=== PATIENT | male | born 1965 | race African-American/Black ===

== ENCOUNTER 2019-06-04 17:25 | Emergency (ER) | payer OTHER, SELFPAY ==
[2019-06-04 17:26] VITALS: BP 142/93; PULSE 61; RESP 18; TEMP 36.6; O2SAT 98; BMI 33.3
--- NOTE | 2019-06-04 17:46 | ED.DCSUM_ITS ---
History of Present Illness Chief Complaint: Cough Informant: Patient Onset: Weeks - 1 Context: Gradual Onset Timing: Continuous Quality: productive of phlegm Location: sore right ribcage x 4d Current Severity: Moderate Maximum Severity: Moderate Worsened by: - - coughing Relieved by: - - breathing easy Associated Symptoms: Nasal Congestion - and nonpurulent rhinorrhea, Chest Pain, Productive Cough. Negative for: Headache, Sinus Pressure, Nausea, Vomiting, Diarrhea, Shortness of Breath, Hemoptysis Narrative: Patient is a [employer], he has felt like he had a cold for the past week, he was advised to stay home from work which she has been doing given the national coronavirus emergency. He is healthy otherwise except for high blood pressure that he takes medication for. He has no asthma. He has had no fevers or shortness of breath. He denies any neck stiffness, headache, neurologic symptoms except for tingling in both of his hands when he wakes up for the last 3 mornings, it goes away when he shakes them after couple minutes. He presents mainly because of pain and soreness in his right chest wall that started 4 days ago, hurts to cough, not necessarily to take a deep breath. He denies any dyspnea that he has developed in that period of time. No recent travel out of the area. He works in [place]. No known contact with a coronavirus infected person. - Past Medical History (1) Hypertension Status: Chronic Past Medical History - Allergies and Home Meds Allergies/Adverse Reactions: Allergies Penicillins Allergy (Verified 06/04/19 17:27) PT UNSURE OF REACTION shellfish derived Allergy (Verified 06/04/19 17:27) Jesús [facility]ician: [facility],Out of [Primary Care Provider] - Lives: Spouse/ Significant Other Smoking Status: Former smoker Review of Systems General: Denies: Chills, Fever, Sweats Eyes: Denies: Visual changes - bilaterally, Diplopia ENT: Reports: Rhinorrhea. Denies: Bilateral ear pain, Sore throat Cardiovascular: Reports: Chest pain. Denies: Palpitations Respiratory: Reports: Cough, Sputum - Occasional since the beginning of the illness. Denies: Dyspnea, Dyspnea on exertion Gastrointestinal: Denies: Abdominal pain, Nausea, Vomiting, Diarrhea, Melena, Hematochezia Genitourinary: Denies: Dysuria, Hematuria, Frequency Musculoskeletal: Denies: Neck pain, Back pain, Swelling, Extremity Pain Skin: Denies: Rash, Wounds Neurological: Denies: Headache, Weakness, Numbness Physical Exam Vital Signs/Narrative: Vital Signs Temp Pulse Resp BP Pulse Ox 06/04/19 17:26 97.8 F 61 18 142/93 H 98 Inital Vital Signs reviewed: Yes General: Well nourished, Well developed, - - Well-appearing, NAD, conversive in full sentences Head: Normocephalic, Atraumatic Eyes: Perrl, EOMI Nose: Normal Inspection, Congestion. Negative for: Purulent Drainage Mouth/Throat: Normal Inspection, No Posterior Erythema, Airway Patent Neck: Supple, Nontender, No Lymphadenopathy, No Meningismus Cardiovascular: Regular rate, Regular rhythm, No murmurs Respiratory: No distress, CTA bilaterally, Chest tenderness - Right anterior- lateral chest wall, near axilla, no crepitance or step-off or signs of injury/ecchymosis Abdomen: Soft, Nontender, Nondistended, Normal bowel sounds Skin: Normal color, No rash, No Trauma Neurological: Alert, Oriented x3, Cranial nerves II-XII grossly intact, Normal Strength, Normal Sensation Psychological: Normal affect, Normal Mood Diagnostic/Tx/Re-eval - Medical Decision Making Exam is normal, except for tenderness in multiple intercostal spaces, fairly well localized. His vital signs are normal and his pulse ox is 98% on room air. Patient is reassured that this is all consistent with intercostal muscle strain. No x-ray is indicated at this time for this patient. He was given a shot of Toradol and advised to use anti-inflammatories as needed at home. He is comfortable with that plan given appropriate discharge instructions. Patient does not have COVID-19 exposure and is not critically ill or clinically septic, has not traveled to/from a region with a CDC level 2 or 3 travel health notice, vital signs are stable without hypoxia, is not ill enough to require admission to the hospital, and at this time does not meet current [facility] requirements for testing for COVID-19. ED Disposition - Plan for ED Patient: Disposition: Home or Assisted Living Diagnosis: Intercostal muscle strain, Viral URI with cough Instructions: ED Upper Resp Infec No Abx Tx Referrals: [facility] Doctor,Out of [Primary Care Provider] - As Needed Additional Instructions: -See additional attached quarantine instructions for what to do with regards to the possibility of coronavirus infection, given that you do not currently meet the [facility] requirements for testing since they require us to conserve the limited testing ability for the sickest, hospitalized patients.
[2019-06-04] MEDS: Ketorolac 30 MG/ML Syringe IM (17:54)
[2019-06-04 17:59] VITALS: O2SAT 97
[2019-06-04 18:31] VITALS: RESP 16
== END 2019-06-04 18:32 | disposition home or self-care (01) ==
LOC: ED 18:10
PROVIDERS: Emergency Provider Emergency Medicine
DX: S29.011A Strain of muscle and tendon of front wall of thorax, initial encounter (principal); J06.9 Acute upper respiratory infection, unspecified; X58.XXXA Exposure to other specified factors, initial encounter; Y93.9 Activity, unspecified; Y92.9 Unspecified place or not applicable; I10 Essential (primary) hypertension; Z79.899 Other long term (current) drug therapy; Z87.891 Personal history of nicotine dependence
CPT/HCPCS: 96372; 99282

== ENCOUNTER → 2020-12-25 12:28 | Outpatient (CLI) | payer OTHER, SELFPAY ==
[2020-12-25 15:26] LABS: ALB/GLOB Ratio 0.8 RATIO (0.9-2.4); AST(SGOT) 25 U/L (15-37); Alanine Aminotransfer ALT/SGPT 44 U/L (16-61); Albumin, Serum 3.4 g/dL (3.2-5.0); Alkaline Phosphatase 66 U/L (45-117); Anion Gap 7 (5-15); BUN 18 mg/dL (7-18); BUN/Creat Ratio 15.1 RATIO (10-20); Chloride 101 mmol/L (98-107); Cholesterol 167 mg/dL (200); Creatinine, Serum 1.19 mg/dL (0.70-1.30); EST Glomerular Filtration Rate 67 mL/min (>60); Est Glom Filt Rate - Afr Amer 81 mL/min (>60); Globulin 4.2 g/dL (2.2-4.2); Glucose 90 mg/dL (74-106); High Density Lipoprotein 41 mg/dL; PSA,Total - Annual Screen 0.58 ng/mL (0.00-4.00); Potassium 3.9 mmol/L (3.5-5.1); Protein, Total 7.6 g/dL (6.4-8.2); Sodium Level 136 mmol/L (136-145); Triglycerides 171 mg/dL; Very Low Density Lipoprotein 34 mg/dL (5-40)
== END ==
LOC: MFPLAB 12:29
PROVIDERS: PCP Family Medicine; Referring Provider Family Medicine; Visit Provider Family Medicine
DX: E78.5 Hyperlipidemia, unspecified (principal); Z12.5 Encounter for screening for malignant neoplasm of prostate
CPT/HCPCS: 36415; 80053; 80061; 84153; G0103

== ENCOUNTER → 2021-07-17 | Outpatient (CLI) | payer OTHER, SELFPAY ==
--- NOTE | 2021-07-17 14:06 | RAD_ITS ---
STUDY: X-RAY CHEST REASON FOR EXAM: Male, 56 years old. WHEEZING TECHNIQUE: PA and lateral views of the chest. COMPARISON: None. FINDINGS: There is an 8.5 cm x 5.7 cm pleural mass along the inferior lateral aspect of the right hemithorax. Correlation with a CT scan is recommended. There is no demonstrated pleural abnormality. Normal size heart. Normal mediastinum and tesha. Normal visualized pulmonary arteries. There is atherosclerotic tortuosity of the aortic arch and descending thoracic aorta. There are degenerative changes of the visualized thoracic spine. Normal visualized ribs, clavicles, and shoulders. There is no demonstrated abnormality of the visualized soft tissue structures of the upper abdomen. RAD/Chest PA and Lateral IMPRESSION: 8.5 cm x 5.7 cm pleural-based mass along the lateral aspect of the right pleural surface as described. Correlation with a CT scan of the thorax is recommended. Electronically Signed: Tom Raymond MD at 14:24 EDT ,
== END | disposition home or self-care (01) ==
PROVIDERS: PCP Family Medicine; Referring Provider Family Medicine; Visit Provider Family Medicine
DX: R06.2 Wheezing (principal)
CPT/HCPCS: 71046

== ENCOUNTER 2021-12-07 13:37 | Inpatient (IN) | payer OTHER, SELFPAY ==
[2021-12-07] VITALS (14 sets, daily range): BP systolic 117–137; BP diastolic 78–116; PULSE 60–109; RESP 16–36; TEMP 36.1–36.9; O2SAT 88–99; BMI 36.6; BMI 36.7
--- NOTE | 2021-12-07 13:53 | RAD_ITS ---
STUDY: X-RAY CHEST REASON FOR EXAM: Male, 56 years old. cough TECHNIQUE: XR Chest 2 Views COMPARISON: 07.17.21 FINDINGS: There is atherosclerotic calcification of the aortic arch with tortuosity. There are diffuse degenerative changes of the visualized thoracic spine. There is degenerative osteoarthritis of the bilateral shoulders. Right lateral pleural-based mass measures 11.5 x 6.1 cm. There is borderline cardiomegaly. Normal mediastinum and tesha. Normal visualized pulmonary arteries. There is no demonstrated abnormality of the visualized soft tissue structures of the upper abdomen. RAD/Chest PA and Lateral IMPRESSION: Enlarging right lung lesion. CT is advised to evaluate. Neoplasm cannot be excluded and is of concern. Electronically Signed: Jaron Mijares MD at 15:34 EDT ,
--- NOTE | 2021-12-07 13:57 | EDS_ITS ---
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 Patient states that when he walks from room to room he feels out of breath, tired. He has not started radiation at this time, he denies any actual fevers or chills. Denies any weight gain. Patient sees [facility] for the renal cancer [facility] <JARVIS Barajas - Last Filed: 12/07/21 17:09> [facility] Medical History (Updated 12/07/21 @ 15:[address] Speedy Bass MD) Atrial fibrillation Cancer Chest pain Congestive heart failure (CHF) CPAP (continuous positive airway pressure) dependence Irregular heart beat Sleep apnea Home Medications amlodipine 5 mg tablet (Norvasc) 5 mg PO DAILY 06/04/19 [History Last Taken Unknown] naproxen 500 mg tablet 500 mg PO DAILY PRN PRN Pain Or Fever 06/04/19 [History Last Taken Unknown] albuterol 90 mcg/actuation aerosol inhaler mcg inhalation 12/07/21 [History Last Taken Unknown] cabozantinib 20 mg tablet 20 mg PO DAILY 12/07/21 [History Last Taken Unknown] carvedilol 6.25 mg tablet 6.25 mg PO BID 12/07/21 [History Last Taken Unknown] cyclobenzaprine 10 mg tablet 10 mg PO TID PRN Spasms 12/07/21 [History Last Taken Unknown] ferrous sulfate 325 mg (65 mg iron) tablet 325 mg PO BID 12/07/21 [History Last Taken Unknown] ondansetron HCl 8 mg tablet 8 mg PO Q8H PRN Nausea 12/07/21 [History Last Taken Unknown] pantoprazole 40 mg tablet,delayed release 40 mg PO DAILY 12/07/21 [History Last Taken Unknown] rosuvastatin 40 mg tablet 40 mg PO DAILY 12/07/21 [History Last Taken Unknown] spironolactone 25 mg tablet 12.5 mg PO DAILY 12/07/21 [History Last Taken U nknown] torsemide 40 mg tablet 40 mg PO DAILY 12/07/21 [History Last Taken Unknown] warfarin 10 mg tablet 7 mg PO DAILY Check with primary doctor 12/07/21 [History Last Taken Unknown] Allergy/AdvReac Type Severity Reaction Status Date / Time aspirin [ASA] Allergy Other Verified 12/07/21 13:38 Penicillins Allergy PT UNSURE Verified 06/04/19 17:27 OF REACTION shellfish derived Allergy Hives Verified 06/04/19 17:27 Social History Smoking Status: Current every day smoker tobacco type: cigarettes ROS <JARVIS Barajas - Last Filed: 12/07/21 17:09> ROS ED ROS Narrative Constitutional: Negative for fever, chills, weight loss. Positive generalized weakness Eyes: Negative for vision loss, vision change, double vision ENT: Negative for any sore throat, ear pain, congestion Cardiovascular: Negative for any chest pain, tightness. Positive palpitation Respiratory: Negative for any sputum production, hemoptysis. Positive for cough, dyspnea, dyspnea on exertion, orthopnea Gastrointestinal: Negative for any abdominal pain, nausea, vomiting, diarrhea, constipation, blood in stool, blood in vomit : Negative for any urinary frequency, dysuria, retention, blood in urine Muscle skeletal: Negative for any muscle joint pain, stiffness, myalgias, arthralgias, neck pain, back pain Neurological: Negative for any headache, syncope, numbness or tingling, dizziness Skin: Negative for any rashes, lumps, itching, abrasions, lacerations Psychiatric: Negative for any depression, anxiety, stress, suicidal ideation, homicidal ideation Hematologic: Negative for any easy bruising, excessive bruising, easy bleeding Allergies: Negative for any eczema, hives, rash EXAM <JARVIS Barajas - Last Filed: 12/07/21 17:09> Physical Exam Narrative Exam Narrative: Vital signs reviewed. HEET: Head normocephalic atraumatic, TMs clear bilaterally. Posterior pharynx is clear, moist mucous membranes. Nares clear bilaterally. Neck: Supple with no lymphadenopathy or tenderness. No signs of meningismus, negative jolt sign. Cardiac: Regular rate and rhythm no murmurs gallops or rubs, equal peripheral pulses bilaterally. Respiratory: Patient shows diminished lung sounds, patient does have crackles/rales to the lower lobes. No chest tenderness. Patient is tachypneic Abdomen: Soft, nontender, nondistended. No abdominal bruit or pulsatile masses. No hepatosplenomegaly Extremities: No peripheral edema, no signs of gross trauma or deformity. Active full range of motion of all extremities. Neuro: Cranial nerves II through XII intact, no focal neurological deficits. Skin: Clean dry and intact with no rash, purpura, petechiae, vesicles or pustules. Backs/flank: No CVA tenderness, no midline spinal tenderness, no deformity. Psych: Normal mood and affect. No SI, HI or acute psychosis. Const Vital Signs: 12/07/21 13:38 12/07/21 14:19 12/07/21 14:11 Temperature 97.2 F L Temperature Source Temporal Pulse Rate 93 103 H Respiratory Rate 24 H 36 H Respiratory Effort Labored Accessory Muscle Use Respiratory Pattern Tachypnea Blood Pressure 126/97 H Blood Pressure Mean 106 Pulse Ox 99 Oxygen Delivery Method Room Air Oxygen Flow Rate (L/min) 12/07/21 14:11 12/07/21 14:53 12/07/21 14:56 Temperature Temperature Source Pulse Rate 108 H Respiratory Rate 21 H 20 H Respiratory Effort Respiratory Pattern Tachypnea Blood Pressure Blood Pressure Mean Pulse Ox 93 Oxygen Delivery Method Room Air Room Air Oxygen Flow Rate (L/min) 12/07/21 15:00 12/07/21 16:29 12/07/21 15:45 Temperature 98.4 F Temperature Source Temporal Pulse Rate 96 98 Respiratory Rate 18 24 H Respiratory Effort Respiratory Pattern Blood Pressure 135/96 H 134/78 H Blood Pressure Mean 109 96 Pulse Ox 98 97 88 Oxygen Delivery Method Room Air Nasal Cannula Room Air Oxygen Flow Rate (L/min) 2 <Dr. Speedy Bass MD - Last Filed: 12/07/21 16:50> Physical Exam Const Vital Signs: 12/07/21 13:38 12/07/21 14:19 12/07/21 14:11 Temperature 97.2 F L Temperature Source Temporal Pulse Rate 93 103 H Respiratory Rate 24 H 36 H Respiratory Effort Labored Accessory Muscle Use Respiratory Pattern Tachypnea Blood Pressure 126/97 H Blood Pressure Mean 106 Pulse Ox 99 Oxygen Delivery Method Room Air Oxygen Flow Rate (L/min) 12/07/21 14:11 12/07/21 14:53 12/07/21 14:56 Temperature Temperature Source Pulse Rate 108 H Respiratory Rate 21 H 20 H Respiratory Effort Respiratory Pattern Tachypnea Blood Pressure Blood Pressure Mean Pulse Ox 93 Oxygen Delivery Method Room Air Room Air Oxygen Flow Rate (L/min) 12/07/21 15:00 12/07/21 16:29 12/07/21 15:45 Temperature 98.4 F Temperature Source Temporal Pulse Rate 96 98 Respiratory Rate 18 24 H Respiratory Effort Respiratory Pattern Blood Pressure 135/96 H 134/78 H Blood Pressure Mean 109 96 Pulse Ox 98 97 88 Oxygen Delivery Method Room Air Nasal Cannula Room Air Oxygen Flow Rate (L/min) 2 MDM <JARVIS Barajas - Last Filed: 12/07/21 17:09> [facility] Lab Data Labs: Laboratory Results - last 24 hr 12/07/21 12/07/21 12/07/21 14:15 14:15 14:15 WBC 6.1 RBC 5.15 Hgb 16.0 Hct 46.6 MCV 90.5 MCH 31.1 MCHC 34.3 RDW Std Deviation 54.9 H RDW Coeff of Lizzie 16.5 H Plt Count 231 MPV 11.0 Immature Gran % (Auto) 0.300 Neut % (Auto) 70.8 H Lymph % (Auto) 23.4 [place] % (Auto) 4.3 Eos % (Auto) 0.7 Baso % (Auto) 0.5 Absolute Neuts (auto) 4.3 Absolute Lymphs (auto) 1.42 Nucleated RBC % 0 PT 19.3 H INR 1.7 Sodium 142 Potassium 3.5 Chloride 108 H Carbon Dioxide 25.0 Anion Gap 9 BUN 20 H Creatinine 1.27 Estim Creat Clear Calc 66.26 Est GFR (MDRD) Af Amer 75 Est GFR (MDRD) Non-Af 62 BUN/Creatinine Ratio 15.7 Glucose 135 H Calcium 9.6 Troponin I High Sens 45 B-Natriuretic Peptide 12/07/21 14:15 WBC RBC Hgb Hct MCV MCH MCHC RDW Std Deviation RDW Coeff of Lizzie Plt Count MPV Immature Gran % (Auto) Neut % (Auto) Lymph % (Auto) [place] % (Auto) Eos % (Auto) Baso % (Auto) Absolute Neuts (auto) Absolute Lymphs (auto) Nucleated RBC % PT INR Sodium Potassium Chloride Carbon Dioxide Anion Gap BUN Creatinine Estim Creat Clear Calc Est GFR (MDRD) Af Amer Est GFR (MDRD) Non-Af BUN/Creatinine Ratio Glucose Calcium Troponin I High Sens B-Natriuretic Peptide 686.4 H Radiography Diagnostic Testing: Clinical Impression(s) from Imaging Studies Chest X-Ray 12/07/21 13:53 IMPRESSION: Enlarging right lung lesion. CT is advised to evaluate. Neoplasm cannot be excluded and is of concern. Electronically Signed: Jaron Mijares MD at 15:34 EDT , Chest CTA 12/07/21 15:46 IMPRESSION: 1. There is an expansile destructive mass of the lateral 6th right rib measuring 77 x 54mm. Given the patients history, this is likely a metastatic bone focus. 2. No demonstrated pulmonary embolism or arterial dissection. 3. 58 mm mass of the right kidney is consistent with patient''s known history of renal cell carcinoma. Electronically Signed: Jaron Mijares MD at 16:52 EDT , EKG A. fib: Attestation: I personally reviewed and interpreted this EKG as follows: Comments: Atrial fibrillation with a rate of 100, QRS duration was 92 ms, there is no acute ST elevation, no acute infarct noted. Treatment and Re-Evaluation Narrative: Patient presents to the emergency department in mild respiratory distress, weakness over the last week. Patient also states that he thinks his A. fib is getting worse. Patient is in atrial fibrillation however is a controlled rate of 90-105. Patient is tachypneic, he did receive a full cardiac, respiratory work-up. Patient's labs show a troponin of 45 which is negative, patient's BNP was 686.4, this is elevated. Patient's remainder the labs are unremarkable. Patient's chest x-ray does show enlarging right lung lesion, CT is advised to evaluate, neoplasm cannot be excluded and is of concern. However this has been ongoing and he gets treatment at the [facility]. While patient was resting in the room, patient was 85% on room air, patient was then placed on 2 L. Patient was given 40 mg of IV Lasix. At this time I believe the patient would be best served in the hospital to be diuresed. Patient is agreeable with the plan. Upon talking to the hospitalist, they did request a CTA of the chest to rule out any pulmonary embolus.Patient CT of the chest shows expansive destructive mass of the lateral sixth rib measuring 77 x 54 mm. No demonstration of pulmonary embolism or artery dissection. There is also 58 mm mass in the right kidney which is consistent with the patient's known history of renal cell carcinoma. At this time, patient is now stable for admission for CHF exacerbation, hypoxia. Patient will be admitted to Dr. Pitts <Dr. Speedy Bass MD - Last Filed: 12/07/21 16:50> [facility] MDM Narrative Medical decision making narrative: Seen and evaluated independently and in conjunction with [facility]. Agree with notes above unless documented otherwise. Patient with palpitations and dyspnea that feels like his rapid A. fib felt in the past. However this time, he has been using a rescue inhaler that has been helping his breathing temporarily. He denies any thoracic pain except for the mass on his chest wall which is not new. On exam, he has expiratory wheezes and a few rhonchi at the bases. No peripheral edema nor calf tenderness. Poss mild JVD. Heart is irregular and mildly tachycardic around 105 occasionally up to 120 but for the most part in the low 100s. Patient was given albuterol did help but only transiently. Chest x-ray 1 view on my interpretation shows possibly mild CHF but not significantly different than his prior. There is also a right lung mass that is a little larger, he has had this previously scanned with CT we do not need to repeat that now since he is already being followed for that and due for radiation here soon. While getting albuterol, which is with supplemental oxygen, he became transiently somnolent and desatted down to 85%. He is not on home oxygen. We placed him on 2 L and he is at 98 for the most part, anywhere between 94-100. We are giving him IV diuretic, and plan is for admission to PCU. He did pull up an echocardiogram from 09/26/2021, done at [facility]. It showed systolic CHF with an EF of 40% and 3+ mitral regurgitation with a steady- jet stream from his mitral valve. Lab Data Attestation: I reviewed the patient's lab results. Labs: Laboratory Results - last 24 hr 12/07/21 12/07/21 12/07/21 14:15 14:15 14:15 WBC 6.1 RBC 5.15 Hgb 16.0 Hct 46.6 MCV 90.5 MCH 31.1 MCHC 34.3 RDW Std Deviation 54.9 H RDW Coeff of Lizzie 16.5 H Plt Count 231 MPV 11.0 Immature Gran % (Auto) 0.300 Neut % (Auto) 70.8 H Lymph % (Auto) 23.4 [place] % (Auto) 4.3 Eos % (Auto) 0.7 Baso % (Auto) 0.5 Absolute Neuts (auto) 4.3 Absolute Lymphs (auto) 1.42 Nucleated RBC % 0 PT 19.3 H INR 1.7 Sodium 142 Potassium 3.5 Chloride 108 H Carbon Dioxide 25.0 Anion Gap 9 BUN 20 H Creatinine 1.27 Estim Creat Clear Calc 66.26 Est GFR (MDRD) Af Amer 75 Est GFR (MDRD) Non-Af 62 BUN/Creatinine Ratio 15.7 Glucose 135 H Calcium 9.6 Troponin I High Sens 45 B-Natriuretic Peptide 12/07/21 14:15 WBC RBC Hgb Hct MCV MCH MCHC RDW Std Deviation RDW Coeff of Lizzie Plt Count MPV Immature Gran % (Auto) Neut % (Auto) Lymph % (Auto) [place] % (Auto) Eos % (Auto) Baso % (Auto) Absolute Neuts (auto) Absolute Lymphs (auto) Nucleated RBC % PT INR Sodium Potassium Chloride Carbon Dioxide Anion Gap BUN Creatinine Estim Creat Clear Calc Est GFR (MDRD) Af Amer Est GFR (MDRD) Non-Af BUN/Creatinine Ratio Glucose Calcium Troponin I High Sens B-Natriuretic Peptide 686.4 H Radiography Diagnostic Testing: Clinical Impression(s) from Imaging Studies Chest X-Ray 12/07/21 13:53 IMPRESSION: Enlarging right lung lesion. CT is advised to evaluate. Neoplasm cannot be excluded and is of concern. Electronically Signed: Jaron Mijares MD at 15:34 EDT , Chest CTA 12/07/21 15:46 IMPRESSION: 1. There is an expansile destructive mass of the lateral 6th right rib measuring 77 x 54mm. Given the patients history, this is likely a metastatic bone focus. 2. No demonstrated pulmonary embolism or arterial dissection. 3. 58 mm mass of the right kidney is consistent with patient''s known history of renal cell carcinoma. Electronically Signed: Jaron Mijares MD at 16:52 EDT Reading Location ID and State: [facility] / [place] , Service support , Rhythm Strip Rhythm Strip: A-fib Rate: 105 Ectopy: None EKG Initial EKG: Attestation: I personally reviewed and interpreted this EKG as follows: Interpretation: No Acute Injury Pattern and Atrial Fibrillation Prior EKG tracings: available for review Prior: Unchanged Discharge Plan Dx/Rx/DC Orders Clinical Impression: Acute exacerbation of CHF (congestive heart failure), Systolic CHF, acute, Hypoxemia, Atrial fibrillation with RVR Disposition Disposition: Acute Care [facility]
--- NOTE | 2021-12-07 13:58 | NURSING ---
NO OLD EKGS
[2021-12-07] MEDS: Albuterol 2.5 MG/3 ML VIAL.NEB. INHALATION ×2 (14:06→19:48)
[2021-12-07 14:26] LABS: Absolute Lymphocyte Count 1.42 X10^3/uL (0.83-4.51); Absolute Neutrophil Count 4.3 X10^3/uL (2.0-7.7); Basophil# 0.03 X10^3/uL; Basophil% 0.5 % (0-1); Eosinophil# 0.04 X10^3/uL; Eosinophils% 0.7 % (0-5); Hematocrit 46.6 % (40-54); Lymphocyte # 1.42 X10^3/ul (0.83-4.51); Lymphocyte % 23.4 % (19-41); Mean Corp Hgb Conc 34.3 g/dL (32-36); Mean Corpuscular Hgb 31.1 pg (27.0-32.0); Mean Corpuscular Volume 90.5 fL (80-94); Monocyte# 0.26 X10^3/uL; Monocyte% 4.3 % (0-10); NRBC Flagged by Analyzer 0 % (0-5); Neutrophil # 4.31 X10^3/uL (2.7-7.7); Neutrophil % 70.8 % (47-70); Platelet Count 231 K/mm3 (150-450); RBC Distribution Width CV 16.5 % (11.6-14.6); RBC Distribution Width SD 54.9 fl (35.1-43.9); Red Blood Count 5.15 M/mm3 (4.6-6.2); White Blood Count 6.1 K/mm3 (4.4-11.0)
[2021-12-07 14:35] LABS: International Normalized Ratio 1.7; Prothrombin Time (Protime)PT. 19.3 SECONDS (11.7-14.9)
[2021-12-07 14:42] LABS: BNP,B-Type NATRIURETIC PEPTIDE 686.4 pg/mL (0-100)
[2021-12-07 14:43] LABS: Anion Gap 9 (5-15); BUN 20 mg/dL (7-18); BUN/Creat Ratio 15.7 RATIO (10-20); Calcium,Total 9.6 mg/dL (8.5-10.1); Chloride 108 mmol/L (98-107); Creatinine, Serum 1.27 mg/dL (0.70-1.30); EST Glomerular Filtration Rate 62 mL/min (>60); Est Glom Filt Rate - Afr Amer 75 mL/min (>60); Estimated Creatinine Clearance 66.26 ml/min; Glucose 135 mg/dL (74-106); Potassium 3.5 mmol/L (3.5-5.1); Sodium Level 142 mmol/L (136-145); Troponin-I HS 45 pg/mL (3.0-78.0)
[2021-12-07] MEDS: Ipratropium/Albuterol Sulfate 3 ML AMPUL.NEB INHALATION (14:51)
--- NOTE | 2021-12-07 15:46 | CT_ITS ---
EXAM: CT ANGIOGRAPHY CHEST WITHOUT AND WITH INTRAVENOUS CONTRAST CLINICAL INDICATION: Shortness of breath concern for PE renal cancer TECHNIQUE: Helically acquired angiography images were obtained of the chest without and with intravenous contrast. This CT exam was performed using one or more of the following dose reduction techniques: automated exposure control, adjustment of the mA and/or kV according to patient size, and/or use of iterative reconstruction technique. This report was created using X[employer] report generation technology. MIP reconstructed images were created and reviewed. CONTRAST: IV 100mL [id number] RADIATION DOSE: CTDIvol = 18.6 mGy, DLP = 588.93 mGy-cm COMPARISON: None. FINDINGS: PULMONARY ARTERIES: No demonstrated pulmonary embolism or arterial dissection. AORTA: There is atherosclerotic calcification of the aortic arch with tortuosity and elongation of the aortic arch and descending thoracic aorta. Normal in caliber. No evidence of dissection. GREAT VESSELS OF AORTIC ARCH: Unremarkable. Normal in caliber. No evidence of dissection. LUNGS AND PLEURAL SPACES: Unremarkable. No mass. No consolidation or edema. No pleural effusion or thickening. No pneumothorax. HEART: There are calcifications of the coronary arteries. No pericardial effusion. No signs of right heart strain, ratio of right ventricle to left ventricle measures less than 1. MEDIASTINUM: Unremarkable. No mediastinal or hilar adenopathy. Esophagus is unremarkable. No hiatal hernia. THYROID: Unremarkable. No thyroid lesions. BONES/JOINTS: There is an expansile destructive mass of the lateral 6th right rib measuring 77 x 54mm. Given the patients history, this is likely a metastatic bone focus. There are degenerative changes of the shoulders. There are multi-level degenerative changes of the thoracic spine. KIDNEYS AND URETERS: 58 mm mass of the right kidney is consistent with patient''s known history of renal cell carcinoma. CT/CTA Chest W/WO Contrast IMPRESSION: 1. There is an expansile destructive mass of the lateral 6th right rib measuring 77 x 54mm. Given the patients history, this is likely a metastatic bone focus. 2. No demonstrated pulmonary embolism or arterial dissection. 3. 58 mm mass of the right kidney is consistent with patient''s known history of renal cell carcinoma. Electronically Signed: Jaron Mijares MD at 16:52 EDT ,
[2021-12-07] MEDS: Furosemide 40 MG/4 ML Vial IV ×2 (15:48→21:22)
--- NOTE | 2021-12-07 16:49 | NURSING ---
PCU VIRIDIANA ACUTE CHF EXAC, HYPOXEMIA,, AFIB W RVR
--- NOTE | 2021-12-07 17:18 | ECHOL_ITS ---
Reason For Study: CHF Procedure This was a limited 2D transthoracic echocardiogram. Exam performed portable in patient room. Left Ventricle Normal LV size. Moderate concentric left ventricular hypertrophy. The estimated ejection fraction is 35 %. There is moderate global hypokinesis of the left ventricle. Right Ventricle Normal RV size. Normal systolic function. Atria The left atrium is moderately enlarged. The right atrium is moderately enlarged. Mitral Valve Normal mitral valve. Tricuspid Valve Normal tricuspid valve. Aortic Valve Normal aortic valve. Trisinus/trileaflet aortic valve. Pulmonic Valve Normal pulmonic valve. Great Vessels Normal aortic root. The pulmonary artery is normal size. Inferior vena cava collapse with respiration. Pericardium/Pleural No pericardial effusion. MMode/2D Measurements & Calculations LVIDd: 5.3 cm IVSd: 1.7 cm Ao root diam: 2.8 cm LVIDs: 3.9 cm LVPWd: 1.9 cm FS: 26.6 % LAV(MOD-bp): 102.2 ml LVAd ap4: 40.6 cm2 LVAd ap2: 39.0 cm2 LAV(MOD-bp) Indexed: 44.1 ml/m2 LVLd ap4: 8.8 cm LVLd ap2: 8.4 cm LAV(MOD-sp2): 100.3 ml EDV(MOD-sp4): 151.9 ml EDV(MOD-sp2): 144.5 ml LAV(MOD-sp4): 95.5 ml EDV(sp4-el): 159.5 ml EDV(sp2-el): 153.5 ml LVAs ap4: 35.3 cm2 LVAs ap2: 32.3 cm2 LVLs ap4: 8.3 cm LVLs ap2: 8.5 cm ESV(MOD-sp4): 123.4 ml ESV(MOD-sp2): 104.1 ml ESV(sp4-el): 127.3 ml ESV(sp2-el): 104.3 ml EF(MOD-sp4): 18.8 % EF(MOD-sp2): 27.9 % EF(sp4-el): 20.2 % SV(MOD-sp4): 28.5 ml SV(MOD-sp2): 40.3 ml SV(sp4-el): 32.1 ml LA dimension(2D): 5.1 cm LA A4 area: 28.7 cm2 RA A4 area: 28.3 cm2 ECHO/Echo, Limited Study Interpretation Summary Normal LV size. Moderate concentric left ventricular hypertrophy. The estimated ejection fraction is 35 %. There is moderate global hypokinesis of the left ventricle. The left atrium is moderately enlarged. The right atrium is moderately enlarged. Ordering Physician: Mehrdad Villalpando Referring Physician: Bari Turner MD Performed By: Unique Herzog RCS
[2021-12-07 18:33] LABS: Troponin-I HS 46 pg/mL (3.0-78.0)
[2021-12-07] MEDS: Potassium Chloride Oral Tablet 20 MEQ 40 MEQ PO (18:34)
--- NOTE | 2021-12-07 18:54 | PCM.HP.STD ---
Documented by User: JARVIS Conley 12/07/21 19:13 HPI - General General Date of Admission: 12/07/21 Date of Service: 12/07/21 Chief Complaint: Acute on Chronic Systolic CHF HPI Narrative YEFRI YANEZ, is a 56 M who presents with complaints of shortness of breath and cough and worsening weakness x1 week. Patient has a history of hypertension, congestive heart failure, atrial fibrillation and right-sided renal cancer with mets to his right long. The metastases to his right lung have encroached on his ribs. Patient states that he has not started radiation at this time but is currently on p.o. chemotherapy. Patient follows at [facility] for his oncology needs. PFSH Medical History Atrial fibrillation Cancer Chest pain Congestive heart failure (CHF) CPAP (continuous positive airway pressure) dependence Hypertension Irregular heart beat Sleep apnea Smoker Home Medications amlodipine 5 mg tablet (Norvasc) 5 mg PO DAILY 06/04/19 [History Last Taken Unknown] naproxen 500 mg tablet 500 mg PO DAILY PRN PRN Pain Or Fever 06/04/19 [History Last Taken Unknown] albuterol 90 mcg/actuation aerosol inhaler 90 mcg inhalation Q4H PRN PRN breathing 12/07/21 [History Last Taken Unknown] cabozantinib 20 mg tablet 20 mg PO DAILY 12/07/21 [History Last Taken Unknown] carvedilol 6.25 mg tablet 6.25 mg PO BID 12/07/21 [History Last Taken Unknown] cyclobenzaprine 10 mg tablet 10 mg PO TID PRN Spasms 12/07/21 [History Last Taken Unknown] ferrous sulfate 325 mg (65 mg iron) tablet 325 mg PO BID 12/07/21 [History Last Taken Unknown] ondansetron HCl 8 mg tablet 8 mg PO Q8H PRN Nausea 12/07/21 [History Last Taken Unknown] pantoprazole 40 mg tablet,delayed release 40 mg PO DAILY 12/07/21 [History Last Taken Unknown] rosuvastatin 40 mg tablet 40 mg PO DAILY 12/07/21 [History Last Taken Unknown] spironolactone 25 mg tablet 12.5 mg PO DAILY 12/07/21 [History Last Taken Unknown] torsemide 40 mg tablet 40 mg PO DAILY 12/07/21 [History Last Taken Unknown] warfarin 10 mg tablet 7 mg PO DAILY Check with primary doctor 12/07/21 [History Last Taken Unknown] Allergy/AdvReac Type Severity Reaction Status Date / Time aspirin [ASA] Allergy Other Verified 12/07/21 13:38 Penicillins Allergy PT UNSURE Verified 06/04/19 17:27 OF REACTION shellfish derived Allergy Hives Verified 06/04/19 17:27 Social History Smoking Status: Current every day smoker tobacco type: cigars ROS Constitutional Constitutional: Reports fatigue, malaise and weakness; Denies anorexia, chills or fever(s) Cardiovascular Cardiovascular: Reports edema and palpitations; Denies chest pain or syncope Respiratory/Chest Respiratory/Chest: Reports cough and shortness of breath with exertion; Denies shortness of breath at rest Gastrointestinal Gastrointestinal: Denies abdominal pain, constipation, diarrhea, nausea or vomiting Genitourinary Genitourinary: Denies dysuria Musculoskeletal Musculoskeletal: Denies back pain, extremity pain, joint pain or joint stiffness Integumentary Integumentary: Denies dry skin Neurologic Neurologic: Denies abnormal gait, abnormal speech, confusion or dizziness Psychiatric Psychiatric: Denies anxiety or depression Endocrine Endocrinology: Denies change in body appearance Hematologic/Lymphatic Hematologic/Lymphatic: Denies anemia Vital Signs Vital Signs Vital Signs: 12/07/21 13:38 12/07/21 14:19 12/07/21 14:11 Temperature 97.2 F L Temperature Source Temporal Pulse Rate 93 103 H Respiratory Rate 24 H 36 H Respiratory Effort Labored Accessory Muscle Use Respiratory Depth Respiratory Pattern Tachypnea Blood Pressure 126/97 H Blood Pressure [BP] Blood Pressure Mean 106 Blood Pressure Mean [BP] Blood Pressure Source Blood Pressure Source [BP] Blood Pressure Position Blood Pressure Position [BP] Blood Pressure Location Blood Pressure Location [BP] Pulse Ox 99 Oxygen Delivery Method Room Air Oxygen Flow Rate (L/min) 12/07/21 14:11 12/07/21 14:53 12/07/21 14:56 Temperature Temperature Source Pulse Rate 108 H Respiratory Rate 21 H 20 H Respiratory Effort Respiratory Depth Respiratory Pattern Tachypnea Blood Pressure Blood Pressure [BP] Blood Pressure Mean Blood Pressure Mean [BP] Blood Pressure Source Blood Pressure Source [BP] Blood Pressure Position Blood Pressure Position [BP] Blood Pressure Location Blood Pressure Location [BP] Pulse Ox 93 Oxygen Delivery Method Room Air Room Air Oxygen Flow Rate (L/min) 12/07/21 15:00 12/07/21 16:29 12/07/21 15:45 Temperature 98.4 F Temperature Source Temporal Pulse Rate 96 98 Respiratory Rate 18 24 H Respiratory Effort Respiratory Depth Respiratory Pattern Blood Pressure 135/96 H 134/78 H Blood Pressure [BP] Blood Pressure Mean 109 96 Blood Pressure Mean [BP] Blood Pressure Source Blood Pressure Source [BP] Blood Pressure Position Blood Pressure Position [BP] Blood Pressure Location Blood Pressure Location [BP] Pulse Ox 98 97 88 Oxygen Delivery Method Room Air Nasal Cannula Room Air Oxygen Flow Rate (L/min) 2 12/07/21 17:25 12/07/21 17:43 12/07/21 17:55 Temperature 97.4 F L Temperature Source Temporal Pulse Rate 91 90 Respiratory Rate 20 H Respiratory Effort Respiratory Depth Respiratory Pattern Blood Pressure 137/116 H Blood Pressure [BP] 122/100 H Blood Pressure Mean 123 Blood Pressure Mean [BP] 107 Blood Pressure Source Monitor Blood Pressure Source [BP] Monitor Blood Pressure Position Semi-Fowlers Blood Pressure Position [BP] Semi-Fowlers Blood Pressure Location Left Arm Blood Pressure Location [BP] Left Arm Pulse Ox 99 Oxygen Delivery Method Nasal Cannula Oxygen Flow Rate (L/min) 2 12/07/21 17:45 12/07/21 17:25 Temperature 97.4 F L Temperature Source Temporal Pulse Rate 90 Respiratory Rate 20 H Respiratory Effort Normal Non-Labored Respiratory Depth Normal Respiratory Pattern Normal Blood Pressure 122/100 H Blood Pressure [BP] Blood Pressure Mean 107 Blood Pressure Mean [BP] Blood Pressure Source Blood Pressure Source [BP] Blood Pressure Position Blood Pressure Position [BP] Blood Pressure Location Blood Pressure Location [BP] Pulse Ox 99 Oxygen Delivery Method Nasal Cannula Nasal Cannula Oxygen Flow Rate (L/min) 2 2 Weight Weight: 256 lb Body Mass Index (BMI) 36.7 Physical Exam Const alert, oriented x3 and no apparent distress General Appearance: cooperative HEENT normocephalic and head/scalp atraumatic Eyes conjunctivae normal and no scleral icterus Neck supple General: trachea midline Resp Effort and Inspection: able to speak in complete sentences, symmetric chest movement and tachypneic Auscultation: crackles bilateral base and diminished lung sounds Cardio regular rate, regular rhythm, S1 normal heart sound, S2 normal heart sound and peripheral pulses 2+ throughout Rate: tachycardic GI normal to inspection, nondistended, normoactive bowel sounds, soft to palpation and non-tender Extremity normal capillary refill and no clubbing, cyanosis or edema Skin Lesions: no lesions Rashes: no rashes Neuro no focal motor deficits and no sensory deficits noted Speech: speech normal Psych thought process normal, cooperative and affect normal Appearance: appropriate Results Lab / Micro Data Result Diagrams: 12/07/21 14:15 12/07/21 14:15 Labs: Laboratory Results - last 24 hr 12/07/21 14:15: WBC 6.1, RBC 5.15, Hgb 16.0, Hct 46.6, MCV 90.5, MCH 31.1, MCHC 34.3, RDW Std Deviation 54.9 H, RDW Coeff of Lizzie 16.5 H, Plt Count 231, MPV 11.0, Immature Gran % (Auto) 0.300, Neut % (Auto) 70.8 H, Lymph % (Auto) 23.4, [place] % (Auto) 4.3, Eos % (Auto) 0.7, Baso % (Auto) 0.5, Absolute Neuts (auto) 4.3, Absolute Lymphs (auto) 1.42, Nucleated RBC % 0 12/07/21 14:15: PT 19.3 H, INR 1.7 12/07/21 14:15: Sodium 142, Potassium 3.5, Chloride 108 H, Carbon Dioxide 25.0, Anion Gap 9, BUN 20 H, Creatinine 1.27, Estim Creat Clear Calc 66.26, Est GFR (MDRD) Af Amer 75, Est GFR (MDRD) Non-Af 62, BUN/Creatinine Ratio 15.7, Glucose 135 H, Calcium 9.6, Troponin I High Sens 45 12/07/21 14:15: B-Natriuretic Peptide 686.4 H 12/07/21 16:33: Troponin I High Sens 46 Micro: Microbiology 12/07/21 Unknown Nasal Secretion SARS-CoV-2 & FLU Antigen (Rapid) - Final Rhythm Strip Rhythm Strip: A-fib Rate: 105 Ectopy: None Radiology Impression Chest X-Ray 12/07/21 13:53 IMPRESSION: Enlarging right lung lesion. CT is advised to evaluate. Neoplasm cannot be excluded and is of concern. Electronically Signed: Jaron Mijares MD at 15:34 EDT , Chest CTA 12/07/21 15:46 IMPRESSION: 1. There is an expansile destructive mass of the lateral 6th right rib measuring 77 x 54mm. Given the patients history, this is likely a metastatic bone focus. 2. No demonstrated pulmonary embolism or arterial dissection. 3. 58 mm mass of the right kidney is consistent with patient''s known history of renal cell carcinoma. Electronically Signed: Jaron Mijares MD at 16:52 EDT , Assessment & Plan Assessment/Plan (1) Acute exacerbation of CHF (congestive heart failure): PLAN: Plan 1. Hypoxia secondary to acute on chronic systolic congestive heart failure -Admit to PCU -IV Lasix every 8 hours -Continue spironolactone -Torsemide on hold while getting IV Lasix -BMP in a.m. -Limited echo study ordered for a.m. -BNP elevated 686.4 -Oxygen per protocol, currently on 2 L nasal cannula oxygen. Patient not on any oxygen at baseline 2. Atrial fibrillation with RVR -Continue Coumadin 8 mg daily and carvedilol -PT/INR subtherapeutic 1.7, warfarin 5 mg x 1 given -Daily PT/INR 3. Renal cancer with mets to lung -Continue cabozantinib -Chemo precautions ordered 4. Hypertension -Vital signs per protocol -Continue amlodipine 5. Hyperlipidemia -continue rosuvastatin DVT prophylaxis-patient on Coumadin chronically, INR daily This patient was seen by Alexandria Gallegos NP-C under the supervision of Dr. Villalpando. 30 minutes spent in clinical coordination of patient's plan of care. Documented by User: Dr. Mehrdad Villalpando, DO 12/07/21 19:24 HPI - General General Date of Admission: 12/07/21 [facility] Medical History Atrial fibrillation Cancer Chest pain Congestive heart failure (CHF) CPAP (continuous positive airway pressure) dependence Hypertension Irregular heart beat Sleep apnea Smoker Home Medications amlodipine 5 mg tablet (Norvasc) 5 mg PO DAILY 06/04/19 [History Last Taken Unknown] naproxen 500 mg tablet 500 mg PO DAILY PRN PRN Pain Or Fever 06/04/19 [History Last Taken Unknown] albuterol 90 mcg/actuation aerosol inhaler 90 mcg inhalation Q4H PRN PRN breathing 12/07/21 [History Last Taken Unknown] cabozantinib 20 mg tablet 20 mg PO DAILY 12/07/21 [History Last Taken Unknown] carvedilol 6.25 mg tablet 6.25 mg PO BID 12/07/21 [History Last Taken Unknown] cyclobenzaprine 10 mg tablet 10 mg PO TID PRN Spasms 12/07/21 [History Last Taken Unknown] ferrous sulfate 325 mg (65 mg iron) tablet 325 mg PO BID 12/07/21 [History Last Taken Unknown] ondansetron HCl 8 mg tablet 8 mg PO Q8H PRN Nausea 12/07/21 [History Last Taken Unknown] pantoprazole 40 mg tablet,delayed release 40 mg PO DAILY 12/07/21 [History Last Taken Unknown] rosuvastatin 40 mg tablet 40 mg PO DAILY 12/07/21 [History Last Taken Unknown] spironolactone 25 mg tablet 12.5 mg PO DAILY 12/07/21 [History Last Taken Unknown] torsemide 40 mg tablet 40 mg PO DAILY 12/07/21 [History Last Taken Unknown] warfarin 10 mg tablet 7 mg PO DAILY Check with primary doctor 12/07/21 [History Last Taken Unknown] Allergy/AdvReac Type Severity Reaction Status Date / Time aspirin [ASA] Allergy Other Verified 12/07/21 13:38 Penicillins Allergy PT UNSURE Verified 06/04/19 17:27 OF REACTION shellfish derived Allergy Hives Verified 06/04/19 17:27 Social History Smoking Status: Current every day smoker tobacco type: cigars Results Lab / Micro Data Result Diagrams: 12/07/21 14:15 12/07/21 14:15 Assessment & Plan Assessment/Plan (1) Acute exacerbation of CHF (congestive heart failure): Charges/Coding Addendum Addendum: Patient was seen and examined today independently of Kelsie Gallegos, he came to the ER today with increasing shortness of breath over the last several days. According to the patient, he has had a history of congestive heart failure which was diagnosed in June of this year along with renal cancer. Patient is taking oral chemo at this time, he is following up with a doctor in [place]. Patient states he is due to start radiation on his cancer this Wednesday. Patient denies any chest pain, he denies any fever or chills. Work-up in the ER included a CBC which showed a normal white blood cell count and hemoglobin, patient's BUN was elevated at 20, glucose was 135, and beta natruretic peptide was 686. Chest x-ray was read out as showing a right lung lesion, however, his CTA was read out as showing a right sixth rib lesion with destruction of the rib. No evidence of any infiltrates were noted on CTA and there was no evidence of any embolus. Patient is currently taking Coumadin-I assume this is due to his atrial fibrillation. On examination he appeared in good health and spirits. Vital signs as documented. Skin warm and dry and without overt rashes. Neck without JVD, neck was supple, trachea midline, thyroid was normal. Lungs clear bilaterally, normal air movement was noted. Heart exam notable for irregular rhythm, normal sounds and absence of murmurs, rubs or gallops. Abdomen unremarkable and without evidence of organomegaly, masses, or abdominal aortic enlargement. Bowel sounds are present, abdomen is not distended. Extremities nonedematous, no cyanosis was noted, no clubbing was noted. Neuro: Cranial nerves II through XII are grossly intact, no focal motor deficits were noted, sensation to light touch and pinprick intact, motor exam 5/5 throughout. Psych: Patient is alert and oriented x3, he does not appear anxious or depressed, he does not appear agitated. Impression: #1 hypoxia secondary to acute on chronic systolic congestive heart failure-according to the emergency room physician, patient's had record of the patient's last echo done this summer which showed an EF of 40%, patient will be admitted to PCU and be placed on IV Lasix and supplemental oxygen, he will be monitored. A limited echocardiogram was ordered for tomorrow. #2 acute on chronic systolic congestive heart failure-patient is currently taking torsemide at home, he will be on IV Lasix here, a limited echocardiogram will be obtained. #3 right renal cancer metastatic to right sixth rib-patient does not have evidence of metastases to the lung on his CTA scan. #4 chronic atrial fibrillation-patient is currently on warfarin but his INR is subtherapeutic, I have elected to give him extra warfarin today and recheck his INR in the morning. Patient is on rate limiting medication (carvedilol) #5 use of chronic 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-patient is subtherapeutic on his warfarin, I have elected to give him more warfarin today and recheck the INR tomorrow. I have reviewed Kelsie Gallegos's history and physical including her medical assessment and plan of care and with the above additions endorse it. Total clinical time spent by myself addressing the patient's medical issues, reviewing the data, and talking with patient's care team: 45 minutes Visit Charges Inpatient E&M: 48115 Init Hosp L3
[2021-12-07] MEDS: cycloBENZAPRine HCl 10 MG Tablet PO (20:09)
[2021-12-07] MEDS: Acetaminophen 325 MG Tablet 650 MG PO (20:09)
[2021-12-07] MEDS: Carvedilol 6.25 MG Tablet PO (21:22)
[2021-12-07] MEDS: Atorvastatin Calcium 80 MG Tablet PO (21:22)
[2021-12-07] MEDS: 0.9% Saline Lock 10 ML Syringe IV (21:22)
[2021-12-07] MEDS: MELATONIN 10 MG TABLET PO (23:17)
[2021-12-08] VITALS (14 sets, daily range): BP systolic 123–149; BP diastolic 100–110; PULSE 71–121; RESP 16–20; TEMP 36.1–36.7; O2SAT 94–98
[2021-12-08] MEDS: Furosemide 40 MG/4 ML Vial IV ×3 (06:21→23:00)
[2021-12-08] MEDS: 0.9% Saline Lock 10 ML Syringe IV ×2 (06:21→15:26)
[2021-12-08] MEDS: Albuterol 2.5 MG/3 ML VIAL.NEB. INHALATION ×3 (06:34→19:11)
[2021-12-08 07:13] LABS: Anion Gap 8 (5-15); BUN 20 mg/dL (7-18); BUN/Creat Ratio 15.4 RATIO (10-20); Calcium,Total 9.4 mg/dL (8.5-10.1); Chloride 108 mmol/L (98-107); EST Glomerular Filtration Rate 60 mL/min (>60); Est Glom Filt Rate - Afr Amer 73 mL/min (>60); Estimated Creatinine Clearance 64.73 ml/min; Glucose 116 mg/dL (74-106); Potassium 3.6 mmol/L (3.5-5.1); Sodium Level 142 mmol/L (136-145)
--- NOTE | 2021-12-08 08:44 | PN.HOSP_ITS ---
Subjective Subjective Patient is a 56-year-old gentleman with history of paroxysmal A. fib on systemic anticoagulation with Coumadin history of renal cell carcinoma involving the right kidney with mets who presented with 1 week history of progressive shortness of breath and cough and assessment of acute hypoxic respiratory failure secondary to CHF made admitted to a monitored bed for further management Objective Data Objective Data Vital Signs: Vital Signs Temp Pulse Resp BP Pulse Ox O2 Del Method O2 Flow Rate 97 F L 88 16 130/100 H 98 Room Air 2 12/08/21 03:30 12/08/21 07:00 12/08/21 06:34 12/08/21 03:30 12/08/21 06:34 12/08/21 06:34 12/07/21 19:15 Oxygen Flow Rate (L/min) 2 Oxygen Delivery Method Room Air Weight: 116.12 kg Body Mass Index (BMI) 36.7 Intake & Output: Intake and Output for Last 24 Hours 12/06/21 12/07/21 12/08/21 23:59 23:59 23:59 Intake Total 120 / 520 400 / 400 Output Total 850 / 850 Balance 120 / -30 -450 / -450 Lab / Micro Data Result Diagrams: 12/07/21 14:15 12/08/21 06:16 Labs: Laboratory Results - last 24 hr 12/07/21 14:15: WBC 6.1, RBC 5.15, Hgb 16.0, Hct 46.6, MCV 90.5, MCH 31.1, MCHC 34.3, RDW Std Deviation 54.9 H, RDW Coeff of Lizzie 16.5 H, Plt Count 231, MPV 11.0, Immature Gran % (Auto) 0.300, Neut % (Auto) 70.8 H, Lymph % (Auto) 23.4, [place] % (Auto) 4.3, Eos % (Auto) 0.7, Baso % (Auto) 0.5, Absolute Neuts (auto) 4.3, Absolute Lymphs (auto) 1.42, Nucleated RBC % 0 12/07/21 14:15: PT 19.3 H, INR 1.7 12/07/21 14:15: Sodium 142, Potassium 3.5, Chloride 108 H, Carbon Dioxide 25.0, Anion Gap 9, BUN 20 H, Creatinine 1.27, Estim Creat Clear Calc 66.26, Est GFR (MDRD) Af Amer 75, Est GFR (MDRD) Non-Af 62, BUN/Creatinine Ratio 15.7, Glucose 135 H, Calcium 9.6, Troponin I High Sens 45 12/07/21 14:15: B-Natriuretic Peptide 686.4 H 12/07/21 16:33: Troponin I High Sens 46 12/08/21 06:16: PT 22.0 H, INR 2.0 12/08/21 06:16: Sodium 142, Potassium 3.6, Chloride 108 H, Carbon Dioxide 26.0, Anion Gap 8, BUN 20 H, Creatinine 1.30, Estim Creat Clear Calc 64.73, Est GFR (MDRD) Af Amer 73, Est GFR (MDRD) Non-Af 60, BUN/Creatinine Ratio 15.4, Glucose 116 H, Calcium 9.4 Micro: Microbiology 12/07/21 Unknown Nasal Secretion SARS-CoV-2 & FLU Antigen (Rapid) - Final Radiography Diagnostic Testing: Radiology Impression Chest X-Ray 12/07/21 13:53 IMPRESSION: Enlarging right lung lesion. CT is advised to evaluate. Neoplasm cannot be excluded and is of concern. Electronically Signed: Jaron Mijares MD at 15:34 EDT , Chest CTA 12/07/21 15:46 IMPRESSION: 1. There is an expansile destructive mass of the lateral 6th right rib measuring 77 x 54mm. Given the patients history, this is likely a metastatic bone focus. 2. No demonstrated pulmonary embolism or arterial dissection. 3. 58 mm mass of the right kidney is consistent with patient''s known history of renal cell carcinoma. Electronically Signed: Jaron Mijares MD at 16:52 EDT , Rhythm Strip Rhythm Strip: A-fib Rate: 105 Ectopy: None Physical Exam Narrative GENERAL: cooperative HEENT: Atraumatic; normocephalic EYES; Anicteric, Normal Conjunctiva NECK; supple, normal thyroid, RESPIRATORY: Diminished to auscultation CARDIOVASCULAR: Regular S1 S2, GI: soft, normoactive bowel sounds, : No Renal angle tenderness; EXTREMITIES: trace edema, no clubbing, MUSCULOSKELETAL: no muscle wasting NEURO: Awake; no lateralizing signs. SKIN: No Rash PSYCH; Flat affect Assessment & Plan Assessment/Plan (1) Acute exacerbation of CHF (congestive heart failure): PLAN: Plan Patient is a 56-year-old gentleman with history of paroxysmal A. fib on systemic anticoagulation with Coumadin history of renal cell carcinoma involving the right kidney with mets who presented with 1 week history of progressive shortness of breath and cough and assessment of acute hypoxic respiratory failure secondary to CHF made admitted to a monitored bed for further management 1. Acute respiratory insufficiency ? Secondary to acute congestive heart failure admitted to a monitored bed with treatment of underlying condition patient placed on supplemental oxygen titrated to keep saturation greater than 90 2. Acute congestive heart failure ? Unspecified EF not known. Patient has been admitted to a monitored bed currently managed with diuretics, strict input and output, fluid restriction and echo ordered for EF assessment 3. Paroxysmal A. fib with RVR ? Rate controlled patient is on systemic anticoagulation with Coumadin INR was subtherapeutic on admission additional dose of warfarin given. Monitoring with daily INR 4. Right renal cell carcinoma ? With mets to the lung patient is currently on cabozantinib did continue 5. Hypertension - Blood pressure controlled, home medications continued with dose adjustment as needed 6. Dyslipidemia -Patient is on statin therapy, continued at home dose 7. Class II obesity with BMI of 36.7 ? Weight loss advised 8. Tobacco dependence - Counseled on cessation, offered nicotine patch for tobacco cravings 9. DVT prophylaxis ? Patient is on warfarin Charges/Coding Visit Charges Inpatient E&M: 06116 Subs Hosp L3
[2021-12-08] MEDS: Carvedilol 6.25 MG Tablet PO ×2 (09:08→23:02)
[2021-12-08] MEDS: Spironolactone 25 MG Tablet 12.5 MG PO (09:08)
[2021-12-08] MEDS: Potassium Chloride Oral Tablet 20 MEQ PO ×2 (09:09→16:35)
[2021-12-08] MEDS: amLODIPine 5 MG Tablet PO (09:10)
[2021-12-08] MEDS: Pantoprazole Sodium 40 MG Tablet PO (09:10)
--- NOTE | 2021-12-08 12:12 | CASEMGMT ---
JOHN ROQUE assessment: Face to Face with patient for initial transition planning/care coordination assessment. JOHN ROQUE introduced self and role at [facility], pt voices understanding and consents to assessment. Pt is sitting up in bed on room air with some SOB. Pt is A/Ox4 and answers all questions appropriately.? Care providers, pharmacy,?and demographics verified. ? Presentation: SOB, weakness over last week, feels like he is in afib-pt states supposed to start radiation for kidney cancer on 12/09 Admitting dx: CHF PCP: Johnny Specialists: getachew Da Silva onc at [facility] Preferred Pharmacy: [facility] Insurance: MMO Prescription Benefit:? MMO Living Will/HPOA: Pt does not have LW/HPOA and declines AD info. LNOK: Tyshawn Vega, Living Arrangements: Pt lives with in 1 story home and states no concerns at home. Pt is independent with ADL's. Transportation: Pt drives self and states no transportation concerns. DME/HHC: Pt has a cpap thru [facility] and states no need for any further DME. Pt states no hx of HHC or SNF. Pt states no concerns with going home at time of discharge. Pt is retired. Pt states smokes cigars daily and occasionally drinks ETOH. Pt voices no further concerns/needs. CM to follow for any further discharge planning/needs. Advised pt to ask for CM if any further questions/concerns/needs arise, voices understanding. Pt Goal: Home ? Plan: Home [place] JOHN ROQUE
[2021-12-08] MEDS: MELATONIN 10 MG TABLET PO (22:59)
[2021-12-08] MEDS: Atorvastatin Calcium 80 MG Tablet PO (23:01)
[2021-12-09] VITALS (7 sets, daily range): BP systolic 112–128; BP diastolic 88–115; PULSE 61–111; RESP 16–18; TEMP 36.1–37.1; O2SAT 92–96
[2021-12-09 06:29] LABS: Absolute Lymphocyte Count 1.42 X10^3/uL (0.83-4.51); Basophil# 0.03 X10^3/uL; Basophil% 0.5 % (0-1); Eosinophil# 0.09 X10^3/uL; Eosinophils% 1.5 % (0-5); Hematocrit 47.3 % (40-54); Lymphocyte # 1.42 X10^3/ul (0.83-4.51); Lymphocyte % 24.1 % (19-41); Mean Corp Hgb Conc 33.8 g/dL (32-36); Mean Corpuscular Hgb 30.7 pg (27.0-32.0); Mean Corpuscular Volume 90.6 fL (80-94); Mean Platelet Vol. 11.1 fl (6.2-12.0); Monocyte# 0.34 X10^3/uL; Monocyte% 5.8 % (0-10); NRBC Flagged by Analyzer 0 % (0-5); Neutrophil # 3.98 X10^3/uL (2.7-7.7); Neutrophil % 67.8 % (47-70); Platelet Count 243 K/mm3 (150-450); RBC Distribution Width CV 16.5 % (11.6-14.6); RBC Distribution Width SD 54.5 fl (35.1-43.9); Red Blood Count 5.22 M/mm3 (4.6-6.2); White Blood Count 5.9 K/mm3 (4.4-11.0)
[2021-12-09 06:42] LABS: International Normalized Ratio 2.4; Prothrombin Time (Protime)PT. 25.6 SECONDS (11.7-14.9)
[2021-12-09] MEDS: Furosemide 40 MG/4 ML Vial IV (06:51)
[2021-12-09 06:57] LABS: Anion Gap 7 (5-15); BUN 17 mg/dL (7-18); Chloride 109 mmol/L (98-107); Creatinine, Serum 1.13 mg/dL (0.70-1.30); EST Glomerular Filtration Rate 71 mL/min (>60); Est Glom Filt Rate - Afr Amer 86 mL/min (>60); Estimated Creatinine Clearance 74.47 ml/min; Glucose 121 mg/dL (74-106); Magnesium 1.9 mg/dL (1.6-2.6); Phosphorus 3.9 mg/dL (2.5-4.9); Potassium 3.8 mmol/L (3.5-5.1); Sodium Level 142 mmol/L (136-145)
[2021-12-09] MEDS: Albuterol 2.5 MG/3 ML VIAL.NEB. INHALATION (07:05)
[2021-12-09] MEDS: Pantoprazole Sodium 40 MG Tablet PO (07:45)
[2021-12-09] MEDS: amLODIPine 5 MG Tablet PO (07:45)
[2021-12-09] MEDS: Carvedilol 6.25 MG Tablet PO (07:45)
[2021-12-09] MEDS: Spironolactone 25 MG Tablet 12.5 MG PO (07:45)
[2021-12-09] MEDS: Potassium Chloride Oral Tablet 20 MEQ PO (07:46)
--- NOTE | 2021-12-09 07:52 | NURSING ---
Morning meds given early per pt request as he has to leave by 0800 to get to an appointment at 0900 this morning in [place] for radiation
--- NOTE | 2021-12-09 07:57 | DS.PCM_ITS ---
Providers Date of Admission: 12/07/21 Date of Discharge: 12/09/21 Primary Care Physician: Dr. Jose Ramon Turner MD Reason For Visit: ACUTE SYSTOLIC CONGESTIVE HEART FAILURE Diagnosis Discharge Diagnosis (1) Acute exacerbation of CHF (congestive heart failure): Status: Chronic Code(s): I50.9 - Heart failure, unspecified Plan Patient is a 56-year-old gentleman with history of paroxysmal A. fib on systemic anticoagulation with Coumadin history of renal cell carcinoma involving the right kidney with mets who presented with 1 week history of progressive shortness of breath and cough and assessment of acute hypoxic respiratory failure secondary to CHF made admitted to a monitored bed for further management 1. Acute respiratory insufficiency ? Secondary to acute congestive heart failure admitted to a monitored bed with treatment of underlying condition patient placed on supplemental oxygen titrated to keep saturation greater than 90 2. Acute congestive heart failure with reduced ejection fraction ? Patient has been admitted to a monitored bed currently managed with diuretics, strict input and output, fluid restriction and echo ordered for EF assessment ? 2D echo demonstrated EF of 35% with moderate global hypokinesis of the left ventricle. Statin added to patient's therapy on discharge 3. Paroxysmal A. fib with RVR ? Rate controlled patient is on systemic anticoagulation with Coumadin INR was subtherapeutic on admission additional dose of warfarin given. Monitoring with daily INR 4. Right renal cell carcinoma ? With mets to the lung patient is currently on cabozantinib did continue 5. Hypertension - Blood pressure controlled, home medications continued with dose adjustment as needed 6. Dyslipidemia -Patient is on statin therapy, continued at home dose 7. Class II obesity with BMI of 36.7 ? Weight loss advised 8. Tobacco dependence - Counseled on cessation, offered nicotine patch for tobacco cravings 9. DVT prophylaxis ? Patient is on warfarin Medications at Discharge Home Medications albuterol 90 mcg/actuation aerosol inhaler 90 mcg inhalation Q4H PRN PRN breathing 12/07/21 cabozantinib 20 mg tablet 20 mg PO DAILY 12/07/21 carvedilol 6.25 mg tablet 6.25 mg PO BID 12/07/21 cyclobenzaprine 10 mg tablet 10 mg PO TID PRN Spasms 12/07/21 ferrous sulfate 325 mg (65 mg iron) tablet 325 mg PO BID 12/07/21 ondansetron HCl 8 mg tablet 8 mg PO Q8H PRN Nausea 12/07/21 pantoprazole 40 mg tablet,delayed release 40 mg PO DAILY 12/07/21 rosuvastatin 40 mg tablet 40 mg PO DAILY 12/07/21 spironolactone 25 mg tablet 12.5 mg PO DAILY 12/07/21 torsemide 40 mg tablet 40 mg PO DAILY 12/07/21 warfarin 10 mg tablet 7 mg PO DAILY Check with primary doctor 12/07/21 losartan 50 mg tablet 50 mg PO DAILY #60 tabs 12/09/21 Physical Exam Narrative GENERAL: cooperative HEENT: Atraumatic; normocephalic EYES; Anicteric, Normal Conjunctiva NECK; supple, normal thyroid, RESPIRATORY: Diminished to auscultation CARDIOVASCULAR: Regular S1 S2, GI: soft, normoactive bowel sounds, : No Renal angle tenderness; EXTREMITIES: trace edema, no clubbing, MUSCULOSKELETAL: no muscle wasting NEURO: Awake; no lateralizing signs. SKIN: No Rash PSYCH; Flat affect Weight / BMI Weight Weight: 116.12 kg Body Mass Index (BMI) 36.7 ABG / Lab / Microbiology Data Result Diagrams: 12/09/21 06:10 12/09/21 06:10 Laboratory: Laboratory Results - last 24 hr 12/09/21 06:10: WBC 5.9, RBC 5.22, Hgb 16.0, Hct 47.3, MCV 90.6, MCH 30.7, MCHC 33.8, RDW Std Deviation 54.5 H, RDW Coeff of Lizzie 16.5 H, Plt Count 243, MPV 11.1, Immature Gran % (Auto) 0.300, Neut % (Auto) 67.8, Lymph % (Auto) 24.1, [place] % (Auto) 5.8, Eos % (Auto) 1.5, Baso % (Auto) 0.5, Absolute Neuts (auto) 4.0, Absolute Lymphs (auto) 1.42, Nucleated RBC % 0 12/09/21 06:10: PT 25.6 H, INR 2.4 12/09/21 06:10: Sodium 142, Potassium 3.8, Chloride 109 H, Carbon Dioxide 26.0, Anion Gap 7, BUN 17, Creatinine 1.13, Estim Creat Clear Calc 74.47, Est GFR (MDRD) Af Amer 86, Est GFR (MDRD) Non-Af 71, BUN/Creatinine Ratio 15.0, Glucose 121 H, Calcium 9.0, Phosphorus 3.9, Magnesium 1.9 Microbiology: Microbiology 12/07/21 Unknown Nasal Secretion SARS-CoV-2 & FLU Antigen (Rapid) - Final Radiography Diagnostic Testing: Radiology Impression Echocardiogram 12/07/21 17:18 Interpretation Summary Normal LV size. Moderate concentric left ventricular hypertrophy. The estimated ejection fraction is 35 %. There is moderate global hypokinesis of the left ventricle. The left atrium is moderately enlarged. The right atrium is moderately enlarged. Ordering Physician: Mehrdad Villalpando Referring Physician: Bari Turner MD Performed By: Unique Herzog RCS D/C Instructions Discharge Diet: No restrictions Discharge Activity: Return to Normal Activity Call your doctor if you observe: Fever of 101 or Higher, Shortness of breath, Fainting spells and Chest pain Meaningful Use Info Meaningful Use Diagnoses (Choose all that apply): CHF AMI/Post PCI/Angioplasty Documented LVEF (%): 35 CHF NASRIN/ARB ordered at discharge?: Yes Documented LVEF (%): 35 Discharge Plan Admission Admit Date/Time: 12/07/21 16:52 Attending Provider: Mynor Malone Primary Care Provider: Jose Ramon Turner Consulting Providers: Mehrdad Villalpando Discharge Orders/Prescriptions Prescriptions: New losartan 50 mg tablet 50 mg PO DAILY Qty: 60 0RF Continued cyclobenzaprine 10 mg Tablet 10 mg PO TID PRN (Reason: Spasms) carvedilol 6.25 mg tablet 6.25 mg PO BID ondansetron HCl 8 mg Tablet 8 mg PO Q8H PRN (Reason: Nausea) spironolactone 25 mg tablet 12.5 mg PO DAILY pantoprazole 40 mg Tablet,Delayed Release (Dr/Ec) 40 mg PO DAILY ferrous sulfate 325 mg (65 mg iron) Tablet 325 mg PO BID albuterol 90 mcg/actuation Aerosol 90 mcg INHALATION Q4H PRN PRN (Reason: breathing) rosuvastatin 40 mg Tablet 40 mg PO DAILY cabozantinib 20 mg Tablet 20 mg PO DAILY torsemide 40 mg Tablet 40 mg PO DAILY warfarin 10 mg Tablet 7 mg PO DAILY Discontinued amlodipine [Norvasc] 5 MG tablet 5 mg PO DAILY naproxen 500 MG tablet 500 mg PO DAILY PRN PRN (Reason: Pain Or Fever) Referrals / Follow Up: Jose Ramon Turner MD [Primary Care Provider] - In 1 Week Disposition Disposition (needs filled in before D/C Order can be placed): Home, Self Care
== END 2021-12-09 08:13 | disposition home or self-care (01) | DRG 291 ==
LOC: ED 15:39 → PCU 17:14
PROVIDERS: Nurse Practitioner; Admitting Provider Internal Medicine; Emergency Provider Emergency Medicine; PCP Family Medicine; Visit Provider Internal Medicine
DX: I11.0 Hypertensive heart disease with heart failure (principal); I50.23 Acute on chronic systolic (congestive) heart failure; C79.51 Secondary malignant neoplasm of bone; C64.1 Malignant neoplasm of right kidney, except renal pelvis; C78.00 Secondary malignant neoplasm of unspecified lung; I48.20 Chronic atrial fibrillation, unspecified; E78.5 Hyperlipidemia, unspecified; F17.210 Nicotine dependence, cigarettes, uncomplicated; F17.290 Nicotine dependence, other tobacco product, uncomplicated; I34.0 Nonrheumatic mitral (valve) insufficiency; Z79.01 Long term (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 of 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; R09.02 Hypoxemia; R06.89 Other abnormalities of breathing
CPT/HCPCS: 36415; 71046; 71275; 80048; 83735; 83880; 84100; 84484; 85025; 85610; 87428; 93005; 93308; 94640; 99251; 99285; Q9957; Q9967; A4216; G0463; J1940

== ENCOUNTER 2022-01-20 18:42 | Emergency (ER) | payer OTHER, SELFPAY ==
[2022-01-20 18:43] VITALS: BP 122/87; PULSE 98; RESP 15; TEMP 36.5; O2SAT 96; BMI 30.9
--- NOTE | 2022-01-20 19:11 | EKG12_ITS ---
Test Reason : DYSRHYTHMIA Blood Pressure : / mmHG Vent. Rate : 086 BPM Atrial Rate : 202 BPM P-R Int : 000 ms QRS Dur : 104 ms QT Int : 396 ms P-R-T Axes : 000 067 073 degrees QTc Int : 473 ms Atrial fibrillation Nonspecific T wave abnormality Prolonged QT Abnormal ECG Confirmed by RODRICK CLEMENT, OSITO ([id number]), editor city DAYNE ALVARADO ([id number]) on 01/21/2022 2:41:54 PM Referred By: NISHA Confirmed By:OSITO MENSAH MD
--- NOTE | 2022-01-20 19:12 | EX.ED.DYSGE1 ---
HPI History of Present Illness Chief Complaint: Palpitations Detail of Chief Complaint: Shortness of breath Informant: patient Narrative Narrative: History of aPatient presents the emergency department complaint of shortness of breath for about a week. Patient complains of wheezing and some exertional dyspnea. There have been some like he goes in and out of it from time to time. Patient does have history of CHF. Patient also with history of kidney cancer and scheduled to have a surgery to have that removed from the right kidney. Patient does have a cough. He denies fever. He denies recent travel or surgery. Patient has been compliant with his Coumadin. Patient states that when he is gotten this way before he was admitted for breathing treatments. Patient is a smoker. He has not been diagnosed with emphysema or COPD. Prior similar symptoms: Yes PFSH PFSH Medical History Atrial fibrillation Cancer Chest pain Congestive heart failure (CHF) CPAP (continuous positive airway pressure) dependence Hypertension Irregular heart beat Sleep apnea Smoker Home Medications albuterol 90 mcg/actuation aerosol inhaler 90 mcg inhalation Q4H PRN PRN breathing 12/07/21 [History Last Taken Unknown] cabozantinib 20 mg tablet 20 mg PO DAILY 12/07/21 [History Last Taken Unknown] carvedilol 6.25 mg tablet 6.25 mg PO BID 12/07/21 [History Last Taken Unknown] cyclobenzaprine 10 mg tablet 10 mg PO TID PRN Spasms 12/07/21 [History Last Taken Unknown] ferrous sulfate 325 mg (65 mg iron) tablet 325 mg PO BID 12/07/21 [History Last Taken Unknown] ondansetron HCl 8 mg tablet 8 mg PO Q8H PRN Nausea 12/07/21 [History Last Taken Unknown] pantoprazole 40 mg tablet,delayed release 40 mg PO DAILY 12/07/21 [History Last Taken Unknown] rosuvastatin 40 mg tablet 40 mg PO DAILY 12/07/21 [History Last Taken Unknown] spironolactone 25 mg tablet 12.5 mg PO DAILY 12/07/21 [History Last Taken Unknown] torsemide 40 mg tablet 40 mg PO DAILY 12/07/21 [History Last Taken Unknown] warfarin 10 mg tablet 7 mg PO DAILY Check with primary doctor 12/07/21 [History Last Taken Unknown] losartan 50 mg tablet 50 mg PO DAILY #60 tabs 12/09/21 [Rx Last Taken Unknown] prednisone 20 mg tablet 20 mg PO BID #10 tabs 01/20/22 [Rx Last Taken Unknown] Allergy/AdvReac Type Severity Reaction Status Date / Time aspirin [ASA] Allergy Other Verified 01/20/22 18:43 Penicillins Allergy PT UNSURE Verified 01/20/22 18:43 OF REACTION shellfish derived Allergy Hives Verified 01/20/22 18:43 Social History Smoking Status: Current every day smoker tobacco type: cigars ROS ROS ED Review of Systems ROS Unobtainable: other Constitutional Constitutional ED: Reports lethargy; Denies chills, fever(s), sweats or weight loss Eyes Eyes: Denies blurry vision, change in vision or diplopia ENT ENT ED: Denies rhinorrhea or sore throat Cardiovascular Cardiovascular: Reports palpitations; Denies chest pain, orthopnea or racing heartbeat Respiratory/Chest Respiratory/Chest: Reports dyspnea and dyspnea on exertion; Denies cough, orthopnea or sputum Gastrointestinal Gastrointestinal: Denies abdominal pain, diarrhea, nausea or vomiting Genitourinary Genitourinary ED: Denies dysuria, hematuria or urinary frequency Musculoskeletal Musculoskeletal: Denies arthralgias, back pain, myalgias or neck pain Integumentary Denies abscess, Abrasions or rash Neurologic Neurologic: Denies headache(s) or weakness Psychiatric Psychiatric: Denies anxiety, depression or suicidal thoughts Endocrine Endocrinology: Denies polydipsia, polyphagia or polyuria Hematologic/Lymphatic Hematologic/Lymphatic: Denies easy bleeding, easy bruising or lymphadenopathy Allergic/Immunologic Allergic/Immunologic ED: Denies mouth swelling, tongue swelling or urticaria EXAM Physical Exam Const Vital Signs: 01/20/22 18:43 01/20/22 19:21 01/20/22 19:18 Temperature 97.7 F L Temperature Source Temporal Pulse Rate 98 86 Respiratory Rate 15 20 H Respiratory Effort Short of Breath Respiratory Depth Respiratory Pattern Normal Normal Blood Pressure 122/87 H Blood Pressure Mean 98 Pulse Ox 96 Oxygen Delivery Method Room Air 01/20/22 19:18 Temperature Temperature Source Pulse Rate Respiratory Rate 24 H Respiratory Effort Non-Labored Short of Breath Respiratory Depth Shallow Respiratory Pattern Tachypnea Blood Pressure Blood Pressure Mean Pulse Ox 96 Oxygen Delivery Method Room Air Positive well nourished and well developed General Appearance ED: well developed and NAD HEENT Reports TM's clear and moist mucous membranes normocephalic and atraumatic; Negative for trauma or tenderness Tympanic Membrane ED: Yes TM's clear Eyes PERRL and EOMs intact bilaterally General Eye ED: Negative for pale conjunctiva or scleral icterus Neck no lymphadenopathy, supple and no JVD General: Negative for tenderness Chest Wall inspection of chest normal and palpation of chest normal Chest: Negative for tenderness Resp normal respiratory effort Effort and Inspection: Negative for respiratory distress or pain with movement Auscultation: wheezes; Negative for rhonchi or diminished lung sounds Cardio S1 normal heart sound, S2 normal heart sound and no murmurs; Negative for regular rate or regular rhythm Rhythm: abnormal rhythm Peripheral Pulses: pulses 2+ throughout GI normal to inspection, nondistended, normoactive bowel sounds, soft to palpation, non-tender, non-distended and no masses Back/Spine no CVA tenderness and no thoracic nor lumbar tenderness Extremity normal to inspection General Extremety ED: Negative for edema General Extremity: Negative for edema Neuro oriented x3, CN's II-XII intact bilaterally, no sensory deficits noted and gait normal Sensorium / Orientation: awake, alert, oriented to person, oriented to place and oriented to time Motor Exam: strength 5/5 throughout and strength abnormal Psych mental status grossly normal Skin no rashes or lesions noted and no wounds MDM MDM MDM Narrative Medical decision making narrative: IV line established on arrival. Patient was given DuoNeb aerosol followed by albuterol aerosols. Patient was given Solu-Medrol 125 mg IV. Lab work-up was unremarkable. BNP was slightly elevated 272. His INR was subtherapeutic at one-point. 1 view chest x-ray obtained interpreted by myself as a mass to the right chest wall that patient is aware of and is believed to be metastasis from his renal cancer. Patient recently had a biopsy of this mass. After treatment with aerosols he felt markedly improved. At this time he is not hypoxic and otherwise in no respiratory distress and looks well. He is comfortable going home. Patient has albuterol inhalers for home. Patient will be given a prescription for prednisone. He is advised to follow-up with his primary care physician within next 3 to 5 days. Advised to return if increasing shortness of breath or condition should worsen anyway. Lab Data Attestation: I reviewed the patient's lab results. Labs: Laboratory Results - last 24 hr 11/15/22 11/15/22 11/15/22 19:25 19:25 19:25 WBC 4.5 RBC 5.09 Hgb 15.6 Hct 46.4 MCV 91.2 MCH 30.6 MCHC 33.6 RDW Std Deviation 52.1 H RDW Coeff of Lizzie 15.9 H Plt Count 180 MPV 10.2 Immature Gran % (Auto) 0.400 Neut % (Auto) 66.2 Lymph % (Auto) 23.2 [place] % (Auto) 8.5 Eos % (Auto) 1.3 Baso % (Auto) 0.4 Absolute Neuts (auto) 3.0 Absolute Lymphs (auto) 1.04 Nucleated RBC % 0 PT INR Sodium 142 Potassium 3.5 Chloride 104 Carbon Dioxide 30.0 Anion Gap 8 BUN 14 Creatinine 1.10 Estim Creat Clear Calc 75.58 Est GFR (MDRD) Af Amer 88 Est GFR (MDRD) Non-Af 73 BUN/Creatinine Ratio 12.7 Glucose 113 H Calcium 8.8 Troponin I High Sens 58 B-Natriuretic Peptide 272.4 H 01/20/22 19:25 WBC RBC Hgb Hct MCV MCH MCHC RDW Std Deviation RDW Coeff of Lizzie Plt Count MPV Immature Gran % (Auto) Neut % (Auto) Lymph % (Auto) [place] % (Auto) Eos % (Auto) Baso % (Auto) Absolute Neuts (auto) Absolute Lymphs (auto) Nucleated RBC % PT 17.4 H INR 1.5 Sodium Potassium Chloride Carbon Dioxide Anion Gap BUN Creatinine Estim Creat Clear Calc Est GFR (MDRD) Af Amer Est GFR (MDRD) Non-Af BUN/Creatinine Ratio Glucose Calcium Troponin I High Sens B-Natriuretic Peptide Radiography Chest X-Ray - ED: 1 View Diagnostic Testin view chest x-ray obtained interpreted by myself as cardiomegaly with right chest wall mass otherwise at nc appreciate any infiltrate or effusions. Official report from radiology pending. EKG Initial EKG: Attestation: I personally reviewed and interpreted this EKG as follows: Comments: Atrial fibrillation with ventricular rate of [address] changes Discharge Plan Triage Chief Complaint: Palpitations ED Provider: Petra Carvajal Dx/Rx/DC Orders Clinical Impression: COPD with exacerbation Instructions: ED COPD Flare Prescriptions: New prednisone 20 mg tablet 20 mg PO BID Qty: 10 0RF No Action cyclobenzaprine 10 mg Tablet 10 mg PO TID PRN (Reason: Spasms) carvedilol 6.25 mg tablet 6.25 mg PO BID ondansetron HCl 8 mg Tablet 8 mg PO Q8H PRN (Reason: Nausea) spironolactone 25 mg tablet 12.5 mg PO DAILY pantoprazole 40 mg Tablet,Delayed Release (Dr/Ec) 40 mg PO DAILY ferrous sulfate 325 mg (65 mg iron) Tablet 325 mg PO BID albuterol 90 mcg/actuation Aerosol 90 mcg INHALATION Q4H PRN PRN (Reason: breathing) rosuvastatin 40 mg Tablet 40 mg PO DAILY cabozantinib 20 mg Tablet 20 mg PO DAILY torsemide 40 mg Tablet 40 mg PO DAILY warfarin 10 mg Tablet 7 mg PO DAILY losartan 50 mg tablet 50 mg PO DAILY Qty: 60 0RF Primary Care Provider: Jose Ramon Turner Referrals: Jose Ramon Turner MD [Primary Care Provider] - 3-5 Days Disposition Disposition: Home, Self Care
[2022-01-20 19:18] VITALS: PULSE 86; RESP 20; RESP 24; O2SAT 96
[2022-01-20] MEDS: Ipratropium/Albuterol Sulfate 3 ML AMPUL.NEB INHALATION (19:18)
[2022-01-20] MEDS: Albuterol 2.5 MG/3 ML VIAL.NEB. INHALATION ×2 (19:27→19:39)
[2022-01-20] MEDS: MethylPREDNISolone 125 MG/2 ML Vial IV (19:29)
--- NOTE | 2022-01-20 19:32 | RAD_ITS ---
STUDY: X-RAY CHEST REASON FOR EXAM: Male, 57 years old. Atrial fibrillation. Shortness of breath. TECHNIQUE: Single AP portable view of the chest. COMPARISON: December 07, 2021. CTA of the chest, December 07, 2021. FINDINGS: The lungs are well expanded. Again seen is the right anterior chest wall mass present on the previous study. There is no demonstrated pleural abnormality. Normal size heart. Normal mediastinum and tesha. Normal visualized pulmonary arteries. Normal visualized aortic arch and descending thoracic aorta. Normal visualized thoracic spine. Normal visualized ribs, clavicles, and shoulders. There is no demonstrated abnormality of the visualized soft tissue structures of the upper abdomen. RAD/Chest 1 View (Portable) IMPRESSION: Persistent right chest wall mass without acute cardiopulmonary disease. Electronically Signed: Juarez Jasso DO at 21:17 EST ,
[2022-01-20 19:37] LABS: Absolute Lymphocyte Count 1.04 X10^3/uL (0.83-4.51); Basophil# 0.02 X10^3/uL; Basophil% 0.4 % (0-1); Eosinophil# 0.06 X10^3/uL; Eosinophils% 1.3 % (0-5); Hematocrit 46.4 % (40-54); Hemoglobin 15.6 g/dL (13.0-16.5); Lymphocyte # 1.04 X10^3/ul (0.83-4.51); Lymphocyte % 23.2 % (19-41); Mean Corp Hgb Conc 33.6 g/dL (32-36); Mean Corpuscular Hgb 30.6 pg (27.0-32.0); Mean Corpuscular Volume 91.2 fL (80-94); Mean Platelet Vol. 10.2 fl (6.2-12.0); Monocyte# 0.38 X10^3/uL; Monocyte% 8.5 % (0-10); NRBC Flagged by Analyzer 0 % (0-5); Neutrophil # 2.96 X10^3/uL (2.7-7.7); Neutrophil % 66.2 % (47-70); Platelet Count 180 K/mm3 (150-450); RBC Distribution Width CV 15.9 % (11.6-14.6); RBC Distribution Width SD 52.1 fl (35.1-43.9); Red Blood Count 5.09 M/mm3 (4.6-6.2); White Blood Count 4.5 K/mm3 (4.4-11.0)
[2022-01-20 19:49] LABS: International Normalized Ratio 1.5; Prothrombin Time (Protime)PT. 17.4 SECONDS (11.7-14.9)
[2022-01-20 19:52] LABS: BNP,B-Type NATRIURETIC PEPTIDE 272.4 pg/mL (0-100)
[2022-01-20 19:56] LABS: Anion Gap 8 (5-15); BUN 14 mg/dL (7-18); BUN/Creat Ratio 12.7 RATIO (10-20); Calcium,Total 8.8 mg/dL (8.5-10.1); Chloride 104 mmol/L (98-107); EST Glomerular Filtration Rate 73 mL/min (>60); Est Glom Filt Rate - Afr Amer 88 mL/min (>60); Estimated Creatinine Clearance 75.58 ml/min; Glucose 113 mg/dL (74-106); Potassium 3.5 mmol/L (3.5-5.1); Sodium Level 142 mmol/L (136-145); Troponin-I HS 58 pg/mL (3.0-78.0)
--- NOTE | 2022-01-20 19:59 | CPS ---
x2 Albuterol given to pt. in ER as well. Pt. politely refused the third Albuterol ordered for him. Respiratory status has improved.
[2022-01-20 20:23] VITALS: BP 136/103; PULSE 82; RESP 34; O2SAT 98
[2022-01-20 20:25] VITALS: BP 136/103; PULSE 88; RESP 31; O2SAT 97
== END 2022-01-20 20:27 | disposition home or self-care (01) ==
PROVIDERS: Emergency Provider Emergency Medicine; PCP Family Medicine; Visit Provider Emergency Medicine
DX: J44.1 Chronic obstructive pulmonary disease with (acute) exacerbation (principal); I11.0 Hypertensive heart disease with heart failure; I50.9 Heart failure, unspecified; C64.9 Malignant neoplasm of unspecified kidney, except renal pelvis; I48.91 Unspecified atrial fibrillation; R00.2 Palpitations; R06.02 Shortness of breath; Z79.01 Long term (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 of 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; G47.30 Sleep apnea, unspecified; F17.210 Nicotine dependence, cigarettes, uncomplicated
CPT/HCPCS: 71045; 80048; 83880; 84484; 85025; 85610; 87428; 93005; 94640; 96374; 99251; 99283; A4216; G0463

== ENCOUNTER 2022-01-29 11:53 | Emergency (ER) | payer OTHER, SELFPAY ==
[2022-01-29] VITALS (10 sets, daily range): BP systolic 127–170; BP diastolic 73–132; PULSE 90–103; RESP 17–24; TEMP 36.4; O2SAT 92–98; BMI 40.1
--- NOTE | 2022-01-29 12:04 | EKG12_ITS ---
Test Reason : AFIB Blood Pressure : / mmHG Vent. Rate : 097 BPM Atrial Rate : 000 BPM P-R Int : 000 ms QRS Dur : 098 ms QT Int : 368 ms P-R-T Axes : 000 079 021 degrees QTc Int : 467 ms Atrial fibrillation Abnormal ECG Confirmed by OSITO MENSAH MD ([id number]), magazine editor LISA ADAM ([id number]) on 02/02/2022 11:52:03 AM Referred By: CALISTA Confirmed By:OSITO MENSAH MD
--- NOTE | 2022-01-29 12:05 | EDS_ITS ---
HPI History of Present Illness Chief Complaint: Chest Pain Detail of Chief Complaint: cp/sob/cough Informant: patient Onset/Context/Timing Onset: Days (3) Context: gradual and onset Timing: Continuous Quality: Positive for - (tightness) Current Severity: Severe Maximum Severity: Severe Worsened by: Exertion, Lying flat and Coughing Relieved by: Nothing; Not Relieved By Albuterol Associated Symptoms cough Chest Pain: Positive for Tightness Narrative Narrative: 3 days progressively worsening cough, chest tightness, dyspnea. Worse to exert himself, cough, and lie down. Cough is dry nonproductive. No known fevers or chills. No known sick contacts. Takes an oral chemotherapy agent for kidney cancer. Is on warfarin because of A. fib but has been off of it this week because he is scheduled in 5 days to have kidney surgery due to the cancer. States he has an albuterol MDI to use for breathing, it has not been helping any of this in the past 3 days at all. He states he does not know if he has a history of asthma or COPD, just that he has been given an inhaler in the past. He denies any leg swelling. No GI symptoms. PFSH PFSH Medical History Atrial fibrillation Cancer Chest pain Congestive heart failure (CHF) CPAP (continuous positive airway pressure) dependence Hypertension Irregular heart beat Sleep apnea Smoker Home Medications albuterol 90 mcg/actuation aerosol inhaler 90 mcg inhalation Q4H PRN PRN breathing 12/07/21 [History Last Taken Unknown] cabozantinib 20 mg tablet 20 mg PO DAILY 12/07/21 [History Last Taken Unknown] carvedilol 6.25 mg tablet See Rx Instructions .Route .COMPLEX 12/07/21 [History Last Taken Unknown] cyclobenzaprine 10 mg tablet 10 mg PO TID PRN Spasms 12/07/21 [History Last Taken Unknown] ferrous sulfate 325 mg (65 mg iron) tablet 325 mg PO BID 12/07/21 [History Last Taken Unknown] ondansetron HCl 8 mg tablet 8 mg PO Q8H PRN Nausea 12/07/21 [History Last Taken Unknown] pantoprazole 40 mg tablet,delayed release 40 mg PO DAILY 12/07/21 [History Last Taken Unknown] rosuvastatin 40 mg tablet 40 mg PO DAILY 12/07/21 [History Last Taken Unknown] spironolactone 25 mg tablet 12.5 mg PO DAILY 12/07/21 [History Last Taken Unknown] torsemide 40 mg tablet 40 mg PO DAILY 12/07/21 [History Last Taken Unknown] warfarin 10 mg tablet 7 mg PO DAILY Check with primary doctor 12/07/21 [History Last Taken Unknown] losartan 50 mg tablet 50 mg PO DAILY #60 tabs 12/09/21 [Rx Last Taken Unknown] prednisone 20 mg tablet 20 mg PO BID #10 tabs 01/20/22 [Rx Last Taken Unknown] cefdinir 300 mg capsule 300 mg PO BID #14 caps 01/29/22 [Rx Last Taken Unknown] furosemide 40 mg tablet (Lasix) 40 mg PO DAILY #14 tabs 01/29/22 [Rx Last Taken Unknown] Allergy/AdvReac Type Severity Reaction Status Date / Time aspirin [ASA] Allergy Other Verified 01/29/22 11:58 Penicillins Allergy PT UNSURE Verified 01/29/22 11:58 OF REACTION shellfish derived Allergy Hives Verified 01/29/22 11:58 Social History Smoking Status: Current every day smoker tobacco type: cigars ROS ROS ED Constitutional Constitutional ED: Denies chills or fever(s) Eyes Eyes: Denies change in vision or diplopia ENT ENT ED: Denies rhinorrhea or sore throat Cardiovascular Cardiovascular: Reports chest pain and orthopnea; Denies palpitations or racing heartbeat Respiratory/Chest Respiratory/Chest: Reports chest tightness, cough, dry cough, dyspnea and orthopnea Gastrointestinal Gastrointestinal: Denies abdominal pain, diarrhea, nausea or vomiting Genitourinary Genitourinary ED: Denies dysuria or hematuria Musculoskeletal Musculoskeletal: Denies back pain or neck pain Integumentary Denies abscess or rash Neurologic Neurologic: Denies headache(s), paresthesias or weakness Psychiatric Psychiatric: Denies anxiety or suicidal thoughts EXAM Physical Exam Const Vital Signs: 01/29/22 11:54 01/29/22 11:58 01/29/22 12:16 Temperature 97.6 F L Temperature Source Temporal Pulse Rate 103 H 90 Respiratory Rate 23 H 24 H Respiratory Effort Short of Breath Labored Respiratory Pattern Tachypnea Blood Pressure 127/73 H Blood Pressure Mean 91 Pulse Ox 94 Oxygen Delivery Method Room Air Nasal Cannula Oxygen Flow Rate (L/min) 2 01/29/22 12:36 01/29/22 13:22 01/29/22 13:24 Temperature Temperature Source Pulse Rate 99 96 97 Respiratory Rate 19 H 23 H Respiratory Effort Respiratory Pattern Blood Pressure 143/103 H 170/132 H 170/132 H Blood Pressure Mean 116 144 Pulse Ox 94 92 Oxygen Delivery Method Nasal Cannula Nasal Cannula Oxygen Flow Rate (L/min) 2 2 01/29/22 14:00 01/29/22 14:21 Temperature Temperature Source Pulse Rate 91 Respiratory Rate 22 H Respiratory Effort Respiratory Pattern Blood Pressure 152/122 H 154/120 H Blood Pressure Mean 132 131 Pulse Ox 94 Oxygen Delivery Method Nasal Cannula Oxygen Flow Rate (L/min) 2 Positive well nourished and well developed General Appearance ED: well developed and NAD HEENT Reports moist mucous membranes normocephalic and atraumatic Eyes PERRL and EOMs intact bilaterally Neck full ROM, supple and no JVD Resp Resp Narrative: Tachypneic. Mild diffuse expiratory wheezing, but no other abnormal breath sounds. Symmetric bilaterally. Trachea midline. Cardio no murmurs Rate: Negative for tachycardic Rhythm: abnormal rhythm irregularly irregular GI non-tender and non-distended Auscultation: normoactive bowel sounds Palpation: soft Back/Spine no CVA tenderness General Back: other FROM Extremity normal to inspection General Extremety ED: Negative for edema, pulses abnormal or tenderness General Extremity: Negative for edema or pulses abnormal Neuro oriented x3, CN's II-XII intact bilaterally and no sensory deficits noted Sensorium / Orientation: awake and alert Motor Exam: strength 5/5 throughout Psych mental status grossly normal Skin no rashes or lesions noted and no wounds MDM MDM MDM Narrative Medical decision making narrative: While obtaining testing, patient was given a duo nebulizer treatment, he said this did nothing for his dyspnea and chest tightness. His EKG shows rate controlled atrial fibrillation with no acute injury pattern or change compared with his prior. His BNP is elevated but he has been higher than this in the past, his troponin is 69 which is within normal limits, he has had constant chest tightness for 3 days and at this time there is no evidence of acute coronary syndrome/injury. White blood count is at the high end of normal with a slight trend toward left shift. 2 view chest x-ray on my interpretation appears to show central congestion/CHF. In reviewing his last echocardiogram which was in December last month, it appears he has an ejection fraction of 35%. He showed me his medications on his phone, he is not familiar with them without referencing photographs of the bottles. He does not have a picture of torsemide which appears on his list in the EMR because he states it was recently discontinued for a couple of weeks. Given all of this I treated him subsequently with Lasix 40 mg and a nitroglycerin. Radiology commented that it looks more like a right basilar pneumonia, in addition to right chest wall mass which was previously imaged on CT last month, presumingly metastatic from his renal cell carcinoma. I discussed that with him and he states that he already had radiation treatment for that. On reevaluation after the Lasix and nitroglycerin, he states he is breathing better although he looks dyspneic. I o ffered admission but he declines and prefers to go home and I am okay with that since he is not hypoxic. He states he has pressure he has the torsemide at home to take, but is requesting a prescription for Lasix just in case, he understands that he is not to take both so I gave him a prescription on paper in case he has the torsemide at home which she should preferentially take since he was previously on it. He is also already on spironolactone. Since he has been coughing quite a bit, and the radiologist thinks this may be a right basilar infiltrate, I am also prescribing him an antibiotic just in case, but my suspicion is that this is mostly congestive heart failure due to discontinuing his diuretic recently. He is in agreement. Of note although his INR is subtherapeutic due to discontinuing his warfarin preoperatively, I do not think his symptoms/presentation are consistent with pulmonary embolus. Lab Data Attestation: I reviewed the patient's lab results. Labs: Laboratory Results - last 24 hr 01/29/22 01/29/22 01/29/22 11:55 11:55 11:55 WBC 10.0 RBC 4.81 Hgb 15.0 Hct 45.3 MCV 94.2 H MCH 31.2 MCHC 33.1 RDW Std Deviation 55.1 H RDW Coeff of Lizzie 16.4 H Plt Count 166 MPV 10.9 Immature Gran % (Auto) 1.700 H Neut % (Auto) 85.8 H Lymph % (Auto) 7.8 L Bennett % (Auto) 4.3 Eos % (Auto) 0.1 Baso % (Auto) 0.3 Absolute Neuts (auto) 8.6 H Absolute Lymphs (auto) 0.78 L Nucleated RBC % 1.2 PT INR Sodium 142 Potassium 3.5 Chloride 102 Carbon Dioxide 36.0 H Anion Gap 4 L BUN 19 H Creatinine 1.09 Estim Creat Clear Calc 76.27 Est GFR (MDRD) Af Amer 89 Est GFR (MDRD) Non-Af 74 BUN/Creatinine Ratio 17.4 Glucose 148 H Calcium 9.0 Troponin I High Sens 69 B-Natriuretic Peptide 378.8 H 01/29/22 11:55 WBC RBC Hgb Hct MCV MCH MCHC RDW Std Deviation RDW Coeff of Lizzie Plt Count MPV Immature Gran % (Auto) Neut % (Auto) Lymph % (Auto) Bennett % (Auto) Eos % (Auto) Baso % (Auto) Absolute Neuts (auto) Absolute Lymphs (auto) Nucleated RBC % PT 15.3 H INR 1.2 Sodium Potassium Chloride Carbon Dioxide Anion Gap BUN Creatinine Estim Creat Clear Calc Est GFR (MDRD) Af Amer Est GFR (MDRD) Non-Af BUN/Creatinine Ratio Glucose Calcium Troponin I High Sens B-Natriuretic Peptide Radiography Diagnostic Testing: Clinical Impression(s) from Imaging Studies Chest X-Ray 01/29/22 12:45 IMPRESSION: Increased opacity in the right lung base adjacent to the chest wall mass, which may represent atelectasis or pneumonia. Electronically Signed: Ivette Jim MD at 13:26 EST Reading Location ID and State: [facility] / [place] Tel , Service support , Rhythm Strip Rhythm Strip: A-fib Rate: 100 Ectopy: None EKG Initial EKG: Attestation: I personally reviewed and interpreted this EKG as follows: Interpretation: No Acute Injury Pattern and Atrial Fibrillation Prior EKG tracings: available for review Prior: Unchanged Discharge Plan Triage Chief Complaint: Chest Pain Other Complaint: Shortness of Breath ED Provider: Speedy Bass Dx/Rx/DC Orders Clinical Impression: Acute exacerbation of CHF (congestive heart failure), Pneumonia, Chest tightness, Atrial fibrillation, chronic Instructions: ED Heart Failure, Congestive (CHF), ED Pneumonia (Adult) Prescriptions: New cefdinir 300 mg capsule 300 mg PO BID Qty: 14 0RF furosemide [Lasix] 40 mg tablet 40 mg PO DAILY Qty: 14 0RF No Action cyclobenzaprine 10 mg Tablet 10 mg PO TID PRN (Reason: Spasms) carvedilol 6.25 mg tablet See Rx Instructions .ROUTE .COMPLEX Rx Instructions: 3 TAB, TWICE DAILY ondansetron HCl 8 mg Tablet 8 mg PO Q8H PRN (Reason: Nausea) spironolactone 25 mg tablet 12.5 mg PO DAILY pantoprazole 40 mg Tablet,Delayed Release (Dr/Ec) 40 mg PO DAILY ferrous sulfate 325 mg (65 mg iron) Tablet 325 mg PO BID albuterol 90 mcg/actuation Aerosol 90 mcg INHALATION Q4H PRN PRN (Reason: breathing) rosuvastatin 40 mg Tablet 40 mg PO DAILY cabozantinib 20 mg Tablet 20 mg PO DAILY torsemide 40 mg Tablet 40 mg PO DAILY warfarin 10 mg Tablet 7 mg PO DAILY losartan 50 mg tablet 50 mg PO DAILY Qty: 60 0RF prednisone 20 mg tablet 20 mg PO BID Qty: 10 0RF Primary Care Provider: Jose Ramon Turner Referrals: Jose Ramon Turner MD [Primary Care Provider] - 3-5 Days Activity Restrictions/Additional Instructions: Take the antibiotic as prescribed until completely gone, and also your torsemide, but take 1 tablet 40 mg twice daily for the next 3 days to help get fluid off, then go back to your usually prescribed 1 tablet 40 mg once daily. Do what ever your doctors have recommended regarding your other medications such as warfarin, and make sure you contact your surgeon regarding these acute issues prior to your scheduled surgery. Only fill and take the Lasix as a replacement for torsemide if you do not already have it. Disposition Disposition: Home, Self Care
[2022-01-29] MEDS: Ipratropium/Albuterol Sulfate 3 ML AMPUL.NEB INHALATION (12:15)
[2022-01-29 12:16] LABS: Absolute Lymphocyte Count 0.78 X10^3/uL (0.83-4.51); Absolute Neutrophil Count 8.6 X10^3/uL (2.0-7.7); Basophil# 0.03 X10^3/uL; Basophil% 0.3 % (0-1); Eosinophil# 0.01 X10^3/uL; Eosinophils% 0.1 % (0-5); Hematocrit 45.3 % (40-54); Lymphocyte # 0.78 X10^3/ul (0.83-4.51); Lymphocyte % 7.8 % (19-41); Mean Corp Hgb Conc 33.1 g/dL (32-36); Mean Corpuscular Hgb 31.2 pg (27.0-32.0); Mean Corpuscular Volume 94.2 fL (80-94); Mean Platelet Vol. 10.9 fl (6.2-12.0); Monocyte# 0.43 X10^3/uL; Monocyte% 4.3 % (0-10); NRBC Flagged by Analyzer 1.2 % (0-5); Neutrophil # 8.62 X10^3/uL (2.7-7.7); Neutrophil % 85.8 % (47-70); Platelet Count 166 K/mm3 (150-450); RBC Distribution Width CV 16.4 % (11.6-14.6); RBC Distribution Width SD 55.1 fl (35.1-43.9); Red Blood Count 4.81 M/mm3 (4.6-6.2)
[2022-01-29 12:25] LABS: International Normalized Ratio 1.2; Prothrombin Time (Protime)PT. 15.3 SECONDS (11.7-14.9)
[2022-01-29 12:34] LABS: Anion Gap 4 (5-15); BNP,B-Type NATRIURETIC PEPTIDE 378.8 pg/mL (0-100); BUN 19 mg/dL (7-18); BUN/Creat Ratio 17.4 RATIO (10-20); Chloride 102 mmol/L (98-107); Creatinine, Serum 1.09 mg/dL (0.70-1.30); EST Glomerular Filtration Rate 74 mL/min (>60); Est Glom Filt Rate - Afr Amer 89 mL/min (>60); Estimated Creatinine Clearance 76.27 ml/min; Glucose 148 mg/dL (74-106); Potassium 3.5 mmol/L (3.5-5.1); Sodium Level 142 mmol/L (136-145); Troponin-I HS 69 pg/mL (3.0-78.0)
--- NOTE | 2022-01-29 12:45 | RAD_ITS ---
HISTORY: sob, chest tightness. TECHNIQUE: XR Chest 2 Views. COMPARISON: 01/20/2022. FINDINGS: CARDIOMEDIASTINAL BORDERS: Cardiac silhouette is stably enlarged. Mediastinal contour unremarkable. LUNGS: Increased opacity in the right lung base adjacent to the chest wall mass. PLEURA: No pleural effusion or pneumothorax seen. OSSEOUS STRUCTURES: Unremarkable. RAD/Chest PA and Lateral IMPRESSION: Increased opacity in the right lung base adjacent to the chest wall mass, which may represent atelectasis or pneumonia. Electronically Signed: Ivette Jim MD at 13:26 EST ,
[2022-01-29] MEDS: Nitroglycerin SL (ED/IMG/CATH) 0.4 MG TABLET SL (13:22)
[2022-01-29] MEDS: Furosemide 40 MG/4 ML Vial IV (13:23)
[2022-01-29] MEDS: Cefdinir 300 MG Capsule PO (15:18)
== END 2022-01-29 15:20 | disposition home or self-care (01) ==
PROVIDERS: Emergency Provider Emergency Medicine; PCP Family Medicine; Visit Provider Emergency Medicine
DX: I50.9 Heart failure, unspecified (principal); I11.0 Hypertensive heart disease with heart failure; I48.20 Chronic atrial fibrillation, unspecified; J18.9 Pneumonia, unspecified organism; R07.89 Other chest pain; G47.30 Sleep apnea, unspecified; Z79.899 Other long term (current) drug therapy
CPT/HCPCS: 71046; 80048; 83880; 84484; 85025; 85610; 87428; 93005; 94640; 96374; 99285; A4216; J1940

== ENCOUNTER 2022-04-13 21:16 | Inpatient (IN) | payer OTHER, SELFPAY ==
[2022-04-13 21:17] VITALS: BP 145/105; PULSE 112; RESP 18; TEMP 35.6; O2SAT 98; BMI 35.8
--- NOTE | 2022-04-13 21:38 | EKG12_ITS ---
Test Reason : stress test Blood Pressure : / mmHG Vent. Rate : 096 BPM Atrial Rate : 000 BPM P-R Int : 000 ms QRS Dur : 088 ms QT Int : 356 ms P-R-T Axes : 000 098 -01 degrees QTc Int : 449 ms Atrial fibrillation Rightward axis Abnormal QRS-T angle, consider primary T wave abnormality Abnormal ECG When compared with ECG of 13-APR-2022 21:24, No significant change was found Confirmed by RODRICK CLEMENT, OSITO ([id number]), editor department LISA ADAM ([id number]) on 04/16/2022 12:37:03 PM Referred By: Confirmed By:OSITO MENSAH MD
--- NOTE | 2022-04-13 21:38 | EKG12_ITS ---
Test Reason : SOB Blood Pressure : / mmHG Vent. Rate : 100 BPM Atrial Rate : 000 BPM P-R Int : 000 ms QRS Dur : 088 ms QT Int : 358 ms P-R-T Axes : 000 072 061 degrees QTc Int : 461 ms Atrial fibrillation Nonspecific T wave abnormality Prolonged QT Abnormal ECG Confirmed by RODRICK CLEMENT, OSITO ([id number]), news editor LISA ADAM ([id number]) on 04/14/2022 8:44:39 AM Referred By: NUBIA Confirmed By:OSITO MENSAH MD
--- NOTE | 2022-04-13 21:40 | RAD_ITS ---
INDICATION: chest pain EXAMINATION/TECHNIQUE: X-RAY - XR Chest 1 View COMPARISON: 9 hours earlier RAD/Chest 1 View (Portable) IMPRESSION: Right sixth rib based mass redemonstrated. Similar bilateral lower lung infiltrates. Electronically Signed: David Moreno MD at 21:56 EST ,
[2022-04-13 21:54] LABS: Absolute Lymphocyte Count 0.72 X10^3/uL (0.83-4.51); Absolute Neutrophil Count 4.5 X10^3/uL (2.0-7.7); Basophil# 0.02 X10^3/uL; Basophil% 0.4 % (0-1); Hematocrit 38.2 % (40-54); Hemoglobin 12.8 g/dL (13.0-16.5); Lymphocyte # 0.72 X10^3/ul (0.83-4.51); Lymphocyte % 12.7 % (19-41); Mean Corp Hgb Conc 33.5 g/dL (32-36); Mean Corpuscular Hgb 31.8 pg (27.0-32.0); Mean Corpuscular Volume 94.8 fL (80-94); Mean Platelet Vol. 10.8 fl (6.2-12.0); Monocyte% 7.1 % (0-10); NRBC Flagged by Analyzer 1.8 % (0-5); Neutrophil # 4.51 X10^3/uL (2.7-7.7); Neutrophil % 79.4 % (47-70); POSITIVE MORPHOLOGY YES; Platelet Count 197 K/mm3 (150-450); RBC Distribution Width CV 20.2 % (11.6-14.6); RBC Distribution Width SD 69.1 fl (35.1-43.9); Red Blood Count 4.03 M/mm3 (4.6-6.2); White Blood Count 5.7 K/mm3 (4.4-11.0)
[2022-04-13 21:56] LABS: Differential Indicated SCAN CRITERIA MET
[2022-04-13 22:20] VITALS: BP 119/80; PULSE 112; RESP 40; O2SAT 96; O2SAT 99
[2022-04-13 22:22] VITALS: O2SAT 96
[2022-04-13 22:26] LABS: Anion Gap 7 (5-15); BUN 15 mg/dL (7-18); BUN/Creat Ratio 7.7 RATIO (10-20); Chloride 111 mmol/L (98-107); Creatinine, Serum 1.94 mg/dL (0.70-1.30); Differential Comment SCANNED; EST Glomerular Filtration Rate 38 mL/min (>60); Est Glom Filt Rate - Afr Amer 46 mL/min (>60); Estimated Creatinine Clearance 44.21 ml/min; Glucose 125 mg/dL (74-106); Potassium 3.7 mmol/L (3.5-5.1); Sodium Level 143 mmol/L (136-145)
--- NOTE | 2022-04-13 22:28 | EDS_ITS ---
HPI History of Present Illness Chief Complaint: Shortness of Breath Narrative Narrative: 57-year-old male with history of CHF, COPD, A-fib presenting with shortness of breath. Patient states has been this way for about 2 weeks with worsening over the last couple of days. Patient is status post nephrectomy on February [address] Brandon Lopez at [facility]. Patient reported that he is on a daily chemotherapy agent. He also has had 1 radiation to the right kidney. 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 Patient does not report a fever, chills. He does report a cough. This is a chronic cough. Patient also reports that he has chest tightness when he coughs. He describes orthopnea which is not new as well. Dyspnea on exertion. Patient was seen by his primary care physician today. He did outpatient blood work and he was told that his troponin was elevated today. PFSH PFSH Medical History Atrial fibrillation Cancer Chest pain Congestive heart failure (CHF) CPAP (continuous positive airway pressure) dependence Hypertension Irregular heart beat Sleep apnea Smoker Home Medications albuterol 90 mcg/actuation aerosol inhaler 90 mcg inhalation Q4H PRN PRN breathing 12/07/21 [History Last Taken Unknown] cabozantinib 20 mg tablet 20 mg PO DAILY 12/07/21 [History Last Taken Unknown] carvedilol 6.25 mg tablet See Rx Instructions .Route .COMPLEX 12/07/21 [History Last Taken Unknown] cyclobenzaprine 10 mg tablet 10 mg PO TID PRN Spasms 12/07/21 [History Last Taken Unknown] ferrous sulfate 325 mg (65 mg iron) tablet 325 mg PO BID 12/07/21 [History Last Taken Unknown] ondansetron HCl 8 mg tablet 8 mg PO Q8H PRN Nausea 12/07/21 [History Last Taken Unknown] pantoprazole 40 mg tablet,delayed release 40 mg PO DAILY 12/07/21 [History Last Taken Unknown] rosuvastatin 40 mg tablet 40 mg PO DAILY 12/07/21 [History Last Taken Unknown] spironolactone 25 mg tablet 12.5 mg PO DAILY 12/07/21 [History Last Taken Unknown] torsemide 40 mg tablet 40 mg PO DAILY 12/07/21 [History Last Taken Unknown] warfarin 10 mg tablet 7 mg PO DAILY Check with primary doctor 12/07/21 [History Last Taken Unknown] losartan 50 mg tablet 50 mg PO DAILY #60 tabs 12/09/21 [Rx Last Taken Unknown] prednisone 20 mg tablet 20 mg PO BID #10 tabs 01/20/22 [Rx Last Taken Unknown] cefdinir 300 mg capsule 300 mg PO BID #14 caps 01/29/22 [Rx Last Taken Unknown] furosemide 40 mg tablet (Lasix) 40 mg PO DAILY #14 tabs 01/29/22 [Rx Last Taken Unknown] Allergy/AdvReac Type Severity Reaction Status Date / Time aspirin [ASA] Allergy Other Verified 04/13/22 22:21 Penicillins Allergy PT UNSURE Verified 04/13/22 22:21 OF REACTION shellfish derived Allergy Hives Verified 04/13/22 22:21 Social History Smoking Status: Current every day smoker tobacco type: cigars ROS ROS ED Constitutional Constitutional ED: Denies chills or fever(s) Eyes Eyes: Denies change in vision or diplopia ENT ENT ED: Denies rhinorrhea or sore throat Cardiovascular Cardiovascular: Reports chest pain, orthopnea and palpitations Respiratory/Chest Respiratory/Chest: Reports cough, dyspnea, dyspnea on exertion and orthopnea Gastrointestinal Gastrointestinal: Denies abdominal pain, nausea or vomiting Genitourinary Genitourinary ED: Denies dysuria or hematuria Musculoskeletal Musculoskeletal: Denies myalgias or neck pain Integumentary Denies abscess Neurologic Neurologic: Denies headache(s) or paresthesias Psychiatric Psychiatric: Denies anxiety or depression EXAM Physical Exam Const Vital Signs: 04/13/22 21:17 04/13/22 21:17 04/13/22 22:20 Temperature 96.0 F L 96.0 F L Temperature Source Temporal Temporal Pulse Rate 112 H 112 H Respiratory Rate 18 18 Respiratory Effort Respiratory Depth Respiratory Pattern Blood Pressure 145/105 H 145/105 H Blood Pressure Mean 118 118 Pulse Ox 98 98 96 Oxygen Delivery Method Room Air Room Air Room Air Oxygen Flow Rate (L/min) 04/13/22 22:20 04/13/22 22:22 04/13/22 22:42 Temperature Temperature Source Pulse Rate 112 H 76 Respiratory Rate 40 H Respiratory Effort Short of Breath Labored Accessory Muscle Use Respiratory Depth Shallow Respiratory Pattern Tachypnea Blood Pressure 119/80 Blood Pressure Mean 93 Pulse Ox 99 Oxygen Delivery Method Room Air Room Air Room Air Oxygen Flow Rate (L/min) 04/13/22 22:42 04/13/22 22:42 Temperature Temperature Source Pulse Rate 99 Respiratory Rate 35 H Respiratory Effort Respiratory Depth Respiratory Pattern Blood Pressure 109/82 H Blood Pressure Mean 91 Pulse Ox 94 98 Oxygen Delivery Method Nasal Cannula Nasal Cannula Oxygen Flow Rate (L/min) 2 2 Positive well nourished and obese Constitutional Narrative: Dyspneic. She speaking in short sentences. General Appearance ED: Negative for pallor Nutritional Appearance: obese HEENT Reports moist mucous membranes Eyes PERRL and EOMs intact bilaterally Neck no lymphadenopathy Resp Resp Narrative: Tachypneic, speaking in short sentences, Cardio regular rhythm Rate: tachycardic GI non-tender Neuro oriented x3 and CN's II-XII intact bilaterally Sensorium / Orientation: alert Motor Exam: strength 5/5 throughout Psych mental status grossly normal Skin no wounds General Skin Exam: Negative for pallor MDM MDM MDM Narrative Medical decision making narrative: Patient presenting with dyspnea. Differential includes but is not limited to COPD, CHF, NSTEMI as he had an elevated troponin, acute kidney disease, viral illness. Patient does look dyspneic but he is maintaining his airway. He speaking in short sentences. His lungs are clear and is not wheezing. EKG was obtained to assess for dysrhythmia and ischemia. On my interpretation this shows a sinus tachycardia with a ventricular rate of 113/min. Parable 160 ms, QRS duration 82 ms, QTc 474 ms. BNP today was 600. This is high for the patient. High-sensitivity troponin today on outpatient basis was 118. Tonight it is 126. I suspect clinically patient on the patient's exam that he is in CHF. And this is probably heart strain from that he has a known history of CHF and his most recent EF was 35%. Patient is status post nephrectomy as well and has increase in his creatinine and decreased GFR. I did look in clinic think. His creatinine on 04/09/2022 was 1.57 with a GFR of was 51. It was noted that the patient's O2 sat dropped into the 70s. He was on 2 L nasal cannula and is appears stable. This point I think he needs to be admitted for CHF exacerbation. Discussed with hospitalist for admission. Impression: 1. CHF exacerbation 2. Dyspnea 3. Elevated troponin 4. Hypoxia Lab Data Attestation: I reviewed the patient's lab results. Labs: Laboratory Results - last 24 hr 04/13/22 04/13/22 04/13/22 21:40 21:40 22:29 WBC 5.7 RBC 4.03 L Hgb 12.8 L Hct 38.2 L MCV 94.8 H MCH 31.8 MCHC 33.5 RDW Std Deviation 69.1 H RDW Coeff of Lizzie 20.2 H Plt Count 197 MPV 10.8 Immature Gran % (Auto) 0.400 Neut % (Auto) 79.4 H Lymph % (Auto) 12.7 L [place] % (Auto) 7.1 Eos % (Auto) 0.0 Baso % (Auto) 0.4 Absolute Neuts (auto) 4.5 Absolute Lymphs (auto) 0.72 L Nucleated RBC % 1.8 Differential Comment SCANNED PT 21.7 H INR 1.9 Sodium 143 Potassium 3.7 Chloride 111 H Carbon Dioxide 25.0 Anion Gap 7 BUN 15 Creatinine 1.94 H Estim Creat Clear Calc 44.21 Est GFR (MDRD) Af Amer 46 L Est GFR (MDRD) Non-Af 38 L BUN/Creatinine Ratio 7.7 L Glucose 125 H Calcium 9.0 Troponin I High Sens 126 H* Radiography Diagnostic Testing: Clinical Impression(s) from Imaging Studies Chest X-Ray 04/13/22 21:40 IMPRESSION: Right sixth rib based mass redemonstrated. Similar bilateral lower lung infiltrates. Electronically Signed: David Moreno MD at 21:56 EST Reading Location ID and State: [facility] / [place] Tel , Service support , Discharge Plan Triage Chief Complaint: Shortness of Breath ED Provider: Kei Dunn Dx/Rx/DC Orders Prescriptions: No Action cyclobenzaprine 10 mg Tablet 10 mg PO TID PRN (Reason: Spasms) carvedilol 6.25 mg tablet See Rx Instructions .ROUTE .COMPLEX Rx Instructions: 3 TAB, TWICE DAILY ondansetron HCl 8 mg Tablet 8 mg PO Q8H PRN (Reason: Nausea) spironolactone 25 mg tablet 12.5 mg PO DAILY pantoprazole 40 mg Tablet,Delayed Release (Dr/Ec) 40 mg PO DAILY ferrous sulfate 325 mg (65 mg iron) Tablet 325 mg PO BID albuterol 90 mcg/actuation Aerosol 90 mcg INHALATION Q4H PRN PRN (Reason: breathing) rosuvastatin 40 mg Tablet 40 mg PO DAILY cabozantinib 20 mg Tablet 20 mg PO DAILY torsemide 40 mg Tablet 40 mg PO DAILY warfarin 10 mg Tablet 7 mg PO DAILY losartan 50 mg tablet 50 mg PO DAILY Qty: 60 0RF prednisone 20 mg tablet 20 mg PO BID Qty: 10 0RF cefdinir 300 mg capsule 300 mg PO BID Qty: 14 0RF furosemide [Lasix] 40 mg tablet 40 mg PO DAILY Qty: 14 0RF Primary Care Provider: Jose Ramon Turner Referrals: Jose Ramon Turner MD [Primary Care Provider] -
[2022-04-13 22:34] LABS: Troponin-I HS 126 pg/mL (3.0-78.0)
[2022-04-13 22:42] VITALS: BP 109/82; PULSE 76; PULSE 99; RESP 35; O2SAT 94; O2SAT 98
[2022-04-13 22:59] LABS: International Normalized Ratio 1.9; Prothrombin Time (Protime)PT. 21.7 SECONDS (11.7-14.9)
--- NOTE | 2022-04-13 23:34 | PCM.HP.STD ---
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 Patient went to his PCPs office where labs drawn showed elevated troponin so patient was sent to the emergency department. Of note the patient complains of chest tightness with coughing. He denies any change in weight. He denies any swelling. PFSH Medical History Atrial fibrillation Cancer Chest pain Congestive heart failure (CHF) CPAP (continuous positive airway pressure) dependence Hypertension Irregular heart beat Sleep apnea Smoker Home Medications albuterol 90 mcg/actuation aerosol inhaler 90 mcg inhalation Q4H PRN PRN breathing 12/07/21 [History Last Taken Unknown] cabozantinib 20 mg tablet 20 mg PO DAILY 12/07/21 [History Last Taken Unknown] carvedilol 6.25 mg tablet See Rx Instructions .Route .COMPLEX 12/07/21 [History Last Taken Unknown] cyclobenzaprine 10 mg tablet 10 mg PO TID PRN Spasms 12/07/21 [History Last Taken Unknown] ferrous sulfate 325 mg (65 mg iron) tablet 325 mg PO BID 12/07/21 [History Last Taken Unknown] pantoprazole 40 mg tablet,delayed release 40 mg PO DAILY 12/07/21 [History Last Taken Unknown] rosuvastatin 40 mg tablet 40 mg PO DAILY 12/07/21 [History Last Taken Unknown] spironolactone 25 mg tablet 12.5 mg PO DAILY 12/07/21 [History Last Taken Unknown] torsemide 40 mg tablet 40 mg PO DAILY 12/07/21 [History Last Taken Unknown] warfarin 10 mg tablet 7 mg PO DAILY Check with primary doctor 12/07/21 [History Last Taken Unknown] losartan 50 mg tablet 50 mg PO DAILY #60 tabs 12/09/21 [Rx Last Taken Unknown] Allergy/AdvReac Type Severity Reaction Status Date / Time aspirin [ASA] Allergy Other Verified 04/13/22 22:21 Penicillins Allergy PT UNSURE Verified 04/13/22 22:21 OF REACTION shellfish derived Allergy Hives Verified 04/13/22 22:21 Family History (Updated 04/14/22 @ 00:[address] Dangelo Camacho MD) Other Cancer Heart disease Surgical History (Updated 04/14/22 @ 00:[address] Dangelo Camacho MD) History of nephrectomy, right Social History Smoking Status: Current every day smoker tobacco type: cigars ROS ROS Narrative Pertinent positives and pertinent negatives as noted in HPI. All other systems were reviewed and are negative Vital Signs Vital Signs Vital Signs: 04/13/22 21:17 04/13/22 21:17 04/13/22 22:20 Temperature 96.0 F L 96.0 F L Temperature Source Temporal Temporal Pulse Rate 112 H 112 H Respiratory Rate 18 18 Respiratory Effort Respiratory Depth Respiratory Pattern Blood Pressure 145/105 H 145/105 H Blood Pressure Mean 118 118 Pulse Ox 98 98 96 Oxygen Delivery Method Room Air Room Air Room Air Oxygen Flow Rate (L/min) 04/13/22 22:20 04/13/22 22:22 04/13/22 22:42 Temperature Temperature Source Pulse Rate 112 H 76 Respiratory Rate 40 H Respiratory Effort Short of Breath Labored Accessory Muscle Use Respiratory Depth Shallow Respiratory Pattern Tachypnea Blood Pressure 119/80 Blood Pressure Mean 93 Pulse Ox 99 Oxygen Delivery Method Room Air Room Air Room Air Oxygen Flow Rate (L/min) 04/13/22 22:42 04/13/22 22:42 Temperature Temperature Source Pulse Rate 99 Respiratory Rate 35 H Respiratory Effort Respiratory Depth Respiratory Pattern Blood Pressure 109/82 H Blood Pressure Mean 91 Pulse Ox 94 98 Oxygen Delivery Method Nasal Cannula Nasal Cannula Oxygen Flow Rate (L/min) 2 2 Weight Weight: 116.573 kg Body Mass Index (BMI) 35.8 Physical Exam Narrative Physical exam: General: Well-nourished, well-developed. Head: Normocephalic, atraumatic, no tenderness Eyes: Vision is grossly intact. EOMI ENT, no trauma, moist mucous membranes, no rhinorrhea Neck: Nontender, No thyromegaly. CVS: Regular rate and rhythm. S1-S2 present. No murmur, gallop or rub. Respiratory : Conversational dyspnea. Tachypnea. Bibasilar Rales Abdomen: Soft, nontender, nondistended, normal bowel sounds, no masses : Deferred Back: Nontender, no CVA tenderness. Extremities: Nontender full range of motion, no trauma Skin: Normal color, no trauma, abrasions Neuro: Alert, oriented, cranial nerves II through XII grossly intact. Psychiatry: Normal mood. Normal affect. Not depressed. Not anxious. Results Lab / Micro Data Result Diagrams: 04/13/22 21:40 04/13/22 21:40 Labs: Laboratory Results - last 24 hr 04/13/22 21:40: WBC 5.7, RBC 4.03 L, Hgb 12.8 L, Hct 38.2 L, MCV 94.8 H, MCH 31.8, MCHC 33.5, RDW Std Deviation 69.1 H, RDW Coeff of Lizzie 20.2 H, Plt Count 197, MPV 10.8, Immature Gran % (Auto) 0.400, Neut % (Auto) 79.4 H, Lymph % (Auto) 12.7 L, [place] % (Auto) 7.1, Eos % (Auto) 0.0, Baso % (Auto) 0.4, Absolute Neuts (auto) 4.5, Absolute Lymphs (auto) 0.72 L, Nucleated RBC % 1.8, Differential Comment SCANNED 04/13/22 21:40: Sodium 143, Potassium 3.7, Chloride 111 H, Carbon Dioxide 25.0, Anion Gap 7, BUN 15, Creatinine 1.94 H, Estim Creat Clear Calc 44.21, Est GFR (MDRD) Af Amer 46 L, Est GFR (MDRD) Non-Af 38 L, BUN/Creatinine Ratio 7.7 L, Glucose 125 H, Calcium 9.0, Troponin I High Sens 126 H* 04/13/22 22:29: PT 21.7 H, INR 1.9 Radiology Impression Chest X-Ray 04/13/22 21:40 IMPRESSION: Right sixth rib based mass redemonstrated. Similar bilateral lower lung infiltrates. Electronically Signed: David Moreno MD at 21:56 EST , Assessment & Plan Assessment/Plan (1) Acute exacerbation of CHF (congestive heart failure): PLAN: Plan Acute Exacerbation of heart failure with reduced ejection fraction Echocardiogram on 12/07/2021 was reviewed. Echocardiogram showed moderate concentric left ventricular hypertrophy. Estimated EF is 35%. Moderate global hypokinesis of the left ventricle. Left atrium was moderately enlarged. Right atrium was moderately enlarged. Echocardiogram on 02/26/2022 at outside hospital showed a cardiomyopathy. EF of 40 to +5%. Left ventricular dysfunction was not evaluated due to A-fib. Impression of chest x-ray by radiologist: Right sixth rib based mass redemonstrated. Similar bilateral lower lung infiltrates. Chest x-ray on presentation and previous chest x-ray was visualized and independently interpreted and I agree with radiologist BNP was 699 which is the highest on file so far. Placed on monitored bed on progressve care unit. Weight on admission to the floor; and then daily Strict I&O's On home torsemide 40 mg daily. Received Lasix 40 mg IV push in the emergency department. Lasix 40 mg IV push twice daily ordered. Supplement potassium. Home guideline directed medical therapy continued. Fluid restriction of 1500 mls daily 2 g cardiac diet Atrial fibrillation Patient with history of A-fib and on Coumadin. Ventricular rate on presentation was 100. Home carvedilol continued. Subtherapeutic INR INR of 1.9 on presentation. Escalate dose of home warfarin. Trend PT/INR. VIMAL on CKD stage II. Creatinine presentation was 1.94. Baseline creatinine is around 1.2. Likely secondary cardiorenal syndrome. IV Lasix as above. Trend BMP. Elevated troponin Initial troponin before hospitalization was 118. Troponin was trended to 126 and then to 133. Likely secondary to heart strain from CHF. DVT prophylaxis: Coumadin continued. SCDs ordered since INR is subtherapeutic. Charges/Coding Visit Charges Inpatient E&M: 98396 Init Hosp L3
[2022-04-14] VITALS (9 sets, daily range): BP systolic 115–133; BP diastolic 82–110; PULSE 81–105; RESP 12–36; TEMP 36.2–36.7; O2SAT 92–100; BMI 38.5
[2022-04-14] MEDS: Furosemide 40 MG/4 ML Vial IV ×3 (00:06→17:16)
[2022-04-14 00:36] LABS: Prothrombin Time (Protime)PT. 22.5 SECONDS (11.7-14.9)
[2022-04-14 00:38] LABS: Troponin-I HS 133 pg/mL (3.0-78.0)
--- NOTE | 2022-04-14 02:09 | CPS ---
Patient refused PAP therapy at this time, just wanting to wear O2 for the night. Pt on 2L 96%.
[2022-04-14] MEDS: 0.9% Saline Lock 10 ML Syringe IV ×2 (03:17→10:00)
[2022-04-14 03:55] LABS: Troponin-I HS 121 pg/mL (3.0-78.0)
[2022-04-14 07:34] LABS: ALB/GLOB Ratio 0.8 RATIO (0.9-2.4); AST(SGOT) 37 U/L (15-37); Alanine Aminotransfer ALT/SGPT 46 U/L (16-61); Albumin, Serum 2.8 g/dL (3.2-5.0); Alkaline Phosphatase 75 U/L (45-117); Anion Gap 10 (5-15); BUN 18 mg/dL (7-18); BUN/Creat Ratio 9.4 RATIO (10-20); Chloride 108 mmol/L (98-107); Creatinine, Serum 1.91 mg/dL (0.70-1.30); EST Glomerular Filtration Rate 39 mL/min (>60); Est Glom Filt Rate - Afr Amer 47 mL/min (>60); Estimated Creatinine Clearance 43.53 ml/min; Globulin 3.7 g/dL (2.2-4.2); Glucose 116 mg/dL (74-106); Potassium 3.9 mmol/L (3.5-5.1); Protein, Total 6.5 g/dL (6.4-8.2); Sodium Level 142 mmol/L (136-145)
--- NOTE | 2022-04-14 07:37 | PCM.PN.HOSP ---
Reason for Visit Reason for Visit: Diagnoses Heart failure, unspecified (04/13/22) Subjective Subjective Mr. 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 He evidently went to his primary care physician's office where lab work was drawn and he had an elevated troponin so he was sent to the emergency department. Patient complained of chest tightness with coughing. He denied any weight changes or swelling. His nephrectomy was performed on February 06 by Brandon Lopez at [facility]. He does have metastatic disease to bone. He denied any fevers or chills on presentation. He states that the cough he has been experiencing is chronic and that he also has dyspnea on exertion. His CBC was overall unremarkable on presentation other than a mild anemia with a hemoglobin of 12.8. His white count was normal however he did have a very mild left shift with a 79.4% neutrophilia he does have an elevated serum creatinine however with his previous nephrectomy I am not clear what his baseline is running. A BNP was obtained and found to be 699. His initial troponin was 118 and they were cycled with follow-ups being 126 and then 121. He was admitted for acute exacerbation of CHF. He is on supplemental oxygen at 2 L however this appears to be baseline. Patient does state that his shortness of breath does seem to feel better overall. He has not gotten up and moved around yet. He is denying any chest pain at this time. He admits to history of sleep apnea and would like a mask if possible. I informed we would get one ordered for him. Objective Data Objective Data Vital Signs: Vital Signs Temp Pulse Resp BP Pulse Ox O2 Del Method O2 Flow Rate 97.6 F L 88 30 H 115/99 H 98 Nasal Cannula 2 04/14/22 05:18 04/14/22 05:18 04/14/22 05:18 04/14/22 05:18 04/14/22 05:18 04/14/22 05:18 04/14/22 05:18 Oxygen Flow Rate (L/min) 2 Oxygen Delivery Method Nasal Cannula Weight: 121.6 kg Body Mass Index (BMI) 38.5 Intake & Output: Intake and Output for Last 24 Hours 04/12/22 04/13/22 04/14/22 23:59 23:59 23:59 Intake Total 120 / 120 Output Total 330 / 330 Balance -210 / -210 Lab / Micro Data Result Diagrams: 04/14/22 03:18 04/14/22 03:18 Labs: Laboratory Results - last 24 hr 04/13/22 21:40: WBC 5.7, RBC 4.03 L, Hgb 12.8 L, Hct 38.2 L, MCV 94.8 H, MCH 31.8, MCHC 33.5, RDW Std Deviation 69.1 H, RDW Coeff of Lizzie 20.2 H, Plt Count 197, MPV 10.8, Immature Gran % (Auto) 0.400, Neut % (Auto) 79.4 H, Lymph % (Auto) 12.7 L, [place] % (Auto) 7.1, Eos % (Auto) 0.0, Baso % (Auto) 0.4, Absolute Neuts (auto) 4.5, Absolute Lymphs (auto) 0.72 L, Nucleated RBC % 1.8, Differential Comment SCANNED 04/13/22 21:40: Sodium 143, Potassium 3.7, Chloride 111 H, Carbon Dioxide 25.0, Anion Gap 7, BUN 15, Creatinine 1.94 H, Estim Creat Clear Calc 44.21, Est GFR (MDRD) Af Amer 46 L, Est GFR (MDRD) Non-Af 38 L, BUN/Creatinine Ratio 7.7 L, Glucose 125 H, Calcium 9.0, Troponin I High Sens 126 H* 04/13/22 21:40: PT 22.5 H, INR 2.0 04/13/22 22:29: PT 21.7 H, INR 1.9 04/14/22 00:05: Troponin I High Sens 133 H* 04/14/22 03:18: Troponin I High Sens 121 H* 04/14/22 03:18: Sodium 142, Potassium 3.9, Chloride 108 H, Carbon Dioxide 24.0, Anion Gap 10, BUN 18, Creatinine 1.91 H, Estim Creat Clear Calc 43.53, Est GFR (MDRD) Af Amer 47 L, Est GFR (MDRD) Non-Af 39 L, BUN/Creatinine Ratio 9.4 L, Glucose 116 H, Calcium 9.0, Total Bilirubin 1.20 H, AST 37, ALT 46, Alkaline Phosphatase 75, Total Protein 6.5, Albumin 2.8 L, Globulin 3.7, Albumin/Globulin Ratio 0.8 L Radiography Diagnostic Testing: Radiology Impression Chest X-Ray 04/13/22 21:40 IMPRESSION: Right sixth rib based mass redemonstrated. Similar bilateral lower lung infiltrates. Electronically Signed: David Moreno MD at 21:56 EST , Physical Exam Const alert, oriented x3, no apparent distress and well nourished Constitutional Narrative: Obese, -Emirati, male sitting up in bed on supplemental oxygen at 2 L, watching television, appears comfortable, nontoxic HEENT head/scalp atraumatic and moist oral mucous membranes HEENT Narrative: Mallampati 3, no thrush Head and Scalp: normocephalic Resp no retractions and no use of accessory muscles Resp Narrative: Diffusely diminished with few scattered crackles at bases, mild tachypnea Auscultation: rales; Negative for rhonchi or wheezes Cardio regular rate, regular rhythm, S1 normal heart sound, S2 normal heart sound, no murmurs, no rub, no gallops and no clicks GI normal to inspection, nondistended, normoactive bowel sounds, soft to palpation, non-tender and non-distended Extremity no clubbing, cyanosis or edema Neuro oriented x3, moves all extremities and no focal motor deficits Speech: speech normal Psych affect normal Psych Narrative: Very pleasant, appropriately interactive Assessment & Plan Assessment/Plan (1) Acute exacerbation of CHF (congestive heart failure): (2) Systolic CHF, acute: (3) Hypoxemia: (4) Elevated serum creatinine: (5) Elevated troponin I level: PLAN: Plan Hypoxia secondary to acute exacerbation of HFrEF -We will repeat echo with elevated BNP and troponin elevation -These both may be related to his worsening renal function -Patient is typically on room air at home however requiring 2 L nasal cannula -Repeat echocardiogram done today showed an EF of 40% with mild to moderate global hypokinesis of the LV, moderate biatrial enlargement, mild aortic valve insufficiency -Continue IV diuresis but monitor renal function carefully -Fluid restriction -Sodium restriction -Daily weights -Accurate I's and O's Troponin elevation -With shortness of breath being an issue in his history I will rule out ischemia with a stress test to be done tomorrow -Troponins have been [phone] -This elevation may be related to his worsening renal function -Go cardiogram shows no change from previous on 02/2022 at outside facility Serum creatinine elevation -Unclear if this is VIMAL or new CKD -Patient underwent a nephrectomy on February 06, 2022 -His renal function was normal prior to this but I have none except this admission since that point time -Patient did undergo radiation and is now on chemotherapy and his chemotherapy may be causing VIMAL -Continue to monitor closely especially with diuresis -We will avoid contrast -Avoid nephrotoxins Clear-cell carcinoma-metastatic to bone -Status post nephrectomy 02/06/2022--> Dr. Brandon Lopez at [facility] -Currently on chemotherapy -Patient has undergone radiation as well to his right kidney area -Recommend close outpatient follow-up after discharge Hypertension -Continue home carvedilol -Continue home losartan for now but will need to monitor closely with renal function -Hold home torsemide with IV diuresis -Continue home Aldactone Atrial fibrillation -Continue beta-blockade -Continue Coumadin -Check a.m. INR -INR on admission was 1.9 Hyperlipidemia -Continue home statin GERD -Continue home Protonix NIMCO -We will order CPAP for use here with naps and nocturnally Tobacco abuse -Recommend cessation -Make nicotine patch available if needed DVT prophylaxis -Patient is fully anticoagulated with Coumadin however INR subtherapeutic at 1.9 -Repeat in a.m. Charges/Coding Visit Charges Inpatient E&M: 75702 Subs Hosp L2
[2022-04-14 07:39] LABS: Absolute Neutrophil Count 4.2 X10^3/uL (2.0-7.7); Basophil# 0.02 X10^3/uL; Basophil% 0.4 % (0-1); Eosinophil# 0.01 X10^3/uL; Eosinophils% 0.2 % (0-5); Hematocrit 38.8 % (40-54); Hemoglobin 12.8 g/dL (13.0-16.5); Lymphocyte % 13.1 % (19-41); Mean Corpuscular Hgb 31.7 pg (27.0-32.0); Mean Platelet Vol. 11.7 fl (6.2-12.0); Monocyte# 0.45 X10^3/uL; Monocyte% 8.4 % (0-10); NRBC Flagged by Analyzer 2.6 % (0-5); Neutrophil # 4.15 X10^3/uL (2.7-7.7); Neutrophil % 77.3 % (47-70); POSITIVE MORPHOLOGY YES; Platelet Count 202 K/mm3 (150-450); RBC Distribution Width CV 20.1 % (11.6-14.6); RBC Distribution Width SD 70.3 fl (35.1-43.9); Red Blood Count 4.04 M/mm3 (4.6-6.2); White Blood Count 5.4 K/mm3 (4.4-11.0)
[2022-04-14] MEDS: Potassium Chloride Oral Tablet 20 MEQ PO (07:40)
--- NOTE | 2022-04-14 07:44 | ECHOD_ITS ---
Reason For Study: SOB Procedure This was a 2D Doppler, Color Flow transthoracic echocardiogram. Myocardial strain analysis was performed in this exam to aid in the assessment of cardiac function. Exam performed portable in ICU/CCU. Left Ventricle Normal LV size. Moderate concentric left ventricular hypertrophy. The estimated ejection fraction is 40 %. There is mild to moderate global hypokinesis of the left ventricle. Right Ventricle Normal RV size. Normal systolic function. Atria The left atrium is moderately enlarged. The right atrium is moderately enlarged. Mitral Valve Normal mitral valve. Moderate (2+) eccentric mitral valve insufficiency. Tricuspid Valve Normal tricuspid valve. Mild to moderate (1-2+) tricuspid valve insufficiency. Pulmonary artery systolic pressure is 48 mmHg. Aortic Valve Normal aortic valve. Trisinus/trileaflet aortic valve. Mild (1+) aortic valve insufficiency. Pulmonic Valve Normal pulmonic valve. Great Vessels Mildly dilated aortic root. The pulmonary artery is normal size. Normal inferior vena cava. Pericardium/Pleural No pericardial effusion. MMode/2D Measurements & Calculations LVIDd: 5.3 cm IVSd: 1.8 cm Ao root diam: 4.0 cm LVIDs: 4.4 cm LVPWd: 1.8 cm RVDd: 3.1 cm FS: 15.9 % LAV(MOD-bp): 111.7 ml LVAd ap4: 44.2 cm2 LVAd ap2: 47.4 cm2 LAV(MOD-bp) Indexed: 47.3 ml/m2 LVLd ap4: 9.3 cm LVLd ap2: 9.4 cm LAV(MOD-sp2): 98.3 ml EDV(MOD-sp4): 170.3 ml EDV(MOD-sp2): 194.9 ml LAV(MOD-sp4): 115.6 ml EDV(sp4-el): 178.0 ml EDV(sp2-el): 202.0 ml LVAs ap4: 32.2 cm2 LVAs ap2: 36.0 cm2 LVLs ap4: 8.3 cm LVLs ap2: 8.9 cm ESV(MOD-sp4): 105.0 ml ESV(MOD-sp2): 118.9 ml ESV(sp4-el): 106.0 ml ESV(sp2-el): 123.2 ml EF(MOD-sp4): 38.4 % EF(MOD-sp2): 39.0 % EF(sp4-el): 40.5 % SV(MOD-sp4): 65.3 ml SV(MOD-sp2): 75.9 ml SV(sp4-el): 72.0 ml LA dimension(2D): 5.5 cm LA A4 area: 31.0 cm2 RA A4 area: 28.5 cm2 Doppler Measurements & Calculations MV E max wisam: 117.0 cm/sec Lat Peak E' Wisam: 12.4 cm/sec Med Peak E' Wisam: 6.7 cm/sec E/E' lat: 9.4 E/E' med: 17.4 Ao V2 max: 121.8 cm/sec AI max wisam: 415.0 cm/sec LV V1 max: 99.2 cm/sec Ao max P.1 mmHg AI max P.3 mmHg LV V1 max P.0 mmHg AI dec slope: 203.5 cm/sec2 AI P1/2t: 597.4 msec TR max wisam: 331.2 cm/sec TR max P.9 mmHg ECHO/Echo Complete Interpretation Summary Normal LV size. Moderate concentric left ventricular hypertrophy. The estimated ejection fraction is 40 %. There is mild to moderate global hypokinesis of the left ventricle. The left atrium is moderately enlarged. The right atrium is moderately enlarged. Mild (1+) aortic valve insufficiency. The global longitudinal strain = -10.6% (abnormal). The global longitudinal str ain is severely abnormal. Ordering Physician: Carol Chiu Referring Physician: Bari Turner MD Performed By: Ghazal Martinez RDCS
[2022-04-14 07:48] LABS: Differential Indicated SCAN CRITERIA MET
[2022-04-14 08:27] LABS: Differential Comment SCANNED
--- NOTE | 2022-04-14 12:11 | CHAPLAIN ---
Type of Pastoral Visit _x__ Initial Visit ___ Follow-up Visit ___ On-call Visit ___ General Patient Visit ___ Spiritual Assessment ___ Family Conference ___ Bereavement ___ Rapid Response ___ Code Blue ___ Other (describe below) Pastoral Care Referral From _x__ Patient ___ Family ___ Nurse ___ Physician ___ Field Staff ___ Mold Stamper And Repairer ___ Other (describe below) Sacrament/Intervention ___ Active listening ___ Anointing ___ Islam ___ Bereavement ___ Communion ___ Maddison exploration ___ ___ Life review ___ Prayer ___ Reconciliation ___ Sacrament of Sick _x__ Supportive presence ___ Wedding ___ Other (describe below) Pastoral Comments patient sitting on side of bed; spouse in chair in room; offer of support and pt states that he is fine; offer of prayer and pt declines; spouse is offered support but she does not engage in conversation; reminder to both that staff is available for their care and support; left room
--- NOTE | 2022-04-14 14:05 | CASEMGMT ---
RN?CM?ASSEMBLER ADJUSTER?CM?to room to meet with patient for initial transition planning/care coordination?assessment.?RN?CM?introduced self and role at [facility].? Pt voices understanding and consents to?assessment?at this time.? Pt resting in bed in no distress at this time.? @ bedside. Pt is A/O at this time and answers all questions appropriately.?? Care providers, pharmacy, and demographics verified/updated at this time. PCP: Dr Turner Specialists:Dr Da Silva-oncologist @ [facility]. Pt states he also sees a commercial representative @ [facility], but does not remember his name Preferred Pharmacy: [facility] Retail Insurance:MMO. Pt requested copy of [id number] to submit to his insurance co. Call placed to [place] in PFS. She stated these are not available for 7-10 days after discharge. Pt made aware. Prescription Benefit:?Yes Living Will/HPOA:?Has a HCPOA, who is his , Tyshawn, but does not have a LW. requested a copy of the form. Given at this time. Made aware, if pt needs assistance w/completing, that SW can assist, if needed. They voice understanding. LNOK: , Tyshawn Living Arrangements:Lives w/ in one-story home w/1 step to enter. Independent. Transportation:?Pt states drives self and states no transportation concerns at this time.? also drives. DME: Has a CPAP. Uses no AD to ambulate. No home O2. HHC/SNF: No hx of either. No needs identified. Pt wishes to return home and states has no concerns with going home at time of discharge.? ?CM?to follow for home oxygen needs and any further discharge planning/needs.? Pt voices no further concerns/needs at this time.? Advised pt to ask for?CM?if any further questions/concerns/needs arise.? Voices understanding. PLAN:??Home w/spousal support and discharge plans in place. Talon MCNAMARAN?RN?CM
[2022-04-14] MEDS: Atorvastatin Calcium 80 MG Tablet PO (20:50)
[2022-04-15] VITALS (10 sets, daily range): BP systolic 122–142; BP diastolic 88–104; PULSE 76–106; RESP 17–33; TEMP 36.4–36.9; O2SAT 86–100
--- NOTE | 2022-04-15 05:55 | EKG12_ITS ---
Test Reason : morning EKG Blood Pressure : / mmHG Vent. Rate : 089 BPM Atrial Rate : 000 BPM P-R Int : 000 ms QRS Dur : 096 ms QT Int : 368 ms P-R-T Axes : 000 070 070 degrees QTc Int : 447 ms Atrial fibrillation with premature ventricular or aberrantly conducted complexes Nonspecific T wave abnormality Abnormal ECG When compared with ECG of 15-APR-2022 05:31, MANUAL COMPARISON REQUIRED, DATA IS UNCONFIRMED Confirmed by MICHAELLE CLEMENT, DUNG ([id number]), associate editor LISA ADAM ([id number]) on 04/17/2022 12:51:36 P M Referred By: Aram Confirmed By:TAMARA BRASWELL MD
[2022-04-15] MEDS: Losartan Potassium 50 MG Tablet PO (06:03)
[2022-04-15 06:46] LABS: Absolute Lymphocyte Count 0.77 X10^3/uL (0.83-4.51); Absolute Neutrophil Count 3.8 X10^3/uL (2.0-7.7); Basophil# 0.03 X10^3/uL; Basophil% 0.6 % (0-1); Eosinophil# 0.02 X10^3/uL; Eosinophils% 0.4 % (0-5); Hematocrit 38.5 % (40-54); Hemoglobin 12.6 g/dL (13.0-16.5); Lymphocyte # 0.77 X10^3/ul (0.83-4.51); Lymphocyte % 15.1 % (19-41); Mean Corp Hgb Conc 32.7 g/dL (32-36); Mean Corpuscular Hgb 32.1 pg (27.0-32.0); Mean Corpuscular Volume 98.2 fL (80-94); Mean Platelet Vol. 11.1 fl (6.2-12.0); Monocyte# 0.43 X10^3/uL; Monocyte% 8.4 % (0-10); NRBC Flagged by Analyzer 5.7 % (0-5); Neutrophil # 3.79 X10^3/uL (2.7-7.7); Neutrophil % 74.5 % (47-70); POSITIVE COUNT YES; POSITIVE MORPHOLOGY YES; Platelet Count 212 K/mm3 (150-450); RBC Distribution Width CV 20.7 % (11.6-14.6); RBC Distribution Width SD 73.5 fl (35.1-43.9); Red Blood Count 3.92 M/mm3 (4.6-6.2); White Blood Count 5.1 K/mm3 (4.4-11.0)
[2022-04-15 06:50] LABS: Differential Indicated SCAN CRITERIA MET
[2022-04-15 06:57] LABS: International Normalized Ratio 2.1; Prothrombin Time (Protime)PT. 23.1 SECONDS (11.7-14.9)
[2022-04-15 07:20] LABS: Anisocytosis 2+; Macrocytosis 1+
[2022-04-15 07:24] LABS: Anion Gap 6 (5-15); BUN 28 mg/dL (7-18); BUN/Creat Ratio 16.3 RATIO (10-20); Calcium,Total 9.2 mg/dL (8.5-10.1); Chloride 107 mmol/L (98-107); Cholesterol 190 mg/dL (200); Creatinine, Serum 1.72 mg/dL (0.70-1.30); EST Glomerular Filtration Rate 44 mL/min (>60); Est Glom Filt Rate - Afr Amer 53 mL/min (>60); Estimated Creatinine Clearance 48.34 ml/min; Glucose 114 mg/dL (74-106); High Density Lipoprotein 39 mg/dL; Magnesium 2.1 mg/dL (1.6-2.6); Phosphorus 3.9 mg/dL (2.5-4.9); Potassium 4.1 mmol/L (3.5-5.1); Sodium Level 140 mmol/L (136-145); Triglycerides 159 mg/dL; Very Low Density Lipoprotein 32 mg/dL (5-40)
[2022-04-15] MEDS: Pantoprazole Sodium 40 MG Tablet PO (09:17)
[2022-04-15] MEDS: Potassium Chloride Oral Tablet 20 MEQ PO (09:17)
[2022-04-15] MEDS: Furosemide 40 MG/4 ML Vial IV ×2 (09:17→17:29)
[2022-04-15] MEDS: Carvedilol 6.25 MG Tablet PO (09:18)
[2022-04-15] MEDS: Spironolactone 25 MG Tablet 12.5 MG PO (09:18)
[2022-04-15] MEDS: 0.9% Saline Lock 10 ML Syringe IV ×2 (09:18→17:29)
[2022-04-15] MEDS: Ferrous Sulfate 325 MG Tablet PO ×2 (11:45→17:27)
--- NOTE | 2022-04-15 16:47 | PN.HOSP_ITS ---
Reason for Visit Reason for Visit: Diagnoses Acute systolic (congestive) heart failure (04/13/22) Heart failure, unspecified (04/13/22) Hypoxemia (04/13/22) Other specified abnormalities of plasma proteins (04/13/22) Other specified abnormal findings of blood chemistry (04/13/22) Subjective Subjective Patient reports subjectively he is feeling better overall. He unfortunately ate this morning and was to be n.p.o. per orders therefore his stress test cannot be performed today and will have to be tomorrow morning. We did do an ambulatory pulse ox on him and he will require oxygen as of now at discharge as he desatted with exertion to 86% on room air. It appears that he will require room air at rest and 2 L of oxygen with exertion. I did discuss with him if his stress test is unremarkable tomorrow we may be able to get him discharged home. He seemed pleased about this. Objective Data Objective Data Vital Signs: Vital Signs Temp Pulse Resp BP Pulse Ox O2 Del Method O2 Flow Rate 97.7 F L 93 18 122/88 H 99 Room Air 2 04/15/22 15:00 04/15/22 15:00 04/15/22 15:00 04/15/22 15:00 04/15/22 15:00 04/15/22 15:09 04/15/22 15:09 FiO2 35 04/15/22 04:10 Oxygen Flow Rate (L/min) [ 2 AMBULATING with Oxygen #1] Oxygen Flow Rate (L/min) 2 Oxygen Delivery Method Room Air Weight: 121.8 kg Body Mass Index (BMI) 38.5 Intake & Output: Intake and Output for Last 24 Hours 04/13/22 04/14/22 04/15/22 23:59 23:59 23:59 Intake Total 745 / 745 480 / 480 Output Total 1505 / 1505 Balance -760 / -760 480 / 480 Lab / Micro Data Result Diagrams: 04/15/22 06:21 04/15/22 06:21 Labs: Laboratory Results - last 24 hr 04/15/22 06:21: PT 23.1 H, INR 2.1 04/15/22 06:21: WBC 5.1, RBC 3.92 L, Hgb 12.6 L, Hct 38.5 L, MCV 98.2 H, MCH 32.1 H, MCHC 32.7, RDW Std Deviation 73.5 H, RDW Coeff of Lizzie 20.7 H, Plt Count 212, MPV 11.1, Immature Gran % (Auto) 1.000 H, Neut % (Auto) 74.5 H, Lymph % (Auto) 15.1 L, Dixie % (Auto) 8.4, Eos % (Auto) 0.4, Baso % (Auto) 0.6, Absolute Neuts (auto) 3.8, Absolute Lymphs (auto) 0.77 L, Nucleated RBC % 5.7 H, Anisocytosis 2+, Macrocytosis 1+ 04/15/22 06:21: Sodium 140, Potassium 4.1, Chloride 107, Carbon Dioxide 27.0, Anion Gap 6, BUN 28 H, Creatinine 1.72 H, Estim Creat Clear Calc 48.34, Est GFR (MDRD) Af Amer 53 L, Est GFR (MDRD) Non-Af 44 L, BUN/Creatinine Ratio 16.3, Glucose 114 H, Calcium 9.2, Phosphorus 3.9, Magnesium 2.1, Triglycerides 159, Cholesterol 190, LDL Cholesterol 119, VLDL Cholesterol 32, HDL Cholesterol 39 L Physical Exam Const alert, oriented x3, no apparent distress and well nourished Constitutional Narrative: Obese, -[place], male lying in bed on supplemental oxygen at 2 L, watching television, appears comfortable, nontoxic HEENT head/scalp atraumatic and moist oral mucous membranes HEENT Narrative: Mallampati 3, no thrush Resp normal respiratory effort, no retractions, no use of accessory muscles and clear to auscultation bilaterally Resp Narrative: Crackles have resolved, diffusely diminished, tachypnea has resolved Auscultation: rales; Negative for rhonchi or wheezes Cardio regular rate, regular rhythm, S1 normal heart sound, S2 normal heart sound, no murmurs, no rub, no gallops and no clicks GI normal to inspection, nondistended, normoactive bowel sounds, soft to palpation and non-tender Extremity no clubbing, cyanosis or edema Neuro oriented x3, moves all extremities and no focal motor deficits Speech: speech normal Psych affect normal Psych Narrative: Very pleasant, appropriately interactive Assessment & Plan Assessment/Plan (1) Acute exacerbation of CHF (congestive heart failure): (2) Systolic CHF, acute: (3) Hypoxemia: (4) Elevated serum creatinine: (5) Elevated troponin I level: PLAN: Plan Hypoxia secondary to acute exacerbation of HFrEF -We will repeat echo with elevated BNP and troponin elevation -These both may be related to his worsening renal function -Patient is typically on room air at home however requiring 2 L nasal cannula -It appears he will require 2 L of oxygen with exertion at discharge -Repeat echocardiogram done today showed an EF of 40% with mild to moderate global hypokinesis of the LV, moderate biatrial enlargement, mild aortic valve insufficiency -Continue IV diuresis but monitor renal function carefully--> kidney function has improved with diuresis so I SPECT he was off the Starling curve -Fluid restriction -Sodium restriction -Daily weights -Accurate I's and O's Troponin elevation -With shortness of breath being an issue in his history I will rule out ischemia with a stress test to be done tomorrow -Stress test was to be done today however dietary gave the patient a meal ann pite n.p.o. status so will have to be deferred till tomorrow -Troponins have been [phone] -This elevation may be related to his worsening renal function -Go cardiogram shows no change from previous on 02/2022 at outside facility Serum creatinine elevation -Unclear if this is VIMAL or new CKD -Function is a little bit better today despite diuresis at 1.7 so I suspect he at least has some VIMAL and was off the Starling curve -Patient underwent a nephrectomy on February 06, 2022 -His renal function was normal prior to this but I have none except this admission since that point time -Patient did undergo radiation and is now on chemotherapy and his chemotherapy may be causing VIMAL -Continue to monitor closely especially with diuresis -We will avoid contrast -Avoid nephrotoxins 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 Brandon Lopez at [facility] -Currently on chemotherapy -Patient has undergone radiation as well to his right kidney area -Recommend close outpatient follow-up after discharge Hypertension -Continue home carvedilol -Continue home losartan -Hold home torsemide with IV diuresis and likely restart at discharge--> may need a higher dose -Continue home Aldactone Atrial fibrillation -Continue beta-blockade -Continue Coumadin -Repeat a.m. INR -INR is 2.1 Hyperlipidemia -Continue home statin GERD -Continue home Protonix NIMCO -We will order CPAP for use here with naps and nocturnally Tobacco abuse -Recommend cessation -Make nicotine patch available if needed DVT prophylaxis -INR therapeutic Charges/Coding Visit Charges Inpatient E&M: 65137 Subs Hosp L2
[2022-04-15] MEDS: Atorvastatin Calcium 80 MG Tablet PO (20:56)
[2022-04-16] VITALS (7 sets, daily range): BP systolic 120–122; BP diastolic 88–97; PULSE 59–98; RESP 15–26; TEMP 36.5–36.9; O2SAT 93–100
--- NOTE | 2022-04-16 00:48 | CPS ---
Addendum entered and electronically signed by Sylvain Callahan 04/16/22 01:18: CPAP pressure also increased to 10 for apneas Original Note: Chin strap placed on patient for oral breathing during sleep with CPAP in use.
[2022-04-16] MEDS: Losartan Potassium 50 MG Tablet PO (05:09)
--- NOTE | 2022-04-16 05:32 | CPS ---
Patient refusing to wear V60 Full face mask due to it making him feel claustrophobic. Patient originally on a nasal mask at home. Oral breathing observed with low heart rate and apneas. RN also noted a small run of V-tach in patient sleep. Sleep Lab machine started with Ambreen Large full face mask for patient comfort and long periods of apneas observed. CPAP pressure increased to 10cm H2O.
[2022-04-16 06:40] LABS: International Normalized Ratio 2.1; Prothrombin Time (Protime)PT. 23.6 SECONDS (11.7-14.9)
[2022-04-16 07:07] LABS: Anion Gap 5 (5-15); BUN 29 mg/dL (7-18); BUN/Creat Ratio 17.2 RATIO (10-20); Chloride 105 mmol/L (98-107); Creatinine, Serum 1.69 mg/dL (0.70-1.30); EST Glomerular Filtration Rate 45 mL/min (>60); Est Glom Filt Rate - Afr Amer 54 mL/min (>60); Estimated Creatinine Clearance 49.19 ml/min; Glucose 110 mg/dL (74-106); Potassium 3.7 mmol/L (3.5-5.1); Sodium Level 141 mmol/L (136-145)
[2022-04-16] MEDS: Spironolactone 25 MG Tablet 12.5 MG PO (13:32)
[2022-04-16] MEDS: Pantoprazole Sodium 40 MG Tablet PO (13:33)
[2022-04-16] MEDS: Ferrous Sulfate 325 MG Tablet PO (13:33)
[2022-04-16] MEDS: Carvedilol 6.25 MG Tablet PO (13:34)
[2022-04-16] MEDS: Bumetanide 2 MG Tablet PO (13:34)
[2022-04-16] MEDS: Potassium Chloride Oral Tablet 20 MEQ PO (13:34)
--- NOTE | 2022-04-16 13:41 | DS.PCM_ITS ---
Providers Date of Admission: 04/13/22 Date of Discharge: 04/16/22 Primary Care Physician: Dr. Jose Ramon Turner MD Reason For Visit: ACUTE ON CHRONIC HEART FAILURE Diagnosis Discharge Diagnosis (1) Acute exacerbation of CHF (congestive heart failure): Status: Chronic Code(s): I50.9 - Heart failure, unspecified (2) Systolic CHF, acute: Status: Acute Code(s): I50.21 - Acute systolic (congestive) heart failure (3) Hypoxemia: Status: Acute Code(s): R09.02 - Hypoxemia (4) Elevated serum creatinine: Status: Acute Code(s): R79.89 - Other specified abnormal findings of blood chemistry (5) Elevated troponin I level: Status: Acute Code(s): R77.8 - Other specified abnormalities of plasma proteins Medications at Discharge Home Medications albuterol 90 mcg/actuation aerosol inhaler 90 mcg inhalation Q4H PRN PRN breathing 12/07/21 cabozantinib 20 mg tablet 20 mg PO DAILY 12/07/21 carvedilol 6.25 mg tablet 6.25 mg DAILY 12/07/21 cyclobenzaprine 10 mg tablet 10 mg PO TID PRN Spasms 12/07/21 ferrous sulfate 325 mg (65 mg iron) tablet 325 mg PO BID 12/07/21 pantoprazole 40 mg tablet,delayed release 40 mg PO DAILY 12/07/21 rosuvastatin 40 mg tablet 40 mg PO DAILY 12/07/21 spironolactone 25 mg tablet 12.5 mg PO DAILY 12/07/21 warfarin 10 mg tablet 7 mg PO DAILY Check with primary doctor 12/07/21 losartan 50 mg tablet 50 mg PO DAILY #60 tabs 12/09/21 bumetanide 2 mg tablet 2 mg PO BIDLX #60 tabs 04/16/22 Hospital Course Operations None Procedures 2-D Echocardiogram, EKG, Nuclear stress test and - (Chest x-ray) Summary of Care Provided Minutes Spent on Discharge: 37 Hospital Course: Mr. Vega is a 57-year-old -[place] Citizen male with a history of metastatic clear-cell carcinoma of the right kidney who is status post nephrectomy and radiation and now undergoing chemotherapy who presented to the emergency department at [facility] with a 2-week history of progressively worsening shortness of breath. He evidently went to his primary care phys ician's office where lab work was drawn and he was noted to have an elevated troponin. Given these findings he was sent to the emergency department. He complained of chest tightness and coughing along with the shortness of breath. He denied any noted weight changes or swelling. His nephrectomy was performed on February 06 of last year by Dr. Brandon Lopez at [facility]. He does have metastatic disease to the bone. He denied any fevers or chills on presentation. He reported the cough that he had been experiencing was chronic and that he also was noting dyspnea on exertion. His CBC was unremarkable other than mild chronic anemia on presentation. His serum creatinine was elevated at 1.9 on presentation and his BNP was found to be 699 with an initial troponin of 118. His cardiac enzymes were cycled and slowly trended up to 126 and then down to 121. He was admitted for acute exacerbation of CHF and required supplemental oxygen at 2 L. The patient is not oxygen dependent baseline. He was treated with diuresis using IV diuretics and an echocardiogram was completed on 04/14/2022. Echo demonstrated moderate concentric left ventricular hypertrophy, EF of 40%, mild to moderate global hypokinesis of the LV, moderate left atrial enlargement, moderate right atrial enlargement, and mild aortic valve insufficiency. This is stable when compared to previous echocardiogram. We continue to diurese him and clinically he improved. On 04/15/2022 he required supplemental oxygen at 2 L with exertion to maintain oxygen saturations greater than 88%. This was reassessed on 04/16/2022 for the need of home oxygen and he required no oxygen with rest or exertion. A stress test was obtained as he is high risk for coronary disease and this was negative for any inducible ischemia. The patient was chest pain-free throughout his entire hospital stay including during the stress test. On discharge I discontinued his to torsemide and converted him to Bumex 2 mg p.o. twice daily. His serum creatinine did improve from 1.9 down to 1.69 on the day of discharge. I suspect his rise was related to him being off the Starling curve as he did improve with diuresis. It is unclear what his baseline serum creatinine is since his nephrectomy as I have no recent blood work prior to admission. I have asked him to follow-up with his primary care physician within the next 2 weeks for reevaluation and obtain a basic metabolic profile to be done within the next week to reassess his electr olyte and kidney function. He is also to follow-up with his primary provider for instruction with his Coumadin. INR was 2.1 on the day of discharge and he was therapeutic. He is in the need of switching apartment locator. He request to see Dr. Gaona however he needs to check with his insurance that it is covered. I did give him the information for follow-up after discharge. He was discharged home in stable condition with a prescription for the Bumex on 04/16/2022. Discharge diagnoses: Acute hypoxia secondary to acute exacerbation of HFrEF-resolved Chronic HFrEF Troponin elevation Serum creatinine elevation Metastatic clear-cell carcinoma Hypertension Atrial fibrillation-chronic Hyperlipidemia GERD NIMCO Tobacco abuse Physical Exam Const alert, oriented x3, no apparent distress and well nourished Constitutional Narrative: Obese, -[place] Citizen, sitting up on the edge of the bed, on room air, at bedside, appears comfortable, nontoxic General Appearance: cooperative, comfortable, well kempt and well developed Orientation / Consciousness: awake, oriented to person, oriented to place and oriented to time Exam Limitations: no limitations Nutritional Appearance: obese HEENT normocephalic, head/scalp atraumatic, hearing grossly normal bilaterally and moist oral mucous membranes HEENT Narrative: Mallampati is 3, no thrush Eyes PERRL, EOMs intact bilaterally and conjunctivae normal Eyes Narrative: No scleral icterus Neck no lymphadenopathy, supple and no JVD Neck Narrative: Trachea midline, no thyroid enlargement Resp normal respiratory effort, no retractions, no use of accessory muscles and clear to auscultation bilaterally Auscultation: Negative for rales, rhonchi or wheezes Cardio regular rate, regular rhythm, S1 normal heart sound, S2 normal heart sound, no murmurs, no rub, no gallops and no clicks GI normal to inspection, nondistended, normoactive bowel sounds, soft to palpation, non-tender and non-distended Extremity no clubbing, cyanosis or edema Extremity Narrative: 2+ pedal pulses Skin no rashes or lesions noted, no wounds, skin turgor normal and no jaundice Neuro oriented x3, CN's II-XII intact bilaterally, moves all extremities and no focal motor deficits Speech: speech normal Psych affect normal Psych Narrative: Very pleasant, appropriately interactive Weight / BMI Weight Weight: 121.1 kg Body Mass Index (BMI) 38.5 ABG / Lab / Microbiology Data Result Diagrams: 04/15/22 06:21 04/16/22 06:07 Laboratory: Laboratory Results - last 24 hr 04/16/22 06:07: PT 23.6 H, INR 2.1 04/16/22 06:07: Sodium 141, Potassium 3.7, Chloride 105, Carbon Dioxide 31.0, Anion Gap 5, BUN 29 H, Creatinine 1.69 H, Estim Creat Clear Calc 49.19, Est GFR (MDRD) Af Amer 54 L, Est GFR (MDRD) Non-Af 45 L, BUN/Creatinine Ratio 17.2, Glucose 110 H, Calcium 9.0 D/C Instructions Discharge Diet: Low fat / Low cholesterol, 8 Cup Fluid Restriction and 4000 mg Sodium Diet Discharge Activity: Return to Normal Activity Return to work on: 04/20/22 Meaningful Use Info Meaningful Use Diagnoses (Choose all that apply): None applicable Discharge Plan Admission Admit Date/Time: 04/13/22 23:44 Primary Reason for Your Visit: Shortness of breath Attending Provider: Carol Chiu Primary Care Provider: Jose Ramon Turner Consulting Providers: Dangelo Camacho Instructions Additional Instructions / Restrictions: 1. Please call tomorrow to make appointment for follow-up with your primary care physician also at that time please request a basic metabolic profile that you can do early next week to recheck your kidney function and your electrolytes 2. Your INR was therapeutic at 2.1 on discharge. Please follow-up with the physician that manages this for reassessment when they deem appropriate Discharge Orders/Prescriptions Prescriptions: New bumetanide 2 mg Tablet 2 mg PO BIDLX Qty: 60 1RF Continued cyclobenzaprine 10 mg Tablet 10 mg PO TID PRN (Reason: Spasms) carvedilol 6.25 mg tablet 6.25 mg DAILY spironolactone 25 mg tablet 12.5 mg PO DAILY pantoprazole 40 mg Tablet,Delayed Release (Dr/Ec) 40 mg PO DAILY ferrous sulfate 325 mg (65 mg iron) Tablet 325 mg PO BID albuterol 90 mcg/actuation Aerosol 90 mcg INHALATION Q4H PRN PRN (Reason: breathing) rosuvastatin 40 mg Tablet 40 mg PO DAILY cabozantinib 20 mg Tablet 20 mg PO DAILY warfarin 10 mg Tablet 7 mg PO DAILY losartan 50 mg tablet 50 mg PO DAILY Qty: 60 0RF Discontinued torsemide 40 mg Tablet 40 mg PO DAILY Referrals / Follow Up: Jose Ramon Turner MD [Primary Care Provider] - Within 2 Weeks (Please call shree hooper to make appointment for follow-up also at that time please request a basic metabolic profile that you can do early next week to recheck your kidney function and your electrolytes) Moises Gaona MD [Med Staff - Active Staff] - See Referral Note (4-6 weeks) Disposition Disposition (needs filled in before D/C Order can be placed): Home, Self Care Charges/Coding Visit Charges Inpatient E&M: 94668 Disch Hosp >30min
--- NOTE | 2022-04-16 14:24 | STRESSREP_ITS ---
Stress Test Report Date: 04/16/2022 Procedure: Pharmacologic stress nuclear imaging study Indications: Shortness of breath Consent: Per the patient Procedure: The patient underwent pharmacologic (Regadenoson) evaluation with a peak heart rate of 111 beats per minute (68%predicted maximal heart rate) and a peak blood pressure of 139/105 mmHg. The baseline ECG demonstrated atrial fibrillation with nonspecific ST-T changes. EKG during lexiscan infusion revealed no significant ischemic changes. EKG post infusion revealed no significant ischemic changes [There were no cardiac dysrhythmias pretest, during pharmacologic infusion, or recovery]. [There was no complaint of chest discomfort during pharmacologic infusion or recovery]. The examination was discontinued secondary to completion of protocol. Impression: 1. Lexiscan stress test test is negative for Lexiscan infusion induced EKG changes of ischemia. 2. Lexiscan stress test test is negative for Lexiscan infusion induced chest pain. 3. Results of the nuclear portion of the test is as below Myocardial perfusion imaging study: Technique: The patient was injected with 14.7 millicuries of technetium 99m Cardiolite and subsequently rest SPECT Cardiolite nuclear imaging was obtained in the horizontal long, vertical long, and short axis views. The patient underwent pharmacologic [Regadenoson 0.4mg] evaluation. Please see above for details. The patient was injected with 44.9 millicuries of technetium 99m Cardiolite and subsequently stress SPECT Cardiolite nuclear imaging was obtained in the horizontal long, vertical long, and short axis views. A gated Cardiolite study at peak stress was obtained. Interpretation: Rest and stress SPECT Cardiolite nuclear imaging status post realignment, normalization, and attenuation correction demonstrate severely decreased radioisotope uptake in the apical region on both the rest and stress images. There is no significant reversibility suggestive of significant ischemia. These findings are suggestive of apical myocardial infarction. Gated images reveal global hypokinesis. The reported LVEF is 34%. Impression: 1. There is no evidence of significant ischemia. Possible prior apical myocardial infarction. 2. Estimated ejection fraction is 34%. This note was generated with [employer] software. It may contain incorrect words, spelling, and punctuation that were not noted in checking the note before signing.
== END 2022-04-16 14:42 | disposition home or self-care (01) | DRG 291 ==
LOC: ED 23:16 → ICU 04-14 00:43 → PCU 04-14 19:18
PROVIDERS: Admitting Provider Hospitalist; Emergency Provider Student in an Organized Health Care Education/Training Program; PCP Family Medicine; Visit Provider Internal Medicine
DX: I13.0 Hypertensive heart and chronic kidney disease with heart failure and stage 1 through stage 4 chronic kidney disease, or unspecified chronic kidney disease (principal); I50.23 Acute on chronic systolic (congestive) heart failure; C79.51 Secondary malignant neoplasm of bone; C64.1 Malignant neoplasm of right kidney, except renal pelvis; I48.20 Chronic atrial fibrillation, unspecified; I42.9 Cardiomyopathy, unspecified; D64.9 Anemia, unspecified; J44.9 Chronic obstructive pulmonary disease, unspecified; E78.5 Hyperlipidemia, unspecified; N18.2 Chronic kidney disease, stage 2 (mild); K21.9 Gastro-esophageal reflux disease without esophagitis; G47.33 Obstructive sleep apnea (adult) (pediatric); I35.1 Nonrheumatic aortic (valve) insufficiency; F17.290 Nicotine dependence, other tobacco product, uncomplicated; Z79.01 Long term (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 of 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; R77.8 Other specified abnormalities of plasma proteins; Z90.5 Acquired absence of kidney; R09.02 Hypoxemia
CPT/HCPCS: 36415; 71045; 78452; 80048; 80053; 80061; 83735; 84100; 84484; 85025; 85610; 93005; 93017; 93306; 94660; 94762; 99285; A9500; A4216; J1940; J2785

== ENCOUNTER → 2022-04-13 | Outpatient (CLI) | payer OTHER, SELFPAY ==
--- NOTE | 2022-04-13 12:30 | RAD_ITS ---
STUDY: X-RAY CHEST REASON FOR EXAM: Male, 57 years old. COPD TECHNIQUE: PA and lateral views of the chest. COMPARISON: Comparison is made with prior study dated 2021. FINDINGS: There is a 7.3 cm by 5.2 cm rounded soft tissue mass arising from the anterior lateral aspect of the right fifth or sixth rib. This was seen on prior CT scan of the chest dated 12/07/2021 and is suggestive of a bony metastasis. On the prior CT scan, there is evidence of a right renal mass. There is mild cardiac enlargement. Normal mediastinum and tesha. Normal visualized pulmonary arteries. There is atherosclerotic tortuosity of the aortic arch and descending thoracic aorta. Normal visualized thoracic spine. Normal visualized ribs, clavicles, and shoulders. There is no demonstrated abnormality of the visualized soft tissue structures of the upper abdomen. RAD/Chest PA and Lateral IMPRESSION: The lungs are clear. 7.3 cm by 5.2 cm rounded soft tissue mass arising from the anterior lateral aspect of the right fifth or sixth rib. A metastatic deposit should be ruled out. Electronically Signed: Tom Raymond MD at 13:00 EST ,
[2022-04-13 15:23] LABS: Absolute Lymphocyte Count 0.85 X10^3/uL (0.83-4.51); Basophil# 0.02 X10^3/uL; Basophil% 0.3 % (0-1); Eosinophil# 0.02 X10^3/uL; Eosinophils% 0.3 % (0-5); Hematocrit 42.3 % (40-54); Hemoglobin 13.9 g/dL (13.0-16.5); Lymphocyte # 0.85 X10^3/ul (0.83-4.51); Lymphocyte % 13.3 % (19-41); Mean Corp Hgb Conc 32.9 g/dL (32-36); Mean Corpuscular Volume 97.2 fL (80-94); Mean Platelet Vol. 11.7 fl (6.2-12.0); Monocyte# 0.45 X10^3/uL; NRBC Flagged by Analyzer 1.1 % (0-5); Neutrophil # 5.03 X10^3/uL (2.7-7.7); Neutrophil % 78.6 % (47-70); POSITIVE MORPHOLOGY YES; Platelet Count 222 K/mm3 (150-450); RBC Distribution Width CV 20.5 % (11.6-14.6); RBC Distribution Width SD 71.7 fl (35.1-43.9); Red Blood Count 4.35 M/mm3 (4.6-6.2); White Blood Count 6.4 K/mm3 (4.4-11.0)
[2022-04-13 15:35] LABS: Differential Indicated SCAN CRITERIA MET
[2022-04-13 15:41] LABS: ALB/GLOB Ratio 0.8 RATIO (0.9-2.4); AST(SGOT) 41 U/L (15-37); Alanine Aminotransfer ALT/SGPT 48 U/L (16-61); Albumin, Serum 3.4 g/dL (3.2-5.0); Alkaline Phosphatase 83 U/L (45-117); Anion Gap 8 (5-15); BUN 14 mg/dL (7-18); BUN/Creat Ratio 7.3 RATIO (10-20); Calcium,Total 9.4 mg/dL (8.5-10.1); Chloride 108 mmol/L (98-107); Creatinine, Serum 1.93 mg/dL (0.70-1.30); EST Glomerular Filtration Rate 38 mL/min (>60); Est Glom Filt Rate - Afr Amer 46 mL/min (>60); Glucose 108 mg/dL (74-106); Potassium 3.5 mmol/L (3.5-5.1); Protein, Total 7.4 g/dL (6.4-8.2); Sodium Level 143 mmol/L (136-145); Troponin-I HS 118 pg/mL (3.0-78.0)
[2022-04-13 15:59] LABS: Differential Comment SCANNED
== END | disposition home or self-care (01) ==
PROVIDERS: PCP Family Medicine; Referring Provider Family Medicine; Visit Provider Family Medicine
DX: R06.00 Dyspnea, unspecified (principal); J44.9 Chronic obstructive pulmonary disease, unspecified
CPT/HCPCS: 36415; 71046; 80053; 83880; 84484; 85025

== ENCOUNTER 2022-05-18 14:58 | Inpatient (IN) | payer OTHER, SELFPAY ==
[2022-05-18] VITALS (10 sets, daily range): BP systolic 134–146; BP diastolic 87–113; PULSE 63–97; RESP 16–36; TEMP 36.4–37.1; O2SAT 91–100; BMI 38.6; BMI 38.5
--- NOTE | 2022-05-18 15:58 | EKG12_ITS ---
Test Reason : SOB/PALP Blood Pressure : / mmHG Vent. Rate : 091 BPM Atrial Rate : 000 BPM P-R Int : 000 ms QRS Dur : 088 ms QT Int : 354 ms P-R-T Axes : 000 079 032 degrees QTc Int : 435 ms Atrial fibrillation Nonspecific ST-Segment Abnormality Abnormal ECG Confirmed by DONAVAN CLEMENT, CASH ([id number]), general expeditor LISA ADAM ([id number]) on 05/20/2022 9:50:52 AM Referred By: JESSICA/NUBIA Confirmed By:CASH GO MD
[2022-05-18 16:10] LABS: Absolute Lymphocyte Count 0.87 X10^3/uL (0.83-4.51); Absolute Neutrophil Count 5.3 X10^3/uL (2.0-7.7); Basophil# 0.03 X10^3/uL; Basophil% 0.5 % (0-1); Eosinophil# 0.01 X10^3/uL; Eosinophils% 0.2 % (0-5); Hematocrit 44.2 % (40-54); Hemoglobin 14.6 g/dL (13.0-16.5); Lymphocyte # 0.87 X10^3/ul (0.83-4.51); Lymphocyte % 13.3 % (19-41); Mean Corpuscular Hgb 33.7 pg (27.0-32.0); Mean Corpuscular Volume 102.1 fL (80-94); Mean Platelet Vol. 10.3 fl (6.2-12.0); Monocyte# 0.32 X10^3/uL; Monocyte% 4.9 % (0-10); NRBC Flagged by Analyzer 0.6 % (0-5); Neutrophil % 80.8 % (47-70); POSITIVE MORPHOLOGY YES; Platelet Count 183 K/mm3 (150-450); RBC Distribution Width CV 19.4 % (11.6-14.6); RBC Distribution Width SD 74.1 fl (35.1-43.9); Red Blood Count 4.33 M/mm3 (4.6-6.2); White Blood Count 6.6 K/mm3 (4.4-11.0)
--- NOTE | 2022-05-18 16:12 | RAD_ITS ---
STUDY: X-RAY CHEST REASON FOR EXAM: Male, 57 years old. sob TECHNIQUE: AP portable COMPARISON: April 13, 2022. FINDINGS: Mild left perihilar and right lower lobar reticulonodular interstitial thickening and. 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 Heart is enlarged. Normal mediastinum and tesha. Normal visualized pulmonary arteries. Normal visualized aortic arch and descending thoracic aorta. Normal visualized thoracic spine. Normal visualized clavicles, and shoulders. There is no demonstrated abnormality of the visualized soft tissue structures of the upper abdomen. RAD/Chest 1 View (Portable) IMPRESSION: Left perihilar and right lower lobe reticular nodule interstitial thickening from inflammatory or early interstitial pulmonary edema. Electronically Signed: Malachi Stephens MD at 16:45 EDT ,
[2022-05-18 16:15] LABS: Differential Indicated SCAN CRITERIA MET
--- NOTE | 2022-05-18 16:16 | EX.ED.DYSGE1 ---
HPI History of Present Illness Chief Complaint: Shortness of Breath Informant: patient Onset/Context/Timing Onset: Weeks Context: Gradual Onset Narrative Narrative: Patient presents after increasing shortness of breath over the past week with a 15 pound weight gain. He has a history of A-fib and CHF. He has mild cough but no fever. He states he was hospitalized about a month ago secondary to congestive heart failure. There was some confusion about which diuretic use was to be taking at discharge. PFSH PFSH Medical History Atrial fibrillation Cancer Chest pain Congestive heart failure (CHF) COPD (chronic obstructive pulmonary disease) CPAP (continuous positive airway pressure) dependence Elevated serum creatinine Elevated troponin I level GERD (gastroesophageal reflux disease) Hypertension Irregular heart beat Sleep apnea Smoker Home Medications albuterol 90 mcg/actuation aerosol inhaler 90 mcg inhalation Q4H PRN PRN breathing 12/07/21 [History Last Taken Unknown] cabozantinib 20 mg tablet 20 mg PO DAILY 12/07/21 [History Last Taken Unknown] carvedilol 6.25 mg tablet 12.5 mg PO DAILY 12/07/21 [History Last Taken Unknown] cyclobenzaprine 10 mg tablet 10 mg PO TID PRN Spasms 12/07/21 [History Last Taken Unknown] ferrous sulfate 325 mg (65 mg iron) tablet 325 mg PO BID 12/07/21 [History Last Taken Unknown] pantoprazole 40 mg tablet,delayed release 40 mg PO DAILY PRN gerd 12/07/21 [History Last Taken Unknown] rosuvastatin 40 mg tablet 40 mg PO DAILY 12/07/21 [History Last Taken Unknown] warfarin 10 mg tablet 7 mg PO DAILY Check with primary doctor 12/07/21 [History Last Taken Unknown] losartan 50 mg tablet 50 mg PO DAILY #60 tabs 12/09/21 [Rx Last Taken Unknown] bumetanide 2 mg tablet 2 mg PO BIDLX #60 tabs 04/16/22 [Rx Last Taken Unknown] Allergy/AdvReac Type Severity Reaction Status Date / Time aspirin [ASA] Allergy Other Verified 05/18/22 15:01 mushroom [mushrooms] Allergy Hives Verified 05/18/22 15:01 Penicillins Allergy PT UNSURE Verified 05/18/22 15:01 OF REACTION shellfish derived Allergy Hives Verified 05/18/22 15:01 Family History Other Cancer Heart disease Surgical History History of nephrectomy, right Social History Smoking Status: Light Smoker (<10/day) ROS ROS ED Constitutional Constitutional ED: Denies chills or fever(s) Eyes Eyes: Denies change in vision or discharge from eye(s) ENT ENT ED: Denies discharge from eye(s), rhinorrhea or sore throat Cardiovascular Cardiovascular: Denies chest pain or palpitations Respiratory/Chest Respiratory/Chest: Reports cough and dyspnea Gastrointestinal Gastrointestinal: Denies abdominal pain, diarrhea, nausea or vomiting Genitourinary Genitourinary ED: Denies dysuria Musculoskeletal Musculoskeletal: Denies back pain or extremity pain Integumentary Denies Abrasions or rash Neurologic Neurologic: Reports headache(s); Denies weakness Psychiatric Psychiatric: Denies anxiety or depression Allergic/Immunologic Allergic/Immunologic ED: Denies lip swelling or urticaria EXAM Physical Exam Const Vital Signs: 05/18/22 14:59 05/18/22 15:35 05/18/22 15:48 Temperature 98 F Temperature Source Temporal Pulse Rate 91 91 Respiratory Rate 16 18 Respiratory Effort Short of Breath Respiratory Depth Normal Respiratory Pattern Tachypnea Blood Pressure 141/113 H 134/108 H Blood Pressure Mean 122 116 Pulse Ox 98 97 Oxygen Delivery Method Room Air Room Air Nasal Cannula Positive well nourished and well developed General Appearance ED: well developed HEENT Reports normocephalic and head/scalp atraumatic Eyes PERRL and EOMs intact bilaterally Neck supple Chest Wall inspection of chest normal and palpation of chest normal Resp normal respiratory effort Resp Narrative: Diminished breath sounds bilateral bases. Cardio Rhythm: abnormal rhythm irregularly irregular GI normal to inspection, nondistended, normoactive bowel sounds Palpation: soft Extremity normal to inspection Neuro oriented x3 and no sensory deficits noted Sensorium / Orientation: alert Motor Exam: strength 5/5 throughout Psych mental status grossly normal Skin no rashes or lesions noted MDM MDM MDM Narrative Medical decision making narrative: Patient placed on monitoring and evaluation advisor to evaluate for arrhythmia. Chest x-ray obtained to evaluate for fluid overload, cardiac silhouette size, acute lung pathology. Lab work obtained to evaluate for leukocytosis, anemia, electrolyte derangement. INR obtained given he is on Coumadin. Troponin and BNP obtained to evaluate for cardiac ischemia and congestive heart failure respectively. History & Record Review Discussion w/independent historian: Patient Additional record(s) reviewed:: Prior inpatient record Lab Data Attestation: I reviewed the patient's lab results. Labs: Laboratory Results - last 24 hr 05/18/22 05/18/22 05/18/22 15:50 15:50 15:50 WBC 6.6 RBC 4.33 L Hgb 14.6 Hct 44.2 MCV 102.1 H MCH 33.7 H MCHC 33.0 RDW Std Deviation 74.1 H RDW Coeff of Lizzie 19.4 H Plt Count 183 MPV 10.3 Immature Gran % (Auto) 0.300 Neut % (Auto) 80.8 H Lymph % (Auto) 13.3 L [place] % (Auto) 4.9 Eos % (Auto) 0.2 Baso % (Auto) 0.5 Absolute Neuts (auto) 5.3 Absolute Lymphs (auto) 0.87 Nucleated RBC % 0.6 PT 28.9 H INR 2.8 Sodium 143 Potassium 3.8 Chloride 105 Carbon Dioxide 31.0 Anion Gap 7 BUN 18 Creatinine 1.57 H Estim Creat Clear Calc 54.62 Est GFR (MDRD) Af Amer 59 L Est GFR (MDRD) Non-Af 48 L BUN/Creatinine Ratio 11.5 Glucose 124 H Calcium 9.2 Troponin I High Sens 73 B-Natriuretic Peptide 05/18/22 15:50 WBC RBC Hgb Hct MCV MCH MCHC RDW Std Deviation RDW Coeff of Lizzie Plt Count MPV Immature Gran % (Auto) Neut % (Auto) Lymph % (Auto) [place] % (Auto) Eos % (Auto) Baso % (Auto) Absolute Neuts (auto) Absolute Lymphs (auto) Nucleated RBC % PT INR Sodium Potassium Chloride Carbon Dioxide Anion Gap BUN Creatinine Estim Creat Clear Calc Est GFR (MDRD) Af Amer Est GFR (MDRD) Non-Af BUN/Creatinine Ratio Glucose Calcium Troponin I High Sens B-Natriuretic Peptide 343.5 H Radiography Chest X-Ray - ED: 1 View, Read by ED Physician and Chronic Changes (Chronic changes with mild increased lung markings.) Diagnostic Testing: Clinical Impression(s) from Imaging Studies Chest X-Ray 05/18/22 16:12 IMPRESSION: Left perihilar and right lower lobe reticular nodule interstitial thickening from inflammatory or early interstitial pulmonary edema. Electronically Signed: Malachi Stephens MD at 16:45 EDT , EKG Initial EKG: Attestation: I personally reviewed and interpreted this EKG as follows: Interpretation: Atrial Fibrillation (A-fib at 91 with no acute ischemia.) Differential Diagnosis Chest pain/SOB: ACS ACS: Positive for EKG without ischemia and history not suggestive of ischemia pain and pneumothorax Reason(s) pneumothorax less likely: Positive for bilateral breath sounds and [employer] withhout PTX Management Discussion w/another healthcare provider: Hospitalist Treatment and Re-Evaluation :: CBC was normal white count at 6.6. Chemistry studies significant for creatinine 1.57. This appears consistent with his baseline. His INR is therapeutic at 2.8. Troponin is 73 which is actually improved when compared to his prior values. I did review his recent hospitalization with elevated troponins and stress test. BNP is elevated at 343. Chest x-ray is consistent with mild fluid overload with increased lung markings. Patient does have significant conversational dyspnea. I will give him 40 mg of IV Lasix and discussed with hospitalist for admission. Discharge Plan Triage Chief Complaint: Shortness of Breath ED Provider: Kassy Banda Dx/Rx/DC Orders Clinical Impression: Dyspnea, CHF (congestive heart failure) Prescriptions: No Action cyclobenzaprine 10 mg Tablet 10 mg PO TID PRN (Reason: Spasms) carvedilol 6.25 mg tablet 12.5 mg PO DAILY pantoprazole 40 mg Tablet,Delayed Release (Dr/Ec) 40 mg PO DAILY PRN (Reason: gerd) ferrous sulfate 325 mg (65 mg iron) Tablet 325 mg PO BID albuterol 90 mcg/actuation Aerosol 90 mcg INHALATION Q4H PRN PRN (Reason: breathing) rosuvastatin 40 mg Tablet 40 mg PO DAILY cabozantinib 20 mg Tablet 20 mg PO DAILY warfarin 10 mg Tablet 7 mg PO DAILY losartan 50 mg tablet 50 mg PO DAILY Qty: 60 0RF bumetanide 2 mg Tablet 2 mg PO BIDLX Qty: 60 1RF Primary Care Provider: Jose Ramon Turner Referrals: Jose Ramon Turner MD [Primary Care Provider] - Disposition Disposition: Acute Care Hospital [facility]
[2022-05-18 16:22] LABS: BNP,B-Type NATRIURETIC PEPTIDE 343.5 pg/mL (0-100)
[2022-05-18 16:23] LABS: International Normalized Ratio 2.8; Prothrombin Time (Protime)PT. 28.9 SECONDS (11.7-14.9)
[2022-05-18 16:27] LABS: Anion Gap 7 (5-15); BUN 18 mg/dL (7-18); BUN/Creat Ratio 11.5 RATIO (10-20); Calcium,Total 9.2 mg/dL (8.5-10.1); Chloride 105 mmol/L (98-107); Creatinine, Serum 1.57 mg/dL (0.70-1.30); EST Glomerular Filtration Rate 48 mL/min (>60); Est Glom Filt Rate - Afr Amer 59 mL/min (>60); Estimated Creatinine Clearance 54.62 ml/min; Glucose 124 mg/dL (74-106); Potassium 3.8 mmol/L (3.5-5.1); Sodium Level 143 mmol/L (136-145); Troponin-I HS 73 pg/mL (3.0-78.0)
[2022-05-18 17:10] LABS: Anisocytosis 2+; Platelet Estimate SLT DEC (ADEQ)
[2022-05-18 17:11] LABS: Ovalocyte 1+
[2022-05-18] MEDS: Furosemide 40 MG/4 ML Vial IV (17:13)
--- NOTE | 2022-05-18 18:23 | PCM.HP.STD ---
HPI - General General Date of Admission: 05/18/22 Date of Service: 05/18/22 Chief Complaint: SOB, weight gain HPI Narrative YEFRI YANEZ, is a 57 M with a history of congestive heart failure, hypertension, NIMCO, renal cancer status post unilateral nephrectomy in March, A-fib on Coumadin presented to [facility] 05/18/2022 with increasing weight and shortness of breath. In the ED had a hemoglobin of 14.6, white blood cell count of 6.6, platelets 183, INR 2.8, BUN 18 with creatinine of 1.57 which is lower than recent draws INR of 2.8 chronically on Coumadin,, troponin 73, BNP 343 and chest x-ray suggestive of possible early interstitial edema. He was given 40 of IV Lasix and hospitalist consulted for admission for acute exacerbation of heart failure. Patient seen at bedside and reports increasing shortness of breath for the past 1 week and a dry cough but has had significant worsening over the past 1 to 2 days. There is confusion over compliance with his water pills in the past 24 to 48 hours with inconsistent story. Denies peripheral edema but reports worsening shortness of breath at rest and on exertion. Additionally reports last week he weighed 250 pounds which is his baseline and now he is 270 pounds. Denies any chest pain, does have occasional headaches but reports compliance with the CPAP. Did not endorse other complaints today. PFSH Medical History Atrial fibrillation Cancer Chest pain Congestive heart failure (CHF) COPD (chronic obstructive pulmonary disease) CPAP (continuous positive airway pressure) dependence Elevated serum creatinine Elevated troponin I level GERD (gastroesophageal reflux disease) Hypertension Irregular heart beat Sleep apnea Smoker Home Medications albuterol 90 mcg/actuation aerosol inhaler 90 mcg inhalation Q4H PRN PRN breathing 12/07/21 [History Last Taken Unknown] cabozantinib 20 mg tablet 20 mg PO DAILY 12/07/21 [History Last Taken Unknown] carvedilol 6.25 mg tablet 12.5 mg PO DAILY 12/07/21 [History Last Taken Unknown] cyclobenzaprine 10 mg tablet 10 mg PO TID PRN Spasms 12/07/21 [History Last Taken Unknown] ferrous sulfate 325 mg (65 mg iron) tablet 325 mg PO BID 12/07/21 [History Last Taken Unknown] pantoprazole 40 mg tablet,delayed release 40 mg PO DAILY PRN gerd 12/07/21 [History Last Taken Unknown] rosuvastatin 40 mg tablet 40 mg PO DAILY 12/07/21 [History Last Taken Unknown] warfarin 10 mg tablet 7 mg PO DAILY Check with primary doctor 12/07/21 [History Last Taken Unknown] losartan 50 mg tablet 50 mg PO DAILY #60 tabs 12/09/21 [Rx Last Taken Unknown] bumetanide 2 mg tablet 2 mg PO BIDLX #60 tabs 04/16/22 [Rx Last Taken Unknown] Allergy/AdvReac Type Severity Reaction Status Date / Time aspirin [ASA] Allergy Other Verified 05/18/22 15:01 mushroom [mushrooms] Allergy Hives Verified 05/18/22 15:01 Penicillins Allergy PT UNSURE Verified 05/18/22 15:01 OF REACTION shellfish derived Allergy Hives Verified 05/18/22 15:01 Family History Other Cancer Heart disease Surgical History History of nephrectomy, right Social History Smoking Status: Light Smoker (<10/day) ROS ROS Narrative General: Denies fever or chills, has been gaining weight HENT: Does get headaches at times, denies stuffy nose, denies sore throat EYES: Denies changes in vision Resp: Dry cough, increasing shortness of breath Cardiac: Denies chest pain GI: Denies abdominal pain, denies changes in bowel, denies nausea, denies vomiting : Denies changes in urination Extremity: Denies swelling MSK: Denies weakness Neuro: Denies any numbness, denies tingling Heme: Denies any bleeding or bruising Skin: Denies rashes Psychiatric: No complaints voiced Vital Signs Vital Signs Vital Signs: 05/18/22 14:59 05/18/22 15:35 05/18/22 15:48 Temperature 98 F Temperature Source Temporal Pulse Rate 91 91 Respiratory Rate 16 18 Respiratory Effort Short of Breath Respiratory Depth Normal Respiratory Pattern Tachypnea Blood Pressure 141/113 H 134/108 H Blood Pressure Mean 122 116 Pulse Ox 98 97 Oxygen Delivery Method Room Air Room Air Nasal Cannula 05/18/22 17:15 Temperature Temperature Source Pulse Rate 94 Respiratory Rate 32 H Respiratory Effort Respiratory Depth Respiratory Pattern Blood Pressure Blood Pressure Mean Pulse Ox 91 Oxygen Delivery Method Room Air Weight Weight: 125.673 kg Body Mass Index (BMI) 38.6 Physical Exam Narrative General: Alert, oriented, no apparent distress HEENT: Atraumatic, normocephalic Eyes: Anicteric, normal conjunctiva, extraocular movements grossly intact Neck: Supple Respiratory: Increased respiratory effort, diminished at the bases Cardiovascular: Regular rate and rhythm GI: Soft, nontender, nondistended Extremities: No pitting edema Musculoskeletal: Moving all extremities Neuro: No overt focal neurological deficits Skin: No rashes appreciated Psych: Cooperative Results Lab / Micro Data Result Diagrams: 05/18/22 15:50 05/18/22 15:50 Labs: Laboratory Results - last 24 hr 05/18/22 15:50: WBC 6.6, RBC 4.33 L, Hgb 14.6, Hct 44.2, MCV 102.1 H, MCH 33.7 H, MCHC 33.0, RDW Std Deviation 74.1 H, RDW Coeff of Lizzie 19.4 H, Plt Count 183, MPV 10.3, Immature Gran % (Auto) 0.300, Neut % (Auto) 80.8 H, Lymph % (Auto) 13.3 L, [place] % (Auto) 4.9, Eos % (Auto) 0.2, Baso % (Auto) 0.5, Absolute Neuts (auto) 5.3, Absolute Lymphs (auto) 0.87, Nucleated RBC % 0.6, Platelet Estimate SLT DEC, Anisocytosis 2+, Ovalocytes 1+ 05/18/22 15:50: PT 28.9 H, INR 2.8 05/18/22 15:50: Sodium 143, Potassium 3.8, Chloride 105, Carbon Dioxide 31.0, Anion Gap 7, BUN 18, Creatinine 1.57 H, Estim Creat Clear Calc 54.62, Est GFR (MDRD) Af Amer 59 L, Est GFR (MDRD) Non-Af 48 L, BUN/Creatinine Ratio 11.5, Glucose 124 H, Calcium 9.2, Troponin I High Sens 73 05/18/22 15:50: B-Natriuretic Peptide 343.5 H Radiology Impression Chest X-Ray 05/18/22 16:12 IMPRESSION: Left perihilar and right lower lobe reticular nodule interstitial thickening from inflammatory or early interstitial pulmonary edema. Electronically Signed: Malachi Stephens MD at 16:45 EDT , Assessment & Plan Assessment/Plan (1) CHF (congestive heart failure): (2) Hypertension: PLAN: Plan #Acute exacerbation of chronic congestive heart failure/heart failure with reduced ejection fraction -Reports he is up 30 pounds in 1 week -Troponin 73, BNP 343 with chest x-ray with left perihilar and right lower lobe reticular nodular interstitial thickening from inflammatory or early interstitial pulmonary edema -History and exam consistent with heart failure exacerbation possibly in part due to confusion with his diuretic doses -We will give 40 of IV Lasix twice daily -Daily weights -I's and O's -Fluid restriction -Had echo 04/14/2022 which demonstrated moderate concentric left ventricular hypertrophy, EF of 40%, mild to moderate global hypokinesis of the left ventricle, given echo roughly 1 month ago did not order repeat -Has had some dry cough as well, will send COVID and flu #Atrial fibrillation -INR therapeutic at 2.8 -EKG demonstrated atrial fibrillation with a rate of 91 -Is chronically on Coumadin, will check daily INRs -Continue carvedilol -Coumadin dosing listed on home med list, 7 mg daily, continue #NIMCO -We will place on BiPAP at bedtime #Renal cell carcinoma status post unilateral nephrectomy in March and CKD stage IIIb -No present VIMAL, monitor daily -Is to change oncologist and follow-up with Dr. Botello -Cabozantinib continued -Home losartan continued #DVT ppx: Coumadin therapeutic Alicia Dukes MD Time spent in the patient's overall evaluation,decision-making process, review of diagnostic data, adjustment of management, discussion with other providers, nursing nursing and ancillary staff involved in patient's care documentation, 60 minutes Charges/Coding Visit Charges Inpatient E&M: 45534 Init Hosp L2
[2022-05-18] MEDS: Albuterol 2.5 MG/3 ML VIAL.NEB. INHALATION ×2 (20:16→23:45)
[2022-05-18] MEDS: Carvedilol 6.25 MG Tablet PO (23:48)
[2022-05-18] MEDS: Atorvastatin Calcium 80 MG Tablet PO (23:48)
[2022-05-19] VITALS (8 sets, daily range): BP systolic 111–152; BP diastolic 87–134; PULSE 59–102; RESP 16–24; TEMP 36.6–36.8; O2SAT 94–100; BMI 38.1
[2022-05-19 06:06] LABS: Absolute Lymphocyte Count 0.92 X10^3/uL (0.83-4.51); Basophil# 0.01 X10^3/uL; Basophil% 0.2 % (0-1); Eosinophil# 0.03 X10^3/uL; Eosinophils% 0.5 % (0-5); Hematocrit 41.1 % (40-54); Hemoglobin 13.5 g/dL (13.0-16.5); Lymphocyte # 0.92 X10^3/ul (0.83-4.51); Lymphocyte % 14.8 % (19-41); Mean Corp Hgb Conc 32.8 g/dL (32-36); Mean Corpuscular Hgb 34.2 pg (27.0-32.0); Mean Corpuscular Volume 104.1 fL (80-94); Monocyte# 0.25 X10^3/uL; NRBC Flagged by Analyzer 0.6 % (0-5); Neutrophil % 80.2 % (47-70); POSITIVE MORPHOLOGY YES; Platelet Count 173 K/mm3 (150-450); RBC Distribution Width CV 19.1 % (11.6-14.6); RBC Distribution Width SD 74.2 fl (35.1-43.9); Red Blood Count 3.95 M/mm3 (4.6-6.2); White Blood Count 6.2 K/mm3 (4.4-11.0)
[2022-05-19 06:16] LABS: Differential Indicated SCAN CRITERIA MET
[2022-05-19 06:19] LABS: International Normalized Ratio 3.1; Prothrombin Time (Protime)PT. 31.6 SECONDS (11.7-14.9)
[2022-05-19 06:38] LABS: ALB/GLOB Ratio 0.9 RATIO (0.9-2.4); AST(SGOT) 38 U/L (15-37); Alanine Aminotransfer ALT/SGPT 61 U/L (16-61); Alkaline Phosphatase 64 U/L (45-117); Anion Gap 8 (5-15); BUN 18 mg/dL (7-18); BUN/Creat Ratio 11.3 RATIO (10-20); Calcium,Total 8.5 mg/dL (8.5-10.1); Chloride 106 mmol/L (98-107); Creatinine, Serum 1.59 mg/dL (0.70-1.30); EST Glomerular Filtration Rate 48 mL/min (>60); Est Glom Filt Rate - Afr Amer 58 mL/min (>60); Estimated Creatinine Clearance 53.94 ml/min; Globulin 3.4 g/dL (2.2-4.2); Glucose 149 mg/dL (74-106); Magnesium 2.1 mg/dL (1.6-2.6); Potassium 3.4 mmol/L (3.5-5.1); Protein, Total 6.4 g/dL (6.4-8.2); Sodium Level 143 mmol/L (136-145); Thyroid Stim Hormone (TSH) 1.31 uIU/mL (0.358-3.74)
[2022-05-19 06:58] LABS: Anisocytosis 2+; Differential Comment SCANNED; Macrocytosis 1+; Ovalocyte RARE; Polychromasia RARE
--- NOTE | 2022-05-19 08:08 | PCM.PN.HOSP ---
Reason for Visit Reason for Visit: Diagnoses Essential (primary) hypertension (05/18/22) Heart failure, unspecified (05/18/22) Subjective Subjective Breathing better. Had been on Bumex and was taking it, but still put on 15#. Also having issue getting aerosols as they were on backorder. Objective Data Objective Data Vital Signs: Vital Signs Temp Pulse Resp BP Pulse Ox O2 Del Method FiO2 36.8 C 86 24 H 111/87 H 99 Bi-pap 30 05/19/22 03:47 05/19/22 04:51 05/19/22 04:51 05/19/22 03:47 05/19/22 04:51 05/19/22 03:47 05/19/22 04:51 Oxygen Delivery Method Bi-pap Weight: 124.1 kg Body Mass Index (BMI) 38.1 Intake & Output: Intake and Output for Last 24 Hours 05/17/22 05/18/22 05/19/22 23:59 23:59 23:59 Intake Total 240 / 240 Output Total 850 / 850 Balance -610 / -610 Lab / Micro Data Result Diagrams: 05/19/22 05:43 05/19/22 05:43 Labs: Laboratory Results - last 24 hr 05/18/22 15:50: WBC 6.6, RBC 4.33 L, Hgb 14.6, Hct 44.2, MCV 102.1 H, MCH 33.7 H, MCHC 33.0, RDW Std Deviation 74.1 H, RDW Coeff of Lizzie 19.4 H, Plt Count 183, MPV 10.3, Immature Gran % (Auto) 0.300, Neut % (Auto) 80.8 H, Lymph % (Auto) 13.3 L, [place] % (Auto) 4.9, Eos % (Auto) 0.2, Baso % (Auto) 0.5, Absolute Neuts (auto) 5.3, Absolute Lymphs (auto) 0.87, Nucleated RBC % 0.6, Platelet Estimate SLT DEC, Anisocytosis 2+, Ovalocytes 1+ 05/18/22 15:50: PT 28.9 H, INR 2.8 05/18/22 15:50: Sodium 143, Potassium 3.8, Chloride 105, Carbon Dioxide 31.0, Anion Gap 7, BUN 18, Creatinine 1.57 H, Estim Creat Clear Calc 54.62, Est GFR (MDRD) Af Amer 59 L, Est GFR (MDRD) Non-Af 48 L, BUN/Creatinine Ratio 11.5, Glucose 124 H, Calcium 9.2, Troponin I High Sens 73 05/18/22 15:50: B-Natriuretic Peptide 343.5 H 05/18/22 20:05: COVID-19 ([place]) Not Detected 05/19/22 05:43: WBC 6.2, RBC 3.95 L, Hgb 13.5, Hct 41.1, MCV 104.1 H, MCH 34.2 H, MCHC 32.8, RDW Std Deviation 74.2 H, RDW Coeff of Lizzie 19.1 H, Plt Count 173, MPV 10.0, Immature Gran % (Auto) 0.300, Neut % (Auto) 80.2 H, Lymph % (Auto) 14.8 L, [place] % (Auto) 4.0, Eos % (Auto) 0.5, Baso % (Auto) 0.2, Absolute Neuts (auto) 5.0, Absolute Lymphs (auto) 0.92, Nucleated RBC % 0.6, Differential Comment SCANNED, Polychromasia RARE, Anisocytosis 2+, Macrocytosis 1+, Ovalocytes RARE 05/19/22 05:43: PT 31.6 H, INR 3.1 05/19/22 05:43: Sodium 143, Potassium 3.4 L, Chloride 106, Carbon Dioxide 29.0, Anion Gap 8, BUN 18, Creatinine 1.59 H, Estim Creat Clear Calc 53.94, Est GFR (MDRD) Af Amer 58 L, Est GFR (MDRD) Non-Af 48 L, BUN/Creatinine Ratio 11.3, Glucose 149 H, Calcium 8.5, Magnesium 2.1, Total Bilirubin 0.70, AST 38 H, ALT 61, Alkaline Phosphatase 64, Total Protein 6.4, Albumin 3.0 L, Globulin 3.4, Albumin/Globulin Ratio 0.9, TSH 1.31 Micro: Microbiology 05/18/22 20:05 Mucosa - Nasopharyngeal Respiratory Panel (PCR) - Final Radiography Diagnostic Testing: Radiology Impression Chest X-Ray 05/18/22 16:12 IMPRESSION: Left perihilar and right lower lobe reticular nodule interstitial thickening from inflammatory or early interstitial pulmonary edema. Electronically Signed: Malachi Stephens MD at 16:45 EDT , Physical Exam Const alert and no apparent distress Constitutional Narrative: on room air. no respiratory distress. no conversational dyspnea. Resp normal respiratory effort, no retractions, no use of accessory muscles and clear to auscultation bilaterally Cardio regular rate, regular rhythm, S1 normal heart sound and S2 normal heart sound GI normal to inspection, nondistended, normoactive bowel sounds and soft to palpation Assessment & Plan Assessment/Plan (1) CHF (congestive heart failure): QUALIFIERS: Heart failure chronicity: acute PLAN: Acute exacerbation of chronic congestive heart failure/heart failure with reduced ejection fraction -Reports he is up 15 pounds in 1 week -Troponin 73, BNP 343 with chest x-ray with left perihilar and right lower lobe reticular nodular interstitial thickening from inflammatory or early interstitial pulmonary edema -We will give 40 of IV Lasix twice daily -Daily weights -I's and O's -Fluid restriction -Had echo 04/14/2022 which demonstrated moderate concentric left ventricular hypertrophy, EF of 40%, mild to moderate global hypokinesis of the left ventricle, given echo roughly 1 month ago did not order repeat Continue carvedilol and losartan PLAN: Plan Chronic conditions: Atrial fibrillation-INR therapeutic at 2.8-EKG demonstrated atrial fibrillation with a rate of 91-Is chronically on Coumadin, will check daily INRs-Continue carvedilol-Coumadin dosing listed on home med list, 7 mg daily, continue NIMCO-We will place on BiPAP at bedtime Renal cell carcinoma status post unilateral nephrectomy in March and CKD stage IIIb-No present VIMAL, monitor daily-Is to change oncologist and follow-up with Dr. Botello-Leonardaozantinib continued-Home losartan continued DVT ppx: Coumadin therapeutic Charges/Coding Visit Charges Inpatient E&M: 23223 Subs Hosp L2
[2022-05-19] MEDS: Losartan Potassium 50 MG Tablet PO (09:55)
[2022-05-19] MEDS: Ferrous Sulfate 325 MG Tablet PO ×2 (09:55→17:06)
[2022-05-19] MEDS: Carvedilol 6.25 MG Tablet PO ×2 (09:55→22:14)
[2022-05-19] MEDS: Furosemide 40 MG/4 ML Vial IV ×2 (09:56→17:06)
[2022-05-19] MEDS: 0.9% Saline Lock 10 ML Syringe IV ×2 (09:56→17:06)
[2022-05-19] MEDS: Albuterol 2.5 MG/3 ML VIAL.NEB. INHALATION ×2 (11:16→22:22)
--- NOTE | 2022-05-19 11:30 | CASEMGMT ---
RN MYA Face to Face with patient for initial transition planning/care coordination assessment. RN CM introduced self and role at [facility]. Patient lying in bed, alert and oriented. Patient willing to participate in assessment and is able to answer all questions appropriately. Care providers, pharmacy, and demographics verified. Patient wishes to discharge home, denies need for home health at this time. Patient states he has no further needs or concerns at this time. CM to follow for discharge planning needs that may arise. PCP: Johnny Specialists: Jimenez, pencil maker; Ayan, oncologist Preferred Pharmacy:[facility] Insurance: MMO Prescription Benefit: yes Living Will/HPOA: yes, Tyshawn Vega LNOK: Living Arrangements: Patient lives with in a single story home with no steps to enter. Patient states he is independent at home. Transportation: self, DME/HHC: Patient has cpap and nebulizer at home. No previous HHC. Will monitor for home oxygen at discharge. Disposition Plan: Patient to discharge home with family support and follow-up plans in place. Rakel BE, RN, CM
[2022-05-19] MEDS: Potassium Chloride Oral Tablet 20 MEQ 40 MEQ PO (14:11)
[2022-05-19] MEDS: MELATONIN 3 MG TABLET PO (22:13)
[2022-05-19] MEDS: Atorvastatin Calcium 80 MG Tablet PO (22:14)
[2022-05-20 02:30] VITALS: BP 115/76; PULSE 87; RESP 19; TEMP 36.8; O2SAT 99
[2022-05-20 03:23] VITALS: O2SAT 99
[2022-05-20 04:08] VITALS: BMI 37.9
[2022-05-20 05:29] LABS: International Normalized Ratio 2.7; Prothrombin Time (Protime)PT. 28.3 SECONDS (11.7-14.9)
[2022-05-20 05:48] LABS: Anion Gap 7 (5-15); BUN 21 mg/dL (7-18); BUN/Creat Ratio 11.8 RATIO (10-20); Calcium,Total 8.8 mg/dL (8.5-10.1); Chloride 103 mmol/L (98-107); Creatinine, Serum 1.78 mg/dL (0.70-1.30); EST Glomerular Filtration Rate 42 mL/min (>60); Est Glom Filt Rate - Afr Amer 51 mL/min (>60); Estimated Creatinine Clearance 48.18 ml/min; Glucose 170 mg/dL (74-106); Potassium 3.3 mmol/L (3.5-5.1); Sodium Level 140 mmol/L (136-145)
[2022-05-20 07:38] VITALS: PULSE 85; RESP 22; O2SAT 100
--- NOTE | 2022-05-20 08:31 | PN.HOSP_ITS ---
Reason for Visit Reason for Visit: Diagnoses Essential (primary) hypertension (05/18/22) Heart failure, unspecified (05/18/22) Objective Data Objective Data Vital Signs: Vital Signs Temp Pulse Resp BP Pulse Ox O2 Del Method FiO2 36.8 C 87 19 H 115/76 99 Bi-pap 30 05/20/22 02:30 05/20/22 02:30 05/20/22 02:30 05/20/22 02:30 05/20/22 03:23 05/20/22 02:30 05/20/22 03:23 Oxygen Delivery Method Bi-pap Weight: 123.4 kg Body Mass Index (BMI) 37.9 Intake & Output: Intake and Output for Last 24 Hours 05/18/22 05/19/22 05/20/22 23:59 23:59 23:59 Intake Total 240 / 240 480 / 480 Output Total 850 / 850 Balance -610 / -610 480 / 480 Lab / Micro Data Result Diagrams: 05/19/22 05:43 05/20/22 05:08 Labs: Laboratory Results - last 24 hr 05/20/22 05:08: PT 28.3 H, INR 2.7 05/20/22 05:08: Sodium 140, Potassium 3.3 L, Chloride 103, Carbon Dioxide 30.0, Anion Gap 7, BUN 21 H, Creatinine 1.78 H, Estim Creat Clear Calc 48.18, Est GFR (MDRD) Af Amer 51 L, Est GFR (MDRD) Non-Af 42 L, BUN/Creatinine Ratio 11.8, Glucose 170 H, Calcium 8.8 Micro: Microbiology 05/18/22 20:05 Mucosa - Nasopharyngeal Respiratory Panel (PCR) - Final Assessment & Plan Assessment/Plan (1) CHF (congestive heart failure): QUALIFIERS: Heart failure chronicity: acute PLAN: Acute exacerbation of chronic congestive heart failure/heart failure with reduced ejection fraction -Reports he is up 15 pounds in 1 week -Troponin 73, BNP 343 with chest x-ray with left perihilar and right lower lobe reticular nodular interstitial thickening from inflammatory or early interstitial pulmonary edema -We will give 40 of IV Lasix twice daily -Daily weights -I's and O's -Fluid restriction -Had echo 04/14/2022 which demonstrated moderate concentric left ventricular hypertrophy, EF of 40%, mild to moderate global hypokinesis of the left ventricle, given echo roughly 1 month ago did not order repeat Continue carvedilol and losartan Resume Bumex 2 mg twice daily Patient states that he has been compliant with the Bumex. Patient instructed to weigh himself daily and keep a record. Also advised patient to and taking no more than 1.5 L of fluid per day. PLAN: Plan Chronic conditions: * Atrial fibrillation-INR therapeutic at 2.8-EKG demonstrated atrial fibrillation with a rate of 91-Is chronically on Coumadin, will check daily INRs-Continue carvedilol-Coumadin dosing listed on home med list, 7 mg daily, continue * NIMCO-We will place on BiPAP at bedtime * Renal cell carcinoma status post unilateral nephrectomy in March and CKD stage IIIb-No present VIMAL, monitor daily-Is to change oncologist and follow-up with Dr. Botello-Cabozantinib continued-Home losartan continued DVT ppx: Coumadin therapeutic Discharge home
[2022-05-20 08:50] VITALS: BP 133/86; PULSE 78; RESP 18; TEMP 36.4; O2SAT 96
[2022-05-20] MEDS: Carvedilol 6.25 MG Tablet PO (08:58)
[2022-05-20] MEDS: Losartan Potassium 50 MG Tablet PO (08:58)
[2022-05-20] MEDS: Ferrous Sulfate 325 MG Tablet PO (08:58)
[2022-05-20] MEDS: Furosemide 40 MG Tablet PO (08:58)
[2022-05-20] MEDS: Albuterol 2.5 MG/3 ML VIAL.NEB. INHALATION (09:03)
--- NOTE | 2022-05-20 09:32 | DCINST_ITS ---
Discharge Instructions Diet Discharge Diet: - (1.5liters fluid/day (or 50 oz)) Dressing / Incision Call your doctor if you observe: Shortness of breath, Swelling in the ankles and Increased palpitations (irregular heartbeat) Follow Up Care Test Results: Test results from this visit will be discussed in further detail at your follow- up appointment, if applicable. Discharge Plan Admission Admit Date/Time: 05/18/22 18:23 Attending Provider: Jesús Che Primary Care Provider: Jose Ramon Turner Consulting Providers: Alicia Dukes Instructions Patient Instructions: Heart Failure Meds, Heart Failure Flare Up Signs, Heart Failure: Tracking Your Weight, Heart Failure Make Changes Diet, Heart Failure Discharge Orders/Prescriptions Prescriptions: New nystatin 100,000 unit/mL suspension 500,000 unit PO DAILY 7 Days Qty: 35 0RF Rx Instructions: administer 1/2 of dose in each side of the mouth potassium chloride 20 mEq tablet extended release 20 meq PO DAILY Qty: 30 0RF Continued cyclobenzaprine 10 mg Tablet 10 mg PO TID PRN (Reason: Spasms) carvedilol 6.25 mg tablet 12.5 mg PO DAILY pantoprazole 40 mg Tablet,Delayed Release (Dr/Ec) 40 mg PO DAILY PRN (Reason: gerd) ferrous sulfate 325 mg (65 mg iron) Tablet 325 mg PO BID albuterol 90 mcg/actuation Aerosol 90 mcg INHALATION Q4H PRN PRN (Reason: breathing) rosuvastatin 40 mg Tablet 40 mg PO DAILY cabozantinib 20 mg Tablet 20 mg PO DAILY warfarin 10 mg Tablet 7 mg PO DAILY losartan 50 mg tablet 50 mg PO DAILY Qty: 60 0RF bumetanide 2 mg Tablet 2 mg PO BIDLX Qty: 60 0RF Referrals / Follow Up: [facility] [Provider Group] - 05/27/22 10:30 am *[facility] [Provider Group] - Within 1 Month Jose Ramon Turner MD [Primary Care Provider] - Within 2 Weeks Disposition Disposition (needs filled in before D/C Order can be placed): Home, Self Care
--- NOTE | 2022-05-20 09:39 | PCM.DC.SUM ---
Providers Date of Admission: 05/18/22 Primary Care Physician: Dr. Jose Ramon Turner MD Reason For Visit: AECHF Diagnosis Discharge Diagnosis (1) CHF (congestive heart failure): Status: Acute Code(s): I50.9 - Heart failure, unspecified Qualifiers: Heart failure chronicity: acute Plan: Acute exacerbation of chronic congestive heart failure/heart failure with reduced ejection fraction -Reports he is up 15 pounds in 1 week -Troponin 73, BNP 343 with chest x-ray with left perihilar and right lower lobe reticular nodular interstitial thickening from inflammatory or early interstitial pulmonary edema -We will give 40 of IV Lasix twice daily -Daily weights -I's and O's -Fluid restriction -Had echo 04/14/2022 which demonstrated moderate concentric left ventricular hypertrophy, EF of 40%, mild to moderate global hypokinesis of the left ventricle, given echo roughly 1 month ago did not order repeat Continue carvedilol and losartan Resume Bumex 2 mg twice daily Patient states that he has been compliant with the Bumex. Patient instructed to weigh himself daily and keep a record. Also advised patient to and taking no more than 1.5 L of fluid per day. (2) Thrush: Status: Acute Code(s): B37.0 - Candidal stomatitis Plan: Patient had thrush on exam today. Patient white plaques on his upper palate. Patient was started on 7-day course of nystatin swish and swallow. Plan Chronic conditions: Atrial fibrillation-INR therapeutic at 2.8-EKG demonstrated atrial fibrillation with a rate of 91-Is chronically on Coumadin, will check daily INRs-Continue carvedilol-Coumadin dosing listed on home med list, 7 mg daily, continue NIMCO-We will place on BiPAP at bedtime Renal cell carcinoma status post unilateral nephrectomy in March and CKD stage IIIb-No present VIMAL, monitor daily-Is to change oncologist and follow-up with Dr. Botello-Cabozantinib continued-Home losartan continued. Patient appears to been established with oncology at the [facility] and then at [facility] but due to insurance changes, he will be following up with [place] [facility]. DVT ppx: Coumadin therapeutic Discharge home Medications at Discharge Home Medications albuterol 90 mcg/actuation aerosol inhaler 90 mcg inhalation Q4H PRN PRN breathing 12/07/21 cabozantinib 20 mg tablet 20 mg PO DAILY 12/07/21 carvedilol 6.25 mg tablet 12.5 mg PO DAILY 12/07/21 cyclobenzaprine 10 mg tablet 10 mg PO TID PRN Spasms 12/07/21 ferrous sulfate 325 mg (65 mg iron) tablet 325 mg PO BID 12/07/21 pantoprazole 40 mg tablet,delayed release 40 mg PO DAILY PRN gerd 12/07/21 rosuvastatin 40 mg tablet 40 mg PO DAILY cholesterol 12/07/21 warfarin 10 mg tablet 7 mg PO DAILY Check with primary doctor 12/07/21 losartan 50 mg tablet 50 mg PO DAILY #60 tabs 12/09/21 bumetanide 2 mg tablet 2 mg PO BIDLX #60 tabs 05/20/22 nystatin 100,000 unit/mL oral suspension 500,000 unit (5 mL) PO DAILY 7 days #35 mL 05/20/22 potassium chloride 20 mEq tablet,extended release 20 meq PO DAILY #30 tabs 05/20/22 Hospital Course Operations None Procedures None Summary of Care Provided Minutes Spent on Discharge: 33 Weight / BMI Weight Weight: 123.4 kg Body Mass Index (BMI) 37.9 ABG / Lab / Microbiology Data Result Diagrams: 05/19/22 05:43 05/20/22 05:08 Laboratory: Laboratory Results - last 24 hr 05/20/22 05:08: PT 28.3 H, INR 2.7 05/20/22 05:08: Sodium 140, Potassium 3.3 L, Chloride 103, Carbon Dioxide 30.0, Anion Gap 7, BUN 21 H, Creatinine 1.78 H, Estim Creat Clear Calc 48.18, Est GFR (MDRD) Af Amer 51 L, Est GFR (MDRD) Non-Af 42 L, BUN/Creatinine Ratio 11.8, Glucose 170 H, Calcium 8.8 Microbiology: Microbiology 05/18/22 20:05 Mucosa - Nasopharyngeal Respiratory Panel (PCR) - Final D/C Instructions Discharge Diet: - (1.5liters fluid/day (or 50 oz)) Call your doctor if you observe: Shortness of breath, Swelling in the ankles and Increased palpitations (irregular heartbeat) Meaningful Use Info Meaningful Use Diagnoses (Choose all that apply): CHF CHF NASRIN/ARB ordered at discharge?: Yes Documented LVEF (%): 40 Discharge Plan Admission Admit Date/Time: 05/18/22 18:23 Attending Provider: Jesús Che Primary Care Provider: Jose Ramon Turner Consulting Providers: Alicia Dukes Instructions Patient Instructions: Heart Failure Meds, Heart Failure Flare Up Signs, Heart Failure: Tracking Your Weight, Heart Failure Make Changes Diet, Heart Failure Discharge Orders/Prescriptions Prescriptions: New nystatin 100,000 unit/mL suspension 500,000 unit PO DAILY 7 Days Qty: 35 0RF Rx Instructions: administer 1/2 of dose in each side of the mouth potassium chloride 20 mEq tablet extended release 20 meq PO DAILY Qty: 30 0RF Continued cyclobenzaprine 10 mg Tablet 10 mg PO TID PRN (Reason: Spasms) carvedilol 6.25 mg tablet 12.5 mg PO DAILY pantoprazole 40 mg Tablet,Delayed Release (Dr/Ec) 40 mg PO DAILY PRN (Reason: gerd) ferrous sulfate 325 mg (65 mg iron) Tablet 325 mg PO BID albuterol 90 mcg/actuation Aerosol 90 mcg INHALATION Q4H PRN PRN (Reason: breathing) rosuvastatin 40 mg Tablet 40 mg PO DAILY cabozantinib 20 mg Tablet 20 mg PO DAILY warfarin 10 mg Tablet 7 mg PO DAILY losartan 50 mg tablet 50 mg PO DAILY Qty: 60 0RF bumetanide 2 mg Tablet 2 mg PO BIDLX Qty: 60 0RF Referrals / Follow Up: [facility] [Provider Group] - 05/27/22 10:30 am *[facility] [Provider Group] - Within 1 Month Jose Ramon Turner MD [Primary Care Provider] - Within 2 Weeks Disposition Disposition (needs filled in before D/C Order can be placed): Home, Self Care Charges/Coding Visit Charges Inpatient E&M: 77217 Disch Hosp >30min
== END 2022-05-20 12:38 | disposition home or self-care (01) | DRG 291 ==
LOC: ED 17:02 → PCU 18:42
PROVIDERS: Admitting Provider Internal Medicine; Emergency Provider Emergency Medicine; PCP Family Medicine
DX: I13.0 Hypertensive heart and chronic kidney disease with heart failure and stage 1 through stage 4 chronic kidney disease, or unspecified chronic kidney disease (principal); I50.23 Acute on chronic systolic (congestive) heart failure; B37.0 Candidal stomatitis; N17.9 Acute kidney failure, unspecified; C64.9 Malignant neoplasm of unspecified kidney, except renal pelvis; I48.91 Unspecified atrial fibrillation; J44.9 Chronic obstructive pulmonary disease, unspecified; N18.32 Chronic kidney disease, stage 3b; F17.200 Nicotine dependence, unspecified, uncomplicated; G47.33 Obstructive sleep apnea (adult) (pediatric); Z79.01 Long term (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 of 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; Z99.89 Dependence on other enabling machines and devices; Z90.5 Acquired absence of kidney
CPT/HCPCS: 36415; 71045; 80048; 80053; 83735; 83880; 84443; 84484; 85025; 85610; 87633; 87635; 93005; 94002; 94003; 94640; 94660; 94668; 94762; 97802; 99252; 99285; A4216; G0463; J1940; U0003; U0005

== ENCOUNTER 2022-06-27 23:03 | Inpatient (IN) | payer OTHER, SELFPAY ==
[2022-06-27 23:04] VITALS: BP 140/103; PULSE 108; RESP 22; TEMP 36.4; O2SAT 93; BMI 38.8
[2022-06-27 23:15] VITALS: BP 129/94; PULSE 90; RESP 20; TEMP 36.6; O2SAT 94
--- NOTE | 2022-06-27 23:18 | EKG12_ITS ---
Test Reason : Blood Pressure : / mmHG Vent. Rate : 106 BPM Atrial Rate : 000 BPM P-R Int : 000 ms QRS Dur : 086 ms QT Int : 364 ms P-R-T Axes : 000 065 -51 degrees QTc Int : 483 ms Atrial fibrillation with rapid ventricular response Nonspecific ST and T wave abnormality Abnormal ECG Confirmed by RODRICK CLEMENT, OSITO ([id number]), online content editor LISA ADAM ([id number]) on 06/29/2022 11:23:09 AM Referred By: Confirmed By:OSITO MENSAH MD
--- NOTE | 2022-06-27 23:19 | RAD_ITS ---
STUDY: X-RAY CHEST REASON FOR EXAM: Male, 57 years old. sob TECHNIQUE: PA and lateral views of the chest. COMPARISON: 05/18/2022 FINDINGS: The lungs are clear and expanded. No change in the pleural-based mass in the lateral right lung. There is moderate cardiac enlargement. Normal mediastinum and tesha. Normal visualized pulmonary arteries. Normal visualized aortic arch and descending thoracic aorta. Normal visualized thoracic spine. Normal visualized ribs, clavicles, and shoulders. There is no demonstrated abnormality of the visualized soft tissue structures of the upper abdomen. RAD/Chest PA and Lateral IMPRESSION: No change in right-sided pleural-based mass. Cardiomegaly. Electronically Signed: Lul Peters MD at 23:42 EDT ,
--- NOTE | 2022-06-27 23:25 | EDS_ITS ---
HPI History of Present Illness Chief Complaint: Chest Pain Informant: patient, spouse/S.O. and family Narrative Narrative: 10-day history worsening dyspnea with exertion with mild chest discomfort. Significant other present. Diagnosed history of CHF had a heart cath at [facility] that was negative. History of paroxysmal A-fib on warfarin. Taking his medications. Just got off the airplane from a cruise gone for 7 days. He was symptomatic then. Symptoms improved with rest. He states he does weigh himself daily stating there is no weight gain. Recent diagnosis of these issues as of February. Incidental finding from a syncopal episode at work finding right renal cell carcinoma leading to cardiac work-up and a right nephrectomy. He was found to have CHF then along with atrial fibrillation. He has been hospitalized here twice in the last couple of months for similar. With sleep apnea he does not sleep flat however states he would be short of breath. Denies any increasing leg swelling. Symptoms improved with rest, states he can only walk from the bed to the door before getting short of breath. Prior Similar Symptoms: Yes Recent Illness/Hospitalization: Yes CVD Risk Factors: Positive for Hypertension and Smoking PE Risk Factors: Positive for Recent Travel/Surgery PFSH PFSH Medical History Atrial fibrillation CKD (chronic kidney disease), stage III COPD (chronic obstructive pulmonary disease) GERD (gastroesophageal reflux disease) Hyperlipidemia Hypertension NIMCO on CPAP Renal cell cancer Systolic CHF Tobacco use Home Medications albuterol 90 mcg/actuation aerosol inhaler 90 mcg inhalation Q4H PRN PRN breathing 12/07/21 [History Last Taken Unknown] cabozantinib 20 mg tablet 20 mg PO DAILY 12/07/21 [History Last Taken Unknown] cyclobenzaprine 10 mg tablet 10 mg PO TID PRN Spasms 12/07/21 [History Last Taken Unknown] ferrous sulfate 325 mg (65 mg iron) tablet 325 mg PO BID 12/07/21 [History Last Taken Unknown] warfarin 10 mg tablet 8 mg PO DAILY Check with primary doctor 12/07/21 [History Last Taken Unknown] potassium chloride 20 mEq tablet,extended release 20 meq PO DAILY #30 tabs 05/20/22 [Rx Last Taken Unknown] rosuvastatin 40 mg tablet 40 mg PO DAILY cholesterol #30 tabs 05/20/22 [Rx Last Taken Unknown] fluticasone fur. 100 mcg-umeclid 62.5 mcg-vilant 25 mcg inhalat.powder (Trelegy Ellipta) 1 inh inhalation DAILY 05/22/22 [History Last Taken Unknown] spironolactone 25 mg tablet 25 mg PO DAILY 05/22/22 [History Last Taken Unknown] pantoprazole 40 mg tablet,delayed release 40 mg PO DAILY gerd 05/25/22 [History Last Taken Unknown] bumetanide 2 mg tablet 2 mg PO BID #180 tabs 06/17/22 [Rx Last Taken Unknown] albuterol sulfate 2.5 mg/3 mL (0.083 %) solution for nebulization 2.5 mg inhalation PRN PRN Shortness Of Breath 06/27/22 [History Last Taken Unknown] carvedilol 12.5 mg tablet 18.75 mg PO BID 06/27/22 [History Last Taken Unknown] furosemide 40 mg tablet (Lasix) 40 mg PO DAILY 06/27/22 [History Last Taken Unknown] losartan 50 mg tablet 50 mg PO DAILY 06/27/22 [History Last Taken Unknown] Allergy/AdvReac Type Severity Reaction Status Date / Time lisinopril Allergy Severe Angioedema Verified 05/27/22 10:45 aspirin [ASA] Allergy Other Verified 05/27/22 10:45 mushroom [mushrooms] Allergy Hives Verified 05/27/22 10:45 Penicillins Allergy PT UNSURE Verified 05/27/22 10:45 OF REACTION shellfish derived Allergy Hives Verified 05/27/22 10:45 Family History (Updated 06/28/22 @ 00:[address] Estelita Lu MD) Father Cancer Mother Heart disease Hypertension Myocardial infarction Surgical History History of cardiac cath (~07/2021) History of cardioversion (~09/2021) History of nephrectomy, right Social History (Updated 06/28/22 @ 00:[address] Estelita Lu MD) household members: spouse and family Smoking Status: Light Smoker (<10/day) Electronic Cigarette Use: with nicotine alcohol intake: current alcohol intake frequency: a few times a month substance use type: does not use ROS ROS ED Constitutional Constitutional ED: Denies chills, fever(s) or sweats Eyes Eyes: Denies change in vision ENT ENT ED: Denies dysphagia or sore throat Cardiovascular Cardiovascular: Reports chest pain and orthopnea; Denies leg edema, palpitations or racing heartbeat Respiratory/Chest Respiratory/Chest: Reports cough, dyspnea, dyspnea on exertion and orthopnea Gastrointestinal Gastrointestinal: Denies abdominal pain, diarrhea, nausea or vomiting Genitourinary Genitourinary ED: Denies dysuria, hematuria or urinary frequency Musculoskeletal Musculoskeletal: Denies back pain, extremity pain or neck pain Integumentary Denies rash or wounds Neurologic Neurologic: Denies headache(s), paresthesias or weakness EXAM Physical Exam Const Vital Signs: 06/27/22 23:04 06/27/22 23:09 06/27/22 23:44 Temperature 97.5 F L Temperature Source Temporal Pulse Rate 108 H 110 H Respiratory Rate 22 H 26 H Respiratory Effort Short of Breath Labored Respiratory Pattern Tachypnea Blood Pressure 140/103 H 148/75 H Blood Pressure Mean 115 99 Pulse Ox 93 94 Oxygen Delivery Method Room Air Room Air Positive well nourished and well developed General Appearance ED: well developed and NAD HEENT Reports moist mucous membranes normocephalic and atraumatic Eyes PERRL, EOMs intact bilaterally and conjunctivae normal General Eye ED: Yes normal appearance of both eyes Neck no lymphadenopathy and supple General: Negative for tenderness Chest Wall Chest: Negative for tenderness Resp normal respiratory effort and normal air movement Effort and Inspection: symmetric chest movement; Negative for respiratory distress Cardio regular rate and no murmurs Rhythm: abnormal rhythm Peripheral Pulses: pulses 2+ throughout GI normal to inspection, nondistended, normoactive bowel sounds and non-tender Palpation: Negative for guarding or rebound tenderness present Back/Spine no CVA tenderness and no thoracic nor lumbar tenderness Extremity normal to inspection Extremity Narrative: Minimal bilateral lower extremity edema General Extremety ED: Yes edema; Negative for tenderness General Extremity: edema Neuro oriented x3 and no sensory deficits noted Sensorium / Orientation: awake and alert Skin no rashes or lesions noted and no wounds MDM MDM MDM Narrative Medical decision making narrative: Interventions / MDM: Differential diagnosis: CHF exacerbation, recurrent atrial fibrillation, ACS Diagnosis considered but do not suspect: Pulmonary embolism, her INR is therapeutic My EKG interpretation: Atrial fibrillation rate of 106, no ST or T wave changes. Imaging independently reviewed and interpreted by myself: 2 view chest x-ray: Stable right lung mass, no pleural effusion External documents reviewed: Previous inpatient discharge records noted he was discharged on Bumex 2 mg twice daily. He was taken off torsemide in April and transition to Bumex. He is not currently on spironolactone or Lasix. Discharge weight in May last month 123.4 kg. Today's weight 126.3 kg. Copy of heart cath in July 2021 reviewed, minimal diffuse coronary disease. Test considered but not ordered:N/A ED course: EKG atrial fibrillation RVR, however heart rate will fluctuate 90s to low 100s. Blood pressure stable. Chest x-ray no pleural effusion. Labs troponin 92, is allergic at friend. He is there with his INR at 2. Troponin pending. BNP 278. 3 kg weight gain from discharge. Further discussion he has been only using Bumex once a day not twice a day. This is likely contributing. He is treated with Lasix 40 mg a day on his last admission. He is given 40 mg IV Lasix in the ED. Creatinine 1.84 stable from previous. Patient report only ambulating short distance before becoming short of breath. I discussed with hospitalist Dr. Lu for admission. Re-evaluation: stable Disposition discussed with patient/family/significant other: Patient and family Case discussed with consulting clinician: Hospitalist, Dr. Lu Lab Data Attestation: I reviewed the patient's lab results. Labs: Laboratory Results - last 24 hr 06/27/22 06/27/22 06/27/22 23:15 23:15 23:15 WBC 5.5 RBC 4.24 L Hgb 14.6 Hct 43.8 MCV 103.3 H MCH 34.4 H MCHC 33.3 RDW Std Deviation 67.8 H RDW Coeff of Lizzie 17.9 H Plt Count 201 MPV 11.2 Immature Gran % (Auto) 0.900 Neut % (Auto) 75.4 H Lymph % (Auto) 16.8 L [place] % (Auto) 6.0 Eos % (Auto) 0.5 Baso % (Auto) 0.4 Absolute Neuts (auto) 4.2 Absolute Lymphs (auto) 0.93 Nucleated RBC % 2.9 Differential Comment SCANNED Anisocytosis 2+ Macrocytosis 2+ PT 22.5 H INR 2.0 APTT 46.5 H Sodium 140 Potassium 3.5 Chloride 109 H Carbon Dioxide 26.0 Anion Gap 5 BUN 27 H Creatinine 1.84 H Estim Creat Clear Calc 46.61 Est GFR (MDRD) Af Amer 49 L Est GFR (MDRD) Non-Af 40 L BUN/Creatinine Ratio 14.7 Glucose 127 H Calcium 8.9 Phosphorus Troponin I High Sens 92 H B-Natriuretic Peptide 06/27/22 06/27/22 23:15 23:15 WBC RBC Hgb Hct MCV MCH MCHC RDW Std Deviation RDW Coeff of Lizzie Plt Count MPV Immature Gran % (Auto) Neut % (Auto) Lymph % (Auto) [place] % (Auto) Eos % (Auto) Baso % (Auto) Absolute Neuts (auto) Absolute Lymphs (auto) Nucleated RBC % Differential Comment Anisocytosis Macrocytosis PT INR APTT Sodium Potassium Chloride Carbon Dioxide Anion Gap BUN Creatinine Estim Creat Clear Calc Est GFR (MDRD) Af Amer Est GFR (MDRD) Non-Af BUN/Creatinine Ratio Glucose Calcium Phosphorus 2.8 Troponin I High Sens B-Natriuretic Peptide 278.3 H Radiography Diagnostic Testing: Clinical Impression(s) from Imaging Studies Chest X-Ray 06/27/22 23:19 IMPRESSION: No change in right-sided pleural-based mass. Cardiomegaly. Electronically Signed: Lul Peters MD at 23:42 EDT , Discharge Plan Dx/Rx/DC Orders Clinical Impression: Acute exacerbation of CHF (congestive heart failure), Metastatic renal cell carcinoma to bone, CKD (chronic kidney disease), Elevated troponin, Atrial fibrillation Disposition Disposition: Acute Care Hospital [facility] Discharge Date/Time: 06/28/22 01:02
[2022-06-27 23:34] LABS: Absolute Lymphocyte Count 0.93 X10^3/uL (0.83-4.51); Absolute Neutrophil Count 4.2 X10^3/uL (2.0-7.7); Basophil# 0.02 X10^3/uL; Basophil% 0.4 % (0-1); Eosinophil# 0.03 X10^3/uL; Eosinophils% 0.5 % (0-5); Hematocrit 43.8 % (40-54); Hemoglobin 14.6 g/dL (13.0-16.5); Lymphocyte # 0.93 X10^3/ul (0.83-4.51); Lymphocyte % 16.8 % (19-41); Mean Corp Hgb Conc 33.3 g/dL (32-36); Mean Corpuscular Hgb 34.4 pg (27.0-32.0); Mean Corpuscular Volume 103.3 fL (80-94); Mean Platelet Vol. 11.2 fl (6.2-12.0); Monocyte# 0.33 X10^3/uL; NRBC Flagged by Analyzer 2.9 % (0-5); Neutrophil # 4.16 X10^3/uL (2.7-7.7); Neutrophil % 75.4 % (47-70); POSITIVE MORPHOLOGY YES; Platelet Count 201 K/mm3 (150-450); RBC Distribution Width CV 17.9 % (11.6-14.6); RBC Distribution Width SD 67.8 fl (35.1-43.9); Red Blood Count 4.24 M/mm3 (4.6-6.2); White Blood Count 5.5 K/mm3 (4.4-11.0)
[2022-06-27 23:39] LABS: Differential Indicated SCAN CRITERIA MET
[2022-06-27 23:40] LABS: Prothrombin Time (Protime)PT. 22.5 SECONDS (11.7-14.9)
[2022-06-27 23:41] LABS: Partial Thromboplast Time 46.5 Seconds (24.1-36.2)
[2022-06-27 23:44] VITALS: BP 148/75; PULSE 110; RESP 26; O2SAT 94
[2022-06-27 23:48] LABS: Anion Gap 5 (5-15); BUN 27 mg/dL (7-18); BUN/Creat Ratio 14.7 RATIO (10-20); Calcium,Total 8.9 mg/dL (8.5-10.1); Chloride 109 mmol/L (98-107); Creatinine, Serum 1.84 mg/dL (0.70-1.30); EST Glomerular Filtration Rate 40 mL/min (>60); Est Glom Filt Rate - Afr Amer 49 mL/min (>60); Estimated Creatinine Clearance 46.61 ml/min; Glucose 127 mg/dL (74-106); Potassium 3.5 mmol/L (3.5-5.1); Sodium Level 140 mmol/L (136-145); Troponin-I HS 92 pg/mL (3.0-78.0)
[2022-06-27 23:57] LABS: BNP,B-Type NATRIURETIC PEPTIDE 278.3 pg/mL (0-100)
[2022-06-28] VITALS (10 sets, daily range): BP systolic 118–140; BP diastolic 84–97; PULSE 84–98; RESP 16–24; TEMP 35.7–37.1; O2SAT 92–100; BMI 37.8
--- NOTE | 2022-06-28 00:07 | HP.PCM.HOS_ITS ---
HPI - General General Date of Admission: 06/28/22 Date of Service: 06/28/22 Chief Complaint: Dyspnea, chest pain, wheezing, cough, recent incorrect Rx bumex. HPI Narrative The patient is a 57 y/o M w/ PMHx: Obesity, NIMCO on CPAP, PAF s/p prior cardioversion on coumadin, COPD, HTN, HLD, GERD, Metastatic renal CA s/p R nephrectomy, Tobacco use who presents to the [facility] ED on 06/27/22 with history of worsening dyspnea over the last 7 to 10 days with associated mild chest discomfort midsternal with exertion described as tightness rated 3-4/10, improving with aerosol treatments, recently completing a 7-day cruise with air travel with no recent weight gain with chronic orthopnea which and no recent increased weight gain prompting eventual ED evaluation. He notes he can essentially walk short distances only otherwise he becomes short of breath. Patient per report has also recently been only accidentally taking his bumex once daily instead of 2 mg po BID. He does report also a mild dry cough that has been ongoing with these symptoms also. Work-up in the ED included T97.5, heart rate 108, BP 140/103, respiratory rate 22, 93% oxygenation, CBC with WBC 5.5, hemoglobin 14.6, platelet 201 without marked shift, coags with INR 2.0, PT 22.5, PTT 46.5, BMP with chloride 109, BUN/creatinine 27/1.84, glucose 127, troponin 92 with most recent prior to this noted 05/18/2372 and prior to this 04/14/2022 121, BNP 278.3, chest x-ray with right-sided pleural-based mass which is reported as unchanged in size from prior and cardiomegaly with no acute cardiopulmonary findings otherwise, rapid COVID antigen with SARS COVID negative. In the ED patient administered Lasix 40 mg IV x1. PFSH Medical History Atrial fibrillation CKD (chronic kidney disease), stage III COPD (chronic obstructive pulmonary disease) GERD (gastroesophageal reflux disease) Hyperlipidemia Hypertension NIMCO on CPAP Renal cell cancer Systolic CHF Tobacco use Home Medications albuterol 90 mcg/actuation aerosol inhaler 90 mcg inhalation Q4H PRN PRN breathing 12/07/21 [History Last Taken Unknown] cabozantinib 20 mg tablet 20 mg PO DAILY 12/07/21 [History Last Taken Unknown] cyclobenzaprine 10 mg tablet 10 mg PO TID PRN Spasms 12/07/21 [History Last Taken Unknown] ferrous sulfate 325 mg (65 mg iron) tablet 325 mg PO BID 12/07/21 [History Last Taken Unknown] warfarin 10 mg tablet 8 mg PO DAILY Check with primary doctor 12/07/21 [History Last Taken Unknown] potassium chloride 20 mEq tablet,extended release 20 meq PO DAILY #30 tabs 05/20/22 [Rx Last Taken Unknown] rosuvastatin 40 mg tablet 40 mg PO DAILY cholesterol #30 tabs 05/20/22 [Rx Last Taken Unknown] fluticasone fur. 100 mcg-umeclid 62.5 mcg-vilant 25 mcg inhalat.powder (Trelegy Ellipta) 1 inh inhalation DAILY 05/22/22 [History Last Taken Unknown] spironolactone 25 mg tablet 25 mg PO DAILY 05/22/22 [History Last Taken Unknown] pantoprazole 40 mg tablet,delayed release 40 mg PO DAILY gerd 05/25/22 [History Last Taken Unknown] bumetanide 2 mg tablet 2 mg PO BID #180 tabs 06/17/22 [Rx Last Taken Unknown] albuterol sulfate 2.5 mg/3 mL (0.083 %) solution for nebulization 2.5 mg inhalation PRN PRN Shortness Of Breath 06/27/22 [History Last Taken Unknown] carvedilol 12.5 mg tablet 18.75 mg PO BID 06/27/22 [History Last Taken Unknown] furosemide 40 mg tablet (Lasix) 40 mg PO DAILY 06/27/22 [History Last Taken Unknown] losartan 50 mg tablet 50 mg PO DAILY 06/27/22 [History Last Taken Unknown] Allergy/AdvReac Type Severity Reaction Status Date / Time lisinopril Allergy Severe Angioedema Verified 05/27/22 10:45 aspirin [ASA] Allergy Other Verified 05/27/22 10:45 mushroom [mushrooms] Allergy Hives Verified 05/27/22 10:45 Penicillins Allergy PT UNSURE Verified 05/27/22 10:45 OF REACTION shellfish derived Allergy Hives Verified 05/27/22 10:45 Family History (Updated 06/28/22 @ 00:[address] Estelita Lu MD) Father Cancer Mother Heart disease Hypertension Myocardial infarction Surgical History History of cardiac cath (~07/2021) History of cardioversion (~09/2021) History of nephrectomy, right Social History (Updated 06/28/22 @ 00:[address] Estelita Lu MD) household members: spouse and family Smoking Status: Light Smoker (<10/day) Electronic Cigarette Use: with nicotine alcohol intake: current alcohol intake frequency: a few times a month substance use type: does not use ROS ROS Narrative Admission Review of Systems: CONSTITUTIONAL: No weight loss, fever, chills, + weakness or fatigue. HEENT: Eyes: No visual loss, blurred vision, double vision or yellow sclerae. Ears, Nose, Throat: No hearing loss, sneezing, congestion, runny nose or sore throat. SKIN: No rash or itching, lesions, wounds. CARDIOVASCULAR: + Chest pain (tightness), occasional palpitations, chronic orthopnea. No edema, syncopal events. RESPIRATORY: + Shortness of breath, cough without marked sputum, wheezing, No hemoptysis. GASTROINTESTINAL: No anorexia, nausea, vomiting or diarrhea, abdominal pain, melena, BRBPR. GENITOURINARY: No dysuria, frequency, urgency or retention. NEUROLOGICAL: No headache, dizziness, syncope, paralysis, ataxia, numbness or tingling in the extremities, focal weakness, change in bowel or bladder control, seizure. MUSCULOSKELETAL: + muscle, back pain, joint pain or stiffness. HEMATOLOGIC: + anemia, bleeding or bruising. LYMPHATICS: No enlarged nodes. No history of splenectomy. PSYCHIATRIC: No history of depression or anxiety. ENDOCRINOLOGIC: No reports of sweating, cold or heat intolerance. No polyuria or polydipsia. ALLERGIES: + history of hives, angioedema. Vital Signs Vital Signs Vital Signs: 06/27/22 23:04 06/27/22 23:09 06/27/22 23:44 Temperature 97.5 F L Temperature Source Temporal Pulse Rate 108 H 110 H Respiratory Rate 22 H 26 H Respiratory Effort Short of Breath Labored Respiratory Pattern Tachypnea Blood Pressure 140/103 H 148/75 H Blood Pressure Mean 115 99 Pulse Ox 93 94 Oxygen Delivery Method Room Air Room Air Weight Weight: 278 lb 7.101 oz Body Mass Index (BMI) 38.8 Physical Exam Narrative Physical Examination: General: Awake, alert, oriented x 3 and cooperative, seated upright in the ED bed. Skin: Normal color, normal turgor, no icterus, no cyanosis. HEENT: AT/NC, EOMI, PERRLA, MMM, no carotid bruits, difficult to discern JVD secondary to very thickened neck. Lungs: Extremely diminished, greater bases, occasional very soft distant expiratory wheeze, mildly increased respiratory rate but no distress, no ap preciated rales or rhonchi. Heart: Irregular irregular; no appreciated gallop, rub or murmur. Abdomen: Soft, obese, NTTP, ND, distant normal BS, no HSM. Extremities: No cyanosis, no clubbing nor peripheral pitting edema noted. Neurological: Patient awake, alert, oriented as noted, cognitive function intact; pupils equally reactive to light and accommodation, cranial nerves II- XII grossly normal, moving all 4 extremities, no focal deficits, strength moderately global decrease secondary to acute presentation complaints. Psychiatric: Affect appears fatigued, mildly increased respiratory rate but no overt distress, no acute evidence of depressive or anxiety feelings. Results Lab / Micro Data Result Diagrams: 06/27/22 23:15 06/27/22 23:15 Labs: Laboratory Results - last 24 hr 06/27/22 23:15: WBC 5.5, RBC 4.24 L, Hgb 14.6, Hct 43.8, MCV 103.3 H, MCH 34.4 H , MCHC 33.3, RDW Std Deviation 67.8 H, RDW Coeff of Lizzie 17.9 H, Plt Count 201, MPV 11.2, Immature Gran % (Auto) 0.900, Neut % (Auto) 75.4 H, Lymph % (Auto) 16.8 L, Grainger % (Auto) 6.0, Eos % (Auto) 0.5, Baso % (Auto) 0.4, Absolute Neuts (auto) 4.2, Absolute Lymphs (auto) 0.93, Nucleated RBC % 2.9 06/27/22 23:15: PT 22.5 H, INR 2.0, APTT 46.5 H 06/27/22 23:15: Sodium 140, Potassium 3.5, Chloride 109 H, Carbon Dioxide 26.0, Anion Gap 5, BUN 27 H, Creatinine 1.84 H, Estim Creat Clear Calc 46.61, Est GFR (MDRD) Af Amer 49 L, Est GFR (MDRD) Non-Af 40 L, BUN/Creatinine Ratio 14.7, Glucose 127 H, Calcium 8.9, Troponin I High Sens 92 H 06/27/22 23:15: B-Natriuretic Peptide 278.3 H Micro: Microbiology 06/27/22 23:30 Nasal Secretion SARS-CoV-2 Antigen (Rapid) - Final Radiology Impression Chest X-Ray 06/27/22 23:19 IMPRESSION: No change in right-sided pleural-based mass. Cardiomegaly. Electronically Signed: Lul Peters MD at 23:42 EDT , Assessment & Plan Assessment/Plan (1) Dyspnea: PLAN: Plan The patient is a 57 y/o M w/ PMHx: Obesity, NIMCO on CPAP, PAF s/p prior cardioversion on coumadin, COPD, HTN, HLD, GERD, Metastatic renal CA s/p R nephrectomy, Tobacco use who presents to the [facility] ED on 06/27/22 with history of worsening dyspnea over the last 7 to 10 days with associated mild chest disc omfort recently completing a 7-day cruise with air travel included with symptoms improved with rest with no recent weight gain with chronic orthopnea which and no recent increased weight gain prompting eventual ED evaluation. #1. Dyspnea, chest discomfort, multifactorial, secondary to paroxsymal atrial fibrillation with RVR with elevated indeterminate cardiac enzyme and Possible CHF Exacerbation #2 as well as #3 and #4: EKG in ED w/ atrial fibrillation w/ RVR. Will admit to PCU, maintain on telemetry, obtain cardiac enzyme serial set to be cautious, obtain magnesium level, most recent echocardiogram as noted 04/14/2022, obtain TSH level. We will continue Coumadin with INR trending. Continue patient home Coreg regimen with dose x 1 now. #2. Chronic systolic CHF, possibly secondary to recently taking his medications wrong: In the ED patient administered Lasix 40 mg IV x1 however chest x-ray with no overt failure, BNP lower than previous, but he has been incorrectly taking his bumex although suspect could certainly moreso from atrial fibrillation with RVR and potentially his underlying metastatic renal cancer with right-sided pleural-based mass although similar in size per chest x-ray. 04/14/2022 echocardiogram with normal LV size, moderate concentric LVH, EF 40%, mild to moderate global hypokinesis LV, LA moderately enlarged, RA moderately enlarged, mild EDITH. We will continue coumadin with INR trending, Coreg, spironolactone, losartan, statin therapy, will pulse dose with IV lasix and transition back to bumex 06/29/22 evening. #3. Acute on chronic COPD exacerbation: Will maintain on oxygen with wean as tolerated to room air although currently not using supplementation, will hold home inhalers and especially given #1 we will transition to ATC budesonide therapy, PRN albuterol, IV methylprednisolone, HOB, IS parameters, patient with nonproductive cough but if able to give sputum's would certainly order sputum culture but at this point will obtain full respiratory viral panel, COVID antigen negative, procalcitonin requested. Patient does report that his aerosol nebulizer machine at home is broken therefore case management/social work will need to assist with this on discharge. #4. Metastatic renal cancer to the bone: History of right renal cancer stage IV with mets to the right ribs and L4 06/2021, soft tissue/right chest wall mass biopsy 07/01/2021 demonstrated metastatic renal cell cancer, treated withcabozantinib and nivolumab eventually transitioned off clinical trial secondary to insurance change, palliative radiation lumbar spine 12/2021, 02/06/2022 right radical nephrectomy at [facility], CT scan on 03/26/2022 showed no evidence of progressive disease, will continue home cabozantinib. Patient currently following with Dr. Botello with last evaluation noted 05/27/2022 with plan 3-month follow-up. Mag, Phos pending. May consider repeat CT chest if not improving w/ interventions #1 and #2. Low suspicion for PE given coumadin ongoing and INR therapeutic. #5. Chronic Kidney Disease Stage III, unclear subtype: Admission BUN/Cr 27/1.84, baseline renal function appears primarily 1.5-1.9, most recently 05/20/2022 creatinine 1.78, repeat BMP in AM. #6. Chronic anemia/iron deficiency anemia: Admission hemoglobin 14.6, baseline hemoglobin more recently 13-14, stable, continue to trend, continue iron supplementation. #7. Chronic COPD: We will temporally hold home inhaler, in the interim transition to ATC budesonide therapy, PRN albuterol, HOB, IS parameters. #8. Hypertension: Continue home regimen including Lasix, Coreg, losartan, spironolactone, bumetanide, PRN hydralazine. #9. Hyperlipidemia: We will continue patient on statin therapy. FLP in AM. #10. Tobacco Abuse: Encouraged cessation, inpatient consultation per RT, NR if desired. #11. Obesity: Weight loss and lifestyle changes encouraged. #12. GERD: Continue home PPI. #13. NIMCO: CPAP nightly. #14. DVT prophylaxis: Continue Coumadin with INR trending, admission INR therapeutic 2.0. #15. CODE status: Patient CHAITANYA is his who is present and living will is currently in place. Discussed CODE status at length including difference between FULL code, DNR-CCA and DNR-CC status. Following discussions about the differences in these status, requested Full Code status. Advanced Care Planning Face to Face Time: 16 minutes. Admission Evaluation Time spent evaluating chart, patient history, patient evaluation, care planning and discussion with specialists: 75 minutes. Charges/Coding Visit Charges Inpatient E&M: 44564 Init Hosp L3 Procedures Hospitalists Procedures: 35443 Advncd Care Plan 30 Min
[2022-06-28 00:17] LABS: Anisocytosis 2+; Differential Comment SCANNED; Macrocytosis 2+
[2022-06-28] MEDS: Furosemide 40 MG/4 ML Vial IV ×2 (00:21→09:07)
[2022-06-28 00:42] LABS: Phosphorus 2.8 mg/dL (2.5-4.9)
[2022-06-28] MEDS: MethylPREDNISolone 125 MG/2 ML Vial IV (01:53)
[2022-06-28] MEDS: 0.9% Saline Lock 10 ML Syringe IV ×4 (01:56→21:12)
[2022-06-28] MEDS: Carvedilol 12.5 MG Tablet 18.75 MG PO ×3 (01:57→21:07)
[2022-06-28 02:02] LABS: Magnesium 2.1 mg/dL (1.6-2.6); Troponin-I HS 97 pg/mL (3.0-78.0)
[2022-06-28 02:16] LABS: Procalcitonin 0.09 ng/mL (0.00-0.09)
[2022-06-28 05:31] LABS: Absolute Lymphocyte Count 0.28 X10^3/uL (0.83-4.51); Absolute Neutrophil Count 5.6 X10^3/uL (2.0-7.7); Basophil# 0.01 X10^3/uL; Basophil% 0.2 % (0-1); Eosinophil# 0.01 X10^3/uL; Eosinophils% 0.2 % (0-5); Hematocrit 43.7 % (40-54); Hemoglobin 14.3 g/dL (13.0-16.5); Lymphocyte # 0.28 X10^3/ul (0.83-4.51); Lymphocyte % 4.6 % (19-41); Mean Corp Hgb Conc 32.7 g/dL (32-36); Mean Corpuscular Volume 103.8 fL (80-94); Mean Platelet Vol. 11.9 fl (6.2-12.0); Monocyte# 0.14 X10^3/uL; Monocyte% 2.3 % (0-10); NRBC Flagged by Analyzer 2.3 % (0-5); POSITIVE DIFFERENTIAL YES; POSITIVE MORPHOLOGY YES; Platelet Count 189 K/mm3 (150-450); RBC Distribution Width CV 17.9 % (11.6-14.6); RBC Distribution Width SD 67.8 fl (35.1-43.9); Red Blood Count 4.21 M/mm3 (4.6-6.2); White Blood Count 6.1 K/mm3 (4.4-11.0)
[2022-06-28 05:54] LABS: International Normalized Ratio 2.1; Prothrombin Time (Protime)PT. 22.9 SECONDS (11.7-14.9)
[2022-06-28 06:03] LABS: Differential Indicated SCAN CRITERIA MET
[2022-06-28 06:08] LABS: Anisocytosis 1+; Differential Comment SCANNED; Macrocytosis 1+; Polychromasia RARE
[2022-06-28 06:09] LABS: Ovalocyte RARE
[2022-06-28 06:10] LABS: ALB/GLOB Ratio 0.9 RATIO (0.9-2.4); AST(SGOT) 130 U/L (15-37); Alanine Aminotransfer ALT/SGPT 146 U/L (16-61); Albumin, Serum 3.1 g/dL (3.2-5.0); Alkaline Phosphatase 111 U/L (45-117); Anion Gap 4 (5-15); BUN 25 mg/dL (7-18); BUN/Creat Ratio 13.5 RATIO (10-20); Calcium,Total 8.5 mg/dL (8.5-10.1); Chloride 109 mmol/L (98-107); Creatinine, Serum 1.85 mg/dL (0.70-1.30); EST Glomerular Filtration Rate 40 mL/min (>60); Est Glom Filt Rate - Afr Amer 48 mL/min (>60); Estimated Creatinine Clearance 46.36 ml/min; Globulin 3.6 g/dL (2.2-4.2); Glucose 181 mg/dL (74-106); Potassium 3.7 mmol/L (3.5-5.1); Protein, Total 6.7 g/dL (6.4-8.2); Sodium Level 138 mmol/L (136-145)
[2022-06-28] MEDS: Budesonide Respules 0.5 MG/2 ML AMPUL.NEB. INHALATION ×2 (07:15→19:32)
[2022-06-28] MEDS: Albuterol 2.5 MG/3 ML VIAL.NEB. INHALATION ×4 (07:20→19:32)
[2022-06-28 07:28] LABS: Troponin-I HS 87 pg/mL (3.0-78.0)
[2022-06-28] MEDS: Ferrous Sulfate 325 MG Tablet PO ×2 (09:03→16:34)
[2022-06-28] MEDS: Potassium Chloride Oral Tablet 20 MEQ PO (09:05)
[2022-06-28] MEDS: Losartan Potassium 50 MG Tablet PO (09:05)
[2022-06-28] MEDS: Pantoprazole Sodium 40 MG Tablet PO (09:05)
[2022-06-28] MEDS: Spironolactone 25 MG Tablet PO (09:06)
--- NOTE | 2022-06-28 14:12 | PN_ITS ---
Subjective Subjective Patient seen and examined. He still complained of shortness of breath. He denied any cough, chest pain, palpitations, dizziness, nausea, vomiting or diarrhea. Review of systems is otherwise negative. Review of systems is otherwise negative. He has remained hemodynamically stable. Objective Data Objective Data Vital Signs: Vital Signs Temp Pulse Resp BP Pulse Ox O2 Del Method O2 Flow Rate 97.1 F L 98 18 118/84 H 100 Nasal Cannula 2 06/28/22 13:44 06/28/22 13:44 06/28/22 13:44 06/28/22 13:44 06/28/22 13:44 06/28/22 13:44 06/28/22 13:44 Oxygen Flow Rate (L/min) 2 Oxygen Delivery Method Nasal Cannula Weight: 271 lb 0.016 oz Body Mass Index (BMI) 37.8 Lab / Micro Data Result Diagrams: 06/28/22 04:32 06/28/22 04:32 Labs: Laboratory Results - last 24 hr 06/27/22 23:15: WBC 5.5, RBC 4.24 L, Hgb 14.6, Hct 43.8, MCV 103.3 H, MCH 34.4 H , MCHC 33.3, RDW Std Deviation 67.8 H, RDW Coeff of Lizzie 17.9 H, Plt Count 201, MPV 11.2, Immature Gran % (Auto) 0.900, Neut % (Auto) 75.4 H, Lymph % (Auto) 16.8 L, Valley % (Auto) 6.0, Eos % (Auto) 0.5, Baso % (Auto) 0.4, Absolute Neuts (auto) 4.2, Absolute Lymphs (auto) 0.93, Nucleated RBC % 2.9, Differential Comment SCANNED, Anisocytosis 2+, Macrocytosis 2+ 06/27/22 23:15: PT 22.5 H, INR 2.0, APTT 46.5 H 06/27/22 23:15: Sodium 140, Potassium 3.5, Chloride 109 H, Carbon Dioxide 26.0, Anion Gap 5, BUN 27 H, Creatinine 1.84 H, Estim Creat Clear Calc 46.61, Est GFR (MDRD) Af Amer 49 L, Est GFR (MDRD) Non-Af 40 L, BUN/Creatinine Ratio 14.7, Glucose 127 H, Calcium 8.9, Troponin I High Sens 92 H 06/27/22 23:15: B-Natriuretic Peptide 278.3 H 06/27/22 23:15: Phosphorus 2.8 06/28/22 01:35: Magnesium 2.1, Troponin I High Sens 97 H 06/28/22 01:35: Procalcitonin 0.09 06/28/22 04:32: WBC 6.1, RBC 4.21 L, Hgb 14.3, Hct 43.7, MCV 103.8 H, MCH 34.0 H , MCHC 32.7, RDW Std Deviation 67.8 H, RDW Coeff of Lizzie 17.9 H, Plt Count 189, MPV 11.9, Immature Gran % (Auto) 0.700, Neut % (Auto) 92.0 H, Lymph % (Auto) 4.6 L, Valley % (Auto) 2.3, Eos % (Auto) 0.2, Baso % (Auto) 0.2, Absolute Neuts (auto) 5.6, Absolute Lymphs (auto) 0.28 L, Nucleated RBC % 2.3, Differential Comment SCANNED, Polychromasia RARE, Anisocytosis 1+, Macrocytosis 1+, Ovalocytes RARE 06/28/22 04:32: PT 22.9 H, INR 2.1 06/28/22 04:32: Sodium 138, Potassium 3.7, Chloride 109 H, Carbon Dioxide 25.0, Anion Gap 4 L, BUN 25 H, Creatinine 1.85 H, Estim Creat Clear Calc 46.36, Est GFR (MDRD) Af Amer 48 L, Est GFR (MDRD) Non-Af 40 L, BUN/Creatinine Ratio 13.5, Glucose 181 H, Calcium 8.5, Total Bilirubin 0.80, AST 130 H, ALT 146 H, Alkaline Phosphatase 111, Total Protein 6.7, Albumin 3.1 L, Globulin 3.6, Albumin/G lobulin Ratio 0.9, TSH 2.20 06/28/22 07:01: Troponin I High Sens 87 H Micro: Microbiology 06/28/22 00:50 Mucosa - Nose Respiratory Panel (PCR) - Final 06/27/22 23:30 Nasal Secretion SARS-CoV-2 Antigen (Rapid) - Final Radiography Diagnostic Testing: Radiology Impression Chest X-Ray 06/27/22 23:19 IMPRESSION: No change in right-sided pleural-based mass. Cardiomegaly. Electronically Signed: Lul Peters MD at 23:42 EDT , Physical Exam Const alert, oriented x3 and no apparent distress Constitutional Narrative: obese HEENT normocephalic, head/scalp atraumatic and moist oral mucous membranes Eyes PERRL and EOMs intact bilaterally Neck no lymphadenopathy and supple Lymph Lymphatic: no lymphadenopathy noted and no lymphedema noted Resp Resp Narrative: mildly diminished breath sounds bibasally, no wheezes or crackles. on 2L of oxygen by nasal canula. Cardio regular rate, regular rhythm, S1 normal heart sound, S2 normal heart sound and no murmurs GI normal to inspection, nondistended, normoactive bowel sounds, soft to palpation, non-tender and non-distended Extremity normal capillary refill, no clubbing, cyanosis or edema and no calf tenderness Skin General Skin Exam: no breakdown Neuro CN's II-XII intact bilaterally Psych thought process normal Assessment & Plan Assessment/Plan (1) Acute exacerbation of CHF (congestive heart failure): (2) Atrial fibrillation: (3) Dyspnea: PLAN: Plan #Afib with RVR * heart rate much better controlled * still feels short of breath. * Troponins are not elevated. Being diuresed with IV Lasix. * On Coreg. TSH is within normal limits. * Already on Coumadin. INR is therapeutic * #Acute on chronic exacerbation of heart failure with reduced ejection fraction. * CBC was post to be on Bumex twice daily but has been taking it once daily. * Has known EF of 40% with mild to moderate global hypokinesis of the left ventricle. * Currently being diuresed with IV Lasix. To switch back to p.o. Bumex once his shortness of breath resolved. * Titrate oxygen to maintain saturation above 90%. * #Acute on chronic COPD exacerbation. Breathing treatments. IV Solu-Medrol. Titrate oxygen to maintain saturation above 90%. Stasis nebulizer at home is broken. Case management to assist with getting a new one. #Metastatic renal cell cancer * Was diagnosed with right renal cell cancer with mets to the right ribs and r ight chest wall in June 2021. Is s/p chemotherapy and surgery. Had palliative radiation to the lumbar spine on 1021 and is s/p radical nephrectomy in February 2022. * Currently on oral chemotherapy. Follows up with oncology. * * #CKD stage III: We will monitor creatinine. Stable. #Hypertension: On Lasix and Coreg as well as losartan and spironolactone. #Hyperlipidemia: On statin #Nicotine dependence: Counseled to quit. Nicotine patch 21 mg daily. #Obesity: BMI is 37.8. Complicates acute care, expected recovery and prognosis DVT prophylaxis: Already on Coumadin. INR is therapeutic. Charges/Coding Visit Charges Inpatient E&M: 35983 Subs Hosp L2
--- NOTE | 2022-06-28 14:36 | CPS ---
Pt feels his own PAP machine is not working properly but declined to use ours @this time. He plans to wear O2 tonight.
[2022-06-28] MEDS: Atorvastatin Calcium 80 MG Tablet PO (21:07)
[2022-06-29 04:00] VITALS: BP 124/78; PULSE 88; RESP 16; TEMP 36.4; O2SAT 94
[2022-06-29 04:35] VITALS: BMI 38.2
[2022-06-29 05:31] LABS: Absolute Lymphocyte Count 0.27 X10^3/uL (0.83-4.51); Absolute Neutrophil Count 8.6 X10^3/uL (2.0-7.7); Basophil# 0.01 X10^3/uL; Basophil% 0.1 % (0-1); Hematocrit 43.6 % (40-54); Hemoglobin 14.4 g/dL (13.0-16.5); Lymphocyte # 0.27 X10^3/ul (0.83-4.51); Lymphocyte % 2.9 % (19-41); Mean Corpuscular Hgb 33.6 pg (27.0-32.0); Mean Corpuscular Volume 101.9 fL (80-94); Mean Platelet Vol. 11.4 fl (6.2-12.0); Monocyte# 0.41 X10^3/uL; Monocyte% 4.4 % (0-10); NRBC Flagged by Analyzer 2.7 % (0-5); Neutrophil # 8.56 X10^3/uL (2.7-7.7); Neutrophil % 91.8 % (47-70); POSITIVE DIFFERENTIAL YES; POSITIVE MORPHOLOGY YES; Platelet Count 191 K/mm3 (150-450); RBC Distribution Width SD 66.1 fl (35.1-43.9); Red Blood Count 4.28 M/mm3 (4.6-6.2); White Blood Count 9.3 K/mm3 (4.4-11.0)
[2022-06-29] MEDS: 0.9% Saline Lock 10 ML Syringe IV (05:37)
[2022-06-29 05:47] LABS: Differential Indicated SCAN CRITERIA MET
[2022-06-29 06:01] LABS: Anion Gap 3 (5-15); BUN 25 mg/dL (7-18); BUN/Creat Ratio 16.2 RATIO (10-20); Calcium,Total 9.1 mg/dL (8.5-10.1); Chloride 107 mmol/L (98-107); Cholesterol 126 mg/dL (200); Creatinine, Serum 1.54 mg/dL (0.70-1.30); EST Glomerular Filtration Rate 50 mL/min (>60); Est Glom Filt Rate - Afr Amer 60 mL/min (>60); Estimated Creatinine Clearance 55.69 ml/min; Glucose 210 mg/dL (74-106); High Density Lipoprotein 54 mg/dL; Potassium 3.9 mmol/L (3.5-5.1); Sodium Level 137 mmol/L (136-145); Triglycerides 60 mg/dL; Very Low Density Lipoprotein 12 mg/dL (5-40)
[2022-06-29 06:05] LABS: Anisocytosis 2+; Differential Comment SCANNED
[2022-06-29] MEDS: Budesonide Respules 0.5 MG/2 ML AMPUL.NEB. INHALATION (07:10)
[2022-06-29 07:11] VITALS: PULSE 70; RESP 18; O2SAT 92
[2022-06-29 09:00] VITALS: BP 126/92; PULSE 68; RESP 18; TEMP 36.4; O2SAT 93
[2022-06-29 09:28] VITALS: O2SAT 90; O2SAT 95
[2022-06-29] MEDS: Carvedilol 12.5 MG Tablet 18.75 MG PO (09:38)
[2022-06-29] MEDS: Pantoprazole Sodium 40 MG Tablet PO (09:39)
[2022-06-29] MEDS: Spironolactone 25 MG Tablet PO (09:39)
[2022-06-29] MEDS: Ferrous Sulfate 325 MG Tablet PO (09:39)
[2022-06-29] MEDS: Potassium Chloride Oral Tablet 20 MEQ PO (09:39)
[2022-06-29] MEDS: Losartan Potassium 50 MG Tablet PO (09:44)
--- NOTE | 2022-06-29 11:05 | PCM.DC.SUM ---
Providers Date of Admission: 06/28/22 Date of Discharge: 06/29/22 Primary Care Physician: Dr. Jose Ramon Turner MD Reason For Visit: Shortness of breath Diagnosis Discharge Diagnosis (1) Acute exacerbation of CHF (congestive heart failure): Status: Chronic Code(s): I50.9 - Heart failure, unspecified (2) Atrial fibrillation: Status: Acute Code(s): I48.91 - Unspecified atrial fibrillation (3) Dyspnea: Status: Acute Code(s): R06.00 - Dyspnea, unspecified Medications at Discharge Home Medications cabozantinib 20 mg tablet 20 mg PO DAILY 12/07/21 cyclobenzaprine 10 mg tablet 10 mg PO TID PRN Spasms 12/07/21 albuterol sulfate 2.5 mg/3 mL (0.083 %) solution for nebulization 2.5 mg (3 mL) inhalation PRN PRN Shortness Of Breath #75 mL 06/29/22 bumetanide 2 mg tablet 2 mg PO BID #60 tabs 06/29/22 carvedilol 12.5 mg tablet 18.75 mg PO BID #90 tabs 06/29/22 ferrous sulfate 325 mg (65 mg iron) tablet 325 mg PO BID #30 tabs 06/29/22 fluticasone fur. 100 mcg-umeclid 62.5 mcg-vilant 25 mcg inhalat.powder (Trelegy Ellipta) 1 inh inhalation DAILY #28 ea 06/29/22 losartan 50 mg tablet 50 mg PO DAILY #30 tabs 06/29/22 nystatin 100,000 unit/mL oral suspension 100,000 unit PO DAILY #60 mL 06/29/22 pantoprazole 40 mg tablet,delayed release 40 mg PO DAILY gerd #30 tabs 06/29/22 potassium chloride 20 mEq tablet,extended release 20 meq PO DAILY #30 tabs 06/29/22 rosuvastatin 40 mg tablet 40 mg PO DAILY cholesterol #30 tabs 06/29/22 spironolactone 25 mg tablet 25 mg PO DAILY #30 tabs 06/29/22 warfarin 10 mg tablet 8 mg PO DAILY Check with primary doctor #30 tabs 06/29/22 Hospital Course Operations None Procedures None Summary of Care Provided Minutes Spent on Discharge: 37 Hospital Course: Mr. Vega is a 57-year-old white male with a complicated past medical history who presented to the emergency department with new onset dyspnea, chest pain, wheezing and cough on 06/28/2022. He had recently been taking his Bumex but taking an incorrect dose only taking it once a day versus twice daily. He had some mild chest discomfort on presentation that improved with aerosol treatments and he recently returned from a 7-day cruise. He denied any weight gain but did report chronic orthopnea. Oxygen saturation on presentation was 93% on room air and he was found to be in A-fib with RVR having a heart rate of 108. Laboratory data was otherwise fairly unremarkable other than a mildly elevated BNP at 278.3. Chest x-ray showed a right-sided pleural base mass which was unchanged from previous and cardiomegaly. Rapid flu and COVID-19 antigens were negative. Respiratory viral panel was unremarkable. Given his recent noncompliance with home diuretics it was suspected that was predominantly related to acute exacerbation of CHF. He was admitted to the PCU and maintained on IV diuresis. Troponin was not elevated and he did well with diuresis. He did require some supplemental oxygen at 2 L at maximum during hospital stay but nothing higher than this. An ambulatory oxygen saturation was obtained prior to discharge and he was 95% at rest and 98% with exertion indicating he did not need oxygen. I did discuss with him the importance of compliance. He stated he read the Bumex dosing incorrectly and was only taking it once a day. There is not been any recent change in his medication and he has been compliant with his Aldactone. He did request discharge with new prescriptions for his home medications as he was not able to get his home medications filled by his primary care physician as they required a visit prior to performing that. He does have a visit scheduled on 07/08/2022. I discussed with him the importance of ongoing compliance. He is on Coumadin at baseline for paroxysmal atrial fibrillation. His INR was therapeutic throughout his hospital stay and was 2.1. He was supposed to follow-up with his primary care physician as scheduled and continue ongoing management with his INR as he had prior to admission. Prescriptions for his medications were sent to his local pharmacy for 1 month supply and we did obtain a new nebulizer for him prior to discharge as he indicated his 1 at home was no longer working. He was discharged home in stable condition on room air on 06/29/2022. Discharge diagnoses: Atrial fibrillation with RVR--> now rate controlled Acute on chronic HFrEF-resolved COPD Metastatic renal cell carcinoma CKD stage IIIa Hypertension Hyperlipidemia GERD NIMCO Tobacco abuse Physical Exam Narrative Patient states he is feeling much better overall. Indicates he made a mistake and dosing his Bumex and was only taking it once daily instead of twice daily. Asked for refills on all his prescriptions. Indicates he also needs a new home nebulizer unit. This will be arranged through social work/case management prior to discharge. Const alert, oriented x3, no apparent distress and well nourished Constitutional Narrative: Obese, -[place], upper middle-aged, male, lying in bed talking on the phone, appears comfortable and nontoxic, currently on room air General Appearance: cooperative, comfortable, well kempt and well developed Orientation / Consciousness: awake, oriented to person, oriented to place and oriented to time HEENT normocephalic, head/scalp atraumatic, hearing grossly normal bilaterally and moist oral mucous membranes HEENT Narrative: Mallampati 3, thrush noted Eyes PERRL, EOMs intact bilaterally and conjunctivae normal Eyes Narrative: No scleral icterus Neck no lymphadenopathy, supple, no JVD and no carotid bruits Neck Narrative: Trachea midline, no thyroid enlargement Resp normal respiratory effort, no retractions, no use of accessory muscles and clear to auscultation bilaterally Resp Narrative: Diminished but clear Auscultation: Negative for rales, rhonchi or wheezes Cardio regular rate, regular rhythm, S1 normal heart sound, S2 normal heart sound, no murmurs, no rub, no gallops and no clicks GI normal to inspection, nondistended, normoactive bowel sounds, soft to palpation and non-tender Extremity no clubbing, cyanosis or edema Extremity Narrative: 2+ pedal pulses, 2+ radial pulses Skin no rashes or lesions noted, no wounds, skin turgor normal and no jaundice Neuro oriented x3, CN's II-XII intact bilaterally, moves all extremities, no focal motor deficits and no sensory deficits noted Neuro Narrative: Ambulates independently around the room Speech: speech normal Psych affect normal Psych Narrative: Very pleasant, appropriately interactive Weight / BMI Weight Weight: 124.3 kg Body Mass Index (BMI) 38.2 ABG / Lab / Microbiology Data Result Diagrams: 06/29/22 05:14 06/29/22 05:14 Laboratory: Laboratory Results - last 24 hr 06/29/22 05:14: Sodium 137, Potassium 3.9, Chloride 107, Carbon Dioxide 27.0, Anion Gap 3 L, BUN 25 H, Creatinine 1.54 H, Estim Creat Clear Calc 55.69, Est GFR (MDRD) Af Amer 60, Est GFR (MDRD) Non-Af 50 L, BUN/Creatinine Ratio 16.2, Glucose 210 H, Calcium 9.1, Triglycerides 60, Cholesterol 126, LDL Cholesterol 60, VLDL Cholesterol 12, HDL Cholesterol 54 06/29/22 05:14: WBC 9.3, RBC 4.28 L, Hgb 14.4, Hct 43.6, MCV 101.9 H, MCH 33.6 H, MCHC 33.0, RDW Std Deviation 66.1 H, RDW Coeff of Lizzie 18.0 H, Plt Count 191, MPV 11.4, Immature Gran % (Auto) 0.800, Neut % (Auto) 91.8 H, Lymph % (Auto) 2.9 L, [place] % (Auto) 4.4, Eos % (Auto) 0.0, Baso % (Auto) 0.1, Absolute Neuts (auto) 8.6 H, Absolute Lymphs (auto) 0.27 L, Nucleated RBC % 2.7, Differential Comment SCANNED, Anisocytosis 2+ Microbiology: Microbiology 06/28/22 00:50 Mucosa - Nose Respiratory Panel (PCR) - Final 06/27/22 23:30 Nasal Secretion SARS-CoV-2 Antigen (Rapid) - Final D/C Instructions Discharge Diet: 1800 Calorie Control Diet, 8 Cup Fluid Restriction and 4000 mg Sodium Diet Discharge Activity: Return to Normal Activity Meaningful Use Info Meaningful Use Diagnoses (Choose all that apply): CHF CHF NASRIN/ARB ordered at discharge?: Yes Documented LVEF (%): 40 Discharge Plan Admission Admit Date/Time: 06/28/22 00:14 Primary Reason for Your Visit: Shortness of breath Attending Provider: Carol Chiu Primary Care Provider: Jose Ramon Turner Consulting Providers: Pau Wei ; Estelita Lu Discharge Orders/Prescriptions Prescriptions: New nystatin 100,000 unit/mL suspension 100,000 unit PO DAILY Qty: 60 0RF Rx Instructions: administer 1/2 of dose in each side of the mouth Continued cyclobenzaprine 10 mg Tablet 10 mg PO TID PRN (Reason: Spasms) cabozantinib 20 mg Tablet 20 mg PO DAILY bumetanide 2 mg tablet 2 mg PO BID Qty: 60 0RF albuterol sulfate 2.5 mg /3 mL (0.083 %) solution for nebulization 2.5 mg inhalation PRN PRN (Reason: Shortness Of Breath) Qty: 75 0RF warfarin 10 mg Tablet 8 mg PO DAILY Qty: 30 0RF spironolactone 25 mg tablet 25 mg PO DAILY Qty: 30 0RF pantoprazole 40 mg tablet,delayed release (DR/EC) 40 mg PO DAILY Qty: 30 0RF ferrous sulfate 325 mg (65 mg iron) Tablet 325 mg PO BID Qty: 30 0RF rosuvastatin 40 mg Tablet 40 mg PO DAILY Qty: 30 0RF potassium chloride 20 mEq tablet extended release 20 meq PO DAILY Qty: 30 0RF Trelegy Ellipta 100-62.5-25 mcg blister with device 1 inh inhalation DAILY Qty: 28 0RF Changed losartan 50 mg tablet 50 mg PO DAILY Qty: 30 0RF carvedilol 12.5 mg tablet 18.75 mg PO BID Qty: 90 0RF Discontinued albuterol 90 mcg/actuation Aerosol 90 mcg INHALATION Q4H PRN PRN (Reason: breathing) furosemide [Lasix] 40 mg Tablet 40 mg PO DAILY Referrals / Follow Up: Jose Ramon Turner MD [Primary Care Provider] - 07/08/22 1:20 pm Disposition Disposition (needs filled in before D/C Order can be placed): Home, Self Care Charges/Coding Visit Charges Inpatient E&M: 21188 Disch Hosp >30min
--- NOTE | 2022-06-29 12:11 | CASEMGMT ---
Addendum entered by Rakel Santiago 06/29/22 12:39: JOHN ROQUE received update from [facility] that there are nebulizers available at [facility]. 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 Original Note: JOHN ROQUE Face to Face with patient for initial transition planning/care coordination assessment. JOHN ROQUE introduced self and role at [facility]. Patient lying in bed, alert and oriented. Patient willing to participate in assessment and is able to answer all questions appropriately. Care providers, pharmacy, and demographics verified. Patient wishes to discharge home, denies need for home health at this time. Patient states he has no further needs or concerns at this time. CM to follow for discharge planning needs that may arise. PCP: Johnny Specialists: Jimenez, engine lathe tender; Ayan, oncologist Preferred Pharmacy: [facility] Insurance: MMO Prescription Benefit: yes Living Will/HPOA: yes, Tyshawn Vega LNOK: Living Arrangements: Patient lives with in a single story home with no steps to enter the home. Patient states he is independent at home Transportation: self, DME/HHC: Patient states he has cpap and nebulizer at home. Patient states that both cpap and nebulizer are not working. Patient states he would like [facility] for DME. JOHN ROQUE explained that patient would need to follow-up with PCP for new cpap as it has been 4+ years since patient has had sleep study and may need new one, patient voiced understanding. JOHN ROQUE to assist patient with new nebulizer. Script received and sent to [facility] via [employer]. JOHN ROQUE reached out to [employer] Liaison [place] [facility]. Disposition Plan: Patient to discharge home with family support and follow-up plans in place. Rakel Santiago BSN, RN, CM
[2022-06-29 12:20] VITALS: BP 126/92; PULSE 68; RESP 18; TEMP 36.4; O2SAT 93
--- NOTE | 2022-06-29 12:37 | PHA.DC.MC ---
Pharmacy Service has performed discharge medication reconciliation and counseling for this patient. 1. NYSTATIN [id number] PO DAILY The patient's discharge medication list was reviewed for discrepancies and discrepancies were resolved. Home Medications cabozantinib 20 mg tablet 20 mg PO DAILY 12/07/21 cyclobenzaprine 10 mg tablet 10 mg PO TID PRN Spasms 12/07/21 albuterol sulfate 2.5 mg/3 mL (0.083 %) solution for nebulization 2.5 mg (3 mL) inhalation PRN PRN Shortness Of Breath #75 mL 06/29/22 bumetanide 2 mg tablet 2 mg PO BID #60 tabs 06/29/22 carvedilol 12.5 mg tablet 18.75 mg PO BID #90 tabs 06/29/22 ferrous sulfate 325 mg (65 mg iron) tablet 325 mg PO BID #30 tabs 06/29/22 fluticasone fur. 100 mcg-umeclid 62.5 mcg-vilant 25 mcg inhalat.powder (Trelegy Ellipta) 1 inh inhalation DAILY #28 ea 06/29/22 losartan 50 mg tablet 50 mg PO DAILY #30 tabs 06/29/22 nystatin 100,000 unit/mL oral suspension 100,000 unit PO DAILY #60 mL 06/29/22 pantoprazole 40 mg tablet,delayed release 40 mg PO DAILY gerd #30 tabs 06/29/22 potassium chloride 20 mEq tablet,extended release 20 meq PO DAILY #30 tabs 06/29/22 rosuvastatin 40 mg tablet 40 mg PO DAILY cholesterol #30 tabs 06/29/22 spironolactone 25 mg tablet 25 mg PO DAILY #30 tabs 06/29/22 warfarin 10 mg tablet 8 mg PO DAILY Check with primary doctor #30 tabs 06/29/22 The patient was counseled on the following discharge medications and changes in medications for homegoing were reviewed. The Reason for Use, instructions for use, and potential side effects were reviewed for all new medications. The patient's questions regarding all of their medications were answered. The patient was able to verbally demonstrate an understanding of their discharge medications.
== END 2022-06-29 14:06 | disposition home or self-care (01) | DRG 291 ==
LOC: ED 23:36 → PCU 06-28 00:22
PROVIDERS: Student in an Organized Health Care Education/Training Program; Admitting Provider Family Medicine; Emergency Provider Emergency Medicine; PCP Family Medicine; Visit Provider Internal Medicine
DX: I13.0 Hypertensive heart and chronic kidney disease with heart failure and stage 1 through stage 4 chronic kidney disease, or unspecified chronic kidney disease (principal); I50.23 Acute on chronic systolic (congestive) heart failure; C79.51 Secondary malignant neoplasm of bone; J44.1 Chronic obstructive pulmonary disease with (acute) exacerbation; C64.9 Malignant neoplasm of unspecified kidney, except renal pelvis; D50.9 Iron deficiency anemia, unspecified; F17.210 Nicotine dependence, cigarettes, uncomplicated; Z79.01 Long term (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 of 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; I48.0 Paroxysmal atrial fibrillation; N18.31 Chronic kidney disease, stage 3a; E78.5 Hyperlipidemia, unspecified; G47.33 Obstructive sleep apnea (adult) (pediatric); K21.9 Gastro-esophageal reflux disease without esophagitis; I25.10 Atherosclerotic heart disease of native coronary artery without angina pectoris; R91.8 Other nonspecific abnormal finding of lung field; Z79.51 Long term (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 of inhaled steroids; Z92.21 Personal history of antineoplastic chemotherapy; Z90.5 Acquired absence of kidney; Z79.82 Long term (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 of aspirin
CPT/HCPCS: 36415; 71046; 80048; 80053; 80061; 83735; 83880; 84100; 84145; 84443; 84484; 85025; 85610; 85730; 87426; 87633; 93005; 94640; 94668; 97802; 99284; A4216; J1940

== ENCOUNTER → 2022-07-16 | Outpatient (CLI) | payer OTHER, SELFPAY ==
--- NOTE | 2022-07-16 14:19 | PFTCOMP ---
COMPLETE PULMONARY FUNCTION TEST INTERPRETATION Brief HPI: Patient is a 57-year-old Black male, currently under the care of Dr. Turner, who presents to [facility] for complete pulmonary function tests secondary to diagnosis of dyspnea. Respiratory therapist reports good effort and reproducible results. Interpretation: Forced expiration spirometry shows no large airways obstructive ventilatory defect with an FEV1 of 74% predicted. There is no significant bronchodilator response by strict ATS criteria. Spirograms are of good quality and plateau normally. The respiratory flow volume loop shows a normal pattern. Lung volumes by body plethysmography show a decreased total lung capacity at 4.98 L, 72% predicted. All other lung volumes are reduced symmetrically. Diffusion capacity by carbon monoxide is decreased at 71% predicted. The airway resistance is elevated. No previous pulmonary function tests were available for review. Impression: Irreversible mild restrictive ventilatory defect with a symmetric reduction diffusion capacity
== END | disposition home or self-care (01) ==
LOC: PSN 12:51
PROVIDERS: PCP Family Medicine; Referring Provider Family Medicine; Visit Provider Family Medicine
DX: Z09 Encounter for follow-up examination after completed treatment for conditions other than malignant neoplasm (principal)
CPT/HCPCS: 94060; 94726; 94729

== ENCOUNTER → 2022-09-01 | Outpatient (CLI) | payer OTHER, SELFPAY ==
--- NOTE | 2022-09-01 12:41 | CT_ITS ---
STUDY: CT CHEST, ABDOMEN T PELVIS WITHOUT CONTRAST REASON FOR EXAM: Male, 57 years old. MONITOR RENAL CA, HISTORY OF RIGHT NEPHRECTOMY AND RIB METS BONE METS RADIATION DOSAGE (If Supplied By Facility): CTDIvol = ( 24.11 ) mGy, DLP = ( 2118.86 ) mGycm TECHNIQUE: Transaxial imaging was performed without the administration of intravenous contrast material. Multiplanar coronal and sagittal images were reformatted. Individualized dose optimization techniques were used for this CT. COMPARISON: Comparison is made with prior CT scan of the thorax dated December 07, 2021. FINDINGS: CHEST Increased interstitial markings with areas of confluence is seen in the anterior lateral aspect of the right middle lobe abutting the destructive mass deep to the right ribs as described most likely representing possible post radiation fibrosis. Tiny right pleural effusion. There are calcifications of the coronary arteries. There are multiple small lymph nodes within the mediastinum, which are normal in size and morphology most compatible with reactive lymph hyperplasia. Normal hilar regions. Normal unenhanced pulmonary arteries. There is atherosclerotic calcification of the aortic arch. 3.9 cm by 6.7 cm soft tissue mass causing bony destruction in the anterior lateral aspect of the right seventh rib suggestive of metastatic deposits. There is no demonstrated abnormality of the visualized upper abdomen. ABDOMEN Normal liver. Normal gallbladder and extrahepatic biliary system. Normal spleen. Normal pancreas. Normal bilateral adrenal glands. The patient is status post right nephrectomy. Normal left kidney. Normal visualized stomach. Normal small intestine. Normal colon. The appendix is visualized and appears normal. There is diffuse atherosclerotic calcification of the abdominal aorta. Aneurysmal dilatation of the infrarenal abdominal aorta with a transverse dimension of 4 cm. Mildly dilated proximal common iliac arteries bilaterally. Normal inferior vena cava. Normal retroperitoneum. Normal abdominal wall. There is destruction and expansile deformity of the spinous process of the L4 vertebrae. Metastatic disease should be ruled out. PELVIS Normal urinary bladder. Normal visualized small intestine. Normal visualized colon. There is no pelvic fluid. There is no pelvic lymphadenopathy or mass lesion. There is diffuse atherosclerotic calcification of the pelvic arteries with elongation and tortuosity. CT/CT Chest, Abd, Pelvis WO Cont IMPRESSION: 3.9 sign by 6.7 sinus soft tissue mass causing bony destruction in the anterior lateral aspect of the right seventh rib. Bony destruction of the spinous process of the L4 vertebrae. Status post right nephrectomy. Tiny right pleural effusion. Mildly dilated infrarenal abdominal aorta. Electronically Signed: Tom Raymond MD at 14:48 EDT ,
== END | disposition home or self-care (01) ==
LOC: CT 12:40
PROVIDERS: PCP Family Medicine; Referring Provider Internal Medicine Medical Oncology; Visit Provider Internal Medicine Medical Oncology
DX: D64.9 Anemia, unspecified (principal); C79.51 Secondary malignant neoplasm of bone
CPT/HCPCS: 71250; 74176

== ENCOUNTER → 2022-11-12 | Outpatient (CLI) | payer OTHER, SELFPAY ==
[2022-11-12 17:54] LABS: Hematocrit 42.9 % (40-54); Hemoglobin 14.2 g/dL (13.0-16.5); Mean Corp Hgb Conc 33.1 g/dL (32-36); Mean Corpuscular Hgb 34.8 pg (27.0-32.0); Mean Corpuscular Volume 105.1 fL (80-94); Mean Platelet Vol. 10.9 fl (6.2-12.0); POSITIVE MORPHOLOGY YES; Platelet Count 242 K/mm3 (150-450); RBC Distribution Width CV 17.9 % (11.6-14.6); RBC Distribution Width SD 69.2 fl (35.1-43.9); Red Blood Count 4.08 M/mm3 (4.6-6.2); White Blood Count 5.4 K/mm3 (4.4-11.0)
[2022-11-12 17:58] LABS: Scan Indicated on CBC? Y/N YES- FLAGS NOTED
[2022-11-12 18:30] LABS: Differential Comment SCANNED
[2022-11-12 18:31] LABS: Anion Gap 5 (5-15); BUN 17 mg/dL (7-18); BUN/Creat Ratio 9.8 RATIO (10-20); Chloride 106 mmol/L (98-107); Creatinine, Serum 1.73 mg/dL (0.70-1.30); EST Glomerular Filtration Rate 43 mL/min (>60); Est Glom Filt Rate - Afr Amer 52 mL/min (>60); Glucose 89 mg/dL (74-106); Potassium 3.9 mmol/L (3.5-5.1); Sodium Level 138 mmol/L (136-145)
[2022-11-12 18:52] LABS: BNP,B-Type NATRIURETIC PEPTIDE 255.5 pg/mL (0-100)
== END | disposition home or self-care (01) ==
LOC: MTLAB 14:28
PROVIDERS: PCP Family Medicine; Visit Provider Family Medicine
DX: I50.9 Heart failure, unspecified (principal); I48.91 Unspecified atrial fibrillation
CPT/HCPCS: 36415; 80048; 83880; 85027

== ENCOUNTER 2022-12-15 12:22 | Observation (INO) | payer OTHER, SELFPAY ==
[2022-12-15] VITALS (10 sets, daily range): BP systolic 102–138; BP diastolic 71–120; PULSE 74–125; RESP 14–24; TEMP 35.5–36.9; O2SAT 90–98; BMI 38.9; BMI 83.0
--- NOTE | 2022-12-15 12:58 | EKG12_ITS ---
Test Reason : CP Blood Pressure : / mmHG Vent. Rate : 089 BPM Atrial Rate : 000 BPM P-R Int : 000 ms QRS Dur : 090 ms QT Int : 340 ms P-R-T Axes : 000 060 041 degrees QTc Int : 413 ms Atrial fibrillation with premature ventricular or aberrantly conducted complexes Abnormal ECG Confirmed by RODRICK CLEMENT, OSITO ([id number]), editor greeting card HARSHA GUILLAUME ([id number]) on 12/16/2022 11:00:38 AM Referred By: Confirmed By:OSITO MENSAH MD
--- NOTE | 2022-12-15 13:09 | EDS_ITS ---
HPI History of Present Illness Chief Complaint: Palpitations Informant: patient and spouse/S.O. Associated Symptoms cough Chest Pain: Positive for None Narrative Narrative: 57-year-old male with a history of renal cell carcinoma status post nephrectomy as well as systolic congestive heart failure, states that for the past 3 or 4 days he has had cough, subjective fever, occasional minor hemoptysis, chest tightness, wheezing/dyspnea. 2 days ago he felt himself go into A-fib which she has a history of, he is usually in a sinus rhythm, and he has not felt like he went out of it since so he presents because everything is worse. He has orthopnea. No leg edema. Does not think he has been drinking more fluids than usual or any excessive amounts of salt, he has been using albuterol at home for his dyspnea and it has been helping it temporarily and partially. He has wheezed with illness in the past but does not have COPD that he knows of. He is on oxygen at home, the states the first day, when the patient states he was not nearly as bad, he had 1 episode of hypoxemia at 60% based on their home pulse oximeter. PFSH PFSH Medical History Atrial fibrillation Atrial fibrillation CKD (chronic kidney disease) CKD (chronic kidney disease), stage III COPD (chronic obstructive pulmonary disease) GERD (gastroesophageal reflux disease) Hyperlipidemia Hypertension Metastatic renal cell carcinoma to bone NIMCO on CPAP Renal cell cancer Systolic CHF Tobacco use Home Medications cyclobenzaprine 10 mg tablet 10 mg PO TID PRN Spasms 12/07/21 [History Last Taken Unknown] albuterol sulfate 2.5 mg/3 mL (0.083 %) solution for nebulization 2.5 mg (3 mL) inhalation PRN PRN Shortness Of Breath #75 mL 06/29/22 [Rx Last Taken Unknown] ferrous sulfate 325 mg (65 mg iron) tablet 325 mg PO BID #30 tabs 06/29/22 [Rx Last Taken Unknown] fluticasone fur. 100 mcg-umeclid 62.5 mcg-vilant 25 mcg inhalat.powder (Trelegy Ellipta) 1 inh inhalation DAILY #28 ea 06/29/22 [Rx Last Taken Unknown] nystatin 100,000 unit/mL oral suspension 100,000 unit PO DAILY #60 mL 06/29/22 [Rx Last Taken Unknown] pantoprazole 40 mg tablet,delayed release 40 mg PO DAILY gerd #30 tabs 06/29/22 [Rx Last Taken Unknown] potassium chloride 20 mEq tablet,extended release 20 meq PO DAILY #30 tabs 06/29/22 [Rx Last Taken Unknown] rosuvastatin 40 mg tablet 40 mg PO DAILY cholesterol #30 tabs 06/29/22 [Rx Last Taken Unknown] warfarin 10 mg tablet 8 mg (0.8 x 10 mg) PO DAILY Check with primary doctor #30 tabs 06/29/22 [Rx Last Taken Unknown] bumetanide 2 mg tablet 2 mg PO BID #180 tabs 09/29/22 [Rx Last Taken Unknown] cabozantinib 20 mg tablet 20 mg PO DAILY 09/29/22 [History Last Taken Unknown] carvedilol 12.5 mg tablet 18.75 mg PO BID 09/29/22 [History Last Taken Unknown] losartan 50 mg tablet 50 mg PO DAILY #90 tabs 09/29/22 [Rx Last Taken Unknown] spironolactone 25 mg tablet 25 mg PO DAILY #90 tabs 09/29/22 [Rx Last Taken Unknown] Allergy/AdvReac Type Severity Reaction Status Date / Time lisinopril Allergy Severe Angioedema Verified 12/15/22 12:22 guaifenesin [From Mucinex] Allergy Intermediate Bleeding Verified 12/15/22 12:25 aspirin [ASA] Allergy Other Verified 12/15/22 12:22 mushroom [mushrooms] Allergy Hives Verified 12/15/22 12:22 Penicillins Allergy PT UNSURE Verified 12/15/22 12:22 OF REACTION shellfish derived Allergy Hives Verified 12/15/22 12:22 Family History Father Cancer Mother Heart disease Hypertension Myocardial infarction Surgical History History of cardiac cath (~07/2021) History of cardioversion (~09/2021) History of nephrectomy, right Social History household members: spouse and family Smoking Status: Current every day smoker tobacco type: cigars Electronic Cigarette Use: with nicotine alcohol intake: current alcohol intake frequency: a few times a month substance use type: does not use ROS ROS ED Constitutional Constitutional ED: Reports body ache(s), chills, fatigue, fever(s), headache(s) and malaise Eyes Eyes: Denies change in vision or diplopia ENT ENT ED: Denies rhinorrhea or sore throat Cardiovascular Cardiovascular: Denies chest pain or palpitations Respiratory/Chest Respiratory/Chest: Reports cough, dyspnea and dyspnea on exertion Gastrointestinal Gastrointestinal: Reports diarrhea; Denies abdominal pain, nausea or vomiting Genitourinary Genitourinary ED: Denies dysuria or hematuria Musculoskeletal Musculoskeletal: Denies back pain or neck pain Integumentary Denies abscess or rash Neurologic Neurologic: Reports headache(s); Denies paresthesias or weakness Psychiatric Psychiatric: Denies anxiety or suicidal thoughts EXAM Physical Exam Const Vital Signs: 12/15/22 12:23 12/15/22 12:30 12/15/22 13:10 Temperature 96 F L Temperature Source Temporal Pulse Rate 125 H Respiratory Rate 24 H Respiratory Effort Short of Breath Respiratory Pattern Blood Pressure 132/120 H Blood Pressure Mean 124 Pulse Ox 90 98 Oxygen Delivery Method Room Air Nasal Cannula Oxygen Flow Rate (L/min) 3 12/15/22 13:21 12/15/22 13:21 12/15/22 13:32 Temperature Temperature Source Pulse Rate 91 74 Respiratory Rate 14 16 Respiratory Effort Respiratory Pattern Normal Blood Pressure 124/83 H Blood Pressure Mean 96 Pulse Ox 98 95 Oxygen Delivery Method Nasal Cannula Nasal Cannula Oxygen Flow Rate (L/min) 3 3 12/15/22 14:51 Temperature Temperature Source Pulse Rate 75 Respiratory Rate 18 Respiratory Effort Respiratory Pattern Blood Pressure 102/71 Blood Pressure Mean 81 Pulse Ox 98 Oxygen Delivery Method Room Air Oxygen Flow Rate (L/min) Positive well nourished and well developed Constitutional Narrative: Malaised-appearing, no distress General Appearance ED: well developed and NAD HEENT Reports moist mucous membranes normocephalic and atraumatic Eyes PERRL and EOMs intact bilaterally Neck full ROM, no lymphadenopathy, supple, no meningeal signs and no JVD Resp Resp Narrative: Tachypnea without acute respiratory distress. Diffuse expiratory wheezes. Otherwise clear. Cardio no murmurs Rate: tachycardic Rhythm: abnormal rhythm irregularly irregular GI non-tender and non-distended Auscultation: normoactive bowel sounds Palpation: soft Back/Spine no CVA tenderness General Back: other FROM Extremity normal to inspection and no calf tenderness General Extremety ED: Negative for edema, pulses abnormal or tenderness General Extremity: Negative for edema or pulses abnormal Neuro oriented x3, CN's II-XII intact bilaterally and no sensory deficits noted Sensorium / Orientation: awake and alert Motor Exam: strength 5/5 throughout Psych mental status grossly normal Skin no rashes or lesions noted and no wounds MDM MDM MDM Narrative Medical decision making narrative: Differential includes congestive heart failure, bronchitis with wheezing, pneumonia. 2 view chest x-ray mitral rotation does show the radiopaque right chest wall mass that he has had on prior imaging as well as superimposed infiltrate, radiology in agreement. He does not have a significant leukocytosis, but given his symptoms of fevers minor hemoptysis I suspect this is more pneumonia/infection. His BNP is higher than it had been in the past but so is his creatinine. He does have a predilection of neutrophils on the CBC, more consistent with infection. I think treating him for both is more reasonable. His atrial fibrillation was rate controlled at times but tachycardic the majority of the time so prior to giving him albuterol/Atrovent he was given Cardizem 20 mg IV, this did help to rate control him and his pressure maintained 102/71 at its gonsalo, and he felt a little better after the breathing treatment. However with ambulation, he cannot make it very far before he has to rest, he went down to 86% although this is room air. On further discussions he has oxygen at home that he has been told to use 24/7 now with 3 L so I am not as concerned about the hypoxemia on room air, however he states he is really struggling to breathe and if he does more albuterol at home he will likely be in A-fib with RVR, I think admission is most appropriate given his respiratory insufficiency is the main reason for that. Started on antibiotics and also given a dose of Bumex IV here. History & Record Review Additional record(s) reviewed:: Prior outpatient record (Last echo in April, ejection fraction 40%, no major valvular issues.) Lab Data Attestation: I reviewed the patient's lab results. Labs: Laboratory Results - last 24 hr 12/15/22 12:41 WBC 7.6 RBC 4.01 L Hgb 14.0 Hct 42.4 MCV 105.7 H MCH 34.9 H MCHC 33.0 RDW Std Deviation 70.7 H RDW Coeff of Lizzie 18.0 H Plt Count 173 MPV 11.2 Immature Gran % (Auto) 0.400 Neut % (Auto) 87.2 H Lymph % (Auto) 7.4 L [place] % (Auto) 4.6 Eos % (Auto) 0.1 Baso % (Auto) 0.3 Absolute Neuts (auto) 6.6 Absolute Lymphs (auto) 0.56 L Nucleated RBC % 0.4 PT 25.4 H INR 2.3 Sodium 137 Potassium 4.9 Chloride 109 H Carbon Dioxide 24.0 Anion Gap 4 L BUN 19 H Creatinine 1.92 H Estim Creat Clear Calc 44.67 Est GFR (MDRD) Af Amer 46 L Est GFR (MDRD) Non-Af 38 L BUN/Creatinine Ratio 9.9 L Glucose 107 H Calcium 9.0 Troponin I High Sens 40 B-Natriuretic Peptide 574.1 H Radiography Chest X-Ray - ED: 2 View, Read by ED Physician and Right Infiltrate Diagnostic Testing: Clinical Impression(s) from Imaging Studies Chest X-Ray 12/15/22 13:13 IMPRESSION: Similar-appearing right pleural base mass compared to prior with superimposed areas of infiltrate/pneumonia within the right lower lobe and right middle lobe not excluded, clinically correlate. Electronically Signed: Jose Turner DO at 13:37 EDT , Rhythm Strip Rhythm Strip: A-fib Rate: 120 Ectopy: None EKG Initial EKG: Attestation: I personally reviewed and interpreted this EKG as follows: Interpretation: No Acute Injury Pattern and Atrial Fibrillation Prior EKG tracings: available for review Prior: Unchanged Management Discussion w/another healthcare provider: Hospitalist Discharge Plan Triage Chief Complaint: Palpitations Other Complaint: Chest Pain ED Provider: Speedy Bass Dx/Rx/DC Orders Clinical Impression: Hemoptysis, Acute respiratory insufficiency, Acute systolic heart failure, Chronic a-fib, Acute on chronic renal insufficiency, Warfarin-induced coagulopathy, Pneumonia Prescriptions: No Action carvedilol 12.5 mg tablet 18.75 mg PO BID spironolactone 25 mg tablet 25 mg PO DAILY Qty: 90 3RF bumetanide 2 mg tablet 2 mg PO BID Qty: 180 3RF losartan 50 mg tablet 50 mg PO DAILY Qty: 90 3RF cyclobenzaprine 10 mg Tablet 10 mg PO TID PRN (Reason: Spasms) cabozantinib 20 mg tablet 20 mg PO DAILY albuterol sulfate 2.5 mg /3 mL (0.083 %) solution for nebulization 2.5 mg inhalation PRN PRN (Reason: Shortness Of Breath) Qty: 75 0RF warfarin 10 mg Tablet 8 mg PO DAILY Qty: 30 0RF pantoprazole 40 mg tablet,delayed release (DR/EC) 40 mg PO DAILY Qty: 30 0RF ferrous sulfate 325 mg (65 mg iron) Tablet 325 mg PO BID Qty: 30 0RF rosuvastatin 40 mg Tablet 40 mg PO DAILY Qty: 30 0RF potassium chloride 20 mEq tablet extended release 20 meq PO DAILY Qty: 30 0RF Trelegy Ellipta 100-62.5-25 mcg blister with device 1 inh inhalation DAILY Qty: 28 0RF nystatin 100,000 unit/mL suspension 100,000 unit PO DAILY Qty: 60 0RF Rx Instructions: administer 1/2 of dose in each side of the mouth Primary Care Provider: Jose Ramon Turner Referrals: Jose Ramon Turner MD [Primary Care Provider] - Disposition Disposition: Acute Care [facility]
--- NOTE | 2022-12-15 13:13 | RAD_ITS ---
STUDY: X-RAY CHEST REASON FOR EXAM: Male, 57 years old. cough sob cp TECHNIQUE: PA and lateral views of the chest. COMPARISON: 09/01/2022 CT chest FINDINGS: Hyperinflation with flattening of the diaphragm consistent with COPD related changes. Airspace disease overlies the region of the right lower lobe and right middle lobe. Similar-appearing pleural-based smooth bordered mass is present. There is borderline cardiomegaly. Normal mediastinum and tesha. Normal visualized pulmonary arteries. Normal visualized aortic arch and descending thoracic aorta. Normal visualized thoracic spine. Normal visualized ribs, clavicles, and shoulders. There is no demonstrated abnormality of the visualized soft tissue structures of the upper abdomen. RAD/Chest PA and Lateral IMPRESSION: Similar-appearing right pleural base mass compared to prior with superimposed areas of infiltrate/pneumonia within the right lower lobe and right middle lobe not excluded, clinically correlate. Electronically Signed: Jose Turner DO at 13:37 EDT ,
[2022-12-15 13:15] LABS: Absolute Lymphocyte Count 0.56 X10^3/uL (0.83-4.51); Absolute Neutrophil Count 6.6 X10^3/uL (2.0-7.7); Basophil# 0.02 X10^3/uL; Basophil% 0.3 % (0-1); Eosinophil# 0.01 X10^3/uL; Eosinophils% 0.1 % (0-5); Hematocrit 42.4 % (40-54); Lymphocyte # 0.56 X10^3/ul (0.83-4.51); Lymphocyte % 7.4 % (19-41); Mean Corpuscular Hgb 34.9 pg (27.0-32.0); Mean Corpuscular Volume 105.7 fL (80-94); Mean Platelet Vol. 11.2 fl (6.2-12.0); Monocyte# 0.35 X10^3/uL; Monocyte% 4.6 % (0-10); NRBC Flagged by Analyzer 0.4 % (0-5); Neutrophil # 6.64 X10^3/uL (2.7-7.7); Neutrophil % 87.2 % (47-70); POSITIVE DIFFERENTIAL YES; POSITIVE MORPHOLOGY YES; Platelet Count 173 K/mm3 (150-450); RBC Distribution Width SD 70.7 fl (35.1-43.9); Red Blood Count 4.01 M/mm3 (4.6-6.2); White Blood Count 7.6 K/mm3 (4.4-11.0)
[2022-12-15 13:17] LABS: Differential Indicated SCAN CRITERIA MET
[2022-12-15] MEDS: Ipratropium/Albuterol Sulfate 3 ML AMPUL.NEB INHALATION (13:19)
[2022-12-15 13:20] LABS: International Normalized Ratio 2.3; Prothrombin Time (Protime)PT. 25.4 SECONDS (11.7-14.9)
[2022-12-15] MEDS: dilTIAZem 25 MG/5 ML Vial 20 MG IV BOLUS (13:24)
[2022-12-15 13:37] LABS: Anion Gap 4 (5-15); BUN 19 mg/dL (7-18); BUN/Creat Ratio 9.9 RATIO (10-20); Chloride 109 mmol/L (98-107); Creatinine, Serum 1.92 mg/dL (0.70-1.30); EST Glomerular Filtration Rate 38 mL/min (>60); Est Glom Filt Rate - Afr Amer 46 mL/min (>60); Estimated Creatinine Clearance 44.67 ml/min; Glucose 107 mg/dL (74-106); Potassium 4.9 mmol/L (3.5-5.1); Sodium Level 137 mmol/L (136-145); Troponin-I HS 40 pg/mL (3.0-78.0)
[2022-12-15 13:38] LABS: BNP,B-Type NATRIURETIC PEPTIDE 574.1 pg/mL (0-100)
--- NOTE | 2022-12-15 15:31 | NURSING ---
PCU KO RESP INSUFFICIENCY, PNEUMONIA, CHF
[2022-12-15] MEDS: levoFLOXacin IV 750 MG/150 ML BAG 100 MG IV (15:55)
[2022-12-15] MEDS: Bumetanide 1 MG/4 ML Vial 2 MG IV (15:55)
--- NOTE | 2022-12-15 16:48 | PCM.HP.STD ---
HPI - General General Date of Admission: 12/15/22 HPI Narrative YEFRI YANEZ, is a 57 M who presents to the hospital with increased shortness of breath. He states that he supposed be wearing his oxygen at home all the time but he wears it only as needed. He does have a history of systolic CHF with an EF of 40% on an echo back in April of this year chest x-ray today demonstrated a continued right-sided chest wall mass from his metastatic renal cancer but with a superimposed consolidation consistent with pneumonia, he does not have a leukocytosis and he is not febrile. He has had similar issues in the past, and he is currently on immunotherapy for his renal cancer. Also of note in the ED his BNP was elevated at 574, but earlier in November it was down to 220. PFSH Medical History Atrial fibrillation Atrial fibrillation CKD (chronic kidney disease) CKD (chronic kidney disease), stage III COPD (chronic obstructive pulmonary disease) GERD (gastroesophageal reflux disease) Hyperlipidemia Hypertension Metastatic renal cell carcinoma to bone NIMCO on CPAP Renal cell cancer Systolic CHF Tobacco use Home Medications cyclobenzaprine 10 mg tablet 10 mg PO TID PRN Spasms 12/07/21 [History Last Taken Unknown] albuterol sulfate 2.5 mg/3 mL (0.083 %) solution for nebulization 2.5 mg (3 mL) inhalation PRN PRN Shortness Of Breath #75 mL 06/29/22 [Rx Last Taken Unknown] ferrous sulfate 325 mg (65 mg iron) tablet 325 mg PO BID #30 tabs 06/29/22 [Rx Last Taken Unknown] fluticasone fur. 100 mcg-umeclid 62.5 mcg-vilant 25 mcg inhalat.powder (Trelegy Ellipta) 1 inh inhalation DAILY #28 ea 06/29/22 [Rx Last Taken Unknown] nystatin 100,000 unit/mL oral suspension 100,000 unit PO DAILY #60 mL 06/29/22 [Rx Last Taken Unknown] pantoprazole 40 mg tablet,delayed release 40 mg PO DAILY gerd #30 tabs 06/29/22 [Rx Last Taken Unknown] potassium chloride 20 mEq tablet,extended release 20 meq PO DAILY #30 tabs 06/29/22 [Rx Last Taken Unknown] rosuvastatin 40 mg tablet 40 mg PO DAILY cholesterol #30 tabs 06/29/22 [Rx Last Taken Unknown] warfarin 10 mg tablet 8 mg (0.8 x 10 mg) PO DAILY Check with primary doctor #30 tabs 06/29/22 [Rx Last Taken Unknown] bumetanide 2 mg tablet 2 mg PO BID #180 tabs 09/29/22 [Rx Last Taken Unknown] cabozantinib 20 mg tablet 20 mg PO DAILY 09/29/22 [History Last Taken Unknown] carvedilol 12.5 mg tablet 18.75 mg PO BID 09/29/22 [History Last Taken Unknown] losartan 50 mg tablet 50 mg PO DAILY #90 tabs 09/29/22 [Rx Last Taken Unknown] spironolactone 25 mg tablet 25 mg PO DAILY #90 tabs 09/29/22 [Rx Last Taken Unknown] Allergy/AdvReac Type Severity Reaction Status Date / Time lisinopril Allergy Severe Angioedema Verified 12/15/22 12:22 guaifenesin [From Mucinex] Allergy Intermediate Bleeding Verified 12/15/22 12:25 aspirin [ASA] Allergy Other Verified 12/15/22 12:22 mushroom [mushrooms] Allergy Hives Verified 12/15/22 12:22 Penicillins Allergy PT UNSURE Verified 12/15/22 12:22 OF REACTION shellfish derived Allergy Hives Verified 12/15/22 12:22 Family History Father Cancer Mother Heart disease Hypertension Myocardial infarction Surgical History History of cardiac cath (~07/2021) History of cardioversion (~09/2021) History of nephrectomy, right Social History household members: spouse and family Smoking Status: Current every day smoker tobacco type: cigars Electronic Cigarette Use: with nicotine alcohol intake: current alcohol intake frequency: a few times a month substance use type: does not use ROS Constitutional Constitutional: Reports chills, fatigue and fever(s); Denies malaise Eyes Eyes: Denies blurry vision ENT HEENT: Denies headache(s) or nasal discharge Cardiovascular Cardiovascular: Reports orthopnea; Denies chest pain, dyspnea on exertion or syncope Respiratory/Chest Respiratory/Chest: Reports cough; Denies shortness of breath at rest or shortness of breath with exertion Gastrointestinal Gastrointestinal: Denies constipation, diarrhea, nausea or vomiting Genitourinary Genitourinary: Denies dysuria Neurologic Neurologic: Denies focal weakness, numbness or tremor(s) Psychiatric Psychiatric: Denies anxiety or depression Vital Signs Vital Signs Vital Signs: 12/15/22 12:23 12/15/22 12:30 12/15/22 13:10 Temperature 96 F L Temperature Source Temporal Pulse Rate 125 H Respiratory Rate 24 H Respiratory Effort Short of Breath Respiratory Pattern Blood Pressure 132/120 H Blood Pressure Mean 124 Blood Pressure Source Blood Pressure Position Blood Pressure Location Pulse Ox 90 98 Oxygen Delivery Method Room Air Nasal Cannula Oxygen Flow Rate (L/min) 3 12/15/22 13:21 12/15/22 13:21 12/15/22 13:32 Temperature Temperature Source Pulse Rate 91 74 Respiratory Rate 14 16 Respiratory Effort Respiratory Pattern Normal Blood Pressure 124/83 H Blood Pressure Mean 96 Blood Pressure Source Blood Pressure Position Blood Pressure Location Pulse Ox 98 95 Oxygen Delivery Method Nasal Cannula Nasal Cannula Oxygen Flow Rate (L/min) 3 3 12/15/22 14:51 12/15/22 16:00 12/15/22 16:36 Temperature 98.4 F 98.5 F Temperature Source Temporal Pulse Rate 75 86 80 Respiratory Rate 18 18 18 Respiratory Effort Respiratory Pattern Blood Pressure 102/71 138/104 H 115/82 H Blood Pressure Mean 81 115 93 Blood Pressure Source Monitor Blood Pressure Position Semi-Fowlers Blood Pressure Location Left Forearm Pulse Ox 98 95 98 Oxygen Delivery Method Room Air Nasal Cannula Oxygen Flow Rate (L/min) 3 Weight Weight: 595 lb 0.442 oz Body Mass Index (BMI) 83.0 Physical Exam Narrative General: Alert, Oriented x3, Cooperative, No apparent distress HEENT: Atraumatic, PERRLA, EOMI, Normocephalic Oral: Moist Mucosa Neck: Supple, No JVD Lungs: Diminished worse on the right than the left, Normal air movement, No rhonchi, wheeze, No rales Cardiovascular: Regular rate, Regular Rhythm, Normal S1, Normal S2, No murmurs Abdomen: Soft, Non Tender, Non-Distended, No Hepato-splenomegaly Extremities: No edema, Capillary Refill Less than 3 Seconds Skin: No rashes, No breakdown Musculoskeletal: No Tenderness to Palpation of Joints or Extremities Neurological: Cranial nerves II-XII grossly intact, Motor Exam 5/5 strength throughout, Sensory exam intact to light touch and pain Psych/Mental Status: Normal Affect, Appropriate Results Lab / Micro Data 12/15/22 12:41 12/15/22 12:41 Labs: Laboratory Results - last 24 hr 12/15/22 12:41: WBC 7.6, RBC 4.01 L, Hgb 14.0, Hct 42.4, MCV 105.7 H, MCH 34.9 H, MCHC 33.0, RDW Std Deviation 70.7 H, RDW Coeff of Lizzie 18.0 H, Plt Count 173, MPV 11.2, Immature Gran % (Auto) 0.400, Neut % (Auto) 87.2 H, Lymph % (Auto) 7.4 L, [place] % (Auto) 4.6, Eos % (Auto) 0.1, Baso % (Auto) 0.3, Absolute Neuts (auto) 6.6, Absolute Lymphs (auto) 0.56 L, Nucleated RBC % 0.4, PT 25.4 H, INR 2.3, Sodium 137, Potassium 4.9, Chloride 109 H, Carbon Dioxide 24.0, Anion Gap 4 L, BUN 19 H, Creatinine 1.92 H, Estim Creat Clear Calc 44.67, Est GFR (MDRD) Af Amer 46 L, Est GFR (MDRD) Non-Af 38 L, BUN/Creatinine Ratio 9.9 L, Glucose 107 H, Calcium 9.0, Troponin I High Sens 40, B-Natriuretic Peptide 574.1 H Rhythm Strip Rhythm Strip: A-fib Rate: 120 Ectopy: None Radiology Impression Chest X-Ray 12/15/22 13:13 IMPRESSION: Similar-appearing right pleural base mass compared to prior with superimposed areas of infiltrate/pneumonia within the right lower lobe and right middle lobe not excluded, clinically correlate. Electronically Signed: Jose Turner DO at 13:37 EDT , Assessment & Plan Assessment/Plan (1) Pneumonia: PLAN: Plan 1. Community-acquired pneumonia superimposed on metastatic renal cancer status post right nephrectomy with a right chest wall mass/chronic hypoxic respiratory failure from COPD and NIMCO/CKD 3A ? Can resume his home immunotherapy, will continue on Levaquin p.o. every 48 hours ? We will obtain a Legionella and strep urine antigen ? We will try to obtain a sputum culture if possible ? He is supposed to be on chronic oxygen so we will place him on his home dose of 2 to 3 L nasal cannula, he develops significant respiratory distress with ambulation though he does appear fairly comfortable when laying in bed which is where the physical exam took place however I did witness nursing helping him to the bathroom and he did become significantly short of breath and currently speaking 3 word sentences and appeared tachypneic and his oxygen saturations went to 85% ? His renal function does appear to be at baseline ? Continue with his home albuterol 2. Chronic systolic CHF/HTN/chronic A-fib/HLD ? Blood pressures are currently stable monitor ? Can resume his home Coreg and Aldactone ? We will place on IV Bumex with a fluid restriction ? We will continue with his Coumadin and recheck an INR in the morning current INR of 2.3 3. GERD ? Stable ? Continue with PPI DVT: Coumadin Charges/Coding Visit Charges Inpatient E&M: 96112 Init Hosp L3
[2022-12-15] MEDS: Ferrous Sulfate 325 MG Tablet PO (17:30)
[2022-12-15] MEDS: Carvedilol 12.5 MG Tablet 18.75 MG PO (17:30)
[2022-12-15] MEDS: Atorvastatin Calcium 80 MG Tablet PO (20:07)
--- NOTE | 2022-12-15 20:55 | CPS ---
Pt was placed on sleep lab CPAP machine with 3 lpm O2 bleed in.
[2022-12-16] VITALS (7 sets, daily range): BP systolic 124–156; BP diastolic 81–102; PULSE 77–80; RESP 16–18; TEMP 36.4–37.1; O2SAT 94–100; BMI 37.8
[2022-12-16 06:37] LABS: Absolute Lymphocyte Count 0.71 X10^3/uL (0.83-4.51); Absolute Neutrophil Count 4.4 X10^3/uL (2.0-7.7); Basophil# 0.02 X10^3/uL; Basophil% 0.4 % (0-1); Eosinophil# 0.05 X10^3/uL; Eosinophils% 0.9 % (0-5); Hematocrit 38.5 % (40-54); Lymphocyte # 0.71 X10^3/ul (0.83-4.51); Lymphocyte % 12.9 % (19-41); Mean Corp Hgb Conc 33.8 g/dL (32-36); Mean Corpuscular Hgb 34.7 pg (27.0-32.0); Mean Corpuscular Volume 102.7 fL (80-94); Mean Platelet Vol. 10.6 fl (6.2-12.0); Monocyte# 0.33 X10^3/uL; NRBC Flagged by Analyzer 0 % (0-5); Neutrophil # 4.35 X10^3/uL (2.7-7.7); Neutrophil % 79.3 % (47-70); POSITIVE MORPHOLOGY YES; Platelet Count 158 K/mm3 (150-450); RBC Distribution Width CV 17.3 % (11.6-14.6); RBC Distribution Width SD 65.9 fl (35.1-43.9); Red Blood Count 3.75 M/mm3 (4.6-6.2); White Blood Count 5.5 K/mm3 (4.4-11.0)
[2022-12-16 06:42] LABS: Differential Indicated SCAN CRITERIA MET
[2022-12-16 06:48] LABS: International Normalized Ratio 2.8; Prothrombin Time (Protime)PT. 30.2 SECONDS (11.7-14.9)
[2022-12-16 07:11] LABS: Anisocytosis 2+; Differential Comment SCANNED; Macrocytosis 2+
[2022-12-16 07:17] LABS: Anion Gap 3 (5-15); BUN 18 mg/dL (7-18); BUN/Creat Ratio 11.5 RATIO (10-20); Calcium,Total 8.5 mg/dL (8.5-10.1); Chloride 110 mmol/L (98-107); Creatinine, Serum 1.57 mg/dL (0.70-1.30); EST Glomerular Filtration Rate 48 mL/min (>60); Est Glom Filt Rate - Afr Amer 59 mL/min (>60); Estimated Creatinine Clearance 54.62 ml/min; Glucose 110 mg/dL (74-106); Sodium Level 140 mmol/L (136-145)
[2022-12-16] MEDS: Losartan Potassium 50 MG Tablet PO (09:38)
[2022-12-16] MEDS: Carvedilol 12.5 MG Tablet 18.75 MG PO ×2 (09:38→16:58)
[2022-12-16] MEDS: Ferrous Sulfate 325 MG Tablet PO ×2 (09:38→16:57)
[2022-12-16] MEDS: Pantoprazole Sodium 40 MG Tablet PO (09:38)
[2022-12-16] MEDS: Spironolactone 25 MG Tablet PO (09:39)
[2022-12-16] MEDS: Bumetanide 1 MG/4 ML Vial 2 MG IV ×2 (09:39→18:01)
[2022-12-16] MEDS: NYSTATIN 500,000 UNIT/5 ML UDC 100000 UNIT PO (09:39)
--- NOTE | 2022-12-16 10:30 | CASEMGMT ---
JOHN ROQUE Face to Face with patient for initial transition planning/care coordination assessment. RN CM introduced self and role at [facility]. Patient lying in bed, alert and oriented. Patient willing to participate in assessment and is able to answer all questions appropriately. Care providers, pharmacy, and demographics verified. Patient wishes to discharge home, denies need for home health at this time. Patient states he has no further needs or concerns at this time. CM to follow for discharge planning needs that may arise. PCP: Johnny Specialists: Jimenez, solutions architect consultant; Renata, vocational training instructor; Ayan, oncologist [facility]acy[facility] Insurance: MMO Prescription Benefit: yes Living Will/HPOA: yes, Tyshawn Vega LNOK: Living Arrangements: Patient lives with in a single story home with no steps to enter the home. Patient is independent at home Transportation: self, DME/HHC: Patient has cpap, nebulizer, pulse ox, and home oxygen with portability at 3lpm through [facility]. No previous HHC or SNF. Disposition Plan: Patient to discharge home with family support and follow-up plans in place. Will monitor for increase in home oxygen. Rakel BE, RN, CM
--- NOTE | 2022-12-16 12:27 | PCM.PN.HOSP ---
Reason for Visit Reason for Visit: Shortness of breath Subjective Subjective Mr. Vega is a 57-year-old -Citizen Of [place] male who presented to the emergency department at [facility] on 12/15/2022 with worsening shortness of breath. Patient told the admitting physician that he is supposed to be wearing his oxygen all the time at home however he is only wearing it when needed. His oxygen was written for by Dr. Yanez and is to be 3 L [id number]. He does have a history of systolic heart failure with an EF of 40% on his most recent echo which was done in April 2022. He is on diuretics at home use being Bumex 2 mg p.o. twice daily. It does sound like he is indiscretion and with his fluid intake as well as his sodium intake. He also has a history of metastatic renal cancer and is on immunotherapy for this. His BNP was markedly elevated at the time of admission at 574 but had been 220 in November of this past year. His chest x-ray also continue to showed a right-sided chest mass that is stable when compared to previous but there was a possible superimposed consolidation that they felt was potentially pneumonia. The patient did not have a leukocytosis on presentation was not febrile. He was also not coughing any sputum or having fevers at home per his report. Strep pneumo and Legionella antigens were obtained and negative. He was given Levaquin and placed on IV Bumex and admitted to the medical floor. Today the patient states that he is feeling somewhat better however not back to his baseline. We did verify that he is supposed to be on 3 L [id number] of oxygen. He tells me that he is wearing it consistently but there seems to be some conflicting information at presentation where he stated he was only wearing this and when he felt like he needed it. Objective Data Objective Data Vital Signs: Vital Signs Temp Pulse Resp BP Pulse Ox O2 Del Method O2 Flow Rate 97.5 F L 80 16 133/102 H 99 Nasal Cannula 2 12/16/22 09:34 12/16/22 09:34 12/16/22 09:34 12/16/22 09:34 12/16/22 09:34 12/16/22 10:00 12/16/22 10:00 Oxygen Flow Rate (L/min) 2 Oxygen Delivery Method Nasal Cannula Weight: 123.2 kg Body Mass Index (BMI) 37.8 Intake & Output: Intake and Output for Last 24 Hours 12/14/22 12/15/22 12/16/22 23:59 23:59 23:59 Intake Total 350 / 750 400 / 400 Balance 350 / 750 400 / 400 Lab / Micro Data 12/16/22 06:19 12/16/22 06:19 Labs: Laboratory Results - last 24 hr 12/15/22 12:41: WBC 7.6, RBC 4.01 L, Hgb 14.0, Hct 42.4, MCV 105.7 H, MCH 34.9 H, MCHC 33.0, RDW Std Deviation 70.7 H, RDW Coeff of Lizzie 18.0 H, Plt Count 173, MPV 11.2, Immature Gran % (Auto) 0.400, Neut % (Auto) 87.2 H, Lymph % (Auto) 7.4 L, [place] % (Auto) 4.6, Eos % (Auto) 0.1, Baso % (Auto) 0.3, Absolute Neuts (auto) 6.6, Absolute Lymphs (auto) 0.56 L, Nucleated RBC % 0.4, PT 25.4 H, INR 2.3, Sodium 137, Potassium 4.9, Chloride 109 H, Carbon Dioxide 24.0, Anion Gap 4 L, BUN 19 H, Creatinine 1.92 H, Estim Creat Clear Calc 44.67, Est GFR (MDRD) Af Amer 46 L, Est GFR (MDRD) Non-Af 38 L, BUN/Creatinine Ratio 9.9 L, Glucose 107 H, Calcium 9.0, Troponin I High Sens 40, B-Natriuretic Peptide 574.1 H 12/16/22 06:19: WBC 5.5, RBC 3.75 L, Hgb 13.0, Hct 38.5 L, MCV 102.7 H, MCH 34.7 H, MCHC 33.8, RDW Std Deviation 65.9 H, RDW Coeff of Lizzie 17.3 H, Plt Count 158, MPV 10.6, Immature Gran % (Auto) 0.500, Neut % (Auto) 79.3 H, Lymph % (Auto) 12.9 L, [place] % (Auto) 6.0, Eos % (Auto) 0.9, Baso % (Auto) 0.4, Absolute Neuts (auto) 4.4, Absolute Lymphs (auto) 0.71 L, Nucleated RBC % 0, Differential Comment SCANNED, Anisocytosis 2+, Macrocytosis 2+, PT 30.2 H, INR 2.8, Sodium 140, Potassium 4.0, Chloride 110 H, Carbon Dioxide 27.0, Anion Gap 3 L, BUN 18, Creatinine 1.57 H, Estim Creat Clear Calc 54.62, Est GFR (MDRD) Af Amer 59 L, Est GFR (MDRD) Non-Af 48 L, BUN/Creatinine Ratio 11.5, Glucose 110 H, Calcium 8.5 Micro: Microbiology 12/15/22 15:20 Urine, Clean Catch Legionella Antigen - Final 12/15/22 15:20 Urine, Clean Catch Streptococcus pneumoniae Antigen (M - Final Radiography Diagnostic Testing: Radiology Impression Chest X-Ray 12/15/22 13:13 IMPRESSION: Similar-appearing right pleural base mass compared to prior with superimposed areas of infiltrate/pneumonia within the right lower lobe and right middle lobe not excluded, clinically correlate. Electronically Signed: Jose Turner DO at 13:37 EDT , Rhythm Strip Rhythm Strip: A-fib Rate: 120 Ectopy: None Physical Exam Const alert, oriented x3, no apparent distress and well nourished; Negative for average body habitus or healthy appearing Constitutional Narrative: Obese, -Citizen Of [place], male, lying in bed, appears comfortable and nontoxic, nursing at bedside HEENT head/scalp atraumatic, moist oral mucous membranes and oropharynx normal HEENT Narrative: Mallampati 3, no thrush Resp normal respiratory effort, no retractions, no use of accessory muscles and No clear to auscultation bilaterally Resp Narrative: Few crackles at bases bilaterally but otherwise clear, no signs of respiratory distress Auscultation: crackles; Negative for rhonchi or wheezes Cardio regular rate, regular rhythm, S1 normal heart sound, S2 normal heart sound, no murmurs, no rub, no gallops and no clicks GI normal to inspection, nondistended, normoactive bowel sounds, soft to palpation and non-tender Extremity no clubbing, cyanosis or edema Extremity Narrative: Pedal pulses are 2+ Neuro oriented x3, moves all extremities and no focal motor deficits Speech: speech normal Psych affect normal Psych Narrative: Very pleasant, interacts appropriately Assessment & Plan Assessment/Plan (1) Acute on chronic systolic heart failure: (2) Shortness of breath: (3) Abnormal chest x-ray: PLAN: Plan Acute on chronic HFrEF -BNP is elevated significantly compared to his recent assessment in November -Patient is on his baseline oxygen currently of 3 L however he continues to have some shortness of breath and mild crackles at bases bilaterally -We will discontinue Levaquin as my suspicion is very low for infection given his normal white count and no symptoms that are suggestive of pneumonia other than shortness of breath -Most recent echocardiogram from 04/14/2022 demonstrated an EF of 40% with mild to moderate global hypokinesis of the LV, moderate biatrial enlargement, mild aortic valve insufficiency -Continue IV Bumex -Continue fluid restriction -Add sodium restriction--> discussed the importance of this with the patient prior to discharge as I suspect sodium indiscretion and fluid indiscretion is the reason for his required admission -Daily weights -Accurate I's and O's CKD stage IIIb -Baseline serum creatinine appears to run between 1.5 and 1.8 -Current serum creatinine despite diuresis is 1.57 -Repeat BMP in a.m. 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 Brandon Lopez at [facility] -Currently on immunotherapy -Patient has undergone radiation as well to his right kidney area -Recommend close outpatient follow-up after discharge Hypertension -Continue home carvedilol -Continue home losartan -Hold home Bumex and restart at discharge -Continue home Aldactone Atrial fibrillation -Continue beta-blockade -Continue Coumadin -Repeat a.m. INR -INR is 2.8 Hyperlipidemia -Continue home statin GERD -Continue home Protonix NIMCO -Continue nocturnal CPAP Tobacco abuse -Recommend cessation -Will order nicotine patch if patient needs DVT prophylaxis -INR therapeutic -Repeat INR in a.m. Charges/Coding Visit Charges Inpatient E&M: 45899 Subs Hosp L2
[2022-12-16] MEDS: Ensure Plus High Protein 120 ML LIQUID PO (13:27)
[2022-12-16] MEDS: Atorvastatin Calcium 80 MG Tablet PO (22:05)
[2022-12-16] MEDS: SimETHICONE 80 MG Chewable Tablet PO (23:17)
[2022-12-16] MEDS: Albuterol 2.5 MG/3 ML VIAL.NEB. INHALATION (23:42)
[2022-12-17 03:00] VITALS: BP 151/81; PULSE 75; RESP 18; TEMP 36.8; O2SAT 97
[2022-12-17 04:00] VITALS: BMI 36.1
[2022-12-17 06:18] LABS: Absolute Lymphocyte Count 0.88 X10^3/uL (0.83-4.51); Absolute Neutrophil Count 3.7 X10^3/uL (2.0-7.7); Basophil# 0.02 X10^3/uL; Basophil% 0.4 % (0-1); Eosinophil# 0.05 X10^3/uL; Hematocrit 41.2 % (40-54); Hemoglobin 13.9 g/dL (13.0-16.5); Lymphocyte # 0.88 X10^3/ul (0.83-4.51); Lymphocyte % 16.9 % (19-41); Mean Corp Hgb Conc 33.7 g/dL (32-36); Mean Corpuscular Hgb 34.4 pg (27.0-32.0); Mean Platelet Vol. 11.2 fl (6.2-12.0); Monocyte# 0.51 X10^3/uL; Monocyte% 9.8 % (0-10); NRBC Flagged by Analyzer 0.8 % (0-5); Neutrophil # 3.72 X10^3/uL (2.7-7.7); Neutrophil % 71.5 % (47-70); Platelet Count 193 K/mm3 (150-450); RBC Distribution Width CV 16.9 % (11.6-14.6); RBC Distribution Width SD 63.6 fl (35.1-43.9); Red Blood Count 4.04 M/mm3 (4.6-6.2); White Blood Count 5.2 K/mm3 (4.4-11.0)
[2022-12-17 06:39] LABS: International Normalized Ratio 2.2; Prothrombin Time (Protime)PT. 24.6 SECONDS (11.7-14.9)
[2022-12-17 06:53] LABS: Anion Gap 5 (5-15); BUN 19 mg/dL (7-18); BUN/Creat Ratio 11.5 RATIO (10-20); Calcium,Total 9.3 mg/dL (8.5-10.1); Chloride 107 mmol/L (98-107); Creatinine, Serum 1.65 mg/dL (0.70-1.30); EST Glomerular Filtration Rate 46 mL/min (>60); Est Glom Filt Rate - Afr Amer 55 mL/min (>60); Estimated Creatinine Clearance 51.97 ml/min; Glucose 110 mg/dL (74-106); Potassium 3.5 mmol/L (3.5-5.1); Sodium Level 138 mmol/L (136-145)
[2022-12-17 07:02] VITALS: O2SAT 85; O2SAT 88; O2SAT 95; O2SAT 96
[2022-12-17 09:00] VITALS: BP 125/87; PULSE 77; RESP 16; TEMP 36.6; O2SAT 97
[2022-12-17] MEDS: NYSTATIN 500,000 UNIT/5 ML UDC 100000 UNIT PO (09:16)
[2022-12-17] MEDS: Bumetanide 1 MG/4 ML Vial 2 MG IV (09:16)
[2022-12-17] MEDS: Losartan Potassium 50 MG Tablet PO (09:16)
[2022-12-17] MEDS: Pantoprazole Sodium 40 MG Tablet PO (09:17)
[2022-12-17] MEDS: Carvedilol 12.5 MG Tablet 18.75 MG PO (09:17)
[2022-12-17] MEDS: 0.9% Saline Lock 10 ML Syringe IV (09:17)
[2022-12-17] MEDS: Spironolactone 25 MG Tablet PO (09:17)
[2022-12-17] MEDS: Ferrous Sulfate 325 MG Tablet PO (09:17)
[2022-12-17 09:18] VITALS: O2SAT 97
--- NOTE | 2022-12-17 12:10 | DS.PCM_ITS ---
Providers Date of Admission: 12/16/22 Date of Discharge: 12/17/22 Primary Care Physician: Dr. Jose Ramon Turner MD Reason For Visit: RESP INSUFFICIENCY, PNEUMONIA, CHF Diagnosis Discharge Diagnosis (1) Acute on chronic systolic heart failure: Status: Chronic Code(s): I50.23 - Acute on chronic systolic (congestive) heart failure (2) Shortness of breath: Status: Acute Code(s): R06.02 - Shortness of breath (3) Abnormal chest x-ray: Status: Acute Code(s): R93.89 - Abnormal findings on diagnostic imaging of other specified body structures Medications at Discharge Home Medications cyclobenzaprine 10 mg tablet 10 mg PO TID PRN Spasms 12/07/21 albuterol sulfate 2.5 mg/3 mL (0.083 %) solution for nebulization 2.5 mg (3 mL) inhalation PRN PRN Shortness Of Breath #75 mL 06/29/22 ferrous sulfate 325 mg (65 mg iron) tablet 325 mg PO BID #30 tabs 06/29/22 fluticasone fur. 100 mcg-umeclid 62.5 mcg-vilant 25 mcg inhalat.powder (Trelegy Ellipta) 1 inh inhalation DAILY #28 ea 06/29/22 nystatin 100,000 unit/mL oral suspension 100,000 unit PO DAILY #60 mL 06/29/22 pantoprazole 40 mg tablet,delayed release 40 mg PO DAILY gerd #30 tabs 06/29/22 potassium chloride 20 mEq tablet,extended release 20 meq PO DAILY #30 tabs 06/29/22 rosuvastatin 40 mg tablet 40 mg PO DAILY cholesterol #30 tabs 06/29/22 warfarin 10 mg tablet 8 mg (0.8 x 10 mg) PO DAILY Check with primary doctor #30 tabs 06/29/22 bumetanide 2 mg tablet 2 mg PO BID #180 tabs 09/29/22 cabozantinib 20 mg tablet 20 mg PO DAILY 09/29/22 carvedilol 12.5 mg tablet 18.75 mg PO BID 09/29/22 losartan 50 mg tablet 50 mg PO DAILY #90 tabs 09/29/22 spironolactone 25 mg tablet 25 mg PO DAILY #90 tabs 09/29/22 Hospital Course Procedures EKG and - (Chest x-ray) Summary of Care Provided Minutes Spent on Discharge: 37 Hospital Course: Mr. Vega is a 57-year-old -[place] Citizen male who presented to the emergen cy department at [facility] on 12/15/2022 with worsening shortness of breath. Patient told the admitting physician that he is supposed to be wearing his oxygen all the time at home however he is only wearing it when needed. His oxygen was written for by Dr. Yanez and is to be 3 L [id number]. He does have a history of systolic heart failure with an EF of 40% on his most recent echo which was done in April 2022. He is on diuretics at home use being Bumex 2 mg p.o. twice daily. It does sound like he has poor indiscretion with his fluid intake as well as his sodium intake. Patient did report to me he does not add any salt but he reports he often eats bologna sandwiches for lunch. I did have a dietitian consult with him to discuss low-sodium diet and we also gave him information with regards to decreasing his salt intake and a low sodium diet at home for him to review. He also has a history of metastatic renal cancer and is on immunotherapy for this. His BNP was markedly elevated at the time of admission at 574 but had been 220 in November of this past year. His chest x-ray also continue to showed a right-sided chest mass that is stable when compared to previous but there was a possible superimposed consolidation that they felt was potentially pneumonia. The patient did not have a leukocytosis on presentation was not febrile. He was also not coughing any sputum or having fevers at home per his report. Strep pneumo and Legionella antigens were obtained and negative. He was given Levaquin and placed on IV Bumex and admitted to the medical floor. I was able to discontinue his IV Levaquin given the above. He was maintained on IV Bumex for total of 48 hours and was feeling much better. His oxygen requirements were at his baseline of 3 L with exertion and at rest when assessed prior to discharge and he was feeling much better. Again we did have the dietitian review a low-sodium diet and gave him information with regards to this as I think this dietary discretion of sodium is likely causing his recurrent admissions with regards to heart failure. We also did discuss his need for tobacco cessation as he is still smoking and compliance with his oxygen at home. He voiced understanding. I recommended he follow-up with his primary care physician within the next [address] Yanez within the next month. He was discharged home in stable condition on 12/17/2022 with no medication changes. Discharge diagnoses: Acute on chronic HFrEF CKD stage IIIb Metastatic clear-cell carcinoma Hypertension Chronic hypoxic respiratory failure--> home prescription is for 3 L [id number] Atrial fibrillation Hyperlipidemia GERD NIMCO Tobacco abuse Physical Exam Const no apparent distress and well nourished; Negative for average body habitus or healthy appearing Constitutional Narrative: Obese, -[place] Citizen, male, lying in bed resting comfortably but awakens easily, wearing CPAP alert and oriented when awake, appears comfortable and nontoxic General Appearance: cooperative, comfortable, well kempt and well developed Exam Limitations: no limitations HEENT normocephalic, head/scalp atraumatic, moist oral mucous membranes and oropharynx normal HEENT Narrative: Mallampati 3, no thrush Eyes PERRL, EOMs intact bilaterally and conjunctivae normal Eyes Narrative: No scleral icterus Neck no lymphadenopathy and supple Neck Narrative: Trachea midline, no thyroid enlargement Resp normal respiratory effort, no retractions, no use of accessory muscles and clear to auscultation bilaterally Resp Narrative: Diffusely diminished but clear Auscultation: Negative for crackles, rhonchi or wheezes Cardio regular rate, regular rhythm, S1 normal heart sound, S2 normal heart sound, no murmurs, no rub, no gallops and no clicks GI normal to inspection, nondistended, normoactive bowel sounds, soft to palpation and non-tender Extremity no clubbing, cyanosis or edema Extremity Narrative: Pedal pulses are 2+ Skin no rashes or lesions noted, no wounds, skin turgor normal and no jaundice Neuro oriented x3, CN's II-XII intact bilaterally, moves all extremities and no focal motor deficits Speech: speech normal Psych affect normal Psych Narrative: Very pleasant, interacts appropriately Weight / BMI Weight Weight: 117.7 kg Body Mass Index (BMI) 36.1 ABG / Lab / Microbiology Data 12/17/22 05:49 12/17/22 05:49 Laboratory: Laboratory Results - last 24 hr 12/17/22 05:49: WBC 5.2, RBC 4.04 L, Hgb 13.9, Hct 41.2, MCV 102.0 H, MCH 34.4 H , MCHC 33.7, RDW Std Deviation 63.6 H, RDW Coeff of Lizzie 16.9 H, Plt Count 193, MPV 11.2, Immature Gran % (Auto) 0.400, Neut % (Auto) 71.5 H, Lymph % (Auto) 16.9 L, [place] % (Auto) 9.8, Eos % (Auto) 1.0, Baso % (Auto) 0.4, Absolute Neuts (auto) 3.7, Absolute Lymphs (auto) 0.88, Nucleated RBC % 0.8, PT 24.6 H, INR 2.2, Sodium 138, Potassium 3.5, Chloride 107, Carbon Dioxide 26.0, Anion Gap 5, BUN 19 H, Creatinine 1.65 H, Estim Creat Clear Calc 51.97, Est GFR (MDRD) Af Amer 55 L, Est GFR (MDRD) Non-Af 46 L, BUN/Creatinine Ratio 11.5, Glucose 110 H, Calcium 9.3 Microbiology: Microbiology 12/15/22 15:20 Urine, Clean Catch Legionella Antigen - Final 12/15/22 15:20 Urine, Clean Catch Streptococcus pneumoniae Antigen (M - Final D/C Instructions Discharge Diet: Low fat / Low cholesterol (Limit fluid intake to about 2 L daily) and 2000 mg Sodium Diet Discharge Activity: Return to Normal Activity Return to work on: 12/18/22 Meaningful Use Info Meaningful Use Diagnoses (Choose all that apply): None applicable Discharge Plan Admission Admit Date/Time: 12/16/22 14:50 Primary Reason for Your Visit: Shortness of Breath Attending Provider: Carol Chiu Primary Care Provider: Jose Ramon Turner Consulting Providers: Marquise Padilla Instructions Patient Instructions: Low-Salt Choices, Low Salt Diet Dc Additional Instructions / Restrictions: 1. It is very important that you watch your salt intake as discussed with the dietitian prior to discharge Discharge Orders/Prescriptions Prescriptions: Continued carvedilol 12.5 mg tablet 18.75 mg PO BID spironolactone 25 mg tablet 25 mg PO DAILY Qty: 90 3RF bumetanide 2 mg tablet 2 mg PO BID Qty: 180 3RF losartan 50 mg tablet 50 mg PO DAILY Qty: 90 3RF cyclobenzaprine 10 mg Tablet 10 mg PO TID PRN (Reason: Spasms) cabozantinib 20 mg tablet 20 mg PO DAILY albuterol sulfate 2.5 mg /3 mL (0.083 %) solution for nebulization 2.5 mg inhalation PRN PRN (Reason: Shortness Of Breath) Qty: 75 0RF warfarin 10 mg Tablet 8 mg PO DAILY Qty: 30 0RF pantoprazole 40 mg tablet,delayed release (DR/EC) 40 mg PO DAILY Qty: 30 0RF ferrous sulfate 325 mg (65 mg iron) Tablet 325 mg PO BID Qty: 30 0RF rosuvastatin 40 mg Tablet 40 mg PO DAILY Qty: 30 0RF potassium chloride 20 mEq tablet extended release 20 meq PO DAILY Qty: 30 0RF Trelegy Ellipta 100-62.5-25 mcg blister with device 1 inh inhalation DAILY Qty: 28 0RF nystatin 100,000 unit/mL suspension 100,000 unit PO DAILY Qty: 60 0RF Rx Instructions: administer 1/2 of dose in each side of the mouth Referrals / Follow Up: Jose Ramon Turner MD [Primary Care Provider] - Within 2 Weeks (Please call the office to schedule an appt within the next 2 weeks. ) Cipriano Yanez MD [Med Staff - Active Staff] - 12/28/22 11:30 am Disposition Disposition (needs filled in before D/C Order can be placed): Home, Self Care Charges/Coding Visit Charges Inpatient E&M: 96622 Disch Hosp >30min
== END 2022-12-17 13:10 | disposition home or self-care (01) | DRG 291 ==
LOC: ED 15:29 → PCU 16:53
PROVIDERS: Admitting Provider Family Medicine; Emergency Provider Emergency Medicine; PCP Family Medicine; Visit Provider Internal Medicine
DX: I13.0 Hypertensive heart and chronic kidney disease with heart failure and stage 1 through stage 4 chronic kidney disease, or unspecified chronic kidney disease (principal); C79.51 Secondary malignant neoplasm of bone; J44.9 Chronic obstructive pulmonary disease, unspecified; I50.23 Acute on chronic systolic (congestive) heart failure; C64.9 Malignant neoplasm of unspecified kidney, except renal pelvis; J96.11 Chronic respiratory failure with hypoxia; I48.20 Chronic atrial fibrillation, unspecified; D68.9 Coagulation defect, unspecified; N18.32 Chronic kidney disease, stage 3b; R04.2 Hemoptysis; Z79.01 Long term (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 of 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; I35.1 Nonrheumatic aortic (valve) insufficiency; K21.9 Gastro-esophageal reflux disease without esophagitis; E78.5 Hyperlipidemia, unspecified; F17.290 Nicotine dependence, other tobacco product, uncomplicated; G47.33 Obstructive sleep apnea (adult) (pediatric); Z79.51 Long term (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 of inhaled steroids; Z79.82 Long term (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 of aspirin; Z90.5 Acquired absence of kidney; Z99.81 Dependence on supplemental oxygen; Z79.899 Other long term (current) drug therapy
CPT/HCPCS: 36415; 71046; 80048; 83880; 84484; 85025; 85610; 87449; 93005; 94640; 94660; 96365; 96375; 96376; 99221; 99285; A4216; G0378

== ENCOUNTER → 2022-12-30 | Outpatient (CLI) | payer OTHER, SELFPAY ==
--- NOTE | 2022-12-30 09:06 | RAD_ITS ---
STUDY: X-RAY - PARANASAL SINUSES REASON FOR EXAM: Male, 57 years old. CHRONIC SINUS ISSUES. STUFFINESS AND PRESSURE ON BOTH SIDES, BUT WORSE ON LEFT TECHNIQUE: 3 view(s) of the paranasal sinuses were obtained. COMPARISON: None. FINDINGS: Normal visualized frontal, maxillary, ethmoidal and sphenoid sinuses. Normal visualized facial bones. The soft tissue structures are unremarkable. RAD/Sinuses min 3 Views IMPRESSION: Normal x-rays of the paranasal sinuses. Electronically Signed: Gee Adam MD at 17:57 EDT ,
== END | disposition home or self-care (01) ==
PROVIDERS: PCP Family Medicine; Referring Provider Family Medicine; Visit Provider Family Medicine
DX: J32.9 Chronic sinusitis, unspecified (principal)
CPT/HCPCS: 70220

== ENCOUNTER → 2023-02-12 | Outpatient (CLI) | payer OTHER, SELFPAY ==
[2023-02-12 11:18] LABS: Bacteria 0 SEEN /hpf (None Seen); Mucous, Urine 0 SEEN /hpf (<or=2+); Red Blood Cells-Urine 0 SEEN /hpf (0-5); Squamous Epithelial Cells - UA 0 SEEN /hpf (0-5)
[2023-02-12 11:46] LABS: Color, Urine Yellow (Yellow); Glucose, Dipstick Normal (Normal); Ketone-Dipstick Negative (Negative); Leukocyte Esterase-Dipstick 25 /ul (Negative); Nitrite-Dipstick Negative (Negative); Occult Blood-Urine Negative /ul (Negative); Protein-Dipstick 15 mg/dl (Negative); Urine Bilirubin Dipstick Negative (Negative); Urine Clarity Clear (Clear); Urine Urobilinogen Normal (Normal)
[2023-02-12 11:55] LABS: White Blood Cells 0-5 SEEN /hpf (0-5)
[2023-02-12 12:03] LABS: Protein, Urine (Random) 20.7 mg/dL (<11.9); Protein:Creat Ratio 107 mg/g CRE (0-200)
== END | disposition home or self-care (01) ==
LOC: LABSPEC 11:16
PROVIDERS: PCP Family Medicine; Visit Provider Internal Medicine Nephrology
DX: N18.31 Chronic kidney disease, stage 3a (principal)
CPT/HCPCS: 81001; 82570; 84156

== ENCOUNTER → 2023-03-04 | Outpatient (CLI) | payer OTHER, SELFPAY ==
--- NOTE | 2023-03-04 12:56 | CT_ITS ---
INDICATION: MONITOR METASTATIC RENAL CA EXAMINATION: CT Chest Abdomen And Pelvis W/O Contrast Injection TECHNIQUE: Images were obtained of the chest, abdomen and pelvis without IV contrast. A radiation dose optimization technique was used for this scan. COMPARISON: 10/01/2022. FINDINGS: Evaluation of the solid organs and vascular structures is limited without intravenous contrast. Lungs: Post radiation fibrosis changes again seen in the right middle lobe. Mediastinum: The cardiomediastinal silhouette is not enlarged. No mediastinal, hilar or axillary adenopathy. Mild aortic arch and coronary artery calcifications. No obvious filling defect seen within the visualized pulmonary arteries. Pleura: Unremarkable Liver: Unremarkable Gallbladder: Unremarkable Spleen: Unremarkable Pancreas: Unremarkable Adrenal Glands: Unremarkable Kidneys: Status post right nephrectomy. No abnormality in the surgical bed. Vasculature: Mild scattered aortoiliac atherosclerotic calcifications. Stable 4 cm infrarenal abdominal aortic aneurysm. GI Tract: Unremarkable Lymphadenopathy: None Peritoneum: No ascites. Bladder: Unremarkable Reproductive organs: Unremarkable Bones/Soft tissues: Stable 2.7 x 6.9 cm soft tissue mass in the anterolateral aspect of the right seventh rib. Stable lytic appearance of the L4 spinous process. CT/CT Chest, Abd, Pelvis WO Cont IMPRESSION: No new evidence of recurrent or metastatic disease in the chest, abdomen or pelvis. Stable large soft tissue mass in the anterolateral aspect of the right seventh rib. Stable lytic appearance of the L4 spinous process. Stable 4 cm infrarenal abdominal aortic aneurysm. Electronically Signed: Bari Tracy MD at 15:02 EST ,
== END | disposition home or self-care (01) ==
LOC: CT 12:53
PROVIDERS: PCP Family Medicine; Referring Provider Internal Medicine Medical Oncology; Visit Provider Internal Medicine Medical Oncology
DX: C64.1 Malignant neoplasm of right kidney, except renal pelvis (principal); C79.51 Secondary malignant neoplasm of bone
CPT/HCPCS: 71250; 74176

== ENCOUNTER → 2023-04-26 | Outpatient (CLI) | payer OTHER, SELFPAY ==
--- NOTE | 2023-04-26 16:45 | RAD_ITS ---
STUDY: X-RAY CHEST REASON FOR EXAM: Male, 58 years old. Increased diarrhea TECHNIQUE: Frontal and lateral views of the chest. COMPARISON: Prior chest x-ray of 12/15/[address] scan of the chest of 02/24/2023. FINDINGS: Persistent large pleural-based right chest wall mass corresponding to the CT findings of expansile mass involving the right seventh rib. No new infiltrate is seen. There is no demonstrated pleural abnormality. Normal size heart. Normal mediastinum and tesha. Normal visualized pulmonary arteries. Normal visualized aortic arch and descending thoracic aorta. Stable soft tissues and osseous structures. There is no demonstrated abnormality of the visualized soft tissue structures of the upper abdomen. RAD/Chest PA and Lateral IMPRESSION: 1. No significant change. 2. No new infiltrate is seen Electronically Signed: Davy Linn MD at 9:47 EST ,
== END | disposition home or self-care (01) ==
PROVIDERS: PCP Family Medicine; Referring Provider Family Medicine; Visit Provider Family Medicine
DX: J44.9 Chronic obstructive pulmonary disease, unspecified (principal)
CPT/HCPCS: 71046

== ENCOUNTER → 2023-05-20 | Outpatient (CLI) | payer OTHER, SELFPAY ==
[2023-05-20 14:54] LABS: Albumin, Serum 3.2 g/dL (3.2-5.0); BUN 21 mg/dL (7-18); BUN/Creat Ratio 11.1 RATIO (10-20); Calcium,Total 8.6 mg/dL (8.5-10.1); Chloride 104 mmol/L (98-107); Creatinine, Serum 1.89 mg/dL (0.70-1.30); EST Glomerular Filtration Rate 39 mL/min (>60); Est Glom Filt Rate - Afr Amer 47 mL/min (>60); Glucose 113 mg/dL (74-106); Potassium 3.8 mmol/L (3.5-5.1); Sodium Level 137 mmol/L (136-145)
== END | disposition home or self-care (01) ==
PROVIDERS: PCP Family Medicine; Referring Provider Internal Medicine Nephrology; Visit Provider Internal Medicine Nephrology
DX: N18.31 Chronic kidney disease, stage 3a (principal); R19.7 Diarrhea, unspecified
CPT/HCPCS: 36415; 80069; 82271; 87177; 87209; 87493; 87506

== ENCOUNTER → 2023-05-21 | Outpatient (CLI) | payer OTHER, SELFPAY | END | disposition home or self-care (01) | PROVIDERS: PCP Family Medicine; Referring Provider Family Medicine; Visit Provider Family Medicine | DX: R19.7 Diarrhea, unspecified (principal) | CPT/HCPCS: 82274; 82653; 87177; 87209; 87493; 87506 ==

== ENCOUNTER → 2023-05-27 | Outpatient (CLI) | payer OTHER, SELFPAY ==
[2023-05-27 18:00] LABS: Vitamin B12 241 pg/mL (211-911)
[2023-05-27 18:04] LABS: ALB/GLOB Ratio 0.9 RATIO (0.9-2.4); AST(SGOT) 40 U/L (15-37); Alanine Aminotransfer ALT/SGPT 54 U/L (16-61); Albumin, Serum 3.1 g/dL (3.2-5.0); Alkaline Phosphatase 73 U/L (45-117); Anion Gap 8 (5-15); BUN 18 mg/dL (7-18); BUN/Creat Ratio 10.7 RATIO (10-20); Calcium,Total 8.8 mg/dL (8.5-10.1); Chloride 106 mmol/L (98-107); Creatinine, Serum 1.69 mg/dL (0.70-1.30); EST Glomerular Filtration Rate 44 mL/min (>60); Est Glom Filt Rate - Afr Amer 54 mL/min (>60); Ferritin 515 ng/mL (26-388); Globulin 3.6 g/dL (2.2-4.2); Glucose 106 mg/dL (74-106); Iron 115 ug/dL (65-175); Potassium 3.8 mmol/L (3.5-5.1); Protein, Total 6.7 g/dL (6.4-8.2); Sodium Level 138 mmol/L (136-145); Thyroid Stim Hormone (TSH) 3.25 uIU/mL (0.358-3.74)
== END | disposition home or self-care (01) ==
LOC: MTLAB 14:08
PROVIDERS: PCP Family Medicine; Referring Provider Family Medicine; Visit Provider Family Medicine
DX: R53.83 Other fatigue (principal)
CPT/HCPCS: 36415; 80053; 82607; 82728; 83540; 84403; 84443

== ENCOUNTER → 2023-08-10 | Outpatient (CLI) | payer OTHER, SELFPAY ==
[2023-08-10 15:28] LABS: Albumin, Serum 3.2 g/dL (3.2-5.0); BUN 15 mg/dL (7-18); BUN/Creat Ratio 8.1 RATIO (10-20); Calcium,Total 8.3 mg/dL (8.5-10.1); Chloride 110 mmol/L (98-107); Creatinine, Serum 1.85 mg/dL (0.70-1.30); EST Glomerular Filtration Rate 40 mL/min (>60); Est Glom Filt Rate - Afr Amer 48 mL/min (>60); Glucose 109 mg/dL (74-106); Phosphorus 1.9 mg/dL (2.5-4.9); Potassium 4.2 mmol/L (3.5-5.1); Sodium Level 138 mmol/L (136-145)
== END | disposition home or self-care (01) ==
LOC: LAB 13:30
PROVIDERS: PCP Family Medicine; Referring Provider Internal Medicine Nephrology; Visit Provider Internal Medicine Nephrology
DX: N17.9 Acute kidney failure, unspecified (principal); N18.31 Chronic kidney disease, stage 3a
CPT/HCPCS: 36415; 80069

== ENCOUNTER → 2023-10-07 | Outpatient (CLI) | payer OTHER, SELFPAY ==
--- NOTE | 2023-10-07 13:48 | CT_ITS ---
STUDY: CT CHEST, ABDOMEN T PELVIS WITHOUT CONTRAST REASON FOR EXAM: Male, 58 years old. MONITOR RENAL CA RADIATION DOSAGE (If Supplied By Facility): CTDIvol = ( 25.85 ) mGy, DLP = ( 2259.04 ) mGycm TECHNIQUE: Transaxial imaging was performed without the administration of intravenous contrast material. The protocol utilizes one or more of the following dose reduction techniques: automated exposure control, adjustment of mA and/or kV according to patient size,and/or use of iterative reconstruction technique. COMPARISON: Prior study dated: 03/04/2023 FINDINGS: CHEST Right middle lobe postradiation changes are again seen essentially unchanged adjacent to stable destructive mass or of the right sixth rib measuring about 7.2 x 3.8 cm unchanged. No new nodules are seen. There is no demonstrated pleural abnormality. Normal heart and pericardium. There are calcifications of the coronary arteries. Normal mediastinum. Normal hilar regions. Normal unenhanced pulmonary arteries. Normal aorta arch and descending thoracic aorta. No other lytic or osteoblastic osseous lesions are seen ABDOMEN Normal liver. Normal gallbladder and extrahepatic biliary system. Normal spleen. Normal pancreas. Normal bilateral adrenal glands. Status post right nephrectomy. Normal left kidney. Normal visualized stomach. Normal small intestine. No evidence of acute diverticulitis. The appendix is visualized and appears normal. Infrarenal 4.2 cm abdominal aortic aneurysm minimally larger than the previous exam. Normal inferior vena cava. Normal retroperitoneum. Normal abdominal wall. Negative lesion of L4 spinous process unchanged. No new osseous lesions are identified. PELVIS The bladder is not well distended. There is no pelvic fluid. There is no pelvic lymphadenopathy or mass lesion. CT/CT Chest, Abd, Pelvis WO Cont IMPRESSION: 1. No new metastatic disease.. 2. Stable soft tissue mass with destructive process of the left sixth rib unchanged. 3. 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 4. Infrarenal 4.2 cm abdominal aortic aneurysm unchanged or slightly larger than the previous exam. 5. Status post right nephrectomy. Electronically Signed: Davy Linn MD at 10:47 EDT ,
== END | disposition home or self-care (01) ==
LOC: CT 13:45
PROVIDERS: PCP Family Medicine; Referring Provider Internal Medicine Medical Oncology; Visit Provider Internal Medicine Medical Oncology
DX: C64.1 Malignant neoplasm of right kidney, except renal pelvis (principal); C79.51 Secondary malignant neoplasm of bone
CPT/HCPCS: 71250; 74176

== ENCOUNTER → 2023-12-22 | Outpatient (CLI) | payer MEDICARE, OTHER, SELFPAY ==
[2023-12-22 10:44] LABS: Hematocrit 43.7 % (40-54); Hemoglobin 14.8 g/dL (13.0-16.5); Mean Corp Hgb Conc 33.9 g/dL (32-36); Mean Corpuscular Hgb 34.1 pg (27.0-32.0); Mean Corpuscular Volume 100.7 fL (80-94); Mean Platelet Vol. 11.4 fl (6.2-12.0); Platelet Count 219 K/mm3 (150-450); RBC Distribution Width CV 16.7 % (11.6-14.6); RBC Distribution Width SD 62.4 fl (35.1-43.9); Red Blood Count 4.34 M/mm3 (4.6-6.2); White Blood Count 7.6 K/mm3 (4.4-11.0)
[2023-12-22 11:20] LABS: ALB/GLOB Ratio 0.9 RATIO (0.9-2.4); AST(SGOT) 37 U/L (15-37); Alanine Aminotransfer ALT/SGPT 48 U/L (16-61); Albumin, Serum 3.2 g/dL (3.2-5.0); Alkaline Phosphatase 64 U/L (45-117); Anion Gap 7 (5-15); BUN 19 mg/dL (7-18); BUN/Creat Ratio 10.2 RATIO (10-20); Chloride 106 mmol/L (98-107); Cholesterol 112 mg/dL (200); Creatinine, Serum 1.86 mg/dL (0.70-1.30); EST Glomerular Filtration Rate 40 mL/min (>60); Est Glom Filt Rate - Afr Amer 48 mL/min (>60); Ferritin 452 ng/mL (26-388); Globulin 3.4 g/dL (2.2-4.2); Glucose 115 mg/dL (74-106); High Density Lipoprotein 44 mg/dL; Iron 92 ug/dL (65-175); Potassium 4.3 mmol/L (3.5-5.1); Protein, Total 6.6 g/dL (6.4-8.2); Sodium Level 138 mmol/L (136-145); Triglycerides 104 mg/dL; Very Low Density Lipoprotein 21 mg/dL (5-40)
== END | disposition home or self-care (01) ==
PROVIDERS: PCP Family Medicine; Referring Provider Internal Medicine Medical Oncology; Visit Provider Internal Medicine Medical Oncology
DX: I11.0 Hypertensive heart disease with heart failure (principal); I50.9 Heart failure, unspecified; I48.91 Unspecified atrial fibrillation; R79.89 Other specified abnormal findings of blood chemistry; D64.9 Anemia, unspecified
CPT/HCPCS: 36415; 80053; 80061; 82607; 82728; 83540; 85027

== ENCOUNTER → 2024-01-11 | Outpatient (CLI) | payer MEDICARE, OTHER, SELFPAY ==
--- NOTE | 2024-01-11 16:16 | RAD_ITS ---
STUDY: X-RAY - ABDOMEN/PELVIS REASON FOR EXAM: Male, 59 years old. bloating TECHNIQUE: AP supine and upright views of the abdomen and pelvis. COMPARISON: None. FINDINGS: Normal visualized lung bases. There is an unremarkable bowel gas pattern. There is no demonstrated free abdominal air. The visualized liver, spleen and kidneys are grossly normal in size and morphology. Normal soft tissue structures. Normal visualized osseous structures. RAD/Abd Inc Decub and/or Erect IMPRESSION: Normal x-ray examination of the abdomen and pelvis. Electronically Signed: Lul Peters MD at 12:31 EST ,
[2024-01-11 18:16] LABS: Follicle Stimulating Hormone 3.4 mIU/mL; Luteinizing Hormone 4.5 mIU/mL
[2024-01-13 08:12] LABS: Sex Hormone-binding Globulin 23.8 nmol/L (19.3-76.4)
== END | disposition home or self-care (01) ==
PROVIDERS: PCP Family Medicine; Referring Provider Family Medicine; Visit Provider Family Medicine
DX: R14.3 Flatulence (principal)
CPT/HCPCS: 36415; 74019; 83001; 83002; 84270; 84403

== ENCOUNTER 2024-02-08 14:47 | Outpatient (CLI) | payer MEDICARE, OTHER, SELFPAY ==
--- NOTE | 2024-02-08 14:49 | CT_ITS ---
STUDY: LOW DOSE CT LUNG CANCER SCREENING REASON FOR EXAM: Male, 59 years old. 25 pack year.. 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 Low dose technique was utilized (average mAS-38 and kVp 120). 1.25 mm axial source images with a slice interval of 1.25-mm were reconstructed in lung windows. 2.5 mm axial source images with a slice interval of 2.5-mm were reconstructed in lung windows. 5.0 mm axial source images with a slice interval of 5.0-mm were reconstructed in soft tissue windows. Nodule measured using lung windows on PACS and/or independent workstation with automated measurement of minimum and maximum diameter. Nodule measurement reported as average diameter rounded to the nearest whole number. Growth is defined as an increase ins size of greater than 1.5 mm. COMPARISON: CT of the chest dated October 07, 2023. FINDINGS: Total lung nodules (excluding granulomas): No pulmonary masses or nodules are present. Small right upper lobe calcified granuloma seen in the lateral subpleural region on image 120/275 series 2. Emphysema: Mild Endobronchial lesion: None present Aorta: No aneurysmal dilatation No demonstrated pneumonic consolidation or pulmonary edema or pleural effusion. There are diffuse interstitial fibrotic changes of the lungs. There is no demonstrated pleural abnormality. Normal heart and pericardium. There are calcifications of the coronary arteries. Normal mediastinum. Normal hilar regions. Normal unenhanced pulmonary arteries. Normal aorta arch and descending thoracic aorta. There are multi-level degenerative changes of the thoracic spine. 6th right rib: Redemonstration of expansile lytic mass of the lateral aspect of the right sixth rib with underlying pleural thickening and concavity bulging into the periphery of the right middle lobe and with underlying mild bronchiectasis, cystic change, interstitial fibrosis at the periphery of the lesion likely due to desmoplastic reaction or prior radiation or chemotherapy treatment. No new abnormalities are present. There is no demonstrated abnormality of the visualized upper abdomen. CT/Low Dose CT Lung Screening IMPRESSION: 1. Mild cystic emphysematous changes 2. No lung masses or nodules or spiculated lesions 3. 6th right rib: Redemonstration of expansile lytic mass of the lateral aspect of the right sixth rib with underlying pleural thickening and concavity bulging into the periphery of the right middle lobe and with underlying mild bronchiectasis, cystic change, interstitial fibrosis at the periphery of the lesion likely due to desmoplastic reaction or prior radiation or chemotherapy treatment. No new abnormalities are present. 4. Lung-RADS category 2 - Continue annual screening with LDCT in 12 months. IMPORTANT NOTES FOR USE: ACR Lung-RADS Version 1.0 Assessment Categories Release Date: 2021 Classification system Category 0 (Incomplete)- prior CT studies were performed but are not available, lungs incompletely imaged, findings suggest inflammation or infection Category 1 (negative, <1% chance of malignancy) (no lung nodules/lung nodule(s) with specific findings favoring benign nodule(s)) Category 2 (benign appearance or behavior, <1% chance of malignancy) juxtapleural nodule <10mm mean diameter at baseline OR new and smooth, solid, oval, lentiform, or triangular Category 3 nodules that are stable or decreased at 6 months Category 3 (probably benign, 1-2% chance of malignancy) solid nodule(s)(between 6 and 8 mm at baseline; new nodule between 4 mm and 6 mm) Category 4A lesion, stable or decreased in size at 3-month follow-up (excluding airway nodules) Category 4A (suspicious, 5-15% chance of malignancy) (version 1.1 change previously suspicious) solid nodule(s) (?8 mm to <15 mm at baseline or growing nodule(s) <8 mm) Category 4B (very suspicious, >15% chance of malignancy) stable or growing airway nodule, segmental or more proximal (solid nodule(s) ? 15 mm at baseline or new or growing, and ?8 mm) Category 4X (very suspicious, >15% chance of malignancy) category 3 or 4 nodules with additional features or imaging findings that increase the suspicion of malignancy Modified categories [X]S (e.g. 3S) if there is a clinically significant or potentially significant non-lung cancer finding Electronically Signed: Rony Donis MD at 9:32 EST ,
== END 2024-02-08 23:59 | disposition home or self-care (01) ==
LOC: CT 14:48
PROVIDERS: PCP Family Medicine; Referring Provider Family Medicine; Visit Provider Family Medicine
DX: F17.210 Nicotine dependence, cigarettes, uncomplicated (principal); J43.9 Emphysema, unspecified
CPT/HCPCS: 71271

== ENCOUNTER → 2024-03-22 | Outpatient (CLI) | payer MEDICARE, SELFPAY ==
[2024-03-22 13:09] LABS: Vitamin D,25 Hydroxy 30.8 ng/mL
[2024-03-22 13:25] LABS: Albumin, Serum 3.1 g/dL (3.2-5.0); BUN 24 mg/dL (7-18); BUN/Creat Ratio 10.8 RATIO (10-20); Calcium,Total 8.3 mg/dL (8.5-10.1); Chloride 107 mmol/L (98-107); Creatinine, Serum 2.22 mg/dL (0.70-1.30); EST Glomerular Filtration Rate 32 mL/min (>60); Est Glom Filt Rate - Afr Amer 39 mL/min (>60); Glucose 118 mg/dL (74-106); Phosphorus 2.6 mg/dL (2.5-4.9); Potassium 4.3 mmol/L (3.5-5.1); Sodium Level 138 mmol/L (136-145)
== END | disposition home or self-care (01) ==
LOC: LAB 12:25
PROVIDERS: PCP Family Medicine; Referring Provider Internal Medicine Nephrology; Visit Provider Internal Medicine Nephrology
DX: N18.31 Chronic kidney disease, stage 3a (principal)
CPT/HCPCS: 36415; 80069; 82306

== ENCOUNTER 2024-06-05 13:32 | Outpatient (RCR) | payer MEDICARE, SELFPAY | END 2024-06-05 23:59 | LOC: NS 13:32 | PROVIDERS: PCP Family Medicine; Referring Provider Family Medicine; Visit Provider Family Medicine | DX: Z71.3 Dietary counseling and surveillance (principal); E11.9 Type 2 diabetes mellitus without complications | CPT/HCPCS: 97802 ==

== ENCOUNTER → 2024-06-13 | Outpatient (CLI) | payer MEDICARE, SELFPAY ==
--- NOTE | 2024-06-13 12:50 | CT_ITS ---
PROCEDURE: CT CHEST, ABD, PEL W/CONTRAST 06/13/2024 REASON FOR EXAM: KIDNEY CANCER IV CONTRAST ONLY TECHNIQUE: Chest, abdomen and pelvis CT with intravenous contrast. Coronal and Sagittal reconstruction series were provided. One or more dose reduction techniques were used (e.g., Automated exposure control, adjustment of the mA and/or kV according to patient size, use of iterative reconstruction technique. PATIENT PREPARATION: Per protocol ORAL CONTRAST TYPE: None. CONTRAST: Isovue 370 VOLUME: 100mL 18 gauge IV RADIATION DOSE SUMMARY: CTDlvol: 2362.9 mGy DLP: 1507.9 mGycm COMPARISON: None. FINDINGS: CT CHEST: Hardware: None Lymph nodes: No lymphadenopathy. Heart and Vasculature: The heart is normal in size. The great vessels are normal in size and caliber. No pericardial effusion. Lungs and Airways: Central airways are patent. Streaky opacity within the right middle lobe, likely scarring or subsegmental atelectasis. No suspicious parenchymal abnormality. No dominant masses. Pleura: No pleural effusion or pneumothorax. Bones: There is an expansile destructive lesion along the anterolateral right 6th rib measuring approximately 4.9 x 3.6 cm concerning for osseous metastatic disease. CT ABDOMEN/PELVIS: Liver: Unremarkable Gallbladder: Unremarkable Spleen: Unremarkable Pancreas: Unremarkable Adrenals: Unremarkable Kidneys: The right kidney is surgically absent. The left kidney is unremarkable. No left-sided hydronephrosis. Bladder: No focal bladder wall thickening. Reproductive Organs: Unremarkable Bowel: Lack of oral contrast limits evaluation of the bowel. No small bowel or large bowel obstruction or dilation. The appendix is unremarkable. No free fluid. Diverticulosis within the sigmoid colon. Appendix: Unremarkable Lymph nodes: Unremarkable Vasculature: Mild infrarenal aneurysmal dilation of the descending aorta measuring approximately 4.1 x 4.0 cm Peritoneum / Retroperitoneum: Unremarkable Bones: No acute fracture. CT/CT Chest, Abd, Pel w/Contrast IMPRESSION: *Expansile destructive lesion along the anterolateral right 6th rib concerning for osseous metastatic disease. 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 1 x 4.0 cm. *Status post right-sided nephrectomy. Reading Location: [facility]
[2024-06-13 13:18] LABS: CREATININE FINGERSTICK < 1.0 mg/dL (0.70-1.30); EGFR FINGERSTICK > 60.0000 mL/min (>60)
== END | disposition home or self-care (01) ==
PROVIDERS: PCP Family Medicine; Referring Provider Internal Medicine Medical Oncology; Visit Provider Internal Medicine Medical Oncology
DX: C79.51 Secondary malignant neoplasm of bone (principal); C64.1 Malignant neoplasm of right kidney, except renal pelvis
CPT/HCPCS: 71260; 74177; Q9967

== ENCOUNTER → 2024-06-20 | Outpatient (CLI) | payer MEDICARE, SELFPAY ==
[2024-06-20 14:03] LABS: Absolute Lymphocyte Count 1.11 X10^3/uL (0.83-4.51); Absolute Neutrophil Count 4.3 X10^3/uL (2.0-7.7); Basophil# 0.02 X10^3/uL; Basophil% 0.3 % (0-1); Eosinophil# 0.03 X10^3/uL; Eosinophils% 0.5 % (0-5); Hemoglobin 13.8 g/dL (13.0-16.5); Lymphocyte # 1.11 X10^3/ul (0.83-4.51); Lymphocyte % 18.8 % (19-41); Mean Corp Hgb Conc 33.7 g/dL (32-36); Mean Corpuscular Hgb 33.3 pg (27.0-32.0); Mean Platelet Vol. 10.8 fl (6.2-12.0); Monocyte# 0.41 X10^3/uL; Monocyte% 6.9 % (0-10); NRBC Flagged by Analyzer 0 % (0-5); Neutrophil # 4.27 X10^3/uL (2.7-7.7); Neutrophil % 72.1 % (47-70); Platelet Count 233 K/mm3 (150-450); RBC Distribution Width CV 17.2 % (11.6-14.6); RBC Distribution Width SD 62.4 fl (35.1-43.9); Red Blood Count 4.14 M/mm3 (4.6-6.2); White Blood Count 5.9 K/mm3 (4.4-11.0)
[2024-06-20 15:09] LABS: ALB/GLOB Ratio 1.4 RATIO (0.9-2.4); AST(SGOT) 37 U/L (<=37); Alanine Aminotransfer ALT/SGPT 47 U/L (<=46); Alkaline Phosphatase 47 U/L (40-129); Anion Gap 10 (5-15); BUN 15 mg/dL (4-19); Calcium,Total 9.7 mg/dL (7.6-11.0); Chloride 100 mmol/L (98-108); Creatinine, Serum 1.89 mg/dL (0.70-1.20); EST Glomerular Filtration Rate 40 (>60); Globulin 2.8 g/dL (2.2-4.2); Glucose 97 mg/dL (70-99); LDH 249 U/L (87-241); Potassium 4.5 mmol/L (3.3-5.1); Protein, Total 6.7 g/dL (5.9-8.4); Sodium Level 136 mmol/L (133-145); Total Bilirubin 0.39 mg/dL (0.00-1.30)
== END | disposition home or self-care (01) ==
LOC: LAB 12:29
PROVIDERS: PCP Family Medicine; Referring Provider Internal Medicine Medical Oncology; Visit Provider Internal Medicine Medical Oncology
DX: C79.51 Secondary malignant neoplasm of bone (principal); C64.1 Malignant neoplasm of right kidney, except renal pelvis
CPT/HCPCS: 36415; 80053; 83615; 85025

== ENCOUNTER 2024-08-14 14:52 | Outpatient (RCR) | payer MEDICARE, SELFPAY | END 2024-09-04 23:59 | LOC: NS 14:52 | PROVIDERS: PCP Family Medicine; Referring Provider Family Medicine; Visit Provider Family Medicine | DX: Z71.3 Dietary counseling and surveillance (principal); E11.9 Type 2 diabetes mellitus without complications | CPT/HCPCS: 97803 ==

== ENCOUNTER → 2024-08-14 | Outpatient (CLI) | payer MEDICARE, SELFPAY ==
[2024-08-14 14:03] LABS: Absolute Lymphocyte Count 1.02 X10^3/uL (0.83-4.51); Absolute Neutrophil Count 3.6 X10^3/uL (2.0-7.7); Basophil# 0.02 X10^3/uL; Basophil% 0.4 % (0-1); Eosinophil# 0.12 X10^3/uL; Eosinophils% 2.2 % (0-5); Hematocrit 41.7 % (40-54); Hemoglobin 13.9 g/dL (13.0-16.5); Lymphocyte # 1.02 X10^3/ul (0.83-4.51); Lymphocyte % 18.9 % (19-41); Mean Corp Hgb Conc 33.3 g/dL (32-36); Mean Corpuscular Hgb 32.5 pg (27.0-32.0); Mean Corpuscular Volume 97.4 fL (80-94); Mean Platelet Vol. 10.4 fl (6.2-12.0); Monocyte# 0.61 X10^3/uL; Monocyte% 11.3 % (0-10); NRBC Flagged by Analyzer 0 % (0-5); Neutrophil # 3.63 X10^3/uL (2.7-7.7); Platelet Count 209 K/mm3 (150-450); RBC Distribution Width CV 16.6 % (11.6-14.6); RBC Distribution Width SD 59.1 fl (35.1-43.9); Red Blood Count 4.28 M/mm3 (4.6-6.2); White Blood Count 5.4 K/mm3 (4.4-11.0)
[2024-08-14 14:43] LABS: Anion Gap 10 (5-15); BUN 21 mg/dL (4-19); BUN/Creat Ratio 9.5 RATIO (10-20); Calcium,Total 9.5 mg/dL (7.6-11.0); Carbon Dioxide 26.2 mmol/L (21.0-32.0); Chloride 102 mmol/L (98-108); Creatinine, Serum 2.22 mg/dL (0.70-1.20); EST Glomerular Filtration Rate 33 (>60); Glucose 101 mg/dL (70-99); Magnesium 2.3 mg/dL (1.5-2.2); Potassium 4.7 mmol/L (3.3-5.1); Sodium Level 138 mmol/L (133-145)
== END | disposition home or self-care (01) ==
LOC: LAB 13:44
PROVIDERS: PCP Family Medicine; Referring Provider Nurse Practitioner Gerontology; Visit Provider Nurse Practitioner Gerontology
DX: I48.91 Unspecified atrial fibrillation (principal)
CPT/HCPCS: 36415; 80048; 83735; 84443; 85025

== ENCOUNTER → 2024-09-25 | Outpatient (CLI) | payer MEDICARE, SELFPAY ==
--- NOTE | 2024-09-25 06:25 | ECHOD_ITS ---
Reason For Study Reason For Study: AFIB Procedure This was a 2D Doppler, Color Flow transthoracic echocardiogram. Exam performed in department. Left Ventricle Normal LV size. Moderate concentric left ventricular hypertrophy. The left ventricular ejection fraction is 50 %. There is borderline global hypokinesis of the left ventricle. Right Ventricle Normal RV size. Normal systolic function. Atria The left atrium is moderately enlarged. The right atrium is mildly enlarged. Mitral Valve Normal mitral valve. Mild-Moderate (1-2+) eccentric mitral valve insufficiency. Tricuspid Valve Normal tricuspid valve. Mild (1+) tricuspid valve insufficiency. Pulmonary artery systolic pressure is 32 mmHg. Aortic Valve Trisinus/trileaflet aortic valve. Moderate (2+) eccentric aortic valve insufficiency. Pulmonic Valve Normal pulmonic valve. Great Vessels Mildly dilated aortic root. The pulmonary artery is normal size. Inferior vena cava collapse with respiration. Pericardium/Pleural No pericardial effusion. MMode/2D Measurements & Calculations LVIDd: 5.6 cm IVSd: 1.5 cm Ao root diam: 3.8 cm LVIDs: 4.8 cm LVPWd: 1.5 cm FS: 15.1 % LAV(MOD-bp): 107.8 ml LVAd ap4: 40.2 cm2 SV(MOD-sp4): 71.5 ml LAV(MOD-bp) Indexed: 46.0 ml/m2 LVLd ap4: 8.5 cm SI(MOD-sp4): 30.5 ml/m2 LAV(MOD-sp2): 119.2 ml EDV(MOD-sp4): 154.2 ml LAV(MOD-sp4): 99.6 ml EDV(sp4-el): 162.1 ml LVAs ap4: 27.3 cm2 LVLs ap4: 7.5 cm ESV(MOD-sp4): 82.7 ml ESV(sp4-el): 84.5 ml EF(MOD-sp4): 46.4 % EF(sp4-el): 47.8 % SV(sp4-el): 77.5 ml LA A4 area: 28.2 cm2 LA dimension(2D): 5.2 cm RA A4 area: 21.7 cm2 Doppler Measurements & Calculations MV E max greyson: 85.3 cm/sec MV P1/2t max greyson: 89.2 cm/sec Ao V2 max: 127.4 cm/sec Ao max P.5 mmHg Ao V2 mean: 98.4 cm/sec Ao mean P.2 mmHg Ao V2 VTI: 22.9 cm PA V2 max: 67.2 cm/sec TR max greyson: 266.4 cm/sec PA V2 mean: 50.9 cm/sec TR max P.4 mmHg ECHO/Echo Complete Interpretation Summary Normal LV size. Moderate concentric left ventricular hypertrophy. The left ventricular ejection fraction is 50 %. There is borderline global hypokinesis of the left ventricle. Mild-Moderate (1-2+) eccentric mitral valve insufficiency. Mild (1+) tricuspid valve insufficiency. Moderate (2+) eccentric aortic valve insufficiency. Ordering Physician: Gini Couch Referring Physician: Gini Couch Performed By: [facility]
--- OUTSIDE RECORDS SUMMARY | 2024-09-25 06:30 | XMS RPT_ITS | CCD ---
Author Organization [facility] Care Team Providers Care [place] Reporter Name Role Phone Unavailable, Family Physician Primary Care Physi terese Unavailable Jillian Maurer DO Primary Care Provider [phone] Daksha Turner MD Primary Care Provider Sumi HAHN, Sary Unavailable Unavailable Lalo Acevedo MD Unavailable Rahul Knight RN Unavailable Madiha vailable [facility] located [facility], [place] Unavailable Daksha Turner MD Primary Care Provider Sumi HAHN, Sary Unavailable Unavailable Lalo Acevedo MD Unavailable Rahul Knight RN Unavailable Madiha vailable Brodman RP, Safia Unavailable Daksha Turner MD Primary Care Provider Lalo Acevedo MD Unavailable Rahul Knight RN Unavailable Madiha vailable Haylee Wilburn MD Unavailable [phone] Alfredo Xavier MD Unavailable Haylee Wilburn MD Unavailable [phone] Unavailable Primary Care Provider Unavailabl Dr. Jose Ramon Rincon Primary Care Provider Dr. Speedy Bass Emergency Provider Dr. Mehrdad Villalpando Admit Provider Dr. Mehrdad Villalpando Attending Provider Dr. Mehrdad Villalpando Other Provider Dr. Moises Gaona Attending Provider Dr. Rahul Malone Attending Provider Unavailable Dr. Rahul Malone Other Provider Unavailable Daksha Turner MD Primary Care Provider Sary Teresa Unavailable Unavailable Wayne CLEMENT, Lalo Unavailable Eugene LOPEZ, Rahul Candelaria Unavailable Madiha dee Wilburn MD, Haylee Cunningham Unavailable Duc CLEMENT, Alfredo Sherwood Unavailable Daksha Turner Unavailable Unavailable, Family Physician Primary Care Un available Unavailable, Family Physician Consulting Un available Siri Harris Attending Unavailable Daksha Turner Unavailable Andre Mota Unavailable Unavailable KleindaleGerard lozarit Unavailable Aravind Hernandez Unavailable Unavailable Alyssa London Unavailable Nellie CLEMENT, Sayra Martinez Unavailable ORNSTEIN, KENNETH Referring Unavailable ROCCHIO, JILLIAN Primary Care Unavailable ORNSTEIN, KENNETH Referring Unavailable ROCCHIO, JILLIAN Primary Care Unavailable ORNSTEIN, KENNETH Referring Unavailable DAKSHA TURNER Primary Care Unavailabl e ORNSTEIN, KENNETH Referring Unavailable DAKSHA TUNRER Primary Care Unavailabl e DAKSHA MELO Referring Unavaila ble JANUSZ TURNERER Abdirahman Primary Care Unavailabl e JANUSZ TURNERER Abdirahman Primary Care Unavailabl e ORNSTEIN, KENNETH Referring Unavailable JANUSZ TURNERER Abdirahman Primary Care Unavailabl e RADHA FALK Attending Unavailable DAKSHA TURNER Primary Care Unavailabl e CHO, SUNG JASON L Admitting Unavailable ANTONIETA, SUNErik JASON L Attending Unavailable JANUSZ TURNERER B Primary Care Unavailabl e ISABEL DAY Admitting Unavailable ISABEL DAY Attending Unavailable DAWIT URBINA MD Attending Unavailable ROCCHIO, JILLIAN Primary Care Unavailable ORNSTEIN, KENNETH Referring Unavailable JOHNNY, CHRISTOPHER B Primary Care Unavailabl e GODFREY OHARA Attending Unavailable JANUSZ TURNERER Abdirahman Primary Care Unavailabl e ORNSTEIN, KENNETH Referring Unavailable CHO, SUNG JASON L Referring Unavailable JANUSZ TURNERER Abdirahman Primary Care Unavailabl e RANNEY, CHRISTOPHER B Primary Care Unavailabl e TERRASHANTALALO MAURICIO Referring Unavailable ATUL FUNG Attending Unavailable ORNSTEIN, KENNETH Referring Unavailable DAKSHA TURNER Primary Care Unavailabl e GODFREY OHARA Attending Unavailable ADRIANA HODGE Referring Unavailable ROCCHIO, JILLIAN Primary Care Unavailable TRESA, JOHN Referring Unavailable ROCCHIO, JILLIAN Primary Care Unavailable ORNSTEIN, KENNETH Attending Unavailable ADRIANA HODGE Referring Unavailable ROCCHIO, JILLIAN Primary Care Unavailable ORNSTEIN, KENNETH Referring Unavailable ROCCHIO, JILLIAN Primary Care Unavailable ORNSTEIN, KENNETH Referring Unavailable GODFREY OHARA Attending Unavailable ROCCHIO, JILLIAN Primary Care Unavailable STEPHANY CEBALLOS Referring Unavailable ROCCHIO, JILLIAN Primary Care Unavailable DAKSHA TURNER Primary Care Unavailabl e KHAN, ANGELA Admitting Unavailable LEW KHANA Attending Unavailable ORNSTEIN, KENNETH Referring Unavailable DAKSHA TURNER Primary Care Unavailabl e ORNSTEIN, KENNETH Referring Unavailable DAKSHA TURNER Primary Care Unavailabl e ORNSTEIN, KENNETH Referring Unavailable DAKSHA TURNER Primary Care Unavailabl e DAKSHA TURNER Primary Care Unavailabl e ADRIANA HODGE Referring Unavailable ORNSTEIN, KENNETH Referring Unavailable DAKSHA TURNER Primary Care Unavailabl e ORNSTEIN, KENNETH Referring Unavailable DAKSHA TURNER Primary Care Unavailabl e GODFREY OHARA Attending Unavailable MELISSASTEIN, KENNETH Referring Unavailable DAKSHA TURNER Primary Care Unavailabl e ORNSTEIN, KENNETH Referring Unavailable DAKSHA TURNER Primary Care Unavailabl e GODFREY OHARA Attending Unavailable ADRIANA HODGE Attending Unavailable ADRIANA HODGE Referring Unavailable ROCCHIO, JILLIAN Primary Care Unavailable ORNSTEIN, KENNETH Referring Unavailable DAKSHA TURNER Primary Care Unavailabl e DAKSHA TURNER Primary Care Unavailabl e KHAN, ANGELA Referring Unavailable CHAKA SCANLON Attending Unavailable DAKSHA TURNER Primary Care Unavailabl e DAKSHA MELO Referring Unavaila DAKSHA Mathias Primary Care Unavailabl e DAKSHA MELO Referring Unavaila DAKSHA Mathias Primary Care Unavailabl e DAKSHA TURNER Primary Care Unavailabl e ADRIANA HODGE Referring Unavailable DAKSHA TURNER Primary Care Unavailabl e PRIMO VIEIRA Referring Unavailable DAKSHA TURNER Primary Care Unavailabl e ADRIANA HODGE Referring Unavailable DAKSHA TURNER Primary Care Unavailabl e ADRIANA HODGE Referring Unavailable DAKSHA TURNER Primary Care Unavailabl e ADRIANA HODGE Referring Unavailable ORNSTEIN, KENNETH Referring Unavailable GODFREY OHARA Attending Unavailable ROCCHIO, JILLIAN Primary Care Unavailable ORNSTEIN, KENNETH Referring Unavailable DAKSHA TURNER Primary Care Unavailabl e ORNSTEIN, KENNETH Referring Unavailable DAKSHA TURNER Primary Care Unavailabl e ORNSTEIN, KENNETH Referring Unavailable DAKSHA TURNER Primary Care Unavailabl e DAWIT URBINA MD Referring Unavailable ROCCHIO, JILLIAN Primary Care Unavailable ORNSTEIN, KENNETH Attending Unavailable ORNSTEIN, KENNETH Referring Unavailable DAKSHA TURNER Primary Care Unavailabl e DAKSHA TURNER Primary Care Unavailabl e MOUDGIL, LALO Attending Unavailable MOUDGIL, LAOL Referring Unavailable MOUDGIL, LALO Referring Unavailable DAKSHA TURNER Primary Care Unavailabl e MOSHANTAGIL, LALO Attending Unavailable MORAYAL, LALO Referring Unavailable DAKSHA TURNER Primary Care Unavailabl e DAKSHA TURNER Primary Care Unavailabl e ORNSTEIN, KENNETH Referring Unavailable DAKSHA MELO Referring Unavaila ble DAKSHA TURNER Primary Care Unavailabl e ORNSTEIN, KENNETH Referring Unavailable DAKSHA TURNER Primary Care Unavailabl e ORNSTEIN, KENNETH Referring Unavailable DAKSHA TURNER Primary Care Unavailabl e DAKSHA TURNER Primary Care Unavailabl e GODFREY OHARA Referring Unavailable ADRIANA HODGE Referring Unavailable ROCCHIO, JILLIAN Primary Care Unavailable ADRIANA HODGE Referring Unavailable ROCCHIO, JILLIAN Primary Care Unavailable ADRIANA HODGE Referring Unavailable ROCCHIO, JILLIAN Primary Care Unavailable DAKSHA TURNER Primary Care Unavailabl e DAKSHA TURNER Primary Care Unavailabl e ORNSTEIN, KENNETH Referring Unavailable DAKSHA TURNER Primary Care Unavailabl e ORNSTEIN, KENNETH Referring Unavailable DAKSHA TURNER Primary Care Unavailabl e GODFREY OHARA Attending Unavailable ANNE-MARIE CHAPARRO Admitting Unavailable ANNE-MARIE CHAPARRO Attending Unavailable JILLIAN MAURER Primary Care Unavailable Johnny, Dr. Albright Primary Care Provider [phone] Dr. Kei Dunn Emergency Provider Dr. Dangelo Camacho Admit Provider Janice, Dr. Pierson Other Provider Dr. Carol Chiu Attending Provider Dr. Carol Chiu Other Provider Dr. Moises Gaona Attending Provider [phone] Hoa Ma Attending Provider [phone] Jimenez, Dr. De Leon Referring Provider [phone] MARY, Dr. ARAVIND RODRIGUEZ Referring Unavailab raymon Turner, Dr. Daksha Lugo Primary Care Madiha vailable MARY, Dr. ARAVIND RODRIGUEZ Admitting Unavailab le MARY, Dr. ARAVIND RODRIGUEZ Attending Unavailab le MARY, Dr. ARAVIND RODRIGUEZ Attending Unavailab raymon Turner, Dr. Daksha Lugo Primary Care Madiha vailable Johnny, Dr. Albright Primary Care Provider [phone] Dr. Kei Dunn Emergency Provider Dr. Dangelo Camacho Admit Provider Dr. Dangelo Camacho Other Provider Dr. Carol Chiu Attending Provider Dr. Carol Chiu Other Provider Dr. Moises Gaona Attending Provider [phone] Moises Gaona Referring Provider [phone] Hoa Ma Attending Provider [phone] HAYLEE WILUBRN Attending Unavailable GODFREY OHARA Referring Unavailable DAKSHA TURNER Primary Care Unavailabl e HAYLEE WILBURN Attending Unavailable HAYLEE WILBURN Referring Unavailable DAKSHA TURNER Primary Care Unavailabl e DUC, EDWARD J Attending Unavailable KARIN COX Referring Unavailable DAKSHA TURNER Primary Care Unavailabl e DUC, EDWARD J Attending Unavailable DUC, EDWARD J Referring Unavailable JOHNNY, JANUSZER B Primary Care Unavailabl e DUC, EDWARD J Attending Unavailable XAVIER, EDWARD J Referring Unavailable JANUSZ TURNERER B Primary Care Unavailabl e DUC, EDWARD J Referring Unavailable DAKSHA TURNER B Primary Care Unavailabl e DUC, EDWARD J Referring Unavailable DAKSHA TURNER B Primary Care Unavailabl e DUC, EDWARD J Referring Unavailable DAKSHA TURNER B Primary Care Unavailabl e DUC, EDWARD J Referring Unavailable DAKSHA TURNER Primary Care Unavailabl e JOHNNY, DAKSHA B Primary Care Unavailabl e KITTY VALDEZ Referring Unavailable DAKSHA TURNER Primary Care Unavailabl e SUMAN PETERSON Attending Unavailable SUMAN PETERSON Referring Unavailable DAKSHA TURNER Primary Care Unavailabl e SAYRA TELLO Attending Unavailabl e DAKSHA TURNER Referring Unavailabl e DAKSHA TURNER Primary Care Unavailabl e HAYLEE WILBURN Attending Unavailable HAYLEE WILBURN Referring Unavailable DAKSHA TURNER Primary Care Unavailabl e SAYRA TELLO Referring Unavailabl e DAKSHA TURNER Primary Care Unavailabl e HAYLEE WILBURN Attending Unavailable HAYLEE WILBURN Referring Unavailable DAKSHA TURNER Primary Care Unavailabl e HAYLEE WILBURN Referring Unavailable DAKSHA TURNER Primary Care Unavailabl e HAYLEE WILBURN Referring Unavailable DAKSHA TURNER Primary Care Unavailabl e HAYLEE WILBURN Referring Unavailable DAKSHA TURNER Primary Care Unavailabl e HAYLEE WILBURN Referring Unavailable DAKSHA TURNER Primary Care Unavailabl e HAYLEE WILBURN Attending Unavailable HAYLEE WILBURN Referring Unavailable DAKSHA TURNER Primary Care Unavailabl e DAKSHA TURNER Primary Care Unavailabl e Dr. Kassy Banda Emergency Provider [phone] Dr. Alicia Dukes Admit Provider Dr. Alicia Dukes Other Provider Dr. Jesús Che Attending Provider Dr. Jesús Che Other Provider Dr. Jose Ramon Turner Referring Provider Dr. Dangelo Botello Attending Provider Dr. Livan Hastings Emergency Provider Tabitha, Dr. Estelita Prescott Admit Provider Tabitha, Dr. Estelita Prescott Other Provider Eriberto, Dr. Pau Harris Other Provider Johnny, Dr. Daksha Lugo Primary Care Madiha vailable Johnny, Dr. Daksha Lugo Referring Madiha vailable [place], Dr. Aravind Rodriguez Attending Unavailab le Johnny, Dr. Daksha Lugo Attending Madiha vailable Johnny, Dr. Daksha Lugo Primary Care Madiah vailajames Turner, Dr. Albright Primary Care Provider Dr. Moises Gaona Attending Provider Dr. Carol Chiu Attending Provider Dr. aCrol Chiu Other Provider Dr. Jose Ramon Turner Other Provider Dr. Chase Gray Attending Provider Dr. Jose Ramon Turner Primary Care Provider Dr. Jose Ramon Turner Referring Provider Dr. Dangelo Botello Attending Provider Long GEE, [place] Primo Waters Attending Provider Dr. Speedy Bass Emergency Provider Dr. Marquies Padilla Admit Provider Dr. Marquise Padilla Attending Provider Dr. Marquise Padilla Other Provider Dr. Carol Chiu Attending Provider Dr. Carol Chiu Other Provider Dr. Jose Ramon Turner Primary Care Provider Dr. Jose Ramon Turner Referring Provider Dr. Jose Ramon Turner Primary Care Provider Dr. Speedy Bass Emergency Provider Dr. Marquise Padilla Admit Provider Dr. Marquise Padilla Attending Provider Dr. Marquise Padilla Other Provider Dr. Carol Chiu Attending Provider Dr. Carol Chiu Other Provider Dr. Jose Ramon Turner Primary Care Provider Dr. Jose Ramon Turner Referring Provider Dr. Dangelo Botello Attending Provider Dr. Jose Ramon Turner Primary Care Provider Dr. Jose Ramon Turner Referring Provider Dr. Dangelo Botello Attending Provider Daksha Turner MD Primary Care Provider Wayne CLEMENT, Lalo Unavailable Eugene LOPEZ, Rahul Candelaria Unavailable Madiha dee Tello MD, [facility] N Unavailable Dr. Daksha Turner MD Primary Care Provider Dr. Daksha Turner MD Attending Provider Dr. Daksha Turner MD Referring Provider Dr. Isidra Chiu DO Attending Provider Dr. Isidra Chiu DO Referring Provider Dr. Daksha Turner MD Primary Care Provider Dr. Daksha Turner MD Attending Provider Johnny CLEMENT, Dr. Candelaria Referring Provider Ayan CLEMENT, Dr. Pierson Attending Provider [phone] Ayan CLEMENT, Dr. Pierson Referring Provider Johnny CLEMENT, Dr. Candelaria Primary Care Provider Khoa SLATE HANDLER-C, Gini Attending Provider Khoa SLATE HANDLER-C, Gini Referring Provider Daksha Turner Attending Unavailable Ranney, Christopher Primary Care Unavailable Ranney, Christopher Referring Unavailable Ranney, Christopher Primary Care Unavailable Prah, Dangelo Attending Unavailable Prah, Dangelo Referring Unavailable Ranney, Christopher Primary Care Unavailable Ranney, Christopher Referring Unavailable Couch SLATE HANDLER, Gini Attending Unavailable Ranney, Christopher Referring Unavailable Couch SLATE HANDLER, Gini Attending Unavailable Ranney, Christopher Primary Care Unavailable Ranney, Christopher Primary Care Unavailable Ranney, Christopher Referring Unavailable Long GEE, Primo Waters Attending Unavail able Ranney, Christopher Referring Unavailable Prah, Dangelo Attending Unavailable Ranney, Christopher Primary Care Unavailable Ranney, Christopher Referring Unavailable Couch SLATE HANDLER, Gini Attending Unavailable Ranney, Christopher Primary Care Unavailable Ranney, Christopher Primary Care Unavailable Ranney, Christopher Referring Unavailable Prah, Dangelo Attending Unavailable Ranney, Christopher Primary Care Unavailable Prah, Dangelo Referring Unavailable Praguillermo, Dangelo Attending Unavailable PrahDangelo Referring Unavailable Prah, Dangelo Attending Unavailable Ranney, Christopher Primary Care Unavailable Ranney, Christopher Primary Care Unavailable Khoa SLATE HANDLER, Gini Referring Unavailable Khoa SLATE HANDLER, Gini Attending Unavailable Ranney, Christopher Primary Care Unavailable AramKimoIsidra Referring Unavailable Isidra Chiu Attending Unavailable RanneyDaksha Attending Unavailable Ranney, Christopher Primary Care Unavailable Ranney, Christopher Referring Unavailable Ranney, Christopher Primary Care Unavailable Prah, Dangelo Referring Unavailable Prah, Dangelo Attending Unavailable Ranney, Christopher Primary Care Unavailable Ranney, Christopher Referring Unavailable Ranney, Daksha Attending Unavailable Ranney, Daksha Attending Unavailable Ranney, Christopher Primary Care Unavailable Ranney, Christopher Referring Unavailable Ranney, Daksha Attending Unavailable Ranney, Christopher Primary Care Unavailable Ranney, Christopher Referring Unavailable Allergies Allergy Classification Reported Allergen(s) Allergy Type Date of Onset Reaction(s) Facility (20 sources) Aspirin; Translations: [Aspirin TABS] Drug Allergy 5 Hives, Intolerance [facility] (20 sources) Lisinopril; Translations: [Lisinopril TABS] Drug Allergy 3 Angioedema [facility] (20 sources) Penicillins; Translations: [Penicillins] Allergy to substance 4 Intolerance [facility] (20 sources) Shellfish; Translations: [shellfish derived] Allergy to substance 0 Anaphylaxis [facility] (20 sources) Shellfish; Translations: [SHELLFISH CONTAINING PRODUCTS] Drug Allergy 0 Anaphylaxis, [facility] (20 sources) cultivated mushroom extract; Translations: [MUSHROOM] Drug Allergy 2 [facility] (3 sources) Aluminum aspirin Drug Allergy 9 [facility] (3 sources) Shellfish-deriv ed Products; Translations: [Shellfish-deri angy Products] Allergy to drug (finding) [address] [address] DO Work Phone: (1 source) Mushroom (edible) Unknown [facility] (1 source) Penicillin Drug Allergy Unknown [facility] (1 source) Shellfish Unknown [facility] (14 sources) guaiFENesin Drug Allergy 3 Bleeding [facility] (1 source) Aspirin Drug Allergy 5 [facility] (1 source) guaiFENesin Drug Allergy 5 [facility] (1 source) Lisinopril Drug Allergy 5 [facility] (1 source) Mushroom (edible) Drug allergy (disorder) 5 [facility] Medications Current Medications Medication Drug Class(es) Dates Sig (Normalized) Sig (Original) acetaminophen 500 mg oral tablet (20 sources) Start: 07-15-2021 take 2 tablets by mouth every six hours as needed acetaminophen (TYLENOL EXTRA STRENGTH) 500 mg tablet Take 2 tablets by mouth every 6 hours as needed for pain. 100 tablet 07/15/2021 Active Comment on above: Take 2 tablets by [facility] every 6 hours as needed for pain. albuterol 0.83 mg/ml inhalation solution (20 sources) beta2-Adrenergic Agonist Start: 06-27-2022 End: 06-29-2022 Albuterol Sulfate 2.5 mg /3 mL (0.083 %) solution for nebulization Active 2.5 mg INHALATION NEEDED as needed for Shortness Of Breath 75 0 June 29, 2022 11:13am Start: 01-28-2022 albuterol (PRO VENTIL) 2.5 mg /3 mL (0.083 %) nebulizer solution 01/28/2022 Active Start: 01-26-2022 Albuterol Sulf ate HFA 108 (90 Base) MCG/ACT Inhalation Aerosol Solution Quantity: 8 Refills: 0 Ordered: 29-Jan-2022 DO Start : 26-Jan-2022 Active Start: 12-07-2021 End: 06-29-2022 take 90 ug by inhalation every four hours as needed Albuterol Discontinued 90 MCG INHALATION EVERY 4 HOURS NEEDED December 06, 2021 11:00pm June 29, 2022 10:08am Start: 12-07-2021 End: 06-29-2022 take 90 ug by inhalation every four hours as needed Albuterol Discontinued 90 MCG INHALATION EVERY 4 HOURS NEEDED December 07, 2021 12:00am June 29, 2022 11:08am Start: 12-07-2021 take 90 ug by inhala tion every four hours as needed Albuterol Active 90 MCG INHALATION EVERY 4 HOURS NEEDED December 07, 2021 12:00am Start: 12-07-2021 take 90 ug by inhala tion every four hours as needed Albuterol Active 90 MCG INHALATION EVERY 4 HOURS NEEDED December 06, 2021 11:00pm Start: 12-07-2021 Albuterol Acti ve MCG INHALATION December 07, 2021 12:00am Start: 08-17-2021 take 2 puff(s) by in halation every four hours as needed for wheezing albuterol HFA (PROVENTIL HFA, VENTOLIN HFA) 90 mcg/actuation inhaler Inhale 2 Puffs as instructed every 4 hours as needed for wheezing/shortness of breath. 1 Inhaler 08/17/2021 Active albuterol sulfat e 90 mcg/actuation aebs Inhale 1 Puff as instructed as needed. 0 Suspended Comment on above: Inhale 1 Puff as ins tructed as needed. Inhale 2 Puffs as in structed every 4 hours as needed for wheezing/shortness of breath. amLODIPine 10 mg oral tablet (20 sources) Dihydropyridine Calcium Channel Bettye Start: 02-10-2022 amLODIPine Besylate 10 MG Oral Tablet Quantity: 30 Refills: 0 Ordered: 10-Feb-2022 DO Start : 10-Feb-2022 Active Start: 02-10-2022 End: 03-11-2022 amLODIPine (NORVASC) 10 mg t ablet 02/10/2022 Active Start: 06-04-2019 End: 12-09-2021 take 1 tablet by mouth once daily Amlodipine (Norvasc) 5 MG tablet Discontinued 5 mg PO DAILY June 04, 2019 12:00am December 09, 2021 7:58am Comment on above: Take 1 tablet by kellie th once daily. apixaban 5 mg oral tablet (3 sources) Factor Xa Inhibitor Start: take 1 tablet by mouth twice daily Apixaban (Eliquis) 5 mg tablet Active 5 mg PO TWICE A DAY 60 11 August 14, 2024 12:00am cabozantinib 20 mg oral tablet (20 sources) Kinase Inhibitor Start: take 1 tablet by mouth once daily Cabozantinib 20 mg tablet Active 20 mg PO daily August 09, 2024 12:00am Start: 11-28-2021 End: 05-04-2024 take 1 tablet by mouth once daily Cabozantinib 20 mg tablet Discontinued 20 mg PO DAILY 30 30 0 April 04, 2024 4:41pm May 03, 2024 1:00am May 04, 2024 1:13am Secondary renal cell carcinoma of bone Secondary malignant neoplasm of bone Malignant neoplasm of unspecified kidney, except renal pelvis Start: 11-19-2021 take 1 tablet by kelile th once daily cabozantinib (CABOMETYX) 20 mg tablet Indications: Renal cell carcinoma of right kidney (HCC) Take 1 tablet (20 mg) by mouth once daily. 30 tablet 11 11/19/2021 Active Start: 11-19-2021 take 1 tablet by kellie th once daily cabozantinib (CABOMETYX) 20 mg tablet Indications: Renal cell carcinoma of right kidney (HCC) Take 1 tablet (20 mg) by mouth once daily. 30 tablet 11/19/2021 Active Start: 11-19-2021 take 1 tablet by kellie th once daily cabozantinib (CABOMETYX) 20 mg tablet Indications: Renal cell carcinoma of right kidney (HCC) Take 1 tablet (20 mg) by mouth once daily. 30 tablet 11/19/2021 Active Start: 11-19-2021 take 1 tablet by kellie th once daily cabozantinib (CABOMETYX) 20 mg tablet Indications: Renal cell carcinoma of right kidney (HCC) Take 1 tablet (20 mg) by mouth once daily. 30 tablet 11/19/2021 Active Start: 11-19-2021 take 1 tablet by kellie th once daily cabozantinib (CABOMETYX) 20 mg tablet Take 1 tablet (20 mg) by mouth once daily. 30 tablet 11/19/2021 Active Start: 11-19-2021 take 1 tablet by kellie th once daily cabozantinib (CABOMETYX) 20 mg tablet Take 1 tablet (20 mg) by mouth once daily. 30 tablet 11/19/2021 Active Start: 11-19-2021 End: 10-21-2021 take 1 tablet by mouth once daily cabozantinib (CABOMETYX) 20 mg tablet Take 1 tablet (20 mg) by mouth once daily. 30 tablet 11/19/2021 10/21/2021 Discontinued Start: 11-19-2021 take 1 tablet by kellie th once daily cabozantinib (CABOMETYX) 20 mg tablet Take 1 tablet (20 mg) by mouth once daily. 30 tablet 11/19/2021 Active Start: 11-19-2021 End: 10-21-2021 take 1 tablet by mouth once daily cabozantinib (CABOMETYX) 20 mg tablet Take 1 tablet (20 mg) by mouth once daily. 30 tablet 11/19/2021 10/21/2021 Discontinued Start: 10-28-2021 Cabometyx 20 M G Oral Tablet Quantity: 30 Refills: 0 Ordered: 13-Mar-2022 DO Start : 28-Oct-2021 Active Comment on above: Take 20 mg by mouth once daily. Take 1 tablet (20 mg ) by mouth once daily. once daily. carvedilol 12.5 mg oral tablet (20 sources) alpha-Adrenergic Bettye, beta-Adrenergic Bettye Start: 06-03-2023 End: 06-04-2024 take 1 tablet by mouth twice daily Carvedilol 12.5 mg tablet Active 12.5 mg PO TWICE A DAY 180 June 04, 2024 8:09am Start: 06-27-2022 End: 06-03-2023 Carvedilol 12.5 mg tablet Discontinued 18.75 mg PO TWICE A DAY 90 0 June 29, 2022 11:13am September 29, 2022 1:49pm Start: 06-27-2022 End: 09-29-2022 take 18.75 mg by mouth twice daily Carvedilol Discontinued 18.75 MG PO TWICE A DAY 90 June 29, 2022 11:13am September 29, 2022 1:49pm Start: 05-27-2022 End: 06-27-2022 take 1 tablet by mouth twice daily Carvedilol 12.5 mg tablet Discontinued 12.5 mg PO TWICE A DAY 180 May 27, 2022 11:08am June 27, 2022 11:27pm Start: 02-10-2022 carvedilol (CO REG) 12.5 mg tablet once daily. 02/10/2022 Active Start: 02-10-2022 Carvedilol 12. 5 MG Oral Tablet Quantity: 60 Refills: 0 Ordered: 10-Feb-2022 DO Start : 10-Feb-2022 Active Start: 02-10-2022 End: 03-11-2022 carvedilol (COREG) 12.5 mg t ablet Start: 12-07-2021 End: 05-27-2022 take 2 tablets by mouth once daily Carvedilol 6.25 mg tablet Discontinued 12.5 mg PO DAILY December 07, 2021 12:00am May 27, 2022 11:11am Start: 12-07-2021 End: 05-27-2022 take 12.5 mg by mouth once daily Carvedilol Discontinu ed 12.5 MG PO DAILY December 07, 2021 12:00am May 27, 2022 11:11am Start: 12-07-2021 Carvedilol Act you 6.25 MG DAILY December 06, 2021 11:00pm Start: 12-07-2021 Carvedilol Act you 0 .ROUTE .COMPLEX December 06, 2021 11:00pm 3 TAB, TWICE DAILY Start: 09-04-2021 End: 02-16-2022 take 3 tablets by mouth twice daily carvedilol (COREG) 6.25 mg tablet Take 3 tablets by mouth twice daily. 180 tablet 0 09/04/2021 02/16/2022 Discontinued Start: 08-27-2021 End: 09-03-2021 take 1 tablet by mouth twice daily at mealtime carvedilol (COREG) 6.25 mg tablet Take 1 tablet by mouth twice daily with meals. Take in addition to the 12.5 mg tablets to total 18.75 mg dose. 60 tablet 0 08/27/2021 09/03/2021 Discontinued Start: 07-22-2021 End: 08-19-2021 take 1 tablet by mouth twice daily carvedilol (COREG) 12.5 mg tablet Indications: Essential hypertension Take 1 tablet by mouth twice daily. 180 tablet 3 08/19/2021 Suspended Comment on above: Take 1 tablet by kellie th twice daily with meals. Take 1 tablet by kellie th twice daily. Take 1 tablet by kellie th twice daily with meals. Take in addition to the 12.5 mg tablets to total 18.75 mg dose. Take 3 tablets by mo [facility] twice daily. once daily. cetirizine hydrochloride 5 mg oral tablet (19 sources) Histamine-1 Receptor Antagonist Start: 12-14-19 End: 07-16-19 take 2 tablets by mouth once daily cetirizine (ZYRTEC) 5 MG tablet Take 2 Tabs by mouth daily 60 Tab 0 12/14/2011 Active Comment on above: Take 10 mg by mouth. cyclobenzaprine hydrochloride 10 mg oral tablet (20 sources) Muscle Relaxant Start: 12-08-19 take 1 tablet by mouth three times daily as needed for muscle spasms Cyclobenzaprine 10 mg Tablet Active 10 mg PO THREE TIMES A DAY as needed for Spasms December 07, 2021 12:00am Start: 11-19-2021 Cyclobenzaprin e HCl - 10 MG Oral Tablet Quantity: 90 Refills: 0 Ordered: 19-Nov-2021 DO Start : 19-Nov-2021 Active Start: 03-26-2015 End: 12-04-2015 take 1 tablet by mouth three times daily as needed for muscle spasms Cyclobenzaprine HCl * ([id number] MG) 10 MG TABLET Discontinued 10 MG PO THREE TIMES DAILY NEEDED as needed for Muscle Spasm March 26, 2015 3:48pm December 04, 2015 4:06pm Comment on above: Take by mouth three times daily as needed for muscle spasm. enteric contrast (will be provided with radiology test) (6 sources) Start: 08-28-2021 End: 08-28-2021 enteric contrast (will be provided with radiology test) Indications: Malignant neoplasm of right kidney, except renal pelvis (HCC) For CT CHESTABD/PEL W IVCON Routine order Administer, As Directed One Time Only, via Oral, Rectal, both Oral and Rectal, Enteric Tube, Stoma or Indwelling Catheter, Enteric Contrast as designated per enteric contrast guidelines 1 Each 0 08/28/2021 08/28/2021 Active Start: 08-21-2021 End: 08-21-2021 enteric contrast (will be pr ovided with radiology test) Indications: Malignant neoplasm of right kidney, except renal pelvis (HCC) For CT CHESTABD/PEL W IVCON Routine order Administer, As Directed One Time Only, via Oral, Rectal, both Oral and Rectal, Enteric Tube, Stoma or Indwelling Catheter, Enteric Contrast as designated per enteric contrast guidelines 1 Each 0 08/21/2021 08/21/2021 Active Start: 07-28-2021 End: 07-29-2021 enteric contrast (will be pr ovided with radiology test) Indications: Malignant neoplasm of right kidney, except renal pelvis (HCC) For CT CHESTABD/PEL W IVCON Routine order Administer, As Directed One Time Only, via Oral, Rectal, both Oral and Rectal, Enteric Tube, Stoma or Indwelling Catheter, Enteric Contrast as designated per enteric contrast guidelines 1 Each 0 07/28/2021 07/29/2021 Active Start: 07-14-2021 End: 07-15-2021 enteric contrast (will be pr ovided with radiology test) Indications: Malignant neoplasm of right kidney, except renal pelvis (HCC) For CT CHESTABD/PEL W IVCON Routine order Administer, As Directed One Time Only, via Oral, Rectal, both Oral and Rectal, Enteric Tube, Stoma or Indwelling Catheter, Enteric Contrast as designated per enteric contrast guidelines 1 Each 0 07/14/2021 07/15/2021 Active Comment on above: For CT CHESTABD/PEL W IVCON Routine order Administer, As Directed One Time Only, via Oral, Rectal, both Oral and Rectal, Enteric Tube, Stoma or Indwelling Catheter, Enteric Contrast as designated per enteric contrast guidelines Fluticasone-Umeclidin -Vilanter (20 sources) Anticholinergic, Corticosteroid, beta2-Adrenergic Agonist Start: 06-29-2022 Pffunopuztb-Oapgpadnf-V ilanter (Trelegy Ellipta) 100-62.5-25 mcg blister with device Active 1 NMA INHALATION DAILY June 29, 2022 11:13am Start: 06-29-2022 Fluticasone-Um eclidin-Vilanter (Trelegy Ellipta) 100-62.5-25 mcg blister with device Active 1 NMA INHALATION DAILY June 29, 2022 11:13am Start: 06-29-2022 Fluticasone-Um eclidin-Vilanter (Trelegy Ellipta) 100-62.5-25 mcg blister with device Active 1 INH INHALATION DAILY June 29, 2022 10:13am Start: 06-29-2022 Fluticasone-Um eclidin-Vilanter (Trelegy Ellipta) 100-62.5-25 mcg blister with device Active 1 INH INHALATION DAILY June 29, 2022 11:13am Start: 05-22-2022 End: 06-29-2022 Lxbwiuugsrx-Hctbfbsil-Yxgevt er (Trelegy Ellipta) 100-62.5-25 mcg blister with device Discontinued 1 NMA INHALATION DAILY May 22, 2022 12:00am June 29, 2022 11:14am Start: 05-22-2022 End: 06-29-2022 Tyykhylsowk-Cwvtmotvs-Yyxojx er (Trelegy Ellipta) 100-62.5-25 mcg blister with device Discontinued 1 INH INHALATION DAILY May 21, 2022 11:00pm June 29, 2022 10:14am Start: 05-22-2022 End: 06-29-2022 Piafkgfagdo-Iwksdfegn-Txzgrf er (Trelegy Ellipta) 100-62.5-25 mcg blister with device Discontinued 1 INH INHALATION DAILY May 22, 2022 12:00am June 29, 2022 11:14am Start: 05-22-2022 Fluticasone-Um eclidin-Vilanter (Trelegy Ellipta) 100-62.5-25 mcg blister with device Active 1 INH INHALATION DAILY May 22, 2022 12:00am Start: 12-29-2021 Trelegy Ellipt a 100-62.5-25 MCG/ACT Inhalation Aerosol Powder Breath Activated Quantity: 60 Refills: 0 Ordered: 29-Dec-2021 DO Start : 29-Dec-2021 Active Start: 10-31-2021 TRELEGY ELLIPT A 100-62.5-25 mcg inhalation powder 10/31/2021 Active ibuprofen 800 mg oral tablet (20 sources) Nonsteroidal Anti-inflammatory Drug Start: 03-14-2017 take 1 tablet by mouth every eight hours as needed for pain ibuprofen (MOTRIN) 800 MG tablet Take 1 Tablet by mouth every 8 hours as needed for Pain. 30 Tablet 3 03/14/2017 Active Start: 12-04-2015 End: 07-15-2021 ibuprofen (MOTRIN) 800 mg ta blet take 1 tablet by kellie th three times daily as needed ibuprofen 800 mg oral tablet ; 1 tab(s) orally 3 times a day, As Needed Quantity: 0 Refills: 0 Ordered: 27-Jan-2022 Liliam Morejon Generic Substitution Allowed methocarbamol 500 mg oral tablet (1 source) Muscle Relaxant Start: 06-04-2019 take 500 mg by mouth four times daily Methocarbamol Active 500 MG PO 4 TIMES DAILY June 04, 2019 5:47pm MULTIVITAMIN TAB (20 sources) Start: 09-03-2021 End: 10-03-2021 take 1 tablet by mouth once daily MULTIVITAMIN TAB Take 1 tablet by mouth once daily. 0 09/03/2021 10/03/2021 Suspended Start: 09-03-2021 End: 10-03-2021 take 1 tablet by mouth once daily MULTIVITAMIN TAB Take 1 tablet by mouth once daily. 0 09/03/2021 10/03/2021 Active Start: 05-10-2006 MULTIVITAMIN T AB Take one(1) tablet daily. 0 05/10/2006 Suspended Start: 05-10-2006 MULTIVITAMIN T AB Take one(1) tablet daily. 0 05/10/2006 Active Comment on above: Take one(1) tablet d aily. Take 1 tablet by kellie th once daily. nicotine 2 mg chewing gum (20 sources) Cholinergic Nicotinic Agonist Start: 07-15-2021 End: 08-14-2021 take 2 mg by mouth every two hours as needed nicotine polacrilex (NICORETTE) 2 mg gum Take 1 Each by mouth every 2 hours as needed. 100 Each 1 07/15/2021 08/14/2021 Active Start: 07-15-2021 apply 1 dose transde rmal route every twenty-four hours nicotine (NICODERM) 14 mg/24 hr Apply 1 Patch as directed every 24 hours. 28 Patch 1 07/15/2021 Suspended Comment on above: Take 1 Each by mouth every 2 hours as needed. Apply 1 Patch as dir ected every 24 hours. perflutren lipid microspheres 1.3 mL in NaCl (PF) 0.9% 10 mL injection (DEFINITY) (18 sources) Start: 02-16-2022 End: 05-18-2023 perflutren lipid microspheres 1.3 mL in NaCl (PF) 0.9% 10 mL injection (DEFINITY) Start: 07-11-2021 End: 07-15-2021 perflutren lipid microsphere s 1.3 mL in NaCl (PF) 0.9% 10 mL injection (DEFINITY) Start: 07-11-2021 End: 10-10-2022 perflutren lipid microsphere s 1.3 mL in NaCl (PF) 0.9% 10 mL injection (DEFINITY) polyethylene glycol 3350 46865 mg powder for oral solution (16 sources) Osmotic Laxative Start: 02-06-2022 End: 02-12-2022 MiraLax oral powder for reconstitution ; 17 gram(s) orally once a day, As Needed for constipation Quantity: 119 Refills: 0 Ordered: 06-Feb-2022 Clau Diallo Start: 06-Feb-2022 End: 12-Feb-2022 Generic Substitution Allowed Comments: Dilute this medication with liquid before administration.It is very important that you take or use this exactly as directed. Do not skip doses or discontinue unless directed by your doctor. Start: 02-06-2022 End: 04-09-2022 polyethylene glycol 3350 (RI RALAX, GLYCOLAX) 17 gram/dose powder Comment on above: Dilute this medicati on with liquid before administration.It is very important that you take or use this exactly as directed. Do not skip doses or discontinue unless directed by your doctor. potassium chloride 20 meq extended release oral tablet (20 sources) Start: 3 End: 3 take 1 tablet by mouth once daily Potassium Chloride 20 mEq tablet extended release Active 20 meq PO DAILY 30 0 June 29, 2022 11:13am Start: 10-30-2019 End: 06-23-2021 take 1 tablet by mouth once daily potassium chloride (K-TAB) 10 mEq tablet Indications: Hypokalemia Take 1 tablet by mouth once daily. 90 tablet 3 10/30/2019 06/23/2021 Discontinued (Course of therapy completed) End: 07-22-2021 potassium chloride (KLOR-CON ) 20 mEq packet Potassium Chloride* ([id number]) 20 MEQ PACKET Active 20 MEQ PO 0 07/22/2021 Discontinued (Clinical Decision) Potassium Chlori de* ([id number]) 20 MEQ PACKET Active 20 MEQ PO Comment on above: Take 1 tablet by kellie th once daily. Potassium Chloride* ([id number]) 20 MEQ PACKET Active 20 MEQ PO Semaglutide (4 sources) Start: 06-20-2024 Semaglutide (Ozempic) 0.25 mg or 0.5 mg (2 mg/3 mL) pen injector Active 0.25 mg SC EVERY WEEK June 20, 2024 12:00am 125 ml sodium chloride 9 mg/ml prefilled syringe (18 sources) Start: 07-11-2021 End: 05-18-2023 sodium chloride 0.9 % (flush) 10 mL (BD POSIFLUSH) torsemide 20 mg oral tablet (20 sources) Loop Diuretic Start: 02-16-2022 Torsemide 20 MG Oral Tablet Quantity: 60 Refills: 0 Ordered: 16-Feb-2022 DO Start : 16-Feb-2022 Active Start: 12-07-2021 End: 04-16-2022 take 1 tablet by mouth once daily Torsemide 40 mg Tablet Discontinued 40 mg PO DAILY December 07, 2021 12:00am April 16, 2022 2:41pm Start: 12-07-2021 End: 04-16-2022 take 40 mg by mouth once daily Torsemide Discontinued 40 MG PO DAILY December 07, 2021 12:00am April 16, 2022 2:41pm Start: 12-07-2021 End: 04-16-2022 take 40 mg by mouth once daily Torsemide Discontinued 40 MG PO DAILY December 06, 2021 11:00pm April 16, 2022 1:41pm Start: 12-07-2021 take 40 mg by mouth once daily Torsemide Active 40 MG PO DAILY December 06, 2021 11:00pm Start: 12-07-2021 take 40 mg by mouth once daily Torsemide Active 40 MG PO DAILY December 07, 2021 12:00am Start: 09-27-2021 End: 09-29-2021 take 1 tablet by mouth once daily torsemide (SOAANZ) 40 mg tablet Take 1 tablet by mouth once daily. 30 tablet 2 09/27/2021 09/29/2021 Discontinued (Adjust Sig - Block E-Cancel) Start: 09-26-2021 End: 05-17-2022 take 2 tablets by mouth once daily torsemide (DEMADEX) 20 mg tablet Take 2 tablets by mouth once daily. TAKE 2 TABLETS BY MOUTH TO EQUAL 40 MG ONCE PER DAY 180 tablet 1 02/16/2022 Active Comment on above: TAKE 2 TABLETS BY MO [facility] TO EQUAL 40 MG ONCE PER DAY Take 1 tablet by [facility] once daily. Take 2 tablets by mo [facility] once daily. TAKE 2 TABLETS BY MOUTH TO EQUAL 40 MG ONCE PER DAY triamcinolone acetonide 1 mg/ml topical cream (3 sources) Corticosteroid Start: 12-14-2011 triamcinolone 0.1 % cream Apply topically 2 times daily apply thin film to affected skin 2 times daily do not apply to face/genitals 15 g 1 12/14/2011 Active Completed/Discontinued Medications Medication Drug Class(es) Dates Sig (Normalized) Sig (Original) Albuterol 90 mcg/actuation Aerosol (6 sources) Start: 12-07-2021 End: 06-29-2022 take 90 ug by inhalation every four hours as needed Albuterol 90 mcg/actuation Aerosol Discontinued 90 ug INHALATION EVERY 4 HOURS NEEDED as needed for breathing December 07, 2021 12:00am June 29, 2022 11:08am atenolol 100 mg oral tablet (20 sources) beta-Adrenergic Bettye Start: 10-30-2019 End: 09-03-2021 take 1 tablet by mouth once daily atenolol (TENORMIN) 100 mg tablet Indications: Essential hypertension Take 1 tablet by mouth once daily. 90 tablet 3 10/30/2019 07/22/2021 Discontinued (Clinical Decision) End: 06-19-2021 take 1 tablet by mouth once daily Atenolol * ([id number] MG) 25 MG TABLET Discontinued 25 MG PO EVERY DAY June 19, 2021 4:07pm Comment on above: Take 1 tablet by kellie th once daily. Take 100 mg by mouth once daily. axitinib 5 mg oral tablet (13 sources) Kinase Inhibitor Start: 03-25-2022 End: 04-09-2022 take 1 tablet by mouth every twelve hours axitinib (INLYTA) 5 mg tablet Indications: Renal cell carcinoma of right kidney (HCC) Take 1 tablet (5 mg) by mouth every 12 hours. 60 tablet 11 03/25/2022 04/09/2022 Discontinued (Changing Therapy/Dosage Form) Start: 03-25-2022 take 1 tablet by kellie th every twelve hours axitinib (INLYTA) 5 mg tablet Indications: Renal cell carcinoma of right kidney (HCC) Take 1 tablet (5 mg) by mouth every 12 hours. 60 tablet 11 03/25/2022 Active Start: 03-25-2022 take 1 tablet by kellie th every twelve hours axitinib (INLYTA) 5 mg tablet Indications: Renal cell carcinoma of right kidney (HCC) Take 1 tablet (5 mg) by mouth every 12 hours. 60 tablet 11 03/25/2022 Active Start: 03-25-2022 take 1 tablet by kellie th every twelve hours axitinib (INLYTA) 5 mg tablet Indications: Renal cell carcinoma of right kidney (HCC) Take 1 tablet (5 mg) by mouth every 12 hours. 60 tablet 11 03/25/2022 Active Start: 03-25-2022 End: 03-16-2022 take 1 tablet by mouth every twelve hours axitinib (INLYTA) 5 mg tablet Take 1 tablet (5 mg) by mouth every 12 hours. 60 tablet 03/25/2022 03/16/2022 Discontinued Start: 03-25-2022 take 1 tablet by kellie th every twelve hours axitinib (INLYTA) 5 mg tablet Indications: Renal cell carcinoma of right kidney (HCC) Take 1 tablet (5 mg) by mouth every 12 hours. 60 tablet 03/25/2022 Active Start: 03-25-2022 take 1 tablet by kellie th every twelve hours axitinib (INLYTA) 5 mg tablet Take 1 tablet (5 mg) by mouth every 12 hours. 60 tablet 03/25/2022 Active Start: 03-25-2022 take 1 tablet by kellie th every twelve hours axitinib (INLYTA) 5 mg tablet Take 1 tablet (5 mg) by mouth every 12 hours. 60 tablet 03/25/2022 Active Start: 03-25-2022 take 1 tablet by kellie th every twelve hours axitinib (INLYTA) 5 mg tablet Take 1 tablet (5 mg) by mouth every 12 hours. 60 tablet 03/25/2022 Active Comment on above: Take 1 tablet (5 mg) by mouth every 12 hours. bumetanide 2 mg oral tablet (20 sources) Loop Diuretic Start: 3 End: 3 take 1 tablet by mouth twice daily Bumetanide 2 mg tablet Discontinued 2 mg PO TWICE A DAY 180 3 September 28, 2022 3:39pm September 29, 2022 2:10pm cefdinir 300 mg oral capsule (5 sources) Cephalosporin Antibacterial Start: 2 Cefdinir 300 MG Oral Capsule Quantity: 14 Refills: 0 Ordered: 30-Jan-2022 DO Start : 29-Jan-2022 Active Start: 01-29-2022 End: 02-17-2022 cefdinir (OMNICEF) 300 mg ca psule clindamycin 150 mg oral capsule (4 sources) Lincosamide Antibacterial Start: 10-28-2021 Clindamycin HCl - 15 0 MG Oral Capsule Quantity: 21 Refills: 0 Ordered: 28-Oct-2021 DO Start : 28-Oct-2021 Active Start: 10-28-2021 End: 02-17-2022 clindamycin (CLEOCIN) 150 mg capsule Digoxin (1 source) Cardiac Glycoside End: 06-19-2021 0.8 ml enoxaparin sodium 150 mg/ml prefilled syringe (20 sources) Low Molecular Weight Heparin Start: 09-04-2021 End: 2022 inject 120 mg by subcutaneous injection every twelve hours enoxaparin (LOVENOX) 120 mg/0.8 mL injection Inject 0.8 mL subcutaneously q 12 HR. 8 Syringe 1 09/26/2021 Active Comment on above: Inject 0.8 mL subcutaneously every 12 ho urs. Inject 0.8 mL subcut aneously q 12 HR. etodolac 400 mg oral tablet (17 sources) Nonsteroidal Anti-inflammatory Drug Start: 10-10-2018 End: 07-15-2021 take 1 tablet by mouth once daily as needed for pain etodolac (LODINE) 400 mg tablet Indications: Chronic bilateral low back pain without sciatica Take 1 tablet by mouth once daily as needed (Lower back pain). 90 tablet 1 10/10/2018 07/15/2021 Discontinued (Course of therapy completed) Comment on above: Take 1 tablet by mouth once daily as nee ded (Lower back pain). ferrous sulfate 325 mg oral tablet (20 sources) Start: 08-12-2021 End: 06-29-2022 take 1 tablet by mouth twice daily Ferrous Sulfate 325 mg (65 mg iron) Tablet Discontinued 325 mg PO TWICE A DAY December 07, 2021 12:00am June 29, 2022 11:14am Start: 07-15-2021 End: 10-13-2021 take 1 tablet by mouth twice daily ferrous sulfate 325 mg (65 mg iron) tablet TAKE 1 TABLET BY MOUTH TWICE A DAY 60 tablet 2 08/12/2021 Active Comment on above: Take 1 tablet by kellie th twice daily. TAKE 1 TABLET BY KELLIE TH TWICE A DAY furosemide 40 mg oral tablet (20 sources) Loop Diuretic Start: 09-29-2022 End: 09-29-2022 take 1 tablet by mouth once daily Furosemide (Lasix) 40 mg tablet Discontinued 40 mg PO DAILY 90 3 September 29, 2022 2:06pm September 29, 2022 2:10pm Start: 06-27-2022 End: 06-29-2022 take 1 tablet by mouth once daily Furosemide (Lasix) 40 mg Tablet Discontinued 40 mg PO DAILY June 27, 2022 12:00am June 29, 2022 11:09am Start: 05-22-2022 End: 05-25-2022 Furosemide 40 mg tablet Disc ontinued 40 mg PO May 22, 2022 12:00am May 25, 2022 9:31am Start: 01-29-2022 End: 02-16-2022 take 1 tablet by mouth once daily furosemide (LASIX) 40 mg tablet Take 1 tablet by mouth once daily. 0 01/29/2022 Active Start: 09-04-2021 take 1 tablet by kellie th twice daily furosemide (LASIX) 40 mg tablet Take 1 tablet by mouth twice daily. 60 tablet 3 09/04/2021 Suspended Start: 08-17-2021 End: 08-26-2021 take 1 tablet by mouth once daily furosemide (LASIX) 20 mg tablet Indications: Pedal edema Take 1 tablet by mouth once daily for 7 days. 7 tablet 0 08/19/2021 Suspended Comment on above: Take 1 tablet by kellie th once daily for 7 days. Take 1 tablet by kellie twice daily. Take 1 tablet by kellie th once daily. hydroCHLOROthiazide 25 mg oral tablet (1 source) Thiazide Diuretic End: 2015 take 1 tablet by mouth once daily Hydrochlorothiazide * ([id number] MG) 25 MG TABLET Discontinued 25 MG PO EVERY DAY March 26, 2015 3:58pm hydroCHLOROthiazide 25 mg / triamterene 37.5 mg oral capsule (20 sources) Potassium-spari ng Diuretic, Thiazide Diuretic Start: 2021 End: 2021 take 1 capsule by mouth once daily triamterene-hydroCHLOROth iazide (DYAZIDE) 37.5-25 mg per capsule Take 1 capsule by mouth once daily. 0 08/04/2021 08/19/2021 Discontinued (Clinical Decision) Start: 09-27-2019 End: 07-22-2021 take 1 capsule by mouth once daily triamterene-hydrochlorothiazide (DYAZIDE ) 37.5-25 mg per capsule Take 1 capsule by mouth once daily. 90 capsule 3 09/27/2019 07/22/2021 Discontinued (Clinical Decision) Triamterene/Hydr ochlorothiazid (TRIAMTERENE-HC1 EACH) 1 EACH CAPSULE Active 1 EACH PO End: 06-19-2021 Triamterene/Hydrochlorothiaz jaleesa * (MAXZIDE 37.5 M1 EACH) 1 TAB Discontinued 1 EACH PO June 19, 2021 4:08pm Comment on above: Take 1 capsule by [facility] once daily. iv contrast (will be provided with radiology test) (20 sources) Start: 03-11-2022 End: 03-12-2022 iv contrast (will be provided with radiology test) CT Chest ABD/PEL-Inject, intravenously, once for 1 dose.No IV access, insert saline lock prior to the beginning of sedation, infusion, injection of imaging exam. Discontinue saline lock post exam. If Pt. has a central line or IVAD, may access for administration according to line specific nursing protocol. Once exam is complete flush line and de-access according to line specific nursing protocol in the CT contrast administration guidelines link. 1 Each 0 03/11/2022 03/12/2022 Start: 09-02-2021 End: 09-03-2021 iv contrast (will be provide d with radiology test) CT Chest PE -Inject, intravenously, once for 1 dose.No IV access, insert saline lock prior to the beginning of sedation, infusion, injection of imaging exam. Discontinue saline lock post exam. If Pt. has a central line or IVAD, may access for administration according to line specific nursing protocol. Once exam is complete flush line and de-access according to line specific nursing protocol in the CT contrast administration guidelines link. 1 Each 0 09/02/2021 09/03/2021 Suspended Start: 09-02-2021 End: 09-03-2021 iv contrast (will be provide d with radiology test) CT Chest PE -Inject, intravenously, once for 1 dose.No IV access, insert saline lock prior to the beginning of sedation, infusion, injection of imaging exam. Discontinue saline lock post exam. If Pt. has a central line or IVAD, may access for administration according to line specific nursing protocol. Once exam is complete flush line and de-access according to line specific nursing protocol in the CT contrast administration guidelines link. 1 Each 0 09/02/2021 09/03/2021 Active Start: 08-28-2021 End: 08-28-2021 iv contrast (will be provide d with radiology test) Indications: Malignant neoplasm of right kidney, except renal pelvis (HCC) CT Chest ABD/PEL-Inject, intravenously, once for 1 dose.No IV access, insert saline lock prior to the beginning of sedation, infusion, injection of imaging exam. Discontinue saline lock post exam. If Pt. has a central line or IVAD, may access for administration according to line specific nursing protocol. Once exam is complete flush line and de-access according to line specific nursing protocol in the CT contrast administration guidelines link. 1 Each 0 08/28/2021 08/28/2021 Active Start: 08-21-2021 End: 08-21-2021 iv contrast (will be provide d with radiology test) Indications: Malignant neoplasm of right kidney, except renal pelvis (HCC) CT Chest ABD/PEL-Inject, intravenously, once for 1 dose.No IV access, insert saline lock prior to the beginning of sedation, infusion, injection of imaging exam. Discontinue saline lock post exam. If Pt. has a central line or IVAD, may access for administration according to line specific nursing protocol. Once exam is complete flush line and de-access according to line specific nursing protocol in the CT contrast administration guidelines link. 1 Each 0 08/21/2021 08/21/2021 Active Start: 08-08-2021 End: 08-09-2021 iv contrast (will be provide d with radiology test) MRI Kidney Inject, intravenously, once for 1 dose. No IV access, insert saline lock prior to the beginning of sedation, infusion, injection of imaging exam. Discontinue saline lock post exam. If Pt. has a central line or IVAD, may access for administration according to line specific nursing protocol. Once exam is complete flush line and de-access according to line specific nursing protocol in the MR contrast administration guidelines link. 1 Each 0 08/08/2021 08/09/2021 Active Start: 07-28-2021 End: 07-29-2021 iv contrast (will be provide d with radiology test) Indications: Malignant neoplasm of right kidney, except renal pelvis (HCC) CT Chest ABD/PEL-Inject, intravenously, once for 1 dose.No IV access, insert saline lock prior to the beginning of sedation, infusion, injection of imaging exam. Discontinue saline lock post exam. If Pt. has a central line or IVAD, may access for administration according to line specific nursing protocol. Once exam is complete flush line and de-access according to line specific nursing protocol in the CT contrast administration guidelines link. 1 Each 0 07/28/2021 07/29/2021 Active Start: 07-14-2021 End: 07-15-2021 iv contrast (will be provide d with radiology test) Indications: Malignant neoplasm of right kidney, except renal pelvis (HCC) CT Chest ABD/PEL-Inject, intravenously, once for 1 dose.No IV access, insert saline lock prior to the beginning of sedation, infusion, injection of imaging exam. Discontinue saline lock post exam. If Pt. has a central line or IVAD, may access for administration according to line specific nursing protocol. Once exam is complete flush line and de-access according to line specific nursing protocol in the CT contrast administration guidelines link. 1 Each 0 07/14/2021 07/15/2021 Active Start: 07-14-2021 End: 07-15-2021 inject 1 dose intravenously once iv contrast (will be provided with radiology test) Indications: Malignant neoplasm of kidney excluding renal pelvis, unspecified laterality (HCC) MRI Brain Inject,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 [Secondary malignant neoplasm of bone and bone marrow] Onset: 2 05-27-2022 Chronic Secondary malignancies (20 sources) Secondary malignant neoplasm of bone; Translations: [Secondary malignant neoplasm of bone] 05-27-2022 Chronic Comment on above: Clinically stable Sprains and strains (20 sources) Thoracic back sprain; Translations: [Sprain of thoracic] 03-26-2015 Episodic Substance-related disorders (20 sources) Tobacco user; Translations: [Nicotine dependence, unspecified, uncomplicated] Onset: 9 03-12-2008 Chronic Syncope (1 source) Syncope; Translations: [Syncope and collapse] 06-19-2021 Episodic Unclassified (1 source) OPENED IN ERROR Unclassified (2 sources) RIGHT LAPAROSCOPIC NEPHRECTOMY (53362) 02-03-2022 Comment on above: RIGHT LAPAROSCOPIC N EPHRECTOMY (95484) Unclassified (2 sources) Body mass index (BMI) of 35.0 to 35.9 in adult 02-07-2022 Unclassified (1 source) Status post nephrectomy 02-08-2022 Unclassified (1 source) Chronic atrial fibrillation, unspecified; Translations: [Chronic atrial fibrillation, unspecified] Onset: 2 Unclassified (1 source) Cancer Pain Onset: 2 Past or Other Problems Problem Classification Problem Date Documented Da te Episodic/Chronic Abdominal pain (1 source) Left lower quadrant pain; Translations: [Left lower quadrant abdominal pain] Onset: 06-12-2022 Episodic Diabetes mellitus without complication (20 sources) Prediabetes; Translations: [Prediabetes] Onset: 10-27-2021 Episodic Other gastrointestinal disorders (1 source) Flatulence; Translations: [Flatulence] Onset: 02-02-2024 Episodic Other non-traumatic joint disorders (20 sources) Shoulder joint pain; Translations: [Pain in unspecified shoulder] Onset: 06-04-2006 06-04-2006 Episodic Other skin disorders (2 sources) Localized swelling, mass and lump, trunk; Translations: [Mass of chest wall] Onset: 06-30-2021 Episodic Residual codes; unclassified (20 sources) Disturbance in sleep behavior; Translations: [Sleep disorder, unspecified] Onset: 06-30-2004 07-25-2018 Episodic Residual codes; unclassified (20 sources) History of clinical finding in subject; Translations: [Personal history of other specified conditions] Onset: 11-15-2019 11-15-2019 Episodic Residual codes; unclassified (3 sources) Personal history of other specified conditions; Translations: [Personal history of other specified diseases] Onset: 11-15-2019 11-15-2019 Episodic Residual codes; unclassified (1 source) Localized edema; Translations: [Pedal edema] Onset: 09-02-2021 Episodic Results Test Name Value Interpretation Reference Range Facility Absolute lymphocyte countOrd ered By: Gini Couch on 08-14-2024 Lymphocytes Auto (Unsp spec) [#/Vol] 1.02 10*3/uL 0.83-4.51 [facility] Absolute neutrophil countOrd ered By: Gini Couch on 08-14-2024 Neutrophils (Bld) [#/Vol] 3.6 10*3/uL 2.0-7.7 [facility] Anion gap in Serum or Plasma Ordered By: Gini Couch on 08-14-2024 Anion gap [Moles/Vol] 10 mmol/L 5-15 [facility] Automated lymphocyte count a s percentage of total leukocytesOrdered By: Gini Couch on 08-14-2024 Lymphocytes/100 WBC Auto (Unsp spec) 18.9 % Low 19-41 [facility] BUN/creatinine ratioOrdered By: Gini Couch on 08-14-2024 Urea nitrogen/Creatinine [Mass ratio] 9.5 mg/mg Low 10-20 [facility] Basic Metabolic Profile (BMP )on 08-14-2024 BUN/CRE 9.5 RATIO Low 10-20 [facility] Comment on above: Performed By: #### L 501.5200, L100.0100, L500.2500, L501.9520 ####[facility] [address] [place], [address] Calcium [Mass/Vol] 9.5 mg/dL Normal 7.6-11.0 [facility] Comment on above: Performed By: #### L 501.5200, L100.0100, L500.2500, L501.9520 ####[facility] [address] [place], [address] Chloride [Moles/Vol] 102 mmol/L Normal 98-108 [facility] Comment on above: Performed By: #### L 501.5200, L100.0100, L500.2500, L501.9520 ####[facility] [address] [place], [address] CO2 [Moles/Vol] 26.2 mmol/L Normal 21.0-32.0 [facility] Comment on above: Performed By: #### L 501.5200, L100.0100, L500.2500, L501.9520 ####[facility] [address] [place], [address] Creatinine [Mass/Vol] 2.22 mg/dL High 0.70-1.20 [facility] Comment on above: Performed By: #### L 501.5200, L100.0100, L500.2500, L501.9520 ####[facility] [address] [place], [address] GAP 10 Normal 5-15 [facility] Comment on above: Performed By: #### L 501.5200, L100.0100, L500.2500, L501.9520 ####[facility] [address] [place], [address] GFR/1.73 sq M.predicted among non-blacks MDRD (S/P/Bld) [Vol rate/Area] 33 mL/min/{1.73_m2} Low >60 [facility] Comment on above: Result Comment: mL/m in/1.73m2 CKD-EPI Creatinine Equation (2020) Performed By: #### L 501.5200, L100.0100, L500.2500, L501.9520 ####[facility] [address] [place], [address] Glucose [Mass/Vol] 101 mg/dL High 70-99 [facility] Comment on above: Performed By: #### L 501.5200, L100.0100, L500.2500, L501.9520 ####[facility] [address] [place], [address] Potassium [Moles/Vol] 4.7 mmol/L Normal 3.3-5.1 [facility] Comment on above: Performed By: #### L 501.5200, L100.0100, L500.2500, L501.9520 ####[facility] [address] [place], [address] Sodium [Moles/Vol] 138 mmol/L Normal 133-145 [facility] Comment on above: Performed By: #### L 501.5200, L100.0100, L500.2500, L501.9520 ####[facility] [address] [place], [address] Urea nitrogen [Mass/Vol] 21 mg/dL High 4-19 [facility] Comment on above: Performed By: #### L 501.5200, L100.0100, L500.2500, L501.9520 ####[facility] [address] [place], [address] Basophil percentageOrdered B y: Gini Couch on 08-14-2024 Basophils/100 WBC (Bld) 0.4 % 0-1 [facility] CBC W/Diff, Automatedon 06-0 -2024 Absolute Lymph 1.02 X10 3/uL Normal 0.83-4.51 [facility] Comment on above: Performed By: #### L 501.5200, L100.0100, L500.2500, L501.9520 ####[facility] [address] [place], [address] Absolute Neut 3.6 X10 3/uL Normal 2.0-7.7 [facility] Comment on above: Performed By: #### L 501.5200, L100.0100, L500.2500, L501.9520 ####[facility] [address] [place], [address] Basophils/100 WBC (Bld) 0.4 % Normal 0-1 [facility] Comment on above: Performed By: #### L 501.5200, L100.0100, L500.2500, L501.9520 ####[facility] [address] [place], [address] Eosinophils/100 WBC (Bld) 2.2 % Normal 0-5 [facility] Comment on above: Performed By: #### L 501.5200, L100.0100, L500.2500, L501.9520 ####[facility] [address] [place], [address] Erythrocyte distribution width (RBC) [Ratio] 16.6 % High 11.6-14.6 [facility] Comment on above: Performed By: #### L 501.5200, L100.0100, L500.2500, L501.9520 ####[facility] [address] [place], [address] Hematocrit (Bld) [Volume fraction] 41.7 % Normal 40-54 [facility] Comment on above: Performed By: #### L 501.5200, L100.0100, L500.2500, L501.9520 ####[facility] [address] [place], [address] Hemoglobin (Bld) [Mass/Vol] 13.9 g/dL Normal 13.0-16.5 [facility] Comment on above: Performed By: #### L 501.5200, L100.0100, L500.2500, L501.9520 ####[facility] [address] [place], [address] IG% 0.200 Normal 0.0-0.9 [facility] Comment on above: Result Comment: IG% - Immature Granulocytes (promyelocytes, myelocytes and metamyelocytes) > 1% indicates that a LEFT SHIFT is Present. Performed By: #### L 501.5200, L100.0100, L500.2500, L501.9520 ####[facility] [address] [place], [address] Lymphocytes/100 WBC (Bld) 18.9 % Low 19-41 [facility] Comment on above: Performed By: #### L 501.5200, L100.0100, L500.2500, L501.9520 ####[facility] [address] [place], [address] MCH (RBC) [Entitic mass] 32.5 pg High 27.0-32.0 [facility] Comment on above: Performed By: #### L 501.5200, L100.0100, L500.2500, L501.9520 ####[facility] [address] [place], [address] MCHC (RBC) [Mass/Vol] 33.3 g/dL Normal 32-36 [facility] Comment on above: Performed By: #### L 501.5200, L100.0100, L500.2500, L501.9520 ####[facility] [address] [place], [address] MCV (RBC) [Entitic vol] 97.4 fL High 80-94 [facility] Comment on above: Performed By: #### L 501.5200, L100.0100, L500.2500, L501.9520 ####[facility] [address] [place], [address] Monocytes/100 WBC (Bld) 11.3 % High 0-10 [facility] Comment on above: Performed By: #### L 501.5200, L100.0100, L500.2500, L501.9520 ####[facility] [address] [place], [address] Neutrophils/100 WBC (Bld) 67.0 % Normal 47-70 [facility] Comment on above: Performed By: #### L 501.5200, L100.0100, L500.2500, L501.9520 ####[facility] [address] [place], [address] Nucleated RBC (Bld) [#/Vol] 0 10*3/uL Normal 0-5 [facility] Comment on above: Performed By: #### L 501.5200, L100.0100, L500.2500, L501.9520 ####[facility] [address] [place], [address] Platelet mean volume (Bld) [Entitic vol] 10.4 fL Normal 6.2-12.0 [facility] Comment on above: Performed By: #### L 501.5200, L100.0100, L500.2500, L501.9520 ####[facility] [address] [place], [address] Platelets (Bld) [#/Vol] 209 10*3/uL Normal 150-450 [facility] Comment on above: Performed By: #### L 501.5200, L100.0100, L500.2500, L501.9520 ####[facility] [address] [place], [address] RBC (Bld) [#/Vol] 4.28 10*6/uL Low 4.6-6.2 [facility] Comment on above: Performed By: #### L 501.5200, L100.0100, L500.2500, L501.9520 ####[facility] [address] [place], [address] RDW SD 59.1 fl High 35.1-43.9 [facility] Comment on above: Performed By: #### L 501.5200, L100.0100, L500.2500, L501.9520 ####[facility] [address] [place], [address] WBC (Bld) [#/Vol] 5.4 10*3/uL Normal 4.4-11.0 [facility] Comment on above: Performed By: #### L 501.5200, L100.0100, L500.2500, L501.9520 ####[facility] [address] [place], [address] Carbon dioxide, total [Moles /volume] in Central venous bloodOrdered By: Gini Couch on 08-14-2024 CO2 [Moles/Vol] 26.2 mmol/L 21.0-32.0 [facility] Cardiology Visit Reporton Cardiology Visit Report [facility] [address] [place] [address] OFFICE VISIT Date of Service: 08/14/24 MR#: [id number] Acct: [id number] Name: YEFRI AYNEZ Rep #: [id number] : 1965 Provider: JARVIS campos Age/Sex: 59/M Location: [facility] [place] Status: Signed HPI HPI History of Present Illness Details: Yefri Yanez is a 59-year-old man who presents to the office today for a cardiovascular follow-up visit. He was last seen in our office in 2022. He has a bit of a complicated medical history with 2 recent admissions to the hospital in April and May 2022. 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 He had presented to the hospital with a 2-week history of progressive shortness of breath. On presentation to the hospital he was noted to have an elevated creatinine of 1.9 and an elevated natruretic peptide level. His troponin was mildly elevated but was otherwise flat. He had an echocardiogram performed which demonstrated moderate concentric left ventricular hypertrophy with an estimated ejection fraction of 40% moderate left atrial enlargement mild aortic regurgitation and moderate mitral regurgitation. He also underwent a stress test which demonstrated no evidence of ischemia. He had previously had an echocardiogram in February 2022 demonstrating an ejection fraction of approximately 42% with moderately severe 3+ mitral regurgitation. In addition he has had 2 transesophageal echocardiograms in July 2021 as well as September 2021. Of note is the fact that he also had undergone a left heart catheterization in July 2021 demonstrating left main coronary artery with 20% stenosis LAD with mild diffuse disease left circumflex artery which is a large-caliber with mild luminal irregularities ramus intermedius with mild luminal irregularities and the right coronary artery which was dominant with no significant stenosis present. The echocardiogram from July 2021 and had demonstrated an ejection fraction of 50% moderate 3+ mitral regurgitation but then the follow-up echocardiogram in September 2021 demonstrated significantly reduction in estimated ejection fraction to 20% and the right ventricle was also severely decreased. It appears that he had a DC cardioversion at the [facility] system in September 2021. He had previously been seeing a cane weigher helper in the [facility] system. During this admission to the hospital in May 2022 his medications were optimized he was diuresed his creatinine actually improved and he was subsequently discharged to find a cane weigher helper. He also had a history of atrial fibrillation which appeared to be chronic and he was on anticoagulation with warfarin with his discharge INR being 2.1. From a cardiac standpoint, the patient is doing well. He does acknowledge chest pain-this is located left chest. This is constant. He denies any palpitations, pressure or heaviness. He does acknowledge SOB with exertion and at rest. He wears a CPAP nightly. He does wear oxygen-3L via NC PRN. He does acknowledge Orthopnea. He denies PND. He does not have bleeding issues; no blood in urine, stool, or nosebleeds. He does acknowledge slight fatigue. He denies any myalgias, or claudication. He does not have edema, or sudden weight gain. He does acknowledge lightheadedness. He denies dizziness, syncopal or near syncopal episodes, and headaches. Intake Vital Signs 06/20/24 13:40 08/14/24 06:47 08/14/24 13:06 Height 5 ft 11 in 5 ft 11 in 5 ft 11 in Weight: 258 lb BMI 35.9 BP 127/76 H Blood Pressure Location Lt brachial Position Sitting Respiration 18 Pulse 84 Pulse Source Monitor Pulse Oximetry (%) 97 Intake Visit Reasons: 6 M FU Engine Wiper Required: No Is patient in pain?: No Allergies lisinopril Allergy (Severe, Verified 08/14/24 13:18) Angioedema guaifenesin (From Mucinex) Allergy (Intermediate, Verified 08/14/24 13:18) Bleeding aspirin (ASA) Allergy (Verified 08/14/24 13:18) Other mushroom (mushrooms) Allergy (Verified 08/14/24 13:18) Hives Penicillins Allergy (Verified 08/14/24 13:18) PT UNSURE OF REACTION shellfish derived Allergy (Verified 08/14/24 13:18) Hives Medications ???Medication ???Instructions ???Recorded ???Confirmed ???Type cyclobenzaprine 10 mg tablet 10 mg PO TID PRN Spasms 12/07/21 0 08/14/24 History albuterol sulfate 2.5 mg/3 mL 2.5 mg (3 mL) inhalation PRN PRN 0 06/29/22 08/14/24 Rx (0.083 %) solution for nebulization Shortness Of Breath #75 mL ferrous sulfate 325 mg (65 mg 325 mg PO BID #30 tabs 06/29/22 Rx iron) tablet fluticasone fur. 100 mcg-umeclid 1 inh inhalation DAILY #28 ea 06/0708/14/24 Rx (more content not included)... Normal [facility] Chloride assayOrdered By: Eduardo Couch on 08-14-2024 Chloride [Moles/Vol] 102 mmol/L 98-108 [facility] Eosinophil percentageOrdered By: Gini Couch on 08-14-2024 Eosinophils/100 WBC (Bld) 2.2 % 0-5 [facility] Erythrocyte distribution wid th ratioOrdered By: Gini Couch on 08-14-2024 Erythrocyte distribution width (RBC) [Ratio] 16.6 % High 11.6-14.6 [facility] Erythrocyte distribution wid th standard deviationOrdered By: Gini Couch on 08-14-2024 Erythrocyte distribution width (RBC) [Ratio] 59.1 fl High 35.1-43.9 [facility] Glomerular filtration rate ( GFR) estimation/1.73 sq m using serum, plasma, or whole bOrdered By: Gini Couch on 08-14-2024 GFR/1.73 sq M.predicted among non-blacks MDRD (S/P/Bld) [Vol rate/Area] 33 mL/min/{1.73_m2} Low >60 [facility] Comment on above: mL/min/1.73m2 CKD-EP I Creatinine Equation (2020) Hematocrit Auto (Bld) [Volum e fraction]Ordered By: Gini Couch on 08-14-2024 Hematocrit (Bld) [Volume fraction] 41.7 % 40-54 [facility] Hemoglobin measurementOrdere d By: Gini Couch on 08-14-2024 Hemoglobin (Bld) [Mass/Vol] 13.9 g/dL 13.0-16.5 [facility] Immature granulocytes/100 WB C Auto (Bld)Ordered By: Gini Couch on 08-14-2024 Immature granulocytes/100 WBC (Bld) 0.200 % 0.0-0.9 [facility] Comment on above: IG% - Immature Granu locytes (promyelocytes, myelocytes and metamyelocytes) > 1% indicates that a LEFT SHIFT is Present. MCV (mean corpuscular volume ) determinationOrdered By: Gini Couch on 08-14-2024 MCV (RBC) [Entitic vol] 97.4 fL High 80-94 [facility] Magnesiumon 08-14-2024 Magnesium [Mass/Vol] 2.3 mg/dL High 1.5-2.2 [facility] Comment on above: Performed By: #### L 501.5200, L100.0100, L500.6511, L501.9514 ####[facility] [address] [place], [address] Magnesium measurement (mass/ volume)Ordered By: Gini Couch on 08-14-2024 Magnesium (Unsp spec) [Mass/Vol] 2.3 mg/dL High 1.5-2.2 [facility] Mean corpuscular hemoglobin (MCH) determinationOrdered By: Gini Couch on 08-14-2024 MCH (RBC) [Entitic mass] 32.5 pg High 27.0-32.0 [facility] Mean corpuscular hemoglobin concentration (MCHC) determinationOrdered By: Gini Couch on 08-14-2024 MCHC (RBC) [Mass/Vol] 33.3 g/dL 32-36 [facility] Mean platelet volume determi nationOrdered By: Gini Couch on 08-14-2024 Platelet mean volume (Bld) [Entitic vol] 10.4 fL 6.2-12.0 [facility] Monocyte percentageOrdered B y: Gini Couch on 08-14-2024 Monocytes/100 WBC (Bld) 11.3 % High 0-10 [facility] Neutrophil percentageOrdered By: Gini Couch on 08-14-2024 Neutrophils/100 WBC (Bld) 67.0 % 47-70 [facility] Nucleated red blood cell per centageOrdered By: Gini Couch on 08-14-2024 Nucleated RBC/100 WBC (Bld) [Ratio] 0 % 0-5 [facility] Platelet countOrdered By: Eduardo Couch on 08-14-2024 Platelets (Bld) [#/Vol] 209 10*3/uL 150-450 [facility] Potassium measurement (mass/ volume)Ordered By: Gini Couch on 08-14-2024 Potassium (Unsp spec) [Mass/Vol] 4.7 mmol/L 3.3-5.1 [facility] RBC Auto (Bld) [#/Vol]Ordere d By: Gini Couch on 08-14-2024 RBC (Bld) [#/Vol] 4.28 10*6/uL Low 4.6-6.2 [facility] Serum creatinine measurement (mass/volume)Ordered By: Gini Couch on 08-14-2024 Creatinine [Mass/Vol] 2.22 mg/dL High 0.70-1.20 [facility] Serum glucose measurement (m ass/volume)Ordered By: Gini Couch on 08-14-2024 Glucose [Mass/Vol] 101 mg/dL High 70-99 [facility] Serum or plasma calcium cory urement (mass/volume)Ordered By: Gini Couch on 08-14-2024 Calcium [Mass/Vol] 9.5 mg/dL 7.6-11.0 [facility] Serum or plasma urea nitroge n measurement (mass/volume)Ordered By: Gini Couch on 08-14-2024 Urea nitrogen [Mass/Vol] 21 mg/dL High 4-19 [facility] Sodium levelOrdered By: Mercedes Couch on 08-14-2024 Sodium [Moles/Vol] 138 mmol/L 133-145 [facility] TSH DL <= 0.005 mIU/L QnOrde red By: Gini Couch on 08-14-2024 TSH Qn 1.940 uIU/mL 0.300-4.20 0 [facility] Thyroid Stim Hormone (TSH)on 08-14-2024 TSH 1.940 uIU/mL Normal 0.300-4.20 0 [facility] Comment on above: Performed By: #### L 501.5200, L100.0100, L500.2500, L501.9520 ####[facility] [address] [place], [address] White blood cell (WBC) count Ordered By: Gini Couch on 08-14-2024 WBC (Bld) [#/Vol] 5.4 10*3/uL 4.4-11.0 [facility] Absolute lymphocyte countOrd ered By: Dangelo Botello on 06-20-2024 Lymphocytes Auto (Unsp spec) [#/Vol] 1.11 10*3/uL 0.83-4.51 [facility] Absolute neutrophil countOrd ered By: Dangelo Botello on 04-15-2025 Neutrophils (Bld) [#/Vol] 4.3 10*3/uL 2.0-7.7 [facility] Anion gap in Serum or Plasma Ordered By: Dangelo Ayan on 06-20-2024 Anion gap [Moles/Vol] 10 mmol/L 07-20 [facility] Automated lymphocyte count a s percentage of total leukocytesOrdered By: Dangelo Paganguillermo on 06-20-2024 Lymphocytes/100 WBC Auto (Unsp spec) 18.8 % Low 19-41 [facility] BUN/creatinine ratioOrdered By: [facility] on 06-20-2024 Urea nitrogen/Creatinine [Mass ratio] 8.0 mg/mg Low 10-20 [facility] Basophil percentageOrdered B y: Dangelo Botello on 06-20-2024 Basophils/100 WBC (Bld) 0.3 % 0-1 [facility] Bilirubin, totalOrdered By: Dangelo Botello on 06-20-2024 Bilirubin [Mass/Vol] 0.39 mg/dL 0.00-1.30 [facility] CBC W/Diff, Automatedon 06-06 Absolute Lymph 1.11 X10 3/uL Normal 0.83-4.51 [facility] Comment on above: Performed By: #### L 504.2610, L500.4050, L100.0100 #### [facility] [address] [place], [address] Absolute Neut 4.3 X10 3/uL Normal 2.0-7.7 [facility] Comment on above: Performed By: #### L 504.2610, L500.4050, L100.0100 #### [facility] [address] [place], [address] Basophils/100 WBC (Bld) 0.3 % Normal 0-1 [facility] Comment on above: Performed By: #### L 504.2610, L500.4050, L100.0100 #### [facility] [address] [place], [address] Eosinophils/100 WBC (Bld) 0.5 % Normal 0-5 [facility] Comment on above: Performed By: #### L 504.2610, L500.4050, L100.0100 #### [facility] [address] [place], [address] Erythrocyte distribution width (RBC) [Ratio] 17.2 % High 11.6-14.6 [facility] Comment on above: Performed By: #### L 504.2610, L500.4050, L100.0100 #### [facility] [address] [place], [address] Hematocrit (Bld) [Volume fraction] 41.0 % Normal 40-54 [facility] Comment on above: Performed By: #### L 504.2610, L500.4050, L100.0100 #### [facility] [address] [place], [address] Hemoglobin (Bld) [Mass/Vol] 13.8 g/dL Normal 13.0-16.5 [facility] Comment on above: Performed By: #### L 504.2610, L500.4050, L100.0100 #### [facility] [address] [place], [address] IG% 1.400 High 0.0-0.9 [facility] Comment on above: Result Comment: IG% - Immature Granulocytes (promyelocytes, myelocytes and metamyelocytes) > 1% indicates that a LEFT SHIFT is Present. Performed By: #### L 504.2610, L500.4050, L100.0100 #### [facility] [address] [place], [address] Lymphocytes/100 WBC (Bld) 18.8 % Low 19-41 [facility] Comment on above: Performed By: #### L 504.2610, L500.4050, L100.0100 #### [facility] [address] [place], [address] MCH (RBC) [Entitic mass] 33.3 pg High 27.0-32.0 [facility] Comment on above: Performed By: #### L 504.2610, L500.4050, L100.0100 #### [facility] [address] [place], [address] MCHC (RBC) [Mass/Vol] 33.7 g/dL Normal 32-36 [facility] Comment on above: Performed By: #### L 504.2610, L500.4050, L100.0100 #### [facility] [address] [place], [address] MCV (RBC) [Entitic vol] 99.0 fL High 80-94 [facility] Comment on above: Performed By: #### L 504.2610, L500.4050, L100.0100 #### [facility] [address] [place], [address] Monocytes/100 WBC (Bld) 6.9 % Normal 0-10 [facility] Comment on above: Performed By: #### L 504.2610, L500.4050, L100.0100 #### [facility] Laboratory [address] [place], [address] Neutrophils/100 WBC (Bld) 72.1 % High 47-70 [facility] Comment on above: Performed By: #### L 504.2610, L500.4050, L100.0100 #### [facility] [address] [place], [address] Nucleated RBC (Bld) [#/Vol] 0 10*3/uL Normal 0-5 [facility] Comment on above: Performed By: #### L 504.2610, L500.4050, L100.0100 #### [facility] [address] [place], [address] Platelet mean volume (Bld) [Entitic vol] 10.8 fL Normal 6.2-12.0 [facility] Comment on above: Performed By: #### L 504.2610, L500.4050, L100.0100 #### [facility] [address] [place], [address] Platelets (Bld) [#/Vol] 233 10*3/uL Normal 150-450 [facility] Comment on above: Performed By: #### L 504.2610, L500.4050, L100.0100 #### [facility] [address] [place], [address] RBC (Bld) [#/Vol] 4.14 10*6/uL Low 4.6-6.2 [facility] Comment on above: Performed By: #### L 504.2610, L500.4050, L100.0100 #### [facility] [address] [place], [address] RDW SD 62.4 fl High 35.1-43.9 [facility] Comment on above: Performed By: #### L 504.2610, L500.4050, L100.0100 #### [facility] [address] [place], [address] WBC (Bld) [#/Vol] 5.9 10*3/uL Normal 4.4-11.0 [facility] Comment on above: Performed By: #### L 504.2610, L500.4050, L100.0100 #### [facility] [address] [place], [address] Carbon dioxide, total [Moles /volume] in Central venous bloodOrdered By: Dangelo Botello on 06-20-2024 CO2 [Moles/Vol] 26.0 mmol/L 21.0-32.0 [facility] Chloride assayOrdered By: Raeann Botello on 06-20-2024 Chloride [Moles/Vol] 100 mmol/L 98-108 [facility] Comprehensive Metabolic Prof ilon 06-20-2024 Albumin [Mass/Vol] 4.0 g/dL Normal 3.4-4.8 [facility] Comment on above: Performed By: #### L 504.2610, L500.4050, L100.0100 #### [facility] [address] [place], [address] Albumin/Globulin [Mass ratio] 1.4 {ratio} Normal 0.9-2.4 [facility] Comment on above: Performed By: #### L 504.2610, L500.4050, L100.0100 #### [facility] [address] [place], [address] ALK PHOS 47 U/L Normal 40-129 [facility] Comment on above: Performed By: #### L 504.2610, L500.4050, L100.0100 #### [facility] [address] [place], [address] ALT [Catalytic activity/Vol] 47 U/L Normal <=46 [facility] Comment on above: Performed By: #### L 504.2610, L500.4050, L100.0100 #### [facility] [address] [place], [address] AST [Catalytic activity/Vol] 37 U/L Normal <=37 [facility] Comment on above: Performed By: #### L 504.2610, L500.4050, L100.0100 #### [facility] [address] [place], [address] Bilirubin [Mass/Vol] 0.39 mg/dL Normal 0.00-1.30 [facility] Comment on above: Performed By: #### L 504.2610, L500.4050, L100.0100 #### [facility] [address] [place], [address] BUN/CRE 8.0 RATIO Low 10-20 [facility] Comment on above: Performed By: #### L 504.2610, L500.4050, L100.0100 #### [facility] [address] [place], [address] Calcium [Mass/Vol] 9.7 mg/dL Normal 7.6-11.0 [facility] Comment on above: Performed By: #### L 504.2610, L500.4050, L100.0100 #### [facility] [address] [place], [address] Chloride [Moles/Vol] 100 mmol/L Normal 98-108 [facility] Comment on above: Performed By: #### L 504.2610, L500.4050, L100.0100 #### [facility] [address] [place], [address] CO2 [Moles/Vol] 26.0 mmol/L Normal 21.0-32.0 [facility] Comment on above: Performed By: #### L 504.2610, L500.4050, L100.0100 #### [facility] [address] [place], [address] Creatinine [Mass/Vol] 1.89 mg/dL High 0.70-1.20 [facility] Comment on above: Performed By: #### L 504.2610, L500.4050, L100.0100 #### [facility] [address] [place], [address] GAP 10 Normal 5-15 [facility] Comment on above: Performed By: #### L 504.2610, L500.4050, L100.0100 #### [facility] [address] [place], [address] GFR/1.73 sq M.predicted among non-blacks MDRD (S/P/Bld) [Vol rate/Area] 40 mL/min/{1.73_m2} Low >60 [facility] Comment on above: Result Comment: mL/m in/1.73m2 CKD-EPI Creatinine Equation (2020) Performed By: #### L 504.2610, L500.4050, L100.0100 #### [facility] [address] [place], [address] Globulin (S) [Mass/Vol] 2.8 g/dL Normal 2.2-4.2 [facility] Comment on above: Performed By: #### L 504.2610, L500.4050, L100.0100 #### [facility] [address] [place], [address] Glucose [Mass/Vol] 97 mg/dL Normal 70-99 [facility] Comment on above: Performed By: #### L 504.2610, L500.4050, L100.0100 #### [facility] [address] [place], [address] Potassium [Moles/Vol] 4.5 mmol/L Normal 3.3-5.1 [facility] Comment on above: Performed By: #### L 504.2610, L500.4050, L100.0100 #### [facility] [address] [place], [address] Sodium [Moles/Vol] 136 mmol/L Normal 133-145 [facility] Comment on above: Performed By: #### L 504.2610, L500.4050, L100.0100 #### [facility] [address] [place], [address] T PROT 6.7 g/dL Normal 5.9-8.4 [facility] Comment on above: Performed By: #### L 504.2610, L500.4050, L100.0100 #### [facility] [address] [place], [address] Urea nitrogen [Mass/Vol] 15 mg/dL Normal 4-19 [facility] Comment on above: Performed By: #### L 504.2610, L500.4050, L100.0100 #### [facility] [address] [place], [address] Eosinophil percentageOrdered By: Dangelo Botello on 06-20-2024 Eosinophils/100 WBC (Bld) 0.5 % 0-5 [facility] Erythrocyte distribution wid th (RBC) [Ratio]Ordered By: Dangelo Botello on 06-20-2024 Erythrocyte distribution width (RBC) [Entitic vol] 62.4 fL High 35.1-43.9 [facility] Erythrocyte distribution wid th ratioOrdered By: Dangelo Botello on 06-20-2024 Erythrocyte distribution width (RBC) [Ratio] 17.2 % High 11.6-14.6 [facility] Erythrocyte distribution wid th standard deviationOrdered By: Dangelo Ayan on 06-20-2024 Erythrocyte distribution width (RBC) [Ratio] 62.4 fl High 35.1-43.9 [facility] GFR/1.73 sq M.predicted martin g non-blacks MDRD (S/P/Bld) [Vol rate/Area]Ordered By: Dangelo Botello on 06-20-2024 Estimated GFR (MDRD) Non-Af Amer 40 Low >60 [facility] Comment on above: mL/min/1.73m2 CKD-EP I Creatinine Equation (2020) Glomerular filtration rate ( GFR) estimation/1.73 sq m using serum, plasma, or whole bOrdered By: Dangelo Botello on 06-20-2024 GFR/1.73 sq M.predicted among non-blacks MDRD (S/P/Bld) [Vol rate/Area] 40 mL/min/{1.73_m2} Low >60 [facility] Comment on above: mL/min/1.73m2 CKD-EP I Creatinine Equation (2020) Hematocrit Auto (Bld) [Volum e fraction]Ordered By: Dangelo Botello on 06-20-2024 Hematocrit (Bld) [Volume fraction] 41.0 % 40-54 [facility] Hemoglobin measurementOrdere d By: Dangelo Botello on 06-20-2024 Hemoglobin (Bld) [Mass/Vol] 13.8 g/dL 13.0-16.5 [facility] Immature granulocytes/100 WB C Auto (Bld)Ordered By: Dangelo Botello on 06-20-2024 Immature granulocytes/100 WBC (Bld) 1.400 % High 0.0-0.9 [facility] Comment on above: IG% - Immature Granu locytes (promyelocytes, myelocytes and metamyelocytes) > 1% indicates that a LEFT SHIFT is Present. LDHon 06-20-2024 LDH 249 U/L High 87-241 [facility] Comment on above: Order Comment: 1 Performed By: #### L 504.2610, L500.4050, L100.0100 #### [facility] [address] [place], [address] Laboratory - Chemistry and C hemistry - challengeOrdered By: Dangelo Botello on 06-20-2024 AST [Catalytic activity/Vol] 37 U/L <38 [facility] Lactate dehydrogenase (LDH) measurementOrdered By: Dangelo Botello on 06-20-2024 LDH [Catalytic activity/Vol] 249 U/L High 87-241 [facility] Lymphocytes Auto (Unsp spec) [#/Vol]Ordered By: Dangelo Botello on 06-20-2024 Lymphocytes (Bld) [#/Vol] 1.11 10*3/uL 0.83-4.51 [facility] Lymphocytes/100 WBC Auto (Un sp spec)Ordered By: Dangelo Botello on 06-20-2024 Lymphocytes/100 WBC (Bld) 18.8 % Low 19-41 [facility] MCV (mean corpuscular volume ) determinationOrdered By: Dangelo Botello on 06-20-2024 MCV (RBC) [Entitic vol] 99.0 fL High 80-94 [facility] Mean corpuscular hemoglobin (MCH) determinationOrdered By: Dangelo Botello on 06-20-2024 MCH (RBC) [Entitic mass] 33.3 pg High 27.0-32.0 [facility] Mean corpuscular hemoglobin concentration (MCHC) determinationOrdered By: Dangelo Botello on 06-20-2024 MCHC (RBC) [Mass/Vol] 33.7 g/dL 32-36 [facility] Mean platelet volume determi nationOrdered By: Dangelo Botello on 06-20-2024 Platelet mean volume (Bld) [Entitic vol] 10.8 fL 6.2-12.0 [facility] Monocyte percentageOrdered B y: Dangelo Botello on 06-20-2024 Monocytes/100 WBC (Bld) 6.9 % 0-10 [facility] Neutrophil percentageOrdered By: Dangelo Botello on 06-20-2024 Neutrophils/100 WBC (Bld) 72.1 % High 47-70 [facility] Nucleated red blood cell per centageOrdered By: Dangelo Botello on 06-20-2024 Nucleated RBC/100 WBC (Bld) [Ratio] 0 % 0-5 [facility] Oncology Visit Reporton 06-06 Oncology Visit Report [facility] [place] [facility] [address] [place] [address] OFFICE VISIT Date of Service: 06/20/24 1334 MR#: [id number] Acct: [id number] Name: YEFRI YANEZ Rep #: [id number] : 1965 From: Dangelo Botello MD Age/Sex: 59/M [place] [facility] [place] Status: Signed HPI Subjective Date of Service 06/20/24 Chief Complaint F/u for Metastatic Renal cancer. History of Present Illness 59-year-old man was diagnosed with right renal cancer stage IV with mets to right ribs and L4 in June 2021. Soft tissue/right chest wall mass biopsy from 07/01/2021 showed metastatic renal cell cancer,. He was diagnosed with renal cell carcinoma stage IV(cT2 cNx M1) he started therapy on a clinical trial with cabozantinib and nivolumab on 08/08/2021. Developed worsening hypotension so cabozantinib was held on 08/18/2021 and resumed on 09/11/2021. Nivolumab was held on 09/11/2021 due to pneumonitis and received prednisone. He was taken off clinical trial because of insurance change. He underwent palliative radiation therapy to lumbar spine in December 2021. He underwent right radical nephrectomy on 02/06/2022 at . Pathology showed right renal cell carcinoma, clear-cell type, 5.3 cm, grade 3, tumor invades renal vein and perinephric adipose tissue margins negative. Pathology showed pT3a pNx.his last CT scan on 03/26/2022 showed no evidence of progressive disease, right nephrectomy, right rib mass. Dr. Wilburn is no longer on his plan so he was referred here for further management. He remains on cabozantinib 20 mg daily. Comes for follow up after CT. Feeling well [facility] Medical History Abnormal chest x-ray Warfarin-induced coagulopathy Chronic a-fib Atrial fibrillation CKD (chronic kidney disease) CKD (chronic kidney disease), stage III Systolic CHF Tobacco use NIMCO on CPAP Metastatic renal cell carcinoma to bone Renal cell cancer Hyperlipidemia GERD (gastroesophageal reflux disease) COPD (chronic obstructive pulmonary disease) Atrial fibrillation Hypertension Surgical History History of cardiac cath ( 07/2021) History of cardioversion ( 09/2021) History of nephrectomy, right Family History Father Cancer Mother Heart disease Hypertension Myocardial infarction Social History household members: spouse and family Smoking Status: Current every day smoker tobacco type: cigars Electronic Cigarette Use: with nicotine alcohol intake: current alcohol intake frequency: a few times a month substance use type: does not use Intake Vital Signs 12/22/23 13:34 06/05/24 13:45 06/20/24 13:38 06/20/24 13:40 Height 5 ft 11 in 5 ft 11 in 5 ft 11 in 5 ft 11 in Weight: 119.833 kg BMI 36.8 BP 106/79 Blood Pressure Location Rt brachial Position Sitting Respiration 18 Pulse 99 Pulse Source Monitor Temp 98.1 F Temperature Source Temporal Artery Pulse Oximetry (%) 95 Oxygen Delivery Method room air Intake Is patient in pain?: No Allergies lisinopril Allergy (Severe, Verified 06/20/24 13:36) Angioedema guaifenesin (From Mucinex) Allergy (Intermediate, Verified 06/20/24 13:36) Bleeding aspirin (ASA) Allergy (Verified 06/20/24 13:36) Other mushroom (mushrooms) Allergy (Verified 06/20/24 13:36) Hives Penicillins Allergy (Verified 06/20/24 13:36) PT UNSURE OF REACTION shellfish derived Allergy (Verified 06/20/24 13:36) Hives Medications ???Medication ???Instructions ???Recorded ???Confirmed ???Type cyclobenzaprine 10 mg tablet 10 mg PO TID PRN Spasms 12/07/21 0 06/20/24 History albuterol sulfate 2.5 mg/3 mL 2.5 mg (3 mL) inhalation PRN PRN 0 06/29/22 06/20/24 Rx (0.083 %) solution for nebulization Shortness Of Breath #75 mL ferrous sulfate 325 mg (65 mg 325 mg PO BID #30 tabs 06/29/22 Rx iron) tablet fluticasone fur. 100 mcg-umeclid 1 inh inhalation DAILY #28 ea 06/0706/20/24 Rx 62.5 mcg-vilant 25 mcg inhalat.powder (Trelegy Ellipta) nystatin 100,000 unit/mL oral 100,000 unit PO DAILY #60 mL 06/2906/20/24 Rx suspension pantoprazole 40 mg tablet,delayed 40 mg PO DAILY gerd #30 tabs 06/0706/20/24 Rx release potassium chloride 20 mEq 20 meq PO DAILY #30 tabs 06/29/22 06/20/24 Rx tablet,extended release rosuvastatin 40 mg tablet 40 mg PO DAILY cholesterol #30 tab s 06/29/22 06/20/24 Rx warfarin 10 mg tablet 8 mg (0.8 x 10 mg) PO DAILY Check 06/29/22 06/20/24 Rx with primary doctor #30 tabs bumetanide 2 mg tablet 2 mg PO BID #180 tabs 09/29/22 Rx losartan 50 mg tablet 50 mg PO DAILY #90 tabs 09/29/22 0 06/20/24 Rx spiron (more content not included)... Normal [facility] Platelet countOrdered By: Raeann Botello on 06-20-2024 Platelets (Bld) [#/Vol] 233 10*3/uL 150-450 [facility] Potassium (Unsp spec) [Mass/ Vol]Ordered By: Dangelo Botello on 06-20-2024 Potassium [Moles/Vol] 4.5 mmol/L 3.3-5.1 [facility] Potassium measurement (mass/ volume)Ordered By: Dangelo Botello on 06-20-2024 Potassium (Unsp spec) [Mass/Vol] 4.5 mmol/L 3.3-5.1 [facility] RBC Auto (Bld) [#/Vol]Ordere d By: Dangelo Botello on 06-20-2024 RBC (Bld) [#/Vol] 4.14 10*6/uL Low 4.6-6.2 [facility] Serum creatinine measurement (mass/volume)Ordered By: Dangelo Botello on 06-20-2024 Creatinine [Mass/Vol] 1.89 mg/dL High 0.70-1.20 [facility] Serum globulin measurementOr dered By: Dangelo Botello on 06-20-2024 Globulin (S) [Mass/Vol] 2.8 g/dL 2.2-4.2 [facility] Serum glucose measurement (m ass/volume)Ordered By: Dangelo Botlelo on 06-20-2024 Glucose [Mass/Vol] 97 mg/dL 70-99 [facility] Serum or plasma alanine stafford otransferase (ALT) measurementOrdered By: Dangelo Botello on 06-20-2024 ALT [Catalytic activity/Vol] 47 U/L <47 [facility] Serum or plasma albumin cory urement (mass/volume)Ordered By: Dangelo Botello on 06-20-2024 Albumin [Mass/Vol] 4.0 g/dL 3.4-4.8 [facility] Serum or plasma albumin/glob ulin mass ratioOrdered By: Dangelo Botello on 06-20-2024 Albumin/Globulin [Mass ratio] 1.4 {ratio} 0.9-2.4 [facility] Serum or plasma alkaline damaso sphatase measurementOrdered By: Dangelo Botello on 06-20-2024 ALP [Catalytic activity/Vol] 47 U/L 40-129 [facility] Serum or plasma calcium cory urement (mass/volume)Ordered By: Dangelo Botello on 06-20-2024 Calcium [Mass/Vol] 9.7 mg/dL 7.6-11.0 [facility] Serum or plasma urea nitroge n measurement (mass/volume)Ordered By: Dangelo Botello on 06-20-2024 Urea nitrogen [Mass/Vol] 15 mg/dL 4-19 [facility] Sodium levelOrdered By: Bruno Botello on 06-20-2024 Sodium [Moles/Vol] 136 mmol/L 133-145 [facility] Total proteinOrdered By: Jose Botello on 06-20-2024 Protein [Mass/Vol] 6.7 g/dL 5.9-8.4 [facility] White blood cell (WBC) count Ordered By: Dangelo Botello on 06-20-2024 WBC (Bld) [#/Vol] 5.9 10*3/uL 4.4-11.0 [facility] CREATININE FINGERSTICKon CREATININE WB < 1.0 Normal 0.70-1.30 [facility] Comment on above: Performed By: #### L 9100.0200 ####[facility] [address] [place], [address] EGFR WB > 60.0000 Normal >60 [facility] Comment on above: Performed By: #### L 9100.0200 ####[facility] [address] [place], [address] CT Chest, Abd, Pel w/Contras ton 06-13-2024 CT Chest, Abd, Pel w/Contrast [facility] [address] [place] [address] CT Chest, Abd, Pel w/Contrast MR#: [id number] Acct: [id number] Name: YEFRI YANEZ Rep #: [id number] : 1965 M 59 From: Carla Garcia MD PCP: Dr. Daksha Turner MD Status: REG CLI Study: CT Chest, Abd, Pel w/Contrast Date of Exam: Exam# [id number] Ordering Dr: Dangelo Botello MD PROCEDURE: CT CHEST, ABD, PEL W/CONTRAST 06/13/2024 REASON FOR EXAM: KIDNEY CANCER IV CONTRAST ONLY TECHNIQUE: Chest, abdomen and pelvis CT with intravenous contrast. Coronal and Sagittal reconstruction series were provided. One or more dose reduction techniques were used (e.g., Automated exposure control, adjustment of the mA and/or kV according to patient size, use of iterative reconstruction technique. PATIENT PREPARATION: Per protocol ORAL CONTRAST TYPE: None. CONTRAST: Isovue 370 VOLUME: 100mL 18 gauge IV RADIATION DOSE SUMMARY: CTDlvol: 2362.9 mGy DLP: 1507.9 mGycm COMPARISON: None. FINDINGS: CT CHEST: Hardware: None Lymph nodes: No lymphadenopathy. Heart and Vasculature: The heart is normal in size. The great vessels are normal in size and caliber. No pericardial effusion. Lungs and Airways: Central airways are patent. Streaky opacity within the right middle lobe, likely scarring or subsegmental atelectasis. No suspicious parenchymal abnormality. No dominant masses. Pleura: No pleural effusion or pneumothorax. Bones: There is an expansile destructive lesion along the anterolateral right 6th rib measuring approximately 4.9 x 3.6 cm concerning for osseous metastatic disease. CT ABDOMEN/PELVIS: Liver: Unremarkable Gallbladder: Unremarkable Spleen: Unremarkable Pancreas: Unremarkable Adrenals: Unremarkable Kidneys: The right kidney is surgically absent. The left kidney is unremarkable. No left-sided hydronephrosis. Bladder: No focal bladder wall thickening. Reproductive Organs: Unremarkable Bowel: Lack of oral contrast limits evaluation of the bowel. No small bowel or large bowel obstruction or dilation. The appendix is unremarkable. No free fluid. Diverticulosis within the sigmoid colon. Appendix: Unremarkable Lymph nodes: Unremarkable Vasculature: Mild infrarenal aneurysmal dilation of the descending aorta measuring approximately 4.1 x 4.0 cm Peritoneum / Retroperitoneum: Unremarkable Bones: No acute fracture. CT/CT Chest, Abd, Pel w/Contrast IMPRESSION: *Expansile destructive lesion along the anterolateral right 6th rib concerning for osseous metastatic disease. *Mild infrarenal aneurysmal dilation of the descending aorta measuring up to 4.1 x 4.0 cm. *Status post right-sided nephrectomy. Reading Location: [facility] CC: Dr. Daksha Turner MD; Dr. Dangelo Botello MD Return Checker: Signed Normal [facility] Creatinine measurement at be dsideOrdered By: Dangelo Botello on 06-13-2024 Bedside Creatinine < 1.0 mg/dL 0.70-1.30 [facility] EGFROrdered By: Dangelo Botello on 06-13-2024 Bedside Estimated GFR (eGFR) > 60.0000 mL/min >60 [facility] GFR/1.73 sq M.predicted among non-blacks MDRD (S/P/Bld) [Vol rate/Area] mL/min/{1.73_m2} >60 [facility] 75-QH-Upzgzmn DOrdered By: Tangela Chiu on 03-22-2024 Vitamin D 25-Hydroxy 30.8 ng/mL [facility] Comment on above: Vitamin D 25(OH) Sta tus Range Deficiency <20 ng/mL (50nmol/L) Insufficiency 20 - 30 ng/mL (50 - 75 nmol/L) Sufficiency 30 - 100 ng/mL (75 - 250 nmol/L) Toxicity >100 ng/mL (>250 nmol/L) Blood urea nitrogen (BUN)/cr eatinine ratioOrdered By: Isidra Chiu on 03-22-2024 Urea nitrogen/Creatinine [Mass ratio] 10.8 mg/mg 10-20 [facility] Carbon dioxide measurementOr dered By: Isidra Chiu on 03-22-2024 CO2 [Moles/Vol] 26.0 mmol/L 21.0-32.0 [facility] Chloride measurementOrdered By: Isidra Chiu on 03-22-2024 Chloride [Moles/Vol] 107 mmol/L 98-107 [facility] Estimated glomerular filtrat ion rate (GFR) AmericanOrdered By: Isidra Chiu on 03-22-2024 Estimated GFR (MDRD) Amer 39 mL/min Low >60 [facility] Comment on above: GFR Calc Glomerular filtration rate ( GFR) estimationOrdered By: Isidra Chiu on 03-22-2024 Estimated GFR (MDRD) Non-Af Amer 32 mL/min Low >60 [facility] Comment on above: Non- GFR Calc Glucose measurementOrdered B y: Isidra Chiu on 03-22-2024 Glucose [Mass/Vol] 118 mg/dL High 74-106 [facility] Comment on above: Fasting Glucose resu lt from 100 to 125 mg/dL suggests IMPAIRED HOMEOSTASIS per A.D.A. criteria. Phosphorus measurementOrdere d By: Isidra Chiu on 03-22-2024 Phosphorus Level 2.6 mg/dL 2.5-4.9 [facility] Potassium measurementOrdered By: Isidra Chiu on 03-22-2024 Potassium [Moles/Vol] 4.3 mmol/L 3.5-5.1 [facility] Renal Profileon 03-22-2024 Albumin [Mass/Vol] 3.1 g/dL Low 3.2-5.0 [facility] Comment on above: Performed By: #### L 500.3600, L506.1000 #### [facility] [address] [place], [address] BUN/CRE 10.8 RATIO Normal 10-20 [facility] Comment on above: Performed By: #### L 500.3600, L506.1000 #### [facility] [address] [place], [address] CA,Total 8.3 mg/dL Low 8.5-10.1 [facility] Comment on above: Performed By: #### L 500.3600, L506.1000 #### [facility] [address] [place], [address] Chloride [Moles/Vol] 107 mmol/L Normal 98-107 [facility] Comment on above: Performed By: #### L 500.3600, L506.1000 #### [facility] [address] [place], [address] CO2 [Moles/Vol] 26.0 mmol/L Normal 21.0-32.0 [facility] Comment on above: Performed By: #### L 500.3600, L506.1000 #### [facility] [address] [place], [address] Creatinine [Mass/Vol] 2.22 mg/dL High 0.70-1.30 [facility] Comment on above: Result Comment: The validity of the calculated GFR GFRAA in patients over 70 years has not been determined. Clinical correlation is essential. Performed By: #### L 500.3600, L506.1000 #### [facility] [address] [place], [address] EST GFR - AA 39 mL/min Low >60 [facility] Comment on above: Result Comment: Afri can Lithuanian GFR Calc Performed By: #### L 500.3600, L506.1000 #### [facility] [address] [place], [address] GFR/1.73 sq M.predicted among non-blacks MDRD (S/P/Bld) [Vol rate/Area] 32 mL/min/{1.73_m2} Low >60 [facility] Comment on above: Result Comment: Non- GFR Calc Performed By: #### L 500.3600, L506.1000 #### [facility] [address] [place], [address] Glucose [Mass/Vol] 118 mg/dL High 74-106 [facility] Comment on above: Result Comment: Fast ing Glucose result from 100 to 125 mg/dL suggests IMPAIRED HOMEOSTASIS per A.D.A. criteria. Performed By: #### L 500.3600, L506.1000 #### [facility] [address] [place], [address] Phosphate [Mass/Vol] 2.6 mg/dL Normal 2.5-4.9 [facility] Comment on above: Performed By: #### L 500.3600, L506.1000 #### [facility] [address] [place], [address] Potassium [Moles/Vol] 4.3 mmol/L Normal 3.5-5.1 [facility] Comment on above: Performed By: #### L 500.3600, L506.1000 #### [facility] [address] [place], [address] Sodium [Moles/Vol] 138 mmol/L Normal 136-145 [facility] [facility] Comment on above: Performed By: #### L 500.3600, L506.1000 #### [facility] [address] [place], [address] Urea nitrogen [Mass/Vol] 24 mg/dL High - [facility] Comment on above: Performed By: #### L 500.3600, L506.1000 #### [facility] [address] [place], [address] Serum or plasma albumin cory urement (mass/volume)Ordered By: Isidra Chiu on 03-22-2024 Albumin [Mass/Vol] 3.1 g/dL Low 3.2-5.0 [facility] Serum or plasma calcium cory urement (mass/volume)Ordered By: Isidra Chiu on 03-22-2024 Calcium [Mass/Vol] 8.3 mg/dL Low 8.5-10.1 [facility] Serum or plasma creatinine m easurement (mass/volume)Ordered By: Isidra Chiu on 03-22-2024 Creatinine [Mass/Vol] 2.22 mg/dL High 0.70-1.30 [facility] Comment on above: The validity of the calculated GFR & GFRAA in patients over 70 years has not been determined. Clinical correlation is essential. Serum or plasma urea nitroge n measurement (mass/volume)Ordered By: Isidra Chiu on 03-22-2024 Urea nitrogen [Mass/Vol] 24 mg/dL High 09-22 [facility] Sodium levelOrdered By: Shawna Chiu on 03-22-2024 Sodium [Moles/Vol] 138 mmol/L 136-145 [facility] Vitamin D,25 Hydroxyon 03-22 Vitamin D 25-OH 30.8 ng/mL Normal [facility] Comment on above: Result Comment: Constanza min D 25(OH) Status Range Deficiency <20 ng/mL (50nmol/L) Insufficiency 20 - 30 ng/mL (50 - 75 nmol/L) Sufficiency 30 - 100 ng/mL (75 - 250 nmol/L) Toxicity >100 ng/mL (>250 nmol/L) Performed By: #### L 500.3600, L506.1000 #### [facility] [address] [place], [address] Lung Screeningon 02-08-[address] Lung Screening [facility] Services [address] [place] [address] Lung Screening MR#: [id number] Acct: [id number] Name: YEFRI YANEZ Rep #: [id number] : 1965 M 59 From: Rony amador MD PCP: Dr. Daksha Turner MD Status: [facility] CLI Study: Low Dose CT Lung Screening Date of Exam: 02/07 Exam# [id number] Ordering Dr: Daksha Turner [id number] STUDY: LOW DOSE CT LUNG CANCER SCREENING REASON FOR EXAM: Male, 59 years old. 25 pack year.. 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 Low dose technique was utilized (average mAS-38 and kVp 120). 1.25 mm axial source images with a slice interval of 1.25-mm were reconstructed in lung windows. 2.5 mm axial source images with a slice interval of 2.5-mm were reconstructed in lung windows. 5.0 mm axial source images with a slice interval of 5.0-mm were reconstructed in soft tissue windows. Nodule measured using lung windows on PACS and/or independent workstation with automated measurement of minimum and maximum diameter. Nodule measurement reported as average diameter rounded to the nearest whole number. Growth is defined as an increase ins size of greater than 1.5 mm. COMPARISON: CT of the chest dated October 07, 2023. FINDINGS: Total lung nodules (excluding granulomas): No pulmonary masses or nodules are present. Small right upper lobe calcified granuloma seen in the lateral subpleural region on image 120/275 series 2. Emphysema: Mild Endobronchial lesion: None present Aorta: No aneurysmal dilatation No demonstrated pneumonic consolidation or pulmonary edema or pleural effusion. There are diffuse interstitial fibrotic changes of the lungs. There is no demonstrated pleural abnormality. Normal heart and pericardium. There are calcifications of the coronary arteries. Normal mediastinum. Normal hilar regions. Normal unenhanced pulmonary arteries. Normal aorta arch and descending thoracic aorta. There are multi-level degenerative changes of the thoracic spine. 6th right rib: Redemonstration of expansile lytic mass of the lateral aspect of the right sixth rib with underlying pleural thickening and concavity bulging into the periphery of the right middle lobe and with underlying mild bronchiectasis, cystic change, interstitial fibrosis at the periphery of the lesion likely due to desmoplastic reaction or prior radiation or chemotherapy treatment. No new abnormalities are present. There is no demonstrated abnormality of the visualized upper abdomen. CT/Low Dose CT Lung Screening IMPRESSION: 1. Mild cystic emphysematous changes 2. No lung masses or nodules or spiculated lesions 3. 6th right rib: Redemonstration of expansile lytic mass of the lateral aspect of the right sixth rib with underlying pleural thickening and concavity bulging into the periphery of the right middle lobe and with underlying mild bronchiectasis, cystic change, interstitial fibrosis at the periphery of the lesion likely due to desmoplastic reaction or prior radiation or chemotherapy treatment. No new abnormalities are present. 4. Lung-RADS category 2 - Continue annual screening with LDCT in 12 months. IMPORTANT NOTES FOR USE: ACR Lung-RADS Version 1.0 Assessment Categories Release Date: 2021 Classification system Category 0 (Incomplete)- prior CT studies were performed but are not available, lungs incompletely imaged, findings suggest inflammation or infection Category 1 (negative, <1% chance of malignancy) (no lung nodules/lung nodule(s) with specific findings favoring benign nodule(s)) Category 2 (benign appearance or behavior, <1% chance of malignancy) juxtapleural nodule <10mm mean diameter at baseline OR new and smooth, solid, oval, lentiform, or triangular Category 3 nodules that are stable or decreased at 6 months Category 3 (probably benign, 1-2% chance of malignancy) solid nodule(s)(between 6 and 8 mm at baseline; new nodule between 4 mm and 6 mm) Category 4A lesion, stable or decreased in size at 3-month follow-up (excluding airway nodules) Category 4A (suspicious, 5-15% chance of malignancy) (version 1.1 change previously suspicious) solid nodule(s) (?8 mm to <15 mm at baseline or growing nodule(s) <8 mm) Category 4B (very suspicious, >15% chance of malignancy) stable or growing airway nodule, segmental or more proximal (solid nodule(s) ? 15 mm at baseline or new or growing, and ?8 mm) Category 4X (very suspicious, >15% chance of malignancy) category 3 or 4 nodules with additional features (more content not included)... Normal [facility] Sex Hormone-binding Globulin on 01-13-2024 SHBG 23.8 nmol/L Normal 19.3-76.4 [facility] Comment on above: Order Comment: PER P T-JUST ORDER FROM JOHNNY DATED FOR TODAYOrder Date: 01/11/24Order Info: [id number] - SEXHORM Result Comment: Perf ormed at: CB - [facility] [address] [id number] Staff Attorney: Elías Moreau PhD, Phone: [phone] Performed By: #### L 3108.5063, D214.4916, V8549.1216 ####[facility] [address], [address] [employer] Decub and/or Erecton 01-11-2024 Abd Inc Decub and/or Erect [facility] Imaging Services [address] [place], [place] [address] [employer] Decub and/or Erect MR#: [id number] Acct: [id number] Name: YEFRI YANEZ Rep #: [id number] : 1965 M 59 From: Lul Peters MD PCP: Dr. Daksha Turner MD Status: REG CLI Study: Abd Inc Decub and/or Erect Date of Exam: 01/10 Exam# [id number] Ordering Dr: Daksha Turner [id number] STUDY: X-RAY - ABDOMEN/PELVIS REASON FOR EXAM: Male, 59 years old. bloating TECHNIQUE: AP supine and upright views of the abdomen and pelvis. COMPARISON: None. FINDINGS: Normal visualized lung bases. There is an unremarkable bowel gas pattern. There is no demonstrated free abdominal air. The visualized liver, spleen and kidneys are grossly normal in size and morphology. Normal soft tissue structures. Normal visualized osseous structures. RAD/Abd Inc Decub and/or Erect IMPRESSION: Normal x-ray examination of the abdomen and pelvis. Electronically Signed: Lul Peters MD at 12:31 EST , CC: Dr. Daksha Turner MD Return Checker: Signed Normal [facility] FSH and LHon 01-11-2024 FSH 3.4 mIU/mL Normal [facility] Comment on above: Order Comment: PER P T-JUST ORDER FROM JOHNNY DATED FOR TODAY Order Date: 01/11/24 Order Info: [id number] - FSHLH Result Comment: NORMAL REFERENCE RANGES FEMALE FOLLICULAR 2.3 - 12.6 mIU/mL MID-CYCLE PEAK 5.2 - 17.5 mIU/mL LUTEAL 1.7 - 12.9 mIU/mL POST-MENOPAUSAL ON MHT 5.9 - 72.8 mIU/mL NOT ON MHT 12.7 - 132.2 mlU/mL MALE 0.7 - 10.8 mIU/mL Performed By: #### L 3100.5060, L509.3000, L3100.5055 #### [facility] [address] [place], [address] LH 4.5 mIU/mL Normal [facility] Comment on above: Order Comment: PER P T-JUST ORDER FROM Mimvi DATED FOR TODAY Order Date: 01/11/24 Order Info: [id number] - FSHLH Result Comment: NORMAL REFERENCE RANGES FEMALE FOLLICULAR 1.9 - 26.2 mIU/mL MID-CYCLE PEAK 22.8 - 76.1 mIU/mL LUTEAL 0.6 - 16.6 mIU/mL POST-MENOPAUSAL ON MHT 1.1 - 52.4 mIU/mL NOT ON MHT 8.6 - 61.8 mIU/mL MALE 1.2 - 10.6 mIU/mL Performed By: #### L 3100.5060, L509.3000, L3100.5055 #### [facility] [address] [place], [place], [address] Testosterone, Serum Totalon 01-11-2024 Testosterone [Mass/Vol] 398.15 ng/dL Normal [facility] Comment on above: Order Comment: PER P T-JUST ORDER FROM Mimvi DATED FOR Order Date: 01/11/24Order Info: [id number] - INDY Result Comment: CENT RAL 90% REFERENCE RANGES MALE AGE <50 197.44 - 669.58 ng/dL MALE AGE > or = 50 187.72 - 684.19 ng/dL FEMALE AGE <50 8.38 - 35.01 ng/dL FEMALE AGE > or = 50 <7.00 - 35.92 ng/dL Effective as of 10/01/20 Performed By: #### L 3100.5060, L509.3000, L3100.5055 ####[facility] [address] [place], [address] L5000.0012on 12-25-2023 Vitamin B12 Normal [facility] Comment on above: Result Comment: TEST RESULTS LIMITS Vitamin B12 291 pg/mL [id number] TESTING PERFORMED AT [facility]. ORIGINAL REPORT ON FILE IN LAB CONTAINS ADDITIONAL TEST SITE INFORMATION. Performed By: #### L 5000.0012 ####[facility] [address] [place], [address] CBC-Complete Blood Cnt No Di ffon 12-22-2023 Erythrocyte distribution width (RBC) [Ratio] 16.7 % High 11.6-14.6 [facility] Comment on above: Order Comment: Order Date: 11/29/23Order Info: [id number] - CBC Performed By: #### L 500.4100, L100.0500, L500.4050, L503.6550, L503.6150 ####[facility] [address] [place], [address] Hematocrit (Bld) [Volume fraction] 43.7 % Normal 40-54 [facility] Comment on above: Order Comment: Order Date: 11/29/23Order Info: [id number] - CBC Performed By: #### L 500.4100, L100.0500, L500.4050, L503.6550, L503.6150 ####[facility] [address] [place], [address] Hemoglobin (Bld) [Mass/Vol] 14.8 g/dL Normal 13.0-16.5 [facility] Comment on above: Order Comment: Order Date: 11/29/23Order Info: [id number] - CBC Performed By: #### L 500.4100, L100.0500, L500.4050, L503.6550, L503.6150 ####[facility] [address] [place], [address] MCH (RBC) [Entitic mass] 34.1 pg High 27.0-32.0 [facility] Comment on above: Order Comment: Order Date: 11/29/23Order Info: [id number] - CBC Performed By: #### L 500.4100, L100.0500, L500.4050, L503.6550, L503.6150 ####[facility] [address] [place], [address] MCHC (RBC) [Mass/Vol] 33.9 g/dL Normal 32-36 [facility] Comment on above: Order Comment: Order Date: 11/29/23Order Info: [id number] - CBC Performed By: #### L 500.4100, L100.0500, L500.4050, L503.6550, L503.6150 ####[facility] [address] [place], [address] MCV (RBC) [Entitic vol] 100.7 fL High 80-94 [facility] Comment on above: Order Comment: Order Date: 11/29/23Order Info: [id number] - CBC Performed By: #### L 500.4100, L100.0500, L500.4050, L503.6550, L503.6150 ####[facility] [address] [place], [address] Platelet mean volume (Bld) [Entitic vol] 11.4 fL Normal 6.2-12.0 [facility] Comment on above: Order Comment: Order Date: 11/29/23Order Info: [id number] - CBC Performed By: #### L 500.4100, L100.0500, L500.4050, L503.6550, L503.6150 ####[facility] [address] [place], [address] Platelets (Bld) [#/Vol] 219 10*3/uL Normal 150-450 [facility] Comment on above: Order Comment: Order Date: 11/29/23Order Info: [id number] - CBC Performed By: #### L 500.4100, L100.0500, L500.4050, L503.6550, L503.6150 ####[facility] [address] [place], [address] RBC (Bld) [#/Vol] 4.34 10*6/uL Low 4.6-6.2 [facility] Comment on above: Order Comment: Order Date: 11/29/23Order Info: [id number] - CBC Performed By: #### L 500.4100, L100.0500, L500.4050, L503.6550, L503.6150 ####[facility] [address] [place], [address] RDW SD 62.4 fl High 35.1-43.9 [facility] Comment on above: Order Comment: Order Date: 11/29/23Order Info: [id number] - CBC Performed By: #### L 500.4100, L100.0500, L500.4050, L503.6550, L503.6150 ####[facility] [address] [place], [address] WBC (Bld) [#/Vol] 7.6 10*3/uL Normal 4.4-11.0 [facility] Comment on above: Order Comment: Order Date: 11/29/23Order Info: [id number] - CBC Performed By: #### L 500.4100, L100.0500, L500.4050, L503.6550, L503.6150 ####[facility] [address] [place], [address] Comprehensive Metabolic Prof [facility] 10-16-2024 Albumin [Mass/Vol] 3.2 g/dL Normal 3.2-5.0 [facility] Comment on above: Order Comment: Order Date: 11/29/23Order Info: [id number] - CMPOrder Info: [id number] - LIPIDOrder Info: [id number] - FEOrder Info: [id number] - MARTIN Performed By: #### L 500.4100, L100.0500, L500.4050, L503.6550, L503.6150 ####[facility] [address] [place], [address] Albumin/Globulin [Mass ratio] 0.9 {ratio} Normal 0.9-2.4 [facility] Comment on above: Order Comment: Order Date: 11/29/23Order Info: [id number] - CMPOrder Info: - LIPIDOrder Info: [id number] - FEOrder Info: [id number] - MARTIN Performed By: #### L 500.4100, L100.0500, L500.4050, L503.6550, L503.6150 ####[facility] [address] [place], [address] ALK P 64 U/L Normal 45-117 [facility] Comment on above: Order Comment: Order Date: 11/29/23Order Info: [id number] - CMPOrder Info: - LIPIDOrder Info: [id number] - FEOrder Info: [id number] - MARTIN Performed By: #### L 500.4100, L100.0500, L500.4050, L503.6550, L503.6150 ####[facility] [address] [place], [address] ALT [Catalytic activity/Vol] 48 U/L Normal 16-61 [facility] Comment on above: Order Comment: Order Date: 11/29/23Order Info: 07-1 - CMPOrder Info: [id number] - LIPIDOrder Info: [id number] - FEOrder Info: [id number] - AMRTIN Performed By: #### L 500.4100, L100.0500, L500.4050, L503.6550, L503.6150 ####[facility] [address] [place], [address] AST [Catalytic activity/Vol] 37 U/L Normal 15-37 [facility] Comment on above: Order Comment: Order Date: 11/29/23Order Info: [id number] - CMPOrder Info: [id number] - LIPIDOrder Info: [id number] - FEOrder Info: [id number] - MARTIN Performed By: #### L 500.4100, L100.0500, L500.4050, L503.6550, L503.6150 ####[facility] [address] [place], [address] Bilirubin [Mass/Vol] 0.50 mg/dL Normal 0.20-1.00 [facility] Comment on above: Order Comment: Order Date: 11/29/23Order Info: [id number] - CMPOrder Info: [id number] - LIPIDOrder Info: [id number] - FEOrder Info: [id number] - MARTIN Result Comment: For patients on eltrombopag therapy, use of Dimension [place] TBIL is not recommended. Performed By: #### L 500.4100, L100.0500, L500.4050, L503.6550, L503.6150 ####[facility] [address] [place], [address] BUN/CRE 10.2 RATIO Normal 10-20 [facility] Comment on above: Order Comment: Order Date: 11/29/23Order Info: [id number] - CMPOrder Info: [id number] - LIPIDOrder Info: [id number] - FEOrder Info: [id number] - MARTIN Performed By: #### L 500.4100, L100.0500, L500.4050, L503.6550, L503.6150 ####[facility] [address] [place], [address] CA,Total 9.0 mg/dL Normal 8.5-10.1 [facility] Comment on above: Order Comment: Order Date: 11/29/23Order Info: [id number] - CMPOrder Info: [id number] - LIPIDOrder Info: [id number] - FEOrder Info: [id number] - MARTIN Performed By: #### L 500.4100, L100.0500, L500.4050, L503.6550, L503.6150 ####[facility] [address] [place], [address] Chloride [Moles/Vol] 106 mmol/L Normal 98-107 [facility] Comment on above: Order Comment: Order Date: 11/29/23Order Info: 785- - CMPOrder Info: [id number] - LIPIDOrder Info: [id number] - FEOrder Info: [id number] - MARTIN Performed By: #### L 500.4100, L100.0500, L500.4050, L503.6550, L503.6150 ####[facility] [address] [place], [address] CO2 [Moles/Vol] 25.0 mmol/L Normal 21.0-32.0 [facility] Comment on above: Order Comment: Order Date: 11/29/23Order Info: [id number] - CMPOrder Info: [id number] - LIPIDOrder Info: [id number] - FEOrder Info: [id number] - MARTIN Performed By: #### L 500.4100, L100.0500, L500.4050, L503.6550, L503.6150 ####[facility] [address] [place], [address] Creatinine [Mass/Vol] 1.86 mg/dL High 0.70-1.30 [facility] Comment on above: Order Comment: Order Date: 11/29/23Order Info: 07-1 - CMPOrder Info: [id number] - LIPIDOrder Info: [id number] - FEOrder Info: [id number] - MARTIN Result Comment: The validity of the calculated GFR GFRAA in patients over 70 years has not been determined. Clinical correlation is essential. Performed By: #### L 500.4100, L100.0500, L500.4050, L503.6550, L503.6150 ####[facility] [address] [place], [place], [address] EST GFR - AA 48 mL/min Low >60 [facility] Comment on above: Order Comment: Order Date: 11/29/23Order Info: [id number] - CMPOrder Info: [id number] - LIPIDOrder Info: [id number] - FEOrder Info: [id number] - MARTIN Result Comment: Afri can Lithuanian GFR Calc Performed By: #### L 500.4100, L100.0500, L500.4050, L503.6550, L503.6150 ####[facility] [address] [place], [place], [address] GAP 7 Normal 5-15 [facility] Comment on above: Order Comment: Order Date: 11/29/23Order Info: 785- - CMPOrder Info: [id number] - LIPIDOrder Info: [id number] - FEOrder Info: [id number] - MARTIN Performed By: #### L 500.4100, L100.0500, L500.4050, L503.6550, L503.6150 ####[facility] [address] [place], [place], [address] GFR/1.73 sq M.predicted among non-blacks MDRD (S/P/Bld) [Vol rate/Area] 40 mL/min/{1.73_m2} Low >60 [facility] Comment on above: Order Comment: Order Date: 11/29/23Order Info: [id number] - CMPOrder Info: [id number] - LIPIDOrder Info: [id number] - FEOrder Info: [id number] - MARTIN Result Comment: Non- GFR Calc Performed By: #### L 500.4100, L100.0500, L500.4050, L503.6550, L503.6150 ####[facility] [address] [place], [address] Globulin (S) [Mass/Vol] 3.4 g/dL Normal 2.2-4.2 [facility] Comment on above: Order Comment: Order Date: 11/29/23Order Info: [id number] - CMPOrder Info: [id number] - LIPIDOrder Info: [id number] - FEOrder Info: [id number] - MARTIN Performed By: #### L 500.4100, L100.0500, L500.4050, L503.6550, L503.6150 ####[facility] [address] [place], [address] Glucose [Mass/Vol] 115 mg/dL High 74-106 [facility] Comment on above: Order Comment: Order Date: 11/29/23Order Info: [id number] - CMPOrder Info: [id number] - LIPIDOrder Info: [id number] - FEOrder Info: [id number] - MARTIN Result Comment: Fast ing Glucose result from 100 to 125 mg/dL suggests IMPAIRED HOMEOSTASIS per A.D.A. criteria. Performed By: #### L 500.4100, L100.0500, L500.4050, L503.6550, L503.6150 ####[facility] [address] [place], [address] Potassium [Moles/Vol] 4.3 mmol/L Normal 3.5-5.1 [facility] Comment on above: Order Comment: Order Date: 11/29/23Order Info: [id number] - CMPOrder Info: [id number] - LIPIDOrder Info: [id number] - FEOrder Info: [id number] - MARTIN Performed By: #### L 500.4100, L100.0500, L500.4050, L503.6550, L503.6150 ####[facility] [address] [place], [address] Sodium [Moles/Vol] 138 mmol/L Normal 136-145 [facility] Comment on above: Order Comment: Order Date: 11/29/23Order Info: [id number] - CMPOrder Info: [id number] - LIPIDOrder Info: [id number] - FEOrder Info: [id number] - MARTIN Performed By: #### L 500.4100, L100.0500, L500.4050, L503.6550, L503.6150 ####[facility] [address] [place], [address] T PROT 6.6 g/dL Normal 6.4-8.2 [facility] Comment on above: Order Comment: Order Date: 11/29/23Order Info: 785- - CMPOrder Info: - LIPIDOrder Info: [id number] - FEOrder Info: [id number] - MARTIN Performed By: #### L 500.4100, L100.0500, L500.4050, L503.6550, L503.6150 ####[facility] [address] [place], [place], [address] Urea nitrogen [Mass/Vol] 19 mg/dL High 7-18 [facility] Comment on above: Order Comment: Order Date: 11/29/23Order Info: [id number] - CMPOrder Info: - LIPIDOrder Info: [id number] - FEOrder Info: [id number] - MARTIN Performed By: #### L 500.4100, L100.0500, L500.4050, L503.6550, L503.6150 ####[facility] [address] [place], [address] Ferritinon 12-22-2023 Ferritin [Mass/Vol] 452 ng/mL High 26-388 [facility] Comment on above: Order Comment: Order Date: 11/29/23Order Info: [id number] - CMPOrder Info: [id number] - LIPIDOrder Info: [id number] - FEOrder Info: [id number] - MARTIN Performed By: #### L 500.4100, L100.0500, L500.4050, L503.6550, L503.6150 ####[facility] [address] [place], [address] Ironon 12-22-2023 Iron [Mass/Vol] 92 ug/dL Normal 65-175 [facility] Comment on above: Order Comment: Order Date: 11/29/23Order Info: [id number] - CMPOrder Info: [id number] - LIPIDOrder Info: [id number] - FEOrder Info: [id number] - MARTIN Performed By: #### L 500.4100, L100.0500, L500.4050, L503.6550, L503.6150 ####[facility] [address] [place], [place], [address] Lipid Profileon 12-22-2023 Cholesterol [Mass/Vol] 112 mg/dL Normal 200 [facility] Comment on above: Order Comment: Order Date: 11/29/23Order Info: 785- - CMPOrder Info: [id number] - LIPIDOrder Info: [id number] - FEOrder Info: [id number] - MARTIN Result Comment: <200 mg/dL Desirable 200-240 mg/dL Borderline >240 mg/dL High Risk Performed By: #### L 500.4100, L100.0500, L500.4050, L503.6550, L503.6150 ####[facility] [address] [place], [address] Cholesterol in HDL [Mass/Vol] 44 mg/dL Normal [facility] Comment on above: Order Comment: Order Date: 11/29/23Order Info: 07-1 - CMPOrder Info: [id number] - LIPIDOrder Info: [id number] - FEOrder Info: [id number] - MARTIN Result Comment: The drugs N-Acetylcysteine and Metamizole may falsely depress this assay. Reference Range HDL <40 mg/dL Low HDL Cholesterol HDL >or= 60 mg/dL High HDL Cholesterol Performed By: #### L 500.4100, L100.0500, L500.4050, L503.6550, L503.6150 ####[facility] [address] [place], [address] Cholesterol in LDL [Mass/Vol] 47 mg/dL Normal 0-130 [facility] Comment on above: Order Comment: Order Date: 11/29/23Order Info: [id number] - CMPOrder Info: [id number] - LIPIDOrder Info: [id number] - FEOrder Info: [id number] - MARTIN Performed By: #### L 500.4100, L100.0500, L500.4050, L503.6550, L503.6150 ####[facility] [address] [place], [address] Cholesterol in VLDL [Mass/Vol] 21 mg/dL Normal 5-40 [facility] Comment on above: Order Comment: Order Date: 11/29/23Order Info: 07-1 - CMPOrder Info: [id number] - LIPIDOrder Info: [id number] - FEOrder Info: [id number] - MARTIN Performed By: #### L 500.4100, L100.0500, L500.4050, L503.6550, L503.6150 ####[facility] [address] [place], [address] Triglyceride [Mass/Vol] 104 mg/dL Normal [facility] Comment on above: Order Comment: Order Date: 11/29/23Order Info: [id number] - CMPOrder Info: [id number] - LIPIDOrder Info: [id number] - FEOrder Info: [id number] - MARTIN Result Comment: The drugs N-Acetylcysteine and Metamizole may falsely depress this assay. Serum Triglycerides Reference Interval Normal <150 mg/dL Borderline high 150 - 199 mg/dL High 200 - 499 mg/dL Very High > or = 500 mg/dL Performed By: #### L 500.4100, L100.0500, L500.4050, L503.6550, L503.6150 ####[facility] [address] [place], [address] Oncology Visit Reporton 12-06 Oncology Visit Report [facility] [place] [address] OFFICE VISIT Date of Service: 12/22/23 1331 MR#: [id number] Acct: [id number] Name: YEFRI YANEZ Rep #: [id number] : 1965 From: Dangelo Botello MD Age/Sex: 58/M [place] [facility] [place] Status: Signed HPI Subjective Date of Service 12/22/23 Chief Complaint F/u for Metastatic Renal cancer. History of Present Illness 58-year-old man was diagnosed with right renal cancer stage IV with mets to right ribs and L4 in June 2021. Soft tissue/right chest wall mass biopsy from 07/01/2021 showed metastatic renal cell cancer,. He was diagnosed with renal cell carcinoma stage IV(cT2 cNx M1) he started therapy on a clinical trial with cabozantinib and nivolumab on 08/08/2021. Developed worsening hypotension so cabozantinib was held on 08/18/2021 and resumed on 09/11/2021. Nivolumab was held on 09/11/2021 due to pneumonitis and received prednisone. He was taken off clinical trial because of insurance change. He underwent palliative radiation therapy to lumbar spine in December 2021. He underwent right radical nephrectomy on 02/06/2022 at . Pathology showed right renal cell carcinoma, clear-cell type, 5.3 cm, grade 3, tumor invades renal vein and perinephric adipose tissue margins negative. Pathology showed pT3a pNx.his last CT scan on 03/26/2022 showed no evidence of progressive disease, right nephrectomy, right rib mass. Dr. Wilburn is no longer on his plan so he was referred here for further management. He remains on cabozantinib 20 mg daily. Comes for follow up after CT. Feeling well [facility] Medical History Abnormal chest x-ray Warfarin-induced coagulopathy Chronic a-fib Atrial fibrillation CKD (chronic kidney disease) CKD (chronic kidney disease), stage III Systolic CHF Tobacco use NIMCO on CPAP Metastatic renal cell carcinoma to bone Renal cell cancer Hyperlipidemia GERD (gastroesophageal reflux disease) COPD (chronic obstructive pulmonary disease) Atrial fibrillation Hypertension Surgical History History of cardiac cath ( 07/2021) History of cardioversion ( 09/2021) History of nephrectomy, right Family History Father Cancer Mother Heart disease Hypertension Myocardial infarction Social History household members: spouse and family Smoking Status: Current every day smoker tobacco type: cigars Electronic Cigarette Use: with nicotine alcohol intake: current alcohol intake frequency: a few times a month substance use type: does not use Intake Vital Signs 04/12/23 15:35 12/22/23 13:34 Height 5 ft 11 in 5 ft 11 in Weight: 119.89 kg BMI 36.8 BP 91/71 Blood Pressure Location Lt brachial Position Sitting Respiration 18 Pulse 76 Pulse Source Monitor Temp 98.1 F Temperature Source Temporal Artery Pulse Oximetry (%) 97 Oxygen Delivery Method room air Intake Is patient in pain?: No Allergies lisinopril Allergy (Severe, Verified 12/22/23 13:34) Angioedema guaifenesin (From Mucinex) Allergy (Intermediate, Verified 12/22/23 13:34) Bleeding aspirin (ASA) Allergy (Verified 12/22/23 13:34) Other mushroom (mushrooms) Allergy (Verified 12/22/23 13:34) Hives Penicillins Allergy (Verified 12/22/23 13:34) PT UNSURE OF REACTION shellfish derived Allergy (Verified 12/22/23 13:34) Hives Medications ???Medication ???Instructions ???Recorded ???Confirmed ???Type cyclobenzaprine 10 mg tablet 10 mg PO TID PRN Spasms 12/07/21 12/22/23 History albuterol sulfate 2.5 mg/3 mL 2.5 mg (3 mL) inhalation PRN PRN 06/29/22 12/22/23 Rx (0.083 %) solution for nebulization Shortness Of Breath #75 mL ferrous sulfate 325 mg (65 mg 325 mg PO BID #30 tabs 06/29/22 12/22/23 Rx iron) tablet fluticasone fur. 100 mcg-umeclid 1 inh inhalation DAILY #28 ea 06/29/22 12/22/23 Rx 62.5 mcg-vilant 25 mcg inhalat.powder (Trelegy Ellipta) nystatin 100,000 unit/mL oral 100,000 unit PO DAILY #60 mL 06/29/22 12/22/23 Rx suspension pantoprazole 40 mg tablet,delayed 40 mg PO DAILY gerd #30 tabs 06/29/22 12/22/23 Rx release potassium chloride 20 mEq 20 meq PO DAILY #30 tabs 06/29/22 12/22/23 Rx tablet,extended release rosuvastatin 40 mg tablet 40 mg PO DAILY cholesterol #30 tabs 06/29/22 12/22/23 Rx warfarin 10 mg tablet 8 mg (0.8 x 10 mg) PO DAILY Check 06/29/22 12/22/23 Rx with primary doctor #30 tabs bumetanide 2 mg tablet 2 mg PO BID #180 tabs 09/29/22 12/22/23 Rx losartan 50 mg tablet 50 mg PO DAILY #90 tabs 09/29/22 12/22/23 Rx spironolactone 25 mg tablet 25 mg PO DAILY #90 tabs 09/29/22 12/22/23 Rx carvedilol 12.5 mg (more content not included)... Normal [facility] CT Chest, Abd, Pelvis WO Con ton 10-07-2023 CT Chest, Abd, Pelvis WO Cont [facility] Imaging Services [address] [place], [place] [address] CT Chest, Abd, Pelvis WO Cont MR#: [id number] Acct: [id number] Name: YEFRI YANEZ Rep #: [id number] : 1965 M 58 From: Davy Scott PCP: Dr. Daksha Turner MD Status: REG CLI Study: CT Chest, Abd, Pelvis WO Cont Date of Exam: Exam# [id number] Ordering Dr: Dangelo Botello MD [id number] STUDY: CT CHEST, ABDOMEN T PELVIS WITHOUT CONTRAST REASON FOR EXAM: Male, 58 years old. MONITOR RENAL CA RADIATION DOSAGE (If Supplied By Facility): CTDIvol = ( 25.85 ) mGy, DLP = ( 2259.04 ) mGycm TECHNIQUE: Transaxial imaging was performed without the administration of intravenous contrast material. The protocol utilizes one or more of the following dose reduction techniques: automated exposure control, adjustment of mA and/or kV according to patient size,and/or use of iterative reconstruction technique. COMPARISON: Prior study dated: 03/04/2023 FINDINGS: CHEST Right middle lobe postradiation changes are again seen essentially unchanged adjacent to stable destructive mass or of the right sixth rib measuring about 7.2 x 3.8 cm unchanged. No new nodules are seen. There is no demonstrated pleural abnormality. Normal heart and pericardium. There are calcifications of the coronary arteries. Normal mediastinum. Normal hilar regions. Normal unenhanced pulmonary arteries. Normal aorta arch and descending thoracic aorta. No other lytic or osteoblastic osseous lesions are seen ABDOMEN Normal liver. Normal gallbladder and extrahepatic biliary system. Normal spleen. Normal pancreas. Normal bilateral adrenal glands. Status post right nephrectomy. Normal left kidney. Normal visualized stomach. Normal small intestine. No evidence of acute diverticulitis. The appendix is visualized and appears normal. Infrarenal 4.2 cm abdominal aortic aneurysm minimally larger than the previous exam. Normal inferior vena cava. Normal retroperitoneum. Normal abdominal wall. Negative lesion of L4 spinous process unchanged. No new osseous lesions are identified. PELVIS The bladder is not well distended. There is no pelvic fluid. There is no pelvic lymphadenopathy or mass lesion. CT/CT Chest, Abd, Pelvis WO Cont IMPRESSION: 1. No new metastatic disease.. 2. Stable soft tissue mass with destructive process of the left sixth rib unchanged. 3. 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 4. Infrarenal 4.2 cm abdominal aortic aneurysm unchanged or slightly larger than the previous exam. 5. Status post right nephrectomy. Electronically Signed: Davy Linn MD at 10:47 EDT , CC: Dr. Daksha Turner MD; Dr. Dangelo Botello MD Return Checker: Signed Normal [facility] Basophil percentageOrdered B y: Jose Ramon Johnny on 05-27-2023 Bilirubin [Mass/Vol] 0.60 mg/dL 0.20-1.00 [facility] Comment on above: For patients on eltr ombopag therapy, use of Dimension [place] TBIL is not recommended. Chloride [Moles/Vol] 106 mmol/L 98-107 [facility] Glucose [Mass/Vol] 106 mg/dL 74-106 [facility] Comment on above: Fasting Glucose resu lt from 100 to 125 mg/dL suggests IMPAIRED HOMEOSTASIS per A.D.A. criteria. Potassium [Moles/Vol] 3.8 mmol/L 3.5-5.1 [facility] Comment on above: Slight Hemolysis, Re sult may be falsely increased. Protein [Mass/Vol] 6.7 g/dL 6.4-8.2 [facility] Sodium [Moles/Vol] 138 mmol/L 136-145 [facility] Testosterone [Mass/Vol] 173.63 ng/dL [facility] Comment on above: CENTRAL 90% REFERENC E RANGES MALE AGE <50 197.44 - 669.58 ng/dL MALE AGE > or = 50 187.72 - 684.19 ng/dL FEMALE AGE <50 8.38 - 35.01 ng/dL FEMALE AGE > or = 50 <7.00 - 35.92 ng/dL Effective as of 10/01/20 Iron measurement (mass/mass) Ordered By: Jose Ramon Turner on 05-27-2023 Iron (Unsp spec) [Mass/Mass] 115 ug/dL 65-175 [facility] Comment on above: Slight Hemolysis, Re sult may be falsely increased. Laboratory - Chemistry and C hemistry - challengeOrdered By: Jose Ramon Turner on 05-27-2023 Albumin/Globulin [Mass ratio] 0.9 {ratio} 0.9-2.4 [facility] ALP [Catalytic activity/Vol] 73 U/L 45-117 [facility] ALT [Catalytic activity/Vol] 54 U/L 16-61 [facility] CO2 [Moles/Vol] 24.0 mmol/L 21.0-32.0 [facility] Cobalamin (Vitamin B12) [Mass/Vol] 241 pg/mL 211-911 [facility] Ferritin [Mass/Vol] 515 ng/mL 26-388 [facility] Globulin (S) [Mass/Vol] 3.6 g/dL 2.2-4.2 [facility] Urea nitrogen/Creatinine [Mass ratio] 10.7 mg/mg 10-20 [facility] No Panel InformationOrdered By: Jose Ramon Turner on 05-27-2023 Estimated GFR (MDRD) Amer 54 mL/min >60 [facility] Comment on above: GFR Calc Estimated GFR (MDRD) Non-Af Amer 44 mL/min >60 [facility] Comment on above: Non- GFR Calc Serum or plasma calcium cory urement (mass/volume)Ordered By: Jose Ramon Turner on 05-27-2023 Calcium [Mass/Vol] 8.8 mg/dL 8.5-10.1 [facility] Serum or plasma creatinine m easurement (mass/volume)Ordered By: Jose Ramon Turner on 05-27-2023 Creatinine [Mass/Vol] 1.69 mg/dL 0.70-1.30 [facility] Comment on above: The validity of the calculated GFR & GFRAA in patients over 70 years has not been determined. Clinical correlation is essential. Serum or plasma thyroid stim ulating hormone (TSH) measurement (units/volume)Ordered By: Jose Ramon Turner on 05-27-2023 TSH Qn 3.25 uIU/mL 0.358-3.74 [facility] Serum or plasma urea nitroge n measurement (mass/volume)Ordered By: Jose Ramon Turner on 05-27-2023 Urea nitrogen [Mass/Vol] 18 mg/dL 7-18 [facility] Thin prep Papanicolaou smear with manual screeningOrdered By: Jose Ramon Turner on 05-27-2023 Thin prep Papanicolaou smear with manual screening 3.1 g/dL 3.2-5.0 [facility] Thin prep Papanicolaou smear with manual screening 40 U/L 15-37 [facility] Comment on above: Slight Hemolysis, Re sult may be falsely increased. Thin prep Papanicolaou smear with manual screening 8 07-20 [facility] Clostridioides difficile nuc leic acid assay by PCROrdered By: Jose Ramon Turner on 05-21-2023 C. difficile DNA SANDOVAL+probe Ql (Unsp spec) [facility] Lower GI hemoglobin IA Ql (S tl)Ordered By: Jose Ramon Turner on 05-21-2023 Stool Occult Blood (STEVENSON) Positive [facility] Ova and parasitesOrdered By: Jose Ramon Turner on 05-21-2023 Ova and parasites identified LM Nom (Unsp spec) [facility] Stool enteric pathogen panel by probe and target amplification methodOrdered By: Jose Ramon Turner on 05-21-2023 Gastrointestinal pathogens panel SANDOVAL+probe (Stl) [facility] Stool pancreatic elastase me asurement (mass/mass)Ordered By: Jose Ramon Turner on 05-21-2023 Elastase.pancreatic (Stl) [Mass/Mass] See comment [facility] Comment on above: TEST RESULTS LIMITSP ancreatic Elastase, Fecal 218 ug Elast./g >200 Severe Pancreatic Insufficiency: <100 Moderate Pancreatic Insufficiency: 100 - 200 Normal: >200 TESTING PERFORMED AT [facility]. ORIGINAL REPORT ON FILE IN LAB CONTAINS ADDITIONAL TEST SITE INFORMATION. Basophil percentageOrdered B y: Jose Ramon Turner on 05-20-2023 Basophil percentage 2.0 mg/dL 2.5-4.9 [facility] Chloride [Moles/Vol] 104 mmol/L 98-[address] [facility] Glucose [Mass/Vol] 113 mg/dL 74-[address] [facility] Comment on above: Fasting Glucose resu lt from 100 to 125 mg/dL suggests IMPAIRED HOMEOSTASIS per A.D.A. criteria. Potassium [Moles/Vol] 3.8 mmol/L 3.5-5.1 [facility] Sodium [Moles/Vol] 137 mmol/L 136-145 [facility] Laboratory - Chemistry and C hemistry - challengeOrdered By: Jose Ramon Turner on 05-20-2023 CO2 [Moles/Vol] 24.0 mmol/L 21.0-32.0 [facility] Urea nitrogen/Creatinine [Mass ratio] 11.1 mg/mg 10-20 [facility] No Panel InformationOrdered By: Jose Ramon Turner on 05-20-2023 Estimated GFR (MDRD) Amer 47 mL/min >60 [facility] Comment on above: GFR Calc Estimated GFR (MDRD) Non-Af Amer 39 mL/min >60 [facility] Comment on above: Non- GFR Calc Serum or plasma calcium cory urement (mass/volume)Ordered By: Jose Ramon Turner on 05-20-2023 Calcium [Mass/Vol] 8.6 mg/dL 8.5-10.1 [facility] Serum or plasma creatinine m easurement (mass/volume)Ordered By: Jose Ramon Turner on 05-20-2023 Creatinine [Mass/Vol] 1.89 mg/dL 0.70-1.30 [facility] Comment on above: The validity of the calculated GFR & GFRAA in patients over 70 years has not been determined. Clinical correlation is essential. Serum or plasma urea nitroge n measurement (mass/volume)Ordered By: Jose Ramon Turner on 05-20-2023 Urea nitrogen [Mass/Vol] 21 mg/dL 7-18 [facility] Thin prep Papanicolaou smear with manual screeningOrdered By: Jose Ramon Turner on 05-20-2023 Thin prep Papanicolaou smear with manual screening 3.2 g/dL 3.2-5.0 [facility] Absolute lymphocyte countOrd ered By: Dangelo Botello on 04-12-2023 Lymphocytes Auto (Unsp spec) [#/Vol] 1.08 10*3/uL 0.83-4.51 [facility] Automated lymphocyte count a s percentage of total leukocytesOrdered By: Dangelo Botello on 04-12-2023 Lymphocytes/100 WBC Auto (Unsp spec) 18.6 % 19-41 [facility] Basophil percentageOrdered B y: Dangelo Ayan on 04-12-2023 Basophils/100 WBC (Bld) 0.3 % 0-1 [facility] Bilirubin [Mass/Vol] 0.50 mg/dL 0.20-1.00 [facility] Comment on above: For patients on eltr ombopag therapy, use of Dimension [place] TBIL is not recommended. Chloride [Moles/Vol] 106 mmol/L 98-107 [facility] Eosinophils/100 WBC (Bld) 0.5 % 0-5 [facility] Glucose [Mass/Vol] 121 mg/dL 74-106 [facility] Comment on above: Fasting Glucose resu lt from 100 to 125 mg/dL suggests IMPAIRED HOMEOSTASIS per A.D.A. criteria. Hemoglobin (Bld) [Mass/Vol] 13.9 g/dL 13.0-16.5 [facility] LDH [Catalytic activity/Vol] 391 U/L 87-241 [facility] Comment on above: Slight Hemolysis, Re sult may be falsely increased. Monocytes/100 WBC (Bld) 6.4 % 0-10 [facility] Neutrophils (Bld) [#/Vol] 4.3 10*3/uL 2.0-7.7 [facility] Neutrophils/100 WBC (Bld) 74.0 % 47-70 [facility] Potassium [Moles/Vol] 3.6 mmol/L 3.5-5.1 [facility] Comment on above: Slight Hemolysis, Re sult may be falsely increased. Protein [Mass/Vol] 7.2 g/dL 6.4-8.2 [facility] Sodium [Moles/Vol] 141 mmol/L 136-145 [facility] WBC (Bld) [#/Vol] 5.8 10*3/uL 4.4-11.0 [facility] Blood manual differential co mment interpretation (narrative result)Ordered By: Dangelo Botello on 04-12-2023 Manual differential comment Piyush (Bld) [Interp] SCANNED [facility] Comment on above: 1+ ANISOCYTOSIS Determination of erythrocyte mean corpuscular volume (MCV)Ordered By: Dangelo Botello on 04-12-2023 MCV (RBC) [Entitic vol] 100.7 fL 80-94 [facility] Erythrocyte distribution wid th ratioOrdered By: Dangelo Botello on 04-12-2023 Erythrocyte distribution width (RBC) [Ratio] 17.9 % 11.6-14.6 [facility] Erythrocyte distribution wid th standard deviationOrdered By: Dangelo Botello on 04-12-2023 Erythrocyte distribution width (RBC) [Entitic vol] 66.3 fL 35.1-43.9 [facility] Hematocrit Auto (Bld) [Volum e fraction]Ordered By: Dangelo Botello on 04-12-2023 Hematocrit (Bld) [Volume fraction] 41.9 % 40-54 [facility] Immature granulocytes/100 WB C Auto (Bld)Ordered By: Dangelo Botello on 04-12-2023 Immature granulocytes/100 WBC (Bld) 0.200 % 0.0-0.9 [facility] Comment on above: IG% - Immature Granu locytes (promyelocytes, myelocytes and metamyelocytes) > 1% indicates that a LEFT SHIFT is Present. Laboratory - Chemistry and C hemistry - challengeOrdered By: Dangelo Botello on 04-12-2023 Albumin/Globulin [Mass ratio] 0.8 {ratio} 0.9-2.4 [facility] ALP [Catalytic activity/Vol] 61 U/L 45-117 [facility] ALT [Catalytic activity/Vol] 47 U/L 16-61 [facility] CO2 [Moles/Vol] 28.0 mmol/L 21.0-32.0 [facility] Globulin (S) [Mass/Vol] 3.9 g/dL 2.2-4.2 [facility] Urea nitrogen/Creatinine [Mass ratio] 10.8 mg/mg 10-20 [facility] Laboratory - Hematology and Cell countsOrdered By: Dangelo Botello on 04-12-2023 MCH (RBC) [Entitic mass] 33.4 pg 27.0-32.0 [facility] MCHC (RBC) [Mass/Vol] 33.2 g/dL 32-36 [facility] Nucleated RBC/100 WBC (Bld) [Ratio] 0.3 % 0-5 [facility] Platelets (Bld) [#/Vol] 275 10*3/uL 150-450 [facility] No Panel InformationOrdered By: Dangelo Botello on 04-12-2023 Estimated Creatinine Clearance Calc 57.07 ml/min [facility] Estimated GFR (MDRD) Amer 48 mL/min >60 [facility] Comment on above: GFR Calc Estimated GFR (MDRD) Non-Af Amer 40 mL/min >60 [facility] Comment on above: Non- GFR Calc Platelet mean volume Kevin-Ec ker (Bld) [Entitic vol]Ordered By: Dangelo Botello on 04-12-2023 Platelet mean volume (Bld) [Entitic vol] 10.4 fL 6.2-12.0 [facility] RBC Auto (Bld) [#/Vol]Ordere d By: Dangelo Botello on 04-12-2023 RBC (Bld) [#/Vol] 4.16 10*6/uL 4.6-6.2 [facility] Serum or plasma calcium cory urement (mass/volume)Ordered By: Dangelo Botello on 04-12-2023 Calcium [Mass/Vol] 8.8 mg/dL 8.5-10.1 [facility] Serum or plasma creatinine m easurement (mass/volume)Ordered By: Dangelo Botello on 04-12-2023 Creatinine [Mass/Vol] 1.86 mg/dL 0.70-1.30 [facility] Comment on above: The validity of the calculated GFR & GFRAA in patients over 70 years has not been determined. Clinical correlation is essential. Serum or plasma urea nitroge n measurement (mass/volume)Ordered By: Dangelo Botello on 04-12-2023 Urea nitrogen [Mass/Vol] 20 mg/dL 7-18 [facility] Thin prep Papanicolaou smear with manual screeningOrdered By: Dangelo Botello on 04-12-2023 Thin prep Papanicolaou smear with manual screening 3.3 g/dL 3.2-5.0 [facility] Thin prep Papanicolaou smear with manual screening 34 U/L 15-37 [facility] Comment on above: Slight Hemolysis, Re sult may be falsely increased. Thin prep Papanicolaou smear with manual screening 7 5-15 [facility] Basophil percentageOrdered B y: Isidra Chiu on 02-12-2023 Basophil percentage 0-5 SEEN /hpf 0-5 [facility] Bilirubin Test strip Ql (U)O rdered By: Isidra Chiu on 02-12-2023 Bilirubin Ql (U) Negative Negative [facility] Ketones Test strip Ql (U)Ord ered By: Isidra Chiu on 02-12-2023 Ketones Ql (U) Negative Negative [facility] Mucus LM Ql (Urine sed)Order ed By: Isidra Chiu on 02-12-2023 Mucus Ql (Urine sed) 0 SEEN /hpf [facility] Nitrite Test strip Ql (U)Ord ered By: Isidra Chiu on 02-12-2023 Nitrite Ql (U) Negative Negative [facility] Protein Test strip Ql (U)Ord ered By: Isidra Chiu on 02-12-2023 Protein Ql (U) 15 mg/dl Negative [facility] Squamous epithelial cells de tection in urine sediment by light microscopyOrdered By: Isidra Chiu on 02-12-2023 Epithelial cells.squamous LM Ql (Urine sed) 0 SEEN /hpf 0-5 [facility] Urine blood detectionOrdered By: Isidra Chiu on 02-12-2023 RBC Ql (U) Negative Negative [facility] RBC Ql (U) 0 SEEN /hpf 0-5 [facility] Urine clarityOrdered By: Bruce Chiu on 02-12-2023 Clarity (U) Clear Clear [facility] Urine color determinationOrd ered By: Isidra Chiu on 02-12-2023 Color (U) Yellow Yellow [facility] Urine creatinine measurement (mass/volume)Ordered By: Isidra Chiu on 02-12-2023 Creatinine (U) [Mass/Vol] 194.00 mg/dL NO RANGE EST. [facility] Urine glucose detectionOrder ed By: Isidra Chiu on 02-12-2023 Glucose Ql (U) Normal mg/dl Normal [facility] Urine leukocyte esterase det ection by dipstickOrdered By: Isidra Chiu on 02-12-2023 Leukocyte esterase Test strip Ql (U) 25 /ul Negative [facility] Urine pHOrdered By: Lynette Chiu on 02-12-2023 pH (U) 5.0 [pH] 5.0 - 8.0 [facility] Urine protein measurement (m ass/volume)Ordered By: Isidra Chiu on 02-12-2023 Protein (U) [Mass/Vol] 20.7 mg/dL 0.0-11.8 [facility] Urine protein/creatinine mas s ratioOrdered By: Isidra Chiu on 02-12-2023 Protein/Creatinine (U) [Mass ratio] 107 mg/g CRE 0-200 [facility] Urine sediment bacteria coun t by microscopy (number/high power field)Ordered By: Isidra Chiu on 02-12-2023 Bacteria LM.HPF (Urine sed) [#/Area] 0 /[HPF] None Seen [facility] Urine specific gravity measu rementOrdered By: Isidra Chiu on 02-12-2023 Specific gravity (U) [Rel density] 1.020 1.002-1.03 0 [facility] Urobilinogen Auto test strip Ql (U)Ordered By: Isidra Chiu on 02-12-2023 Urobilinogen Ql (U) Normal mg/dl Normal [facility] Absolute lymphocyte countOrd ered By: Carol Chiu on 12-17-2022 Lymphocytes Auto (Unsp spec) [#/Vol] 0.88 10*3/uL 0.83-4.51 [facility] Basophil percentageOrdered B y: Carol Chiu on 12-17-2022 Basophils/100 WBC (Bld) 0.4 % 0-1 [facility] Chloride [Moles/Vol] 107 mmol/L 98-107 [facility] Eosinophils/100 WBC (Bld) 1.0 % 0-5 [facility] Glucose [Mass/Vol] 110 mg/dL 74-106 [facility] Comment on above: Fasting Glucose resu lt from 100 to 125 mg/dL suggests IMPAIRED HOMEOSTASIS per A.D.A. criteria. Neutrophils (Bld) [#/Vol] 3.7 10*3/uL 2.0-7.7 [facility] Neutrophils/100 WBC (Bld) 71.5 % 47-70 [facility] Potassium [Moles/Vol] 3.5 mmol/L 3.5-5.1 [facility] Sodium [Moles/Vol] 138 mmol/L 136-145 [facility] WBC (Bld) [#/Vol] 5.2 10*3/uL 4.4-11.0 [facility] Blood erythrocytes count (nu mber/volume)Ordered By: Carol Chiu on 12-17-2022 RBC (Bld) [#/Vol] 4.04 10*6/uL 4.6-6.2 [facility] Blood hemoglobin measurement (mass/volume)Ordered By: Carol Chiu on 12-17-2022 Hemoglobin (Bld) [Mass/Vol] 13.9 g/dL 13.0-16.5 [facility] Blood lymphocytes/100 leukoc ytesOrdered By: Carol Chiu on 12-17-2022 Lymphocytes/100 WBC (Bld) 16.9 % 19-41 [facility] Blood monocytes/100 leukocyt esOrdered By: Carol Chiu on 12-17-2022 Monocytes/100 WBC (Bld) 9.8 % 0-10 [facility] Blood platelet mean volumeOr dered By: Carol Chiu on 12-17-2022 Platelet mean volume (Bld) [Entitic vol] 11.2 fL 6.2-12.0 [facility] Determination of erythrocyte mean corpuscular volume (MCV)Ordered By: Carol Chiu on 12-17-2022 MCV (RBC) [Entitic vol] 102.0 fL 80-94 [facility] Hematocrit Auto (Bld) [Volum e fraction]Ordered By: Carol Chiu on 12-17-2022 Hematocrit (Bld) [Volume fraction] 41.2 % 40-54 [facility] INR in Blood by Coagulation assayOrdered By: Marquise Padilla on 12-17-2022 INR Coag (Bld) [Relative time] 2.2 {INR} [facility] Laboratory - Chemistry and C hemistry - challengeOrdered By: Carol Chiu on 12-17-2022 CO2 [Moles/Vol] 26.0 mmol/L 21.0-32.0 [facility] Urea nitrogen/Creatinine [Mass ratio] 11.5 mg/mg 10-20 [facility] Laboratory - CoagulationOrde red By: Marquise Padilla on 12-17-2022 PT Coag (PPP) [Time] 24.6 s 11.7-14.9 [facility] Laboratory - Hematology and Cell countsOrdered By: Carol Chiu on 12-17-2022 Erythrocyte distribution width (RBC) [Entitic vol] 63.6 fL 35.1-43.9 [facility] Erythrocyte distribution width (RBC) [Ratio] 16.9 % 11.6-14.6 [facility] Immature granulocytes/100 WBC (Bld) 0.400 % 0.0-0.9 [facility] Comment on above: IG% - Immature Granu locytes (promyelocytes, myelocytes and metamyelocytes) > 1% indicates that a LEFT SHIFT is Present. MCH (RBC) [Entitic mass] 34.4 pg 27.0-32.0 [facility] Nucleated RBC/100 WBC (Bld) [Ratio] 0.8 % 0-5 [facility] MCHC Auto (RBC) [Mass/Vol]Or dered By: Carol Chiu on 12-17-2022 MCHC (RBC) [Mass/Vol] 33.7 g/dL 32-36 [facility] No Panel InformationOrdered By: Carol Chiu on 12-17-2022 Estimated Creatinine Clearance Calc 51.97 ml/min [facility] Estimated GFR (MDRD) Amer 55 mL/min >60 [facility] Comment on above: GFR Calc Estimated GFR (MDRD) Non-Af Amer 46 mL/min >60 [facility] Comment on above: Non- GFR Calc Platelets bldOrdered By: Lina Chiu on 12-17-2022 Platelets (Bld) [#/Vol] 193 10*3/uL 150-450 [facility] Serum or plasma calcium cory urement (mass/volume)Ordered By: Carol Chiu on 12-17-2022 Calcium [Mass/Vol] 9.3 mg/dL 8.5-10.1 [facility] Serum or plasma creatinine m easurement (mass/volume)Ordered By: Carol Chiu on 12-17-2022 Creatinine [Mass/Vol] 1.65 mg/dL 0.70-1.30 [facility] Comment on above: The validity of the calculated GFR & GFRAA in patients over 70 years has not been determined. Clinical correlation is essential. Serum or plasma urea nitroge n measurement (mass/volume)Ordered By: Carol Chiu on 12-17-2022 Urea nitrogen [Mass/Vol] 19 mg/dL 7-18 [facility] Thin prep Papanicolaou smear with manual screeningOrdered By: Carol Chiu on 12-17-2022 Thin prep Papanicolaou smear with manual screening 5 5-15 [facility] Blood manual differential co mment interpretation (narrative result)Ordered By: Marquise Padilla on 12-16-2022 Manual differential comment Piyush (Bld) [Interp] SCANNED [facility] Laboratory - Hematology and Cell countsOrdered By: Marquise Padilla on 12-16-2022 Anisocytosis Ql (Bld) 2+ [facility] Macrocytes detectionOrdered By: Marquise Padilla on 12-16-2022 Macrocytes Ql (Bld) 2+ [facility] - Chemistry and C hemistry - challengeOrdered By: Speedy Bass on 12-15-2022 Natriuretic peptide B (Bld) [Mass/Vol] 574.1 pg/mL 0-100 [facility] No Panel InformationOrdered By: Marquise Padilla on 12-15-2022 Streptococcus pneumoniae Antigen (M [facility] Streptococcus pneumoniae Antigen ([facility] No Panel InformationOrdered By: Speedy Bass on 12-15-2022 Troponin I High Sensitivity 40 pg/mL 3.0-78.0 [facility] Comment on above: Please Note: [place] Units and Gender Specific Reference Ranges. For more information see Policy Stat Procedure [place] High Sensitivity Troponin (TNIH) and attachments. Urine Legionella pneumophila antigen detectionOrdered By: Marquise Padilla on 12-15-2022 L. pneumophila Ag Ql (U) [facility] L. pneumophila Ag Ql (U) [facility] Basophil percentageOrdered B y: Jose Ramon Turner on 11-12-2022 Chloride [Moles/Vol] 106 mmol/L 98-107 [facility] Glucose [Mass/Vol] 89 mg/dL 74-106 [facility] Potassium [Moles/Vol] 3.9 mmol/L 3.5-5.1 [facility] Comment on above: Slight Hemolysis, Re sult may be falsely increased. Sodium [Moles/Vol] 138 mmol/L 136-145 [facility] WBC (Bld) [#/Vol] 5.4 10*3/uL 4.4-11.0 [facility] Blood erythrocytes count (nu mber/volume)Ordered By: Jose Ramon Turner on 11-12-2022 RBC (Bld) [#/Vol] 4.08 10*6/uL 4.6-6.2 [facility] Blood hemoglobin measurement (mass/volume)Ordered By: Jose Ramon Turner on 11-12-2022 Hemoglobin (Bld) [Mass/Vol] 14.2 g/dL 13.0-16.5 [facility] Blood manual differential co mment interpretation (narrative result)Ordered By: Jose Ramon Turner on 11-12-2022 Manual differential comment Piyush (Bld) [Interp] SCANNED [facility] Comment on above: 2+ ANISOCYTOSIS2+ [facility]OCYTOS[facility] Blood platelet mean volumeOr dered By: Jose Ramon Turner on 11-12-2022 Platelet mean volume (Bld) [Entitic vol] 10.9 fL 6.2-12.0 [facility] Determination of erythrocyte mean corpuscular volume (MCV)Ordered By: Jose Ramon Turner on 11-12-2022 MCV (RBC) [Entitic vol] 105.1 fL 80-94 [facility] Hematocrit Auto (Bld) [Volum e fraction]Ordered By: Jose Ramon Turner on 11-12-2022 Hematocrit (Bld) [Volume fraction] 42.9 % 40-54 [facility] - Chemistry and C hemistry - challengeOrdered By: Jose Ramon Turner on 11-12-2022 Natriuretic peptide B (Bld) [Mass/Vol] 255.5 pg/mL 0-100 [facility] CO2 [Moles/Vol] 27.0 mmol/L 21.0-32.0 [facility] Urea nitrogen/Creatinine [Mass ratio] 9.8 mg/mg 10-20 [facility] - Hematology and Cell countsOrdered By: Jose Ramon Turner on 11-12-2022 Erythrocyte distribution width (RBC) [Entitic vol] 69.2 fL 35.1-43.9 [facility] Erythrocyte distribution width (RBC) [Ratio] 17.9 % 11.6-14.6 [facility] MCH (RBC) [Entitic mass] 34.8 pg 27.0-32.0 [facility] MCHC Auto (RBC) [Mass/Vol]Or dered By: Jose Ramon Turner on 11-12-2022 MCHC (RBC) [Mass/Vol] 33.1 g/dL 32-36 [facility] No Panel InformationOrdered By: Jose Ramon Turner on 11-12-2022 Estimated GFR (MDRD) Amer 52 mL/min >60 [facility] Comment on above: GFR Calc Estimated GFR (MDRD) Non-Af Amer 43 mL/min >60 [facility] Comment on above: Non- GFR Calc Platelets bldOrdered By: Bruce Turner on 11-12-2022 Platelets (Bld) [#/Vol] 242 10*3/uL 150-450 [facility] Serum or plasma calcium cory urement (mass/volume)Ordered By: Jose Ramon Turner on 11-12-2022 Calcium [Mass/Vol] 9.0 mg/dL 8.5-10.1 [facility] Serum or plasma creatinine m easurement (mass/volume)Ordered By: Jose Ramon Turner on 11-12-2022 Creatinine [Mass/Vol] 1.73 mg/dL 0.70-1.30 [facility] Comment on above: The validity of the calculated GFR & GFRAA in patients over 70 years has not been determined. Clinical correlation is essential. Serum or plasma urea nitroge n measurement (mass/volume)Ordered By: Jose Ramon Turner on 11-12-2022 Urea nitrogen [Mass/Vol] 17 mg/dL 7-18 [facility] Thin prep Papanicolaou smear with manual screeningOrdered By: Jose Ramon Turner on 11-12-2022 Thin prep Papanicolaou smear with manual screening 5 5-15 [facility] Absolute lymphocyte countOrd ered By: Dangelo Botello on 09-03-2022 Lymphocytes Auto (Unsp spec) [#/Vol] 0.99 10*3/uL 0.83-4.51 [facility] Basophil percentageOrdered B y: Dangelo Botello on 09-03-2022 Basophils/100 WBC (Bld) 0.3 % 0-1 [facility] Bilirubin [Mass/Vol] 0.60 mg/dL 0.20-1.00 [facility] Comment on above: For patients on eltr ombopag therapy, use of Dimension [place] TBIL is not recommended. Chloride [Moles/Vol] 102 mmol/L 98-107 [facility] Eosinophils/100 WBC (Bld) 0.2 % 0-5 [facility] Glucose [Mass/Vol] 110 mg/dL 74-106 [facility] Comment on above: Fasting Glucose resu lt from 100 to 125 mg/dL suggests IMPAIRED HOMEOSTASIS per A.D.A. criteria. LDH [Catalytic activity/Vol] 288 U/L 87-241 [facility] Neutrophils (Bld) [#/Vol] 5.0 10*3/uL 2.0-7.7 [facility] Neutrophils/100 WBC (Bld) 77.5 % 47-70 [facility] Potassium [Moles/Vol] 3.6 mmol/L 3.5-5.1 [facility] Protein [Mass/Vol] 7.2 g/dL 6.4-8.2 [facility] Sodium [Moles/Vol] 136 mmol/L 136-145 [facility] WBC (Bld) [#/Vol] 6.4 10*3/uL 4.4-11.0 [facility] Blood erythrocytes count (nu mber/volume)Ordered By: Dangelo Botello on 09-03-2022 RBC (Bld) [#/Vol] 4.37 10*6/uL 4.6-6.2 [facility] Blood hemoglobin measurement (mass/volume)Ordered By: Dangelo Botello on 09-03-2022 Hemoglobin (Bld) [Mass/Vol] 15.2 g/dL 13.0-16.5 [facility] Blood lymphocytes/100 leukoc ytesOrdered By: Dangelo Botello on 09-03-2022 Lymphocytes/100 WBC (Bld) 15.4 % 19-41 [facility] Blood monocytes/100 leukocyt esOrdered By: Dangelo Botello on 09-03-2022 Monocytes/100 WBC (Bld) 6.1 % 0-10 [facility] Blood platelet mean volumeOr dered By: Dangelo Botello on 09-03-2022 Platelet mean volume (Bld) [Entitic vol] 10.0 fL 6.2-12.0 [facility] Determination of erythrocyte mean corpuscular volume (MCV)Ordered By: Dangelo Botello on 09-03-2022 MCV (RBC) [Entitic vol] 100.7 fL 80-94 [facility] Hematocrit Auto (Bld) [Volum e fraction]Ordered By: Dangelo Botello on 09-03-2022 Hematocrit (Bld) [Volume fraction] 44.0 % 40-54 [facility] - Chemistry and C hemistry - challengeOrdered By: Dangelo Botello on 09-03-2022 ALP [Catalytic activity/Vol] 76 U/L 45-117 [facility] ALT [Catalytic activity/Vol] 52 U/L 16-61 [facility] CO2 [Moles/Vol] 28.0 mmol/L 21.0-32.0 [facility] Globulin (S) [Mass/Vol] 4.1 g/dL 2.2-4.2 [facility] Urea nitrogen/Creatinine [Mass ratio] 9.5 mg/mg 10-20 [facility] - Hematology and Cell countsOrdered By: Dangelo Botello on 09-03-2022 Anisocytosis Ql (Bld) 1+ [facility] Erythrocyte distribution width (RBC) [Entitic vol] 68.4 fL 35.1-43.9 [facility] Erythrocyte distribution width (RBC) [Ratio] 18.4 % 11.6-14.6 [facility] Immature granulocytes/100 WBC (Bld) 0.500 % 0.0-0.9 [facility] Comment on above: IG% - Immature Granu locytes (promyelocytes, myelocytes and metamyelocytes) > 1% indicates that a LEFT SHIFT is Present. MCH (RBC) [Entitic mass] 34.8 pg 27.0-32.0 [facility] Nucleated RBC/100 WBC (Bld) [Ratio] 0.5 % 0-5 [facility] MCHC Auto (RBC) [Mass/Vol]Or dered By: Dangelo Botello on 09-03-2022 MCHC (RBC) [Mass/Vol] 34.5 g/dL 32-36 [facility] No Panel InformationOrdered By: Dangelo Botello on 09-03-2022 Estimated Creatinine Clearance Calc 47.91 ml/min [facility] Estimated GFR (MDRD) Amer 50 mL/min >60 [facility] Comment on above: GFR Calc Estimated GFR (MDRD) Non-Af Amer 42 mL/min >60 [facility] Comment on above: Non- GFR Calc Platelets bldOrdered By: Jose Botello on 09-03-2022 Platelets (Bld) [#/Vol] 241 10*3/uL 150-450 [facility] Serum or plasma albumin cory urement (mass/volume)Ordered By: Dangelo Botello on 09-03-2022 Albumin [Mass/Vol] 3.1 g/dL 3.2-5.0 [facility] Serum or plasma albumin/glob ulin mass ratioOrdered By: Dangelo Botello on 09-03-2022 Albumin/Globulin [Mass ratio] 0.8 {ratio} 0.9-2.4 [facility] Serum or plasma calcium cory urement (mass/volume)Ordered By: Dangelo Botello on 09-03-2022 Calcium [Mass/Vol] 9.2 mg/dL 8.5-10.1 [facility] Serum or plasma creatinine m easurement (mass/volume)Ordered By: Dangelo Botello on 09-03-2022 Creatinine [Mass/Vol] 1.79 mg/dL 0.70-1.30 [facility] Comment on above: The validity of the calculated GFR & GFRAA in patients over 70 years has not been determined. Clinical correlation is essential. Serum or plasma urea nitroge n measurement (mass/volume)Ordered By: Dangelo Botello on 09-03-2022 Urea nitrogen [Mass/Vol] 17 mg/dL 7-18 [facility] Thin prep Papanicolaou smear with manual screeningOrdered By: Dangelo Botello on 09-03-2022 Thin prep Papanicolaou smear with manual screening 36 U/L 15-37 [facility] Thin prep Papanicolaou smear with manual screening 6 5-15 [facility] Absolute lymphocyte countOrd ered By: Dr. Wei on 06-29-2022 Lymphocytes Auto (Unsp spec) [#/Vol] 0.27 10*3/uL 0.83-4.51 [facility] Basophil percentageOrdered B y: Dr. Wei on 06-29-2022 Basophils/100 WBC (Bld) 0.1 % 0-1 [facility] Chloride [Moles/Vol] 107 mmol/L 98-107 [facility] Eosinophils/100 WBC (Bld) 0.0 % 0-5 [facility] Glucose [Mass/Vol] 210 mg/dL 74-106 [facility] Comment on above: Glucose result great er than or equal to 200 mg/dLsuggests DIABETES MELLITUS per A.D.A. criteria. Neutrophils (Bld) [#/Vol] 8.6 10*3/uL 2.0-7.7 [facility] Neutrophils/100 WBC (Bld) 91.8 % 47-70 [facility] Potassium [Moles/Vol] 3.9 mmol/L 3.5-5.1 [facility] Sodium [Moles/Vol] 137 mmol/L 136-145 [facility] WBC (Bld) [#/Vol] 9.3 10*3/uL 4.4-11.0 [facility] Basophil percentageOrdered B y: Dr. Lu on 06-29-2022 Cholesterol [Mass/Vol] 126 mg/dL <200 [facility] Comment on above: <200 mg/dL Desirable 200-240 mg/dL Borderline >240 mg/dL High Risk Triglyceride [Mass/Vol] 60 mg/dL <199 [facility] Comment on above: The drugs N-Acetylcy steine and Metamizole may falsely depress this assay.Serum Triglycerides Reference Interval Normal <150 mg/dL Borderline high 150 - 199 mg/dL High 200 - 499 mg/dL Very High > or = 500 mg/dL Blood erythrocytes count (nu mber/volume)Ordered By: Dr. Wei on 06-29-2022 RBC (Bld) [#/Vol] 4.28 10*6/uL 4.6-6.2 [facility] Blood hemoglobin measurement (mass/volume)Ordered By: Dr. Wei on 06-29-2022 Hemoglobin (Bld) [Mass/Vol] 14.4 g/dL 13.0-16.5 [facility] Blood lymphocytes/100 leukoc ytesOrdered By: Dr. Wei on 06-29-2022 Lymphocytes/100 WBC (Bld) 2.9 % 19-41 [facility] Blood manual differential co mment interpretation (narrative result)Ordered By: Dr. Wei on 06-29-2022 Manual differential comment Piyush (Bld) [Interp] SCANNED [facility] Comment on above: LYMPHOPENIA Blood monocytes/100 leukocyt esOrdered By: Dr[address] Wei on 06-29-2022 Monocytes/100 WBC (Bld) 4.4 % 0-10 [facility] Blood platelet mean volumeOr dered By: Dr. Wei on 06-29-2022 Platelet mean volume (Bld) [Entitic vol] 11.4 fL 6.2-12.0 [facility] Determination of erythrocyte mean corpuscular volume (MCV)Ordered By: Dr. Wei on 06-29-2022 MCV (RBC) [Entitic vol] 101.9 fL 80-94 [facility] Hematocrit Auto (Bld) [Volum e fraction]Ordered By: Dr. Wei on 06-29-2022 Hematocrit (Bld) [Volume fraction] 43.6 % 40-54 [facility] - Chemistry and C hemistry - challengeOrdered By: Dr. Wei on 06-29-2022 CO2 [Moles/Vol] 27.0 mmol/L 21.0-32.0 [facility] Urea nitrogen/Creatinine [Mass ratio] 16.2 mg/mg 10-20 [facility] - Hematology and Cell countsOrdered By: Dr. Wei on 06-29-2022 Anisocytosis Ql (Bld) 2+ [facility] Erythrocyte distribution width (RBC) [Entitic vol] 66.1 fL 35.1-43.9 [facility] Erythrocyte distribution width (RBC) [Ratio] 18.0 % 11.6-14.6 [facility] Immature granulocytes/100 WBC (Bld) 0.800 % 0.0-0.9 [facility] Comment on above: IG% - Immature Granu locytes (promyelocytes, myelocytes and metamyelocytes) > 1% indicates that a LEFT SHIFT is Present. MCH (RBC) [Entitic mass] 33.6 pg 27.0-32.0 [facility] Nucleated RBC/100 WBC (Bld) [Ratio] 2.7 % 0-5 [facility] MCHC Auto (RBC) [Mass/Vol]Or dered By: Dr. Wei on 06-29-2022 MCHC (RBC) [Mass/Vol] 33.0 g/dL 32-36 [facility] No Panel InformationOrdered By: Dr. Wei on 06-29-2022 Estimated Creatinine Clearance Calc 55.69 ml/min [facility] Estimated GFR (MDRD) Amer 60 mL/min >60 [facility] Comment on above: GFR Calc Estimated GFR (MDRD) Non-Af Amer 50 mL/min >60 [facility] Comment on above: Non- GFR Calc Platelets bldOrdered By: Dr. Wei on 06-29-2022 Platelets (Bld) [#/Vol] 191 10*3/uL 150-450 [facility] Serum or plasma calcium cory urement (mass/volume)Ordered By: Dr. Wei on 06-29-2022 Calcium [Mass/Vol] 9.1 mg/dL 8.5-10.1 [facility] Serum or plasma cholesterol in HDL measurement (mass/volume)Ordered By: Dr. Lu on 06-29-2022 Cholesterol in HDL [Mass/Vol] 54 mg/dL >40 [facility] Comment on above: The drugs N-Acetylcy steine and Metamizole may falsely depress this assay. Reference Range HDL <40 mg/dL Low HDL Cholesterol HDL >or= 60 mg/dL High HDL Cholesterol Serum or plasma cholesterol in VLDL measurement (mass/volume)Ordered By: Dr. Lu on 06-29-2022 Cholesterol in VLDL [Mass/Vol] 12 mg/dL 5-40 [facility] Serum or plasma creatinine m easurement (mass/volume)Ordered By: Dr. Wei on 06-29-2022 Creatinine [Mass/Vol] 1.54 mg/dL 0.70-1.30 [facility] Comment on above: The validity of the calculated GFR & GFRAA in patients over 70 years has not been determined. Clinical correlation is essential. Serum or plasma low density lipoprotein (LDL) cholesterol measurement (mass/volume)Ordered By: Dr. Lu on 06-29-2022 Cholesterol in LDL [Mass/Vol] 60 mg/dL 0-130 [facility] Serum or plasma urea nitroge n measurement (mass/volume)Ordered By: Dr. Wei on 06-29-2022 Urea nitrogen [Mass/Vol] 25 mg/dL 7-18 [facility] Thin prep Papanicolaou smear with manual screeningOrdered By: Dr. Wei on 06-29-2022 Thin prep Papanicolaou smear with manual screening 3 5-15 [facility] Basophil percentageOrdered B y: Dr. Lu on 06-28-2022 Bilirubin [Mass/Vol] 0.80 mg/dL 0.20-1.00 [facility] Comment on above: For patients on eltr ombopag therapy, use of Dimension [place] TBIL is not recommended. Protein [Mass/Vol] 6.7 g/dL 6.4-8.2 [facility] Blood polychromasia detectio n by light microscopyOrdered By: Dr. Lu on 06-28-2022 Polychromasia LM Ql (Bld) RARE [facility] INR in Blood by Coagulation assayOrdered By: Dr. Lu on 06-28-2022 INR Coag (Bld) [Relative time] 2.1 {INR} [facility] - Chemistry and C hemistry - challengeOrdered By: Dr. Lu on 06-28-2022 ALP [Catalytic activity/Vol] 111 U/L 45-117 [facility] ALT [Catalytic activity/Vol] 146 U/L 16-61 [facility] Globulin (S) [Mass/Vol] 3.6 g/dL 2.2-4.2 [facility] Magnesium [Mass/Vol] 2.1 mg/dL 1.6-2.6 [facility] - CoagulationOrde red By: Dr. Lu on 06-28-2022 PT Coag (PPP) [Time] 22.9 s 11.7-14.9 [facility] - Microbiology an d Antimicrobial susceptibilityOrdered By: Estelita Lu on 06-28-2022 Respiratory pathogens DNA and RNA 12b panel SANDOVAL+probe (Unsp spec) [facility] - Microbiology an d Antimicrobial susceptibilityOrdered By: Dr. Lu on 06-28-2022 Respiratory pathogens DNA and RNA 12b panel SANDOVAL+probe (Unsp spec) [facility] Macrocytes detectionOrdered By: Dr. Lu on 06-28-2022 Macrocytes Ql (Bld) 1+ [facility] No Panel InformationOrdered By: Dr. Lu on 06-28-2022 Troponin I High Sensitivity 87 pg/mL 3.0-78.0 [facility] Comment on above: Please Note: [place] t Units and Gender Specific Reference Ranges. For more information see Policy Stat Procedure [place] High Sensitivity Troponin (TNIH) and attachments. Thyroid Stimulating Hormone (TSH) 2.20 uIU/mL 0.358-3.74 [facility] Ovalocyte detectionOrdered B y: Dr. Lu on 06-28-2022 Ovalocytes LM Ql (Bld) RARE [facility] Serum or plasma albumin cory urement (mass/volume)Ordered By: Dr. Lu on 06-28-2022 Albumin [Mass/Vol] 3.1 g/dL 3.2-5.0 [facility] Serum or plasma albumin/glob ulin mass ratioOrdered By: Dr. Lu on 06-28-2022 Albumin/Globulin [Mass ratio] 0.9 {ratio} 0.9-2.4 [facility] Serum procalcitonin measurem entOrdered By: Dr. Lu on 06-28-2022 Procalcitonin [Mass/Vol] 0.09 ng/mL 0.00-0.09 [facility] Comment on above: A procalcitonin (PCT ) level above 2.0 ng/mL on the first day of ICU admission is associated with a high risk for progression to severe sepsis and/or septic shock. A PCT level below 0.5 ng/mL on the first day of ICU admission is associated with a low risk for progression to severe and/or septic shock. Note: Concentrations <0.5 ng/mL do not exclude an infection on account of localized infections (without systemic signs) which can be associated with such low concentrations, or a systemic infection in its initial stages (<6 hours). Furthermore, increased procalcitonin can occur without infection. PCT concentrations between 0.5 and 2.0 ng/mL should be interpreted taking into account the patient's history. It is recommended to retest PCT within 6-24 hours if any concentrations <2 ng/mL are obtained. Thin prep Papanicolaou smear with manual screeningOrdered By: Dr. Lu on 06-28-2022 Thin prep Papanicolaou smear with manual screening 130 U/L 15-37 [facility] Absolute lymphocyte countOrd ered By: Dr. Hastings on 06-27-2022 Lymphocytes Auto (Unsp spec) [#/Vol] 0.93 10*3/uL 0.83-4.51 [facility] Basophil percentageOrdered B y: Dr. Lu on 06-27-2022 Basophil percentage 2.8 mg/dL 2.5-4.9 [facility] Basophil percentageOrdered B y: Dr. Hastings on 06-27-2022 Basophils/100 WBC (Bld) 0.4 % 0-1 [facility] Chloride [Moles/Vol] 109 mmol/L 98-107 [facility] Eosinophils/100 WBC (Bld) 0.5 % 0-5 [facility] Glucose [Mass/Vol] 127 mg/dL 74-106 [facility] Comment on above: Fasting Glucose resu lt greater than or equal to 126 mg/dL suggests DIABETES MELLITUS per A.D.A. criteria. Neutrophils (Bld) [#/Vol] 4.2 10*3/uL 2.0-7.7 [facility] Neutrophils/100 WBC (Bld) 75.4 % 47-70 [facility] Potassium [Moles/Vol] 3.5 mmol/L 3.5-5.1 [facility] Sodium [Moles/Vol] 140 mmol/L 136-145 [facility] WBC (Bld) [#/Vol] 5.5 10*3/uL 4.4-11.0 [facility] Blood erythrocytes count (nu mber/volume)Ordered By: Dr. Hastings on 06-27-2022 RBC (Bld) [#/Vol] 4.24 10*6/uL 4.6-6.2 [facility] Blood hemoglobin measurement (mass/volume)Ordered By: Dr. Hastings on 06-27-2022 Hemoglobin (Bld) [Mass/Vol] 14.6 g/dL 13.0-16.5 [facility] Blood lymphocytes/100 leukoc ytesOrdered By: Dr. Hastings on 06-27-2022 Lymphocytes/100 WBC (Bld) 16.8 % 19-41 [facility] Blood manual differential co mment interpretation (narrative result)Ordered By: Dr. Hastings on 06-27-2022 Manual differential comment Piyush (Bld) [Interp] SCANNED [facility] Blood monocytes/100 leukocyt esOrdered By: Dr. Hastings on 06-27-2022 Monocytes/100 WBC (Bld) 6.0 % 0-10 [facility] Blood platelet mean volumeOr dered By: Dr. Hastings on 06-27-2022 Platelet mean volume (Bld) [Entitic vol] 11.2 fL 6.2-12.0 [facility] Determination of erythrocyte mean corpuscular volume (MCV)Ordered By: Dr. Hastings on 06-27-2022 MCV (RBC) [Entitic vol] 103.3 fL 80-94 [facility] Hematocrit Auto (Bld) [Volum e fraction]Ordered By: Dr. Hastings on 06-27-2022 Hematocrit (Bld) [Volume fraction] 43.8 % 40-54 [facility] INR in Blood by Coagulation assayOrdered By: Dr. Hastings on 06-27-2022 INR Coag (Bld) [Relative time] 2.0 {INR} [facility] - Chemistry and C hemistry - challengeOrdered By: Dr. Hastings on 06-27-2022 CO2 [Moles/Vol] 26.0 mmol/L 21.0-32.0 [facility] Natriuretic peptide B (Bld) [Mass/Vol] 278.3 pg/mL 0-100 [facility] Urea nitrogen/Creatinine [Mass ratio] 14.7 mg/mg 10-20 [facility] - CoagulationOrde red By: Dr. Hastings on 06-27-2022 aPTT Coag (Bld) [Time] 46.5 s 24.1-36.2 [facility] PT Coag (PPP) [Time] 22.5 s 11.7-14.9 [facility] - Hematology and Cell countsOrdered By: Dr. Hastings on 06-27-2022 Anisocytosis Ql (Bld) 2+ [facility] Erythrocyte distribution width (RBC) [Entitic vol] 67.8 fL 35.1-43.9 [facility] Erythrocyte distribution width (RBC) [Ratio] 17.9 % 11.6-14.6 [facility] Immature granulocytes/100 WBC (Bld) 0.900 % 0.0-0.9 [facility] Comment on above: IG% - Immature Granu locytes (promyelocytes, myelocytes and metamyelocytes) > 1% indicates that a LEFT SHIFT is Present. MCH (RBC) [Entitic mass] 34.4 pg 27.0-32.0 [facility] Nucleated RBC/100 WBC (Bld) [Ratio] 2.9 % 0-5 [facility] MCHC Auto (RBC) [Mass/Vol]Or dered By: Dr. Hastings on 06-27-2022 MCHC (RBC) [Mass/Vol] 33.3 g/dL 32-36 [facility] Macrocytes detectionOrdered By: Dr. Hastings on 06-27-2022 Macrocytes Ql (Bld) 2+ [facility] No Panel InformationOrdered By: Dr. Hastings on 06-27-2022 Estimated Creatinine Clearance Calc 46.61 ml/min [facility] Estimated GFR (MDRD) Amer 49 mL/min >60 [facility] Comment on above: GFR Calc Estimated GFR (MDRD) Non-Af Amer 40 mL/min >60 [facility] Comment on above: Non- GFR Calc Troponin I High Sensitivity 92 pg/mL 3.0-78.0 [facility] Comment on above: Please Note: [place] t Units and Gender Specific Reference Ranges. For more information see Policy Stat Procedure [place] High Sensitivity Troponin (TNIH) and attachments. Platelets bldOrdered By: Dr. Hastings on 06-27-2022 Platelets (Bld) [#/Vol] 201 10*3/uL 150-450 [facility] Serum or plasma calcium cory urement (mass/volume)Ordered By: Dr. Hastings on 06-27-2022 Calcium [Mass/Vol] 8.9 mg/dL 8.5-10.1 [facility] Serum or plasma creatinine m easurement (mass/volume)Ordered By: Dr. Hastings on 06-27-2022 Creatinine [Mass/Vol] 1.84 mg/dL 0.70-1.30 [facility] Comment on above: The validity of the calculated GFR & GFRAA in patients over 70 years has not been determined. Clinical correlation is essential. Serum or plasma urea nitroge n measurement (mass/volume)Ordered By: Dr. Hastings on 06-27-2022 Urea nitrogen [Mass/Vol] 27 mg/dL 7-18 [facility] Thin prep Papanicolaou smear with manual screeningOrdered By: Dr. Hastings on 06-27-2022 Thin prep Papanicolaou smear with manual screening 5 5-15 [facility] Basophil percentageOrdered B y: Dr. Che on 05-20-2022 Chloride [Moles/Vol] 103 mmol/L 98-107 [facility] Glucose [Mass/Vol] 170 mg/dL 74-106 [facility] Comment on above: Fasting Glucose resu lt greater than or equal to 126 mg/dL suggests DIABETES MELLITUS per A.D.A. criteria. Potassium [Moles/Vol] 3.3 mmol/L 3.5-5.1 [facility] Sodium [Moles/Vol] 140 mmol/L 136-145 [facility] INR in Blood by Coagulation assayOrdered By: Dr. Dukes on 05-20-2022 INR Coag (Bld) [Relative time] 2.7 {INR} [facility] Laboratory - Chemistry and C hemistry - challengeOrdered By: Dr. Che on 05-20-2022 CO2 [Moles/Vol] 30.0 mmol/L 21.0-32.0 [facility] Urea nitrogen/Creatinine [Mass ratio] 11.8 mg/mg 10-20 [facility] - CoagulationOrde red By: Dr. Dukes on 05-20-2022 PT Coag (PPP) [Time] 28.3 s 11.7-14.9 [facility] No Panel InformationOrdered By: Dr. Che on 05-20-2022 Estimated Creatinine Clearance Calc 48.18 ml/min [facility] Estimated GFR (MDRD) Amer 51 mL/min >60 [facility] Comment on above: GFR Calc Estimated GFR (MDRD) Non-Af Amer 42 mL/min >60 [facility] Comment on above: Non- GFR Calc Serum or plasma calcium cory urement (mass/volume)Ordered By: Dr. Che on 05-20-2022 Calcium [Mass/Vol] 8.8 mg/dL 8.5-10.1 [facility] Serum or plasma creatinine m easurement (mass/volume)Ordered By: Dr. Che on 05-20-2022 Creatinine [Mass/Vol] 1.78 mg/dL 0.70-1.30 [facility] Comment on above: The validity of the calculated GFR & GFRAA in patients over 70 years has not been determined. Clinical correlation is essential. Serum or plasma urea nitroge n measurement (mass/volume)Ordered By: Dr. Che on 05-20-2022 Urea nitrogen [Mass/Vol] 21 mg/dL 7- [facility] Thin prep Papanicolaou smear with manual screeningOrdered By: Dr. Che on 05-20-2022 Thin prep Papanicolaou smear with manual screening 7 - [facility] Absolute lymphocyte countOrd ered By: Dr. Dukes on 05-19-2022 Lymphocytes Auto (Unsp spec) [#/Vol] 0.92 10*3/uL 0.83-4.51 [facility] Basophil percentageOrdered B y: Dr. Dukes on 05-19-2022 Basophils/100 WBC (Bld) 0.2 % 0-1 [facility] Bilirubin [Mass/Vol] 0.70 mg/dL 0.20-1.00 [facility] Comment on above: For patients on eltr ombopag therapy, use of Dimension [place] TBIL is not recommended. Eosinophils/100 WBC (Bld) 0.5 % 0-5 [facility] Neutrophils (Bld) [#/Vol] 5.0 10*3/uL 2.0-7.7 [facility] Neutrophils/100 WBC (Bld) 80.2 % 47-70 [facility] Protein [Mass/Vol] 6.4 g/dL 6.4-8.2 [facility] WBC (Bld) [#/Vol] 6.2 10*3/uL 4.4-11.0 [facility] Blood erythrocytes count (nu mber/volume)Ordered By: Dr. Dukes on 05-19-2022 RBC (Bld) [#/Vol] 3.95 10*6/uL 4.6-6.2 [facility] Blood hemoglobin measurement (mass/volume)Ordered By: Dr. Dukes on 05-19-2022 Hemoglobin (Bld) [Mass/Vol] 13.5 g/dL 13.0-16.5 [facility] Blood lymphocytes/100 leukoc ytesOrdered By: Dr. Dukes on 05-19-2022 Lymphocytes/100 WBC (Bld) 14.8 % 19-41 [facility] Blood manual differential co mment interpretation (narrative result)Ordered By: Dr. Dukes on 05-19-2022 Manual differential comment Piyush (Bld) [Interp] SCANNED [facility] Blood monocytes/100 leukocyt esOrdered By: Dr. Dukes on 05-19-2022 Monocytes/100 WBC (Bld) 4.0 % 0-10 [facility] Blood platelet mean volumeOr dered By: Dr. Dukes on 05-19-2022 Platelet mean volume (Bld) [Entitic vol] 10.0 fL 6.2-12.0 [facility] Blood polychromasia detectio n by light microscopyOrdered By: Dr. Dukes on 05-19-2022 Polychromasia LM Ql (Bld) RARE [facility] Determination of erythrocyte mean corpuscular volume (MCV)Ordered By: Dr. Dukes on 05-19-2022 MCV (RBC) [Entitic vol] 104.1 fL 80-94 [facility] Hematocrit Auto (Bld) [Volum e fraction]Ordered By: Dr. Dukes on 05-19-2022 Hematocrit (Bld) [Volume fraction] 41.1 % 40-54 [facility] - Chemistry and C hemistry - challengeOrdered By: Dr. Dukes on 05-19-2022 ALP [Catalytic activity/Vol] 64 U/L 45-117 [facility] ALT [Catalytic activity/Vol] 61 U/L 16-61 [facility] Globulin (S) [Mass/Vol] 3.4 g/dL 2.2-4.2 [facility] Magnesium [Mass/Vol] 2.1 mg/dL 1.6-2.6 [facility] Laboratory - Hematology and Cell countsOrdered By: Dr. Dukes on 05-19-2022 Anisocytosis Ql (Bld) 2+ [facility] Erythrocyte distribution width (RBC) [Entitic vol] 74.2 fL 35.1-43.9 [facility] Erythrocyte distribution width (RBC) [Ratio] 19.1 % 11.6-14.6 [facility] Immature granulocytes/100 WBC (Bld) 0.300 % 0.0-0.9 [facility] Comment on above: IG% - Immature Granu locytes (promyelocytes, myelocytes and metamyelocytes) > 1% indicates that a LEFT SHIFT is Present. MCH (RBC) [Entitic mass] 34.2 pg 27.0-32.0 [facility] Nucleated RBC/100 WBC (Bld) [Ratio] 0.6 % 0-5 [facility] - Microbiology an d Antimicrobial susceptibilityOrdered By: Dr. Dukes on 05-19-2022 Respiratory pathogens DNA and RNA 12b panel SANDOVAL+probe (Unsp spec) [facility] MCHC Auto (RBC) [Mass/Vol]Or dered By: Dr. Dukes on 05-19-2022 MCHC (RBC) [Mass/Vol] 32.8 g/dL 32-36 [facility] Macrocytes detectionOrdered By: Dr. Dukes on 05-19-2022 Macrocytes Ql (Bld) 1+ [facility] No Panel InformationOrdered By: Dr. Dukes on 05-19-2022 Thyroid Stimulating Hormone (TSH) 1.31 uIU/mL 0.358-3.74 [facility] Ovalocyte detectionOrdered B y: Dr. Dkues on 05-19-2022 Ovalocytes LM Ql (Bld) RARE [facility] Platelets bldOrdered By: Dr. Dukes on 05-19-2022 Platelets (Bld) [#/Vol] 173 10*3/uL 150-450 [facility] Serum or plasma albumin cory urement (mass/volume)Ordered By: Dr. Dukes on 05-19-2022 Albumin [Mass/Vol] 3.0 g/dL 3.2-5.0 [facility] Serum or plasma albumin/glob ulin mass ratioOrdered By: Dr. Dukes on 05-19-2022 Albumin/Globulin [Mass ratio] 0.9 {ratio} 0.9-2.4 [facility] Thin prep Papanicolaou smear with manual screeningOrdered By: Dr. Dukes on 05-19-2022 Thin prep Papanicolaou smear with manual screening 38 U/L 15-37 [facility] Absolute lymphocyte countOrd ered By: Dr. Banda on 05-18-2022 Lymphocytes Auto (Unsp spec) [#/Vol] 0.87 10*3/uL 0.83-4.51 [facility] Basophil percentageOrdered B y: Dr. Banda on 05-18-2022 Basophils/100 WBC (Bld) 0.5 % 0-1 [facility] Chloride [Moles/Vol] 105 mmol/L 98-107 [facility] Eosinophils/100 WBC (Bld) 0.2 % 0-5 [facility] Glucose [Mass/Vol] 124 mg/dL 74-106 [facility] Comment on above: Fasting Glucose resu lt from 100 to 125 mg/dL suggests IMPAIRED HOMEOSTASIS per A.D.A. criteria. Neutrophils (Bld) [#/Vol] 5.3 10*3/uL 2.0-7.7 [facility] Neutrophils/100 WBC (Bld) 80.8 % 47-70 [facility] Potassium [Moles/Vol] 3.8 mmol/L 3.5-5.1 [facility] Comment on above: Slight Hemolysis, Re sult may be falsely increased. Sodium [Moles/Vol] 143 mmol/L 136-145 [facility] WBC (Bld) [#/Vol] 6.6 10*3/uL 4.4-11.0 [facility] Blood erythrocytes count (nu mber/volume)Ordered By: Dr. Banda on 05-18-2022 RBC (Bld) [#/Vol] 4.33 10*6/uL 4.6-6.2 [facility] Blood hemoglobin measurement (mass/volume)Ordered By: Dr. Banda on 05-18-2022 Hemoglobin (Bld) [Mass/Vol] 14.6 g/dL 13.0-16.5 [facility] Blood lymphocytes/100 leukoc ytesOrdered By: Dr. Banda on 03-13-2023 Lymphocytes/100 WBC (Bld) 13.3 % 19-41 [facility] Blood monocytes/100 leukocyt esOrdered By: Dr. Banda on 05-18-2022 Monocytes/100 WBC (Bld) 4.9 % 0-10 [facility] Blood platelet adequacy dete ction by light microscopyOrdered By: Dr. Banda on 05-18-2022 Platelets LM Ql (Bld) SLT DEC ADEQ [facility] Blood platelet mean volumeOr dered By: Dr. Banda on 05-18-2022 Platelet mean volume (Bld) [Entitic vol] 10.3 fL 6.2-12.0 [facility] CNPNon 05-18-2022 CNPN Telephone (CARMOB) ----- YEFRI YANEZ ([id number]) [address] [facility] Date Time Provider Department 05/18/22 SAYRA TELLO During your visit today, we recorded the following information about you: Abbey Nash 05/18/2022 8:28 AM Signed Received a records request from [facility]. Will pull and fax records. Abbey Nash 05/18/2022 10:51 AM Signed Faxed records to [facility] at [phone] Allergies As of Date: 05/18/2022 Noted Allergy Reaction LISINOPRIL 09/01/2012 18 - Angioedema SHELLFISH CONTAINING PRODUCTS 06/04/2019 10 - Anaphylaxis 4 - Hives ASPIRIN 07/21/2004 5 - Intolerance MUSHROOM 08/05/2021 4 - Hives PENICILLINS 11/01/2003 5 - Intolerance Date Reviewed: 04/09/2022 Reviewed by: Bernarda Kee MA - Fully Assessed Reason for Visit: Release Of Medical Records [2017] Prescriptions as of 05/18/2022 - CABOMETYX 20 mg tablet Take 20 mg by mouth once daily. - furosemide (LASIX) 40 mg tablet Take 1 tablet by mouth once daily. - torsemide (DEMADEX) 20 mg tablet Take 2 tablets by mouth once daily. TAKE 2 TABLETS BY MOUTH TO EQUAL 40 MG ONCE PER DAY - amLODIPine (NORVASC) 10 mg tablet - albuterol (PROVENTIL) 2.5 mg /3 mL (0.083 %) nebulizer solution - carvedilol (COREG) 12.5 mg tablet once daily. - losartan (COZAAR) 50 mg tablet - lovastatin (MEVACOR) 20 mg tablet daily at bedtime. - TRELEGY ELLIPTA 100-62.5-25 mcg inhalation powder - spironolactone (ALDACTONE) 25 mg tablet Take 0.5 tablets by mouth once daily. - warfarin (COUMADIN) 5 mg tablet Take 1 tablet by mouth once daily. - rosuvastatin (CRESTOR) 40 mg tablet Take 1 tablet by mouth once daily. - albuterol HFA (PROVENTIL HFA, VENTOLIN HFA) 90 mcg/actuation inhaler Inhale 2 Puffs as instructed every 4 hours as needed for wheezing/shortness of breath. - ferrous sulfate 325 mg (65 mg iron) tablet TAKE 1 TABLET BY MOUTH TWICE A DAY - cyclobenzaprine (FLEXERIL) 10 mg tablet Take by mouth three times daily as needed for muscle spasm. - acetaminophen (TYLENOL EXTRA STRENGTH) 500 mg tablet Take 2 tablets by mouth every 6 hours as needed for pain. - pantoprazole DR (PROTONIX) 40 mg tablet Take 1 tablet by mouth once daily. Facility-Administered Medications as of 05/18/2022 - perflutren lipid microspheres 1.3 mL in NaCl (PF) 0.9% 10 mL injection (DEFINITY) - sodium chloride 0.9 % (flush) 10 mL (BD POSIFLUSH) Meds Comments as of 09/29/2021: 09/29/21 The medications are managed by this patient by: [facility] Carr, [facility], [facility] Problem List As Of Date 05/18/2022 Noted Resolved BENIGN HYPERTENSION [I10] 06/30/2004 03/12/2008 HLD (hyperlipidemia) [E78.5] 06/30/2004 ROUTINE MEDICAL EXAM [Z00.00] 06/30/2004 11/26/2014 Disturbance in sleep behavior [G47.9] 06/30/2004 CHEST PAIN NOS [R07.9] 06/30/2004 11/26/2014 ALLERGIC RHINITIS NOS [J30.9] 06/30/2004 JOINT PAIN-SHLDER [M25.519] 06/04/2006 Essential hypertension [I10] 03/12/2008 ESOPHAGEAL REFLUX [K21.9] 03/12/2008 TOBACCO USE DISORDER [F17.200] 03/12/2008 NIMCO (obstructive sleep apnea) [G47.33] 11/15/2019 History of seizure [Z87.898] 11/15/2019 Class 2 obesity due to excess calories without *11/15/2019 Renal cell carcinoma of right kidney (HCC) [C64*07/23/2021 Metastatic renal cell carcinoma (HCC) [C64.9] 07/24/2021 New onset a-fib (HCC) [I48.91] 09/02/2021 Nonrheumatic mitral valve regurgitation [I34.0] 09/04/2021 Acute decompensated heart failure (HCC) [I50.9] 09/22/2021 Prediabetes [R73.03] 10/27/2021 CAD (coronary artery disease) [I25.10] 10/27/2021 Encounter Status:Closed by ABBEY NASH on 05/18/22 [facility] COVID-19 virus antigen assay Ordered By: Dr. Dukes on 05-18-2022 SARS-CoV-2 (COVID-19) Ag IA.rapid Ql (Resp) Not detected Not Detect [facility] Comment on above: Normal Reference Ran ge: Not DetectedMethod:(RT-PCR) real-time reverse transcriptase PCRLuminex KAT Instrument*The Food and Drug Administration (FDA) has issued an Emergency Use Authorization (EAU) for the KAT SARS-CoV-2 Assay for the rapid detection of the virus that causes COVID-19. This test has been validated, but the FDAs independent review of this validation is pending.*Negative results do not preclude infection and should not be used as the sole basis for treatment or patient management. Optimum specimen types and timing for peak viral levels during infections caused by SARS-CoV-2 have not been determined. Collection of multiple specimens from the same patient may be necessary to detect the virus. The possibility of a false negative result should be considered if the patient has clinical presentation or has had recent exposure. Determination of erythrocyte mean corpuscular volume (MCV)Ordered By: Dr. Banda on 05-18-2022 MCV (RBC) [Entitic vol] 102.1 fL 80-94 [facility] Hematocrit Auto (Bld) [Volum e fraction]Ordered By: Dr. Banda on 05-18-2022 Hematocrit (Bld) [Volume fraction] 44.2 % 40-54 [facility] INR in Blood by Coagulation assayOrdered By: Dr. Banda on 05-18-2022 INR Coag (Bld) [Relative time] 2.8 {INR} [facility] - Chemistry and C hemistry - challengeOrdered By: Dr. Banda on 05-18-2022 CO2 [Moles/Vol] 31.0 mmol/L 21.0-32.0 [facility] Natriuretic peptide B (Bld) [Mass/Vol] 343.5 pg/mL 0-100 [facility] Urea nitrogen/Creatinine [Mass ratio] 11.5 mg/mg 10-20 [facility] - CoagulationOrde red By: Dr. Banda on 05-18-2022 PT Coag (PPP) [Time] 28.9 s 11.7-14.9 [facility] - Hematology and Cell countsOrdered By: Dr. Banda on 05-18-2022 Anisocytosis Ql (Bld) 2+ [facility] Erythrocyte distribution width (RBC) [Entitic vol] 74.1 fL 35.1-43.9 [facility] Erythrocyte distribution width (RBC) [Ratio] 19.4 % 11.6-14.6 [facility] Immature granulocytes/100 WBC (Bld) 0.300 % 0.0-0.9 [facility] Comment on above: IG% - Immature Granu locytes (promyelocytes, myelocytes and metamyelocytes) > 1% indicates that a LEFT SHIFT is Present. MCH (RBC) [Entitic mass] 33.7 pg 27.0-32.0 [facility] Nucleated RBC/100 WBC (Bld) [Ratio] 0.6 % 0-5 [facility] - Microbiology an d Antimicrobial susceptibilityOrdered By: Alicia Dukes on 05-18-2022 Respiratory pathogens DNA and RNA 12b panel SANDOVAL+probe (Unsp spec) [facility] [Mass/Vol]Or dered By: Dr. Banda on 05-18-2022 MCHC (RBC) [Mass/Vol] 33.0 g/dL 32-36 [facility] No Panel InformationOrdered By: Dr. Banda on 05-18-2022 Estimated Creatinine Clearance Calc 54.62 ml/min [facility] Estimated GFR (MDRD) Amer 59 mL/min >60 [facility] Comment on above: GFR Calc Estimated GFR (MDRD) Non-Af Amer 48 mL/min >60 [facility] Comment on above: Non- GFR Calc Troponin I High Sensitivity 73 pg/mL 3.0-78.0 [facility] Comment on above: Please Note: [place] t Units and Gender Specific Reference Ranges. For more information see Policy Stat Procedure [place] High Sensitivity Troponin (TNIH) and attachments. Ovalocyte detectionOrdered B y: Dr. Banda on 05-18-2022 Ovalocytes LM Ql (Bld) 1+ [facility] Platelets bldOrdered By: Dr. Banda on 05-18-2022 Platelets (Bld) [#/Vol] 183 10*3/uL 150-450 [facility] Serum or plasma calcium cory urement (mass/volume)Ordered By: Dr. Banda on 05-18-2022 Calcium [Mass/Vol] 9.2 mg/dL 8.5-10.1 [facility] Serum or plasma creatinine m easurement (mass/volume)Ordered By: Dr. Banda on 05-18-2022 Creatinine [Mass/Vol] 1.57 mg/dL 0.70-1.30 [facility] Comment on above: The validity of the calculated GFR & GFRAA in patients over 70 years has not been determined. Clinical correlation is essential. Serum or plasma urea nitroge n measurement (mass/volume)Ordered By: Dr. Banda on 05-18-2022 Urea nitrogen [Mass/Vol] 18 mg/dL 7-18 [facility] Thin prep Papanicolaou smear with manual screeningOrdered By: Dr. Banda on 05-18-2022 Thin prep Papanicolaou smear with manual screening 7 5-15 [facility] Basophil percentageOrdered B y: Dr. Chiu on 04-16-2022 Chloride [Moles/Vol] 105 mmol/L 98-107 [facility] Glucose [Mass/Vol] 110 mg/dL 74-106 [facility] Comment on above: Fasting Glucose resu lt from 100 to 125 mg/dL suggests IMPAIRED HOMEOSTASIS per A.D.A. criteria. Potassium [Moles/Vol] 3.7 mmol/L 3.5-5.1 [facility] Sodium [Moles/Vol] 141 mmol/L 136-145 [facility] INR in Blood by Coagulation assayOrdered By: Dr. Camacho on 04-16-2022 INR Coag (Bld) [Relative time] 2.1 {INR} [facility] - Chemistry and C hemistry - challengeOrdered By: Dr. Chiu on 04-16-2022 CO2 [Moles/Vol] 31.0 mmol/L 21.0-32.0 [facility] Urea nitrogen/Creatinine [Mass ratio] 17.2 mg/mg 10-20 [facility] - CoagulationOrde red By: Dr. Camacho on 04-16-2022 PT Coag (PPP) [Time] 23.6 s 11.7-14.9 [facility] No Panel InformationOrdered By: Dr. Chiu on 04-16-2022 Estimated Creatinine Clearance Calc 49.19 ml/min [facility] Estimated GFR (MDRD) Amer 54 mL/min >60 [facility] Comment on above: GFR Calc Estimated GFR (MDRD) Non-Af Amer 45 mL/min >60 [facility] Comment on above: Non- GFR Calc Serum or plasma calcium cory urement (mass/volume)Ordered By: Dr. Chiu on 04-16-2022 Calcium [Mass/Vol] 9.0 mg/dL 8.5-10.1 [facility] Serum or plasma creatinine m easurement (mass/volume)Ordered By: Dr. Chiu on 04-16-2022 Creatinine [Mass/Vol] 1.69 mg/dL 0.70-1.30 [facility] Comment on above: The validity of the calculated GFR & GFRAA in patients over 70 years has not been determined. Clinical correlation is essential. Serum or plasma urea nitroge n measurement (mass/volume)Ordered By: Dr. Chiu on 04-16-2022 Urea nitrogen [Mass/Vol] 29 mg/dL 7-18 [facility] Thin prep Papanicolaou smear with manual screeningOrdered By: Dr. Chiu on 04-16-2022 Thin prep Papanicolaou smear with manual screening 5 5-15 [facility] Absolute lymphocyte countOrd ered By: Dr. Chiu on 04-15-2022 Lymphocytes Auto (Unsp spec) [#/Vol] 0.77 10*3/uL 0.83-4.51 [facility] Basophil percentageOrdered B y: Dr. Chiu on 04-15-2022 Basophil percentage 3.9 mg/dL 2.5-4.9 [facility] Basophils/100 WBC (Bld) 0.6 % 0-1 [facility] Cholesterol [Mass/Vol] 190 mg/dL <200 [facility] Comment on above: <200 mg/dL Desirable 200-240 mg/dL Borderline >240 mg/dL High Risk Eosinophils/100 WBC (Bld) 0.4 % 0-5 [facility] Neutrophils (Bld) [#/Vol] 3.8 10*3/uL 2.0-7.7 [facility] Neutrophils/100 WBC (Bld) 74.5 % 47-70 [facility] Triglyceride [Mass/Vol] 159 mg/dL <199 [facility] Comment on above: The drugs N-Acetylcy steine and Metamizole may falsely depress this assay.Serum Triglycerides Reference Interval Normal <150 mg/dL Borderline high 150 - 199 mg/dL High 200 - 499 mg/dL Very High > or = 500 mg/dL WBC (Bld) [#/Vol] 5.1 10*3/uL 4.4-11.0 [facility] Blood erythrocytes count (nu mber/volume)Ordered By: Dr. Chiu on 04-15-2022 RBC (Bld) [#/Vol] 3.92 10*6/uL 4.6-6.2 [facility] Blood hemoglobin measurement (mass/volume)Ordered By: Dr. Chiu on 04-15-2022 Hemoglobin (Bld) [Mass/Vol] 12.6 g/dL 13.0-16.5 [facility] Blood lymphocytes/100 leukoc ytesOrdered By: Dr. Chiu on 04-15-2022 Lymphocytes/100 WBC (Bld) 15.1 % 19-41 [facility] Blood monocytes/100 leukocyt esOrdered By: Dr. Chiu on 04-15-2022 Monocytes/100 WBC (Bld) 8.4 % 0-10 [facility] Blood platelet mean volumeOr dered By: Dr. Chiu on 04-15-2022 Platelet mean volume (Bld) [Entitic vol] 11.1 fL 6.2-12.0 [facility] Determination of erythrocyte mean corpuscular volume (MCV)Ordered By: Dr. Chiu on 04-15-2022 MCV (RBC) [Entitic vol] 98.2 fL 80-94 [facility] Hematocrit Auto (Bld) [Volum e fraction]Ordered By: Dr. Chiu on 04-15-2022 Hematocrit (Bld) [Volume fraction] 38.5 % 40-54 [facility] - Chemistry and C hemistry - challengeOrdered By: Dr. Chiu on 04-15-2022 Magnesium [Mass/Vol] 2.1 mg/dL 1.6-2.6 [facility] Comment on above: Moderate Hemolysis, Result may be falsely increased. Laboratory - Hematology and Cell countsOrdered By: Dr. Chiu on 04-15-2022 Anisocytosis Ql (Bld) 2+ [facility] Erythrocyte distribution width (RBC) [Entitic vol] 73.5 fL 35.1-43.9 [facility] Erythrocyte distribution width (RBC) [Ratio] 20.7 % 11.6-14.6 [facility] Immature granulocytes/100 WBC (Bld) 1.000 % 0.0-0.9 [facility] Comment on above: IG% - Immature Granu locytes (promyelocytes, myelocytes and metamyelocytes) > 1% indicates that a LEFT SHIFT is Present. MCH (RBC) [Entitic mass] 32.1 pg 27.0-32.0 [facility] Nucleated RBC/100 WBC (Bld) [Ratio] 5.7 % 0-5 [facility] MCHC Auto (RBC) [Mass/Vol]Or dered By: Dr. Chiu on 04-15-2022 MCHC (RBC) [Mass/Vol] 32.7 g/dL 32-36 [facility] Macrocytes detectionOrdered By: Dr. Chiu on 04-15-2022 Macrocytes Ql (Bld) 1+ [facility] Platelets bldOrdered By: Dr. Chiu on 04-15-2022 Platelets (Bld) [#/Vol] 212 10*3/uL 150-450 [facility] Serum or plasma cholesterol in HDL measurement (mass/volume)Ordered By: Dr. Chiu on 04-15-2022 Cholesterol in HDL [Mass/Vol] 39 mg/dL >40 [facility] Comment on above: The drugs N-Acetylcy steine and Metamizole may falsely depress this assay. Reference Range HDL <40 mg/dL Low HDL Cholesterol HDL >or= 60 mg/dL High HDL Cholesterol Serum or plasma cholesterol in VLDL measurement (mass/volume)Ordered By: Dr. Chiu on 04-15-2022 Cholesterol in VLDL [Mass/Vol] 32 mg/dL 5-40 [facility] Serum or plasma low density lipoprotein (LDL) cholesterol measurement (mass/volume)Ordered By: Dr. Chiu on 04-15-2022 Cholesterol in LDL [Mass/Vol] 119 mg/dL 0-130 [facility] Basophil percentageOrdered B y: Dr. Camacho on 04-14-2022 Bilirubin [Mass/Vol] 1.20 mg/dL 0.20-1.00 [facility] Comment on above: For patients on eltr ombopag therapy, use of Dimension [place] TBIL is not recommended. Protein [Mass/Vol] 6.5 g/dL 6.4-8.2 [facility] Blood manual differential co mment interpretation (narrative result)Ordered By: Dr. Camacho on 04-14-2022 Manual differential comment Piyush (Bld) [Interp] SCANNED [facility] Laboratory - Chemistry and C hemistry - challengeOrdered By: Dr. Camacho on 04-14-2022 ALP [Catalytic activity/Vol] 75 U/L 45-117 [facility] ALT [Catalytic activity/Vol] 46 U/L 16-61 [facility] Globulin (S) [Mass/Vol] 3.7 g/dL 2.2-4.2 [facility] No Panel InformationOrdered By: Dr. Camacoh on 04-14-2022 Troponin I High Sensitivity 121 pg/mL 3.0-78.0 [facility] Comment on above: Critical Result(s) C alled at: 04:02:32 04/14/2022 by: CHERI THOMAS to Isaac Callahan MITER OPERATOR. Results read back by same. Please Note: New Test Units and Gender Specific Reference Ranges. For more information see Policy Stat Procedure [place] High Sensitivity Troponin (TNIH) and attachments. No Panel InformationOrdered By: ED PROVIDER on 04-14-2022 Troponin I High Sensitivity 133 pg/mL 3.0-78.0 [facility] Comment on above: Critical Result(s) C alled at: 00:45:24 04/14/2022 by: Mello Figueroa TO BON KAUFFMAN RN (ED) Results read back by same. Please Note: New Test Units and Gender Specific Reference Ranges. For more information see Policy Stat Procedure [place] High Sensitivity Troponin (TNIH) and attachments. Serum or plasma albumin cory urement (mass/volume)Ordered By: Dr. Camacho on 04-14-2022 Albumin [Mass/Vol] 2.8 g/dL 3.2-5.0 [facility] Serum or plasma albumin/glob ulin mass ratioOrdered By: Dr. Camacho on 04-14-2022 Albumin/Globulin [Mass ratio] 0.8 {ratio} 0.9-2.4 [facility] Thin prep Papanicolaou smear with manual screeningOrdered By: Dr. Camacho on 04-14-2022 Thin prep Papanicolaou smear with manual screening 37 U/L 15-37 [facility] Absolute lymphocyte countOrd ered By: ED PROVIDER on 04-13-2022 Lymphocytes Auto (Unsp spec) [#/Vol] 0.72 10*3/uL 0.83-4.51 [facility] Absolute lymphocyte countOrd ered By: Dr. Turner on 04-13-2022 Lymphocytes Auto (Unsp spec) [#/Vol] 0.85 10*3/uL 0.83-4.51 [facility] Basophil percentageOrdered B y: ED PROVIDER on 04-13-2022 Basophils/100 WBC (Bld) 0.4 % 0-1 [facility] Chloride [Moles/Vol] 111 mmol/L 98-107 [facility] Eosinophils/100 WBC (Bld) 0.0 % 0-5 [facility] Glucose [Mass/Vol] 125 mg/dL 74-106 [facility] Comment on above: Fasting Glucose resu lt from 100 to 125 mg/dL suggests IMPAIRED HOMEOSTASIS per A.D.A. criteria. Neutrophils (Bld) [#/Vol] 4.5 10*3/uL 2.0-7.7 [facility] Neutrophils/100 WBC (Bld) 79.4 % 47-70 [facility] Potassium [Moles/Vol] 3.7 mmol/L 3.5-5.1 [facility] Sodium [Moles/Vol] 143 mmol/L 136-145 [facility] WBC (Bld) [#/Vol] 5.7 10*3/uL 4.4-11.0 [facility] Basophil percentageOrdered B y: Dr. Turner on 04-13-2022 Basophils/100 WBC (Bld) 0.3 % 0-1 [facility] Bilirubin [Mass/Vol] 1.80 mg/dL 0.20-1.00 [facility] Comment on above: For patients on eltr ombopag therapy, use of Dimension [place] TBIL is not recommended. Chloride [Moles/Vol] 108 mmol/L 98-107 [facility] Eosinophils/100 WBC (Bld) 0.3 % 0-5 [facility] Glucose [Mass/Vol] 108 mg/dL 74-106 [facility] Comment on above: Fasting Glucose resu lt from 100 to 125 mg/dL suggests IMPAIRED HOMEOSTASIS per A.D.A. criteria. Neutrophils (Bld) [#/Vol] 5.0 10*3/uL 2.0-7.7 [facility] Neutrophils/100 WBC (Bld) 78.6 % 47-70 [facility] Potassium [Moles/Vol] 3.5 mmol/L 3.5-5.1 [facility] Protein [Mass/Vol] 7.4 g/dL 6.4-8.2 [facility] Sodium [Moles/Vol] 143 mmol/L 136-145 [facility] WBC (Bld) [#/Vol] 6.4 10*3/uL 4.4-11.0 [facility] Blood erythrocytes count (nu mber/volume)Ordered By: ED PROVIDER on 04-13-2022 RBC (Bld) [#/Vol] 4.03 10*6/uL 4.6-6.2 [facility] Blood erythrocytes count (nu mber/volume)Ordered By: Dr. Turner on 04-13-2022 RBC (Bld) [#/Vol] 4.35 10*6/uL 4.6-6.2 [facility] Blood hemoglobin measurement (mass/volume)Ordered By: ED PROVIDER on 04-13-2022 Hemoglobin (Bld) [Mass/Vol] 12.8 g/dL 13.0-16.5 [facility] Blood hemoglobin measurement (mass/volume)Ordered By: Dr. Turner on 04-13-2022 Hemoglobin (Bld) [Mass/Vol] 13.9 g/dL 13.0-16.5 [facility] Blood lymphocytes/100 leukoc ytesOrdered By: ED PROVIDER on 04-13-2022 Lymphocytes/100 WBC (Bld) 12.7 % 19-41 [facility] Blood lymphocytes/100 leukoc ytesOrdered By: Dr. Turner on 04-13-2022 Lymphocytes/100 WBC (Bld) 13.3 % 19-41 [facility] Blood manual differential co mment interpretation (narrative result)Ordered By: ED PROVIDER on 04-13-2022 Manual differential comment Piyush (Bld) [Interp] SCANNED [facility] Comment on above: 1+ ANISOCYTOSIS Blood manual differential co mment interpretation (narrative result)Ordered By: Dr. Turner on 04-13-2022 Manual differential comment Piyush (Bld) [Interp] SCANNED [facility] Comment on above: 1+ ANISOCYTOSIS Blood monocytes/100 leukocyt esOrdered By: ED PROVIDER on 04-13-2022 Monocytes/100 WBC (Bld) 7.1 % 0-10 [facility] Blood monocytes/100 leukocyt esOrdered By: Dr. Turner on 04-13-2022 Monocytes/100 WBC (Bld) 7.0 % 0-10 [facility] Blood platelet mean volumeOr dered By: ED PROVIDER on 04-13-2022 Platelet mean volume (Bld) [Entitic vol] 10.8 fL 6.2-12.0 [facility] Blood platelet mean volumeOr dered By: Dr. Turner on 04-13-2022 Platelet mean volume (Bld) [Entitic vol] 11.7 fL 6.2-12.0 [facility] Determination of erythrocyte mean corpuscular volume (MCV)Ordered By: ED PROVIDER on 04-13-2022 MCV (RBC) [Entitic vol] 94.8 fL 80-94 [facility] Determination of erythrocyte mean corpuscular volume (MCV)Ordered By: Dr. Turner on 04-13-2022 MCV (RBC) [Entitic vol] 97.2 fL 80-94 [facility] Hematocrit Auto (Bld) [Volum e fraction]Ordered By: ED PROVIDER on 04-13-2022 Hematocrit (Bld) [Volume fraction] 38.2 % 40-54 [facility] Hematocrit Auto (Bld) [Volum e fraction]Ordered By: Dr. Turner on 04-13-2022 Hematocrit (Bld) [Volume fraction] 42.3 % 40-54 [facility] INR in Blood by Coagulation assayOrdered By: Dr. Dunn on 04-13-2022 INR Coag (Bld) [Relative time] 1.9 {INR} [facility] Laboratory - Chemistry and C hemistry - challengeOrdered By: ED PROVIDER on 04-13-2022 CO2 [Moles/Vol] 25.0 mmol/L 21.0-32.0 [facility] Urea nitrogen/Creatinine [Mass ratio] 7.7 mg/mg 10-20 [facility] - Chemistry and C hemistry - challengeOrdered By: Dr. Turner on 04-13-2022 Natriuretic peptide B (Bld) [Mass/Vol] 699.0 pg/mL 0-100 [facility] ALP [Catalytic activity/Vol] 83 U/L 45-117 [facility] ALT [Catalytic activity/Vol] 48 U/L 16-61 [facility] CO2 [Moles/Vol] 27.0 mmol/L 21.0-32.0 [facility] Globulin (S) [Mass/Vol] 4.0 g/dL 2.2-4.2 [facility] Urea nitrogen/Creatinine [Mass ratio] 7.3 mg/mg 10-20 [facility] Laboratory - CoagulationOrde red By: Dr. Dunn on 04-13-2022 PT Coag (PPP) [Time] 21.7 s 11.7-14.9 [facility] - Hematology and Cell countsOrdered By: ED PROVIDER on 04-13-2022 Erythrocyte distribution width (RBC) [Entitic vol] 69.1 fL 35.1-43.9 [facility] Erythrocyte distribution width (RBC) [Ratio] 20.2 % 11.6-14.6 [facility] Immature granulocytes/100 WBC (Bld) 0.400 % 0.0-0.9 [facility] Comment on above: IG% - Immature Granu locytes (promyelocytes, myelocytes and metamyelocytes) > 1% indicates that a LEFT SHIFT is Present. MCH (RBC) [Entitic mass] 31.8 pg 27.0-32.0 [facility] Nucleated RBC/100 WBC (Bld) [Ratio] 1.8 % 0-5 [facility] - Hematology and Cell countsOrdered By: Dr. Turner on 04-13-2022 Erythrocyte distribution width (RBC) [Entitic vol] 71.7 fL 35.1-43.9 [facility] Erythrocyte distribution width (RBC) [Ratio] 20.5 % 11.6-14.6 [facility] Immature granulocytes/100 WBC (Bld) 0.500 % 0.0-0.9 [facility] Comment on above: IG% - Immature Granu locytes (promyelocytes, myelocytes and metamyelocytes) > 1% indicates that a LEFT SHIFT is Present. MCH (RBC) [Entitic mass] 32.0 pg 27.0-32.0 [facility] Nucleated RBC/100 WBC (Bld) [Ratio] 1.1 % 0-5 [facility] MCHC Auto (RBC) [Mass/Vol]Or dered By: ED PROVIDER on 04-13-2022 MCHC (RBC) [Mass/Vol] 33.5 g/dL 32-36 [facility] MCHC Auto (RBC) [Mass/Vol]Or dered By: Dr. Turner on 04-13-2022 MCHC (RBC) [Mass/Vol] 32.9 g/dL 32-36 [facility] No Panel InformationOrdered By: ED PROVIDER on 04-13-2022 Estimated Creatinine Clearance Calc 44.21 ml/min [facility] Estimated GFR (MDRD) Amer 46 mL/min >60 [facility] Comment on above: GFR Calc Estimated GFR (MDRD) Non-Af Amer 38 mL/min >60 [facility] Comment on above: Non- GFR Calc No Panel InformationOrdered By: Dr. Turner on 04-13-2022 Estimated GFR (MDRD) Amer 46 mL/min >60 [facility] Comment on above: GFR Calc Estimated GFR (MDRD) Non-Af Amer 38 mL/min >60 [facility] Comment on above: Non- GFR Calc Troponin I High Sensitivity 118 pg/mL 3.0-78.0 [facility] Comment on above: Please Note: [place] t Units and Gender Specific Reference Ranges. For more information see Policy Stat Procedure [place] High Sensitivity Troponin (TNIH) and attachments. Platelets bldOrdered By: ED PROVIDER on 04-13-2022 Platelets (Bld) [#/Vol] 197 10*3/uL 150-450 [facility] Platelets bldOrdered By: Dr. Turner on 04-13-2022 Platelets (Bld) [#/Vol] 222 10*3/uL 150-450 [facility] Serum or plasma albumin cory urement (mass/volume)Ordered By: Dr. Turner on 04-13-2022 Albumin [Mass/Vol] 3.4 g/dL 3.2-5.0 [facility] Serum or plasma albumin/glob ulin mass ratioOrdered By: Dr. Turner on 04-13-2022 Albumin/Globulin [Mass ratio] 0.8 {ratio} 0.9-2.4 [facility] Serum or plasma calcium cory urement (mass/volume)Ordered By: ED PROVIDER on 04-13-2022 Calcium [Mass/Vol] 9.0 mg/dL 8.5-10.1 [facility] Serum or plasma calcium cory urement (mass/volume)Ordered By: Dr. Turner on 04-13-2022 Calcium [Mass/Vol] 9.4 mg/dL 8.5-10.1 [facility] Serum or plasma creatinine m easurement (mass/volume)Ordered By: ED PROVIDER on 04-13-2022 Creatinine [Mass/Vol] 1.94 mg/dL 0.70-1.30 [facility] Comment on above: The validity of the calculated GFR & GFRAA in patients over 70 years has not been determined. Clinical correlation is essential. Serum or plasma creatinine m easurement (mass/volume)Ordered By: Dr. Turner on 04-13-2022 Creatinine [Mass/Vol] 1.93 mg/dL 0.70-1.30 [facility] Comment on above: The validity of the calculated GFR & GFRAA in patients over 70 years has not been determined. Clinical correlation is essential. Serum or plasma urea nitroge n measurement (mass/volume)Ordered By: ED PROVIDER on 04-13-2022 Urea nitrogen [Mass/Vol] 15 mg/dL 09-22 [facility] Serum or plasma urea nitroge n measurement (mass/volume)Ordered By: Dr. Turner on 04-13-2022 Urea nitrogen [Mass/Vol] 14 mg/dL 09-22 [facility] Thin prep Papanicolaou smear with manual screeningOrdered By: ED PROVIDER on 04-13-2022 Thin prep Papanicolaou smear with manual screening 7 07-20 [facility] Thin prep Papanicolaou smear with manual screeningOrdered By: Dr. Turner on 04-13-2022 Thin prep Papanicolaou smear with manual screening 41 U/L 15 [facility] Thin prep Papanicolaou smear with manual screening 8 07-20 [facility] CBC W Auto Differential pane l (Bld)on 04-09-2022 Basophils (Bld) [#/Vol] 10*3/uL Normal <0.11 [facility] Comment on above: Order Comment: Speci men Type: BLOOD SPECIMENOrdering Facility: [facility] Address: [address] [place] [id number] Performed By: #### 5 7021-8 ####[facility] LABCLIA [id number] [address] [place] Basophils/100 WBC (Bld) 0.3 % Normal [facility] Comment on above: Order Comment: Speci men Type: BLOOD SPECIMENOrdering Facility: [facility] Address: [address] [address] Performed By: #### 5 7021-8 ####[facility] LABCLIA [id number] [facility] [address] [place] [address] OF [place] Differential cell count method Nom (Bld) Auto Normal [facility] Comment on above: Order Comment: Speci men Type: BLOOD SPECIMENOrdering Facility: [facility] Address: [address] [address] Performed By: #### 5 7021-8 ####[facility] LABCLIA [id number] [facility] [address] [place] [address] [place] Eosinophils (Bld) [#/Vol] 0.04 10*3/uL Normal <0.46 [facility] Comment on above: Order Comment: Speci men Type: BLOOD SPECIMENOrdering Facility: [facility] Address: [address] [address] Performed By: #### 5 7021-8 ####[facility] LABCLIA [id number] [address] OF [place] Eosinophils/100 WBC (Bld) 0.7 % Normal [facility] Comment on above: Order Comment: Speci men Type: BLOOD SPECIMENOrdering Facility: [facility] Address: [address] [place] [address] Performed By: #### 5 7021-8 ####[facility] LABCLIA [id number] [facility] [address] [place] [address] [place] Erythrocyte distribution width (RBC) [Ratio] 19.2 % High 11.5-15.0 [facility] Comment on above: Order Comment: Speci men Type: BLOOD SPECIMENOrdering Facility: [facility] Address: [address] [place] [address] Performed By: #### 5 7021-8 ####[facility] LABCLIA [id number] [place] [address] [place] Hematocrit (Bld) [Volume fraction] 42.1 % Normal 39.0-51.0 [facility] Comment on above: Order Comment: Speci men Type: BLOOD SPECIMENOrdering Facility: [facility] Address: [address] [place] [address] Performed By: #### 5 7021-8 ####[facility] LABCLIA [id number] [place] [address] [place] Hemoglobin (Bld) [Mass/Vol] 14.5 g/dL Normal 13.0-17.0 [facility] Comment on above: Order Comment: Speci men Type: BLOOD SPECIMENOrdering Facility: [facility] Address: [address] [place] [address] Performed By: #### 5 7021-8 ####[facility] LABCLIA [id number] [place] [address] [place] Immature granulocytes (Bld) [#/Vol] 0.03 10*3/uL Normal <0.10 [facility] Comment on above: Order Comment: Speci men Type: BLOOD SPECIMENOrdering Facility: [facility] Address: [address] [place] [address] Performed By: #### 5 7021-8 ####[facility] LABCLIA [id number] [place] [address] [place] Immature granulocytes/100 WBC (Bld) 0.5 % Normal [facility] Comment on above: Order Comment: Speci men Type: BLOOD SPECIMENOrdering Facility: [facility] Address: [address] [place] [address] Performed By: #### 5 7021-8 ####[facility] LABCLIA [id number] [place] [address] [place] Lymphocytes (Bld) [#/Vol] 1.09 10*3/uL Normal 1.00-4.00 [facility] Comment on above: Order Comment: Speci men Type: BLOOD SPECIMENOrdering Facility: [facility] Address: [address] [address] Performed By: #### 5 7021-8 ####[facility] LABCLIA [id number] [address] Lymphocytes/100 WBC (Bld) 18.7 % Normal [facility] Comment on above: Order Comment: Speci men Type: BLOOD SPECIMENOrdering Facility: [facility] Address: [address] [address] Performed By: #### 5 7021-8 ####[facility] LABCLIA [id number] [address] [place] MCH (RBC) [Entitic mass] 32.2 pg Normal 26.0-34.0 [facility] Comment on above: Order Comment: Speci men Type: BLOOD SPECIMENOrdering Facility: [facility] Address: [address] [place] [address] Performed By: #### 5 7021-8 ####[facility] LABCLIA [id number] [address] [place] MCHC (RBC) [Mass/Vol] 34.4 g/dL Normal 30.5-36.0 [facility] Comment on above: Order Comment: Speci men Type: BLOOD SPECIMENOrdering Facility: [facility] Address: [address] [address] Performed By: #### 5 7021-8 ####[facility] LABCLIA [id number] [place] [address] [place] MCV (RBC) [Entitic vol] 93.3 fL Normal 80.0-100.0 [facility] Comment on above: Order Comment: Speci men Type: BLOOD SPECIMENOrdering Facility: [facility] Address: [address] [place] [address] Performed By: #### 5 7021-8 ####[facility] LABCLIA [id number] [place] [address] [place] Monocytes (Bld) [#/Vol] 0.45 10*3/uL Normal <0.87 [facility] Comment on above: Order Comment: Speci men Type: BLOOD SPECIMENOrdering Facility: [facility] Address: [address] [place] [address] Performed By: #### 5 7021-8 ####[facility] LABCLIA [id number] [place] [address] [place] Monocytes/100 WBC (Bld) 7.7 % Normal [facility] Comment on above: Order Comment: Speci men Type: BLOOD SPECIMENOrdering Facility: [facility] Address: [address] [place] [address] Performed By: #### 5 7021-8 ####[facility] LABCLIA [id number] [place] [address] [place] Neutrophils (Bld) [#/Vol] 4.20 10*3/uL Normal 1.45-7.50 [facility] Comment on above: Order Comment: Speci men Type: BLOOD SPECIMENOrdering Facility: [facility] Address: [address] [place] [address] Performed By: #### 5 7021-8 ####[facility] LABCLIA [id number] [place] [address] [place] Neutrophils/100 WBC (Bld) 72.1 % Normal [facility] Comment on above: Order Comment: Speci men Type: BLOOD SPECIMENOrdering Facility: [facility] Address: [address] [place] [address] Performed By: #### 5 7021-8 ####[facility] LABCLIA [id number] [place] [address] [place] Platelet mean volume (Bld) [Entitic vol] 10.4 fL Normal 9.0-12.7 [facility] Comment on above: Order Comment: Speci men Type: BLOOD SPECIMENOrdering Facility: [facility] Address: [address] [address] Performed By: #### 5 7021-8 ####[facility] LABCLIA [id number] [address] Platelets (Bld) [#/Vol] 219 10*3/uL Normal 150-400 [facility] Comment on above: Order Comment: Speci men Type: BLOOD SPECIMENOrdering Facility: [facility] Address: [address] [place] [address] Performed By: #### 5 7021-8 ####[facility] LABCLIA [id number] [address] RBC (Bld) [#/Vol] 4.51 10*6/uL Normal 4.20-6.00 [facility] Comment on above: Order Comment: Speci men Type: BLOOD SPECIMENOrdering Facility: [facility] Address: [address] [place] [address] Performed By: #### 5 7021-8 ####[facility] LABCLIA [id number] [address] OF [place] WBC (Bld) [#/Vol] 5.83 10*3/uL Normal 3.70-11.00 [facility] Comment on above: Order Comment: Speci men Type: BLOOD SPECIMENOrdering Facility: [facility] Address: [address] [place] [address] Performed By: #### 5 7021-8 ####[facility] LABCLIA [id number] [address] OF [place] CNOVSPon 04-09-2022 CNOVSP Visit (SP) Office [facility] ----- YEFRI YANEZ ([id number]) [address] [facility] Date Time Provider Department 04/09/22 11:00 AM HAYLEE WILBURN [facility] During your visit today, we recorded the following information about you: Temperature Pulse Respiration Blood pressure 98.1 degrees 116/minute 16/minute 163/86 Weight 124.3 kg Haylee Wilburn MD 04/09/2022 4:21 PM Signed [facility] Progress Note SERVICE DATE: April 09, 2022 ONCOLOGIC HISTORY: Yefri Yanez is a 56 year old male diagnosed with metastatic renal cell ca diagnosed in June 2021. 06/2021: Presented with syncopal episode. 06/17/21: CT: a large soft tissue mass in the anterolateral right chest wall likely arising in the right sixth rib measuring 8.9 x 5.6 cm and 7.4cm R renal mass and L4 destructive soft tissue mass. 06/30/21: Bone scan showed focal increased tracer uptake are demonstrated in the L4, right lateral sixth rib. 07/01/21: Biopsy of R chest wall mass showing metastatic renal cell carcinoma 08/08/21: Started Cabo and Nivo on Cyto-KIK; TRIAL (CYTO reductive surgery in Kidney cancer plus Immunotherapy (nivolumab) and targeted Kinase inhibition (cabozantinib) 08/18/21, cabo held due to worse HTN. 09/11/21, Nivo held due to pneumonitis. 10/2021, Due to insurance change, he was taken off the trial. 11/2021, he resumed Cabo 20 mg daily. 12/26/21, completed palliative XRT to L3-L5, 2,000 cGy in 5 fx. 02/06/22, Da Farzad assisted robotic right radical nephrectomy. 03/29/22, CT showed interval decrease in size right 6th rib expansile metastasis. Decrease in size of lytic metastasis centered in L4. New new lesions. HISTORY OF PRESENT ILLNESS: Mr. Yefri Yanez is a 56 year old male found accidentally in 06/2021 to have a R renal mass, R rib lesion, and L4 lesion. Soft tissue/right chest wall mass biopsy from 07/01/2021 showed metastatic RCC. He started treatment with cabo + nivo on [facility] 1820 Trial on 08/08/2021 at [facility]. He has baseline HTN and developed worsening HTN after starting treatment. His cabo was held on 08/18/2021, resumed on 09/11/2021. The Nivo was held on 09/11/21 due to pneumonitis, and prednisone 60 mg daily was started and tapered off within about one month. Due to insurance change, he was taken off the trial and referred to [facility]. All treatments were supposed to be held until after surgery. He was initially scheduled to have nephrectomy on 11/04/21, but delayed due to his back pain. He underwent palliative XRT to L3-L5 (2,000 cGy in 5 fx), completed 12/26/21). Later on his surgery was postponed several times due to insurance. Eventually he underwent Da Farzad assisted robotic right radical nephrectomy by Dr. Aravind Hernandez at [facility] in [facility] on 02/06/2022. PATHOLOGY: -Renal cell carcinoma, clear-cell type, 5.3 x 3.0 x 2.7 cm, ISUP nuclear grade 3. -Carcinoma invades renal vein and lurdes-nephritic adipose tissue. -Margins of resection are negative for carcinoma. -Lymphovascular invasion not identified. -Regional lymph nodes not submitted. -[id number]. HISTORY OF PRESENT ILLNESS: As a matter of fact, patient has been taking single agent Cabo 20 mg daily since November 2021, even though he was supposed to wait until after surgery. Overall he has tolerated this medication well without any problems. Cabo was held during surgery, resumed postoperatively. His blood pressure has been within normal range. Clinically, he has been doing well other than chronic fatigue. He does not sleep well at night. 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 He denies pain in the chest wall or back. He denies syncope, seizure, headaches, blurred vision. He wants to go back to work part-time because he is bored at home. Current Outpatient Medications Medication Sig Dispense Refill furosemide (LASIX) 40 mg tablet Take 1 tablet by mouth once daily. torsemide (DEMADEX) 20 mg tablet Take 2 tablets by mouth once daily. TAKE 2 TABLETS BY MOUTH TO EQUAL 40 MG ONCE PER DAY 180 tablet 1 amLODIPine (NORVASC) 10 mg tablet albuterol (PROVENTIL) 2.5 mg /3 mL (0.083 %) nebulizer solution carvedilol (COREG) 12.5 mg tablet once daily. losartan (COZAAR) 50 mg tablet lovastatin (MEVACOR) 20 mg tablet daily at bedtime. TRELEGY ELLIPTA 100-62.5-25 mcg inhalation powder spironolactone (ALDACTONE) 25 mg tablet Take 0.5 tablets by mouth once daily. 30 tablet 2 warfarin (COUMADIN) 5 mg tablet Take 1 tablet by mouth once daily. (Patient taking differently: Take 7 mg by mouth once daily. 7mg per patient 6-7 mg it changes at times) 30 tablet 2 rosuvastatin (CRESTOR) 40 mg tablet Take 1 tablet by mouth once daily. 90 tablet 3 albuterol HFA (PROVENTIL HFA, VENTOLIN HFA) 90 mcg/actuation inhaler Inhale 2 Puffs as instructed every 4 hours as needed for wheezing/shortness of breath. 1 Inhaler 0 ferrous sulf (more content not included)... Normal [facility] Comprehensive metabolic 2000 panelon 04-09-2022 Albumin [Mass/Vol] 3.5 g/dL Normal 3.2-5.0 [facility] Comment on above: Order Comment: Speci men Type: BLOOD SPECIMENOrdering Facility: [facility] Address: [address] [phone] Performed By: #### 2 4323-8, 3016-3 ####[facility] LABORATORYCLIA [id number] [address] [place] [facility] ALP [Catalytic activity/Vol] 86 U/L Normal 45-117 [facility] Comment on above: Order Comment: Speci men Type: BLOOD SPECIMENOrdering Facility: [facility] Address: [address] [phone] Performed By: #### 2 4323-8, 6-3 ####[facility] LABORATORYCLIA [id number] [address] [place] ALT [Catalytic activity/Vol] 45 U/L Normal 13-61 [facility] Comment on above: Order Comment: Speci men Type: BLOOD SPECIMENOrdering Facility: [facility] Address: [address] [phone] Result Comment: Resu lts may be falsely depressed after the administration of Sulfasalazine and/or Sulfapyridine. Performed By: #### 2 4323-8, 3015-3 ####[facility] LABORATORYCLIA [id number] [place] [address] [place] Anion gap [Moles/Vol] 6 mmol/L Normal 5-16 [facility] Comment on above: Order Comment: Speci men Type: BLOOD SPECIMENOrdering Facility: [facility] Address: [address] [place] [address] Performed By: #### 2 4323-8, 3 ####[facility] LABORATORYCLIA [id number] [address] [place] AST [Catalytic activity/Vol] 40 U/L High 8-34 [facility] Comment on above: Order Comment: Speci men Type: BLOOD SPECIMENOrdering Facility: [facility] Address: [address] [place] [address] Result Comment: Resu lts may be falsely depressed after the administration of Sulfasalazine and/or Sulfapyridine. Performed By: #### 2 4323-8, 3 ####[facility] LABORATORYCLIA [id number] [place] [address] [place] Bilirubin [Mass/Vol] 0.5 mg/dL Normal 0.2-1.0 [facility] Comment on above: Order Comment: Speci men Type: BLOOD SPECIMENOrdering Facility: [facility] Address: [address] [place] [address] Performed By: #### 2 4323-8, 3015-3 ####[facility] LABORATORYCLIA [id number] [place] [address] [place] Calcium [Mass/Vol] 9.5 mg/dL Normal 8.5-10.5 [facility] Comment on above: Order Comment: Speci men Type: BLOOD SPECIMENOrdering Facility: [facility] Address: [address] [place] [address] Performed By: #### 2 4323-8, 3016-3 ####[facility] LABORATORYCLIA [id number] [place] [address] [place] Chloride [Moles/Vol] 106 mmol/L Normal 98-107 [facility] Comment on above: Order Comment: Speci men Type: BLOOD SPECIMENOrdering Facility: [facility] Address: [address] [place] [address] Performed By: #### 2 4323-8, 3015-3 ####[facility] LABORATORYCLIA [id number] [place] [address] [place] CO2 [Moles/Vol] 30 mmol/L Normal 21-32 [facility] Comment on above: Order Comment: Speci men Type: BLOOD SPECIMENOrdering Facility: [facility] Address: [address] [place] [address] Performed By: #### 2 4323-8, 3015-3 ####[facility] LABORATORYCLIA [id number] [place] [address] [place] Creatinine [Mass/Vol] 1.57 mg/dL High 0.50-1.40 [facility] Comment on above: Order Comment: Speci men Type: BLOOD SPECIMENOrdering Facility: [facility] Address: [address] [place] [address] Result Comment: Hyun ents receiving either N-Acetylcysteine (NAC) or Metamizole prior to venipuncture, may have falsely depressed results. Performed By: #### 2 4323-8, 3015-3 ####[facility] LABORATORYCLIA [id number] [place] [address] [place] ESTIMATED GLOMERULAR FILTRATION RATE 51 mL/min/1.73m??? Low >=60 [facility] Comment on above: Order Comment: Speci men Type: BLOOD SPECIMENOrdering Facility: [facility] Address: [address] [place] [address] Result Comment: Laurita mated Glomerular Filtration Rate (eGFR) is calculated using the 2020 CKD-EPI creatinine equation. This equation utilizes serum creatinine, sex, and age as parameters. The creatinine assay has traceable calibration to isotope dilution-mass spectrometry. Refer to KDIGO guidelines for clinical interpretation. In patients with unstable renal function, e.g. those with acute kidney injury, the eGFR may not accurately reflect actual GFR. Performed By: #### 2 4323-8, 3015-3 ####[facility] LABORATORYCLIA [id number] [place] [address] [place] Glucose [Mass/Vol] 132 mg/dL High 70-100 [facility] Comment on above: Order Comment: Aaliyah gibson Type: BLOOD SPECIMENOrdering Facility: [facility] Address: [address] [place] [address] Result Comment: The [place] [employer] (ADA) provides guidance for cutoff values for fasting glucose and random glucose. The ADA defines fasting as no caloric intake for at least 8 hours. Fasting plasma glucose results between 100 to 125 mg/dL indicate increased risk for diabetes (prediabetes). Fasting plasma glucose results greater than or equal to 126 mg/dL meet the criteria for diagnosis of diabetes. In the absence of unequivocal hyperglycemia, results should be confirmed by repeat testing. In a patient with classic symptoms of hyperglycemia or hyperglycemic crisis, random plasma glucose results greater than or equal to 200 mg/dL meet the criteria for diagnosis of diabetes. Reference: Standards of Medical Care in Diabetes 2016, [place] [employer]. Diabetes Care. 2016.39(Suppl 1). Results may be falsely elevated after the administration of Sulfapyridine. Results may be falsely depressed after the administration of Sulfasalazine. Performed By: #### 2 4323-8, 3 ####[facility] LABORATORYCLIA [id number] [address] [id number] [place] Potassium [Moles/Vol] 3.7 mmol/L Normal 3.5-5.1 [facility] Comment on above: Order Comment: Aaliyah gibson Type: BLOOD SPECIMENOrdering Facility: [facility] Address: [address] [place] [address] Performed By: #### 2 4323-8, 3015-3 ####[facility] LABORATORYCLIA [id number] [place] [address] [place] Protein [Mass/Vol] 6.7 g/dL Normal 6.0-8.5 [facility] Comment on above: Order Comment: Speci men Type: BLOOD SPECIMENOrdering Facility: [facility] Address: [address] [address] Performed By: #### 2 4323-8, 3015-3 ####[facility] LABORATORYCLIA [id number] [place] [address] [place] Sodium [Moles/Vol] 142 mmol/L Normal 136-145 [facility] Comment on above: Order Comment: Speci men Type: BLOOD SPECIMENOrdering Facility: [facility] Address: [address] [place] [address] Performed By: #### 2 4323-8, 3 ####[facility] LABORATORYCLIA [id number] [address] Urea nitrogen [Mass/Vol] 17 mg/dL Normal 7-26 [facility] Comment on above: Order Comment: Speci men Type: BLOOD SPECIMENOrdering Facility: [facility] Address: [address] [place] [address] Performed By: #### 2 4323-8, 3 ####[facility] LABORATORYCLIA [id number] [address] [place] TSH SerPl-aCncon 04-09-2022 TSH Qn 2.848 m[IU]/L Normal 0.358-3.74 0 [facility] Comment on above: Order Comment: Speci men Type: BLOOD SPECIMENOrdering Facility: [facility] Address: [address] [place] [address] Result Comment: 3rd generation ultra sensitive TSH. Performed By: #### 2 4323-8, 3015-3 ####[facility] LABORATORYCLIA [id number] [address] Office Visit (Urology)on Follow-up visit Diagnoses/Problems Assessed Metastatic renal cell carcinoma (189.0,199.1) (C64.9) Provider Impressions 57-year-old male referred to pr for cytoreductive nephrectomy Referred by Dr. Adriana Hodge Complex oncologic history, please see scanned in records in the referral/consult letter section. PMH: NIMCO on CPAP, hypertension, GERD, hyperlipidemia, prediabetes (A1c low, 6%), A. fib on AC PSH: No prior abdominal surgery BMI 35.4 Long history of cigar smoking, 40+ years. 06/2021 -presented to Dr. Hodge's clinic for evaluation of a 7 cm right renal mass with metastatic lesions x2-right fifth rib metastasis and L4 metastasis. Metastases were impressive in size, right rib lesion approximately 10 cm, L4 lesion 6.8 cm. PSA 0.66, creatinine 1.12 GFR 77, LFTs WNL, hemoglobin 15.6 Chest wall biopsy: Clear-cell RCC Patient was referred to medical oncology, received Cabo/Nivo. Developed pneumonitis and therefore Nivo was held. Due to inability to tolerate I/O, multidisciplinary plan developed between urology, medical oncology, radiation oncology at [facility] was local therapy to metastatic sites and cytoreductive nephrectomy. 12/08/2021-echo with EF 35%, LV and RV enlargement and hypokinesis 12/26/2021-patient completed radiation to chest wall and L4 lesion Patient has remained on cabo Patient was scheduled for nephrectomy with Dr. Adriana Hodge, due to insurance issues patient could not be operated on at [facility], referred to pr for nephrectomy. 01/19/2022-patient scheduled for laparoscopic nephrectomy 02/0301/20/2022-patient presented to [facility] with shortness of breath 01/27/2022-patient presented to [facility] with persistence of subjective dyspnea, expiratory wheezing 01/29/2022-patient represented to [facility] ED with chest tightness and shortness of breath. Diagnosed with CHF and pneumonia. He was prescribed cefdinir 300 mg p.o. twice daily x7 days, Lasix 40 mg daily p.o. for 14 days. 02/02/2022-canceled nephrectomy for 02/03. Called patient to discuss, subjectively feels back to baseline following diuresis and antibiotics. OR 02/06/2022-uncomplicated laparoscopic nephrectomy. EBL 75 cc. Creatinine 1.48, GFR 54 Pathology-renal cell carcinoma, 5.3 cm, grade 3, invades renal vein, perihilar, tissue. Margins negative. pT3aNx known metastatic disease. Follow-up 04/03/2022-doing very well postoperatively. No postoperative pain. He reports his subjective dyspnea that he was having preoperatively has improved somewhat. No excessive fatigue. Appetite is normal. Normal bowel function. #Metastatic renal cell carcinoma-s/p cytoreductive nephrectomy, radiation to to metastatic sites, currently on Cabo -Patient follows with Dr. Wilburn oncology, will send records today -Patient also follows with Dr. Turner [facility], sending records -Follow-up CT scans per Dr. Wilburn -Labs with Dr. Wilburn as well, renal function was good on discharge from hospital -Follow-up with me in 3 months Chief Complaint Metastatic kidney cancer History of Present [id number] male referred to me for cytoreductive nephrectomy Referred by Dr. Adriana Hodge Complex oncologic history, please see scanned in records in the referral/consult letter section. PMH: NIMCO on CPAP, hypertension, GERD, hyperlipidemia, prediabetes (A1c low, 6%), A. fib on AC PSH: No prior abdominal surgery BMI 35.4 Long history of cigar smoking, 40+ years. 06/2021 -presented to Dr. Hodge's clinic for evaluation of a 7 cm right renal mass with metastatic lesions x2-right fifth rib metastasis and L4 metastasis. Metastases were impressive in size, right rib lesion approximately 10 cm, L4 lesion 6.8 cm. PSA 0.66, creatinine 1.12 GFR 77, LFTs WNL, hemoglobin 15.6 Chest wall biopsy: Clear-cell RCC Patient was referred to medical oncology, received Cabo/Nivo. Developed pneumonitis and therefore Nivo was held. Due to inability to tolerate I/O, multidisciplinary plan developed between urology, medical oncology, radiation oncology at [facility] was local therapy to metastatic sites and cytoreductive nephrectomy. 12/08/2021-echo with EF 35%, LV and RV enlargement and hypokinesis 12/26/2021-patient completed radiation to chest wall and L4 lesion Patient has remained on cabo Patient was scheduled for nephrectomy with Dr. Adriana Hodge, due to insurance issues patient could not be operated on at [facility], referred to pr for nephrectomy. 01/19/2022-patient scheduled for laparoscopic nephrectomy 02/0301/20/2022-patient presented to [facility] with shortness of breath 01/27/2022-patient presented to [facility] with persistence of subjective dyspnea, expiratory wheezing 01/29/2022-patient represented to [facility] ED with chest tightness and shortness of breath. Diagnosed with CHF and pneumonia. He was prescribed cefdinir 300 mg p.o. twice daily x7 days, Lasix 40 mg daily p.o. for 14 days. 02/02/2022-canceled nephrectomy for 02/03. Called patient to discuss, subjectively feels back to baseline follow (more content not included)... Normal [employer] CNPNon 04-02-2022 [facility] Telephone ([facility] ----- YEFRI YANEZ ([id number]) [address] [facility] Date Time Provider Department 04/02/22 AMERICA SCHWARTZ [facility] During your visit today, we recorded the following information about you: Octavio Schwartz RN 04/02/2022 10:59 AM Signed Called patient and in regards to missed office visit with Dr. Wilburn, and immunotherapy appointment. No answer left messages for patient to call and reschedule. America Schwartz RN, BSN, OCN Allergies As of Date: 04/02/2022 Noted Allergy Reaction LISINOPRIL 09/01/2012 18 - Angioedema SHELLFISH CONTAINING PRODUCTS 06/04/2019 10 - Anaphylaxis 4 - Hives ASPIRIN 07/21/2004 5 - Intolerance MUSHROOM 08/05/2021 4 - Hives PENICILLINS 11/01/2003 5 - Intolerance Date Reviewed: 03/11/2022 Reviewed by: Bernarda Kee MA - Fully Assessed Reason for Visit: Appointment [186] Prescriptions as of 04/02/2022 - axitinib (INLYTA) 5 mg tablet Take 1 tablet (5 mg) by mouth every 12 hours. - furosemide (LASIX) 40 mg tablet Take 1 tablet by mouth once daily. - torsemide (DEMADEX) 20 mg tablet Take 2 tablets by mouth once daily. TAKE 2 TABLETS BY MOUTH TO EQUAL 40 MG ONCE PER DAY - amLODIPine (NORVASC) 10 mg tablet - albuterol (PROVENTIL) 2.5 mg /3 mL (0.083 %) nebulizer solution - carvedilol (COREG) 12.5 mg tablet once daily. - warfarin (COUMADIN) 1 mg tablet - warfarin (COUMADIN) 2 mg tablet - warfarin (COUMADIN) 3 mg tablet - polyethylene glycol 3350 (MIRALAX, GLYCOLAX) 17 gram/dose powder - oxyCODONE IR (ROXICODONE) 5 mg immediate release tablet - losartan (COZAAR) 50 mg tablet - lovastatin (MEVACOR) 20 mg tablet daily at bedtime. - TRELEGY ELLIPTA 100-62.5-25 mcg inhalation powder - spironolactone (ALDACTONE) 25 mg tablet Take 0.5 tablets by mouth once daily. - warfarin (COUMADIN) 5 mg tablet Take 1 tablet by mouth once daily. - rosuvastatin (CRESTOR) 40 mg tablet Take 1 tablet by mouth once daily. - albuterol HFA (PROVENTIL HFA, VENTOLIN HFA) 90 mcg/actuation inhaler Inhale 2 Puffs as instructed every 4 hours as needed for wheezing/shortness of breath. - ferrous sulfate 325 mg (65 mg iron) tablet TAKE 1 TABLET BY MOUTH TWICE A DAY - cyclobenzaprine (FLEXERIL) 10 mg tablet Take by mouth three times daily as needed for muscle spasm. - acetaminophen (TYLENOL EXTRA STRENGTH) 500 mg tablet Take 2 tablets by mouth every 6 hours as needed for pain. - pantoprazole DR (PROTONIX) 40 mg tablet Take 1 tablet by mouth once daily. Facility-Administered Medications as of 04/02/2022 - perflutren lipid microspheres 1.3 mL in NaCl (PF) 0.9% 10 mL injection (DEFINITY) - sodium chloride 0.9 % (flush) 10 mL (BD POSIFLUSH) Meds Comments as of 09/29/2021: 09/29/21 The medications are managed by this patient by: [facility] Safia Carr, [facility], located [facility] Problem List As Of Date 04/02/2022 Noted Resolved BENIGN HYPERTENSION [I10] 06/30/2004 03/12/2008 HLD (hyperlipidemia) [E78.5] 06/30/2004 ROUTINE MEDICAL EXAM [Z00.00] 06/30/2004 11/26/2014 Disturbance in sleep behavior [G47.9] 06/30/2004 CHEST PAIN NOS [R07.9] 06/30/2004 11/26/2014 ALLERGIC RHINITIS NOS [J30.9] 06/30/2004 JOINT PAIN-SHLDER [M25.519] 06/04/2006 Essential hypertension [I10] 03/12/2008 ESOPHAGEAL REFLUX [K21.9] 03/12/2008 TOBACCO USE DISORDER [F17.200] 03/12/2008 NIMCO (obstructive sleep apnea) [G47.33] 11/15/2019 History of seizure [Z87.898] 11/15/2019 Class 2 obesity due to excess calories without *11/15/2019 Renal cell carcinoma of right kidney (HCC) [C64*07/23/2021 Metastatic renal cell carcinoma (HCC) [C64.9] 07/24/2021 New onset a-fib (HCC) [I48.91] 09/02/2021 Nonrheumatic mitral valve regurgitation [I34.0] 09/04/2021 Acute decompensated heart failure (HCC) [I50.9] 09/22/2021 Prediabetes [R73.03] 10/27/2021 CAD (coronary artery disease) [I25.10] 10/27/2021 Encounter Status:Closed by AMERICA SCHWARTZ on 04/02/22 [facility] CNPN Telephone ([facility]) ----- YEFRI YANEZ ([id number]) [address] [facility] Date Time Provider Department 04/02/22 HAYLEE WILBURN [facility] During your visit today, we recorded the following information about you: Donavon Eastman 04/02/2022 11:02 AM Signed Patient did not show for appointment with , left message to call office put on recall Donavon Eastman' Allergies As of Date: 04/02/2022 Noted Allergy Reaction LISINOPRIL 09/01/2012 18 - Angioedema SHELLFISH CONTAINING PRODUCTS 06/04/2019 10 - Anaphylaxis 4 - Hives ASPIRIN 07/21/2004 5 - Intolerance MUSHROOM 08/05/2021 4 - Hives PENICILLINS 11/01/2003 5 - Intolerance Date Reviewed: 03/11/2022 Reviewed by: Bernarda Kee MA - Fully Assessed Reason for Visit: Appointment [186] Cmt: No show Prescriptions as of 04/02/2022 - axitinib (INLYTA) 5 mg tablet Take 1 tablet (5 mg) by mouth every 12 hours. - furosemide (LASIX) 40 mg tablet Take 1 tablet by mouth once daily. - torsemide (DEMADEX) 20 mg tablet Take 2 tablets by mouth once daily. TAKE 2 TABLETS BY MOUTH TO EQUAL 40 MG ONCE PER DAY - amLODIPine (NORVASC) 10 mg tablet - albuterol (PROVENTIL) 2.5 mg /3 mL (0.083 %) nebulizer solution - carvedilol (COREG) 12.5 mg tablet once daily. - warfarin (COUMADIN) 1 mg tablet - warfarin (COUMADIN) 2 mg tablet - warfarin (COUMADIN) 3 mg tablet - polyethylene glycol 3350 (MIRALAX, GLYCOLAX) 17 gram/dose powder - oxyCODONE IR (ROXICODONE) 5 mg immediate release tablet - losartan (COZAAR) 50 mg tablet - lovastatin (MEVACOR) 20 mg tablet daily at bedtime. - TRELEGY ELLIPTA 100-62.5-25 mcg inhalation powder - spironolactone (ALDACTONE) 25 mg tablet Take 0.5 tablets by mouth once daily. - warfarin (COUMADIN) 5 mg tablet Take 1 tablet by mouth once daily. - rosuvastatin (CRESTOR) 40 mg tablet Take 1 tablet by mouth once daily. - albuterol HFA (PROVENTIL HFA, VENTOLIN HFA) 90 mcg/actuation inhaler Inhale 2 Puffs as instructed every 4 hours as needed for wheezing/shortness of breath. - ferrous sulfate 325 mg (65 mg iron) tablet TAKE 1 TABLET BY MOUTH TWICE A DAY - cyclobenzaprine (FLEXERIL) 10 mg tablet Take by mouth three times daily as needed for muscle spasm. - acetaminophen (TYLENOL EXTRA STRENGTH) 500 mg tablet Take 2 tablets by mouth every 6 hours as needed for pain. - pantoprazole DR (PROTONIX) 40 mg tablet Take 1 tablet by mouth once daily. Facility-Administered Medications as of 04/02/2022 - perflutren lipid microspheres 1.3 mL in NaCl (PF) 0.9% 10 mL injection (DEFINITY) - sodium chloride 0.9 % (flush) 10 mL (BD POSIFLUSH) Meds Comments as of 09/29/2021: 09/29/21 The medications are managed by this patient by: [facility] Safia Carr, [facility] Problem List As Of Date 04/02/2022 Noted Resolved BENIGN HYPERTENSION [I10] 06/30/2004 03/12/2008 HLD (hyperlipidemia) [E78.5] 06/30/2004 ROUTINE MEDICAL EXAM [Z00.00] 06/30/2004 11/26/2014 Disturbance in sleep behavior [G47.9] 06/30/2004 CHEST PAIN NOS [R07.9] 06/30/2004 11/26/2014 ALLERGIC RHINITIS NOS [J30.9] 06/30/2004 JOINT PAIN-SHLDER [M25.519] 06/04/2006 Essential hypertension [I10] 03/12/2008 ESOPHAGEAL REFLUX [K21.9] 03/12/2008 TOBACCO USE DISORDER [F17.200] 03/12/2008 NIMCO (obstructive sleep apnea) [G47.33] 11/15/2019 History of seizure [Z87.898] 11/15/2019 Class 2 obesity due to excess calories without *11/15/2019 Renal cell carcinoma of right kidney (HCC) [C64*07/23/2021 Metastatic renal cell carcinoma (HCC) [C64.9] 07/24/2021 New onset a-fib (HCC) [I48.91] 09/02/2021 Nonrheumatic mitral valve regurgitation [I34.0] 09/04/2021 Acute decompensated heart failure (HCC) [I50.9] 09/22/2021 Prediabetes [R73.03] 10/27/2021 CAD (coronary artery disease) [I25.10] 10/27/2021 Encounter Status:Closed by DONAVON EASTMAN on 04/02/22 [facility] CT ABD/PEL W IVCONon 023 CT ABD/PEL W IVCON * * *Final Report* * * DATE OF EXAM: Mar 26 2022 10:14AM [facility] 0530 - CT ABD/PEL W IVCON / PROCEDURE REASON: Renal cell carcinoma of right kidney (HCC) * * * * Physician Interpretation * * * * EXAMINATION: CT ABDOMEN AND PELVIS WITH IV CONTRAST CLINICAL HISTORY: Renal cell carcinoma of the right kidney. Status post interval robotic right radical nephrectomy at [facility]. TECHNIQUE: CT of the abdomen and pelvis was performed using standard technique, scanning from just above the dome of the diaphragm to the symphysis pubis. MQ: CTAP_3 Contrast: IV: 100 ml of Isovue 300 Oral: [address] Radiation dose: Integrated Dose-length product (DLP) for this visit = 1082 mGy*cm. CT Dose Reduction Employed: AEC (automated exposure control) COMPARISON: CT abdomen/pelvis, 11/20/2021. Nuclear medicine bone scan, 03/23/2022. RESULT: Liver: No mass. Small focus of pericapsular fat along the inferior right lobe, without suspicion for metastasis. Biliary: No bile duct dilation. No calcified gallstones Spleen: No mass. No splenomegaly. Pancreas: No mass or duct dilation. Adrenals: No mass. Kidneys: -Interval right nephrectomy. There is some linear/geographic soft tissue attenuation along the superior margin of the surgical bed, probably postoperative. -Left: No mass, stone, or hydronephrosis. GI tract: No dilation or wall thickening. Lymph nodes: No abdominal or pelvic lymphadenopathy. Mesentery/Peritoneum: No ascites or mass. Retroperitoneum: No mass. Vasculature: - Abdominal aorta and iliac arteries: Extensive aortic atherosclerosis. Stable 4.1 cm fusiform infrarenal abdominal aortic aneurysm (3:65), as well as bilateral common iliac artery aneurysms measuring up to 2.3 cm in the right upper (: 77) and 2.1 cm on the left (3:79). - Celiac and SMA: Patent without stenosis. - Portal venous system (SMV, splenic vein, portal vein and branches): Somewhat poorly opacified but grossly patent - Hepatic veins: Patent. Pelvis: No mass, ascites or fluid collection. Bones/Soft Tissues: -Lytic mass centered in the posterior elements of L4 measures 5.0 x 3.4 x 2.9 cm (3:64, 604:79), previously 6.5 x 5.8 x 3.8 cm. No new bone metastases. Lower thorax: A chest CT performed will be reported separately. Case Investigator (topogram) images: No additional findings. IMPRESSION: Interval right nephrectomy with change in the nephrectomy bed favored to be postoperative. No definite recurrence. Decrease in size of lytic metastasis centered in the posterior elements of L4. No new abdominopelvic metastasis. Stable aortic and bilateral common iliac artery aneurysms. Return Checker: PSCB Transcribe Date/Time: Mar 28 2022 9:47A Dictated by : JOSE MARIA MADSEN MD This examination was interpreted and the report reviewed and electronically signed by: JOSE MARIA MADSEN MD on Mar 28 2022 9:57AM EST [id number] Normal [facility] CT CHEST W IVCONon 3 CT CHEST W IVCON * * *Final Report* * * DATE OF EXAM: Mar 26 2022 10:14AM [facility] 0539 - CT CHEST W IVCON / PROCEDURE REASON: Renal cell carcinoma of right kidney (HCC) * * * * Physician Interpretation * * * * CT CHEST W IVCON HISTORY: Renal cell carcinoma of right kidney (HCC) Technique: Spiral CT acquisition of the chest from the thoracic inlet to the upper abdomen without contrast. MQ: [id number]_6 CT Dose-Length Product: 412.9 by mGy*cm CT Dose Reduction Employed: Contrast Media: IV administration of 100 ml of Omnipaque 350 Comparison: 11/20/2021 CT chest RESULT: Lung parenchyma, airways, and pleural: There are new small patchy infiltrates in the lateral right middle and lower lobes. No consolidation. Central airways are patent. No suspicious pulmonary nodule. Lower neck, lymph nodes, and mediastinum: The imaged thyroid gland is normal. Stable 1.3 cm right paratracheal lymph node (series 2 image 88). No new lymphadenopathy in the supraclavicular, axillary, mediastinal, or hilar regions. Heart, pericardium, and thoracic vessels: Left atrial enlargement. No pericardial effusion. Atherosclerotic calcification of the aorta and coronary arteries. Ectasia of the ascending aorta measuring up to 4.0-cm. Bones and soft tissues: Lytic destructive expansile metastasis of anterolateral right sixth rib has decreased in size, now measuring 8.8 x 4.1 cm, previously 8.8 x 5.4 cm. Stable atrophy and right pectoralis major muscle. Upper abdomen: No abnormality in the imaged upper abdomen. Case Investigator (topogram) images: No additional findings. IMPRESSION: New small patchy infiltrates in the lateral right middle and lower lobes. Interval decrease in size right sixth rib expansile metastasis. Stable 1.3 cm right paratracheal lymph node. No new lymphadenopathy. Atherosclerotic calcification of the aorta and coronary arteries. Ectasia of the ascending thoracic aorta. _ Return Checker: PSCB Transcribe Date/Time: Mar 29 2022 12:00P Dictated by : YEFRI MORRIS MD This examination was interpreted and the report reviewed and electronically signed by: YEFRI MORRIS MD on Mar 29 2022 10:12PM EST [id number] [facility] ----- YEFRI YANEZ ([id number]) [address] [facility] Date Time Provider Department 03/25/22 HAYLEE WILBURN [facility] During your visit today, we recorded the following information about you: Tania Parekh RN 03/25/2022 9:12 AM Signed Patient called stating his insurance is not approved for our office and that Dr. Wilburn needs to place a Referral for [facility]. I reminded him that last week he called me telling me that his insurance is making him go to [facility] for the scans and not [facility] and do not understand how he could be approved with one or the other. I instructed him to go ahead and have the scans done since they have been approved, I had asked him if he had eaten anything, he stated, he had a sandwich. Instructed to contact central scheduling to let them know and to see if he needs to reschedule and to call back. Informed Dr. Wilburn about scans he stated if we need to push back patient's appointment then we can for next week if need be. Message Tessa Gary, our director so that maybe she can clarify the insurance information.Tania Parekh RN Allergies As of Date: 03/25/2022 Noted Allergy Reaction LISINOPRIL 09/01/2012 18 - Angioedema SHELLFISH CONTAINING PRODUCTS 06/04/2019 10 - Anaphylaxis 4 - Hives ASPIRIN 07/21/2004 5 - Intolerance MUSHROOM 08/05/2021 4 - Hives PENICILLINS 11/01/2003 5 - Intolerance Date Reviewed: 03/11/2022 Reviewed by: Bernarda Kee MA - Fully Assessed Reason for Visit: Appointment [186] Laboratory Apparatus Glass Blower - Other [3602] Prescriptions as of 03/25/2022 - axitinib (INLYTA) 5 mg tablet Take 1 tablet (5 mg) by mouth every 12 hours. - furosemide (LASIX) 40 mg tablet Take 1 tablet by mouth once daily. - torsemide (DEMADEX) 20 mg tablet Take 2 tablets by mouth once daily. TAKE 2 TABLETS BY MOUTH TO EQUAL 40 MG ONCE PER DAY - amLODIPine (NORVASC) 10 mg tablet - albuterol (PROVENTIL) 2.5 mg /3 mL (0.083 %) nebulizer solution - carvedilol (COREG) 12.5 mg tablet once daily. - warfarin (COUMADIN) 1 mg tablet - warfarin (COUMADIN) 2 mg tablet - warfarin (COUMADIN) 3 mg tablet - polyethylene glycol 3350 (MIRALAX, GLYCOLAX) 17 gram/dose powder - oxyCODONE IR (ROXICODONE) 5 mg immediate release tablet - losartan (COZAAR) 50 mg tablet - lovastatin (MEVACOR) 20 mg tablet daily at bedtime. - TRELEGY ELLIPTA 100-62.5-25 mcg inhalation powder - spironolactone (ALDACTONE) 25 mg tablet Take 0.5 tablets by mouth once daily. - warfarin (COUMADIN) 5 mg tablet Take 1 tablet by mouth once daily. - rosuvastatin (CRESTOR) 40 mg tablet Take 1 tablet by mouth once daily. - albuterol HFA (PROVENTIL HFA, VENTOLIN HFA) 90 mcg/actuation inhaler Inhale 2 Puffs as instructed every 4 hours as needed for wheezing/shortness of breath. - ferrous sulfate 325 mg (65 mg iron) tablet TAKE 1 TABLET BY MOUTH TWICE A DAY - cyclobenzaprine (FLEXERIL) 10 mg tablet Take by mouth three times daily as needed for muscle spasm. - acetaminophen (TYLENOL EXTRA STRENGTH) 500 mg tablet Take 2 tablets by mouth every 6 hours as needed for pain. - pantoprazole DR (PROTONIX) 40 mg tablet Take 1 tablet by mouth once daily. Facility-Administered Medications as of 03/25/2022 - perflutren lipid microspheres 1.3 mL in NaCl (PF) 0.9% 10 mL injection (DEFINITY) - sodium chloride 0.9 % (flush) 10 mL (BD POSIFLUSH) Meds Comments as of 09/29/2021: 09/29/21 The medications are managed by this patient by: SPOUSE Safia Bruno, LT[facility], located within [facility] Problem List As Of Date 03/25/2022 Noted Resolved BENIGN HYPERTENSION [I10] 06/30/2004 03/12/2008 HLD (hyperlipidemia) [E78.5] 06/30/2004 ROUTINE MEDICAL EXAM [Z00.00] 06/30/2004 11/26/2014 Disturbance in sleep behavior [G47.9] 06/30/2004 CHEST PAIN NOS [R07.9] 06/30/2004 11/26/2014 ALLERGIC RHINITIS NOS [J30.9] 06/30/2004 JOINT PAIN-SHLDER [M25.519] 06/04/2006 Essential hypertension [I10] 03/12/2008 ESOPHAGEAL REFLUX [K21.9] 03/12/2008 TOBACCO USE DISORDER [F17.200] 03/12/2008 NIMCO (obstructive sleep apnea) [G47.33] 11/15/2019 History of seizure [Z87.898] 11/15/2019 Class 2 obesity due to excess calories without *11/15/2019 Renal cell carcinoma of right kidney (HCC) [C64*07/23/2021 Metastatic renal cell carcinoma (HCC) [C64.9] 07/24/2021 New onset a-fib (HCC) [I48.91] 09/02/2021 Nonrheumatic mitral valve regurgitation [I34.0] 09/04/2021 Acute decompensated heart failure (HCC) [I50.9] 09/22/2021 Prediabetes [R73.03] 10/27/2021 CAD (coronary artery disease) [I25.10] 10/27/2021 Encounter Status:Closed by TANIA PAREKH on 03/25/22 [facility] CNPN Telephone ([facility]) ----- YEFRI YANEZ ([id number]) [address] [facility] Date Time Provider Department 03/25/22 HAYLEE WILBURN [facility] During your visit today, we recorded the following information about you: Venita Mistryman 03/25/2022 9:23 AM Signed Per chat from RN TLP, yesica pt visit and possible tx from today to 04/02. Pt keeps calling to say that he is not apporved to be seen here and his insurance told him to go to [place]. I have discussed several times with pt that we have done the OON referral and all appts so far have been approved, including upcoming scans, visit and treatment. Pt aware of new appointment date and time. Venita Pollock Allergies As of Date: 03/25/2022 Noted Allergy Reaction LISINOPRIL 09/01/2012 18 - Angioedema SHELLFISH CONTAINING PRODUCTS 06/04/2019 10 - Anaphylaxis 4 - Hives ASPIRIN 07/21/2004 5 - Intolerance MUSHROOM 08/05/2021 4 - Hives PENICILLINS 11/01/2003 5 - Intolerance Date Reviewed: 03/11/2022 Reviewed by: Bernarda Kee MA - Fully Assessed Reason for Visit: Appointment [186] Prescriptions as of 03/25/2022 - axitinib (INLYTA) 5 mg tablet Take 1 tablet (5 mg) by mouth every 12 hours. - furosemide (LASIX) 40 mg tablet Take 1 tablet by mouth once daily. - torsemide (DEMADEX) 20 mg tablet Take 2 tablets by mouth once daily. TAKE 2 TABLETS BY MOUTH TO EQUAL 40 MG ONCE PER DAY - amLODIPine (NORVASC) 10 mg tablet - albuterol (PROVENTIL) 2.5 mg /3 mL (0.083 %) nebulizer solution - carvedilol (COREG) 12.5 mg tablet once daily. - warfarin (COUMADIN) 1 mg tablet - warfarin (COUMADIN) 2 mg tablet - warfarin (COUMADIN) 3 mg tablet - polyethylene glycol 3350 (MIRALAX, GLYCOLAX) 17 gram/dose powder - oxyCODONE IR (ROXICODONE) 5 mg immediate release tablet - losartan (COZAAR) 50 mg tablet - lovastatin (MEVACOR) 20 mg tablet daily at bedtime. - TRELEGY ELLIPTA 100-62.5-25 mcg inhalation powder - spironolactone (ALDACTONE) 25 mg tablet Take 0.5 tablets by mouth once daily. - warfarin (COUMADIN) 5 mg tablet Take 1 tablet by mouth once daily. - rosuvastatin (CRESTOR) 40 mg tablet Take 1 tablet by mouth once daily. - albuterol HFA (PROVENTIL HFA, VENTOLIN HFA) 90 mcg/actuation inhaler Inhale 2 Puffs as instructed every 4 hours as needed for wheezing/shortness of breath. - ferrous sulfate 325 mg (65 mg iron) tablet TAKE 1 TABLET BY MOUTH TWICE A DAY - cyclobenzaprine (FLEXERIL) 10 mg tablet Take by mouth three times daily as needed for muscle spasm. - acetaminophen (TYLENOL EXTRA STRENGTH) 500 mg tablet Take 2 tablets by mouth every 6 hours as needed for pain. - pantoprazole DR (PROTONIX) 40 mg tablet Take 1 tablet by mouth once daily. Facility-Administered Medications as of 03/25/2022 - perflutren lipid microspheres 1.3 mL in NaCl (PF) 0.9% 10 mL injection (DEFINITY) - sodium chloride 0.9 % (flush) 10 mL (BD POSIFLUSH) Meds Comments as of 09/29/2021: 09/29/21 The medications are managed by this patient by: SPOUSE Safia Carr, [facility] located [facility] Problem List As Of Date 03/25/2022 Noted Resolved BENIGN HYPERTENSION [I10] 06/30/2004 03/12/2008 HLD (hyperlipidemia) [E78.5] 06/30/2004 ROUTINE MEDICAL EXAM [Z00.00] 06/30/2004 11/26/2014 Disturbance in sleep behavior [G47.9] 06/30/2004 CHEST PAIN NOS [R07.9] 06/30/2004 11/26/2014 ALLERGIC RHINITIS NOS [J30.9] 06/30/2004 JOINT PAIN-SHLDER [M25.519] 06/04/2006 Essential hypertension [I10] 03/12/2008 ESOPHAGEAL REFLUX [K21.9] 03/12/2008 TOBACCO USE DISORDER [F17.200] 03/12/2008 NIMCO (obstructive sleep apnea) [G47.33] 11/15/2019 History of seizure [Z87.898] 11/15/2019 Class 2 obesity due to excess calories without *11/15/2019 Renal cell carcinoma of right kidney (HCC) [C64*07/23/2021 Metastatic renal cell carcinoma (HCC) [C64.9] 07/24/2021 New onset a-fib (HCC) [I48.91] 09/02/2021 Nonrheumatic mitral valve regurgitation [I34.0] 09/04/2021 Acute decompensated heart failure (HCC) [I50.9] 09/22/2021 Prediabetes [R73.03] 10/27/2021 CAD (coronary artery disease) [I25.10] 10/27/2021 Encounter Status:Closed by VENITA POLLOCK on 03/25/22 [facility] BONE WHOLE BODYon 023 MO BONE WHOLE BODY * * *Final Report* * * DATE OF EXAM: Mar 23 2022 12:09PM N 0014 - MO BONE WHOLE BODY / PROCEDURE REASON: Renal cell carcinoma of right kidney (HCC) * * * * Physician Interpretation * * * * WHOLE BODY BONE SCAN CLINICAL HISTORY: Right RCC. TECHNIQUE: 21.8 mCi technetium 99m MDP IV. Whole body planar imaging followed in 3-4 hours, both in anterior and posterior views. COMPARISON: CT chest/abdomen/pelvis 11/20/2021 RESULT: -Increased tracer uptake along the right anterior chest wall centered along the right sixth rib, corresponding with known osseous metastatic disease. -Additional increased uptake along L4, corresponding with metastasis within the posterior elements. Right nephrectomy. Degenerative changes in the shoulders, sternoclavicular joints, and feet. IMPRESSION: Osseous metastatic disease involving the right anterior sixth rib and L4 vertebra. Return Checker: DANITZA Transcribe Date/Time: Mar 23 2022 12:12P Dictated by : NASREEN QUINTANA MD This examination was interpreted and the report reviewed and electronically signed by: NASREEN QUINTANA MD on Mar 23 2022 12:18PM EST [id number] [facility] CNPNon 03-12-2022 CNPN Telephone ([facility]) ----- YEFRI YANEZ ([id number]) [address] [facility] Date Time Provider Department 03/12/22 AMERICA SCHWARTZ [facility] During your visit today, we recorded the following information about you: Octavio Schwartz RN 03/12/2022 11:04 AM Signed LMOM with the appointment dates, times and location of upcoming bone scan and CT scans. Bone scan 03/23/22 at 830 am here at the [facility]. CT scans at [place] urgent [facility] 03/24/22 at 1pm. America Schwartz RN, BSN, OCN Allergies As of Date: 03/12/2022 Noted Allergy Reaction LISINOPRIL 09/01/2012 18 - Angioedema SHELLFISH CONTAINING PRODUCTS 06/04/2019 10 - Anaphylaxis 4 - Hives ASPIRIN 07/21/2004 5 - Intolerance MUSHROOM 08/05/2021 4 - Hives PENICILLINS 11/01/2003 5 - Intolerance Date Reviewed: 03/11/2022 Reviewed by: Bernarda Kee MA - Fully Assessed Reason for Visit: Appointment [186] Prescriptions as of 03/16/2022 - furosemide (LASIX) 40 mg tablet Take 1 tablet by mouth once daily. - axitinib (INLYTA) 5 mg tablet Take 1 tablet (5 mg) by mouth every 12 hours. - torsemide (DEMADEX) 20 mg tablet Take 2 tablets by mouth once daily. TAKE 2 TABLETS BY MOUTH TO EQUAL 40 MG ONCE PER DAY - amLODIPine (NORVASC) 10 mg tablet - albuterol (PROVENTIL) 2.5 mg /3 mL (0.083 %) nebulizer solution - carvedilol (COREG) 12.5 mg tablet once daily. - warfarin (COUMADIN) 1 mg tablet - warfarin (COUMADIN) 2 mg tablet - warfarin (COUMADIN) 3 mg tablet - polyethylene glycol 3350 (MIRALAX, GLYCOLAX) 17 gram/dose powder - oxyCODONE IR (ROXICODONE) 5 mg immediate release tablet - losartan (COZAAR) 50 mg tablet - lovastatin (MEVACOR) 20 mg tablet daily at bedtime. - TRELEGY ELLIPTA 100-62.5-25 mcg inhalation powder - spironolactone (ALDACTONE) 25 mg tablet Take 0.5 tablets by mouth once daily. - warfarin (COUMADIN) 5 mg tablet Take 1 tablet by mouth once daily. - rosuvastatin (CRESTOR) 40 mg tablet Take 1 tablet by mouth once daily. - albuterol HFA (PROVENTIL HFA, VENTOLIN HFA) 90 mcg/actuation inhaler Inhale 2 Puffs as instructed every 4 hours as needed for wheezing/shortness of breath. - ferrous sulfate 325 mg (65 mg iron) tablet TAKE 1 TABLET BY MOUTH TWICE A DAY - cyclobenzaprine (FLEXERIL) 10 mg tablet Take by mouth three times daily as needed for muscle spasm. - acetaminophen (TYLENOL EXTRA STRENGTH) 500 mg tablet Take 2 tablets by mouth every 6 hours as needed for pain. - pantoprazole DR (PROTONIX) 40 mg tablet Take 1 tablet by mouth once daily. Facility-Administered Medications as of 03/16/2022 - perflutren lipid microspheres 1.3 mL in NaCl (PF) 0.9% 10 mL injection (DEFINITY) - sodium chloride 0.9 % (flush) 10 mL (BD POSIFLUSH) Meds Comments as of 09/29/2021: 09/29/21 The medications are managed by this patient by: SPOUSE Safia Carr, [facility] Problem List As Of Date 03/12/2022 Noted Resolved BENIGN HYPERTENSION [I10] 06/30/2004 03/12/2008 HLD (hyperlipidemia) [E78.5] 06/30/2004 ROUTINE MEDICAL EXAM [Z00.00] 06/30/2004 11/26/2014 Disturbance in sleep behavior [G47.9] 06/30/2004 CHEST PAIN NOS [R07.9] 06/30/2004 11/26/2014 ALLERGIC RHINITIS NOS [J30.9] 06/30/2004 JOINT PAIN-SHLDER [M25.519] 06/04/2006 Essential hypertension [I10] 03/12/2008 ESOPHAGEAL REFLUX [K21.9] 03/12/2008 TOBACCO USE DISORDER [F17.200] 03/12/2008 NIMCO (obstructive sleep apnea) [G47.33] 11/15/2019 History of seizure [Z87.898] 11/15/2019 Class 2 obesity due to excess calories without *11/15/2019 Renal cell carcinoma of right kidney (HCC) [C64*07/23/2021 Metastatic renal cell carcinoma (HCC) [C64.9] 07/24/2021 New onset a-fib (HCC) [I48.91] 09/02/2021 Nonrheumatic mitral valve regurgitation [I34.0] 09/04/2021 Acute decompensated heart failure (HCC) [I50.9] 09/22/2021 Prediabetes [R73.03] 10/27/2021 CAD (coronary artery disease) [I25.10] 10/27/2021 Encounter Status:Closed by AMERICA SCHWARTZ on 03/16/22 [facility] CNOVSPon 03-11-2022 CNOVSP Visit (SP) Office ([facility]) ----- YEFRI YANEZ ([id number]) [address] [facility] Date Time Provider Department 03/11/22 1:00 PM HAYLEE WILBURN [facility] During your visit today, we recorded the following information about you: Pulse Respiration Blood pressure Weight 78/minute 16/minute 134/84 118.8 kg Haylee Wilburn MD 03/11/2022 4:16 PM Signed [facility] Progress Note SERVICE DATE: March 11, 2022 ONCOLOGIC HISTORY: Yefri Yanez is a 56 year old male diagnosed with metastatic renal cell ca diagnosed in June 2021. 06/2021: Presented with syncopal episode. 06/17/21: CT: a large soft tissue mass in the anterolateral right chest wall likely arising in the right sixth rib measuring 8.9 x 5.6 cm and 7.4cm R renal mass and L4 destructive soft tissue mass. 06/30/21: Bone scan showed focal increased tracer uptake are demonstrated in the L4, right lateral sixth rib. 07/01/21: Biopsy of R chest wall mass showing metastatic renal cell carcinoma 08/08/21: Started Cabo and Nivo on Cyto-KIK; TRIAL (CYTO reductive surgery in Kidney cancer plus Immunotherapy (nivolumab) and targeted Kinase inhibition (cabozantinib) 08/18/21-09/11/21, cabo held due to worse HTN. 09/11/21, Nivo held due to pneumonitis. 12/26/21, completed palliative XRT to L3-L5, 2,000 cGy in 5 fx. HISTORY OF PRESENT ILLNESS: Mr. Yefri Yanez is a 56 year old male found accidentally in 06/2021 to have a R renal mass, R rib lesion, and L4 lesion. Soft tissue/right chest wall mass biopsy from 07/01/2021 showed metastatic RCC. He started treatment with cabo + nivo on [facility] 1820 Trial on 08/08/2021 at [facility]. He has baseline HTN and developed worsening HTN after starting treatment. His cabo was held on 08/18/2021, resumed on 09/11/2021. The Nivo was held on 09/11/21 due to pneumonitis, and prednisone 60 mg daily was started and tapered off within about one month. Due to insurance change, he was taken off the trial and referred to [facility] to resume the treatment. He was scheduled to have nephrectomy on 11/04/21, but delayed due to his back pain. He underwent palliative XRT to L3-L5 (2,000 cGy in 5 fx), completed 12/26/21). He underwent da Farzad assisted robotic right radical nephrectomy at [facility] in [facility]. I do not have the official pathology report yet. We have made multiple requests to [facility] for the surgical pathology, to no avail. Clinically, has been doing well. He denies pain in the chest wall or back. He denies syncope, seizure, headaches, blurred vision. He wants to go back to work part-time because he is bored at home. Current Outpatient Medications Medication Sig Dispense Refill furosemide (LASIX) 40 mg tablet Take 1 tablet by mouth once daily. torsemide (DEMADEX) 20 mg tablet Take 2 tablets by mouth once daily. TAKE 2 TABLETS BY MOUTH TO EQUAL 40 MG ONCE PER DAY 180 tablet 1 amLODIPine (NORVASC) 10 mg tablet albuterol (PROVENTIL) 2.5 mg /3 mL (0.083 %) nebulizer solution carvedilol (COREG) 12.5 mg tablet once daily. polyethylene glycol 3350 (MIRALAX, GLYCOLAX) 17 gram/dose powder losartan (COZAAR) 50 mg tablet CABOMETYX 20 mg tablet once daily. lovastatin (MEVACOR) 20 mg tablet daily at bedtime. TRELEGY ELLIPTA 100-62.5-25 mcg inhalation powder spironolactone (ALDACTONE) 25 mg tablet Take 0.5 tablets by mouth once daily. 30 tablet 2 warfarin (COUMADIN) 5 mg tablet Take 1 tablet by mouth once daily. (Patient taking differently: Take 7 mg by mouth once daily. 7mg per patient 6-7 mg it changes at times) 30 tablet 2 rosuvastatin (CRESTOR) 40 mg tablet Take 1 tablet by mouth once daily. 90 tablet 3 albuterol HFA (PROVENTIL HFA, VENTOLIN HFA) 90 mcg/actuation inhaler Inhale 2 Puffs as instructed every 4 hours as needed for wheezing/shortness of breath. 1 Inhaler 0 ferrous sulfate 325 mg (65 mg iron) tablet TAKE 1 TABLET BY MOUTH TWICE A DAY (Patient taking differently: 1 tablet once daily.) 60 tablet 2 cyclobenzaprine (FLEXERIL) 10 mg tablet Take by mouth three times daily as needed for muscle spasm. acetaminophen (TYLENOL EXTRA STRENGTH) 500 mg tablet Take 2 tablets by mouth every 6 hours as needed for pain. [address] (PROTONIX) 40 mg tablet Take 1 tablet by mouth once daily. 90 tablet 3 iv contrast (will be provided with radiology test) CT Chest ABD/PEL-Inject, intravenously, once for 1 dose.No IV access, insert saline lock prior to the beginning of sedation, infusion, injection of imaging exam. Discontinue saline lock post exam. If Pt. has a central line or IVAD, may access for administration according to line specific nursing protocol. Once exam is complete flush line and de-access according to line specific nursing protocol in the CT contrast administration guidelines link. 1 Each 0 warfarin (COUMADIN) 1 mg tablet warfarin (COUMADIN) 2 mg tablet (more content not included)... Normal [facility] ECHO LIMITEDon 02-26-2022 CONCLUSIONS: - Exam indication: Cardiomyopathy - The left ventricle is normal in size. There is moderate concentric left ventricular hypertrophy. Septal hypertrophy noted 2cm. Left ventricular systolic function is mildly decreased. EF = 42 5% (2D biplane) Left ventricular diastolic function was not evaluated due to AF. - The right ventricle is normal in size. Right ventricular systolic function is mildly decreased. - The left atrial cavity is moderately dilated. - There is moderately severe (3+) mitral valve regurgitation. Regurgitant orifice area (PISA) is 0.68 cm . - There is moderate (2+) tricuspid valve regurgitation. RVSP 39 mmhg with mild PHTN Mild to moderate AI Mild PI IVC 2.1 cm with RAP 3mmhg - Exam was compared with the prior echocardiographic exam performed on 09/26/21. There is no significant change. * * * Final * * * [facility] CARDIOLOGY Echocardiography Report: [facility] Date of service: 02/26/2022 8:14:13 AM Ordering physician: SAYRA TELLO Indication: Cardiomyopathy Technologist: Sybil Craft [facility] Interpreting physician: Sayra Tello MD PATIENT: Name: YEFRI YANEZ : 1965 Age: 57 years Gender: M History of hypertension, chronic kidney disease, cardiomyopathy and valvular heart disease. Primary rhythm: atrial fib. Height: 180.30 cm BSA: 2.40 m Weight: 114.76 kg BMI: 35.3 kg/m Heart rate 102 bpm Blood pressure 132/72 mmHg Color Doppler was utilized to interrogate the cardiac valves assessed and spectral Doppler was utilized to determine the flow velocities and pressure gradients reported in this exam. MEASUREMENTS: Value Indexed Normal LV ID (diastole) 5.5 cm (2D) 2.29 cm/m LV ID (systole) 2.9 cm (2D) 1.21 cm/m IVS, leaflet tips 2.3 cm (2D) Posterior wall thickness 1.4 cm (2D) Left ventricular mass 510 g (2D) 213 g/m LV stroke volume 70 ml (2D biplane) LVOT stroke volume 70 ml 30 ml/m LV end diastolic volume 166 ml (2D biplane) 69.2 ml/m 34<=EDVi<75 LV end systolic volume 96 ml (2D biplane) 40.1 ml/m Ejection Fraction 42 % (2D biplane) EF > 52 FINDINGS: LEFT VENTRICLE The left ventricle is normal in size. There is moderate concentric left ventricular hypertrophy. Left ventricular systolic function is mildly decreased. Left ventricular diastolic function was not evaluated due to AF. Wall Motion: The apical septal segment, mid inferior segment, and basal inferoseptal segment are mildly hypokinetic. All remaining scored segments are normal. RIGHT VENTRICLE The right ventricle is normal in size. Right ventricular systolic function is mildly decreased. Tricuspid annular displacement is 1.6 cm. Estimated right ventricular systolic pressure is 39 mmHg consistent with mild pulmonary hypertension. Estimated right atrial pressure is 3 mmHg based on IVC assessment. LEFT ATRIUM The left atrial cavity is moderately dilated. RIGHT ATRIUM Inferior Vena Cava: The inferior vena cava appears normal measuring 2.1 cm. The vessel decreases greater than 50 percent with inspiration. MITRAL VALVE There is no mitral stenosis. There is moderately severe (3+) mitral valve regurgitation. Regurgitant orifice area (PISA) is 0.68 cm . TRICUSPID VALVE There is no tricuspid stenosis. There is moderate (2+) tricuspid valve regurgitation. AORTIC VALVE There is no aortic valve stenosis. There is mild (1+ - 2+) aortic valve regurgitation. Tricuspid aortic valve. The LVOT mean velocity is 78.1 cm/s. The LVOT diameter is 2.2 cm. The LVOT stroke volume index is 30 ml/m . PULMONIC VALVE There is mild (1+) pulmonic valve regurgitation. PERICARDIUM The pericardium is normal. [facility] CARDIOLOGY [facility] ECHO LIMITED Echocardiography Rep ort: [facility] Date of service: 02/26/2022 8:14:13 AM Ordering physician: SAYRA TELLO Indication: Cardiomyopathy Technologist: Sybil Craft [facility] Interpreting physician: Sayra Tello MD PATIENT: Name: YEFRI YANEZ : 1965 Age: 57 years Gender: M History of hypertension, chronic kidney disease, cardiomyopathy and valvular heart disease. Primary rhythm: atrial fib. Height: 180.30 cm BSA: 2.40 m Weight: 114.76 kg BMI: 35.3 kg/m Heart rate 102 bpm Blood pressure 132/72 mmHg Color Doppler was utilized to interrogate the cardiac valves assessed and spectral Doppler was utilized to determine the flow velocities and pressure gradients reported in this exam. MEASUREMENTS: Value Indexed Normal LV ID (diastole) 5.5 cm (2D) 2.29 cm/m LV ID (systole) 2.9 cm (2D) 1.21 cm/m IVS, leaflet tips 2.3 cm (2D) Posterior wall thickness 1.4 cm (2D) Left ventricular mass 510 g (2D) 213 g/m LV stroke volume 70 ml (2D biplane) LVOT stroke volume 70 ml 30 ml/m LV end diastolic volume 166 ml (2D biplane) 69.2 ml/m 34<=EDVi<75 LV end systolic volume 96 ml (2D biplane) 40.1 ml/m Ejection Fraction 42 % (2D biplane) EF > 52 FINDINGS: LEFT VENTRICLE The left ventricle is normal in size. There is moderate concentric left ventricular hypertrophy. Left ventricular systolic function is mildly decreased. Left ventricular diastolic function was not evaluated due to AF. Wall Motion: The apical septal segment, mid inferior segment, and basal inferoseptal segment are mildly hypokinetic. All remaining scored segments are normal. RIGHT VENTRICLE The right ventricle is normal in size. Right ventricular systolic function is mildly decreased. Tricuspid annular displacement is 1.6 cm. Estimated right ventricular systolic pressure is 39 mmHg consistent with mild pulmonary hypertension. Estimated right atrial pressure is 3 mmHg based on IVC assessment. LEFT ATRIUM The left atrial cavity is moderately dilated. RIGHT ATRIUM Inferior Vena Cava: The inferior vena cava appears normal measuring 2.1 cm. The vessel decreases greater than 50 percent with inspiration. MITRAL VALVE There is no mitral stenosis. There is moderately severe (3+) mitral valve regurgitation. Regurgitant orifice area (PISA) is 0.68 cm . TRICUSPID VALVE There is no tricuspid stenosis. There is moderate (2+) tricuspid valve regurgitation. AORTIC VALVE There is no aortic valve stenosis. There is mild (1+ - 2+) aortic valve regurgitation. Tricuspid aortic valve. The LVOT mean velocity is 78.1 cm/s. The LVOT diameter is 2.2 cm. The LVOT stroke volume index is 30 ml/m . PULMONIC VALVE There is mild (1+) pulmonic valve regurgitation. PERICARDIUM The pericardium is normal. CONCLUSIONS: - Exam indication: Cardiomyopathy - The left ventricle is normal in size. There is moderate concentric left ventricular hypertrophy. Septal hypertrophy noted 2cm. Left ventricular systolic function is mildly decreased. EF = 42 5% (2D biplane) Left ventricular diastolic function was not evaluated due to AF. - The right ventricle is normal in size. Right ventricular systolic function is mildly decreased. - The left atrial cavity is moderately dilated. - There is moderately severe (3+) mitral valve regurgitation. Regurgitant orifice area (PISA) is 0.68 cm . - There is moderate (2+) tricuspid valve regurgitation. RVSP 39 mmhg with mild PHTN Mild to moderate AI Mild PI IVC 2.1 cm with RAP 3mmhg - Exam was compared with the prior CC echocardiographic exam performed on 09/26/21. There is no significant change. * * * Final * * * [facility] [employer] [facility] : [id number] [facility]) ----- YEFRI YANEZ ([id number]) [address] [facility] Date Time Provider Department 02/19/22 SAYRA TELLO During your visit today, we recorded the following information about you: Florian Mello RN 02/19/2022 2:27 PM Signed sent me a msg stating Yefri's creatinine went up to 1.9 from 1.1. He would like him to stop his torsemide, losartan, and aldactone for now and repeat the BMP in 5 days. Pt and notified. I have the BMP order ready. I just need your signature. Florian Mello RN Allergies As of Date: 02/19/2022 Noted Allergy Reaction LISINOPRIL 09/01/2012 18 - Angioedema SHELLFISH CONTAINING PRODUCTS 06/04/2019 10 - Anaphylaxis 4 - Hives ASPIRIN 07/21/2004 5 - Intolerance MUSHROOM 08/05/2021 4 - Hives PENICILLINS 11/01/2003 5 - Intolerance Date Reviewed: 02/17/2022 Reviewed by: Bernarda Kee MA - Fully Assessed Reason for Visit: Results [95] Primary Visit Diagnosis:Essential hypertension [I10] Other Visit Diagnoses:Paroxysmal atrial fibrillation (HCC) [I48.0] Acute decompensated heart failure (HCC) [I50.9] Order(s):BASIC METABOLIC PNL [SQBMP] Order #: [id number] FUTURE Prescriptions as of 02/22/2022 - torsemide (DEMADEX) 20 mg tablet Take 2 tablets by mouth once daily. TAKE 2 TABLETS BY MOUTH TO EQUAL 40 MG ONCE PER DAY - amLODIPine (NORVASC) 10 mg tablet - albuterol (PROVENTIL) 2.5 mg /3 mL (0.083 %) nebulizer solution - carvedilol (COREG) 12.5 mg tablet - warfarin (COUMADIN) 1 mg tablet - warfarin (COUMADIN) 2 mg tablet - warfarin (COUMADIN) 3 mg tablet - polyethylene glycol 3350 (MIRALAX, GLYCOLAX) 17 gram/dose powder - oxyCODONE IR (ROXICODONE) 5 mg immediate release tablet - losartan (COZAAR) 50 mg tablet - CABOMETYX 20 mg tablet - lovastatin (MEVACOR) 20 mg tablet - TRELEGY ELLIPTA 100-62.5-25 mcg inhalation powder - spironolactone (ALDACTONE) 25 mg tablet Take 0.5 tablets by mouth once daily. - warfarin (COUMADIN) 5 mg tablet Take 1 tablet by mouth once daily. - rosuvastatin (CRESTOR) 40 mg tablet Take 1 tablet by mouth once daily. - albuterol HFA (PROVENTIL HFA, VENTOLIN HFA) 90 mcg/actuation inhaler Inhale 2 Puffs as instructed every 4 hours as needed for wheezing/shortness of breath. - ferrous sulfate 325 mg (65 mg iron) tablet TAKE 1 TABLET BY MOUTH TWICE A DAY - cyclobenzaprine (FLEXERIL) 10 mg tablet Take by mouth three times daily as needed for muscle spasm. - acetaminophen (TYLENOL EXTRA STRENGTH) 500 mg tablet Take 2 tablets by mouth every 6 hours as needed for pain. - pantoprazole DR (PROTONIX) 40 mg tablet Take 1 tablet by mouth once daily. Facility-Administered Medications as of 02/22/2022 - perflutren lipid microspheres 1.3 mL in NaCl (PF) 0.9% 10 mL injection (DEFINITY) - sodium chloride 0.9 % (flush) 10 mL (BD POSIFLUSH) Meds Comments as of 09/29/2021: 09/29/21 The medications are managed by this patient by: SPOUSE Safia Carr, [facility], located within [facility] Problem List As Of Date 02/19/2022 Noted Resolved BENIGN HYPERTENSION [I10] 06/30/2004 03/12/2008 HLD (hyperlipidemia) [E78.5] 06/30/2004 ROUTINE MEDICAL EXAM [Z00.00] 06/30/2004 11/26/2014 Disturbance in sleep behavior [G47.9] 06/30/2004 CHEST PAIN NOS [R07.9] 06/30/2004 11/26/2014 ALLERGIC RHINITIS NOS [J30.9] 06/30/2004 JOINT PAIN-SHLDER [M25.519] 06/04/2006 Essential hypertension [I10] 03/12/2008 ESOPHAGEAL REFLUX [K21.9] 03/12/2008 TOBACCO USE DISORDER [F17.200] 03/12/2008 NIMCO (obstructive sleep apnea) [G47.33] 11/15/2019 History of seizure [Z87.898] 11/15/2019 Class 2 obesity due to excess calories without *11/15/2019 Renal cell carcinoma of right kidney (HCC) [C64*07/23/2021 Metastatic renal cell carcinoma (HCC) [C64.9] 07/24/2021 New onset a-fib (HCC) [I48.91] 09/02/2021 Nonrheumatic mitral valve regurgitation [I34.0] 09/04/2021 Acute decompensated heart failure (HCC) [I50.9] 09/22/2021 Prediabetes [R73.03] 10/27/2021 CAD (coronary artery disease) [I25.10] 10/27/2021 Encounter Status:Closed by SAYRA TELLO on 02/22/22 [facility] CNPShy 02-18-2022 CNPN Telephone (CARMOB) ----- YEFRI YANEZ ([id number]) [address] [facility] Date Time Provider Department 02/18/22 SAYRA TELLO N CARMOB During your visit today, we recorded the following information about you: Rachel Trevino 02/18/2022 3:27 PM Signed I called and left a message that his echo is scheduled 02/26/22 @ 8:00. Rachel Trevino Allergies As of Date: 02/18/2022 Noted Allergy Reaction LISINOPRIL 09/01/2012 18 - Angioedema SHELLFISH CONTAINING PRODUCTS 06/04/2019 10 - Anaphylaxis 4 - Hives ASPIRIN 07/21/2004 5 - Intolerance MUSHROOM 08/05/2021 4 - Hives PENICILLINS 11/01/2003 5 - Intolerance Date Reviewed: 02/17/2022 Reviewed by: Bernarda Kee MA - Fully Assessed Reason for Visit: Appointment [186] Prescriptions as of 02/18/2022 - torsemide (DEMADEX) 20 mg tablet Take 2 tablets by mouth once daily. TAKE 2 TABLETS BY MOUTH TO EQUAL 40 MG ONCE PER DAY - amLODIPine (NORVASC) 10 mg tablet - albuterol (PROVENTIL) 2.5 mg /3 mL (0.083 %) nebulizer solution - carvedilol (COREG) 12.5 mg tablet - warfarin (COUMADIN) 1 mg tablet - warfarin (COUMADIN) 2 mg tablet - warfarin (COUMADIN) 3 mg tablet - polyethylene glycol 3350 (MIRALAX, GLYCOLAX) 17 gram/dose powder - oxyCODONE IR (ROXICODONE) 5 mg immediate release tablet - losartan (COZAAR) 50 mg tablet - CABOMETYX 20 mg tablet - lovastatin (MEVACOR) 20 mg tablet - TRELEGY ELLIPTA 100-62.5-25 mcg inhalation powder - spironolactone (ALDACTONE) 25 mg tablet Take 0.5 tablets by mouth once daily. - warfarin (COUMADIN) 5 mg tablet Take 1 tablet by mouth once daily. - rosuvastatin (CRESTOR) 40 mg tablet Take 1 tablet by mouth once daily. - albuterol HFA (PROVENTIL HFA, VENTOLIN HFA) 90 mcg/actuation inhaler Inhale 2 Puffs as instructed every 4 hours as needed for wheezing/shortness of breath. - ferrous sulfate 325 mg (65 mg iron) tablet TAKE 1 TABLET BY MOUTH TWICE A DAY - cyclobenzaprine (FLEXERIL) 10 mg tablet Take by mouth three times daily as needed for muscle spasm. - acetaminophen (TYLENOL EXTRA STRENGTH) 500 mg tablet Take 2 tablets by mouth every 6 hours as needed for pain. - pantoprazole DR (PROTONIX) 40 mg tablet Take 1 tablet by mouth once daily. Facility-Administered Medications as of 02/18/2022 - perflutren lipid microspheres 1.3 mL in NaCl (PF) 0.9% 10 mL injection (DEFINITY) - sodium chloride 0.9 % (flush) 10 mL (BD POSIFLUSH) Meds Comments as of 09/29/2021: 09/29/21 The medications are managed by this patient by: SPOUSE Safia Carr, [facility] located [facility] Problem List As Of Date 02/18/2022 Noted Resolved BENIGN HYPERTENSION [I10] 06/30/2004 03/12/2008 HLD (hyperlipidemia) [E78.5] 06/30/2004 ROUTINE MEDICAL EXAM [Z00.00] 06/30/2004 11/26/2014 Disturbance in sleep behavior [G47.9] 06/30/2004 CHEST PAIN NOS [R07.9] 06/30/2004 11/26/2014 ALLERGIC RHINITIS NOS [J30.9] 06/30/2004 JOINT PAIN-SHLDER [M25.519] 06/04/2006 Essential hypertension [I10] 03/12/2008 ESOPHAGEAL REFLUX [K21.9] 03/12/2008 TOBACCO USE DISORDER [F17.200] 03/12/2008 NIMCO (obstructive sleep apnea) [G47.33] 11/15/2019 History of seizure [Z87.898] 11/15/2019 Class 2 obesity due to excess calories without *11/15/2019 Renal cell carcinoma of right kidney (HCC) [C64*07/23/2021 Metastatic renal cell carcinoma (HCC) [C64.9] 07/24/2021 New onset a-fib (HCC) [I48.91] 09/02/2021 Nonrheumatic mitral valve regurgitation [I34.0] 09/04/2021 Acute decompensated heart failure (HCC) [I50.9] 09/22/2021 Prediabetes [R73.03] 10/27/2021 CAD (coronary artery disease) [I25.10] 10/27/2021 Encounter Status:Closed by RACHEL TREVINO on 02/18/22 [facility] CBC W Auto Differential pane l (Bld)on 02-17-2022 Basophils (Bld) [#/Vol] 10*3/uL Normal <0.11 [facility] Comment on above: Order Comment: Speci men Type: BLOOD SPECIMENOrdering Facility: [facility] Address: [address] [place] [address] Performed By: #### 5 7021-8 ####[facility] HEME ONC LABCLIA [id number] [place] [address] [place] Basophils/100 WBC (Bld) 0.2 % Normal [facility] Comment on above: Order Comment: Speci men Type: BLOOD SPECIMENOrdering Facility: [facility] Address: [address] [place] [address] Performed By: #### 5 7021-8 ####[facility] HEME ONC LABCLIA [id number] [place] [address] [place] Differential cell count method Nom (Bld) Auto [facility] Comment on above: Order Comment: Speci men Type: BLOOD SPECIMENOrdering Facility: [facility] Address: [address] [place] [address] Performed By: #### 5 7021-8 ####[facility] LABCLIA [id number] [place] [address] [place] Eosinophils (Bld) [#/Vol] 0.04 10*3/uL Normal <0.46 [facility] Comment on above: Order Comment: Speci men Type: BLOOD SPECIMENOrdering Facility: [facility] Address: [address] [place] [address] Performed By: #### 5 7021-8 ####[facility] ONC LABCLIA [id number] [address] OF [place] Eosinophils/100 WBC (Bld) 1.0 % Normal [facility] Comment on above: Order Comment: Speci men Type: BLOOD SPECIMENOrdering Facility: [facility] Address: [address] [place] [address] Performed By: #### 5 7021-8 ####[facility] LABCLIA [id number] [address] [place] Erythrocyte distribution width (RBC) [Ratio] 17.0 % High 11.5-15.0 [facility] Comment on above: Order Comment: Speci men Type: BLOOD SPECIMENOrdering Facility: [facility] Address: [address] [place] [address] Performed By: #### 5 7021-8 ####[facility] LABCLIA [id number] [address] OF [place] Hematocrit (Bld) [Volume fraction] 47.4 % Normal 39.0-51.0 [facility] Comment on above: Order Comment: Speci men Type: BLOOD SPECIMENOrdering Facility: [facility] Address: [address] [place] [address] Performed By: #### 5 7021-8 ####[facility] LABCLIA [id number] [place] [address] [place] Hemoglobin (Bld) [Mass/Vol] 15.7 g/dL Normal 13.0-17.0 [facility] Comment on above: Order Comment: Speci men Type: BLOOD SPECIMENOrdering Facility: [facility] Address: [address] [place] [address] Performed By: #### 5 7021-8 ####[facility] LABCLIA [id number] [place] [address] [place] Immature granulocytes (Bld) [#/Vol] 10*3/uL Normal <0.10 [facility] Comment on above: Order Comment: Speci men Type: BLOOD SPECIMENOrdering Facility: [facility] Address: [address] [place] [address] Performed By: #### 5 7021-8 ####[facility] LABCLIA [id number] [place] [address] [place] Immature granulocytes/100 WBC (Bld) 0.5 % Normal [facility] Comment on above: Order Comment: Speci men Type: BLOOD SPECIMENOrdering Facility: [facility] Address: [address] [place], [place] [address] Performed By: #### 5 7021-8 ####[facility] LABCLIA [id number] [place] [address] [place] Lymphocytes (Bld) [#/Vol] 0.75 10*3/uL Low 1.00-4.00 [facility] Comment on above: Order Comment: Speci men Type: BLOOD SPECIMENOrdering Facility: [facility] Address: [address] [place], [place] [address] Performed By: #### 5 7021-8 ####[facility] LABCLIA [id number] [place] [address] [place] Lymphocytes/100 WBC (Bld) 18.2 % Normal [facility] Comment on above: Order Comment: Speci men Type: BLOOD SPECIMENOrdering Facility: [facility] Address: [address] [place], [place] [address] Performed By: #### 5 7021-8 ####[facility] HEME ONC LABCLIA [id number] [facility] [address] [place] [address] [place] MCH (RBC) [Entitic mass] 30.7 pg Normal 26.0-34.0 [facility] Comment on above: Order Comment: Speci men Type: BLOOD SPECIMENOrdering Facility: [facility] Address: [address] [place] [address] Performed By: #### 5 7021-8 ####[facility] HEME ONC LABCLIA [id number] [address] OF [place] MCHC (RBC) [Mass/Vol] 33.1 g/dL Normal 30.5-36.0 [facility] Comment on above: Order Comment: Speci men Type: BLOOD SPECIMENOrdering Facility: [facility] Address: [address] [place] [address] Performed By: #### 5 7021-8 ####[facility] HEME ONC LABCLIA [id number] [address] [facility] MCV (RBC) [Entitic vol] 92.8 fL Normal 80.0-100.0 [facility] Comment on above: Order Comment: Speci men Type: BLOOD SPECIMENOrdering Facility: [facility] Address: [address] [place] [address] Performed By: #### 5 7021-8 ####[facility] HEME ONC LABCLIA [id number] [address] [place] Monocytes (Bld) [#/Vol] 0.30 10*3/uL Normal <0.87 [facility] Comment on above: Order Comment: Speci men Type: BLOOD SPECIMENOrdering Facility: [facility] Address: [address] [place] [address] Performed By: #### 5 7021-8 ####[facility] LABCLIA [id number] [address] [place] Monocytes/100 WBC (Bld) 7.3 % Normal [facility] Comment on above: Order Comment: Speci men Type: BLOOD SPECIMENOrdering Facility: [facility] Address: [address] [place] [address] Performed By: #### 5 7021-8 ####[facility] LABCLIA [id number] [place] [address] [place] Neutrophils (Bld) [#/Vol] 3.00 10*3/uL Normal 1.45-7.50 [facility] Comment on above: Order Comment: Speci men Type: BLOOD SPECIMENOrdering Facility: [facility] Address: [address] Performed By: #### 5 7021-8 ####[facility] LABCLIA [id number] [place] [address] [place] Neutrophils/100 WBC (Bld) 72.8 % Normal [facility] Comment on above: Order Comment: Speci men Type: BLOOD SPECIMENOrdering Facility: [facility] Address: [address] Performed By: #### 5 7021-8 ####[facility] LABCLIA [id number] [place] [address] [place] Platelet mean volume (Bld) [Entitic vol] 10.0 fL Normal 9.0-12.7 [facility] Comment on above: Order Comment: Speci men Type: BLOOD SPECIMENOrdering Facility: [facility]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 [Volume fraction] 41.8 % Normal 41.0 - 52.0 [facility] Comment on above: Performed By: #### C BC #### [address] [address] Hemoglobin (Bld) [Mass/Vol] 13.0 g/dL Low 13.5 - 17.5 [facility] [facility] Comment on above: Performed By: #### C BC #### [address] [address] MCHC (RBC) [Mass/Vol] 31.1 g/dL Low 32.0 - 36.0 [facility] Comment on above: Performed By: #### C BC #### [address] [address] MCV (RBC) [Entitic vol] 100 fL Normal 80 - 100 [facility] [place] Comment on above: Performed By: #### C BC #### [address] [address] NUCLEATED RBC 0.0 /100 WBC Normal 0.0 - 0.0 [facility] Comment on above: Performed By: #### C BC #### [address] [address] Platelets (Bld) [#/Vol] 162 10*3/uL Normal 150 - 450 [facility] Comment on above: Performed By: #### C BC #### [address] [address] RBC 4.17 x10E12/L Low 4.50 - 5.90 [facility] Comment on above: Performed By: #### C BC #### [address] [address] WBC (Bld) [#/Vol] 5.5 10*3/uL Normal 4.4 - 11.3 [facility] Comment on above: Performed By: #### C BC #### [address] [address] Daily Progress Note-Medicine on 02-10-2022 Daily Progress Note-Medicine Service: Medicine Subjective Data: YEFRI YANEZ is a 57 year old Male who is Hospital Day # 5 and POD #4 for laparoscopic right radical nephrectomy. Patient seen and examined at bedside. He is in no acute distress, mild pain in the right side by the surgery incision is improving. Abdominal distention is much better today, he continues to have regular bowel movements. Still complaining of SOB but improving. and using incentive spirometry. He is oxygenating fine on room air. No headache, nausea, vomiting, chest pain, fever, chills, change in mental status. His blood pressure continues to increase at 154/104 which amlodipine was added and carvedilol dose was increased to 12.5 mg twice daily. He has been drinking water adequately and making urine after surgery. Overnight Events: Patient had an uneventful night. Objective Data: Objective Information: T PRBPMAPSpO2 [id number]% Date/Time02/10 8: 8: 8: 8: 8:00 Range(36.1C - 36.6C ) (57 - 80 ) (16 - 20 ) (138 - 167 )/ (91 - 126 ) (94% - 100% ) As of 09-Feb-2022 21:15:00, patient is on 3 L/min of oxygen via room air. Pain reported at 02/10 9:46: 0 = None ---- Intake and Output ----- Mn/Dy/Year TimeIntakeOutputNet Feb 10, 2022 6:00 [id number] Feb 09, 2022 10:00 [id number] Feb 09, 2022 2:00 [id number] The Intake and Output Totals for the last 24 hours are: [facility]Outun[facility]Net [id number] Physical Exam Narrative: Physical Exam: General: Appears stated age, well nourished, A&Ox3, laying in bed, in mild pain. Eyes: EOMI, PERRL. HEENT: Mucous membranes moist. Head/Neck: Atraumatic, Normocephalic. Neck supple Respiratory: equal air entry bilaterally, there are fine crackles @ lung bases bilaterally. Cardiovascular: regular rhythm, normal S1 and S2. no added sounds or murmurs, Gastrointestinal: abdomen distended but less than yesterday, mild RLQ tenderness over the laparoscopic incisions, bowel sounds present, no guarding or rebound. MSK: Normal range of motion, no joint swelling, no redness, Extremities: Normal appearing skin. No pitting edema in lower extremities. SCDs in place. Psychological: Appropriate mood, normal affect. Medication: Medications: Continuous Medications ------- No continuous medications are active Scheduled Medications ------- 1. Acetaminophen: 975 mg Oral Every 6 Hours 2. amLODIPine (NORVASC): 10 mg Oral Daily 3. Atorvastatin: 10 mg Oral At Bedtime 4. Carvedilol: 12.5 mg Oral 2 Times a Day 5. Cyclobenzaprine: 10 mg Oral 3 Times a Day 6. Dicyclomine: 10 mg Oral 3 Times a Day Before Meals 7. Docusate: 100 mg Oral 2 Times a Day 8. Heparin SubCutaneous: 5000 unit(s) SubCutaneous Every 8 Hours 9. Lidocaine 4% TransDermal: 1 patch TransDermal Every 24 Hours 10. Methocarbamol: 1000 mg Oral 4 Times a Day 11. Pantoprazole: 40 mg Oral Daily 12. Polyethylene Glycol: 17 gram(s) Oral Daily 13. Spironolactone: 25 mg Oral Daily PRN Medications ------- 1. Albuterol 2.5 mg/ 3 mL Nebulizer Soln: 3 mL Inhalation Morning and Evening 2. Bisacodyl Rectal: 10 mg Rectal Daily 3. Dextrose 50% in Water Injectable: 25 gram(s) IntraVenous Push Every 15 Minutes 4. Glucagon Injectable: 1 mg IntraMuscular Every 15 Minutes 5. HYDROmorphone Injectable: 0.2 mg IntraVenous Push Every 2 Hours 6. Magnesium Sulfate 2 gram/Sterile Water 50 mL Premix Soln: 2 gram(s) IntraVenous Piggyback Every 6 Hours 7. Magnesium Sulfate 4 gram/Sterile Water 100 mL Premix Soln: 4 gram(s) IntraVenous Piggyback Every 6 Hours 8. Ondansetron Injectable: 4 mg IntraVenous Push Every 6 Hours 9. oxyCODONE Immediate Release: 5 mg Oral Every 4 Hours 10. oxyCODONE Immediate Release: 10 mg Oral Every 4 Hours 11. Sore Throat Lozenge: 1 lozenge(s) Oral Every 2 Hours Recent Lab Results: Results: CBC: 02/10/2022 07:00 \ Hgb / \ 13.0 L / WBC Plt 5.5 162 / Hct \ / 41.8 \ RBC: 4.17 L MCV: 100 RFP: 02/10/2022 07:00 NA+ Cl- BUN / 141 103 21 / ------- Glucose -- 107 H K+ HCO3- Creat \ 3.9 31 1.48 H \ Calcium : 8.5 LAnion Gap : 11 Albumin : 3.4 Phos : 1.5 L Assessment and Plan: Daily Risk Screen: Does patient have an indwelling urinary cathetern/a consulting service Comorbidities: Comorbidityacute kidney injury Kidneyno further specification Code Status: Code StatusFull Code Assessment: 57-year-old male patient status post laparoscopic right radical nephrectomy who was admitted to the ICU because of acute postoperative respiratory failure was extubated overnight then transferred to floor, Medicine was consulted for recommendations. hemodynamically stable Except for increased blood pressure which was managed by amlodipine 10 mg and carvedilol 12.5 mg (more content not included)... Normal [facility] Daily Progress Note-Urologyo n 02-10-2022 Daily Progress Note-Urology Service: Urology Subjective Data: YEFRI YANEZ is a 57 year old Male who is Hospital Day # 5 and POD #4 for laparoscopic right radical nephrectomy. Patient seen and examined this morning. Denies N/V/F/C. Tolerating diet. Urinating well. Denies CP and SOB, currently not wear O2 this morning. Pain controlled. Passing flatus and having bowel function. No acute events overnight. Objective Data: Objective Information: T PRBPMAPSpO2 [id number]% Date/Time02/10 8: 8: 8: 8: 8:00 Range(36.1C - 36.6C ) (57 - 80 ) (16 - 20 ) (138 - 167 )/ (91 - 126 ) (94% - 100% ) As of 09-Feb-2022 21:15:00, patient is on 3 L/min of oxygen via nasal cannula. Pain reported at 02/10 0:00: 0 = None ---- Intake and Output ----- Mn/Dy/Year TimeIntakeOutputNet Feb 10, 2022 6:00 [id number] Feb 09, 2022 10:00 [id number] Feb 09, 2022 2:00 [id number] The Intake and Output Totals for the last 24 hours are: IntakeOutputNet [id number] Physical Exam by System: Constitutional: Well developed, awake/alert/oriented x3, no distress, alert and cooperative Respiratory/Thorax: Patent airways, diminished breath sounds, crackles noted at lung bases bilaterally, good chest expansion, thorax symmetric Cardiovascular: Regular, rate and rhythm, no murmurs, 2+ equal pulses of the extremities, normal S 1and S 2 Gastrointestinal: Mild distended, obese abdomen, soft, no rebound tenderness or guarding. Incision sites well approximated, no surrounding erythema, no drainage or induration. Appropriately TTP. Genitourinary: No mcgowan catheter Lymphatic: No significant lymphadenopathy Psychological: Appropriate mood and behavior Skin: Warm and dry, no lesions, no rashes Medication: Medications: Continuous Medications ------- No continuous medications are active Scheduled Medications ------- 1. Acetaminophen: 975 mg Oral Every 6 Hours 2. amLODIPine (NORVASC): 10 mg Oral Daily 3. Atorvastatin: 10 mg Oral At Bedtime 4. Carvedilol: 12.5 mg Oral 2 Times a Day 5. Cyclobenzaprine: 10 mg Oral 3 Times a Day 6. Dicyclomine: 10 mg Oral 3 Times a Day Before Meals 7. Docusate: 100 mg Oral 2 Times a Day 8. Heparin SubCutaneous: 5000 unit(s) SubCutaneous Every 8 Hours 9. Lidocaine 4% TransDermal: 1 patch TransDermal Every 24 Hours 10. Methocarbamol: 1000 mg Oral 4 Times a Day 11. Pantoprazole: 40 mg Oral Daily 12. Polyethylene Glycol: 17 gram(s) Oral Daily 13. Spironolactone: 25 mg Oral Daily PRN Medications ------- 1. Albuterol 2.5 mg/ 3 mL Nebulizer Soln: 3 mL Inhalation Morning and Evening 2. Bisacodyl Rectal: 10 mg Rectal Daily 3. Dextrose 50% in Water Injectable: 25 gram(s) IntraVenous Push Every 15 Minutes 4. Glucagon Injectable: 1 mg IntraMuscular Every 15 Minutes 5. HYDROmorphone Injectable: 0.2 mg IntraVenous Push Every 2 Hours 6. Magnesium Sulfate 2 gram/Sterile Water 50 mL Premix Soln: 2 gram(s) IntraVenous Piggyback Every 6 Hours 7. Magnesium Sulfate 4 gram/Sterile Water 100 mL Premix Soln: 4 gram(s) IntraVenous Piggyback Every 6 Hours 8. Ondansetron Injectable: 4 mg IntraVenous Push Every 6 Hours 9. oxyCODONE Immediate Release: 5 mg Oral Every 4 Hours 10. oxyCODONE Immediate Release: 10 mg Oral Every 4 Hours 11. Potassium Chloride 20 mEq/Sterile Water 100 mL Premix IVPB: 20 mEq IntraVenous Piggyback Every 6 Hours 12. Potassium Chloride Extended Release: 20 mEq Oral Every 6 Hours 13. Potassium Chloride Extended Release: 40 mEq Oral Every 6 Hours 14. Sore Throat Lozenge: 1 lozenge(s) Oral Every 2 Hours Recent Lab Results: Results: CBC: 02/10/2022 07:00 \ Hgb / \ 13.0 L / WBC Plt 5.5 162 / Hct \ / 41.8 \ RBC: 4.17 L MCV: 100 RFP: 02/10/2022 07:00 NA+ Cl- BUN / 141 103 21 / ------- Glucose -- 107 H K+ HCO3- Creat \ 3.9 31 1.48 H \ Calcium : 8.5 LAnion Gap : 11 Albumin : 3.4 Phos : 1.5 L Radiology Results: Results: Impression: 1. No acute finding. Xray Chest 1 View [Feb 06 2022 8:46PM] Assessment and Plan: Code Status: Code StatusFull Code Assessment: POD#4: s/p laparoscopic right radical nephrectomy #Renal cell carcinoma - surgery as above - GIS/low fiber diet - pain control - Nausea: antiemetics PRN - DVT prophylaxis heparin 5000u SQ Q8. Can resume Coumadin on Wednesday02/11/22 - Encourage OOB and IS - No mcgowan catheter - urinating well #Acute on chronic respiratory failure - Medicine on consult - Pulmonary toileting - Encourage IS - May need oxygen upon discharge #Renal insufficiency - BUN/SCr downtreading 28/03.48 today from 01/04. yesterday - s/p right nephrectomy #Atrial fibrillation - Can resume coumadin on Wednesday02/11/22 #HTN #CHF - Medicine on c (more content not included)... Normal [facility] PT Evaluation v2-physical th eraon 02-10-2022 PT Evaluation v2-physical therapy Rehab: Info: Mode of Treatmentphysical therapy Time IN09:58 Time OUT10:08 Total Treatment [id number] Patient in ... at end of sessionbed, 3 railings up Communicated with ... at end of sessionbedside nurse Patient Effortgood Symptoms Noted During/After Treatmentnone Patient Profile Reviewedyes Onset of Illness/Injury or Date of [id number] Reason for Referralimpaired mobility, gait training, impaired cognition/safety awareness Referring PhysicianDr. Hernandez General Observations of PatientCleared by nursing to work with patient. Pt supine in bed with HOB elevated. Pt in no apparent distress and willing to participate in therapy. RN agreeable to have patient out of bed and into chair. Pertinent History of Current Functional [id number] male patient status post laparoscopic right radical nephrectomy who was admitted to the ICU because of acute postoperative respiratory failure was extubated overnight then transferred to floor, Medicine was consulted for recommendations. hemodynamically stable. Assessment & Recommendation: #Acute post operative respiratory failure # Atelectasis #Renal insufficiency #Abdominal pain/distention #Postoperative constipation #Afib #NIMCO #CHF #HTN #GERD #HLD Hearing Precautions/LimitationsWF L Precautions/Limitationsfa ll precautions Ambulation Skills - Previous Level of FunctionPt lives in a ranch home with 0 JADEN. Pt is able to ambulate with no device. 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 does IADLs. Pt denies falls. Line and Tubestelemetry Vision/Cognition: Affect/Mental Status (Cognitive)WNL Orientation Status (Cognition)oriented x 4 ROM: Lower Extremity: Range of Motionleft lower extremity ROM WFL; right lower extremity ROM WFL MMT: Lower Extremity: Manual Muscle Testing (MMT)left lower extremity strength WFL; right lower extremity strength WFL Mobility/Tone: Bed Mobility Assessment/Interventionss upine to sit [id number] [place] (Bed Mobility)independent Transfer Assessment/Interventionss it to stand transfer; stand to sit transfer Sit-Stand [place] (Transfers)modified independence Sit-Stand Assistive Device (Transfers)walker, front-wheeled Stand-Sit [place] (Transfers)modified independence Stand-Sit Assistive Device (Transfers)walker, front-wheeled Gait/Stairs Locomotiongait/ambulation assistive device; gait/ambulation independence; distance ambulated Gait Locomotion (Gait)modified independence Assistive Device (Gait Training)walker, front-wheeled Distance in Feet (Gait Training)250 ft WFLs Motor: Sitting, Static (Balance)good balance Sitting, Dynamic (Balance)good balance Zsv-zo-Mterx (Balance)good balance Standing, Static (Balance)good balance Standing, Dynamic (Balance)good balance Sensory: Pre-Treatment Pain Rating0/10 - no pain Post-Treatment Pain Rating2/10 Comment, Pre/Post Treatment Painsoreness reported at incision site Sensory General Assessmentno sensation deficits identified Health: Observed Emotional Statecooperative; pleasant Plan of Care Reviewed Withpatient Impression: Criteria for Skilled Therapeutic Interventions Met (PT Eval)yes; treatment indicated PT LunidnzflF78.2 difficulty walking Physical Therapy Prognosisgood System Pathology/Pathophysiology Noted (PT Eval)musculoskeletal Impairments Found (PT Eval)aerobic capacity/endurance; gait, locomotion, and balance; muscle performance Functional Limitations in Following Categorieshome management; self-care; mobility/gait Assessment (PT Eval)Pt demonstrates slight weakness and slightly impaired gait/balance. Pt is near baseline level of function and will benefit from skilled therapy in the hospital to get back to baseline. Once stable enough for discharge patient may benefit from a low intensity therapy in the home to ensure safety getting into the home and with functioning throughout the home to avoid falls. Rehab Potential (PT Eval)good, to achieve stated therapy goals Therapy Frequency (PT Eval)5 times/wk Predicted Duration of Therapy Czefczsrebja67 days Planned Therapy Interventions (PT Eval)balance training; bed mobility training; gait training; patient/family education; strengthening; transfer training Outcomes Tools: Turning from your back to your side while in a flat bed without using bedrails none Moving from lying on your back to sitting on the side of a flat bed without using bedrailsnone Moving to and from bed to chair (including a wheelchair)none Standing up from a chair using your arms (e.g. wheelchair or bedside chair) none To walk in hospital rooma sarita Climbing 3-5 steps with railinga sarita AM-PAC (PT) Total Score22 Short Term Goals: Gait: Established Gait: [place] Level Goalindependent Gait: Distance [id number] ft Gait: Time Frame for Goal2 wks Balance: Established Ba (more content not included)... Normal [facility] RENAL FUNCTION PANELon 02-10 Albumin [Mass/Vol] 3.4 g/dL Normal 3.4 - 5.0 [facility] Comment on above: Performed By: #### C BC #### [address] [address] Anion gap [Moles/Vol] 11 mmol/L Normal 10 - 20 [facility] Comment on above: Performed By: #### C BC #### [address] [address] Calcium [Mass/Vol] 8.5 mg/dL Low 8.6 - 10.3 [facility] Comment on above: Performed By: #### C BC #### [address] [place] [address] Chloride [Moles/Vol] 103 mmol/L Normal 98 - 107 [facility] Comment on above: Performed By: #### C BC #### [address] [address] Creatinine [Mass/Vol] 1.48 mg/dL High 0.50 - 1.30 [facility] Comment on above: Performed By: #### C BC #### [address] [address] GFR/1.73 sq M.predicted among non-blacks MDRD (S/P/Bld) [Vol rate/Area] 54 mL/min/{1.73_m2} Abnormal >90 [facility] Comment on above: Result Comment: CALC ULATIONS OF ESTIMATED GFR ARE PERFORMED USING THE 2020 CKD-EPI STUDY REFIT EQUATION WITHOUT THE RACE VARIABLE FOR THE IDMS-TRACEABLE CREATININE METHODS. https://jasn.asnjournals.org/content/early//ASN.2020 594286 Performed By: #### C BC #### [address] [address] Glucose [Mass/Vol] 107 mg/dL High 74 - 99 [facility] Comment on above: Performed By: #### C BC #### [address] [address] HCO3 (Bld) [Moles/Vol] 31 mmol/L Normal 21 - 32 [facility] Comment on above: Performed By: #### C BC #### [address] [address] Phosphate [Mass/Vol] 1.5 mg/dL Low 2.5 - 4.9 [facility] Comment on above: Result Comment: The performance characteristics of phosphorus testing in heparinized plasma have been validated by the individual laboratory site where testing is performed. Testing on heparinized plasma is not approved by the FDA; however, such approval is not necessary. Performed By: #### C BC #### [address] [address] Potassium [Moles/Vol] 3.9 mmol/L Normal 3.5 - 5.3 [facility] Comment on above: Performed By: #### C BC #### [address] [address] Sodium [Moles/Vol] 141 mmol/L Normal 136 - 145 [facility] Comment on above: Performed By: #### C BC #### [address] [address] Urea nitrogen [Mass/Vol] 21 mg/dL Normal 6 - 23 [facility] Comment on above: Performed By: #### C BC #### [address] [address] CBCon 02-09-2022 Erythrocyte distribution width (RBC) [Ratio] 19.1 % High 11.5 - 14.5 [facility] Comment on above: Performed By: #### C BC #### [address] [address] Hematocrit (Bld) [Volume fraction] 43.1 % Normal 41.0 - 52.0 [facility] Comment on above: Performed By: #### C BC #### [address] [address] Hemoglobin (Bld) [Mass/Vol] 13.5 g/dL Normal 13.5 - 17.5 [facility] Comment on above: Performed By: #### C BC #### [address] [address] MCHC (RBC) [Mass/Vol] 31.3 g/dL Low 32.0 - 36.0 [facility] Comment on above: Performed By: #### C BC #### [address] [address] MCV (RBC) [Entitic vol] 100 fL Normal 80 - 100 [facility] [place] Comment on above: Performed By: #### C BC #### [address] [address] NUCLEATED RBC 0.0 /100 WBC Normal 0.0 - 0.0 [facility] Comment on above: Performed By: #### C BC #### [address] [place] [address] Platelets (Bld) [#/Vol] 150 10*3/uL Normal 150 - 450 [facility] Comment on above: Performed By: #### C BC #### [address] [place] [address] RBC 4.29 x10E12/L Low 4.50 - 5.90 [facility] Comment on above: Performed By: #### C BC #### [address] [place] [address] WBC (Bld) [#/Vol] 5.8 10*3/uL Normal 4.4 - 11.3 [facility] Comment on above: Performed By: #### C BC #### [address] [place] [address] Daily Progress Note-Medicine on 02-09-2022 Daily Progress Note-Medicine Service: Medicine Subjective Data: YEFRI YANEZ is a 57 year old Male who is Hospital Day # 4 and POD #3 for laparoscopic right radical nephrectomy. Patient seen and examined at bedside. He is in no acute distress, mild pain in the right side by the surgery incision is improving. Abdominal distention is better especially after he had two bowel movements. Still complaining of SOB and using NC for which incentive spirometry reinforced. No headache, nausea, vomiting, chest pain, fever, chills, change in mental status. He is vitally stable. He has been drinking water adequately and making urine after surgery. Overnight Events: Patient had an uneventful night. Objective Data: Objective Information: T PRBPMAPSpO2 [id number]/[id number]% Date/Time02/09 8: 8: 8: 8: 8:00 Range(36.4C - 37C ) (55 - 105 ) (18 - 20 ) (131 - 154 )/ (85 - 115 ) (94% - 100% ) As of 08-Feb-2022 21:38:00, patient is on 3 L/min of oxygen via nasal cannula. Highest temp of 37 C was recorded at 02/08 20:00 Pain reported at 02/08 21:38: 3 = Mild ---- Intake and Output ----- Mn/Dy/Year TimeIntakeOutputNet Feb 09, 2022 6:00 [id number] Feb 08, 2022 10:00 [id number] Feb 08, 2022 2:00 [id number] The Intake and Output Totals for the last 24 hours are: [facility] [id number] Physical Exam Narrative: Physical Exam: General: Appears stated age, well nourished, A&Ox3, laying in bed, in mild pain. Eyes: EOMI, PERRL. HEENT: Mucous membranes moist. Head/Neck: Atraumatic, Normocephalic. Neck supple Respiratory: equal air entry bilaterally, there are fine crackles @ lung bases bilaterally. Cardiovascular: regular rhythm, normal S1 and S2. no added sounds or murmurs, Gastrointestinal: abdomen distended but less than yesterday, mild RLQ tenderness over the laparoscopic incisions, bowel sounds present, no guarding or rebound. MSK: Normal range of motion, no joint swelling, no redness, Extremities: Normal appearing skin. No pitting edema in lower extremities. SCDs in place. Psychological: Appropriate mood, normal affect. Medication: Medications: Continuous Medications ------- No continuous medications are active Scheduled Medications ------- 1. Acetaminophen: 975 mg Oral Every 6 Hours 2. amLODIPine (NORVASC): 10 mg Oral Daily 3. Atorvastatin: 10 mg Oral At Bedtime 4. Carvedilol: 6.25 mg Oral Daily 5. Cyclobenzaprine: 10 mg Oral 3 Times a Day 6. Dicyclomine: 10 mg Oral 3 Times a Day Before Meals 7. Docusate: 100 mg Oral 2 Times a Day 8. Heparin SubCutaneous: 5000 unit(s) SubCutaneous Every 8 Hours 9. Lidocaine 4% TransDermal: 1 patch TransDermal Every 24 Hours 10. Methocarbamol: 1000 mg Oral 4 Times a Day 11. Pantoprazole: 40 mg Oral Daily 12. Polyethylene Glycol: 17 gram(s) Oral Daily 13. Spironolactone: 25 mg Oral Daily PRN Medications ------- 1. Albuterol 2.5 mg/ 3 mL Nebulizer Soln: 3 mL Inhalation Morning and Evening 2. Bisacodyl Rectal: 10 mg Rectal Daily 3. Dextrose 50% in Water Injectable: 25 gram(s) IntraVenous Push Every 15 Minutes 4. Glucagon Injectable: 1 mg IntraMuscular Every 15 Minutes 5. HYDROmorphone Injectable: 0.2 mg IntraVenous Push Every 2 Hours 6. Magnesium Sulfate 2 gram/Sterile Water 50 mL Premix Soln: 2 gram(s) IntraVenous Piggyback Every 6 Hours 7. Magnesium Sulfate 4 gram/Sterile Water 100 mL Premix Soln: 4 gram(s) IntraVenous Piggyback Every 6 Hours 8. Ondansetron Injectable: 4 mg IntraVenous Push Every 6 Hours 9. oxyCODONE Immediate Release: 5 mg Oral Every 4 Hours 10. oxyCODONE Immediate Release: 10 mg Oral Every 4 Hours 11. Potassium Chloride 20 mEq/Sterile Water 100 mL Premix IVPB: 20 mEq IntraVenous Piggyback Every 6 Hours 12. Potassium Chloride Extended Release: 20 mEq Oral Every 6 Hours 13. Potassium Chloride Extended Release: 40 mEq Oral Every 6 Hours Recent Lab Results: Results: CBC: 02/09/2022 05:54 \ Hgb / \ 13.5 / WBC Plt 5.8 150 / Hct \ / 43.1 \ RBC: 4.29 L MCV: 100 RFP: 02/09/2022 05:54 NA+ Cl- BUN / 141 102 25 H / ------- Glucose -- 127 H K+ HCO3- Creat \ 4.3 33 H 1.84 H \ Calcium : 8.8Anion Gap : 10 Albumin : 3.5 Phos : 2.8 Assessment and Plan: Daily Risk Screen: Does patient have an indwelling urinary cathetern/a consulting service Comorbidities: Comorbidityacute kidney injury Kidneyno further specification Code Status: Code StatusFull Code Assessment: 57-year-old male patient status post laparoscopic right radical nephrectomy who was admitted to the ICU because of acute postoperative respiratory failure was extubated overnight then transferred to floor, Medicine was consulted for recommendations. hemodynamically stable. Assessment & Recom (more content not included)... Normal [facility] Daily Progress Note-Urologyo n 02-09-2022 Daily Progress Note-Urology Service: Urology Subjective Data: YEFRI YANEZ is a 57 year old Male who is Hospital Day # 4 and POD #3 for laparoscopic right radical nephrectomy. Patient seen and examined this morning. Denies nausea and vomiting. Pain controlled. Passing flatus and had a bowel movement yesterday. Denies CP and SOB, continues on 4L NC this morning. Currently up in chair. Tolerating diet. Urinating well. Objective Data: Objective Information: T PRBPMAPSpO2 [id number]% Date/Time02/09 8: 8: 8: 8: 8:00 Range(36.4C - 37C ) (55 - 105 ) (18 - 20 ) (131 - 154 )/ (85 - 115 ) (94% - 100% ) As of 08-Feb-2022 21:38:00, patient is on 3 L/min of oxygen via nasal cannula. Highest temp of 37 C was recorded at 02/08 20:00 Pain reported at 02/08 21:38: 3 = Mild ---- Intake and Output ----- Mn/Dy/Year TimeIntakeOutputNet Feb 09, 2022 6:00 [id number] Feb 08, 2022 10:00 [id number] Feb 08, 2022 2:00 [id number] The Intake and Output Totals for the last 24 hours are: IntakeOutputNet [id number] Physical Exam by System: Constitutional: Well developed, awake/alert/oriented x3, no distress, alert and cooperative Respiratory/Thorax: Patent airways, diminished breath sounds, crackles noted at lung bases bilaterally, good chest expansion, thorax symmetric Cardiovascular: Regular, rate and rhythm, no murmurs, 2+ equal pulses of the extremities, normal S 1and S 2 Gastrointestinal: Mild distended, obese abdomen, soft, no rebound tenderness or guarding. Incision sites well approximated, no surrounding erythema, no drainage or induration. Appropriately TTP. Genitourinary: No mcgowan catheter Lymphatic: No significant lymphadenopathy Psychological: Appropriate mood and behavior Skin: Warm and dry, no lesions, no rashes Medication: Medications: Continuous Medications ------- No continuous medications are active Scheduled Medications ------- 1. Acetaminophen: 975 mg Oral Every 6 Hours 2. Atorvastatin: 10 mg Oral At Bedtime 3. Carvedilol: 6.25 mg Oral Daily 4. Cyclobenzaprine: 10 mg Oral 3 Times a Day 5. Dicyclomine: 10 mg Oral 3 Times a Day Before Meals 6. Docusate: 100 mg Oral 2 Times a Day 7. Heparin SubCutaneous: 5000 unit(s) SubCutaneous Every 8 Hours 8. Lidocaine 4% TransDermal: 1 patch TransDermal Every 24 Hours 9. Methocarbamol: 1000 mg Oral 4 Times a Day 10. Pantoprazole: 40 mg Oral Daily 11. Polyethylene Glycol: 17 gram(s) Oral Daily 12. Spironolactone: 25 mg Oral Daily PRN Medications ------- 1. Albuterol 2.5 mg/ 3 mL Nebulizer Soln: 3 mL Inhalation Morning and Evening 2. Bisacodyl Rectal: 10 mg Rectal Daily 3. Dextrose 50% in Water Injectable: 25 gram(s) IntraVenous Push Every 15 Minutes 4. Glucagon Injectable: 1 mg IntraMuscular Every 15 Minutes 5. HYDROmorphone Injectable: 0.2 mg IntraVenous Push Every 2 Hours 6. Magnesium Sulfate 2 gram/Sterile Water 50 mL Premix Soln: 2 gram(s) IntraVenous Piggyback Every 6 Hours 7. Magnesium Sulfate 4 gram/Sterile Water 100 mL Premix Soln: 4 gram(s) IntraVenous Piggyback Every 6 Hours 8. Ondansetron Injectable: 4 mg IntraVenous Push Every 6 Hours 9. oxyCODONE Immediate Release: 5 mg Oral Every 4 Hours 10. oxyCODONE Immediate Release: 10 mg Oral Every 4 Hours 11. Potassium Chloride 20 mEq/Sterile Water 100 mL Premix IVPB: 20 mEq IntraVenous Piggyback Every 6 Hours 12. Potassium Chloride Extended Release: 20 mEq Oral Every 6 Hours 13. Potassium Chloride Extended Release: 40 mEq Oral Every 6 Hours Recent Lab Results: Results: CBC: 02/09/2022 05:54 \ Hgb / \ 13.5 / WBC Plt 5.8 150 / Hct \ / 43.1 \ RBC: 4.29 L MCV: 100 RFP: 02/09/2022 05:54 NA+ Cl- BUN / 141 102 25 H / ------- Glucose -- 127 H K+ HCO3- Creat \ 4.3 33 H 1.84 H \ Calcium : 8.8Anion Gap : 10 Albumin : 3.5 Phos : 2.8 Radiology Results: Results: Impression: 1. No acute finding. Xray Chest 1 View [Feb 06 2022 8:46PM] Assessment and Plan: Code Status: Code StatusFull Code Assessment: POD#3: s/p laparoscopic right radical nephrectomy #Renal cell carcinoma - surgery as above - GIS/low fiber diet - pain control - Nausea: antiemetics PRN - DVT prophylaxis heparin 5000u SQ Q8. Can resume Coumadin on Wednesday02/11/22 - Encourage OOB and IS - No mcgowan catheter - urinating well #Acute on chronic respiratory failure - Medicine on consult - Remains on 4L NC this morning - Pulmonary toileting - Encourage IS - May need oxygen upon discharge #Renal insufficiency - BUN/SCr slight decrease 25/1.84 today from 07/04.90 yesterday - s/p right nephrectomy #Atrial fibrillation - Can resume coumadin on Wednesday02/11/22 #HTN #CHF - Medicine on consult - ap (more content not included)... Normal [facility] Discharge Planning Oawy6in 04-12-2021 Discharge Planning Note2 Discharge Planning: Needs Prior to Discharge (ex. Home Care Orders, IV/O2 prescriptions) TBD pending therapy evaluations and weaning off O2 Planned Dispositionhome Patient/Case Work Aide Stated Goalto go home Anticipated Discharge [id number] Discharge Planning 02/09/2022 1100- This TCC met with the patient at the bedside. Patient with no use of HHC or DME prior to admission. Patient currently on 3L of O2 with no prior home O2 use. This TCC verified the patient's ability to obtain/afford medications. Patient's needs are TBD at this time, pending therapy evaluations. Patient lives at home in [place] with Miya and plans to return there. Family to provide transport at the time of d/c. Kitty Farias RN TCC 02/10- PT recs HHC. This TCC met with the pt at the bedside. Pt is currently refusing HHC, at this time. However, pt wants a walker. This TCC received a walker script and sent a referral to [facility] for delivery. Family to provide transport at the time of d/c. Cameron Atwood Assessment: Discharge Planning Assessment [id number] Discharge Planning Assessment Completed Kevin Farias Primary Contact Name and NumberwifeMiya [phone] Prior Level of FunctioningIndependent Lives Withspouse Stated Reason for Admissionright laparoscopic nephrectomy [facility] [place] Recent Falls/ Injury/ Need Assist with Ambulationn/a Home Care Agency/Support ServicesN/A Resource/Environmental Concernsnone Anticipated [facility] Anticipated at Transitionnone Readmission Within the Last 30 Daysno previous admission in last 30 days PCP Last Date Seenlast month InsuranceMMO Super Med Special Considerationsn/a Transportation Home Who/HowFamily (, Miya [phone]) Medication Adherence/Afford/Obtainye s Discharge Documentation: Discharge/Transfer Date/[id number] 18:00 Discharged Accompanied Byspouse Transportation Methodprivate car Discharge Modewheelchair Code StatusCode Status order at time of discharge: Full Code Discharge Order Writtenyes [place] DNR Form Sent with Patient and/or Familyn/a Valuables/Medications/Bel ongings Returnedyes Final Disposition.Home Electronic Signatures: Kitty Farias (STAFF N) (Signed 09-Feb-2022 11:10) Authored: Discharge Planning, Assessment, Discharge Documentation Cameron Atwood (RN) (Signed 10-Feb-2022 11:44) Authored: Discharge Planning, Discharge Documentation Marysol Hussein (STAFF N) (Signed 10-Feb-2022 18:21) Authored: Discharge Planning, Discharge Documentation Last Updated: 10-Feb-2022 18:21 by Marysol Hussein (STAFF N) Normal [facility] RENAL FUNCTION PANELon 02-09 Albumin [Mass/Vol] 3.5 g/dL Normal 3.4 - 5.0 [facility] Comment on above: Performed By: #### C BC #### [address] [address] Anion gap [Moles/Vol] 10 mmol/L Normal 10 - 20 [facility] Comment on above: Performed By: #### C BC #### [address] [address] Calcium [Mass/Vol] 8.8 mg/dL Normal 8.6 - 10.3 [facility] Comment on above: Performed By: #### C BC #### [address] [address] Chloride [Moles/Vol] 102 mmol/L Normal 98 - 107 [facility] Comment on above: Performed By: #### C BC #### [address] [address] Creatinine [Mass/Vol] 1.84 mg/dL High 0.50 - 1.30 [facility] Comment on above: Performed By: #### C BC #### [address] [address] GFR/1.73 sq M.predicted among non-blacks MDRD (S/P/Bld) [Vol rate/Area] 42 mL/min/{1.73_m2} Abnormal >90 [facility] Comment on above: Result Comment: CALC ULATIONS OF ESTIMATED GFR ARE PERFORMED USING THE 2020 CKD-EPI STUDY REFIT EQUATION WITHOUT THE RACE VARIABLE FOR THE IDMS-TRACEABLE CREATININE METHODS. https://jasn.asnjournals.org/content/ASN 490918 Performed By: #### C BC #### [address] [place] [address] Glucose [Mass/Vol] 127 mg/dL High 74 - 99 [facility] Comment on above: Performed By: #### C BC #### [address] [address] HCO3 (Bld) [Moles/Vol] 33 mmol/L High 21 - 32 [facility] Comment on above: Performed By: #### C BC #### [address] [address] Phosphate [Mass/Vol] 2.8 mg/dL Normal 2.5 - 4.9 [facility] Comment on above: Result Comment: The performance characteristics of phosphorus testing in heparinized plasma have been validated by the individual laboratory site where testing is performed. Testing on heparinized plasma is not approved by the FDA; however, such approval is not necessary. Performed By: #### C BC #### [address] [address] Potassium [Moles/Vol] 4.3 mmol/L Normal 3.5 - 5.3 [facility] Comment on above: Performed By: #### C BC #### [address] [address] Sodium [Moles/Vol] 141 mmol/L Normal 136 - 145 [facility] Comment on above: Performed By: #### C BC #### [address] [address] Urea nitrogen [Mass/Vol] 25 mg/dL High 6 - 23 [facility] Comment on above: Performed By: #### C BC #### [address] [address] CBCon 02-08-2022 Erythrocyte distribution width (RBC) [Ratio] 19.7 % High 11.5 - 14.5 [facility] Comment on above: Performed By: #### C BC #### [address] [address] Hematocrit (Bld) [Volume fraction] 46.7 % Normal 41.0 - 52.0 [facility] Comment on above: Performed By: #### C BC #### [address] [address] Hemoglobin (Bld) [Mass/Vol] 14.0 g/dL Normal 13.5 - 17.5 [facility] Comment on above: Performed By: #### C BC #### [address] [address] MCHC (RBC) [Mass/Vol] 30.0 g/dL Low 32.0 - 36.0 [facility] Comment on above: Performed By: #### C BC #### [address] [address] MCV (RBC) [Entitic vol] 106 fL High 80 - 100 [facility] Comment on above: Performed By: #### C BC #### [address] [address] NUCLEATED RBC 0.3 /100 WBC Normal 0.0 - 0.0 [facility] Comment on above: Performed By: #### C BC #### [address] [address] Platelets (Bld) [#/Vol] 123 10*3/uL Low 150 - 450 [facility] Comment on above: Performed By: #### C BC #### [address] [address] RBC 4.42 x10E12/L Low 4.50 - 5.90 [facility] Comment on above: Performed By: #### C BC #### [address] [address] WBC (Bld) [#/Vol] 6.8 10*3/uL Normal 4.4 - 11.3 [facility] Comment on above: Performed By: #### C BC #### [address] [address] COMPREHENSIVE PANELon 2021 Albumin [Mass/Vol] 3.5 g/dL Normal 3.4 - 5.0 [facility] Comment on above: Performed By: #### C MP #### [address] [address] ALP [Catalytic activity/Vol] 54 U/L Normal 33 - 120 [facility] Comment on above: Performed By: #### C MP #### [address] [address] ALT [Catalytic activity/Vol] 121 U/L High 10 - 52 [facility] Comment on above: Result Comment: Hyun ents treated with Sulfasalazine may generate falsely decreased results for ALT. Performed By: #### C MP #### [address] [address] Anion gap [Moles/Vol] 14 mmol/L Normal 10 - 20 [facility] Comment on above: Performed By: #### C MP #### [address] [address] AST [Catalytic activity/Vol] 83 U/L High 9 - 39 [facility] Comment on above: Result Comment: MILD HEMOLYSIS DETECTED. The result may be falsely elevated due to hemolysis or other interferents. Clinical correlation is recommended. Repeat testing may be considered. Performed By: #### C MP #### [address] [address] Bilirubin [Mass/Vol] 0.9 mg/dL Normal 0.0 - 1.2 [facility] Comment on above: Performed By: #### C MP #### [address] [address] Calcium [Mass/Vol] 8.5 mg/dL Low 8.6 - 10.3 [facility] Comment on above: Performed By: #### C MP #### [address] [address] Chloride [Moles/Vol] 103 mmol/L Normal 98 - 107 [facility] Comment on above: Performed By: #### C MP #### [address] [place] [address] Creatinine [Mass/Vol] 1.90 mg/dL High 0.50 - 1.30 [facility] Comment on above: Performed By: #### C MP #### [address] [place] [address] GFR/1.73 sq M.predicted among non-blacks MDRD (S/P/Bld) [Vol rate/Area] 40 mL/min/{1.73_m2} Abnormal >90 [facility] Comment on above: Result Comment: CALC ULATIONS OF ESTIMATED GFR ARE PERFORMED USING THE 2020 CKD-EPI STUDY REFIT EQUATION WITHOUT THE RACE VARIABLE FOR THE IDMS-TRACEABLE CREATININE METHODS. https://jasn.asnjournals.org/content/early//ASN.2020 539404 Performed By: #### C MP #### [address] [address] Glucose [Mass/Vol] 92 mg/dL Normal 74 - 99 [facility] Comment on above: Performed By: #### C MP #### [address] [address] HCO3 (Bld) [Moles/Vol] 24 mmol/L Normal 21 - 32 [facility] Comment on above: Performed By: #### C MP #### [address] [address] Potassium [Moles/Vol] 4.2 mmol/L Normal 3.5 - 5.3 [facility] Comment on above: Result Comment: MILD HEMOLYSIS DETECTED. The result may be falsely elevated due to hemolysis or other interferents. Clinical correlation is recommended. Repeat testing may be considered. Performed By: #### C MP #### [address] [place] [address] Protein [Mass/Vol] 6.0 g/dL Low 6.4 - 8.2 [facility] Comment on above: Performed By: #### C MP #### [address] [place] [address] Sodium [Moles/Vol] 137 mmol/L Normal 136 - 145 [facility] Comment on above: Performed By: #### C MP #### [facility] [address] [address] [place] [address] Urea nitrogen [Mass/Vol] 31 mg/dL High 6 - [facility] Comment on above: Performed By: #### C MP #### [facility] [address] [place] [address] Daily Progress Note-Medicine on 02-08-2022 Daily Progress Note-Medicine Service: Medicine Subjective Data: YEFRI YANEZ is a 57 year old Male who is Hospital Day # 3 and POD #2 for laparoscopic right radical nephrectomy. Patient seen and examined at bedside. He is in no acute distress, complaining of mild pain in the right side by the surgery incision Along with abdominal distention. No headache, nausea, vomiting, chest pain, fever, chills, change in mental status. He is vitally stable. He has been drinking water adequately and making urine after surgery, no bowel movements yet but has been passing gas. Overnight Events: Patient had an uneventful night. Objective Data: Objective Information: T PRBPMAPSpO2 [id number] % Date/Time02/08 8: 8: 8: 8: 11: 8:00 Range(35.9C - 37.1C ) (63 - 105 ) (15 - 30 ) (93 - 149 )/ (70 - 115 ) (75 - 102 ) (92% - 99% ) As of 08-Feb-2022 08:45:00, patient is on 3 L/min of oxygen via nasal cannula. Highest temp of 37.1 C was recorded at 02/07 16:00 Pain reported at 02/08 8:45: 3 = Mild ---- Intake and Output ----- Mn/Dy/Year TimeIntakeOutputNet Feb 08, 2022 6:00 [id number] Feb 07, 2022 10:00 [id number] Feb 07, 2022 2:00 pm228.8250-22 The Intake and Output Totals for the last 24 hours are: [facility] [id number] Physical Exam Narrative: Physical Exam: General: Appears stated age, well nourished, A&Ox3, laying in bed, in mild pain. Eyes: EOMI, PERRL. HEENT: Mucous membranes moist. Head/Neck: Atraumatic, Normocephalic. Neck supple Respiratory: equal air entry bilaterally, there are fine crackles @ lung bases bilaterally. Cardiovascular: regular rhythm, normal S1 and S2. no added sounds or murmurs, Gastrointestinal: abdomen distended, mild RLQ tenderness over the laparoscopic incisions, bowel sounds present, no guarding or rebound. MSK: Normal range of motion, no joint swelling, no redness, Extremities: Normal appearing skin. No pitting edema in lower extremities. SCDs in place. Psychological: Appropriate mood, normal affect. Medication: Medications: Continuous Medications ------- No continuous medications are active Scheduled Medications ------- 1. Acetaminophen: 975 mg Oral Every 6 Hours 2. Atorvastatin: 10 mg Oral At Bedtime 3. Carvedilol: 6.25 mg Oral Daily 4. Cyclobenzaprine: 10 mg Oral 3 Times a Day 5. Docusate: 100 mg Oral 2 Times a Day 6. Heparin SubCutaneous: 5000 unit(s) SubCutaneous Every 8 Hours 7. Lidocaine 4% TransDermal: 1 patch TransDermal Every 24 Hours 8. Methocarbamol: 1000 mg Oral 4 Times a Day 9. Pantoprazole: 40 mg Oral Daily 10. Polyethylene Glycol: 17 gram(s) Oral Daily 11. Spironolactone: 25 mg Oral Daily PRN Medications ------- 1. Albuterol 2.5 mg/ 3 mL Nebulizer Soln: 3 mL Inhalation Morning and Evening 2. Bisacodyl Rectal: 10 mg Rectal Daily 3. Dextrose 50% in Water Injectable: 25 gram(s) IntraVenous Push Every 15 Minutes 4. Glucagon Injectable: 1 mg IntraMuscular Every 15 Minutes 5. HYDROmorphone Injectable: 0.2 mg IntraVenous Push Every 2 Hours 6. Magnesium Sulfate 2 gram/Sterile Water 50 mL Premix Soln: 2 gram(s) IntraVenous Piggyback Every 6 Hours 7. Magnesium Sulfate 4 gram/Sterile Water 100 mL Premix Soln: 4 gram(s) IntraVenous Piggyback Every 6 Hours 8. Ondansetron Injectable: 4 mg IntraVenous Push Every 6 Hours 9. oxyCODONE Immediate Release: 5 mg Oral Every 4 Hours 10. oxyCODONE Immediate Release: 10 mg Oral Every 4 Hours 11. Potassium Chloride 20 mEq/Sterile Water 100 mL Premix IVPB: 20 mEq IntraVenous Piggyback Every 6 Hours 12. Potassium Chloride Extended Release: 20 mEq Oral Every 6 Hours 13. Potassium Chloride Extended Release: 40 mEq Oral Every 6 Hours Recent Lab Results: Results: CBC: 02/08/2022 06:30 \ Hgb / \ 14.0 / WBC Plt 6.8 123 L / Hct \ / 46.7 \ RBC: 4.42 L MCV: 106 H CMP: 02/08/2022 06:30 NA+ Cl- BUN / 137 103 31 H / ------- Glucose -- 92 K+ HCO3- Creat \ 4.2 24 1.90 H \ \ T Bili / \ 0.9 / AST x ---- x ALT 83 Hx ---- x 121 H / Alk P \ / 54 \ Calcium : 8.5 L Anion Gap : 14 Albumin : 3.5 T Protein : 6.0 L Assessment and Plan: Daily Risk Screen: Does patient have an indwelling urinary cathetern/a consulting service Comorbidities: Comorbidityacute kidney injury Kidneyno further specification Code Status: Code StatusFull Code Assessment: 57-year-old male patient status post laparoscopic right radical nephrectomy postoperative day 1 who was admitted to the ICU because of acute postoperative respiratory failure was extubated overnight then transferred to floor, Medicine was consulted for recommendations. hemodynamically stable. Assessment & Recommendation: #Acute post operative respiratory failure # Atelectasi (more content not included)... Normal [facility] Daily Progress Note-Urologyo n 02-08-2022 Daily Progress Note-Urology Service: Urology Subjective Data: YEFRI YANEZ is a 57 year old Male who is Hospital Day # 3 and POD #2 for laparoscopic right radical nephrectomy. Additional Information: Tolerating clears but minimal flatus. Pain reasonably well controlled. Denies any chest pain or shortness of breath. Has only ambulated to the bathroom but not further. No other complaints. Objective Data: Objective Information: T PRBPMAPSpO2 [id number] % Date/Time02/08 8: 8: 8: 8: 11: 8:00 Range(35.9C - 37.1C ) (63 - 105 ) (15 - 30 ) (93 - 149 )/ (70 - 115 ) (75 - 102 ) (92% - 99% ) As of 08-Feb-2022 04:00:00, patient is on 3 L/min of oxygen via BiPAP. Highest temp of 37.1 C was recorded at 02/07 16:00 Pain reported at 02/08 4:40: 5 = Moderate ---- Intake and Output ----- Mn/Dy/Year TimeIntakeOutputNet Feb 08, 2022 6:00 [id number] Feb 07, 2022 10:00 [id number] Feb 07, 2022 2:00 pm228.8250-22 The Intake and Output Totals for the last 24 hours are: IntakeOutputNet [id number] Physical Exam Narrative: Physical Exam: General: in NAD, appears stated age Head: normocephalic, atraumatic Respiratory: normal effort, no use of accessory muscles Cardiovascular: no edema noted Abdomen: Soft, mildly distended, appropriately tender, no rebound or guarding Incisions: Clean, dry, and intact Neurologic: grossly intact, oriented to person/place/time Psychiatric: mode and affect appropriate Recent Lab Results: Results: CBC: 02/08/2022 06:30 \ Hgb / \ 14.0 / WBC Plt 6.8 123 L / Hct \ / 46.7 \ RBC: 4.42 L MCV: 106 H CMP: 02/08/2022 06:30 NA+ Cl- BUN / 137 103 31 H / ------- Glucose -- 92 K+ HCO3- Creat \ 4.2 24 1.90 H \ \ T Bili / \ 0.9 / AST x ---- x ALT 83 Hx ---- x 121 H / Alk P \ / 54 \ Calcium : 8.5 L Anion Gap : 14 Albumin : 3.5 T Protein : 6.0 L Assessment and Plan: Daily Risk Screen: Does patient have an indwelling urinary catheteryes Plan for indwelling urinary catheter removal todayyes Code Status: Code StatusFull Code Impression 1: Right renal mass Plan for Impression 1: Postoperative day #2 status post laparoscopic right cytoreductive nephrectomy. Advance diet to soft. Give Dulcolax suppository. Increase activity level. Impression 2: Hypertension Plan for Impression 2: We will discuss restarting home meds with primary medicine service. Electronic Signatures: Andre Mota) (Signed 08-Feb-2022 10:32) Authored: Service, Subjective Data, Objective Data, Assessment and Plan, Note Completion Last Updated: 08-Feb-2022 10:32 by Andre Mota) Normal [facility] ARTERIAL FULL PANELon 2021 OXY HGB 92.9 % Low 94.0 - 98.0 [facility] Comment on above: Result Comment: Test report has been amended to note detection of an absorbance or turbidity error which may cause inaccurate results. The result is unchanged but should be interpreted with caution and in conjunction with additional laboratory information. This is a corrected result. Previous value was Test report has been amended to note detection of an absorbance or turbidity error which may cause inaccurate results. The result is unchanged but should be interpreted with caution and in conjunction with additional laboratory information.@92.9, verified at 02/07/2022 08:50 Performed By: #### C BC #### [facility] [address] [place] [address] 93 % Low 94 - 100 [facility] Comment on above: Result Comment: Test report has been amended to note detection of an absorbance or turbidity error which may cause inaccurate results. The result is unchanged but should be interpreted with caution and in conjunction with additional laboratory information. This is a corrected result. Previous value was Test report has been amended to note detection of an absorbance or turbidity error which may cause inaccurate results. The result is unchanged but should be interpreted with caution and in conjunction with additional laboratory information.@93, verified at 02/07/2022 08:50 Performed By: #### C BC #### [address] [place] [address] LANRE'S TEST[COLLATERAL CIRCULATION] YES, RR Normal [facility] Comment on above: Performed By: #### C BC #### [address] [place] [address] Anion gap [Moles/Vol] 9 mmol/L Low 10 - 25 [facility] Comment on above: Performed By: #### C BC #### [address] [place] [address] BASE EXCESS-BLOOD 2.9 mmol/L Normal -2.0 - 3.0 [facility] Comment on above: Performed By: #### C BC #### [address] [place] [address] BICARB, CALCULATED 31.0 mmol/L High 22.0 - 26.0 [facility] Comment on above: Performed By: #### C BC #### [address] [address] CALCIUM,IONIZED 1.17 mmol/L Normal 1.10 - 1.33 [facility] Comment on above: Performed By: #### C BC #### [address] [address] Chloride [Moles/Vol] 105 mmol/L Normal 98 - 107 [facility] Comment on above: Performed By: #### C BC #### [address] [address] EPAP CMH2O 8.0 cm H2O Normal [facility] Comment on above: Performed By: #### C BC #### [address] [place] [address] FLOW 8.0 LPM Normal [facility] Comment on above: Performed By: #### C BC #### [address] [place] [address] Glucose [Mass/Vol] 117 mg/dL High 74 - 99 [facility] Comment on above: Performed By: #### C BC #### [address] [place] [address] Hematocrit (Bld) [Volume fraction] 40.0 % Low 41.0 - 52.0 [facility] Comment on above: Performed By: #### C BC #### [address] [place] [address] Hemoglobin (Bld) [Mass/Vol] 13.2 g/dL Normal 13.5 - 17.5 [facility] Comment on above: Result Comment: Test report has been amended to note detection of an absorbance or turbidity error which may cause inaccurate results. The result is unchanged but should be interpreted with caution and in conjunction with additional laboratory information. Performed By: #### C BC #### [address] [place] [address] IPAP CMH2O 16.0 cm H2O Normal [facility] Comment on above: Performed By: #### C BC #### [address] [place] [address] Lactate [Moles/Vol] 0.9 mmol/L Normal 0.4 - 2.0 [facility] Comment on above: Performed By: #### C BC #### [address] [place] [address] Oxygen (Bld) [Partial pressure] 95 mm[Hg] Normal 85 - 95 [facility] Comment on above: Performed By: #### C BC #### [address] [place] [address] PATIENT TEMPERATURE 37.0 degrees C Normal [facility] Comment on above: Result Comment: NOTE : PATIENT RESULTS ARE NOT CORRECTED FOR TEMPERATURE. Performed By: #### C BC #### [facility] [id number] [place] [address]. [place] [address] PCO2 63 mmHg High 38 - 42 [facility] Comment on above: Performed By: #### C BC #### [facility] [id number] [place] [address] pH (Bld) 7.30 [pH] Low 7.38 - 7.42 [facility] Comment on above: Performed By: #### C BC #### [address] [address] Potassium [Moles/Vol] 4.6 mmol/L Normal 3.5 - 5.3 [facility] Comment on above: Performed By: #### C BC #### [address] [address] Sodium [Moles/Vol] 140 mmol/L Normal 136 - 145 [facility] Comment on above: Performed By: #### C BC #### [address] [address] VENTILATOR MODE BiPAP Normal [facility] Comment on above: Performed By: #### C BC #### [address] [address] LANRE'S TEST[COLLATERAL CIRCULATION] N/A Normal [facility] Comment on above: Order Comment: BIPAP 14/8 4 LPM Performed By: #### A FPA4 ####[address] [address] Anion gap [Moles/Vol] 11 mmol/L Normal 10 - 25 [facility] Comment on above: Order Comment: BIPAP 14/8 4 LPM Performed By: #### A FPA4 ####[address] [address] BASE EXCESS-BLOOD 1.5 mmol/L Normal -2.0 - 3.0 [facility] Comment on above: Order Comment: BIPAP 14/8 4 LPM Performed By: #### A FPA4 ####[address] [address] BICARB, CALCULATED 30.3 mmol/L High 22.0 - 26.0 [facility] Comment on above: Order Comment: BIPAP 19/10 4 LPM Performed By: #### A FPA4 ####[address] [address] CALCIUM,IONIZED 1.18 mmol/L Normal 1.10 - 1.33 [facility] Comment on above: Order Comment: BIPAP 19/10 4 LPM Performed By: #### A FPA4 ####[address] [address] Chloride [Moles/Vol] 104 mmol/L Normal 98 - 107 [facility] Comment on above: Order Comment: BIPAP 19/10 4 LPM Performed By: #### A FPA4 ####[address] [address] Glucose [Mass/Vol] 168 mg/dL High 74 - 99 [facility] Comment on above: Order Comment: BIPAP 19/10 LPM Performed By: #### A FPA4 ####[address] [address] Hematocrit (Bld) [Volume fraction] 42.0 % Normal 41.0 - 52.0 [facility] Comment on above: Order Comment: BIPAP 19/10 4 LPM Performed By: #### A FPA4 ####[address] [address] Hemoglobin (Bld) [Mass/Vol] 14.1 g/dL Normal 13.5 - 17.5 [facility] Comment on above: Order Comment: BIPAP 19/10 4 LPM Performed By: #### A FPA4 ####[address] [address] Lactate [Moles/Vol] 0.9 mmol/L Normal 0.4 - 2.0 [facility] Comment on above: Order Comment: BIPAP 19/10 4 LPM Performed By: #### A FPA4 ####[address] [address] OXY HGB 87.0 % Low 94.0 - 98.0 [facility] Comment on above: Order Comment: BIPAP 14/8 4 LPM Performed By: #### A FPA4 ####[address] [address] Oxygen (Bld) [Partial pressure] 63 mm[Hg] Low 85 - 95 [facility] Comment on above: Order Comment: BIPAP 14/8 4 LPM Performed By: #### A FPA4 ####[address] [address] PATIENT TEMPERATURE 37.0 degrees C Normal [facility] Comment on above: Order Comment: BIPAP 14/8 4 LPM Result Comment: NOTE : PATIENT RESULTS ARE NOT CORRECTED FOR TEMPERATURE. Performed By: #### A FPA4 ####[address] [address] PCO2 66 mmHg High 38 - 42 [facility] Comment on above: Order Comment: BIPAP 14/8 4 LPM Performed By: #### A FPA4 ####[address] [address] pH (Bld) 7.27 [pH] Low 7.38 - 7.42 [facility] Comment on above: Order Comment: BIPAP 14/8 4 LPM Performed By: #### A FPA4 ####[address] [address] Potassium [Moles/Vol] 4.4 mmol/L Normal 3.5 - 5.3 [facility] Comment on above: Order Comment: BIPAP 14/8 4 LPM Performed By: #### A FPA4 ####[address] [address] SO2 89 % Low 94 - 100 [facility] Comment on above: Order Comment: BIPAP 14/8 4 LPM Performed By: #### A FPA4 ####[address] [address] Sodium [Moles/Vol] 141 mmol/L Normal 136 - 145 [facility] Comment on above: Order Comment: BIPAP 14/8 4 LPM Performed By: #### A FPA4 ####[address] [address] CBCon 02-07-2022 Erythrocyte distribution width (RBC) [Ratio] 19.1 % High 11.5 - 14.5 [facility] Comment on above: Performed By: #### C BC ####[address] [address] Hematocrit (Bld) [Volume fraction] 43.1 % Normal 41.0 - 52.0 [facility] Comment on above: Performed By: #### C BC ####[address] [address] Hemoglobin (Bld) [Mass/Vol] 13.6 g/dL Normal 13.5 - 17.5 [facility] Comment on above: Performed By: #### C BC ####[address] [address] MCHC (RBC) [Mass/Vol] 31.6 g/dL Low 32.0 - 36.0 [facility] Comment on above: Performed By: #### C BC ####[address] [address] MCV (RBC) [Entitic vol] 100 fL Normal 80 - 100 [facility] Comment on above: Performed By: #### C BC ####[address] [address] NUCLEATED RBC 0.4 /100 WBC Normal 0.0 - 0.0 [facility] Comment on above: Performed By: #### C BC ####[address] [address] Platelets (Bld) [#/Vol] 150 10*3/uL Normal 150 - 450 [facility] Comment on above: Performed By: #### C BC ####[address] [address] RBC 4.32 x10E12/L Low 4.50 - 5.90 [facility] Comment on above: Performed By: #### C BC ####[address] [address] WBC (Bld) [#/Vol] 7.1 10*3/uL Normal 4.4 - 11.3 [facility] Comment on above: Performed By: #### C ####[facility] [place] [address] Consult-DACR, Medicineon Consult-DACR, Medicine Service: Service: DACR Medicine Consult: Consult requested by (Attending Name): Aravind Hernandez Reason: medicine consult, urology as primary History of Present Illness: Admission Reason: Rt. nephrectomy HPI: YEFRI YANEZ is a 57 year old Male with past medical history of NIMCO, hypertension, CHF (EF 35%), GERD, hyperlipidemia, paroxysmal A. fib (on warfarin), COPD, and renal cell carcinoma who is postoperative day 1 status post laparoscopic right radical nephrectomy. The medical team was consulted for postoperative management. Of note, patient was recently admitted to outside hospital with CHF exacerbation and pneumonia postponing original surgery date. He was discharged with Cefdinir x 7 days and Lasix 40 mg p.o. daily for 14 days, ICU course: He was admitted to the ICU because of postoperative respiratory failure requiring continued mechanical ventilation. During his ICU stay he was hemodynamically stable his map was above 70 no vasopressors have been used. He was extubated around 10 PM last night. The patient seen and examined this afternoon with his at bedside. The patient was complaining of shortness of breath and unable to expectorate phlegm as he has difficulty in coughing. In addition, he complains of right lower quadrant discomfort possibly from surgical incisions. He denied chest pain, fever, nausea vomiting, headache, lower limb pain. He was on 3 L nasal cannula. Allergies: lisinopril: Swelling/Edema penicillin: Unknown aspirin: Unknown Shell Fish: Unknown Mushrooms: Unknown Objective: Objective Information: T PRBPMAPSpO2 [id number]% Date/Time02/07 16: 16: 16: 16: 11: 16:00 Range(35.9C - 37.1C ) (73 - 100 ) (15 - 30 ) (93 - 141 )/ (70 - 99 ) (75 - 125 ) (83% - 99% ) As of 07-Feb-2022 16:00:00, patient is on 4 L/min of oxygen via nasal cannula. Highest temp of 37.1 C was recorded at 12 16:00 Physical Exam Narrative: Physical Exam: General: Appears stated age, well nourished, A&Ox3, sitting comfortably on the edge of the bed, in mild pain. On 3L NC. Eyes: EOMI, PERRL. HEENT: Mucous membranes moist. Head/Neck: Atraumatic, Normocephalic. Neck supple Respiratory: equal air entry bilaterally, there are fine crackles @ lung bases bilaterally. Cardiovascular: regular rhythm, normal S1 and S2. no added sounds or murmurs, Gastrointestinal: soft, mild RLQ tenderness over the laparoscopic incisions, bowel sounds present, no guarding or rebound. MSK: Normal range of motion, no joint swelling, no redness, Extremities: Normal appearing skin. No pitting edema in lower extremities. SCDs in place. Psychological: Appropriate mood, normal affect. Medications: Medications: Continuous Medications ------- No continuous medications are active Scheduled Medications ------- 1. Acetaminophen: 975 mg Oral Every 6 Hours 2. Atorvastatin: 10 mg Oral At Bedtime 3. Cyclobenzaprine: 10 mg Oral 3 Times a Day 4. Docusate: 100 mg Oral 2 Times a Day 5. Heparin SubCutaneous: 5000 unit(s) SubCutaneous Every 8 Hours 6. Lidocaine 4% TransDermal: 1 patch TransDermal Every 24 Hours 7. Methocarbamol: 1000 mg Oral 4 Times a Day 8. Pantoprazole: 40 mg Oral Daily 9. Polyethylene Glycol: 17 gram(s) Oral Daily PRN Medications ------- 1. Dextrose 50% in Water Injectable: 25 gram(s) IntraVenous Push Every 15 Minutes 2. Glucagon Injectable: 1 mg IntraMuscular Every 15 Minutes 3. HYDROmorphone Injectable: 0.2 mg IntraVenous Push Every 2 Hours 4. Magnesium Sulfate 2 gram/Sterile Water 50 mL Premix Soln: 2 gram(s) IntraVenous Piggyback Every 6 Hours 5. Magnesium Sulfate 4 gram/Sterile Water 100 mL Premix Soln: 4 gram(s) IntraVenous Piggyback Every 6 Hours 6. Ondansetron Injectable: 4 mg IntraVenous Push Every 6 Hours 7. oxyCODONE Immediate Release: 5 mg Oral Every 4 Hours 8. oxyCODONE Immediate Release: 10 mg Oral Every 4 Hours 9. Potassium Chloride 20 mEq/Sterile Water 100 mL Premix IVPB: 20 mEq IntraVenous Piggyback Every 6 Hours 10. Potassium Chloride Extended Release: 20 mEq Oral Every 6 Hours 11. Potassium Chloride Extended Release: 40 mEq Oral Every 6 Hours Currently Suspended Medications ------- 1. Carvedilol - PEDS: 6.25 mg Oral Daily 2. Spironolactone: 25 mg Oral Daily Recent Lab Results: Results: I have reviewed these laboratory results: Arterial Full Panel 07-Feb-2022 08:48:00 ResultValue pH, Arterial 7.30 L pCO2, Arterial 63 H pO2, Arterial 95 PATIENT TEMPERATURE, Arterial 37.0 SO2, Arterial 93 L Oxy Hgb, Arterial 92.9 L HCT CALCULATED, Arterial 40.0 L SODIUM, Arterial 140 Potassium- Arterial 4.6 CL 105 CALCIUM, IONIZED, Arterial 1.17 GLUCOSE, Arterial 117 H LACTATE, Arterial 0.9 BASE EXCESS-BLOOD, Arterial 2.9 Bi (more content not included)... Normal [facility] Daily Progress Note - Critic joi Farmer 02-07-2022 Daily Progress Note - Critical Care Subjective Data: ID Statement: YEFRI YANEZ is a 57 year old Male who is Hospital Day # 2 and ICU Day #2 and POD #1 for laparoscopic right radical nephrectomy. AAOx3, on nasal cannula. No complaints of pain on exam. Resting comfortably. Objective Data: Objective Information T PRBPMAPSpO2 [id number]% Date/Time02/07 4: 7: 7: 7: 7: 7:00 Range(35.9C - 36.6C ) (76 - 100 ) (15 - 30 ) (108 - 141 )/ (72 - 99 ) (90 - 125 ) (83% - 99% ) As of 07-Feb-2022 00:00:00, patient is on 8 L/min of oxygen via BiPAP; ventilator assisted; 21/10. Pain reported at 02/07 4:00: 0 = None ---- Intake and Output ----- [facility]Dy[facility] Feb 07, 2022 6:00 [phone] Feb 06, 2022 10:00 pm28.8200-172 The Intake and Output Totals for the last 24 hours are: IntakeOutputNet [id number] Drain and tube details (included in I&O totals) 1100 cc Indwelling Catheter - Urethral( 07-Feb-2022 06:00:00 ) Date: Weight/Scale Type: 07-Feb-2022 06:83970.7 kg / bed 06-Feb-2022 09:05524 kg 06-Feb-2022 09:56820 kg Physical Exam by System: Neurological: alert and oriented x3, intact senses, motor, response and reflexes, normal strength Cardiovascular: Regular, rate and rhythm, no murmurs, 2+ equal pulses of the extremities, normal S 1and S 2 Respiratory/Thorax: Patent airways, CTAB, normal breath sounds with good chest expansion, thorax symmetric Genitourinary: No Discharge, vesicles or other abnormalities Gastrointestinal: Nondistended, soft, non-tender, no rebound tenderness or guarding, no masses palpable, no organomegaly, +BS, no bruits Skin: Warm and dry, no lesions, no rashes, lap sites x4 Musculoskeletal: ROM intact, no joint swelling, normal strength Constitutional: Well developed, awake/alert/oriented x3, no distress, alert and cooperative Eyes: PERRL, EOMI, clear sclera ENMT: mucous membranes moist, no apparent injury, no lesions seen Head/Neck: Neck supple, no apparent injury, thyroid without mass or tenderness, No JVD, trachea midline, no bruits Extremities: normal extremities, no cyanosis edema, contusions or wounds, no clubbing Lymphatic: No significant lymphadenopathy Psychological: Appropriate mood and behavior RASS: Burnett Agitation Sedation Scale (RASS): 0 (alert and calm) spontaneously pays attention to caregiver Allergies: Allergies: lisinopril: Swelling/Edema penicillin: Unknown aspirin: Unknown Shell Fish: Unknown Mushrooms: Unknown Medications: Medications: Continuous Medications ------- No continuous medications are active Scheduled Medications ------- 1. Acetaminophen: 975 mg Oral Every 6 Hours 2. Atorvastatin: 10 mg Oral At Bedtime 3. Cyclobenzaprine: 10 mg Oral 3 Times a Day 4. Docusate: 100 mg Oral 2 Times a Day 5. Heparin SubCutaneous: 5000 unit(s) SubCutaneous Every 8 Hours 6. Lidocaine 4% TransDermal: 1 patch TransDermal Every 24 Hours 7. Methocarbamol: 1000 mg Oral 4 Times a Day 8. Pantoprazole: 40 mg Oral Daily 9. Polyethylene Glycol: 17 gram(s) Oral Daily PRN Medications ------- 1. Dextrose 50% in Water Injectable: 25 gram(s) IntraVenous Push Every 15 Minutes 2. Glucagon Injectable: 1 mg IntraMuscular Every 15 Minutes 3. HYDROmorphone Injectable: 0.2 mg IntraVenous Push Every 2 Hours 4. Magnesium Sulfate 2 gram/Sterile Water 50 mL Premix Soln: 2 gram(s) IntraVenous Piggyback Every 6 Hours 5. Magnesium Sulfate 4 gram/Sterile Water 100 mL Premix Soln: 4 gram(s) IntraVenous Piggyback Every 6 Hours 6. Ondansetron Injectable: 4 mg IntraVenous Push Every 6 Hours 7. oxyCODONE Immediate Release: 5 mg Oral Every 4 Hours 8. oxyCODONE Immediate Release: 10 mg Oral Every 4 Hours 9. Potassium Chloride 20 mEq/Sterile Water 100 mL Premix IVPB: 20 mEq IntraVenous Piggyback Every 6 Hours 10. Potassium Chloride Extended Release: 20 mEq Oral Every 6 Hours 11. Potassium Chloride Extended Release: 40 mEq Oral Every 6 Hours Currently Suspended Medications ------- 1. Carvedilol - PEDS: 6.25 mg Oral Daily 2. Spironolactone: 25 mg Oral Daily Recent Lab Results: Results: CBC: 02/07/2022 04:56 \ Hgb / \ 13.6 / WBC Plt 7.1 150 / Hct \ / 43.1 \ RBC: 4.32 L MCV: 100 RFP: 02/07/2022 04:56 NA+ Cl- BUN / 145 107 25 H / ------- Glucose -- 115 H K+ HCO3- Creat \ 4.6 29 1.57 H \ Calcium : 8.4 LAnion Gap : 14 Albumin : 3.7 Phos : 6.1 H Coagulation: 02/06/2022 10:01 PT / 14.3 H / -------< INR < 1.2 H PTT\ \ Recent Arterial Blood Gas Results 02/07/2022 08:48 [id number] 24 h range: ( 60 - 95 ) pH7.30 24 h range: ( 7.26 - 7.45 ) [id number] 24 h range: ( 46 - 68 ) SO293 24 h range: ( 87 (more content not included)... Normal [facility] Daily Progress Note-Urologyo n 02-07-2022 Daily Progress Note-Urology Service: Urology Subjective Data: YEFRI YANEZ is a 57 year old Male who is Hospital Day # 2 and POD #1 for laparoscopic right radical nephrectomy. Additional Information: Extubated last night approximately at 10 PM. Stable overnight. Resting comfortably this morning. Denies shortness of breath or chest pain. Abdominal pain reasonably well controlled. No nausea or vomiting noted. Objective Data: Objective Information: T PRBPMAPSpO2 [id number]% Date/Time02/07 4: 7: 7: 7: 7: 7:00 Range(35.9C - 36.6C ) (76 - 100 ) (15 - 30 ) (108 - 141 )/ (72 - 99 ) (90 - 125 ) (83% - 99% ) As of 07-Feb-2022 00:00:00, patient is on 8 L/min of oxygen via BiPAP; ventilator assisted; 21/10. Pain reported at 02/07 4:00: 0 = None ---- Intake and Output ----- Mn/Dy/Year TimeIntakeOutputNet Feb 07, 2022 6:00 [phone] Feb 06, 2022 10:00 [phone] The Intake and Output Totals for the last 24 hours are: IntakeOutputNet [id number] Physical Exam Narrative: Physical Exam: General: in NAD, appears stated age Head: normocephalic, atraumatic Respiratory: normal effort, no use of accessory muscles Cardiovascular: no edema noted Abdomen: Soft, nondistended, appropriately tender, no rebound or guarding Incisions: Clean, dry, and intact Urine: Clear Neurologic: grossly intact, oriented to person/place/time Psychiatric: mode and affect appropriate Recent Lab Results: Results: CBC: 02/07/2022 04:56 \ Hgb / \ 13.6 / WBC Plt 7.1 150 / Hct \ / 43.1 \ RBC: 4.32 L MCV: 100 RFP: 02/07/2022 04:56 NA+ Cl- BUN / 145 107 25 H / ------- Glucose -- 115 H K+ HCO3- Creat \ 4.6 29 1.57 H \ Calcium : 8.4 LAnion Gap : 14 Albumin : 3.7 Phos : 6.1 H Coagulation: 02/06/2022 10:01 PT / 14.3 H / -------< INR < 1.2 H PTT\ \ Recent Arterial Blood Gas Results 02/06/2022 23:49 [id number] 24 h range: ( 60 - 85 ) pH7.27 24 h range: ( 7.26 - 7.45 ) [id number] 24 h range: ( 46 - 68 ) SO289 24 h range: ( 87 - 98 ) Base Excess1.5 24 h range: ( 1.4 - 6.9 )null Assessment and Plan: Daily Risk Screen: Does patient have an indwelling urinary catheteryes Plan for indwelling urinary catheter removal todayyes Comorbidities: Comorbidityrespiratory failure Acuity of Respiratory Failureacute on chronic Additional Respiratory Failure Specificityunspecified Code Status: Code StatusFull Code Impression 1: Renal cell carcinoma Plan for Impression 1: Postop day #1 status post laparoscopic right nephrectomy. Remove Mcgowan. Clear liquid diet. Slowly advance as patient develops bowel function. Impression 2: Respiratory insufficiency Plan for Impression 2: Wean oxygen as tolerated. Appreciate critical care input. Electronic Signatures: Andre Mota) (Signed 07-Feb-2022 07:33) Authored: Service, Subjective Data, Objective Data, Assessment and Plan, Note Completion Last Updated: 07-Feb-2022 07:33 by Andre Mota) Normal [facility] GLUCOSE-POCTon 02-07-2022 Glucose [Mass/Vol] 124 mg/dL High 74 - 99 [facility] Comment on above: Performed By: #### G STEFANI ####[id number] [place] [address] MAGNESIUMon 02-07-2022 Magnesium [Mass/Vol] 1.98 mg/dL Normal 1.60 - 2.40 [facility] Comment on above: Performed By: #### M G ####[id number] [place] [address] RENAL FUNCTION PANELon 02-07 Albumin [Mass/Vol] 3.7 g/dL Normal 3.4 - 5.0 [facility] Comment on above: Performed By: #### R ENAL #### [facility] [address] [place] [address] Anion gap [Moles/Vol] 14 mmol/L Normal 10 - 20 [facility] Comment on above: Performed By: #### R ENAL #### [address] [place] [address] Calcium [Mass/Vol] 8.4 mg/dL Low 8.6 - 10.3 [facility] Comment on above: Performed By: #### R ENAL #### [address] [address] Chloride [Moles/Vol] 107 mmol/L Normal 98 - 107 [facility] Comment on above: Performed By: #### R ENAL #### [address] [place] [address] Creatinine [Mass/Vol] 1.57 mg/dL High 0.50 - 1.30 [facility] Comment on above: Performed By: #### R ENAL #### [address] [address] GFR/1.73 sq M.predicted among non-blacks MDRD (S/P/Bld) [Vol rate/Area] 51 mL/min/{1.73_m2} Abnormal >90 [facility] Comment on above: Result Comment: CALC ULATIONS OF ESTIMATED GFR ARE PERFORMED USING THE 2020 CKD-EPI STUDY REFIT EQUATION WITHOUT THE RACE VARIABLE FOR THE IDMS-TRACEABLE CREATININE METHODS. https://jasn.asnjournals.org/content/early/ASN.2020 498516 Performed By: #### R ENAL #### [address] [place] [address] Glucose [Mass/Vol] 115 mg/dL High 74 - 99 [facility] Comment on above: Performed By: #### R ENAL #### [address] [place] [address] HCO3 (Bld) [Moles/Vol] 29 mmol/L Normal 21 - 32 [facility] Comment on above: Performed By: #### R ENAL #### [address] [place] [address] Phosphate [Mass/Vol] 6.1 mg/dL High 2.5 - 4.9 [facility] Comment on above: Result Comment: The performance characteristics of phosphorus testing in heparinized plasma have been validated by the individual laboratory site where testing is performed. Testing on heparinized plasma is not approved by the FDA; however, such approval is not necessary. Performed By: #### R ENAL #### [address] [place] [address] Potassium [Moles/Vol] 4.6 mmol/L Normal 3.5 - 5.3 [facility] Comment on above: Performed By: #### R ENAL #### [address] [place] [address] Sodium [Moles/Vol] 145 mmol/L Normal 136 - 145 [facility] Comment on above: Performed By: #### R ENAL #### [address] [place] [address] Urea nitrogen [Mass/Vol] 25 mg/dL High 6 - 23 [facility] Comment on above: Performed By: #### R ENAL #### [address] [place] [address] ABO/RH GROUP TESTon 02-07-20 22 ABO TYPE Canceled Normal [facility] Comment on above: Order Comment: TEST ABO/RH GROUP TEST WAS CANCELLED, 02/06/2022 15:57 not needed. Performed By: #### C BC #### [address] [place] [address] RH TYPE Canceled Normal [facility] Comment on above: Order Comment: TEST ABO/RH GROUP TEST WAS CANCELLED, 02/06/2022 15:57 not needed. Performed By: #### C BC #### [address] [place] [address] ARTERIAL FULL PANELon 2021 LANRE'S TEST[COLLATERAL CIRCULATION] N/A Normal [facility] Comment on above: Order Comment: 4 LPM NC Performed By: #### A FPA4 #### [address] [place] [address] Anion gap [Moles/Vol] 10 mmol/L Normal 10 - 25 [facility] Comment on above: Order Comment: 4 LPM NC Performed By: #### A FPA4 #### [address] [address] BASE EXCESS-BLOOD 1.4 mmol/L Normal -2.0 - 3.0 [facility] Comment on above: Order Comment: 4 LPM NC Performed By: #### A FPA4 #### [address] [address] BICARB, CALCULATED 30.5 mmol/L High 22.0 - 26.0 [facility] Comment on above: Order Comment: 4 LPM NC Performed By: #### A FPA4 #### [address] [address] CALCIUM,IONIZED 1.17 mmol/L Normal 1.10 - 1.33 [facility] Comment on above: Order Comment: 4 LPM NC Performed By: #### A FPA4 #### [address] [address] Chloride [Moles/Vol] 105 mmol/L Normal 98 - 107 [facility] Comment on above: Order Comment: 4 LPM NC Performed By: #### A FPA4 #### [address] [address] Glucose [Mass/Vol] 142 mg/dL High 74 - 99 [facility] Comment on above: Order Comment: 4 LPM NC Performed By: #### A FPA4 #### [address] [address] Hematocrit (Bld) [Volume fraction] 43.0 % Normal 41.0 - 52.0 [facility] Comment on above: Order Comment: 4 LPM NC Performed By: #### A FPA4 #### [address] [address] Hemoglobin (Bld) [Mass/Vol] 14.3 g/dL Normal 13.5 - 17.5 [facility] Comment on above: Order Comment: 4 LPM NC Performed By: #### A FPA4 #### [address] [address] Lactate [Moles/Vol] 1.0 mmol/L Normal 0.4 - 2.0 [facility] Comment on above: Order Comment: 4 LPM NC Performed By: #### A FPA4 #### [address] [address] OXY HGB 84.3 % Low 94.0 - 98.0 [facility] Comment on above: Order Comment: 4 LPM NC Performed By: #### A FPA4 #### [address] [address] Oxygen (Bld) [Partial pressure] 60 mm[Hg] Low 85 - 95 [facility] Comment on above: Order Comment: 4 LPM NC Performed By: #### A FPA4 #### [address] [address] PATIENT TEMPERATURE 37.0 degrees C Normal [facility] Comment on above: Order Comment: 4 LPM NC Result Comment: NOTE : PATIENT RESULTS ARE NOT CORRECTED FOR TEMPERATURE. Performed By: #### A FPA4 #### [address] [address] PCO2 68 mmHg High 38 - 42 [facility] Comment on above: Order Comment: 4 LPM NC Performed By: #### A FPA4 #### [address] [address] pH (Bld) 7.26 [pH] Low 7.38 - 7.42 [facility] Comment on above: Order Comment: 4 LPM NC Performed By: #### A FPA4 #### [address] [address] Potassium [Moles/Vol] 4.0 mmol/L Normal 3.5 - 5.3 [facility] Comment on above: Order Comment: 4 LPM NC Performed By: #### A FPA4 #### [address] [address] SO2 87 % Low 94 - 100 [facility] Comment on above: Order Comment: 4 LPM NC Performed By: #### A FPA4 #### [address] [address] Sodium [Moles/Vol] 141 mmol/L Normal 136 - 145 [facility] Comment on above: Order Comment: 4 LPM NC Performed By: #### A FPA4 #### [address] [address] Anion gap [Moles/Vol] 6 mmol/L Low 10 - 25 [facility] Comment on above: Performed By: #### A FPA4 ####[address] [address] BASE EXCESS-BLOOD 6.9 mmol/L High -2.0 - 3.0 [facility] Comment on above: Performed By: #### A FPA4 ####[address] [address] BICARB, CALCULATED 32.0 mmol/L High 22.0 - 26.0 [facility] Comment on above: Performed By: #### A FPA4 ####[address] [address] CALCIUM,IONIZED 1.16 mmol/L Normal 1.10 - 1.33 [facility] Comment on above: Performed By: #### A FPA4 ####[address] [address] Chloride [Moles/Vol] 106 mmol/L Normal 98 - 107 [facility] Comment on above: Performed By: #### A FPA4 ####[address] [address] Glucose [Mass/Vol] 146 mg/dL High 74 - 99 [facility] Comment on above: Performed By: #### A FPA4 ####[address] [address] Hematocrit (Bld) [Volume fraction] 42.0 % Normal 41.0 - 52.0 [facility] Comment on above: Performed By: #### A FPA4 ####[address] [address] Hemoglobin (Bld) [Mass/Vol] 14.1 g/dL Normal 13.5 - 17.5 [facility] Comment on above: Performed By: #### A FPA4 ####[address] [address] Lactate [Moles/Vol] 1.2 mmol/L Normal 0.4 - 2.0 [facility] Comment on above: Performed By: #### A FPA4 ####[address] [address] OXY HGB 95.3 % Normal 94.0 - 98.0 [facility] Comment on above: Performed By: #### A FPA4 ####[address] [address] Oxygen (Bld) [Partial pressure] 84 mm[Hg] Low 85 - 95 [facility] Comment on above: Performed By: #### A FPA4 ####[address] [address] PATIENT TEMPERATURE 37.0 degrees C Normal [facility] Comment on above: Result Comment: NOTE : PATIENT RESULTS ARE NOT CORRECTED FOR TEMPERATURE. Performed By: #### A FPA4 ####[address] [address] PCO2 46 mmHg High 38 - 42 [facility] Comment on above: Performed By: #### A FPA4 ####[address] [address] pH (Bld) 7.45 [pH] High 7.38 - 7.42 [facility] Comment on above: Performed By: #### A FPA4 ####[address] [address] Potassium [Moles/Vol] 3.4 mmol/L Low 3.5 - 5.3 [facility] Comment on above: Performed By: #### A FPA4 ####[address] [address] SO2 98 % Normal 94 - 100 [facility] Comment on above: Performed By: #### A FPA4 ####[address] [address] Sodium [Moles/Vol] 141 mmol/L Normal 136 - 145 [facility] Comment on above: Performed By: #### A FPA4 ####[address] [address] CBCon 02-06-2022 Erythrocyte distribution width (RBC) [Ratio] 19.0 % High 11.5 - 14.5 [facility] Comment on above: Performed By: #### C BC #### [address] [address] Hematocrit (Bld) [Volume fraction] 42.4 % Normal 41.0 - 52.0 [facility] Comment on above: Performed By: #### C BC #### [address] [address] Hemoglobin (Bld) [Mass/Vol] 13.5 g/dL Normal 13.5 - 17.5 [facility] Comment on above: Performed By: #### C BC #### [address] [address] MCHC (RBC) [Mass/Vol] 31.8 g/dL Low 32.0 - 36.0 [facility] Comment on above: Performed By: #### C BC #### [address] [address] MCV (RBC) [Entitic vol] 99 fL Normal 80 - 100 [facility] Comment on above: Performed By: #### C BC #### [address] [address] NUCLEATED RBC 0.6 /100 WBC Normal 0.0 - 0.0 [facility] Comment on above: Performed By: #### C BC #### [address] [address] Platelets (Bld) [#/Vol] 137 10*3/uL Low 150 - 450 [facility] Comment on above: Performed By: #### C BC #### [address] [address] RBC 4.29 x10E12/L Low 4.50 - 5.90 [facility] Comment on above: Performed By: #### C BC #### [facility] [address] [place] [address] WBC (Bld) [#/Vol] 6.9 10*3/uL Normal 4.4 - 11.3 [facility] Comment on above: Performed By: #### C BC #### [facility] [address] [place] [address] Clinical Intervention - Ginna etienne 02-06-2022 Clinical Intervention - Pharmacy Pharmacist's Clinical Intervention: Is this intervention medication reconciliation related: yes, History Electronic Signatures: Andrés Bañuelos ([employer]) (Signed 06-Feb-2022 18:53) Authored: Pharmacist's Clinical Intervention Last Updated: 06-Feb-2022 18:53 by Andrés Bañuelos ([employer]) Normal [facility] Consult-Critical Careon 12-0 Consult-Critical Care Service: Service: Critical Care Consult: Consult requested by (Attending Name): Aravind Hernandez Reason: ICU post-operative History of Present Illness: HPI: YEFRI YANEZ is a 57 year old Male with a PMHx of NIMCO, HTN, CHF (EF 35%), GERD, hyperlipidemia, paroxysmal Afib on coumadin, and renal cell carcinoma s/p radiation. Patient was diagnosed with metastatic renal cell carcinoma with mets to the right fifth rib x2 and L4 earlier this year, oncology attempted systemic chemotherapy but patient developed pneumonitis. Chemotherapy held going forward. He received local radiation to metastatic sites and was scheduled to receive nephrectomy to address remaining RCC. Of note, patient was recently admitted to outside hospital with CHF exacerbation and pneumonia postponing original surgery date. He was discharged with Cefdinir x 7 days and Lasix 40 mg p.o. daily for 14 days, nephrectomy was rescheduled for today. Preoperatively patient was tachypneic and endorsed shortness of breath, surgery continued as planned. He presents to the ICU today status post right nephrectomy with Dr. Waterman. OR course complicated by acute postoperative respiratory failure requiring continued mechanical ventilation and admission to ICU. Surgical Hx: none Social Hx: cigar smoker x 40 years, denied ETOH, or illicit drugs Family Hx: noncontributory Code Status: FULL Review Family/Social History and ROS: Incomplete ROS: patient intubated, sedated Allergies: lisinopril: Swelling/Edema penicillin: Unknown aspirin: Unknown Shell Fish: Unknown Mushrooms: Unknown Objective: Physical Exam by System: Constitutional: Well developed, no distress, sedated Eyes: PERRL, EOMI, clear sclera ENMT: mucous membranes moist, no apparent injury, no lesions seen Head/Neck: Neck supple, no apparent injury, thyroid without mass or tenderness, No JVD, trachea midline, no bruits Respiratory/Thorax: Patent airways, CTAB, normal breath sounds with good chest expansion, thorax symmetric, ETT in place Cardiovascular: Regular, rate and rhythm, no murmurs, 2+ equal pulses of the extremities, normal S 1and S 2 Gastrointestinal: Nondistended, soft, non-tender, no rebound tenderness or guarding, no masses palpable, no organomegaly, +BS, no bruits Genitourinary: No Discharge, vesicles or other abnormalities, mcgowan catheter in place Musculoskeletal: ROM intact, no joint swelling, normal strength Extremities: normal extremities, no cyanosis edema, contusions or wounds, no clubbing Neurological: unable to assess Lymphatic: No significant lymphadenopathy Psychological: unable to assess Skin: Warm and dry, no lesions, no rashes, lap sites x4 Medications: Medications: Continuous Medications ------- 1. dexmedeTOMIDine 400 microgram/ NaCL 0.9% 100 mL Premix Infusion with Bolus from Ba.2 mcg/kg/hr IntraVenous Scheduled Medications ------- 1. Acetaminophen: 975 mg Oral Every 6 Hours 2. Atorvastatin: 10 mg Oral At Bedtime 3. Carvedilol - PEDS: 6.25 mg Oral Daily 4. Ciprofloxacin 400 mg IVPB/ Premixed Soln 200 mL: 200 mL IntraVenous Piggyback Every 12 Hours 5. Cyclobenzaprine: 10 mg Oral 3 Times a Day 6. Docusate: 100 mg Oral 2 Times a Day 7. Heparin SubCutaneous: 5000 unit(s) SubCutaneous Every 8 Hours 8. Lidocaine 4% TransDermal: 1 patch TransDermal Every 24 Hours 9. Methocarbamol: 1000 mg Oral 4 Times a Day 10. Pantoprazole Injectable: 40 mg IntraVenous Push Every 24 Hours 11. Polyethylene Glycol: 17 gram(s) Oral Daily 12. Spironolactone: 25 mg Oral Daily PRN Medications ------- 1. Dextrose 50% in Water Injectable: 25 gram(s) IntraVenous Push Every 15 Minutes 2. Glucagon Injectable: 1 mg IntraMuscular Every 15 Minutes 3. HYDROmorphone Injectable: 0.2 mg IntraVenous Push Every 2 Hours 4. Magnesium Sulfate 2 gram/Sterile Water 50 mL Premix Soln: 2 gram(s) IntraVenous Piggyback Every 6 Hours 5. Magnesium Sulfate 4 gram/Sterile Water 100 mL Premix Soln: 4 gram(s) IntraVenous Piggyback Every 6 Hours 6. Ondansetron Injectable: 4 mg IntraVenous Push Every 6 Hours 7. oxyCODONE Immediate Release: 5 mg Oral Every 4 Hours 8. oxyCODONE Immediate Release: 10 mg Oral Every 4 Hours 9. Potassium Chloride 20 mEq/Sterile Water 100 mL Premix IVPB: 20 mEq IntraVenous Piggyback Every 6 Hours 10. Potassium Chloride Extended Release: 20 mEq Oral Every 6 Hours 11. Potassium Chloride Extended Release: 40 mEq Oral Every 6 Hours Assessment: Assessment Acute post operative respiratory failure s/p right nephrectomy Hx of Afib on coumadin Hx of NIMCO on CPAP at HS Hx of CHF Hx of HTN Hx of HLD Plan Neuro: -wean sedation, attempt SAT -on Precedex -CAM ICU -restraints -PT/OT when able CV: -no acute issues, normotensives -continuous hemodynamic monitoring -maintain MAP >70 (more content not included)... Normal [facility] Discharge [id number] Discharge Profile2 Discharge Orders: Anticipated Discharge Date: Anticipated Discharge [id number] Problem List: Admitting Dx: Renal cell carcinoma: Catalog Name: Malignant neoplasm of unspecified kidney, except renal pelvis Hospital Providers: Provider RoleProvider Name Aravind Kinsey DNAR: Code Status at Discharge: Full Code Urology: Urology Discharge Instructions: Radical Nephrectomy. - DESCRIPTION OF PROCEDURE. - Your surgeon removed one of your kidneys. - ACTIVITY. - Do not drive or operate heavy machinery while taking narcotic medication or if you have discomfort that impairs your ability to make sudden movements. - You should refrain from lifting more than 15 lbs and doing strenuous activities for 6 weeks. - RETURN TO WORK. You should return to work 23-Feb-2022. - DIET - You may resume a normal diet and make sure to drink plenty of fluids. - SHOWERING AND BATHING. - You may let soapy water run over your incisions or any surgical drains left in place at discharge but avoid vigorous scrubbing. - It is OK to shower 48 hours after surgery, but avoid tubsoaks or any prolonged submersion in water. - SIGNS and SYMPTOMS - EXPECTED. - Pain at the incision site. - Oozing of blood-tinged fluid from the incision or drain site. - Minimal bruising or purplish discoloration of the skin may appear after the procedure. - WORRISOME - NOTIFY YOUR PHYSICIAN OR RESIDENT FORENSIC TECHNICIAN. - Fever greater than 101 F or 38.3 C, chills, nausea, vomiting, or feeling ill. - Inability to urinate. - Drainage of foul smelling fluid (pus) from the incision or drain sites. - Excruciating pain that is not controlled by prescription or dqqi-wso-hjfmewm medications. - You were sent home on the below medication(s). The generic drug name is given along with why we prescribed it. Please refer to the pharmacy pamphlet for possible interactions with your home medications and potential side effects. Acetaminophen / Oxycodone: A narcotic pain medication. Other Medication Information: Miralax: stool softener. - PATIENT INSTRUCTIONS. Appointments: - PROVIDER/LOCATION. Dr Aravind Hernandez. For any questions, concerns, or need to reschedule appointments, please call our Main Office at [phone]. Provider FINAL REVIEW of Orders: Final Review: Final Review of Medication Reconciliation and Orders Completedby Physician Reviewing ProviderClau Diallo MD (Resident) at 06-Feb-2022 13:52:19 Appointments: Follow-Up Appointment 01: Physician/Dept/ServiceDr. Hernandez Reason for Referralpost op follow up Call to Schedule in2 weeks Phone [phone] CommentsPlease call to schedule appointment Follow-Up Appointment 02: Physician/Dept/[facility] physician Reason for ReferralHospital follow up - blood pressure Call to Schedule in2-3 days CommentsPlease call to schedule Electronic Signatures: Gini Escalante ([employer] [facility]) (Signed 10-Feb-2022 11:42) Authored: Discharge Orders, Appointments Clau Diallo (Resident)) (Signed 06-Feb-2022 13:52) Authored: Discharge Orders, Urology, Provider FINAL REVIEW of Orders, Gold Form - Newspaper Stuffer Summary Last Updated: 10-Feb-2022 11:42 by Gini Escalante ([facility]) Normal [facility] GLUCOSE-POCTon 02-06-2022 Glucose [Mass/Vol] 133 mg/dL High 74 - 99 [facility] Comment on above: Performed By: #### G STEFANI #### [facility] [address] [place] [address] Order Reconciliationon 02-06 Order Reconciliation Page 1 Discharge Reconciliation Document Reconciliation Type: Discharge requested on behalf of Gini Escalante (Advanced Practice Nurse) done by Gini Escalante ([facility]) Discharge - Reconciliation: 06-Feb-2022 13:48 by: Clau Diallo ( (Resident)) Discharge - Reset to Incomplete: 09-Feb-2022 12:41 by: Gini Escalante ([facility]) Discharge - Partial Reconciliation: 09-Feb-2022 12:42 by: Gini Escalante ([facility]) Discharge - Partial Reconciliation: 10-Feb-2022 11:06 by: Luís Siegel ( (Resident)) Discharge - Partial Reconciliation: 10-Feb-2022 11:17 by: Luís Siegel (DO (Resident)) Discharge - Reconciliation: 10-Feb-2022 11:21 by: Gini Escalante ([facility] [facility]) Home Medications EnteredHOME MEDICATIONS AT DISCHARGE DateReconciliation Comment/ Additional Information Cabometyx 20 mg oral tablet 1 tab(s) orally once a day 27-Jan-2022 11:01 Cabometyx 20 mg oral tablet 1 tab(s) orally once a day 27-Jan-2022 11:01 Cabometyx 20 mg oral tablet is continued as Cabometyx 20 mg oral tablet carvedilol 6.25 mg oral tablet 1 tab(s) orally once a day 27-Jan-2022 11:01 Discontinued; Discontinue from ORM carvedilol 6.25 mg oral tablet is not required cyclobenzaprine 10 mg oral tablet 1 tab(s) orally 3 times a day 27-Jan-2022 11:01 cyclobenzaprine 10 mg oral tablet 1 tab(s) orally 3 times a day 27-Jan-2022 11:01 cyclobenzaprine 10 mg oral tablet is continued as cyclobenzaprine 10 mg oral tablet ibuprofen 800 mg oral tablet 1 tab(s) orally 3 times a day, As Needed 27-Jan-2022 11:02 ibuprofen 800 mg oral tablet 1 tab(s) orally 3 times a day, As Needed 27-Jan-2022 11:02 ibuprofen 800 mg oral tablet is continued as ibuprofen 800 mg oral tablet lovastatin 10 mg oral tablet 1 tab(s) orally once a day 27-Jan-2022 11:01 lovastatin 10 mg oral tablet 1 tab(s) orally once a day 27-Jan-2022 11:01 lovastatin 10 mg oral tablet is continued as lovastatin 10 mg oral tablet pantoprazole 40 mg oral delayed release tablet 1 tab(s) orally once a day 27-Jan-2022 11:01 pantoprazole 40 mg oral delayed release tablet 1 tab(s) orally once a day 27-Jan-2022 11:01 pantoprazole 40 mg oral delayed release tablet is continued as pantoprazole 40 mg oral delayed release tablet spironolactone 25 mg oral tablet 1 tab(s) orally once a day 27-Jan-2022 11:01 spironolactone 25 mg oral tablet 1 tab(s) orally once a day 10-Feb-2022 11:16 Discontinued; Discontinue from ORM spironolactone 25 mg oral tablet is replaced with spironolactone 25 mg oral tablet warfarin 5 mg oral tablet 1 tab(s) orally once a day 27-Jan-2022 11:00 warfarin 5 mg oral tablet 1 tab(s) orally once a day, , CAN RESUME ON Wednesday02/11/22 Discontinued; Copy/Discontinue warfarin 5 mg oral tablet is continued and modified Current OrdersDateHOME MEDICATIONS AT DISCHARGE DateReconciliation Comment/ Additional Information Acetaminophen Tablet (TYLENOL)DOSE = 975 mg Oral Every 6 Hours 06-Feb-2022 13:42 Acetaminophen is not required Albuterol 2.5 mg/ 3 mL Nebulizer Soln (PROVENTIL)DOSE = 3 mL Inhalation Morning and Evening via Nebulizer, PRN Shortness of Breath 07-Feb-2022 22:33 Albuterol 2.5 mg/ 3 mL Nebulizer Soln is not required Albuterol 2.5 mg/ 3 mL Nebulizer Soln (PROVENTIL)DOSE = 3 mL Inhalation Once via Nebulizer, PRN Wheezing (PACU)Clinician Notes: Lurdes-operative order ONLY 06-Feb-2022 12:21 Albuterol 2.5 mg/ 3 mL Nebulizer Soln is not required amLODIPine (NORVASC) TabletDOSE = 10 mg Oral Daily 09-Feb-2022 10:02 amLODIPine 10 mg oral tablet 1 tab(s) orally once a day 10-Feb-2022 11:05 Prescription is created for amLODIPine 10 mg oral tablet Atorvastatin Tablet (LIPITOR)DOSE = 10 mg Oral At Bedtime 06-Feb-2022 13:42 Atorvastatin is not required Bisacodyl Rectal Suppository (DULCOLAX)DOSE = 10 mg Rectal Daily, PRN Constipation 08-Feb-2022 10:12 Bisacodyl Rectal is not required Carvedilol Tablet (COREG)DOSE = 12.5 mg Oral 2 Times a DayClinician Notes: Hold for HR < 65 or BP < 100/60 10-Feb-2022 08:32 carvedilol 12.5 mg oral tablet 1 tab(s) orally 2 times a day 10-Feb-2022 11:03 Prescription is created for carvedilol 12.5 mg oral tablet Carvedilol Tablet (COREG)DOSE = 6.25 mg Oral DailyClinician Notes: Hold for SBP <100, HR <60 08-Feb-2022 09:23 Carvedilol is not required Cyclobenzaprine Tablet (FLEXERIL)DOSE = 10 mg Oral 3 Times a Day 06-Feb-2022 13:42 Cyclobenzaprine is not required Dextrose 50% in Water Injectable DOSE = 25 gram(s) IntraVenous Push Every 15 Minutes, PRN Blood Glucose 70 mg/dL or LESS & HAS IV accessClinician Notes: IF patient HAS a secure IV access & is Unconscious, Conscious, NPO or Unable to Eat or Drink. Re 06-Feb-2022 18:04 Dextrose 50% in Water Injectable is not required Dicyclomine Capsule (BENTYL)DOSE = 10 mg Oral 3 Times a Day Before Meals 08-Feb-2022 11:44 Dicyclomine is not required Docusate Capsule (COLACE)DOSE = 100 mg Oral 2 Times a Day 06-Feb-2022 13:42 Docusate is not requir (more content not included)... Normal [facility] Order Reconciliation Page 1 Admission Reconciliation Document Reconciliation Type: Admission from OR requested on behalf of Clau Diallo (Resident) done by Clau Diallo ( (Resident)) Admission from OR - Reconciliation: 06-Feb-2022 13:42 by: Clau Diallo ( (Resident)) Home MedicationsEnteredLast Dose TakenReconciled with current Order Reconciliation Comment/ Additional Information Cabometyx 20 mg oral tablet 1 tab(s) orally once a [id number] Reviewed and Held carvedilol 6.25 mg oral tablet 1 tab(s) orally once a [id number]-Feb-2022 AM Carvedilol - PEDS Tablet (COREG)DOSE = 6.25 mg Oral DailyCa.0543 mg/Kg/DOSE x 115 Kg = 6.25 mg/Dose (Daily Total is 6.25 mg) Weight type: Med Calc Weightcarvedilol 6.25 mg oral tablet continued as the inpatient order Carvedilol - PEDS cyclobenzaprine 10 mg oral tablet 1 tab(s) orally 3 times a [id number]-Feb-2022 AM Cyclobenzaprine Tablet (FLEXERIL)DOSE = 10 mg Oral 3 Times a Daycyclobenzaprine 10 mg oral tablet continued as the inpatient order Cyclobenzaprine ibuprofen 800 mg oral tablet 1 tab(s) orally 3 times a day, As Needed 2021 Reviewed and Held lovastatin 10 mg oral tablet 1 tab(s) orally once a [id number] Atorvastatin Tablet (LIPITOR)DOSE = 10 mg Oral At Bedtimelovastatin 10 mg oral tablet continued as the inpatient order Atorvastatin pantoprazole 40 mg oral delayed release tablet 1 tab(s) orally once a day [id number] Pantoprazole Enteric Coated Tablet (PROTONIX)DOSE = 40 mg Oral Dailypantoprazole 40 mg oral delayed release tablet continued as the inpatient order Pantoprazole spironolactone 25 mg oral tablet 1 tab(s) orally once a [id number]-Feb-2022 AM Spironolactone Tablet (ALDACTONE)DOSE = 25 mg Oral Daily spironolactone 25 mg oral tablet continued as the inpatient order Spironolactone warfarin 5 mg oral tablet 1 tab(s) orally once a [id number] Reviewed and Held Additional Current Orders Acetaminophen Tablet (TYLENOL)DOSE = 975 mg Oral Every 6 Hours Albuterol 2.5 mg/ 3 mL Nebulizer Soln (PROVENTIL)DOSE = 3 mL Inhalation Once via Nebulizer, PRN Wheezing (PACU)Clinician Notes: Lurdes-operative order ONLY Ambulate Post Op Day 1, Routine, 4 Times a Day, Assistance Level: None, Restrictions: None Ambulate T+2, Routine, Daily, 6 times a day, Assistance Level: None, Restrictions: None, Starting on Post op day 2. Basic Metabolic Panel Lab to Collect - 1st AM DrawPlasma/Serum Separator Bladder Scan POCT Once 6 hours after mcgowan removal Call Physician For: BP, diastolic Less Than 60 Greater Than 90 Call Physician For: BP, systolic Less Than 100 Greater Than 160 Call Physician For: heart rate Less Than 60 Greater Than 100 Call Physician For: respirations Less Than 8 Greater Than 20 Call Physician For: temperature Greater Than 38.5 Call Physician For: urine output Less Than 300 mL Over 8 hours ceFAZolin IV Piggy Back in Sodium Chloride 0.9% 50 mL (ANCEF)DOSE = 2 gram(s) Every 8 HoursRecommended Infusion Time: 30 minute(s)Stop After 24 Hours Clear Liquid Diet Routine Clindamycin 900 mg IVPB/ Premixed Soln 50 mL (CLEOCIN)OnceRecommended Infusion Time: 60 minute(s)Clinician Notes: x 1 dose pre-op Complete Blood Count ConditionalOrder Lab to Collect - STATLavender EDTA Complete Blood Count Lab to Collect - 1st AM DrawLavender EDTA Compression Device, Sequential Culture, Blood ConditionalOrder Lab to Collect - STATAEROBIC (Mint or Blue capped) blood culture vial AND Anaerobic (Maroon capped) blood culture vials.-Separate sites for each set of cultures. Clean venipuncture site with alcohol then antiseptic prep. Clean top of culture bottle with Alcohol wipe. Send to microbiology lab immediately at Ambient temperature. Clinician Instructions: 1 of 2 Culture, Blood ConditionalOrder Lab to Collect - STATAEROBIC (Mint or Blue capped) blood culture vial AND Anaerobic (Maroon capped) blood culture vials.-Separate sites for each set of cultures. Clean venipuncture site with alcohol then antiseptic prep. Clean top of culture bottle with Alcohol wipe. Send to microbiology lab immediately at Ambient temperature. Clinician Instructions: 2 of 2 Docusate Capsule (COLACE)DOSE = 100 mg Oral 2 Times a Day DVT Risk Assessment Complete DVT Risk Score: 8 Highest Risk DVT Risk Factors:Age 41-60 years (1); BMI 35 - 39.9 (3), Malignancy present or previous (2), Current Major Surgery > 45 min (2) Education Provide patient and family with education related to CAUTI prevention and catheter care Education Pt oriented to surroundingsPt & family updated on POC Wound care Electrocardiogram 12 Lead RoutineClinical Indications: ACS SymptomsNotify MD if performed fentaNYL Injectable (SUBLIMAZE)DOSE = 50 microgram(s) IntraVenous Push Every 5 Minutes, PRN Pain - Severe (7-10) (PACU)Clinician Notes: Lurdes-operative order ONLYMax total of 200 micrograms r (more content not included)... Normal [facility] PT/INRon 02-06-2022 PT Coag (PPP) [Time] 14.3 s High 9.8 - 13.4 [facility] Comment on above: Performed By: #### P TINR ####[address] [address] PT, INR 1.2 High 0.9 - 1.1 [facility] Comment on above: Performed By: #### P TINR ####[address] [address] Patient Profile - Preop v3on 02-06-2022 Patient Profile - Preop v3 Patient Profile - Preop: Initial Info: Patient DemographicsName: YEFRI YANEZ Date: 1965 Address: [facility] NATHANIEL JIMENEZ, [facility] Primary Phone [phone] Instructions Givenanticoagulant meds - patient advised to consult ordering provider, appropriate clothing, bring glasses/contacts case, bring list of medications, center location, diabetes meds - patient advised to consult ordering provider, insurance information, remove jewerly/piercings How to be AddressedTHOMAS Spoken Language PreferredEnglish Source of Informationpatient Stated Reason for AdmissionREMOVAL OF RIGHT KIDNEY Primary Contact Name and Numberstere [phone] Limitations on Visitors/Phone Callsnone Medications Brought to Hospitalno General Health: Weight in kg115 kilogram(s) Weight in jfr728.5 pound(s) Weight Methodstated Scale Typechair Height in feet5 feet Height in ogmwem56 inch(es) Height in cm177.8 centimeter(s) Height Methodstated BMI (kg/m2)36.377 square meter Patient or Family Member Reaction to Anesthesianever had anesthesia Blood Avoidance/Restrictionsnon e Previous Transfusion Reactionnever had blood Health Mgmt: Symptoms/Conditions [facility] [facility] [place] Barriers to Managing Healthnone Relationship/Environ: Lives Withspouse Living Arrangementshouse Resource/Environmental Concernsnone Anticipated Transition [facility] Services Anticipated at [facility] Tobacco Use: Tobacco Useyes Last Tobacco [id number] Tobacco CommentCIGARS, VAPING Pre-op Checklist: Arrival [id number] Arrival Time10:02 Procedure TypeRT LAPAROSCOPIC NEPHRECTOMY NPOyes Last Food [id number] 19:30 Last Clear Fluid [id number]-Prv-0726 06:30 ID Band On Patientpatient ID (name), allergy Type and Screen Resultedyes Chlorhexadine Bath Givencompleted morning of surgery Soap and Water Bath the Night Before Surgeryyes Hair Washed with Shampooyes Bowel Prepno Surgical Site Infection Preventionyes Pain Scales and Managementyes Additional Information: Information Review: Allergies, Home Meds and Significant Events have been Reviewed and Verified with Patient/Familyyes Allergy, Intolerance, Adverse Event: Allergies: lisinopril: Drug, Swelling/Edema, Active penicillin: Drug, Unknown, Active aspirin: Drug, Unknown, Active Shell Fish: Food, Unknown, Active Mushrooms: Food, Unknown, Active Electronic Signatures: Ivette Elizondo) (Signed 06-Feb-2022 10:06) Authored: Initial Info, General Health, Health Mgmt, Relationship/Environ, Tobacco Use, Pre-op Checklist, Additional Information Last Updated: 06-Feb-2022 10:06 by Ivette Elizondo) Normal [facility] RENAL FUNCTION PANELon 02-06 Albumin [Mass/Vol] 3.8 g/dL Normal 3.4 - 5.0 [facility] Comment on above: Performed By: #### C BC #### [address] [address] Anion gap [Moles/Vol] 10 mmol/L Normal 10 - 20 [facility] Comment on above: Performed By: #### C BC #### [address] [address] Calcium [Mass/Vol] 8.6 mg/dL Normal 8.6 - 10.3 [facility] Comment on above: Performed By: #### C BC #### [address] [address] Chloride [Moles/Vol] 106 mmol/L Normal 98 - 107 [facility] Comment on above: Performed By: #### C BC #### [address] [address] Creatinine [Mass/Vol] 1.38 mg/dL High 0.50 - 1.30 [facility] Comment on above: Performed By: #### C BC #### [address] [address] GFR/1.73 sq M.predicted among non-blacks MDRD (S/P/Bld) [Vol rate/Area] 59 mL/min/{1.73_m2} Abnormal >90 [facility] Comment on above: Result Comment: CALC ULATIONS OF ESTIMATED GFR ARE PERFORMED USING THE 2020 CKD-EPI STUDY REFIT EQUATION WITHOUT THE RACE VARIABLE FOR THE IDMS-TRACEABLE CREATININE METHODS. https://jasn.asnjournals.org/content//ASN.2020 372418 Performed By: #### C BC #### [address] [address] Glucose [Mass/Vol] 138 mg/dL High 74 - 99 [facility] Comment on above: Performed By: #### C BC #### [address] [address] HCO3 (Bld) [Moles/Vol] 31 mmol/L Normal 21 - 32 [facility] Comment on above: Performed By: #### C BC #### [address] [address] Phosphate [Mass/Vol] 4.9 mg/dL Normal 2.5 - 4.9 [facility] Comment on above: Result Comment: The performance characteristics of phosphorus testing in heparinized plasma have been validated by the individual laboratory site where testing is performed. Testing on heparinized plasma is not approved by the FDA; however, such approval is not necessary. Performed By: #### C BC #### [address] [address] Potassium [Moles/Vol] 4.0 mmol/L Normal 3.5 - 5.3 [facility] Comment on above: Performed By: #### C BC #### [address] [address] Sodium [Moles/Vol] 143 mmol/L Normal 136 - 145 [facility] Comment on above: Performed By: #### C BC #### [address] [address] Urea nitrogen [Mass/Vol] 23 mg/dL Normal 6 - 23 [facility] Comment on above: Performed By: #### C BC #### [address] [address] TYPE + SCREENon 02-06-2022 ABO TYPE O Normal [facility] Comment on above: Performed By: #### T +S #### [address] [address] RH TYPE Positive Normal [facility] Comment on above: Performed By: #### T +S #### [address] [address] [facility] Surgical Pathology Depar zenobiaon 02-06-2022 [facility] Surgical Pathology Department Name YEFRI YANEZ Pathologist: CYNTHIA LOPEZ MD Date of Procedure: 02/06/2022 Date Received: 02/06/2022 Date Reported 02/19/2022 Submitting Physician: ARAVIND HERNANDEZ MD Location: [facility] Other External # FINAL DIAGNOSIS A. 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 CASE SUMMARY REPORT SPECIMEN Procedure: Radical nephrectomy Specimen Laterality: Right TUMOR Tumor Focality: Unifocal Tumor Size: Greatest Dimension (Centimeters): 5.3 cm Additional Dimension (Centimeters): 3.0 cm Additional Dimension (Centimeters): 2.7 cm Histologic Type: Clear cell renal cell carcinoma Histologic Grade (WHO / ISUP): G3 (nucleoli conspicuous and eosinophilic at 100x magnification) Tumor Extent: Extends into perinephric tissue (beyond renal capsule) Extends into renal sinus Extends into major vein (renal vein or its segmental branches, inferior vena cava) Sarcomatoid Features: Not identified Rhabdoid Features: Not identified Tumor Necrosis: Not identified Lymphovascular Invasion: Not identified MARGINS Margin Status: All margins negative for invasive carcinoma REGIONAL LYMPH NODES Regional Lymph Node Status: Not applicable (no regional lymph nodes submitted or found) PATHOLOGIC STAGE CLASSIFICATION (pTNM, AJCC 8th Edition) Primary Tumor (pT): pT3a Regional Lymph Nodes (pN): pN not assigned (no nodes submitted or found) ADDITIONAL FINDINGS Additional Findings in Nonneoplastic Kidney: Glomerular disease: focal glomerulosclerosis Vascular disease: Mild to moderate arteriosclerosis Case Work Aide Blocks: Normal Block: A8 Tumor Block: A3 Electronically Signed Out By CYNTHIA LOPEZ MD/[facility] By the signature on this report, the individual or group listed as making the Final Interpretation/Diagnosis certifies that they have reviewed this case. Diagnostic interpretation performed at [facility] [address] [address] [facility] [place] [address] Clinical History: renal cell carcinoma Specimens Submitted As: A: RIGHT KIDNEY Gross Description: Received in formalin, labeled with the patient?s name and hospital number and R, kidney, is a kidney with attached perirenal fat, measuring 12.8 x 7.0 x 5.0 cm. The specimen is inked and bivalved. The cut surface reveals a mass in the upper portion of the kidney measuring 5.3 x 3.0 x 2.7 cm. The mass is sharply circumscribed and is composed of yellow tissue. There is areas of hemorrhage grossly identified within the mass. The mass does appear to invade the lurdes-renal fat and does not invade through the capsule. There is also extension of tumor into the lurdes-hilar fat. The remainder of the cut surface is short-brown with a well-defined cortical medullary junction. The pelvis and calyces are covered by smooth, glistening mucosa. Extending from the renal pelvis is a ureter, 3.0 cm in length and 0.1 cm in diameter. The adrenal gland is not identified. The fibrofatty tissue is thinly sectioned and no lymph nodes are found. Photographs have been taken. Case Work Aide sections are submitted in 8 cassettes. WXK/DJO Summary of Cassettes: Specimen Label Site A 1 ureter margin 2 vascular margins 3-4 mass in relation to lurdes-renal fat (A3 with tumor deposit in lurdes-renal fat) 5-6 mass in relation to lurdes-hilar fat 7 tumor with adjacent kidney parenchyma 8 normal kidney parenchyma djo/02/10/2022 [facility] Department of Pathology [address] [place] [address] Normal [facility] Comment on above: Performed By: #### [facility] #### [facility] Surgical Pathology Department [address] [place] [address] [facility] CNPN Telephone (CARMOB) ----- YEFRI YANEZ ([id number]) [address] [facility] Date Time Provider Department 02/05/22 SAYRA TELLO During your visit today, we recorded the following information about you: Abbey Nash 02/05/2022 12:41 PM Signed Patient's Miya left a voicemail stating that she has questions about the patient's upcoming appointment with Dr. Tello. Please call her at [phone]. Florian Mello RN 02/09/2022 2:26 PM Signed Left msg. JOHN Milan RN 02/12/2022 10:17 AM Signed Left msg JOHN Milan RN 02/17/2022 9:03 AM Signed She never called me back but he came in for his appt yesterday. Florian Mello RN Allergies As of Date: 02/05/2022 Noted Allergy Reaction LISINOPRIL 09/01/2012 18 - Angioedema SHELLFISH CONTAINING PRODUCTS 06/04/2019 10 - Anaphylaxis 4 - Hives ASPIRIN 07/21/2004 5 - Intolerance MUSHROOM 08/05/2021 4 - Hives PENICILLINS 11/01/2003 5 - Intolerance Date Reviewed: 12/09/2021 Reviewed by: Tamiko Mason RN - Fully Assessed Reason for Visit: Patient Question [1477] Prescriptions as of 02/17/2022 - torsemide (DEMADEX) 20 mg tablet Take 2 tablets by mouth once daily. TAKE 2 TABLETS BY MOUTH TO EQUAL 40 MG ONCE PER DAY - amLODIPine (NORVASC) 10 mg tablet - albuterol (PROVENTIL) 2.5 mg /3 mL (0.083 %) nebulizer solution - carvedilol (COREG) 12.5 mg tablet - warfarin (COUMADIN) 1 mg tablet - warfarin (COUMADIN) 2 mg tablet - warfarin (COUMADIN) 3 mg tablet - predniSONE (DELTASONE) 20 mg tablet - polyethylene glycol 3350 (MIRALAX, GLYCOLAX) 17 gram/dose powder - oxyCODONE IR (ROXICODONE) 5 mg immediate release tablet - losartan (COZAAR) 50 mg tablet - cefdinir (OMNICEF) 300 mg capsule - clindamycin (CLEOCIN) 150 mg capsule - CABOMETYX 20 mg tablet - lovastatin (MEVACOR) 20 mg tablet - TRELEGY ELLIPTA 100-62.5-25 mcg inhalation powder - spironolactone (ALDACTONE) 25 mg tablet Take 0.5 tablets by mouth once daily. - warfarin (COUMADIN) 5 mg tablet Take 1 tablet by mouth once daily. - rosuvastatin (CRESTOR) 40 mg tablet Take 1 tablet by mouth once daily. - albuterol HFA (PROVENTIL HFA, VENTOLIN HFA) 90 mcg/actuation inhaler Inhale 2 Puffs as instructed every 4 hours as needed for wheezing/shortness of breath. - ferrous sulfate 325 mg (65 mg iron) tablet TAKE 1 TABLET BY MOUTH TWICE A DAY - ondansetron (ZOFRAN) 8 mg tablet Take 1 tablet by mouth every 8 hours as needed for nausea/vomiting. - cyclobenzaprine (FLEXERIL) 10 mg tablet Take by mouth three times daily as needed for muscle spasm. - acetaminophen (TYLENOL EXTRA STRENGTH) 500 mg tablet Take 2 tablets by mouth every 6 hours as needed for pain. - pantoprazole DR (PROTONIX) 40 mg tablet Take 1 tablet by mouth once daily. Facility-Administered Medications as of 02/17/2022 - perflutren lipid microspheres 1.3 mL in NaCl (PF) 0.9% 10 mL injection (DEFINITY) - sodium chloride 0.9 % (flush) 10 mL (BD POSIFLUSH) Meds Comments as of 09/29/2021: 09/29/21 The medications are managed by this patient by: [facility] Safia Carr, [facility] Problem List As Of Date 02/05/2022 Noted Resolved BENIGN HYPERTENSION [I10] 06/30/2004 03/12/2008 HLD (hyperlipidemia) [E78.5] 06/30/2004 ROUTINE MEDICAL EXAM [Z00.00] 06/30/2004 11/26/2014 Disturbance in sleep behavior [G47.9] 06/30/2004 CHEST PAIN NOS [R07.9] 06/30/2004 11/26/2014 ALLERGIC RHINITIS NOS [J30.9] 06/30/2004 JOINT PAIN-SHLDER [M25.519] 06/04/2006 Essential hypertension [I10] 03/12/2008 ESOPHAGEAL REFLUX [K21.9] 03/12/2008 TOBACCO USE DISORDER [F17.200] 03/12/2008 NIMCO (obstructive sleep apnea) [G47.33] 11/15/2019 History of seizure [Z87.898] 11/15/2019 Class 2 obesity due to excess calories without *11/15/2019 Renal cell carcinoma of right kidney (HCC) [C64*07/23/2021 Metastatic renal cell carcinoma (HCC) [C64.9] 07/24/2021 New onset a-fib (HCC) [I48.91] 09/02/2021 Nonrheumatic mitral valve regurgitation [I34.0] 09/04/2021 Acute decompensated heart failure (HCC) [I50.9] 09/22/2021 Prediabetes [R73.03] 10/27/2021 CAD (coronary artery disease) [I25.10] 10/27/2021 Encounter Status:Closed by FLORIAN MELLO on 02/17/22 [facility] CORONAVIRUS 2019, SCREEN ASY MPTOMATICon 02-04-2022 SARS-CoV-2 (COVID-19) RNA SANDOVAL+probe Ql (Unsp spec) Not detected Normal Not Detected [facility] Comment on above: Result Comment: . This assay is designed to detect the ORF1a/b and E genes of SARS-CoV-2 via nucleic acid amplification. A Not Detected result does not preclude 2019-nCoV infection since the adequacy of sample collection and/or low viral burden may result in presence of viral nucleic acids below the clinical sensitivity of this test method. Fact sheet for providers: https://www.fda.gov/media/596439/download Fact sheet for patients: https://www.fda.gov/media/619407/download This test has received FDA Emergency Use Authorization (EUA) and has been verified for use by [facility] ([facility]). This test is only authorized for the duration of time that circumstances exist to justify the authorization of the emergency use of in vitro diagnostic tests for the detection of SARS-CoV-2 virus and/or diagnosis of COVID-19 infection under section 564(b)(1) of the Act, 21 U.S.C. 360bbb-3(b)(1), unless the authorization is terminated or revoked sooner. [facility] is certified under CLIA-88 as qualified to perform high complexity testing. Testing is performed in the [facility] laboratories located at [address] [place] [address]. Performed By: #### C OVSC #### [facility] [id number] [place] [address] Lab Specimen Source Nasal, Nasopharyngeal Normal [facility] Comment on above: Performed By: #### C OVSC #### [place] [address] Coronavirus 2019 RNA by PCR, Screening Asymptomticon 02-04-2022 Coronavirus 2019 RNA by PCR, Screening Asymptomtic Not detected Normal See Below BY-Hozomhb-Q yamila SJW 400 DO Work Phone: Comment on above: SOURCE: Nasal, Nasop haryngealReference Range: Not Detected.This assay is designed to detect the ORF1a/b and E genes of SARS-CoV-2 via nucleic acid amplification. A Not Detected result does not preclude 2019-nCoV infection since the adequacy of sample collection and/or low viral burden may result in presence of viral nucleic acids below the clinical sensitivity of this test method. Fact sheet for providers: https://www.fda.gov/media/892451/download Fact sheet for patients: https://www.fda.gov/media/744455/download This test has received FDA Emergency Use Authorization (EUA) and has been verified for use by [facility] ([facility]). This test is only authorized for the duration of time that circumstances exist to justify the authorization of the emergency use of in vitro diagnostic tests for the detection of SARS-CoV-2 virus and/or diagnosis of COVID-19 infection under section 564(b)(1) of the Act, 21 U.S.C. 360bbb-3(b)(1), unless the authorization is terminated or revoked sooner.[facility] is certified under CLIA-88 as qualified to perform high complexity testing. Testing is performed in the [facility] laboratories located at [id number] [place] [address]. Covid 19 Resultson 2 SARS-CoV-2 (COVID-19) RNA SANDOVAL+probe Ql (Unsp spec) NEGATIVE COVID-19 Test Coronaviruses are common world-wide and are the cause of many common colds. SARS-COV2 is a new coronavirus that began circulating worldwide in 2019 so we are calling it COVID-19. It has been estimated that four out of five patients with COVID-19 will recover at home without the need for medical attention. Symptoms of COVID-19 may include cough, fever, shortness of breath, loss of taste or smell and other flu-like symptoms including chills, sore muscles, sore throat, and headache. Severe illness is more common in older people and people with other health problems such as high blood pressure, obesity, and immune system problems. If the test is positive, you have COVID-19. You will be contacted by the ordering physicians office and instructed to remain on home isolation, in accordance with CDC guidelines. You may also be contacted by the [facility] to see if any of your close contacts may have been exposed to the virus and need to quarantine. If the test is negative, you likely do not have COVID-19 at this time, but you still may have a different illness that can spread to other people (like Influenza, or the Flu) and could still be at risk for getting COVID-19. We recommend that you stay away from other people to limit the spread of illness until your symptoms are improving and you are fever-free for 24 hours without the use of fever lowering medications such as acetaminophen or ibuprofen. No test is 100% accurate so if you are still concerned you may have COVID-19, talk to your doctor about the need to continue to stay away from others. Medicines Unless your provider told you not to use the following: Acetaminophen (Tylenol and others) is generally safe. Anti-inflammatory medications, such as Ibuprofen (Advil or Motrin) or Naproxen (Aleve) can also be used. Jkub-lfp-hloazuj cough and cold medicines can be used according to the instructions on the package. Some mswu-hza-kklkbfq medicines also contain acetaminophen. Make sure you are not taking more than your recommended dose. For those not hospitalized, there is no specific treatment available for this illness. Antibiotics do not treat Coronaviruses. Follow-Up Follow up with your doctor by scheduling a virtual visit or consider follow-up at one of our urgent care fever clinics. If you are having difficulty breathing, or are very weak and having difficulty standing, this is a medical emergency. Call 911 or have someone take you to the nearest emergency room immediately. If possible, wear a facemask. Additional guidance from the CDC for patients who tested POSITIVE for COVID-19 How to isolate: Isolate yourself in a specific room at home and limit your contact with others. Use a separate bathroom from other members of the household, when possible. Leave home only to get essential medical care. Do not go to work, school or public areas. Avoid using public transportation, ride-sharing, or taxis. Restrict contact with pets and other animals. If you must care for your pet or be around animals while you are sick, wash your hands before and after your interaction and wear a facemask. Make sure that shared spaces in the home have good airflow, such as by an air conditioner or an opened window, weather permitting. Personal Hygiene Procedures: Wear a face mask when in the same room as other people or pets. If a face mask interferes with your breathing, others should wear a mask when sharing space with you. Frequent hand-washing: wash your hands with soap and water for at least 20 seconds. If soap and water are not available, use alcohol-based hand supervisor data processing. Avoid touching your eyes, nose, and mouth with unwashed hands. Household Hygiene Procedures: Avoid sharing personal household items such as dishes, glassware, cups, eating utensils, towels or bedding with other people or pets in your home. After use, these items should be washed with soap and hot water. Disinfect all high-touch surfaces every day with antibacterial cleaning solutions such as Lysol wipes, bleach, cleansers, etc. High-touch surfaces include tabletops, doorknobs, bathroom fixtures, toilets, phones, keyboards, tablets and bedside tables. Immediately clean any surfaces that may have blood, poop or body fluids on them, using antibacterial cleaning solutions such as Lysol wipes, bleach, cleansers, etc. If clothing or bedding come into contact with blood, poop or body fluids, they should be washed immediately. Follow the directions on the laundry detergent and clothing labels but hot water is recommended when possible. Stopping home isolation precautions: If possible, consult your doctor before stopping home isolation precautions. According to the CDC, you can discontinue home isolation precautions when you have met both of these criteria: Your fever and respiratory symptoms have been gone for 24 felisa (more content not included)... Normal [facility] Chart Updateon 02-03-2022 Chart Update Chart Update 57-year-old male referred to me for cytoreductive nephrectomy Referred by Dr. Adriana Hodge Complex oncologic history, please see scanned in records in the referral/consult letter section. PMH: NIMCO on CPAP, hypertension, GERD, hyperlipidemia, prediabetes (A1c low, 6%), A. fib on AC PSH: No prior abdominal surgery BMI 35.4 Long history of cigar smoking, 40+ years. 06/2021 -presented to Dr. Hodge's clinic for evaluation of a 7 cm right renal mass with metastatic lesions x2-right fifth rib metastasis and L4 metastasis. Metastases were impressive in size, right rib lesion approximately 10 cm, L4 lesion 6.8 cm. PSA 0.66, creatinine 1.12 GFR 77, LFTs WNL, hemoglobin 15.6 Chest wall biopsy: Clear-cell RCC Patient was referred to medical oncology, received Cabo/Nivo. Developed pneumonitis and therefore Nivo was held. Due to inability to tolerate I/O, multidisciplinary plan developed between urology, medical oncology, radiation oncology at [facility] was local therapy to metastatic sites and cytoreductive nephrectomy. 12/08/2021-echo with EF 35%, LV and RV enlargement and hypokinesis 12/26/2021-patient completed radiation to chest wall and L4 lesion Patient has remained on cabo Patient was scheduled for nephrectomy with Dr. Adriana Hodge, due to insurance issues patient could not be operated on at [facility], referred to pr for nephrectomy. 01/19/2022-patient scheduled for laparoscopic nephrectomy 02/0301/20/2022-patient presented to [place] ER with shortness of breath 01/27/2022-patient presented to [facility] with persistence of subjective dyspnea, expiratory wheezing 01/29/2022-patient represented to [place] ED with chest tightness and shortness of breath. Diagnosed with CHF and pneumonia. He was prescribed cefdinir 300 mg p.o. twice daily x7 days, Lasix 40 mg daily p.o. for 14 days. 02/02/2022-canceled nephrectomy for 02/03. Called patient to discuss, subjectively feels back to baseline following diuresis and antibiotics. #Metastatic clear cell RCC-unconventional management due to patient's inability to tolerate immunotherapy due to pneumonitis. Has now had local therapy to both the rib and spinal lesion with radiation therapy. Plan previously developed at [facility] was 4 local treatment to masses followed by nephrectomy, ultimately will be on long-term cabozantinib following nephrectomy. -High risk for surgery given CHF, need to be on anticoagulation postoperatively, prior pneumonitis -Reschedule nephrectomy for 02/06 -I have a call out to his primary care physician, Dr. Tayler Blake, to discuss medical assessment/clearance -I will discuss case with anesthesiology and assess patient preoperatively for fitness for nephrectomy Signatures Electronically signed by : Aravind Hernandez MD; Feb 03 2022 8:52AM EST (Author) Normal [facility] Absolute lymphocyte countOrd ered By: Dr. Bass on 01-29-2022 Lymphocytes Auto (Unsp spec) [#/Vol] 0.78 10*3/uL 0.83-4.51 [facility] Basophil percentageOrdered B y: Dr. Bass on 01-29-2022 Basophils/100 WBC (Bld) 0.3 % 0-1 [facility] Chloride [Moles/Vol] 102 mmol/L 98-107 [facility] Eosinophils/100 WBC (Bld) 0.1 % 0-5 [facility] Glucose [Mass/Vol] 148 mg/dL 74-106 [facility] Comment on above: Fasting Glucose resu lt greater than or equal to 126 mg/dL suggests DIABETES MELLITUS per A.D.A. criteria. Neutrophils (Bld) [#/Vol] 8.6 10*3/uL 2.0-7.7 [facility] Neutrophils/100 WBC (Bld) 85.8 % 47-70 [facility] Potassium [Moles/Vol] 3.5 mmol/L 3.5-5.1 [facility] Comment on above: Slight Hemolysis, Re sult may be falsely increased. Sodium [Moles/Vol] 142 mmol/L 136-145 [facility] WBC (Bld) [#/Vol] 10.0 10*3/uL 4.4-11.0 [facility] Blood erythrocytes count (nu mber/volume)Ordered By: Dr. Bass on 01-29-2022 RBC (Bld) [#/Vol] 4.81 10*6/uL 4.6-6.2 [facility] Blood hemoglobin measurement (mass/volume)Ordered By: Dr. Bass on 01-29-2022 Hemoglobin (Bld) [Mass/Vol] 15.0 g/dL 13.0-16.5 [facility] Blood lymphocytes/100 leukoc ytesOrdered By: Dr. Bass on 01-29-2022 Lymphocytes/100 WBC (Bld) 7.8 % 19-41 [facility] Blood monocytes/100 leukocyt esOrdered By: Dr. Bass on 01-29-2022 Monocytes/100 WBC (Bld) 4.3 % 0-10 [facility] Blood platelet mean volumeOr dered By: Dr. Bass on 01-29-2022 Platelet mean volume (Bld) [Entitic vol] 10.9 fL 6.2-12.0 [facility] Determination of erythrocyte mean corpuscular volume (MCV)Ordered By: Dr. Bass on 01-29-2022 MCV (RBC) [Entitic vol] 94.2 fL 80-94 [facility] Hematocrit Auto (Bld) [Volum e fraction]Ordered By: Dr. Bass on 01-29-2022 Hematocrit (Bld) [Volume fraction] 45.3 % 40-54 [facility] INR in Blood by Coagulation assayOrdered By: Dr. Bass on 01-29-2022 INR Coag (Bld) [Relative time] 1.2 {INR} [facility] Influenza virus A and B and SARS-CoV-2 (COVID-19) Ag panel - Upper respiratory specimOrdered By: Dr. Bass on 01-29-2022 SARS-CoV-2 (COVID-19) RNA SANDOVAL+probe Ql (Resp) [facility] Laboratory - Chemistry and C hemistry - challengeOrdered By: Dr. Bass on 01-29-2022 CO2 [Moles/Vol] 36.0 mmol/L 21.0-32.0 [facility] Natriuretic peptide B (Bld) [Mass/Vol] 378.8 pg/mL 0-100 [facility] Urea nitrogen/Creatinine [Mass ratio] 17.4 mg/mg 10-20 [facility] Laboratory - CoagulationOrde red By: Dr. Bass on 01-29-2022 PT Coag (PPP) [Time] 15.3 s 11.7-14.9 [facility] Laboratory - Hematology and Cell countsOrdered By: Dr. Bass on 01-29-2022 Erythrocyte distribution width (RBC) [Entitic vol] 55.1 fL 35.1-43.9 [facility] Erythrocyte distribution width (RBC) [Ratio] 16.4 % 11.6-14.6 [facility] Immature granulocytes/100 WBC (Bld) 1.700 % 0.0-0.9 [facility] Comment on above: IG% - Immature Granu locytes (promyelocytes, myelocytes and metamyelocytes) > 1% indicates that a LEFT SHIFT is Present. MCH (RBC) [Entitic mass] 31.2 pg 27.0-32.0 [facility] Nucleated RBC/100 WBC (Bld) [Ratio] 1.2 % 0-5 [facility] MCHC Auto (RBC) [Mass/Vol]Or dered By: Dr. Bass on 01-29-2022 MCHC (RBC) [Mass/Vol] 33.1 g/dL 32-36 [facility] No Panel InformationOrdered By: Dr. Bass on 01-29-2022 Estimated Creatinine Clearance Calc 76.27 ml/min [facility] Estimated GFR (MDRD) Amer 89 mL/min >60 [facility] Comment on above: GFR Calc Estimated GFR (MDRD) Non-Af Amer 74 mL/min >60 [facility] Comment on above: Non- GFR Calc Troponin I High Sensitivity 69 pg/mL 3.0-78.0 [facility] Comment on above: Please Note: New [place] t Units and Gender Specific Reference Ranges. For more information see Policy Stat Procedure [place] High Sensitivity Troponin (TNIH) and attachments. Platelets bldOrdered By: Dr. Bass on 01-29-2022 Platelets (Bld) [#/Vol] 166 10*3/uL 150-450 [facility] Serum or plasma calcium cory urement (mass/volume)Ordered By: Dr. Bass on 01-29-2022 Calcium [Mass/Vol] 9.0 mg/dL 8.5-10.1 [facility] Serum or plasma creatinine m easurement (mass/volume)Ordered By: Dr. Bass on 01-29-2022 Creatinine [Mass/Vol] 1.09 mg/dL 0.70-1.30 [facility] Comment on above: The validity of the calculated GFR & GFRAA in patients over 70 years has not been determined. Clinical correlation is essential. Serum or plasma urea nitroge n measurement (mass/volume)Ordered By: Dr. Bass on 01-29-2022 Urea nitrogen [Mass/Vol] 19 mg/dL 7-18 [facility] Thin prep Papanicolaou smear with manual screeningOrdered By: Dr. Bass on 01-29-2022 Thin prep Papanicolaou smear with manual screening 4 5-15 [facility] Cult, Urineon 01-27-2022 Bacteria identified Cx Nom (U) LH-Autylpd-V estlaFreeppie SJW 400 DO Work Phone: Laboratory - Blood bankon ABO group Nom (Bld) O MP-Ur ology-W [place]Free[place] S[place] [address] DO Work Phone: Blood group antibody screen Ql Negative GE-Epoedud-W estlaFreeppie SJW 400 DO Work Phone: Rh immune globulin screen (Bld) [Interp] Positive MP-Urology -W [place] 400 DO Work Phone: TYPE + SCREENon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 above: Please Note: [place] t Units and Gender Specific Reference Ranges. For more information see Policy Stat Procedure [place] High Sensitivity Troponin (TNIH) and attachments. Platelets bldon 12-07-2021 Platelets (Bld) [#/Vol] 231 10*3/uL 150-450 [facility] Work Phone: [phone] Serum or plasma calcium cory urement (mass/volume)on 12-07-2021 Calcium [Mass/Vol] 9.6 mg/dL 8.5-10.1 [facility] Work Phone: [phone] Serum or plasma creatinine m easurement (mass/volume)on 12-07-2021 Creatinine [Mass/Vol] 1.27 mg/dL 0.70-1.30 [facility] Work Phone: Comment on above: The validity of the calculated GFR & GFRAA in patients over 70 years has not been determined. Clinical correlation is essential. Serum or plasma urea nitroge n measurement (mass/volume)on 12-07-2021 Urea nitrogen [Mass/Vol] 20 mg/dL 7-18 [facility] Work Phone: Thin prep Papanicolaou smear with manual screeningon 12-07-2021 Thin prep Papanicolaou smear with manual screening 9 5-15 [facility] Work Phone: CNPNon 12-03-2021 CNPN Normal [facility] CNPNon 11-29-2021 CNPN Normal [facility] 11-24-2021 [facility] Telephone ([facility]) ----- YEFRI YANEZ ([id number]) [address] [facility] Date Time Provider Department 11/24/21 AMERICA SCHWARTZ [facility] During your visit today, we recorded the following information about you: Octavio Schwartz RN 11/25/2021 9:01 AM Signed Patient is requesting patient medication for pain in bilateral legs, states that it is a 6/10 constant cramping. Informed patient that nurse will discuss with physician and return call. Patient verbalized understanding. America Schwartz RN, BSN, OCN Allergies As of Date: 11/24/2021 Noted Allergy Reaction LISINOPRIL 09/01/2012 18 - Angioedema SHELLFISH CONTAINING PRODUCTS 06/04/2019 10 - Anaphylaxis 4 - Hives ASPIRIN 07/21/2004 5 - Intolerance MUSHROOM 08/05/2021 4 - Hives PENICILLINS 11/01/2003 5 - Intolerance Date Reviewed: 11/20/2021 Reviewed by: Marcelino Mayberry RN - Fully Assessed Reason for Visit: Patient Update [1234] Cmt: Called patient to inform him that the speciality pharmacy is going to call to set-up delivery time for his chemo medication. Patient verbalized understanding. America Schwartz RN, BSN, OCN Prescriptions as of 11/25/2021 - torsemide (DEMADEX) 20 mg tablet TAKE 2 TABLETS BY MOUTH TO EQUAL 40 MG ONCE PER DAY - spironolactone (ALDACTONE) 25 mg tablet Take 0.5 tablets by mouth once daily. - warfarin (COUMADIN) 5 mg tablet Take 1 tablet by mouth once daily. - carvedilol (COREG) 6.25 mg tablet Take 3 tablets by mouth twice daily. - rosuvastatin (CRESTOR) 40 mg tablet Take 1 tablet by mouth once daily. - albuterol HFA (PROVENTIL HFA, VENTOLIN HFA) 90 mcg/actuation inhaler Inhale 2 Puffs as instructed every 4 hours as needed for wheezing/shortness of breath. - ferrous sulfate 325 mg (65 mg iron) tablet TAKE 1 TABLET BY MOUTH TWICE A DAY - ondansetron (ZOFRAN) 8 mg tablet Take 1 tablet by mouth every 8 hours as needed for nausea/vomiting. - cyclobenzaprine (FLEXERIL) 10 mg tablet Take by mouth three times daily as needed for muscle spasm. - acetaminophen (TYLENOL EXTRA STRENGTH) 500 mg tablet Take 2 tablets by mouth every 6 hours as needed for pain. - pantoprazole DR (PROTONIX) 40 mg tablet Take 1 tablet by mouth once daily. Meds Comments as of 09/29/2021: 09/29/21 The medications are managed by this patient by: [facility] Problem List As Of Date 11/24/2021 Noted Resolved BENIGN HYPERTENSION [I10] 06/30/2004 03/12/2008 HLD (hyperlipidemia) [E78.5] 06/30/2004 ROUTINE MEDICAL EXAM [Z00.00] 06/30/2004 11/26/2014 Disturbance in sleep behavior [G47.9] 06/30/2004 CHEST PAIN NOS [R07.9] 06/30/2004 11/26/2014 ALLERGIC RHINITIS NOS [J30.9] 06/30/2004 JOINT PAIN-SHLDER [M25.519] 06/04/2006 Essential hypertension [I10] 03/12/2008 ESOPHAGEAL REFLUX [K21.9] 03/12/2008 TOBACCO USE DISORDER [F17.200] 03/12/2008 NIMCO (obstructive sleep apnea) [G47.33] 11/15/2019 History of seizure [Z87.898] 11/15/2019 Class 2 obesity due to excess calories without *11/15/2019 Renal cell carcinoma of right kidney (HCC) [C64*07/23/2021 Metastatic renal cell carcinoma (HCC) [C64.9] 07/24/2021 New onset a-fib (HCC) [I48.91] 09/02/2021 Nonrheumatic mitral valve regurgitation [I34.0] 09/04/2021 Acute decompensated heart failure (HCC) [I50.9] 09/22/2021 Prediabetes [R73.03] 10/27/2021 CAD (coronary artery disease) [I25.10] 10/27/2021 Encounter Status:Closed by AMERICA SCHWARTZ on 11/25/21 [facility] CNPNon 11-23-2021 CNPN Normal [facility] CT ABD/PEL W IVCONon 022 CT ABD/PEL W IVCON Normal [facility] CT CHEST W IVCONon 2 CT CHEST W IVCON Normal [facility] No Panel Informationon 11-20 [facility] CNOVSPon 11-19-2021 CNOVSP Visit (SP) Office ([facility]) ----- YEFRI YANEZ ([id number]) [address] [facility] Date Time Provider Department 11/19/21 9:00 AM HAYLEE WILBURN [facility] During your visit today, we recorded the following information about you: Pulse Respiration Blood pressure Weight 76/minute 18/minute 130/82 118.8 kg Height 1.778 m Bernarda Kee MA 11/19/2021 9:58 AM Signed This note was created using NoteWriter. Subjective Yefri Yanez is a 56 year old male. Review of Systems Constitutional: Positive for fatigue. Negative for chills and fever. HENT: Negative for congestion, ear pain, hearing loss, mouth sores, sinus pressure, sinus pain, sore throat, tinnitus and trouble swallowing. Respiratory: Positive for shortness of breath. Negative for cough, choking, chest tightness and wheezing. Cardiovascular: Negative for chest pain and palpitations. Gastrointestinal: Negative for abdominal pain, constipation, diarrhea, nausea and vomiting. Endocrine: Negative for cold intolerance and heat intolerance. Genitourinary: Positive for urgency. Negative for difficulty urinating and flank pain. Musculoskeletal: Positive for back pain, joint swelling and neck pain. Negative for neck stiffness. Skin: Negative for rash. Neurological: Negative for dizziness, tremors, seizures, weakness, light-headedness, numbness and headaches. Psychiatric/Behavioral: Negative for confusion. Objective BP 130/82 Pulse 76 Resp 18 Ht 177.8 cm (5' 10) Wt 118.8 kg (262 lb) BMI 37.59 kg/m? Physical Exam Assessment and Plan Haylee Wilburn MD 11/19/2021 9:58 AM Signed [facility] Progress Note SERVICE DATE: November 19, 2021 ONCOLOGIC HISTORY: Yefri Yanez is a 56 year old male diagnosed with metastatic renal cell ca in June 2021. 06/2021: Presented with syncopal episode. Imaging concerning for R renal mass and rib (R 5th) soft tissue lesion 06/27/21: 7.4cm R renal mass and L4 destructive soft tissue mass 06/30/21: Bone scan showed focal increased tracer uptake are demonstrated in the L4, right lateral sixth rib. 07/01/21: Biopsy of R chest wall mass showing metastatic renal cell carcinoma 08/08/21: Started Cabo and Nivo on Cyto-KIK; TRIAL (CYTO reductive surgery in Kidney cancer plus Immunotherapy (nivolumab) and targeted Kinase inhibition (cabozantinib) 08/18/21-09/11/21, cabo held due to worse HTN. 09/11/21, Nivo held due to pneumonitis. HISTORY OF PRESENT ILLNESS: Mr. Yefri Yanez is a 56 year old male found accidentally in 06/2021 to have a R renal mass, R rib lesion, and L4 lesion. Soft tissue/right chest wall mass biopsy from 07/01/2021 showed metastatic RCC. He started treatment with cabo + nivo on [facility] 1820 Trial on 08/08/2021 at [facility]. He has baseline HTN and developed worsening HTN after starting treatment. His cabo was held on 08/18/2021, resumed on 09/11/2021. The Nivo was held on 09/11/21 due to pneumonitis, and prednisone 60 mg daily was started and tapered off within about one month. Due to insurance change, he was taken off the trial and referred to [facility] to resume the treatment. He was scheduled to have nephrectomy on 11/04/21, but not done because repeat CT scan (11/20/21) needed to be done first. Clinically he is doing pretty well other than back pain radiating to the back his upper legs. He is going to call his PCP for some flexeril. He denies coughing, SOB, headache, new bone pain, or hematuria. He is not actively physically. REVIEW OF SYSTEMS: Review of Systems Constitutional: Negative for appetite change and unexpected weight change. HENT: Negative for hearing loss, lump/mass and sore throat. Eyes: Negative for eye problems and icterus. Respiratory: Negative for cough, hemoptysis and shortness of breath. Cardiovascular: Negative for chest pain and leg swelling. Gastrointestinal: Negative for abdominal pain and blood in stool. Genitourinary: Negative for dysuria and hematuria. Musculoskeletal: Positive for back pain. Negative for gait problem. Skin: Negative for rash. Neurological: Negative for dizziness, gait problem, headaches and seizures. Psychiatric/Behavioral: The patient is nervous/anxious. PHYSICAL EXAM: BP 130/82 Pulse 76 Resp 18 Ht 177.8 cm (5' 10) Wt 118.8 kg (262 lb) BMI 37.59 kg/m2 Body mass index is 37.59 kg/m?. Estimated body surface area is 2.42 meters squared as calculated from the following: Height as of this encounter: 177.8 cm (5' 10). Weight as of this encounter: 118.8 kg (262 lb). ECO- Fully active, able to carry on all pre-disease performance w/o restriction. Physical Exam Constitutional: Appearance: Normal appearance. HENT: Head: Normocephalic and atraumatic. Nose: Nose normal. Eyes: Extraocular Movements: Extraocular movements intact. Conjunctiva/sclera: Conjunctivae normal. Cardiovascular: Rate and Rhythm: No (more content not included)... Normal [facility] CNPNon 11-06-2021 [facility] Telephone ([facility]) ----- YEFRI YANEZ ([id number]) [address] [facility] Date Time Provider Department 11/06/21 AHYLEE WILBURN [facility] During your visit today, we recorded the following information about you: Tania Parekh RN 11/06/2021 9:32 AM Signed Spoke with account maintenance representative from [facility], she is asking that we reach out to patient to have them deliver his Cabometyx. She stated they have called him multiple times, yet he will not answer, and the one time he did answer she went over who she was and patient hung up on her.Tania Parekh RN Allergies As of Date: 11/06/2021 Noted Allergy Reaction LISINOPRIL 09/01/2012 18 - Angioedema SHELLFISH CONTAINING PRODUCTS 06/04/2019 10 - Anaphylaxis 4 - Hives ASPIRIN 07/21/2004 5 - Intolerance MUSHROOM 08/05/2021 4 - Hives PENICILLINS 11/01/2003 5 - Intolerance Date Reviewed: 10/27/2021 Reviewed by: Lisa Christensen PA-C - Fully Assessed Reason for Visit: Patient Update [1234] Prescriptions as of 11/06/2021 - cabozantinib (CABOMETYX) 20 mg tablet Take 1 tablet (20 mg) by mouth once daily. - torsemide (DEMADEX) 20 mg tablet TAKE 2 TABLETS BY MOUTH TO EQUAL 40 MG ONCE PER DAY - predniSONE (DELTASONE) 20 mg tablet Take 2 tablets by mouth once daily. - enoxaparin (LOVENOX) 120 mg/0.8 mL injection Inject 0.8 mL subcutaneously q 12 HR. - spironolactone (ALDACTONE) 25 mg tablet Take 0.5 tablets by mouth once daily. - warfarin (COUMADIN) 5 mg tablet Take 1 tablet by mouth once daily. - carvedilol (COREG) 6.25 mg tablet Take 3 tablets by mouth twice daily. - rosuvastatin (CRESTOR) 40 mg tablet Take 1 tablet by mouth once daily. - albuterol HFA (PROVENTIL HFA, VENTOLIN HFA) 90 mcg/actuation inhaler Inhale 2 Puffs as instructed every 4 hours as needed for wheezing/shortness of breath. - ferrous sulfate 325 mg (65 mg iron) tablet TAKE 1 TABLET BY MOUTH TWICE A DAY - ondansetron (ZOFRAN) 8 mg tablet Take 1 tablet by mouth every 8 hours as needed for nausea/vomiting. - cyclobenzaprine (FLEXERIL) 10 mg tablet Take by mouth three times daily as needed for muscle spasm. - acetaminophen (TYLENOL EXTRA STRENGTH) 500 mg tablet Take 2 tablets by mouth every 6 hours as needed for pain. - pantoprazole DR (PROTONIX) 40 mg tablet Take 1 tablet by mouth once daily. Meds Comments as of 09/29/2021: 09/29/21 The medications are managed by this patient by: SPOUSE Safia Carr, [facility], located within [facility] Problem List As Of Date 11/06/2021 Noted Resolved BENIGN HYPERTENSION [I10] 06/30/2004 03/12/2008 HLD (hyperlipidemia) [E78.5] 06/30/2004 ROUTINE MEDICAL EXAM [Z00.00] 06/30/2004 11/26/2014 Disturbance in sleep behavior [G47.9] 06/30/2004 CHEST PAIN NOS [R07.9] 06/30/2004 11/26/2014 ALLERGIC RHINITIS NOS [J30.9] 06/30/2004 JOINT PAIN-SHLDER [M25.519] 06/04/2006 Essential hypertension [I10] 03/12/2008 ESOPHAGEAL REFLUX [K21.9] 03/12/2008 TOBACCO USE DISORDER [F17.200] 03/12/2008 NIMCO (obstructive sleep apnea) [G47.33] 11/15/2019 History of seizure [Z87.898] 11/15/2019 Class 2 obesity due to excess calories without *11/15/2019 Renal cell carcinoma of right kidney (HCC) [C64*07/23/2021 Metastatic renal cell carcinoma (HCC) [C64.9] 07/24/2021 New onset a-fib (HCC) [I48.91] 09/02/2021 Nonrheumatic mitral valve regurgitation [I34.0] 09/04/2021 Acute decompensated heart failure (HCC) [I50.9] 09/22/2021 Prediabetes [R73.03] 10/27/2021 CAD (coronary artery disease) [I25.10] 10/27/2021 Encounter Status:Closed by TANIA PAREKH on 11/06/21 [facility] CNPN Telephone ([facility]) ----- YEFRI YANEZ ([id number]) 1965 [facility] Date Time Provider Department 11/06/21 AMERICA SCHWARTZ [facility] During your visit today, we recorded the following information about you: Allergies As of Date: 11/06/2021 Noted Allergy Reaction LISINOPRIL 09/01/2012 18 - Angioedema SHELLFISH CONTAINING PRODUCTS 06/04/2019 10 - Anaphylaxis 4 - Hives ASPIRIN 07/21/2004 5 - Intolerance MUSHROOM 08/05/2021 4 - Hives PENICILLINS 11/01/2003 5 - Intolerance Date Reviewed: 10/27/2021 Reviewed by: Lisa Christensen PA-C - Fully Assessed Reason for Visit: Laboratory Apparatus Glass Blower - Other [[id number]] Cmt: Calling to get an update on the patient's surgery schedule (to see if it had been rescheduled), and to inform him that the speciality pharmacy is trying to get a hold of them to deliver his medication. Prescriptions as of 11/06/2021 - cabozantinib (CABOMETYX) 20 mg tablet Take 1 tablet (20 mg) by mouth once daily. - torsemide (DEMADEX) 20 mg tablet TAKE 2 TABLETS BY MOUTH TO EQUAL 40 MG ONCE PER DAY - predniSONE (DELTASONE) 20 mg tablet Take 2 tablets by mouth once daily. - enoxaparin (LOVENOX) 120 mg/0.8 mL injection Inject 0.8 mL subcutaneously q 12 HR. - spironolactone (ALDACTONE) 25 mg tablet Take 0.5 tablets by mouth once daily. - warfarin (COUMADIN) 5 mg tablet Take 1 tablet by mouth once daily. - carvedilol (COREG) 6.25 mg tablet Take 3 tablets by mouth twice daily. - rosuvastatin (CRESTOR) 40 mg tablet Take 1 tablet by mouth once daily. - albuterol HFA (PROVENTIL HFA, VENTOLIN HFA) 90 mcg/actuation inhaler Inhale 2 Puffs as instructed every 4 hours as needed for wheezing/shortness of breath. - ferrous sulfate 325 mg (65 mg iron) tablet TAKE 1 TABLET BY MOUTH TWICE A DAY - ondansetron (ZOFRAN) 8 mg tablet Take 1 tablet by mouth every 8 hours as needed for nausea/vomiting. - cyclobenzaprine (FLEXERIL) 10 mg tablet Take by mouth three times daily as needed for muscle spasm. - acetaminophen (TYLENOL EXTRA STRENGTH) 500 mg tablet Take 2 tablets by mouth every 6 hours as needed for pain. - pantoprazole DR (PROTONIX) 40 mg tablet Take 1 tablet by mouth once daily. Meds Comments as of 09/29/2021: 09/29/21 The medications are managed by this patient by: SPOUSE Safia Carr, [facility], located within [facility] Problem List As Of Date 11/06/2021 Noted Resolved BENIGN HYPERTENSION [I10] 06/30/2004 03/12/2008 HLD (hyperlipidemia) [E78.5] 06/30/2004 ROUTINE MEDICAL EXAM [Z00.00] 06/30/2004 11/26/2014 Disturbance in sleep behavior [G47.9] 06/30/2004 CHEST PAIN NOS [R07.9] 06/30/2004 11/26/2014 ALLERGIC RHINITIS NOS [J30.9] 06/30/2004 JOINT PAIN-SHLDER [M25.519] 06/04/2006 Essential hypertension [I10] 03/12/2008 ESOPHAGEAL REFLUX [K21.9] 03/12/2008 TOBACCO USE DISORDER [F17.200] 03/12/2008 NIMCO (obstructive sleep apnea) [G47.33] 11/15/2019 History of seizure [Z87.898] 11/15/2019 Class 2 obesity due to excess calories without *11/15/2019 Renal cell carcinoma of right kidney (HCC) [C64*07/23/2021 Metastatic renal cell carcinoma (HCC) [C64.9] 07/24/2021 New onset a-fib (HCC) [I48.91] 09/02/2021 Nonrheumatic mitral valve regurgitation [I34.0] 09/04/2021 Acute decompensated heart failure (HCC) [I50.9] 09/22/2021 Prediabetes [R73.03] 10/27/2021 CAD (coronary artery disease) [I25.10] 10/27/2021 Encounter Status:Closed by AMERICA SCHWARTZ on 11/06/21 [facility] Dougie 11-03-2021 CNPN Telephone ([facility]) ----- YEFRI YANEZ ([id number]) [address] [facility] Date Time Provider Department 11/03/21 HAYLEE WILBURN [facility] During your visit today, we recorded the following information about you: Allergies As of Date: 11/03/2021 Noted Allergy Reaction LISINOPRIL 09/01/2012 18 - Angioedema SHELLFISH CONTAINING PRODUCTS 06/04/2019 10 - Anaphylaxis 4 - Hives ASPIRIN 07/21/2004 5 - Intolerance MUSHROOM 08/05/2021 4 - Hives PENICILLINS 11/01/2003 5 - Intolerance Date Reviewed: 10/27/2021 Reviewed by: Lisa Christensen PA-C - Fully Assessed Reason for Visit: Returning Patient's Call [408] Cmt: Trying to f/u with (Miya), patient's called in stating that her 's surgery was canceled that was scheduled for 11/04/21 and they are unsure of why. Prescriptions as of 11/03/2021 - cabozantinib (CABOMETYX) 20 mg tablet Take 1 tablet (20 mg) by mouth once daily. - torsemide (DEMADEX) 20 mg tablet TAKE 2 TABLETS BY MOUTH TO EQUAL 40 MG ONCE PER DAY - predniSONE (DELTASONE) 20 mg tablet Take 2 tablets by mouth once daily. - enoxaparin (LOVENOX) 120 mg/0.8 mL injection Inject 0.8 mL subcutaneously q 12 HR. - spironolactone (ALDACTONE) 25 mg tablet Take 0.5 tablets by mouth once daily. - warfarin (COUMADIN) 5 mg tablet Take 1 tablet by mouth once daily. - carvedilol (COREG) 6.25 mg tablet Take 3 tablets by mouth twice daily. - rosuvastatin (CRESTOR) 40 mg tablet Take 1 tablet by mouth once daily. - albuterol HFA (PROVENTIL HFA, VENTOLIN HFA) 90 mcg/actuation inhaler Inhale 2 Puffs as instructed every 4 hours as needed for wheezing/shortness of breath. - ferrous sulfate 325 mg (65 mg iron) tablet TAKE 1 TABLET BY MOUTH TWICE A DAY - ondansetron (ZOFRAN) 8 mg tablet Take 1 tablet by mouth every 8 hours as needed for nausea/vomiting. - cyclobenzaprine (FLEXERIL) 10 mg tablet Take by mouth three times daily as needed for muscle spasm. - acetaminophen (TYLENOL EXTRA STRENGTH) 500 mg tablet Take 2 tablets by mouth every 6 hours as needed for pain. - pantoprazole DR (PROTONIX) 40 mg tablet Take 1 tablet by mouth once daily. Meds Comments as of 09/29/2021: 09/29/21 The medications are managed by this patient by: SPOUSE Safia Carr, [facility], located within [facility] Problem List As Of Date 11/03/2021 Noted Resolved BENIGN HYPERTENSION [I10] 06/30/2004 03/12/2008 HLD (hyperlipidemia) [E78.5] 06/30/2004 ROUTINE MEDICAL EXAM [Z00.00] 06/30/2004 11/26/2014 Disturbance in sleep behavior [G47.9] 06/30/2004 CHEST PAIN NOS [R07.9] 06/30/2004 11/26/2014 ALLERGIC RHINITIS NOS [J30.9] 06/30/2004 JOINT PAIN-SHLDER [M25.519] 06/04/2006 Essential hypertension [I10] 03/12/2008 ESOPHAGEAL REFLUX [K21.9] 03/12/2008 TOBACCO USE DISORDER [F17.200] 03/12/2008 NIMCO (obstructive sleep apnea) [G47.33] 11/15/2019 History of seizure [Z87.898] 11/15/2019 Class 2 obesity due to excess calories without *11/15/2019 Renal cell carcinoma of right kidney (HCC) [C64*07/23/2021 Metastatic renal cell carcinoma (HCC) [C64.9] 07/24/2021 New onset a-fib (HCC) [I48.91] 09/02/2021 Nonrheumatic mitral valve regurgitation [I34.0] 09/04/2021 Acute decompensated heart failure (HCC) [I50.9] 09/22/2021 Prediabetes [R73.03] 10/27/2021 CAD (coronary artery disease) [I25.10] 10/27/2021 Encounter Status:Closed by AMERICA SCHWARTZ on 11/03/21 [facility] CNPN Telephone ([facility]) ----- YEFRI YANEZ ([id number]) 1965 [facility] Date Time Provider Department 11/03/21 HAYLEE WILBURN [facility] During your visit today, we recorded the following information about you: Allergies As of Date: 11/03/2021 Noted Allergy Reaction LISINOPRIL 09/01/2012 18 - Angioedema SHELLFISH CONTAINING PRODUCTS 06/04/2019 10 - Anaphylaxis 4 - Hives ASPIRIN 07/21/2004 5 - Intolerance MUSHROOM 08/05/2021 4 - Hives PENICILLINS 11/01/2003 5 - Intolerance Date Reviewed: 10/27/2021 Reviewed by: Lisa Christensen PA-C - Fully Assessed Reason for Visit: Returning Patient's Call [408] Cmt: called to say that surgery was canceled d/t an imaging issue (CT). RNCC will f/u to see if surgery is rescheduled. Prescriptions as of 11/03/2021 - cabozantinib (CABOMETYX) 20 mg tablet Take 1 tablet (20 mg) by mouth once daily. - torsemide (DEMADEX) 20 mg tablet TAKE 2 TABLETS BY MOUTH TO EQUAL 40 MG ONCE PER DAY - predniSONE (DELTASONE) 20 mg tablet Take 2 tablets by mouth once daily. - enoxaparin (LOVENOX) 120 mg/0.8 mL injection Inject 0.8 mL subcutaneously q 12 HR. - spironolactone (ALDACTONE) 25 mg tablet Take 0.5 tablets by mouth once daily. - warfarin (COUMADIN) 5 mg tablet Take 1 tablet by mouth once daily. - carvedilol (COREG) 6.25 mg tablet Take 3 tablets by mouth twice daily. - rosuvastatin (CRESTOR) 40 mg tablet Take 1 tablet by mouth once daily. - albuterol HFA (PROVENTIL HFA, VENTOLIN HFA) 90 mcg/actuation inhaler Inhale 2 Puffs as instructed every 4 hours as needed for wheezing/shortness of breath. - ferrous sulfate 325 mg (65 mg iron) tablet TAKE 1 TABLET BY MOUTH TWICE A DAY - ondansetron (ZOFRAN) 8 mg tablet Take 1 tablet by mouth every 8 hours as needed for nausea/vomiting. - cyclobenzaprine (FLEXERIL) 10 mg tablet Take by mouth three times daily as needed for muscle spasm. - acetaminophen (TYLENOL EXTRA STRENGTH) 500 mg tablet Take 2 tablets by mouth every 6 hours as needed for pain. - pantoprazole DR (PROTONIX) 40 mg tablet Take 1 tablet by mouth once daily. Meds Comments as of 09/29/2021: 09/29/21 The medications are managed by this patient by: SPOUSE Safia Carr, [facility], located within [facility] Problem List As Of Date 11/03/2021 Noted Resolved BENIGN HYPERTENSION [I10] 06/30/2004 03/12/2008 HLD (hyperlipidemia) [E78.5] 06/30/2004 ROUTINE MEDICAL EXAM [Z00.00] 06/30/2004 11/26/2014 Disturbance in sleep behavior [G47.9] 06/30/2004 CHEST PAIN NOS [R07.9] 06/30/2004 11/26/2014 ALLERGIC RHINITIS NOS [J30.9] 06/30/2004 JOINT PAIN-SHLDER [M25.519] 06/04/2006 Essential hypertension [I10] 03/12/2008 ESOPHAGEAL REFLUX [K21.9] 03/12/2008 TOBACCO USE DISORDER [F17.200] 03/12/2008 NIMCO (obstructive sleep apnea) [G47.33] 11/15/2019 History of seizure [Z87.898] 11/15/2019 Class 2 obesity due to excess calories without *11/15/2019 Renal cell carcinoma of right kidney (HCC) [C64*07/23/2021 Metastatic renal cell carcinoma (HCC) [C64.9] 07/24/2021 New onset a-fib (HCC) [I48.91] 09/02/2021 Nonrheumatic mitral valve regurgitation [I34.0] 09/04/2021 Acute decompensated heart failure (HCC) [I50.9] 09/22/2021 Prediabetes [R73.03] 10/27/2021 CAD (coronary artery disease) [I25.10] 10/27/2021 Encounter Status:Closed by AMERICA SCHWARTZ on 11/03/21 [facility] CBC W Auto Differential pane l (Bld)on 10-27-2021 Basophils (Bld) [#/Vol] 0.03 10*3/uL Normal <0.11 [facility] Comment on above: Order Comment: Speci men Type: BLOOD SPECIMENOrdering Facility: [facility] Address: [address] [place] [address] Performed By: #### 5 7021-8 ####[facility] [id number] [place] [address] [place] Basophils/100 WBC (Bld) 0.6 % Normal C [facility] Comment on above: Order Comment: Speci men Type: BLOOD SPECIMENOrdering Facility: [facility] Address: [address] [place] [address] Performed By: #### 5 7021-8 ####[facility] [id number] [place] [address] [place] Differential cell count method Nom (Bld) Auto Normal [facility] Comment on above: Order Comment: Speci men Type: BLOOD SPECIMENOrdering Facility: [facility] Address: [address] [place], [place] [address] Performed By: #### 5 7021-8 ####[facility] [id number] [place] [address] [place] Eosinophils (Bld) [#/Vol] 0.03 10*3/uL Normal <0.46 [facility] Comment on above: Order Comment: Speci men Type: BLOOD SPECIMENOrdering Facility: [facility] Address: [address] [place], [place] [address] Performed By: #### 5 7021-8 ####[facility] [id number] [place] [address] [place] Eosinophils/100 WBC (Bld) 0.6 % Normal [facility] Comment on above: Order Comment: Speci men Type: BLOOD SPECIMENOrdering Facility: [facility] Address: [address] [place], [place] [address] Performed By: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 Comment: Speci men Type: BLOOD SPECIMENOrdering Facility: [facility] Address: [address] [place], [place] [address] Performed By: #### 5 7021-8 ####[facility] [place] [place] [id number] [place] [address] [place] Eosinophils (Bld) [#/Vol] 0.03 10*3/uL Normal <0.46 [facility] Comment on above: Order Comment: Speci men Type: BLOOD SPECIMENOrdering Facility: [facility] Address: [address] [place] [address] Performed By: #### 5 7021-8 ####[facility] [place] [place] [id number] [place] [address] [place] Eosinophils/100 WBC (Bld) 0.4 % Normal [facility] Comment on above: Order Comment: Speci men Type: BLOOD SPECIMENOrdering Facility: [facility] Address: [address] [place], [place] [address] Performed By: #### 5 7021-8 ####[facility] [id number] [place] [address] [place] Erythrocyte distribution width (RBC) [Ratio] 17.2 % High 11.5-15.0 [facility] Comment on above: Order Comment: Speci men Type: BLOOD SPECIMENOrdering Facility: [facility] Address: [address] [place], [place] [address] Performed By: #### 5 7021-8 ####[facility] [place] [id number] [place] [address] [place] Hematocrit (Bld) [Volume fraction] 46.8 % Normal 39.0-51.0 [facility] Comment on above: Order Comment: Speci men Type: BLOOD SPECIMENOrdering Facility: [facility] Address: [address] [place] [address] Performed By: #### 5 7021-8 ####[facility] [id number] [place] [address] [place] Hemoglobin (Bld) [Mass/Vol] 15.5 g/dL Normal 13.0-17.0 [facility] Comment on above: Order Comment: Speci men Type: BLOOD SPECIMENOrdering Facility: [facility] Address: [address] [place] [address] Performed By: #### 5 7021-8 ####[facility] [place] [place] [id number] [place] [address] [facility] IMMATURE GRAN % 0.8 % Normal [facility] Comment on above: Order Comment: Speci men Type: BLOOD SPECIMENOrdering Facility: [facility] Address: [address] [place] [address] Performed By: #### 5 7021-8 ####[facility] [id number] [place] [address] [facility] IMMATURE GRAN ABS 0.06 k/uL Normal <0.10 [facility] Comment on above: Order Comment: Speci men Type: BLOOD SPECIMENOrdering Facility: [facility] Address: [address] [place] [address] Performed By: #### 5 7021-8 ####[facility] [id number] [place] [address] [place] POP Lymphocytes (Bld) [#/Vol] 2.33 10*3/uL Normal 1.00-4.00 [facility] Comment on above: Order Comment: Speci men Type: BLOOD SPECIMENOrdering Facility: [facility] Address: [address] [place], [place] [address] Performed By: #### 5 7021-8 ####[facility] [id number] [place] [address] STATES [facility] Lymphocytes/100 WBC (Bld) 32.3 % Normal [facility] Comment on above: Order Comment: Speci men Type: BLOOD SPECIMENOrdering Facility: [facility] Address: [address] [place], [place] [address] Performed By: #### 5 7021-8 ####[facility] [id number] [place] [address] [place] MCH (RBC) [Entitic mass] 30.2 pg Normal 26.0-34.0 [facility] Comment on above: Order Comment: Speci men Type: BLOOD SPECIMENOrdering Facility: [facility] Address: [address] [place], [place] [address] Performed By: #### 5 7021-8 ####[facility] [id number] [place] [address] [place] MCHC (RBC) [Mass/Vol] 33.1 g/dL Normal 30.5-36.0 [facility] Comment on above: Order Comment: Speci men Type: BLOOD SPECIMENOrdering Facility: [facility] Address: [address] [place], [place] [address] Performed By: #### 5 7021-8 ####[facility] [id number] [place] [address] [place] MCV (RBC) [Entitic vol] 91.2 fL Normal 80.0-100.0 [facility] Comment on above: Order Comment: Speci men Type: BLOOD SPECIMENOrdering Facility: [facility] Address: [address] [place], [place] [address] Performed By: #### 5 7021-8 ####[facility] [id number] [place] [address] [place] Monocytes (Bld) [#/Vol] 0.35 10*3/uL Normal <0.87 [facility] Comment on above: Order Comment: Speci men Type: BLOOD SPECIMENOrdering Facility: [facility] Address: [address] [place] [address] Performed By: #### 5 7021-8 ####[facility] [id number] [place] [address] [place] Monocytes/100 WBC (Bld) 4.8 % Normal [facility] Comment on above: Order Comment: Speci men Type: BLOOD SPECIMENOrdering Facility: [facility] Address: [address] [place] [address] Performed By: #### 5 7021-8 ####[facility] [id number] [place] [address] [place] Neutrophils (Bld) [#/Vol] 4.43 10*3/uL Normal 1.45-7.50 [facility] Comment on above: Order Comment: Speci men Type: BLOOD SPECIMENOrdering Facility: [facility] Address: [address] [place] [address] Performed By: #### 5 7021-8 ####[facility] [id number] [place] [address] [place] Neutrophils/100 WBC (Bld) 61.4 % Normal [facility] Comment on above: Order Comment: Speci men Type: BLOOD SPECIMENOrdering Facility: [facility] Address: [address] [place], [place] [address] Performed By: #### 5 7021-8 ####[facility] [id number] [place] [address] [place] Nucleated RBC (Bld) [#/Vol] 10*3/uL Normal <0.01 [facility] Comment on above: Order Comment: Speci men Type: BLOOD SPECIMENOrdering Facility: [facility] Address: [address] [place], [place] [address] Performed By: #### 5 7021-8 ####[facility] [id number] [place] [address] [place] Nucleated RBC/100 WBC (Bld) [Ratio] 0.0 /100 WBC Normal [facility] Comment on above: Order Comment: Speci men Type: BLOOD SPECIMENOrdering Facility: [facility] Address: [address] [place], [place] [address] Performed By: #### 5 7021-8 ####[facility] [id number] [place] [address] [place] Platelet mean volume (Bld) [Entitic vol] 9.1 fL Normal 9.0-12.7 [facility] Comment on above: Order Comment: Speci men Type: BLOOD SPECIMENOrdering Facility: [facility] Address: [address] [place], [place] [address] Performed By: #### 5 7021-8 ####[facility] [id number] [place] [address] [place] Platelets (Bld) [#/Vol] 243 10*3/uL Normal 150-400 [facility] Comment on above: Order Comment: Speci men Type: BLOOD SPECIMENOrdering Facility: [facility] Address: [address] [place], [place] [address] Performed By: #### 5 7021-8 ####[facility] [id number] [place] [address] [place] RBC (Bld) [#/Vol] 5.13 10*6/uL Normal 4.20-6.00 [facility] Comment on above: Order Comment: Speci men Type: BLOOD SPECIMENOrdering Facility: [facility] Address: [address] [place] [address] Performed By: #### 5 7021-8 ####[facility] [id number] [place] [address] [place] WBC (Bld) [#/Vol] 7.22 10*3/uL Normal 3.70-11.00 [facility] Comment on above: Order Comment: Speci men Type: BLOOD SPECIMENOrdering Facility: [facility] Address: [address] [place], [place] [address] Performed By: #### 5 7021-8 ####[facility] [id number] [place] [address] [place] CNNURSEon 10-09-2021 CNNURSE Normal [facility] CNOVSPon 10-09-2021 CNOVSP Normal [facility] Comprehensive metabolic 2000 panelon 10-09-2021 Albumin [Mass/Vol] 4.0 g/dL Normal 3.9-4.9 [facility] Comment on above: Order Comment: Speci men Type: BLOOD SPECIMENOrdering Facility: [facility] Address: [address] [place], [place] [address] Performed By: #### 2 4323-8, 1, ####[facility] [id number] [place] [address] [place] ALP [Catalytic activity/Vol] 89 U/L Normal 38-113 [facility] Comment on above: Order Comment: Speci men Type: BLOOD SPECIMENOrdering Facility: [facility] Address: [address] [place], [place] [address] Performed By: #### 2 4323-8, 3083-1, ####[facility] [id number] [place] [address] [place] ALT [Catalytic activity/Vol] 50 U/L Normal 10-54 [facility] Comment on above: Order Comment: Speci men Type: BLOOD SPECIMENOrdering Facility: [facility] Address: [address] [place] [address] Performed By: #### 2 4323-8, 3083-, ####[facility] [id number] [place] [address] [place] Anion gap [Moles/Vol] 9 mmol/L Normal 9-18 [facility] Comment on above: Order Comment: Speci men Type: BLOOD SPECIMENOrdering Facility: [facility] Address: [address] [place], [place] [address] Performed By: #### 2 4323-8, 3083-, ####[facility] [id number] [place] [address] [place] AST [Catalytic activity/Vol] 24 U/L Normal 14-40 [facility] Comment on above: Order Comment: Speci men Type: BLOOD SPECIMENOrdering Facility: [facility] Address: [address] [place], [place] [address] Performed By: #### 2 4323-8, 3083-03, ####[facility] [id number] [place] [address] [place] Bilirubin [Mass/Vol] 0.3 mg/dL Normal 0.2-1.3 [facility] Comment on above: Order Comment: Speci men Type: BLOOD SPECIMENOrdering Facility: [facility] Address: [address] [place] [address] Performed By: #### 2 4323-8, 1, ####[facility] [id number] [place] [address] [place] Calcium [Mass/Vol] 9.3 mg/dL Normal 8.5-10.2 [facility] Comment on above: Order Comment: Speci men Type: BLOOD SPECIMENOrdering Facility: [facility] Address: [address] [place], [place] [address] Performed By: #### 2 4323-8, 3084-1, ####[facility] [id number] [place] [address] [place] Chloride [Moles/Vol] 104 mmol/L Normal 97-105 [facility] Comment on above: Order Comment: Speci men Type: BLOOD SPECIMENOrdering Facility: [facility] Address: [address] [place], [place] [address] Performed By: #### 2 4323-8, 3084-1, ####[facility] [id number] [place] [address] [place] CO2 [Moles/Vol] 28 mmol/L Normal 22-30 [facility] Comment on above: Order Comment: Speci men Type: BLOOD SPECIMENOrdering Facility: [facility] Address: [address] [place] [address] Performed By: #### 2 4323-8, 3084-1, ####[facility] [id number] [place] [address] [place] Creatinine [Mass/Vol] 1.19 mg/dL Normal 0.73-1.22 [facility] Comment on above: Order Comment: Speci men Type: BLOOD SPECIMENOrdering Facility: [facility] Address: [address] [place], [place] [address] Performed By: #### 2 4323-8, 308-1, ####[facility] [id number] [place] [address] [place] ESTIMATED GLOMERULAR FILTRATION RATE 71 mL/min/1.73m??? Normal >=60 [facility] Comment on above: Order Comment: Speci men Type: BLOOD SPECIMENOrdering Facility: [facility] Address: [address] [place], [place] [address] Result Comment: Laurita mated Glomerular Filtration Rate (eGFR) is calculated using the 2020 CKD-EPI creatinine equation. This equation utilizes serum creatinine, sex, and age as parameters. The creatinine assay has traceable calibration to isotope dilution-mass spectrometry. Refer to KDIGO guidelines for clinical interpretation. In patients with unstable renal function, e.g. those with acute kidney injury, the eGFR may not accurately reflect actual GFR. Performed By: #### 2 4323-8, 3083-03, ####[facility] [id number] [place] [address] [place] Glucose [Mass/Vol] 131 mg/dL High 74-99 [facility] Comment on above: Order Comment: Aaliyah gibson Type: BLOOD SPECIMENOrdering Facility: [facility] Address: [address] [place], [place] [address] Result Comment: The [place] [employer] (ADA) provides guidance for cutoff values for fasting glucose and random glucose. The ADA defines fasting as no caloric intake for at least 8 hours. Fasting plasma glucose results between 100 to 125 mg/dL indicate increased risk for diabetes (prediabetes).Fasting plasma glucose results greater than or equal to 126 mg/dL meet the criteria for diagnosis of diabetes. In the absence of unequivocal hyperglycemia, results should be confirmed by repeat testing. In a patient with classic symptoms of hyperglycemia or hyperglycemic crisis, random plasma glucose results greater than or equal to 200 mg/dL meet the criteria for diagnosis of diabetes.Reference: Standards of Medical Care in Diabetes 2016, [place] [employer]. Diabetes Care. 2016.39(Suppl 1). Performed By: #### 2 4323-8, 3083-03, ####[facility] [id number] [place] [id number] [place] Potassium [Moles/Vol] 4.0 mmol/L Normal 3.7-5.1 [facility] Comment on above: Order Comment: Ronyi men Type: BLOOD SPECIMENOrdering Facility: [facility] Address: [address] [place] [phone] Performed By: #### 2 4323-8, 3084-1, ####[facility] [id number] [place] [address] [place] Protein [Mass/Vol] 6.4 g/dL Normal 6.3-8.0 [facility] Comment on above: Order Comment: Speci men Type: BLOOD SPECIMENOrdering Facility: [facility] Address: [address] [place], [place] [address] Performed By: #### 2 4323-8, 3084-1, ####[facility] [id number] [place] [address] [place] Sodium [Moles/Vol] 141 mmol/L Normal 136-144 [facility] Comment on above: Order Comment: Speci men Type: BLOOD SPECIMENOrdering Facility: [facility] Address: [address] [place], [place] [address] Performed By: #### 2 4323-8, 3084-1, ####[facility] [id number] [place] [address] [place] Urea nitrogen [Mass/Vol] 19 mg/dL Normal 9-24 [facility] Comment on above: Order Comment: Speci men Type: BLOOD SPECIMENOrdering Facility: [facility] Address: [address] [place], [place] [address] Performed By: #### 2 4323-8, 308-1, ####[facility] [id number] [place] [id number] [place] LDH SerPl-cCncon 10-09-2021 LDH [Catalytic activity/Vol] 348 U/L High 135-225 [facility] Comment on above: Order Comment: Speci men Type: BLOOD SPECIMENOrdering Facility: [facility] Address: [address] [place], [place] [address] Performed By: #### 2 532-0 ####[facility] [id number] [place] [id number] [place] Magnesium SerPl-mCncon 10-09 Magnesium [Mass/Vol] 2.2 mg/dL Normal 1.7-2.3 [facility] Comment on above: Order Comment: Speci paige Type: BLOOD SPECIMENOrdering Facility: [facility] Address: [address] [place] [address] Performed By: #### 2 4323-8, 3084-1, 54121-8 ####[facility] [id number] [address] PT panel Coag (PPP)on 2021 INR Coag (PPP) [Relative time] 2.8 {INR} High 0.9-1.3 [facility] Comment on above: Order Comment: Speci paige Type: BLOOD SPECIMENOrdering Facility: [facility] Address: [address] [place] [address] Result Comment: Constanza min K Antagonist (VKA) Therapeutic Range: INR 2 to 3 (Target INR of 2.5)Note: For patients treated with VKA drugs, such as warfarin, the [place] [employer] 2012 Guideline recommends a therapeutic INR range of 2 to 3 (target INR of 2.5). This recommendation includes high-risk patients with antiphospholipid syndrome with previous arterial or venous thromboembolism, current-generation mechanical or bioprosthetic aortic heart valve replacement.Note: Patients with mechanical aortic valve replacement and additional risk factors for thromboembolic events (atrial fibrillation, previous thromboembolism, LV dysfunction, hypercoagulable conditions) or an older generation mechanical AVR (i.e., ball in-Cage) or any mechanical MVR should have a INR therapeutic range of 2.5 to 3.5 (target INR of 3).Lars GH, et al. Chest 2012, 141:7S-47SCaitie RA, et al. [facility] 2017, 70: 252-289 Performed By: #### 1 4979-9, 71997-5 ####[facility] [id number] [place] [address] [place] PT Coag (PPP) [Time] 27.9 s High 9.7-13.0 [facility] Comment on above: Order Comment: Speci men Type: BLOOD SPECIMENOrdering Facility: [facility] Address: [address] [place] [address] Performed By: #### 1 4979-9, 00035-1 ####[facility] [id number] [place] [address] [place] Phosphate SerPl-mCncon 10-09 Phosphate [Mass/Vol] 3.4 mg/dL Normal 2.7-4.8 [facility] Comment on above: Order Comment: Speci men Type: BLOOD SPECIMENOrdering Facility: [facility] Address: [address] [place] [address] Performed By: #### 2 777-1 ####[facility] [id number] [place] [address] [place] T3Free SerPl-mCncon 10-10-19 22 Free T3 [Mass/Vol] 3.0 pg/mL Normal 2.3-4.1 [facility] Comment on above: Order Comment: Speci men Type: BLOOD SPECIMENOrdering Facility: [facility] Address: [address] [place], [place] [address] Performed By: #### 3 051-0, 3024-7 ####[facility] [id number] [place] [address] [place] T4 Free SerPl-mCncon 022 Free T4 [Mass/Vol] 1.2 ng/dL Normal 0.9-1.7 [facility] Comment on above: Order Comment: Speci men Type: BLOOD SPECIMENOrdering Facility: [facility] Address: [address] [place], [place] [address] Performed By: #### 3 051-0, 3024-7 ####[facility] [id number] [place] [address] [place] TSH SerPl-aCncon 10-09-2021 TSH Qn 0.925 m[IU]/L Normal 0.270-4.20 0 [facility] Comment on above: Order Comment: Speci men Type: BLOOD SPECIMENOrdering Facility: [facility] Address: [address] [place] [address] Performed By: #### 3 016-3 ####[facility] [id number] [place] [address] [place] Urate SerPl-mCncon Urate [Mass/Vol] 8.3 mg/dL High 4.0-8.1 [facility] Comment on above: Order Comment: Speci men Type: BLOOD SPECIMENOrdering Facility: [facility] Address: [address] [place] [address] Performed By: #### 2 4323-8, 3084-1, 10415-5 ####[facility] [id number] [place] [address] [place] aPTT PPPon 10-09-2021 aPTT Coag (PPP) [Time] 31.7 s Normal 23.0-32.4 [facility] Comment on above: Order Comment: Speci men Type: BLOOD SPECIMENOrdering Facility: [facility] Address: [address] [place] [address] Performed By: #### 1 4979-9, 39321-1 ####[facility] [id number] [place] [address] [place] CNPNon 09-29-2021 CNPN Normal [facility] CNPTOUTREACHon 09-29-2021 CNPTOUTREACH Normal [facility] Basic metabolic 2000 panelon 09-26-2021 Anion gap [Moles/Vol] 6 mmol/L Low 9-18 [facility] Comment on above: Order Comment: Speci men Type: BLOOD SPECIMENOrdering Facility: [facility] Address: [address] [place], [place] [address] Performed By: #### 2 4321-2 ####[facility] [id number] [facility] [address] [place] Calcium [Mass/Vol] 9.9 mg/dL Normal 8.5-10.2 [facility] Comment on above: Order Comment: Speci men Type: BLOOD SPECIMENOrdering Facility: [facility] Address: [address] [place], [place] [address] Performed By: #### 2 4321-2 ####[facility] [id number] [place] [address] [place] Chloride [Moles/Vol] 98 mmol/L Normal 97-105 [facility] Comment on above: Order Comment: Speci men Type: BLOOD SPECIMENOrdering Facility: [facility] Address: [address] [place], [place] [address] Performed By: #### 2 4321-2 ####[facility] [id number] [place] [address] [place] CO2 [Moles/Vol] 38 mmol/L High 22-30 [facility] Comment on above: Order Comment: Speci men Type: BLOOD SPECIMENOrdering Facility: [facility] Address: [address] [place] [address] Performed By: #### 2 4321-2 ####[facility] [id number] [place] [address] [place] Creatinine [Mass/Vol] 1.07 mg/dL Normal 0.73-1.22 [facility] Comment on above: Order Comment: Speci men Type: BLOOD SPECIMENOrdering Facility: [facility] Address: [address] [place], [place] [address] Performed By: #### 2 4321-2 ####[facility] [id number] [address] ESTIMATED GLOMERULAR FILTRATION RATE 81 mL/min/1.73m??? Normal >=60 [facility] Comment on above: Order Comment: Aaliyah gibson Type: BLOOD SPECIMENOrdering Facility: [facility] Address: [address] [place] [address] Result Comment: Laurita mated Glomerular Filtration Rate (eGFR) is calculated using the 2020 CKD-EPI creatinine equation. This equation utilizes serum creatinine, sex, and age as parameters. The creatinine assay has traceable calibration to isotope dilution-mass spectrometry. Refer to KDIGO guidelines for clinical interpretation. In patients with unstable renal function, e.g. those with acute kidney injury, the eGFR may not accurately reflect actual GFR. Performed By: #### 2 4321-2 ####[facility] [id number] [address] Glucose [Mass/Vol] 127 mg/dL High 74-99 [facility] Comment on above: Order Comment: Aaliyah gibson Type: BLOOD SPECIMENOrdering Facility: [facility] Address: [address] [place] [address] Result Comment: The [place] [employer] (ADA) provides guidance for cutoff values for fasting glucose and random glucose. The ADA defines fasting as no caloric intake for at least 8 hours. Fasting plasma glucose results between 100 to 125 mg/dL indicate increased risk for diabetes (prediabetes).Fasting plasma glucose results greater than or equal to 126 mg/dL meet the criteria for diagnosis of diabetes. In the absence of unequivocal hyperglycemia, results should be confirmed by repeat testing. In a patient with classic symptoms of hyperglycemia or hyperglycemic crisis, random plasma glucose results greater than or equal to 200 mg/dL meet the criteria for diagnosis of diabetes.Reference: Standards of Medical Care in Diabetes 2016, [place] [employer]. Diabetes Care. 2016.39(Suppl 1). Performed By: #### 2 4321-2 ####[facility] [id number] [place] [address] [place] Potassium [Moles/Vol] 3.7 mmol/L Normal 3.7-5.1 [facility] Comment on above: Order Comment: Speci men Type: BLOOD SPECIMENOrdering Facility: [facility] [facility] Address: [address] [place], [place] [address] Performed By: #### 2 4321-2 ####[facility] [id number] [place] [address] [place] Sodium [Moles/Vol] 142 mmol/L Normal 136-144 [facility] Comment on above: Order Comment: Speci men Type: BLOOD SPECIMENOrdering Facility: [facility] Address: [address] [place] [address] Performed By: #### 2 4321-2 ####[facility] [id number] [place] [address] [place] Urea nitrogen [Mass/Vol] 27 mg/dL High 9-24 [facility] Comment on above: Order Comment: Speci men Type: BLOOD SPECIMENOrdering Facility: [facility] Address: [address] [place], [place] [address] Performed By: #### 2 4321-2 ####[facility] [id number] [place] [address] [place] CBC panel Auto (Bld)on 09-26 Erythrocyte distribution width (RBC) [Ratio] 17.2 % High 11.5-15.0 [facility] Comment on above: Order Comment: Speci men Type: BLOOD SPECIMENOrdering Facility: [facility] Address: [address] [place], [place] [address] Performed By: #### 5 8410-2 ####[facility] [id number] [place] [address] [place] Hematocrit (Bld) [Volume fraction] 41.7 % Normal 39.0-51.0 [facility] Comment on above: Order Comment: Speci men Type: BLOOD SPECIMENOrdering Facility: [facility] Address: [address] [place] [address] Performed By: #### 5 8410-2 ####[facility] [id number] [place] [address] [place] Hemoglobin (Bld) [Mass/Vol] 13.4 g/dL Normal 13.0-17.0 [facility] Comment on above: Order Comment: Speci men Type: BLOOD SPECIMENOrdering Facility: [facility] Address: [address] [place] [address] Performed By: #### 5 8410-2 ####[facility] [id number] [place] [address] [place] MCH (RBC) [Entitic mass] 29.8 pg Normal 26.0-34.0 [facility] Comment on above: Order Comment: Speci men Type: BLOOD SPECIMENOrdering Facility: [facility] Address: [address] [place] [address] Performed By: #### 5 8410-2 ####[facility] [id number] [place] [address] [place] MCHC (RBC) [Mass/Vol] 32.1 g/dL Normal 30.5-36.0 [facility] Comment on above: Order Comment: Speci men Type: BLOOD SPECIMENOrdering Facility: [facility] Address: [address] [place], [place] [address] Performed By: #### 5 8410-2 ####[facility] [id number] [place] [address] [place] MCV (RBC) [Entitic vol] 92.7 fL Normal 80.0-100.0 [facility] Comment on above: Order Comment: Speci men Type: BLOOD SPECIMENOrdering Facility: [facility] Address: [address] [place] [address] [place] Performed By: #### 5 8410-2 ####[facility] [id number] [place] [address] [place] Nucleated RBC (Bld) [#/Vol] 0.02 10*3/uL High <0.01 [facility] Comment on above: Order Comment: Speci men Type: BLOOD SPECIMENOrdering Facility: [facility] Address: [address] [place] [address] Performed By: #### 5 8410-2 ####[facility] [id number] [place] [address] [place] Platelet mean volume (Bld) [Entitic vol] 10.4 fL Normal 9.0-12.7 [facility] Comment on above: Order Comment: Speci men Type: BLOOD SPECIMENOrdering Facility: [facility] Address: [address] [place] [address] Performed By: #### 5 8410-2 ####[facility] [id number] [place] [address] [place] Platelets (Bld) [#/Vol] 177 10*3/uL Normal 150-400 [facility] Comment on above: Order Comment: Speci men Type: BLOOD SPECIMENOrdering Facility: [facility] Address: [address] [place] [address] Performed By: #### 5 8410-2 ####[facility] [id number] [place] [address] [place] RBC (Bld) [#/Vol] 4.50 10*6/uL Normal 4.20-6.00 [facility] Comment on above: Order Comment: Speci men Type: BLOOD SPECIMENOrdering Facility: [facility] Address: [address] [place], [place] [address] Performed By: #### 5 8410-2 ####[facility] [id number] [place] [id number] [place] WBC (Bld) [#/Vol] 9.26 10*3/uL Normal 3.70-11.00 [facility] Comment on above: Order Comment: Aaliyah gibson Type: BLOOD SPECIMENOrdering Facility: [facility] Address: [address] [place], [place] [address] Performed By: #### 5 8410-2 ####[facility] [id number] [place] [id number] [place] CNDSon 09-26-2021 CNDS Normal [facility] ECG COMPLETEon 09-26-2021 ECG COMPLETE Normal [facility] ECHOLon 09-26-2021 ECHOL Normal [facility] NURSING PROGon 09-26-2021 NURSING PROG Normal [facility] PT EDon 09-26-2021 PT ED Normal [facility] PT panel Coag (PPP)on 2021 INR Coag (PPP) [Relative time] 1.3 {INR} Normal 0.9-1.3 [facility] Comment on above: Order Comment: Aaliyah gibson Type: BLOOD SPECIMENOrdering Facility: [facility] Address: [address] [place], [place] [address] Result Comment: Constanza min K Antagonist (VKA) Therapeutic Range: INR 2 to 3 (Target INR of 2.5)Note: For patients treated with VKA drugs, such as warfarin, the [place] [employer] 2012 Guideline recommends a therapeutic INR range of 2 to 3 (target INR of 2.5). This recommendation includes high-risk patients with antiphospholipid syndrome with previous arterial or venous thromboembolism, current-generation mechanical or bioprosthetic aortic heart valve replacement.Note: Patients with mechanical aortic valve replacement and additional risk factors for thromboembolic events (atrial fibrillation, previous thromboembolism, LV dysfunction, hypercoagulable conditions) or an older generation mechanical AVR (i.e., ball in-Cage) or any mechanical MVR should have a INR therapeutic range of 2.5 to 3.5 (target INR of 3).Lars JAMISON, et al. Chest 2012, 141:7S-47SCaitie RA, et al. [facility] 2017, 70: 252-289 Performed By: #### 3 4528-0 ####[facility] [id number] [place] [address] [place] PT Coag (PPP) [Time] 13.5 s High 9.7-13.0 [facility] Comment on above: Order Comment: Speci men Type: BLOOD SPECIMENOrdering Facility: [facility] Address: [address] [place], [place] [address] Performed By: #### 3 4528-0 ####[facility] [id number] [place] [address] [place] ANES POSTPROC EVALon 022 ANES POSTPROC EVAL Normal [facility] ANES PRE-OPon 09-25-2021 ANES PRE-OP Normal [facility] Basic metabolic 2000 panelon 09-25-2021 Anion gap [Moles/Vol] 10 mmol/L Normal 9-18 [facility] Comment on above: Order Comment: Speci men Type: BLOOD SPECIMENOrdering Facility: [facility] Address: [address] [place], [place] [address] Performed By: #### 1 9123-9, 37474-7 ####[facility] [id number] [place] [address] [place] Calcium [Mass/Vol] 9.4 mg/dL Normal 8.5-10.2 [facility] Comment on above: Order Comment: Speci men Type: BLOOD SPECIMENOrdering Facility: [facility] Address: [address] [place] [address] Performed By: #### 1 9123-9, 47546-9 ####[facility] [id number] [place] [address] [place] Chloride [Moles/Vol] 99 mmol/L Normal 97-105 [facility] Comment on above: Order Comment: Speci men Type: BLOOD SPECIMENOrdering Facility: [facility] Address: [address] [place], [place] [address] Performed By: #### 1 9123-9, 49644-3 ####[facility] [id number] [place] [address] [place] CO2 [Moles/Vol] 31 mmol/L High 22-30 [facility] Comment on above: Order Comment: Speci men Type: BLOOD SPECIMENOrdering Facility: [facility] Address: [address] [place] [address] Performed By: #### 1 9123-9, 80675-6 ####[facility] [id number] [address] [place] [facility] Creatinine [Mass/Vol] 0.95 mg/dL Normal 0.73-1.22 [facility] Comment on above: Order Comment: Speci men Type: BLOOD SPECIMENOrdering Facility: [facility] Address: [address] [place] [address] Performed By: #### 1 9123-9, 99059-8 ####[facility] [id number] [address] [facility] ESTIMATED GLOMERULAR FILTRATION RATE 93 mL/min/1.73m??? Normal >=60 [facility] Comment on above: Order Comment: Speci men Type: BLOOD SPECIMENOrdering Facility: [facility] Address: [address] [place], [place] [address] Result Comment: Laurita mated Glomerular Filtration Rate (eGFR) is calculated using the 2020 CKD-EPI creatinine equation. This equation utilizes serum creatinine, sex, and age as parameters. The creatinine assay has traceable calibration to isotope dilution-mass spectrometry. Refer to KDIGO guidelines for clinical interpretation. In patients with unstable renal function, e.g. those with acute kidney injury, the eGFR may not accurately reflect actual GFR. Performed By: #### 1 9123-9, 24892-5 ####[facility] [id number] [place] [address] [place] Glucose [Mass/Vol] 116 mg/dL High 74-99 [facility] Comment on above: Order Comment: Speci men Type: BLOOD SPECIMENOrdering Facility: [facility] Address: [address] [place] [address] Result Comment: The [place] [employer] (ADA) provides guidance for cutoff values for fasting glucose and random glucose. The ADA defines fasting as no caloric intake for at least 8 hours. Fasting plasma glucose results between 100 to 125 mg/dL indicate increased risk for diabetes (prediabetes).Fasting plasma glucose results greater than or equal to 126 mg/dL meet the criteria for diagnosis of diabetes. In the absence of unequivocal hyperglycemia, results should be confirmed by repeat testing. In a patient with classic symptoms of hyperglycemia or hyperglycemic crisis, random plasma glucose results greater than or equal to 200 mg/dL meet the criteria for diagnosis of diabetes.Reference: Standards of Medical Care in Diabetes 2016, [place] [employer]. Diabetes Care. 2016.39(Suppl 1). Performed By: #### 1 9123-9, 73286-3 ####[facility] [id number] [place] [address] [place] Potassium [Moles/Vol] 3.8 mmol/L Normal 3.7-5.1 [facility] Comment on above: Order Comment: Speci men Type: BLOOD SPECIMENOrdering Facility: [facility] Address: [address] Performed By: #### 1 9123-9, 68868-8 ####[facility] [id number] [place] [address] [place] Sodium [Moles/Vol] 140 mmol/L Normal 136-144 [facility] Comment on above: Order Comment: Speci men Type: BLOOD SPECIMENOrdering Facility: [facility] Address: [address] [place] [address] Performed By: #### 1 9123-9, 58903-1 ####[facility] [id number] [place] [address] [place] Urea nitrogen [Mass/Vol] 24 mg/dL Normal 9-24 [facility] Comment on above: Order Comment: Speci men Type: BLOOD SPECIMENOrdering Facility: [facility] Address: [address] [place] [address] Performed By: #### 1 9123-9, 70371-4 ####[facility] [id number] [address] [place] CASE MANAGEMon 09-25-2021 CASE MANAGEM Normal [facility] CBC panel Auto (Bld)on 09-25 Erythrocyte distribution width (RBC) [Ratio] 17.1 % High 11.5-15.0 [facility] Comment on above: Order Comment: Speci men Type: BLOOD SPECIMENOrdering Facility: [facility] Address: [address] [place], [place] [address] Performed By: #### 5 8410-2 ####[facility] [id number] [address] [place] Hematocrit (Bld) [Volume fraction] 41.6 % Normal 39.0-51.0 [facility] Comment on above: Order Comment: Speci men Type: BLOOD SPECIMENOrdering Facility: [facility] Address: [address] [place] [address] Performed By: #### 5 8410-2 ####[facility] [id number] [place] [address] [place] Hemoglobin (Bld) [Mass/Vol] 13.7 g/dL Normal 13.0-17.0 [facility] Comment on above: Order Comment: Speci men Type: BLOOD SPECIMENOrdering Facility: [facility] Address: [address] [place] [address] Performed By: #### 5 8410-2 ####[facility] [id number] [address] [place] MCH (RBC) [Entitic mass] 30.3 pg Normal 26.0-34.0 [facility] Comment on above: Order Comment: Speci men Type: BLOOD SPECIMENOrdering Facility: [facility] Address: [address] [place] [address] Performed By: #### 5 8410-2 ####[facility] [id number] [place] [address] [place] MCHC (RBC) [Mass/Vol] 32.9 g/dL Normal 30.5-36.0 [facility] Comment on above: Order Comment: Speci men Type: BLOOD SPECIMENOrdering Facility: [facility] Address: [address] [place] [address] Performed By: #### 5 8410-2 ####[facility] [id number] [place] [address] [place] MCV (RBC) [Entitic vol] 92.0 fL Normal 80.0-100.0 [facility] Comment on above: Order Comment: Speci men Type: BLOOD SPECIMENOrdering Facility: [facility] Address: [address] [place], [place] [address] Performed By: #### 5 8410-2 ####[facility] [id number] [address] [place] Nucleated RBC (Bld) [#/Vol] 0.03 10*3/uL High <0.01 [facility] Comment on above: Order Comment: Speci men Type: BLOOD SPECIMENOrdering Facility: [facility] Address: [address] [place] [address] Performed By: #### 5 8410-2 ####[facility] [id number] [place] [address] [place] Platelet mean volume (Bld) [Entitic vol] 10.2 fL Normal 9.0-12.7 [facility] Comment on above: Order Comment: Speci men Type: BLOOD SPECIMENOrdering Facility: [facility] Address: [address] [place], [place] [address] Performed By: #### 5 8410-2 ####[facility] [id number] [place] [address] [place] Platelets (Bld) [#/Vol] 175 10*3/uL Normal 150-400 [facility] Comment on above: Order Comment: Speci men Type: BLOOD SPECIMENOrdering Facility: [facility] Address: [address] [place], [place] [address] Performed By: #### 5 8410-2 ####[facility] [id number] [place] [address] [place] RBC (Bld) [#/Vol] 4.52 10*6/uL Normal 4.20-6.00 [facility] Comment on above: Order Comment: Speci men Type: BLOOD SPECIMENOrdering Facility: [facility] Address: [address] [place], [place] [address] Performed By: #### 5 8410-2 ####[facility] [id number] [place] [address] [place] WBC (Bld) [#/Vol] 10.86 10*3/uL Normal 3.70-11.00 [facility] Comment on above: Order Comment: Speci men Type: BLOOD SPECIMENOrdering Facility: [facility] Address: [address] [place], [place] [address] Performed By: #### 5 8410-2 ####[facility] [id number] [place] [address] [place] CNOVon 07-21-2022 CNOV Normal [facility] OPL94tr 09-25-2021 ECG01 Normal [facility] Magnesium SerPl-mCncon 09-25 Magnesium [Mass/Vol] 2.2 mg/dL Normal 1.7-2.3 [facility] Comment on above: Order Comment: Aaliyah gibson Type: BLOOD SPECIMENOrdering Facility: [facility] Address: [address] [place] [address] Performed By: #### 1 9123-9, 77119-6 ####[facility] [id number] [place] [address] [place] POTASSIUM BLDon 09-25-2021 Potassium [Moles/Vol] 4.5 mmol/L Normal 3.7-5.1 [facility] Comment on above: Order Comment: Aaliyah gibson Type: BLOOD SPECIMENOrdering Facility: [facility] Address: [address] [place] [address] Performed By: #### K 1 ####[facility] [id number] [place] [address] [place] PT EDon 09-25-2021 PT ED Normal [facility] PT panel Coag (PPP)on 2021 INR Coag (PPP) [Relative time] 1.2 {INR} Normal 0.9-1.3 [facility] Comment on above: Order Comment: Aaliyah gibson Type: BLOOD SPECIMENOrdering Facility: [facility] Address: [address] [place] [address] Result Comment: Contsanza min K Antagonist (VKA) Therapeutic Range: INR 2 to 3 (Target INR of 2.5)Note: For patients treated with VKA drugs, such as warfarin, the [place] [employer] 2012 Guideline recommends a therapeutic INR range of 2 to 3 (target INR of 2.5). This recommendation includes high-risk patients with antiphospholipid syndrome with previous arterial or venous thromboembolism, current-generation mechanical or bioprosthetic aortic heart valve replacement.Note: Patients with mechanical aortic valve replacement and additional risk factors for thromboembolic events (atrial fibrillation, previous thromboembolism, LV dysfunction, hypercoagulable conditions) or an older generation mechanical AVR (i.e., ball in-Cage) or any mechanical MVR should have a INR therapeutic range of 2.5 to 3.5 (target INR of 3).Lars GH, et al. Chest 2012, 141:7S-47SCaitie RA, et al. [facility] 2017, 70: 252-289 Performed By: #### 3 4528-0 ####[facility] [id number] [place] [address] [place] PT Coag (PPP) [Time] 12.7 s Normal 9.7-13.0 [facility] Comment on above: Order Comment: Speci men Type: BLOOD SPECIMENOrdering Facility: [facility] Address: [address] [place] [address] Performed By: #### 3 4528-0 ####[facility] [id number] [place] [address] [place] TEEon 09-25-2021 LISA Normal [facility] Basic metabolic 2000 panelon 09-24-2021 Anion gap [Moles/Vol] 12 mmol/L Normal 9-18 [facility] Comment on above: Order Comment: Speci men Type: BLOOD SPECIMENOrdering Facility: [facility] Address: [address] [place] [address] Performed By: #### 1 9123-9, 93218-9 ####[facility] [id number] [place] [address] [place] Calcium [Mass/Vol] 9.0 mg/dL Normal 8.5-10.2 [facility] Comment on above: Order Comment: Speci men Type: BLOOD SPECIMENOrdering Facility: [facility] Address: [address] [place] [address] Performed By: #### 1 9123-9, 85422-9 ####[facility] [id number] [place] [address] [place] Chloride [Moles/Vol] 100 mmol/L Normal 97-105 [facility] Comment on above: Order Comment: Speci men Type: BLOOD SPECIMENOrdering Facility: [facility] Address: [address] [place] [address] Performed By: #### 1 9123-9, 37053-6 ####[facility] [id number] [address] [place] CO2 [Moles/Vol] 29 mmol/L Normal 22-30 [facility] Comment on above: Order Comment: Speci men Type: BLOOD SPECIMENOrdering Facility: [facility] Address: [address] [place] [address] Performed By: #### 1 9123-9, 55411-0 ####[facility] [id number] [address] [place] [facility] Creatinine [Mass/Vol] 1.08 mg/dL Normal 0.73-1.22 [facility] Comment on above: Order Comment: Speci men Type: BLOOD SPECIMENOrdering Facility: [facility] Address: [address] [place] [address] Performed By: #### 1 9123-9, 43395-3 ####[facility] [id number] [address] [facility] ESTIMATED GLOMERULAR FILTRATION RATE 80 mL/min/1.73m??? Normal >=60 [facility] Comment on above: Order Comment: Speci men Type: BLOOD SPECIMENOrdering Facility: [facility] Address: [address] [place] [address] Result Comment: Laurita mated Glomerular Filtration Rate (eGFR) is calculated using the 2020 CKD-EPI creatinine equation. This equation utilizes serum creatinine, sex, and age as parameters. The creatinine assay has traceable calibration to isotope dilution-mass spectrometry. Refer to KDIGO guidelines for clinical interpretation. In patients with unstable renal function, e.g. those with acute kidney injury, the eGFR may not accurately reflect actual GFR. Performed By: #### 1 9123-9, 78258-4 ####[facility] [id number] [place] [address] [place] Glucose [Mass/Vol] 150 mg/dL High 74-99 [facility] Comment on above: Order Comment: Speci men Type: BLOOD SPECIMENOrdering Facility: [facility] Address: [address] [place] [address] Result Comment: The [place] [employer] (ADA) provides guidance for cutoff values for fasting glucose and random glucose. The ADA defines fasting as no caloric intake for at least 8 hours. Fasting plasma glucose results between 100 to 125 mg/dL indicate increased risk for diabetes (prediabetes).Fasting plasma glucose results greater than or equal to 126 mg/dL meet the criteria for diagnosis of diabetes. In the absence of unequivocal hyperglycemia, results should be confirmed by repeat testing. In a patient with classic symptoms of hyperglycemia or hyperglycemic crisis, random plasma glucose results greater than or equal to 200 mg/dL meet the criteria for diagnosis of diabetes.Reference: Standards of Medical Care in Diabetes 2016, [place] [employer]. Diabetes Care. 2016.39(Suppl 1). Performed By: #### 1 9123-9, 06927-4 ####[facility] [id number] [place] [address] [place] Potassium [Moles/Vol] 3.5 mmol/L Low 3.7-5.1 [facility] Comment on above: Order Comment: Ronyi men Type: BLOOD SPECIMENOrdering Facility: [facility] Address: [address] [id number] Performed By: #### 1 9123-9, 18308-9 ####[facility] [id number] [place] [address] [place] Sodium [Moles/Vol] 141 mmol/L Normal 136-144 [facility] Comment on above: Order Comment: Ronyi men Type: BLOOD SPECIMENOrdering Facility: [facility] Address: [address] [place], [place] [address] Performed By: #### 1 9123-9, 77599-7 ####[facility] [id number] [place] [address] [place] Urea nitrogen [Mass/Vol] 22 mg/dL Normal 9-24 [facility] Comment on above: Order Comment: Speci men Type: BLOOD SPECIMENOrdering Facility: [facility] Address: [address] [place], [place] [address] Performed By: #### 1 9123-9, 37218-4 ####[facility] [id number] [place] [address] [place] CBC panel Auto (Bld)on 09-24 Erythrocyte distribution width (RBC) [Ratio] 17.2 % High 11.5-15.0 [facility] Comment on above: Order Comment: Speci men Type: BLOOD SPECIMENOrdering Facility: [facility] Address: [address] [place], [place] [address] Performed By: #### 5 8410-2 ####[facility] [id number] [place] [address] [place] Hematocrit (Bld) [Volume fraction] 42.3 % Normal 39.0-51.0 [facility] Comment on above: Order Comment: Speci men Type: BLOOD SPECIMENOrdering Facility: [facility] Address: [address] [place], [place] [address] Performed By: #### 5 8410-2 ####[facility] [id number] [place] [address] [place] Hemoglobin (Bld) [Mass/Vol] 13.6 g/dL Normal 13.0-17.0 [facility] Comment on above: Order Comment: Speci men Type: BLOOD SPECIMENOrdering Facility: [facility] Address: [address] [place], [place] [address] Performed By: #### 5 8410-2 ####[facility] [id number] [address] STATES [facility] MCH (RBC) [Entitic mass] 30.0 pg Normal 26.0-34.0 [facility] Comment on above: Order Comment: Speci men Type: BLOOD SPECIMENOrdering Facility: [facility] Address: [address] [place], [place] [address] Performed By: #### 5 8410-2 ####[facility] [id number] [address] [place] MCHC (RBC) [Mass/Vol] 32.2 g/dL Normal 30.5-36.0 [facility] Comment on above: Order Comment: Speci men Type: BLOOD SPECIMENOrdering Facility: [facility] Address: [address] [place], [place] [address] Performed By: #### 5 8410-2 ####[facility] [id number] [address] [place] MCV (RBC) [Entitic vol] 93.4 fL Normal 80.0-100.0 [facility] Comment on above: Order Comment: Speci men Type: BLOOD SPECIMENOrdering Facility: [facility] Address: [address] [place], [place] [address] Performed By: #### 5 8410-2 ####[facility] [id number] [address] Nucleated RBC (Bld) [#/Vol] 10*3/uL Normal <0.01 [facility] Comment on above: Order Comment: Speci men Type: BLOOD SPECIMENOrdering Facility: [facility] Address: [address] [place], [place] [address] Performed By: #### 5 8410-2 ####[facility] [id number] [place] [address] [place] Platelet mean volume (Bld) [Entitic vol] 10.1 fL Normal 9.0-12.7 [facility] Comment on above: Order Comment: Speci men Type: BLOOD SPECIMENOrdering Facility: [facility] Address: [address] [place], [place] [address] Performed By: #### 5 8410-2 ####[facility] [id number] [place] [address] [place] Platelets (Bld) [#/Vol] 186 10*3/uL Normal 150-400 [facility] Comment on above: Order Comment: Speci men Type: BLOOD SPECIMENOrdering Facility: [facility] Address: [address] [place], [place] [address] Performed By: #### 5 8410-2 ####[facility] [id number] [place] [address] [place] RBC (Bld) [#/Vol] 4.53 10*6/uL Normal 4.20-6.00 [facility] Comment on above: Order Comment: Speci men Type: BLOOD SPECIMENOrdering Facility: [facility] Address: [address] [place], [place] [address] Performed By: #### 5 8410-2 ####[facility] [id number] [place] [address] [place] WBC (Bld) [#/Vol] 9.42 10*3/uL Normal 3.70-11.00 [facility] Comment on above: Order Comment: Speci men Type: BLOOD SPECIMENOrdering Facility: [facility] Address: [address] [place], [place] [address] Performed By: #### 5 8410-2 ####[facility] [id number] [place] [address] [place] Magnesium SerPl-mCncon 09-24 Magnesium [Mass/Vol] 2.1 mg/dL Normal 1.7-2.3 [facility] Comment on above: Order Comment: Aaliyah gibson Type: BLOOD SPECIMENOrdering Facility: [facility] Address: [address] [place] [address] Performed By: #### 1 9123-9, 72802-0 ####[facility] [id number] [place] [address] [place] POTASSIUM BLDon 09-24-2021 Potassium [Moles/Vol] 3.7 mmol/L Normal 3.7-5.1 [facility] Comment on above: Order Comment: Aaliyah gibson Type: BLOOD SPECIMENOrdering Facility: [facility] Address: [address] [place] [address] Performed By: #### K 1 ####[facility] [id number] [place] [address] [place] PT EDon 09-24-2021 PT ED Normal [facility] PT panel Coag (PPP)on 2021 INR Coag (PPP) [Relative time] 1.2 {INR} Normal 0.9-1.3 [facility] Comment on above: Order Comment: Aaliyah gibson Type: BLOOD SPECIMENOrdering Facility: [facility] Address: [address] [place] [address] Result Comment: Constanza min K Antagonist (VKA) Therapeutic Range: INR 2 to 3 (Target INR of 2.5)Note: For patients treated with VKA drugs, such as warfarin, the [place] [employer] 2012 Guideline recommends a therapeutic INR range of 2 to 3 (target INR of 2.5). This recommendation includes high-risk patients with antiphospholipid syndrome with previous arterial or venous thromboembolism, current-generation mechanical or bioprosthetic aortic heart valve replacement.Note: Patients with mechanical aortic valve replacement and additional risk factors for thromboembolic events (atrial fibrillation, previous thromboembolism, LV dysfunction, hypercoagulable conditions) or an older generation mechanical AVR (i.e., ball in-Cage) or any mechanical MVR should have a INR therapeutic range of 2.5 to 3.5 (target INR of 3).Lars GH, et al. Chest 2012, 141:7S-47SNishimura RA, et al. [facility] 2017, 70: 252-289 Performed By: #### 3 4528-0 ####[facility] [id number] [place] [address] [place] PT Coag (PPP) [Time] 12.3 s Normal 9.7-13.0 [facility] Comment on above: Order Comment: Speci men Type: BLOOD SPECIMENOrdering Facility: [facility] Address: [address] [place] [address] Performed By: #### 3 4528-0 ####[facility] [id number] [place] [address] [place] PTT, ANTICOAGULANT THERAPYon 09-24-2021 aPTT Coag (PPP) [Time] 34.3 s High 23.0-32.4 [facility] Comment on above: Order Comment: Speci men Type: BLOOD SPECIMENOrdering Facility: [facility] Address: [address] [place] [address] Performed By: #### P TTAC ####[facility] [id number] [place] [address] [place] aPTT Coag (PPP) [Time] 53.2 s High 23.0-32.4 [facility] Comment on above: Order Comment: Speci men Type: BLOOD SPECIMENOrdering Facility: [facility] Address: [address] [place] [address] Performed By: #### P TTAC ####[facility] [id number] [place] [address] [place] Basic metabolic 2000 panelon 09-23-2021 Anion gap [Moles/Vol] 9 mmol/L Normal 9-18 [facility] Comment on above: Order Comment: Speci men Type: BLOOD SPECIMENOrdering Facility: [facility] Address: [address] [place], [place] [address] Performed By: #### 3 016-3, 12795-8, 19660-6, ####[facility] [id number] [address] [address] [place] Calcium [Mass/Vol] 9.1 mg/dL Normal 8.5-10.2 [facility] Comment on above: Order Comment: Speci men Type: BLOOD SPECIMENOrdering Facility: [facility] Address: [address] [place] [address] Performed By: #### 3 016-3, 67256-4, 87584-7, ####[facility] [id number] [place] [address] [place] Chloride [Moles/Vol] 100 mmol/L Normal 97-105 [facility] Comment on above: Order Comment: Speci men Type: BLOOD SPECIMENOrdering Facility: [facility] Address: [address] [place] [address] Performed By: #### 3 016-3, 87787-4, 09866-2, ####[facility] [id number] [place] [address] [place] CO2 [Moles/Vol] 32 mmol/L High 22-30 [facility] Comment on above: Order Comment: Speci men Type: BLOOD SPECIMENOrdering Facility: [facility] Address: [address] [place], [place] [address] Performed By: #### 3 016-3, 01821-3, 83096-0, ####[facility] [id number] [address] [address] [place] Creatinine [Mass/Vol] 1.20 mg/dL Normal 0.73-1.22 [facility] Comment on above: Order Comment: Aaliyah gibson Type: BLOOD SPECIMENOrdering Facility: [facility] Address: [address] [phone] Performed By: #### 3 016-3, 27136-5, 06261-8, ####[facility] [id number] [address] [place] ESTIMATED GLOMERULAR FILTRATION RATE 71 mL/min/1.73m??? Normal >=60 [facility] Comment on above: Order Comment: Aaliyah gibson Type: BLOOD SPECIMENOrdering Facility: [facility] Address: [address] [place], [place] [phone] Result Comment: Laurita mated Glomerular Filtration Rate (eGFR) is calculated using the 2020 CKD-EPI creatinine equation. This equation utilizes serum creatinine, sex, and age as parameters. The creatinine assay has traceable calibration to isotope dilution-mass spectrometry. Refer to KDIGO guidelines for clinical interpretation. In patients with unstable renal function, e.g. those with acute kidney injury, the eGFR may not accurately reflect actual GFR. Performed By: #### 3 016-3, 04071-4, 10085-0, ####[facility] [id number] [place] [address] [place] Glucose [Mass/Vol] 133 mg/dL High 74-99 [facility] Comment on above: Order Comment: Aaliyah gibson Type: BLOOD SPECIMENOrdering Facility: [facility] Address: [address] [place], [place] [phone] Result Comment: The [place] Diabetes [employer] (ADA) provides guidance for cutoff values for fasting glucose and random glucose. The ADA defines fasting as no caloric intake for at least 8 hours. Fasting plasma glucose results between 100 to 125 mg/dL indicate increased risk for diabetes (prediabetes).Fasting plasma glucose results greater than or equal to 126 mg/dL meet the criteria for diagnosis of diabetes. In the absence of unequivocal hyperglycemia, results should be confirmed by repeat testing. In a patient with classic symptoms of hyperglycemia or hyperglycemic crisis, random plasma glucose results greater than or equal to 200 mg/dL meet the criteria for diagnosis of diabetes.Reference: Standards of Medical Care in Diabetes 2016, [place] [employer]. Diabetes Care. 2016.39(Suppl 1). Performed By: #### 3 016-3, 82900-0, 55472-3, ####[facility] [id number] [address] [address] [place] Potassium [Moles/Vol] 3.1 mmol/L Low 3.7-5.1 [facility] Comment on above: Order Comment: Speci men Type: BLOOD SPECIMENOrdering Facility: [facility] Address: [address] [place] [address] Performed By: #### 3 016-3, 76576-3, 31650-7, ####[facility] [id number] [place] [address] [place] Sodium [Moles/Vol] 141 mmol/L Normal 136-144 [facility] Comment on above: Order Comment: Speci men Type: BLOOD SPECIMENOrdering Facility: [facility] Address: [address] [place] [address] Performed By: #### 3 016-3, 19638-2, 64273-0, ####[facility] [id number] [place] [address] [place] Urea nitrogen [Mass/Vol] 22 mg/dL Normal 9-24 [facility] Comment on above: Order Comment: Speci men Type: BLOOD SPECIMENOrdering Facility: [facility] Address: [address] [place], [place] [address] Performed By: #### 3 016-3, 08022-9, 71229-1, ####[facility] [id number] [address] [address] [place] CASE MGT INIT ASSESon 2021 CASE MGT INIT ASSES Normal [facility] CBC W Auto Differential pane l (Bld)on 09-23-2021 Basophils (Bld) [#/Vol] 10*3/uL Normal <0.11 [facility] Comment on above: Order Comment: Speci men Type: BLOOD SPECIMENOrdering Facility: [facility] Address: [address] [place] [address] Performed By: #### 5 7021-8 ####[facility] [id number] [facility] [address] [place] Basophils/100 WBC (Bld) 0.1 % Normal [facility] Comment on above: Order Comment: Speci men Type: BLOOD SPECIMENOrdering Facility: [facility] Address: [address] [place] [address] Performed By: #### 5 7021-8 ####[facility] [id number] [facility] [place] [address] [place] Differential cell count method Nom (Bld) Auto Normal [facility] Comment on above: Order Comment: Speci men Type: BLOOD SPECIMENOrdering Facility: [facility] Address: [address] [place], [place] [address] Performed By: #### 5 7021-8 ####[facility] [id number] [place] [address] [place] Eosinophils (Bld) [#/Vol] 10*3/uL Normal <0.46 [facility] Comment on above: Order Comment: Speci men Type: BLOOD SPECIMENOrdering Facility: [facility] Address: [address] [place], [place] [address] Performed By: #### 5 7021-8 ####[facility] [id number] [place] [address] [place] Eosinophils/100 WBC (Bld) 0.0 % Normal [facility] Comment on above: Order Comment: Speci men Type: BLOOD SPECIMENOrdering Facility: [facility] Address: [address] [place], [place] [address] Performed By: #### 5 7021-8 ####[facility] [id number] [place] [address] [place] Erythrocyte distribution width (RBC) [Ratio] 17.2 % High 11.5-15.0 [facility] Comment on above: Order Comment: Speci men Type: BLOOD SPECIMENOrdering Facility: [facility] Address: [address] [place], [place] [address] Performed By: #### 5 7021-8 ####[facility] [id number] [place] [address] [place] Hematocrit (Bld) [Volume fraction] 39.3 % Normal 39.0-51.0 [facility] Comment on above: Order Comment: Speci men Type: BLOOD SPECIMENOrdering Facility: [facility] Address: [address] [place], [place] [address] Performed By: #### 5 7021-8 ####[facility] [id number] [place] [address] [place] Hemoglobin (Bld) [Mass/Vol] 12.7 g/dL Low 13.0-17.0 [facility] Comment on above: Order Comment: Speci men Type: BLOOD SPECIMENOrdering Facility: [facility] Address: [address] [place], [place] [address] Performed By: #### 5 7021-8 ####[facility] [id number] [place] [address] [place] IMMATURE GRAN % 0.7 % Normal [facility] Comment on above: Order Comment: Speci men Type: BLOOD SPECIMENOrdering Facility: [facility] Address: [address] [place], [place] [address] Performed By: #### 5 7021-8 ####[facility] [id number] [place] [address] [place] IMMATURE GRAN ABS 0.06 k/uL Normal <0.10 [facility] Comment on above: Order Comment: Speci men Type: BLOOD SPECIMENOrdering Facility: [facility] Address: [address] [place] [address] Performed By: #### 5 7021-8 ####[facility] [id number] [place] [address] [place] Lymphocytes (Bld) [#/Vol] 1.69 10*3/uL Normal 1.00-4.00 [facility] Comment on above: Order Comment: Speci men Type: BLOOD SPECIMENOrdering Facility: [facility] Address: [address] [place] [address] Performed By: #### 5 7021-8 ####[facility] [id number] [address] [place] [facility] Lymphocytes/100 WBC (Bld) 18.7 % Normal [facility] Comment on above: Order Comment: Speci men Type: BLOOD SPECIMENOrdering Facility: [facility] Address: [address] [place] [address] Performed By: #### 5 7021-8 ####[facility] [id number] [place] [address] [place] MCH (RBC) [Entitic mass] 30.2 pg Normal 26.0-34.0 [facility] Comment on above: Order Comment: Speci men Type: BLOOD SPECIMENOrdering Facility: [facility] Address: [address] [place], [place] [address] Performed By: #### 5 7021-8 ####[facility] [id number] [address] [place] MCHC (RBC) [Mass/Vol] 32.3 g/dL Normal 30.5-36.0 [facility] Comment on above: Order Comment: Speci men Type: BLOOD SPECIMENOrdering Facility: [facility] Address: [address] [place], [place] [address] Performed By: #### 5 7021-8 ####[facility] [id number] [place] [address] [place] MCV (RBC) [Entitic vol] 93.3 fL Normal 80.0-100.0 [facility] Comment on above: Order Comment: Speci men Type: BLOOD SPECIMENOrdering Facility: [facility] Address: [address] [place], [place] [address] Performed By: #### 5 7021-8 ####[facility] [id number] [place] [address] [place] Monocytes (Bld) [#/Vol] 0.62 10*3/uL Normal <0.87 [facility] Comment on above: Order Comment: Speci men Type: BLOOD SPECIMENOrdering Facility: [facility] Address: [address] [place], [place] [address] Performed By: #### 5 7021-8 ####[facility] [id number] [address] [place] Monocytes/100 WBC (Bld) 6.8 % Normal [facility] Comment on above: Order Comment: Speci men Type: BLOOD SPECIMENOrdering Facility: [facility] Address: [address] [place], [place] [address] Performed By: #### 5 7021-8 ####[facility] [id number] [place] [address] [place] Neutrophils (Bld) [#/Vol] 6.68 10*3/uL Normal 1.45-7.50 [facility] Comment on above: Order Comment: Speci men Type: BLOOD SPECIMENOrdering Facility: [facility] Address: [address] [place], [place] [address] Performed By: #### 5 7021-8 ####[facility] [id number] [address] [place] [facility] Neutrophils/100 WBC (Bld) 73.7 % Normal [facility] Comment on above: Order Comment: Speci men Type: BLOOD SPECIMENOrdering Facility: [facility] Address: [address] [place], [place] [address] Performed By: #### 5 7021-8 ####[facility] [id number] [place] [address] [place] Nucleated RBC (Bld) [#/Vol] 10*3/uL Normal <0.01 [facility] Comment on above: Order Comment: Speci men Type: BLOOD SPECIMENOrdering Facility: [facility] Address: [address] [place], [place] [address] Performed By: #### 5 7021-8 ####[facility] [id number] [address] [place] Nucleated RBC/100 WBC (Bld) [Ratio] 0.0 /100 WBC Normal [facility] Comment on above: Order Comment: Speci men Type: BLOOD SPECIMENOrdering Facility: [facility] Address: [address] [place], [place] [address] Performed By: #### 5 7021-8 ####[facility] [id number] [place] [address] [place] Platelet mean volume (Bld) [Entitic vol] 10.3 fL Normal 9.0-12.7 [facility] Comment on above: Order Comment: Speci men Type: BLOOD SPECIMENOrdering Facility: [facility] Address: [address] [place], [place] [address] Performed By: #### 5 7021-8 ####[facility] [id number] [place] [address] [place] Platelets (Bld) [#/Vol] 178 10*3/uL Normal 150-400 [facility] Comment on above: Order Comment: Speci men Type: BLOOD SPECIMENOrdering Facility: [facility] Address: [address] [place], [place] [address] Performed By: #### 5 7021-8 ####[facility] [id number] [place] [address] [place] RBC (Bld) [#/Vol] 4.21 10*6/uL Normal 4.20-6.00 [facility] Comment on above: Order Comment: Speci men Type: BLOOD SPECIMENOrdering Facility: [facility] Address: [address] [place] [address] Performed By: #### 5 7021-8 ####[facility] [id number] [place] [address] [place] WBC (Bld) [#/Vol] 9.06 10*3/uL Normal 3.70-11.00 [facility] Comment on above: Order Comment: Speci men Type: BLOOD SPECIMENOrdering Facility: [facility] Address: [address] [place], [place] [address] Performed By: #### 5 7021-8 ####[facility] [id number] [place] [address] [place] CBC panel Auto (Bld)on 09-23 Erythrocyte distribution width (RBC) [Ratio] 17.1 % High 11.5-15.0 [facility] Comment on above: Order Comment: Speci men Type: BLOOD SPECIMENOrdering Facility: [facility] Address: [address] [place], [place] [address] Performed By: #### 5 8410-2 ####[facility] [id number] [place] [address] [place] Hematocrit (Bld) [Volume fraction] 41.2 % Normal 39.0-51.0 [facility] Comment on above: Order Comment: Speci men Type: BLOOD SPECIMENOrdering Facility: [facility] Address: [address] [place] [address] Performed By: #### 5 8410-2 ####[facility] [id number] [place] [address] [place] Hemoglobin (Bld) [Mass/Vol] 13.3 g/dL Normal 13.0-17.0 [facility] Comment on above: Order Comment: Speci men Type: BLOOD SPECIMENOrdering Facility: [facility] Address: [address] [place] [address] Performed By: #### 5 8410-2 ####[facility] [id number] [place] [address] [place] MCH (RBC) [Entitic mass] 30.4 pg Normal 26.0-34.0 [facility] Comment on above: Order Comment: Speci men Type: BLOOD SPECIMENOrdering Facility: [facility] Address: [address] [place] [address] Performed By: #### 5 8410-2 ####[facility] [id number] [place] [address] [place] MCHC (RBC) [Mass/Vol] 32.3 g/dL Normal 30.5-36.0 [facility] Comment on above: Order Comment: Speci men Type: BLOOD SPECIMENOrdering Facility: [facility] Address: [address] [place], [place] [address] Performed By: #### 5 8410-2 ####[facility] [id number] [place] [address] [place] MCV (RBC) [Entitic vol] 94.1 fL Normal 80.0-100.0 [facility] Comment on above: Order Comment: Speci men Type: BLOOD SPECIMENOrdering Facility: [facility] Address: [address] [place] [address] Performed By: #### 5 8410-2 ####[facility] [id number] [place] [address] [place] Nucleated RBC (Bld) [#/Vol] 10*3/uL Normal <0.01 [facility] Comment on above: Order Comment: Speci men Type: BLOOD SPECIMENOrdering Facility: [facility] Address: [address] [place], [place] [address] Performed By: #### 5 8410-2 ####[facility] [id number] [place] [address] [place] Platelet mean volume (Bld) [Entitic vol] 10.0 fL Normal 9.0-12.7 [facility] Comment on above: Order Comment: Speci men Type: BLOOD SPECIMENOrdering Facility: [facility] Address: [address] [place], [place] [address] Performed By: #### 5 8410-2 ####[facility] [id number] [place] [address] [place] Platelets (Bld) [#/Vol] 186 10*3/uL Normal 150-400 [facility] Comment on above: Order Comment: Speci men Type: BLOOD SPECIMENOrdering Facility: [facility] Address: [address] [place] [address] Performed By: #### 5 8410-2 ####[facility] [id number] [place] [address] [place] RBC (Bld) [#/Vol] 4.38 10*6/uL Normal 4.20-6.00 [facility] Comment on above: Order Comment: Speci men Type: BLOOD SPECIMENOrdering Facility: [facility] Address: [address] [place], [place] [address] Performed By: #### 5 8410-2 ####[facility] [id number] [place] [address] [place] WBC (Bld) [#/Vol] 8.98 10*3/uL Normal 3.70-11.00 [facility] Comment on above: Order Comment: Speci men Type: BLOOD SPECIMENOrdering Facility: [facility] Address: [address] [place] [address] Performed By: #### 5 8410-2 ####[facility] [id number] [place] [address] [place] CNOVon 09-23-2021 CNOV Normal [facility] Comprehensive metabolic 2000 panelon 09-23-2021 Albumin [Mass/Vol] 3.6 g/dL Low 3.9-4.9 [facility] Comment on above: Order Comment: Speci men Type: BLOOD SPECIMENOrdering Facility: [facility] Address: [address] [place], [place] [address] Performed By: #### 2 4323-8, 13577-5, 97512-2 ####[facility] [id number] [place] [address] [place] ALP [Catalytic activity/Vol] 93 U/L Normal 38-113 [facility] Comment on above: Order Comment: Speci men Type: BLOOD SPECIMENOrdering Facility: [facility] Address: [address] [place] [address] Performed By: #### 2 4323-8, 33641-6, 58760-3 ####[facility] [id number] [place] [id number] [place] ALT [Catalytic activity/Vol] 112 U/L High 10-54 [facility] Comment on above: Order Comment: Speci men Type: BLOOD SPECIMENOrdering Facility: [facility] Address: [address] [place], [place] [address] Performed By: #### 2 4323-8, 70192-4, ####[facility] [id number] [place] [address] [place] Anion gap [Moles/Vol] 10 mmol/L Normal 9-18 [facility] Comment on above: Order Comment: Speci men Type: BLOOD SPECIMENOrdering Facility: [facility] Address: [address] [place], [place] [address] Performed By: #### 2 4323-8, 60448-0, ####[facility] [id number] [place] [address] [place] AST [Catalytic activity/Vol] 52 U/L High 14-40 [facility] Comment on above: Order Comment: Speci men Type: BLOOD SPECIMENOrdering Facility: [facility] Address: [address] [place], [place] [address] Performed By: #### 2 4323-8, 68832-5, ####[facility] [id number] [place] [address] [place] Bilirubin [Mass/Vol] 0.4 mg/dL Normal 0.2-1.3 [facility] Comment on above: Order Comment: Speci men Type: BLOOD SPECIMENOrdering Facility: [facility] Address: [address] [place], [place] [address] Performed By: #### 2 4323-8, 52957-8, ####[facility] [id number] [address] [address] [place] Calcium [Mass/Vol] 8.8 mg/dL Normal 8.5-10.2 [facility] Comment on above: Order Comment: Speci men Type: BLOOD SPECIMENOrdering Facility: [facility] Address: [address] [place], [place] [address] Performed By: #### 2 4323-8, 42433-7, ####[facility] [id number] [place] [id number] [place] Chloride [Moles/Vol] 101 mmol/L Normal 97-105 [facility] Comment on above: Order Comment: Speci men Type: BLOOD SPECIMENOrdering Facility: [facility] Address: [address] [place] [address] Performed By: #### 2 4323-8, 34768-3, ####[facility] [id number] [place] [address] [place] CO2 [Moles/Vol] 31 mmol/L High 22-30 [facility] Comment on above: Order Comment: Speci men Type: BLOOD SPECIMENOrdering Facility: [facility] Address: [address] [place] [address] Performed By: #### 2 4323-8, 68684-9, ####[facility] [id number] [place] [address] [place] Creatinine [Mass/Vol] 1.24 mg/dL High 0.73-1.22 [facility] Comment on above: Order Comment: Speci men Type: BLOOD SPECIMENOrdering Facility: [facility] Address: [address] [place] [address] Performed By: #### 2 4323-8, 55671-3, ####[facility] [id number] [place] [address] [place] ESTIMATED GLOMERULAR FILTRATION RATE 68 mL/min/1.73m??? Normal >=60 [facility] Comment on above: Order Comment: Speci men Type: BLOOD SPECIMENOrdering Facility: [facility] Address: [address] [place], [place] [address] Result Comment: Laurita mated Glomerular Filtration Rate (eGFR) is calculated using the 2020 CKD-EPI creatinine equation. This equation utilizes serum creatinine, sex, and age as parameters. The creatinine assay has traceable calibration to isotope dilution-mass spectrometry. Refer to KDIGO guidelines for clinical interpretation. In patients with unstable renal function, e.g. those with acute kidney injury, the eGFR may not accurately reflect actual GFR. Performed By: #### 2 4323-8, 41374-1, ####[facility] [id number] [address] [address] [place] Glucose [Mass/Vol] 176 mg/dL High 74-99 [facility] Comment on above: Order Comment: Aaliyah gibson Type: BLOOD SPECIMENOrdering Facility: [facility] Address: [address] [place] [address] Result Comment: The [place] [employer] (ADA) provides guidance for cutoff values for fasting glucose and random glucose. The ADA defines fasting as no caloric intake for at least 8 hours. Fasting plasma glucose results between 100 to 125 mg/dL indicate increased risk for diabetes (prediabetes).Fasting plasma glucose results greater than or equal to 126 mg/dL meet the criteria for diagnosis of diabetes. In the absence of unequivocal hyperglycemia, results should be confirmed by repeat testing. In a patient with classic symptoms of hyperglycemia or hyperglycemic crisis, random plasma glucose results greater than or equal to 200 mg/dL meet the criteria for diagnosis of diabetes.Reference: Standards of Medical Care in Diabetes 2016, [place] [employer]. Diabetes Care. 2016.39(Suppl 1). Performed By: #### 2 4323-8, 71081-4, ####[facility] [id number] [place] [id number] [place] Potassium [Moles/Vol] 3.2 mmol/L Low 3.7-5.1 [facility] Comment on above: Order Comment: Aaliyah gibson Type: BLOOD SPECIMENOrdering Facility: [facility] Address: [address] [place] [address] Performed By: #### 2 4323-8, 10786-6, ####[facility] [id number] [place] [id number] [place] Protein [Mass/Vol] 6.0 g/dL Low 6.3-8.0 [facility] Comment on above: Order Comment: Speci men Type: BLOOD SPECIMENOrdering Facility: [facility] Address: [address] [place] [address] Performed By: #### 2 4323-8, 47139-6, 75865-5 ####[facility] [id number] [place] [address] [place] Sodium [Moles/Vol] 142 mmol/L Normal 136-144 [facility] Comment on above: Order Comment: Speci men Type: BLOOD SPECIMENOrdering Facility: [facility] Address: [address] [place] [address] Performed By: #### 2 4323-8, 69578-8, 23413-2 ####[facility] [id number] [place] [address] [place] Urea nitrogen [Mass/Vol] 24 mg/dL Normal 9-24 [facility] Comment on above: Order Comment: Speci men Type: BLOOD SPECIMENOrdering Facility: [facility] Address: [address] [place] [address] Performed By: #### 2 4323-8, 73854-8, 22494-4 ####[facility] [id number] [place] [address] [place] ECG COMPLETEon 09-23-2021 ECG COMPLETE Normal [facility] Lipid 1996 panelon 2 Cholesterol [Mass/Vol] 152 mg/dL Normal <200 [facility] Comment on above: Order Comment: Speci men Type: BLOOD SPECIMENOrdering Facility: [facility] Address: [address] [place], [place] [address] Result Comment: <200 mg/dL, Desirable 200-239 mg/dL, Borderline high>239 mg/dL, High Performed By: #### 3 016-3, 36363-2, 46433-6, ####[facility] [id number] [place] [address] [place] Cholesterol in HDL [Mass/Vol] 55 mg/dL Normal >39 [facility] Comment on above: Order Comment: Speci men Type: BLOOD SPECIMENOrdering Facility: [facility] Address: [address] [place] [address] Result Comment: 40-5 9 mg/dL, Acceptable>59 mg/dL, High: Negative risk factor for coronary heart disease<40 mg/dL, Low: Positive risk factor for coronary heart disease Performed By: #### 3 016-3, 45231-0, 04309-0, ####[facility] [id number] [address] [place] Cholesterol in LDL [Mass/Vol] 87 mg/dL Normal <100 [facility] Comment on above: Order Comment: Speci men Type: BLOOD SPECIMENOrdering Facility: [facility] Address: [address] [place] [address] Result Comment: <100 mg/dL, Optimal 100-129 mg/dL, Near optimal/above optimal 130-159 mg/dL, Borderline high 160-189 mg/dL, High>189 mg/dL, Very highSecondary prevention optimal LDL Cholesterol levels are recommended to be < 70 mg/dL Performed By: #### 3 016-3, 72539-8, 56368-3, ####[facility] [id number] [place] [address] [place] Cholesterol in LDL/Cholesterol in HDL [Mass ratio] 1.58 {ratio} Normal <2.54 [facility] Comment on above: Order Comment: Speci men Type: BLOOD SPECIMENOrdering Facility: [facility] Address: [address] [place] [address] Result Comment: Refe rence:1. National Cholesterol Education Program ATP III Guideline At-A-Glance Quick Desk Reference: National Heart, Lung, and Blood [place]. National Institutes of Health. 2001: NIH Publication No. 01-3305.2. An International Atherosclerosis Society position paper: global recommendations for the management of dyslipidemia: executive summary, Atherosclerosis. 2014: 232(2):410-413. Performed By: #### 3 016-3, 17443-8, 85936-6, ####[facility] [id number] [address] [address] [place] Cholesterol in VLDL [Mass/Vol] 10 mg/dL Normal <30 [facility] Comment on above: Order Comment: Speci men Type: BLOOD SPECIMENOrdering Facility: [facility] Address: [address] [place] [address] Performed By: #### 3 016-3, 34459-7, 81661-2, ####[facility] [id number] [place] [address] [place] Cholesterol non HDL [Mass/Vol] 97 mg/dL Normal <130 [facility] Comment on above: Order Comment: Speci men Type: BLOOD SPECIMENOrdering Facility: [facility] Address: [address] [place] [address] Result Comment: <130 mg/dL, Optimal 130-159 mg/dL, Near optimal/above optimal 160-189 mg/dL, Borderline high 190-219 mg/dL, High>219 mg/dL, Very highSecondary prevention optimal non HDL Cholesterol levels are recommended to be <100 mg/dL Performed By: #### 3 016-3, 84631-8, 53604-3, ####[facility] [id number] [place] [id number] [place] Cholesterol.total/Urvashi sterol in HDL [Mass ratio] 2.76 {ratio} Normal <5.10 [facility] Comment on above: Order Comment: Speci men Type: BLOOD SPECIMENOrdering Facility: [facility] Address: [address] [place], [place] [phone] Performed By: #### 3 016-3, 01671-7, 94795-9, ####[facility] [id number] [place] [id number] [place] FASTING TIME 9 hrs Normal [facility] Comment on above: Order Comment: Speci men Type: BLOOD SPECIMENOrdering Facility: [facility] Address: [address] [place], [place] [address] Performed By: #### 3 016-3, 74827-9, 82298-4, ####[facility] [id number] [place] [address] [place] Triglyceride [Mass/Vol] 51 mg/dL Normal <150 [facility] Comment on above: Order Comment: Speci men Type: BLOOD SPECIMENOrdering Facility: [facility] Address: [address] [place], [place] [address] Result Comment: <150 mg/dL, Normal 150-199 mg/dL, Borderline high 200-499 mg/dL, High>499 mg/dL, Very high Performed By: #### 3 016-3, 57745-3, 38590-8, ####[facility] [id number] [place] [address] [place] Magn[facility] Magnesium [Mass/Vol] 2.0 mg/dL Normal 1.7-2.3 [facility] Comment on above: Order Comment: Speci men Type: BLOOD SPECIMENOrdering Facility: [facility] Address: [address] [place] [address] Performed By: #### 3 016-3, 67941-1, 17017-3, ####[facility] [id number] [place] [id number] [place] Magnesium [Mass/Vol] 2.1 mg/dL Normal 1.7-2.3 [facility] Comment on above: Order Comment: Speci men Type: BLOOD SPECIMENOrdering Facility: [facility] Address: [address] [place], [place] [address] Performed By: #### 2 4323-8, 15503-5, 80892-5 ####[facility] [id number] [place] [address] [place] [facility] Natriuretic peptide.B prohormone N-Terminal [Mass/Vol] 1946 pg/mL High <125 [facility] Comment on above: Order Comment: Speci men Type: BLOOD SPECIMENOrdering Facility: [facility] Address: [address] [place] [address] Performed By: #### 2 4323-8, 94016-9, ####[facility] [id number] [place] [address] [place] POTASSIUM BLDon 09-23-2021 Potassium [Moles/Vol] 3.4 mmol/L Low 3.7-5.1 [facility] Comment on above: Order Comment: Speci men Type: BLOOD SPECIMENOrdering Facility: [facility] Address: [address] [place] [address] Performed By: #### K 1 ####[facility] [id number] [place] [address] [place] Potassium [Moles/Vol] 3.5 mmol/L Low 3.7-5.1 [facility] Comment on above: Order Comment: Speci men Type: BLOOD SPECIMENOrdering Facility: [facility] Address: [address] [place], [place] [address] Performed By: #### K 1 ####[facility] [id number] [place] [address] [place] PT panel Coag (PPP)on 2021 INR Coag (PPP) [Relative time] 1.2 {INR} Normal 0.9-1.3 [facility] Comment on above: Order Comment: Aaliyah gibson Type: BLOOD SPECIMENOrdering Facility: [facility] Address: [address] [place] [phone] Result Comment: Constanza min K Antagonist (VKA) Therapeutic Range: INR 2 to 3 (Target INR of 2.5)Note: For patients treated with VKA drugs, such as warfarin, the [place] [employer] 2012 Guideline recommends a therapeutic INR range of 2 to 3 (target INR of 2.5). This recommendation includes high-risk patients with antiphospholipid syndrome with previous arterial or venous thromboembolism, current-generation mechanical or bioprosthetic aortic heart valve replacement.Note: Patients with mechanical aortic valve replacement and additional risk factors for thromboembolic events (atrial fibrillation, previous thromboembolism, LV dysfunction, hypercoagulable conditions) or an older generation mechanical AVR (i.e., ball in-Cage) or any mechanical MVR should have a INR therapeutic range of 2.5 to 3.5 (target INR of 3).Lars GH, et al. Chest 2012, 141:7S-47SNishnini RA, et al. [facility] 2017, 70: 252-289 Performed By: #### P TTAC, 22844-6 ####[facility] [id number] [place] [address] [place] PT Coag (PPP) [Time] 12.3 s Normal 9.7-13.0 [facility] Comment on above: Order Comment: Aaliyah gibson Type: BLOOD SPECIMENOrdering Facility: [facility] Address: [address] [place] [address] Performed By: #### P TTAC, 50401-2 ####[facility] [id number] [place] [address] [place] INR Coag (PPP) [Relative time] 1.1 {INR} Normal 0.9-1.3 [facility] Comment on above: Order Comment: Aaliyah gibson Type: BLOOD SPECIMENOrdering Facility: [facility] Address: [address] [place], [place] [address] Result Comment: Constanza min K Antagonist (VKA) Therapeutic Range: INR 2 to 3 (Target INR of 2.5)Note: For patients treated with VKA drugs, such as warfarin, the [place] [employer] 2012 Guideline recommends a therapeutic INR range of 2 to 3 (target INR of 2.5). This recommendation includes high-risk patients with antiphospholipid syndrome with previous arterial or venous thromboembolism, current-generation mechanical or bioprosthetic aortic heart valve replacement.Note: Patients with mechanical aortic valve replacement and additional risk factors for thromboembolic events (atrial fibrillation, previous thromboembolism, LV dysfunction, hypercoagulable conditions) or an older generation mechanical AVR (i.e., ball in-Cage) or any mechanical MVR should have a INR therapeutic range of 2.5 to 3.5 (target INR of 3).Lars JAMISON, et al. Chest 2012, 141:7S-47SNishnini RA, et al. [facility] 2017, 70: 252-289 Performed By: #### 3 4528-0, 86076-1 ####[facility] [id number] [place] [address] [place] PT Coag (PPP) [Time] 11.9 s Normal 9.7-13.0 [facility] Comment on above: Order Comment: Speci men Type: BLOOD SPECIMENOrdering Facility: [facility] Address: [address] [place] [address] Performed By: #### 3 4528-0, 36894-2 ####[facility] [id number] [place] [address] [place] PTT, ANTICOAGULANT THERAPYon 09-23-2021 aPTT Coag (PPP) [Time] s High 23.0-32.4 [facility] Comment on above: Order Comment: Speci men Type: BLOOD SPECIMENOrdering Facility: [facility] Address: [address] [place], [place] [address] Result Comment: Samp le checked for clot.Result rechecked. Performed By: #### P TTAC ####[facility] [id number] [address] [place] aPTT Coag (PPP) [Time] s High 23.0-32.4 [facility] Comment on above: Order Comment: Speci men Type: BLOOD SPECIMENOrdering Facility: [facility] Address: [address] [place] [address] Result Comment: Samp le checked for clot.Result rechecked. Performed By: #### P TTAC ####[facility] [id number] [place] [address] [place] aPTT Coag (PPP) [Time] 73.9 s High 23.0-32.4 [facility] Comment on above: Order Comment: Speci men Type: BLOOD SPECIMENOrdering Facility: [facility] Address: [address] [place] [address] Performed By: #### P TTAC, 27596-4 ####[facility] [id number] [place] [address] [place] SARS-CoV-2 RNA Resp Ql SANDOVAL+p robeon 09-23-2021 SARS-CoV-2 (COVID-19) RNA SANDOVAL+probe Ql (Resp) COVID 19 RESULT: SARS-CoV-2 (Agent of COVID-19) Not Detected by RT-PCR or equivalent method. This test has been authorized by FDA under an Emergency Use Authorization (EUA). Normal [facility] Comment on above: Performed By: #### 9 4500-6 ####[facility] [id number] [address] [place] TSH SerPl-aCncon 09-23-2021 TSH Qn 1.870 m[IU]/L Normal 0.270-4.20 0 [facility] Comment on above: Order Comment: Speci men Type: BLOOD SPECIMENOrdering Facility: [facility] Address: [address] [place], [place] [address] Performed By: #### 3 016-3, 99894-6, 85754-7, 99339-2 ####[facility] [id number] [place] [address] [place] aPTT PPPon 09-23-2021 aPTT Coag (PPP) [Time] 25.4 s Normal 23.0-32.4 [facility] Comment on above: Order Comment: Speci men Type: BLOOD SPECIMENOrdering Facility: [facility] Address: [address] [place] [address] Performed By: #### 3 4528-0, 29574-0 ####[facility] [id number] [place] [address] [place] CNOVon 09-22-2021 CNOV Normal [facility] HISTORY PHYSICALon HISTORY PHYSICAL Normal [facility] NURSING PROGon 09-22-2021 NURSING PROG Normal [facility] XR CHEST 1V FRONTAL PORTon 0 09-22-2021 XR CHEST 1V FRONTAL PORT Normal [facility] CNPNon 09-19-2021 CNPN Normal [facility] CNPNon 09-16-2021 CNPN Normal [facility] CBC W Auto Differential pane l (Bld)on 09-11-2021 Basophils (Bld) [#/Vol] 10*3/uL Normal <0.11 [facility] Comment on above: Order Comment: Speci men Type: BLOOD SPECIMENOrdering Facility: [facility] Address: [address] [place] [address] Performed By: #### 5 7021-8 ####[facility] [id number] [address] [place] Basophils/100 WBC (Bld) 0.3 % Normal [facility] Comment on above: Order Comment: Speci men Type: BLOOD SPECIMENOrdering Facility: [facility] Address: [address] [place], [place] [address] Performed By: #### 5 7021-8 ####[facility] [id number] [place] [address] [place] Differential cell count method Nom (Bld) Auto Normal [facility] Comment on above: Order Comment: Speci men Type: BLOOD SPECIMENOrdering Facility: [facility] Address: [address] [place], [place] [address] Performed By: #### 5 7021-8 ####[facility] [id number] [place] [address] [place] Eosinophils (Bld) [#/Vol] 0.03 10*3/uL Normal <0.46 [facility] Comment on above: Order Comment: Speci men Type: BLOOD SPECIMENOrdering Facility: [facility] Address: [address] [place] [address] Performed By: #### 5 7021-8 ####[facility] [id number] [place] [address] [place] Eosinophils/100 WBC (Bld) 0.5 % Normal [facility] Comment on above: Order Comment: Speci men Type: BLOOD SPECIMENOrdering Facility: [facility] Address: [address] [place], [place] [address] Performed By: #### 5 7021-8 ####[facility] [id number] [place] [address] [place] Erythrocyte distribution width (RBC) [Ratio] 15.5 % High 11.5-15.0 [facility] Comment on above: Order Comment: Speci men Type: BLOOD SPECIMENOrdering Facility: [facility] Address: [address] [place], [place] [address] Performed By: #### 5 7021-8 ####[facility] [id number] [place] [address] [place] Hematocrit (Bld) [Volume fraction] 42.0 % Normal 39.0-51.0 [facility] Comment on above: Order Comment: Speci men Type: BLOOD SPECIMENOrdering Facility: [facility] Address: [address] [place] [address] Performed By: #### 5 7021-8 ####[facility] [id number] [place] [address] [place] Hemoglobin (Bld) [Mass/Vol] 13.5 g/dL Normal 13.0-17.0 [facility] Comment on above: Order Comment: Speci men Type: BLOOD SPECIMENOrdering Facility: [facility] Address: [address] [place] [address] Performed By: #### 5 7021-8 ####[facility] [id number] [place] [address] [facility] IMMATURE GRAN % 0.3 % Normal [facility] Comment on above: Order Comment: Speci men Type: BLOOD SPECIMENOrdering Facility: [facility] Address: [address] [place] [address] Performed By: #### 5 7021-8 ####[facility] [id number] [place] [address] [facility] IMMATURE GRAN ABS <0.03 Normal <0.10 [facility] Comment on above: Order Comment: Speci men Type: BLOOD SPECIMENOrdering Facility: [facility] Address: [address] [place] [address] Performed By: #### 5 7021-8 ####[facility] [id number] [place] [address] [place] Lymphocytes (Bld) [#/Vol] 1.12 10*3/uL Normal 1.00-4.00 [facility] Comment on above: Order Comment: Speci men Type: BLOOD SPECIMENOrdering Facility: [facility] Address: [address] [place], [place] [address] Performed By: #### 5 7021-8 ####[facility] [id number] [place] [address] Lymphocytes/100 WBC (Bld) 17.2 % Normal [facility] Comment on above: Order Comment: Speci men Type: BLOOD SPECIMENOrdering Facility: [facility] Address: [address] [place], [place] [address] Performed By: #### 5 7021-8 ####[facility] [id number] [place] [address] [place] MCH (RBC) [Entitic mass] 29.6 pg Normal 26.0-34.0 [facility] Comment on above: Order Comment: Speci men Type: BLOOD SPECIMENOrdering Facility: [facility] Address: [address] [place], [place] [address] Performed By: #### 5 7021-8 ####[facility] [id number] [place] [address] [place] MCHC (RBC) [Mass/Vol] 32.1 g/dL Normal 30.5-36.0 [facility] Comment on above: Order Comment: Speci men Type: BLOOD SPECIMENOrdering Facility: [facility] Address: [address] [place], [place] [address] Performed By: #### 5 7021-8 ####[facility] [id number] [address] [place] MCV (RBC) [Entitic vol] 92.1 fL Normal 80.0-100.0 [facility] Comment on above: Order Comment: Speci men Type: BLOOD SPECIMENOrdering Facility: [facility] Address: [address] [place], [place] [address] Performed By: #### 5 7021-8 ####[facility] [id number] [place] [address] [place] Monocytes (Bld) [#/Vol] 0.53 10*3/uL Normal <0.87 [facility] Comment on above: Order Comment: Speci men Type: BLOOD SPECIMENOrdering Facility: [facility] Address: [address] [place] [address] Performed By: #### 5 7021-8 ####[facility] [id number] [place] [address] [place] Monocytes/100 WBC (Bld) 8.1 % Normal [facility] Comment on above: Order Comment: Speci men Type: BLOOD SPECIMENOrdering Facility: [facility] Address: [address] [place] [address] Performed By: #### 5 7021-8 ####[facility] [id number] [place] [address] [place] Neutrophils (Bld) [#/Vol] 4.81 10*3/uL Normal 1.45-7.50 [facility] Comment on above: Order Comment: Speci men Type: BLOOD SPECIMENOrdering Facility: [facility] Address: [address] [place] [address] Performed By: #### 5 7021-8 ####[facility] [id number] [place] [address] [place] Neutrophils/100 WBC (Bld) 73.6 % Normal [facility] Comment on above: Order Comment: Speci men Type: BLOOD SPECIMENOrdering Facility: [facility] Address: [address] [place], [place] [address] Performed By: #### 5 7021-8 ####[facility] [id number] [place] [address] [place] Nucleated RBC (Bld) [#/Vol] 10*3/uL Normal <0.01 [facility] Comment on above: Order Comment: Speci men Type: BLOOD SPECIMENOrdering Facility: [facility] Address: [address] [place], [place] [address] Performed By: #### 5 7021-8 ####[facility] [id number] [place] [address] [place] Nucleated RBC/100 WBC (Bld) [Ratio] 0.0 /100 WBC Normal [facility] Comment on above: Order Comment: Speci men Type: BLOOD SPECIMENOrdering Facility: [facility] Address: [address] [place], [place] [address] Performed By: #### 5 7021-8 ####[facility] [id number] [place] [address] [place] Platelet mean volume (Bld) [Entitic vol] 9.7 fL Normal 9.0-12.7 [facility] Comment on above: Order Comment: Speci men Type: BLOOD SPECIMENOrdering Facility: [facility] Address: [address] [place], [place] [address] Performed By: #### 5 7021-8 ####[facility] [id number] [place] [address] [place] Platelets (Bld) [#/Vol] 267 10*3/uL Normal 150-400 [facility] Comment on above: Order Comment: Speci men Type: BLOOD SPECIMENOrdering Facility: [facility] Address: [address] [place], [place] [address] Performed By: #### 5 7021-8 ####[facility] [id number] [place] [address] [place] RBC (Bld) [#/Vol] 4.56 10*6/uL Normal 4.20-6.00 [facility] Comment on above: Order Comment: Speci men Type: BLOOD SPECIMENOrdering Facility: [facility] Address: [address] [place] [address] Performed By: #### 5 7021-8 ####[facility] [id number] [place] [address] [place] WBC (Bld) [#/Vol] 6.53 10*3/uL Normal 3.70-11.00 [facility] Comment on above: Order Comment: Speci men Type: BLOOD SPECIMENOrdering Facility: [facility] Address: [address] [place], [place] [address] Performed By: #### 5 7021-8 ####[facility] [id number] [place] [address] [place] CNNURSEon 09-11-2021 CNNURSE Normal [facility] CNOVSPon 09-11-2021 CNOVSP Normal [facility] Comprehensive metabolic 2000 panelon 09-11-2021 Albumin [Mass/Vol] 4.1 g/dL Normal 3.9-4.9 [facility] Comment on above: Order Comment: Speci men Type: BLOOD SPECIMENOrdering Facility: [facility] Address: [address] [place], [place] [address] Performed By: #### 3 084-1, 05783-4, ####[facility] [id number] [place] [address] [place] ALP [Catalytic activity/Vol] 80 U/L Normal 38-113 [facility] Comment on above: Order Comment: Speci men Type: BLOOD SPECIMENOrdering Facility: [facility] Address: [address] [place], [place] [address] Performed By: #### 3 084-1, 76650-6, 85784-5 ####[facility] [id number] [place] [address] [place] ALT [Catalytic activity/Vol] 82 U/L High 10-54 [facility] Comment on above: Order Comment: Speci men Type: BLOOD SPECIMENOrdering Facility: [facility] Address: [address] [place] [address] Performed By: #### 3 084-1, 06064-4, ####[facility] [id number] [place] [address] [place] Anion gap [Moles/Vol] 12 mmol/L Normal 9-18 [facility] Comment on above: Order Comment: Speci men Type: BLOOD SPECIMENOrdering Facility: [facility] Address: [address] [place] [address] Performed By: #### 3 084-1, 74284-7, ####[facility] [id number] [place] [address] [place] AST [Catalytic activity/Vol] 58 U/L High 14-40 [facility] Comment on above: Order Comment: Speci men Type: BLOOD SPECIMENOrdering Facility: [facility] Address: [address] [place], [place] [address] Performed By: #### 3 084-1, 40580-6, ####[facility] [id number] [place] [address] [place] Bilirubin [Mass/Vol] 0.5 mg/dL Normal 0.2-1.3 [facility] Comment on above: Order Comment: Speci men Type: BLOOD SPECIMENOrdering Facility: [facility] Address: [address] [place] [address] Performed By: #### 3 084-1, 32927-7, ####[facility] [id number] [place] [address] [place] Calcium [Mass/Vol] 9.4 mg/dL Normal 8.5-10.2 [facility] Comment on above: Order Comment: Speci men Type: BLOOD SPECIMENOrdering Facility: [facility] Address: [address] [place], [place] [address] Performed By: #### 3 084-1, 30887-0, ####[facility] [id number] [place] [address] [place] Chloride [Moles/Vol] 103 mmol/L Normal 97-105 [facility] Comment on above: Order Comment: Speci men Type: BLOOD SPECIMENOrdering Facility: [facility] Address: [address] [place] [address] Performed By: #### 3 084-1, 93584-2, ####[facility] [id number] [place] [address] [place] CO2 [Moles/Vol] 29 mmol/L Normal 22-30 [facility] Comment on above: Order Comment: Speci men Type: BLOOD SPECIMENOrdering Facility: [facility] Address: [address] [place] [address] Performed By: #### 3 084-1, 82158-8, ####[facility] [id number] [place] [address] [place] Creatinine [Mass/Vol] 1.18 mg/dL Normal 0.73-1.22 [facility] Comment on above: Order Comment: Speci men Type: BLOOD SPECIMENOrdering Facility: [facility] Address: [address] [place], [place] [address] Performed By: #### 3 084-1, 83459-0, ####[facility] [id number] [place] [address] [place] ESTIMATED GLOMERULAR FILTRATION RATE 72 mL/min/1.73m??? Normal >=60 [facility] Comment on above: Order Comment: Speci men Type: BLOOD SPECIMENOrdering Facility: [facility] Address: [address] [place], [place] [address] Result Comment: Laurita mated Glomerular Filtration Rate (eGFR) is calculated using the 2020 CKD-EPI creatinine equation. This equation utilizes serum creatinine, sex, and age as parameters. The creatinine assay has traceable calibration to isotope dilution-mass spectrometry. Refer to KDIGO guidelines for clinical interpretation. In patients with unstable renal function, e.g. those with acute kidney injury, the eGFR may not accurately reflect actual GFR. Performed By: #### 3 084-1, 45566-9, ####[facility] [id number] [place] [address] [place] Glucose [Mass/Vol] 130 mg/dL High 74-99 [facility] Comment on above: Order Comment: Aaliyah gibson Type: BLOOD SPECIMENOrdering Facility: [facility] Address: [address] [place] [address] Result Comment: The [place] [employer] (ADA) provides guidance for cutoff values for fasting glucose and random glucose. The ADA defines fasting as no caloric intake for at least 8 hours. Fasting plasma glucose results between 100 to 125 mg/dL indicate increased risk for diabetes (prediabetes).Fasting plasma glucose results greater than or equal to 126 mg/dL meet the criteria for diagnosis of diabetes. In the absence of unequivocal hyperglycemia, results should be confirmed by repeat testing. In a patient with classic symptoms of hyperglycemia or hyperglycemic crisis, random plasma glucose results greater than or equal to 200 mg/dL meet the criteria for diagnosis of diabetes.Reference: Standards of Medical Care in Diabetes 2016, [place] [employer]. Diabetes Care. 2016.39(Suppl 1). Performed By: #### 3 084-1, 74556-0, ####[facility] [id number] [place] [address] [place] Potassium [Moles/Vol] 3.3 mmol/L Low 3.7-5.1 [facility] Comment on above: Order Comment: Aaliyah gibson Type: BLOOD SPECIMENOrdering Facility: [facility] Address: [address] [id number] Performed By: #### 3 084-1, 79474-3, ####[facility] [id number] [place] [address] [place] Protein [Mass/Vol] 6.9 g/dL Normal 6.3-8.0 [facility] Comment on above: Order Comment: Speci men Type: BLOOD SPECIMENOrdering Facility: [facility] Address: [address] [place], [place] [address] Performed By: #### 3 084-1, 00044-3, ####[facility] [id number] [place] [address] [place] Sodium [Moles/Vol] 144 mmol/L Normal 136-144 [facility] Comment on above: Order Comment: Speci men Type: BLOOD SPECIMENOrdering Facility: [facility] Address: [address] [place] [address] Performed By: #### 3 084-1, 24892-4, ####[facility] [id number] [place] [address] [place] Urea nitrogen [Mass/Vol] 19 mg/dL Normal 9-24 [facility] Comment on above: Order Comment: Speci men Type: BLOOD SPECIMENOrdering Facility: [facility] Address: [address] [place], [place] [address] Performed By: #### 3 084-1, 45532-5, ####[facility] [id number] [place] [address] [place] LDH SerPl-cCncon 09-11-2021 LDH [Catalytic activity/Vol] 297 U/L High 135-225 [facility] Comment on above: Order Comment: Speci men Type: BLOOD SPECIMENOrdering Facility: [facility] Address: [address] [place] [address] Performed By: #### 2 532-0 ####[facility] [id number] [address] [place] Magnesium SerPl-mCncon 09-11 Magnesium [Mass/Vol] 2.1 mg/dL Normal 1.7-2.3 [facility] Comment on above: Order Comment: Speci paige Type: BLOOD SPECIMENOrdering Facility: [facility] Address: [address] [place] [address] Performed By: #### 3 084-1, 80801-1, 42541-9 ####[facility] [id number] [address] PT panel Coag (PPP)on 2021 INR Coag (PPP) [Relative time] 1.1 {INR} Normal 0.9-1.3 [facility] Comment on above: Order Comment: Speci paige Type: BLOOD SPECIMENOrdering Facility: [facility] Address: [address] [place] [address] Result Comment: Constanza min K Antagonist (VKA) Therapeutic Range: INR 2 to 3 (Target INR of 2.5)Note: For patients treated with VKA drugs, such as warfarin, the [place] [employer] 2012 Guideline recommends a therapeutic INR range of 2 to 3 (target INR of 2.5). This recommendation includes high-risk patients with antiphospholipid syndrome with previous arterial or venous thromboembolism, current-generation mechanical or bioprosthetic aortic heart valve replacement.Note: Patients with mechanical aortic valve replacement and additional risk factors for thromboembolic events (atrial fibrillation, previous thromboembolism, LV dysfunction, hypercoagulable conditions) or an older generation mechanical AVR (i.e., ball in-Cage) or any mechanical MVR should have a INR therapeutic range of 2.5 to 3.5 (target INR of 3).Lars GH, et al. Chest 2012, 141:7S-47SCaitie RA et al. [facility] 2017, 70: 252-289 Performed By: #### 3 4528-0, 82335-8 ####[facility] [id number] [place] [address] [place] PT Coag (PPP) [Time] 11.3 s Normal 9.7-13.0 [facility] Comment on above: Order Comment: Speci men Type: BLOOD SPECIMENOrdering Facility: [facility] Address: [address] [place] [address] Performed By: #### 3 4528-0, 95965-5 ####[facility] [id number] [place] [address] [place] Phosphate SerPl-mCncon 09-11 Phosphate [Mass/Vol] 3.5 mg/dL Normal 2.7-4.8 [facility] Comment on above: Order Comment: Speci men Type: BLOOD SPECIMENOrdering Facility: [facility] Address: [address] [place] [address] Performed By: #### 2 777-1 ####[facility] [id number] [place] [address] [place] Urate SerPl-mCncon Urate [Mass/Vol] 9.2 mg/dL High 4.0-8.1 [facility] Comment on above: Order Comment: Speci men Type: BLOOD SPECIMENOrdering Facility: [facility] Address: [address] [place] [address] Performed By: #### 3 084-1, 93178-3, 77575-9 ####[facility] [id number] [place] [address] [place] aPTT PPPon 09-11-2021 aPTT Coag (PPP) [Time] 28.1 s Normal 23.0-32.4 [facility] Comment on above: Order Comment: Speci men Type: BLOOD SPECIMENOrdering Facility: [facility] Address: [address] [place], [place] [address] Performed By: #### 3 4528-0, 50206-5 ####[facility] [id number] [place] [address] [place] CNPNon 09-05-2021 CNPN Normal [facility] CBC panel Auto (Bld)on 09-04 Erythrocyte distribution width (RBC) [Ratio] 15.2 % High 11.5-15.0 [facility] Comment on above: Order Comment: Speci men Type: BLOOD SPECIMENOrdering Facility: [facility] Address: [address] [place], [place] [address] Performed By: #### 5 8410-2 ####[facility] [id number] [address] [place] Hematocrit (Bld) [Volume fraction] 40.7 % Normal 39.0-51.0 [facility] Comment on above: Order Comment: Speci men Type: BLOOD SPECIMENOrdering Facility: [facility] Address: [address] [place], [place] [address] Performed By: #### 5 8410-2 ####[facility] [id number] [place] [address] [place] Hemoglobin (Bld) [Mass/Vol] 13.1 g/dL Normal 13.0-17.0 [facility] Comment on above: Order Comment: Speci men Type: BLOOD SPECIMENOrdering Facility: [facility] Address: [address] [place] [address] Performed By: #### 5 8410-2 ####[facility] [id number] [place] [address] [place] MCH (RBC) [Entitic mass] 29.5 pg Normal 26.0-34.0 [facility] Comment on above: Order Comment: Speci men Type: BLOOD SPECIMENOrdering Facility: [facility] Address: [address] [place], [place] [address] Performed By: #### 5 8410-2 ####[facility] [id number] [place] [address] [place] MCHC (RBC) [Mass/Vol] 32.2 g/dL Normal 30.5-36.0 [facility] Comment on above: Order Comment: Speci men Type: BLOOD SPECIMENOrdering Facility: [facility] Address: [address] [place], [place] [address] Performed By: #### 5 8410-2 ####[facility] [id number] [place] [address] [place] MCV (RBC) [Entitic vol] 91.7 fL Normal 80.0-100.0 [facility] Comment on above: Order Comment: Speci men Type: BLOOD SPECIMENOrdering Facility: [facility] Address: [address] [place] [address] Performed By: #### 5 8410-2 ####[facility] [id number] [place] [address] [place] Nucleated RBC (Bld) [#/Vol] 10*3/uL Normal <0.01 [facility] Comment on above: Order Comment: Speci men Type: BLOOD SPECIMENOrdering Facility: [facility] Address: [address] [place] [address] Performed By: #### 5 8410-2 ####[facility] [id number] [address] [place] Platelet mean volume (Bld) [Entitic vol] 10.1 fL Normal 9.0-12.7 [facility] Comment on above: Order Comment: Speci men Type: BLOOD SPECIMENOrdering Facility: [facility] Address: [address] [place], [place] [address] Performed By: #### 5 8410-2 ####[facility] [id number] [address] [id number] [address] [place] Platelets (Bld) [#/Vol] 214 10*3/uL Normal 150-400 [facility] Comment on above: Order Comment: Speci men Type: BLOOD SPECIMENOrdering Facility: [facility] Address: [address] [place], [place] [address] Performed By: #### 5 8410-2 ####[facility] [id number] [place] [address] [place] RBC (Bld) [#/Vol] 4.44 10*6/uL Normal 4.20-6.00 [facility] Comment on above: Order Comment: Speci men Type: BLOOD SPECIMENOrdering Facility: [facility] Address: [address] [place] [address] Performed By: #### 5 8410-2 ####[facility] [id number] [place] [address] [place] WBC (Bld) [#/Vol] 6.02 10*3/uL Normal 3.70-11.00 [facility] Comment on above: Order Comment: Speci men Type: BLOOD SPECIMENOrdering Facility: [facility] Address: [address] [place], [place] [address] Performed By: #### 5 8410-2 ####[facility] [id number] [place] [address] [place] CNDSon 09-04-2021 CNDS Normal [facility] CONSULTon 09-04-2021 CONSULT Normal [facility] Comprehensive metabolic 2000 panelon 09-04-2021 Albumin [Mass/Vol] 3.5 g/dL Low 3.9-4.9 [facility] Comment on above: Order Comment: Speci men Type: BLOOD SPECIMENOrdering Facility: [facility] Address: [address] [place], [place] [address] Performed By: #### 2 4323-8, 58342-9 ####[facility] [id number] [place] [address] [place] ALP [Catalytic activity/Vol] 72 U/L Normal 38-113 [facility] Comment on above: Order Comment: Speci men Type: BLOOD SPECIMENOrdering Facility: [facility] Address: [address] [place], [place] [address] Performed By: #### 2 4323-8, ####[facility] [id number] [place] [address] [place] ALT [Catalytic activity/Vol] 56 U/L High 10-54 [facility] Comment on above: Order Comment: Speci men Type: BLOOD SPECIMENOrdering Facility: [facility] Address: [address] [place] [address] Performed By: #### 2 4323-8, ####[facility] [id number] [place] [address] [place] Anion gap [Moles/Vol] 10 mmol/L Normal 9-18 [facility] Comment on above: Order Comment: Speci men Type: BLOOD SPECIMENOrdering Facility: [facility] Address: [address] [place], [place] [address] Performed By: #### 2 4323-8, ####[facility] [id number] [place] [address] [place] AST [Catalytic activity/Vol] 25 U/L Normal 14-40 [facility] Comment on above: Order Comment: Speci men Type: BLOOD SPECIMENOrdering Facility: [facility] Address: [address] [place], [place] [address] Performed By: #### 2 4323-8, ####[facility] [id number] [place] [address] [place] Bilirubin [Mass/Vol] 0.6 mg/dL Normal 0.2-1.3 [facility] Comment on above: Order Comment: Speci men Type: BLOOD SPECIMENOrdering Facility: [facility] Address: [address] [place] [address] Performed By: #### 2 4322-8, ####[facility] [id number] [facility] [address] [place] Calcium [Mass/Vol] 9.3 mg/dL Normal 8.5-10.2 [facility] Comment on above: Order Comment: Speci men Type: BLOOD SPECIMENOrdering Facility: [facility] Address: [address] [place], [place] [address] Performed By: #### 2 4322-8, ####[facility] [id number] [place] [address] [place] Chloride [Moles/Vol] 99 mmol/L Normal 97-105 [facility] Comment on above: Order Comment: Speci men Type: BLOOD SPECIMENOrdering Facility: [facility] Address: [address] [place], [place] [address] Performed By: #### 2 8, ####[facility] [id number] [place] [address] [place] CO2 [Moles/Vol] 30 mmol/L Normal 22-30 [facility] Comment on above: Order Comment: Speci men Type: BLOOD SPECIMENOrdering Facility: [facility] Address: [address] [place] [phone] Performed By: #### 2 3-8, ####[facility] [id number] [place] [address] [place] Creatinine [Mass/Vol] 1.03 mg/dL Normal 0.73-1.22 [facility] Comment on above: Order Comment: Speci men Type: BLOOD SPECIMENOrdering Facility: [facility] Address: [address] [address] Performed By: #### 2 4323-8, ####[facility] [id number] [place] [address] [place] ESTIMATED GLOMERULAR FILTRATION RATE 85 mL/min/1.73m??? Normal >=60 [facility] Comment on above: Order Comment: Aaliyah gibson Type: BLOOD SPECIMENOrdering Facility: [facility] Address: [address] [place] [address] Result Comment: Laurita mated Glomerular Filtration Rate (eGFR) is calculated using the 2020 CKD-EPI creatinine equation. This equation utilizes serum creatinine, sex, and age as parameters. The creatinine assay has traceable calibration to isotope dilution-mass spectrometry. Refer to KDIGO guidelines for clinical interpretation. In patients with unstable renal function, e.g. those with acute kidney injury, the eGFR may not accurately reflect actual GFR. Performed By: #### 2 4323-8, ####[facility] [id number] [place] [address] [place] Glucose [Mass/Vol] 192 mg/dL High 74-99 [facility] Comment on above: Order Comment: Aaliyah gibson Type: BLOOD SPECIMENOrdering Facility: [facility] Address: [address] [place] [address] Result Comment: The [place] [employer] (ADA) provides guidance for cutoff values for fasting glucose and random glucose. The ADA defines fasting as no caloric intake for at least 8 hours. Fasting plasma glucose results between 100 to 125 mg/dL indicate increased risk for diabetes (prediabetes).Fasting plasma glucose results greater than or equal to 126 mg/dL meet the criteria for diagnosis of diabetes. In the absence of unequivocal hyperglycemia, results should be confirmed by repeat testing. In a patient with classic symptoms of hyperglycemia or hyperglycemic crisis, random plasma glucose results greater than or equal to 200 mg/dL meet the criteria for diagnosis of diabetes.Reference: Standards of Medical Care in Diabetes 2016, [place] [employer]. Diabetes Care. 2016.39(Suppl 1). Performed By: #### 2 4323, ####[facility] [id number] [address] [address] [place] Potassium [Moles/Vol] 3.2 mmol/L Low 3.7-5.1 [facility] Comment on above: Order Comment: Speci men Type: BLOOD SPECIMENOrdering Facility: [facility] Address: [address] [place] [address] Performed By: #### 2 4322-10, ####[facility] [id number] [place] [id number] [place] Protein [Mass/Vol] 6.6 g/dL Normal 6.3-8.0 [facility] Comment on above: Order Comment: Speci men Type: BLOOD SPECIMENOrdering Facility: [facility] Address: [address] [place] [address] Performed By: #### 2 4322-10, ####[facility] [id number] [place] [id number] [place] Sodium [Moles/Vol] 139 mmol/L Normal 136-144 [facility] Comment on above: Order Comment: Speci men Type: BLOOD SPECIMENOrdering Facility: [facility] Address: [address] [place], [place] [address] Performed By: #### 2 4322-10, ####[facility] [id number] [address] [address] [place] Urea nitrogen [Mass/Vol] 15 mg/dL Normal 9-24 [facility] Comment on above: Order Comment: Speci men Type: BLOOD SPECIMENOrdering Facility: [facility] Address: [address] [place], [place] [phone] Performed By: #### 2 8, ####[facility] [id number] [place] [id number] [place] Magnesium SerPl-mCncon 09-04 Magnesium [Mass/Vol] 2.2 mg/dL Normal 1.7-2.3 [facility] Comment on above: Order Comment: Speci men Type: BLOOD SPECIMENOrdering Facility: [facility] Address: [address] [place] [address] Performed By: #### 2 4323-8, 79711-1 ####[facility] [id number] [place] [address] [place] PT EDon 09-04-2021 PT ED Normal [facility] CASE MANAGEMon 09-03-2021 CASE MANAGEM Normal [facility] CBC panel Auto (Bld)on 09-03 Erythrocyte distribution width (RBC) [Ratio] 15.4 % High 11.5-15.0 [facility] Comment on above: Order Comment: Speci men Type: BLOOD SPECIMENOrdering Facility: [facility] Address: [address] [place], [place] [address] Performed By: #### 5 8410-2 ####[facility] [id number] [address] [place] Hematocrit (Bld) [Volume fraction] 43.8 % Normal 39.0-51.0 [facility] Comment on above: Order Comment: Speci men Type: BLOOD SPECIMENOrdering Facility: [facility] Address: [address] [place], [place] [address] Performed By: #### 5 8410-2 ####[facility] [id number] [place] [address] [place] Hemoglobin (Bld) [Mass/Vol] 13.9 g/dL Normal 13.0-17.0 [facility] Comment on above: Order Comment: Speci men Type: BLOOD SPECIMENOrdering Facility: [facility] Address: [address] [place], [place] [address] Performed By: #### 5 8410-2 ####[facility] [id number] [place] [address] [place] [address] [facility] MCH (RBC) [Entitic mass] 29.6 pg Normal 26.0-34.0 [facility] Comment on above: Order Comment: Speci men Type: BLOOD SPECIMENOrdering Facility: [facility] Address: [address] [place] [address] Performed By: #### 5 8410-2 ####[facility] [id number] [address] [place] [facility] MCHC (RBC) [Mass/Vol] 31.7 g/dL Normal 30.5-36.0 [facility] Comment on above: Order Comment: Speci men Type: BLOOD SPECIMENOrdering Facility: [facility] Address: [address] [place] [address] Performed By: #### 5 8410-2 ####[facility] [id number] [address] [place] [facility] MCV (RBC) [Entitic vol] 93.2 fL Normal 80.0-100.0 [facility] Comment on above: Order Comment: Speci men Type: BLOOD SPECIMENOrdering Facility: [facility] Address: [address] [place], [place] [address] Performed By: #### 5 8410-2 ####[facility] [id number] [address] [place] Nucleated RBC (Bld) [#/Vol] 10*3/uL Normal <0.01 [facility] Comment on above: Order Comment: Speci men Type: BLOOD SPECIMENOrdering Facility: [facility] Address: [address] [place], [place] [address] Performed By: #### 5 8410-2 ####[facility] [id number] [address] [place] Plate[place] mean volume (Bld) [Entitic vol] 9.9 fL Normal 9.0-12.7 [facility] Comment on above: Order Comment: Speci men Type: BLOOD SPECIMENOrdering Facility: [facility] Address: [address] [place] [address] Performed By: #### 5 8410-2 ####[facility] [id number] [place] [address] [place] Platelets (Bld) [#/Vol] 212 10*3/uL Normal 150-400 [facility] Comment on above: Order Comment: Speci men Type: BLOOD SPECIMENOrdering Facility: [facility] Address: [address] [place] [address] Performed By: #### 5 8410-2 ####[facility] [id number] [place] [address] [place] RBC (Bld) [#/Vol] 4.70 10*6/uL Normal 4.20-6.00 [facility] Comment on above: Order Comment: Speci men Type: BLOOD SPECIMENOrdering Facility: [facility] Address: [address] [place], [place] [address] Performed By: #### 5 8410-2 ####[facility] [id number] [place] [address] [place] WBC (Bld) [#/Vol] 5.51 10*3/uL Normal 3.70-11.00 [facility] Comment on above: Order Comment: Speci men Type: BLOOD SPECIMENOrdering Facility: [facility] Address: [address] [place], [place] [address] Performed By: #### 5 8410-2 ####[facility] [id number] [place] [address] [place] Comprehensive metabolic 2000 panelon 09-03-2021 Albumin [Mass/Vol] 3.7 g/dL Low 3.9-4.9 [facility] Comment on above: Order Comment: Speci men Type: BLOOD SPECIMENOrdering Facility: [facility] Address: [address] [place] [address] Performed By: #### 2 4323-8, 44989-4, ####[facility] [id number] [place] [address] [place] ALP [Catalytic activity/Vol] 83 U/L Normal 38-113 [facility] Comment on above: Order Comment: Speci men Type: BLOOD SPECIMENOrdering Facility: [facility] Address: [address] [place], [place] [address] Performed By: #### 2 4323-8, 15524-2, ####[facility] [id number] [place] [address] [place] ALT [Catalytic activity/Vol] 65 U/L High 10-54 [facility] Comment on above: Order Comment: Speci men Type: BLOOD SPECIMENOrdering Facility: [facility] Address: [address] [place], [place] [address] Performed By: #### 2 4323-8, 15976-5, ####[facility] [id number] [place] [address] [place] Anion gap [Moles/Vol] 9 mmol/L Normal 9-18 [facility] Comment on above: Order Comment: Speci men Type: BLOOD SPECIMENOrdering Facility: [facility] Address: [address] [place], [place] [address] Performed By: #### 2 4323-8, 11934-1, ####[facility] [id number] [place] [id number] [place] AST [Catalytic activity/Vol] 35 U/L Normal 14-40 [facility] Comment on above: Order Comment: Speci men Type: BLOOD SPECIMENOrdering Facility: [facility] Address: [address] [place] [address] Performed By: #### 2 4323-8, 98120-4, ####[facility] [id number] [address] [address] [place] Bilirubin [Mass/Vol] 0.6 mg/dL Normal 0.2-1.3 [facility] Comment on above: Order Comment: Speci men Type: BLOOD SPECIMENOrdering Facility: [facility] Address: [address] [place], [place] [address] Performed By: #### 2 4323-8, 45302-2, ####[facility] [id number] [place] [address] [place] Calcium [Mass/Vol] 9.3 mg/dL Normal 8.5-10.2 [facility] Comment on above: Order Comment: Speci men Type: BLOOD SPECIMENOrdering Facility: [facility] Address: [address] [place], [place] [address] Performed By: #### 2 4323-8, 23207-4, ####[facility] [id number] [place] [address] [place] Chloride [Moles/Vol] 102 mmol/L Normal 97-105 [facility] Comment on above: Order Comment: Speci men Type: BLOOD SPECIMENOrdering Facility: [facility] Address: [address] [place], [place] [address] Performed By: #### 2 4323-8, 95607-0, ####[facility] [id number] [place] [id number] [place] CO2 [Moles/Vol] 32 mmol/L High 22-30 [facility] Comment on above: Order Comment: Speci men Type: BLOOD SPECIMENOrdering Facility: [facility] Address: [address] [phone] Performed By: #### 2 4323-8, 95165-2, ####[facility] [id number] [address] [address] [place] Creatinine [Mass/Vol] 1.08 mg/dL Normal 0.73-1.22 [facility] Comment on above: Order Comment: Speci men Type: BLOOD SPECIMENOrdering Facility: [facility] Address: [address] [place], [place] [address] Performed By: #### 2 4323-8, 63020-2, ####[facility] [id number] [address] [place] ESTIMATED GLOMERULAR FILTRATION RATE 80 mL/min/1.73m??? Normal >=60 [facility] Comment on above: Order Comment: Speci men Type: BLOOD SPECIMENOrdering Facility: [facility] Address: [address] [place], [place] [address] Result Comment: Laurita mated Glomerular Filtration Rate (eGFR) is calculated using the 2020 CKD-EPI creatinine equation. This equation utilizes serum creatinine, sex, and age as parameters. The creatinine assay has traceable calibration to isotope dilution-mass spectrometry. Refer to KDIGO guidelines for clinical interpretation. In patients with unstable renal function, e.g. those with acute kidney injury, the eGFR may not accurately reflect actual GFR. Performed By: #### 2 4323-8, 29803-0, ####[facility] [id number] [place] [id number] [place] Glucose [Mass/Vol] 98 mg/dL Normal 74-99 [facility] Comment on above: Order Comment: Speci men Type: BLOOD SPECIMENOrdering Facility: [facility] Address: [address] [place], [place] [address] Result Comment: The [place] [employer] (ADA) provides guidance for cutoff values for fasting glucose and random glucose. The ADA defines fasting as no caloric intake for at least 8 hours. Fasting plasma glucose results between 100 to 125 mg/dL indicate increased risk for diabetes (prediabetes).Fasting plasma glucose results greater than or equal to 126 mg/dL meet the criteria for diagnosis of diabetes. In the absence of unequivocal hyperglycemia, results should be confirmed by repeat testing. In a patient with classic symptoms of hyperglycemia or hyperglycemic crisis, random plasma glucose results greater than or equal to 200 mg/dL meet the criteria for diagnosis of diabetes.Reference: Standards of Medical Care in Diabetes 2016, [place] [employer]. Diabetes Care. 2016.39(Suppl 1). Performed By: #### 2 4323-8, 79322-4, 59923-8 ####[facility] [id number] [place] [address] [place] Potassium [Moles/Vol] 3.8 mmol/L Normal 3.7-5.1 [facility] Comment on above: Order Comment: Speci men Type: BLOOD SPECIMENOrdering Facility: [facility] Address: [address] [place], [place] [id number] Performed By: #### 2 4323-8, 16380-0, ####[facility] [id number] [place] [address] [place] Protein [Mass/Vol] 6.9 g/dL Normal 6.3-8.0 [facility] Comment on above: Order Comment: Speci men Type: BLOOD SPECIMENOrdering Facility: [facility] Address: [address] [id number] Performed By: #### 2 4323-8, 43857-3, 17629-4 ####[facility] [id number] [place] [address] [place] Sodium [Moles/Vol] 143 mmol/L Normal 136-144 [facility] Comment on above: Order Comment: Speci men Type: BLOOD SPECIMENOrdering Facility: [facility] Address: [address], [place] Performed By: #### 2 4323-8, 49237-8, 84072-6 ####[facility] [id number] [place] [id number] [place] Urea nitrogen [Mass/Vol] 16 mg/dL Normal 9-24 [facility] Comment on above: Order Comment: Speci men Type: BLOOD SPECIMENOrdering Facility: [facility] Address: [address] [place], [place] [address] Performed By: #### 2 4323-8, 86157-7, ####[facility] [id number] [place] [id number] [place] ED NOTEon 09-03-2021 ED NOTE HNO ID: [id number] Author: Cinthya Gimenez RN Service: Emergency Medicine Author Type: Registered Nurse Type: ED Notes Filed: 09/02/2021 10:46 PM Note Text: Report given to [place] LOPEZ Normal [facility] Iron and Iron binding capaci ty panelon 09-03-2021 Iron [Mass/Vol] 42 ug/dL Normal 41-186 [facility] Comment on above: Order Comment: Speci men Type: BLOOD SPECIMENOrdering Facility: [facility] Address: [address] [place] [id number] Performed By: #### 2 4323-8, 51919-1, ####[facility] [id number] [place] [id number] [place] Iron binding capacity [Mass/Vol] 261 ug/dL Normal 232-386 [facility] Comment on above: Order Comment: Speci men Type: BLOOD SPECIMENOrdering Facility: [facility] Address: [address] [place], [place] [id number] Performed By: #### 2 4323-8, 06490-8, ####[facility] [id number] [place] [id number] Iron/TIBC [Molar ratio] 16.1 % Normal 15.0-57.0 [facility] Comment on above: Order Comment: Speci men Type: BLOOD SPECIMENOrdering Facility: [facility] Address: [address] [place] [address] Performed By: #### 2 4323-8, 94504-2, 13899-9 ####[facility] [id number] [address] [place] Magnesium SerPl-mCncon 09-03 Magnesium [Mass/Vol] 2.4 mg/dL High 1.7-2.3 [facility] Comment on above: Order Comment: Speci men Type: BLOOD SPECIMENOrdering Facility: [facility] Address: [address] [place] [address] Performed By: #### 2 4323-8, 29177-9, 10121-9 ####[facility] [id number] [place] [address] [place] THERAPY NTon 09-03-2021 THERAPY NT Normal [facility] THERAPY NT Normal [facility] CBC W Auto Differential pane l (Bld)on 09-02-2021 Basophils (Bld) [#/Vol] 0.03 10*3/uL Normal <0.11 [facility] Comment on above: Order Comment: Speci men Type: BLOOD SPECIMENOrdering Facility: [facility] Address: [address] [place], [place] [address] Performed By: #### 5 7021-8 ####[facility] [id number] [address] [place] Basophils/100 WBC (Bld) 0.5 % Normal [facility] Comment on above: Order Comment: Speci men Type: BLOOD SPECIMENOrdering Facility: [facility] Address: [address] [place] [address] Performed By: #### 5 7021-8 ####[facility] [id number] [place] [address] [place] Differential cell count method Nom (Bld) Auto Normal [facility] Comment on above: Order Comment: Speci men Type: BLOOD SPECIMENOrdering Facility: [facility] Address: [address] [place] [address] Performed By: #### 5 7021-8 ####[facility] [place] [id number] [place] [address] [place] Eosinophils (Bld) [#/Vol] 10*3/uL Normal <0.46 [facility] Comment on above: Order Comment: Speci men Type: BLOOD SPECIMENOrdering Facility: [facility] Address: [address] [place] [address] Performed By: #### 5 7021-8 ####[facility] [place] [id number] [place] [address] [place] Eosinophils/100 WBC (Bld) 0.3 % Normal [facility] Comment on above: Order Comment: Speci men Type: BLOOD SPECIMENOrdering Facility: [facility] Address: [address] [place] [address] Performed By: #### 5 7021-8 ####[facility] [id number] [place] [address] [place] Erythrocyte distribution width (RBC) [Ratio] 15.2 % High 11.5-15.0 [facility] Comment on above: Order Comment: Speci men Type: BLOOD SPECIMENOrdering Facility: [facility] Address: [address] [place], [place] [address] Performed By: #### 5 7021-8 ####[facility] [id number] [place] [address] [place] Hematocrit (Bld) [Volume fraction] 40.8 % Normal 39.0-51.0 [facility] Comment on above: Order Comment: Speci men Type: BLOOD SPECIMENOrdering Facility: [facility] Address: [address] [place] [address] Performed By: #### 5 7021-8 ####[facility] [id number] [place] [address] [place] Hemoglobin (Bld) [Mass/Vol] 13.5 g/dL Normal 13.0-17.0 [facility] Comment on above: Order Comment: Speci men Type: BLOOD SPECIMENOrdering Facility: [facility] Address: [address] [place] [address] Performed By: #### 5 7021-8 ####[facility] [place] [id number] [place] [address] [facility] IMMATURE GRAN % 0.3 % Normal [facility] Comment on above: Order Comment: Speci men Type: BLOOD SPECIMENOrdering Facility: [facility] Address: [address] [place] [address] Performed By: #### 5 7021-8 ####[facility] [id number] [place] [address] IMMATURE GRAN ABS <0.03 Normal <0.10 [facility] Comment on above: Order Comment: Speci men Type: BLOOD SPECIMENOrdering Facility: [facility] Address: [address] [place], [place] [address] Performed By: #### 5 7021-8 ####[facility] [place] [id number] [place] [address] [place] Lymphocytes (Bld) [#/Vol] 1.42 10*3/uL Normal 1.00-4.00 [facility] Comment on above: Order Comment: Speci men Type: BLOOD SPECIMENOrdering Facility: [facility] Address: [address] [place], [place] [address] Performed By: #### 5 7021-8 ####[facility] [id number] [address] [place] Lymphocytes/100 WBC (Bld) 21.7 % Normal [facility] Comment on above: Order Comment: Speci men Type: BLOOD SPECIMENOrdering Facility: [facility] Address: [address] [place] [address] Performed By: #### 5 7021-8 ####[facility] [id number] [place] [address] [place] MCH (RBC) [Entitic mass] 29.8 pg Normal 26.0-34.0 [facility] Comment on above: Order Comment: Speci men Type: BLOOD SPECIMENOrdering Facility: [facility] Address: [address] [place] [address] Performed By: #### 5 7021-8 ####[facility] [place] [id number] [place] [address] [facility] MCHC (RBC) [Mass/Vol] 33.1 g/dL Normal 30.5-36.0 [facility] Comment on above: Order Comment: Speci men Type: BLOOD SPECIMENOrdering Facility: [facility] Address: [address] [place] [address] Performed By: #### 5 7021-8 ####[facility] [id number] [address] MCV (RBC) [Entitic vol] 90.1 fL Normal 80.0-100.0 [facility] Comment on above: Order Comment: Speci men Type: BLOOD SPECIMENOrdering Facility: [facility] Address: [address] [place] [address] Performed By: #### 5 7021-8 ####[facility] [id number] [place] [address] [place] Monocytes (Bld) [#/Vol] 0.42 10*3/uL Normal <0.87 [facility] Comment on above: Order Comment: Speci men Type: BLOOD SPECIMENOrdering Facility: [facility] Address: [address] [place] [address] Performed By: #### 5 7021-8 ####[facility] [id number] [place] [address] [place] Monocytes/100 WBC (Bld) 6.4 % Normal [facility] Comment on above: Order Comment: Speci men Type: BLOOD SPECIMENOrdering Facility: [facility] Address: [address] [place] [address] Performed By: #### 5 7021-8 ####[facility] [place] [id number] [place] [address] [place] Neutrophils (Bld) [#/Vol] 4.62 10*3/uL Normal 1.45-7.50 [facility] Comment on above: Order Comment: Speci men Type: BLOOD SPECIMENOrdering Facility: [facility] Address: [address] [place], [place] [address] Performed By: #### 5 7021-8 ####[facility] [id number] [address] [place] Neutrophils/100 WBC (Bld) 70.8 % Normal [facility] Comment on above: Order Comment: Speci men Type: BLOOD SPECIMENOrdering Facility: [facility] Address: [address] [place], [place] [address] Performed By: #### 5 7021-8 ####[facility] [place] [id number] [place] [address] [place] Nucleated RBC (Bld) [#/Vol] 10*3/uL Normal <0.01 [facility] Comment on above: Order Comment: Speci men Type: BLOOD SPECIMENOrdering Facility: [facility] Address: [address] [place], [place] [address] Performed By: #### 5 7021-8 ####[facility] [id number] [place] [address] [place] Nucleated RBC/100 WBC (Bld) [Ratio] 0.0 /100 WBC Normal [facility] Comment on above: Order Comment: Speci men Type: BLOOD SPECIMENOrdering Facility: [facility] Address: [address] [place], [place] [address] Performed By: #### 5 7021-8 ####[facility] [place] [id number] [place] [address] [place] Platelet mean volume (Bld) [Entitic vol] 9.8 fL Normal 9.0-12.7 [facility] Comment on above: Order Comment: Speci men Type: BLOOD SPECIMENOrdering Facility: [facility] Address: [address] [place], [place] [address] Performed By: #### 5 7021-8 ####[facility] [place] [id number] [place] [address] [place] Platelets (Bld) [#/Vol] 206 10*3/uL Normal 150-400 [facility] Comment on above: Order Comment: Speci men Type: BLOOD SPECIMENOrdering Facility: [facility] Address: [address] [place], [place] [address] Performed By: #### 5 7021-8 ####[facility] [id number] [place] [address] [place] RBC (Bld) [#/Vol] 4.53 10*6/uL Normal 4.20-6.00 [facility] Comment on above: Order Comment: Speci men Type: BLOOD SPECIMENOrdering Facility: [facility] Address: [address] [place], [place] [address] Performed By: #### 5 7021-8 ####[facility] [id number] [place] [address] [place] WBC (Bld) [#/Vol] 6.53 10*3/uL Normal 3.70-11.00 [facility] Comment on above: Order Comment: Speci men Type: BLOOD SPECIMENOrdering Facility: [facility] Address: [address] [place], [place] [address] Performed By: #### 5 7021-8 ####[facility] [id number] [place] [address] [place] CNNURSEon 09-02-2021 CNNURSE Normal [facility] CNOVSPon 09-02-2021 CNOVSP Normal [facility] CT CHEST W IVCON PEon 2021 CT CHEST W IVCON PE Normal [facility] Comprehensive metabolic 2000 panelon 09-02-2021 Albumin [Mass/Vol] 4.1 g/dL Normal 3.9-4.9 [facility] Comment on above: Order Comment: Speci men Type: BLOOD SPECIMENOrdering Facility: [facility] Address: [address] [place] [address] Performed By: #### 2 4323-8 ####[facility] [id number] [address] [place] ALP [Catalytic activity/Vol] 82 U/L Normal 38-113 [facility] Comment on above: Order Comment: Speci men Type: BLOOD SPECIMENOrdering Facility: [facility] Address: [address] [place] [address] Performed By: #### 2 4323-8 ####[facility] [id number] [place] [address] [place] ALT [Catalytic activity/Vol] 79 U/L High 10-54 [facility] Comment on above: Order Comment: Speci men Type: BLOOD SPECIMENOrdering Facility: [facility] Address: [address] [place], [place] [id number] Performed By: #### 2 4323-8 ####[facility] [id number] [place] [address] [place] Anion gap [Moles/Vol] 10 mmol/L Normal 9-18 [facility] Comment on above: Order Comment: Speci men Type: BLOOD SPECIMENOrdering Facility: [facility] Address: [address] [place], [place] [address] Performed By: #### 2 4323-8 ####[facility] [id number] [place] [address] [place] AST [Catalytic activity/Vol] 50 U/L High 14-40 [facility] Comment on above: Order Comment: Speci men Type: BLOOD SPECIMENOrdering Facility: [facility] Address: [address] [place], [place] [address] Performed By: #### 2 4323-8 ####[facility] [id number] [place] [address] [place] Bilirubin [Mass/Vol] 1.0 mg/dL Normal 0.2-1.3 [facility] Comment on above: Order Comment: Speci men Type: BLOOD SPECIMENOrdering Facility: [facility] Address: [address] [place], [place] [address] Performed By: #### 2 4323-8 ####[facility] [id number] [place] [address] [place] Calcium [Mass/Vol] 9.1 mg/dL Normal 8.5-10.2 [facility] Comment on above: Order Comment: Speci men Type: BLOOD SPECIMENOrdering Facility: [facility] Address: [address] [place], [place] [address] Performed By: #### 2 4323-8 ####[facility] [id number] [address] [facility] Chloride [Moles/Vol] 107 mmol/L High 97-105 [facility] Comment on above: Order Comment: Speci men Type: BLOOD SPECIMENOrdering Facility: [facility] Address: [address] [place] [address] Performed By: #### 2 4323-8 ####[facility] [id number] [place] [address] [place] CO2 [Moles/Vol] 25 mmol/L Normal 22-30 [facility] Comment on above: Order Comment: Speci men Type: BLOOD SPECIMENOrdering Facility: [facility] Address: [address] [place] [address] Performed By: #### 2 4323-8 ####[facility] [place] [id number] [address] [facility] Creatinine [Mass/Vol] 1.07 mg/dL Normal 0.73-1.22 [facility] Comment on above: Order Comment: Speci men Type: BLOOD SPECIMENOrdering Facility: [facility] Address: [address] [place] [address] Performed By: #### 2 4323-8 ####[facility] [id number] [address] [facility] ESTIMATED GLOMERULAR FILTRATION RATE 81 mL/min/1.73m??? Normal >=60 [facility] Comment on above: Order Comment: Speci men Type: BLOOD SPECIMENOrdering Facility: [facility] Address: [address] [place] [address] Result Comment: Laurita mated Glomerular Filtration Rate (eGFR) is calculated using the 2020 CKD-EPI creatinine equation. This equation utilizes serum creatinine, sex, and age as parameters. The creatinine assay has traceable calibration to isotope dilution-mass spectrometry. Refer to KDIGO guidelines for clinical interpretation. In patients with unstable renal function, e.g. those with acute kidney injury, the eGFR may not accurately reflect actual GFR. Performed By: #### 2 4323-8 ####[facility] [id number] [place] [address] [place] Glucose [Mass/Vol] 127 mg/dL High 74-99 [facility] Comment on above: Order Comment: Speci men Type: BLOOD SPECIMENOrdering Facility: [facility] Address: [address] [place] [address] Result Comment: The [place] [employer] (ADA) provides guidance for cutoff values for fasting glucose and random glucose. The ADA defines fasting as no caloric intake for at least 8 hours. Fasting plasma glucose results between 100 to 125 mg/dL indicate increased risk for diabetes (prediabetes).Fasting plasma glucose results greater than or equal to 126 mg/dL meet the criteria for diagnosis of diabetes. In the absence of unequivocal hyperglycemia, results should be confirmed by repeat testing. In a patient with classic symptoms of hyperglycemia or hyperglycemic crisis, random plasma glucose results greater than or equal to 200 mg/dL meet the criteria for diagnosis of diabetes.Reference: Standards of Medical Care in Diabetes 2016, [place] [employer]. Diabetes Care. 2016.39(Suppl 1). Performed By: #### 2 4323-8 ####[facility] [id number] [place] [address] [place] Potassium [Moles/Vol] 3.6 mmol/L Low 3.7-5.1 [facility] Comment on above: Order Comment: Speci men Type: BLOOD SPECIMENOrdering Facility: [facility] Address: [address] [place] [address] Performed By: #### 2 4323-8 ####[facility] [id number] [place] [address] [place] Protein [Mass/Vol] 6.8 g/dL Normal 6.3-8.0 [facility] Comment on above: Order Comment: Speci men Type: BLOOD SPECIMENOrdering Facility: [facility] Address: [address] [place] [address] Performed By: #### 2 4323-8 ####[facility] [id number] [place] [address] [place] Sodium [Moles/Vol] 142 mmol/L Normal 136-144 [facility] Comment on above: Order Comment: Speci men Type: BLOOD SPECIMENOrdering Facility: [facility] Address: [address] [place] [address] Performed By: #### 2 4323-8 ####[facility] [id number] [address] [place] Urea nitrogen [Mass/Vol] 14 mg/dL Normal 9-24 [facility] Comment on above: Order Comment: Speci men Type: BLOOD SPECIMENOrdering Facility: [facility] Address: [address] [place] [address] Performed By: #### 2 4323-8 ####[facility] [id number] [address] [place] D dimer FEU PPP-mCncon 09-02 Fibrin D-dimer FEU (PPP) [Mass/Vol] 1920 ng/mL FEU High <500 [facility] Comment on above: Order Comment: Speci men Type: BLOOD SPECIMENOrdering Facility: [facility] Address: [address] [place] [address] Performed By: #### 4 8065-7 ####[facility] [id number] [place] [address] [place] ED NOTEon 09-02-2021 ED NOTE HNO ID: [id number] Author: Lisa Bright RN Service: ? Author Type: Registered Nurse Type: ED Notes Filed: 09/02/2021 7:02 PM Note Text: Bed: Expected date: Expected time: Means of arrival: Comments: Normal [facility] ED NOTE HNO ID: [id number] Author: Luma Sanford RN Service: Emergency Medicine Author Type: Registered Nurse Type: ED Notes Filed: 09/02/2021 6:36 PM Note Text: Still no staff assigned to patient, RN to Dr Fleming to leaf size picker pt at this time. Normal [facility] ED PROV NOTEon 09-02-2021 ED PROV NOTE Normal [facility] Ferritin SerPl-mCncon 2021 Ferritin [Mass/Vol] 332.0 ng/mL Normal 30.3-565.7 [facility] Comment on above: Order Comment: Speci men Type: BLOOD SPECIMENOrdering Facility: [facility] Address: [address] [place] [address] Performed By: #### 3 034-6, 2276-4 ####[facility] [id number] [address] [place] Fibrin D-dimer FEU (PPP) [Ma ss/Vol]on 09-02-2021 D DIMER AGE-RELATED CUTOFF 570 ng/mL FEU Normal [facility] Comment on above: Order Comment: Speci men Type: BLOOD SPECIMENOrdering Facility: [facility] Address: [address] [place] [address] Performed By: #### 4 8065-7 ####[facility] [id number] [address] [place] HIGH SENSITIVITY TROPONIN To n 09-02-2021 HIGH SENSITIVITY BEAU 33 ng/L High <12 [facility] Comment on above: Order Comment: Speci men Type: BLOOD SPECIMENOrdering Facility: [facility] Address: [address] [place] [address] Result Comment: When assessing risk for acute coronary syndromes: In patients undergoing blood draw greater than or equal to 2 hours from symptom onset, with history of very low to moderate risk and non-ischemic ECG, an initial hs-Troponin T less than 12 ng/L AND a 1 hour delta hs-Troponin T less than 3 ng/L should be considered very low risk for 30 day MACE. Performed By: #### 5 5454-3, HSTNT ####[facility] [id number] [address] STATES [facility] HIGH SENSITIVITY BEAU 33 ng/L High <12 [facility] Comment on above: Order Comment: Aaliyah gibson Type: BLOOD SPECIMENOrdering Facility: [facility] Address: [address] [place] [address] Result Comment: When assessing risk for acute coronary syndromes: In patients undergoing blood draw greater than or equal to 2 hours from symptom onset, with history of very low to moderate risk and non-ischemic ECG, an initial hs-Troponin T less than 12 ng/L AND a 1 hour delta hs-Troponin T less than 3 ng/L should be considered very low risk for 30 day MACE. Performed By: #### H STNT ####[facility] [id number] [address] [facility] HISTORY PHYSICALon HISTORY PHYSICAL Normal [facility] HbA1c (Bld)on 09-02-2021 Average glucose Estimated from glycated hemoglobin (Bld) [Mass/Vol] 137 mg/dL Normal [facility] Comment on above: Order Comment: Aaliyah gibson Type: BLOOD SPECIMENOrdering Facility: [facility] Address: [address] [place] [address] Result Comment: eAG: (Estimated average glucose) is a calculated value from HgbA1c and is account maintenance representative of the average blood glucose level in the last 2-3 month period. Performed By: #### 5 5454-3, HSTNT ####[facility] [id number] [address] HbA1c (Bld) [Mass fraction] 6.4 % High 4.3-5.6 [facility] Comment on above: Order Comment: Aaliyah gibson Type: BLOOD SPECIMENOrdering Facility: [facility] Address: [address] [place] [address] Result Comment: [place] Diabetes Association guidelines indicate that patients with HgbA1c in the range 5.7-6.4% are at increased risk for development of diabetes, and intervention by lifestyle modification may be beneficial. HgbA1c greater or equal to 6.5% is considered diagnostic of diabetes. Performed By: #### 5 5454-3, HSTNT ####[facility] [id number] [place] [address] [place] LDH SerPl-cCncon 09-02-2021 LDH [Catalytic activity/Vol] 336 U/L High 135-225 [facility] Comment on above: Order Comment: Speci men Type: BLOOD SPECIMENOrdering Facility: [facility] Address: [address] [place], [place] [address] Performed By: #### 2 532-0 ####[facility] [id number] [place] [address] [place] Magnesium SerPl-ncon 09-02 Magnesium [Mass/Vol] 2.2 mg/dL Normal 1.7-2.3 [facility] Comment on above: Order Comment: Speci men Type: BLOOD SPECIMENOrdering Facility: [facility] Address: [address] [place], [place] [address] Performed By: #### 3 3762-6, 6-3, ####[facility] [id number] [address] [place] NT-proBNP SerPl-ncon 09-02 Natriuretic peptide.B prohormone N-Terminal [Mass/Vol] 3442 pg/mL High <125 [facility] Comment on above: Order Comment: Speci men Type: BLOOD SPECIMENOrdering Facility: [facility] Address: [address] [place], [place] [address] Performed By: #### 3 3762-6, 3016-3, ####[facility] [id number] [place] [address] [place] No Panel Informationon 09-02 [facility] PT panel Coag (PPP)on 2021 INR Coag (PPP) [Relative time] 1.1 {INR} Normal 0.9-1.3 [facility] Comment on above: Order Comment: Aaliyah gibson Type: BLOOD SPECIMENOrdering Facility: [facility] Address: [address] [place] [phone] Result Comment: Constanza min K Antagonist (VKA) Therapeutic Range: INR 2 to 3 (Target INR of 2.5)Note: For patients treated with VKA drugs, such as warfarin, the [place] [employer] 2012 Guideline recommends a therapeutic INR range of 2 to 3 (target INR of 2.5). This recommendation includes high-risk patients with antiphospholipid syndrome with previous arterial or venous thromboembolism, current-generation mechanical or bioprosthetic aortic heart valve replacement.Note: Patients with mechanical aortic valve replacement and additional risk factors for thromboembolic events (atrial fibrillation, previous thromboembolism, LV dysfunction, hypercoagulable conditions) or an older generation mechanical AVR (i.e., ball in-Cage) or any mechanical MVR should have a INR therapeutic range of 2.5 to 3.5 (target INR of 3).Lars JAMISON, et al. Chest 2012, 141:7S-47SNishimura RA, et al. JACC 2017, 70: 252-289 Performed By: #### 3 4528-0, 53323-8 ####[facility] [id number] [place] [address] [place] PT Coag (PPP) [Time] 12.0 s Normal 9.7-13.0 [facility] Comment on above: Order Comment: Aaliyah gibson Type: BLOOD SPECIMENOrdering Facility: [facility] Address: [address] [place] [address] Performed By: #### 3 4528-0, 99991-8 ####[facility] [id number] [place] [address] [place] SARS-CoV-2 RNA Resp Ql SANDOVAL+p robeon 09-02-2021 SARS-CoV-2 (COVID-19) RNA SANDOVAL+probe Ql (Resp) COVID 19 RESULT: SARS-CoV-2 (Agent of COVID-19) Not Detected by RT-PCR or equivalent method. This test has been authorized by FDA under an Emergency Use Authorization (EUA). Normal [facility] Comment on above: Performed By: #### 9 4500-6 ####[facility] [id number] [address] [place] TSH SerPl-aCncon 09-02-2021 TSH Qn 1.460 m[IU]/L Normal 0.270-4.20 0 [facility] Comment on above: Order Comment: Speci men Type: BLOOD SPECIMENOrdering Facility: [facility] Address: [address] [place] [address] Performed By: #### 3 3762-6, 3016-3, 82040-1 ####[facility] [id number] [address] [place] Transferrin SerPl-mCncon Transferrin [Mass/Vol] 234 mg/dL Normal 200-360 [facility] Comment on above: Order Comment: Speci men Type: BLOOD SPECIMENOrdering Facility: [facility] Address: [address] [place] [address] Performed By: #### 3 034-6, 2276-4 ####[facility] [id number] [place] [address] [place] XR CHEST 2V FRONTAL/LATon XR CHEST 2V FRONTAL/LAT Normal C [facility] aPTT PPPon 09-02-2021 aPTT Coag (PPP) [Time] 28.7 s Normal 23.0-32.4 [facility] Comment on above: Order Comment: Speci men Type: BLOOD SPECIMENOrdering Facility: [facility] Address: [address] [place] [address] Performed By: #### 3 4528-0, 50531-1 ####[facility] [id number] [place] [address] [place] CNPNon 09-01-2021 CNPN Normal [facility] CNNURSEon 08-27-2021 CNNURSE Normal [facility] CBC W Auto Differential pane l (Bld)on 08-19-2021 Basophils (Bld) [#/Vol] 0.04 10*3/uL Normal <0.11 [facility] Comment on above: Order Comment: Speci men Type: BLOOD SPECIMENOrdering Facility: [facility] Address: [address] [place] [address] Performed By: #### 5 7021-8 ####[facility] [id number] [place] [address] [place] Basophils/100 WBC (Bld) 0.7 % Normal C [facility] Comment on above: Order Comment: Speci men Type: BLOOD SPECIMENOrdering Facility: [facility] Address: [address] [place] [address] Performed By: #### 5 7021-8 ####[facility] [id number] [place] [address] [place] Differential cell count method Nom (Bld) Auto Normal [facility] Comment on above: Order Comment: Speci men Type: BLOOD SPECIMENOrdering Facility: [facility] Address: [address] [place], [place] [address] Performed By: #### 5 7021-8 ####[facility] [id number] [place] [address] [place] Eosinophils (Bld) [#/Vol] 0.15 10*3/uL Normal <0.46 [facility] Comment on above: Order Comment: Speci men Type: BLOOD SPECIMENOrdering Facility: [facility] Address: [address] [place] [address] Performed By: #### 5 7021-8 ####[facility] [id number] [place] [address] [place] Eosinophils/100 WBC (Bld) 2.5 % Normal [facility] Comment on above: Order Comment: Speci men Type: BLOOD SPECIMENOrdering Facility: [facility] Address: [address] [place] [address] Performed By: #### 5 7021-8 ####[facility] [id number] [place] [address] [place] Erythrocyte distribution width (RBC) [Ratio] 15.0 % Normal 11.5-15.0 [facility] Comment on above: Order Comment: Speci men Type: BLOOD SPECIMENOrdering Facility: [facility] Address: [address] [place] [address] Performed By: #### 5 7021-8 ####[facility] [id number] [place] [address] Hematocrit (Bld) [Volume fraction] 49.1 % Normal 39.0-51.0 [facility] Comment on above: Order Comment: Speci men Type: BLOOD SPECIMENOrdering Facility: [facility] Address: [address] [place] [address] Performed By: #### 5 7021-8 ####[facility] [id number] [place] [address] [place] Hemoglobin (Bld) [Mass/Vol] 17.0 g/dL Normal 13.0-17.0 [facility] Comment on above: Order Comment: Speci men Type: BLOOD SPECIMENOrdering Facility: [facility] Address: [address] [place] [address] Performed By: #### 5 7021-8 ####[facility] [id number] [place] [address] [place] IMMATURE GRAN % 0.3 % Normal [facility] Comment on above: Order Comment: Speci men Type: BLOOD SPECIMENOrdering Facility: [facility] Address: [address] [place], [place] [address] Performed By: #### 5 7021-8 ####[facility] [id number] [place] [address] [place] IMMATURE GRAN ABS <0.03 Normal <0.10 [facility] Comment on above: Order Comment: Speci men Type: BLOOD SPECIMENOrdering Facility: [facility] Address: [address] [place], [place] [address] Performed By: #### 5 7021-8 ####[facility] [id number] [place] [address] Lymphocytes (Bld) [#/Vol] 1.58 10*3/uL Normal 1.00-4.00 [facility] Comment on above: Order Comment: Speci men Type: BLOOD SPECIMENOrdering Facility: [facility] Address: [address] [place] [address] Performed By: #### 5 7021-8 ####[facility] [id number] [place] [address] Lymphocytes/100 WBC (Bld) 26.2 % Normal [facility] Comment on above: Order Comment: Speci men Type: BLOOD SPECIMENOrdering Facility: [facility] Address: [address] [place], [place] [address] Performed By: #### 5 7021-8 ####[facility] [id number] [place] [address] [place] MCH (RBC) [Entitic mass] 29.6 pg Normal 26.0-34.0 [facility] Comment on above: Order Comment: Speci men Type: BLOOD SPECIMENOrdering Facility: [facility] Address: [address] [place], [place] [address] Performed By: #### 5 7021-8 ####[facility] [id number] [place] [address] [place] MCHC (RBC) [Mass/Vol] 34.6 g/dL Normal 30.5-36.0 [facility] Comment on above: Order Comment: Speci men Type: BLOOD SPECIMENOrdering Facility: [facility] Address: [address] [place] [address] Performed By: #### 5 7021-8 ####[facility] [id number] [place] [address] [place] MCV (RBC) [Entitic vol] 85.5 fL Normal 80.0-100.0 [facility] Comment on above: Order Comment: Speci men Type: BLOOD SPECIMENOrdering Facility: [facility] Address: [address] [place] [address] Performed By: #### 5 7021-8 ####[facility] [id number] [place] [address] [place] Monocytes (Bld) [#/Vol] 0.49 10*3/uL Normal <0.87 [facility] Comment on above: Order Comment: Speci men Type: BLOOD SPECIMENOrdering Facility: [facility] Address: [address] [place] [address] Performed By: #### 5 7021-8 ####[facility] [id number] [address] [place] Monocytes/100 WBC (Bld) 8.1 % Normal [facility] Comment on above: Order Comment: Speci men Type: BLOOD SPECIMENOrdering Facility: [facility] Address: [address] [place] [address] Performed By: #### 5 7021-8 ####[facility] [id number] [place] [address] [place] Neutrophils (Bld) [#/Vol] 3.74 10*3/uL Normal 1.45-7.50 [facility] Comment on above: Order Comment: Speci men Type: BLOOD SPECIMENOrdering Facility: [facility] Address: [address] [place] [address] Performed By: #### 5 7021-8 ####[facility] [id number] [place] [address] [place] Neutrophils/100 WBC (Bld) 62.2 % Normal [facility] Comment on above: Order Comment: Speci men Type: BLOOD SPECIMENOrdering Facility: [facility] Address: [address] [place] [address] Performed By: #### 5 7021-8 ####[facility] [id number] [place] [address] [place] Nucleated RBC (Bld) [#/Vol] 10*3/uL Normal <0.01 [facility] Comment on above: Order Comment: Speci men Type: BLOOD SPECIMENOrdering Facility: [facility] Address: [address] [place], [place] [address] Performed By: #### 5 7021-8 ####[facility] [id number] [place] [address] [place] Nucleated RBC/100 WBC (Bld) [Ratio] 0.0 /100 WBC Normal [facility] Comment on above: Order Comment: Speci men Type: BLOOD SPECIMENOrdering Facility: [facility] Address: [address] [place], [place] [address] Performed By: #### 5 7021-8 ####[facility] [id number] [place] [address] [place] Platelet mean volume (Bld) [Entitic vol] 10.4 fL Normal 9.0-12.7 [facility] Comment on above: Order Comment: Speci men Type: BLOOD SPECIMENOrdering Facility: [facility] Address: [address] [place] [address] Performed By: #### 5 7021-8 ####[facility] [id number] [address] [facility] Platelets (Bld) [#/Vol] 298 10*3/uL Normal 150-400 [facility] Comment on above: Order Comment: Speci men Type: BLOOD SPECIMENOrdering Facility: [facility] Address: [address] [place] [address] Performed By: #### 5 7021-8 ####[facility] [id number] [place] [address] [place] RBC (Bld) [#/Vol] 5.74 10*6/uL Normal 4.20-6.00 [facility] Comment on above: Order Comment: Speci men Type: BLOOD SPECIMENOrdering Facility: [facility] Address: [address] [place] [address] Performed By: #### 5 7021-8 ####[facility] [id number] [address] OF [place] WBC (Bld) [#/Vol] 6.02 10*3/uL Normal 3.70-11.00 [facility] Comment on above: Order Comment: Speci men Type: BLOOD SPECIMENOrdering Facility: [facility] Address: [address] [place] [address] Performed By: #### 5 7021-8 ####[facility] [id number] [place] [address] [place] CNNURSEon 08-19-2021 CNNURSE Normal [facility] CNOVon 08-19-2021 CNOV Normal [facility] CNOVSPon 08-19-2021 CNOVSP Normal [facility] Comprehensive metabolic 2000 panelon 08-19-2021 Albumin [Mass/Vol] 4.6 g/dL Normal 3.9-4.9 [facility] Comment on above: Order Comment: Speci men Type: BLOOD SPECIMENOrdering Facility: [facility] Address: [address] [place], [place] [address] Performed By: #### 2 4323-8, 308-1, ####[facility] [id number] [place] [address] [place] ALP [Catalytic activity/Vol] 84 U/L Normal 38-113 [facility] Comment on above: Order Comment: Speci men Type: BLOOD SPECIMENOrdering Facility: [facility] Address: [address] [place], [place] [address] Performed By: #### 2 4323-8, 3083-1, ####[facility] [id number] [place] [address] [place] ALT [Catalytic activity/Vol] 59 U/L High 10-54 [facility] Comment on above: Order Comment: Speci men Type: BLOOD SPECIMENOrdering Facility: [facility] Address: [address] [place], [place] [address] Performed By: #### 2 4323-8, 3083-03, ####[facility] [id number] [place] [address] [place] Anion gap [Moles/Vol] 12 mmol/L Normal 9-18 [facility] Comment on above: Order Comment: Speci men Type: BLOOD SPECIMENOrdering Facility: [facility] Address: [address] [place], [place] [id number] Performed By: #### 2 4323-8, 3083-03, ####[facility] [id number] [place] [address] [place] AST [Catalytic activity/Vol] 45 U/L High 14-40 [facility] Comment on above: Order Comment: Speci men Type: BLOOD SPECIMENOrdering Facility: [facility] Address: [address] [place], [place] [id number] Performed By: #### 2 4323-8, 3083-1, ####[facility] [id number] [place] [address] [place] Bilirubin [Mass/Vol] 0.3 mg/dL Normal 0.2-1.3 [facility] Comment on above: Order Comment: Speci men Type: BLOOD SPECIMENOrdering Facility: [facility] Address: [address] [place], [place] [address] Performed By: #### 2 4323-8, 308-, ####[facility] [id number] [place] [address] [place] Calcium [Mass/Vol] 9.7 mg/dL Normal 8.5-10.2 [facility] Comment on above: Order Comment: Speci men Type: BLOOD SPECIMENOrdering Facility: [facility] Address: [address] [place], [place] [address] Performed By: #### 2 4323-8, 3083-03, ####[facility] [id number] [place] [address] [place] Chloride [Moles/Vol] 102 mmol/L Normal 97-105 [facility] Comment on above: Order Comment: Speci men Type: BLOOD SPECIMENOrdering Facility: [facility] Address: [address] [place], [place] [address] Performed By: #### 2 4323-8, 3083-03, ####[facility] [id number] [place] [id number] [place] CO2 [Moles/Vol] 26 mmol/L Normal 22-30 [facility] Comment on above: Order Comment: Speci men Type: BLOOD SPECIMENOrdering Facility: [facility] Address: [address] [place], [place] [id number] Performed By: #### 2 4323-8, 3083-, ####[facility] [id number] [place] [id number] [place] Creatinine [Mass/Vol] 1.26 mg/dL High 0.73-1.22 [facility] Comment on above: Order Comment: Speci men Type: BLOOD SPECIMENOrdering Facility: [facility] Address: [address] [place], [place] [address] Performed By: #### 2 4323-8, 3083-03, ####[facility] [id number] [place] [address] [place] ESTIMATED GLOMERULAR FILTRATION RATE 67 mL/min/1.73m??? Normal >=60 [facility] Comment on above: Order Comment: Ronyi men Type: BLOOD SPECIMENOrdering Facility: [facility] Address: [address] [place], [place] [address] Result Comment: Laurita mated Glomerular Filtration Rate (eGFR) is calculated using the 2020 CKD-EPI creatinine equation. This equation utilizes serum creatinine, sex, and age as parameters. The creatinine assay has traceable calibration to isotope dilution-mass spectrometry. Refer to KDIGO guidelines for clinical interpretation. In patients with unstable renal function, e.g. those with acute kidney injury, the eGFR may not accurately reflect actual GFR. Performed By: #### 2 4323-8, 3083-03, ####[facility] [id number] [place] [id number] [place] Glucose [Mass/Vol] 108 mg/dL High 74-99 [facility] Comment on above: Order Comment: Aaliyah men Type: BLOOD SPECIMENOrdering Facility: [facility] Address: [address] [place], [place] [phone] Result Comment: The [place] [employer] (ADA) provides guidance for cutoff values for fasting glucose and random glucose. The ADA defines fasting as no caloric intake for at least 8 hours. Fasting plasma glucose results between 100 to 125 mg/dL indicate increased risk for diabetes (prediabetes).Fasting plasma glucose results greater than or equal to 126 mg/dL meet the criteria for diagnosis of diabetes. In the absence of unequivocal hyperglycemia, results should be confirmed by repeat testing. In a patient with classic symptoms of hyperglycemia or hyperglycemic crisis, random plasma glucose results greater than or equal to 200 mg/dL meet the criteria for diagnosis of diabetes.Reference: Standards of Medical Care in Diabetes 2016, [place] [employer]. Diabetes Care. 2016.39(Suppl 1). Performed By: #### 2 4323-8, 3084-1, ####[facility] [id number] [place] [address] [place] Potassium [Moles/Vol] 4.1 mmol/L Normal 3.7-5.1 [facility] Comment on above: Order Comment: Speci men Type: BLOOD SPECIMENOrdering Facility: [facility] Address: [address] [place] [address] Performed By: #### 2 4323-8, 3083-03, ####[facility] [place] [id number] [place] [address] [place] Protein [Mass/Vol] 7.4 g/dL Normal 6.3-8.0 [facility] Comment on above: Order Comment: Speci men Type: BLOOD SPECIMENOrdering Facility: [facility] Address: [address] Performed By: #### 2 4323-8, 30806-06, ####[facility] [id number] [place] [address] [place] Sodium [Moles/Vol] 140 mmol/L Normal 136-144 [facility] Comment on above: Order Comment: Speci men Type: BLOOD SPECIMENOrdering Facility: [facility] Address: [address] [place] [address] Performed By: #### 2 4323-8, 3084-1, 74896-8 ####[facility] [id number] [address] [place] Urea nitrogen [Mass/Vol] 17 mg/dL Normal 9-24 [facility] Comment on above: Order Comment: Speci men Type: BLOOD SPECIMENOrdering Facility: [facility] Address: [address] [place], [place] [address] Performed By: #### 2 4323-8, 3084-1, 05777-2 ####[facility] [id number] [address] [place] LDH SerPl-cCncon 08-19-2021 LDH [Catalytic activity/Vol] 334 U/L High 135-225 [facility] Comment on above: Order Comment: Speci men Type: BLOOD SPECIMENOrdering Facility: [facility] Address: [address] [place] [address] Performed By: #### 2 532-0 ####[facility] [id number] [place] [address] [place] Magnesium SerPl-mCncon 08-19 Magnesium [Mass/Vol] 2.3 mg/dL Normal 1.7-2.3 [facility] Comment on above: Order Comment: Speci men Type: BLOOD SPECIMENOrdering Facility: [facility] Address: [address] [place], [place] [address] Performed By: #### 2 4323-8, 3084-1, 72435-8 ####[facility] [id number] [place] [address] [place] PT panel Coag (PPP)on 2021 INR Coag (PPP) [Relative time] 1.0 {INR} Normal 0.9-1.3 [facility] Comment on above: Order Comment: Speci men Type: BLOOD SPECIMENOrdering Facility: [facility] Address: [address] [place] [address] Result Comment: Constazna min K Antagonist (VKA) Therapeutic Range: INR 2 to 3 (Target INR of 2.5)Note: For patients treated with VKA drugs, such as warfarin, the [place] [employer] 2012 Guideline recommends a therapeutic INR range of 2 to 3 (target INR of 2.5). This recommendation includes high-risk patients with antiphospholipid syndrome with previous arterial or venous thromboembolism, current-generation mechanical or bioprosthetic aortic heart valve replacement.Note: Patients with mechanical aortic valve replacement and additional risk factors for thromboembolic events (atrial fibrillation, previous thromboembolism, LV dysfunction, hypercoagulable conditions) or an older generation mechanical AVR (i.e., ball in-Cage) or any mechanical MVR should have a INR therapeutic range of 2.5 to 3.5 (target INR of 3).Lars GH, et al. Chest 2012, 141:7S-47SNishimkhalida RA, et al. [facility] 2017, 70: 252-289 Performed By: #### 3 4528-0, 33870-7 ####[facility] [id number] [place] [address] [place] PT Coag (PPP) [Time] 10.9 s Normal 9.7-13.0 [facility] Comment on above: Order Comment: Speci men Type: BLOOD SPECIMENOrdering Facility: [facility] Address: [address] [place], [place] [address] Performed By: #### 3 4528-0, 35632-9 ####[facility] [id number] [place] [address] [place] Phosphate SerPl-mCncon 08-19 Phosphate [Mass/Vol] 4.2 mg/dL Normal 2.7-4.8 [facility] Comment on above: Order Comment: Ronyi men Type: BLOOD SPECIMENOrdering Facility: [facility] Address: [address] [id number] Performed By: #### 2 777-1 ####[facility] [id number] [place] [address] [place] Urate SerPl-mCncon Urate [Mass/Vol] 7.4 mg/dL Normal 4.0-8.1 [facility] Comment on above: Order Comment: Speci men Type: BLOOD SPECIMENOrdering Facility: [facility] Address: [address] [place] [address] Performed By: #### 2 4323-8, 3084-1, 38754-3 ####[facility] [id number] [place] [address] [place] aPTT PPPon 08-19-2021 aPTT Coag (PPP) [Time] 28.3 s Normal 23.0-32.4 [facility] Comment on above: Order Comment: Speci men Type: BLOOD SPECIMENOrdering Facility: [facility] Address: [address] [place] [address] Performed By: #### 3 4528-0, 31464-3 ####[facility] [id number] [place] [address] [place] CNPNon 08-18-2021 CNPN Normal [facility] CBC W Auto Differential pane l (Bld)on 08-17-2021 Basophils (Bld) [#/Vol] 0.04 10*3/uL Normal <0.11 [facility] Comment on above: Order Comment: Speci men Type: BLOOD SPECIMENOrdering Facility: [facility] Address: [address] [place] [address] Performed By: #### 5 7021-8 ####[facility] [id number] [address] [place] Basophils/100 WBC (Bld) 0.5 % Normal [facility] Comment on above: Order Comment: Speci men Type: BLOOD SPECIMENOrdering Facility: [facility] Address: [address] [place], [place] [address] Performed By: #### 5 7021-8 ####[facility] [id number] [place] [address] [place] Differential cell count method Nom (Bld) Auto Normal [facility] Comment on above: Order Comment: Speci men Type: BLOOD SPECIMENOrdering Facility: [facility] Address: [address] [place], [place] [address] Performed By: #### 5 7021-8 ####[facility] [id number] [place] [address] [place] Eosinophils (Bld) [#/Vol] 0.18 10*3/uL Normal <0.46 [facility] Comment on above: Order Comment: Speci men Type: BLOOD SPECIMENOrdering Facility: [facility] Address: [address] [place], [place] [address] Performed By: #### 5 7021-8 ####[facility] [id number] [place] [address] [place] Eosinophils/100 WBC (Bld) 2.4 % Normal [facility] Comment on above: Order Comment: Speci men Type: BLOOD SPECIMENOrdering Facility: [facility] Address: [address] [place], [place] [address] Performed By: #### 5 7021-8 ####[facility] [id number] [place] [address] [place] Erythrocyte distribution width (RBC) [Ratio] 14.6 % Normal 11.5-15.0 [facility] Comment on above: Order Comment: Speci men Type: BLOOD SPECIMENOrdering Facility: [facility] Address: [address] [place], [place] [address] Performed By: #### 5 7021-8 ####[facility] [id number] [place] Hematocrit (Bld) [Volume fraction] 47.4 % Normal 39.0-51.0 [facility] Comment on above: Order Comment: Speci men Type: BLOOD SPECIMENOrdering Facility: [facility] Address: [address] [place] [address] Performed By: #### 5 7021-8 ####[facility] [id number] [place] [address] [place] Hemoglobin (Bld) [Mass/Vol] 16.4 g/dL Normal 13.0-17.0 [facility] Comment on above: Order Comment: Speci men Type: BLOOD SPECIMENOrdering Facility: [facility] Address: [address] [place] [address] Performed By: #### 5 7021-8 ####[facility] [id number] [address] [facility] IMMATURE GRAN % 0.3 % Normal [facility] Comment on above: Order Comment: Speci men Type: BLOOD SPECIMENOrdering Facility: [facility] Address: [address] [place] [address] Performed By: #### 5 7021-8 ####[facility] [id number] [address] [facility] IMMATURE GRAN ABS <0.03 Normal <0.10 [facility] Comment on above: Order Comment: Speci men Type: BLOOD SPECIMENOrdering Facility: [facility] Address: [address] [place] [address] Performed By: #### 5 7021-8 ####[facility] [id number] [address] [place] Lymphocytes (Bld) [#/Vol] 1.36 10*3/uL Normal 1.00-4.00 [facility] Comment on above: Order Comment: Speci men Type: BLOOD SPECIMENOrdering Facility: [facility] Address: [address] [place], [place] [address] Performed By: #### 5 7021-8 ####[facility] [id number] [address] Lymphocytes/100 WBC (Bld) 18.4 % Normal [facility] Comment on above: Order Comment: Speci men Type: BLOOD SPECIMENOrdering Facility: [facility] Address: [address] [place], [place] [address] Performed By: #### 5 7021-8 ####[facility] [id number] [address] [place] MCH (RBC) [Entitic mass] 29.8 pg Normal 26.0-34.0 [facility] Comment on above: Order Comment: Speci men Type: BLOOD SPECIMENOrdering Facility: [facility] Address: [address] [place], [place] [address] Performed By: #### 5 7021-8 ####[facility] [id number] [address] MCHC (RBC) [Mass/Vol] 34.6 g/dL Normal 30.5-36.0 [facility] Comment on above: Order Comment: Speci men Type: BLOOD SPECIMENOrdering Facility: [facility] Address: [address] [place] [address] Performed By: #### 5 7021-8 ####[facility] [id number] [address] [place] MCV (RBC) [Entitic vol] 86.0 fL Normal 80.0-100.0 [facility] Comment on above: Order Comment: Speci men Type: BLOOD SPECIMENOrdering Facility: [facility] Address: [address] [place], [place] [address] Performed By: #### 5 7021-8 ####[facility] [id number] [place] [address] [place] Monocytes (Bld) [#/Vol] 0.42 10*3/uL Normal <0.87 [facility] Comment on above: Order Comment: Speci men Type: BLOOD SPECIMENOrdering Facility: [facility] Address: [address] [place] [address] Performed By: #### 5 7021-8 ####[facility] [id number] [place] [address] [place] Monocytes/100 WBC (Bld) 5.7 % Normal [facility] Comment on above: Order Comment: Speci men Type: BLOOD SPECIMENOrdering Facility: [facility] Address: [address] [place] [address] Performed By: #### 5 7021-8 ####[facility] [id number] [place] [address] [place] Neutrophils (Bld) [#/Vol] 5.37 10*3/uL Normal 1.45-7.50 [facility] Comment on above: Order Comment: Speci men Type: BLOOD SPECIMENOrdering Facility: [facility] Address: [address] [place], [place] [address] Performed By: #### 5 7021-8 ####[facility] [id number] [place] [address] [place] Neutrophils/100 WBC (Bld) 72.7 % Normal [facility] Comment on above: Order Comment: Speci men Type: BLOOD SPECIMENOrdering Facility: [facility] Address: [address] [place], [place] [address] Performed By: #### 5 7021-8 ####[facility] [id number] [place] [address] [place] Nucleated RBC (Bld) [#/Vol] 10*3/uL Normal <0.01 [facility] Comment on above: Order Comment: Speci men Type: BLOOD SPECIMENOrdering Facility: [facility] Address: [address] [place], [place] [address] Performed By: #### 5 7021-8 ####[facility] [id number] [place] [address] [place] Nucleated RBC/100 WBC (Bld) [Ratio] 0.0 /100 WBC Normal [facility] Comment on above: Order Comment: Speci men Type: BLOOD SPECIMENOrdering Facility: [facility] Address: [address] [place], [place] [address] Performed By: #### 5 7021-8 ####[facility] [id number] [place] [address] [place] Platelet mean volume (Bld) [Entitic vol] 10.0 fL Normal 9.0-12.7 [facility] Comment on above: Order Comment: Speci men Type: BLOOD SPECIMENOrdering Facility: [facility] Address: [address] [place], [place] [address] Performed By: #### 5 7021-8 ####[facility] [id number] [place] [address] [place] Platelets (Bld) [#/Vol] 288 10*3/uL Normal 150-400 [facility] Comment on above: Order Comment: Speci men Type: BLOOD SPECIMENOrdering Facility: [facility] Address: [address] [place] [address] Performed By: #### 5 7021-8 ####[facility] [id number] [place] [address] [place] RBC (Bld) [#/Vol] 5.51 10*6/uL Normal 4.20-6.00 [facility] Comment on above: Order Comment: Speci men Type: BLOOD SPECIMENOrdering Facility: [facility] Address: [address] [place], [place] [address] Performed By: #### 5 7021-8 ####[facility] [id number] [place] [address] [place] WBC (Bld) [#/Vol] 7.39 10*3/uL Normal 3.70-11.00 [facility] Comment on above: Order Comment: Speci men Type: BLOOD SPECIMENOrdering Facility: [facility] Address: [address] [place], [place] [address] Performed By: #### 5 7021-8 ####[facility] [id number] [place] [address] [place] [address] ABD/PEL WO IVCONon 2021 CT ABD/PEL WO IVCON Normal [facility] CT CHEST W IVCON PEon 2021 CT CHEST W IVCON PE Normal [facility] Comprehensive metabolic 2000 panelon 08-17-2021 Albumin [Mass/Vol] 4.4 g/dL Normal 3.9-4.9 [facility] Comment on above: Order Comment: Speci men Type: BLOOD SPECIMENOrdering Facility: [facility] Address: [address] [place], [place] [address] Performed By: #### 3 040-3, 79367-0, 54597-2, 75438-8, BEAU ####[facility] [id number] [place] [address] [place] ALP [Catalytic activity/Vol] 74 U/L Normal 38-113 [facility] Comment on above: Order Comment: Speci men Type: BLOOD SPECIMENOrdering Facility: [facility] Address: [address] [place], [place] [address] Performed By: #### 3 040-3, 74398-2, 78936-8, 26088-8, BEAU ####[facility] [id number] [place] [address] [place] [address] [facility] ALT [Catalytic activity/Vol] 44 U/L Normal 10-54 [facility] Comment on above: Order Comment: Speci men Type: BLOOD SPECIMENOrdering Facility: [facility] Address: [address] [place] [address] Performed By: #### 3 040-3, 38273-8, 01293-6, 16325-9, BEAU ####[facility] [id number] [address] [place] Anion gap [Moles/Vol] 12 mmol/L Normal 9-18 [facility] Comment on above: Order Comment: Speci men Type: BLOOD SPECIMENOrdering Facility: [facility] Address: [address] [place] [address] Performed By: #### 3 040-3, 04319-9, 49263-8, 05927-5, BEAU ####[facility] [id number] [address] [place] AST [Catalytic activity/Vol] 27 U/L Normal 14-40 [facility] Comment on above: Order Comment: Speci men Type: BLOOD SPECIMENOrdering Facility: [facility] Address: [address] [place] [address] Performed By: #### 3 040-3, 87464-8, 84674-4, 85125-4, BEAU ####[facility] [id number] [place] [address] [place] Bilirubin [Mass/Vol] 0.7 mg/dL Normal 0.2-1.3 [facility] Comment on above: Order Comment: Speci men Type: BLOOD SPECIMENOrdering Facility: [facility] Address: [address] [place] [address] Performed By: #### 3 040-3, 39516-3, 51518-9, 97407-8, BEAU ####[facility] [id number] [place] [address] [place] Calcium [Mass/Vol] 10.3 mg/dL High 8.5-10.2 [facility] Comment on above: Order Comment: Speci men Type: BLOOD SPECIMENOrdering Facility: [facility] Address: [address] [place] [address] Performed By: #### 3 040-3, 25911-6, 18596-9, 49053-2, BEAU ####[facility] [id number] [place] [address] [place] Chloride [Moles/Vol] 99 mmol/L Normal 97-105 [facility] Comment on above: Order Comment: Speci men Type: BLOOD SPECIMENOrdering Facility: [facility] Address: [address] [place] [address] Performed By: #### 3 040-3, 53743-0, , , BEAU ####[facility] [id number] [place] [address] [place] CO2 [Moles/Vol] 26 mmol/L Normal 22-30 [facility] Comment on above: Order Comment: Speci men Type: BLOOD SPECIMENOrdering Facility: [facility] Address: [address] [place] [address] Performed By: #### 3 040-3, 98155-2, , 70515-9, BEAU ####[facility] [id number] [place] [address] [place] Creatinine [Mass/Vol] 1.21 mg/dL Normal 0.73-1.22 [facility] Comment on above: Order Comment: Speci men Type: BLOOD SPECIMENOrdering Facility: [facility] Address: [address] [place] [address] Performed By: #### 3 040-3, 98435-8, 95898-8, 83368-6, BEAU ####[facility] [id number] [place] [address] [place] ESTIMATED GLOMERULAR FILTRATION RATE 70 mL/min/1.73m??? Normal >=60 [facility] Comment on above: Order Comment: Aaliyah gibson Type: BLOOD SPECIMENOrdering Facility: [facility] Address: [address] [place] [address] Result Comment: Laurita mated Glomerular Filtration Rate (eGFR) is calculated using the 2020 CKD-EPI creatinine equation. This equation utilizes serum creatinine, sex, and age as parameters. The creatinine assay has traceable calibration to isotope dilution-mass spectrometry. Refer to KDIGO guidelines for clinical interpretation. In patients with unstable renal function, e.g. those with acute kidney injury, the eGFR may not accurately reflect actual GFR. Performed By: #### 3 040-3, 86519-5, 75851-0, 78729-6, BEAU ####[facility] [id number] [place] [address] [place] Glucose [Mass/Vol] 118 mg/dL High 74-99 [facility] Comment on above: Order Comment: Aaliyah gibson Type: BLOOD SPECIMENOrdering Facility: [facility] Address: [address] [place] [address] Result Comment: The [place] Diabetes [employer] (ADA) provides guidance for cutoff values for fasting glucose and random glucose. The ADA defines fasting as no caloric intake for at least 8 hours. Fasting plasma glucose results between 100 to 125 mg/dL indicate increased risk for diabetes (prediabetes).Fasting plasma glucose results greater than or equal to 126 mg/dL meet the criteria for diagnosis of diabetes. In the absence of unequivocal hyperglycemia, results should be confirmed by repeat testing. In a patient with classic symptoms of hyperglycemia or hyperglycemic crisis, random plasma glucose results greater than or equal to 200 mg/dL meet the criteria for diagnosis of diabetes.Reference: Standards of Medical Care in Diabetes 2016, [place] [employer]. Diabetes Care. 2016.39(Suppl 1). Performed By: #### 3 040-3, 39543-4, 12439-3, 11563-0, BEAU ####[facility] [id number] [place] [address] [place] Potassium [Moles/Vol] 4.1 mmol/L Normal 3.7-5.1 [facility] Comment on above: Order Comment: Speci men Type: BLOOD SPECIMENOrdering Facility: [facility] Address: [address] [place] [address] Performed By: #### 3 040-3, 83141-8, 10326-4, 88339-3, BEAU ####[facility] [id number] [place] [address] [place] Protein [Mass/Vol] 7.8 g/dL Normal 6.3-8.0 [facility] Comment on above: Order Comment: Speci men Type: BLOOD SPECIMENOrdering Facility: [facility] Address: [address] [place] [address] Performed By: #### 3 040-3, 67870-8, , , BEAU ####[facility] [id number] [place] [address] [place] Sodium [Moles/Vol] 137 mmol/L Normal 136-144 [facility] Comment on above: Order Comment: Speci men Type: BLOOD SPECIMENOrdering Facility: [facility] Address: [address] [place] [address] Performed By: #### 3 040-3, 83449-8, , , BEAU ####[facility] [id number] [place] [id number] [place] Urea nitrogen [Mass/Vol] 13 mg/dL Normal 9-24 [facility] Comment on above: Order Comment: Speci men Type: BLOOD SPECIMENOrdering Facility: [facility] Address: [address] [place] [address] Performed By: #### 3 040-3, 09976-2, , 03711-4, BEAU ####[facility] [id number] [place] [address] [place] D dimer FEU PPP-mCncon 08-17 Fibrin D-dimer FEU (PPP) [Mass/Vol] 1060 ng/mL FEU High <500 [facility] Comment on above: Order Comment: Speci men Type: BLOOD SPECIMENOrdering Facility: [facility] Address: [address] [place] [address] Performed By: #### 4 8065-7 ####[facility] [id number] [place] [address] [place] ED NOTEon 08-17-2021 ED NOTE Normal [facility] ED PROV NOTEon 08-17-2021 ED PROV NOTE Normal [facility] ED PROV NOTE Normal [facility] Fibrin D-dimer FEU (PPP) [Ma ss/Vol]on 08-17-2021 D DIMER AGE-RELATED CUTOFF 570 ng/mL FEU Normal [facility] Comment on above: Order Comment: Speci men Type: BLOOD SPECIMENOrdering Facility: [facility] Address: [address] [place] [address] Performed By: #### 4 8065-7 ####[facility] [id number] [place] [address] [place] Lipase SerPl-cCncon 08-18-19 22 Lipase [Catalytic activity/Vol] 22 U/L Normal 16-61 [facility] Comment on above: Order Comment: Speci men Type: BLOOD SPECIMENOrdering Facility: [facility] Address: [address] [place] [address] Performed By: #### 3 040-3, 81216-3, 04614-4, 35539-7, BEAU ####[facility] [id number] [place] [address] [place] Magnesium SerPl-mCncon 08-17 Magnesium [Mass/Vol] 2.0 mg/dL Normal 1.7-2.3 [facility] Comment on above: Order Comment: Speci men Type: BLOOD SPECIMENOrdering Facility: [facility] Address: [address] [place] [address] Performed By: #### 3 040-3, 25994-7, 77466-2, 18893-0, BEAU ####[facility] [id number] [place] [address] [place] NT-proBNP [facility] Natriuretic peptide.B prohormone N-Terminal [Mass/Vol] 1881 pg/mL High <125 [facility] Comment on above: Order Comment: Speci men Type: BLOOD SPECIMENOrdering Facility: [facility] Address: [address] [place] [address] Performed By: #### 3 040-3, 36424-4, 95782-1, 66965-8, BEAU ####[facility] [id number] [place] [address] [place] TROPONIN Ton 08-17-2021 Troponin T.cardiac [Mass/Vol] 0.022 ug/L Normal 0.000-0.02 9 [facility] Comment on above: Order Comment: Speci men Type: BLOOD SPECIMENOrdering Facility: [facility] Address: [address] [place] [address] Performed By: #### 3 040-3, 32388-5, 86085-1, 74780-2, BEAU ####[facility] [id number] [place] [id number] [place] Urinalysis complete panel (U )on 08-17-2021 Bilirubin Ql (U) Negative Normal Negative [facility] Comment on above: Order Comment: Speci men Type: URINE SPECIMENOrdering Facility: [facility] Address: [address] [place] [address] Performed By: #### 2 4356-8 ####[facility] [id number] [place] [address] [place] Clarity (Unsp spec) Clear Normal [facility] Comment on above: Order Comment: Speci men Type: URINE SPECIMENOrdering Facility: [facility] Address: [address] [place], [place] [address] Performed By: #### 2 4356-8 ####[facility] [id number] [place] [address] [place] Color (U) Yellow Normal Yellow [facility] Comment on above: Order Comment: Speci men Type: URINE SPECIMENOrdering Facility: [facility] Address: [address] [place] [address] Performed By: #### 2 4356-8 ####[facility] [id number] [place] [address] [place] Epithelial cells LM.HPF (Urine sed) [#/Area] Few Normal [facility] Comment on above: Order Comment: Speci men Type: URINE SPECIMENOrdering Facility: [facility] Address: [address] [place] [address] Performed By: #### 2 4356-8 ####[facility] [id number] [place] [address] [place] Glucose Test strip (U) [Mass/Vol] Negative Normal Negative [facility] Comment on above: Order Comment: Speci men Type: URINE SPECIMENOrdering Facility: [facility] Address: [address] [place] [address] Performed By: #### 2 4356-8 ####[facility] [id number] [place] [address] [place] Hemoglobin Ql (U) Negative Normal Negative [facility] Comment on above: Order Comment: Speci men Type: URINE SPECIMENOrdering Facility: [facility] Address: [address] [place], [place] [address] Performed By: #### 2 4356-8 ####[facility] [id number] [place] [address] [place] Hyaline casts (Urine sed) [#/Area] 1-3 /LPF Abnormal 0 /LPF [facility] Comment on above: Order Comment: Speci men Type: URINE SPECIMENOrdering Facility: [facility] Address: [address] [place], [place] [address] Performed By: #### 2 4356-8 ####[facility] [id number] [place] [address] [place] Ketones Ql (U) Negative Normal Negative [facility] Comment on above: Order Comment: Speci men Type: URINE SPECIMENOrdering Facility: [facility] Address: [address] [place], [place] [address] Performed By: #### 2 4356-8 ####[facility] [id number] [place] [address] [place] Leukocyte esterase Test strip Ql (U) Negative Normal Negative [facility] Comment on above: Order Comment: Speci men Type: URINE SPECIMENOrdering Facility: [facility] Address: [address] [place], [place] [address] Performed By: #### 2 4356-8 ####[facility] [id number] [place] [address] [place] Nitrite Ql (U) Negative Normal Negative [facility] Comment on above: Order Comment: Speci men Type: URINE SPECIMENOrdering Facility: [facility] Address: [address] [place], [place] [address] Performed By: #### 2 4356-8 ####[facility] [id number] [place] [address] [place] pH (U) 7.0 [pH] Normal 5.0-8.0 [facility] Comment on above: Order Comment: Speci men Type: URINE SPECIMENOrdering Facility: [facility] Address: [address] [place], [place] [address] Performed By: #### 2 4356-8 ####[facility] [id number] [place] [address] [place] Protein (U) [Mass/Vol] Negative Normal Negative [facility] Comment on above: Order Comment: Speci men Type: URINE SPECIMENOrdering Facility: [facility] Address: [address] [place], [place] [address] Performed By: #### 2 4356-8 ####[facility] [id number] [place] [address] [place] RBC LM.HPF (Urine sed) [#/Area] 0-3 /HPF Normal 0-3 /HPF [facility] Comment on above: Order Comment: Speci men Type: URINE SPECIMENOrdering Facility: [facility] Address: [address] [place], [place] [address] Performed By: #### 2 4356-8 ####[facility] [id number] [place] [address] [place] Specific gravity (U) [Rel density] 1.016 Normal 1.005-1.03 0 [facility] Comment on above: Order Comment: Speci men Type: URINE SPECIMENOrdering Facility: [facility] Address: [address] [place], [place] [address] Performed By: #### 2 4356-8 ####[facility] [id number] [place] [address] [place] Urobilinogen Ql (U) Negative Normal Negative [facility] Comment on above: Order Comment: Speci men Type: URINE SPECIMENOrdering Facility: [facility] Address: [address] [place], [place] [address] Performed By: #### 2 4356-8 ####[facility] [id number] [place] [address] [place] WBC LM.HPF (Urine sed) [#/Area] 0-5 /HPF Normal 0-5 /HPF [facility] Comment on above: Order Comment: Speci men Type: URINE SPECIMENOrdering Facility: [facility] Address: [address] [place] [address] Performed By: #### 2 4356-8 ####[facility] [id number] [place] [address] [place] XR CHEST 1V FRONTAL PORTon 0 08-17-2021 XR CHEST 1V FRONTAL PORT Normal [facility] CNPNon 08-13-2021 CNPN Normal [facility] CNPNon 08-12-2021 CNPN Normal [facility] CNPNon 08-11-2021 CNPN Normal [facility] ACTIVATED PTTon 08-08-2021 aPTT Coag (PPP) [Time] 29.9 s 23.0 - 32.4 sec [facility] CBC W Auto Differential pane l (Bld)on 08-08-2021 Basophils (Bld) [#/Vol] 10*3/uL Normal <0.11 [facility] Comment on above: Order Comment: Speci men Type: BLOOD SPECIMENOrdering Facility: [facility] Address: [address] [place], [place] [address] Performed By: #### 5 7021-8 ####[facility] [id number] [place] [address] [place] Basophils/100 WBC (Bld) 0.3 % Normal [facility] Comment on above: Order Comment: Speci men Type: BLOOD SPECIMENOrdering Facility: [facility] Address: [address] [place], [place] [address] Performed By: #### 5 7021-8 ####[facility] [id number] [address] [place] Differential cell count method Nom (Bld) Auto Normal [facility] Comment on above: Order Comment: Speci men Type: BLOOD SPECIMENOrdering Facility: [facility] Address: [address] [place] [address] Performed By: #### 5 7021-8 ####[facility] [id number] [place] [address] [place] Eosinophils (Bld) [#/Vol] 0.04 10*3/uL Normal <0.46 [facility] Comment on above: Order Comment: Speci men Type: BLOOD SPECIMENOrdering Facility: [facility] Address: [address] [place] [address] Performed By: #### 5 7021-8 ####[facility] [id number] [place] [address] OF [place] Eosinophils/100 WBC (Bld) 0.7 % Normal [facility] Comment on above: Order Comment: Speci men Type: BLOOD SPECIMENOrdering Facility: [facility] Address: [address] [place] [address] Performed By: #### 5 7021-8 ####[facility] [id number] [place] [address] [place] Erythrocyte distribution width (RBC) [Ratio] 15.6 % High 11.5-15.0 [facility] Comment on above: Order Comment: Speci men Type: BLOOD SPECIMENOrdering Facility: [facility] Address: [address] [place], [place] [address] Performed By: #### 5 7021-8 ####[facility] [id number] [place] [address] [place] Hematocrit (Bld) [Volume fraction] 43.0 % Normal 39.0-51.0 [facility] Comment on above: Order Comment: Speci men Type: BLOOD SPECIMENOrdering Facility: [facility] Address: [address] [place] [address] Performed By: #### 5 7021-8 ####[facility] [id number] [address] OF [place] Hemoglobin (Bld) [Mass/Vol] 14.6 g/dL Normal 13.0-17.0 [facility] Comment on above: Order Comment: Speci men Type: BLOOD SPECIMENOrdering Facility: [facility] Address: [address] [place] [address] Performed By: #### 5 7021-8 ####[facility] [id number] [place] [address] [facility] IMMATURE GRAN % 0.3 % Normal [facility] Comment on above: Order Comment: Speci men Type: BLOOD SPECIMENOrdering Facility: [facility] Address: [address] [place] [address] Performed By: #### 5 7021-8 ####[facility] [id number] [place] [address] IMMATURE GRAN ABS <0.03 Normal <0.10 [facility] Comment on above: Order Comment: Speci men Type: BLOOD SPECIMENOrdering Facility: [facility] Address: [address] [place] [address] Performed By: #### 5 7021-8 ####[facility] [id number] [place] [address] [place] Lymphocytes (Bld) [#/Vol] 1.61 10*3/uL Normal 1.00-4.00 [facility] Comment on above: Order Comment: Speci men Type: BLOOD SPECIMENOrdering Facility: [facility] Address: [address] [place] [address] Performed By: #### 5 7021-8 ####[facility] [id number] STATES [facility] Lymphocytes/100 WBC (Bld) 26.6 % Normal [facility] Comment on above: Order Comment: Speci men Type: BLOOD SPECIMENOrdering Facility: [facility] Address: [address] [place] [address] Performed By: #### 5 7021-8 ####[facility] [id number] [place] [address] MCH (RBC) [Entitic mass] 29.9 pg Normal 26.0-34.0 [facility] Comment on above: Order Comment: Speci men Type: BLOOD SPECIMENOrdering Facility: [facility] Address: [address] [place] [address] Performed By: #### 5 7021-8 ####[facility] [id number] [place] [address] STATES [facility] MCHC (RBC) [Mass/Vol] 34.0 g/dL Normal 30.5-36.0 [facility] Comment on above: Order Comment: Speci men Type: BLOOD SPECIMENOrdering Facility: [facility] Address: [address] [place] [address] Performed By: #### 5 7021-8 ####[facility] [id number] [address] STATES [place] MCV (RBC) [Entitic vol] 87.9 fL Normal 80.0-100.0 C [facility] Comment on above: Order Comment: Speci men Type: BLOOD SPECIMENOrdering Facility: [facility] Address: [address] [place], [place] [address] Performed By: #### 5 7021-8 ####[facility] [id number] [address] STATES [place] Monocytes (Bld) [#/Vol] 0.40 10*3/uL Normal <0.87 [facility] Comment on above: Order Comment: Speci men Type: BLOOD SPECIMENOrdering Facility: [facility] Address: [address] [place], [place] [address] Performed By: #### 5 7021-8 ####[facility] [id number] [place] [address] [place] Monocytes/100 WBC (Bld) 6.6 % Normal [facility] Comment on above: Order Comment: Speci men Type: BLOOD SPECIMENOrdering Facility: [facility] Address: [address] [place], [place] [address] Performed By: #### 5 7021-8 ####[facility] [id number] [place] [address] [place] Neutrophils (Bld) [#/Vol] 3.97 10*3/uL Normal 1.45-7.50 [facility] Comment on above: Order Comment: Speci men Type: BLOOD SPECIMENOrdering Facility: [facility] Address: [address] [place], [place] [address] Performed By: #### 5 7021-8 ####[facility] [id number] [place] [address] [place] Neutrophils/100 WBC (Bld) 65.5 % Normal [facility] Comment on above: Order Comment: Speci men Type: BLOOD SPECIMENOrdering Facility: [facility] Address: [address] [place], [place] [address] Performed By: #### 5 7021-8 ####[facility] [id number] [place] [address] [place] Nucleated RBC (Bld) [#/Vol] 10*3/uL Normal <0.01 [facility] Comment on above: Order Comment: Speci men Type: BLOOD SPECIMENOrdering Facility: [facility] Address: [address] [place], [place] [address] Performed By: #### 5 7021-8 ####[facility] [id number] [place] [address] [place] Nucleated RBC/100 WBC (Bld) [Ratio] 0.0 /100 WBC Normal [facility] Comment on above: Order Comment: Speci men Type: BLOOD SPECIMENOrdering Facility: [facility] Address: [address] [place], [place] [address] Performed By: #### 5 7021-8 ####[facility] [id number] [place] [address] [place] Platelet mean volume (Bld) [Entitic vol] 10.1 fL Normal 9.0-12.7 [facility] Comment on above: Order Comment: Speci men Type: BLOOD SPECIMENOrdering Facility: [facility] Address: [address] [place], [place] [address] Performed By: #### 5 7021-8 ####[facility] [id number] [place] [address] [place] Platelets (Bld) [#/Vol] 263 10*3/uL Normal 150-400 [facility] Comment on above: Order Comment: Speci men Type: BLOOD SPECIMENOrdering Facility: [facility] Address: [address] [place], [place] [address] Performed By: #### 5 7021-8 ####[facility] [id number] [place] [address] [place] RBC (Bld) [#/Vol] 4.89 10*6/uL Normal 4.20-6.00 [facility] Comment on above: Order Comment: Speci men Type: BLOOD SPECIMENOrdering Facility: [facility] Address: [address] [place], [place] [address] Performed By: #### 5 7021-8 ####[facility] [id number] [place] WBC (Bld) [#/Vol] 6.06 10*3/uL Normal 3.70-11.00 [facility] Comment on above: Order Comment: Speci men Type: BLOOD SPECIMENOrdering Facility: [facility] Address: [address] [place] [address] Performed By: #### 5 7021-8 ####[facility] [id number] [address] STATES OF POP Abs Immature Gran <0.03 <0.10 k/uL [facility] Basophils (Bld) [#/Vol] 10*3/uL <0.11 k/[facility]L [facility] Basophils/100 WBC (Bld) 0.3 % C [facility] Differential cell count method Nom (Bld) Auto [facility] Eosinophils (Bld) [#/Vol] 0.04 10*3/uL <0.46 k/uL [facility] Eosinophils/100 WBC (Bld) 0.7 % [facility] Erythrocyte distribution width (RBC) [Ratio] 15.6 % High 11.5 - 15.0 % [facility] Hematocrit (Bld) [Volume fraction] 43.0 % 39.0 - 51.0 % [facility] Hemoglobin (Bld) [Mass/Vol] 14.6 g/dL 13.0 - 17.0 g/dL [facility] Immature Gran % 0.3 % [facility] Lymphocytes (Bld) [#/Vol] 1.61 10*3/uL 1.00 - 4.00 k/uL [facility] Lymphocytes/100 WBC (Bld) 26.6 % [facility] MCH (RBC) [Entitic mass] 29.9 pg 26.0 - 34.0 pg [facility] MCHC (RBC) [Mass/Vol] 34.0 g/dL 30.5 - 36.0 g/dL [facility] MCV (RBC) [Entitic vol] 87.9 fL 80.0 - 100.0 fL [facility] Monocytes (Bld) [#/Vol] 0.40 10*3/uL <0.87 k/uL [facility] Monocytes/100 WBC (Bld) 6.6 % C [facility] Neutrophils (Bld) [#/Vol] 3.97 10*3/uL 1.45 - 7.50 k/uL [facility] Neutrophils/100 WBC (Bld) 65.5 % [facility] Nucleated RBC (Bld) [#/Vol] 10*3/uL <0.01 k/uL [facility] Nucleated RBC/100 WBC (Bld) [Ratio] 0.0 /100 WBC [facility] Platelet mean volume (Bld) [Entitic vol] 10.1 fL 9.0 - 12.7 fL [facility] Platelets (Bld) [#/Vol] 263 10*3/uL 150 - 400 k/uL [facility] RBC (Bld) [#/Vol] 4.89 10*6/uL 4.20 - 6.00 m/uL [facility] WBC (Bld) [#/Vol] 6.06 10*3/uL 3.70 - 11.00 k/uL [facility] CNNURSEon 08-08-2021 CNNURSE Normal [facility] CNOVSPon 08-08-2021 CNOVSP Normal [facility] CNSWon 08-08-2021 CNSW Normal [facility] Comprehensive metabolic 2000 panelon 08-08-2021 Albumin [Mass/Vol] 4.2 g/dL Normal 3.9-4.9 [facility] Comment on above: Order Comment: Speci men Type: BLOOD SPECIMENOrdering Facility: [facility] Address: [address] [place], [place] [address] Performed By: #### 2 4323-8, 3083-, ####[facility] [id number] [address] STATES OF [place] ALP [Catalytic activity/Vol] 56 U/L Normal 38-113 [facility] Comment on above: Order Comment: Speci men Type: BLOOD SPECIMENOrdering Facility: [facility] Address: [address] [place], [place] [address] Performed By: #### 2 4323-8, 3084-1, ####[facility] [id number] [place] [address] [place] ALT [Catalytic activity/Vol] 34 U/L Normal 10-54 [facility] Comment on above: Order Comment: Speci men Type: BLOOD SPECIMENOrdering Facility: [facility] Address: [address] [place], [place] [address] Performed By: #### 2 4323-8, 3084-1, 61247-4 ####[facility] [id number] [place] [address] [place] Anion gap [Moles/Vol] 10 mmol/L Normal 9-18 [facility] Comment on above: Order Comment: Speci men Type: BLOOD SPECIMENOrdering Facility: [facility] Address: [address] [place] [address] Performed By: #### 2 4323-8, 308-1, ####[facility] [id number] [address] [place] AST [Catalytic activity/Vol] 18 U/L Normal 14-40 [facility] Comment on above: Order Comment: Speci men Type: BLOOD SPECIMENOrdering Facility: [facility] Address: [address] [place], [place] [address] Performed By: #### 2 4323-8, 3084-1, ####[facility] [id number] [place] [address] [place] Bilirubin [Mass/Vol] 0.5 mg/dL Normal 0.2-1.3 [facility] Comment on above: Order Comment: Speci men Type: BLOOD SPECIMENOrdering Facility: [facility] Address: [address] [place], [place] [address] Performed By: #### 2 4323-8, 3084-1, 31818-1 ####[facility] [id number] [place] [address] [place] Calcium [Mass/Vol] 9.6 mg/dL Normal 8.5-10.2 [facility] Comment on above: Order Comment: Speci men Type: BLOOD SPECIMENOrdering Facility: [facility] Address: [address] [place], [place] [address] Performed By: #### 2 4323-8, 3084-1, ####[facility] [id number] [place] [address] [place] Chloride [Moles/Vol] 103 mmol/L Normal 97-105 [facility] Comment on above: Order Comment: Speci men Type: BLOOD SPECIMENOrdering Facility: [facility] Address: [address] [place] [address] Performed By: #### 2 4323-8, 308-1, ####[facility] [id number] [place] [address] [place] CO2 [Moles/Vol] 26 mmol/L Normal 22-30 [facility] Comment on above: Order Comment: Speci men Type: BLOOD SPECIMENOrdering Facility: [facility] Address: [address] [place], [place] [address] Performed By: #### 2 4323-8, 308-1, ####[facility] [id number] [place] [address] [place] Creatinine [Mass/Vol] 1.24 mg/dL High 0.73-1.22 [facility] Comment on above: Order Comment: Speci men Type: BLOOD SPECIMENOrdering Facility: [facility] Address: [address] [place], [place] [address] Performed By: #### 2 4323-8, 3084-1, ####[facility] [id number] [place] [id number] [place] ESTIMATED GLOMERULAR FILTRATION RATE 68 mL/min/1.73m??? Normal >=60 [facility] Comment on above: Order Comment: Aaliyah gibson Type: BLOOD SPECIMENOrdering Facility: [facility] Address: [address] [place] [address] Result Comment: Laurita mated Glomerular Filtration Rate (eGFR) is calculated using the 2020 CKD-EPI creatinine equation. This equation utilizes serum creatinine, sex, and age as parameters. The creatinine assay has traceable calibration to isotope dilution-mass spectrometry. Refer to KDIGO guidelines for clinical interpretation. In patients with unstable renal function, e.g. those with acute kidney injury, the eGFR may not accurately reflect actual GFR. Performed By: #### 2 4323-8, 3083-, ####[facility] [id number] [place] [address] [place] Glucose [Mass/Vol] 119 mg/dL High 74-99 [facility] Comment on above: Order Comment: Aaliyah gibson Type: BLOOD SPECIMENOrdering Facility: [facility] Address: [address] [place] [address] Result Comment: The [place] [employer] (ADA) provides guidance for cutoff values for fasting glucose and random glucose. The ADA defines fasting as no caloric intake for at least 8 hours. Fasting plasma glucose results between 100 to 125 mg/dL indicate increased risk for diabetes (prediabetes).Fasting plasma glucose results greater than or equal to 126 mg/dL meet the criteria for diagnosis of diabetes. In the absence of unequivocal hyperglycemia, results should be confirmed by repeat testing. In a patient with classic symptoms of hyperglycemia or hyperglycemic crisis, random plasma glucose results greater than or equal to 200 mg/dL meet the criteria for diagnosis of diabetes.Reference: Standards of Medical Care in Diabetes 2016, [place] [employer]. Diabetes Care. 2016.39(Suppl 1). Performed By: #### 2 4323-8, 308-1, ####[facility] [id number] [place] [id number] [place] Potassium [Moles/Vol] 4.2 mmol/L Normal 3.7-5.1 [facility] Comment on above: Order Comment: Speci men Type: BLOOD SPECIMENOrdering Facility: [facility] Address: [address] [place] [address] Performed By: #### 2 4323-8, 3083-03, ####[facility] [id number] [place] [address] [place] Protein [Mass/Vol] 6.8 g/dL Normal 6.3-8.0 [facility] Comment on above: Order Comment: Speci men Type: BLOOD SPECIMENOrdering Facility: [facility] Address: [address] [place], [place] [address] Performed By: #### 2 4323-8, 3083-03, ####[facility] [id number] [place] [address] [place] Sodium [Moles/Vol] 139 mmol/L Normal 136-144 [facility] Comment on above: Order Comment: Speci men Type: BLOOD SPECIMENOrdering Facility: [facility] Address: [address] [place], [place] [address] Performed By: #### 2 4323-8, 3083-03, ####[facility] [place] [id number] [place] [address] [place] Urea nitrogen [Mass/Vol] 15 mg/dL Normal 9-24 [facility] Comment on above: Order Comment: Speci men Type: BLOOD SPECIMENOrdering Facility: [facility] Address: [address] [place] [address] Performed By: #### 2 4323-8, 3083-03, ####[facility] [id number] [place] [id number] [place] Albumin [Mass/Vol] 4.2 g/dL 3.9 - 4.9 g/dL [facility] ALP [Catalytic activity/Vol] 56 U/L 38 - 113 U/L [facility] ALT [Catalytic activity/Vol] 34 U/L 10 - 54 U/L [facility] Anion gap [Moles/Vol] 10 mmol/L 9 - 18 mmol/L [facility] AST [Catalytic activity/Vol] 18 U/L 14 - 40 U/L [facility] Bilirubin [Mass/Vol] 0.5 mg/dL 0.2 - 1 .3 mg/dL [facility] Calcium [Mass/Vol] 9.6 mg/dL 8.5 - 10. 2 mg/dL [facility] Chloride [Moles/Vol] 103 mmol/L 97 - 10 5 mmol/L [facility] CO2 [Moles/Vol] 26 mmol/L 22 - 30 mmol/L [facility] Creatinine [Mass/Vol] 1.24 mg/dL High 0.73 - 1.22 mg/dL [facility] Estimated Glomerular Filtration Rate 68 mL/min/1.73m >=60 mL/min/1.7 3m [facility] Glucose [Mass/Vol] 119 mg/dL High 74 - 99 mg/dL [facility] Potassium [Moles/Vol] 4.2 mmol/L 3.7 - 5.1 mmol/L [facility] Protein [Mass/Vol] 6.8 g/dL 6.3 - 8.0 g/dL [facility] Sodium [Moles/Vol] 139 mmol/L 136 - 144 mmol/L [facility] Urea nitrogen [Mass/Vol] 15 mg/dL 9 - 24 mg/dL [facility] LD LACTATE DEHYDROon 022 LDH [Catalytic activity/Vol] 232 U/L High 135 - 225 U/L [facility] LDH SerPl-cCncon 08-08-2021 LDH [Catalytic activity/Vol] 232 U/L High 135-225 [facility] Comment on above: Order Comment: Speci men Type: BLOOD SPECIMENOrdering Facility: [facility] Address: [address] [place], [place] [address] Performed By: #### 2 532-0 ####[facility] [id number] [place] [address] [place] MAGNESIUM BLDon 08-08-2021 Magnesium [Mass/Vol] 2.1 mg/dL 1.7 - 2 .3 mg/dL [facility] Magnesium SerPl-mCncon 08-08 Magnesium [Mass/Vol] 2.1 mg/dL Normal 1.7-2.3 [facility] Comment on above: Order Comment: Aaliyah gibson Type: BLOOD SPECIMENOrdering Facility: [facility] Address: [address] [place], [place] [address] Performed By: #### 2 4323-8, 3084-1, 61667-8 ####[facility] [id number] [address] OF [facility] PHOSPHORUS INORGANICon 08-08 Phosphate [Mass/Vol] 4.1 mg/dL 2.7 - 4 .8 mg/dL [facility] PT panel Coag (PPP)on 2021 INR Coag (PPP) [Relative time] 1.0 {INR} Normal 0.9-1.3 [facility] Comment on above: Order Comment: Aaliyah gibson Type: BLOOD SPECIMENOrdering Facility: [facility] Address: [address] [place], [place] [phone] Result Comment: Constanza min K Antagonist (VKA) Therapeutic Range: INR 2 to 3 (Target INR of 2.5)Note: For patients treated with VKA drugs, such as warfarin, the [place] [employer] 2012 Guideline recommends a therapeutic INR range of 2 to 3 (target INR of 2.5). This recommendation includes high-risk patients with antiphospholipid syndrome with previous arterial or venous thromboembolism, current-generation mechanical or bioprosthetic aortic heart valve replacement.Note: Patients with mechanical aortic valve replacement and additional risk factors for thromboembolic events (atrial fibrillation, previous thromboembolism, LV dysfunction, hypercoagulable conditions) or an older generation mechanical AVR (i.e., ball in-Cage) or any mechanical MVR should have a INR therapeutic range of 2.5 to 3.5 (target INR of 3).Lars JAMISON, et al. Chest 2012, 141:7S-47SCaitie WHALEN, et al. [facility] 2017, 70: 252-289 Performed By: #### 3 4528-0, 55690-0 ####[facility] [id number] [place] [address] [place] PT Coag (PPP) [Time] 10.7 s Normal 9.7-13.0 [facility] Comment on above: Order Comment: Speci men Type: BLOOD SPECIMENOrdering Facility: [facility] Address: [address] [place] [address] Performed By: #### 3 4528-0, 87046-5 ####[facility] [id number] [place] [address] [place] INR Coag (PPP) [Relative time] 1.0 {INR} 0.9 - 1.3 [facility] PT Coag (PPP) [Time] 10.7 s 9.7 - 1 3.0 sec [facility] Phosphate [facility] 08-08 Phosphate [Mass/Vol] 4.1 mg/dL Normal 2.7-4.8 [facility] Comment on above: Order Comment: Speci men Type: BLOOD SPECIMENOrdering Facility: [facility] Address: [address] [place], [place] [address] Performed By: #### 2 777-1 ####[facility] [place] [facility] [id number] [address] OF [place] URIC ACID BLOODon 08-08-2021 Urate [Mass/Vol] 7.5 mg/dL 4.0 - 8.1 mg/dL [facility] Urate [facility] U[facility] [Mass/Vol] 7.5 mg/dL Normal 4.0-8.1 [facility] Comment on above: Order Comment: Speci men Type: BLOOD SPECIMENOrdering Facility: [facility] Address: [address] [place] [address] Performed By: #### 2 4323-8, 3084-1, 78005-7 ####[facility] [id number] [place] [address] aPTT PPPon 08-08-2021 aPTT Coag (PPP) [Time] 29.9 s Normal 23.0-32.4 [facility] Comment on above: Order Comment: Speci men Type: BLOOD SPECIMENOrdering Facility: [facility] Address: [address] [place] [address] Performed By: #### 3 4528-0, 51123-0 ####[facility] [id number] [place] [address] [place] CBC W Auto Differential pane l (Bld)on 08-06-2021 Basophils (Bld) [#/Vol] 0.03 10*3/uL Normal <0.11 [facility] Comment on above: Order Comment: Speci men Type: BLOOD SPECIMENOrdering Facility: [facility] Address: [address] [place] [address] Performed By: #### 5 7021-8 ####[facility] [place] [facility] [id number] [address] [place] Basophils/100 WBC (Bld) 0.5 % Normal [facility] Comment on above: Order Comment: Speci men Type: BLOOD SPECIMENOrdering Facility: [facility] Address: [address] [place] [address] Performed By: #### 5 7021-8 ####[facility] [id number] [place] [address] [facility] Differential cell count method Nom (Bld) Auto Normal [facility] Comment on above: Order Comment: Speci men Type: BLOOD SPECIMENOrdering Facility: [facility] Address: [address] [place] [address] Performed By: #### 5 7021-8 ####[facility] [id number] [place] [address] [place] Eosinophils (Bld) [#/Vol] 0.05 10*3/uL Normal <0.46 [facility] Comment on above: Order Comment: Speci men Type: BLOOD SPECIMENOrdering Facility: [facility] Address: [address] [place], [place] [address] Performed By: #### 5 7021-8 ####[facility] [id number] [place] [address] Eosinophils/100 WBC (Bld) 0.8 % Normal [facility] Comment on above: Order Comment: Speci men Type: BLOOD SPECIMENOrdering Facility: [facility] Address: [address] [place], [place] [address] Performed By: #### 5 7021-8 ####[facility] [place] [id number] [place] [address] [place] Erythrocyte distribution width (RBC) [Ratio] 15.7 % High 11.5-15.0 [facility] Comment on above: Order Comment: Speci men Type: BLOOD SPECIMENOrdering Facility: [facility] Address: [address] [place], [place] [address] Performed By: #### 5 7021-8 ####[facility] [id number] [place] [address] [place] Hematocrit (Bld) [Volume fraction] 43.7 % Normal 39.0-51.0 [facility] Comment on above: Order Comment: Speci men Type: BLOOD SPECIMENOrdering Facility: [facility] Address: [address] [place], [place] [address] Performed By: #### 5 7021-8 ####[facility] [place] [id number] [place] [address] [place] Hemoglobin (Bld) [Mass/Vol] 14.8 g/dL Normal 13.0-17.0 [facility] Comment on above: Order Comment: Speci men Type: BLOOD SPECIMENOrdering Facility: [facility] Address: [address] [place], [place] [address] Performed By: #### 5 7021-8 ####[facility] [id number] [place] [address] [facility] IMMATURE GRAN % 0.5 % Normal [facility] Comment on above: Order Comment: Speci men Type: BLOOD SPECIMENOrdering Facility: [facility] Address: [address] [place], [place] [address] Performed By: #### 5 7021-8 ####[facility] [id number] [place] [address] [place] IMMATURE GRAN ABS 0.03 k/uL Normal <0.10 [facility] Comment on above: Order Comment: Speci men Type: BLOOD SPECIMENOrdering Facility: [facility] Address: [address] [place] [address] Performed By: #### 5 7021-8 ####[facility] [place] [facility] [id number] [place] [address] [place] Lymphocytes (Bld) [#/Vol] 1.42 10*3/uL Normal 1.00-4.00 [facility] Comment on above: Order Comment: Speci men Type: BLOOD SPECIMENOrdering Facility: [facility] Address: [address] [place], [place] [address] Performed By: #### 5 7021-8 ####[facility] [id number] [place] [address] STATES [facility] Lymphocytes/100 WBC (Bld) 23.2 % Normal [facility] Comment on above: Order Comment: Speci men Type: BLOOD SPECIMENOrdering Facility: [facility] Address: [address] [place], [place] [address] Performed By: #### 5 7021-8 ####[facility] [id number] [place] [address] [place] MCH (RBC) [Entitic mass] 29.9 pg Normal 26.0-34.0 [facility] Comment on above: Order Comment: Speci men Type: BLOOD SPECIMENOrdering Facility: [facility] Address: [address] [place] [address] Performed By: #### 5 7021-8 ####[facility] [id number] [place] [address] [facility] MCHC (RBC) [Mass/Vol] 33.9 g/dL Normal 30.5-36.0 [facility] Comment on above: Order Comment: Speci men Type: BLOOD SPECIMENOrdering Facility: [facility] Address: [address] [place] [address] Performed By: #### 5 7021-8 ####[facility] [id number] [place] [address] [facility] MCV (RBC) [Entitic vol] 88.3 fL Normal 80.0-100.0 [facility] Comment on above: Order Comment: Speci men Type: BLOOD SPECIMENOrdering Facility: [facility] Address: [address] [place], [place] [address] Performed By: #### 5 7021-8 ####[facility] [id number] [place] [address] [place] Monocytes (Bld) [#/Vol] 0.50 10*3/uL Normal <0.87 [facility] Comment on above: Order Comment: Speci men Type: BLOOD SPECIMENOrdering Facility: [facility] Address: [address] [place], [place] [address] Performed By: #### 5 7021-8 ####[facility] [id number] [place] [address] Monocytes/100 WBC (Bld) 8.2 % Normal [facility] Comment on above: Order Comment: Speci men Type: BLOOD SPECIMENOrdering Facility: [facility] Address: [address] [place], [place] [address] Performed By: #### 5 7021-8 ####[facility] [place] [facility] [id number] [place] [address] [place] Neutrophils (Bld) [#/Vol] 4.08 10*3/uL Normal 1.45-7.50 [facility] Comment on above: Order Comment: Speci men Type: BLOOD SPECIMENOrdering Facility: [facility] Address: [address] [place], [place] [address] Performed By: #### 5 7021-8 ####[facility] [id number] [place] [address] [place] Neutrophils/100 WBC (Bld) 66.8 % Normal [facility] Comment on above: Order Comment: Speci men Type: BLOOD SPECIMENOrdering Facility: [facility] Address: [address] [place], [place] [address] Performed By: #### 5 7021-8 ####[facility] [id number] [place] [address] [place] Nucleated RBC (Bld) [#/Vol] 10*3/uL Normal <0.01 [facility] Comment on above: Order Comment: Speci men Type: BLOOD SPECIMENOrdering Facility: [facility] Address: [address] [place], [place] [address] Performed By: #### 5 7021-8 ####[facility] [id number] [place] [address] [place] Nucleated RBC/100 WBC (Bld) [Ratio] 0.0 /100 WBC Normal [facility] Comment on above: Order Comment: Speci men Type: BLOOD SPECIMENOrdering Facility: [facility] Address: [address] [place], [place] [address] Performed By: #### 5 7021-8 ####[facility] [id number] [place] [address] [place] Platelet mean volume (Bld) [Entitic vol] 10.2 fL Normal 9.0-12.7 [facility] Comment on above: Order Comment: Speci men Type: BLOOD SPECIMENOrdering Facility: [facility] Address: [address] [place], [place] [address] Performed By: #### 5 7021-8 ####[facility] [id number] [place] [address] [place] Platelets (Bld) [#/Vol] 262 10*3/uL Normal 150-400 [facility] Comment on above: Order Comment: Speci men Type: BLOOD SPECIMENOrdering Facility: [facility] Address: [address] [place], [place] [address] Performed By: #### 5 7021-8 ####[facility] [id number] [place] [address] [place] RBC (Bld) [#/Vol] 4.95 10*6/uL Normal 4.20-6.00 [facility] Comment on above: Order Comment: Speci men Type: BLOOD SPECIMENOrdering Facility: [facility] Address: [address] [place], [place] [address] Performed By: #### 5 7021-8 ####[facility] [id number] [place] [address] [place] WBC (Bld) [#/Vol] 6.11 10*3/uL Normal 3.70-11.00 [facility] Comment on above: Order Comment: Speci men Type: BLOOD SPECIMENOrdering Facility: [facility] Address: [address] [place], [place] [address] Performed By: #### 5 7021-8 ####[facility] [id number] [place] [address] [place] CNNURSEon 08-06-2021 CNNURSE Normal [facility] CNOVSPon 08-06-2021 CNOVSP Normal [facility] CT ABD/PEL W IVCONon 022 CT ABD/PEL W IVCON Normal [facility] Comprehensive metabolic 2000 panelon 08-06-2021 Albumin [Mass/Vol] 4.3 g/dL Normal 3.9-4.9 [facility] Comment on above: Order Comment: Speci men Type: BLOOD SPECIMENOrdering Facility: [facility] Address: [address] [place], [place] [id number] Performed By: #### 2 4323-8, 3084-1, ####[facility] [id number] [place] [address] [place] ALP [Catalytic activity/Vol] 64 U/L Normal 38-113 [facility] Comment on above: Order Comment: Speci men Type: BLOOD SPECIMENOrdering Facility: [facility] Address: [address] [place], [place] [id number] Performed By: #### 2 4323-8, 3084-1, 94891-1 ####[facility] [place] [facility] [id number] [place] [address] [place] ALT [Catalytic activity/Vol] 52 U/L Normal 10-54 [facility] Comment on above: Order Comment: Speci men Type: BLOOD SPECIMENOrdering Facility: [facility] Address: [address] [place], [place] [id number] Performed By: #### 2 4323-8, 308-1, ####[facility] [id number] [place] [address] [place] Anion gap [Moles/Vol] 9 mmol/L Normal 9-18 [facility] Comment on above: Order Comment: Speci men Type: BLOOD SPECIMENOrdering Facility: [facility] Address: [address] [place], [place] [id number] Performed By: #### 2 4323-8, 3084-1, 13315-6 ####[facility] [facility] [id number] [place] [address] [place] AST [Catalytic activity/Vol] 46 U/L High 14-40 [facility] Comment on above: Order Comment: Speci men Type: BLOOD SPECIMENOrdering Facility: [facility] Address: [address] [place], [place] [address] Performed By: #### 2 4323-8, 3084-1, ####[facility] [id number] [place] [address] [place] Bilirubin [Mass/Vol] 0.3 mg/dL Normal 0.2-1.3 [facility] Comment on above: Order Comment: Speci men Type: BLOOD SPECIMENOrdering Facility: [facility] Address: [address] [place], [place] [address] Performed By: #### 2 4323-8, 308-1, ####[facility] [id number] [place] [address] [place] Calcium [Mass/Vol] 9.1 mg/dL Normal 8.5-10.2 [facility] Comment on above: Order Comment: Speci men Type: BLOOD SPECIMENOrdering Facility: [facility] Address: [address] [place], [place] [phone] Performed By: #### 2 4323-8, 3084-1, ####[facility] [id number] [place] [id number] [place] Chloride [Moles/Vol] 107 mmol/L High 97-105 [facility] Comment on above: Order Comment: Speci men Type: BLOOD SPECIMENOrdering Facility: [facility] Address: [address] [place] [address] Performed By: #### 2 4323-8, 3084-1, ####[facility] [id number] [place] [address] [place] CO2 [Moles/Vol] 25 mmol/L Normal 22-30 [facility] Comment on above: Order Comment: Speci men Type: BLOOD SPECIMENOrdering Facility: [facility] Address: [address] [place] [address] Performed By: #### 2 4323-8, 3084-, ####[facility] [id number] [place] [address] [place] Creatinine [Mass/Vol] 1.24 mg/dL High 0.73-1.22 [facility] Comment on above: Order Comment: Speci men Type: BLOOD SPECIMENOrdering Facility: [facility] Address: [address] [place] [address] Performed By: #### 2 4323-8, 3083-03, ####[facility] [id number] [address] OF [place] ESTIMATED GLOMERULAR FILTRATION RATE 68 mL/min/1.73m??? Normal >=60 [facility] Comment on above: Order Comment: Speci men Type: BLOOD SPECIMENOrdering Facility: [facility] Address: [address] [place] [address] Result Comment: Laurita mated Glomerular Filtration Rate (eGFR) is calculated using the 2020 CKD-EPI creatinine equation. This equation utilizes serum creatinine, sex, and age as parameters. The creatinine assay has traceable calibration to isotope dilution-mass spectrometry. Refer to KDIGO guidelines for clinical interpretation. In patients with unstable renal function, e.g. those with acute kidney injury, the eGFR may not accurately reflect actual GFR. Performed By: #### 2 4323-8, 3084-1, ####[facility] [id number] [address] [id number], [place] [address] [place] Glucose [Mass/Vol] 121 mg/dL High 74-99 [facility] Comment on above: Order Comment: Speci men Type: BLOOD SPECIMENOrdering Facility: [facility] Address: [address] [place], [place] [address] [phone] Result Comment: The [place] Diabetes Association (ADA) provides guidance for cutoff values for fasting glucose and random glucose. The ADA defines fasting as no caloric intake for at least 8 hours. Fasting plasma glucose results between 100 to 125 mg/dL indicate increased risk for diabetes (prediabetes).Fasting plasma glucose results greater than or equal to 126 mg/dL meet the criteria for diagnosis of diabetes. In the absence of unequivocal hyperglycemia, results should be confirmed by repeat testing. In a patient with classic symptoms of hyperglycemia or hyperglycemic crisis, random plasma glucose results greater than or equal to 200 mg/dL meet the criteria for diagnosis of diabetes.Reference: Standards of Medical Care in Diabetes 2016, [place] [employer]. Diabetes Care. 2016.39(Suppl 1). Performed By: #### 2 4323-8, 308-, ####[facility] [id number] [place] [address] [place] Potassium [Moles/Vol] 4.6 mmol/L Normal 3.7-5.1 [facility] Comment on above: Order Comment: Speci men Type: BLOOD SPECIMENOrdering Facility: [facility] Address: [address] [place], [place] [address] [address] Performed By: #### 2 4323-8, 30806-06, ####[facility] [id number] [place] [address] [place] Protein [Mass/Vol] 6.9 g/dL Normal 6.3-8.0 [facility] Comment on above: Order Comment: Speci men Type: BLOOD SPECIMENOrdering Facility: [facility] Address: [address] [place] [address] Performed By: #### 2 4323-8, 308-, ####[facility] [id number] [place] [address] [place] Sodium [Moles/Vol] 141 mmol/L Normal 136-144 [facility] Comment on above: Order Comment: Speci men Type: BLOOD SPECIMENOrdering Facility: [facility] Address: [address] [place] [address] Performed By: #### 2 4323-8, 3084-1, ####[facility] [id number] [place] [address] [place] Urea nitrogen [Mass/Vol] 20 mg/dL Normal 9-24 [facility] Comment on above: Order Comment: Speci men Type: BLOOD SPECIMENOrdering Facility: [facility] Address: [address] [place] [address] Performed By: #### 2 4323-8, 3084-1, ####[facility] [id number] [place] [address] [place] LDH SerPl-cCncon 08-06-2021 LDH [Catalytic activity/Vol] 260 U/L High 135-225 [facility] Comment on above: Order Comment: Speci men Type: BLOOD SPECIMENOrdering Facility: [facility] Address: [address] [place] [address] Performed By: #### 2 532-0 ####[facility] [id number] [place] [address] [place] Magnesium SerPl-mCncon 08-06 Magnesium [Mass/Vol] 2.4 mg/dL High 1.7-2.3 [facility] Comment on above: Order Comment: Speci men Type: BLOOD SPECIMENOrdering Facility: [facility] Address: [address] [place] [address] Performed By: #### 2 4323-8, 3084-1, ####[facility] [id number] [place] [address] [place] PT panel Coag (PPP)on 2021 INR Coag (PPP) [Relative time] 1.0 {INR} Normal 0.9-1.3 [facility] Comment on above: Order Comment: Spectricia gibson Type: BLOOD SPECIMENOrdering Facility: [facility] Address: [address] [place] [address] Result Comment: Constanza min K Antagonist (VKA) Therapeutic Range: INR 2 to 3 (Target INR of 2.5)Note: For patients treated with VKA drugs, such as warfarin, the [place] [employer] 2012 Guideline recommends a therapeutic INR range of 2 to 3 (target INR of 2.5). This recommendation includes high-risk patients with antiphospholipid syndrome with previous arterial or venous thromboembolism, current-generation mechanical or bioprosthetic aortic heart valve replacement.Note: Patients with mechanical aortic valve replacement and additional risk factors for thromboembolic events (atrial fibrillation, previous thromboembolism, LV dysfunction, hypercoagulable conditions) or an older generation mechanical AVR (i.e., ball in-Cage) or any mechanical MVR should have a INR therapeutic range of 2.5 to 3.5 (target INR of 3).Lars GH, et al. Chest 2012, 141:7S-47SNishimura RA, et al. [facility] 2017, 70: 252-289 Performed By: #### 3 4528-0, 02742-2 ####[facility] [id number] [place] [id number] [place] PT Coag (PPP) [Time] 10.7 s Normal 9.7-13.0 [facility] Comment on above: Order Comment: Aaliyah gibson Type: BLOOD SPECIMENOrdering Facility: [facility] Address: [address] [place] [phone] Performed By: #### 3 4528-0, 28573-0 ####[facility] [id number] [place] [address] [place] Phosphate SerPl-mCncon 06-01 -2022 Phosphate [Mass/Vol] 3.8 mg/dL Normal 2.7-4.8 [facility] Comment on above: Order Comment: Speci men Type: BLOOD SPECIMENOrdering Facility: [facility] Address: [address] [place] [address] Performed By: #### 2 777-1 ####[facility] [id number] [place] [address] [place] T3 FREE BLDon 08-06-2021 Free T3 [Mass/Vol] 2.9 pg/mL Normal 2.3-4.1 [facility] Comment on above: Order Comment: Speci men Type: BLOOD SPECIMENOrdering Facility: [facility] Address: [address] [place] [address] Performed By: #### F T4, FREET3 ####[facility] [id number] [place] [address] [place] T4 FREE/FREE THYROXon 2021 Free T4 [Mass/Vol] 1.0 ng/dL Normal 0.9-1.7 [facility] Comment on above: Order Comment: Speci men Type: BLOOD SPECIMENOrdering Facility: [facility] Address: [address] [place] [address] Performed By: #### F T4, FREET3 ####[facility] [id number] [place] [address] [place] TSH SerPl-aCncon 08-06-2021 TSH Qn 1.770 m[IU]/L Normal 0.270-4.20 0 [facility] Comment on above: Order Comment: Speci men Type: BLOOD SPECIMENOrdering Facility: [facility] Address: [address] [place], [place] [address] Performed By: #### 3 016-3 ####[facility] [id number] [address] OF [place] Urate SerPl-mCncon Urate [Mass/Vol] 7.2 mg/dL Normal 4.0-8.1 [facility] Comment on above: Order Comment: Speci men Type: BLOOD SPECIMENOrdering Facility: [facility] Address: [address] [place] [address] Performed By: #### 2 4323-8, 3084-1, 02006-9 ####[facility] [id number] [place] [address] [place] aPTT PPPon 08-06-2021 aPTT Coag (PPP) [Time] 28.8 s Normal 23.0-32.4 [facility] Comment on above: Order Comment: Speci men Type: BLOOD SPECIMENOrdering Facility: [facility] Address: [address] [place] [address] Performed By: #### 3 4528-0, 68547-6 ####[facility] [id number] [address] STATES OF [place] CNPNon 08-03-2021 CNPN Normal [facility] CNOVon 07-31-2021 CNOV Normal [facility] CNOV Normal [facility] NURSING PROGon 07-31-2021 NURSING PROG Normal [facility] CNPNon 07-30-2021 CNPN Normal [facility] CNPNon 07-29-2021 CNPN Normal [facility] CNPNon 07-25-2021 CNPN Normal [facility] CBC W Auto Differential pane l (Bld)on 07-24-2021 Basophils (Bld) [#/Vol] 0.04 10*3/uL Normal <0.11 [facility] Comment on above: Order Comment: Speci men Type: BLOOD SPECIMENOrdering Facility: [facility] Address: [address] [place] [address] Performed By: #### 5 7021-8 ####[facility] [id number] [address] STATES OF [facility] Basophils/100 WBC (Bld) 0.3 % Normal [facility] Comment on above: Order Comment: Speci men Type: BLOOD SPECIMENOrdering Facility: [facility] Address: [address] [place] [address] Performed By: #### 5 7021-8 ####[facility] [id number] [place] [address] [facility] Differential cell count method Nom (Bld) Auto Normal [facility] Comment on above: Order Comment: Speci men Type: BLOOD SPECIMENOrdering Facility: [facility] Address: [address] [place] [address] Performed By: #### 5 7021-8 ####[facility] [place] [id number] [place] [address] [place] Eosinophils (Bld) [#/Vol] 10*3/uL Normal <0.46 [facility] Comment on above: Order Comment: Speci men Type: BLOOD SPECIMENOrdering Facility: [facility] Address: [address] [place] [address] Performed By: #### 5 7021-8 ####[facility] [id number] [place] [address] Eosinophils/100 WBC (Bld) 0.1 % Normal [facility] Comment on above: Order Comment: Speci men Type: BLOOD SPECIMENOrdering Facility: [facility] Address: [address] [place] [address] Performed By: #### 5 7021-8 ####[facility] [place] [id number] [place] [address] [place] Erythrocyte distribution width (RBC) [Ratio] 15.9 % High 11.5-15.0 [facility] Comment on above: Order Comment: Speci men Type: BLOOD SPECIMENOrdering Facility: [facility] Address: [address] [place] [address] Performed By: #### 5 7021-8 ####[facility] [place] [id number] [place] [address] Hematocrit (Bld) [Volume fraction] 43.2 % Normal 39.0-51.0 [facility] Comment on above: Order Comment: Speci men Type: BLOOD SPECIMENOrdering Facility: [facility] Address: [address] [place] [address] Performed By: #### 5 7021-8 ####[facility] [id number] [place] [address] Hemoglobin (Bld) [Mass/Vol] 14.7 g/dL Normal 13.0-17.0 [facility] Comment on above: Order Comment: Speci men Type: BLOOD SPECIMENOrdering Facility: [facility] Address: [address] [place] [address] Performed By: #### 5 7021-8 ####[facility] [id number] [place] [address] IMMATURE GRAN % 0.9 % Normal [facility] Comment on above: Order Comment: Speci men Type: BLOOD SPECIMENOrdering Facility: [facility] Address: [address] [place], [place] [address] Performed By: #### 5 7021-8 ####[facility] [place] [id number] [place] [address] OF POP IMMATURE GRAN ABS 0.10 k/uL High <0.10 [facility] Comment on above: Order Comment: Speci men Type: BLOOD SPECIMENOrdering Facility: [facility] Address: [address] [place] [address] Performed By: #### 5 7021-8 ####[facility] [place] [id number] [place] [address] [place] Lymphocytes (Bld) [#/Vol] 2.16 10*3/uL Normal 1.00-4.00 [facility] Comment on above: Order Comment: Speci men Type: BLOOD SPECIMENOrdering Facility: [facility] Address: [address] [place] [address] Performed By: #### 5 7021-8 ####[facility] [id number] [place] [address] [place] Lymphocytes/100 WBC (Bld) 18.7 % Normal [facility] Comment on above: Order Comment: Speci men Type: BLOOD SPECIMENOrdering Facility: [facility] Address: [address] [place] [address] Performed By: #### 5 7021-8 ####[facility] [id number] [place] [address] [place] MCH (RBC) [Entitic mass] 29.9 pg Normal 26.0-34.0 [facility] Comment on above: Order Comment: Speci men Type: BLOOD SPECIMENOrdering Facility: [facility] Address: [address] [place] [address] Performed By: #### 5 7021-8 ####[facility] [id number] [place] [address] [place] MCHC (RBC) [Mass/Vol] 34.0 g/dL Normal 30.5-36.0 [facility] Comment on above: Order Comment: Speci men Type: BLOOD SPECIMENOrdering Facility: [facility] Address: [address] [place], [place] [address] Performed By: #### 5 7021-8 ####[facility] [id number] [address] STATES OF [place] MCV (RBC) [Entitic vol] 88.0 fL Normal 80.0-100.0 [facility] Comment on above: Order Comment: Speci men Type: BLOOD SPECIMENOrdering Facility: [facility] Address: [address] [place], [place] [address] Performed By: #### 5 7021-8 ####[facility] [id number] [place] [address] [place] Monocytes (Bld) [#/Vol] 0.79 10*3/uL Normal <0.87 [facility] Comment on above: Order Comment: Speci men Type: BLOOD SPECIMENOrdering Facility: [facility] Address: [address] [place], [place] [address] Performed By: #### 5 7021-8 ####[facility] [place] [id number] [place] [address] [place] Monocytes/100 WBC (Bld) 6.8 % Normal [facility] Comment on above: Order Comment: Speci men Type: BLOOD SPECIMENOrdering Facility: [facility] Address: [address] [place], [place] [address] Performed By: #### 5 7021-8 ####[facility] [place] [id number] [place] [address] [place] Neutrophils (Bld) [#/Vol] 8.45 10*3/uL High 1.45-7.50 [facility] Comment on above: Order Comment: Speci men Type: BLOOD SPECIMENOrdering Facility: [facility] Address: [address] [place], [place] [address] Performed By: #### 5 7021-8 ####[facility] [place] [id number] [place] [address] [place] Neutrophils/100 WBC (Bld) 73.2 % Normal [facility] Comment on above: Order Comment: Speci men Type: BLOOD SPECIMENOrdering Facility: [facility] Address: [address] [place], [place] [address] Performed By: #### 5 7021-8 ####[facility] [id number] [place] [address] [place] Nucleated RBC (Bld) [#/Vol] 10*3/uL Normal <0.01 [facility] Comment on above: Order Comment: Speci men Type: BLOOD SPECIMENOrdering Facility: [facility] Address: [address] [place] [address] Performed By: #### 5 7021-8 ####[facility] [id number] [place] [address] [place] Nucleated RBC/100 WBC (Bld) [Ratio] 0.0 /100 WBC Normal [facility] Comment on above: Order Comment: Speci men Type: BLOOD SPECIMENOrdering Facility: [facility] Address: [address] [place] [address] Performed By: #### 5 7021-8 ####[facility] [id number] [address] STATES OF [place] Platelet mean volume (Bld) [Entitic vol] 10.5 fL Normal 9.0-12.7 [facility] Comment on above: Order Comment: Speci men Type: BLOOD SPECIMENOrdering Facility: [facility] Address: [address] [place] [address] Performed By: #### 5 7021-8 ####[facility] [id number] [place] [address] [place] Platelets (Bld) [#/Vol] 241 10*3/uL Normal 150-400 [facility] Comment on above: Order Comment: Speci men Type: BLOOD SPECIMENOrdering Facility: [facility] Address: [address] [place] [address] Performed By: #### 5 7021-8 ####[facility] [id number] [address] [id number], [place] [address] [place] RBC (Bld) [#/Vol] 4.91 10*6/uL Normal 4.20-6.00 [facility] Comment on above: Order Comment: Speci men Type: BLOOD SPECIMENOrdering Facility: [facility] Address: [address] [place], [place] [address] Performed By: #### 5 7021-8 ####[facility] [id number] [place] [address] [facility] WBC (Bld) [#/Vol] 11.55 10*3/uL High 3.70-11.00 [facility] Comment on above: Order Comment: Speci men Type: BLOOD SPECIMENOrdering Facility: [facility] Address: [address] [place], [place] [address] Performed By: #### 5 7021-8 ####[facility] [id number] [address] STATES OF [place] CNNURSEon 07-24-2021 CNNURSE Normal [facility] CNOVSPon 07-24-2021 CNOVSP Normal [facility] CNPNon 07-24-2021 CNPN Normal [facility] Comprehensive metabolic 2000 panelon 07-24-2021 Albumin [Mass/Vol] 4.0 g/dL Normal 3.9-4.9 [facility] Comment on above: Order Comment: Speci men Type: BLOOD SPECIMENOrdering Facility: [facility] Address: [address] [place], [place] [address] Performed By: #### 2 4323-8, 63633-9, 3084-1 ####[facility] [id number] [address] STATES [place] ALP [Catalytic activity/Vol] 64 U/L Normal 38-113 [facility] Comment on above: Order Comment: Speci men Type: BLOOD SPECIMENOrdering Facility: [facility] Address: [address] [place], [place] [address] Performed By: #### 2 4323-8, 84492-1, 4- ####[facility] [id number] [place] [address] [place] ALT [Catalytic activity/Vol] 36 U/L Normal 10-54 [facility] Comment on above: Order Comment: Speci men Type: BLOOD SPECIMENOrdering Facility: [facility] Address: [address] [place], [place] [address] Performed By: #### 2 4323-8, 19052-1, 3083- ####[facility] [id number] [place] [address] [place] Anion gap [Moles/Vol] 11 mmol/L Normal 9-18 [facility] Comment on above: Order Comment: Speci men Type: BLOOD SPECIMENOrdering Facility: [facility] Address: [address] [place] [address] Performed By: #### 2 4323-8, , 3083-03 ####[facility] [id number] [address] [place] AST [Catalytic activity/Vol] 25 U/L Normal 14-40 [facility] Comment on above: Order Comment: Speci men Type: BLOOD SPECIMENOrdering Facility: [facility] Address: [address] [place], [place] [address] Result Comment: Resu lts may be falsely increased due to interference from hemolysis. Suggest reorder as clinically indicated. Performed By: #### 2 4323-8, 86960-5, 3083- ####[facility] [id number] [place] [id number] [place] Bilirubin [Mass/Vol] 0.2 mg/dL Normal 0.2-1.3 [facility] Comment on above: Order Comment: Speci men Type: BLOOD SPECIMENOrdering Facility: [facility] Address: [address] [place], [place] [address] Performed By: #### 2 4323-8, 28338-4, 4-1 ####[facility] [id number] [place] [address] [place] Calcium [Mass/Vol] 9.2 mg/dL Normal 8.5-10.2 [facility] Comment on above: Order Comment: Speci men Type: BLOOD SPECIMENOrdering Facility: [facility] Address: [address] [place], [place] [address] Performed By: #### 2 4323-8, 64424-9, 3083-1 ####[facility] [id number] [place] [address] [place] Chloride [Moles/Vol] 104 mmol/L Normal 97-105 [facility] Comment on above: Order Comment: Speci men Type: BLOOD SPECIMENOrdering Facility: [facility] Address: [address] [place], [place] [address] Performed By: #### 2 4323-8, 99304-5, 3083- ####[facility] [id number] [place] [address] [place] CO2 [Moles/Vol] 26 mmol/L Normal 22-30 [facility] Comment on above: Order Comment: Speci men Type: BLOOD SPECIMENOrdering Facility: [facility] Address: [address] [place], [place] [address] Performed By: #### 2 4323-8, 16181-4, 3083- ####[facility] [id number] [place] [id number] [place] Creatinine [Mass/Vol] 1.03 mg/dL Normal 0.73-1.22 [facility] Comment on above: Order Comment: Speci men Type: BLOOD SPECIMENOrdering Facility: [facility] Address: [address] [place], [place] [address] Performed By: #### 2 4323-8, , 3083-03 ####[facility] [id number] [place] [address] [place] ESTIMATED GLOMERULAR FILTRATION RATE 85 mL/min/1.73m??? Normal >=60 [facility] Comment on above: Order Comment: Aaliyah gibson Type: BLOOD SPECIMENOrdering Facility: [facility] Address: [address] [place], [place] [address] Result Comment: Laurita mated Glomerular Filtration Rate (eGFR) is calculated using the 2020 CKD-EPI creatinine equation. This equation utilizes serum creatinine, sex, and age as parameters. The creatinine assay has traceable calibration to isotope dilution-mass spectrometry. Refer to KDIGO guidelines for clinical interpretation. In patients with unstable renal function, e.g. those with acute kidney injury, the eGFR may not accurately reflect actual GFR. Performed By: #### 2 4323-8, , 3083-03 ####[facility] [id number] [place] [address] [place] Glucose [Mass/Vol] 103 mg/dL High 74-99 [facility] Comment on above: Order Comment: Aaliyah gibson Type: BLOOD SPECIMENOrdering Facility: [facility] Address: [address] [place], [place] [address] Result Comment: The [place] [employer] (ADA) provides guidance for cutoff values for fasting glucose and random glucose. The ADA defines fasting as no caloric intake for at least 8 hours. Fasting plasma glucose results between 100 to 125 mg/dL indicate increased risk for diabetes (prediabetes).Fasting plasma glucose results greater than or equal to 126 mg/dL meet the criteria for diagnosis of diabetes. In the absence of unequivocal hyperglycemia, results should be confirmed by repeat testing. In a patient with classic symptoms of hyperglycemia or hyperglycemic crisis, random plasma glucose results greater than or equal to 200 mg/dL meet the criteria for diagnosis of diabetes.Reference: Standards of Medical Care in Diabetes 2016, [place] [employer]. Diabetes Care. 2016.39(Suppl 1). Performed By: #### 2 4323-8, , 3083-03 ####[facility] [id number] [address] [address] [place] Potassium [Moles/Vol] 4.1 mmol/L Normal 3.7-5.1 [facility] Comment on above: Order Comment: Speci men Type: BLOOD SPECIMENOrdering Facility: [facility] Address: [address] [place], [place] [address] Performed By: #### 2 4323-8, , 3083-03 ####[facility] [id number] [place] [address] [place] Protein [Mass/Vol] 6.6 g/dL Normal 6.3-8.0 [facility] Comment on above: Order Comment: Speci men Type: BLOOD SPECIMENOrdering Facility: [facility] Address: [address] [place], [place] [address] Performed By: #### 2 4323-8, , 3083-03 ####[facility] [id number] [place] [address] [place] Sodium [Moles/Vol] 141 mmol/L Normal 136-144 [facility] Comment on above: Order Comment: Speci men Type: BLOOD SPECIMENOrdering Facility: [facility] Address: [address] [place] [address] Performed By: #### 2 4323-8, , 3083-03 ####[facility] [id number] [place] [id number] [place] Urea nitrogen [Mass/Vol] 22 mg/dL Normal 9-24 [facility] Comment on above: Order Comment: Speci men Type: BLOOD SPECIMENOrdering Facility: [facility] Address: [address] [place], [place] [address] Performed By: #### 2 4323-8, , 3083-03 ####[facility] [id number] [place] [address] [place] LDH SerPl-cCncon 07-24-2021 LDH [Catalytic activity/Vol] 217 U/L Normal 135-225 [facility] Comment on above: Order Comment: Aaliyah gibson Type: BLOOD SPECIMENOrdering Facility: [facility] Address: [address] [place] [address] Performed By: #### 2 532-0 ####[facility] [id number] [place] [address] [place] Magnesium SerPl-mCncon 07-24 Magnesium [Mass/Vol] 2.3 mg/dL Normal 1.7-2.3 [facility] Comment on above: Order Comment: Aaliyah gibson Type: BLOOD SPECIMENOrdering Facility: [facility] Address: [address] [place] [address] Performed By: #### 2 4323-8, 66106-4, 3084-1 ####[facility] [id number] [address] [place] PT panel Coag (PPP)on 2021 INR Coag (PPP) [Relative time] 1.0 {INR} Normal 0.9-1.3 [facility] Comment on above: Order Comment: Aaliyah gibson Type: BLOOD SPECIMENOrdering Facility: [facility] Address: [address] [place] [address] Result Comment: Constanza min K Antagonist (VKA) Therapeutic Range: INR 2 to 3 (Target INR of 2.5)Note: For patients treated with VKA drugs, such as warfarin, the [place] [employer] 2012 Guideline recommends a therapeutic INR range of 2 to 3 (target INR of 2.5). This recommendation includes high-risk patients with antiphospholipid syndrome with previous arterial or venous thromboembolism, current-generation mechanical or bioprosthetic aortic heart valve replacement.Note: Patients with mechanical aortic valve replacement and additional risk factors for thromboembolic events (atrial fibrillation, previous thromboembolism, LV dysfunction, hypercoagulable conditions) or an older generation mechanical AVR (i.e., ball in-Cage) or any mechanical MVR should have a INR therapeutic range of 2.5 to 3.5 (target INR of 3).Lars GH, et al. Chest 2012, 141:7S-47SCaitie RA, et al. [facility] 2017, 70: 252-289 Performed By: #### 3 4528-0, 08409-4 ####[facility] [id number] [place] [address] [place] PT Coag (PPP) [Time] 10.5 s Normal 9.7-13.0 [facility] Comment on above: Order Comment: Speci men Type: BLOOD SPECIMENOrdering Facility: [facility] Address: [address] [place] [address] Performed By: #### 3 4528-0, 17735-5 ####[facility] [id number] [place] [address] [place] Phosphate SerPl-mCncon 07-24 Phosphate [Mass/Vol] 3.1 mg/dL Normal 2.7-4.8 [facility] Comment on above: Order Comment: Speci men Type: BLOOD SPECIMENOrdering Facility: [facility] Address: [address] [place] [address] Performed By: #### 2 777-1 ####[facility] [id number] [place] [address] [place] Urate SerPl-mCncon Urate [Mass/Vol] 6.4 mg/dL Normal 4.0-8.1 [facility] Comment on above: Order Comment: Speci men Type: BLOOD SPECIMENOrdering Facility: [facility] Address: [address] [place] [address] Performed By: #### 2 4323-8, 98390-3, 3084-1 ####[facility] [id number] [place] [address] [place] aPTT PPPon 07-24-2021 aPTT Coag (PPP) [Time] 27.5 s Normal 23.0-32.4 [facility] Comment on above: Order Comment: Speci men Type: BLOOD SPECIMENOrdering Facility: [facility] Address: [address] [place] [address] Performed By: #### 3 4528-0, 68184-4 ####[facility] [id number] [place] [address] [place] CNPNon 07-23-2021 CNPN Normal [facility] ACTIVATED PTTon 07-21-2021 aPTT Coag (PPP) [Time] 29.1 s 23.0 - 32.4 sec [facility] CBC W Auto Differential pane l (Bld)on 07-21-2021 Basophils (Bld) [#/Vol] 0.04 10*3/uL Normal <0.11 [facility] Comment on above: Order Comment: Speci men Type: BLOOD SPECIMENOrdering Facility: [facility] Address: [address] [place] [address] Performed By: #### 5 7021-8 ####[facility] [id number] [address] [place] Basophils/100 WBC (Bld) 0.5 % Normal C [facility] Comment on above: Order Comment: Speci men Type: BLOOD SPECIMENOrdering Facility: [facility] Address: [address] [place] [address] Performed By: #### 5 7021-8 ####[facility] [place] [id number] [place] [address] [place] Differential cell count method Nom (Bld) Auto Normal [facility] Comment on above: Order Comment: Speci men Type: BLOOD SPECIMENOrdering Facility: [facility] Address: [address] [place] [address] Performed By: #### 5 7021-8 ####[facility] [id number] [place] [address] [place] Eosinophils (Bld) [#/Vol] 0.05 10*3/uL Normal <0.46 [facility] Comment on above: Order Comment: Speci men Type: BLOOD SPECIMENOrdering Facility: [facility] Address: [address] [place], [place] [address] Performed By: #### 5 7021-8 ####[facility] [place] [id number] [place] [address] [facility] Eosinophils/100 WBC (Bld) 0.7 % Normal [facility] Comment on above: Order Comment: Speci men Type: BLOOD SPECIMENOrdering Facility: [facility] Address: [address] [place], [place] [address] Performed By: #### 5 7021-8 ####[facility] [id number] [place] [address] [place] Erythrocyte distribution width (RBC) [Ratio] 15.5 % High 11.5-15.0 [facility] Comment on above: Order Comment: Speci men Type: BLOOD SPECIMENOrdering Facility: [facility] Address: [address] [place], [place] [address] Performed By: #### 5 7021-8 ####[facility] [id number] [place] [address] [place] Hematocrit (Bld) [Volume fraction] 45.5 % Normal 39.0-51.0 [facility] Comment on above: Order Comment: Speci men Type: BLOOD SPECIMENOrdering Facility: [facility] Address: [address] [place], [place] [address] Performed By: #### 5 7021-8 ####[facility] [id number] [place] [address] [place] Hemoglobin (Bld) [Mass/Vol] 15.1 g/dL Normal 13.0-17.0 [facility] Comment on above: Order Comment: Speci men Type: BLOOD SPECIMENOrdering Facility: [facility] Address: [address] [place] [address] Performed By: #### 5 7021-8 ####[facility] [id number] [place] [address] [facility] IMMATURE GRAN % 0.8 % Normal [facility] Comment on above: Order Comment: Speci men Type: BLOOD SPECIMENOrdering Facility: [facility] Address: [address] [place] [address] Performed By: #### 5 7021-8 ####[facility] [id number] [place] [address] [facility] IMMATURE GRAN ABS 0.06 k/uL Normal <0.10 [facility] Comment on above: Order Comment: Speci men Type: BLOOD SPECIMENOrdering Facility: [facility] Address: [address] [place] [address] Performed By: #### 5 7021-8 ####[facility] [id number] [place] [address] [place] Lymphocytes (Bld) [#/Vol] 2.22 10*3/uL Normal 1.00-4.00 [facility] Comment on above: Order Comment: Speci men Type: BLOOD SPECIMENOrdering Facility: [facility] Address: [address] [place] [address] Performed By: #### 5 7021-8 ####[facility] [id number] [place] [address] Lymphocytes/100 WBC (Bld) 28.9 % Normal [facility] Comment on above: Order Comment: Speci men Type: BLOOD SPECIMENOrdering Facility: [facility] Address: [address] [place], [place] [address] Performed By: #### 5 7021-8 ####[facility] [id number] [place] [address] MCH (RBC) [Entitic mass] 30.1 pg Normal 26.0-34.0 [facility] Comment on above: Order Comment: Speci men Type: BLOOD SPECIMENOrdering Facility: [facility] Address: [address] [place], [place] [address] Performed By: #### 5 7021-8 ####[facility] [id number] [place] [address] MCHC (RBC) [Mass/Vol] 33.2 g/dL Normal 30.5-36.0 [facility] Comment on above: Order Comment: Speci men Type: BLOOD SPECIMENOrdering Facility: [facility] Address: [address] [place], [place] [address] Performed By: #### 5 7021-8 ####[facility] [id number] [place] [address] MCV (RBC) [Entitic vol] 90.6 fL Normal 80.0-100.0 [facility] Comment on above: Order Comment: Speci men Type: BLOOD SPECIMENOrdering Facility: [facility] Address: [address] [place], [place] [address] Performed By: #### 5 7021-8 ####[facility] [id number] [place] [address] Monocytes (Bld) [#/Vol] 0.52 10*3/uL Normal <0.87 [facility] Comment on above: Order Comment: Speci men Type: BLOOD SPECIMENOrdering Facility: [facility] Address: [address] [place], [place] [address] Performed By: #### 5 7021-8 ####[facility] [id number] [place] [address] [place] Monocytes/100 WBC (Bld) 6.8 % Normal [facility] Comment on above: Order Comment: Speci men Type: BLOOD SPECIMENOrdering Facility: [facility] Address: [address] [place] [address] Performed By: #### 5 7021-8 ####[facility] [id number] [place] [address] [place] Neutrophils (Bld) [#/Vol] 4.79 10*3/uL Normal 1.45-7.50 [facility] Comment on above: Order Comment: Speci men Type: BLOOD SPECIMENOrdering Facility: [facility] Address: [address] [place] [address] Performed By: #### 5 7021-8 ####[facility] [id number] [place] [address] [place] Neutrophils/100 WBC (Bld) 62.3 % Normal [facility] Comment on above: Order Comment: Speci men Type: BLOOD SPECIMENOrdering Facility: [facility] Address: [address] [place] [address] Performed By: #### 5 7021-8 ####[facility] [id number] [place] [address] [place] Nucleated RBC (Bld) [#/Vol] 10*3/uL Normal <0.01 [facility] Comment on above: Order Comment: Speci men Type: BLOOD SPECIMENOrdering Facility: [facility] Address: [address] [place], [place] [address] Performed By: #### 5 7021-8 ####[facility] [id number] [place] [address] [place] Nucleated RBC/100 WBC (Bld) [Ratio] 0.0 /100 WBC Normal [facility] Comment on above: Order Comment: Speci men Type: BLOOD SPECIMENOrdering Facility: [facility] Address: [address] [place], [place] [address] Performed By: #### 5 7021-8 ####[facility] [id number] [place] [address] [place] Platelet mean volume (Bld) [Entitic vol] 10.8 fL Normal 9.0-12.7 [facility] Comment on above: Order Comment: Speci men Type: BLOOD SPECIMENOrdering Facility: [facility] Address: [address] [place] [address] Performed By: #### 5 7021-8 ####[facility] [id number] [place] [address] [place] Platelets (Bld) [#/Vol] 245 10*3/uL Normal 150-400 [facility] Comment on above: Order Comment: Speci men Type: BLOOD SPECIMENOrdering Facility: [facility] Address: [address] [place], [place] [address] Performed By: #### 5 7021-8 ####[facility] [id number] [place] [address] [place] RBC (Bld) [#/Vol] 5.02 10*6/uL Normal 4.20-6.00 [facility] Comment on above: Order Comment: Speci men Type: BLOOD SPECIMENOrdering Facility: [facility] Address: [address] [place], [place] [address] Performed By: #### 5 7021-8 ####[facility] [id number] [place] [address] [place] WBC (Bld) [#/Vol] 7.68 10*3/uL Normal 3.70-11.00 [facility] Comment on above: Order Comment: Speci men Type: BLOOD SPECIMENOrdering Facility: [facility] Address: [address] [place] [id number] Performed By: #### 5 7021-8 ####[facility] [id number] [place] [address] [place] Abs Immature Gran 0.06 k/uL <0.10 k/uL [facility] Basophils (Bld) [#/Vol] 0.04 10*3/uL <0.11 k/uL [facility] Basophils/100 WBC (Bld) 0.5 % C [facility] Differential cell count method Nom (Bld) Auto [facility] Eosinophils (Bld) [#/Vol] 0.05 10*3/uL <0.46 k/uL [facility] Eosinophils/100 WBC (Bld) 0.7 % [facility] Erythrocyte distribution width (RBC) [Ratio] 15.5 % High 11.5 - 15.0 % [facility] Hematocrit (Bld) [Volume fraction] 45.5 % 39.0 - 51.0 % [facility] Hemoglobin (Bld) [Mass/Vol] 15.1 g/dL 13.0 - 17.0 g/dL [facility] Immature Gran % 0.8 % [facility] Lymphocytes (Bld) [#/Vol] 2.22 10*3/uL 1.00 - 4.00 k/uL [facility] Lymphocytes/100 WBC (Bld) 28.9 % [facility] MCH (RBC) [Entitic mass] 30.1 pg 26.0 - 34.0 pg [facility] MCHC (RBC) [Mass/Vol] 33.2 g/dL 30.5 - 36.0 g/dL [facility] MCV (RBC) [Entitic vol] 90.6 fL 80.0 - 100.0 fL [facility] Monocytes (Bld) [#/Vol] 0.52 10*3/uL <0.87 k/uL [facility] Monocytes/100 WBC (Bld) 6.8 % C [facility] Neutrophils (Bld) [#/Vol] 4.79 10*3/uL 1.45 - 7.50 k/uL [facility] Neutrophils/100 WBC (Bld) 62.3 % [facility] Nucleated RBC (Bld) [#/Vol] 10*3/uL <0.01 k/uL [facility] Nucleated RBC/100 WBC (Bld) [Ratio] 0.0 /100 WBC [facility] Platelet mean volume (Bld) [Entitic vol] 10.8 fL 9.0 - 12.7 fL [facility] Platelets (Bld) [#/Vol] 245 10*3/uL 150 - 400 k/uL [facility] RBC (Bld) [#/Vol] 5.02 10*6/uL 4.20 - 6.00 m/uL [facility] WBC (Bld) [#/Vol] 7.68 10*3/uL 3.70 - 11.00 k/uL [facility] CNNURSEon 07-21-2021 CNNURSE Normal [facility] CNPNon 07-21-2021 CNPN Normal [facility] CT CHEST W IVCONon CT CHEST W IVCON Normal [facility] Comprehensive metabolic 2000 panelon 07-21-2021 Albumin [Mass/Vol] 4.0 g/dL Normal 3.9-4.9 [facility] Comment on above: Order Comment: Speci men Type: BLOOD SPECIMENOrdering Facility: [facility] Address: [address] [place] [address] Performed By: #### 1 9123-9, 13532-1, 3083-1 ####[facility] [id number] [address] [place] [address] [facility] ALP [Catalytic activity/Vol] 57 U/L Normal 38-113 [facility] Comment on above: Order Comment: Speci men Type: BLOOD SPECIMENOrdering Facility: [facility] Address: [address] [place] [address] Performed By: #### 1 9123-9, 90089-0, 3083-1 ####[facility] [id number] [address] [place] ALT [Catalytic activity/Vol] 26 U/L Normal 10-54 [facility] Comment on above: Order Comment: Speci men Type: BLOOD SPECIMENOrdering Facility: [facility] Address: [address] [place], [place] [address] Performed By: #### 1 9123-9, 30979-1, 3083-1 ####[facility] [facility] [id number] [place] [address] [place] Anion gap [Moles/Vol] 10 mmol/L Normal 9-18 [facility] Comment on above: Order Comment: Speci men Type: BLOOD SPECIMENOrdering Facility: [facility] Address: [address] [place], [place] [address] Performed By: #### 1 9123-9, 73551-8, 3083-1 ####[facility] [id number] [place] [address] [place] AST [Catalytic activity/Vol] 18 U/L Normal 14-40 [facility] Comment on above: Order Comment: Speci men Type: BLOOD SPECIMENOrdering Facility: [facility] Address: [address] [place], [place] [address] Performed By: #### 1 9123-9, 37216-5, 3083-1 ####[facility] [id number] [place] [address] [place] Bilirubin [Mass/Vol] 0.5 mg/dL Normal 0.2-1.3 [facility] Comment on above: Order Comment: Speci men Type: BLOOD SPECIMENOrdering Facility: [facility] Address: [address] [place], [place] [address] Performed By: #### 1 9123-9, 91732-0, 308-1 ####[facility] [id number] [place] [address] [place] Calcium [Mass/Vol] 9.4 mg/dL Normal 8.5-10.2 [facility] Comment on above: Order Comment: Speci men Type: BLOOD SPECIMENOrdering Facility: [facility] Address: [address] [place] [address] Performed By: #### 1 9123-9, 25827-8, 3084-1 ####[facility] [id number] [place] [address] [place] Chloride [Moles/Vol] 102 mmol/L Normal 97-105 [facility] Comment on above: Order Comment: Speci men Type: BLOOD SPECIMENOrdering Facility: [facility] Address: [address] [place], [place] [address] Performed By: #### 1 9123-9, 21569-5, 3084-1 ####[facility] [id number] [place] [address] [place] CO2 [Moles/Vol] 28 mmol/L Normal 22-30 [facility] Comment on above: Order Comment: Speci men Type: BLOOD SPECIMENOrdering Facility: [facility] Address: [address] [place], [place] [address] Performed By: #### 1 9123-9, 50133-7, 3084-1 ####[facility] [id number] [place] [address] [place] Creatinine [Mass/Vol] 1.12 mg/dL Normal 0.73-1.22 [facility] Comment on above: Order Comment: Speci men Type: BLOOD SPECIMENOrdering Facility: [facility] Address: [address] [place], [place] [address] Performed By: #### 1 9123-9, 50500-3, 3084-1 ####[facility] [id number] [place] [address] [place] ESTIMATED GLOMERULAR FILTRATION RATE 77 mL/min/1.73m??? Normal >=60 [facility] Comment on above: Order Comment: Speci men Type: BLOOD SPECIMENOrdering Facility: [facility] Address: [address] [place], [place] [address] Result Comment: Laurita mated Glomerular Filtration Rate (eGFR) is calculated using the 2020 CKD-EPI creatinine equation. This equation utilizes serum creatinine, sex, and age as parameters. The creatinine assay has traceable calibration to isotope dilution-mass spectrometry. Refer to KDIGO guidelines for clinical interpretation. In patients with unstable renal function, e.g. those with acute kidney injury, the eGFR may not accurately reflect actual GFR. Performed By: #### 1 9123-9, 17017-7, 3083- ####[facility] [id number] [place] [address] [place] Glucose [Mass/Vol] 114 mg/dL High 74-99 [facility] Comment on above: Order Comment: Aaliyah gibson Type: BLOOD SPECIMENOrdering Facility: [facility] Address: [address] [place] [address] Result Comment: The [place] Diabetes Association (ADA) provides guidance for cutoff values for fasting glucose and random glucose. The ADA defines fasting as no caloric intake for at least 8 hours. Fasting plasma glucose results between 100 to 125 mg/dL indicate increased risk for diabetes (prediabetes).Fasting plasma glucose results greater than or equal to 126 mg/dL meet the criteria for diagnosis of diabetes. In the absence of unequivocal hyperglycemia, results should be confirmed by repeat testing. In a patient with classic symptoms of hyperglycemia or hyperglycemic crisis, random plasma glucose results greater than or equal to 200 mg/dL meet the criteria for diagnosis of diabetes.Reference: Standards of Medical Care in Diabetes 2016, [place] [employer] Association. Diabetes Care. 2016.39(Suppl 1). Performed By: #### 1 9123-9, 02182-6, 3083-03 ####[facility] [id number] [place] [address] [place] Potassium [Moles/Vol] 3.5 mmol/L Low 3.7-5.1 [facility] Comment on above: Order Comment: Aaliyah gibson Type: BLOOD SPECIMENOrdering Facility: [facility] Address: [address] [phone] Performed By: #### 1 9123-9, 14305-4, 3084-1 ####[facility] [id number] [place] [address] [place] Protein [Mass/Vol] 6.8 g/dL Normal 6.3-8.0 [facility] Comment on above: Order Comment: Speci men Type: BLOOD SPECIMENOrdering Facility: [facility] Address: [address] [place] [address] Performed By: #### 1 9123-9, 03393-5, 3084-1 ####[facility] [id number] [place] [address] [place] Sodium [Moles/Vol] 140 mmol/L Normal 136-144 [facility] Comment on above: Order Comment: Speci men Type: BLOOD SPECIMENOrdering Facility: [facility] Address: [address] [place] [address] Performed By: #### 1 9123-9, 37465-7, 4-1 ####[facility] [id number] [place] [address] [place] Urea nitrogen [Mass/Vol] 20 mg/dL Normal 9-24 [facility] Comment on above: Order Comment: Speci men Type: BLOOD SPECIMENOrdering Facility: [facility] Address: [address] [place] [address] Performed By: #### 1 9123-9, 44775-9, 3084-1 ####[facility] [id number] [place] [address] [place] Albumin [Mass/Vol] 4.0 g/dL 3.9 - 4.9 g/dL [facility] ALP [Catalytic activity/Vol] 57 U/L 38 - 113 U/L [facility] ALT [Catalytic activity/Vol] 26 U/L 10 - 54 U/L [facility] Anion gap [Moles/Vol] 10 mmol/L 9 - 18 mmol/L [facility] AST [Catalytic activity/Vol] 18 U/L 14 - 40 U/L [facility] Bilirubin [Mass/Vol] 0.5 mg/dL 0.2 - 1 .3 mg/dL [facility] Calcium [Mass/Vol] 9.4 mg/dL 8.5 - 10. 2 mg/dL [facility] Chloride [Moles/Vol] 102 mmol/L 97 - 10 5 mmol/L [facility] CO2 [Moles/Vol] 28 mmol/L 22 - 30 mmol/L [facility] Creatinine [Mass/Vol] 1.12 mg/dL 0.73 - 1.22 mg/dL [facility] Estimated Glomerular Filtration Rate 77 mL/min/1.73m >=60 mL/min/1.7 3m [facility] Glucose [Mass/Vol] 114 mg/dL High 74 - 99 mg/dL [facility] Potassium [Moles/Vol] 3.5 mmol/L Low 3.7 - 5.1 mmol/L [facility] Protein [Mass/Vol] 6.8 g/dL 6.3 - 8.0 g/dL [facility] Sodium [Moles/Vol] 140 mmol/L 136 - 144 mmol/L [facility] Urea nitrogen [Mass/Vol] 20 mg/dL 9 - 24 mg/dL [facility] LD LACTATE DEHYDROon 022 LDH [Catalytic activity/Vol] 201 U/L 135 - 225 U/L [facility] LDH SerPl-cCncon 07-21-2021 LDH [Catalytic activity/Vol] 201 U/L Normal 135-225 [facility] Comment on above: Order Comment: Speci men Type: BLOOD SPECIMENOrdering Facility: [facility] Address: [address] [place] [address] Performed By: #### 2 532-0 ####[facility] [id number] [place] [address] [place] MAGNESIUM BLDon 07-21-2021 Magnesium [Mass/Vol] 2.1 mg/dL 1.7 - 2 .3 mg/dL [facility] MRI BRAIN WO/W IVCONon 07-21 MRI BRAIN WO/W IVCON Normal [facility] Magnesium SerPl-mCncon 07-21 Magnesium [Mass/Vol] 2.1 mg/dL Normal 1.7-2.3 [facility] Comment on above: Order Comment: Aaliyah gibson Type: BLOOD SPECIMENOrdering Facility: [facility] Address: [address] [place], [place] [phone] Performed By: #### 1 9123-9, 58005-1, 3084-1 ####[facility] [id number] [address] [place] [facility] PHOSPHORUS INORGANICon 07-21 Phosphate [Mass/Vol] 3.9 mg/dL 2.7 - 4 .8 mg/dL [facility] PT panel Coag (PPP)on 2021 INR Coag (PPP) [Relative time] 1.0 {INR} Normal 0.9-1.3 [facility] Comment on above: Order Comment: Aaliyah gibson Type: BLOOD SPECIMENOrdering Facility: [facility] Address: [address] [place] [address] Result Comment: Constanza min K Antagonist (VKA) Therapeutic Range: INR 2 to 3 (Target INR of 2.5)Note: For patients treated with VKA drugs, such as warfarin, the [place] [employer] 2012 Guideline recommends a therapeutic INR range of 2 to 3 (target INR of 2.5). This recommendation includes high-risk patients with antiphospholipid syndrome with previous arterial or venous thromboembolism, current-generation mechanical or bioprosthetic aortic heart valve replacement.Note: Patients with mechanical aortic valve replacement and additional risk factors for thromboembolic events (atrial fibrillation, previous thromboembolism, LV dysfunction, hypercoagulable conditions) or an older generation mechanical AVR (i.e., ball in-Cage) or any mechanical MVR should have a INR therapeutic range of 2.5 to 3.5 (target INR of 3).Lars GH, et al. Chest 2012, 141:7S-47SNishimkhalida RA, et al. [facility] 2017, 70: 252-289 Performed By: #### 3 4528-0, 03915-5 ####[facility] [id number] [place] PT Coag (PPP) [Time] 10.9 s Normal 9.7-13.0 [facility] Comment on above: Order Comment: Speci men Type: BLOOD SPECIMENOrdering Facility: [facility] Address: [address] [place] [address] Performed By: #### 3 4528-0, 36684-9 ####[facility] [id number] [place] [address] [place] INR Coag (PPP) [Relative time] 1.0 {INR} 0.9 - 1.3 [facility] PT Coag (PPP) [Time] 10.9 s 9.7 - 1 3.0 sec [facility] Phosphate SerPl-mCncon 07-21 Phosphate [Mass/Vol] 3.9 mg/dL Normal 2.7-4.8 [facility] Comment on above: Order Comment: Speci men Type: BLOOD SPECIMENOrdering Facility: [facility] Address: [address] [place] [address] Performed By: #### 2 777-1 ####[facility] [id number] [place] [address] [place] T3 FREE BLDon 07-21-2021 Free T3 [Mass/Vol] 2.8 pg/mL Normal 2.3-4.1 [facility] Comment on above: Order Comment: Speci men Type: BLOOD SPECIMENOrdering Facility: [facility] Address: [address] [place], [place] [address] Performed By: #### F T4, FREET3 ####[facility] [id number] [place] [address] [place] T4 FREE/FREE THYROXon 2021 Free T4 [Mass/Vol] 1.1 ng/dL Normal 0.9-1.7 [facility] Comment on above: Order Comment: Speci men Type: BLOOD SPECIMENOrdering Facility: [facility] Address: [address] [place] [address] Performed By: #### F T4, FREET3 ####[facility] [id number] [place] [address] [place] TSH BLDon 07-21-2021 TSH Qn 2.120 m[IU]/L 0.270 - 4.200 mIU/L [facility] TSH SerPl-aCncon 07-21-2021 TSH Qn 2.120 m[IU]/L Normal 0.270-4.20 0 [facility] Comment on above: Order Comment: Speci men Type: BLOOD SPECIMENOrdering Facility: [facility] Address: [address] [place], [place] [address] Performed By: #### 3 016-3 ####[facility] [id number] [place] [address] [place] URIC ACID BLOODon 07-21-2021 Urate [Mass/Vol] 8.3 mg/dL High 4.0 - 8.1 mg/dL [facility] Urate SerPl-mCncon Urate [Mass/Vol] 8.3 mg/dL High 4.0-8.1 [facility] Comment on above: Order Comment: Speci men Type: BLOOD SPECIMENOrdering Facility: [facility] Address: [address] [place] [address] Performed By: #### 1 9123-9, 74706-7, 3084-1 ####[facility] [id number] [place] [address] [place] aPTT PPPon 07-21-2021 aPTT Coag (PPP) [Time] 29.1 s Normal 23.0-32.4 [facility] Comment on above: Order Comment: Speci men Type: BLOOD SPECIMENOrdering Facility: [facility] Address: [address] [place] [address] Performed By: #### 3 4528-0, 75456-0 ####[facility] [id number] [place] [address] [place] CNOVSPon 07-15-2021 CNOVSP Normal [facility] MRI KIDNEY WO/W IVCONon 05-1 MRI KIDNEY WO/W IVCON Invalid Interpretation Code [facility] CNOVSPon 07-14-2021 CNOVSP Normal [facility] CNPNon 07-11-2021 CNPN Normal [facility] CNNURSEon 07-08-2021 CNNURSE Normal [facility] CNPNon 07-07-2021 CNPN Normal [facility] CNOVSPon 07-02-2021 CNOVSP Normal [facility] BRIEF OP NOTon 07-01-2021 BRIEF OP NOT Normal [facility] CT BIOPSY CHEST WALLon 07-01 CT BIOPSY CHEST WALL Normal [facility] HISTORY PHYSICALon HISTORY PHYSICAL Normal [facility] NURSING PROGon 07-01-2021 NURSING PROG Normal [facility] PT EDon 07-01-2021 PT ED Normal [facility] SURGICAL PATHOLOGYon 022 CASE REPORT Normal [facility] Comment on above: Order Comment: Aaliyah gibson Type: TISSUE SPECIMENOrdering Facility: [facility] Address: [address] [place], [place] [phone] Result Comment: Surg [facility] Pathology Report Case: [id number] Provider: Anne-Marie Chaparro MD Collected: 07/01/2021 08:31 AMOrdering Location: [place] [address] Received: 07/01/2021 01:44 PMPathologist: LAVINIA Hatchpecimen: SOFT TISSUE MASS BIOPSY, right chest wall mass - 4 passes, 4 cores Performed By: #### S ####[facility] [id number] [place] [address] [place] CLINICAL HISTORY right renal mass wit h right chest wall mass Normal [facility] Comment on above: Order Comment: Aaliyah gibson Type: TISSUE SPECIMENOrdering Facility: [facility] Address: [address] [place] [address] Performed By: #### S ####[facility] [id number] [address] DIAGNOSIS COMMENT Normal [facility] Comment on above: Order Comment: Speci men Type: TISSUE SPECIMENOrdering Facility: [facility] Address: [address] [place] [address] Result Comment: Tumo r cells are strongly and diffusely positive for PAX-8, CAM 5.2 and CA9. The overall morphology and immunoprofile support the above diagnosis.Laboratory Developed Test (LDT) Disclaimer:Performance characteristics of immunohistochemical, immunofluorescent and chromogenic in-situ hybridization tests have been determined by the performing laboratory within [facility]???s [facility] Pathology and Laboratory Medicine [place] ([facility], [facility], [facility] or [facility]) in a manner consistent with CLIA requirements. One or more of these tests have not been cleared or approved by the FDA. [facility] is regulated under CLIA as qualified to perform high-complexity testing. These tests are used for clinical purposes. They should not be regarded as investigational or for research. Positive and negative controls stain appropriately. Performed By: #### S ####[facility] [id number] [address] FINAL DIAGNOSIS Normal [facility] Comment on above: Order Comment: Speci men Type: TISSUE SPECIMENOrdering Facility: [facility] Address: [address] [place] [address] Result Comment: A. S oft tissue, right chest wall mass, core needle biopsy:- Metastatic renal cell carcinoma, clear cell type. See comment.CHRISTIANO/TERA/hi 07/04/2021 Performed By: #### S ####[facility] [id number] [address] FINAL PERFORMING LAB Normal [facility] Comment on above: Order Comment: Speci men Type: TISSUE SPECIMENOrdering Facility: [facility] Address: [address] [place] [address] Result Comment: Diag nostic interpretation performed at [facility], [address] [place] [address] CLIA# [id number] Director: Russ Madera M.D. Performed By: #### S ####[facility] [id number] [place] [address] [place] GROSS DESCRIPTION Normal [facility] Comment on above: Order Comment: Speci men Type: TISSUE SPECIMENOrdering Facility: [facility] Address: [address] [place] [address] Result Comment: A. S OFT TISSUE MASS BIOPSY.Received in formalin are multiple segments of cylindrical tissue 1.0 x 0.2 x 0.1 cm, short-red and of a friable consistency. Totally submitted in one cassette.HMM July 01, 2021 5:56 PMGross examination performed at [facility], [address] [place] [address] Performed By: #### S ####[facility] [id number] [place] [address] [place] NM BONE WHOLE BODYon 022 NM BONE WHOLE BODY Normal [facility] PT panel Coag (PPP)on 2021 INR Coag (PPP) [Relative time] 1.0 {INR} Normal 0.9-1.3 [facility] Comment on above: Order Comment: Speci men Type: BLOOD SPECIMENOrdering Facility: [facility] Address: [address] [place] [address] Result Comment: Constanza min K Antagonist (VKA) Therapeutic Range: INR 2 to 3 (Target INR of 2.5)Note: For patients treated with VKA drugs, such as warfarin, the [place] [employer] 2012 Guideline recommends a therapeutic INR range of 2 to 3 (target INR of 2.5). This recommendation includes high-risk patients with antiphospholipid syndrome with previous arterial or venous thromboembolism, current-generation mechanical or bioprosthetic aortic heart valve replacement.Note: Patients with mechanical aortic valve replacement and additional risk factors for thromboembolic events (atrial fibrillation, previous thromboembolism, LV dysfunction, hypercoagulable conditions) or an older generation mechanical AVR (i.e., ball in-Cage) or any mechanical MVR should have a INR therapeutic range of 2.5 to 3.5 (target INR of 3).Lars GH, et al. Chest 2012, 141:7S-47SNishimura RA, et al. [facility] 2017, 70: 252-289 Performed By: #### 3 4528-0 ####[facility] [id number] [place] [address] [place] PT Coag (PPP) [Time] 10.5 s Normal 9.7-13.0 [facility] Comment on above: Order Comment: Speci men Type: BLOOD SPECIMENOrdering Facility: [facility] Address: [address] [place] [address] Performed By: #### 3 4528-0 ####[facility] [id number] [address] [place] CT ABD/PEL W IVCONon 022 CT ABD/PEL W IVCON Normal [facility] NURSING PROGon 06-25-2021 NURSING PROG Normal [facility] CNOVon 06-23-2021 CNOV Normal [facility] CNPNon 06-23-2021 CNPN Normal [facility] CNPTOUTREACHon 06-23-2021 CNPTOUTREACH Normal [facility] URINALYSIS, REFLEX MICROSCOP ICon 06-23-2021 Bilirubin Ql (U) Negative Negative [facility] Clarity (Unsp spec) Clear Clear [facility] Color (U) Yellow Yellow [facility] Glucose Test strip (U) [Mass/Vol] Negative Negative [facility] Hemoglobin Ql (U) Negative Negative [facility] Ketones Ql (U) Negative Negative [facility] Leukocyte esterase Test strip Ql (U) Negative Negative [facility] Nitrite Ql (U) Negative Negative [facility] pH (U) 6.5 [pH] 5.0 - 8.0 [facility] Protein (U) [Mass/Vol] Trace Abnormal Negative [facility] Specific gravity (U) [Rel density] 1.013 1.005 - 1.030 [facility] Urobilinogen Ql (U) Negative Negative [facility] Bilirubin Ql (U) Negative Normal Negative [facility] Comment on above: Order Comment: Speci men Type: URINE SPECIMENOrdering Facility: [facility] Address: [address] [place] [address] Performed By: #### L [id number] ####[facility] Q7CLIA [id number] [address] OF [place] Clarity (Unsp spec) Clear Normal Clear [facility] Comment on above: Order Comment: Speci men Type: URINE SPECIMENOrdering Facility: [facility] Address: [address] [place] [address] Performed By: #### L [id number] ####[facility] Q7CLIA [id number] [address] OF [place] Color (U) Yellow Normal Yellow [facility] Comment on above: Order Comment: Speci men Type: URINE SPECIMENOrdering Facility: [facility] Address: [address] [place] [address] Performed By: #### L [id number] ####[facility] Q7CLIA [id number] [place] [address] [place] Glucose Test strip (U) [Mass/Vol] Negative Normal Negative [facility] Comment on above: Order Comment: Speci men Type: URINE SPECIMENOrdering Facility: [facility] Address: [address] [place] [address] Performed By: #### L [id number] ####[facility] Q7CLIA [id number] [id number] [address] [place] Hemoglobin Ql (U) Negative Normal Negative [facility] Comment on above: Order Comment: Speci men Type: URINE SPECIMENOrdering Facility: [facility] Address: [address] [place], [place] [address] Performed By: #### L [id number] ####[facility] Q7CLIA [id number] [place] [address] [place] Ketones Ql (U) Negative Normal Negative [facility] Comment on above: Order Comment: Speci men Type: URINE SPECIMENOrdering Facility: [facility] Address: [address] [place], [place] [address] Performed By: #### L [id number] ####[facility] Q7CLIA [id number] [place] [address] [place] Leukocyte esterase Test strip Ql (U) Negative Normal Negative [facility] Comment on above: Order Comment: Speci men Type: URINE SPECIMENOrdering Facility: [facility] Address: [address] [place], [place] [address] Performed By: #### L [id number] ####[facility] Q7CLIA [id number] [place] [address] [place] Nitrite Ql (U) Negative Normal Negative [facility] Comment on above: Order Comment: Speci men Type: URINE SPECIMENOrdering Facility: [facility] Address: [address] [place], [place] [address] Performed By: #### L [id number] ####[facility] Q7CLIA [id number] [place] [address] [place] pH (U) 6.5 [pH] Normal 5.0-8.0 [facility] Comment on above: Order Comment: Speci men Type: URINE SPECIMENOrdering Facility: [facility] Address: [address] [place] [address] Performed By: #### L [id number] ####[facility] Q7CLIA [id number] [place] [address] [place] Protein (U) [Mass/Vol] Trace Abnormal Negative [facility] Comment on above: Order Comment: Speci men Type: URINE SPECIMENOrdering Facility: [facility] Address: [address] [place] [address] Performed By: #### L [id number] ####[facility] Q7CLIA [id number] [place] [address] [place] Specific gravity (U) [Rel density] 1.013 Normal 1.005-1.03 0 [facility] Comment on above: Order Comment: Speci men Type: URINE SPECIMENOrdering Facility: [facility] Address: [address] [place] [address] Performed By: #### L [id number] ####[facility] 7CLIA [id number] [place] [address] [place] Urobilinogen Ql (U) Negative Normal Negative [facility] Comment on above: Order Comment: Speci men Type: URINE SPECIMENOrdering Facility: [facility] Address: [address] [place] [address] Performed By: #### L [id number] ####[facility] Q7CLIA [id number] [place] [address] [place] CBC W Auto Differential pane l (Bld)on 06-20-2021 Basophils (Bld) [#/Vol] 0.03 10*3/uL Normal <0.11 [facility] Comment on above: Order Comment: Speci men Type: BLOOD SPECIMENOrdering Facility: [facility] Address: [address] [place], [place] [address] Performed By: #### 5 7021-8 ####[facility] [id number] [address] [place] Basophils/100 WBC (Bld) 0.4 % Normal [facility] Comment on above: Order Comment: Speci men Type: BLOOD SPECIMENOrdering Facility: [facility] Address: [address] [place], [place] [address] Performed By: #### 5 7021-8 ####[facility] [id number] [place] [address] [place] Differential cell count method Nom (Bld) Auto Normal [facility] Comment on above: Order Comment: Speci men Type: BLOOD SPECIMENOrdering Facility: [facility] Address: [address] [place], [place] [address] Performed By: #### 5 7021-8 ####[facility] [id number] [place] [address] [place] Eosinophils (Bld) [#/Vol] 10*3/uL Normal <0.46 [facility] Comment on above: Order Comment: Speci men Type: BLOOD SPECIMENOrdering Facility: [facility] Address: [address] [place], [place] [address] Performed By: #### 5 7021-8 ####[facility] [id number] [address] [place] Eosinophils/100 WBC (Bld) 0.3 % Normal [facility] Comment on above: Order Comment: Speci men Type: BLOOD SPECIMENOrdering Facility: [facility] Address: [address] [place] [address] Performed By: #### 5 7021-8 ####[facility] [id number] [place] [address] [place] Erythrocyte distribution width (RBC) [Ratio] 14.8 % Normal 11.5-15.0 [facility] Comment on above: Order Comment: Speci men Type: BLOOD SPECIMENOrdering Facility: [facility] Address: [address] [place], [place] [address] Performed By: #### 5 7021-8 ####[facility] [id number] [address] OF [facility] Hematocrit (Bld) [Volume fraction] 48.7 % Normal 39.0-51.0 [facility] Comment on above: Order Comment: Speci men Type: BLOOD SPECIMENOrdering Facility: [facility] Address: [address] [place] [address] Performed By: #### 5 7021-8 ####[facility] [id number] [address] [place] OF [facility] Hemoglobin (Bld) [Mass/Vol] 15.6 g/dL Normal 13.0-17.0 [facility] Comment on above: Order Comment: Speci men Type: BLOOD SPECIMENOrdering Facility: [facility] Address: [address] [place] [address] Performed By: #### 5 7021-8 ####[facility] [id number] [address] [facility] IMMATURE GRAN % 0.3 % Normal [facility] Comment on above: Order Comment: Speci men Type: BLOOD SPECIMENOrdering Facility: [facility] Address: [address] [place] [address] Performed By: #### 5 7021-8 ####[facility] [id number] [address] [facility] IMMATURE GRAN ABS <0.03 Normal <0.10 [facility] Comment on above: Order Comment: Speci men Type: BLOOD SPECIMENOrdering Facility: [facility] Address: [address] [place] [address] Performed By: #### 5 7021-8 ####[facility] [id number] [address] OF [place] Lymphocytes (Bld) [#/Vol] 1.78 10*3/uL Normal 1.00-4.00 [facility] Comment on above: Order Comment: Speci men Type: BLOOD SPECIMENOrdering Facility: [facility] Address: [address] [place], [place] [address] Performed By: #### 5 7021-8 ####[facility] [id number] [address] STATES [facility] Lymphocytes/100 WBC (Bld) 26.6 % Normal [facility] Comment on above: Order Comment: Speci men Type: BLOOD SPECIMENOrdering Facility: [facility] Address: [address] [place], [place] [address] Performed By: #### 5 7021-8 ####[facility] [id number] [place] [address] [place] MCH (RBC) [Entitic mass] 29.4 pg Normal 26.0-34.0 [facility] Comment on above: Order Comment: Speci men Type: BLOOD SPECIMENOrdering Facility: [facility] Address: [address] [place], [place] [address] Performed By: #### 5 7021-8 ####[facility] [id number] [address] [place] MCHC (RBC) [Mass/Vol] 32.0 g/dL Normal 30.5-36.0 [facility] Comment on above: Order Comment: Speci men Type: BLOOD SPECIMENOrdering Facility: [facility] Address: [address] [place] [address] Performed By: #### 5 7021-8 ####[facility] [id number] [place] [address] [place] MCV (RBC) [Entitic vol] 91.9 fL Normal 80.0-100.0 [facility] Comment on above: Order Comment: Speci men Type: BLOOD SPECIMENOrdering Facility: [facility] Address: [address] [place], [place] [address] Performed By: #### 5 7021-8 ####[facility] [id number] [place] [address] [place] Monocytes (Bld) [#/Vol] 0.51 10*3/uL Normal <0.87 [facility] Comment on above: Order Comment: Speci men Type: BLOOD SPECIMENOrdering Facility: [facility] Address: [address] [place] [address] Performed By: #### 5 7021-8 ####[facility] [id number] [place] [address] [place] Monocytes/100 WBC (Bld) 7.6 % Normal [facility] Comment on above: Order Comment: Speci men Type: BLOOD SPECIMENOrdering Facility: [facility] Address: [address] [place] [address] Performed By: #### 5 7021-8 ####[facility] [id number] [place] [address] [place] Neutrophils (Bld) [#/Vol] 4.34 10*3/uL Normal 1.45-7.50 [facility] Comment on above: Order Comment: Speci men Type: BLOOD SPECIMENOrdering Facility: [facility] Address: [address] [place], [place] [address] Performed By: #### 5 7021-8 ####[facility] [id number] [place] [address] [place] Neutrophils/100 WBC (Bld) 64.8 % Normal [facility] Comment on above: Order Comment: Speci men Type: BLOOD SPECIMENOrdering Facility: [facility] Address: [address] [place], [place] [address] Performed By: #### 5 7021-8 ####[facility] [id number] [place] [address] [place] Nucleated RBC (Bld) [#/Vol] 10*3/uL Normal <0.01 [facility] Comment on above: Order Comment: Speci men Type: BLOOD SPECIMENOrdering Facility: [facility] Address: [address] [place], [place] [address] Performed By: #### 5 7021-8 ####[facility] [id number] [place] [address] [place] Nucleated RBC/100 WBC (Bld) [Ratio] 0.0 /100 WBC Normal [facility] Comment on above: Order Comment: Speci men Type: BLOOD SPECIMENOrdering Facility: [facility] Address: [address] [place], [place] [address] Performed By: #### 5 7021-8 ####[facility] [id number] [place] [address] [place] Platelet mean volume (Bld) [Entitic vol] 11.0 fL Normal 9.0-12.7 [facility] Comment on above: Order Comment: Speci men Type: BLOOD SPECIMENOrdering Facility: [facility] Address: [address] [place], [place] [address] Performed By: #### 5 7021-8 ####[facility] [id number] [place] [address] [place] Platelets (Bld) [#/Vol] 268 10*3/uL Normal 150-400 [facility] Comment on above: Order Comment: Speci men Type: BLOOD SPECIMENOrdering Facility: [facility] Address: [address] [place] [address] Performed By: #### 5 7021-8 ####[facility] [id number] [place] [address] [place] RBC (Bld) [#/Vol] 5.30 10*6/uL Normal 4.20-6.00 [facility] Comment on above: Order Comment: Speci men Type: BLOOD SPECIMENOrdering Facility: [facility] Address: [address] [place] [address] Performed By: #### 5 7021-8 ####[facility] [id number] [place] [address] [place] WBC (Bld) [#/Vol] 6.70 10*3/uL Normal 3.70-11.00 [facility] Comment on above: Order Comment: Speci men Type: BLOOD SPECIMENOrdering Facility: [facility] Address: [address] [place], [place] [address] Performed By: #### 5 7021-8 ####[facility] [id number] [place] [address] [place] CNOVon 06-20-2021 CNOV Normal [facility] metabolic 2000 panelon 06-20-2021 Albumin [Mass/Vol] 4.2 g/dL Normal 3.9-4.9 [facility] Comment on above: Order Comment: Speci men Type: BLOOD SPECIMENOrdering Facility: [facility] Address: [address] [place], [place] [address] Performed By: #### 2 4323-8 ####[facility] [id number] [place] [address] [place] ALP [Catalytic activity/Vol] 52 U/L Normal 38-113 [facility] Comment on above: Order Comment: Speci men Type: BLOOD SPECIMENOrdering Facility: [facility] Address: [address] [place] [address] Performed By: #### 2 4323-8 ####[facility] [id number] [place] [address] [place] ALT [Catalytic activity/Vol] 17 U/L Normal 10-54 [facility] Comment on above: Order Comment: Speci men Type: BLOOD SPECIMENOrdering Facility: [facility] Address: [address] [place] [address] Performed By: #### 2 4323-8 ####[facility] [id number] [place] [address] [place] Anion gap [Moles/Vol] 12 mmol/L Normal 9-18 [facility] Comment on above: Order Comment: Speci men Type: BLOOD SPECIMENOrdering Facility: [facility] Address: [address] [place], [place] [address] Performed By: #### 2 4323-8 ####[facility] [id number] [place] [address] [place] AST [Catalytic activity/Vol] 18 U/L Normal 14-40 [facility] Comment on above: Order Comment: Speci men Type: BLOOD SPECIMENOrdering Facility: [facility] Address: [address] [place], [place] [address] Performed By: #### 2 4323-8 ####[facility] [id number] [place] [address] [place] Bilirubin [Mass/Vol] 0.5 mg/dL Normal 0.2-1.3 [facility] Comment on above: Order Comment: Speci men Type: BLOOD SPECIMENOrdering Facility: [facility] Address: [address] [place], [place] [address] Performed By: #### 2 4323-8 ####[facility] [id number] [place] [address] [place] Calcium [Mass/Vol] 9.8 mg/dL Normal 8.5-10.2 [facility] Comment on above: Order Comment: Speci men Type: BLOOD SPECIMENOrdering Facility: [facility] Address: [address] [place], [place] [address] Performed By: #### 2 4323-8 ####[facility] [id number] [place] [address] [place] Chloride [Moles/Vol] 101 mmol/L Normal 97-105 [facility] Comment on above: Order Comment: Speci men Type: BLOOD SPECIMENOrdering Facility: [facility] Address: [address] [place] [address] Performed By: #### 2 4323-8 ####[facility] [id number] [place] [address] [place] CO2 [Moles/Vol] 28 mmol/L Normal 22-30 [facility] Comment on above: Order Comment: Speci men Type: BLOOD SPECIMENOrdering Facility: [facility] Address: [address] [place] [address] Performed By: #### 2 4323-8 ####[facility] [id number] [place] [address] [place] Creatinine [Mass/Vol] 1.12 mg/dL Normal 0.73-1.22 [facility] Comment on above: Order Comment: Speci men Type: BLOOD SPECIMENOrdering Facility: [facility] Address: [address] [place] [address] Performed By: #### 2 4323-8 ####[facility] [id number] [place] [address] [place] ESTIMATED GLOMERULAR FILTRATION RATE 77 mL/min/1.73m??? Normal >=60 [facility] Comment on above: Order Comment: Speci men Type: BLOOD SPECIMENOrdering Facility: [facility] Address: [address] [place] [address] Result Comment: Laurita mated Glomerular Filtration Rate (eGFR) is calculated using the 2020 CKD-EPI creatinine equation. This equation utilizes serum creatinine, sex, and age as parameters. The creatinine assay has traceable calibration to isotope dilution-mass spectrometry. Refer to KDIGO guidelines for clinical interpretation. In patients with unstable renal function, e.g. those with acute kidney injury, the eGFR may not accurately reflect actual GFR. Performed By: #### 2 4323-8 ####[facility] [id number] [address] [address] [place] Glucose [Mass/Vol] 87 mg/dL Normal 74-99 [facility] Comment on above: Order Comment: Speci men Type: BLOOD SPECIMENOrdering Facility: [facility] Address: [address] [place] [address] Result Comment: The [place] [employer] (ADA) provides guidance for cutoff values for fasting glucose and random glucose. The ADA defines fasting as no caloric intake for at least 8 hours. Fasting plasma glucose results between 100 to 125 mg/dL indicate increased risk for diabetes (prediabetes).Fasting plasma glucose results greater than or equal to 126 mg/dL meet the criteria for diagnosis of diabetes. In the absence of unequivocal hyperglycemia, results should be confirmed by repeat testing. In a patient with classic symptoms of hyperglycemia or hyperglycemic crisis, random plasma glucose results greater than or equal to 200 mg/dL meet the criteria for diagnosis of diabetes.Reference: Standards of Medical Care in Diabetes 2016, [place] [employer]. Diabetes Care. 2016.39(Suppl 1). Performed By: #### 2 4323-8 ####[facility] [id number] [place] [address] [place] Potassium [Moles/Vol] 3.8 mmol/L Normal 3.7-5.1 [facility] Comment on above: Order Comment: Speci men Type: BLOOD SPECIMENOrdering Facility: [facility] Address: [address] [place] [address] Performed By: #### 2 4323-8 ####[facility] [id number] [place] [address] [place] Protein [Mass/Vol] 7.3 g/dL Normal 6.3-8.0 [facility] Comment on above: Order Comment: Speci men Type: BLOOD SPECIMENOrdering Facility: [facility] Address: [address] [place] [address] Performed By: #### 2 4323-8 ####[facility] [id number] [place] [address] [place] Sodium [Moles/Vol] 141 mmol/L Normal 136-144 [facility] Comment on above: Order Comment: Speci men Type: BLOOD SPECIMENOrdering Facility: [facility] Address: [address] [place] [address] Performed By: #### 2 4323-8 ####[facility] [id number] [place] [address] [place] Urea nitrogen [Mass/Vol] 12 mg/dL Normal 9-24 [facility] Comment on above: Order Comment: Speci men Type: BLOOD SPECIMENOrdering Facility: [facility] Address: [address] [place] [address] Performed By: #### 2 4323-8 ####[facility] [id number] [place] [address] [place] ALC ETHANOLon 06-19-2021 ALC ETHANOL < 3.0 Normal <10.0 [facility] Comment on above: Order Comment: CONSE RVATION Result Comment: UNCO NFIRMED Toxicology results. For MEDICAL purposes only. Performed By: #### L 500.91487, L500.29285, L500.55173 ####Test performed at: [place] [address] [place] [address] ALT SerPl w P-5'-P-cCncOrder ed By: Siri Harris on 06-19-2021 ALT With P-5'-P [Catalytic activity/Vol] 23 U/L 13-61 [facility] AST SerPl w P-5'-P-cCncOrder ed By: Siri Harris on 06-19-2021 AST With P-5'-P [Catalytic activity/Vol] 16 U/L 15-37 [facility] Albumin SerPl-mCncOrdered By : Siri Harris on 06-19-2021 Albumin [Mass/Vol] 3.4 g/dL 3.4-5.0 [facility] BUN SerPl-mCncOrdered By: Natty Harris on 06-19-2021 Urea nitrogen [Mass/Vol] 16 mg/dL 7-18 [facility] Basophils Auto (Bld) [#/Vol] Ordered By: Siri Harris on 06-19-2021 Basophils (Bld) [#/Vol] 0.0 10*3/uL 0.0-0.2 [facility] Basophils/100 WBC Auto (Bld) Ordered By: Siri Harris on 06-19-2021 Basophils/100 WBC (Bld) 0.5 % [facility] CBC W/DIFFon 06-19-2021 BASO ABS 0.0 K/uL Normal 0.0-0.2 [facility] Comment on above: Order Comment: CONSE RVATION Performed By: #### L 200.30072 #### Test performed at: [address] [address] Basophils/100 WBC (Bld) 0.5 % Normal [facility] Comment on above: Order Comment: CONSE RVATION Performed By: #### L 200.71486 #### Test performed at: [address] [address] EOS ABS 0.1 K/uL Normal 0.0-0.5 [facility] Comment on above: Order Comment: CONSE RVATION Performed By: #### L 200.49897 #### Test performed at: [address] [address] Eosinophils/100 WBC (Bld) 0.6 % Normal [facility] Comment on above: Order Comment: CONSE RVATION Performed By: #### L 200.01557 #### Test performed at: [address] [address] Erythrocyte distribution width (RBC) [Ratio] 14.8 % High 11.5-14.5 [facility] Comment on above: Order Comment: CONSE RVATION Performed By: #### L 200.96253 #### Test performed at: [address] [address] Hematocrit (Bld) [Volume fraction] 43.8 % Normal 39.0-55.0 [facility] Comment on above: Order Comment: CONSE RVATION Performed By: #### L 200.63678 #### Test performed at: [place] [address] Hemoglobin (Bld) [Mass/Vol] 14.9 g/dL Normal 14.0-16.5 [facility] Comment on above: Order Comment: CONSE RVATION Performed By: #### L 200.85430 #### Test performed at: [place] [address] IG % 0.4 % Normal [facility] Comment on above: Order Comment: CONSE RVATION Performed By: #### L 200.70931 #### Test performed at: [address] [address] IG ABS 0.03 K/uL Normal 0-0.05 [facility] Comment on above: Order Comment: CONSE RVATION Performed By: #### L 200.05672 #### Test performed at: [place] [id number] Lymphocytes (Bld) [#/Vol] 2.0 10*3/uL Normal 1.2-3.5 [facility] Comment on above: Order Comment: CONSE RVATION Performed By: #### L 200.93326 #### Test performed at: [place] [id number] Lymphocytes/100 WBC (Bld) 25.2 % Normal [facility] Comment on above: Order Comment: CONSE RVATION Performed By: #### L 200.58270 #### Test performed at: [address], [place] [address] MCH (RBC) [Entitic mass] 30.2 pg Normal 25.4-34.6 [facility] Comment on above: Order Comment: CONSE RVATION Performed By: #### L 200.30935 #### Test performed at: [address] [address] MCHC (RBC) [Mass/Vol] 34.0 g/dL Normal 31.5-36.5 [facility] Comment on above: Order Comment: CONSE RVATION Performed By: #### L 200.96935 #### Test performed at: [address] [address] MCV (RBC) [Entitic vol] 88.7 fL Normal 80.0-100.0 [facility] Comment on above: Order Comment: CONSE RVATION Performed By: #### L 200.71115 #### Test performed at: [address] [address] MONO ABS 0.7 K/uL Normal 0.0-1.0 [facility] Comment on above: Order Comment: CONSE RVATION Performed By: #### L 200.66367 #### Test performed at: [address] [address] Monocytes/100 WBC (Bld) 9.4 % Normal [facility] Comment on above: Order Comment: CONSE RVATION Performed By: #### L 200.69706 #### Test performed at: [address] [address] NEUTROPHIL ABS 4.9 K/uL Normal 1.4-6.6 [facility] Comment on above: Order Comment: CONSE RVATION Performed By: #### L 200.30437 #### Test performed at: [address] [address] Neutrophils/100 WBC (Bld) 63.9 % Normal [facility] Comment on above: Order Comment: CONSE RVATION Performed By: #### L 200.24847 #### Test performed at: [address] [address] NRBC # 0.000 K/uL Normal 0-0.012 [facility] Comment on above: Order Comment: CONSE RVATION Performed By: #### L 200.27146 #### Test performed at: [address] [address] NRBC % 0.0 /100 WBC Normal 0-0.2 [facility] Comment on above: Order Comment: CONSE RVATION Performed By: #### L 200.90116 #### Test performed at: [address] [address] Platelet mean volume (Bld) [Entitic vol] 10.1 fL Normal 8.7-12.4 [facility] Comment on above: Order Comment: CONSE RVATION Performed By: #### L 200.60730 #### Test performed at: [address] [address] Platelets (Bld) [#/Vol] 245 10*3/uL Normal 140-440 [facility] Comment on above: Order Comment: CONSE RVATION Performed By: #### L 200.66227 #### Test performed at: [address] [address] RBC (Bld) [#/Vol] 4.94 10*6/uL Normal 3.5-5.5 [facility] Comment on above: Order Comment: CONSE RVATION Performed By: #### L 200.60575 #### Test performed at: [address] [address] WBC (Bld) [#/Vol] 7.7 10*3/uL Normal 3.9-11.0 [facility] Comment on above: Order Comment: CONSE RVATION Performed By: #### L 200.63716 #### Test performed at: [place] [address] CO2 SerPl-sCncOrdered By: Natty Harris on 06-19-2021 CO2 [Moles/Vol] 29 mmol/L 21-32 [facility] COMP META PANELon 06-19-2021 Albumin [Mass/Vol] 3.4 g/dL Normal 3.4-5.0 [facility] Comment on above: Order Comment: CONSE RVATION Performed By: #### L 500.01077, L500.76657, L500.11581 #### Test performed at: [place] [id number] ALK PHOS TOTAL 58 U/L Normal 45-117 [facility] Comment on above: Order Comment: CONSE RVATION Performed By: #### L 500.71693, L500.09071, L500.16631 #### Test performed at: [address] [address] ALT [Catalytic activity/Vol] 23 U/L Normal 13-61 [facility] Comment on above: Order Comment: CONSE RVATION Performed By: #### L 500.61345, L500.31822, L500.43586 #### Test performed at: [address] [address] AST [Catalytic activity/Vol] 16 U/L Normal 15-37 [facility] Comment on above: Order Comment: CONSE RVATION Performed By: #### L 500.60958, L500.06283, L500.62094 #### Test performed at: [address] [address] BILI TOTAL 0.4 mg/dL Normal 0.2-1.0 [facility] Comment on above: Order Comment: CONSE RVATION Performed By: #### L 500.04564, L500.24431, L500.81448 #### Test performed at: [address] [address] Calcium [Mass/Vol] 9.0 mg/dL Normal 8.5-10.1 [facility] Comment on above: Order Comment: CONSE RVATION Performed By: #### L 500.05089, L500.67456, L500.78258 #### Test performed at: [address] [address] Chloride [Moles/Vol] 107 mmol/L Normal 98-107 [facility] Comment on above: Order Comment: CONSE RVATION Performed By: #### L 500.25527, L500.30120, L500.95227 #### Test performed at: [address] [address] CO2 [Moles/Vol] 29 mmol/L Normal 21-32 [facility] Comment on above: Order Comment: CONSE RVATION Performed By: #### L 500.35652, L500.15037, L500.06648 #### Test performed at: [address] [address] Creatinine [Mass/Vol] 1.290 mg/dL Normal 0.700- 1.30 0 [facility] Comment on above: Order Comment: CONSE RVATION Performed By: #### L 500.54882, L500.10010, L500.34707 #### Test performed at: [address] [address] Glucose [Mass/Vol] 91 mg/dL Normal 70-99 [facility] Comment on above: Order Comment: CONSE RVATION Result Comment: Fast ing GLUCOSE reference range has been updated per (ADA) [place] [employer]'s recommendation. 05/31/2018 Performed By: #### L 500.51527, L500.45134, L500.99753 #### Test performed at: [address] [address] Potassium [Moles/Vol] 3.5 mmol/L Normal 3.5-5.1 [facility] Comment on above: Order Comment: CONSE RVATION Performed By: #### L 500.96158, L500.59752, L500.91037 #### Test performed at: [address] [address] Protein [Mass/Vol] 6.9 g/dL Normal 6.4-8.2 [facility] Comment on above: Order Comment: CONSE RVATION Performed By: #### L 500.27145, L500.53494, L500.04356 #### Test performed at: [address] [address] Sodium [Moles/Vol] 140 mmol/L Normal 136-145 [facility] Comment on above: Order Comment: CONSE RVATION Performed By: #### L 500.29702, L500.65605, L500.34918 #### Test performed at: [address] [address] Urea nitrogen [Mass/Vol] 16 mg/dL Normal 7-18 [facility] Comment on above: Order Comment: CONSE RVATION Performed By: #### L 500.11971, L500.93727, L500.19884 #### Test performed at: [address] [address] [address] ANG THORAX WCON PE PROTOC OLon 06-19-2021 CT ANG THORAX WCON PE PROTOCOL STUDY: CT ANG THORAX WCON PE PROTOCOL; 06/19/2021 6:00 pm INDICATION: high dimer. COMPARISON: Chest x-ray 06/19/2021. ACCESSION NUMBER(S): [id number] ORDERING CLINICIAN: Siri Harris TECHNIQUE: Helical data acquisition of the chest was obtained after intravenous administration of 100 mL of Omnipaque 350. Images were reformatted in axial, coronal, and sagittal planes. Axial and coronal MIPS were reconstructed and reviewed. FINDINGS: HEART AND VESSELS: No acute pulmonary embolism to the segmental arterial level. Main pulmonary artery is dilated up to 3.5 cm which can be seen with pulmonary arterial hypertension. The thoracic aorta is of normal course and caliber with diffuse vascular calcifications. Moderate coronary artery calcifications are seen.The study is not optimized for evaluation of coronary arteries. The cardiac chambers are mildly enlarged. No evidence of pericardial effusion. MEDIASTINUM AND GUALBERTO, LOWER NECK AND AXILLA: The visualized thyroid gland is within normal limits. No evidence of thoracic lymphadenopathy by CT criteria. Esophagus appears within normal limits as seen. LUNGS AND AIRWAYS: The trachea and central airways are patent. No endobronchial lesion. No consolidation, effusion or pneumothorax. Minimal atelectatic changes in the right middle lobe secondary to mass effect from below described right lytic mass. UPPER ABDOMEN: There is partial visualization of a heterogeneous 5.4 x 7.1 cm right renal mass, incompletely characterized. CHEST WALL AND OSSEOUS STRUCTURES: Multilevel degenerative changes of the spine. There is a large lytic mass in the right 6 rib anterolaterally with soft tissue component measuring approximately 5.3 x 9.0 x 5.6 cm. Mild bilateral gynecomastia. Atrophy of the right pectoralis musculature is noted. IMPRESSION: 1. No acute pulmonary embolism to the segmental arterial level. 2. There is a heterogeneous mass in the right kidney measuring 5.4 x 7.1 cm which is incompletely characterized. In addition there is a lytic right 5th rib mass corresponding to findings on concurrent chest x-ray. These findings are concerning for malignancy such as RCC with osseous metastasis. Further evaluation with dedicated renal CT or MRI is recommended. Document Only: The critical information above was relayed directly by me by telephone to Siri Harirs on 06/19/2021 at 6:47 pm with readback verification. Normal [facility] CT HEAD/BRAIN WO CONon 06-19 CT HEAD/BRAIN WO CON STUDY: CT HEAD/BRAIN WO CON; 06/19/2021 6:00 pm INDICATION: htn. COMPARISON: CT scan of the head 09/09/2016 ACCESSION NUMBER(S): [id number] ORDERING CLINICIAN: Siri Harris TECHNIQUE: Axial noncontrast CT images of the head. FINDINGS: BRAIN PARENCHYMA: Teresa-white matter interfaces are preserved. No mass, mass effect or midline shift. Minimal deep and periventricular white matter hypodensities are nonspecific, but favored to represent chronic small vessel ischemic changes. HEMORRHAGE: No acute intracranial hemorrhage. VENTRICLES and EXTRA-AXIAL SPACES: Normal size. EXTRACRANIAL SOFT TISSUES: Age-appropriate volume loss. PARANASAL SINUSES/MASTOIDS: Mucous retention cyst versus polyp in the left maxillary sinus. Remainder of the visualized paranasal sinuses and mastoid air cells are aerated. CALVARIUM: No depressed skull fracture. No destructive osseous lesion. OTHER FINDINGS: Atherosclerotic calcification of the carotid siphons. IMPRESSION: No acute intracranial abnormality. Stable chronic changes as described above. Normal [facility] Calcium SerPl-mCncOrdered By : Siri Harris on 06-19-2021 Calcium [Mass/Vol] 9.0 mg/dL 8.5-10.1 [facility] D dimer FEU PPP-mCncOrdered By: Siri Harris on 06-19-2021 Fibrin D-dimer FEU (PPP) [Mass/Vol] 1020.82 <500 [facility] Comment on above: The CUT-OFF value fo r the evaluation of VenousThromboEmbolism (VTE) is <500 ng/mL FEU. D-DIMER QUANTon 06-19-2021 D-DIMER QUANT 1020.82 ng/mLFEU High <500 [facility] Comment on above: Order Comment: CONSE RVATION Result Comment: The CUT-OFF value for the evaluation of Venous ThromboEmbolism (VTE) is <500 ng/mL FEU. Performed By: #### L 300.49892 #### Test performed at: [place] [address] ED Provider Reporton 022 ED Provider Report [facility] Pt Name: YEFRI YANEZ MR#: [id number] [address] [place] [address] ACCT: [id number] : 63 EMERGENCY PROVIDER REPORT ADM Date: 06/19/21 ER Physician: Siri Harris MD HPI-Syncope Time Seen by 1550 Source of Information PATIENT Triage Complaint PASSED OUT AFTER EATING ICE, UNKNOWN HOW LONG LOC Travel Out of [place] in last month No Symptom Onset 40MINS AGO Duration Sudden, Improved Number of episodes 1 Witnessed episode No Duration of LOC unk Activity at time of episode Standing Symptoms prior to episode No None Syncope associated symptoms No Hearing loss, No Ring/roaring in ear, No Ear pain, No Nausea/vomiting, No Sense of spinning, No Sense of falling, No Decreased stand/walking, No Loss of sensation, No Loss of strength, No Diaphoresis, No Light-headed, No Sense of confusion, No Headache Similar symptoms no Recently seen by no Past Medical History Past Medical History Reports HTN, Denies RI, Denies COPD, Denies Asthma Past Med Hx con't Denies Hepatitis, Denies GI Bleed, Denies HIV/AIDS, Denies Immunocompromised Surgical History Denies Pacemaker Past Social History Packs/Day 5 A DAY Review of Systems Review of Systems Allergies Coded Allergies: SHELLFISH DERIVED (Severe, ANAPHYLAXIS 06/19/21) LISINOPRIL (Intermediate, LIP, TONGUE SWELING, WHEEZES, DYSPHAGIA 09/01/12) ASPIRIN (Mild, HIVES 09/01/12) PENICILLINS (09/01/12) Nursing Notes Reviewed Yes Medications Reviewed I have reviewed the patient's Home Medication List Constitutional Denies Fever, Denies Chills, Denies Diaphoresis, Denies Weakness, Denies Weight loss, Denies Recent Illness EENT Denies: Vision Change, Vision Problems, Sore Throat, Dental Problems, Nasal Congestion, Nasal Drainage. CVS/Pulmonary Denies Chest pain, Denies Hurts to breath, Denies Shortness of breath, Denies Cough GI/ Denies: Abdominal Pain, Nausea, Vomiting. MS/SKIN/LYMPH Denies Extremity Pain Neuro/Psych Fainting, Denies Headache, Denies Loss of Sensation, Denies Weakness, Denies Difficulty Walking, Denies Difficulty with Speech ROS ROS: All other systems reviewed and are negative. Physical Exam -Chest Pain Vital Signs Vital Signs Reviewed Yes Vital Signs Vital Signs Verdana 4d Date Time Temp Pulse Resp B/P B/P Pulse O2 O2 Flow FiO2 Mean Ox Delivery Rate 06/19 1547 37.0 65 20 143/87 96 Appearance GENERAL APPEARANCE Appears well, Alert, No Distress. Neuro Neuro Oriented x 3, Speech Clear, Moves all extremities Neuro-Expanded No Confused, No Disoriented to Person, No Disoriented to Place, No Disoriented to Time, No Speech Slurred, No Facial droop, No Extremity weakness, No Sensory loss HEENT HEENT Head Atraumatic, Eyes Nml Inspection, Hearing grossly normal, No Signs of Dehydration, Mucosa Moist Head/Face Expanded No Head Trauma Present, No Tenderness, No Swelling Mouth/Throat - Expanded No Jaw Pain, No Dental Pain/Tenderness:, No Odontalgia, No Sore Throat, No Swelling of Jaw /Face, No Gum Swelling on Tooth, No Abcess, No Widespread Dental Decay, No Gingivitis, No Trismus, No Pharyngeal Erythema, No Tonsillar Exudate, No Peritonsillar Mass:, No Uvular Shift, No Pointing Abscess, No Increased Secretions, No Hoarse/ Muffled Voice, No Dry Membranes/Sockets, No Swelling/Induration Neck NECK Nml Inspection, No thyromegaly, No Lymphadenopathy, No Kernig/Brudzinski's, No Carotid Bruit Neck - Expanded No Decreased ROM/Stiff Neck, No Muscle Spasm, No Pain w/Axial Compression Respiratory Respiratory Lungs sounds clear, Respirations nonlabored, Symmetrical expansion Respiratory-Expanded Exam No Resp Distress Breath Sounds by Lobe L LOWER LOBE Clear, R LOWER LOBE Clear, R UPPER LOBE Clear CVS Cardiovascular Rate WNL, Rhythm regular, Normal heart sounds, Pulses full,equal, Brisk Capillary Refill Heart Sounds No Systolic Murmur, No Diastolic Murmur, No Grade 1/6, No 2/6, No 3/6, No 4/6, No 5/6 , No 6/6, No Gallop, No Rub Abdomen/Pelvis ABDOMEN / GI Bowel Sounds Present, Abdomen soft, Non-Tender, No distention ABDOMEN/GI - Expanded Exam No Distended, No Tenderness, No Guarding Extremity Extremity Normal Appearance, Full ROM, Sensation Intact Extremity - Expanded Exam Normal Gait Skin Skin Color Nml, Warm, Dry Medical Decision Making Diagnostics Labs Laboratory Tests Reginadl 4d 06/19 06/19 06/19 1629 1629 1617 Chemistry Sodium (136 - 145 mmol/L) 140 Potassium (3.5 - 5.1 mmol/L) 3.5 Chloride (98 - 107 mmol/L) 107 Carbon Dioxide (21 - 32 mmol/L) 29 BUN (7 - 18 mg/dL) 16 Creatinine (0.700 - 1.300 mg/dL) 1.290 Est GFR ( Amer) (> 60) > 60 Est GFR (Non-Af Amer) (> 60) 57 L Glucose (70 - 99 mg/dL) 91 POC Glucose (70 - 99 mg/dL) 91 Total Calcium (8.5 - 10.1 mg/dL) 9.0 Total Bilirubin (0.2 - 1.0 mg/dL) 0.4 AST (15 - 37 U/L) 16 ALT (13 - 61 U/L) 23 Mallory (more content not included)... Normal [facility] EKGon 06-19-2021 Electrocardiogram Acquired on 06/20/19 22 1620 Vent. Rate : 062 BPM Atrial Rate : 062 BPM P-R Int : 198 ms QRS Dur : 108 ms QT Int : 426 ms P-R-T Axes : 046 073 081 degrees QTc Int : 432 ms Normal sinus rhythm Normal ECG When compared with ECG of 17-JUN-2010 21:00, No significant change was found Confirmed by FILEMON LEYVA MD () on 06/23/2021 12:43:43 PM Referred By: Confirmed By:FILEMON LEYVA MD [id number] 2021 -------- [facility] PT NAME: YEFRI YANEZ MR#: [id number] [address] [place] [address] ACCT: [id number] : 63 EKG REPORT Normal [facility] Eosinophils Auto (Bld) [#/Vo l]Ordered By: Siri Harris on 06-19-2021 Eosinophils (Bld) [#/Vol] 0.1 10*3/uL 0.0-0.5 [facility] Eosinophils/100 WBC Auto (Bl d)Ordered By: Siri Harris on 06-19-2021 Eosinophils/100 WBC (Bld) 0.6 % [facility] Erythrocyte distribution wid th Auto (RBC) [Ratio]Ordered By: iSri Harris on 06-19-2021 Erythrocyte distribution width (RBC) [Ratio] 14.8 % 11.5-14.5 [facility] GFR ESTIMATEon 06-19-2021 IF AMER > 60 Normal > 60 [facility] Comment on above: Order Comment: CONSE RVATION Result Comment: eGFR (Estimated GFR) Units of measure:mL/min/1.73 meters sq. *CALCULATION REVISED 12/25/2014;IDMS-traceable MDRD equation eGFR is derived from the reexpressed MDRD Study equation using the following parameters: serum creatinine, age, gender and race. An eGFR<60 mL/min/1.73m2 for >3 months is consistent with chronic kidney disease. Refer to KDOQI guidelines for clinical interpretation. Performed By: #### L 500.75777, L500.87674, L500.14537 ####Test performed at: [place] [address] IF non-AFR AMER 57 Low > 60 [facility] Comment on above: Order Comment: CONSE RVATION Performed By: #### L 500.44349, L500.02343, L500.42927 ####Test performed at: [place] [address] GFR/BSA.pred SerPlBld-ArVRat Ordered By: Siri Harris on 06-19-2021 GFR/1.73 sq M.predicted (S/P/Bld) [Vol rate/Area] 57 mL/min > 60 [facility] GFR/1.73 sq M.predicted (S/P/Bld) [Vol rate/Area] mL/min > 60 [facility] Comment on above: eGFR (Estimated GFR) Units of measure:mL/min/1.73 meters sq. *CALCULATION REVISED 12/25/2014;IDMS-traceable MDRD equationeGFR is derived from the reexpressed MDRD Study equationusing the following parameters: serum creatinine, age,gender and race. An eGFR<60 mL/min/1.73m2 for >3 monthsis consistent with chronic kidney disease. Refer to KDOQIguidelines for clinical interpretation. GLUCOSE METERon 06-19-2021 Glucose [Mass/Vol] 91 mg/dL Normal 70-99 [facility] Comment on above: Order Comment: CONSE RVATION Result Comment: Fast ing GLUCOSE reference range has been updated per (ADA) [place] [employer]'s recommendation. 05/31/2018 Performed By: #### L 500.60146 #### Test performed at: [address] [address] Glucose (BldC) [Mass/Vol]Ord ered By: Siri Harris on 06-19-2021 Glucose [Mass/Vol] 91 mg/dL 70-99 [facility] Comment on above: Fasting GLUCOSE refe rence range has been updated per (ADA)[place] [employer]'s recommendation. 05/31/2018 Hematocrit Auto (Bld) [Volum e fraction]Ordered By: Siri Harris on 06-19-2021 Hematocrit (Bld) [Volume fraction] 43.8 % 39.0-55.0 [facility] Hgb Bld-mCncOrdered By: Siri Harris on 06-19-2021 Hemoglobin (Bld) [Mass/Vol] 14.9 g/dL 14.0-16.5 [facility] Immature granulocytes Auto ( Bld) [#/Vol]Ordered By: Siri Harris on 06-19-2021 Immature granulocytes (Bld) [#/Vol] 0.03 10*3/uL 0-0.05 [facility] Immature granulocytes/100 WB C Auto (Bld)Ordered By: Siri Harris on 06-19-2021 Immature granulocytes/100 WBC (Bld) 0.4 % [facility] Laboratory - Chemistry and C hemistry - challengeOrdered By: Siri Harris on 06-19-2021 ALP [Catalytic activity/Vol] 58 U/L 45-117 [facility] Bilirubin [Mass/Vol] 0.4 mg/dL 0.2-1.0 [facility] Chloride [Moles/Vol] 107 mmol/L 98-107 [facility] Creatinine [Mass/Vol] 1.290 mg/dL 0.700- 1.30 0 [facility] Glucose [Mass/Vol] 91 mg/dL 70-99 [facility] Comment on above: Fasting GLUCOSE vannessa march range has been updated per (ADA)[place] [employer]'s recommendation. 05/31/2018 Potassium [Moles/Vol] 3.5 mmol/L 3.5-5.1 [facility] Sodium [Moles/Vol] 140 mmol/L 136-145 [facility] Lymphocytes Auto (Bld) [#/Vo l]Ordered By: Siri Harris on 06-19-2021 Lymphocytes (Bld) [#/Vol] 2.0 10*3/uL 1.2-3.5 [facility] Lymphocytes/100 WBC Auto (Bl d)Ordered By: Siri Harris on 06-19-2021 Lymphocytes/100 WBC (Bld) 25.2 % [facility] MCH Auto (RBC) [Entitic mass ]Ordered By: Siri Harris on 06-19-2021 MCH (RBC) [Entitic mass] 30.2 pg 25.4-34.6 [facility] MCHC Auto (RBC) [Mass/Vol]Or dered By: Siri Harris on 06-19-2021 MCHC (RBC) [Mass/Vol] 34.0 g/dL 31.5-36.5 [facility] MCV Auto (RBC) [Entitic vol] Ordered By: Siri Harris on 06-19-2021 MCV (RBC) [Entitic vol] 88.7 fL 80.0-100.0 [facility] Monocytes Auto (Bld) [#/Vol] Ordered By: Siri Harris on 06-19-2021 Monocytes (Bld) [#/Vol] 0.7 10*3/uL 0.0-1.0 [facility] Monocytes/100 WBC Auto (Bld) Ordered By: Siri Harris on 06-19-2021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 Take 1 tablet by mouth once daily. - lovastatin (MEVACOR) 20 mg tablet Take 1 tablet by mouth daily with dinner. - pantoprazole DR (PROTONIX) 40 mg tablet Take 1 tablet by mouth once daily. - etodolac (LODINE) 400 mg tablet Take 1 tablet by mouth once daily as needed (Lower back pain). - tiZANidine (ZANAFLEX) 4 mg tablet Take 1 tablet by mouth every 8 hours as needed. - MULTIVITAMIN TAB Take one(1) tablet daily. I have interviewed and examined the patient. I have reviewed the medical record and/or the pre-anesthesia evaluation, pertinent labs, and test results. This contains updated information obtained within 48 hours of Surgery/Procedure. SIGNATURE: Haylee Villagran DO PATIENT NAME: Yefri Yanez DATE: November 20, 2019 TIME: 8:15 AM CSN: [id number] [facility] HISTORY PHYSICALon 0 HISTORY PHYSICAL HNO ID: [id number] Author: Erick Gutiérrez (Pa) Service: Gastroenterology Author Type: Physician Digital Sales Director Type: HANDP Filed: 11/20/2019 8:25 AM Note Text: UPDATED HISTORY AND PHYSICAL EXAMINATION PATIENT NAME: Yefri Yanez SERVICE DATE: 11/20/2019 SERVICE TIME: 7:53 AM PHYSICAL EXAM MUST BE COMPLETED ON ADMISSION ASSESSMENT AND PLAN Screening for malignant neoplasm of the colon Colonoscopy Patient optimized for surgery at this time Interval HPI: This is a 54 y/o male with a PMH of Hypertension,NIMCO, Convulsions, who presents for above procedure. He currently denies any Chest Pain, palpitations, SOB, headache, dizziness, lightheadedness, change in vision or hearing, numbness or tingling in the hands or feet, abdominal pain, N/V/C/D, dysuria or hematuria, or syncope. The History and Physical (completed in the past 30 days) has been reviewed and the patient has been examined. The contents accurately reflect the patient's condition with the following additions or revisions since the HANDP was completed. Patient Vitals for the past 24 hrs: BP Temp Pulse Resp SpO2 Height Weight 11/20/19 0753 136/85 36.1 ?C (97 ?F) 61 16 100 % 180.3 cm (5' 11) 108.9 kg (240 lb) Examination indicates no changes. GENERAL: Alert, no distress, cooperative LUNGS: Lungs clear to auscultation, Good diaphragmatic excursion CARDIAC: RRR, normal S1 and S2; no rubs, murmurs, or gallops ABDOMEN: Abdomen soft, non-tender. BS normal. EXTREMITIES: Extremities normal, no deformities, edema, clubbing or skin discoloration. Good capillary refill., No ulcers PULSES: 2+ radial, 2+ dorsalis pedis This HANDP can be found in the Electronic Medical Record dated 11/15/2019 by Dayna Clayton APRN.MINE PATROL. SIGNATURE: Erick Gutiérrez PA-C DATE: November 20, 2019 TIME: 7:53 AM Normal [facility] NURSING PROGon 11-20-2019 NURSING PROG HNO ID: [id number] Author: Adwoa FontaineRnRoberto Galeano RN Service: Gastroenterology Author Type: Registered Nurse Type: Nursing Progress Note Filed: 11/21/2019 10:13 AM Note Text: [facility] ENDOSCOPY POST PROCEDURE FOLLOW UP CALL [phone] (home) [phone] (work) Date Phone Call Made: 11/21/2019 Attempt: Attempt #1 Spoke to: Patient SYMPTOM DESCRIPTION Pain or Discomfort rated as: None IV Site: none Diet Back to Previous yes Nausea/Vomiting: None Bleeding: None Bowel Habits: Normal Other Issues: No Complaints Offered Was the nursing staff attentive to your needs? Yes Is there something our department could have done to make your experience more pleasant? No Adwoa Galeano RN } [facility] PT EDon 11-20-2019 PT ED HNO ID: [id number] Author: Gabbi FontaineRn) JOHN Montes Service: Nursing Author Type: Registered Nurse Type: Patient Education Filed: 11/20/2019 10:42 AM Note Text: PATIENT EDUCATION TOPIC: PROCEDURE / SURGERY: Post-op Teaching: Symptom Management PATIENT NAME: Yefri Yanez PATIENT [facility]ATION[facility] READINESS TO LEARN COGNITIVE ABILITY: Alert and oriented MOTIVATION TO LEARN: Eager Interested FAMILY SUPPORT: None - Unavailable/disinterested INSTRUCTION PROVIDED TO: Patient PATIENT LEARNS BEST BY: Written Instruction - Hand-outs Verbal Instruction FACTORS AFFECTING LEARNING: None PHYSICAL LIMITATIONS AFFECTING LEARNING: None LEARNING RESPONSE DIAGNOSIS: ADULT: colonoscopy PATIENT/FAMILY RESPONSE: Verbalizes understanding of: SYMPTOM MANAGEMENT-Correct actions to take to manage symptoms associated with his/her disease/illness METHOD OF INSTRUCTION: Written instruction - handouts Verbal instruction FOLLOW-UP PLAN: Patient instructed to call with any further issues Follow-up with Primary Care Follow up phone call. INSTRUCTIONAL AIDS USED: NA SUPPLEMENTAL MATERIAL PROVIDED TO PATIENT: None REFERRAL (RECOMMENDATION): None Electronically Signed By: Gabbi Montes RN [facility] PT ED HNO ID: [id number] Author: Marysol FontaineRn) JOHN Ward Service: Nursing Author Type: Registered Nurse Type: Patient Education Filed: 11/20/2019 8:02 AM Note Text: PATIENT EDUCATION TOPIC: PROCEDURE / SURGERY: Pre-op Teaching: Surgical Safety Principles PATIENT NAME: Yefri Yanez PATIENT LOCATION: [facility] READINESS TO LEARN COGNITIVE ABILITY: Alert and oriented MOTIVATION TO LEARN: Interested FAMILY SUPPORT: Unable to assess - Family not present INSTRUCTION PROVIDED TO: Patient PATIENT LEARNS BEST BY: Individual Instruction FACTORS AFFECTING LEARNING: None PHYSICAL LIMITATIONS AFFECTING LEARNING: None LEARNING RESPONSE DIAGNOSIS: ADULT: Pain PATIENT/FAMILY RESPONSE: Verbalizes understanding of: PRE-PROCEDURE INSTRUCTIONS-Correct action to take to follow pre-procedure instructions METHOD OF INSTRUCTION: Individual instruction FOLLOW-UP PLAN: Follow up phone call. INSTRUCTIONAL AIDS USED: NA SUPPLEMENTAL MATERIAL PROVIDED TO PATIENT: None REFERRAL (RECOMMENDATION): None Electronically Signed By: Marysol Ward RN [facility] PT ED HNO ID: [id number] Author: Marysol (Rn) JOHN Ward Service: Nursing Author Type: Registered Nurse Type: Patient Education Filed: 11/20/2019 7:56 AM Note Text: PATIENT EDUCATION TOPIC: PROCEDURE / SURGERY: Pre-op Teaching: Surgical Safety Principles PATIENT NAME: Yefri Yanez PATIENT LOCATION: [facility] READINESS TO LEARN COGNITIVE ABILITY: Alert and oriented MOTIVATION TO LEARN: Interested FAMILY SUPPORT: Unable to assess - Family not present INSTRUCTION PROVIDED TO: Patient PATIENT LEARNS BEST BY: Individual Instruction FACTORS AFFECTING LEARNING: None PHYSICAL LIMITATIONS AFFECTING LEARNING: None LEARNING RESPONSE DIAGNOSIS: ADULT: Pain PATIENT/FAMILY RESPONSE: Verbalizes understanding of: PRE-PROCEDURE INSTRUCTIONS-Correct action to take to follow pre-procedure instructions METHOD OF INSTRUCTION: Individual instruction FOLLOW-UP PLAN: Follow up phone call. INSTRUCTIONAL AIDS USED: NA SUPPLEMENTAL MATERIAL PROVIDED TO PATIENT: None REFERRAL (RECOMMENDATION): None Electronically Signed By: Marysol Ward RN [facility] SURGICAL PATHOLOGYon 14- 020 SURGICAL PATHOLOGY Specimen originated from [facility] Specimen #: [id number] Submitting Physician: TOMY YOO MD FINAL DIAGNOSIS 1. Transverse colon, polyp, biopsy (A) - Tubular adenoma. 2. Sigmoid colon, polyp, biopsy (B) - Tubular adenoma. 3. Rectum, polyp, biopsy (C) - Tubular adenoma. 4. Rectum, polyp, biopsy (D) - Hyperplastic polyp. SR/lbk 11/21/2019 Steven Burton MD, Ph.D. (Electronic Signature) SPECIMEN SUBMITTED A: TRANSVERSE COLON POLYP, BIOPSY B: SIGMOID COLON POLYP, BIOPSY C: RECTAL POLYP, BIOPSY D: RECTAL POLYP, BIOPSY CLINICAL DATA COLONOSCOPY; SPECIAL SCREENING FOR MALIGNANT NEOPLASMS, COLON GROSS DESCRIPTION A. Received in formalin is one piece of short, soft tissue measuring 0.4 x 0.2 x 0.2 cm. Totally submitted in one cassette. B. Received in formalin is a segment of short-brown polypoid tissue measuring 0.6 x 0.6 x 0.6 cm. No stalk is noted. The line of resection is noted. The specimen is bisected and totally submitted in one cassette. C. Received in formalin is a segment of short-brown polypoid tissue measuring 1.2 x 0.8 x 0.7 cm. No stalk is noted. The line of resection is noted. The specimen is bisected and totally submitted in one cassette. D. Received in formalin are multiple pieces of short, soft tissue aggregating to 1.3 x 0.2 x 0.1 cm. Totally submitted in one cassette. Gross examination performed at [facility], [address] [place] [address] 11/20/2019 3:34:29 PM Date of Report: 11/21/2019 Date of Procedure: 11/20/2019 Date of Receipt: 11/20/2019 Submitted by: TOMY YOO MD Location: [facility] [place] Diagnostic interpretation performed at [place] [address]. CLIA Number: [id number] [facility] NURSING PROGon 11-17-2019 NURSING PROG HNO ID: [id number] Author: Haylee (Rn) JOHN Longo Service: Gastroenterology Author Type: Registered Nurse Type: Nursing Progress Note Filed: 11/17/2019 2:28 PM Note Text: [facility] ENDOSCOPY PRE PROCEDURE CALL RED is stuff not told to patient and info for endo nurses only- can be deleted. Spoke to: Patient Procedure Planned:colonoscopy Covid 19 screening questions to be asked prior to time given for test until further notice by management that it is ok to stop screening: If any concern of illness, contact endoscopist for advice. Day Before Out Pt Surgery Script: Andrei. I'm calling from [facility] endoscopy to provide you with the information for your surgery/procedure tomorrow. Your COVID test result needs to be negative within 72 hours of your procedure date. (Endo RN to verify results and/or appointments for covid testing and be sure patient is aware that result must be back and be negative to proceed with test.) Patient voices understanding. 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 primo yanez What is the best number for your special needs bus driver to be reached at tomorrow for updates?[phone] So you are prepared and comfortable on the day of your procedure, I want to make you aware of several safety measures we've put in place. When entering our facilities, patients and visitors will be screened for potential COVID-19 symptoms including a temperature scan. You will be asked to sanitize your hands and will be provided with a cloth mask to wear the entire time you are in our building. You may choose to bring your own masks from home. Additionally, as the furniture has been rearranged to promote social and physical distancing, your visitor will be asked to wait outside of the building. This is for everyone's safety and we will ensure the surgical team is able to contact your support team. All patients may have a visitor in recovery only, after the procedure, however, there is a short recovery period so most drivers chose to stay in the car. Colonoscopy: Pt instructed to only have clear liquids on Wednesday - no solid food (or instruct this must be done on Wednesday.) Remind patient the day prior to the test is clear liquids that you can see through (no reds or purple). Stay well hydrated all day. Do not drink only the bowel prep to clean you out. Are you familiar with where [facility] is located?yes Address [facility] Patient instructed to enter through the main hospital entrance off [address] at [address] through the revolving doors and check in at the main desk with your special needs bus driver's license and insurance card. yes If anesthesia or sedation is being given: Patient instructed you must have an adult special needs bus driver because you will not be able to work or drive for the rest of the day after your test.yes Patient instructed not bring any valuables, jewelry, or li and wear comfortable clothing. Do not wear makeup, lotion, or finger moldovan. yes Patient instructed: Do not eat or drink anything after midnight, including gum and hard candy.yes Patient instructed: Please bring a list of medications including over the counter, vitamin, and herbals. If you are on inhalers, please do them in the morning before your test and bring them with you.yes Blood pressure, seizure, or thyroid medications may be taken with a couple sips of water ONLY 3 hours prior to arrival time. Is the patient on blood thinners?no Per Dr. Booker, if the patient stopped pradaxa, eliquis, or xaralto 3 days prior to test- ok to proceed. If ASA stopped over 2 days prior to test- ok to proceed. If Plavix or Warfarin was stopped per advice of physician (primary/cardiac, etc)- ok to proceed. If concerns and 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 not stopped, endo RN to contact endoscopist for advice. Are you diabetic?no Reminder:diabetic medication instructions should be given by the patient's ordering physician. If blood sugar drops, they can have CLEAR liquids to bring it up until 3 hours prior to arrival time. Has patient had any recent heart events in the past 6 months? : No If concerns, endo RN to contact endoscopist. Does the patient have a trach or Internal Defibrillator? : No If yes, needs MAC- notify endoscopist to order MAC if procedural sedation is ordered and scheduled. Has patient had any problems with anesthesia in the past or told by a medical professional that he/she was difficult to intubate?: No Procedure and bowel prep instructions given to patient and questions answered: Yes, and they verbalized their understanding of instructions given Any barriers to Patient learning (confusion? Engine Wiper needed?): Patient/Patient Case Work Aide responded appropriately on phone. Type of instruction given: Verbal by telephone contact. [facility] Dougie 11-09-2019 CNPN Telephone (SPDIG) ----- YEFRI YANEZ ([id number]) 1965 M Date Time Provider Department 11/09/19 TOMY YOO SPDIG During your visit today, we recorded the following information about you: Madyson Soto, RN, RN 11/09/2019 2:50 PM Signed I called patient to review colonoscopy instructions. Spoke with patient and patient did receive and review instruction packet. Reviewed diet instructions and restrictions, colonoscopy prep and medications regimen. Patient instructed that they will receive a call the day prior to procedure with the time. Patient verbalized understanding of all teaching. Patient instructed to call office should any further questions develop. Instructions s Madyson Soto, RN Allergies As of Date: 11/09/2019 Noted Allergy Reaction LISINOPRIL 09/01/2012 18 - Angioedema ASPIRIN 07/21/2004 5 - Intolerance PENICILLINS 11/01/2003 5 - Intolerance Date Reviewed: 10/31/2019 Reviewed by: Jillian Maurer - Fully Assessed Reason for Visit: Preparations For Procedures [899] Prescriptions as of 11/09/2019 Sig: POTASSIUM CHLORIDE ER 10 MEQ * Take 1 tablet by mouth once d* PANTOPRAZOLE 40 MG TABLET,DEL* Take 1 tablet by mouth once d* ATENOLOL 100 MG TABLET Take 1 tablet by mouth once d* TRIAMTERENE 37.5 MG-HYDROCHLO* Take 1 capsule by mouth once * AMLODIPINE 5 MG TABLET Take 1 tablet by mouth once d* LOVASTATIN 20 MG TABLET Take 1 tablet by mouth daily * ETODOLAC 400 MG TABLET Take 1 tablet by mouth once d* TIZANIDINE 4 MG TABLET Take 1 tablet by mouth every * * MULTIVITAMIN TABLET Take one(1) tablet daily. Problem List As Of Date 11/09/2019 Noted Resolved BENIGN HYPERTENSION [I10] 06/30/2004 03/12/2008 HYPERLIPIDEMIA NEC/NOS [E78.5] 06/30/2004 ROUTINE MEDICAL EXAM [Z00.00] 06/30/2004 11/26/2014 Disturbance in sleep behavior [G47.9] 06/30/2004 CHEST PAIN NOS [R07.9] 06/30/2004 11/26/2014 ALLERGIC RHINITIS NOS [J30.9] 06/30/2004 JOINT PAIN-SHLDER [M25.519] 06/04/2006 Essential hypertension [I10] 03/12/2008 ESOPHAGEAL REFLUX [K21.9] 03/12/2008 TOBACCO USE DISORDER [F17.200] 03/12/2008 Encounter Status:Closed by MADYSON SOTO on 11/09/19 [facility] HOSPon 11-07-2019 HOSP Patient:Fermin Yanez MRN: Height:5' 11(1.803 m) Weight:240 lb (108.863 kg) Outpatient Medications as of 11/20/19: potassium chloride (K-TAB) [address] (PROTONIX) 40 mg tablet atenolol (TENORMIN) 100 mg tablet triamterene-hydrochloroth iazide (DYAZIDE) 37.5-25 mg per capsule amLODIPine (NORVASC) 5 mg tablet lovastatin (MEVACOR) 20 mg tablet etodolac (LODINE) 400 mg tablet tiZANidine (ZANAFLEX) 4 mg tablet MULTIVITAMIN TAB Admission/Clinic Administered Medications as of 11/20/19: Patient has no admission medications. Problem List: HLD (hyperlipidemia) [E78.5] Disturbance in sleep behavior [G47.9] Allergic rhinitis, cause unspecified [J30.9] Pain in joint, shoulder region [M25.519] Essential hypertension [I10] Esophageal reflux [K21.9] Tobacco use disorder [F17.200] NIMCO (obstructive sleep apnea) [G47.33] History of seizure [Z87.898] Class 1 obesity due to excess calories without serious comorbidity with body mass index (BMI) of 33.0 to 33.9 in adult [E66.09, Z68.33] Allergies: Lisinopril Aspirin Penicillins Date Verified: 11/20/19 Lab Values Lab Value Units Date High Low POTA* 3.7 mmol/L 11/06/2019 5.1 3.7 CULLEN* 49.0 % 11/06/2019 51.0 39.0 Progress Notes (HOME CARE RESP BOC): SHANTANU Mendez 11/16/2019 2:21 PM Signed Regarding the order we received for an AutoBipap Machine: The pressure settings you documented are IPAP 30 EPAP 17 PS 3-15 This machine IPAP only reaches 25 and the pressure support will only reach 8 Our RT suggested the following settings: Ipap max 25, Epap min 17, PS 3-8 can be accommodated. If you are in agreement, please submit a new prescription with settings. Thank you Dorie Maurer DO 11/16/2019 8:25 PM Signed Thank you. New order placed. Jillian Maurer DO Progress Notes ( [facility]): Madyson Soto RN, RN 11/09/2019 2:50 PM Signed I called patient to review colonoscopy instructions. Spoke with patient and patient did receive and review instruction packet. Reviewed diet instructions and restrictions, colonoscopy prep and medications regimen. Patient instructed that they will receive a call the day prior to procedure with the time. Patient verbalized understanding of all teaching. Patient instructed to call office should any further questions develop. Instructions s Madyson Soto, JOHN [facility] No Panel Information SARS-CoV-2 & FLU Antigen (Rapid) [facility] Work Phone: Vital Signs Date Time Vital Sign Value Performing Clinician Cristopher meza 08-14-2024 15:00-0400 Body weight 118.[address] Daksha Turner MD Work Phone: [facility] 08-14-2024 13:06-0400 Body height 180.[address] Daksha Turner MD Work Phone: [facility] 08-14-2024 06:47-0400 Body mass index (BMI) [Ratio] 35.9 kg/m2 Dr. Daksha Turner MD Work Phone: [facility] 08-14-2024 06:47-0400 Body weight 117.[address] Daksha Turner MD Work Phone: [facility] 08-14-2024 06:47-0400 Diastolic blood pressure 76 mm[Hg] Dr. Daksha Turner MD Work Phone: 3(363)075-828958 [place] [address] 08-14-2024 06:47-0400 Heart rate 84 /min Dr. Daksha Turner MD Work Phone: 2(086)925-122358 [place] [address] 08-14-2024 06:47-0400 Respiratory rate 18 /min Dr. Daksha Turner MD Work Phone: 7(024)356-229065 [address] 08-14-2024 06:47-0400 SaO2% (BldA) [Mass fraction] 97 % Dr. Daksha Turner MD Work Phone: 1(065)426-359901 [place] [address] 08-14-2024 06:47-0400 Systolic blood pressure 127 mm[Hg] Dr. Daksha Turner MD Work Phone: 7(795)457-241401 [place] [address] 06-20-2024 13:40-0400 Body height 180.[address] Daksha Turner MD Work Phone: 1(307)157-276701 [place] [address] 06-20-2024 13:38-0400 Body mass index (BMI) [Ratio] 36.8 kg/m2 Dr. Daksha Turner MD Work Phone: 4(202)462-589301 [place] [address] 06-20-2024 13:38-0400 Body temperature 98.1 [degF] Dr. Daksha Turner MD Work Phone: 1(233)815-911101 [place] [address] 06-20-2024 13:38-0400 Body weight 119.[address] Daksha Turner MD Work Phone: 5(730)932-121165 [address] 06-20-2024 13:38-0400 Diastolic blood pressure 79 mm[Hg] Dr. Daksha Turner MD Work Phone: 3(321)602-588601 [place] [address] 06-20-2024 13:38-0400 Heart rate 99 /min Dr. Daksha Turner MD Work Phone: 5(671)595-712501 [place] [address] 06-20-2024 13:38-0400 Respiratory rate 18 /min Dr. Daksha Turner MD Work Phone: 3(636)504-203158 [place] [address] 06-20-2024 13:38-0400 SaO2% (BldA) [Mass fraction] 95 % Dr. Daksha Turner MD Work Phone: [facility] 06-20-2024 13:38-0400 Systolic blood pressure 106 mm[Hg] Dr. Daksha Turner MD Work Phone: 3(235)768-580358 [place] [address] 06-05-2024 13:45-0400 Body height 180.[address] Daksha Turner MD Work Phone: 7(175)550-025758 [place] [address] 06-05-2024 13:45-0400 Body weight 122.[address] Daksha Turner MD Work Phone: 8(029)964-294301 [place] [address] 04-12-2023 15:35-0500 Body height 180.[address] Jose Ramon Turner Work Phone: 5(958)899-351901 [place] [address] 04-12-2023 15:35-0500 Body mass index (BMI) [Ratio] 38.5 kg/m2 Dr. Jose Ramon Turner Work Phone: 2(907)686-462458 [place] [address] 04-12-2023 15:35-0500 Body temperature 98.2 [degF] Dr. Jose Ramon Turner Work Phone: 8(639)240-560958 [place] [address] 04-12-2023 15:35-0500 Body weight 125.[address] Jose Ramon Turner Work Phone: 1(931)223-658058 [place] [address] 04-12-2023 15:35-0500 Diastolic blood pressure 66 mm[Hg] Dr. Jose Ramon Turner Work Phone: [facility] 04-12-2023 15:35-0500 Heart rate 80 /min Dr. Jose Ramon Turner Work Phone: 2(068)398-216958 [place] [address] 04-12-2023 15:35-0500 Respiratory rate 18 /min Dr. Jose Ramon Turner Work Phone: [facility] 04-12-2023 15:35-0500 SaO2% (BldA) [Mass fraction] 95 % Dr. Jose Ramon Turner Work Phone: 2(360)628-915658 [place] [address] 04-12-2023 15:35-0500 Systolic blood pressure 104 mm[Hg] Dr. Jose Ramon Turner Work Phone: 9(171)927-534601 [place] [address] 12-17-2022 09:20-0400 Inhaled oxygen flow rate 2 L/min Dr. Jose Ramon Turner Work Phone: 6(463)364-072601 [place] [address] 12-17-2022 09:18-0400 SaO2% (BldA) [Mass fraction] 97 % Dr. Jose Ramon Turner Work Phone: 0(600)917-544001 [place] [address] 12-17-2022 09:00-0400 Body temperature 98 [degF] Dr. Jose Ramon Turner Work Phone: 2(571)911-822701 [place] [address] 12-17-2022 09:00-0400 Diastolic blood pressure 87 mm[Hg] Dr. JoseR amon Turner Work Phone: 6(539)099-594601 [place] [address] 12-17-2022 09:00-0400 Heart rate 77 /min Dr. Jose Ramon Turner Work Phone: 0(875)360-235701 [place] [address] 12-17-2022 09:00-0400 Respiratory rate 16 /min Dr. Jose Ramon Turner Work Phone: 2(112)583-913701 [place] [address] 12-17-2022 09:00-0400 Systolic blood pressure 125 mm[Hg] Dr. Jose Ramon Turner Work Phone: 0(657)191-133101 [place] [address] 12-17-2022 04:00-0400 Body mass index (BMI) [Ratio] 36.1 kg/m2 Dr. Jose Ramon Turner Work Phone: 7(246)491-514701 [place] [address] 12-17-2022 04:00-0400 Body weight 117.[address] Jose Ramon Turner Work Phone: 2(511)977-847001 [place] [address] 12-16-2022 15:19-0400 Body height 180.[address] Jose Ramon Turner Work Phone: 3(944)449-525701 [place] [address] 09-29-2022 13:43-0400 Body mass index (BMI) [Ratio] 9.3 kg/m2 Dr. Jose Ramon Turner Work Phone: [facility] 09-29-2022 13:43-0400 Body weight 30.[address] Jose Ramon Turner Work Phone: [facility] 09-29-2022 13:43-0400 Diastolic blood pressure 81 mm[Hg] Dr. Jose Ramon Turner Work Phone: [facility] 09-29-2022 13:43-0400 Heart rate 84 /min Dr. Jose Ramon Turner Work Phone: [facility] 09-29-2022 13:43-0400 Respiratory rate 20 /min Dr. Jose Ramon Turner Work Phone: [facility] 09-29-2022 13:43-0400 SaO2% (BldA) [Mass fraction] 97 % Dr. Jose Ramon Turner Work Phone: [facility] 09-29-2022 13:43-0400 Systolic blood pressure 110 mm[Hg] Dr. Jose Ramon Turner Work Phone: 8(377)519-259458 [place] [address] 09-03-2022 13:24-0400 Body height 180.[address] Jose Ramon Turner Work Phone: [facility] 09-03-2022 13:24-0400 Body mass index (BMI) [Ratio] 37.8 kg/m2 Dr. Jose Ramon Turner Work Phone: [facility] 09-03-2022 13:24-0400 Body temperature 97.2 [degF] Dr. Jose Ramon Turner Work Phone: [facility] 09-03-2022 13:24-0400 Body weight 122.[address] Jose Ramon Turner Work Phone: [facility] 09-03-2022 13:24-0400 Diastolic blood pressure 89 mm[Hg] Dr. Jose Ramon Turner Work Phone: [facility] 09-03-2022 13:24-0400 Heart rate 72 /min Dr. Jose Ramon Turner Work Phone: [facility] 09-03-2022 13:24-0400 Respiratory rate 16 /min Dr. Jose Ramon Turner Work Phone: [facility] 09-03-2022 13:24-0400 SaO2% (BldA) [Mass fraction] 97 % Dr. Jose Ramon Turner Work Phone: [facility] 09-03-2022 13:24-0400 Systolic blood pressure 132 mm[Hg] Dr. Jose Ramon Turner Work Phone: [facility] 06-29-2022 12:20-0400 Body temperature 97.5 [degF] Dr. Jose Ramon Turner Work Phone: [facility] 06-29-2022 12:20-0400 Diastolic blood pressure 92 mm[Hg] Dr. Jose Ramon Turner Work Phone: [facility] 06-29-2022 12:20-0400 Heart rate 68 /min Dr. Jose Ramon Turner Work Phone: [facility] 06-29-2022 12:20-0400 Respiratory rate 18 /min Dr. Jose Ramon Turner Work Phone: [facility] 06-29-2022 12:20-0400 SaO2% (BldA) [Mass fraction] 93 % Dr. Jose Ramon Turner Work Phone: [facility] 06-29-2022 12:20-0400 Systolic blood pressure 126 mm[Hg] Dr. Jose Ramon Turner Work Phone: [facility] 06-29-2022 09:28-0400 Inhaled oxygen flow rate 0 L/min Dr. Jose Ramon Turner Work Phone: [facility] 06-29-2022 04:35-0400 Body mass index (BMI) [Ratio] 38.2 kg/m2 Dr. Jose Ramon Turner Work Phone: 7(868)398-764765 [address] 06-29-2022 04:35-0400 Body weight 124.[address] Jose Ramon Turner Work Phone: 2(058)066-613001 [place] [address] 06-28-2022 11:54-0400 Body height 180.[address] Jose Ramon Turner Work Phone: 0(103)681-715801 [place] [address] 06-28-2022 00:14-0400 Body temperature 98.7 [degF] Dr. Jose Ramon Turner Work Phone: 5(063)188-635901 [place] [address] 06-28-2022 00:14-0400 Diastolic blood pressure 89 mm[Hg] Dr. Jose Ramon Turner Work Phone: 6(922)637-973301 [place] [address] 06-28-2022 00:14-0400 Heart rate 98 /min Dr. Jose Ramon Turner Work Phone: 1(188)192-379801 [place] [address] 06-28-2022 00:14-0400 Respiratory rate 24 /min Dr. Jose Ramon Turner Work Phone: 8(898)572-519801 [place] [address] 06-28-2022 00:14-0400 SaO2% (BldA) [Mass fraction] 97 % Dr. Jose Ramon Turner Work Phone: 9(030)004-320601 [place] [address] 06-28-2022 00:14-0400 Systolic blood pressure 139 mm[Hg] Dr. Jose Ramon Turner Work Phone: 3(013)189-328958 [place] [address] 06-27-2022 23:04-0400 Body height 180.[address] Jose Ramon Turner Work Phone: 4(748)785-903801 [place] [address] 06-27-2022 23:04-0400 Body mass index (BMI) [Ratio] 38.8 kg/m2 Dr. Jose Ramon Turner Work Phone: 8(899)604-018201 [place] [address] 06-27-2022 23:04-0400 Body weight 126.[address] Jose Ramon Turner Work Phone: 7(897)084-852001 [place] [address] 05-27-2022 12:50-0400 Body mass index (BMI) [Ratio] 37.8 kg/m2 Dr. Jose Ramon Turner Work Phone: [facility] 05-27-2022 12:50-0400 Body temperature 98.6 [degF] Dr. Jose Ramon Turner Work Phone: [facility] 05-27-2022 12:50-0400 Body weight 123.[address] Jose Ramon Turner Work Phone: [facility] 05-27-2022 12:50-0400 Diastolic blood pressure 83 mm[Hg] Dr. Jose Ramon Turner Work Phone: [facility] 05-27-2022 12:50-0400 Heart rate 54 /min Dr. Jose Ramon Turner Work Phone: [facility] 05-27-2022 12:50-0400 Respiratory rate 17 /min Dr. Jose Ramon Turner Work Phone: [facility] 05-27-2022 12:50-0400 Systolic blood pressure 117 mm[Hg] Dr. Jose Ramon Turner Work Phone: [facility] 05-27-2022 10:46-0400 Body weight 122.[address] Jose Ramon Turner Work Phone: [facility] 05-27-2022 10:46-0400 Diastolic blood pressure 83 mm[Hg] Dr. Jose Ramon Turner Work Phone: [facility] 05-27-2022 10:46-0400 Heart rate 77 /min Dr. Jose Ramon Turner Work Phone: [facility] 05-27-2022 10:46-0400 Respiratory rate 24 /min Dr. Jose Ramon Turner Work Phone: [facility] 05-27-2022 10:46-0400 Systolic blood pressure 117 mm[Hg] Dr. Jose Ramon Turner Work Phone: [facility] 05-20-2022 08:50-0400 Body temperature 97.6 [degF] Dr. Jose Ramon Turner Work Phone: 8(591)[phone] [place] [address] 05-20-2022 08:50-0400 Diastolic blood pressure 86 mm[Hg] Dr. Jose Ramon Turner Work Phone: [facility] 05-20-2022 08:50-0400 Heart rate 78 /min Dr. Jose Ramon Turner Work Phone: 1(565)490-682558 [place] [address] 05-20-2022 08:50-0400 Respiratory rate 18 /min Dr. Jose Ramon Turner Work Phone: 5(247)680-161965 [address] 05-20-2022 08:50-0400 SaO2% (BldA) [Mass fraction] 96 % Dr. Jose Ramon Turner Work Phone: 9(210)541-113701 [place] [address] 05-20-2022 08:50-0400 Systolic blood pressure 133 mm[Hg] Dr. Jose Ramon Turner Work Phone: 0(300)546-133558 [place] [address] 05-20-2022 07:38-0400 Inhaled oxygen concentration 30 % Dr. Jose Ramon Turner Work Phone: 7(647)512-203758 [place] [address] 05-20-2022 04:08-0400 Body mass index (BMI) [Ratio] 37.9 kg/m2 Dr. Jose Ramon Turner Work Phone: 4(175)722-897501 [place] [address] 05-20-2022 04:08-0400 Body weight 123.[address] Jose Ramon Turner Work Phone: 3(660)687-448665 [address] 05-19-2022 14:55-0400 Body height 180.[address] Jose Ramon Turner Work Phone: [facility] 05-18-2022 17:18-0400 Body temperature 97.5 [degF] Dr. Jose Ramon Turner Work Phone: 1(779)011-306558 [place] [address] 05-18-2022 17:18-0400 Diastolic blood pressure 113 mm[Hg] Dr. Jose Ramon Turner Work Phone: [facility] 05-18-2022 17:18-0400 Heart rate 97 /min Dr. Jose Ramon Turner Work Phone: [facility] 05-18-2022 17:18-0400 Respiratory rate 24 /min Dr. Jose Ramon Turner Work Phone: [facility] 05-18-2022 17:18-0400 SaO2% (BldA) [Mass fraction] 97 % Dr. Jose Ramon Turner Work Phone: [facility] 05-18-2022 17:18-0400 Systolic blood pressure 145 mm[Hg] Dr. Jose Ramon Turner Work Phone: [facility] 05-18-2022 14:59-0400 Body height 180.[address] Jose Ramon Turner Work Phone: [facility] 05-18-2022 14:59-0400 Body mass index (BMI) [Ratio] 38.6 kg/m2 Dr. Jose Ramon Turner Work Phone: 5(073)[phone] [place] [address] 05-18-2022 14:59-0400 Body weight 125.[address] Jose Ramon Turner Work Phone: [facility] 04-16-2022 13:54-0500 Body temperature 97.7 [degF] Dr. Jose Ramon Turner Work Phone: [facility] 04-16-2022 13:54-0500 Diastolic blood pressure 88 mm[Hg] Dr. Jose Ramon Turner Work Phone: [facility] 04-16-2022 13:54-0500 Heart rate 98 /min Dr. Jose Ramon Turner Work Phone: [facility] 04-16-2022 13:54-0500 Respiratory rate 18 /min Dr. Jose Ramon Turner Work Phone: [facility] 04-16-2022 13:54-0500 SaO2% (BldA) [Mass fraction] 94 % Dr. Jose Ramon Turner Work Phone: [facility] 04-16-2022 13:54-0500 Systolic blood pressure 120 mm[Hg] Dr. Jose Ramon Turner Work Phone: [facility] 04-16-2022 09:58-0500 Inhaled oxygen flow rate 0 L/min Dr. Jose Ramon Turner Work Phone: [facility] 04-16-2022 06:00-0500 Body weight 121.[address] Jose Ramon Turner Work Phone: [facility] 04-16-2022 04:00-0500 Inhaled oxygen concentration 32 % Dr. Jose Ramon Turner Work Phone: [facility] 04-14-2022 10:03-0500 Body height 177.[address] Jose Ramon Turner Work Phone: [facility] 04-14-2022 01:15-0500 Body mass index (BMI) [Ratio] 38.5 kg/m2 Dr. Jose Ramon Turner Work Phone: [facility] 04-14-2022 00:37-0500 Body temperature 97.1 [degF] [facility] 04-14-2022 00:37-0500 Diastolic blood pressure 82 mm[Hg] [facility] 04-14-2022 00:37-0500 Heart rate 102 /min [facility] 04-14-2022 00:37-0500 Inhaled oxygen flow rate 2 L/min [facility] 04-14-2022 00:37-0500 Respiratory rate 22 /min [facility] 04-14-2022 00:37-0500 SaO2% (BldA) [Mass fraction] 100 % [facility] 04-14-2022 00:37-0500 Systolic blood pressure 116 mm[Hg] [facility] 04-13-2022 21:17-0500 Body height 180.34 cm [facility] 04-13-2022 21:17-0500 Body mass index (BMI) [Ratio] 35.8 kg/m2 [facility] 04-13-2022 21:17-0500 Body weight 116.57 kg [facility] 04-03-2022 10:31-0500 Body height 177.8 cm Daksha Turner Work Phone: YN-Phjmvdm-Okvnyc ke [facility] [address] DO Work Phone: 04-03-2022 10:31-0500 Body mass index (BMI) [Ratio] 38.63 kg/m2 Kimoela Turner Work Phone: WH-Ktbgjmo-Xfplsy ke [facility] 400 DO Work Phone: 04-03-2022 10:31-0500 Body surface area Derived from formula 2.37 m2 Kimopasukh Gary Johnny Work Phone: ML-Xknbenb-Hwdnsr ke [facility] 400 DO Work Phone: 04-03-2022 10:31-0500 Body temperature 97.6 [degF] Daksha Abdirahman Turner Work Phone: IB-Mjxqahg-Smzwnq ke [facility] 400 DO Work Phone: 04-03-2022 10:31-0500 Body weight 122.13 kg Kimoela Turner Work Phone: MC-Azkztaa-Odryua ke [facility] 400 DO Work Phone: 04-03-2022 10:31-0500 Diastolic blood pressure 73 mm[Hg] Kimoela Turner Work Phone: QB-Pnddcyh-Wcehda ke [facility] 400 DO Work Phone: 04-03-2022 10:31-0500 Heart rate 123 /min Daksha Abdirahman Turner Work Phone: CJ-Nffrpxs-Hjdxft ke [facility] 400 DO Work Phone: 04-03-2022 10:31-0500 Systolic blood pressure 111 mm[Hg] Daksha Abdirahman Turner Work Phone: NW-Eeqecqi-Kkxsjl ke [facility] 400 DO Work Phone: 03-11-2022 13:10-0500 Body weight 118.84 kg Haylee Wilburn MD Work Phone: [facility] 03-11-2022 13:10-0500 Diastolic blood pressure 84 mm[Hg] Haylee Wilburn MD Work Phone: [facility] 03-11-2022 13:10-0500 Heart rate 78 /min Haylee Wilburn MD Work Phone: [facility] 03-11-2022 13:10-0500 Respiratory rate 16 /min Haylee Wilburn MD Work Phone: [facility] 03-11-2022 13:10-0500 Systolic blood pressure 134 mm[Hg] Haylee Wilburn MD Work Phone: [facility] 02-17-2022 11:30-0500 Body weight 114.76 kg Haylee Wilburn MD Work Phone: [facility] 02-17-2022 11:30-0500 Diastolic blood pressure 74 mm[Hg] Haylee Wilburn MD Work Phone: [facility] 02-17-2022 11:30-0500 Heart rate 72 /min Haylee Wilburn MD Work Phone: [facility] 02-17-2022 11:30-0500 Respiratory rate 16 /min Haylee Wilburn MD Work Phone: [facility] 02-17-2022 11:30-0500 Systolic blood pressure 132 mm[Hg] Haylee Wilburn MD Work Phone: [facility] 02-16-2022 11:03-0500 Diastolic blood pressure 64 mm[Hg] Sayra Tello MD Work Phone: [facility] 02-16-2022 11:03-0500 Systolic blood pressure 90 mm[Hg] Sayra Tello MD Work Phone: [facility] 02-16-2022 10:55-0500 Body height 180.3 cm Sayra Tello MD Work Phone: [facility] 02-16-2022 10:55-0500 Body weight 115.67 kg Sayra Tello MD Work Phone: [facility] 02-16-2022 10:55-0500 Heart rate 51 /min Sayra Tello MD Work Phone: [facility] 02-16-2022 10:55-0500 SaO2% (BldA) [Mass fraction] 94 % Sayra Tello MD Work Phone: [facility] 02-13-2022 14:10-0500 Body temperature 98.2 [degF] Suman Peterson [employer] Work Phone: [facility] 02-13-2022 14:10-0500 Body weight 119.75 kg Suman Peterson [employer] Work Phone: [facility] 02-13-2022 14:10-0500 Diastolic blood pressure 87 mm[Hg] Suman Peterson [employer] Work Phone: [facility] 02-13-2022 14:10-0500 Heart rate 64 /min Suman Peterson [employer] Work Phone: [facility] 02-13-2022 14:10-0500 Respiratory rate 22 /min Suman Peterson [employer] Work Phone: [facility] 02-13-2022 14:10-0500 SaO2% (BldA) [Mass fraction] 94 % Suman Peterson [employer] Work Phone: [facility] 02-13-2022 14:10-0500 Systolic blood pressure 138 mm[Hg] Suman Peterson [employer] Work Phone: [facility] 02-10-2022 14:00-0500 Body temperature 97.52 [degF] Daksha Turner Other Phone: [facility] 02-10-2022 14:00-0500 Diastolic blood pressure 100 mm[Hg] Daksha Turner Other Phone: [facility] 02-10-2022 14:00-0500 Heart rate 87 /min Daksha Turner Other Phone: [facility] 02-10-2022 14:00-0500 Respiratory rate 18 /min Daksha Turner Other Phone: [facility] 02-10-2022 14:00-0500 SaO2% (BldA) [Mass fraction] 94 % Daksha Turner Other Phone: [facility] 02-10-2022 14:00-0500 Systolic blood pressure 126 mm[Hg] Daksha Turner Other Phone: [facility] 01-29-2022 15:08-0500 Respiratory rate 20 /min Dr. Jose Ramon Turner Work Phone: [facility] 01-29-2022 14:36-0500 Diastolic blood pressure 128 mm[Hg] Dr. Jose Ramon Turner Work Phone: [facility] 01-29-2022 14:36-0500 Heart rate 101 /min Dr. Jose Ramon Turner Work Phone: [facility] 01-29-2022 14:36-0500 SaO2% (BldA) [Mass fraction] 98 % Dr. Jose Ramon Turner Work Phone: [facility] 01-29-2022 14:36-0500 Systolic blood pressure 157 mm[Hg] Dr. Jose Ramon Turner Work Phone: [facility] 01-29-2022 14:00-0500 Inhaled oxygen flow rate 2 L/min Dr. Jose Ramon Turner Work Phone: [facility] 01-29-2022 11:54-0500 Body height 177.[address] Jose Ramon Turner Work Phone: [facility] Work Phone: 01-29-2022 11:54-0500 Body mass index (BMI) [Ratio] 40.1 kg/m2 Dr. Jose Ramon Turner Work Phone: [facility] 01-29-2022 11:54-0500 Body temperature 97.6 [degF] Dr. Jose Ramon Turner Work Phone: [facility] 01-29-2022 11:54-0500 Body weight 126.[address] Jose Ramon Turner Work Phone: [facility] 01-20-2022 20:25-0500 Diastolic blood pressure 103 mm[Hg] Dr. Jose Ramon Turner Work Phone: [facility] 01-20-2022 20:25-0500 Heart rate 88 /min Dr. Jose Ramon Turner Work Phone: [facility] 01-20-2022 20:25-0500 Respiratory rate 31 /min Dr. Jose Ramon Turner Work Phone: [facility] 01-20-2022 20:25-0500 SaO2% (BldA) [Mass fraction] 97 % Dr. Jose Ramon Turner Work Phone: [facility] 01-20-2022 20:25-0500 Systolic blood pressure 136 mm[Hg] Dr. Jose Ramon Turner Work Phone: [facility] 01-20-2022 18:43-0500 Body height 177.[address] Jose Ramon Turner Work Phone: [facility] Work Phone: 01-20-2022 18:43-0500 Body mass index (BMI) [Ratio] 30.9 kg/m2 Dr. Jose Ramon Turner Work Phone: [facility] 01-20-2022 18:43-0500 Body temperature 97.7 [degF] Dr. Jose Ramon Turner Work Phone: [facility] 01-20-2022 18:43-0500 Body weight 97.[address] Jose Ramon Turner Work Phone: [facility] 12-09-2021 10:15-0400 Body height 177.8 cm Alfredo Xavier MD Work Phone: [facility] 12-09-2021 10:15-0400 Body weight 114.31 kg Alfredo Xavier MD Work Phone: [facility] 12-09-2021 10:15-0400 Diastolic blood pressure 91 mm[Hg] Alfredo Xavier MD Work Phone: [facility] 12-09-2021 10:15-0400 Heart rate 98 /min Alfredo Xavier MD Work Phone: [facility] 12-09-2021 10:15-0400 Respiratory rate 22 /min Alfredo Xavier MD Work Phone: [facility] 12-09-2021 10:15-0400 SaO2% (BldA) [Mass fraction] 96 % Alfredo Xavier MD Work Phone: [facility] 12-09-2021 10:15-0400 Systolic blood pressure 131 mm[Hg] Alfredo Xavier MD Work Phone: [facility] 12-09-2021 07:44-0400 Body temperature 97 [degF] Dr. Jose Ramon Turner Work Phone: [facility] Work Phone: 12-09-2021 07:44-0400 Diastolic blood pressure 88 mm[Hg] Dr. Jose Ramon Turner Work Phone: [facility] Work Phone: 12-09-2021 07:44-0400 Heart rate 61 /min Dr. Jose Ramon Turner Work Phone: [facility] Work Phone: 12-09-2021 07:44-0400 Respiratory rate 16 /min Dr. Jose Ramon Turner Work Phone: [facility] Work Phone: 12-09-2021 07:44-0400 SaO2% (BldA) [Mass fraction] 96 % Dr. Jose Ramon Turner Work Phone: [facility] Work Phone: 12-09-2021 07:44-0400 Systolic blood pressure 112 mm[Hg] Dr. Jose Ramon Turner Work Phone: [facility] Work Phone: 12-08-2021 17:06-0400 Inhaled oxygen flow rate 2 L/min Dr. Jose Ramon Turner Work Phone: [facility] Work Phone: 12-08-2021 12:50-0400 Body weight 116.[address] Jose Ramon Turner Work Phone: [facility] Work Phone: 12-07-2021 16:40-0400 Body mass index (BMI) [Ratio] 36.7 kg/m2 Dr. Jose Ramon Turner Work Phone: [facility] Work Phone: 12-07-2021 16:29-0400 Body temperature 98.4 [degF] [facility] Work Phone: 12-07-2021 16:29-0400 Diastolic blood pressure 78 mm[Hg] [facility] Work Phone: 12-07-2021 16:29-0400 Heart rate 98 /min [facility] Work Phone: 12-07-2021 16:29-0400 Inhaled oxygen flow rate 2 L/min [facility] Work Phone: 12-07-2021 16:29-0400 Respiratory rate 24 /min [facility] Work Phone: 12-07-2021 16:29-0400 SaO2% (BldA) [Mass fraction] 97 % [facility] Work Phone: 12-07-2021 16:29-0400 Systolic blood pressure 134 mm[Hg] [facility] Work Phone: 12-07-2021 13:38-0400 Body height 177.8 cm [facility] Work Phone: 12-07-2021 13:38-0400 Body mass index (BMI) [Ratio] 36.6 kg/m2 [facility] Work Phone: 12-07-2021 13:38-0400 Body weight 115.66 kg [facility] Work Phone: 11-19-2021 08:48-0400 Body height 177.8 cm Haylee Wilburn MD Work Phone: [facility] 11-19-2021 08:48-0400 Body weight 118.84 kg Haylee Wilburn MD Work Phone: [facility] 11-19-2021 08:48-0400 Diastolic blood pressure 82 mm[Hg] Haylee Wilburn MD Work Phone: [facility] 11-19-2021 08:48-0400 Heart rate 76 /min Haylee Wilburn MD Work Phone: [facility] 11-19-2021 08:48-0400 Respiratory rate 18 /min Haylee Wilburn MD Work Phone: [facility] 11-19-2021 08:48-0400 Systolic blood pressure 130 mm[Hg] Haylee Wilburn MD Work Phone: [facility] 10-27-2021 11:35-0400 Body height 177.8 cm Pacc 2 Work Phone: [facility] 10-27-2021 11:35-0400 Body temperature 97.7 [degF] Pacc 2 Work Phone: [facility] 10-27-2021 11:35-0400 Body weight 118.39 kg Pacc 2 Work Phone: [facility] 10-27-2021 11:35-0400 Diastolic blood pressure 88 mm[Hg] Pacc 2 Work Phone: [facility] 10-27-2021 11:35-0400 Heart rate 77 /min Pacc 2 Work Phone: [facility] 10-27-2021 11:35-0400 SaO2% (BldA) [Mass fraction] 96 % Pacc 2 Work Phone: [facility] 10-27-2021 11:35-0400 Systolic blood pressure 127 mm[Hg] Pacc 2 Work Phone: [facility] 10-09-2021 10:24-0400 Body temperature 97.7 [degF] Godfrey Maroli [employer] Work Phone: [facility] 10-09-2021 10:24-0400 Body weight 118.84 kg Godfrey Maroli [employer] Work Phone: [facility] 10-09-2021 10:24-0400 Diastolic blood pressure 89 mm[Hg] Godfrey Maroli [employer] Work Phone: [facility] 10-09-2021 10:24-0400 Heart rate 74 /min Godfrey Maroli [employer] Work Phone: [facility] 10-09-2021 10:24-0400 Respiratory rate 20 /min Godfrey Maroli [employer] Work Phone: [facility] 10-09-2021 10:24-0400 SaO2% (BldA) [Mass fraction] 97 % Godfrey Maroli [employer] Work Phone: [facility] 10-09-2021 10:24-0400 Systolic blood pressure 130 mm[Hg] Godfrey Maroli [employer] Work Phone: [facility] 09-22-2021 12:16-0400 Body height 180.3 cm Chaka Doris [employer] Work Phone: [facility] 09-22-2021 12:16-0400 Body weight 125.19 kg Chaka Doris [employer] Work Phone: [facility] 09-22-2021 12:16-0400 Diastolic blood pressure 90 mm[Hg] Chaka Doris [employer] Work Phone: [facility] 09-22-2021 12:16-0400 Heart rate 90 /min Chaka Doris [employer] Work Phone: [facility] 09-22-2021 12:16-0400 Respiratory rate 18 /min Chaka George [employer] Work Phone: [facility] 09-22-2021 12:16-0400 SaO2% (BldA) [Mass fraction] 97 % Chaka George [employer] Work Phone: [facility] 09-22-2021 12:16-0400 Systolic blood pressure 128 mm[Hg] Chaka George [employer] Work Phone: [facility] 09-11-2021 13:30-0400 Body temperature 97.11 [degF] Kenneth Chester MD Work Phone: [facility] 09-11-2021 13:30-0400 Body weight 118.07 kg Kenneth Chester MD Work Phone: [facility] 09-11-2021 13:30-0400 Diastolic blood pressure 89 mm[Hg] Kenneth Chester MD Work Phone: [facility] 09-11-2021 13:30-0400 Heart rate 92 /min Kenneth Chester MD Work Phone: [facility] 09-11-2021 13:30-0400 Respiratory rate 20 /min Kenneth Chester MD Work Phone: [facility] 09-11-2021 13:30-0400 SaO2% (BldA) [Mass fraction] 95 % Kenneth Chester MD Work Phone: [facility] 09-11-2021 13:30-0400 Systolic blood pressure 139 mm[Hg] Kenneth Chester MD Work Phone: [facility] 09-02-2021 14:09-0400 Body temperature 97.9 [degF] Taussig (Trac) Work Phone: [facility] 09-02-2021 14:09-0400 Body weight 118.16 kg Taussig (Trac) Work Phone: [facility] 09-02-2021 14:09-0400 Diastolic blood pressure 99 mm[Hg] Taussig (Trac) Work Phone: [facility] 09-02-2021 14:09-0400 Heart rate 105 /min Taussig (Trac) Work Phone: [facility] 09-02-2021 14:09-0400 Respiratory rate 22 /min Taussig (Trac) Work Phone: [facility] 09-02-2021 14:09-0400 SaO2% (BldA) [Mass fraction] 100 % Taussig (Trac) Work Phone: [facility] 09-02-2021 14:09-0400 Systolic blood pressure 135 mm[Hg] Taussig (Trac) Work Phone: [facility] 08-19-2021 11:57-0400 Body temperature 98.1 [degF] Godfrey Clayton RN [facility] 08-19-2021 11:57-0400 Respiratory rate 18 /min Godfrey Clayton RN [facility] 08-19-2021 10:05-0400 Body weight 113.81 kg Lalo Acevedo MD Work Phone: [facility] 08-19-2021 10:05-0400 Diastolic blood pressure 102 mm[Hg] Lalo Acevedo MD Work Phone: [facility] 08-19-2021 10:05-0400 Heart rate 90 /min Lalo Acevedo MD Work Phone: [facility] 08-19-2021 10:05-0400 SaO2% (BldA) [Mass fraction] 96 % Lalo Acevedo MD Work Phone: [facility] 08-19-2021 10:05-0400 Systolic blood pressure 136 mm[Hg] Lalo Acevedo MD Work Phone: [facility] 08-08-2021 09:19-0400 Body temperature 99 [degF] Godfrey Maroli [employer] Work Phone: [facility] 08-08-2021 09:19-0400 Body weight 117.98 kg Godfrey Haskinsoli [employer] Work Phone: [facility] 08-08-2021 09:19-0400 Diastolic blood pressure 98 mm[Hg] Godfrey Maroli [employer] Work Phone: [facility] 08-08-2021 09:19-0400 Heart rate 109 /min Godfrey Maroli [employer] Work Phone: [facility] 08-08-2021 09:19-0400 Respiratory rate 20 /min Godfrey Maroli [employer] Work Phone: [facility] 08-08-2021 09:19-0400 SaO2% (BldA) [Mass fraction] 95 % Godfrey Haskinsoli [employer] Work Phone: [facility] 08-08-2021 09:19-0400 Systolic blood pressure 141 mm[Hg] Godfrey Maroli [employer] Work Phone: [facility] 08-06-2021 09:56-0400 Body temperature 98.1 [degF] Godfrey Clayton RN [facility] 08-06-2021 09:56-0400 Body weight 118.3 kg Godfrey Clayton RN [facility] 08-06-2021 09:56-0400 Diastolic blood pressure 92 mm[Hg] Godfrey Clayton RN [facility] 08-06-2021 09:56-0400 Heart rate 99 /min Godfrey Clayton RN [facility] 08-06-2021 09:56-0400 Respiratory rate 20 /min Godfrey Clayton RN [facility] 08-06-2021 09:56-0400 SaO2% (BldA) [Mass fraction] 99 % Godfrey Clayton RN [facility] 08-06-2021 09:56-0400 Systolic blood pressure 144 mm[Hg] Godfrey Clayton RN [facility] 07-31-2021 09:23-0400 Diastolic blood pressure 103 mm[Hg] Lalo Acevedo MD Work Phone: [facility] 07-31-2021 09:23-0400 Heart rate 72 /min Lalo Acevedo MD Work Phone: [facility] 07-31-2021 09:23-0400 Respiratory rate 12 /min Lalo Acevedo MD Work Phone: [facility] 07-31-2021 09:23-0400 SaO2% (BldA) [Mass fraction] 95 % Lalo Acevedo MD Work Phone: [facility] 07-31-2021 09:23-0400 Systolic blood pressure 147 mm[Hg] Lalo Acevedo MD Work Phone: [facility] 07-24-2021 10:13-0400 Body temperature 98.29 [degF] Godfrey Maroli [employer] Work Phone: [facility] 07-24-2021 10:13-0400 Body weight 118 kg Godfrey Maroli [employer] Work Phone: [facility] 07-24-2021 10:13-0400 Diastolic blood pressure 92 mm[Hg] Godfrey Maroli [employer] Work Phone: [facility] 07-24-2021 10:13-0400 Heart rate 88 /min Godfrey Maroli [employer] Work Phone: [facility] 07-24-2021 10:13-0400 Respiratory rate 20 /min Godfrey Maroli [employer] Work Phone: [facility] 07-24-2021 10:13-0400 SaO2% (BldA) [Mass fraction] 99 % Godfrey Maroli [employer] Work Phone: [facility] 07-24-2021 10:13-0400 Systolic blood pressure 146 mm[Hg] Godfrey Maroli [employer] Work Phone: [facility] 07-21-2021 08:57-0400 Diastolic blood pressure 91 mm[Hg] Godfrey Clayton RN [facility] 07-21-2021 08:57-0400 Systolic blood pressure 146 mm[Hg] Godfrey Clayton RN [facility] 07-21-2021 08:49-0400 Body temperature 98.2 [degF] Godfrey Clayton RN [facility] 07-21-2021 08:49-0400 Heart rate 72 /min Godfrey Clayton RN [facility] ic 07-21-2021 08:49-0400 Respiratory rate 20 /min Godfrey Clayton RN [facility] 07-21-2021 08:49-0400 SaO2% (BldA) [Mass fraction] 99 % Godfrey Clayton RN [facility] 07-14-2021 14:42-0400 Body temperature 99.5 [degF] Godfrey Maroli [employer] Work Phone: [facility] 07-14-2021 14:42-0400 Body weight 118.48 kg Godfrey Maroli [employer] Work Phone: [facility] 07-14-2021 14:42-0400 Diastolic blood pressure 99 mm[Hg] Godfrey Maroli [employer] Work Phone: [facility] 07-14-2021 14:42-0400 Heart rate 77 /min Godfrey Maroli [employer] Work Phone: [facility] 07-14-2021 14:42-0400 Respiratory rate 20 /min Godfrey Maroli [employer] Work Phone: [facility] 07-14-2021 14:42-0400 SaO2% (BldA) [Mass fraction] 100 % Godfrey Maroli [employer] Work Phone: [facility] 07-14-2021 14:42-0400 Systolic blood pressure 143 mm[Hg] Godfrey Maroli [employer] Work Phone: [facility] 07-02-2021 11:53-0400 Diastolic blood pressure 89 mm[Hg] Kenneth Ornstein MD Work Phone: [facility] 07-02-2021 11:53-0400 Heart rate 71 /min Kenneth Chester MD Work Phone: [facility] 07-02-2021 11:53-0400 Respiratory rate 20 /min Kenneth Chester MD Work Phone: [facility] 07-02-2021 11:53-0400 SaO2% (BldA) [Mass fraction] 98 % Kenneth Chester MD Work Phone: [facility] 07-02-2021 11:53-0400 Systolic blood pressure 150 mm[Hg] Kenneth Chester MD Work Phone: [facility] 06-23-2021 10:56-0400 Body weight 115.03 kg Adriana Hodge MD Work Phone: [facility] 06-23-2021 10:56-0400 Diastolic blood pressure 92 mm[Hg] Adriana Hodge MD Work Phone: [facility] 06-23-2021 10:56-0400 Heart rate 59 /min Adriana Hodge MD Work Phone: [facility] 06-23-2021 10:56-0400 Systolic blood pressure 142 mm[Hg] Adriana Hodge MD Work Phone: [facility] 06-19-2021 19:35-0400 Body temperature 98.6 [degF] Family Unavailable [facility] 06-19-2021 19:35-0400 Diastolic blood pressure 90 mm[Hg] Family Unavailable [facility] 06-19-2021 19:35-0400 Heart rate 71 /min Family Unavailable [facility] 06-19-2021 19:35-0400 Respiratory rate 20 /min Family Unavailable [facility] 06-19-2021 19:35-0400 SaO2% (BldA) [Mass fraction] 100 % Family Unavailable [facility] 06-19-2021 19:35-0400 Systolic blood pressure 156 mm[Hg] Family Unavailable [facility] 06-19-2021 15:47-0400 Body height 180.34 cm Family Unavailable [facility] 06-19-2021 15:47-0400 Body mass index (BMI) [Ratio] 34.1 kg/m2 Family Unavailable [facility] 06-19-2021 15:47-0400 Body weight 111 kg Family Unavailable [facility] Encounters Encounter Date Encounter Type Care Provider Facility Start: 10-16-2024 ambulatory Daksha Nicholas lity:[facility] Start: 09-12-2024 ambulatory Daksha Arthuri lity:[facility] Start: 08-14-2024 End: 09-04-[address] Daksha Turner MD -Nutritional Services Work Phone: Start: 08-14-[address] Fazal Turner MD -Nutritional Services Work Phone: Start: 08-14-2024 End: 09-04-[address] Daksha Turner MD Work Phone: -Nutritional Services Start: 08-14-2024 End: 08-14-2024 Patient encounter procedure Gini CONLEY -[facility] Work Phone: Start: 08-14-2024 End: 08-14-[address] Daksha Turner MD Work Phone: [facility] Work Phone: Start: 08-14-2024 End: 08-14-2024 ambulatory Daksha Turner Facility:[facility] Start: 08-01-2024 ambulatory Daksha Arthuri lity:[facility] Start: 07-18-2024 ambulatory Daksha Nicholas lity:[facility] Start: 06-20-2024 End: 06-20-[address] Daksha Turner MD Work Phone: [facility] Work Phone: Start: 06-20-2024 End: 06-20-[address] Dangelo Botello MD -[facility] Work Phone: Start: 06-20-2024 End: 06-20-2024 ambulatory Dangelo Botello Facility:[facility] Start: 06-13-2024 End: 06-13-[address] Daksha Turner MD Work Phone: [facility] Work Phone: Start: 06-13-2024 End: 06-13-[address] Dangelo Botello MD -Cat Scan, [facility] Work Phone: Start: 06-13-2024 End: 06-13-2024 [facility] Start: 06-05-2024 End: 06-05-[address] Daksha Turner MD -Nutritional Services Work Phone: Start: 06-05-2024 End: 06-05-[address] Daksha Turner MD Work Phone: [facility] Work Phone: Start: 03-22-2024 End: 03-22-[address] Isidra Chiu DO -Laboratory Work Phone: Start: 03-22-2024 End: 03-22-2024 [facility] Start: 02-08-2024 End: 02-08-[address] Daksha LemaCat Luzma, [facility] Work Phone: Start: 02-08-2024 End: 02-08-2024 ambulatory Daksha Turner Facility:[facility] Start: 01-11-2024 End: 01-11-2024 [facility] Start: 12-22-2023 End: 12-22-2023 [facility] [place] [place] Start: 12-22-2023 End: 12-22-2023 [facility] Start: 10-07-2023 End: 10-07-2023 [facility] Start: 05-27-2023 End: 05-27-[address] Jose Ramon Turner Work Phone: [facility] Work Phone: Start: 05-27-2023 End: 05-27-[address] Jose Ramon Turner Work Phone: [facility]-Laboratory, [place] Work Phone: Start: 05-21-2023 End: 05-21-[address] Jose Ramon Turner Work Phone: [facility] Work Phone: Start: 05-21-2023 End: 05-21-[address] Jose Ramon Turner Work Phone: [facility]-Laboratory, [place] Work Phone: Start: 05-20-2023 End: 05-20-[address] Jose Ramon Turner Work Phone: [facility] Work Phone: Start: 05-20-2023 End: 05-20-[address] Jose Ramon Turner Work Phone: [facility]-Laboratory Work Phone: Start: 04-26-2023 End: 04-26-[address] Jose Ramon Turner Work Phone: [facility] Work Phone: Start: 04-26-2023 End: 04-26-[address] Jose Ramon Turner Work Phone: [facility]-Radiology, [place] Work Phone: Start: 04-12-[address] Fazal Turner Work Phone: [facility] Start: 04-12-2023 End: 04-12-[address] Jose Ramon Turner Work Phone: [facility] Work Phone: Start: 03-04-2023 End: 03-04-[address] Jose Ramon Turner Work Phone: [facility] Work Phone: Start: 03-04-2023 End: 03-04-[address] Jose Ramon Turner Work Phone: [facility]-Cat Scan, [facility] Work Phone: Start: 02-12-2023 End: 02-12-[address] Jose Ramon Turner Work Phone: [facility] Work Phone: Start: 02-12-2023 End: 02-12-[address] Jose Ramon Turner Work Phone: [facility]-Laboratory, [place] Work Phone: Start: 12-30-2022 End: 12-30-[address] Jose Ramon Turner Work Phone: [facility] Work Phone: Start: 12-30-2022 End: 12-30-[address] Jose Ramon Turner [facility] Work [facility]: Start: 12-17-2022 Non-patient / Non-visit Dr. Sejal Turner Work Phone: [facility] Work Phone: Start: 12-16-2022 End: 12-17-2022 Evaluation and management of inpatient Dr. Jose Ramon Turner Work Phone: [facility]-Progressive Care Unit Work Phone: Start: 12-16-2022 Non-patient / Non-visit Dr. Sejal Turner Work Phone: [facility] Work Phone: Start: 12-15-2022 Non-patient / Non-visit Dr. Sejal Turner Work Phone: [facility] Work Phone: Start: 11-12-2022 End: 11-12-[address] Jose Ramon Turner Work Phone: [facility] Work Phone: Start: 09-29-2022 End: 09-29-[address] Jose Ramon Turner Work Phone: [facility] Work Phone: Start: 09-03-2022 End: 09-03-[address] Jose Ramon Turner Work Phone: [facility] Work Phone: Start: 09-03-[address] Fazal Turner Work Phone: [facility] Start: 09-01-2022 End: 09-01-[address] Jose Ramon Turner Work Phone: [facility] Work Phone: Start: 09-01-2022 End: 09-01-[address] Jose Ramon Turner Work Phone: [facility] Work Phone: Start: 07-17-[address] Jose Ramon Turner Facility:[id number] Start: 07-16-2022 Non-patient / Non-visit Dr. Sejal Turner Work Phone: [facility] Start: 07-16-2022 End: 07-16-[address] Jose Ramon Turner Work Phone: [facility]-Pulmonary Services/Neurology Work Phone: Start: 06-29-2022 Non-patient / Non-visit Dr. Sejal Turner Work Phone: [facility] Start: 06-28-2022 End: 06-29-2022 Evaluation and management of inpatient Dr. Jose Ramon Tunrer Work Phone: [facility] Start: 05-27-2022 End: 05-27-[address] Jose Ramon Turner Work Phone: [facility] Start: 05-27-2022 End: 05-27-[address] Jose Ramon Turner Work Phone: [facility] Start: 05-20-2022 Non-patient / Non-visit Dr. Sejal Turner Work Phone: [facility] Start: 05-19-2022 Non-patient / Non-visit Dr. Sejal Turner Work Phone: [facility] Start: 05-18-2022 End: 05-20-2022 Evaluation and management of inpatient Dr. Jose Ramon Turner Work Phone: [facility] Start: 04-16-2022 Non-patient / Non-visit Dr. Sejal Turner Work Phone: [facility] Start: 04-15-2022 Non-patient / Non-visit Dr. Sejal Turner Work Phone: [facility] Start: 04-15-2022 End: 04-15-2022 Non-patient / Non-visit Dr. Jose Ramon Turner Work Phone: [facility] Start: 04-14-2022 Non-patient / Non-visit Dr. Sejal Turner Work Phone: [facility] Start: 04-14-2022 Non-patient / Non-visit Dr. Sejal Turner Work Phone: [facility] Start: 04-13-2022 End: 04-16-2022 Evaluation and management of inpatient [facility]Int[facility] Start: 04-13-2022 End: 04-13-[address] Jose Ramon uTrner Work Phone: [facility] Work Phone: Start: 04-13-2022 End: 04-13-2022 Patient encounter procedure [facility] Start: 04-09-2022 End: 04-10-2022 ambulatory DAKSHA TURNER Facility:[id number] Start: 04-09-2022 End: 04-09-[address] Comment on above: Malignant neoplasm o f right kidney, except renal pelvis (HCC) (Primary Dx) Start: 04-03-2022 Postop follow up vis it related to original px Daksha Turnre Work Phone: [facility] [employer] 400 DO Work Phone: Start: 04-03-[address] Jose Ramon Turner Facility:[id number] Start: 04-02-2022 Telephone encounter America Schwartz paraprofessional education assistant Oncology Comment on above: Appointment Appointment (No show ) Start: 03-26-2022 ambulatory HAYLEE WILBURN Facility :[id number] Start: 03-26-2022 End: 03-26-2022 Subsequent hospital visit by physician Ct Prep [facility] Work Phone: Radiology CT Scan Comment on above: Malignant neoplasm o f right kidney, except renal pelvis [C64.1] Start: 03-25-2022 Telephone encounter Haylee Wilburn MD Work Phone: Hematology Oncology Comment on above: Appointment; Care Co ordinator - Other Start: 03-23-2022 ambulatory Haley MARTINEZ(R) [facility] Comment on above: Radiology [place] Start: 03-23-2022 Patient encounter procedure Haley MARTINEZ(R) [facility] Start: 03-23-2022 End: 03-23-2022 Subsequent hospital visit by physician [facility] 1 Work Phone: Nuclear Medicine Comment on above: Renal cell carcinoma of right kidney (HCC) [C64.1] Start: 03-16-2022 Refill Haylee Wilburn MD Work Phone: Hematology/Oncology Comment on above: Refill Request (Inly ta to [facility]) Start: 03-12-2022 ambulatory Malachi Schaffer [facility] Start: 03-12-2022 Patient encounter procedure Malachi Schaffer [facility] Comment on above: SPP Oral Oncology/he matology - Treatment Referral (Inlyta); Insurance Authorization (Pending PA) Start: 03-12-2022 Telephone encounter America Schwartz RN Hematology Oncology Comment on above: Appointment Start: 03-11-2022 End: 03-12-2022 ambulatory HAYLEE WILBURN Facility:[id number] Start: 03-11-2022 End: 03-11-2022 Office outpatient visit 25 minutes Haylee Wilburn MD Work Phone: Hematology Oncology Comment on above: Renal cell carcinoma of right kidney (HCC) (Primary Dx) Start: 02-26-2022 ambulatory SAYRA TELLO Fa cility:[id number] Start: 02-26-2022 End: 02-26-2022 Subsequent hospital visit by physician Echo Lab 3 [facility] Comment on above: Acute decompensated heart failure (HCC) [I50.9] Start: 02-17-2022 End: 02-18-2022 ambulatory HAYLEE WILBURN Facility:[id number] Start: 02-17-2022 End: 02-17-2022 Office outpatient visit 25 minutes Haylee Wilburn MD Work Phone: Hematology Oncology Comment on above: Metastatic renal maggie l carcinoma, unspecified laterality (HCC) (Primary Dx) Start: 02-16-2022 End: 02-16-2022 ambulatory SAYRA TELLO Facility:[id number] Start: 02-16-2022 End: 02-16-2022 Office outpatient new 60 minutes Sayra Tello MD Work Phone: [facility] Comment on above: Paroxysmal atrial fi brillation (HCC) (Primary Dx); Nonrheumatic mitral valve regurgitation; Acute decompensated heart failure (HCC); Essential hypertension; Tobacco use disorder; NIMCO (obstructive sleep apnea) Start: 02-13-2022 End: 02-14-2022 ambulatory SUMAN PETERSON Facility:[id number] Start: 02-13-2022 End: 02-13-2022 Patient encounter procedure Suman Peterson [employer].MINE PATROL Work Phone: Radiation Oncology Comment on above: Renal cell carcinoma of right kidney metastatic to other site (HCC) (Primary Dx) Start: 02-11-2022 Chart abstracting Adrienne Lee MA [facility] Start: 02-06-2022 [facility], Provider: Aravind Hernandez, Status: Pen, Time: 9:30 AM Daksha Turner Work Phone: [facility] [employer] 400 DO Work Phone: Start: 02-06-2022 End: 02-10-2022 Evaluation and management of inpatient Aravind Hernandez [place] [id number] Start: 02-05-2022 Telephone encounter Sayra Tello MD Work Phone: [facility] Comment on above: Patient Question Start: 02-05-2022 Chart Update Daksha Turner Work Phone: BF-Hlbcoyo-Hqgicnnp [employer] 400 DO Work Phone: Start: 02-03-2022 Chart Update Daksha Turner Work Phone: [facility] [employer] 400 DO Work Phone: Start: 01-29-2022 End: 01-29-2022 Emergency department patient visit Dr. Jose Ramon Turner Work Phone: [facility]-Emergency Department Start: 01-27-[address] ARAVIND Barragan acility:[id number] Start: 01-27-2022 Encounter for blood typing Dr. ARAVIND RODRIGUEZ [facility] Start: 01-27-2022 Encounter for preprocedural laboratory examination Dr. ARAVIND RODRIGUEZ [facility] Start: 01-23-2022 ambulatory Krish Scott Work Phone: Urology Start: 01-22-2022 Refill Kitty cook PA-C Work Phone: Hematology Oncology Comment on above: Refill Request Start: 01-20-2022 End: 01-20-2022 Emergency department patient visit Dr. Jose Ramon Turner Work Phone: [facility]-Emergency Department Start: 01-19-2022 ambulatory KITTY Rojas ty:[id number] Start: 01-19-2022 End: 01-19-2022 Subsequent hospital visit by physician Xr [facility] [address] [facility] Comment on above: Renal cell carcinoma of right kidney (HCC) [C64.1] Start: 2022 Patient encounter procedure Alfredo Xavier MD Work Phone: [facility] Start: 2022 Radiation Oncology Note Alfredo Xavier MD Work Phone: Radiation Oncology Comment on above: Completion Note Start: 12-30-2021 ambulatory Julee Nash RN [facility] & Start: 12-30-2021 Telephone encounter Adriana glynn MD Work Phone: Urology Comment on above: Informed Consent Start: 12-28-2021 Telephone encounter Adriana glynn MD Work Phone: Urology Comment on above: Laboratory Apparatus Glass Blower - O ther; Patient Update Start: 12-27-2021 Telephone encounter Adriana glynn MD Work Phone: Urology Comment on above: Patient Update Start: 12-26-2021 End: 12-26-2021 ambulatory ALFREDO XAVIER Facility:[id number] Start: 12-25-2021 End: 12-25-2021 ambulatory ALFREDO XAVIER Facility:[id number] Start: 12-24-2021 End: 12-24-2021 ambulatory ALFREDO XAVIER Facility:[id number] Start: 12-23-2021 End: 12-23-2021 ambulatory ALFREDO XAVIER Facility:[id number] Start: 12-22-2021 End: 12-22-2021 ambulatory ALFREDO XAVIER Facility:[id number] Start: 12-12-2021 Patient encounter procedure Alfredo Xavier MD Work Phone: [facility] Start: 12-12-2021 Radiation Oncology Note Alfredo Xavier MD Work Phone: Radiation Oncology Comment on above: Treatment Planning Simulation Note Start: 12-12-2021 End: 12-12-2021 ambulatory ALFREDO XAVIER Facility:[id number] Start: 12-09-2021 End: 12-09-2021 ambulatory [facility] Start: 12-09-2021 [facility] visit new patient Noreen Carreraake Work Phone: [facility] Comment on above: New patient, to genesis griggs relationship; Invalid number; Letter Request Start: 12-09-2021 End: 12-09-2021 Office outpatient visit 15 minutes Alfredo Xavier MD Work Phone: Radiation Oncology Comment on above: Renal cell carcinoma of right kidney (HCC) (Primary Dx) Start: 12-09-2021 Non-patient / Non-visit Dr. Sejal Turner Work Phone: [facility] Start: 12-08-2021 Non-patient / Non-visit Dr. Sejal Turner Work Phone: [facility] Start: 12-07-2021 Non-patient / Non-visit Dr. Sejal Turner Work Phone: [facility] Start: 12-07-2021 End: 12-09-2021 Evaluation and management of inpatient [facility] Start: 11-29-2021 Telephone encounter Adriana glynn MD Work Phone: Urology Comment on above: Results; Patient Upd ate; Laboratory Apparatus Glass Blower - Other Start: 11-24-2021 Telephone encounter America Schwartz paraprofessional education assistant Oncology Comment on above: Patient Update (Call ed patient to inform him that the speciality pharmacy is going to call to set-up delivery time for his chemo medication. Patient verbalized understanding. America Schwartz, RN, BSN, OCN/) Start: 11-20-2021 End: 11-20-2021 ambulatory DAKSHA MONTESMIZPAH Facility:[facility] Start: 11-20-2021 End: 11-20-2021 Subsequent hospital visit by physician Ct 2 Main Qb (I-Stat) Radiology Comment on above: Malignant neoplasm o f right kidney, except renal pelvis (HCC) [C64.1] Start: 11-19-2021 End: 11-20-2021 ambulatory HAYLEE WILBURN Facility:[id number] Start: 11-19-2021 End: 11-19-2021 Office outpatient visit 25 minutes Haylee Wilburn MD Work Phone: Hematology Oncology Comment on above: Metastatic renal maggie l carcinoma, unspecified laterality (HCC) (Primary Dx) Start: 11-06-2021 Telephone encounter Haylee pimentel Work Phone: Hematology Oncology Comment on above: Patient Update Laboratory Apparatus Glass Blower - O ther (Calling to get an update on the patient's surgery schedule (to see if it had been rescheduled), and to inform him that the speciality pharmacy is trying to get a hold of them to deliver his medication.) Start: 11-03-2021 Telephone encounter Haylee Wilburn MD Work Phone: Hematology Oncology Comment on above: Returning Patient's Call ( called to say that surgery was canceled d/t an imaging issue (CT). RNCC will f/u to see if surgery is rescheduled.) Start: 10-27-2021 End: 10-28-2021 ambulatory [facility] Facility:[facility] Start: 10-27-2021 End: 10-27-2021 [facility] Pac Main 2 Work Phone: Pre Anesthesia Comment on above: Preoperative examina tion (Primary Dx); Renal mass, right; Class 2 obesity due to excess calories without serious comorbidity with body mass index (BMI) of 37.0 to 37.9 in adult; NIMCO (obstructive sleep apnea); Tobacco use disorder; History of seizure; Essential hypertension; Mixed hyperlipidemia; New onset a-fib (HCC); Nonrheumatic mitral valve regurgitation; Acute decompensated heart failure (HCC); Gastroesophageal reflux disease without esophagitis; Prediabetes; Coronary artery disease involving kasaan coronary artery of kasaan heart, unspecified whether angina present PreOp Call (Cardiac Optimization, Warfarin Clearance) Start: 10-27-2021 End: 10-28-2021 ambulatory DAKSHA TURNER Facility:[facility] Start: 10-27-2021 Encounter for other preprocedural examination KENNETH CHESTER [facility] Start: 10-27-2021 End: 10-27-2021 Preprocedural examination done Pacc Main 2 Work Phone: Pre Anesthesia Start: 10-21-2021 Telephone encounter Haylee Wilburn MD Work Phone: Hematology Oncology Comment on above: Medication Problem ( [facility] and [facility] for cabzantinib and sent new order to [facility] speciality [facility].) Refill Request Start: 10-20-2021 End: 10-21-2021 ambulatory HAYLEE WILBURN Facility:[id number] Start: 10-16-2021 Telephone encounter Kenneth mayorga MD Work Phone: Hematology/Oncology Comment on above: Laboratory Apparatus Glass Blower - O ther Start: 10-14-2021 Telephone encounter Rahul Knight RN Hematology/Oncology Comment on above: Patient Update Patient Question Start: 10-09-2021 End: 10-10-2021 ambulatory KENNETH CHESTER Facility:[facility] Start: 10-09-2021 End: 10-09-2021 ambulatory Godfrey Ohara APRN.CNP Work Phone: Hematology/Oncology Comment on above: Renal cell carcinoma of right kidney (HCC) (Primary Dx); Atrial fibrillation, unspecified type (HCC) Start: 10-09-2021 End: 10-09-2021 Nursing evaluation of patient and report Rahul Knight RN Hematology/Oncology Comment on above: Renal cell carcinoma of right kidney (HCC) (Primary Dx) Start: 10-09-2021 End: 10-09-2021 Patient encounter procedure Godfrey Ohara APRN.MINE PATROL [facility] Start: 10-06-2021 [facility] Start: 09-29-2021 Patient Outreach [facility] Work Phone: Pharmacy Comment on above: Transition Of Care ( Pharmacy - Hospital Discharge 09/26/21); Heart Failure Follow Up Phone Call (relate care discharge follow up-1st attempt-no contact-left vm) Start: 09-25-2021 End: 09-25-2021 ambulatory DAKSHA TURNER Facility:[facility] Start: 09-25-2021 End: 09-25-2021 Patient encounter procedure Ip Transesophageal Echo Cardiology Comment on above: Paroxysmal atrial fi brillation (HCC) (Primary Dx) Start: 09-22-2021 End: 09-26-2021 Evaluation and management of inpatient DAKSHA TURNER Facility:[facility] Start: 09-22-2021 End: 09-22-2021 ambulatory DAKSHA TURNER Facility:[facility] Start: 09-22-2021 End: 09-22-2021 Patient encounter procedure Chaka George APRN.MINE PATROL Work Phone: Cardiology Comment on above: Paroxysmal atrial fi brillation (HCC) (Primary Dx); Mitral valve insufficiency, unspecified etiology; New onset a-fib (HCC); Essential hypertension; Mixed hyperlipidemia; 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 (HCC) Start: 09-19-2021 Telephone encounter Rahul Knight RN Hematology/Oncology Comment on above: Patient Question Start: 09-16-2021 Telephone encounter Rahul Knight RN Hematology/Oncology Comment on above: Patient Update Start: 09-11-2021 End: 09-12-2021 ambulatory DAKSHA TURNER Facility:[facility] Start: 09-11-2021 End: 09-11-2021 ambulatory Kenneth Chester MD Work Phone: Hematology/Oncology Comment on above: Metastatic renal maggie l carcinoma, unspecified laterality (HCC); Pneumonitis; Atrial fibrillation, unspecified type (HCC); Hypertension, unspecified type Start: 09-11-2021 End: 09-11-2021 Nursing evaluation of patient and report Godfrey Clayton RN Hematology/Oncology Comment on above: Renal cell carcinoma of right kidney (HCC) (Primary Dx) Start: 09-11-2021 End: 09-11-2021 Patient encounter procedure Kenneth Chester MD Work Phone: [facility] Start: 09-05-2021 Telephone encounter Kenneth mayorga MD Work Phone: Hematology/Oncology Comment on above: Laboratory Apparatus Glass Blower - O ther Start: 09-04-2021 End: 09-04-2021 Evaluation and management of inpatient FRANKLIN Abdirahman MONTESMIZPAH Facility:[facility] Start: 09-02-2021 End: 09-04-2021 Evaluation and management of inpatient FR[place]LIN Abdirahman MONTESMIZPAH Facility:[facility] Start: 09-02-2021 End: 09-02-2021 ambulatory [facility] Facility:[facility] Start: 09-02-2021 End: 09-02-2021 Subsequent hospital visit by physician Ct 2 Main Qb (I-Stat) Radiology Comment on above: SOB (shortness of br eath) [R06.02] Start: 09-02-2021 End: 09-03-2021 [facility] Comment on above: SOB (shortness of br eath) (Primary Dx) Start: 09-02-2021 End: 09-02-2021 Patient encounter procedure [facility] (Tra) Work Phone: [facility] Start: 09-02-2021 Chart abstracting Godfrey Martinez Hematology/Oncology Start: 09-02-2021 End: 09-02-2021 Subsequent hospital visit by physician Xr Main [facility]LD Work Phone: Radiology Comment on above: SOB (shortness of br eath) [R06.02] Start: 09-01-2021 Telephone encounter Adriana glynn MD Work Phone: Urology Comment on above: Results; Patient Upd ate; Laboratory Apparatus Glass Blower - Other Start: 08-27-2021 End: 08-27-2021 Orders Only Godfrey Mardomenico RUG CLEANER HAND.MINE PATROL Work Phone: Hematology/Oncology Comment on above: Malignant neoplasm o f right kidney, except renal pelvis (HCC) (Primary Dx) Start: 08-20-2021 Orders Only Godfrey Marol i [employer]UG CLE[employer].MINE PATROL Work Phone: Hematology/Oncology Comment on above: Malignant neoplasm o f right kidney, except renal pelvis (HCC) (Primary Dx); Malignant neoplasm of kidney excluding renal pelvis, unspecified laterality (HCC) Start: 08-19-2021 End: 08-19-2021 ambulatory [facility] Facility:[facility] Start: 08-19-2021 End: 08-19-2021 Nursing evaluation of patient and report Godfrey Clayton RN Hematology/Oncology Comment on above: Renal cell carcinoma , unspecified laterality (HCC) (Primary Dx) Start: 08-19-2021 End: 08-19-2021 Patient encounter procedure Godfrey Ohara RUG CLE[employer]ER HAND.MINE PATROL Work Phone: [facility] Start: 08-19-2021 End: 08-20-2021 ambulatory Godfrey Divineoli [employer]UG CLE[employer]MINE PATROL Work Phone: Hematology/Oncology Comment on above: Renal cell carcinoma , unspecified laterality (HCC) (Primary Dx); Hypertension, unspecified type Start: 08-19-2021 End: 08-19-2021 Patient encounter procedure Lalo Acevedo MD Work Phone: Cardiology Comment on above: Pedal edema (Primary Dx); Essential hypertension; Coronary artery disease involving kasaan coronary artery of kasaan heart without angina pectoris; Disturbance in sleep behavior Start: 08-18-2021 ambulatory Godfrey Marol i [employer] CLE[employer]MINE PATROL Work Phone: Hematology/Oncology Comment on above: Opened In Error Start: 08-18-2021 Telephone encounter Godfrey Clayton RN Hematology/Oncology Comment on above: Research ([facility] 1819) Start: 08-17-2021 End: 08-17-2021 Emergency department patient visit DAKSHA TURNER Facility:[facility] Start: 08-16-2021 ambulatory Lalo Acevedo MD Work Phone: Cardiology Comment on above: Elevated Blood Press ures Start: 08-13-2021 Telephone encounter Godfrey Clayton RN Hematology/Oncology Comment on above: Research ([facility] 1819) Start: 08-12-2021 Refill Godfrey Bhardwaj i [employer]UG CLE[employer]ER [employer]MINE PATROL Work Phone: Hematology/Oncology Comment on above: Refill Request Start: 08-12-2021 Telephone encounter Lalo mauricio MD Work Phone: Cardiology Comment on above: Blood Pressure Research ([facility] 1819) Start: 08-11-2021 Telephone encounter Hermila Ruiz RN Work Phone: Hematology/Oncology Comment on above: Research ([facility] 1819) Start: 08-08-2021 End: 08-08-2021 ambulatory Lab Port/[facility] 1 Work Phone: Hematology/Oncology Comment on above: Malignant neoplasm o f right kidney, except renal pelvis (HCC) Renal cell carcinoma , unspecified laterality (HCC) (Primary Dx) Other specified diso rders of kidney and ureter Start: 08-08-2021 End: 08-09-2021 ambulatory DAKSHA TURNER Facility:[facility] Start: 08-08-2021 End: 08-09-2021 ambulatory Chair 1 Breast Work Phone: Hematology/Oncology Comment on above: Renal cell carcinoma of right kidney (HCC) (Primary Dx) Start: 08-08-2021 End: 08-08-2021 Nursing evaluation of patient and report Godfrey Clayton RN Hematology/Oncology Comment on above: Renal cell carcinoma of right kidney (HCC) (Primary Dx) Start: 08-08-2021 End: 08-08-2021 Patient encounter procedure Godfrey Ohara APRN.MINE PATROL Work Phone: [facility] Start: 08-06-2021 End: 08-06-2021 ambulatory JANUSZSUKH TURNER Facility:[facility] Start: 08-06-2021 Chart abstracting Godfrey acuña APRN.MINE PATROL Work Phone: Hematology/Oncology Start: 08-06-2021 End: 08-07-2021 ambulatory KENNETH CHESTER Facility:[facility] Start: 08-06-2021 End: 08-06-2021 Subsequent hospital visit by physician Ct Prep Qb Radiology Comment on above: Malignant neoplasm o f kidney, unspecified laterality (HCC) [C64.9] Start: 08-06-2021 End: 08-06-2021 ambulatory Godfrey Ohara APRN.MINE PATROL Work Phone: Hematology/Oncology Comment on above: Renal cell carcinoma , unspecified laterality (HCC) (Primary Dx); Hypertension, unspecified type Start: 08-06-2021 End: 08-06-2021 Nursing evaluation of patient and report Godfrey Clayton RN Hematology/Oncology Comment on above: Renal cell carcinoma of right kidney (HCC) (Primary Dx) Start: 08-06-2021 End: 08-06-2021 Patient encounter procedure Godfrey Ohara APRN.MINE PATROL Work Phone: [facility] Start: 08-05-2021 End: 08-06-2021 ambulatory ATUL FUNG Facility:[facility] Start: 08-03-2021 Telephone encounter Atul Fung MD Work Phone: Cardiology Comment on above: Patient Education Start: 07-31-2021 End: 07-31-2021 ambulatory LALO ACEVEDO Facility:[facility] Start: 07-31-2021 End: 07-31-2021 ambulatory LALO ACEVEDO Facility:[facility] Start: 07-31-2021 End: 07-31-2021 Patient encounter procedure Lalo Acevedo MD Work Phone: Cardiology Comment on above: Nonrheumatic mitral valve regurgitation (Primary Dx) Start: 07-30-2021 Telephone encounter Tayler Moss RN Cardiology Comment on above: Patient Education (t ee) Start: 07-29-2021 Telephone encounter Godfrey Clayton RN Hematology/Oncology Comment on above: Research ([facility] 1819) Start: 07-28-2021 Orders Only Godfrey Bhardwaj i RUG CLE[employer]ER HAND.MINE PATROL Work Phone: Hematology/Oncology Comment on above: Malignant neoplasm o f right kidney, except renal pelvis (HCC) (Primary Dx); Malignant neoplasm of kidney excluding renal pelvis, unspecified laterality (HCC) Start: 07-25-2021 Chart abstracting Rahul ([facility] ) Sabrina Work Phone: Hematology/Oncology Start: 07-25-2021 Telephone encounter Godfrey Clayton RN Hematology/Oncology Comment on above: Research ([facility] 1819) Start: 07-24-2021 Telephone encounter Godfrey nixon APRN.MINE PATROL Work Phone: Hematology/Oncology Comment on above: Results Start: 07-24-2021 End: 07-24-2021 ambulatory [facility] Facility:[facility] Start: 07-24-2021 End: 07-25-2021 ambulatory Godfrey Ohara APRN.MINE PATROL Work Phone: Hematology/Oncology Comment on above: Malignant neoplasm o f kidney excluding renal pelvis, unspecified laterality (HCC) (Primary Dx); Metastatic renal cell carcinoma, unspecified laterality (HCC) Start: 07-24-2021 End: 07-24-2021 Nursing evaluation of patient and report Godfrey Clayton RN Hematology/Oncology Comment on above: Renal cell carcinoma of right kidney (HCC) (Primary Dx) Start: 07-24-2021 End: 07-24-2021 Patient encounter procedure Godfrey Ohara APRN.MINE PATROL Work Phone: [facility] Start: 07-23-2021 Telephone encounter Godfrey Clayton RN Hematology/Oncology Comment on above: Research ([facility] 1819) Start: 07-22-2021 End: 07-22-2021 ambulatory Lalo Acevedo MD Work Phone: Cardiology Comment on above: Nonrheumatic mitral valve regurgitation (Primary Dx); Cardiomyopathy, nonischemic (HCC) Start: 07-22-2021 End: 07-22-2021 Telemedicine consultation with patient Lalo Acevedo MD Work Phone: [facility] Start: 07-21-2021 Chart abstracting Godfrey acuña APRN.MINE PATROL Work Phone: Hematology/Oncology Start: 07-21-2021 Telephone encounter Financial Navigator Cullen Work Phone: Hematology/Oncology Comment on above: Benefits Investigati on Start: 07-21-2021 End: 07-21-2021 Nursing evaluation of patient and report Godfrey Clayton RN Hematology/Oncology Comment on above: Malignant neoplasm o f kidney excluding renal pelvis, unspecified laterality (HCC) (Primary Dx) Start: 07-21-2021 End: 07-21-2021 Subsequent hospital visit by physician Bonnie Luz Work Phone: Radiology Comment on above: Malignant neoplasm o f right kidney, except renal pelvis (HCC) [C64.1] Malignant neoplasm o f kidney excluding renal pelvis, unspecified laterality (HCC) [C64.9] Start: 07-21-2021 End: 07-22-2021 ambulatory Lab [facility] 1 Work Phone: Hematology/Oncology Comment on above: Malignant neoplasm o f right kidney, except renal pelvis (HCC) Start: 07-17-2021 End: 07-17-2021 Patient encounter procedure [facility] Start: 07-15-2021 End: 07-15-2021 ambulatory [facility] Facility:[facility] Start: 07-14-2021 End: 07-15-2021 Orders Only Godfrey Ohara APRN.MINE PATROL Work Phone: Hematology/Oncology Comment on above: Malignant neoplasm o f kidney excluding renal pelvis, unspecified laterality (HCC) (Primary Dx); Renal cell carcinoma, unspecified laterality (HCC) Malignant neoplasm o f right kidney, except renal pelvis (HCC) (Primary Dx) Anxiety (Primary Dx) Start: 07-11-2021 Telephone encounter Godfrey Clayton RN Hematology/Oncology Comment on above: Research ([facility] 1819) Malignant neoplasm o f right kidney, except renal pelvis (HCC) (Primary Dx); Malignant neoplasm of kidney excluding renal pelvis, unspecified laterality (HCC) Start: 07-08-2021 End: 07-08-2021 ambulatory KENNETH CHESTER Facility:[facility] Start: 07-08-2021 End: 07-08-2021 Nursing evaluation of patient and report Godfrey Clayton RN Hematology/Oncology Comment on above: Malignant neoplasm o f kidney excluding renal pelvis, unspecified laterality (HCC) (Primary Dx) Start: 07-07-2021 Telephone encounter Godfrey Clayton RN Hematology/Oncology Comment on above: Research ([facility] 1819) Start: 07-02-2021 End: 07-02-2021 ambulatory Kenneth Chester MD Work Phone: Hematology/Oncology Comment on above: Malignant neoplasm o f kidney, unspecified laterality (HCC); Malignant neoplasm of kidney excluding renal pelvis, unspecified laterality (HCC); Chest wall mass Start: 07-02-2021 End: 07-02-2021 Patient encounter procedure Kenneth Chester MD Work Phone: [facility] Start: 07-01-2021 End: 07-01-2021 ambulatory ANNE-MARIE CHAPARRO Facility:[facility] Start: 06-30-2021 End: 07-01-2021 ambulatory JOHN GTZ Facility:[facility] Start: 06-30-2021 End: 06-30-2021 Subsequent hospital visit by physician [facility] Comment on above: Malignant neoplasm o f kidney, unspecified laterality (HCC) [C64.9] Start: 06-30-2021 End: 06-30-2021 ambulatory ADRIANA HODGE Facility:[facility] Start: 06-30-2021 End: 06-30-2021 Subsequent hospital visit by physician [facility] Start: 06-27-2021 End: 06-27-2021 ambulatory ADRIANA HODGE Facility:[facility] Start: 06-27-2021 End: 06-27-2021 Subsequent hospital visit by physician Bonnie Jones Radiology Comment on above: Malignant neoplasm o f kidney, unspecified laterality (HCC) [C64.9] Start: 06-23-2021 End: 06-24-2021 ambulatory Adriana Hodge MD Work Phone: Urology Start: 06-23-2021 Telephone encounter Dawit luz MD Work Phone: Internal Medicine Comment on above: Results Biopsy Request Start: 06-23-2021 End: 06-23-2021 Patient encounter procedure Adriana Hodge MD Work Phone: Urology Comment on above: Malignant neoplasm o f kidney, unspecified laterality (HCC) (Primary Dx); Malignant neoplasm of kidney excluding renal pelvis, unspecified laterality (HCC) Start: 06-20-2021 End: 06-20-2021 ambulatory DAWIT URBINA MD Facility:[facility] Start: 06-19-2021 End: 06-19-2021 Emergency department patient visit Family Physician Unavailable Facility:[facility] Start: 06-19-2021 End: 06-19-2021 Emergency department patient visit Family [facility] Start: 06-30-2004 End: 11-26-2014 Patient encounter status E[facility] Work Phone: [facility] Procedures Date Procedure Procedure Detail Performing Clinician Start: 06-13-[address] Sejal Turner MD Work Phone: Start: 06-13-2024 CT of thorax, abdome n and pelvis with contrast Dr. Daksha Turner MD Work Phone: Start: 02-08-[address] Kimo Turner MD Work Phone: Start: 05-21-2023 Clostridium difficil e detection Dr. Jose Ramon Turner Work Phone: Start: 05-21-2023 Measurement of occul t blood in stool specimen using immunoassay Dr. Jose Ramon Turner Work Phone: Start: 05-21-[address] Jose Ramon Turner Work Phone: Start: 05-21-2023 Ova [place] parasites identification Dr. Jose Ramon Turner Work Phone: Start: 05-20-2023 [place]va [place] parasites identification Dr. Jose Ramon Turner Work Phone: Start: 04-26-2023 Plain chest X-ray Dr. Tangela Turner Work Phone: Start: 03-04-2023 CT of chest, abdomen and pelvis without contrast Dr. Jose Ramon Turner Work Phone: Start: 12-30-2022 Radiography of nasal sinuses Dr. Jose Ramon Turner Work Phone: Start: 12-15-2022 Legionella pneumophi la antigen assay Dr. Jose Ramon Turner Work Phone: Start: 12-15-2022 Streptococcus pneumo niae Antigen (M Dr. Jose Ramon Turner Work Phone: Start: 12-15-2022 Plain chest X-ray Dr. Tangela Turner Work Phone: Start: 09-01-2022 CT of chest, abdomen and pelvis without contrast Dr. Jose Ramon Turner Work Phone: Start: 06-28-2022 Respiratory Panel (PCR) Dr. Jose Ramon Turner Work Phone: Start: 06-27-2022 Plain chest X-ray Dr. Tangela Turner Work Phone: Start: 05-18-2022 Plain chest X-ray Dr. Tangela Turner Work Phone: Start: 05-18-2022 Respiratory Panel (PCR) Dr. Jose Ramon Turner Work Phone: Start: 04-16-2022 Cardiovascular stres s test using pharmacologic stress agent Dr. Jose Ramon Turner Work Phone: Start: 04-13-2022 Plain chest X-ray Start: 04-13-2022 Plain chest X-ray Start: 03-23-2022 Bone &/joint imaging whole body Haylee Wilburn MD Work Phone: Start: 02-26-2022 Echo transthorac r-t 2d w/wo m-mode rec comp Sayra Tello MD Work Phone: Start: 02-17-2022 Blood count complete auto&auto difrntl wbc Haylee Wilburn MD Work Phone: Start: 02-07-2022 End: 02-07-2022 Arterial Full Panel -Next Draw Liv Tello Start: 02-06-2022 End: 02-06-2022 Arterial Full Panel -Next Draw Nahomy Amor Start: 02-06-[address] JULIENNE HERNANDEZ Comment on above: Performed By: #### T +S #### [address] [address] Start: 01-29-2022 Plain chest X-ray Dr. Tangela Turner Work Phone: Start: 01-27-[address] JULIENNE HERNANDEZ Comment on above: Performed By: #### C BC #### [address] [id number] Start: 01-20-2022 Plain chest X-ray Dr. Tangela Turner Work Phone: Start: 01-19-2022 Ecg routine ecg w/le ast 12 lds trcg only w/o i&r [facility] Provider Start: 01-19-2022 Radiologic exam ches t 2 views Adriana Hodge MD Work Phone: Start: 12-07-2021 CT angiography of ch est with contrast Start: 12-07-2021 Plain chest X-ray Start: 11-20-2021 Ct abdomen & pelvis w/contrast material Adriana Hodge MD Work Phone: Start: 11-20-2021 Ct thorax w/contrast material Adriana Hodge MD Work Phone: Start: 10-27-2021 Antibody screen KENNETH MCDERMOTT Comment on above: Order Comment: Speci men Type: BLOOD SPECIMENOrdering Facility: [facility] Address: [address] [place] [address] Performed By: #### T [id number] ####[facility] [id number] [address] [place] Start: 10-20-2021 Adult depression scr eening assessment Haylee Wilburn MD Work Phone: Start: 09-23-2021 Lipid 1996 panel - S desirae or Plasma [facility] Work Phone: Start: 09-22-2021 End: 09-22-2021 Ecg routine ecg w/least 12 lds w/i&r [facility] Provider Start: 09-04-2021 Echocardiography KENNETH CHESTER Start: 09-02-2021 Ct thorax w/contrast material Daksha Melo PA-C Work Phone: Start: 09-02-2021 Radiologic exam ches t 2 views Daksha Melo PA-C Work Phone: Start: 08-08-2021 Thromboplastin time partial plasma/whole blood Kenneth Chester MD Work Phone: Start: 07-21-2021 Ct thorax w/contrast material Kenneth Chester MD Work Phone: Start: 07-21-2021 Mri brain brain stem w/o w/contrast material Kenneth Chester MD Work Phone: Start: 07-21-2021 Thromboplastin time partial plasma/whole blood Stephany Ceballos PA-C Work Phone: Start: 07-17-2021 Plain chest X-ray Start: 06-30-2021 Bone &/joint imaging whole body Adriana Hodge MD Work Phone: Start: 06-27-2021 Ct abdomen & pelvis w/contrast material Adriana Hodge MD Work Phone: Start: 06-23-2021 Urnls dip stick/tabl et rgnt auto w/o microscopy Bulk Order Provider Start: 06-19-2021 CT of chest Family Madiha vailable Start: 06-19-2021 CT of head without contrast Family Unavailable Start: 06-19-2021 Plain chest X-ray Famil y Unavailable Start: 11-20-2019 Colonoscopy Dawit luz MD Work Phone: Start: 03-16-2016 Adult depression scr eening assessment Dawit Urbina MD Work Phone: SARS-CoV-2 & FLU Ant igen (Rapid) SARS-CoV-2 & FLU Ant igen (Rapid) SARS-CoV-2 & FLU Ant igen (Rapid) Plan of Treatment Date Care Activity Detail Author Start: 07-25-2028 Urine microalbumin profile [facility] Start: 09-23-2026 Lipid panel Lipid Screening [facility] Start: 09-23-2026 LIPID SCREEN LIPID SCREEN [facility] Start: 04-09-2025 DIABETES SCREEN DIABETES SCREEN [facility] Start: 04-09-2025 Diabetes Screening Diabetes Screenin g [facility] Start: 02-17-2025 DIABETES SCREEN DIABETES SCREEN [facility] Start: 11-05-2024 LIPID SCREEN LIPID SCREEN [facility] Start: 11-05-2024 PROSTATE CANCER SCRE ENING DISCUSSION PROSTATE CANCER SCREENING DISCUSSION [facility] Start: 11-05-2024 Prostate specific an tigen measurement Prostate Cancer Screening Discussion [facility] Start: 10-27-2024 DIABETES SCREEN DIABETES SCREEN [facility] Start: 10-09-2024 DIABETES SCREEN DIABETES SCREEN [facility] Start: 09-26-2024 DIABETES SCREEN DIABETES SCREEN [facility] Start: 09-11-2024 DIABETES SCREEN DI[facility]ETES SCREEN [facility] Start: 09-03-2024 DIABETES SCREEN DIABETES SCREEN [facility] Start: 09-02-2024 DIABETES SCREEN DIABETES SCREEN [facility] Start: 08-19-2024 DIABETES SCREEN DIABETES SCREEN [facility] Start: 08-17-2024 DIABETES SCREEN DIABETES SCREEN [facility] Start: 08-14-2024 Evaluation of diagno stic study results [facility] Start: 08-08-2024 DIABETES SCREEN [facility]CREEN [facility] Start: 08-06-2024 DIABETES SCREEN DIABETES SCREEN [facility] Start: 07-24-2024 DIABETES SCREEN DIABETES SCREEN [facility] Start: 07-21-2024 DIABETES SCREEN DIABETES SCREEN [facility] Start: 06-20-2024 DIABETES SCREEN DIABETES SCREEN [facility] Start: 11-07-2023 Covid-19 Vaccine ( season) Covid-19 Vaccine () [facility] Start: 11-07-2023 Influenza vaccination Influenza Vacc ine (#1) [facility] Start: 02-16-2023 BP CONTROLLED (<130/80) BP CON TROLLED (<130/80) [facility] Start: 12-17-2022 Patient discharge [facility] Start: 12-16-2022 Admission procedure [facility] Start: 12-15-2022 End: 12-16-2022 [facility] Start: 12-15-2022 Continuous positive airway pressure ventilation treatment [facility] Start: 12-15-2022 Ambulation without limitation [facility] Start: 12-15-2022 Assessment of risk o f venous thromboembolism [facility] Start: 12-15-2022 Fluid restriction [facility] Start: 12-15-2022 Insertion of cathete r into peripheral vein [facility] Start: 12-15-2022 Measuring intake and output [facility] Start: 12-15-2022 Oxygen therapy [facility] Start: 12-15-2022 Providing care accor ding to standard [facility] Start: 12-15-2022 Referral to service [facility] Start: 12-15-2022 Admission procedure [facility] Start: 12-15-2022 Following clinical p athway protocol [facility] Start: 12-15-2022 Transfusion of blood product [facility] Start: 12-15-2022 Patient referral to dietitian [facility] Start: 10-20-2022 Adult depression scr eening assessment DEPRESSION SCREENING [facility] Start: 09-23-2022 BP CONTROLLED (<130/80) BP CON TROLLED (<130/80) [facility] Start: 09-23-2022 Hepatitis B surface antibody level LDL CHOLESTEROL [facility] Start: 07-06-2022 FUV, Provider: Aravind Hernandez, Status: Pen, Time: 1:40 PM FUV, Provider: Aravind Hernandez, Status: Pen, Time: 1:40 PM [id number] [facility] 400 DO Work Phone: Start: 06-29-2022 Patient discharge [facility] Start: 06-28-2022 Following clinical p athway protocol [facility] Start: 06-28-2022 Assessment of risk o f venous thromboembolism [facility] Start: 06-28-2022 Continuous positive airway pressure ventilation treatment [facility] Start: 06-28-2022 Inhalation therapy procedure [facility] Start: 06-28-2022 Insertion of cathete r into peripheral vein [facility] Start: 06-28-2022 Introduction of urin rebecca catheter [facility] Start: 06-28-2022 Measuring intake and output [facility] Start: 06-28-2022 Oxygen therapy [facility] Start: 06-28-2022 End: 06-28-2022 Patient referral to dietitian [facility] Start: 06-28-2022 Providing care accor ding to standard [facility] Start: 06-28-2022 Provision of activit y privileges [facility] Start: 06-28-2022 Referral to service [facility] Start: 06-28-2022 End: 06-28-2022 [facility] Start: 06-28-2022 Verification routine [facility] Start: 06-28-2022 Admission procedure [facility] Start: 06-27-2022 Troponin I measurement [facility] Start: 06-27-2022 [facility] Start: 06-20-2022 ANNUAL PCP TEAM WILDLIFE REFUGE SPECIALIST SEFERINO DISEASE VISIT ANNUAL PCP TEAM CHRONIC DISEASE VISIT [facility] Start: 05-27-2022 Patient referral [facility] Work Phone: Start: 05-20-2022 Patient discharge [facility] Start: 05-19-2022 Continuous positive airway pressure ventilation treatment [facility] Start: 05-18-2022 Dual pressure sponta neous ventilation support [facility] Start: 05-18-2022 Following clinical p athway protocol [facility] Start: 05-18-2022 Assessment of risk o f venous thromboembolism [facility] Start: 05-18-2022 Continuous pulse oximetry [facility] Start: 05-18-2022 Insertion of cathete r into peripheral vein [facility] Start: 05-18-2022 Measuring intake and output [facility] Start: 05-18-2022 Oxygen therapy [facility] Start: 05-18-2022 Providing care accor ding to standard [facility] Start: 05-18-2022 Provision of activit y privileges [facility] Start: 05-18-2022 [facility] Start: 05-18-2022 Verification routine [facility] Start: 05-18-2022 Admission procedure [facility] Start: 05-18-2022 [facility] Start: 05-18-2022 Patient referral to dietitian [facility] Start: 04-17-2022 Prothrombin time [facility] Start: 04-16-2022 Patient discharge [facility] Start: 04-16-2022 Prothrombin time [facility] Start: 04-16-2022 Oxygen therapy [facility] Start: 04-15-2022 [facility] Start: 04-15-2022 Prothrombin time [facility] Start: 04-14-2022 Continuous pulse oximetry [facility] Start: 04-14-2022 [facility] Start: 04-14-2022 Application of intermittent pneumatic compression device [facility] Start: 04-14-2022 Following clinical p athway protocol [facility] Start: 04-14-2022 Chemotherapy care management [facility] Start: 04-14-2022 Elevation of affecte d extremity [facility] Start: 04-14-2022 Fluid restriction [facility] Start: 04-14-2022 Notification of physician [facility] Start: 04-14-2022 Patient education [facility] Start: 04-14-2022 End: 04-14-2022 [facility] Start: 04-14-2022 Continuous positive airway pressure ventilation treatment [facility] Start: 04-13-2022 Admission procedure [facility] Start: 03-25-2022 End: 05-25-2022 CBC W Auto Differential panel - Blood CBC + DIFF Lab Routine Renal cell carcinoma of right kidney (HCC) Expected: 03/25/2022, Expires: 05/25/2022 [facility] Work Phone: Comment on above: Expected: 03/25/2022 , Expires: 05/25/2022 Start: 03-25-2022 End: 05-25-2022 Comprehensive metabolic 2000 panel - Serum or Plasma COMP METABOLIC PANEL Lab Routine Renal cell carcinoma of right kidney (HCC) Expected: 03/25/2022, Expires: 05/25/2022 [facility] Work Phone: Comment on above: Expected: 03/25/2022 , Expires: 05/25/2022 Start: 03-25-2022 End: 05-25-2022 Thyrotropin [Units/volume] in Serum or Plasma TSH BLD Lab Routine Renal cell carcinoma of right kidney (HCC) Expected: 03/25/2022, Expires: 05/25/2022 [facility] Work Phone: Comment on above: Expected: 03/25/2022 , Expires: 05/25/2022 Start: 03-08-2022 DEPRESSION ASSESSMENT DEPRESSION ASS [facility] Start: 02-16-2022 End: 04-18-2022 Basic metabolic 2000 panel - Serum or Plasma BASIC METABOLIC PNL Lab Routine Acute decompensated heart failure (HCC) Paroxysmal atrial fibrillation (HCC) Expected: 02/16/2022, Expires: 04/18/2022 [facility] Work Phone: Comment on above: Expected: 02/16/2022 , Expires: 04/18/2022 Start: 02-08-2022 End: 02-09-2023 Bisacodyl Rectal 10 mg Suppository Daily PRN ; Suppository (DULCOLAX)DOSE = 10 mg Rectal Daily, PRN Constipation Start: 08-Feb-2022 End: 08-Feb-2023 Ordered: 08-Feb-2022 Deep Tamez [facility] Start: 02-06-2022 End: 02-07-2023 [facility] Comment on above: Minimize narcotics May be used if patie nt continues to have severe pain after administration of other pain medications or if the patient cannot tolerate oral oxycodone. IF patient HAS a sec ure IV access & is Unconscious, Conscious, NPO or Unable to Eat or Drink. Repeat until BG reaches 100 mg/dL or greater. Push 2-3 mL/minute. Discontinue once BG reaches 100 mg/dL or greater. IF patient DOES NOT have secure IV access & is Unconscious, Conscious, NPO or Unable to Eat or Drink. Repeat until BG reaches 100 mg/dL or greater. Discontinue once BG reaches 100 mg/dL or greater. Start: 02-06-2022 [facility], Provider: Aravind Hernandez, Status: Pen, Time: 9:30 AM [facility], Provider: Aravind Hernandez, Status: Pen, Time: 9:30 AM [id number] DO Work Phone: Start: 01-29-2022 Chemotherapy care management [facility] Start: 01-20-2022 Plain chest X-ray Chest 1 View (Portable) [facility] Work Phone: Start: 01-20-2022 XR Chest Single view [facility] Work Phone: Start: 12-30-2021 End: 03-01-2022 aPTT in Platelet poor plasma by Coagulation assay ACTIVATED PTT Lab Routine Renal cell carcinoma of right kidney (HCC) Expected: 12/30/2021 (Approximate), Expires: 03/01/2022 [facility] Work Phone: Comment on above: Expected: 12/30/2021 (Approximate), Expires: 03/01/2022 Start: 12-30-2021 End: 03-01-2022 CBC panel - Blood by Automated count CBC Lab Routine Renal cell carcinoma of right kidney (HCC) Expected: 12/30/2021 (Approximate), Expires: 03/01/2022 [facility] Work Phone: Comment on above: Expected: 12/30/2021 (Approximate), Expires: 03/01/2022 Start: 12-30-2021 End: 03-01-2022 Comprehensive metabolic 2000 panel - Serum or Plasma COMP METABOLIC PANEL Lab Routine Renal cell carcinoma of right kidney (HCC) Expected: 12/30/2021 (Approximate), Expires: 03/01/2022 [facility] Work Phone: Comment on above: Expected: 12/30/2021 (Approximate), Expires: 03/01/2022 Start: 12-30-2021 End: 03-01-2022 CONFIRM BLOOD TYPE CONFIRM BLOOD TYPE Blood Bank Routine Renal cell carcinoma of right kidney (HCC) Expected: 12/30/2021 (Approximate), Expires: 03/01/2022 [facility] Work Phone: Comment on above: Expected: 12/30/2021 (Approximate), Expires: 03/01/2022 Start: 12-30-2021 End: 03-01-2022 PT panel - Platelet poor plasma by Coagulation assay PROTHROMBIN TIME/PT Lab Routine Renal cell carcinoma of right kidney (HCC) Expected: 12/30/2021 (Approximate), Expires: 03/01/2022 [facility] Work Phone: Comment on above: Expected: 12/30/2021 (Approximate), Expires: 03/01/2022 Start: 12-30-2021 End: 12-30-2022 SARS-CoV-2 (COVID-19) RNA [Presence] in Respiratory specimen by S[facility]AL with probe detection PRE-PROCEDURE & PRE-OPERATIVE COVID Microbiology Routine Renal cell carcinoma of right kidney (HCC) Expected: 12/30/2021, Expires: 12/30/2022 [facility] Work Phone: Comment on above: Expected: 12/30/2021 , Expires: 12/30/2022 Start: 12-30-2021 End: 03-01-2022 TYPE AND SCREEN,30 DAY TYPE AND SCREEN,30 DAY Blood Bank Routine Renal cell carcinoma of right kidney (HCC) Expected: 12/30/2021 (Approximate), Expires: 03/01/2022 [facility] Work Phone: Comment on above: Expected: 12/30/2021 (Approximate), Expires: 03/01/2022 Start: 12-09-2021 Patient discharge [facility] Work Phone: Start: 12-08-2021 Inhalation therapy procedure [facility] Work Phone: Start: 12-07-2021 Chemotherapy care management [facility] Work Phone: Start: 12-07-2021 Ambulation without limitation [facility] Work Phone: Start: 12-07-2021 Assessment of risk o f venous thromboembolism [facility] Work Phone: Start: 12-07-2021 Catheterization of vein [facility] Work Phone: Start: 12-07-2021 Insertion of cathete r into peripheral vein [facility] Work Phone: Start: 12-07-2021 Measuring intake and output [facility] Work Phone: Start: 12-07-2021 Providing care accor ding to standard [facility] Work Phone: Start: 12-07-2021 [facility] Work Phone: Start: 12-07-2021 Verification routine [facility] Work Phone: Start: 12-07-2021 Admission procedure [facility] Work Phone: Start: 12-07-2021 Following clinical p athway protocol [facility] Work Phone: Start: 12-07-2021 Troponin I measurement [facility] Work Phone: Start: 12-06-2021 Influenza vaccination Influenza Vacc ine (#1) [facility] Start: 11-06-2021 Influenza vaccination C [facility] Start: 10-16-2021 End: 10-17-2021 aPTT in Platelet poor plasma by Coagulation assay ACTIVATED PTT Lab STAT Malignant neoplasm of right kidney, except renal pelvis (HCC) Expected: 10/16/2021, Expires: 10/17/2021 [facility] Work Phone: Comment on above: Expected: 10/16/2021 , Expires: 10/17/2021 Start: 10-16-2021 End: 10-17-2021 CBC W Auto Differential panel - Blood CBC + DIFF Lab STAT Malignant neoplasm of right kidney, except renal pelvis (HCC) Expected: 10/16/2021, Expires: 10/17/2021 [facility] Work Phone: Comment on above: Expected: 10/16/2021 , Expires: 10/17/2021 Start: 10-16-2021 End: 10-17-2021 Comprehensive metabolic 2000 panel - Serum or Plasma COMP METABOLIC PANEL Lab STAT Malignant neoplasm of right kidney, except renal pelvis (HCC) Expected: 10/16/2021, Expires: 10/17/2021 [facility] Work Phone: Comment on above: Expected: 10/16/2021 , Expires: 10/17/2021 Start: 10-16-2021 End: 09-26-2022 Ct abdomen & pelvis w/contrast material CT ABD/PEL W IVCON Radiology Routine Malignant neoplasm of right kidney, except renal pelvis (HCC) Expected: 10/16/2021, Expires: 09/26/2022 [facility] Work Phone: Comment on above: Expected: 10/16/2021 , Expires: 09/26/2022 Start: 10-16-2021 End: 09-26-2022 Ct thorax w/contrast material CT CHEST W IVCON Radiology Routine Malignant neoplasm of right kidney, except renal pelvis (HCC) Expected: 10/16/2021, Expires: 09/26/2022 [facility] Work Phone: Comment on above: Expected: 10/16/2021 , Expires: 09/26/2022 Start: 10-16-2021 End: 10-17-2021 Lactate dehydrogenase [Enzymatic activity/volume] in Serum or Plasma LD LACTATE DEHYDRO Lab STAT Malignant neoplasm of right kidney, except renal pelvis (HCC) Expected: 10/16/2021, Expires: 10/17/2021 [facility] Work Phone: Comment on above: Expected: 10/16/2021 , Expires: 10/17/2021 Start: 10-16-2021 End: 10-17-2021 Magnesium [Mass/volume] in Serum or Plasma MAGNESIUM BLD Lab STAT Malignant neoplasm of right kidney, except renal pelvis (HCC) Expected: 10/16/2021, Expires: 10/17/2021 [facility] Work Phone: Comment on above: Expected: 10/16/2021 , Expires: 10/17/2021 Start: 10-16-2021 End: 10-17-2021 Phosphate [Mass/volume] in Serum or Plasma PHOSPHORUS INORGANIC Lab STAT Malignant neoplasm of right kidney, except renal pelvis (HCC) Expected: 10/16/2021, Expires: 10/17/2021 [facility] Work Phone: Comment on above: Expected: 10/16/2021 , Expires: 10/17/2021 Start: 10-16-2021 End: 10-17-2021 PT panel - Platelet poor plasma by Coagulation assay PROTHROMBIN TIME/PT Lab STAT Malignant neoplasm of right kidney, except renal pelvis (HCC) Expected: 10/16/2021, Expires: 10/17/2021 [facility] Work Phone: Comment on above: Expected: 10/16/2021 , Expires: 10/17/2021 Start: 10-16-2021 End: 10-17-2021 Urate [Mass/volume] in Serum or Plasma URIC ACID BLOOD Lab STAT Malignant neoplasm of right kidney, except renal pelvis (HCC) Expected: 10/16/2021, Expires: 10/17/2021 [facility] Work Phone: Comment on above: Expected: 10/16/2021 , Expires: 10/17/2021 Start: 10-02-2021 End: 10-03-2021 aPTT in Platelet poor plasma by Coagulation assay ACTIVATED PTT Lab STAT Malignant neoplasm of right kidney, except renal pelvis (HCC) Expected: 10/02/2021, Expires: 10/03/2021 [facility] Work Phone: Comment on above: Expected: 10/02/2021 , Expires: 10/03/2021 Start: 10-02-2021 End: 10-03-2021 CBC W Auto Differential panel - Blood CBC + DIFF Lab STAT Malignant neoplasm of right kidney, except renal pelvis (HCC) Expected: 10/02/2021, Expires: 10/03/2021 [facility] Work Phone: Comment on above: Expected: 10/02/2021 , Expires: 10/03/2021 Start: 10-02-2021 End: 10-03-2021 CLINICAL TRIAL DRAW CLINICAL TRIAL DRAW Lab STAT Malignant neoplasm of right kidney, except renal pelvis (HCC) Expected: 10/02/2021, Expires: 10/03/2021 [facility] Work Phone: Comment on above: Expected: 10/02/2021 , Expires: 10/03/2021 Start: 10-02-2021 End: 10-03-2021 Comprehensive metabolic 2000 panel - Serum or Plasma COMP METABOLIC PANEL Lab STAT Malignant neoplasm of right kidney, except renal pelvis (HCC) Expected: 10/02/2021, Expires: 10/03/2021 [facility] Work Phone: Comment on above: Expected: 10/02/2021 , Expires: 10/03/2021 Start: 10-02-2021 End: 10-03-2021 Lactate dehydrogenase [Enzymatic activity/volume] in Serum or Plasma LD LACTATE DEHYDRO Lab STAT Malignant neoplasm of right kidney, except renal pelvis (HCC) Expected: 10/02/2021, Expires: 10/03/2021 [facility] Work Phone: Comment on above: Expected: 10/02/2021 , Expires: 10/03/2021 Start: 10-02-2021 End: 10-03-2021 Magnesium [Mass/volume] in Serum or Plasma MAGNESIUM BLD Lab STAT Malignant neoplasm of right kidney, except renal pelvis (HCC) Expected: 10/02/2021, Expires: 10/03/2021 [facility] Work Phone: Comment on above: Expected: 10/02/2021 , Expires: 10/03/2021 Start: 10-02-2021 End: 10-03-2021 Phosphate [Mass/volume] in Serum or Plasma PHOSPHORUS INORGANIC Lab STAT Malignant neoplasm of right kidney, except renal pelvis (HCC) Expected: 10/02/2021, Expires: 10/03/2021 [facility] Work Phone: Comment on above: Expected: 10/02/2021 , Expires: 10/03/2021 Start: 10-02-2021 End: 10-03-2021 PT panel - Platelet poor plasma by Coagulation assay PROTHROMBIN TIME/PT Lab STAT Malignant neoplasm of right kidney, except renal pelvis (HCC) Expected: 10/02/2021, Expires: 10/03/2021 [facility] Work Phone: Comment on above: Expected: 10/02/2021 , Expires: 10/03/2021 Start: 10-02-2021 End: 10-03-2021 Thyrotropin [Units/volume] in Serum or Plasma TSH BLD Lab STAT Malignant neoplasm of right kidney, except renal pelvis (HCC) Expected: 10/02/2021, Expires: 10/03/2021 [facility] Work Phone: Comment on above: Expected: 10/02/2021 , Expires: 10/03/2021 Start: 10-02-2021 End: 10-03-2021 Thyroxine (T4) free [Mass/volume] in Serum or Plasma T4 FREE/FREE THYROX Lab STAT Malignant neoplasm of right kidney, except renal pelvis (HCC) Expected: 10/02/2021, Expires: 10/03/2021 [facility] Work Phone: Comment on above: Expected: 10/02/2021 , Expires: 10/03/2021 Start: 10-02-2021 End: 10-03-2021 Triiodothyronine (T3) Free [Mass/volume] in Serum or Plasma T3 FREE BLD Lab STAT Malignant neoplasm of right kidney, except renal pelvis (HCC) Expected: 10/02/2021, Expires: 10/03/2021 [facility] Work Phone: Comment on above: Expected: 10/02/2021 , Expires: 10/03/2021 Start: 10-02-2021 End: 10-03-2021 Urate [Mass/volume] in Serum or Plasma URIC ACID BLOOD Lab STAT Malignant neoplasm of right kidney, except renal pelvis (HCC) Expected: 10/02/2021, Expires: 10/03/2021 [facility] Work Phone: Comment on above: Expected: 10/02/2021 , Expires: 10/03/2021 Start: 08-19-2021 End: 08-20-2021 aPTT in Platelet poor plasma by Coagulation assay ACTIVATED PTT Lab STAT Malignant neoplasm of right kidney, except renal pelvis (HCC) Expected: 08/19/2021, Expires: 08/20/2021 [facility] Work Phone: Comment on above: Expected: 08/19/2021 , Expires: 08/20/2021 Start: 08-19-2021 End: 08-20-2021 CBC W Auto Differential panel - Blood CBC + DIFF Lab STAT Malignant neoplasm of right kidney, except renal pelvis (HCC) Expected: 08/19/2021, Expires: 08/20/2021 [facility] Work Phone: Comment on above: Expected: 08/19/2021 , Expires: 08/20/2021 Start: 08-19-2021 End: 08-20-2021 Comprehensive metabolic 2000 panel - Serum or Plasma COMP METABOLIC PANEL Lab STAT Malignant neoplasm of right kidney, except renal pelvis (HCC) Expected: 08/19/2021, Expires: 08/20/2021 [facility] Work Phone: Comment on above: Expected: 08/19/2021 , Expires: 08/20/2021 Start: 08-19-2021 End: 08-20-2021 Lactate dehydrogenase [Enzymatic activity/volume] in Serum or Plasma LD LACTATE DEHYDRO Lab STAT Malignant neoplasm of right kidney, except renal pelvis (HCC) Expected: 08/19/2021, Expires: 08/20/2021 [facility] Work Phone: Comment on above: Expected: 08/19/2021 , Expires: 08/20/2021 Start: 08-19-2021 End: 08-20-2021 Magnesium [Mass/volume] in Serum or Plasma MAGNESIUM BLD Lab STAT Malignant neoplasm of right kidney, except renal pelvis (HCC) Expected: 08/19/2021, Expires: 08/20/2021 [facility] Work Phone: Comment on above: Expected: 08/19/2021 , Expires: 08/20/2021 Start: 08-19-2021 End: 08-20-2021 Phosphate [Mass/volume] in Serum or Plasma PHOSPHORUS INORGANIC Lab STAT Malignant neoplasm of right kidney, except renal pelvis (HCC) Expected: 08/19/2021, Expires: 08/20/2021 [facility] Work Phone: Comment on above: Expected: 08/19/2021 , Expires: 08/20/2021 Start: 08-19-2021 End: 08-20-2021 PT panel - Platelet poor plasma by Coagulation assay PROTHROMBIN TIME/PT Lab STAT Malignant neoplasm of right kidney, except renal pelvis (HCC) Expected: 08/19/2021, Expires: 08/20/2021 [facility] Work Phone: Comment on above: Expected: 08/19/2021 , Expires: 08/20/2021 Start: 08-19-2021 End: 08-20-2021 Urate [Mass/volume] in Serum or Plasma URIC ACID BLOOD Lab STAT Malignant neoplasm of right kidney, except renal pelvis (HCC) Expected: 08/19/2021, Expires: 08/20/2021 [facility] Work Phone: Comment on above: Expected: 08/19/2021 , Expires: 08/20/2021 Start: 08-07-2021 End: 08-08-2021 aPTT in Platelet poor plasma by Coagulation assay ACTIVATED PTT Lab STAT Malignant neoplasm of right kidney, except renal pelvis (HCC) Expected: 08/07/2021, Expires: 08/08/2021 [facility] Work Phone: Comment on above: Expected: 08/07/2021 , Expires: 08/08/2021 Start: 08-07-2021 End: 08-08-2021 CBC W Auto Differential panel - Blood CBC + DIFF Lab STAT Malignant neoplasm of right kidney, except renal pelvis (HCC) Expected: 08/07/2021, Expires: 08/08/2021 [facility] Work Phone: Comment on above: Expected: 08/07/2021 , Expires: 08/08/2021 Start: 08-07-2021 End: 08-08-2021 CLINICAL TRIAL DRAW CLINICAL TRIAL DRAW Lab STAT Malignant neoplasm of right kidney, except renal pelvis (HCC) Expected: 08/07/2021, Expires: 08/08/2021 [facility] Work Phone: Comment on above: Expected: 08/07/2021 , Expires: 08/08/2021 Start: 08-07-2021 End: 08-08-2021 Comprehensive metabolic 2000 panel - Serum or Plasma COMP METABOLIC PANEL Lab STAT Malignant neoplasm of right kidney, except renal pelvis (HCC) Expected: 08/07/2021, Expires: 08/08/2021 [facility] Work Phone: Comment on above: Expected: 08/07/2021 , Expires: 08/08/2021 Start: 08-07-2021 End: 08-08-2021 Lactate dehydrogenase [Enzymatic activity/volume] in Serum or Plasma LD LACTATE DEHYDRO Lab STAT Malignant neoplasm of right kidney, except renal pelvis (HCC) Expected: 08/07/2021, Expires: 08/08/2021 [facility] Work Phone: Comment on above: Expected: 08/07/2021 , Expires: 08/08/2021 Start: 08-07-2021 End: 08-08-2021 Magnesium [Mass/volume] in Serum or Plasma MAGNESIUM BLD Lab STAT Malignant neoplasm of right kidney, except renal pelvis (HCC) Expected: 08/07/2021, Expires: 08/08/2021 [facility] Work Phone: Comment on above: Expected: 08/07/2021 , Expires: 08/08/2021 Start: 08-07-2021 End: 08-08-2021 Phosphate [Mass/volume] in Serum or Plasma PHOSPHORUS INORGANIC Lab STAT Malignant neoplasm of right kidney, except renal pelvis (HCC) Expected: 08/07/2021, Expires: 08/08/2021 [facility] Work Phone: Comment on above: Expected: 08/07/2021 , Expires: 08/08/2021 Start: 08-07-2021 End: 08-08-2021 PT panel - Platelet poor plasma by Coagulation assay PROTHROMBIN TIME/PT Lab STAT Malignant neoplasm of right kidney, except renal pelvis (HCC) Expected: 08/07/2021, Expires: 08/08/2021 [facility] Work Phone: Comment on above: Expected: 08/07/2021 , Expires: 08/08/2021 Start: 08-07-2021 End: 08-08-2021 Urate [Mass/volume] in Serum or Plasma URIC ACID BLOOD Lab STAT Malignant neoplasm of right kidney, except renal pelvis (HCC) Expected: 08/07/2021, Expires: 08/08/2021 [facility] Work Phone: Comment on above: Expected: 08/07/2021 , Expires: 08/08/2021 Start: 08-05-2021 End: 08-06-2021 aPTT in Platelet poor plasma by Coagulation assay ACTIVATED PTT Lab STAT Malignant neoplasm of right kidney, except renal pelvis (HCC) Expected: 08/05/2021, Expires: 08/06/2021 [facility] Work Phone: Comment on above: Expected: 08/05/2021 , Expires: 08/06/2021 Start: 08-05-2021 End: 08-06-2021 CBC W Auto Differential panel - Blood CBC + DIFF Lab STAT Malignant neoplasm of right kidney, except renal pelvis (HCC) Expected: 08/05/2021, Expires: 08/06/2021 [facility] Work Phone: Comment on above: Expected: 08/05/2021 , Expires: 08/06/2021 Start: 08-05-2021 End: 08-06-2021 Comprehensive metabolic 2000 panel - Serum or Plasma COMP METABOLIC PANEL Lab STAT Malignant neoplasm of right kidney, except renal pelvis (HCC) Expected: 08/05/2021, Expires: 08/06/2021 [facility] Work Phone: Comment on above: Expected: 08/05/2021 , Expires: 08/06/2021 Start: 08-05-2021 End: 08-06-2021 Lactate dehydrogenase [Enzymatic activity/volume] in Serum or Plasma LD LACTATE DEHYDRO Lab STAT Malignant neoplasm of right kidney, except renal pelvis (HCC) Expected: 08/05/2021, Expires: 08/06/2021 [facility] Work Phone: Comment on above: Expected: 08/05/2021 , Expires: 08/06/2021 Start: 08-05-2021 End: 08-06-2021 Magnesium [Mass/volume] in Serum or Plasma MAGNESIUM BLD Lab STAT Malignant neoplasm of right kidney, except renal pelvis (HCC) Expected: 08/05/2021, Expires: 08/06/2021 [facility] Work Phone: Comment on above: Expected: 08/05/2021 , Expires: 08/06/2021 Start: 08-05-2021 End: 08-06-2021 Phosphate [Mass/volume] in Serum or Plasma PHOSPHORUS INORGANIC Lab STAT Malignant neoplasm of right kidney, except renal pelvis (HCC) Expected: 08/05/2021, Expires: 08/06/2021 [facility] Work Phone: Comment on above: Expected: 08/05/2021 , Expires: 08/06/2021 Start: 08-05-2021 End: 08-06-2021 PT panel - Platelet poor plasma by Coagulation assay PROTHROMBIN TIME/PT Lab STAT Malignant neoplasm of right kidney, except renal pelvis (HCC) Expected: 08/05/2021, Expires: 08/06/2021 [facility] Work Phone: Comment on above: Expected: 08/05/2021 , Expires: 08/06/2021 Start: 08-05-2021 End: 08-06-2021 T3 FREE BLD T3 FREE BLD Lab STAT Malignant neoplasm of right kidney, except renal pelvis (HCC) Expected: 08/05/2021, Expires: 08/06/2021 [facility] Work Phone: Comment on above: Expected: 08/05/2021 , Expires: 08/06/2021 Start: 08-05-2021 End: 08-06-2021 T4 FREE/FREE THYROX T4 FREE/FREE THYROX Lab STAT Malignant neoplasm of right kidney, except renal pelvis (HCC) Expected: 08/05/2021, Expires: 08/06/2021 [facility] Work Phone: Comment on above: Expected: 08/05/2021 , Expires: 08/06/2021 Start: 08-05-2021 End: 08-06-2021 Thyrotropin [Units/volume] in Serum or Plasma TSH BLD Lab STAT Malignant neoplasm of right kidney, except renal pelvis (HCC) Expected: 08/05/2021, Expires: 08/06/2021 [facility] Work Phone: Comment on above: Expected: 08/05/2021 , Expires: 08/06/2021 Start: 08-05-2021 End: 08-06-2021 Urate [Mass/volume] in Serum or Plasma URIC ACID BLOOD Lab STAT Malignant neoplasm of right kidney, except renal pelvis (HCC) Expected: 08/05/2021, Expires: 08/06/2021 [facility] Work Phone: Comment on above: Expected: 08/05/2021 , Expires: 08/06/2021 Start: 07-31-2021 End: 09-30-2021 CBC W Auto Differential panel - Blood CBC + DIFF Lab Routine Renal cell carcinoma, unspecified laterality (HCC) Expected: 07/31/2021, Expires: 09/30/2021 [facility] Work Phone: Comment on above: Expected: 07/31/2021 , Expires: 09/30/2021 Start: 07-31-2021 End: 09-30-2021 Comprehensive metabolic 2000 panel - Serum or Plasma COMP METABOLIC PANEL Lab Routine Renal cell carcinoma, unspecified laterality (HCC) Expected: 07/31/2021, Expires: 09/30/2021 [facility] Work Phone: Comment on above: Expected: 07/31/2021 , Expires: 09/30/2021 Start: 07-24-2021 End: 07-25-2021 aPTT in Platelet poor plasma by Coagulation assay ACTIVATED PTT Lab STAT Malignant neoplasm of right kidney, except renal pelvis (HCC) Expected: 07/24/2021, Expires: 07/25/2021 [facility] Work Phone: Comment on above: Expected: 07/24/2021 , Expires: 07/25/2021 Start: 07-24-2021 End: 07-25-2021 CBC W Auto Differential panel - Blood CBC + DIFF Lab STAT Malignant neoplasm of right kidney, except renal pelvis (HCC) Expected: 07/24/2021, Expires: 07/25/2021 [facility] Work Phone: Comment on above: Expected: 07/24/2021 , Expires: 07/25/2021 Start: 07-24-2021 End: 07-25-2021 CLINICAL TRIAL DRAW CLINICAL TRIAL DRAW Lab STAT Malignant neoplasm of right kidney, except renal pelvis (HCC) Expected: 07/24/2021, Expires: 07/25/2021 [facility] Work Phone: Comment on above: Expected: 07/24/2021 , Expires: 07/25/2021 Start: 07-24-2021 End: 07-25-2021 Comprehensive metabolic 2000 panel - Serum or Plasma COMP METABOLIC PANEL Lab STAT Malignant neoplasm of right kidney, except renal pelvis (HCC) Expected: 07/24/2021, Expires: 07/25/2021 [facility] Work Phone: Comment on above: Expected: 07/24/2021 , Expires: 07/25/2021 Start: 07-24-2021 End: 07-25-2021 Lactate dehydrogenase [Enzymatic activity/volume] in Serum or Plasma LD LACTATE DEHYDRO Lab STAT Malignant neoplasm of right kidney, except renal pelvis (HCC) Expected: 07/24/2021, Expires: 07/25/2021 [facility] Work Phone: Comment on above: Expected: 07/24/2021 , Expires: 07/25/2021 Start: 07-24-2021 End: 07-25-2021 Magnesium [Mass/volume] in Serum or Plasma MAGNESIUM BLD Lab STAT Malignant neoplasm of right kidney, except renal pelvis (HCC) Expected: 07/24/2021, Expires: 07/25/2021 [facility] Work Phone: Comment on above: Expected: 07/24/2021 , Expires: 07/25/2021 Start: 07-24-2021 End: 07-25-2021 Phosphate [Mass/volume] in Serum or Plasma PHOSPHORUS INORGANIC Lab STAT Malignant neoplasm of right kidney, except renal pelvis (HCC) Expected: 07/24/2021, Expires: 07/25/2021 [facility] Work Phone: Comment on above: Expected: 07/24/2021 , Expires: 07/25/2021 Start: 07-24-2021 End: 07-25-2021 PT panel - Platelet poor plasma by Coagulation assay PROTHROMBIN TIME/PT Lab STAT Malignant neoplasm of right kidney, except renal pelvis (HCC) Expected: 07/24/2021, Expires: 07/25/2021 [facility] Work Phone: Comment on above: Expected: 07/24/2021 , Expires: 07/25/2021 Start: 07-24-2021 End: 07-25-2021 Urate [Mass/volume] in Serum or Plasma URIC ACID BLOOD Lab STAT Malignant neoplasm of right kidney, except renal pelvis (HCC) Expected: 07/24/2021, Expires: 07/25/2021 [facility] Work Phone: Comment on above: Expected: 07/24/2021 , Expires: 07/25/2021 Start: 07-15-2021 End: 07-16-2021 aPTT in Platelet poor plasma by Coagulation assay ACTIVATED PTT Lab STAT Malignant neoplasm of right kidney, except renal pelvis (HCC) Expected: 07/15/2021, Expires: 07/16/2021 [facility] Work Phone: Comment on above: Expected: 07/15/2021 , Expires: 07/16/2021 Start: 07-15-2021 End: 07-16-2021 CBC W Auto Differential panel - Blood CBC + DIFF Lab STAT Malignant neoplasm of right kidney, except renal pelvis (HCC) Expected: 07/15/2021, Expires: 07/16/2021 [facility] Work Phone: Comment on above: Expected: 07/15/2021 , Expires: 07/16/2021 Start: 07-15-2021 End: 07-16-2021 Comprehensive metabolic 2000 panel - Serum or Plasma COMP METABOLIC PANEL Lab STAT Malignant neoplasm of right kidney, except renal pelvis (HCC) Expected: 07/15/2021, Expires: 07/16/2021 [facility] Work Phone: Comment on above: Expected: 07/15/2021 , Expires: 07/16/2021 Start: 07-15-2021 End: 07-16-2021 Lactate dehydrogenase [Enzymatic activity/volume] in Serum or Plasma LD LACTATE DEHYDRO Lab STAT Malignant neoplasm of right kidney, except renal pelvis (HCC) Expected: 07/15/2021, Expires: 07/16/2021 [facility] Work Phone: Comment on above: Expected: 07/15/2021 , Expires: 07/16/2021 Start: 07-15-2021 End: 07-16-2021 Magnesium [Mass/volume] in Serum or Plasma MAGNESIUM BLD Lab STAT Malignant neoplasm of right kidney, except renal pelvis (HCC) Expected: 07/15/2021, Expires: 07/16/2021 [facility] Work Phone: Comment on above: Expected: 07/15/2021 , Expires: 07/16/2021 Start: 07-15-2021 End: 07-16-2021 Phosphate [Mass/volume] in Serum or Plasma PHOSPHORUS INORGANIC Lab STAT Malignant neoplasm of right kidney, except renal pelvis (HCC) Expected: 07/15/2021, Expires: 07/16/2021 [facility] Work Phone: Comment on above: Expected: 07/15/2021 , Expires: 07/16/2021 Start: 07-15-2021 End: 07-16-2021 PT panel - Platelet poor plasma by Coagulation assay PROTHROMBIN TIME/PT Lab STAT Malignant neoplasm of right kidney, except renal pelvis (HCC) Expected: 07/15/2021, Expires: 07/16/2021 [facility] Work Phone: Comment on above: Expected: 07/15/2021 , Expires: 07/16/2021 Start: 07-15-2021 End: 07-16-2021 T3 FREE BLD T3 FREE BLD Lab STAT Malignant neoplasm of right kidney, except renal pelvis (HCC) Expected: 07/15/2021, Expires: 07/16/2021 [facility] Work Phone: Comment on above: Expected: 07/15/2021 , Expires: 07/16/2021 Start: 07-15-2021 End: 07-16-2021 T4 FREE/FREE THYROX T4 FREE/FREE THYROX Lab STAT Malignant neoplasm of right kidney, except renal pelvis (HCC) Expected: 07/15/2021, Expires: 07/16/2021 [facility] Work Phone: Comment on above: Expected: 07/15/2021 , Expires: 07/16/2021 Start: 07-15-2021 End: 07-16-2021 Thyrotropin [Units/volume] in Serum or Plasma TSH BLD Lab STAT Malignant neoplasm of right kidney, except renal pelvis (HCC) Expected: 07/15/2021, Expires: 07/16/2021 [facility] Work Phone: Comment on above: Expected: 07/15/2021 , Expires: 07/16/2021 Start: 07-15-2021 End: 07-16-2021 Urate [Mass/volume] in Serum or Plasma URIC ACID BLOOD Lab STAT Malignant neoplasm of right kidney, except renal pelvis (HCC) Expected: 07/15/2021, Expires: 07/16/2021 [facility] Work Phone: Comment on above: Expected: 07/15/2021 , Expires: 07/16/2021 Start: 06-24-2021 End: 08-24-2021 PT panel - Platelet poor plasma by Coagulation assay PROTHROMBIN TIME/PT Lab STAT Mass of right chest wall Expected: 06/24/2021, Expires: 08/24/2021 [facility] Work Phone: Comment on above: Expected: 06/24/2021 , Expires: 08/24/2021 Start: 06-23-2021 End: 07-23-2022 Bone &/joint imaging whole body NM BONE WHOLE BODY Radiology Routine Malignant neoplasm of kidney, unspecified laterality (HCC) Malignant neoplasm of kidney excluding renal pelvis, unspecified laterality (HCC) Expected: 06/23/2021 (Approximate), Expires: 07/23/2022 [facility] Work Phone: Comment on above: Expected: 06/23/2021 (Approximate), Expires: 07/23/2022 Start: 06-23-2021 End: 07-23-2022 Ct abdomen & pelvis w/contrast material CT ABD/PEL W IVCON Radiology Routine Malignant neoplasm of kidney, unspecified laterality (HCC) Malignant neoplasm of kidney excluding renal pelvis, unspecified laterality (HCC) Expected: 06/23/2021 (Approximate), Expires: 07/23/2022 [facility] Work Phone: Comment on above: Expected: 06/23/2021 (Approximate), Expires: 07/23/2022 Start: 06-23-2021 End: 07-23-2022 Ct abdomen & pelvis w/o contrast material CT ABD/PEL WO IVCON Radiology Routine Malignant neoplasm of kidney, unspecified laterality (HCC) Malignant neoplasm of kidney excluding renal pelvis, unspecified laterality (HCC) Expected: 06/23/2021, Expires: 07/23/2022 [facility] Work Phone: Comment on above: Expected: 06/23/2021 , Expires: 07/23/2022 Start: 05-21-2021 COVID-19 VACCINE (4 - Booster for Pfizer series) COVID-19 VACCINE (4 - Booster for Pfizer series) [facility] Start: 04-23-2021 COVID-19 VACCINE (4 - Booster for Pfizer series) COVID-19 VACCINE (4 - Booster for Pfizer series) [facility] Start: 04-15-2021 COVID-19 VACCINE (4 - Booster for Pfizer series) COVID-19 VACCINE (4 - Booster for Pfizer series) [facility] Start: 03-18-2021 COVID-19 VACCINE (4 - Booster for Pfizer series) COVID-19 VACCINE (4 - Booster for Pfizer series) [facility] Start: 03-08-2021 DEPRESSION ASSESSMENT DEPRESSION ASS ESSMENT [facility] Start: 11-19-2020 Colonoscopy COLONOSCOPY [facility] Start: 11-19-2020 COLORECTAL CANCER SCREENING COLORECTAL CANCER SCREENING [facility] Start: 11-19-2020 Screening for malign ant neoplasm of colon [facility] Start: 11-05-2020 Hepatitis B surface antibody level LDL CHOLESTEROL [facility] Start: 07-28-2019 FECAL OCCULT BLOOD FECAL OCCULT BLOO D [facility] Start: 07-28-2019 Screening for malign ant neoplasm of colon Fecal Occult Blood [facility] Start: 03-16-2017 Adult depression scr eening assessment DEPRESSION SCREENING [facility] Start: 01-01-2014 Measurement of occul t blood in single stool specimen FIT [facility] Start: 01-01-2014 Screening for malign ant neoplasm of colon [facility] Start: 01-01-2014 Shingles (RZV) Vacci ne (1 of 2) Shingles (RZV) Vaccine (1 of 2) [facility] Start: 01-01-2014 SHINGRIX VACCINE (1 of 2) ROSS GRIX VACCINE (1 of 2) [facility] Start: 01-01-2009 COLOGUARD (FIT-DNA) COLOGUARD (FIT-D NA) [facility] Start: 01-01-[address] COLONOGRAPHY [facility] Start: 01-01-2009 Screening for malign ant neoplasm of colon [facility] Start: 01-01-2009 SIGMOIDOSCOPY SIGMOIDOSCOPY [facility] Start: 01-01-1999 Lipid [facility] Start: 01-01-1983 ONE PNEUMOVAX PRIOR TO AGE 65 ONE PNEUMOVAX PRIOR TO AGE 64 [facility] Start: 01-01-1983 SHINGRIX VACCINE (1 of 2) ROSS GRIX VACCINE (1 of 2) [facility] Start: 01-01-1982 Anxiety Screening Anxiety Screening [facility] Start: 01-01-1982 BP CONTROLLED (<130/80) BP CON TROLLED (<130/80) [facility] Start: 01-01-1982 Depression Screening Depression Scre ening [facility] Start: 01-01-1982 Hepatitis C screening Hepatitis C An tibody [facility] Start: 01-01-1982 Tetanus + diphtheria + acellular pertussis vaccine (product) Tdap Booster [facility] Start: 01-01-1979 HIV screening HIV Test [facility] Start: 01-01-1970 PNEUMOCOCCAL (1 - PCV) PNEUMOCOCCAL (1 - PCV) [facility] Start: 1965 COVID-19 Vaccine (#1) COVID-19 Vacci ne (#1) [facility] Start: 1965 HEPATITIS B (1 of 3 - 3-dose series) HEPATITIS B (1 of 3 - 3-dose series) [facility] Start: 1965 Screening for malign ant neoplasm of colon Colonoscopy [facility] Basic metabolic 2008 panel with ionized calcium - Serum or Plasma [facility] Biopsy bone trocar/n eedle superficial IMAGING GUIDED BIOPSY RIB/BONY PELVIS/STERNUM/SPINOUS PROCESS Radiology Routine Malignant neoplasm of kidney, unspecified laterality (HCC) Malignant neoplasm of kidney excluding renal pelvis, unspecified laterality (HCC) Ordered: 06/23/2021 [facility] Work Phone: Comment on above: Ordered: 06/23/2021 Bone &/joint imaging whole body NM BONE WHOLE BODY Radiology Routine Renal cell carcinoma of right kidney (HCC) Ordered: 03/11/2022 [facility] Work Phone: Comment on above: Ordered: 03/11/2022 CBC W Auto Different ial panel - Blood [facility] CBC W Auto Different ial panel - Blood [facility] CLINICAL TRIAL DRAW CLINICAL TRI AL DRAW Lab STAT Malignant neoplasm of right kidney, except renal pelvis (HCC) 08/08/2021 9:04 AM EDT [facility] Work Phone: End: 08-27-2022 Ct abdomen & pelvis w/contrast material CT ABD/PEL W IVCON Radiology Routine Malignant neoplasm of right kidney, except renal pelvis (HCC) Malignant neoplasm of kidney excluding renal pelvis, unspecified laterality (HCC) 1 Occurrences starting 07/28/2021 until 08/27/2022 [facility] Work Phone: Comment on above: 1 Occurrences starti ng 07/28/2021 until 08/27/2022 End: 09-19-2022 Ct abdomen & pelvis w/contrast material CT ABD/PEL W IVCON Radiology Routine Malignant neoplasm of right kidney, except renal pelvis (HCC) Malignant neoplasm of kidney excluding renal pelvis, unspecified laterality (HCC) 1 Occurrences starting 08/21/2021 until 09/19/2022 [facility] Work Phone: Comment on above: 1 Occurrences starti ng 08/21/2021 until 09/19/2022 Ct abdomen & pelvis w/contrast material CT ABD/PEL W IVCON Radiology Routine Renal cell carcinoma of right kidney (HCC) Ordered: 03/11/2022 [facility] Work Phone: Comment on above: Ordered: 03/11/2022 CT Abdomen and Pelvi s WO contrast [facility] CT CHEST W IVCON CT CHEST W IVCO N Radiology Routine Renal cell carcinoma of right kidney (HCC) Ordered: 03/11/2022 [facility] Work Phone: Comment on above: Ordered: 03/11/2022 CT Chest WO contrast [facility] End: 09-19-2022 Ct thorax w/contrast material CT CHEST W IVCON Radiology Routine Malignant neoplasm of right kidney, except renal pelvis (HCC) Malignant neoplasm of kidney excluding renal pelvis, unspecified laterality (HCC) 1 Occurrences starting 08/21/2021 until 09/19/2022 [facility] Work Phone: Comment on above: 1 Occurrences starti ng 08/21/2021 until 09/19/2022 End: 07-11-2022 ECG COMPLETE ECG COMPLETE ECG Routine Malignant neoplasm of right kidney, except renal pelvis (HCC) 1 Occurrences starting 07/11/2021 until 07/11/2022 [facility] Work Phone: Comment on above: 1 Occurrences starti ng 07/11/2021 until 07/11/2022 [facility] End: 12-30-2022 ECG COMPLETE ECG COMPLETE ECG Routine Renal cell carcinoma of right kidney (HCC) 1 Occurrences starting 12/30/2021 until 12/30/2022 [facility] Work Phone: Comment on above: 1 Occurrences starti ng 12/30/2021 until 12/30/2022 End: 02-16-2023 ECHO LIMITED ECHO LIMITED Cardiology Routine Acute decompensated heart failure (HCC) Paroxysmal atrial fibrillation (HCC) 1 Occurrences starting 02/16/2022 until 02/16/2023 [facility] Work Phone: Comment on above: 1 Occurrences starti ng 02/16/2022 until 02/16/2023 End: 07-11-2022 Echocardiography ECHO Cardiology Routine Malignant neoplasm of right kidney, except renal pelvis (HCC) 1 Occurrences starting 07/11/2021 until 07/11/2022 [facility] Work Phone: Comment on above: 1 Occurrences starti ng 07/11/2021 until 07/11/2022 Elastase.pancreatic [Presence] in Stool [facility] INR in Blood by Coagulation assay [facility] INR in Blood by Coagulation assay [facility] INR in Blood by Coagulation assay [facility] Lactate dehydrogenas e measurement [facility] Magnesium [Mass/volu me] in Serum or Plasma [facility] Magnesium measurement [facility] End: 09-07-2022 Mri abdomen w/o & w/contrast material MRI KIDNEY WO/W IVCON Radiology Routine Other specified disorders of kidney and ureter 1 Occurrences starting 08/08/2021 until 09/07/2022 [facility] Work Phone: Comment on above: 1 Occurrences starti ng 08/08/2021 until 09/07/2022 End: 08-13-2022 Mri brain brain stem w/o w/contrast material MRI BRAIN WO/W IVCON Radiology Routine Malignant neoplasm of kidney excluding renal pelvis, unspecified laterality (HCC) Renal cell carcinoma, unspecified laterality (HCC) 1 Occurrences starting 07/14/2021 until 08/13/2022 [facility] Work Phone: Comment on above: 1 Occurrences starti ng 07/14/2021 until 08/13/2022 NM Heart Views W str ess and W radionuclide IV [facility] End: 07-22-2022 OUTSIDE LISA OUTSIDE LISA Cardiology Routine Nonrheumatic mitral valve regurgitation 1 Occurrences starting 07/22/2021 until 07/22/2022 [facility] Work Phone: Comment on above: 1 Occurrences starti ng 07/22/2021 until 07/22/2022 Ova and parasites identified in Unspecified specimen by Light microscopy [facility] Patient Education [facility] Work Phone: Patient referral [facility] Work Phone: End: 08-19-2022 Polysomnogram POLYSOMNOGRAM (PSG) Procedures Routine Disturbance in sleep behavior 1 Occurrences starting 08/19/2021 until 08/19/2022 [facility] Work Phone: Comment on above: 1 Occurrences starti ng 08/19/2021 until 08/19/2022 End: 01-29-2023 Radiologic exam chest 2 views XR CHEST 2V FRONTAL/LAT Radiology Routine Renal cell carcinoma of right kidney (HCC) 1 Occurrences starting 12/30/2021 until 01/29/2023 [facility] Work Phone: Comment on above: 1 Occurrences starti ng 12/30/2021 until 01/29/2023 Respiratory Panel (PCR) Respirat ory Panel (PCR) [facility] Respiratory pathogen s DNA and RNA 12b panel - Unspecified specimen by SANDOVAL with probe detection [facility] T3 FREE BLD T3 FREE BLD Lab STAT Malignant neoplasm of right kidney, except renal pelvis (HCC) 07/21/2021 7:53 AM EDT [facility] Work Phone: T4 FREE/FREE THYROX T4 FREE/FREE THYROX Lab STAT Malignant neoplasm of right kidney, except renal pelvis (HCC) 07/21/2021 7:53 AM EDT [facility] Work Phone: Thyroid stimulating hormone measurement [facility] Troponin I measurement [facility] Work Phone: Troponin I measurement [facility] URINALYSIS, REFLEX MICROSCOPIC URINALYSIS, REFLEX MICROSCOPIC Lab Routine Screening for genitourinary condition Ordered: 01/23/2022 [facility] Work Phone: Comment on above: Ordered: 01/23/2022 [facility] Work Phone: [facility] Immunizations Immunization Date Immunization Notes Care Provider [facility] 01-21-2021 Pfizer-BioNTech COVID-19 Vacc 30 MCG/0.3ML Intramuscular Suspension Daksha Turner Work Phone: [facility] 06-20-2020 Covid (Pfizer) Dr. Janusz Turner Work Phone: [facility] 06-15-2020 Pfizer-BioNTech COVID-19 Vacc 30 MCG/0.3ML Intramuscular Suspension Daksha Turner Work Phone: [facility] 05-25-2020 Pfizer-BioNTech COVID-19 Vacc 30 MCG/0.3ML Intramuscular Suspension Daksha Turner Work Phone: [facility] 07-25-2018 tetanus toxoid, reduced diphtheria toxoid, and acellular pertussis vaccine, adsorbed Dawit Urbina MD Work Phone: [facility] 12-06-2013 influenza, seasonal, injectable Dawit Urbina MD Work Phone: [facility] 12-06-2013 influenza virus vaccine, unspecified formulation Noreen Morejon Work Phone: [facility] Date of Pneumonia Vaccine: Family Unavailable [facility] Work Phone: Payers Date Payer Category Payer Medicare [id number] 2023 Self-pay [id number] 2023 Medicare [id number] 2023 Self-pay [id number] 2020 Unknown [employer] [id number] 2020-Present [phone] [place] [address] [id number]. [id number] 2018 Unknown [id number]. [id number] 2016 Unknown [id number] 2015 Unknown [employer] [id number] 2015-Present [phone] [place] [address] [id number]. [id number] 2008 Unknown [employer] [id number] 2008-Present [phone] [place] [address] [id number]. [id number] 2008 Worker's Compensation [employer] [id number] 2008-Present [phone] [place] [address] Worker's Comp [id number] 2006 Unknown [id number] 1964 Unknown [id number] 2.16.840.1.024734.3.579.2. 1069 1964 Unknown [id number] 2.16.840.1.206998.3.579.2. 1069 1964 Unknown [id number] 2.16.840.1.733085.3.579.2. 356 1964 Unknown [id number] 2.16.840.1.253619.3.579.2. 356 Unknown [id number] 2.16.840.1.699250.3.579.2. 277 Unknown [id number] 2.16.840.1.524175.3.579.2. 462 Unknown [id number] 2.16.840.1.158659.3.579.2. 462 Unknown [id number] 2.16.840.1.909153.3.579.2. 462 Unknown [id number] 2.16.840.1.543810.3.579.2. 462 Unknown [id number] 2.16.840.1.093279.3.579.2. 462 Unknown [id number] 2.16.840.1.129030.3.579.2. 462 Unknown [id number] 2.16.840.1.494286.3.579.2. 462 Unknown [id number] 2.16.840.1.448135.3.579.2. 462 Unknown [id number] 2.16.840.1.681829.3.579.2. 462 Unknown [id number] 2.16.840.1.731604.3.579.2. 462 Unknown [id number] 2.16.840.1.754766.3.579.2. 462 Unknown [id number] 2.16.840.1.013455.3.579.2. 462 Unknown [id number] 2.16.840.1.089184.3.579.2. 462 Unknown [id number] 2.16.840.1.137801.3.579.2. 462 Unknown [id number] 2.16.840.1.193418.3.579.2. 462 Unknown [id number] 2.16.840.1.258703.3.579.2. 462 Unknown [id number] 2.16.840.1.513777.3.579.2. 462 Social History Date Type Detail Facility Start: 06-19-2021 End: 10-09-2021 Tobacco smoking status NHIS Never smoker [facility] Start: 1965 Sex Assigned At Male [facility] Start: 08-19-2021 End: 12-15-2022 Tobacco smoking status NHIS Smokes tobacco daily [facility] Work Phone: History of tobacco use Cigarette Smoker [facility] Work Phone: Start: 06-20-2021 End: 12-09-2021 Alcohol intake Current drinker of alcohol (finding) [facility] Start: 1965 Sex Assigned At Not on file [facility] Start: 06-10-2021 End: 01-19-2022 Exposure to SARS-CoV-2 (event) Not sure [facility] Start: 07-01-2021 End: 11-28-2021 Exposure to SARS-CoV-2 (event) Unable to assess [facility] Start: 06-04-2019 End: 12-15-2022 Tobacco smoking status NHIS Unknown if ever smoked [facility] Work Phone: Start: 06-04-2019 Spouse/ Signif icant Other [facility] Start: 06-04-2019 Secondhand [facility] Start: 08-19-2021 End: 12-09-2021 Tobacco Comment former cigarettes, now cigars 3 per day [facility] Start: 08-19-2021 End: 10-09-2021 Cigarettes smoked current (pack per day) - Reported 0.3 [facility] Start: 08-19-2021 End: 02-16-2022 Tobacco use and exposure Smokeless tobacco non-user [facility] Start: 10-27-2021 History SDOH Alcohol Comment 3 times a week per pt 10/27/2021 [facility] History of tobacco use Cigar Smoker [facility] Start: 02-16-2022 Tobacco smoking status NHIS Ex-smoker [facility] History of tobacco use Current smoker [facility] Start: 02-16-2022 End: 02-17-2022 Alcohol intake Ex-drinker (finding) [facility] Start: 02-16-2022 Tobacco Comment About a month ago smoked cigars About 3-4 years from last time smoked cigarettes [facility] Adult Depression Screening Assessment 1 [facility] Start: 06-06-2024 End: 06-22-2024 Sex Male (finding) [facility] NEGATED: Highlighted rowStart: NINF History of tobacco use Passive smoker [facility] Goals Date Patient Goal Desired Activity /State Functional Status Date Assessment Result Facility 12-17-2022 Functional status Ambulates [facility] Work Phone: 06-29-2022 Functional status Ambulates [facility] Work Phone: 05-20-2022 Functional status Activity Ability [facility] Work Phone: 05-20-2022 Functional status Patient Activity Bedres t [facility] Work Phone: 04-16-2022 Functional status Activity Ability [facility] Work Phone: 04-16-2022 Functional status Ambulates;Up ad haley [facility] Work Phone: 12-09-2021 Functional status Ambulates [facility] Work Phone: 12-08-2021 Functional status None [facility] Work Phone: Functional observable [facility] Mental Status Date Assessment Result Facility 12-17-2022 Cognitive function Voice/Name [facility] Work Phone: 06-29-2022 Cognitive function Voice/Name [facility] Work Phone: 06-27-2022 Cognitive function Voice/Name [facility] Work Phone: 05-20-2022 Cognitive function Voice/Name [facility] Work Phone: 04-16-2022 Cognitive function Voice/Name [facility] Work Phone: 02-06-2022 Cognitive functi ons [id number] [facility] 01-20-2022 Cognitive function Awake;Alert;A ppropriate;Foll ows Commands [facility] Work Phone: 12-09-2021 Cognitive function Voice/Name [facility] Work Phone: 12-07-2021 Cognitive function Voice/Name [facility] Work Phone: Clinical Notes 06-30-2004 to 06-20-2024 Note Date & Type Note Facility 06-20-2024 Evaluation note Diagnosis Onset Date Resolution 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 June 20 1:05pm Renal cell cancer chronic June 062024 1:05pm [facility] Work Phone: 1(264) 631-501104-15-2025 Evaluation note* Diagnosis Onset Date Resolution Status Admit Date Metastatic renal cell carcin paulette to bone chronic June 20, 2024 1:05pm Renal cell cancer chronic June 062024 1:05pm Atrial fibrillation inactive August 14, 2024 12:55pm Chest pain acute August 14, 2024 12:55pm Renal failure acute August 14, 12:55pm CHF (congestive heart failure) resol angy August 14, 2024 12:55pm Hypertension inactive August 14 12:55pm [facility] Work Phone: [phone]) [phone] Evaluation note* Diagnosis Onset Date Resolution Status Admit Date Metastatic renal cell carcin paulette to bone chronic June 20, 2024 1:05pm Renal cell cancer chronic June 062024 1:05pm Chest pain acute August 14, 2024 12:55pm Renal failure acute August 14, 12:55pm Atrial fibrillation chronic August 14, 2024 12:55pm CHF (congestive heart failure) resol angy August 14, 2024 12:55pm Hypertension inactive August 14 12:55pm [facility] Work Phone: 1(170) 955-103204-09-2025 Radiology Diagnostic study note [facility] Imaging Services [address] [place] [address] CT Chest, Abd, Pel w/Contrast MR#: [id number] Acct: [id number] Name: YEFRI YANEZ Rep #: [id number] : 1965 M 59 From: Manuela Holman MD PCP: Dr. Daksha Turner MD Status: REG CLI Study:CT Chest, Abd, Pel w/Contrast Date of E xam: 06/13/24 Exam# [id number] Ordering Dr: Jose Botello MD PROCEDURE: CT CHEST, ABD, PEL W/CONTRAST 06/13/2024 REASON FOR EXAM: KIDNEY CANCER IV CONTRAST ONLY TECHNIQUE: Chest, abdomen and pelvis CT with intravenous contrast. Coronal and Sagittal reconstruction series were provided. One or more dose reduction techniques were used (e.g., Automated exposure control, adjustment of the mA and/or kV according to patient size, use of iterative reconstruction technique. PATIENT PREPARATION: Per protocol ORAL CONTRAST TYPE: None. CONTRAST: Isovue 370 VOLUME: 100mL 18 gauge IV RADIATION DOSE SUMMARY: CTDlvol: 2362.9 mGy DLP: 1507.9 mGycm COMPARISON: None. FINDINGS: CT CHEST: Hardware: None Lymph nodes: No lymphadenopathy. Heart and Vasculature: The heart is normal in size. The great vessels are normal in size and caliber. No pericardial effusion. Lungs and Airways: Central airways are patent. Streaky opacity within the rightmiddle lobe, likely scarring or subsegmental atelectasis. No suspicious parenchymal abnormality. No dominant masses. Pleura: No pleural effusion or pneumothorax. Bones: There is an expansile destructive lesion along the anterolateral right 6th rib measuring approximately 4.9 x 3.6 cm concerning for osseous metastatic disease. CT ABDOMEN/PELVIS: Liver: Unremarkable Gallbladder: Unremarkable Spleen: Unremarkable Pancreas: Unremarkable Adrenals: Unremarkable Kidneys: The right kidney is surgically absent. The left kidney is unremarkable. No left-sided hydronephrosis. Bladder: No focal bladder wall thickening. Reproductive Organs: Unremarkable Bowel: Lack of oral contrast limits evaluation of the bowel. No small bowel or large bowel obstruction or dilation. The appendix is unremarkable. No free fluid. Diverticulosis within the sigmoid colon. Appendix: Unremarkable Lymph nodes: Unremarkable Vasculature: Mild infrarenal aneurysmal dilation of the descending aorta measuring approximately 4.1 x 4.0 cm Peritoneum / Retroperitoneum: Unremarkable Bones: No acute fracture. CT/CT Chest, Abd, Pel w/Contrast IMPRESSION: *Expansile destructive lesion along the anterolateral right 6th rib concerning for osseous metastatic disease. 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 *Status post right-sided nephrectomy. Reading Location: [facility] CC: Dr. Daksha Turner MD; Dr. Dangelo Botello MD ~ Return Checker: Signed [facility]10-11-2023 Progress note Author Carol Chiu [facility] December 16, 2022 12:38pm Note Date/Time December 16, 2022 1 2:38pm [facility] Medical Records Department [address] [place] [address] Progress Note - Hospitalist 12/16/22 1227 MR#: [id number] Acct: [id number] Name: YEFRI YANEZ Rep #:[id number] : 1965 57 From: Carol Chiu DO PCP: Dr. Jose Ramon Turner MD Status: ADM LISY Location: [place] [address] Reason for Visit Reason for Visit: Shortness of breath Subjective Subjective Mr. Yanez is a 57-year-old -[place]ian male who presented to the emergency department at [facility] on 12/15/2022 with worsening shortness of breath. Patient told the admitting physician that he is supposed to be wearing his oxygen all the time at home however he is only wearing it whenneeded. His oxygen was written for by Dr. Yanez and is to be 3 L [id number]. He does have a history of systolic heart failure with an EF of 40% on his most recent echo which was done in April 2022. He is on diuretics at home use being Bumex 2 mg p.o. twice daily. It does sound like he is indiscretion and with his fluid intake as well as his sodium intake. He alsohas a history of metastatic renal cancer and is on immunotherapy for this. His BNP was markedly elevated at the time of admission at 574 but had been 220 in November of this past year. His chest x-ray also continue to showed a right- sided chest mass that is stable when compared to previous but there was a possible superimposed consolidation that they felt was potentially pneumonia. The patient did not have a leukocytosis on presentation was not febrile. He wasalso not coughing any sputum or having fevers at home per his report. Strep pneumo and Legionella antigens were obtained and negative. He was given Levaquin and placed on IV Bumex and admitted to the medical floor. Today the patient states that he is feeling somewhat better however not back to his baseline. We did verify that he is supposed to be on 3 L [id number] of oxygen. He tells me that he is wearing it consistently but there seems to besome conflicting information at presentation where he stated he was only wearingthis and when he felt like he needed it. Objective Data Objective Data Vital Signs: Vital Signs Temp Pulse Resp BP Pulse Ox O2 Del Method O2 Flow Rate 97.5 F L 80 16 133/102 H 99 Nasal Cannula 2 12/16/22 09:34 12/16/22 09:34 12/16/22 09:34 12/16/22 09:34 12/16/22 09:34 12/16/22 10:00 12/16/22 10:00 Oxygen Flow Rate (L/min) 2 Oxygen Delivery Method Nasal Cannula Weight: 123.2 kg Body Mass Index (BMI) 37.8 Intake & Output: Intake and Output for Last 24 Hours 12/14/22 12/15/22 12/16/22 23:59 23:59 23:59 Intake Total 350 / 750 400 / 400 Balance 350 / 750 400 / 400 Lab / Micro Data 12/16/22 06:19 12/16/22 06:19 Labs: Laboratory Results - last 24 hr 12/15/22 12:41: WBC 7.6, RBC 4.01 L, Hgb 14.0, Hct 42.4, MCV 105.7 H, MCH 34.9 H, MCHC 33.0, RDW Std Deviation 70.7 H, RDW Coeff of Lizzie 18.0 H, Plt Count 173, MPV 11.2, Immature Gran % (Auto) 0.400, Neut % (Auto) 87.2 H, Lymph % (Auto) 7.4L, Barrow % (Auto) 4.6, Eos % (Auto) 0.1, Baso % (Auto) 0.3, Absolute Neuts (auto)6.6, Absolute Lymphs (auto) 0.56 L, Nucleated RBC % 0.4, PT 25.4 H, INR 2.3, Sodium 137, Potassium 4.9, Chloride 109 H, Carbon Dioxide 24.0, Anion Gap 4 L, BUN 19 H, Creatinine 1.92 H, Estim Creat Clear Calc 44.67, Est GFR (MDRD) Af Amer 46 L, Est GFR (MDRD) Non-Af 38 L, BUN/Creatinine Ratio 9.9 L, Glucose 107 H, Calcium 9.0, Troponin I High Sens 40, B-Natriuretic Peptide 574.1 H 12/16/22 06:19: WBC 5.5, RBC 3.75 L, Hgb 13.0, Hct 38.5 L, MCV 102.7 H, MCH 34.7H, MCHC 33.8, RDW Std Deviation 65.9 H, RDW Coeff of Lizzie 17.3 H, Plt Count 158, MPV 10.6, Immature Gran % (Auto) 0.500, Neut % (Auto) 79.3 H, Lymph % (Auto) 12.9 L, Barrow % (Auto) 6.0, Eos % (Auto) 0.9, Baso % (Auto) 0.4, Absolute Neuts (auto) 4.4, Absolute Lymphs (auto) 0.71 L, Nucleated RBC % 0, Differential Comment SCANNED, Anisocytosis 2+, Macrocytosis 2+, PT 30.2 H, INR 2.8, Sodium 140, Potassium 4.0, Chloride 110 H, Carbon Dioxide 27.0, Anion Gap 3 L, BUN 18, Creatinine 1.57 H, Estim Creat Clear Calc 54.62, Est GFR (MDRD) Af Amer 59 L, Est GFR (MDRD) Non-Af 48 L, BUN/Creatinine Ratio 11.5, Glucose 110 H, Calcium 8.5 Micro: Microbiology 12/15/22 15:20 Urine, Clean Catch Legionella Antigen - Final 12/15/22 15:20 Urine, Clean Catch Streptococcus pneumoniae Antigen (M - Final Radiography Diagnostic Testing: Radiology Impression Chest X-Ray 12/15/22 13:13 IMPRESSION: Similar-appearing right pleural base mass compared to prior with superimposed areas of infiltrate/pneumonia within the right lower lobe and right middle lobe not excluded, clinically correlate. Electronically Signed: Jose Turner, at 13:37 EDT , Rhythm Strip Rhythm Strip: A-fib Rate: 120 Ectopy: None Physical Exam Const alert, oriented x3, no apparent distress and well nourished; Negative for average body habitus or healthy appearing Constitutional Narrative: Obese, -Lithuanian, male, lying in bed, appears comfortable and nontoxic, nursing at bedside HEENT head/scalp atraumatic, moist oral mucous membranes and oropharynx normal HEENT Narrative: Mallampati 3, no thrush Resp normal respiratory effort, no retractions, no use of accessory muscles and No clear to auscultation bilaterally Resp Narrative: Few crackles at bases bilaterally but otherwise clear, no signs of respiratory distress Auscultation: crackles; Negative for rhonchi or wheezes Cardio regular rate, regular rhythm, S1 normal heart sound, S2 normal heart sound, no murmurs, no rub, no gallops and no clicks GI normal to inspection, nondistended, normoactive bowel sounds, soft to palpation and non-tender Extremity no clubbing, cyanosis or edema Extremity Narrative: Pedal pulses are 2+ Neuro oriented x3, moves all extremities and no focal motor deficits Speech: speech normal Psych affect normal Psych Narrative: Very pleasant, interacts appropriately Assessment & Plan Assessment/Plan (1) Acute on chronic systolic heart failure: (2) Shortness of breath: (3) Abnormal chest x-ray: PLAN: Plan Acute on chronic HFrEF -BNP is elevated significantly compared to his recent assessment in November -Patient is on his baseline oxygen currently of 3 L however he continues to havesome shortness of breath and mild crackles at bases bilaterally -We will discontinue Levaquin as my suspicion is very low for infection given his normal white count and no symptoms that are suggestive of pneumonia other than shortness of breath -Most recent echocardiogram from 04/14/2022 demonstrated an EF of 40% with mild tomoderate global hypokinesis of the LV, moderate biatrial enlargement, mild aortic valve insufficiency -Continue IV Bumex -Continue fluid restriction -Add sodium restriction--> discussed the importance of this with the patient prior to discharge as I suspect sodium indiscretion and fluid indiscretion is the reason for his required admission -Daily weights -Accurate I's and O's CKD stage IIIb -Baseline serum creatinine appears to run between 1.5 and 1.8 -Current serum creatinine despite diuresis is 1.57 -Repeat BMP in a.m. 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 Aravind Lopez at [facility] -Currently on immunotherapy -Patient has undergone radiation as well to his right kidney area -Recommend close outpatient follow-up after discharge Hypertension -Continue home carvedilol -Continue home losartan -Hold home Bumex and restart at discharge -Continue home Aldactone Atrial fibrillation -Continue beta-blockade -Continue Coumadin -Repeat a.m. INR -INR is 2.8 Hyperlipidemia -Continue home statin GERD -Continue home Protonix NIMCO -Continue nocturnal CPAP Tobacco abuse -Recommend cessation -Will order nicotine patch if patient needs DVT prophylaxis -INR therapeutic -Repeat INR in a.m. Charges/Coding Visit Charges Inpatient E&M: 23890 Subs Hosp L2 12/16/22 1230 <Electronically signed by Carol Chiu DO> Cosigner Signature (if applicable): CC: ~ Signed [facility] Work Phone: 1(522) 406-378910-10-2023 History and physical note Author Marquise Padilla [facility] December 15, 2022 7:30pm Note Date/Time December 15, 2022 4 :56pm [facility] Medical Records Department [address] [place] [address] H&P Exam - Hospitalist 12/15/22 1648 MR#: [id number] Acct: [id number] Name: YEFRI YANEZ Rep #:[id number] : 1965 57 From: Marquise ogden MD PCP: Dr. Jose Ramon Turner MD Status: ADM LISY Location: [place] [address] HPI - General General Date of Admission: 12/15/22 HPI Narrative YEFRI YANEZ, is a 57 M who presents to the hospital with increased shortnessof breath. He states that he supposed be wearing his oxygen at home all the time but he wears it only as needed. He does have a history of systolic CHF with an EF of 40% on an echo back in April of this year chest x-ray today demonstrated a continued right-sided chest wall mass from his metastatic renal cancer but with a superimposed consolidation consistent with pneumonia, he does not have a leukocytosis and he is not febrile. [facility] and he is currently on immunotherapy for his renal cancer. Also of note in the ED his BNP was elevated at 574, but earlier in November it was down to 220. PFSH Medical History Atrial fibrillation Atrial fibrillation CKD (chronic kidney disease) CKD (chronic kidney disease), stage III COPD (chronic obstructive pulmonary disease) GERD (gastroesophageal reflux disease) Hyperlipidemia Hypertension Metastatic renal cell carcinoma to bone NIMCO on CPAP Renal cell cancer Systolic CHF Tobacco use Home Medications cyclobenzaprine 10 mg tablet 10 mg PO TID PRN Spasms 12/07/21 [History Last Taken Unknown] albuterol sulfate 2.5 mg/3 mL (0.083 %) solution for nebulization 2.5 mg (3 mL) inhalation PRN PRN Shortness Of Breath #75 mL 06/29/22 [Rx Last Taken Unknown] ferrous sulfate 325 mg (65 mg iron) tablet 325 mg PO BID #30 tabs 06/29/22 [Rx Last Taken Unknown] fluticasone fur. 100 mcg-umeclid 62.5 mcg-vilant 25 mcg inhalat.powder (Trelegy Ellipta) 1 inh inhalation DAILY #28 ea 06/29/22 [Rx Last Taken Unknown] nystatin 100,000 unit/mL oral suspension 100,000 unit PO DAILY #60 mL 06/29/22 [Rx Last Taken Unknown] pantoprazole 40 mg tablet,delayed release 40 mg PO DAILY gerd #30 tabs 06/29/22 [Rx Last Taken Unknown] potassium chloride 20 mEq tablet,extended release 20 meq PO DAILY #30 tabs 06/29/22 [Rx Last Taken Unknown] rosuvastatin 40 mg tablet 40 mg PO DAILY cholesterol #30 tabs 06/29/22 [Rx Last Taken Unknown] warfarin 10 mg tablet 8 mg (0.8 x 10 mg) PO DAILY Check with primary doctor #30 tabs 06/29/22 [Rx Last Taken Unknown] bumetanide 2 mg tablet 2 mg PO BID #180 tabs 09/29/22 [Rx Last Taken Unknown] cabozantinib 20 mg tablet 20 mg PO DAILY 09/29/22 [History Last Taken Unknown] carvedilol 12.5 mg tablet 18.75 mg PO BID 09/29/22 [History Last Taken Unknown] losartan 50 mg tablet 50 mg PO DAILY #90 tabs 09/29/22 [Rx Last Taken Unknown] spironolactone 25 mg tablet 25 mg PO DAILY #90 tabs 09/29/22 [Rx Last Taken Unknown] Allergy/AdvReac Type Severity Reaction Status Date / Time lisinopril Allergy Severe Angioedema Verified 12/15/22 12:22 guaifenesin [From Mucinex] Allergy Intermediate Bleeding Verified 12/15/22 12:25 aspirin [ASA] Allergy Other Verified 12/15/22 12:22 mushroom [mushrooms] Allergy Hives Verified 12/15/22 12:22 Penicillins Allergy PT UNSURE Verified 12/15/22 12:22 OF REACTION shellfish derived Allergy Hives Verified 12/15/22 12:22 Family History Father Cancer Mother Heart disease Hypertension Myocardial infarction Surgical History History of cardiac cath (~07/2021) History of cardioversion (~09/2021) History of nephrectomy, right Social History household members: spouse and family Smoking Status: Current every day smoker tobacco type: cigars Electronic Cigarette Use: with nicotine alcohol intake: current alcohol intake frequency: a few times a month substance use type: does not use ROS Constitutional Constitutional: Reports chills, fatigue and fever(s); Denies malaise Eyes Eyes: Denies blurry vision ENT HEENT: Denies headache(s) or nasal discharge Cardiovascular Cardiovascular: Reports orthopnea; Denies chest pain, dyspnea on exertion or syncope Respiratory/Chest Respiratory/Chest: Reports cough; Denies shortness of breath at rest or shortness of breath with exertion Gastrointestinal Gastrointestinal: Denies constipation, diarrhea, nausea or vomiting Genitourinary Genitourinary: Denies dysuria Neurologic Neurologic: Denies focal weakness, numbness or tremor(s) Psychiatric Psychiatric: Denies anxiety or depression Vital Signs Vital Signs Vital Signs: 12/15/22 12:23 12/15/22 12:30 12/15/22 13:10 Temperature 96 F L Temperature Source Temporal Pulse Rate 125 H Respiratory Rate 24 H Respiratory Effort Short of Breath Respiratory Pattern Blood Pressure 132/120 H Blood Pressure Mean 124 Blood Pressure Source Blood Pressure Position Blood Pressure Location Pulse Ox 90 98 Oxygen Delivery Method Room Air Nasal Cannula Oxygen Flow Rate (L/min) 3 12/15/22 13:21 12/15/22 13:21 12/15/22 13:32 Temperature Temperature Source Pulse Rate 91 74 Respiratory Rate 14 16 Respiratory Effort Respiratory Pattern Normal Blood Pressure 124/83 H Blood Pressure Mean 96 Blood Pressure Source Blood Pressure Position Blood Pressure Location Pulse Ox 98 95 Oxygen Delivery Method Nasal Cannula Nasal Cannula Oxygen Flow Rate (L/min) 3 3 12/15/22 14:51 12/15/22 16:00 12/15/22 16:36 Temperature 98.4 F 98.5 F Temperature Source Temporal Pulse Rate 75 86 80 Respiratory Rate 18 18 18 Respiratory Effort Respiratory Pattern Blood Pressure 102/71 138/104 H 115/82 H Blood Pressure Mean 81 115 93 Blood Pressure Source Monitor Blood Pressure Position Semi-Fowlers Blood Pressure Location Left Forearm Pulse Ox 98 95 98 Oxygen Delivery Method Room Air Nasal Cannula Oxygen Flow Rate (L/min) 3 Weight Weight: 595 lb 0.442 oz Body Mass Index (BMI) 83.0 Physical Exam Narrative General: Alert, Oriented x3, Cooperative, No apparent distress HEENT: Atraumatic, PERRLA, EOMI, Normocephalic Oral: Moist Mucosa Neck: Supple, No JVD Lungs: Diminished worse on the right than the left, Normal air movement, No rhonchi, wheeze, No rales Cardiovascular: Regular rate, Regular Rhythm, Normal S1, Normal S2, No murmurs Abdomen: Soft, Non Tender, Non-Distended, No Hepato-splenomegaly Extremities: No edema, Capillary Refill Less than 3 Seconds Skin: No rashes, No breakdown Musculoskeletal: No Tenderness to Palpation of Joints or Extremities Neurological: Cranial nerves II-XII grossly intact, Motor Exam 5/5 strength throughout, Sensory exam intact to light touch and pain Psych/Mental Status: Normal Affect, Appropriate Results Lab / Micro Data 12/15/22 12:41 12/15/22 12:41 Labs: Laboratory Results - last 24 hr 12/15/22 12:41: WBC 7.6, RBC 4.01 L, Hgb 14.0, Hct 42.4, MCV 105.7 H, MCH 34.9 H, MCHC 33.0, RDW Std Deviation 70.7 H, RDW Coeff of Lizzie 18.0 H, Plt Count 173, MPV 11.2, Immature Gran % (Auto) 0.400, Neut % (Auto) 87.2 H, Lymph % (Auto) 7.4 L, Barrow % (Auto) 4.6, Eos % (Auto) 0.1, Baso % (Auto) 0.3, Absolute Neuts (auto) 6.6, Absolute Lymphs (auto) 0.56 L, Nucleated RBC % 0.4, PT 25.4 H, INR 2.3, Sodium 137, Potassium 4.9, Chloride 109 H, Carbon Dioxide 24.0, Anion Gap 4 L, BUN 19 H, Creatinine 1.92 H, Estim Creat Clear Calc 44.67, Est GFR (MDRD) Af Amer 46 L, Est GFR (MDRD) Non-Af 38 L, BUN/Creatinine Ratio 9.9 L, Glucose 107 H, Calcium 9.0, Troponin I High Sens 40, B-Natriuretic Peptide 574.1 H Rhythm Strip Rhythm Strip: A-fib Rate: 120 Ectopy: None Radiology Impression Chest X-Ray 12/15/22 13:13 IMPRESSION: Similar-appearing right pleural base mass compared to prior with superimposed areas of infiltrate/pneumonia within the right lower lobe and right middle lobe not excluded, clinically correlate. Electronically Signed: Jose TurnerDO at 13:37 EDT , Assessment & Plan Assessment/Plan (1) Pneumonia: PLAN: Plan 1. Community-acquired pneumonia superimposed on metastatic renal cancer status post right nephrectomy with a right chest wall mass/chronic hypoxic respiratory failure from COPD and NIMCO/CKD 3A ? Can resume his home immunotherapy, will continue on Levaquin p.o. every 48 hours ? We will obtain a Legionella and strep urine antigen ? We will try to obtain a sputum culture if possible ? He is supposed to be on chronic oxygen so we will place him on his home dose of 2 to 3 L nasal cannula, he develops significant respiratory distress with ambulation though he does appear fairly comfortable when laying in bed which is where the physical exam took place however I did witness nursing helping him to the bathroom and he did become significantly short of breath and currently speaking 3 word sentences and appeared tachypneic and his oxygen saturations went to 85% ? His renal function does appear to be at baseline ? Continue with his home albuterol 2. Chronic systolic CHF/HTN/chronic A-fib/HLD ? Blood pressures are currently stable monitor ? Can resume his home Coreg and Aldactone ? We will place on IV Bumex with a fluid restriction ? We will continue with his Coumadin and recheck an INR in the morning current INR of 2.3 3. GERD ? Stable ? Continue with PPI DVT: Coumadin Charges/Coding Visit Charges Inpatient E&M: 03414 Init Hosp L3 12/15/221929 <Electronically signed by Marquise Padilla MD> Cosigner Signature (if applicable): CC: Dr. Jose Ramon Turner MD; Dr. Marquise Padilla MD~ Signed [facility] Work Phone: 1(818) 258-474710-10-2023 Discharge summary Author Speedy Bass [facility] December 15, 2022 3:29pm Note Date/Time December 15, 2022 1 :13[facility] Medical Records Department [address] [place] [address] Emergency Department Summary 12/15/22 MR#: [id number] Acct: [id number] Name: YEFRI YANEZ Rep #:[id number] : 1965 57 From: Speedy Bass MD PCP: Dr. Jose Ramon Turner MD Status: REG ER Location: ED HPI History of Present Illness Chief Complaint: Palpitations Informant: patient and spouse/S.O. Associated Symptoms cough Chest Pain: Positive for None Narrative Narrative: 57-year-old male with a history of renal cell carcinoma status post nephrectomy as well as systolic congestive heart failure, states that for the past 3 or 4 days he has had cough, subjective fever, occasional minor hemoptysis, chest tightness, wheezing/dyspnea. 2 days ago he felt himself go into A-fib which shehas a history of, he is usually in a sinus rhythm, and he has not felt like he went out of it since so he presents because everything is worse. He has orthopnea. No leg edema. Does not think he has been drinking more fluids than usual or any excessive amounts of salt, he has been using albuterol at home for his dyspnea and it has been helping it temporarily and partially. He has wheezed with illness in the past but does not have COPD that he knows of. He gino oxygen at home, the states the first day, when the patient states he wasnot nearly as bad, he had 1 episode of hypoxemia at 60% based on their home pulse oximeter. PFSH PFSH Medical History Atrial fibrillation Atrial fibrillation CKD (chronic kidney disease) CKD (chronic kidney disease), stage III COPD (chronic obstructive pulmonary disease) GERD (gastroesophageal reflux disease) Hyperlipidemia Hypertension Metastatic renal cell carcinoma to bone NIMCO on CPAP Renal cell cancer Systolic CHF Tobacco use Home Medications cyclobenzaprine 10 mg tablet 10 mg PO TID PRN Spasms 12/07/21 [History Last Taken Unknown] albuterol sulfate 2.5 mg/3 mL (0.083 %) solution for nebulization 2.5 mg (3 mL) inhalation PRN PRN Shortness Of Breath #75 mL 06/29/22 [Rx Last Taken Unknown] ferrous sulfate 325 mg (65 mg iron) tablet 325 mg PO BID #30 tabs 06/29/22 [Rx Last Taken Unknown] fluticasone fur. 100 mcg-umeclid 62.5 mcg-vilant 25 mcg inhalat.powder (Trelegy Ellipta) 1 inh inhalation DAILY #28 ea 06/29/22 [Rx Last Taken Unknown] nystatin 100,000 unit/mL oral suspension 100,000 unit PO DAILY #60 mL 06/29/22 [Rx Last Taken Unknown] pantoprazole 40 mg tablet,delayed release 40 mg PO DAILY gerd #30 tabs 06/29/22 [Rx Last Taken Unknown] potassium chloride 20 mEq tablet,extended release 20 meq PO DAILY #30 tabs 06/29/22 [Rx Last Taken Unknown] rosuvastatin 40 mg tablet 40 mg PO DAILY cholesterol #30 tabs 06/29/22 [Rx Last Taken Unknown] warfarin 10 mg tablet 8 mg (0.8 x 10 mg) PO DAILY Check with primary doctor #30 tabs 06/29/22 [Rx Last Taken Unknown] bumetanide 2 mg tablet 2 mg PO BID #180 tabs 09/29/22 [Rx Last Taken Unknown] cabozantinib 20 mg tablet 20 mg PO DAILY 09/29/22 [History Last Taken Unknown] carvedilol 12.5 mg tablet 18.75 mg PO BID 09/29/22 [History Last Taken Unknown] losartan 50 mg tablet 50 mg PO DAILY #90 tabs 09/29/22 [Rx Last Taken Unknown] spironolactone 25 mg tablet 25 mg PO DAILY #90 tabs 09/29/22 [Rx Last Taken Unknown] Allergy/AdvReac Type Severity Reaction Status Date / Time lisinopril Allergy Severe Angioedema Verified 12/15/22 12:22 guaifenesin [From Mucinex] Allergy Intermediate Bleeding Verified 12/15/22 12:25 aspirin [ASA] Allergy Other Verified 12/15/22 12:22 mushroom [mushrooms] Allergy Hives Verified 12/15/22 12:22 Penicillins Allergy PT UNSURE Verified 12/15/22 12:22 OF REACTION shellfish derived Allergy Hives Verified 12/15/22 12:22 Family History Father Cancer Mother Heart disease Hypertension Myocardial infarction Surgical History History of cardiac cath (~07/2021) History of cardioversion (~09/2021) History of nephrectomy, right Social History household members: spouse and family Smoking Status: Current every day smoker tobacco type: cigars Electronic Cigarette Use: with nicotine alcohol intake: current alcohol intake frequency: a few times a month substance use type: does not use ROS ROS ED Constitutional Constitutional ED: Reports body ache(s), chills, fatigue, fever(s), headache(s) and malaise Eyes Eyes: Denies change in vision or diplopia ENT ENT ED: Denies rhinorrhea or sore throat Cardiovascular Cardiovascular: Denies chest pain or palpitations Respiratory/Chest Respiratory/Chest: Reports cough, dyspnea and dyspnea on exertion Gastrointestinal Gastrointestinal: Reports diarrhea; Denies abdominal pain, nausea or vomiting Genitourinary Genitourinary ED: Denies dysuria or hematuria Musculoskeletal Musculoskeletal: Denies back pain or neck pain Integumentary Denies abscess or rash Neurologic Neurologic: Reports headache(s); Denies paresthesias or weakness Psychiatric Psychiatric: Denies anxiety or suicidal thoughts EXAM Physical Exam Const Vital Signs: 12/15/22 12:23 12/15/22 12:30 12/15/22 13:10 Temperature 96 F L Temperature Source Temporal Pulse Rate 125 H Respiratory Rate 24 H Respiratory Effort Short of Breath Respiratory Pattern Blood Pressure 132/120 H Blood Pressure Mean 124 Pulse Ox 90 98 Oxygen Delivery Method Room Air Nasal Cannula Oxygen Flow Rate (L/min) 3 12/15/22 13:21 12/15/22 13:21 12/15/22 13:32 Temperature Temperature Source Pulse Rate 91 74 Respiratory Rate 14 16 Respiratory Effort Respiratory Pattern Normal Blood Pressure 124/83 H Blood Pressure Mean 96 Pulse Ox 98 95 Oxygen Delivery Method Nasal Cannula Nasal Cannula Oxygen Flow Rate (L/min) 3 3 12/15/22 14:51 Temperature Temperature Source Pulse Rate 75 Respiratory Rate 18 Respiratory Effort Respiratory Pattern Blood Pressure 102/71 Blood Pressure Mean 81 Pulse Ox 98 Oxygen Delivery Method Room Air Oxygen Flow Rate (L/min) Positive well nourished and well developed Constitutional Narrative: Malaised-appearing, no distress General Appearance ED: well developed and NAD HEENT Reports moist mucous membranes normocephalic and atraumatic Eyes PERRL and EOMs intact bilaterally Neck full ROM, no lymphadenopathy, supple, no meningeal signs and no JVD Resp Resp Narrative: Tachypnea without acute respiratory distress. Diffuse expiratory wheezes. Otherwise clear. Cardio no murmurs Rate: tachycardic Rhythm: abnormal rhythm irregularly irregular GI non-tender and non-distended Auscultation: normoactive bowel sounds Palpation: soft Back/Spine no CVA tenderness General Back: other FROM Extremity normal to inspection and no calf tenderness General Extremety ED: Negative for edema, pulses abnormal or tenderness General Extremity: Negative for edema or pulses abnormal Neuro oriented x3, CN's II-XII intact bilaterally and no sensory deficits noted Sensorium / Orientation: awake and alert Motor Exam: strength 5/5 throughout Psych mental status grossly normal Skin no rashes or lesions noted and no wounds MDM MDM MDM Narrative Medical decision making narrative: Differential includes congestive heart failure, bronchitis with wheezing, pneumonia. 2 view chest x-ray mitral rotation does show the radiopaque right chest wall mass that he has had on prior imaging as well as superimposed infiltrate, radiology in agreement. He does not have a significant leukocytosis, but given his symptoms of fevers minor hemoptysis I suspect this is more pneumonia/infection. His BNP is higher than it had been in the past but so is his creatinine. He does have a predilection of neutrophils on the CBC, more consistent with infection. I think treating him for both is more reasonable. His atrial fibrillation was rate controlled at times but tachycardic the majority of the time so prior to giving him albuterol/Atrovent he was given Cardizem 20 mg IV, this did help to rate control him and his pressure maintained 102/71 at its gonsalo, and he felt a little better after the breathing treatment. However with ambulation, he cannot make it very far before he has to rest, he went down to 86% although this is room air. On further discussions he has oxygen at home that he has been told to use 24/7 now with 3 L so I am not as concerned about the hypoxemia on room air, however he states he is really struggling to breathe and if he does more albuterol at home he will likely be in A-fib with RVR, I think admission is most appropriate given his respiratory insufficiency is the main reason for that. Started on antibiotics and also given a dose of Bumex IV here. History & Record Review Additional record(s) reviewed:: Prior outpatient record (Last echo in April, ejection fraction 40%, no major valvular issues.) Lab Data Attestation: I reviewed the patient's lab results. Labs: Laboratory Results - last 24 hr 12/15/22 12:41 WBC 7.6 RBC 4.01 L Hgb 14.0 Hct 42.4 MCV 105.7 H MCH 34.9 H MCHC 33.0 RDW Std Deviation 70.7 H RDW Coeff of Lizzie 18.0 H Plt Count 173 MPV 11.2 Immature Gran % (Auto) 0.400 Neut % (Auto) 87.2 H Lymph % (Auto) 7.4 L Barrow % (Auto) 4.6 Eos % (Auto) 0.1 Baso % (Auto) 0.3 Absolute Neuts (auto) 6.6 Absolute Lymphs (auto) 0.56 L Nucleated RBC % 0.4 PT 25.4 H INR 2.3 Sodium 137 Potassium 4.9 Chloride 109 H Carbon Dioxide 24.0 Anion Gap 4 L BUN 19 H Creatinine 1.92 H Estim Creat Clear Calc 44.67 Est GFR (MDRD) Af Amer 46 L Est GFR (MDRD) Non-Af 38 L BUN/Creatinine Ratio 9.9 L Glucose 107 H Calcium 9.0 Troponin I High Sens 40 B-Natriuretic Peptide 574.1 H Radiography Chest X-Ray - ED: 2 View, Read by ED Physician and Right Infiltrate Diagnostic Testing: Clinical Impression(s) from Imaging Studies Chest X-Ray 12/15/22 13:13 IMPRESSION: Similar-appearing right pleural base mass compared to prior with superimposed areas of infiltrate/pneumonia within the right lower lobe and right middle lobe not excluded, clinically correlate. Electronically Signed: Jose Turner DO at 13:37 EDT , Rhythm Strip Rhythm Strip: A-fib Rate: 120 Ectopy: None EKG Initial EKG: Attestation: I personally reviewed and interpreted this EKG as follows: Interpretation: No Acute Injury Pattern and Atrial Fibrillation Prior EKG tracings: available for review Prior: Unchanged Management Discussion w/another healthcare provider: Hospitalist Discharge Plan Triage Chief Complaint: Palpitations Other Complaint: Chest Pain ED Provider: Speedy Bass Dx/Rx/DC Orders Clinical Impression: Hemoptysis, Acute respiratory insufficiency, Acute systolic heart failure, Chronic a-fib, Acute on chronic renal insufficiency, Warfarin-induced coagulopathy, Pneumonia Prescriptions: No Action carvedilol 12.5 mg tablet 18.75 mg PO BID spironolactone 25 mg tablet 25 mg PO DAILY Qty: 90 3RF bumetanide 2 mg tablet 2 mg PO BID Qty: 180 3RF losartan 50 mg tablet 50 mg PO DAILY Qty: 90 3RF cyclobenzaprine 10 mg Tablet 10 mg PO TID PRN (Reason: Spasms) cabozantinib 20 mg tablet 20 mg PO DAILY albuterol sulfate 2.5 mg /3 mL (0.083 %) solution for nebulization 2.5 mg inhalation PRN PRN (Reason: Shortness Of Breath) Qty: 75 0RF warfarin 10 mg Tablet 8 mg PO DAILY Qty: 30 0RF pantoprazole 40 mg tablet,delayed release (DR/EC) 40 mg PO DAILY Qty: 30 0RF ferrous sulfate 325 mg (65 mg iron) Tablet 325 mg PO BID Qty: 30 0RF rosuvastatin 40 mg Tablet 40 mg PO DAILY Qty: 30 0RF potassium chloride 20 mEq tablet extended release 20 meq PO DAILY Qty: 30 0RF Trelegy Ellipta 100-62.5-25 mcg blister with device 1 inh inhalation DAILY Qty: 28 0RF nystatin 100,000 unit/mL suspension 100,000 unit PO DAILY Qty: 60 0RF Rx Instructions: administer 1/2 of dose in each side of the mouth Primary Care Provider: Jose Ramon Turner Referrals: Jose Ramon Turner MD [Primary Care Provider] - Disposition Disposition: Acute Care Hospital [facility] What to do if you have Problems For any increased pain, shortness of breath, bleeding, nausea or vomiting, chestpain, or any unexpected problems, contact your Primary Care Provider. Call [facility] ([phone]) or report to the closest Emergency Room. Call 911 if necessary. 12/15/22 0918 <Electronically signed by Speedy Bass MD> Cosigner Signature (if applicable): CC: Dr. Jose Ramon Turner MD ~ Signed [facility] Work Phone: [phone]) 362-559104-24-[address] Chiu [facility] June 29, 2022 11:24am Note Date/Time June 29, 2022 11: 08am [facility] Medical Records Department [address] [place] [address] Discharge Summary 06/29/22 1105 MR#: [id number] Acct: [id number] Name: YEFRI YANEZ Rep #[id number] : 1965 57 From: Carol Chiu DO PCP: Dr. Jose Ramon Turner MD Status: ADM IN Location: [address] Providers Date of Admission: 06/28/22 Date of Discharge: 06/29/22 Primary Care Physician: Dr. Jose Ramon Turner MD Reason For Visit: Shortness of breath Diagnosis Discharge Diagnosis (1) Acute exacerbation of CHF (congestive heart failure): Status: Chronic Code(s): I50.9 - Heart failure, unspecified (2) Atrial fibrillation: Status: Acute Code(s): I48.91 - Unspecified atrial fibrillation (3) Dyspnea: Status: Acute Code(s): R06.00 - Dyspnea, unspecified Medications at Discharge Home Medications cabozantinib 20 mg tablet 20 mg PO DAILY 12/07/21 cyclobenzaprine 10 mg tablet 10 mg PO TID PRN Spasms 12/07/21 albuterol sulfate 2.5 mg/3 mL (0.083 %) solution for nebulization 2.5 mg (3 mL) inhalation PRN PRN Shortness Of Breath #75 mL 06/29/22 bumetanide 2 mg tablet 2 mg PO BID #60 tabs 06/29/22 carvedilol 12.5 mg tablet 18.75 mg PO BID #90 tabs 06/29/22 ferrous sulfate 325 mg (65 mg iron) tablet 325 mg PO BID #30 tabs 06/29/22 fluticasone fur. 100 mcg-umeclid 62.5 mcg-vilant 25 mcg inhalat.powder (Trelegy Ellipta) 1 inh inhalation DAILY #28 ea 06/29/22 losartan 50 mg tablet 50 mg PO DAILY #30 tabs 06/29/22 nystatin 100,000 unit/mL oral suspension 100,000 unit PO DAILY #60 mL 06/29/22 pantoprazole 40 mg tablet,delayed release 40 mg PO DAILY gerd #30 tabs 06/29/22 potassium chloride 20 mEq tablet,extended release 20 meq PO DAILY #30 tabs 06/29/22 rosuvastatin 40 mg tablet 40 mg PO DAILY cholesterol #30 tabs 06/29/22 spironolactone 25 mg tablet 25 mg PO DAILY #30 tabs 06/29/22 warfarin 10 mg tablet 8 mg PO DAILY Check with primary doctor #30 tabs 06/29/22 Hospital Course Operations None Procedures None Summary of Care Provided Minutes Spent on Discharge: 37 Hospital Course: Mr. Yanez is a 57-year-old white male with a complicated past medical historywho presented to the emergency department with new onset dyspnea, chest pain, wheezing and cough on 06/28/2022. He had recently been taking his Bumex but taking an incorrect dose only taking it once a day versus twice daily. He had some mild chest discomfort on presentation that improved with aerosol treatmentsand he recently returned from a 7-day cruise. He denied any weight gain but didreport chronic orthopnea. Oxygen saturation on presentation was 93% on room airand he was found to be in A-fib with RVR having a heart rate of 108. Laboratorydata was otherwise fairly unremarkable other than a mildly elevated BNP at 278.3. Chest x-ray showed a right-sided pleural base mass which was unchanged from previous and cardiomegaly. Rapid flu and COVID-19 antigens were negative. Respiratory viral panel was unremarkable. Given his recent noncompliance with home diuretics it was suspected that was predominantly related to acute exacerbation of CHF. He was admitted to the PCU and maintained on IV diuresis. Troponin was not elevated and he did well with diuresis. He did require some supplemental oxygen at 2 L at maximum during hospital stay but nothing higher than this. An ambulatory oxygen saturation was obtained prior to discharge and he was 95% at rest and 98% with exertion indicating he did not need oxygen. I did discuss with him the importance of compliance. He stated he read the Bumex dosing incorrectly and was only taking it once a day. There is not been any recent change in his medication and he has been compliant with his Aldactone. He did request discharge with new prescriptions for his home medications as he was not able to get his home medications filled by his primary care physician brent required a visit prior to performing that. He does have a visit scheduled on 07/08/2022. I discussed with him the importance of ongoing compliance. He is on Coumadin at baseline for paroxysmal atrial fibrillation. His INR was therapeutic throughout his hospital stay and was 2.1. He was supposed to follow-up with his primary care physician as scheduled and continue ongoing management with his INR as he had prior to admission. Prescriptions for his medications were sent to his local pharmacy for 1 month supply and we did obtaina new nebulizer for him prior to discharge as he indicated his 1 at home was no longer working. He was discharged home in stable condition on room air on 06/29/2022. Discharge diagnoses: Atrial fibrillation with RVR--> now rate controlled Acute on chronic HFrEF-resolved COPD Metastatic renal cell carcinoma CKD stage IIIa Hypertension Hyperlipidemia GERD NIMCO Tobacco abuse Physical Exam Narrative Patient states he is feeling much better overall. Indicates he made a mistake and dosing his Bumex and was only taking it once daily instead of twice daily. Asked for refills on all his prescriptions. Indicates he also needs a new home nebulizer unit. This will be arranged through social work/case management priorto discharge. Const alert, oriented x3, no apparent distress and well nourished Constitutional Narrative: Obese, -Lithuanian, upper middle-aged, male, lying in bed talking on the phone, appears comfortable and nontoxic, currently on room air General Appearance: cooperative, comfortable, well kempt and well developed Orientation / Consciousness: awake, oriented to person, oriented to place and oriented to time HEENT normocephalic, head/scalp atraumatic, hearing grossly normal bilaterally and moist oral mucous membranes HEENT Narrative: Mallampati 3, thrush noted Eyes PERRL, EOMs intact bilaterally and conjunctivae normal Eyes Narrative: No scleral icterus Neck no lymphadenopathy, supple, no JVD and no carotid bruits Neck Narrative: Trachea midline, no thyroid enlargement Resp normal respiratory effort, no retractions, no use of accessory muscles and clearto auscultation bilaterally Resp Narrative: Diminished but clear Auscultation: Negative for rales, rhonchi or wheezes Cardio regular rate, regular rhythm, S1 normal heart sound, S2 normal heart sound, no murmurs, no rub, no gallops and no clicks GI normal to inspection, nondistended, normoactive bowel sounds, soft to palpation and non-tender Extremity no clubbing, cyanosis or edema Extremity Narrative: 2+ pedal pulses, 2+ radial pulses Skin no rashes or lesions noted, no wounds, skin turgor normal and no jaundice Neuro oriented x3, CN's II-XII intact bilaterally, moves all extremities, no focal motor deficits and no sensory deficits noted Neuro Narrative: Ambulates independently around the room Speech: speech normal Psych affect normal Psych Narrative: Very pleasant, appropriately interactive Weight / BMI Weight Weight: 124.3 kg Body Mass Index (BMI) 38.2 ABG / Lab / Microbiology Data Result Diagrams: 06/29/22 05:14 06/29/22 05:14 Laboratory: Laboratory Results - last 24 hr 06/29/22 05:14: Sodium 137, Potassium 3.9, Chloride 107, Carbon Dioxide 27.0, Anion Gap 3 L, BUN 25 H, Creatinine 1.54 H, Estim Creat Clear Calc 55.69, Est GFR (MDRD) Af Amer 60, Est GFR (MDRD) Non-Af 50 L, BUN/Creatinine Ratio 16.2, Glucose 210 H, Calcium 9.1, Triglycerides 60, Cholesterol 126, LDL Cholesterol 60, VLDL Cholesterol 12, HDL Cholesterol 54 06/29/22 05:14: WBC 9.3, RBC 4.28 L, Hgb 14.4, Hct 43.6, MCV 101.9 H, MCH 33.6 H, MCHC 33.0, RDW Std Deviation 66.1 H, RDW Coeff of Lizzie 18.0 H, Plt Count 191, MPV 11.4, Immature Gran % (Auto) 0.800, Neut % (Auto) 91.8 H, Lymph % (Auto) 2.9L, Barrow % (Auto) 4.4, Eos % (Auto) 0.0, Baso % (Auto) 0.1, Absolute Neuts (auto)8.6 H, Absolute Lymphs (auto) 0.27 L, Nucleated RBC % 2.7, Differential Comment SCANNED, Anisocytosis 2+ Microbiology: Microbiology 06/28/22 00:50 Mucosa - Nose Respiratory Panel (PCR) - Final 06/27/22 23:30 Nasal Secretion SARS-CoV-2 Antigen (Rapid) - Final D/C Instructions Discharge Diet: 1800 Calorie Control Diet, 8 Cup Fluid Restriction and 4000 mg Sodium Diet Discharge Activity: Return to Normal Activity Meaningful Use Info Meaningful Use Diagnoses (Choose all that apply): CHF CHF NASRIN/ARB ordered at discharge?: Yes Documented LVEF (%): 40 Discharge Plan Admission Admit Date/Time: 06/28/22 00:14 Primary Reason for Your Visit: Shortness of breath Attending Provider: Carol Chiu Primary Care Provider: Jose Ramon Turner Consulting Providers: Pau Wei ; Estelita Lu Discharge Orders/Prescriptions Prescriptions: New nystatin 100,000 unit/mL suspension 100,000 unit PO DAILY Qty: 60 0RF Rx Instructions: administer 1/2 of dose in each side of the mouth Continued cyclobenzaprine 10 mg Tablet 10 mg PO TID PRN (Reason: Spasms) cabozantinib 20 mg Tablet 20 mg PO DAILY bumetanide 2 mg tablet 2 mg PO BID Qty: 60 0RF albuterol sulfate 2.5 mg /3 mL (0.083 %) solution for nebulization 2.5 mg inhalation PRN PRN (Reason: Shortness Of Breath) Qty: 75 0RF warfarin 10 mg Tablet 8 mg PO DAILY Qty: 30 0RF spironolactone 25 mg tablet 25 mg PO DAILY Qty: 30 0RF pantoprazole 40 mg tablet,delayed release (DR/EC) 40 mg PO DAILY Qty: 30 0RF ferrous sulfate 325 mg (65 mg iron) Tablet 325 mg PO BID Qty: 30 0RF rosuvastatin 40 mg Tablet 40 mg PO DAILY Qty: 30 0RF potassium chloride 20 mEq tablet extended release 20 meq PO DAILY Qty: 30 0RF Trelegy Ellipta 100-62.5-25 mcg blister with device 1 inh inhalation DAILY Qty: 28 0RF Changed losartan 50 mg tablet 50 mg PO DAILY Qty: 30 0RF carvedilol 12.5 mg tablet 18.75 mg PO BID Qty: 90 0RF Discontinued albuterol 90 mcg/actuation Aerosol 90 mcg INHALATION Q4H PRN PRN (Reason: breathing) furosemide [Lasix] 40 mg Tablet 40 mg PO DAILY Referrals / Follow Up: Jose Ramon Turner MD [Primary Care Provider] - 07/08/22 1:20 pm Disposition Disposition (needs filled in before D/C Order can be placed): Home, Self Care Charges/Coding Visit Charges Inpatient E&M: 96505 Disch Hosp >30min 06/29/22 1124 <Electronically signed by Carol Chiu DO> Cosigner Signature (if applicable): CC: Dr. Jose Ramon Turner MD; Dr. Carol Chiu DO~ Signed [facility] Work Phone: [phone] Wei [facility] June 28, 2022 3:27pm Note Date/Time June 28, 2022 2:[address] [facility] Medical Records Department [address] [place] [address] Progress Note 06/28/22 1412 MR#: [id number] Acct: [id number] Name: YEFRI YANEZ Rep #[id number] : 1965 57 From: Pau Wei MD PCP: Dr. Jose Ramon Turner MD Status: ADM IN Location: [place] [address] Subjective Subjective Patient seen and examined. He still complained of shortness of breath. He deniedany cough, chest pain, palpitations, dizziness, nausea, vomiting or diarrhea. Review of systems is otherwise negative. Review of systems is otherwise negative. He has remained hemodynamically stable. Objective Data Objective Data Vital Signs: Vital Signs Temp Pulse Resp BP Pulse Ox O2 Del Method O2 Flow Rate 97.1 F L 98 18 118/84 H 100 Nasal Cannula 2 06/28/22 13:44 06/28/22 13:44 06/28/22 13:44 06/28/22 13:44 06/28/22 13:44 06/28/22 13:44 06/28/22 13:44 Oxygen Flow Rate (L/min) 2 Oxygen Delivery Method Nasal Cannula Weight: 271 lb 0.016 oz Body Mass Index (BMI) 37.8 Lab / Micro Data Result Diagrams: 06/28/22 04:32 06/28/22 04:32 Labs: Laboratory Results - last 24 hr 06/27/22 23:15: WBC 5.5, RBC 4.24 L, Hgb 14.6, Hct 43.8, MCV 103.3 H, MCH 34.4 H, MCHC 33.3, RDW Std Deviation 67.8 H, RDW Coeff of Lizzie 17.9 H, Plt Count 201, MPV 11.2, Immature Gran % (Auto) 0.900, Neut % (Auto) 75.4 H, Lymph % (Auto) 16.8 L, Barrow % (Auto) 6.0, Eos % (Auto) 0.5, Baso % (Auto) 0.4, Absolute Neuts (auto) 4.2, Absolute Lymphs (auto) 0.93, Nucleated RBC % 2.9, Differential Comment SCANNED, Anisocytosis 2+, Macrocytosis 2+ 06/27/22 23:15: PT 22.5 H, INR 2.0, APTT 46.5 H 06/27/22 23:15: Sodium 140, Potassium 3.5, Chloride 109 H, Carbon Dioxide 26.0, Anion Gap 5, BUN 27 H, Creatinine 1.84 H, Estim Creat Clear Calc 46.61, Est GFR (MDRD) Af Amer 49 L, Est GFR (MDRD) Non-Af 40 L, BUN/Creatinine Ratio 14.7, Glucose 127 H, Calcium 8.9, Troponin I High Sens 92 H 06/27/22 23:15: B-Natriuretic Peptide 278.3 H 06/27/22 23:15: Phosphorus 2.8 06/28/22 01:35: Magnesium 2.1, Troponin I High Sens 97 H 06/28/22 01:35: Procalcitonin 0.09 06/28/22 04:32: WBC 6.1, RBC 4.21 L, Hgb 14.3, Hct 43.7, MCV 103.8 H, MCH 34.0 H, MCHC 32.7, RDW Std Deviation 67.8 H, RDW Coeff of Lizzie 17.9 H, Plt Count 189, MPV 11.9, Immature Gran % (Auto) 0.700, Neut % (Auto) 92.0 H, Lymph % (Auto) 4.6L, Barrow % (Auto) 2.3, Eos % (Auto) 0.2, Baso % (Auto) 0.2, Absolute Neuts (auto)5.6, Absolute Lymphs (auto) 0.28 L, Nucleated RBC % 2.3, Differential Comment SCANNED, Polychromasia RARE, Anisocytosis 1+, Macrocytosis 1+, Ovalocytes RARE 06/28/22 04:32: PT 22.9 H, INR 2.1 06/28/22 04:32: Sodium 138, Potassium 3.7, Chloride 109 H, Carbon Dioxide 25.0, Anion Gap 4 L, BUN 25 H, Creatinine 1.85 H, Estim Creat Clear Calc 46.36, Est GFR (MDRD) Af Amer 48 L, Est GFR (MDRD) Non-Af 40 L, BUN/Creatinine Ratio 13.5, Glucose 181 H, Calcium 8.5, Total Bilirubin 0.80, AST 130 H, ALT 146 H, AlkalinePhosphatase 111, Total Protein 6.7, Albumin 3.1 L, Globulin 3.6, Albumin/Globulin Ratio 0.9, TSH 2.20 06/28/22 07:01: Troponin I High Sens 87 H Micro: Microbiology 06/28/22 00:50 Mucosa - Nose Respiratory Panel (PCR) - Final 06/27/22 23:30 Nasal Secretion SARS-CoV-2 Antigen (Rapid) - Final Radiography Diagnostic Testing: Radiology Impression Chest X-Ray 06/27/22 23:19 IMPRESSION: No change in right-sided pleural-based mass. Cardiomegaly. Electronically Signed: Lul Peters MD at 23:42 EDT , Physical Exam Const alert, oriented x3 and no apparent distress Constitutional Narrative: obese HEENT normocephalic, head/scalp atraumatic and moist oral mucous membranes Eyes PERRL and EOMs intact bilaterally Neck no lymphadenopathy and supple Lymph Lymphatic: no lymphadenopathy noted and no lymphedema noted Resp Resp Narrative: mildly diminished breath sounds bibasally, no wheezes or crackles. on 2L of oxygen by nasal canula. Cardio regular rate, regular rhythm, S1 normal heart sound, S2 normal heart sound and no murmurs GI normal to inspection, nondistended, normoactive bowel sounds, soft to palpation,non-tender and non-distended Extremity normal capillary refill, no clubbing, cyanosis or edema and no calf tenderness Skin General Skin Exam: no breakdown Neuro CN's II-XII intact bilaterally Psych thought process normal Assessment & Plan Assessment/Plan (1) Acute exacerbation of CHF (congestive heart failure): (2) Atrial fibrillation: (3) Dyspnea: PLAN: Plan #Afib with RVR * heart rate much better controlled * still feels short of breath. * Troponins are not elevated. Being diuresed with IV Lasix. * On Coreg. TSH is within normal limits. * Already on Coumadin. INR is therapeutic * #Acute on chronic exacerbation of heart failure with reduced ejection fraction. * CBC was post to be on Bumex twice daily but has been taking it once daily. * Has known EF of 40% with mild to moderate global hypokinesis of the left ventricle. * Currently being diuresed with IV Lasix. To switch back to p.o. Bumex once his shortness of breath resolved. * Titrate oxygen to maintain saturation above 90%. * #Acute on chronic COPD exacerbation. Breathing treatments. IV Solu-Medrol. Titrate oxygen to maintain saturation above 90%. Stasis nebulizer at home is broken. Case management to assist with getting a new one. #Metastatic renal cell cancer * Was diagnosed with right renal cell cancer with mets to the right ribs and rig ht chest wall in June 2021. Is s/p chemotherapy and surgery. Had palliative radiation to the lumbar spine on 1021 and is s/p radical nephrectomy in February 2022. * Currently on oral chemotherapy. Follows up with oncology. * * #CKD stage III: We will monitor creatinine. Stable. #Hypertension: On Lasix and Coreg as well as losartan and spironolactone. #Hyperlipidemia: On statin #Nicotine dependence: Counseled to quit. Nicotine patch 21 mg daily. #Obesity: BMI is 37.8. Complicates acute care, expected recovery and prognosis DVT prophylaxis: Already on Coumadin. INR is therapeutic. Charges/Coding Visit Charges Inpatient E&M: 87149 Subs Hosp L2 06/28/22 1527 <Electronically signed by Pau Wei MD> Pau Wei MD Cosigner Signature (if applicable): CC: ~ Signed [facility] Work Phone: 1(333) 141-344104-23-[address] Hastings [facility] June 28, 2022 2:56am Note Date/Time June 27, 2022 11: 30pm [facility] Medical Records Department [address] [place] [id number] Emergency Department Summary 06/27/22 MR#: [id number] Acct: [id number] Name: YEFRI YANEZ Rep #[id number] : 1965 57 From: Livan Lin PCP: Dr. Jose Ramon Turner MD Status: ADM IN Location: [place] [address] HPI History of Present Illness Chief Complaint: Chest Pain Informant: patient, spouse/S.O. and family Narrative Narrative: 10-day history worsening dyspnea with exertion with mild chest discomfort. Significant other present. Diagnosed history of CHF had a heart cath at [facility] that was negative. History of paroxysmal A-fib on warfarin. Taking his medications. Just got off the airplane from a cruise gone for 7 days. He was symptomatic then. Symptoms improved with rest. He states he does weigh himself daily stating there is no weight gain. Recent diagnosis of these issues as of February. Incidental finding from a syncopal episode at workfinding right renal cell carcinoma leading to cardiac work-up and a right nephrectomy. He was found to have CHF then along with atrial fibrillation. He has been hospitalized here twice in the last couple of months for similar. Withsleep apnea he does not sleep flat however states he would be short of breath. Denies any increasing leg swelling. Symptoms improved with rest, states he can only walk from the bed to the door before getting short of breath. Prior Similar Symptoms: Yes Recent Illness/Hospitalization: Yes CVD Risk Factors: Positive for Hypertension and Smoking PE Risk Factors: Positive for Recent Travel/Surgery PFSH PFSH Medical History Atrial fibrillation CKD (chronic kidney disease), stage III COPD (chronic obstructive pulmonary disease) GERD (gastroesophageal reflux disease) Hyperlipidemia Hypertension NIMCO on CPAP Renal cell cancer Systolic CHF Tobacco use Home Medications albuterol 90 mcg/actuation aerosol inhaler 90 mcg inhalation Q4H PRN PRN breathing 12/07/21 [History Last Taken Unknown] cabozantinib 20 mg tablet 20 mg PO DAILY 12/07/21 [History Last Taken Unknown] cyclobenzaprine 10 mg tablet 10 mg PO TID PRN Spasms 12/07/21 [History Last Taken Unknown] ferrous sulfate 325 mg (65 mg iron) tablet 325 mg PO BID 12/07/21 [History Last Taken Unknown] warfarin 10 mg tablet 8 mg PO DAILY Check with primary doctor 12/07/21 [History Last Taken Unknown] potassium chloride 20 mEq tablet,extended release 20 meq PO DAILY #30 tabs 05/20/22 [Rx Last Taken Unknown] rosuvastatin 40 mg tablet 40 mg PO DAILY cholesterol #30 tabs 05/20/22 [Rx Last Taken Unknown] fluticasone fur. 100 mcg-umeclid 62.5 mcg-vilant 25 mcg inhalat.powder (Trelegy Ellipta) 1 inh inhalation DAILY 05/22/22 [History Last Taken Unknown] spironolactone 25 mg tablet 25 mg PO DAILY 05/22/22 [History Last Taken Unknown] pantoprazole 40 mg tablet,delayed release 40 mg PO DAILY gerd 05/25/22 [History Last Taken Unknown] bumetanide 2 mg tablet 2 mg PO BID #180 tabs 06/17/22 [Rx Last Taken Unknown] albuterol sulfate 2.5 mg/3 mL (0.083 %) solution for nebulization 2.5 mg inhalation PRN PRN Shortness Of Breath 06/27/22 [History Last Taken Unknown] carvedilol 12.5 mg tablet 18.75 mg PO BID 06/27/22 [History Last Taken Unknown] furosemide 40 mg tablet (Lasix) 40 mg PO DAILY 06/27/22 [History Last Taken Unknown] losartan 50 mg tablet 50 mg PO DAILY 06/27/22 [History Last Taken Unknown] Allergy/AdvReac Type Severity Reaction Status Date / Time lisinopril Allergy Severe Angioedema Verified 05/27/22 10:45 aspirin [ASA] Allergy Other Verified 05/27/22 10:45 mushroom [mushrooms] Allergy Hives Verified 05/27/22 10:45 Penicillins Allergy PT UNSURE Verified 05/27/22 10:45 OF REACTION shellfish derived Allergy Hives Verified 05/27/22 10:45 Family History (Updated 06/28/22 @ 00:[address] Estelita Lu MD) Father Cancer Mother Heart disease Hypertension Myocardial infarction Surgical History History of cardiac cath (~07/2021) History of cardioversion (~09/2021) History of nephrectomy, right Social History (Updated 06/28/22 @ 00:[address] Estelita Lu MD) household members: spouse and family Smoking Status: Light Smoker (<10/day) Electronic Cigarette Use: with nicotine alcohol intake: current alcohol intake frequency: a few times a month substance use type: does not use ROS ROS ED Constitutional Constitutional ED: Denies chills, fever(s) or sweats Eyes Eyes: Denies change in vision ENT ENT ED: Denies dysphagia or sore throat Cardiovascular Cardiovascular: Reports chest pain and orthopnea; Denies leg edema, palpitations or racing heartbeat Respiratory/Chest Respiratory/Chest: Reports cough, dyspnea, dyspnea on exertion and orthopnea Gastrointestinal Gastrointestinal: Denies abdominal pain, diarrhea, nausea or vomiting Genitourinary Genitourinary ED: Denies dysuria, hematuria or urinary frequency Musculoskeletal Musculoskeletal: Denies back pain, extremity pain or neck pain Integumentary Denies rash or wounds Neurologic Neurologic: Denies headache(s), paresthesias or weakness EXAM Physical Exam Const Vital Signs: 06/27/22 23:04 06/27/22 23:09 06/27/22 23:44 Temperature 97.5 F L Temperature Source Temporal Pulse Rate 108 H 110 H Respiratory Rate 22 H 26 H Respiratory Effort Short of Breath Labored Respiratory Pattern Tachypnea Blood Pressure 140/103 H 148/75 H Blood Pressure Mean 115 99 Pulse Ox 93 94 Oxygen Delivery Method Room Air Room Air Positive well nourished and well developed General Appearance ED: well developed and NAD HEENT Reports moist mucous membranes normocephalic and atraumatic Eyes PERRL, EOMs intact bilaterally and conjunctivae normal General Eye ED: Yes normal appearance of both eyes Neck no lymphadenopathy and supple General: Negative for tenderness Chest Wall Chest: Negative for tenderness Resp normal respiratory effort and normal air movement Effort and Inspection: symmetric chest movement; Negative for respiratory distress Cardio regular rate and no murmurs Rhythm: abnormal rhythm Peripheral Pulses: pulses 2+ throughout GI normal to inspection, nondistended, normoactive bowel sounds and non-tender Palpation: Negative for guarding or rebound tenderness present Back/Spine no CVA tenderness and no thoracic nor lumbar tenderness Extremity normal to inspection Extremity Narrative: Minimal bilateral lower extremity edema General Extremety ED: Yes edema; Negative for tenderness General Extremity: edema Neuro oriented x3 and no sensory deficits noted Sensorium / Orientation: awake and alert Skin no rashes or lesions noted and no wounds MDM MDM MDM Narrative Medical decision making narrative: Interventions / MDM: Differential diagnosis: CHF exacerbation, recurrent atrial fibrillation, ACS Diagnosis considered but do not suspect: Pulmonary embolism, her INR is therapeutic My EKG interpretation: Atrial fibrillation rate of 106, no ST or T wave changes. Imaging independently reviewed and interpreted by myself: 2 view chest x-ray: Stable right lung mass, no pleural effusion External documents reviewed: Previous inpatient discharge records noted he was discharged on Bumex 2 mg twice daily. He was taken off torsemide in April and transition to Bumex. He is not currently on spironolactone or Lasix. Discharge weight in May last month 123.4 kg. Today's weight 126.3 kg. Copy of heart cath in July 2021 reviewed, minimal diffuse coronary disease. Test considered but not ordered:N/A ED course: EKG atrial fibrillation RVR, however heart rate will fluctuate 90s to low 100s. Blood pressure stable. Chest x-ray no pleural effusion. Labs troponin 92, is allergic at friend. He is there with his INR at 2. Troponin pending. BNP 278. 3 kg weight gain from discharge. Further discussion he has been only using Bumex once a day not twice a day. This is likely contributing. He is treated with Lasix 40 mg a day on his last admission. He is given 40 mg IV Lasix in the ED. Creatinine 1.84 stable from previous. Patient report only ambulating short distance before becoming short of breath. I discussed with hospitalist Dr. Lu for admission. Re-evaluation: stable Disposition discussed with patient/family/significant other: Patient and family Case discussed with consulting clinician: Hospitalist, Dr. Lu Lab Data Attestation: I reviewed the patient's lab results. Labs: Laboratory Results - last 24 hr 06/27/22 06/27/22 06/27/22 23:15 23:15 23:15 WBC 5.5 RBC 4.24 L Hgb 14.6 Hct 43.8 MCV 103.3 H MCH 34.4 H MCHC 33.3 RDW Std Deviation 67.8 H RDW Coeff of Lizzie 17.9 H Plt Count 201 MPV 11.2 Immature Gran % (Auto) 0.900 Neut % (Auto) 75.4 H Lymph % (Auto) 16.8 L Barrow % (Auto) 6.0 Eos % (Auto) 0.5 Baso % (Auto) 0.4 Absolute Neuts (auto) 4.2 Absolute Lymphs (auto) 0.93 Nucleated RBC % 2.9 Differential Comment SCANNED Anisocytosis 2+ Macrocytosis 2+ PT 22.5 H INR 2.0 APTT 46.5 H Sodium 140 Potassium 3.5 Chloride 109 H Carbon Dioxide 26.0 Anion Gap 5 BUN 27 H Creatinine 1.84 H Estim Creat Clear Calc 46.61 Est GFR (MDRD) Af Amer 49 L Est GFR (MDRD) Non-Af 40 L BUN/Creatinine Ratio 14.7 Glucose 127 H Calcium 8.9 Phosphorus Troponin I High Sens 92 H B-Natriuretic Peptide 06/27/22 06/27/22 23:15 23:15 WBC RBC Hgb Hct MCV MCH MCHC RDW Std Deviation RDW Coeff of Lizzie Plt Count MPV Immature Gran % (Auto) Neut % (Auto) Lymph % (Auto) Barrow % (Auto) Eos % (Auto) Baso % (Auto) Absolute Neuts (auto) Absolute Lymphs (auto) Nucleated RBC % Differential Comment Anisocytosis Macrocytosis PT INR APTT Sodium Potassium Chloride Carbon Dioxide Anion Gap BUN Creatinine Estim Creat Clear Calc Est GFR (MDRD) Af Amer Est GFR (MDRD) Non-Af BUN/Creatinine Ratio Glucose Calcium Phosphorus 2.8 Troponin I High Sens B-Natriuretic Peptide 278.3 H Radiography Diagnostic Testing: Clinical Impression(s) from Imaging Studies Chest X-Ray 06/27/22 23:19 IMPRESSION: No change in right-sided pleural-based mass. Cardiomegaly. Electronically Signed: Lul Petres MD at 23:42 EDT , Discharge Plan Dx/Rx/DC Orders Clinical Impression: Acute exacerbation of CHF (congestive heart failure), Metastatic renal cell carcinoma to bone, CKD (chronic kidney disease), Elevated troponin, Atrial fibrillation Disposition Disposition: Acute Care Hospital [facility] Discharge Date/Time: 06/28/22 01:02 What to do if you have Problems For any increased pain, shortness of breath, bleeding, nausea or vomiting, chest pain, or any unexpected problems, contact your Primary Care Provider. Call [facility] ([phone]) or report to the closest Emergency Room. Call 911 if necessary. 06/28/22 0256 <Electronically signed by Livan Lin> Cosigner Signature (if applicable): CC: Dr. Jose Ramon Turner MD ~ Signed [facility] Work Phone: 1(350) 311-767804-23-2023 History and physical note Author Dr. Lu [facility] June 28, 2022 12:52am Note Date/Time June 28, 2022 12: 20am [facility] Medical Records Department [address] [place] [address] H&P Exam - Hospitalist 06/28/22 0007 MR#: [id number] Acct: [id number] Name: YEFRI YANEZ Rep #[id number] : 1965 57 From: Estelita Lu MD PCP: Dr. Jose Ramon Turner MD Status: ADM IN Location: [place] [address] HPI - General General Date of Admission: 06/28/22 Date of Service: 06/28/22 Chief Complaint: Dyspnea, chest pain, wheezing, cough, recent incorrect Rx bumex. HPI Narrative The patient is a 57 y/o M w/ PMHx: Obesity, NIMCO on CPAP, PAF s/p prior cardioversion on coumadin, COPD, HTN, HLD, GERD, Metastatic renal CA s/p R nephrectomy, Tobacco use who presents to the [facility] ED on 06/27/22 with history of worsening dyspnea over the last 7 to 10 days with associated mild chest discomfort midsternal with exertion described as tightness rated 3-4/10, improving with aerosol treatments, recently completing a 7-day cruise with air travel with no recent weight gain with chronic orthopnea which and no recent increased weight gain prompting eventual ED evaluation. He notes he can essentially walk short distances only otherwise he becomes short of breath. Patient per report has also recently been only accidentally taking his bumex once daily instead of 2 mg po BID. He does report also a mild dry cough that hasbeen ongoing with these symptoms also. Work-up in the ED included T97.5, heart rate 108, BP 140/103, respiratory rate 22, 93% oxygenation, CBC with WBC 5.5, hemoglobin 14.6, platelet 201 without marked shift, coags with INR 2.0, PT 22.5,PTT 46.5, BMP with chloride 109, BUN/creatinine 27/1.84, glucose 127, troponin 92 with most recent prior to this noted 05/18/2372 and prior to this 04/14/2022 121, BNP 278.3, chest x-ray with right-sided pleural-based mass which is reported as unchanged in size from prior and cardiomegaly with no acute cardiopulmonary findings otherwise, rapid COVID antigen with SARS COVID negative. In the ED patient administered Lasix 40 mg IV x1. PFSH Medical History Atrial fibrillation CKD (chronic kidney disease), stage III COPD (chronic obstructive pulmonary disease) GERD (gastroesophageal reflux disease) Hyperlipidemia Hypertension NIMCO on CPAP Renal cell cancer Systolic CHF Tobacco use Home Medications albuterol 90 mcg/actuation aerosol inhaler 90 mcg inhalation Q4H PRN PRN breathing 12/07/21 [History Last Taken Unknown] cabozantinib 20 mg tablet 20 mg PO DAILY 12/07/21 [History Last Taken Unknown] cyclobenzaprine 10 mg tablet 10 mg PO TID PRN Spasms 12/07/21 [History Last Taken Unknown] ferrous sulfate 325 mg (65 mg iron) tablet 325 mg PO BID 12/07/21 [History Last Taken Unknown] warfarin 10 mg tablet 8 mg PO DAILY Check with primary doctor 12/07/21 [History Last Taken Unknown] potassium chloride 20 mEq tablet,extended release 20 meq PO DAILY #30 tabs 05/20/22 [Rx Last Taken Unknown] rosuvastatin 40 mg tablet 40 mg PO DAILY cholesterol #30 tabs 05/20/22 [Rx Last Taken Unknown] fluticasone fur. 100 mcg-umeclid 62.5 mcg-vilant 25 mcg inhalat.powder (Trelegy Ellipta) 1 inh inhalation DAILY 05/22/22 [History Last Taken Unknown] spironolactone 25 mg tablet 25 mg PO DAILY 05/22/22 [History Last Taken Unknown] pantoprazole 40 mg tablet,delayed release 40 mg PO DAILY gerd 05/25/22 [History Last Taken Unknown] bumetanide 2 mg tablet 2 mg PO BID #180 tabs 06/17/22 [Rx Last Taken Unknown] albuterol sulfate 2.5 mg/3 mL (0.083 %) solution for nebulization 2.5 mg inhalation PRN PRN Shortness Of Breath 06/27/22 [History Last Taken Unknown] carvedilol 12.5 mg tablet 18.75 mg PO BID 06/27/22 [History Last Taken Unknown] furosemide 40 mg tablet (Lasix) 40 mg PO DAILY 06/27/22 [History Last Taken Unknown] losartan 50 mg tablet 50 mg PO DAILY 06/27/22 [History Last Taken Unknown] Allergy/AdvReac Type Severity Reaction Status Date / Time lisinopril Allergy Severe Angioedema Verified 05/27/22 10:45 aspirin [ASA] Allergy Other Verified 05/27/22 10:45 mushroom [mushrooms] Allergy Hives Verified 05/27/22 10:45 Penicillins Allergy PT UNSURE Verified 05/27/22 10:45 OF REACTION shellfish derived Allergy Hives Verified 05/27/22 10:45 Family History (Updated 06/28/22 @ 00:[address] Estelita Lu MD) Father Cancer Mother Heart disease Hypertension Myocardial infarction Surgical History History of cardiac cath (~07/2021) History of cardioversion (~09/2021) History of nephrectomy, right Social History (Updated 06/28/22 @ 00:[address] Estelita Lu MD) household members: spouse and family Smoking Status: Light Smoker (<10/day) Electronic Cigarette Use: with nicotine alcohol intake: current alcohol intake frequency: a few times a month substance use type: does not use ROS ROS Narrative Admission Review of Systems: CONSTITUTIONAL: No weight loss, fever, chills, + weakness or fatigue. HEENT: Eyes: No visual loss, blurred vision, double vision or yellow sclerae. Ears, Nose, Throat: No hearing loss, sneezing, congestion, runny nose or sore throat. SKIN: No rash or itching, lesions, wounds. CARDIOVASCULAR: + Chest pain (tightness), occasional palpitations, chronic orthopnea. No edema, syncopal events. RESPIRATORY: + Shortness of breath, cough without marked sputum, wheezing, No hemoptysis. GASTROINTESTINAL: No anorexia, nausea, vomiting or diarrhea, abdominal pain, melena, BRBPR. GENITOURINARY: No dysuria, frequency, urgency or retention. NEUROLOGICAL: No headache, dizziness, syncope, paralysis, ataxia, numbness or tingling in the extremities, focal weakness, change in bowel or bladder control, seizure. MUSCULOSKELETAL: + muscle, back pain, joint pain or stiffness. HEMATOLOGIC: + anemia, bleeding or bruising. LYMPHATICS: No enlarged nodes. No history of splenectomy. PSYCHIATRIC: No history of depression or anxiety. ENDOCRINOLOGIC: No reports of sweating, cold or heat intolerance. No polyuria or polydipsia. ALLERGIES: + history of hives, angioedema. Vital Signs Vital Signs Vital Signs: 06/27/22 23:04 06/27/22 23:09 06/27/22 23:44 Temperature 97.5 F L Temperature Source Temporal Pulse Rate 108 H 110 H Respiratory Rate 22 H 26 H Respiratory Effort Short of Breath Labored Respiratory Pattern Tachypnea Blood Pressure 140/103 H 148/75 H Blood Pressure Mean 115 99 Pulse Ox 93 94 Oxygen Delivery Method Room Air Room Air Weight Weight: 278 lb 7.101 oz Body Mass Index (BMI) 38.8 Physical Exam Narrative Physical Examination: General: Awake, alert, oriented x 3 and cooperative, seated upright in the ED bed. Skin: Normal color, normal turgor, no icterus, no cyanosis. HEENT: AT/NC, EOMI, PERRLA, MMM, no carotid bruits, difficult to discern JVD secondary to very thickened neck. Lungs: Extremely diminished, greater bases, occasional very soft distant expiratory wheeze, mildly increased respiratory rate but no distress, no appreciated rales or rhonchi. Heart: Irregular irregular; no appreciated gallop, rub or murmur. Abdomen: Soft, obese, NTTP, ND, distant normal BS, no HSM. Extremities: No cyanosis, no clubbing nor peripheral pitting edema noted. Neurological: Patient awake, alert, oriented as noted, cognitive function intact; pupils equally reactive to light and accommodation, cranial nerves II-XII grossly normal, moving all 4 extremities, no focal deficits, strength moderately global decrease secondary to acute presentation complaints. Psychiatric: Affect appears fatigued, mildly increased respiratory rate but no overt distress, no acute evidence of depressive or anxiety feelings. Results Lab / Micro Data Result Diagrams: 06/27/22 23:15 06/27/22 23:15 Labs: Laboratory Results - last 24 hr 06/27/22 23:15: WBC 5.5, RBC 4.24 L, Hgb 14.6, Hct 43.8, MCV 103.3 H, MCH 34.4 H, MCHC 33.3, RDW Std Deviation 67.8 H, RDW Coeff of Lizzie 17.9 H, Plt Count 201, MPV 11.2, Immature Gran % (Auto) 0.900, Neut % (Auto) 75.4 H, Lymph % (Auto) 16.8 L, Barrow % (Auto) 6.0, Eos % (Auto) 0.5, Baso % (Auto) 0.4, Absolute Neuts (auto) 4.2, Absolute Lymphs (auto) 0.93, Nucleated RBC % 2.9 06/27/22 23:15: PT 22.5 H, INR 2.0, APTT 46.5 H 06/27/22 23:15: Sodium 140, Potassium 3.5, Chloride 109 H, Carbon Dioxide 26.0, Anion Gap 5, BUN 27 H, Creatinine 1.84 H, Estim Creat Clear Calc 46.61, Est GFR (MDRD) Af Amer 49 L, Est GFR (MDRD) Non-Af 40 L, BUN/Creatinine Ratio 14.7, Glucose 127 H, Calcium 8.9, Troponin I High Sens 92 H 06/27/22 23:15: B-Natriuretic Peptide 278.3 H Micro: Microbiology 06/27/22 23:30 Nasal Secretion SARS-CoV-2 Antigen (Rapid) - Final Radiology Impression Chest X-Ray 06/27/22 23:19 IMPRESSION: No change in right-sided pleural-based mass. Cardiomegaly. Electronically Signed: Lul Peters MD at 23:42 EDT , Assessment & Plan Assessment/Plan (1) Dyspnea: PLAN: Plan The patient is a 57 y/o M w/ PMHx: Obesity, NIMCO on CPAP, PAF s/p prior cardioversion on coumadin, COPD, HTN, HLD, GERD, Metastatic renal CA s/p R nephrectomy, Tobacco use who presents to the [facility] ED on 06/27/22 with history of worsening dyspnea over the last 7 to 10 days with associated mild chest discomfort recently completing a 7-day cruise with air travel included with symptoms improved with rest with no recent weight gain with chronic orthopnea which and no recent increased weight gain prompting eventual ED evaluation. #1. Dyspnea, chest discomfort, multifactorial, secondary to paroxsymal atrial fibrillation with RVR with elevated indeterminate cardiac enzyme and Possible CHF Exacerbation #2 as well as #3 and #4: EKG in ED w/ atrial fibrillation w/ RVR. Will admit to PCU, maintain on telemetry, obtain cardiac enzyme serial set to be cautious, obtain magnesium level, most recent echocardiogram as noted 04/14/2022, obtain TSH level. We will continue Coumadin with INR trending. Continue patient home Coreg regimen with dose x 1 now. #2. Chronic systolic CHF, possibly secondary to recently taking his medications wrong: In the ED patient administered Lasix 40 mg IV x1 however chest x-ray with no overt failure, BNP lower than previous, but he has been incorrectly taking his bumex although suspect could certainly moreso from atrial fibrillation with RVR and potentially his underlying metastatic renal cancer with right-sided pleural- based mass although similar in size per chest x-ray. 04/14/2022 echocardiogram with normal LV size, moderate concentric LVH, EF 40%, mild to moderate global hypokinesis LV, LA moderately enlarged, RA moderately enlarged, mild EDITH. We will continue coumadin with INR trending, Coreg, spironolactone, losartan, statin therapy, will pulse dose with IV lasix and transition back to bumex 06/29/22 evening. #3. Acute on chronic COPD exacerbation: Will maintain on oxygen with wean as tolerated to room air although currently not using supplementation, will hold home inhalers and especially given #1 we will transition to ATC budesonide therapy, PRN albuterol, IV methylprednisolone, HOB, IS parameters, patient with nonproductive cough but if able to give sputum's would certainly order sputum culture but at this point will obtain full respiratory viral panel, COVID antigen negative, procalcitonin requested. Patient does report that his aerosol nebulizer machine at home is broken therefore case management/social work will need to assist with this on discharge. #4. Metastatic renal cancer to the bone: History of right renal cancer stage IV with mets to the right ribs and L4 06/2021, soft tissue/right chest wall mass biopsy 07/01/2021 demonstrated metastatic renal cell cancer, treated withcabozantinib and nivolumab eventually transitioned off clinical trial secondary to insurance change, palliative radiation lumbar spine 12/2021, 02/06/2022 right radical nephrectomy at [facility], CT scan on 03/26/2022 showed no evidence of progressive disease, will continue home cabozantinib. Patient currently following with Dr. Botello with last evaluation noted 05/27/2022 with plan 3-month follow-up. Mag, Phos pending. May consider repeat CT chest if not improving w/ interventions #1 and #2. Low suspicion for PE given coumadin ongoing and INR therapeutic. #5. Chronic Kidney Disease Stage III, unclear subtype: Admission BUN/Cr 27/1.84, baseline renal function appears primarily 1.5-1.9, most recently 05/20/2022 creatinine 1.78, repeat BMP in AM. #6. Chronic anemia/iron deficiency anemia: Admission hemoglobin 14.6, baseline hemoglobin more recently 13-14, stable, continue to trend, continue iron supplementation. #7. Chronic COPD: We will temporally hold home inhaler, in the interim transition to ATC budesonide therapy, PRN albuterol, HOB, IS parameters. #8. Hypertension: Continue home regimen including Lasix, Coreg, losartan, spironolactone, bumetanide, PRN hydralazine. #9. Hyperlipidemia: We will continue patient on statin therapy. FLP in AM. #10. Tobacco Abuse: Encouraged cessation, inpatient consultation per RT, NR if desired. #11. Obesity: Weight loss and lifestyle changes encouraged. #12. GERD: Continue home PPI. #13. NIMCO: CPAP nightly. #14. DVT prophylaxis: Continue Coumadin with INR trending, admission INR therapeutic 2.0. #15. CODE status: Patient CHAITANYA is his who is present and living will is currently in place. Discussed CODE status at length including difference between FULL code, DNR-CCA and DNR-CC status. Following discussions about the differences in these status, requested Full Code status. Advanced Care Planning Face to Face Time: 16 minutes. Admission Evaluation Time spent evaluating chart, patient history, patient evaluation, care planning and discussion with specialists: 75 minutes. Charges/Coding Visit Charges Inpatient E&M: 01620 Init Hosp L3 Procedures Hospitalists Procedures: 97881 Advncd Care Plan 30 Min 06/28/22 0052 <Electronically signed by Estelita Lu MD> Cosigner Signature (if applicable): CC: Dr. Estelita Lu MD; Dr. Jose Ramon Turner MD~ Signed [facility] Work Phone: 1(744) 889-493003-15-[address] Che [facility] May 20, 2022 9:40am Note Date/Time May 20, 2022 9:[address] [facility] Medical Records Department [address] [place] [address] Discharge Summary 05/20/22 0939 MR#: [id number] Acct: [id number] Name: YEFRI YANEZ Rep #[id number] : 1965 57 From: Jesús Che DO PCP: Dr. Jose Ramon Turner MD Status: ADM IN Location: [place] [address] Providers Date of Admission: 05/18/22 Primary Care Physician: Dr. Jose Ramon Turner MD Reason For Visit: AECHF Diagnosis Discharge Diagnosis (1) CHF (congestive heart failure): Status: Acute Code(s): I50.9 - Heart failure, unspecified Qualifiers: Heart failure chronicity: acute Plan: Acute exacerbation of chronic congestive heart failure/heart failure with reduced ejection fraction -Reports he is up 15 pounds in 1 week -Troponin 73, BNP 343 with chest x-ray with left perihilar and right lower lobe reticular nodular interstitial thickening from inflammatory or early interstitial pulmonary edema -We will give 40 of IV Lasix twice daily -Daily weights -I's and O's -Fluid restriction -Had echo 04/14/2022 which demonstrated moderate concentric left ventricular hypertrophy, EF of 40%, mild to moderate global hypokinesis of the left ventricle, given echo roughly 1 month ago did not order repeat Continue carvedilol and losartan Resume Bumex 2 mg twice daily Patient states that he has been compliant with the Bumex. Patient instructed adriana himself daily and keep a record. Also advised patient to and taking no more than 1.5 L of fluid per day. (2) Thrush: Status: Acute Code(s): B37.0 - Candidal stomatitis Plan: Patient had thrush on exam today. Patient white plaques on his upper palate. Patient was started on 7-day course of nystatin swish and swallow. Plan Chronic conditions: * Atrial fibrillation-INR therapeutic at 2.8-EKG demonstrated atrial fibrillation with a rate of 91-Is chronically on Coumadin, will check daily INRs-Continue carvedilol-Coumadin dosing listed on home med list, 7 mg daily, continue * NIMCO-We will place on BiPAP at bedtime * Renal cell carcinoma status post unilateral nephrectomy in March and CKD stage IIIb-No present VIMAL, monitor daily-Is to change oncologist and follow-up with Dr. Botello-Cabozantinib continued-Home losartan continued. Patient appears to been established with oncology at the [facility] and then at [facility] but due to insurance changes, he will be following up with [place]. DVT ppx: Coumadin therapeutic Discharge home Medications at Discharge Home Medications albuterol 90 mcg/actuation aerosol inhaler 90 mcg inhalation Q4H PRN PRN breathing 12/07/21 cabozantinib 20 mg tablet 20 mg PO DAILY 12/07/21 carvedilol 6.25 mg tablet 12.5 mg PO DAILY 12/07/21 cyclobenzaprine 10 mg tablet 10 mg PO TID PRN Spasms 12/07/21 ferrous sulfate 325 mg (65 mg iron) tablet 325 mg PO BID 12/07/21 pantoprazole 40 mg tablet,delayed release 40 mg PO DAILY PRN gerd 12/07/21 rosuvastatin 40 mg tablet 40 mg PO DAILY cholesterol 12/07/21 warfarin 10 mg tablet 7 mg PO DAILY Check with primary doctor 12/07/21 losartan 50 mg tablet 50 mg PO DAILY #60 tabs 12/09/21 bumetanide 2 mg tablet 2 mg PO BIDLX #60 tabs 05/20/22 nystatin 100,000 unit/mL oral suspension 500,000 unit (5 mL) PO DAILY 7 days #35mL 05/20/22 potassium chloride 20 mEq tablet,extended release 20 meq PO DAILY #30 tabs 05/20/22 Hospital Course Operations None Procedures None Summary of Care Provided Minutes Spent on Discharge: 33 Weight / BMI Weight Weight: 123.4 kg Body Mass Index (BMI) 37.9 ABG / Lab / Microbiology Data Result Diagrams: 05/19/22 05:43 05/20/22 05:08 Laboratory: Laboratory Results - last 24 hr 05/20/22 05:08: PT 28.3 H, INR 2.7 05/20/22 05:08: Sodium 140, Potassium 3.3 L, Chloride 103, Carbon Dioxide 30.0, Anion Gap 7, BUN 21 H, Creatinine 1.78 H, Estim Creat Clear Calc 48.18, Est GFR (MDRD) Af Amer 51 L, Est GFR (MDRD) Non-Af 42 L, BUN/Creatinine Ratio 11.8, Glucose 170 H, Calcium 8.8 Microbiology: Microbiology 05/18/22 20:05 Mucosa - Nasopharyngeal Respiratory Panel (PCR) - Final D/C Instructions Discharge Diet: - (1.5liters fluid/day (or 50 oz)) Call your doctor if you observe: Shortness of breath, Swelling in the ankles andIncreased palpitations (irregular heartbeat) Meaningful Use Info Meaningful Use Diagnoses (Choose all that apply): CHF CHF NASRIN/ARB ordered at discharge?: Yes Documented LVEF (%): 40 Discharge Plan Admission Admit Date/Time: 05/18/22 18:23 Attending Provider: Jesús Che Primary Care Provider: Jose Ramon Turner Consulting Providers: Alicia Dukes Instructions Patient Instructions: Heart Failure Meds, Heart Failure Flare Up Signs, Heart Failure: Tracking Your Weight, Heart Failure Make Changes Diet, Heart Failure Discharge Orders/Prescriptions Prescriptions: New nystatin 100,000 unit/mL suspension 500,000 unit PO DAILY 7 Days Qty: 35 0RF Rx Instructions: administer 1/2 of dose in each side of the mouth potassium chloride 20 mEq tablet extended release 20 meq PO DAILY Qty: 30 0RF Continued cyclobenzaprine 10 mg Tablet 10 mg PO TID PRN (Reason: Spasms) carvedilol 6.25 mg tablet 12.5 mg PO DAILY pantoprazole 40 mg Tablet,Delayed Release (Dr/Ec) 40 mg PO DAILY PRN (Reason: gerd) ferrous sulfate 325 mg (65 mg iron) Tablet 325 mg PO BID albuterol 90 mcg/actuation Aerosol 90 mcg INHALATION Q4H PRN PRN (Reason: breathing) rosuvastatin 40 mg Tablet 40 mg PO DAILY cabozantinib 20 mg Tablet 20 mg PO DAILY warfarin 10 mg Tablet 7 mg PO DAILY losartan 50 mg tablet 50 mg PO DAILY Qty: 60 0RF bumetanide 2 mg Tablet 2 mg PO BIDLX Qty: 60 0RF Referrals / Follow Up: [facility] [Provider Group] - 05/27/22 10:30 am *[facility] [Provider Group] - Within 1 Month Jose Ramon Turner MD [Primary Care Provider] - Within 2 Weeks Disposition Disposition (needs filled in before D/C Order can be placed): Home, Self Care Charges/Coding Visit Charges Inpatient E&M: 34146 Disch Hosp >30min 05/20/22 0940 <Electronically signed by Jesús Che DO> Cosigner Signature (if applicable): CC: Dr. Jose Ramon Turner MD; Dr. Jesús Che DO~ Signed [facility] Work Phone: [phone]) 346-819003-15-[address] Che [facility] May 20, 2022 9:39am Note Date/Time May 20, 2022 9:[address] [facility] Medical Records Department [address] [place] [address] Instructions for Home/Discharge Instructions 05/20/22 0932 MR#: [id number] Acct: [id number] Name: YEFRI YANEZ Rep #:[id number] : 1965 57 From: Jesús Che DO PCP: Dr. Jose Ramon Turner MD Status: ADM IN Discharge Instructions Diet Discharge Diet: - (1.5liters fluid/day (or 50 oz)) Dressing / Incision Call your doctor if you observe: Shortness of breath, Swelling in the ankles andIncreased palpitations (irregular heartbeat) Follow Up Care Test Results: Test results from this visit will be discussed in further detail at your follow- up appointment, if applicable. Discharge Plan Admission Admit Date/Time: 05/18/22 18:23 Attending Provider: Jeúss Che Primary Care Provider: Jose Ramon Turner Consulting Providers: Alicia Dukes Instructions Patient Instructions: Heart Failure Meds, Heart Failure Flare Up Signs, Heart Failure: Tracking Your Weight, Heart Failure Make Changes Diet, Heart Failure Discharge Orders/Prescriptions Prescriptions: New nystatin 100,000 unit/mL suspension 500,000 unit PO DAILY 7 Days Qty: 35 0RF Rx Instructions: administer 1/2 of dose in each side of the mouth potassium chloride 20 mEq tablet extended release 20 meq PO DAILY Qty: 30 0RF Continued cyclobenzaprine 10 mg Tablet 10 mg PO TID PRN (Reason: Spasms) carvedilol 6.25 mg tablet 12.5 mg PO DAILY pantoprazole 40 mg Tablet,Delayed Release (Dr/Ec) 40 mg PO DAILY PRN (Reason: gerd) ferrous sulfate 325 mg (65 mg iron) Tablet 325 mg PO BID albuterol 90 mcg/actuation Aerosol 90 mcg INHALATION Q4H PRN PRN (Reason: breathing) rosuvastatin 40 mg Tablet 40 mg PO DAILY cabozantinib 20 mg Tablet 20 mg PO DAILY warfarin 10 mg Tablet 7 mg PO DAILY losartan 50 mg tablet 50 mg PO DAILY Qty: 60 0RF bumetanide 2 mg Tablet 2 mg PO BIDLX Qty: 60 0RF Referrals / Follow Up: [facility] [Provider Group] - 05/27/22 10:30 am *[facility] [Provider Group] - Within 1 Month Jose Ramon Turner MD [Primary Care Provider] - Within 2 Weeks Disposition Disposition (needs filled in before D/C Order can be placed): Home, Self Care 05/20/22 0939<Electronically signed by Jesús Che DO>Jesús Che DO CC: Dr. Jose Ramon Turner MD; Dr. Alicia Dukes MD ~ Signed [facility] Work Phone: [phone]) 172-249403-15-[address] Che [facility] May 20, 2022 9:32am Note Date/Time May 20, 2022 8:3 4am [facility] Medical Records Department [address] [facility] [place] [address] Progress Note - Hospitalist 05/20/22 0831 MR#: [id number] Acct: [id number] Name: YEFRI YANEZ Rep #[id number] : 1965 57 From: Jesús Che DO PCP: Dr. Jose Ramon Turner MD Status: ADM IN Location: [place] [id number] Reason for Visit Reason for Visit: Diagnoses Essential (primary) hypertension (05/18/22) Heart failure, unspecified (05/18/22) Objective Data Objective Data Vital Signs: Vital Signs Temp Pulse Resp BP Pulse Ox O2 Del Method FiO2 36.8 C 87 19 H 115/76 99 Bi-pap 30 05/20/22 02:30 05/20/22 02:30 05/20/22 02:30 05/20/22 02:30 05/20/22 03:23 05/20/22 02:30 05/20/22 03:23 Oxygen Delivery Method Bi-pap Weight: 123.4 kg Body Mass Index (BMI) 37.9 Intake & Output: Intake and Output for Last 24 Hours 05/18/22 05/19/22 05/20/22 23:59 23:59 23:59 Intake Total 240 / 240 480 / 480 Output Total 850 / 850 Balance -610 / -610 480 / 480 Lab / Micro Data Result Diagrams: 05/19/22 05:43 05/20/22 05:08 Labs: Laboratory Results - last 24 hr 05/20/22 05:08: PT 28.3 H, INR 2.7 05/20/22 05:08: Sodium 140, Potassium 3.3 L, Chloride 103, Carbon Dioxide 30.0, Anion Gap 7, BUN 21 H, Creatinine 1.78 H, Estim Creat Clear Calc 48.18, Est GFR (MDRD) Af Amer 51 L, Est GFR (MDRD) Non-Af 42 L, BUN/Creatinine Ratio 11.8, Glucose 170 H, Calcium 8.8 Micro: Microbiology 05/18/22 20:05 Mucosa - Nasopharyngeal Respiratory Panel (PCR) - Final Assessment & Plan Assessment/Plan (1) CHF (congestive heart failure): QUALIFIERS: Heart failure chronicity: acute PLAN: Acute exacerbation of chronic congestive heart failure/heart failure with reduced ejection fraction -Reports he is up 15 pounds in 1 week -Troponin 73, BNP 343 with chest x-ray with left perihilar and right lower lobe reticular nodular interstitial thickening from inflammatory or early interstitial pulmonary edema -We will give 40 of IV Lasix twice daily -Daily weights -I's and O's -Fluid restriction -Had echo 04/14/2022 which demonstrated moderate concentric left ventricular hypertrophy, EF of 40%, mild to moderate global hypokinesis of the left ventricle, given echo roughly 1 month ago did not order repeat Continue carvedilol and losartan Resume Bumex 2 mg twice daily Patient states that he has been compliant with the Bumex. Patient instructed adriana himself daily and keep a record. Also advised patient to and taking no more than 1.5 L of fluid per day. PLAN: Plan Chronic conditions: * Atrial fibrillation-INR therapeutic at 2.8-EKG demonstrated atrial fibrillation with a rate of 91-Is chronically on Coumadin, will check daily INRs-Continue carvedilol-Coumadin dosing listed on home med list, 7 mg daily, continue * NIMCO-We will place on BiPAP at bedtime * Renal cell carcinoma status post unilateral nephrectomy in March and CKD stage IIIb-No present VIMAL, monitor daily-Is to change oncologist and follow-up with Dr. Botello-Cabozantinib continued-Home losartan continued DVT ppx: Coumadin therapeutic Discharge home 05/20/22 0932 <Electronically signed by Jesús Che DO> Cosigner Signature (if applicable): CC: ~ Signed [facility] Work Phone: [phone]) 509-998203-14-[address] Che [facility] May 19, 2022 1:50pm Note Date/Time May 19, 2022 8:1 1am [facility] Medical Records Department [address] [place] [address] Progress Note - Hospitalist 05/19/22 0808 MR#: [id number] Acct: [id number] Name: YEFRI YANEZ Rep #[id number] : 1965 57 From: Jesús Che DO PCP: Dr. Jose Ramon Turner MD Status: ADM IN Location: [place] [address] Reason for Visit Reason for Visit: Diagnoses Essential (primary) hypertension (05/18/22) Heart failure, unspecified (05/18/22) Subjective Subjective Breathing better. Had been on Bumex and was taking it, but still put on 15#. Also having issue getting aerosols as they were on backorder. Objective Data Objective Data Vital Signs: Vital Signs Temp Pulse Resp BP Pulse Ox O2 Del Method FiO2 36.8 C 86 24 H 111/87 H 99 Bi-pap 30 05/19/22 03:47 05/19/22 04:51 05/19/22 04:51 05/19/22 03:47 05/19/22 04:51 05/19/22 03:47 05/19/22 04:51 Oxygen Delivery Method Bi-pap Weight: 124.1 kg Body Mass Index (BMI) 38.1 Intake & Output: Intake and Output for Last 24 Hours 05/17/22 05/18/22 05/19/22 23:59 23:59 23:59 Intake Total 240 / 240 Output Total 850 / 850 Balance -610 / -610 Lab / Micro Data Result Diagrams: 05/19/22 05:43 05/19/22 05:43 Labs: Laboratory Results - last 24 hr 05/18/22 15:50: WBC 6.6, RBC 4.33 L, Hgb 14.6, Hct 44.2, MCV 102.1 H, MCH 33.7 H, MCHC 33.0, RDW Std Deviation 74.1 H, RDW Coeff of Lizzie 19.4 H, Plt Count 183, MPV 10.3, Immature Gran % (Auto) 0.300, Neut % (Auto) 80.8 H, Lymph % (Auto) 13.3 L, Barrow % (Auto) 4.9, Eos % (Auto) 0.2, Baso % (Auto) 0.5, Absolute Neuts (auto) 5.3, Absolute Lymphs (auto) 0.87, Nucleated RBC % 0.6, Platelet Estimate SLT DEC, Anisocytosis 2+, Ovalocytes 1+ 05/18/22 15:50: PT 28.9 H, INR 2.8 05/18/22 15:50: Sodium 143, Potassium 3.8, Chloride 105, Carbon Dioxide 31.0, Anion Gap 7, BUN 18, Creatinine 1.57 H, Estim Creat Clear Calc 54.62, Est GFR (MDRD) Af Amer 59 L, Est GFR (MDRD) Non-Af 48 L, BUN/Creatinine Ratio 11.5, Glucose 124 H, Calcium 9.2, Troponin I High Sens 73 05/18/22 15:50: B-Natriuretic Peptide 343.5 H 05/18/22 20:05: COVID-19 (SANDOVAL) Not Detected 05/19/22 05:43: WBC 6.2, RBC 3.95 L, Hgb 13.5, Hct 41.1, MCV 104.1 H, MCH 34.2 H, MCHC 32.8, RDW Std Deviation 74.2 H, RDW Coeff of Lizzie 19.1 H, Plt Count 173, MPV 10.0, Immature Gran % (Auto) 0.300, Neut % (Auto) 80.2 H, Lymph % (Auto) 14.8 L, Barrow % (Auto) 4.0, Eos % (Auto) 0.5, Baso % (Auto) 0.2, Absolute Neuts (auto) 5.0, Absolute Lymphs (auto) 0.92, Nucleated RBC % 0.6, Differential Comment SCANNED, Polychromasia RARE, Anisocytosis 2+, Macrocytosis 1+, Ovalocytes RARE 05/19/22 05:43: PT 31.6 H, INR 3.1 05/19/22 05:43: Sodium 143, Potassium 3.4 L, Chloride 106, Carbon Dioxide 29.0, Anion Gap 8, BUN 18, Creatinine 1.59 H, Estim Creat Clear Calc 53.94, Est GFR (MDRD) Af Amer 58 L, Est GFR (MDRD) Non-Af 48 L, BUN/Creatinine Ratio 11.3, Glucose 149 H, Calcium 8.5, Magnesium 2.1, Total Bilirubin 0.70, AST 38 H, ALT 61, Alkaline Phosphatase 64, Total Protein 6.4, Albumin 3.0 L, Globulin 3.4, Albumin/Globulin Ratio 0.9, TSH 1.31 Micro: Microbiology 05/18/22 20:05 Mucosa - Nasopharyngeal Respiratory Panel (PCR) - Final Radiography Diagnostic Testing: Radiology Impression Chest X-Ray 05/18/22 16:12 IMPRESSION: Left perihilar and right lower lobe reticular nodule interstitial thickening from inflammatory or early interstitial pulmonary edema. Electronically Signed: Malachi Stephens MD at 16:45 EDT Reading Location ID and State: [facility] / [place] , Service support , Physical Exam Const alert and no apparent distress Constitutional Narrative: on room air. no respiratory distress. no conversational dyspnea. Resp normal respiratory effort, no retractions, no use of accessory muscles and clearto auscultation bilaterally Cardio regular rate, regular rhythm, S1 normal heart sound and S2 normal heart sound GI normal to inspection, nondistended, normoactive bowel sounds and soft to palpation Assessment & Plan Assessment/Plan (1) CHF (congestive heart failure): QUALIFIERS: Heart failure chronicity: acute PLAN: Acute exacerbation of chronic congestive heart failure/heart failure with reduced ejection fraction -Reports he is up 15 pounds in 1 week -Troponin 73, BNP 343 with chest x-ray with left perihilar and right lower lobe reticular nodular interstitial thickening from inflammatory or early interstitial pulmonary edema -We will give 40 of IV Lasix twice daily -Daily weights -I's and O's -Fluid restriction -Had echo 04/14/2022 which demonstrated moderate concentric left ventricular hypertrophy, EF of 40%, mild to moderate global hypokinesis of the left ventricle, given echo roughly 1 month ago did not order repeat Continue carvedilol and losartan PLAN: Plan Chronic conditions: * Atrial fibrillation-INR therapeutic at 2.8-EKG demonstrated atrial fibrillati on with a rate of 91-Is chronically on Coumadin, will check daily INRs- Continue carvedilol-Coumadin dosing listed on home med list, 7 mg daily, continue * NIMCO-We will place on BiPAP at bedtime * Renal cell carcinoma status post unilateral nephrectomy in March and CKD stage IIIb-No present VIMAL, monitor daily-Is to change oncologist and follow-up with Dr. Botello-Cabozantinib continued-Home losartan continued DVT ppx: Coumadin therapeutic Charges/Coding Visit Charges Inpatient E&M: 91654 Subs Hosp L2 05/19/22 1350 <Electronically signed by Jesús Che DO> Cosigner Signature (if applicable): CC: ~ Signed [facility] Work Phone: 1(118) 836-495603-13-[address] Banda [facility] May 18, 2022 8:58pm Note Date/Time May 18, 2022 4:1 8pm [facility] Medical Records Department [address] [place] [address] Emergency Department Summary 05/18/22 MR#: [id number] Acct: [id number] Name: YEFRI YANEZ Rep #[id number] : 1965 57 From: Kassy Banda MD PCP: Dr. Jose Ramon Turner MD Status: ADM IN Location: [address] History of Present Illness Chief Complaint: Shortness of Breath Informant: patient Onset/Context/Timing Onset: Weeks Context: Gradual Onset Narrative Narrative: Patient presents after increasing shortness of breath over the past week with a 15 pound weight gain. He has a history of A-fib and CHF. He has mild cough butno fever. He states he was hospitalized about a month ago secondary to congestive heart failure. There was some confusion about which diuretic use wasto be taking at discharge. PFSH PFSH Medical History Atrial fibrillation Cancer Chest pain Congestive heart failure (CHF) COPD (chronic obstructive pulmonary disease) CPAP (continuous positive airway pressure) dependence Elevated serum creatinine Elevated troponin I level GERD (gastroesophageal reflux disease) Hypertension Irregular heart beat Sleep apnea Smoker Home Medications albuterol 90 mcg/actuation aerosol inhaler 90 mcg inhalation Q4H PRN PRN breathing 12/07/21 [History Last Taken Unknown] cabozantinib 20 mg tablet 20 mg PO DAILY 12/07/21 [History Last Taken Unknown] carvedilol 6.25 mg tablet 12.5 mg PO DAILY 12/07/21 [History Last Taken Unknown] cyclobenzaprine 10 mg tablet 10 mg PO TID PRN Spasms 12/07/21 [History Last Taken Unknown] ferrous sulfate 325 mg (65 mg iron) tablet 325 mg PO BID 12/07/21 [History Last Taken Unknown] pantoprazole 40 mg tablet,delayed release 40 mg PO DAILY PRN gerd 12/07/21 [History Last Taken Unknown] rosuvastatin 40 mg tablet 40 mg PO DAILY 12/07/21 [History Last Taken Unknown] warfarin 10 mg tablet 7 mg PO DAILY Check with primary doctor 12/07/21 [History Last Taken Unknown] losartan 50 mg tablet 50 mg PO DAILY #60 tabs 12/09/21 [Rx Last Taken Unknown] bumetanide 2 mg tablet 2 mg PO BIDLX #60 tabs 04/16/22 [Rx Last Taken Unknown] Allergy/AdvReac Type Severity Reaction Status Date / Time aspirin [ASA] Allergy Other Verified 05/18/22 15:01 mushroom [mushrooms] Allergy Hives Verified 05/18/22 15:01 Penicillins Allergy PT UNSURE Verified 05/18/22 15:01 OF REACTION shellfish derived Allergy Hives Verified 05/18/22 15:01 Family History Other Cancer Heart disease Surgical History History of nephrectomy, right Social History Smoking Status: Light Smoker (<10/day) ROS ROS ED Constitutional Constitutional ED: Denies chills or fever(s) Eyes Eyes: Denies change in vision or discharge from eye(s) ENT ENT ED: Denies discharge from eye(s), rhinorrhea or sore throat Cardiovascular Cardiovascular: Denies chest pain or palpitations Respiratory/Chest Respiratory/Chest: Reports cough and dyspnea Gastrointestinal Gastrointestinal: Denies abdominal pain, diarrhea, nausea or vomiting Genitourinary Genitourinary ED: Denies dysuria Musculoskeletal Musculoskeletal: Denies back pain or extremity pain Integumentary Denies Abrasions or rash Neurologic Neurologic: Reports headache(s); Denies weakness Psychiatric Psychiatric: Denies anxiety or depression Allergic/Immunologic Allergic/Immunologic ED: Denies lip swelling or urticaria EXAM Physical Exam Const Vital Signs: 05/18/22 14:59 05/18/22 15:35 05/18/22 15:48 Temperature 98 F Temperature Source Temporal Pulse Rate 91 91 Respiratory Rate 16 18 Respiratory Effort Short of Breath Respiratory Depth Normal Respiratory Pattern Tachypnea Blood Pressure 141/113 H 134/108 H Blood Pressure Mean 122 116 Pulse Ox 98 97 Oxygen Delivery Method Room Air Room Air Nasal Cannula Positive well nourished and well developed General Appearance ED: well developed HEENT Reports normocephalic and head/scalp atraumatic Eyes PERRL and EOMs intact bilaterally Neck supple Chest Wall inspection of chest normal and palpation of chest normal Resp normal respiratory effort Resp Narrative: Diminished breath sounds bilateral bases. Cardio Rhythm: abnormal rhythm irregularly irregular GI normal to inspection, nondistended, normoactive bowel sounds Palpation: soft Extremity normal to inspection Neuro oriented x3 and no sensory deficits noted Sensorium / Orientation: alert Motor Exam: strength 5/5 throughout Psych mental status grossly normal Skin no rashes or lesions noted MDM MDM MDM Narrative Medical decision making narrative: Patient placed on teletypesetter monitor to evaluate for arrhythmia. Chest x-ray obtained to evaluate for fluid overload, cardiac silhouette size, acute lung pathology. Lab work obtained to evaluate for leukocytosis, anemia, electrolyte derangement. INR obtained given he is on Coumadin. Troponin and BNP obtained to evaluate for cardiac ischemia and congestive heart failure respectively. History & Record Review Discussion w/independent historian: Patient Additional record(s) reviewed:: Prior inpatient record Lab Data Attestation: I reviewed the patient's lab results. Labs: Laboratory Results - last 24 hr 05/18/22 05/18/22 05/18/22 15:50 15:50 15:50 WBC 6.6 RBC 4.33 L Hgb 14.6 Hct 44.2 MCV 102.1 H MCH 33.7 H MCHC 33.0 RDW Std Deviation 74.1 H RDW Coeff of Lizzie 19.4 H Plt Count 183 MPV 10.3 Immature Gran % (Auto) 0.300 Neut % (Auto) 80.8 H Lymph % (Auto) 13.3 L Barrow % (Auto) 4.9 Eos % (Auto) 0.2 Baso % (Auto) 0.5 Absolute Neuts (auto) 5.3 Absolute Lymphs (auto) 0.87 Nucleated RBC % 0.6 PT 28.9 H INR 2.8 Sodium 143 Potassium 3.8 Chloride 105 Carbon Dioxide 31.0 Anion Gap 7 BUN 18 Creatinine 1.57 H Estim Creat Clear Calc 54.62 Est GFR (MDRD) Af Amer 59 L Est GFR (MDRD) Non-Af 48 L BUN/Creatinine Ratio 11.5 Glucose 124 H Calcium 9.2 Troponin I High Sens 73 B-Natriuretic Peptide 05/18/22 15:50 WBC RBC Hgb Hct MCV MCH MCHC RDW Std Deviation RDW Coeff of Lizzie Plt Count MPV Immature Gran % (Auto) Neut % (Auto) Lymph % (Auto) Barrow % (Auto) Eos % (Auto) Baso % (Auto) Absolute Neuts (auto) Absolute Lymphs (auto) Nucleated RBC % PT INR Sodium Potassium Chloride Carbon Dioxide Anion Gap BUN Creatinine Estim Creat Clear Calc Est GFR (MDRD) Af Amer Est GFR (MDRD) Non-Af BUN/Creatinine Ratio Glucose Calcium Troponin I High Sens B-Natriuretic Peptide 343.5 H Radiography Chest X-Ray - ED: 1 View, Read by ED Physician and Chronic Changes (Chronic changes with mild increased lung markings.) Diagnostic Testing: Clinical Impression(s) from Imaging Studies Chest X-Ray 05/18/22 16:12 IMPRESSION: Left perihilar and right lower lobe reticular nodule interstitial thickening from inflammatory or early interstitial pulmonary edema. Electronically Signed: Malachi Stephens MD at 16:45 EDT , EKG Initial EKG: Attestation: I personally reviewed and interpreted this EKG as follows: Interpretation: Atrial Fibrillation (A-fib at 91 with no acute ischemia.) Differential Diagnosis Chest pain/SOB: ACS ACS: Positive for EKG without ischemia and history not suggestive of ischemia pain and pneumothorax Reason(s) pneumothorax less likely: Positive for bilateral breath sounds and [employer] withhout PTX Management Discussion w/another healthcare provider: Hospitalist Treatment and Re-Evaluation :: CBC was normal white count at 6.6. Chemistry studies significant for creatinine 1.57. This appears consistent with his baseline. His INR is therapeutic at 2.8. Troponin is 73 which is actually improved when compared to his prior values. I did review his recent hospitalization with elevated troponins and stress test. BNP is elevated at 343. Chest x-ray is consistent with mild fluid overload with increased lung markings. Patient does have significant conversational dyspnea. I will give him 40 mg of IV Lasix and discussed with hospitalist for admission. Discharge Plan Triage Chief Complaint: Shortness of Breath ED Provider: Kassy Banda Dx/Rx/DC Orders Clinical Impression: Dyspnea, CHF (congestive heart failure) Prescriptions: No Action cyclobenzaprine 10 mg Tablet 10 mg PO TID PRN (Reason: Spasms) carvedilol 6.25 mg tablet 12.5 mg PO DAILY pantoprazole 40 mg Tablet,Delayed Release (Dr/Ec) 40 mg PO DAILY PRN (Reason: gerd) ferrous sulfate 325 mg (65 mg iron) Tablet 325 mg PO BID albuterol 90 mcg/actuation Aerosol 90 mcg INHALATION Q4H PRN PRN (Reason: breathing) rosuvastatin 40 mg Tablet 40 mg PO DAILY cabozantinib 20 mg Tablet 20 mg PO DAILY warfarin 10 mg Tablet 7 mg PO DAILY losartan 50 mg tablet 50 mg PO DAILY Qty: 60 0RF bumetanide 2 mg Tablet 2 mg PO BIDLX Qty: 60 1RF Primary Care Provider: Jose Ramon Turner Referrals: Jose Ramon Turner MD [Primary Care Provider] - Disposition Disposition: Acute Care Hospital [facility] What to do if you have Problems For any increased pain, shortness of breath, bleeding, nausea or vomiting, chestpain, or any unexpected problems, contact your Primary Care Provider. Call [facility] ([phone]) or report to the closest Emergency Room. Call 911 if necessary. 05/18/222057 <Electronically signed by Kassy Banda MD> Cosigner Signature (if applicable): CC: Dr. Jose Ramon Turner MD ~ Signed [facility] Work Phone: 1(105) 274-807003-13-2023 History and physical note Author Dr. Dukes [facility] May 18, 2022 7:34pm Note Date/Time May 18, 2022 6:[address] [facility] Medical Records Department [address] [place] [address] H&P Exam - Hospitalist 05/18/22 1823 MR#: [id number] Acct: [id number] Name: YEFRI YANEZ Rep #:[id number] : 1965 57 From: Alicia Dukes MD PCP: Dr. Jose Ramon Turner MD Status: ADM IN Location: [place] [address] HPI - General General Date of Admission: 05/18/22 Date of Service: 05/18/22 Chief Complaint: SOB, weight gain HPI Narrative YEFRI YANEZ, is a 57 M with a history of congestive heart failure, hypertension, NIMCO, renal cancer status post unilateral nephrectomy in March, A-fib on Coumadin presented to [facility] 05/18/2022 with increasing weight and shortness of breath. In the ED had a hemoglobin of 14.6, white blood cell count of 6.6, platelets 183, INR 2.8, BUN 18 with creatinine of1.57 which is lower than recent draws INR of 2.8 chronically on Coumadin,, troponin 73, BNP 343 and chest x-ray suggestive of possible early interstitial edema. He was given 40 of IV Lasix and hospitalist consulted for admission for acute exacerbation of heart failure. Patient seen at bedside and reports increasing shortness of breath for the past 1 week and a dry cough but has had significant worsening over the past 1 to 2 days. There is confusion over compliance with his water pills in the past 24 to 48 hours with inconsistent story. Denies peripheral edema but reports worsening shortness of breath at rest and on exertion. Additionally reports last week he weighed 250 pounds which is his baseline and now he is 270 pounds. Denies any chest pain, does have occasional headaches but reports compliance with the CPAP. Did not endorseother complaints today. PFSH Medical History Atrial fibrillation Cancer Chest pain Congestive heart failure (CHF) COPD (chronic obstructive pulmonary disease) CPAP (continuous positive airway pressure) dependence Elevated serum creatinine Elevated troponin I level GERD (gastroesophageal reflux disease) Hypertension Irregular heart beat Sleep apnea Smoker Home Medications albuterol 90 mcg/actuation aerosol inhaler 90 mcg inhalation Q4H PRN PRN breathing 12/07/21 [History Last Taken Unknown] cabozantinib 20 mg tablet 20 mg PO DAILY 12/07/21 [History Last Taken Unknown] carvedilol 6.25 mg tablet 12.5 mg PO DAILY 12/07/21 [History Last Taken Unknown] cyclobenzaprine 10 mg tablet 10 mg PO TID PRN Spasms 12/07/21 [History Last Taken Unknown] ferrous sulfate 325 mg (65 mg iron) tablet 325 mg PO BID 12/07/21 [History Last Taken Unknown] pantoprazole 40 mg tablet,delayed release 40 mg PO DAILY PRN gerd 12/07/21 [History Last Taken Unknown] rosuvastatin 40 mg tablet 40 mg PO DAILY 12/07/21 [History Last Taken Unknown] warfarin 10 mg tablet 7 mg PO DAILY Check with primary doctor 12/07/21 [History Last Taken Unknown] losartan 50 mg tablet 50 mg PO DAILY #60 tabs 12/09/21 [Rx Last Taken Unknown] bumetanide 2 mg tablet 2 mg PO BIDLX #60 tabs 04/16/22 [Rx Last Taken Unknown] Allergy/AdvReac Type Severity Reaction Status Date / Time aspirin [ASA] Allergy Other Verified 05/18/22 15:01 mushroom [mushrooms] Allergy Hives Verified 05/18/22 15:01 Penicillins Allergy PT UNSURE Verified 05/18/22 15:01 OF REACTION shellfish derived Allergy Hives Verified 05/18/22 15:01 Family History Other Cancer Heart disease Surgical History History of nephrectomy, right Social History Smoking Status: Light Smoker (<10/day) ROS ROS Narrative General: Denies fever or chills, has been gaining weight HENT: Does get headaches at times, denies stuffy nose, denies sore throat EYES: Denies changes in vision Resp: Dry cough, increasing shortness of breath Cardiac: Denies chest pain GI: Denies abdominal pain, denies changes in bowel, denies nausea, denies vomiting : Denies changes in urination Extremity: Denies swelling MSK: Denies weakness Neuro: Denies any numbness, denies tingling Heme: Denies any bleeding or bruising Skin: Denies rashes Psychiatric: No complaints voiced Vital Signs Vital Signs Vital Signs: 05/18/22 14:59 05/18/22 15:35 05/18/22 15:48 Temperature 98 F Temperature Source Temporal Pulse Rate 91 91 Respiratory Rate 16 18 Respiratory Effort Short of Breath Respiratory Depth Normal Respiratory Pattern Tachypnea Blood Pressure 141/113 H 134/108 H Blood Pressure Mean 122 116 Pulse Ox 98 97 Oxygen Delivery Method Room Air Room Air Nasal Cannula 05/18/22 17:15 Temperature Temperature Source Pulse Rate 94 Respiratory Rate 32 H Respiratory Effort Respiratory Depth Respiratory Pattern Blood Pressure Blood Pressure Mean Pulse Ox 91 Oxygen Delivery Method Room Air Weight Weight: 125.673 kg Body Mass Index (BMI) 38.6 Physical Exam Narrative General: Alert, oriented, no apparent distress HEENT: Atraumatic, normocephalic Eyes: Anicteric, normal conjunctiva, extraocular movements grossly intact Neck: Supple Respiratory: Increased respiratory effort, diminished at the bases Cardiovascular: Regular rate and rhythm GI: Soft, nontender, nondistended Extremities: No pitting edema Musculoskeletal: Moving all extremities Neuro: No overt focal neurological deficits Skin: No rashes appreciated Psych: Cooperative Results Lab / Micro Data Result Diagrams: 05/18/22 15:50 05/18/22 15:50 Labs: Laboratory Results - last 24 hr 05/18/22 15:50: WBC 6.6, RBC 4.33 L, Hgb 14.6, Hct 44.2, MCV 102.1 H, MCH 33.7 H, MCHC 33.0, RDW Std Deviation 74.1 H, RDW Coeff of Lizzie 19.4 H, Plt Count 183, MPV 10.3, Immature Gran % (Auto) 0.300, Neut % (Auto) 80.8 H, Lymph % (Auto) 13.3 L, Barrow % (Auto) 4.9, Eos % (Auto) 0.2, Baso % (Auto) 0.5, Absolute Neuts (auto) 5.3, Absolute Lymphs (auto) 0.87, Nucleated RBC % 0.6, Platelet Estimate SLT DEC, Anisocytosis 2+, Ovalocytes 1+ 05/18/22 15:50: PT 28.9 H, INR 2.8 05/18/22 15:50: Sodium 143, Potassium 3.8, Chloride 105, Carbon Dioxide 31.0, Anion Gap 7, BUN 18, Creatinine 1.57 H, Estim Creat Clear Calc 54.62, Est GFR (MDRD) Af Amer 59 L, Est GFR (MDRD) Non-Af 48 L, BUN/Creatinine Ratio 11.5, Glucose 124 H, Calcium 9.2, Troponin I High Sens 73 05/18/22 15:50: B-Natriuretic Peptide 343.5 H Radiology Impression Chest X-Ray 05/18/22 16:12 IMPRESSION: Left perihilar and right lower lobe reticular nodule interstitial thickening from inflammatory or early interstitial pulmonary edema. Electronically Signed: Malachi Stephens MD at 16:45 EDT Reading Location ID and State: [facility] / [place] , Service support , Assessment & Plan Assessment/Plan (1) CHF (congestive heart failure): (2) Hypertension: PLAN: Plan #Acute exacerbation of chronic congestive heart failure/heart failure with reduced ejection fraction -Reports he is up 30 pounds in 1 week -Troponin 73, BNP 343 with chest x-ray with left perihilar and right lower lobe reticular nodular interstitial thickening from inflammatory or early interstitial pulmonary edema -History and exam consistent with heart failure exacerbation possibly in part due to confusion with his diuretic doses -We will give 40 of IV Lasix twice daily -Daily weights -I's and O's -Fluid restriction -Had echo 04/14/2022 which demonstrated moderate concentric left ventricular hypertrophy, EF of 40%, mild to moderate global hypokinesis of the left ventricle, given echo roughly 1 month ago did not order repeat -Has had some dry cough as well, will send COVID and flu #Atrial fibrillation -INR therapeutic at 2.8 -EKG demonstrated atrial fibrillation with a rate of 91 -Is chronically on Coumadin, will check daily INRs -Continue carvedilol -Coumadin dosing listed on home med list, 7 mg daily, continue #NIMCO -We will place on BiPAP at bedtime #Renal cell carcinoma status post unilateral nephrectomy in March and CKD stage IIIb -No present VIMAL, monitor daily -Is to change oncologist and follow-up with Dr. Botello -Cabozantinib continued -Home losartan continued #DVT ppx: Coumadin therapeutic Alicia Dukes MD Time spent in the patient's overall evaluation,decision-making process, review of diagnostic data, adjustment of management, discussion with other providers, nursing nursing and ancillary staff involved in patient's care documentation, 60 minutes Charges/Coding Visit Charges Inpatient E&M: 53548 Init Hosp L2 05/18/221933 <Electronically signed by Alicia Dukes MD> Cosigner Signature (if applicable): CC: Dr. Jose Ramon Turner MD; Dr. Alicia Dukes MD~ Signed [facility] Work Phone: 1(984) 599-600402-08-[address] Chiu [facility] April 15, 2022 4:54pm Note Date/Time April 15, 2022 4 :54pm [facility] Medical Records Department [address] [place] [address] Progress Note - Hospitalist 04/15/22 1647 MR#: [id number] Acct: [id number] Name: YEFRI YANEZ Rep #:[id number] : 1965 57 From: Carol Chiu DO PCP: Dr. Jose Ramon Turner MD Status: ADM IN Location: [place] [id number] Reason for Visit Reason for Visit: Diagnoses Acute systolic (congestive) heart failure (04/13/22) Heart failure, unspecified (04/13/22) Hypoxemia (04/13/22) Other specified abnormalities of plasma proteins (04/13/22) Other specified abnormal findings of blood chemistry (04/13/22) Subjective Subjective Patient reports subjectively he is feeling better overall. He unfortunately atethis morning and was to be n.p.o. per orders therefore his stress test cannot beperformed today and will have to be tomorrow morning. We did do an ambulatory pulse ox on him and he will require oxygen as of now at discharge as he desattedwith exertion to 86% on room air. It appears that he will require room air at rest and 2 L of oxygen with exertion. I did discuss with him if his stress testis unremarkable tomorrow we may be able to get him discharged home. He seemed pleased about this. Objective Data Objective Data Vital Signs: Vital Signs Temp Pulse Resp BP Pulse Ox O2 Del Method O2 Flow Rate 97.7 F L 93 18 122/88 H 99 Room Air 2 04/15/22 15:00 04/15/22 15:00 04/15/22 15:00 04/15/22 15:00 04/15/22 15:00 04/15/22 15:09 04/15/22 15:09 FiO2 35 04/15/22 04:10 Oxygen Flow Rate (L/min) [ 2 AMBULATING with Oxygen #1] Oxygen Flow Rate (L/min) 2 Oxygen Delivery Method Room Air Weight: 121.8 kg Body Mass Index (BMI) 38.5 Intake & Output: Intake and Output for Last 24 Hours 04/13/22 04/14/22 04/15/22 23:59 23:59 23:59 Intake Total 745 / 745 480 / 480 Output Total 1505 / 1505 Balance -760 / -760 480 / 480 Lab / Micro Data Result Diagrams: 04/15/22 06:21 04/15/22 06:21 Labs: Laboratory Results - last 24 hr 04/15/22 06:21: PT 23.1 H, INR 2.1 04/15/22 06:21: WBC 5.1, RBC 3.92 L, Hgb 12.6 L, Hct 38.5 L, MCV 98.2 H, MCH 32.1 H, MCHC 32.7, RDW Std Deviation 73.5 H, RDW Coeff of Lizzie 20.7 H, Plt Count 212, MPV 11.1, Immature Gran % (Auto) 1.000 H, Neut % (Auto) 74.5 H, Lymph % (Auto) 15.1 L, Barrow % (Auto) 8.4, Eos % (Auto) 0.4, Baso % (Auto) 0.6, Absolute Neuts (auto) 3.8, Absolute Lymphs (auto) 0.77 L, Nucleated RBC % 5.7 H, Anisocytosis 2+, Macrocytosis 1+ 04/15/22 06:21: Sodium 140, Potassium 4.1, Chloride 107, Carbon Dioxide 27.0, Anion Gap 6, BUN 28 H, Creatinine 1.72 H, Estim Creat Clear Calc 48.34, Est GFR (MDRD) Af Amer 53 L, Est GFR (MDRD) Non-Af 44 L, BUN/Creatinine Ratio 16.3, Glucose 114 H, Calcium 9.2, Phosphorus 3.9, Magnesium 2.1, Triglycerides 159, Cholesterol 190, LDL Cholesterol 119, VLDL Cholesterol 32, HDL Cholesterol 39 L Physical Exam Const alert, oriented x3, no apparent distress and well nourished Constitutional Narrative: Obese, -Lithuanian, male lying in bed on supplemental oxygen at 2 L, watching television, appears comfortable, nontoxic HEENT head/scalp atraumatic and moist oral mucous membranes HEENT Narrative: Mallampati 3, no thrush Resp normal respiratory effort, no retractions, no use of accessory muscles and clearto auscultation bilaterally Resp Narrative: Crackles have resolved, diffusely diminished, tachypnea has resolved Auscultation: rales; Negative for rhonchi or wheezes Cardio regular rate, regular rhythm, S1 normal heart sound, S2 normal heart sound, no murmurs, no rub, no gallops and no clicks GI normal to inspection, nondistended, normoactive bowel sounds, soft to palpation and non-tender Extremity no clubbing, cyanosis or edema Neuro oriented x3, moves all extremities and no focal motor deficits Speech: speech normal Psych affect normal Psych Narrative: Very pleasant, appropriately interactive Assessment & Plan Assessment/Plan (1) Acute exacerbation of CHF (congestive heart failure): (2) Systolic CHF, acute: (3) Hypoxemia: (4) Elevated serum creatinine: (5) Elevated troponin I level: PLAN: Plan Hypoxia secondary to acute exacerbation of HFrEF -We will repeat echo with elevated BNP and troponin elevation -These both may be related to his worsening renal function -Patient is typically on room air at home however requiring 2 L nasal cannula -It appears he will require 2 L of oxygen with exertion at discharge -Repeat echocardiogram done today showed an EF of 40% with mild to moderate global hypokinesis of the LV, moderate biatrial enlargement, mild aortic valve insufficiency -Continue IV diuresis but monitor renal function carefully--> kidney function has improved with diuresis so I SPECT he was off the Starling curve -Fluid restriction -Sodium restriction -Daily weights -Accurate I's and O's Troponin elevation -With shortness of breath being an issue in his history I will rule out ischemiawith a stress test to be done tomorrow -Stress test was to be done today however dietary gave the patient a meal despite n.p.o. status so will have to be deferred till tomorrow -Troponins have been [phone] -This elevation may be related to his worsening renal function -Go cardiogram shows no change from previous on 02/2022 at outside facility Serum creatinine elevation -Unclear if this is VIMAL or new CKD -Function is a little bit better today despite diuresis at 1.7 so I suspect he at least has some VIMAL and was off the Starling curve -Patient underwent a nephrectomy on February 06, 2022 -His renal function was normal prior to this but I have none except this admission since that point time -Patient did undergo radiation and is now on chemotherapy and his chemotherapy may be causing VIMAL -Continue to monitor closely especially with diuresis -We will avoid contrast -Avoid nephrotoxins Clear-cell carcinoma-metastatic to bone -Status post nephrectomy 02/06/2022--> Dr. Aravind Lopez at [facility] -Currently on chemotherapy -Patient has undergone radiation as well to his right kidney area -Recommend close outpatient follow-up after discharge Hypertension -Continue home carvedilol -Continue home losartan -Hold home torsemide with IV diuresis and likely restart at discharge--> may need a higher dose -Continue home Aldactone Atrial fibrillation -Continue beta-blockade -Continue Coumadin -Repeat a.m. INR -INR is 2.1 Hyperlipidemia -Continue home statin GERD -Continue home Protonix NIMCO -We will order CPAP for use here with naps and nocturnally Tobacco abuse -Recommend cessation -Make nicotine patch available if needed DVT prophylaxis -INR therapeutic Charges/Coding Visit Charges Inpatient E&M: 25260 Subs Hosp L2 04/15/22 3349 <Electronically signed by Carol Chiu DO> Cosigner Signature (if applicable): CC: ~ Signed [facility] Work Phone: 1(422) 898-812102-07-[address] Chiu [facility] April 14, 2022 6:11pm Note Date/Time April 14, 2022 7 :40am [facility] Medical Records Department [address] [facility] [place] [address] Progress Note - Hospitalist 04/14/22 0737 MR#: [id number] Acct: [id number] Name: YEFRI YANEZ Rep #:[id number] : 1965 57 From: Carol Chiu DO PCP: Dr. Jose Ramon Turner MD Status: ADM IN Location: ICU ICU09-1 Reason for Visit Reason for Visit: Diagnoses Heart failure, unspecified (04/13/22) Subjective Subjective Mr. Yanez is a 57-year-old male with a history of metastatic clear-cell carcinoma of the right kidney who is status post nephrectomy and radiation and now getting chemotherapy who presented to the emergency department with a 2-weekhistory of progressively worsening shortness of breath. He evidently went to his primary care physician's office where lab work was drawn and he had an elevated troponin so he was sent to the emergency department. Patient complained of chest tightness with coughing. He denied any weight changes or swelling. His nephrectomy was performed on February 06 by Aravind Lopez at [facility]. He does have metastatic disease to bone. He denied any feversor chills on presentation. He states that the cough he has been experiencing ischronic and that he also has dyspnea on exertion. His CBC was overall unremarkable on presentation other than a mild anemia with a hemoglobin of 12.8. His white count was normal however he did have a very mild left shift with a 79.4% neutrophilia he does have an elevated serum creatinine however with his previous nephrectomy I am not clear what his baseline is running. A BNP was obtained and found to be 699. His initial troponin was 118 and they were cycledwith follow-ups being 126 and then 121. He was admitted for acute exacerbation of CHF. He is on supplemental oxygen at 2 L however this appears to be baseline. Patient does state that his shortness of breath does seem to feel better overall. He has not gotten up and moved around yet. He is denying any chest pain at this time. He admits to history of sleep apnea and would like a mask ifpossible. I informed we would get one ordered for him. Objective Data Objective Data Vital Signs: Vital Signs Temp Pulse Resp BP Pulse Ox O2 Del Method O2 Flow Rate 97.6 F L 88 30 H 115/99 H 98 Nasal Cannula 2 04/14/22 05:18 04/14/22 05:18 04/14/22 05:18 04/14/22 05:18 04/14/22 05:18 04/14/22 05:18 04/14/22 05:18 Oxygen Flow Rate (L/min) 2 Oxygen Delivery Method Nasal Cannula Weight: 121.6 kg Body Mass Index (BMI) 38.5 Intake & Output: Intake and Output for Last 24 Hours 04/12/22 04/13/22 04/14/22 23:59 23:59 23:59 Intake Total 120 / 120 Output Total 330 / 330 Balance -210 / -210 Lab / Micro Data Result Diagrams: 04/14/22 03:18 04/14/22 03:18 Labs: Laboratory Results - last 24 hr 04/13/22 21:40: WBC 5.7, RBC 4.03 L, Hgb 12.8 L, Hct 38.2 L, MCV 94.8 H, MCH 31.8, MCHC 33.5, RDW Std Deviation 69.1 H, RDW Coeff of Lizzie 20.2 H, Plt Count 197, MPV 10.8, Immature Gran % (Auto) 0.400, Neut % (Auto) 79.4 H, Lymph % (Auto) 12.7 L, Barrow % (Auto) 7.1, Eos % (Auto) 0.0, Baso % (Auto) 0.4, Absolute Neuts (auto) 4.5, Absolute Lymphs (auto) 0.72 L, Nucleated RBC % 1.8, Differential Comment SCANNED 04/13/22 21:40: Sodium 143, Potassium 3.7, Chloride 111 H, Carbon Dioxide 25.0, Anion Gap 7, BUN 15, Creatinine 1.94 H, Estim Creat Clear Calc 44.21, Est GFR (MDRD) Af Amer 46 L, Est GFR (MDRD) Non-Af 38 L, BUN/Creatinine Ratio 7.7 L, Glucose 125 H, Calcium 9.0, Troponin I High Sens 126 H* 04/13/22 21:40: PT 22.5 H, INR 2.0 04/13/22 22:29: PT 21.7 H, INR 1.9 04/14/22 00:05: Troponin I High Sens 133 H* 04/14/22 03:18: Troponin I High Sens 121 H* 04/14/22 03:18: Sodium 142, Potassium 3.9, Chloride 108 H, Carbon Dioxide 24.0, Anion Gap 10, BUN 18, Creatinine 1.91 H, Estim Creat Clear Calc 43.53, Est GFR (MDRD) Af Amer 47 L, Est GFR (MDRD) Non-Af 39 L, BUN/Creatinine Ratio 9.4 L, Glucose 116 H, Calcium 9.0, Total Bilirubin 1.20 H, AST 37, ALT 46, Alkaline Phosphatase 75, Total Protein 6.5, Albumin 2.8 L, Globulin 3.7, Albumin/GlobulinRatio 0.8 L Radiography Diagnostic Testing: Radiology Impression Chest X-Ray 04/13/22 21:40 IMPRESSION: Right sixth rib based mass redemonstrated. Similar bilateral lower lung infiltrates. Electronically Signed: David Moreno MD at 21:56 EST , Physical Exam Const alert, oriented x3, no apparent distress and well nourished Constitutional Narrative: Obese, -Lithuanian, male sitting up in bed on supplemental oxygen at 2 L, watching television, appears comfortable, nontoxic HEENT head/scalp atraumatic and moist oral mucous membranes HEENT Narrative: Mallampati 3, no thrush Head and Scalp: normocephalic Resp no retractions and no use of accessory muscles Resp Narrative: Diffusely diminished with few scattered crackles at bases, mild tachypnea Auscultation: rales; Negative for rhonchi or wheezes Cardio regular rate, regular rhythm, S1 normal heart sound, S2 normal heart sound, no murmurs, no rub, no gallops and no clicks GI normal to inspection, nondistended, normoactive bowel sounds, soft to palpation,non-tender and non-distended Extremity no clubbing, cyanosis or edema Neuro oriented x3, moves all extremities and no focal motor deficits Speech: speech normal Psych affect normal Psych Narrative: Very pleasant, appropriately interactive Assessment & Plan Assessment/Plan (1) Acute exacerbation of CHF (congestive heart failure): (2) Systolic CHF, acute: (3) Hypoxemia: (4) Elevated serum creatinine: (5) Elevated troponin I level: PLAN: Plan Hypoxia secondary to acute exacerbation of HFrEF -We will repeat echo with elevated BNP and troponin elevation -These both may be related to his worsening renal function -Patient is typically on room air at home however requiring 2 L nasal cannula -Repeat echocardiogram done today showed an EF of 40% with mild to moderate global hypokinesis of the LV, moderate biatrial enlargement, mild aortic valve insufficiency -Continue IV diuresis but monitor renal function carefully -Fluid restriction -Sodium restriction -Daily weights -Accurate I's and O's Troponin elevation -With shortness of breath being an issue in his history I will rule out ischemiawith a stress test to be done tomorrow -Troponins have been [phone] -This elevation may be related to his worsening renal function -Go cardiogram shows no change from previous on 02/2022 at outside facility Serum creatinine elevation -Unclear if this is VIMAL or new CKD -Patient underwent a nephrectomy on February 06, 2022 -His renal function was normal prior to this but I have none except this admission since that point time -Patient did undergo radiation and is now on chemotherapy and his chemotherapy may be causing VIMAL -Continue to monitor closely especially with diuresis -We will avoid contrast -Avoid nephrotoxins Clear-cell carcinoma-metastatic to bone -Status post nephrectomy 02/06/2022--> Dr. Aravind Lopez at [facility] -Currently on chemotherapy -Patient has undergone radiation as well to his right kidney area -Recommend close outpatient follow-up after discharge Hypertension -Continue home carvedilol -Continue home losartan for now but will need to monitor closely with renal function -Hold home torsemide with IV diuresis -Continue home Aldactone Atrial fibrillation -Continue beta-blockade -Continue Coumadin -Check a.m. INR -INR on admission was 1.9 Hyperlipidemia -Continue home statin GERD -Continue home Protonix NIMCO -We will order CPAP for use here with naps and nocturnally Tobacco abuse -Recommend cessation -Make nicotine patch available if needed DVT prophylaxis -Patient is fully anticoagulated with Coumadin however INR subtherapeutic at 1.9 -Repeat in a.m. Charges/Coding Visit Charges Inpatient E&M: 10566 Subs Hosp L2 04/14/22 1811 <Electronically signed by Carol Chiu DO> Cosigner Signature (if applicable): CC: ~ Signed [facility] Work Phone: 1(443) 879-233002-07-2023 History and physical note Author Dr. Camacho [facility] April 14, 2022 12:43am Note Date/Time April 14, 2022 1 2:24am [facility] Medical Records Department [address] [place] [address] H&P Exam - Hospitalist 04/13/22 2334 MR#: [id number] Acct: [id number] Name: YEFRI YANEZ Rep #:[id number] : 1965 57 From: Dangelo Camacho MD PCP: Dr. 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 Patient went to his PCPs office where labs drawn showed elevated troponin so patient was sent to theemergency department. Of note the patient complains of chest tightness with coughing. He denies any change in weight. He denies any swelling. PFSH Medical History Atrial fibrillation Cancer Chest pain Congestive heart failure (CHF) CPAP (continuous positive airway pressure) dependence Hypertension Irregular heart beat Sleep apnea Smoker Home Medications albuterol 90 mcg/actuation aerosol inhaler 90 mcg inhalation Q4H PRN PRN breathing 12/07/21 [History Last Taken Unknown] cabozantinib 20 mg tablet 20 mg PO DAILY 12/07/21 [History Last Taken Unknown] carvedilol 6.25 mg tablet See Rx Instructions .Route .COMPLEX 12/07/21 [History Last Taken Unknown] cyclobenzaprine 10 mg tablet 10 mg PO TID PRN Spasms 12/07/21 [History Last Taken Unknown] ferrous sulfate 325 mg (65 mg iron) tablet 325 mg PO BID 12/07/21 [History Last Taken Unknown] pantoprazole 40 mg tablet,delayed release 40 mg PO DAILY 12/07/21 [History Last Taken Unknown] rosuvastatin 40 mg tablet 40 mg PO DAILY 12/07/21 [History Last Taken Unknown] spironolactone 25 mg tablet 12.5 mg PO DAILY 12/07/21 [History Last Taken Unknown] torsemide 40 mg tablet 40 mg PO DAILY 12/07/21 [History Last Taken Unknown] warfarin 10 mg tablet 7 mg PO DAILY Check with primary doctor 12/07/21 [History Last Taken Unknown] losartan 50 mg tablet 50 mg PO DAILY #60 tabs 12/09/21 [Rx Last Taken Unknown] Allergy/AdvReac Type Severity Reaction Status Date / Time aspirin [ASA] Allergy Other Verified 04/13/22 22:21 Penicillins Allergy PT UNSURE Verified 04/13/22 22:21 OF REACTION shellfish derived Allergy Hives Verified 04/13/22 22:21 Family History (Updated 04/14/22 @ 00:[address] Dangelo Camacho MD) Other Cancer Heart disease Surgical History (Updated 04/14/22 @ 00:[address] Dangelo Camacho MD) History of nephrectomy, right Social History Smoking Status: Current every day smoker tobacco type: cigars ROS ROS Narrative Pertinent positives and pertinent negatives as noted in HPI. All other systems were reviewed and are negative Vital Signs Vital Signs Vital Signs: 04/13/22 21:17 04/13/22 21:17 04/13/22 22:20 Temperature 96.0 F L 96.0 F L Temperature Source Temporal Temporal Pulse Rate 112 H 112 H Respiratory Rate 18 18 Respiratory Effort Respiratory Depth Respiratory Pattern Blood Pressure 145/105 H 145/105 H Blood Pressure Mean 118 118 Pulse Ox 98 98 96 Oxygen Delivery Method Room Air Room Air Room Air Oxygen Flow Rate (L/min) 04/13/22 22:20 04/13/22 22:22 04/13/22 22:42 Temperature Temperature Source Pulse Rate 112 H 76 Respiratory Rate 40 H Respiratory Effort Short of Breath Labored Accessory Muscle Use Respiratory Depth Shallow Respiratory Pattern Tachypnea Blood Pressure 119/80 Blood Pressure Mean 93 Pulse Ox 99 Oxygen Delivery Method Room Air Room Air Room Air Oxygen Flow Rate (L/min) 04/13/22 22:42 04/13/22 22:42 Temperature Temperature Source Pulse Rate 99 Respiratory Rate 35 H Respiratory Effort Respiratory Depth Respiratory Pattern Blood Pressure 109/82 H Blood Pressure Mean 91 Pulse Ox 94 98 Oxygen Delivery Method Nasal Cannula Nasal Cannula Oxygen Flow Rate (L/min) 2 2 Weight Weight: 116.573 kg Body Mass Index (BMI) 35.8 Physical Exam Narrative Physical exam: General: Well-nourished, well-developed. Head: Normocephalic, atraumatic, no tenderness Eyes: Vision is grossly intact. EOMI ENT, no trauma, moist mucous membranes, no rhinorrhea Neck: Nontender, No thyromegaly. CVS: Regular rate and rhythm. S1-S2 present. No murmur, gallop or rub. Respiratory : Conversational dyspnea. Tachypnea. Bibasilar Rales Abdomen: Soft, nontender, nondistended, normal bowel sounds, no masses : Deferred Back: Nontender, no CVA tenderness. Extremities: Nontender full range of motion, no trauma Skin: Normal color, no trauma, abrasions Neuro: Alert, oriented, cranial nerves II through XII grossly intact. Psychiatry: Normal mood. Normal affect. Not depressed. Not anxious. Results Lab / Micro Data Result Diagrams: 04/13/22 21:40 04/13/22 21:40 Labs: Laboratory Results - last 24 hr 04/13/22 21:40: WBC 5.7, RBC 4.03 L, Hgb 12.8 L, Hct 38.2 L, MCV 94.8 H, MCH 31.8, MCHC 33.5, RDW Std Deviation 69.1 H, RDW Coeff of Lizzie 20.2 H, Plt Count 197, MPV 10.8, Immature Gran % (Auto) 0.400, Neut % (Auto) 79.4 H, Lymph % (Auto) 12.7 L, Barrow % (Auto) 7.1, Eos % (Auto) 0.0, Baso % (Auto) 0.4, Absolute Neuts (auto) 4.5, Absolute Lymphs (auto) 0.72 L, Nucleated RBC % 1.8, Differential Comment SCANNED 04/13/22 21:40: Sodium 143, Potassium 3.7, Chloride 111 H, Carbon Dioxide 25.0, Anion Gap 7, BUN 15, Creatinine 1.94 H, Estim Creat Clear Calc 44.21, Est GFR (MDRD) Af Amer 46 L, Est GFR (MDRD) Non-Af 38 L, BUN/Creatinine Ratio 7.7 L, Glucose 125 H, Calcium 9.0, Troponin I High Sens 126 H* 04/13/22 22:29: PT 21.7 H, INR 1.9 Radiology Impression Chest X-Ray 04/13/22 21:40 IMPRESSION: Right sixth rib based mass redemonstrated. Similar bilateral lower lung infiltrates. Electronically Signed: David Moreno MD at 21:56 EST , Assessment & Plan Assessment/Plan (1) Acute exacerbation of CHF (congestive heart failure): PLAN: Plan Acute Exacerbation of heart failure with reduced ejection fraction Echocardiogram on 12/07/2021 was reviewed. Echocardiogram showed moderate concentric left ventricular hypertrophy. Estimated EF is 35%. Moderate global hypokinesis of the left ventricle. Left atrium was moderately enlarged. Right atrium was moderately enlarged. Echocardiogram on 02/26/2022 at outside hospital showed a cardiomyopathy. EF of 40 to +5%. Left ventricular dysfunction was not evaluated due to A-fib. Impression of chest x-ray by radiologist: Right sixth rib based mass redemonstrated. Similar bilateral lower lung infiltrates. Chest x-ray on presentation and previous chest x-ray was visualized and independently interpreted and I agree with radiologist BNP was 699 which is the highest on file so far. Placed on monitored bed on progressve care unit. Weight on admission to the floor; and then daily Strict I&O's On home torsemide 40 mg daily. Received Lasix 40 mg IV push in the emergency department. Lasix 40 mg IV push twice daily ordered. Supplement potassium. Home guideline directed medical therapy continued. Fluid restriction of 1500 mls daily 2 g cardiac diet Atrial fibrillation Patient with history of A-fib and on Coumadin. Ventricular rate on presentation was 100. Home carvedilol continued. Subtherapeutic INR INR of 1.9 on presentation. Escalate dose of home warfarin. Trend PT/INR. VIMAL on CKD stage II. Creatinine presentation was 1.94. Baseline creatinine is around 1.2. Likely secondary cardiorenal syndrome. IV Lasix as above. Trend BMP. Elevated troponin Initial troponin before hospitalization was 118. Troponin was trended to 126 and then to 133. Likely secondary to heart strain from CHF. DVT prophylaxis: Coumadin continued. SCDs ordered since INR is subtherapeutic. Charges/Coding Visit Charges Inpatient E&M: 68597 Init Hosp L3 04/14/22 0043 <Electronically signed by Dangelo Camacho MD> Cosigner Signature (if applicable): CC: Dr. Jose Ramon Turner MD; Dr. Dangelo Camacho MD~ Signed [facility] Work Phone: [phone]) 331-985702-07-[address] Dunn [facility] April 13, 2022 11:51pm Note Date/Time April 13, 2022 1 0:31pm [facility] Medical Records Department [address] [place] [address] Emergency Department Summary 04/13/22 MR#: [id number] Acct: [id number] Name: YEFRI YANEZ Rep #:[id number] : 1965 57 From: Kei Dunn DO PCP: Dr. Jose Ramon Turner MD Status: REG ER Location: ED HPI History of Present Illness Chief Complaint: Shortness of Breath Narrative Narrative: 57-year-old male with history of CHF, COPD, A-fib presenting with shortness of breath. Patient states has been this way for about 2 weeks with worsening over the last couple of days. Patient is status post nephrectomy on February [address] Aravind Lopez at [facility]. Patient reported that he is on a daily chemotherapy agent. He also has had 1 radiation to the right kidney. 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 He is on combo. Patient has metastatic disease to the ribs. Patient does not report a fever, chills. He does report acough. This is a chronic cough. Patient also reports that he has chest tightness when he coughs. He describes orthopnea which is not new as well. Dyspnea on exertion. Patient was seen by his primary care physician today. He did outpatient blood work and he was told that his troponin was elevated today. PFSH PFSH Medical History Atrial fibrillation Cancer Chest pain Congestive heart failure (CHF) CPAP (continuous positive airway pressure) dependence Hypertension Irregular heart beat Sleep apnea Smoker Home Medications albuterol 90 mcg/actuation aerosol inhaler 90 mcg inhalation Q4H PRN PRN breathing 12/07/21 [History Last Taken Unknown] cabozantinib 20 mg tablet 20 mg PO DAILY 12/07/21 [History Last Taken Unknown] carvedilol 6.25 mg tablet See Rx Instructions .Route .COMPLEX 12/07/21 [History Last Taken Unknown] cyclobenzaprine 10 mg tablet 10 mg PO TID PRN Spasms 12/07/21 [History Last Taken Unknown] ferrous sulfate 325 mg (65 mg iron) tablet 325 mg PO BID 12/07/21 [History Last Taken Unknown] ondansetron HCl 8 mg tablet 8 mg PO Q8H PRN Nausea 12/07/21 [History Last Taken Unknown] pantoprazole 40 mg tablet,delayed release 40 mg PO DAILY 12/07/21 [History Last Taken Unknown] rosuvastatin 40 mg tablet 40 mg PO DAILY 12/07/21 [History Last Taken Unknown] spironolactone 25 mg tablet 12.5 mg PO DAILY 12/07/21 [History Last Taken Unknown] torsemide 40 mg tablet 40 mg PO DAILY 12/07/21 [History Last Taken Unknown] warfarin 10 mg tablet 7 mg PO DAILY Check with primary doctor 12/07/21 [History Last Taken Unknown] losartan 50 mg tablet 50 mg PO DAILY #60 tabs 12/09/21 [Rx Last Taken Unknown] prednisone 20 mg tablet 20 mg PO BID #10 tabs 01/20/22 [Rx Last Taken Unknown] cefdinir 300 mg capsule 300 mg PO BID #14 caps 01/29/22 [Rx Last Taken Unknown] furosemide 40 mg tablet (Lasix) 40 mg PO DAILY #14 tabs 01/29/22 [Rx Last Taken Unknown] Allergy/AdvReac Type Severity Reaction Status Date / Time aspirin [ASA] Allergy Other Verified 04/13/22 22:21 Penicillins Allergy PT UNSURE Verified 04/13/22 22:21 OF REACTION shellfish derived Allergy Hives Verified 04/13/22 22:21 Social History Smoking Status: Current every day smoker tobacco type: cigars ROS ROS ED Constitutional Constitutional ED: Denies chills or fever(s) Eyes Eyes: Denies change in vision or diplopia ENT ENT ED: Denies rhinorrhea or sore throat Cardiovascular Cardiovascular: Reports chest pain, orthopnea and palpitations Respiratory/Chest Respiratory/Chest: Reports cough, dyspnea, dyspnea on exertion and orthopnea Gastrointestinal Gastrointestinal: Denies abdominal pain, nausea or vomiting Genitourinary Genitourinary ED: Denies dysuria or hematuria Musculoskeletal Musculoskeletal: Denies myalgias or neck pain Integumentary Denies abscess Neurologic Neurologic: Denies headache(s) or paresthesias Psychiatric Psychiatric: Denies anxiety or depression EXAM Physical Exam Const Vital Signs: 04/13/22 21:17 04/13/22 21:17 04/13/22 22:20 Temperature 96.0 F L 96.0 F L Temperature Source Temporal Temporal Pulse Rate 112 H 112 H Respiratory Rate 18 18 Respiratory Effort Respiratory Depth Respiratory Pattern Blood Pressure 145/105 H 145/105 H Blood Pressure Mean 118 118 Pulse Ox 98 98 96 Oxygen Delivery Method Room Air Room Air Room Air Oxygen Flow Rate (L/min) 04/13/22 22:20 04/13/22 22:22 04/13/22 22:42 Temperature Temperature Source Pulse Rate 112 H 76 Respiratory Rate 40 H Respiratory Effort Short of Breath Labored Accessory Muscle Use Respiratory Depth Shallow Respiratory Pattern Tachypnea Blood Pressure 119/80 Blood Pressure Mean 93 Pulse Ox 99 Oxygen Delivery Method Room Air Room Air Room Air Oxygen Flow Rate (L/min) 04/13/22 22:42 04/13/22 22:42 Temperature Temperature Source Pulse Rate 99 Respiratory Rate 35 H Respiratory Effort Respiratory Depth Respiratory Pattern Blood Pressure 109/82 H Blood Pressure Mean 91 Pulse Ox 94 98 Oxygen Delivery Method Nasal Cannula Nasal Cannula Oxygen Flow Rate (L/min) 2 2 Positive well nourished and obese Constitutional Narrative: Dyspneic. She speaking in short sentences. General Appearance ED: Negative for pallor Nutritional Appearance: obese HEENT Reports moist mucous membranes Eyes PERRL and EOMs intact bilaterally Neck no lymphadenopathy Resp Resp Narrative: Tachypneic, speaking in short sentences, Cardio regular rhythm Rate: tachycardic GI non-tender Neuro oriented x3 and CN's II-XII intact bilaterally Sensorium / Orientation: alert Motor Exam: strength 5/5 throughout Psych mental status grossly normal Skin no wounds General Skin Exam: Negative for pallor MDM MDM MDM Narrative Medical decision making narrative: Patient presenting with dyspnea. Differential includes but is not limited to COPD, CHF, NSTEMI as he had an elevated troponin, acute kidney disease, viral illness. Patient does look dyspneic but he is maintaining his airway. He speaking in short sentences. His lungs are clear and is not wheezing. EKG was obtained to assess for dysrhythmia and ischemia. On my interpretation this shows a sinus tachycardia with a ventricular rate of 113/min. Parable 160 ms, QRS duration 82 ms, QTc 474 ms. BNP today was 600. This is high for the patient. High-sensitivity troponin today on outpatient basis was 118. Tonight it is 126. I suspect clinically patient on the patient's exam that he is in CHF. And this is probably heart strain from that he has a known history of CHF and his most recent EF was 35%. Patient is status post nephrectomy as well and has increase in his creatinine and decreased GFR. I did look in clinic think. His creatinine on 04/09/2022 was 1.57 with a GFR of was 51. It was noted that the patient's O2 sat dropped into the 70s. He was on 2 L nasal cannula and is appears stable. This point I think he needs to be admitted for CHF exacerbation. Discussed with hospitalist for admission. Impression: 1. CHF exacerbation 2. Dyspnea 3. Elevated troponin 4. Hypoxia Lab Data Attestation: I reviewed the patient's lab results. Labs: Laboratory Results - last 24 hr 04/13/22 04/13/22 04/13/22 21:40 21:40 22:29 WBC 5.7 RBC 4.03 L Hgb 12.8 L Hct 38.2 L MCV 94.8 H MCH 31.8 MCHC 33.5 RDW Std Deviation 69.1 H RDW Coeff of Lizzie 20.2 H Plt Count 197 MPV 10.8 Immature Gran % (Auto) 0.400 Neut % (Auto) 79.4 H Lymph % (Auto) 12.7 L Barrow % (Auto) 7.1 Eos % (Auto) 0.0 Baso % (Auto) 0.4 Absolute Neuts (auto) 4.5 Absolute Lymphs (auto) 0.72 L Nucleated RBC % 1.8 Differential Comment SCANNED PT 21.7 H INR 1.9 Sodium 143 Potassium 3.7 Chloride 111 H Carbon Dioxide 25.0 Anion Gap 7 BUN 15 Creatinine 1.94 H Estim Creat Clear Calc 44.21 Est GFR (MDRD) Af Amer 46 L Est GFR (MDRD) Non-Af 38 L BUN/Creatinine Ratio 7.7 L Glucose 125 H Calcium 9.0 Troponin I High Sens 126 H* Radiography Diagnostic Testing: Clinical Impression(s) from Imaging Studies Chest X-Ray 04/13/22 21:40 IMPRESSION: Right sixth rib based mass redemonstrated. Similar bilateral lower lung infiltrates. Electronically Signed: David Moreno MD at 21:56 EST , Discharge Plan Triage Chief Complaint: Shortness of Breath ED Provider: Kei Dunn Dx/Rx/DC Orders Prescriptions: No Action cyclobenzaprine 10 mg Tablet 10 mg PO TID PRN (Reason: Spasms) carvedilol 6.25 mg tablet See Rx Instructions .ROUTE .COMPLEX Rx Instructions: 3 TAB, TWICE DAILY ondansetron HCl 8 mg Tablet 8 mg PO Q8H PRN (Reason: Nausea) spironolactone 25 mg tablet 12.5 mg PO DAILY pantoprazole 40 mg Tablet,Delayed Release (Dr/Ec) 40 mg PO DAILY ferrous sulfate 325 mg (65 mg iron) Tablet 325 mg PO BID albuterol 90 mcg/actuation Aerosol 90 mcg INHALATION Q4H PRN PRN (Reason: breathing) rosuvastatin 40 mg Tablet 40 mg PO DAILY cabozantinib 20 mg Tablet 20 mg PO DAILY torsemide 40 mg Tablet 40 mg PO DAILY warfarin 10 mg Tablet 7 mg PO DAILY losartan 50 mg tablet 50 mg PO DAILY Qty: 60 0RF prednisone 20 mg tablet 20 mg PO BID Qty: 10 0RF cefdinir 300 mg capsule 300 mg PO BID Qty: 14 0RF furosemide [Lasix] 40 mg tablet 40 mg PO DAILY Qty: 14 0RF Primary Care Provider: Jose Ramon Tunrer Referrals: Jose Ramon Turner MD [Primary Care Provider] - What to do if you have Problems For any increased pain, shortness of breath, bleeding, nausea or vomiting, chestpain, or any unexpected problems, contact your Primary Care Provider. Call [facility] ([phone]) or report to the closest Emergency Room. Call 911 if necessary. 04/13/22 2351 <Electronically signed by Kei Dunn DO> Cosigner Signature (if applicable): CC: Dr. Jose Ramon Turner MD ~ Signed [facility] Work Phone: [phone]) 918-808702-07-[address] Dunn [facility] April 13, 2022 11:51pm Note Date/Time April 13, 2022 1 0:31pm [facility] Medical Records Department [address] [place] [address] Emergency Department Summary 04/13/22 MR#: [id number] Acct: [id number] Name: YEFRI YANEZ Rep #:[id number] : 1965 57 From: Kei Dunn DO PCP: Dr. Jose Ramon Turner MD Status: REG ER Location: ED HPI History of Present Illness Chief Complaint: Shortness of Breath Narrative Narrative: 57-year-old male with history of CHF, COPD, A-fib presenting with shortness of breath. Patient states has been this way for about 2 weeks with worsening over the last couple of days. Patient is status post nephrectomy on February [address] Aravind Lopez at [facility]. Patient reported that he is on a daily chemotherapy agent. He also has had 1 radiation to the right kidney. 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 He is on combo. Patient has metastatic disease to the ribs. Patient does not report a fever, chills. He does report acough. This is a chronic cough. Patient also reports that he has chest tightness when he coughs. He describes orthopnea which is not new as well. Dyspnea on exertion. Patient was seen by his primary care physician today. He did outpatient blood work and he was told that his troponin was elevated today. PFSH PFSH Medical History Atrial fibrillation Cancer Chest pain Congestive heart failure (CHF) CPAP (continuous positive airway pressure) dependence Hypertension Irregular heart beat Sleep apnea Smoker Home Medications albuterol 90 mcg/actuation aerosol inhaler 90 mcg inhalation Q4H PRN PRN breathing 12/07/21 [History Last Taken Unknown] cabozantinib 20 mg tablet 20 mg PO DAILY 12/07/21 [History Last Taken Unknown] carvedilol 6.25 mg tablet See Rx Instructions .Route .COMPLEX 12/07/21 [History Last Taken Unknown] cyclobenzaprine 10 mg tablet 10 mg PO TID PRN Spasms 12/07/21 [History Last Taken Unknown] ferrous sulfate 325 mg (65 mg iron) tablet 325 mg PO BID 12/07/21 [History Last Taken Unknown] ondansetron HCl 8 mg tablet 8 mg PO Q8H PRN Nausea 12/07/21 [History Last Taken Unknown] pantoprazole 40 mg tablet,delayed release 40 mg PO DAILY 12/07/21 [History Last Taken Unknown] rosuvastatin 40 mg tablet 40 mg PO DAILY 12/07/21 [History Last Taken Unknown] spironolactone 25 mg tablet 12.5 mg PO DAILY 12/07/21 [History Last Taken Unknown] torsemide 40 mg tablet 40 mg PO DAILY 12/07/21 [History Last Taken Unknown] warfarin 10 mg tablet 7 mg PO DAILY Check with primary doctor 12/07/21 [History Last Taken Unknown] losartan 50 mg tablet 50 mg PO DAILY #60 tabs 12/09/21 [Rx Last Taken Unknown] prednisone 20 mg tablet 20 mg PO BID #10 tabs 01/20/22 [Rx Last Taken Unknown] cefdinir 300 mg capsule 300 mg PO BID #14 caps 01/29/22 [Rx Last Taken Unknown] furosemide 40 mg tablet (Lasix) 40 mg PO DAILY #14 tabs 01/29/22 [Rx Last Taken Unknown] Allergy/AdvReac Type Severity Reaction Status Date / Time aspirin [ASA] Allergy Other Verified 04/13/22 22:21 Penicillins Allergy PT UNSURE Verified 04/13/22 22:21 OF REACTION shellfish derived Allergy Hives Verified 04/13/22 22:21 Social History Smoking Status: Current every day smoker tobacco type: cigars ROS ROS ED Constitutional Constitutional ED: Denies chills or fever(s) Eyes Eyes: Denies change in vision or diplopia ENT ENT ED: Denies rhinorrhea or sore throat Cardiovascular Cardiovascular: Reports chest pain, orthopnea and palpitations Respiratory/Chest Respiratory/Chest: Reports cough, dyspnea, dyspnea on exertion and orthopnea Gastrointestinal Gastrointestinal: Denies abdominal pain, nausea or vomiting Genitourinary Genitourinary ED: Denies dysuria or hematuria Musculoskeletal Musculoskeletal: Denies myalgias or neck pain Integumentary Denies abscess Neurologic Neurologic: Denies headache(s) or paresthesias Psychiatric Psychiatric: Denies anxiety or depression EXAM Physical Exam Const Vital Signs: 04/13/22 21:17 04/13/22 21:17 04/13/22 22:20 Temperature 96.0 F L 96.0 F L Temperature Source Temporal Temporal Pulse Rate 112 H 112 H Respiratory Rate 18 18 Respiratory Effort Respiratory Depth Respiratory Pattern Blood Pressure 145/105 H 145/105 H Blood Pressure Mean 118 118 Pulse Ox 98 98 96 Oxygen Delivery Method Room Air Room Air Room Air Oxygen Flow Rate (L/min) 04/13/22 22:20 04/13/22 22:22 04/13/22 22:42 Temperature Temperature Source Pulse Rate 112 H 76 Respiratory Rate 40 H Respiratory Effort Short of Breath Labored Accessory Muscle Use Respiratory Depth Shallow Respiratory Pattern Tachypnea Blood Pressure 119/80 Blood Pressure Mean 93 Pulse Ox 99 Oxygen Delivery Method Room Air Room Air Room Air Oxygen Flow Rate (L/min) 04/13/22 22:42 04/13/22 22:42 Temperature Temperature Source Pulse Rate 99 Respiratory Rate 35 H Respiratory Effort Respiratory Depth Respiratory Pattern Blood Pressure 109/82 H Blood Pressure Mean 91 Pulse Ox 94 98 Oxygen Delivery Method Nasal Cannula Nasal Cannula Oxygen Flow Rate (L/min) 2 2 Positive well nourished and obese Constitutional Narrative: Dyspneic. She speaking in short sentences. General Appearance ED: Negative for pallor Nutritional Appearance: obese HEENT Reports moist mucous membranes Eyes PERRL and EOMs intact bilaterally Neck no lymphadenopathy Resp Resp Narrative: Tachypneic, speaking in short sentences, Cardio regular rhythm Rate: tachycardic GI non-tender Neuro oriented x3 and CN's II-XII intact bilaterally Sensorium / Orientation: alert Motor Exam: strength 5/5 throughout Psych mental status grossly normal Skin no wounds General Skin Exam: Negative for pallor MDM MDM MDM Narrative Medical decision making narrative: Patient presenting with dyspnea. Differential includes but is not limited to COPD, CHF, NSTEMI as he had an elevated troponin, acute kidney disease, viral illness. Patient does look dyspneic but he is maintaining his airway. He speaking in short sentences. His lungs are clear and is not wheezing. EKG was obtained to assess for dysrhythmia and ischemia. On my interpretation this shows a sinus tachycardia with a ventricular rate of 113/min. Parable 160 ms, QRS duration 82 ms, QTc 474 ms. BNP today was 600. This is high for the patient. High-sensitivity troponin today on outpatient basis was 118. Tonight it is 126. I suspect clinically patient on the patient's exam that he is in CHF. And this is probably heart strain from that he has a known history of CHF and his most recent EF was 35%. Patient is status post nephrectomy as well and has increase in his creatinine and decreased GFR. I did look in clinic think. His creatinine on 04/09/2022 was 1.57 with a GFR of was 51. It was noted that the patient's O2 sat dropped into the 70s. He was on 2 L nasal cannula and is appears stable. This point I think he needs to be admitted for CHF exacerbation. Discussed with hospitalist for admission. Impression: 1. CHF exacerbation 2. Dyspnea 3. Elevated troponin 4. Hypoxia Lab Data Attestation: I reviewed the patient's lab results. Labs: Laboratory Results - last 24 hr 04/13/22 04/13/22 04/13/22 21:40 21:40 22:29 WBC 5.7 RBC 4.03 L Hgb 12.8 L Hct 38.2 L MCV 94.8 H MCH 31.8 MCHC 33.5 RDW Std Deviation 69.1 H RDW Coeff of Lizzie 20.2 H Plt Count 197 MPV 10.8 Immature Gran % (Auto) 0.400 Neut % (Auto) 79.4 H Lymph % (Auto) 12.7 L Barrow % (Auto) 7.1 Eos % (Auto) 0.0 Baso % (Auto) 0.4 Absolute Neuts (auto) 4.5 Absolute Lymphs (auto) 0.72 L Nucleated RBC % 1.8 Differential Comment SCANNED PT 21.7 H INR 1.9 Sodium 143 Potassium 3.7 Chloride 111 H Carbon Dioxide 25.0 Anion Gap 7 BUN 15 Creatinine 1.94 H Estim Creat Clear Calc 44.21 Est GFR (MDRD) Af Amer 46 L Est GFR (MDRD) Non-Af 38 L BUN/Creatinine Ratio 7.7 L Glucose 125 H Calcium 9.0 Troponin I High Sens 126 H* Radiography Diagnostic Testing: Clinical Impression(s) from Imaging Studies Chest X-Ray 04/13/22 21:40 IMPRESSION: Right sixth rib based mass redemonstrated. Similar bilateral lower lung infiltrates. Electronically Signed: David Moreno MD at 21:56 EST Reading Location ID and State: [facility] / [place] Tel , Service support , Discharge Plan Triage Chief Complaint: Shortness of Breath ED Provider: Kei Dunn Dx/Rx/DC Orders Prescriptions: No Action cyclobenzaprine 10 mg Tablet 10 mg PO TID PRN (Reason: Spasms) carvedilol 6.25 mg tablet See Rx Instructions .ROUTE .COMPLEX Rx Instructions: 3 TAB, TWICE DAILY ondansetron HCl 8 mg Tablet 8 mg PO Q8H PRN (Reason: Nausea) spironolactone 25 mg tablet 12.5 mg PO DAILY pantoprazole 40 mg Tablet,Delayed Release (Dr/Ec) 40 mg PO DAILY ferrous sulfate 325 mg (65 mg iron) Tablet 325 mg PO BID albuterol 90 mcg/actuation Aerosol 90 mcg INHALATION Q4H PRN PRN (Reason: breathing) rosuvastatin 40 mg Tablet 40 mg PO DAILY cabozantinib 20 mg Tablet 20 mg PO DAILY torsemide 40 mg Tablet 40 mg PO DAILY warfarin 10 mg Tablet 7 mg PO DAILY losartan 50 mg tablet 50 mg PO DAILY Qty: 60 0RF prednisone 20 mg tablet 20 mg PO BID Qty: 10 0RF cefdinir 300 mg capsule 300 mg PO BID Qty: 14 0RF furosemide [Lasix] 40 mg tablet 40 mg PO DAILY Qty: 14 0RF Primary Care Provider: Jose Ramon Turner Referrals: Jose Ramon Turner MD [Primary Care Provider] - What to do if you have Problems For any increased pain, shortness of breath, bleeding, nausea or vomiting, chestpain, or any unexpected problems, contact your Primary Care Provider. Call [facility] ([phone]) or report to the closest Emergency Room. Call 911 if necessary. 04/13/22 2351 <Electronically signed by Kei Dunn DO> Cosigner Signature (if applicable): CC: Dr. Jose Ramon Turner MD ~ Signed [facility] Work Phone: 1(289) 150-857302-02-2023 NoteHNO ID: [id number] Author: Sary Garcia RN Service: ? Author Type: Registered Nurse Type: Progress Notes Filed: 04/09/2022 1:29 PM Note Text: Patient treatment being held today per physician discretion. Sary Garcia RN [facility]02-02-2023 NoteHNO ID: [id number] Author: Liliam Ashley RN Service: ? Author Type: Registered Nurse Type: Progress Notes Filed: 04/09/2022 1:29 PM Note Text: [employer] Chart Processing Date: 2022 Laboratory: Draw labs: Pending Labs. Office visit prior to treatment please verify all needed labs were drawn and review results. Chemotherapy Orders: Orders NOT released to Pharmacy. TREATMENT RN TO RELEASE Consents: Consent form needs signed by patient Special Instructions: Validate [facility]ba [facility] History of Present illness Narrative* Sary Garcia RN - 04/09/2022 1:29 PM EST Patient treatment being held today per physician discretion. Sary Garcia RN BSN * Liliam Ashley RN - 04/09/2022 11:30 AM EST [employer] Operator Chart Processing Date: 2022 Laboratory: Draw labs: Pending Labs. Office visit prior to treatment please verify all needed labs were drawn and review results. Chemotherapy Orders: Orders NOT released to Pharmacy. TREATMENT RN TO RELEASE Consents: Consent form needs signed by patient Special Instructions: Validate nba Ashley RN documented in this encounterHenry [facility] Hospital02-02-2023 NoteHNO ID: [id number] Author: Haylee Wilburn MD Service: ? Author Type: Physician Type: Progress Notes Filed: 04/09/2022 4:21 PM Note Text: [facility] Progress Note SERVICE DATE: April 09, 2022 ONCOLOGIC HISTORY: Yefri Yanez is a 56 year old male diagnosed with metastatic renal cell ca diagnosed in June 2021. 06/2021: Presented with syncopal episode. 06/17/21: CT: a large soft tissue mass in the anterolateral right chest wall likely arising in the right sixth rib measuring 8.9 x 5.6 cm and 7.4cm R renal mass and L4 destructive soft tissue mass. 06/30/21: Bone scan showed focal increased tracer uptake are demonstrated in the L4, right lateral sixth rib. 07/01/21: Biopsy of R chest wall mass showing metastatic renal cell carcinoma 08/08/21: Started Cabo and Nivo on Cyto-KIK; TRIAL (CYTO reductive surgery in Kidney cancer plus Immunotherapy (nivolumab) and targeted Kinase inhibition (cabozantinib) 08/18/21, cabo held due to worse HTN. 09/11/21, Nivo held due to pneumonitis. 10/2021, Due to insurance change, he was taken off the trial. 11/2021, he resumed Cabo 20 mg daily. 12/26/21, completed palliative XRT to L3-L5, 2,000 cGy in 5 fx. 02/06/22, Da Farzad assisted robotic right radical nephrectomy. 03/29/22, CT showed interval decrease in size right 6th rib expansile metastasis. Decrease in size of lytic metastasis centered in L4. New new lesions. HISTORY OF PRESENT ILLNESS: Mr. Yefri Yanez is a 56 year old male found accidentally in 06/2021 to have a R renal mass, R rib lesion, and L4 lesion. Soft tissue/right chest wall mass biopsy from 07/01/2021 showed metastatic RCC. He started treatment with cabo + nivo on [facility] 1820 Trial on 08/08/2021 at [facility]. He has baseline HTN and developed worsening HTN after starting treatment. His cabo was held on 08/18/2021, resumed on 09/11/2021. The Nivo was held on 09/11/21 due to pneumonitis, and prednisone 60 mg daily was started and tapered off within about one month. Due to insurance change, he was taken off the trial and referred to [facility]. All treatments were supposed to be held until after surgery. He was initially scheduled to have nephrectomy on 11/04/21, but delayed due to his back pain. He underwent palliative XRT to L3-L5 (2,000 cGy in 5 fx), completed 12/26/21). Later on his surgery was postponed several times due to insurance. Eventually he underwent Da Farzad assisted robotic right radical nephrectomy by Dr. Aravind Hernandez at [facility] in [facility] on 02/06/2022. PATHOLOGY: -Renal cell carcinoma, clear-cell type, 5.3 x 3.0 x 2.7 cm, ISUP nuclear grade 3. -Carcinoma invades renal vein and lurdes-nephritic adipose tissue. -Margins of resection are negative for carcinoma. -Lymphovascular invasion not identified. -Regional lymph nodes not submitted. -[id number]. HISTORY OF PRESENT ILLNESS: As a matter of fact, patient has been taking single agent Cabo 20 mg daily since November 2021, even though he was supposed to wait until after surgery. Overall he has tolerated this medication well without any problems. Cabo was held during surgery, resumed postoperatively. His blood pressure has been within normal range. Clinically, he has been doing well other than chronic fatigue. He does not sleep well at night. 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 He denies pain in the chest wall or back. He denies syncope, seizure, headaches, blurred vision. He wants to go back to work part-time because he is bored at home. Current Outpatient Medications Medication Sig Dispense Refill furosemide (LASIX) 40 mg tablet Take 1 tablet by mouth once daily. torsemide (DEMADEX) 20 mg tablet Take 2 tablets by mouth once daily. TAKE 2 TABLETS BY MOUTH TO EQUAL 40 MG ONCE PER DAY 180 tablet 1 amLODIPine (NORVASC) 10 mg tablet albuterol (PROVENTIL) 2.5 mg /3 mL (0.083 %) nebulizer solution carvedilol (COREG) 12.5 mg tablet once daily. losartan (COZAAR) 50 mg tablet lovastatin (MEVACOR) 20 mg tablet daily at bedtime. TRELEGY ELLIPTA 100-62.5-25 mcg inhalation powder spironolactone (ALDACTONE) 25 mg tablet Take 0.5 tablets by mouth once daily. 30 tablet 2 warfarin (COUMADIN) 5 mg tablet Take 1 tablet by mouth once daily. (Patient taking differently: Take 7 mg by mouth once daily. 7mg per patient 6-7 mg it changes at times) 30 tablet 2 rosuvastatin (CRESTOR) 40 mg tablet Take 1 tablet by mouth once daily. 90 tablet 3 albuterol HFA (PROVENTIL HFA, VENTOLIN HFA) 90 mcg/actuation inhaler Inhale 2 Puffs as instructed every 4 hours as needed for wheezing/shortness of breath. 1 Inhaler 0 ferrous sulfate 325 mg (65 mg iron) tablet TAKE 1 TABLET BY MOUTH TWICE A DAY (Patient taking differently: 1 tablet once daily.) 60 tablet 2 cyclobenzaprine (FLEXERIL) 10 mg tablet Take by mouth three times daily as needed for muscle spasm. acetaminophen (TYLENOL EXTRA STRENGTH) 500 mg tablet Take 2 table (more content not included)...[facility]01-26-2023 Miscellaneous Notes* Telephone Encounter - Donavon Eastman - 04/02/2022 11:02 AM EST Patient did not show for appointment with , left message to call office put on recall Donavon Eastman' documented in this encounterHenry [facility] Hospital01-26-2023 Miscellaneous Notes* Telephone Encounter - America Schwartz RN - 04/02/2022 10:51 AM ESTSummary: Appointment Called patient and in regards to missed office visit with Dr. Wilburn, and immunotherapy appointment. No answer left messages for patient to call and reschedule. America Schwartz RN, BSN, OCN documented in this encounterHenry County Hospital01-19-2023 NoteHNO ID: [id number] Author: Jerica Parsons RT(R) Service: Radiology Author Type: Technologist Type: Progress Notes Filed: 03/26/2022 10:17 AM Note Text: Radiology Service Progress Note DATE OF SERVICE: March 26, 2022 TIME: 10:16 AM PATIENT IDENTITY VERIFICATION COMPLETED USING TWO (2) STANDARD IDENTIFIERS: Name and Date of confirmed by patient verbally. FALL SCREENING: Has the patient had 2 falls in the last year or 1 fall with injury or currently using an Ambulatory Assistive Device (Walker, Cane, Wheelchair, Crutches, etc.)? No PATIENT GENDER DATA: Male PATIENT RELEVANT IMPLANT DATA REVIEWED: Not Applicable ALLERGIES: Reviewed and unchanged CONTRAST ALLERGY: NO. EXAM: CT -CONTRAST INDUCED NEPHROPATHY RISK FACTORS: Not applicable CREATININE: Creatinine Date Value Ref Range Status 02/17/2022 1.96 (H) 0.50 - 1.40 mg/dL Final Comment: Patients receiving either N-Acetylcysteine (NAC) or Metamizole prior to venipuncture, may have falsely depressed results. 10/27/2021 1.07 0.73 - 1.22 mg/dL Final 10/09/2021 1.19 0.73 - 1.22 mg/dL Final Estimated Glomerular Filtration Rate Date Value Ref Range Status 02/17/2022 39 (L) >=60 mL/min/1.73m? Final Comment: Estimated Glomerular Filtration Rate (eGFR) is calculated using the 2020 CKD-EPI creatinine equation. This equation utilizes serum creatinine, sex, and age as parameters. The creatinine assay has traceable calibration to isotope dilution-mass spectrometry. Refer to KDIGO guidelines for clinical interpretation. In patients with unstable renal function, e.g. those with acute kidney injury, the eGFR may not accurately reflect actual GFR. eGFR- Date Value Ref Range Status 11/06/2019 >60 Final P.O.C.T. RESULTS: POC done: Yes, See Lab Tab March 26, 2022 TREATMENT: N/A PERIPHERAL IV DATA: Ambulatory: A peripheral IV was started in the Right antecubital site with a Angio cath: 22 gauge. RADIOLOGY DEPARTMENT: CT; Exam(s) Completed: Abdomen/Pelvis SIGNATURE: RT Gerard(R) PATIENT NAME: Yefri Yanez DATE: March 26, 2022 TIME: 10:16 [facility]01-18-2023 Miscellaneous Notes* Telephone Encounter - Tania Parekh RN - 03/25/2022 8:57 AM EST Patient called stating his insurance is not approved for our office and that Dr. Wilburn needs to place a Referral for [facility]. I reminded him that last week he called me telling me that his insurance is making him go to [facility] for the scans and not [facility] and do not understand how he could be approved with one or the other. I instructed him to go ahead and have the scans done since they have been approved, I had asked him if he had eaten anything, he stated, he had a sandwich. Instructedto contact central scheduling to let them know and to see if he needs to reschedule and to call back. Informed Dr. Wilburn about scans he stated if we need to push back patient's appointment then we canfor next week if need be. Message Tessa Gary, our director so that maybe she can clarify the insurance information.Tania Parekh RN documented in this encounterHenry County Hospital01-16-2023 NoteHNO ID: [id number] Author: RT Citlaly(R) Service: ? Author Type: Technologist Type: Progress Notes Filed: 03/23/2022 12:10 PM Note Text: RADIOLOGY SERVICE PROGRESS NOTE SERVICE DATE: 03/23/2022 SERVICE TIME: 12:10 PM PATIENT IDENTITY VERIFICATION COMPLETED USING TWO (2) STANDARD IDENTIFIERS: Name and Date of confirmed by patient verbally FALL SCREENING: Has the patient had 2 falls in the last year or 1 fall with injury or currently using an Ambulatory Assistive Device (Walker, Cane, Wheelchair, Crutches, etc.)? No PATIENT GENDER DATA: .male ALLERGIES: Reviewed and unchanged MEDICATIONS REVIEWED: Not applicable PATIENT RELEVANT IMPLANT DATA REVIEWED: Not Applicable CREATININE: Creatinine Date Value Ref Range Status 02/17/2022 1.96 (H) 0.50 - 1.40 mg/dL Final Comment: Patients receiving either N-Acetylcysteine (NAC) or Metamizole prior to venipuncture, may have falsely depressed results. 10/27/2021 1.07 0.73 - 1.22 mg/dL Final 10/09/2021 1.19 0.73 - 1.22 mg/dL Final Estimated Glomerular Filtration Rate Date Value Ref Range Status 02/17/2022 39 (L) >=60 mL/min/1.73m? Final Comment: Estimated Glomerular Filtration Rate (eGFR) is calculated using the 2020 CKD-EPI creatinine equation. This equation utilizes serum creatinine, sex, and age as parameters. The creatinine assay has traceable calibration to isotope dilution-mass spectrometry. Refer to KDIGO guidelines for clinical interpretation. In patients with unstable renal function, e.g. those with acute kidney injury, the eGFR may not accurately reflect actual GFR. eGFR- Date Value Ref Range Status 11/06/2019 >60 Final P.O.C.T. RESULTS: N/A March 23, [address] PERFORMED: No IV SITE: Ambulatory: NM only - direct IV injection in the Right antecubital site POST EXAM PIV STATUS: Not applicable PROCEDURE TYPE: NM INJECT: Whole Body Bone Scan. 21.8 mCi Tc99m MDP. No other medications given.. ADMINISTRATION TIME: 08:45 PATIENT DISCHARGED TO: Ambulatory patient, left [place] department area. A Diagnostic radioactive procedure has taken place, with no further precautions necessary other than routine body substance precautions. More information regarding radiation safety can be found using this link: [email or web address] SIGNATURE: RT Citlaly(Damion) PATIENT NAME: Yefri Yanez DATE: March 23, 2022 TIME: 12:10 PM PAGER/CONTACT #:[facility]01-16-2023 History of Present illness Narrative* STEPHANIE Monterroso) - 03/23/2022 12:10 PM EST RADIOLOGY SERVICE PROGRESS NOTE SERVICE DATE: 03/23/2022 SERVICE TIME: 12:10 PM PATIENT IDENTITY VERIFICATION COMPLETED USING TWO (2) STANDARD IDENTIFIERS: Name and Date of confirmed by patient verbally FALL SCREENING: Has the patient had 2 falls in the last year or 1 fall with injury or currently using an Ambulatory Assistive Device (Walker, Cane, Wheelchair, Crutches, etc.)? No PATIENT GENDER DATA: .male ALLERGIES: Reviewed and unchanged MEDICATIONS REVIEWED: Not applicable PATIENT RELEVANT IMPLANT DATA REVIEWED: Not Applicable CREATININE: Creatinine Date Value Ref Range Status 02/17/2022 1.96 (H) 0.50 - 1.40 mg/dL Final Comment: Patients receiving either N-Acetylcysteine (NAC) or Metamizole prior to venipuncture, may have falsely depressed results. 10/27/2021 1.07 0.73 - 1.22 mg/dL Final 10/09/2021 1.19 0.73 - 1.22 mg/dL Final Estimated Glomerular Filtration Rate Date Value Ref Range Status 02/17/2022 39 (L) >=60 mL/min/1.73m Final Comment: Estimated Glomerular Filtration Rate (eGFR) is calculated using the 2020 CKD-EPI creatinine equation. This equation utilizes serum creatinine, sex, and age as parameters. The creatinine assay has traceable calibration to isotope dilution- mass spectrometry. Refer to KDIGO guidelines for clinical interpretation. In patients with unstable renal function, e.g. those with acute kidney injury, the eGFRmay not accurately reflect actual GFR. eGFR- Date Value Ref Range Status 11/06/2019 >60 Final P.O.C.T. RESULTS: N/A March 23, [address] PERFORMED: No IV SITE: Ambulatory: MO only - direct IV injection in the Right antecubital site POST EXAM PIV STATUS: Not applicable PROCEDURE TYPE: NM INJECT: Whole Body Bone Scan. 21.8 mCi Tc99m MDP. No other medications given.. ADMINISTRATION TIME: 08:45 PATIENT DISCHARGED TO: Ambulatory patient, left [place] department area. A Diagnostic radioactive procedure has taken place, with no further precautions necessary other than routine body substance precautions. More information regarding radiation safety can be found usingthis link: [email or web address]%[email or web address]%[email or web address] SIGNATURE: RT Citlaly(Damion) PATIENT NAME: Yefri Yanez DATE: March 23, 2022 TIME: 12:10 PM PAGER/CONTACT #: documented in this encounterHenry County Hospital01-09-2023 Miscellaneous Notes* Telephone Encounter - Malachi Schaffer RPh - 03/16/2022 11:27 AM EST Prior authorization was approved for Inlyta. Plan Name: [employer] [place] reference number: [id number] Approval Dates: 03/08/2022 - 03/13/2023 However, s/he is required to use [facility] to fill this medication. Will queue prescription(s) to go to designated specialty pharmacy. For reference, their pharmacy phone number is [phone]. No further action by CC Specialty. Radha Schaffer, PharmD, AANEVP Clinical Pharmacist, Oncology [facility] P: ; F: Pool: P CC [facility] ONCOLOG[facility] Pool #: [id number] documented in this encounterHenry County Hospital01-05-2023 Miscellaneous Notes* Telephone Encounter - America Schwartz RN - 03/12/2022 10:37 AM ESTSummary: Appointment LMOM with the appointment dates, times and location of upcoming bone scan and CT scans. Bone scan 03/23/22 at 830 am here at the [facility]. CT scans at [place] 03/24/22 at 1pm. America Reed RN, BSN, OCN documented in [facility]23 [facility] History of Present illness Narrative* Adirenne Chung (Food Technologist) - 03/12/2022 8:13 AM EST [facility] received prescription(s) for Inlyta from Dr. Wilburn's office. Benefits investigation was conducted, indicating that a prior authorization is required by patient's insurance plan with [employer]. Encounter will be updated once prior authorization has been submitted by [facility]. Adrienne Chung, Lead earth science technical officer [facility], Oncology P: / F: documented in this encounterHenry County Hospital01-04-2023 NoteHNO ID: [id number] Author: Haylee Wilburn MD Service: ? Author Type: Physician Type: Progress Notes Filed: 03/11/2022 4:16 PM Note Text: [facility] Progress Note SERVICE DATE: March 11, 2022 ONCOLOGIC HISTORY: Yefri Yanez is a 56 year old male diagnosed with metastatic renal cell ca diagnosed in June 2021. 06/2021: Presented with syncopal episode. 06/17/21: CT: a large soft tissue mass in the anterolateral right chest wall likely arising in the right sixth rib measuring 8.9 x 5.6 cm and 7.4cm R renal mass and L4 destructive soft tissue mass. 06/30/21: Bone scan showed focal increased tracer uptake are demonstrated in the L4, right lateral sixth rib. 07/01/21: Biopsy of R chest wall mass showing metastatic renal cell carcinoma 08/08/21: Started Cabo and Nivo on Cyto-KIK; TRIAL (CYTO reductive surgery in Kidney cancer plus Immunotherapy (nivolumab) and targeted Kinase inhibition (cabozantinib) 08/18/21-09/11/21, cabo held due to worse HTN. 09/11/21, Nivo held due to pneumonitis. 12/26/21, completed palliative XRT to L3-L5, 2,000 cGy in 5 fx. HISTORY OF PRESENT ILLNESS: Mr. Yefri Yanez is a 56 year old male found accidentally in 06/2021 to have a R renal mass, R rib lesion, and L4 lesion. Soft tissue/right chest wall mass biopsy from 07/01/2021 showed metastatic RCC. He started treatment with cabo + nivo on [facility] 1820 Trial on 08/08/2021 at [facility]. He has baseline HTN and developed worsening HTN after starting treatment. His cabo was held on 08/18/2021, resumed on 09/11/2021. The Nivo was held on 09/11/21 due to pneumonitis, and prednisone 60 mg daily was started and tapered off within about one month. Due to insurance change, he was taken off the trial and referred to [facility] to resume the treatment. He was scheduled to have nephrectomy on 11/04/21, but delayed due to his back pain. He underwent palliative XRT to L3-L5 (2,000 cGy in 5 fx), completed 12/26/21). He underwent da Farzad assisted robotic right radical nephrectomy at [facility] in [facility]. I do not have the official pathology report yet. We have made multiple requests to [facility] for the surgical pathology, to no avail. Clinically, has been doing well. He denies pain in the chest wall or back. He denies syncope, seizure, headaches, blurred vision. He wants to go back to work part-time because he is bored at home. Current Outpatient Medications Medication Sig Dispense Refill furosemide (LASIX) 40 mg tablet Take 1 tablet by mouth once daily. torsemide (DEMADEX) 20 mg tablet Take 2 tablets by mouth once daily. TAKE 2 TABLETS BY MOUTH TO EQUAL 40 MG ONCE PER DAY 180 tablet 1 amLODIPine (NORVASC) 10 mg tablet albuterol (PROVENTIL) 2.5 mg /3 mL (0.083 %) nebulizer solution carvedilol (COREG) 12.5 mg tablet once daily. polyethylene glycol 3350 (MIRALAX, GLYCOLAX) 17 gram/dose powder losartan (COZAAR) 50 mg tablet CABOMETYX 20 mg tablet once daily. lovastatin (MEVACOR) 20 mg tablet daily at bedtime. TRELEGY ELLIPTA 100-62.5-25 mcg inhalation powder spironolactone (ALDACTONE) 25 mg tablet Take 0.5 tablets by mouth once daily. 30 tablet 2 warfarin (COUMADIN) 5 mg tablet Take 1 tablet by mouth once daily. (Patient taking differently: Take 7 mg by mouth once daily. 7mg per patient 6-7 mg it changes at times) 30 tablet 2 rosuvastatin (CRESTOR) 40 mg tablet Take 1 tablet by mouth once daily. 90 tablet 3 albuterol HFA (PROVENTIL HFA, VENTOLIN HFA) 90 mcg/actuation inhaler Inhale 2 Puffs as instructed every 4 hours as needed for wheezing/shortness of breath. 1 Inhaler 0 ferrous sulfate 325 mg (65 mg iron) tablet TAKE 1 TABLET BY MOUTH TWICE A DAY (Patient taking differently: 1 tablet once daily.) 60 tablet 2 cyclobenzaprine (FLEXERIL) 10 mg tablet Take by mouth three times daily as needed for muscle spasm. acetaminophen (TYLENOL EXTRA STRENGTH) 500 mg tablet Take 2 tablets by mouth every 6 hours as needed for pain. [address] (PROTONIX) 40 mg tablet Take 1 tablet by mouth once daily. 90 tablet 3 iv contrast (will be provided with radiology test) CT Chest ABD/PEL-Inject, intravenously, once for 1 dose.No IV access, insert saline lock prior to the beginning of sedation, infusion, injection of imaging exam. Discontinue saline lock post exam. If Pt. has a central line or IVAD, may access for administration according to line specific nursing protocol. Once exam is complete flush line and de-access according to line specific nursing protocol in the CT contrast administration guidelines link. 1 Each 0 warfarin (COUMADIN) 1 mg tablet warfarin (COUMADIN) 2 mg tablet warfarin (COUMADIN) 3 mg tablet oxyCODONE IR (ROXICODONE) 5 mg immediate release tablet (Patient not taking: Reported on 03/11/2022) Current Facility-Administered Medications Medication Dose Route Frequency Provider Last Rate Last Admin perflutren lipid microsphere (more content not included)...[facility] 03-11-2022 History of Present illness Narrative* Haylee Wilburn MD - 03/11/2022 1:25 PM EST Images from the original note were not included. [facility] Progress Note SERVICE DATE: March 11, 2022 ONCOLOGIC HISTORY: Yefri Yanez is a 56 year old male diagnosed with metastatic renal cell ca diagnosed in June 2021. 06/2021: Presented with syncopal episode. 06/17/21: CT: a large soft tissue mass in the anterolateral right chest wall likely arising in the right sixth rib measuring 8.9 x 5.6 cm and 7.4cm R renal mass and L4 destructive soft tissue mass. 06/30/21: Bone scan showed focal increased tracer uptake are demonstrated in the L4, right lateral sixth rib. 07/01/21: Biopsy of R chest wall mass showing metastatic renal cell carcinoma 08/08/21: Started Cabo and Nivo on Cyto-KIK; TRIAL (CYTO reductive surgery in Kidney cancer plus Immunotherapy (nivolumab) and targeted Kinase inhibition (cabozantinib) 08/18/21-09/11/21, cabo held due to worse HTN. 09/11/21, Nivo held due to pneumonitis. 12/26/21, completed palliative XRT to L3-L5, 2,000 cGy in 5 fx. HISTORY OF PRESENT ILLNESS: Mr. Yefri Yanez is a 56 year old male found accidentally in 06/2021 to have a R renal mass, R rib lesion, and L4 lesion. Soft tissue/right chest wall mass biopsy from 07/01/2021 showed metastaticRCC. He started treatment with cabo + nivo on [facility] 1820 Trial on 08/08/2021 at [facility]. He has baseline HTN and developed worsening HTN after starting treatment. His cabo was held on 08/18/2021, resumed on 09/11/2021. The Nivo was held on 09/11/21 due to pneumonitis, and prednisone 60 mg daily was started and tapered off within about one month. Due to insurance change, he was taken off the trial and referred to [facility] to resume the treatment. He was scheduled to have nephrectomy on 11/04/21, but delayed due to his back pain. He underwent palliative XRT to L3-L5 (2,000 cGy in 5 fx), completed 12/26/21). He underwent da Farzad assisted robotic right radical nephrectomy at [facility] in [place]. I do not have the official pathology report yet. We have made multiple requests to [facility] for the surgical pathology, to no avail. Clinically, has been doing well. He denies pain in the chest wall or back. He denies syncope, seizure, headaches, blurred vision. He wants to go back to work part-time because he is bored at home. Current Outpatient Medications Medication Sig Dispense Refill furosemide (LASIX) 40 mg tablet Take 1 tablet by mouth once daily. torsemide (DEMADEX) 20 mg tablet Take 2 tablets by mouth once daily. TAKE 2 TABLETS BY MOUTH TO EQUAL 40 MG ONCE PER DAY 180 tablet 1 amLODIPine (NORVASC) 10 mg tablet albuterol (PROVENTIL) 2.5 mg /3 mL (0.083 %) nebulizer solution carvedilol (COREG) 12.5 mg tablet once daily. polyethylene glycol 3350 (MIRALAX, GLYCOLAX) 17 gram/dose powder losartan (COZAAR) 50 mg tablet CABOMETYX 20 mg tablet once daily. lovastatin (MEVACOR) 20 mg tablet daily at bedtime. TRELEGY ELLIPTA 100-62.5-25 mcg inhalation powder spironolactone (ALDACTONE) 25 mg tablet Take 0.5 tablets by mouth once daily. 30 tablet 2 warfarin (COUMADIN) 5 mg tablet Take 1 tablet by mouth once daily. (Patient taking differently: Take 7 mg by mouth once daily. 7mg per patient 6-7 mg it changes at times) 30 tablet 2 rosuvastatin (CRESTOR) 40 mg tablet Take 1 tablet by mouth once daily. 90 tablet 3 albuterol HFA (PROVENTIL HFA, VENTOLIN HFA) 90 mcg/actuation inhaler Inhale 2 Puffs as instructed every 4 hours as needed for wheezing/shortness of breath. 1 Inhaler 0 ferrous sulfate 325 mg (65 mg iron) tablet TAKE 1 TABLET BY MOUTH TWICE A DAY (Patient taking differently: 1 tablet once daily.) 60 tablet 2 cyclobenzaprine (FLEXERIL) 10 mg tablet Take by mouth three times daily as needed for muscle spasm. acetaminophen (TYLENOL EXTRA STRENGTH) 500 mg tablet Take 2 tablets by mouth every 6 hours as needed for pain. [address] (PROTONIX) 40 mg tablet Take 1 tablet by mouth once daily. 90 tablet 3 iv contrast (will be provided with radiology test) CT Chest ABD/PEL-Inject, intravenously, once for1 dose.No IV access, insert saline lock prior to the beginning of sedation, infusion, injection of imaging exam. Discontinue saline lock post exam. If Pt. has a central line or IVAD, may access for administration according to line specific nursing protocol. Once exam is complete flush line and de-access according to line specific nursing protocol in the CT contrast administration guidelines link.1 Each 0 warfarin (COUMADIN) 1 mg tablet warfarin (COUMADIN) 2 mg tablet warfarin (COUMADIN) 3 mg tablet oxyCODONE IR (ROXICODONE) 5 mg immediate release tablet (Patient not taking: Reported on 03/11/2022) Current Facility-Administered Medications Medication Dose Route Frequency Provider Last Rate Last Admin perflutren lipid microspheres 1.3 mL in NaCl (PF) 0.9% 10 mL injection (DEFINITY) INTRAVENOUS DIRECTED PRBelkis Tello MD sodium chloride 0.9 % (flush) 10 mL (BD POSIFLUSH) 10 mL INTRAVENOUS DIRECTED PRN Sayra Tello MD REVIEW OF SYSTEMS: Review of Systems Constitutional: Negative for appetite change, chills, fever and unexpected weight change. HENT: Negative for lump/mass, mouth sores and nosebleeds. Eyes: Negative for icterus. Respiratory: Negative for chest tightness, cough, hemoptysis and shortness of breath. Cardiovascular: Negative for chest pain, leg swelling and palpitations. Gastrointestinal: Negative for abdominal pain, blood in stool and constipation. Genitourinary: Negative for dysuria and frequency. Musculoskeletal: Negative for arthralgias, back pain and gait problem. Skin: Negative for itching and rash. Neurological: Negative for dizziness, gait problem, headaches, light-headedness, numbness and seizures. Hematological: Negative for adenopathy. Does not bruise/bleed easily. Psychiatric/Behavioral: Negative for confusion and decreased concentration. PHYSICAL EXAM: BP 134/84 Pulse 78 Resp 16 Wt 118.8 kg (262 lb) BMI 36.54 kg/m2 Body mass index is 36.54 kg/m . Estimated body surface area is 2.44 meters squared as calculated from the following: Height as of 02/16/22: 180.3 cm (5' 11). Weight as of this encounter: 118.8 kg (262 lb). ECO- Fully active, able to carry on all pre-disease performance w/o restriction. Physical Exam Vitals and nursing note reviewed. Constitutional: Appearance: Normal appearance. HENT: Head: Normocephalic and atraumatic. Nose: Nose normal. Mouth/Throat: Pharynx: Oropharynx is clear. Eyes: Extraocular Movements: Extraocular movements intact. Pupils: Pupils are equal, round, and reactive to light. Cardiovascular: Rate and Rhythm: Regular rhythm. Pulmonary: Effort: Pulmonary effort is normal. Breath sounds: Normal breath sounds. Abdominal: Palpations: Abdomen is soft. Tenderness: There is no abdominal tenderness. Musculoskeletal: General: Normal range of motion. Cervical back: Normal range of motion and neck supple. Right lower leg: No edema. Left lower leg: No edema. Neurological: General: No focal deficit present. Mental Status: He is alert and oriented to person, place, and time. Psychiatric: Mood and Affect: Mood normal. Behavior: Behavior normal. IMPRESSION: Yefri Yanez is a 57 year old male diagnosed with metastatic renal cell carcinoma in June 2021. He initially presented with a syncopal episode. The imagings revealed a large right renal mass and chest wall soft tissue mass. He underwent neoadjuvant therapy with Cabo and Nivo, but couldn't tolerate them due to pneumonitis and HTN. He also underwent palliative radiation to his lumbar spine and his back pain has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 recovering from his recent right nephrectomy. At this time, the patient will follow-up with our office on an as-needed basis. He will continue to follow-up with his surgeon and medical oncology. I informed the patient that he can call our office if he has any questions regarding his treatment or develops any concerning symptoms. Suman Peterson APRN.BEATRICE documented in this encounterHenry [facility]12-06-2022 Hospital Discharge instructions* Follow Up Appointment 1:Physician/Dept/Service: Dr. Lockett for Referral: post op follow upCall to Schedule in: 2 weeksPhone Number: [phone]: Please call to schedule appointment * Follow Up Appointment 2:Physician/Dept/Service: [facility] for Referral: Hospitalfollow up - blood pressureComments: Please call to schedule * Urology Discharge Instructions:Radical Nephrectomy. - DESCRIPTION OF PROCEDURE. - Your surgeon removed one of your kidneys. - ACTIVITY. - Do not drive or operate heavy machinery while taking narcoticmedication or if you have discomfort that impairs your ability to make sudden movements. - You should refrain from lifting more than 15 lbs and doing strenuous activities for 6 weeks. - RETURN TO WORK. You should return to work 23-Feb-2022. - DIET - You may resume a normal diet and make sure to drink plenty of fluids. - SHOWERING AND BATHING. - You may let soapy water run over your incisions or an y surgical drains left in place at discharge but avoid vigorous scrubbing. - It is OK to shower 48 hours after surgery, but avoid tubsoaks or any prolonged submersion in water. * Signs and Symptoms:- SIGNS and SYMPTOMS - EXPECTED. - Pain at the incision site. - Oozing of blood-tinged fluid from the incision or drain site. - Minimal bruising or purplish discoloration of the skin may appear after the procedure. - WORRISOME - NOTIFY YOUR PHYSICIAN OR RESIDENT FORENSIC TECHNICIAN. - Fever g reater than 101 F or 38.3 C, chills, nausea, vomiting, or feeling ill. - Inability to urinate. - Drainage of foul smelling fluid (pus) from the incision or drain sites. - Excruciating pain that is not controlled by prescription or [id number] medications. * Medication Information:- You were sent home on the below medication(s). The generic drug name is given along with why we prescribed it. Please refer to the pharmacy pamphlet for possible interactionswith your home medications and potential side effects. Acetaminophen / Oxycodone: A narcotic pain medication. Other Medication Information: Miralax: stool softener. * Patient Instructions:- PATIENT INSTRUCTIONS. * Appointments:- PROVIDER/LOCATION. Dr Aravind Hernandez. For any questions, concerns, or need to reschedule appointments, please call our Main Office at [phone]. [facility]12-02-2022 NotePROCEDURE DETAILS Preoperative Diagnosis: renal cell carcinoma, congestive heart failure Postoperative Diagnosis: renal cell carcinoma, congestive heart failure Surgeon: Aravind Hernandez MD Resident/Fellow/Other Digital Sales Director: Clau Diallo MD Procedure: laparoscopic right radical nephrectomy Anesthesia: general ETT Estimated Blood Loss: 75 cc Findings: large posterolateral mass, kidney removed en bloc Specimens(s) Collected: yes, right kidney IV Fluids: 500 albumin 800 crystalloid Drains and/or Catheters: 16 Fr mcgowan catheter Patient Returned To/Condition: ICU in guarded condition Operative Report: This is a 57-year-old male with history of 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 Decision was made through multidisciplinary meeting for XRT to 2 sites of metastasis followed by cytoreductive nephrectomy at outside hospital. Due to patient's insurance, he was unable to receive surgery there and referred to us for further management. Preoperatively patient was noted to have fluid overload, dyspnea, and was thus diuresed preoperatively. A thorough discussion of risks, including cardiovascular events, hemorrhage, respiratory failure, injury to adjacent organs, were discussed. Due to his cardiovascular comorbidities, I estimated a 5-10% risk of . Signed consent was obtained. After obtaining informed consent, the patient was brought back to the operating room, where a preoperative time-out was conducted using 3 patient identifiers. Allergies were reviewed. Appropriate antibiotics were given with gentamicin and ciprofloxacin and anesthesia was inducted. Immediately following induction the patient's SPO2 was 85% but improved with diuresis and resuscitation and decision was made jointly with anesthesia to proceed. We anticipated admission to the ICU postoperatively. A 16 Fr mcgowan catheter was inserted. The patient was repositioned in right lateral decubitus position and was prepped and draped in the normal sterile fashion. A 5-mm incision was made along the lateral border of the rectus in line with the 11th rib. The Veress needle was inserted and the peritoneum was insufflated. The abdomen was examined and there were no injuries from trocar placement. Another 5-mm port was placed a handsbreadth cephalad from the initial port, along the costal margin. A 5 mm liver retractor port was placed just caudal to the xiphoid process. A 12 mm offset press assistant port was placed a hands-breadth inferolateral to the camera port between the port and the ASIS. Adhesions inferior to the liver were taken down sharply and a locking Allis retractor was secured to the abdominal side wall to retract the liver. The White line of Toldt was incised and right colon was mobilized off Gerota's fascia and reflected medially. We attempted to identify a good plane over Gerota's fascia however inflammatory process obliterated tissue planes and made the fat densely adherent. We placed an additional 5mm port between the inferior two ports in the paramedian line to facilitate with exposure. We began to mobilize the liver off the superior pole of the kidney and encountered the adrenal gland. This was carefully spared using sharp and blunt dissection. We completed the upper pole dissection following identification of the psoas muscle laterally. We identified and ligated an adrenal vein near the renal hilum and were able to clear the anterior as well as superior surface of the renal vein and artery. We then developed the inferior window. An Ethicon stapler was used using 45 mm load x 2 to ligate the renal hilum en bloc. Following this, we completed freeing inferior and posterior attachments of the kidney using the Ligasure, taking care to stay out of the kidney capsule posterolaterally where the tumor was located. The kidney was completely freed and placed in a 15 mm Endocatch bag. The area was carefully inspected for hemostasis and Surgicell was placed. The specimen was then extracted via Pfannenstiel incision. An incision was made in the suprapubic region along Langerhans lines and was dissected down through the subcutaneous tissue until the anterior rectus fascia was encountered. This was divided and opened laterally in classic Pfannenstiel fashion. The fascia was mobilized cranially and caudally to create a window for us to fit a hand into extract the specimen. We then bluntly entered the peritoneum under direct vision laparoscopically, grasped the specimen bag, and extracted it via the Pfannenstiel. This incision was then closed in several layers. Initially, several [id number] sutures were placed with 0 Vicryl to reapproximate the bellies of the rectus abdominis. The anterior rectus fascia was then closed using running 0 PDS suture x2. Subcutaneous fat was then c (more content not included)...[facility]12-02-2022 Note History & Physical Reviewed: I have reviewed the History and Physical dated: 27-Jan-2022 History and Physical reviewed and relevant findings noted. Patient examined to review pertinent physical findings.: No significant changes Home Medications Reviewed: no changes noted Allergies Reviewed: no changes noted ERAS (Enhanced Recovery After Surgery): ERAS Patient: no Consent: COVID-19 Consent: COVID-19 Risk ConsentSurgeon has reviewed boucher risks related to the risk of jessi COVID-19 and if they contract COVID-19 what the risks are. Attestation: Note Completion: I am a: Resident/Fellow Attending AttestationI saw and evaluated the patient. I personally obtained the boucher and critical portions of the history and physical exam or was physically present for boucher and critical portions performed by the resident/fellow. I reviewed the resident/fellows documentation and discussed the patient with the resident/fellow. I agree with the resident/fellows medical decision making as documented in the note. I personally evaluated the patient [id number] Electronic Signatures: Aravind Hernandez) (Signed 07-Feb-2022 09:05) Authored: Note Completion Co-Signer: History & Physical Reviewed, ERAS, Consent, Note Completion Clau Diallo (Resident)) (Signed 06-Feb-2022 07:12) Authored: History & Physical Reviewed, ERAS, Consent, Note Completion Last Updated: 07-Feb-2022 09:05 by Aravind Hernandez)[facility] 01-22-2022 Miscellaneous Notes* Telephone Encounter - Bairon Landers MA - 01/22/2022 1:00 PM EST Pt called in to request a refill on his torsemide to be sent to [facility] in [place], this request wassent to Kitty Carballo for approval and processing. Per Kitty this was refused due to we don't prescribe this medication, I called to advise Pt that he will need to contact the prescribing doctor to get a refill on this mediation. He verbalized understanding. documented in this encounterHenry [facility]11-14-2022 NoteHNO ID: [id number] Author: RT Kourtney(R) Service: Radiology Author Type: Technologist Type: Progress Notes Filed: 01/19/2022 11:03 AM Note Text: Summary: CHEST Radiology Service Progress Note PATIENT NAME: Yefri Yanez DATE OF SERVICE: January 19, 2022 TIME: 11:03 AM PATIENT IDENTITY VERIFICATION COMPLETED USING TWO (2) IDENTIFIERS: Name and Date of confirmed by patient verbally. FALL SCREENING: Has the patient had 2 falls in the last year or 1 fall with injury or currently using an Ambulatory Assistive Device (Walker, Cane, Wheelchair, Crutches, etc.)? No PATIENT GENDER DATA: Male PATIENT RELEVANT IMPLANT DATA REVIEWED: Not Applicable RADIOLOGY DEPARTMENT: General X-ray: Exam(s) Completed: Chest X-Ray PERIPHERAL IV DATA: Not applicable SIGNED BY: RT Kourtney(R) January 19, 2022 11:03 [facility]11-14-2022 History of Present illness Narrative* TOÑO OconnellR) - 01/19/2022 10:45 AM ESTSummary: CHEST Radiology Service Progress Note PATIENT NAME: Yefri Yanez DATE OF SERVICE: January 19, 2022 TIME: 11:03 AM PATIENT IDENTITY VERIFICATION COMPLETED USING TWO (2) IDENTIFIERS: Name and Date of confirmedby patient verbally. FALL SCREENING: Has the patient had 2 falls in the last year or 1 fall with injury or currently using an Ambulatory Assistive Device (Walker, Cane, Wheelchair, Crutches, etc.)? No PATIENT GENDER DATA: Male PATIENT RELEVANT IMPLANT DATA REVIEWED: Not Applicable RADIOLOGY DEPARTMENT: General X-ray: Exam(s) Completed: Chest X-Ray PERIPHERAL IV DATA: Not applicable SIGNED BY: RT Kourtney(R) January 19, 2022 11:03 AM documented in this encounterHenry County Hospital10-28-2022 NoteHNO ID: [id number] Author: Alfredo Xavier MD Service: Radiation Oncology Author Type: Physician Type: Progress Notes Filed: 01/07/2022 12:35 AM Note Text: YEFRI YANEZ [id number] 2022 [facility] Department of Radiation Oncology [facility] RADIATION ONCOLOGY: COMPLETION NOTE DATE OF SIMULATION: 12/12/2021 DATES OF TREATMENT: 12/22/2021 to 12/26/2021 TREATMENT MACHINE: Yuyuto TREATMENT AREA: L3-L5 , R CW DIAGNOSIS: 57 year old male with Malignant neoplasm of right kidney, except renal pelvis , histological stage [id number] and clinical stage IV CONCURRENT THERAPY: DELIVERED DOSE: The R CW PTV received a total dose of 2000 cGy in 5 fractions at 400 cGy/fraction prescribed to Isocenter at 98.0% IDL using 15 MV photons with Obliques technique; The L3-L5 PTV received a total dose of 2000 cGy in 5 fractions at 400 cGy/fraction prescribed to Isocenter at 100.0% IDL using 15 MV photons with AP/PA technique; ELAPSED DAYS: 4 TOLERANCE: At last on-treatment visit, his toxicity was summarized as: RESPONSE: To be assessed in outpatient clinic. REMARKS: F/U in 6-8 weeks. This document has been automatically drafted, the information may be in error, particularly for patients who have had multiple courses of treatment or multiple sites of treatment during the same course. Please verify the accuracy to your own satisfaction. Please send your suggestions of improvement to Staff Physician Alfredo Xavier M.D. 24:36 PM Electronically Signed cc: Daksha Mills, [facility]10-28-2022 History of Present illness Narrative * Alfredo Xavier MD - 2022 12:00 AM EDT YEFRI YANEZ [id number] 2022 [facility] Department of Radiation Oncology [facility] RADIATION ONCOLOGY: COMPLETION NOTE DATE OF SIMULATION: 12/12/2021 DATES OF TREATMENT: 12/22/2021 to 12/26/2021 TREATMENT MACHINE: Yuyuto TREATMENT AREA: L3-L5 , R CW DIAGNOSIS: 57 year old male with Malignant neoplasm of right kidney, except renal pelvis , histological stage [id number] and clinical stage IV CONCURRENT THERAPY: DELIVERED DOSE: The R CW PTV received a total dose of 2000 cGy in 5 fractions at 400 cGy/fraction prescribed to Isocenter at 98.0% IDL using 15 MV photons with Obliques technique; The L3-L5 PTV received a total dose of 2000 cGy in 5 fractions at 400 cGy/fraction prescribed to Isocenter at 100.0% IDL using 15 MV photons with AP/PA technique; ELAPSED DAYS: 4 TOLERANCE: At last on-treatment visit, his toxicity was summarized as: RESPONSE: To be assessed in outpatient clinic. REMARKS: F/U in 6-8 weeks. This document has been automatically drafted, the information may be in error, particularly for patients who have had multiple courses of treatment or multiple sites of treatment during the same course. Please verify the accuracy to your own satisfaction. Please send your suggestions of improvementto Staff Physician Alfredo Xavier M.D. 24:36 PM Electronically Signed cc: Daksha Mills Michael documented in this encounterHenry [facility] Hospital10-25-2022 Miscellaneous Notes* Telephone Encounter - Adriana Hodge MD - 12/30/2021 1:53 PM EDT IC Adriana Hodge MD documented in this encounterHenry [facility] Hospital10-23-2022 Miscellaneous Notes* Telephone Encounter - Adriana Hodge MD - 12/28/2021 8:06 AM EDT I called, he wants to proceed with cytored R Rad Nx Very challenging case of met RCC with mets to spine and chest wall Did nt tolerate immunoRx All lesions stable for 4-6 mo since dx Now on [place] have discuessed extensively between myself, Dr. Chester, and Dr. Cox and the consensus was to consider RT to the 2 metastatic sites, then cytored R Rad Nx, then continue systemic therapy I called pt, he tolerated RT to the 2 met sites and just completed this this past week He wants to proceed with cytored R Rad Nx The procedure, see above with robotic approach, open if needed, and risks were reviewed and discussed in detail. We discussed the risks of the anaestheic including but not limited to RI, CVA, DVT, and PE, and the risks of the procedure including but not limited to possible need for blood transfusion, infection, wound healing problems, stricture formation, possible need for reoperation, and possible risks of cancer recurrence. In summary, we discussed the procedure, risks, potential benefits, and reasonable alternatives, andwe also discussed the fact that if this patient elected surgical therapy, that we would operate as a team with involvement of myself as primary surgeon, with possible assistance of our residents, or p otentially a colleague if needed, but that I would be there for critical portions of the procedure. In short, we discussed P/R/B/A/P, in detail, all questions answered We also discussed the possible need for additional or adjuvant treatment depending on pathologic findings. All questions were answered and patient wishes to proceed. Adriana Hodge MD documented in this encounterHenry County Hospital10-22-2022 Miscellaneous Notes* Telephone Encounter - Adriana Hodge MD - 12/27/2021 7:07 PM EDT I tried to call to move his care forward, but had to leave messages on both lines Adriana Hodge MD documented in this encounterHenry [facility] Hospital10-07-2022 NoteHNO ID: [id number] Author: Alfredo Xavier MD Service: Radiation Oncology Author Type: Physician Type: Progress Notes Filed: 12/17/2021 12:34 AM Note Text: YEFRI YANEZ [id number] 12/12/2021 [facility] Department of Radiation Oncology Treatment Planning Note For reasons stated in the consult note, Yefri Yanez is a candidate for radiation therapy. Based on review and interpretation of the relevant diagnostic studies together with the exam findings, Yefri Yanez was simulated on 12/12/2021 at which time the target volume and/or requisite crowe were delineated, as indicated in the simulation note, to be treated according to the prescription. After reviewing the treatment plan with dosimetry, the plan was approved to deliver the prescribed course of radiation to the target area to allow for the best isodose distribution, treating to the 98% isodose line with 15MV and 2 crowe for the chestwall and the 100% isodose line with 15MV and 2 crowe for the L3-5 spine area. Custom MLCs and wedges are the treatment devices used to shape/modify the beams. Special consideration to these and other structures was given in light of the potential for increased toxicities due to treatment of multiple sites concurrently A completed summary of this plan dated 12/15/21 incorporated herein by reference includes dose, beam arrangements, energy, blocking, isodose distribution, and/or ports and DVH. Electronically Signed Alfredo Xavier M.D. :19 [facility]10-07-2022 NoteHNO ID: [id number] Author: Alfredo Xavier MD Service: Radiation Oncology Author Type: Physician Type: Progress Notes Filed: 12/17/2021 12:34 AM Note Text: YEFRI YANEZ [id number] 12/12/2021 [facility] Department of Radiation Oncology [facility] RADIATION ONCOLOGY SIMULATION NOTE DATE OF SIMULATION: 12/12/2021 MACHINE: [employer] CT DIAGNOSIS: Malignant neoplasm of right kidney, except renal pelvis AREA: CHEST CAVITY AND LUMBAR SPINE PROTOCOL: None PATIENT POSITION: Supine. CONTRAST: None BLOCKING: Custom blocking to be determined at the time of treatment planning. FIELD ARRANGEMENT: Field arrangement will be determined after plan has been completed. FIXATION DEVICE: In order to achieve accurate and reproducible treatments, the patient is to be immobilized WITH UPPER AND LOWER VACBAGS A time-out was conducted and recorded by the therapist. CT scan was completed for target localization and planning. The patient is scheduled for a verification simulation on the treatment machine to ensure proper set-up and field arrangement is correct prior to the first treatment of primary and boost crowe if applicable. Patient education will be completed per nursing. Electronically Signed Alfredo Xavier M.D. :06 [facility]10-07-2022 History of Present illness Narrative* Alfredo Xavier MD - 12/12/2021 12:00 AM EDT YEFRI YANEZ [id number] 12/12/2021 [facility] Department of Radiation Oncology Treatment Planning Note For reasons stated in the consult note, Yefri Yanez is a candidate for radiation therapy. Basedon review and interpretation of the relevant diagnostic studies together with the exam findings, Yefri Yanez was simulated on 12/12/2021 at which time the target volume and/or requisite crowe were delineated, as indicated in the simulation note, to be treated according to the prescription. After reviewing the treatment plan with dosimetry, the plan was approved to deliver the prescribed course of radiation to the target area to allow for the best isodose distribution, treating to the 98% isodose line with 15MV and 2 crowe for the chestwall and the 100% isodose line with 15MV and 2 crowe for the L3-5 spine area. Custom MLCs and wedges are the treatment devices used to shape/modifythe beams. Special consideration to these and other structures was given in light of the potential for increased toxicities due to treatment of multiple sites concurrently A completed summary of this plan dated 12/15/21 incorporated herein by reference includes dose, beam arrangements, energy, blocking, isodose distribution, and/or ports and DVH. Electronically Signed Alfredo Xavier M.D. 25:19 PM documented in this encounterHenry [facility]10-07-2022 History of Present illness Narrative* Alfredo Xavier MD - 12/12/2021 12:00 AM EDT YEFRI YANEZ [id number] 12/12/2021 [facility] Department of Radiation Oncology [facility] RADIATION ONCOLOGY SIMULATION NOTE DATE OF SIMULATION: 12/12/2021 MACHINE: [employer] CT DIAGNOSIS: Malignant neoplasm of right kidney, except renal pelvis AREA: CHEST CAVITY AND LUMBAR SPINE PROTOCOL: None PATIENT POSITION: Supine. CONTRAST: None BLOCKING: Custom blocking to be determined at the time of treatment planning. FIELD ARRANGEMENT: Field arrangement will be determined after plan has been completed. FIXATION DEVICE: In order to achieve accurate and reproducible treatments, the patient is to be immobilized WITH UPPER AND LOWER VACBAGS A time-out was conducted and recorded by the therapist. CT scan was completed for target localization and planning. The patient is scheduled for a verification simulation on the treatment machine to ensure proper set-up and field arrangement is correct prior to the first treatment of primary and boost crowe if applicable. Patient education will be completed per nursing. Electronically Signed Alfredo Xavier M.D. 25:06 PM documented in this encounterHenry [facility]10-04-2022 NoteHNO ID: [id number] Author: Alfredo Xavier MD Service: ? Author Type: Physician Type: Progress Notes Filed: 12/09/2021 11:55 AM Note Text: Radiation Oncology - New Patient/Consult Note PATIENT NAME: Yefri Yanez PATIENT REQUESTING PROVIDER: Adriana Hodge MD. DIAGNOSIS: Metastatic renal cell carcinoma with symptomatic metastases in the lumbar spine and right chest wall. Cancer Staging Metastatic renal cell carcinoma (HCC) Staging form: Kidney, AJCC 8th Edition - Clinical: Stage IV (cT2a, cNX, cM1) - Signed by Haylee Wilburn MD on 10/20/2021 HPI: This is a 56-year-old male with a syncopal episode after choking on ice. He was evaluated in the ER at [facility]. As part of his work-up a CT angiogram was performed and revealed a lytic right fifth rib lesion as well as a 5.4 x 7.1 heterogeneous right renal mass. He was referred to urology and a CT-guided needle biopsy of the right chest wall mass performed 07/01/2021 was positive for metastatic renal cell carcinoma, clear-cell type. The patient was enrolled on a clinical trial consisting of nivolumab and cabozantinib with cytoreductive surgery. Cabozantinib who was discontinued due to hypertension. He subsequently developed pneumonitis necessitating discontinuation of nivolumab. He is now back on cabozantinib and is tolerating it well. Other work-up to date includes a total body bone scan performed 06/30/2021. This revealed focal increased uptake in the L4 vertebral body and right lateral sixth rib corresponding to lytic lesions consistent with metastases. Most recent CT of the chest/abdomen/pelvis performed 11/20/2021 showed a large soft tissue mass measuring 8.8 x 5.4 cm in the anterior right chest wall with associated osteolytic destruction of the anterior right sixth rib. This was stable in size when compared to previous scan performed 09/02/2021. There is a slight interval decrease in the right renal cell carcinoma to 6.7 cm. There was a stable osseous metastatic disease in the L4. The patient is referred for consideration for palliative radiation therapy to the lumbar spine and right chest wall. He reports intermittent pain in these areas. ALLERGIES Allergen Reactions Lisinopril Angioedema Shellfish Containin* Anaphylaxis, Hives Aspirin Intolerance Mushroom Hives Penicillins Intolerance PAST MEDICAL HISTORY Diagnosis Date Abdominal aortic aneurysm (AAA) without rupture (HCC) 06/2021 CAD (coronary artery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 encounterHenry County Hospital07-07-2022 [facility]07-[facility] History of Present illness Narrative* Kenneth Chester MD - 09/11/2021 2:03 PM EDT Images from the original note were not included. [facility] Oncology [facility] Patient name: Yefri Yanez : 1965 Date of Service: September 11, 2021 Note copied from August 19, 2021 but boucher elements reviewed, confirmed, and/or updated by me (Kenneth Chester MD) on September 11, 2021. SUBJECTIVE CHIEF COMPLAINT: mRCC CURRENT THERAPY: Started cabo and nivo on Cyto-KIK; TRIAL (CYTO reductive surgery in Kidney cancer plus Immunotherapy (nivolumab) and targeted Kinase inhibition (cabozantinib) HPI: 06/2021: Presented with syncopal episode. Imaging concerning for R renal mass and rib (R 5th) soft tissue lesion 06/27/21: 7.4cm R renal mass and L4 destructive soft tissue mass 06/30/21: Bone scan showed focal increased tracer uptake are demonstrated in the L4, right lateral sixth rib. 07/01/21: Biopsy of R chest wall mass showing metastatic renal cell carcinoma 07/24/21: Start cabo and nivo on Cyto-KIK; TRIAL (CYTO reductive surgery in Kidney cancer plus Immunotherapy (nivolumab) and targeted Kinase inhibition (cabozantinib) INTERVAL HISTORY: Please refer to RN note for additional details. Overall, he is clinically improved. Main issue is shortness of breath. Was present prior to starting therapy but got worse on therapy. Exists with even minimal exertion. Is worst at night. Seeing cardiology for BP, afib, etc. No constipation/diarrhea. No hematuria/dysuria. REVIEW OF SYSTEMS: As above and per RN note OBJECTIVE PHYSICAL EXAM: BP 139/89 Pulse 92 Temp 36.2 C (97.1 F) (Temporal) Resp 20 Wt 118.1 kg (260 lb 4.8 oz) SpO2 95% BMI 36.30 kg/m ECOG / Karnofsky: 1/80% GENERAL: Well appearing and in NAD. Comfortable, alert, ambulatory. Accompanied by spouse HEENT: Normocephalic. Mucous membranes moist. No pallor or jaundice. CV: +murmur LUNGS: +wheezing SKIN: Without notable lesions or rash NEURO: Grossly intact EXT: Without erythema or edema. PSYCH: Normal affect and good eye contact DATA: LABS: Component Latest Ref Rng & Units 09/11/2021 WBC 3.70 - 11.00 k/uL 6.53 RBC 4.20 - 6.00 m/uL 4.56 Hemoglobin 13.0 - 17.0 g/dL 13.5 Hematocrit 39.0 - 51.0 % 42.0 MCV 80.0 - 100.0 fL 92.1 MCH 26.0 - 34.0 pg 29.6 MCHC 30.5 - 36.0 g/dL 32.1 RDW-CV 11.5 - 15.0 % 15.5 (H) Platelet Count 150 - 400 k/uL 267 MPV 9.0 - 12.7 fL 9.7 Neut% % 73.6 Abs Neut (ANC) 1.45 - 7.50 k/uL 4.81 Lymph% % 17.2 Abs Lymph 1.00 - 4.00 k/uL 1.12 Barrow% % 8.1 Abs Barrow <0.87 k/uL 0.53 Eosin% % 0.5 Abs Eosin <0.46 k/uL 0.03 Baso% % 0.3 Abs Baso <0.11 k/uL <0.03 Immature Gran % % 0.3 IMMATURE GRANS (ABS) <0.10 k/uL <0.03 NRBC /100 WBC 0.0 Absolute nRBC <0.01 k/uL <0.01 DTYPE Auto Protein, Total 6.3 - 8.0 g/dL 6.9 Albumin 3.9 - 4.9 g/dL 4.1 Calcium 8.5 - 10.2 mg/dL 9.4 Bilirubin, Total 0.2 - 1.3 mg/dL 0.5 Alkaline Phosphatase 38 - 113 U/L 80 AST 14 - 40 U/L 58 (H) ALT 10 - 54 U/L 82 (H) Glucose 74 - 99 mg/dL 130 (H) BUN 9 - 24 mg/dL 19 Creatinine 0.73 - 1.22 mg/dL 1.18 Sodium 136 - 144 mmol/L 144 Potassium 3.7 - 5.1 mmol/L 3.3 (L) Chloride 97 - 105 mmol/L 103 CO2 22 - 30 mmol/L 29 Anion Gap 9 - 18 mmol/L 12 eGFR >=60 mL/min/1.73m 72 PT Sec 9.7 - 13.0 sec 11.3 PT INR 0.9 - 1.3 1.1 Magnesium 1.7 - 2.3 mg/dL 2.1 Phosphorus 2.7 - 4.8 mg/dL 3.5 LD 135 - 225 U/L 297 (H) Uric Acid 4.0 - 8.1 mg/dL 9.2 (H) APTT 23.0 - 32.4 sec 28.1 ASSESSMENT AND PLAN Mr. Yefri Yanez is a 56 year old male found in 06/2021 to have a R renal mass, R rib lesion, and L4 lesion. Soft tissue, right chest wall mass biopsy from 07/01/2021 showing metastatic RCC. Started treatment with cabo + nivo on [facility] 1820 on 08/08/2021. He has baseline HTN and developed worsening HTN after starting treatment. His cabo was held starting on 08/18/2021 BP is better. Will restart cabo at 20mg per day. 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 Hold nivo. Start prednisone 60mgper day. Will call next Wednesday to begin taper is clinically improved. Follow closely. HTN and Heart Failure and AFib Following with cardiology. Has been prescribed lasix, coreg, lovenox. We will work with him to ensure he can access all medications and take the regularly. This patient has a metastatic cancer and is on active treatment that requires active monitoring andmedical oversight. I have reviewed, assessed, and graded all AEs and SAEs with the clinical research nurse. Causality was assigned. These were reviewed with the patient/family/significant other(s) and the medical team and are listed in the clinical research nurse's note. Kenneth Chester MD documented in this encounterHenry County Hospital07-07-2022 Nurse Note* Ariadne Wood RN - 09/11/2021 1:29 PM EDT Additional intake questions: Has the patient had fever, nausea, vomiting, diarrhea, constipation, fatigue for > 1 week? Yes, fatigue and SOB Does the patient have a decreased appetite? No Does patient want to see a Electrotype Servicer? No (yes to any of above refer patient to schedulers for dietitian appointment) ) Does patient have any new or increased numbness or tingling of extremities? No Is patient interested in fertility information? No Does patient need any prescription refills? No Does patient have an advanced directive in place? No, Patient referred to [facility] documented in this encounterHenry County Hospital07-07-2022 History of Present illness Narrative* Godfrey Clayton RN - 09/11/2021 1:17 PM EDT IRB#: [id number], [facility]# [facility] 1820, Cyto-KIK; TRIAL (CYTO reductive surgery in Kidney cancer plus Immunotherapy (nivolumab) and targeted Kinase inhibition (cabozantinib) Cycle: 2 Week: 1 Phase: 2 Cohort: 2 Pt is here for C2D1 of IRB# [id number] . PE completed by Dr. Kenneth Chester. Was PE completed by a Fellow No ECO- Fully active, able to carry on all pre-disease performance w/o restriction. KPS 100% First Visit August 08, 2021: Patient does continue to meet eligibility to proceed with therapy Subsequent Visit September 11, 2021: Patient states his dyspnea has improved since last visit, however,is still having dyspnea that worsens when laying down. Dr. Chester prescribed course of steroids for patient to take. Informed patient that this nurse would follow up with patient next 09/16/21, to review symptoms. Instructed patient to continue taking blood pressure daily and record readings.Patient's blood pressure has improved and is following with cardiology. Patient stated that thecosts for Lovenox is too expensive to pay out of pocket. Instructed patient to call and speak with cardiology for change in medication. Instructed patient to call if unable to reach cardiology. Also,instructed patient to make a follow up appointment with cardiology regarding care. Per Dr Chester,patient does continue to meet eligibility to proceed with therapy for a dose reduction of Cabozantinib 20 mg daily. Due to patients dyspnea will hold dose of Nivo today. Instructed patient to call with any new or worsening symptoms. Patient verbalized understanding. Quality of life questionnaire completed per protocol: Yes Clinical trial labs completed per protocol: Yes VS completed per protocol: Yes Vitals 09/11/2021 SITTING SYSTOLIC 139 SITTING DIASTOLIC 89 PULSE 92 TEMPERATURE 97.1 RESPIRATIONS 20 WEIGHT in POUNDS 260 lb 4.8 oz WEIGHT in KILOGRAMS 118.071 kg HEIGHT in INCHES HEIGHT in CM BP Position BP Site BP Cuff Size SITTING BP 139/89 PULSE OX 95 BODY MASS INDEX 36.3 Baseline Weight (08/06/2021)-118.3kg Current Weight (08/19/2021)-118.1kg Weight Difference-0.17% Concomitant medications reviewed per protocol: yes Changes per patient: Yes, see below Current Outpatient Medications Medication Sig Indication Start Date Comment nicotine (NICODERM) 14 mg/24 hr Apply 1 Patch as directed every 24 hours. Smoking Cessation 07/15/2021 nicotine polacrilex (NICORETTE) 2 mg gum Take 1 Each by mouth every 2 hours as needed. Smoking Cessation 07/15/2021 acetaminophen (TYLENOL EXTRA STRENGTH) 500 mg tablet Take 2 tablets by mouth every 6 hours as needed for pain. Back Pain 07/15/[address] (PROTONIX) 40 mg tablet Take 1 tablet by mouth once daily. GERD 2019 ferrous sulfate (IRON) 325 mg (65 mg iron) tablet Take 1 tablet by mouth twice daily. Iron Deficiency Anemia > 20 years potassium chloride (KLOR-CON) 20 mEq packet Potassium Chloride* ([id number]) 20 MEQ PACKET Active 20 MEQ PO Hypokalemia 2019 MULTIVITAMIN TAB Take one(1) tablet daily. General Health 2018 Albuterol 90mcg 1 puff as directed 07/18/2021 Flexeril 10mg Take 1 tablet three times daily as needed Back pain 07/18/2021 Spironolactone 25mg Take 1 tablet daily HTN 07/22/2021 08/19/2021 Zofran 8mg Take 1 tablet PO every 8 hours PRN Nausea 07/24/2021 Cabozantinib 20mg Take two tablets once daily RCC 08/08/21 (Hold-08/18/2021) Crestor 40mg Take 1 tablet once daily HLD 08/19/2021 Coreg 6.25mg Take three tablets PO BID HTN 09/04/2021 Lasix 40mg Take 1 tablet PO BID Heart failure 09/04/2021 Lovenox 120mg/0.8 ml Inject 0.8 ml subcutaneously every 12 hours A fib 09/04/21 Patient states he has not started med 09/11/21 Prednisone 20mg Take 3 tablets PO daily SOB 09/11/21 [employer] CTCAE V.5 Hypertension Grade 3 Start date:08/15/2021 Stop date: 09/11/2021 probably r/t cabo, not r/t nivo Action:noel bob (08/18/2021), follow up with cardiology, monitor Outcome:changed back to baseline of grade 2 Alanine aminotransferase increased Grade 1 Start date:08/19/2021 Stop date:NA probably r/t cabo, possibly r/t nivo Action:monitor Outcome:ongoing Aspartate aminotransferase increased Grade 1 Start date:08/19/2021 Stop date:Na probably r/t cabo, possibly r/t nivo Action:monitor Outcome:ongoing Insomnia Grade 2 Start date: 08/27/2021 resolved date: NA unrelated to cabo, likely r/t dyspnea, unrelated to nivo Action:monitor outcome:ongoing Cough Grade 1 Start date: 09/02/2021 resolved date: NA possibly r/t cabo, possibly r/t nivo possibly r/t heart failure Action:monitor outcome:ongoing Anorexia Grade 2 Start date: 08/27/2021 resolved date: 09/11/21 possibly r/t cabo, possibly r/t nivo possibly r/t heart failure Action:monitor outcome:Resolved Hypokalemia Grade 1 Start date: 09/02/2021 resolved date: NA possibly r/t cabo, possibly r/t nivo, probably r/t dyspnea, Action:monitor outcome:ongoing Dyspnea Grade 3 Start date:09/02/2021 Stop date:09/11/2021 unlikely r/t cabo possibly r/t nivo, likely r/t heart failure, probably r/t atrial fibrallation Action:DANIEL, CT Chest, monitor Outcome:changed to grade 2 Dyspnea Grade 2 Start date:09/11/2021 Stop date:NA unlikely r/t cabo possibly r/t nivo, likely r/t heart failure, probably r/t atrial fibrallation Action:short course of steroids, hold Nivo (09/11/21) monitor Outcome:ongoing Atrial Fibrillation Grade 3 Start date:09/02/2021 Stop date:09/11/21 possibly r/t cabo, possibly r/t heart failure, unrelated to nivo Action: Sent to ER for evaluation, monitor, Outcome:Changed to Grade 2 Atrial Fibrillation Grade 2 Start date:09/11/2021 Stop date:NA possibly r/t cabo, possibly r/t heartfailure, unrelated to nivo Action: Lovenox, follow up with cardiology, monitor, Outcome:ongoing Heart Failure Grade 3 Start date:09/02/2021 Stop date:09/11/2021 possibly r/t heart failure, possibly r/t baseline heart failure, definitely r/t uncontrolled blood pressure, possibly r/t cabo, unrelated to nivo Action:Sent to ER for evaluation, monitor Outcome:Changed to grade 2 Heart Failure Grade 2 Start date:09/11/2021 Stop date:NA possibly r/t heart failure, possibly r/t baseline heart failure, definitely r/t uncontrolled blood pressure, unlikely r/t cabo, unrelated to nivo, likely r/t atrial fibrillation Action: Follow up with cardiology, monitor Outcome:ongoing Toxicities and Laboratory Results Not Gradable per CTCAE: Chest Tightness Grade 1 possibly r/t cabo, unrelated to nivo Start date: 09/02/2021 resolved date: 09/11/21 Outcome:Resolved Baseline Complaints per CTCAE v. 5: All predate therapy, are chronic conditions and will not be actively followed unless they worsen during the clinical trial. Hypertension Grade 2 Start date: 2017 Action required: Medication and cardiology consult Hyperlipidemia Grade 2 Start date: 2018 Action required: Medication Muscle Cramp Grade 1 Start date: 01/2021 Action required: Medication Heart failure Grade 1 Start date: 07/2021 Action required: Other: cardiology consult Fatigue Grade 1 Start date: 06/2021 Action required: None Dyspnea Grade 1 Start date: 07/12/2021 Action required: None Paresthesia Grade 1, arms, Start date: > 10 years Action required: None Back Pain Grade 1 Start date:06/2021 Action required:none Hypermagnesemia Grade 1 Start Date: 08/06/2021 Action required: None Aspartate aminotransferase increased Grade 1 Start Date: 08/06/21 Action Required: None Creatinine Increased Grade 1 Start Date: 08/06/21, Action Required: None Blood lactate dehydrogenase increased Grade 1 Start Date: 08/06/21 Action Required: None Mitral Valve Disease Grade 2 Start Date: 06/2021 Action Required: Medication, cardiology consulted Hyperuricemia Grade 1 Start date:07/21/2021 Action required:none (Added to baseline on 09/11/21) Blood Glucose not graded as patient was not fasting Compliance: The patient was not compliant. Patient states that he forgot to bring in his previous bottles of cabozanitnib and drug diary. Instructed patient to bring in all bottles of cabozantinib and completed drug diary at his next visit. Patient verbalized understanding. The patient was given a new study medication diary and 1 bottles of 30 tablets each (total 30 tablets) of Cabozanitib as dispensed by the pharmacy. Instructed to return the diary and medication bottle with any remaining medication at next study visit. Use of the study medication diary and dosing instructions were reviewed with the patient. RTC in 2 weeks. Pt expresses understanding to call with any questions or concerns in the interim. Patient states understanding of all instructions provided. The provider has reviewed and verified the information included within this note, including AE information Godfrey Clayton RN documented in this encounterHenry County Hospital07-01-2022 Miscellaneous Notes* Telephone Encounter - Marysol Lane RN - 09/05/2021 4:07 PM EDT Called Yefri for more information regarding message received. Call back number given. * Telephone Encounter - Rakel Monge - 09/05/2021 2:16 PM EDT Yefri Yanez is calling Kenneth Chester MD today regarding Laboratory Apparatus Glass Blower - Other States that when patient was in the hospital Dr Khan prescribed Lobenos and states that is very costly. Asking for a generic or something different that is affordable. Patient has been identified by name and birthdate. Duration of symptoms: N/A Requesting response back: call at home [phone] (home) [phone] (cell) Rakel Monge September 05, 2021 documented in this encounterHenry County Hospital06-29-2022 [facility]06-[facility]22 Note [facility]06[facility] History of Present illness Narrative* Godfrey Clayton RN - 09/02/2021 4:55 PM EDT IRB#: [id number][facility] [id number], Cyto-KIK; TRIAL (CYTO reductive surgery in Kidney cancer plus Immunotherapy (nivolumab) and targeted Kinase inhibition (cabozantinib) Patient presented in [facility] for shortness of breath. Patient endorses increased dyspnea that has impeded him from sleeping at night. Patient also endorses chest tightness, dry cough, and decreased appetite. Fazal Melo PA-C evaluated patient and ordered a CT chest to rule out PE. Placed on 2L of O2 for symptom management. Attempted to directly admit patient, however, was told there were no available beds. Consulted Fazal Melo and the decision was made to DANIEL patient. Patient and spouse agreeable to plan. [employer] CTCAE V.5 Insomnia Grade 2 Start date: 08/27/2021 resolved date: NA unrelated to cabo, likely r/t dyspnea, unrelated to nivo Action:monitor outcome:ongoing Cough Grade 1 Start date: 09/02/2021 resolved date: NA possibly r/t cabo, possibly r/t nivo possibly r/t heart failure Action:monitor outcome:ongoing Anorexia Grade 2 Start date: 08/27/2021 resolved date: NA possibly r/t cabo, possibly r/t nivo possibly r/t heart failure Action:monitor outcome:ongoing Hypokalemia Grade 1 Start date: 09/02/2021 resolved date: NA possibly r/t cabo, possibly r/t nivo, probably r/t dyspnea, Action:monitor outcome:ongoing Dyspnea Grade 2 Start date:08/27/2021 Stop date:09/02/21possibly r/t cabo possibly r/t nivo, likelyr/t heart failure, Action:referral to [facility] clinic, CXR, monitor Outcome:Changed to Grade 3 Dyspnea Grade 3 Start date:09/02/2021 Stop date:NA possibly r/t cabo possibly r/t nivo, likely r/t heart failure, probably r/t atrial fibrallation Action:DANIEL, CT Chest, monitor Outcome:ongoing Atrial Fibrillation Grade 3 Start date:09/02/2021 Stop date:NA possibly r/t cabo, possibly r/t heart failure, unrelated to nivo Action: Sent to ER for evaluation, monitor, Outcome:ongoing Heart Failure Grade 3 Start date:09/02/2021 Stop date:NA possibly r/t heart failure, possibly r/t baseline heart failure, definitely r/t uncontrolled blood pressure, possibly r/t cabo, unrelated to nivo Action:Sent to ER for evaluation, monitor Outcome:ongoing Toxicities and Laboratory Results Not Gradable per CTCAE: Chest Tightness Grade 1 possibly r/t cabo, unrelated to nivo Start date: 09/02/2021 resolved date: NA Outcome:ongoing Godfrey Clayton RN documented in this encounterHenry County Hospital06-28-2022 Nurse Note* Warren Garvin LPN - 09/02/2021 4:41 PM EDT [facility] Emergency Response Team Date of the Event: September 02, 2021 Time of the Event:1641 Select Floor / Area: [facility] - Clinic Reason/Chief Complaint for Emergency Call (Check all that apply): Respiratory: New onset difficulty breathing History of Events Prior to DANIEL Activation and any treatment administered prior to DANIEL Team arrival? PT presented to [facility] clinic with SOB for last week. Pt placed on 2L O2, also CT scan done in building before DANIEL called. Individuals involved in Emergency Medical Response? Warren Garvin LPN, MARLEN Mccarthy, America Clayton RN Patient Disposition: Emergency Department Warren Garvin LPN * Karla Flowers LPN - 09/02/2021 2:08 PM EDT Additional intake questions: Has the patient had fever, nausea, vomiting, diarrhea, constipation, fatigue for > 1 week? Yes, SOB Does the patient have a decreased appetite? No Does patient want to see a Electrotype Servicer? No (yes to any of above refer patient to schedulers for dietitian appointment) ) Does patient have any new or increased numbness or tingling of extremities? No Is patient interested in fertility information? No Does patient need any prescription refills? No Does patient have an advanced directive in place? No, Patient refused referral to Social Work or Resource Center documented in this encounterHenry County Hospital06-28-2022 NoteBl[facility]06-28-2022 NoteBl[facility]06-28-[facility]22 History of Present illness Narrative* Sybil Skinner RN - 09/02/2021 3:00 PM EDT RADIOLOGY SERVICE PROGRESS NOTE DATE OF SERVICE: September 02, 2021 TIME OF SERVICE: 1614 EVENT: CONTRAST EXTRAVASATION / IV or MEDICATION INFILTRATE Type: Contrast (specify) - Omnipaque 350 Estimated Volume: approximately 30mL Location: Right antecubital site. IV Gauge: 20. Method of Injection: Power Injector. Cool compress given: Yes. Skin Assessment: (1) Skin blanched; edema <1 inch in any direction; cool to touch; with or without pain. Symptoms: Swelling/edema and tenderness. Physician notified: Dr. Kaushik CLEMENT Treatment: Peripheral IV access discontinued, Cold compress and Extremity elevation. At Home instructions given to patient: Yes. ADDITIONAL EVENT DETAILS: Radiologist Dr. Faulkner to contact ordering service. SIGNATURE: Sybil Skinner RN PATIENT NAME: Yefri Yanez DATE: September 02, 2021 TIME: 4:16 PM PAGER/CONTACT #: * RT Yomi(R) - 09/02/2021 3:00 PM EDT Radiology Service Progress Note PATIENT NAME: Yefri Yanez DATE OF SERVICE: September 02, 2021 TIME: 3:54 PM PATIENT IDENTITY VERIFICATION COMPLETED USING TWO (2) IDENTIFIERS: Name and Date of confirmedby patient verbally and Name and Date of confirmed by identification band. FALL SCREENING: Has the patient had 2 falls in the last year or 1 fall with injury or currently using an Ambulatory Assistive Device (Walker, Cane, Wheelchair, Crutches, etc.)? Yes, Patient High Riskfor Falls What interventions were put in place to prevent falls during this visit? Increased Observations by Caregivers PATIENT GENDER DATA: Male PATIENT RELEVANT IMPLANT DATA REVIEWED: Yes RADIOLOGY DEPARTMENT: CT; Exam(s) Completed: PE Study PERIPHERAL IV DATA: Site assessment: Clean,Dry and Intact, Site disposition Discontinued SIGNED BY: RT Yomi(R) September 02, 2021 3:54 PM * Dorothea Ron RN - 09/02/2021 3:00 PM EDT Radiology Service Progress Note DATE OF SERVICE: September 02, 2021 TIME: 3:24 PM PATIENT WEIGHT: 260LBS PATIENT IDENTITY VERIFICATION COMPLETED USING TWO (2) STANDARD IDENTIFIERS: Name and Date of confirmed by patient verbally and Name and Date of confirmed by identification band. FALL SCREENING: Has the patient had 2 falls in the last year or 1 fall with injury or currently using an Ambulatory Assistive Device (Walker, Cane, Wheelchair, Crutches, etc.)? Yes, Patient High Riskfor Falls What interventions were put in place to prevent falls during this visit? [place] Risk Wristband Applied, Instructed Patient to Call for Help if Needed, Offered Assistance with Transfers/Clothing, Instructed Patient to Remain Seated (Not on Exam Table) Until Exam and Increased Observations byCaregivers PATIENT GENDER DATA: Male ALLERGIES: Reviewed and unchanged CONTRAST ALLERGY: No EXAM: CT -CONTRAST INDUCED NEPHROPATHY RISK FACTORS: History of Kidney surgery, Kidney neoplasm, Liver disease, and/or any recent Nephrotoxic Chemotherapy or other Nephrotoxic medications and Congestive Heart Failure (CHF) CREATININE: Creatinine Date Value Ref Range Status 09/02/2021 1.07 0.73 - 1.22 mg/dL Final 08/19/2021 1.26 (H) 0.73 - 1.22 mg/dL Final 08/17/2021 1.21 0.73 - 1.22 mg/dL Final Estimated Glomerular Filtration Rate Date Value Ref Range Status 09/02/2021 81 >=60 mL/min/1.73m Final Comment: Estimated Glomerular Filtration Rate (eGFR) is calculated using the 2020 CKD-EPI creatinine equation. This equation utilizes serum creatinine, sex, and age as parameters. The creatinine assay has traceable calibration to isotope dilution- mass spectrometry. Refer to KDIGO guidelines for clinical interpretation. In patients with unstable renal function, e.g. those with acute kidney injury, the eGFRmay not accurately reflect actual GFR. eGFR- Date Value Ref Range Status 11/06/2019 >60 Final P.O.C.T. RESULTS: N/A September 02, 2021 TREATMENT: No Hydration needed. IV SITE: Ambulatory: A peripheral IV was started in the Right antecubital site with a Angio cath: 20 gauge. and A Saline lock was inserted per protocol IV SITE APPEARANCE: Clean,Dry and Intact SIGNATURE: Dorothea Ron RN PATIENT NAME: Yefri Yanez DATE: September 02, 2021 TIME: 3:24 PM documented in this encounterHenry County Hospital06-28-2022 History of Present illness Narrative* Daksha Melo PA-C - 09/02/2021 2:05 PM EDT [facility] [place] ([facility]) REQUESTING PROVIDER: Godfrey Ohara CNP INDENTIFICATION: Yefri Yanez is a 56 year old male with metastatic renal cell cancer. Current treatment: clinical trial with Nivolumab 480mg IV + Cabozantinib 40mg PO daily (Cabozantinib has been held since 08/18 due to concerns for elevated BP) Date of last treatment: 08/08/21 REASON FOR VISIT / CHIEF COMPLAINT: SOB HPI: Yefri Yanez is a 56 year old male who presents with 1 week of Dyspnea/SOB requiring increaseduse of Albuterol inhaler with minimal improvement. SOB present at rest and significantly limiting ADLs, unable to sleep, has to lay on his left side, cannot breath well laying prone, supine, or on right side. Feels tightness across the upper chest as well. Dry cough present. Appetite decreased, eating infrequently. No sick contacts. No COVID symptoms. Denies fevers/chills, night sweats, dizziness/lightheadedness, abdominal pain, n/v, changes in bowel/bladder function, bleeding/bruising,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 triamterene-hydrochlorothiazide (DYAZIDE) 37.5-25 mg per capsule Take 1 capsule by mouth once daily. HTN 2018 amLODIPine (NORVASC) 5 mg tablet Take 1 tablet by mouth once daily. HTN 2018 lovastatin (MEVACOR) 20 mg tablet Take 1 tablet by mouth daily with dinner. HLD 2019 tiZANidine (ZANAFLEX) 4 mg tablet Take 1 tablet by mouth every 8 hours as needed. Back pain 01/2021 MULTIVITAMIN TAB Take one(1) tablet daily. General Health 2018 Baseline Complaints per CTCAE v. 5: All predate therapy, are chronic conditions and will not be actively followed unless they worsen during the clinical trial. Hypertension Grade 2 Start date: 2017 Action required: Medication and cardiology consult Hyperlipidemia Grade 2 Start date: 2019 Action required: Medication Muscle Cramp Grade 1 Start date: 01/2021 Action required: Medication Heart failure Grade 1 Start date: 07/2021 Action required: Other: cardiology consult Fatigue Grade 1 Start date: 06/2021 Action required: None Dyspnea Grade 1 Start date: 07/12/2021 Action required: None Paresthesia Grade 1 Start date: > 10 years Action required: None Hyperuricemia Grade 1 Start date: 07/21/2021 Action required: None Patient meets all criteria for study participation as confirmed with treating provider: Yes, Per Dr. Kenneth Chester Patient to RTC on 07/24/2021 for Day 1 of [facility] 1820 Study. Godfrey Ohara APRN.CNP documented in this encounterHenry County Hospital05-10-2022 [facility]-2022 [facility]Bl[facility]05-[facility]-2022 NoteBl[facility]05-[facility]-2022 NoteBl[facility]05-[facility]-2022 Note [facility] History of Present illness Narrative* Rahul Knight RN - 07/14/2021 4:38 PM EDT Clinical Trial Informed Consent IRB# [id number] Title: Cyto-KIK; TRIAL (CYTO reductive surgery in Kidney cancer plus Immunotherapy (nivolumab) and targeted Kinase inhibition (cabozantinib) Patient seen today to obtain clinical trial informed consent. Patient states he/she has read the consent. Treatment plan, including all testing, potential risks/benefits, side effects and management,treatment alternatives, and follow- up were explained. Roles of the clinical trial personnel to be involved and the financial responsibilities of the patient regarding procedures and medications were discussed. The patient verbalized understanding of the importance of effective contraception use during and following completion of active therapy for 6 month(s) and agrees to the following methods: Male Condom and no sperm donation. Patient verified that he/she is not participating in any additional interventional clinical trials. The patient meets study criteria for life expectancy as discussed with Dr. Kenneth Chester MD [place]-- . All study related questions have been addressed or answered at this time. Contact information for research nurse and [employer] fellow on-call for after hours contact given to patient. Patient verbalizes understanding of all aforementioned information and voluntarily agrees to proceed with this clinical trial. Consent willingly signed by patient and consenting nurse. Patient given copy of signed informed consent. Time: 1530 Godfrey Ohara APRN, CNP Chris Morris, BSN, RN * Godfrey Ohara APRN.CNP - 07/14/2021 3:55 PM EDT Saw patient today for RN consent visit for [facility] 1820. Wrote for Ativan 1 mg as needed prior to MRI Kidney and MRI brain. Godfrey Ohara APRN.CNP Research SCOTT documented in this encounterHenry [facility] Hospital05-09-2022 Nurse Note* Ariadne Wood RN - 07/14/2021 2:41 PM EDT Additional intake questions: Has the patient had fever, nausea, vomiting, diarrhea, constipation, fatigue for > 1 week? Yes, fatigue Does the patient have a decreased appetite? No Does patient want to see a Electrotype Servicer? No (yes to any of above refer patient to schedulers for dietitian appointment) ) Does patient have any new or increased numbness or tingling of extremities? No Is patient interested in fertility information? No Does patient need any prescription refills? No Does patient have an advanced directive in place? No, Patient referred to [facility] documented in this encounterHenry County Hospital05-06-2022 Miscellaneous Notes* Telephone Encounter - Godfrey Clayton RN - 07/11/2021 4:28 PM EDT Cyto-KIK; TRIAL (CYTO reductive surgery in Kidney cancer plus Immunotherapy (nivolumab) and targeted Kinase inhibition (cabozantinib) This nurse called spouse, Primo, to inform her of patients upcoming appointment date, time and location. Encouraged spouse to call with any questions or concerns. Spouse verbalized understanding. Godfrey Clayton RN documented in this encounterHenry County Hospital05-06-2022 Miscellaneous Notes* Telephone Encounter - Godfrey Clayton RN - 07/11/2021 2:54 PM EDT Cyto-KIK; TRIAL (CYTO reductive surgery in Kidney cancer plus Immunotherapy (nivolumab) and targeted Kinase inhibition (cabozantinib) Patient of spouse, Primo, called this nurse regarding above mentioned trial. Reviewed consent and answered any questions Primo had regarding trial. Primo verbalized that patient is interested in proceeding with trial and would like to come in to sign consent. Informed spouse that this nurse would call when patient is scheduled for screening. Spouse verbalized understanding. Godfrey Clayton RN documented in this encounterHenry County Hospital05-03-2022 [facility]05-03[facility] History of Present illness Narrative* Godfrey Clayton RN - 07/08/2021 3:51 PM EDT Informed Consent Presentation IRB# [id number] Title: [facility] 1820, Cyto-KIK; TRIAL (CYTO reductive surgery in Kidney cancer plus Immunotherapy (nivolumab) and targeted Kinase inhibition (cabozantinib) Consent expiration date 01/10/2022 Spoke with patient at the request of Dr. Kenneth Chester MD [place]-- . Treatment plan, including all testing, potential risks/benefits, side effects and management, treatment alternatives, and follow-up explained. Roles of the clinical trial personnel to be involved and the financial responsibilities regarding procedures and medications were discussed. Discussed the importance of effective contraception during and following completion of active therapy for 6 month(s). Initial questions were answered and a copy of the informed consent was given to patient with the instructions to read it and call with any additional questions. Contact information for the research nurse was given to the patient. The patient verbalized appropriate understanding of all the aforementioned information presented. Patient unsure if Dr. Chester is within network for his insurance. Financial navigator number provided to patient to look into options. Patient stated he will speak with his this 07/11/2021, and contact this nurse with any questions and/or if interested in trial. Time of Presentation: 1500 Godfrey Clayton RN documented in this encounterHenry County Hospital05-02-2022 Miscellaneous Notes* Telephone Encounter - Godfrey Clayton RN - 07/07/2021 9:59 AM EDT Cyto-KIK; TRIAL (CYTO reductive surgery in Kidney cancer plus Immunotherapy (nivolumab) and targeted Kinase inhibition (cabozantinib) Spoke with patient regarding the above mentioned trial. Initial consent presented by Dr. Kenneth Chester on 07/02/2021. Answered any questions patient had regarding study. Patient denies having a copyof the consent. Confirmed patient's address and instructed patient that a copy of the consent will be sent in the mail today. Instructed patient that this nurse will follow up with patient on 07/09/21, to review the consent in more detail. Provided patient with this nurse's direct phone number to call if any other questions or concerns arise. Patient verbalized understanding. Godfrey Clayton RN documented in this encounterHenry County Hospital04-27-2022 [facility] History of Present illness Narrative* Kenneth Chester MD - 07/02/2021 12:00 PM EDT Images from the original note were not included. [facility] Initial History and Physical Exam Oncology Clinic Patient name: Yefri Yanez : 1965 Date of Service: July 02, 2021 PCP: Jillian Maurer DO Referring Provider: Adriana Hodge MD. SUBJECTIVE CHIEF COMPLAINT: RCC HPI: This is a 56 year old male who is referred by Adriana Hodge MD for evaluation of RCC. Final recommendations will be communicated back to the requesting physician by way of the shared medical record, or letter to requesting physician via US mail. 06/2021: Presented with syncopal episode. Imaging concerning for R renal mass and rib (R 5th) soft tissue lesion 06/27/21: 7.4cm R renal mass and L4 destructive soft tissue mass 06/30/21: Bone scan showed focal increased tracer uptake are demonstrated in the L4, right lateral sixth rib. 07/01/21: Biopsy of R chest wall mass. Feeling well overall. No fevers, chills, night sweats, weight loss, headache, chest pain, shortnessof breath, abdominal pain, constipation, diarrhea, dysuria. 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 OBJECTIVE PHYSICAL EXAM: BP 150/89 Pulse 71 Resp 20 SpO2 98% GEN: no acute distress, well-appearing HEENT: atraumatic, normocephalic, extraocular movements are intact. NECK: Supple, no JVD. LYMPH: No cervical or axillary adenopathy SKIN: skin color, texture, turgor normal, no suspicious rashes or lesions. LUNGS: Clear MARIBEL. No wheezes. CV: Normal rate. Regular rhythm. Normal s1/s2. ABD: Soft, non-tender, non-distended. EXT: No gross deformities. No obvious edema NEURO: Grossly intact. No focal deficits. HEME: No signs of easy bruising PSYCH: Normal mood and affect ECOG / Karnofsky: 0/100% DATA: Component Latest Ref Rng & Units 06/20/2021 WBC 3.70 - 11.00 k/uL 6.70 RBC 4.20 - 6.00 m/uL 5.30 Hemoglobin 13.0 - 17.0 g/dL 15.6 Hematocrit 39.0 - 51.0 % 48.7 MCV 80.0 - 100.0 fL 91.9 MCH 26.0 - 34.0 pg 29.4 MCHC 30.5 - 36.0 g/dL 32.0 RDW-CV 11.5 - 15.0 % 14.8 Platelet Count 150 - 400 k/uL 268 MPV 9.0 - 12.7 fL 11.0 Neut% % 64.8 Abs Neut (ANC) 1.45 - 7.50 k/uL 4.34 Lymph% % 26.6 Abs Lymph 1.00 - 4.00 k/uL 1.78 Barrow% % 7.6 Abs Barrow <0.87 k/uL 0.51 Eosin% % 0.3 Abs Eosin <0.46 k/uL <0.03 Baso% % 0.4 Abs Baso <0.11 k/uL 0.03 Immature Gran % % 0.3 IMMATURE GRANS (ABS) <0.10 k/uL <0.03 NRBC /100 WBC 0.0 Absolute nRBC <0.01 k/uL <0.01 DTYPE Auto Protein, Total 6.3 - 8.0 g/dL 7.3 Albumin 3.9 - 4.9 g/dL 4.2 Calcium 8.5 - 10.2 mg/dL 9.8 Bilirubin, Total 0.2 - 1.3 mg/dL 0.5 Alkaline Phosphatase 38 - 113 U/L 52 AST 14 - 40 U/L 18 ALT 10 - 54 U/L 17 Glucose 74 - 99 mg/dL 87 BUN 9 - 24 mg/dL 12 Creatinine 0.73 - 1.22 mg/dL 1.12 Sodium 136 - 144 mmol/L 141 Potassium 3.7 - 5.1 mmol/L 3.8 Chloride 97 - 105 mmol/L 101 CO2 22 - 30 mmol/L 28 Anion Gap 9 - 18 mmol/L 12 eGFR >=60 mL/min/1.73m 77 CT abd/pel 06/27/21 7.4 cm right renal mass as described. 6.8 cm bony destructive soft tissue mass involving the L4 posterior elements extending into the spinal canal. No lymphadenopathy. 3.7 cm infrarenal abdominal aortic aneurysm. 2.2 cm bilateral common iliac artery aneurysms. Bone scan 06/30/21 METASTATIC LESIONS IN THE BONE DESCRIBED. LIKELY CHRONIC DJD DESCRIBED. ASSESSMENT AND PLAN Mr. Yefri Yanez is a 56 year old male found in 06/2021 to have a R renal mass, R rib lesion, and L4 lesion. Long discussion with patient and that this is likely mRCC but we await yesterday's biopsy. We also spoke about treatment paradigms and strategies such as CUMC trial with cabo/nivo followed by nephrectomy. Will await biopsy prior to discussing next steps. Patient has our office contact information and knows how to reach us at any time with questions/concerns or if clinical condition changes. Kenneth Chester MD MA Associate Staff [facility] [place] July 02, 2021 CC: Adriana Hodge MD documented in this encounterHenry County Hospital04-27-2022 Nurse Note* Ariadne Wood RN - 07/02/2021 11:52 AM EDT Additional intake questions: Has the patient had fever, nausea, vomiting, diarrhea, constipation, fatigue for > 1 week? No Does the patient have a decreased appetite? No Does patient want to see a Electrotype Servicer? No (yes to any of above refer patient to schedulers for dietitian appointment) ) Does patient have any new or increased numbness or tingling of extremities? No Is patient interested in fertility information? No Does patient need any prescription refills? No Does patient have an advanced directive in place? No, Patient referred to [facility] documented in this encounterHenry County Hospital04-26-2022 [facility]Bl[facility]Bl[facility] History of Present illness Narrative* RT Dimas(R) - 06/30/2021 7:45 AM EDT RADIOLOGY SERVICE PROGRESS NOTE SERVICE DATE: 06/30/2021 SERVICE TIME: 7:45 AM PATIENT IDENTITY VERIFICATION COMPLETED USING TWO (2) STANDARD IDENTIFIERS: Name and Date of confirmed by patient verbally FALL SCREENING: Has the patient had 2 falls in the last year or 1 fall with injury or currently using an Ambulatory Assistive Device (Walker, Cane, Wheelchair, Crutches, etc.)? No ALLERGIES: Reviewed and unchanged MEDICATIONS REVIEWED: Yes IV SITE: Ambulatory: A peripheral IV was started in the Right antecubital site with a Angio cath: 22 gauge. POST EXAM PIV STATUS: Discontinued PROCEDURE TYPE: NM INJECT: Whole Body Bone Scan. 21.0 mCi Tc99m MDP. No other medications given. ADMINISTRATION TIME: 725 PATIENT DISCHARGED TO: Ambulatory patient, left NM department area. A Diagnostic radioactive procedure has taken place, with no further precautions necessary other than routine body substance precautions. More information regarding radiation safety can be found usingthis link: [email or web address] SIGNATURE: RT Dimas(Damion) PATIENT NAME: Yefri Yanez DATE: June 30, 2021 TIME: 7:45 AM PAGER/CONTACT #: [phone] documented in this encounterHenry County Hospital04-22-2022 [facility]Bl[facility]04-[facility] History of Present illness Narrative* RT Kailee(R) - 06/27/2021 3:00 PM EDT Radiology Service Progress Note DATE OF SERVICE: June 27, 2021 TIME: 1:57 PM PATIENT IDENTITY VERIFICATION COMPLETED USING TWO (2) STANDARD IDENTIFIERS: Name and Date of confirmed by patient verbally and Name and Date of confirmed by identification band. FALL SCREENING: Has the patient had 2 falls in the last year or 1 fall with injury or currently using an Ambulatory Assistive Device (Walker, Cane, Wheelchair, Crutches, etc.)? No PATIENT GENDER DATA: Male PATIENT RELEVANT IMPLANT DATA REVIEWED: Not Applicable ALLERGIES: Reviewed and unchanged CONTRAST ALLERGY: NO. EXAM: CT -CONTRAST INDUCED NEPHROPATHY RISK FACTORS: Not applicable CREATININE: Creatinine Date Value Ref Range Status 06/20/2021 1.12 0.73 - 1.22 mg/dL Final 11/06/2019 1.10 0.73 - 1.22 mg/dL Final 10/10/2018 1.14 0.73 - 1.22 mg/dL Final Estimated Glomerular Filtration Rate Date Value Ref Range Status 06/20/2021 77 >=60 mL/min/1.73m Final Comment: Estimated Glomerular Filtration Rate (eGFR) is calculated using the 2020 CKD-EPI creatinine equation. This equation utilizes serum creatinine, sex, and age as parameters. The creatinine assay has traceable calibration to isotope dilution- mass spectrometry. Refer to KDIGO guidelines for clinical interpretation. In patients with unstable renal function, e.g. those with acute kidney injury, the eGFRmay not accurately reflect actual GFR. eGFR- Date Value Ref Range Status 11/06/2019 >60 Final P.O.C.T. RESULTS: N/A June 27, 2021 TREATMENT: N/A PERIPHERAL IV DATA: Ambulatory: A peripheral IV was started in the Right antecubital site with a Angio cath: 22 gauge. RADIOLOGY DEPARTMENT: CT; Exam(s) Completed: Abdomen/Pelvis SIGNATURE: RT Kailee(R) PATIENT NAME: Yefri Yanez DATE: June 27, 2021 TIME: 1:57 PM documented in this encounterHenry County Hospital04-19-2022 Miscellaneous Notes* Telephone Encounter - John Gtz MD - 06/24/2021 8:32 AM EDT .. RADIOLOGIST REQUEST / APPROVAL FORM STAFF RADIOLOGIST:Tresa/Manjit PROCEDURE TO BE DONE UNDER: CT PROCEDURE REQUESTED: CORE Requested PROCEDURE: Approved TIME SLOT NEEDED: 1 Hour NOTES: 93 x 62 mm lytic right chest wall soft tissue mass SPECIAL LABS/ PROCESSING: Routine Pre-procedure labs: CBC: not needed Platelets 268 K on 06/20/2021 INR: ordered COVID: not needed SIR Bleeding risk category for this procedure: low risk. Reference from [facility] Affirmative Action Officer: [email or web address] STAFF SIGNATURE: John Gtz MD DATE: June 24, 2021 TIME: 8:32 AM * Telephone Encounter - Yandy Muñoz RN - 06/23/2021 4:44 PM EDT BX. COORDINATOR INFORMATION LAB RESULTS: No results found for: INR No results found for: APTT Platelet Count (k/uL) Date Value 06/20/2021 268 11/06/2019 288 Current Outpatient Medications Medication Sig potassium chloride (KLOR-CON) 20 mEq packet Potassium Chloride* ([id number]) 20 MEQ PACKET Active 20 MEQ PO ibuprofen (MOTRIN) 800 mg tablet cetirizine (ZYRTEC) 5 mg tablet Take 10 mg by mouth. iv contrast (will be provided with radiology test) CT ABD/PEL -Inject, intravenously, once for 1 dose.No IV access, insert saline lock prior to the beginning of sedation, infusion, injection of imaging exam. Discontinue saline lock post exam. If Pt. has a central line or IVAD, may access for administration according to line specific nursing protocol. Once exam is complete flush line and de-accessaccording to line specific nursing protocol in the CT contrast administration guidelines link. pantoprazole DR (PROTONIX) 40 mg tablet Take 1 tablet by mouth once daily. atenolol (TENORMIN) 100 mg tablet Take 1 tablet by mouth once daily. triamterene-hydrochlorothiazide (DYAZIDE) 37.5-25 mg per capsule Take 1 capsule by mouth once daily. amLODIPine (NORVASC) 5 mg tablet Take 1 tablet by mouth once daily. lovastatin (MEVACOR) 20 mg tablet Take 1 tablet by mouth daily with dinner. etodolac (LODINE) 400 mg tablet Take 1 tablet by mouth once daily as needed (Lower back pain). tiZANidine (ZANAFLEX) 4 mg tablet Take 1 tablet by mouth every 8 hours as needed. MULTIVITAMIN TAB Take one(1) tablet daily. No current facility-administered medications for this visit. ALLERGIES Allergen Reactions Lisinopril Angioedema Shellfish Containin* Anaphylaxis, Hives Aspirin Intolerance Penicillins Intolerance GUIDELINES FOR HOLDING ANTI-PLATELET AND ANTI- COAGULATION THERAPY: none on file NURSE SIGNATURE: Yandy Muñoz RN DATE: June 23, 2021 TIME: 4:44 PM * Telephone Encounter - Irma Nathan - 06/23/2021 4:26 PM EDT RADIOLOGY CALL CENTER INTAKE ROLL UP OPERATOR: IRMA EVANS EXT: [id number] DATE: 06/23/2021 TIME: 4:27PM TRACKING #. [id number] REQUESTING PERSON: LILIAM PHONE/PAGER: [phone] REQUESTING STAFF: Adriana Hodge MD PHONE/PAGER: [phone] SPECIFICS OF THE REQUEST: (Please be as detailed as possible. If request is lymph node biopsy, specify LOCATION of the node if possible): IMAGING GUIDED BIOPSY RIB/BONY PELVIS/STERNUM/SPINOUS PROCESSRT CHEST WALL MASS (For example: biopsy liver mass or biopsy pelvic lymph node ) SPECIAL REQUESTS: TISSUE SAMPLE, LABWORK: N/A -Fine needle aspiration (FNA), core biopsy, no preference, unsure, specific processing request for pathology (For example: send for ER, SC, HER2/silas or possible lymphoma send in RPMI solution ) IS THIS REQUEST PART OF A RESEARCH PROTOCOL: No IF YES: List specifics of request and name/contact number of research coordinator and primary physician. MEDICAL DIAGNOSIS: Malignant neoplasm of kidney, unspecified laterality (HCC) [C64.9] Malignant neoplasm of kidney excluding renal pelvis, unspecified laterality (HCC) [C64.9] (For example: history of breast cancer with liver mass or history of lymphoma ) TYPE AND DATE OF THE EXAM THAT IS THE BASIS OF THE REQUEST: CT Date: 06/19/2021 (Note: Requests for random organ biopsies, specifically liver and kidney random biopsies do not need imaging. ALL OTHER CASES NEED IMAGING TO EVALUATE APPROPRIATENESS/FEASIBILITY OF THE REQUEST) IMAGING: OUTSIDE [facility] Films: Where is study now: UPLOADED IN PATIENTS CHART (If the imaging was obtained outside the [facility] system, then it needs to be submitted for review prior to approval.) Note to all persons requesting biopsies: All biopsy requests will be scheduled as quickly as possible, based on the clinical urgency, availability of appointment times, the need to hold anti-thrombolytic therapy (aspirin, blood thinners) and the patient s schedule, including the need for an available special needs bus driver. If a percutaneous biopsy or drainage is not felt to be safe or an alternative method for establishing a diagnosis is possible, this will be discussed directly with the requesting physician. documented in this encounterHenry County Hospital04-18-2022 Miscellaneous Notes* Addendum Note - Adriana Hodge MD - 06/23/2021 1:52 PM EDT Addended by: ADRIANA HODGE on: 06/23/2021 01:52 PM Modules accepted: Orders documented in this encounterHenry County Hospital04-18-2022 [facility] History of Present illness Narrative* Adriana Hodge MD - 06/23/2021 11:00 AM EDT New patient or consult Date: 06/23/21 56 year old, male Referred by: CC: New Dx R renal mass with lytic R rib lesion HPI: Recent ER visit 06/19/[address] Chest/PE w/ 5.4 x 7.1 right upper pole renal mass with right 5th rib mass/lytic lesion This showed no PE PMHx NIMCO on CPAP, HTN, GERD, HLD, pre-DM (A1c low 6%) PSHx no surgeries No AC BMI 35.37 Everyday cigar smoker (40 yr) 10/25 PSA 0.66, 06/27 Scr 1.12, eGFR 77. cbc and cmp fine, Hg 15.6 No night sweats, fevers, chills, or unintentional weight loss. 6 month hx of right rib pain/soreness he felt was d/t a pulled muscle Disease Specificity: Acuity: Chronic Anatomic Site: Kidney, Laterality: Right Underlying Condition/Causal Agent: Primary Secondary Associated Conditions/Manifestations: Renal mass R R lytic R rib lesion Voiding history: Current meds for prostate: none OVS: none FOS strong NF no Intermittency: None IVS: no DF: 1-2x Urgency none Hematuria: none Incontinence: none GUROS: Hx stone disease: none Hx UTI: none Hx STD: none Erectile function: strong Bowel movements: normal PAST MEDICAL HISTORY Diagnosis Date Convulsions 1 seizure age 10, no cause Hypertension Sleep apnea PAST SURGICAL HISTORY Procedure Laterality Date NONE Current Outpatient Medications Medication Sig potassium chloride (K-TAB) 10 mEq tablet Take 1 tablet by mouth once daily. pantoprazole DR (PROTONIX) 40 mg tablet Take 1 tablet by mouth once daily. atenolol (TENORMIN) 100 mg tablet Take 1 tablet by mouth once daily. triamterene-hydrochlorothiazide (DYAZIDE) 37.5-25 mg per capsule Take 1 capsule by mouth once daily. amLODIPine (NORVASC) 5 mg tablet Take 1 tablet by mouth once daily. lovastatin (MEVACOR) 20 mg tablet Take 1 tablet by mouth daily with dinner. etodolac (LODINE) 400 mg tablet Take 1 tablet by mouth once daily as needed (Lower back pain). tiZANidine (ZANAFLEX) 4 mg tablet Take 1 tablet by mouth every 8 hours as needed. MULTIVITAMIN TAB Take one(1) tablet daily. No current facility-administered medications for this visit. 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 Residence:[place] Review of Systems: No CP, No SOB, no CVA, no TIA, No RI No claudication Skin: Rash: denies Lump or mass: denies HEENT: Problems with hearing: denies Double vision or blurred vision: denies Difficulty swallowing: denies Neck: Mass or LN enlargement: denies Pain: denies Chest: SOB: denies Cough: denies Coughing blood: denies Hx pneumonia: denies CVS: Dyspnea on exertion: denies Chest pain: denies Palpitations: denies Hx heart disease, valvular disease: denies Hx RI: denies GI: Nausea or vomiting: denies Abd pain: denies Severe constipation or change bowel habits: denies Diarrhea: denies Hematochezia or melena: denies Vomiting blood: denies Neurologic: Seizures: denies Focal weakness: denies Focal loss of sensation: denies Aphasia: denies Hx Neurologic disorder: denies Bones: Bone pain that is persistent and progressive in intensity: denies Hx arthritis: denies Hx bone disorder: denies PHYSICAL EXAM: Yes There were no vitals taken for this visit. General Appearance/ Constitutional: Well developed, well nourished, and in no apparent distress HEENT: Normal Neck: Thyroid: Normal Lymph Nodes: Normal Cardiac: Normal Breast: Normal Pulmonary: Ascultation: Not examined Effort: Normal GI: Normal, Soft, Benign and Non-tender Peripheral Vascular: Radial intact, bilaterally intact bilaterally Extremities: Cyanosis absent Skin: Normal Neurologic: Grossly non-focal : (MALE) Penis: Normal without external lesions Meatus: Normal Testicles: Normal Cord/Epididymis:Normal Vas Deferens: Normal Scrotum: Normal Anus/Perineum: Not examined Rectum/Tone: Not examined Prostate: Not examined UA: A/P: I saw and examined in detail, and discussed with resident, and agree with essential components of Hx, PE and A/P. Briefly, Recent ER visit 06/19/[address] Chest/PE w/ 5.4 x 7.1 right upper pole renal mass with right 5th rib mass/lytic lesion This showed no PE PMHx NIMCO on CPAP, HTN, GERD, HLD, pre-DM (A1c low 6%) PSHx no surgeries No AC BMI 35.37 Everyday cigar smoker (40 yr) 10/25 PSA 0.66, 06/27 Scr 1.12, eGFR 77. cbc and cmp fine, Hg 15.6 No night sweats, fevers, chills, or unintentional weight loss. 6 month hx of right rib pain/soreness he felt was d/t a pulled muscle SUMMARY: 56 y/o M current smoker with incidentally found large right renal mass likely renal cancerw metastatic lesion to right rib. Plan I spent a total of 45 minutes on the date of the service which included preparing to see the patient, [id number] patient care, completing clinical documentation and counseling and educating the patient/family/caregiver. Plan Rev CT chest, has 10 x 6 cm mass along R side of rib cage CT A/P w w/o IV contrast, this wewek if possible BS this week I fpossible Read of CT chest with [facility] radiology, and consider for bx of the mass Med onc referral Scribe Attestation: By signing my name below, I, Renan Burr, attest that this documentation has been prepared under the direction and in the presence of Dr. Adriana Hodge MD. Electronically Signed:gabrielle Rader, June 23, 2021 9:56 AM Provider Attestation: I, Adriana Hodge MD, personally performed the services described in this documentation. All medical record entries made by the scribe were at my direction and in my presence. I have reviewed thechart and discharge instructions (if applicable) and agree that the record reflects my personal perf ormance and is accurate and complete. Adriana Hodge MD June 23, 2021 11:36 AM [facility] Miscellaneous Notes* Telephone Encounter - Dawit Urbina MD - 06/23/2021 8:48 AM EDT Spoke with Patient ID by Relayed to patient CBC and CMP without concern. Patient aware to follow up with Dr. Hodge at 11:00 AM today. Dawit Urbina MD documented in [facility] illness Narrative* Problem Noted Date Resolved Date Essential hypertension, benign 06/30/2004 0 03/12/2008 ROUTINE MEDICAL EXAM 06/30/2004 11/26/2014 CHEST PAIN NOS 06/30/2004 11/26/2014 documented as of this encounter (statuses as of 06/23/2021) [facility] History of Past illness Narrative* Problem Noted Date Resolved Date Essential hypertension, benign 06/30/2004 0 03/12/2008 ROUTINE MEDICAL EXAM 06/30/2004 11/26/2014 CHEST PAIN NOS 06/30/2004 11/26/2014 documented as of this encounter (statuses as of 06/23/2021) [address] History of Past illness Narrative* Problem Noted Date Resolved Date Essential hypertension, benign 06/30/2004 0 03/12/2008 ROUTINE MEDICAL EXAM 06/30/2004 11/26/2014 CHEST PAIN NOS 06/30/2004 11/26/2014 documented as of this encounter (statuses as of 06/24/2021) [address] History of Past illness Narrative* Problem Noted Date Resolved Date Essential hypertension, benign 06/30/2004 0 03/12/2008 ROUTINE MEDICAL EXAM 06/30/2004 11/26/2014 CHEST PAIN NOS 06/30/2004 11/26/2014 documented as of this encounter (statuses as of 06/26/2021) [address] History of Past illness Narrative* Problem Noted Date Resolved Date Essential hypertension, benign 06/30/2004 0 03/12/2008 ROUTINE MEDICAL EXAM 06/30/2004 11/26/2014 CHEST PAIN NOS 06/30/2004 11/26/2014 documented as of this encounter (statuses as of 06/28/2021) [address] History of Past illness Narrative* Problem Noted Date Resolved Date Essential hypertension, benign 06/30/2004 0 03/12/2008 ROUTINE MEDICAL EXAM 06/30/2004 11/26/2014 CHEST PAIN NOS 06/30/2004 11/26/2014 documented as of this encounter (statuses as of 06/28/2021) [address] History of Past illness Narrative* Problem Noted Date Resolved Date Essential hypertension, benign 06/30/2004 0 03/12/2008 ROUTINE MEDICAL EXAM 06/30/2004 11/26/2014 CHEST PAIN NOS 06/30/2004 11/26/2014 documented as of this encounter (statuses as of 07/01/2021) [address] History of Past illness Narrative* Problem Noted Date Resolved Date Essential hypertension, benign 06/30/2004 0 03/12/2008 ROUTINE MEDICAL EXAM 06/30/2004 11/26/2014 CHEST PAIN NOS 06/30/2004 11/26/2014 documented as of this encounter (statuses as of 07/01/2021) [address] History of Past illness Narrative* Problem Noted Date Resolved Date Essential hypertension, benign 06/30/2004 0 03/12/2008 ROUTINE MEDICAL EXAM 06/30/2004 11/26/2014 CHEST PAIN NOS 06/30/2004 11/26/2014 documented as of this encounter (statuses as of 07/04/2021) [address] History of Past illness Narrative* Problem Noted Date Resolved Date Essential hypertension, benign 06/30/2004 0 03/12/2008 ROUTINE MEDICAL EXAM 06/30/2004 11/26/2014 CHEST PAIN NOS 06/30/2004 11/26/2014 documented as of this encounter (statuses as of 07/07/2021) [address] History of Past illness Narrative* Problem Noted Date Resolved Date Essential hypertension, benign 06/30/2004 0 03/12/2008 ROUTINE MEDICAL EXAM 06/30/2004 11/26/2014 CHEST PAIN NOS 06/30/2004 11/26/2014 documented as of this encounter (statuses as of 07/08/2021) [address] History of Past illness Narrative* Problem Noted Date Resolved Date Essential hypertension, benign 06/30/2004 0 03/12/2008 ROUTINE MEDICAL EXAM 06/30/2004 11/26/2014 CHEST PAIN NOS 06/30/2004 11/26/2014 documented as of this encounter (statuses as of 07/11/2021) [address] History of Past illness Narrative* Problem Noted Date Resolved Date Essential hypertension, benign 06/30/2004 0 03/12/2008 ROUTINE MEDICAL EXAM 06/30/2004 11/26/2014 CHEST PAIN NOS 06/30/2004 11/26/2014 documented as of this encounter (statuses as of 07/11/2021) [address] History of Past illness Narrative* Problem Noted Date Resolved Date Essential hypertension, benign 06/30/2004 0 03/12/2008 ROUTINE MEDICAL EXAM 06/30/2004 11/26/2014 CHEST PAIN NOS 06/30/2004 11/26/2014 documented as of this encounter (statuses as of 07/11/2021) [address] History of Past illness Narrative* Problem Noted Date Resolved Date Essential hypertension, benign 06/30/2004 0 03/12/2008 ROUTINE MEDICAL EXAM 06/30/2004 11/26/2014 CHEST PAIN NOS 06/30/2004 11/26/2014 documented as of this encounter (statuses as of 07/14/2021) [address] History of Past illness Narrative* Problem Noted Date Resolved Date Essential hypertension, benign 06/30/2004 0 03/12/2008 ROUTINE MEDICAL EXAM 06/30/2004 11/26/2014 CHEST PAIN NOS 06/30/2004 11/26/2014 documented as of this encounter (statuses as of 07/15/2021) [address] History of Past illness Narrative* Problem Noted Date Resolved Date Essential hypertension, benign 06/30/2004 0 03/12/2008 ROUTINE MEDICAL EXAM 06/30/2004 11/26/2014 CHEST PAIN NOS 06/30/2004 11/26/2014 documented as of this encounter (statuses as of 07/15/2021) [address] History of Past illness Narrative* Problem Noted Date Resolved Date Essential hypertension, benign 06/30/2004 0 03/12/2008 ROUTINE MEDICAL EXAM 06/30/2004 11/26/2014 CHEST PAIN NOS 06/30/2004 11/26/2014 documented as of this encounter (statuses as of 07/21/2021) [address] History of Past illness Narrative* Problem Noted Date Resolved Date Essential hypertension, benign 06/30/2004 0 03/12/2008 ROUTINE MEDICAL EXAM 06/30/2004 11/26/2014 CHEST PAIN NOS 06/30/2004 11/26/2014 documented as of this encounter (statuses as of 07/21/2021) [address] History of Past illness Narrative* Problem Noted Date Resolved Date Essential hypertension, benign 06/30/2004 0 03/12/2008 ROUTINE MEDICAL EXAM 06/30/2004 11/26/2014 CHEST PAIN NOS 06/30/2004 11/26/2014 documented as of this encounter (statuses as of 07/21/2021) [address] History of Past illness Narrative* Problem Noted Date Resolved Date Essential hypertension, benign 06/30/2004 0 03/12/2008 ROUTINE MEDICAL EXAM 06/30/2004 11/26/2014 CHEST PAIN NOS 06/30/2004 11/26/2014 documented as of this encounter (statuses as of 07/22/2021) [address] History of Past illness Narrative* Problem Noted Date Resolved Date Essential hypertension, benign 06/30/2004 0 03/12/2008 ROUTINE MEDICAL EXAM 06/30/2004 11/26/2014 CHEST PAIN NOS 06/30/2004 11/26/2014 documented as of this encounter (statuses as of 07/22/2021) [address] History of Past illness Narrative* Problem Noted Date Resolved Date Essential hypertension, benign 06/30/2004 0 03/12/2008 ROUTINE MEDICAL EXAM 06/30/2004 11/26/2014 CHEST PAIN NOS 06/30/2004 11/26/2014 documented as of this encounter (statuses as of 07/23/2021) [address] History of Past illness Narrative* Problem Noted Date Resolved Date Essential hypertension, benign 06/30/2004 0 03/12/2008 ROUTINE MEDICAL EXAM 06/30/2004 11/26/2014 CHEST PAIN NOS 06/30/2004 11/26/2014 documented as of this encounter (statuses as of 07/24/2021) [address] History of Past illness Narrative* Problem Noted Date Resolved Date Essential hypertension, benign 06/30/2004 0 03/12/2008 ROUTINE MEDICAL EXAM 06/30/2004 11/26/2014 CHEST PAIN NOS 06/30/2004 11/26/2014 documented as of this encounter (statuses as of 07/24/2021) [address] History of Past illness Narrative* Problem Noted Date Resolved Date Essential hypertension, benign 06/30/2004 0 03/12/2008 ROUTINE MEDICAL EXAM 06/30/2004 11/26/2014 CHEST PAIN NOS 06/30/2004 11/26/2014 documented as of this encounter (statuses as of 07/25/2021) [address] History of Past illness Narrative* Problem Noted Date Resolved Date Essential hypertension, benign 06/30/2004 0 03/12/2008 ROUTINE MEDICAL EXAM 06/30/2004 11/26/2014 CHEST PAIN NOS 06/30/2004 11/26/2014 documented as of this encounter (statuses as of 07/25/2021) [address] History of Past illness Narrative* Problem Noted Date Resolved Date Essential hypertension, benign 06/30/2004 0 03/12/2008 ROUTINE MEDICAL EXAM 06/30/2004 11/26/2014 CHEST PAIN NOS 06/30/2004 11/26/2014 documented as of this encounter (statuses as of 07/28/2021) [place] [address] History of Past illness Narrative* Problem Noted Date Resolved Date Essential hypertension, benign 06/30/2004 0 03/12/2008 ROUTINE MEDICAL EXAM 06/30/2004 11/26/2014 CHEST PAIN NOS 06/30/2004 11/26/2014 documented as of this encounter (statuses as of 07/29/2021) [address] History of Past illness Narrative* Problem Noted Date Resolved Date Essential hypertension, benign 06/30/2004 0 03/12/2008 ROUTINE MEDICAL EXAM 06/30/2004 11/26/2014 CHEST PAIN NOS 06/30/2004 11/26/2014 documented as of this encounter (statuses as of 07/29/2021) [address] History of Past illness Narrative* Problem Noted Date Resolved Date Essential hypertension, benign 06/30/2004 0 03/12/2008 ROUTINE MEDICAL EXAM 06/30/2004 11/26/2014 CHEST PAIN NOS 06/30/2004 11/26/2014 documented as of this encounter (statuses as of 07/30/2021) [address] History of Past illness Narrative* Problem Noted Date Resolved Date Essential hypertension, benign 06/30/2004 0 03/12/2008 ROUTINE MEDICAL EXAM 06/30/2004 11/26/2014 CHEST PAIN NOS 06/30/2004 11/26/2014 documented as of this encounter (statuses as of 07/31/2021) [address] History of Past illness Narrative* Problem Noted Date Resolved Date Essential hypertension, benign 06/30/2004 0 03/12/2008 ROUTINE MEDICAL EXAM 06/30/2004 11/26/2014 CHEST PAIN NOS 06/30/2004 11/26/2014 documented as of this encounter (statuses as of 08/03/2021) [address] History of Past illness Narrative* Problem Noted Date Resolved Date Essential hypertension, benign 06/30/2004 0 03/12/2008 ROUTINE MEDICAL EXAM 06/30/2004 11/26/2014 CHEST PAIN NOS 06/30/2004 11/26/2014 documented as of this encounter (statuses as of 08/06/2021) [address] History of Past illness Narrative* Problem Noted Date Resolved Date Essential hypertension, benign 06/30/2004 0 03/12/2008 ROUTINE MEDICAL EXAM 06/30/2004 11/26/2014 CHEST PAIN NOS 06/30/2004 11/26/2014 documented as of this encounter (statuses as of 08/06/2021) [address] History of Past illness Narrative* Problem Noted Date Resolved Date Essential hypertension, benign 06/30/2004 0 03/12/2008 ROUTINE MEDICAL EXAM 06/30/2004 11/26/2014 CHEST PAIN NOS 06/30/2004 11/26/2014 documented as of this encounter (statuses as of 08/07/2021) [address] History of Past illness Narrative* Problem Noted Date Resolved Date Essential hypertension, benign 06/30/2004 0 03/12/2008 ROUTINE MEDICAL EXAM 06/30/2004 11/26/2014 CHEST PAIN NOS 06/30/2004 11/26/2014 documented as of this encounter (statuses as of 08/08/2021) [address] History of Past illness Narrative* Problem Noted Date Resolved Date Essential hypertension, benign 06/30/2004 0 03/12/2008 ROUTINE MEDICAL EXAM 06/30/2004 11/26/2014 CHEST PAIN NOS 06/30/2004 11/26/2014 documented as of this encounter (statuses as of 08/08/2021) [address] History of Past illness Narrative* Problem Noted Date Resolved Date Essential hypertension, benign 06/30/2004 0 03/12/2008 ROUTINE MEDICAL EXAM 06/30/2004 11/26/2014 CHEST PAIN NOS 06/30/2004 11/26/2014 documented as of this encounter (statuses as of 08/08/2021) [address] History of Past illness Narrative* Problem Noted Date Resolved Date Essential hypertension, benign 06/30/2004 0 03/12/2008 ROUTINE MEDICAL EXAM 06/30/2004 11/26/2014 CHEST PAIN NOS 06/30/2004 11/26/2014 documented as of this encounter (statuses as of 08/08/2021) [address] History of Past illness Narrative* Problem Noted Date Resolved Date Essential hypertension, benign 06/30/2004 0 03/12/2008 ROUTINE MEDICAL EXAM 06/30/2004 11/26/2014 CHEST PAIN NOS 06/30/2004 11/26/2014 documented as of this encounter (statuses as of 08/11/2021) [address] History of Past illness Narrative* Problem Noted Date Resolved Date Essential hypertension, benign 06/30/2004 0 03/12/2008 ROUTINE MEDICAL EXAM 06/30/2004 11/26/2014 CHEST PAIN NOS 06/30/2004 11/26/2014 documented as of this encounter (statuses as of 08/12/2021) [address] History of Past illness Narrative* Problem Noted Date Resolved Date Essential hypertension, benign 06/30/2004 0 03/12/2008 ROUTINE MEDICAL EXAM 06/30/2004 11/26/2014 CHEST PAIN NOS 06/30/2004 11/26/2014 documented as of this encounter (statuses as of 08/12/2021) [address] History of Past illness Narrative* Problem Noted Date Resolved Date Essential hypertension, benign 06/30/2004 0 03/12/2008 ROUTINE MEDICAL EXAM 06/30/2004 11/26/2014 CHEST PAIN NOS 06/30/2004 11/26/2014 documented as of this encounter (statuses as of 08/13/2021) [address] History of Past illness Narrative* Problem Noted Date Resolved Date Essential hypertension, benign 06/30/2004 0 03/12/2008 ROUTINE MEDICAL EXAM 06/30/2004 11/26/2014 CHEST PAIN NOS 06/30/2004 11/26/2014 documented as of this encounter (statuses as of 08/18/2021) [address] History of Past illness Narrative* Problem Noted Date Resolved Date Essential hypertension, benign 06/30/2004 0 03/12/2008 ROUTINE MEDICAL EXAM 06/30/2004 11/26/2014 CHEST PAIN NOS 06/30/2004 11/26/2014 documented as of this encounter (statuses as of 08/18/2021) [address] History of Past illness Narrative* Problem Noted Date Resolved Date Essential hypertension, benign 06/30/2004 0 03/12/2008 ROUTINE MEDICAL EXAM 06/30/2004 11/26/2014 CHEST PAIN NOS 06/30/2004 11/26/2014 documented as of this encounter (statuses as of 08/18/2021) [address] History of Past illness Narrative* Problem Noted Date Resolved Date Essential hypertension, benign 06/30/2004 0 03/12/2008 ROUTINE MEDICAL EXAM 06/30/2004 11/26/2014 CHEST PAIN NOS 06/30/2004 11/26/2014 documented as of this encounter (statuses as of 08/19/2021) [address] History of Past illness Narrative* Problem Noted Date Resolved Date Essential hypertension, benign 06/30/2004 0 03/12/2008 ROUTINE MEDICAL EXAM 06/30/2004 11/26/2014 CHEST PAIN NOS 06/30/2004 11/26/2014 documented as of this encounter (statuses as of 08/19/2021) [address] History of Past illness Narrative* Problem Noted Date Resolved Date Essential hypertension, benign 06/30/2004 0 03/12/2008 ROUTINE MEDICAL EXAM 06/30/2004 11/26/2014 CHEST PAIN NOS 06/30/2004 11/26/2014 documented as of this encounter (statuses as of 08/20/2021) [address] History of Past illness Narrative* Problem Noted Date Resolved Date Essential hypertension, benign 06/30/2004 0 03/12/2008 ROUTINE MEDICAL EXAM 06/30/2004 11/26/2014 CHEST PAIN NOS 06/30/2004 11/26/2014 documented as of this encounter (statuses as of 08/21/2021) [address] History of Past illness Narrative* Problem Noted Date Resolved Date Essential hypertension, benign 06/30/2004 0 03/12/2008 ROUTINE MEDICAL EXAM 06/30/2004 11/26/2014 CHEST PAIN NOS 06/30/2004 11/26/2014 documented as of this encounter (statuses as of 08/27/2021) [address] History of Past illness Narrative* Problem Noted Date Resolved Date Essential hypertension, benign 06/30/2004 0 03/12/2008 ROUTINE MEDICAL EXAM 06/30/2004 11/26/2014 CHEST PAIN NOS 06/30/2004 11/26/2014 documented as of this encounter (statuses as of 08/28/2021) [address] History of Past illness Narrative* Problem Noted Date Resolved Date Essential hypertension, benign 06/30/2004 0 03/12/2008 ROUTINE MEDICAL EXAM 06/30/2004 11/26/2014 CHEST PAIN NOS 06/30/2004 11/26/2014 documented as of this encounter (statuses as of 09/01/2021) [place] [address] History of Past illness Narrative* Problem Noted Date Resolved Date Essential hypertension, benign 06/30/2004 0 03/12/2008 ROUTINE MEDICAL EXAM 06/30/2004 11/26/2014 CHEST PAIN NOS 06/30/2004 11/26/2014 documented as of this encounter (statuses as of 09/02/2021) [address] History of Past illness Narrative* Problem Noted Date Resolved Date Essential hypertension, benign 06/30/2004 0 03/12/2008 ROUTINE MEDICAL EXAM 06/30/2004 11/26/2014 CHEST PAIN NOS 06/30/2004 11/26/2014 documented as of this encounter (statuses as of 09/03/2021) [address] History of Past illness Narrative* Problem Noted Date Resolved Date Essential hypertension, benign 06/30/2004 0 03/12/2008 ROUTINE MEDICAL EXAM 06/30/2004 11/26/2014 CHEST PAIN NOS 06/30/2004 11/26/2014 documented as of this encounter (statuses as of 09/03/2021) [address] History of Past illness Narrative* Problem Noted Date Resolved Date Essential hypertension, benign 06/30/2004 0 03/12/2008 ROUTINE MEDICAL EXAM 06/30/2004 11/26/2014 CHEST PAIN NOS 06/30/2004 11/26/2014 documented as of this encounter (statuses as of 09/03/2021) [address] History of Past illness Narrative* Problem Noted Date Resolved Date Essential hypertension, benign 06/30/2004 0 03/12/2008 ROUTINE MEDICAL EXAM 06/30/2004 11/26/2014 CHEST PAIN NOS 06/30/2004 11/26/2014 documented as of this encounter (statuses as of 09/11/2021) [address] History of Past illness Narrative* Problem Noted Date Resolved Date Essential hypertension, benign 06/30/2004 0 03/12/2008 ROUTINE MEDICAL EXAM 06/30/2004 11/26/2014 CHEST PAIN NOS 06/30/2004 11/26/2014 documented as of this encounter (statuses as of 09/11/2021) [address] History of Past illness Narrative* Problem Noted Date Resolved Date Essential hypertension, benign 06/30/2004 0 03/12/2008 ROUTINE MEDICAL EXAM 06/30/2004 11/26/2014 CHEST PAIN NOS 06/30/2004 11/26/2014 documented as of this encounter (statuses as of 09/16/2021) [address] History of Past illness Narrative* Problem Noted Date Resolved Date Essential hypertension, benign 06/30/2004 0 03/12/2008 ROUTINE MEDICAL EXAM 06/30/2004 11/26/2014 CHEST PAIN NOS 06/30/2004 11/26/2014 documented as of this encounter (statuses as of 09/17/2021) [address] History of Past illness Narrative* Problem Noted Date Resolved Date Essential hypertension, benign 06/30/2004 0 03/12/2008 ROUTINE MEDICAL EXAM 06/30/2004 11/26/2014 CHEST PAIN NOS 06/30/2004 11/26/2014 documented as of this encounter (statuses as of 09/19/2021) [address] History of Past illness Narrative* Problem Noted Date Resolved Date Essential hypertension, benign 06/30/2004 0 03/12/2008 ROUTINE MEDICAL EXAM 06/30/2004 11/26/2014 CHEST PAIN NOS 06/30/2004 11/26/2014 documented as of this encounter (statuses as of 09/22/2021) [address] History of Past illness Narrative* Problem Noted Date Resolved Date Essential hypertension, benign 06/30/2004 0 03/12/2008 ROUTINE MEDICAL EXAM 06/30/2004 11/26/2014 CHEST PAIN NOS 06/30/2004 11/26/2014 documented as of this encounter (statuses as of 09/29/2021) [address] History of Past illness Narrative* Problem Noted Date Resolved Date Essential hypertension, benign 06/30/2004 0 03/12/2008 ROUTINE MEDICAL EXAM 06/30/2004 11/26/2014 CHEST PAIN NOS 06/30/2004 11/26/2014 documented as of this encounter (statuses as of 09/29/2021) [address] History of Past illness Narrative* Problem Noted Date Resolved Date Essential hypertension, benign 06/30/2004 0 03/12/2008 ROUTINE MEDICAL EXAM 06/30/2004 11/26/2014 CHEST PAIN NOS 06/30/2004 11/26/2014 documented as of this encounter (statuses as of 09/29/2021) [address] History of Past illness Narrative* Problem Noted Date Resolved Date Essential hypertension, benign 06/30/2004 0 03/12/2008 ROUTINE MEDICAL EXAM 06/30/2004 11/26/2014 CHEST PAIN NOS 06/30/2004 11/26/2014 documented as of this encounter (statuses as of 10/09/2021) [address] History of Past illness Narrative* Problem Noted Date Resolved Date Essential hypertension, benign 06/30/2004 0 03/12/2008 ROUTINE MEDICAL EXAM 06/30/2004 11/26/2014 CHEST PAIN NOS 06/30/2004 11/26/2014 documented as of this encounter (statuses as of 10/13/2021) [address] History of Past illness Narrative* Problem Noted Date Resolved Date Essential hypertension, benign 06/30/2004 0 03/12/2008 ROUTINE MEDICAL EXAM 06/30/2004 11/26/2014 CHEST PAIN NOS 06/30/2004 11/26/2014 documented as of this encounter (statuses as of 10/14/2021) [address] History of Past illness Narrative* Problem Noted Date Resolved Date Essential hypertension, benign 06/30/2004 0 03/12/2008 ROUTINE MEDICAL EXAM 06/30/2004 11/26/2014 CHEST PAIN NOS 06/30/2004 11/26/2014 documented as of this encounter (statuses as of 10/21/2021) [address] History of Past illness Narrative* Problem Noted Date Resolved Date Essential hypertension, benign 06/30/2004 0 03/12/2008 ROUTINE MEDICAL EXAM 06/30/2004 11/26/2014 CHEST PAIN NOS 06/30/2004 11/26/2014 documented as of this encounter (statuses as of 10/21/2021) [address] History of Past illness Narrative* Problem Noted Date Resolved Date Essential hypertension, benign 06/30/2004 0 03/12/2008 ROUTINE MEDICAL EXAM 06/30/2004 11/26/2014 CHEST PAIN NOS 06/30/2004 11/26/2014 documented as of this encounter (statuses as of 10/27/2021) [address] History of Past illness Narrative* Problem Noted Date Resolved Date Essential hypertension, benign 06/30/2004 0 03/12/2008 ROUTINE MEDICAL EXAM 06/30/2004 11/26/2014 CHEST PAIN NOS 06/30/2004 11/26/2014 documented as of this encounter (statuses as of 10/27/2021) [address] History of Past illness Narrative* Problem Noted Date Resolved Date Essential hypertension, benign 06/30/2004 0 03/12/2008 ROUTINE MEDICAL EXAM 06/30/2004 11/26/2014 CHEST PAIN NOS 06/30/2004 11/26/2014 documented as of this encounter (statuses as of 11/03/2021) [address] History of Past illness Narrative* Problem Noted Date Resolved Date Essential hypertension, benign 06/30/2004 0 03/12/2008 ROUTINE MEDICAL EXAM 06/30/2004 11/26/2014 CHEST PAIN NOS 06/30/2004 11/26/2014 documented as of this encounter (statuses as of 11/04/2021) [address] History of Past illness Narrative* Problem Noted Date Resolved Date Essential hypertension, benign 06/30/2004 0 03/12/2008 ROUTINE MEDICAL EXAM 06/30/2004 11/26/2014 CHEST PAIN NOS 06/30/2004 11/26/2014 documented as of this encounter (statuses as of 11/06/2021) [address] History of Past illness Narrative* Problem Noted Date Resolved Date Essential hypertension, benign 06/30/2004 0 03/12/2008 ROUTINE MEDICAL EXAM 06/30/2004 11/26/2014 CHEST PAIN NOS 06/30/2004 11/26/2014 documented as of this encounter (statuses as of 11/17/2021) [address] History of Past illness Narrative* Problem Noted Date Resolved Date Essential hypertension, benign 06/30/2004 0 03/12/2008 ROUTINE MEDICAL EXAM 06/30/2004 11/26/2014 CHEST PAIN NOS 06/30/2004 11/26/2014 documented as of this encounter (statuses as of 11/19/2021) [address] History of Past illness Narrative* Problem Noted Date Resolved Date Essential hypertension, benign 06/30/2004 0 03/12/2008 ROUTINE MEDICAL EXAM 06/30/2004 11/26/2014 CHEST PAIN NOS 06/30/2004 11/26/2014 documented as of this encounter (statuses as of 11/21/2021) [address] History of Past illness Narrative* Problem Noted Date Resolved Date Essential hypertension, benign 06/30/2004 0 03/12/2008 ROUTINE MEDICAL EXAM 06/30/2004 11/26/2014 CHEST PAIN NOS 06/30/2004 11/26/2014 documented as of this encounter (statuses as of 11/21/2021) [address] History of Past illness Narrative* Problem Noted Date Resolved Date Essential hypertension, benign 06/30/2004 0 03/12/2008 ROUTINE MEDICAL EXAM 06/30/2004 11/26/2014 CHEST PAIN NOS 06/30/2004 11/26/2014 documented as of this encounter (statuses as of 11/25/2021) [address] History of Past illness Narrative* Problem Noted Date Resolved Date Essential hypertension, benign 06/30/2004 0 03/12/2008 ROUTINE MEDICAL EXAM 06/30/2004 11/26/2014 CHEST PAIN NOS 06/30/2004 11/26/2014 documented as of this encounter (statuses as of 11/29/2021) [address] History of Past illness Narrative* Problem Noted Date Resolved Date Essential hypertension, benign 06/30/2004 0 03/12/2008 ROUTINE MEDICAL EXAM 06/30/2004 11/26/2014 CHEST PAIN NOS 06/30/2004 11/26/2014 documented as of this encounter (statuses as of 12/09/2021) [address] History of Past illness Narrative* Problem Noted Date Resolved Date Essential hypertension, benign 06/30/2004 0 03/12/2008 ROUTINE MEDICAL EXAM 06/30/2004 11/26/2014 CHEST PAIN NOS 06/30/2004 11/26/2014 documented as of this encounter (statuses as of 12/17/2021) [address] History of Past illness Narrative* Problem Noted Date Resolved Date Essential hypertension, benign 06/30/2004 0 03/12/2008 ROUTINE MEDICAL EXAM 06/30/2004 11/26/2014 CHEST PAIN NOS 06/30/2004 11/26/2014 documented as of this encounter (statuses as of 12/27/2021) [address]2005 History of Past illness Narrative* Problem Noted Date Resolved Date Essential hypertension, benign 06/30/2004 0 03/12/2008 ROUTINE MEDICAL EXAM 06/30/2004 11/26/2014 CHEST PAIN NOS 06/30/2004 11/26/2014 documented as of this encounter (statuses as of 12/28/2021) [address] History of Past illness Narrative* Problem Noted Date Resolved Date Essential hypertension, benign 06/30/2004 0 03/12/2008 ROUTINE MEDICAL EXAM 06/30/2004 11/26/2014 CHEST PAIN NOS 06/30/2004 11/26/2014 documented as of this encounter (statuses as of 12/30/2021) [address] History of Past illness Narrative* Problem Noted Date Resolved Date Essential hypertension, benign 06/30/2004 0 03/12/2008 ROUTINE MEDICAL EXAM 06/30/2004 11/26/2014 CHEST PAIN NOS 06/30/2004 11/26/2014 documented as of this encounter (statuses as of 12/30/2021) [address] History of Past illness Narrative* Problem Noted Date Resolved Date Essential hypertension, benign 06/30/2004 0 03/12/2008 ROUTINE MEDICAL EXAM 06/30/2004 11/26/2014 CHEST PAIN NOS 06/30/2004 11/26/2014 documented as of this encounter (statuses as of 01/07/2022) [address] History of Past illness Narrative* Problem Noted Date Resolved Date Essential hypertension, benign 06/30/2004 0 03/12/2008 ROUTINE MEDICAL EXAM 06/30/2004 11/26/2014 CHEST PAIN NOS 06/30/2004 11/26/2014 documented as of this encounter (statuses as of 01/20/2022) [address] History of Past illness Narrative* Problem Noted Date Resolved Date Essential hypertension, benign 06/30/2004 0 03/12/2008 ROUTINE MEDICAL EXAM 06/30/2004 11/26/2014 CHEST PAIN NOS 06/30/2004 11/26/2014 documented as of this encounter (statuses as of 01/22/2022) [address] History of Past illness Narrative* Problem Noted Date Resolved Date Essential hypertension, benign 06/30/2004 0 03/12/2008 ROUTINE MEDICAL EXAM 06/30/2004 11/26/2014 CHEST PAIN NOS 06/30/2004 11/26/2014 documented as of this encounter (statuses as of 01/26/2022) [address] History of Past illness Narrative* Problem Noted Date Resolved Date Essential hypertension, benign 06/30/2004 0 03/12/2008 ROUTINE MEDICAL EXAM 06/30/2004 11/26/2014 CHEST PAIN NOS 06/30/2004 11/26/2014 documented as of this encounter (statuses as of 02/12/2022) [address] History of Past illness Narrative* Problem Noted Date Resolved Date Essential hypertension, benign 06/30/2004 0 03/12/2008 ROUTINE MEDICAL EXAM 06/30/2004 11/26/2014 CHEST PAIN NOS 06/30/2004 11/26/2014 documented as of this encounter (statuses as of 02/13/2022) [address] History of Past illness Narrative* Problem Noted Date Resolved Date Essential hypertension, benign 06/30/2004 0 03/12/2008 ROUTINE MEDICAL EXAM 06/30/2004 11/26/2014 CHEST PAIN NOS 06/30/2004 11/26/2014 documented as of this encounter (statuses as of 02/16/2022) [address] History of Past illness Narrative* Problem Noted Date Resolved Date Essential hypertension, benign 06/30/2004 0 03/12/2008 ROUTINE MEDICAL EXAM 06/30/2004 11/26/2014 CHEST PAIN NOS 06/30/2004 11/26/2014 documented as of this encounter (statuses as of 02/17/2022) [address] History of Past illness Narrative* Problem Noted Date Resolved Date Essential hypertension, benign 06/30/2004 0 03/12/2008 ROUTINE MEDICAL EXAM 06/30/2004 11/26/2014 CHEST PAIN NOS 06/30/2004 11/26/2014 documented as of this encounter (statuses as of 02/17/2022) [address] History of Past illness Narrative* Problem Noted Date Resolved Date Essential hypertension, benign 06/30/2004 0 03/12/2008 ROUTINE MEDICAL EXAM 06/30/2004 11/26/2014 CHEST PAIN NOS 06/30/2004 11/26/2014 documented as of this encounter (statuses as of 03/13/2022) [address] History of Past illness Narrative* Problem Noted Date Resolved Date Essential hypertension, benign 06/30/2004 0 03/12/2008 ROUTINE MEDICAL EXAM 06/30/2004 11/26/2014 CHEST PAIN NOS 06/30/2004 11/26/2014 documented as of this encounter (statuses as of 03/13/2022) [place] [address] History of Past illness Narrative* Problem Noted Date Resolved Date Essential hypertension, benign 06/30/2004 0 03/12/2008 ROUTINE MEDICAL EXAM 06/30/2004 11/26/2014 CHEST PAIN NOS 06/30/2004 11/26/2014 documented as of this encounter (statuses as of 03/17/2022) [address] History of Past illness Narrative* Problem Noted Date Resolved Date Essential hypertension, benign 06/30/2004 0 03/12/2008 ROUTINE MEDICAL EXAM 06/30/2004 11/26/2014 CHEST PAIN NOS 06/30/2004 11/26/2014 documented as of this encounter (statuses as of 03/17/2022) [place] [address] History of Past illness Narrative* Problem Noted Date Resolved Date Essential hypertension, benign 06/30/2004 0 03/12/2008 ROUTINE MEDICAL EXAM 06/30/2004 11/26/2014 CHEST PAIN NOS 06/30/2004 11/26/2014 documented as of this encounter (statuses as of 03/23/2022) [address] History of Past illness Narrative* Problem Noted Date Resolved Date Essential hypertension, benign 06/30/2004 0 03/12/2008 ROUTINE MEDICAL EXAM 06/30/2004 11/26/2014 CHEST PAIN NOS 06/30/2004 11/26/2014 documented as of this encounter (statuses as of 03/24/2022) [place] [address] History of Past illness Narrative* Problem Noted Date Resolved Date Essential hypertension, benign 06/30/2004 0 03/12/2008 ROUTINE MEDICAL EXAM 06/30/2004 11/26/2014 CHEST PAIN NOS 06/30/2004 11/26/2014 documented as of this encounter (statuses as of 03/25/2022) [address] History of Past illness Narrative* Problem Noted Date Resolved Date Essential hypertension, benign 06/30/2004 0 03/12/2008 ROUTINE MEDICAL EXAM 06/30/2004 11/26/2014 CHEST PAIN NOS 06/30/2004 11/26/2014 documented as of this encounter (statuses as of 03/27/2022) [facility]04-25-2005 History of Past illness Narrative* Problem Noted Date Resolved Date Essential hypertension, benign 06/30/2004 0 03/12/2008 ROUTINE MEDICAL EXAM 06/30/2004 11/26/2014 CHEST PAIN NOS 06/30/2004 11/26/2014 documented as of this encounter (statuses as of 04/02/2022) [facility]04-25-2005 History of Past illness Narrative* Problem Noted Date Resolved Date Essential hypertension, benign 06/30/2004 0 03/12/2008 ROUTINE MEDICAL EXAM 06/30/2004 11/26/2014 CHEST PAIN NOS 06/30/2004 11/26/2014 documented as of this encounter (statuses as of 04/09/2022) [facility] April 16, 2022 1:56pm Note Date/Time April 16, 2022 1 :41pm [facility] Medical Records Department [address] [place] [id number] Discharge Summary 04/16/22 1341 MR#: [id number] Acct: [id number] Name: YEFRI YANEZ Rep #:[id number] : 1965 57 From: Carol Chiu DO PCP: Dr. Jose Ramon Turner MD Status: ADM IN Location: [place] [id number] Providers Date of Admission: 04/13/22 Date of Discharge: 04/16/22 Primary Care Physician: Dr. Jose Ramon Turner MD Reason For Visit: ACUTE ON CHRONIC HEART FAILURE Diagnosis Discharge Diagnosis (1) Acute exacerbation of CHF (congestive heart failure): Status: Chronic Code(s): I50.9 - Heart failure, unspecified (2) Systolic CHF, acute: Status: Acute Code(s): I50.21 - Acute systolic (congestive) heart failure (3) Hypoxemia: Status: Acute Code(s): R09.02 - Hypoxemia (4) Elevated serum creatinine: Status: Acute Code(s): R79.89 - Other specified abnormal findings of blood chemistry (5) Elevated troponin I level: Status: Acute Code(s): R77.8 - Other specified abnormalities of plasma proteins Medications at Discharge Home Medications albuterol 90 mcg/actuation aerosol inhaler 90 mcg inhalation Q4H PRN PRN breathing 12/07/21 cabozantinib 20 mg tablet 20 mg PO DAILY 12/07/21 carvedilol 6.25 mg tablet 6.25 mg DAILY 12/07/21 cyclobenzaprine 10 mg tablet 10 mg PO TID PRN Spasms 12/07/21 ferrous sulfate 325 mg (65 mg iron) tablet 325 mg PO BID 12/07/21 pantoprazole 40 mg tablet,delayed release 40 mg PO DAILY 12/07/21 rosuvastatin 40 mg tablet 40 mg PO DAILY 12/07/21 spironolactone 25 mg tablet 12.5 mg PO DAILY 12/07/21 warfarin 10 mg tablet 7 mg PO DAILY Check with primary doctor 12/07/21 losartan 50 mg tablet 50 mg PO DAILY #60 tabs 12/09/21 bumetanide 2 mg tablet 2 mg PO BIDLX #60 tabs 04/16/22 Hospital Course Operations None Procedures 2-D Echocardiogram, EKG, Nuclear stress test and - (Chest x-ray) Summary of Care Provided Minutes Spent on Discharge: 37 Hospital Course: Mr. Yanez is a 57-year-old -Lithuanian male with a history of metastaticclear-cell carcinoma of the right kidney who is status post nephrectomy and radiation and now undergoing chemotherapy who presented to the emergency department at [facility] with a 2-week history of progressively worsening shortness of breath. He evidently went to his primary care physician's office where lab work was drawn and he was noted to have an elevated troponin. Given these findings he was sent to the emergency department. He complained of chest tightness and coughing along with the shortness of breath. He denied any noted weight changes or swelling. His nephrectomy was performed on February 06 of last year by Dr. Aravind Lopez at [facility]. He doeshave metastatic disease to the bone. He denied any fevers or chills on presentation. He reported the cough that he had been experiencing was chronic and that he also was noting dyspnea on exertion. His CBC was unremarkable otherthan mild chronic anemia on presentation. His serum creatinine was elevated at 1.9 on presentation and his BNP was found to be 699 with an initial troponin of 118. His cardiac enzymes were cycled and slowly trended up to 126 and then downto 121. He was admitted for acute exacerbation of CHF and required supplementaloxygen at 2 L. The patient is not oxygen dependent baseline. He was treated with diuresis using IV diuretics and an echocardiogram was completed on 04/14/2022. Echo demonstrated moderate concentric left ventricular hypertrophy, EFof 40%, mild to moderate global hypokinesis of the LV, moderate left atrial enlargement, moderate right atrial enlargement, and mild aortic valve insufficiency. This is stable when compared to previous echocardiogram. We continue to diurese him and clinically he improved. On 04/15/2022 he required supplemental oxygen at 2 L with exertion to maintain oxygen saturations greater than 88%. This was reassessed on 04/16/2022 for the need of home oxygen and he required no oxygen with rest or exertion. A stress test was obtained as he is high risk for coronary disease and this was negative for any inducible ischemia. The patient was chest pain-free throughout his entire hospital stay including during the stress test. On discharge I discontinued his to torsemide and converted him to Bumex 2 mg p.o. twice daily. His serum creatinine did improve from 1.9 down to 1.69 on the day of discharge. I suspect his rise was related to him being off the Starling curve as he did improve with diuresis. It is unclear what his baseline serum creatinine is since his nephrectomy as I have norecent blood work prior to admission. I have asked him to follow-up with his primary care physician within the next 2 weeks for reevaluation and obtain a basic metabolic profile to be done within the next week to reassess his electrolyte and kidney function. He is also to follow-up with his primary provider for instruction with his Coumadin. INR was 2.1 on the day of discharge and he was therapeutic. 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 He request to see Dr. Gaona however he needs to check with his insurance that it is covered. I did give him the information for follow-up after discharge. He was dischargedhome in stable condition with a prescription for the Bumex on 04/16/2022. Discharge diagnoses: Acute hypoxia secondary to acute exacerbation of HFrEF-resolved Chronic HFrEF Troponin elevation Serum creatinine elevation Metastatic clear-cell carcinoma Hypertension Atrial fibrillation-chronic Hyperlipidemia GERD NIMCO Tobacco abuse Physical Exam Const alert, oriented x3, no apparent distress and well nourished Constitutional Narrative: Obese, -Lithuanian, sitting up on the edge of the bed, on room air, atbedside, appears comfortable, nontoxic General Appearance: cooperative, comfortable, well kempt and well developed Orientation / Consciousness: awake, oriented to person, oriented to place and oriented to time Exam Limitations: no limitations Nutritional Appearance: obese HEENT normocephalic, head/scalp atraumatic, hearing grossly normal bilaterally and moist oral mucous membranes HEENT Narrative: Mallampati is 3, no thrush Eyes PERRL, EOMs intact bilaterally and conjunctivae normal Eyes Narrative: No scleral icterus Neck no lymphadenopathy, supple and no JVD Neck Narrative: Trachea midline, no thyroid enlargement Resp normal respiratory effort, no retractions, no use of accessory muscles and clearto auscultation bilaterally Auscultation: Negative for rales, rhonchi or wheezes Cardio regular rate, regular rhythm, S1 normal heart sound, S2 normal heart sound, no murmurs, no rub, no gallops and no clicks GI normal to inspection, nondistended, normoactive bowel sounds, soft to palpation,non-tender and non-distended Extremity no clubbing, cyanosis or edema Extremity Narrative: 2+ pedal pulses Skin no rashes or lesions noted, no wounds, skin turgor normal and no jaundice Neuro oriented x3, CN's II-XII intact bilaterally, moves all extremities and no focal motor deficits Speech: speech normal Psych affect normal Psych Narrative: Very pleasant, appropriately interactive Weight / BMI Weight Weight: 121.1 kg Body Mass Index (BMI) 38.5 ABG / Lab / Microbiology Data Result Diagrams: 04/15/22 06:21 04/16/22 06:07 Laboratory: Laboratory Results - last 24 hr 04/16/22 06:07: PT 23.6 H, INR 2.1 04/16/22 06:07: Sodium 141, Potassium 3.7, Chloride 105, Carbon Dioxide 31.0, Anion Gap 5, BUN 29 H, Creatinine 1.69 H, Estim Creat Clear Calc 49.19, Est GFR (MDRD) Af Amer 54 L, Est GFR (MDRD) Non-Af 45 L, BUN/Creatinine Ratio 17.2, Glucose 110 H, Calcium 9.0 D/C Instructions Discharge Diet: Low fat / Low cholesterol, 8 Cup Fluid Restriction and 4000 mg Sodium Diet Discharge Activity: Return to Normal Activity Return to work on: 04/20/22 Meaningful Use Info Meaningful Use Diagnoses (Choose all that apply): None applicable Discharge Plan Admission Admit Date/Time: 04/13/22 23:44 Primary Reason for Your Visit: Shortness of breath Attending Provider: Carol Chiu Primary Care Provider: Jose Ramon Turner Consulting Providers: Dangelo Camacho Instructions Additional Instructions / Restrictions: 1. Please call tomorrow to make appointment for follow-up with your primary carephysician also at that time please request a basic metabolic profile that you can do early next week to recheck your kidney function and your electrolytes 2. Your INR was therapeutic at 2.1 on discharge. Please follow-up with the physician that manages this for reassessment when they deem appropriate Discharge Orders/Prescriptions Prescriptions: New bumetanide 2 mg Tablet 2 mg PO BIDLX Qty: 60 1RF Continued cyclobenzaprine 10 mg Tablet 10 mg PO TID PRN (Reason: Spasms) carvedilol 6.25 mg tablet 6.25 mg DAILY spironolactone 25 mg tablet 12.5 mg PO DAILY pantoprazole 40 mg Tablet,Delayed Release (Dr/Ec) 40 mg PO DAILY ferrous sulfate 325 mg (65 mg iron) Tablet 325 mg PO BID albuterol 90 mcg/actuation Aerosol 90 mcg INHALATION Q4H PRN PRN (Reason: breathing) rosuvastatin 40 mg Tablet 40 mg PO DAILY cabozantinib 20 mg Tablet 20 mg PO DAILY warfarin 10 mg Tablet 7 mg PO DAILY losartan 50 mg tablet 50 mg PO DAILY Qty: 60 0RF Discontinued torsemide 40 mg Tablet 40 mg PO DAILY Referrals / Follow Up: Jose Ramon Turner MD [Primary Care Provider] - Within 2 Weeks (Please call tomorrow to make appointment for follow-up also at that time please request a basicmetabolic profile that you can do early next week to recheck your kidney function and your electrolytes) Moises Gaona MD [Med Staff - Active Staff] - See Referral Note (4-6 weeks) Disposition Disposition (needs filled in before D/C Order can be placed): Home, Self Care Charges/Coding Visit Charges Inpatient E&M: 06301 Disch Hosp >30min 04/16/22 2405 <Electronically signed by Carol Chiu DO> Cosigner Signature (if applicable): CC: Dr. Jose Ramon Turner MD; Dr. Carol Chiu DO~ Signed [facility] Work Phone: Discharge summary Author Carol Chiu [facility] December 17, 2022 12:20pm Note Date/Time December 17, 2022 1 2:11pm [facility] Medical Records Department [address] [place] [address] Discharge Summary 12/17/22 1210 MR#: [id number] Acct: [id number] Name: YEFRI YANEZ Rep #[id number] : 1965 57 From: Carol Chiu DO PCP: Dr. Jose Ramon Turner MD Status: [facility] Prov[facility] Date of Admission: 12/16/22 Date of Discharge: 12/17/22 Primary Care Physician: Dr. Jose Ramon Turner MD Reason For Visit: RESP INSUFFICIENCY, PNEUMONIA, CHF Diagnosis Discharge Diagnosis (1) Acute on chronic systolic heart failure: Status: Chronic Code(s): I50.23 - Acute on chronic systolic (congestive) heart failure (2) Shortness of breath: Status: Acute Code(s): R06.02 - Shortness of breath (3) Abnormal chest x-ray: Status: Acute Code(s): R93.89 - Abnormal findings on diagnostic imaging of other specified body structures Medications at Discharge Home Medications cyclobenzaprine 10 mg tablet 10 mg PO TID PRN Spasms 12/07/21 albuterol sulfate 2.5 mg/3 mL (0.083 %) solution for nebulization 2.5 mg (3 mL) inhalation PRN PRN Shortness Of Breath #75 mL 06/29/22 ferrous sulfate 325 mg (65 mg iron) tablet 325 mg PO BID #30 tabs 06/29/22 fluticasone fur. 100 mcg-umeclid 62.5 mcg-vilant 25 mcg inhalat.powder (Trelegy Ellipta) 1 inh inhalation DAILY #28 ea 06/29/22 nystatin 100,000 unit/mL oral suspension 100,000 unit PO DAILY #60 mL 06/29/22 pantoprazole 40 mg tablet,delayed release 40 mg PO DAILY gerd #30 tabs 06/29/22 potassium chloride 20 mEq tablet,extended release 20 meq PO DAILY #30 tabs 06/29/22 rosuvastatin 40 mg tablet 40 mg PO DAILY cholesterol #30 tabs 06/29/22 warfarin 10 mg tablet 8 mg (0.8 x 10 mg) PO DAILY Check with primary doctor #30 tabs 06/29/22 bumetanide 2 mg tablet 2 mg PO BID #180 tabs 09/29/22 cabozantinib 20 mg tablet 20 mg PO DAILY 09/29/22 carvedilol 12.5 mg tablet 18.75 mg PO BID 09/29/22 losartan 50 mg tablet 50 mg PO DAILY #90 tabs 09/29/22 spironolactone 25 mg tablet 25 mg PO DAILY #90 tabs 09/29/22 Hospital Course Procedures EKG and - (Chest x-ray) Summary of Care Provided Minutes Spent on Discharge: 37 Hospital Course: Mr. Yanez is a 57-year-old -Lithuanian male who presented to the emergency department at [facility] on 12/15/2022 with worsening shortness of breath. Patient told the admitting physician that he is supposed to be wearing his oxygen all the time at home however he is only wearing it whenneeded. His oxygen was written for by Dr. Yanez and is to be 3 L [id number]. He does have a history of systolic heart failure with an EF of 40% on his most recent echo which was done in April 2022. He is on diuretics at home use being Bumex 2 mg p.o. twice daily. It does sound like he has poor indiscretion with his fluid intake as well as his sodium intake. Patient did report to me he does not add any salt but he reports he often eats bologna sandwiches for lunch. I did have a dietitian consult with him to discuss low-sodium diet and we also gave him information with regards to decreasing his salt intake and a low sodium diet at home for him to review. He also has a history of metastatic renal cancer and is on immunotherapy for this. His BNP was markedly elevated at the time of admission at 574 but had been 220 in November of this past year. His chest x-ray also continue to showed a right-sided chest mass that is stable when compared to previous but there was a possible superimposed consolidation that they felt was potentially pneumonia. The patient did not have a leukocytosis on presentation was not febrile. He wasalso not coughing any sputum or having fevers at home per his report. Strep pneumo and Legionella antigens were obtained and negative. He was given Levaquin and placed on IV Bumex and admitted to the medical floor. I was able to discontinue his IV Levaquin given the above. He was maintained on IV Bumex for total of 48 hours and was feeling much better. His oxygen requirements were at his baseline of 3 L with exertion and at rest when assessed prior to discharge and he was feeling much better. Again we did have the dietitian review a low-sodium diet and gave him information with regards to this as I think this dietary discretion of sodium is likely causing his recurrent admissions with regards to heart failure. We also did discuss his need for tobacco cessation as he is still smoking and compliance with his oxygen at home. He voiced understanding. I recommended he follow-up with his primary care physician within the next [address] Yanez within the next month. He was discharged home in stable condition on 12/17/2022 with no medication changes. Discharge diagnoses: Acute on chronic HFrEF CKD stage IIIb Metastatic clear-cell carcinoma Hypertension Chronic hypoxic respiratory failure--> home prescription is for 3 L [id number] Atrial fibrillation Hyperlipidemia GERD NIMCO Tobacco abuse Physical Exam Const no apparent distress and well nourished; Negative for average body habitus or healthy appearing Constitutional Narrative: Obese, -Lithuanian, male, lying in bed resting comfortably but awakens easily, wearing CPAP alert and oriented when awake, appears comfortable and nontoxic General Appearance: cooperative, comfortable, well kempt and well developed Exam Limitations: no limitations HEENT normocephalic, head/scalp atraumatic, moist oral mucous membranes and oropharynxnormal HEENT Narrative: Mallampati 3, no thrush Eyes PERRL, EOMs intact bilaterally and conjunctivae normal Eyes Narrative: No scleral icterus Neck no lymphadenopathy and supple Neck Narrative: Trachea midline, no thyroid enlargement Resp normal respiratory effort, no retractions, no use of accessory muscles and clearto auscultation bilaterally Resp Narrative: Diffusely diminished but clear Auscultation: Negative for crackles, rhonchi or wheezes Cardio regular rate, regular rhythm, S1 normal heart sound, S2 normal heart sound, no murmurs, no rub, no gallops and no clicks GI normal to inspection, nondistended, normoactive bowel sounds, soft to palpation and non-tender Extremity no clubbing, cyanosis or edema Extremity Narrative: Pedal pulses are 2+ Skin no rashes or lesions noted, no wounds, skin turgor normal and no jaundice Neuro oriented x3, CN's II-XII intact bilaterally, moves all extremities and no focal motor deficits Speech: speech normal Psych affect normal Psych Narrative: Very pleasant, interacts appropriately Weight / BMI Weight Weight: 117.7 kg Body Mass Index (BMI) 36.1 ABG / Lab / Microbiology Data 12/17/22 05:49 12/17/22 05:49 Laboratory: Laboratory Results - last 24 hr 12/17/22 05:49: WBC 5.2, RBC 4.04 L, Hgb 13.9, Hct 41.2, MCV 102.0 H, MCH 34.4 H, MCHC 33.7, RDW Std Deviation 63.6 H, RDW Coeff of Lizzie 16.9 H, Plt Count 193, MPV 11.2, Immature Gran % (Auto) 0.400, Neut % (Auto) 71.5 H, Lymph % (Auto) 16.9 L, Barrow % (Auto) 9.8, Eos % (Auto) 1.0, Baso % (Auto) 0.4, Absolute Neuts (auto) 3.7, Absolute Lymphs (auto) 0.88, Nucleated RBC % 0.8, PT 24.6 H, INR 2.2, Sodium 138, Potassium 3.5, Chloride 107, Carbon Dioxide 26.0, Anion Gap 5, BUN 19 H, Creatinine 1.65 H, Estim Creat Clear Calc 51.97, Est GFR (MDRD) Af Amer 55 L, Est GFR (MDRD) Non-Af 46 L, BUN/Creatinine Ratio 11.5, Glucose 110 H,Calcium 9.3 Microbiology: Microbiology 12/15/22 15:20 Urine, Clean Catch Legionella Antigen - Final 12/15/22 15:20 Urine, Clean Catch Streptococcus pneumoniae Antigen (M - Final D/C Instructions Discharge Diet: Low fat / Low cholesterol (Limit fluid intake to about 2 L daily) and 2000 mg Sodium Diet Discharge Activity: Return to Normal Activity Return to work on: 12/18/22 Meaningful Use Info Meaningful Use Diagnoses (Choose all that apply): None applicable Discharge Plan Admission Admit Date/Time: 12/16/22 14:50 Primary Reason for Your Visit: Shortness of Breath Attending Provider: Carol Chiu Primary Care Provider: Jose Ramon Turner Consulting Providers: Marquise Padilla Instructions Patient Instructions: Low-Salt Choices, Low Salt Diet Dc Additional Instructions / Restrictions: 1. It is very important that you watch your salt intake as discussed with the dietitian prior to discharge Discharge Orders/Prescriptions Prescriptions: Continued carvedilol 12.5 mg tablet 18.75 mg PO BID spironolactone 25 mg tablet 25 mg PO DAILY Qty: 90 3RF bumetanide 2 mg tablet 2 mg PO BID Qty: 180 3RF losartan 50 mg tablet 50 mg PO DAILY Qty: 90 3RF cyclobenzaprine 10 mg Tablet 10 mg PO TID PRN (Reason: Spasms) cabozantinib 20 mg tablet 20 mg PO DAILY albuterol sulfate 2.5 mg /3 mL (0.083 %) solution for nebulization 2.5 mg inhalation PRN PRN (Reason: Shortness Of Breath) Qty: 75 0RF warfarin 10 mg Tablet 8 mg PO DAILY Qty: 30 0RF pantoprazole 40 mg tablet,delayed release (DR/EC) 40 mg PO DAILY Qty: 30 0RF ferrous sulfate 325 mg (65 mg iron) Tablet 325 mg PO BID Qty: 30 0RF rosuvastatin 40 mg Tablet 40 mg PO DAILY Qty: 30 0RF potassium chloride 20 mEq tablet extended release 20 meq PO DAILY Qty: 30 0RF Trelegy Ellipta 100-62.5-25 mcg blister with device 1 inh inhalation DAILY Qty: 28 0RF nystatin 100,000 unit/mL suspension 100,000 unit PO DAILY Qty: 60 0RF Rx Instructions: administer 1/2 of dose in each side of the mouth Referrals / Follow Up: Jose Ramon Turner MD [Primary Care Provider] - Within 2 Weeks (Please call the office to schedule an appt within the next 2 weeks. ) Cipriano Yanez MD [Med Staff - Active Staff] - 12/28/22 11:30 am Disposition Disposition (needs filled in before D/C Order can be placed): Home, Self Care Charges/Coding Visit Charges Inpatient E&M: 94017 Disch Hosp >30min 12/17/22 1220 <Electronically signed by Carol Chiu DO> Cosigner Signature (if applicable): CC: Dr. Jose Ramon Turner MD; Dr. Carol Chiu DO; Dr. Cipriano Yanez MD~ Signed [facility] Work Phone: Evaluation note* Diagnosis Onset Date Resolution Status Mass of chest wall Active [facility] Work Phone: Evaluation note* Diagnosis Malignant neoplasm of kidney, unspecified laterality (HCC)- Primary Malignant neoplasm of kidney excluding renal pelvis, unspecified laterality (HCC) [facility] Diagnosis Mass of right chest wall- Primary [facility]* Diagnosis Screening for genitourinary condition Screening for other and unspecified genitourinary condition Malignant neoplasm of kidney, unspecified laterality (HCC) [facility] Diagnosis Malignant neoplasm of kidney, unspecified laterality (HCC) Malignant neoplasm of kidney excluding renal pelvis, unspecified laterality (HCC) Malignant neoplasm of kidney, unspecified laterality (HCC) [facility] Diagnosis Malignant neoplasm of kidney, unspecified laterality (HCC) Malignant neoplasm of kidney excluding renal pelvis, unspecified laterality (HCC) [facility]* Diagnosis Malignant neoplasm of kidney, unspecified laterality (HCC) Malignant neoplasm of kidney excluding renal pelvis, unspecified laterality (HCC) Chest wall mass Swelling, mass, or lump in chest [facility] Diagnosis Malignant neoplasm of kidney excluding renal pelvis, unspecified laterality (HCC)- Primary [facility]* Diagnosis Malignant neoplasm of kidney excluding renal pelvis, unspecified laterality (HCC) [facility] Diagnosis Malignant neoplasm of kidney excluding renal pelvis, unspecified laterality (HCC)- Primary Renal cell carcinoma, unspecified laterality (HCC) [facility]* Diagnosis Malignant neoplasm of right kidney, except renal pelvis (HCC)- Primary Malignant neoplasm of kidney, except pelvis [facility] Diagnosis Anxiety- Primary Anxiety state, unspecified [facility]* Diagnosis Malignant neoplasm of right kidney, except renal pelvis (HCC) Malignant neoplasm of kidney, except pelvis [facility] Diagnosis Malignant neoplasm of kidney excluding renal pelvis, unspecified laterality (HCC)- Primary [facility]* Diagnosis Malignant neoplasm of right kidney, except renal pelvis (HCC) Malignant neoplasm of kidney, except pelvis Renal cell carcinoma, unspecified laterality (HCC) [facility] Diagnosis Malignant neoplasm of kidney excluding renal pelvis, unspecified laterality (HCC) Renal cell carcinoma, unspecified laterality (HCC) [facility] noteNo assessment information [facility]Pe[facility] Work Phone: Evaluation note* Diagnosis Nonrheumatic mitral valve regurgitation- Primary Cardiomyopathy, nonischemic (HCC) Other primary cardiomyopathies [facility]* Diagnosis Malignant neoplasm of kidney excluding renal pelvis, unspecified laterality (HCC)- Primary Metastatic renal cell carcinoma, unspecified laterality (HCC) [facility]* Diagnosis Renal cell carcinoma, unspecified laterality (HCC)- Primary [facility]* Diagnosis Malignant neoplasm of kidney excluding renal pelvis, unspecified laterality (HCC) [facility]* Diagnosis Renal cell carcinoma of right kidney (HCC)- Primary [facility]* Diagnosis Nonrheumatic mitral valve regurgitation- Primary Nonrheumatic mitral valve regurgitation [facility]* Diagnosis Renal cell carcinoma, unspecified laterality (HCC)- Primary Hypertension, unspecified type [facility] Diagnosis Renal cell carcinoma of right kidney (HCC)- Primary [facility] Diagnosis Malignant neoplasm of right kidney, except renal pelvis (HCC) Malignant neoplasm of kidney, except pelvis [facility]* Diagnosis Renal cell carcinoma, unspecified laterality (HCC)- Primary [facility]* Diagnosis Renal cell carcinoma of right kidney (HCC)- Primary [facility]* Diagnosis Renal cell carcinoma of right kidney (HCC)- Primary [facility] Diagnosis Other specified disorders of kidney and ureter [facility] Diagnosis OPENED IN ERROR- Primary To allow closing an encounter opened in error (used in SmartSet) documented in this encounter [facility] note* Diagnosis Pedal edema- Primary Edema Essential hypertension Unspecified essential hypertension Coronary artery disease involving kasaan coronary artery of kas[place] heart without angina pectoris Disturbance in sleep behavior Sleep disturbance, unspecified [facility]* Diagnosis Renal cell carcinoma, unspecified laterality (HCC)- Primary Hypertension, unspecified type [facility]* Diagnosis Renal cell carcinoma, unspecified laterality (HCC)- Primary [facility]* Diagnosis Malignant neoplasm of kidney excluding renal pelvis, unspecified laterality (HCC) [facility]* Diagnosis Malignant neoplasm of right kidney, except renal pelvis (HCC)- Primary Malignant neoplasm of kidney, except pelvis [facility]* Diagnosis SOB (shortness of breath)- Primary Shortness of breath Encounter for screening for COVID-19 Renal mass, right Unspecified disorder of kidney and ureter [facility]* Diagnosis SOB (shortness of breath) Shortness of breath Encounter for screening for COVID-19 Renal mass, right Unspecified disorder of kidney and ureter [facility]* Diagnosis SOB (shortness of breath) Shortness of breath Encounter for screening for COVID-19 Renal mass, right Unspecified disorder of kidney and ureter [facility]* Diagnosis Renal cell carcinoma of right kidney (HCC)- Primary Encounter for screening for COVID-19 Renal mass, right Unspecified disorder of kidney and ureter [facility]* Diagnosis Metastatic renal cell carcinoma, unspecified laterality (HCC) Pneumonitis Pneumonia, organism unspecified Atrial fibrillation, unspecified type (HCC) Hypertension, unspecified type Encounter for screening for COVID-19 Renal mass, right Unspecified disorder of kidney and ureter [facility]* Diagnosis Paroxysmal atrial fibrillation (HCC)- Primary Atrial fibrillation Mitral valve insufficiency, unspecified etiology New onset a-fib (HCC) Atrial fibrillation Essential hypertension Unspecified essential hypertension Mixed hyperlipidemia 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 (HCC) Encounter for screening for COVID-19 Renal mass, right Unspecified disorder of kidney and ureter [facility] Diagnosis Paroxysmal atrial fibrillation (HCC)- Primary Atrial fibrillation Encounter for screening for COVID-19 Renal mass, right Unspecified disorder of kidney and ureter [facility]* Diagnosis Renal cell carcinoma of right kidney (HCC)- Primary Atrial fibrillation, unspecified type (HCC) Encounter for screening for COVID-19 Renal mass, right Unspecified disorder of kidney and ureter [facility]* Diagnosis Renal cell carcinoma of right kidney (HCC)- Primary Encounter for screening for COVID-19 Renal mass, right Unspecified disorder of kidney and ureter [facility]* Diagnosis Preoperative examination- Primary Preoperative examination, unspecified Renal mass, right Unspecified disorder of kidney and ureter Class 2 obesity due to excess calories without serious comorbidity with body mass index (BMI) of 37.0 to 37.9 in adult NIMCO (obstructive sleep apnea) Obstructive sleep apnea (adult) (pediatric) Tobacco use disorder History of seizure Personal history of other disorders of nervous system and sense organs Essential hypertension Unspecified essential hypertension Mixed hyperlipidemia New onset a-fib (HCC) Atrial fibrillation Nonrheumatic mitral valve regurgitation Acute decompensated heart failure (HCC) Congestive heart failure, unspecified Gastroesophageal reflux disease without esophagitis Esophageal reflux Prediabetes Other abnormal glucose Coronary artery disease involving kas[place] coronary artery of kas[place] heart, unspecified whether angina present Encounter for screening for COVID-19 Renal mass, right Unspecified disorder of kidney and ureter [facility]* Diagnosis Metastatic renal cell carcinoma, unspecified laterality (HCC)- Primary [facility]* Diagnosis Malignant neoplasm of right kidney, except renal pelvis (HCC) Malignant neoplasm of kidney, except pelvis [facility]* Diagnosis Onset Date Resolution Status Atrial fibrillation with RVR acute Hypoxemia acute Systolic CHF, acute acute Acute exacerbation of CHF (congestive heart failure) [facility] Work Phone: Evaluation note* Diagnosis Renal cell carcinoma of right kidney (HCC)- Primary [facility]* Diagnosis Renal cell carcinoma of right kidney (HCC)- Primary [facility] Diagnosis Renal cell carcinoma of right kidney (HCC) [facility] Diagnosis Screening for genitourinary condition Screening for other and unspecified genitourinary condition [facility]* Cardiovascular: Regular, rate and rhythm, no murmurs, 2+ equal pulses of the extremities, normal S 1and S 2Respiratory/Thorax: Patent airways, diminished breath sounds, crackles noted at lung bases bilaterally, good chest expansion, thorax symmetricSkin: Warm and dry, no lesions, no rashesConstitutional: Well developed, awake/alert/oriented x3, no distress, alert and cooperativeLymphatic: No signi ficant lymphadenopathyGenitourinary: No mcgowan catheterGastrointestinal: Mild distended, obese abdomen, soft, no rebound tenderness or guarding. Incision sites well approximated, no surrounding erythema, no drainage or induration. Appropriately TTP.Psychological: Appropriate mood and behavior [facility] Renal cell carcinoma of right kidney metastatic to other site (HCC)- Primary Paroxysmal atrial fibrillation (HCC)- Primary Atrial fibrillation Nonrheumatic mitral valve regurgitation Acute decompensated heart failure (HCC) Congestive heart failure, unspecified Essential hypertension Unspecified essential hypertension Tobacco use disorder NIMCO (obstructive sleep apnea) Obstructive sleep apnea (adult) (pediatric) [facility]* Diagnosis Paroxysmal atrial fibrillation (HCC)- Primary Atrial fibrillation Nonrheumatic mitral valve regurgitation Acute decompensated heart failure (HCC) Congestive heart failure, unspecified Essential hypertension Unspecified essential hypertension Tobacco use disorder NIMCO (obstructive sleep apnea) Obstructive sleep apnea (adult) (pediatric) [facility]* Diagnosis Metastatic renal cell carcinoma, unspecified laterality (HCC)- Primary [facility]* Diagnosis Renal cell carcinoma of right kidney (HCC)- Primary [facility]* Diagnosis Renal cell carcinoma of right kidney (HCC)- Primary [facility] Diagnosis Renal cell carcinoma of right kidney (HCC)- Primary [facility]* Diagnosis Malignant neoplasm of right kidney, except renal pelvis (HCC)- Primary Malignant neoplasm of kidney, except pelvis [facility] Diagnosis Onset Date Resolution Status Acute exacerbation of CHF (congestive heart failure) [facility] Work Phone: Evaluation note* Diagnosis Onset Date Resolution Status Elevated serum creatinine ac squaxin Elevated troponin I level ac squaxin Hypoxemia acute Systolic CHF, acute acute Acute exacerbation of CHF (congestive heart failure) [facility] Work Phone: Evaluation note* Diagnosis Onset Date Resolution Status Acute exacerbation of CHF (congestive heart failure) resolved Hypoxemia resolved Systolic CHF, acute resolved [facility] Work Phone: Evaluation note* Diagnosis Onset Date Resolution Status Acute exacerbation of CHF (congestive heart failure) resolved Hypoxemia resolved Systolic CHF, acute resolved CHF (congestive heart failure) acute Dyspnea acute [facility] Work Phone: Evaluation note* Diagnosis Onset Date Resolution Status Acute exacerbation of CHF (congestive heart failure) resolved Hypoxemia resolved Systolic CHF, acute resolved CHF (congestive heart failure) acute Dyspnea acute Thrush acute Hypertension chronic [facility] Work Phone: Evaluation note* Diagnosis Onset Date Resolution Status Acute exacerbation of CHF (congestive heart failure) resolved Hypoxemia resolved Systolic CHF, acute resolved Thrush acute CHF (congestive heart failure) resolved Dyspnea resolved Cancer acute Renal failure acute CHF (congestive heart failure) resolved 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 Dyspnea acute [facility] Work Phone: Evaluation note* Diagnosis Onset Date Resolution Status Acute exacerbation of CHF (congestive heart failure) resolved Hypoxemia resolved Systolic CHF, acute resolved Thrush acute CHF (congestive heart failure) resolved Dyspnea resolved Cancer acute Renal failure acute CHF (congestive heart failure) resolved 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 Atrial fibrillation acute Dyspnea acute Elevated troponin acute Acute exacerbation of CHF (congestive heart failure) chronic CKD (chronic kidney disease) chronic 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 [facility] Work Phone: Evaluation note* Diagnosis Onset Date Resolution Status Thrush acute CHF (congestive heart failure) resolved Dyspnea resolved Cancer acute Renal failure acute CHF (congestive heart failure) resolved 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 Renal cell cancer chronic 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 Acute exacerbation of CHF (congestive heart failure) resolved Dyspnea resolved Elevated troponin resolved 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 Renal cell cancer chronic [facility] Work Phone: Evaluation note* Diagnosis Onset Date Resolution Status 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 Renal cell cancer chronic Renal failure acute CHF (congestive heart failure) resolved Abnormal chest x-ray acute Acute respiratory insufficiency acute Acute systolic heart failure acute Hemoptysis acute Pneumonia acute Shortness of breath acute Warfarin-induced coagulopathy acute Acute on chronic renal insufficiency chronic Acute on chronic systolic heart failure chronic Chronic a-fib chronic [facility] Work Phone: Evaluation note* Diagnosis Onset Date Resolution Status Renal failure acute CHF (congestive heart failure) resolved Acute on chronic renal insufficiency resolved Acute on chronic systolic heart failure resolved Acute respiratory insufficiency resolved Acute systolic heart failure resolved Hemoptysis resolved Shortness of breath resolved [facility] Work Phone: evaluation note* Diagnosis Onset Date Resolution Status Acute on chronic renal insufficiency resolved Acute on chronic systolic heart failure resolved Acute respiratory insufficiency resolved Acute systolic heart failure resolved Hemoptysis resolved Shortness of breath resolved [facility] Work Phone: Evaluation note* Diagnosis Onset Date Resolution Status 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 Renal cell cancer [facility] Work Phone: Evaluation note* Diagnosis Pre-op exam- Primary Preoperative examination, unspecified Encounter for screening colonoscopy Special screening for malignant neoplasms, colon Hyperlipidemia, unspecified hyperlipidemia type Essential hypertension Unspecified essential hypertension Gastroesophageal reflux disease without esophagitis Esophageal reflux NIMCO (obstructive sleep apnea) Obstructive sleep apnea (adult) (pediatric) Tobacco use disorder History of seizure Personal history of other disorders of nervous system and sense organs Class 1 obesity due to excess calories without serious comorbidity with body mass index (BMI) of 33.0 to 33.9 in adult Preoperative examination- Primary Preoperative examination, unspecified Renal mass, right Unspecified disorder of kidney and ureter Class 2 obesity due to excess calories without serious comorbidity with body mass index (BMI) of 37.0 to 37.9 in adult NIMCO (obstructive sleep apnea) Obstructive sleep apnea (adult) (pediatric) Tobacco use disorder History of seizure Personal history of other disorders of nervous system and sense organs Essential hypertension Unspecified essential hypertension Mixed hyperlipidemia New onset a-fib (HCC) Atrial fibrillation Nonrheumatic mitral valve regurgitation Acute decompensated heart failure (HCC) Congestive heart failure, unspecified Gastroesophageal reflux disease without esophagitis Esophageal reflux Prediabetes Other abnormal glucose Coronary artery disease involving kasaan coronary artery of kasaan heart, unspecified whether angina present Acute decompensated heart failure (HCC) Congestive heart failure, unspecified Paroxysmal atrial fibrillation (HCC) Atrial fibrillation [facility] Camacho [facility] April 14, 2022 12:43am Note Date/Time April 14, 2022 1 2:24am [facility] Medical Records Department [address] [place] [address] H&P Exam - Hospitalist 04/13/22 2334 MR#: [id number] Acct: [id number] Name: YEFRI YANEZ Rep #:[id number] : 1965 57 From: Dangelo Camacho MD PCP: Dr. 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 Patient went to his PCPs office where labs drawn showed elevated troponin so patient was sent to theemergency department. Of note the patient complains of chest tightness with coughing. He denies any change in weight. He denies any swelling. PFSH Medical History Atrial fibrillation Cancer Chest pain Congestive heart failure (CHF) CPAP (continuous positive airway pressure) dependence Hypertension Irregular heart beat Sleep apnea Smoker Home Medications albuterol 90 mcg/actuation aerosol inhaler 90 mcg inhalation Q4H PRN PRN breathing 12/07/21 [History Last Taken Unknown] cabozantinib 20 mg tablet 20 mg PO DAILY 12/07/21 [History Last Taken Unknown] carvedilol 6.25 mg tablet See Rx Instructions .Route .COMPLEX 12/07/21 [History Last Taken Unknown] cyclobenzaprine 10 mg tablet 10 mg PO TID PRN Spasms 12/07/21 [History Last Taken Unknown] ferrous sulfate 325 mg (65 mg iron) tablet 325 mg PO BID 12/07/21 [History Last Taken Unknown] pantoprazole 40 mg tablet,delayed release 40 mg PO DAILY 12/07/21 [History Last Taken Unknown] rosuvastatin 40 mg tablet 40 mg PO DAILY 12/07/21 [History Last Taken Unknown] spironolactone 25 mg tablet 12.5 mg PO DAILY 12/07/21 [History Last Taken Unknown] torsemide 40 mg tablet 40 mg PO DAILY 12/07/21 [History Last Taken Unknown] warfarin 10 mg tablet 7 mg PO DAILY Check with primary doctor 12/07/21 [History Last Taken Unknown] losartan 50 mg tablet 50 mg PO DAILY #60 tabs 12/09/21 [Rx Last Taken Unknown] Allergy/AdvReac Type Severity Reaction Status Date / Time aspirin [ASA] Allergy Other Verified 04/13/22 22:21 Penicillins Allergy PT UNSURE Verified 04/13/22 22:21 OF REACTION shellfish derived Allergy Hives Verified 04/13/22 22:21 Family History (Updated 04/14/22 @ 00:[address] Dangelo Camacho MD) Other Cancer Heart disease Surgical History (Updated 04/14/22 @ 00:[address] Dangelo Camacho MD) History of nephrectomy, right Social History Smoking Status: Current every day smoker tobacco type: cigars ROS ROS Narrative Pertinent positives and pertinent negatives as noted in HPI. All other systems were reviewed and are negative Vital Signs Vital Signs Vital Signs: 04/13/22 21:17 04/13/22 21:17 04/13/22 22:20 Temperature 96.0 F L 96.0 F L Temperature Source Temporal Temporal Pulse Rate 112 H 112 H Respiratory Rate 18 18 Respiratory Effort Respiratory Depth Respiratory Pattern Blood Pressure 145/105 H 145/105 H Blood Pressure Mean 118 118 Pulse Ox 98 98 96 Oxygen Delivery Method Room Air Room Air Room Air Oxygen Flow Rate (L/min) 04/13/22 22:20 04/13/22 22:22 04/13/22 22:42 Temperature Temperature Source Pulse Rate 112 H 76 Respiratory Rate 40 H Respiratory Effort Short of Breath Labored Accessory Muscle Use Respiratory Depth Shallow Respiratory Pattern Tachypnea Blood Pressure 119/80 Blood Pressure Mean 93 Pulse Ox 99 Oxygen Delivery Method Room Air Room Air Room Air Oxygen Flow Rate (L/min) 04/13/22 22:42 04/13/22 22:42 Temperature Temperature Source Pulse Rate 99 Respiratory Rate 35 H Respiratory Effort Respiratory Depth Respiratory Pattern Blood Pressure 109/82 H Blood Pressure Mean 91 Pulse Ox 94 98 Oxygen Delivery Method Nasal Cannula Nasal Cannula Oxygen Flow Rate (L/min) 2 2 Weight Weight: 116.573 kg Body Mass Index (BMI) 35.8 Physical Exam Narrative Physical exam: General: Well-nourished, well-developed. Head: Normocephalic, atraumatic, no tenderness Eyes: Vision is grossly intact. EOMI ENT, no trauma, moist mucous membranes, no rhinorrhea Neck: Nontender, No thyromegaly. CVS: Regular rate and rhythm. S1-S2 present. No murmur, gallop or rub. Respiratory : Conversational dyspnea. Tachypnea. Bibasilar Rales Abdomen: Soft, nontender, nondistended, normal bowel sounds, no masses : Deferred Back: Nontender, no CVA tenderness. Extremities: Nontender full range of motion, no trauma Skin: Normal color, no trauma, abrasions Neuro: Alert, oriented, cranial nerves II through XII grossly intact. Psychiatry: Normal mood. Normal affect. Not depressed. Not anxious. Results Lab / Micro Data Result Diagrams: 04/13/22 21:40 04/13/22 21:40 Labs: Laboratory Results - last 24 hr 04/13/22 21:40: WBC 5.7, RBC 4.03 L, Hgb 12.8 L, Hct 38.2 L, MCV 94.8 H, MCH 31.8, MCHC 33.5, RDW Std Deviation 69.1 H, RDW Coeff of Lizzie 20.2 H, Plt Count 197, MPV 10.8, Immature Gran % (Auto) 0.400, Neut % (Auto) 79.4 H, Lymph % (Auto) 12.7 L, Barrow % (Auto) 7.1, Eos % (Auto) 0.0, Baso % (Auto) 0.4, Absolute Neuts (auto) 4.5, Absolute Lymphs (auto) 0.72 L, Nucleated RBC % 1.8, Differential Comment SCANNED 04/13/22 21:40: Sodium 143, Potassium 3.7, Chloride 111 H, Carbon Dioxide 25.0, Anion Gap 7, BUN 15, Creatinine 1.94 H, Estim Creat Clear Calc 44.21, Est GFR (MDRD) Af Amer 46 L, Est GFR (MDRD) Non-Af 38 L, BUN/Creatinine Ratio 7.7 L, Glucose 125 H, Calcium 9.0, Troponin I High Sens 126 H* 04/13/22 22:29: PT 21.7 H, INR 1.9 Radiology Impression Chest X-Ray 04/13/22 21:40 IMPRESSION: Right sixth rib based mass redemonstrated. Similar bilateral lower lung infiltrates. Electronically Signed: David Moreno MD at 21:56 EST , Assessment & Plan Assessment/Plan (1) Acute exacerbation of CHF (congestive heart failure): PLAN: Plan Acute Exacerbation of heart failure with reduced ejection fraction Echocardiogram on 12/07/2021 was reviewed. Echocardiogram showed moderate concentric left ventricular hypertrophy. Estimated EF is 35%. Moderate global hypokinesis of the left ventricle. Left atrium was moderately enlarged. Right atrium was moderately enlarged. Echocardiogram on 02/26/2022 at outside hospital showed a cardiomyopathy. EF of 40 to +5%. Left ventricular dysfunction was not evaluated due to A-fib. Impression of chest x-ray by radiologist: Right sixth rib based mass redemonstrated. Similar bilateral lower lung infiltrates. Chest x-ray on presentation and previous chest x-ray was visualized and independently interpreted and I agree with radiologist BNP was 699 which is the highest on file so far. Placed on monitored bed on progressve care unit. Weight on admission to the floor; and then daily Strict I&O's On home torsemide 40 mg daily. Received Lasix 40 mg IV push in the emergency department. Lasix 40 mg IV push twice daily ordered. Supplement potassium. Home guideline directed medical therapy continued. Fluid restriction of 1500 mls daily 2 g cardiac diet Atrial fibrillation Patient with history of A-fib and on Coumadin. Ventricular rate on presentation was 100. Home carvedilol continued. Subtherapeutic INR INR of 1.9 on presentation. Escalate dose of home warfarin. Trend PT/INR. VIMAL on CKD stage II. Creatinine presentation was 1.94. Baseline creatinine is around 1.2. Likely secondary cardiorenal syndrome. IV Lasix as above. Trend BMP. Elevated troponin Initial troponin before hospitalization was 118. Troponin was trended to 126 and then to 133. Likely secondary to heart strain from CHF. DVT prophylaxis: Coumadin continued. SCDs ordered since INR is subtherapeutic. Charges/Coding Visit Charges Inpatient E&M: 67551 Init Hosp L3 04/14/22 0043 <Electronically signed by Dangelo Camacho MD> Cosigner Signature (if applicable): CC: Dr. Jose Ramon Turner MD; Dr. Dangelo Camacho MD~ Signed [facility] Work Phone: History and physical note Author Dr. Lu [facility] June 28, 2022 12:52am Note Date/Time June 28, 2022 12: 20am [facility] Medical Records Department [address] [place] [address] H&P Exam - Hospitalist 06/28/22 0007 MR#: [id number] Acct: [id number] Name: YEFRI YANEZ Rep #[id number] : 1965 57 From: Estelita Lu MD PCP: Dr. Jose Ramon Turner MD Status: ADM IN Location: [place] [address] HPI - General General Date of Admission: 06/28/22 Date of Service: 06/28/22 Chief Complaint: Dyspnea, chest pain, wheezing, cough, recent incorrect Rx bumex. HPI Narrative The patient is a 57 y/o M w/ PMHx: Obesity, NIMCO on CPAP, PAF s/p prior cardioversion on coumadin, COPD, HTN, HLD, GERD, Metastatic renal CA s/p R nephrectomy, Tobacco use who presents to the [facility] ED on 06/27/22 with history of worsening dyspnea over the last 7 to 10 days with associated mild chest discomfort midsternal with exertion described as tightness rated 3-4/10, improving with aerosol treatments, recently completing a 7-day cruise with air travel with no recent weight gain with chronic orthopnea which and no recent increased weight gain prompting eventual ED evaluation. He notes he can essentially walk short distances only otherwise he becomes short of breath. Patient per report has also recently been only accidentally taking his bumex once daily instead of 2 mg po BID. He does report also a mild dry cough that hasbeen ongoing with these symptoms also. Work-up in the ED included T97.5, heart rate 108, BP 140/103, respiratory rate 22, 93% oxygenation, CBC with WBC 5.5, hemoglobin 14.6, platelet 201 without marked shift, coags with INR 2.0, PT 22.5,PTT 46.5, BMP with chloride 109, BUN/creatinine 27/1.84, glucose 127, troponin 92 with most recent prior to this noted 05/18/2372 and prior to this 04/14/2022 121, BNP 278.3, chest x-ray with right-sided pleural-based mass which is reported as unchanged in size from prior and cardiomegaly with no acute cardiopulmonary findings otherwise, rapid COVID antigen with SARS COVID negative. In the ED patient administered Lasix 40 mg IV x1. PFSH Medical History Atrial fibrillation CKD (chronic kidney disease), stage III COPD (chronic obstructive pulmonary disease) GERD (gastroesophageal reflux disease) Hyperlipidemia Hypertension NIMCO on CPAP Renal cell cancer Systolic CHF Tobacco use Home Medications albuterol 90 mcg/actuation aerosol inhaler 90 mcg inhalation Q4H PRN PRN breathing 12/07/21 [History Last Taken Unknown] cabozantinib 20 mg tablet 20 mg PO DAILY 12/07/21 [History Last Taken Unknown] cyclobenzaprine 10 mg tablet 10 mg PO TID PRN Spasms 12/07/21 [History Last Taken Unknown] ferrous sulfate 325 mg (65 mg iron) tablet 325 mg PO BID 12/07/21 [History Last Taken Unknown] warfarin 10 mg tablet 8 mg PO DAILY Check with primary doctor 12/07/21 [History Last Taken Unknown] potassium chloride 20 mEq tablet,extended release 20 meq PO DAILY #30 tabs 05/20/22 [Rx Last Taken Unknown] rosuvastatin 40 mg tablet 40 mg PO DAILY cholesterol #30 tabs 05/20/22 [Rx Last Taken Unknown] fluticasone fur. 100 mcg-umeclid 62.5 mcg-vilant 25 mcg inhalat.powder (Trelegy Ellipta) 1 inh inhalation DAILY 05/22/22 [History Last Taken Unknown] spironolactone 25 mg tablet 25 mg PO DAILY 05/22/22 [History Last Taken Unknown] pantoprazole 40 mg tablet,delayed release 40 mg PO DAILY gerd 05/25/22 [History Last Taken Unknown] bumetanide 2 mg tablet 2 mg PO BID #180 tabs 06/17/22 [Rx Last Taken Unknown] albuterol sulfate 2.5 mg/3 mL (0.083 %) solution for nebulization 2.5 mg inhalation PRN PRN Shortness Of Breath 06/27/22 [History Last Taken Unknown] carvedilol 12.5 mg tablet 18.75 mg PO BID 06/27/22 [History Last Taken Unknown] furosemide 40 mg tablet (Lasix) 40 mg PO DAILY 06/27/22 [History Last Taken Unknown] losartan 50 mg tablet 50 mg PO DAILY 06/27/22 [History Last Taken Unknown] Allergy/AdvReac Type Severity Reaction Status Date / Time lisinopril Allergy Severe Angioedema Verified 05/27/22 10:45 aspirin [ASA] Allergy Other Verified 05/27/22 10:45 mushroom [mushrooms] Allergy Hives Verified 05/27/22 10:45 Penicillins Allergy PT UNSURE Verified 05/27/22 10:45 OF REACTION shellfish derived Allergy Hives Verified 05/27/22 10:45 Family History (Updated 06/28/22 @ 00:[address] Estelita Lu MD) Father Cancer Mother Heart disease Hypertension Myocardial infarction Surgical History History of cardiac cath (~07/2021) History of cardioversion (~09/2021) History of nephrectomy, right Social History (Updated 06/28/22 @ 00:[address] Estelita Lu MD) household members: spouse and family Smoking Status: Light Smoker (<10/day) Electronic Cigarette Use: with nicotine alcohol intake: current alcohol intake frequency: a few times a month substance use type: does not use ROS ROS Narrative Admission Review of Systems: CONSTITUTIONAL: No weight loss, fever, chills, + weakness or fatigue. HEENT: Eyes: No visual loss, blurred vision, double vision or yellow sclerae. Ears, Nose, Throat: No hearing loss, sneezing, congestion, runny nose or sore throat. SKIN: No rash or itching, lesions, wounds. CARDIOVASCULAR: + Chest pain (tightness), occasional palpitations, chronic orthopnea. No edema, syncopal events. RESPIRATORY: + Shortness of breath, cough without marked sputum, wheezing, No hemoptysis. GASTROINTESTINAL: No anorexia, nausea, vomiting or diarrhea, abdominal pain, melena, BRBPR. GENITOURINARY: No dysuria, frequency, urgency or retention. NEUROLOGICAL: No headache, dizziness, syncope, paralysis, ataxia, numbness or tingling in the extremities, focal weakness, change in bowel or bladder control, seizure. MUSCULOSKELETAL: + muscle, back pain, joint pain or stiffness. HEMATOLOGIC: + anemia, bleeding or bruising. LYMPHATICS: No enlarged nodes. No history of splenectomy. PSYCHIATRIC: No history of depression or anxiety. ENDOCRINOLOGIC: No reports of sweating, cold or heat intolerance. No polyuria or polydipsia. ALLERGIES: + history of hives, angioedema. Vital Signs Vital Signs Vital Signs: 06/27/22 23:04 06/27/22 23:09 06/27/22 23:44 Temperature 97.5 F L Temperature Source Temporal Pulse Rate 108 H 110 H Respiratory Rate 22 H 26 H Respiratory Effort Short of Breath Labored Respiratory Pattern Tachypnea Blood Pressure 140/103 H 148/75 H Blood Pressure Mean 115 99 Pulse Ox 93 94 Oxygen Delivery Method Room Air Room Air Weight Weight: 278 lb 7.101 oz Body Mass Index (BMI) 38.8 Physical Exam Narrative Physical Examination: General: Awake, alert, oriented x 3 and cooperative, seated upright in the ED bed. Skin: Normal color, normal turgor, no icterus, no cyanosis. HEENT: AT/NC, EOMI, PERRLA, MMM, no carotid bruits, difficult to discern JVD secondary to very thickened neck. Lungs: Extremely diminished, greater bases, occasional very soft distant expiratory wheeze, mildly increased respiratory rate but no distress, no appreciated rales or rhonchi. Heart: Irregular irregular; no appreciated gallop, rub or murmur. Abdomen: Soft, obese, NTTP, ND, distant normal BS, no HSM. Extremities: No cyanosis, no clubbing nor peripheral pitting edema noted. Neurological: Patient awake, alert, oriented as noted, cognitive function intact; pupils equally reactive to light and accommodation, cranial nerves II-XII grossly normal, moving all 4 extremities, no focal deficits, strength moderately global decrease secondary to acute presentation complaints. Psychiatric: Affect appears fatigued, mildly increased respiratory rate but no overt distress, no acute evidence of depressive or anxiety feelings. Results Lab / Micro Data Result Diagrams: 06/27/22 23:15 06/27/22 23:15 Labs: Laboratory Results - last 24 hr 06/27/22 23:15: WBC 5.5, RBC 4.24 L, Hgb 14.6, Hct 43.8, MCV 103.3 H, MCH 34.4 H, MCHC 33.3, RDW Std Deviation 67.8 H, RDW Coeff of Lizzie 17.9 H, Plt Count 201, MPV 11.2, Immature Gran % (Auto) 0.900, Neut % (Auto) 75.4 H, Lymph % (Auto) 16.8 L, Barrow % (Auto) 6.0, Eos % (Auto) 0.5, Baso % (Auto) 0.4, Absolute Neuts (auto) 4.2, Absolute Lymphs (auto) 0.93, Nucleated RBC % 2.9 06/27/22 23:15: PT 22.5 H, INR 2.0, APTT 46.5 H 06/27/22 23:15: Sodium 140, Potassium 3.5, Chloride 109 H, Carbon Dioxide 26.0, Anion Gap 5, BUN 27 H, Creatinine 1.84 H, Estim Creat Clear Calc 46.61, Est GFR (MDRD) Af Amer 49 L, Est GFR (MDRD) Non-Af 40 L, BUN/Creatinine Ratio 14.7, Glucose 127 H, Calcium 8.9, Troponin I High Sens 92 H 06/27/22 23:15: B-Natriuretic Peptide 278.3 H Micro: Microbiology 06/27/22 23:30 Nasal Secretion SARS-CoV-2 Antigen (Rapid) - Final Radiology Impression Chest X-Ray 06/27/22 23:19 IMPRESSION: No change in right-sided pleural-based mass. Cardiomegaly. Electronically Signed: Lul Peters MD at 23:42 EDT , Assessment & Plan Assessment/Plan (1) Dyspnea: PLAN: Plan The patient is a 57 y/o M w/ PMHx: Obesity, NIMCO on CPAP, PAF s/p prior cardioversion on coumadin, COPD, HTN, HLD, GERD, Metastatic renal CA s/p R nephrectomy, Tobacco use who presents to the [facility] ED on 06/27/22 with history of worsening dyspnea over the last 7 to 10 days with associated mild chest discomfort recently completing a 7-day cruise with air travel included with symptoms improved with rest with no recent weight gain with chronic orthopnea which and no recent increased weight gain prompting eventual ED evaluation. #1. Dyspnea, chest discomfort, multifactorial, secondary to paroxsymal atrial fibrillation with RVR with elevated indeterminate cardiac enzyme and Possible CHF Exacerbation #2 as well as #3 and #4: EKG in ED w/ atrial fibrillation w/ RVR. Will admit to PCU, maintain on telemetry, obtain cardiac enzyme serial set to be cautious, obtain magnesium level, most recent echocardiogram as noted 04/14/2022, obtain TSH level. We will continue Coumadin with INR trending. Continue patient home Coreg regimen with dose x 1 now. #2. Chronic systolic CHF, possibly secondary to recently taking his medications wrong: In the ED patient administered Lasix 40 mg IV x1 however chest x-ray with no overt failure, BNP lower than previous, but he has been incorrectly taking his bumex although suspect could certainly moreso from atrial fibrillation with RVR and potentially his underlying metastatic renal cancer with right-sided pleural- based mass although similar in size per chest x-ray. 04/14/2022 echocardiogram with normal LV size, moderate concentric LVH, EF 40%, mild to moderate global hypokinesis LV, LA moderately enlarged, RA moderately enlarged, mild EDITH. We will continue coumadin with INR trending, Coreg, spironolactone, losartan, statin therapy, will pulse dose with IV lasix and transition back to bumex 06/29/22 evening. #3. Acute on chronic COPD exacerbation: Will maintain on oxygen with wean as tolerated to room air although currently not using supplementation, will hold home inhalers and especially given #1 we will transition to ATC budesonide therapy, PRN albuterol, IV methylprednisolone, HOB, IS parameters, patient with nonproductive cough but if able to give sputum's would certainly order sputum culture but at this point will obtain full respiratory viral panel, COVID antigen negative, procalcitonin requested. Patient does report that his aerosol nebulizer machine at home is broken therefore case management/social work will need to assist with this on discharge. #4. Metastatic renal cancer to the bone: History of right renal cancer stage IV with mets to the right ribs and L4 06/2021, soft tissue/right chest wall mass biopsy 07/01/2021 demonstrated metastatic renal cell cancer, treated withcabozantinib and nivolumab eventually transitioned off clinical trial secondary to insurance change, palliative radiation lumbar spine 12/2021, 02/06/2022 right radical nephrectomy at [facility], CT scan on 03/26/2022 showed no evidence of progressive disease, will continue home cabozantinib. Patient currently following with Dr. Botello with last evaluation noted 05/27/2022 with plan 3-month follow-up. Mag, Phos pending. May consider repeat CT chest if not improving w/ interventions #1 and #2. Low suspicion for PE given coumadin ongoing and INR therapeutic. #5. Chronic Kidney Disease Stage III, unclear subtype: Admission BUN/Cr 27/1.84, baseline renal function appears primarily 1.5-1.9, most recently 05/20/2022 creatinine 1.78, repeat BMP in AM. #6. Chronic anemia/iron deficiency anemia: Admission hemoglobin 14.6, baseline hemoglobin more recently 13-14, stable, continue to trend, continue iron supplementation. #7. Chronic COPD: We will temporally hold home inhaler, in the interim transition to ATC budesonide therapy, PRN albuterol, HOB, IS parameters. #8. Hypertension: Continue home regimen including Lasix, Coreg, losartan, spironolactone, bumetanide, PRN hydralazine. #9. Hyperlipidemia: We will continue patient on statin therapy. FLP in AM. #10. Tobacco Abuse: Encouraged cessation, inpatient consultation per RT, NR if desired. #11. Obesity: Weight loss and lifestyle changes encouraged. #12. GERD: Continue home PPI. #13. NIMCO: CPAP nightly. #14. DVT prophylaxis: Continue Coumadin with INR trending, admission INR therapeutic 2.0. #15. CODE status: Patient HCPOA is his who is present and living will is currently in place. Discussed CODE status at length including difference between FULL code, DNR-CCA and DNR-CC status. Following discussions about the differences in these status, requested Full Code status. Advanced Care Planning Face to Face Time: 16 minutes. Admission Evaluation Time spent evaluating chart, patient history, patient evaluation, care planning and discussion with specialists: 75 minutes. Charges/Coding Visit Charges Inpatient E&M: 89620 Init Hosp L3 Procedures Hospitalists Procedures: 62531 Advncd Care Plan 30 Min 06/28/22 0052 <Electronically signed by Estelita Lu MD> Cosigner Signature (if applicable): CC: Dr. Estelita Lu MD; Dr. Jose Ramon Turner MD~ Signed [facility] Work Phone: History of Present illness Narrative* 57-year-old male referred to me for cytoreductive nephrectomy * Referred by Dr. Adriana Hodge * Complex oncologic history, please see scanned in records in the referral/consult letter section. * PMH: NIMCO on CPAP, hypertension, GERD, hyperlipidemia, prediabetes (A1c low, 6%), A. fib on AC * PSH: No prior abdominal surgery * BMI 35.4 * Long history of cigar smoking, 40+ years. * 06/2021 -presented to Dr. Hodge's clinic for evaluation of a 7 cm right renal mass with metastatic lesions x2-right fifth rib metastasis and L4 metastasis. Metastases were impressive in size, right rib lesion approximately 10 cm, L4 lesion 6.8 cm. * PSA 0.66, creatinine 1.12 GFR 77, LFTs WNL, hemoglobin 15.6 * Chest wall biopsy: Clear-cell RCC * Patient was referred to medical oncology, received Cabo/Nivo. Developed pneumonitis and therefore Nivo was held. * Due to inability to tolerate I/O, multidisciplinary plan developed between urology, medical oncology, radiation oncology at [facility] was local therapy to metastatic sites and cytoreductive nephrectomy. * 12/08/2021-echo with EF 35%, LV and RV enlargement and hypokinesis * 12/26/2021-patient completed radiation to chest wall and L4 lesion * Patient has remained on cabo * Patient was scheduled for nephrectomy with Dr. Adriana Hodge, due to insurance issues patient could not be operated on at [facility], referred to pr for nephrectomy. * 01/19/2022-patient scheduled for laparoscopic nephrectomy 02/03 * 01/20/2022-patient presented to [place] ER with shortness of breath * 01/27/2022-patient presented to [facility] with persistence of subjective dyspnea, expiratory wheezing * 01/29/2022-patient represented to [place] ED with chest tightness and shortness of breath. Diagnosed with CHF and pneumonia. He was prescribed cefdinir 300 mg p.o. twice daily x7 days, Lasix 40 mg daily p.o. for 14 days. * 02/02/2022-canceled nephrectomy for 02/03. Called patient to discuss, subjectively feels back to baseline following diuresis and antibiotics. * OR 02/06/2022-uncomplicated laparoscopic nephrectomy. EBL 75 cc. * Creatinine 1.48, GFR 54 * Pathology-renal cell carcinoma, 5.3 cm, grade 3, invades renal vein, perihilar, tissue. Margins negative. * pT3aNx known metastatic disease. * Follow-up 04/03/2022-doing very well postoperatively. No postoperative pain. He reports his subjective dyspnea that he was having preoperatively has improved somewhat. No excessive fatigue. Appetite is normal. Normal bowel function. [id number] [id number] DO Work Phone: Hospital Discharge instructions Additional Instructions Take the antibiotic as prescribed until completely gone, and also your torsemide, but take 1 tablet 40 mg twice daily for the next 3 days to help get fluid off, then go back to your usually prescribed 1 tablet 40 mg once daily. Do what ever your doctors have recommended regarding your other medications such as warfarin, and make sure you contact your surgeon regarding these acute issues prior to your scheduled surgery. Only fill and take the Lasix as a replacement for torsemide if you do not already have it.[facility] Work Phone: Reason for referral (narrative)* Diagnostic Procedure Only (Routine) - Closed Specialty Diagnoses / Procedures Referred By Contac t Referred To Contact MOLECULAR & FUNCTIONAL IMAGING Diagnoses Malignant neoplasm of kidney, unspecified laterality (HCC) Malignant neoplasm of kidney excluding renal pelvis, unspecified laterality (HCC) Procedures NM BONE WHOLE BODY BONE &/JOINT IMAGING WHOLE BODY Adriana Hodge MD [address] [place] [address] Molecular & Functional Imaging [address] [place] [address] Referral ID Status Reason Start Date Expiration Date V isits Requested Visits Authorized [id number] Closed Auto-Generate d Referral 06/26/2021 08/10/2021 2 2 [facility] for referral (narrative)* Outpatient Procedure (Routine) - Authorized Specialty Diagnoses / Procedures Referred By Contac t Referred To Contact [facility] [place] Diagnoses Malignant neoplasm of right kidney, except renal pelvis (HCC) Procedures ECHO ECHO TTHRC R-T 2D W/WOM-MODE COMPL SPEC&COLR D Stephany Ceballos PA-C [address] [place] [id number] [address] [address] Referral ID Status Reason Start Date Expiration Date Visits Requested Visits Authorized [id number] Authorized Auto-Generat ed Referral 07/11/2021 07/11/2022 1 1 * Outpatient Procedure (Routine) - Authorized Specialty Diagnoses / Procedures Referred By Contac t Referred To Contact [facility] Diagnoses Malignant neoplasm of right kidney, except renal pelvis (HCC) Procedures ECG COMPLETE ECG ROUTINE ECG W/LEAST 12 LDS W/I&R Stephany Ceballos PA-C [address] [place] [address] [address] Referral ID Status Reason Start Date Expiration Date Visits Requested Visits Authorized [id number] Authorized Auto-Generat ed Referral 07/11/2021 07/11/2022 1 1 [facility] for referral (narrative)* Reason for Referral: impaired mobility, gait training, impaired cognition/safety awareness [facility] Outpatient Procedure (Routine) - Denied Specialty Diagnoses / Procedures Referred By Contac t Referred To Contact [facility] [place] Diagnoses Acute decompensated heart failure (HCC) Paroxysmal atrial fibrillation (HCC) Procedures ECHO LIMITED ECHO TRANSTHORAC R-T 2D W/WO M-MODE REC COMP Sayra Tello MD [address] [place] [address] [facility] [place] [address] [place] [address] Referral ID Status Reason Start Date Expiration Date V isits Requested Visits Authorized [id number] Denied Auto-Generate d Referral 02/16/2022 02/16/2023 1 0 [facility] for referral (narrative)* Diagnostic Procedure Only (Routine) - Authorized Specialty Diagnoses / Procedures Referred By [facility] Referred To Contact MOLECULAR & FUNCTIONAL IMAGING Diagnoses Renal cell carcinoma of right kidney (HCC) Procedures NM BONE WHOLE BODY BONE &/JOINT IMAGING WHOLE BODY Haylee Wilburn MD [address] [place] [address] Molecular & Functional Imaging [address] [place] [address] Referral ID Status Reason Start Date Expiration Date Visits Requested Visits Authorized [id number] Authorized Auto-Generat ed Referral 03/11/2022 04/10/2023 1 1 * MRI/CT (Routine) - Authorized Specialty Diagnoses / Procedures Referred By [facility] Referred To Contact CT IMAGING Diagnoses Renal cell carcinoma of right kidney (HCC) Procedures CT CHEST W IVCON DIAGNOSTIC COMPUTED TOMOGRAPHY THORAX W/CONTRAST Haylee Wilburn MD [address] [place] [address] Ct Imaging Referral ID Status Reason Start Date Expiration Date Visits Requested Visits Authorized [id number] Authorized Auto-Generat ed Referral 03/11/2022 04/10/2023 1 1 * MRI/CT (Routine) - Authorized Specialty Diagnoses / Procedures Referred By [facility] Referred To Contact CT IMAGING Diagnoses Renal cell carcinoma of right kidney (HCC) Procedures CT ABD/PEL W IVCON CT ABD & PELVIS W/CONTRAST Haylee Wilburn MD [address] [place] [address] Ct Imaging Referral ID Status Reason Start Date Expiration Date Visits Requested Visits Authorized [id number] Authorized Auto-Generat ed Referral 03/11/2022 04/26/2022 1 1 [facility] for referral (narrative)* Outpatient Procedure (Routine) - Closed Specialty Diagnoses / Procedures Referred By Sujatha vasquez Referred [facility] Diagnoses Acute decompensated heart failure (HCC) Paroxysmal atrial fibrillation (HCC) Procedures ECHO LIMITED ECHO TRANSTHORAC R-T 2D W/WO M-MODE REC COMP Sayra Tello MD [address] [facility], [address] [place] [address] [facility] [place] [address] [place] [address] Referral ID Status Reason Start Date Expiration Date V isits Requested Visits Authorized [id number] Closed Patient Cleared - INN Insurance Found 02/19/2022 03/07/2022 1 1 [facility] for referral (narrative)No reason for [facility] Work [facility]: Reason for visit Narrative* Diagnostic Procedure Only (Routine) - Closed Specialty Diagnoses / Procedures Referred By Sujatha vasquez Referred To Contact MOLECULAR & FUNCTIONAL IMAGING Diagnoses Malignant neoplasm of kidney, unspecified laterality (HCC) Malignant neoplasm of kidney excluding renal pelvis, unspecified laterality (HCC) Procedures NM BONE WHOLE BODY BONE &/JOINT IMAGING WHOLE BODY Adriana Hodge MD [address] [place] [address] Molecular [facility] Imaging [address] [place] [address] Referral ID Status Reason Start Date Expiration Date V isits Requested Visits Authorized [id number] Closed Auto-Generate d Referral 06/26/2021 08/10/2021 2 2 [facility] for visit Narrative* Auth/Cert Specialty Diagnoses / Procedures Referred By Sujatha vasquez Referred To Contact Diagnoses Nonrheumatic mitral valve regurgitation Procedures CATH PLMT L HRT & ARTS W/NJX & ANGIO IMG S&I PRQ TRLUML CORONARY STENT W/ANGIO ONE ART/BRNCH CORONARY ANGIO W CATH PLACE W IMAGE INJECT & INTERP W LT HEART CATH W INJECT LT VENTRGRAPHY INSERT INTRACORONARY STENT-PER MAJOR VESSEL OR BRANCH [facility] [employer] [address] [place] [address] Referral ID Status Reason Start Date Expiration Date Visits Re quested Visits Authorized [id number] 1 1 [facility] for visit Narrative* Outpatient Procedure (Routine) - Closed Specialty Diagnoses / Procedures Referred By Sujatha vasquez Referred To [facility] Diagnoses Malignant neoplasm of right kidney, except renal pelvis (HCC) Procedures ECG COMPLETE ECG ROUTINE ECG W/LEAST 12 LDS W/I&R Stephany Ceballos PA-C [address] [place] [id number] [facility] [place] [address] [place] [address] Referral ID Status Reason Start Date Expiration Date V isits Requested Visits Authorized [id number] Closed Auto-Generate d Referral 07/11/2021 07/11/2022 1 1 [facility] for visit Narrative* Auth/Cert Specialty Diagnoses / Procedures Referred By Sujatha vasquez Referred To Contact HOSP INPATIENT Diagnoses Paroxysmal atrial fibrillation Acute decompensated heart failure (HCC) Paroxysmal atrial fibrillation (HCC) Procedures INITIAL HOSPITAL CARE/DAY 70 MINUTES Hosp [facility] [address] [place] [id number] Referral ID Status Reason Start Date Expiration Date Visits Re quested Visits Authorized [id number] 1 1 [facility] for visit Narrative* Diagnostic Procedure Only (Routine) - Closed Specialty Diagnoses / Procedures Referred By Sujatha vasquez Referred To Contact MOLECULAR & FUNCTIONAL IMAGING Diagnoses Renal cell carcinoma of right kidney (HCC) Procedures NM BONE WHOLE BODY BONE &/JOINT IMAGING WHOLE BODY Haylee Wilburn MD [address] [place] [address] Molecular [facility] Functional Imaging [address] [place] [id number] Referral ID Status Reason Start Date Expiration Date V isits Requested Visits Authorized [id number] Closed Auto-Generate d Referral 03/11/2022 04/10/2023 [facility] Procedure (Routine) - Closed Specialty Diagnoses / Procedures Referred By Contac t Referred To Contact [facility] Diagnoses Acute decompensated heart failure (HCC) Paroxysmal atrial fibrillation (HCC) Procedures ECHO LIMITED ECHO TRANSTHORAC R-T 2D W/WO M-MODE REC COMP Sayra Tello MD [address], [address] [place] [address] [facility] [place] [facility] [place] [address] Referral ID Status Reason Start Date Expiration Date V isits Requested Visits Authorized [id number] Closed Patient Cleared - INN Insurance Found 02/19/2022 03/07/2022 1 1 [facility] Summary Purpose Family History No Family History Records Found Relationship Condition Age at Onset Recorded Date/T hermelinda Not Specified Cardiac disease Unknown Malignant neoplasm Unknown Relationship Condition Age at Onset Recorded Date/T hermelinda father Malignant neoplasm Unknown mother Cardiac disease Unknown Hypertension Unknown Myocardial infarction Unknown Advance Directives No Advanced Directives Records Found Advance Directive Response Recorded Date/ Time Do You Have an Advance Directive? NO June 19, 2021 3:50pm Documents on File Type Date Recorded Patient Case Work Aide Expl anation Advance Directive(s) 02/05/2020 6:22 PM Advance Directive(s) 11/14/2019 1:53 PM Documents on File Type Date Recorded Patient Case Work Aide Expl anation Advance Directive(s) 02/05/2020 6:22 PM Advance Directive(s) 11/14/2019 1:53 PM Documents on File Type Date Recorded Patient Case Work Aide Expl anation Advance Directive(s) 06/26/2021 2:39 PM Advance Directive(s) 02/05/2020 6:22 PM Advance Directive(s) 11/14/2019 1:53 PM Documents on File Type Date Recorded Patient Case Work Aide Expl anation Advance Directive(s) 06/26/2021 2:39 PM Advance Directive(s) 02/05/2020 6:22 PM Advance Directive(s) 11/14/2019 1:53 PM Advance Directive Response Recorded Date/ Time Living Will No June 04, 2019 5:40pm Power of Golf Club Maker No June 03 5:40pm Documents on File Type Date Recorded Patient Case Work Aide Expl anation Advance Directive(s) 07/31/2021 5:47 PM Advance Directive(s) 06/26/2021 2:39 PM Advance Directive(s) 02/05/2020 6:22 PM Advance Directive(s) 11/14/2019 1:53 PM Documents on File Type Date Recorded Patient Case Work Aide Expl anation Advance Directive(s) 08/05/2021 5:50 AM Advance Directive(s) 07/31/2021 5:47 PM Advance Directive(s) 06/26/2021 2:39 PM Advance Directive(s) 02/05/2020 6:22 PM Advance Directive(s) 11/14/2019 1:53 PM Documents on File Type Date Recorded Patient Case Work Aide Expl anation Advance Directive(s) 08/05/2021 5:50 AM Advance Directive(s) 07/31/2021 5:47 PM Advance Directive(s) 06/26/2021 2:39 PM Advance Directive(s) 02/05/2020 6:22 PM Advance Directive(s) 11/14/2019 1:53 PM Documents on File Type Date Recorded Patient Case Work Aide Expl anation Advance Directive(s) 08/17/2021 3:47 PM Advance Directive(s) 08/05/2021 5:50 AM Advance Directive(s) 07/31/2021 5:47 PM Advance Directive(s) 06/26/2021 2:39 PM Advance Directive(s) 02/05/2020 6:22 PM Advance Directive(s) 11/14/2019 1:53 PM Documents on File Type Date Recorded Patient Case Work Aide Expl anation Advance Directive(s) 08/17/2021 3:47 PM Advance Directive(s) 08/05/2021 5:50 AM Advance Directive(s) 07/31/2021 5:47 PM Advance Directive(s) 06/26/2021 2:39 PM Advance Directive(s) 02/05/2020 6:22 PM Advance Directive(s) 11/14/2019 1:53 PM Documents on File Type Date Recorded Patient Case Work Aide Expl anation Advance Directive(s) 09/02/2021 6:28 PM Advance Directive(s) 08/17/2021 3:47 PM Advance Directive(s) 08/05/2021 5:50 AM Advance Directive(s) 07/31/2021 5:47 PM Advance Directive(s) 06/26/2021 2:39 PM Advance Directive(s) 02/05/2020 6:22 PM Advance Directive(s) 11/14/2019 1:53 PM Latest Code Status on File Code Status Date Activated Date Inactivated Comments Full Code 09/03/2021 12:06 AM Full Code Order Discussed With: Patient and Surr ogate Decision Maker Documents on File Type Date Recorded Patient Case Work Aide Expl anation Advance Directive(s) 09/02/2021 6:28 PM Advance Directive(s) 08/17/2021 3:47 PM Advance Directive(s) 08/05/2021 5:50 AM Advance Directive(s) 07/31/2021 5:47 PM Advance Directive(s) 06/26/2021 2:39 PM Advance Directive(s) 02/05/2020 6:22 PM Advance Directive(s) 11/14/2019 1:53 PM Latest Code Status on File Code Status Date Activated Date Inactivated Comments Full Code 09/03/2021 12:06 AM Latest Code Status on File Code Status Date Activated Date Inactivated Comments Full Code 09/03/2021 12:06 AM 09/04/2021 6:22 PM Latest Code Status on File Code Status Date Activated Date Inactivated Comments Full Code 09/03/2021 12:06 AM 09/04/2021 6:22 PM Documents on File Type Date Recorded Patient Case Work Aide Expl anation Advance Directive(s) 09/23/2021 1:52 PM Advance Directive(s) 09/02/2021 6:28 PM Advance Directive(s) 08/17/2021 3:47 PM Advance Directive(s) 08/05/2021 5:50 AM Advance Directive(s) 07/31/2021 5:47 PM Advance Directive(s) 06/26/2021 2:39 PM Advance Directive(s) 02/05/2020 6:22 PM Advance Directive(s) 11/14/2019 1:53 PM Latest Code Status on File Code Status Date Activated Date Inactivated Comments Full Code 09/23/2021 2:43 PM 09/26/2021 10:06 PM Full Code Order Discussed With: Patient Full Code 09/03/2021 12:06 AM 09/04/2021 6:22 PM Documents on File Type Date Recorded Patient Case Work Aide Expl anation Advance Directive(s) 09/23/2021 1:52 PM Advance Directive(s) 09/02/2021 6:28 PM Advance Directive(s) 08/17/2021 3:47 PM Advance Directive(s) 08/05/2021 5:50 AM Advance Directive(s) 07/31/2021 5:47 PM Advance Directive(s) 06/26/2021 2:39 PM Advance Directive(s) 02/05/2020 6:22 PM Advance Directive(s) 11/14/2019 1:53 PM Latest Code Status on File Code Status Date Activated Date Inactivated Comments Full Code 09/23/2021 2:43 PM 09/26/2021 10:06 PM Full Code 09/03/2021 12:06 AM 09/04/2021 6:22 PM Documents on File Type Date Recorded Patient Case Work Aide Expl anation Advance Directive(s) 10/06/2021 1:03 PM Advance Directive(s) 09/23/2021 1:52 PM Advance Directive(s) 09/02/2021 6:28 PM Advance Directive(s) 08/17/2021 3:47 PM Advance Directive(s) 08/05/2021 5:50 AM Advance Directive(s) 07/31/2021 5:47 PM Advance Directive(s) 06/26/2021 2:39 PM Advance Directive(s) 02/05/2020 6:22 PM Advance Directive(s) 11/14/2019 1:53 PM Advance Directive Response Recorded Date/ Time Living Will No December 07 2:19pm Power of Golf Club Maker No December 07 2:19pm Advance Directive Response Recorded Date/ Time Living Will No January 20 7:21pm Power of Golf Club Maker No January 20, 2022 7:21pm Advance Directive Response Recorded Date/ Time Name of Medical Power of Golf Club Maker January 29, 2022 11:59am Living Will No January 29 11:59am Power of Golf Club Maker Yes January 29, 2022 11:59am Advance Directive Response Recorded Date/ Time Name of Medical Power of Golf Club Maker January 29, 2022 11:59am Name of Medical Power of Golf Club Maker MIYARYAN WHITEHEADPita YANEZ- April 13, 2022 10:43pm Living Will No April 13 10:43pm Power of Golf Club Maker Yes April 13, 2022 10:43pm Advance Directive Response Recorded Date/ Time Name of Medical Power of Golf Club Maker January 29, 2022 11:59am Name of Medical Power of Golf Club Maker Miya AmayaFrench mane April 14, 2022 1:15am Living Will No April 14 1:15am Power of Golf Club Maker Yes April 14, 2022 1:15am Advance Directive Response Recorded Date/ Time Name of Medical Power of Golf Club Maker January 29, 2022 12:59pm Name of Medical Power of Golf Club Maker Miyaryan Leyva valeriehoward April 14, 2022 2:15am Name of Medical Power of Golf Club Maker miya yanez May 18, 2022 3:35pm Living Will Yes May 18, 2022 3:35pm Power of Golf Club Maker Yes May 18 3:35pm Advance Directive Response Recorded Date/ Time Name of Medical Power of Golf Club Maker January 29, 2022 12:59pm Name of Medical Power of Golf Club Maker Miyaryan Wynne-Xiomara valerieryan April 14, 2022 2:15am Name of Medical Power of Golf Club Maker Miya Yanez May 18, 2022 7:01pm Living Will Yes May 18, 2022 7:01pm Power of Golf Club Maker Yes May 18 7:01pm Advance Directive Response Recorded Date/ Time Name of Medical Power of Golf Club Maker Miya Leyva valeriehoward April 14, 2022 2:15am Name of Medical Power of Golf Club Maker Miya Yanez May 18, 2022 7:01pm Name of Medical Power of Golf Club Maker June 27, 2022 11:12pm Living Will Yes June 27, 2022 11:12pm Power of Golf Club Maker Yes June 27 11:12pm Advance Directive Response Recorded Date/ Time Name of Medical Power of Golf Club Maker Miya Leyva valeriehoward April 14, 2022 2:15am Name of Medical Power of Golf Club Maker Miya Yanez May 18, 2022 7:01pm Name of Medical Power of Golf Club Maker Miya Yanez June 28, 2022 1:12am Living Will No June 28, 2022 1:12am Power of Golf Club Maker Yes June 28 1:12am Advance Directive Response Recorded Date/ Time Name of Medical Power of Golf Club Maker Miya Yanez May 18, 2022 7:01pm Name of Medical Power of Golf Club Maker Miya Yanez June 28, 2022 1:12am Living Will No June 28, 2022 1:12am Power of Golf Club Maker Yes June 28 1:12am Advance Directive Response Recorded Date/ Time Name of Medical Power of Golf Club Maker Lena Yanez December 15, 2022 4:41pm Living Will No December 15 4:41pm Power of Golf Club Maker Yes December 15, 2022 4:41pm Advance Directive Response Recorded Date/ Time Name of Medical Power of Golf Club Maker Lena Yanez December 15, 2022 3:41pm Living Will No December 15 3:41pm Power of Golf Club Maker Yes December 15, 2022 3:41pm Advance Directive Response Recorded Date/ Time Living Will No December 15 3:41pm Power of Golf Club Maker Yes December 15, 2022 3:41pm Advance Directive Response Recorded Date/ Time Living Will No December 15 4:41pm Power of Golf Club Maker Yes December 15, 2022 4:41pm Date Activated Date Inactivated Comments 09/23/2021 2:43 PM 09/26/2021 10:06 PM Question Answer Comments Full Code Order Discussed With: Patient Date Activated Date Inactivated Comments 09/03/2021 12:06 AM 09/04/2021 6:22 PM Question Answer Comments Full Code Order Discussed With: Patient and Surr ogate Decision Maker Date Activated Date Inactivated Comments 09/23/2021 2:43 PM 09/26/2021 10:06 PM Question Answer Comments Full Code Order Discussed With: Patient Date Activated Date Inactivated Comments 09/03/2021 12:06 AM 09/04/2021 6:22 PM Question Answer Comments Full Code Order Discussed With: Patient and Surr ogate Decision Maker Advance Directive Response Recorded Date/ Time Living Will No December 15 4:41pm Do you have a Healthcare Power of Golf Club Maker? Yes December 15, 2022 4:41pm Reason for Referral Specialty Diagnoses / Procedures Referred By Contac t Referred To Contact CT IMAGING Diagnoses Malignant neoplasm of kidney, unspecified laterality (HCC) Malignant neoplasm of kidney excluding renal pelvis, unspecified laterality (HCC) Procedures CT ABD/PEL WO IVCON CT ABD & PELVIS W/O CONTRAST dAriana Hodge MD [address] [place] [address] Ct Imaging Referral ID Status Reason Start Date Expiration Date Visits Requested Visits Authorized [id number] Pending Review Auto-Generat ed Referral 06/23/2021 07/23/2022 1 1 Specialty Diagnoses / Procedures Referred By Contac t Referred To Contact CT IMAGING Diagnoses Malignant neoplasm of kidney, unspecified laterality (HCC) Malignant neoplasm of kidney excluding renal pelvis, unspecified laterality (HCC) Procedures CT ABD/PEL W IVCON CT ABD & PELVIS W/CONTRAST Adriana Hodge MD [address] [place] [address] Ct Imaging Referral ID Status Reason Start Date Expiration Date Visits Requested Visits Authorized [id number] Pending Review Auto-Generat ed Referral 06/23/2021 07/23/2022 1 1 Specialty Diagnoses / Procedures Referred By Contac t Referred To Contact MOLECULAR & FUNCTIONAL IMAGING Diagnoses Malignant neoplasm of kidney, unspecified laterality (HCC) Malignant neoplasm of kidney excluding renal pelvis, unspecified laterality (HCC) Procedures NM BONE WHOLE BODY BONE &/JOINT IMAGING WHOLE BODY Adriana Hodge MD [address] [place] [address] Molecular & Functional Imaging [address] [place] [address] Referral ID Status Reason Start Date Expiration Date Visits Requested Visits Authorized [id number] Pending Review Auto-Generat ed Referral 06/23/2021 07/23/2022 1 1 Specialty Diagnoses / Procedures Referred By Contac t Referred To Contact Oncology Diagnoses Malignant neoplasm of kidney, unspecified laterality (HCC) Malignant neoplasm of kidney excluding renal pelvis, unspecified laterality (HCC) Procedures CONSULT TO ONCOLOGY OFFICE/OUTPATIENT [facility] 60-74 MINUTES Adriana Hodge MD [address] [place] [address] Referral ID Status Reason Start Date Expiration Date Visits Requested Visits Authorized [id number] Pending Review PCP Requested Referral 06/23/2021 06/23/2022 1 1 Specialty Diagnoses / Procedures Referred By Contac t Referred To Contact RADIO CT SCAN [facility] Diagnoses Malignant neoplasm of kidney, unspecified laterality (HCC) Malignant neoplasm of kidney excluding renal pelvis, unspecified laterality (HCC) Procedures CT ABD/PEL W IVCON CT ABD & PELVIS W/CONTRAST Adriana oHdge MD [address] [place] [address] Scan [facility] [address] [place] [address] Referral ID Status Reason Start Date Expiration Date V isits Requested Visits Authorized [id number] Closed Auto-Generate d Referral 06/26/2021 08/10/2021 1 1 Specialty Diagnoses / Procedures Referred By Contac t Referred To Contact MR IMAGING Diagnoses Malignant neoplasm of kidney excluding renal pelvis, unspecified laterality (HCC) Renal cell carcinoma, unspecified laterality (HCC) Procedures MRI BRAIN WO/W IVCON MRI BRAIN BRAIN STEM W/O W/CONTRAST MATERIAL Kenneth Chester MD [address] [place] [address] Mr Imaging Referral ID Status Reason Start Date Expiration Date Visits Requested Visits Authorized [id number] Authorized Auto-Generat ed Referral 07/14/2021 08/28/2021 1 1 [facility] Diagnoses / [facility] Diagnoses Malignant neoplasm of right kidney, except renal pelvis (HCC) Renal cell carcinoma, unspecified laterality (HCC) Procedures CT CHEST W IVCON DIAGNOSTIC COMPUTED TOMOGRAPHY THORAX W/CONTRAST Kenneth Chester MD [address] [place] [address] Ct Imaging Referral ID Status Reason Start Date Expiration Date V isits Requested Visits Authorized [id number] Closed Auto-Generate d Referral 07/14/2021 08/28/2021 1 1 Referral ID Status Reason Start Date Expiration Date V isits Requested Visits Authorized [id number] Closed Auto-Generate d Referral 07/14/2021 08/28/2021 1 1 Specialty Diagnoses / Procedures Referred By Contac t Referred To Contact CT IMAGING Diagnoses Malignant neoplasm of right kidney, except renal pelvis (HCC) Malignant neoplasm of kidney excluding renal pelvis, unspecified laterality (HCC) Procedures CT ABD/PEL W IVCON CT ABD & PELVIS W/CONTRAST Kenneth Chester MD [address] [place] [address] Ct Imaging Referral ID Status Reason Start Date Expiration Date Visits Requested Visits Authorized [id number] Pending Review Auto-Generat ed Referral 07/28/2021 08/27/2022 1 1 Specialty Diagnoses / Procedures Referred By Contac t Referred To Contact MR IMAGING Diagnoses Other specified disorders of kidney and ureter Procedures MRI KIDNEY WO/W IVCON MRI ABDOMEN W/O & W/CONTRAST MATERIAL Godfrey Ohara APRN.CNP [address] [employer], [address] [address] Mr Imaging Referral ID Status Reason Start Date Expiration Date Visits Requested Visits Authorized [id number] Pending Review Auto-Generat ed Referral 08/08/2021 09/07/2022 1 1 Specialty Diagnoses / Procedures Referred By Contac t Referred To Contact CT IMAGING Diagnoses Malignant neoplasm of right kidney, except renal pelvis (HCC) Malignant neoplasm of kidney excluding renal pelvis, unspecified laterality (HCC) Procedures CT CHEST W IVCON DIAGNOSTIC COMPUTED TOMOGRAPHY THORAX W/CONTRAST Stephany Ceballos PA-C [address] [place] [id number] Imaging Referral ID Status Reason Start Date Expiration Date Visits Requested Visits Authorized [id number] Pending Review Auto-Generat ed Referral 08/21/2021 09/19/2022 1 1 Specialty Diagnoses / Procedures Referred By Contac t Referred To Contact CT IMAGING Diagnoses Malignant neoplasm of right kidney, except renal pelvis (HCC) Malignant neoplasm of kidney excluding renal pelvis, unspecified laterality (HCC) Procedures CT ABD/PEL W IVCON CT ABD & PELVIS W/CONTRAST Stephany Ceballos PA-C [address] [place] [id number] Imaging Referral ID Status Reason Start Date Expiration Date Visits Requested Visits Authorized [id number] Pending Review Auto-Generat ed Referral 08/21/2021 09/19/2022 1 1 Specialty Diagnoses / Procedures Referred By Contac t Referred To Contact CT IMAGING Diagnoses Malignant neoplasm of right kidney, except renal pelvis (HCC) Procedures CT CHEST W IVCON DIAGNOSTIC COMPUTED TOMOGRAPHY THORAX W/CONTRAST Godfrey Ohara, [employer]OL [address] [place] [address] Ct Imaging Referral ID Status Reason Start Date Expiration Date Visits Requested Visits Authorized [id number] Pending Review Auto-Generat ed Referral 10/16/2021 09/26/2022 1 1 Specialty Diagnoses / Procedures Referred By Contac t Referred To Contact CT IMAGING Diagnoses Malignant neoplasm of right kidney, except renal pelvis (HCC) Procedures CT ABD/PEL W IVCON CT ABD & PELVIS W/CONTRAST Godfrey Ohara, [employer] [address] [place] [address] Ct Imaging Referral ID Status Reason Start Date Expiration Date Visits Requested Visits Authorized [id number] Pending Review Auto-Generat ed Referral 10/16/2021 09/26/2022 1 1 Specialty Diagnoses / Procedures Referred By Contac t Referred To Contact CT IMAGING Diagnoses SOB (shortness of breath) Procedures CT CHEST W IVCON PE DIAGNOSTIC COMPUTED TOMOGRAPHY THORAX W/CONTRAST Daksha Melo PA-C [address] [place] [address] Ct Imaging Referral ID Status Reason Start Date Expiration Date Visits Requested Visits Authorized [id number] Pending Review Auto-Generat ed Referral 09/02/2021 10/02/2022 1 1 Specialty Diagnoses / Procedures Referred By Contac t Referred To Contact CT IMAGING Diagnoses Malignant neoplasm of right kidney, except renal pelvis (HCC) Procedures CT CHEST W IVCON DIAGNOSTIC COMPUTED TOMOGRAPHY THORAX W/CONTRAST Adriana Hodge MD [address] [place] [address] Ct Imaging Referral ID Status Reason Start Date Expiration Date Visits Requested Visits Authorized [id number] Closed Financial Clearance Required - OON Payor OON Notification Letter Clearance not met - patient not scheduled & unable to contact patient OON/Self Pay Override 10/22/2021 11/21/2022 1 0 Specialty Diagnoses / Procedures Referred By Contac t Referred To Contact CT IMAGING Diagnoses Malignant neoplasm of right kidney, except renal pelvis (HCC) Procedures CT ABD/PEL W IVCON CT ABD & PELVIS W/CONTRAST Adriana Hodge [facility] [address] [facility] [place] [id number] Imaging Referral ID Status Reason Start Date Expiration Date Visits Requested Visits Authorized [id number] Closed Financial Clearance Required - OON Payor OON Notification Letter Clearance Not Met - Pt Rescheduled/Canc elled/Chose Not to Proceed OON/Self Pay Override 10/22/2021 11/21/2022 1 0 Specialty Diagnoses / Procedures Referred By Contac t Referred To Contact Diagnoses Renal cell carcinoma of right kidney (HCC) Procedures REFER TO PACC - PRE ANESTHESIA CONSULTATION CLINIC OFFICE/OUTPATIENT [facility] MDM 60-74 MINUTES Adriana Hodge MD [address] [place] [address] [place] [address] Referral ID Status Reason Start Date Expiration Date V isits Requested Visits Authorized [id number] Denied PCP Requested Referral 12/30/2021 12/30/2022 1 0 Specialty Diagnoses / Procedures Referred By Contac t [facility] Diagnoses Renal cell carcinoma of right kidney (HCC) Procedures ECG COMPLETE ECG ROUTINE ECG W/LEAST 12 LDS W/I&R Adriana Hodge MD [address] [place] [address] [facility] [address] [address] Referral ID Status Reason Start Date Expiration Date V isits Requested Visits Authorized [id number] Denied Auto-Generate d Referral 12/30/2021 12/30/2022 1 0 Medications Administered Section Inactive Administered Medications - up to 3 most recent administrations Medication Order MAR Action Action Date Dose Rate Site INV CABOZANTINIB 40 mg TABLET ([facility] 1820/20-983) 40 mg, ORAL, ONCE, 1 dose, On Wed08/08/21 at 1030, Take TWO 20 mg tablets once daily by mouth for 28 days. Take on an empty stomach, with no food 2 hours before and 1 hour after dosing. Swallow tablets whole, do not crush. Dispense 60 tablets. Hazardous Chemotherapy Drug: Use appropriate PPE. This drug cannot be crushed, dissolved, suspended, opened, or split on the nursing unit. Given 08/08/2021 10:30 AM EDT 40 mg Inactive Administered Medications - up to 3 most recent administrations Medication Order MAR Action Action Date Dose Rate Site INV NIVOLUMAB ([facility] 1820/20-983) 480 mg in NaCl 0.9% 100 mL 480 mg, INTRAVENOUS, Administer over 30 Minutes, ONCE, 1 dose, On Wed08/08/21 at 1030, Approx. Total Volume = 158 mL. Infuse via a 0.2 micron filter. EXP: (8hr). New Bag/Syringe/Bottle 08/08/2021 11:17 AM EDT 480 mg Inactive Administered Medications - up to 3 most recent administrations Medication Order MAR Action Action Date Dose Rate Site INV CABOZANTINIB 20 mg TABLET ([facility] 1820/20-983) 20 mg, ORAL, ONCE, 1 dose, On Wed09/11/21 at 1500, Take ONE 20 mg tablet once daily by mouth for 28 days. Take on an empty stomach, with no food 2 hours before and 1 hour after dosing. Swallow tablets whole, do not crush. Dispense 30 tablets. Hazardous Chemotherapy Drug: Use appropriate PPE. This drug cannot be crushed, dissolved, suspended, opened, or split on the nursing unit. Given 09/11/2021 3:00 PM EDT 20 mg Health Concerns Infection Onset Date Last Indicated Resolved Time COVID-19 Rule-Out 09/02/2021 09/02/2021 09/02/2021 9:55 PM EDT Chief Complaint and Reason for Visit Chief Complaint ACUTE CHF EXAC, HYPO XEMIA, A-FIB W/ RVR Reason for Visit Atrial fibrillation with RVR Hypoxemia Systolic CHF, acute Acute exacerbation of CHF (congestive heart failure) Chief Complaint ACUTE SYSTOLIC CONGE STIVE HEART FAILURE ACUTE SYSTOLIC CONGESTIVE HEART FAILURE ACUTE SYSTOLIC CONGESTIVE HEART FAILURE ACUTE SYSTOLIC CONGESTIVE HEART FAILURE PALP Reason for Visit Atrial fibrillation with RVR Hypoxemia Systolic CHF, acute Acute exacerbation of CHF (congestive heart failure) Chief Complaint ACUTE SYSTOLIC CONGE STIVE HEART FAILURE ACUTE SYSTOLIC CONGESTIVE HEART FAILURE ACUTE SYSTOLIC CONGESTIVE HEART FAILURE ACUTE SYSTOLIC CONGESTIVE HEART FAILURE PALP CHEST PAIN Reason for Visit Atrial fibrillation with RVR Hypoxemia Systolic CHF, acute Acute exacerbation of CHF (congestive heart failure) Chief Complaint PALP CHEST PAIN ACUTE ON CHRONIC HEART FAILURE Reason for Visit Acute exacerbation o f CHF (congestive heart failure) Chief Complaint PALP CHEST PAIN ACUTE ON CHRONIC HEART FAILURE ACUTE ON CHRONIC HEART FAILURE ACUTE ON CHRONIC HEART FAILURE ACUTE ON CHRONIC HEART FAILURE ACUTE ON CHRONIC HEART FAILURE Reason for Visit Elevated serum creat inine Elevated troponin I level Hypoxemia Systolic CHF, acute Acute exacerbation of CHF (congestive heart failure) Chief Complaint PALP CHEST PAIN ACUTE ON CHRONIC HEART FAILURE ACUTE ON CHRONIC HEART FAILURE STRESS TEST ACUTE ON CHRONIC HEART FAILURE ACUTE ON CHRONIC HEART FAILURE ACUTE ON CHRONIC HEART FAILURE Reason for Visit Acute exacerbation o f CHF (congestive heart failure) Hypoxemia Systolic CHF, acute Chief Complaint PALP CHEST PAIN ACUTE ON CHRONIC HEART FAILURE ACUTE ON CHRONIC HEART FAILURE STRESS TEST ACUTE ON CHRONIC HEART FAILURE ACUTE ON CHRONIC HEART FAILURE ACUTE ON CHRONIC HEART FAILURE AECHF Reason for Visit Acute exacerbation o f CHF (congestive heart failure) Hypoxemia Systolic CHF, acute CHF (congestive heart failure) Dyspnea Chief Complaint PALP CHEST PAIN ACUTE ON CHRONIC HEART FAILURE ACUTE ON CHRONIC HEART FAILURE STRESS TEST ACUTE ON CHRONIC HEART FAILURE ACUTE ON CHRONIC HEART FAILURE ACUTE ON CHRONIC HEART FAILURE AECHF AECHF AECHF Reason for Visit Acute exacerbation o f CHF (congestive heart failure) Hypoxemia Systolic CHF, acute CHF (congestive heart failure) Dyspnea Thrush Hypertension Chief Complaint ACUTE ON CHRONIC HEA RT FAILURE ACUTE ON CHRONIC HEART FAILURE STRESS TEST ACUTE ON CHRONIC HEART FAILURE ACUTE ON CHRONIC HEART FAILURE ACUTE ON CHRONIC HEART FAILURE AECHF AECHF AECHF S/P [facility] 04-13-22 CHF and AFIB (NO CONSULT) NEW-RENAL CELL CANCER PAF W/ RVR, ? CHF EXAC Reason for Visit Acute exacerbation o f CHF (congestive heart failure) Hypoxemia Systolic CHF, acute Thrush CHF (congestive heart failure) Dyspnea Cancer Renal failure CHF (congestive heart failure) Metastatic renal cell carcinoma to bone Dyspnea Chief Complaint ACUTE ON CHRONIC HEA RT FAILURE ACUTE ON CHRONIC HEART FAILURE STRESS TEST ACUTE ON CHRONIC HEART FAILURE ACUTE ON CHRONIC HEART FAILURE ACUTE ON CHRONIC HEART FAILURE AECHF AECHF AECHF S/P [facility] 04-13-22 CHF and AFIB (NO CONSULT) NEW-RENAL CELL CANCER PAF W/RVR ? CHF EXAC Shortness of breath Reason for Visit Acute exacerbation o f CHF (congestive heart failure) Hypoxemia Systolic CHF, acute Thrush CHF (congestive heart failure) Dyspnea Cancer Renal failure CHF (congestive heart failure) Metastatic renal cell carcinoma to bone Atrial fibrillation Dyspnea Elevated troponin Acute exacerbation of CHF (congestive heart failure) CKD (chronic kidney disease) Metastatic renal cell carcinoma to bone Chief Complaint AECHF AECHF AECHF S/P [facility] 04-13-22 CHF and AFIB (NO CONSULT) NEW-RENAL CELL CANCER PAF W/RVR ? CHF EXAC Shortness of breath HOSPITAL DISCHARGE F/U HOSPITAL DISCHARGE F/U RENAL CANCER 3MO LABS REVIEW CT 3MO [address] REVIEW CT Reason for Visit Thrush CHF (congestive heart failure) Dyspnea Cancer Renal failure CHF (congestive heart failure) Metastatic renal cell carcinoma to bone Renal cell cancer Metastatic renal cell carcinoma to bone Acute exacerbation of CHF (congestive heart failure) Dyspnea Elevated troponin Metastatic renal cell carcinoma to bone Renal cell cancer Chief Complaint RENAL CANCER 3MO LABS REVIEW CT [address] CT 1 Y FU E ORDER RESP INSUFFICIENCY, PNEUMONIA, CHF RESP INSUFFICIENCY, PNEUMONIA, CHF RESP INSUFFICIENCY, PNEUMONIA, CHF RESP INSUFFICIENCY, PNEUMONIA, CHF Reason for Visit Metastatic renal maggie l carcinoma to bone Renal cell cancer Renal failure CHF (congestive heart failure) Abnormal chest x-ray Acute respiratory insufficiency Acute systolic heart failure Hemoptysis Pneumonia Shortness of breath Warfarin-induced coagulopathy Acute on chronic renal insufficiency Acute on chronic systolic heart failure Chronic a-fib Chief Complaint 1 Y FU E ORDER RESP INSUFFICIENCY, PNEUMONIA, CHF RESP INSUFFICIENCY, PNEUMONIA, CHF RESP INSUFFICIENCY, PNEUMONIA, CHF RESP INSUFFICIENCY, PNEUMONIA, CHF EORDER Reason for Visit Renal failure CHF (congestive heart failure) Acute on chronic renal insufficiency Acute on chronic systolic heart failure Acute respiratory insufficiency Acute systolic heart failure Hemoptysis Shortness of breath Chief Complaint E ORDER RESP INSUFFICIENCY, PNEUMONIA, CHF RESP INSUFFICIENCY, PNEUMONIA, CHF RESP INSUFFICIENCY, PNEUMONIA, CHF RESP INSUFFICIENCY, PNEUMONIA, CHF EORDER Reason for Visit Acute on chronic yakelin al insufficiency Acute on chronic systolic heart failure Acute respiratory insufficiency Acute systolic heart failure Hemoptysis Shortness of breath Chief Complaint E ORDER RESP INSUFFICIENCY, PNEUMONIA, CHF RESP INSUFFICIENCY, PNEUMONIA, CHF RESP INSUFFICIENCY, PNEUMONIA, CHF RESP INSUFFICIENCY, PNEUMONIA, CHF EORDER MONITOR, METS RENAL CA Reason for Visit Acute on chronic yakelin al insufficiency Acute on chronic systolic heart failure Acute respiratory insufficiency Acute systolic heart failure Hemoptysis Shortness of breath Chief Complaint MONITOR, METS RENAL CA 3MO LABS REVIEW CT [address]MO LAB[address] REVIEW CT EORDER Reason for Visit Metastatic renal maggie l carcinoma to bone Renal cell cancer Chief Complaint Admit Date NICOTINE DEP February 08, 2024 2 :47pm TYPE 2 DM June 05, 2024 1:3 2pm Chief Complaint Admit Date TYPE 2 DM June 05, 2024 1:3 2pm KIDNEY/BONE CANCER June 13, 2024 12:4 4pm Chief Complaint Admit Date TYPE 2 DM June 05, 2024 1:3 2pm KIDNEY/BONE CANCER June 13, 2024 12:4 4pm INT LAB ORDERS June 20, 2024 12: 27pm 6 MO - LABS - REVIEW SCANS June 20, 2 025 1:05pm Reason for Visit Admit Date Metastatic renal cell carcinoma to bone June 20, 2024 1:05pm Renal cell cancer June 20, 2024 1:0 5pm Chief Complaint Admit Date TYPE 2 DM June 05, 2024 1:3 2pm KIDNEY/BONE CANCER June 13, 2024 12:4 4pm INT LAB ORDERS June 20, 2024 12: 27pm 6 MO - LABS - REVIEW SCANS June 20, 2 025 1:05pm 6 M FU August 14, 2024 12:55 pm Reason for Visit Admit Date Metastatic renal cell carcinoma to bone June 20, 2024 1:05pm Renal cell cancer June 20, 2024 1:0 5pm Atrial fibrillation August 14, 2024 12:55 pm Chest pain August 14, 2024 12:55 pm Renal failure August 14, 2024 12:55 pm CHF (congestive heart failure) August 14, 2024 12:55pm Hypertension August 14, 2024 12:55 pm Chief Complaint Admit Date TYPE 2 DM June 05, 2024 1:3 2pm KIDNEY/BONE CANCER June 13, 2024 12:4 4pm INT LAB ORDERS June 20, 2024 12: 27pm 6 MO - LABS - REVIEW SCANS June 20, 2 025 1:05pm 6 M FU August 14, 2024 12:55 pm TYPE 2 DM August 14, 2024 2:52p m Reason for Visit Admit Date Metastatic renal cell carcinoma to bone June 20, 2024 1:05pm Renal cell cancer June 20, 2024 1:0 5pm Chest pain August 14, 2024 12:55 pm Renal failure August 14, 2024 12:55 pm Atrial fibrillation August 14, 2024 12:55 pm CHF (congestive heart failure) August 14, 2024 12:55pm Hypertension August 14, 2024 12:55 pm Chief Complaint Metastatic kidney cancer Additional Source Comments (unrecognized sect ion and content) No Status Records FoundNo Status Records FoundNo Status Records FoundNo Status Records FoundNo Status Records FoundNo Status Records FoundNo Status Records FoundNo Status Records FoundNo Status Records FoundNo Status Records Found INFORMATION SOURCE (unrecogn ized section and content) DATE CREATED AUTHOR 11/22/2019 [facility] DATE CREATED AUTHOR AUTHOR'S ORGANIZ ATION 02/06/2020 [facility] DATE CREATED AUTHOR AUTHOR'S ORGANIZ ATION 12/10/2021 [facility] DATE CREATED AUTHOR AUTHOR'S ORGANIZ ATION 02/05/2022 [facility] DATE CREATED AUTHOR AUTHOR'S ORGANIZ ATION 03/17/2022 [facility] DATE CREATED AUTHOR AUTHOR'S ORGANIZ ATION 04/04/2022 [facility] DATE CREATED AUTHOR AUTHOR'S ORGANIZ ATION 04/25/2022 [facility] DATE CREATED AUTHOR AUTHOR'S ORGANIZ ATION 05/18/2022 [facility] DATE CREATED AUTHOR AUTHOR'S ORGANIZ ATION 07/19/2022 [facility] DATE CREATED AUTHOR AUTHOR'S ORGANIZ ATION [facility] Care Teams (unrecognized sec tion and content) Team Status: Active Member Role Status Dates Dr. Jose Ramon Turner MD Primary Care Provider Activ e Team Status: Inactive Member Role Status Dates Dr. Jose Ramon Turner MD Primary Care Provider, Refe rring Provider Active Dr. Dangelo Botello MD Attending Provider Active Team Status: Active Member Role Status Dates Dr. Jose Ramon Turner MD Primary Care Provider Activ e Dr. Dangelo Botello MD Attending Provider, Referring Pro vider Active Team Status: Inactive Member Role Status Dates Dr. Jose Ramon Turner MD Primary Care Provider Activ e Dr. Dangelo Botello MD Attending Provider, Referring Pro vider Active Team Status: Inactive Member Role Status Dates Dr. Jose Ramon Turner MD Primary Care Provider Activ e Dr. Isidra Chiu DO Attending Provider Active Team Status: Inactive Member Role Status Dates Dr. Jose Ramon Turner MD Primary Care Provider, Attending Provider, Referring Provider Active Team Status: Active Member Role Status Dates Dr. Jose Ramon Turner MD Primary Care Provider Activ e Dr. Speedy Bass MD Emergency Provider Active Dr. Marquise Padilla MD Admit Provi toby, Attending Provider, Other Provider Active Team Status: Active Member Role Status Dates Dr. Jose Ramon Turner MD Primary Care Provider Activ e Dr. Speedy Bass MD Emergency Provider Active Dr. Marquise Padilla MD Admit Provider, Other Pro vider Active Dr. Carol Chiu DO Attending Provider, Other Provide r Active Team Status: Inactive Member Role Status Dates Dr. Jose Ramon Turner MD Primary Care Provider, Atte nding Provider Active Team Status: Inactive Member Role Status Dates Dr. Jose Ramon Turner MD Primary Care Provider Activ e Dr. Speedy Bass MD Emergency Provider Active Dr. Marquise Padilla MD Admit Provider, Other Pro vider Active Dr. Carol Chiu DO Attending Provider Active Team Status: Inactive Member Role Status Dates Dr. Jose Ramon Turner MD Primary Care Provider, Refe rring Provider Active Dr. Moises Gaona MD Attending Provider Active Team Status: Active Member Role Status Dates Dr. Jose Ramon Turner MD Primary Care Provider Activ e Dr. Kassy Banda MD Emergency Provider Active Dr. Alicia Dukes MD Admit Provider, Other Provider A ctive Dr. Jesús Che , Attending Provider, Other Provid er Active Team Status: Active Member Role Status Dates Dr. Jose Ramon Turner MD Primary Care Provider Activ e Dr. Livan Hastings DO Emergency Provider Active Dr. Estelita Lu MD Admit Provider, Other Provider Active Dr. Pau Wei MD Other Provider Active Dr. Carol Chiu DO Attending Provider, Other Provide r Active Team Status: Active Member Role Status Dates Dr. Jose Ramon Turner MD Primary Care Provider, Referring Provider, Other Provider Active Dr. Chase Gray MD Attending Provider Active Team Status: Inactive Member Role Status Dates Dr. Jose Ramon Turner MD Primary Care Provider Activ e Dr. Kassy Banda MD Emergency Provider Active Dr. Alicia Dukes MD Admit Provider, Other Provider A ctive Dr. Jesús Che , DO Attending Provider Active Team Status: Inactive Member Role Status Dates Dr. Jose Ramon Turner MD Primary Care Provider Activ e Dr. Livan Hastings , Emergency Provider Active Dr. Estelita Lu MD Admit Provider, Other Provider Active Dr. Pau Wei MD Other Provider Active Dr. Carol Chiu , DO Attending Provider Active Team Status: Active Member Role Status Dates Dr. Jose Ramon Turner MD Primary Care Provider Activ e Dr. Moises Gaona MD Attending Provider Active Team Status: Active Member Role Status Dates Dr. Jose Ramon Turner MD Primary Care Provider Activ e Dr. Kei Dunn , Emergency Provider Active Dr. Dangelo Camacho MD Admit Provider, Other Provide r Active Dr. Carol Chiu , DO Attending Provider, Other Provide r Active Team Status: Active Member Role Status Dates Dr. Jose Ramon Turner MD Primary Care Provider Activ e Dr. Kei Dunn , DO Emergency Provider Active Dr. Dangelo Camacho MD Admit Provider, Other Provide r Active Dr. Carol Chiu , DO Other Provider Active Dr. Hoa Ma MD Attending Provider Activ e Team Status: Inactive Member Role Status Dates Dr. Jose Ramon Turner MD Primary Care Provider Activ e Dr. Petra Carvajal , Attending Provider, Emergency Pro vider Active Team Status: Inactive Member Role Status Dates Dr. Jose Ramon Turner MD Primary Care Provider Activ e Dr. Speedy Bass MD Attending Provider, Emergency Provider Active Team Status: Active Member Role Status Dates Dr. Jose Ramon Turner MD Primary Care Provider, Attending Provider, Referring Provider Active Team Status: Inactive Member Role Status Dates Dr. Jose Ramon Turner MD Primary Care Provider Activ e Dr. Kei Dunn , Emergency Provider Active Dr. Dangelo Camacho MD Admit Provider, Other Provide r Active Dr. Carol Chiu , DO Attending Provider Active Team Status: Active Member Role Status Dates Family Physician Unavailable primary care physician Ac tive Start: June 19, 2021 Siri Harris MD EMERGENCY Active Start: Ap 2021 Family Physician Unavailable FAMILY Active Start: June 19, 2021 MIYA YANEZ Next of Kin Active Start: June 19, 2021 [place] Reporter Relationship Specialty [place] [address] [place] [address] PCP - General Internal Medicine 10/10/18 [place] Reporter Relationship Specialty [place] [address] [place] [address] PCP - General Internal Medicine 10/10/18 [employer] Reporter Relationship Specialty Start [place] [address] [place] [address] PCP - General Internal Medicine 10/10/18 [place] Reporter Relationship Specialty Start [place] [address] [place] [address] PCP - General Internal Medicine 10/10/18 [place] Reporter Relationship Specialty Start [place] [address] [place] [address] PCP - General Internal Medicine 10/10/18 [employer] Reporter Relationship Specialty Start [place] [address] [place] [address] PCP - General Internal Medicine 10/10/18 [place] Reporter Relationship Specialty Start [place] [address] [place] [address] PCP - General Internal Medicine 10/10/18 [place] Reporter Relationship Specialty Start [place] [address] [place] [address] PCP - General Internal Medicine 10/10/18 [place] Reporter Relationship Specialty [place] [address] [place] [address] PCP - General Internal Medicine 10/10/18 [place] Reporter Relationship Specialty Start [place] [address] [place] [address] PCP - General Internal Medicine 10/10/18 [place] Reporter Relationship Specialty Start [place] [address] [place] [address] PCP - General Internal Medicine 10/10/18 [place] Reporter Relationship Specialty Start [place] [address] [place] [address] PCP - General Internal Medicine 10/10/18 [place] Reporter Relationship Specialty Start [place] [address] [place] [address] PCP - General Internal Medicine 10/10/18 [place] Reporter Relationship Specialty Start [place] [address] [place] [address] PCP - General Internal Medicine 10/10/18 [place] Reporter Relationship Specialty Start Date End Date Daksha Turner MD [address] [facility], [place] [address] PCP - General Family Practice 07/18/21 [place] Reporter Relationship Specialty Start Date End Date Daksha Turner MD [address] [place] [address], [place] [address] PCP - General Family Practice 07/18/21 [place] Reporter Relationship Specialty Start Date End Date Daksha Turner MD [address] [place] [address] [place] [address] PCP - General Family Practice 07/18/21 [place] Reporter Relationship Specialty Start Date End Date Daksha Turner MD [address] [place] [address] PCP - General Family Practice 07/18/21 [place] Reporter Relationship Specialty Start Date End Date Daksha Turner MD [address] [place] [address] PCP - General Family Practice 07/18/21 [place] Reporter Relationship Specialty Start Date End Date Daksha Turner MD [address] [place] [address] PCP - General Family Practice 07/18/21 Acreage Reporter Relationship Specialty Start Date End Date Daksha Turner MD [address] [place] [address] PCP - General Family Practice 07/18/21 Acreage Reporter Relationship Specialty Start Date End Date Daksha Turner MD [address] [place] [address] PCP - General Family Practice 07/18/21 Acreage Reporter Relationship Specialty Start Date End Date Daksha Turner MD [address] [place] [address] PCP - General Family Practice 07/18/21 Acreage Reporter Relationship Specialty Start Date End Date Daksha Turner MD [address] [place] [address] PCP - General Family Practice 07/18/21 Acreage Reporter Relationship Specialty Start Date End Date Daksha Turner MD [address] [place] [address] PCP - General Family Practice 07/18/21 Acreage Reporter Relationship Specialty Start Date End Date Daksha Turner MD [address] [place] [address] PCP - General Family Practice 07/18/21 Acreage Reporter Relationship Specialty Start Date End Date Daksha Turner MD [address] [place] [address] PCP - General Family Practice 07/18/21 Acreage Reporter Relationship Specialty Start Date End Date Daksha Turner MD [address] [place] [address] PCP - General Family Practice 07/18/21 Acreage Reporter Relationship Specialty Start Date End Date Daksha Turner MD [address] [place] [address] PCP - General Family Practice 07/18/21 Acreage Reporter Relationship Specialty Start Date End Date Daksha Turner MD [address] [place] [address] PCP - General Family Practice 07/18/21 Acreage Reporter Relationship Specialty Start Date End Date Daksha Turner MD [address] [place] [address] PCP - General Family Practice 07/18/21 Acreage Reporter Relationship Specialty Start Date End Date Daksha Turner MD [address] [place] [address] PCP - General Family Practice 07/18/21 Acreage Reporter Relationship Specialty Start Date End Date Daksha Turner MD [address] [place] [address] PCP - General Family Practice 07/18/21 Acreage Reporter Relationship Specialty Start Date End Date Daksha Turner MD [address] [place] [address] PCP - General Family Practice 07/18/21 Acreage Reporter Relationship Specialty Start Date End Date Daksha Turner MD [address] [place] [address] PCP - General Family Practice 07/18/21 Acreage Reporter Relationship Specialty Start Date End Date Daksha Turner MD [address] [place] [address] PCP - General Family Practice 07/18/21 Acreage Reporter Relationship Specialty Start Date End Date Daksha Turner MD [address] [place] [address] PCP - General Family Practice 07/18/21 Acreage Reporter Relationship Specialty Start Date End Date Daksha Turner MD [address] [place] [address] PCP - General Family Practice 07/18/21 Sumi, Sary, [employer] Process Line Operator Oncology 08/11/21 Acreage Reporter Relationship Specialty Start Date End Date Daksha Turner MD [address] [place] [address] PCP - General Family Practice 07/18/21 Sary Jonas, [employer] Process Line Operator Oncology 08/11/21 Acreage Reporter Relationship Specialty Start Date End Date Daksha Turner MD [address] [place] [address] PCP - General Family Practice 07/18/21 Golias, Sary, [employer] Process Line Operator Oncology 08/11/21 Acreage Reporter Relationship Specialty Start Date End Date Daksha Turner MD [address] [place] [address] PCP - General Family Practice 07/18/21 Sumi, Sary, [facility] Process Line Operator Oncology 08/11/21 Acreage Reporter Relationship Specialty Start Date End Date Daksha Turner MD [address] [place], [place] 803381 PCP - General Family Practice 07/18/21 Golias, Sary, [facility] Process Line Operator Oncology 08/11/21 Acreage Reporter Relationship Specialty Start Date End Date Daksha Turner MD [address] [place], [place] [id number] PCP - General Family Practice 07/18/21 Sumi, Sary, [facility] Process Line Operator Oncology 08/11/21 Lalo Acevedo MD [address] [place], [place] [id number] Primary Staff Physician Cardiology 08/19/21 Acreage Reporter Relationship Specialty Start Date End Date Daksha Turner MD [address] [place], [place] [id number] PCP - General Family Practice 07/18/21 Sumi, Sary, [facility] Process Line Operator Oncology 08/11/21 Lalo Acevedo MD [address] [place], [place] [id number] Primary Staff Physician Cardiology 08/19/21 Acreage Reporter Relationship Specialty Start Date End Date Daksha Turner MD [address] [place], [place] [id number] PCP - General Family Practice 07/18/21 Sumi, Sary, [facility] Process Line Operator Oncology 08/11/21 Lalo Acevedo MD [address] [place], [place] [phone] Primary Staff Physician Cardiology 08/19/21 Acreage Reporter Relationship Specialty Start Date End Date Daksha Turner MD [address] [place] [address] PCP - General Family Practice 07/18/21 Sary Jonas, [facility] Process Line Operator Oncology 08/11/21 Lalo Acevedo MD [address] [place], [place] [id number] Primary Staff Physician Cardiology 08/19/21 Acreage Reporter Relationship Specialty Start Date End Date Daksha Turner MD [address] [place] [address] PCP - General Family Practice 07/18/21 Sary Jonas, [facility] Process Line Operator Oncology 08/11/21 Lalo Acevedo MD [address] [place] [address] Primary Staff Physician Cardiology 08/19/21 Acreage Reporter Relationship Specialty Start Date End Date Daksha Turner MD [address] [place] [address] PCP - General Family Practice 07/18/21 Sary Jonas, [facility] Process Line Operator Oncology 08/11/21 Lalo Acevedo MD [address] [place] [address] Primary Staff Physician Cardiology 08/19/21 Acreage Reporter Relationship Specialty Start Date End Date Daksha Turner MD [address] [place] [address] PCP - General Family Practice 07/18/21 Sary Jonas, [facility] Process Line Operator Oncology 08/11/21 Lalo Acevedo MD [address] [place], [place] [phone] Primary Staff Physician Cardiology 08/19/21 Acreage Reporter Relationship Specialty Start Date End Date Daksha Turner MD [address] [place] [address] PCP - General Family Practice 07/18/21 Sary Jonas, [facility] Process Line Operator Oncology 08/11/21 Lalo Acevedo MD [address] [place] [address] Primary Staff Physician Cardiology 08/19/21 Acreage Reporter Relationship Specialty Start Date End Date Daksha Turner MD [address] [place] [address] PCP - General Family Practice 07/18/21 Sary Jonas, [facility] Process Line Operator Oncology 08/11/21 Lalo Acevedo MD [address] [place] [address] Primary Staff Physician Cardiology 08/19/21 Acreage Reporter Relationship Specialty Start Date End Date Daksha Turner MD [address] [place], [place] 923391 PCP - General Family Practice 07/18/21 Sary Jonas, [facility] Process Line Operator Oncology 08/11/21 Lalo Acevedo MD [address] [place] [address] Primary Staff Physician Cardiology 08/19/21 Acreage Reporter Relationship Specialty Start Date End Date Daksha Turner MD [address] [place], [place] 078031 PCP - General Family Practice 07/18/21 Sary Jonas, [facility] Process Line Operator Oncology 08/11/21 Lalo Acevedo MD [address] [place] [address] Primary Staff Physician Cardiology 08/19/21 Rahul Knight, RN Research Nurse 09/03/21 Acreage Reporter Relationship Specialty Start Date End Date Daksha Turner MD [address] [facility] [place] [place], [place] 526501 PCP - General Family Practice 07/18/21 Sary Jonas, [facility] Process Line Operator Oncology 08/11/21 Lalo Acevedo MD [address] [place] [address] Primary Staff Physician Cardiology 08/19/21 Rahul Knight, RN Research Nurse 09/03/21 Acreage Reporter Relationship Specialty Start Date End Date Daksha Turner MD [address] [place], [place] [id number] PCP - General Family Practice 07/18/21 Sary Jonas, [facility] Process Line Operator Oncology 08/11/21 Lalo Acevedo MD [address] [place] [address] Primary Staff Physician Cardiology 08/19/21 Rahul Knight, RN Research Nurse 09/03/21 Acreage Reporter Relationship Specialty Start Date End Date Daksha Turner MD [address] [facility] [address] PCP - General Family Practice 07/18/21 Sary Jonas, [facility] Process Line Operator Oncology 08/11/21 Lalo Acevedo MD [address] [place] [address] Primary Staff Physician Cardiology 08/19/21 Rahul Knight, RN Research Nurse 09/03/21 Acreage Reporter Relationship Specialty Start Date End Date Daksha Turner MD [address] [place] [address] PCP - General Family Practice 07/18/21 Sary Jonas, [facility] Process Line Operator Oncology 08/11/21 Lalo Acevedo MD [address] [place] [address] Primary Staff Physician Cardiology 08/19/21 Rahul Knight, RN Research Nurse 09/03/21 Acreage Reporter Relationship Specialty Start Date End Date Daksha Turner MD [address] [place], [place] [id number] PCP - General Family Practice 07/18/21 [facility] Process Line Operator Oncology 08/11/21 Lalo Acevedo MD [address] [place] [address] Primary Staff Physician Cardiology 08/19/21 Rahul Knight, RN Research Nurse 09/03/21 Safia Carr, LTAC, located within [facility] [address] [place] [address] Transitional Care Pharmacist Pharmacy 09/29/21 10/30/21 Acreage Reporter Relationship Specialty Start Date End Date Daksha Turner MD [address] [place], [place] [phone] PCP - General Family Practice 07/18/21 [facility] Process Line Operator Oncology 08/11/21 Lalo Acevedo MD [address] [place] [address] Primary Staff Physician Cardiology 08/19/21 Rahul Knight, RN Research Nurse 09/03/21 Safia Carr, LT[facility], located [facility] [address] [place] [address] Transitional Care Pharmacist Pharmacy 09/29/21 10/30/21 Acreage Reporter Relationship Specialty Start Date End Date Daksha Turner MD [address] [place], [place] [id number] PCP - General Family Practice 07/18/21 Sary Jonas, [facility] Process Line Operator Oncology 08/11/21 Lalo Acevedo MD [address] [place] [address] Primary Staff Physician Cardiology 08/19/21 Rahul Knight, RN Research Nurse 09/03/21 Acreage Reporter Relationship Specialty Start Date End Date Daksha Turner MD [address] [place] [address] [id number] PCP - General Family Practice 07/18/21 Sary Jonas, [facility] Process Line Operator Oncology 08/11/21 Lalo Aceveod MD [address] [place], [place] 2134195 Primary Staff Physician Cardiology 08/19/21 Rahul Knight, RN Research Nurse 09/03/21 Safia Carr, LT[facility], located [facility] [address] [place] [address] Transitional Care Pharmacist Pharmacy 09/29/21 10/30/21 Acreage Reporter Relationship Specialty Start Date End Date Daksha Turner MD [address] [place] [address] PCP - General Family Practice 07/18/21 Sary Jonas, [facility] Process Line Operator Oncology 08/11/21 Lalo Acevedo MD [address] [place] [address] Primary Staff Physician Cardiology 08/19/21 Rahul Knight, RN Research Nurse 09/03/21 Safia Carr, LT[facility], located [facility] [address] [place] [address] Transitional Care Pharmacist Pharmacy 09/29/21 10/30/21 Acreage Reporter Relationship Specialty Start Date End Date Daksha Turner MD [address] [facility] [place] [place] [address] PCP - General Family Practice 07/18/21 Sary Jonas, [facility] Process Line Operator Oncology 08/11/21 Lalo Acevedo MD [address] [place], [place] [id number] Primary Staff Physician Cardiology 08/19/21 Rahul Knight, RN Research Nurse 09/03/21 Safia Carr, LT[facility], located [facility] [address] [place], [place] [id number] Transitional Care Pharmacist Pharmacy 09/29/21 10/30/21 Acreage Reporter Relationship Specialty Start Date End Date Daksha Turner MD [address] [facility] [place] [place] [phone] PCP - General Family Practice 07/18/21 Sary Jonas, [facility] Process Line Operator Oncology 08/11/21 Lalo Acevedo MD [address] [place], [place] [id number] Primary Staff Physician Cardiology 08/19/21 Rahul Knight, RN Research Nurse 09/03/21 Safia Carr, LT[facility], located [facility] [address] [place] [address] Transitional Care Pharmacist Pharmacy 09/29/21 10/30/21 Acreage Reporter Relationship Specialty Start Date End Date Daksha Turner MD [address] [facility] [place] [place] [id number] PCP - General Family Practice 07/18/21 Sary Jonas, [facility] Process Line Operator Oncology 08/11/21 Lalo Acevedo MD [address] [place] [address] Primary Staff Physician Cardiology 08/19/21 Rahul Knight, RN Research Nurse 09/03/21 Safia Carr, LT[facility], located [facility] [address] [place], [place] [id number] Transitional Care Pharmacist Pharmacy 09/29/21 10/30/21 Acreage Reporter Relationship Specialty Start Date End Date Daksha Turner MD [address] [place], [place] [id number] PCP - General Family Practice 07/18/21 Sary Jonas, [employer] Process Line Operator Oncology 08/11/21 Lalo Acevedo MD [address] [place] [address] Primary Staff Physician Cardiology 08/19/21 Rahul Knight, RN Research Nurse 09/03/21 Acreage Reporter Relationship Specialty Start Date End Date Daksha Turner MD [address] [place], [place] [id number] PCP - General Family Practice 07/18/21 Sary Jonas, [facility] Process Line Operator Oncology 08/11/21 Lalo Acevedo MD [address] [place] [address] Primary Staff Physician Cardiology 08/19/21 Rahul Knight, RN Research Nurse 09/03/21 Safia Carr, LTAC, located [facility] [address] [place] [address] Transitional Care Pharmacist Pharmacy 09/29/21 10/30/21 Acreage Reporter Relationship Specialty Start Date End Date Daksha Turner MD [address] [place], [place] [id number] PCP - General Family Practice 07/18/21 Sary Jonas, [facility] Process Line Operator Oncology 08/11/21 Lalo Acevedo MD [address] [place] [address] Primary Staff Physician Cardiology 08/19/21 Rahul Knight, RN Research Nurse 09/03/21 Acreage Reporter Relationship Specialty Start Date End Date Daksha Turner MD [address] [place], [place] [id number] PCP - General Family Practice 07/18/21 Sary Jonas, [facility] Process Line Operator Oncology 08/11/21 Lalo Acevedo MD [address] [place] [address] Primary Staff Physician Cardiology 08/19/21 Rahul Knight, RN Research Nurse 09/03/21 [facility] [address] [place] [address] Transitional Care Pharmacist Pharmacy 09/29/21 10/30/21 Acreage Reporter Relationship Specialty Start Date End Date Daksha Turner MD [address] [place], [place] [id number] PCP - General Family Practice 07/18/21 Sary Jonas, [facility] Process Line Operator Oncology 08/11/21 Lalo Acevedo MD [address] [place], [place] [phone] Primary Staff Physician Cardiology 08/19/21 Rahul Knight, RN Research Nurse 09/03/21 Acreage Reporter Relationship Specialty Start Date End Date Daksha Turner MD [address] [place], [place] [id number] PCP - General Family Practice 07/18/21 Sary Jonas, [facility] Process Line Operator Oncology 08/11/21 Lalo Acevedo MD [address] [place] [address] Primary Staff Physician Cardiology 08/19/21 Rahul Knight, RN Research Nurse 09/03/21 Acreage Reporter Relationship Specialty Start Date End Date Daksha Turner MD [address] [place], [place] 162021 PCP - General Family Practice 07/18/21 Sary Jonas, [facility] Process Line Operator Oncology 08/11/21 Lalo Acevedo MD [address] [place] [address] Primary Staff Physician Cardiology 08/19/21 Rahul Knight, RN Research Nurse 09/03/21 Acreage Reporter Relationship Specialty Start Date End Date Daksha Turner MD [address] [place], [place] [id number] PCP - General Family Medicine 07/18/21 Sary Jonas, [facility] Process Line Operator Oncology 08/11/21 Lalo Acevedo MD [address] [place] [address] Primary Staff Physician Cardiology 08/19/21 Rahul Knight, RN Research Nurse 09/03/21 Acreage Reporter Relationship Specialty Start Date End Date Daksha Turner MD [address] [place] [address] PCP - General Family Medicine 07/18/21 Sary Jonas, [facility] Process Line Operator Oncology 08/11/21 Lalo Acevedo MD [address] [place] [address] Primary Staff Physician Cardiology 08/19/21 Rahul Knight, RN Research Nurse 09/03/21 Acreage Reporter Relationship Specialty Start Date End Date Daksha Turner MD [address] [place], [place] 053001 PCP - General Family Medicine 07/18/21 Sary Jonas [facility] Process Line Operator Oncology 08/11/21 Lalo Acevedo MD [address] [place] [address] Primary Staff Physician Cardiology 08/19/21 Rahul Knight, RN Research Nurse 09/03/21 Haylee Wilburn MD [address] [place], [place] [id number] Oncology 12/08/21 [place] [address] [place] [phone] Radiation Oncology 12/08/21 Acreage Reporter Relationship Specialty Start Date End Date Daksha Turner MD [address] [facility] [place] [place] [phone] PCP - General Family Medicine 07/18/21 Sary Jonas [facility] Process Line Operator Oncology 08/11/21 Lalo Acevedo MD [address] [place] [address] Primary Staff Physician Cardiology 08/19/21 Rahul Knight, RN Research Nurse 09/03/21 [place] [address] [place] [address] [id number] Oncology 12/08/21 [place] [address] [place] [address] [place] [address] Radiation Oncology 12/08/21 Acreage Reporter Relationship Specialty Start Date End Date Daksha Turner MD [address] [facility] [place], [place] [phone] PCP - General Family Medicine 07/18/21 Sary Jonas [facility] Process Line Operator Oncology 08/11/21 Lalo Acevedo MD [address] [place] [address] Primary Staff Physician Cardiology 08/19/21 Rahul Knight, RN Research Nurse 09/03/21 Haylee Wilburn MD [address] [place] [address] Oncology 12/08/21 Alfredo Xavier MD [address] [place] [phone] Radiation Oncology 12/08/21 Acreage Reporter Relationship Specialty Start Date End Date Daksha Turner MD [address] [place], [place] [id number] PCP - General Family Medicine 07/18/21 Sary Jonas [facility] Process Line Operator Oncology 08/11/21 Lalo Acevedo MD [address] [place] [address] Primary Staff Physician Cardiology 08/19/21 Rahul Knight, RN Research Nurse 09/03/21 Haylee Wilubrn MD [address] [facility] [place] [address] Oncology 12/08/21 Alfredo Xavier MD [address] [place] [address] Radiation Oncology 12/08/21 Acreage Reporter Relationship Specialty Start Date End Date Daksha Turner MD [address] [place] [address] PCP - General Family Medicine 07/18/21 Sary Jonas [facility] Process Line Operator Oncology 08/11/21 Lalo Acevedo MD [address] [place] [address] Primary Staff Physician Cardiology 08/19/21 Rahul Knight, RN Research Nurse 09/03/21 [place] [address] [place] [address] [phone] Oncology 12/08/21 [place] [address] [place] [phone] Radiation Oncology 12/08/21 Acreage Reporter Relationship Specialty Start Date End Date Daksha Turner MD [address] [facility] [place] [place] [phone] PCP - General Family Medicine 07/18/21 Sary Jonas, [facility] Process Line Operator Oncology 08/11/21 Lalo Acevedo MD [address] [place] [address] Primary Staff Physician Cardiology 08/19/21 Rahul Knight, JOHN Research Nurse 09/03/21 [place] [address] [place] [address] Oncology 12/08/21 [place] [address] [place] [phone] Radiation Oncology 12/08/21 Acreage Reporter Relationship Specialty Start Date End Date Daksha Turner MD [address] [facility] [place] [place] [place] [phone] PCP - General Family Medicine 07/18/21 Sary Jonas, [facility] Process Line Operator Oncology 08/11/21 Lalo Acevedo MD [address] [place] [address] Primary Staff Physician Cardiology 08/19/21 Rahul Knight, RN Research Nurse 09/03/21 Haylee Wilburn MD [address] [place], [place] [id number] Oncology 12/08/21 [place] [address] [place] [address] [place] [phone] Radiation Oncology 12/08/21 Acreage Reporter Relationship Specialty Start Date End Date Daksha Turner MD [address] [place], [place] 885051 PCP - General Family Medicine 07/18/21 Sary Jonas, [facility] Process Line Operator Oncology 08/11/21 Lalo Acevedo MD [address] [place] [address] Primary Staff Physician Cardiology 08/19/21 Rahul Knight, RN Research Nurse 09/03/21 Haylee Wilburn MD [address] [place], [place] [id number] Oncology 12/08/21 [place] [address] [place] [phone] Radiation Oncology 12/08/21 Acreage Reporter Relationship Specialty Start Date End Date Daksha Turner MD [address] [place] [address] PCP - General Family Medicine 07/18/21 Sary Jonas [facility] Process Line Operator Oncology 08/11/21 Lalo Acevedo MD [address] [place], [place] [phone] Primary Staff Physician Cardiology 08/19/21 Rahul Knight, RN Research Nurse 09/03/21 Haylee Wilburn MD [address] [place], [place] [id number] Oncology 12/08/21 Alfredo Xavier MD [address] [facility] [place] [phone] Radiation Oncology 12/08/21 Acreage Reporter Relationship Specialty Start Date End Date Daksha Turner MD [address] [place], [place] 762051 PCP - General Family Medicine 07/18/21 Sary Jonas, [facility] Process Line Operator Oncology 08/11/21 Lalo Acevedo MD [address] [place] [address] Primary Staff Physician Cardiology 08/19/21 Rahul Knight, RN Research Nurse 09/03/21 Haylee Wilburn MD [address] [facility] [place] [address] Oncology 12/08/21 Alfredo Xavier MD [address] [facility] [place] [phone] Radiation Oncology 12/08/21 Sayra Tello MD [address] [place] [address] Cardiology 02/12/22 Acreage Reporter Relationship Specialty Start Date End Date Daksha Turner MD [address] [place], [place] 323211 PCP - General Family Medicine 07/18/21 Sary Jonas, [facility] Process Line Operator Oncology 08/11/21 Lalo Acevedo MD [address] [place] [address] Primary Staff Physician Cardiology 08/19/21 Rahul Knight, RN Research Nurse 09/03/21 Haylee Wilburn MD [address] [place], [place] [id number] Oncology 12/08/21 Alfredo Xavier MD [address] [facility] [place] [phone] Radiation Oncology 12/08/21 Sayra Tello MD [address] [place], [place] [phone] Cardiology 02/12/22 Acreage Reporter Relationship Specialty Start Date End Date Daksha Turner MD [address] [place], [place] [phone] PCP - General Family Medicine 07/18/21 Sary Jonas, [facility] Process Line Operator Oncology 08/11/21 Lalo Acevedo MD [address] [place] [address] Primary Staff Physician Cardiology 08/19/21 Rahul Knight, RN Research Nurse 09/03/21 Haylee Wilburn MD [address] [place], [place] 6102808 Oncology 12/08/21 Alfredo Xavier MD [address] [facility] [place] [address] Radiation Oncology 12/08/21 Sayra Tello MD [address] [place], [place] [phone] Cardiology 02/12/22 Acreage Reporter Relationship Specialty Start Date End Date Daksha Turner MD [address] [place], [place] [id number] PCP - General Family Medicine 07/18/21 Sary Jonas, [facility] Process Line Operator Oncology 08/11/21 Lalo Acevedo MD [address] [place] [address] Primary Staff Physician Cardiology 08/19/21 Rahul Knight, RN Research Nurse 09/03/21 Haylee Wilburn MD [address] [place] [address] Oncology 12/08/21 Alfredo Xavier MD [address] [place] [phone] Radiation Oncology 12/08/21 Sayra Tello MD [address] [place], [place] [phone] Cardiology 02/12/22 Acreage Reporter Relationship Specialty Start Date End Date Daksha Turner MD [address] [place] [address] PCP - General Family Medicine 07/18/21 Sary Jonas [facility] Process Line Operator Oncology 08/11/21 Lalo Acevedo MD [address] [place] [address] Primary Staff Physician Cardiology 08/19/21 Rahul Knight, RN Research Nurse 09/03/21 Haylee Wilburn MD [address] [place] [address] Oncology 12/08/21 Aflredo Xavier MD [address] [place] [phone] Radiation Oncology 12/08/21 Sayra Tello MD [address] [place] [address] Cardiology 02/12/22 Acreage Reporter Relationship Specialty Start Date End Date Daksha Turner MD [address] [place], [place] [id number] PCP - General Family Medicine 07/18/21 Sary Jonas, [facility] Process Line Operator Oncology 08/11/21 Lalo Acevedo MD [address] [place] [address] Primary Staff Physician Cardiology 08/19/21 Rahul Knight, RN Research Nurse 09/03/21 Haylee Wiblurn MD [address] [place] [address] Oncology 12/08/21 Alfredo Xavier MD [address] [facility] [place] [phone] Radiation Oncology 12/08/21 Sayra Tello MD [address] [facility] [address] [place], [place] [id number] Cardiology 02/12/22 Acreage Reporter Relationship Specialty Start Date End Date Daksha Turner MD [address] [place] [address] PCP - General Family Medicine 07/18/21 Sary Jonas, [facility] Process Line Operator Oncology 08/11/21 Lalo Acevedo MD [address] [place] [address] Primary Staff Physician Cardiology 08/19/21 Rahul Knight, RN Research Nurse 09/03/21 Haylee Wilburn MD [address] [place] [address] Oncology 12/08/21 Alfredo Xavier MD [address] [facility] [place] [place] [phone] Radiation Oncology 12/08/21 Sayra Tello MD [address] [facility] [place] [address] Cardiology 02/12/22 Acreage Reporter Relationship Specialty Start Date End Date Daksha Turner MD [address] [place], [place] [id number] PCP - General Family Medicine 07/18/21 Sary Jonas, [facility] Process Line Operator Oncology 08/11/21 Lalo Acevedo MD [address] [place] [address] Primary Staff Physician Cardiology 08/19/21 Rahul Knight, RN Research Nurse 09/03/21 Haylee Wilburn MD [address] [place] [address] Oncology 12/08/21 Alfredo Xavier MD [address] [facility] [place] [id number] Radiation Oncology 12/08/21 Sayra Tello MD [address] [place] [address] Cardiology 02/12/22 Acreage Reporter Relationship Specialty Start Date End Date Daksha Turner MD [address] [place] [address] PCP - General Family Medicine 07/18/21 Sary Jonas, [facility] Process Line Operator Oncology 08/11/21 Lalo Acevedo MD [address] [place], [place] [id number] Primary Staff Physician Cardiology 08/19/21 Rahul Knight, RN Research Nurse 09/03/21 Haylee Wilburn MD [address] [place], [place] [id number] [phone] Oncology 12/08/21 Alfredo Xavier MD [address] [facility] [place] [place] [address] Radiation Oncology 12/08/21 Sayra Tello MD [address] [facility] [place] [address] Cardiology 02/12/22 Acreage Reporter Relationship Specialty Start Date End Date Daksha Turner MD [address] [facility] [place] [place] [place] [id number] PCP - General Family Medicine 07/18/21 Sary Jonas, [facility] Process Line Operator Oncology 08/11/21 Lalo Acevedo MD [address] [place] [address] Primary Staff Physician Cardiology 08/19/21 Rahul Knight, RN Research Nurse 09/03/21 Haylee Wilburn MD [address] [place], [place] [id number] [phone] Oncology 12/08/21 Alfredo Xavier MD [address] [facility] [place] [address] Radiation Oncology 12/08/21 Sayra Tello MD [address] [place] [address] Cardiology 02/12/22 Acreage Reporter Relationship Specialty Start Date End Date Daksha Turner MD [address] [facility] [place], [place] [id number] PCP - General Family Medicine 07/18/21 Sary Jonas, [facility] Process Line Operator Oncology 08/11/21 Lalo Acevedo MD [address] [place] [address] Primary Staff Physician Cardiology 08/19/21 Rahul Knight, RN Research Nurse 09/03/21 Haylee Wilburn MD [address] [place] [address] Oncology 12/08/21 Alfredo Xavier MD [address] [facility] [place] [address] Radiation Oncology 12/08/21 Sayra Tello MD [address] [place], [place] [id number] Cardiology 02/12/22 Acreage Reporter Relationship Specialty Start Date End Date Daksha Turner MD [address] [facility] [place] [address] PCP - General Family Medicine 07/18/21 Sary Jonas [facility] Process Line Operator Oncology 08/11/21 Lalo Acevedo MD [address] [place] [address] Primary Staff Physician Cardiology 08/19/21 Rahul Knight, RN Research Nurse 09/03/21 Haylee Wilburn MD [address] [place] [address] Oncology 12/08/21 Alfredo Xavier MD [address] [facility] [place] [address] Radiation Oncology 12/08/21 Sayra Tello MD [address] [place] [address] Cardiology 02/12/22 Acreage Reporter Relationship Specialty Start Date End Date Daksha Turner MD [address] [place] [address] PCP - General Family Medicine 07/18/21 Sary Jonas LSW Process Line Operator Oncology 08/11/21 Lalo Acevedo MD [address] [place] [address] Primary Staff Physician Cardiology 08/19/21 Rahul Knight, RN Research Nurse 09/03/21 Haylee Wilburn MD [address] [place] [address] Oncology 12/08/21 Alfredo Xavier MD [address] [facility] [place] [phone] Radiation Oncology 12/08/21 Sayra Tello MD [address] [facility] [place] [address] Cardiology 02/12/22 Team Status: Active Member Role Status Dates Dr. Jose Ramon Turner MD Primary Care Provider Activ e Dr. Kei Dunn , Emergency Provider Active Dr. Dangelo Camacho MD Admit Provider, Attending Pro vider Active Team Status: Active Member Role Status Dates Dr. Jose Ramon Turner MD Primary Care Provider Activ e Dr. Moises Gaona MD Attending Provider, Referring Pro vider Active Team Status: Active Member Role Status Dates Dr. Jose Ramon Turner MD Primary Care Provider Activ e Dr. Kassy Banda MD Emergency Provider Active Dr. Alicia Dukes MD Admit Provider, Attending Provid er Active Team Status: Active Member Role Status Dates Dr. Jose Ramon Turner MD Primary Care Provider Activ e Dr. Livan Hastings DO Emergency Provider Active Dr. Estelita Lu MD Admit Provider, Attending Prov ider Active Team Status: Inactive Member Role Status Dates Dr. Jose Ramon Turner MD Primary Care Provider, Refe rring Provider Active Primo Alves PA, PA Attending Provider Active Team Status: Inactive Member Role Status Dates Dr. Jose Ramon Turner MD Primary Care Provider Activ e Dr. Isidra Chiu DO Attending Provider, Referring Palmer burton Active [place]creage Reporter Relationship Specialty Start Date End Date Daksha Turner MD [address] [place] [address] PCP - General Family Medicine 07/18/21 Sary Jonas [facility] Process Line Operator Oncology 08/11/21 Lalo Acevedo MD [address] [place] [address] Primary Staff Physician Cardiology 08/19/21 Rahul Knight, RN Research Nurse 09/03/21 Haylee Wilburn MD [address] [place], [place] [id number] Oncology 12/08/21 Alfredo Xavier MD [address] [place] [phone] Radiation Oncology 12/08/21 Acreage Reporter Relationship Specialty Start Date End Date Daksha Turner MD [address] [place] [address] PCP - General Family Medicine 07/18/21 Sary Jonas, [facility] Process Line Operator Oncology 08/11/21 Lalo Acevedo MD [address] [place] [address] Primary Staff Physician Cardiology 08/19/21 Rahul Knight, RN Research Nurse 09/03/21 Haylee Wilburn MD [address] [place], [place] [phone] Oncology 12/08/21 Alfredo Xavier MD [address] [place] [address] Radiation Oncology 12/08/21 Sayra Tello MD [address], [address] [place] [address] Cardiology 02/12/22 Team Status: Active Member Role Status Dates Dr. Daksha Turner MD Primary Care Provider Acti ve Team Status: Inactive Member Role Status Dates Dr. Daksha Turner MD Primary Care Provider Acti ve Start: February 08, 2024 End: February 08, 2024 Dr. Daksha Turner MD Attending Provider Active Start: February 08, 2024 End: February 08, 2024 Dr. Daksha Turner MD Referring Provider Active Start: February 08, 2024 End: February 08, 2024 Team Status: Inactive Member Role Status Dates Dr. Daksha Turner MD Primary Care Provider Acti ve Start: March 22, 2024 End: March 22, 2024 Dr. Isidra Chiu DO Attending Provider Active Start: March 22, 2024 End: March 22, 2024 Dr. Isidra Chiu DO Referring Provider Active Start: March 22, 2024 End: March 22, 2024 Team Status: Inactive Member Role Status Dates Dr. Daksha Turner MD Primary Care Provider Acti ve Start: June 05, 2024 End: June 05, 2024 Dr. Daksha Turner MD Attending Provider Active Start: June 05, 2024 End: June 05, 2024 Dr. Daksha Turner MD Referring Provider Active Start: June 05, 2024 End: June 05, 2024 Team Status: Inactive Member Role Status Dates Dr. Daksha Turner MD Primary Care Provider Acti ve Start: June 13, 2024 End: June 13, 2024 Dr. Dangelo Botello MD Attending Provider Active S tart: June 13, 2024 End: June 13, 2024 Dr. Dangelo Botello MD Referring Provider Active S tart: June 13, 2024 End: June 13, 2024 Team Status: Inactive Member Role Status Dates Dr. Daksha Turner MD Primary Care Provider Acti ve Start: June 20, 2024 End: June 20, 2024 Dr. Dangelo Botello MD Attending Provider Active S tart: June 20, 2024 End: June 20, 2024 Dr. Dangelo Botello MD Referring Provider Active S tart: June 20, 2024 End: June 20, 2024 Team Status: Inactive Member Role Status Dates Dr. Daksha Turner MD Primary Care Provider Acti ve Start: June 20, 2024 End: June 20, 2024 Dr. Daksha Turner MD Referring Provider Active Start: June 20, 2024 End: June 20, 2024 Dr. Dangelo Botello MD Attending Provider Active S tart: June 20, 2024 End: June 20, 2024 Team Status: Inactive Member Role Status Dates Dr. Daksha Turner MD Primary Care Provider Acti ve Start: August 14, 2024 End: August 14, 2024 Dr. Daksha Turner MD Referring Provider Active Start: August 14, 2024 End: August 14, 2024 Gini Couch SLATE HANDLER, SLATE HANDLER-C Attending Provider Active Start: August 14, 2024 End: August 14, 2024 Team Status: Inactive Member Role Status Dates Dr. Daksha Turner MD Primary Care Provider Acti ve Start: August 14, 2024 End: August 14, 2024 Gini Couch SLATE HANDLER, SLATE HANDLER-C Attending Provider Active Start: August 14, 2024 End: August 14, 2024 Gini Couch SLATE HANDLER, SLATE HANDLER-C Referring Provider Active Start: August 14, 2024 End: August 14, 2024 Team Status: Active Member Role Status Dates Dr. Daksha Turner MD Primary Care Provider Acti ve Start: August 14, 2024 Dr. Daksha Turner MD Attending Provider Active Start: August 14, 2024 Dr. Daksha Turner MD Referring Provider Active Start: August 14, 2024 Team Status: Active Member Role/Relationship Status Dates Dr. Daksha Turner MD Primary Care Provider Acti ve Team Status: Inactive Member Role/Relationship Status Dates Dr. Daksha Turner MD Primary Care Provider Acti ve Start: June 05, 2024 End: June 05, 2024 Dr. Daksha Turner MD Attending Provider Active Start: June 05, 2024 End: June 05, 2024 Dr. Daksha Turner MD Referring Provider Active Start: June 05, 2024 End: June 05, 2024 Team Status: Inactive Member Role/Relationship Status Dates Dr. Daksha Turner MD Primary Care Provider Acti ve Start: June 13, 2024 End: June 13, 2024 Dr. Dangelo Botello MD Attending Provider Active S tart: June 13, 2024 End: June 13, 2024 Dr. Dangelo Botello MD Referring Provider Active S tart: June 13, 2024 End: June 13, 2024 Team Status: Inactive Member Role/Relationship Status Dates Dr. Daksha Turner MD Primary Care Provider Acti ve Start: June 20, 2024 End: June 20, 2024 Dr. Dangelo Botello MD Attending Provider Active S tart: June 20, 2024 End: June 20, 2024 Dr. Dangelo Botello MD Referring Provider Active S tart: June 20, 2024 End: June 20, 2024 Team Status: Inactive Member Role/Relationship Status Dates Dr. Daksha Turner MD Primary Care Provider Acti ve Start: June 20, 2024 End: June 20, 2024 Dr. Daksha Turner MD Referring Provider Active Start: June 20, 2024 End: June 20, 2024 Dr. Dangelo Botello MD Attending Provider Active S tart: June 20, 2024 End: June 20, 2024 Team Status: Inactive Member Role/Relationship Status Dates Dr. Daksha Turner MD Primary Care Provider Acti ve Start: August 14, 2024 End: August 14, 2024 Dr. Daksha Turner MD Referring Provider Active Start: August 14, 2024 End: August 14, 2024 Gini Couch NP, SLATE HANDLER-C Attending Provider Active Start: August 14, 2024 End: August 14, 2024 Team Status: Inactive Member Role/Relationship Status Dates Dr. Daksha Turner MD Primary Care Provider Acti ve Start: August 14, 2024 End: August 14, 2024 Gini Couch NP, SLATE HANDLER-C Attending Provider Active Start: August 14, 2024 End: August 14, 2024 Gini Couch NP, SLATE HANDLER-C Referring Provider Active Start: August 14, 2024 End: August 14, 2024 Team Status: Inactive Member Role/Relationship Status Dates Dr. Daksha Turner MD Primary Care Provider Acti ve Start: August 14, 2024 End: September 04, 2024 Dr. Daksha Turner MD Attending Provider Active Start: August 14, 2024 End: September 04, 2024 Dr. Daksha Turner MD Referring Provider Active Start: August 14, 2024 End: September 04, 2024 Goals (unrecognized section and content) Goals may be documented in a n alternate sectionGoals may be documented in an alternate sectionGoals may be documented in an alternate sectionGoals may be documented in an alternate sectionGoals may be documented in an alternate sectionGoals may be documented in an alternate sectionGoals may be documented in an alternate sectionGoals may be documented in an alternate sectionGoals may be documented in an alternate sectionGoals may be documented in an alternate sectionGoals may be documented in an alternate sectionGoals may be documented in an alternate sectionGoals may be documented in an alternate sectionGoals may be documented in an alternate section Source Comments (unrecognize d section and content) In the event this informatio n is protected by the Federal Confidentiality of Alcohol and Drug Abuse Patient Records regulations: The Federal rules restrict any use of the information to criminally investigate or prosecute any alcohol or drug abuse patient.[facility]In the event this information is protected by the Federal Confidentiality of Alcohol and Drug Abuse Patient Records regulations: The Federal rules restrict any use of the information to criminally investigate or prosecute any alcohol or drug abuse patient.[facility] HospitalIn the event this information is protected by the Federal Confidentiality of Alcohol and Drug Abuse Patient Records regulations: The Federal rules restrict any use of the information to criminally investigate or prosecute any alcohol or drug abuse patient.[facility] HospitalIn the event this information is protected by the Federal Confidentiality of Alcohol and Drug Abuse Patient Records regulations: The Federal rules restrict any use of the information to criminally investigate or prosecute any alcohol or drug abuse patient.[facility] HospitalIn the event this information is protected by the Federal Confidentiality of Alcohol and Drug Abuse Patient Records regulations: The Federal rules restrict any use of the information to criminally investigate or prosecute any alcohol or drug abuse patient.[facility] HospitalIn the event this information is protected by the Federal Confidentiality of Alcohol and Drug Abuse Patient Records regulations: The Federal rules restrict any use of the information to criminally investigate or prosecute any alcohol or drug abuse patient.[facility] HospitalIn the event this information is protected by the Federal Confidentiality of Alcohol and Drug Abuse Patient Records regulations: The Federal rules restrict any use of the information to criminally investigate or prosecute any alcohol or drug abuse patient.[facility] HospitalIn the event this information is protected by the Federal Confidentiality of Alcohol and Drug Abuse Patient Records regulations: The Federal rules restrict any use of the information to criminally investigate or prosecute any alcohol or drug abuse patient.[facility] HospitalIn the event this information is protected by the Federal Confidentiality of Alcohol and Drug Abuse Patient Records regulations: The Federal rules restrict any use of the information to criminally investigate or prosecute any alcohol or drug abuse patient.[facility] HospitalIn the event this information is protected by the Federal Confidentiality of Alcohol and Drug Abuse Patient Records regulations: The Federal rules restrict any use of the information to criminally investigate or prosecute any alcohol or drug abuse patient.[facility] HospitalIn the event this information is protected by the Federal Confidentiality of Alcohol and Drug Abuse Patient Records regulations: The Federal rules restrict any use of the information to criminally investigate or prosecute any alcohol or drug abuse patient.[facility] HospitalIn the event this information is protected by the Federal Confidentiality of Alcohol and Drug Abuse Patient Records regulations: The Federal rules restrict any use of the information to criminally investigate or prosecute any alcohol or drug abuse patient.[facility] HospitalIn the event this information is protected by the Federal Confidentiality of Alcohol and Drug Abuse Patient Records regulations: The Federal rules restrict any use of the information to criminally investigate or prosecute any alcohol or drug abuse patient.[facility] HospitalIn the event this information is protected by the Federal Confidentiality of Alcohol and Drug Abuse Patient Records regulations: The Federal rules restrict any use of the information to criminally investigate or prosecute any alcohol or drug abuse patient.[facility] HospitalIn the event this information is protected by the Federal Confidentiality of Alcohol and Drug Abuse Patient Records regulations: The Federal rules restrict any use of the information to criminally investigate or prosecute any alcohol or drug abuse patient.[facility] HospitalIn the event this information is protected by the Federal Confidentiality of Alcohol and Drug Abuse Patient Records regulations: The Federal rules restrict any use of the information to criminally investigate or prosecute any alcohol or drug abuse patient.[facility] HospitalIn the event this information is protected by the Federal Confidentiality of Alcohol and Drug Abuse Patient Records regulations: The Federal rules restrict any use of the information to criminally investigate or prosecute any alcohol or drug abuse patient.[facility] HospitalIn the event this information is protected by the Federal Confidentiality of Alcohol and Drug Abuse Patient Records regulations: The Federal rules restrict any use of the information to criminally investigate or prosecute any alcohol or drug abuse patient.[facility] HospitalIn the event this information is protected by the Federal Confidentiality of Alcohol and Drug Abuse Patient Records regulations: The Federal rules restrict any use of the information to criminally investigate or prosecute any alcohol or drug abuse patient.[facility] HospitalIn the event this information is protected by the Federal Confidentiality of Alcohol and Drug Abuse Patient Records regulations: The Federal rules restrict any use of the information to criminally investigate or prosecute any alcohol or drug abuse patient.[facility] HospitalIn the event this information is protected by the Federal Confidentiality of Alcohol and Drug Abuse Patient Records regulations: The Federal rules restrict any use of the information to criminally investigate or prosecute any alcohol or drug abuse patient.[facility] HospitalIn the event this information is protected by the Federal Confidentiality of Alcohol and Drug Abuse Patient Records regulations: The Federal rules restrict any use of the information to criminally investigate or prosecute any alcohol or drug abuse patient.[facility] HospitalIn the event this information is protected by the Federal Confidentiality of Alcohol and Drug Abuse Patient Records regulations: The Federal rules restrict any use of the information to criminally investigate or prosecute any alcohol or drug abuse patient.[facility] HospitalIn the event this information is protected by the Federal Confidentiality of Alcohol and Drug Abuse Patient Records regulations: The Federal rules restrict any use of the information to criminally investigate or prosecute any alcohol or drug abuse patient.[facility] HospitalIn the event this information is protected by the Federal Confidentiality of Alcohol and Drug Abuse Patient Records regulations: The Federal rules restrict any use of the information to criminally investigate or prosecute any alcohol or drug abuse patient.[facility] HospitalIn the event this information is protected by the Federal Confidentiality of Alcohol and Drug Abuse Patient Records regulations: The Federal rules restrict any use of the information to criminally investigate or prosecute any alcohol or drug abuse patient.[facility] HospitalIn the event this information is protected by the Federal Confidentiality of Alcohol and Drug Abuse Patient Records regulations: The Federal rules restrict any use of the information to criminally investigate or prosecute any alcohol or drug abuse patient.[facility] HospitalIn the event this information is protected by the Federal Confidentiality of Alcohol and Drug Abuse Patient Records regulations: The Federal rules restrict any use of the information to criminally investigate or prosecute any alcohol or drug abuse patient.[facility] HospitalIn the event this information is protected by the Federal Confidentiality of Alcohol and Drug Abuse Patient Records regulations: The Federal rules restrict any use of the information to criminally investigate or prosecute any alcohol or drug abuse patient.[facility] HospitalIn the event this information is protected by the Federal Confidentiality of Alcohol and Drug Abuse Patient Records regulations: The Federal rules restrict any use of the information to criminally investigate or prosecute any alcohol or drug abuse patient.[facility] HospitalIn the event this information is protected by the Federal Confidentiality of Alcohol and Drug Abuse Patient Records regulations: The Federal rules restrict any use of the information to criminally investigate or prosecute any alcohol or drug abuse patient.[facility] HospitalIn the event this information is protected by the Federal Confidentiality of Alcohol and Drug Abuse Patient Records regulations: The Federal rules restrict any use of the information to criminally investigate or prosecute any alcohol or drug abuse patient.[facility] HospitalIn the event this information is protected by the Federal Confidentiality of Alcohol and Drug Abuse Patient Records regulations: The Federal rules restrict any use of the information to criminally investigate or prosecute any alcohol or drug abuse patient.[facility] HospitalIn the event this information is protected by the Federal Confidentiality of Alcohol and Drug Abuse Patient Records regulations: The Federal rules restrict any use of the information to criminally investigate or prosecute any alcohol or drug abuse patient.[facility] HospitalIn the event this information is protected by the Federal Confidentiality of Alcohol and Drug Abuse Patient Records regulations: The Federal rules restrict any use of the information to criminally investigate or prosecute any alcohol or drug abuse patient.[facility] HospitalIn the event this information is protected by the Federal Confidentiality of Alcohol and Drug Abuse Patient Records regulations: The Federal rules restrict any use of the information to criminally investigate or prosecute any alcohol or drug abuse patient.[facility] HospitalIn the event this information is protected by the Federal Confidentiality of Alcohol and Drug Abuse Patient Records regulations: The Federal rules restrict any use of the information to criminally investigate or prosecute any alcohol or drug abuse patient.[facility] HospitalIn the event this information is protected by the Federal Confidentiality of Alcohol and Drug Abuse Patient Records regulations: The Federal rules restrict any use of the information to criminally investigate or prosecute any alcohol or drug abuse patient.[facility] HospitalIn the event this information is protected by the Federal Confidentiality of Alcohol and Drug Abuse Patient Records regulations: The Federal rules restrict any use of the information to criminally investigate or prosecute any alcohol or drug abuse patient.[facility] HospitalIn the event this information is protected by the Federal Confidentiality of Alcohol and Drug Abuse Patient Records regulations: The Federal rules restrict any use of the information to criminally investigate or prosecute any alcohol or drug abuse patient.[facility] HospitalIn the event this information is protected by the Federal Confidentiality of Alcohol and Drug Abuse Patient Records regulations: The Federal rules restrict any use of the information to criminally investigate or prosecute any alcohol or drug abuse patient.[facility] HospitalIn the event this information is protected by the Federal Confidentiality of Alcohol and Drug Abuse Patient Records regulations: The Federal rules restrict any use of the information to criminally investigate or prosecute any alcohol or drug abuse patient.[facility] HospitalIn the event this information is protected by the Federal Confidentiality of Alcohol and Drug Abuse Patient Records regulations: The Federal rules restrict any use of the information to criminally investigate or prosecute any alcohol or drug abuse patient.[facility] HospitalIn the event this information is protected by the Federal Confidentiality of Alcohol and Drug Abuse Patient Records regulations: The Federal rules restrict any use of the information to criminally investigate or prosecute any alcohol or drug abuse patient.[facility] HospitalIn the event this information is protected by the Federal Confidentiality of Alcohol and Drug Abuse Patient Records regulations: The Federal rules restrict any use of the information to criminally investigate or prosecute any alcohol or drug abuse patient.[facility] HospitalIn the event this information is protected by the Federal Confidentiality of Alcohol and Drug Abuse Patient Records regulations: The Federal rules restrict any use of the information to criminally investigate or prosecute any alcohol or drug abuse patient.[facility] HospitalIn the event this information is protected by the Federal Confidentiality of Alcohol and Drug Abuse Patient Records regulations: The Federal rules restrict any use of the information to criminally investigate or prosecute any alcohol or drug abuse patient.[facility] HospitalIn the event this information is protected by the Federal Confidentiality of Alcohol and Drug Abuse Patient Records regulations: The Federal rules restrict any use of the information to criminally investigate or prosecute any alcohol or drug abuse patient.[facility] HospitalIn the event this information is protected by the Federal Confidentiality of Alcohol and Drug Abuse Patient Records regulations: The Federal rules restrict any use of the information to criminally investigate or prosecute any alcohol or drug abuse patient.[facility] HospitalIn the event this information is protected by the Federal Confidentiality of Alcohol and Drug Abuse Patient Records regulations: The Federal rules restrict any use of the information to criminally investigate or prosecute any alcohol or drug abuse patient.[facility] HospitalIn the event this information is protected by the Federal Confidentiality of Alcohol and Drug Abuse Patient Records regulations: The Federal rules restrict any use of the information to criminally investigate or prosecute any alcohol or drug abuse patient.[facility] HospitalIn the event this information is protected by the Federal Confidentiality of Alcohol and Drug Abuse Patient Records regulations: The Federal rules restrict any use of the information to criminally investigate or prosecute any alcohol or drug abuse patient.[facility] HospitalIn the event this information is protected by the Federal Confidentiality of Alcohol and Drug Abuse Patient Records regulations: The Federal rules restrict any use of the information to criminally investigate or prosecute any alcohol or drug abuse patient.[facility] HospitalIn the event this information is protected by the Federal Confidentiality of Alcohol and Drug Abuse Patient Records regulations: The Federal rules restrict any use of the information to criminally investigate or prosecute any alcohol or drug abuse patient.[facility] HospitalIn the event this information is protected by the Federal Confidentiality of Alcohol and Drug Abuse Patient Records regulations: The Federal rules restrict any use of the information to criminally investigate or prosecute any alcohol or drug abuse patient.[facility] HospitalIn the event this information is protected by the Federal Confidentiality of Alcohol and Drug Abuse Patient Records regulations: The Federal rules restrict any use of the information to criminally investigate or prosecute any alcohol or drug abuse patient.[facility] HospitalIn the event this information is protected by the Federal Confidentiality of Alcohol and Drug Abuse Patient Records regulations: The Federal rules restrict any use of the information to criminally investigate or prosecute any alcohol or drug abuse patient.[facility] HospitalIn the event this information is protected by the Federal Confidentiality of Alcohol and Drug Abuse Patient Records regulations: The Federal rules restrict any use of the information to criminally investigate or prosecute any alcohol or drug abuse patient.[facility] HospitalIn the event this information is protected by the Federal Confidentiality of Alcohol and Drug Abuse Patient Records regulations: The Federal rules restrict any use of the information to criminally investigate or prosecute any alcohol or drug abuse patient.[facility] HospitalIn the event this information is protected by the Federal Confidentiality of Alcohol and Drug Abuse Patient Records regulations: The Federal rules restrict any use of the information to criminally investigate or prosecute any alcohol or drug abuse patient.[facility] HospitalIn the event this information is protected by the Federal Confidentiality of Alcohol and Drug Abuse Patient Records regulations: The Federal rules restrict any use of the information to criminally investigate or prosecute any alcohol or drug abuse patient.[facility] HospitalIn the event this information is protected by the Federal Confidentiality of Alcohol and Drug Abuse Patient Records regulations: The Federal rules restrict any use of the information to criminally investigate or prosecute any alcohol or drug abuse patient.[facility] HospitalIn the event this information is protected by the Federal Confidentiality of Alcohol and Drug Abuse Patient Records regulations: The Federal rules restrict any use of the information to criminally investigate or prosecute any alcohol or drug abuse patient.[facility] HospitalIn the event this information is protected by the Federal Confidentiality of Alcohol and Drug Abuse Patient Records regulations: The Federal rules restrict any use of the information to criminally investigate or prosecute any alcohol or drug abuse patient.[facility] HospitalIn the event this information is protected by the Federal Confidentiality of Alcohol and Drug Abuse Patient Records regulations: The Federal rules restrict any use of the information to criminally investigate or prosecute any alcohol or drug abuse patient.[facility] HospitalIn the event this information is protected by the Federal Confidentiality of Alcohol and Drug Abuse Patient Records regulations: The Federal rules restrict any use of the information to criminally investigate or prosecute any alcohol or drug abuse patient.[facility] HospitalIn the event this information is protected by the Federal Confidentiality of Alcohol and Drug Abuse Patient Records regulations: The Federal rules restrict any use of the information to criminally investigate or prosecute any alcohol or drug abuse patient.[facility] HospitalIn the event this information is protected by the Federal Confidentiality of Alcohol and Drug Abuse Patient Records regulations: The Federal rules restrict any use of the information to criminally investigate or prosecute any alcohol or drug abuse patient.[facility] HospitalIn the event this information is protected by the Federal Confidentiality of Alcohol and Drug Abuse Patient Records regulations: The Federal rules restrict any use of the information to criminally investigate or prosecute any alcohol or drug abuse patient.[facility] HospitalIn the event this information is protected by the Federal Confidentiality of Alcohol and Drug Abuse Patient Records regulations: The Federal rules restrict any use of the information to criminally investigate or prosecute any alcohol or drug abuse patient.[facility] HospitalIn the event this information is protected by the Federal Confidentiality of Alcohol and Drug Abuse Patient Records regulations: The Federal rules restrict any use of the information to criminally investigate or prosecute any alcohol or drug abuse patient.[facility] HospitalIn the event this information is protected by the Federal Confidentiality of Alcohol and Drug Abuse Patient Records regulations: The Federal rules restrict any use of the information to criminally investigate or prosecute any alcohol or drug abuse patient.[facility] HospitalIn the event this information is protected by the Federal Confidentiality of Alcohol and Drug Abuse Patient Records regulations: The Federal rules restrict any use of the information to criminally investigate or prosecute any alcohol or drug abuse patient.[facility] HospitalIn the event this information is protected by the Federal Confidentiality of Alcohol and Drug Abuse Patient Records regulations: The Federal rules restrict any use of the information to criminally investigate or prosecute any alcohol or drug abuse patient.[facility] HospitalIn the event this information is protected by the Federal Confidentiality of Alcohol and Drug Abuse Patient Records regulations: The Federal rules restrict any use of the information to criminally investigate or prosecute any alcohol or drug abuse patient.[facility] HospitalIn the event this information is protected by the Federal Confidentiality of Alcohol and Drug Abuse Patient Records regulations: The Federal rules restrict any use of the information to criminally investigate or prosecute any alcohol or drug abuse patient.[facility] HospitalIn the event this information is protected by the Federal Confidentiality of Alcohol and Drug Abuse Patient Records regulations: The Federal rules restrict any use of the information to criminally investigate or prosecute any alcohol or drug abuse patient.[facility] HospitalIn the event this information is protected by the Federal Confidentiality of Alcohol and Drug Abuse Patient Records regulations: The Federal rules restrict any use of the information to criminally investigate or prosecute any alcohol or drug abuse patient.[facility] HospitalIn the event this information is protected by the Federal Confidentiality of Alcohol and Drug Abuse Patient Records regulations: The Federal rules restrict any use of the information to criminally investigate or prosecute any alcohol or drug abuse patient.[facility] HospitalIn the event this information is protected by the Federal Confidentiality of Alcohol and Drug Abuse Patient Records regulations: The Federal rules restrict any use of the information to criminally investigate or prosecute any alcohol or drug abuse patient.[facility] HospitalIn the event this information is protected by the Federal Confidentiality of Alcohol and Drug Abuse Patient Records regulations: The Federal rules restrict any use of the information to criminally investigate or prosecute any alcohol or drug abuse patient.[facility] HospitalIn the event this information is protected by the Federal Confidentiality of Alcohol and Drug Abuse Patient Records regulations: The Federal rules restrict any use of the information to criminally investigate or prosecute any alcohol or drug abuse patient.[facility] HospitalIn the event this information is protected by the Federal Confidentiality of Alcohol and Drug Abuse Patient Records regulations: The Federal rules restrict any use of the information to criminally investigate or prosecute any alcohol or drug abuse patient.[facility] HospitalIn the event this information is protected by the Federal Confidentiality of Alcohol and Drug Abuse Patient Records regulations: The Federal rules restrict any use of the information to criminally investigate or prosecute any alcohol or drug abuse patient.[facility] HospitalIn the event this information is protected by the Federal Confidentiality of Alcohol and Drug Abuse Patient Records regulations: The Federal rules restrict any use of the information to criminally investigate or prosecute any alcohol or drug abuse patient.[facility] HospitalIn the event this information is protected by the Federal Confidentiality of Alcohol and Drug Abuse Patient Records regulations: The Federal rules restrict any use of the information to criminally investigate or prosecute any alcohol or drug abuse patient.[facility] HospitalIn the event this information is protected by the Federal Confidentiality of Alcohol and Drug Abuse Patient Records regulations: The Federal rules restrict any use of the information to criminally investigate or prosecute any alcohol or drug abuse patient.[facility] HospitalIn the event this information is protected by the Federal Confidentiality of Alcohol and Drug Abuse Patient Records regulations: The Federal rules restrict any use of the information to criminally investigate or prosecute any alcohol or drug abuse patient.[facility] HospitalIn the event this information is protected by the Federal Confidentiality of Alcohol and Drug Abuse Patient Records regulations: The Federal rules restrict any use of the information to criminally investigate or prosecute any alcohol or drug abuse patient.[facility] HospitalIn the event this information is protected by the Federal Confidentiality of Alcohol and Drug Abuse Patient Records regulations: The Federal rules restrict any use of the information to criminally investigate or prosecute any alcohol or drug abuse patient.[facility] HospitalIn the event this information is protected by the Federal Confidentiality of Alcohol and Drug Abuse Patient Records regulations: The Federal rules restrict any use of the information to criminally investigate or prosecute any alcohol or drug abuse patient.[facility] HospitalIn the event this information is protected by the Federal Confidentiality of Alcohol and Drug Abuse Patient Records regulations: The Federal rules restrict any use of the information to criminally investigate or prosecute any alcohol or drug abuse patient.[facility] HospitalIn the event this information is protected by the Federal Confidentiality of Alcohol and Drug Abuse Patient Records regulations: The Federal rules restrict any use of the information to criminally investigate or prosecute any alcohol or drug abuse patient.[facility] HospitalIn the event this information is protected by the Federal Confidentiality of Alcohol and Drug Abuse Patient Records regulations: The Federal rules restrict any use of the information to criminally investigate or prosecute any alcohol or drug abuse patient.[facility] HospitalIn the event this information is protected by the Federal Confidentiality of Alcohol and Drug Abuse Patient Records regulations: The Federal rules restrict any use of the information to criminally investigate or prosecute any alcohol or drug abuse patient.[facility] HospitalIn the event this information is protected by the Federal Confidentiality of Alcohol and Drug Abuse Patient Records regulations: The Federal rules restrict any use of the information to criminally investigate or prosecute any alcohol or drug abuse patient.[facility] HospitalIn the event this information is protected by the Federal Confidentiality of Alcohol and Drug Abuse Patient Records regulations: The Federal rules restrict any use of the information to criminally investigate or prosecute any alcohol or drug abuse patient.[facility] HospitalIn the event this information is protected by the Federal Confidentiality of Alcohol and Drug Abuse Patient Records regulations: The Federal rules restrict any use of the information to criminally investigate or prosecute any alcohol or drug abuse patient.[facility] HospitalIn the event this information is protected by the Federal Confidentiality of Alcohol and Drug Abuse Patient Records regulations: The Federal rules restrict any use of the information to criminally investigate or prosecute any alcohol or drug abuse patient.[facility] HospitalIn the event this information is protected by the Federal Confidentiality of Alcohol and Drug Abuse Patient Records regulations: The Federal rules restrict any use of the information to criminally investigate or prosecute any alcohol or drug abuse patient.[facility] HospitalIn the event this information is protected by the Federal Confidentiality of Alcohol and Drug Abuse Patient Records regulations: The Federal rules restrict any use of the information to criminally investigate or prosecute any alcohol or drug abuse patient.[facility] HospitalIn the event this information is protected by the Federal Confidentiality of Alcohol and Drug Abuse Patient Records regulations: The Federal rules restrict any use of the information to criminally investigate or prosecute any alcohol or drug abuse patient.[facility] HospitalIn the event this information is protected by the Federal Confidentiality of Alcohol and Drug Abuse Patient Records regulations: The Federal rules restrict any use of the information to criminally investigate or prosecute any alcohol or drug abuse patient.[facility] HospitalIn the event this information is protected by the Federal Confidentiality of Alcohol and Drug Abuse Patient Records regulations: The Federal rules restrict any use of the information to criminally investigate or prosecute any alcohol or drug abuse patient.[facility] HospitalIn the event this information is protected by the Federal Confidentiality of Alcohol and Drug Abuse Patient Records regulations: The Federal rules restrict any use of the information to criminally investigate or prosecute any alcohol or drug abuse patient.[facility] HospitalIn the event this information is protected by the Federal Confidentiality of Alcohol and Drug Abuse Patient Records regulations: The Federal rules restrict any use of the information to criminally investigate or prosecute any alcohol or drug abuse patient.[facility] HospitalIn the event this information is protected by the Federal Confidentiality of Alcohol and Drug Abuse Patient Records regulations: The Federal rules restrict any use of the information to criminally investigate or prosecute any alcohol or drug abuse patient.[facility] HospitalIn the event this information is protected by the Federal Confidentiality of Alcohol and Drug Abuse Patient Records regulations: The Federal rules restrict any use of the information to criminally investigate or prosecute any alcohol or drug abuse patient.[facility] HospitalIn the event this information is protected by the Federal Confidentiality of Alcohol and Drug Abuse Patient Records regulations: The Federal rules restrict any use of the information to criminally investigate or prosecute any alcohol or drug abuse patient.[facility] HospitalIn the event this information is protected by the Federal Confidentiality of Alcohol and Drug Abuse Patient Records regulations: The Federal rules restrict any use of the information to criminally investigate or prosecute any alcohol or drug abuse patient.[facility] HospitalIn the event this information is protected by the Federal Confidentiality of Alcohol and Drug Abuse Patient Records regulations: The Federal rules restrict any use of the information to criminally investigate or prosecute any alcohol or drug abuse patient.[facility] HospitalIn the event this information is protected by the Federal Confidentiality of Alcohol and Drug Abuse Patient Records regulations: The Federal rules restrict any use of the information to criminally investigate or prosecute any alcohol or drug abuse patient.[facility] HospitalIn the event this information is protected by the Federal Confidentiality of Alcohol and Drug Abuse Patient Records regulations: The Federal rules restrict any use of the information to criminally investigate or prosecute any alcohol or drug abuse patient.[facility] HospitalIn the event this information is protected by the Federal Confidentiality of Alcohol and Drug Abuse Patient Records regulations: The Federal rules restrict any use of the information to criminally investigate or prosecute any alcohol or drug abuse patient.[facility] HospitalIn the event this information is protected by the Federal Confidentiality of Alcohol and Drug Abuse Patient Records regulations: The Federal rules restrict any use of the information to criminally investigate or prosecute any alcohol or drug abuse patient.[facility] HospitalIn the event this information is protected by the Federal Confidentiality of Alcohol and Drug Abuse Patient Records regulations: The Federal rules restrict any use of the information to criminally investigate or prosecute any alcohol or drug abuse patient.[facility] HospitalIn the event this information is protected by the Federal Confidentiality of Alcohol and Drug Abuse Patient Records regulations: The Federal rules restrict any use of the information to criminally investigate or prosecute any alcohol or drug abuse patient.[facility] HospitalIn the event this information is protected by the Federal Confidentiality of Alcohol and Drug Abuse Patient Records regulations: The Federal rules restrict any use of the information to criminally investigate or prosecute any alcohol or drug abuse patient.[facility] HospitalIn the event this information is protected by the Federal Confidentiality of Alcohol and Drug Abuse Patient Records regulations: The Federal rules restrict any use of the information to criminally investigate or prosecute any alcohol or drug abuse patient.[facility] HospitalIn the event this information is protected by the Federal Confidentiality of Alcohol and Drug Abuse Patient Records regulations: The Federal rules restrict any use of the information to criminally investigate or prosecute any alcohol or drug abuse patient.[facility] HospitalIn the event this information is protected by the Federal Confidentiality of Alcohol and Drug Abuse Patient Records regulations: The Federal rules restrict any use of the information to criminally investigate or prosecute any alcohol or drug abuse patient.[facility] HospitalIn the event this information is protected by the Federal Confidentiality of Alcohol and Drug Abuse Patient Records regulations: The Federal rules restrict any use of the information to criminally investigate or prosecute any alcohol or drug abuse patient.[facility] Reason for Visit (unrecogniz ed section and content) Reason Comments Established Patient Specialty Diagnoses / Procedures Referred By Sujatha t Referred To Contact Hematology/Oncology / HEMATOLOGY/ONCOLOGY Diagnoses Malignant neoplasm of right kidney, except renal pelvis STUDY PT [id number] ([facility] 1820) C64.1 NCT [id number] PER SLIP Procedures OFFICE/OUTPATIENT ESTABLISHED MOD MDM 30-39 MIN EST PATIENT/[place] [address] [place] [address] Godfrey Ohara, [employer] [employer] [address] [place] [address] Referral ID Status Reason Start Date Expiration Date Visits Requested Visits Authorized [id number] Denied Financial Clearance Required - OON Payor OON Notification Letter Clearance Not Met - Admin/Ssds Mk 2 Advanced Operator/D irector Advise to Postpone/Resched ule or Not Proceed 10/09/2021 01/07/2022 1 0 Specialty Diagnoses / Procedures Referred By Sujatha t Referred To Contact Diagnoses Nonrheumatic mitral valve regurgitation Procedures CATH PLMT L HRT & ARTS W/NJX & ANGIO IMG S&I PRQ TRLUML CORONARY STENT W/ANGIO ONE ART/BRNCH CORONARY ANGIO W CATH PLACE W IMAGE INJECT & INTERP W LT HEART CATH W INJECT LT VENTRGRAPHY INSERT INTRACORONARY STENT-PER MAJOR VESSEL OR [facility] [address] [place] [address] Referral ID Status Reason Start Date Expiration Date Visits Re quested Visits Authorized [id number] [address] Specialty Diagnoses / Procedures Referred By Contac t Referred To Contact CT IMAGING Diagnoses Malignant neoplasm of right kidney, except renal pelvis (HCC) Renal cell carcinoma, unspecified laterality (HCC) Procedures CT CHEST W IVCON DIAGNOSTIC COMPUTED TOMOGRAPHY THORAX W/CONTRAST Kenneth Chester MD [address] [place] [address] Ct Imaging Referral ID Status Reason Start Date Expiration Date V isits Requested Visits Authorized [id number] Closed Auto-Generate d Referral 07/14/2021 08/28/2021 1 1 Reason Comments Results Reason Comments New Patient Reason Comments Biopsy Request Specialty Diagnoses / Procedures [facility] To Contact RADIO CT SCAN [facility] Diagnoses Malignant neoplasm of kidney, unspecified laterality (HCC) Malignant neoplasm of kidney excluding renal pelvis, unspecified laterality (HCC) Procedures CT ABD/PEL W IVCON CT ABD & PELVIS W/CONTRAST Adriana Hodge MD [address] [place] [address] [facility] [address] [place] [address] Referral ID Status Reason Start Date Expiration Date V isits Requested Visits Authorized [id number] Closed Auto-Generate d Referral 06/26/2021 08/10/2021 1 1 Specialty Diagnoses / Procedures [facility] To Contact CT IMAGING Diagnoses Malignant neoplasm of kidney, unspecified laterality (HCC) Malignant neoplasm of kidney excluding renal pelvis, unspecified laterality (HCC) Procedures CT ABD/PEL WO IVCON CT ABD & PELVIS W/O CONTRAST Adriana Hodge MD [address] [place] [address] Ct Imaging Referral ID Status Reason Start Date Expiration Date Visits Requested Visits Authorized [id number] Waiting for Response Auto-Genera mandeep Referral Patient Cleared - Admin/Chair man/Directo r advise to proceed 06/26/2021 08/10/2021 1 1 Reason Comments Radiology [place] Specialty Diagnoses / Procedures [facility] Referred To Contact MOLECULAR & FUNCTIONAL IMAGING Diagnoses Malignant neoplasm of kidney, unspecified laterality (HCC) Malignant neoplasm of kidney excluding renal pelvis, unspecified laterality (HCC) Procedures NM BONE WHOLE BODY BONE &/JOINT IMAGING WHOLE BODY Adriana Hodge MD [address] [place] [address] Molecular & Functional Imaging [address] [place] [address] Referral ID Status Reason Start Date Expiration Date V isits Requested Visits Authorized [id number] Closed Auto-Generate d Referral 06/26/2021 08/10/2021 2 2 Reason Comments Consult Specialty Diagnoses / Procedures Referred By Contac t Referred To Contact Oncology Diagnoses Malignant neoplasm of kidney, unspecified laterality (HCC) Malignant neoplasm of kidney excluding renal pelvis, unspecified laterality (HCC) Procedures CONSULT TO ONCOLOGY OFFICE/OUTPATIENT [facility] 60-74 MINUTES Adriana Hodge MD [address] [id number] Referral ID Status Reason Start Date Expiration Date V isits Requested Visits Authorized [id number] Closed PCP Requested Referral 06/23/2021 06/23/2022 1 1 Reason Comments [facility] 1820 Reason Comments Benefits Investigation Reason Comments Radiology MRI Specialty Diagnoses / Procedures Referred By Contac t Referred To Contact MR IMAGING Diagnoses Malignant neoplasm of kidney excluding renal pelvis, unspecified laterality (HCC) Renal cell carcinoma, unspecified laterality (HCC) Procedures MRI BRAIN WO/W IVCON MRI BRAIN BRAIN STEM W/O W/CONTRAST MATERIAL Kenneth Chester MD [address] [id number] Mr Imaging Referral ID Status Reason Start Date Expiration Date V isits Requested Visits Authorized [id number] Closed Auto-Generate d Referral 07/14/2021 08/28/2021 1 1 Reason Comments Shortness of Breath Hypertension Reason Comments Patient Education lisa Reason Comments Patient Education Reason Comments Blood Pressure Reason Comments Refill Request Reason Onset Date Comments Opened In Error 08/18/2021 Reason Comments Results Patient Update Laboratory Apparatus Glass Blower - Other Reason Comments Established Patient Specialty Diagnoses / Procedures Referred By Contac t Referred To Contact CT IMAGING Diagnoses SOB (shortness of breath) Procedures CT CHEST W IVCON PE DIAGNOSTIC COMPUTED TOMOGRAPHY THORAX W/CONTRAST Daksha Melo [facility] [id number] Imaging Referral ID Status Reason Start Date Expiration Date Visits Requested Visits Authorized [id number] Pending Review Auto-Generat ed Referral 09/02/2021 10/02/2022 1 1 Reason Comments Radio Gen [id number] Reason Comments Patient Update Reason Comments Laboratory Apparatus Glass Blower - Other Reason Comments Patient Question Reason Onset Date Comments Transition Of Care 09/29/2021 Pharmacy - [facility] spital Discharge 09/26/21 Heart Failure 09/29/2021 Reason Comments Follow Up Phone Call relate care dischar ge follow up-1st attempt-no contact-left vm Reason Comments Medication Problem Called [facility] and canceled rx for cabzantinib and sent new order to [facility] pharmacy. Reason Onset Date Comments Refill Request 10/21/2021 Reason Comments Anesthesia Consult Reason Comments PreOp Call Cardiac Optimization , Warfarin Clearance Reason Comments Returning Patient's Call called to say that surgery was canceled d/t an imaging issue (CT). RNCC will f/u to see if surgery is rescheduled. Reason Comments Laboratory Apparatus Glass Blower - Other Calling to get an update on the patient's surgery schedule (to see if it had been rescheduled), and to inform him that the speciality pharmacy is trying to get a hold of them to deliver his medication. Reason Comments Recheck Specialty Diagnoses / Procedures Referred By Sujatha t Referred To Contact HEMATOLOGY/ONCOLOGY Diagnoses c64.1 Procedures OFFICE VISIT Haylee Wilburn MD [address] [place] [address] [place] [address] Referral ID Status Reason Start Date Expiration Date V isits Requested Visits Authorized [id number] Closed Financial Clearance Not Required Patient Cleared - INN Insurance Found 10/23/2021 03/07/2022 [address] Specialty Diagnoses / Procedures Referred By Sujatha t Referred To Contact CT IMAGING Diagnoses [id number] neoplasm of right kidney, except renal pelvis (HCC) Procedures CT CHEST W IVCON CT ABD/PEL W IVCON Adriana Hodge MD [address] [place] [address] Ct Imaging Referral ID Status Reason Start Date Expiration Date Visits Requested Visits Authorized [id number] Closed Financial Clearance Required - OON Payor OON Notification Letter Patient Cleared - Admin/Ssds Mk 2 Advanced Operator/D irector advise to proceed 11/17/2021 01/16/2022 1 0 Reason Comments Patient Update Called patient to in form him that the speciality pharmacy is going to call to set-up delivery time for his chemo medication. Patient verbalized understanding. America Schwartz, RN, BSN, OCN Reason Comments Cancer Pain Specialty Diagnoses / Procedures Referred By Contac t Referred To Contact RADIATION ONCOLOGY Diagnoses Prostate Cancer Procedures Consult and Treat Karin Cox MD [address] [phone] Alfredo Xavier MD [address] [place] [address] [place] [address] Referral ID Status Reason Start Date Expiration Date Visits Requested Visits Authorized [id number] Pending Review OON/Self Pay Override 12/03/2021 03/03/2022 1 1 Reason Comments New patient, to establish relationship Invalid number Letter Request Reason Comments Laboratory Apparatus Glass Blower - Other Patient Update Reason Comments Informed Consent Reason Onset Date Comments Refill Request 01/22/2022 Specialty Diagnoses / Procedures Referred By Contac t Referred To Contact RADIATION ONCOLOGY Diagnoses Renal Cell ca Procedures OFFICE CONSULTATION NEW/ESTAB PATIENT 60 MIN monitor patient after completion of radiation treatment Suman Peterson, KEYUR.MINE PATROL [address] [place] [address] [place] [address] Referral ID Status Reason Start Date Expiration Date V isits Requested Visits Authorized [id number] Closed OON/Self Pay Override Patient Cleared - INN Insurance Found 12/26/2021 03/26/2022 1 1 Reason Comments New Patient self-referral ANÍBAL fr connie [facility] in [place].Reason for visit: hospital discharge from, 09-30-21 for new onset A. fib/RVRCardiac: 01/19/2022 EKG / 09/26/2021 Echo / 09/25/2021 EPS: Cardioversion08/05/2021 cardiac cathTelemetry: 09/26/2021 image of EKGLab work: 01/23/2022 through 06/20/2021Imagin01/19/2022 x-ray of the chest /11/20/2021 CT of the chestNote/strands: 09/22 - 09/30/2021 discharge summary Specialty Diagnoses / Procedures Referred By Contac t Referred To Contact CARDIOLOGY Diagnoses Self-referral Procedures FOLLOW-UP/REASSESSMENT Daksha Turner MD [address] [place] [address] [facility] [address] [place] [address] Referral ID Status Reason Start Date Expiration Date V isits Requested Visits Authorized [id number] Closed OON/Self Pay Override Patient Cleared - INN Insurance Found 12/25/2021 02/23/2022 1 1 Specialty Diagnoses / Procedures Referred By Contac t Referred To Contact HEMATOLOGY/ONCOLOGY Diagnoses Renal cell carcinoma of right kidney (HCC) Metastatic renal cell carcinoma (HCC) Procedures OFFICE VISIT W HEM/ONC Haylee Wilburn [place] [address] [address] [address] Referral ID Status Reason Start Date Expiration Date V isits Requested Visits Authorized [id number] Closed OON/Self Pay Override Patient Cleared - INN Insurance Found 02/12/2022 04/13/2022 1 1 Reason Comments Recheck Specialty Diagnoses / Procedures Referred By Contac t Referred To Contact HEMATOLOGY/ONCOLOGY Diagnoses Malignant neoplasm of unspecified kidney, except renal pelvis Procedures OFFICE/OUTPATIENT ESTABLISHED MOD MDM 30-39 MIN Haylee Wilburn MD [facility] [place] [id number] [place] [address] [place] [address] Referral ID Status Reason Start Date Expiration Date Visits Requested Visits Authorized [id number] Pending Review OON/Self Pay Override 03/11/2022 06/09/2022 1 1 Reason Onset Date Comments SPP Oral Oncology/hematology - Treatment Referra l 03/12/2022 Inlyta Insurance Authorization 03/12/2022 Pending PA Reason Comments Appointment Reason Onset Date Comments Refill Request 03/16/2022 [facility] to [facility] Reason Comments Appointment Laboratory Apparatus Glass Blower - Other Specialty Diagnoses / Procedures Referred By Contac t Referred To Contact CT IMAGING Diagnoses Renal cell carcinoma of right kidney (HCC) Procedures CT CHEST W IVCON DIAGNOSTIC COMPUTED TOMOGRAPHY THORAX W/CONTRAST Haylee Wilburn MD [address] [facility] [place] [address] Ct Imaging Referral ID Status Reason Start Date Expiration Date V isits Requested Visits Authorized [id number] Closed Auto-Generat ed Referral Clearance Not Met - Admin/Chairm an/Director Advise to Postpone/Res chedule or Not Proceed 03/13/2022 04/27/2022 2 2 Reason Comments Appointment No show <item> Privacy Markings (unrecogniz ed section and content) Section Author: America Matias PROHIBITION ON REDISCLOSURE OF CONFIDENTIAL INFORMATION This notice accompanies a disclosure of information concerning a client made to you with the consent of such client. FOR RECORDS PERTAINING TO PATIENTS WHO ARE OR HAVE BEEN ENROLLED IN A CHEMICAL DEPENDENCY/SUBSTANCEABUSE PROGRAM, SOME INFORMATION MAY BE OMITTED. This clinical summary was aggregated from multiple sources. Caution should be exercised in using it in the provision of clinical care. This summary normalizes information from multiple sources, and as a consequence, information in this document may materially change the coding, format and clinical context of patient data. In addition, data may be omitted in some cases. CLINICAL DECISIONS SHOULD BE BASED ON THE PRIMARY CLINICAL RECORDS. [facility] [employer] [facility]. provides no warranty or guarantee of the accuracy or completeness of information in this document.
--- NOTE | 2024-09-25 17:46 | STRESSREP ---
Stress Test Report Pharmacologic myocardial perfusion stress test. 59-year-old male with a history of chest pain Resting EKG demonstrates atrial fibrillation rhythm with a rate of 71 bpm. Resting blood pressure is 118/74 mmHg. 0.4 mg of regadenoson was infused per usual protocol followed by rapid intravenous saline flush injection. Continuous EKG monitoring was performed. The maximum heart rate was 97 bpm which was 60% of max impacted heart rate the maximum workload was 1 metabolic equivalent. At rest there were no ST or T wave changes noted to suggest ischemia and at peak infusion nonspecific ST changes were noted which did not meet the criteria for ischemia. No clinical angina is noted. The final blood pressure was 108/64 mmHg. Myocardial perfusion protocol. 14.7 mCi of technetium 99m sestamibi was injected at rest. 0.4 mg of regadenoson was infused per usual protocol. At peak infusion 44.6 mCi of technetium 99m sestamibi was injected stress images were obtained stress and rest images were reconstructed and compared in the short axis vertical long and horizontal long axis. Gated images were also obtained. Perfusion SPECT analysis: Review of the stress images demonstrate normal uptake of tracer noted in all areas of the myocardium. There is reduced uptake noted in the apex. This is present on the resting images as well with no improvement to suggest reversibility. The above is suggestive of a previous apical infarct. Gated SPECT analysis: The gated ejection fraction is 39%. Conclusion: Abnormal pharmacologic myocardial perfusion stress test. Reduced ejection fraction. Previous apical infarct
== END | disposition home or self-care (01) ==
LOC: CVS 06:24
PROVIDERS: PCP Family Medicine; Referring Provider Nurse Practitioner Gerontology; Visit Provider Nurse Practitioner Gerontology
DX: R06.02 Shortness of breath (principal); I48.91 Unspecified atrial fibrillation
CPT/HCPCS: 78452; 93017; 93306; A9500; A4216; J2785

== ENCOUNTER → 2024-09-25 | Outpatient (CLI) | payer MEDICARE, SELFPAY ==
[2024-09-25 18:04] LABS: PTHIN 242 pg/mL (11-61)
[2024-09-25 18:18] LABS: Anion Gap 11 (5-15); BUN 25 mg/dL (4-19); BUN/Creat Ratio 11.7 RATIO (10-20); Calcium,Total 9.7 mg/dL (7.6-11.0); Carbon Dioxide 23.7 mmol/L (21.0-32.0); Chloride 102 mmol/L (98-108); Glucose 99 mg/dL (70-99); Iron 115 ug/dL (65-175); Magnesium 1.9 mg/dL (1.5-2.2); Potassium 4.5 mmol/L (3.3-5.1)
[2024-09-25 18:32] LABS: Ferritin 590 ng/mL (37-417); Vitamin B12 490 pg/mL (180-914); Vitamin D,25 Hydroxy 16.2 ng/mL (30-100)
[2024-09-25 18:36] LABS: Hematocrit 41.6 % (40-54); Hemoglobin 14.2 g/dL (13.0-16.5); Mean Corp Hgb Conc 34.1 g/dL (32-36); Mean Corpuscular Volume 95.6 fL (80-94); Mean Platelet Vol. 11.0 fl (6.2-12.0); Platelet Count 189 K/mm3 (150-450); RBC Distribution Width CV 17.0 % (11.6-14.6); RBC Distribution Width SD 59.6 fl (35.1-43.9); Red Blood Count 4.35 M/mm3 (4.6-6.2); White Blood Count 6.1 K/mm3 (4.4-11.0)
== END | disposition home or self-care (01) ==
LOC: MTLAB 15:20
PROVIDERS: PCP Family Medicine; Referring Provider Family Medicine; Visit Provider Family Medicine
DX: N18.30 Chronic kidney disease, stage 3 unspecified (principal); M62.838 Other muscle spasm
CPT/HCPCS: 80048; 82306; 82607; 82728; 83540; 83735; 83970; 85027; 85652

== ENCOUNTER → 2024-10-02 | Outpatient (CLI) | payer MEDICARE, SELFPAY ==
[2024-10-02 16:00] LABS: Hematocrit 43.4 % (40-54); Hemoglobin 14.6 g/dL (13.0-16.5); Immature Granulocytes Count 0.020 X10^3/uL (0.0-0.0); Mean Corp Hgb Conc 33.6 g/dL (32-36); Mean Corpuscular Volume 96.9 fL (80-94); Mean Platelet Vol. 10.7 fl (6.2-12.0); NRBC Flagged by Analyzer 0.5 % (0-5); Platelet Count 213 K/mm3 (150-450); RBC Distribution Width CV 17.2 % (11.6-14.6); RBC Distribution Width SD 61.3 fl (35.1-43.9); Red Blood Count 4.48 M/mm3 (4.6-6.2); White Blood Count 5.7 K/mm3 (4.4-11.0)
[2024-10-02 16:28] LABS: Anion Gap 13 (5-15); BUN 28 mg/dL (4-19); BUN/Creat Ratio 10.6 RATIO (10-20); Calcium,Total 9.5 mg/dL (7.6-11.0); Carbon Dioxide 20.4 mmol/L (21.0-32.0); Chloride 102 mmol/L (98-108); Glucose 131 mg/dL (70-99); Potassium 4.5 mmol/L (3.3-5.1)
--- OUTSIDE RECORDS SUMMARY | 2024-10-02 23:14 | XMS RPT_ITS | CCD ---
Author Organization [facility] Care Team Providers Care Teamsite Developer Name Role Phone Unavailable, Family Physician Primary Care Physi terese Unavailable Jillian Maurer DO Primary Care Provider Daksha Turner MD Primary Care Provider Sumi HAHN, Sary Unavailable Unavailable Lalo Black MD Unavailable Rahul Knight RN Unavailable Madiha vailable [facility] [facility], Safia Unavailable Daksha Turner MD Primary Care Provider Sumi HAHN, Sary Unavailable Unavailable Lalo Black MD Unavailable Rahul Knight RN Unavailable Madiha vailable Brodman RP, Safia Unavailable Daksha Turner MD Primary Care Provider Lalo Black MD Unavailable Rahul Knight RN Unavailable Madiha vailable Haylee Wilburn MD Unavailable Alfredo Xavier MD Unavailable Haylee Wilburn MD Unavailable Unavailable Primary Care Provider Unavailabl Dr. Jose Ramon Rincon Primary Care Provider Dr. Speedy Bass Emergency Provider [phone] Dr. Mehrdad Villalpando Admit Provider Dr. Mehrdad [...] CLEMENT, Alfredo Sherwood Unavailable Daksha Turner Unavailable [phone] Unavailable, Family Physician Primary Care Un available Unavailable, Family Physician Consulting Un available Siri Harris Attending Unavailable Daksha Turner Unavailable Andre Mota Unavailable Unavailable SigourneyGerard lozarit Unavailable Aravind Hernandez Unavailable Unavailable Alyssa London Unavailable Nellie CLEMENT, Sayra Martinez Unavailable [phone] ORNSTEIN, KENNETH Referring Unavailable ROCCHIO, JILLIAN Primary [...] Unavailabl e MOUDGIL, LALO Attending Unavailable MOUDGIL, LALO Referring Unavailable MOUDGIL, LALO Referring Unavailable DAKSHA [...] Unavailable Johnny, Dr. Albright Primary Care Provider Dr. Kei Dunn Emergency Provider Dr. Dangelo [...] vailable Johnny, Dr. Albright Primary Care Provider Dr. Kei Dunn Emergency Provider [phone] Dr. Dangelo Camacho Admit Provider Dr. Dangelo Camacho Other Provider Dr. Carol Chiu Attending Provider Dr. Carol Chiu Other Provider Dr. Moises Gaona Attending Provider [phone] Moises Gaona Referring Provider [phone] Hoa Ma Attending Provider [phone] HAYLEE WILBURN Attending Unavailable GODFREY OHARA Referring Unavailable DAKSHA [...] Unavailabl e Dr. Kassy Banda Emergency Provider Dr. Alicia Dukes Admit Provider Dr. Alicia Dukes Other Provider Dr. Jesús Che Attending Provider Dr. Jesús Che Other Provider Dr. Jose Ramon Turner Referring Provider Dr. Dangelo Botello Attending Provider Dr. Livan Ennis Emergency Provider Tabitha, Dr. Estelita Prescott Admit Provider Tabitha, Dr. Estelita Prescott Other Provider Eriberto, Dr. Pau Harris Other Provider Johnny, Dr. Daksha Lugo Primary Care Madiha vailable Johnny, Dr. Daksha Lugo Referring Madiha vailable [place], Dr. Aravind Rodriguez Attending Unavailab le Johnny, Dr. Daksha Lugo Attending Madiha vailable Johnny, Dr. Daksha Lugo Primary Care Madiha vailajames Turner, Dr. Albright Primary Care Provider [...] Rahul Candelaria Unavailable Madiha dee Tello MD, [facility] N Unavailable Dr. Daksha Turner MD Primary Care Provider Dr. Daksha Turner MD Attending Provider Dr. Daksha Turner MD Referring Provider Dr. Isidra Chiu DO Attending Provider Dr. Isidra Chiu DO Referring Provider Dr. Daksha Turner MD Primary Care Provider Dr. Daksha Turner MD Attending Provider Johnny CLEMENT, Dr. Candelaria Referring Provider Ayan CLEMENT, Dr. Pierson Attending Provider Ayan CLEMENT, Dr. Pierson Referring Provider Johnny CLEMENT, Dr. Candelaria Primary Care Provider Khoa [employer]AIR [employer]ING [employer]SEMBLER-C, Gini Attending Provider Khoa CHAIR SPRING ASSEMBLER-C, Gini Referring Provider Jimenez CLEMENT, Dr. De Leon Attending Provider Khoa CHA[employer]ING ASSEMBLER-C, Gini Other Provider Ranney, Christopher Referring Unavailable Ranney, Christopher Primary Care Unavailable PraDangelo li Attending Unavailable Ranney, Christopher Primary Care Unavailable Gini Couch Attending Unavailable Ranney, Christopher Primary Care Unavailable Gini Couch Attending Unavailable Ranney, Christopher Primary Care Unavailable Ranney, Christopher Referring Unavailable Gini Couch Attending Unavailable Ranney, Christopher Primary Care Unavailable Ranney, Christopher Referring Unavailable Ranney, Daksha Attending Unavailable Ranney, Christopher Referring Unavailable Ranney, Christopher Primary Care Unavailable Ranney, Christpaer Attending Unavailable Ranney, Christopher Referring Unavailable Ranney, Christopher Primary Care Unavailable Ranney, Christopher Attending Unavailable Aram, Isidra Referring Unavailable Aram, Isidra Attending Unavailable Ranney, Christopher Primary Care Unavailable Ranney, Christopher Primary Care Unavailable Dangelo Botello Referring Unavailable PraDangelo li Attending Unavailable Ranney, Christopher Primary Care Unavailable Dangelo Botello Attending Unavailable PraDangelo li Referring Unavailable Ranney, Christopher Primary Care Unavailable Gini Couch Referring Unavailable Moises Gaona Attending Unavailable Gini Couch Consulting Unavailable Ranney, Christopher Primary Care Unavailable Ranney, Christopher Referring Unavailable Gini Couch Attending Unavailable Ranney, Christopher Primary Care Unavailable Ranney, Christopher Referring Unavailable Gini Couch Attending Unavailable Ranney, Christopher Primary Care Unavailable Moises Gaona Attending Unavailable Ranney, Christopher Referring Unavailable Ranney, Christopher Primary Care Unavailable Primo Alves Attending Unavailabl e Ranney, Christopher Primary Care Unavailable Ranney, Christopher Referring Unavailable Dangelo Botello Attending Unavailable Jlney, Christopher Primary Care Unavailable Dangelo Botello Referring Unavailable Praguillermo, Dangelo Attending Unavailable [facility] Unavailable Praguillermo, Dangelo Referring Unavailable Praguillermo, Dangelo Attending Unavailable Gini Couch Referring Unavailable Khoa, Gini Attending Unavailable [facility] Unavailable Khoa, Gini Referring Unavailable Ranney, Christopher Primary Care Unavailable Khoa, Gini Attending Unavailable Ranney, Christopher Primary Care Unavailable Ranney, Christopher Referring Unavailable Ranney, Christopher Attending Unavailable Ranney, Christopher Referring Unavailable Ranney, [facility] Unavailable Ranney, Christopher Attending Unavailable Ranney, Christopher Attending Unavailable Ranney, Christopher Primary Care Unavailable Ranney, Christopher Referring Unavailable Ranney, Christopher Primary Care Unavailable Ranney, Christopher Referring Unavailable Gini Couch Attending Unavailable Allergies Allergy Classification Reported Allergen(s) Allergy Type Date of Onset Reaction(s) Facility (20 sources) Aspirin; Translations: [Aspirin TABS] Drug Allergy 5 Hives, Intolerance [facility] (20 sources) Lisinopril; Translations: [Lisinopril TABS] Drug Allergy [address] [facility] (20 sources) Penicillins; Translations: [Penicillins] Allergy to substance [address] [facility] (20 sources) Shellfish; Translations: [shellfish derived] Allergy to substance [address] [facility] (20 sources) Shellfish; Translations: [SHELLFISH CONTAINING PRODUCTS] Drug Allergy 0 Anaphylaxis, [facility] (20 sources) cultivated mushroom extract; Translations: [MUSHROOM] Drug Allergy 2 [facility] (3 sources) Aluminum aspirin Drug Allergy 9 [facility] (3 sources) Shellfish-deriv ed Products; Translations: [Shellfish-deri angy Products] Allergy to drug (finding) [place]-Dnadqzl-Bk[place] 400 DO Work Phone: (1 source) Mushroom (edible) Unknown [facility] (1 source) Penicillin Drug Allergy Unknown [facility] (1 source) Shellfish Unknown [facility] (17 sources) guaiFENesin Drug Allergy 3 Bleeding [facility] (1 source) Aspirin Drug Allergy 5 [facility] (1 source) guaiFENesin Drug Allergy 5 [facility] (1 source) Lisinopril Drug Allergy 5 [facility] (1 source) Mushroom (edible) Drug allergy (disorder) 5 [facility] Medications Current Medications Medication Drug Class(es) Dates Sig (Normalized) Sig (Original) acetaminophen 500 mg oral tablet (20 sources) Start: 07-15-2021 take 2 tablets by mouth every six hours as needed acetaminophen (TYLENOL EXTRA STRENGTH) 500 mg tablet Take 2 tablets by mouth every 6 hours as needed for pain. 100 tablet 07/15/2021 Active Comment on above: Take 2 tablets by mo [facility] every 6 hours as needed for pain. [...] once daily. apixaban 5 mg oral tablet (6 sources) Factor Xa Inhibitor Start: 08-14-2024 take 1 tablet by mouth twice daily Apixaban (Eliquis) 5 mg tablet Active 5 mg PO TWICE A DAY 60 August 14, 2024 12:00am bumetanide 2 mg oral tablet (20 sources) Loop Diuretic Start: 10-02-2024 take 1 tablet by mouth once Bumetanide 2 mg tablet Active 2 mg PO ONCE October 02, 2024 3:00pm Start: 04-16-2022 End: 10-02-2024 take 1 tablet by mouth twice daily Bumetanide 2 mg tablet Discontinued 2 mg PO TWICE A DAY 180 3 September 28, 2022 3:39pm September 29, 2022 2:10pm cabozantinib 20 mg oral tablet (20 sources) Kinase Inhibitor Start: 08-09-2024 take 1 tablet by mouth once daily [...] pelvis Start: 11-19-2021 take 1 tablet by kellie [...] ) by mouth once daily. once daily. calcitriol 0.00431 mg oral capsule (1 source) Vitamin D3 Analog Start: 10-02-2024 take 1 capsule by mouth once daily Calcitriol 0.25 mcg capsule Active 0.25 ug PO daily October 02, 2024 12:00am carvedilol 12.5 mg oral tablet (20 sources) alpha-Adrenergic Bettye, beta-Adrenergic Bettye Start: 06-03-2023 End: 06-04-2024 take 1 tablet by mouth twice daily Carvedilol 12.5 mg tablet Active 12.5 mg PO TWICE A DAY 180 June 04, 2024 8:09am Start: 06-27-2022 End: 06-03-2023 Carvedilol 12.5 mg tablet Discontinued 18.75 mg PO TWICE A DAY 90 June 29, [...] 12.5 mg PO TWICE A DAY 180 3 May 27, 2022 11:08am June 27, 2022 [...] mg dose. Take 3 tablets by mo [facility] twice daily. once daily. cetirizine hydrochloride 5 mg oral tablet (19 sources) Histamine-1 Receptor Antagonist Start: 12-14-19 End: 07-16-19 take 2 tablets by mouth once daily cetirizine (ZYRTEC) 5 MG tablet Take 2 Tabs by mouth daily 60 Tab 0 12/14/2011 Active Comment on above: Take 10 mg by mouth. dapagliflozin 5 mg oral tablet (1 source) Sodium-Glucose Cotransporter 2 Inhibitor Start: 10-03-19 take 1 tablet by mouth once daily Dapagliflozin Propanediol (Farxiga) 5 mg tablet Active 5 mg PO daily October 02, 2024 12:00am enteric contrast (will be provided with radiology test) (6 sources) Start: 08-29-19 End: 08-29-19 enteric contrast (will be provided with radiology [...] sources) Anticholinergic, Corticosteroid, beta2-Adrenergic Agonist Start: 06-29-2022 Hbcxpfdsmwz-Idvoiotuh-U ilanter (Trelegy Ellipta) 100-62.5-25 mcg blister with [...] 29, 2022 11:13am Start: 05-22-2022 End: 06-29-2022 Bxhdpecqfcp-Plucwbyaf-Okdtpj er (Trelegy Ellipta) 100-62.5-25 mcg blister with device Discontinued 1 NMA INHALATION DAILY May 22, 2022 12:00am June 29, 2022 11:14am Start: 05-22-2022 End: 06-29-2022 Aztatoffism-Bzsthkerz-Xpmktf er (Trelegy Ellipta) 100-62.5-25 mcg blister with device Discontinued 1 INH INHALATION DAILY May 21, 2022 11:00pm June 29, 2022 10:14am Start: 05-22-2022 End: 06-29-2022 Qtbncisjbql-Eoybfodmb-Osgebx er (Trelegy Ellipta) 100-62.5-25 mcg blister with [...] A 100-62.5-25 mcg inhalation powder 10/31/2021 Active Handicap Placard (1 source) Start: 10-02-[address] Active 0 .Route .MEDSUPPLY 1 0 October 02, 2024 12:00am Debility Other malaise Debiltiy Exp: 10/13/2028 ibuprofen 800 mg oral tablet (20 sources) [...] 10 mL injection (DEFINITY) polyethylene glycol 3350 07359 mg powder for oral solution (16 sources) Osmotic Laxative Start: 02-06-2022 End: 02-12-2022 MiraLax oral powder for reconstitution ; 17 gram(s) orally once a day, As Needed for constipation Quantity: 119 Refills: 0 Ordered: 06-Feb-2022 ImaniClau Start: 06-Feb-2022 End: 12-Feb-2022 Generic Substitution Allowed Comments: Dilute this medication with liquid before administration.It is very important that you take or use this exactly as directed. Do not skip doses or discontinue unless directed by your doctor. Start: 02-06-2022 End: 04-09-2022 polyethylene glycol 3350 (NH RALAX, GLYCOLAX) 17 gram/dose powder Comment on [...] extended release Active 20 meq PO DAILY June 29, 2022 11:13am Start: 10-30-2019 End: 06-23-2021 take 1 tablet by mouth once daily potassium chloride (K-TAB) 10 mEq tablet Indications: Hypokalemia Take 1 tablet by mouth once daily. 90 tablet 3 10/30/2019 06/23/2021 Discontinued (Course of therapy completed) End: 07-22-2021 potassium chloride (KLOR-CON ) 20 mEq packet Potassium Chloride* ([id number]) 20 MEQ PACKET Active 20 MEQ PO 0 07/22/2021 Discontinued (Clinical Decision) Potassium Chlori de* ([id number]) 20 MEQ PACKET Active 20 MEQ PO Comment on above: Take 1 tablet by kellie once daily. Potassium Chloride* ([id number]) 20 MEQ PACKET Active 20 MEQ PO Semaglutide (7 sources) Start: 5 Semaglutide (Ozempic) 0.25 mg or 0.5 mg (2 mg/3 mL) pen injector Active 0.25 mg SC EVERY WEEK June 20, 2024 12:00am sertraline 50 mg oral tablet (1 source) Serotonin Reuptake Inhibitor Start: 5 take 1 tablet by mouth once daily Sertraline 50 mg tablet Active 50 mg PO daily October 02, 2024 12:00am 125 ml sodium chloride 9 mg/ml prefilled syringe (18 sources) Start: 2 End: 4 sodium chloride 0.9 % (flush) 10 mL (BD POSIFLUSH) tiZANidine 4 mg oral capsule (20 sources) Central alpha-2 Adrenergic Agonist Start: 5 take 1 capsule by mouth twice daily as needed Tizanidine 4 mg capsule Active 4 mg PO TWICE A DAY as needed October 02, 2024 12:00am Start: 07-25-2018 End: 08-06-2021 take 1 tablet by mouth every eight hours as needed tiZANidine (ZANAFLEX) 4 mg tablet Indications: Acute midline low back pain without sciatica Take 1 tablet by mouth every 8 hours as needed. 30 tablet 1 07/25/2018 08/06/2021 Discontinued Comment on above: Take 1 tablet by [facility] every 8 hours as needed. torsemide 20 mg oral tablet (20 sources) [...] on above: TAKE 2 TABLETS BY MO UT TO EQUAL 40 MG ONCE PER DAY Take 1 tablet by kellie once daily. Take 2 tablets by mo uth once daily. TAKE 2 TABLETS BY MOUTH [...] (Normalized) Sig (Original) Albuterol 90 mcg/actuation Aerosol (9 sources) Start: 12-07-2021 End: 06-29-2022 take 90 [...] tablet by mouth once daily Atenolol * ([id number] MG) 25 MG TABLET Discontinued 25 MG [...] hours. 60 tablet 03/25/2022 Active Start: 03-25-2022 End: 03-16-2022 take 1 tablet by mouth every twelve hours axitinib (INLYTA) 5 mg tablet Take 1 tablet (5 mg) by mouth every 12 hours. 60 tablet 11 03/25/2022 03/16/2022 Discontinued Start: 03-25-2022 take 1 [...] (5 mg) by mouth every 12 hours. cefdinir 300 mg oral capsule (5 sources) Cephalosporin Antibacterial Start: 01-29-2022 Cefdinir 300 MG Oral Capsule Quantity: 14 [...] End: 02-17-2022 clindamycin (CLEOCIN) 150 mg capsule cyclobenzaprine hydrochloride 10 mg oral tablet (20 sources) Muscle Relaxant Start: 12-07-2021 End: 10-02-2024 take 1 tablet by mouth three times daily as needed for muscle spasms Cyclobenzaprine 10 mg Tablet Discontinued 10 mg PO THREE TIMES A DAY as needed for Spasms December 07, 2021 12:00am October 02, 2024 2:56pm Start: 11-19-2021 Cyclobenzaprin e HCl - 10 MG Oral Tablet Quantity: 90 Refills: 0 Ordered: 19-Nov-2021 DO Start : 19-Nov-2021 Active Start: 03-26-2015 End: 12-04-2015 take 1 tablet by mouth three times daily as needed for muscle spasms Cyclobenzaprine HCl * ([id number] MG) 10 MG TABLET Discontinued 10 MG PO THREE TIMES DAILY NEEDED as needed for Muscle Spasm March 26, 2015 3:48pm December 04, 2015 4:06pm Comment on above: Take by mouth three times daily as needed for muscle spasm. Digoxin (1 source) Cardiac Glycoside End: 0.8 ml enoxaparin sodium 150 mg/ml prefilled syringe (20 sources) Low Molecular Weight Heparin Start: End: inject 120 mg by subcutaneous injection every twelve hours enoxaparin (LOVENOX) 120 mg/0.8 mL injection Inject 0.8 mL subcutaneously q 12 HR. 8 Syringe 1 09/26/2021 Active Comment on above: Inject 0.8 mL subcut aneously every 12 hours. Inject 0.8 mL subcut aneously q 12 HR. etodolac 400 mg oral tablet (17 sources) Nonsteroidal Anti-inflammatory Drug Start: End: take 1 tablet by mouth once daily as needed for pain etodolac (LODINE) 400 mg tablet Indications: Chronic bilateral low back pain without sciatica Take 1 tablet by mouth once daily as needed (Lower back pain). 90 tablet 1 10/10/2018 07/15/2021 Discontinued (Course of therapy completed) Comment on above: Take 1 tablet by kellie once daily as needed (Lower back pain). ferrous sulfate 325 mg oral tablet (20 sources) Start: End: take 1 tablet by mouth twice daily [...] on above: Take 1 tablet by kellie twice daily. TAKE 1 TABLET BY KELLIE [...] 7 days. Take 1 tablet by kellie th twice daily. Take 1 tablet by kellie th once daily. hydroCHLOROthiazide 25 mg oral tablet (1 source) Thiazide Diuretic End: 2015 take 1 tablet by mouth once daily Hydrochlorothiazide * ([id number] MG) 25 MG TABLET Discontinued 25 MG [...] Comment on above: Take 1 capsule by [facility] once daily. iv contrast (will be provided [...] Quantity: 0 Refills: 0 Ordered: 27-Jan-2022 Liliam Moreojn Generic Substitution Allowed Comment on above: Take 1 tablet by kellie th daily with dinner. daily at bedtime. naproxen 500 mg oral tablet (20 sources) Nonsteroidal Anti-inflammatory Drug Start: End: take 1 tablet by mouth once daily as needed for pain Naproxen 500 MG tablet Discontinued 500 mg PO DAILY NEEDED as needed for Pain Or Fever June 04, 2019 12:00am December 09, 2021 7:58am nystatin [id number] unt/ml oral suspension (20 sources) Polyene Antifungal Start: End: Nystatin 100,000 unit/mL suspension Discontinued [id number] U PO DAILY 60 0 June 29, 2022 12:00am August 14, 2024 1:19pm administer 1/2 of dose in each side of the mouth Start: 05-20-2022 End: 05-25-2022 Nystatin 100,000 unit/mL gianluca pension Discontinued [id number] U PO DAILY 35 7 0 May [...] mg PO DAILY as needed for gerd May 20, 2022 11:18am May 25, 2022 9:35am Comment on above: Take 1 tablet by kellie once daily. predniSONE 20 mg oral tablet [...] 11:00pm Start: 09-27-2021 take 0.5 tablet by [facility] once daily spironolactone (ALDACTONE) 25 mg tablet [...] Take 1 tablet by kellie once daily. Take 0.5 tablets by mouth once daily. traMADol hydrochloride 50 mg oral tablet (1 [...] tablet (20 sources) Vitamin K Antagonist Start: End: warfarin (COUMADIN) 2 mg tablet Start: [...] Tablet Di scontinued 8 mg PO DAILY 30 June 29, 2022 11:13am August 14, 2024 [...] Onset: 2 09-02-2021 Chronic Chronic kidney disease (20 sources) Chronic kidney disease; Translations: [Chronic kidney disease, unspecified] 06-28-2022 Chronic Chronic kidney disease (2 sources) Chronic kidney disease; Translations: [Chronic kidney disease, stage 3 unspecified] Onset: 5 Chronic obstructive pulmonary disease and bronchiectasis (20 sources) Acute exacerbation of chronic obstructive airways disease; Translations: [Chronic obstructive pulmonary disease with (acute) exacerbation] Onset: 2 01-28-2022 Chronic Coagulation and hemorrhagic disorders (18 sources) Blood coagulation disorder; Translations: [Hemorrhagic disorder [...] Coronary atherosclerosis; Translations: [Atherosclerotic heart disease of [place] coronary artery without angina pectoris] Onset: 2 [...] 5 02-06-2022 Episodic Other aftercare (1 source) skilled nursing (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 of 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; Translations: [skilled nursing (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 of 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] Onset: 2 Episodic Other aftercare (1 source) Other packaging coordinator (current) drug therapy; Translations: [Other packaging coordinator (current) drug therapy] Onset: 2 Episodic Other circulatory disease (1 source) Low blood pressure; Translations: [Hypotension, unspecified] 10-02-2024 Episodic Other connective tissue disease (1 source) [...] Chronic Other diseases of kidney and ureters (17 sources) Chronic renal insufficiency; Translations: [Disorder of [...] Onset: 2 Episodic Other lower respiratory disease (7 sources) Shortness of breath; Translations: [Shortness of breath] Onset: 2 12-17-2022 Episodic Other lower respiratory disease (8 sources) Dyspnea, unspecified; Translations: [Other respiratory abnormalities] 05-18-2022 Episodic Other lower respiratory disease (17 sources) Hemoptysis; Translations: [Hemoptysis] 12-15-2022 Episodic Other lower respiratory disease (17 sources) Respiratory insufficiency; Translations: [Other abnormalities of [...] conditions (not mental disorders or infectious disease) (18 sources) Imaging of thorax abnormal; Translations: [Abnormal [...] Respiratory failure; insufficiency; arrest (adult) (2 sources) Wkbds-zk-uwnejlt respiratory failure 02-07-2022 Chronic Respiratory failure; insufficiency; [...] ERROR Unclassified (2 sources) RIGHT LAPAROSCOPIC NEPHRECTOMY (58589) 02-03-2022 Comment on above: RIGHT LAPAROSCOPIC N EPHRECTOMY (81673) Unclassified (2 sources) Body mass index (BMI) [...] Translations: [Left lower quadrant abdominal pain] Onset: 08-17-2021 Episodic Diabetes mellitus without complication (20 sources) [...] Test Name Value Interpretation Reference Range Facility Anion gap in Serum or Plasma Ordered By: Daksha Turner on 09-25-2024 Anion gap [Moles/Vol] 11 mmol/L 07-20 [facility] BUN/creatinine ratioOrdered By: Daksha Turner on 09-25-2024 Urea nitrogen/Creatinine [Mass ratio] 11.7 mg/mg 12-25 [facility] Basic Metabolic Profile (BMP )on 09-25-2024 BUN/CRE 11.7 RATIO Normal 12-25 [facility] Comment on above: Order Comment: Order Date: 09/25/24Order Info: [id number] - BMPOrder Info: [id number] - MGOrder Info: [id number] - FEOrder Info: [id number] - MARTIN Performed By: #### L 509.1000, L503.6150, L100.0500, L500.2500, L501.5200, L101.9900, L503.6550 ####[facility] [address] [place], [address] Calcium [Mass/Vol] 9.7 mg/dL Normal 7.6-11.0 [facility] Comment on above: Order Comment: Order Date: 09/25/24Order Info: [id number]- - BMPOrder Info: [id number] - MGOrder Info: [id number] - FEOrder Info: [id number] - MARTIN Performed By: #### L 509.1000, L503.6150, L100.0500, L500.2500, L501.5200, L101.9900, L503.6550 ####[facility] [address] [place], [address] Chloride [Moles/Vol] 102 mmol/L Normal 98-108 [facility] Comment on above: Order Comment: Order Date: 09/25/24Order Info: [id number] - BMPOrder Info: [id number] - MGOrder Info: [id number] - FEOrder Info: [id number]- - MARTIN Performed By: #### L 509.1000, L503.6150, L100.0500, L500.2500, L501.5200, L101.9900, L503.6550 ####[facility] [address] [place], [address] CO2 [Moles/Vol] 23.7 mmol/L Normal 21.0-32.0 [facility] Comment on above: Order Comment: Order Date: 09/25/24Order Info: [id number] - BMPOrder Info: [id number] - MGOrder Info: [id number] - FEOrder Info: [id number] - MARTIN Performed By: #### L 509.1000, L503.6150, L100.0500, L500.2500, L501.5200, L101.9900, L503.6550 ####[facility] [address] [place], [address] Creatinine [Mass/Vol] 2.11 mg/dL High 0.70-1.20 [facility] Comment on above: Order Comment: Order Date: 09/25/24Order Info: [id number] - BMPOrder Info: [id number] - MGOrder Info: [id number] - FEOrder Info: [id number] - MARTIN Performed By: #### L 509.1000, L503.6150, L100.0500, L500.2500, L501.5200, L101.9900, L503.6550 ####[facility] [address] [place], [address] GAP 11 Normal 5-15 [facility] Comment on above: Order Comment: Order Date: 09/25/24Order Info: [id number] - BMPOrder Info: [id number] - MGOrder Info: [id number] - FEOrder Info: [id number] - MARTIN Performed By: #### L 509.1000, L503.6150, L100.0500, L500.2500, L501.5200, L101.9900, L503.6550 ####[facility] [address] [place], [place], [id number] GFR/1.73 sq M.predicted among non-blacks MDRD (S/P/Bld) [Vol rate/Area] 35 mL/min/{1.73_m2} Low >60 [facility] Comment on above: Order Comment: Order Date: 09/25/24Order Info: 666-03 - BMPOrder Info: - MGOrder Info: [id number] - FEOrder Info: [id number] - MARTIN Result Comment: mL/m in/1.73m2 CKD-EPI Creatinine Equation (2020) Performed By: #### L 509.1000, L503.6150, L100.0500, L500.2500, L501.5200, L101.9900, L503.6550 ####[facility] [address] [place], [address] Glucose [Mass/Vol] 99 mg/dL Normal 70-99 [facility] Comment on above: Order Comment: Order Date: 09/25/24Order Info: 666- - BMPOrder Info: [id number] - MGOrder Info: 2497-06 - FEOrder Info: 2275-4 - MARTIN Performed By: #### L 509.1000, L503.6150, L100.0500, L500.2500, L501.5200, L101.9900, L503.6550 ####[facility] [address] [place], [address] Potassium [Moles/Vol] 4.5 mmol/L Normal 3.3-5.1 [facility] Comment on above: Order Comment: Order Date: 09/25/24Order Info: 666- - BMPOrder Info: [id number] - MGOrder Info: 2497-06 - FEOrder Info: 2275- - MARTIN Performed By: #### L 509.1000, L503.6150, L100.0500, L500.2500, L501.5200, L101.9900, L503.6550 ####[facility] [address] [place], [address] Sodium [Moles/Vol] 136 mmol/L Normal 133-145 [facility] Comment on above: Order Comment: Order Date: 09/25/24Order Info: 666- - BMPOrder Info: [id number] - MGOrder Info: 2497-06 - FEOrder Info: 2275- - MARTIN Performed By: #### L 509.1000, L503.6150, L100.0500, L500.2500, L501.5200, L101.9900, L503.6550 ####[facility] [address] [place], [address] Urea nitrogen [Mass/Vol] 25 mg/dL High 4-19 [facility] Comment on above: Order Comment: Order Date: 09/25/24Order Info: 666- - BMPOrder Info: [id number] - MGOrder Info: 2497-06 - FEOrder Info: 2275-4 - MARTIN Performed By: #### L 509.1000, L503.6150, L100.0500, L500.2500, L501.5200, L101.9900, L503.6550 ####[facility] [address] [place], [place], [address] CBC-Complete Blood Cnt No Di ffon 09-25-2024 Erythrocyte distribution width (RBC) [Ratio] 17.0 % High 11.6-14.6 [facility] Comment on above: Order Comment: Order Date: 09/25/24Order Info: [id number] - CBCOrder Info: [id number] - SED Performed By: #### L 509.1000, L503.6150, L100.0500, L500.2500, L501.5200, L101.9900, L503.6550 ####[facility] [address] [place], [address] Hematocrit (Bld) [Volume fraction] 41.6 % Normal 40-54 [facility] Comment on above: Order Comment: Order Date: 09/25/24Order Info: [id number] - CBCOrder Info: 98643-2 - SED Performed By: #### L 509.1000, L503.6150, L100.0500, L500.2500, L501.5200, L101.9900, L503.6550 ####[facility] [address] [place], [place], [address] Hemoglobin (Bld) [Mass/Vol] 14.2 g/dL Normal 13.0-16.5 [facility] Comment on above: Order Comment: Order Date: 09/25/24Order Info: [id number] - CBCOrder Info: [id number] - SED Performed By: #### L 509.1000, L503.6150, L100.0500, L500.2500, L501.5200, L101.9900, L503.6550 ####[facility] [address] [place], [address] MCH (RBC) [Entitic mass] 32.6 pg High 27.0-32.0 [facility] Comment on above: Order Comment: Order Date: 09/25/24Order Info: [id number] - CBCOrder Info: 97597-4 - SED Performed By: #### L 509.1000, L503.6150, L100.0500, L500.2500, L501.5200, L101.9900, L503.6550 ####[facility] [address] [place], [address] MCHC (RBC) [Mass/Vol] 34.1 g/dL Normal 32-36 [facility] Comment on above: Order Comment: Order Date: 09/25/24Order Info: [id number] - CBCOrder Info: 61259-9 - SED Performed By: #### L 509.1000, L503.6150, L100.0500, L500.2500, L501.5200, L101.9900, L503.6550 ####[facility] [address] [place], [place], [phone] MCV (RBC) [Entitic vol] 95.6 fL High 80-94 [facility] Comment on above: Order Comment: Order Date: 09/25/24Order Info: [id number] - CBCOrder Info: 82597-2 - SED Performed By: #### L 509.1000, L503.6150, L100.0500, L500.2500, L501.5200, L101.9900, L503.6550 ####[facility] [address] [place], [place], [phone] Platelet mean volume (Bld) [Entitic vol] 11.0 fL Normal 6.2-12.0 [facility] Comment on above: Order Comment: Order Date: 09/25/24Order Info: [id number] - CBCOrder Info: 89209-7 - SED Performed By: #### L 509.1000, L503.6150, L100.0500, L500.2500, L501.5200, L101.9900, L503.6550 ####[facility] [address] [place], [address] Platelets (Bld) [#/Vol] 189 10*3/uL Normal 150-450 [facility] Comment on above: Order Comment: Order Date: 09/25/24Order Info: [id number] - CBCOrder Info: 92350-0 - SED Performed By: #### L 509.1000, L503.6150, L100.0500, L500.2500, L501.5200, L101.9900, L503.6550 ####[facility] [address] [place], [address] RBC (Bld) [#/Vol] 4.35 10*6/uL Low 4.6-6.2 [facility] Comment on above: Order Comment: Order Date: 09/25/24Order Info: [id number] - CBCOrder Info: 65109-9 - SED Performed By: #### L 509.1000, L503.6150, L100.0500, L500.2500, L501.5200, L101.9900, L503.6550 ####[facility] [address] [place], [address] RDW SD 59.6 fl High 35.1-43.9 [facility] Comment on above: Order Comment: Order Date: 09/25/24Order Info: [id number] - CBCOrder Info: 38093-1 - SED Performed By: #### L 509.1000, L503.6150, L100.0500, L500.2500, L501.5200, L101.9900, L503.6550 ####[facility] [address] [place], [address] WBC (Bld) [#/Vol] 6.1 10*3/uL Normal 4.4-11.0 [facility] Comment on above: Order Comment: Order Date: 09/25/24Order Info: [id number] - CBCOrder Info: 72466-0 - SED Performed By: #### L 509.1000, L503.6150, L100.0500, L500.2500, L501.5200, L101.9900, L503.6550 ####[facility] [address] [place], [address] Carbon dioxide, total [Moles /volume] in Central venous bloodOrdered By: Daksha Turner on 09-25-2024 CO2 [Moles/Vol] 23.7 mmol/L 21.0-32.0 [facility] Cardiovascular stress test r eportOrdered By: Moises Gaona on 09-25-2024 Study report [facility] [address] [place] [address] MR#: [id number] Acct: [id number] Name: YEFRI YANEZ Rep #: [id number] : 1965 59 From: Moises Gaona MD Primary Care: Dr. Daksha Turner MD Status: REG CLI Referring Dr: Gini Couch NP [employer] Sex: M AA Stress Test Report Pharmacologic myocardial perfusion stress test. 59-year-old male with a history of chest pain Resting EKG demonstrates atrial fibrillation rhythm with a rate of 71 bpm. Resting blood pressure is 118/74 mmHg. 0.4 mg of regadenoson was infused per usual protocol followed by rapid intravenous saline flush injection. ContinuousEKG monitoring was performed. The maximum heart rate was 97 bpm which was 60% of max impacted heart rate the maximum workload was 1 metabolic equivalent. At rest there were no ST or T wave changes noted to suggest ischemia and at peak infusion nonspecific ST changes were noted which did not meet the criteria for ischemia. No clinical angina is noted. The final blood pressure was 108/64 mmHg. Myocardial perfusion protocol. 14.7 mCi of technetium 99m sestamibi was injected at rest. 0.4 mg of regadenoson was infused per usual protocol. At peak infusion 44.6 mCi of technetium 99m sestamibi was injected stress images were obtained stress and restimages were reconstructed and compared in the short axis vertical long and horizontal long axis. Gated images were also obtained. Perfusion SPECT analysis: Review of the stress images demonstrate normal uptake of tracer noted in all areas of the myocardium. There is reduced uptake noted in the apex. This is present on the resting images as well with no improvement to suggest reversibility. The above is suggestive of a previous apical infarct. Gated SPECT analysis: The gated ejection fraction is 39%. Conclusion: Abnormal pharmacologic myocardial perfusion stress test. Reduced ejection fraction. Previous apical infarct 09/25/24 1750 Date _ Moises Gaona MD CC: LILIANC Gini Couch; Dr. Daksha Turner MD ~ Date Dictated: 09/25/241745 Date Transcribed: 09/25/241745 Route Delivery Manager: CO Signed [facility] Work Phone: Chloride assayOrdered By: Sejal uTrner on 09-25-2024 Chloride [Moles/Vol] 102 mmol/L 98-108 [facility] Echo Completeon 09-25-2024 Echo Complete [facility] [address] [place] [address] Echo Complete 09/24/242019 MR#: [id number] Acct: [id number] Name: YEFRI YANEZ Rep #: [id number] : 1965 59 From: Moises Gaona MD Attending Dr: JARVIS Valenzuela Status: REG C LI Ordering Dr: Gini Couch NP [employer] Date: 09/25/24 Location: [facility] Sex: M AA Admitted: Reason For Study Reason For Study: AFIB Procedure This was a 2D Doppler, Color Flow transthoracic echocardiogram. Exam performed in department. Left Ventricle Normal LV size. Moderate concentric left ventricular hypertrophy. The left ventricular ejection fraction is 50 %. There is borderline global hypokinesis of the left ventricle. Right Ventricle Normal RV size. Normal systolic function. Atria The left atrium is moderately enlarged. The right atrium is mildly enlarged. Mitral Valve Normal mitral valve. Mild-Moderate (1-2+) eccentric mitral valve insufficiency. Tricuspid Valve Normal tricuspid valve. Mild (1+) tricuspid valve insufficiency. Pulmonary artery systolic pressure is 32 mmHg. Aortic Valve Trisinus/trileaflet aortic valve. Moderate (2+) eccentric aortic valve insufficiency. Pulmonic Valve Normal pulmonic valve. Great Vessels Mildly dilated aortic root. The pulmonary artery is normal size. Inferior vena cava collapse with respiration. Pericardium/Pleural No pericardial effusion. MMode/2D Measurements Calculations LVIDd: 5.6 cm IVSd: 1.5 cm Ao root diam: 3.8 cm LVIDs: 4.8 cm LVPWd: 1.5 cm FS: 15.1 % LAV(MOD-bp): 107.8 ml LVAd ap4: 40.2 cm2 SV(MOD-sp4): 71.5 ml LAV(MOD-bp) Indexed: 46.0 ml/m2 LVLd ap4: 8.5 cm SI(MOD-sp4): 30.5 ml/m2 LAV(MOD-sp2): 119.2 ml EDV(MOD-sp4): 154.2 ml LAV(MOD-sp4): 99.6 ml EDV(sp4-el): 162.1 ml LVAs ap4: 27.3 cm2 LVLs ap4: 7.5 cm ESV(MOD-sp4): 82.7 ml ESV(sp4-el): 84.5 ml EF(MOD-sp4): 46.4 % EF(sp4-el): 47.8 % SV(sp4-el): 77.5 ml LA A4 area: 28.2 cm2 LA dimension(2D): 5.2 cm RA A4 area: 21.7 cm2 Doppler Measurements Calculations MV E max greyson: 85.3 cm/sec MV P1/2t max greyson: 89.2 cm/sec Ao V2 max: 127.4 cm/sec Ao max P.5 mmHg Ao V2 mean: 98.4 cm/sec Ao mean P.2 mmHg Ao V2 VTI: 22.9 cm PA V2 max: 67.2 cm/sec TR max greyson: 266.4 cm/sec PA V2 mean: 50.9 cm/sec TR max P.4 mmHg ECHO/Echo Complete Interpretation Summary Normal LV size. Moderate concentric left ventricular hypertrophy. The left ventricular ejection fraction is 50 %. There is borderline global hypokinesis of the left ventricle. Mild-Moderate (1-2+) eccentric mitral valve insufficiency. Mild (1+) tricuspid valve insufficiency. Moderate (2+) eccentric aortic valve insufficiency. ___ Ordering Physician: Gini Couch Referring Physician: Gini Couch Performed By: Unique Herzog RCS 09/25/241728 Date Moises Gaona MD CC: [employer] Gini Couch; Dr. Daksha Turner MD Date Dictated: 09/24/242019 Date Transcribed: 09/25/241728 Route Delivery Manager: Signed Normal [facility] Echocardiogram study reportO rdered By: Moises Gaona on 09-25-2024 Study report [facility] Cardi[facility] Services [address] [place] [address] Echo Complete 09/24/242019 MR#: [id number] Acct: [id number] Name: YEFRI YANEZ Rep #:[id number] : 1965 59 From: Moises Scott Attending Dr: Gini Couch, JRAVIS S tatus: REG CLI Ordering Dr: Gini Couch NP, NP-Tangela Syd e: 09/25/24 Location: [facility] Sex: M AA Admitted: Reason For Study Reason For Study: AFIB Procedure This was a 2D Doppler, Color Flow transthoracic echocardiogram. Exam performed in department. Left Ventricle Normal LV size. Moderate concentric left ventricular hypertrophy. The left ventricular ejection fraction is 50 %. There is borderline global hypokinesis of the left ventricle. Right Ventricle Normal RV size. Normal systolic function. Atria The left atrium is moderately enlarged. The right atrium is mildly enlarged. Mitral Valve Normal mitral valve. Mild-Moderate (1-2+) eccentric mitral valve insufficiency. Tricuspid Valve Normal tricuspid valve. Mild (1+) tricuspid valve insufficiency. Pulmonary artery systolic pressure is 32 mmHg. Aortic Valve Trisinus/trileaflet aortic valve. Moderate (2+) eccentric aortic valve insufficiency. Pulmonic Valve Normal pulmonic valve. Great Vessels Mildly dilated aortic root. The pulmonary artery is normal size. Inferior vena cava collapse with respiration. Pericardium/Pleural No pericardial effusion. MMode/2D Measurements & Calculations LVIDd: 5.6 cm IVSd: 1.5 cm Ao root diam: 3.8 cm LVIDs: 4.8 cm LVPWd: 1.5 cm FS: 15.1 % LAV(MOD-bp): 107.8 ml LVAd ap4: 40.2 cm2 SV(MOD-sp4): 71.5 ml LAV(MOD-bp) Indexed: 46.0 ml/m2 LVLd ap4: 8.5 cm SI(MOD-sp4): 30.5 ml/m2 LAV(MOD-sp2): 119.2 ml EDV(MOD-sp4): 154.2 ml LAV(MOD-sp4): 99.6 ml EDV(sp4-el): 162.1 ml LVAs ap4: 27.3 cm2 LVLs ap4: 7.5 cm ESV(MOD-sp4): 82.7 ml ESV(sp4-el): 84.5 ml EF(MOD-sp4): 46.4 % EF(sp4-el): 47.8 % SV(sp4-el): 77.5 ml LA A4 area: 28.2 cm2 LA dimension(2D): 5.2 cm RA A4 area: 21.7 cm2 Doppler Measurements & Calculations MV E max greyson: 85.3 cm/sec MV P1/2t max greyson: 89.2 cm/sec Ao V2 max: 127.4 cm/sec Ao max P.5 mmHg Ao V2 mean: 98.4 cm/sec Ao mean P.2 mmHg Ao V2 VTI: 22.9 cm PA V2 max: 67.2 cm/sec TR max greyson: 266.4 cm/sec PA V2 mean: 50.9 cm/sec TR max P.4 mmHg ECHO/Echo Complete Interpretation Summary Normal LV size. Moderate concentric left ventricular hypertrophy. The left ventricular ejection fraction is 50 %. There is borderline global hypokinesis of the left ventricle. Mild-Moderate (1-2+) eccentric mitral valve insufficiency. Mild (1+) tricuspid valve insufficiency. Moderate (2+) eccentric aortic valve insufficiency. ___ Ordering Physician: Gini Couch Referring Physician: Gini Couch Performed By: Unique Herzog RCS 09/25/24 1729 Date _ Moises Gaona MD CC: JARVIS Couch; Dr. Daksha Turner MD ~ Date Dictated: 09/24/242019 Date Transcribed: 09/25/241728 Route Delivery Manager: Signed [facility] Work Phone: Erythrocyte Sed Rateon 09-25 SED RATE 30 mm/hr High 0-20 [facility] Comment on above: Order Comment: Order Date: 09/25/24Order Info: [id number] - CBCOrder Info: [id number] - SED Performed By: #### L 509.1000, L503.6150, L100.0500, L500.2500, L501.5200, L101.9900, L503.6550 ####[facility] [address] [place], [address] Erythrocyte distribution wid th ratioOrdered By: Daksha Turner on 09-25-2024 Erythrocyte distribution width (RBC) [Ratio] 17.0 % High 11.6-14.6 [facility] Erythrocyte distribution wid th standard deviationOrdered By: Daksha Turner on 09-25-2024 Erythrocyte distribution width (RBC) [Ratio] 59.6 fl High 35.1-43.9 [facility] Erythrocyte sedimentation ra teOrdered By: Daksha Turner on 09-25-2024 ESR (Bld) [Velocity] 30 mm/h High 0-20 [facility] Ferritinon 09-25-2024 Ferritin [Mass/Vol] 590 ng/mL High 37-417 [facility] Comment on above: Order Comment: Order Date: 09/25/24Order Info: [id number] - BMPOrder Info: [id number] - MGOrder Info: [id number] - FEOrder Info: [id number] - MARTIN Performed By: #### L 509.1000, L503.6150, L100.0500, L500.2500, L501.5200, L101.9900, L503.6550 ####[facility] [address] [place], [place], [address] Glomerular filtration rate ( GFR) estimation/1.73 sq m using serum, plasma, or whole bOrdered By: Daksha Turner on 09-25-2024 GFR/1.73 sq M.predicted among non-blacks MDRD (S/P/Bld) [Vol rate/Area] 35 mL/min/{1.73_m2} Low >60 [facility] Comment on above: mL/min/1.73m2 CKD-EP I Creatinine Equation (2020) Hematocrit Auto (Bld) [Volum e fraction]Ordered By: Daksha Turner on 09-25-2024 Hematocrit (Bld) [Volume fraction] 41.6 % 40-54 [facility] Hemoglobin measurementOrdere d By: Daksha Turner on 09-25-2024 Hemoglobin (Bld) [Mass/Vol] 14.2 g/dL 13.0-16.5 [facility] Ironon 09-25-2024 Iron [Mass/Vol] 115 ug/dL Normal 65-175 [facility] Comment on above: Order Comment: Order Date: 09/25/24Order Info: 06- - BMPOrder Info: - MGOrder Info: [id number] - FEOrder Info: 2276- - MARTIN Performed By: #### L 509.1000, L503.6150, L100.0500, L500.2500, L501.5200, L101.9900, L503.6550 ####[facility] [address] [place], [place], [address] Iron measurement (mass/mass) Ordered By: Daksha Turner on 09-25-2024 Iron (Unsp spec) [Mass/Mass] 115 ug/dL 65-175 [facility] MCV (mean corpuscular volume ) determinationOrdered By: Daksha Turner on 09-25-2024 MCV (RBC) [Entitic vol] 95.6 fL High 80-94 [facility] Magnesiumon 09-25-2024 Magnesium [Mass/Vol] 1.9 mg/dL Normal 1.5-2.2 [facility] Comment on above: Order Comment: Order Date: 09/25/24Order Info: 06- - BMPOrder Info: - MGOrder Info: [id number] - FEOrder Info: [id number] - MARTIN Performed By: #### L 509.1000, L503.6150, L100.0500, L500.2500, L501.5200, L101.9900, L503.6550 ####[facility] [address] [place], [address] Magnesium measurement (mass/ volume)Ordered By: Daksha Turner on 09-25-2024 Magnesium (Unsp spec) [Mass/Vol] 1.9 mg/dL 1.5-2.2 [facility] Mean corpuscular hemoglobin (MCH) determinationOrdered By: Daksha Turner on 09-25-2024 MCH (RBC) [Entitic mass] 32.6 pg High 27.0-32.0 [facility] Mean corpuscular hemoglobin concentration (MCHC) determinationOrdered By: Daksha Turner on 09-25-2024 MCHC (RBC) [Mass/Vol] 34.1 g/dL 32-36 [facility] Mean platelet volume determi nationOrdered By: Daksha Turner on 09-25-2024 Platelet mean volume (Bld) [Entitic vol] 11.0 fL 6.2-12.0 [facility] PTHINon 09-25-2024 PTH 242 pg/mL High 11-61 [facility] Comment on above: Order Comment: Order Date: 09/25/24Order Info: [id number] - PTHIN Performed By: #### L 509.1000, L503.6150, L100.0500, L500.2500, L501.5200, L101.9900, L503.6550 ####[facility] [address] [place], [address] Platelet countOrdered By: Sejal Turner on 09-25-2024 Platelets (Bld) [#/Vol] 189 10*3/uL 150-450 [facility] Potassium measurement (mass/ volume)Ordered By: Daksha Turner on 09-25-2024 Potassium (Unsp spec) [Mass/Vol] 4.5 mmol/L 3.3-5.1 [facility] RBC Auto (Bld) [#/Vol]Ordere d By: Daksha Turner on 09-25-2024 RBC (Bld) [#/Vol] 4.35 10*6/uL Low 4.6-6.2 [facility] Serum creatinine measurement (mass/volume)Ordered By: Daksha Turner on 09-25-2024 Creatinine [Mass/Vol] 2.11 mg/dL High 0.70-1.20 [facility] Serum glucose measurement (m ass/volume)Ordered By: Daksha Turner on 09-25-2024 Glucose [Mass/Vol] 99 mg/dL 70-99 [facility] Serum or plasma calcium cory urement (mass/volume)Ordered By: Daksha Turner on 09-25-2024 Calcium [Mass/Vol] 9.7 mg/dL 7.6-11.0 [facility] Serum or plasma ferritin meliton surement (mass/volume)Ordered By: Daksha Turner on 09-25-2024 Ferritin [Mass/Vol] 590 ng/mL High 37-417 [facility] Serum or plasma urea nitroge n measurement (mass/volume)Ordered By: Daksha Turner on 09-25-2024 Urea nitrogen [Mass/Vol] 25 mg/dL High 4-19 [facility] Sodium levelOrdered By: Shawna Turner on 09-25-2024 Sodium [Moles/Vol] 136 mmol/L 133-145 [facility] Stress Reporton 09-25-2024 Stress Report [facility] [address] [place] [address] MR#: [id number] Acct: [id number] Name: YEFRI YANEZ Rep #: [id number] : 1965 59 From: Moises Gaona MD Primary Care: Dr. Daksha Turner MD Status: REG CLI Referring Dr: Gini Couch [employer] Sex: M A A Stress Test Report Pharmacologic myocardial perfusion stress test. 59-year-old male with a history of chest pain Resting EKG demonstrates atrial fibrillation rhythm with a rate of 71 bpm. Resting blood pressure is 118/74 mmHg. 0.4 mg of regadenoson was infused per usual protocol followed by rapid intravenous saline flush injection. Continuous EKG monitoring was performed. The maximum heart rate was 97 bpm which was 60% of max impacted heart rate the maximum workload was 1 metabolic equivalent. At rest there were no ST or T wave changes noted to suggest ischemia and at peak infusion nonspecific ST changes were noted which did not meet the criteria for ischemia. No clinical angina is noted. The final blood pressure was 108/64 mmHg. Myocardial perfusion protocol. 14.7 mCi of technetium 99m sestamibi was injected at rest. 0.4 mg of regadenoson was infused per usual protocol. At peak infusion 44.6 mCi of technetium 99m sestamibi was injected stress images were obtained stress and rest images were reconstructed and compared in the short axis vertical long and horizontal long axis. Gated images were also obtained. Perfusion SPECT analysis: Review of the stress images demonstrate normal uptake of tracer noted in all areas of the myocardium. There is reduced uptake noted in the apex. This is present on the resting images as well with no improvement to suggest reversibility. The above is suggestive of a previous apical infarct. Gated SPECT analysis: The gated ejection fraction is 39%. Conclusion: Abnormal pharmacologic myocardial perfusion stress test. Reduced ejection fraction. Previous apical infarct 09/25/241749 Date Moises Gaona MD CC: JARVIS Couch; Dr. Daksha Turner MD Date Dictated: 09/25/241745 Date Transcribed: 09/25/241745 Route Delivery Manager: [place] Signed Normal [facility] Vitamin B12on 09-25-2024 Cobalamin (Vitamin B12) [Mass/Vol] 490 pg/mL Normal 180-914 [facility] Comment on above: Order Comment: Order Date: 09/25/24 Order Info: [id number] - BMP Order Info: [id number] - MG Order Info: 2498-4 - FE Order Info: 2276-4 - MARTIN Performed By: #### L 503.0106, L506.1001 #### [facility] [address] [place], [place], [id number] Vitamin B12 ser/plasOrdered By: Daksha Turner on 09-25-2024 Cobalamin (Vitamin B12) [Mass/Vol] 490 pg/mL 180-914 [facility] Vitamin D,25 Hydroxyon 09-25 Vitamin D 25-OH 16.2 ng/mL Low 30-100 [facility] Comment on above: Order Comment: Order Date: 09/25/24Order Info: [id number] - BMPOrder Info: [id number] - MGOrder Info: [id number] - FEOrder Info: [id number] - MARTIN Result Comment: Constanza min D Status Deficiency: <20 ng/mL (50nmol/L) Insufficiency: 20-30 ng/mL (50-75 nmol/L) Sufficiency: 30-100 ng/mL (75-250 nmol/L) Toxicity: >100 ng/mL (>250 nmol/L) Performed By: #### L 503.0106, L506.1001 ####[facility] [address] [place], [place], [address] White blood cell (WBC) count Ordered By: Daksha Turner on 09-25-2024 WBC (Bld) [#/Vol] 6.1 10*3/uL 4.4-11.0 [facility] Absolute lymphocyte countOrd ered By: Gini Couch on 08-14-2024 Lymphocytes Auto (Unsp spec) [#/Vol] 1.02 10*3/uL 0.83-4.51 [facility] Absolute neutrophil countOrd ered By: Gini Couch on 08-14-2024 Neutrophils (Bld) [#/Vol] 3.6 10*3/uL 2.0-7.7 [facility] Anion gap in Serum or Plasma Ordered By: Gini Couch on 08-14-2024 Anion gap [Moles/Vol] 10 mmol/L 5-15 [facility] Automated lymphocyte count a s percentage of total leukocytesOrdered By: Gini Couch on 08-14-2024 Lymphocytes/100 WBC Auto (Unsp spec) 18.9 % Low 19-41 [facility] BUN/creatinine ratioOrdered By: Gini Couch on 08-14-2024 Urea nitrogen/Creatinine [Mass ratio] 9.5 mg/mg Low 10-20 [facility] Basic Metabolic Profile (BMP )on 08-14-2024 BUN/CRE 9.5 RATIO Low 10-20 [facility] Comment on above: Performed By: #### L 500.2500, L501.9520, L501.5200, L100.0100 ####[facility] [address] [place], [address] Calcium [Mass/Vol] 9.5 mg/dL Normal 7.6-11.0 [facility] Comment on above: Performed By: #### L 500.2500, L501.9520, L501.5200, L100.0100 ####[facility] [address] [place], [address] Chloride [Moles/Vol] 102 mmol/L Normal 98-108 [facility] Comment on above: Performed By: #### L 500.2500, L501.9520, L501.5200, L100.0100 ####[facility] [address] [place], [address] CO2 [Moles/Vol] 26.2 mmol/L Normal 21.0-32.0 [facility] Comment on above: Performed By: #### L 500.2500, L501.9520, L501.5200, L100.0100 ####[facility] [address] [place], [address] Creatinine [Mass/Vol] 2.22 mg/dL High 0.70-1.20 [facility] Comment on above: Performed By: #### L 500.2500, L501.9520, L501.5200, L100.0100 ####[facility] [address], [address] GAP 10 Normal 5-15 [facility] Comment on above: Performed By: #### L 500.2500, L501.9520, L501.5200, L100.0100 ####[facility] [address] [place], [address] GFR/1.73 sq M.predicted among non-blacks MDRD (S/P/Bld) [Vol rate/Area] 33 mL/min/{1.73_m2} Low >60 [facility] Comment on above: Result Comment: mL/m in/1.73m2 CKD-EPI Creatinine Equation (2020) Performed By: #### L 500.2500, L501.9520, L501.5200, L100.0100 ####[facility] [address] [place], [address] Glucose [Mass/Vol] 101 mg/dL High 70-99 [facility] Comment on above: Performed By: #### L 500.2500, L501.9520, L501.5200, L100.0100 ####[facility] [address] [place], [address] Potassium [Moles/Vol] 4.7 mmol/L Normal 3.3-5.1 [facility] Comment on above: Performed By: #### L 500.2500, L501.9520, L501.5200, L100.0100 ####[facility] [address] [place], [address] Sodium [Moles/Vol] 138 mmol/L Normal 133-145 [facility] Comment on above: Performed By: #### L 500.2500, L501.9520, L501.5200, L100.0100 ####[facility] [address] [place], [address] Urea nitrogen [Mass/Vol] 21 mg/dL High 4-19 [facility] Comment on above: Performed By: #### L 500.2500, L501.9520, L501.5200, L100.0100 ####[facility] [address] [place], [address] Basophil percentageOrdered B y: Gini Couch on 08-14-2024 Basophils/100 WBC (Bld) 0.4 % 0-1 [facility] CBC W/Diff, Automatedon Absolute Lymph 1.02 X10 3/uL Normal 0.83-4.51 [facility] Comment on above: Performed By: #### L 500.2500, L501.9520, L501.5200, L100.0100 ####[facility] [address] [place], [address] Absolute Neut 3.6 X10 3/uL Normal 2.0-7.7 [facility] Comment on above: Performed By: #### L 500.2500, L501.9520, L501.5200, L100.0100 ####[facility] [address] [place], [address] Basophils/100 WBC (Bld) 0.4 % Normal 0-1 [facility] Comment on above: Performed By: #### L 500.2500, L501.9520, L501.5200, L100.0100 ####[facility] [address] [place], [address] Eosinophils/100 WBC (Bld) 2.2 % Normal 0-5 [facility] Comment on above: Performed By: #### L 500.2500, L501.9520, L501.5200, L100.0100 ####[facility] [address] [place], [address] Erythrocyte distribution width (RBC) [Ratio] 16.6 % High 11.6-14.6 [facility] Comment on above: Performed By: #### L 500.2500, L501.9520, L501.5200, L100.0100 ####[facility] [address] [place], [address] Hematocrit (Bld) [Volume fraction] 41.7 % Normal 40-54 [facility] Comment on above: Performed By: #### L 500.2500, L501.9520, L501.5200, L100.0100 ####[facility] [address] [place], [address] Hemoglobin (Bld) [Mass/Vol] 13.9 g/dL Normal 13.0-16.5 [facility] Comment on above: Performed By: #### L 500.2500, L501.9520, L501.5200, L100.0100 ####[facility] [address] [place], [address] IG% 0.200 Normal 0.0-0.9 [facility] Comment on above: Result Comment: IG% - Immature Granulocytes (promyelocytes, myelocytes and metamyelocytes) > 1% indicates that a LEFT SHIFT is Present. Performed By: #### L 500.2500, L501.9520, L501.5200, L100.0100 ####[facility] [address] [place], [address] Lymphocytes/100 WBC (Bld) 18.9 % Low 19-41 [facility] Comment on above: Performed By: #### L 500.2500, L501.9520, L501.5200, L100.0100 ####[facility] [address] [place], [address] MCH (RBC) [Entitic mass] 32.5 pg High 27.0-32.0 [facility] Comment on above: Performed By: #### L 500.2500, L501.9520, L501.5200, L100.0100 ####[facility] [address] [place], [address] MCHC (RBC) [Mass/Vol] 33.3 g/dL Normal 32-36 [facility] Comment on above: Performed By: #### L 500.2500, L501.9520, L501.5200, L100.0100 ####[facility] [address] [place], [address] MCV (RBC) [Entitic vol] 97.4 fL High 80-94 [facility] Comment on above: Performed By: #### L 500.2500, L501.9520, L501.5200, L100.0100 ####[facility] [address] [place], [address] Monocytes/100 WBC (Bld) 11.3 % High 0-10 [facility] Comment on above: Performed By: #### L 500.2500, L501.9520, L501.5200, L100.0100 ####[facility] [address] [place], [address] Neutrophils/100 WBC (Bld) 67.0 % Normal 47-70 [facility] Comment on above: Performed By: #### L 500.2500, L501.9520, L501.5200, L100.0100 ####[facility] [address] [place], [address] Nucleated RBC (Bld) [#/Vol] 0 10*3/uL Normal 0-5 [facility] Comment on above: Performed By: #### L 500.2500, L501.9520, L501.5200, L100.0100 ####[facility] [address] [place], [address] Platelet mean volume (Bld) [Entitic vol] 10.4 fL Normal 6.2-12.0 [facility] Comment on above: Performed By: #### L 500.2500, L501.9520, L501.5200, L100.0100 ####[facility] [address] [place], [address] Platelets (Bld) [#/Vol] 209 10*3/uL Normal 150-450 [facility] Comment on above: Performed By: #### L 500.2500, L501.9520, L501.5200, L100.0100 ####[facility] [address] [place], [address] RBC (Bld) [#/Vol] 4.28 10*6/uL Low 4.6-6.2 [facility] Comment on above: Performed By: #### L 500.2500, L501.9520, L501.5200, L100.0100 ####[facility] [address] [place], [address] RDW SD 59.1 fl High 35.1-43.9 [facility] Comment on above: Performed By: #### L 500.2500, L501.9520, L501.5200, L100.0100 ####[facility] [address] [place], [address] WBC (Bld) [#/Vol] 5.4 10*3/uL Normal 4.4-11.0 [facility] Comment on above: Performed By: #### L 500.2500, L501.9520, L501.5200, L100.0100 ####[facility] [address] [place], [address] Carbon dioxide, total [Moles /volume] in Central venous bloodOrdered By: Gini Couch on 08-14-2024 CO2 [Moles/Vol] 26.2 mmol/L 21.0-32.0 [facility] Cardiology Visit Reporton Cardiology Visit Report [facility] [address] [place] [address] OFFICE VISIT Date of Service: 08/14/24 MR#: [id number] Acct: [id number] Name: YEFRI YANEZ Rep #: [id number] : 1965 Provider: JARVIS campos Age/Sex: 59/M Location: [facility] Status: Signed HPI HPI History of Present [...] the care of the oncologist here at [facility]. He had presented to the hospital [...] he had a DC cardioversion at the [facility] in September 2021. He had previously been seeing a biscuit machine operator in the [facility] system. During this admission to the hospital in May 2022 his medications were optimized he was diuresed his creatinine actually improved and he was subsequently discharged to find a biscuit machine operator. 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 Normal [facility] Chloride assayOrdered By: Eduardo Couch on 08-14-2024 Chloride [Moles/Vol] 102 mmol/L 98-108 [facility] Eosinophil percentageOrdered By: Gini Couch on 08-14-2024 Eosinophils/100 WBC (Bld) 2.2 % 0-5 [facility] Erythrocyte distribution wid th ratioOrdered By: Gini Couch on 08-14-2024 Erythrocyte distribution width (RBC) [Ratio] 16.6 % High 11.6-14.6 [facility] Erythrocyte distribution wid th standard deviationOrdered By: Gini Couch on 08-14-2024 Erythrocyte distribution width (RBC) [Ratio] 59.1 fl High 35.1-43.9 [facility] Glomerular filtration rate ( GFR) estimation/1.73 sq m using serum, plasma, or whole bOrdered By: Gini Couch on 08-14-2024 GFR/1.73 sq M.predicted among non-blacks MDRD (S/P/Bld) [Vol rate/Area] 33 mL/min/{1.73_m2} Low >60 [facility] Comment on above: mL/min/1.73m2 CKD-EP I Creatinine Equation (2020) Hematocrit Auto (Bld) [Volum e fraction]Ordered By: Gini Couch on 08-14-2024 Hematocrit (Bld) [Volume fraction] 41.7 % 40-54 [facility] Hemoglobin measurementOrdere d By: Gini Couch on 08-14-2024 Hemoglobin (Bld) [Mass/Vol] 13.9 g/dL 13.0-16.5 [facility] Immature granulocytes/100 WB C Auto (Bld)Ordered By: Gini Couch on 08-14-2024 Immature granulocytes/100 WBC (Bld) 0.200 % 0.0-0.9 [facility] Comment on above: IG% - Immature Granu locytes (promyelocytes, myelocytes and metamyelocytes) > 1% indicates that a LEFT SHIFT is Present. MCV (mean corpuscular volume ) determinationOrdered By: Gini Couch on 08-14-2024 MCV (RBC) [Entitic vol] 97.4 fL High 80-94 [facility] Magnesiumon 08-14-2024 Magnesium [Mass/Vol] 2.3 mg/dL High 1.5-2.2 [facility] Comment on above: Performed By: #### L 500.2500, L501.9520, L501.5200, L100.0100 ####[facility] [address] [place], [address] Magnesium measurement (mass/ volume)Ordered By: Gini Couch on 08-14-2024 Magnesium (Unsp spec) [Mass/Vol] 2.3 mg/dL High 1.5-2.2 [facility] Mean corpuscular hemoglobin (MCH) determinationOrdered By: Gini Couch on 08-14-2024 MCH (RBC) [Entitic mass] 32.5 pg High 27.0-32.0 [facility] Mean corpuscular hemoglobin concentration (MCHC) determinationOrdered By: Gini Couch on 08-14-2024 MCHC (RBC) [Mass/Vol] 33.3 g/dL 32-36 [facility] Mean platelet volume determi nationOrdered By: Gini Couch on 08-14-2024 Platelet mean volume (Bld) [Entitic vol] 10.4 fL 6.2-12.0 [facility] Monocyte percentageOrdered B y: Gini Couch on 08-14-2024 Monocytes/100 WBC (Bld) 11.3 % High 0-10 [facility] Neutrophil percentageOrdered By: Gini Couch on 08-14-2024 Neutrophils/100 WBC (Bld) 67.0 % 47-70 [facility] Nucleated red blood cell per centageOrdered By: Gini Couch on 08-14-2024 Nucleated RBC/100 WBC (Bld) [Ratio] 0 % 0-5 [facility] Platelet countOrdered By: Eduardo Couch on 08-14-2024 Platelets (Bld) [#/Vol] 209 10*3/uL 150-450 [facility] Potassium measurement (mass/ volume)Ordered By: Gini Couch on 08-14-2024 Potassium (Unsp spec) [Mass/Vol] 4.7 mmol/L 3.3-5.1 [facility] RBC Auto (Bld) [#/Vol]Ordere d By: Gini Couch on 08-14-2024 RBC (Bld) [#/Vol] 4.28 10*6/uL Low 4.6-6.2 [facility] Serum creatinine measurement (mass/volume)Ordered By: Gini Couch on 08-14-2024 Creatinine [Mass/Vol] 2.22 mg/dL High 0.70-1.20 [facility] Serum glucose measurement (m ass/volume)Ordered By: Gini Couch on 08-14-2024 Glucose [Mass/Vol] 101 mg/dL High 70-99 [facility] Serum or plasma calcium cory urement (mass/volume)Ordered By: Gini Couch on 08-14-2024 Calcium [Mass/Vol] 9.5 mg/dL 7.6-11.0 [facility] Serum or plasma urea nitroge n measurement (mass/volume)Ordered By: Gini Couch on 08-14-2024 Urea nitrogen [Mass/Vol] 21 mg/dL High 4-19 [facility] Sodium levelOrdered By: Mercedes Couch on 08-14-2024 Sodium [Moles/Vol] 138 mmol/L 133-145 [facility] TSH DL <= 0.005 mIU/L QnOrde red By: Gini Couch on 08-14-2024 TSH Qn 1.940 uIU/mL 0.300-4.20 0 [facility] Thyroid Stim Hormone (TSH)on 08-14-2024 TSH 1.940 uIU/mL Normal 0.300-4.20 0 [facility] Comment on above: Performed By: #### L 500.2500, L501.9520, L501.5200, L100.0100 ####[facility] [address] [place], [place], [id number] White blood cell (WBC) count Ordered By: Gini Couch on 08-14-2024 WBC (Bld) [#/Vol] 5.4 10*3/uL 4.4-11.0 [facility] Absolute lymphocyte countOrd ered By: Dangelo Botello on 06-20-2024 Lymphocytes Auto (Unsp spec) [#/Vol] 1.11 10*3/uL 0.83-4.51 [facility] Absolute neutrophil countOrd ered By: Dangelo Botello on 06-20-2024 Neutrophils (Bld) [#/Vol] 4.3 10*3/uL 2.0-7.7 [facility] Anion gap in Serum or Plasma Ordered By: Dangelo Botello on 06-20-2024 Anion gap [Moles/Vol] 10 mmol/L 07-20 [facility] Automated lymphocyte count a s percentage of total leukocytesOrdered By: Dangelo Botello on 06-20-2024 Lymphocytes/100 WBC Auto (Unsp spec) 18.8 % Low 19-41 [facility] BUN/creatinine ratioOrdered By: [facility] on 06-20-2024 Urea nitrogen/Creatinine [Mass ratio] 8.0 mg/mg Low 10-20 [facility] Basophil percentageOrdered B y: Dangelo Botello on 06-20-2024 Basophils/100 WBC (Bld) 0.3 % 0-1 [facility] Bilirubin, totalOrdered By: Dangelo Botello on 06-20-2024 Bilirubin [Mass/Vol] 0.39 mg/dL 0.00-1.30 [facility] CBC W/Diff, Automatedon 06-06 Absolute Lymph 1.11 X10 3/uL Normal 0.83-4.51 [facility] Comment on above: Performed By: #### L 504.2610, L500.4050, L100.0100 ####[facility] [address] [place], [address] Absolute Neut 4.3 X10 3/uL Normal 2.0-7.7 [facility] Comment on above: Performed By: #### L 504.2610, L500.4050, L100.0100 ####[facility] [address] [place], [address] Basophils/100 WBC (Bld) 0.3 % Normal 0-1 [facility] Comment on above: Performed By: #### L 504.2610, L500.4050, L100.0100 ####[facility] [address] [place], [address] Eosinophils/100 WBC (Bld) 0.5 % Normal 0-5 [facility] Comment on above: Performed By: #### L 504.2610, L500.4050, L100.0100 ####[facility] [address] [place], [address] Erythrocyte distribution width (RBC) [Ratio] 17.2 % High 11.6-14.6 [facility] Comment on above: Performed By: #### L 504.2610, L500.4050, L100.0100 ####[facility] [address] [place], [address] Hematocrit (Bld) [Volume fraction] 41.0 % Normal 40-54 [facility] Comment on above: Performed By: #### L 504.2610, L500.4050, L100.0100 ####[facility] [address] [place], [address] Hemoglobin (Bld) [Mass/Vol] 13.8 g/dL Normal 13.0-16.5 [facility] Comment on above: Performed By: #### L 504.2610, L500.4050, L100.0100 ####[facility] [address] [place], [address] IG% 1.400 High 0.0-0.9 [facility] Comment on above: Result Comment: IG% - Immature Granulocytes (promyelocytes, myelocytes and metamyelocytes) > 1% indicates that a LEFT SHIFT is Present. Performed By: #### L 504.2610, L500.4050, L100.0100 ####[facility] [address] [place], [address] Lymphocytes/100 WBC (Bld) 18.8 % Low 19-41 [facility] Comment on above: Performed By: #### L 504.2610, L500.4050, L100.0100 ####[facility] [address] [place], [address] MCH (RBC) [Entitic mass] 33.3 pg High 27.0-32.0 [facility] Comment on above: Performed By: #### L 504.2610, L500.4050, L100.0100 ####[facility] [address] [place], [address] MCHC (RBC) [Mass/Vol] 33.7 g/dL Normal 32-36 [facility] Comment on above: Performed By: #### L 504.2610, L500.4050, L100.0100 ####[facility] [address] [place], [address] MCV (RBC) [Entitic vol] 99.0 fL High 80-94 [facility] Comment on above: Performed By: #### L 504.2610, L500.4050, L100.0100 ####[facility] [address] [place], [address] Monocytes/100 WBC (Bld) 6.9 % Normal 0-10 [facility] Comment on above: Performed By: #### L 504.2610, L500.4050, L100.0100 ####[facility] [address] [place], [address] Neutrophils/100 WBC (Bld) 72.1 % High 47-70 [facility] Comment on above: Performed By: #### L 504.2610, L500.4050, L100.0100 ####[facility] [address] [place], [address] Nucleated RBC (Bld) [#/Vol] 0 10*3/uL Normal 0-5 [facility] Comment on above: Performed By: #### L 504.2610, L500.4050, L100.0100 ####[facility] [address] [place], [address] Platelet mean volume (Bld) [Entitic vol] 10.8 fL Normal 6.2-12.0 [facility] Comment on above: Performed By: #### L 504.2610, L500.4050, L100.0100 ####[facility] [address] [place], [address] Platelets (Bld) [#/Vol] 233 10*3/uL Normal 150-450 [facility] Comment on above: Performed By: #### L 504.2610, L500.4050, L100.0100 ####[facility] [address] [place], [address] RBC (Bld) [#/Vol] 4.14 10*6/uL Low 4.6-6.2 [facility] Comment on above: Performed By: #### L 504.2610, L500.4050, L100.0100 ####[facility] [address] [place], [address] RDW SD 62.4 fl High 35.1-43.9 [facility] Comment on above: Performed By: #### L 504.2610, L500.4050, L100.0100 ####[facility] [address] [place], [address] WBC (Bld) [#/Vol] 5.9 10*3/uL Normal 4.4-11.0 [facility] Comment on above: Performed By: #### L 504.2610, L500.4050, L100.0100 ####[facility] [address] [place], [address] Carbon dioxide, total [Moles /volume] in Central venous bloodOrdered By: Dangelo Botello on 06-20-2024 CO2 [Moles/Vol] 26.0 mmol/L 21.0-32.0 [facility] Chloride assayOrdered By: Raeann Botello on 06-20-2024 Chloride [Moles/Vol] 100 mmol/L 98-108 [facility] Comprehensive Metabolic Prof ilon 06-20-2024 Albumin [Mass/Vol] 4.0 g/dL Normal 3.4-4.8 [facility] Comment on above: Performed By: #### L 504.2610, L500.4050, L100.0100 ####[facility] [address] [place], [address] Albumin/Globulin [Mass ratio] 1.4 {ratio} Normal 0.9-2.4 [facility] Comment on above: Performed By: #### L 504.2610, L500.4050, L100.0100 ####[facility] [address] [place], [address] ALK PHOS 47 U/L Normal 40-129 [facility] Comment on above: Performed By: #### L 504.2610, L500.4050, L100.0100 ####[facility] [address] [place], [address] ALT [Catalytic activity/Vol] 47 U/L Normal <=46 [facility] Comment on above: Performed By: #### L 504.2610, L500.4050, L100.0100 ####[facility] [address] [place], [address] AST [Catalytic activity/Vol] 37 U/L Normal <=37 [facility] Comment on above: Performed By: #### L 504.2610, L500.4050, L100.0100 ####[facility] [address] [place], [address] Bilirubin [Mass/Vol] 0.39 mg/dL Normal 0.00-1.30 [facility] Comment on above: Performed By: #### L 504.2610, L500.4050, L100.0100 ####[facility] [address] [place], [address] BUN/CRE 8.0 RATIO Low 10-20 [facility] Comment on above: Performed By: #### L 504.2610, L500.4050, L100.0100 ####[facility] [address] [place], [address] Calcium [Mass/Vol] 9.7 mg/dL Normal 7.6-11.0 [facility] Comment on above: Performed By: #### L 504.2610, L500.4050, L100.0100 ####[facility] [address] [place], [address] Chloride [Moles/Vol] 100 mmol/L Normal 98-108 [facility] Comment on above: Performed By: #### L 504.2610, L500.4050, L100.0100 ####[facility] [address] [place], [address] CO2 [Moles/Vol] 26.0 mmol/L Normal 21.0-32.0 [facility] Comment on above: Performed By: #### L 504.2610, L500.4050, L100.0100 ####[facility] [address] [place], [address] Creatinine [Mass/Vol] 1.89 mg/dL High 0.70-1.20 [facility] Comment on above: Performed By: #### L 504.2610, L500.4050, L100.0100 ####[facility] [address] [place], [address] GAP 10 Normal 5-15 [facility] Comment on above: Performed By: #### L 504.2610, L500.4050, L100.0100 ####[facility] [address] [place], [address] GFR/1.73 sq M.predicted among non-blacks MDRD (S/P/Bld) [Vol rate/Area] 40 mL/min/{1.73_m2} Low >60 [facility] Comment on above: Result Comment: mL/m in/1.73m2 CKD-EPI Creatinine Equation (2020) Performed By: #### L 504.2610, L500.4050, L100.0100 ####[facility] [address] [place], [address] Globulin (S) [Mass/Vol] 2.8 g/dL Normal 2.2-4.2 [facility] Comment on above: Performed By: #### L 504.2610, L500.4050, L100.0100 ####[facility] [address] [place], [address] Glucose [Mass/Vol] 97 mg/dL Normal 70-99 [facility] Comment on above: Performed By: #### L 504.2610, L500.4050, L100.0100 ####[facility] [address] [place], [address] Potassium [Moles/Vol] 4.5 mmol/L Normal 3.3-5.1 [facility] Comment on above: Performed By: #### L 504.2610, L500.4050, L100.0100 ####[facility] [address] [place], [address] Sodium [Moles/Vol] 136 mmol/L Normal 133-145 [facility] Comment on above: Performed By: #### L 504.2610, L500.4050, L100.0100 ####[facility] [address] [place], [address] T PROT 6.7 g/dL Normal 5.9-8.4 [facility] [facility] Comment on above: Performed By: #### L 504.2610, L500.4050, L100.0100 ####[facility] [address] [place], [address] Urea nitrogen [Mass/Vol] 15 mg/dL Normal 4-19 [facility] Comment on above: Performed By: #### L 504.2610, L500.4050, L100.0100 ####[facility] [address] [place], [address] Eosinophil percentageOrdered By: Dangelo Botello on 06-20-2024 Eosinophils/100 WBC (Bld) 0.5 % 0-5 [facility] Erythrocyte distribution wid th (RBC) [Ratio]Ordered By: Dangelo Botello on 06-20-2024 Erythrocyte distribution width (RBC) [Entitic vol] 62.4 fL High 35.1-43.9 [facility] Erythrocyte distribution wid th ratioOrdered By: [facility] on 06-[facility]-2024 Erythrocyte distribution width (RBC) [Ratio] 17.2 % High 11.6-14.6 [facility] Erythrocyte distribution wid th standard deviationOrdered By: [facility] on 06-20-2024 Erythrocyte distribution width (RBC) [Ratio] 62.4 fl High 35.1-43.9 [facility] GFR/1.73 sq M.predicted martin g non-blacks MDRD (S/P/Bld) [Vol rate/Area]Ordered By: Dangelo Botello on 06-20-2024 Estimated GFR (MDRD) Non-Af Amer 40 Low >60 [facility] Comment on above: mL/min/1.73m2 CKD-EP I Creatinine Equation (2020) Glomerular filtration rate ( GFR) estimation/1.73 sq m using serum, plasma, or whole bOrdered By: Dangelo Botello on 06-20-2024 GFR/1.73 sq M.predicted among non-blacks MDRD (S/P/Bld) [Vol rate/Area] 40 mL/min/{1.73_m2} Low >60 [facility] Comment on above: mL/min/1.73m2 CKD-EP I Creatinine Equation (2020) Hematocrit Auto (Bld) [Volum e fraction]Ordered By: Dangelo Botello on 06-20-2024 Hematocrit (Bld) [Volume fraction] 41.0 % 40-54 [facility] Hemoglobin measurementOrdere d By: Dangelo Botello on 06-20-2024 Hemoglobin (Bld) [Mass/Vol] 13.8 g/dL 13.0-16.5 [facility] Immature granulocytes/100 WB C Auto (Bld)Ordered By: Dangelo Botello on 06-20-2024 Immature granulocytes/100 WBC (Bld) 1.400 % High 0.0-0.9 [facility] Comment on above: IG% - Immature Granu locytes (promyelocytes, myelocytes and metamyelocytes) > 1% indicates that a LEFT SHIFT is Present. LDHon 06-20-2024 LDH 249 U/L High 87-241 [facility] Comment on above: Order Comment: 1 Performed By: #### L 504.2610, L500.4050, L100.0100 ####[facility] [address] [place], [address] Laboratory - Chemistry and C hemistry - challengeOrdered By: Dangelo Botello on 06-20-2024 AST [Catalytic activity/Vol] 37 U/L <38 [facility] Lactate dehydrogenase (LDH) measurementOrdered By: Dangelo Botello on 06-20-2024 LDH [Catalytic activity/Vol] 249 U/L High 87-241 [facility] Lymphocytes Auto (Unsp spec) [#/Vol]Ordered By: Dangelo Botello on 06-20-2024 Lymphocytes (Bld) [#/Vol] 1.11 10*3/uL 0.83-4.51 [facility] Lymphocytes/100 WBC Auto (Un sp spec)Ordered By: Dangelo Botello on 06-20-2024 Lymphocytes/100 WBC (Bld) 18.8 % Low 19-41 [facility] MCV (mean corpuscular volume ) determinationOrdered By: Dangelo Botello on 06-20-2024 MCV (RBC) [Entitic vol] 99.0 fL High 80-94 [facility] Mean corpuscular hemoglobin (MCH) determinationOrdered By: Dangelo Botello on 06-20-2024 MCH (RBC) [Entitic mass] 33.3 pg High 27.0-32.0 [facility] Mean corpuscular hemoglobin concentration (MCHC) determinationOrdered By: Dangelo Botello on 06-20-2024 MCHC (RBC) [Mass/Vol] 33.7 g/dL 32-36 [facility] Mean platelet volume determi nationOrdered By: Dangelo Botello on 06-20-2024 Platelet mean volume (Bld) [Entitic vol] 10.8 fL 6.2-12.0 [facility] Monocyte percentageOrdered B y: Dangelo Botello on 06-20-2024 Monocytes/100 WBC (Bld) 6.9 % 0-10 [facility] Neutrophil percentageOrdered By: [facility] on 06-20-2024 Neutrophils/100 WBC (Bld) 72.1 % High 47-70 [facility] Nucleated red blood cell per centageOrdered By: Sibley Ayan on 06-20-2024 Nucleated RBC/100 WBC (Bld) [Ratio] 0 % 0-5 [facility] Oncology Visit Reporton 06-06 Oncology Visit Report [facility] [address] [place] [address] OFFICE VISIT Date of Service: 06/20/24 1334 MR#: [id number] Acct: [id number] Name: YEFRI YANEZ Rep #: [id number] : 1965 From: Dangelo Botello MD Age/Sex: 59/M Location: [facility] Status: Signed HPI Subjective Date of Service [...] for follow up after CT. Feeling well [facility] Medical History Abnormal chest x-ray Warfarin-induced [...] Rx spiron (more content not included)... Normal [facility] Platelet countOrdered By: Raeann Botello on 06-20-2024 Platelets (Bld) [#/Vol] 233 10*3/uL 150-450 [facility] Potassium (Unsp spec) [Mass/ Vol]Ordered By: Dangelo Botello on 06-20-2024 Potassium [Moles/Vol] 4.5 mmol/L 3.3-5.1 [facility] Potassium measurement (mass/ volume)Ordered By: Dangelo Botello on 06-20-2024 Potassium (Unsp spec) [Mass/Vol] 4.5 mmol/L 3.3-5.1 [facility] RBC Auto (Bld) [#/Vol]Ordere d By: Dangelo Botello on 06-20-2024 RBC (Bld) [#/Vol] 4.14 10*6/uL Low 4.6-6.2 [facility] Serum creatinine measurement (mass/volume)Ordered By: Dangelo Botello on 06-20-2024 Creatinine [Mass/Vol] 1.89 mg/dL High 0.70-1.20 [facility] Serum globulin measurementOr dered By: Dangelo Botello on 06-20-2024 Globulin (S) [Mass/Vol] 2.8 g/dL 2.2-4.2 [facility] Serum glucose measurement (m ass/volume)Ordered By: Dangelo Botello on 06-20-2024 Glucose [Mass/Vol] 97 mg/dL 70-99 [facility] Serum or plasma alanine stafford otransferase (ALT) measurementOrdered By: Dangelo Botello on 06-20-2024 ALT [Catalytic activity/Vol] 47 U/L <47 [facility] Serum or plasma albumin cory urement (mass/volume)Ordered By: Dangelo Botello on 06-20-2024 Albumin [Mass/Vol] 4.0 g/dL 3.4-4.8 [facility] Serum or plasma albumin/glob ulin mass ratioOrdered By: Dangelo Botello on 06-20-2024 Albumin/Globulin [Mass ratio] 1.4 {ratio} 0.9-2.4 [facility] Serum or plasma alkaline damaso sphatase measurementOrdered By: Dangelo Botello on 06-20-2024 ALP [Catalytic activity/Vol] 47 U/L 40-129 [facility] Serum or plasma calcium cory urement (mass/volume)Ordered By: Dangelo Ayan on 06-20-2024 Calcium [Mass/Vol] 9.7 mg/dL 7.6-11.0 [facility] Serum or plasma urea nitroge n measurement (mass/volume)Ordered By: Dangelo Ayan on 06-20-2024 Urea nitrogen [Mass/Vol] 15 mg/dL 4-19 [facility] Sodium levelOrdered By: Bruno Botello on 06-20-2024 Sodium [Moles/Vol] 136 mmol/L 133-145 [facility] Total proteinOrdered By: Jose Botello on 06-20-2024 Protein [Mass/Vol] 6.7 g/dL 5.9-8.4 [facility] White blood cell (WBC) count Ordered By: Dangelo Ayan on 06-20-2024 WBC (Bld) [#/Vol] 5.9 10*3/uL 4.4-11.0 [facility] CREATININE FINGERSTICKon CREATININE WB < 1.0 Normal 0.70-1.30 [facility] Comment on above: Performed By: #### L 9100.0200 ####[facility] [address] [place], [place], [address] EGFR WB > 60.0000 Normal >60 [facility] Comment on above: Performed By: #### L 9100.0200 ####[facility] [address] [place], [address] CT Chest, Abd, Pel w/Contras ton 06-13-2024 CT Chest, Abd, Pel w/Contrast [facility] [address] [place] [address] CT Chest, Abd, Pel w/Contrast MR#: [id number] Acct: [id number] Name: YEFRI YANEZ Rep #: [id number] : 1965 M 59 From: Carla Garcia MD PCP: Dr. Daksha Turner MD Status: REG CLI Study: CT Chest, Abd, Pel w/Contrast Date of Exam: Exam# [id number] Ordering Dr: Dangelo Botello MD PROCEDURE: CT [...] cm. *Status post right-sided nephrectomy. Reading Location: [facility] CC: Dr. Daksha Turner MD; Dr. Dangelo Botello MD Route Delivery Manager: Signed Normal [facility] Creatinine measurement at be dsideOrdered By: Dangelo Botello on 06-13-2024 Bedside Creatinine < 1.0 mg/dL 0.70-1.30 [facility] EGFROrdered By: Dangelo Botello on 06-13-2024 Bedside Estimated GFR (eGFR) > 60.0000 mL/min >60 [facility] GFR/1.73 sq M.predicted among non-blacks MDRD (S/P/Bld) [Vol rate/Area] mL/min/{1.73_m2} >60 [facility] 69-AK-Pncxlgo DOrdered By: Tangela Chiu on 03-22-2024 Vitamin D 25-Hydroxy 30.8 ng/mL [facility] Comment on above: Vitamin D 25(OH) Sta tus Range Deficiency <20 ng/mL (50nmol/L) Insufficiency 20 - 30 ng/mL (50 - 75 nmol/L) Sufficiency 30 - 100 ng/mL (75 - 250 nmol/L) Toxicity >100 ng/mL (>250 nmol/L) Blood urea nitrogen (BUN)/cr eatinine ratioOrdered By: Isidra Chiu on 03-22-2024 Urea nitrogen/Creatinine [Mass ratio] 10.8 mg/mg 10-20 [facility] Carbon dioxide measurementOr dered By: Isidra Chiu on 03-22-2024 CO2 [Moles/Vol] 26.0 mmol/L 21.0-32.0 [facility] Chloride measurementOrdered By: Isidra Chiu on 03-22-2024 Chloride [Moles/Vol] 107 mmol/L 98-107 [facility] Estimated glomerular filtrat ion rate (GFR) AmericanOrdered By: Isidra Chiu on 03-22-2024 Estimated GFR (MDRD) Amer 39 mL/min Low >60 [facility] Comment on above: GFR Calc Glomerular filtration rate ( GFR) estimationOrdered By: Isidra Chiu on 03-22-2024 Estimated GFR (MDRD) Non-Af Amer 32 mL/min Low >60 [facility] Comment on above: Non- GFR Calc Glucose measurementOrdered B y: Isidra Chiu on 03-22-2024 Glucose [Mass/Vol] 118 mg/dL High 74-106 [facility] Comment on above: Fasting Glucose resu lt from 100 to 125 mg/dL suggests IMPAIRED HOMEOSTASIS per A.D.A. criteria. Phosphorus measurementOrdere d By: Isidra Chiu on 03-22-2024 Phosphorus Level 2.6 mg/dL 2.5-4.9 [facility] Potassium measurementOrdered By: Isidra Chiu on 03-22-2024 Potassium [Moles/Vol] 4.3 mmol/L 3.5-5.1 [facility] Renal Profileon 03-22-2024 Albumin [Mass/Vol] 3.1 g/dL Low 3.2-5.0 [facility] Comment on above: Performed By: #### L 506.1000, L500.3600 ####[facility] [address] [place], [address] BUN/CRE 10.8 RATIO Normal 10-20 [facility] Comment on above: Performed By: #### L 506.1000, L500.3600 ####[facility] [address] [place], [address] CA,Total 8.3 mg/dL Low 8.5-10.1 [facility] Comment on above: Performed By: #### L 506.1000, L500.3600 ####[facility] [address] [place], [address] Chloride [Moles/Vol] 107 mmol/L Normal 98-107 [facility] Comment on above: Performed By: #### L 506.1000, L500.3600 ####[facility] [address] [place], [address] CO2 [Moles/Vol] 26.0 mmol/L Normal 21.0-32.0 [facility] Comment on above: Performed By: #### L 506.1000, L500.3600 ####[facility] [address] [place], [address] Creatinine [Mass/Vol] 2.22 mg/dL High 0.70-1.30 [facility] Comment on above: Result Comment: The validity of the calculated GFR GFRAA in patients over 70 years has not been determined. Clinical correlation is essential. Performed By: #### L 506.1000, L500.3600 ####[facility] [address] [place], [address] EST GFR - AA 39 mL/min Low >60 [facility] Comment on above: Result Comment: Afri can Guamanian GFR Calc Performed By: #### L 506.1000, L500.3600 ####[facility] [address] [place], [address] GFR/1.73 sq M.predicted among non-blacks MDRD (S/P/Bld) [Vol rate/Area] 32 mL/min/{1.73_m2} Low >60 [facility] Comment on above: Result Comment: Non- GFR Calc Performed By: #### L 506.1000, L500.3600 ####[facility] [address] [place], [address] Glucose [Mass/Vol] 118 mg/dL High 74-106 [facility] Comment on above: Result Comment: Fast ing Glucose result from 100 to 125 mg/dL suggests IMPAIRED HOMEOSTASIS per A.D.A. criteria. Performed By: #### L 506.1000, L500.3600 ####[facility] [address] [place], [address] Phosphate [Mass/Vol] 2.6 mg/dL Normal 2.5-4.9 [facility] Comment on above: Performed By: #### L 506.1000, L500.3600 ####[facility] [address] [place], [address] Potassium [Moles/Vol] 4.3 mmol/L Normal 3.5-5.1 [facility] Comment on above: Performed By: #### L 506.1000, L500.3600 ####[facility] [address] [place], [address] Sodium [Moles/Vol] 138 mmol/L Normal 136-145 [facility] Comment on above: Performed By: #### L 506.1000, L500.3600 ####[facility] [address] [place], [address] Urea nitrogen [Mass/Vol] 24 mg/dL High 09-22 [facility] Comment on above: Performed By: #### L 506.1000, L500.3600 ####[facility] [address] [place], [address] Serum or plasma albumin cory urement (mass/volume)Ordered By: Isidra Chiu on 03-22-2024 Albumin [Mass/Vol] 3.1 g/dL Low 3.2-5.0 [facility] Serum or plasma calcium cory urement (mass/volume)Ordered By: Isidra Chiu on 03-22-2024 Calcium [Mass/Vol] 8.3 mg/dL Low 8.5-10.1 [facility] Serum or plasma creatinine m easurement (mass/volume)Ordered By: Isidra Chiu on 03-22-2024 Creatinine [Mass/Vol] 2.22 mg/dL High 0.70-1.30 [facility] Comment on above: The validity of the calculated GFR & GFRAA in patients over 70 years has not been determined. Clinical correlation is essential. Serum or plasma urea nitroge n measurement (mass/volume)Ordered By: Isidra Chiu on 03-22-2024 Urea nitrogen [Mass/Vol] 24 mg/dL High 09-22 [facility] Sodium levelOrdered By: Shawna Chiu on 03-22-2024 Sodium [Moles/Vol] 138 mmol/L 136-145 [facility] Vitamin D,25 Hydroxyon 03-22 Vitamin D 25-OH 30.8 ng/mL Normal [facility] Comment on above: Result Comment: Constanza min D 25(OH) Status Range Deficiency <20 ng/mL (50nmol/L) Insufficiency 20 - 30 ng/mL (50 - 75 nmol/L) Sufficiency 30 - 100 ng/mL (75 - 250 nmol/L) Toxicity >100 ng/mL (>250 nmol/L) Performed By: #### L 506.1000, L500.3600 ####[facility] [address] [facility] [place], [place], [address] Low Dose CT Lung Screeningon 02-08-[address] Lung Screening [facility] [address] [place], [place] [address] Low Dose CT Lung Screening MR#: [id number] Acct: [id number] Name: YEFRI YANEZ Rep #: [id number] : 1965 M 59 From: Rony amador MD PCP: Dr. Daksha Turner MD Status: [facility] Study: Low Dose CT Lung Screening Date of Exam: 02/07 Exam# [id number] Ordering Dr: Daksha Turner [id number] STUDY: LOW DOSE CT LUNG CANCER SCREENING [...] additional features (more content not included)... Normal [facility] Sex Hormone-binding Globulin on 01-13-2024 SHBG 23.8 nmol/L Normal 19.3-76.4 [facility] Comment on above: Order Comment: PER P T-JUST ORDER FROM JOHNNY DATED FOR TODAYOrder Date: 01/11/24Order Info: [id number] - SEXHORM Result Comment: Perf ormed at: - [facility] [address] [id number] [employer] Team Lead: Elías Moreau PhD, Phone: [phone] Performed By: #### L 5000.0012 #### [facility] [address] [facility] [address] [place], [place], [address] Abd Inc Decub and/or Erecton 01-11-2024 Abd Inc Decub and/or Erect [facility] [address] [place], [place] [address] Abd Inc Decub and/or Erect MR#: [id number] Acct: [id number] Name: YEFRI YANEZ Rep #: [id number] : 1965 M 59 From: Lul Peters MD PCP: Dr. Daksha Turner MD Status: REG CLI Study: Abd Inc Decub and/or Erect Date of Exam: 01/10 Exam# [id number] Ordering Dr: Daksha Turner D [id number] STUDY: X-RAY - ABDOMEN/PELVIS REASON FOR EXAM: [...] EST , CC: Dr. Daksha Turner MD Route Delivery Manager: Signed Normal [facility] FSH and LHon 01-11-2024 FSH 3.4 mIU/mL Normal [facility] Comment on above: Order Comment: PER P T-JUST ORDER FROM JOHNNY DATED FOR TODAYOrder Date: 01/11/24Order Info: [id number] - FSHLH Result Comment: NORMAL REFERENCE RANGES FEMALE FOLLICULAR 2.3 - 12.6 mIU/mL MID-CYCLE PEAK 5.2 - 17.5 mIU/mL LUTEAL 1.7 - 12.9 mIU/mL POST-MENOPAUSAL ON MHT 5.9 - 72.8 mIU/mL NOT ON MHT 12.7 - 132.2 mlU/mL MALE 0.7 - 10.8 mIU/mL Performed By: #### L 5000.0012 #### [facility] [address] [place], [address] LH 4.5 mIU/mL Normal [facility] Comment on above: Order Comment: PER P T-JUST ORDER FROM [employer] DATED FOR TODAYOrder Date: 01/11/24Order Info: [id number] - FSHLH Result Comment: NORMAL REFERENCE RANGES FEMALE FOLLICULAR 1.9 - 26.2 mIU/mL MID-CYCLE PEAK 22.8 - 76.1 mIU/mL LUTEAL 0.6 - 16.6 mIU/mL POST-MENOPAUSAL ON MHT 1.1 - 52.4 mIU/mL NOT ON MHT 8.6 - 61.8 mIU/mL MALE 1.2 - 10.6 mIU/mL Performed By: #### L 5000.0012 #### [facility] [address] [place], [address] Testosterone, Serum Totalon 01-11-2024 Testosterone [Mass/Vol] 398.15 ng/dL Normal [facility] Comment on above: Order Comment: PER P T-JUST ORDER FROM [employer] DATED FOR TODAYOrder Date: 01/11/24Order Info: [id number] - INDY Result Comment: CENT RAL 90% REFERENCE RANGES MALE AGE <50 197.44 - 669.58 ng/dL MALE AGE > or = 50 187.72 - 684.19 ng/dL FEMALE AGE <50 8.38 - 35.01 ng/dL FEMALE AGE > or = 50 <7.00 - 35.92 ng/dL Effective as of 10/01/20 Performed By: #### L 5000.0012 #### [facility] [address] [place], [address] L5000.0012on 12-25-2023 Vitamin B12 Normal [facility] Comment on above: Result Comment: TEST RESULTS LIMITS Vitamin B12 291 pg/mL [phone] TESTING PERFORMED AT [facility]. ORIGINAL REPORT ON FILE IN LAB CONTAINS ADDITIONAL TEST SITE INFORMATION. Performed By: #### L 5000.0012 #### [facility] [address] [place], [place], [address] CBC-Complete Blood Cnt No Di ffon 12-22-2023 Erythrocyte distribution width (RBC) [Ratio] 16.7 % High 11.6-14.6 [facility] Comment on above: Order Comment: Order Date: 11/29/23 Order Info: [id number] - CBC Performed By: #### L 500.4050, L503.6150, L500.4100, L100.0500, L503.6550 #### [facility] [address] [place], [place], [address] Hematocrit (Bld) [Volume fraction] 43.7 % Normal 40-54 [facility] Comment on above: Order Comment: Order Date: 11/29/23 Order Info: [id number] - CBC Performed By: #### L 500.4050, L503.6150, L500.4100, L100.0500, L503.6550 #### [facility] [address] [place], [place], [address] [phone] Hemoglobin (Bld) [Mass/Vol] 14.8 g/dL Normal 13.0-16.5 [facility] Comment on above: Order Comment: Order Date: 11/29/23 Order Info: [id number] - CBC Performed By: #### L 500.4050, L503.6150, L500.4100, L100.0500, L503.6550 #### [facility] [address] [place], [address] MCH (RBC) [Entitic mass] 34.1 pg High 27.0-32.0 [facility] Comment on above: Order Comment: Order Date: 11/29/23 Order Info: [id number] - CBC Performed By: #### L 500.4050, L503.6150, L500.4100, L100.0500, L503.6550 #### [facility] [address] [place], [address] MCHC (RBC) [Mass/Vol] 33.9 g/dL Normal 32-36 [facility] Comment on above: Order Comment: Order Date: 11/29/23 Order Info: [id number] - CBC Performed By: #### L 500.4050, L503.6150, L500.4100, L100.0500, L503.6550 #### [facility] [address] [place], [address] MCV (RBC) [Entitic vol] 100.7 fL High 80-94 [facility] Comment on above: Order Comment: Order Date: 11/29/23 Order Info: [id number] - CBC Performed By: #### L 500.4050, L503.6150, L500.4100, L100.0500, L503.6550 #### [facility] [address] [place], [address] Platelet mean volume (Bld) [Entitic vol] 11.4 fL Normal 6.2-12.0 [facility] Comment on above: Order Comment: Order Date: 11/29/23 Order Info: [id number] - CBC Performed By: #### L 500.4050, L503.6150, L500.4100, L100.0500, L503.6550 #### [facility] [address] [place], [address] Platelets (Bld) [#/Vol] 219 10*3/uL Normal 150-450 [facility] Comment on above: Order Comment: Order Date: 11/29/23 Order Info: [id number] - CBC Performed By: #### L 500.4050, L503.6150, L500.4100, L100.0500, L503.6550 #### [facility] [address] [place], [address] RBC (Bld) [#/Vol] 4.34 10*6/uL Low 4.6-6.2 [facility] Comment on above: Order Comment: Order Date: 11/29/23 Order Info: [id number] - CBC Performed By: #### L 500.4050, L503.6150, L500.4100, L100.0500, L503.6550 #### [facility] [address] [place], [address] RDW SD 62.4 fl High 35.1-43.9 [facility] Comment on above: Order Comment: Order Date: 11/29/23 Order Info: [id number] - CBC Performed By: #### L 500.4050, L503.6150, L500.4100, L100.0500, L503.6550 #### [facility] [address] [place], [address] WBC (Bld) [#/Vol] 7.6 10*3/uL Normal 4.4-11.0 [facility] Comment on above: Order Comment: Order Date: 11/29/23 Order Info: [id number] - CBC Performed By: #### L 500.4050, L503.6150, L500.4100, L100.0500, L503.6550 #### [facility] [address] [place], [address] Comprehensive Metabolic Prof ilon 12-22-2023 Albumin [Mass/Vol] 3.2 g/dL Normal 3.2-5.0 [facility] Comment on above: Order Comment: Order Date: 11/29/23 Order Info: [id number] - CMP Order Info: - LIPID Order Info: [id number] Order Info: [id number] - MARTIN Performed By: #### L 500.4050, L503.6150, L500.4100, L100.0500, L503.6550 #### [facility] [address] [place], [address] Albumin/Globulin [Mass ratio] 0.9 {ratio} Normal 0.9-2.4 [facility] Comment on above: Order Comment: Order Date: 11/29/23 Order Info: [id number] - CMP Order Info: - LIPID Order Info: [id number] Order Info: [id number] - MARTIN Performed By: #### L 500.4050, L503.6150, L500.4100, L100.0500, L503.6550 #### [facility] [address] [place], [address] ALK P 64 U/L Normal 45-117 [facility] Comment on above: Order Comment: Order Date: 11/29/23 Order Info: [id number] - CMP Order Info: - LIPID Order Info: [id number] Order Info: [id number] - MARTIN Performed By: #### L 500.4050, L503.6150, L500.4100, L100.0500, L503.6550 #### [facility] [address] [place], [address] ALT [Catalytic activity/Vol] 48 U/L Normal 16-61 [facility] Comment on above: Order Comment: Order Date: 11/29/23 Order Info: [id number] - CMP Order Info: - LIPID Order Info: [id number] Order Info: [id number] - MARTIN Performed By: #### L 500.4050, L503.6150, L500.4100, L100.0500, L503.6550 #### [facility] [address] [place], [address] AST [Catalytic activity/Vol] 37 U/L Normal 15-37 [facility] Comment on above: Order Comment: Order Date: 11/29/23 Order Info: [id number] - CMP Order Info: [id number] - LIPID Order Info: [id number] - FE Order Info: [id number] - MARTIN Performed By: #### L 500.4050, L503.6150, L500.4100, L100.0500, L503.6550 #### [facility] [address] [place], [id number] Bilirubin [Mass/Vol] 0.50 mg/dL Normal 0.20-1.00 [facility] Comment on above: Order Comment: Order Date: 11/29/23 Order Info: 07 - CMP Order Info: [id number] - LIPID Order Info: 2497-06 - FE Order Info: 2275-06 - MARTIN Result Comment: For patients on eltrombopag therapy, use of Dimension [place] TBIL is not recommended. Performed By: #### L 500.4050, L503.6150, L500.4100, L100.0500, L503.6550 #### [facility] [address] [place], [address] BUN/CRE 10.2 RATIO Normal 10-20 [facility] Comment on above: Order Comment: Order Date: 11/29/23 Order Info: 0786-1 - CMP Order Info: [id number] - LIPID Order Info: 2497-06 - FE Order Info: 2275-4 - MARTIN Performed By: #### L 500.4050, L503.6150, L500.4100, L100.0500, L503.6550 #### [facility] [address] [place], [address] CA,Total 9.0 mg/dL Normal 8.5-10.1 [facility] Comment on above: Order Comment: Order Date: 11/29/23 Order Info: 785-03 - CMP Order Info: - LIPID Order Info: 2497-06 Order Info: 2275-06 - MARTIN Performed By: #### L 500.4050, L503.6150, L500.4100, L100.0500, L503.6550 #### [facility] [address] [place], [address] Chloride [Moles/Vol] 106 mmol/L Normal 98-107 [facility] Comment on above: Order Comment: Order Date: 11/29/23 Order Info: 785-03 - CMP Order Info: - LIPID Order Info: 2497-06 Order Info: 2275-06 - MARTIN Performed By: #### L 500.4050, L503.6150, L500.4100, L100.0500, L503.6550 #### [facility] [address] [place], [address] CO2 [Moles/Vol] 25.0 mmol/L Normal 21.0-32.0 [facility] Comment on above: Order Comment: Order Date: 11/29/23 Order Info: 785-03 - CMP Order Info: - LIPID Order Info: 2497-06 Order Info: 2275-06 - MARTIN Performed By: #### L 500.4050, L503.6150, L500.4100, L100.0500, L503.6550 #### [facility] [address] [place], [address] Creatinine [Mass/Vol] 1.86 mg/dL High 0.70-1.30 [facility] Comment on above: Order Comment: Order Date: 11/29/23 Order Info: 785-03 - CMP Order Info: - LIPID Order Info: 2497-06 Order Info: 2275-06 - MARTIN Result Comment: The validity of the calculated GFR GFRAA in patients over 70 years has not been determined. Clinical correlation is essential. Performed By: #### L 500.4050, L503.6150, L500.4100, L100.0500, L503.6550 #### [facility] [address] [place], [address] EST GFR - AA 48 mL/min Low >60 [facility] Comment on above: Order Comment: Order Date: 11/29/23 Order Info: 0786- - CMP Order Info: [id number] - LIPID Order Info: 2497-06 Order Info: 2275-06 - MARTIN Result Comment: Afri can Guamanian GFR Calc Performed By: #### L 500.4050, L503.6150, L500.4100, L100.0500, L503.6550 #### [facility] [address] [place], [address] GAP 7 Normal 5-15 [facility] Comment on above: Order Comment: Order Date: 11/29/23 Order Info: 785-03 - CMP Order Info: [id number] - LIPID Order Info: 2497-06 Order Info: 2275-06 - MARTIN Performed By: #### L 500.4050, L503.6150, L500.4100, L100.0500, L503.6550 #### [facility] [address] [place], [address] GFR/1.73 sq M.predicted among non-blacks MDRD (S/P/Bld) [Vol rate/Area] 40 mL/min/{1.73_m2} Low >60 [facility] Comment on above: Order Comment: Order Date: 11/29/23 Order Info: 0786-1 - CMP Order Info: [id number] - LIPID Order Info: 2497-06 Order Info: 2275-06 - MARTIN Result Comment: Non- GFR Calc Performed By: #### L 500.4050, L503.6150, L500.4100, L100.0500, L503.6550 #### [facility] [address] [place], [address] Globulin (S) [Mass/Vol] 3.4 g/dL Normal 2.2-4.2 [facility] Comment on above: Order Comment: Order Date: 11/29/23 Order Info: 785- - CMP Order Info: - LIPID Order Info: 2497-06 Order Info: 2275-06 - MARTIN Performed By: #### L 500.4050, L503.6150, L500.4100, L100.0500, L503.6550 #### [facility] [address] [place], [address] Glucose [Mass/Vol] 115 mg/dL High 74-106 [facility] Comment on above: Order Comment: Order Date: 11/29/23 Order Info: 785-03 - CMP Order Info: - LIPID Order Info: 2497-06 Order Info: 2275-06 - MARTIN Result Comment: Fast ing Glucose result from 100 to 125 mg/dL suggests IMPAIRED HOMEOSTASIS per A.D.A. criteria. Performed By: #### L 500.4050, L503.6150, L500.4100, L100.0500, L503.6550 #### [facility] [address] [place], [address] Potassium [Moles/Vol] 4.3 mmol/L Normal 3.5-5.1 [facility] Comment on above: Order Comment: Order Date: 11/29/23 Order Info: 785-03 - CMP Order Info: - LIPID Order Info: 2497-06 Order Info: 2275-06 - MARTIN Performed By: #### L 500.4050, L503.6150, L500.4100, L100.0500, L503.6550 #### [facility] [address] [place], [address] Sodium [Moles/Vol] 138 mmol/L Normal 136-145 [facility] Comment on above: Order Comment: Order Date: 11/29/23 Order Info: 785-03 - CMP Order Info: - LIPID Order Info: 2497-06 - FE Order Info: 2275-06 - MARTIN Performed By: #### L 500.4050, L503.6150, L500.4100, L100.0500, L503.6550 #### [facility] [address] [place], [address] T PROT 6.6 g/dL Normal 6.4-8.2 [facility] Comment on above: Order Comment: Order Date: 11/29/23 Order Info: 785-03 - CMP Order Info: - LIPID Order Info: 2497-06 - FE Order Info: 2275-06 - MARTIN Performed By: #### L 500.4050, L503.6150, L500.4100, L100.0500, L503.6550 #### [facility] [address] [place], [address] Urea nitrogen [Mass/Vol] 19 mg/dL High 7-18 [facility] Comment on above: Order Comment: Order Date: 11/29/23 Order Info: 785-03 - CMP Order Info: - LIPID Order Info: 2497-06 - FE Order Info: 2275-06 - MARTIN Performed By: #### L 500.4050, L503.6150, L500.4100, L100.0500, L503.6550 #### [facility] [address] [place], [address] Ferritinon 12-22-2023 Ferritin [Mass/Vol] 452 ng/mL High 26-388 [facility] Comment on above: Order Comment: Order Date: 11/29/23 Order Info: 785-03 - CMP Order Info: - LIPID Order Info: 2497-06 - FE Order Info: 2275-06 - MARTIN Performed By: #### L 500.4050, L503.6150, L500.4100, L100.0500, L503.6550 #### [facility] [address] [place], [address] Ironon 12-22-2023 Iron [Mass/Vol] 92 ug/dL Normal 65-175 [facility] Comment on above: Order Comment: Order Date: 11/29/23 Order Info: 07- - CMP Order Info: - LIPID Order Info: 2497-06 FE Order Info: 2275-06 - MARTIN Performed By: #### L 500.4050, L503.6150, L500.4100, L100.0500, L503.6550 #### [facility] [address] [place], [address] Lipid Profileon 12-22-2023 Cholesterol [Mass/Vol] 112 mg/dL Normal 200 [facility] Comment on above: Order Comment: Order Date: 11/29/23 Order Info: 785-03 - CMP Order Info: - LIPID Order Info: 2497-06 Order Info: 2275-06 - MARTIN Result Comment: <200 mg/dL Desirable 200-240 mg/dL Borderline >240 mg/dL High Risk Performed By: #### L 500.4050, L503.6150, L500.4100, L100.0500, L503.6550 #### [facility] [address] [place], [address] Cholesterol in HDL [Mass/Vol] 44 mg/dL Normal [facility] Comment on above: Order Comment: Order Date: 11/29/23 Order Info: 07 - CMP Order Info: - LIPID Order Info: 2497-06 Order Info: 2275-06 - MARTIN Result Comment: The drugs N-Acetylcysteine and Metamizole may falsely depress this assay. Reference Range HDL <40 mg/dL Low HDL Cholesterol HDL >or= 60 mg/dL High HDL Cholesterol Performed By: #### L 500.4050, L503.6150, L500.4100, L100.0500, L503.6550 #### [facility] [address] [place], [address] Cholesterol in LDL [Mass/Vol] 47 mg/dL Normal 0-130 [facility] Comment on above: Order Comment: Order Date: 11/29/23 Order Info: 07 - CMP Order Info: - LIPID Order Info: 2497-06 Order Info: 2275-06 - MARTIN Performed By: #### L 500.4050, L503.6150, L500.4100, L100.0500, L503.6550 #### [facility] [address] [place], [address] Cholesterol in VLDL [Mass/Vol] 21 mg/dL Normal 5-40 [facility] Comment on above: Order Comment: Order Date: 11/29/23 Order Info: 785-03 - CMP Order Info: [id number] - LIPID Order Info: 2497-06 Order Info: 2275-06 - MARTIN Performed By: #### L 500.4050, L503.6150, L500.4100, L100.0500, L503.6550 #### [facility] [address] [place], [address] Triglyceride [Mass/Vol] 104 mg/dL Normal [facility] Comment on above: Order Comment: Order Date: 11/29/23 Order Info: 07 - CMP Order Info: [id number] - LIPID Order Info: 2497-06 Order Info: 2275-06 - MARTIN Result Comment: The drugs N-Acetylcysteine and Metamizole may falsely depress this assay. Serum Triglycerides Reference Interval Normal <150 mg/dL Borderline high 150 - 199 mg/dL High 200 - 499 mg/dL Very High > or = 500 mg/dL Performed By: #### L 500.4050, L503.6150, L500.4100, L100.0500, L503.6550 #### [facility] [address] [place], [address] Oncology Visit Reporton 12-06 Oncology Visit Report [facility] [address] [place] [address] OFFICE VISIT Date of Service: 12/22/23 1331 MR#: [id number] Acct: [id number] Name: YEFRI YANEZ Rep #: [id number] : 1965 From: Dangelo Botello MD Age/Sex: 58/M Location[place] [facility] Status: Signed HPI Subjective [...] for follow up after CT. Feeling well [facility] Medical History Abnormal chest x-ray Warfarin-induced [...] 12.5 mg (more content not included)... Normal [facility] CT Chest, Abd, Pelvis WO Con ton 10-07-2023 CT Chest, Abd, Pelvis WO Cont [facility] Services [address] [place], [place] [id number] CT Chest, Abd, Pelvis WO Cont MR#: [id number] Acct: [id number] Name: YEFRI YANEZ Rep #: [id number] : 1965 M 58 From: Davy Scott PCP: Dr. Daksha Turner MD Status: REG CLI Study: CT Chest, Abd, Pelvis WO Cont Date of Exam: Exam# [id number] Ordering Dr: Dangelo Botello MD [id number] STUDY: CT CHEST, ABDOMEN T PELVIS WITHOUT [...] Daksha Turner MD; Dr. Dangelo Botello MD Route Delivery Manager: Signed Normal [facility] Basophil percentageOrdered B y: Jose Ramon Turner on 05-27-2023 Bilirubin [Mass/Vol] 0.60 mg/dL 0.20-1.00 [facility] Comment on above: For patients on eltr ombopag therapy, use of Dimension [place] TBIL is not recommended. Chloride [Moles/Vol] 106 mmol/L 98-107 [facility] Glucose [Mass/Vol] 106 mg/dL 74-106 [facility] Comment on above: Fasting Glucose resu lt from 100 to 125 mg/dL suggests IMPAIRED HOMEOSTASIS per A.D.A. criteria. Potassium [Moles/Vol] 3.8 mmol/L 3.5-5.1 [facility] Comment on above: Slight Hemolysis, Re sult may be falsely increased. Protein [Mass/Vol] 6.7 g/dL 6.4-8.2 [facility] Sodium [Moles/Vol] 138 mmol/L 136-145 [facility] Testosterone [Mass/Vol] 173.63 ng/dL [facility] Comment on above: CENTRAL 90% REFERENC E RANGES MALE AGE <50 197.44 - 669.58 ng/dL MALE AGE > or = 50 187.72 - 684.19 ng/dL FEMALE AGE <50 8.38 - 35.01 ng/dL FEMALE AGE > or = 50 <7.00 - 35.92 ng/dL Effective as of 10/01/20 Iron measurement (mass/mass) Ordered By: Jose Ramon Turner on 05-27-2023 Iron (Unsp spec) [Mass/Mass] 115 ug/dL 65-175 [facility] Comment on above: Slight Hemolysis, Re sult may be falsely increased. Laboratory - Chemistry and C hemistry - challengeOrdered By: Jose Ramon Turner on 05-27-2023 Albumin/Globulin [Mass ratio] 0.9 {ratio} 0.9-2.4 [facility] ALP [Catalytic activity/Vol] 73 U/L 45-117 [facility] ALT [Catalytic activity/Vol] 54 U/L 16-61 [facility] CO2 [Moles/Vol] 24.0 mmol/L 21.0-32.0 [facility] Cobalamin (Vitamin B12) [Mass/Vol] 241 pg/mL 211-911 [facility] Ferritin [Mass/Vol] 515 ng/mL 26-388 [facility] Globulin (S) [Mass/Vol] 3.6 g/dL 2.2-4.2 [facility] Urea nitrogen/Creatinine [Mass ratio] 10.7 mg/mg 10-20 [facility] No Panel InformationOrdered By: Jose Ramon Turner on 05-27-2023 Estimated GFR (MDRD) Amer 54 mL/min >60 [facility] Comment on above: GFR Calc Estimated GFR (MDRD) Non-Af Amer 44 mL/min >60 [facility] Comment on above: Non- GFR Calc Serum or plasma calcium cory urement (mass/volume)Ordered By: Jose Ramon Turner on 05-27-2023 Calcium [Mass/Vol] 8.8 mg/dL 8.5-10.1 [facility] Serum or plasma creatinine m easurement (mass/volume)Ordered By: Jose Ramon Turner on 05-27-2023 Creatinine [Mass/Vol] 1.69 mg/dL 0.70-1.30 [facility] Comment on above: The validity of the calculated GFR & GFRAA in patients over 70 years has not been determined. Clinical correlation is essential. Serum or plasma thyroid stim ulating hormone (TSH) measurement (units/volume)Ordered By: Jose Ramon Turner on 05-27-2023 TSH Qn 3.25 uIU/mL 0.358-3.74 [facility] Serum or plasma urea nitroge n measurement (mass/volume)Ordered By: Jose Ramon Turner on 05-27-2023 Urea nitrogen [Mass/Vol] 18 mg/dL 7-18 [facility] Thin prep Papanicolaou smear with manual screeningOrdered By: Jose Ramon Turner on 05-27-2023 Thin prep Papanicolaou smear with manual screening 3.1 g/dL 3.2-5.0 [facility] Thin prep Papanicolaou smear with manual screening 40 U/L 15-37 [facility] Comment on above: Slight Hemolysis, Re sult may be falsely increased. Thin prep Papanicolaou smear with manual screening 8 07-20 [facility] Clostridioides difficile nuc leic acid assay by PCROrdered By: Jose Ramon Turner on 05-21-2023 C. difficile DNA SANDOVAL+probe Ql (Unsp spec) [facility] Lower GI hemoglobin IA Ql (S tl)Ordered By: Jose Ramon Turner on 05-21-2023 Stool Occult Blood (STEVENSON) Positive [facility] Ova and parasitesOrdered By: Jose Ramon Turner on 05-21-2023 Ova and parasites identified LM Nom (Unsp spec) [facility] Stool enteric pathogen panel by probe and target amplification methodOrdered By: Jose Ramon Turner on 05-21-2023 Gastrointestinal pathogens panel SANDOVAL+probe (Stl) [facility] Stool pancreatic elastase me asurement (mass/mass)Ordered By: Jose Ramon Turner on 05-21-2023 Elastase.pancreatic (Stl) [Mass/Mass] See comment [facility] Comment on above: TEST RESULTS LIMITSP ancreatic Elastase, Fecal 218 ug Elast./g >200 Severe Pancreatic Insufficiency: <100 Moderate Pancreatic Insufficiency: 100 - 200 Normal: >200 TESTING PERFORMED AT [facility]. ORIGINAL REPORT ON FILE IN LAB CONTAINS ADDITIONAL TEST SITE INFORMATION. Basophil percentageOrdered B y: Jose Ramon Turner on 05-20-2023 Basophil percentage 2.0 mg/dL 2.5-4.9 [facility] Chloride [Moles/Vol] 104 mmol/L 98-[address] [facility] [address] [facility] Glucose [Mass/Vol] 113 mg/dL 74-106 [facility] Comment on above: Fasting Glucose resu lt from 100 to 125 mg/dL suggests IMPAIRED HOMEOSTASIS per A.D.A. criteria. Potassium [Moles/Vol] 3.8 mmol/L 3.5-5.1 [facility] Sodium [Moles/Vol] 137 mmol/L 136-145 [facility] Laboratory - Chemistry and C hemistry - challengeOrdered By: Jose Ramon Turner on 05-20-2023 CO2 [Moles/Vol] 24.0 mmol/L 21.0-32.0 [facility] Urea nitrogen/Creatinine [Mass ratio] 11.1 mg/mg 10-20 [facility] No Panel InformationOrdered By: Jose Ramon Turner on 05-20-2023 Estimated GFR (MDRD) Amer 47 mL/min >60 [facility] Comment on above: GFR Calc Estimated GFR (MDRD) Non-Af Amer 39 mL/min >60 [facility] Comment on above: Non- GFR Calc Serum or plasma calcium cory urement (mass/volume)Ordered By: Jose Ramon Turner on 05-20-2023 Calcium [Mass/Vol] 8.6 mg/dL 8.5-10.1 [facility] Serum or plasma creatinine m easurement (mass/volume)Ordered By: Jose Ramon Turner on 05-20-2023 Creatinine [Mass/Vol] 1.89 mg/dL 0.70-1.30 [facility] Comment on above: The validity of the calculated GFR & GFRAA in patients over 70 years has not been determined. Clinical correlation is essential. Serum or plasma urea nitroge n measurement (mass/volume)Ordered By: Jose Ramon Turner on 05-20-2023 Urea nitrogen [Mass/Vol] 21 mg/dL 7-18 [facility] Thin prep Papanicolaou smear with manual screeningOrdered By: Jose Ramon Turner on 05-20-2023 Thin prep Papanicolaou smear with manual screening 3.2 g/dL 3.2-5.0 [facility] Absolute lymphocyte countOrd ered By: Dangelo Botello on 04-12-2023 Lymphocytes Auto (Unsp spec) [#/Vol] 1.08 10*3/uL 0.83-4.51 [facility] Automated lymphocyte count a s percentage of total leukocytesOrdered By: Dangelo Botello on 04-12-2023 Lymphocytes/100 WBC Auto (Unsp spec) 18.6 % 19-41 [facility] Basophil percentageOrdered B y: Dangelo Botello on 04-12-2023 Basophils/100 WBC (Bld) 0.3 % 0-1 [facility] Bilirubin [Mass/Vol] 0.50 mg/dL 0.20-1.00 [facility] Comment on above: For patients on eltr ombopag therapy, use of Dimension [place] TBIL is not recommended. Chloride [Moles/Vol] 106 mmol/L 98-107 [facility] Eosinophils/100 WBC (Bld) 0.5 % 0-5 [facility] Glucose [Mass/Vol] 121 mg/dL 74-106 [facility] Comment on above: Fasting Glucose resu lt from 100 to 125 mg/dL suggests IMPAIRED HOMEOSTASIS per A.D.A. criteria. Hemoglobin (Bld) [Mass/Vol] 13.9 g/dL 13.0-16.5 [facility] LDH [Catalytic activity/Vol] 391 U/L 87-241 [facility] Comment on above: Slight Hemolysis, Re sult may be falsely increased. Monocytes/100 WBC (Bld) 6.4 % 0-10 [facility] Neutrophils (Bld) [#/Vol] 4.3 10*3/uL 2.0-7.7 [facility] Neutrophils/100 WBC (Bld) 74.0 % 47-70 [facility] Potassium [Moles/Vol] 3.6 mmol/L 3.5-5.1 [facility] Comment on above: Slight Hemolysis, Re sult may be falsely increased. Protein [Mass/Vol] 7.2 g/dL 6.4-8.2 [facility] Sodium [Moles/Vol] 141 mmol/L 136-145 [facility] WBC (Bld) [#/Vol] 5.8 10*3/uL 4.4-11.0 [facility] Blood manual differential co mment interpretation (narrative result)Ordered By: Dangelo Botello on 04-12-2023 Manual differential comment Piyush (Bld) [Interp] SCANNED [facility] Comment on above: 1+ ANISOCYTOSIS Determination of erythrocyte mean corpuscular volume (MCV)Ordered By: Dangelo Botello on 04-12-2023 MCV (RBC) [Entitic vol] 100.7 fL 80-94 [facility] Erythrocyte distribution wid th ratioOrdered By: Dangelo Botello on 04-12-2023 Erythrocyte distribution width (RBC) [Ratio] 17.9 % 11.6-14.6 [facility] Erythrocyte distribution wid th standard deviationOrdered By: Dangelo Botello on 04-12-2023 Erythrocyte distribution width (RBC) [Entitic vol] 66.3 fL 35.1-43.9 [facility] Hematocrit Auto (Bld) [Volum e fraction]Ordered By: Dangelo Botello on 04-12-2023 Hematocrit (Bld) [Volume fraction] 41.9 % 40-54 [facility] Immature granulocytes/100 WB C Auto (Bld)Ordered By: Dangelo Botello on 04-12-2023 Immature granulocytes/100 WBC (Bld) 0.200 % 0.0-0.9 [facility] Comment on above: IG% - Immature Granu locytes (promyelocytes, myelocytes and metamyelocytes) > 1% indicates that a LEFT SHIFT is Present. Laboratory - Chemistry and C hemistry - challengeOrdered By: Dangelo Botello on 04-12-2023 Albumin/Globulin [Mass ratio] 0.8 {ratio} 0.9-2.4 [facility] ALP [Catalytic activity/Vol] 61 U/L 45-117 [facility] ALT [Catalytic activity/Vol] 47 U/L 16-61 [facility] CO2 [Moles/Vol] 28.0 mmol/L 21.0-32.0 [facility] Globulin (S) [Mass/Vol] 3.9 g/dL 2.2-4.2 [facility] Urea nitrogen/Creatinine [Mass ratio] 10.8 mg/mg 10-20 [facility] - Hematology and Cell countsOrdered By: Dangelo Botello on 04-12-2023 MCH (RBC) [Entitic mass] 33.4 pg 27.0-32.0 [facility] MCHC (RBC) [Mass/Vol] 33.2 g/dL 32-36 [facility] Nucleated RBC/100 WBC (Bld) [Ratio] 0.3 % 0-5 [facility] Platelets (Bld) [#/Vol] 275 10*3/uL 150-450 [facility] No Panel InformationOrdered By: Dangelo Botello on 04-12-2023 Estimated Creatinine Clearance Calc 57.07 ml/min [facility] Estimated GFR (MDRD) Amer 48 mL/min >60 [facility] Comment on above: GFR Calc Estimated GFR (MDRD) Non-Af Amer 40 mL/min >60 [facility] Comment on above: Non- GFR Calc Platelet mean volume Kevin-Ec ker (Bld) [Entitic vol]Ordered By: Dangelo Botello on 04-12-2023 Platelet mean volume (Bld) [Entitic vol] 10.4 fL 6.2-12.0 [facility] RBC Auto (Bld) [#/Vol]Ordere d By: Dangelo Botello on 04-12-2023 RBC (Bld) [#/Vol] 4.16 10*6/uL 4.6-6.2 [facility] Serum or plasma calcium cory urement (mass/volume)Ordered By: Dangelo Botello on 04-12-2023 Calcium [Mass/Vol] 8.8 mg/dL 8.5-10.1 [facility] Serum or plasma creatinine m easurement (mass/volume)Ordered By: Dangelo Botello on 04-12-2023 Creatinine [Mass/Vol] 1.86 mg/dL 0.70-1.30 [facility] Comment on above: The validity of the calculated GFR & GFRAA in patients over 70 years has not been determined. Clinical correlation is essential. Serum or plasma urea nitroge n measurement (mass/volume)Ordered By: Dangelo Botello on 04-12-2023 Urea nitrogen [Mass/Vol] 20 mg/dL 7-18 [facility] Thin prep Papanicolaou smear with manual screeningOrdered By: Dangelo Botello on 04-12-2023 Thin prep Papanicolaou smear with manual screening 3.3 g/dL 3.2-5.0 [facility] Thin prep Papanicolaou smear with manual screening 34 U/L 15-37 [facility] Comment on above: Slight Hemolysis, Re sult may be falsely increased. Thin prep Papanicolaou smear with manual screening 7 5-15 [facility] Basophil percentageOrdered B y: Isidra Chiu on 02-12-2023 Basophil percentage 0-5 SEEN /hpf 0-5 [facility] Bilirubin Test strip Ql (U)O rdered By: Isidra Chiu on 02-12-2023 Bilirubin Ql (U) Negative Negative [facility] Ketones Test strip Ql (U)Ord ered By: Isidra Chiu on 02-12-2023 Ketones Ql (U) Negative Negative [facility] Mucus LM Ql (Urine sed)Order ed By: Isidra Chiu on 02-12-2023 Mucus Ql (Urine sed) 0 SEEN /hpf [facility] Nitrite Test strip Ql (U)Ord ered By: Isidra Chiu on 02-12-2023 Nitrite Ql (U) Negative Negative [facility] Protein Test strip Ql (U)Ord ered By: Isidra Chiu on 02-12-2023 Protein Ql (U) 15 mg/dl Negative [facility] Squamous epithelial cells de tection in urine sediment by light microscopyOrdered By: Isidra Chiu on 02-12-2023 Epithelial cells.squamous LM Ql (Urine sed) 0 SEEN /hpf 0-5 [facility] Urine blood detectionOrdered By: Isidra Chiu on 02-12-2023 RBC Ql (U) Negative Negative [facility] RBC Ql (U) 0 SEEN /hpf 0-5 [facility] Urine clarityOrdered By: Bruce Chiu on 02-12-2023 Clarity (U) Clear Clear [facility] Urine color determinationOrd ered By: Isidra Chiu on 02-12-2023 Color (U) Yellow Yellow [facility] Urine creatinine measurement (mass/volume)Ordered By: Isidra Chiu on 02-12-2023 Creatinine (U) [Mass/Vol] 194.00 mg/dL NO RANGE EST. [facility] Urine glucose detectionOrder ed By: Isidra Chiu on 02-12-2023 Glucose Ql (U) Normal mg/dl Normal [facility] Urine leukocyte esterase det ection by dipstickOrdered By: Isidra Chiu on 02-12-2023 Leukocyte esterase Test strip Ql (U) 25 /ul Negative [facility] Urine pHOrdered By: Lynette Chiu on 02-12-2023 pH (U) 5.0 [pH] 5.0 - 8.0 [facility] Urine protein measurement (m ass/volume)Ordered By: Isidra Chiu on 02-12-2023 Protein (U) [Mass/Vol] 20.7 mg/dL 0.0-11.8 [facility] Urine protein/creatinine mas s ratioOrdered By: Isidra Chiu on 02-12-2023 Protein/Creatinine (U) [Mass ratio] 107 mg/g CRE 0-200 [facility] Urine sediment bacteria coun t by microscopy (number/high power field)Ordered By: Isidra Chiu on 02-12-2023 Bacteria LM.HPF (Urine sed) [#/Area] 0 /[HPF] None Seen [facility] Urine specific gravity measu rementOrdered By: Isidra Chiu on 02-12-2023 Specific gravity (U) [Rel density] 1.020 1.002-1.03 0 [facility] Urobilinogen Auto test strip Ql (U)Ordered By: Isidra Chiu on 02-12-2023 Urobilinogen Ql (U) Normal mg/dl Normal [facility] Absolute lymphocyte countOrd ered By: Carol Chiu on 12-17-2022 Lymphocytes Auto (Unsp spec) [#/Vol] 0.88 10*3/uL 0.83-4.51 [facility] Basophil percentageOrdered B y: Carol Chiu on 12-17-2022 Basophils/100 WBC (Bld) 0.4 % 0-1 [facility] Chloride [Moles/Vol] 107 mmol/L 98-107 [facility] Eosinophils/100 WBC (Bld) 1.0 % 0-5 [facility] Glucose [Mass/Vol] 110 mg/dL 74-106 [facility] Comment on above: Fasting Glucose resu lt from 100 to 125 mg/dL suggests IMPAIRED HOMEOSTASIS per A.D.A. criteria. Neutrophils (Bld) [#/Vol] 3.7 10*3/uL 2.0-7.7 [facility] Neutrophils/100 WBC (Bld) 71.5 % 47-70 [facility] Potassium [Moles/Vol] 3.5 mmol/L 3.5-5.1 [facility] Sodium [Moles/Vol] 138 mmol/L 136-145 [facility] WBC (Bld) [#/Vol] 5.2 10*3/uL 4.4-11.0 [facility] Blood erythrocytes count (nu mber/volume)Ordered By: Carol Chiu on 12-17-2022 RBC (Bld) [#/Vol] 4.04 10*6/uL 4.6-6.2 [facility] Blood hemoglobin measurement (mass/volume)Ordered By: Carol Chiu on 12-17-2022 Hemoglobin (Bld) [Mass/Vol] 13.9 g/dL 13.0-16.5 [facility] Blood lymphocytes/100 leukoc ytesOrdered By: Carol Chiu on 12-17-2022 Lymphocytes/100 WBC (Bld) 16.9 % 19-41 [facility] Blood monocytes/100 leukocyt esOrdered By: Carol Chiu on 12-17-2022 Monocytes/100 WBC (Bld) 9.8 % 0-10 [facility] Blood platelet mean volumeOr dered By: Carol Chui on 12-17-2022 Platelet mean volume (Bld) [Entitic vol] 11.2 fL 6.2-12.0 [facility] Determination of erythrocyte mean corpuscular volume (MCV)Ordered By: Carol Chiu on 12-17-2022 MCV (RBC) [Entitic vol] 102.0 fL 80-94 [facility] Hematocrit Auto (Bld) [Volum e fraction]Ordered By: Carol Chiu on 12-17-2022 Hematocrit (Bld) [Volume fraction] 41.2 % 40-54 [facility] INR in Blood by Coagulation assayOrdered By: Marquise Padilla on 12-17-2022 INR Coag (Bld) [Relative time] 2.2 {INR} [facility] Laboratory - Chemistry and C hemistry - challengeOrdered By: Carol Chiu on 12-17-2022 CO2 [Moles/Vol] 26.0 mmol/L 21.0-32.0 [facility] Urea nitrogen/Creatinine [Mass ratio] 11.5 mg/mg 10-20 [facility] Laboratory - CoagulationOrde red By: Marquise Padilla on 12-17-2022 PT Coag (PPP) [Time] 24.6 s 11.7-14.9 [facility] Laboratory - Hematology and Cell countsOrdered By: Carol Chiu on 12-17-2022 Erythrocyte distribution width (RBC) [Entitic vol] 63.6 fL 35.1-43.9 [facility] Erythrocyte distribution width (RBC) [Ratio] 16.9 % 11.6-14.6 [facility] Immature granulocytes/100 WBC (Bld) 0.400 % 0.0-0.9 [facility] Comment on above: IG% - Immature Granu locytes (promyelocytes, myelocytes and metamyelocytes) > 1% indicates that a LEFT SHIFT is Present. MCH (RBC) [Entitic mass] 34.4 pg 27.0-32.0 [facility] Nucleated RBC/100 WBC (Bld) [Ratio] 0.8 % 0-5 [facility] MCHC Auto (RBC) [Mass/Vol]Or dered By: Carol Chiu on 12-17-2022 MCHC (RBC) [Mass/Vol] 33.7 g/dL 32-36 [facility] No Panel InformationOrdered By: Carol Chiu on 12-17-2022 Estimated Creatinine Clearance Calc 51.97 ml/min [facility] Estimated GFR (MDRD) Amer 55 mL/min >60 [facility] Comment on above: GFR Calc Estimated GFR (MDRD) Non-Af Amer 46 mL/min >60 [facility] Comment on above: Non- GFR Calc Platelets bldOrdered By: Lina Chiu on 12-17-2022 Platelets (Bld) [#/Vol] 193 10*3/uL 150-450 [facility] Serum or plasma calcium cory urement (mass/volume)Ordered By: Carol Chiu on 12-17-2022 Calcium [Mass/Vol] 9.3 mg/dL 8.5-10.1 [facility] Serum or plasma creatinine m easurement (mass/volume)Ordered By: Carol Chiu on 12-17-2022 Creatinine [Mass/Vol] 1.65 mg/dL 0.70-1.30 [facility] Comment on above: The validity of the calculated GFR & GFRAA in patients over 70 years has not been determined. Clinical correlation is essential. Serum or plasma urea nitroge n measurement (mass/volume)Ordered By: Carol Chiu on 12-17-2022 Urea nitrogen [Mass/Vol] 19 mg/dL 7-18 [facility] Thin prep Papanicolaou smear with manual screeningOrdered By: Carol Chiu on 12-17-2022 Thin prep Papanicolaou smear with manual screening 5 5-15 [facility] Blood manual differential co mment interpretation (narrative result)Ordered By: Marquise Padilla on 12-16-2022 Manual differential comment Piyush (Bld) [Interp] SCANNED [facility] Laboratory - Hematology and Cell countsOrdered By: Marquise Padilla on 12-16-2022 Anisocytosis Ql (Bld) 2+ [facility] Macrocytes detectionOrdered By: Marquise Padilla on 12-16-2022 Macrocytes Ql (Bld) 2+ [facility] Laboratory - Chemistry and C hemistry - challengeOrdered By: Speedy Bass on 12-15-2022 Natriuretic peptide B (Bld) [Mass/Vol] 574.1 pg/mL 0-100 [facility] No Panel InformationOrdered By: Marquise Padilla on 12-15-2022 Streptococcus pneumoniae Antigen (M [facility] Streptococcus pneumoniae Antigen (M [facility] No Panel InformationOrdered By: Speedy Bass on 12-15-2022 Troponin I High Sensitivity 40 pg/mL 3.0-78.0 [facility] Comment on above: Please Note: New [place] t Units and Gender Specific Reference Ranges. For more information see Policy Stat Procedure [place] High Sensitivity Troponin (TNIH) and attachments. Urine Legionella pneumophila antigen detectionOrdered By: Marquise Padilla on 12-15-2022 L. pneumophila Ag Ql (U) [facility] L. pneumophila Ag Ql (U) [facility] Basophil percentageOrdered B y: Jose Ramon Turner on 11-12-2022 Chloride [Moles/Vol] 106 mmol/L 98-107 [facility] Glucose [Mass/Vol] 89 mg/dL 74-106 [facility] Potassium [Moles/Vol] 3.9 mmol/L 3.5-5.1 [facility] Comment on above: Slight Hemolysis, Re sult may be falsely increased. Sodium [Moles/Vol] 138 mmol/L 136-145 [facility] WBC (Bld) [#/Vol] 5.4 10*3/uL 4.4-11.0 [facility] Blood erythrocytes count (nu mber/volume)Ordered By: Jose Ramon Turner on 11-12-2022 RBC (Bld) [#/Vol] 4.08 10*6/uL 4.6-6.2 [facility] Blood hemoglobin measurement (mass/volume)Ordered By: Jose Ramon Turner on 11-12-2022 Hemoglobin (Bld) [Mass/Vol] 14.2 g/dL 13.0-16.5 [facility] Blood manual differential co mment interpretation (narrative result)Ordered By: Jose Ramon Turner on 11-12-2022 Manual differential comment Piyush (Bld) [Interp] SCANNED [facility] Comment on above: 2+ ANISOCYTOSIS2+ MA CROCYTOSIS Blood platelet mean volumeOr dered By: Jose Ramon Turner on 11-12-2022 Platelet mean volume (Bld) [Entitic vol] 10.9 fL 6.2-12.0 [facility] Determination of erythrocyte mean corpuscular volume (MCV)Ordered By: Jose Ramon Turner on 11-12-2022 MCV (RBC) [Entitic vol] 105.1 fL 80-94 [facility] Hematocrit Auto (Bld) [Volum e fraction]Ordered By: Jose Ramon Turner on 11-12-2022 Hematocrit (Bld) [Volume fraction] 42.9 % 40-54 [facility] Laboratory - Chemistry and C hemistry - challengeOrdered By: Jose Ramon Turner on 11-12-2022 Natriuretic peptide B (Bld) [Mass/Vol] 255.5 pg/mL 0-100 [facility] CO2 [Moles/Vol] 27.0 mmol/L 21.0-32.0 [facility] Urea nitrogen/Creatinine [Mass ratio] 9.8 mg/mg 10-20 [facility] Laboratory - Hematology and Cell countsOrdered By: Jose Ramon Turner on 11-12-2022 Erythrocyte distribution width (RBC) [Entitic vol] 69.2 fL 35.1-43.9 [facility] Erythrocyte distribution width (RBC) [Ratio] 17.9 % 11.6-14.6 [facility] MCH (RBC) [Entitic mass] 34.8 pg 27.0-32.0 [facility] MCHC Auto (RBC) [Mass/Vol]Or dered By: Jose Ramon Turner on 11-12-2022 MCHC (RBC) [Mass/Vol] 33.1 g/dL 32-36 [facility] No Panel InformationOrdered By: Jose Ramon Turner on 11-12-2022 Estimated GFR (MDRD) Amer 52 mL/min >60 [facility] Comment on above: GFR Calc Estimated GFR (MDRD) Non-Af Amer 43 mL/min >60 [facility] Comment on above: Non- GFR Calc Platelets bldOrdered By: Bruce Turner on 11-12-2022 Platelets (Bld) [#/Vol] 242 10*3/uL 150-450 [facility] Serum or plasma calcium cory urement (mass/volume)Ordered By: Jose Ramon Turner on 11-12-2022 Calcium [Mass/Vol] 9.0 mg/dL 8.5-10.1 [facility] Serum or plasma creatinine m easurement (mass/volume)Ordered By: Jose Ramon Turner on 11-12-2022 Creatinine [Mass/Vol] 1.73 mg/dL 0.70-1.30 [facility] Comment on above: The validity of the calculated GFR & GFRAA in patients over 70 years has not been determined. Clinical correlation is essential. Serum or plasma urea nitroge n measurement (mass/volume)Ordered By: Jose Ramon Turner on 11-12-2022 Urea nitrogen [Mass/Vol] 17 mg/dL 7-18 [facility] Thin prep Papanicolaou smear with manual screeningOrdered By: Jose Ramon Turner on 11-12-2022 Thin prep Papanicolaou smear with manual screening 5 5-15 [facility] Absolute lymphocyte countOrd ered By: Dangelo Botello on 09-03-2022 Lymphocytes Auto (Unsp spec) [#/Vol] 0.99 10*3/uL 0.83-4.51 [facility] Basophil percentageOrdered B y: Dangelo Botello on 09-03-2022 Basophils/100 WBC (Bld) 0.3 % 0-1 [facility] Bilirubin [Mass/Vol] 0.60 mg/dL 0.20-1.00 [facility] Comment on above: For patients on eltr ombopag therapy, use of Dimension [place] TBIL is not recommended. Chloride [Moles/Vol] 102 mmol/L 98-107 [facility] Eosinophils/100 WBC (Bld) 0.2 % 0-5 [facility] Glucose [Mass/Vol] 110 mg/dL 74-106 [facility] Comment on above: Fasting Glucose resu lt from 100 to 125 mg/dL suggests IMPAIRED HOMEOSTASIS per A.D.A. criteria. LDH [Catalytic activity/Vol] 288 U/L 87-241 [facility] Neutrophils (Bld) [#/Vol] 5.0 10*3/uL 2.0-7.7 [facility] Neutrophils/100 WBC (Bld) 77.5 % 47-70 [facility] Potassium [Moles/Vol] 3.6 mmol/L 3.5-5.1 [facility] Protein [Mass/Vol] 7.2 g/dL 6.4-8.2 [facility] Sodium [Moles/Vol] 136 mmol/L 136-145 [facility] WBC (Bld) [#/Vol] 6.4 10*3/uL 4.4-11.0 [facility] Blood erythrocytes count (nu mber/volume)Ordered By: Dangelo Botello on 09-03-2022 RBC (Bld) [#/Vol] 4.37 10*6/uL 4.6-6.2 [facility] Blood hemoglobin measurement (mass/volume)Ordered By: Dangelo Botello on 09-03-2022 Hemoglobin (Bld) [Mass/Vol] 15.2 g/dL 13.0-16.5 [facility] Blood lymphocytes/100 leukoc ytesOrdered By: Dangelo Botello on 09-03-2022 Lymphocytes/100 WBC (Bld) 15.4 % 19-41 [facility] Blood monocytes/100 leukocyt esOrdered By: Dangelo Botello on 09-03-2022 Monocytes/100 WBC (Bld) 6.1 % 0-10 [facility] Blood platelet mean volumeOr dered By: Dangelo Botello on 09-03-2022 Platelet mean volume (Bld) [Entitic vol] 10.0 fL 6.2-12.0 [facility] Determination of erythrocyte mean corpuscular volume (MCV)Ordered By: Dangelo Botello on 09-03-2022 MCV (RBC) [Entitic vol] 100.7 fL 80-94 [facility] Hematocrit Auto (Bld) [Volum e fraction]Ordered By: Dangelo Pagan on 09-03-2022 Hematocrit (Bld) [Volume fraction] 44.0 % 40-54 [facility] Laboratory - Chemistry and C hemistry - challengeOrdered By: [facility] on 09-03-2022 ALP [Catalytic activity/Vol] 76 U/L 45-117 [facility] ALT [Catalytic activity/Vol] 52 U/L 16-61 [facility] CO2 [Moles/Vol] 28.0 mmol/L 21.0-32.0 [facility] Globulin (S) [Mass/Vol] 4.1 g/dL 2.2-4.2 [facility] Urea nitrogen/Creatinine [Mass ratio] 9.5 mg/mg 10-20 [facility] Laboratory - Hematology and Cell countsOrdered By: [facility] on 09-03-2022 Anisocytosis Ql (Bld) 1+ [facility] Erythrocyte distribution width (RBC) [Entitic vol] 68.4 fL 35.1-43.9 [facility] Erythrocyte distribution width (RBC) [Ratio] 18.4 % 11.6-14.6 [facility] Immature granulocytes/100 WBC (Bld) 0.500 % 0.0-0.9 [facility] Comment on above: IG% - Immature Granu locytes (promyelocytes, myelocytes and metamyelocytes) > 1% indicates that a LEFT SHIFT is Present. MCH (RBC) [Entitic mass] 34.8 pg 27.0-32.0 [facility] Nucleated RBC/100 WBC (Bld) [Ratio] 0.5 % 0-5 [facility] MCHC Auto (RBC) [Mass/Vol]Or dered By: Dangelo Botello on 09-03-2022 MCHC (RBC) [Mass/Vol] 34.5 g/dL 32-36 [facility] No Panel InformationOrdered By: Dangelo Botello on 09-03-2022 Estimated Creatinine Clearance Calc 47.91 ml/min [facility] Estimated GFR (MDRD) Amer 50 mL/min >60 [facility] Comment on above: GFR Calc Estimated GFR (MDRD) Non-Af Amer 42 mL/min >60 [facility] Comment on above: Non- GFR Calc Platelets bldOrdered By: Jose Botello on 09-03-2022 Platelets (Bld) [#/Vol] 241 10*3/uL 150-450 [facility] Serum or plasma albumin cory urement (mass/volume)Ordered By: Dangelo Botello on 09-03-2022 Albumin [Mass/Vol] 3.1 g/dL 3.2-5.0 [facility] Serum or plasma albumin/glob ulin mass ratioOrdered By: Dangelo Botello on 09-03-2022 Albumin/Globulin [Mass ratio] 0.8 {ratio} 0.9-2.4 [facility] Serum or plasma calcium cory urement (mass/volume)Ordered By: Dangelo Botello on 09-03-2022 Calcium [Mass/Vol] 9.2 mg/dL 8.5-10.1 [facility] Serum or plasma creatinine m easurement (mass/volume)Ordered By: Dangelo Botello on 09-03-2022 Creatinine [Mass/Vol] 1.79 mg/dL 0.70-1.30 [facility] Comment on above: The validity of the calculated GFR & GFRAA in patients over 70 years has not been determined. Clinical correlation is essential. Serum or plasma urea nitroge n measurement (mass/volume)Ordered By: Dangelo Botello on 09-03-2022 Urea nitrogen [Mass/Vol] 17 mg/dL 7-18 [facility] Thin prep Papanicolaou smear with manual screeningOrdered By: Dangelo Botello on 09-03-2022 Thin prep Papanicolaou smear with manual screening 36 U/L 15-37 [facility] Thin prep Papanicolaou smear with manual screening 6 5-15 [facility] Absolute lymphocyte countOrd ered By: Dr. Wei on 06-29-2022 Lymphocytes Auto (Unsp spec) [#/Vol] 0.27 10*3/uL 0.83-4.51 [facility] Basophil percentageOrdered B y: Dr. Wei on 06-29-2022 Basophils/100 WBC (Bld) 0.1 % 0-1 [facility] Chloride [Moles/Vol] 107 mmol/L 98-107 [facility] Eosinophils/100 WBC (Bld) 0.0 % 0-5 [facility] Glucose [Mass/Vol] 210 mg/dL 74-106 [facility] Comment on above: Glucose result great er than or equal to 200 mg/dLsuggests DIABETES MELLITUS per A.D.A. criteria. Neutrophils (Bld) [#/Vol] 8.6 10*3/uL 2.0-7.7 [facility] Neutrophils/100 WBC (Bld) 91.8 % 47-70 [facility] Potassium [Moles/Vol] 3.9 mmol/L 3.5-5.1 [facility] Sodium [Moles/Vol] 137 mmol/L 136-145 [facility] WBC (Bld) [#/Vol] 9.3 10*3/uL 4.4-11.0 [facility] Basophil percentageOrdered B y: Dr. Lu on 06-29-2022 Cholesterol [Mass/Vol] 126 mg/dL <200 [facility] Comment on above: <200 mg/dL Desirable 200-240 mg/dL Borderline >240 mg/dL High Risk Triglyceride [Mass/Vol] 60 mg/dL <199 [facility] Comment on above: The drugs N-Acetylcy steine and Metamizole may falsely depress this assay.Serum Triglycerides Reference Interval Normal <150 mg/dL Borderline high 150 - 199 mg/dL High 200 - 499 mg/dL Very High > or = 500 mg/dL Blood erythrocytes count (nu mber/volume)Ordered By: Dr. Wei on 06-29-2022 RBC (Bld) [#/Vol] 4.28 10*6/uL 4.6-6.2 [facility] Blood hemoglobin measurement (mass/volume)Ordered By: Dr. Wei on 06-29-2022 Hemoglobin (Bld) [Mass/Vol] 14.4 g/dL 13.0-16.5 [facility] Blood lymphocytes/100 leukoc ytesOrdered By: Dr. Wei on 06-29-2022 Lymphocytes/100 WBC (Bld) 2.9 % 19-41 [facility] Blood manual differential co mment interpretation (narrative result)Ordered By: Dr. Wei on 06-29-2022 Manual differential comment Piyush (Bld) [Interp] SCANNED [facility] Comment on above: LYMPHOPENIA Blood monocytes/100 leukocyt esOrdered By: Dr. Wei on 06-29-2022 Monocytes/100 WBC (Bld) 4.4 % 0-10 [facility] Blood platelet mean volumeOr dered By: Dr. Wei on 06-29-2022 Platelet mean volume (Bld) [Entitic vol] 11.4 fL 6.2-12.0 [facility] Determination of erythrocyte mean corpuscular volume (MCV)Ordered By: Dr. Wei on 06-29-2022 MCV (RBC) [Entitic vol] 101.9 fL 80-94 [facility] Hematocrit Auto (Bld) [Volum e fraction]Ordered By: Dr. Wei on 06-29-2022 Hematocrit (Bld) [Volume fraction] 43.6 % 40-54 [facility] Laboratory - Chemistry and C hemistry - challengeOrdered By: Dr. Wei on 06-29-2022 CO2 [Moles/Vol] 27.0 mmol/L 21.0-32.0 [facility] Urea nitrogen/Creatinine [Mass ratio] 16.2 mg/mg 10-20 [facility] Laboratory - Hematology and Cell countsOrdered By: Dr. Wei on 06-29-2022 Anisocytosis Ql (Bld) 2+ [facility] Erythrocyte distribution width (RBC) [Entitic vol] 66.1 fL 35.1-43.9 [facility] Erythrocyte distribution width (RBC) [Ratio] 18.0 % 11.6-14.6 [facility] Immature granulocytes/100 WBC (Bld) 0.800 % 0.0-0.9 [facility] Comment on above: IG% - Immature Granu locytes (promyelocytes, myelocytes and metamyelocytes) > 1% indicates that a LEFT SHIFT is Present. MCH (RBC) [Entitic mass] 33.6 pg 27.0-32.0 [facility] Nucleated RBC/100 [facility] (Bld) [[facility]] 2[facility]7 [facility] [Mass/Vol]Or dered By: Dr. Wei on 06-29-2022 MCHC (RBC) [Mass/Vol] 33.0 g/dL 32-36 [facility] No Panel InformationOrdered By: Dr. Wei on 06-29-2022 Estimated Creatinine Clearance Calc 55.69 ml/min [facility] Estimated GFR (MDRD) Amer 60 mL/min >60 [facility] Comment on above: GFR Calc Estimated GFR (MDRD) Non-Af Amer 50 mL/min >60 [facility] Comment on above: Non- GFR Calc Platelets bldOrdered By: Dr. Wei on 06-29-2022 Platelets (Bld) [#/Vol] 191 10*3/uL 150-450 [facility] Serum or plasma calcium cory urement (mass/volume)Ordered By: Dr. Wei on 06-29-2022 Calcium [Mass/Vol] 9.1 mg/dL 8.5-10.1 [facility] Serum or plasma cholesterol in HDL measurement (mass/volume)Ordered By: Dr. Lu on 06-29-2022 Cholesterol in HDL [Mass/Vol] 54 mg/dL >40 [facility] Comment on above: The drugs N-Acetylcy steine and Metamizole may falsely depress this assay. Reference Range HDL <40 mg/dL Low HDL Cholesterol HDL >or= 60 mg/dL High HDL Cholesterol Serum or plasma cholesterol in VLDL measurement (mass/volume)Ordered By: Dr. Lu on 06-29-2022 Cholesterol in VLDL [Mass/Vol] 12 mg/dL 5-40 [facility] Serum or plasma creatinine m easurement (mass/volume)Ordered By: Dr. Wei on 06-29-2022 Creatinine [Mass/Vol] 1.54 mg/dL 0.70-1.30 [facility] Comment on above: The validity of the calculated GFR & GFRAA in patients over 70 years has not been determined. Clinical correlation is essential. Serum or plasma low density lipoprotein (LDL) cholesterol measurement (mass/volume)Ordered By: Dr. Lu on 06-29-2022 Cholesterol in LDL [Mass/Vol] 60 mg/dL 0-130 [facility] Serum or plasma urea nitroge n measurement (mass/volume)Ordered By: Dr. Wei on 06-29-2022 Urea nitrogen [Mass/Vol] 25 mg/dL 7-18 [facility] Thin prep Papanicolaou smear with manual screeningOrdered By: Dr. Wei on 06-29-2022 Thin prep Papanicolaou smear with manual screening 3 5-15 [facility] Basophil percentageOrdered B y: Dr. Lu on 06-28-2022 Bilirubin [Mass/Vol] 0.80 mg/dL 0.20-1.00 [facility] Comment on above: For patients on eltr ombopag therapy, use of Dimension [place] TBIL is not recommended. Protein [Mass/Vol] 6.7 g/dL 6.4-8.2 [facility] Blood polychromasia detectio n by light microscopyOrdered By: Dr. Lu on 06-28-2022 Polychromasia LM Ql (Bld) RARE [facility] INR in Blood by Coagulation assayOrdered By: Dr. Lu on 06-28-2022 INR Coag (Bld) [Relative time] 2.1 {INR} [facility] Laboratory - Chemistry and C hemistry - challengeOrdered By: Dr. Lu on 06-28-2022 ALP [Catalytic activity/Vol] 111 U/L 45-117 [facility] ALT [Catalytic activity/Vol] 146 U/L 16-61 [facility] Globulin (S) [Mass/Vol] 3.6 g/dL 2.2-4.2 [facility] Magnesium [Mass/Vol] 2.1 mg/dL 1.6-2.6 [facility] Laboratory - CoagulationOrde red By: Dr. Lu on 06-28-2022 PT Coag (PPP) [Time] 22.9 s 11.7-14.9 [facility] Laboratory - Microbiology an d Antimicrobial susceptibilityOrdered By: Estelita Lu on 06-28-2022 Respiratory pathogens DNA and RNA 12b panel SANDOVAL+probe (Unsp spec) [facility] - Microbiology an d Antimicrobial susceptibilityOrdered By: Dr. Lu on 06-28-2022 Respiratory pathogens DNA and RNA 12b panel SANDOVAL+probe (Unsp spec) [facility] Macrocytes detectionOrdered By: Dr. Lu on 06-28-2022 Macrocytes Ql (Bld) 1+ [facility] No Panel InformationOrdered By: Dr. Lu on 06-28-2022 Troponin I High Sensitivity 87 pg/mL 3.0-78.0 [facility] Comment on above: Please Note: New [place] t Units and Gender Specific Reference Ranges. For more information see Policy Stat Procedure [place] High Sensitivity Troponin (TNIH) and attachments. Thyroid Stimulating Hormone (TSH) 2.20 uIU/mL 0.358-3.74 [facility] Ovalocyte detectionOrdered B y: Dr. Lu on 06-28-2022 Ovalocytes LM Ql (Bld) RARE [facility] Serum or plasma albumin cory urement (mass/volume)Ordered By: Dr. Lu on 06-28-2022 Albumin [Mass/Vol] 3.1 g/dL 3.2-5.0 [facility] Serum or plasma albumin/glob ulin mass ratioOrdered By: Dr. Lu on 06-28-2022 Albumin/Globulin [Mass ratio] 0.9 {ratio} 0.9-2.4 [facility] Serum procalcitonin measurem entOrdered By: Dr. Lu on 06-28-2022 Procalcitonin [Mass/Vol] 0.09 ng/mL 0.00-0.09 [facility] Comment on above: A procalcitonin (PCT ) [...] smear with manual screening 130 U/L 15-37 [facility] Absolute lymphocyte countOrd ered By: Dr. Ennis on 06-27-2022 Lymphocytes Auto (Unsp spec) [#/Vol] 0.93 10*3/uL 0.83-4.51 [facility] Basophil percentageOrdered B y: Dr. Lu on 06-27-2022 Basophil percentage 2.8 mg/dL 2.5-4.9 [facility] Basophil percentageOrdered B y: Dr. Ennis on 06-27-2022 Basophils/100 WBC (Bld) 0.4 % 0-1 [facility] Chloride [Moles/Vol] 109 mmol/L 98-107 [facility] Eosinophils/100 WBC (Bld) 0.5 % 0-5 [facility] Glucose [Mass/Vol] 127 mg/dL 74-106 [facility] Comment on above: Fasting Glucose resu lt greater than or equal to 126 mg/dL suggests DIABETES MELLITUS per A.D.A. criteria. Neutrophils (Bld) [#/Vol] 4.2 10*3/uL 2.0-7.7 [facility] Neutrophils/100 WBC (Bld) 75.4 % 47-70 [facility] Potassium [Moles/Vol] 3.5 mmol/L 3.5-5.1 [facility] Sodium [Moles/Vol] 140 mmol/L 136-145 [facility] WBC (Bld) [#/Vol] 5.5 10*3/uL 4.4-11.0 [facility] Blood erythrocytes count (nu mber/volume)Ordered By: Dr. Ennis on 06-27-2022 RBC (Bld) [#/Vol] 4.24 10*6/uL 4.6-6.2 [facility] Blood hemoglobin measurement (mass/volume)Ordered By: Dr. Ennis on 06-27-2022 Hemoglobin (Bld) [Mass/Vol] 14.6 g/dL 13.0-16.5 [facility] Blood lymphocytes/100 leukoc ytesOrdered By: Dr. Ennis on 04-22-2023 Lymphocytes/100 WBC (Bld) 16.8 % 19-41 [facility] Blood manual differential co mment interpretation (narrative result)Ordered By: Dr. Ennis on 06-27-2022 Manual differential comment Piyush (Bld) [Interp] SCANNED [facility] Blood monocytes/100 leukocyt esOrdered By: Dr. Ennis on 06-27-2022 Monocytes/100 WBC (Bld) 6.0 % 0-10 [facility] Blood platelet mean volumeOr dered By: Dr. Ennis on 06-27-2022 Platelet mean volume (Bld) [Entitic vol] 11.2 fL 6.2-12.0 [facility] Determination of erythrocyte mean corpuscular volume (MCV)Ordered By: Dr. Ennis on 06-27-2022 MCV (RBC) [Entitic vol] 103.3 fL 80-94 [facility] Hematocrit Auto (Bld) [Volum e fraction]Ordered By: Dr. Ennis on 06-27-2022 Hematocrit (Bld) [Volume fraction] 43.8 % 40-54 [facility] INR in Blood by Coagulation assayOrdered By: Dr. Ennis on 06-27-2022 INR Coag (Bld) [Relative time] 2.0 {INR} [facility] Laboratory - Chemistry and C hemistry - challengeOrdered By: Dr. Ennis on 06-27-2022 CO2 [Moles/Vol] 26.0 mmol/L 21.0-32.0 [facility] Natriuretic peptide B (Bld) [Mass/Vol] 278.3 pg/mL 0-100 [facility] Urea nitrogen/Creatinine [Mass ratio] 14.7 mg/mg 10-20 [facility] Laboratory - CoagulationOrde red By: Dr. Ennis on 06-27-2022 aPTT Coag (Bld) [Time] 46.5 s 24.1-36.2 [facility] PT Coag (PPP) [Time] 22.5 s 11.7-14.9 [facility] Laboratory - Hematology and Cell countsOrdered By: Dr. Ennis on 06-27-2022 Anisocytosis Ql (Bld) 2+ [facility] Erythrocyte distribution width (RBC) [Entitic vol] 67.8 fL 35.1-43.9 [facility] Erythrocyte distribution width (RBC) [Ratio] 17.9 % 11.6-14.6 [facility] Immature granulocytes/100 WBC (Bld) 0.900 % 0.0-0.9 [facility] Comment on above: IG% - Immature Granu locytes (promyelocytes, myelocytes and metamyelocytes) > 1% indicates that a LEFT SHIFT is Present. MCH (RBC) [Entitic mass] 34.4 pg 27.0-32.0 [facility] Nucleated RBC/100 WBC (Bld) [Ratio] 2.9 % 0-5 [facility] MCHC Auto (RBC) [Mass/Vol]Or dered By: Dr. Ennis on 06-27-2022 MCHC (RBC) [Mass/Vol] 33.3 g/dL 32-36 [facility] Macrocytes detectionOrdered By: Dr. Ennis on 06-27-2022 Macrocytes Ql (Bld) 2+ [facility] No Panel InformationOrdered By: Dr. Ennis on 06-27-2022 Estimated Creatinine Clearance Calc 46.61 ml/min [facility] Estimated GFR (MDRD) Amer 49 mL/min >60 [facility] Comment on above: GFR Calc Estimated GFR (MDRD) Non-Af Amer 40 mL/min >60 [facility] Comment on above: Non- GFR Calc Troponin I High Sensitivity 92 pg/mL 3.0-78.0 [facility] Comment on above: Please Note: New [place] t Units and Gender Specific Reference Ranges. For more information see Policy Stat Procedure [place] High Sensitivity Troponin (TNIH) and attachments. Platelets bldOrdered By: Dr. Ennis on 06-27-2022 Platelets (Bld) [#/Vol] 201 10*3/uL 150-450 [facility] Serum or plasma calcium cory urement (mass/volume)Ordered By: Dr. Ennis on 06-27-2022 Calcium [Mass/Vol] 8.9 mg/dL 8.5-10.1 [facility] Serum or plasma creatinine m easurement (mass/volume)Ordered By: Dr. Ennis on 06-27-2022 Creatinine [Mass/Vol] 1.84 mg/dL 0.70-1.30 [facility] Comment on above: The validity of the calculated GFR & GFRAA in patients over 70 years has not been determined. Clinical correlation is essential. Serum or plasma urea nitroge n measurement (mass/volume)Ordered By: Dr. Ennis on 06-27-2022 Urea nitrogen [Mass/Vol] 27 mg/dL 7-18 [facility] Thin prep Papanicolaou smear with manual screeningOrdered By: Dr. Ennis on 06-27-2022 Thin prep Papanicolaou smear with manual screening 5 5-15 [facility] Basophil percentageOrdered B y: Dr. Che on 05-20-2022 Chloride [Moles/Vol] 103 mmol/L 98-107 [facility] Glucose [Mass/Vol] 170 mg/dL 74-106 [facility] Comment on above: Fasting Glucose resu lt greater than or equal to 126 mg/dL suggests DIABETES MELLITUS per A.D.A. criteria. Potassium [Moles/Vol] 3.3 mmol/L 3.5-5.1 [facility] Sodium [Moles/Vol] 140 mmol/L 136-145 [facility] INR in Blood by Coagulation assayOrdered By: Dr. Dukes on 05-20-2022 INR Coag (Bld) [Relative time] 2.7 {INR} [facility] Laboratory - Chemistry and C hemistry - challengeOrdered By: Dr. Che on 05-20-2022 CO2 [Moles/Vol] 30.0 mmol/L 21.0-32.0 [facility] Urea nitrogen/Creatinine [Mass ratio] 11.8 mg/mg 10-20 [facility] Laboratory - CoagulationOrde red By: Dr. Dukes on 05-20-2022 PT Coag (PPP) [Time] 28.3 s 11.7-14.9 [facility] No Panel InformationOrdered By: Dr. Che on 05-20-2022 Estimated Creatinine Clearance Calc 48.18 ml/min [facility] Estimated GFR (MDRD) Amer 51 mL/min >60 [facility] Comment on above: GFR Calc Estimated GFR (MDRD) Non-Af Amer 42 mL/min >60 [facility] Comment on above: Non- GFR Calc Serum or plasma calcium cory urement (mass/volume)Ordered By: Dr. Che on 05-20-2022 Calcium [Mass/Vol] 8.8 mg/dL 8.5-10.1 [facility] Serum or plasma creatinine m easurement (mass/volume)Ordered By: Dr. Che on 05-20-2022 Creatinine [Mass/Vol] 1.78 mg/dL 0.70-1.30 [facility] Comment on above: The validity of the calculated GFR & GFRAA in patients over 70 years has not been determined. Clinical correlation is essential. Serum or plasma urea nitroge n measurement (mass/volume)Ordered By: Dr. Che on 05-20-2022 Urea nitrogen [Mass/Vol] 21 mg/dL 7-18 [facility] Thin prep Papanicolaou smear with manual screeningOrdered By: Dr. Che on 05-20-2022 Thin prep Papanicolaou smear with manual screening 7 -15 [facility] Absolute lymphocyte countOrd ered By: Dr. Dukes on 05-19-2022 Lymphocytes Auto (Unsp spec) [#/Vol] 0.92 10*3/uL 0.83-4.51 [facility] Basophil percentageOrdered B y: Dr. Dukes on 05-19-2022 Basophils/100 WBC (Bld) 0.2 % 0-1 [facility] Bilirubin [Mass/Vol] 0.70 mg/dL 0.20-1.00 [facility] Comment on above: For patients on eltr ombopag therapy, use of Dimension [place] TBIL is not recommended. Eosinophils/100 WBC (Bld) 0.5 % 0-5 [facility] Neutrophils (Bld) [#/Vol] 5.0 10*3/uL 2.0-7.7 [facility] Neutrophils/100 WBC (Bld) 80.2 % 47-70 [facility] Protein [Mass/Vol] 6.4 g/dL 6.4-8.2 [facility] WBC (Bld) [#/Vol] 6.2 10*3/uL 4.4-11.0 [facility] Blood erythrocytes count (nu mber/volume)Ordered By: Dr. Dukes on 05-19-2022 RBC (Bld) [#/Vol] 3.95 10*6/uL 4.6-6.2 [facility] Blood hemoglobin measurement (mass/volume)Ordered By: Dr. Dukes on 05-19-2022 Hemoglobin (Bld) [Mass/Vol] 13.5 g/dL 13.0-16.5 [facility] Blood lymphocytes/100 leukoc ytesOrdered By: Dr. Dukes on 05-19-2022 Lymphocytes/100 WBC (Bld) 14.8 % 19-41 [facility] Blood manual differential co mment interpretation (narrative result)Ordered By: Dr. Dukes on 05-19-2022 Manual differential comment Piyush (Bld) [Interp] SCANNED [facility] Blood monocytes/100 leukocyt esOrdered By: Dr. Dukes on 05-19-2022 Monocytes/100 WBC (Bld) 4.0 % 0-10 [facility] Blood platelet mean volumeOr dered By: Dr. Dukes on 05-19-2022 Platelet mean volume (Bld) [Entitic vol] 10.0 fL 6.2-12.0 [facility] Blood polychromasia detectio n by light microscopyOrdered By: Dr. Dukes on 05-19-2022 Polychromasia LM Ql (Bld) RARE [facility] Determination of erythrocyte mean corpuscular volume (MCV)Ordered By: Dr. Dukes on 05-19-2022 MCV (RBC) [Entitic vol] 104.1 fL 80-94 [facility] Hematocrit Auto (Bld) [Volum e fraction]Ordered By: Dr. Dukes on 05-19-2022 Hematocrit (Bld) [Volume fraction] 41.1 % 40-54 [facility] Laboratory - Chemistry and C hemistry - challengeOrdered By: Dr. Dukes on 05-19-2022 ALP [Catalytic activity/Vol] 64 U/L 45-117 [facility] ALT [Catalytic activity/Vol] 61 U/L 16-61 [facility] Globulin (S) [Mass/Vol] 3.4 g/dL 2.2-4.2 [facility] Magnesium [Mass/Vol] 2.1 mg/dL 1.6-2.6 [facility] Laboratory - Hematology and Cell countsOrdered By: Dr. Dukes on 05-19-2022 Anisocytosis Ql (Bld) 2+ [facility] Erythrocyte distribution width (RBC) [Entitic vol] 74.2 fL 35.1-43.9 [facility] Erythrocyte distribution width (RBC) [Ratio] 19.1 % 11.6-14.6 [facility] Immature granulocytes/100 WBC (Bld) 0.300 % 0.0-0.9 [facility] Comment on above: IG% - Immature Granu locytes (promyelocytes, myelocytes and metamyelocytes) > 1% indicates that a LEFT SHIFT is Present. MCH (RBC) [Entitic mass] 34.2 pg 27.0-32.0 [facility] Nucleated RBC/100 WBC (Bld) [Ratio] 0.6 % 0-5 [facility] Laboratory - Microbiology an d Antimicrobial susceptibilityOrdered By: Dr. Dukes on 05-19-2022 Respiratory pathogens DNA and RNA 12b panel SANDOVAL+probe (Unsp spec) [facility] MCHC Auto (RBC) [Mass/Vol]Or dered By: Dr. Dukes on 05-19-2022 MCHC (RBC) [Mass/Vol] 32.8 g/dL 32-36 [facility] Macrocytes detectionOrdered By: Dr. Dukes on 05-19-2022 Macrocytes Ql (Bld) 1+ [facility] No Panel InformationOrdered By: Dr. Dukes on 05-19-2022 Thyroid Stimulating Hormone (TSH) 1.31 uIU/mL 0.358-3.74 [facility] Ovalocyte detectionOrdered B y: Dr. Dukes on 05-19-2022 Ovalocytes LM Ql (Bld) RARE [facility] Platelets bldOrdered By: Dr. Dukes on 05-19-2022 Platelets (Bld) [#/Vol] 173 10*3/uL 150-450 [facility] Serum or plasma albumin cory urement (mass/volume)Ordered By: Dr. Dukes on 05-19-2022 Albumin [Mass/Vol] 3.0 g/dL 3.2-5.0 [facility] Serum or plasma albumin/glob ulin mass ratioOrdered By: Dr. Dukes on 05-19-2022 Albumin/Globulin [Mass ratio] 0.9 {ratio} 0.9-2.4 [facility] Thin prep Papanicolaou smear with manual screeningOrdered By: Dr. Dukes on 05-19-2022 Thin prep Papanicolaou smear with manual screening 38 U/L 15-37 [facility] Absolute lymphocyte countOrd ered By: Dr. Banda on 05-18-2022 Lymphocytes Auto (Unsp spec) [#/Vol] 0.87 10*3/uL 0.83-4.51 [facility] Basophil percentageOrdered B y: Dr. Banda on 05-18-2022 Basophils/100 WBC (Bld) 0.5 % 0-1 [facility] Chloride [Moles/Vol] 105 mmol/L 98-107 [facility] Eosinophils/100 WBC (Bld) 0.2 % 0-5 [facility] Glucose [Mass/Vol] 124 mg/dL 74-106 [facility] Comment on above: Fasting Glucose resu lt from 100 to 125 mg/dL suggests IMPAIRED HOMEOSTASIS per A.D.A. criteria. Neutrophils (Bld) [#/Vol] 5.3 10*3/uL 2.0-7.7 [facility] Neutrophils/100 WBC (Bld) 80.8 % 47-70 [facility] Potassium [Moles/Vol] 3.8 mmol/L 3.5-5.1 [facility] Comment on above: Slight Hemolysis, Re sult may be falsely increased. Sodium [Moles/Vol] 143 mmol/L 136-145 [facility] WBC (Bld) [#/Vol] 6.6 10*3/uL 4.4-11.0 [facility] Blood erythrocytes count (nu mber/volume)Ordered By: Dr. Banda on 05-18-2022 RBC (Bld) [#/Vol] 4.33 10*6/uL 4.6-6.2 [facility] Blood hemoglobin measurement (mass/volume)Ordered By: Dr. Banda on 05-18-2022 Hemoglobin (Bld) [Mass/Vol] 14.6 g/dL 13.0-16.5 [facility] Blood lymphocytes/100 leukoc ytesOrdered By: Dr. Banda on 05-18-2022 Lymphocytes/100 WBC (Bld) 13.3 % 19-41 [facility] Blood monocytes/100 leukocyt esOrdered By: Dr. Banda on 05-18-2022 Monocytes/100 WBC (Bld) 4.9 % 0-10 [facility] Blood platelet adequacy dete ction by light microscopyOrdered By: Dr. Banda on 05-18-2022 Platelets LM Ql (Bld) SLT DEC ADEQ [facility] Blood platelet mean volumeOr dered By: Dr. Banda on 05-18-2022 Platelet mean volume (Bld) [Entitic vol] 10.3 fL 6.2-12.0 [facility] CNPNon 05-18-2022 CNPN Telephone (CARMOB) ----- YEFRI YANEZ ([id number]) 1965 [address] [facility] Date Time Provider Department 05/18/22 SAYRA TELLO During your visit today, we recorded the following information about you: Abbey Nash 05/18/2022 8:28 AM Signed Received a records request from [facility]. Will pull and fax records. Abbey Nash 05/18/2022 10:51 AM Signed Faxed records to [facility] at [phone] Allergies As of Date: 05/18/2022 Noted Allergy [...] by this patient by: SPOUSE Safia Carr [facility] Problem List As Of Date 05/18/2022 Noted [...] Encounter Status:Closed by ABBEY NASH on 05/18/22 [facility] COVID-19 virus antigen assay Ordered By: Dr. Dukes on 05-18-2022 SARS-CoV-2 (COVID-19) Ag IA.rapid Ql (Resp) Not detected Not Detect [facility] Comment on above: Normal Reference Ran ge: [...] (RBC) [Entitic vol] 102.1 fL 80-94 [facility] Hematocrit Auto (Bld) [Volum e fraction]Ordered By: Dr. Banda on 05-18-2022 Hematocrit (Bld) [Volume fraction] 44.2 % 40-54 [facility] INR in Blood by Coagulation assayOrdered By: Dr. Banda on 05-18-2022 INR Coag (Bld) [Relative time] 2.8 {INR} [facility] Laboratory - Chemistry and C hemistry - challengeOrdered By: Dr. Banda on 05-18-2022 CO2 [Moles/Vol] 31.0 mmol/L 21.0-32.0 [facility] Natriuretic peptide B (Bld) [Mass/Vol] 343.5 pg/mL 0-100 [facility] Urea nitrogen/Creatinine [Mass ratio] 11.5 mg/mg 10-20 [facility] Laboratory - CoagulationOrde red By: Dr. Banda on 05-18-2022 PT Coag (PPP) [Time] 28.9 s 11.7-14.9 [facility] Laboratory - Hematology and Cell countsOrdered By: Dr. Banda on 05-18-2022 Anisocytosis Ql (Bld) 2+ [facility] Erythrocyte distribution width (RBC) [Entitic vol] 74.1 fL 35.1-43.9 [facility] Erythrocyte distribution width (RBC) [Ratio] 19.4 % 11.6-14.6 [facility] Immature granulocytes/100 WBC (Bld) 0.300 % 0.0-0.9 [facility] Comment on above: IG% - Immature Granu locytes (promyelocytes, myelocytes and metamyelocytes) > 1% indicates that a LEFT SHIFT is Present. MCH (RBC) [Entitic mass] 33.7 pg 27.0-32.0 [facility] Nucleated RBC/100 WBC (Bld) [Ratio] 0.6 % 0-5 [facility] Laboratory - Microbiology an d Antimicrobial susceptibilityOrdered By: Alicia Dukes on 05-18-2022 Respiratory pathogens DNA and RNA 12b panel SANDOVAL+probe (Unsp spec) [facility] MCHC Auto (RBC) [Mass/Vol]Or dered By: Dr. Banda on 05-18-2022 MCHC (RBC) [Mass/Vol] 33.0 g/dL 32-36 [facility] No Panel InformationOrdered By: Dr. Banda on 05-18-2022 Estimated Creatinine Clearance Calc 54.62 ml/min [facility] Estimated GFR (MDRD) Amer 59 mL/min >60 [facility] Comment on above: GFR Calc Estimated GFR (MDRD) Non-Af Amer 48 mL/min >60 [facility] Comment on above: Non- GFR Calc Troponin I High Sensitivity 73 pg/mL 3.0-78.0 [facility] Comment on above: Please Note: New [place] t Units and Gender Specific Reference Ranges. For more information see Policy Stat Procedure [place] High Sensitivity Troponin (TNIH) and attachments. Ovalocyte detectionOrdered B y: Dr. Banda on 05-18-2022 Ovalocytes LM Ql (Bld) 1+ [facility] Platelets bldOrdered By: Dr. Banda on 05-18-2022 Platelets (Bld) [#/Vol] 183 10*3/uL 150-450 [facility] Serum or plasma calcium cory urement (mass/volume)Ordered By: Dr. Banda on 05-18-2022 Calcium [Mass/Vol] 9.2 mg/dL 8.5-10.1 [facility] Serum or plasma creatinine m easurement (mass/volume)Ordered By: Dr. Banda on 05-18-2022 Creatinine [Mass/Vol] 1.57 mg/dL 0.70-1.30 [facility] Comment on above: The validity of the calculated GFR & GFRAA in patients over 70 years has not been determined. Clinical correlation is essential. Serum or plasma urea nitroge n measurement (mass/volume)Ordered By: Dr. Banda on 05-18-2022 Urea nitrogen [Mass/Vol] 18 mg/dL 7-18 [facility] Thin prep Papanicolaou smear with manual screeningOrdered By: Dr. Banda on 05-18-2022 Thin prep Papanicolaou smear with manual screening 7 5-15 [facility] Basophil percentageOrdered B y: Dr. Chiu on 04-16-2022 Chloride [Moles/Vol] 105 mmol/L 98-107 [facility] Glucose [Mass/Vol] 110 mg/dL 74-106 [facility] Comment on above: Fasting Glucose resu lt from 100 to 125 mg/dL suggests IMPAIRED HOMEOSTASIS per A.D.A. criteria. Potassium [Moles/Vol] 3.7 mmol/L 3.5-5.1 [facility] Sodium [Moles/Vol] 141 mmol/L 136-145 [facility] INR in Blood by Coagulation assayOrdered By: Dr. Cmaacho on 04-16-2022 INR Coag (Bld) [Relative time] 2.1 {INR} [facility] Laboratory - Chemistry and C hemistry - challengeOrdered By: Dr. Chiu on 04-16-2022 CO2 [Moles/Vol] 31.0 mmol/L 21.0-32.0 [facility] Urea nitrogen/Creatinine [Mass ratio] 17.2 mg/mg 10-20 [facility] Laboratory - CoagulationOrde red By: Dr. Camacho on 04-16-2022 PT Coag (PPP) [Time] 23.6 s 11.7-14.9 [facility] No Panel InformationOrdered By: Dr. Chiu on 04-16-2022 Estimated Creatinine Clearance Calc 49.19 ml/min [facility] Estimated GFR (MDRD) Amer 54 mL/min >60 [facility] Comment on above: GFR Calc Estimated GFR (MDRD) Non-Af Amer 45 mL/min >60 [facility] Comment on above: Non- GFR Calc Serum or plasma calcium cory urement (mass/volume)Ordered By: Dr. Chiu on 04-16-2022 Calcium [Mass/Vol] 9.0 mg/dL 8.5-10.1 [facility] Serum or plasma creatinine m easurement (mass/volume)Ordered By: Dr. Chiu on 04-16-2022 Creatinine [Mass/Vol] 1.69 mg/dL 0.70-1.30 [facility] Comment on above: The validity of the calculated GFR & GFRAA in patients over 70 years has not been determined. Clinical correlation is essential. Serum or plasma urea nitroge n measurement (mass/volume)Ordered By: Dr. Chiu on 04-16-2022 Urea nitrogen [Mass/Vol] 29 mg/dL 7-18 [facility] Thin prep Papanicolaou smear with manual screeningOrdered By: Dr. Chiu on 04-16-2022 Thin prep Papanicolaou smear with manual screening 5 5-15 [facility] Absolute lymphocyte countOrd ered By: Dr. Chiu on 04-15-2022 Lymphocytes Auto (Unsp spec) [#/Vol] 0.77 10*3/uL 0.83-4.51 [facility] Basophil percentageOrdered B y: Dr. Chiu on 04-15-2022 Basophil percentage 3.9 mg/dL 2.5-4.9 [facility] Basophils/100 WBC (Bld) 0.6 % 0-1 [facility] Cholesterol [Mass/Vol] 190 mg/dL <200 [facility] Comment on above: <200 mg/dL Desirable 200-240 mg/dL Borderline >240 mg/dL High Risk Eosinophils/100 WBC (Bld) 0.4 % 0-5 [facility] Neutrophils (Bld) [#/Vol] 3.8 10*3/uL 2.0-7.7 [facility] Neutrophils/100 WBC (Bld) 74.5 % 47-70 [facility] Triglyceride [Mass/Vol] 159 mg/dL <199 [facility] Comment on above: The drugs N-Acetylcy steine and Metamizole may falsely depress this assay.Serum Triglycerides Reference Interval Normal <150 mg/dL Borderline high 150 - 199 mg/dL High 200 - 499 mg/dL Very High > or = 500 mg/dL WBC (Bld) [#/Vol] 5.1 10*3/uL 4.4-11.0 [facility] Blood erythrocytes count (nu mber/volume)Ordered By: Dr. Chiu on 04-15-2022 RBC (Bld) [#/Vol] 3.92 10*6/uL 4.6-6.2 [facility] Blood hemoglobin measurement (mass/volume)Ordered By: Dr. Chiu on 04-15-2022 Hemoglobin (Bld) [Mass/Vol] 12.6 g/dL 13.0-16.5 [facility] Blood lymphocytes/100 leukoc ytesOrdered By: Dr. Chiu on 04-15-2022 Lymphocytes/100 WBC (Bld) 15.1 % 19-41 [facility] Blood monocytes/100 leukocyt esOrdered By: Dr. Chiu on 04-15-2022 Monocytes/100 WBC (Bld) 8.4 % 0-10 [facility] Blood platelet mean volumeOr dered By: Dr. Chiu on 04-15-2022 Platelet mean volume (Bld) [Entitic vol] 11.1 fL 6.2-12.0 [facility] Determination of erythrocyte mean corpuscular volume (MCV)Ordered By: Dr. Chiu on 04-15-2022 MCV (RBC) [Entitic vol] 98.2 fL 80-94 [facility] Hematocrit Auto (Bld) [Volum e fraction]Ordered By: Dr. Chiu on 04-15-2022 Hematocrit (Bld) [Volume fraction] 38.5 % 40-54 [facility] Laboratory - Chemistry and C hemistry - challengeOrdered By: Dr. Chiu on 04-15-2022 Magnesium [Mass/Vol] 2.1 mg/dL 1.6-2.6 [facility] Comment on above: Moderate Hemolysis, Result may be falsely increased. Laboratory - Hematology and Cell countsOrdered By: Dr. Chiu on 04-15-2022 Anisocytosis Ql (Bld) 2+ [facility] Erythrocyte distribution width (RBC) [Entitic vol] 73.5 fL 35.1-43.9 [facility] Erythrocyte distribution width (RBC) [Ratio] 20.7 % 11.6-14.6 [facility] Immature granulocytes/100 WBC (Bld) 1.000 % 0.0-0.9 [facility] Comment on above: IG% - Immature Granu locytes (promyelocytes, myelocytes and metamyelocytes) > 1% indicates that a LEFT SHIFT is Present. MCH (RBC) [Entitic mass] 32.1 pg 27.0-32.0 [facility] Nucleated RBC/100 WBC (Bld) [Ratio] 5.7 % 0-5 [facility] MCHC Auto (RBC) [Mass/Vol]Or dered By: Dr. Chiu on 04-15-2022 MCHC (RBC) [Mass/Vol] 32.7 g/dL 32-36 [facility] Macrocytes detectionOrdered By: Dr. Chiu on 04-15-2022 Macrocytes Ql (Bld) 1+ [facility] Platelets bldOrdered By: Dr. Chiu on 04-15-2022 Platelets (Bld) [#/Vol] 212 10*3/uL 150-450 [facility] Serum or plasma cholesterol in HDL measurement (mass/volume)Ordered By: Dr. Chiu on 04-15-2022 Cholesterol in HDL [Mass/Vol] 39 mg/dL >40 [facility] Comment on above: The drugs N-Acetylcy steine and Metamizole may falsely depress this assay. Reference Range HDL <40 mg/dL Low HDL Cholesterol HDL >or= 60 mg/dL High HDL Cholesterol Serum or plasma cholesterol in VLDL measurement (mass/volume)Ordered By: Dr. Chiu on 04-15-2022 Cholesterol in VLDL [Mass/Vol] 32 mg/dL 5-40 [facility] Serum or plasma low density lipoprotein (LDL) cholesterol measurement (mass/volume)Ordered By: Dr. Chiu on 04-15-2022 Cholesterol in LDL [Mass/Vol] 119 mg/dL 0-130 [facility] Basophil percentageOrdered B y: Dr. Camacho on 04-14-2022 Bilirubin [Mass/Vol] 1.20 mg/dL 0.20-1.00 [facility] Comment on above: For patients on eltr ombopag therapy, use of Dimension [place] TBIL is not recommended. Protein [Mass/Vol] 6.5 g/dL 6.4-8.2 [facility] Blood manual differential co mment interpretation (narrative result)Ordered By: Dr. Camacho on 04-14-2022 Manual differential comment Piyush (Bld) [Interp] SCANNED [facility] - Chemistry and C hemistry - challengeOrdered By: Dr. Camacho on 04-14-2022 ALP [Catalytic activity/Vol] 75 U/L 45-117 [facility] ALT [Catalytic activity/Vol] 46 U/L 16-61 [facility] Globulin (S) [Mass/Vol] 3.7 g/dL 2.2-4.2 [facility] No Panel InformationOrdered By: Dr. Camacho on 04-14-2022 Troponin I High Sensitivity 121 pg/mL 3.0-78.0 [facility] Comment on above: Critical Result(s) C alled at: 04:02:32 04/14/2022 by: CHERI Callahan RN ICU. Results read back by same. Please Note: New Test Units and Gender Specific Reference Ranges. For more information see Policy Stat Procedure [place] High Sensitivity Troponin (TNIH) and attachments. No Panel InformationOrdered By: ED PROVIDER on 04-14-2022 Troponin I High Sensitivity 133 pg/mL 3.0-78.0 [facility] Comment on above: Critical Result(s) C alled at: 00:45:24 04/14/2022 by: Mello KAUFFMAN RN (ED) Results read back by same. Please Note: New Test Units and Gender Specific Reference Ranges. For more information see Policy Stat Procedure [place] High Sensitivity Troponin (TNIH) and attachments. Serum or plasma albumin cory urement (mass/volume)Ordered By: Dr. Camacho on 04-14-2022 Albumin [Mass/Vol] 2.8 g/dL 3.2-5.0 [facility] Serum or plasma albumin/glob ulin mass ratioOrdered By: Dr. Camacho on 04-14-2022 Albumin/Globulin [Mass ratio] 0.8 {ratio} 0.9-2.4 [facility] Thin prep Papanicolaou smear with manual screeningOrdered By: Dr. Camacho on 04-14-2022 Thin prep Papanicolaou smear with manual screening 37 U/L 15-37 [facility] Absolute lymphocyte countOrd ered By: ED PROVIDER on 04-13-2022 Lymphocytes Auto (Unsp spec) [#/Vol] 0.72 10*3/uL 0.83-4.51 [facility] Absolute lymphocyte countOrd ered By: Dr. Turner on 04-13-2022 Lymphocytes Auto (Unsp spec) [#/Vol] 0.85 10*3/uL 0.83-4.51 [facility] Basophil percentageOrdered B y: ED PROVIDER on 04-13-2022 Basophils/100 WBC (Bld) 0.4 % 0-1 [facility] Chloride [Moles/Vol] 111 mmol/L 98-107 [facility] Eosinophils/100 WBC (Bld) 0.0 % 0-5 [facility] Glucose [Mass/Vol] 125 mg/dL 74-106 [facility] Comment on above: Fasting Glucose resu lt from 100 to 125 mg/dL suggests IMPAIRED HOMEOSTASIS per A.D.A. criteria. Neutrophils (Bld) [#/Vol] 4.5 10*3/uL 2.0-7.7 [facility] Neutrophils/100 WBC (Bld) 79.4 % 47-70 [facility] Potassium [Moles/Vol] 3.7 mmol/L 3.5-5.1 [facility] Sodium [Moles/Vol] 143 mmol/L 136-145 [facility] WBC (Bld) [#/Vol] 5.7 10*3/uL 4.4-11.0 [facility] Basophil percentageOrdered B y: Dr. Turner on 04-13-2022 Basophils/100 WBC (Bld) 0.3 % 0-1 [facility] Bilirubin [Mass/Vol] 1.80 mg/dL 0.20-1.00 [facility] Comment on above: For patients on eltr ombopag therapy, use of Dimension [place] TBIL is not recommended. Chloride [Moles/Vol] 108 mmol/L 98-107 [facility] Eosinophils/100 WBC (Bld) 0.3 % 0-5 [facility] Glucose [Mass/Vol] 108 mg/dL 74-106 [facility] Comment on above: Fasting Glucose resu lt from 100 to 125 mg/dL suggests IMPAIRED HOMEOSTASIS per A.D.A. criteria. Neutrophils (Bld) [#/Vol] 5.0 10*3/uL 2.0-7.7 [facility] Neutrophils/100 WBC (Bld) 78.6 % 47-70 [facility] Potassium [Moles/Vol] 3.5 mmol/L 3.5-5.1 [facility] Protein [Mass/Vol] 7.4 g/dL 6.4-8.2 [facility] Sodium [Moles/Vol] 143 mmol/L 136-145 [facility] WBC (Bld) [#/Vol] 6.4 10*3/uL 4.4-11.0 [facility] Blood erythrocytes count (nu mber/volume)Ordered By: ED PROVIDER on 04-13-2022 RBC (Bld) [#/Vol] 4.03 10*6/uL 4.6-6.2 [facility] Blood erythrocytes count (nu mber/volume)Ordered By: Dr. Turner on 04-13-2022 RBC (Bld) [#/Vol] 4.35 10*6/uL 4.6-6.2 [facility] Blood hemoglobin measurement (mass/volume)Ordered By: ED PROVIDER on 04-13-2022 Hemoglobin (Bld) [Mass/Vol] 12.8 g/dL 13.0-16.5 [facility] Blood hemoglobin measurement (mass/volume)Ordered By: Dr. Turner on 04-13-2022 Hemoglobin (Bld) [Mass/Vol] 13.9 g/dL 13.0-16.5 [facility] Blood lymphocytes/100 leukoc ytesOrdered By: ED PROVIDER on 04-13-2022 Lymphocytes/100 WBC (Bld) 12.7 % 19- [facility] Blood lymphocytes/100 leukoc ytesOrdered By: Dr. Turner on 04-13-2022 Lymphocytes/100 WBC (Bld) 13.3 % 19-41 [facility] Blood manual differential co mment interpretation (narrative result)Ordered By: ED PROVIDER on 04-13-2022 Manual differential comment Piyush (Bld) [Interp] SCANNED [facility] Comment on above: 1+ ANISOCYTOSIS Blood manual differential co mment interpretation (narrative result)Ordered By: Dr. Turner on 04-13-2022 Manual differential comment Piyush (Bld) [Interp] SCANNED [facility] Comment on above: 1+ ANISOCYTOSIS Blood monocytes/100 leukocyt esOrdered By: ED PROVIDER on 04-13-2022 Monocytes/100 WBC (Bld) 7.1 % 0-10 [facility] Blood monocytes/100 leukocyt esOrdered By: Dr. Turner on 04-13-2022 Monocytes/100 WBC (Bld) 7.0 % 0-10 [facility] Blood platelet mean volumeOr dered By: ED PROVIDER on 04-13-2022 Platelet mean volume (Bld) [Entitic vol] 10.8 fL 6.2-12.0 [facility] Blood platelet mean volumeOr dered By: Dr. Turner on 04-13-2022 Platelet mean volume (Bld) [Entitic vol] 11.7 fL 6.2-12.0 [facility] Determination of erythrocyte mean corpuscular volume (MCV)Ordered By: ED PROVIDER on 04-13-2022 MCV (RBC) [Entitic vol] 94.8 fL 80-94 [facility] Determination of erythrocyte mean corpuscular volume (MCV)Ordered By: Dr. Turner on 04-13-2022 MCV (RBC) [Entitic vol] 97.2 fL 80-94 [facility] Hematocrit Auto (Bld) [Volum e fraction]Ordered By: ED PROVIDER on 04-13-2022 Hematocrit (Bld) [Volume fraction] 38.2 % 40-54 [facility] Hematocrit Auto (Bld) [Volum e fraction]Ordered By: Dr. Turner on 04-13-2022 Hematocrit (Bld) [Volume fraction] 42.3 % 40-54 [facility] INR in Blood by Coagulation assayOrdered By: Dr. Dunn on 04-13-2022 INR Coag (Bld) [Relative time] 1.9 {INR} [facility] - Chemistry and C hemistry - challengeOrdered By: ED PROVIDER on 04-13-2022 CO2 [Moles/Vol] 25.0 mmol/L 21.0-32.0 [facility] Urea nitrogen/Creatinine [Mass ratio] 7.7 mg/mg 10-20 [facility] - Chemistry and C hemistry - challengeOrdered By: Dr. Turner on 04-13-2022 Natriuretic peptide B (Bld) [Mass/Vol] 699.0 pg/mL 0-100 [facility] ALP [Catalytic activity/Vol] 83 U/L 45-117 [facility] ALT [Catalytic activity/Vol] 48 U/L 16-61 [facility] CO2 [Moles/Vol] 27.0 mmol/L 21.0-32.0 [facility] Globulin (S) [Mass/Vol] 4.0 g/dL 2.2-4.2 [facility] Urea nitrogen/Creatinine [Mass ratio] 7.3 mg/mg 10-20 [facility] - CoagulationOrde red By: Dr. Dunn on 04-13-2022 PT Coag (PPP) [Time] 21.7 s 11.7-14.9 [facility] Laboratory - Hematology and Cell countsOrdered By: ED PROVIDER on 04-13-2022 Erythrocyte distribution width (RBC) [Entitic vol] 69.1 fL 35.1-43.9 [facility] Erythrocyte distribution width (RBC) [Ratio] 20.2 % 11.6-14.6 [facility] Immature granulocytes/100 WBC (Bld) 0.400 % 0.0-0.9 [facility] Comment on above: IG% - Immature Granu locytes (promyelocytes, myelocytes and metamyelocytes) > 1% indicates that a LEFT SHIFT is Present. MCH (RBC) [Entitic mass] 31.8 pg 27.0-32.0 [facility] Nucleated RBC/100 WBC (Bld) [Ratio] 1.8 % 0-5 [facility] - Hematology and Cell countsOrdered By: Dr. Turner on 04-13-2022 Erythrocyte distribution width (RBC) [Entitic vol] 71.7 fL 35.1-43.9 [facility] Erythrocyte distribution width (RBC) [Ratio] 20.5 % 11.6-14.6 [facility] Immature granulocytes/100 WBC (Bld) 0.500 % 0.0-0.9 [facility] Comment on above: IG% - Immature Granu locytes (promyelocytes, myelocytes and metamyelocytes) > 1% indicates that a LEFT SHIFT is Present. MCH (RBC) [Entitic mass] 32.0 pg 27.0-32.0 [facility] Nucleated RBC/100 WBC (Bld) [Ratio] 1.1 % [address] MCHC Auto (RBC) [Mass/Vol]Or dered By: ED PROVIDER on 04-13-2022 MCHC (RBC) [Mass/Vol] 33.5 g/dL 32- [facility] MCHC Auto (RBC) [Mass/Vol]Or dered By: Dr. Turner on 04-13-2022 MCHC (RBC) [Mass/Vol] 32.9 g/dL 32-36 [facility] No Panel InformationOrdered By: ED PROVIDER on 04-13-2022 Estimated Creatinine Clearance Calc 44.21 ml/min [facility] Estimated GFR (MDRD) Amer 46 mL/min >60 [facility] Comment on above: GFR Calc Estimated GFR (MDRD) Non-Af Amer 38 mL/min >60 [facility] Comment on above: Non- GFR Calc No Panel InformationOrdered By: Dr. Turner on 04-13-2022 Estimated GFR (MDRD) Amer 46 mL/min >60 [facility] Comment on above: GFR Calc Estimated GFR (MDRD) Non-Af Amer 38 mL/min >60 [facility] Comment on above: Non- GFR Calc Troponin I High Sensitivity 118 pg/mL 3.0-78.0 [facility] Comment on above: Please Note: New [place] t Units and Gender Specific Reference Ranges. For more information see Policy Stat Procedure [place] High Sensitivity Troponin (TNIH) and attachments. Platelets bldOrdered By: ED PROVIDER on 04-13-2022 Platelets (Bld) [#/Vol] 197 10*3/uL 150-450 [facility] Platelets bldOrdered By: Dr. Turner on 04-13-2022 Platelets (Bld) [#/Vol] 222 10*3/uL 150-450 [facility] Serum or plasma albumin cory urement (mass/volume)Ordered By: Dr. Turner on 04-13-2022 Albumin [Mass/Vol] 3.4 g/dL 3.2-5.0 [facility] Serum or plasma albumin/glob ulin mass ratioOrdered By: Dr. Turner on 04-13-2022 Albumin/Globulin [Mass ratio] 0.8 {ratio} 0.9-2.4 [facility] Serum or plasma calcium cory urement (mass/volume)Ordered By: ED PROVIDER on 04-13-2022 Calcium [Mass/Vol] 9.0 mg/dL 8.5-10.1 [facility] Serum or plasma calcium cory urement (mass/volume)Ordered By: Dr. Turner on 04-13-2022 Calcium [Mass/Vol] 9.4 mg/dL 8.5-10.1 [facility] Serum or plasma creatinine m easurement (mass/volume)Ordered By: ED PROVIDER on 04-13-2022 Creatinine [Mass/Vol] 1.94 mg/dL 0.70-1.30 [facility] Comment on above: The validity of the calculated GFR & GFRAA in patients over 70 years has not been determined. Clinical correlation is essential. Serum or plasma creatinine m easurement (mass/volume)Ordered By: Dr. Turner on 04-13-2022 Creatinine [Mass/Vol] 1.93 mg/dL 0.70-1.30 [facility] Comment on above: The validity of the calculated GFR & GFRAA in patients over 70 years has not been determined. Clinical correlation is essential. Serum or plasma urea nitroge n measurement (mass/volume)Ordered By: ED PROVIDER on 04-13-2022 Urea nitrogen [Mass/Vol] 15 mg/dL 09-22 [facility] Serum or plasma urea nitroge n measurement (mass/volume)Ordered By: Dr. Turner on 04-13-2022 Urea nitrogen [Mass/Vol] 14 mg/dL 09-22 [facility] Thin prep Papanicolaou smear with manual screeningOrdered By: ED PROVIDER on 04-13-2022 Thin prep Papanicolaou smear with manual screening 7 07-20 [facility] Thin prep Papanicolaou smear with manual screeningOrdered By: Dr. Turner on 04-13-2022 Thin prep Papanicolaou smear with manual screening 41 U/L 15- [facility] Thin prep Papanicolaou smear with manual screening 8 07-20 [facility] CBC W Auto Differential pane l (Bld)on 04-09-2022 Basophils (Bld) [#/Vol] 10*3/uL Normal <0.11 [facility] Comment on above: Order Comment: Speci men Type: BLOOD SPECIMENOrdering Facility: [facility] Address: [address] [place], [place] [address] [address] Performed By: #### 5 7021-8 ####[facility] LABCLIA [id number] [place] [address] [place] Basophils/100 WBC (Bld) 0.3 % Normal [facility] Comment on above: Order Comment: Speci men Type: BLOOD SPECIMENOrdering Facility: [facility] Address: [address] [place] [address] Performed By: #### 5 7021-8 ####[facility]CL[facility] [id number] [address] Differential cell count method Nom (Bld) Auto Normal [facility] Comment on above: Order Comment: Speci men Type: BLOOD SPECIMENOrdering Facility: [facility] Address: [address] [place] [address] Performed By: #### 5 7021-8 ####[facility]IA [id number] [place] [address] [place] Eosinophils (Bld) [#/Vol] 0.04 10*3/uL Normal <0.46 [facility] Comment on above: Order Comment: Speci men Type: BLOOD SPECIMENOrdering Facility: [facility] Address: [address] [place] [address] Performed By: #### 5 7021-8 ####[facility] [id number] [address] [place] Eosinophils/100 WBC (Bld) 0.7 % Normal [facility] Comment on above: Order Comment: Speci men Type: BLOOD SPECIMENOrdering Facility: [facility] Address: [address] [place] [address] Performed By: #### 5 7021-8 ####[facility] [id number] [address] [place] Erythrocyte distribution width (RBC) [Ratio] 19.2 % High 11.5-15.0 [facility] Comment on above: Order Comment: Speci men Type: BLOOD SPECIMENOrdering Facility: [facility] Address: [address] [place] [address] Performed By: #### 5 7021-8 ####[facility] [id number] [address] [place] Hematocrit (Bld) [Volume fraction] 42.1 % Normal 39.0-51.0 [facility] Comment on above: Order Comment: Speci men Type: BLOOD SPECIMENOrdering Facility: [facility] Address: [address] [place] [address] Performed By: #### 5 7021-8 ####[facility] [id number] [facility] [address] [place] [address] [place] Hemoglobin (Bld) [Mass/Vol] 14.5 g/dL Normal 13.0-17.0 [facility] Comment on above: Order Comment: Speci men Type: BLOOD SPECIMENOrdering Facility: [facility] Address: [address] [place] [address] Performed By: #### 5 7021-8 ####[facility] [id number] [facility] [address] [place] [address] [place] Immature granulocytes (Bld) [#/Vol] 0.03 10*3/uL Normal <0.10 [facility] Comment on above: Order Comment: Speci men Type: BLOOD SPECIMENOrdering Facility: [facility] Address: [address] [place] [address] Performed By: #### 5 7021-8 ####[facility] [id number] [facility] [address] [place] [address] [place] Immature granulocytes/100 WBC (Bld) 0.5 % Normal [facility] Comment on above: Order Comment: Speci men Type: BLOOD SPECIMENOrdering Facility: [facility] Address: [address] [place] [address] Performed By: #### 5 7021-8 ####[facility]IA [id number] [facility] [address] [place] [address] [place] Lymphocytes (Bld) [#/Vol] 1.09 10*3/uL Normal 1.00-4.00 [facility] Comment on above: Order Comment: Speci men Type: BLOOD SPECIMENOrdering Facility: [facility] Address: [address] [address] Performed By: #### 5 7021-8 ####[facility]CLIA [id number] [place] [address] [place] Lymphocytes/100 WBC (Bld) 18.7 % Normal [facility] Comment on above: Order Comment: Speci men Type: BLOOD SPECIMENOrdering Facility: [facility] Address: [address] [place] [address] Performed By: #### 5 7021-8 ####[facility] [id number] [place] [address] [place] MCH (RBC) [Entitic mass] 32.2 pg Normal 26.0-34.0 [facility] Comment on above: Order Comment: Speci men Type: BLOOD SPECIMENOrdering Facility: [facility] Address: [address] [place] [address] Performed By: #### 5 7021-8 ####[facility] [id number] [place] [address] [place] MCHC (RBC) [Mass/Vol] 34.4 g/dL Normal 30.5-36.0 [facility] Comment on above: Order Comment: Speci men Type: BLOOD SPECIMENOrdering Facility: [facility] Address: [address] [place] [address] Performed By: #### 5 7021-8 ####[facility]CLIA [id number] [place] [address] [place] MCV (RBC) [Entitic vol] 93.3 fL Normal 80.0-100.0 [facility] Comment on above: Order Comment: Speci men Type: BLOOD SPECIMENOrdering Facility: [facility] Address: [address] [place] [address] Performed By: #### 5 7021-8 ####[facility] [id number] [place] [address] [place] Monocytes (Bld) [#/Vol] 0.45 10*3/uL Normal <0.87 [facility] Comment on above: Order Comment: Speci men Type: BLOOD SPECIMENOrdering Facility: [facility] Address: [address] [address] Performed By: #### 5 7021-8 ####[facility] [id number] [place] [address] [place] Monocytes/100 WBC (Bld) 7.7 % Normal [facility] Comment on above: Order Comment: Speci men Type: BLOOD SPECIMENOrdering Facility: [facility] Address: [address] [place] [address] Performed By: #### 5 7021-8 ####[facility] [id number] [place] [address] [place] Neutrophils (Bld) [#/Vol] 4.20 10*3/uL Normal 1.45-7.50 [facility] Comment on above: Order Comment: Speci men Type: BLOOD SPECIMENOrdering Facility: [facility] Address: [address] [place], [place] [address] Performed By: #### 5 7021-8 ####[facility]CLIA [id number] [place] [address] [place] Neutrophils/100 WBC (Bld) 72.1 % Normal [facility] Comment on above: Order Comment: Speci men Type: BLOOD SPECIMENOrdering Facility: [facility] Address: [address] Performed By: #### 5 7021-8 ####[facility] [id number] [place] [address] [place] Platelet mean volume (Bld) [Entitic vol] 10.4 fL Normal 9.0-12.7 [facility] Comment on above: Order Comment: Speci men Type: BLOOD SPECIMENOrdering Facility: [facility] Address: [address] [place], [place] [address] Performed By: #### 5 7021-8 ####[facility] LABCLIA [id number] [address] Platelets (Bld) [#/Vol] 219 10*3/uL Normal 150-400 [facility] Comment on above: Order Comment: Speci men Type: BLOOD SPECIMENOrdering Facility: [facility] Address: [address] [place] [address] Performed By: #### 5 7021-8 ####[facility] LABCLIA [id number] [address] OF [facility] RBC (Bld) [#/Vol] 4.51 10*6/uL Normal 4.20-6.00 [facility] Comment on above: Order Comment: Speci men Type: BLOOD SPECIMENOrdering Facility: [facility] Address: [address] [place] [address] Performed By: #### 5 7021-8 ####[facility] LABCLIA [id number] [address] WBC (Bld) [#/Vol] 5.83 10*3/uL Normal 3.70-11.00 [facility] Comment on above: Order Comment: Speci men Type: BLOOD SPECIMENOrdering Facility: [facility] Address: [address] [place] [address] Performed By: #### 5 7021-8 ####[facility] LABCLIA [id number] [address] OF [facility] CNOVSPon 04-09-2022 CNOVSP Visit (SP) Office ([facility]) ----- YEFRI YANEZ ([id number]) 1965 M [facility] Date Time Provider Department 2/2/23 11:00 AM HAYLEE WILBURN [facility] During your visit today, we recorded the following information about you: Temperature Pulse Respiration Blood pressure 98.1 degrees 116/minute 16/minute 163/86 Weight 124.3 kg Haylee Wilburn MD 04/09/2022 4:21 PM Signed [facility] Progress Note SERVICE DATE: April 09, [...] started treatment with cabo + nivo on [facility] 1820 Trial on 08/08/2021 at [facility]. He has baseline HTN and developed worsening HTN after starting treatment. His cabo was held on 08/18/2021, resumed on 09/11/2021. The Nivo was held on 09/11/21 due to pneumonitis, and prednisone 60 mg daily was started and tapered off within about one month. Due to insurance change, he was taken off the trial and referred to [facility]. All treatments were supposed to be [...] radical nephrectomy by Dr. Aravind Hernandez at [facility] in [facility] on 02/06/2022. PATHOLOGY: -Renal cell carcinoma, clear-cell type, 5.3 x 3.0 x 2.7 cm, ISUP nuclear grade 3. -Carcinoma invades renal vein and lurdes-nephritic adipose tissue. -Margins of resection are negative for carcinoma. -Lymphovascular invasion not identified. -Regional lymph nodes not submitted. -[id number]. 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 He denies pain in the chest wall [...] ferrous sulf (more content not included)... Normal [facility] Comprehensive metabolic 2000 panelon 04-09-2022 Albumin [Mass/Vol] 3.5 g/dL Normal 3.2-5.0 [facility] Comment on above: Order Comment: Speci men Type: BLOOD SPECIMENOrdering Facility: [facility] Address: [address] [place] [address] Performed By: #### 2 4323-8, 3016-3 ####[facility] LABORATORYCLIA [id number] [address] [place] ALP [Catalytic activity/Vol] 86 U/L Normal 45-117 [facility] Comment on above: Order Comment: Speci men Type: BLOOD SPECIMENOrdering Facility: [facility] Address: [address] [place] [address] Performed By: #### 2 4323-8, 3016-3 ####[facility] LABORATORYCLIA [id number] [place] [address] [place] ALT [Catalytic activity/Vol] 45 U/L Normal 13-61 [facility] Comment on above: Order Comment: Speci men Type: BLOOD SPECIMENOrdering Facility: [facility] Address: [address] [place] [address] Result Comment: Resu lts may be falsely depressed after the administration of Sulfasalazine and/or Sulfapyridine. Performed By: #### 2 4323-8, 3015-3 ####[facility] LABORATORYCLIA [id number] [place] [address] [place] Anion gap [Moles/Vol] 6 mmol/L Normal 5-16 [facility] Comment on above: Order Comment: Speci men Type: BLOOD SPECIMENOrdering Facility: [facility] Address: [address] [place] [address] Performed By: #### 2 4323-8, 3 ####[facility] LABORATORYCLIA [id number] [place] [address] [place] AST [Catalytic activity/Vol] 40 U/L High 8-34 [facility] Comment on above: Order Comment: Speci men Type: BLOOD SPECIMENOrdering Facility: [facility] Address: [address] [place] [address] Result Comment: Resu lts may be falsely depressed after the administration of Sulfasalazine and/or Sulfapyridine. Performed By: #### 2 4323-8, 3015-05 ####[facility] LABORATORYCLIA [id number] [place] [address] [place] Bilirubin [Mass/Vol] 0.5 mg/dL Normal 0.2-1.0 [facility] Comment on above: Order Comment: Speci men Type: BLOOD SPECIMENOrdering Facility: [facility] Address: [address] [place] [address] Performed By: #### 2 4323-8, 3 ####[facility] LABORATORYCLIA [id number] [place] [address] [place] Calcium [Mass/Vol] 9.5 mg/dL Normal 8.5-10.5 [facility] Comment on above: Order Comment: Speci men Type: BLOOD SPECIMENOrdering Facility: [facility] Address: [address] [address] Performed By: #### 2 4323-8, 3015-3 ####[facility] LABORATORYCLIA [id number] [place] [address] [place] Chloride [Moles/Vol] 106 mmol/L Normal 98-107 [facility] Comment on above: Order Comment: Speci men Type: BLOOD SPECIMENOrdering Facility: [facility] Address: [address] [place] [address] Performed By: #### 2 4323-8, 3016-3 ####[facility] LABORATORYCLIA [id number] [place] [address] [place] CO2 [Moles/Vol] 30 mmol/L Normal 21-32 [facility] Comment on above: Order Comment: Speci men Type: BLOOD SPECIMENOrdering Facility: [facility] Address: [address] [place] [address] Performed By: #### 2 4323-8, 6-3 ####[facility] LABORATORYCLIA [id number] [address] STATES OF [facility] Creatinine [Mass/Vol] 1.57 mg/dL High 0.50-1.40 [facility] Comment on above: Order Comment: Speci men Type: BLOOD SPECIMENOrdering Facility: [facility] Address: [address] [place] [address] Result Comment: Hyun ents receiving either N-Acetylcysteine (NAC) or Metamizole prior to venipuncture, may have falsely depressed results. Performed By: #### 2 4323-8, 3016-3 ####[facility] LABORATORYCLIA [id number] [address] STATES OF [facility] ESTIMATED GLOMERULAR FILTRATION RATE 51 mL/min/1.73m??? Low >=60 [facility] Comment on above: Order Comment: Speci men Type: BLOOD SPECIMENOrdering Facility: [facility] Address: [address] [place] [address] Result Comment: Laurita mated Glomerular Filtration Rate [...] GFR. Performed By: #### 2 4323-8, 3015-3 ####[facility] LABORATORYCLIA [id number] [place] [id number] [place] Glucose [Mass/Vol] 132 mg/dL High 70-100 [facility] Comment on above: Order Comment: Aaliyah gibson Type: BLOOD SPECIMENOrdering Facility: [facility] Address: [address] [place] [id number] Result Comment: The [place] Diabetes Association (ADA) provides guidance for cutoff [...] Standards of Medical Care in Diabetes 2016, [place] [employer] Association. Diabetes Care. 2016.39(Suppl 1). Results may be falsely elevated after the administration of Sulfapyridine. Results may be falsely depressed after the administration of Sulfasalazine. Performed By: #### 2 4323-8, 3015-05 ####[facility] LABORATORYCLIA [id number] [place] [address] [place] Potassium [Moles/Vol] 3.7 mmol/L Normal 3.5-5.1 [facility] Comment on above: Order Comment: Aaliyah gibson Type: BLOOD SPECIMENOrdering Facility: [facility] Address: [address] [place] [address] Performed By: #### 2 4323-8, 3015-05 ####[facility] LABORATORYCLIA [id number] [place] [address] [place] Protein [Mass/Vol] 6.7 g/dL Normal 6.0-8.5 [facility] Comment on above: Order Comment: Speci men Type: BLOOD SPECIMENOrdering Facility: [facility] Address: [address] [place] [address] Performed By: #### 2 4323-8, 3016-3 ####[facility] LABORATORYCLIA [id number] [address] Sodium [Moles/Vol] 142 mmol/L Normal 136-145 [facility] Comment on above: Order Comment: Speci men Type: BLOOD SPECIMENOrdering Facility: [facility] Address: [address] [place] [address] Performed By: #### 2 4323-8, 3015-3 ####[facility] LABORATORYCLIA [id number] [address] Urea nitrogen [Mass/Vol] 17 mg/dL Normal 7-26 [facility] Comment on above: Order Comment: Speci men Type: BLOOD SPECIMENOrdering Facility: [facility] Address: [address] [place] [address] Performed By: #### 2 4323-8, 6-3 ####[facility] LABORATORYCLIA [id number] [address] OF [place] TSH SerPl-aCncon 04-09-2022 TSH Qn 2.848 m[IU]/L Normal 0.358-3.74 0 [facility] Comment on above: Order Comment: Speci men Type: BLOOD SPECIMENOrdering Facility: [facility] Address: [address] [place] [address] Result Comment: 3rd generation ultra sensitive TSH. Performed By: #### 2 4323-8, 6-3 ####[facility] LABORATORYCLIA [id number] [address] OF [facility] Office Visit (Urology)on Follow-up visit Diagnoses/Problems Assessed Metastatic renal cell carcinoma (189.0,199.1) (C64.9) Provider Impressions 57-year-old male referred to me for cytoreductive [...] between urology, medical oncology, radiation oncology at [facility] was local therapy to metastatic sites and cytoreductive nephrectomy. 12/08/2021-echo with EF 35%, LV and RV enlargement and hypokinesis 12/26/2021-patient completed radiation to chest wall and L4 lesion Patient has remained on cabo Patient was scheduled for nephrectomy with Dr. Adriana Hodge, due to insurance issues patient could not be operated on at [facility], referred to me for nephrectomy. 01/19/2022-patient scheduled for laparoscopic nephrectomy 02/0301/20/2022-patient presented to [place] ER with shortness of breath 01/27/2022-patient presented to [facility] with persistence of subjective dyspnea, expiratory wheezing 01/29/2022-patient represented to [place] ED with chest tightness and shortness of [...] today -Patient also follows with Dr. Turner [facility], sending records -Follow-up CT scans per Dr. Wilburn -Labs with Dr. Wilburn as well, renal function was good on discharge from hospital -Follow-up with me in 3 months Chief Complaint Metastatic kidney cancer History of Present [id number] male referred to [place] for cytoreductive nephrectomy Referred by Dr. Adriana [...] between urology, medical oncology, radiation oncology at [facility] was local therapy to metastatic sites and cytoreductive nephrectomy. 12/08/2021-echo with EF 35%, LV and RV enlargement and hypokinesis 12/26/2021-patient completed radiation to chest wall and L4 lesion Patient has remained on cabo Patient was scheduled for nephrectomy with Dr. Adriana Hodge, due to insurance issues patient could not be operated on at [facility], referred to [facility] for neph[place]. 01/19/2022-patient scheduled for laparoscopic nephrectomy 02/0301/20/2022-patient presented to [place] ER with shortness of breath 01/27/2022-patient presented to [facility] with persistence of subjective dyspnea, expiratory wheezing 01/29/2022-patient represented to [place] ED with chest tightness and shortness of breath. Diagnosed with CHF and pneumonia. He was prescribed cefdinir 300 mg p.o. twice daily x7 days, Lasix 40 mg daily p.o. for 14 days. 02/02/2022-canceled nephrectomy for 02/03. Called patient to discuss, subjectively feels back to baseline follow (more content not included)... Normal [facility] CNPNon 04-02-2022 [facility] Telephone ([facility]) ----- YEFRI YANEZ ([id number]) 1965 [facility] Date Time Provider Department 04/02/22 AMERICA SCHWARTZ [facility] During your visit today, we recorded the [...] by this patient by: SPOUSE Safia Carr, [facility] Problem List As Of Date 04/02/2022 Noted [...] Encounter Status:Closed by AMERICA SCHWARTZ on 04/02/22 [facility] CNPN Telephone ([facility]) ----- YEFRI YANEZ ([id number]) 1965 [facility] Date Time Provider Department 04/02/22 HAYLEE WILBURN [facility] During your visit today, we recorded the [...] by this patient by: SPOUSE Safia Carr, [facility] Problem List As Of Date 04/02/2022 Noted [...] Encounter Status:Closed by DONAVON EASTMAN on 04/02/[address] [facility] [address] ABD/PEL W IVCONon 023 CT ABD/PEL W IVCON * * *Final Report* * * DATE OF EXAM: Mar 26 2022 10:14AM [facility] 0530 - CT ABD/PEL W IVCON / PROCEDURE REASON: Renal cell carcinoma of right kidney (HCC) * * * * Physician Interpretation * * * * EXAMINATION: CT ABDOMEN AND PELVIS WITH IV CONTRAST CLINICAL HISTORY: Renal cell carcinoma of the right kidney. Status post interval robotic right radical nephrectomy at [facility]. TECHNIQUE: CT of the abdomen and [...] chest CT performed will be reported separately. Trim Operator (topogram) images: No additional findings. IMPRESSION: Interval right nephrectomy with change in the nephrectomy bed favored to be postoperative. No definite recurrence. Decrease in size of lytic metastasis centered in the posterior elements of L4. No new abdominopelvic metastasis. Stable aortic and bilateral common iliac artery aneurysms. Route Delivery Manager: PSCB Transcribe Date/Time: Mar 28 2022 9:47A Dictated by : JOSE MARIA MADSEN MD This examination was interpreted and the report reviewed and electronically signed by: JOSE MARIA MADSEN MD on Mar 28 2022 9:57AM EST [id number] [facility] CT CHEST W IVCONon CT CHEST W IVCON * * *Final Report* * * DATE OF EXAM: Mar 26 2022 10:14AM [facility] 0539 - CT CHEST W IVCON [...] No abnormality in the imaged upper abdomen. Trim Operator (topogram) images: No additional findings. IMPRESSION: New small patchy infiltrates in the lateral right middle and lower lobes. Interval decrease in size right sixth rib expansile metastasis. Stable 1.3 cm right paratracheal lymph node. No new lymphadenopathy. Atherosclerotic calcification of the aorta and coronary arteries. Ectasia of the ascending thoracic aorta. _ Route Delivery Manager: PSCB Transcribe Date/Time: Mar 29 2022 12:00P Dictated by : YEFRI MORRIS MD This examination was interpreted and the report reviewed and electronically signed by: YEFRI MORRIS MD on Mar 29 2022 10:12PM EST [id number] [facility] 03-25-2022 [facility] Telephone ([facility]) ----- YEFRI YANEZ ([id number]) 1965 [facility] Date Time Provider Department 03/25/22 HAYLEE WILBURN [facility] During your visit today, we recorded the following information about you: Tania Parekh RN 03/25/2022 9:12 AM Signed Patient called stating his insurance is not approved for our office and that Dr. Wilburn needs to place a Referral for Nathaniel. 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] Prescriptions as of 03/25/2022 [...] by this patient by: SPOUSE Safia Carr, [facility] Problem List As Of Date 03/25/2022 Noted [...] Encounter Status:Closed by TANIA PAREKH on 03/25/22 [facility] CNPN Telephone ([facility]) ----- YEFRI YANEZ ([id number]) 1965 [facility] Date Time Provider Department 03/25/22 HAYLEE WILBURN [facility] During your visit today, we recorded the following information about you: Venita Pollock 03/25/2022 9:23 AM Signed Per chat from RN TLP, yesica pt visit and possible tx from today to 04/02. Pt keeps calling to say that he is not apporved to be seen here and his insurance told him to go to [place]. I have discussed several times with pt [...] by this patient by: SPOUSE Safia Carr, [facility] Problem List As Of Date 03/25/2022 Noted [...] Encounter Status:Closed by VENITA POLLOCK on 03/25/22 [facility] BONE WHOLE BODYon 023 [place] BONE WHOLE BODY * * *Final Report* * * DATE OF EXAM: Mar 23 2022 12:09PM N 0014 - [place] BONE WHOLE BODY / PROCEDURE REASON: Renal [...] right anterior sixth rib and L4 vertebra. Route Delivery Manager: PSCAbdirahman Transcribe Date/Time: Mar 23 2022 12:12P Dictated by : NASREEN QUINTANA MD This examination was interpreted and the report reviewed and electronically signed by: NASREEN QUINTANA MD on Mar 23 2022 12:18PM EST [id number] [facility] CNPNon 03-12-2022 CNPN Telephone ([facility]) ----- YEFRI YANEZ ([id number]) 1965 [facility] Date Time Provider Department 03/12/22 AMERICA SCHWARTZ [facility] During your visit today, we recorded the following information about you: Octavio Schwartz RN 03/12/2022 11:04 AM Signed LMOM with the appointment dates, times and location of upcoming bone scan and CT scans. Bone scan 03/23/22 at 830 am here at the [facility]. CT scans at [place] urgent care 03/24/22 at 1pm. America Schwartz [...] by this patient by: SPOUSE Safia Carr, [facility] Problem List As Of Date 03/12/2022 Noted [...] Encounter Status:Closed by AMERICA SCHWARTZ on 03/16/22 [facility] CNOVSPon 03-11-2022 CNOVSP [facility] ----- YEFRI YANEZ ([id number]) 1965 M [facility] Date Time Provider Department 03/11/22 1:00 PM HAYLEE WILBURN [facility] During your visit today, we recorded the following information about you: Pulse Respiration Blood pressure Weight 78/minute 16/minute 134/84 118.8 kg Haylee Wilbrun MD 03/11/2022 4:16 PM Signed [facility] Progress Note SERVICE DATE: March 11, [...] started treatment with cabo + nivo on [facility] 1820 Trial on 08/08/2021 at [facility]. He has baseline HTN and developed worsening HTN after starting treatment. His cabo was held on 08/18/2021, resumed on 09/11/2021. The Nivo was held on 09/11/21 due to pneumonitis, and prednisone 60 mg daily was started and tapered off within about one month. Due to insurance change, he was taken off the trial and referred to [facility] to resume the treatment. He was scheduled to have nephrectomy on 11/04/21, but delayed due to his back pain. He underwent palliative XRT to L3-L5 (2,000 cGy in 5 fx), completed 12/26/21). He underwent da Farzad assisted robotic right radical nephrectomy at [facility] in [facility]. I do not have the official pathology report yet. We have made multiple requests to [facility] for the surgical pathology, to no avail. [...] mg tablet (more content not included)... Normal [facility] ECHO LIMITEDon 02-26-2022 CONCLUSIONS: - [...] * * * Final * * * [facility] Echocardiography Report: [facility] Date of service: 02/26/2022 8:14:13 AM Ordering physician: SAYRA TELLO Indication: Cardiomyopathy Technologist: Sybil Craft [facility] Interpreting physician: Sayra Tello MD PATIENT: Name: [...] valve regurgitation. PERICARDIUM The pericardium is normal. [facility] ECHO LIMITED Echocardiography Rep ort: [facility] Date of service: 02/26/2022 8:14:13 AM Ordering physician: SAYRA TELLO Indication: Cardiomyopathy Technologist: Sybil Craft [facility] Interpreting physician: Sayra Tello MD PATIENT: Name: [...] * * * Final * * * [employer] : [id number] [facility] 02-19-2022 [facility] Telephone ([facility]) ----- YEFRI YANEZ ([id number]) 1965 [facility] Date Time Provider Department 02/19/22 SAYRA TELLO [...] [I50.9] Order(s):BASIC METABOLIC PNL [SQBMP] Order #: [id number] FUTURE Prescriptions as of 02/22/2022 - torsemide [...] by this patient by: SPOUSE Safia Bruno, [facility] Problem List As Of Date 02/19/2022 Noted [...] Encounter Status:Closed by SAYRA TELLO on 02/22/22 [facility] Dougie 02-18-2022 CNPN Telephone ([facility]) ----- YEFRI YANEZ ([id number]) 1965 [facility] Date Time Provider Department 02/18/22 SAYRA TELLO [...] by this patient by: SPOUSE Safia Carr, [facility] Problem List As Of Date 02/18/2022 Noted [...] Encounter Status:Closed by RACHEL TREVINO on 02/18/22 [facility] CBC W Auto Differential pane l (Bld)on 02-17-2022 Basophils (Bld) [#/Vol] 10*3/uL Normal <0.11 [facility] Comment on above: Order Comment: Speci men Type: BLOOD SPECIMENOrdering Facility: [facility] Address: [address] [address] Performed By: #### 5 7021-8 ####[facility] LABCLIA [id number] [place] [address] [place] Basophils/100 WBC (Bld) 0.2 % Normal [facility] Comment on above: Order Comment: Speci men Type: BLOOD SPECIMENOrdering Facility: [facility] Address: [address] [address] Performed By: #### 5 7021-8 ####[facility] LABCLIA [id number] [place] [address] [place] Differential cell count method Nom (Bld) Auto [facility] Comment on above: Order Comment: Speci men Type: BLOOD SPECIMENOrdering Facility: [facility] Address: [address] [address] Performed By: #### 5 7021-8 ####[facility] LABCLIA [id number] [facility] [address] [place] [address] [place] Eosinophils (Bld) [#/Vol] 0.04 10*3/uL Normal <0.46 [facility] Comment on above: Order Comment: Speci men Type: BLOOD SPECIMENOrdering Facility: [facility] Address: [address] [place] [address] Performed By: #### 5 7021-8 ####[facility] LABCLIA [id number] [facility] [address] [place] [address] [place] Eosinophils/100 WBC (Bld) 1.0 % Normal [facility] Comment on above: Order Comment: Speci men Type: BLOOD SPECIMENOrdering Facility: [facility] Address: [address] [place] [address] Performed By: #### 5 7021-8 ####[facility] LABCLIA [id number] [place] [address] [place] Erythrocyte distribution width (RBC) [Ratio] 17.0 % High 11.5-15.0 [facility] Comment on above: Order Comment: Speci men Type: BLOOD SPECIMENOrdering Facility: [facility] Address: [address] [place] [address] Performed By: #### 5 7021-8 ####[facility] LABCLIA [id number] [facility] [address] [place] [address] [place] Hematocrit (Bld) [Volume fraction] 47.4 % Normal 39.0-51.0 [facility] Comment on above: Order Comment: Speci men Type: BLOOD SPECIMENOrdering Facility: [facility] Address: [address] [place] [address] Performed By: #### 5 7021-8 ####[facility] LABCLIA [id number] [facility] [address] [place] [address] [place] Hemoglobin (Bld) [Mass/Vol] 15.7 g/dL Normal 13.0-17.0 [facility] Comment on above: Order Comment: Speci men Type: BLOOD SPECIMENOrdering Facility: [facility] Address: [address] [address] Performed By: #### 5 7021-8 ####[facility] LABCLIA [id number] [place] [address] [place] Immature granulocytes (Bld) [#/Vol] 10*3/uL Normal <0.10 [facility] Comment on above: Order Comment: Speci men Type: BLOOD SPECIMENOrdering Facility: [facility] Address: [address] [address] Performed By: #### 5 7021-8 ####[facility] LABCLIA [id number] [address] OF [place] Immature granulocytes/100 WBC (Bld) 0.5 % Normal [facility] Comment on above: Order Comment: Speci men Type: BLOOD SPECIMENOrdering Facility: [facility] Address: [address] [address] Performed By: #### 5 7021-8 ####[facility] LABCLIA [id number] [place] [address] [place] Lymphocytes (Bld) [#/Vol] 0.75 10*3/uL Low 1.00-4.00 [facility] Comment on above: Order Comment: Speci men Type: BLOOD SPECIMENOrdering Facility: [facility] Address: [address] Performed By: #### 5 7021-8 ####[facility] LABCLIA [id number] [place] [address] [place] Lymphocytes/100 WBC (Bld) 18.2 % Normal [facility] Comment on above: Order Comment: Speci men Type: BLOOD SPECIMENOrdering Facility: [facility] Address: [address] [place] [address] Performed By: #### 5 7021-8 ####[facility] LABCLIA [id number] [place] [address] OF [place] MCH (RBC) [Entitic mass] 30.7 pg Normal 26.0-34.0 [facility] Comment on above: Order Comment: Speci men Type: BLOOD SPECIMENOrdering Facility: [facility] Address: [address] [place] [address] Performed By: #### 5 7021-8 ####[facility] LABCLIA [id number] [place] [address] [place] MCHC (RBC) [Mass/Vol] 33.1 g/dL Normal 30.5-36.0 [facility] Comment on above: Order Comment: Speci men Type: BLOOD SPECIMENOrdering Facility: [facility] Address: [address] [place] [address] Performed By: #### 5 7021-8 ####[facility] LABCLIA [id number] [address] [place] MCV (RBC) [Entitic vol] 92.8 fL Normal 80.0-100.0 [facility] Comment on above: Order Comment: Speci men Type: BLOOD SPECIMENOrdering Facility: [facility] Address: [address] [place] [address] Performed By: #### 5 7021-8 ####[facility] LABCLIA [id number] [address] [address] [place] Monocytes (Bld) [#/Vol] 0.30 10*3/uL Normal <0.87 [facility] Comment on above: Order Comment: Speci men Type: BLOOD SPECIMENOrdering Facility: [facility] Address: [address] [place] [address] Performed By: #### 5 7021-8 ####[facility] LABCLIA [id number] [address] Monocytes/100 WBC (Bld) 7.3 % Normal [facility] Comment on above: Order Comment: Speci men Type: BLOOD SPECIMENOrdering Facility: [facility] Address: [address] [place], [place] [address] Performed By: #### 5 7021-8 ####[facility] LABCLIA [id number] [place] [address] [place] Neutrophils (Bld) [#/Vol] 3.00 10*3/uL Normal 1.45-7.50 [facility] Comment on above: Order Comment: Speci men Type: BLOOD SPECIMENOrdering Facility: [facility] Address: [address] [place] [address] Performed By: #### 5 7021-8 ####[facility] LABCLIA [id number] [address] OF [place] Neutrophils/100 WBC (Bld) 72.8 % Normal [facility] Comment on above: Order Comment: Speci men Type: BLOOD SPECIMENOrdering Facility: [facility] Address: [address] [place] [address] Performed By: #### 5 7021-8 ####[facility] LABCLIA [id number] [place] [address] [place] Platelet mean volume (Bld) [Entitic vol] 10.0 fL Normal 9.0-12.7 [facility] Comment on above: Order Comment: Speci men Type: BLOOD SPECIMENOrdering Facility: [facility] Address: [address] [place] [address] Performed By: #### 5 7021-8 ####[facility] LABCLIA [id number] [place] [address] [place] Platelets (Bld) [#/Vol] 359 10*3/uL Normal 150-400 [facility] Comment on above: Order Comment: Speci men Type: BLOOD SPECIMENOrdering Facility: [facility] Address: [address] [place] [address] Performed By: #### 5 7021-8 ####[facility] LABCLIA [id number] [place] [address] [place] RBC (Bld) [#/Vol] 5.11 10*6/uL Normal 4.20-6.00 [facility] Comment on above: Order Comment: Speci men Type: BLOOD SPECIMENOrdering Facility: [facility] Address: [address] [place] [address] Performed By: #### 5 7021-8 ####[facility] LABCLIA [id number] [address] WBC (Bld) [#/Vol] 4.12 10*3/uL Normal 3.70-11.00 [facility] Comment on above: Order Comment: Speci men Type: BLOOD SPECIMENOrdering Facility: [facility] Address: [address] [place] [address] Performed By: #### 5 7021-8 ####[facility] LABCLIA [id number] [address] Basophils (Bld) [#/Vol] <0.11 k/uL [facility] Bas[facility]/100 WBC (Bld) 0.2 % C [facility] Differential cell count method Nom (Bld) Auto [facility] Eosinophils (Bld) [#/Vol] 0.04 10*3/uL <0.46 k/uL [facility] Eosinophils/100 WBC (Bld) 1.0 % [facility] Erythrocyte distribution width (RBC) [Ratio] 17.0 % High 11.5 - 15.0 % [facility] Hematocrit (Bld) [Volume fraction] 47.4 % 39.0 - 51.0 % [facility] Hemoglobin (Bld) [Mass/Vol] 15.7 g/dL 13.0 - 17.0 g/dL [facility] Immature granulocytes (Bld) [#/Vol] <0.10 k/uL [facility] Immature granulocytes/100 WBC (Bld) 0.5 % [facility] Lymphocytes (Bld) [#/Vol] 0.75 10*3/uL Low 1.00 - 4.00 k/uL [facility] Lymphocytes/100 WBC (Bld) 18.2 % [facility] MCH (RBC) [Entitic mass] 30.7 pg 26.0 - 34.0 pg [facility] MCHC (RBC) [Mass/Vol] 33.1 g/dL 30.5 - 36.0 g/dL [facility] MCV (RBC) [Entitic vol] 92.8 fL 80.0 - 100.0 fL [facility] Monocytes (Bld) [#/Vol] 0.30 10*3/uL <0.87 k/uL [facility] Monocytes/100 WBC (Bld) 7.3 % C [facility] Neutrophils (Bld) [#/Vol] 3.00 10*3/uL 1.45 - 7.50 k/uL [facility] Neutrophils/100 WBC (Bld) 72.8 % [facility] Platelet mean volume (Bld) [Entitic vol] 10.0 fL 9.0 - 12.7 fL [facility] Platelets (Bld) [#/Vol] 359 10*3/uL 150 - 400 k/uL [facility] RBC (Bld) [#/Vol] 5.11 10*6/uL 4.20 - 6.00 m/uL [facility] WBC (Bld) [#/Vol] 4.12 10*3/uL 3.70 - 11.00 k/uL [facility] CNOVSPon 02-17-2022 [facility]OVSP [facility] ----- YEFRI YANEZ ([id number]) 1965 [facility] Date Time Provider Department 02/17/22 11:30 AM HAYLEE [facility]IL[facility]URN [facility] During your visit today, we recorded the following information about you: Pulse Respiration Blood pressure Weight 72/minute 16/minute 132/74 114.8 kg Haylee Wilburn MD 02/17/2022 5:25 PM Signed [facility] Progress Note SERVICE DATE: February 17, 2022 [...] started treatment with cabo + nivo on [facility] 1820 Trial on 08/08/2021 at [facility]. He has baseline HTN and developed worsening HTN after starting treatment. His cabo was held on 08/18/2021, resumed on 09/11/2021. The Nivo was held on 09/11/21 due to pneumonitis, and prednisone 60 mg daily was started and tapered off within about one month. Due to insurance change, he was taken off the trial and referred to [facility] to resume the treatment. He was scheduled to have nephrectomy on 11/04/21, but delayed due to his back pain and palliative XRT to L3-L5 (2,000 cGy in 5 fx, completed 12/26/21). His back pain has resolved. He underwent da Farzad assisted robotic right radical nephrectomy at [facility] in [facility]. I do not have the official [...] and diarrhe (more content not included)... Normal [facility] Comprehensive metabolic 2000 panelon 02-17-2022 Albumin [Mass/Vol] 3.5 g/dL Normal 3.2-5.0 [facility] Comment on above: Order Comment: Speci men Type: BLOOD SPECIMENOrdering Facility: [facility] Address: [address] [address] Performed By: #### 2 4323-8 ####[facility] LABORATORYCLIA [id number] [place] [address] [place] ALP [Catalytic activity/Vol] 107 U/L Normal 45-117 [facility] Comment on above: Order Comment: Speci men Type: BLOOD SPECIMENOrdering Facility: [facility] Address: [address] [address] Performed By: #### 2 4323-8 ####[facility] LABORATORYCLIA [id number] [place] [address] [place] ALT [Catalytic activity/Vol] 102 U/L High 13-61 [facility] Comment on above: Order Comment: Speci men Type: BLOOD SPECIMENOrdering Facility: [facility] Address: [address] [place] [address] Result Comment: Resu lts may be falsely depressed after the administration of Sulfasalazine and/or Sulfapyridine. Performed By: #### 2 4323-8 ####[facility] LABORATORYCLIA [id number] [place] [address] [place] Anion gap [Moles/Vol] 9 mmol/L Normal 5-16 [facility] Comment on above: Order Comment: Speci men Type: BLOOD SPECIMENOrdering Facility: [facility] Address: [address] [address] Performed By: #### 2 4323-8 ####[facility] LABORATORYCLIA [id number] [place] [address] [place] AST [Catalytic activity/Vol] 62 U/L High 8-34 [facility] Comment on above: Order Comment: Speci men Type: BLOOD SPECIMENOrdering Facility: [facility] Address: [address] [place] [address] Result Comment: Resu lts may be falsely depressed after the administration of Sulfasalazine and/or Sulfapyridine. Performed By: #### 2 4323-8 ####[facility] LABORATORYCLIA [id number] [place] [address] [place] Bilirubin [Mass/Vol] 0.4 mg/dL Normal 0.2-1.0 [facility] Comment on above: Order Comment: Speci men Type: BLOOD SPECIMENOrdering Facility: [facility] Address: [address] [place] [address] Performed By: #### 2 4323-8 ####[facility] LABORATORYCLIA [id number] [place] [address] [place] Calcium [Mass/Vol] 9.5 mg/dL Normal 8.5-10.5 [facility] Comment on above: Order Comment: Speci men Type: BLOOD SPECIMENOrdering Facility: [facility] Address: [address] [place] [address] Performed By: #### 2 4323-8 ####[facility] LABORATORYCLIA [id number] [place] [address] [place] Chloride [Moles/Vol] 103 mmol/L Normal 98-107 [facility] Comment on above: Order Comment: Speci men Type: BLOOD SPECIMENOrdering Facility: [facility] Address: [address] [place] [address] Performed By: #### 2 4323-8 ####[facility] LABORATORYCLIA [id number] [place] [address] [place] CO2 [Moles/Vol] 27 mmol/L Normal 21-32 [facility] Comment on above: Order Comment: Speci men Type: BLOOD SPECIMENOrdering Facility: [facility] Address: [address] [address] Performed By: #### 2 4323-8 ####[facility] LABORATORYCLIA [id number] [place] [address] [place] Creatinine [Mass/Vol] 1.96 mg/dL High 0.50-1.40 [facility] Comment on above: Order Comment: Speci men Type: BLOOD SPECIMENOrdering Facility: [facility] Address: [address] [address] Result Comment: Hyun ents receiving either N-Acetylcysteine (NAC) or Metamizole prior to venipuncture, may have falsely depressed results. Performed By: #### 2 4323-8 ####[facility] LABORATORYCLIA [id number] [place] [address] [place] ESTIMATED GLOMERULAR FILTRATION RATE 39 mL/min/1.73m??? Low >=60 [facility] Comment on above: Order Comment: Speci men Type: BLOOD SPECIMENOrdering Facility: [facility] Address: [address] [address] Result Comment: Laurita mated Glomerular Filtration Rate [...] actual GFR. Performed By: #### 2 4323-8 ####[facility] LABORATORYCLIA [id number] [place] [address] [place] Glucose [Mass/Vol] 114 mg/dL High 70-100 [facility] Comment on above: Order Comment: Speci men Type: BLOOD SPECIMENOrdering Facility: [facility] Address: [address] [address] Result Comment: The [place] Diabetes Association (ADA) provides guidance for cutoff [...] Standards of Medical Care in Diabetes 2016, [place] [employer] Association. Diabetes Care. 2016.39(Suppl 1). Results may be falsely elevated after the administration of Sulfapyridine. Results may be falsely depressed after the administration of Sulfasalazine. Performed By: #### 2 4323-8 ####[facility] LABORATORYCLIA [id number] [place] [address] [place] Potassium [Moles/Vol] 4.7 mmol/L Normal 3.5-5.1 [facility] Comment on above: Order Comment: Aaliyah gibson Type: BLOOD SPECIMENOrdering Facility: [facility] Address: [address] [place] [address] Performed By: #### 2 4323-8 ####[facility] LABORATORYCLIA [id number] [place] [address] [place] Protein [Mass/Vol] 7.2 g/dL Normal 6.0-8.5 [facility] Comment on above: Order Comment: Aaliyah gibson Type: BLOOD SPECIMENOrdering Facility: [facility] Address: [address] [place] [address] Performed By: #### 2 4323-8 ####[facility] LABORATORYCLIA [id number] [place] [address] [place] Sodium [Moles/Vol] 139 mmol/L Normal 136-145 [facility] Comment on above: Order Comment: Ronyi men Type: BLOOD SPECIMENOrdering Facility: [facility] Address: [address] [address] Performed By: #### 2 4323-8 ####[facility] LABORATORYCLIA [id number] [place] [address] [place] Urea nitrogen [Mass/Vol] 23 mg/dL Normal 7-26 [facility] Comment on above: Order Comment: Speci men Type: BLOOD SPECIMENOrdering Facility: [facility] Address: [place] [address] Performed By: #### 2 4323-8 ####[facility] LABORATORYCLIA [id number] [place] [address] [place] Albumin [Mass/Vol] 3.5 g/dL 3.2 - 5.0 g/dL [facility] ALP [Catalytic activity/Vol] 107 U/L 45 - 117 U/L [facility] ALT [Catalytic activity/Vol] 102 U/L High 13 - 61 U/L [facility] Anion gap [Moles/Vol] 9 mmol/L 5 - 16 mmol/L [facility] AST [Catalytic activity/Vol] 62 U/L High 8 - 34 U/L [facility] Bilirubin [Mass/Vol] 0.4 mg/dL 0.2 - 1 .0 mg/dL [facility] Calcium [Mass/Vol] 9.5 mg/dL 8.5 - 10. 5 mg/dL [facility] Chloride [Moles/Vol] 103 mmol/L 98 - 10 7 mmol/L [facility] CO2 [Moles/Vol] 27 mmol/L 21 - 32 mmol/L [facility] Creatinine [Mass/Vol] 1.96 mg/dL High 0.50 - 1.40 mg/dL [facility] Estimated Glomerular Filtration Rate 39 mL/min/1.73m Low >=60 mL/min/1.7 3m [facility] Glucose [Mass/Vol] 114 mg/dL High 70 - 100 mg/dL [facility] Potassium [Moles/Vol] 4.7 mmol/L 3.5 - 5.1 mmol/L [facility] Protein [Mass/Vol] 7.2 g/dL 6.0 - 8.5 g/dL [facility] Sodium [Moles/Vol] 139 mmol/L 136 - 145 mmol/L [facility] Urea nitrogen [Mass/Vol] 23 mg/dL 7 - 26 mg/dL [facility] CNOVon 02-16-2022 CNOV Office Visit ([facility] ) ----- RENATAYEFRI ([id number]) 1965 M [facility] Date Time Provider Department 02/16/22 10:00 AM SAYRA TELLO During your visit today, we recorded the following information about you: Pulse Blood pressure Weight Height 51/minute 90/64 115.7 kg 1.803 m Sayra Tello MD 02/16/2022 11:29 AM Signed [facility] OUTPATIENT VISIT DATE 02/16/2022 OUTPATIENT VISIT TYPE NEW PATIENT PRIMARY CARE PHYSICIAN: Daksha Turner ([facility]) [address] [place], [place] [id number] HISTORY OF PRESENT ILLNESS: 57-year-old male CAD, [...] sometimes tobacco. 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 PAST MEDICAL HISTORY Diagnosis Date Abdominal aortic [...] A DAY cyclobenzapr (more content not included)... [facility] CNOVon 02-13-2022 [facility] Office Visit ([facility]DMERC ) ----- YEFRI YANEZ ([id number]) 1965 M [facility] Date Time Provider Department 02/13/22 2:00 PM [facility] During your visit today, we recorded the following information about you: Temperature Pulse Respiration Blood pressure 98.2 degrees 64/minute 22/minute 138/87 Weight 119.7 kg Suman Peterson APRN.CNP 02/13/2022 2:41 PM Signed Radiation Oncology - [...] or develops any concerning symptoms. Suman Peterson APRN.CONCRETE MIXER OPERATOR HELPER Tamiko Mason RN (more content not included)... Normal [facility] CBCon 02-10-2022 Erythrocyte distribution width (RBC) [Ratio] 18.6 % High 11.5 - 14.5 [facility] Comment on above: Performed By: #### C BC #### [facility] [address] [facility] [place] [address] Hematocrit (Bld) [Volume fraction] 41.8 % Normal 41.0 - 52.0 [facility] Comment on above: Performed By: #### C BC #### [address] [address] Hemoglobin (Bld) [Mass/Vol] 13.0 g/dL Low 13.5 - 17.5 [facility] Comment on above: Performed By: #### C BC #### [address] [address] MCHC (RBC) [Mass/Vol] 31.1 g/dL Low 32.0 - 36.0 [facility] Comment on above: Performed By: #### C BC #### [address] [address] MCV (RBC) [Entitic vol] 100 fL Normal 80 - 100 [facility] Comment on above: Performed By: #### C BC #### [address] [address] NUCLEATED RBC 0.0 /100 WBC Normal 0.0 - 0.0 [facility] Comment on above: Performed By: #### C BC #### [address] [address] Platelets (Bld) [#/Vol] 162 10*3/uL Normal 150 - 450 [facility] Comment on above: Performed By: #### C BC #### [address] [address] RBC 4.17 x10E12/L Low 4.50 - 5.90 [facility] Comment on above: Performed By: #### C BC #### [address] [address] WBC (Bld) [#/Vol] 5.5 10*3/uL Normal 4.4 - 11.3 [facility] Comment on above: Performed By: #### C BC #### [address] [address] Daily Progress Note-Medicine on 02-10-2022 Daily Progress Note-Medicine Service: Medicine Subjective Data: RENATA YEFRI E is a 57 year old Male who [...] night. Objective Data: Objective Information: T PRBPMAPSpO2 [id number]/08961% Date/Time02/10 8: 8: 8: 8: 8:00 Range(36.1C - 36.6C ) (57 - 80 ) (16 - 20 ) (138 - 167 )/ (91 - 126 ) (94% - 100% ) As of 09-Feb-2022 21:15:00, patient is on 3 L/min of oxygen via room air. Pain reported at 02/10 9:46: 0 = None ---- Intake and Output ----- Mn/Dy/Year TimeIntakeOutputNet Feb 10, 2022 6:00 [id number] Feb 09, 2022 10:00 [id number] Feb 09, 2022 2:00 [id number] The Intake and Output Totals for the last 24 hours are: IntakeOutnew mexico behavioral health institute at las vegasNet [id number] Physical Exam Narrative: Physical Exam: General: Appears [...] 12.5 mg (more content not included)... Normal [facility] Daily Progress Note-Urologyo n 02-10-2022 Daily Progress [...] overnight. Objective Data: Objective Information: T PRBPMAPSpO2 Value36.17007465/00631% Date/Time02/10 8: 8: 8:0012/6 8: 8:00 Range(36.1C - 36.6C ) (57 - 80 ) (16 - 20 ) (138 - 167 )/ (91 - 126 ) (94% - 100% ) As of 09-Feb-2022 21:15:00, patient is on 3 L/min of oxygen via nasal cannula. Pain reported at 02/10 0:00: 0 = None ---- Intake and Output ----- Mn/Dy/Year TimeIntakeOutnew mexico behavioral health institute at las vegasNet Feb 10, 2022 6:00 [id number] Feb 09, 2022 10:00 [id number] Feb 09, 2022 2:00 [id number] The Intake and Output Totals for the last 24 hours are: IntakeOutY[facility] [id number] Physical Exam by System: Constitutional: Well developed, [...] on c (more content not included)... Normal [facility] PT Evaluation v2-physical th [facility] 02-10-2022 PT Evaluation v2-physical therapy Rehab: Info: Mode of Treatmentphysical therapy Time IN09:58 Time OUT10:08 Total Treatment [id number] Patient in ... at end of sessionbed, 3 railings up Communicated with ... at end of sessionbedside nurse Patient Effortgood Symptoms Noted During/After Treatmentnone Patient Profile Reviewedyes Onset of Illness/Injury or Date of [id number] Reason for Referralimpaired mobility, gait training, impaired cognition/safety awareness Referring PhysicianDr. Hernandez General Observations of PatientCleared by nursing to work with patient. Pt supine in bed with HOB elevated. Pt in no apparent distress and willing to participate in therapy. RN agreeable to have patient out of bed and into chair. Pertinent History of Current Functional [id number]-tago-mnv male patient status post laparoscopic right radical [...] ambulate with no device. 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 Pt denies falls. Line and Tubestelemetry Vision/Cognition: Affect/Mental Status (Cognitive)WNL Orientation Status (Cognition)oriented x 4 ROM: Lower Extremity: Range of Motionleft lower extremity ROM WFL; right lower extremity ROM WFL MMT: Lower Extremity: Manual Muscle Testing (MMT)left lower extremity strength WFL; right lower extremity strength WFL Mobility/Tone: Bed Mobility Assessment/Interventionss upine to sit Tcvxuk-ki-Klw [place] (Bed Mobility)independent Transfer Assessment/Interventionss it to stand transfer; stand to sit transfer Sit-Stand [place] (Transfers)modified independence Sit-Stand Assistive Device (Transfers)walker, front-wheeled Stand-Sit [place] (Transfers)modified independence Stand-Sit Assistive Device (Transfers)walker, front-wheeled Gait/Stairs Locomotiongait/ambulation assistive device; gait/ambulation independence; distance ambulated Gait Locomotion (Gait)modified independence Assistive Device (Gait Training)walker, front-wheeled Distance in Feet (Gait Training)250 ft WFLs Motor: Sitting, Static (Balance)good balance Sitting, Dynamic (Balance)good balance Wbm-af-Aswjg (Balance)good balance Standing, Static (Balance)good balance Standing, Dynamic (Balance)good balance Sensory: Pre-Treatment Pain Rating0/10 - no pain Post-Treatment Pain Rating2/10 Comment, Pre/Post Treatment Painsoreness reported at incision site Sensory General Assessmentno sensation deficits identified Health: Observed Emotional Statecooperative; pleasant Plan of Care Reviewed Withpatient Impression: Criteria for Skilled Therapeutic Interventions Met (PT Eval)yes; treatment indicated PT NurtaiuzgR57.2 difficulty walking Physical Therapy Prognosisgood System Pathology/Pathophysiology [...] (PT Eval)5 times/wk Predicted Duration of Therapy Fgvowoohlida54 days Planned Therapy Interventions (PT Eval)balance training; [...] Score22 Short Term Goals: Gait: Established Gait: [place] Level Goalindependent Gait: Distance [id number] ft Gait: Time Frame for Goal2 wks Balance: Established Ba (more content not included)... Normal [facility] RENAL FUNCTION PANELon 02-10 Albumin [Mass/Vol] 3.4 g/dL Normal 3.4 - 5.0 [facility] Comment on above: Performed By: #### C BC #### [address] [address] Anion gap [Moles/Vol] 11 mmol/L Normal 10 - 20 [facility] Comment on above: Performed By: #### C BC #### [id number] [place] [address] Calcium [Mass/Vol] 8.5 mg/dL Low 8.6 - 10.3 [facility] Comment on above: Performed By: #### C BC #### [id number] [place] [address] Chloride [Moles/Vol] 103 mmol/L Normal 98 - 107 [facility] Comment on above: Performed By: #### C BC #### [address] [place] [address] Creatinine [Mass/Vol] 1.48 mg/dL High 0.50 - 1.30 [facility] Comment on above: Performed By: #### C BC #### [address] [place] [address] GFR/1.73 sq M.predicted among non-blacks MDRD (S/P/Bld) [Vol rate/Area] 54 mL/min/{1.73_m2} Abnormal >90 [facility] Comment on above: Result Comment: CALC ULATIONS OF ESTIMATED GFR ARE PERFORMED USING THE 2020 CKD-EPI STUDY REFIT EQUATION WITHOUT THE RACE VARIABLE FOR THE IDMS-TRACEABLE CREATININE METHODS. https://jasn.asnjournals.org/content/early/ASN.2020 918011 Performed By: #### C BC #### [address] [address] Glucose [Mass/Vol] 107 mg/dL High 74 - 99 [facility] Comment on above: Performed By: #### C BC #### [address] [address] HCO3 (Bld) [Moles/Vol] 31 mmol/L Normal 21 - 32 [facility] Comment on above: Performed By: #### C BC #### [address] [address] Phosphate [Mass/Vol] 1.5 mg/dL Low 2.5 - 4.9 [facility] Comment on above: Result Comment: The performance characteristics of phosphorus testing in heparinized plasma have been validated by the individual laboratory site where testing is performed. Testing on heparinized plasma is not approved by the FDA; however, such approval is not necessary. Performed By: #### C BC #### [address] [place] [address] Potassium [Moles/Vol] 3.9 mmol/L Normal 3.5 - 5.3 [facility] Comment on above: Performed By: #### C BC #### [address] [address] Sodium [Moles/Vol] 141 mmol/L Normal 136 - 145 [facility] Comment on above: Performed By: #### C BC #### [address] [address] Urea nitrogen [Mass/Vol] 21 mg/dL Normal 6 - 23 [facility] Comment on above: Performed By: #### C BC #### [address] [address] CBCon 02-09-2022 Erythrocyte distribution width (RBC) [Ratio] 19.1 % High 11.5 - 14.5 [facility] Comment on above: Performed By: #### C BC #### [address] [address] Hematocrit (Bld) [Volume fraction] 43.1 % Normal 41.0 - 52.0 [facility] Comment on above: Performed By: #### C BC #### [address] [address] Hemoglobin (Bld) [Mass/Vol] 13.5 g/dL Normal 13.5 - 17.5 [facility] Comment on above: Performed By: #### C BC #### [address] [address] MCHC (RBC) [Mass/Vol] 31.3 g/dL Low 32.0 - 36.0 [facility] Comment on above: Performed By: #### C BC #### [address] [address] MCV (RBC) [Entitic vol] 100 fL Normal 80 - 100 [facility] [place] on above: Performed By: #### C BC #### [address] [address] NUCLEATED RBC 0.0 /100 WBC Normal 0.0 - 0.0 [facility] Comment on above: Performed By: #### C BC #### [address] [address] Platelets (Bld) [#/Vol] 150 10*3/uL Normal 150 - 450 [facility] Comment on above: Performed By: #### C BC #### [address] [place] [address] RBC 4.29 x10E12/L Low 4.50 - 5.90 [facility] Comment on above: Performed By: #### C BC #### [address] [place] [address] WBC (Bld) [#/Vol] 5.8 10*3/uL Normal 4.4 - 11.3 [facility] Comment on above: Performed By: #### C BC #### [address] [place] [address] Daily Progress Note-Medicine on 02-09-2022 Daily Progress [...] night. Objective Data: Objective Information: T PRBPMAPSpO2 [id number]/448632% Date/Time02/09 8: 8: 8: 8: 8:00 Range(36.4C [...] ----- Mn/Dy/Year TimeIntakeOutputNet Feb 09, 2022 6:00 [id number] Feb 08, 2022 10:00 [id number] Feb 08, 2022 2:00 [id number] The Intake and Output Totals for the last 24 hours are: [facility] [id number] Physical Exam Narrative: Physical Exam: General: Appears [...] & Recom (more content not included)... Normal [facility] Daily Progress Note-Urologyo n 02-09-2022 Daily Progress [...] well. Objective Data: Objective Information: T PRBPMAPSpO2 [id number]/361407% Date/Time02/09 8: 8: 8: 8: 8:00 Range(36.4C [...] Mild ---- Intake and Output ----- Mn/Dy/Year TimeIntakeOutputCounts Include [facility] Feb 09, 2022 6:00 [id number] Feb 08, 2022 10:00 [id number] Feb 08, 2022 2:00 [id number] The Intake and Output Totals for the last 24 hours are: IntakeOutputNet [id number] Physical Exam by System: Constitutional: Well developed, [...] - BUN/SCr slight decrease 25/1.84 today from 31/1.90 yesterday - s/p right nephrectomy #Atrial fibrillation - Can resume coumadin on Wednesday02/11/22 #HTN #CHF - Medicine on consult - ap (more content not included)... Normal [facility] [place] Planning [id number] 04-12-2021 Discharge Planning Note2 Discharge Planning: Needs Prior to Discharge (ex. 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 Patient with no use of HHC or DME prior to admission. Patient currently on 3L of O2 with no prior home O2 use. This TCC verified the patient's ability to obtain/afford medications. Patient's needs are TBD at this time, pending therapy evaluations. Patient lives at home in [place] with Miya and plans to return there. Family to provide transport at the time of d/c. Kitty Farias, RN TCC 02/10- PT recs HHC. This TCC met with the pt at the bedside. Pt is currently refusing HHC, at this time. However, pt wants a walker. This TCC received a walker script and sent a referral to [facility] for delivery. Family to provide transport at the time of d/c. Cameron Atwood Assessment: Discharge Planning Assessment [id number] Discharge Planning Assessment Completed Kevin Farias Primary Contact Name and NumberMiya kaur [phone] Prior Level of FunctioningIndependent Lives Withspouse Stated Reason for Admissionright laparoscopic nephrectomy [place] [facility]CP[place]. Daksha Turner [facility] [place] Recent Falls/ Injury/ Need Assist with Ambulationn/a Home Care Agency/Support ServicesN/A Resource/Environmental Concernsnone Anticipated Transition [facility] Anticipated at Transitionnone Readmission Within the Last 30 Daysno previous admission in last 30 days PCP Last Date Seenlast month InsuranceMMO Super Med Special Considerationsn/a Transportation Home Wilber/Fidel (, Miya [phone]) Medication Adherence/Afford/Obtainye s Discharge Documentation: Discharge/Transfer Date/[id number] 18:00 Discharged Accompanied Byspouse Transportation Methodprivate car Discharge Modewheelchair Code StatusCode Status order at time of discharge: Full Code Discharge Order Writtenyes [place] DNR Form Sent with Patient and/or Familyn/a Valuables/Medications/Bel ongings Returnedyes Final Disposition.Home Electronic Signatures: Kitty Farias (STAFF N) (Signed 09-Feb-2022 11:10) Authored: Discharge Planning, Assessment, Discharge Documentation Cameron Atwood (RN) (Signed 10-Feb-2022 11:44) Authored: Discharge Planning, Discharge Documentation Marysol Hussein (STAFF N) (Signed 10-Feb-2022 18:21) Authored: Discharge Planning, Discharge Documentation Last Updated: 10-Feb-2022 18:21 by Marysol Hussein (STAFF N) Normal [facility] RENAL FUNCTION PANELon 02-09 Albumin [Mass/Vol] 3.5 g/dL Normal 3.4 - 5.0 [facility] Comment on above: Performed By: #### C BC #### [address] [address] Anion gap [Moles/Vol] 10 mmol/L Normal 10 - 20 [facility] Comment on above: Performed By: #### C BC #### [address] [address] Calcium [Mass/Vol] 8.8 mg/dL Normal 8.6 - 10.3 [facility] Comment on above: Performed By: #### C BC #### [address] [address] Chloride [Moles/Vol] 102 mmol/L Normal 98 - 107 [facility] Comment on above: Performed By: #### C BC #### [address] [address] Creatinine [Mass/Vol] 1.84 mg/dL High 0.50 - 1.30 [facility] Comment on above: Performed By: #### C BC #### [address] [address] GFR/1.73 sq M.predicted among non-blacks MDRD (S/P/Bld) [Vol rate/Area] 42 mL/min/{1.73_m2} Abnormal >90 [facility] Comment on above: Result Comment: CALC ULATIONS OF ESTIMATED GFR ARE PERFORMED USING THE 2020 CKD-EPI STUDY REFIT EQUATION WITHOUT THE RACE VARIABLE FOR THE IDMS-TRACEABLE CREATININE METHODS. https://jasn.asnjournals.org/content/early//ASN.2020 970721 Performed By: #### C BC #### [address] [address] Glucose [Mass/Vol] 127 mg/dL High 74 - 99 [facility] Comment on above: Performed By: #### C BC #### [address] [address] HCO3 (Bld) [Moles/Vol] 33 mmol/L High 21 - 32 [facility] [place] Comment on above: Performed By: #### C BC #### [address] [address] Phosphate [Mass/Vol] 2.8 mg/dL Normal 2.5 - 4.9 [facility] Comment on above: Result Comment: The performance characteristics of phosphorus testing in heparinized plasma have been validated by the individual laboratory site where testing is performed. Testing on heparinized plasma is not approved by the FDA; however, such approval is not necessary. Performed By: #### C BC #### [address] [address] Potassium [Moles/Vol] 4.3 mmol/L Normal 3.5 - 5.3 [facility] Comment on above: Performed By: #### C BC #### [address] [address] Sodium [Moles/Vol] 141 mmol/L Normal 136 - 145 [facility] Comment on above: Performed By: #### C BC #### [address] [address] Urea nitrogen [Mass/Vol] 25 mg/dL High 6 - 23 [facility] Comment on above: Performed By: #### C BC #### [address] [address] CBCon 02-08-2022 Erythrocyte distribution width (RBC) [Ratio] 19.7 % High 11.5 - 14.5 [facility] Comment on above: Performed By: #### C BC #### [address] [address] Hematocrit (Bld) [Volume fraction] 46.7 % Normal 41.0 - 52.0 [facility] Comment on above: Performed By: #### C BC #### [address] [place] [address] Hemoglobin (Bld) [Mass/Vol] 14.0 g/dL Normal 13.5 - 17.5 [facility] Comment on above: Performed By: #### C BC #### [address] [place] [address] MCHC (RBC) [Mass/Vol] 30.0 g/dL Low 32.0 - 36.0 [facility] Comment on above: Performed By: #### C BC #### [address] [place] [address] MCV (RBC) [Entitic vol] 106 fL High 80 - 100 [facility] Comment on above: Performed By: #### C BC #### [address] [place] [address] NUCLEATED RBC 0.3 /100 WBC Normal 0.0 - 0.0 [facility] Comment on above: Performed By: #### C BC #### [address] [place] [address] Platelets (Bld) [#/Vol] 123 10*3/uL Low 150 - 450 [facility] Comment on above: Performed By: #### C BC #### [address] [place] [address] RBC 4.42 x10E12/L Low 4.50 - 5.90 [facility] Comment on above: Performed By: #### C BC #### [address] [address] WBC (Bld) [#/Vol] 6.8 10*3/uL Normal 4.4 - 11.3 [facility] Comment on above: Performed By: #### C BC #### [address] [address] COMPREHENSIVE PANELon 2021 Albumin [Mass/Vol] 3.5 g/dL Normal 3.4 - 5.0 [facility] Comment on above: Performed By: #### C MP #### [address] [address] ALP [Catalytic activity/Vol] 54 U/L Normal 33 - 120 [facility] Comment on above: Performed By: #### C MP #### [address] [address] ALT [Catalytic activity/Vol] 121 U/L High 10 - 52 [facility] Comment on above: Result Comment: Hyun ents treated with Sulfasalazine may generate falsely decreased results for ALT. Performed By: #### C MP #### [address] [address] Anion gap [Moles/Vol] 14 mmol/L Normal 10 - 20 [facility] Comment on above: Performed By: #### C MP #### [address] [address] AST [Catalytic activity/Vol] 83 U/L High 9 - 39 [facility] Comment on above: Result Comment: MILD HEMOLYSIS DETECTED. The result may be falsely elevated due to hemolysis or other interferents. Clinical correlation is recommended. Repeat testing may be considered. Performed By: #### C MP #### [address] [address] Bilirubin [Mass/Vol] 0.9 mg/dL Normal 0.0 - 1.2 [facility] Comment on above: Performed By: #### C MP #### [address] [address] Calcium [Mass/Vol] 8.5 mg/dL Low 8.6 - 10.3 [facility] Comment on above: Performed By: #### C MP #### [address] [address] Chloride [Moles/Vol] 103 mmol/L Normal 98 - 107 [facility] Comment on above: Performed By: #### C MP #### [address] [address] Creatinine [Mass/Vol] 1.90 mg/dL High 0.50 - 1.30 [facility] Comment on above: Performed By: #### C MP #### [address] [address] GFR/1.73 sq M.predicted among non-blacks MDRD (S/P/Bld) [Vol rate/Area] 40 mL/min/{1.73_m2} Abnormal >90 [facility] Comment on above: Result Comment: CALC ULATIONS OF ESTIMATED GFR ARE PERFORMED USING THE 2020 CKD-EPI STUDY REFIT EQUATION WITHOUT THE RACE VARIABLE FOR THE IDMS-TRACEABLE CREATININE METHODS. https://jasn.asnjournals.org/content/early//ASN.2020 076339 Performed By: #### C MP #### [address] [address] Glucose [Mass/Vol] 92 mg/dL Normal 74 - 99 [facility] Comment on above: Performed By: #### C MP #### [address] [address] HCO3 (Bld) [Moles/Vol] 24 mmol/L Normal 21 - 32 [facility] [place] Comment on above: Performed By: #### C MP #### [address] [address] Potassium [Moles/Vol] 4.2 mmol/L Normal 3.5 - 5.3 [facility] Comment on above: Result Comment: MILD HEMOLYSIS DETECTED. The result may be falsely elevated due to hemolysis or other interferents. Clinical correlation is recommended. Repeat testing may be considered. Performed By: #### C MP #### [address] [address] Protein [Mass/Vol] 6.0 g/dL Low 6.4 - 8.2 [facility] Comment on above: Performed By: #### C MP #### [address] [address] Sodium [Moles/Vol] 137 mmol/L Normal 136 - 145 [facility] Comment on above: Performed By: #### C MP #### [facility] [address] [place] [address] Urea nitrogen [Mass/Vol] 31 mg/dL High 6 - 23 [facility] Comment on above: Performed By: #### C MP #### [address] [place] [address] Daily Progress Note-Medicine on 02-08-2022 Daily Progress [...] night. Objective Data: Objective Information: T PRBPMAPSpO2 [id number]/[id number] % Date/Time02/08 8: 8: 8: 8: 11: [...] ----- Mn/Dy/Year TimeIntakeOutputNet Feb 08, 2022 6:00 [id number] Feb 07, 2022 10:00 [id number] Feb 07, 2022 2:00 pm228.8250-22 The Intake and Output Totals for the last 24 hours are: IntakeOutputNet [id number] Physical Exam Narrative: Physical Exam: General: Appears [...] # Atelectasi (more content not included)... Normal [facility] Daily Progress Note-Urologyo n 02-08-2022 Daily Progress [...] complaints. Objective Data: Objective Information: T PRBPMAPSpO2 [id number]/[id number] % Date/Time02/08 8: 8: 8: 8: 11: [...] ----- Mn/Dy/Year TimeIntakeOutputNet Feb 08, 2022 6:00 [id number] Feb 07, 2022 10:00 [id number] Feb 07, 2022 2:00 pm228.8250-22 The Intake and Output Totals for the last 24 hours are: IntakeOutputNet [id number] Physical Exam Narrative: Physical Exam: General: in [...] Updated: 08-Feb-2022 10:32 by Andre Mota) Normal [facility] ARTERIAL FULL PANELon 2021 OXY HGB 92.9 % Low 94.0 - 98.0 [facility] Comment on above: Result Comment: Test report [...] 08:50 Performed By: #### C BC #### [facility] [address] [facility] [place] [address] SO2 93 % Low 94 - 100 [facility] Comment on above: Result Comment: Test report [...] 08:50 Performed By: #### C BC #### [address] [address] LANRE'S TEST[COLLATERAL CIRCULATION] YES, RR Normal [facility] Comment on above: Performed By: #### C BC #### [address] [address] Anion gap [Moles/Vol] 9 mmol/L Low 10 - 25 [facility] Comment on above: Performed By: #### C BC #### [address] [address] BASE EXCESS-BLOOD 2.9 mmol/L Normal -2.0 - 3.0 [facility] Comment on above: Performed By: #### C BC #### [address] [address] BICARB, CALCULATED 31.0 mmol/L High 22.0 - 26.0 [facility] Comment on above: Performed By: #### C BC #### [address] [address] CALCIUM,IONIZED 1.17 mmol/L Normal 1.10 - 1.33 [facility] Comment on above: Performed By: #### C BC #### [address] [address] Chloride [Moles/Vol] 105 mmol/L Normal 98 - 107 [facility] Comment on above: Performed By: #### C BC #### [address] [address] EPAP CMH2O 8.0 cm H2O Normal [facility] Comment on above: Performed By: #### C BC #### [address] [address] FLOW 8.0 LPM Normal [facility] Comment on above: Performed By: #### C BC #### [address] [address] Glucose [Mass/Vol] 117 mg/dL High 74 - 99 [facility] Comment on above: Performed By: #### C BC #### [address] [address] Hematocrit (Bld) [Volume fraction] 40.0 % Low 41.0 - 52.0 [facility] Comment on above: Performed By: #### C BC #### [address] [address] Hemoglobin (Bld) [Mass/Vol] 13.2 g/dL Normal 13.5 - 17.5 [facility] Comment on above: Result Comment: Test report has been amended to note detection of an absorbance or turbidity error which may cause inaccurate results. The result is unchanged but should be interpreted with caution and in conjunction with additional laboratory information. Performed By: #### C BC #### [address] [address] IPAP CMH2O 16.0 cm H2O Normal [facility] Comment on above: Performed By: #### C BC #### [address] [address] Lactate [Moles/Vol] 0.9 mmol/L Normal 0.4 - 2.0 [facility] Comment on above: Performed By: #### C BC #### [address] [address] Oxygen (Bld) [Partial pressure] 95 mm[Hg] Normal 85 - 95 [facility] Comment on above: Performed By: #### C BC #### [address] [address] PATIENT TEMPERATURE 37.0 degrees C Normal [facility] Comment on above: Result Comment: NOTE : PATIENT RESULTS ARE NOT CORRECTED FOR TEMPERATURE. Performed By: #### C BC #### [address] [address] PCO2 63 mmHg High 38 - 42 [facility] Comment on above: Performed By: #### C BC #### [facility] [address] [facility] [place] [place] [address] pH (Bld) 7.30 [pH] Low 7.38 - 7.42 [facility] Comment on above: Performed By: #### C BC #### [facility] [address] [place] [address] Potassium [Moles/Vol] 4.6 mmol/L Normal 3.5 - 5.3 [facility] Comment on above: Performed By: #### C BC #### [facility] [address] [place] [address] Sodium [Moles/Vol] 140 mmol/L Normal 136 - 145 [facility] Comment on above: Performed By: #### C BC #### [facility] [id number] [place] [address] VENTILATOR MODE BiPAP Normal [facility] Comment on above: Performed By: #### C BC #### [address] [address] LANRE'S TEST[COLLATERAL CIRCULATION] N/A Normal [facility] Comment on above: Order Comment: BIPAP 14/8 4 LPM Performed By: #### A FPA4 ####[facility] [place] [address] Anion gap [Moles/Vol] 11 mmol/L Normal 10 - 25 [facility] Comment on above: Order Comment: BIPAP 14/8 4 LPM Performed By: #### A FPA4 ####[facility] [place] [address] BASE EXCESS-BLOOD 1.5 mmol/L Normal -2.0 - 3.0 [facility] Comment on above: Order Comment: BIPAP 14/8 4 LPM Performed By: #### A FPA4 ####[facility] [place] [address] BICARB, CALCULATED 30.3 mmol/L High 22.0 - 26.0 [facility] Comment on above: Order Comment: BIPAP 14/8 4 LPM Performed By: #### A FPA4 ####[address] [address] CALCIUM,IONIZED 1.18 mmol/L Normal 1.10 - 1.33 [facility] Comment on above: Order Comment: BIPAP 14 4 LPM Performed By: #### A FPA4 ####[address] [address] Chloride [Moles/Vol] 104 mmol/L Normal 98 - 107 [facility] Comment on above: Order Comment: BIPAP 14 4 LPM Performed By: #### A FPA4 ####[address] [address] Glucose [Mass/Vol] 168 mg/dL High 74 - 99 [facility] Comment on above: Order Comment: BIPAP 19/10 4 LPM Performed By: #### A FPA4 ####[address] [address] Hematocrit (Bld) [Volume fraction] 42.0 % Normal 41.0 - 52.0 [facility] Comment on above: Order Comment: BIPAP 19/10 4 LPM Performed By: #### A FPA4 ####[address] [address] Hemoglobin (Bld) [Mass/Vol] 14.1 g/dL Normal 13.5 - 17.5 [facility] Comment on above: Order Comment: BIPAP 19/10 4 LPM Performed By: #### A FPA4 ####[address] [address] Lactate [Moles/Vol] 0.9 mmol/L Normal 0.4 - 2.0 [facility] Comment on above: Order Comment: BIPAP 14/ 4 LPM Performed By: #### A FPA4 ####[address] [address] OXY HGB 87.0 % Low 94.0 - 98.0 [facility] Comment on above: Order Comment: BIPAP 14/ 4 LPM Performed By: #### A FPA4 ####[address] [address] Oxygen (Bld) [Partial pressure] 63 mm[Hg] Low 85 - 95 [facility] Comment on above: Order Comment: BIPAP 14/8 4 LPM Performed By: #### A FPA4 ####[address] [address] PATIENT TEMPERATURE 37.0 degrees C Normal [facility] Comment on above: Order Comment: BIPAP 14/8 4 LPM Result Comment: NOTE : PATIENT RESULTS ARE NOT CORRECTED FOR TEMPERATURE. Performed By: #### A FPA4 ####[address] [address] PCO2 66 mmHg High 38 - 42 [facility] Comment on above: Order Comment: BIPAP 14/8 4 LPM Performed By: #### A FPA4 ####[address] [address] pH (Bld) 7.27 [pH] Low 7.38 - 7.42 [facility] Comment on above: Order Comment: BIPAP 14/8 4 LPM Performed By: #### A FPA4 ####[address] [address] Potassium [Moles/Vol] 4.4 mmol/L Normal 3.5 - 5.3 [facility] Comment on above: Order Comment: BIPAP 14/8 4 LPM Performed By: #### A FPA4 ####[address] [address] SO2 89 % Low 94 - 100 [facility] Comment on above: Order Comment: BIPAP 14/8 4 LPM Performed By: #### A FPA4 ####[address] [address] Sodium [Moles/Vol] 141 mmol/L Normal 136 - 145 [facility] Comment on above: Order Comment: BIPAP 14/8 4 LPM Performed By: #### A FPA4 ####[address] [address] CBCon 02-07-2022 Erythrocyte distribution width (RBC) [Ratio] 19.1 % High 11.5 - 14.5 [facility] Comment on above: Performed By: #### C BC ####[address] [address] Hematocrit (Bld) [Volume fraction] 43.1 % Normal 41.0 - 52.0 [facility] Comment on above: Performed By: #### C BC ####[address] [address] Hemoglobin (Bld) [Mass/Vol] 13.6 g/dL Normal 13.5 - 17.5 [facility] Comment on above: Performed By: #### C BC ####[address] [address] MCHC (RBC) [Mass/Vol] 31.6 g/dL Low 32.0 - 36.0 [facility] Comment on above: Performed By: #### C BC ####[address] [address] MCV (RBC) [Entitic vol] 100 fL Normal 80 - 100 [facility] [place] on above: Performed By: #### C BC ####[address] [address] NUCLEATED RBC 0.4 /100 WBC Normal 0.0 - 0.0 [facility] Comment on above: Performed By: #### C BC ####[address] [address] Platelets (Bld) [#/Vol] 150 10*3/uL Normal 150 - 450 [facility] Comment on above: Performed By: #### C BC ####[address] [address] RBC 4.32 x10E12/L Low 4.50 - 5.90 [facility] Comment on above: Performed By: #### C BC ####[address] [address] WBC (Bld) [#/Vol] 7.1 10*3/uL Normal 4.4 - 11.3 [facility] Comment on above: Performed By: #### C ####[facility] [facility] [place] [address] Consult-DACLissett Amador Consult-DACR, Medicine Service: Service: DACR Medicine Consult: [...] Mushrooms: Unknown Objective: Objective Information: T PRBPMAPSpO2 Value37.3070165/468337% Date/Time02/07 16: 16: 16: 16:3 11:3 16:00 Range(35.9C - 37.1C ) (73 - 100 ) (15 - 30 ) (93 - 141 )/ (70 - 99 ) (75 - 125 ) (83% - 99% ) As of 07-Feb-2022 16:00:00, patient is on 4 L/min of oxygen via nasal cannula. Highest temp of 37.1 C was recorded at 02/07 16:00 Physical Exam Narrative: Physical Exam: General: [...] 2.9 Bi (more content not included)... Normal [facility] Daily Progress Note - Critic joi Farmer 02-07-2022 Daily Progress Note - Critical Care Subjective Data: ID Statement: YEFRI YANEZ is a 57 year old Male who is Hospital Day # 2 and ICU Day #2 and POD #1 for laparoscopic right radical nephrectomy. AAOx3, on nasal cannula. No complaints of pain on exam. Resting comfortably. Objective Data: Objective Information T PRBPMAPSpO2 [id number]% Date/Time02/07 4: 7: 7: 7: 7: 7:00 [...] None ---- Intake and Output ----- Mn/Dy/[facility]Out[facility] Feb 07, 2022 6:00 [phone] Feb 06, 2022 10:00 [phone] The Intake and Output Totals for the last 24 hours are: [facility] [id number] Drain and tube details (included in I&O totals) 1100 cc Indwelling Catheter - Urethral( 07-Feb-2022 06:00:00 ) Date: Weight/Scale Type: 07-Feb-2022 06:43280.7 kg / bed 06-Feb-2022 09:91020 kg 06-Feb-2022 09:29958 kg Physical Exam by System: Neurological: alert [...] h range: ( 7.26 - 7.45 ) [id number] 24 h range: ( 46 - 68 ) SO293 24 h range: ( 87 (more content not included)... Normal [facility] [place] Progress Note-Urologyo n 02-07-2022 Daily Progress [...] noted. Objective Data: Objective Information: T PRBPMAPSpO2 [id number]% Date/Time02/07 4: 7: 7: 7: 7: 7:00 [...] None ---- Intake and Output ----- Mn/Dy/[facility]Int[facility]Out[facility] Feb 07, 2022 6:00 [phone] Feb 06, 2022 10:00 [phone] The Intake and Output Totals for the last 24 hours are: IntakeOutputNet [id number] Physical Exam Narrative: Physical Exam: General: in [...] h range: ( 7.26 - 7.45 ) [id number] 24 h range: ( 46 - 68 [...] Updated: 07-Feb-2022 07:33 by Andre Mota) Normal [facility] GLUCOSE-POCTon 02-07-2022 Glucose [Mass/Vol] 124 mg/dL High 74 - 99 [facility] Comment on above: Performed By: #### G STEFANI ####[facility] [place] [address] MAGNESIUMon 02-07-2022 Magnesium [Mass/Vol] 1.98 mg/dL Normal 1.60 - 2.40 [facility] Comment on above: Performed By: #### M G ####[facility] [place] [address] RENAL FUNCTION PANELon 02-07 Albumin [Mass/Vol] 3.7 g/dL Normal 3.4 - 5.0 [facility] Comment on above: Performed By: #### R ENAL #### [facility] [address] [place] [address] Anion gap [Moles/Vol] 14 mmol/L Normal 10 - 20 [facility] Comment on above: Performed By: #### R ENAL #### [address] [place] [address] Calcium [Mass/Vol] 8.4 mg/dL Low 8.6 - 10.3 [facility] Comment on above: Performed By: #### R ENAL #### [address] [place] [address] Chloride [Moles/Vol] 107 mmol/L Normal 98 - 107 [facility] Comment on above: Performed By: #### R ENAL #### [address] [place] [address] Creatinine [Mass/Vol] 1.57 mg/dL High 0.50 - 1.30 [facility] Comment on above: Performed By: #### R ENAL #### [address] [place] [address] GFR/1.73 sq M.predicted among non-blacks MDRD (S/P/Bld) [Vol rate/Area] 51 mL/min/{1.73_m2} Abnormal >90 [facility] Comment on above: Result Comment: CALC ULATIONS OF ESTIMATED GFR ARE PERFORMED USING THE 2020 CKD-EPI STUDY REFIT EQUATION WITHOUT THE RACE VARIABLE FOR THE IDMS-TRACEABLE CREATININE METHODS. https://jasn.asnjournals.org/content/early/ASN.2020 161958 Performed By: #### R ENAL #### [address] [place] [address] Glucose [Mass/Vol] 115 mg/dL High 74 - 99 [facility] Comment on above: Performed By: #### R ENAL #### [address] [place] [address] HCO3 (Bld) [Moles/Vol] 29 mmol/L Normal 21 - 32 [facility] Comment on above: Performed By: #### R ENAL #### [address] [place] [address] Phosphate [Mass/Vol] 6.1 mg/dL High 2.5 - 4.9 [facility] Comment on above: Result Comment: The performance characteristics of phosphorus testing in heparinized plasma have been validated by the individual laboratory site where testing is performed. Testing on heparinized plasma is not approved by the FDA; however, such approval is not necessary. Performed By: #### R ENAL #### [address] [place] [address] Potassium [Moles/Vol] 4.6 mmol/L Normal 3.5 - 5.3 [facility] Comment on above: Performed By: #### R ENAL #### [address] [place] [address] Sodium [Moles/Vol] 145 mmol/L Normal 136 - 145 [facility] Comment on above: Performed By: #### R ENAL #### [address] [place] [address] Urea nitrogen [Mass/Vol] 25 mg/dL High 6 - 23 [facility] Comment on above: Performed By: #### R ENAL #### [address] [address] ABO/RH GROUP TESTon 02-07-20 22 ABO TYPE Canceled Normal [facility] Comment on above: Order Comment: TEST ABO/RH GROUP TEST WAS CANCELLED, 02/06/2022 15:57 not needed. Performed By: #### C BC #### [address] [address] RH TYPE Canceled [facility] Comment on above: Order Comment: TEST ABO/RH GROUP TEST WAS CANCELLED, 02/06/2022 15:57 not needed. Performed By: #### C BC #### [address] [place] [address] ARTERIAL FULL PANELon 2021 LANRE'S TEST[COLLATERAL CIRCULATION] N/A Normal [facility] Comment on above: Order Comment: 4 LPM NC Performed By: #### A FPA4 #### [address] [place] [address] Anion gap [Moles/Vol] 10 mmol/L Normal 10 - 25 [facility] Comment on above: Order Comment: 4 LPM NC Performed By: #### A FPA4 #### [address] [place] [address] BASE EXCESS-BLOOD 1.4 mmol/L Normal -2.0 - 3.0 [facility] Comment on above: Order Comment: 4 LPM NC Performed By: #### A FPA4 #### [address] [place] [address] BICARB, CALCULATED 30.5 mmol/L High 22.0 - 26.0 [facility] Comment on above: Order Comment: 4 LPM NC Performed By: #### A FPA4 #### [address] [address] CALCIUM,IONIZED 1.17 mmol/L Normal 1.10 - 1.33 [facility] Comment on above: Order Comment: 4 LPM NC Performed By: #### A FPA4 #### [address] [address] Chloride [Moles/Vol] 105 mmol/L Normal 98 - 107 [facility] Comment on above: Order Comment: 4 LPM NC Performed By: #### A FPA4 #### [address] [address] Glucose [Mass/Vol] 142 mg/dL High 74 - 99 [facility] Comment on above: Order Comment: 4 LPM NC Performed By: #### A FPA4 #### [address] [address] Hematocrit (Bld) [Volume fraction] 43.0 % Normal 41.0 - 52.0 [facility] Comment on above: Order Comment: 4 LPM NC Performed By: #### A FPA4 #### [address] [address] Hemoglobin (Bld) [Mass/Vol] 14.3 g/dL Normal 13.5 - 17.5 [facility] Comment on above: Order Comment: 4 LPM NC Performed By: #### A FPA4 #### [address] [address] Lactate [Moles/Vol] 1.0 mmol/L Normal 0.4 - 2.0 [facility] Comment on above: Order Comment: 4 LPM NC Performed By: #### A FPA4 #### [address] [address] OXY HGB 84.3 % Low 94.0 - 98.0 [facility] Comment on above: Order Comment: 4 LPM NC Performed By: #### A FPA4 #### [address] [address] Oxygen (Bld) [Partial pressure] 60 mm[Hg] Low 85 - 95 [facility] Comment on above: Order Comment: 4 LPM NC Performed By: #### A FPA4 #### [address] [address] PATIENT TEMPERATURE 37.0 degrees C Normal [facility] Comment on above: Order Comment: 4 LPM NC Result Comment: NOTE : PATIENT RESULTS ARE NOT CORRECTED FOR TEMPERATURE. Performed By: #### A FPA4 #### [address] [address] PCO2 68 mmHg High 38 - 42 [facility] Comment on above: Order Comment: 4 LPM NC Performed By: #### A FPA4 #### [address] [address] pH (Bld) 7.26 [pH] Low 7.38 - 7.42 [facility] Comment on above: Order Comment: 4 LPM NC Performed By: #### A FPA4 #### [address] [address] Potassium [Moles/Vol] 4.0 mmol/L Normal 3.5 - 5.3 [facility] Comment on above: Order Comment: 4 LPM NC Performed By: #### A FPA4 #### [address] [address] SO2 87 % Low 94 - 100 [facility] Comment on above: Order Comment: 4 LPM NC Performed By: #### A FPA4 #### [address] [address] Sodium [Moles/Vol] 141 mmol/L Normal 136 - 145 [facility] Comment on above: Order Comment: 4 LPM NC Performed By: #### A FPA4 #### [address] [address] Anion gap [Moles/Vol] 6 mmol/L Low 10 - 25 [facility] Comment on above: Performed By: #### A FPA4 ####[address] [address] BASE EXCESS-BLOOD 6.9 mmol/L High -2.0 - 3.0 [facility] Comment on above: Performed By: #### A FPA4 ####[address] [address] BICARB, CALCULATED 32.0 mmol/L High 22.0 - 26.0 [facility] Comment on above: Performed By: #### A FPA4 ####[address] [address] CALCIUM,IONIZED 1.16 mmol/L Normal 1.10 - 1.33 [facility] Comment on above: Performed By: #### A FPA4 ####[address] [address] Chloride [Moles/Vol] 106 mmol/L Normal 98 - 107 [facility] Comment on above: Performed By: #### A FPA4 ####[address] [address] Glucose [Mass/Vol] 146 mg/dL High 74 - 99 [facility] Comment on above: Performed By: #### A FPA4 ####[address] [address] Hematocrit (Bld) [Volume fraction] 42.0 % Normal 41.0 - 52.0 [facility] Comment on above: Performed By: #### A FPA4 ####[address] [address] Hemoglobin (Bld) [Mass/Vol] 14.1 g/dL Normal 13.5 - 17.5 [facility] Comment on above: Performed By: #### A FPA4 ####[address] [address] Lactate [Moles/Vol] 1.2 mmol/L Normal 0.4 - 2.0 [facility] Comment on above: Performed By: #### A FPA4 ####[address] [address] OXY HGB 95.3 % Normal 94.0 - 98.0 [facility] Comment on above: Performed By: #### A FPA4 ####[address] [address] Oxygen (Bld) [Partial pressure] 84 mm[Hg] Low 85 - 95 [facility] Comment on above: Performed By: #### A FPA4 ####[address] [address] PATIENT TEMPERATURE 37.0 degrees C Normal [facility] Comment on above: Result Comment: NOTE : PATIENT RESULTS ARE NOT CORRECTED FOR TEMPERATURE. Performed By: #### A FPA4 ####[address] [address] PCO2 46 mmHg High 38 - 42 [facility] Comment on above: Performed By: #### A FPA4 ####[address] [address] pH (Bld) 7.45 [pH] High 7.38 - 7.42 [facility] Comment on above: Performed By: #### A FPA4 ####[address] [address] Potassium [Moles/Vol] 3.4 mmol/L Low 3.5 - 5.3 [facility] Comment on above: Performed By: #### A FPA4 ####[address] [address] SO2 98 % Normal 94 - 100 [facility] Comment on above: Performed By: #### A FPA4 ####[address] [address] Sodium [Moles/Vol] 141 mmol/L Normal 136 - 145 [facility] Comment on above: Performed By: #### A FPA4 ####[address] [place] [address] CBCon 02-06-2022 Erythrocyte distribution width (RBC) [Ratio] 19.0 % High 11.5 - 14.5 [facility] Comment on above: Performed By: #### C BC #### [address] [place] [address] Hematocrit (Bld) [Volume fraction] 42.4 % Normal 41.0 - 52.0 [facility] Comment on above: Performed By: #### C BC #### [address] [place] [address] Hemoglobin (Bld) [Mass/Vol] 13.5 g/dL Normal 13.5 - 17.5 [facility] Comment on above: Performed By: #### C BC #### [address] [address] MCHC (RBC) [Mass/Vol] 31.8 g/dL Low 32.0 - 36.0 [facility] Comment on above: Performed By: #### C BC #### [address] [address] MCV (RBC) [Entitic vol] 99 fL Normal 80 - 100 [facility] Comment on above: Performed By: #### C BC #### [address] [address] NUCLEATED RBC 0.6 /100 WBC Normal 0.0 - 0.0 [facility] Comment on above: Performed By: #### C BC #### [address] [address] Platelets (Bld) [#/Vol] 137 10*3/uL Low 150 - 450 [facility] Comment on above: Performed By: #### C BC #### [address] [place] [address] RBC 4.29 x10E12/L Low 4.50 - 5.90 [facility] Comment on above: Performed By: #### C BC #### [address] [address] WBC (Bld) [#/Vol] 6.9 10*3/uL Normal 4.4 - 11.3 [facility] Comment on above: Performed By: #### C BC #### [facility] [address] [place] [address] Clinical Intervention - Ginna kaneaparna 02-06-2022 Clinical Intervention - Pharmacy Pharmacist's Clinical Intervention: Is this intervention medication reconciliation related: yes, History Electronic Signatures: Andrés Bañuelos ([employer]) (Signed 06-Feb-2022 18:53) Authored: Pharmacist's Clinical Intervention Last Updated: 06-Feb-2022 18:53 by Andrés Bañuelos ([employer]) Normal [facility] Consult-Critical Careon 12-0 Consult-Critical Care Service: Service: [...] MAP >70 (more content not included)... Normal [facility] Discharge [id number] Discharge Profile2 Discharge Orders: Anticipated Discharge Date: Anticipated Discharge [id number] Problem List: Admitting Dx: Renal cell carcinoma: [...] TO WORK. You should return to work 19-Dec-2022. - DIET - You may resume a [...] WORRISOME - NOTIFY YOUR PHYSICIAN OR RESIDENT CERTIFIED PESTICIDE APPLICATOR. - Fever greater than 101 F or 38.3 C, chills, nausea, vomiting, or feeling ill. - Inability to urinate. - Drainage of foul smelling fluid (pus) from the incision or drain sites. - Excruciating pain that is not controlled by prescription or azfj-ehz-rtuqtce medications. - You were sent home on [...] appointments, please call our Main Office at [phone]. Provider FINAL REVIEW of Orders: Final Review: Final Review of Medication Reconciliation and Orders Completedby Physician Reviewing ProviderClau Diallo MD (Resident) at 06-Feb-2022 13:52:19 Appointments: Follow-Up Appointment 01: Physician/Dept/ServiceDr. Hernandez Reason for Referralpost op follow up Call to Schedule in2 weeks Phone [phone] CommentsPlease call to schedule appointment Follow-Up Appointment 02: Physician/Dept/[facility] physician Reason for ReferralHospital follow up - blood pressure Call to Schedule in2-3 days CommentsPlease call to schedule Electronic Signatures: Gini Escalante (FURNACE ERECTOR-CONCRETE MIXER OPERATOR HELPER) (Signed 10-Feb-2022 11:42) Authored: Discharge Orders, Appointments Clau Diallo (Resident)) (Signed 06-Feb-2022 13:52) Authored: Discharge Orders, Urology, Provider FINAL REVIEW of Orders, Gold Form - Accounting Technician Summary Last Updated: 10-Feb-2022 11:42 by Gini Escalante (FURNACE ERECTOR-[facility]) Normal [facility] GLUCOSE-POCTon 02-06-2022 Glucose [Mass/Vol] 133 mg/dL High 74 - 99 [facility] Comment on above: Performed By: #### G STEFANI #### [facility] [address] [facility] [place] [address] Order Reconciliationon 02-06 Order Reconciliation Page 1 Discharge Reconciliation Document Reconciliation Type: Discharge requested on behalf of Gini Escalante (Advanced Practice Nurse) done by Gini Escalante (FURNACE ERECTOR-[facility]) Discharge - Reconciliation: 06-Feb-2022 13:48 by: Clau Diallo ( (Resident)) Discharge - Reset to Incomplete: 09-Feb-2022 12:41 by: Gini Escalante (FURNACE ERECTOR-CONCRETE MIXER OPERATOR HELPER) Discharge - Partial Reconciliation: 09-Feb-2022 12:42 by: Gini Escalante (FURNACE ERECTOR-[facility]) Discharge - Partial Reconciliation: 10-Feb-2022 11:06 by: Luís Siegel ( (Resident)) Discharge - Partial Reconciliation: 10-Feb-2022 11:17 by: Luís Siegel (DO (Resident)) Discharge - Reconciliation: 10-Feb-2022 11:21 by: Gini Escalante ([facility]NACE ERECTOR[facility]) Home Medications EnteredHOME MEDICATIONS AT DISCHARGE [...] not requir (more content not included)... Normal [facility] Order Reconciliation Page 1 Admission Reconciliation Document Reconciliation Type: Admission from OR requested on behalf of Clau Diallo (Resident) done by Clau Diallo ( (Resident)) Admission from OR - Reconciliation: 06-Feb-2022 13:42 by: Clau Diallo ( (Resident)) Home MedicationsEnteredLast Dose TakenReconciled with current Order Reconciliation Comment/ Additional Information Cabometyx 20 mg oral tablet 1 tab(s) orally once a [id number] AM Reviewed and Held carvedilol 6.25 mg oral tablet 1 tab(s) orally once a [id number]-Feb-2022 AM Carvedilol - PEDS Tablet (COREG)DOSE = 6.25 mg Oral DailyCa.0543 mg/Kg/DOSE x 115 Kg = 6.25 mg/Dose (Daily Total is 6.25 mg) Weight type: Med Calc Weightcarvedilol 6.25 mg oral tablet continued as the inpatient order Carvedilol - PEDS cyclobenzaprine 10 mg oral tablet 1 tab(s) orally 3 times a [id number]-[id number]-Feb-2022 AM Cyclobenzaprine Tablet (FLEXERIL)DOSE = 10 mg Oral 3 Times a Daycyclobenzaprine 10 mg oral tablet continued as the inpatient order Cyclobenzaprine ibuprofen 800 mg oral tablet 1 tab(s) orally 3 times a day, As Needed 2021 Reviewed and Held lovastatin 10 mg oral tablet 1 tab(s) orally once a [id number] Atorvastatin Tablet (LIPITOR)DOSE = 10 mg Oral At Bedtimelovastatin 10 mg oral tablet continued as the inpatient order Atorvastatin pantoprazole 40 mg oral delayed release tablet 1 tab(s) orally once a day [id number] Pantoprazole Enteric Coated Tablet (PROTONIX)DOSE = 40 mg Oral Dailypantoprazole 40 mg oral delayed release tablet continued as the inpatient order Pantoprazole spironolactone 25 mg oral tablet 1 tab(s) orally once a [id number]-[id number]-Feb-2022 AM Spironolactone Tablet (ALDACTONE)DOSE = 25 mg Oral Daily spironolactone 25 mg oral tablet continued as the inpatient order Spironolactone warfarin 5 mg oral tablet 1 tab(s) orally once a [id number] Reviewed and Held Additional Current Orders Acetaminophen [...] micrograms r (more content not included)... Normal [facility] PT/INRon 02-06-2022 PT Coag (PPP) [Time] 14.3 s High 9.8 - 13.4 [facility] Comment on above: Performed By: #### P TINR ####[address] [address] PT, INR 1.2 High 0.9 - 1.1 [facility] Comment on above: Performed By: #### P TINR ####[address] [address] Patient Profile - Preop v3on 02-06-2022 Patient Profile - Preop v3 Patient Profile - Preop: Initial Info: Patient DemographicsName: YEFRI YANEZ Date: 1965 Address[facility] [place] [address] Primary Phone [phone] Instructions Givenanticoagulant meds - patient advised to consult ordering provider, appropriate clothing, bring glasses/contacts case, bring list of medications, center location, diabetes meds - patient advised to consult ordering provider, insurance information, remove jewerly/piercings How to be AddressedTHOMAS Spoken Language PreferredEnglish Source of Informationpatient Stated Reason for AdmissionREMOVAL OF RIGHT KIDNEY Primary Contact Name and Numberstere [phone] Limitations on Visitors/Phone Callsnone Medications Brought to Hospitalno General Health: Weight in kg115 kilogram(s) Weight in fhe868.5 pound(s) Weight Methodstated Scale Typechair Height in feet5 feet Height in inch(es) Height in cm177.8 centimeter(s) Height Methodstated BMI (kg/m2)36.377 square meter Patient or Family Member Reaction to Anesthesianever had anesthesia Blood Avoidance/Restrictionsnon e Previous Transfusion Reactionnever had blood Health Mgmt: Symptoms/Conditions [facility] list Barriers to Managing Healthnone Relationship/Environ: Lives Withspouse Living Arrangementshouse Resource/Environmental Concernsnone Anticipated Transition [facility]tic[facility] at [facility] Tobacco Use: Tobacco Useyes Last Tobacco [id number]-5274 Tobacco CommentCIGARS, VAPING Pre-op Checklist: Arrival [id number] Arrival Time10:02 Procedure TypeRT LAPAROSCOPIC NEPHRECTOMY NPOyes Last Food Mkygrl61-Oyb-3512 19:30 Last Clear Fluid [id number]-Pub-8910 06:30 ID Band On Patientpatient ID (name), [...] Information Last Updated: 06-Feb-2022 10:06 by Ivette Elizondo (RN) Normal [facility] RENAL FUNCTION PANELon 02-06 Albumin [Mass/Vol] 3.8 g/dL Normal 3.4 - 5.0 [facility] Comment on above: Performed By: #### C BC #### [address] [address] Anion gap [Moles/Vol] 10 mmol/L Normal 10 - 20 [facility] Comment on above: Performed By: #### C BC #### [address] [address] Calcium [Mass/Vol] 8.6 mg/dL Normal 8.6 - 10.3 [facility] Comment on above: Performed By: #### C BC #### [address] [address] Chloride [Moles/Vol] 106 mmol/L Normal 98 - 107 [facility] Comment on above: Performed By: #### C BC #### [address] [address] Creatinine [Mass/Vol] 1.38 mg/dL High 0.50 - 1.30 [facility] Comment on above: Performed By: #### C BC #### [address] [address] GFR/1.73 sq M.predicted among non-blacks MDRD (S/P/Bld) [Vol rate/Area] 59 mL/min/{1.73_m2} Abnormal >90 [facility] Comment on above: Result Comment: CALC ULATIONS OF ESTIMATED GFR ARE PERFORMED USING THE 2020 CKD-EPI STUDY REFIT EQUATION WITHOUT THE RACE VARIABLE FOR THE IDMS-TRACEABLE CREATININE METHODS. https://jasn.asnjournals.org/content/early//ASN.2020 379688 Performed By: #### C BC #### [address] [place] [address] Glucose [Mass/Vol] 138 mg/dL High 74 - 99 [facility] Comment on above: Performed By: #### C BC #### [address] [place] [address] HCO3 (Bld) [Moles/Vol] 31 mmol/L Normal 21 - 32 [facility] Comment on above: Performed By: #### C BC #### [address] [address] Phosphate [Mass/Vol] 4.9 mg/dL Normal 2.5 - 4.9 [facility] Comment on above: Result Comment: The performance characteristics of phosphorus testing in heparinized plasma have been validated by the individual laboratory site where testing is performed. Testing on heparinized plasma is not approved by the FDA; however, such approval is not necessary. Performed By: #### C BC #### [address] [address] Potassium [Moles/Vol] 4.0 mmol/L Normal 3.5 - 5.3 [facility] Comment on above: Performed By: #### C BC #### [address] [address] Sodium [Moles/Vol] 143 mmol/L Normal 136 - 145 [facility] Comment on above: Performed By: #### C BC #### [address] [address] Urea nitrogen [Mass/Vol] 23 mg/dL Normal 6 - 23 [facility] Comment on above: Performed By: #### C BC #### [address] [address] TYPE + SCREENon 02-06-2022 ABO TYPE O Normal [facility] Comment on above: Performed By: #### T +S #### [address] [address] RH TYPE Positive Normal [facility] Comment on above: Performed By: #### T +S #### [address] [address] [facility] Surgical Pathology Depar tmenton 02-06-2022 [facility] Surgical Pathology Department Name YEFRI YANEZ Pathologist: CYNTHIA LOPEZ MD Date of Procedure: 02/06/2022 Date Received: 02/06/2022 Date Reported 02/19/2022 Submitting Physician: ARAVIND HERNANDEZ MD Location: [address] External # FINAL DIAGNOSIS A. KIDNEY, RIGHT, [...] glomerulosclerosis Vascular disease: Mild to moderate arteriosclerosis Table Lever Operator Blocks: Normal Block: A8 Tumor Block: A3 Electronically Signed Out By CYNTHIA LOPEZ MD/[facility] By the signature on this report, the individual or group listed as making the Final Interpretation/Diagnosis certifies that they have reviewed this case. Diagnostic interpretation performed at [facility] [address] [facility] [address] Clinical History: renal cell carcinoma Specimens Submitted [...] nodes are found. Photographs have been taken. Table Lever Operator sections are submitted in 8 cassettes. WXK/DJO Summary of Cassettes: Specimen Label Site A 1 ureter margin 2 vascular margins 3-4 mass in relation to lurdes-renal fat (A3 with tumor deposit in lurdes-renal fat) 5-6 mass in relation to lurdes-hilar fat 7 tumor with adjacent kidney parenchyma 8 normal kidney parenchyma djo/02/10/2022 [facility] Department of Pathology [address] [place] [address] Normal [facility] Comment on above: Performed By: #### U [facility] #### [facility] Surgical Pathology Department [address] [place] [address] [facility] CNPN Telephone (CARMOB) ----- YEFRI YANEZ ([id number]) 1965 M [facility] Date Time Provider Department 02/05/22 SAYRA TELLO During your visit today, we recorded the following information about you: Abbey Nash 02/05/2022 12:41 PM Signed Patient's Miya left a voicemail stating that she has questions about the patient's upcoming appointment with Dr. Tello. Please call her at [phone]. Florian Mello RN 02/09/2022 2:26 PM Signed [...] Fully Assessed Reason for Visit: Patient Question [9077] Prescriptions as of 02/17/2022 - torsemide (DEMADEX) [...] by this patient by: SPOUSE Safia Carr, [facility] Problem List As Of Date 02/05/2022 Noted [...] Encounter Status:Closed by FLORIAN MELLO on 02/17/22 [facility] CORONAVIRUS 2019, SCREEN ASY MPTOMATICon 02-04-2022 SARS-CoV-2 (COVID-19) RNA SANDOVAL+probe Ql (Unsp spec) Not detected Normal Not Detected [facility] Comment on above: Result Comment: . This assay is designed to detect the ORF1a/b and E genes of SARS-CoV-2 via nucleic acid amplification. A Not Detected result does not preclude 2019-nCoV infection since the adequacy of sample collection and/or low viral burden may result in presence of viral nucleic acids below the clinical sensitivity of this test method. Fact sheet for providers: https://www.fda.gov/media/618501/download Fact sheet for patients: https://www.fda.gov/media/487568/download This test has received FDA Emergency Use Authorization (EUA) and has been verified for use by [facility] ([facility]). This test is only authorized for the duration of time that circumstances exist to justify the authorization of the emergency use of in vitro diagnostic tests for the detection of SARS-CoV-2 virus and/or diagnosis of COVID-19 infection under section 564(b)(1) of the Act, 21 U.S.C. 360bbb-3(b)(1), unless the authorization is terminated or revoked sooner. [facility] is certified under CLIA-88 as qualified to perform high complexity testing. Testing is performed in the [facility] laboratories located at [address] [place] [address]. Performed By: #### C OVSC #### [facility] [id number] [place] [address] Lab Specimen Source Nasal, Nasopharyngeal Normal [facility] Comment on above: Performed By: #### C OVSC #### [facility] [address] [place] [address] Coronavirus 2019 RNA by PCR, Screening Asymptomticon 02-04-2022 Coronavirus 2019 RNA by PCR, Screening Asymptomtic Not detected Normal See Below [place] bassemdonta SJW 400 DO Work Phone: Comment on [...] this test method. Fact sheet for providers: https://www.fda.gov/media/749358/download Fact sheet for patients: https://www.fda.gov/media/274632/download This test has received FDA Emergency Use Authorization (EUA) and has been verified for use by [facility] ([facility]). This test is only authorized for the duration of time that circumstances exist to justify the authorization of the emergency use of in vitro diagnostic tests for the detection of SARS-CoV-2 virus and/or diagnosis of COVID-19 infection under section 564(b)(1) of the Act, 21 U.S.C. 360bbb-3(b)(1), unless the authorization is terminated or revoked sooner.[facility] is certified under CLIA-88 as qualified to perform high complexity testing. Testing is performed in the [facility] laboratories located at [address] [place] [address]. Covid 19 Resultson 2 SARS-CoV-2 (COVID-19) RNA [...] You may also be contacted by the [facility] to see if any of your [...] or Naproxen (Aleve) can also be used. Skcq-nyh-gokutow cough and cold medicines can be used according to the instructions on the package. Some cthr-eti-algcauz medicines also contain acetaminophen. Make sure you [...] water are not available, use alcohol-based hand aeronautical design engineer. Avoid touching your eyes, nose, and mouth [...] 24 felisa (more content not included)... Normal [facility] Chart Updateon 02-03-2022 Chart Update Chart Update [...] between urology, medical oncology, radiation oncology at [facility] was local therapy to metastatic sites and cytoreductive nephrectomy. 12/08/2021-echo with EF 35%, LV and RV enlargement and hypokinesis 12/26/2021-patient completed radiation to chest wall and L4 lesion Patient has remained on cabo Patient was scheduled for nephrectomy with Dr. Adriana Hodge, due to insurance issues patient could not be operated on at [facility], referred to [facility] for nephrectomy. 01/19/2022-patient scheduled for laparoscopic nephrectomy 02/0301/20/2022-patient presented to [place] ER with shortness of breath 01/27/2022-patient presented to PAT with persistence of subjective dyspnea, expiratory wheezing 01/29/2022-patient represented to [place] ED with chest tightness and shortness of [...] with radiation therapy. Plan previously developed at [facility] was 4 local treatment to masses [...] Feb 03 2022 8:52AM EST (Author) Normal [facility] Absolute lymphocyte countOrd ered By: Dr. Bass on 01-29-2022 Lymphocytes Auto (Unsp spec) [#/Vol] 0.78 10*3/uL 0.83-4.51 [facility] Basophil percentageOrdered B y: Dr. Bass on 01-29-2022 Basophils/100 WBC (Bld) 0.3 % 0-1 [facility] Chloride [Moles/Vol] 102 mmol/L 98-107 [facility] Eosinophils/100 WBC (Bld) 0.1 % 0-5 [facility] Glucose [Mass/Vol] 148 mg/dL 74-106 [facility] Comment on above: Fasting Glucose resu lt greater than or equal to 126 mg/dL suggests DIABETES MELLITUS per A.D.A. criteria. Neutrophils (Bld) [#/Vol] 8.6 10*3/uL 2.0-7.7 [facility] Neutrophils/100 WBC (Bld) 85.8 % 47-70 [facility] Potassium [Moles/Vol] 3.5 mmol/L 3.5-5.1 [facility] Comment on above: Slight Hemolysis, Re sult may be falsely increased. Sodium [Moles/Vol] 142 mmol/L 136-145 [facility] WBC (Bld) [#/Vol] 10.0 10*3/uL 4.4-11.0 [facility] Blood erythrocytes count (nu mber/volume)Ordered By: Dr. Bass on 01-29-2022 RBC (Bld) [#/Vol] 4.81 10*6/uL 4.6-6.2 [facility] Blood hemoglobin measurement (mass/volume)Ordered By: Dr. aBss on 01-29-2022 Hemoglobin (Bld) [Mass/Vol] 15.0 g/dL 13.0-16.5 [facility] Blood lymphocytes/100 leukoc ytesOrdered By: Dr. Bass on 01-29-2022 Lymphocytes/100 WBC (Bld) 7.8 % 19-41 [facility] Blood monocytes/100 leukocyt esOrdered By: Dr. Bass on 01-29-2022 Monocytes/100 WBC (Bld) 4.3 % 0-10 [facility] Blood platelet mean volumeOr dered By: Dr. Bass on 01-29-2022 Platelet mean volume (Bld) [Entitic vol] 10.9 fL 6.2-12.0 [facility] Determination of erythrocyte mean corpuscular volume (MCV)Ordered By: Dr. Bass on 01-29-2022 MCV (RBC) [Entitic vol] 94.2 fL 80-94 [facility] Hematocrit Auto (Bld) [Volum e fraction]Ordered By: Dr. Bass on 01-29-2022 Hematocrit (Bld) [Volume fraction] 45.3 % 40-54 [facility] INR in Blood by Coagulation assayOrdered By: Dr. Bass on 01-29-2022 INR Coag (Bld) [Relative time] 1.2 {INR} [facility] Influenza virus A and B and SARS-CoV-2 (COVID-19) Ag panel - Upper respiratory specimOrdered By: Dr. Bass on 01-29-2022 SARS-CoV-2 (COVID-19) RNA SANDOVAL+probe Ql (Resp) [facility] Laboratory - Chemistry and C hemistry - challengeOrdered By: Dr. Bass on 01-29-2022 CO2 [Moles/Vol] 36.0 mmol/L 21.0-32.0 [facility] Natriuretic peptide B (Bld) [Mass/Vol] 378.8 pg/mL 0-100 [facility] Urea nitrogen/Creatinine [Mass ratio] 17.4 mg/mg 10-20 [facility] Laboratory - CoagulationOrde red By: Dr. Bass on 01-29-2022 PT Coag (PPP) [Time] 15.3 s 11.7-14.9 [facility] Laboratory - Hematology and Cell countsOrdered By: Dr. Bass on 01-29-2022 Erythrocyte distribution width (RBC) [Entitic vol] 55.1 fL 35.1-43.9 [facility] Erythrocyte distribution width (RBC) [Ratio] 16.4 % 11.6-14.6 [facility] Immature granulocytes/100 WBC (Bld) 1.700 % 0.0-0.9 [facility] Comment on above: IG% - Immature Granu locytes (promyelocytes, myelocytes and metamyelocytes) > 1% indicates that a LEFT SHIFT is Present. MCH (RBC) [Entitic mass] 31.2 pg 27.0-32.0 [facility] Nucleated RBC/100 WBC (Bld) [Ratio] 1.2 % 0-5 [facility] MCHC Auto (RBC) [Mass/Vol]Or dered By: Dr. Bass on 01-29-2022 MCHC (RBC) [Mass/Vol] 33.1 g/dL 32-36 [facility] No Panel InformationOrdered By: Dr. Bass on 01-29-2022 Estimated Creatinine Clearance Calc 76.27 ml/min [facility] Estimated GFR (MDRD) Amer 89 mL/min >60 [facility] Comment on above: GFR Calc Estimated GFR (MDRD) Non-Af Amer 74 mL/min >60 [facility] Comment on above: Non- GFR Calc Troponin I High Sensitivity 69 pg/mL 3.0-78.0 [facility] Comment on above: Please Note: New [place] t Units and Gender Specific Reference Ranges. For more information see Policy Stat Procedure [place] High Sensitivity Troponin (TNIH) and attachments. Platelets bldOrdered By: Dr. Bass on 01-29-2022 Platelets (Bld) [#/Vol] 166 10*3/uL 150-450 [facility] Serum or plasma calcium cory urement (mass/volume)Ordered By: Dr. Bass on 01-29-2022 Calcium [Mass/Vol] 9.0 mg/dL 8.5-10.1 [facility] Serum or plasma creatinine m easurement (mass/volume)Ordered By: Dr. Bass on 01-29-2022 Creatinine [Mass/Vol] 1.09 mg/dL 0.70-1.30 [facility] Comment on above: The validity of the calculated GFR & GFRAA in patients over 70 years has not been determined. Clinical correlation is essential. Serum or plasma urea nitroge n measurement (mass/volume)Ordered By: Dr. Bass on 01-29-2022 Urea nitrogen [Mass/Vol] 19 mg/dL 7- [facility] Thin prep Papanicolaou smear with manual screeningOrdered By: Dr. Bass on 01-29-2022 Thin prep Papanicolaou smear with manual screening 4 - [facility] Cult, Urineon 01-27-2022 Bacteria identified Cx Nom (U) JX-Tqlfdfk-S [employer] SJW 400 DO Work Phone: Laboratory - Blood bankon ABO group Nom (Bld) O MP-Ur ology-W [employer] SJW 400 DO Work Phone: Blood group antibody screen Ql Negative CM-Wgubifv-S [employer] SJW 400 DO Work Phone: Rh immune globulin screen (Bld) [Interp] Positive -Urology -W [employer] SJW 400 DO Work Phone: TYPE + SCREENon 01-27-2022 ABO TYPE O Normal [facility] Comment on above: Performed By: #### C BC #### [address] [address] RH TYPE Positive Normal [facility] Comment on above: Performed By: #### C BC #### [address] [address] URINE CULTURE,BACTERIALon URINE CULTURE,BACTERIAL PATIENT: YEFRI BREEN LOCATION: [facility]#: [id number] : 63 AGE: SEX: M ORDERED BY: ARAVIND HERNANDEZ SOURCE: URINE COLLECTED: 01/27/22 11:26 ANTIBIOTICS AT [facility]AS[facility].: RECEIVED : 01/27/22 19:27 SITE: R E S U L T S URINE CULTURE,BACTERIAL FINAL 01/28/22 12:54 NO SIGNIFICANT GROWTH. Normal [facility] Comment on above: Performed By: #### C BC #### [facility] [address] [place] [address] CNPTOUTREACHon 01-23-2022 CNPTOUTREACH Normal [facility] Absolute lymphocyte countOrd ered By: Dr. Carvajal on 01-20-2022 Lymphocytes Auto (Unsp spec) [#/Vol] 1.04 10*3/uL 0.83-4.51 [facility] Basophil percentageOrdered B y: Dr. Carvajal on 01-20-2022 Basophils/100 WBC (Bld) 0.4 % 0-1 [facility] Chloride [Moles/Vol] 104 mmol/L 98-107 [facility] Eosinophils/100 WBC (Bld) 1.3 % 0-5 [facility] Glucose [Mass/Vol] 113 mg/dL 74-106 [facility] Comment on above: Fasting Glucose resu lt from 100 to 125 mg/dL suggests IMPAIRED HOMEOSTASIS per A.D.A. criteria. Neutrophils (Bld) [#/Vol] 3.0 10*3/uL 2.0-7.7 [facility] Neutrophils/100 WBC (Bld) 66.2 % 47-70 [facility] Potassium [Moles/Vol] 3.5 mmol/L 3.5-5.1 [facility] Comment on above: Moderate Hemolysis, Result may be falsely increased. Sodium [Moles/Vol] 142 mmol/L 136-145 [facility] WBC (Bld) [#/Vol] 4.5 10*3/uL 4.4-11.0 [facility] Blood erythrocytes count (nu mber/volume)Ordered By: Dr. Carvajal on 01-20-2022 RBC (Bld) [#/Vol] 5.09 10*6/uL 4.6-6.2 [facility] Blood hemoglobin measurement (mass/volume)Ordered By: Dr. Carvajal on 01-20-2022 Hemoglobin (Bld) [Mass/Vol] 15.6 g/dL 13.0-16.5 [facility] Blood lymphocytes/100 leukoc ytesOrdered By: Dr. Carvajal on 01-20-2022 Lymphocytes/100 WBC (Bld) 23.2 % 19-41 [facility] Blood monocytes/100 leukocyt esOrdered By: Dr. Carvajal on 01-20-2022 Monocytes/100 WBC (Bld) 8.5 % 0-10 [facility] Blood platelet mean volumeOr dered By: Dr. Carvajal on 01-20-2022 Platelet mean volume (Bld) [Entitic vol] 10.2 fL 6.2-12.0 [facility] Determination of erythrocyte mean corpuscular volume (MCV)Ordered By: Dr. Carvajal on 01-20-2022 MCV (RBC) [Entitic vol] 91.2 fL 80-94 [facility] EKGon 01-20-2022 Atrial Rate 127 BPM [facility] Calculated R Orchard 80 degrees [facility] Calculated T Orchard 77 degrees [facility] QRS Duration 102 ms [facility] QT Interval 366 ms [facility] QTC Calculation (Bazett) 459 ms [facility] Ventricular Rate 95 BPM [facility] Atrial fibrillation Abnormal ECG No previous ECGs available Confirmed by RAINER PRINGLE MD ([id number]) on 01/20/2022 8:35:54 AM [facility] NAME : MIREYA YANEZ PID : [id number] : 1965 Gender : Male Race : ORD : Procedure Date : Jan 19 2022 11:29:03 Edit Date : Jan 20 2022 08:35:56 Diagnosis: Atrial fibrillation Abnormal ECG No previous ECGs available Confirmed by RAINER PRINGLE MD ([id number]) on 01/20/2022 8:35:54 AM Test Reason : RT Location : 18 : CDL Overread By : RAINER PRINGLE MD Edited By : RAINER PRINGLE MD Referred By : KITTY VALDEZ Acquired by : MARCELINO CRAIN [facility] Hematocrit Auto (Bld) [Volum e fraction]Ordered By: Dr. Carvajal on 01-20-2022 Hematocrit (Bld) [Volume fraction] 46.4 % 40-54 [facility] INR in Blood by Coagulation assayOrdered By: Dr. Carvajal on 01-20-2022 INR Coag (Bld) [Relative time] 1.5 {INR} [facility] Influenza virus A and B and SARS-CoV-2 (COVID-19) Ag panel - Upper respiratory specimOrdered By: Dr. Carvajal on 01-20-2022 SARS-CoV-2 (COVID-19) RNA SANDOVAL+probe Ql (Resp) [facility] Laboratory - Chemistry and C hemistry - challengeOrdered By: Dr. Carvajal on 01-20-2022 CO2 [Moles/Vol] 30.0 mmol/L 21.0-32.0 [facility] Natriuretic peptide B (Bld) [Mass/Vol] 272.4 pg/mL 0-100 [facility] Urea nitrogen/Creatinine [Mass ratio] 12.7 mg/mg 10-20 [facility] Laboratory - CoagulationOrde red By: Dr. Carvajal on 01-20-2022 PT Coag (PPP) [Time] 17.4 s 11.7-14.9 [facility] Laboratory - Hematology and Cell countsOrdered By: Dr. Carvajal on 01-20-2022 Erythrocyte distribution width (RBC) [Entitic vol] 52.1 fL 35.1-43.9 [facility] Erythrocyte distribution width (RBC) [Ratio] 15.9 % 11.6-14.6 [facility] Immature granulocytes/100 WBC (Bld) 0.400 % 0.0-0.9 [facility] Comment on above: IG% - Immature Granu locytes (promyelocytes, myelocytes and metamyelocytes) > 1% indicates that a LEFT SHIFT is Present. MCH (RBC) [Entitic mass] 30.6 pg 27.0-32.0 [facility] Nucleated RBC/100 WBC (Bld) [Ratio] 0 % 0-5 [facility] MCHC Auto (RBC) [Mass/Vol]Or dered By: Dr. Carvajal on 01-20-2022 MCHC (RBC) [Mass/Vol] 33.6 g/dL 32-36 [facility] No Panel InformationOrdered By: Dr. Carvajal on 01-20-2022 Estimated Creatinine Clearance Calc 75.58 ml/min [facility] Estimated GFR (MDRD) Amer 88 mL/min >60 [facility] Comment on above: GFR Calc Estimated GFR (MDRD) Non-Af Amer 73 mL/min >60 [facility] Comment on above: Non- GFR Calc Troponin I High Sensitivity 58 pg/mL 3.0-78.0 [facility] Comment on above: Please Note: New [place] t Units and Gender Specific Reference Ranges. For more information see Policy Stat Procedure [place] High Sensitivity Troponin (TNIH) and attachments. Platelets bldOrdered By: Dr. Carvajal on 01-20-2022 Platelets (Bld) [#/Vol] 180 10*3/uL 150-450 [facility] Serum or plasma calcium cory urement (mass/volume)Ordered By: Dr. Carvajal on 01-20-2022 Calcium [Mass/Vol] 8.8 mg/dL 8.5-10.1 [facility] Serum or plasma creatinine m easurement (mass/volume)Ordered By: Dr. Carvajal on 01-20-2022 Creatinine [Mass/Vol] 1.10 mg/dL 0.70-1.30 [facility] Comment on above: The validity of the calculated GFR & GFRAA in patients over 70 years has not been determined. Clinical correlation is essential. Serum or plasma urea nitroge n measurement (mass/volume)Ordered By: Dr. Carvajal on 01-20-2022 Urea nitrogen [Mass/Vol] 14 mg/dL 7-18 [facility] Thin prep Papanicolaou smear with manual screeningOrdered By: Dr. Carvajal on 01-20-2022 Thin prep Papanicolaou smear with manual screening 8 5-15 [facility] CNCOon 01-19-2022 CNCO Letter Text Normal [facility] EKGon 01-19-2022 Electrocardiogram Ventricular Rate : 9 5 BPM Atrial Rate : 127 BPM QRS Duration : 102 ms Q-T Interval : 366 ms QTC Calculation(Bazett) : 459 ms Calculated R Orchard : 80 degrees Calculated T Orchard : 77 degrees Atrial fibrillation Abnormal ECG No previous ECGs available Confirmed by RAINER PRINGLE MD ([id number]) on 01/20/2022 8:35:54 AM NAME : YEFRI YANEZ PID : [id number] : 1965 Gender : Male Race : ORD : Procedure Date : Jan 19 2022 11:29:03 Edit Date : Jan 20 2022 08:35:56 Diagnosis: Atrial fibrillation Abnormal ECG No previous ECGs available Confirmed by RAINER PRINGLE MD ([id number]) on 01/20/2022 8:35:54 AM Test Reason : RT Location : 18 : CDL Overread By : RAINER PRINGLE MD Edited By : RAINER PRINGLE MD Referred By : KITTY VALDEZ Acquired by : MARCELINO CRAIN [facility] XR CHEST 2V FRONTAL/LATon XR CHEST 2V [...] Right chest wall mass is grossly stable. Route Delivery Manager: DANITZA Transcribe Date/Time: Jan 19 2022 11:14A Dictated by : LUMA SHANKS MD This examination was interpreted and the report reviewed and electronically signed by: LUMA SHANKS MD on Jan 19 2022 11:15AM EST [id number] [facility] 12-30-2021 CNPN [facility] 12-28-[address] 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 Patient's insurance changed was seen at [facility] but now that location is out of network. Patient was told by insurance he could be seen at this location. Patient's records are in epic. Adrienne Beach 12/25/2021 2:30 PM Signed I alexis and CORIN for PT offering him an [...] by this patient by: SPOUSE Safia Carr, [facility] Problem List As Of Date 12/25/2021 Noted [...] Encounter Status:Closed by ADRIENNE BEACH on 12/25/21 [facility] Absolute lymphocyte counton 12-09-2021 Lymphocytes Auto (Unsp spec) [#/Vol] 1.42 10*3/uL 0.83-4.51 [facility] Work Phone: Basophil percentageon 2021 Basophil percentage 3.9 mg/dL 2.5-4.9 [facility] Work Phone: Basophils/100 WBC (Bld) 0.5 % 0-1 [facility] Work Phone: Chloride [Moles/Vol] 109 mmol/L 98-107 [facility] Work Phone: Eosinophils/100 WBC (Bld) 1.5 % 0-5 [facility] Work Phone: Glucose [Mass/Vol] 121 mg/dL 74-106 [facility] Work Phone: Comment on above: Fasting Glucose resu lt from 100 to 125 mg/dL suggests IMPAIRED HOMEOSTASIS per A.D.A. criteria. Neutrophils (Bld) [#/Vol] 4.0 10*3/uL 2.0-7.7 [facility] Work Phone: Neutrophils/100 WBC (Bld) 67.8 % 47-70 [facility] Work Phone: Potassium [Moles/Vol] 3.8 mmol/L 3.5-5.1 [facility] Work Phone: Sodium [Moles/Vol] 142 mmol/L 136-145 [facility] Work Phone: WBC (Bld) [#/Vol] 5.9 10*3/uL 4.4-11.0 [facility] Work Phone: Blood erythrocytes count (nu mber/volume)on 12-09-2021 RBC (Bld) [#/Vol] 5.22 10*6/uL 4.6-6.2 [facility] Work Phone: Blood hemoglobin measurement (mass/volume)on 12-09-2021 Hemoglobin (Bld) [Mass/Vol] 16.0 g/dL 13.0-16.5 [facility] Work Phone: Blood lymphocytes/100 leukoc yteson 12-09-2021 Lymphocytes/100 WBC (Bld) 24.1 % 19-41 [facility] Work Phone: Blood monocytes/100 leukocyt eson 12-09-2021 Monocytes/100 WBC (Bld) 5.8 % 0-10 [facility] Work Phone: Blood platelet mean volumeon 12-09-2021 Platelet mean volume (Bld) [Entitic vol] 11.1 fL 6.2-12.0 [facility] Work Phone: CNOVon 12-09-2021 CNOV Office Visit (RDMERC ) ----- YEFRI YANEZ ([id number]) 1965 M [facility] Date Time Provider Department 12/09/21 10:00 AM ALFREDO XAVIER [facility] During your visit today, we recorded the [...] He was evaluated in the ER at [facility]. As part of his work-up a [...] acute dist (more content not included)... Normal [facility] Determination of erythrocyte mean corpuscular volume (MCV)on 12-09-2021 MCV (RBC) [Entitic vol] 90.6 fL 80-94 [facility] Work Phone: Hematocrit Auto (Bld) [Volum e fraction]on 12-09-2021 Hematocrit (Bld) [Volume fraction] 47.3 % 40-54 [facility] Work Phone: INR in Blood by Coagulation assayon 12-09-2021 INR Coag (Bld) [Relative time] 2.4 {INR} [facility] Work Phone: Laboratory - Chemistry and C hemistry - challengeon 12-09-2021 CO2 [Moles/Vol] 26.0 mmol/L 21.0-32.0 [facility] Work Phone: [phone] Magnesium [Mass/Vol] 1.9 mg/dL 1.6-2.6 [facility] Work Phone: [phone] Urea nitrogen/Creatinine [Mass ratio] 15.0 mg/mg 10-20 [facility] Work Phone: [phone] Laboratory - Coagulationon 1 PT Coag (PPP) [Time] 25.6 s 11.7-14.9 [facility] Work Phone: [phone] Laboratory - Hematology and Cell countson 12-09-2021 Erythrocyte distribution width (RBC) [Entitic vol] 54.5 fL 35.1-43.9 [facility] Work Phone: [phone] Erythrocyte distribution width (RBC) [Ratio] 16.5 % 11.6-14.6 [facility] Work Phone: [phone] Immature granulocytes/100 WBC (Bld) 0.300 % 0.0-0.9 [facility] Work Phone: [phone] Comment on above: IG% - Immature Granu locytes (promyelocytes, myelocytes and metamyelocytes) > 1% indicates that a LEFT SHIFT is Present. MCH (RBC) [Entitic mass] 30.7 pg 27.0-32.0 [facility] Work Phone: [phone] Nucleated RBC/100 WBC (Bld) [Ratio] 0 % 0-5 [facility] Work Phone: [phone] MCHC Auto (RBC) [Mass/Vol]on 12-09-2021 MCHC (RBC) [Mass/Vol] 33.8 g/dL 32-36 [facility] Work Phone: [phone] No Panel Informationon 12-09 Estimated Creatinine Clearance Calc 74.47 ml/min [facility] Work Phone: [phone] Estimated GFR (MDRD) Amer 86 mL/min >60 [facility] Work Phone: [phone] Comment on above: GFR Calc Estimated GFR (MDRD) Non-Af Amer 71 mL/min >60 [facility] Work Phone: Comment on above: Non- GFR Calc Platelets bldon 12-09-2021 Platelets (Bld) [#/Vol] 243 10*3/uL 150-450 [facility] Work Phone: Serum or plasma calcium cory urement (mass/volume)on 12-09-2021 Calcium [Mass/Vol] 9.0 mg/dL 8.5-10.1 [facility] Work Phone: Serum or plasma creatinine m easurement (mass/volume)on 12-09-2021 Creatinine [Mass/Vol] 1.13 mg/dL 0.70-1.30 [facility] Work Phone: Comment on above: The validity of the calculated GFR & GFRAA in patients over 70 years has not been determined. Clinical correlation is essential. 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 Authentication Interface Message Text Patient unable to contact No voicemail to return call Invalid Number Letter sent CALI [employer] [address] [place] [address] [email or web address] Normal [facility] Thin prep Papanicolaou smear with manual screeningon 12-09-2021 Thin prep Papanicolaou smear with manual screening 7 5-15 [facility] Work Phone: Absolute lymphocyte counton 12-07-2021 Lymphocytes Auto (Unsp spec) [#/Vol] 1.42 10*3/uL 0.83-4.51 [facility] Work Phone: Basophil percentageon 2021 Basophils/100 WBC (Bld) 0.5 % 0-1 [facility] Work Phone: Chloride [Moles/Vol] 108 mmol/L 98-107 [facility] Work Phone: Eosinophils/100 WBC (Bld) 0.7 % 0-5 [facility] Work Phone: Glucose [Mass/Vol] 135 mg/dL 74-106 [facility] Work Phone: Comment on above: Fasting Glucose resu lt greater than or equal to 126 mg/dL suggests DIABETES MELLITUS per A.D.A. criteria. Neutrophils (Bld) [#/Vol] 4.3 10*3/uL 2.0-7.7 [facility] Work Phone: Neutrophils/100 WBC (Bld) 70.8 % 47-70 [facility] Work Phone: Potassium [Moles/Vol] 3.5 mmol/L 3.5-5.1 [facility] Work Phone: Sodium [Moles/Vol] 142 mmol/L 136-145 [facility] Work Phone: WBC (Bld) [#/Vol] 6.1 10*3/uL 4.4-11.0 [facility] Work Phone: Blood erythrocytes count (nu mber/volume)on 12-07-2021 RBC (Bld) [#/Vol] 5.15 10*6/uL 4.6-6.2 [facility] Work Phone: Blood hemoglobin measurement (mass/volume)on 12-07-2021 Hemoglobin (Bld) [Mass/Vol] 16.0 g/dL 13.0-16.5 [facility] Work Phone: Blood lymphocytes/100 leukoc yteson 12-07-2021 Lymphocytes/100 WBC (Bld) 23.4 % 19-41 [facility] Work Phone: Blood monocytes/100 leukocyt eson 12-07-2021 Monocytes/100 WBC (Bld) 4.3 % 0-10 [facility] Work Phone: Blood platelet mean volumeon 12-07-2021 Platelet mean volume (Bld) [Entitic vol] 11.0 fL 6.2-12.0 [facility] Work Phone: [phone] Determination of erythrocyte mean corpuscular volume (MCV)on 12-07-2021 MCV (RBC) [Entitic vol] 90.5 fL 80-94 [facility] Work Phone: [phone] Hematocrit Auto (Bld) [Volum e fraction]on 12-07-2021 Hematocrit (Bld) [Volume fraction] 46.6 % 40-54 [facility] Work Phone: [phone] INR in Blood by Coagulation assayon 12-07-2021 INR Coag (Bld) [Relative time] 1.7 {INR} [facility] Work Phone: [phone] Laboratory - Chemistry and C hemistry - challengeon 12-07-2021 CO2 [Moles/Vol] 25.0 mmol/L 21.0-32.0 [facility] Work Phone: [phone] Natriuretic peptide B (Bld) [Mass/Vol] 686.4 pg/mL 0-100 [facility] Work Phone: [phone] Urea nitrogen/Creatinine [Mass ratio] 15.7 mg/mg 10-20 [facility] Work Phone: [phone] Laboratory - Coagulationon 1 PT Coag (PPP) [Time] 19.3 s 11.7-14.9 [facility] Work Phone: [phone] Laboratory - Hematology and Cell countson 12-07-2021 Erythrocyte distribution width (RBC) [Entitic vol] 54.9 fL 35.1-43.9 [facility] Work Phone: [phone] Erythrocyte distribution width (RBC) [Ratio] 16.5 % 11.6-14.6 [facility] Work Phone: [phone] Immature granulocytes/100 WBC (Bld) 0.300 % 0.0-0.9 [facility] Work Phone: [phone] Comment on above: IG% - Immature Granu locytes (promyelocytes, myelocytes and metamyelocytes) > 1% indicates that a LEFT SHIFT is Present. MCH (RBC) [Entitic mass] 31.1 pg 27.0-32.0 [facility] Work Phone: Nucleated RBC/100 WBC (Bld) [Ratio] 0 % 0-5 [facility] Work Phone: MCHC Auto (RBC) [Mass/Vol]on 12-07-2021 MCHC (RBC) [Mass/Vol] 34.3 g/dL 32-36 [facility] Work Phone: No Panel Informationon 12-07 Troponin I High Sensitivity 46 pg/mL 3.0-78.0 [facility] Work Phone: Comment on above: Please Note: New [place] t Units and Gender Specific Reference Ranges. For more information see Policy Stat Procedure [place] High Sensitivity Troponin (TNIH) and attachments. Estimated Creatinine Clearance Calc 66.26 ml/min [facility] Work Phone: Estimated GFR (MDRD) Amer 75 mL/min >60 [facility] Work Phone: Comment on above: GFR Calc Estimated GFR (MDRD) Non-Af Amer 62 mL/min >60 [facility] Work Phone: Comment on above: Non- GFR Calc Troponin I High Sensitivity 45 pg/mL 3.0-78.0 [facility] Work Phone: Comment on above: Please Note: New [place] t Units and Gender Specific Reference Ranges. For more information see Policy Stat Procedure [place] High Sensitivity Troponin (TNIH) and attachments. Platelets bldon 12-07-2021 Platelets (Bld) [#/Vol] 231 10*3/uL 150-450 [facility] Work Phone: Serum or plasma calcium cory urement (mass/volume)on 12-07-2021 Calcium [Mass/Vol] 9.6 mg/dL 8.5-10.1 [facility] Work Phone: Serum or plasma creatinine m easurement (mass/volume)on 12-07-2021 Creatinine [Mass/Vol] 1.27 mg/dL 0.70-1.30 [facility] Work Phone: Comment on above: The validity of the calculated GFR & GFRAA in patients over 70 years has not been determined. Clinical correlation is essential. Serum or plasma urea nitroge n measurement (mass/volume)on 12-07-2021 Urea nitrogen [Mass/Vol] 20 mg/dL 7-18 [facility] Work Phone: Thin prep Papanicolaou smear with manual screeningon 12-07-2021 Thin prep Papanicolaou smear with manual screening 9 -15 [facility] Work Phone: CNPNon 12-03-2021 CNPN Normal [facility] CNPNon 11-29-2021 CNPN [facility] 11-24-2021 [facility] Telephone ([facility]) ----- YEFRI YANEZ ([id number]) 1965 [facility] Date Time Provider Department 11/24/21 AMERICA SCHWARTZ [facility] During your visit today, we recorded the [...] verbalized understanding. America Schwartz, RN, BSN, OCN Prescriptions as of 11/25/2021 [...] by this patient by: SPOUSE Safia Carr, [facility] Problem List As Of Date 11/24/2021 Noted [...] Encounter Status:Closed by AMERICA SCHWARTZ on 11/25/21 [facility] CNPNon 11-23-2021 CNPN Normal [facility] CT ABD/PEL W IVCONon 022 CT ABD/PEL W IVCON Normal [facility] CT CHEST W IVCONon 2 CT CHEST W IVCON Normal [facility] No Panel Informationon 11-20 [facility] CNOVSPon 11-19-2021 CNOVSP Visit (SP) Office ([facility]) ----- YEFRI YANEZ ([id number]) 1965 M [facility] Date Time Provider Department 11/19/21 9:00 AM HAYLEE WILBURN [facility] During your visit today, we recorded the following information about you: Pulse Respiration Blood pressure Weight 76/minute 18/minute 130/82 118.8 kg Height 1.778 m [place], [place] 11/19/2021 9:58 AM Signed This note [...] Haylee Wilburn MD 11/19/2021 9:58 AM Signed [facility] Progress Note SERVICE DATE: November 19, [...] started treatment with cabo + nivo on [facility] 1820 Trial on 08/08/2021 at [facility]. He has baseline HTN and developed worsening HTN after starting treatment. His cabo was held on 08/18/2021, resumed on 09/11/2021. The Nivo was held on 09/11/21 due to pneumonitis, and prednisone 60 mg daily was started and tapered off within about one month. Due to insurance change, he was taken off the trial and referred to [facility] to resume the treatment. He was [...] Rhythm: No (more content not included)... Normal [facility] CNPNon 11-06-2021 CNPN Telephone ([facility]) ----- YEFRI YANEZ ([id number]) 1965 M [facility] Date Time Provider Department 11/06/21 HAYLEE WILBURN [facility] During your visit today, we recorded the following information about you: Tania Parekh RN 11/06/2021 9:32 AM Signed Spoke with new accounts banking representative from [facility], she is asking that we reach [...] by this patient by: SPOUSE Safia Carr [facility] Problem List As Of Date 11/06/2021 Noted [...] Encounter Status:Closed by TANIA PAREKH on 11/06/21 [facility] CNPN Telephone ([facility]) ----- YEFRI YANEZ ([id number]) 1965 M [facility] Date Time Provider Department 11/06/21 AMERICA SCHWARTZ [facility] During your visit today, we recorded the following information about you: Allergies As of Date: 11/06/2021 Noted Allergy Reaction LISINOPRIL 09/01/2012 18 - Angioedema SHELLFISH CONTAINING PRODUCTS 06/04/2019 10 - Anaphylaxis 4 - Hives ASPIRIN 07/21/2004 5 - Intolerance MUSHROOM 08/05/2021 4 - Hives PENICILLINS 11/01/2003 5 - Intolerance Date Reviewed: 10/27/2021 Reviewed by: Lisa Christensen PA-C - Fully Assessed 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] Cmt: Calling to get an update on [...] by this patient by: SPOUSE Safia Carr, [facility] Problem List As Of Date 11/06/2021 Noted [...] Encounter Status:Closed by AMERICA SCHWARTZ on 11/06/21 [facility]21 CNPN Telephone ([facility]) ----- YEFRI YANEZ ([id number]) 1965 [facility] Date Time Provider Department 11/03/21 HAYLEE WILBURN [facility] During your visit today, we recorded the [...] by this patient by: SPOUSE Safia Carr [facility] Problem List As Of Date 11/03/2021 Noted [...] Encounter Status:Closed by AMERICA SCHWARTZ on 11/03/21 [facility] CNPN Telephone ([facility]) ----- YEFRI YANEZ ([id number]) 1965 M [facility] Date Time Provider Department 11/03/21 HAYLEE WILBURN [facility] During your visit today, we recorded the [...] by this patient by: SPOUSE Safia Carr, [facility] Problem List As Of Date 11/03/2021 Noted [...] Encounter Status:Closed by AMERICA SCHWARTZ on 11/03/21 [facility] CBC W Auto Differential pane l (Bld)on 10-27-2021 Basophils (Bld) [#/Vol] 0.03 10*3/uL Normal <0.11 [facility] Comment on above: Order Comment: Speci men Type: BLOOD SPECIMENOrdering Facility: [facility] Address: [address] [place] [address] Performed By: #### 5 7021-8 ####[facility] LABCLIA [id number] [place] [address] [place] Basophils/100 WBC (Bld) 0.6 % Normal C [facility] Comment on above: Order Comment: Speci men Type: BLOOD SPECIMENOrdering Facility: [facility] Address: [address] [place] [address] Performed By: #### 5 7021-8 ####[facility] LABCLIA [id number] [place] [address] [place] Differential cell count method Nom (Bld) Auto Normal [facility] Comment on above: Order Comment: Speci men Type: BLOOD SPECIMENOrdering Facility: [facility] Address: [address] [place], [place] [address] Performed By: #### 5 7021-8 ####[facility] LABCLIA [id number] [address] [place] Eosinophils (Bld) [#/Vol] 0.03 10*3/uL Normal <0.46 [facility] Comment on above: Order Comment: Speci men Type: BLOOD SPECIMENOrdering Facility: [facility] Address: [address] [place], [place] [address] Performed By: #### 5 7021-8 ####[facility] LABCLIA [id number] [address] [place] Eosinophils/100 WBC (Bld) 0.6 % Normal [facility] Comment on above: Order Comment: Speci men Type: BLOOD SPECIMENOrdering Facility: [facility] Address: [address] [place], [place] [address] Performed By: #### 5 7021-8 ####[facility] LABCLIA [id number] [place] [address] [place] Erythrocyte distribution width (RBC) [Ratio] 16.6 % High 11.5-15.0 [facility] Comment on above: Order Comment: Speci men Type: BLOOD SPECIMENOrdering Facility: [facility] Address: [address] [place], [place] [address] Performed By: #### 5 7021-8 ####[facility] LABCLIA [id number] [place] [address] [place] Hematocrit (Bld) [Volume fraction] 48.6 % Normal 39.0-51.0 [facility] Comment on above: Order Comment: Speci men Type: BLOOD SPECIMENOrdering Facility: [facility] Address: [address] [place], [place] [address] Performed By: #### 5 7021-8 ####[facility] LABCLIA [id number] [place] [address] [place] Hemoglobin (Bld) [Mass/Vol] 16.3 g/dL Normal 13.0-17.0 [facility] Comment on above: Order Comment: Speci men Type: BLOOD SPECIMENOrdering Facility: [facility] Address: [address] [place] [address] Performed By: #### 5 7021-8 ####[facility] LABCLIA [id number] [place] [address] [place] IMMATURE GRAN % 0.8 % Normal [facility] Comment on above: Order Comment: Speci men Type: BLOOD SPECIMENOrdering Facility: [facility] Address: [address] [place] [address] Performed By: #### 5 7021-8 ####[facility] LABIA [id number] [place] [address] [place] IMMATURE GRAN ABS 0.04 k/uL Normal <0.10 [facility] Comment on above: Order Comment: Speci men Type: BLOOD SPECIMENOrdering Facility: [facility] Address: [address] [place] [address] Performed By: #### 5 7021-8 ####[facility] LABIA [id number] [place] [address] [place] Lymphocytes (Bld) [#/Vol] 1.62 10*3/uL Normal 1.00-4.00 [facility] Comment on above: Order Comment: Speci men Type: BLOOD SPECIMENOrdering Facility: [facility] Address: [address] [place] [address] Performed By: #### 5 7021-8 ####[facility] LABIA [id number] [place] [address] [place] Lymphocytes/100 WBC (Bld) 32.0 % Normal [facility] Comment on above: Order Comment: Speci men Type: BLOOD SPECIMENOrdering Facility: [facility] Address: [address] [place], [place] [address] Performed By: #### 5 7021-8 ####[facility] [id number] [address] [place] [facility] MCH (RBC) [Entitic mass] 30.0 pg Normal 26.0-34.0 [facility] Comment on above: Order Comment: Speci men Type: BLOOD SPECIMENOrdering Facility: [facility] Address: [address] [place], [place] [address] Performed By: #### 5 7021-8 ####[facility] [id number] [address] [place] MCHC (RBC) [Mass/Vol] 33.5 g/dL Normal 30.5-36.0 [facility] Comment on above: Order Comment: Speci men Type: BLOOD SPECIMENOrdering Facility: [facility] Address: [address] [place], [place] [address] Performed By: #### 5 7021-8 ####[facility] [id number] [address] MCV (RBC) [Entitic vol] 89.3 fL Normal 80.0-100.0 C [facility] Comment on above: Order Comment: Speci men Type: BLOOD SPECIMENOrdering Facility: [facility] Address: [address] [place], [place] [address] Performed By: #### 5 7021-8 ####[facility] [id number] [place] [address] [place] Monocytes (Bld) [#/Vol] 0.44 10*3/uL Normal <0.87 [facility] Comment on above: Order Comment: Speci men Type: BLOOD SPECIMENOrdering Facility: [facility] Address: [address] [place], [place] [address] Performed By: #### 5 7021-8 ####[facility] LABCLIA [id number] [place] [address] [place] Monocytes/100 WBC (Bld) 8.7 % Normal [facility] Comment on above: Order Comment: Speci men Type: BLOOD SPECIMENOrdering Facility: [facility] Address: [address] [place], [place] [address] Performed By: #### 5 7021-8 ####[facility] LABCLIA [id number] [place] [address] [place] Neutrophils (Bld) [#/Vol] 2.90 10*3/uL Normal 1.45-7.50 [facility] Comment on above: Order Comment: Speci men Type: BLOOD SPECIMENOrdering Facility: [facility] Address: [address] [place], [place] [address] Performed By: #### 5 7021-8 ####[facility] LABCLIA [id number] [place] [address] [place] Neutrophils/100 WBC (Bld) 57.3 % Normal [facility] Comment on above: Order Comment: Speci men Type: BLOOD SPECIMENOrdering Facility: [facility] Address: [address] [place], [place] [address] Performed By: #### 5 7021-8 ####[facility] LABCLIA [id number] [place] [address] [place] Nucleated RBC (Bld) [#/Vol] 10*3/uL Normal <0.01 [facility] Comment on above: Order Comment: Speci men Type: BLOOD SPECIMENOrdering Facility: [facility] Address: [address] [place], [place] [address] Performed By: #### 5 7021-8 ####[facility] LABCLIA [id number] [place] [address] [place] Nucleated RBC/100 WBC (Bld) [Ratio] 0.0 /100 WBC Normal [facility] Comment on above: Order Comment: Speci men Type: BLOOD SPECIMENOrdering Facility: [facility] Address: [address] [place], [place] [address] Performed By: #### 5 7021-8 ####[facility] LABCLIA [id number] [place] [address] [place] Platelet mean volume (Bld) [Entitic vol] 10.6 fL Normal 9.0-12.7 [facility] Comment on above: Order Comment: Speci men Type: BLOOD SPECIMENOrdering Facility: [facility] Address: [address] [place], [place] [address] Performed By: #### 5 7021-8 ####[facility] LABCLIA [id number] [place] [address] [place] Platelets (Bld) [#/Vol] 237 10*3/uL Normal 150-400 [facility] Comment on above: Order Comment: Speci men Type: BLOOD SPECIMENOrdering Facility: [facility] Address: [address] [place], [place] [address] Performed By: #### 5 7021-8 ####[facility] LABCLIA [id number] [place] [address] [place] RBC (Bld) [#/Vol] 5.44 10*6/uL Normal 4.20-6.00 [facility] Comment on above: Order Comment: Speci men Type: BLOOD SPECIMENOrdering Facility: [facility] Address: [address] [place] [address] Performed By: #### 5 7021-8 ####[facility] LABCLIA [id number] [place] [address] [place] WBC (Bld) [#/Vol] 5.06 10*3/uL Normal 3.70-11.00 [facility] Comment on above: Order Comment: Speci men Type: BLOOD SPECIMENOrdering Facility: [facility] Address: [address] [place], [place] [address] Performed By: #### 5 7021-8 ####[facility] LABCLIA [id number] [place] [address] [place] CNPNon 10-27-2021 CNPN Normal [facility] CONFIRM BLOOD TYPEon 022 ABO O Normal [facility] Comment on above: Order Comment: Speci men Type: BLOOD SPECIMENOrdering Facility: [facility] Address: [address] [place], [place] [address] Performed By: #### C ONABO ####CC [facility] BLOOD BANKIA [id number] [place] [address] [place] Rh Nom (Bld) Positive Normal [facility] Comment on above: Order Comment: Speci men Type: BLOOD SPECIMENOrdering Facility: [facility] Address: [address] [place], [place] [address] Performed By: #### C ONABO ####CC [facility] BLOOD BANKCLIA [id number] [place] [address] [place] Comprehensive metabolic 2000 panelon 10-27-2021 Albumin [Mass/Vol] 3.8 g/dL Low 3.9-4.9 [facility] Comment on above: Order Comment: Speci men Type: BLOOD SPECIMENOrdering Facility: [facility] Address: [address] [place] [address] Performed By: #### 2 4323-8, 3016-3 ####[facility] LABCLIA [id number] [place] [address] [place] ALP [Catalytic activity/Vol] 54 U/L Normal 38-113 [facility] Comment on above: Order Comment: Speci men Type: BLOOD SPECIMENOrdering Facility: [facility] Address: [address] [place], [place] [address] Performed By: #### 2 4323-8, 3016-3 ####[facility] LABCLIA [id number] [place] [address] [place] ALT [Catalytic activity/Vol] 20 U/L Normal 10-54 [facility] Comment on above: Order Comment: Speci men Type: BLOOD SPECIMENOrdering Facility: [facility] Address: [address] [place] [address] Performed By: #### 2 4323-8, 3016-3 ####[facility] LABCLIA [id number] [place] [address] [place] Anion gap [Moles/Vol] 11 mmol/L Normal 9-18 [facility] Comment on above: Order Comment: Speci men Type: BLOOD SPECIMENOrdering Facility: [facility] Address: [address] [place], [place] [address] Performed By: #### 2 432-8, 6-3 ####[facility] LABCLIA [id number] [place] [address] [place] AST [Catalytic activity/Vol] 22 U/L Normal 14-40 [facility] Comment on above: Order Comment: Speci men Type: BLOOD SPECIMENOrdering Facility: [facility] Address: [address] [place], [place] [address] Performed By: #### 2 4323-8, 6-3 ####[facility] LABCLIA [id number] [place] [address] [place] Bilirubin [Mass/Vol] 0.5 mg/dL Normal 0.2-1.3 [facility] Comment on above: Order Comment: Speci men Type: BLOOD SPECIMENOrdering Facility: [facility] Address: [address] [place], [place] [address] Performed By: #### 2 4323-8, 3016-3 ####[facility] LABCLIA [id number] [place] [address] [place] Calcium [Mass/Vol] 9.6 mg/dL Normal 8.5-10.2 [facility] Comment on above: Order Comment: Speci men Type: BLOOD SPECIMENOrdering Facility: [facility] Address: [address] [place], [place] [address] Performed By: #### 2 4323-8, 3016-3 ####[facility] LABCLIA [id number] [place] [address] [place] Chloride [Moles/Vol] 101 mmol/L Normal 97-105 [facility] Comment on above: Order Comment: Speci men Type: BLOOD SPECIMENOrdering Facility: [facility] Address: [address] [place], [place] [address] Performed By: #### 2 4323-8, 6-3 ####[facility] LABCLIA [id number] [place] [address] [place] CO2 [Moles/Vol] 28 mmol/L Normal 22-30 [facility] Comment on above: Order Comment: Speci men Type: BLOOD SPECIMENOrdering Facility: [facility] Address: [address] [place], [place] [address] Performed By: #### 2 4323-8, 3016-3 ####[facility] LABCLIA [id number] [place] [address] [place] Creatinine [Mass/Vol] 1.07 mg/dL Normal 0.73-1.22 [facility] Comment on above: Order Comment: Speci men Type: BLOOD SPECIMENOrdering Facility: [facility] Address: [address] [place] [address] Performed By: #### 2 4323-8, 3016-3 ####[facility] LABCLIA [id number] [place] [id number] [place] ESTIMATED GLOMERULAR FILTRATION RATE 81 mL/min/1.73m??? Normal >=60 [facility] Comment on above: Order Comment: Aaliyah gibson Type: BLOOD SPECIMENOrdering Facility: [facility] Address: [address] [place] [address] Result Comment: Laurita mated Glomerular Filtration Rate [...] GFR. Performed By: #### 2 4323-8, 3016-3 ####[facility] LABIA [id number] [place] [address] [place] Glucose [Mass/Vol] 111 mg/dL High 74-99 [facility] Comment on above: Order Comment: Aaliyah gibson Type: BLOOD SPECIMENOrdering Facility: [facility] Address: [address] [place] [address] Result Comment: The [place] Diabetes Association (ADA) provides guidance for cutoff [...] Standards of Medical Care in Diabetes 2016, [place] [employer]. Diabetes Care. 2016.39(Suppl 1). Performed By: #### 2 4323-8, 3016-3 ####[facility] LABIA [id number] [place] [address] [place] Potassium [Moles/Vol] 3.5 mmol/L Low 3.7-5.1 [facility] Comment on above: Order Comment: Speci men Type: BLOOD SPECIMENOrdering Facility: [facility] Address: [address] [place], [place] [address] Performed By: #### 2 4323-8, 3016-3 ####[facility] LABCLIA [id number] [place] [address] [place] Protein [Mass/Vol] 6.8 g/dL Normal 6.3-8.0 [facility] Comment on above: Order Comment: Speci men Type: BLOOD SPECIMENOrdering Facility: [facility] Address: [address] [place], [place] [address] Performed By: #### 2 4323-8, 6-3 ####[facility] LABIA [id number] [place] [address] [place] Sodium [Moles/Vol] 140 mmol/L Normal 136-144 [facility] Comment on above: Order Comment: Speci men Type: BLOOD SPECIMENOrdering Facility: [facility] Address: [address] [place], [place] [address] Performed By: #### 2 4323-8, 3016-3 ####[facility] LABIA [id number] [place] [address] [place] Urea nitrogen [Mass/Vol] 9 mg/dL Normal 9-24 [facility] Comment on above: Order Comment: Speci men Type: BLOOD SPECIMENOrdering Facility: [facility] Address: [address] [place], [place] [address] Performed By: #### 2 4323-8, 3016-3 ####[facility] LABIA [id number] [place] [id number] [place] ECG COMPLETEon 10-27-2021 ECG COMPLETE Normal [facility] HISTORY PHYSICALon HISTORY PHYSICAL Normal [facility] PT panel Coag (PPP)on 2021 INR Coag (PPP) [Relative time] 2.2 {INR} High 0.9-1.3 [facility] Comment on above: Order Comment: Aaliyah gibson Type: BLOOD SPECIMENOrdering Facility: [facility] Address: [address] [place], [place] [address] Result Comment: Constanza min K Antagonist (VKA) Therapeutic Range: INR 2 to 3 (Target INR of 2.5)Note: For patients treated with VKA drugs, such as warfarin, the [place] [employer] 2012 Guideline recommends [...] al. Chest 2012, 141:7S-47SNishimura RA, et al. [facility] 2017, 70: 252-289 Performed By: #### 3 4528-0, 49831-2 ####[facility] [id number] [place] [address] [place] PT Coag (PPP) [Time] 22.4 s High 9.7-[facility] Comment on above: Order Comment: Aaliyah gibson Type: BLOOD SPECIMENOrdering Facility: [facility] Address: [address] [place] [address] Performed By: #### 3 4528-0, 82050-6 ####[facility] [id number] [place] [address] [place] TSH SerPl-aCncon 10-27-2021 TSH Qn 1.530 m[IU]/L Normal 0.270-4.20 0 [facility] Comment on above: Order Comment: Aaliyah gibson Type: BLOOD SPECIMENOrdering Facility: [facility] Address: [address] [place] [address] Performed By: #### 2 4323-8, 3016-3 ####[facility] LABCLIA [id number] [address] OF [facility] TYPE AND SCREEN,30 DAYon ABO O Normal [facility] Comment on above: Order Comment: Speci men Type: BLOOD SPECIMENOrdering Facility: [facility] Address: [address] [place] [address] Performed By: #### T SCR30 ####[facility] BLOOD BANKCLIA [id number] [address] HISTORICAL AB SCR STATUS Negative Normal [facility] Comment on above: Order Comment: Speci men Type: BLOOD SPECIMENOrdering Facility: [facility] Address: [address] [place] [address] Performed By: #### T SCR30 ####[facility] BLOOD BANKCLIA [id number] [address] OF [place] Rh Nom (Bld) Positive Normal [facility] Comment on above: Order Comment: Speci men Type: BLOOD SPECIMENOrdering Facility: [facility] Address: [address] [place] [address] Performed By: #### T SCR30 ####[facility] BLOOD BANKCLIA [id number] [address] OF [place] aPTT PPPon 10-27-2021 aPTT Coag (PPP) [Time] 35.8 s High 23.0-32.4 Cl [facility] Comment on above: Order Comment: Speci men Type: BLOOD SPECIMENOrdering Facility: [facility] Address: [address] [place] [address] Performed By: #### 3 4528-0, 34498-5 ####[facility] LABCLIA [id number] [address] OF [facility] Dougie 10-21-2021 CNPN Telephone ([facility]) ----- YEFIR YANEZ ([id number]) 1965 M [facility] Date Time Provider Department 10/21/21 HAYLEE WILBURN [facility] During your visit today, we recorded the [...] for Visit: Medication Problem [65] Cmt: Called [facility]'s pharmacy and canceled rx for cabzantinib and sent new order to [facility] speciality pharmacy. Prescriptions as of 10/21/2021 - [...] by this patient by: SPOUSE Safia Carr, [facility] Problem List As Of Date 10/21/2021 Noted [...] Encounter Status:Closed by AMERICA SCHWARTZ on 10/21/21 [facility] CNOVSPon 10-20-2021 CNOVSP Visit (SP) Office ([facility]) ----- YEFRI YANEZ ([id number]) 1965 M [facility] Date Time Provider Department 10/20/21 2:30 PM HAYLEE WILBURN [facility] During your visit today, we recorded the following information about you: Pulse Respiration Blood pressure Weight 60/minute 16/minute 130/78 115.2 kg Height 1.854 m aHylee Wilburn MD 10/21/2021 9:38 AM Signed [facility] Oncology Consult Note SERVICE DATE: October 20, 2021 CHIEF COMPLAINT: Yefri Yanez is a 56 year old male referred by Godfrey Ohara, regarding the management of metastatic renal cell ca. My findings and recommendations will be communicated back to Ms. Ohara via EMR. History was obtained from the [...] started treatment with cabo + nivo on [facility] 1820 on 08/08/2021. He has baseline HTN and developed worsening HTN after starting treatment. His cabo was held on 08/18/2021, resumed on 09/11/2021. The Nivo was held on 09/11/21 due to pneumonitis, and prednisone 60 mg daily was started and tapered off one week ago. Due to insurance change, he was taken off the trial and referred to [facility] to resume the treatment. He is [...] Tobacco comments (more content not included)... Normal [facility] CNCOon 10-16-2021 CNCO Letter Text Normal [facility] CNPNon 10-16-2021 CNPN Normal [facility] CNPNon 10-14-2021 CNPN Normal [facility] CBC W Auto Differential pane l (Bld)on 10-09-2021 Basophils (Bld) [#/Vol] 10*3/uL Normal <0.11 [facility] above: Order Comment: Speci men Type: BLOOD SPECIMENOrdering Facility: [facility] Address: [address] [address] Performed By: #### 5 7021-8 ####[facility] [id number] [place] Basophils/100 WBC (Bld) 0.3 % Normal [facility] Comment on above: Order Comment: Speci men Type: BLOOD SPECIMENOrdering Facility: [facility] Address: [address] [address] Performed By: #### 5 7021-8 ####[facility] [id number] [place] Differential cell count method Nom (Bld) Auto Normal [facility] Comment on above: Order Comment: Speci men Type: BLOOD SPECIMENOrdering Facility: [facility] Address: [address] [place] [address] Performed By: #### 5 7021-8 ####[facility] [id number] [place] [address] [place] Eosinophils (Bld) [#/Vol] 0.03 10*3/uL Normal <0.46 [facility] Comment on above: Order Comment: Speci men Type: BLOOD SPECIMENOrdering Facility: [facility] Address: [address] [place] [address] Performed By: #### 5 7021-8 ####[facility] [place] [id number] [place] [address] STATES OF [facility] Eosinophils/100 WBC (Bld) 0.4 % Normal [facility] Comment on above: Order Comment: Speci men Type: BLOOD SPECIMENOrdering Facility: [facility] Address: [address] [place] [address] Performed By: #### 5 7021-8 ####[facility] [id number] [place] [address] [place] Erythrocyte distribution width (RBC) [Ratio] 17.2 % High 11.5-15.0 [facility] Comment on above: Order Comment: Speci men Type: BLOOD SPECIMENOrdering Facility: [facility] Address: [address] [place] [address] Performed By: #### 5 7021-8 ####[facility] [id number] [place] [address] [place] Hematocrit (Bld) [Volume fraction] 46.8 % Normal 39.0-51.0 [facility] Comment on above: Order Comment: Speci men Type: BLOOD SPECIMENOrdering Facility: [facility] Address: [address] [place] [address] Performed By: #### 5 7021-8 ####[facility] [id number] [place] [address] STATES OF [facility] Hemoglobin (Bld) [Mass/Vol] 15.5 g/dL Normal 13.0-17.0 [facility] Comment on above: Order Comment: Speci men Type: BLOOD SPECIMENOrdering Facility: [facility] Address: [address] [place] [address] Performed By: #### 5 7021-8 ####[facility] [id number] [place] [address] OF [facility] IMMATURE GRAN % 0.8 % Normal [facility] Comment on above: Order Comment: Speci men Type: BLOOD SPECIMENOrdering Facility: [facility] Address: [address] [place] [address] Performed By: #### 5 7021-8 ####[facility] [id number] [place] [address] STATES OF [facility] IMMATURE GRAN ABS 0.06 k/uL Normal <0.10 [facility] Comment on above: Order Comment: Speci men Type: BLOOD SPECIMENOrdering Facility: [facility] Address: [address] [place], [place] [address] Performed By: #### 5 7021-8 ####[facility] [place] [id number] [place] [address] [place] Lymphocytes (Bld) [#/Vol] 2.33 10*3/uL Normal 1.00-4.00 [facility] Comment on above: Order Comment: Speci men Type: BLOOD SPECIMENOrdering Facility: [facility] Address: [address] [place], [place] [address] Performed By: #### 5 7021-8 ####[facility] [id number] [place] [address] [place] Lymphocytes/100 WBC (Bld) 32.3 % Normal [facility] Comment on above: Order Comment: Speci men Type: BLOOD SPECIMENOrdering Facility: [facility] Address: [address] [place] [address] Performed By: #### 5 7021-8 ####[facility] [id number] [place] [address] [place] MCH (RBC) [Entitic mass] 30.2 pg Normal 26.0-34.0 [facility] Comment on above: Order Comment: Speci men Type: BLOOD SPECIMENOrdering Facility: [facility] Address: [address] [place] [address] Performed By: #### 5 7021-8 ####[facility] [id number] [place] [address] [place] MCHC (RBC) [Mass/Vol] 33.1 g/dL Normal 30.5-36.0 [facility] Comment on above: Order Comment: Speci men Type: BLOOD SPECIMENOrdering Facility: [facility] Address: [address] [place] [address] Performed By: #### 5 7021-8 ####[facility] [id number] [address] STATES OF [facility] MCV (RBC) [Entitic vol] 91.2 fL Normal 80.0-100.0 [facility] Comment on above: Order Comment: Speci men Type: BLOOD SPECIMENOrdering Facility: [facility] Address: [address] [place] [address] Performed By: #### 5 7021-8 ####[facility] [id number] [place] [address] [place] Monocytes (Bld) [#/Vol] 0.35 10*3/uL Normal <0.87 [facility] Comment on above: Order Comment: Speci men Type: BLOOD SPECIMENOrdering Facility: [facility] Address: [address] [place], [place] [address] Performed By: #### 5 7021-8 ####[facility] [id number] [place] [address] [place] Monocytes/100 WBC (Bld) 4.8 % Normal [facility] Comment on above: Order Comment: Speci men Type: BLOOD SPECIMENOrdering Facility: [facility] Address: [address] [place] [address] Performed By: #### 5 7021-8 ####[facility] [place] [id number] [place] [address] [place] Neutrophils (Bld) [#/Vol] 4.43 10*3/uL Normal 1.45-7.50 [facility] Comment on above: Order Comment: Speci men Type: BLOOD SPECIMENOrdering Facility: [facility] Address: [address] [place], [place] [address] Performed By: #### 5 7021-8 ####[facility] [id number] [place] [address] [place] Neutrophils/100 WBC (Bld) 61.4 % Normal [facility] Comment on above: Order Comment: Speci men Type: BLOOD SPECIMENOrdering Facility: [facility] Address: [address] [place], [place] [address] Performed By: #### 5 7021-8 ####[facility] [place] [id number] [place] [address] [place] Nucleated RBC (Bld) [#/Vol] 10*3/uL Normal <0.01 [facility] Comment on above: Order Comment: Speci men Type: BLOOD SPECIMENOrdering Facility: [facility] Address: [address] [place], [place] [address] Performed By: #### 5 7021-8 ####[facility] [id number] [place] [address] [place] Nucleated RBC/100 WBC (Bld) [Ratio] 0.0 /100 WBC Normal [facility] Comment on above: Order Comment: Speci men Type: BLOOD SPECIMENOrdering Facility: [facility] Address: [address] [place], [place] [address] Performed By: #### 5 7021-8 ####[facility] [place] [id number] [place] [address] [place] Platelet mean volume (Bld) [Entitic vol] 9.1 fL Normal 9.0-12.7 [facility] Comment on above: Order Comment: Speci men Type: BLOOD SPECIMENOrdering Facility: [facility] Address: [address] [place], [place] [address] Performed By: #### 5 7021-8 ####[facility] [id number] [place] [address] [place] Platelets (Bld) [#/Vol] 243 10*3/uL Normal 150-400 [facility] Comment on above: Order Comment: Speci men Type: BLOOD SPECIMENOrdering Facility: [facility] Address: [address] [place], [place] [address] Performed By: #### 5 7021-8 ####[facility] [id number] [place] [address] [place] RBC (Bld) [#/Vol] 5.13 10*6/uL Normal 4.20-6.00 [facility] Comment on above: Order Comment: Speci men Type: BLOOD SPECIMENOrdering Facility: [facility] Address: [address] [place], [place] [address] Performed By: #### 5 7021-8 ####[facility] [place] [id number] [place] [address] [place] WBC (Bld) [#/Vol] 7.22 10*3/uL Normal 3.70-11.00 [facility] Comment on above: Order Comment: Speci men Type: BLOOD SPECIMENOrdering Facility: [facility] Address: [address] [place] [address] Performed By: #### 5 7021-8 ####[facility] [place] [id number] [place] [address] [place] CNNURSEon 10-09-2021 CNNURSE Normal [facility] CNOVSPon 10-09-2021 CNOVSP Normal [facility] Comprehensive metabolic 2000 panelon 10-09-2021 Albumin [Mass/Vol] 4.0 g/dL Normal 3.9-4.9 [facility] Comment on above: Order Comment: Speci men Type: BLOOD SPECIMENOrdering Facility: [facility] Address: [address] [place], [place] [address] Performed By: #### 2 4323-8, 3084-1, 78622-6 ####[facility] [place] [id number] [place] [address] [place] ALP [Catalytic activity/Vol] 89 U/L Normal 38-113 [facility] Comment on above: Order Comment: Speci men Type: BLOOD SPECIMENOrdering Facility: [facility] Address: [address] [place], [place] [address] Performed By: #### 2 4323-8, 3084-1, 71609-6 ####[facility] [id number] [place] [address] [place] ALT [Catalytic activity/Vol] 50 U/L Normal 10-54 [facility] Comment on above: Order Comment: Speci men Type: BLOOD SPECIMENOrdering Facility: [facility] Address: [address] [place], [place] [address] Performed By: #### 2 4323-8, 3084-1, ####[facility] [id number] [place] [address] [place] Anion gap [Moles/Vol] 9 mmol/L Normal 9-18 [facility] Comment on above: Order Comment: Speci men Type: BLOOD SPECIMENOrdering Facility: [facility] Address: [address] [place], [place] [address] Performed By: #### 2 4323-8, 308-1, ####[facility] [id number] [place] [address] [place] AST [Catalytic activity/Vol] 24 U/L Normal 14-40 [facility] Comment on above: Order Comment: Speci men Type: BLOOD SPECIMENOrdering Facility: [facility] Address: [address] [place], [place] [address] Performed By: #### 2 4323-8, 308-1, ####[facility] [id number] [place] [address] [place] Bilirubin [Mass/Vol] 0.3 mg/dL Normal 0.2-1.3 [facility] Comment on above: Order Comment: Speci men Type: BLOOD SPECIMENOrdering Facility: [facility] Address: [address] [place] [address] Performed By: #### 2 4323-8, 3084-1, ####[facility] [id number] [address] [id number] [place] Calcium [Mass/Vol] 9.3 mg/dL Normal 8.5-10.2 [facility] Comment on above: Order Comment: Speci men Type: BLOOD SPECIMENOrdering Facility: [facility] Address: [address] [place], [place] [phone] Performed By: #### 2 4323-8, 3084-1, ####[facility] [id number] [place] [address] [place] Chloride [Moles/Vol] 104 mmol/L Normal 97-105 [facility] Comment on above: Order Comment: Speci men Type: BLOOD SPECIMENOrdering Facility: [facility] Address: [address] [place], [place] [address] Performed By: #### 2 4323-8, 3084-1, ####[facility] [id number] [place] [address] [place] CO2 [Moles/Vol] 28 mmol/L Normal 22-30 [facility] Comment on above: Order Comment: Speci men Type: BLOOD SPECIMENOrdering Facility: [facility] Address: [address] [place], [place] [address] Performed By: #### 2 4323-8, 3084-1, ####[facility] [id number] [place] [address] [place] Creatinine [Mass/Vol] 1.19 mg/dL Normal 0.73-1.22 [facility] Comment on above: Order Comment: Speci men Type: BLOOD SPECIMENOrdering Facility: [facility] Address: [address] [place], [place] [address] Performed By: #### 2 4323-8, 30806-06, ####[facility] [id number] [place] [address] [place] ESTIMATED GLOMERULAR FILTRATION RATE 71 mL/min/1.73m??? Normal >=60 [facility] Comment on above: Order Comment: Speci men Type: BLOOD SPECIMENOrdering Facility: [facility] Address: [address] [place], [place] [phone] Result Comment: Laurita mated Glomerular Filtration Rate [...] actual GFR. Performed By: #### 2 4323-8, 308-1, ####[facility] [id number] [place] [address] [place] Glucose [Mass/Vol] 131 mg/dL High 74-99 [facility] Comment on above: Order Comment: Speci paige Type: BLOOD SPECIMENOrdering Facility: [facility] Address: [address] [phone] Result Comment: The [place] [employer] (ADA) provides guidance for cutoff [...] Standards of Medical Care in Diabetes 2016, [place] [employer]. Diabetes Care. 2016.39(Suppl 1). Performed By: #### 2 4323-8, 3083-03, ####[facility] [id number] [place] [id number] [place] Potassium [Moles/Vol] 4.0 mmol/L Normal 3.7-5.1 [facility] Comment on above: Order Comment: Aaliyah gibson Type: BLOOD SPECIMENOrdering Facility: [facility] Address: [address] [place] [address] Performed By: #### 2 4323-8, 3084-, ####[facility] [id number] [place] [address] [place] Protein [Mass/Vol] 6.4 g/dL Normal 6.3-8.0 [facility] Comment on above: Order Comment: Speci men Type: BLOOD SPECIMENOrdering Facility: [facility] Address: [address] [place] [address] Performed By: #### 2 4323-8, 3084-1, 70195-0 ####[facility] [id number] [place] [address] [place] Sodium [Moles/Vol] 141 mmol/L Normal 136-144 [facility] Comment on above: Order Comment: Speci men Type: BLOOD SPECIMENOrdering Facility: [facility] Address: [address] [place] [address] Performed By: #### 2 4323-8, 3084-1, ####[facility] [id number] [place] [address] [place] Urea nitrogen [Mass/Vol] 19 mg/dL Normal 9-24 [facility] Comment on above: Order Comment: Speci men Type: BLOOD SPECIMENOrdering Facility: [facility] Address: [address] [place] [address] Performed By: #### 2 4323-8, 3084-1, ####[facility] [id number] [place] [address] [place] LDH SerPl-cCncon 10-09-2021 LDH [Catalytic activity/Vol] 348 U/L High 135-225 [facility] Comment on above: Order Comment: Speci men Type: BLOOD SPECIMENOrdering Facility: [facility] Address: [address] [place], [place] [address] Performed By: #### 2 532-0 ####[facility] [id number] [address] OF [facility] Magnesium SerPl-mCncon 10-09 Magnesium [Mass/Vol] 2.2 mg/dL Normal 1.7-2.3 [facility] Comment on above: Order Comment: Aaliyah gibson Type: BLOOD SPECIMENOrdering Facility: [facility] Address: [address] [place] [address] Performed By: #### 2 4323-8, 3084-1, 58443-9 ####[facility] [id number] [address] [place] PT panel Coag (PPP)on 2021 INR Coag (PPP) [Relative time] 2.8 {INR} High 0.9-1.3 [facility] Comment on above: Order Comment: Aaliyah gibson Type: BLOOD SPECIMENOrdering Facility: [facility] Address: [address] [place] [address] Result Comment: Constanza min K Antagonist (VKA) Therapeutic Range: INR 2 to 3 (Target INR of 2.5)Note: For patients treated with VKA drugs, such as warfarin, the [place] [employer] 2012 Guideline recommends [...] JACC 2017, 70: 252-289 Performed By: #### 1 4979-9, 01834-1 ####[facility] [id number] [address] [place] PT Coag (PPP) [Time] 27.9 s High 9.7-13.0 [facility] Comment on above: Order Comment: Speci men Type: BLOOD SPECIMENOrdering Facility: [facility] Address: [address] [place] [address] Performed By: #### 1 4979-9, 19852-3 ####[facility] LABIA [id number] [place] [address] [place] Phosphate SerPl-mCncon 10-09 Phosphate [Mass/Vol] 3.4 mg/dL Normal 2.7-4.8 [facility] Comment on above: Order Comment: Speci men Type: BLOOD SPECIMENOrdering Facility: [facility] Address: [address] [place] [address] Performed By: #### 2 777-1 ####[facility] [id number] [place] [address] [place] T3Free SerPl-mCncon 10-10-19 22 Free T3 [Mass/Vol] 3.0 pg/mL Normal 2.3-4.1 [facility] Comment on above: Order Comment: Speci men Type: BLOOD SPECIMENOrdering Facility: [facility] Address: [address] [place] [address] Performed By: #### 3 051-0, 3024-7 ####[facility] LABIA [id number] [place] [address] [place] T4 Free SerPl-mCncon 022 Free T4 [Mass/Vol] 1.2 ng/dL Normal 0.9-1.7 [facility] Comment on above: Order Comment: Speci men Type: BLOOD SPECIMENOrdering Facility: [facility] Address: [address] [place] [address] Performed By: #### 3 051-0, 3024-7 ####[facility] LABIA [id number] [place] [address] [place] TSH SerPl-aCncon 10-09-2021 TSH Qn 0.925 m[IU]/L Normal 0.270-4.20 0 [facility] Comment on above: Order Comment: Speci men Type: BLOOD SPECIMENOrdering Facility: [facility] Address: [address] [place] [address] Performed By: #### 3 016-3 ####[facility] [id number] [place] [address] [place] Urate SerPl-mCncon Urate [Mass/Vol] 8.3 mg/dL High 4.0-8.1 [facility] Comment on above: Order Comment: Speci men Type: BLOOD SPECIMENOrdering Facility: [facility] Address: [address] [place] [address] Performed By: #### 2 4323-8, 3084-1, 38819-4 ####[facility] [id number] [place] [address] [place] aPTT PPPon 10-09-2021 aPTT Coag (PPP) [Time] 31.7 s Normal 23.0-32.4 [facility] Comment on above: Order Comment: Speci men Type: BLOOD SPECIMENOrdering Facility: [facility] Address: [address] [place] [address] Performed By: #### 1 4979-9, 38059-4 ####[facility] [id number] [place] [address] [place] CNPNon 09-29-2021 CNPN Normal [facility] CNPTOUTREACHon 09-29-2021 CNPTOUTREACH Normal [facility] Basic metabolic 2000 panelon 09-26-2021 Anion gap [Moles/Vol] 6 mmol/L Low 9-18 [facility] Comment on above: Order Comment: Speci men Type: BLOOD SPECIMENOrdering Facility: [facility] Address: [address] [place], [place] [address] Performed By: #### 2 4321-2 ####[facility] LABCLIA [id number] [place] [address] [place] Calcium [Mass/Vol] 9.9 mg/dL Normal 8.5-10.2 [facility] Comment on above: Order Comment: Speci men Type: BLOOD SPECIMENOrdering Facility: [facility] Address: [address] [place], [place] [address] Performed By: #### 2 4321-2 ####[facility] LABCLIA [id number] [place] [address] [place] Chloride [Moles/Vol] 98 mmol/L Normal 97-105 [facility] Comment on above: Order Comment: Speci men Type: BLOOD SPECIMENOrdering Facility: [facility] Address: [address] [place], [place] [address] Performed By: #### 2 4321-2 ####[facility] LABCLIA [id number] [place] [address] [place] CO2 [Moles/Vol] 38 mmol/L High 22-30 [facility] Comment on above: Order Comment: Speci men Type: BLOOD SPECIMENOrdering Facility: [facility] Address: [address] [place], [place] [address] Performed By: #### 2 4321-2 ####[facility] LABCLIA [id number] [place] [address] [place] Creatinine [Mass/Vol] 1.07 mg/dL Normal 0.73-1.22 [facility] Comment on above: Order Comment: Speci men Type: BLOOD SPECIMENOrdering Facility: [facility] Address: [address] [place], [place] [address] Performed By: #### 2 4321-2 ####[facility] LABCLIA [id number] [place] [address] [place] ESTIMATED GLOMERULAR FILTRATION RATE 81 mL/min/1.73m??? Normal >=60 [facility] Comment on above: Order Comment: Aaliyah gibson Type: BLOOD SPECIMENOrdering Facility: [facility] Address: [address] [place] [address] Result Comment: Laurita mated Glomerular Filtration Rate [...] actual GFR. Performed By: #### 2 4321-2 ####[facility] [id number] [place] [address] [place] Glucose [Mass/Vol] 127 mg/dL High 74-99 [facility] Comment on above: Order Comment: Aaliyah gibson Type: BLOOD SPECIMENOrdering Facility: [facility] Address: [address] [place] [address] Result Comment: The [place] [employer] (ADA) provides guidance for cutoff [...] Standards of Medical Care in Diabetes 2016, [place] [employer]. Diabetes Care. 2016.39(Suppl 1). Performed By: #### 2 4321-2 ####[facility] [id number] [place] [address] [place] Potassium [Moles/Vol] 3.7 mmol/L Normal 3.7-5.1 [facility] Comment on above: Order Comment: Speci men Type: BLOOD SPECIMENOrdering Facility: [facility] Address: [address] [place], [place] [address] Performed By: #### 2 4321-2 ####[facility] LABCLIA [id number] [place] [address] [place] Sodium [Moles/Vol] 142 mmol/L Normal 136-144 [facility] Comment on above: Order Comment: Speci men Type: BLOOD SPECIMENOrdering Facility: [facility] Address: [address] [place] [address] Performed By: #### 2 4321-2 ####[facility] LABCLIA [id number] [place] [address] [place] Urea nitrogen [Mass/Vol] 27 mg/dL High 9-24 [facility] Comment on above: Order Comment: Speci men Type: BLOOD SPECIMENOrdering Facility: [facility] Address: [address] [place] [address] Performed By: #### 2 4321-2 ####[facility] LABIA [id number] [place] [address] [place] CBC panel Auto (Bld)on 09-26 Erythrocyte distribution width (RBC) [Ratio] 17.2 % High 11.5-15.0 [facility] Comment on above: Order Comment: Speci men Type: BLOOD SPECIMENOrdering Facility: [facility] Address: [address] [place], [place] [address] Performed By: #### 5 8410-2 ####[facility] LABCLIA [id number] [address] [place] Hematocrit (Bld) [Volume fraction] 41.7 % Normal 39.0-51.0 [facility] Comment on above: Order Comment: Speci men Type: BLOOD SPECIMENOrdering Facility: [facility] Address: [address] [place], [place] [address] Performed By: #### 5 8410-2 ####[facility] LABIA [id number] [place] [address] [place] Hemoglobin (Bld) [Mass/Vol] 13.4 g/dL Normal 13.0-17.0 [facility] Comment on above: Order Comment: Speci men Type: BLOOD SPECIMENOrdering Facility: [facility] Address: [address] [place], [place] [address] Performed By: #### 5 8410-2 ####[facility] LABIA [id number] [place] [address] [place] MCH (RBC) [Entitic mass] 29.8 pg Normal 26.0-34.0 [facility] Comment on above: Order Comment: Speci men Type: BLOOD SPECIMENOrdering Facility: [facility] Address: [address] [place], [place] [address] Performed By: #### 5 8410-2 ####[facility] LABIA [id number] [address] [place] MCHC (RBC) [Mass/Vol] 32.1 g/dL Normal 30.5-36.0 [facility] Comment on above: Order Comment: Speci men Type: BLOOD SPECIMENOrdering Facility: [facility] Address: [address] [place] [address] Performed By: #### 5 8410-2 ####[facility] LABIA [id number] [place] [address] [place] MCV (RBC) [Entitic vol] 92.7 fL Normal 80.0-100.0 [facility] Comment on above: Order Comment: Speci men Type: BLOOD SPECIMENOrdering Facility: [facility] Address: [address] [place], [place] [address] Performed By: #### 5 8410-2 ####[facility] LABCLIA [id number] [place] [address] [place] Nucleated RBC (Bld) [#/Vol] 0.02 10*3/uL High <0.01 [facility] Comment on above: Order Comment: Speci men Type: BLOOD SPECIMENOrdering Facility: [facility] Address: [address] [place], [place] [address] Performed By: #### 5 8410-2 ####[facility] LABIA [id number] [place] [address] [place] Platelet mean volume (Bld) [Entitic vol] 10.4 fL Normal 9.0-12.7 [facility] Comment on above: Order Comment: Speci men Type: BLOOD SPECIMENOrdering Facility: [facility] Address: [address] [place] [address] Performed By: #### 5 8410-2 ####[facility] LABIA [id number] [place] [address] [place] Platelets (Bld) [#/Vol] 177 10*3/uL Normal 150-400 [facility] Comment on above: Order Comment: Speci men Type: BLOOD SPECIMENOrdering Facility: [facility] Address: [address] [place], [place] [address] Performed By: #### 5 8410-2 ####[facility] LABIA [id number] [place] [address] [place] RBC (Bld) [#/Vol] 4.50 10*6/uL Normal 4.20-6.00 [facility] Comment on above: Order Comment: Speci men Type: BLOOD SPECIMENOrdering Facility: [facility] Address: [address] [place], [place] [address] Performed By: #### 5 8410-2 ####[facility] LABIA [id number] [place] [address] [place] WBC (Bld) [#/Vol] 9.26 10*3/uL Normal 3.70-11.00 [facility] Comment on above: Order Comment: Aaliyah gibson Type: BLOOD SPECIMENOrdering Facility: [facility] Address: [address] [place] [phone] Performed By: #### 5 8410-2 ####[facility] LABCLIA [id number] [address] [id number] [id number] [facility] [place] CNDSon 09-26-2021 CNDS Normal [facility] ECG COMPLETEon 09-26-2021 ECG COMPLETE Normal [facility] ECHOLon 09-26-2021 ECHOL Normal [facility] NURSING PROGon 09-26-2021 NURSING PROG Normal [facility] PT EDon 09-26-2021 PT ED Normal [facility] PT panel Coag (PPP)on 2021 INR Coag (PPP) [Relative time] 1.3 {INR} Normal 0.9-1.3 [facility] Comment on above: Order Comment: Aaliyah gibson Type: BLOOD SPECIMENOrdering Facility: [facility] Address: [address] [place] [phone] Result Comment: Constanza min K Antagonist (VKA) Therapeutic Range: INR 2 to 3 (Target INR of 2.5)Note: For patients treated with VKA drugs, such as warfarin, the [place] [employer] 2012 Guideline recommends [...] al. Chest 2012, 141:7S-47SNishnini RA, et al. JACC 2017, 70: 252-289 Performed By: #### 3 4528-0 ####[facility] LABCLIA [id number] [place] [address] [place] PT Coag (PPP) [Time] 13.5 s High 9.7-13.0 [facility] Comment on above: Order Comment: Speci men Type: BLOOD SPECIMENOrdering Facility: [facility] Address: [address] [place] [address] Performed By: #### 3 4528-0 ####[facility] LABCLIA [id number] [place] [address] [place] ANES POSTPROC EVALon 022 ANES POSTPROC EVAL Normal [facility] ANES PRE-OPon 09-25-2021 ANES PRE-OP Normal [facility] Basic metabolic 2000 panelon 09-25-2021 Anion gap [Moles/Vol] 10 mmol/L Normal 9-18 [facility] Comment on above: Order Comment: Speci men Type: BLOOD SPECIMENOrdering Facility: [facility] Address: [address] [place] [address] Performed By: #### 1 9123-9, 38711-1 ####[facility] LABCLIA [id number] [place] [address] [place] Calcium [Mass/Vol] 9.4 mg/dL Normal 8.5-10.2 [facility] Comment on above: Order Comment: Speci men Type: BLOOD SPECIMENOrdering Facility: [facility] Address: [address] [place] [address] Performed By: #### 1 9123-9, 58395-0 ####[facility] LABCLIA [id number] [place] [id number] [place] Chloride [Moles/Vol] 99 mmol/L Normal 97-105 [facility] Comment on above: Order Comment: Speci men Type: BLOOD SPECIMENOrdering Facility: [facility] Address: [address] [place] [address] Performed By: #### 1 91239, 80409-7 ####[facility] LABCLIA [id number] [address] STATES OF [facility] CO2 [Moles/Vol] 31 mmol/L High 22-30 [facility] Comment on above: Order Comment: Speci men Type: BLOOD SPECIMENOrdering Facility: [facility] Address: [address] [place] [address] Performed By: #### 1 91239, 11213-4 ####[facility] LABIA [id number] [address] Creatinine [Mass/Vol] 0.95 mg/dL Normal 0.73-1.22 [facility] Comment on above: Order Comment: Speci men Type: BLOOD SPECIMENOrdering Facility: [facility] Address: [address] [place] [address] Performed By: #### 1 91239, 59830-4 ####[facility] LABIA [id number] [address] ESTIMATED GLOMERULAR FILTRATION RATE 93 mL/min/1.73m??? Normal >=60 [facility] Comment on above: Order Comment: Speci men Type: BLOOD SPECIMENOrdering Facility: [facility] Address: [address] [place] [address] Result Comment: Laurita mated Glomerular Filtration Rate [...] actual GFR. Performed By: #### 1 9123-9, 37311-4 ####[facility] LABCLIA [id number] [place] [address] [place] Glucose [Mass/Vol] 116 mg/dL High 74-99 [facility] Comment on above: Order Comment: Speci men Type: BLOOD SPECIMENOrdering Facility: [facility] Address: [address] [place], [place] [phone] Result Comment: The [place] [employer] (ADA) provides guidance for cutoff [...] Standards of Medical Care in Diabetes 2016, [place] [employer]. Diabetes Care. 2016.39(Suppl 1). Performed By: #### 1 9123-9, 16913-5 ####[facility] LABCLIA [id number] [place] [address] [place] Potassium [Moles/Vol] 3.8 mmol/L Normal 3.7-5.1 [facility] Comment on above: Order Comment: Speci men Type: BLOOD SPECIMENOrdering Facility: [facility] Address: [address] [place], [place] [phone] Performed By: #### 1 9123-9, 21892-5 ####[facility] LABCLIA [id number] [place] [address] [place] Sodium [Moles/Vol] 140 mmol/L Normal 136-144 [facility] Comment on above: Order Comment: Speci men Type: BLOOD SPECIMENOrdering Facility: [facility] Address: [address] [place], [place] [phone] Performed By: #### 1 9123-9, 11154-8 ####[facility] LABCLIA [id number] [place] [address] [place] Urea nitrogen [Mass/Vol] 24 mg/dL Normal 9-24 [facility] Comment on above: Order Comment: Speci men Type: BLOOD SPECIMENOrdering Facility: [facility] Address: [address] [place] [address] Performed By: #### 1 9123-9, 58980-6 ####[facility] LABIA [id number] [place] [address] [place] CASE MANAGEMon 09-25-2021 CASE MANAGEM Normal [facility] CBC panel Auto (Bld)on 09-25 Erythrocyte distribution width (RBC) [Ratio] 17.1 % High 11.5-15.0 [facility] Comment on above: Order Comment: Speci men Type: BLOOD SPECIMENOrdering Facility: [facility] Address: [address] [place] [address] Performed By: #### 5 8410-2 ####[facility] LABIA [id number] [place] [address] [place] Hematocrit (Bld) [Volume fraction] 41.6 % Normal 39.0-51.0 [facility] Comment on above: Order Comment: Speci men Type: BLOOD SPECIMENOrdering Facility: [facility] Address: [address] [place] [address] Performed By: #### 5 8410-2 ####[facility] LABIA [id number] [place] [address] [place] Hemoglobin (Bld) [Mass/Vol] 13.7 g/dL Normal 13.0-17.0 [facility] Comment on above: Order Comment: Speci men Type: BLOOD SPECIMENOrdering Facility: [facility] Address: [address] [place] [address] Performed By: #### 5 8410-2 ####[facility] LABIA [id number] [address] STATES OF [facility] MCH (RBC) [Entitic mass] 30.3 pg Normal 26.0-34.0 [facility] Comment on above: Order Comment: Speci men Type: BLOOD SPECIMENOrdering Facility: [facility] Address: [address] [place] [address] Performed By: #### 5 8410-2 ####[facility] LABIA [id number] [address] MCHC (RBC) [Mass/Vol] 32.9 g/dL Normal 30.5-36.0 [facility] Comment on above: Order Comment: Speci men Type: BLOOD SPECIMENOrdering Facility: [facility] Address: [address] [place] [address] Performed By: #### 5 8410-2 ####[facility] LABIA [id number] [address] OF [facility] MCV (RBC) [Entitic vol] 92.0 fL Normal 80.0-100.0 [facility] Comment on above: Order Comment: Speci men Type: BLOOD SPECIMENOrdering Facility: [facility] Address: [address] [place] [address] Performed By: #### 5 8410-2 ####[facility] LABIA [id number] [place] [address] [place] Nucleated RBC (Bld) [#/Vol] 0.03 10*3/uL High <0.01 [facility] Comment on above: Order Comment: Speci men Type: BLOOD SPECIMENOrdering Facility: [facility] Address: [address] [place], [place] [address] Performed By: #### 5 8410-2 ####[facility] LABIA [id number] [address] [place] Platelet mean volume (Bld) [Entitic vol] 10.2 fL Normal 9.0-12.7 [facility] Comment on above: Order Comment: Speci men Type: BLOOD SPECIMENOrdering Facility: [facility] Address: [address] [place] [address] Performed By: #### 5 8410-2 ####[facility] LABCLIA [id number] [place] [address] [place] Platelets (Bld) [#/Vol] 175 10*3/uL Normal 150-400 [facility] Comment on above: Order Comment: Speci men Type: BLOOD SPECIMENOrdering Facility: [facility] Address: [address] [place], [place] [address] Performed By: #### 5 8410-2 ####[facility] LABIA [id number] [place] [address] [place] RBC (Bld) [#/Vol] 4.52 10*6/uL Normal 4.20-6.00 [facility] Comment on above: Order Comment: Speci men Type: BLOOD SPECIMENOrdering Facility: [facility] Address: [address] [place], [place] [address] Performed By: #### 5 8410-2 ####[facility] LABIA [id number] [place] [address] [place] WBC (Bld) [#/Vol] 10.86 10*3/uL Normal 3.70-11.00 [facility] Comment on above: Order Comment: Speci men Type: BLOOD SPECIMENOrdering Facility: [facility] Address: [address] [place] [address] Performed By: #### 5 8410-2 ####[facility] LABIA [id number] [place] [address] [place] CNOVon 09-25-2021 CNOV Normal [facility] [id number] 09-25-2021 ECG01 Normal [facility] Magnesium SerPl-mCncon 09-25 Magnesium [Mass/Vol] 2.2 mg/dL Normal 1.7-2.3 [facility] Comment on above: Order Comment: Aaliyah gisbon Type: BLOOD SPECIMENOrdering Facility: [facility] Address: [address] [place] [address] Performed By: #### 1 9123-9, 06911-9 ####[facility] [id number] [place] [address] [place] POTASSIUM BLDon 09-25-2021 Potassium [Moles/Vol] 4.5 mmol/L Normal 3.7-5.1 [facility] Comment on above: Order Comment: Aaliyah gibson Type: BLOOD SPECIMENOrdering Facility: [facility] Address: [address] [place] [address] Performed By: #### K 1 ####[facility] [id number] [place] [address] [place] PT EDon 09-25-2021 PT ED Normal [facility] PT panel Coag (PPP)on 2021 INR Coag (PPP) [Relative time] 1.2 {INR} Normal 0.9-1.3 [facility] Comment on above: Order Comment: Aaliyah gibson Type: BLOOD SPECIMENOrdering Facility: [facility] Address: [address] [place] [address] Result Comment: Constanza min K Antagonist (VKA) Therapeutic Range: INR 2 to 3 (Target INR of 2.5)Note: For patients treated with VKA drugs, such as warfarin, the [employer] 2012 Guideline recommends [...] al. Chest 2012, 141:7S-47SNishimura RA, et al. [facility] 2017, 70: 252-289 Performed By: #### 3 [id number] ####[facility] LABCLIA [id number] [place] [address] [place] PT Coag (PPP) [Time] 12.7 s Normal 9.7-13.0 [facility] Comment on above: Order Comment: Speci men Type: BLOOD SPECIMENOrdering Facility: [facility] Address: [address] [place] [address] Performed By: #### 3 4528-0 ####[facility] LABIA [id number] [place] [address] [place] TEEon 09-25-2021 LISA Normal [facility] Basic metabolic 2000 panelon 09-24-2021 Anion gap [Moles/Vol] 12 mmol/L Normal 9-18 [facility] Comment on above: Order Comment: Speci men Type: BLOOD SPECIMENOrdering Facility: [facility] Address: [address] [place] [address] Performed By: #### 1 9123-9, 16788-8 ####[facility]IA [id number] [place] [address] [place] Calcium [Mass/Vol] 9.0 mg/dL Normal 8.5-10.2 [facility] Comment on above: Order Comment: Speci men Type: BLOOD SPECIMENOrdering Facility: [facility] Address: [address] [place], [place] [address] Performed By: #### 1 9123-9, 53932-8 ####[facility] LABIA [id number] [place] [id number] [place] Chloride [Moles/Vol] 100 mmol/L Normal 97-105 [facility] Comment on above: Order Comment: Speci men Type: BLOOD SPECIMENOrdering Facility: [facility] Address: [address] [place], [place] [address] Performed By: #### 1 9123-9, ####[facility] LABCLIA [id number] [place] [address] [place] CO2 [Moles/Vol] 29 mmol/L Normal 22-30 [facility] Comment on above: Order Comment: Speci men Type: BLOOD SPECIMENOrdering Facility: [facility] Address: [address] [place] [address] Performed By: #### 1 9123-9, ####[facility]IA [id number] [place] [address] [place] Creatinine [Mass/Vol] 1.08 mg/dL Normal 0.73-1.22 [facility] Comment on above: Order Comment: Speci men Type: BLOOD SPECIMENOrdering Facility: [facility] Address: [address] [place] [address] Performed By: #### 1 91239, ####[facility]IA [id number] [address] [place] ESTIMATED GLOMERULAR FILTRATION RATE 80 mL/min/1.73m??? Normal >=60 [facility] Comment on above: Order Comment: Speci men Type: BLOOD SPECIMENOrdering Facility: [facility] Address: [address] [place], [place] [address] Result Comment: Laurita mated Glomerular Filtration Rate [...] actual GFR. Performed By: #### 1 9123-9, 33734-4 ####[facility] LABCLIA [id number] [place] [address] [place] Glucose [Mass/Vol] 150 mg/dL High 74-99 [facility] Comment on above: Order Comment: Speci men Type: BLOOD SPECIMENOrdering Facility: [facility] Address: [address] [place] [address] Result Comment: The [place] [employer] (ADA) provides guidance for cutoff [...] Standards of Medical Care in Diabetes 2016, [place] [employer]. Diabetes Care. 2016.39(Suppl 1). Performed By: #### 1 9123-9, 53288-9 ####[facility]IA [id number] [place] [address] [place] Potassium [Moles/Vol] 3.5 mmol/L Low 3.7-5.1 [facility] Comment on above: Order Comment: Speci men Type: BLOOD SPECIMENOrdering Facility: [facility] Address: [address] [place], [place] [phone] Performed By: #### 1 9123-9, 20397-5 ####[facility]IA [id number] [place] [address] [place] Sodium [Moles/Vol] 141 mmol/L Normal 136-144 [facility] Comment on above: Order Comment: Speci men Type: BLOOD SPECIMENOrdering Facility: [facility] Address: [address] [place] [address] Performed By: #### 1 9123-9, 96245-8 ####[facility] LABCLIA [id number] [place] [address] [place] Urea nitrogen [Mass/Vol] 22 mg/dL Normal 9-24 [facility] Comment on above: Order Comment: Speci men Type: BLOOD SPECIMENOrdering Facility: [facility] Address: [address] [place] [address] Performed By: #### 1 9123-9, 48452-9 ####[facility] LABCLIA [id number] [place] [address] [place] CBC panel Auto (Bld)on 09-24 Erythrocyte distribution width (RBC) [Ratio] 17.2 % High 11.5-15.0 [facility] Comment on above: Order Comment: Speci men Type: BLOOD SPECIMENOrdering Facility: [facility] Address: [address] [place] [address] Performed By: #### 5 8410-2 ####[facility] LABCLIA [id number] [address] [place] Hematocrit (Bld) [Volume fraction] 42.3 % Normal 39.0-51.0 [facility] Comment on above: Order Comment: Speci men Type: BLOOD SPECIMENOrdering Facility: [facility] Address: [address] [place] [address] Performed By: #### 5 8410-2 ####[facility] LABCLIA [id number] [place] [address] [place] Hemoglobin (Bld) [Mass/Vol] 13.6 g/dL Normal 13.0-17.0 [facility] Comment on above: Order Comment: Speci men Type: BLOOD SPECIMENOrdering Facility: [facility] Address: [address] [place] [address] Performed By: #### 5 8410-2 ####[facility] LABCLIA [id number] [address] STATES OF [facility] MCH (RBC) [Entitic mass] 30.0 pg Normal 26.0-34.0 [facility] Comment on above: Order Comment: Speci men Type: BLOOD SPECIMENOrdering Facility: [facility] Address: [address] [place] [address] Performed By: #### 5 8410-2 ####[facility]IA [id number] [address] MCHC (RBC) [Mass/Vol] 32.2 g/dL Normal 30.5-36.0 [facility] Comment on above: Order Comment: Speci men Type: BLOOD SPECIMENOrdering Facility: [facility] Address: [address] [place] [address] Performed By: #### 5 8410-2 ####[facility] [id number] [address] [place] MCV (RBC) [Entitic vol] 93.4 fL Normal 80.0-100.0 [facility] Comment on above: Order Comment: Speci men Type: BLOOD SPECIMENOrdering Facility: [facility] Address: [address] [place] [address] Performed By: #### 5 8410-2 ####[facility] [id number] [place] [address] [place] Nucleated RBC (Bld) [#/Vol] 10*3/uL Normal <0.01 [facility] Comment on above: Order Comment: Speci men Type: BLOOD SPECIMENOrdering Facility: [facility] Address: [address] [place], [place] [address] Performed By: #### 5 8410-2 ####[facility] LABIA [id number] [address] [place] Platelet mean volume (Bld) [Entitic vol] 10.1 fL Normal 9.0-12.7 [facility] Comment on above: Order Comment: Speci men Type: BLOOD SPECIMENOrdering Facility: [facility] Address: [address] [place] [address] Performed By: #### 5 8410-2 ####[facility] LABCLIA [id number] [place] [address] [place] Platelets (Bld) [#/Vol] 186 10*3/uL Normal 150-400 [facility] Comment on above: Order Comment: Speci men Type: BLOOD SPECIMENOrdering Facility: [facility] Address: [address] [place], [place] [address] Performed By: #### 5 8410-2 ####[facility] LABCLIA [id number] [place] [address] [place] RBC (Bld) [#/Vol] 4.53 10*6/uL Normal 4.20-6.00 [facility] Comment on above: Order Comment: Speci men Type: BLOOD SPECIMENOrdering Facility: [facility] Address: [address] [place], [place] [address] Performed By: #### 5 8410-2 ####[facility] LABCLIA [id number] [place] [address] [place] WBC (Bld) [#/Vol] 9.42 10*3/uL Normal 3.70-11.00 [facility] Comment on above: Order Comment: Speci men Type: BLOOD SPECIMENOrdering Facility: [facility] Address: [address] [place] [address] Performed By: #### 5 8410-2 ####[facility] LABCLIA [id number] [place] [address] [place] Magnesium SerPl-mCncon 09-24 Magnesium [Mass/Vol] 2.1 mg/dL Normal 1.7-2.3 [facility] Comment on above: Order Comment: Aaliyah gibson Type: BLOOD SPECIMENOrdering Facility: [facility] Address: [address] [place] [address] Performed By: #### 1 9123-9, 65407-7 ####[facility] LABCLIA [id number] [place] [address] [place] POTASSIUM BLDon 09-24-2021 Potassium [Moles/Vol] 3.7 mmol/L Normal 3.7-5.1 [facility] Comment on above: Order Comment: Aaliyah gibson Type: BLOOD SPECIMENOrdering Facility: [facility] Address: [address] [place] [address] Performed By: #### K 1 ####[facility] LABCLIA [id number] [place] [address] [place] PT EDon 09-24-2021 PT ED Normal [facility] PT panel Coag (PPP)on 2021 INR Coag (PPP) [Relative time] 1.2 {INR} Normal 0.9-1.3 [facility] Comment on above: Order Comment: Aaliyah gibson Type: BLOOD SPECIMENOrdering Facility: [facility] Address: [address] [place] [address] Result Comment: Constanza min K Antagonist (VKA) Therapeutic Range: INR 2 to 3 (Target INR of 2.5)Note: For patients treated with VKA drugs, such as warfarin, the [place] [employer] 2012 Guideline recommends [...] al. Chest 2012, 141:7S-47SNishimura RA, et al. [facility] 2017, 70: 252-289 Performed By: #### 3 4528-0 ####[facility] [id number] [address] [place] PT Coag (PPP) [Time] 12.3 s Normal 9.7-13.0 [facility] Comment on above: Order Comment: Speci men Type: BLOOD SPECIMENOrdering Facility: [facility] Address: [address] [place] [address] Performed By: #### 3 4528-0 ####[facility] [id number] [address] [place] PTT, ANTICOAGULANT THERAPYon 09-24-2021 aPTT Coag (PPP) [Time] 34.3 s High 23.0-32.4 [facility] Comment on above: Order Comment: Speci men Type: BLOOD SPECIMENOrdering Facility: [facility] Address: [address] [place] [address] Performed By: #### P TTAC ####[facility] [id number] [address] aPTT Coag (PPP) [Time] 53.2 s High 23.0-32.4 [facility] Comment on above: Order Comment: Speci men Type: BLOOD SPECIMENOrdering Facility: [facility] Address: [address] [place] [address] Performed By: #### P TTAC ####[facility] [id number] [place] [address] [place] Basic metabolic 2000 panelon 09-23-2021 Anion gap [Moles/Vol] 9 mmol/L Normal 9-18 [facility] Comment on above: Order Comment: Speci men Type: BLOOD SPECIMENOrdering Facility: [facility] Address: [address] [place], [place] [address] Performed By: #### 3 016-3, 36399-7, 76222-4, 26148-8 ####[facility] LABCLIA [id number] [place] [address] [place] Calcium [Mass/Vol] 9.1 mg/dL Normal 8.5-10.2 [facility] Comment on above: Order Comment: Speci men Type: BLOOD SPECIMENOrdering Facility: [facility] Address: [address] [place] [address] Performed By: #### 3 016-3, 71270-2, 76042-7, ####[facility] LABCLIA [id number] [place] [address] [place] Chloride [Moles/Vol] 100 mmol/L Normal 97-105 [facility] Comment on above: Order Comment: Speci men Type: BLOOD SPECIMENOrdering Facility: [facility] Address: [address] [place] [address] Performed By: #### 3 016-3, 52135-5, 66344-9, ####[facility] LABCLIA [id number] [place] [address] [place] CO2 [Moles/Vol] 32 mmol/L High 22-30 [facility] Comment on above: Order Comment: Speci men Type: BLOOD SPECIMENOrdering Facility: [facility] Address: [address] [place] [address] Performed By: #### 3 016-3, 56214-9, 76412-9, ####[facility] LABCLIA [id number] [place] [address] [place] Creatinine [Mass/Vol] 1.20 mg/dL Normal 0.73-1.22 [facility] Comment on above: Order Comment: Speci men Type: BLOOD SPECIMENOrdering Facility: [facility] Address: [address] [place] [phone] Performed By: #### 3 016-3, 42993-5, 51211-5, 82746-3 ####[facility]IA [id number] [place] [address] [place] ESTIMATED GLOMERULAR FILTRATION RATE 71 mL/min/1.73m??? Normal >=60 [facility] Comment on above: Order Comment: Aaliyah gibson Type: BLOOD SPECIMENOrdering Facility: [facility] Address: [address] [place], [place] [phone] Result Comment: Laurita mated Glomerular Filtration Rate [...] actual GFR. Performed By: #### 3 016-3, 51997-7, 00483-8, 05246-7 ####[facility] LABCLIA [id number] [place] [address] [place] Glucose [Mass/Vol] 133 mg/dL High 74-99 [facility] Comment on above: Order Comment: Aaliyah gibson Type: BLOOD SPECIMENOrdering Facility: [facility] Address: [address] [place], [place] [phone] Result Comment: The [place] [employer] (ADA) provides guidance for cutoff [...] Standards of Medical Care in Diabetes 2016, [place] [employer]. Diabetes Care. 2016.39(Suppl 1). Performed By: #### 3 016-3, 20105-9, 21967-7, ####[facility] LABCLIA [id number] [place] [address] [place] Potassium [Moles/Vol] 3.1 mmol/L Low 3.7-5.1 [facility] Comment on above: Order Comment: Speci men Type: BLOOD SPECIMENOrdering Facility: [facility] Address: [address] [place] [address] Performed By: #### 3 016-3, 20743-0, 48765-9, ####[facility] LABIA [id number] [place] [address] [place] Sodium [Moles/Vol] 141 mmol/L Normal 136-144 [facility] Comment on above: Order Comment: Speci men Type: BLOOD SPECIMENOrdering Facility: [facility] Address: [address] [place] [address] Performed By: #### 3 016-3, 18099-3, 21474-6, ####[facility] [id number] [place] [address] [place] Urea nitrogen [Mass/Vol] 22 mg/dL Normal 9-24 [facility] Comment on above: Order Comment: Speci men Type: BLOOD SPECIMENOrdering Facility: [facility] Address: [address] [place] [address] Performed By: #### 3 016-3, 36925-6, 92694-0, ####[facility] LABIA [id number] [place] [address] [place] CASE MGT INIT ASSESon 2021 CASE MGT INIT ASSES Normal [facility] CBC W Auto Differential pane l (Bld)on 09-23-2021 Basophils (Bld) [#/Vol] 10*3/uL Normal <0.11 [facility] Comment on above: Order Comment: Speci men Type: BLOOD SPECIMENOrdering Facility: [facility] Address: [address] [place], [place] [address] Performed By: #### 5 7021-8 ####[facility] LABCLIA [id number] [place] [address] [place] Basophils/100 WBC (Bld) 0.1 % Normal C [facility] Comment on above: Order Comment: Speci men Type: BLOOD SPECIMENOrdering Facility: [facility] Address: [address] [place], [place] [address] Performed By: #### 5 7021-8 ####[facility] LABCLIA [id number] [place] [address] [place] Differential cell count method Nom (Bld) Auto Normal [facility] Comment on above: Order Comment: Speci men Type: BLOOD SPECIMENOrdering Facility: [facility] Address: [address] [place], [place] [address] Performed By: #### 5 7021-8 ####[facility] LABCLIA [id number] [place] [address] [place] Eosinophils (Bld) [#/Vol] 10*3/uL Normal <0.46 [facility] Comment on above: Order Comment: Speci men Type: BLOOD SPECIMENOrdering Facility: [facility] Address: [address] [place], [place] [address] Performed By: #### 5 7021-8 ####[facility] LABCLIA [id number] [place] [address] [place] Eosinophils/100 WBC (Bld) 0.0 % Normal [facility] Comment on above: Order Comment: Speci men Type: BLOOD SPECIMENOrdering Facility: [facility] Address: [address] [place], [place] [address] Performed By: #### 5 7021-8 ####[facility]IA [id number] [place] [address] [place] Erythrocyte distribution width (RBC) [Ratio] 17.2 % High 11.5-15.0 [facility] Comment on above: Order Comment: Speci men Type: BLOOD SPECIMENOrdering Facility: [facility] Address: [address] [place] [address] Performed By: #### 5 7021-8 ####[facility]IA [id number] [place] [address] [place] Hematocrit (Bld) [Volume fraction] 39.3 % Normal 39.0-51.0 [facility] Comment on above: Order Comment: Speci men Type: BLOOD SPECIMENOrdering Facility: [facility] Address: [address] [place] [address] Performed By: #### 5 7021-8 ####[facility] [id number] [place] [address] [place] Hemoglobin (Bld) [Mass/Vol] 12.7 g/dL Low 13.0-17.0 [facility] Comment on above: Order Comment: Speci men Type: BLOOD SPECIMENOrdering Facility: [facility] Address: [address] [place] [address] Performed By: #### 5 7021-8 ####[facility] [id number] [address] [place] IMMATURE GRAN % 0.7 % Normal [facility] Comment on above: Order Comment: Speci men Type: BLOOD SPECIMENOrdering Facility: [facility] Address: [address] [place], [place] [address] Performed By: #### 5 7021-8 ####[facility] [id number] [place] [address] [place] IMMATURE GRAN ABS 0.06 k/uL Normal <0.10 [facility] Comment on above: Order Comment: Speci men Type: BLOOD SPECIMENOrdering Facility: [facility] Address: [address] [place], [place] [address] Performed By: #### 5 7021-8 ####[facility] LABCLIA [id number] [place] [address] [place] Lymphocytes (Bld) [#/Vol] 1.69 10*3/uL Normal 1.00-4.00 [facility] Comment on above: Order Comment: Speci men Type: BLOOD SPECIMENOrdering Facility: [facility] Address: [address] [place], [place] [address] Performed By: #### 5 7021-8 ####[facility] LABCLIA [id number] [place] [address] [place] Lymphocytes/100 WBC (Bld) 18.7 % Normal [facility] Comment on above: Order Comment: Speci men Type: BLOOD SPECIMENOrdering Facility: [facility] Address: [address] [place], [place] [address] Performed By: #### 5 7021-8 ####[facility] LABIA [id number] [place] [address] [place] MCH (RBC) [Entitic mass] 30.2 pg Normal 26.0-34.0 [facility] Comment on above: Order Comment: Speci men Type: BLOOD SPECIMENOrdering Facility: [facility] Address: [address] [place], [place] [address] Performed By: #### 5 7021-8 ####[facility]IA [id number] [place] [address] [place] MCHC (RBC) [Mass/Vol] 32.3 g/dL Normal 30.5-36.0 [facility] Comment on above: Order Comment: Speci men Type: BLOOD SPECIMENOrdering Facility: [facility] Address: [address] [place] [address] Performed By: #### 5 7021-8 ####[facility] LABIA [id number] [place] [address] [place] MCV (RBC) [Entitic vol] 93.3 fL Normal 80.0-100.0 C [facility] Comment on above: Order Comment: Speci men Type: BLOOD SPECIMENOrdering Facility: [facility] Address: [address] [place], [place] [address] Performed By: #### 5 7021-8 ####[facility] LABIA [id number] [place] [address] [place] Monocytes (Bld) [#/Vol] 0.62 10*3/uL Normal <0.87 [facility] Comment on above: Order Comment: Speci men Type: BLOOD SPECIMENOrdering Facility: [facility] Address: [address] [place], [place] [address] Performed By: #### 5 7021-8 ####[facility]IA [id number] [address] [place] Monocytes/100 WBC (Bld) 6.8 % Normal C [facility] Comment on above: Order Comment: Speci men Type: BLOOD SPECIMENOrdering Facility: [facility] Address: [address] [place], [place] [address] Performed By: #### 5 7021-8 ####[facility] LABIA [id number] [place] [address] [place] Neutrophils (Bld) [#/Vol] 6.68 10*3/uL Normal 1.45-7.50 [facility] Comment on above: Order Comment: Speci men Type: BLOOD SPECIMENOrdering Facility: [facility] Address: [address] [place], [place] [address] Performed By: #### 5 7021-8 ####[facility] [id number] [place] [address] [place] Neutrophils/100 WBC (Bld) 73.7 % Normal [facility] Comment on above: Order Comment: Speci men Type: BLOOD SPECIMENOrdering Facility: [facility] Address: [address] [place], [place] [address] Performed By: #### 5 7021-8 ####[facility]CL[facility] [id number] [place] [address] [place] Nucleated RBC (Bld) [#/Vol] 10*3/uL Normal <0.01 [facility] Comment on above: Order Comment: Speci men Type: BLOOD SPECIMENOrdering Facility: [facility] Address: [address] [place], [place] [address] Performed By: #### 5 7021-8 ####[facility] [id number] [place] [address] [place] Nucleated RBC/100 WBC (Bld) [Ratio] 0.0 /100 WBC Normal [facility] Comment on above: Order Comment: Speci men Type: BLOOD SPECIMENOrdering Facility: [facility] Address: [address] [place], [place] [address] Performed By: #### 5 7021-8 ####[facility] [id number] [place] [address] [place] Platelet mean volume (Bld) [Entitic vol] 10.3 fL Normal 9.0-12.7 [facility] Comment on above: Order Comment: Speci men Type: BLOOD SPECIMENOrdering Facility: [facility] Address: [address] [place], [place] [address] Performed By: #### 5 7021-8 ####[facility]CL[facility] [id number] [place] [address] [place] Platelets (Bld) [#/Vol] 178 10*3/uL Normal 150-400 [facility] Comment on above: Order Comment: Speci men Type: BLOOD SPECIMENOrdering Facility: [facility] Address: [address] [place], [place] [address] Performed By: #### 5 7021-8 ####[facility] [id number] [place] [address] [place] RBC (Bld) [#/Vol] 4.21 10*6/uL Normal 4.20-6.00 [facility] Comment on above: Order Comment: Speci men Type: BLOOD SPECIMENOrdering Facility: [facility] Address: [address] [place], [place] [address] Performed By: #### 5 7021-8 ####[facility] [id number] [place] [address] [place] WBC (Bld) [#/Vol] 9.06 10*3/uL Normal 3.70-11.00 [facility] Comment on above: Order Comment: Speci men Type: BLOOD SPECIMENOrdering Facility: [facility] Address: [address] [place], [place] [address] Performed By: #### 5 7021-8 ####[facility] LABCLIA [id number] [place] [address] [place] CBC panel Auto (Bld)on 09-23 Erythrocyte distribution width (RBC) [Ratio] 17.1 % High 11.5-15.0 [facility] Comment on above: Order Comment: Speci men Type: BLOOD SPECIMENOrdering Facility: [facility] Address: [address] [place], [place] [id number] Performed By: #### 5 8410-2 ####[facility] LABCLIA [id number] [place] [address] [place] Hematocrit (Bld) [Volume fraction] 41.2 % Normal 39.0-51.0 [facility] Comment on above: Order Comment: Speci men Type: BLOOD SPECIMENOrdering Facility: [facility] [facility] Address: [address] [place], [place] [address] Performed By: #### 5 8410-2 ####[facility] [id number] [address] [place] Hemoglobin (Bld) [Mass/Vol] 13.3 g/dL Normal 13.0-17.0 [facility] Comment on above: Order Comment: Speci men Type: BLOOD SPECIMENOrdering Facility: [facility] Address: [address] [place] [address] Performed By: #### 5 8410-2 ####[facility] [id number] [address] [place] MCH (RBC) [Entitic mass] 30.4 pg Normal 26.0-34.0 [facility] Comment on above: Order Comment: Speci men Type: BLOOD SPECIMENOrdering Facility: [facility] Address: [address] [place], [place] [address] Performed By: #### 5 8410-2 ####[facility] [id number] [address] [place] MCHC (RBC) [Mass/Vol] 32.3 g/dL Normal 30.5-36.0 [facility] Comment on above: Order Comment: Speci men Type: BLOOD SPECIMENOrdering Facility: [facility] Address: [address] [place], [place] [address] Performed By: #### 5 8410-2 ####[facility] [id number] [place] [address] [place] MCV (RBC) [Entitic vol] 94.1 fL Normal 80.0-100.0 C [facility] Comment on above: Order Comment: Speci men Type: BLOOD SPECIMENOrdering Facility: [facility] Address: [address] [place], [place] [address] Performed By: #### 5 8410-2 ####[facility]CL[facility] [id number] [place] [address] [place] Nucleated RBC (Bld) [#/Vol] 10*3/uL Normal <0.01 [facility] Comment on above: Order Comment: Speci men Type: BLOOD SPECIMENOrdering Facility: [facility] Address: [address] [place], [place] [address] Performed By: #### 5 8410-2 ####[facility] LABIA [id number] [place] [address] [place] Platelet mean volume (Bld) [Entitic vol] 10.0 fL Normal 9.0-12.7 [facility] Comment on above: Order Comment: Speci men Type: BLOOD SPECIMENOrdering Facility: [facility] Address: [address] [place] [address] Performed By: #### 5 8410-2 ####[facility] LABIA [id number] [place] [address] [place] Platelets (Bld) [#/Vol] 186 10*3/uL Normal 150-400 [facility] Comment on above: Order Comment: Speci men Type: BLOOD SPECIMENOrdering Facility: [facility] Address: [address] [place], [place] [address] Performed By: #### 5 8410-2 ####[facility] LABIA [id number] [place] [address] [place] RBC (Bld) [#/Vol] 4.38 10*6/uL Normal 4.20-6.00 [facility] Comment on above: Order Comment: Speci men Type: BLOOD SPECIMENOrdering Facility: [facility] Address: [address] [place], [place] [address] Performed By: #### 5 8410-2 ####[facility] LABIA [id number] [address] [id number] [address] [place] WBC (Bld) [#/Vol] 8.98 10*3/uL Normal 3.70-11.00 [facility] Comment on above: Order Comment: Speci men Type: BLOOD SPECIMENOrdering Facility: [facility] Address: [address] [place] [address] Performed By: #### 5 8410-2 ####[facility]CL[facility] [id number] [place] [address] [place] CNOVon 09-23-2021 CNOV Normal [facility] metabolic 2000 panelon 09-23-2021 Albumin [Mass/Vol] 3.6 g/dL Low 3.9-4.9 [facility] Comment on above: Order Comment: Speci men Type: BLOOD SPECIMENOrdering Facility: [facility] Address: [address] [place] [address] Performed By: #### 2 4323-8, 34610-2, 73704-5 ####[facility]CL[facility] [id number] [place] [address] [place] ALP [Catalytic activity/Vol] 93 U/L Normal 38-113 [facility] Comment on above: Order Comment: Speci men Type: BLOOD SPECIMENOrdering Facility: [facility] Address: [address] [place], [place] [address] Performed By: #### 2 4323-8, 97944-8, 66593-9 ####[facility]CL[facility] [id number] [place] [address] [place] ALT [Catalytic activity/Vol] 112 U/L High 10-54 [facility] Comment on above: Order Comment: Speci men Type: BLOOD SPECIMENOrdering Facility: [facility] Address: [address] [place], [place] [address] Performed By: #### 2 4323-8, 48474-2, 98335-2 ####[facility] LABCLIA [id number] [place] [address] [place] Anion gap [Moles/Vol] 10 mmol/L Normal 9-18 [facility] Comment on above: Order Comment: Speci men Type: BLOOD SPECIMENOrdering Facility: [facility] Address: [address] [place], [place] [address] Performed By: #### 2 4323-8, 19151-7, 45434-8 ####[facility] [id number] [place] [address] [place] AST [Catalytic activity/Vol] 52 U/L High 14-40 [facility] Comment on above: Order Comment: Speci men Type: BLOOD SPECIMENOrdering Facility: [facility] Address: [address] [place] [address] Performed By: #### 2 4323-8, 62492-9, ####[facility] [id number] [place] [address] [place] Bilirubin [Mass/Vol] 0.4 mg/dL Normal 0.2-1.3 [facility] Comment on above: Order Comment: Speci men Type: BLOOD SPECIMENOrdering Facility: [facility] Address: [address] [place], [place] [address] Performed By: #### 2 4323-8, 67886-3, 97257-8 ####[facility]CL[facility] [id number] [place] [address] [place] Calcium [Mass/Vol] 8.8 mg/dL Normal 8.5-10.2 [facility] Comment on above: Order Comment: Speci men Type: BLOOD SPECIMENOrdering Facility: [facility] Address: [address] [place], [place] [address] Performed By: #### 2 4323-8, 77530-8, 10919-4 ####[facility] LABCLIA [id number] [place] [address] [place] Chloride [Moles/Vol] 101 mmol/L Normal 97-105 [facility] Comment on above: Order Comment: Speci men Type: BLOOD SPECIMENOrdering Facility: [facility] Address: [address] [place] [address] Performed By: #### 2 4323-8, 88100-4, 97232-0 ####[facility] LABCLIA [id number] [place] [address] [place] CO2 [Moles/Vol] 31 mmol/L High 22-30 [facility] Comment on above: Order Comment: Speci men Type: BLOOD SPECIMENOrdering Facility: [facility] Address: [address] [place] [address] Performed By: #### 2 4323-8, 14644-5, 98685-1 ####[facility] LABIA [id number] [address] OF [facility] Creatinine [Mass/Vol] 1.24 mg/dL High 0.73-1.22 [facility] Comment on above: Order Comment: Speci men Type: BLOOD SPECIMENOrdering Facility: [facility] Address: [address] [place] [address] Performed By: #### 2 4323-8, 06034-5, 00515-4 ####[facility] LABIA [id number] [address] STATES OF [facility] ESTIMATED GLOMERULAR FILTRATION RATE 68 mL/min/1.73m??? Normal >=60 [facility] Comment on above: Order Comment: Speci men Type: BLOOD SPECIMENOrdering Facility: [facility] Address: [address] [place] [address] Result Comment: Laurita mated Glomerular Filtration Rate [...] actual GFR. Performed By: #### 2 4323-8, 03501-7, ####[facility] LABCLIA [id number] [address] [address] [place] Glucose [Mass/Vol] 176 mg/dL High 74-99 [facility] Comment on above: Order Comment: Aaliyah gibson Type: BLOOD SPECIMENOrdering Facility: [facility] Address: [address] [place] [address] Result Comment: The [place] Diabetes Association (ADA) provides guidance for cutoff [...] Standards of Medical Care in Diabetes 2016, [place] [employer]. Diabetes Care. 2016.39(Suppl 1). Performed By: #### 2 4323-8, 14010-1, ####[facility] LABCLIA [id number] [address] [address] [place] Potassium [Moles/Vol] 3.2 mmol/L Low 3.7-5.1 [facility] Comment on above: Order Comment: Aaliyah gibson Type: BLOOD SPECIMENOrdering Facility: [facility] Address: [address] [place] [address] Performed By: #### 2 4323-8, 76814-9, ####[facility] LABCLIA [id number] [facility] [address] [address] [place] Protein [Mass/Vol] 6.0 g/dL Low 6.3-8.0 [facility] Comment on above: Order Comment: Speci men Type: BLOOD SPECIMENOrdering Facility: [facility] Address: [address] [place], [place] [address] Performed By: #### 2 4323-8, 92320-3, ####[facility] LABCLIA [id number] [place] [address] [place] Sodium [Moles/Vol] 142 mmol/L Normal 136-144 [facility] Comment on above: Order Comment: Speci men Type: BLOOD SPECIMENOrdering Facility: [facility] Address: [address] [place], [place] [address] Performed By: #### 2 4323-8, 75449-4, ####[facility] LABCLIA [id number] [place] [address] [place] Urea nitrogen [Mass/Vol] 24 mg/dL Normal 9-24 [facility] Comment on above: Order Comment: Speci men Type: BLOOD SPECIMENOrdering Facility: [facility] Address: [address] [place], [place] [address] Performed By: #### 2 4323-8, 36745-5, ####[facility] LABCLIA [id number] [place] [address] [place] ECG COMPLETEon 09-23-2021 ECG COMPLETE Normal [facility] Lipid 1996 panelon 2 Cholesterol [Mass/Vol] 152 mg/dL Normal <200 [facility] Comment on above: Order Comment: Speci men Type: BLOOD SPECIMENOrdering Facility: [facility] Address: [address] [place] [address] Result Comment: <200 mg/dL, Desirable 200-239 mg/dL, Borderline high>239 mg/dL, High Performed By: #### 3 016-3, 92525-2, 99203-7, ####[facility] LABCLIA [id number] [address] Cholesterol in HDL [Mass/Vol] 55 mg/dL Normal >39 [facility] Comment on above: Order Comment: Speci men Type: BLOOD SPECIMENOrdering Facility: [facility] Address: [address] [place] [address] Result Comment: 40-5 9 mg/dL, Acceptable>59 mg/dL, High: Negative risk factor for coronary heart disease<40 mg/dL, Low: Positive risk factor for coronary heart disease Performed By: #### 3 016-3, 35008-7, 02730-0, ####[facility] LABCLIA [id number] [address] Cholesterol in LDL [Mass/Vol] 87 mg/dL Normal <100 [facility] Comment on above: Order Comment: Ronyi men Type: BLOOD SPECIMENOrdering Facility: [facility] Address: [address] [place] [address] Result Comment: <100 mg/dL, Optimal 100-129 mg/dL, Near optimal/above optimal 130-159 mg/dL, Borderline high 160-189 mg/dL, High>189 mg/dL, Very highSecondary prevention optimal LDL Cholesterol levels are recommended to be < 70 mg/dL Performed By: #### 3 016-3, 74142-9, 42126-0, ####[facility] LABIA [id number] [address] Cholesterol in LDL/Cholesterol in HDL [Mass ratio] 1.58 {ratio} Normal <2.54 [facility] Comment on above: Order Comment: Speci men Type: BLOOD SPECIMENOrdering Facility: [facility] Address: [address] [place] [address] Result Comment: Refe rence:1. National Cholesterol Education Program ATP III Guideline At-A-Glance Quick Desk Reference: National Heart, Lung, and Blood [place]. National Institutes of Health. 2001: NIH Publication No. 01-3305.2. An International Atherosclerosis Society position paper: global recommendations for the management of dyslipidemia: executive summary, Atherosclerosis. 2014: 232(2):410-413. Performed By: #### 3 016-3, 83011-7, 22130-6, ####[facility] LABCLIA [id number] [place] [address] [place] Cholesterol in VLDL [Mass/Vol] 10 mg/dL Normal <30 [facility] Comment on above: Order Comment: Speci men Type: BLOOD SPECIMENOrdering Facility: [facility] Address: [address] [place] [address] Performed By: #### 3 016-3, 04062-5, 56528-5, ####[facility] LABCLIA [id number] [place] [address] [place] Cholesterol non HDL [Mass/Vol] 97 mg/dL Normal <130 [facility] Comment on above: Order Comment: Speci men Type: BLOOD SPECIMENOrdering Facility: [facility] Address: [address] [place] [address] Result Comment: <130 mg/dL, Optimal 130-159 mg/dL, Near optimal/above optimal 160-189 mg/dL, Borderline high 190-219 mg/dL, High>219 mg/dL, Very highSecondary prevention optimal non HDL Cholesterol levels are recommended to be <100 mg/dL Performed By: #### 3 016-3, 36800-1, 96199-1, ####[facility] LABCLIA [id number] [place] [address] [place] Cholesterol.total/Urvashi sterol in HDL [Mass ratio] 2.76 {ratio} Normal <5.10 [facility] Comment on above: Order Comment: Speci men Type: BLOOD SPECIMENOrdering Facility: [facility] Address: [address] [address] Performed By: #### 3 016-3, 45572-4, 61459-0, ####[facility] LABCLIA [id number] [place] [id number] [place] FASTING TIME 9 hrs Normal [facility] Comment on above: Order Comment: Speci men Type: BLOOD SPECIMENOrdering Facility: [facility] Address: [address] [place] [address] Performed By: #### 3 016-3, 71801-6, 10172-0, ####[facility] LABCLIA [id number] [place] [id number] [place] Triglyceride [Mass/Vol] 51 mg/dL Normal <150 [facility] Comment on above: Order Comment: Speci men Type: BLOOD SPECIMENOrdering Facility: [facility] Address: [address] [place] [address] Result Comment: <150 mg/dL, Normal 150-199 mg/dL, Borderline high 200-499 mg/dL, High>499 mg/dL, Very high Performed By: #### 3 016-3, 74510-1, 26331-4, ####[facility] LABCLIA [id number] [place] [address] [place] Magnesium SerPl-mCncon 09-23 Magnesium [Mass/Vol] 2.0 mg/dL Normal 1.7-2.3 [facility] Comment on above: Order Comment: Speci men Type: BLOOD SPECIMENOrdering Facility: [facility] Address: [address] [place] [address] Performed By: #### 3 016-3, 75328-7, 75028-5, ####[facility] LABCLIA [id number] [place] [address] [place] Magnesium [Mass/Vol] 2.1 mg/dL Normal 1.7-2.3 [facility] Comment on above: Order Comment: Speci men Type: BLOOD SPECIMENOrdering Facility: [facility] Address: [address] [place], [place] [address] Performed By: #### 2 4323-8, 23731-2, 15647-9 ####[facility] LABCLIA [id number] [place] [address] [place] NT-[facility]BNP [facility] Natriuretic peptide.B prohormone N-Terminal [Mass/Vol] 1946 pg/mL High <125 [facility] Comment on above: Order Comment: Speci men Type: BLOOD SPECIMENOrdering Facility: [facility] Address: [address] [place], [place] [address] Performed By: #### 2 4323-8, 92994-3, ####[facility] LABIA [id number] [place] [address] [place] POTASSIUM BLDon 09-23-2021 Potassium [Moles/Vol] 3.4 mmol/L Low 3.7-5.1 [facility] Comment on above: Order Comment: Speci men Type: BLOOD SPECIMENOrdering Facility: [facility] Address: [address] [place], [place] [address] Performed By: #### K 1 ####[facility] LABIA [id number] [place] [address] [place] Potassium [Moles/Vol] 3.5 mmol/L Low 3.7-5.1 [facility] Comment on above: Order Comment: Speci men Type: BLOOD SPECIMENOrdering Facility: [facility] Address: [address] [place], [place] [address] Performed By: #### K 1 ####[facility] LABIA [id number] [place] [address] [place] PT panel Coag (PPP)on 2021 INR Coag (PPP) [Relative time] 1.2 {INR} Normal 0.9-1.3 [facility] Comment on above: Order Comment: Speci men Type: BLOOD SPECIMENOrdering Facility: [facility] Address: [address] [phone] Result Comment: Constanza min K Antagonist (VKA) Therapeutic Range: INR 2 to 3 (Target INR of 2.5)Note: For patients treated with VKA drugs, such as warfarin, the [place] [employer] 2012 Guideline recommends [...] al. Chest 2012, 141:7S-47SNishnini RA, et al. [facility] 2017, 70: 252-289 Performed By: #### P TTA, 18675-6 ####[facility] [id number] [place] [address] [place] PT Coag (PPP) [Time] 12.3 s Normal 9.7-13.0 [facility] Comment on above: Order Comment: Aaliyah gibson Type: BLOOD SPECIMENOrdering Facility: [facility] Address: [address] [phone] Performed By: #### P TTA, 11528-2 ####[facility] [id number] [place] [address] [place] INR Coag (PPP) [Relative time] 1.1 {INR} Normal 0.9-1.3 [facility] Comment on above: Order Comment: Aaliyah gibson Type: BLOOD SPECIMENOrdering Facility: [facility] Address: [address] [phone] Result Comment: Constanza min K Antagonist (VKA) Therapeutic Range: INR 2 to 3 (Target INR of 2.5)Note: For patients treated with VKA drugs, such as warfarin, the [place] [employer] 2012 Guideline recommends [...] al. Chest 2012, 141:7S-47SNishimura RA, et al. [facility] 2017, 70: 252-289 Performed By: #### 3 4528-0, 91897-2 ####[facility] LABIA [id number] [place] [address] [place] PT Coag (PPP) [Time] 11.9 s Normal 9.7-13.0 [facility] Comment on above: Order Comment: Speci men Type: BLOOD SPECIMENOrdering Facility: [facility] Address: [address] [place] [address] Performed By: #### 3 4528-0, 23268-9 ####[facility] LABIA [id number] [place] [address] [place] PTT, ANTICOAGULANT THERAPYon 09-23-2021 aPTT Coag (PPP) [Time] s High 23.0-32.4 [facility] Comment on above: Order Comment: Speci men Type: BLOOD SPECIMENOrdering Facility: [facility] Address: [address] [place] [address] Result Comment: Sammagdaleno ennis checked for clot.Result rechecked. Performed By: #### P TTAC ####[facility] LABIA [id number] [place] [address] aPTT Coag (PPP) [Time] s High 23.0-32.4 [facility] Comment on above: Order Comment: Speci men Type: BLOOD SPECIMENOrdering Facility: [facility] Address: [address] [place] [address] Result Comment: Samp le checked for clot.Result rechecked. Performed By: #### P TTAC ####[facility] LABIA [id number] [address] aPTT Coag (PPP) [Time] 73.9 s High 23.0-32.4 [facility] Comment on above: Order Comment: Speci men Type: BLOOD SPECIMENOrdering Facility: [facility] Address: [address] [place] [address] Performed By: #### P TTAC, 30221-5 ####[facility] [id number] [address] [place] SARS-CoV-2 RNA Resp Ql SANDOVAL+p robeon 09-23-2021 SARS-CoV-2 (COVID-19) RNA SANDOVAL+probe Ql (Resp) COVID 19 RESULT: SARS-CoV-2 (Agent of COVID-19) Not Detected by RT-PCR or equivalent method. This test has been authorized by FDA under an Emergency Use Authorization (EUA). Normal [facility] Comment on above: Performed By: #### 9 4500-6 ####[facility] [id number] [address] [place] TSH SerPl-aCncon 09-23-2021 TSH Qn 1.870 m[IU]/L Normal 0.270-4.20 0 [facility] Comment on above: Order Comment: Speci men Type: BLOOD SPECIMENOrdering Facility: [facility] Address: [address] [place] [address] Performed By: #### 3 016-3, 00400-5, 96875-2, 29682-6 ####[facility] [id number] [place] [address] [place] aPTT PPPon 09-23-2021 aPTT Coag (PPP) [Time] 25.4 s Normal 23.0-32.4 [facility] Comment on above: Order Comment: Speci men Type: BLOOD SPECIMENOrdering Facility: [facility] Address: [address] [place] [address] Performed By: #### 3 4528-0, 58977-6 ####[facility] [id number] [address] [place] CNOVon 09-22-2021 CNOV Normal [facility] HISTORY PHYSICALon HISTORY PHYSICAL Normal [facility] NURSING PROGon 09-22-2021 NURSING PROG Normal [facility] XR CHEST 1V FRONTAL PORTon 0 09-22-2021 XR CHEST 1V FRONTAL PORT Normal [facility] CNPNon 09-19-2021 CNPN Normal [facility] CNPNon 09-16-2021 CNPN Normal [facility] CBC W Auto Differential pane l (Bld)on 09-11-2021 Basophils (Bld) [#/Vol] 10*3/uL Normal <0.11 C [facility] Comment on above: Order Comment: Speci men Type: BLOOD SPECIMENOrdering Facility: [facility] Address: [address] [place] [address] Performed By: #### 5 7021-8 ####[facility] [id number] [address] STATES OF [facility] Basophils/100 WBC (Bld) 0.3 % Normal C [facility] Comment on above: Order Comment: Speci men Type: BLOOD SPECIMENOrdering Facility: [facility] Address: [address] [place] [address] Performed By: #### 5 7021-8 ####[facility] [id number] [place] Differential cell count method Nom (Bld) Auto Normal [facility] Comment on above: Order Comment: Speci men Type: BLOOD SPECIMENOrdering Facility: [facility] Address: [address] [place] [address] Performed By: #### 5 7021-8 ####[facility] [id number] [place] [address] [place] Eosinophils (Bld) [#/Vol] 0.03 10*3/uL Normal <0.46 [facility] Comment on above: Order Comment: Speci men Type: BLOOD SPECIMENOrdering Facility: [facility] Address: [address] [place] [address] Performed By: #### 5 7021-8 ####[facility] [place] [id number] [place] [address] [place] OF [facility] Eosinophils/100 WBC (Bld) 0.5 % Normal [facility] Comment on above: Order Comment: Speci men Type: BLOOD SPECIMENOrdering Facility: [facility] Address: [address] [place] [address] Performed By: #### 5 7021-8 ####[facility] [id number] [place] [address] [place] Erythrocyte distribution width (RBC) [Ratio] 15.5 % High 11.5-15.0 [facility] Comment on above: Order Comment: Speci men Type: BLOOD SPECIMENOrdering Facility: [facility] Address: [address] [place] [address] Performed By: #### 5 7021-8 ####[facility] [id number] [place] [address] [place] Hematocrit (Bld) [Volume fraction] 42.0 % Normal 39.0-51.0 [facility] Comment on above: Order Comment: Speci men Type: BLOOD SPECIMENOrdering Facility: [facility] Address: [address] [place] [address] Performed By: #### 5 7021-8 ####[facility] [place] [id number] [place] [address] [facility] Hemoglobin (Bld) [Mass/Vol] 13.5 g/dL Normal 13.0-17.0 [facility] Comment on above: Order Comment: Speci men Type: BLOOD SPECIMENOrdering Facility: [facility] Address: [address] [place] [address] Performed By: #### 5 7021-8 ####[facility] [id number] [place] [address] IMMATURE GRAN % 0.3 % Normal [facility] Comment on above: Order Comment: Speci men Type: BLOOD SPECIMENOrdering Facility: [facility] Address: [address] [place] [address] Performed By: #### 5 7021-8 ####[facility] [id number] [place] [address] IMMATURE GRAN ABS <0.03 Normal <0.10 [facility] Comment on above: Order Comment: Speci men Type: BLOOD SPECIMENOrdering Facility: [facility] Address: [address] [place], [place] [address] Performed By: #### 5 7021-8 ####[facility] [place] [id number] [place] [address] [place] Lymphocytes (Bld) [#/Vol] 1.12 10*3/uL Normal 1.00-4.00 [facility] Comment on above: Order Comment: Speci men Type: BLOOD SPECIMENOrdering Facility: [facility] Address: [address] [place], [place] [address] Performed By: #### 5 7021-8 ####[facility] [id number] [place] [address] [place] Lymphocytes/100 WBC (Bld) 17.2 % Normal [facility] Comment on above: Order Comment: Speci men Type: BLOOD SPECIMENOrdering Facility: [facility] Address: [address] [place] [address] Performed By: #### 5 7021-8 ####[facility] [id number] [place] [address] [place] MCH (RBC) [Entitic mass] 29.6 pg Normal 26.0-34.0 [facility] Comment on above: Order Comment: Speci men Type: BLOOD SPECIMENOrdering Facility: [facility] Address: [address] [place] [address] Performed By: #### 5 7021-8 ####[facility] [id number] [place] [address] [place] MCHC (RBC) [Mass/Vol] 32.1 g/dL Normal 30.5-36.0 [facility] Comment on above: Order Comment: Speci men Type: BLOOD SPECIMENOrdering Facility: [facility] Address: [address] [place] [address] Performed By: #### 5 7021-8 ####[facility] [id number] [address] STATES OF [facility] MCV (RBC) [Entitic vol] 92.1 fL Normal 80.0-100.0 C [facility] Comment on above: Order Comment: Speci men Type: BLOOD SPECIMENOrdering Facility: [facility] Address: [address] [place] [address] Performed By: #### 5 7021-8 ####[facility] [id number] [place] [address] [place] Monocytes (Bld) [#/Vol] 0.53 10*3/uL Normal <0.87 [facility] Comment on above: Order Comment: Speci men Type: BLOOD SPECIMENOrdering Facility: [facility] Address: [address] [place], [place] [address] Performed By: #### 5 7021-8 ####[facility] [id number] [place] [address] [place] Monocytes/100 WBC (Bld) 8.1 % Normal [facility] Comment on above: Order Comment: Speci men Type: BLOOD SPECIMENOrdering Facility: [facility] Address: [address] [place], [place] [address] Performed By: #### 5 7021-8 ####[facility] [place] [id number] [place] [address] [place] Neutrophils (Bld) [#/Vol] 4.81 10*3/uL Normal 1.45-7.50 [facility] Comment on above: Order Comment: Speci men Type: BLOOD SPECIMENOrdering Facility: [facility] Address: [address] [place], [place] [address] Performed By: #### 5 7021-8 ####[facility] [id number] [place] [address] [place] Neutrophils/100 WBC (Bld) 73.6 % Normal [facility] Comment on above: Order Comment: Speci men Type: BLOOD SPECIMENOrdering Facility: [facility] Address: [address] [place], [place] [address] Performed By: #### 5 7021-8 ####[facility] [id number] [place] [address] [place] Nucleated RBC (Bld) [#/Vol] 10*3/uL Normal <0.01 [facility] Comment on above: Order Comment: Speci men Type: BLOOD SPECIMENOrdering Facility: [facility] Address: [address] [place], [place] [address] Performed By: #### 5 7021-8 ####[facility] [id number] [place] [address] [place] Nucleated RBC/100 WBC (Bld) [Ratio] 0.0 /100 WBC Normal [facility] Comment on above: Order Comment: Speci men Type: BLOOD SPECIMENOrdering Facility: [facility] Address: [address] [place], [place] [address] Performed By: #### 5 7021-8 ####[facility] [id number] [place] [address] [place] Platelet mean volume (Bld) [Entitic vol] 9.7 fL Normal 9.0-12.7 [facility] Comment on above: Order Comment: Speci men Type: BLOOD SPECIMENOrdering Facility: [facility] Address: [address] [place], [place] [address] Performed By: #### 5 7021-8 ####[facility] [id number] [place] [address] [place] Platelets (Bld) [#/Vol] 267 10*3/uL Normal 150-400 [facility] Comment on above: Order Comment: Speci men Type: BLOOD SPECIMENOrdering Facility: [facility] Address: [address] [place], [place] [address] Performed By: #### 5 7021-8 ####[facility] [id number] [place] [address] [place] RBC (Bld) [#/Vol] 4.56 10*6/uL Normal 4.20-6.00 [facility] Comment on above: Order Comment: Speci men Type: BLOOD SPECIMENOrdering Facility: [facility] Address: [address] [place], [place] [address] Performed By: #### 5 7021-8 ####[facility] [place] [id number] [place] [address] [place] WBC (Bld) [#/Vol] 6.53 10*3/uL Normal 3.70-11.00 [facility] Comment on above: Order Comment: Speci men Type: BLOOD SPECIMENOrdering Facility: [facility] Address: [address] [place] [address] Performed By: #### 5 7021-8 ####[facility] [place] [id number] [place] [address] [place] CNNURSEon 09-11-2021 CNNURSE Normal [facility] CNOVSPon 09-11-2021 CNOVSP Normal [facility] Comprehensive metabolic 2000 panelon 09-11-2021 Albumin [Mass/Vol] 4.1 g/dL Normal 3.9-4.9 [facility] Comment on above: Order Comment: Speci men Type: BLOOD SPECIMENOrdering Facility: [facility] Address: [address] [place] [address] Performed By: #### 3 084-1, 11329-6, 32243-4 ####[facility] [place] [id number] [place] [address] ALP [Catalytic activity/Vol] 80 U/L Normal 38-113 [facility] Comment on above: Order Comment: Speci men Type: BLOOD SPECIMENOrdering Facility: [facility] Address: [address] [place], [place] [address] Performed By: #### 3 084-1, 89044-0, 13973-8 ####[facility] [id number] [place] [address] OF [place] ALT [Catalytic activity/Vol] 82 U/L High 10-54 [facility] Comment on above: Order Comment: Speci men Type: BLOOD SPECIMENOrdering Facility: [facility] Address: [address] [place], [place] [address] Performed By: #### 3 084-1, 64307-0, ####[facility] [id number] [place] [address] [place] Anion gap [Moles/Vol] 12 mmol/L Normal 9-18 [facility] Comment on above: Order Comment: Speci men Type: BLOOD SPECIMENOrdering Facility: [facility] Address: [address] [place] [address] Performed By: #### 3 084-1, 08952-9, ####[facility] [id number] [place] [address] [place] AST [Catalytic activity/Vol] 58 U/L High 14-40 [facility] Comment on above: Order Comment: Speci men Type: BLOOD SPECIMENOrdering Facility: [facility] Address: [address] [place], [place] [address] Performed By: #### 3 084-1, 61887-0, ####[facility] [id number] [place] [address] [place] Bilirubin [Mass/Vol] 0.5 mg/dL Normal 0.2-1.3 [facility] Comment on above: Order Comment: Speci men Type: BLOOD SPECIMENOrdering Facility: [facility] Address: [address] [place] [address] Performed By: #### 3 084-1, 63204-9, ####[facility] [id number] [place] [address] [place] Calcium [Mass/Vol] 9.4 mg/dL Normal 8.5-10.2 [facility] Comment on above: Order Comment: Speci men Type: BLOOD SPECIMENOrdering Facility: [facility] Address: [address] [place] [address] Performed By: #### 3 084-1, 93299-1, ####[facility] [id number] [place] [address] [place] Chloride [Moles/Vol] 103 mmol/L Normal 97-105 [facility] Comment on above: Order Comment: Speci men Type: BLOOD SPECIMENOrdering Facility: [facility] Address: [address] [place], [place] [address] Performed By: #### 3 084-1, 94944-0, ####[facility] [id number] [place] [address] [place] CO2 [Moles/Vol] 29 mmol/L Normal 22-30 [facility] Comment on above: Order Comment: Speci men Type: BLOOD SPECIMENOrdering Facility: [facility] Address: [address] [place] [address] Performed By: #### 3 084-1, 09021-1, ####[facility] [id number] [place] [address] [place] Creatinine [Mass/Vol] 1.18 mg/dL Normal 0.73-1.22 [facility] Comment on above: Order Comment: Speci men Type: BLOOD SPECIMENOrdering Facility: [facility] Address: [address] [place] [address] Performed By: #### 3 084-1, , ####[facility] [id number] [place] [address] [place] ESTIMATED GLOMERULAR FILTRATION RATE 72 mL/min/1.73m??? Normal >=60 [facility] Comment on above: Order Comment: Speci men Type: BLOOD SPECIMENOrdering Facility: [facility] Address: [address] [place], [place] [address] Result Comment: Laurita mated Glomerular Filtration Rate [...] actual GFR. Performed By: #### 3 084-1, 01528-8, ####[facility] [id number] [place] [address] [place] Glucose [Mass/Vol] 130 mg/dL High 74-99 [facility] Comment on above: Order Comment: Aaliyah gibson Type: BLOOD SPECIMENOrdering Facility: [facility] Address: [address] [address] Result Comment: The [place] [employer] (ADA) provides guidance for cutoff [...] Standards of Medical Care in Diabetes 2016, [place] [employer]. Diabetes Care. 2016.39(Suppl 1). Performed By: #### 3 084-1, , ####[facility] [id number] [place] [address] [place] Potassium [Moles/Vol] 3.3 mmol/L Low 3.7-5.1 [facility] Comment on above: Order Comment: Aaliyah gibson Type: BLOOD SPECIMENOrdering Facility: [facility] Address: [address] [phone] Performed By: #### 3 084-1, 39046-8, ####[facility] [id number] [place] [address] [place] Protein [Mass/Vol] 6.9 g/dL Normal 6.3-8.0 [facility] Comment on above: Order Comment: Speci men Type: BLOOD SPECIMENOrdering Facility: [facility] Address: [address] [place], [place] [address] Performed By: #### 3 084-1, 44090-4, ####[facility] [id number] [place] [address] [place] Sodium [Moles/Vol] 144 mmol/L Normal 136-144 [facility] Comment on above: Order Comment: Speci men Type: BLOOD SPECIMENOrdering Facility: [facility] Address: [address] [place] [address] Performed By: #### 3 084-1, 51712-7, ####[facility] [id number] [place] [address] [place] Urea nitrogen [Mass/Vol] 19 mg/dL Normal 9-24 [facility] Comment on above: Order Comment: Speci men Type: BLOOD SPECIMENOrdering Facility: [facility] Address: [address] [place] [address] Performed By: #### 3 084-1, 96687-4, ####[facility] [id number] [place] [address] [place] LDH SerPl-cCncon 09-11-2021 LDH [Catalytic activity/Vol] 297 U/L High 135-225 [facility] Comment on above: Order Comment: Speci men Type: BLOOD SPECIMENOrdering Facility: [facility] Address: [address] [place], [place] [address] Performed By: #### 2 532-0 ####[facility] [id number] [place] [id number] Magnesium Geronimol-mCayannaon 09-11 Magnesium [Mass/Vol] 2.1 mg/dL Normal 1.7-2.3 [facility] Comment on above: Order Comment: Aaliyah gibson Type: BLOOD SPECIMENOrdering Facility: [facility] Address: [address] [place] [address] Performed By: #### 3 084-1, 26690-8, 04220-0 ####[facility] [id number] [address] STATES OF [place] PT panel Coag (PPP)on 2021 INR Coag (PPP) [Relative time] 1.1 {INR} Normal 0.9-1.3 [facility] Comment on above: Order Comment: Aaliyah gibson Type: BLOOD SPECIMENOrdering Facility: [facility] Address: [address] [place] [address] Result Comment: Constanza min K Antagonist (VKA) Therapeutic Range: INR 2 to 3 (Target INR of 2.5)Note: For patients treated with VKA drugs, such as warfarin, the [place] [employer] 2012 Guideline recommends [...] 70: 252-289 Performed By: #### 3 4528-0, 46745-9 ####[facility] [id number] [address] [place] PT Coag (PPP) [Time] 11.3 s Normal 9.7-13.0 [facility] Comment on above: Order Comment: Speci men Type: BLOOD SPECIMENOrdering Facility: [facility] Address: [address] [place] [address] Performed By: #### 3 4528-0, 37413-4 ####[facility] [id number] [place] [address] [place] Phosphate SerPl-mCncon 09-11 Phosphate [Mass/Vol] 3.5 mg/dL Normal 2.7-4.8 [facility] Comment on above: Order Comment: Speci men Type: BLOOD SPECIMENOrdering Facility: [facility] Address: [address] [place] [address] Performed By: #### 2 777-1 ####[facility] [place] [id number] [place] [address] [place] Urate SerPl-mCncon Urate [Mass/Vol] 9.2 mg/dL High 4.0-8.1 [facility] Comment on above: Order Comment: Speci men Type: BLOOD SPECIMENOrdering Facility: [facility] Address: [address] [place] [address] Performed By: #### 3 084-1, 60864-3, 16591-7 ####[facility] [place] [id number] [address] STATES OF [place] aPTT PPPon 09-11-2021 aPTT Coag (PPP) [Time] 28.1 s Normal 23.0-32.4 [facility] Comment on above: Order Comment: Speci men Type: BLOOD SPECIMENOrdering Facility: [facility] Address: [address] [place] [address] Performed By: #### 3 4528-0, 51079-4 ####[facility] [id number] [address] STATES OF [place] CNPNon 09-05-2021 CNPN Normal [facility] CBC panel Auto (Bld)on 09-04 Erythrocyte distribution width (RBC) [Ratio] 15.2 % High 11.5-15.0 [facility] Comment on above: Order Comment: Speci men Type: BLOOD SPECIMENOrdering Facility: [facility] Address: [address] [place], [place] [address] Performed By: #### 5 8410-2 ####[facility] LABIA [id number] [address] [place] Hematocrit (Bld) [Volume fraction] 40.7 % Normal 39.0-51.0 [facility] Comment on above: Order Comment: Speci men Type: BLOOD SPECIMENOrdering Facility: [facility] Address: [address] [place] [address] Performed By: #### 5 8410-2 ####[facility] [id number] [address] [place] Hemoglobin (Bld) [Mass/Vol] 13.1 g/dL Normal 13.0-17.0 [facility] Comment on above: Order Comment: Speci men Type: BLOOD SPECIMENOrdering Facility: [facility] Address: [address] [place], [place] [address] Performed By: #### 5 8410-2 ####[facility] [id number] [address] [place] MCH (RBC) [Entitic mass] 29.5 pg Normal 26.0-34.0 [facility] Comment on above: Order Comment: Speci men Type: BLOOD SPECIMENOrdering Facility: [facility] Address: [address] [place], [place] [address] Performed By: #### 5 8410-2 ####[facility] [id number] [address] OF [place] MCHC (RBC) [Mass/Vol] 32.2 g/dL Normal 30.5-36.0 [facility] Comment on above: Order Comment: Speci men Type: BLOOD SPECIMENOrdering Facility: [facility] Address: [address] [place], [place] [address] Performed By: #### 5 8410-2 ####[facility]IA [id number] [place] [address] [place] MCV (RBC) [Entitic vol] 91.7 fL Normal 80.0-100.0 [facility] Comment on above: Order Comment: Speci men Type: BLOOD SPECIMENOrdering Facility: [facility] Address: [address] [place], [place] [address] Performed By: #### 5 8410-2 ####[facility] [id number] [address] STATES [place] Nucleated RBC (Bld) [#/Vol] 10*3/uL Normal <0.01 [facility] Comment on above: Order Comment: Speci men Type: BLOOD SPECIMENOrdering Facility: [facility] Address: [address] [place], [place] [address] Performed By: #### 5 8410-2 ####[facility] [id number] [place] [address] [place] Platelet mean volume (Bld) [Entitic vol] 10.1 fL Normal 9.0-12.7 [facility] Comment on above: Order Comment: Speci men Type: BLOOD SPECIMENOrdering Facility: [facility] Address: [address] [place], [place] [address] Performed By: #### 5 8410-2 ####[facility] LABCLIA [id number] [place] [address] [place] Platelets (Bld) [#/Vol] 214 10*3/uL Normal 150-400 [facility] Comment on above: Order Comment: Speci men Type: BLOOD SPECIMENOrdering Facility: [facility] Address: [address] [place], [place] [address] Performed By: #### 5 8410-2 ####[facility] LABCLIA [id number] [place] [address] [place] RBC (Bld) [#/Vol] 4.44 10*6/uL Normal 4.20-6.00 [facility] Comment on above: Order Comment: Speci men Type: BLOOD SPECIMENOrdering Facility: [facility] Address: [address] [place], [place] [address] Performed By: #### 5 8410-2 ####[facility] LABCLIA [id number] [place] [address] [place] WBC (Bld) [#/Vol] 6.02 10*3/uL Normal 3.70-11.00 [facility] Comment on above: Order Comment: Speci men Type: BLOOD SPECIMENOrdering Facility: [facility] Address: [address] [place], [place] [address] Performed By: #### 5 8410-2 ####[facility] LABCLIA [id number] [place] [address] [place] CNDSon 09-04-2021 CNDS Normal [facility] CONSULTon 09-04-2021 CONSULT Normal [facility] Comprehensive metabolic 2000 panelon 09-04-2021 Albumin [Mass/Vol] 3.5 g/dL Low 3.9-4.9 [facility] Comment on above: Order Comment: Speci men Type: BLOOD SPECIMENOrdering Facility: [facility] Address: [address] [place] [address] Performed By: #### 2 4323-8, 09418-8 ####[facility] LABCLIA [id number] [place] [address] [place] ALP [Catalytic activity/Vol] 72 U/L Normal 38-113 [facility] Comment on above: Order Comment: Speci men Type: BLOOD SPECIMENOrdering Facility: [facility] Address: [address] [place] [address] Performed By: #### 2 4323-8, ####[facility] LABCLIA [id number] [place] [address] [place] ALT [Catalytic activity/Vol] 56 U/L High 10-54 [facility] Comment on above: Order Comment: Speci men Type: BLOOD SPECIMENOrdering Facility: [facility] Address: [address] [place], [place] [address] Performed By: #### 2 432-8, ####[facility] LABCLIA [id number] [place] [address] [place] Anion gap [Moles/Vol] 10 mmol/L Normal 9-18 [facility] Comment on above: Order Comment: Speci men Type: BLOOD SPECIMENOrdering Facility: [facility] Address: [address] [place], [place] [address] Performed By: #### 2 4323-8, ####[facility] LABCLIA [id number] [place] [address] [place] AST [Catalytic activity/Vol] 25 U/L Normal 14-40 [facility] Comment on above: Order Comment: Speci men Type: BLOOD SPECIMENOrdering Facility: [facility] Address: [address] [place], [place] [address] Performed By: #### 2 4323-8, ####[facility] LABCLIA [id number] [place] [address] [place] Bilirubin [Mass/Vol] 0.6 mg/dL Normal 0.2-1.3 [facility] Comment on above: Order Comment: Speci men Type: BLOOD SPECIMENOrdering Facility: [facility] Address: [address] [id number] Performed By: #### 2 4323-8, ####[facility] LABCLIA [id number] [place] [address] [place] Calcium [Mass/Vol] 9.3 mg/dL Normal 8.5-10.2 [facility] Comment on above: Order Comment: Speci men Type: BLOOD SPECIMENOrdering Facility: [facility] Address: [address] [place], [place] [phone] Performed By: #### 2 432-8, ####[facility] LABCLIA [id number] [place] [address] [place] Chloride [Moles/Vol] 99 mmol/L Normal 97-105 [facility] Comment on above: Order Comment: Speci men Type: BLOOD SPECIMENOrdering Facility: [facility] Address: [address] [place], [place] [address] Performed By: #### 2 432-8, ####[facility] LABCLIA [id number] [place] [address] [place] CO2 [Moles/Vol] 30 mmol/L Normal 22-30 [facility] Comment on above: Order Comment: Speci men Type: BLOOD SPECIMENOrdering Facility: [facility] Address: [address] [place] [address] Performed By: #### 2 4323-8, ####[facility] LABCLIA [id number] [place] [id number] [place] Creatinine [Mass/Vol] 1.03 mg/dL Normal 0.73-1.22 [facility] Comment on above: Order Comment: Speci men Type: BLOOD SPECIMENOrdering Facility: [facility] Address: [address] [place] [address] Performed By: #### 2 8, ####[facility] LABIA [id number] [place] [address] [place] [facility] ESTIMATED GLOMERULAR FILTRATION RATE 85 mL/min/1.73m??? Normal >=60 [facility] Comment on above: Order Comment: Aaliyah gibson Type: BLOOD SPECIMENOrdering Facility: [facility] Address: [address] [place] [address] Result Comment: Laurita mated Glomerular Filtration Rate [...] reflect actual GFR. Performed By: #### 2 [id number], ####[facility] [id number] [address] [place] Glucose [Mass/Vol] 192 mg/dL High 74-99 [facility] Comment on above: Order Comment: Aaliyah gibson Type: BLOOD SPECIMENOrdering Facility: [facility] Address: [address] [place] [address] Result Comment: The [place] [employer] (ADA) provides guidance for cutoff [...] Standards of Medical Care in Diabetes 2016, [place] [employer]. Diabetes Care. 2016.39(Suppl 1). Performed By: #### 2 4323-8, ####[facility] LABCLIA [id number] [place] [address] [place] Potassium [Moles/Vol] 3.2 mmol/L Low 3.7-5.1 [facility] Comment on above: Order Comment: Speci men Type: BLOOD SPECIMENOrdering Facility: [facility] Address: [address] [place] [address] Performed By: #### 2 4323-8, ####[facility] LABCLIA [id number] [place] [address] [place] Protein [Mass/Vol] 6.6 g/dL Normal 6.3-8.0 [facility] Comment on above: Order Comment: Speci men Type: BLOOD SPECIMENOrdering Facility: [facility] Address: [address] [place] [address] Performed By: #### 2 4328, ####[facility] LABCLIA [id number] [place] [address] [place] Sodium [Moles/Vol] 139 mmol/L Normal 136-144 [facility] Comment on above: Order Comment: Speci men Type: BLOOD SPECIMENOrdering Facility: [facility] Address: [address] [place] [address] Performed By: #### 2 4328, ####[facility] LABCLIA [id number] [place] [address] [place] Urea nitrogen [Mass/Vol] 15 mg/dL Normal 9-24 [facility] Comment on above: Order Comment: Speci men Type: BLOOD SPECIMENOrdering Facility: [facility] Address: [address] [place], [place] [address] Performed By: #### 2 432-8, ####[facility] LABCLIA [id number] [place] [id number] [place] Magnesium SerPl-mCncon 09-04 Magnesium [Mass/Vol] 2.2 mg/dL Normal 1.7-2.3 [facility] Comment on above: Order Comment: Speci men Type: BLOOD SPECIMENOrdering Facility: [facility] Address: [address] [place] [address] Performed By: #### 2 4323-8, 27598-5 ####[facility] LABCLIA [id number] [facility] [place] [address] [place] PT EDon 09-04-2021 PT ED Normal [facility] CASE MANAGEMon 09-03-2021 CASE MANAGEM Normal [facility] CBC panel Auto (Bld)on 09-03 Erythrocyte distribution width (RBC) [Ratio] 15.4 % High 11.5-15.0 [facility] Comment on above: Order Comment: Speci men Type: BLOOD SPECIMENOrdering Facility: [facility] Address: [address] [place] [address] Performed By: #### 5 8410-2 ####[facility] LABCLIA [id number] [place] [address] [place] Hematocrit (Bld) [Volume fraction] 43.8 % Normal 39.0-51.0 [facility] Comment on above: Order Comment: Speci men Type: BLOOD SPECIMENOrdering Facility: [facility] Address: [address] [place], [place] [address] Performed By: #### 5 8410-2 ####[facility] LABCLIA [id number] [facility] [place] [address] [place] Hemoglobin (Bld) [Mass/Vol] 13.9 g/dL Normal 13.0-17.0 [facility] Comment on above: Order Comment: Speci men Type: BLOOD SPECIMENOrdering Facility: [facility] Address: [address] [place] [address] Performed By: #### 5 8410-2 ####[facility] LABCLIA [id number] [address] [place] [facility] MCH (RBC) [Entitic mass] 29.6 pg Normal 26.0-34.0 [facility] Comment on above: Order Comment: Speci men Type: BLOOD SPECIMENOrdering Facility: [facility] Address: [address] [place] [address] Performed By: #### 5 8410-2 ####[facility] LABIA [id number] [address] MCHC (RBC) [Mass/Vol] 31.7 g/dL Normal 30.5-36.0 [facility] Comment on above: Order Comment: Speci men Type: BLOOD SPECIMENOrdering Facility: [facility] Address: [address] [place] [address] Performed By: #### 5 8410-2 ####[facility] LABIA [id number] [address] MCV (RBC) [Entitic vol] 93.2 fL Normal 80.0-100.0 [facility] Comment on above: Order Comment: Speci men Type: BLOOD SPECIMENOrdering Facility: [facility] Address: [address] [place] [address] Performed By: #### 5 8410-2 ####[facility] LABIA [id number] [place] [address] [place] Nucleated RBC (Bld) [#/Vol] 10*3/uL Normal <0.01 [facility] Comment on above: Order Comment: Speci men Type: BLOOD SPECIMENOrdering Facility: [facility] Address: [address] [place], [place] [address] Performed By: #### 5 8410-2 ####[facility] LABIA [id number] [place] [address] [place] Platelet mean volume (Bld) [Entitic vol] 9.9 fL Normal 9.0-12.7 [facility] Comment on above: Order Comment: Speci men Type: BLOOD SPECIMENOrdering Facility: [facility] Address: [address] [place], [place] [address] Performed By: #### 5 8410-2 ####[facility] LABCLIA [id number] [place] [address] [place] Platelets (Bld) [#/Vol] 212 10*3/uL Normal 150-400 [facility] Comment on above: Order Comment: Speci men Type: BLOOD SPECIMENOrdering Facility: [facility] Address: [address] [place], [place] [address] Performed By: #### 5 8410-2 ####[facility] LABIA [id number] [place] [address] [place] RBC (Bld) [#/Vol] 4.70 10*6/uL Normal 4.20-6.00 [facility] Comment on above: Order Comment: Speci men Type: BLOOD SPECIMENOrdering Facility: [facility] Address: [address] [place], [place] [address] Performed By: #### 5 8410-2 ####[facility] LABIA [id number] [place] [address] [place] WBC (Bld) [#/Vol] 5.51 10*3/uL Normal 3.70-11.00 [facility] Comment on above: Order Comment: Speci men Type: BLOOD SPECIMENOrdering Facility: [facility] Address: [address] [place], [place] [address] Performed By: #### 5 8410-2 ####[facility] LABCLIA [id number] [place] [address] [place] Comprehensive metabolic 2000 panelon 09-03-2021 Albumin [Mass/Vol] 3.7 g/dL Low 3.9-4.9 [facility] Comment on above: Order Comment: Speci men Type: BLOOD SPECIMENOrdering Facility: [facility] Address: [address] [place], [place] [address] Performed By: #### 2 4323-8, 83459-0, ####[facility] LABCLIA [id number] [place] [address] [place] ALP [Catalytic activity/Vol] 83 U/L Normal 38-113 [facility] Comment on above: Order Comment: Speci men Type: BLOOD SPECIMENOrdering Facility: [facility] Address: [address] [place] [address] Performed By: #### 2 4323-8, 35785-8, ####[facility] LABCLIA [id number] [place] [address] [place] ALT [Catalytic activity/Vol] 65 U/L High 10-54 [facility] Comment on above: Order Comment: Speci men Type: BLOOD SPECIMENOrdering Facility: [facility] Address: [address] [place] [address] Performed By: #### 2 4323-8, 53143-5, ####[facility] LABCLIA [id number] [place] [address] [place] Anion gap [Moles/Vol] 9 mmol/L Normal 9-18 [facility] Comment on above: Order Comment: Speci men Type: BLOOD SPECIMENOrdering Facility: [facility] Address: [address] [place], [place] [address] Performed By: #### 2 4323-8, 51353-6, ####[facility] LABCLIA [id number] [place] [address] [place] AST [Catalytic activity/Vol] 35 U/L Normal 14-40 [facility] Comment on above: Order Comment: Speci men Type: BLOOD SPECIMENOrdering Facility: [facility] Address: [address] [place] [address] Performed By: #### 2 4323-8, 77049-8, 83798-3 ####[facility] LABCLIA [id number] [place] [address] [place] Bilirubin [Mass/Vol] 0.6 mg/dL Normal 0.2-1.3 [facility] Comment on above: Order Comment: Speci men Type: BLOOD SPECIMENOrdering Facility: [facility] Address: [address] [place], [place] [address] Performed By: #### 2 4323-8, 86835-5, ####[facility] LABCLIA [id number] [place] [address] [place] Calcium [Mass/Vol] 9.3 mg/dL Normal 8.5-10.2 [facility] Comment on above: Order Comment: Speci men Type: BLOOD SPECIMENOrdering Facility: [facility] Address: [address] [place], [place] [address] Performed By: #### 2 4323-8, 01554-1, ####[facility] LABIA [id number] [place] [address] [place] Chloride [Moles/Vol] 102 mmol/L Normal 97-105 [facility] Comment on above: Order Comment: Speci men Type: BLOOD SPECIMENOrdering Facility: [facility] Address: [address] [place], [place] [address] Performed By: #### 2 4323-8, 89496-1, 03555-1 ####[facility] LABCLIA [id number] [place] [address] [place] CO2 [Moles/Vol] 32 mmol/L High 22-30 [facility] Comment on above: Order Comment: Speci men Type: BLOOD SPECIMENOrdering Facility: [facility] Address: [address] [place] [address] Performed By: #### 2 4323-8, 09457-9, 48002-5 ####[facility] LABIA [id number] [address] [address] [place] Creatinine [Mass/Vol] 1.08 mg/dL Normal 0.73-1.22 [facility] Comment on above: Order Comment: Aaliyah gibson Type: BLOOD SPECIMENOrdering Facility: [facility] Address: [address] [place], [place] [address] Performed By: #### 2 4323-8, 54696-8, ####[facility] [id number] [place] [address] [place] [facility] ESTIMATED GLOMERULAR FILTRATION RATE 80 mL/min/1.73m??? Normal >=60 [facility] Comment on above: Order Comment: Aaliyah gibson Type: BLOOD SPECIMENOrdering Facility: [facility] Address: [address] [place], [place] [address] Result Comment: Laurita mated Glomerular Filtration Rate [...] actual GFR. Performed By: #### 2 4323-8, 44732-7, 68489-8 ####[facility] LABIA [id number] [address] [address] [place] Glucose [Mass/Vol] 98 mg/dL Normal 74-99 [facility] Comment on above: Order Comment: Aaliyah gibson Type: BLOOD SPECIMENOrdering Facility: [facility] Address: [address] [place], [place] [address] Result Comment: The [place] [employer] (ADA) provides guidance for cutoff [...] Standards of Medical Care in Diabetes 2016, [place] [employer]. Diabetes Care. 2016.39(Suppl 1). Performed By: #### 2 4323-8, 30127-8, ####[facility] LABCLIA [id number] [place] [address] [place] Potassium [Moles/Vol] 3.8 mmol/L Normal 3.7-5.1 [facility] Comment on above: Order Comment: Speci men Type: BLOOD SPECIMENOrdering Facility: [facility] Address: [address] [place], [place] [address] Performed By: #### 2 4323-8, 57959-3, ####[facility] LABIA [id number] [place] [address] [place] Protein [Mass/Vol] 6.9 g/dL Normal 6.3-8.0 [facility] Comment on above: Order Comment: Speci men Type: BLOOD SPECIMENOrdering Facility: [facility] Address: [address] [place], [place] [address] Performed By: #### 2 4323-8, 60828-8, ####[facility] LABIA [id number] [place] [address] [place] Sodium [Moles/Vol] 143 mmol/L Normal 136-144 [facility] Comment on above: Order Comment: Speci men Type: BLOOD SPECIMENOrdering Facility: [facility] Address: [address] [place], [place] [address] Performed By: #### 2 4323-8, 29292-7, ####[facility] LABCLIA [id number] [address] [address] [place] Urea nitrogen [Mass/Vol] 16 mg/dL Normal 9-24 [facility] Comment on above: Order Comment: Speci men Type: BLOOD SPECIMENOrdering Facility: [facility] Address: [address] [place], [place] [address] Performed By: #### 2 4323-8, 09307-8, ####[facility] LABCLIA [id number] [address] [address] [place] ED NOTEon 09-03-2021 ED NOTE HNO ID: [id number] Author: Cinthya Gimenez RN Service: Emergency Medicine Author Type: Registered Nurse Type: ED Notes Filed: 09/02/2021 10:46 PM Note Text: Report given to [place] LOPEZ Normal [facility] Iron and Iron binding capaci ty panelon 09-03-2021 Iron [Mass/Vol] 42 ug/dL Normal 41-186 [facility] Comment on above: Order Comment: Speci men Type: BLOOD SPECIMENOrdering Facility: [facility] Address: [address] [place], [place] [address] Performed By: #### 2 4323-8, 68995-1, ####[facility] LABIA [id number] [place] [address] [place] Iron binding capacity [Mass/Vol] 261 ug/dL Normal 232-386 [facility] Comment on above: Order Comment: Speci men Type: BLOOD SPECIMENOrdering Facility: [facility] Address: [address] [place] [address] Performed By: #### 2 4323-8, 15670-8, ####[facility] LABCLIA [id number] [address] [address] [place] Iron/TIBC [Molar ratio] 16.1 % Normal 15.0-57.0 [facility] Comment on above: Order Comment: Speci men Type: BLOOD SPECIMENOrdering Facility: [facility] Address: [address] [place] [address] Performed By: #### 2 4323-8, 73994-8, 55256-8 ####[facility] [id number] [place] [address] [place] Magnesium SerPl-mCncon 09-03 Magnesium [Mass/Vol] 2.4 mg/dL High 1.7-2.3 [facility] Comment on above: Order Comment: Speci men Type: BLOOD SPECIMENOrdering Facility: [facility] Address: [address] [place] [address] Performed By: #### 2 4323-8, 33186-9, ####[facility] [id number] [place] [address] [place] THERAPY NTon 09-03-2021 THERAPY NT Normal [facility] THERAPY NT Normal [facility] CBC W Auto Differential pane l (Bld)on 09-02-2021 Basophils (Bld) [#/Vol] 0.03 10*3/uL Normal <0.11 [facility] Comment on above: Order Comment: Speci men Type: BLOOD SPECIMENOrdering Facility: [facility] Address: [address] [place], [place] [address] Performed By: #### 5 7021-8 ####[facility] [id number] [address] [place] Basophils/100 WBC (Bld) 0.5 % Normal C [facility] Comment on above: Order Comment: Speci men Type: BLOOD SPECIMENOrdering Facility: [facility] Address: [address] [place], [place] [address] Performed By: #### 5 7021-8 ####[facility] [id number] OF [facility] Differential cell count method Nom (Bld) Auto Normal [facility] Comment on above: Order Comment: Speci men Type: BLOOD SPECIMENOrdering Facility: [facility] Address: [address] [place] [address] Performed By: #### 5 7021-8 ####[facility] [id number] [place] [address] [place] Eosinophils (Bld) [#/Vol] 10*3/uL Normal <0.46 [facility] Comment on above: Order Comment: Speci men Type: BLOOD SPECIMENOrdering Facility: [facility] Address: [address] [place] [address] Performed By: #### 5 7021-8 ####[facility] [id number] [place] [address] OF [facility] Eosinophils/100 WBC (Bld) 0.3 % Normal [facility] Comment on above: Order Comment: Speci men Type: BLOOD SPECIMENOrdering Facility: [facility] Address: [address] [place], [place] [address] Performed By: #### 5 7021-8 ####[facility] [id number] [place] [address] [place] Erythrocyte distribution width (RBC) [Ratio] 15.2 % High 11.5-15.0 [facility] Comment on above: Order Comment: Speci men Type: BLOOD SPECIMENOrdering Facility: [facility] Address: [address] [place], [place] [address] Performed By: #### 5 7021-8 ####[facility] [id number] [place] [address] [place] Hematocrit (Bld) [Volume fraction] 40.8 % Normal 39.0-51.0 [facility] Comment on above: Order Comment: Speci men Type: BLOOD SPECIMENOrdering Facility: [facility] Address: [address] [place] [address] Performed By: #### 5 7021-8 ####[facility] [id number] [place] [address] OF [facility] Hemoglobin (Bld) [Mass/Vol] 13.5 g/dL Normal 13.0-17.0 [facility] Comment on above: Order Comment: Speci men Type: BLOOD SPECIMENOrdering Facility: [facility] Address: [address] [place] [address] Performed By: #### 5 7021-8 ####[facility] [id number] [place] [address] IMMATURE GRAN % 0.3 % Normal [facility] Comment on above: Order Comment: Speci men Type: BLOOD SPECIMENOrdering Facility: [facility] Address: [address] [place] [address] Performed By: #### 5 7021-8 ####[facility] [id number] [place] [address] [place] IMMATURE GRAN ABS <0.03 Normal <0.10 [facility] Comment on above: Order Comment: Speci men Type: BLOOD SPECIMENOrdering Facility: [facility] Address: [address] [place] [address] Performed By: #### 5 7021-8 ####[facility] [id number] [place] [address] [place] Lymphocytes (Bld) [#/Vol] 1.42 10*3/uL Normal 1.00-4.00 [facility] Comment on above: Order Comment: Speci men Type: BLOOD SPECIMENOrdering Facility: [facility] Address: [address] [place] [address] Performed By: #### 5 7021-8 ####[facility] [id number] [address] STATES [facility] Lymphocytes/100 WBC (Bld) 21.7 % Normal [facility] Comment on above: Order Comment: Speci men Type: BLOOD SPECIMENOrdering Facility: [facility] Address: [address] [place] [address] Performed By: #### 5 7021-8 ####[facility] [id number] [address] MCH (RBC) [Entitic mass] 29.8 pg Normal 26.0-34.0 [facility] Comment on above: Order Comment: Speci men Type: BLOOD SPECIMENOrdering Facility: [facility] Address: [address] [place] [address] Performed By: #### 5 7021-8 ####[facility] [id number] [address] [place] MCHC (RBC) [Mass/Vol] 33.1 g/dL Normal 30.5-36.0 [facility] Comment on above: Order Comment: Speci men Type: BLOOD SPECIMENOrdering Facility: [facility] Address: [address] [place], [place] [address] Performed By: #### 5 7021-8 ####[facility] [id number] [address] OF [facility] MCV (RBC) [Entitic vol] 90.1 fL Normal 80.0-100.0 C [facility] Comment on above: Order Comment: Speci men Type: BLOOD SPECIMENOrdering Facility: [facility] Address: [address] [place], [place] [address] Performed By: #### 5 7021-8 ####[facility] [id number] [address] OF [place] Monocytes (Bld) [#/Vol] 0.42 10*3/uL Normal <0.87 [facility] Comment on above: Order Comment: Speci men Type: BLOOD SPECIMENOrdering Facility: [facility] Address: [address] [place], [place] [address] Performed By: #### 5 7021-8 ####[facility] [id number] [place] [address] [place] Monocytes/100 WBC (Bld) 6.4 % Normal [facility] Comment on above: Order Comment: Speci men Type: BLOOD SPECIMENOrdering Facility: [facility] Address: [address] [place], [place] [address] Performed By: #### 5 7021-8 ####[facility] [id number] [place] [address] [place] Neutrophils (Bld) [#/Vol] 4.62 10*3/uL Normal 1.45-7.50 [facility] Comment on above: Order Comment: Speci men Type: BLOOD SPECIMENOrdering Facility: [facility] Address: [address] [place], [place] [address] Performed By: #### 5 7021-8 ####[facility] [id number] [place] [address] OF [facility] Neutrophils/100 WBC (Bld) 70.8 % Normal [facility] Comment on above: Order Comment: Speci men Type: BLOOD SPECIMENOrdering Facility: [facility] Address: [address] [place] [address] Performed By: #### 5 7021-8 ####[facility] [id number] [place] [address] [place] Nucleated RBC (Bld) [#/Vol] 10*3/uL Normal <0.01 [facility] Comment on above: Order Comment: Speci men Type: BLOOD SPECIMENOrdering Facility: [facility] Address: [address] [place], [place] [address] Performed By: #### 5 7021-8 ####[facility] [id number] [place] [address] [place] Nucleated RBC/100 WBC (Bld) [Ratio] 0.0 /100 WBC Normal [facility] Comment on above: Order Comment: Speci men Type: BLOOD SPECIMENOrdering Facility: [facility] Address: [address] [place] [address] Performed By: #### 5 7021-8 ####[facility] [id number] [place] [address] [place] Platelet mean volume (Bld) [Entitic vol] 9.8 fL Normal 9.0-12.7 [facility] Comment on above: Order Comment: Speci men Type: BLOOD SPECIMENOrdering Facility: [facility] Address: [address] [place] [address] Performed By: #### 5 7021-8 ####[facility] [id number] [place] [address] [place] Platelets (Bld) [#/Vol] 206 10*3/uL Normal 150-400 [facility] Comment on above: Order Comment: Speci men Type: BLOOD SPECIMENOrdering Facility: [facility] Address: [address] [place], [place] [address] Performed By: #### 5 7021-8 ####[facility] [id number] [place] [address] [place] RBC (Bld) [#/Vol] 4.53 10*6/uL Normal 4.20-6.00 [facility] Comment on above: Order Comment: Speci men Type: BLOOD SPECIMENOrdering Facility: [facility] Address: [address] [place], [place] [address] Performed By: #### 5 7021-8 ####[facility] [id number] [place] [address] [place] WBC (Bld) [#/Vol] 6.53 10*3/uL Normal 3.70-11.00 [facility] Comment on above: Order Comment: Speci men Type: BLOOD SPECIMENOrdering Facility: [facility] Address: [address] [place], [place] [id number] Performed By: #### 5 7021-8 ####[facility] [id number] [place] [address] [place] CNNURSEon 09-02-2021 CNNURSE Normal [facility] CNOVSPon 09-02-2021 CNOVSP Normal [facility] CT CHEST W IVCON PEon 2021 CT CHEST W IVCON PE Normal [facility] Comprehensive metabolic 2000 panelon 09-02-2021 Albumin [Mass/Vol] 4.1 g/dL Normal 3.9-4.9 [facility] Comment on above: Order Comment: Speci men Type: BLOOD SPECIMENOrdering Facility: [facility] Address: [address] [place], [place] [id number] Performed By: #### 2 4323-8 ####[facility] [id number] [place] [address] [place] ALP [Catalytic activity/Vol] 82 U/L Normal 38-113 [facility] Comment on above: Order Comment: Speci men Type: BLOOD SPECIMENOrdering Facility: [facility] Address: [address] [place], [place] [address] Performed By: #### 2 4323-8 ####[facility] [id number] [place] [address] [place] ALT [Catalytic activity/Vol] 79 U/L High 10-54 [facility] Comment on above: Order Comment: Speci men Type: BLOOD SPECIMENOrdering Facility: [facility] Address: [address] [place], [place] [address] Performed By: #### 2 4323-8 ####[facility] [id number] [place] [address] [place] Anion gap [Moles/Vol] 10 mmol/L Normal 9-18 [facility] Comment on above: Order Comment: Speci men Type: BLOOD SPECIMENOrdering Facility: [facility] Address: [address] [place] [address] Performed By: #### 2 4323-8 ####[facility] [id number] [place] [address] [place] AST [Catalytic activity/Vol] 50 U/L High 14-40 [facility] Comment on above: Order Comment: Speci men Type: BLOOD SPECIMENOrdering Facility: [facility] Address: [address] [place] [address] Performed By: #### 2 4323-8 ####[facility] [id number] [place] [address] [place] Bilirubin [Mass/Vol] 1.0 mg/dL Normal 0.2-1.3 [facility] Comment on above: Order Comment: Speci men Type: BLOOD SPECIMENOrdering Facility: [facility] Address: [address] [place], [place] [address] Performed By: #### 2 4323-8 ####[facility] [id number] [place] [address] [place] Calcium [Mass/Vol] 9.1 mg/dL Normal 8.5-10.2 [facility] Comment on above: Order Comment: Speci men Type: BLOOD SPECIMENOrdering Facility: [facility] Address: [address] [place], [place] [address] Performed By: #### 2 4323-8 ####[facility] [id number] [place] [address] [place] Chloride [Moles/Vol] 107 mmol/L High 97-105 [facility] Comment on above: Order Comment: Speci men Type: BLOOD SPECIMENOrdering Facility: [facility] Address: [address] [place] [address] Performed By: #### 2 4323-8 ####[facility] [id number] [place] [address] [place] CO2 [Moles/Vol] 25 mmol/L Normal 22-30 [facility] Comment on above: Order Comment: Speci men Type: BLOOD SPECIMENOrdering Facility: [facility] Address: [address] [place] [address] Performed By: #### 2 4323-8 ####[facility] [id number] [address] STATES OF [facility] Creatinine [Mass/Vol] 1.07 mg/dL Normal 0.73-1.22 [facility] Comment on above: Order Comment: Speci men Type: BLOOD SPECIMENOrdering Facility: [facility] Address: [address] [place] [address] Performed By: #### 2 4323-8 ####[facility] [id number] [address] ESTIMATED GLOMERULAR FILTRATION RATE 81 mL/min/1.73m??? Normal >=60 [facility] Comment on above: Order Comment: Speci men Type: BLOOD SPECIMENOrdering Facility: [facility] Address: [address] [place] [address] Result Comment: Laurita mated Glomerular Filtration Rate [...] By: #### 2 4323-8 ####[facility] [id number] [place] [address] [place] Glucose [Mass/Vol] 127 mg/dL High 74-99 [facility] Comment on above: Order Comment: Speci men Type: BLOOD SPECIMENOrdering Facility: [facility] Address: [address] [place], [place] [phone] Result Comment: The [place] Diabetes Association (ADA) provides guidance for cutoff [...] Standards of Medical Care in Diabetes 2016, [place] Diabetes Association. Diabetes Care. 2016.39(Suppl 1). Performed By: #### 2 4323-8 ####[facility] [id number] [place] [address] [place] Potassium [Moles/Vol] 3.6 mmol/L Low 3.7-5.1 [facility] Comment on above: Order Comment: Speci men Type: BLOOD SPECIMENOrdering Facility: [facility] Address: [address] [place], [place] [address] Performed By: #### 2 4323-8 ####[facility] [id number] [place] [address] [place] Protein [Mass/Vol] 6.8 g/dL Normal 6.3-8.0 [facility] Comment on above: Order Comment: Speci men Type: BLOOD SPECIMENOrdering Facility: [facility] Address: [address] [place] [address] Performed By: #### 2 4323-8 ####[facility] [id number] [place], [place] [address] [place] Sodium [Moles/Vol] 142 mmol/L Normal 136-144 [facility] Comment on above: Order Comment: Speci men Type: BLOOD SPECIMENOrdering Facility: [facility] Address: [address] [place] [address] Performed By: #### 2 4323-8 ####[facility] [id number] [address] STATES OF [facility] Urea nitrogen [Mass/Vol] 14 mg/dL Normal 9-24 [facility] Comment on above: Order Comment: Speci men Type: BLOOD SPECIMENOrdering Facility: [facility] Address: [address] [place] [address] Performed By: #### 2 4323-8 ####[facility] [id number] [place] [address] [place] D dimer FEU PPP-mCncon 09-02 Fibrin D-dimer FEU (PPP) [Mass/Vol] 1920 ng/mL FEU High <500 [facility] Comment on above: Order Comment: Speci men Type: BLOOD SPECIMENOrdering Facility: [facility] Address: [address] [place] [address] Performed By: #### 4 8065-7 ####[facility] [id number] [place] [address] [place] ED NOTEon 09-02-2021 ED NOTE HNO ID: [id number] Author: Lisa Bright RN Service: ? Author Type: Registered Nurse Type: ED Notes Filed: 09/02/2021 7:02 PM Note Text: Bed: Expected date: Expected time: Means of arrival: Comments: Normal [facility] ED NOTE HNO ID: [id number] Author: Luma Sanford RN Service: Emergency Medicine Author Type: Registered Nurse Type: ED Notes Filed: 09/02/2021 6:36 PM Note Text: Still no staff assigned to patient, RN to Dr Fleming to rock picker pt at this time. Normal [facility] ED PROV NOTEon 09-02-2021 ED PROV NOTE Normal [facility] Ferritin SerPl-mCncon 2021 Ferritin [Mass/Vol] 332.0 ng/mL Normal 30.3-565.7 [facility] Comment on above: Order Comment: Speci men Type: BLOOD SPECIMENOrdering Facility: [facility] Address: [address] [place] [address] Performed By: #### 3 034-6, 2276-4 ####[facility] LABCLIA [id number] [place] [address] [place] Fibrin D-dimer FEU (PPP) [Ma ss/Vol]on 09-02-2021 D DIMER AGE-RELATED CUTOFF 570 ng/mL FEU Normal [facility] Comment on above: Order Comment: Speci men Type: BLOOD SPECIMENOrdering Facility: [facility] Address: [address] [place] [address] Performed By: #### 4 8065-7 ####[facility] LABCLIA [id number] [place] [address] [place] HIGH SENSITIVITY TROPONIN To n 09-02-2021 HIGH SENSITIVITY BEAU 33 ng/L High <12 [facility] Comment on above: Order Comment: Speci men Type: BLOOD SPECIMENOrdering Facility: [facility] Address: [address] [place] [address] Result Comment: When assessing risk for acute [...] MACE. Performed By: #### 5 5454-3, HSTNT ####[facility] LABCLIA [id number] [place] [address] [place] HIGH SENSITIVITY BEAU 33 ng/L High <12 [facility] Comment on above: Order Comment: Aaliyah gibson Type: BLOOD SPECIMENOrdering Facility: [facility] Address: [address] [place] [address] Result Comment: When assessing risk for acute [...] day MACE. Performed By: #### H STNT ####[facility] LABCLIA [id number] [address] STATES OF [facility] HISTORY PHYSICALon HISTORY PHYSICAL Normal [facility] HbA1c (Bld)on 09-02-2021 Average glucose Estimated from glycated hemoglobin (Bld) [Mass/Vol] 137 mg/dL Normal [facility] Comment on above: Order Comment: Aaliyah gibson Type: BLOOD SPECIMENOrdering Facility: [facility] Address: [address] [place], [place] [address] Result Comment: eAG: (Estimated average glucose) is a calculated value from HgbA1c and is new accounts banking representative of the average blood glucose level in the last 2-3 month period. Performed By: #### 5 5454-3, HSTNT ####[facility] LABCLIA [id number] [address] STATES OF [facility] HbA1c (Bld) [Mass fraction] 6.4 % High 4.3-5.6 [facility] Comment on above: Order Comment: Aaliyah gibson Type: BLOOD SPECIMENOrdering Facility: [facility] Address: [address] [place] [address] Result Comment: [place] Diabetes Association guidelines indicate that patients with HgbA1c in the range 5.7-6.4% are at increased risk for development of diabetes, and intervention by lifestyle modification may be beneficial. HgbA1c greater or equal to 6.5% is considered diagnostic of diabetes. Performed By: #### 5 5454-3, HSTNT ####[facility] [id number] [place] [address] [place] LDH SerPl-cCncon 09-02-2021 LDH [Catalytic activity/Vol] 336 U/L High 135-225 [facility] Comment on above: Order Comment: Speci men Type: BLOOD SPECIMENOrdering Facility: [facility] Address: [address] [place] [address] Performed By: #### 2 532-0 ####[facility] [id number] [place] [address] [place] Magnesium SerPl-mCncon 09-02 Magnesium [Mass/Vol] 2.2 mg/dL Normal 1.7-2.3 [facility] Comment on above: Order Comment: Speci men Type: BLOOD SPECIMENOrdering Facility: [facility] Address: [address] [place] [address] Performed By: #### 3 3762-6, 3016-3, 75949-4 ####[facility] [id number] [address] NT-proBNP SerPl-ncon 09-02 Natriuretic peptide.B prohormone N-Terminal [Mass/Vol] 3442 pg/mL High <125 [facility] Comment on above: Order Comment: Speci men Type: BLOOD SPECIMENOrdering Facility: [facility] Address: [address] [place], [place] [address] Performed By: #### 3 3762-6, 3016-3, 49250-9 ####[facility] [id number] [place] [address] [place] No Panel Informationon 09-02 [facility] PT panel Coag (PPP)on 2021 INR Coag (PPP) [Relative time] 1.1 {INR} Normal 0.9-1.3 [facility] Comment on above: Order Comment: Aaliyah gibson Type: BLOOD SPECIMENOrdering Facility: [facility] Address: [address] [place] [address] Result Comment: Constanza min K Antagonist (VKA) Therapeutic Range: INR 2 to 3 (Target INR of 2.5)Note: For patients treated with VKA drugs, such as warfarin, the [place] [employer] 2012 Guideline recommends [...] al. Chest 2012, 141:7S-47SNishimura RA, et al. [facility] 2017, 70: 252-289 Performed By: #### 3 4528-0, 30646-1 ####[facility] [id number] [place] [address] [place] PT Coag (PPP) [Time] 12.0 s Normal 9.7-13.0 [facility] Comment on above: Order Comment: Aaliyah gibson Type: BLOOD SPECIMENOrdering Facility: [facility] Address: [address] [phone] Performed By: #### 3 4528-0, 50873-0 ####[facility] [id number] [place] [address] [place] SARS-CoV-2 RNA Resp Ql SANDOVAL+p luciano 09-02-2021 SARS-CoV-2 (COVID-19) RNA SANDOVAL+probe Ql (Resp) COVID 19 RESULT: SARS-CoV-2 (Agent of COVID-19) Not Detected by RT-PCR or equivalent method. This test has been authorized by FDA under an Emergency Use Authorization (EUA). Normal [facility] Comment on above: Performed By: #### 9 4500-6 ####[facility] LABCLIA [id number] [place] [address] [place] TSH SerPl-aCncon 09-02-2021 TSH Qn 1.460 m[IU]/L Normal 0.270-4.20 0 [facility] Comment on above: Order Comment: Speci men Type: BLOOD SPECIMENOrdering Facility: [facility] Address: [address] [place] [address] Performed By: #### 3 3762-6, 3016-3, 99114-1 ####[facility] LABIA [id number] [address] [place] Transferrin SerPl-mCncon Transferrin [Mass/Vol] 234 mg/dL Normal 200-360 [facility] Comment on above: Order Comment: Speci men Type: BLOOD SPECIMENOrdering Facility: [facility] Address: [address] [place] [address] Performed By: #### 3 034-6, 2276-4 ####[facility] LABIA [id number] [address] [place] XR CHEST 2V FRONTAL/LATon XR CHEST 2V FRONTAL/LAT Normal C [facility] aPTT PPPon 09-02-2021 aPTT Coag (PPP) [Time] 28.7 s Normal 23.0-32.4 [facility] Comment on above: Order Comment: Speci men Type: BLOOD SPECIMENOrdering Facility: [facility] Address: [address] [place] [address] Performed By: #### 3 4528-0, 47388-8 ####[facility] LABCLIA [id number] [place] [address] [place] CNPNon 09-01-2021 CNPN Normal [facility] CNNURSEon 08-27-2021 CNNURSE Normal [facility] CBC W Auto Differential pane l (Bld)on 08-19-2021 Basophils (Bld) [#/Vol] 0.04 10*3/uL Normal <0.11 [facility] Comment on above: Order Comment: Speci men Type: BLOOD SPECIMENOrdering Facility: [facility] Address: [address] [place] [address] Performed By: #### 5 7021-8 ####[facility] [id number] [place] [address] [place] Basophils/100 WBC (Bld) 0.7 % Normal [facility] Comment on above: Order Comment: Speci men Type: BLOOD SPECIMENOrdering Facility: [facility] Address: [address] [place] [address] Performed By: #### 5 7021-8 ####[facility] [id number] [place] [address] [place] Differential cell count method Nom (Bld) Auto Normal [facility] Comment on above: Order Comment: Speci men Type: BLOOD SPECIMENOrdering Facility: [facility] Address: [address] [place] [address] Performed By: #### 5 7021-8 ####[facility] [id number] [place] [address] [place] Eosinophils (Bld) [#/Vol] 0.15 10*3/uL Normal <0.46 [facility] Comment on above: Order Comment: Speci men Type: BLOOD SPECIMENOrdering Facility: [facility] Address: [address] [place] [address] Performed By: #### 5 7021-8 ####[facility] [id number] [place] [address] [place] Eosinophils/100 WBC (Bld) 2.5 % Normal [facility] Comment on above: Order Comment: Speci men Type: BLOOD SPECIMENOrdering Facility: [facility] Address: [address] [place], [place] [address] Performed By: #### 5 7021-8 ####[facility] [id number] [address] [place] Erythrocyte distribution width (RBC) [Ratio] 15.0 % Normal 11.5-15.0 [facility] Comment on above: Order Comment: Speci men Type: BLOOD SPECIMENOrdering Facility: [facility] Address: [address] [place], [place] [address] Performed By: #### 5 7021-8 ####[facility] [id number] [place] [address] [place] OF [facility] Hematocrit (Bld) [Volume fraction] 49.1 % Normal 39.0-51.0 [facility] Comment on above: Order Comment: Speci men Type: BLOOD SPECIMENOrdering Facility: [facility] Address: [address] [place], [place] [address] Performed By: #### 5 7021-8 ####[facility] [id number] [address] [place] OF [place] Hemoglobin (Bld) [Mass/Vol] 17.0 g/dL Normal 13.0-17.0 [facility] Comment on above: Order Comment: Speci men Type: BLOOD SPECIMENOrdering Facility: [facility] Address: [address] [place], [place] [address] Performed By: #### 5 7021-8 ####[facility] [id number] [place] [address] [place] IMMATURE GRAN % 0.3 % Normal [facility] Comment on above: Order Comment: Speci men Type: BLOOD SPECIMENOrdering Facility: [facility] Address: [address] [place], [place] [address] Performed By: #### 5 7021-8 ####[facility] [id number] [place] [address] [place] IMMATURE GRAN ABS <0.03 Normal <0.10 [facility] Comment on above: Order Comment: Speci men Type: BLOOD SPECIMENOrdering Facility: [facility] Address: [address] [place], [place] [address] Performed By: #### 5 7021-8 ####[facility] [id number] [place] [address] OF [facility] Lymphocytes (Bld) [#/Vol] 1.58 10*3/uL Normal 1.00-4.00 [facility] Comment on above: Order Comment: Speci men Type: BLOOD SPECIMENOrdering Facility: [facility] Address: [address] [place], [place] [address] Performed By: #### 5 7021-8 ####[facility] [id number] [place] [address] STATES [facility] Lymphocytes/100 WBC (Bld) 26.2 % Normal [facility] Comment on above: Order Comment: Speci men Type: BLOOD SPECIMENOrdering Facility: [facility] Address: [address] [place], [place] [address] Performed By: #### 5 7021-8 ####[facility] [id number] [place] [address] [place] MCH (RBC) [Entitic mass] 29.6 pg Normal 26.0-34.0 [facility] Comment on above: Order Comment: Speci men Type: BLOOD SPECIMENOrdering Facility: [facility] Address: [address] [place], [place] [address] Performed By: #### 5 7021-8 ####[facility] [id number] [place] [address] MCHC (RBC) [Mass/Vol] 34.6 g/dL Normal 30.5-36.0 [facility] Comment on above: Order Comment: Speci men Type: BLOOD SPECIMENOrdering Facility: [facility] Address: [address] [place] [address] Performed By: #### 5 7021-8 ####[facility] [id number] [place] [address] MCV (RBC) [Entitic vol] 85.5 fL Normal 80.0-100.0 C [facility] Comment on above: Order Comment: Speci men Type: BLOOD SPECIMENOrdering Facility: [facility] Address: [address] [place] [address] Performed By: #### 5 7021-8 ####[facility] [id number] [place] [address] [place] Monocytes (Bld) [#/Vol] 0.49 10*3/uL Normal <0.87 [facility] Comment on above: Order Comment: Speci men Type: BLOOD SPECIMENOrdering Facility: [facility] Address: [address] [place] [address] Performed By: #### 5 7021-8 ####[facility] [id number] [address] [place] OF [place] Monocytes/100 WBC (Bld) 8.1 % Normal [facility] Comment on above: Order Comment: Speci men Type: BLOOD SPECIMENOrdering Facility: [facility] Address: [address] [place], [place] [address] Performed By: #### 5 7021-8 ####[facility] [id number] [place] [address] [place] Neutrophils (Bld) [#/Vol] 3.74 10*3/uL Normal 1.45-7.50 [facility] Comment on above: Order Comment: Speci men Type: BLOOD SPECIMENOrdering Facility: [facility] Address: [address] [place], [place] [address] Performed By: #### 5 7021-8 ####[facility] [id number] [place] [address] Neutrophils/100 WBC (Bld) 62.2 % Normal [facility] Comment on above: Order Comment: Speci men Type: BLOOD SPECIMENOrdering Facility: [facility] Address: [address] [place], [place] [address] Performed By: #### 5 7021-8 ####[facility] [id number] [place] [address] [place] Nucleated RBC (Bld) [#/Vol] 10*3/uL Normal <0.01 [facility] Comment on above: Order Comment: Speci men Type: BLOOD SPECIMENOrdering Facility: [facility] Address: [address] [place], [place] [address] Performed By: #### 5 7021-8 ####[facility] [id number] [place] [address] OF [facility] Nucleated RBC/100 WBC (Bld) [Ratio] 0.0 /100 WBC Normal [facility] Comment on above: Order Comment: Speci men Type: BLOOD SPECIMENOrdering Facility: [facility] Address: [address] [place], [place] [address] Performed By: #### 5 7021-8 ####[facility] [id number] [place] [address] [place] Platelet mean volume (Bld) [Entitic vol] 10.4 fL Normal 9.0-12.7 [facility] Comment on above: Order Comment: Speci men Type: BLOOD SPECIMENOrdering Facility: [facility] Address: [address] [place], [place] [address] Performed By: #### 5 7021-8 ####[facility] [id number] [place] [address] [place] Platelets (Bld) [#/Vol] 298 10*3/uL Normal 150-400 [facility] Comment on above: Order Comment: Speci men Type: BLOOD SPECIMENOrdering Facility: [facility] Address: [address] [place] [address] Performed By: #### 5 7021-8 ####[facility] [id number] [place] [address] [place] RBC (Bld) [#/Vol] 5.74 10*6/uL Normal 4.20-6.00 [facility] Comment on above: Order Comment: Speci men Type: BLOOD SPECIMENOrdering Facility: [facility] Address: [address] [place] [address] Performed By: #### 5 7021-8 ####[facility] [id number] [place] [address] [place] WBC (Bld) [#/Vol] 6.02 10*3/uL Normal 3.70-11.00 [facility] Comment on above: Order Comment: Speci men Type: BLOOD SPECIMENOrdering Facility: [facility] Address: [address] [place] [address] Performed By: #### 5 7021-8 ####[facility] [id number] [place] [address] [place] CNNURSEon 08-19-2021 CNNURSE Normal [facility] CNOVon 08-19-2021 CNOV Normal [facility] CNOVSPon 08-19-2021 CNOVSP Normal [facility] Comprehensive metabolic 2000 panelon 08-19-2021 Albumin [Mass/Vol] 4.6 g/dL Normal 3.9-4.9 [facility] Comment on above: Order Comment: Speci men Type: BLOOD SPECIMENOrdering Facility: [facility] Address: [address] [place], [place] [address] Performed By: #### 2 4323-8, 308-1, ####[facility] [id number] [place] [address] [place] [Catalytic activity/Vol] 84 U/L Normal 38-113 [facility] Comment on above: Order Comment: Speci men Type: BLOOD SPECIMENOrdering Facility: [facility] Address: [address] [place], [place] [id number] Performed By: #### 2 4323-8, 3083-1, ####[facility] [id number] [address] [place] [Catalytic activity/Vol] 59 U/L High 10-54 [facility] Comment on above: Order Comment: Speci men Type: BLOOD SPECIMENOrdering Facility: [facility] Address: [address] [place], [place] [address] Performed By: #### 2 4323-8, 3083-, ####[facility] [id number] [address] [place] [facility] Anion gap [Moles/Vol] 12 mmol/L Normal 9-18 [facility] Comment on above: Order Comment: Speci men Type: BLOOD SPECIMENOrdering Facility: [facility] Address: [address] [place] [address] Performed By: #### 2 4323-8, 3081, ####[facility] [id number] [address] [place] AST [Catalytic activity/Vol] 45 U/L High 14-40 [facility] Comment on above: Order Comment: Speci men Type: BLOOD SPECIMENOrdering Facility: [facility] Address: [address] [place], [place] [address] Performed By: #### 2 4323-8, 3084-1, 91272-8 ####[facility] [id number] [place] [address] [place] Bilirubin [Mass/Vol] 0.3 mg/dL Normal 0.2-1.3 [facility] Comment on above: Order Comment: Speci men Type: BLOOD SPECIMENOrdering Facility: [facility] Address: [address] [place], [place] [address] Performed By: #### 2 4323-8, 3084-1, ####[facility] [id number] [place] [address] [place] Calcium [Mass/Vol] 9.7 mg/dL Normal 8.5-10.2 [facility] Comment on above: Order Comment: Speci men Type: BLOOD SPECIMENOrdering Facility: [facility] Address: [address] [place], [place] [address] Performed By: #### 2 4323-8, 3084-1, ####[facility] [id number] [place] [address] [place] Chloride [Moles/Vol] 102 mmol/L Normal 97-105 [facility] Comment on above: Order Comment: Speci men Type: BLOOD SPECIMENOrdering Facility: [facility] Address: [address] [place], [place] [address] Performed By: #### 2 4323-8, 3084-1, ####[facility] [id number] [place] [address] [place] CO2 [Moles/Vol] 26 mmol/L Normal 22-30 [facility] Comment on above: Order Comment: Speci men Type: BLOOD SPECIMENOrdering Facility: [facility] Address: [address] [place], [place] [address] Performed By: #### 2 4323-8, 3084-1, ####[facility] [id number] [place] [address] [place] Creatinine [Mass/Vol] 1.26 mg/dL High 0.73-1.22 [facility] Comment on above: Order Comment: Aaliyah gibson Type: BLOOD SPECIMENOrdering Facility: [facility] Address: [address] [place], [place] [address] Performed By: #### 2 4323-8, 308-1, ####[facility] [id number] [place] [address] [place] ESTIMATED GLOMERULAR FILTRATION RATE 67 mL/min/1.73m??? Normal >=60 [facility] Comment on above: Order Comment: Aaliyah gibson Type: BLOOD SPECIMENOrdering Facility: [facility] Address: [address] [place], [place] [address] Result Comment: Laurita mated Glomerular Filtration Rate [...] #### 2 4323-8, 3083-03, ####[facility] [id number] [place] [address] [place] Glucose [Mass/Vol] 108 mg/dL High 74-99 [facility] Comment on above: Order Comment: Aaliyah gibson Type: BLOOD SPECIMENOrdering Facility: [facility] Address: [address] [place], [place] [address] Result Comment: The [place] Diabetes Association (ADA) provides guidance for cutoff [...] Standards of Medical Care in Diabetes 2016, [place] [employer]. Diabetes Care. 2016.39(Suppl 1). Performed By: #### 2 4323-8, 3083-03, ####[facility] [id number] [place] [address] [place] Potassium [Moles/Vol] 4.1 mmol/L Normal 3.7-5.1 [facility] Comment on above: Order Comment: Speci men Type: BLOOD SPECIMENOrdering Facility: [facility] Address: [address] [place], [place] [address] Performed By: #### 2 4323-8, 3083-03, ####[facility] [id number] [place] [address] [place] Protein [Mass/Vol] 7.4 g/dL Normal 6.3-8.0 [facility] Comment on above: Order Comment: Speci men Type: BLOOD SPECIMENOrdering Facility: [facility] Address: [address] [place], [place] [address] Performed By: #### 2 4323-8, 3083-03, ####[facility] [id number] [place] [address] [place] Sodium [Moles/Vol] 140 mmol/L Normal 136-144 [facility] Comment on above: Order Comment: Speci men Type: BLOOD SPECIMENOrdering Facility: [facility] Address: [address] [place], [place] [address] Performed By: #### 2 4323-8, 3083-03, 78152-5 ####[facility] [id number] [place] [address] [place] Urea nitrogen [Mass/Vol] 17 mg/dL Normal 9-24 [facility] Comment on above: Order Comment: Speci men Type: BLOOD SPECIMENOrdering Facility: [facility] Address: [address] [place] [address] Performed By: #### 2 4323-8, 3084-1, 35519-9 ####[facility] [id number] [place] [address] [place] LDH SerPl-cCncon 08-19-2021 LDH [Catalytic activity/Vol] 334 U/L High 135-225 [facility] Comment on above: Order Comment: Speci men Type: BLOOD SPECIMENOrdering Facility: [facility] Address: [address] [place] [address] Performed By: #### 2 532-0 ####[facility] [id number] [place] [address] [place] Magnesium SerPl-mCncon 08-19 Magnesium [Mass/Vol] 2.3 mg/dL Normal 1.7-2.3 [facility] Comment on above: Order Comment: Speci men Type: BLOOD SPECIMENOrdering Facility: [facility] Address: [address] [place], [place] [address] Performed By: #### 2 4323-8, 3084-1, ####[facility] [id number] [place] [address] [place] PT panel Coag (PPP)on 2021 INR Coag (PPP) [Relative time] 1.0 {INR} Normal 0.9-1.3 [facility] Comment on above: Order Comment: Speci men Type: BLOOD SPECIMENOrdering Facility: [facility] Address: [address] [place], [place] [address] Result Comment: Constanza min K Antagonist (VKA) Therapeutic Range: INR 2 to 3 (Target INR of 2.5)Note: For patients treated with VKA drugs, such as warfarin, the [place] [employer] 2012 Guideline recommends [...] al. Chest 2012, 141:7S-47SNishnini RA, et al. [facility] 2017, 70: 252-289 Performed By: #### 3 4528-0, 02416-4 ####[facility] [id number] [place] [address] [place] PT Coag (PPP) [Time] 10.9 s Normal 9.7-13.0 [facility] Comment on above: Order Comment: Speci men Type: BLOOD SPECIMENOrdering Facility: [facility] Address: [address] [place] [address] Performed By: #### 3 4528-0, 53657-4 ####[facility] [id number] [place] [address] [place] Phosphate SerPl-mCncon 08-19 Phosphate [Mass/Vol] 4.2 mg/dL Normal 2.7-4.8 [facility] Comment on above: Order Comment: Speci men Type: BLOOD SPECIMENOrdering Facility: [facility] Address: [address] [place] [address] Performed By: #### 2 777-1 ####[facility] [id number] [place] [address] [place] Urate SerPl-mCncon Urate [Mass/Vol] 7.4 mg/dL Normal 4.0-8.1 [facility] Comment on above: Order Comment: Speci men Type: BLOOD SPECIMENOrdering Facility: [facility] Address: [address] [place] [address] Performed By: #### 2 4323-8, 3084-1, 99979-8 ####[facility] [id number] [place] [address] [place] aPTT PPPon 08-19-2021 aPTT Coag (PPP) [Time] 28.3 s Normal 23.0-32.4 [facility] Comment on above: Order Comment: Speci men Type: BLOOD SPECIMENOrdering Facility: [facility] Address: [address] [place] [address] Performed By: #### 3 4528-0, 13062-0 ####[facility] [id number] [place] [address] [place] CNPNon 08-18-2021 CNPN Normal [facility] CBC W Auto Differential pane l (Bld)on 08-17-2021 Basophils (Bld) [#/Vol] 0.04 10*3/uL Normal <0.11 [facility] Comment on above: Order Comment: Speci men Type: BLOOD SPECIMENOrdering Facility: [facility] Address: [address] [place], [place] [address] Performed By: #### 5 7021-8 ####[facility] [id number] [address] [place] Basophils/100 WBC (Bld) 0.5 % Normal C [facility] Comment on above: Order Comment: Speci men Type: BLOOD SPECIMENOrdering Facility: [facility] Address: [address] [place] [address] Performed By: #### 5 7021-8 ####[facility] LABCLIA [id number] [place] [address] [place] Differential cell count method Nom (Bld) Auto Normal [facility] Comment on above: Order Comment: Speci men Type: BLOOD SPECIMENOrdering Facility: [facility] Address: [address] [place] [address] Performed By: #### 5 7021-8 ####[facility] LABCLIA [id number] [place] [address] [place] Eosinophils (Bld) [#/Vol] 0.18 10*3/uL Normal <0.46 [facility] Comment on above: Order Comment: Speci men Type: BLOOD SPECIMENOrdering Facility: [facility] Address: [address] [place] [address] Performed By: #### 5 7021-8 ####[facility] LABCLIA [id number] [place] [address] [place] Eosinophils/100 WBC (Bld) 2.4 % Normal [facility] Comment on above: Order Comment: Speci men Type: BLOOD SPECIMENOrdering Facility: [facility] Address: [address] [place] [address] Performed By: #### 5 7021-8 ####[facility] LABIA [id number] [place] [address] [place] Erythrocyte distribution width (RBC) [Ratio] 14.6 % Normal 11.5-15.0 [facility] Comment on above: Order Comment: Speci men Type: BLOOD SPECIMENOrdering Facility: [facility] Address: [address] [place], [place] [address] Performed By: #### 5 7021-8 ####[facility] LABCLIA [id number] [place] [address] [place] Hematocrit (Bld) [Volume fraction] 47.4 % Normal 39.0-51.0 [facility] Comment on above: Order Comment: Speci men Type: BLOOD SPECIMENOrdering Facility: [facility] Address: [address] [place], [place] [address] Performed By: #### 5 7021-8 ####[facility] LABCLIA [id number] [place] [address] [place] Hemoglobin (Bld) [Mass/Vol] 16.4 g/dL Normal 13.0-17.0 [facility] Comment on above: Order Comment: Speci men Type: BLOOD SPECIMENOrdering Facility: [facility] Address: [address] [place] [address] Performed By: #### 5 7021-8 ####[facility] LABCLIA [id number] [place] [address] [place] IMMATURE GRAN % 0.3 % Normal [facility] Comment on above: Order Comment: Speci men Type: BLOOD SPECIMENOrdering Facility: [facility] Address: [address] [place], [place] [address] Performed By: #### 5 7021-8 ####[facility] LABCLIA [id number] [place] [address] [place] IMMATURE GRAN ABS <0.03 Normal <0.10 [facility] Comment on above: Order Comment: Speci men Type: BLOOD SPECIMENOrdering Facility: [facility] Address: [address] [place], [place] [address] Performed By: #### 5 7021-8 ####[facility] LABCLIA [id number] [place] [address] [place] Lymphocytes (Bld) [#/Vol] 1.36 10*3/uL Normal 1.00-4.00 [facility] Comment on above: Order Comment: Speci men Type: BLOOD SPECIMENOrdering Facility: [facility] Address: [address] [place], [place] [address] Performed By: #### 5 7021-8 ####[facility] LABIA [id number] [address] [place] [facility] Lymphocytes/100 WBC (Bld) 18.4 % Normal [facility] Comment on above: Order Comment: Speci men Type: BLOOD SPECIMENOrdering Facility: [facility] Address: [address] [place], [place] [address] Performed By: #### 5 7021-8 ####[facility] LABIA [id number] [address] [place] MCH (RBC) [Entitic mass] 29.8 pg Normal 26.0-34.0 [facility] Comment on above: Order Comment: Speci men Type: BLOOD SPECIMENOrdering Facility: [facility] Address: [address] [place], [place] [address] Performed By: #### 5 7021-8 ####[facility] [id number] [address] [place] [facility] MCHC (RBC) [Mass/Vol] 34.6 g/dL Normal 30.5-36.0 [facility] Comment on above: Order Comment: Speci men Type: BLOOD SPECIMENOrdering Facility: [facility] Address: [address] [place], [place] [address] Performed By: #### 5 7021-8 ####[facility] LABIA [id number] [address] [place] MCV (RBC) [Entitic vol] 86.0 fL Normal 80.0-100.0 C [facility] Comment on above: Order Comment: Speci men Type: BLOOD SPECIMENOrdering Facility: [facility] Address: [address] [place] [address] Performed By: #### 5 7021-8 ####[facility] LABIA [id number] [address] [id number] [address] [place] Monocytes (Bld) [#/Vol] 0.42 10*3/uL Normal <0.87 [facility] Comment on above: Order Comment: Speci men Type: BLOOD SPECIMENOrdering Facility: [facility] Address: [address] [place], [place] [address] Performed By: #### 5 7021-8 ####[facility] LABCLIA [id number] [place] [address] [place] Monocytes/100 WBC (Bld) 5.7 % Normal [facility] Comment on above: Order Comment: Speci men Type: BLOOD SPECIMENOrdering Facility: [facility] Address: [address] [place], [place] [address] Performed By: #### 5 7021-8 ####[facility] LABCLIA [id number] [place] [address] [place] Neutrophils (Bld) [#/Vol] 5.37 10*3/uL Normal 1.45-7.50 [facility] Comment on above: Order Comment: Speci men Type: BLOOD SPECIMENOrdering Facility: [facility] Address: [address] [place], [place] [address] Performed By: #### 5 7021-8 ####[facility] LABCLIA [id number] [place] [address] [place] Neutrophils/100 WBC (Bld) 72.7 % Normal [facility] Comment on above: Order Comment: Speci men Type: BLOOD SPECIMENOrdering Facility: [facility] Address: [address] [place], [place] [address] Performed By: #### 5 7021-8 ####[facility] LABCLIA [id number] [place] [address] [place] Nucleated RBC (Bld) [#/Vol] 10*3/uL Normal <0.01 [facility] Comment on above: Order Comment: Speci men Type: BLOOD SPECIMENOrdering Facility: [facility] Address: [address] [place], [place] [address] Performed By: #### 5 7021-8 ####[facility] LABIA [id number] [place] [address] [place] Nucleated RBC/100 WBC (Bld) [Ratio] 0.0 /100 WBC Normal [facility] Comment on above: Order Comment: Speci men Type: BLOOD SPECIMENOrdering Facility: [facility] Address: [address] [place], [place] [address] Performed By: #### 5 7021-8 ####[facility] [id number] [place] [address] [place] Platelet mean volume (Bld) [Entitic vol] 10.0 fL Normal 9.0-12.7 [facility] Comment on above: Order Comment: Speci men Type: BLOOD SPECIMENOrdering Facility: [facility] Address: [address] [place], [place] [address] Performed By: #### 5 7021-8 ####[facility] LABIA [id number] [place] [address] [place] Platelets (Bld) [#/Vol] 288 10*3/uL Normal 150-400 [facility] Comment on above: Order Comment: Speci men Type: BLOOD SPECIMENOrdering Facility: [facility] Address: [address] [place] [address] Performed By: #### 5 7021-8 ####[facility] LABIA [id number] [place] [address] [place] RBC (Bld) [#/Vol] 5.51 10*6/uL Normal 4.20-6.00 [facility] Comment on above: Order Comment: Speci men Type: BLOOD SPECIMENOrdering Facility: [facility] Address: [address] [place] [address] Performed By: #### 5 7021-8 ####[facility] LABCLIA [id number] [address] [address] [place] WBC (Bld) [#/Vol] 7.39 10*3/uL Normal 3.70-11.00 [facility] Comment on above: Order Comment: Speci men Type: BLOOD SPECIMENOrdering Facility: [facility] Address: [address] [place], [place] [address] Performed By: #### 5 7021-8 ####[facility] LABCLIA [id number] [place] [address] [place] ABD/PEL WO IVCONon 2021 CT ABD/PEL WO IVCON Normal [facility] CT CHEST W IVCON PEon 2021 CT CHEST W IVCON PE Normal [facility] Comprehensive metabolic 2000 panelon 08-17-2021 Albumin [Mass/Vol] 4.4 g/dL Normal 3.9-4.9 [facility] Comment on above: Order Comment: Speci men Type: BLOOD SPECIMENOrdering Facility: [facility] Address: [address] [place], [place] [address] Performed By: #### 3 040-3, 47820-5, 04459-0, 41226-9, BEAU ####[facility] LABIA [id number] [place] [address] [place] ALP [Catalytic activity/Vol] 74 U/L Normal 38-113 [facility] Comment on above: Order Comment: Speci men Type: BLOOD SPECIMENOrdering Facility: [facility] Address: [address] [place], [place] [address] Performed By: #### 3 040-3, 05469-8, 89968-6, , BEAU ####[facility] LABCLIA [id number] [place] [id number] [place] ALT [Catalytic activity/Vol] 44 U/L Normal 10-54 [facility] Comment on above: Order Comment: Speci men Type: BLOOD SPECIMENOrdering Facility: [facility] Address: [address] [place], [place] [address] Performed By: #### 3 040-3, 74139-5, 05848-3, 00326-9, BEAU ####[facility] LABCLIA [id number] [place] [address] [place] Anion gap [Moles/Vol] 12 mmol/L Normal 9-18 [facility] Comment on above: Order Comment: Speci men Type: BLOOD SPECIMENOrdering Facility: [facility] Address: [address] [place] [address] Performed By: #### 3 040-3, 75202-0, , , BEAU ####[facility] LABCLIA [id number] [place] [address] [place] AST [Catalytic activity/Vol] 27 U/L Normal 14-40 [facility] Comment on above: Order Comment: Speci men Type: BLOOD SPECIMENOrdering Facility: [facility] Address: [address] [place] [address] Performed By: #### 3 040-3, 35000-4, , 85530-3, BEAU ####[facility] LABCLIA [id number] [place] [address] [place] Bilirubin [Mass/Vol] 0.7 mg/dL Normal 0.2-1.3 [facility] Comment on above: Order Comment: Speci men Type: BLOOD SPECIMENOrdering Facility: [facility] Address: [address] [place] [address] Performed By: #### 3 040-3, 57427-0, , , BEAU ####[facility] LABCLIA [id number] [place] [address] [place] Calcium [Mass/Vol] 10.3 mg/dL High 8.5-10.2 [facility] Comment on above: Order Comment: Speci men Type: BLOOD SPECIMENOrdering Facility: [facility] Address: [address] [place] [address] Performed By: #### 3 040-3, 12822-4, 89650-5, 04735-1, BEAU ####[facility] LABCLIA [id number] [place] [address] [place] Chloride [Moles/Vol] 99 mmol/L Normal 97-105 [facility] Comment on above: Order Comment: Speci men Type: BLOOD SPECIMENOrdering Facility: [facility] Address: [address] [place] [address] Performed By: #### 3 040-3, 23426-8, 57984-1, 95155-0, BEAU ####[facility] LABCLIA [id number] [place] [address] [place] CO2 [Moles/Vol] 26 mmol/L Normal 22-30 [facility] Comment on above: Order Comment: Speci men Type: BLOOD SPECIMENOrdering Facility: [facility] Address: [address] [place] [address] Performed By: #### 3 040-3, 91777-6, 96056-9, 61524-9, BEAU ####[facility] LABCLIA [id number] [place] [address] [place] Creatinine [Mass/Vol] 1.21 mg/dL Normal 0.73-1.22 [facility] Comment on above: Order Comment: Speci men Type: BLOOD SPECIMENOrdering Facility: [facility] Address: [address] [place], [place] [address] Performed By: #### 3 040-3, 49316-5, 13113-1, 62785-3, BEAU ####[facility] LABCLIA [id number] [place] [address] [place] ESTIMATED GLOMERULAR FILTRATION RATE 70 mL/min/1.73m??? Normal >=60 [facility] Comment on above: Order Comment: Aaliyah gibson Type: BLOOD SPECIMENOrdering Facility: [facility] Address: [address] [place] [id number] Result Comment: Laurita mated Glomerular Filtration Rate [...] actual GFR. Performed By: #### 3 040-3, 10650-8, 04489-9, , BEAU ####[facility] LABCLIA [id number] [place] [id number] [place] Glucose [Mass/Vol] 118 mg/dL High 74-99 [facility] Comment on above: Order Comment: Aaliyah gibson Type: BLOOD SPECIMENOrdering Facility: [facility] Address: [address] [place], [place] [phone] Result Comment: The [place] [employer] (ADA) provides guidance for cutoff [...] Standards of Medical Care in Diabetes 2016, [place] [employer]. Diabetes Care. 2016.39(Suppl 1). Performed By: #### 3 040-3, 24064-4, 01989-5, 72610-3, BEAU ####[facility] LABCLIA [id number] [address] [address] [place] Potassium [Moles/Vol] 4.1 mmol/L Normal 3.7-5.1 [facility] Comment on above: Order Comment: Speci men Type: BLOOD SPECIMENOrdering Facility: [facility] Address: [address] [place] [address] Performed By: #### 3 040-3, 77892-0, 20330-4, 24224-6, BEAU ####[facility] LABCLIA [id number] [place] [address] [place] Protein [Mass/Vol] 7.8 g/dL Normal 6.3-8.0 [facility] Comment on above: Order Comment: Speci men Type: BLOOD SPECIMENOrdering Facility: [facility] Address: [address] [place] [address] Performed By: #### 3 040-3, 26361-7, 31448-6, 26616-5, BEAU ####[facility] LABCLIA [id number] [place] [address] [place] Sodium [Moles/Vol] 137 mmol/L Normal 136-144 [facility] Comment on above: Order Comment: Speci men Type: BLOOD SPECIMENOrdering Facility: [facility] Address: [address] [place] [address] Performed By: #### 3 040-3, 38072-8, 67368-6, 93106-4, BEAU ####[facility] LABCLIA [id number] [place] [address] [place] Urea nitrogen [Mass/Vol] 13 mg/dL Normal 9-24 [facility] Comment on above: Order Comment: Speci men Type: BLOOD SPECIMENOrdering Facility: [facility] Address: [address] [place] [address] Performed By: #### 3 040-3, 49050-5, 76709-2, 09563-8, BEAU ####[facility] LABCLIA [id number] [place] D dimer FEU PPP-mCncon 08-17 Fibrin D-dimer FEU (PPP) [Mass/Vol] 1060 ng/mL FEU High <500 [facility] Comment on above: Order Comment: Speci men Type: BLOOD SPECIMENOrdering Facility: [facility] Address: [address] [place] [address] Performed By: #### 4 8065-7 ####[facility] LABCLIA [id number] [place] [address] [place] ED NOTEon 08-17-2021 ED NOTE Normal [facility] ED PROV NOTEon 08-17-2021 ED PROV NOTE Normal [facility] ED PROV NOTE Normal [facility] Fibrin D-dimer FEU (PPP) [Ma ss/Vol]on 08-17-2021 D DIMER AGE-RELATED CUTOFF 570 ng/mL FEU Normal [facility] Comment on above: Order Comment: Speci men Type: BLOOD SPECIMENOrdering Facility: [facility] Address: [address] [place] [address] Performed By: #### 4 8065-7 ####[facility] LABIA [id number] [place] [address] [place] Lipase SerPl-cCncon 08-18-19 22 Lipase [Catalytic activity/Vol] 22 U/L Normal 16-61 [facility] Comment on above: Order Comment: Speci men Type: BLOOD SPECIMENOrdering Facility: [facility] Address: [address] [place] [address] Performed By: #### 3 040-3, 54285-6, 50502-5, 78704-1, BEAU ####[facility] LABCLIA [id number] [place] [address] [place] Magnesium SerPl-mCncon 08-17 Magnesium [Mass/Vol] 2.0 mg/dL Normal 1.7-2.3 [facility] Comment on above: Order Comment: Speci men Type: BLOOD SPECIMENOrdering Facility: [facility] Address: [address] [place] [address] Performed By: #### 3 040-3, 24216-7, 43120-0, 26126-7, BEAU ####[facility] LABCLIA [id number] [place] [address] [place] NT[facility]BNP [facility] Natriuretic peptide.B prohormone N-Terminal [Mass/Vol] 1881 pg/mL High <125 [facility] Comment on above: Order Comment: Speci men Type: BLOOD SPECIMENOrdering Facility: [facility] Address: [address] [place] [address] Performed By: #### 3 040-3, 43488-6, 72284-6, 39781-7, BEAU ####[facility] LABCLIA [id number] [address] STATES [place] TROPONIN Ton 08-17-2021 Troponin T.cardiac [Mass/Vol] 0.022 ug/L Normal 0.000-0.02 9 [facility] Comment on above: Order Comment: Speci men Type: BLOOD SPECIMENOrdering Facility: [facility] Address: [address] [place] [address] Performed By: #### 3 040-3, 88378-7, 55199-4, 57547-0, BEAU ####[facility] LABCLIA [id number] [address] [place] Urinalysis complete panel (U )on 08-17-2021 Bilirubin Ql (U) Negative Normal Negative [facility] Comment on above: Order Comment: Speci men Type: URINE SPECIMENOrdering Facility: [facility] Address: [address] [place] [address] Performed By: #### 2 4356-8 ####[facility] LABCLIA [id number] [place] [address] OF [place] Clarity (Unsp spec) Clear Normal Clear [place] [facility] Comment on above: Order Comment: Speci men Type: URINE SPECIMENOrdering Facility: [facility] Address: [address] [place], [place] [address] Performed By: #### 2 4356-8 ####[facility] LABCLIA [id number] [address] STATES OF [place] Color (U) Yellow Normal Yellow [facility] Comment on above: Order Comment: Speci men Type: URINE SPECIMENOrdering Facility: [facility] Address: [address] [place], [place] [address] Performed By: #### 2 4356-8 ####[facility] LABCLIA [id number] [place] [address] [place] Epithelial cells LM.HPF (Urine sed) [#/Area] Few Normal [facility] Comment on above: Order Comment: Speci men Type: URINE SPECIMENOrdering Facility: [facility] Address: [address] [place], [place] [address] Performed By: #### 2 4356-8 ####[facility] LABCLIA [id number] [place] [address] [place] Glucose Test strip (U) [Mass/Vol] Negative Normal Negative [facility] Comment on above: Order Comment: Speci men Type: URINE SPECIMENOrdering Facility: [facility] Address: [address] [place], [place] [address] Performed By: #### 2 4356-8 ####[facility] LABCLIA [id number] [place] [address] [place] Hemoglobin Ql (U) Negative Normal Negative [facility] Comment on above: Order Comment: Speci men Type: URINE SPECIMENOrdering Facility: [facility] Address: [address] [place], [place] [address] Performed By: #### 2 4356-8 ####[facility] LABCLIA [id number] [place] [address] [place] Hyaline casts (Urine sed) [#/Area] 1-3 /LPF Abnormal 0 /LPF [facility] Comment on above: Order Comment: Speci men Type: URINE SPECIMENOrdering Facility: [facility] Address: [address] [place] [address] Performed By: #### 2 4356-8 ####[facility] LABCLIA [id number] [place] [address] [place] Ketones Ql (U) Negative Normal Negative [facility] Comment on above: Order Comment: Speci men Type: URINE SPECIMENOrdering Facility: [facility] Address: [address] [place] [address] Performed By: #### 2 4356-8 ####[facility] LABCLIA [id number] [place] [address] [place] Leukocyte esterase Test strip Ql (U) Negative Normal Negative [facility] Comment on above: Order Comment: Speci men Type: URINE SPECIMENOrdering Facility: [facility] Address: [address] [place] [address] Performed By: #### 2 4356-8 ####[facility] LABCLIA [id number] [place] [address] [place] Nitrite Ql (U) Negative Normal Negative [facility] Comment on above: Order Comment: Speci men Type: URINE SPECIMENOrdering Facility: [facility] Address: [address] [place], [place] [address] Performed By: #### 2 4356-8 ####[facility] LABCLIA [id number] [place] [address] [place] pH (U) 7.0 [pH] Normal 5.0-8.0 [facility] Comment on above: Order Comment: Speci men Type: URINE SPECIMENOrdering Facility: [facility] Address: [address] [place], [place] [address] Performed By: #### 2 4356-8 ####[facility] LABIA [id number] [place] [address] [place] Protein (U) [Mass/Vol] Negative Normal Negative [facility] Comment on above: Order Comment: Speci men Type: URINE SPECIMENOrdering Facility: [facility] Address: [address] [place], [place] [address] Performed By: #### 2 4356-8 ####[facility] LABIA [id number] [place] [address] [place] RBC LM.HPF (Urine sed) [#/Area] 0-3 /HPF Normal 0-3 /HPF [facility] Comment on above: Order Comment: Speci men Type: URINE SPECIMENOrdering Facility: [facility] Address: [address] [place], [place] [address] Performed By: #### 2 4356-8 ####[facility] LABIA [id number] [place] [address] [place] Specific gravity (U) [Rel density] 1.016 Normal 1.005-1.03 0 [facility] Comment on above: Order Comment: Speci men Type: URINE SPECIMENOrdering Facility: [facility] Address: [address] [place], [place] [address] Performed By: #### 2 4356-8 ####[facility] LABIA [id number] [place] [address] [place] Urobilinogen Ql (U) Negative Normal Negative [facility] Comment on above: Order Comment: Speci men Type: URINE SPECIMENOrdering Facility: [facility] Address: [address] [place], [place] [address] Performed By: #### 2 4356-8 ####[facility] [id number] [place] [address] [place] WBC LM.HPF (Urine sed) [#/Area] 0-5 /HPF Normal 0-5 /HPF [facility] Comment on above: Order Comment: Speci men Type: URINE SPECIMENOrdering Facility: [facility] Address: [address] [place] [address] Performed By: #### 2 4356-8 ####[facility] [id number] [place] [address] [place] XR CHEST 1V FRONTAL PORTon 0 08-17-2021 XR CHEST 1V FRONTAL PORT Normal [facility] CNPNon 08-13-2021 CNPN Normal [facility] CNPNon 08-12-2021 CNPN Normal [facility] CNPNon 08-11-2021 CNPN Normal [facility] ACTIVATED PTTon 08-08-2021 aPTT Coag (PPP) [Time] 29.9 s 23.0 - 32.4 sec [facility] CBC W Auto Differential pane l (Bld)on 08-08-2021 Basophils (Bld) [#/Vol] 10*3/uL Normal <0.11 C [facility] Comment on above: Order Comment: Speci men Type: BLOOD SPECIMENOrdering Facility: [facility] Address: [address] [place] [address] Performed By: #### 5 7021-8 ####[facility] [id number] [address] OF [place] Basophils/100 WBC (Bld) 0.3 % Normal C [facility] Comment on above: Order Comment: Speci men Type: BLOOD SPECIMENOrdering Facility: [facility] Address: [address] [place], [place] [address] Performed By: #### 5 7021-8 ####[facility] [id number] [place] [address] [place] Differential cell count method Nom (Bld) Auto Normal [facility] Comment on above: Order Comment: Speci men Type: BLOOD SPECIMENOrdering Facility: [facility] Address: [address] [place], [place] [address] Performed By: #### 5 7021-8 ####[facility] [id number] [place] [address] [place] Eosinophils (Bld) [#/Vol] 0.04 10*3/uL Normal <0.46 [facility] Comment on above: Order Comment: Speci men Type: BLOOD SPECIMENOrdering Facility: [facility] Address: [address] [place] [address] Performed By: #### 5 7021-8 ####[facility] [id number] [place] [address] [place] Eosinophils/100 WBC (Bld) 0.7 % Normal [facility] Comment on above: Order Comment: Speci men Type: BLOOD SPECIMENOrdering Facility: [facility] Address: [address] [place], [place] [address] Performed By: #### 5 7021-8 ####[facility] [id number] [place] [address] [place] Erythrocyte distribution width (RBC) [Ratio] 15.6 % High 11.5-15.0 [facility] Comment on above: Order Comment: Speci men Type: BLOOD SPECIMENOrdering Facility: [facility] Address: [address] [place], [place] [address] Performed By: #### 5 7021-8 ####[facility] [id number] [place] [address] [place] Hematocrit (Bld) [Volume fraction] 43.0 % Normal 39.0-51.0 [facility] Comment on above: Order Comment: Speci men Type: BLOOD SPECIMENOrdering Facility: [facility] Address: [address] [place], [place] [address] Performed By: #### 5 7021-8 ####[facility] [id number] [address] [place] Hemoglobin (Bld) [Mass/Vol] 14.6 g/dL Normal 13.0-17.0 [facility] Comment on above: Order Comment: Speci men Type: BLOOD SPECIMENOrdering Facility: [facility] Address: [address] [place] [address] Performed By: #### 5 7021-8 ####[facility] [id number] [place] [address] [place] [facility] IMMATURE GRAN % 0.3 % Normal [facility] Comment on above: Order Comment: Speci men Type: BLOOD SPECIMENOrdering Facility: [facility] Address: [address] [place] [address] Performed By: #### 5 7021-8 ####[facility] [id number] [place] [address] [place] [facility] IMMATURE GRAN ABS <0.03 Normal <0.10 [facility] Comment on above: Order Comment: Speci men Type: BLOOD SPECIMENOrdering Facility: [facility] Address: [address] [place] [address] Performed By: #### 5 7021-8 ####[facility] [id number] [place] [address] [place] Lymphocytes (Bld) [#/Vol] 1.61 10*3/uL Normal 1.00-4.00 [facility] Comment on above: Order Comment: Speci men Type: BLOOD SPECIMENOrdering Facility: [facility] Address: [address] [place] [address] Performed By: #### 5 7021-8 ####[facility] [id number] [address] Lymphocytes/100 WBC (Bld) 26.6 % Normal [facility] Comment on above: Order Comment: Speci men Type: BLOOD SPECIMENOrdering Facility: [facility] Address: [address] [place] [address] Performed By: #### 5 7021-8 ####[facility] [id number] [address] STATES OF [facility] MCH (RBC) [Entitic mass] 29.9 pg Normal 26.0-34.0 [facility] Comment on above: Order Comment: Speci men Type: BLOOD SPECIMENOrdering Facility: [facility] Address: [address] [place] [address] Performed By: #### 5 7021-8 ####[facility] [id number] [place] [address] [place] MCHC (RBC) [Mass/Vol] 34.0 g/dL Normal 30.5-36.0 [facility] Comment on above: Order Comment: Speci men Type: BLOOD SPECIMENOrdering Facility: [facility] Address: [address] [place], [place] [address] Performed By: #### 5 7021-8 ####[facility] [id number] [address] [place] MCV (RBC) [Entitic vol] 87.9 fL Normal 80.0-100.0 C [facility] Comment on above: Order Comment: Speci men Type: BLOOD SPECIMENOrdering Facility: [facility] Address: [address] [place], [place] [address] Performed By: #### 5 7021-8 ####[facility] [id number] [place] [address] [place] Monocytes (Bld) [#/Vol] 0.40 10*3/uL Normal <0.87 [facility] Comment on above: Order Comment: Speci men Type: BLOOD SPECIMENOrdering Facility: [facility] Address: [address] [place], [place] [address] Performed By: #### 5 7021-8 ####[facility] [id number] [place] [address] Monocytes/100 WBC (Bld) 6.6 % Normal [facility] Comment on above: Order Comment: Speci men Type: BLOOD SPECIMENOrdering Facility: [facility] Address: [address] [place], [place] [address] Performed By: #### 5 7021-8 ####[facility] [id number] [place] [address] [place] Neutrophils (Bld) [#/Vol] 3.97 10*3/uL Normal 1.45-7.50 [facility] Comment on above: Order Comment: Speci men Type: BLOOD SPECIMENOrdering Facility: [facility] Address: [address] [place], [place] [address] Performed By: #### 5 7021-8 ####[facility] [id number] [place] [address] Neutrophils/100 WBC (Bld) 65.5 % Normal [facility] Comment on above: Order Comment: Speci men Type: BLOOD SPECIMENOrdering Facility: [facility] Address: [address] [place], [place] [address] Performed By: #### 5 7021-8 ####[facility] [id number] [place] [address] [place] Nucleated RBC (Bld) [#/Vol] 10*3/uL Normal <0.01 [facility] Comment on above: Order Comment: Speci men Type: BLOOD SPECIMENOrdering Facility: [facility] Address: [address] [place], [place] [address] Performed By: #### 5 7021-8 ####[facility] [id number] [place] [address] [place] Nucleated RBC/100 WBC (Bld) [Ratio] 0.0 /100 WBC Normal [facility] Comment on above: Order Comment: Speci men Type: BLOOD SPECIMENOrdering Facility: [facility] Address: [address] [place] [address] Performed By: #### 5 7021-8 ####[facility] [id number] [place] [address] [place] Platelet mean volume (Bld) [Entitic vol] 10.1 fL Normal 9.0-12.7 [facility] Comment on above: Order Comment: Speci men Type: BLOOD SPECIMENOrdering Facility: [facility] Address: [address] [place] [address] Performed By: #### 5 7021-8 ####[facility] [id number] [place] [address] [place] Platelets (Bld) [#/Vol] 263 10*3/uL Normal 150-400 [facility] Comment on above: Order Comment: Speci men Type: BLOOD SPECIMENOrdering Facility: [facility] Address: [address] [place] [address] Performed By: #### 5 7021-8 ####[facility] [id number] [place] [address] [place] RBC (Bld) [#/Vol] 4.89 10*6/uL Normal 4.20-6.00 [facility] Comment on above: Order Comment: Speci men Type: BLOOD SPECIMENOrdering Facility: [facility] Address: [address] [place], [place] [address] Performed By: #### 5 7021-8 ####[facility] [id number] [place] [address] [place] WBC (Bld) [#/Vol] 6.06 10*3/uL Normal 3.70-11.00 [facility] Comment on above: Order Comment: Speci men Type: BLOOD SPECIMENOrdering Facility: [facility] Address: [address] [place] [address] [place] [address] Performed By: #### 5 7021-8 ####[facility] [id number] [address] STATES OF [facility] Abs Immature Gran <0.03 <0.10 k/uL [facility] Basophils (Bld) [#/Vol] 10*3/uL <0.11 k/uL [facility] Basophils/100 WBC (Bld) 0.3 % C [facility] Differential cell count method Nom (Bld) Auto [facility] Eosinophils (Bld) [#/Vol] 0.04 10*3/uL <0.46 k/uL [facility] Eosinophils/100 WBC (Bld) 0.7 % [facility] Erythrocyte distribution width (RBC) [Ratio] 15.6 % High 11.5 - 15.0 % [facility] Hematocrit (Bld) [Volume fraction] 43.0 % 39.0 - 51.0 % [facility] Hemoglobin (Bld) [Mass/Vol] 14.6 g/dL 13.0 - 17.0 g/dL [facility] Immature Gran % 0.3 % [facility] Lymphocytes (Bld) [#/Vol] 1.61 10*3/uL 1.00 - 4.00 k/uL [facility] Lymphocytes/100 WBC (Bld) 26.6 % [facility] MCH (RBC) [Entitic mass] 29.9 pg 26.0 - 34.0 pg [facility] MCHC (RBC) [Mass/Vol] 34.0 g/dL 30.5 - 36.0 g/dL [facility] MCV (RBC) [Entitic vol] 87.9 fL 80.0 - 100.0 fL [facility] Monocytes (Bld) [#/Vol] 0.40 10*3/uL <0.87 k/uL [facility] Monocytes/100 WBC (Bld) 6.6 % [facility] Neutrophils (Bld) [#/Vol] 3.97 10*3/uL 1.45 - 7.50 k/uL [facility] Neutrophils/100 WBC (Bld) 65.5 % [facility] Nucleated RBC (Bld) [#/Vol] 10*3/uL <0.01 k/uL [facility] Nucleated RBC/100 WBC (Bld) [Ratio] 0.0 /100 WBC [facility] Platelet mean volume (Bld) [Entitic vol] 10.1 fL 9.0 - 12.7 fL [facility] Platelets (Bld) [#/Vol] 263 10*3/uL 150 - 400 k/uL [facility] RBC (Bld) [#/Vol] 4.89 10*6/uL 4.20 - 6.00 m/uL [facility] WBC (Bld) [#/Vol] 6.06 10*3/uL 3.70 - 11.00 k/uL [facility] CNNURSEon 08-08-2021 CNNURSE Normal [facility] CNOVSPon 08-08-2021 CNOVSP Normal [facility] CNSWon 08-08-2021 CNSW Normal [facility] Comprehensive metabolic 2000 panelon 08-08-2021 Albumin [Mass/Vol] 4.2 g/dL Normal 3.9-4.9 [facility] Comment on above: Order Comment: Speci men Type: BLOOD SPECIMENOrdering Facility: [facility] Address: [address] [place] [address] Performed By: #### 2 4323-8, 308-1, ####[facility] [id number] [address] STATES OF [facility] ALP [Catalytic activity/Vol] 56 U/L Normal 38-113 [facility] Comment on above: Order Comment: Speci men Type: BLOOD SPECIMENOrdering Facility: [facility] Address: [address] [place], [place] [address] Performed By: #### 2 4323-8, 3084-1, ####[facility] [id number] [address] STATES OF [facility] ALT [Catalytic activity/Vol] 34 U/L Normal 10-54 [facility] Comment on above: Order Comment: Speci men Type: BLOOD SPECIMENOrdering Facility: [facility] Address: [address] [place], [place] [address] Performed By: #### 2 4323-8, 3083-1, ####[facility] [id number] [place] [address] [place] Anion gap [Moles/Vol] 10 mmol/L Normal 9-18 [facility] Comment on above: Order Comment: Speci men Type: BLOOD SPECIMENOrdering Facility: [facility] Address: [address] [place], [place] [address] Performed By: #### 2 4323-8, 3083-, ####[facility] [id number] [place] [address] [place] AST [Catalytic activity/Vol] 18 U/L Normal 14-40 [facility] Comment on above: Order Comment: Speci men Type: BLOOD SPECIMENOrdering Facility: [facility] Address: [address] [place], [place] [address] Performed By: #### 2 4323-8, 3083-03, ####[facility] [id number] [place] [address] [place] Bilirubin [Mass/Vol] 0.5 mg/dL Normal 0.2-1.3 [facility] Comment on above: Order Comment: Speci men Type: BLOOD SPECIMENOrdering Facility: [facility] Address: [address] [place], [place] [address] Performed By: #### 2 4323-8, 3083-, ####[facility] [id number] [place] [id number] [place] Calcium [Mass/Vol] 9.6 mg/dL Normal 8.5-10.2 [facility] Comment on above: Order Comment: Speci men Type: BLOOD SPECIMENOrdering Facility: [facility] Address: [address] [place], [place] [address] Performed By: #### 2 4323-8, 3083-, ####[facility] [id number] [place] [address] [place] Chloride [Moles/Vol] 103 mmol/L Normal 97-105 [facility] Comment on above: Order Comment: Speci men Type: BLOOD SPECIMENOrdering Facility: [facility] Address: [address] [place], [place] [address] Performed By: #### 2 4323-8, 3083-, ####[facility] [id number] [place] [address] [place] CO2 [Moles/Vol] 26 mmol/L Normal 22-30 [facility] Comment on above: Order Comment: Speci men Type: BLOOD SPECIMENOrdering Facility: [facility] Address: [address] [place], [place] [id number] Performed By: #### 2 4323-8, 3083-03, ####[facility] [id number] [place] [address] [place] Creatinine [Mass/Vol] 1.24 mg/dL High 0.73-1.22 [facility] Comment on above: Order Comment: Speci men Type: BLOOD SPECIMENOrdering Facility: [facility] Address: [address] [place], [place] [id number] Performed By: #### 2 4323-8, 3083-03, ####[facility] [id number] [place] [address] [place] OF POP ESTIMATED GLOMERULAR FILTRATION RATE 68 mL/min/1.73m??? Normal >=60 [facility] Comment on above: Order Comment: Speci men Type: BLOOD SPECIMENOrdering Facility: [facility] Address: [address] [place] [address] Result Comment: Laurita mated Glomerular Filtration Rate [...] actual GFR. Performed By: #### 2 4323-8, 308-1, ####[facility] [id number] [place] [address] [place] Glucose [Mass/Vol] 119 mg/dL High 74-99 [facility] Comment on above: Order Comment: Aaliyah gibson Type: BLOOD SPECIMENOrdering Facility: [facility] Address: [address] [place], [place] [address] Result Comment: The [place] Diabetes Association (ADA) provides guidance for cutoff [...] Standards of Medical Care in Diabetes 2016, [place] [employer]. Diabetes Care. 2016.39(Suppl 1). Performed By: #### 2 4323-8, 3084-1, ####[facility] [id number] [place] [address] [place] Potassium [Moles/Vol] 4.2 mmol/L Normal 3.7-5.1 [facility] Comment on above: Order Comment: Aaliyah gibson Type: BLOOD SPECIMENOrdering Facility: [facility] Address: [address] [place], [place] [address] Performed By: #### 2 4323-8, 3084-1, ####[facility] [id number] [place] [address] [place] Protein [Mass/Vol] 6.8 g/dL Normal 6.3-8.0 [facility] Comment on above: Order Comment: Speci men Type: BLOOD SPECIMENOrdering Facility: [facility] Address: [address] [place], [place] [address] Performed By: #### 2 4323-8, 308-1, ####[facility] [id number] [place] [address] [place] Sodium [Moles/Vol] 139 mmol/L Normal 136-144 [facility] Comment on above: Order Comment: Speci men Type: BLOOD SPECIMENOrdering Facility: [facility] Address: [address] [place], [place] [address] Performed By: #### 2 4323-8, 308-, ####[facility] [id number] [place] [address] [place] Urea nitrogen [Mass/Vol] 15 mg/dL Normal 9-24 [facility] Comment on above: Order Comment: Speci men Type: BLOOD SPECIMENOrdering Facility: [facility] Address: [address] [place], [place] [address] Performed By: #### 2 4323-8, 1, ####[facility] [id number] [place] [address] [place] Albumin [Mass/Vol] 4.2 g/dL 3.9 - 4.9 g/dL [facility] ALP [Catalytic activity/Vol] 56 U/L 38 - 113 U/L [facility] ALT [Catalytic activity/Vol] 34 U/L 10 - 54 U/L [facility] Anion gap [Moles/Vol] 10 mmol/L 9 - 18 mmol/L [facility] AST [Catalytic activity/Vol] 18 U/L 14 - 40 U/L [facility] Bilirubin [Mass/Vol] 0.5 mg/dL 0.2 - 1 .3 mg/dL [facility] Calcium [Mass/Vol] 9.6 mg/dL 8.5 - 10. 2 mg/dL [facility] Chloride [Moles/Vol] 103 mmol/L 97 - 10 5 mmol/L [facility] CO2 [Moles/Vol] 26 mmol/L 22 - 30 mmol/L [facility] Creatinine [Mass/Vol] 1.24 mg/dL High 0.73 - 1.22 mg/dL [facility] Estimated Glomerular Filtration Rate 68 mL/min/1.73m >=60 mL/min/1.7 3m [facility] Glucose [Mass/Vol] 119 mg/dL High 74 - 99 mg/dL [facility] Potassium [Moles/Vol] 4.2 mmol/L 3.7 - 5.1 mmol/L [facility] Protein [Mass/Vol] 6.8 g/dL 6.3 - 8.0 g/dL [facility] Sodium [Moles/Vol] 139 mmol/L 136 - 144 mmol/L [facility] Urea nitrogen [Mass/Vol] 15 mg/dL 9 - 24 mg/dL [facility] LD LACTATE DEHYDROon 022 LDH [Catalytic activity/Vol] 232 U/L High 135 - 225 U/L [facility] LDH SerPl-cCncon 08-08-2021 LDH [Catalytic activity/Vol] 232 U/L High 135-225 [facility] Comment on above: Order Comment: Speci men Type: BLOOD SPECIMENOrdering Facility: [facility] Address: [address] [place] [address] Performed By: #### 2 532-0 ####[facility] [id number] [place] [address] [place] MAGNESIUM BLDon 08-08-2021 Magnesium [Mass/Vol] 2.1 mg/dL 1.7 - 2 .3 mg/dL [facility] Magnesium SerPl-mCncon 08-08 Magnesium [Mass/Vol] 2.1 mg/dL Normal 1.7-2.3 [facility] Comment on above: Order Comment: Aaliyah gibson Type: BLOOD SPECIMENOrdering Facility: [facility] Address: [address] [place], [place] [address] Performed By: #### 2 4323-8, 3084-1, 30490-1 ####[facility] [id number] [address] STATES OF POP PHOSPHORUS INORGANICon 08-08 Phosphate [Mass/Vol] 4.1 mg/dL 2.7 - 4 .8 mg/dL [facility] PT panel Coag (PPP)on 2021 INR Coag (PPP) [Relative time] 1.0 {INR} Normal 0.9-1.3 [facility] Comment on above: Order Comment: Aaliyah gibson Type: BLOOD SPECIMENOrdering Facility: [facility] Address: [address] [place] [address] Result Comment: Constanza min K Antagonist (VKA) Therapeutic Range: INR 2 to 3 (Target INR of 2.5)Note: For patients treated with VKA drugs, such as warfarin, the [place] [employer] 2012 Guideline recommends [...] al. Chest 2012, 141:7S-47SNishimura RA, et al. [facility] 2017, 70: 252-289 Performed By: #### 3 4528-0, 33525-5 ####[facility] [id number] [address] STATES OF [place] PT Coag (PPP) [Time] 10.7 s Normal 9.7-13.0 [facility] Comment on above: Order Comment: Speci men Type: BLOOD SPECIMENOrdering Facility: [facility] Address: [address] [place] [address] Performed By: #### 3 4528-0, 39960-5 ####[facility] [id number] [place] [address] [place] INR Coag (PPP) [Relative time] 1.0 {INR} 0.9 - 1.3 [facility] PT Coag (PPP) [Time] 10.7 s 9.7 - 1 3.0 sec [facility] Phosphate [facility] 08-08 Phosphate [Mass/Vol] 4.1 mg/dL Normal 2.7-4.8 [facility] Comment on above: Order Comment: Speci men Type: BLOOD SPECIMENOrdering Facility: [facility] Address: [address] [place], [place] [address] Performed By: #### 2 777-1 ####[facility] [id number] STATES OF [place] URIC ACID BLOODon 08-08-2021 Urate [Mass/Vol] 7.5 mg/dL 4.0 - 8.1 mg/dL [facility] Urate [facility] Urate [Mass/Vol] 7.5 mg/dL Normal 4.0-8.1 [facility] Comment on above: Order Comment: Speci men Type: BLOOD SPECIMENOrdering Facility: [facility] Address: [address] [place] [address] Performed By: #### 2 4323-8, 3084-1, 41731-5 ####[facility] [id number] [place] [address] [place] aPTT PPPon 08-08-2021 aPTT Coag (PPP) [Time] 29.9 s Normal 23.0-32.4 [facility] Comment on above: Order Comment: Speci men Type: BLOOD SPECIMENOrdering Facility: [facility] Address: [address] [place] [address] Performed By: #### 3 4528-0, 88091-4 ####[facility] [id number] [place] [address] [place] CBC W Auto Differential pane l (Bld)on 08-06-2021 Basophils (Bld) [#/Vol] 0.03 10*3/uL Normal <0.11 [facility] Comment on above: Order Comment: Speci men Type: BLOOD SPECIMENOrdering Facility: [facility] Address: [address] [place] [address] Performed By: #### 5 7021-8 ####[facility] [id number] [place] [address] STATES OF [facility] Basophils/100 WBC (Bld) 0.5 % Normal [facility] Comment on above: Order Comment: Speci men Type: BLOOD SPECIMENOrdering Facility: [facility] Address: [address] [place] [address] Performed By: #### 5 7021-8 ####[facility] [id number] [place] [address] [place] OF [facility] Differential cell count method Nom (Bld) Auto Normal [facility] Comment on above: Order Comment: Speci men Type: BLOOD SPECIMENOrdering Facility: [facility] Address: [address] [place] [address] Performed By: #### 5 7021-8 ####[facility] [id number] [place] [address] [place] Eosinophils (Bld) [#/Vol] 0.05 10*3/uL Normal <0.46 [facility] Comment on above: Order Comment: Speci men Type: BLOOD SPECIMENOrdering Facility: [facility] Address: [address] [place], [place] [address] Performed By: #### 5 7021-8 ####[facility] [id number] [place] [address] [place] Eosinophils/100 WBC (Bld) 0.8 % Normal [facility] Comment on above: Order Comment: Speci men Type: BLOOD SPECIMENOrdering Facility: [facility] Address: [address] [place], [place] [address] Performed By: #### 5 7021-8 ####[facility] [place] [id number] [place] [address] [place] Erythrocyte distribution width (RBC) [Ratio] 15.7 % High 11.5-15.0 [facility] Comment on above: Order Comment: Speci men Type: BLOOD SPECIMENOrdering Facility: [facility] Address: [address] [place], [place] [address] Performed By: #### 5 7021-8 ####[facility] [place] [id number] [place] [address] [place] Hematocrit (Bld) [Volume fraction] 43.7 % Normal 39.0-51.0 [facility] Comment on above: Order Comment: Speci men Type: BLOOD SPECIMENOrdering Facility: [facility] Address: [address] [place], [place] [address] Performed By: #### 5 7021-8 ####[facility] [id number] [place] [address] [place] Hemoglobin (Bld) [Mass/Vol] 14.8 g/dL Normal 13.0-17.0 [facility] Comment on above: Order Comment: Speci men Type: BLOOD SPECIMENOrdering Facility: [facility] Address: [address] [place], [place] [address] Performed By: #### 5 7021-8 ####[facility] [id number] [address] IMMATURE GRAN % 0.5 % Normal [facility] Comment on above: Order Comment: Speci men Type: BLOOD SPECIMENOrdering Facility: [facility] Address: [address] [place] [address] Performed By: #### 5 7021-8 ####[facility] [id number] [place] [address] IMMATURE GRAN ABS 0.03 k/uL Normal <0.10 [facility] Comment on above: Order Comment: Speci men Type: BLOOD SPECIMENOrdering Facility: [facility] Address: [address] [place] [address] Performed By: #### 5 7021-8 ####[facility] [id number] [place] [address] STATES OF [facility] Lymphocytes (Bld) [#/Vol] 1.42 10*3/uL Normal 1.00-4.00 [facility] Comment on above: Order Comment: Speci men Type: BLOOD SPECIMENOrdering Facility: [facility] Address: [address] [place] [address] Performed By: #### 5 7021-8 ####[facility] [place] [id number] [place] [address] Lymphocytes/100 WBC (Bld) 23.2 % Normal [facility] Comment on above: Order Comment: Speci men Type: BLOOD SPECIMENOrdering Facility: [facility] Address: [address] [place] [address] Performed By: #### 5 7021-8 ####[facility] [place] [id number] [place] [address] [place] MCH (RBC) [Entitic mass] 29.9 pg Normal 26.0-34.0 [facility] Comment on above: Order Comment: Speci men Type: BLOOD SPECIMENOrdering Facility: [facility] Address: [address] [place], [place] [address] Performed By: #### 5 7021-8 ####[facility] [id number] [address] [place] MCHC (RBC) [Mass/Vol] 33.9 g/dL Normal 30.5-36.0 [facility] Comment on above: Order Comment: Speci men Type: BLOOD SPECIMENOrdering Facility: [facility] Address: [address] [place], [place] [address] Performed By: #### 5 7021-8 ####[facility] [id number] [place] [address] [place] MCV (RBC) [Entitic vol] 88.3 fL Normal 80.0-100.0 C [facility] Comment on above: Order Comment: Speci men Type: BLOOD SPECIMENOrdering Facility: [facility] Address: [address] [place], [place] [address] Performed By: #### 5 7021-8 ####[facility] [id number] [address] [place] Monocytes (Bld) [#/Vol] 0.50 10*3/uL Normal <0.87 [facility] Comment on above: Order Comment: Speci men Type: BLOOD SPECIMENOrdering Facility: [facility] Address: [address] [place], [place] [address] Performed By: #### 5 7021-8 ####[facility] [id number] [place] [address] Monocytes/100 WBC (Bld) 8.2 % Normal C [facility] Comment on above: Order Comment: Speci men Type: BLOOD SPECIMENOrdering Facility: [facility] Address: [address] [place], [place] [address] Performed By: #### 5 7021-8 ####[facility] [id number] [place] [address] [place] Neutrophils (Bld) [#/Vol] 4.08 10*3/uL Normal 1.45-7.50 [facility] Comment on above: Order Comment: Speci men Type: BLOOD SPECIMENOrdering Facility: [facility] Address: [address] [place], [place] [address] Performed By: #### 5 7021-8 ####[facility] [id number] [place] [address] [place] Neutrophils/100 WBC (Bld) 66.8 % Normal [facility] Comment on above: Order Comment: Speci men Type: BLOOD SPECIMENOrdering Facility: [facility] Address: [address] [place], [place] [address] Performed By: #### 5 7021-8 ####[facility] [id number] [place] [address] [place] Nucleated RBC (Bld) [#/Vol] 10*3/uL Normal <0.01 [facility] Comment on above: Order Comment: Speci men Type: BLOOD SPECIMENOrdering Facility: [facility] Address: [address] [place], [place] [address] Performed By: #### 5 7021-8 ####[facility] [id number] [place] [address] [place] Nucleated RBC/100 WBC (Bld) [Ratio] 0.0 /100 WBC Normal [facility] Comment on above: Order Comment: Speci men Type: BLOOD SPECIMENOrdering Facility: [facility] Address: [address] [place], [place] [address] Performed By: #### 5 7021-8 ####[facility] [id number] [place] [address] [place] Platelet mean volume (Bld) [Entitic vol] 10.2 fL Normal 9.0-12.7 [facility] Comment on above: Order Comment: Speci men Type: BLOOD SPECIMENOrdering Facility: [facility] Address: [address] [place], [place] [address] Performed By: #### 5 7021-8 ####[facility] [id number] [place] [address] [place] Platelets (Bld) [#/Vol] 262 10*3/uL Normal 150-400 [facility] Comment on above: Order Comment: Speci men Type: BLOOD SPECIMENOrdering Facility: [facility] Address: [address] [place], [place] [address] Performed By: #### 5 7021-8 ####[facility] [id number] [place] [address] [place] RBC (Bld) [#/Vol] 4.95 10*6/uL Normal 4.20-6.00 [facility] Comment on above: Order Comment: Speci men Type: BLOOD SPECIMENOrdering Facility: [facility] Address: [address] [place], [place] [address] Performed By: #### 5 7021-8 ####[facility] [id number] [place] [address] [place] WBC (Bld) [#/Vol] 6.11 10*3/uL Normal 3.70-11.00 [facility] Comment on above: Order Comment: Speci men Type: BLOOD SPECIMENOrdering Facility: [facility] Address: [address] [place], [place] [address] Performed By: #### 5 7021-8 ####[facility] [id number] [place] [address] [place] CNNURSEon 08-06-2021 CNNURSE Normal [facility] CNOVSPon 08-06-2021 CNOVSP Normal [facility] CT ABD/PEL W IVCONon 022 CT ABD/PEL W IVCON Normal [facility] Comprehensive metabolic 2000 panelon 08-06-2021 Albumin [Mass/Vol] 4.3 g/dL Normal 3.9-4.9 [facility] Comment on above: Order Comment: Speci men Type: BLOOD SPECIMENOrdering Facility: [facility] Address: [address] [place], [place] [address] Performed By: #### 2 4323-8, 308-1, ####[facility] [id number] [place] [address] [place] ALP [Catalytic activity/Vol] 64 U/L Normal 38-113 [facility] Comment on above: Order Comment: Speci men Type: BLOOD SPECIMENOrdering Facility: [facility] Address: [address] [place], [place] [address] Performed By: #### 2 4323-8, 3083-03, ####[facility] [id number] [place] [address] [place] ALT [Catalytic activity/Vol] 52 U/L Normal 10-54 [facility] Comment on above: Order Comment: Speci men Type: BLOOD SPECIMENOrdering Facility: [facility] Address: [address] [place], [place] [id number] Performed By: #### 2 4323-8, 30806-06, ####[facility] [id number] [place] [id number] [place] Anion gap [Moles/Vol] 9 mmol/L Normal 9-18 [facility] Comment on above: Order Comment: Speci men Type: BLOOD SPECIMENOrdering Facility: [facility] Address: [address] [place], [place] [phone] Performed By: #### 2 4323-8, 308-1, ####[facility] [id number] [place] [address] [place] AST [Catalytic activity/Vol] 46 U/L High 14-40 [facility] Comment on above: Order Comment: Speci men Type: BLOOD SPECIMENOrdering Facility: [facility] Address: [address] [place] [address] Performed By: #### 2 4323-8, 3083-, ####[facility] [id number] [place] [address] [place] Bilirubin [Mass/Vol] 0.3 mg/dL Normal 0.2-1.3 [facility] Comment on above: Order Comment: Speci men Type: BLOOD SPECIMENOrdering Facility: [facility] Address: [address] [place] [address] Performed By: #### 2 4323-8, 3083-03, ####[facility] [id number] [place] [address] [place] Calcium [Mass/Vol] 9.1 mg/dL Normal 8.5-10.2 [facility] Comment on above: Order Comment: Speci men Type: BLOOD SPECIMENOrdering Facility: [facility] Address: [address] [place], [place] [address] Performed By: #### 2 4323-8, 3083-03, ####[facility] [id number] [place] [id number] [place] Chloride [Moles/Vol] 107 mmol/L High 97-105 [facility] Comment on above: Order Comment: Speci men Type: BLOOD SPECIMENOrdering Facility: [facility] Address: [address] [place] [address] Performed By: #### 2 4323-8, 3083-1, ####[facility] [id number] [place] [address] [place] CO2 [Moles/Vol] 25 mmol/L Normal 22-30 [facility] Comment on above: Order Comment: Speci men Type: BLOOD SPECIMENOrdering Facility: [facility] Address: [address] [place] [address] Performed By: #### 2 4323-8, 308-1, ####[facility] [id number] [place] [address] [place] Creatinine [Mass/Vol] 1.24 mg/dL High 0.73-1.22 [facility] Comment on above: Order Comment: Speci men Type: BLOOD SPECIMENOrdering Facility: [facility] Address: [address] [place] [address] Performed By: #### 2 4323-8, 3083-03, ####[facility] [id number] [place] [address] [place] ESTIMATED GLOMERULAR FILTRATION RATE 68 mL/min/1.73m??? Normal >=60 [facility] Comment on above: Order Comment: Speci men Type: BLOOD SPECIMENOrdering Facility: [facility] Address: [address] [place] [address] Result Comment: Laurita mated Glomerular Filtration Rate [...] actual GFR. Performed By: #### 2 4323-8, 308-1, ####[facility] [id number] [place] [id number] [place] Glucose [Mass/Vol] 121 mg/dL High 74-99 [facility] Comment on above: Order Comment: Speci men Type: BLOOD SPECIMENOrdering Facility: [facility] Address: [address] [place], [place] [phone] Result Comment: The [place] [employer] (ADA) provides guidance for cutoff [...] Standards of Medical Care in Diabetes 2016, [place] [employer]. Diabetes Care. 2016.39(Suppl 1). Performed By: #### 2 4323-8, 3084-1, ####[facility] [id number] [place] [address] [place] Potassium [Moles/Vol] 4.6 mmol/L Normal 3.7-5.1 [facility] Comment on above: Order Comment: Aaliyah gibson Type: BLOOD SPECIMENOrdering Facility: [facility] Address: [address] [place], [place] [phone] Performed By: #### 2 4323-8, 3084-1, ####[facility] [id number] [place] [address] [place] Protein [Mass/Vol] 6.9 g/dL Normal 6.3-8.0 [facility] Comment on above: Order Comment: Aaliyah gibson Type: BLOOD SPECIMENOrdering Facility: [facility] Address: [address] [place], [place] [phone] Performed By: #### 2 4323-8, 3084-1, ####[facility] [id number] [place] [address] [place] Sodium [Moles/Vol] 141 mmol/L Normal 136-144 [facility] Comment on above: Order Comment: Speci men Type: BLOOD SPECIMENOrdering Facility: [facility] Address: [address] [place] [address] Performed By: #### 2 4323-8, 3084-1, 23272-4 ####[facility] [id number] [place] [address] [place] [facility] Urea nitrogen [Mass/Vol] 20 mg/dL Normal 9-24 [facility] Comment on above: Order Comment: Speci men Type: BLOOD SPECIMENOrdering Facility: [facility] Address: [address] [place] [address] Performed By: #### 2 4323-8, 3084-1, 46865-6 ####[facility] [id number] [address] LDH SerPl-cCncon 08-06-2021 LDH [Catalytic activity/Vol] 260 U/L High 135-225 [facility] Comment on above: Order Comment: Speci men Type: BLOOD SPECIMENOrdering Facility: [facility] Address: [address] [place] [address] Performed By: #### 2 532-0 ####[facility] [id number] [place] [address] [place] Magnesium SerPl-mCncon 08-06 Magnesium [Mass/Vol] 2.4 mg/dL High 1.7-2.3 [facility] Comment on above: Order Comment: Speci men Type: BLOOD SPECIMENOrdering Facility: [facility] Address: [address] [place], [place] [address] Performed By: #### 2 4323-8, 3084-1, 54836-9 ####[facility] [id number] [place] [address] [place] PT panel Coag (PPP)on 2021 INR Coag (PPP) [Relative time] 1.0 {INR} Normal 0.9-1.3 [facility] Comment on above: Order Comment: Aaliyah gibson Type: BLOOD SPECIMENOrdering Facility: [facility] Address: [address] [place] [address] Result Comment: Constanza min K Antagonist (VKA) Therapeutic Range: INR 2 to 3 (Target INR of 2.5)Note: For patients treated with VKA drugs, such as warfarin, the [place] [employer] 2012 Guideline recommends [...] al. Chest 2012, 141:7S-47SNishimura RA, et al. [facility] 2017, 70: 252-289 Performed By: #### 3 4528-0, 48826-4 ####[facility] LABIA [id number] [place] [address] [place] PT Coag (PPP) [Time] 10.7 s Normal 9.7-13.0 [facility] Comment on above: Order Comment: Aaliyah gibson Type: BLOOD SPECIMENOrdering Facility: [facility] Address: [address] [place] [address] Performed By: #### 3 4528-0, 11448-1 ####[facility] LABIA [id number] [place] [id number] [place] Phosphate SerPl-mCncon 08-06 Phosphate [Mass/Vol] 3.8 mg/dL Normal 2.7-4.8 [facility] Comment on above: Order Comment: Speci men Type: BLOOD SPECIMENOrdering Facility: [facility] Address: [address] [place] [address] Performed By: #### 2 777-1 ####[facility] [id number] [place] [address] [place] T3 FREE BLDon 08-06-2021 Free T3 [Mass/Vol] 2.9 pg/mL Normal 2.3-4.1 [facility] Comment on above: Order Comment: Speci men Type: BLOOD SPECIMENOrdering Facility: [facility] Address: [address] [place] [address] Performed By: #### F T4, FREET3 ####[facility] [id number] [place] [address] [place] T4 FREE/FREE THYROXon 2021 Free T4 [Mass/Vol] 1.0 ng/dL Normal 0.9-1.7 [facility] Comment on above: Order Comment: Speci men Type: BLOOD SPECIMENOrdering Facility: [facility] Address: [address] [place] [address] Performed By: #### F T4, FREET3 ####[facility] [id number] [place] [address] [place] TSH SerPl-aCncon 08-06-2021 TSH Qn 1.770 m[IU]/L Normal 0.270-4.20 0 [facility] Comment on above: Order Comment: Speci men Type: BLOOD SPECIMENOrdering Facility: [facility] Address: [address] [place] [address] Performed By: #### 3 016-3 ####[facility] [id number] [place] [address] [place] Urate SerPl-mCncon Urate [Mass/Vol] 7.2 mg/dL Normal 4.0-8.1 [facility] Comment on above: Order Comment: Speci men Type: BLOOD SPECIMENOrdering Facility: [facility] Address: [address] [place] [address] Performed By: #### 2 4323-8, 3084-1, 53192-1 ####[facility] [id number] [place] [address] [place] aPTT PPPon 08-06-2021 aPTT Coag (PPP) [Time] 28.8 s Normal 23.0-32.4 [facility] Comment on above: Order Comment: Speci men Type: BLOOD SPECIMENOrdering Facility: [facility] Address: [address] [place] [address] Performed By: #### 3 4528-0, 67073-9 ####[place] [id number] [address] [place] CNPNon 08-03-2021 CNPN Normal [facility] CNOVon 07-31-2021 CNOV Normal [facility] CNOV Normal [facility] NURSING PROGon 07-31-2021 NURSING PROG Normal [facility] CNPNon 07-30-2021 CNPN Normal [facility] CNPNon 07-29-2021 CNPN Normal [facility] CNPNon 07-25-2021 CNPN Normal [facility] CBC W Auto Differential pane l (Bld)on 07-24-2021 Basophils (Bld) [#/Vol] 0.04 10*3/uL Normal <0.11 [facility] Comment on above: Order Comment: Speci men Type: BLOOD SPECIMENOrdering Facility: [facility] Address: [address] [place] [address] Performed By: #### 5 7021-8 ####[facility] [id number] [address] [place] Basophils/100 WBC (Bld) 0.3 % Normal C [facility] Comment on above: Order Comment: Speci men Type: BLOOD SPECIMENOrdering Facility: [facility] Address: [address] [place], [place] [address] Performed By: #### 5 7021-8 ####[facility] [id number] [place] [address] [place] Differential cell count method Nom (Bld) Auto Normal [facility] Comment on above: Order Comment: Speci men Type: BLOOD SPECIMENOrdering Facility: [facility] Address: [address] [place], [place] [address] Performed By: #### 5 7021-8 ####[facility] [place] [id number] [place] [address] [place] Eosinophils (Bld) [#/Vol] 10*3/uL Normal <0.46 [facility] Comment on above: Order Comment: Speci men Type: BLOOD SPECIMENOrdering Facility: [facility] Address: [address] [place], [place] [address] Performed By: #### 5 7021-8 ####[facility] [place] [place] [id number] [place] [address] STATES OF [facility] Eosinophils/100 WBC (Bld) 0.1 % Normal [facility] Comment on above: Order Comment: Speci men Type: BLOOD SPECIMENOrdering Facility: [facility] Address: [address] [place], [place] [address] Performed By: #### 5 7021-8 ####[facility] [place] [place] [id number] [place] [address] [place] Erythrocyte distribution width (RBC) [Ratio] 15.9 % High 11.5-15.0 [facility] Comment on above: Order Comment: Speci men Type: BLOOD SPECIMENOrdering Facility: [facility] Address: [address] [place], [place] [address] Performed By: #### 5 7021-8 ####[facility] [id number] [address] Hematocrit (Bld) [Volume fraction] 43.2 % Normal 39.0-51.0 [facility] Comment on above: Order Comment: Speci men Type: BLOOD SPECIMENOrdering Facility: [facility] Address: [address] [place] [address] Performed By: #### 5 7021-8 ####[facility] [id number] [place] [address] OF [facility] Hemoglobin (Bld) [Mass/Vol] 14.7 g/dL Normal 13.0-17.0 [facility] Comment on above: Order Comment: Speci men Type: BLOOD SPECIMENOrdering Facility: [facility] Address: [address] [place] [address] Performed By: #### 5 7021-8 ####[facility] [id number] [place] [address] IMMATURE GRAN % 0.9 % Normal [facility] Comment on above: Order Comment: Speci men Type: BLOOD SPECIMENOrdering Facility: [facility] Address: [address] [place] [address] Performed By: #### 5 7021-8 ####[facility] [place] [place] [id number] [place] [address] IMMATURE GRAN ABS 0.10 k/uL High <0.10 [facility] Comment on above: Order Comment: Speci men Type: BLOOD SPECIMENOrdering Facility: [facility] Address: [address] [place] [address] Performed By: #### 5 7021-8 ####[facility] [place] [id number] [place] [address] OF POP Lymphocytes (Bld) [#/Vol] 2.16 10*3/uL Normal 1.00-4.00 [facility] Comment on above: Order Comment: Speci men Type: BLOOD SPECIMENOrdering Facility: [facility] Address: [address] [place] [address] Performed By: #### 5 7021-8 ####[facility] [id number] [place] [address] Lymphocytes/100 WBC (Bld) 18.7 % Normal [facility] Comment on above: Order Comment: Speci men Type: BLOOD SPECIMENOrdering Facility: [facility] Address: [address] [place] [address] Performed By: #### 5 7021-8 ####[facility] [id number] [place] [address] [place] MCH (RBC) [Entitic mass] 29.9 pg Normal 26.0-34.0 [facility] Comment on above: Order Comment: Speci men Type: BLOOD SPECIMENOrdering Facility: [facility] Address: [address] [place] [address] Performed By: #### 5 7021-8 ####[facility] [id number] [place] [address] [place] OF [facility] MCHC (RBC) [Mass/Vol] 34.0 g/dL Normal 30.5-36.0 [facility] Comment on above: Order Comment: Speci men Type: BLOOD SPECIMENOrdering Facility: [facility] Address: [address] [place], [place] [address] Performed By: #### 5 7021-8 ####[facility] [place] [id number] [place] [address] MCV (RBC) [Entitic vol] 88.0 fL Normal 80.0-100.0 C [facility] Comment on above: Order Comment: Speci men Type: BLOOD SPECIMENOrdering Facility: [facility] Address: [address] [place], [place] [address] Performed By: #### 5 7021-8 ####[facility] [place] [id number] [place] [address] OF [place] Monocytes (Bld) [#/Vol] 0.79 10*3/uL Normal <0.87 [facility] Comment on above: Order Comment: Speci men Type: BLOOD SPECIMENOrdering Facility: [facility] Address: [address] [place] [address] Performed By: #### 5 7021-8 ####[facility] [place] [id number] [place] [address] Monocytes/100 WBC (Bld) 6.8 % Normal [facility] Comment on above: Order Comment: Speci men Type: BLOOD SPECIMENOrdering Facility: [facility] Address: [address] [place], [place] [address] Performed By: #### 5 7021-8 ####[facility] [id number] [place] [address] [place] Neutrophils (Bld) [#/Vol] 8.45 10*3/uL High 1.45-7.50 [facility] Comment on above: Order Comment: Speci men Type: BLOOD SPECIMENOrdering Facility: [facility] Address: [address] [place], [place] [address] Performed By: #### 5 7021-8 ####[facility] [id number] [address] OF [facility] Neutrophils/100 WBC (Bld) 73.2 % Normal [facility] Comment on above: Order Comment: Speci men Type: BLOOD SPECIMENOrdering Facility: [facility] Address: [address] [place], [place] [address] Performed By: #### 5 7021-8 ####[facility] [place] [id number] [place] [address] [place] Nucleated RBC (Bld) [#/Vol] 10*3/uL Normal <0.01 [facility] Comment on above: Order Comment: Speci men Type: BLOOD SPECIMENOrdering Facility: [facility] Address: [address] [place] [address] Performed By: #### 5 7021-8 ####[facility] [place] [id number] [place] [address] [place] Nucleated RBC/100 WBC (Bld) [Ratio] 0.0 /100 WBC Normal [facility] Comment on above: Order Comment: Speci men Type: BLOOD SPECIMENOrdering Facility: [facility] Address: [address] [place] [address] Performed By: #### 5 7021-8 ####[facility] [place] [id number] [place] [address] [place] Platelet mean volume (Bld) [Entitic vol] 10.5 fL Normal 9.0-12.7 [facility] Comment on above: Order Comment: Speci men Type: BLOOD SPECIMENOrdering Facility: [facility] Address: [address] [place] [address] Performed By: #### 5 7021-8 ####[facility] [id number] [place] [address] [place] Platelets (Bld) [#/Vol] 241 10*3/uL Normal 150-400 [facility] Comment on above: Order Comment: Speci men Type: BLOOD SPECIMENOrdering Facility: [facility] Address: [address] [place], [place] [address] Performed By: #### 5 7021-8 ####[facility] [id number] [place] [address] [place] RBC (Bld) [#/Vol] 4.91 10*6/uL Normal 4.20-6.00 [facility] Comment on above: Order Comment: Speci men Type: BLOOD SPECIMENOrdering Facility: [facility] Address: [address] [place], [place] [address] Performed By: #### 5 7021-8 ####[facility] [id number] [place] [address] [place] WBC (Bld) [#/Vol] 11.55 10*3/uL High 3.70-11.00 [facility] Comment on above: Order Comment: Speci men Type: BLOOD SPECIMENOrdering Facility: [facility] Address: [address] [place], [place] [address] Performed By: #### 5 7021-8 ####[facility] [id number] [place] [address] [place] CNNURSEon 07-24-2021 CNNURSE Normal [facility] CNOVSPon 07-24-2021 CNOVSP Normal [facility] CNPNon 07-24-2021 CNPN Normal [facility] Comprehensive metabolic 2000 panelon 07-24-2021 Albumin [Mass/Vol] 4.0 g/dL Normal 3.9-4.9 [facility] Comment on above: Order Comment: Speci men Type: BLOOD SPECIMENOrdering Facility: [facility] Address: [address] [place], [place] [address] Performed By: #### 2 4323-8, 98595-8, 3083-1 ####[facility] [id number] [place] [address] [place] ALP [Catalytic activity/Vol] 64 U/L Normal 38-113 [facility] Comment on above: Order Comment: Speci men Type: BLOOD SPECIMENOrdering Facility: [facility] Address: [address] [place], [place] [address] Performed By: #### 2 4323-8, 00231-3, 3083-1 ####[facility] LABCLIA [id number] [place] [id number] [place] ALT [Catalytic activity/Vol] 36 U/L Normal 10-54 [facility] Comment on above: Order Comment: Speci men Type: BLOOD SPECIMENOrdering Facility: [facility] Address: [address] [place] [address] Performed By: #### 2 4323-8, 85354-9, 3083- ####[facility]IA [id number] [place] [address] [place] Anion gap [Moles/Vol] 11 mmol/L Normal 9-18 [facility] Comment on above: Order Comment: Speci men Type: BLOOD SPECIMENOrdering Facility: [facility] Address: [address] [place] [address] Performed By: #### 2 4323-8, , 3083-03 ####[facility] [id number] [address] [place] AST [Catalytic activity/Vol] 25 U/L Normal 14-40 [facility] Comment on above: Order Comment: Speci men Type: BLOOD SPECIMENOrdering Facility: [facility] Address: [address] [place] [address] Result Comment: Resu lts may be falsely increased due to interference from hemolysis. Suggest reorder as clinically indicated. Performed By: #### 2 4323-8, 50651-1, 3083-03 ####[facility]IA [id number] [place] [id number] [place] Bilirubin [Mass/Vol] 0.2 mg/dL Normal 0.2-1.3 [facility] Comment on above: Order Comment: Speci men Type: BLOOD SPECIMENOrdering Facility: [facility] Address: [address] [place] [address] Performed By: #### 2 4323-8, 21313-1, 3083-03 ####[facility] LABCLIA [id number] [address] [address] [place] Calcium [Mass/Vol] 9.2 mg/dL Normal 8.5-10.2 [facility] Comment on above: Order Comment: Speci men Type: BLOOD SPECIMENOrdering Facility: [facility] Address: [address] [place], [place] [address] Performed By: #### 2 4323-8, , 3083-03 ####[facility] LABCLIA [id number] [place] [address] [place] Chloride [Moles/Vol] 104 mmol/L Normal 97-105 [facility] Comment on above: Order Comment: Speci men Type: BLOOD SPECIMENOrdering Facility: [facility] Address: [address] [place], [place] [address] Performed By: #### 2 4323-8, , 3083-03 ####[facility] LABCLIA [id number] [place] [address] [place] CO2 [Moles/Vol] 26 mmol/L Normal 22-30 [facility] Comment on above: Order Comment: Speci men Type: BLOOD SPECIMENOrdering Facility: [facility] Address: [address] [place], [place] [address] Performed By: #### 2 4323-8, , 3083-03 ####[facility] LABCLIA [id number] [address] [address] [place] Creatinine [Mass/Vol] 1.03 mg/dL Normal 0.73-1.22 [facility] Comment on above: Order Comment: Speci men Type: BLOOD SPECIMENOrdering Facility: [facility] Address: [address] [place], [place] [address] Performed By: #### 2 4323-8, , 3083-03 ####[facility] LABCLIA [id number] [place] [address] [place] ESTIMATED GLOMERULAR FILTRATION RATE 85 mL/min/1.73m??? Normal >=60 [facility] Comment on above: Order Comment: Aaliyah gibson Type: BLOOD SPECIMENOrdering Facility: [facility] Address: [address] [place] [address] Result Comment: Laurita mated Glomerular Filtration Rate [...] actual GFR. Performed By: #### 2 4323-8, 44392-6, 3083- ####[facility] [id number] [place] [address] [place] Glucose [Mass/Vol] 103 mg/dL High 74-99 [facility] Comment on above: Order Comment: Aaliyah gibson Type: BLOOD SPECIMENOrdering Facility: [facility] Address: [address] [place] [address] Result Comment: The [place] [employer] (ADA) provides guidance for cutoff [...] Standards of Medical Care in Diabetes 2016, [place] [employer]. Diabetes Care. 2016.39(Suppl 1). Performed By: #### 2 4323-8, 93340-3, 4-1 ####[facility] LABIA [id number] [place] [address] [place] Potassium [Moles/Vol] 4.1 mmol/L Normal 3.7-5.1 [facility] Comment on above: Order Comment: Speci men Type: BLOOD SPECIMENOrdering Facility: [facility] Address: [address] [place] [address] Performed By: #### 2 4323-8, 35621-2, 3083- ####[facility] LABCLIA [id number] [place] [address] [place] Protein [Mass/Vol] 6.6 g/dL Normal 6.3-8.0 [facility] Comment on above: Order Comment: Speci men Type: BLOOD SPECIMENOrdering Facility: [facility] Address: [address] [place] [address] Performed By: #### 2 432-8, , 3083-03 ####[facility] LABCLIA [id number] [place] [address] [place] Sodium [Moles/Vol] 141 mmol/L Normal 136-144 [facility] Comment on above: Order Comment: Speci men Type: BLOOD SPECIMENOrdering Facility: [facility] Address: [address] [place] [address] Performed By: #### 2 4323-8, , 3083-03 ####[facility] LABCLIA [id number] [place] [address] [place] Urea nitrogen [Mass/Vol] 22 mg/dL Normal 9-24 [facility] Comment on above: Order Comment: Speci men Type: BLOOD SPECIMENOrdering Facility: [facility] Address: [address] [place], [place] [address] Performed By: #### 2 4323-8, , 3083- ####[facility] LABCLIA [id number] [place] [id number] [place] LDH SerPl-cCncon 07-24-2021 LDH [Catalytic activity/Vol] 217 U/L Normal 135-225 [facility] Comment on above: Order Comment: Aaliyah gibson Type: BLOOD SPECIMENOrdering Facility: [facility] Address: [address] [place] [address] Performed By: #### 2 532-0 ####[facility] [id number] [address] Magnesium SerPl-mCncon 07-24 Magnesium [Mass/Vol] 2.3 mg/dL Normal 1.7-2.3 [facility] Comment on above: Order Comment: Aaliyah gibson Type: BLOOD SPECIMENOrdering Facility: [facility] Address: [address] [place] [address] Performed By: #### 2 4323-8, 19429-2, 3084-1 ####[facility] LABIA [id number] [address] PT panel Coag (PPP)on 2021 INR Coag (PPP) [Relative time] 1.0 {INR} Normal 0.9-1.3 [facility] Comment on above: Order Comment: Aaliyah gibson Type: BLOOD SPECIMENOrdering Facility: [facility] Address: [address] [place] [address] Result Comment: Constanza min K Antagonist (VKA) Therapeutic Range: INR 2 to 3 (Target INR of 2.5)Note: For patients treated with VKA drugs, such as warfarin, the [place] [employer] 2012 Guideline recommends [...] al. Chest 2012, 141:7S-47SNishimura RA, et al. [facility] 2017, 70: 252-289 Performed By: #### 3 4528-0, 18081-4 ####[facility] LABCLIA [id number] [place] [address] [place] PT Coag (PPP) [Time] 10.5 s Normal 9.7-13.0 [facility] Comment on above: Order Comment: Speci men Type: BLOOD SPECIMENOrdering Facility: [facility] Address: [address] [place] [address] Performed By: #### 3 4528-0, 57872-7 ####[facility] LABCLIA [id number] [place] [address] [place] Phosphate SerPl-mCncon 07-24 Phosphate [Mass/Vol] 3.1 mg/dL Normal 2.7-4.8 [facility] Comment on above: Order Comment: Speci men Type: BLOOD SPECIMENOrdering Facility: [facility] Address: [address] [place] [address] Performed By: #### 2 777-1 ####[facility] LABIA [id number] [place] [address] [place] Urate SerPl-mCncon Urate [Mass/Vol] 6.4 mg/dL Normal 4.0-8.1 [facility] Comment on above: Order Comment: Speci men Type: BLOOD SPECIMENOrdering Facility: [facility] Address: [address] [place] [address] Performed By: #### 2 4323-8, 46911-9, 3084-1 ####[facility] LABCLIA [id number] [place] [address] [place] aPTT PPPon 07-24-2021 aPTT Coag (PPP) [Time] 27.5 s Normal 23.0-32.4 [facility] Comment on above: Order Comment: Speci men Type: BLOOD SPECIMENOrdering Facility: [facility] Address: [address] [place] [address] Performed By: #### 3 4528-0, 54620-4 ####[place] [id number] [place] [address] [place] CNPNon 07-23-2021 CNPN Normal [facility] ACTIVATED PTTon 07-21-2021 aPTT Coag (PPP) [Time] 29.1 s 23.0 - 32.4 sec [facility] CBC W Auto Differential pane l (Bld)on 07-21-2021 Basophils (Bld) [#/Vol] 0.04 10*3/uL Normal <0.11 [facility] Comment on above: Order Comment: Speci men Type: BLOOD SPECIMENOrdering Facility: [facility] Address: [address] [place] [address] Performed By: #### 5 7021-8 ####[facility] [id number] [place] [address] [place] Basophils/100 WBC (Bld) 0.5 % Normal C [facility] Comment on above: Order Comment: Speci men Type: BLOOD SPECIMENOrdering Facility: [facility] Address: [address] [place], [place] [id number] Performed By: #### 5 7021-8 ####[facility] [id number] [place] Differential cell count method Nom (Bld) Auto Normal [facility] Comment on above: Order Comment: Speci men Type: BLOOD SPECIMENOrdering Facility: [facility] Address: [address] [place] [address] Performed By: #### 5 7021-8 ####[facility] [id number] [place] [address] [place] Eosinophils (Bld) [#/Vol] 0.05 10*3/uL Normal <0.46 [facility] Comment on above: Order Comment: Speci men Type: BLOOD SPECIMENOrdering Facility: [facility] Address: [address] [place] [address] Performed By: #### 5 7021-8 ####[facility] [id number] [place] [address] [place] Eosinophils/100 WBC (Bld) 0.7 % Normal [facility] Comment on above: Order Comment: Speci men Type: BLOOD SPECIMENOrdering Facility: [facility] Address: [address] [place] [address] Performed By: #### 5 7021-8 ####[facility] [id number] [place] [address] [place] Erythrocyte distribution width (RBC) [Ratio] 15.5 % High 11.5-15.0 [facility] Comment on above: Order Comment: Speci men Type: BLOOD SPECIMENOrdering Facility: [facility] Address: [address] [place] [address] Performed By: #### 5 7021-8 ####[facility] [id number] [place] [address] [place] Hematocrit (Bld) [Volume fraction] 45.5 % Normal 39.0-51.0 [facility] Comment on above: Order Comment: Speci men Type: BLOOD SPECIMENOrdering Facility: [facility] Address: [address] [place] [address] Performed By: #### 5 7021-8 ####[facility] [id number] [place] [address] [place] Hemoglobin (Bld) [Mass/Vol] 15.1 g/dL Normal 13.0-17.0 [facility] Comment on above: Order Comment: Speci men Type: BLOOD SPECIMENOrdering Facility: [facility] Address: [address] [place] [address] Performed By: #### 5 7021-8 ####[facility] [id number] [place] [address] STATES OF [facility] IMMATURE GRAN % 0.8 % Normal [facility] Comment on above: Order Comment: Speci men Type: BLOOD SPECIMENOrdering Facility: [facility] Address: [address] [place] [address] Performed By: #### 5 7021-8 ####[facility] [id number] [place] [address] STATES OF [facility] IMMATURE GRAN ABS 0.06 k/uL Normal <0.10 [facility] Comment on above: Order Comment: Speci men Type: BLOOD SPECIMENOrdering Facility: [facility] Address: [address] [place], [place] [address] Performed By: #### 5 7021-8 ####[facility] [id number] [place] [address] Lymphocytes (Bld) [#/Vol] 2.22 10*3/uL Normal 1.00-4.00 [facility] Comment on above: Order Comment: Speci men Type: BLOOD SPECIMENOrdering Facility: [facility] Address: [address] [place], [place] [address] Performed By: #### 5 7021-8 ####[facility] [id number] [place] [address] Lymphocytes/100 WBC (Bld) 28.9 % Normal [facility] Comment on above: Order Comment: Speci men Type: BLOOD SPECIMENOrdering Facility: [facility] Address: [address] [place], [place] [address] Performed By: #### 5 7021-8 ####[facility] [id number] [address] [place] [facility] MCH (RBC) [Entitic mass] 30.1 pg Normal 26.0-34.0 [facility] Comment on above: Order Comment: Speci men Type: BLOOD SPECIMENOrdering Facility: [facility] Address: [address] [place] [address] Performed By: #### 5 7021-8 ####[facility] [id number] [place] [address] MCHC (RBC) [Mass/Vol] 33.2 g/dL Normal 30.5-36.0 [facility] Comment on above: Order Comment: Speci men Type: BLOOD SPECIMENOrdering Facility: [facility] Address: [address] [place] [address] Performed By: #### 5 7021-8 ####[facility] [id number] [place] [address] MCV (RBC) [Entitic vol] 90.6 fL Normal 80.0-100.0 [facility] Comment on above: Order Comment: Speci men Type: BLOOD SPECIMENOrdering Facility: [facility] Address: [address] [place] [address] Performed By: #### 5 7021-8 ####[facility] [id number] [place] [address] Monocytes (Bld) [#/Vol] 0.52 10*3/uL Normal <0.87 [facility] Comment on above: Order Comment: Speci men Type: BLOOD SPECIMENOrdering Facility: [facility] Address: [address] [place] [address] Performed By: #### 5 7021-8 ####[facility] [id number] [address] [address] [place] Monocytes/100 WBC (Bld) 6.8 % Normal [facility] Comment on above: Order Comment: Speci men Type: BLOOD SPECIMENOrdering Facility: [facility] Address: [address] [place] [address] Performed By: #### 5 7021-8 ####[facility] [id number] [place] [address] [place] Neutrophils (Bld) [#/Vol] 4.79 10*3/uL Normal 1.45-7.50 [facility] Comment on above: Order Comment: Speci men Type: BLOOD SPECIMENOrdering Facility: [facility] Address: [address] [place] [address] Performed By: #### 5 7021-8 ####[facility] [id number] [place] [address] [place] Neutrophils/100 WBC (Bld) 62.3 % Normal [facility] Comment on above: Order Comment: Speci men Type: BLOOD SPECIMENOrdering Facility: [facility] Address: [address] [place], [place] [address] Performed By: #### 5 7021-8 ####[facility] [id number] [place] [address] [place] Nucleated RBC (Bld) [#/Vol] 10*3/uL Normal <0.01 [facility] Comment on above: Order Comment: Speci men Type: BLOOD SPECIMENOrdering Facility: [facility] Address: [address] [place], [place] [address] Performed By: #### 5 7021-8 ####[facility] [id number] [place] [address] [place] Nucleated RBC/100 WBC (Bld) [Ratio] 0.0 /100 WBC Normal [facility] Comment on above: Order Comment: Speci men Type: BLOOD SPECIMENOrdering Facility: [facility] Address: [address] [place], [place] [address] Performed By: #### 5 7021-8 ####[facility] [id number] [place] [address] Platelet mean volume (Bld) [Entitic vol] 10.8 fL Normal 9.0-12.7 [facility] Comment on above: Order Comment: Speci men Type: BLOOD SPECIMENOrdering Facility: [facility] Address: [address] [place], [place] [address] Performed By: #### 5 7021-8 ####[facility] [id number] [place] [address] [place] Platelets (Bld) [#/Vol] 245 10*3/uL Normal 150-400 [facility] Comment on above: Order Comment: Speci men Type: BLOOD SPECIMENOrdering Facility: [facility] Address: [address] [place], [place] [address] Performed By: #### 5 7021-8 ####[facility] [id number] [place] [address] [place] RBC (Bld) [#/Vol] 5.02 10*6/uL Normal 4.20-6.00 [facility] Comment on above: Order Comment: Speci men Type: BLOOD SPECIMENOrdering Facility: [facility] Address: [address] [place] [address] Performed By: #### 5 7021-8 ####[facility] [id number] [place] [address] [place] WBC (Bld) [#/Vol] 7.68 10*3/uL Normal 3.70-11.00 [facility] Comment on above: Order Comment: Speci men Type: BLOOD SPECIMENOrdering Facility: [facility] Address: [address] [place], [place] [address] Performed By: #### 5 7021-8 ####[facility] [id number] [place] [address] [place] Abs Immature Gran 0.06 k/uL <0.10 k/uL [facility] Basophils (Bld) [#/Vol] 0.04 10*3/uL <0.11 k/uL [facility] Basophils/100 WBC (Bld) 0.5 % C [facility] Differential cell count method Nom (Bld) Auto [facility] Eosinophils (Bld) [#/Vol] 0.05 10*3/uL <0.46 k/uL [facility] Eosinophils/100 WBC (Bld) 0.7 % [facility] Erythrocyte distribution width (RBC) [Ratio] 15.5 % High 11.5 - 15.0 % [facility] Hematocrit (Bld) [Volume fraction] 45.5 % 39.0 - 51.0 % [facility] Hemoglobin (Bld) [Mass/Vol] 15.1 g/dL 13.0 - 17.0 g/dL [facility] Immature Gran % 0.8 % [facility] Lymphocytes (Bld) [#/Vol] 2.22 10*3/uL 1.00 - 4.00 k/uL [facility] Lymphocytes/100 WBC (Bld) 28.9 % [facility] MCH (RBC) [Entitic mass] 30.1 pg 26.0 - 34.0 pg [facility] MCHC (RBC) [Mass/Vol] 33.2 g/dL 30.5 - 36.0 g/dL [facility] MCV (RBC) [Entitic vol] 90.6 fL 80.0 - 100.0 fL [facility] Monocytes (Bld) [#/Vol] 0.52 10*3/uL <0.87 k/uL [facility] Monocytes/100 WBC (Bld) 6.8 % C [facility] Neutrophils (Bld) [#/Vol] 4.79 10*3/uL 1.45 - 7.50 k/uL [facility] Neutrophils/100 WBC (Bld) 62.3 % [facility] Nucleated RBC (Bld) [#/Vol] 10*3/uL <0.01 k/uL [facility] Nucleated RBC/100 WBC (Bld) [Ratio] 0.0 /100 WBC [facility] Platelet mean volume (Bld) [Entitic vol] 10.8 fL 9.0 - 12.7 fL [facility] Platelets (Bld) [#/Vol] 245 10*3/uL 150 - 400 k/uL [facility] RBC (Bld) [#/Vol] 5.02 10*6/uL 4.20 - 6.00 m/uL [facility] WBC (Bld) [#/Vol] 7.68 10*3/uL 3.70 - 11.00 k/uL [facility] CNNURSEon 07-21-2021 CNNURSE Normal [facility] CNPNon 07-21-2021 CNPN Normal [facility] CT CHEST W IVCONon CT CHEST W IVCON Normal [facility] Comprehensive metabolic 2000 panelon 07-21-2021 Albumin [Mass/Vol] 4.0 g/dL Normal 3.9-4.9 [facility] Comment on above: Order Comment: Speci men Type: BLOOD SPECIMENOrdering Facility: [facility] Address: [address] [place] [address] Performed By: #### 1 9123-9, 09458-9, 3084-1 ####[facility] [id number] [place] [address] [place] [facility] ALP [Catalytic activity/Vol] 57 U/L Normal 38-113 [facility] Comment on above: Order Comment: Speci men Type: BLOOD SPECIMENOrdering Facility: [facility] Address: [address] [place], [place] [phone] Performed By: #### 1 9123-9, 66869-2, 3084-1 ####[facility] [id number] [place] [address] ALT [Catalytic activity/Vol] 26 U/L Normal 10-54 [facility] Comment on above: Order Comment: Speci men Type: BLOOD SPECIMENOrdering Facility: [facility] Address: [address] [place] [address] Performed By: #### 1 9123-9, 29415-0, 3084-1 ####[facility] [id number] [place] [address] [place] Anion gap [Moles/Vol] 10 mmol/L Normal 9-18 [facility] Comment on above: Order Comment: Speci men Type: BLOOD SPECIMENOrdering Facility: [facility] Address: [address] [place], [place] [address] Performed By: #### 1 9123-9, 17159-5, 3084-1 ####[facility] [id number] [place] [address] [place] AST [Catalytic activity/Vol] 18 U/L Normal 14-40 [facility] Comment on above: Order Comment: Speci men Type: BLOOD SPECIMENOrdering Facility: [facility] Address: [address] [place], [place] [address] Performed By: #### 1 9123-9, 32093-0, 3084-1 ####[facility] [id number] [place] [address] [place] Bilirubin [Mass/Vol] 0.5 mg/dL Normal 0.2-1.3 [facility] Comment on above: Order Comment: Speci men Type: BLOOD SPECIMENOrdering Facility: [facility] Address: [address] [place], [place] [address] Performed By: #### 1 9123-9, 61012-2, 3084-1 ####[facility] [id number] [place] [address] [place] Calcium [Mass/Vol] 9.4 mg/dL Normal 8.5-10.2 [facility] Comment on above: Order Comment: Speci men Type: BLOOD SPECIMENOrdering Facility: [facility] Address: [address] [place], [place] [address] Performed By: #### 1 9123-9, 97598-2, 3084-1 ####[facility] [id number] [place] [address] [place] Chloride [Moles/Vol] 102 mmol/L Normal 97-105 [facility] Comment on above: Order Comment: Speci men Type: BLOOD SPECIMENOrdering Facility: [facility] Address: [address] [place] [address] Performed By: #### 1 9123-9, 03854-4, 3084-1 ####[facility] [id number] [place] [address] [place] CO2 [Moles/Vol] 28 mmol/L Normal 22-30 [facility] Comment on above: Order Comment: Speci men Type: BLOOD SPECIMENOrdering Facility: [facility] Address: [address] [place] [address] Performed By: #### 1 9123-9, 52259-5, 3084-1 ####[facility] [id number] [place] [address] [place] Creatinine [Mass/Vol] 1.12 mg/dL Normal 0.73-1.22 [facility] Comment on above: Order Comment: Speci men Type: BLOOD SPECIMENOrdering Facility: [facility] Address: [address] [place] [address] Performed By: #### 1 9123-9, 60395-8, 3084-1 ####[facility] [id number] [place] [address] [place] ESTIMATED GLOMERULAR FILTRATION RATE 77 mL/min/1.73m??? Normal >=60 [facility] Comment on above: Order Comment: Speci men Type: BLOOD SPECIMENOrdering Facility: [facility] Address: [address] [place], [place] [phone] Result Comment: Laurita mated Glomerular Filtration Rate [...] actual GFR. Performed By: #### 1 9123-9, 62619-6, 3083- ####[facility] [id number] [place] [address] [place] Glucose [Mass/Vol] 114 mg/dL High 74-99 [facility] Comment on above: Order Comment: Aaliyah gibson Type: BLOOD SPECIMENOrdering Facility: [facility] Address: [address] [address] Result Comment: The [place] [employer] (ADA) provides guidance for cutoff [...] Standards of Medical Care in Diabetes 2016, [place] [employer]. Diabetes Care. 2016.39(Suppl 1). Performed By: #### 1 9123-9, 87154-8, 3083-03 ####[facility] [id number] [place] [address] [place] Potassium [Moles/Vol] 3.5 mmol/L Low 3.7-5.1 [facility] Comment on above: Order Comment: Aaliyah gibson Type: BLOOD SPECIMENOrdering Facility: [facility] Address: [address] [phone] Performed By: #### 1 9123-9, 85452-0, 3083- ####[facility] [id number] [place] [address] [place] Protein [Mass/Vol] 6.8 g/dL Normal 6.3-8.0 [facility] Comment on above: Order Comment: Speci men Type: BLOOD SPECIMENOrdering Facility: [facility] Address: [address] [place] [address] Performed By: #### 1 9123-9, 75273-4, 3084-1 ####[facility] [id number] [place] [address] [place] Sodium [Moles/Vol] 140 mmol/L Normal 136-144 [facility] Comment on above: Order Comment: Speci men Type: BLOOD SPECIMENOrdering Facility: [facility] Address: [address] [place] [address] Performed By: #### 1 9123-9, 08337-2, 3084-1 ####[facility] [id number] [place] [address] [place] Urea nitrogen [Mass/Vol] 20 mg/dL Normal 9-24 [facility] Comment on above: Order Comment: Speci men Type: BLOOD SPECIMENOrdering Facility: [facility] Address: [address] [place] [address] Performed By: #### 1 9123-9, 27732-3, 3084-1 ####[facility] [id number] [place] [address] [place] Albumin [Mass/Vol] 4.0 g/dL 3.9 - 4.9 g/dL [facility] ALP [Catalytic activity/Vol] 57 U/L 38 - 113 U/L [facility] ALT [Catalytic activity/Vol] 26 U/L 10 - 54 U/L [facility] Anion gap [Moles/Vol] 10 mmol/L 9 - 18 mmol/L [facility] AST [Catalytic activity/Vol] 18 U/L 14 - 40 U/L [facility] Bilirubin [Mass/Vol] 0.5 mg/dL 0.2 - 1 .3 mg/dL [facility] Calcium [Mass/Vol] 9.4 mg/dL 8.5 - 10. 2 mg/dL [facility] Chloride [Moles/Vol] 102 mmol/L 97 - 10 5 mmol/L [facility] CO2 [Moles/Vol] 28 mmol/L 22 - 30 mmol/L [facility] Creatinine [Mass/Vol] 1.12 mg/dL 0.73 - 1.22 mg/dL [facility] Estimated Glomerular Filtration Rate 77 mL/min/1.73m >=60 mL/min/1.7 3m [facility] Glucose [Mass/Vol] 114 mg/dL High 74 - 99 mg/dL [facility] Potassium [Moles/Vol] 3.5 mmol/L Low 3.7 - 5.1 mmol/L [facility] Protein [Mass/Vol] 6.8 g/dL 6.3 - 8.0 g/dL [facility] Sodium [Moles/Vol] 140 mmol/L 136 - 144 mmol/L [facility] Urea nitrogen [Mass/Vol] 20 mg/dL 9 - 24 mg/dL [facility] LD LACTATE DEHYDROon 022 LDH [Catalytic activity/Vol] 201 U/L 135 - 225 U/L [facility] LDH SerPl-cCncon 07-21-2021 LDH [Catalytic activity/Vol] 201 U/L Normal 135-225 [facility] Comment on above: Order Comment: Speci men Type: BLOOD SPECIMENOrdering Facility: [facility] Address: [address] [place] [address] Performed By: #### 2 532-0 ####[facility] [id number] [place] [address] [place] MAGNESIUM BLDon 07-21-2021 Magnesium [Mass/Vol] 2.1 mg/dL 1.7 - 2 .3 mg/dL [facility] MRI BRAIN WO/W IVCONon 07-21 MRI BRAIN WO/W IVCON Normal [facility] Magnesium SerPl-mCncon 07-21 Magnesium [Mass/Vol] 2.1 mg/dL Normal 1.7-2.3 [facility] Comment on above: Order Comment: Aaliyah gibson Type: BLOOD SPECIMENOrdering Facility: [facility] Address: [address] [place], [place] [phone] Performed By: #### 1 9123-9, 40496-0, 3084-1 ####[facility] [id number] [place] [address] [place] PHOSPHORUS INORGANICon 07-21 Phosphate [Mass/Vol] 3.9 mg/dL 2.7 - 4 .8 mg/dL [facility] PT panel Coag (PPP)on 2021 INR Coag (PPP) [Relative time] 1.0 {INR} Normal 0.9-1.3 [facility] Comment on above: Order Comment: Aaliyah gibson Type: BLOOD SPECIMENOrdering Facility: [facility] Address: [address] [place] [address] Result Comment: Constanza min K Antagonist (VKA) Therapeutic Range: INR 2 to 3 (Target INR of 2.5)Note: For patients treated with VKA drugs, such as warfarin, the [place] [employer] 2012 Guideline recommends [...] 70: 252-289 Performed By: #### 3 4528-0, 84093-4 ####[facility] [id number] [place] [address] [place] PT Coag (PPP) [Time] 10.9 s Normal 9.7-13.0 [facility] Comment on above: Order Comment: Speci men Type: BLOOD SPECIMENOrdering Facility: [facility] Address: [address] [place] [address] Performed By: #### 3 4528-0, 52606-3 ####[facility] [id number] [place] [address] [place] INR Coag (PPP) [Relative time] 1.0 {INR} 0.9 - 1.3 [facility] PT Coag (PPP) [Time] 10.9 s 9.7 - 1 3.0 sec [facility] Phosphate SerPl-mCncon 07-21 Phosphate [Mass/Vol] 3.9 mg/dL Normal 2.7-4.8 [facility] Comment on above: Order Comment: Speci men Type: BLOOD SPECIMENOrdering Facility: [facility] Address: [address] [place], [place] [address] Performed By: #### 2 777-1 ####[facility] [id number] [place] [address] [place] T3 FREE BLDon 07-21-2021 Free T3 [Mass/Vol] 2.8 pg/mL Normal 2.3-4.1 [facility] Comment on above: Order Comment: Speci men Type: BLOOD SPECIMENOrdering Facility: [facility] Address: [address] [place], [place] [address] Performed By: #### F T4, FREET3 ####[facility] [id number] [place] [address] [place] T4 FREE/FREE THYROXon 2021 Free T4 [Mass/Vol] 1.1 ng/dL Normal 0.9-1.7 [facility] Comment on above: Order Comment: Speci men Type: BLOOD SPECIMENOrdering Facility: [facility] Address: [address] [place], [place] [address] Performed By: #### F T4, FREET3 ####[facility]IA [id number] [place] [address] [place] TSH BLDon 07-21-2021 TSH Qn 2.120 m[IU]/L 0.270 - 4.200 mIU/L [facility] TSH SerPl-aCncon 07-21-2021 TSH Qn 2.120 m[IU]/L Normal 0.270-4.20 0 [facility] Comment on above: Order Comment: Speci men Type: BLOOD SPECIMENOrdering Facility: [facility] Address: [address] [place] [address] Performed By: #### 3 016-3 ####[facility] [id number] [address] [place] URIC ACID BLOODon 07-21-2021 Urate [Mass/Vol] 8.3 mg/dL High 4.0 - 8.1 mg/dL [facility] Urate SerPl-mCncon Urate [Mass/Vol] 8.3 mg/dL High 4.0-8.1 [facility] Comment on above: Order Comment: Speci men Type: BLOOD SPECIMENOrdering Facility: [facility] Address: [address] [place] [address] Performed By: #### 1 9123-9, 70423-5, 3084-1 ####[facility] [id number] [address] [place] aPTT PPPon 07-21-2021 aPTT Coag (PPP) [Time] 29.1 s Normal 23.0-32.4 [facility] Comment on above: Order Comment: Speci men Type: BLOOD SPECIMENOrdering Facility: [facility] Address: [address] [place] [address] Performed By: #### 3 4528-0, 96551-8 ####[facility] [id number] [place] [address] [place] CNOVSPon 07-15-2021 CNOVSP Normal [facility] MRI KIDNEY WO/W IVCONon 05-1 MRI KIDNEY WO/W IVCON Invalid Interpretation Code [facility] CNOVSPon 07-14-2021 CNOVSP Normal [facility] CNPNon 07-11-2021 CNPN Normal [facility] CNNURSEon 07-08-2021 CNNURSE Normal [facility] CNPNon 07-07-2021 CNPN Normal [facility] CNOVSPon 07-02-2021 CNOVSP Normal [facility] BRIEF OP NOTon 07-01-2021 BRIEF OP NOT Normal [facility] CT BIOPSY CHEST WALLon 07-01 CT BIOPSY CHEST WALL Normal [facility] HISTORY PHYSICALon HISTORY PHYSICAL Normal [facility] NURSING PROGon 07-01-2021 NURSING PROG Normal [facility] PT EDon 07-01-2021 PT ED Normal [facility] SURGICAL PATHOLOGYon 022 CASE REPORT Normal [facility] Comment on above: Order Comment: Speci men Type: TISSUE SPECIMENOrdering Facility: [facility] Address: [address] [place], [place] [id number] Result Comment: Surg [facility] Pathology Report Case: [id number] Provider: Anne-Marie Chaparro MD Collected: 07/01/2021 08:31 AMOrdering Location: [place] [address] Received: 07/01/2021 01:44 PMPathologist: LAVINIA Hatchpecimen: SOFT TISSUE MASS BIOPSY, right chest wall mass - 4 passes, 4 cores Performed By: #### S ####[facility] LABCLIA [id number] [place] [address] [place] CLINICAL HISTORY right renal mass wit h right chest wall mass Normal [facility] Comment on above: Order Comment: Speci men Type: TISSUE SPECIMENOrdering Facility: [facility] Address: [address] [place] [phone] Performed By: #### S ####[facility] LABCLIA [id number] [address] DIAGNOSIS COMMENT Normal [facility] Comment on above: Order Comment: Speci men Type: TISSUE SPECIMENOrdering Facility: [facility] Address: [address] [place] [address] Result Comment: Tumo r cells are strongly and diffusely positive for PAX-8, CAM 5.2 and CA9. The overall morphology and immunoprofile support the above diagnosis.Laboratory Developed Test (LDT) Disclaimer:Performance characteristics of immunohistochemical, immunofluorescent and chromogenic in-situ hybridization tests have been determined by the performing laboratory within [facility]???s [facility] Pathology and Laboratory Medicine [place] [facility], [facility], [facility] or [facility]) in a manner consistent with CLIA requirements. One or more of these tests have not been cleared or approved by the FDA. [facility] is regulated under CLIA as qualified to perform high-complexity testing. These tests are used for clinical purposes. They should not be regarded as investigational or for research. Positive and negative controls stain appropriately. Performed By: #### S ####[facility] LABIA [id number] [address] FINAL DIAGNOSIS Normal [facility] Comment on above: Order Comment: Speci men Type: TISSUE SPECIMENOrdering Facility: [facility] Address: [address] [place] [address] Result Comment: A. S oft tissue, right chest wall mass, core needle biopsy:- Metastatic renal cell carcinoma, clear cell type. See comment.CHRISTIANO/TERA/hi 07/04/2021 Performed By: #### S ####[facility] LABIA [id number] [address] FINAL PERFORMING LAB Normal [facility] Comment on above: Order Comment: Speci men Type: TISSUE SPECIMENOrdering Facility: [facility] Address: [address] [place] [address] Result Comment: Diag nostic interpretation performed at [place] [address] CLIA# [id number] Director: Russ Madera M.D. Performed By: #### S ####[facility] [id number] [place] [address] [place] GROSS DESCRIPTION Normal [facility] Comment on above: Order Comment: Speci men Type: TISSUE SPECIMENOrdering Facility: [facility] Address: [address] [place] [address] Result Comment: A. S OFT TISSUE MASS BIOPSY.Received in formalin are multiple segments of cylindrical tissue 1.0 x 0.2 x 0.1 cm, short-red and of a friable consistency. Totally submitted in one cassette.HMM July 01, 2021 5:56 PMG[place] [address] Performed By: #### S ####[facility] [id number] [place] [address] [place] NM BONE WHOLE BODYon 022 NM BONE WHOLE BODY Normal [facility] PT panel Coag (PPP)on 2021 INR Coag (PPP) [Relative time] 1.0 {INR} Normal 0.9-1.3 [facility] Comment on above: Order Comment: Speci men Type: BLOOD SPECIMENOrdering Facility: [facility] Address: [address] [place] [address] Result Comment: Constanza min K Antagonist (VKA) Therapeutic Range: INR 2 to 3 (Target INR of 2.5)Note: For patients treated with VKA drugs, such as warfarin, the [place] [employer] 2012 Guideline recommends [...] of 3).Lars GH, et al. Chest 2012, 141:7S-47SNishluzura RA, et al. [facility] 2017, 70: 252-289 Performed By: #### 3 4528-0 ####[facility] LABCLIA [id number] [place] [address] [place] PT Coag (PPP) [Time] 10.5 s Normal 9.7-13.0 [facility] Comment on above: Order Comment: Speci men Type: BLOOD SPECIMENOrdering Facility: [facility] Address: [address] [place] [address] Performed By: #### 3 4528-0 ####[facility] LABCLIA [id number] [place] [address] [place] CT ABD/PEL W IVCONon 022 CT ABD/PEL W IVCON Normal [facility] NURSING PROGon 06-25-2021 NURSING PROG Normal [facility] CNOVon 06-23-2021 CNOV Normal [facility] CNPNon 06-23-2021 CNPN Normal [facility] CNPTOUTREACHon 06-23-2021 CNPTOUTREACH Normal [facility] URINALYSIS, REFLEX MICROSCOP ICon 06-23-2021 Bilirubin Ql (U) Negative Negative [facility] Clarity (Unsp spec) Clear Clear [facility] Color (U) Yellow Yellow [facility] Glucose Test strip (U) [Mass/Vol] Negative Negative [facility] Hemoglobin Ql (U) Negative Negative [facility] Ketones Ql (U) Negative Negative [facility] Leukocyte esterase Test strip Ql (U) Negative Negative [facility] Nitrite Ql (U) Negative Negative [facility] pH (U) 6.5 [pH] 5.0 - 8.0 [facility] Protein (U) [Mass/Vol] Trace Abnormal Negative Cl [facility] Specific gravity (U) [Rel density] 1.013 1.005 - 1.030 [facility] Urobilinogen Ql (U) Negative Negative [facility] Bilirubin Ql (U) Negative Normal Negative [facility] Comment on above: Order Comment: Speci men Type: URINE SPECIMENOrdering Facility: [facility] Address: [address] [place] [address] Performed By: #### L [id number] ####[facility] Q7CLIA [id number] [place] [address] [place] Clarity (Unsp spec) Clear Normal Clear [facility] Comment on above: Order Comment: Speci men Type: URINE SPECIMENOrdering Facility: [facility] Address: [address] [place] [address] Performed By: #### L [id number] ####[facility] Q7CLIA [id number] [place] [address] [place] Color (U) Yellow Normal Yellow [facility] Comment on above: Order Comment: Speci men Type: URINE SPECIMENOrdering Facility: [facility] Address: [address] [place] [address] Performed By: #### L [id number] ####[facility] Q7CLIA [id number] [place] [address] [place] Glucose Test strip (U) [Mass/Vol] Negative Normal Negative [facility] Comment on above: Order Comment: Speci men Type: URINE SPECIMENOrdering Facility: [facility] Address: [address] [place] [address] Performed By: #### L [id number] ####[facility] Q7CLIA [id number] [place] [address] [place] Hemoglobin Ql (U) Negative Normal Negative [facility] Comment on above: Order Comment: Speci men Type: URINE SPECIMENOrdering Facility: [facility] Address: [address] [place] [address] Performed By: #### L [id number] ####[facility] Q7CLIA [id number] [place] [address] [place] Ketones Ql (U) Negative Normal Negative [facility] Comment on above: Order Comment: Speci men Type: URINE SPECIMENOrdering Facility: [facility] Address: [address] [place] [address] Performed By: #### L [id number] ####[facility] Q7CLIA [id number] [place] [address] [place] Leukocyte esterase Test strip Ql (U) Negative Normal Negative [facility] Comment on above: Order Comment: Speci men Type: URINE SPECIMENOrdering Facility: [facility] Address: [address] [place] [address] Performed By: #### L [id number] ####[facility] Q7CLIA [id number] [place] [address] [place] Nitrite Ql (U) Negative Normal Negative [facility] Comment on above: Order Comment: Speci men Type: URINE SPECIMENOrdering Facility: [facility] Address: [address] [place] [address] Performed By: #### L [id number] ####[facility] Q7CLIA [id number] [place] [address] [place] pH (U) 6.5 [pH] Normal 5.0-8.0 [facility] Comment on above: Order Comment: Speci men Type: URINE SPECIMENOrdering Facility: [facility] Address: [address] [place], [place] [address] Performed By: #### L [id number] ####[facility] Q7CLIA [id number] [place] [address] [place] Protein (U) [Mass/Vol] Trace Abnormal Negative [facility] Comment on above: Order Comment: Speci men Type: URINE SPECIMENOrdering Facility: [facility] Address: [address] [place], [place] [address] Performed By: #### L [id number] ####[facility] Q7CLIA [id number] [place] [address] [place] Specific gravity (U) [Rel density] 1.013 Normal 1.005-1.03 0 [facility] Comment on above: Order Comment: Speci men Type: URINE SPECIMENOrdering Facility: [facility] Address: [address] [place] [address] Performed By: #### L [id number] ####[facility] Q7CLIA [id number] [place] [address] [place] Urobilinogen Ql (U) Negative Normal Negative [facility] Comment on above: Order Comment: Speci men Type: URINE SPECIMENOrdering Facility: [facility] Address: [address] [place] [address] Performed By: #### L [id number] ####[facility] Q7CLIA [id number] [place] [address] [place] CBC W Auto Differential pane l (Bld)on 06-20-2021 Basophils (Bld) [#/Vol] 0.03 10*3/uL Normal <0.11 [facility] Comment on above: Order Comment: Speci men Type: BLOOD SPECIMENOrdering Facility: [facility] Address: [address] [place], [place] [address] Performed By: #### 5 7021-8 ####[facility] LABCLIA [id number] [address] [place] Basophils/100 WBC (Bld) 0.4 % Normal C [facility] Comment on above: Order Comment: Speci men Type: BLOOD SPECIMENOrdering Facility: [facility] Address: [address] [place], [place] [address] Performed By: #### 5 7021-8 ####[facility] LABCLIA [id number] [place] [address] [place] Differential cell count method Nom (Bld) Auto Normal [facility] Comment on above: Order Comment: Speci men Type: BLOOD SPECIMENOrdering Facility: [facility] Address: [address] [place] [address] Performed By: #### 5 7021-8 ####[facility] LABCLIA [id number] [place] [address] [place] Eosinophils (Bld) [#/Vol] 10*3/uL Normal <0.46 [facility] Comment on above: Order Comment: Speci men Type: BLOOD SPECIMENOrdering Facility: [facility] Address: [address] [place], [place] [address] Performed By: #### 5 7021-8 ####[facility] LABCLIA [id number] [address] [place] Eosinophils/100 WBC (Bld) 0.3 % Normal [facility] Comment on above: Order Comment: Speci men Type: BLOOD SPECIMENOrdering Facility: [facility] Address: [address] [place] [phone] Performed By: #### 5 7021-8 ####[facility] LABIA [id number] [place] [address] [place] Erythrocyte distribution width (RBC) [Ratio] 14.8 % Normal 11.5-15.0 [facility] Comment on above: Order Comment: Speci men Type: BLOOD SPECIMENOrdering Facility: [facility] Address: [address] [place], [place] [phone] Performed By: #### 5 7021-8 ####[facility] LABCLIA [id number] [place] [address] [place] Hematocrit (Bld) [Volume fraction] 48.7 % Normal 39.0-51.0 [facility] Comment on above: Order Comment: Speci men Type: BLOOD SPECIMENOrdering Facility: [facility] Address: [address] [place], [place] [address] Performed By: #### 5 7021-8 ####[facility] LABCLIA [id number] [place] [address] [place] Hemoglobin (Bld) [Mass/Vol] 15.6 g/dL Normal 13.0-17.0 [facility] Comment on above: Order Comment: Speci men Type: BLOOD SPECIMENOrdering Facility: [facility] Address: [address] [place] [address] Performed By: #### 5 7021-8 ####[facility] LABCLIA [id number] [place] [address] [place] IMMATURE GRAN % 0.3 % Normal [facility] Comment on above: Order Comment: Speci men Type: BLOOD SPECIMENOrdering Facility: [facility] Address: [address] [place], [place] [address] Performed By: #### 5 7021-8 ####[facility] LABCLIA [id number] [place] [address] [place] IMMATURE GRAN ABS <0.03 Normal <0.10 [facility] Comment on above: Order Comment: Speci men Type: BLOOD SPECIMENOrdering Facility: [facility] Address: [address] [place], [place] [address] Performed By: #### 5 7021-8 ####[facility] LABCLIA [id number] [place] [address] [place] Lymphocytes (Bld) [#/Vol] 1.78 10*3/uL Normal 1.00-4.00 [facility] Comment on above: Order Comment: Speci men Type: BLOOD SPECIMENOrdering Facility: [facility] Address: [address] [place], [place] [address] Performed By: #### 5 7021-8 ####[facility] LABCLIA [id number] [address] [place] [facility] Lymphocytes/100 WBC (Bld) 26.6 % Normal [facility] Comment on above: Order Comment: Speci men Type: BLOOD SPECIMENOrdering Facility: [facility] Address: [address] [place], [place] [address] Performed By: #### 5 7021-8 ####[facility] LABIA [id number] [place] [address] [place] MCH (RBC) [Entitic mass] 29.4 pg Normal 26.0-34.0 [facility] Comment on above: Order Comment: Speci men Type: BLOOD SPECIMENOrdering Facility: [facility] Address: [address] [place], [place] [address] Performed By: #### 5 7021-8 ####[facility] LABIA [id number] [address] [place] [facility] MCHC (RBC) [Mass/Vol] 32.0 g/dL Normal 30.5-36.0 [facility] Comment on above: Order Comment: Speci men Type: BLOOD SPECIMENOrdering Facility: [facility] Address: [address] [place], [place] [address] Performed By: #### 5 7021-8 ####[facility] LABIA [id number] [address] [place] MCV (RBC) [Entitic vol] 91.9 fL Normal 80.0-100.0 C [facility] Comment on above: Order Comment: Speci men Type: BLOOD SPECIMENOrdering Facility: [facility] Address: [address] [place], [place] [address] Performed By: #### 5 7021-8 ####[facility] LABIA [id number] [id number] [address] [place] Monocytes (Bld) [#/Vol] 0.51 10*3/uL Normal <0.87 [facility] Comment on above: Order Comment: Speci men Type: BLOOD SPECIMENOrdering Facility: [facility] Address: [address] [place] [address] Performed By: #### 5 7021-8 ####[facility] LABCLIA [id number] [place] [address] [place] Monocytes/100 WBC (Bld) 7.6 % Normal [facility] Comment on above: Order Comment: Speci men Type: BLOOD SPECIMENOrdering Facility: [facility] Address: [address] [place] [address] Performed By: #### 5 7021-8 ####[facility] LABCLIA [id number] [place] [address] [place] Neutrophils (Bld) [#/Vol] 4.34 10*3/uL Normal 1.45-7.50 [facility] Comment on above: Order Comment: Speci men Type: BLOOD SPECIMENOrdering Facility: [facility] Address: [address] [place], [place] [address] Performed By: #### 5 7021-8 ####[facility] LABCLIA [id number] [place] [address] [place] Neutrophils/100 WBC (Bld) 64.8 % Normal [facility] Comment on above: Order Comment: Speci men Type: BLOOD SPECIMENOrdering Facility: [facility] Address: [address] [place], [place] [address] Performed By: #### 5 7021-8 ####[facility] LABCLIA [id number] [place] [address] [place] Nucleated RBC (Bld) [#/Vol] 10*3/uL Normal <0.01 [facility] Comment on above: Order Comment: Speci men Type: BLOOD SPECIMENOrdering Facility: [facility] Address: [address] [place], [place] [address] Performed By: #### 5 7021-8 ####[facility] LABIA [id number] [place] [address] [place] Nucleated RBC/100 WBC (Bld) [Ratio] 0.0 /100 WBC Normal [facility] Comment on above: Order Comment: Speci men Type: BLOOD SPECIMENOrdering Facility: [facility] Address: [address] [place], [place] [address] Performed By: #### 5 7021-8 ####[facility] [id number] [place] [address] [place] Platelet mean volume (Bld) [Entitic vol] 11.0 fL Normal 9.0-12.7 [facility] Comment on above: Order Comment: Speci men Type: BLOOD SPECIMENOrdering Facility: [facility] Address: [address] [place], [place] [address] Performed By: #### 5 7021-8 ####[facility] LABIA [id number] [place] [address] [place] Platelets (Bld) [#/Vol] 268 10*3/uL Normal 150-400 [facility] Comment on above: Order Comment: Speci men Type: BLOOD SPECIMENOrdering Facility: [facility] Address: [address] [place] [address] Performed By: #### 5 7021-8 ####[facility] LABIA [id number] [place] [address] [place] RBC (Bld) [#/Vol] 5.30 10*6/uL Normal 4.20-6.00 [facility] Comment on above: Order Comment: Speci men Type: BLOOD SPECIMENOrdering Facility: [facility] Address: [address] [place] [address] Performed By: #### 5 7021-8 ####[facility] LABCLIA [id number] [place] [address] [place] WBC (Bld) [#/Vol] 6.70 10*3/uL Normal 3.70-11.00 [facility] Comment on above: Order Comment: Speci men Type: BLOOD SPECIMENOrdering Facility: [facility] Address: [address] [place], [place] [address] Performed By: #### 5 7021-8 ####[facility] LABCLIA [id number] [place] [address] [place] CNOVon 06-20-2021 CNOV Normal [facility] metabolic 2000 panelon 06-20-2021 Albumin [Mass/Vol] 4.2 g/dL Normal 3.9-4.9 [facility] Comment on above: Order Comment: Speci men Type: BLOOD SPECIMENOrdering Facility: [facility] Address: [address] [place], [place] [address] Performed By: #### 2 4323-8 ####[facility] LABCLIA [id number] [place] [address] [place] ALP [Catalytic activity/Vol] 52 U/L Normal 38-113 [facility] Comment on above: Order Comment: Speci men Type: BLOOD SPECIMENOrdering Facility: [facility] Address: [address] [place], [place] [address] Performed By: #### 2 4323-8 ####[facility] LABCLIA [id number] [place] [address] [place] ALT [Catalytic activity/Vol] 17 U/L Normal 10-54 [facility] Comment on above: Order Comment: Speci men Type: BLOOD SPECIMENOrdering Facility: [facility] Address: [address] [place], [place] [address] Performed By: #### 2 4323-8 ####[facility] LABCLIA [id number] [place] [address] [place] Anion gap [Moles/Vol] 12 mmol/L Normal 9-18 [facility] Comment on above: Order Comment: Speci men Type: BLOOD SPECIMENOrdering Facility: [facility] Address: [address] [place] [address] Performed By: #### 2 4323-8 ####[facility] LABCLIA [id number] [place] [address] [place] AST [Catalytic activity/Vol] 18 U/L Normal 14-40 [facility] Comment on above: Order Comment: Speci men Type: BLOOD SPECIMENOrdering Facility: [facility] Address: [address] [place] [address] Performed By: #### 2 4323-8 ####[facility] LABCLIA [id number] [place] [address] [place] Bilirubin [Mass/Vol] 0.5 mg/dL Normal 0.2-1.3 [facility] Comment on above: Order Comment: Speci men Type: BLOOD SPECIMENOrdering Facility: [facility] Address: [address] [place], [place] [address] Performed By: #### 2 4323-8 ####[facility] LABCLIA [id number] [place] [address] [place] Calcium [Mass/Vol] 9.8 mg/dL Normal 8.5-10.2 [facility] Comment on above: Order Comment: Speci men Type: BLOOD SPECIMENOrdering Facility: [facility] Address: [address] [place], [place] [address] Performed By: #### 2 4323-8 ####[facility] LABCLIA [id number] [place] [address] [place] Chloride [Moles/Vol] 101 mmol/L Normal 97-105 [facility] Comment on above: Order Comment: Speci men Type: BLOOD SPECIMENOrdering Facility: [facility] Address: [address] [place] [address] Performed By: #### 2 4323-8 ####[facility] LABCLIA [id number] [address] STATES OF [facility] CO2 [Moles/Vol] 28 mmol/L Normal 22-30 [facility] Comment on above: Order Comment: Speci men Type: BLOOD SPECIMENOrdering Facility: [facility] Address: [address] [place] [address] Performed By: #### 2 4323-8 ####[facility] LABIA [id number] [address] Creatinine [Mass/Vol] 1.12 mg/dL Normal 0.73-1.22 [facility] Comment on above: Order Comment: Speci men Type: BLOOD SPECIMENOrdering Facility: [facility] Address: [address] [place] [address] Performed By: #### 2 4323-8 ####[facility] LABIA [id number] [address] ESTIMATED GLOMERULAR FILTRATION RATE 77 mL/min/1.73m??? Normal >=60 [facility] Comment on above: Order Comment: Speci men Type: BLOOD SPECIMENOrdering Facility: [facility] Address: [address] [place] [address] Result Comment: Laurita mated Glomerular Filtration Rate [...] actual GFR. Performed By: #### 2 4323-8 ####[facility] LABCLIA [id number] [address] [id number], [place] [address] [place] Glucose [Mass/Vol] 87 mg/dL Normal 74-99 [facility] Comment on above: Order Comment: Speci men Type: BLOOD SPECIMENOrdering Facility: [facility] Address: [address] [place] [address] Result Comment: The [place] [employer] (ADA) provides guidance for cutoff [...] Standards of Medical Care in Diabetes 2016, [place] [employer]. Diabetes Care. 2016.39(Suppl 1). Performed By: #### 2 4323-8 ####[facility] LABCLIA [id number] [place] [address] [place] Potassium [Moles/Vol] 3.8 mmol/L Normal 3.7-5.1 [facility] Comment on above: Order Comment: Speci men Type: BLOOD SPECIMENOrdering Facility: [facility] Address: [address] [place] [address] Performed By: #### 2 4323-8 ####[facility] LABCLIA [id number] [place] [address] [place] Protein [Mass/Vol] 7.3 g/dL Normal 6.3-8.0 [facility] Comment on above: Order Comment: Speci men Type: BLOOD SPECIMENOrdering Facility: [facility] Address: [address] [place], [place] [address] Performed By: #### 2 4323-8 ####[facility] LABCLIA [id number] [place] [address] [place] Sodium [Moles/Vol] 141 mmol/L Normal 136-144 [facility] Comment on above: Order Comment: Speci men Type: BLOOD SPECIMENOrdering Facility: [facility] Address: [address] [place] [phone] Performed By: #### 2 4323-8 ####[facility] LABCLIA [id number] [place] [address] [place] Urea nitrogen [Mass/Vol] 12 mg/dL Normal 9-24 [facility] Comment on above: Order Comment: Speci men Type: BLOOD SPECIMENOrdering Facility: [facility] Address: [address] [place] [phone] Performed By: #### 2 4323-8 ####[facility] LABCLIA [id number] [address] [address] [place] ALC ETHANOLon 06-19-2021 ALC ETHANOL < 3.0 Normal <10.0 [facility] Comment on above: Order Comment: CONSE RVATION Result Comment: UNCO NFIRMED Toxicology results. For MEDICAL purposes only. Performed By: #### L 500.39053, L500.51832, L500.36646 ####Test performed at: [place] [id number] [address] [address] ALT SerPl w P-5'-P-cCncOrder ed By: Siri Harris on 06-19-2021 ALT With P-5'-P [Catalytic activity/Vol] 23 U/L 13-61 [facility] AST SerPl w P-5'-P-cCncOrder ed By: Siri Harris on 06-19-2021 AST With P-5'-P [Catalytic activity/Vol] 16 U/L 15-37 [facility] Albumin SerPl-mCncOrdered By : Siri Harris on 06-19-2021 Albumin [Mass/Vol] 3.4 g/dL 3.4-5.0 [facility] BUN SerPl-mCncOrdered By: Natty Harris on 06-19-2021 Urea nitrogen [Mass/Vol] 16 mg/dL 7-18 [facility] Basophils Auto (Bld) [#/Vol] Ordered By: Siri Steven on 06-19-2021 Basophils (Bld) [#/Vol] 0.0 10*3/uL 0.0-0.2 [facility] Basophils/100 WBC Auto (Bld) Ordered By: Siri Harris on 06-19-2021 Basophils/100 WBC (Bld) 0.5 % [facility] CBC W/DIFFon 06-19-2021 BASO ABS 0.0 K/uL Normal 0.0-0.2 [facility] Comment on above: Order Comment: CONSE RVATION Performed By: #### L 200.87182 #### Test performed at: [address] [address] Basophils/100 WBC (Bld) 0.5 % Normal [facility] Comment on above: Order Comment: CONSE RVATION Performed By: #### L 200.59849 #### Test performed at: [address] [address] EOS ABS 0.1 K/uL Normal 0.0-0.5 [facility] Comment on above: Order Comment: CONSE RVATION Performed By: #### L 200.91544 #### Test performed at: [address] [address] Eosinophils/100 WBC (Bld) 0.6 % Normal [facility] Comment on above: Order Comment: CONSE RVATION Performed By: #### L 200.07324 #### Test performed at: [address] [address] Erythrocyte distribution width (RBC) [Ratio] 14.8 % High 11.5-14.5 [facility] Comment on above: Order Comment: CONSE RVATION Performed By: #### L 200.35539 #### Test performed at: [address] [address] Hematocrit (Bld) [Volume fraction] 43.8 % Normal 39.0-55.0 [facility] Comment on above: Order Comment: CONSE RVATION Performed By: #### L 200.74316 #### Test performed at: [address] [address] Hemoglobin (Bld) [Mass/Vol] 14.9 g/dL Normal 14.0-16.5 [facility] Comment on above: Order Comment: CONSE RVATION Performed By: #### L 200.92248 #### Test performed at: [place] [address] IG % 0.4 % Normal [facility] Comment on above: Order Comment: CONSE RVATION Performed By: #### L 200.21344 #### Test performed at: [address] [address] IG ABS 0.03 K/uL Normal 0-0.05 [facility] Comment on above: Order Comment: CONSE RVATION Performed By: #### L 200.75615 #### Test performed at: [address] [address] Lymphocytes (Bld) [#/Vol] 2.0 10*3/uL Normal 1.2-3.5 [facility] Comment on above: Order Comment: CONSE RVATION Performed By: #### L 200.33072 #### Test performed at: [address] [address] Lymphocytes/100 WBC (Bld) 25.2 % Normal [facility] Comment on above: Order Comment: CONSE RVATION Performed By: #### L 200.88317 #### Test performed at: [address] [address] MCH (RBC) [Entitic mass] 30.2 pg Normal 25.4-34.6 [facility] Comment on above: Order Comment: CONSE RVATION Performed By: #### L 200.74731 #### Test performed at: [address] [address] MCHC (RBC) [Mass/Vol] 34.0 g/dL Normal 31.5-36.5 [facility] Comment on above: Order Comment: CONSE RVATION Performed By: #### L 200.60663 #### Test performed at: [address] [address] MCV (RBC) [Entitic vol] 88.7 fL Normal 80.0-100.0 [facility] Comment on above: Order Comment: CONSE RVATION Performed By: #### L 200.32317 #### Test performed at: [address] [address] MONO ABS 0.7 K/uL Normal 0.0-1.0 [facility] Comment on above: Order Comment: CONSE RVATION Performed By: #### L 200.21901 #### Test performed at: [address] [address] Monocytes/100 WBC (Bld) 9.4 % Normal [facility] Comment on above: Order Comment: CONSE RVATION Performed By: #### L 200.51561 #### Test performed at: [address] [address] NEUTROPHIL ABS 4.9 K/uL Normal 1.4-6.6 [facility] Comment on above: Order Comment: CONSE RVATION Performed By: #### L 200.18107 #### Test performed at: [address] [address] Neutrophils/100 WBC (Bld) 63.9 % Normal [facility] Comment on above: Order Comment: CONSE RVATION Performed By: #### L 200.81802 #### Test performed at: [address] [address] NRBC # 0.000 K/uL Normal 0-0.012 [facility] Comment on above: Order Comment: CONSE RVATION Performed By: #### L 200.91507 #### Test performed at: [address] [address] NRBC % 0.0 /100 WBC Normal 0-0.2 [facility] Comment on above: Order Comment: CONSE RVATION Performed By: #### L 200.40336 #### Test performed at: [address] [address] Platelet mean volume (Bld) [Entitic vol] 10.1 fL Normal 8.7-12.4 [facility] Comment on above: Order Comment: CONSE RVATION Performed By: #### L 200.72240 #### Test performed at: [address] [address] Platelets (Bld) [#/Vol] 245 10*3/uL Normal 140-440 [facility] Comment on above: Order Comment: CONSE RVATION Performed By: #### L 200.31294 #### Test performed at: [address] [address] RBC (Bld) [#/Vol] 4.94 10*6/uL Normal 3.5-5.5 [facility] Comment on above: Order Comment: CONSE RVATION Performed By: #### L 200.24704 #### Test performed at: [address] [address] WBC (Bld) [#/Vol] 7.7 10*3/uL Normal 3.9-11.0 [facility] Comment on above: Order Comment: CONSE RVATION Performed By: #### L 200.24911 #### Test performed at: [place] [address] CO2 SerPl-sCncOrdered By: Natty Harris on 06-19-2021 CO2 [Moles/Vol] 29 mmol/L 21-32 [facility] COMP META PANELon 06-19-2021 Albumin [Mass/Vol] 3.4 g/dL Normal 3.4-5.0 [facility] Comment on above: Order Comment: CONSE RVATION Performed By: #### L 500.06225, L500.77100, L500.33942 #### Test performed at: [place] [address] ALK PHOS TOTAL 58 U/L Normal 45-117 [facility] Comment on above: Order Comment: CONSE RVATION Performed By: #### L 500.15487, L500.55945, L500.79292 #### Test performed at: [place] [id number] ALT [Catalytic activity/Vol] 23 U/L Normal 13-61 [facility] Comment on above: Order Comment: CONSE RVATION Performed By: #### L 500.79804, L500.51166, L500.19603 #### Test performed at: [address] [address] AST [Catalytic activity/Vol] 16 U/L Normal 15-37 [facility] Comment on above: Order Comment: CONSE RVATION Performed By: #### L 500.43018, L500.00182, L500.31371 #### Test performed at: [place] [id number] BILI TOTAL 0.4 mg/dL Normal 0.2-1.0 [facility] Comment on above: Order Comment: CONSE RVATION Performed By: #### L 500.52361, L500.13168, L500.73051 #### Test performed at: [place] [address] [address] Calcium [Mass/Vol] 9.0 mg/dL Normal 8.5-10.1 [facility] Comment on above: Order Comment: CONSE RVATION Performed By: #### L 500.53511, L500.17513, L500.72611 #### Test performed at: [address] [address] Chloride [Moles/Vol] 107 mmol/L Normal 98-107 [facility] Comment on above: Order Comment: CONSE RVATION Performed By: #### L 500.02073, L500.82364, L500.88012 #### Test performed at: [address] [address] CO2 [Moles/Vol] 29 mmol/L Normal 21-32 [facility] Comment on above: Order Comment: CONSE RVATION Performed By: #### L 500.78750, L500.63142, L500.71129 #### Test performed at: [address] [address] Creatinine [Mass/Vol] 1.290 mg/dL Normal 0.700- 1.[address] [facility] Comment on above: Order Comment: CONSE RVATION Performed By: #### L 500.90109, L500.17915, L500.24034 #### Test performed at: [address] [address] Glucose [Mass/Vol] 91 mg/dL Normal 70-99 [facility] Comment on above: Order Comment: CONSE RVATION Result Comment: Fast ing GLUCOSE reference range has been updated per (ADA) [place] [employer]'s recommendation. 05/31/2018 Performed By: #### L 500.13897, L500.97041, L500.79570 #### Test performed at: [address] [address] Potassium [Moles/Vol] 3.5 mmol/L Normal 3.5-5.1 [facility] Comment on above: Order Comment: CONSE RVATION Performed By: #### L 500.67990, L500.62755, L500.44128 #### Test performed at: [address] [address] Protein [Mass/Vol] 6.9 g/dL Normal 6.4-8.2 [facility] Comment on above: Order Comment: CONSE RVATION Performed By: #### L 500.29542, L500.13274, L500.24286 #### Test performed at: [address] [address] Sodium [Moles/Vol] 140 mmol/L Normal 136-145 [facility] Comment on above: Order Comment: CONSE RVATION Performed By: #### L 500.18810, L500.45538, L500.95183 #### Test performed at: [address] [address] Urea nitrogen [Mass/Vol] 16 mg/dL Normal 7-18 [facility] Comment on above: Order Comment: CONSE RVATION Performed By: #### L 500.17080, L500.25948, L500.27448 #### Test performed at: [address] [address] [address] ANG THORAX WCON PE [facility] 06-19-2021 CT ANG THORAX WCON PE PROTOCOL STUDY: CT ANG THORAX WCON PE PROTOCOL; 06/19/2021 6:00 pm INDICATION: high dimer. COMPARISON: Chest x-ray 06/19/2021. ACCESSION NUMBER(S): [id number] ORDERING CLINICIAN: Siri Harris TECHNIQUE: Helical data [...] directly by me by telephone to Siri Harris on 06/19/2021 at 6:47 pm with readback verification. Normal [facility] CT HEAD/BRAIN WO CONon 06-19 CT HEAD/BRAIN WO CON STUDY: CT HEAD/BRAIN WO CON; 06/19/2021 6:00 pm INDICATION: htn. COMPARISON: CT scan of the head 09/09/2016 ACCESSION NUMBER(S): [id number] ORDERING CLINICIAN: Siri Harris TECHNIQUE: Axial noncontrast [...] Stable chronic changes as described above. Normal [facility] Calcium SerPl-mCncOrdered By : Siri Harris on 06-19-2021 Calcium [Mass/Vol] 9.0 mg/dL 8.5-10.1 [facility] D dimer FEU PPP-mCncOrdered By: Siri Harris on 06-19-2021 Fibrin D-dimer FEU (PPP) [Mass/Vol] 1020.82 <500 [facility] Comment on above: The CUT-OFF value fo r the evaluation of VenousThromboEmbolism (VTE) is <500 ng/mL FEU. D-DIMER QUANTon 06-19-2021 D-DIMER QUANT 1020.82 ng/mLFEU High <500 [facility] Comment on above: Order Comment: CONSE RVATION Result Comment: The CUT-OFF value for the evaluation of Venous ThromboEmbolism (VTE) is <500 ng/mL FEU. Performed By: #### L 300.59068 #### Test performed at: [place] [address] ED Provider Reporton 022 ED Provider Report [facility] Pt Name: YEFRI YANEZ MR#: [id number] [address] [place] [address] ACCT: [id number] : 63 EMERGENCY PROVIDER REPORT ADM Date: [...] History Past Medical History Reports HTN, Denies NH, Denies COPD, Denies Asthma Past Med Hx [...] Medical Decision Making Diagnostics Labs Laboratory Tests Andrea[address] 06/19 06/19 06/19 1629 1629 1617 Chemistry [...] 23 Mallory (more content not included)... Normal [facility] EKGon 06-19-2021 Electrocardiogram Acquired on 06/20/19 22 [...] was found Confirmed by FILEMON LEYVA MD ([id number]) on 06/23/2021 12:43:43 PM Referred By: Confirmed By:FILEMON LEYVA MD [id number] 2021 -------- [facility] PT NAME: YEFRI YANEZ MR#: [id number] [address] [place] [address] ACCT: [id number] : [address] [facility] Eosinophils Auto (Bld) [#/Vo l]Ordered By: Siri Harris on 06-19-2021 Eosinophils (Bld) [#/Vol] 0.1 10*3/uL 0.0-0.5 [facility] Eosinophils/100 WBC Auto (Bl d)Ordered By: Siri Harris on 06-19-2021 Eosinophils/100 WBC (Bld) 0.6 % [facility] Erythrocyte distribution wid th Auto (RBC) [Ratio]Ordered By: Siri Harris on 06-19-2021 Erythrocyte distribution width (RBC) [Ratio] 14.8 % 11.5-14.5 [facility] GFR ESTIMATEon 06-19-2021 IF AMER > 60 Normal > 60 [facility] Comment on above: Order Comment: CONSE RVATION [...] for clinical interpretation. Performed By: #### L 500.87992, L500.03544, L500.44237 ####Test performed at: [place] [address] IF non-AFR AMER 57 Low > 60 [facility] Comment on above: Order Comment: CONSE RVATION Performed By: #### L 500.19938, L500.82417, L500.78367 ####Test performed at: [place] [address] GFR/BSA.pred SerPlBld-ArVRat Ordered By: Siri Harris on 06-19-2021 GFR/1.73 sq M.predicted (S/P/Bld) [Vol rate/Area] 57 mL/min > 60 [facility] GFR/1.73 sq M.predicted (S/P/Bld) [Vol rate/Area] mL/min > 60 [facility] Comment on above: eGFR (Estimated GFR) Units of measure:mL/min/1.73 meters sq. *CALCULATION REVISED 12/25/2014;IDMS-traceable MDRD equationeGFR is derived from the reexpressed MDRD Study equationusing the following parameters: serum creatinine, age,gender and race. An eGFR<60 mL/min/1.73m2 for >3 monthsis consistent with chronic kidney disease. Refer to KDOQIguidelines for clinical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 Phone: 1(815)554-191607 [place] [address] 06-28-2022 00:14-0400 Body temperature 98.7 [degF] Dr. Jose Ramon Turner Work Phone: 9(827)399-203507 [place] [address] 06-28-2022 00:14-0400 Diastolic blood pressure 89 mm[Hg] Dr. Jose Ramon Turner Work Phone: 0(285)302-435807 [place] [address] 06-28-2022 00:14-0400 Heart rate 98 /min Dr. Jose Ramon Turner Work Phone: [facility] 06-28-2022 00:14-0400 Respiratory rate 24 /min Dr. Jose Ramon Turner Work Phone: [facility] 06-28-2022 00:14-0400 SaO2% (BldA) [Mass fraction] 97 % Dr. Jose Ramon Turner Work Phone: [facility] 06-28-2022 00:14-0400 Systolic blood pressure 139 mm[Hg] Dr. Jose Ramon Turner Work Phone: 8(639)984-215141 [address] 06-27-2022 23:04-0400 Body height 180.[address] Jose Ramon Turner Work Phone: 0(863)794-154747 [place] [address] 06-27-2022 23:04-0400 Body mass index (BMI) [Ratio] 38.8 kg/m2 Dr. Jose Ramon Turner Work Phone: 1(247)820-332347 [place] [address] 06-27-2022 23:04-0400 Body weight 126.[address] Jose Ramon Turner Work Phone: 6(313)681-988841 [address] 05-27-2022 12:50-0400 Body mass index (BMI) [Ratio] 37.8 kg/m2 Dr. Jose Ramon Turner Work Phone: 7(797)401-882441 [address] 05-27-2022 12:50-0400 Body temperature 98.6 [degF] Dr. Jose Ramon Turner Work Phone: [facility] 05-27-2022 12:50-0400 Body weight 123.[address] Jose Ramon Turner Work Phone: 2(455)952-030141 [address] 05-27-2022 12:50-0400 Diastolic blood pressure 83 mm[Hg] Dr. Jose Ramon Turner Work Phone: 9(051)861-019747 [place] [address] 05-27-2022 12:50-0400 Heart rate 54 /min Dr. Jose Ramon Turner Work Phone: 3(205)954-356647 [place] [address] 05-27-2022 12:50-0400 Respiratory rate 17 /min Dr. Jose Ramon Turner Work Phone: [facility] 05-27-2022 12:50-0400 Systolic blood pressure 117 mm[Hg] Dr. Jose Ramon Turner Work Phone: [facility] 05-27-2022 10:46-0400 Body weight 122.[address] Jose Ramon Turner Work Phone: [facility] 05-27-2022 10:46-0400 Diastolic blood pressure 83 mm[Hg] Dr. Jose Ramon Turner Work Phone: [facility] 05-27-2022 10:46-0400 Heart rate 77 /min Dr. Jose Ramon Turner Work Phone: [facility] 05-27-2022 10:46-0400 Respiratory rate 24 /min Dr. Jose Ramon Turner Work Phone: [facility] 05-27-2022 10:46-0400 Systolic blood pressure 117 mm[Hg] Dr. Jose Ramon Turner Work Phone: [facility] 05-20-2022 08:50-0400 Body temperature 97.6 [degF] Dr. Jose Ramon Turner Work Phone: [facility] 05-20-2022 08:50-0400 Diastolic blood pressure 86 mm[Hg] Dr. Jose Ramon Turner Work Phone: [facility] 05-20-2022 08:50-0400 Heart rate 78 /min Dr. Jose Ramon Turner Work Phone: [facility] 05-20-2022 08:50-0400 Respiratory rate 18 /min Dr. Jose Ramon Turner Work Phone: [facility] 05-20-2022 08:50-0400 SaO2% (BldA) [Mass fraction] 96 % Dr. Jose Ramon Turner Work Phone: [facility] 05-20-2022 08:50-0400 Systolic blood pressure 133 mm[Hg] Dr. Jose Ramon Turner Work Phone: [facility] 05-20-2022 07:38-0400 Inhaled oxygen concentration 30 % Dr. Jose Ramon Turner Work Phone: [facility] 05-20-2022 04:08-0400 Body mass index (BMI) [Ratio] 37.9 kg/m2 Dr. Jose Ramon Turner Work Phone: [facility] 05-20-2022 04:08-0400 Body weight 123.[address] Jose Ramon Turner Work Phone: [facility] 05-19-2022 14:55-0400 Body height 180.[address] Jose Ramon Turner Work Phone: [facility] 05-18-2022 17:18-0400 Body temperature 97.5 [degF] Dr. Jose Ramon Turner Work Phone: [facility] 05-18-2022 17:18-0400 Diastolic blood pressure 113 mm[Hg] Dr. Jose Ramon Turner Work Phone: [facility] 05-18-2022 17:18-0400 Heart rate 97 /min Dr. Jose Ramon Turner Work Phone: [facility] 05-18-2022 17:18-0400 Respiratory rate 24 /min Dr. Jose Ramon Turner Work Phone: [facility] 05-18-2022 17:18-0400 SaO2% (BldA) [Mass fraction] 97 % Dr. Jose Ramon Turner Work Phone: [facility] 05-18-2022 17:18-0400 Systolic blood pressure 145 mm[Hg] Dr. Jose Ramon Turner Work Phone: [facility] 05-18-2022 14:59-0400 Body height 180.[address] Jose Ramon Turner Work Phone: [facility] 05-18-2022 14:59-0400 Body mass index (BMI) [Ratio] 38.6 kg/m2 Dr. Jose Ramon Turner Work Phone: [facility] 05-18-2022 14:59-0400 Body weight 125.[address] Jose Ramon Turner Work Phone: [facility] 04-16-2022 13:54-0500 Body temperature 97.7 [degF] Dr. Jose Ramon Turner Work Phone: [facility] 04-16-2022 13:54-0500 Diastolic blood pressure 88 mm[Hg] Dr. Jose Ramon Turner Work Phone: [facility] 04-16-2022 13:54-0500 Heart rate 98 /min Dr. Jose Ramon Turner Work Phone: [facility] 04-16-2022 13:54-0500 Respiratory rate 18 /min Dr. Jose Ramon Turner Work Phone: [facility] 04-16-2022 13:54-0500 SaO2% (BldA) [Mass fraction] 94 % Dr. Jose Ramon Turner Work Phone: [facility] 04-16-2022 13:54-0500 Systolic blood pressure 120 mm[Hg] Dr. Jose Ramon Turner Work Phone: [facility] 04-16-2022 09:58-0500 Inhaled oxygen flow rate 0 L/min Dr. Jose Ramon Turner Work Phone: [facility] 04-16-2022 06:00-0500 Body weight 121.[address] Jose Ramon Turner Work Phone: [facility] 04-16-2022 04:00-0500 Inhaled oxygen concentration 32 % Dr. Jose Ramon Turner Work Phone: [facility] 04-14-2022 10:03-0500 Body height 177.[address] Jose Ramon Turner Work Phone: [facility] 04-14-2022 01:15-0500 Body mass index (BMI) [Ratio] 38.5 kg/m2 Dr. Jose Ramon Turner Work Phone: [facility] 04-14-2022 00:37-0500 Body temperature 97.1 [degF] [facility] 04-14-2022 00:37-0500 Diastolic blood pressure 82 mm[Hg] [facility] 04-14-2022 00:37-0500 Heart rate 102 /min [facility] 04-14-2022 00:37-0500 Inhaled oxygen flow rate 2 L/min [facility] 04-14-2022 00:37-0500 Respiratory rate 22 /min [facility] 04-14-2022 00:37-0500 SaO2% (BldA) [Mass fraction] 100 % [facility] 04-14-2022 00:37-0500 Systolic blood pressure 116 mm[Hg] [facility] 04-13-2022 21:17-0500 Body height 180.34 cm [facility] 04-13-2022 21:17-0500 Body mass index (BMI) [Ratio] 35.8 kg/m2 [facility] 04-13-2022 21:17-0500 Body weight 116.57 kg [facility] 04-03-2022 10:31-0500 Body height 177.8 cm Daksha Turner Work Phone: [facility] [employer] 400 DO Work Phone: 04-03-2022 10:31-0500 Body mass index (BMI) [Ratio] 38.63 kg/m2 Daksha Turner Work Phone: [facility] [employer] 400 DO Work Phone: 04-03-2022 10:31-0500 Body surface area Derived from formula 2.37 m2 Daksha Turner Work Phone: [facility] [employer] 400 DO Work Phone: 04-03-2022 10:31-0500 Body temperature 97.6 [degF] Kimoela Turner Work Phone: [facility] [employer] 400 DO Work Phone: 04-03-2022 10:31-0500 Body weight 122.13 kg Daksha Turner Work Phone: [facility] [employer] 400 DO Work Phone: 04-03-2022 10:31-0500 Diastolic blood pressure 73 mm[Hg] Kimoela Turner Work Phone: [facility] 400 DO Work Phone: 04-03-2022 10:31-0500 Heart rate 123 /min Kimoela Turner Work Phone: [facility]skf[facility]Aul[facility] 400 DO Work Phone: 04-03-2022 10:31-0500 Systolic blood pressure 111 mm[Hg] Daksha Abdirahman Turner Work Phone: [facility] 400 DO Work Phone: 03-11-2022 13:10-0500 Body weight 118.84 kg Haylee Wilburn MD Work Phone: [facility] 03-11-2022 13:10-0500 Diastolic blood pressure 84 mm[Hg] Haylee Wilburn MD Work Phone: [facility] 03-11-2022 13:10-0500 Heart rate 78 /min Haylee Wilburn MD Work Phone: [facility] 03-11-2022 13:10-0500 Respiratory rate 16 /min Haylee Wilburn MD Work Phone: [facility] 03-11-2022 13:10-0500 Systolic blood pressure 134 mm[Hg] Haylee Wilburn MD Work Phone: [facility] 02-17-2022 11:30-0500 Body weight 114.76 kg Haylee Wilburn MD Work Phone: [facility] 02-17-2022 11:30-0500 Diastolic blood pressure 74 mm[Hg] Haylee Wilburn MD Work Phone: [facility] 02-17-2022 11:30-0500 Heart rate 72 /min Haylee Wilburn MD Work Phone: [facility] 02-17-2022 11:30-0500 Respiratory rate 16 /min Haylee Wilburn MD Work Phone: [facility] 02-17-2022 11:30-0500 Systolic blood pressure 132 mm[Hg] Haylee Wilburn MD Work Phone: [facility] 02-16-2022 11:03-0500 Diastolic blood pressure 64 mm[Hg] Sayra Tello MD Work Phone: [facility] 02-16-2022 11:03-0500 Systolic blood pressure 90 mm[Hg] Sayra Tello MD Work Phone: [facility] 02-16-2022 10:55-0500 Body height 180.3 cm Sayra Tello MD Work Phone: [facility] 02-16-2022 10:55-0500 Body weight 115.67 kg Sayra Tello MD Work Phone: [facility] 02-16-2022 10:55-0500 Heart rate 51 /min Sayra Tello MD Work Phone: [facility] 02-16-2022 10:55-0500 SaO2% (BldA) [Mass fraction] 94 % Sayra Tello MD Work Phone: [facility] 02-13-2022 14:10-0500 Body temperature 98.2 [degF] Suman Peterson FURNACE ERECTOR.CONCRETE MIXER OPERATOR HELPER Work Phone: [facility] 02-13-2022 14:10-0500 Body weight 119.75 kg Suman Peterson APRN.CONCRETE MIXER OPERATOR HELPER Work Phone: [facility] 02-13-2022 14:10-0500 Diastolic blood pressure 87 mm[Hg] Suman Peterson FURNACE ERECTOR.CONCRETE MIXER OPERATOR HELPER Work Phone: [facility] 02-13-2022 14:10-0500 Heart rate 64 /min Suman Peterson FURNACE ERECTOR.CONCRETE MIXER OPERATOR HELPER Work Phone: [facility] 02-13-2022 14:10-0500 Respiratory rate 22 /min Suman Peterson FURNACE ERECTOR.CONCRETE MIXER OPERATOR HELPER Work Phone: [facility] 02-13-2022 14:10-0500 SaO2% (BldA) [Mass fraction] 94 % Suman Peterson FURNACE ERECTOR.CONCRETE MIXER OPERATOR HELPER Work Phone: [facility] 02-13-2022 14:10-0500 Systolic blood pressure 138 mm[Hg] Suman Peterson FURNACE ERECTOR.CONCRETE MIXER OPERATOR HELPER Work Phone: [facility] 02-10-2022 14:00-0500 Body temperature 97.52 [degF] Daksha Turner Other Phone: [facility] 02-10-2022 14:00-0500 Diastolic blood pressure 100 mm[Hg] Daksha Turner Other Phone: [facility] 02-10-2022 14:00-0500 Heart rate 87 /min Daksha Turner Other Phone: [facility] 02-10-2022 14:00-0500 Respiratory rate 18 /min Daksha Turner Other Phone: [facility] 02-10-2022 14:00-0500 SaO2% (BldA) [Mass fraction] 94 % Daksha Turner Other Phone: [facility] 02-10-2022 14:00-0500 Systolic blood pressure 126 mm[Hg] Daksha Turner Other Phone: [facility] 01-29-2022 15:08-0500 Respiratory rate 20 /min Dr. Jose Ramon Turner Work Phone: [facility] 01-29-2022 14:36-0500 Diastolic blood pressure 128 mm[Hg] Dr. Jose Ramon Turner Work Phone: [facility] 01-29-2022 14:36-0500 Heart rate 101 /min Dr. Jose Ramon Turner Work Phone: [facility] 01-29-2022 14:36-0500 SaO2% (BldA) [Mass fraction] 98 % Dr. Jose Ramon Turner Work Phone: [facility] 01-29-2022 14:36-0500 Systolic blood pressure 157 mm[Hg] Dr. Jose Ramon Turner Work Phone: [facility] 01-29-2022 14:00-0500 Inhaled oxygen flow rate 2 L/min Dr. Jose Ramon Turner Work Phone: [facility] 01-29-2022 11:54-0500 Body height 177.[address] Jose Ramon Turner Work Phone: [facility] Work Phone: 01-29-2022 11:54-0500 Body mass index (BMI) [Ratio] 40.1 kg/m2 Dr. Jose Ramon Turner Work Phone: [facility] 01-29-2022 11:54-0500 Body temperature 97.6 [degF] Dr. Jose Ramon Turner Work Phone: [facility] 01-29-2022 11:54-0500 Body weight 126.[address] Jose Ramon Turner Work Phone: [facility] 01-20-2022 20:25-0500 Diastolic blood pressure 103 mm[Hg] Dr. Jose Ramon Turner Work Phone: [facility] 01-20-2022 20:25-0500 Heart rate 88 /min Dr. Jose Ramon Turner Work Phone: [facility] 01-20-2022 20:25-0500 Respiratory rate 31 /min Dr. Jose Ramon Turner Work Phone: [facility] 01-20-2022 20:25-0500 SaO2% (BldA) [Mass fraction] 97 % Dr. Jose Ramon Turner Work Phone: [facility] 01-20-2022 20:25-0500 Systolic blood pressure 136 mm[Hg] Dr. Jose Ramon Turner Work Phone: [facility] 01-20-2022 18:43-0500 Body height 177.[address] Jose Ramon Turner Work Phone: [facility] Work Phone: 01-20-2022 18:43-0500 Body mass index (BMI) [Ratio] 30.9 kg/m2 Dr. Jose Ramon Turner Work Phone: [facility] 01-20-2022 18:43-0500 Body temperature 97.7 [degF] Dr. Jose Ramon Turner Work Phone: [facility] 01-20-2022 18:43-0500 Body weight 97.[address] Jose Ramon Turner Work Phone: [facility] 12-09-2021 10:15-0400 Body height 177.8 cm Alfredo Xavier MD Work Phone: [facility] 12-09-2021 10:15-0400 Body weight 114.31 kg Alfredo Xavier MD Work Phone: [facility] 12-09-2021 10:15-0400 Diastolic blood pressure 91 mm[Hg] Alfredo Xavier MD Work Phone: [facility] 12-09-2021 10:15-0400 Heart rate 98 /min Alfredo Xavier MD Work Phone: [facility] 12-09-2021 10:15-0400 Respiratory rate 22 /min Alfredo Xavier MD Work Phone: [facility] 12-09-2021 10:15-0400 SaO2% (BldA) [Mass fraction] 96 % Alfredo Xavier MD Work Phone: [facility] 12-09-2021 10:15-0400 Systolic blood pressure 131 mm[Hg] Alfredo Xavier MD Work Phone: [facility] 12-09-2021 07:44-0400 Body temperature 97 [degF] Dr. Jose Ramon Turner Work Phone: [facility] Work Phone: 12-09-2021 07:44-0400 Diastolic blood pressure 88 mm[Hg] Dr. Jose Ramon Turner Work Phone: [facility] Work Phone: 12-09-2021 07:44-0400 Heart rate 61 /min Dr. Jose Ramon Turner Work Phone: [facility] Work Phone: 12-09-2021 07:44-0400 Respiratory rate 16 /min Dr. Jose Ramon Turner Work Phone: [facility] Work Phone: 12-09-2021 07:44-0400 SaO2% (BldA) [Mass fraction] 96 % Dr. Jose Ramon Turner Work Phone: [facility] Work Phone: 12-09-2021 07:44-0400 Systolic blood pressure 112 mm[Hg] Dr. Jose Ramon Turner Work Phone: [facility] Work Phone: 12-08-2021 17:06-0400 Inhaled oxygen flow rate 2 L/min Dr. Jose Ramon Turner Work Phone: [facility] Work Phone: 12-08-2021 12:50-0400 Body weight 116.[address] Jose Ramon Turner Work Phone: [facility] Work Phone: 12-07-2021 16:40-0400 Body mass index (BMI) [Ratio] 36.7 kg/m2 Dr. Jose Ramon Turner Work Phone: [facility] Work Phone: 12-07-2021 16:29-0400 Body temperature 98.4 [degF] [facility] Work Phone: 12-07-2021 16:29-0400 Diastolic blood pressure 78 mm[Hg] [facility] Work Phone: 12-07-2021 16:29-0400 Heart rate 98 /min [facility] Work Phone: 12-07-2021 16:29-0400 Inhaled oxygen flow rate 2 L/min [facility] Work Phone: 12-07-2021 16:29-0400 Respiratory rate 24 /min [facility] Work Phone: 12-07-2021 16:29-0400 SaO2% (BldA) [Mass fraction] 97 % [facility] Work Phone: 12-07-2021 16:29-0400 Systolic blood pressure 134 mm[Hg] [facility] Work Phone: 12-07-2021 13:38-0400 Body height 177.8 cm [facility] Work Phone: 12-07-2021 13:38-0400 Body mass index (BMI) [Ratio] 36.6 kg/m2 [facility] Work Phone: 12-07-2021 13:38-0400 Body weight 115.66 kg [facility] Work Phone: 11-19-2021 08:48-0400 Body height 177.8 cm Haylee Wilburn MD Work Phone: [facility] 11-19-2021 08:48-0400 Body weight 118.84 kg Haylee Wilburn MD Work Phone: [facility] 11-19-2021 08:48-0400 Diastolic blood pressure 82 mm[Hg] Haylee Wilburn MD Work Phone: [facility] 11-19-2021 08:48-0400 Heart rate 76 /min Haylee Wilburn MD Work Phone: [facility] 11-19-2021 08:48-0400 Respiratory rate 18 /min Haylee Wilburn MD Work Phone: [facility] 11-19-2021 08:48-0400 Systolic blood pressure 130 mm[Hg] Haylee Wilburn MD Work Phone: [facility] 10-27-2021 11:35-0400 Body height 177.8 cm Pacc 2 Work Phone: [facility] 10-27-2021 11:35-0400 Body temperature 97.7 [degF] Pacc 2 Work Phone: [facility] 10-27-2021 11:35-0400 Body weight 118.39 kg Pacc 2 Work Phone: [facility] 10-27-2021 11:35-0400 Diastolic blood pressure 88 mm[Hg] Pacc 2 Work Phone: [facility] 10-27-2021 11:35-0400 Heart rate 77 /min Pacc 2 Work Phone: [facility] 10-27-2021 11:35-0400 SaO2% (BldA) [Mass fraction] 96 % Pacc 2 Work Phone: [facility] 10-27-2021 11:35-0400 Systolic blood pressure 127 mm[Hg] Pacc 2 Work Phone: [facility] 10-09-2021 10:24-0400 Body temperature 97.7 [degF] Godfrey Maroli FURNACE ERECTOR.CONCRETE MIXER OPERATOR HELPER Work Phone: [facility] 10-09-2021 10:24-0400 Body weight 118.84 kg Godfrey Maroli FURNACE ERECTOR.CONCRETE MIXER OPERATOR HELPER Work Phone: [facility] 10-09-2021 10:24-0400 Diastolic blood pressure 89 mm[Hg] Godfrey Maroli FURNACE ERECTOR.CONCRETE MIXER OPERATOR HELPER Work Phone: [facility] 10-09-2021 10:24-0400 Heart rate 74 /min Godfrey Maroli FURNACE ERECTOR.CONCRETE MIXER OPERATOR HELPER Work Phone: [facility] 10-09-2021 10:24-0400 Respiratory rate 20 /min Godfrey Maroli FURNACE ERECTOR.CONCRETE MIXER OPERATOR HELPER Work Phone: [facility] 10-09-2021 10:24-0400 SaO2% (BldA) [Mass fraction] 97 % Godfrey Maroli FURNACE ERECTOR.CONCRETE MIXER OPERATOR HELPER Work Phone: [facility] 10-09-2021 10:24-0400 Systolic blood pressure 130 mm[Hg] Godfrey Maroli FURNACE ERECTOR.CONCRETE MIXER OPERATOR HELPER Work Phone: [facility] 09-22-2021 12:16-0400 Body height 180.3 cm Chaka Doris FURNACE ERECTOR.CONCRETE MIXER OPERATOR HELPER Work Phone: [facility] 09-22-2021 12:16-0400 Body weight 125.19 kg Chaka Doris FURNACE ERECTOR.CONCRETE MIXER OPERATOR HELPER Work Phone: [facility] 09-22-2021 12:16-0400 Diastolic blood pressure 90 mm[Hg] Chaka Doris FURNACE ERECTOR.CONCRETE MIXER OPERATOR HELPER Work Phone: [facility] 09-22-2021 12:16-0400 Heart rate 90 /min Chaka Doris FURNACE ERECTOR.CONCRETE MIXER OPERATOR HELPER Work Phone: [facility] 09-22-2021 12:16-0400 Respiratory rate 18 /min Chaka Doris FURNACE ERECTOR.CONCRETE MIXER OPERATOR HELPER Work Phone: [facility] 09-22-2021 12:16-0400 SaO2% (BldA) [Mass fraction] 97 % Chaka Doris FURNACE ERECTOR.CONCRETE MIXER OPERATOR HELPER Work Phone: [facility] 09-22-2021 12:16-0400 Systolic blood pressure 128 mm[Hg] Chaka Doris FURNACE ERECTOR.CONCRETE MIXER OPERATOR HELPER Work Phone: [facility] 09-11-2021 13:30-0400 Body temperature 97.11 [degF] Kenneth Chester MD Work Phone: [facility] 09-11-2021 13:30-0400 Body weight 118.07 kg Kenneth Chester MD Work Phone: [facility] 09-11-2021 13:30-0400 Diastolic blood pressure 89 mm[Hg] Kenneth Chester MD Work Phone: [facility] 09-11-2021 13:30-0400 Heart rate 92 /min Kenneth Chester MD Work Phone: [facility] 09-11-2021 13:30-0400 Respiratory rate 20 /min Kenneth Chester MD Work Phone: [facility] 09-11-2021 13:30-0400 SaO2% (BldA) [Mass fraction] 95 % Kenneth Chester MD Work Phone: [facility] 09-11-2021 13:30-0400 Systolic blood pressure 139 mm[Hg] Kenneth Chester MD Work Phone: [facility] 09-02-2021 14:09-0400 Body temperature 97.9 [degF] Taussig (Trac) Work Phone: [facility] 09-02-2021 14:09-0400 Body weight 118.16 kg Taussig (Trac) Work Phone: [facility] 09-02-2021 14:09-0400 Diastolic blood pressure 99 mm[Hg] Taussig (Trac) Work Phone: [facility] 09-02-2021 14:09-0400 Heart rate 105 /min Taussig (Trac) Work Phone: [facility] 09-02-2021 14:09-0400 Respiratory rate 22 /min Taussig (Trac) Work Phone: [facility] 09-02-2021 14:09-0400 SaO2% (BldA) [Mass fraction] 100 % Taussig (Trac) Work Phone: [facility] 09-02-2021 14:09-0400 Systolic blood pressure 135 mm[Hg] Juan R (Trac) Work Phone: [facility] 08-19-2021 11:57-0400 Body temperature 98.1 [degF] Godfrey Clayton RN [facility] 08-19-2021 11:57-0400 Respiratory rate 18 /min Godfrey Clayton RN [facility] 08-19-2021 10:05-0400 Body weight 113.81 kg Lalo Black MD Work Phone: [facility] 08-19-2021 10:05-0400 Diastolic blood pressure 102 mm[Hg] Lalo Black MD Work Phone: [facility] 08-19-2021 10:05-0400 Heart rate 90 /min Lalo Black MD Work Phone: [facility] 08-19-2021 10:05-0400 SaO2% (BldA) [Mass fraction] 96 % Lalo Black MD Work Phone: [facility] 08-19-2021 10:05-0400 Systolic blood pressure 136 mm[Hg] Lalo Black MD Work Phone: [facility] 08-08-2021 09:19-0400 Body temperature 99 [degF] Godfrey Maroli FURNACE ERECTOR.CONCRETE MIXER OPERATOR HELPER Work Phone: [facility] 08-08-2021 09:19-0400 Body weight 117.98 kg Godfrey Maroli FURNACE ERECTOR.CONCRETE MIXER OPERATOR HELPER Work Phone: [facility] 08-08-2021 09:19-0400 Diastolic blood pressure 98 mm[Hg] Godfrey Maroli FURNACE ERECTOR.CONCRETE MIXER OPERATOR HELPER Work Phone: [facility] 08-08-2021 09:19-0400 Heart rate 109 /min Godfrey Maroli FURNACE ERECTOR.CONCRETE MIXER OPERATOR HELPER Work Phone: [facility] 08-08-2021 09:19-0400 Respiratory rate 20 /min Godfrey Maroli FURNACE ERECTOR.CONCRETE MIXER OPERATOR HELPER Work Phone: [facility] 08-08-2021 09:19-0400 SaO2% (BldA) [Mass fraction] 95 % oGdfrey Ohara FURNACE ERECTOR.CONCRETE MIXER OPERATOR HELPER Work Phone: [facility] 08-08-2021 09:19-0400 Systolic blood pressure 141 mm[Hg] Godfrey Xochitl FURNACE ERECTOR.CONCRETE MIXER OPERATOR HELPER Work Phone: [facility] 08-06-2021 09:56-0400 Body temperature 98.1 [degF] Godfrey Clayton [facility] 08-06-2021 09:56-0400 Body weight 118.3 kg Godfrey Clayton RN [facility] 08-06-2021 09:56-0400 Diastolic blood pressure 92 mm[Hg] Godfrey Clayton [facility] 08-06-2021 09:56-0400 Heart rate 99 /min Godfrey Clayton [facility] 08-06-2021 09:56-0400 Respiratory rate 20 /min Godfrey Clayton [facility] 08-06-2021 09:56-0400 SaO2% (BldA) [Mass fraction] 99 % Godfrey Calyton [facility] 08-06-2021 09:56-0400 Systolic blood pressure 144 mm[Hg] Godfrey Clayton [facility] 07-31-2021 09:23-0400 Diastolic blood pressure 103 mm[Hg] Lalo Black MD Work Phone: [facility] 07-31-2021 09:23-0400 Heart rate 72 /min Lalo Black MD Work Phone: [facility] 07-31-2021 09:23-0400 Respiratory rate 12 /min Lalo Black MD Work Phone: [facility] 07-31-2021 09:23-0400 SaO2% (BldA) [Mass fraction] 95 % Lalo Black MD Work Phone: [facility] 07-31-2021 09:23-0400 Systolic blood pressure 147 mm[Hg] Lalo Black MD Work Phone: [facility] 07-24-2021 10:13-0400 Body temperature 98.29 [degF] Godfrey Maroli FURNACE ERECTOR.CONCRETE MIXER OPERATOR HELPER Work Phone: [facility] 07-24-2021 10:13-0400 Body weight 118 kg Godfrey Maroli FURNACE ERECTOR.CONCRETE MIXER OPERATOR HELPER Work Phone: [facility] 07-24-2021 10:13-0400 Diastolic blood pressure 92 mm[Hg] Godfrey Maroli FURNACE ERECTOR.CONCRETE MIXER OPERATOR HELPER Work Phone: [facility] 07-24-2021 10:13-0400 Heart rate 88 /min Godfrey Maroli FURNACE ERECTOR.CONCRETE MIXER OPERATOR HELPER Work Phone: [facility] 07-24-2021 10:13-0400 Respiratory rate 20 /min Godfrey Maroli FURNACE ERECTOR.CONCRETE MIXER OPERATOR HELPER Work Phone: [facility] 07-24-2021 10:13-0400 SaO2% (BldA) [Mass fraction] 99 % Godrfey Maroli FURNACE ERECTOR.CONCRETE MIXER OPERATOR HELPER Work Phone: [facility] 07-24-2021 10:13-0400 Systolic blood pressure 146 mm[Hg] Godfrey Maroli FURNACE ERECTOR.CONCRETE MIXER OPERATOR HELPER Work Phone: [facility] 07-21-2021 08:57-0400 Diastolic blood pressure 91 mm[Hg] Godfrey Clayton RN [facility] 07-21-2021 08:57-0400 Systolic blood pressure 146 mm[Hg] Godfrey Clayton RN [facility] 07-21-2021 08:49-0400 Body temperature 98.2 [degF] Godfrey Clayton RN [facility] 07-21-2021 08:49-0400 Heart rate 72 /min Godfrey Clayton RN [facility] 07-21-2021 08:49-0400 Respiratory rate 20 /min Godfrey Clayton RN [facility] 07-21-2021 08:49-0400 SaO2% (BldA) [Mass fraction] 99 % Godfrey Clayton RN [facility] 07-14-2021 14:42-0400 Body temperature 99.5 [degF] Godfrey Maroli FURNACE ERECTOR.CONCRETE MIXER OPERATOR HELPER Work Phone: [facility] 07-14-2021 14:42-0400 Body weight 118.48 kg Godfrey Maroli FURNACE ERECTOR.CONCRETE MIXER OPERATOR HELPER Work Phone: [facility] 07-14-2021 14:42-0400 Diastolic blood pressure 99 mm[Hg] Godfrey Maroli FURNACE ERECTOR.CONCRETE MIXER OPERATOR HELPER Work Phone: [facility] 07-14-2021 14:42-0400 Heart rate 77 /min Godfrey Maroli FURNACE ERECTOR.CONCRETE MIXER OPERATOR HELPER Work Phone: [facility] 07-14-2021 14:42-0400 Respiratory rate 20 /min Godfrey Maroli FURNACE ERECTOR.CONCRETE MIXER OPERATOR HELPER Work Phone: [facility] 07-14-2021 14:42-0400 SaO2% (BldA) [Mass fraction] 100 % Godfrey Maroli FURNACE ERECTOR.CONCRETE MIXER OPERATOR HELPER Work Phone: [facility] 07-14-2021 14:42-0400 Systolic blood pressure 143 mm[Hg] Godfrey Maroli FURNACE ERECTOR.CONCRETE MIXER OPERATOR HELPER Work Phone: [facility] 07-02-2021 11:53-0400 Diastolic blood pressure 89 mm[Hg] Kenneth Chester MD Work Phone: [facility] 07-02-2021 11:53-0400 Heart rate 71 /min Kenneth Chester MD Work Phone: [facility] 07-02-2021 11:53-0400 Respiratory rate 20 /min Kenneth Chester MD Work Phone: [facility] 07-02-2021 11:53-0400 SaO2% (BldA) [Mass fraction] 98 % Kenneth Chester MD Work Phone: [facility] 07-02-2021 11:53-0400 Systolic blood pressure 150 mm[Hg] Kenneth Chester MD Work Phone: [facility] 06-23-2021 10:56-0400 Body weight 115.03 kg Adriana Hodge MD Work Phone: [facility] 06-23-2021 10:56-0400 Diastolic blood pressure 92 mm[Hg] Adriana Hodge MD Work Phone: [facility] 06-23-2021 10:56-0400 Heart rate 59 /min Adriana Hodge MD Work Phone: [facility] 06-23-2021 10:56-0400 Systolic blood pressure 142 mm[Hg] Adriana Hodge MD Work Phone: [facility] 06-19-2021 19:35-0400 Body temperature 98.6 [degF] Family Unavailable [facility] 06-19-2021 19:35-0400 Diastolic blood pressure 90 mm[Hg] Family Unavailable [facility] 06-19-2021 19:35-0400 Heart rate 71 /min Family Unavailable [facility] 06-19-2021 19:35-0400 Respiratory rate 20 /min Family Unavailable [facility] 06-19-2021 19:35-0400 SaO2% (BldA) [Mass fraction] 100 % Family Unavailable [facility] 06-19-2021 19:35-0400 Systolic blood pressure 156 mm[Hg] Family Unavailable [facility] 06-19-2021 15:47-0400 Body height 180.[address] [facility] 06-19-2021 15:47-0400 Body mass index (BMI) [Ratio] 34.1 kg/m2 Family Unavailable [facility] 06-19-2021 15:47-0400 Body weight [address] [facility] Encounters Encounter Date Encounter Type Care Provider Facility Start: 10-16-2024 ambulatory Daksha Turner Faci lity:[facility] Start: 10-02-2024 End: 10-02-2024 ambulatory Daksha Turner [place] [place]: 10-02-2024 End: 10-02-2024 Patient encounter procedure Gini CONLEY -[facility] Work Phone: Start: 09-26-2024 Non-patient / Non-visit Gini plascencia NP-C -[facility] Work Phone: Start: 09-26-2024 ambulatory Daksha Arthuri lity:[facility] Start: 09-25-2024 ambulatory Daksha Turner Faci lity:[facility] Start: 09-25-2024 Non-patient / Non-visit Dr. De Leon Of [facility] Start: 09-25-2024 End: 09-25-[address] Daksha Turner MD Work Phone: [facility] [place] Start: 09-25-2024 End: 09-25-[address] Daksha Turner MD -[facility] Work Phone: Start: 09-25-2024 End: 09-25-[address] Daksha Turner MD Work Phone: -Cardiovascular Services Start: 09-25-2024 End: 09-25-2024 Patient encounter procedure Gini CONLEY -[facility] Work Phone: Start: 09-24-2024 End: 09-25-2024 ambulatory Daksha Turner Facility:[facility] Start: 09-24-2024 Non-patient / Non-visit [facility]. De Leon Of [facility] Start: 09-12-2024 ambulatory Daksha Nicholas lity:[facility] Start: 08-14-2024 End: 09-04-[address] Daksha Turner MD -Nutritional Services Work Phone: Start: 08-14-[address] Fazal Turner MD -Nutritional Services Work Phone: Start: 08-14-2024 End: 09-04-[address] Daksha Turner MD Work Phone: -Nutritional Services Start: 08-14-2024 End: 08-14-2024 Patient encounter procedure Gini CONLEY -[facility] Work Phone: Start: 08-14-2024 End: 08-14-[address] Daksha Turner MD Work Phone: [facility] Work Phone: Start: 08-14-2024 End: 08-14-2024 ambulatory Gini Couch Facility:[facility] Start: 08-01-2024 ambulatory Daksha Turner Factricia lity:BMS Start: 07-18-2024 ambulatory Daksha Turner Factricia lity:BMS Start: 06-20-2024 End: 06-20-[address] Daksha Turner MD Work Phone: [facility] Work Phone: Start: 06-20-2024 End: 06-20-[address] Dangelo Botello MD -[facility] Work Phone: Start: 06-20-2024 End: 06-20-2024 ambulatory Daksha Turner Facility:[facility] Start: 06-13-2024 End: 06-13-[address] Daksha Turner MD Work Phone: [facility] Work Phone: Start: 06-13-2024 End: 06-13-[address] Dangelo Botello MD -Cat [facility] Work Phone: Start: 06-13-2024 End: 06-13-2024 ambulatory Daksha Turner Facility:[facility] Start: 06-05-2024 End: 06-05-[address] Daksha Turner MD -Nutritional Services Work Phone: Start: 06-05-2024 End: 06-05-[address] Daksha Turner MD Work Phone: [facility] Work Phone: Start: 03-22-2024 End: 03-22-[address] Isidra Chiu DO -Laboratory Work Phone: Start: 03-22-2024 End: 03-22-2024 ambulatory Isidra Chiu Facility:[facility] Start: 02-08-2024 End: 02-08-[address] Daksha Turner MD -Jeni Segal, [facility] Work Phone: Start: 02-08-2024 End: 02-08-2024 ambulatory Daksha Turner Facility:[facility] Start: 01-11-2024 End: 01-11-2024 ambulatory Daksha Turner Facility:[facility] Start: 12-22-2023 End: 12-22-2023 ambulatory Daksha Turner [facility] Start: 12-22-2023 End: 12-22-2023 ambulatory Daksha Turner Facility:[facility] Start: 10-07-2023 End: 10-07-2023 [facility] Start: 05-27-2023 End: 05-27-[address] Jose Ramon Turner Work Phone: [facility] Work Phone: Start: 05-27-2023 End: 05-27-[address] Jose Ramon Turner Work Phone: [facility] [place] Work Phone: Start: 05-21-2023 End: 05-21-[address] Jose Ramon Turner Work Phone: [facility] Work Phone: Start: 05-21-2023 End: 05-21-[address] [facility] Work Phone: Start: 05-20-2023 End: 05-20-[address] Jose Ramon Turner Work Phone: [facility] Work Phone: Start: 05-20-2023 End: 05-20-[address] Jose Ramon Turner Work Phone: [facility]-Laboratory Work Phone: Start: 04-26-2023 End: 04-26-[address] Jose Ramon Turner Work Phone: [facility] Work Phone: Start: 04-26-2023 End: 04-26-[address] Jose Ramon Turner Work Phone: [facility]-Radiology, [place] Work Phone: Start: 04-12-[address] Fazal Turner Work Phone: [facility] Start: 04-12-2023 End: 04-12-[address] Jose Ramon Turner Work Phone: [facility] Work Phone: Start: 03-04-2023 End: 03-04-[address] Jose Ramon Turner Work Phone: [facility] Work Phone: Start: 03-04-2023 End: 03-04-[address] Jose Ramon Turner Work Phone: [facility]-Cat Scan, [facility] Work Phone: Start: 02-12-2023 End: 02-12-[address] Jose Ramon Turner Work Phone: [facility] Work Phone: Start: 02-12-2023 End: 02-12-[address] Jose Ramon Turner Work Phone: [facility]-Laboratory, Specimen Work Phone: Start: 12-30-2022 End: 12-30-[address] Jose Ramon Turner Work Phone: [facility] Work Phone: Start: 12-30-2022 End: 12-30-[address] Jose Ramon Turner Work Phone: [facility] Work Phone: Start: 12-17-2022 Non-patient / Non-visit Dr. Sejal Turner Work Phone: [facility] Work Phone: Start: 12-16-2022 End: 12-17-2022 Evaluation and management of inpatient Dr. Jose Ramon Turner Work Phone: [facility]-Progressive Care Unit Work Phone: Start: 12-16-2022 Non-patient / Non-visit Dr. Sejal Turner Work Phone: [facility] Work Phone: Start: 12-15-2022 Non-patient / Non-visit Dr. Sejal Turner Work Phone: [facility] Work Phone: Start: 11-12-2022 End: 11-12-[address] Jose Ramon Turner [facility] Phone[facility] Work [facility]: Start: 09-29-2022 End: 09-29-[address] Jose Ramon Turner Work Phone: [facility] Work Phone: Start: 09-03-2022 End: 09-03-[address] Jose Ramon Turner Work Phone: [facility] Work Phone: Start: 09-03-[address] Fazal Turner Work Phone: [facility] Oncology Start: 09-01-2022 End: 09-01-[address] Jose Ramon Turner Work Phone: [facility] Work Phone: Start: 09-01-2022 End: 09-01-[address] Jose Ramon Turner Work Phone: [facility] Work Phone: Start: 07-17-[address] Jose Ramon Turner Facility:[id number] Start: 07-16-2022 Non-patient / Non-visit Dr. Sejal Turner Work Phone: [facility] Start: 07-16-2022 End: 07-16-[address] Jose Ramon Turner Work Phone: [facility]-Pulmonary Services/Neurology Work Phone: Start: 06-29-2022 Non-patient / Non-visit Dr. Sejal Turner Work Phone: [facility] Inpatient Physicians Start: 06-28-2022 End: 06-29-2022 Evaluation and management of inpatient Dr. Jose Ramon Turner Work Phone: [facility]-Progressive Care Unit Start: 05-27-2022 End: 05-27-[address] Jose Ramon Turner Work Phone: [facility] Cancer Care Start: 05-27-2022 End: 05-27-[address] Jose Ramon Turner Work Phone: [facility] Group Start: 05-20-2022 Non-patient / Non-visit Dr. Sejal Turner Work Phone: [facility] Inpatient Physicians Start: 05-19-2022 Non-patient / Non-visit Dr. Sejal Turner Work Phone: [facility] Inpatient Phys[facility] Start: 05-18-2022 End: 05-20-2022 Evaluation and management of inpatient Dr. Jose Ramon Turner [facility] Start: 04-16-2022 Non-patient / Non-visit Dr. Sejal Turner Work Phone: [facility] Start: 04-15-2022 Non-patient / Non-visit Dr. Sejal Turner Work Phone: [facility] Inpatient Physicians Start: 04-15-2022 End: 04-15-2022 Non-patient / Non-visit Dr. Jose Ramon Turner Work Phone: [facility] Start: 04-14-2022 Non-patient / Non-visit Dr. Sejal Turner Work Phone: [facility] Start: 04-14-2022 Non-patient / Non-visit Dr. Sejal Turner Work Phone: [facility]patient Physicians Start: 04-13-2022 End: 04-16-2022 [facility] Start: 04-13-2022 End: 04-13-[address] Jose Ramon Turner Work Phone: [facility] Work Phone: Start: 04-13-2022 End: 04-13-2022 Patient encounter procedure [facility] Start: 04-09-2022 End: 04-10-2022 ambulatory DAKSHA TURNER Facility:[id number] Start: 04-09-2022 End: 04-09-2022 ambulatory Chair 7 [facility] Comment on above: Malignant neoplasm o f right kidney, except renal pelvis (HCC) (Primary Dx) Start: 04-03-2022 Postop follow up vis it related to original px Daksha Turner Work Phone: [facility]Hvf[facility]Yosgu[facility] 400 DO Work Phone: Start: 04-03-[address] Jose Ramon Turner Facility:[id number] Start: 04-02-2022 Telephone encounter America Schwartz keycase assembler Oncology Comment on above: Appointment Appointment (No show ) Start: 03-26-2022 ambulatory HAYLEE WILBURN Facility :[id number] Start: 03-26-2022 End: 03-26-2022 Subsequent hospital visit by physician Ct Prep [facility] Work Phone: Radiology CT Scan Comment on above: Malignant neoplasm o f right kidney, except renal pelvis [C64.1] Start: 03-25-2022 Telephone encounter Haylee Wilburn MD Work Phone: Hematology Oncology Comment on above: Appointment; Care Co ordinator - Other Start: 03-23-2022 ambulatory Haley Sadler RT(R) [facility] Medicine Comment on above: Radiology [place] Start: 03-23-2022 Patient encounter procedure Haley Sadler RT(R) [facility] Start: 03-23-2022 End: 03-23-2022 Subsequent hospital visit by physician [facility] 1 Work Phone: Nuclear Medicine Comment on above: Renal cell carcinoma of right kidney (HCC) [C64.1] Start: 03-16-2022 Refill Haylee Wilburn MD Work Phone: Hematology/Oncology Comment on above: Refill Request (Inly ta to [facility]) Start: 03-12-2022 ambulatory Malachi Schaffer [facility] Start: 03-12-2022 Patient encounter procedure Malachi Schaffer [facility] Comment on above: SPP Oral Oncology/he matology - Treatment Referral (Inlyta); Insurance Authorization (Pending PA) Start: 03-12-2022 Telephone encounter America Schwartz keycase assembler Oncology Comment on above: Appointment Start: 03-11-2022 End: 03-12-2022 ambulatory HAYLEE WILBURN Facility:[id number] Start: 03-11-2022 End: 03-11-2022 Office outpatient visit 25 minutes Haylee Wilburn MD Work Phone: Hematology Oncology Comment on above: Renal cell carcinoma of right kidney (HCC) (Primary Dx) Start: 02-26-2022 [id number] Start: 02-26-2022 End: 02-26-2022 Subsequent hospital visit by physician Echo Lab 3 [facility] Cardiology Comment on above: Acute decompensated heart failure (HCC) [I50.9] Start: 02-17-2022 End: 02-18-2022 ambulatory HAYLEE WILBURN Facility:[id number] Start: 02-17-2022 End: 02-17-2022 Office outpatient visit 25 minutes Haylee Wilburn MD Work Phone: Hematology Oncology Comment on above: Metastatic renal maggie l carcinoma, unspecified laterality (HCC) (Primary Dx) Start: 02-16-2022 End: 02-16-2022 ambulatory SAYRA TELLO Facility:[id number] Start: 02-16-2022 End: 02-16-2022 Office outpatient new 60 minutes Sayra Tello MD Work Phone: [facility] Cardiology Comment on above: Paroxysmal atrial fi brillation (HCC) (Primary Dx); Nonrheumatic mitral valve regurgitation; Acute decompensated heart failure (HCC); Essential hypertension; Tobacco use disorder; NIMCO (obstructive sleep apnea) Start: 02-13-2022 End: 02-14-2022 ambulatory SUMAN PETERSON Facility:[id number] Start: 02-13-2022 End: 02-13-2022 Patient encounter procedure Suman Peterson FURNACE ERECTOR.CONCRETE MIXER OPERATOR HELPER Work Phone: Radiation Oncology Comment on above: Renal cell carcinoma of right kidney metastatic to other site (HCC) (Primary Dx) Start: 02-11-2022 Chart abstracting Adrienne Lee MA [facility] Cardiology Start: 02-06-2022 [facility], Provider: Aravind Hernandez, Status: Pen, Time: 9:30 AM Daksha Turner Work Phone: [facility]whrfe[facility]Cisops[facility] 400 DO Work Phone: Start: 02-06-2022 End: 02-10-2022 Evaluation and management of inpatient Aravind Luzicson [place] [id number] Start: 02-05-2022 Telephone encounter Sayra Tello MD Work Phone: [facility] Cardiology Comment on above: Patient Question Start: 02-05-2022 Chart Update Daksha Turner Work Phone: [facility]-Mucqxip-Ousztbfv [facility] 400 DO Work Phone: Start: 02-03-2022 Chart Update Daksha Turner Work Phone: ZM-Sowgevh-Exbkxtgw [facility] 400 DO Work Phone: Start: 01-29-2022 End: 01-29-2022 Emergency department patient visit Dr. Jose Ramon Turner Work Phone: [facility]-Emergency Department Start: 01-27-[address] ARAVIND Barragan acility:[id number] Start: 01-27-2022 Encounter for blood typing Dr. ARAVIND RODRIGUEZ [facility] Start: 01-27-2022 Encounter for preprocedural laboratory examination Dr. ARAVIND RODRIGUEZ [facility] Start: 01-23-2022 ambulatory Krish Scott Work Phone: Urology Start: 01-22-2022 Refill Kitty cook PA-C Work Phone: Hematology Oncology Comment on above: Refill Request Start: 01-20-2022 End: 01-20-2022 Emergency department patient visit Dr. Jose Ramon Turner Work Phone: [facility]-Emergency Department Start: 01-19-2022 ambulatory KITTY Rojas ty:[id number] Start: 01-19-2022 End: 01-19-2022 Subsequent hospital visit by physician Xr [facility] 1 RADIO GEN [facility] Comment on above: Renal cell carcinoma of right kidney (HCC) [C64.1] Start: 2022 Patient encounter procedure Alfredo Xavier MD Work Phone: [facility] Start: 2022 Radiation Oncology Note Alfredo Xavier MD Work Phone: Radiation Oncology Comment on above: Completion Note Start: 12-30-2021 ambulatory Julee Nash RN [facility] Start: 12-30-2021 Telephone encounter Adriana glynn MD Work Phone: Urology Comment on above: Informed Consent Start: 12-28-2021 Telephone encounter Adriana glynn MD Work Phone: Urology Comment on above: Windows Vmware Administrator - O ther; Patient Update Start: 12-27-2021 Telephone encounter Adriana glynn MD Work Phone: Urology Comment on above: Patient Update Start: 12-26-2021 End: 12-26-2021 ambulatory ALFREDO XAVIER Facility:[id number] Start: 12-25-2021 End: 12-25-2021 ambulatory ALFREDO XAVIER Facility:[id number] Start: 12-24-2021 End: 12-24-2021 ambulatory ALFREDO XAVIER Facility:[id number] Start: 12-23-2021 End: 12-23-2021 ambulatory ALFREDO XAVIER Facility:[id number] Start: 12-22-2021 End: 12-22-2021 ambulatory ALFREDO XAVIER Facility:[id number] Start: 12-12-2021 Patient encounter procedure Alfredo Xavier MD Work Phone: [facility] Start: 12-12-2021 Radiation Oncology Note Alfredo Xavier MD Work Phone: Radiation Oncology Comment on above: Treatment Planning Simulation Note Start: 12-12-2021 End: 12-12-2021 ambulatory ALFREDO XAVIER Facility:[id number] Start: 12-09-2021 End: 12-09-2021 ambulatory Noreen Jean-Pierre Work Phone: [facility] [employer] [facility] Chronic Disease Management Start: 12-09-2021 FQ visit new patient Noreen Morejon Work Phone: [facility] Chronic Disease Management Comment on above: New patient, to genesis griggs relationship; Invalid number; Letter Request Start: 12-09-2021 End: 12-09-2021 Office outpatient visit 15 minutes Alfredo Xavier MD Work Phone: Radiation Oncology Comment on above: Renal cell carcinoma of right kidney (HCC) (Primary Dx) Start: 12-09-2021 Non-patient / Non-visit Dr. Sejal Turner Work Phone: [facility] Inpatient Physicians Start: 12-08-2021 Non-patient / Non-visit Dr. Sejal Turner Work Phone: [facility] Inpatient Physicians Start: 12-07-2021 Non-patient / Non-visit Dr. Sejal Turner Work Phone: [facility] Inpatient Physicians Start: 12-07-2021 End: 12-09-2021 Evaluation and management of inpatient [facility] Start: 11-29-2021 Telephone encounter Adriana glynn MD Work Phone: Urology Comment on above: Results; Patient Upd ate; Windows Vmware Administrator - Other Start: 11-24-2021 Telephone encounter America Schwartz RN Hematology Oncology Comment on above: Patient Update (Call ed patient to inform him that the speciality pharmacy is going to call to set-up delivery time for his chemo medication. Patient verbalized understanding. America Schwartz, RN, BSN, OCN/) Start: 11-20-2021 End: 11-20-2021 ambulatory DAKSHA TURNER Facility:[facility] Start: 11-20-2021 End: 11-20-2021 Subsequent hospital visit by physician Ct 2 Main Qb (I-Stat) Radiology Comment on above: Malignant neoplasm o f right kidney, except renal pelvis (HCC) [C64.1] Start: 11-19-2021 End: 11-20-2021 ambulatory HAYLEE WILBURN Facility:[id number] Start: 11-19-2021 End: 11-19-2021 Office outpatient visit 25 minutes Haylee Wilburn MD Work Phone: Hematology Oncology Comment on above: Metastatic renal maggie l carcinoma, unspecified laterality (HCC) (Primary Dx) Start: 11-06-2021 Telephone encounter Haylee pimentel Work Phone: Hematology Oncology Comment on above: Patient Update Windows Vmware Administrator - O ther (Calling to get an [...] is rescheduled.) Start: 10-27-2021 End: 10-28-2021 ambulatory [facility] Facility:[facility] Start: 10-27-2021 End: 10-27-2021 PAT Pac Main 2 Work Phone: Pre Anesthesia [...] without esophagitis; Prediabetes; Coronary artery disease involving [place] coronary artery of [place] heart, unspecified whether angina present PreOp Call (Cardiac Optimization, Warfarin Clearance) Start: 10-27-2021 End: 10-28-2021 ambulatory [facility] Facility:[facility] Start: 10-27-2021 Encounter for other preprocedural examination KENNETH CHESTER [facility] Start: 10-27-2021 End: 10-27-2021 Preprocedural examination done Pac Main 2 Work Phone: Pre Anesthesia Start: 10-21-2021 Telephone encounter Haylee Wilburn MD Work Phone: Hematology Oncology Comment on above: Medication Problem ( [facility] and canceled rx for cabzantinib and sent new order to [facility] pharmacy.) Refill Request Start: 10-20-2021 End: 10-21-2021 ambulatory HAYLEE WILBURN Facility:[id number] Start: 10-16-2021 Telephone encounter Kenneth mayorga MD Work Phone: Hematology/Oncology Comment on above: Windows Vmware Administrator - O ther Start: 10-14-2021 Telephone encounter Rahul Knight RN Hematology/Oncology Comment on above: Patient Update Patient Question Start: 10-09-2021 End: 10-10-2021 ambulatory KENNETH CHESTER Facility:[facility] Start: 10-09-2021 End: 10-09-2021 ambulatory Godfrey Ohara FURNACE ERECTOR.CONCRETE MIXER OPERATOR HELPER Work Phone: Hematology/Oncology Comment on above: Renal cell carcinoma of right kidney (HCC) (Primary Dx); Atrial fibrillation, unspecified type (HCC) Start: 10-09-2021 End: 10-09-2021 Nursing evaluation of patient and report Rahul Knight RN Hematology/Oncology Comment on above: Renal cell carcinoma of right kidney (HCC) (Primary Dx) Start: 10-09-2021 End: 10-09-2021 Patient encounter procedure Godfrey Ohara FURNACE ERECTOR.CONCRETE MIXER OPERATOR HELPER Work Phone: [facility] Start: 10-06-2021 ambulatory DAKSHA TURNER [facility] Start: 09-29-2021 Patient Outreach Safia martinez [facility] Work Phone: Pharmacy Comment on above: Transition Of Care ( Pharmacy - Hospital Discharge 09/26/21); Heart Failure Follow Up Phone Call (relate care discharge follow up-1st attempt-no contact-left vm) Start: 09-25-2021 End: 09-25-2021 ambulatory DAKSHA TURNER Facility:[facility] Start: 09-25-2021 End: 09-25-2021 Patient encounter procedure Ip Transesophageal Echo Cardiology Comment on above: Paroxysmal atrial fi brillation (HCC) (Primary Dx) Start: 09-22-2021 End: 09-26-2021 Evaluation and management of inpatient DAKSHA TURNER Facility:[facility] Start: 09-22-2021 End: 09-22-2021 ambulatory DAKSHA Gary JOHNNY Facility:[facility] Start: 09-22-2021 End: 09-22-2021 Patient encounter procedure Chaka Doris ALLEN Work Phone: Cardiology Comment on above: Paroxysmal atrial fi brillation (HCC) (Primary Dx); Mitral valve insufficiency, unspecified etiology; New onset a-fib (HCC); Essential hypertension; Mixed hyperlipidemia; Coronary artery disease involving [place] coronary artery of [place] heart with angina pectoris (HCC) Start: 09-19-2021 Telephone encounter Rahul Knight keycase assembler/Oncology Comment on above: Patient Question Start: 09-16-2021 Telephone encounter Rahul Knight keycase assembler/Oncology Comment on above: Patient Update Start: 09-11-2021 End: 09-12-2021 ambulatory DAKSHA TURNER Facility:[facility] Start: 09-11-2021 End: 09-11-2021 ambulatory Kenneth Chester [...] encounter procedure Kenneth Chester MD Work Phone: [facility] Start: 09-05-2021 Telephone encounter Kenneth mayorga MD Work Phone: Hematology/Oncology Comment on above: Windows Vmware Administrator - O ther Start: 09-04-2021 End: 09-04-2021 Evaluation and management of inpatient JANUSZEUNICE Gary JOHNNY Facility:[facility] Start: 09-02-2021 End: 09-04-2021 Evaluation and management of inpatient JANUSZEUNICE Abdirahman TURNER Facility:[facility] Start: 09-02-2021 End: 09-02-2021 ambulatory DAKSHA MELO Facility:[facility] Start: 09-02-2021 End: 09-02-2021 Subsequent hospital visit by physician Ct 2 Main Qb (I-Stat) Radiology Comment on above: SOB (shortness of br eath) [R06.02] Start: 09-02-2021 End: 09-03-2021 ambulatory JANUSZEUNICE MELO Hematology/Oncolo gy Comment on above: SOB (shortness of br eath) (Primary Dx) Start: 09-02-2021 End: 09-02-2021 Patient encounter procedure [facility] Work Phone: [facility] Start: 09-02-2021 Chart abstracting Godfrey Martinez Hematology/Oncology Start: 09-02-2021 End: 09-02-2021 Subsequent hospital visit by physician Xr Main Ca LLD Work Phone: Radiology Comment on above: SOB (shortness of br eath) [R06.02] Start: 09-01-2021 Telephone encounter Adriana glynn MD Work Phone: Urology Comment on above: Results; Patient Upd ate; Windows Vmware Administrator - Other Start: 08-27-2021 End: 08-27-2021 Orders Only Godfrey Ohara APRN.CONCRETE MIXER OPERATOR HELPER Work Phone: Hematology/Oncology Comment on above: Malignant neoplasm o f right kidney, except renal pelvis (HCC) (Primary Dx) Start: 08-20-2021 Orders Only Godfrey Bhardwaj i FURNACE ERECTORJohnCONCRETE MIXER OPERATOR HELPER Work Phone: Hematology/Oncology Comment on above: Malignant neoplasm o f right kidney, except renal pelvis (HCC) (Primary Dx); Malignant neoplasm of kidney excluding renal pelvis, unspecified laterality (HCC) Start: 08-19-2021 End: 08-19-2021 [facility] Start: 08-19-2021 End: 08-19-2021 Nursing evaluation of patient and report Godfrey Clayton keycase assembler/Oncology Comment on above: Renal cell carcinoma , unspecified laterality (HCC) (Primary Dx) Start: 08-19-2021 End: 08-19-2021 Patient encounter procedure Godfrey Ohara APRN.CONCRETE MIXER OPERATOR HELPER Work Phone: [facility] Start: 08-19-2021 End: 08-20-2021 ambulatory Godfrey Ohara APRN.CONCRETE MIXER OPERATOR HELPER Work Phone: Hematology/Oncology Comment on above: Renal cell carcinoma , unspecified laterality (HCC) (Primary Dx); Hypertension, unspecified type Start: 08-19-2021 End: 08-19-2021 Patient encounter procedure Lalo Black MD Work Phone: Cardiology Comment on above: Pedal edema (Primary Dx); Essential hypertension; Coronary artery disease involving [place] coronary artery of [place] heart without angina pectoris; Disturbance in sleep behavior Start: 08-18-2021 ambulatory Godfrey Bhardwaj i, APRN.CONCRETE MIXER OPERATOR HELPER Work Phone: Hematology/Oncology Comment on above: Opened In Error Start: 08-18-2021 Telephone encounter Godfrey Clayton RN Hematology/Oncology Comment on above: Research ([facility] 1819) Start: 08-17-2021 End: 08-17-2021 Emergency department patient visit KIMOELA TURNER Facility:[facility] Start: 08-16-2021 ambulatory Lalo Black MD Work Phone: Cardiology Comment on above: Elevated Blood Press ures Start: 08-13-2021 Telephone encounter Godfrey Clayton keycase assembler/Oncology Comment on above: Research ([facility] 1819) Start: 08-12-2021 Refill Godfrey Bhardwaj i, APRN.CONCRETE MIXER OPERATOR HELPER Work Phone: Hematology/Oncology Comment on above: Refill Request Start: 08-12-2021 Telephone encounter Lalo mauricio MD Work Phone: Cardiology Comment on above: Blood Pressure Research ([facility] 1819) Start: 08-11-2021 Telephone encounter Hermila Ruiz RN Work Phone: Hematology/Oncology Comment on above: Research ([facility] 1819) Start: 08-08-2021 End: 08-08-2021 ambulatory Lab Port/Jaqueline Cullen Main Ca 1 Work Phone: Hematology/Oncology Comment on above: Malignant neoplasm o f right kidney, except renal pelvis (HCC) Renal cell carcinoma , unspecified laterality (HCC) (Primary Dx) Other specified diso rders of kidney and ureter Start: 08-08-2021 End: 08-09-2021 ambulatory [facility] Facility:[facility] Start: 08-08-2021 End: 08-09-2021 ambulatory Chair 1 Breast Work Phone: Hematology/Oncology Comment on above: Renal cell carcinoma of right kidney (HCC) (Primary Dx) Start: 08-08-2021 End: 08-08-2021 Nursing evaluation of patient and report Godfrey Clayton keycase assembler/Oncology Comment on above: Renal cell carcinoma of right kidney (HCC) (Primary Dx) Start: 08-08-2021 End: 08-08-2021 Patient encounter procedure Godfrey Ohara APRN.CONCRETE MIXER OPERATOR HELPER Work Phone: [facility] Start: 08-06-2021 End: 08-06-2021 ambulatory [facility] Facility:[facility] Start: 08-06-2021 Chart abstracting Godfrey acuña APRN.CONCRETE MIXER OPERATOR HELPER Work Phone: Hematology/Oncology Start: 08-06-2021 End: 08-07-2021 [facility] Start: 08-06-2021 End: 08-06-2021 Subsequent hospital visit by physician Ct Prep Qb Radiology Comment on above: Malignant neoplasm o f kidney, unspecified laterality (HCC) [C64.9] Start: 08-06-2021 End: 08-06-2021 ambulatory Godfrey Ohara APRN.CONCRETE MIXER OPERATOR HELPER Work Phone: Hematology/Oncology Comment on above: Renal cell carcinoma , unspecified laterality (HCC) (Primary Dx); Hypertension, unspecified type Start: 08-06-2021 End: 08-06-2021 Nursing evaluation of patient and report Godfrey Clayton keycase assembler/Oncology Comment on above: Renal cell carcinoma of right kidney (HCC) (Primary Dx) Start: 08-06-2021 End: 08-06-2021 Patient encounter procedure Godfrey Ohara FURNACE ERECTOR.CONCRETE MIXER OPERATOR HELPER Work Phone: [facility] Start: 08-05-2021 End: 08-06-2021 ambulatory ATUL FUNG Facility:[facility] Start: 08-03-2021 Telephone encounter Atul Fung MD Work Phone: Cardiology Comment on above: Patient Education Start: 07-31-2021 End: 07-31-2021 ambulatory LALO WISHANTAKenyon Facility:[facility] Start: 07-31-2021 End: 07-31-2021 ambulatory LALO WISHANTAKenyon Facility:[facility] Start: 07-31-2021 End: 07-31-2021 Patient encounter procedure Lalo Black MD Work Phone: Cardiology Comment on above: Nonrheumatic mitral valve regurgitation (Primary Dx) Start: 07-30-2021 Telephone encounter Tayler Moss RN Cardiology Comment on above: Patient Education (t ee) Start: 07-29-2021 Telephone encounter Godfrey Clayton RN Hematology/Oncology Comment on above: Research ([facility] 1819) Start: 07-28-2021 Orders Only Godfrey Bhardwaj i, APRN.CONCRETE MIXER OPERATOR HELPER Work Phone: Hematology/Oncology Comment on above: Malignant neoplasm o f right kidney, except renal pelvis (HCC) (Primary Dx); Malignant neoplasm of kidney excluding renal pelvis, unspecified laterality (HCC) Start: 07-25-2021 Chart abstracting Rahul ([facility] Roberto Bennett Work Phone: Hematology/Oncology Start: 07-25-2021 Telephone encounter Godfrey Clayton RN Hematology/Oncology Comment on above: Research ([facility] 1819) Start: 07-24-2021 Telephone encounter Godfrey nixon APRN.CONCRETE MIXER OPERATOR HELPER Work Phone: Hematology/Oncology Comment on above: Results Start: 07-24-2021 End: 07-24-2021 ambulatory KENNETH CHESTER Facility:[facility] Start: 07-24-2021 End: 07-25-2021 ambulatory Godfrey Ohara APRN.CONCRETE MIXER OPERATOR HELPER Work Phone: Hematology/Oncology Comment on above: Malignant neoplasm o f kidney excluding renal pelvis, unspecified laterality (HCC) (Primary Dx); Metastatic renal cell carcinoma, unspecified laterality (HCC) Start: 07-24-2021 End: 07-24-2021 Nursing evaluation of patient and report Godfrey Clayton RN Hematology/Oncology Comment on above: Renal cell carcinoma of right kidney (HCC) (Primary Dx) Start: 07-24-2021 End: 07-24-2021 Patient encounter procedure Godfrey Ohara APRN.CONCRETE MIXER OPERATOR HELPER Work Phone: [facility] Start: 07-23-2021 Telephone encounter Godfrey Clayton RN Hematology/Oncology Comment on above: Research ([facility] 1820) Start: 07-22-2021 End: 07-22-2021 ambulatory Lalo Black MD Work Phone: Cardiology Comment on above: Nonrheumatic mitral valve regurgitation (Primary Dx); Cardiomyopathy, nonischemic (HCC) Start: 07-22-2021 End: 07-22-2021 Telemedicine consultation with patient Lalo Black MD Work Phone: [facility] Start: 07-21-2021 Chart abstracting Godfrey acuña APRN.CONCRETE MIXER OPERATOR HELPER Work Phone: Hematology/Oncology Start: 07-21-2021 Telephone encounter Financial Navigator Cullen Work Phone: Hematology/Oncology Comment on above: Benefits Investigati on Start: 07-21-2021 End: 07-21-2021 Nursing evaluation of patient and report Godfrey Clayton RN Hematology/Oncology Comment on above: Malignant neoplasm o f kidney excluding renal pelvis, unspecified laterality (HCC) (Primary Dx) Start: 07-21-2021 End: 07-21-2021 Subsequent hospital visit by physician Ct Main Ca Work Phone: Radiology Comment on above: Malignant neoplasm o f right kidney, except renal pelvis (HCC) [C64.1] Malignant neoplasm o f kidney excluding renal pelvis, unspecified laterality (HCC) [C64.9] Start: 07-21-2021 End: 07-22-2021 ambulatory Lab Port/Parsons Cullen Main Ca 1 Work Phone: Hematology/Oncology Comment on above: Malignant neoplasm o f right kidney, except renal pelvis (HCC) Start: 07-17-2021 End: 07-17-2021 Patient encounter procedure [facility] Start: 07-15-2021 End: 07-15-2021 ambulatory KENNETH CHESTER Facility:[facility] Start: 07-14-2021 End: 07-15-2021 Orders Only Godfrey Ohara APRN.CNP Work Phone: Hematology/Oncology Comment on above: Malignant neoplasm o f kidney excluding renal pelvis, unspecified laterality (HCC) (Primary Dx); Renal cell carcinoma, unspecified laterality (HCC) Malignant neoplasm o f right kidney, except renal pelvis (HCC) (Primary Dx) Anxiety (Primary Dx) Start: 07-11-2021 Telephone encounter Godfrey Clayton RN Hematology/Oncology Comment on above: Research ([facility] 1820) Malignant neoplasm o f right kidney, except renal pelvis (HCC) (Primary Dx); Malignant neoplasm of kidney excluding renal pelvis, unspecified laterality (HCC) Start: 07-08-2021 End: 07-08-2021 ambulatory KENNETH CHESTER Facility:[facility] Start: 07-08-2021 End: 07-08-2021 Nursing evaluation of patient and report Godfrey Clayton RN Hematology/Oncology Comment on above: Malignant neoplasm o f kidney excluding renal pelvis, unspecified laterality (HCC) (Primary Dx) Start: 07-07-2021 Telephone encounter Godfrey Clayton RN Hematology/Oncology Comment on above: Research ([facility] 1820) Start: 07-02-2021 End: 07-02-2021 ambulatory Kenneth Chester MD Work Phone: Hematology/Oncology Comment on above: Malignant neoplasm o f kidney, unspecified laterality (HCC); Malignant neoplasm of kidney excluding renal pelvis, unspecified laterality (HCC); Chest wall mass Start: 07-02-2021 End: 07-02-2021 Patient encounter procedure Kenneth Chester MD Work Phone: [facility] Start: 07-01-2021 End: 07-01-2021 ambulatory ANNE-MARIE CHAPARRO Facility:[facility] Start: 06-30-2021 End: 07-01-2021 ambulatory JOHN GTZ Facility:[facility] Start: 06-30-2021 End: 06-30-2021 Subsequent hospital visit by physician [facility] Comment on above: Malignant neoplasm o f kidney, unspecified laterality (HCC) [C64.9] Start: 06-30-2021 End: 06-30-2021 ambulatory ADRIANA HOGDE Facility:[facility] Start: 06-30-2021 End: 06-30-2021 Subsequent hospital visit by physician [facility] Start: 06-27-2021 End: 06-27-2021 ambulatory ADRIANA HODGE Facility:[facility] Start: 06-27-2021 End: 06-27-2021 Subsequent hospital visit [...] 06-20-2021 End: 06-20-2021 ambulatory DAWIT URBINA MD Facility:[facility] Start: 06-19-2021 End: 06-19-2021 Emergency department patient visit Family Physician Unavailable Facility:[facility] Start: 06-19-2021 End: 06-19-2021 Emergency department patient visit Family Unavailable [facility] Start: 06-30-2004 End: 11-26-2014 Patient encounter status Ekg/Holter Courtney Work Phone: [facility] Procedures Date Procedure Procedure Detail Performing Clinician Start: 09-25-[address] Daksha Turner MD Work Phone: Start: 09-25-2024 Vitamin D, 25-hydrox y measurement Dr. Daksha Turner MD Work Phone: Comment on above: Vitamin D StatusDefi ciency: <20 ng/mL (50nmol/L)Insufficiency: 20-30 ng/mL (50-75 nmol/L)Sufficiency: 30-100 ng/mL (75-250 nmol/L)Toxicity: >100 ng/mL (>250 nmol/L) Start: 09-25-2024 Cardiovascular stres s test using pharmacologic stress agent Dr. Daksha Turner MD Work Phone: Start: 06-13-[address] Sejal Turner [...] above: Performed By: #### T +S #### [address] [address] Start: 01-29-2022 Plain chest X-ray Dr. Tangela Turner Work Phone: Start: 01-27-[address] JULIENNE HERNANDEZ Comment on above: Performed By: #### C BC #### [address] [address] Start: 01-20-2022 Plain chest X-ray Dr. Tangela [...] Work Phone: Start: 10-27-2021 Antibody screen KENNETH Martin MCDERMOTT Comment on above: Order Comment: Speci men Type: BLOOD SPECIMENOrdering Facility: [facility] Address: [address] [place] [address] Performed By: #### T [id number] ####CC MAIN BLOOD BANKCLIA [id number] [place] [address] [place] Start: 10-20-2021 Adult depression scr eening assessment Haylee Wilburn MD Work Phone: Start: 09-23-2021 Lipid 1996 panel - S desirae or Plasma Ekg/Holter [facility] Work Phone: Start: 09-22-2021 End: 09-22-2021 Ecg [...] Detail Author Start: 07-25-2028 Urine microalbumin profile [facility] Start: 09-23-2026 Lipid panel Lipid Screening [facility] Start: 09-23-2026 LIPID SCREEN LIPID SCREEN [facility] Start: 04-09-2025 DIABETES SCREEN [facility] Start: 04-09-2025 Diabetes Screening Diabetes Screenin g [facility] Start: 02-17-2025 DI[address]ET[facility]CREEN [facility] Start: 11-05-2024 LIPID SCREEN LIPID SCREEN [facility] Start: 11-05-2024 PROSTATE CANCER SCRE ENING DISCUSSION PROSTATE CANCER SCREENING DISCUSSION [facility] Start: 11-05-2024 Prostate specific an tigen measurement Prostate Cancer Screening Discussion [facility] Start: 10-27-2024 DI[address]ES SCREEN [facility]CREEN [facility] Start: 10-09-2024 DIABETES SCREEN [facility]CREEN [facility] Start: 09-26-2024 DIABETES SCREEN [facility]ET[facility]CREEN [facility] Start: 09-11-2024 DIABETES SCREEN [facility]CRE[facility] Start: 09-03-2024 DIABETES SCREEN [facility]ET[facility]CREEN [facility] Start: 09-02-2024 DIABETES SCREEN [facility]CREEN [facility] Start: 08-19-2024 DI[address]ETES SCREEN [facility]ABETES SCREEN [facility] Start: 08-17-2024 DI[address]ES S[address]EN [facility]CREEN [facility] Start: 08-14-2024 Evaluation of diagno stic study results [facility] Start: 08-08-2024 [address] [facility]CREEN [facility] Start: 08-06-2024 DI[address]ETES SCREEN [facility]CREEN [facility] Start: 07-24-2024 DI[address]ETES SCREEN [facility]CRE[facility] Start: 07-21-2024 DIABETES SCREEN [facility] Start: 06-20-2024 DI[address]ETES SCREEN [facility] Start: 11-07-2023 Covid-19 Vaccine ( season) Covid-19 Vaccine ( season) [facility] Start: 11-07-2023 Influenza vaccination Influenza Vacc ine (#1) [facility] Start: 02-16-2023 BP CONTROLLED (<130/80) BP CON TROLLED (<130/80) [facility] Start: 12-17-2022 Patient discharge [facility] Start: 12-16-2022 Admission procedure [facility] Start: 12-15-2022 End: 12-16-2022 [facility] Start: 12-15-2022 Continuous positive airway pressure ventilation treatment [facility] Start: 12-15-2022 Ambulation without limitation [facility] Start: 12-15-2022 Assessment of risk o f venous thromboembolism [facility] Start: 12-15-2022 Fluid restriction [facility] Start: 12-15-2022 Insertion of cathete r into peripheral vein [facility] Start: 12-15-2022 Measuring intake and output [facility] Start: 12-15-2022 Oxygen therapy [facility] Start: 12-15-2022 Providing care accor ding to standard [facility] Start: 12-15-2022 Referral to service [facility] Start: 12-15-2022 Admission procedure [facility] Start: 12-15-2022 Following clinical p athway protocol [facility] Start: 12-15-2022 Transfusion of blood product [facility] Start: 12-15-2022 Patient referral to dietitian [facility] Start: 10-20-2022 Adult depression scr eening assessment DEPRESSION SCREENING [facility] Start: 09-23-2022 BP CONTROLLED (<130/80) BP CON TROLLED (<130/80) [facility] Start: 09-23-2022 Hepatitis B surface antibody level LDL CHOLESTEROL [facility] Start: 07-06-2022 FUV, Provider: Aravind Hernandez, Status: Pen, Time: 1:40 PM FUV, Provider: Aravind Hernandez, Status: Pen, Time: 1:40 PM [id number] SJW 400 DO Work Phone: Start: 06-29-2022 Patient discharge [facility] Start: 06-28-2022 Following clinical p athway protocol [facility] Start: 06-28-2022 Assessment of risk o f venous thromboembolism [facility] Start: 06-28-2022 Continuous positive airway pressure ventilation treatment [facility] Start: 06-28-2022 Inhalation therapy procedure [facility] Start: 06-28-2022 Insertion of cathete r into peripheral vein [facility] Start: 06-28-2022 Introduction of urin rebecca catheter [facility] Start: 06-28-2022 Measuring intake and output [facility] Start: 06-28-2022 Oxygen therapy [facility] Start: 06-28-2022 End: 06-28-2022 Patient referral to dietitian [facility] Start: 06-28-2022 Providing care accor ding to [facility] Start: 06-28-2022 Provision of activit y privileges [facility] Start: 06-28-2022 Referral to service [facility] Start: 06-28-2022 End: 06-28-2022 [facility] Start: 06-28-2022 Verification routine [facility] Start: 06-28-2022 Admission procedure [facility] Start: 06-27-2022 Troponin I measurement [facility] Start: 06-27-2022 [facility] Start: 06-20-2022 ANNUAL PCP TEAM WAREHOUSE SHIPPING ASSOCIATE SEFERINO DISEASE VISIT ANNUAL PCP TEAM CHRONIC DISEASE VISIT [facility] Start: 05-27-2022 Patient referral [facility] Work Phone: Start: 05-20-2022 Patient discharge [facility] Start: 05-19-2022 Continuous positive airway pressure ventilation treatment [facility] Start: 05-18-2022 Dual pressure sponta neous ventilation support [facility] Start: 05-18-2022 Following clinical p athway protocol [facility] Start: 05-18-2022 Assessment of risk o f venous thromboembolism [facility] Start: 05-18-2022 Continuous pulse oximetry [facility] Start: 05-18-2022 Insertion of cathete r into peripheral vein [facility] Start: 05-18-2022 Measuring intake and output [facility] Start: 05-18-2022 Oxygen therapy [facility] Start: 05-18-2022 Providing care accor ding to [facility] Start: 05-18-2022 Provision of activit y privileges [facility] Start: 05-18-2022 [facility] Start: 05-18-2022 Verification routine [facility] Start: 05-18-2022 Admission procedure [facility] Start: 05-18-2022 [facility] Start: 05-18-2022 Patient referral to dietitian [facility] Start: 04-17-2022 Prothrombin time [facility] Start: 04-16-2022 Patient discharge [facility] Start: 04-16-2022 Prothrombin time [facility] Start: 04-16-2022 Oxygen therapy [facility] Start: 04-15-2022 [facility] Start: 04-15-2022 Prothrombin time [facility] Start: 04-14-2022 Continuous pulse oximetry [facility] Start: 04-14-2022 [facility] Start: 04-14-2022 Application of intermittent pneumatic compression device [facility] Start: 04-14-2022 Following clinical p athway protocol [facility] Start: 04-14-2022 Chemotherapy care management [facility] Start: 04-14-2022 Elevation of affecte d extremity [facility] Start: 04-14-2022 Fluid restriction [facility] Start: 04-14-2022 Notification of physician [facility] Start: 04-14-2022 Patient education [facility] Start: 04-14-2022 End: 04-14-2022 [facility] Start: 04-14-2022 Continuous positive airway pressure ventilation treatment [facility] Start: 04-13-2022 Admission procedure [facility] Start: 03-25-2022 End: 05-25-2022 CBC W Auto Differential panel - Blood CBC + DIFF Lab Routine Renal cell carcinoma of right kidney (HCC) Expected: 03/25/2022, Expires: 05/25/2022 [facility] Work Phone: Comment on above: Expected: 03/25/2022 , Expires: 05/25/2022 Start: 03-25-2022 End: 05-25-2022 Comprehensive metabolic 2000 panel - Serum or Plasma COMP METABOLIC PANEL Lab Routine Renal cell carcinoma of right kidney (HCC) Expected: 03/25/2022, Expires: 05/25/2022 [facility] Work Phone: Comment on above: Expected: 03/25/2022 , Expires: 05/25/2022 Start: 03-25-2022 End: 05-25-2022 Thyrotropin [Units/volume] in Serum or Plasma TSH BLD Lab Routine Renal cell carcinoma of right kidney (HCC) Expected: 03/25/2022, Expires: 05/25/2022 [facility] Work Phone: Comment on above: Expected: 03/25/2022 , Expires: 05/25/2022 Start: 03-08-2022 DEPRESSION ASSESSMENT DEPRESSION ASS ESSMENT [facility] Start: 02-16-2022 End: 04-18-2022 Basic metabolic 2000 panel - Serum or Plasma BASIC METABOLIC PNL Lab Routine Acute decompensated heart failure (HCC) Paroxysmal atrial fibrillation (HCC) Expected: 02/16/2022, Expires: 04/18/2022 [facility] Work Phone: Comment on above: Expected: 02/16/2022 , Expires: 04/18/2022 Start: 02-08-2022 End: 02-09-2023 Bisacodyl Rectal 10 mg Suppository Daily PRN ; Suppository (DULCOLAX)DOSE = 10 mg Rectal Daily, PRN Constipation Start: 08-Feb-2022 End: 08-Feb-2023 Ordered: 08-Feb-2022 Deep Tamez Intent [facility] Start: 02-06-2022 End: 02-07-2023 [facility] Comment on above: Minimize narcotics May be [...] reaches 100 mg/dL or greater. Start: 02-06-2022 [facility], Provider: Aravind Hernandez, Status: Pen, Time: 9:30 AM [facility], Provider: Aravind Hernandez, Status: Pen, Time: 9:30 AM [id number] SJW 400 DO Work Phone: Start: 01-29-2022 Chemotherapy care management [facility] Start: 01-20-2022 Plain chest X-ray Chest 1 View (Portable) [facility] Work Phone: Start: 01-20-2022 XR Chest Single view [facility] Work Phone: Start: 12-30-2021 End: 03-01-2022 aPTT in Platelet poor plasma by Coagulation assay ACTIVATED PTT Lab Routine Renal cell carcinoma of right kidney (HCC) Expected: 12/30/2021 (Approximate), Expires: 03/01/2022 [facility] Work Phone: Comment on above: Expected: 12/30/2021 (Approximate), Expires: 03/01/2022 Start: 12-30-2021 End: 03-01-2022 CBC panel - Blood by Automated count CBC Lab Routine Renal cell carcinoma of right kidney (HCC) Expected: 12/30/2021 (Approximate), Expires: 03/01/2022 [facility] Work Phone: Comment on above: Expected: 12/30/2021 (Approximate), Expires: 03/01/2022 Start: 12-30-2021 End: 03-01-2022 Comprehensive metabolic 2000 panel - Serum or Plasma COMP METABOLIC PANEL Lab Routine Renal cell carcinoma of right kidney (HCC) Expected: 12/30/2021 (Approximate), Expires: 03/01/2022 [facility] Work Phone: Comment on above: Expected: 12/30/2021 (Approximate), Expires: 03/01/2022 Start: 12-30-2021 End: 03-01-2022 CONFIRM BLOOD TYPE CONFIRM BLOOD TYPE Blood Bank Routine Renal cell carcinoma of right kidney (HCC) Expected: 12/30/2021 (Approximate), Expires: 03/01/2022 [facility] Work Phone: Comment on above: Expected: 12/30/2021 (Approximate), Expires: 03/01/2022 Start: 12-30-2021 End: 03-01-2022 PT panel - Platelet poor plasma by Coagulation assay PROTHROMBIN TIME/PT Lab Routine Renal cell carcinoma of right kidney (HCC) Expected: 12/30/2021 (Approximate), Expires: 03/01/2022 [facility] Work Phone: Comment on above: Expected: 12/30/2021 (Approximate), Expires: 03/01/2022 Start: 12-30-2021 End: 12-30-2022 SARS-CoV-2 (COVID-19) RNA [Presence] in Respiratory specimen by SANDOVAL with probe detection PRE-PROCEDURE & PRE-OPERATIVE COVID Microbiology Routine Renal cell carcinoma of right kidney (HCC) Expected: 12/30/2021, Expires: 12/30/2022 [facility] Work Phone: Comment on above: Expected: 12/30/2021 , Expires: 12/30/2022 Start: 12-30-2021 End: 03-01-2022 TYPE AND SCREEN,30 DAY TYPE AND SCREEN,30 DAY Blood Bank Routine Renal cell carcinoma of right kidney (HCC) Expected: 12/30/2021 (Approximate), Expires: 03/01/2022 [facility] Work Phone: Comment on above: Expected: 12/30/2021 (Approximate), Expires: 03/01/2022 Start: 12-09-2021 Patient discharge [facility] Work Phone: Start: 12-08-2021 Inhalation therapy procedure [facility] Work Phone: Start: 12-07-2021 Chemotherapy care management [facility] Work Phone: Start: 12-07-2021 Ambulation without limitation [facility] Work Phone: Start: 12-07-2021 Assessment of risk o f venous thromboembolism [facility] Work Phone: Start: 12-07-2021 Catheterization of vein [facility] Work Phone: Start: 10-02-2022 Insertion of cathete r into peripheral vein [facility] Work Phone: Start: 12-07-2021 Measuring intake and output [facility] Work Phone: Start: 12-07-2021 Providing care accor ding to standard [facility] Work Phone: Start: 12-07-2021 [facility] Work Phone: Start: 12-07-2021 Verification routine [facility] Work Phone: Start: 12-07-2021 Admission procedure [facility] Work Phone: Start: 12-07-2021 Following clinical p athway protocol [facility] Work Phone: Start: 12-07-2021 Troponin I measurement [facility] Work Phone: Start: 12-06-2021 Influenza [facility] Start: 11-06-2021 Influenza vaccination [facility] Start: 10-16-2021 End: 10-17-2021 aPTT in Platelet poor plasma by Coagulation assay ACTIVATED PTT Lab STAT Malignant neoplasm of right kidney, except renal pelvis (HCC) Expected: 10/16/2021, Expires: 10/17/2021 [facility] Work Phone: Comment on above: Expected: 10/16/2021 , Expires: 10/17/2021 Start: 10-16-2021 End: 10-17-2021 CBC W Auto Differential panel - Blood CBC + DIFF Lab STAT Malignant neoplasm of right kidney, except renal pelvis (HCC) Expected: 10/16/2021, Expires: 10/17/2021 [facility] Work Phone: Comment on above: Expected: 10/16/2021 , Expires: 10/17/2021 Start: 10-16-2021 End: 10-17-2021 Comprehensive metabolic 2000 panel - Serum or Plasma COMP METABOLIC PANEL Lab STAT Malignant neoplasm of right kidney, except renal pelvis (HCC) Expected: 10/16/2021, Expires: 10/17/2021 [facility] Work Phone: Comment on above: Expected: 10/16/2021 , Expires: 10/17/2021 Start: 10-16-2021 End: 09-26-2022 Ct abdomen & pelvis w/contrast material CT ABD/PEL W IVCON Radiology Routine Malignant neoplasm of right kidney, except renal pelvis (HCC) Expected: 10/16/2021, Expires: 09/26/2022 [facility] Work Phone: Comment on above: Expected: 10/16/2021 , Expires: 09/26/2022 Start: 10-16-2021 End: 09-26-2022 Ct thorax w/contrast material CT CHEST W IVCON Radiology Routine Malignant neoplasm of right kidney, except renal pelvis (HCC) Expected: 10/16/2021, Expires: 09/26/2022 [facility] Work Phone: Comment on above: Expected: 10/16/2021 , Expires: 09/26/2022 Start: 10-16-2021 End: 10-17-2021 Lactate dehydrogenase [Enzymatic activity/volume] in Serum or Plasma LD LACTATE DEHYDRO Lab STAT Malignant neoplasm of right kidney, except renal pelvis (HCC) Expected: 10/16/2021, Expires: 10/17/2021 [facility] Work Phone: Comment on above: Expected: 10/16/2021 , Expires: 10/17/2021 Start: 10-16-2021 End: 10-17-2021 Magnesium [Mass/volume] in Serum or Plasma MAGNESIUM BLD Lab STAT Malignant neoplasm of right kidney, except renal pelvis (HCC) Expected: 10/16/2021, Expires: 10/17/2021 [facility] Work Phone: Comment on above: Expected: 10/16/2021 , Expires: 10/17/2021 Start: 10-16-2021 End: 10-17-2021 Phosphate [Mass/volume] in Serum or Plasma PHOSPHORUS INORGANIC Lab STAT Malignant neoplasm of right kidney, except renal pelvis (HCC) Expected: 10/16/2021, Expires: 10/17/2021 [facility] Work Phone: Comment on above: Expected: 10/16/2021 , Expires: 10/17/2021 Start: 10-16-2021 End: 10-17-2021 PT panel - Platelet poor plasma by Coagulation assay PROTHROMBIN TIME/PT Lab STAT Malignant neoplasm of right kidney, except renal pelvis (HCC) Expected: 10/16/2021, Expires: 10/17/2021 [facility] Work Phone: Comment on above: Expected: 10/16/2021 , Expires: 10/17/2021 Start: 10-16-2021 End: 10-17-2021 Urate [Mass/volume] in Serum or Plasma URIC ACID BLOOD Lab STAT Malignant neoplasm of right kidney, except renal pelvis (HCC) Expected: 10/16/2021, Expires: 10/17/2021 [facility] Work Phone: Comment on above: Expected: 10/16/2021 , Expires: 10/17/2021 Start: 10-02-2021 End: 10-03-2021 aPTT in Platelet poor plasma by Coagulation assay ACTIVATED PTT Lab STAT Malignant neoplasm of right kidney, except renal pelvis (HCC) Expected: 10/02/2021, Expires: 10/03/2021 [facility] Work Phone: Comment on above: Expected: 10/02/2021 , Expires: 10/03/2021 Start: 10-02-2021 End: 10-03-2021 CBC W Auto Differential panel - Blood CBC + DIFF Lab STAT Malignant neoplasm of right kidney, except renal pelvis (HCC) Expected: 10/02/2021, Expires: 10/03/2021 [facility] Work Phone: Comment on above: Expected: 10/02/2021 , Expires: 10/03/2021 Start: 10-02-2021 End: 10-03-2021 CLINICAL TRIAL DRAW CLINICAL TRIAL DRAW Lab STAT Malignant neoplasm of right kidney, except renal pelvis (HCC) Expected: 10/02/2021, Expires: 10/03/2021 [facility] Work Phone: Comment on above: Expected: 10/02/2021 , Expires: 10/03/2021 Start: 10-02-2021 End: 10-03-2021 Comprehensive metabolic 2000 panel - Serum or Plasma COMP METABOLIC PANEL Lab STAT Malignant neoplasm of right kidney, except renal pelvis (HCC) Expected: 10/02/2021, Expires: 10/03/2021 [facility] Work Phone: Comment on above: Expected: 10/02/2021 , Expires: 10/03/2021 Start: 10-02-2021 End: 10-03-2021 Lactate dehydrogenase [Enzymatic activity/volume] in Serum or Plasma LD LACTATE DEHYDRO Lab STAT Malignant neoplasm of right kidney, except renal pelvis (HCC) Expected: 10/02/2021, Expires: 10/03/2021 [facility] Work Phone: Comment on above: Expected: 10/02/2021 , Expires: 10/03/2021 Start: 10-02-2021 End: 10-03-2021 Magnesium [Mass/volume] in Serum or Plasma MAGNESIUM BLD Lab STAT Malignant neoplasm of right kidney, except renal pelvis (HCC) Expected: 10/02/2021, Expires: 10/03/2021 [facility] Work Phone: Comment on above: Expected: 10/02/2021 , Expires: 10/03/2021 Start: 10-02-2021 End: 10-03-2021 Phosphate [Mass/volume] in Serum or Plasma PHOSPHORUS INORGANIC Lab STAT Malignant neoplasm of right kidney, except renal pelvis (HCC) Expected: 10/02/2021, Expires: 10/03/2021 [facility] Work Phone: Comment on above: Expected: 10/02/2021 , Expires: 10/03/2021 Start: 10-02-2021 End: 10-03-2021 PT panel - Platelet poor plasma by Coagulation assay PROTHROMBIN TIME/PT Lab STAT Malignant neoplasm of right kidney, except renal pelvis (HCC) Expected: 10/02/2021, Expires: 10/03/2021 [facility] Work Phone: Comment on above: Expected: 10/02/2021 , Expires: 10/03/2021 Start: 10-02-2021 End: 10-03-2021 Thyrotropin [Units/volume] in Serum or Plasma TSH BLD Lab STAT Malignant neoplasm of right kidney, except renal pelvis (HCC) Expected: 10/02/2021, Expires: 10/03/2021 [facility] Work Phone: Comment on above: Expected: 10/02/2021 , Expires: 10/03/2021 Start: 10-02-2021 End: 10-03-2021 Thyroxine (T4) free [Mass/volume] in Serum or Plasma T4 FREE/FREE THYROX Lab STAT Malignant neoplasm of right kidney, except renal pelvis (HCC) Expected: 10/02/2021, Expires: 10/03/2021 [facility] Work Phone: Comment on above: Expected: 10/02/2021 , Expires: 10/03/2021 Start: 10-02-2021 End: 10-03-2021 Triiodothyronine (T3) Free [Mass/volume] in Serum or Plasma T3 FREE BLD Lab STAT Malignant neoplasm of right kidney, except renal pelvis (HCC) Expected: 10/02/2021, Expires: 10/03/2021 [facility] Work Phone: Comment on above: Expected: 10/02/2021 , Expires: 10/03/2021 Start: 10-02-2021 End: 10-03-2021 Urate [Mass/volume] in Serum or Plasma URIC ACID BLOOD Lab STAT Malignant neoplasm of right kidney, except renal pelvis (HCC) Expected: 10/02/2021, Expires: 10/03/2021 [facility] Work Phone: Comment on above: Expected: 10/02/2021 , Expires: 10/03/2021 Start: 08-19-2021 End: 08-20-2021 aPTT in Platelet poor plasma by Coagulation assay ACTIVATED PTT Lab STAT Malignant neoplasm of right kidney, except renal pelvis (HCC) Expected: 08/19/2021, Expires: 08/20/2021 [facility] Work Phone: Comment on above: Expected: 08/19/2021 , Expires: 08/20/2021 Start: 08-19-2021 End: 08-20-2021 CBC W Auto Differential panel - Blood CBC + DIFF Lab STAT Malignant neoplasm of right kidney, except renal pelvis (HCC) Expected: 08/19/2021, Expires: 08/20/2021 [facility] Work Phone: Comment on above: Expected: 08/19/2021 , Expires: 08/20/2021 Start: 08-19-2021 End: 08-20-2021 Comprehensive metabolic 2000 panel - Serum or Plasma COMP METABOLIC PANEL Lab STAT Malignant neoplasm of right kidney, except renal pelvis (HCC) Expected: 08/19/2021, Expires: 08/20/2021 [facility] Work Phone: Comment on above: Expected: 08/19/2021 , Expires: 08/20/2021 Start: 08-19-2021 End: 08-20-2021 Lactate dehydrogenase [Enzymatic activity/volume] in Serum or Plasma LD LACTATE DEHYDRO Lab STAT Malignant neoplasm of right kidney, except renal pelvis (HCC) Expected: 08/19/2021, Expires: 08/20/2021 [facility] Work Phone: Comment on above: Expected: 08/19/2021 , Expires: 08/20/2021 Start: 08-19-2021 End: 08-20-2021 Magnesium [Mass/volume] in Serum or Plasma MAGNESIUM BLD Lab STAT Malignant neoplasm of right kidney, except renal pelvis (HCC) Expected: 08/19/2021, Expires: 08/20/2021 [facility] Work Phone: Comment on above: Expected: 08/19/2021 , Expires: 08/20/2021 Start: 08-19-2021 End: 08-20-2021 Phosphate [Mass/volume] in Serum or Plasma PHOSPHORUS INORGANIC Lab STAT Malignant neoplasm of right kidney, except renal pelvis (HCC) Expected: 08/19/2021, Expires: 08/20/2021 [facility] Work Phone: Comment on above: Expected: 08/19/2021 , Expires: 08/20/2021 Start: 08-19-2021 End: 08-20-2021 PT panel - Platelet poor plasma by Coagulation assay PROTHROMBIN TIME/PT Lab STAT Malignant neoplasm of right kidney, except renal pelvis (HCC) Expected: 08/19/2021, Expires: 08/20/2021 [facility] Work Phone: Comment on above: Expected: 08/19/2021 , Expires: 08/20/2021 Start: 08-19-2021 End: 08-20-2021 Urate [Mass/volume] in Serum or Plasma URIC ACID BLOOD Lab STAT Malignant neoplasm of right kidney, except renal pelvis (HCC) Expected: 08/19/2021, Expires: 08/20/2021 [facility] Work Phone: Comment on above: Expected: 08/19/2021 , Expires: 08/20/2021 Start: 08-07-2021 End: 08-08-2021 aPTT in Platelet poor plasma by Coagulation assay ACTIVATED PTT Lab STAT Malignant neoplasm of right kidney, except renal pelvis (HCC) Expected: 08/07/2021, Expires: 08/08/2021 [facility] Work Phone: Comment on above: Expected: 08/07/2021 , Expires: 08/08/2021 Start: 08-07-2021 End: 08-08-2021 CBC W Auto Differential panel - Blood CBC + DIFF Lab STAT Malignant neoplasm of right kidney, except renal pelvis (HCC) Expected: 08/07/2021, Expires: 08/08/2021 [facility] Work Phone: Comment on above: Expected: 08/07/2021 , Expires: 08/08/2021 Start: 08-07-2021 End: 08-08-2021 CLINICAL TRIAL DRAW CLINICAL TRIAL DRAW Lab STAT Malignant neoplasm of right kidney, except renal pelvis (HCC) Expected: 08/07/2021, Expires: 08/08/2021 [facility] Work Phone: Comment on above: Expected: 08/07/2021 , Expires: 08/08/2021 Start: 08-07-2021 End: 08-08-2021 Comprehensive metabolic 2000 panel - Serum or Plasma COMP METABOLIC PANEL Lab STAT Malignant neoplasm of right kidney, except renal pelvis (HCC) Expected: 08/07/2021, Expires: 08/08/2021 [facility] Work Phone: Comment on above: Expected: 08/07/2021 , Expires: 08/08/2021 Start: 08-07-2021 End: 08-08-2021 Lactate dehydrogenase [Enzymatic activity/volume] in Serum or Plasma LD LACTATE DEHYDRO Lab STAT Malignant neoplasm of right kidney, except renal pelvis (HCC) Expected: 08/07/2021, Expires: 08/08/2021 [facility] Work Phone: Comment on above: Expected: 08/07/2021 , Expires: 08/08/2021 Start: 08-07-2021 End: 08-08-2021 Magnesium [Mass/volume] in Serum or Plasma MAGNESIUM BLD Lab STAT Malignant neoplasm of right kidney, except renal pelvis (HCC) Expected: 08/07/2021, Expires: 08/08/2021 [facility] Work Phone: Comment on above: Expected: 08/07/2021 , Expires: 08/08/2021 Start: 08-07-2021 End: 08-08-2021 Phosphate [Mass/volume] in Serum or Plasma PHOSPHORUS INORGANIC Lab STAT Malignant neoplasm of right kidney, except renal pelvis (HCC) Expected: 08/07/2021, Expires: 08/08/2021 [facility] Work Phone: Comment on above: Expected: 08/07/2021 , Expires: 08/08/2021 Start: 08-07-2021 End: 08-08-2021 PT panel - Platelet poor plasma by Coagulation assay PROTHROMBIN TIME/PT Lab STAT Malignant neoplasm of right kidney, except renal pelvis (HCC) Expected: 08/07/2021, Expires: 08/08/2021 [facility] Work Phone: Comment on above: Expected: 08/07/2021 , Expires: 08/08/2021 Start: 08-07-2021 End: 08-08-2021 Urate [Mass/volume] in Serum or Plasma URIC ACID BLOOD Lab STAT Malignant neoplasm of right kidney, except renal pelvis (HCC) Expected: 08/07/2021, Expires: 08/08/2021 [facility] Work Phone: Comment on above: Expected: 08/07/2021 , Expires: 08/08/2021 Start: 08-05-2021 End: 08-06-2021 aPTT in Platelet poor plasma by Coagulation assay ACTIVATED PTT Lab STAT Malignant neoplasm of right kidney, except renal pelvis (HCC) Expected: 08/05/2021, Expires: 08/06/2021 [facility] Work Phone: Comment on above: Expected: 08/05/2021 , Expires: 08/06/2021 Start: 08-05-2021 End: 08-06-2021 CBC W Auto Differential panel - Blood CBC + DIFF Lab STAT Malignant neoplasm of right kidney, except renal pelvis (HCC) Expected: 08/05/2021, Expires: 08/06/2021 [facility] Work Phone: Comment on above: Expected: 08/05/2021 , Expires: 08/06/2021 Start: 08-05-2021 End: 08-06-2021 Comprehensive metabolic 2000 panel - Serum or Plasma COMP METABOLIC PANEL Lab STAT Malignant neoplasm of right kidney, except renal pelvis (HCC) Expected: 08/05/2021, Expires: 08/06/2021 [facility] Work Phone: Comment on above: Expected: 08/05/2021 , Expires: 08/06/2021 Start: 08-05-2021 End: 08-06-2021 Lactate dehydrogenase [Enzymatic activity/volume] in Serum or Plasma LD LACTATE DEHYDRO Lab STAT Malignant neoplasm of right kidney, except renal pelvis (HCC) Expected: 08/05/2021, Expires: 08/06/2021 [facility] Work Phone: Comment on above: Expected: 08/05/2021 , Expires: 08/06/2021 Start: 08-05-2021 End: 08-06-2021 Magnesium [Mass/volume] in Serum or Plasma MAGNESIUM BLD Lab STAT Malignant neoplasm of right kidney, except renal pelvis (HCC) Expected: 08/05/2021, Expires: 08/06/2021 [facility] Work Phone: Comment on above: Expected: 08/05/2021 , Expires: 08/06/2021 Start: 08-05-2021 End: 08-06-2021 Phosphate [Mass/volume] in Serum or Plasma PHOSPHORUS INORGANIC Lab STAT Malignant neoplasm of right kidney, except renal pelvis (HCC) Expected: 08/05/2021, Expires: 08/06/2021 [facility] Work Phone: Comment on above: Expected: 08/05/2021 , Expires: 08/06/2021 Start: 08-05-2021 End: 08-06-2021 PT panel - Platelet poor plasma by Coagulation assay PROTHROMBIN TIME/PT Lab STAT Malignant neoplasm of right kidney, except renal pelvis (HCC) Expected: 08/05/2021, Expires: 08/06/2021 [facility] Work Phone: Comment on above: Expected: 08/05/2021 , Expires: 08/06/2021 Start: 08-05-2021 End: 08-06-2021 T3 FREE BLD T3 FREE BLD Lab STAT Malignant neoplasm of right kidney, except renal pelvis (HCC) Expected: 08/05/2021, Expires: 08/06/2021 [facility] Work Phone: Comment on above: Expected: 08/05/2021 , Expires: 08/06/2021 Start: 08-05-2021 End: 08-06-2021 T4 FREE/FREE THYROX T4 FREE/FREE THYROX Lab STAT Malignant neoplasm of right kidney, except renal pelvis (HCC) Expected: 08/05/2021, Expires: 08/06/2021 [facility] Work Phone: Comment on above: Expected: 08/05/2021 , Expires: 08/06/2021 Start: 08-05-2021 End: 08-06-2021 Thyrotropin [Units/volume] in Serum or Plasma TSH BLD Lab STAT Malignant neoplasm of right kidney, except renal pelvis (HCC) Expected: 08/05/2021, Expires: 08/06/2021 [facility] Work Phone: Comment on above: Expected: 08/05/2021 , Expires: 08/06/2021 Start: 08-05-2021 End: 08-06-2021 Urate [Mass/volume] in Serum or Plasma URIC ACID BLOOD Lab STAT Malignant neoplasm of right kidney, except renal pelvis (HCC) Expected: 08/05/2021, Expires: 08/06/2021 [facility] Work Phone: Comment on above: Expected: 08/05/2021 , Expires: 08/06/2021 Start: 07-31-2021 End: 09-30-2021 CBC W Auto Differential panel - Blood CBC + DIFF Lab Routine Renal cell carcinoma, unspecified laterality (HCC) Expected: 07/31/2021, Expires: 09/30/2021 [facility] Work Phone: Comment on above: Expected: 07/31/2021 , Expires: 09/30/2021 Start: 07-31-2021 End: 09-30-2021 Comprehensive metabolic 2000 panel - Serum or Plasma COMP METABOLIC PANEL Lab Routine Renal cell carcinoma, unspecified laterality (HCC) Expected: 07/31/2021, Expires: 09/30/2021 [facility] Work Phone: Comment on above: Expected: 07/31/2021 , Expires: 09/30/2021 Start: 07-24-2021 End: 07-25-2021 aPTT in Platelet poor plasma by Coagulation assay ACTIVATED PTT Lab STAT Malignant neoplasm of right kidney, except renal pelvis (HCC) Expected: 07/24/2021, Expires: 07/25/2021 [facility] Work Phone: Comment on above: Expected: 07/24/2021 , Expires: 07/25/2021 Start: 07-24-2021 End: 07-25-2021 CBC W Auto Differential panel - Blood CBC + DIFF Lab STAT Malignant neoplasm of right kidney, except renal pelvis (HCC) Expected: 07/24/2021, Expires: 07/25/2021 [facility] Work Phone: Comment on above: Expected: 07/24/2021 , Expires: 07/25/2021 Start: 07-24-2021 End: 07-25-2021 CLINICAL TRIAL DRAW CLINICAL TRIAL DRAW Lab STAT Malignant neoplasm of right kidney, except renal pelvis (HCC) Expected: 07/24/2021, Expires: 07/25/2021 [facility] Work Phone: Comment on above: Expected: 07/24/2021 , Expires: 07/25/2021 Start: 07-24-2021 End: 07-25-2021 Comprehensive metabolic 2000 panel - Serum or Plasma COMP METABOLIC PANEL Lab STAT Malignant neoplasm of right kidney, except renal pelvis (HCC) Expected: 07/24/2021, Expires: 07/25/2021 [facility] Work Phone: Comment on above: Expected: 07/24/2021 , Expires: 07/25/2021 Start: 07-24-2021 End: 07-25-2021 Lactate dehydrogenase [Enzymatic activity/volume] in Serum or Plasma LD LACTATE DEHYDRO Lab STAT Malignant neoplasm of right kidney, except renal pelvis (HCC) Expected: 07/24/2021, Expires: 07/25/2021 [facility] Work Phone: Comment on above: Expected: 07/24/2021 , Expires: 07/25/2021 Start: 07-24-2021 End: 07-25-2021 Magnesium [Mass/volume] in Serum or Plasma MAGNESIUM BLD Lab STAT Malignant neoplasm of right kidney, except renal pelvis (HCC) Expected: 07/24/2021, Expires: 07/25/2021 [facility] Work Phone: Comment on above: Expected: 07/24/2021 , Expires: 07/25/2021 Start: 07-24-2021 End: 07-25-2021 Phosphate [Mass/volume] in Serum or Plasma PHOSPHORUS INORGANIC Lab STAT Malignant neoplasm of right kidney, except renal pelvis (HCC) Expected: 07/24/2021, Expires: 07/25/2021 [facility] Work Phone: Comment on above: Expected: 07/24/2021 , Expires: 07/25/2021 Start: 07-24-2021 End: 07-25-2021 PT panel - Platelet poor plasma by Coagulation assay PROTHROMBIN TIME/PT Lab STAT Malignant neoplasm of right kidney, except renal pelvis (HCC) Expected: 07/24/2021, Expires: 07/25/2021 [facility] Work Phone: Comment on above: Expected: 07/24/2021 , Expires: 07/25/2021 Start: 07-24-2021 End: 07-25-2021 Urate [Mass/volume] in Serum or Plasma URIC ACID BLOOD Lab STAT Malignant neoplasm of right kidney, except renal pelvis (HCC) Expected: 07/24/2021, Expires: 07/25/2021 [facility] Work Phone: Comment on above: Expected: 07/24/2021 , Expires: 07/25/2021 Start: 07-15-2021 End: 07-16-2021 aPTT in Platelet poor plasma by Coagulation assay ACTIVATED PTT Lab STAT Malignant neoplasm of right kidney, except renal pelvis (HCC) Expected: 07/15/2021, Expires: 07/16/2021 [facility] Work Phone: Comment on above: Expected: 07/15/2021 , Expires: 07/16/2021 Start: 07-15-2021 End: 07-16-2021 CBC W Auto Differential panel - Blood CBC + DIFF Lab STAT Malignant neoplasm of right kidney, except renal pelvis (HCC) Expected: 07/15/2021, Expires: 07/16/2021 [facility] Work Phone: Comment on above: Expected: 07/15/2021 , Expires: 07/16/2021 Start: 07-15-2021 End: 07-16-2021 Comprehensive metabolic 2000 panel - Serum or Plasma COMP METABOLIC PANEL Lab STAT Malignant neoplasm of right kidney, except renal pelvis (HCC) Expected: 07/15/2021, Expires: 07/16/2021 [facility] Work Phone: Comment on above: Expected: 07/15/2021 , Expires: 07/16/2021 Start: 07-15-2021 End: 07-16-2021 Lactate dehydrogenase [Enzymatic activity/volume] in Serum or Plasma LD LACTATE DEHYDRO Lab STAT Malignant neoplasm of right kidney, except renal pelvis (HCC) Expected: 07/15/2021, Expires: 07/16/2021 [facility] Work Phone: Comment on above: Expected: 07/15/2021 , Expires: 07/16/2021 Start: 07-15-2021 End: 07-16-2021 Magnesium [Mass/volume] in Serum or Plasma MAGNESIUM BLD Lab STAT Malignant neoplasm of right kidney, except renal pelvis (HCC) Expected: 07/15/2021, Expires: 07/16/2021 [facility] Work Phone: Comment on above: Expected: 07/15/2021 , Expires: 07/16/2021 Start: 07-15-2021 End: 07-16-2021 Phosphate [Mass/volume] in Serum or Plasma PHOSPHORUS INORGANIC Lab STAT Malignant neoplasm of right kidney, except renal pelvis (HCC) Expected: 07/15/2021, Expires: 07/16/2021 [facility] Work Phone: Comment on above: Expected: 07/15/2021 , Expires: 07/16/2021 Start: 07-15-2021 End: 07-16-2021 PT panel - Platelet poor plasma by Coagulation assay PROTHROMBIN TIME/PT Lab STAT Malignant neoplasm of right kidney, except renal pelvis (HCC) Expected: 07/15/2021, Expires: 07/16/2021 [facility] Work Phone: Comment on above: Expected: 07/15/2021 , Expires: 07/16/2021 Start: 07-15-2021 End: 07-16-2021 T3 FREE BLD T3 FREE BLD Lab STAT Malignant neoplasm of right kidney, except renal pelvis (HCC) Expected: 07/15/2021, Expires: 07/16/2021 [facility] Work Phone: Comment on above: Expected: 07/15/2021 , Expires: 07/16/2021 Start: 07-15-2021 End: 07-16-2021 T4 FREE/FREE THYROX T4 FREE/FREE THYROX Lab STAT Malignant neoplasm of right kidney, except renal pelvis (HCC) Expected: 07/15/2021, Expires: 07/16/2021 [facility] Work Phone: Comment on above: Expected: 07/15/2021 , Expires: 07/16/2021 Start: 07-15-2021 End: 07-16-2021 Thyrotropin [Units/volume] in Serum or Plasma TSH BLD Lab STAT Malignant neoplasm of right kidney, except renal pelvis (HCC) Expected: 07/15/2021, Expires: 07/16/2021 [facility] Work Phone: Comment on above: Expected: 07/15/2021 , Expires: 07/16/2021 Start: 07-15-2021 End: 07-16-2021 Urate [Mass/volume] in Serum or Plasma URIC ACID BLOOD Lab STAT Malignant neoplasm of right kidney, except renal pelvis (HCC) Expected: 07/15/2021, Expires: 07/16/2021 [facility] Work Phone: Comment on above: Expected: 07/15/2021 , Expires: 07/16/2021 Start: 06-24-2021 End: 08-24-2021 PT panel - Platelet poor plasma by Coagulation assay PROTHROMBIN TIME/PT Lab STAT Mass of right chest wall Expected: 06/24/2021, Expires: 08/24/2021 [facility] Work Phone: Comment on above: Expected: 06/24/2021 , Expires: 08/24/2021 Start: 06-23-2021 End: 07-23-2022 Bone &/joint imaging whole body NM BONE WHOLE BODY Radiology Routine Malignant neoplasm of kidney, unspecified laterality (HCC) Malignant neoplasm of kidney excluding renal pelvis, unspecified laterality (HCC) Expected: 06/23/2021 (Approximate), Expires: 07/23/2022 [facility] Work Phone: Comment on above: Expected: 06/23/2021 (Approximate), Expires: 07/23/2022 Start: 06-23-2021 End: 07-23-2022 Ct abdomen & pelvis w/contrast material CT ABD/PEL W IVCON Radiology Routine Malignant neoplasm of kidney, unspecified laterality (HCC) Malignant neoplasm of kidney excluding renal pelvis, unspecified laterality (HCC) Expected: 06/23/2021 (Approximate), Expires: 07/23/2022 [facility] Work Phone: Comment on above: Expected: 06/23/2021 (Approximate), Expires: 07/23/2022 Start: 06-23-2021 End: 07-23-2022 Ct abdomen & pelvis w/o contrast material CT ABD/PEL WO IVCON Radiology Routine Malignant neoplasm of kidney, unspecified laterality (HCC) Malignant neoplasm of kidney excluding renal pelvis, unspecified laterality (HCC) Expected: 06/23/2021, Expires: 07/23/2022 [facility] Work Phone: Comment on above: Expected: 06/23/2021 , Expires: 07/23/2022 Start: 05-21-2021 COVID-19 VACCINE (4 - Booster for Pfizer series) COVID-19 VACCINE (4 - Booster for Pfizer series) [facility] Start: 04-23-2021 COVID-19 VACCINE (4 - Booster for Pfizer series) COVID-19 VACCINE (4 - Booster for Pfizer series) [facility] Start: 04-15-2021 COVID-19 VACCINE (4 - Booster for Pfizer series) COVID-19 VACCINE (4 - Booster for Pfizer series) [facility] Start: 03-18-2021 COVID-19 VACCINE (4 - Booster for Pfizer series) COVID-19 VACCINE (4 - Booster for Pfizer series) [facility] Start: 03-08-2021 DEPRESSION ASSESSMENT DEPRESSION ASS ESSMENT [facility] Start: 11-19-2020 Colonoscopy COLONOSCOPY [facility] Start: 11-19-2020 COLORECTAL CANCER SCREENING COLORECTAL CANCER SCREENING [facility] Start: 11-19-2020 Screening for malign ant neoplasm of colon [facility] Start: 11-05-2020 Hepatitis B surface antibody level LDL CHOLESTEROL [facility] Start: 07-28-2019 FECAL OCCULT BLOOD FECAL OCCULT BLOO D [facility] Start: 07-28-2019 Screening for malign ant neoplasm of colon Fecal Occult Blood [facility] Start: 03-16-2017 Adult depression scr eening assessment DEPRESSION SCREENING [facility] Start: 01-01-2014 Measurement of occul t blood in single stool specimen FIT [facility] Start: 01-01-2014 Screening for malign ant neoplasm of colon CRC Screening [facility] Start: 01-01-2014 Shingles (RZV) Vacci ne (1 of 2) Shingles (RZV) Vaccine (1 of 2) [facility] Start: 01-01-2014 SHINGRIX VACCINE (1 of 2) ROSS GRIX VACCINE (1 of 2) [facility] Start: 01-01-2009 COLOGUARD (FIT-DNA) COLOGUARD (FIT-D NA) [facility] Start: 01-01-[address] COLONOGRAPHY [facility] Start: 01-01-2009 Screening for malign ant neoplasm of colon [facility] Start: 01-01-2009 SIGMOIDOSCOPY SIGMOIDOSCOPY [facility] Start: 01-01-1999 Lipid panel Cholesterol [facility] Start: 01-01-1983 ONE PNEUMOVAX PRIOR TO AGE 65 ONE PNEUMOVAX PRIOR TO AGE 64 [facility] Start: 01-01-1983 SHINGRIX VACCINE (1 of 2) ROSS GRIX VACCINE (1 of 2) [facility] Start: 01-01-1982 Anxiety Screening Anxiety Screening [facility] Start: 01-01-1982 BP CONTROLLED (<130/80) BP CON TROLLED (<130/80) [facility] Start: 01-01-1982 Depression Screening Depression Scre ening [facility] Start: 01-01-1982 Hepatitis C screening Hepatitis C An tibody [facility] Start: 01-01-1982 Tetanus + diphtheria + acellular pertussis vaccine (product) Tdap Booster [facility] Start: 01-01-1979 HIV screening HIV Test [facility] Start: 01-01-1970 PNEUMOCOCCAL (1 - PCV) PNEUMOCOCCAL (1 - PCV) [facility] Start: 1965 COVID-19 Vaccine (#1) COVID-19 Vacci ne (#1) [facility] Start: 1965 HEPATITIS B (1 of 3 - 3-dose series) HEPATITIS B (1 of 3 - 3-dose series) [facility] Start: 1965 Screening for malign ant neoplasm of colon Colonoscopy [facility] Basic metabolic 2008 panel with ionized calcium - Serum or Plasma [facility] Basic metabolic 2008 panel with ionized calcium - Serum or Plasma [facility] Biopsy bone trocar/n eedle superficial IMAGING GUIDED BIOPSY RIB/BONY PELVIS/STERNUM/SPINOUS PROCESS Radiology Routine Malignant neoplasm of kidney, unspecified laterality (HCC) Malignant neoplasm of kidney excluding renal pelvis, unspecified laterality (HCC) Ordered: 06/23/2021 [facility] Work Phone: Comment on above: Ordered: 06/23/2021 Bone &/joint imaging whole body NM BONE WHOLE BODY Radiology Routine Renal cell carcinoma of right kidney (HCC) Ordered: 03/11/2022 [facility] Work Phone: Comment on above: Ordered: 03/11/2022 CBC W Auto Different ial panel - Blood [facility] CBC W Auto Different ial panel - Blood [facility] CBC W Auto Different ial panel - [facility] CLINICAL TRIAL DRAW CLINICAL TRI AL DRAW Lab STAT Malignant neoplasm of right kidney, except renal pelvis (HCC) 08/08/2021 9:04 AM EDT [facility] Work Phone: End: 08-27-2022 Ct abdomen & pelvis w/contrast material CT ABD/PEL W IVCON Radiology Routine Malignant neoplasm of right kidney, except renal pelvis (HCC) Malignant neoplasm of kidney excluding renal pelvis, unspecified laterality (HCC) 1 Occurrences starting 07/28/2021 until 08/27/2022 [facility] Work Phone: Comment on above: 1 Occurrences starti ng 07/28/2021 until 08/27/2022 End: 09-19-2022 Ct abdomen & pelvis w/contrast material CT ABD/PEL W IVCON Radiology Routine Malignant neoplasm of right kidney, except renal pelvis (HCC) Malignant neoplasm of kidney excluding renal pelvis, unspecified laterality (HCC) 1 Occurrences starting 08/21/2021 until 09/19/2022 [facility] Work Phone: Comment on above: 1 Occurrences starti ng 08/21/2021 until 09/19/2022 Ct abdomen & pelvis w/contrast material CT ABD/PEL W IVCON Radiology Routine Renal cell carcinoma of right kidney (HCC) Ordered: 03/11/2022 [facility] Work Phone: Comment on above: Ordered: 03/11/2022 CT Abdomen and Pelvi s WO contrast [facility] CT CHEST W IVCON CT CHEST W IVCO N Radiology Routine Renal cell carcinoma of right kidney (HCC) Ordered: 03/11/2022 [facility] Work Phone: Comment on above: Ordered: 03/11/2022 CT Chest WO contrast [facility] End: 09-19-2022 Ct thorax w/contrast material CT CHEST W IVCON Radiology Routine Malignant neoplasm of right kidney, except renal pelvis (HCC) Malignant neoplasm of kidney excluding renal pelvis, unspecified laterality (HCC) 1 Occurrences starting 08/21/2021 until 09/19/2022 [facility] Work Phone: Comment on above: 1 Occurrences starti ng 08/21/2021 until 09/19/2022 End: 07-11-2022 ECG COMPLETE ECG COMPLETE ECG Routine Malignant neoplasm of right kidney, except renal pelvis (HCC) 1 Occurrences starting 07/11/2021 until 07/11/2022 [facility] Work Phone: Comment on above: 1 Occurrences starti ng 07/11/2021 until 07/11/2022 ECG COMPLETE [facility] End: 12-30-2022 ECG COMPLETE ECG COMPLETE ECG Routine Renal cell carcinoma of right kidney (HCC) 1 Occurrences starting 12/30/2021 until 12/30/2022 [facility] Work Phone: Comment on above: 1 Occurrences starti ng 12/30/2021 until 12/30/2022 End: 02-16-2023 ECHO LIMITED ECHO LIMITED Cardiology Routine Acute decompensated heart failure (HCC) Paroxysmal atrial fibrillation (HCC) 1 Occurrences starting 02/16/2022 until 02/16/2023 [facility] Work Phone: Comment on above: 1 Occurrences starti ng 02/16/2022 until 02/16/2023 End: 07-11-2022 Echocardiography ECHO Cardiology Routine Malignant neoplasm of right kidney, except renal pelvis (HCC) 1 Occurrences starting 07/11/2021 until 07/11/2022 [facility] Work Phone: Comment on above: 1 Occurrences starti ng 07/11/2021 until 07/11/2022 Elastase.pancreatic [Presence] in Stool [facility] INR in Blood by Coagulation assay [facility] INR in Blood by Coagulation assay [facility] INR in Blood by Coagulation assay [facility] Lactate dehydrogenas e measurement [facility] Magnesium [Mass/volu me] in Serum or Plasma [facility] Magnesium measurement [facility] End: 09-07-2022 Mri abdomen w/o & w/contrast material MRI KIDNEY WO/W IVCON Radiology Routine Other specified disorders of kidney and ureter 1 Occurrences starting 08/08/2021 until 09/07/2022 [facility] Work Phone: Comment on above: 1 Occurrences starti ng 08/08/2021 until 09/07/2022 End: 08-13-2022 Mri brain brain stem w/o w/contrast material MRI BRAIN WO/W IVCON Radiology Routine Malignant neoplasm of kidney excluding renal pelvis, unspecified laterality (HCC) Renal cell carcinoma, unspecified laterality (HCC) 1 Occurrences starting 07/14/2021 until 08/13/2022 [facility] Work Phone: Comment on above: 1 Occurrences starti ng 07/14/2021 until 08/13/2022 NM Heart Views W str ess and W radionuclide IV [facility] End: 07-22-2022 OUTSIDE LISA OUTSIDE LISA Cardiology Routine Nonrheumatic mitral valve regurgitation 1 Occurrences starting 07/22/2021 until 07/22/2022 [facility] Work Phone: Comment on above: 1 Occurrences starti ng 07/22/2021 until 07/22/2022 Ova and parasites identified in Unspecified specimen by Light microscopy [facility] Patient Education [facility] Work Phone: Patient referral [facility] Work Phone: End: 08-19-2022 Polysomnogram POLYSOMNOGRAM (PSG) Procedures Routine Disturbance in sleep behavior 1 Occurrences starting 08/19/2021 until 08/19/2022 [facility] Work Phone: Comment on above: 1 Occurrences starti ng 08/19/2021 until 08/19/2022 End: 01-29-2023 Radiologic exam chest 2 views XR CHEST 2V FRONTAL/LAT Radiology Routine Renal cell carcinoma of right kidney (HCC) 1 Occurrences starting 12/30/2021 until 01/29/2023 [facility] Work Phone: Comment on above: 1 Occurrences starti ng 12/30/2021 until 01/29/2023 Respiratory Panel (PCR) Respirat ory Panel (PCR) [facility] Respiratory pathogen s DNA and RNA 12b panel - Unspecified specimen by SANDOVAL with probe detection [facility] T3 FREE BLD T3 FREE BLD Lab STAT Malignant neoplasm of right kidney, except renal pelvis (HCC) 07/21/2021 7:53 AM EDT [facility] Work Phone: T4 FREE/FREE THYROX T4 FREE/FREE THYROX Lab STAT Malignant neoplasm of right kidney, except renal pelvis (HCC) 07/21/2021 7:53 AM EDT [facility] Work Phone: Thyroid stimulating hormone measurement [facility] Troponin I measurement [facility] Work Phone: Troponin I measurement [facility] URINALYSIS, REFLEX MICROSCOPIC URINALYSIS, REFLEX MICROSCOPIC Lab Routine Screening for genitourinary condition Ordered: 01/23/2022 [facility] Work Phone: Comment on above: Ordered: 01/23/2022 [facility] Work Phone: [facility] Immunizations Immunization Date Immunization Notes Care Provider Fa [facility] 01-21-2021 Pfizer-BioNTech COVID-19 Vacc 30 MCG/0.3ML Intramuscular Suspension Daksha Turner Work Phone: [facility] 06-20-2020 Covid (Pfizer) Dr. Janusz Turner Work Phone: [facility] 06-15-2020 Pfizer-BioNTech COVID-19 Vacc 30 MCG/0.3ML Intramuscular Suspension Daksha Turner Work Phone: [facility] 05-25-2020 Pfizer-BioNTech COVID-19 Vacc 30 MCG/0.3ML Intramuscular Suspension Daksha Turner Work Phone: [facility] 07-25-2018 tetanus toxoid, reduced diphtheria toxoid, and acellular pertussis vaccine, adsorbed Dawit Urbina MD Work Phone: [facility] 12-06-2013 influenza, seasonal, injectable Dawit Urbina MD Work Phone: [facility] 12-06-2013 influenza virus vaccine, unspecified formulation Noreen Morejon [facility] Date of Pneumonia Vaccine: Family [facility] Work Phone: Payers Date Payer Category Payer Medicare [id number] 2023 Self-pay [id number] 2023 Medicare [id number] 2023 Self-pay [id number] 2020 Unknown [employer] [id number] 2020-Present [phone] [place] [address] [id number] [id number]. [id number] 2018 Unknown [id number] 1.2.840.708046.1.13.159.2. [id number] 2016 Unknown [id number] 2015 Unknown [employer] [id number] 2015-Present [phone] [place] [address] [id number] 1.2.840.826261.1.13.159.2. 7.3.485181.315 2008 Unknown [employer] [id number] 2008-Present [phone] [place] [address] [id number] 1.2.840.632431.1.13.159.2. 7.3.723217.315 2008 Worker's Compensation [employer] - SEL[employer] INS[employer]ED [employer] [id number] 2008-Present [phone] [place] [address] Worker's Comp 1.2.840.108814.1.13.56.2.7 .3.780094.315 2006 Unknown [id number] 1964 Unknown [id number] 2.16.840.1.204283.3.579.2. 1069 1964 Unknown [id number] 2.16.840.1.760058.3.579.2. 1069 1964 Unknown [id number] 2.16.840.1.875064.3.579.2. 356 1964 Unknown [id number] 2.16.840.1.810089.3.579.2. 356 Unknown [id number] 2.16.840.1.759944.3.579.2. 277 Unknown [id number] 2.16.840.1.324317.3.579.2. 462 Unknown [id number] 2.16.840.1.846540.3.579.2. 462 Unknown [id number] 2.840.1.555158.3.579.2. 462 Unknown [id number] 2.16.840.1.754263.3.579.2. 462 Unknown [id number] 2.16.840.1.011257.3.579.2. 462 Unknown [id number] 2.16.840.1.543706.3.579.2. 462 Unknown [id number] 2.16.840.1.188039.3.579.2. 462 Unknown [id number] 2.16.840.1.747337.3.579.2. 462 Unknown [id number] 2.16.840.1.838432.3.579.2. 462 Unknown [id number] 2.16.840.1.581363.3.579.2. 462 Unknown [id number] 2.16.840.1.956902.3.579.2. 462 Unknown [id number] 2.16.840.1.703399.3.579.2. 462 Unknown [id number] 2.16.840.1.416741.3.579.2. 462 Unknown [id number] 2.16.840.1.713471.3.579.2. 462 Unknown [id number] 2.16.840.1.714331.3.579.2. 462 Unknown [id number] 2.16.840.1.666592.3.579.2. 462 Unknown [id number] 2.16.840.1.647831.3.579.2. 462 Unknown [id number] 2.16.840.1.372950.3.579.2. 462 Unknown [id number] 2.16.840.1.096265.3.579.2. 462 Unknown [id number] 2.16.840.1.263073.3.579.2. 462 Unknown [id number] 2.16.840.1.295535.3.579.2. 462 Unknown [id number] 2.16.840.1.021798.3.579.2. 462 Unknown [id number] 2.16.840.1.350793.3.579.2. 462 Unknown [id number] 2.16.840.1.347568.3.579.2. 462 Social History Date Type Detail Facility Start: 06-19-2021 End: 10-09-2021 Tobacco smoking status NHIS Never smoker [facility] Start: 1965 Sex Assigned At Male [facility] Start: 08-19-2021 End: 10-02-2024 Tobacco smoking status MDIS Smokes tobacco daily [facility] Work Phone: History of tobacco use Cigarette Smoker [facility] Work Phone: Start: 06-20-2021 End: 12-09-2021 Alcohol intake Current drinker of alcohol (finding) [facility] Start: 1965 Sex Assigned At Not on file [facility] Start: 06-10-2021 End: 01-19-2022 Exposure to SARS-CoV-2 (event) Not sure [facility] Start: 07-01-2021 End: 11-28-2021 Exposure to SARS-CoV-2 (event) Unable to assess [facility] Start: 06-04-2019 End: 12-15-2022 Tobacco smoking status NHIS Unknown if ever smoked [facility] Work Phone: Start: 06-04-2019 Spouse/ Signif icant Other [facility] Start: 06-04-2019 Secondhand [facility] Start: 08-19-2021 End: 12-09-2021 Tobacco Comment former cigarettes, now cigars 3 per day [facility] Start: 08-19-2021 End: 10-09-2021 Cigarettes smoked current (pack per day) - Reported 0.3 [facility] Start: 08-19-2021 End: 02-16-2022 Tobacco use and exposure Smokeless tobacco non-user [facility] Start: 10-27-2021 History SDOH Alcohol Comment 3 times a week per pt 10/27/2021 [facility] History of tobacco use Cigar Smoker [facility] Start: 02-16-2022 Tobacco smoking status NHIS Ex-smoker [facility] History of tobacco use Current smoker [facility] Start: 02-16-2022 End: 02-17-2022 Alcohol intake Ex-drinker (finding) [facility] Start: 02-16-2022 Tobacco Comment About a month ago smoked cigars About 3-4 years from last time smoked cigarettes [facility] Adult Depression Screening Assessment 1 [facility] Start: 06-06-2024 End: 06-22-2024 Sex Male (finding) [facility] NEGATED: Highlighted rowStart: NINF History of tobacco use Passive smoker [facility] Goals Date Patient Goal Desired Activity /State Functional Status Date Assessment Result Facility 12-17-2022 Functional status Ambulates [facility] Work Phone: 06-29-2022 Functional status Ambulates [facility] Work Phone: 05-20-2022 Functional status Activity Ability Indepe ndent [facility] Work Phone: 05-20-2022 Functional status Patient Activity Bedres t [facility] Work Phone: 04-16-2022 Functional status Activity Ability Indepe ndent [facility] Work Phone: 04-16-2022 Functional status Ambulates;Up ad haley [facility] Work Phone: 12-09-2021 Functional status Ambulates [facility] Work Phone: 12-08-2021 Functional status None [facility] Work Phone: Functional observable [facility] Mental Status Date Assessment Result Facility 12-17-2022 Cognitive function Voice/Name [facility] Work Phone: 06-29-2022 Cognitive function Voice/Name [facility] Work Phone: 06-27-2022 Cognitive function Voice/Name [facility] Work Phone: 05-20-2022 Cognitive function Voice/Name [facility] Work Phone: 04-16-2022 Cognitive function Voice/Name [facility] Work Phone: 02-06-2022 Cognitive functi ons [id number] [facility] 01-20-2022 Cognitive function Awake;Alert;A ppropriate;Foll ows Commands [facility] Work Phone: 12-09-2021 Cognitive function Voice/Name [facility] Work Phone: 12-07-2021 Cognitive function Voice/Name [facility] Work Phone: Clinical Notes 06-30-2004 to 06-20-2024 Note Date & Type Note Facility 06-20-2024 Evaluation note Diagnosis Onset Date Resolution 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 June 20 1:05pm Renal cell cancer chronic June 062024 1:05pm [facility] Work Phone: 1(261) 908-164004-15-2025 Evaluation note* Diagnosis Onset Date Resolution Status Admit Date Metastatic renal cell carcin paulette to bone chronic June 20, 2024 1:05pm Renal cell cancer chronic June 062024 1:05pm Atrial fibrillation inactive August 14, 2024 12:55pm Chest pain acute August 14, 2024 12:55pm Renal failure acute August 14, 2 025 12:55pm CHF (congestive heart failure) resol angy August 14, 2024 12:55pm Hypertension inactive August 14 12:55pm [facility] Work Phone: 1(634) 583-358404-15-2025 Evaluation note* Diagnosis Onset Date Resolution Status Admit Date Metastatic renal cell carcin paulette to bone chronic June 20, 2024 1:05pm Renal cell cancer chronic June 062024 1:05pm Chest pain acute August 14, 2024 12:55pm Renal failure acute August 14, 2 025 12:55pm Atrial fibrillation chronic August 14, 2024 12:55pm CHF (congestive heart failure) resol angy August 14, 2024 12:55pm Hypertension inactive August 14 12:55pm [facility] Work Phone: 1(278) 874-893604-15-2025 Evaluation note* Diagnosis Onset Date Resolution Status Admit Date Metastatic renal cell carcin paulette to bone chronic June 20, 2024 1:05pm Renal cell cancer chronic June 062024 1:05pm Chest pain acute August 14, 2024 12:55pm Renal failure acute August 14, 2 025 12:55pm Atrial fibrillation chronic August 14, 2024 12:55pm CHF (congestive heart failure) resol angy August 14, 2024 12:55pm Hypertension inactive August 14 12:55pm Chest pain acute October 02 2:24pm Renal failure acute October 02, 2024 2:24pm Atrial fibrillation chronic October 02, 2024 2:24pm CHF (congestive heart failure) resol angy October 02, 2024 2:24pm Hypertension inactive October 02, 2 025 2:24pm [facility] Work Phone: 1(300) 355-189004-09-2025 Radiology Diagnostic study note [facility] Imaging Services [address] [place] [address] CT Chest, Abd, Pel w/Contrast MR#: [id number] Acct: [id number] Name: YEFRI YANEZ Rep #: [id number] : 1965 M 59 From: Manuela Holman MD PCP: Dr. Daksha Turner MD Status: REG CLI Study:CT Chest, Abd, Pel w/Contrast Date of E xam: 06/13/24 Exam# [id number] Ordering Dr: Jose Botello MD PROCEDURE: CT [...] cm. *Status post right-sided nephrectomy. Reading Location: [facility] CC: Dr. Daksha Turner MD; Dr. Dangelo Botello MD ~ Route Delivery Manager: Signed [facility]10-11-2023 Progress note Author Carol Chiu [facility] December 16, 2022 12:38pm Note Date/Time December 16, 2022 1 2:38pm [facility] Medical Records Department [address] [place] [address] Progress Note - Hospitalist 12/16/22 1227 MR#: [id number] Acct: [id number] Name: YEFRI YANEZ Rep #:[id number] : 1965 57 From: Carol Chiu DO PCP: Dr. Jose Ramon Turner MD Status: ADM LISY Location: [place] [address] Reason for Visit Reason for Visit: Shortness of breath Subjective Subjective Mr. Yanez is a 57-year-old -[place] male who presented to the emergency department at [facility] on 12/15/2022 with worsening shortness of breath. Patient told the admitting physician that he is supposed to be wearing his oxygen all the time at home however he is only wearing it whenneeded. His oxygen was written for by Dr. Yanez and is to be 3 L [id number]. He does have a history of systolic [...] is supposed to be on 3 L dhieit-xok-pukhy of oxygen. He tells me that he [...] (Auto) 87.2 H, Lymph % (Auto) 7.4L, [place] % (Auto) 4.6, Eos % (Auto) 0.1, [...] 79.3 H, Lymph % (Auto) 12.9 L, [place] % (Auto) 6.0, Eos % (Auto) 0.9, [...] habitus or healthy appearing Constitutional Narrative: Obese, -Gu[place]ian, male, lying in bed, appears comfortable and [...] post nephrectomy 02/06/2022--> [facility] Aravind Lopez at [facility] -Currently on immunotherapy -Patient has undergone [...] in a.m. Charges/Coding Visit Charges Inpatient E&M: 32004 Subs Hosp L2 12/16/22 1238 <Electronically signed by Carol Chiu DO> Cosigner Signature (if applicable): CC: ~ Signed [facility] Work Phone: 1(456) 800-646010-10-2023 History and physical note Author Marquise Padilla [facility] December 15, 2022 7:30pm Note Date/Time December 15, 2022 4 :56pm [facility] Medical Records Department [address] [place] [address] H&P Exam - Hospitalist 12/15/22 1648 MR#: [id number] Acct: [id number] Name: YEFRI YANEZ Rep #:[id number] : 1965 57 From: Marquise ogden MD PCP: Dr. Jose Ramon Turner MD Status: ADM LISY Location: [place] [address] HPI - General General Date of Admission: [...] febrile. He has had similar issues in thepa, and he is currently on immunotherapy for his renal cancer. Also of note in the ED his BNP was elevated at 574, but earlier in November it was down to 220. [facility] Atrial fibrillation Atrial fibrillation CKD [...] 87.2 H, Lymph % (Auto) 7.4 L, [place] % (Auto) 4.6, Eos % (Auto) 0.1, [...] Jose Turner DO at 13:37 EDT , Assessment & Plan [...] DVT: Coumadin Charges/Coding Visit Charges Inpatient E&M: 26569 Init Hosp L3 12/15/221929 <Electronically signed by Marquise Padilla MD> Cosigner Signature (if applicable): CC: Dr. Jose Ramon Turner MD; Dr. Marquise Padilla MD~ Signed [facility] Work Phone: [phone]) [phone] Discharge summary Author Speedy Bass [facility] December 15, 2022 3:29pm Note Date/Time December 15, 2022 1 :13pm [facility] Medical Records Department [address] [place] [address] Emergency Department Summary 12/15/22 MR#: [id number] Acct: [id number] Name: YEFRI YANEZ Rep #:[id number] : 1965 57 From: Speedy Bass MD [...] 87.2 H Lymph % (Auto) 7.4 L [place] % (Auto) 4.6 Eos % (Auto) 0.1 [...] Provider] - Disposition Disposition: Acute Care Hospital [facility] What to do if you have Problems For any increased pain, shortness of breath, bleeding, nausea or vomiting, chestpain, or any unexpected problems, contact your Primary Care Provider. Call [facility] ([phone]) or report to the closest Emergency Room. Call 911 if necessary. 12/15/22 1529 <Electronically signed by Speedy Bass MD> Cosigner Signature (if applicable): CC: Dr. Jose Ramon Turner MD ~ Signed [facility] Work Phone: 1([phone]) 935-335504-24-[address] Chiu [facility] June 29, 2022 11:24am Note Date/Time June 29, 2022 11: 08am [facility] Medical Records Department [address] [place] [address] Discharge Summary 06/29/22 1105 MR#: [id number] Acct: [id number] Name: RENATAYEFRI RESHMA Rep #:[id number] : 1965 57 From: Carol Chiu DO PCP: Dr. Jose Ramon Turner MD Status: ADM IN Location: [place] [address]- 1 Providers Date of Admission: 06/28/22 Date [...] distress and well nourished Constitutional Narrative: Obese, -Guamanian, upper middle-aged, male, lying in bed talking [...] (Auto) 91.8 H, Lymph % (Auto) 2.9L, [place] % (Auto) 4.4, Eos % (Auto) 0.0, [...] Self Care Charges/Coding Visit Charges Inpatient E&M: 02289 Disch Hosp >30min 06/29/22 1124 <Electronically signed by Carol Chiu DO> Cosigner Signature (if applicable): CC: Dr. Jose Ramon Turner MD; Dr. Carol Chiu DO~ Signed [facility] Work Phone: [phone]) 375-761404-23-[address] Wei [facility] June 28, 2022 3:27pm Note Date/Time June 28, 2022 2:1 6pm [facility] Medical Records Department [address] [place] [address] Progress Note 06/28/22 1412 MR#: [id number] Acct: [id number] Name: YEFRI YANEZ Rep #:[id number] : 1965 57 From: Pau Wei MD PCP: Dr. Jose Ramon Turner MD Status: ADM IN Location: [place] [address]- 1 Subjective Subjective Patient seen and examined. He [...] 75.4 H, Lymph % (Auto) 16.8 L, [place] % (Auto) 6.0, Eos % (Auto) 0.5, [...] (Auto) 92.0 H, Lymph % (Auto) 4.6L, [place] % (Auto) 2.3, Eos % (Auto) 0.2, [...] Signed: Lul Peters MD at 23:42 EDT Reading Location ID and State: [facility] / [place] Tel , Service support , Physical Exam Const alert, oriented x3 [...] is therapeutic. Charges/Coding Visit Charges Inpatient E&M: 13839 Subs Hosp L2 06/28/22 1527 <Electronically signed by Pau Wei MD> Pau Wei MD Cosigner Signature (if applicable): CC: ~ Signed [facility] Work Phone: [phone]) 419-683504-23-[address] Ennis [facility] June 28, 2022 2:56am Note Date/Time June 27, 2022 11: 30pm [facility] Medical Records Department [address] [place] [address] Emergency Department Summary 06/27/22 MR#: [id number] Acct: [id number] Name: YEFRI YANEZ Rep #:[id number] : 1965 57 From: Livan Lin PCP: Dr. Jose Ramon Turner MD Status: ADM IN Location: [address] History of Present Illness Chief Complaint: Chest Pain Informant: patient, spouse/S.O. and family Narrative Narrative: 10-day history worsening dyspnea with exertion with mild chest discomfort. Significant other present. Diagnosed history of CHF had a heart cath at [facility] that was negative. History of paroxysmal [...] 75.4 H Lymph % (Auto) 16.8 L [place] % (Auto) 6.0 Eos % (Auto) 0.5 [...] (Auto) Neut % (Auto) Lymph % (Auto) [place] % (Auto) Eos % (Auto) Baso % [...] Lul Peters MD at 23:42 EDT , Discharge Plan Dx/Rx/DC Orders Clinical Impression: Acute exacerbation of CHF (congestive heart failure), Metastatic renal cell carcinoma to bone, CKD (chronic kidney disease), Elevated troponin, Atrial fibrillation Disposition Disposition: Acute Care Hospital [facility] Discharge Date/Time: 06/28/22 01:02 What to do if you have Problems For any increased pain, shortness of breath, bleeding, nausea or vomiting, chest pain, or any unexpected problems, contact your Primary Care Provider. Call [facility] ([phone]) or report to the closest Emergency Room. Call 911 if necessary. 06/28/22 0256 <Electronically signed by Livan Lin> Cosigner Signature (if applicable): CC: Dr. Jose Ramon Turner MD ~ Signed [facility] Work Phone: [phone]) 739-437004-23-2023 History and physical note Author Dr. Lu [facility] June 28, 2022 12:52am Note Date/Time June 28, 2022 12: 20am [facility] Medical Records Department [address] [place] [address] H&P Exam - Hospitalist 06/28/22 0007 MR#: [id number] Acct: [id number] Name: YEFRI YANEZ Rep #:[id number] : 1965 57 From: Estelita Lu MD PCP: Dr. Jose Ramon Turner MD Status: ADM IN Location: [facility] [id number]- 1 HPI - General General Date of Admission: 06/28/22 Date of Service: 06/28/22 Chief Complaint: Dyspnea, chest pain, wheezing, cough, recent incorrect Rx bumex. HPI Narrative The patient is a 57 y/o M w/ PMHx: Obesity, NIMCO on CPAP, PAF s/p prior cardioversion on coumadin, COPD, HTN, HLD, GERD, Metastatic renal CA s/p R nephrectomy, Tobacco use who presents to the [facility] ED on 06/27/22 with history [...] 75.4 H, Lymph % (Auto) 16.8 L, [place] % (Auto) 6.0, Eos % (Auto) 0.5, [...] nephrectomy, Tobacco use who presents to the [facility] ED on 06/27/22 with history [...] spine 12/2021, 02/06/2022 right radical nephrectomy at [facility], CT scan on 03/26/2022 showed no evidence [...] 75 minutes. Charges/Coding Visit Charges Inpatient E&M: 91334 Init Hosp L3 Procedures Hospitalists Procedures: 81629 Advncd Care Plan 30 Min 06/28/22 0052 <Electronically signed by Estelita Lu MD> Cosigner Signature (if applicable): CC: Dr. Estelita Lu MD; Dr. Jose Ramon Turner MD~ Signed [facility] Work Phone: [phone] Che [facility] May 20, 2022 9:40am Note Date/Time May 20, 2022 9:4 0am [facility] Medical Records Department [address] [place] [address] Discharge Summary 05/20/22 0939 MR#: [id number] Acct: [id number] Name: YEFRI YANEZ Rep #:[id number] : 1965 57 From: Jesús Che DO PCP: Dr. Jose Ramon Turner MD Status: ADM IN Location: [facility] [id number]- 1 Providers Date of Admission: 05/18/22 Primary Care [...] been compliant with the Bumex. Patient instructed toweigh himself daily and keep a record. Also [...] to been established with oncology at the [facility] and then at [facility] but due to insurance changes, he will be following up with [place]. DVT ppx: Coumadin therapeutic Discharge home [...] Qty: 60 0RF Referrals / Follow Up: [facility] [Provider Group] - 05/27/22 10:30 am *[facility] [Provider Group] - Within 1 Month Jose Ramon Turner MD [Primary Care Provider] - Within 2 Weeks Disposition Disposition (needs filled in before D/C Order can be placed): Home, Self Care Charges/Coding Visit Charges Inpatient E&M: 08034 Disch Hosp >30min 05/20/22 0940 <Electronically signed by Jesús Che DO> Cosigner Signature (if applicable): CC: Dr. Jose Ramon Turner MD; Dr. Jesús Che DO~ Signed [facility] Work Phone: [phone]) [phone] Che [facility] May 20, 2022 9:39am Note Date/Time May 20, 2022 9:3 3am [facility] Medical Records Department [address] [place] [address] Instructions for Home/Discharge Instructions 05/20/22 0932 MR#: [id number] Acct: [id number] Name: YEFRI YANEZ Rep #:[id number] : 1965 57 From: Jesús hCe DO PCP: Dr. Jose Ramon Turner MD [...] Qty: 60 0RF Referrals / Follow Up: [facility] [Provider Group] - 05/27/22 10:30 am *[facility] [Provider Group] - Within 1 Month Jose Ramon Turner MD [Primary Care Provider] - Within 2 Weeks Disposition Disposition (needs filled in before D/C Order can be placed): Home, Self Care 05/20/22 0939<Electronically signed by Jesús Che DO>Jesús Che DO CC: Dr. Jose Ramon Turner MD; Dr. Alicia Dukes MD ~ Signed [facility] Work Phone: [phone]) 386-768503-15-[address] Che [facility] May 20, 2022 9:32am Note Date/Time May 20, 2022 8:3 4am [facility] Medical Records Department [address] [place] [address] Progress Note - Hospitalist 05/20/22 0831 MR#: [id number] Acct: [id number] Name: YEFRI YANEZ Rep #:[id number] : 1965 57 From: Jesús Che DO PCP: Dr. Jose Ramon Turner MD Status: ADM IN Location: [place] [address] Reason for Visit Reason for Visit: Diagnoses [...] Cosigner Signature (if applicable): CC: ~ Signed [facility] Work Phone: [phone]) 674-631303-14-[address] Che [facility] May 19, 2022 1:50pm Note Date/Time May 19, 2022 8:1 1am [facility] Medical Records Department [address] [place] [address] Progress Note - Hospitalist 05/19/22 0808 MR#: [id number] Acct: [id number] Name: YEFRI YANEZ Rep #:[id number] : 1965 57 From: Jesús Che DO PCP: Dr. Jose Ramon Turner MD Status: ADM IN Location: [place] [address] Reason for Visit Reason for Visit: Diagnoses [...] 80.8 H, Lymph % (Auto) 13.3 L, [place] % (Auto) 4.9, Eos % (Auto) 0.2, [...] 80.2 H, Lymph % (Auto) 14.8 L, [place] % (Auto) 4.0, Eos % (Auto) 0.5, [...] 16:45 EDT Reading Location ID and State: [facility] / [place] , Service support , Physical Exam Const [...] Coumadin therapeutic Charges/Coding Visit Charges Inpatient E&M: 40127 Subs Hosp L2 05/19/22 1350 <Electronically signed by Jesús Che DO> Cosigner Signature (if applicable): CC: ~ Signed [facility] Work Phone: [phone]) 122-549303-13-[address] Banda [facility] May 18, 2022 8:58pm Note Date/Time May 18, 2022 4:1 8pm [facility] Medical Records Department [address] [place] [address] Emergency Department Summary 05/18/22 MR#: [id number] Acct: [id number] Name: YEFRI YANEZ Rep #:[id number] : 1965 57 From: Kassy Banda MD PCP: Dr. Jose Ramon Turner MD Status: ADM IN Location: [address] History of Present Illness Chief Complaint: [...] Medical decision making narrative: Patient placed on equipment monitor phototypesetting to evaluate for arrhythmia. 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 Call [facility] ([phone]) or report to the closest Emergency Room. Call 911 if necessary. 05/18/222057 <Electronically signed by Kassy Banda MD> Cosigner Signature (if applicable): CC: Dr. Jose Ramon Turner MD ~ Signed [facility] Work Phone: [phone]) [phone] History and physical note Author Dr. Dukes [facility] May 18, 2022 7:34pm Note Date/Time May 18, 2022 6:3 8pm [facility] Medical Records Department [address] [place] [address] H&P Exam - Hospitalist 05/18/22 1823 MR#: [id number] Acct: [id number] Name: YEFRI YANEZ Rep #:[id number] : 1965 57 From: Alicia Dukes MD PCP: Dr. Jose Ramon Turner MD Status: ADM IN Location: [place] [address] HPI - General General Date of Admission: 05/18/22 Date of Service: 05/18/22 Chief Complaint: SOB, weight gain HPI Narrative YEFRI YANEZ, is a 57 M with a history of congestive heart failure, hypertension, NIMCO, renal cancer status post unilateral nephrectomy in March, A-fib on Coumadin presented to [facility] 05/18/2022 with increasing weight and shortness of [...] 80.8 H, Lymph % (Auto) 13.3 L, [place] % (Auto) 4.9, Eos % (Auto) 0.2, [...] 16:45 EDT Reading Location ID and State: [facility] / [place] , Service support , Assessment & Plan [...] 60 minutes Charges/Coding Visit Charges Inpatient E&M: 48657 Init Hosp L2 05/18/221933 <Electronically signed by Alicia Dukes MD> Cosigner Signature (if applicable): CC: Dr. Jose Ramon Turner MD; Dr. Alicia Dukes MD~ Signed [facility] Work Phone: [phone]) 218-682002-08-[address] Chiu [facility] April 15, 2022 4:54pm Note Date/Time April 15, 2022 4 :54pm [facility] Medical Records Department [address] [place] [address] Progress Note - Hospitalist 04/15/22 1647 MR#: [id number] Acct: [id number] Name: YEFRI YANEZ Rep #:[id number] : 1965 57 From: Carol Chiu DO PCP: Dr. Jose Ramon Turner MD Status: ADM IN Location: [place] [address] Reason for Visit Reason for Visit: Diagnoses [...] 74.5 H, Lymph % (Auto) 15.1 L, [place] % (Auto) 8.4, Eos % (Auto) 0.4, [...] distress and well nourished Constitutional Narrative: Obese, -Guamanian, male lying in bed on supplemental oxygen [...] be deferred till tomorrow -Troponins have been [phone] -This elevation may be related to his [...] post nephrectomy 02/06/2022--> Dr. Aravind Lopez at [facility] -Currently on chemotherapy -Patient has undergone [...] -INR therapeutic Charges/Coding Visit Charges Inpatient E&M: 38449 Subs Hosp L2 04/15/22 1654 <Electronically signed by Carol Chiu DO> Cosigner Signature (if applicable): CC: ~ Signed [facility] Work Phone: 1(966) 548-506002-07-[address] Chiu [facility] April 14, 2022 6:11pm Note Date/Time April 14, 2022 7 :40am [facility] Medical Records Department [address] [place] [address] Progress Note - Hospitalist 04/14/22 0737 MR#: [id number] Acct: [id number] Name: YEFRI YANEZ Rep #:[id number] : 1965 57 From: Carol Chiu DO [...] on February 06 by Aravind Lopez at [facility]. 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 Aravind Lopez at [facility] -Currently on chemotherapy -Patient has undergone [...] in a.m. Charges/Coding Visit Charges Inpatient E&M: 14665 Subs Hosp L2 04/14/221810 <Electronically signed by Carol Chiu DO> Cosigner Signature (if applicable): CC: ~ Signed [facility] Work Phone: [phone]) 252-691602-07-2023 History and physical note Author Dr. Camacho [facility] April 14, 2022 12:43am Note Date/Time April 14, 2022 1 2:24am [facility] Medical Records Department [address] [place] [address] H&P Exam - Hospitalist 04/13/22 2334 MR#: [id number] Acct: [id number] Name: YEFRI YANEZ Rep #:[id number] : 1965 57 From: Dangelo Camacho MD [...] 25 mg tablet 12.5 mg PO DAILY 10/02/22 [History Last Taken Unknown] torsemide 40 mg [...] 79.4 H, Lymph % (Auto) 12.7 L, [place] % (Auto) 7.1, Eos % (Auto) 0.0, [...] is subtherapeutic. Charges/Coding Visit Charges Inpatient E&M: 18326 Init Hosp L3 04/14/22 0043 <Electronically signed by Dangelo Camacho MD> Cosigner Signature (if applicable): CC: Dr. Jose Ramon Turner MD; Dr. Dangelo Camacho MD~ Signed [facility] Work Phone: [phone] Dunn [facility] April 13, 2022 11:51pm Note Date/Time April 13, 2022 1 0:31pm [facility] Medical Records Department [address] [place] [address] Emergency Department Summary 04/13/22 MR#: [id number] Acct: [id number] Name: YEFRI YANEZ Rep #:[id number] : 1965 57 From: Kei Dunn DO [...] February [address] Aravind Lopez at [facility]. Patient reported that he is on [...] 79.4 H Lymph % (Auto) 12.7 L [place] % (Auto) 7.1 Eos % (Auto) 0.0 [...] your Primary Care Provider. Call [facility] ([phone]) or report to the closest Emergency Room. Call 911 if necessary. 04/13/222350 <Electronically signed by Kei Dunn DO> Cosigner Signature (if applicable): CC: Dr. Jose Ramon Turner MD ~ Signed [facility] Work Phone: 1([phone]) 417-853502-07-[address] Dunn [facility] April 13, 2022 11:51pm Note Date/Time April 13, 2022 1 0:31pm [facility] Medical Records Department [address] [place] [address] Emergency Department Summary 04/13/22 MR#: [id number] Acct: [id number] Name: YEFRI YANEZ Rep #:[id number] : 1965 57 From: Kei Dunn DO [...] February [address] Aravind Lopez at [facility]. Patient reported that he is on [...] 79.4 H Lymph % (Auto) 12.7 L [place] % (Auto) 7.1 Eos % (Auto) 0.0 [...] your Primary Care Provider. Call [facility] ([phone]) or report to the closest Emergency Room. Call 911 if necessary. 04/13/22 2351 <Electronically signed by Kei Dunn DO> Cosigner Signature (if applicable): CC: Dr. Jose Ramon Turner MD ~ Signed [facility] Work Phone: 1(601) 457-840902-02-2023 NoteHNO ID: [id number] Author: Sary Garcia RN Service: ? Author Type: Registered Nurse Type: Progress Notes Filed: 04/09/2022 1:29 PM Note Text: Patient treatment being held today per physician discretion. Sary Garcia RN [facility]02-02-2023 NoteHNO ID: [id number] Author: Liliam Ashley RN Service: ? Author Type: Registered Nurse Type: Progress Notes Filed: 04/09/2022 1:29 PM Note Text: Safety Relief Valve Technician Chart Processing Date: 2022 Laboratory: Draw labs: Pending Labs. Office visit prior to treatment please verify all needed labs were drawn and review results. Chemotherapy Orders: Orders NOT released to Pharmacy. TREATMENT RN TO RELEASE Consents: Consent form needs signed by patient Special Instructions: Validate height [facility]iliam [facility] RN[facility] History of Present illness Narrative* Sary Garcia RN - 04/09/2022 1:29 PM EST Patient treatment being held today per physician discretion. Sary Garcia RN BSN * Liliam Ashley RN - 04/09/2022 11:30 AM EST Safety Relief Valve Technician Chart Processing Date: 2022 Laboratory: Draw labs: Pending Labs. Office visit prior to treatment please verify all needed labs were drawn and review results. Chemotherapy Orders: Orders NOT released to Pharmacy. TREATMENT RN TO RELEASE Consents: Consent form needs signed by patient Special Instructions: Validate height Liliam Ashley RN documented in this encounterC[facility]02-[facility]-2023 NoteHNO ID: [id number] Author: Haylee Wilburn MD Service: ? Author Type: Physician Type: Progress Notes Filed: 04/09/2022 4:21 PM Note Text: [facility] Progress Note SERVICE DATE: April 09, [...] started treatment with cabo + nivo on [facility] 1820 Trial on 08/08/2021 at [facility]. He has baseline HTN and developed worsening HTN after starting treatment. His cabo was held on 08/18/2021, resumed on 09/11/2021. The Nivo was held on 09/11/21 due to pneumonitis, and prednisone 60 mg daily was started and tapered off within about one month. Due to insurance change, he was taken off the trial and referred to [facility] Oncology. All treatments were supposed to be [...] radical nephrectomy by Dr. Aravind Hernandez at [facility] in [facility] on 02/06/2022. PATHOLOGY: -Renal cell carcinoma, clear-cell type, 5.3 x 3.0 x 2.7 cm, ISUP nuclear grade 3. -Carcinoma invades renal vein and lurdes-nephritic adipose tissue. -Margins of resection are negative for carcinoma. -Lymphovascular invasion not identified. -Regional lymph nodes not submitted. -[id number]. 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 He denies pain in the chest wall [...] tablet Take 2 table (more content not included)...[facility]01-26-2023 Miscellaneous Notes* Telephone Encounter - Donavon Eastman - 04/02/2022 11:02 AM EST Patient did not show for appointment with , left message to call office put on recall Donavon Eastman' documented in this encounterC[facility]01-26-2023 Miscellaneous Notes* Telephone Encounter - America Schwartz RN - 04/02/2022 10:51 AM ESTSummary: Appointment Called patient and in regards to missed office visit with Dr. Wilburn, and immunotherapy appointment. No answer left messages for patient to call and reschedule. America Schwartz RN, BSN, OCN documented in this encounterC[facility]01-19-2023 NoteHNO ID: [id number] Author: Jerica Parsons RT(R) Service: Radiology Author [...] Yanez DATE: March 26, 2022 TIME: 10:16 [facility]01-18-2023 Miscellaneous Notes* Telephone Encounter - Tania Parekh RN - 03/25/2022 8:57 AM EST Patient called stating his insurance is not approved for our office and that Dr. Wilburn needs to place a Referral for [facility]. I reminded him that last week he called me telling me that his insurance is making him go to [facility] for the scans and not [facility] and [...] next week if need be. Message Tessa Abdirahman, our director so that maybe she can clarify the insurance information.Tania Parekh RN documented in this encounterCleveland Clinic [facility]01-16-2023 NoteHNO ID: [id number] Author: RT Citlaly(R) Service: ? Author Type: [...] 08:45 PATIENT DISCHARGED TO: Ambulatory patient, left [place] department area. A Diagnostic radioactive procedure has taken place, with no further precautions necessary other than routine body substance precautions. More information regarding radiation safety can be found using this link: [email or web address] SIGNATURE: RT Citlaly(R) PATIENT NAME: Yefri Yanez DATE: March 23, 2022 TIME: 12:10 PM PAGER/CONTACT #:[facility]01-16-2023 History of Present illness Narrative* RT Citlaly(R) - 03/23/2022 12:10 PM EST RADIOLOGY SERVICE [...] 08:45 PATIENT DISCHARGED TO: Ambulatory patient, left [place] department area. A Diagnostic radioactive procedure has taken place, with no further precautions necessary other than routine body substance precautions. More information regarding radiation safety can be found usingthis link: [email or web address]%[email or web address] SIGNATURE: RT Citlaly(Damion) PATIENT NAME: Yefri Yanez DATE: March 23, 2022 TIME: 12:10 PM PAGER/CONTACT #: documented in this encounterCleveland Clinic South [facility]01-09-2023 Miscellaneous Notes* Telephone Encounter - Malachi Schaffer RP - 03/16/2022 11:27 AM EST Prior authorization was approved for Inlyta. Plan Name: [employer] [place] reference number: [id number] Approval Dates: 03/08/2022 - 03/13/2023 However, s/he is required to use [facility] to fill this medication. Will queue prescription(s) to go to designated specialty pharmacy. For reference, their pharmacy phone number is [phone]. No further action by [facility]. Radha Schaffer, PharmD, AAHIVP Clinical Pharmacist, Oncology [facility] P: ; F: Pool: P [facility] ONCOLOGY Pool #: [id number] documented in this encounterCleveland Clinic South Pointe Hospital01-05-2023 Miscellaneous Notes* Telephone Encounter - America Schwartz RN - 03/12/2022 10:37 AM ESTSummary: Appointment LMOM with the appointment dates, times and location of upcoming bone scan and CT scans. Bone scan 03/23/22 at 830 am here at the [facility]. CT scans at [place] urgent care 03/24/22 at 1pm. America Reed RN, BSN, OCN documented in this encounterCleveland Clinic South Pointe [facility]01-05-2023 [facility]01-05-2023 History of Present illness Narrative* Adrienne Chung (Garment Worker) - 03/12/2022 8:13 AM EST [facility] received prescription(s) for Inlyta from Dr. Wilburn's office. Benefits investigation was conducted, indicating that a prior authorization is required by patient's insurance plan with [employer]. Encounter will be updated once prior authorization has been submitted by [facility]. Adrienne Chung, Lead [facility], Oncology P: / F: documented in this encounterCleveland Clinic South Pointe Hospital01-04-2023 NoteHNO ID: [id number] Author: Haylee Wilburn MD Service: ? Author Type: Physician Type: Progress Notes Filed: 03/11/2022 4:16 PM Note Text: [facility] Progress Note SERVICE DATE: March 11, [...] started treatment with cabo + nivo on [facility] 1820 Trial on 08/08/2021 at [facility]. He has baseline HTN and developed worsening HTN after starting treatment. His cabo was held on 08/18/2021, resumed on 09/11/2021. The Nivo was held on 09/11/21 due to pneumonitis, and prednisone 60 mg daily was started and tapered off within about one month. Due to insurance change, he was taken off the trial and referred to [facility] to resume the treatment. He was scheduled to have nephrectomy on 11/04/21, but delayed due to his back pain. He underwent palliative XRT to L3-L5 (2,000 cGy in 5 fx), completed 12/26/21). He underwent da Farzad assisted robotic right radical nephrectomy at [facility] in [facility]. I do not have the official pathology report yet. We have made multiple requests to [facility] for the surgical pathology, to no avail. [...] Admin perflutren lipid microsphere (more content not included)...[facility] 03-11-2022 History of Present illness Narrative* Haylee Wilburn MD - 03/11/2022 1:25 PM EST Images from the original note were not included. [facility] Progress Note SERVICE DATE: March 11, [...] started treatment with cabo + nivo on [facility] 182 Trial on 08/08/2021 at [facility]. He has baseline HTN and developed worsening HTN after starting treatment. His cabo was held on 08/18/2021, resumed on 09/11/2021. The Nivo was held on 09/11/21 due to pneumonitis, and prednisone 60 mg daily was started and tapered off within about one month. Due to insurance change, he was taken off the trial and referred to [facility] to resume the treatment. He was scheduled to have nephrectomy on 11/04/21, but delayed due to his back pain. He underwent palliative XRT to L3-L5 (2,000 cGy in 5 fx), completed 12/26/21). He underwent da Farzad assisted robotic right radical nephrectomy at [facility] in [facility]. I do not have the official pathology report yet. We have made multiple requests to [facility] for the surgical pathology, to [...] mL (BD POSIFLUSH) 10 mL INTRAVENOUS DIRECTED PRBelkis Tello MD REVIEW OF SYSTEMS: Review of [...] underwent radical nephrectomy by Dr. Lopez at [facility], but I do not have [...] cc: Daksha Turner MD documented in this encounterCleveland Clinic South Pointe Hospital12-27-2022 NoteSend Summary: Discharge Summary Providers: Provider RoleProvider Name Aravind Kinsey Christopher Note Recipients: Aravind Hernandez MD Ranney, Christopher, MD - [id number] [] Discharge: Summary: Admission Date: .06-Feb-2022 08:57:00 [...] Data Referenced From Consult-DACR, Medicine 07-Feb-2022 16:43[facility]12-13-2022 NoteHNO ID: [id number] Author: Haylee Wilburn MD Service: ? Author Type: Physician Type: Progress Notes Filed: 02/17/2022 5:25 PM Note Text: [facility] Progress Note SERVICE DATE: February 17, [...] started treatment with cabo + nivo on [facility] 182 Trial on 08/08/2021 at [facility]. He has baseline HTN and developed worsening HTN after starting treatment. His cabo was held on 08/18/2021, resumed on 09/11/2021. The Nivo was held on 09/11/21 due to pneumonitis, and prednisone 60 mg daily was started and tapered off within about one month. Due to insurance change, he was taken off the trial and referred to [facility] to resume the treatment. He was scheduled to have nephrectomy on 11/04/21, but delayed due to his back pain and palliative XRT to L3-L5 (2,000 cGy in 5 fx, completed 12/26/21). His back pain has resolved. He underwent da Farzad assisted robotic right radical nephrectomy at [facility] in [facility]. I do not have the official [...] headaches and light-headedness. Hematol (more content not included)...[facility]12-13-2022 History of Present illness Narrative* Haylee Wilburn MD - 02/17/2022 5:02 PM EST Images from the original note were not included. [facility] Progress Note SERVICE DATE: February 17, 2022 [...] started treatment with cabo + nivo on [facility] 1820 Trial on 08/08/2021 at [facility]. He has baseline HTN and developed worsening HTN after starting treatment. His cabo was held on 08/18/2021, resumed on 09/11/2021. The Nivo was held on 09/11/21 due to pneumonitis, and prednisone 60 mg daily was started and tapered off within about one month. Due to insurance change, he was taken off the trial and referred to [facility] to resume the treatment. He was scheduled to have nephrectomy on 11/04/21, but delayed due to his back pain and palliative XRT to L3-L5 (2,000 cGy in 5 fx, completed 12/26/21). His back pain has resolved. He underwent da Farzad assisted robotic right radical nephrectomy at [facility] in [facility]. I do not have the official [...] MD on 10/20/2021 PLAN: Old records from [facility] including surgical pathology and scans. Follow-up in 3 weeks regarding systemic therapy. Haylee Wilburn MD cc: Daksha Turner MD documented in this encounterCleveland Clinic South Pointe Hospital12-13-2022 Miscellaneous Notes* Telephone Encounter - Florian [...] with Dr. Tello. Please call her at [phone]. documented in this encounterCleveland Clinic South Pointe Hospital12-12-2022 NoteHNO ID: [id number] Author: Sayra Tello MD Service: ? Author Type: Physician Type: Progress Notes Filed: 02/16/2022 11:29 AM Note Text: [facility] OUTPATIENT VISIT DATE 02/16/2022 OUTPATIENT VISIT TYPE NEW PATIENT PRIMARY CARE PHYSICIAN: Daksha Turner (Sarah) [address] [place] [id number] HISTORY OF PRESENT ILLNESS: 57-year-old male CAD, [...] sometimes tobacco. 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 PAST MEDICAL HISTORY Diagnosis Date Abdominal aortic [...] 1 tablet by kellie (more content not included)...[facility]12-12-2022 Instructions* Patient Instructions* Florian Mello RN - 02/16/2022 11:23 AM EST We will call you with the date and time of your test. Please report to the Cardiac Diagnostics Department: Located on the 2nd floor of the surgery center on [address] ([address] west). Community Relations Liaison and free parking is available. The test may be scheduled at a different location. If this happens the web operations lead will notify you when calling to give you the date and time information. If you have any questions regarding the test or if you need to cancel / reschedule your appointment, please call [phone] as soon as possible. Please refer to [...] them, faxthem, drop them off, or use [employer] If you have any questions before your next appointment please call Florian Montana RN @ [phone] ext [phone]. If Adrienne asked you to call her so she can help you with [email or web address] you can call her at [phone] ext [phone]. documented in this encounterCleveland Clinic South Pointe Hospital12-12-2022 History of Present illness Narrative* Sayra Tello MD - 02/16/2022 10:00 AM EST Images from the original note were not included. [facility] OUTPATIENT VISIT DATE 02/16/2022 OUTPATIENT VISIT TYPE NEW PATIENT PRIMARY CARE PHYSICIAN: Daksha Turner (Tangela) [address] [place] [id number] HISTORY OF PRESENT ILLNESS: 57-year-old male CAD, [...] sometimes tobacco. 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 PAST MEDICAL HISTORY Diagnosis Date Abdominal aortic [...] - Significant biventricular systolic dysfunction on limited LISA imaging. - Exam was compared with the prior CC echocardiographic exam performed on 09/04/2021. No left atrial or left atrial appendage thrombus on limited, focused LISA imaging. * * * Final * * * Last EKG Result Conclusion EKG Collected: 01/19/2022 11:29 AM (Final result) Impression: Atrial fibrillation Abnormal ECG No previous ECGs available Confirmed by YARY CLEMENT, [facility] ([id number]) on 01/20/2022 8:35:[address] Result Conclusion CT CHEST W IVCON Exam End: 11/20/2021 10:37 AM (Edited Result - FINAL) Addendum: * * *Final Report* * * * * * SEE BOTTOM OF REPORT FOR ADDENDED TEXT * * * DATE OF EXAM: Nov 20 2021 10:37AM [facility] 0539 - CT CHEST W IVCON / [...] sometimes tobacco. 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 Plan: Reviewed all the prior reports including [...] diagnosis) Sayra Tello MD documented in this encounterCleveland Clinic South Pointe Hospital12-09-2022 NoteHNO ID: [id number] Author: Suman Peterson APRN.CONCRETE MIXER OPERATOR HELPER Service: ? Author Type: Nurse Practitioner Type: [...] or develops any concerning symptoms. Suman Peterson APRN.[facility]12-09-2022 Nurse Note* Tamiko Mason RN - 02/13/2022 2:13 PM EST Images from the original note were not included. Radiation Therapy - Nursing Note (Follow-up) PATIENT NAME: Yefri Yanez PATIENT February 13, 2022 [facility] FACILITY/LOCATION: [facility] Reason for visit: Follow up. Subjective Data Patient reports 8/10 pain r/t recent right nephrectomy at on 02/06. Additional Data Do you want to see a Campus Director? No Difficulty performing or completing routine daily [...] 02/16/2022 10:00 AM MD KIMBERLY Juan MD 02/17/2022 11:30 AM Haylee Wilburn MD [facility] Courtney CLEMENT MOB SIGNED by: Tamiko Mason RN documented in this encounterCleveland Clinic South Pointe Hospital12-09-2022 History of Present illness Narrative* Suman Peterson APRN.CONCRETE MIXER OPERATOR HELPER - 02/13/2022 2:02 PM EST Radiation Oncology [...] symptoms. Suman Peterson APRN.BEATRICE documented in this encounterCleveland Clinic South Pointe Hospital12-06-2022 Hospital Discharge instructions* Follow Up Appointment 1:Physician/Dept/Service: Dr. Lockett for Referral: post op follow upCall to Schedule in: 2 weeksPhone Number: [phone]: Please call to schedule appointment * Follow Up Appointment 2:Physician/Dept/Service: Primary Care physicianDe for Referral: Hospitalfollow up - blood pressureComments: [...] WORRISOME - NOTIFY YOUR PHYSICIAN OR RESIDENT CERTIFIED PESTICIDE APPLICATOR. - Fever g reater than 101 F or 38.3 C, chills, nausea, vomiting, or feeling ill. - Inability to urinate. - Drainage of foul smelling fluid (pus) from the incision or drain sites. - Excruciating pain that is not controlled by prescription or eoad-xwl-ysxflwi medications. * Medication Information:- You were sent [...] appointments, please call our Main Office at [phone]. [facility]-02-[facility]22 NotePROCEDURE DETAILS Preoperative Diagnosis: renal cell carcinoma, congestive heart failure Postoperative Diagnosis: renal cell carcinoma, congestive heart failure Surgeon: Aravind Hernandez MD Resident/Fellow/Other Aviation Manager: Clau Diallo MD Procedure: laparoscopic right radical [...] to the xiphoid process. A 12 mm assistant executive housekeeper port was placed a hands-breadth inferolateral to [...] then closed in several layers. Initially, several sbgzrg-re-ovmzx sutures were placed with 0 Vicryl to reapproximate the bellies of the rectus abdominis. The anterior rectus fascia was then closed using running 0 PDS suture x2. Subcutaneous fat was then c (more content not included)...[facility] Note History & Physical Reviewed: I have [...] the note. I personally evaluated the patient [id number] Electronic Signatures: Aravind Hernandez) (Signed 07-Feb-2022 09:05) Authored: Note Completion Co-Signer: History & Physical Reviewed, ERAS, Consent, Note Completion Clau Diallo (Resident)) (Signed 06-Feb-2022 07:12) Authored: History & Physical Reviewed, ERAS, Consent, Note Completion Last Updated: 07-Feb-2022 09:05 by Aravind Hernandez)[facility] 01-22-2022 Miscellaneous Notes* Telephone Encounter - Bairon Landers MA - 01/22/2022 1:00 PM EST Pt called in to request a refill on his torsemide to be sent to [facility] in [place], this request wassent to Kitty Carballo for approval and processing. Per Kitty this was refused due to we don't prescribe this medication, I called to advise Pt that he will need to contact the prescribing doctor to get a refill on this mediation. He verbalized understanding. documented in this encounterCleveland Clinic South Pointe Hospital11-14-2022 NoteHNO ID: [id number] Author: RT Kourtney(R) Service: Radiology Author Type: [...] BY: RT Kourtney(R) January 19, 2022 11:03 [facility]11-14-2022 History of Present illness Narrative* Jason Petersen RT(R) - 01/19/2022 10:45 AM ESTSummary: CHEST Radiology [...] 19, 2022 11:03 AM documented in this encounterCleveland Clinic South Pointe Hospital10-28-2022 NoteHNO ID: [id number] Author: Alfredo Xavier MD Service: Radiation Oncology Author Type: Physician Type: Progress Notes Filed: 01/07/2022 12:35 AM Note Text: YEFRI YANEZ [id number] 2022 [facility] Department of Radiation Oncology [facility] RADIATION ONCOLOGY: COMPLETION NOTE DATE OF SIMULATION: 12/12/2021 DATES OF TREATMENT: 12/22/2021 to 12/26/2021 TREATMENT MACHINE: Hauler[employer]als TREATMENT AREA: L3-L5 , R CW DIAGNOSIS: 57 year old male with Malignant neoplasm of right kidney, except renal pelvis , histological stage [id number] and clinical stage IV CONCURRENT THERAPY: DELIVERED [...] Please send your suggestions of improvement to [email or web address] Staff Physician Alfredo Xavier M.D. :36 PM Electronically Signed cc: Daksha Mills, [facility]10-28-2022 History of Present illness Narrative * Alfredo Xavier MD - 2022 12:00 AM EDT YEFRI YANEZ [id number] 2022 [facility] Department of Radiation Oncology [facility] RADIATION ONCOLOGY: COMPLETION NOTE DATE OF SIMULATION: 12/12/2021 DATES OF TREATMENT: 12/22/2021 to 12/26/2021 TREATMENT MACHINE: HaulerDeals TREATMENT AREA: L3-L5 , R CW DIAGNOSIS: 57 year old male with Malignant neoplasm of right kidney, except renal pelvis , histological stage [id number] and clinical stage IV CONCURRENT THERAPY: DELIVERED [...] satisfaction. Please send your suggestions of improvementto [email or web address] Staff Physician Alfredo Xavier M.D. :36 PM Electronically Signed cc: Daksha Mills Michael documented in this encounterCleveland Clinic South Pointe Hospital10-25-2022 Miscellaneous Notes* Telephone Encounter - Adriana Hodge MD - 12/30/2021 1:53 PM EDT IC Adriana Hodge MD documented in this encounterCleveland Clinic South Pointe Hospital10-23-2022 Miscellaneous Notes* Telephone Encounter - Adriana [...] the anaestheic including but not limited to NH, CVA, DVT, and PE, and the risks [...] proceed. Adriana Hodge MD documented in this encounterCleveland Clinic South Pointe Hospital10-22-2022 Miscellaneous Notes* Telephone Encounter - Adriana Hodge MD - 12/27/2021 7:07 PM EDT I tried to call to move his care forward, but had to leave messages on both lines Adriana Hodge MD documented in this encounterCleveland Clinic South Pointe Hospital10-07-2022 NoteHNO ID: [id number] Author: Alfredo Xavier MD Service: Radiation Oncology Author Type: Physician Type: Progress Notes Filed: 12/17/2021 12:34 AM Note Text: YEFRI YANEZ [id number] 12/12/2021 [facility] Department of Radiation Oncology Treatment Planning Note [...] DVH. Electronically Signed Alfredo Xavier M.D. 25:19 [facility]10-07-2022 NoteHNO ID: [id number] Author: Alfredo Xavier MD Service: Radiation Oncology Author Type: Physician Type: Progress Notes Filed: 12/17/2021 12:34 AM Note Text: YEFRI YANEZ [id number] 12/12/2021 [facility] Department of Radiation Oncology [facility] RADIATION ONCOLOGY SIMULATION NOTE DATE OF SIMULATION: 12/12/2021 MACHINE: [employer] CT DIAGNOSIS: Malignant neoplasm of right kidney, [...] nursing. Electronically Signed Alfredo Xavier M.D. :06 [facility]10-07-2022 History of Present illness Narrative* Alfredo Xavier MD - 12/12/2021 12:00 AM EDT YEFRI YANEZ [id number] 12/12/2021 [facility] Department of Radiation Oncology Treatment Planning Note [...] DVH. Electronically Signed Alfredo Xavier M.D. :19 PM documented in this encounterCleveland Clinic South Pointe Hospital10-07-2022 History of Present illness Narrative* Alfredo Xavier MD - 12/12/2021 12:00 AM EDT YEFRI YANEZ [id number] 12/12/2021 [facility] Department of Radiation Oncology [facility] RADIATION ONCOLOGY SIMULATION NOTE DATE OF SIMULATION: 12/12/2021 MACHINE: [employer] CT DIAGNOSIS: Malignant neoplasm of right kidney, [...] nursing. Electronically Signed Alfredo Xavier M.D. :06 PM documented in this encounterCleveland Clinic South Pointe Hospital10-04-2022 NoteHNO ID: [id number] Author: Alfredo Xavier MD Service: ? Author [...] He was evaluated in the ER at [facility]. As part of his work-up a [...] Nondistended. Musculoskeletal: No e (more content not included)...[facility] 12-09-2021 Nurse Note* Tamiko Mason RN - 12/09/2021 10:18 AM EDT Images from the original note were not included. Radiation Therapy - Nursing Note (Consult) PATIENT NAME: Yefri Yanez PATIENT December 09, 2021 [facility] FACILITY/LOCATION: [facility] Chief Complaint: Metastatic Renal Cell Cancer Reason for visit: Consult. Referring physician: Internal provider Dr. Cox, Dr. Wilburn Subjective Data: Patient denies pain at this time, he reports occasional pain in his lower back farnaz cramping sensation in the back of his thighs. He denies pain to the chest wall/rib. He reports that he was just discharged today from [facility]. He was admitted on Wednesday for shortness of breath. He reportedly received lasix and breathing treatments. He has an upcoming appt with his biscuit machine operator, [facility]. [facility] at [facility]. Additional Data Do you want to see a Campus Director? No Are you interested in information about fertility? No Sexual Activity: Male: N/A Stress Scale: On a scale of 0 to 10, what number best describes how much distress you have experienced in the past week?(0 being no distress and 10 being extreme distress) 2 Social work notified: no GENERAL INFORMATION: PREVIOUS CHEMOTHERAPY: Pt started chemotherapy with Cabometyx + Nivolumab as per [facility] 1819 Trial. Reportedly this was held d/t [...] oxygen in the home? No Employment: Retired [employer] ADVANCED DIRECTIVES: Does the patient have an [...] by: Tamiko Mason RN documented in this encounterCleveland Clinic South Pointe Hospital10-04-2022 History of Present illness Narrative* Alfredo [...] on ice. He was evaluated in the [facility]. As part of his work-up a [...] disease. Will schedule a simulation. Signed by: Alfredo Xavier MD cc: Daksha Turner ([facility]) [address] [place] [phone] documented in this encounterCleveland [id number] Telephone encounter Note * Telephone Encounter - Noreen Morejon - 12/09/2021 9:28 AM EDT Patient unable to contact No voicemail to return call Invalid Number Letter sent CALI May [employer] [facility] [address] [place] [address] [email or web address] Miscellaneous Notes* Telephone Encounter - Noreen Morejon - 12/09/2021 9:28 AM EDT Patient unable to contact No voicemail to return call Invalid Number Letter sent CALI May [facility] [address] [place] [address] [email or web address] documented in this [id number] Miscellaneous Notes* Telephone Encounter - Adriana Hodge [...] his Adriana Hodge MD documented in this encounterCleveland Clinic South Pointe Hospital09-19-2022 Miscellaneous Notes* Telephone Encounter - America Schwartz RN - 11/24/2021 12:23 PM EDTSummary: Requesting pain medication Patient is requesting patient medication for pain in bilateral legs, states that it is a 6/10 constant cramping. Informed patient that nurse will discuss with physician and return call. Patient verbalized understanding. America Schwartz RN, BSN, OCN documented in this encounterCleveland Clinic South Pointe Hospital09-15-2022 [facility]Sam[facility]09-15-2022 NoteSam[facility]itan Hospital09-15-2022 History of Present illness Narrative* Marcelino [...] November 20, 2021 TIME: 10:16 AM * RT Chelo(R) - 11/20/2021 10:30 AM EDT Radiology Service [...] Intact, Site disposition Discontinued SIGNED BY: RT Chelo(R) November 20, 2021 10:33 AM documented in this encounterCleveland Clinic South Pointe Hospital09-14-2022 NoteHNO ID: [id number] Author: Haylee Wilburn MD Service: ? Author Type: Physician Type: Progress Notes Filed: 11/19/2021 9:58 AM Note Text: [facility] Progress Note SERVICE DATE: November 19, 2021 [...] started treatment with cabo + nivo on [facility]20 Trial on 08/08/2021 at [facility]. He has baseline HTN and developed worsening HTN after starting treatment. His cabo was held on 08/18/2021, resumed on 09/11/2021. The Nivo was held on 09/11/21 due to pneumonitis, and prednisone 60 mg daily was started and tapered off within about one month. Due to insurance change, he was taken off the trial and referred to [facility] to resume the treatment. He was [...] is scheduled to have radical nephrectomy at [facility] soon after the repeat CT. STAGE: [...] surgery. Haylee Wilburn MD cc: Daksha Turner, [facility]09-14-2022 NoteHNO ID: [id number] Author: Haylee Wilburn MD Service: ? Author Type: Physician Type: Progress Notes Filed: 11/25/2021 3:53 PM Note Text: Note opened in [facility]09-14-2022 NoteHNO ID: [id number] Author: Bernarda Kee MA Service: ? Author Type: Records Section Supervisor Type: Progress Notes Filed: 11/19/2021 9:58 AM Note Text: This note was created using [employer]. Subjective Yefri Yanez is a 56 year [...] BMI 37.59 kg/m? Physical Exam Assessment and [facility]09-14-2022 History of Present illness Narrative* Haylee Wilburn MD - 11/19/2021 9:33 AM EDT Images from the original note were not included. [facility] Progress Note SERVICE DATE: November 19, 2021 [...] started treatment with cabo + nivo on [facility] Trial on 08/08/2021 at [facility]. He has baseline HTN and developed worsening HTN after starting treatment. His cabo was held on 08/18/2021, resumed on 09/11/2021. The Nivo was held on 09/11/21 due to pneumonitis, and prednisone 60 mg daily was started and tapered off within about one month. Due to insurance change, he was taken off the trial and referred to [facility] to resume the treatment. He was [...] oriented to person, place, and time. IMPRESSION: Yefir Yanez is a 56 year old male diagnosed with metastatic RCC in June. He started neoadjuvant Cabo/Nivo, held due to HTN and pneumonitits since August. He is scheduled to have radical nephrectomy at [facility] soon after the repeat CT. STAGE: [...] AM EDT This note was created using [employer]. Subjective Yefri Yanez is a 56 year [...] Exam Assessment and Plan documented in this encounterCleveland Clinic South [facility]09-01-2022 Miscellaneous Notes* Telephone Encounter - Tania Parekh RN - 11/06/2021 9:30 AM EDT Spoke with new accounts banking representative from [facility], she is asking that we reach out to patient to have them deliver his Cabometyx. She stated they have called him multiple times, yet he will not answer, and the one time he did answer she went over who she was and patient hung up on her.Tania Parekh RN documented in this encounterCleveland Clinic South Pointe Hospital08-22-2022 Miscellaneous Notes* Telephone Encounter - Lisa Christensen PA-C - 10/27/2021 3:14 PM EDT Images from the original note were not included. Lalo Black MD You; [facility] 1 18 minutes ago [...] 10/27/2021 12:[address]T Good afternoon Dr. Black, Your patient was recently seen for preanesthesia [...] you for your help, Lisa Christensen PA-C [facility] documented in this encounterCleveland Clinic South Pointe Hospital08-22-2022 History and physical note * Lisa Christensen PA-C - 10/27/2021 11:30 AM EDT Images from the original note were not included. HISTORY AND PHYSICAL EXAMINATION SERVICE DATE: 10/27/2021 SERVICE TIME: 11:30 AM PRIMARY CARE PHYSICIAN: Daksha Turner MD REASON FOR VISIT: Yefri Yanez is a 56 year old [...] on carvedilol and warfarin, following with Dr. Black. +HFrEF - LVEF 40% on Echo 09/27/19, on spironolactone and torsemide. +MR - severe, 3-4+ on Echo 09/26/2021. +CAD - nonobstructive on LHC 08/05/21. Negative for DVT/PE GI: +GERD Negative [...] 366 QTC Calculation (Bazett) 440 Calculated R Orchard 68 Calculated T Orchard 72 Impression ATRIAL FIBRILLATION NONSPECIFIC T WAVE [...] prior LISA Recent Results (from the past 63095 hour(s)) ECHO Collection Time: 09/04/21 11:03 AM [...] the prior echocardiographic exam performed on 07/15/2021 - RVSP has decreased to 35 mmHg from 58 mmHg. * * * Final * * * [facility] 08/05/2021 + + DIAGNOSTIC FINDINGS [...] on carvedilol and warfarin, following with Dr. Black. Pt and report that they have been having some problems with insurance and certain [facility] doctors beingout of network. Pt reports that PCP is managing warfarin at this time. Irregularly irregular rhythmon exam today, ECG pending. TE sent to Dr. Black for cardiac optimization and warfarin clearance. Nonrheumatic mitral valve regurgitation Assessment: Severe 3-4+ on Echo 09/26/2021. Acute decompensated heart failure (HCC) Assessment: LVEF 40% on Echo 09/27/19, on spironolactone and torsemide. ESOPHAGEAL REFLUX Assessment: Stable, sx managed on Protonix. Prediabetes Assessment: A1C 6.4 in 08/2021. CAD (coronary artery disease) Assessment: Nonobstructive on [facility] 08/05/2021. METS: Climb a flight [...] warfarin clearance. - TE sent to Dr. Black on 10/27/2021. Addendum 10/27/2021 Cardiac optimization and warfarin clearance received from Dr. Black, see TE in [facility] on 10/27/2021. Called pt and informed him of warfarin instructions, pt verbalized understanding. Lalo Black MD You; [facility] 1 18 minutes ago [...] Initiated: Orders placed by surgeon/surgical service in [facility]. Planned Anesthetic: Per anesthesia choice Instructions Given to Patient: Instructions located in the after visit summary. Patient given verbal and written preop instructions and voices comprehension and compliance. SIGNATURE: Lisa Christensen PA-C PATIENT NAME: Yefri Yanez DATE: October 24, 2021 TIME: 11:08 AM documented in this encounterCleveland Clinic South Pointe Hospital08-19-2022 Instructions* Patient Instructions* Lisa Christensen PA-C - 10/24/2021 11:20 AM EDT PATIENT PREOPERATIVE INSTRUCTIONS Adriana Hodge MD has scheduled you for your procedure at this surgery center: [facility] [place] Scheduling Office: [phone] --[address] [place] [address]. Please read below carefully for your personalized [...] NOT stop warfarin without consulting with your biscuit machine operator or prescribing physician. - Stop Vitamin E, [...] call the Wednesday before. Your surgeon s web operations lead will tell you what time to call the office. - If you have not reached the departmental web operations lead by 5 P.M., call [phone] after 5 P.M. the day before your surgery. Please be aware that emergency situations arise, which may delay or change your surgical time. If this happens, we will notify you as soon as possible and regret any inconvenience. If you already have an Advance Directive, please fax a copy to [phone] or email to for it to be [...] your chart that day. documented in this encounterCleveland Clinic South Pointe Hospital08-16-2022 NoteSam[facility]08-16-2022 NoteSam[facility]08-16-2022 NoteSamar[facility] Hospital08-15-2022 NoteHNO ID: [id number] Author: Haylee Wilburn MD Service: ? Author Type: Physician Type: Progress Notes Filed: 10/21/2021 9:38 AM Note Text: [facility] Oncology Consult Note SERVICE DATE: October 20, 2021 CHIEF COMPLAINT: Yefri Yanez is a 56 year old male referred by Godfrey Ohara, regarding the management of metastatic renal cell ca. My findings and recommendations will be communicated back to Ms. Ohara via EMR. History was obtained from the [...] started treatment with cabo + nivo on [facility] on 08/08/2021. He has baseline HTN and developed worsening HTN after starting treatment. His cabo was held on 08/18/2021, resumed on 09/11/2021. The Nivo was held on 09/11/21 due to pneumonitis, and prednisone 60 mg daily was started and tapered off one week ago. Due to insurance change, he was taken off the trial and referred to [facility] to resume the treatment. He is [...] Negative. Respiratory: Negative. Cardiovascul (more content not included)...[facility]08-11-2022 Miscellaneous Notes* Telephone Encounter - Jayy Chantale Pss - 10/16/2021 8:22 AM EDT Tayler from [facility] is requesting a referral for Dr. Haylee Wilburn, to have patient scheduled for Wednesday, 10/20. Patient has been identified by name and birthdate. Duration of symptoms: N/A Requesting response back: Call [phone] if needed. Jayy Gandhibrook Pss October 16, 2021 documented in this encounterCleveland Clinic South Pointe Hospital08-09-2022 Miscellaneous Notes* Telephone Encounter - Rahul Knight RN - 10/14/2021 5:09 PM EDT Pt called back to discuss his questions regarding insurance coverage for [facility]. Pt did not answer, sovoice message left with instructions to call back. Also attempted to call pt's , also with no answer. Voice message left for spouse as well. Fazal Knight RN, BSN documented in this encounterCleveland Clinic South Pointe Hospital08-09-2022 Miscellaneous Notes* Telephone Encounter - Lisa Stark - 10/14/2021 2:46 PM EDT Yefri Yanez('s) spouse is calling Kenneth Chester MD today regarding Patient Question Patient has been identified by name and birthdate. Would like to know why Yefri wasn't approved for research study Duration of symptoms: N/A Requesting response back: call at home [phone] (home) Lisa Stark October 14, 2021 documented in this encounterCleveland Clinic South Pointe Hospital08-04-2022 NoteSamaritan Hospital08-04-2022 NoteSamaritan Hospital08-04-2022 Nurse Note* Ariadne Wood RN - 10/09/2021 10:22 AM EDT Additional intake questions: Has the patient had fever, nausea, vomiting, diarrhea, constipation, fatigue for > 1 week? Yes, fatigue Does the patient have a decreased appetite? No Does patient want to see a Campus Director? No (yes to any of above refer patient to schedulers for dietitian appointment) ) Does patient have any new or increased numbness or tingling of extremities? No Is patient interested in fertility information? No Does patient need any prescription refills? No Does patient have an advanced directive in place? No, Patient referred to Resource Center documented in this encounterCleveland Clinic South Pointe Hospital08-04-2022 History of Present illness Narrative* Godfrey Ohara APRN.BEATRICE - 10/09/2021 9:45 AM EDT Images from the original note were not included. [facility] [place] Progress Note Oncology Clinic Patient name: Yefri Yanez : 1965 Date of Service: October 09, 2021 SUBJECTIVE CHIEF COMPLAINT: mRCC CURRENT THERAPY: Started [...] Abs Lymph 1.00 - 4.00 k/uL 2.33 [place]% % 4.8 Abs [place] <0.87 k/uL 0.35 Eosin% % 0.4 Abs [...] Started treatment with cabo + nivo on [facility] on 08/08/2021. He has baseline HTN [...] out of network to receive care at [facility] - Patient is currently on warfarin for his atrial fibrillation, which is contraindicated per the clinical trial - Patient withdrew consent from [facility] and all follow up related activities [...] which included preparing to see the patient, [id number] patient care, completing clinical documentation, obtaining and/or [...] Oncology Advanced Practice Provider documented in this encounterCleveland Clinic South Pointe Hospital08-04-2022 History of Present illness Narrative* Rahul Knight RN - 10/09/2021 9:20 AM EDT IRB#: [id number], [facility]# [facility], Cyto-KIK; TRIAL (CYTO reductive surgery in [...] Anxiety r/t procedure 07/15/2021 08/06/21 Potassium Chloride* ([id number]) 20 MEQ PACKET Active 20 MEQ PO Hypokalemia 2019 07/22/2021 Take 1 tablet by mouth once daily. HTN 2018 07/22/2021 Take 1 capsule by mouth once daily. HTN 2018 07/22/2021 Take 1 tablet by mouth once daily. HTN 2018 08/19/2021 Take 1 tablet by mouth daily with [...] Fazal Knight RN, BSN documented in this encounterCleveland Clinic South Pointe Hospital07-25-2022 Miscellaneous Notes* Telephone Encounter - Sheela Chisholm RN - 09/29/2021 2:05 PM EDT Called patient for follow up from recent hospital discharge but no answer, message left on Active [employer] including resource nurse phone number. documented in this encounterCleveland Clinic South Pointe Hospital07-25-2022 NoteSamaritan Hospital07-25-2022 History of Present illness Narrative* Safia Carr [facility] - 09/29/2021 7:19 AM EDT TRANSITION CARE MANAGEMENT (TCM) HEART FAILURE PHARMACY CONTACT Provider Action/FYI: TCM Medication Reconciliation partially completed for patient. See medication list table below for details. Medications discussed per patient preference outlined in bold in table below. Sent [employer] secure chat to Andre Harden CNP: 1) [...] Nephro for plan on Prednisone taper. Called [facility] pharmacy and ensured that Rx for Torsemide [...] by outside PCP. Encouraged pt to use Good[facility] to improve affordability of meds and to find pharmacy that will take his insurance card. Pt to try [facility] of [facility]. Patient Workup: HF medication classes present on [...] oz) Patient was sent a message via [employer] including the link to the [facility] Heart Failure education video: Yes Initial contact with patient post discharge, spoke to patient and spouse, Miya,. Patient identified by name and . Summary: -Pt discharged from [facility] on 09/26/21. -Follow up appointment on 10/20/21. -Medication review done Partial medication review completed - per patient preference -Admitted for acute systolic heart failure Patient was contacted by telephone, identified for pharmacist care from discharge call list, and gave consent to manage medications related to transitional care management pursuant to the consult agreement with the [facility]. Patient Concerns: Review and discussion of medications [...] follow up appointment was requested with Dr Black as well. Transitions of Care Critical Issues: [...] subcutaneously q 12 HR. Re-initiated, Sent to [facility], Pt has filled and is taking as prescribed. PharmD called [facility] and verified that pt filled Rx for [...] tablets by mouth once daily. Sent to [facility], Pt has filled and is taking as prescribed. Pt's spouse will call Appraiser Art to determine the plan on this taper [...] tablets by mouth once daily. Sent to [facility], Pt has filled and is taking as [...] (40mg) by mouth once daily. Sent to [facility], Pt has filled and is taking as prescribed. PharmD called [facility] and verified that Torsemide Rx was filled as generic (pharmacy filled as generic) warfarin (COUMADIN) 5 mg tablet Take 1 tablet by mouth once daily. Sent to [facility], Pt has filled and is taking as prescribed. INR Date Value Ref Range Status 09/26/2021 1.3 0.9 - 1.3 Final Comment: Vitamin K Antagonist (VKA) Therapeutic Range: INR 2 to 3 (Target INR of 2.5) Note: For patients treated with VKA drugs, such as warfarin, the [place] [employer] 2012 Guideline recommends [...] JAMISON, et al. Chest 2012, 141:7S-47S Caitie RA, et al. [facility] 2017, 70: 252-289 Pt had appt with PCP to check INR on 09/29/21 (INR was 1.9) and will have f/u INR on 10/03/21 with PCP. Pt's spouse states that new dose is Warfarin 6mg daily. Preferred pharmacy: e- [id number] [place] [address] - [address] - [phone] [address] [facility] [address] [facility] [address] e- [id number] [place] [address] - [address] - [phone] [facility] [address] [address] [facility] [address] Estimated Creatinine Clearance: 104.4 mL/min (based on [...] Date(s) Administered COVID-19 vaccine, age 12+ yr ([facility] - PURPLE TOP) 05/25/2020 06/15/2020 01/21/2021 Influenza Seasonal Inj Age 3+ 12/06/2013 12/06/2013 Tdap (Age 7+) 07/25/2018 Additional follow up: Appointments for Next 60 Days Date Time Provider Location Dept Phone 10/06/2021 12:30 PM SURGICAL REGISTRATION 1 10/09/2021 8:45 AM LAB [facility] CA 1 Mn CA Bldg [phone] 10/09/2021 9:45 AM [facility] Mn CA Bldg [phone] 10/09/2021 9:45 AM GOD[facility] Mn CA Bldg [phone] 10/09/2021 10:15 AM CHAIR 8 /[facility] Mn CA Bldg [phone] 10/20/2021 11:30 AM LISA HANSEN Mn J Bldg [phone] 10/23/2021 8:40 AM MRI 6 RADIO MAIN Q (I-STAT/1.5T/3T) Mn Q Bldg [phone] 10/23/2021 9:[address] PREP MAIN CA Mn CA Bldg [phone] 10/23/2021 10:[address] MAIN CA Mn CA Bldg [phone] 10/23/2021 11:30 AM LAB [facility] CA 1 Mn CA Bldg [phone] 10/23/2021 1:30 PM KENNETH CHESTER Mn CA Bldg [phone] 10/23/2021 1:30 PM [facility] Mn CA Bldg [phone] 10/27/2021 11:30 AM PACC MAIN 2 Mn A Bldg [phone] 10/27/2021 12:30 PM ADMIT INTERVIEW A12 PSSC A dg 10/27/2021 1:00 PM LAB A15 MAIN Mn A Bldg [phone] 10/27/2021 1:30 PM EKG17 MAIN Mn A Bldg [phone] 11/01/2021 11:00 AM LAB COVID W[facility] [phone] Interventions Made: Patient education/Medication counseling, Adherence counseling and Medication access issue resolved Pharmacist Recommendations Made Lab request/Therapeutic drug monitoring Care Coordination: None at this time Time spent on patient: 60-75 minutes Safia Carr RPh September 29, 2021 7:19 AM documented in this encounterCleveland Clinic South Pointe Hospital07-22-2022 NoteSam[facility]07-22-2022 NoteSam[facility]07-21-2022 NoteSam[facility]07-20-2022 Note[facility]07-19-2022 Note [facility]07-[facility]-20[facility]07-18-2022 History of Present illness Narrative* Riccardo Hatfield PA-C - 09/22/2021 12:00 PM EDT Images from the original note were not included. [facility] [place] Miah Espitia Department of Cardiovascular Medicine SECTION OF CLINICAL CARDIOLOGY OUTPATIENT VISIT DATE September 22, 2021 OUTPATIENT VISIT TYPE ESTABLISHED PRIMARY CARE PHYSICIAN: Daksha Turner ([facility]) [address] [place] [address] REFERRING PHYSICIAN: Angela Khan [address] [facility] [address] CHIEF COMPLAINT: Established Pt Hospital Follow Up HISTORY OF PRESENT ILLNESS: Mr. Yanez is a 56 year old male who presents today for a cardiovascular medicine follow-up visit. Pt is an established pt of Dr. Black Pt has a past medical history of: 1. 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 [...] coordinated. CARDIOVASCULAR MEDICINE TESTING: EKG 09/22/21 Diagnostic LHC 08/05/21 Impression: Mild diffuse coronary artery disease [...] UNDETERMINED ABNORMAL ECG Confirmed by MARILIA LITTLE ([id number]), associate entertainment editor CORBIN CANADA ([id number]) on 09/03/2021 11:29:20 AM Complete Results Last CT Result Conclusion CT CHEST W IVCON PE Exam End: 09/02/2021 4:24 PM (Final result) Impression: IMPRESSION: 1. No CT evidence of pulmonary embolism. 2. Little change in CT appearance of the chest since the exam dated 08/17/2021. Again demonstrated is an expansile soft tissue mass of the right anterolateral chest wall consistent with osseous metastasis. Route Delivery Manager: DANITZA Transcribe Date/Time: Sep 02 2021 4:28P Dictated [...] He is an established pt of Dr. Black. History, physical, medications, labs, and tests as [...] trial --LISA cardioversion -Follow up with Dr. Black in 3 months as arranged with EKG and Labs prior. I spent 40 minutes in the visit, with more than 50% of the total [id number] time of the visit in counseling / coordination of care. CONTACT INFORMATION: Riccardo Hatfield PA-C September 22, 2021 documented in this encounterCleveland Clinic South Pointe Hospital07-15-2022 Miscellaneous Notes* Telephone Encounter - Rahul Knight RN - 09/19/2021 9:31 AM EDT IRB#: [id number], [facility]# [facility], Cyto-KIK; TRIAL (CYTO reductive surgery in Kidney cancer plus Immunotherapy (nivolumab) and targeted Kinase inhibition (cabozantinib) Pt called to report that he's been experiencing diarrhea (approx 6 episodes per day) accompanied bystomach pain, x 2 days. Instructed the pt to begin taking Imodium as needed, and to drink extra fluids to prevent dehydration. Pt verbalized understanding. Sent a follow up [employer] message to the pt.Also reached out to Dr. Chester to inform him of new symptoms, recommendations made to pt, and to inquire whether further action is needed. Will call pt back with any new instructions from Dr. Chester. Fazal Knight RN, BSN documented in this encounterCleveland Clinic South Pointe Hospital07-12-2022 Miscellaneous Notes* Telephone Encounter - Rahul Knight RN - 09/16/2021 2:53 PM EDT IRB#: [id number], [facility]# [facility], Cyto-KIK; TRIAL (CYTO reductive surgery in [...] symptoms. [place] Sharma, RN documented in this encounterCleveland Clinic South Pointe Hospital07-12-2022 Miscellaneous Notes* Telephone Encounter - Rahul Knight RN - 09/16/2021 9:45 AM EDT IRB#: [id number], [facility]# [facility], Cyto-KIK; TRIAL (CYTO reductive surgery in [...] Fazal Knight RN, BSN documented in this encounterCleveland Clinic South Pointe Hospital07-07-2022 NoteSam[facility]07-07-2022 NoteSam[facility]07-07-2022 History of Present illness Narrative* Kenneth Chester MD - 09/11/2021 2:03 PM EDT Images from the original note were not included. [facility] Progress Note Oncology Clinic Patient name: Yefri Yanez : 1965 Date of Service: September 11, 2021 Note copied from August 19, 2021 but boucher elements reviewed, confirmed, and/or updated by me (Kenneth Chester MD) on September 11, 2021. SUBJECTIVE CHIEF COMPLAINT: [facility] CURRENT THERAPY: Started cabo and nivo [...] Abs Lymph 1.00 - 4.00 k/uL 1.12 [place]% % 8.1 Abs [place] <0.87 k/uL 0.53 Eosin% % 0.5 Abs [...] Started treatment with cabo + nivo on [facility] on 08/08/2021. He has baseline HTN [...] note. Kenneth Chester MD documented in this encounterCleveland Clinic South Pointe Hospital07-07-2022 Nurse Note* Ariadne Wood RN - 09/11/2021 1:29 PM EDT Additional intake questions: Has the patient had fever, nausea, vomiting, diarrhea, constipation, fatigue for > 1 week? Yes, fatigue and SOB Does the patient have a decreased appetite? No Does patient want to see a Campus Director? No (yes to any of above refer patient to schedulers for dietitian appointment) ) Does patient have any new or increased numbness or tingling of extremities? No Is patient interested in fertility information? No Does patient need any prescription refills? No Does patient have an advanced directive in place? No, Patient referred to Resource Center documented in this encounterCleveland Clinic [facility]07-07-2022 History of Present illness Narrative* Godfrey Clayton RN - 09/11/2021 1:17 PM EDT IRB#: [id number], [facility]# [facility], Cyto-KIK; TRIAL (CYTO reductive surgery in [...] chloride (KLOR-CON) 20 mEq packet Potassium Chloride* ([id number]) 20 MEQ PACKET Active 20 MEQ PO [...] 09/11/2021 probably r/t cabo, not r/t nivo Action:hold cabo (08/18/2021), follow up with cardiology, monitor Outcome:changed [...] information Godfrey Clayton RN documented in this encounterCleveland Clinic South Pointe Hospital07-01-2022 Miscellaneous Notes* Telephone Encounter - Marysol Lane RN - 09/05/2021 4:07 PM EDT Called Yefri for more information regarding message received. Call back number given. * Telephone Encounter - Rakel Monge - 09/05/2021 2:16 PM EDT Yefri Yanez is calling Kenneth Chester MD today regarding Windows Vmware Administrator - Other States that when patient was in the hospital Dr Mitzi prescribed Lobenos and states that is very costly. Asking for a generic or something different that is affordable. Patient has been identified by name and birthdate. Duration of symptoms: N/A Requesting response back: call at home [phone] (home) [phone] (cell) Rakel Saleem September 05, 2021 documented in this encounterCleveland Clinic South Po[facility]06-29-2022 [facility] History of Present illness Narrative* Godfrey Clayton RN - 09/02/2021 4:55 PM EDT IRB#: [id number], [facility]# [facility] 1820, Cyto-KIK; TRIAL (CYTO reductive surgery in Kidney cancer plus Immunotherapy (nivolumab) and targeted Kinase inhibition (cabozantinib) [facility]. Patient endorses increased [...] r/t nivo, likelyr/t heart failure, Action:referral to [facility] clinic, CXR, monitor Outcome:Changed to Grade 3 [...] Outcome:ongoing Godfrey Clayton RN documented in this encounterCleveland Clinic South Pointe Hospital06-28-2022 Nurse Note* Warren Garvin LPN - 09/02/2021 4:41 PM EDT [facility] Emergency Response Team Date of the Event: September 02, 2021 Time of the Event:1641 Select Floor / Area: [facility] - Clinic Reason/Chief Complaint for Emergency Call (Check all that apply): Respiratory: New onset difficulty breathing History of Events Prior to DANIEL Activation and any treatment administered prior to DANIEL Team arrival? PT presented to [facility] clinic with SOB for last week. Pt [...] No Does patient want to see a Campus Director? No (yes to any of above refer patient to schedulers for dietitian appointment) ) Does patient have any new or increased numbness or tingling of extremities? No Is patient interested in fertility information? No Does patient need any prescription refills? No Does patient have an advanced directive in place? No, Patient refused referral to Social Work or Resource Center documented in this encounterCleveland Clinic South Pointe Hospital06-28-2022 [facility]06-28-2022 [facility]06-28-2022 History of Present illness Narrative* Sybil [...] 2021 TIME: 4:16 PM PAGER/CONTACT #: * TOÑO CelayaR) - 09/02/2021 3:00 PM EDT Radiology Service [...] 2021 TIME: 3:24 PM documented in this encounterCleveland Clinic South Pointe Hospital06-28-2022 History of Present illness Narrative* Daksha Melo PA-C - 09/02/2021 2:05 PM EDT [facility] ([facility]) REQUESTING PROVIDER: Godfrey Ohara CNP INDENTIFICATION: Yefri [...] No rash. LABS / TESTING while in [facility] clinic: Component Latest Ref Rng & Units [...] Abs Lymph 1.00 - 4.00 k/uL 1.42 [place]% % 6.4 Abs [place] <0.87 k/uL 0.42 Eosin% % 0.3 Abs [...] with elevated diastolic BP, follows with Dr. Blackbut missed the scheduled VV today. - radiology reported that during the IV contrast administration the line infiltrated in the right antecubital fossa and approximately 30-40ml of contrast was infused in the soft tissue with swelling,but no neurovascular changes. Daksha Melo PA-C Department of Hematology/Oncology September 02, 2021 2:05 PM documented in this encounterCleveland Clinic South Pointe Hospital06-28-2022 History of Present illness Narrative* Barber Mtz, RT(R) - 09/02/2021 1:40 PM EDT Radiology Service [...] PERIPHERAL IV DATA: Not applicable SIGNED BY: Barber Mtz RT(R) September 02, 2021 1:56 PM documented in this encounterCleveland Clinic South Pointe Hospital06-28-2022 [facility]06-27-2022 Miscellaneous Notes* Telephone Encounter - Adriana [...] the anaestheic including but not limited to NH, CVA, DVT, and PE, and the risks [...] proceed. Adriana Hodge MD documented in this encounterCleveland Clinic South Pointe Hospital06-22-2022 [facility]06-14-2022 [facility]06-14-2022 History of Present illness Narrative* Godfrey Clayton RN - 08/19/2021 2:17 PM EDT IRB#: [id number], [facility]# [facility] 1820, Cyto-KIK; TRIAL (CYTO reductive surgery in [...] chloride (KLOR-CON) 20 mEq packet Potassium Chloride* ([id number]) 20 MEQ PACKET Active 20 MEQ PO [...] clinical trial. Hypertension Grade 2 Start date: 2018 Action required: Medication and cardiology consult Hyperlipidemia [...] information Godfrey Clayton RN documented in this encounterCleveland Clinic South Pointe Hospital06-14-2022 [facility]06-14-2022 [facility]06-14-2022 Nurse Note* Ariadne Wood RN - 08/19/2021 11:33 AM EDT Reviewed and confirmed with patient that there were no changes in the the nursing assessment and vitals that were completed on August 19, 2021 during previous provider appointment. Ariadne Wood RN documented in this encounterCleveland Clinic South Pointe Hospital06-14-2022 History of Present illness Narrative* Godfrey Ohara APRN.CONCRETE MIXER OPERATOR HELPER - 08/19/2021 11:30 AM EDT Images from the original note were not included. [facility] Progress Note Oncology Clinic Patient name: Yefri Yanez : 1965 Date of Service: August 19, 2021 PCP: Jillian Maurer DO Referring Provider: Adriana Hodge MD. SUBJECTIVE CHIEF COMPLAINT: [facility] CURRENT THERAPY: Started cabo and nivo [...] Patient presents today for C1D15 visit of [facility] 1820. Since last visit his BP has been elevated, his cabo was stopped on 08/18/21 and he saw cardiology prior to his oncology appointment today. 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 He has baseline HTN [...] which included preparing to see the patient, [id number] patient care, completing clinical documentation, obtaining and/or [...] Ohara APRN.BEATRICE Research SCOTT documented in this encounterCleveland Clinic South Pointe Hospital06-14-2022 History of Present illness Narrative* Lalo Black MD - 08/19/2021 10:14 AM EDT Images from the original note were not included. [facility] [place] [facility] Department of Cardiovascular Medicine SECTION OF CLINICAL CARDIOLOGY OUTPATIENT VISIT DATE August 19, 2021 OUTPATIENT VISIT TYPE ESTABLISHED PRIMARY CARE PHYSICIAN: Daksha Turner ([facility]) [address] [place] [id number] REFERRING PHYSICIAN: Lalo Black [address] [facility] [id number] CHIEF COMPLAINT: No chief complaint on file. HISTORY OF PRESENT ILLNESS: Mr. Yanez is a 56 year old male who presents today for a cardiovascular medicine follow-up visit. Patient was last time seen in the clinic on July 31, 2021. Patient has a history of clear-cell renal carcinoma with metastases to the lung.Currently patient is enrolled in clinical trial, see [facility] 1820, with Josiah and gallito [planning C1 D1 on 07/24/2021]. Unfortunately, patient [...] fellow represents my interpretation of the study. Route Delivery Manager: PSCB Transcribe Date/Time: Aug 17 2021 7:12P Dictated [...] if obtained by others. CONTACT INFORMATION: Lalo Black M.D, PhD, FRCPC, FACC [employer] H[employer] at [facility] Associate Wind Site Manager Internal Medicine Residency Wind Site Managerslab inspector Education Internal Medicine Residency Wind Site Manager of Consult Service Wind Site Manager for Elective Students/Residents at [facility] Cardio-Oncology Center Miah Espitia Department of Cardiovascular Medicine Heart and Vascular [place] [facility] Desk [id number] [place] [address] Office Office Appointments: [phone] This medical note has been dictated using voice recognition system. Grammatical and/or syntax errors may be present and therefore the note should be interpreted accordingly. Should you have any questions and/or concerns, please do not hesitate to contact my office. documented in this encounterCleveland Clinic South Pointe Hospital06-13-2022 Miscellaneous Notes* Telephone Encounter - Radha Ceballos RN - 08/18/2021 2:51 PM EDT Good Afternoon Mr. Yanez, Thank you for sending us in your blood pressure readings. Dr. Black will address these readings tomorrow at your appointment. Looking forward to seeing you then! I hope you have a wonderful day! JOHN Garcia documented in this encounterCleveland Clinic South Pointe Hospital06-13-2022 Miscellaneous Notes* Telephone Encounter - Godfrey Clayton RN - 08/18/2021 10:25 AM EDT IRB#: [id number][facility] 1820, Cyto-KIK; TRIAL (CYTO reductive surgery in [...] Outcome:Resolved Godfrey Clayton RN documented in this encounterCleveland Clinic South Pointe Hospital06-13-2022 Miscellaneous Notes* Telephone Encounter - Godfrey Ohara APRN.CNP - 08/18/2021 9:43 AM EDT This encounter was opened in error. @[email or web address]@ documented in this encounterCleveland Clinic South Pointe Hospital06-12-2022 [facility]06-12-2022 [facility]06-08-2022 Miscellaneous Notes * Telephone Encounter - Godfrey Clayton RN - 08/13/2021 2:55 PM EDT IRB#: [id number][facility], Cyto-KIK; TRIAL (CYTO reductive surgery in Kidney cancer plus Immunotherapy (nivolumab) and targeted Kinase inhibition (cabozantinib) Called patient to review recent blood pressure readings. Patient stated his blood pressure yesterday and today have been between 130s-140s/80s. Instructed patient to still follow up with his biscuit machine operator with previous readings. Patient states of feeling well with no symptoms. Instructed patient to call with any new or worsening symptoms. Patient verbalized understanding. Godfrey Clayton RN documented in this encounterCleveland Clinic South Po[facility] Hospital06-07-2022 Miscellaneous Notes* Telephone Encounter - Godfrey Clayton RN - 08/12/2021 2:40 PM EDT IRB#: [id number], [facility]# [facility] 1820, Cyto-KIK; TRIAL (CYTO reductive surgery in Kidney cancer plus Immunotherapy (nivolumab) and targeted Kinase inhibition (cabozantinib) Patient called to inform nurse of recent blood pressure readings. Patient reported that his blood pressure has been running between 140-150s/100s since last 08/09/2021. After consulting , instructed patient to follow up with his biscuit machine operator to adjust blood pressure medications. This nurse updated biscuit machine operator, Dr. lBack. Patient denied having any chest pain, shortness of breath, dizziness, or heart palpations. Instructed patient to be evaluated by local ER if blood pressure continues to stay elevated or becomes symptomatic. Instructed patient to call for any new or worsening symptoms. Patient verbalized understanding. Godfrey Clayton RN documented in this encounterCleveland Clinic South Pointe Hospital06-07-2022 Miscellaneous Notes* Telephone Encounter - Nettie Benjamin RN - 08/12/2021 1:28 PM EDT Hi Mr. Yanez, I received your message, how have your blood pressures been running at home? Are having any symptoms such as chest pain, shortness of breath, lightheaded, or dizziness? Please send over some blood pressures samples for Dr. Black to review and see if adjustment is needed. If blood pressure continues to be elevated or any symptoms listed above occur and prolong please beevaluated in your local emergency department. Please let me know! JOHN Sheffield * Telephone Encounter - Wojciech Menendez - 08/12/2021 1:24 PM EDT August 12, 2021 Patient Contact Number: [phone] Patient last seen within the last year: Yes Date of last office visit: 07/31/2021 Reason For Call: Blood Pressure Changes -pt called in to report that BP was high at 150-140/100+ range. He was told by his PCP office that he may need an adjustment on his blood pressure medications. Physician: Lalo Black MD Patient was informed that non-urgent calls may be returned within the next three business days. Yes Wojciech Menendez documented in this encounterCleveland Clinic South Pointe Hospital06-06-2022 Miscellaneous Notes* Telephone Encounter - Hermila Ruiz RN - 08/11/2021 12:32 PM EDT IRB#: [id number], [facility]# [facility] 1820, Cyto-KIK; TRIAL (CYTO reductive surgery in Kidney cancer plus Immunotherapy (nivolumab) and targeted Kinase inhibition (cabozantinib) Called pt again to follow up. No answer. Left VM with contact info. Hermila Ruiz RN documented in this encounterCleveland Clinic South Pointe Hospital06-06-2022 Miscellaneous Notes* Telephone Encounter - Hermila Ruiz RN - 08/11/2021 10:09 AM EDT IRB#: [id number], [facility]# [facility] 1820, Cyto-KIK; TRIAL (CYTO reductive surgery in Kidney cancer plus Immunotherapy (nivolumab) and targeted Kinase inhibition (cabozantinib) Cycle: 1 Week: 1 Phase: 2 Cohort: 2 Called pt to follow up on start of treatment with clinical trial. No answer. Left VM with contact info. Hermila Ruiz RN documented in this encounterCleveland Clinic South Pointe Hospital06-03-2022 [facility]06-03-2022 [facility]06-03-[facility]06-03-[facility] History of Present illness Narrative* Godfrey Ohara APRN.CONCRETE MIXER OPERATOR HELPER - 08/08/2021 9:45 AM EDT Images from the original note were not included. [facility] Progress Note Oncology Clinic Patient name: Yefri Yanez : 1965 Date of Service: August 08, 2021 PCP: Jillian Maurer DO Referring Provider: Adriana Hodge MD. SUBJECTIVE CHIEF COMPLAINT: [facility] HPI: This is a 56 year [...] Patient presents today for C1D1 visit of [facility] 1820 with cabo and nivo. 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 Alcohol: Occasional Tobacco: Active cigar smoker MEDICATIONS: [...] Abs Lymph 1.00 - 4.00 k/uL 1.61 [place]% % 6.6 Abs [place] <0.87 k/uL 0.40 Eosin% % 0.7 Abs [...] start treatment with cabo + nivo on [facility] 182 on 07/24/2021 - Start C1D1 of cabo + nivo today (08/08/2021) per [facility] 1819 - RTC per protocol HTN and Heart [...] which included preparing to see the patient, [id number] patient care, completing clinical documentation, obtaining and/or [...] Ohara APRN.BEATRICE Research SCOTT documented in this encounterCleveland Clinic South Pointe Hospital06-03-2022 History of Present illness Narrative* Godfrey Clayton RN - 08/08/2021 9:45 AM EDT IRB#: [id number], [facility]# [facility] 1820, Cyto-KIK; TRIAL (CYTO reductive surgery in [...] chloride (KLOR-CON) 20 mEq packet Potassium Chloride* ([id number]) 20 MEQ PACKET Active 20 MEQ PO [...] Navigator Godfrey Clayton RN documented in this encounterCleveland Clinic South Pointe Hospital06-03-2022 Nurse Note* Ariadne Wood RN - 08/08/2021 9:20 AM EDT Additional intake questions: Has the patient had fever, nausea, vomiting, diarrhea, constipation, fatigue for > 1 week? No Does the patient have a decreased appetite? No Does patient want to see a Campus Director? No (yes to any of above refer patient to schedulers for dietitian appointment) ) Does patient have any new or increased numbness or tingling of extremities? No Is patient interested in fertility information? No Does patient need any prescription refills? No Does patient have an advanced directive in place? No, Patient referred to Resource Center documented in this encounterCleveland Clinic South Pointe Hospital06-01-2022 [facility]06-01-2022 History of Present illness Narrative* Gofdrey Ohara APRN.CNP - 08/06/2021 3:37 PM EDT RECIST TUMOR MEASUREMENTS IRB #: [id number] Image Modality: CT Image Date: CT Chest from 07/21/2021. CT A/P from 08/06/2021 Date of Baseline Scan: CT Chest from 07/21/2021. CT A/P from 08/06/2021 Date of Comparison Scan: NA Research Nurse/Pager: Godfrey Ohara APRN.CNP [phone] Baseline Measurement Target Lesion Site Measurements: Baseline [...] Dr. Kenneth Ohara APRN.CNP documented in this encounterCleveland Clinic South Pointe Hospital06-01-2022 [facility]06-01-2022 [facility]06-01-2022 [facility]06-01-2022 [facility]06-01-2022 [facility] History of Present illness Narrative* Godfrey Ohara APRN.CONCRETE MIXER OPERATOR HELPER - 08/06/2021 9:45 AM EDT IRB#: [id number], [facility], Cyto-KIK; TRIAL (CYTO reductive surgery in Kidney cancer plus Immunotherapy (nivolumab) and targeted Kinase inhibition (cabozantinib) Phase: 2 Cohort: 2 Pt presents for Screening Visit of IRB# [id number] . Informed Consent signed on 07/15/2021, prior to anystudy related procedures being performed that are not SOC. PE completed by Godfrey Ohara APRN.CONCRETE MIXER OPERATOR HELPER. Was PE completed by a Fellow No [...] chloride (KLOR-CON) 20 mEq packet Potassium Chloride* ([id number]) 20 MEQ PACKET Active 20 MEQ PO Hypokalemia 2018 amLODIPine (NORVASC) 5 mg tablet Take 1 tablet by mouth once daily. HTN 2018 lovastatin (MEVACOR) 20 mg tablet Take 1 tablet by mouth daily with dinner. HLD 2019 tiZANidine (ZANAFLEX) 4 mg tablet Take 1 tablet by mouth every 8 hours as needed. Back pain MULTIVITAMIN TAB Take one(1) tablet daily. General Health 2018 Carvedilol 12.5 mg tablet Take 1 tablet [...] RTC on 08/07/2021 for Day 1 of [facility] 1820 Study. Patient expresses understanding to call with any questions or concerns in the interim and understanding of all instructions provided. Patient confirmed to have contact information for Research Nurse and Dr. Zhao, along with the 24 hour On- Call number for the On-Call Oncology Fellow ([phone]). Godfrey Ohara APRN.CNP * Godfrey Ohara APRN.CNP - 08/06/2021 9:45 AM EDT Images from the original note were not included. [facility] Progress Note Oncology Clinic Patient name: Yefri Yanez : 1965 Date of Service: August 06, 2021 PCP: Jillian Maurer DO Referring Provider: Adriana Hodge MD. SUBJECTIVE CHIEF COMPLAINT: [facility] HPI: This is a 56 year [...] presents today for repeat screening visit of [facility] 1820 with cabo and nivo. 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 He presents today for [facility] . - RTC on C1D1 (08/08/21) [...] which included preparing to see the patient, [id number] patient care, completing clinical documentation, obtaining and/or [...] today's encounter, August 06, 2021) Godfrey Ohara APRN.CNP Research SCOTT documented in this encounterCleveland Clinic South Pointe Hospital06-01-2022 History of Present illness Narrative* Godfrey Clayton RN - 08/06/2021 9:35 AM EDT IRB#: [id number], [facility], Cyto-KIK; TRIAL (CYTO reductive surgery in [...] note. Godfrey Clayton RN documented in this encounterCleveland Clinic South Pointe Hospital05-29-2022 Miscellaneous Notes* Telephone Encounter - Ramona Toney RN - 08/03/2021 11:17 AM EDT CARDIOVASCULAR [...] In Department of CARDIOLOGY. documented in this encounterCleveland Clinic South Pointe Hospital05-26-2022 [facility]05-26-2022 History of Present illness Narrative* Lalo Black MD - 07/31/2021 1:20 PM EDT Images from the original note were not included. [facility] [place] [facility] Esp[facility] Department of Cardiovascular Medicine SECTION OF CLINICAL CARDIOLOGY OUTPATIENT VISIT DATE July 31, 2021 OUTPATIENT VISIT TYPE ESTABLISHED PRIMARY CARE PHYSICIAN: Daksha Turner ([facility]) [address] [place] [address] REFERRING PHYSICIAN: Lalo Black [address] [facility] [address] CHIEF COMPLAINT: No chief complaint on file. HISTORY OF PRESENT ILLNESS: Mr. Yanez is a 56 year old male who presents today for a cardiovascular medicine follow-up visit. The first time he spoke with the patient was back on July 22, 2021. Patient has oncological and pathologically confirmed clear-cell renal carcinoma. Currently patient is enrolled in clinical trial, see [facility] 182, with Mati [planning C1 D1 on [...] that he is at least operating at [employer] 2 in terms of functional [...] short axis) * Boucher Images stored in [employer] Chest: * Lesion a - Bone, 9.4 cm x 5.7 cm mass in the anterolateral right chest wall arising from the right sixth rib, larger since the prior chest CT from 06/19/2021, (Series 4, Image 102) NON-TARGET LESIONS: No Route Delivery Manager: DANITZA Transcribe Date/Time: Jul 21 2021 10:55A Dictated by : DANGELO LEVIN MD This examination was interpreted and the report reviewed and electronically signed by: DANGELO LVEIN MD on Jul 21 2021 11:29AM EST [...] forward. At this time he is at [employer] class II in functional status [...] if obtained by others. CONTACT INFORMATION: Lalo Black M.D, PhD, FRCPC, FACC [employer] H[employer] at [facility] Associate Wind Site Manager Internal Medicine Residency Wind Site Managerslab inspector Education Internal Medicine Residency Wind Site Manager of Consult Service Cardio-Oncology [facility]ia Department of Cardiovascular Medicine Heart and Vascular [place] [facility] Desk [id number] [place] [address] Office Office Appointments: [phone] This medical note has been dictated using voice recognition system. Grammatical and/or syntax errors may be present and therefore the note should be interpreted accordingly. Should you have any questions and/or concerns, please do not hesitate to contact my office. documented in this encounterCleveland Clinic South Pointe Hospital05-25-2022 Miscellaneous Notes* Telephone Encounter - Tayler [...] In Department of CARDIOLOGY. documented in this encounterCleveland Clinic South Pointe Hospital05-24-2022 Miscellaneous Notes* Telephone Encounter - Godfrey Clayton RN - 07/29/2021 4:39 PM EDT IRB#: [id number], [facility]# [facility] 1820, Cyto-KIK; TRIAL (CYTO reductive surgery in [...] understanding. Godfrey Clayton RN documented in this encounterCleveland Clinic South Pointe Hospital05-20-2022 Miscellaneous Notes* Telephone Encounter - Godfrey Clayton RN - 07/25/2021 2:58 PM EDT IRB#: [id number], [facility]# [facility] 1820, Cyto-KIK; TRIAL (CYTO reductive surgery in [...] understanding. Godfrey Clayton RN documented in this encounterCleveland Clinic South Pointe Hospital05-20-2022 [facility]05-20-2022 History of Present illness Narrative* Rahul Bennett [facility] - 07/25/2021 10:36 AM EDTSummary: RECIST 1.1 Abstract for Addendum RESEARCH IRB #: [id number] TUMOR METRICS: RECIST 1.1 Baseline Measurement Research Nurse/Pager: America Clayton [phone] Date of Baseline Scan: 06/27/2021 Date of Comparison Scan: NA Addendum Please see Abstract in EPIC Dated: NA Rahul Bennett [id number] documented in this encounterCleveland Clinic [facility]05-19-2022 Instructions* Patient Instructions* Godfrey Ohara APRN.CNP - 07/24/2021 3:33 PM EDT Please schedule as a first time treatment visit type. documented in this encounterCleveland Clinic South Pointe [facility]05-19-2022 Miscellaneous Notes* Telephone Encounter - Godfrey Ohara APRN.CNP - 07/24/2021 3:29 PM EDT Called and spoke with patient. Nivolumab has been approved. Awaiting approval and delivery of cabo per SOC. Will schedule him to see myself on 08/01/2021 for C1D1 of cabo and nivo. Godfrey Ohara APRN.CNP Research SCOTT documented in this encounterCleveland Clinic South Pointe [facility]05-19-2022 [facility]05-19-[facility]22 [facility] History of Present illness Narrative* Godfrey Ohara APRN.CNP - 07/24/2021 9:56 AM EDT Images from the original note were not included. [facility] Progress Note Oncology Clinic Patient name: Yefri Yanez : 1965 Date of Service: July 24, 2021 PCP: Jillian Maurer DO Referring Provider: Adriana Hodge MD. SUBJECTIVE CHIEF COMPLAINT: [facility] HPI: This is a 56 year [...] HISTORY: Patient presents today for C1D1 of [facility] 1820 with cabo and nivo. 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 However, [...] which included preparing to see the patient, [id number] patient care, completing clinical documentation, obtaining and/or [...] Ohara APRN.BEATRICE Research SCOTT documented in this encounterCleveland Clinic South Po[facility]05-19-2022 History of Present illness Narrative* Godfrey Clayton RN - 07/24/2021 9:45 AM EDT IRB#: [id number], [facility]# [facility] 182, Cyto-KIK; TRIAL (CYTO reductive surgery in Kidney [...] chloride (KLOR-CON) 20 mEq packet Potassium Chloride* ([id number]) 20 MEQ PACKET Active 20 MEQ PO Hypokalemia 2018 amLODIPine (NORVASC) 5 mg tablet Take 1 tablet by mouth once daily. HTN 2017 lovastatin (MEVACOR) 20 mg tablet Take 1 [...] Navigator Godfrey Clayton RN documented in this encounterCleveland Clinic South Pointe [facility]05-18-2022 Miscellaneous Notes* Telephone Encounter - Godfrey [...] understanding. Godfrey Clayton RN documented in this encounterCleveland Clinic South [facility]05-17-2022 [facility] History of Present illness Narrative* Lalo Black MD - 07/22/2021 1:51 PM EDT Heart, Vascular & Thoracic [place] Department of Cardiovascular Medicine TELEPHONE VISIT PROGRESS [...] patient is enrolling in a clinical trial, [facility] 1820, with cabo and nivo (planning C1D1 on 07/24/21). For his screening work up he completed an echo which showed new heart failure with left ventricular hypertrophy and mitral regurgitation. Patient reports that he never had any issues with his heart prior to the presentation. His previousmedical history significant for dyslipidemia, hypertension as well as NIMCO using CPAP. More recently, he has been [...] week Total Time Spent: 21-30 minutes Lalo Black MD documented in this encounterCleveland Clinic South Po[facility]05-16-2022 Miscellaneous Notes* Telephone Encounter - Zaynab [...] information for future reference. documented in this encounterCleveland Clinic South Pointe [facility]05-16-2022 [facility]2022 [facility] History of Present illness Narrative* RT Mendez(R) - 07/21/2021 11:30 AM EDT Radiology Service [...] 2021 TIME: 9:09 AM documented in this encounterCleveland Clinic [facility]05-16-2022 [facility] History of Present illness Narrative* Liliam [...] 2021 TIME: 9:05 AM documented in this encounterCleveland Clinic South [facility]05-16-2022 History of Present illness Narrative* Godfrey [...] 146/91 PULSE OX 99 BODY MASS INDEX Godfrey Clayton RN documented in this encounterCleveland Clinic South [facility]05-13-2022 [facility]05-13-2022 History of Present illness Narrative* Godfrey Ohara APRN.BEATRICE - 07/18/2021 12:46 PM EDT IRB#: [id number], [facility] Phase: II Cohort: 2 Encounter for Eligibility of IRB# [id number] . Informed Consent signed on 07/14/2021, prior to any study related procedures being performed that are not SOC. PE completed by Godfrey Ohara APRN.CONCRETE MIXER OPERATOR HELPER. Was PE completed by a Fellow No [...] meets all criteria, confirmed by Godfrey Ohara APRN.BEATRICE on July 21, 2021. 1. Written informed [...] in the study, confirmed by Godfrey Ohara APRN.CNP on July 21, 2021: 1. Patients who [...] Cardiovascular disorders including: Congestive heart failure (CHF): [place] Heart Association (NYHA) Class III (moderate) or Class IV (severe) at the time of screening. Patient denied on 07/15/2021. Not found on examination by KEYUR Mann.CONCRETE MIXER OPERATOR HELPER. Concurrent uncontrolled hypertension defined as sustained BP [...] on 07/15/2021 24. 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 No metastases [...] chloride (KLOR-CON) 20 mEq packet Potassium Chloride* ([id number]) 20 MEQ PACKET Active 20 MEQ PO [...] tablet by mouth daily with dinner. HLD 2020 tiZANidine (ZANAFLEX) 4 mg tablet Take 1 [...] RTC on 07/24/2021 for Day 1 of [facility] 1820 Study. Godfrey Ohara APRN.BEATRICE documented in this encounterCleveland Clinic South Po[facility]05-10-2022 [facility]05-10-2022 [facility]-10-2022 [facility]-10-2022 [facility] History of Present illness Narrative* Rahul [...] as discussed with Dr. Kenneth Chester MD [place]-- . All study related questions have been addressed or answered at this time. Contact information for research nurse and HemOnc fellow on-call for after hours contact given to patient. Patient verbalizes understanding of all aforementioned information and voluntarily agrees to proceed with this clinical trial. Consent willingly signed by patient and consenting nurse. Patient given copy of signed informed consent. Time: 1530 Godfrey Ohara APRN, [place] Devine, RN * Godfrey Ohara APRN.CNP - 07/14/2021 3:55 PM EDT Saw patient today for RN consent visit for [facility] 1820. Wrote for Ativan 1 mg as needed prior to MRI Kidney and MRI brain. Godfrey Ohara APRN.BEATRICE Research SCOTT documented in this encounterCleveland Clinic South Po[facility]05-09-2022 Nurse Note* Ariadne Wood RN - 07/14/2021 2:41 PM EDT Additional intake questions: Has the patient had fever, nausea, vomiting, diarrhea, constipation, fatigue for > 1 week? Yes, fatigue Does the patient have a decreased appetite? No Does patient want to see a Campus Director? No (yes to any of above refer patient to schedulers for dietitian appointment) ) Does patient have any new or increased numbness or tingling of extremities? No Is patient interested in fertility information? No Does patient need any prescription refills? No Does patient have an advanced directive in place? No, Patient referred to Resource Center documented in this [facility]05-06-2022 Miscellaneous Notes* Telephone Encounter - Godfrey Clayton RN - 07/11/2021 4:28 PM EDT Cyto-KIK; TRIAL (CYTO reductive surgery in Kidney cancer plus Immunotherapy (nivolumab) and targeted Kinase inhibition (cabozantinib) This nurse called spouse, Primo, to inform her of patients upcoming appointment date, time and location. Encouraged spouse to call with any questions or concerns. Spouse verbalized understanding. Godfrey Clayton RN documented in this encounterCleveland Clinic [facility]05-06-2022 Miscellaneous Notes* Telephone Encounter - Godfrey [...] understanding. Godfrey Clayton RN documented in this encounterCleveland Clinic [facility]05-03-2022 [facility]05-03-2022 History of Present illness Narrative* Godfrey Clayton RN - 07/08/2021 3:51 PM EDT Informed Consent Presentation IRB# [id number] Title: [facility] 1820, Cyto-KIK; TRIAL (CYTO reductive surgery in Kidney cancer plus Immunotherapy (nivolumab) and targeted Kinase inhibition (cabozantinib) Consent expiration date 01/10/2022 Spoke with patient at the request of Dr. Kenneth Chester MD, MA-- . Treatment plan, including all testing, potential [...] 1500 Godfrey Clayton RN documented in this encounterCleveland Clinic [facility]05-02-2022 Miscellaneous Notes* Telephone Encounter - Godfrey [...] understanding. Godfrey Clayton RN documented in this encounterCleveland Clinic South Pointe Hospital04-27-2022 [facility]04-27-2022 History of Present illness Narrative* Kenneth Chester MD - 07/02/2021 12:00 PM EDT Images from the original note were not included. 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 Kenneth Chester MD MA Associate Staff [facility] July 02, 2021 CC: Adriana Hodge MD documented in this encounterCleveland Clinic South Pointe Hospital04-27-2022 Nurse Note* Ariadne Wood RN - 07/02/2021 11:52 AM EDT Additional intake questions: Has the patient had fever, nausea, vomiting, diarrhea, constipation, fatigue for > 1 week? No Does the patient have a decreased appetite? No Does patient want to see a Campus Director? No (yes to any of above refer patient to schedulers for dietitian appointment) ) Does patient have any new or increased numbness or tingling of extremities? No Is patient interested in fertility information? No Does patient need any prescription refills? No Does patient have an advanced directive in place? No, Patient referred to Resource Center documented in this encounterCleveland Clinic [facility]04-26-2022 [facility]04-25-2022 [facility]04-25-2022 History of Present illness Narrative* RT [...] 725 PATIENT DISCHARGED TO: Ambulatory patient, left [place] department area. A Diagnostic radioactive procedure has taken place, with no further precautions necessary other than routine body substance precautions. More information regarding radiation safety can be found usingthis link: [email or web address] SIGNATURE: STEPHANIE Cochran) PATIENT NAME: Yefri Yanez DATE: June 30, 2021 TIME: 7:45 AM PAGER/CONTACT #: [phone] documented in this encounterCleveland Clinic South [facility]04-22-2022 [facility]04-22-2022 History of Present illness Narrative* STEPHANIE Dugan) - 06/27/2021 3:00 PM EDT Radiology Service [...] 2021 TIME: 1:57 PM documented in this encounterCleveland Clinic South [facility]04-19-2022 Miscellaneous Notes* Telephone Encounter - John [...] for this procedure: low risk. Reference from F Vaccine Manager: [email or web address] [email or web address] SIGNATURE: John Gtz MD DATE: June 24, 2021 TIME: 8:32 AM * Telephone Encounter - Yandy Muñoz RN - 06/23/2021 4:44 PM EDT BX. COORDINATOR INFORMATION LAB RESULTS: No results found for: INR No results found for: APTT Platelet Count (k/uL) Date Value 06/20/2021 268 11/06/2019 288 Current Outpatient Medications Medication Sig potassium chloride (KLOR-CON) 20 mEq packet Potassium Chloride* ([id number]) 20 MEQ PACKET Active 20 MEQ PO [...] 4:44 PM * Telephone Encounter - Irma Evans - 06/23/2021 4:26 PM EDT RADIOLOGY CALL CENTER INTAKE BOX CAR WASHER: IRMA EVANS EXT: [id number] DATE: 06/23/2021 TIME: 4:27PM TRACKING #. [id number] REQUESTING PERSON: LILIAM PHONE/PAGER: [phone] REQUESTING STAFF: Adriana Hodge MD PHONE/PAGER: [phone] SPECIFICS OF THE REQUEST: (Please be as [...] for pathology (For example: send for ER, ME, HER2/silas or possible lymphoma send in RPMI [...] EVALUATE APPROPRIATENESS/FEASIBILITY OF THE REQUEST) IMAGING: OUTSIDE [facility] Films: Where is study now: UPLOADED IN PATIENTS CHART (If the imaging was obtained outside the [facility] system, then it needs to be submitted for review prior to approval.) Note to all persons requesting biopsies: All biopsy requests will be scheduled as quickly as possible, based on the clinical urgency, availability of appointment times, the need to hold anti-thrombolytic therapy (aspirin, blood thinners) and the patient s schedule, including the need for an available feeder driver. If a percutaneous biopsy or drainage is not felt to be safe or an alternative method for establishing a diagnosis is possible, this will be discussed directly with the requesting physician. 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[employer] [facility] Residence:[place] Review of Systems: No CP, No SOB, no CVA, no TIA, No NH No claudication Skin: Rash: denies Lump or mass: denies HEENT: Problems with hearing: denies Double vision or blurred vision: denies Difficulty swallowing: denies Neck: Mass or LN enlargement: denies Pain: denies Chest: SOB: denies Cough: denies Coughing blood: denies Hx pneumonia: denies CVS: Dyspnea on exertion: denies Chest pain: denies Palpitations: denies Hx heart disease, valvular disease: denies Hx NH: denies GI: Nausea or vomiting: denies Abd [...] which included preparing to see the patient, [id number] patient care, completing clinical documentation and counseling [...] Scribe Attestation: By signing my name below, Renan Nash, attest that this documentation has been prepared under the direction and in the presence of Dr. Adriana Hodge MD. Electronically Signed:gabrielle Rader, June 23, 2021 9:56 AM Provider Attestation: Adriana Nash MD, personally performed the services described in this documentation. All medical record entries made by the nicoleibtheodora were at my direction and in my presence. I have reviewed thechart and discharge instructions (if applicable) and agree that the record reflects my personal perf ormance and is accurate and complete. Adriana Hodge MD June 23, 2021 11:36 AM documented in this encounterCleveland Clinic South [facility]04-18-2022 Miscellaneous Notes* Telephone Encounter - Dawit Urbina MD - 06/23/2021 8:48 AM EDT Spoke with Patient ID by Relayed to patient CBC and CMP without concern. Patient aware to follow up with Dr. Hodge at 11:00 AM today. Dawit Urbina MD documented in this encounterCleveland Clinic [facility] Hospital04-15-2022 [facility]04-25-2005 History of Past illness Narrative* Problem Noted Date Resolved Date Essential hypertension, benign 06/30/2004 0 03/12/2008 ROUTINE MEDICAL EXAM 06/30/2004 11/26/2014 CHEST PAIN NOS 06/30/2004 11/26/2014 documented as of this encounter (statuses as of 06/23/2021) [address]25-2005 History of Past illness Narrative* Problem Noted Date Resolved Date Essential hypertension, benign 06/30/2004 0 03/12/2008 ROUTINE MEDICAL EXAM 06/30/2004 11/26/2014 CHEST PAIN NOS 06/30/2004 11/26/2014 documented as of this encounter (statuses as of 06/23/2021) [address]25-2005 History of Past illness Narrative* Problem Noted Date Resolved Date Essential hypertension, benign 06/30/2004 0 03/12/2008 ROUTINE MEDICAL EXAM 06/30/2004 11/26/2014 CHEST PAIN NOS 06/30/2004 11/26/2014 documented as of this encounter (statuses as of 06/24/2021) [facility] History of Past illness Narrative* Problem Noted Date Resolved Date Essential hypertension, benign 06/30/2004 0 03/12/2008 ROUTINE MEDICAL EXAM 06/30/2004 11/26/2014 CHEST PAIN NOS 06/30/2004 11/26/2014 documented as of this encounter (statuses as of 06/26/2021) [address]25-2005 History of Past illness Narrative* Problem Noted Date Resolved Date Essential hypertension, benign 06/30/2004 0 03/12/2008 ROUTINE MEDICAL EXAM 06/30/2004 11/26/2014 CHEST PAIN NOS 06/30/2004 11/26/2014 documented as of this encounter (statuses as of 06/28/2021) [place] [id number] History of Past illness Narrative* Problem Noted Date Resolved Date Essential hypertension, benign 06/30/2004 0 03/12/2008 ROUTINE MEDICAL EXAM 06/30/2004 11/26/2014 CHEST PAIN NOS 06/30/2004 11/26/2014 documented as of this encounter (statuses as of 06/28/2021) [address] History of Past illness Narrative* Problem Noted Date Resolved Date Essential hypertension, benign 06/30/2004 0 03/12/2008 ROUTINE MEDICAL EXAM 06/30/2004 11/26/2014 CHEST PAIN NOS 06/30/2004 11/26/2014 documented as of this encounter (statuses as of 07/01/2021) [address] History of Past illness Narrative* Problem Noted Date Resolved Date Essential hypertension, benign 06/30/2004 0 03/12/2008 ROUTINE MEDICAL EXAM 06/30/2004 11/26/2014 CHEST PAIN NOS 06/30/2004 11/26/2014 documented as of this encounter (statuses as of 07/01/2021) [address] History of Past illness Narrative* Problem Noted Date Resolved Date Essential hypertension, benign 06/30/2004 0 03/12/2008 ROUTINE MEDICAL EXAM 06/30/2004 11/26/2014 CHEST PAIN NOS 06/30/2004 11/26/2014 documented as of this encounter (statuses as of 07/04/2021) [address] History of Past illness Narrative* Problem Noted Date Resolved Date Essential hypertension, benign 06/30/2004 0 03/12/2008 ROUTINE MEDICAL EXAM 06/30/2004 11/26/2014 CHEST PAIN NOS 06/30/2004 11/26/2014 documented as of this encounter (statuses as of 07/07/2021) [address] History of Past illness Narrative* Problem Noted Date Resolved Date Essential hypertension, benign 06/30/2004 0 03/12/2008 ROUTINE MEDICAL EXAM 06/30/2004 11/26/2014 CHEST PAIN NOS 06/30/2004 11/26/2014 documented as of this encounter (statuses as of 07/08/2021) [address] History of Past illness Narrative* Problem Noted Date Resolved Date Essential hypertension, benign 06/30/2004 0 03/12/2008 ROUTINE MEDICAL EXAM 06/30/2004 11/26/2014 CHEST PAIN NOS 06/30/2004 11/26/2014 documented as of this encounter (statuses as of 07/11/2021) [address] History of Past illness Narrative* Problem Noted Date Resolved Date Essential hypertension, benign 06/30/2004 0 03/12/2008 ROUTINE MEDICAL EXAM 06/30/2004 11/26/2014 CHEST PAIN NOS 06/30/2004 11/26/2014 documented as of this encounter (statuses as of 07/11/2021) [address] History of Past illness Narrative* Problem Noted Date Resolved Date Essential hypertension, benign 06/30/2004 0 03/12/2008 ROUTINE MEDICAL EXAM 06/30/2004 11/26/2014 CHEST PAIN NOS 06/30/2004 11/26/2014 documented as of this encounter (statuses as of 07/11/2021) [address] History of Past illness Narrative* Problem Noted Date Resolved Date Essential hypertension, benign 06/30/2004 0 03/12/2008 ROUTINE MEDICAL EXAM 06/30/2004 11/26/2014 CHEST PAIN NOS 06/30/2004 11/26/2014 documented as of this encounter (statuses as of 07/14/2021) [address] History of Past illness Narrative* Problem Noted Date Resolved Date Essential hypertension, benign 06/30/2004 0 03/12/2008 ROUTINE MEDICAL EXAM 06/30/2004 11/26/2014 CHEST PAIN NOS 06/30/2004 11/26/2014 documented as of this encounter (statuses as of 07/15/2021) [address] History of Past illness Narrative* Problem Noted Date Resolved Date Essential hypertension, benign 06/30/2004 0 03/12/2008 ROUTINE MEDICAL EXAM 06/30/2004 11/26/2014 CHEST PAIN NOS 06/30/2004 11/26/2014 documented as of this encounter (statuses as of 07/15/2021) [address] History of Past illness Narrative* Problem Noted Date Resolved Date Essential hypertension, benign 06/30/2004 0 03/12/2008 ROUTINE MEDICAL EXAM 06/30/2004 11/26/2014 CHEST PAIN NOS 06/30/2004 11/26/2014 documented as of this encounter (statuses as of 07/21/2021) [place] [id number] History of Past illness Narrative* Problem Noted Date Resolved Date Essential hypertension, benign 06/30/2004 0 03/12/2008 ROUTINE MEDICAL EXAM 06/30/2004 11/26/2014 CHEST PAIN NOS 06/30/2004 11/26/2014 documented as of this encounter (statuses as of 07/21/2021) [address] History of Past illness Narrative* Problem Noted Date Resolved Date Essential hypertension, benign 06/30/2004 0 03/12/2008 ROUTINE MEDICAL EXAM 06/30/2004 11/26/2014 CHEST PAIN NOS 06/30/2004 11/26/2014 documented as of this encounter (statuses as of 07/21/2021) [address] History of Past illness Narrative* Problem Noted Date Resolved Date Essential hypertension, benign 06/30/2004 0 03/12/2008 ROUTINE MEDICAL EXAM 06/30/2004 11/26/2014 CHEST PAIN NOS 06/30/2004 11/26/2014 documented as of this encounter (statuses as of 07/22/2021) [address] History of Past illness Narrative* Problem Noted Date Resolved Date Essential hypertension, benign 06/30/2004 0 03/12/2008 ROUTINE MEDICAL EXAM 06/30/2004 11/26/2014 CHEST PAIN NOS 06/30/2004 11/26/2014 documented as of this encounter (statuses as of 07/22/2021) [address] History of Past illness Narrative* Problem Noted Date Resolved Date Essential hypertension, benign 06/30/2004 0 03/12/2008 ROUTINE MEDICAL EXAM 06/30/2004 11/26/2014 CHEST PAIN NOS 06/30/2004 11/26/2014 documented as of this encounter (statuses as of 07/23/2021) [address] History of Past illness Narrative* Problem Noted Date Resolved Date Essential hypertension, benign 06/30/2004 0 03/12/2008 ROUTINE MEDICAL EXAM 06/30/2004 11/26/2014 CHEST PAIN NOS 06/30/2004 11/26/2014 documented as of this encounter (statuses as of 07/24/2021) [address] History of Past illness Narrative* Problem Noted Date Resolved Date Essential hypertension, benign 06/30/2004 0 03/12/2008 ROUTINE MEDICAL EXAM 06/30/2004 11/26/2014 CHEST PAIN NOS 06/30/2004 11/26/2014 documented as of this encounter (statuses as of 07/24/2021) [address] History of Past illness Narrative* Problem Noted Date Resolved Date Essential hypertension, benign 06/30/2004 0 03/12/2008 ROUTINE MEDICAL EXAM 06/30/2004 11/26/2014 CHEST PAIN NOS 06/30/2004 11/26/2014 documented as of this encounter (statuses as of 07/25/2021) [address] History of Past illness Narrative* Problem Noted Date Resolved Date Essential hypertension, benign 06/30/2004 0 03/12/2008 ROUTINE MEDICAL EXAM 06/30/2004 11/26/2014 CHEST PAIN NOS 06/30/2004 11/26/2014 documented as of this encounter (statuses as of 07/25/2021) [address] History of Past illness Narrative* Problem Noted Date Resolved Date Essential hypertension, benign 06/30/2004 0 03/12/2008 ROUTINE MEDICAL EXAM 06/30/2004 11/26/2014 CHEST PAIN NOS 06/30/2004 11/26/2014 documented as of this encounter (statuses as of 07/28/2021) [address]25-2005 History of Past illness Narrative* Problem Noted Date Resolved Date Essential hypertension, benign 06/30/2004 0 03/12/2008 ROUTINE MEDICAL EXAM 06/30/2004 11/26/2014 CHEST PAIN NOS 06/30/2004 11/26/2014 documented as of this encounter (statuses as of 07/29/2021) [address] History of Past illness Narrative* Problem Noted Date Resolved Date Essential hypertension, benign 06/30/2004 0 03/12/2008 ROUTINE MEDICAL EXAM 06/30/2004 11/26/2014 CHEST PAIN NOS 06/30/2004 11/26/2014 documented as of this encounter (statuses as of 07/29/2021) [address]2005 History of Past illness Narrative* Problem Noted Date Resolved Date Essential hypertension, benign 06/30/2004 0 03/12/2008 ROUTINE MEDICAL EXAM 06/30/2004 11/26/2014 CHEST PAIN NOS 06/30/2004 11/26/2014 documented as of this encounter (statuses as of 07/30/2021) [place] [id number] History of Past illness Narrative* Problem Noted Date Resolved Date Essential hypertension, benign 06/30/2004 0 03/12/2008 ROUTINE MEDICAL EXAM 06/30/2004 11/26/2014 CHEST PAIN NOS 06/30/2004 11/26/2014 documented as of this encounter (statuses as of 07/31/2021) [place] [id number] History of Past illness Narrative* Problem Noted Date Resolved Date Essential hypertension, benign 06/30/2004 0 03/12/2008 ROUTINE MEDICAL EXAM 06/30/2004 11/26/2014 CHEST PAIN NOS 06/30/2004 11/26/2014 documented as of this encounter (statuses as of 08/03/2021) [address] History of Past illness Narrative* Problem Noted Date Resolved Date Essential hypertension, benign 06/30/2004 0 03/12/2008 ROUTINE MEDICAL EXAM 06/30/2004 11/26/2014 CHEST PAIN NOS 06/30/2004 11/26/2014 documented as of this encounter (statuses as of 08/06/2021) [address] History of Past illness Narrative* Problem Noted Date Resolved Date Essential hypertension, benign 06/30/2004 0 03/12/2008 ROUTINE MEDICAL EXAM 06/30/2004 11/26/2014 CHEST PAIN NOS 06/30/2004 11/26/2014 documented as of this encounter (statuses as of 08/06/2021) [address] History of Past illness Narrative* Problem Noted Date Resolved Date Essential hypertension, benign 06/30/2004 0 03/12/2008 ROUTINE MEDICAL EXAM 06/30/2004 11/26/2014 CHEST PAIN NOS 06/30/2004 11/26/2014 documented as of this encounter (statuses as of 08/07/2021) [address] History of Past illness Narrative* Problem Noted Date Resolved Date Essential hypertension, benign 06/30/2004 0 03/12/2008 ROUTINE MEDICAL EXAM 06/30/2004 11/26/2014 CHEST PAIN NOS 06/30/2004 11/26/2014 documented as of this encounter (statuses as of 08/08/2021) [address] History of Past illness Narrative* Problem Noted Date Resolved Date Essential hypertension, benign 06/30/2004 0 03/12/2008 ROUTINE MEDICAL EXAM 06/30/2004 11/26/2014 CHEST PAIN NOS 06/30/2004 11/26/2014 documented as of this encounter (statuses as of 08/08/2021) [address] History of Past illness Narrative* Problem Noted Date Resolved Date Essential hypertension, benign 06/30/2004 0 03/12/2008 ROUTINE MEDICAL EXAM 06/30/2004 11/26/2014 CHEST PAIN NOS 06/30/2004 11/26/2014 documented as of this encounter (statuses as of 08/08/2021) [address] History of Past illness Narrative* Problem Noted Date Resolved Date Essential hypertension, benign 06/30/2004 0 03/12/2008 ROUTINE MEDICAL EXAM 06/30/2004 11/26/2014 CHEST PAIN NOS 06/30/2004 11/26/2014 documented as of this encounter (statuses as of 08/08/2021) [address] History of Past illness Narrative* Problem Noted Date Resolved Date Essential hypertension, benign 06/30/2004 0 03/12/2008 ROUTINE MEDICAL EXAM 06/30/2004 11/26/2014 CHEST PAIN NOS 06/30/2004 11/26/2014 documented as of this encounter (statuses as of 08/11/2021) [address] History of Past illness Narrative* Problem Noted Date Resolved Date Essential hypertension, benign 06/30/2004 0 03/12/2008 ROUTINE MEDICAL EXAM 06/30/2004 11/26/2014 CHEST PAIN NOS 06/30/2004 11/26/2014 documented as of this encounter (statuses as of 08/12/2021) [address] History of Past illness Narrative* Problem Noted Date Resolved Date Essential hypertension, benign 06/30/2004 0 03/12/2008 ROUTINE MEDICAL EXAM 06/30/2004 11/26/2014 CHEST PAIN NOS 06/30/2004 11/26/2014 documented as of this encounter (statuses as of 08/12/2021) [address] History of Past illness Narrative* Problem Noted Date Resolved Date Essential hypertension, benign 06/30/2004 0 03/12/2008 ROUTINE MEDICAL EXAM 06/30/2004 11/26/2014 CHEST PAIN NOS 06/30/2004 11/26/2014 documented as of this encounter (statuses as of 08/13/2021) [address] History of Past illness Narrative* Problem Noted Date Resolved Date Essential hypertension, benign 06/30/2004 0 03/12/2008 ROUTINE MEDICAL EXAM 06/30/2004 11/26/2014 CHEST PAIN NOS 06/30/2004 11/26/2014 documented as of this encounter (statuses as of 08/18/2021) [address] History of Past illness Narrative* Problem Noted Date Resolved Date Essential hypertension, benign 06/30/2004 0 03/12/2008 ROUTINE MEDICAL EXAM 06/30/2004 11/26/2014 CHEST PAIN NOS 06/30/2004 11/26/2014 documented as of this encounter (statuses as of 08/18/2021) [address] History of Past illness Narrative* Problem Noted Date Resolved Date Essential hypertension, benign 06/30/2004 0 03/12/2008 ROUTINE MEDICAL EXAM 06/30/2004 11/26/2014 CHEST PAIN NOS 06/30/2004 11/26/2014 documented as of this encounter (statuses as of 08/18/2021) [address] History of Past illness Narrative* Problem Noted Date Resolved Date Essential hypertension, benign 06/30/2004 0 03/12/2008 ROUTINE MEDICAL EXAM 06/30/2004 11/26/2014 CHEST PAIN NOS 06/30/2004 11/26/2014 documented as of this encounter (statuses as of 08/19/2021) [address] History of Past illness Narrative* Problem Noted Date Resolved Date Essential hypertension, benign 06/30/2004 0 03/12/2008 ROUTINE MEDICAL EXAM 06/30/2004 11/26/2014 CHEST PAIN NOS 06/30/2004 11/26/2014 documented as of this encounter (statuses as of 08/19/2021) [address] History of Past illness Narrative* Problem Noted Date Resolved Date Essential hypertension, benign 06/30/2004 0 03/12/2008 ROUTINE MEDICAL EXAM 06/30/2004 11/26/2014 CHEST PAIN NOS 06/30/2004 11/26/2014 documented as of this encounter (statuses as of 08/20/2021) [address] History of Past illness Narrative* Problem Noted Date Resolved Date Essential hypertension, benign 06/30/2004 0 03/12/2008 ROUTINE MEDICAL EXAM 06/30/2004 11/26/2014 CHEST PAIN NOS 06/30/2004 11/26/2014 documented as of this encounter (statuses as of 08/21/2021) [address] History of Past illness Narrative* Problem Noted Date Resolved Date Essential hypertension, benign 06/30/2004 0 03/12/2008 ROUTINE MEDICAL EXAM 06/30/2004 11/26/2014 CHEST PAIN NOS 06/30/2004 11/26/2014 documented as of this encounter (statuses as of 08/27/2021) [address] History of Past illness Narrative* Problem Noted Date Resolved Date Essential hypertension, benign 06/30/2004 0 03/12/2008 ROUTINE MEDICAL EXAM 06/30/2004 11/26/2014 CHEST PAIN NOS 06/30/2004 11/26/2014 documented as of this encounter (statuses as of 08/28/2021) [address] History of Past illness Narrative* Problem Noted Date Resolved Date Essential hypertension, benign 06/30/2004 0 03/12/2008 ROUTINE MEDICAL EXAM 06/30/2004 11/26/2014 CHEST PAIN NOS 06/30/2004 11/26/2014 documented as of this encounter (statuses as of 09/01/2021) [address] History of Past illness Narrative* Problem Noted Date Resolved Date Essential hypertension, benign 06/30/2004 0 03/12/2008 ROUTINE MEDICAL EXAM 06/30/2004 11/26/2014 CHEST PAIN NOS 06/30/2004 11/26/2014 documented as of this encounter (statuses as of 09/02/2021) [address] History of Past illness Narrative* Problem Noted Date Resolved Date Essential hypertension, benign 06/30/2004 0 03/12/2008 ROUTINE MEDICAL EXAM 06/30/2004 11/26/2014 CHEST PAIN NOS 06/30/2004 11/26/2014 documented as of this encounter (statuses as of 09/03/2021) [address] History of Past illness Narrative* Problem Noted Date Resolved Date Essential hypertension, benign 06/30/2004 0 03/12/2008 ROUTINE MEDICAL EXAM 06/30/2004 11/26/2014 CHEST PAIN NOS 06/30/2004 11/26/2014 documented as of this encounter (statuses as of 09/03/2021) [address] History of Past illness Narrative* Problem Noted Date Resolved Date Essential hypertension, benign 06/30/2004 0 03/12/2008 ROUTINE MEDICAL EXAM 06/30/2004 11/26/2014 CHEST PAIN NOS 06/30/2004 11/26/2014 documented as of this encounter (statuses as of 09/03/2021) [address] History of Past illness Narrative* Problem Noted Date Resolved Date Essential hypertension, benign 06/30/2004 0 03/12/2008 ROUTINE MEDICAL EXAM 06/30/2004 11/26/2014 CHEST PAIN NOS 06/30/2004 11/26/2014 documented as of this encounter (statuses as of 09/11/2021) [address] History of Past illness Narrative* Problem Noted Date Resolved Date Essential hypertension, benign 06/30/2004 0 03/12/2008 ROUTINE MEDICAL EXAM 06/30/2004 11/26/2014 CHEST PAIN NOS 06/30/2004 11/26/2014 documented as of this encounter (statuses as of 09/11/2021) [address] History of Past illness Narrative* Problem Noted Date Resolved Date Essential hypertension, benign 06/30/2004 0 03/12/2008 ROUTINE MEDICAL EXAM 06/30/2004 11/26/2014 CHEST PAIN NOS 06/30/2004 11/26/2014 documented as of this encounter (statuses as of 09/16/2021) [address] History of Past illness Narrative* Problem Noted Date Resolved Date Essential hypertension, benign 06/30/2004 0 03/12/2008 ROUTINE MEDICAL EXAM 06/30/2004 11/26/2014 CHEST PAIN NOS 06/30/2004 11/26/2014 documented as of this encounter (statuses as of 09/17/2021) [address] History of Past illness Narrative* Problem Noted Date Resolved Date Essential hypertension, benign 06/30/2004 0 03/12/2008 ROUTINE MEDICAL EXAM 06/30/2004 11/26/2014 CHEST PAIN NOS 06/30/2004 11/26/2014 documented as of this encounter (statuses as of 09/19/2021) [address] History of Past illness Narrative* Problem Noted Date Resolved Date Essential hypertension, benign 06/30/2004 0 03/12/2008 ROUTINE MEDICAL EXAM 06/30/2004 11/26/2014 CHEST PAIN NOS 06/30/2004 11/26/2014 documented as of this encounter (statuses as of 09/22/2021) [address] History of Past illness Narrative* Problem Noted Date Resolved Date Essential hypertension, benign 06/30/2004 0 03/12/2008 ROUTINE MEDICAL EXAM 06/30/2004 11/26/2014 CHEST PAIN NOS 06/30/2004 11/26/2014 documented as of this encounter (statuses as of 09/29/2021) [address] History of Past illness Narrative* Problem Noted Date Resolved Date Essential hypertension, benign 06/30/2004 0 03/12/2008 ROUTINE MEDICAL EXAM 06/30/2004 11/26/2014 CHEST PAIN NOS 06/30/2004 11/26/2014 documented as of this encounter (statuses as of 09/29/2021) [address] History of Past illness Narrative* Problem Noted Date Resolved Date Essential hypertension, benign 06/30/2004 0 03/12/2008 ROUTINE MEDICAL EXAM 06/30/2004 11/26/2014 CHEST PAIN NOS 06/30/2004 11/26/2014 documented as of this encounter (statuses as of 09/29/2021) [address] History of Past illness Narrative* Problem Noted Date Resolved Date Essential hypertension, benign 06/30/2004 0 03/12/2008 ROUTINE MEDICAL EXAM 06/30/2004 11/26/2014 CHEST PAIN NOS 06/30/2004 11/26/2014 documented as of this encounter (statuses as of 10/09/2021) [address] History of Past illness Narrative* Problem Noted Date Resolved Date Essential hypertension, benign 06/30/2004 0 03/12/2008 ROUTINE MEDICAL EXAM 06/30/2004 11/26/2014 CHEST PAIN NOS 06/30/2004 11/26/2014 documented as of this encounter (statuses as of 10/13/2021) [address] History of Past illness Narrative* Problem Noted Date Resolved Date Essential hypertension, benign 06/30/2004 0 03/12/2008 ROUTINE MEDICAL EXAM 06/30/2004 11/26/2014 CHEST PAIN NOS 06/30/2004 11/26/2014 documented as of this encounter (statuses as of 10/14/2021) [address] History of Past illness Narrative* Problem Noted Date Resolved Date Essential hypertension, benign 06/30/2004 0 03/12/2008 ROUTINE MEDICAL EXAM 06/30/2004 11/26/2014 CHEST PAIN NOS 06/30/2004 11/26/2014 documented as of this encounter (statuses as of 10/21/2021) [address] History of Past illness Narrative* Problem Noted Date Resolved Date Essential hypertension, benign 06/30/2004 0 03/12/2008 ROUTINE MEDICAL EXAM 06/30/2004 11/26/2014 CHEST PAIN NOS 06/30/2004 11/26/2014 documented as of this encounter (statuses as of 10/21/2021) [address] History of Past illness Narrative* Problem Noted Date Resolved Date Essential hypertension, benign 06/30/2004 0 03/12/2008 ROUTINE MEDICAL EXAM 06/30/2004 11/26/2014 CHEST PAIN NOS 06/30/2004 11/26/2014 documented as of this encounter (statuses as of 10/27/2021) [address] History of Past illness Narrative* Problem Noted Date Resolved Date Essential hypertension, benign 06/30/2004 0 03/12/2008 ROUTINE MEDICAL EXAM 06/30/2004 11/26/2014 CHEST PAIN NOS 06/30/2004 11/26/2014 documented as of this encounter (statuses as of 10/27/2021) [address] History of Past illness Narrative* Problem Noted Date Resolved Date Essential hypertension, benign 06/30/2004 0 03/12/2008 ROUTINE MEDICAL EXAM 06/30/2004 11/26/2014 CHEST PAIN NOS 06/30/2004 11/26/2014 documented as of this encounter (statuses as of 11/03/2021) [address] History of Past illness Narrative* Problem Noted Date Resolved Date Essential hypertension, benign 06/30/2004 0 03/12/2008 ROUTINE MEDICAL EXAM 06/30/2004 11/26/2014 CHEST PAIN NOS 06/30/2004 11/26/2014 documented as of this encounter (statuses as of 11/04/2021) [address] History of Past illness Narrative* Problem Noted Date Resolved Date Essential hypertension, benign 06/30/2004 0 03/12/2008 ROUTINE MEDICAL EXAM 06/30/2004 11/26/2014 CHEST PAIN NOS 06/30/2004 11/26/2014 documented as of this encounter (statuses as of 11/06/2021) [address] History of Past illness Narrative* Problem Noted Date Resolved Date Essential hypertension, benign 06/30/2004 0 03/12/2008 ROUTINE MEDICAL EXAM 06/30/2004 11/26/2014 CHEST PAIN NOS 06/30/2004 11/26/2014 documented as of this encounter (statuses as of 11/17/2021) [address] History of Past illness Narrative* Problem Noted Date Resolved Date Essential hypertension, benign 06/30/2004 0 03/12/2008 ROUTINE MEDICAL EXAM 06/30/2004 11/26/2014 CHEST PAIN NOS 06/30/2004 11/26/2014 documented as of this encounter (statuses as of 11/19/2021) [address] History of Past illness Narrative* Problem Noted Date Resolved Date Essential hypertension, benign 06/30/2004 0 03/12/2008 ROUTINE MEDICAL EXAM 06/30/2004 11/26/2014 CHEST PAIN NOS 06/30/2004 11/26/2014 documented as of this encounter (statuses as of 11/21/2021) [address] History of Past illness Narrative* Problem Noted Date Resolved Date Essential hypertension, benign 06/30/2004 0 03/12/2008 ROUTINE MEDICAL EXAM 06/30/2004 11/26/2014 CHEST PAIN NOS 06/30/2004 11/26/2014 documented as of this encounter (statuses as of 11/21/2021) [address] History of Past illness Narrative* Problem Noted Date Resolved Date Essential hypertension, benign 06/30/2004 0 03/12/2008 ROUTINE MEDICAL EXAM 06/30/2004 11/26/2014 CHEST PAIN NOS 06/30/2004 11/26/2014 documented as of this encounter (statuses as of 11/25/2021) [address] History of Past illness Narrative* Problem Noted Date Resolved Date Essential hypertension, benign 06/30/2004 0 03/12/2008 ROUTINE MEDICAL EXAM 06/30/2004 11/26/2014 CHEST PAIN NOS 06/30/2004 11/26/2014 documented as of this encounter (statuses as of 11/29/2021) [address] History of Past illness Narrative* Problem Noted Date Resolved Date Essential hypertension, benign 06/30/2004 0 03/12/2008 ROUTINE MEDICAL EXAM 06/30/2004 11/26/2014 CHEST PAIN NOS 06/30/2004 11/26/2014 documented as of this encounter (statuses as of 12/09/2021) [address] History of Past illness Narrative* Problem Noted Date Resolved Date Essential hypertension, benign 06/30/2004 0 03/12/2008 ROUTINE MEDICAL EXAM 06/30/2004 11/26/2014 CHEST PAIN NOS 06/30/2004 11/26/2014 documented as of this encounter (statuses as of 12/17/2021) [address] History of Past illness Narrative* Problem Noted Date Resolved Date Essential hypertension, benign 06/30/2004 0 03/12/2008 ROUTINE MEDICAL EXAM 06/30/2004 11/26/2014 CHEST PAIN NOS 06/30/2004 11/26/2014 documented as of this encounter (statuses as of 12/27/2021) [address] History of Past illness Narrative* Problem Noted Date Resolved Date Essential hypertension, benign 06/30/2004 0 03/12/2008 ROUTINE MEDICAL EXAM 06/30/2004 11/26/2014 CHEST PAIN NOS 06/30/2004 11/26/2014 documented as of this encounter (statuses as of 12/28/2021) [address] History of Past illness Narrative* Problem Noted Date Resolved Date Essential hypertension, benign 06/30/2004 0 03/12/2008 ROUTINE MEDICAL EXAM 06/30/2004 11/26/2014 CHEST PAIN NOS 06/30/2004 11/26/2014 documented as of this encounter (statuses as of 12/30/2021) [address] History of Past illness Narrative* Problem Noted Date Resolved Date Essential hypertension, benign 06/30/2004 0 03/12/2008 ROUTINE MEDICAL EXAM 06/30/2004 11/26/2014 CHEST PAIN NOS 06/30/2004 11/26/2014 documented as of this encounter (statuses as of 12/30/2021) [place] [id number] History of Past illness Narrative* Problem Noted Date Resolved Date Essential hypertension, benign 06/30/2004 0 03/12/2008 ROUTINE MEDICAL EXAM 06/30/2004 11/26/2014 CHEST PAIN NOS 06/30/2004 11/26/2014 documented as of this encounter (statuses as of 01/07/2022) [address] History of Past illness Narrative* Problem Noted Date Resolved Date Essential hypertension, benign 06/30/2004 0 03/12/2008 ROUTINE MEDICAL EXAM 06/30/2004 11/26/2014 CHEST PAIN NOS 06/30/2004 11/26/2014 documented as of this encounter (statuses as of 01/20/2022) [address] History of Past illness Narrative* Problem Noted Date Resolved Date Essential hypertension, benign 06/30/2004 0 03/12/2008 ROUTINE MEDICAL EXAM 06/30/2004 11/26/2014 CHEST PAIN NOS 06/30/2004 11/26/2014 documented as of this encounter (statuses as of 01/22/2022) [address] History of Past illness Narrative* Problem Noted Date Resolved Date Essential hypertension, benign 06/30/2004 0 03/12/2008 ROUTINE MEDICAL EXAM 06/30/2004 11/26/2014 CHEST PAIN NOS 06/30/2004 11/26/2014 documented as of this encounter (statuses as of 01/26/2022) [address] History of Past illness Narrative* Problem Noted Date Resolved Date Essential hypertension, benign 06/30/2004 0 03/12/2008 ROUTINE MEDICAL EXAM 06/30/2004 11/26/2014 CHEST PAIN NOS 06/30/2004 11/26/2014 documented as of this encounter (statuses as of 02/12/2022) [address] History of Past illness Narrative* Problem Noted Date Resolved Date Essential hypertension, benign 06/30/2004 0 03/12/2008 ROUTINE MEDICAL EXAM 06/30/2004 11/26/2014 CHEST PAIN NOS 06/30/2004 11/26/2014 documented as of this encounter (statuses as of 02/13/2022) [address] History of Past illness Narrative* Problem Noted Date Resolved Date Essential hypertension, benign 06/30/2004 0 03/12/2008 ROUTINE MEDICAL EXAM 06/30/2004 11/26/2014 CHEST PAIN NOS 06/30/2004 11/26/2014 documented as of this encounter (statuses as of 02/16/2022) [address] History of Past illness Narrative* Problem Noted Date Resolved Date Essential hypertension, benign 06/30/2004 0 03/12/2008 ROUTINE MEDICAL EXAM 06/30/2004 11/26/2014 CHEST PAIN NOS 06/30/2004 11/26/2014 documented as of this encounter (statuses as of 02/17/2022) [address] History of Past illness Narrative* Problem Noted Date Resolved Date Essential hypertension, benign 06/30/2004 0 03/12/2008 ROUTINE MEDICAL EXAM 06/30/2004 11/26/2014 CHEST PAIN NOS 06/30/2004 11/26/2014 documented as of this encounter (statuses as of 02/17/2022) [address] History of Past illness Narrative* Problem Noted Date Resolved Date Essential hypertension, benign 06/30/2004 0 03/12/2008 ROUTINE MEDICAL EXAM 06/30/2004 11/26/2014 CHEST PAIN NOS 06/30/2004 11/26/2014 documented as of this encounter (statuses as of 03/13/2022) [address] History of Past illness Narrative* Problem Noted Date Resolved Date Essential hypertension, benign 06/30/2004 0 03/12/2008 ROUTINE MEDICAL EXAM 06/30/2004 11/26/2014 CHEST PAIN NOS 06/30/2004 11/26/2014 documented as of this encounter (statuses as of 03/13/2022) [address] History of Past illness Narrative* Problem Noted Date Resolved Date Essential hypertension, benign 06/30/2004 0 03/12/2008 ROUTINE MEDICAL EXAM 06/30/2004 11/26/2014 CHEST PAIN NOS 06/30/2004 11/26/2014 documented as of this encounter (statuses as of 03/17/2022) [address] History of Past illness Narrative* Problem Noted Date Resolved Date Essential hypertension, benign 06/30/2004 0 03/12/2008 ROUTINE MEDICAL EXAM 06/30/2004 11/26/2014 CHEST PAIN NOS 06/30/2004 11/26/2014 documented as of this encounter (statuses as of 03/17/2022) [place] [id number] History of Past illness Narrative* Problem Noted Date Resolved Date Essential hypertension, benign 06/30/2004 0 03/12/2008 ROUTINE MEDICAL EXAM 06/30/2004 11/26/2014 CHEST PAIN NOS 06/30/2004 11/26/2014 documented as of this encounter (statuses as of 03/23/2022) [place] [id number] History of Past illness Narrative* Problem Noted Date Resolved Date Essential hypertension, benign 06/30/2004 0 03/12/2008 ROUTINE MEDICAL EXAM 06/30/2004 11/26/2014 CHEST PAIN NOS 06/30/2004 11/26/2014 documented as of this encounter (statuses as of 03/24/2022) [place] [id number] History of Past illness Narrative* Problem Noted Date Resolved Date Essential hypertension, benign 06/30/2004 0 03/12/2008 ROUTINE MEDICAL EXAM 06/30/2004 11/26/2014 CHEST PAIN NOS 06/30/2004 11/26/2014 documented as of this encounter (statuses as of 03/25/2022) [place] [id number] History of Past illness Narrative* Problem Noted Date Resolved Date Essential hypertension, benign 06/30/2004 0 03/12/2008 ROUTINE MEDICAL EXAM 06/30/2004 11/26/2014 CHEST PAIN NOS 06/30/2004 11/26/2014 documented as of this encounter (statuses as of 03/27/2022) [place] [id number] History of Past illness Narrative* Problem Noted Date Resolved Date Essential hypertension, benign 06/30/2004 0 03/12/2008 ROUTINE MEDICAL EXAM 06/30/2004 11/26/2014 CHEST PAIN NOS 06/30/2004 11/26/2014 documented as of this encounter (statuses as of 04/02/2022) [address] History of Past illness Narrative* Problem Noted Date Resolved Date Essential hypertension, benign 06/30/2004 0 03/12/2008 ROUTINE MEDICAL EXAM 06/30/2004 11/26/2014 CHEST PAIN NOS 06/30/2004 11/26/2014 documented as of this encounter (statuses as of 04/09/2022) [facility] Aram Armstrong [facility] April 16, 2022 1:56pm Note Date/Time April 16, 2022 1 :41pm [facility] Medical Records Department [address] [place] [address] Discharge Summary 04/16/22 1341 MR#: [id number] Acct: [id number] Name: YEFRI YANEZ Rep #:[id number] : [id number] 57 From: Carol Chiu DO PCP: Dr. Jose Ramon Turner MD Status: ADM IN Location: [place] [address] Providers Date of Admission: 04/13/22 Date of [...] Hospital Course: Mr. Yanez is a 57-year-old -[place]ian male with a history of metastaticclear-cell carcinoma of the right kidney who is status post nephrectomy and radiation and now undergoing chemotherapy who presented to the emergency department at [facility] with a 2-week history of progressively worsening [...] last year by Dr[facility] Aravind Lopez at [facility]. 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 He request to see Dr. Gaona however [...] distress and well nourished Constitutional Narrative: Obese, -[place]ian, sitting up on the edge of the [...] Self Care Charges/Coding Visit Charges Inpatient E&M: 53058 Disch Hosp >30min 04/16/22 1355 <Electronically signed by Carol Chiu DO> Cosigner Signature (if applicable): CC: Dr. Jose Ramon Turner MD; Dr. Carol Chiu DO~ Signed [facility] Work Phone: Discharge summary Author Carol Chiu [facility] December 17, 2022 12:20pm Note Date/Time December 17, 2022 1 2:11pm [facility] Medical Records Department [address] [place] [address] Discharge Summary 12/17/22 1210 MR#: [id number] Acct: [id number] Name: YEFRI YANEZ Rep #:[id number] : 1965 57 From: Carol Chiu DO PCP: Dr. Jose Ramon Turner MD Status: ADM IN Location: [place] [id number] Providers Date of Admission: 12/16/22 Date [...] Hospital Course: Mr. Yanez is a 57-year-old -[place]ian male who presented to the emergency department at [facility] on 12/15/2022 with worsening shortness of breath. Patient told the admitting physician that he is supposed to be wearing his oxygen all the time at home however he is only wearing it whenneeded. His oxygen was written for by Dr. Yanez and is to be 3 L [id number]. He does have a history of systolic [...] failure--> home prescription is for 3 L [id number] Atrial fibrillation Hyperlipidemia GERD NIMCO Tobacco abuse Physical Exam Const no apparent distress and well nourished; Negative for average body habitus or healthy appearing Constitutional Narrative: Obese, -Guamanian, male, lying in bed resting comfortably but [...] 71.5 H, Lymph % (Auto) 16.9 L, [place] % (Auto) 9.8, Eos % (Auto) 1.0, [...] Self Care Charges/Coding Visit Charges Inpatient E&M: 86151 Disch Hosp >30min 12/17/22 1220 <Electronically signed by Carol Chiu DO> Cosigner Signature (if applicable): CC: Dr. Jose Ramon Turner MD; Dr. Carol Chiu DO; Dr. Cipriano Yanez MD~ Signed [facility] Work Phone: Evaluation note* Diagnosis Onset Date Resolution Status Mass of chest wall Active [facility] Work Phone: Evaluation note* Diagnosis Malignant neoplasm of kidney, unspecified laterality (HCC)- Primary Malignant neoplasm of kidney excluding renal pelvis, unspecified laterality (HCC) [facility] Diagnosis Mass of right chest wall- Primary [facility] Diagnosis Screening for genitourinary condition Screening for other and unspecified genitourinary condition Malignant neoplasm of kidney, unspecified laterality (HCC) [facility] Diagnosis Malignant neoplasm of kidney, unspecified laterality (HCC) Malignant neoplasm of kidney excluding renal pelvis, unspecified laterality (HCC) Malignant neoplasm of kidney, unspecified laterality (HCC) [facility]* Diagnosis Malignant neoplasm of kidney, unspecified laterality (HCC) Malignant neoplasm of kidney excluding renal pelvis, unspecified laterality (HCC) documented in this encounter [facility] note* Diagnosis Malignant neoplasm of kidney, unspecified laterality (HCC) Malignant neoplasm of kidney excluding renal pelvis, unspecified laterality (HCC) Chest wall mass Swelling, mass, or lump in chest [facility] Diagnosis Malignant neoplasm of kidney excluding renal pelvis, unspecified laterality (HCC)- Primary [facility]* Diagnosis Malignant neoplasm of kidney excluding renal pelvis, unspecified laterality (HCC) [facility]* Diagnosis Malignant neoplasm of kidney excluding renal pelvis, unspecified laterality (HCC)- Primary Renal cell carcinoma, unspecified laterality (HCC) [facility]* Diagnosis Malignant neoplasm of right kidney, except renal pelvis (HCC)- Primary Malignant neoplasm of kidney, except pelvis [facility]* Diagnosis Anxiety- Primary Anxiety state, unspecified [facility]* Diagnosis Malignant neoplasm of right kidney, except renal pelvis (HCC) Malignant neoplasm of kidney, except pelvis [facility]* Diagnosis Malignant neoplasm of kidney excluding renal pelvis, unspecified laterality (HCC)- Primary [facility]* Diagnosis Malignant neoplasm of right kidney, except renal pelvis (HCC) Malignant neoplasm of kidney, except pelvis Renal cell carcinoma, unspecified laterality (HCC) [facility]* Diagnosis Malignant neoplasm of kidney excluding renal pelvis, unspecified laterality (HCC) Renal cell carcinoma, unspecified laterality (HCC) documented in this encounter [facility] noteNo assessment information [facility]WP[facility] Work Phone: Evaluation note* Diagnosis Nonrheumatic mitral valve regurgitation- Primary Cardiomyopathy, nonischemic (HCC) Other primary cardiomyopathies documented in this encounter [facility] note* Diagnosis Malignant neoplasm of kidney excluding renal pelvis, unspecified laterality (HCC)- Primary Metastatic renal cell carcinoma, unspecified laterality (HCC) [facility] Diagnosis Renal cell carcinoma, unspecified laterality (HCC)- Primary [facility] Diagnosis Malignant neoplasm of kidney excluding renal pelvis, unspecified laterality (HCC) [facility]* Diagnosis Renal cell carcinoma of right kidney (HCC)- Primary [facility]* Diagnosis Nonrheumatic mitral valve regurgitation- Primary Nonrheumatic mitral valve regurgitation documented [facility]* Diagnosis Renal cell carcinoma, unspecified laterality (HCC)- Primary Hypertension, unspecified type [facility]* Diagnosis Renal cell carcinoma of right kidney (HCC)- Primary [facility]* Diagnosis Malignant neoplasm of right kidney, except renal pelvis (HCC) Malignant neoplasm of kidney, except pelvis [facility]* Diagnosis Renal cell carcinoma, unspecified laterality (HCC)- Primary [facility]* Diagnosis Renal cell carcinoma of right kidney (HCC)- Primary [facility]* Diagnosis Renal cell carcinoma of right kidney (HCC)- Primary [facility]* Diagnosis Other specified disorders of kidney and ureter documented [facility]* Diagnosis OPENED IN ERROR- Primary To allow closing an encounter opened in error (used in SmartSet) [facility] Diagnosis Pedal edema- Primary Edema Essential hypertension Unspecified essential hypertension Coronary artery disease involving [place] coronary artery of [place] heart without angina pectoris Disturbance in sleep behavior Sleep disturbance, unspecified [facility]* Diagnosis Renal cell carcinoma, unspecified laterality (HCC)- Primary Hypertension, unspecified type documented [facility]* Diagnosis Renal cell carcinoma, unspecified laterality (HCC)- Primary [facility]* Diagnosis Malignant neoplasm of kidney excluding renal pelvis, unspecified laterality (HCC) [facility]* Diagnosis Malignant neoplasm of right kidney, except renal pelvis (HCC)- Primary Malignant neoplasm of kidney, except pelvis [facility] Diagnosis SOB (shortness of breath)- Primary Shortness of breath Encounter for screening for COVID-19 Renal mass, right Unspecified disorder of kidney and ureter [facility] Diagnosis SOB (shortness of breath) Shortness of breath Encounter for screening for COVID-19 Renal mass, right Unspecified disorder of kidney and ureter [facility] Diagnosis SOB (shortness of breath) Shortness of breath Encounter for screening for COVID-19 Renal mass, right Unspecified disorder of kidney and ureter [facility] Diagnosis Renal cell carcinoma of right kidney (HCC)- Primary Encounter for screening for COVID-19 Renal mass, right Unspecified disorder of kidney and ureter [facility]* Diagnosis Metastatic renal cell carcinoma, unspecified laterality (HCC) Pneumonitis Pneumonia, organism unspecified Atrial fibrillation, unspecified type (HCC) Hypertension, unspecified type Encounter for screening for COVID-19 Renal mass, right Unspecified disorder of kidney and ureter [facility]* Diagnosis Paroxysmal atrial fibrillation (HCC)- Primary Atrial fibrillation Mitral valve insufficiency, unspecified etiology New onset a-fib (HCC) Atrial fibrillation Essential hypertension Unspecified essential hypertension Mixed hyperlipidemia Coronary artery disease involving [place] coronary artery of [place] heart with angina pectoris (HCC) Encounter for screening for COVID-19 Renal mass, right Unspecified disorder of kidney and ureter [facility]* Diagnosis Paroxysmal atrial fibrillation (HCC)- Primary Atrial fibrillation Encounter for screening for COVID-19 Renal mass, right Unspecified disorder of kidney and ureter [facility]* Diagnosis Renal cell carcinoma of right kidney (HCC)- Primary Atrial fibrillation, unspecified type (HCC) Encounter for screening for COVID-19 Renal mass, right Unspecified disorder of kidney and ureter [facility]* Diagnosis Renal cell carcinoma of right kidney (HCC)- Primary Encounter for screening for COVID-19 Renal mass, right Unspecified disorder of kidney and ureter [facility]* Diagnosis Preoperative examination- Primary Preoperative examination, [...] Other abnormal glucose Coronary artery disease involving [place] coronary artery of [place] heart, unspecified whether angina present Encounter for screening for COVID-19 Renal mass, right Unspecified disorder of kidney and ureter [facility] Diagnosis Metastatic renal cell carcinoma, unspecified laterality (HCC)- Primary [facility]* Diagnosis Malignant neoplasm of right kidney, except renal pelvis (HCC) Malignant neoplasm of kidney, except pelvis [facility]* Diagnosis Onset Date Resolution Status Atrial fibrillation with RVR acute Hypoxemia acute Systolic CHF, acute acute Acute exacerbation of CHF (congestive heart failure) [facility] Work Phone: Evaluation note* Diagnosis Renal cell carcinoma of right kidney (HCC)- Primary [facility]* Diagnosis Renal cell carcinoma of right kidney (HCC)- Primary [facility]* Diagnosis Renal cell carcinoma of right kidney (HCC) documented [facility]* Diagnosis Screening for genitourinary condition Screening for other and unspecified genitourinary condition documented [facility]* Cardiovascular: Regular, rate and rhythm, no [...] induration. Appropriately TTP.Psychological: Appropriate mood and behavior [facility] Diagnosis Renal cell carcinoma of right kidney metastatic to other site (HCC)- Primary Paroxysmal atrial fibrillation (HCC)- Primary Atrial fibrillation Nonrheumatic mitral valve regurgitation Acute decompensated heart failure (HCC) Congestive heart failure, unspecified Essential hypertension Unspecified essential hypertension Tobacco use disorder NIMCO (obstructive sleep apnea) Obstructive sleep apnea (adult) (pediatric) [facility]* Diagnosis Paroxysmal atrial fibrillation (HCC)- Primary Atrial fibrillation Nonrheumatic mitral valve regurgitation Acute decompensated heart failure (HCC) Congestive heart failure, unspecified Essential hypertension Unspecified essential hypertension Tobacco use disorder NIMCO (obstructive sleep apnea) Obstructive sleep apnea (adult) (pediatric) [facility]* Diagnosis Metastatic renal cell carcinoma, unspecified laterality (HCC)- Primary documented in this encounter [facility] note* Diagnosis Renal cell carcinoma of right kidney (HCC)- Primary [facility]* Diagnosis Renal cell carcinoma of right kidney (HCC)- Primary documented in this encounter [facility] note* Diagnosis Renal cell carcinoma of right kidney (HCC)- Primary documented in this encounter [facility] note* Diagnosis Malignant neoplasm of right kidney, except renal pelvis (HCC)- Primary Malignant neoplasm of kidney, except pelvis documented in this encounter [facility] note* Diagnosis Onset Date Resolution Status Acute exacerbation of CHF (congestive heart failure) [facility] Work Phone: Evaluation note* Diagnosis Onset Date Resolution Status Elevated serum creatinine ac dorothy Elevated troponin I level ac dorothy Hypoxemia acute Systolic CHF, acute acute Acute exacerbation of CHF (congestive heart failure) chronic [facility] Work Phone: Evaluation note* Diagnosis Onset Date Resolution Status Acute exacerbation of CHF (congestive heart failure) resolved Hypoxemia resolved Systolic CHF, acute resolved [facility] Work Phone: Evaluation note* Diagnosis Onset Date Resolution Status Acute exacerbation of CHF (congestive heart failure) resolved Hypoxemia resolved Systolic CHF, acute resolved CHF (congestive heart failure) acute Dyspnea acute [facility] Work Phone: Evaluation note* Diagnosis Onset Date Resolution Status Acute exacerbation of CHF (congestive heart failure) resolved Hypoxemia resolved Systolic CHF, acute resolved CHF (congestive heart failure) acute Dyspnea acute Thrush acute Hypertension chronic [facility] Work Phone: Evaluation note* Diagnosis Onset Date Resolution Status Acute exacerbation of CHF (congestive heart failure) resolved Hypoxemia resolved Systolic CHF, acute resolved Thrush acute CHF (congestive heart failure) resolved Dyspnea resolved Cancer acute Renal failure acute CHF (congestive heart failure) resolved 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 Dyspnea acute [facility] Work Phone: Evaluation note* Diagnosis Onset Date [...] chronic Metastatic renal cell carcinoma to bone [facility] Work Phone: Evaluation note* Diagnosis Onset Date [...] carcinoma to bone chronic Renal cell cancer [facility] Work Phone: Evaluation note* Diagnosis Onset Date [...] systolic heart failure chronic Chronic a-fib chronic [facility] Work Phone: Evaluation note* Diagnosis Onset Date Resolution Status Renal failure acute CHF (congestive heart failure) resolved Acute on chronic renal insufficiency resolved Acute on chronic systolic heart failure resolved Acute respiratory insufficiency resolved Acute systolic heart failure resolved Hemoptysis resolved Shortness of breath resolved [facility] Work Phone: Evaluation note* Diagnosis Onset Date Resolution Status Acute on chronic renal insufficiency resolved Acute on chronic systolic heart failure resolved Acute respiratory insufficiency resolved Acute systolic heart failure resolved Hemoptysis resolved Shortness of breath resolved [facility] Work Phone: Evaluation note* Diagnosis Onset Date Resolution Status 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 Renal cell cancer chronic [facility] Work Phone: Evaluation note* Diagnosis Pre-op exam- [...] Other abnormal glucose Coronary artery disease involving [place] coronary artery of [place] heart, unspecified whether angina present Acute decompensated heart failure (HCC) Congestive heart failure, unspecified Paroxysmal atrial fibrillation (HCC) Atrial fibrillation [facility] Author Dr. Camacho [facility] April 14, 2022 12:43am Note Date/Time April 14, 2022 1 2:24am [facility] Medical Records Department [address] [place] [address] H&P Exam - Hospitalist 04/13/22 2334 MR#: [id number] Acct: [id number] Name: YEFRI YANEZ Rep #:[id number] : 1965 57 From: Dangelo Camacho MD PCP: Dr. Jose Ramon Ranney, MD Status: ADM IN Location: ICU ICU09-1 [...] 79.4 H, Lymph % (Auto) 12.7 L, [place] % (Auto) 7.1, Eos % (Auto) 0.0, [...] is subtherapeutic. Charges/Coding Visit Charges Inpatient E&M: 14212 Init Hosp L3 04/14/22 0043 <Electronically signed by Dangelo [place] MD> Cosigner Signature (if applicable): CC: Dr. Jose Ramon Turner MD; Dr. Dangelo [place] MD~ Signed [facility] Work Phone: History and physical note Author Dr. Lu [facility] June 28, 2022 12:52am Note Date/Time June 28, 2022 12: 20am [facility] Medical Records Department [address] [place] [address] H&P Exam - Hospitalist 06/28/22 0007 MR#: [id number] Acct: [id number] Name: YEFRI YANEZ Rep #:[id number] : 1965 57 From: Estelita Lu MD PCP: Dr. Jose Ramon Turner MD Status: ADM IN Location: [place] [address] HPI - General General Date of Admission: 06/28/22 Date of Service: 06/28/22 Chief Complaint: Dyspnea, chest pain, wheezing, cough, recent incorrect Rx bumex. HPI Narrative The patient is a 57 y/o M w/ PMHx: Obesity, NIMCO on CPAP, PAF s/p prior cardioversion on coumadin, COPD, HTN, HLD, GERD, Metastatic renal CA s/p R nephrectomy, Tobacco use who presents to the [facility] ED on 06/27/22 with history [...] 75.4 H, Lymph % (Auto) 16.8 L, [place] % (Auto) 6.0, Eos % (Auto) 0.5, [...] nephrectomy, Tobacco use who presents to the [facility] ED on 06/27/22 with history [...] spine 12/2021, 02/06/2022 right radical nephrectomy at [facility], CT scan on 03/26/2022 showed no evidence [...] INR therapeutic 2.0. #15. CODE status: Patient CHAIATNYA is his who is present and living [...] 75 minutes. Charges/Coding Visit Charges Inpatient E&M: 37199 Init Hosp L3 Procedures Hospitalists Procedures: 72965 Advncd Care Plan 30 Min 06/28/22 0052 <Electronically signed by Estelita Lu MD> Cosigner Signature (if applicable): CC: Dr. Estelita Lu MD; Dr. Jose Ramon Turner MD~ Signed [facility] Work Phone: History of Present illness Narrative* [...] between urology, medical oncology, radiation oncology at [facility] was local therapy to metastatic sites and cytoreductive nephrectomy. * 12/08/2021-echo with EF 35%, LV and RV enlargement and hypokinesis * 12/26/2021-patient completed radiation to chest wall and L4 lesion * Patient has remained on cabo * Patient was scheduled for nephrectomy with Dr. Adriana Hodge, due to insurance issues patient could not be operated on at [facility], referred to [facility] for neph[facility]. * 01/19/2022-patient scheduled for laparoscopic nephrectomy 02/03 * 01/20/2022-patient presented to [place] ER with shortness of breath * 01/27/2022-patient presented to [facility] with persistence of subjective dyspnea, expiratory wheezing * 01/29/2022-patient represented to [place] ED with chest tightness and shortness of [...] fatigue. Appetite is normal. Normal bowel function. [id number]-Eyzhrifh [facility] 400 DO Work Phone: Hospital Discharge instructions [...] torsemide if you do not already have it.[facility] Work Phone: Reason for referral (narrative)* Diagnostic Procedure Only (Routine) - Closed Specialty Diagnoses / Procedures Referred By Contac t Referred To Contact [facility] Diagnoses Malignant neoplasm of kidney, unspecified laterality (HCC) Malignant neoplasm of kidney excluding renal pelvis, unspecified laterality (HCC) Procedures NM BONE WHOLE BODY BONE &/JOINT IMAGING WHOLE BODY Adriana Hodge MD [address] [place] [id number] [facility] [address] [place] [address] Referral ID Status Reason Start Date Expiration Date V isits Requested Visits Authorized [id number] Closed Auto-Generate d Referral 06/26/2021 08/10/2021 2 2 [facility] for referral (narrative)* Outpatient Procedure (Routine) - Authorized Specialty Diagnoses / Procedures Referred By Contac t Referred To Contact [facility] Diagnoses Malignant neoplasm of right kidney, except renal pelvis (HCC) Procedures ECHO ECHO TTC R-T 2D W/WOM-MODE COMPL SPEC&COLR D Stephany Ceballos PA-C [address] [place] [address] [facility] [place] [id number] [place] [id number] Referral ID Status Reason Start Date Expiration Date Visits Requested Visits Authorized [id number] Authorized Auto-Generat ed Referral 07/11/2021 07/11/2022 1 1 * Outpatient Procedure (Routine) - Authorized Specialty Diagnoses / Procedures Referred By Contac t Referred To Contact [facility] [place] Diagnoses Malignant neoplasm of right kidney, except renal pelvis (HCC) Procedures ECG COMPLETE ECG ROUTINE ECG W/LEAST 12 LDS W/I&R Stephany Ceballos PA-C [address] [place] [address] [address] Referral ID Status Reason Start Date Expiration Date Visits Requested Visits Authorized [id number] Authorized Auto-Generat ed Referral 07/11/2021 07/11/2022 1 1 [facility] for referral (narrative)* Reason for Referral: impaired mobility, gait training, impaired cognition/safety awareness [facility] Outpatient Procedure (Routine) - Denied Specialty Diagnoses / Procedures [facility] To Contact [facility] Diagnoses Acute decompensated heart failure (HCC) Paroxysmal atrial fibrillation (HCC) Procedures ECHO LIMITED ECHO TRANSTHORAC R-T 2D W/WO M-MODE REC COMP Sayra Tello MD [address] [place] [address] [place] [address] [place] [id number] Referral ID Status Reason Start Date Expiration Date V isits Requested Visits Authorized [id number] Denied Auto-Generate d Referral 02/16/2022 02/16/2023 1 0 [facility] for referral (narrative)* Diagnostic Procedure Only (Routine) - Authorized Specialty Diagnoses / Procedures [facility] To Contact MOLECULAR & FUNCTIONAL IMAGING Diagnoses Renal cell carcinoma of right kidney (HCC) Procedures NM BONE WHOLE BODY BONE &/JOINT IMAGING WHOLE BODY Haylee Wilburn MD [address] [place] [address] Molecular & Functional Imaging [address] [place] [address] Referral ID Status Reason Start Date Expiration Date Visits Requested Visits Authorized [id number] Authorized Auto-Generat ed Referral 03/11/2022 04/10/2023 1 1 * MRI/CT (Routine) - Authorized Specialty Diagnoses / Procedures Referred By Sujatha vasquez Referred To Contact CT IMAGING Diagnoses Renal cell carcinoma of right kidney (HCC) Procedures CT CHEST W IVCON DIAGNOSTIC COMPUTED TOMOGRAPHY THORAX W/CONTRAST Haylee Wilburn MD [address] [place] [address] Ct Imaging Referral ID Status Reason Start Date Expiration Date Visits Requested Visits Authorized [id number] Authorized Auto-Generat ed Referral 03/11/2022 04/10/2023 1 1 * MRI/CT (Routine) - Authorized Specialty Diagnoses / Procedures Referred By Sujatha vasquez Referred To Contact CT IMAGING Diagnoses Renal cell carcinoma of right kidney (HCC) Procedures CT ABD/PEL W IVCON CT ABD & PELVIS W/CONTRAST Haylee Wilburn MD [address] [place] [address] Ct Imaging Referral ID Status Reason Start Date Expiration Date Visits Requested Visits Authorized [id number] Authorized Auto-Generat ed Referral 03/11/2022 04/26/2022 1 1 [facility] Outpatient Procedure (Routine) - Closed Specialty Diagnoses / Procedures Referred By Sujatha vasquez Referred To Contact [facility] Diagnoses Acute decompensated heart failure (HCC) Paroxysmal atrial fibrillation (HCC) Procedures ECHO LIMITED ECHO TRANSTHORAC R-T 2D W/WO M-MODE REC COMP Sayra Tello MD [address] [place] [address] , [address] [place] [address] [facility] [place] [address] [place] [address] Referral ID Status Reason Start Date Expiration Date V isits Requested Visits Authorized [id number] Closed Patient Cleared - INN Insurance Found 02/19/2022 03/07/2022 1 1 [facility] for referral (narrative)No reason for referral [facility] Work Phone: [facility] for visit Narrative* Diagnostic Procedure Only (Routine) - Closed Specialty Diagnoses / Procedures Referred By Sujatha vasquez Referred To Contact MOLECULAR & FUNCTIONAL IMAGING Diagnoses Malignant neoplasm of kidney, unspecified laterality (HCC) Malignant neoplasm of kidney excluding renal pelvis, unspecified laterality (HCC) Procedures NM BONE WHOLE BODY BONE &/JOINT IMAGING WHOLE BODY Adriana Hodge MD [address] [place] [address] Molecular & Functional Imaging [address] [id number] Referral ID Status Reason Start Date Expiration Date V isits Requested Visits Authorized [id number] Closed Auto-Generate d Referral 06/26/2021 08/10/2021 2 2 [facility] for visit Narrative* Auth/Cert Specialty Diagnoses [...] STENT-PER MAJOR VESSEL OR BRANCH [facility] [address] [place] [address] Referral ID Status Reason Start Date Expiration Date Visits Re quested Visits Authorized [id number] 1 1 [facility] for visit Narrative* Outpatient Procedure (Routine) - Closed Specialty Diagnoses / Procedures Referred By Sujatha vasquez Referred To Contact [facility] Diagnoses Malignant neoplasm of right kidney, except renal pelvis (HCC) Procedures ECG COMPLETE ECG ROUTINE ECG W/LEAST 12 LDS W/I&R Stephany Ceballos PA-C [address] [place] [address] Heart [facility] Vascular [address] [address] Referral ID Status Reason Start Date Expiration Date V isits Requested Visits Authorized [id number] Closed Auto-Generate d Referral 07/11/2021 07/11/2022 1 1 [facility] for visit Narrative* Auth/Cert Specialty Diagnoses / Procedures Referred By Sujatha t Referred To Contact HOSP INPATIENT Diagnoses Paroxysmal atrial fibrillation Acute decompensated heart failure (HCC) Paroxysmal atrial fibrillation (HCC) Procedures INITIAL HOSPITAL CARE/DAY 70 MINUTES [facility] [address] [place] [address] Referral ID Status Reason Start Date Expiration Date Visits Re quested Visits Authorized [id number] 1 1 [facility] for visit Narrative* Diagnostic Procedure Only (Routine) - Closed Specialty Diagnoses / Procedures [facility] Referred To Contact MOLECULAR & FUNCTIONAL IMAGING Diagnoses Renal cell carcinoma of right kidney (HCC) Procedures NM BONE WHOLE BODY BONE &/JOINT IMAGING WHOLE BODY Haylee Wilburn MD [address] [place] [address] Molecular & Functional Imaging [address] [place] [address] Referral ID Status Reason Start Date Expiration Date V isits Requested Visits Authorized [id number] Closed Auto-Generate d Referral 03/11/2022 04/10/2023 1 2 [facility] for visit Narrative* Outpatient Procedure (Routine) - Closed Specialty Diagnoses / Procedures [facility] Diagnoses Acute decompensated heart failure (HCC) Paroxysmal atrial fibrillation (HCC) Procedures ECHO LIMITED ECHO TRANSTHORAC R-T 2D W/WO M-MODE REC COMP Sayra Tello MD [address] [facility], [address] [place] [address] Heart And Vascular [address] [address] Referral ID Status Reason Start Date Expiration Date V isits Requested Visits Authorized [id number] Closed Patient Cleared - INN Insurance Found 02/19/2022 03/07/2022 1 1 [facility] Summary Purpose Family History Relationship Condition Age at Onset Recorded Date/T hermelinda Not Specified Cardiac disease Unknown Malignant neoplasm Unknown Relationship Condition Age at Onset Recorded Date/T hermelinda father Malignant neoplasm Unknown mother Cardiac disease Unknown Hypertension Unknown Myocardial infarction Unknown Advance Directives Advance Directive Response Recorded Date/ Time Do You Have an Advance Directive? NO June 19, 2021 3:50pm Documents on File Type Date Recorded Patient Table Lever Operator Expl anation Advance Directive(s) 02/05/2020 6:22 PM Advance Directive(s) 11/14/2019 1:53 PM Documents on File Type Date Recorded Patient Table Lever Operator Expl anation Advance Directive(s) 02/05/2020 6:22 PM Advance Directive(s) 11/14/2019 1:53 PM Documents on File Type Date Recorded Patient Table Lever Operator Expl anation Advance Directive(s) 06/26/2021 2:39 PM Advance Directive(s) 02/05/2020 6:22 PM Advance Directive(s) 11/14/2019 1:53 PM Documents on File Type Date Recorded Patient Table Lever Operator Expl anation Advance Directive(s) 06/26/2021 2:39 PM Advance Directive(s) 02/05/2020 6:22 PM Advance Directive(s) 11/14/2019 1:53 PM Advance Directive Response Recorded Date/ Time Living Will No June 04, 2019 5:40pm Power of Sharepoint Consultant No June 03 5:40pm Documents on File Type Date Recorded Patient Table Lever Operator Expl anation Advance Directive(s) 07/31/2021 5:47 PM Advance Directive(s) 06/26/2021 2:39 PM Advance Directive(s) 02/05/2020 6:22 PM Advance Directive(s) 11/14/2019 1:53 PM Documents on File Type Date Recorded Patient Table Lever Operator Expl anation Advance Directive(s) 08/05/2021 5:50 AM Advance Directive(s) 07/31/2021 5:47 PM Advance Directive(s) 06/26/2021 2:39 PM Advance Directive(s) 02/05/2020 6:22 PM Advance Directive(s) 11/14/2019 1:53 PM Documents on File Type Date Recorded Patient Table Lever Operator Expl anation Advance Directive(s) 08/05/2021 5:50 AM Advance Directive(s) 07/31/2021 5:47 PM Advance Directive(s) 06/26/2021 2:39 PM Advance Directive(s) 02/05/2020 6:22 PM Advance Directive(s) 11/14/2019 1:53 PM Documents on File Type Date Recorded Patient Table Lever Operator Expl anation Advance Directive(s) 08/17/2021 3:47 PM Advance Directive(s) 08/05/2021 5:50 AM Advance Directive(s) 07/31/2021 5:47 PM Advance Directive(s) 06/26/2021 2:39 PM Advance Directive(s) 02/05/2020 6:22 PM Advance Directive(s) 11/14/2019 1:53 PM Documents on File Type Date Recorded Patient Table Lever Operator Expl anation Advance Directive(s) 08/17/2021 3:47 PM Advance Directive(s) 08/05/2021 5:50 AM Advance Directive(s) 07/31/2021 5:47 PM Advance Directive(s) 06/26/2021 2:39 PM Advance Directive(s) 02/05/2020 6:22 PM Advance Directive(s) 11/14/2019 1:53 PM Documents on File Type Date Recorded Patient Table Lever Operator Expl anation Advance Directive(s) 09/02/2021 6:28 PM [...] Documents on File Type Date Recorded Patient Table Lever Operator Expl anation Advance Directive(s) 09/02/2021 6:28 PM [...] Documents on File Type Date Recorded Patient Table Lever Operator Expl anation Advance Directive(s) 09/23/2021 1:52 PM [...] Documents on File Type Date Recorded Patient Table Lever Operator Expl anation Advance Directive(s) 09/23/2021 1:52 PM [...] Documents on File Type Date Recorded Patient Table Lever Operator Expl anation Advance Directive(s) 10/06/2021 1:03 PM Advance Directive(s) 09/23/2021 1:52 PM Advance Directive(s) 09/02/2021 6:28 PM Advance Directive(s) 08/17/2021 3:47 PM Advance Directive(s) 08/05/2021 5:50 AM Advance Directive(s) 07/31/2021 5:47 PM Advance Directive(s) 06/26/2021 2:39 PM Advance Directive(s) 02/05/2020 6:22 PM Advance Directive(s) 11/14/2019 1:53 PM Advance Directive Response Recorded Date/ Time Living Will No December 07 2:19pm Power of Sharepoint Consultant No December 07 2:19pm Advance Directive Response Recorded Date/ Time Living Will No January 20 7:21pm Power of Sharepoint Consultant No January 20, 2022 7:21pm Advance Directive Response Recorded Date/ Time Name of Medical Power of Sharepoint Consultant January 29, 2022 11:59am Living Will No January 29 11:59am Power of Sharepoint Consultant Yes January 29, 2022 11:59am Advance Directive Response Recorded Date/ Time Name of Medical Power of Sharepoint Consultant January 29, 2022 11:59am Name of Medical Power of Sharepoint Consultant MIYA YANEZ- April 13, 2022 10:43pm Living Will No April 13 10:43pm Power of Sharepoint Consultant Yes April 13, 2022 10:43pm Advance Directive Response Recorded Date/ Time Name of Medical Power of Sharepoint Consultant January 29, 2022 11:59am Name of Medical Power of Sharepoint Consultant Miay gilliam April 14, 2022 1:15am Living Will No April 14 1:15am Power of Sharepoint Consultant Yes April 14, 2022 1:15am Advance Directive Response Recorded Date/ Time Name of Medical Power of Sharepoint Consultant January 29, 2022 12:59pm Name of Medical Power of Sharepoint Consultant Miya gilliam April 14, 2022 2:15am Name of Medical Power of Sharepoint Consultant miya yanez May 18, 2022 3:35pm Living Will Yes May 18, 2022 3:35pm Power of Sharepoint Consultant Yes May 18 3:35pm Advance Directive Response Recorded Date/ Time Name of Medical Power of Sharepoint Consultant January 29, 2022 12:59pm Name of Medical Power of Sharepoint Consultant Miya gilliam April 14, 2022 2:15am Name of Medical Power of Sharepoint Consultant Miya Yanez May 18, 2022 7:01pm Living Will Yes May 18, 2022 7:01pm Power of Sharepoint Consultant Yes May 18 7:01pm Advance Directive Response Recorded Date/ Time Name of Medical Power of Sharepoint Consultant Miya gilliam April 14, 2022 2:15am Name of Medical Power of Sharepoint Consultant Miya Yanez May 18, 2022 7:01pm Name of Medical Power of Sharepoint Consultant June 27, 2022 11:12pm Living Will Yes June 27, 2022 11:12pm Power of Sharepoint Consultant Yes June 27 11:12pm Advance Directive Response Recorded Date/ Time Name of Medical Power of Sharepoint Consultant Miya gilliam April 14, 2022 2:15am Name of Medical Power of Sharepoint Consultant Miya Renata May 18, 2022 7:01pm Name of Medical Power of Sharepoint Consultant Miya Renata June 28, 2022 1:12am Living Will No June 28, 2022 1:12am Power of Sharepoint Consultant Yes June 28 1:12am Advance Directive Response Recorded Date/ Time Name of Medical Power of Sharepoint Consultant Miya Renata May 18, 2022 7:01pm Name of Medical Power of Sharepoint Consultant Miya Renata June 28, 2022 1:12am Living Will No June 28, 2022 1:12am Power of Sharepoint Consultant Yes June 28 1:12am Advance Directive Response Recorded Date/ Time Name of Medical Power of Sharepoint Consultant Lena Renata December 15, 2022 4:41pm Living Will No December 15 4:41pm Power of Sharepoint Consultant Yes December 15, 2022 4:41pm Advance Directive Response Recorded Date/ Time Name of Medical Power of Sharepoint Consultant Lena Yanez December 15, 2022 3:41pm Living Will No December 15 3:41pm Power of Sharepoint Consultant Yes December 15, 2022 3:41pm Advance Directive Response Recorded Date/ Time Living Will No December 15 3:41pm Power of Sharepoint Consultant Yes December 15, 2022 3:41pm Advance Directive Response Recorded Date/ Time Living Will No December 15 4:41pm Power of Sharepoint Consultant Yes December 15, 2022 4:41pm Date Activated [...] Do you have a Healthcare Power of Sharepoint Consultant? Yes December 15, 2022 4:41pm Reason for Referral Specialty Diagnoses / Procedures Referred By Sujatha vasquez Referred To Contact CT IMAGING Diagnoses Malignant neoplasm of kidney, unspecified laterality (HCC) Malignant neoplasm of kidney excluding renal pelvis, unspecified laterality (HCC) Procedures CT ABD/PEL WO IVCON CT ABD & PELVIS W/O CONTRAST Adriana Hodge MD [address] [place] [address] Ct Imaging Referral ID Status Reason Start Date Expiration Date Visits Requested Visits Authorized [id number] Pending Review Auto-Generat ed Referral 06/23/2021 07/23/2022 1 1 Specialty Diagnoses / Procedures Referred By Sujatha vasquez Referred To Contact CT IMAGING Diagnoses Malignant neoplasm of kidney, unspecified laterality (HCC) Malignant neoplasm of kidney excluding renal pelvis, unspecified laterality (HCC) Procedures CT ABD/PEL W IVCON CT ABD & PELVIS W/CONTRAST Adriana Hodge MD [address] [place] [address] Ct Imaging Referral ID Status Reason Start Date Expiration Date Visits Requested Visits Authorized [id number] Pending Review Auto-Generat ed Referral 06/23/2021 07/23/2022 1 1 Specialty Diagnoses / Procedures Referred By Contac t Referred To Contact MOLECULAR & FUNCTIONAL IMAGING Diagnoses Malignant neoplasm of kidney, unspecified laterality (HCC) Malignant neoplasm of kidney excluding renal pelvis, unspecified laterality (HCC) Procedures NM BONE WHOLE BODY BONE &/JOINT IMAGING WHOLE BODY Adriana Hodge MD [address] [place] [address] Molecular & Functional Imaging [address] [place] [address] Referral ID Status Reason Start Date Expiration Date Visits Requested Visits Authorized [id number] Pending Review Auto-Generat ed Referral 06/23/2021 07/23/2022 1 1 Specialty Diagnoses / Procedures Referred By Contac t Referred To Contact Oncology Diagnoses Malignant neoplasm of kidney, unspecified laterality (HCC) Malignant neoplasm of kidney excluding renal pelvis, unspecified laterality (HCC) Procedures CONSULT TO ONCOLOGY OFFICE/OUTPATIENT [facility] 60-74 MINUTES Adriana Hodge MD [address] [place] [address] Referral ID Status Reason Start Date Expiration Date Visits Requested Visits Authorized [id number] Pending Review PCP Requested Referral 06/23/2021 06/23/2022 1 1 Specialty Diagnoses / Procedures Referred By Contac t Referred To Contact RADIO CT SCAN [facility] Diagnoses Malignant neoplasm of kidney, unspecified laterality (HCC) Malignant neoplasm of kidney excluding renal pelvis, unspecified laterality (HCC) Procedures CT ABD/PEL W IVCON CT ABD & PELVIS W/CONTRAST Adriana Hodge MD [address] [place] [address] [facility] [address] [place] [address] Referral ID Status Reason Start Date Expiration Date V isits Requested Visits Authorized [id number] Closed Auto-Generate d Referral 06/26/2021 08/10/2021 1 1 Specialty Diagnoses / Procedures Referred By Contac t Referred To Contact MR IMAGING Diagnoses Malignant neoplasm of kidney excluding renal pelvis, unspecified laterality (HCC) Renal cell carcinoma, unspecified laterality (HCC) Procedures MRI BRAIN WO/W IVCON MRI BRAIN BRAIN STEM W/O W/CONTRAST MATERIAL Kenneth Chester MD [address] [place] [address] Mr Imaging Referral ID Status Reason Start Date Expiration Date Visits Requested Visits Authorized [id number] Authorized Auto-Generat ed Referral 07/14/2021 08/28/2021 1 1 Specialty Diagnoses / Procedures Referred By Contac t Referred To Contact CT IMAGING Diagnoses Malignant neoplasm of right kidney, except renal pelvis (HCC) Renal cell carcinoma, unspecified laterality (HCC) Procedures CT CHEST W IVCON DIAGNOSTIC COMPUTED TOMOGRAPHY THORAX W/CONTRAST Kenneth Chester MD [address] [place] [address] Ct Imaging Referral ID Status Reason Start Date Expiration Date V isits Requested Visits Authorized [id number] Closed Auto-Generate d Referral 07/14/2021 08/28/2021 1 1 Referral ID Status Reason Start Date Expiration Date V isits Requested Visits Authorized [id number] Closed Auto-Generate d Referral 07/14/2021 08/28/2021 1 1 Specialty Diagnoses / Procedures Referred By Contac t Referred To Contact CT IMAGING Diagnoses Malignant neoplasm of right kidney, except renal pelvis (HCC) Malignant neoplasm of kidney excluding renal pelvis, unspecified laterality (HCC) Procedures CT ABD/PEL W IVCON CT ABD & PELVIS W/CONTRAST Kenneth Chester MD [address] [place] [address] Ct Imaging Referral ID Status Reason Start Date Expiration Date Visits Requested Visits Authorized [id number] Pending Review Auto-Generat ed Referral 07/28/2021 08/27/2022 1 1 Specialty Diagnoses / Procedures Referred By Contac t Referred To Contact MR IMAGING Diagnoses Other specified disorders of kidney and ureter Procedures MRI KIDNEY WO/W IVCON MRI ABDOMEN W/O & W/CONTRAST MATERIAL Godfrey Ohara, KEYUR.CONCRETE MIXER OPERATOR HELPER [address], [address] [address] Mr Imaging Referral ID Status Reason Start Date Expiration Date Visits Requested Visits Authorized [id number] Pending Review Auto-Generat ed Referral 08/08/2021 09/07/2022 1 1 Specialty Diagnoses / Procedures Referred By Contac t Referred To Contact CT IMAGING Diagnoses Malignant neoplasm of right kidney, except renal pelvis (HCC) Malignant neoplasm of kidney excluding renal pelvis, unspecified laterality (HCC) Procedures CT CHEST W IVCON DIAGNOSTIC COMPUTED TOMOGRAPHY THORAX W/CONTRAST Stephany Ceballos PA-C [id number] [address] Imaging Referral ID Status Reason Start Date Expiration Date Visits Requested Visits Authorized [id number] Pending Review Auto-Generat ed Referral 08/21/2021 09/19/2022 1 1 Specialty Diagnoses / Procedures Referred By Contac t Referred To Contact CT IMAGING Diagnoses Malignant neoplasm of right kidney, except renal pelvis (HCC) Malignant neoplasm of kidney excluding renal pelvis, unspecified laterality (HCC) Procedures CT ABD/PEL W IVCON CT ABD & PELVIS W/CONTRAST Stephany Ceballos PA-C [id number] [address] Imaging Referral ID Status Reason Start Date Expiration Date Visits Requested Visits Authorized [id number] Pending Review Auto-Generat ed Referral 08/21/2021 09/19/2022 1 1 Specialty Diagnoses / Procedures Referred By Contac t Referred To Contact CT IMAGING Diagnoses Malignant neoplasm of right kidney, except renal pelvis (HCC) Procedures CT CHEST W IVCON DIAGNOSTIC COMPUTED TOMOGRAPHY THORAX W/CONTRAST Godfrey Ohara, FURNACE ERECTOR.CONCRETE MIXER OPERATOR HELPER [address], [address] [address] [address] Imaging Referral ID Status Reason Start Date Expiration Date Visits Requested Visits Authorized [id number] Pending Review Auto-Generat ed Referral 10/16/2021 09/26/2022 1 1 Specialty Diagnoses / Procedures Referred By Contac t Referred To Contact CT IMAGING Diagnoses Malignant neoplasm of right kidney, except renal pelvis (HCC) Procedures CT ABD/PEL W IVCON CT ABD & PELVIS W/CONTRAST Godfrey Ohara, FURNACE ERECTOR.CONCRETE MIXER OPERATOR HELPER [address] [place] [address] Ct Imaging Referral ID Status Reason Start Date Expiration Date Visits Requested Visits Authorized [id number] Pending Review Auto-Generat ed Referral 10/16/2021 09/26/2022 1 1 Specialty Diagnoses / Procedures Referred By Contac t Referred To Contact CT IMAGING Diagnoses SOB (shortness of breath) Procedures CT CHEST W IVCON PE DIAGNOSTIC COMPUTED TOMOGRAPHY THORAX W/CONTRAST Daksha Melo PA-C [address] [place] [address] Ct Imaging Referral ID Status Reason Start Date Expiration Date Visits Requested Visits Authorized [id number] Pending Review Auto-Generat ed Referral 09/02/2021 10/02/2022 1 1 Specialty Diagnoses / Procedures Referred By Contac t Referred To Contact CT IMAGING Diagnoses Malignant neoplasm of right kidney, except renal pelvis (HCC) Procedures CT CHEST W IVCON DIAGNOSTIC COMPUTED TOMOGRAPHY THORAX W/CONTRAST Adriana Hodge MD [address] [place] [address] Ct Imaging Referral ID Status Reason Start Date Expiration Date Visits Requested Visits Authorized [id number] Closed Financial Clearance Required - OON Payor [...] ABD & PELVIS W/CONTRAST Adriana Hodge MD [address] [place] [address] Ct Imaging Referral ID Status Reason Start Date Expiration Date Visits Requested Visits Authorized [id number] Closed Financial Clearance Required - OON Payor OON Notification Letter Clearance Not Met - Pt Rescheduled/Canc elled/Chose Not to Proceed OON/Self Pay Override 10/22/2021 11/21/2022 1 0 Specialty Diagnoses / Procedures Referred By Contac t Referred To Contact Diagnoses Renal cell carcinoma of right kidney (HCC) Procedures REFER TO PACC - PRE ANESTHESIA CONSULTATION CLINIC OFFICE/OUTPATIENT [facility] MDM 60-74 MINUTES Adriana Hodge MD [address] [place] [address] [place] [address] Referral ID Status Reason Start Date Expiration Date V isits Requested Visits Authorized [id number] Denied PCP Requested Referral 12/30/2021 12/30/2022 1 0 Specialty Diagnoses / Procedures Referred By Contac t Referred To Contact [facility] Diagnoses Renal cell carcinoma of right kidney (HCC) Procedures ECG COMPLETE ECG ROUTINE ECG W/LEAST 12 LDS W/I&R Adriana Hodge MD [address] [place] [address] [facility] [place] [address] Referral ID Status Reason Start Date Expiration Date V isits Requested Visits Authorized [id number] Denied Auto-Generate d Referral 12/30/2021 12/30/2022 1 0 Medications Administered Section Inactive Administered Medications - up to 3 most recent administrations Medication Order MAR Action Action Date Dose Rate Site INV CABOZANTINIB 40 mg TABLET ([facility] 1820/20-983) 40 mg, ORAL, ONCE, 1 dose, [...] Action Date Dose Rate Site INV NIVOLUMAB ([facility] 1820/20-983) 480 mg in NaCl 0.9% 100 [...] Rate Site INV CABOZANTINIB 20 mg TABLET ([facility] 1820/20-983) 20 mg, ORAL, ONCE, 1 dose, On Brenda 09/11/21 at 1500, Take ONE 20 mg tablet [...] CHRONIC HEART FAILURE AECHF AECHF AECHF S/P [facility] 04-13-22 CHF and AFIB (NO [...] CHRONIC HEART FAILURE AECHF AECHF AECHF S/P [facility] 04-13-22 CHF and AFIB (NO [...] carcinoma to bone Chief Complaint AECHF AECHF AECF S/P [facility] 04-13-22 CHF and AFIB (NO [...] 2 DM August 14, 2024 2:52p m AFIB September 25, 2024 6:24 am EORDERS Sandy 21st, 2025 3:19 pm Atrial fibrillation September 25, 2024 5:46 pm Amb Documentation September 26, 2024 7:49 am Amb Documentation September 26, 2024 7:51 am Chief Complaint Admit Date TYPE 2 DM June 05, 2024 1:3 2pm KIDNEY/BONE CANCER June 13, 2024 12:4 4pm INT LAB ORDERS June 20, 2024 12: 27pm 6 MO - LABS - REVIEW SCANS June 20, 2 025 1:05pm 6 M FU August 14, 2024 12:55 pm TYPE 2 DM August 14, 2024 2:52p m AFIB September 25, 2024 6:24 am EORDERS September 25, 2024 3:19 pm Atrial fibrillation September 25, 2024 5:46 pm Amb Documentation September 26, 2024 7:49 am Amb Documentation September 26, 2024 7:51 am 6-8 W FU October 02, 2024 2:24 pm Reason for Visit Admit Date Metastatic renal cell carcinoma to bone June 20, 2024 1:05pm Renal cell cancer June 20, 2024 1:0 5pm Chest pain August 14, 2024 12:55 pm Renal failure August 14, 2024 12:55 pm Atrial fibrillation August 14, 2024 12:55 pm CHF (congestive heart failure) August 14, 2024 12:55pm Hypertension August 14, 2024 12:55 pm Chest pain October 02, 2024 2:24 pm Renal failure October 02, 2024 2:24 pm Atrial fibrillation October 02, 2024 2:24 pm CHF (congestive heart failure) September 2:24pm Hypertension October 02, 2024 2:24 pm Chief Complaint Metastatic kidney cancer Additional [...] CREATED AUTHOR AUTHOR'S ORGANIZ ATION 12/10/2021 [facility] DATE CREATED AUTHOR AUTHOR'S ORGANIZ ATION 02/05/2022 [facility] DATE CREATED AUTHOR AUTHOR'S ORGANIZ ATION 03/17/2022 [facility] DATE CREATED AUTHOR AUTHOR'S ORGANIZ ATION 04/04/2022 [employer] DATE CREATED AUTHOR AUTHOR'S ORGANIZ ATION 04/25/2022 [facility] DATE CREATED AUTHOR AUTHOR'S ORGANIZ ATION 05/18/2022 [facility] DATE CREATED AUTHOR AUTHOR'S ORGANIZ ATION 07/19/2022 [facility] DATE CREATED AUTHOR AUTHOR'S ORGANIZ ATION 09/30/2024 [facility] (unrecognized sec tion and content) [...] Primary Care Provider Activ e Dr. Livan Ennis DO Emergency Provider Active Dr. Estelita Lu [...] Other Provider A ctive Dr. Jesús Che DO Attending Provider Active Team Status: Inactive Member Role Status Dates Dr. Jose Ramon Turner MD Primary Care Provider Activ e Dr. Livan Ennis DO Emergency Provider Active Dr. Estelita Lu MD Admit Provider, Other Provider Active Dr. Pau Wei MD Other Provider Active Dr. Carol Chiu DO Attending Provider Active Team Status: Active Member Role Status Dates Dr. Jose Ramon Turner MD Primary Care Provider Activ e Dr. Moises Gaona MD Attending Provider Active Team Status: Active Member Role Status Dates Dr. Jose Ramon Turner MD Primary Care Provider Activ e Dr. Kei Dunn DO Emergency Provider Active Dr. Dangelo Camacho MD Admit Provider, Other Provide r Active Dr. Carol Aram , DO Attending Provider, Other Provide r [...] Siri Harris MD EMERGENCY Active Start: Ap [facility] 2021 Family Physician Unavailable FAMILY Active Start: June 19, 2021 MIYA YANEZ Next of Kin Active Start: June 19, 2021 Teamsite Developer Relationship Specialty Start Date [place] Date [place] [address] [place] [address] PCP - General Internal Medicine 10/10/18 Teamsite Developer Relationship Specialty Start Date End Date Roc[place], [place] [address] [place] [address] PCP - General Internal Medicine 10/10/18 Teamsite Developer Relationship Specialty Start Date End Date Roc[place], [place] [address] [place] [address] PCP - General Internal Medicine 10/10/18 Teamsite Developer Relationship Specialty Start Date End Date Roc[place], [place] [address] [place] [address] PCP - General Internal Medicine 10/10/18 Teamsite Developer Relationship Specialty [place] [address] [place] [address] PCP - General Internal Medicine 10/10/18 Teamsite Developer Relationship Specialty [place] [address] [place] [address] PCP - General Internal Medicine 10/10/18 Teamsite Developer Relationship Specialty [place] [address] [place] [address] PCP - General Internal Medicine 10/10/18 Teamsite Developer Relationship Specialty Start [place] [address] [place] [address] PCP - General Internal Medicine 10/10/18 Teamsite Developer Relationship Specialty [place] [address] [place] [address] PCP - General Internal Medicine 10/10/18 Teamsite Developer Relationship Specialty Start [place] [address] [place] [address] PCP - General Internal Medicine 10/10/18 Teamsite Developer Relationship Specialty [place] [address] [place] [address] PCP - General Internal Medicine 10/10/18 Teamsite Developer Relationship Specialty [place] [address] [place] [address] PCP - General Internal Medicine 10/10/18 Teamsite Developer Relationship Specialty [place] [address] [place] [address] PCP - General Internal Medicine 10/10/18 Teamsite Developer Relationship Specialty Start [place] [address] [place] [address] PCP - General Internal Medicine 10/10/18 Teamsite Developer Relationship Specialty Start Date End Date Daksha Turner MD [address] [facility] [place] [address] PCP - General Family Practice 07/18/21 Teamsite Developer Relationship Specialty Start Date End Date Daksha Turner MD [address] [facility] [place] [place] [address] PCP - General Family Practice 07/18/21 Teamsite Developer Relationship Specialty Start Date End Date Daksha Turner MD [address] [facility] [place] [place] [address] PCP - General Family Practice 07/18/21 Teamsite Developer Relationship Specialty Start Date End Date Daksha Turner MD [address] [facility] [place] [place] [address] PCP - General Family Practice 07/18/21 Teamsite Developer Relationship Specialty Start Date End Date Daksha Turner MD [address] [facility] [place] [place] [address] PCP - General Family Practice 07/18/21 Teamsite Developer Relationship Specialty Start Date End Date Daksha Turner MD [address] [facility] [place] [place] [address] PCP - General Family Practice 07/18/21 Teamsite Developer Relationship Specialty Start Date End Date Daksha Turner MD [address] [facility] [place] [place] [address] PCP - General Family Practice 07/18/21 Teamsite Developer Relationship Specialty Start Date End Date Daksha Turner MD [address] [facility] [place] [place] [address] PCP - General Family Practice 07/18/21 Teamsite Developer Relationship Specialty Start Date End Date Daksha Turner MD [address] [facility] [place] [place] [address] PCP - General Family Practice 07/18/21 Teamsite Developer Relationship Specialty Start Date End Date Daksha Turner MD [address] [facility] [place] [place] [address] PCP - General Family Practice 07/18/21 Teamsite Developer Relationship Specialty Start Date End Date Daksha Turner MD [address] [facility] [place] [place] [address] PCP - General Family Practice 07/18/21 Teamsite Developer Relationship Specialty Start Date End Date Daksha Turner MD [address] [facility] [place] [place] [address] PCP - General Family Practice 07/18/21 Teamsite Developer Relationship Specialty Start Date End Date Daksha Turner MD [address] [facility] [place] [place] [address] PCP - General Family Practice 07/18/21 Teamsite Developer Relationship Specialty Start Date End Date Daksha Turner MD [address] [facility] [place] [place] [address] PCP - General Family Practice 07/18/21 Teamsite Developer Relationship Specialty Start Date End Date Daksha Turner MD [address] [facility] [place] [place] [address] PCP - General Family Practice 07/18/21 Teamsite Developer Relationship Specialty Start Date End Date Daksha Turner MD [address] [place] [address] PCP - General Family Practice 07/18/21 Teamsite Developer Relationship Specialty Start Date End Date Daksha Turner MD [address] [place] [address] PCP - General Family Practice 07/18/21 Teamsite Developer Relationship Specialty Start Date End Date Daksha Turner MD [address] [place] [address] PCP - General Family Practice 07/18/21 Teamsite Developer Relationship Specialty Start Date End Date Daksha Turner MD [address] [place] [address] PCP - General Family Practice 07/18/21 Teamsite Developer Relationship Specialty Start Date End Date Daksha Turner MD [address] [place] [address] PCP - General Family Practice 07/18/21 Teamsite Developer Relationship Specialty Start Date End Date Daksha Turner MD [address] [place] [address] PCP - General Family Practice 07/18/21 Teamsite Developer Relationship Specialty Start Date End Date Daksha Turner MD [address] [place] [address] PCP - General Family Practice 07/18/21 Teamsite Developer Relationship Specialty Start Date End Date Daksha Turner MD [address] [place] [address] PCP - General Family Practice 07/18/21 Teamsite Developer Relationship Specialty Start Date End Date Daksha Turner MD [address] [place] [address] PCP - General Family Practice 07/18/21 Golias, Sary, RESERVE OFFICER Virtualization Engineer Oncology 08/11/21 Teamsite Developer Relationship Specialty Start Date End Date Daksha Turner MD [address] [place], [place] [address] [phone] PCP - General Family Practice 07/18/21 Golias, Sary, RESERVE OFFICER Virtualization Engineer Oncology 08/11/21 Teamsite Developer Relationship Specialty Start Date End Date Daksha Turner MD [address] [place] [address] PCP - General Family Practice 07/18/21 Golias, Sary, RESERVE OFFICER Virtualization Engineer Oncology 08/11/21 Teamsite Developer Relationship Specialty Start Date End Date Daksha Turner MD [address] [place] [address] PCP - General Family Practice 07/18/21 Golias, Sary, RESERVE OFFICER Virtualization Engineer Oncology 08/11/21 Teamsite Developer Relationship Specialty Start Date End Date Daksha Turner MD [address] [place] [address] PCP - General Family Practice 07/18/21 Golias, Sary, RESERVE OFFICER Virtualization Engineer Oncology 08/11/21 Teamsite Developer Relationship Specialty Start Date End Date Daksha Turner MD [address] [place] [address] PCP - General Family Practice 07/18/21 Golias, Sary, RESERVE OFFICER Virtualization Engineer Oncology 08/11/21 Lalo Black MD [address] [place] [address] Primary Staff Physician Cardiology 08/19/21 Teamsite Developer Relationship Specialty Start Date End Date Daksha Turner MD [address] [place], [place] [address] PCP - General Family Practice 07/18/21 Sary Jonas, [facility] Virtualization Engineer Oncology 08/11/21 Lalo Black MD [address] [place] [address] Primary Staff Physician Cardiology 08/19/21 Teamsite Developer Relationship Specialty Start Date End Date Daksha Turner MD [address] [place], [place] [address] PCP - General Family Practice 07/18/21 Sary Jonas, [facility] Virtualization Engineer Oncology 08/11/21 Lalo Black MD [address] [place] [address] Primary Staff Physician Cardiology 08/19/21 Teamsite Developer Relationship Specialty Start Date End Date Daksha Turner MD [address] [place], [place] [id number] PCP - General Family Practice 07/18/21 Sary Jonas, [facility] Virtualization Engineer Oncology 08/11/21 Lalo Black MD [address] [place] [address] Primary Staff Physician Cardiology 08/19/21 Teamsite Developer Relationship Specialty Start Date End Date Daksha Turner MD [address] [place], [place] [id number] PCP - General Family Practice 07/18/21 Sary Jonas, [facility] Virtualization Engineer Oncology 08/11/21 Lalo Black MD [address] [place] [address] Primary Staff Physician Cardiology 08/19/21 Teamsite Developer Relationship Specialty Start Date End Date Ranney, Christopher B, MD [address] [place], [place] [id number] PCP - General Family Practice 07/18/21 Sary Jonas, [facility] Virtualization Engineer Oncology 08/11/21 Lalo Black MD [address] [place] [address] Primary Staff Physician Cardiology 08/19/21 Teamsite Developer Relationship Specialty Start Date End Date Daksha Turner MD [address] [place], [place] [id number] PCP - General Family Practice 07/18/21 Sary Jonas, [facility] Virtualization Engineer Oncology 08/11/21 Lalo Black MD [address] [place] [address] Primary Staff Physician Cardiology 08/19/21 Teamsite Developer Relationship Specialty Start Date End Date Daksha Turner MD [address] [place], [place] [id number] PCP - General Family Practice 07/18/21 Sary Jonas, [facility] Virtualization Engineer Oncology 08/11/21 Lalo Black MD [address] [place] [address] Primary Staff Physician Cardiology 08/19/21 Teamsite Developer Relationship Specialty Start Date End Date Daksha Turner MD [address] [place], [place] [id number] PCP - General Family Practice 07/18/21 Sary Jonas, [facility] Virtualization Engineer Oncology 08/11/21 Lalo Black MD [address] [place] [address] Primary Staff Physician Cardiology 08/19/21 Teamsite Developer Relationship Specialty Start Date End Date Daksha Turner MD [address] [place], [place] [id number] PCP - General Family Practice 07/18/21 Sary Jonas, [facility] Virtualization Engineer Oncology 08/11/21 Lalo Black MD [address] [place] [address] Primary Staff Physician Cardiology 08/19/21 Teamsite Developer Relationship Specialty Start Date End Date Daksha Turner MD [address] [place], [place] [id number] PCP - General Family Practice 07/18/21 Sary Jonas, [facility] Virtualization Engineer Oncology 08/11/21 Lalo Black MD [address] [place] [address] Primary Staff Physician Cardiology 08/19/21 Rahul Knight, RN Research Nurse 09/03/21 Teamsite Developer Relationship Specialty Start Date End Date Daksha Turner MD [address] [place], [place] [phone] PCP - General Family Practice 07/18/21 Sary Jonas, [facility] Virtualization Engineer Oncology 08/11/21 Lalo Black MD [address] [place] [address] Primary Staff Physician Cardiology 08/19/21 Rahul Knight, RN Research Nurse 09/03/21 Teamsite Developer Relationship Specialty Start Date End Date Daksha Turner MD [address] [place], [place] [id number] PCP - General Family Practice 07/18/21 Sary Jonas, [facility] Virtualization Engineer Oncology 08/11/21 Lalo Black MD [address] [place] [address] Primary Staff Physician Cardiology 08/19/21 Rahul Knight, RN Research Nurse 09/03/21 Teamsite Developer Relationship Specialty Start Date End Date Daksha Turner MD [address] [place] [address] PCP - General Family Practice 07/18/21 Sary Jonas, [facility] Virtualization Engineer Oncology 08/11/21 Lalo Black MD [address] [place] [address] Primary Staff Physician Cardiology 08/19/21 Rahul Knight, RN Research Nurse 09/03/21 Teamsite Developer Relationship Specialty Start Date End Date Daksha Turner MD [address] [place] [address] PCP - General Family Practice 07/18/21 Sary Jonas, [facility] Virtualization Engineer Oncology 08/11/21 Lalo Black MD [address] [place] [address] Primary Staff Physician Cardiology 08/19/21 Rahul Knight, RN Research Nurse 09/03/21 Teamsite Developer Relationship Specialty Start Date End Date Daksha Turner MD [address] [place], [place] [id number] PCP - General Family Practice 07/18/21 Sary Jonas, [facility] Virtualization Engineer Oncology 08/11/21 Lalo Black MD [address] [place] [address] Primary Staff Physician Cardiology 08/19/21 Rahul Knight, RN Research Nurse 09/03/21 Safia Carr, [facility] [address] [place] [address] Transitional Care Pharmacist Pharmacy 09/29/21 10/30/21 Teamsite Developer Relationship Specialty Start Date End Date Daksha Turner MD [address] [place], [place] [address] PCP - General Family Practice 07/18/21 Sary Jonas, [facility] Virtualization Engineer Oncology 08/11/21 Lalo Black MD [address] [place], [place] [phone] Primary Staff Physician Cardiology 08/19/21 Rahul Knight, RN Research Nurse 09/03/21 Safia Carr, [facility] [address] [place] [address] Transitional Care Pharmacist Pharmacy 09/29/21 10/30/21 Teamsite Developer Relationship Specialty Start Date End Date Daksha Turner MD [address] [place] [address] PCP - General Family Practice 07/18/21 Sary Jonas, [facility] Virtualization Engineer Oncology 08/11/21 Lalo Black MD [address] [place] [address] Primary Staff Physician Cardiology 08/19/21 Rahul Knight, RN Research Nurse 09/03/21 Teamsite Developer Relationship Specialty Start Date End Date Daksha Turner MD [address] [place], [place] [id number] PCP - General Family Practice 07/18/21 Sary Jonas, [facility] Virtualization Engineer Oncology 08/11/21 Lalo Black MD [address] [place] [address] Primary Staff Physician Cardiology 08/19/21 Rahul Knight, RN Research Nurse 09/03/21 Safia Carr, [facility] [address] [place], [place] [phone] Transitional Care Pharmacist Pharmacy 09/29/21 10/30/21 Teamsite Developer Relationship Specialty Start Date End Date Daksha Turner MD [address] [place], [place] [id number] PCP - General Family Practice 07/18/21 [facility] Virtualization Engineer Oncology 08/11/21 Lalo Black MD [address] [place], [place] [id number] Primary Staff Physician Cardiology 08/19/21 Rahul Knight, RN Research Nurse 09/03/21 Safia Carr, [facility] [address] [place], [place] [phone] Transitional Care Pharmacist Pharmacy 09/29/21 10/30/21 Teamsite Developer Relationship Specialty Start Date End Date Daksha Turner MD [address] [place], [place] [id number] PCP - General Family Practice 07/18/21 [facility] Virtualization Engineer Oncology 08/11/21 Lalo Black MD [address] [place] [address] Primary Staff Physician Cardiology 08/19/21 Rahul Knight, RN Research Nurse 09/03/21 Safia Carr, [facility] [address] [place], [place] [id number] Transitional Care Pharmacist Pharmacy 09/29/21 10/30/21 Teamsite Developer Relationship Specialty Start Date End Date Daksha Turner MD [address] [facility] [place] [id number] PCP - General Family Practice 07/18/21 Sary Jonas, [facility] Virtualization Engineer Oncology 08/11/21 Lalo Black MD [address] [place], [place] [id number] Primary Staff Physician Cardiology 08/19/21 Rahul Knight, RN Research Nurse 09/03/21 Safia Carr, [facility] [address] [place] [address] Transitional Care Pharmacist Pharmacy 09/29/21 10/30/21 Teamsite Developer Relationship Specialty Start Date End Date Daksha Turner MD [address] [place] [address] PCP - General Family Practice 07/18/21 Sary Jonas, [facility] Virtualization Engineer Oncology 08/11/21 Lalo Black MD [address] [place], [place] [id number] Primary Staff Physician Cardiology 08/19/21 Rahul Knight, RN Research Nurse 09/03/21 Safia Carr, [facility] [address] [place] [address] Transitional Care Pharmacist Pharmacy 09/29/21 10/30/21 Teamsite Developer Relationship Specialty Start Date End Date Daksha Turner MD [address] [place] [address] PCP - General Family Practice 07/18/21 Sary Jonas, [facility] Virtualization Engineer Oncology 08/11/21 Lalo Black MD [address] [place] [address] Primary Staff Physician Cardiology 08/19/21 Rahul Knight, RN Research Nurse 09/03/21 Teamsite Developer Relationship Specialty Start Date End Date Daksha Turner MD [address] [place], [place] [id number] PCP - General Family Practice 07/18/21 Sary Jonas, [facility] Virtualization Engineer Oncology 08/11/21 Lalo Black MD [address] [place], [place] [id number] Primary Staff Physician Cardiology 08/19/21 aRhul Knight, RN Research Nurse 09/03/21 Safia Carr, [facility] [address] [place], [place] [phone] Transitional Care Pharmacist Pharmacy 09/29/21 10/30/21 Teamsite Developer Relationship Specialty Start Date End Date Daksha Turner MD [address] [place], [place] [phone] PCP - General Family Practice 07/18/21 Sary Jonas, [facility] Virtualization Engineer Oncology 08/11/21 Lalo Black MD [address] [place], [place] [phone] Primary Staff Physician Cardiology 08/19/21 Rahul Knight, RN Research Nurse 09/03/21 Teamsite Developer Relationship Specialty Start Date End Date Daksha Turner MD [address] [place], [place] [id number] PCP - General Family Practice 07/18/21 Sary Jonas, [facility] Virtualization Engineer Oncology 08/11/21 Lalo Black MD [address] [place], [place] [phone] Primary Staff Physician Cardiology 08/19/21 Rahul Knight, RN Research Nurse 09/03/21 Safia Carr, [facility] [address] [place] [address] Transitional Care Pharmacist Pharmacy 09/29/21 10/30/21 Teamsite Developer Relationship Specialty Start Date End Date Daksha Turner MD [address] [place], [place] [id number] PCP - General Family Practice 07/18/21 Sary Jonas, [facility] Virtualization Engineer Oncology 08/11/21 Lalo Black MD [address] [place] [address] Primary Staff Physician Cardiology 08/19/21 Rahul Knight, RN Research Nurse 09/03/21 Teamsite Developer Relationship Specialty Start Date End Date Daksha Turner MD [address] [place] [id number] PCP - General Family Practice 07/18/21 Sary Jonas, [facility] Virtualization Engineer Oncology 08/11/21 Lalo Black MD [address] [place], [place] [phone] Primary Staff Physician Cardiology 08/19/21 Rahul Knight, RN Research Nurse 09/03/21 Teamsite Developer Relationship Specialty Start Date End Date Daksha Turner MD [address] [place], [place] [id number] PCP - General Family Practice 07/18/21 [facility] Virtualization Engineer Oncology 08/11/21 Lalo Black MD [address] [place] [address] Primary Staff Physician Cardiology 08/19/21 Rahul Knight, RN Research Nurse 09/03/21 Teamsite Developer Relationship Specialty Start Date End Date Daksha Turner MD [address] [place], [place] [id number] PCP - General Family Medicine 07/18/21 Sary Jonas, [facility] Virtualization Engineer Oncology 08/11/21 Lalo Black MD [address] [place] [address] Primary Staff Physician Cardiology 08/19/21 Rahul Knight, RN Research Nurse 09/03/21 Teamsite Developer Relationship Specialty Start Date End Date Daksha Turner MD [address] [place], [place] 344161 PCP - General Family Medicine 07/18/21 Sary Jonas, [facility] Virtualization Engineer Oncology 08/11/21 Lalo Black MD [address] [place] [address] Primary Staff Physician Cardiology 08/19/21 Rahul Knight, RN Research Nurse 09/03/21 Teamsite Developer Relationship Specialty Start Date End Date Daksha Turner MD [address] [place], [place] [phone] PCP - General Family Medicine 07/18/21 Sary Jonas, [facility] Virtualization Engineer Oncology 08/11/21 Lalo Black MD [address] [place] [address] Primary Staff Physician Cardiology 08/19/21 Rahul Knight, RN Research Nurse 09/03/21 Haylee Wilburn MD [address] [facility] [place] [address] Oncology 12/08/21 Alfredo Xavier MD [address] [facility] [place] [phone] Radiation Oncology 12/08/21 Teamsite Developer Relationship Specialty Start Date End Date Daksha Turner MD [address] [place], [place] [id number] PCP - General Family Medicine 07/18/[address] [facility] Virtualization Engineer Oncology 08/11/21 Lalo Black MD [address] [place] [address] Primary Staff Physician Cardiology 08/19/21 Rahul Knight, RN Research Nurse 09/03/21 Haylee Wilburn MD [address] [employer] [place], [place] [address] Oncology 12/08/21 [place] [address] [place] [phone] Radiation Oncology 12/08/21 Teamsite Developer Relationship Specialty Start Date End Date Daksha Turner MD [address] [facility] [place], [place] [phone] PCP - General Family Medicine 07/18/[address] [facility] Virtualization Engineer Oncology 08/11/21 Lalo Black MD [address] [place] [address] Primary Staff Physician Cardiology 08/19/21 Rahul Knight, RN Research Nurse 09/03/21 Haylee Wilburn MD [address] [place] [address] Oncology 12/08/21 [place] [address] [place] [phone] Radiation Oncology 12/08/21 Teamsite Developer Relationship Specialty Start Date End Date Daksha Turner MD [address] [facility] [place], [place] [phone] PCP - General Family Medicine 07/18/[address] [facility] Virtualization Engineer Oncology 08/11/21 Lalo Black MD [address] [place] [address] Primary Staff Physician Cardiology 08/19/21 Rahul Knight, RN Research Nurse 09/03/21 Haylee [place] MD [address] [facility] [place] [address] Oncology 12/08/21 Alfredo Xavier MD [address] [place] [address] Radiation Oncology 12/08/21 Teamsite Developer Relationship Specialty Start Date End Date Daksha Turner MD [address] [place], [place] [id number] PCP - General Family Medicine 07/18/[address] [facility] Virtualization Engineer Oncology 08/11/21 Lalo Black MD [address] [place] [address] Primary Staff Physician Cardiology 08/19/21 Rahul Knight, RN Research Nurse 09/03/21 Haylee Wilburn MD [address] [place] [address] Oncology 12/08/21 Alfredo Xavier MD [address] [facility] [place] [address] Radiation Oncology 12/08/21 Teamsite Developer Relationship Specialty Start Date End Date Daksha Turner MD [address] [place], [place] [id number] PCP - General Family Medicine 07/18/[address] [facility] Virtualization Engineer Oncology 08/11/21 Lalo Black MD [address] [place] [address] Primary Staff Physician Cardiology 08/19/21 Rahul Knight, RN Research Nurse 09/03/21 Haylee Wilburn MD [address] [place] [address] Oncology 12/08/21 [place] [address] [place] [address] Radiation Oncology 12/08/21 Teamsite Developer Relationship Specialty Start Date End Date Daksha Turner MD [address] [facility] [place], [place] [id number] PCP - General Family Medicine 07/18/21 Sary Jonas, [facility] Virtualization Engineer Oncology 08/11/21 Lalo Black MD [address] [place] [address] Primary Staff Physician Cardiology 08/19/21 Rahul Knight, RN Research Nurse 09/03/21 [place] [address] [place] [address] Oncology 12/08/21 [place] [address] [place] [phone] Radiation Oncology 12/08/21 Teamsite Developer Relationship Specialty Start Date End Date Daksha Turner MD [address] [facility] [place] [place], [place] [phone] PCP - General Family Medicine 07/18/21 Sary Jonas, [facility] Virtualization Engineer Oncology 08/11/21 Lalo Black MD [address] [place] [address] Primary Staff Physician Cardiology 08/19/21 Rahul Knight, RN Research Nurse 09/03/21 Haylee Wilburn MD [address] [place] [address] Oncology 12/08/21 [place] [address] [place] [address] [place] [address] Radiation Oncology 12/08/21 Teamsite Developer Relationship Specialty Start Date End Date Daksha Turner MD [address] [place] [address] PCP - General Family Medicine 07/18/21 Sary Jonas, [facility] Virtualization Engineer Oncology 08/11/21 Lalo Black MD [address] [place] [address] Primary Staff Physician Cardiology 08/19/21 Rahul Knight, RN Research Nurse 09/03/21 Haylee Wilburn MD [address] [place], [place] [phone] Oncology 12/08/21 [place] [address] [place] [address] [place] [address] Radiation Oncology 12/08/21 Teamsite Developer Relationship Specialty Start Date End Date Daksha Turner MD [address] [place] [address] PCP - General Family Medicine 07/18/21 Sary Jonas, [facility] Virtualization Engineer Oncology 08/11/21 Lalo Black MD [address] [place], [place] [id number] Primary Staff Physician Cardiology 08/19/21 Rahul Knight, RN Research Nurse 09/03/21 Haylee Wilburn MD [address] [place], [place] [phone] Oncology 12/08/21 Alfredo Xavier MD [address] [place] [address] Radiation Oncology 12/08/21 Sayra Tello MD [address] [place], [place] [phone] Cardiology 02/12/22 Teamsite Developer Relationship Specialty Start Date End Date Daksha Turner MD [address] [facility] [place], [place] [phone] PCP - General Family Medicine 07/18/21 Sary Jonas, [facility] Virtualization Engineer Oncology 08/11/21 Lalo Black MD [address] [place], [place] [phone] Primary Staff Physician Cardiology 08/19/21 Rahul Knight, RN Research Nurse 09/03/21 Haylee Wilburn MD 13[address] [facility] [place], [place] [phone] Oncology 12/08/21 Alfredo Xavier MD [address] [place] [address] Radiation Oncology 12/08/21 Sayra Tello MD [address] [place] [address] Cardiology 02/12/22 Teamsite Developer Relationship Specialty Start Date End Date Daksha Turner MD [address] [place], [place] [phone] PCP - General Family Medicine 07/18/21 Sary Jonas, [facility] Virtualization Engineer Oncology 08/11/21 Lalo Black MD [address] [place] [address] Primary Staff Physician Cardiology 08/19/21 Rahul Knight, RN Research Nurse 09/03/21 Haylee Wilburn MD [address] [place], [place] [phone] Oncology 12/08/21 Alfredo Xavier MD [address] [place] [address] Radiation Oncology 12/08/21 Sayra Tello MD [address] [place] [phone] Cardiology 02/12/22 Teamsite Developer Relationship Specialty Start Date End Date Daksha Turner MD [address] [place], [place] [phone] PCP - General Family Medicine 07/18/21 Sary Jonas RESERVE OFFICER Virtualization Engineer Oncology 08/11/21 Lalo Black MD [address] [place] [address] Primary Staff Physician Cardiology 08/19/21 Rahul Knight, RN Research Nurse 09/03/21 Haylee Wilburn MD [address] [place], [place] [phone] Oncology 12/08/21 Alfredo Xavier MD [address] [place] [address] Radiation Oncology 12/08/21 Sayra Tello MD [address] [place], [place] [phone] Cardiology 02/12/22 Teamsite Developer Relationship Specialty Start Date End Date Daksha Turner MD [address] [facility] [place] [address] PCP - General Family Medicine 07/18/21 Sary Jonas, [facility] Virtualization Engineer Oncology 08/11/21 Lalo Black MD [address] [place] [address] Primary Staff Physician Cardiology 08/19/21 Rahul Knight, RN Research Nurse 09/03/21 Haylee Wilburn MD [address] [place], [place] [phone] Oncology 12/08/21 [place] [address] [place] [address] [place] [address] Radiation Oncology 12/08/21 Sayra Tello MD [address] [facility] [place] [address] Cardiology 02/12/22 Teamsite Developer Relationship Specialty Start Date End Date Daksha Turner MD [address] [place] [address] PCP - General Family Medicine 07/18/21 Sary Jonas, [facility] Virtualization Engineer Oncology 08/11/21 Lalo Black MD [address] [place] [address] Primary Staff Physician Cardiology 08/19/21 Rahul Knight, RN Research Nurse 09/03/21 Haylee Wilburn MD [address] [place], [place] [phone] Oncology 12/08/21 Alfredo Xavier MD [address] [facility] [place] [address] Radiation Oncology 12/08/21 Sayra Tello MD [address] [place] [address] Cardiology 02/12/22 Teamsite Developer Relationship Specialty Start Date End Date Daksha Turner MD [address] [place] [address] PCP - General Family Medicine 07/18/21 Sary Jonas, [facility] Virtualization Engineer Oncology 08/11/21 Lalo Black MD [address] [place], [place] [phone] Primary Staff Physician Cardiology 08/19/21 Rahul Knight, RN Research Nurse 09/03/21 Haylee Wilburn MD [address] [place] [address] Oncology 12/08/21 Alfredo Xavier MD [address] [facility] [place] [phone] Radiation Oncology 12/08/21 Sayra Tello MD [address] [place] [address] Cardiology 02/12/22 Teamsite Developer Relationship Specialty Start Date End Date Daksha Turner MD [address] [place] [address] PCP - General Family Medicine 07/18/21 Sary Jonas, [facility] Virtualization Engineer Oncology 08/11/21 Lalo Black MD [address] [place] [address] Primary Staff Physician Cardiology 08/19/21 Rahul Knight, RN Research Nurse 09/03/21 Haylee Wilburn MD [address] [place] [address] Oncology 12/08/21 Alfredo Xavier MD [address] [place] [address] Radiation Oncology 12/08/21 Sayra Tello MD [address] [place] [address] Cardiology 02/12/22 Teamsite Developer Relationship Specialty Start Date End Date Daksha Turner MD [address] [place], [place] [phone] PCP - General Family Medicine 07/18/21 Sary Jonas, [facility] Virtualization Engineer Oncology 08/11/21 Lalo Black MD [address] [place] [address] Primary Staff Physician Cardiology 08/19/21 Rahul Knight, RN Research Nurse 09/03/21 Haylee Wilburn MD [address] [facility] [place] [address] Oncology 12/08/21 Alfredo Xavier MD [address] [facility] [place] [phone] Radiation Oncology 12/08/21 Sayra Tello MD [address] [place] [address] Cardiology 02/12/22 Teamsite Developer Relationship Specialty Start Date End Date Daksha Turner MD [address] [place], [place] [phone] PCP - General Family Medicine 07/18/21 Sary Jonas, [facility] Virtualization Engineer Oncology 08/11/21 Lalo Black MD [address] [place], [place] [phone] Primary Staff Physician Cardiology 08/19/21 Rahul Knight, RN Research Nurse 09/03/21 Haylee Wilburn MD [address] [place], [place] [phone] Oncology 12/08/21 Alfredo Xavier MD [address] [facility] [place] [address] Radiation Oncology 12/08/21 Sayra Tello MD [address] [place] [address] Cardiology 02/12/22 Teamsite Developer Relationship Specialty Start Date End Date Daksha Turner MD [address] [facility] [place], [place] [phone] PCP - General Family Medicine 07/18/21 Sary Jonas, [facility] Virtualization Engineer Oncology 08/11/21 Lalo Black MD [address] [place] [address] Primary Staff Physician Cardiology 08/19/21 Rahul Knight, RN Research Nurse 09/03/21 Haylee Wilburn MD [address] [place], [place] [phone] Oncology 12/08/21 Alfredo Xavier MD [address] [place] [address] Radiation Oncology 12/08/21 Sayra Tello MD [address] [place], [place] [phone] Cardiology 02/12/22 Teamsite Developer Relationship Specialty Start Date End Date Daksha Turner MD [address] [facility] [place], [place] [phone] PCP - General Family Medicine 07/18/21 Sary Jonas, [facility] Virtualization Engineer Oncology 08/11/21 Lalo Black MD [address] [place] [address] Primary Staff Physician Cardiology 08/19/21 Rahul Knight, RN Research Nurse 09/03/21 Haylee Wilburn MD [address] [place] [place], [place] [phone] Oncology 12/08/21 Alfredo Xavier MD [address] [place] [address] Radiation Oncology 12/08/21 Sayra Tello MD [address] [place], [place] [phone] Cardiology 02/12/22 Teamsite Developer Relationship Specialty Start Date End Date Daksha Turner MD [address] [place] [id number] PCP - General Family Medicine 07/18/21 Sary Jonas, [facility] Virtualization Engineer Oncology 08/11/21 Lalo Black MD [address] [place] [address] Primary Staff Physician Cardiology 08/19/21 Rahul Knight, RN Research Nurse 09/03/21 Haylee Wilburn MD [address] [place], [place] [phone] Oncology 12/08/21 Alfredo Xavier MD [address] [place] [phone] Radiation Oncology 12/08/21 Sayra Tello MD [address] [place] [address] Cardiology 02/12/22 Team Status: Active Member Role [...] Primary Care Provider Activ e Dr. Livan Ennis DO Emergency Provider Active Dr. Estelita Lu MD Admit Provider, Attending Prov ider Active Team Status: Inactive Member Role Status Dates Dr. Jose Ramon Turner MD Primary Care Provider, Refe rring Provider Active Primo GEE, PA Attending Provider Active Team Status: Inactive Member Role Status Dates Dr. Jose Ramon Turner MD Primary Care Provider Activ e Dr. Isidra Chiu , Attending Provider, Referring P rogloria Active Teamsite Developer Relationship Specialty Start Date End Date Daksha Turner MD [address] [place] [address] PCP - General Family Medicine 07/18/21 Sary Jonas LSW Virtualization Engineer Oncology 08/11/21 Lalo Black MD [address] [place], [place] [phone] Primary Staff Physician Cardiology 08/19/21 Rahul Knight, RN Research Nurse 09/03/21 Haylee Wilburn MD [address] [place] [address] Oncology 12/08/21 Alfredo Xavier MD [address] [place] [address] Radiation Oncology 12/08/21 Teamsite Developer Relationship Specialty Start Date End Date Daksha Turner MD [address] [place] [address] PCP - General Family Medicine 07/18/21 Sary Jonas RESERVE OFFICER Virtualization Engineer Oncology 08/11/21 Lalo Black MD [address] [place], [place] [phone] Primary Staff Physician Cardiology 08/19/21 Rahul Knight, RN Research Nurse 09/03/21 Haylee Wilburn MD [address] [place], [place] [phone] Oncology 12/08/21 Alfredo Xavier MD [address] [place] [address] Radiation Oncology 12/08/21 Sayra Tello MD [address], [address] [place] [address] Cardiology 02/12/22 Team Status: Active Member Role [...] Status: Inactive Member Role Status Dates Dr. Daskha Turner MD Primary Care Provider Acti ve [...] 2024 End: August 14, 2024 Gini Couch CHAIR SPRING ASSEMBLER, CHAIR SPRING ASSEMBLER-C Attending Provider Active Start: August 14, 2024 End: August 14, 2024 Team Status: Inactive Member Role Status Dates Dr. Daksha Turner MD Primary Care Provider Acti ve Start: August 14, 2024 End: August 14, 2024 Gini Couch CHAIR SPRING ASSEMBLER, CHAIR SPRING ASSEMBLER-C Attending Provider Active Start: August 14, 2024 End: August 14, 2024 Gini Couch CHAIR SPRING ASSEMBLER, CHAIR SPRING ASSEMBLER-C Referring Provider Active Start: August 14, 2024 [...] 2024 End: August 14, 2024 Gini Couch CHAIR SPRING ASSEMBLER, CHAIR SPRING ASSEMBLER-C Attending Provider Active Start: August 14, 2024 End: August 14, 2024 Team Status: Inactive Member Role/Relationship Status Dates Dr. Daksha Turner MD Primary Care Provider Acti ve Start: August 14, 2024 End: August 14, 2024 Gini Couch CHAIR SPRING ASSEMBLER, CHAIR SPRING ASSEMBLER-C Attending Provider Active Start: August 14, 2024 End: August 14, 2024 Gini Couch CHAIR SPRING ASSEMBLER, CHAIR SPRING ASSEMBLER-C Referring Provider Active Start: August 14, 2024 [...] August 14, 2024 End: September 04, 2024 Team Status: Active Member Role/Relationship Status Dates Dr. Daksha Turner MD Primary Care Provider Acti ve Start: September 24, 2024 Dr. Moises Gaona MD Attending Provider Active S tart: September 24, 2024 Team Status: Active Member Role/Relationship Status Dates Dr. Daksha Turner MD Primary Care Provider Acti ve Start: September 25, 2024 Gini Couch CHAIR SPRING ASSEMBLER, CHAIR SPRING ASSEMBLER-C Attending Provider Active Start: September 25, 2024 Gini Couch CHAIR SPRING ASSEMBLER, CHAIR SPRING ASSEMBLER-C Referring Provider Active Start: September 25, 2024 Team Status: Inactive Member Role/Relationship Status Dates Dr. Daksha Turner MD Primary Care Provider Acti ve Start: September 25, 2024 End: September 25, 2024 Dr. Daksha Turner MD Attending Provider Active Start: September 25, 2024 End: September 25, 2024 Dr. Daksha Turner MD Referring Provider Active Start: September 25, 2024 End: September 25, 2024 Team Status: Active Member Role/Relationship Status Dates Dr. Daksha Turner MD Primary Care Provider Acti ve Start: September 25, 2024 Gini Couch CHAIR SPRING ASSEMBLER, CHAIR SPRING ASSEMBLER-C Referring Provider Active Start: September 25, 2024 Gini Couch CHAIR SPRING ASSEMBLER, CHAIR SPRING ASSEMBLER-C Other Provider Active Sta rt: September 25, 2024 Dr. Moises Gaona MD Attending Provider Active S tart: September 25, 2024 Team Status: Active Member Role/Relationship Status Dates Dr. Daksha Turner MD Primary Care Provider Acti ve Start: September 26, 2024 Gini Couch CHAIR SPRING ASSEMBLER, CHAIR SPRING ASSEMBLER-C Attending Provider Active Start: September 26, 2024 Team Status: Active Member Role/Relationship Status Dates Dr. Daksha Turner MD Primary Care Provider Acti ve Start: September 26, 2024 Gini Couch CHAIR SPRING ASSEMBLER, CHAIR SPRING ASSEMBLER-C Attending Provider Active Start: September 26, 2024 Team Status: Inactive Member Role/Relationship Status Dates Dr. Daksha Turner MD Primary Care Provider Acti ve Start: September 25, 2024 End: September 25, 2024 Gini Couch CHAIR SPRING ASSEMBLER, CHAIR SPRING ASSEMBLER-C Attending Provider Active Start: September 25, 2024 End: September 25, 2024 Gini Couch CHAIR SPRING ASSEMBLER, CHAIR SPRING ASSEMBLER-C Referring Provider Active Start: September 25, 2024 End: September 25, 2024 Team Status: Inactive Member Role/Relationship Status Dates Dr. Daksha Turner MD Primary Care Provider Acti ve Start: October 02, 2024 End: October 02, 2024 Dr. Daksha Turner MD Referring Provider Active Start: October 02, 2024 End: October 02, 2024 Gini Couch CHAIR SPRING ASSEMBLER, CHAIR SPRING ASSEMBLER-C Attending Provider Active Start: October 02, 2024 End: October 02, 2024 Goals (unrecognized section and content) Goals [...] or prosecute any alcohol or drug abuse patient.[facility] HospitalIn the event this information is protected by the Federal Confidentiality of Alcohol and Drug Abuse Patient Records regulations: The Federal rules restrict any use of the information to criminally investigate or prosecute any alcohol or drug abuse patient.[facility] HospitalIn the event this information is protected by the Federal Confidentiality of Alcohol and Drug Abuse Patient Records regulations: The Federal rules restrict any use of the information to criminally investigate or prosecute any alcohol or drug abuse patient.[facility] HospitalIn the event this information is protected by the Federal Confidentiality of Alcohol and Drug Abuse Patient Records regulations: The Federal rules restrict any use of the information to criminally investigate or prosecute any alcohol or drug abuse patient.[facility] HospitalIn the event this information is protected by the Federal Confidentiality of Alcohol and Drug Abuse Patient Records regulations: The Federal rules restrict any use of the information to criminally investigate or prosecute any alcohol or drug abuse patient.[facility] HospitalIn the event this information is protected by the Federal Confidentiality of Alcohol and Drug Abuse Patient Records regulations: The Federal rules restrict any use of the information to criminally investigate or prosecute any alcohol or drug abuse patient.[facility] HospitalIn the event this information is protected by the Federal Confidentiality of Alcohol and Drug Abuse Patient Records regulations: The Federal rules restrict any use of the information to criminally investigate or prosecute any alcohol or drug abuse patient.[facility] HospitalIn the event this information is protected by the Federal Confidentiality of Alcohol and Drug Abuse Patient Records regulations: The Federal rules restrict any use of the information to criminally investigate or prosecute any alcohol or drug abuse patient.[facility] HospitalIn the event this information is protected by the Federal Confidentiality of Alcohol and Drug Abuse Patient Records regulations: The Federal rules restrict any use of the information to criminally investigate or prosecute any alcohol or drug abuse patient.[facility] HospitalIn the event this information is protected by the Federal Confidentiality of Alcohol and Drug Abuse Patient Records regulations: The Federal rules restrict any use of the information to criminally investigate or prosecute any alcohol or drug abuse patient.[facility] HospitalIn the event this information is protected by the Federal Confidentiality of Alcohol and Drug Abuse Patient Records regulations: The Federal rules restrict any use of the information to criminally investigate or prosecute any alcohol or drug abuse patient.[facility] the event this information is protected by the Federal Confidentiality of Alcohol and Drug Abuse Patient Records regulations: The Federal rules restrict any use of the information to criminally investigate or prosecute any alcohol or drug abuse patient.[facility] HospitalIn the event this information is protected by the Federal Confidentiality of Alcohol and Drug Abuse Patient Records regulations: The Federal rules restrict any use of the information to criminally investigate or prosecute any alcohol or drug abuse patient.[facility] HospitalIn the event this information is protected by the Federal Confidentiality of Alcohol and Drug Abuse Patient Records regulations: The Federal rules restrict any use of the information to criminally investigate or prosecute any alcohol or drug abuse patient.[facility] HospitalIn the event this information is protected by the Federal Confidentiality of Alcohol and Drug Abuse Patient Records regulations: The Federal rules restrict any use of the information to criminally investigate or prosecute any alcohol or drug abuse patient.[facility] HospitalIn the event this information is protected by the Federal Confidentiality of Alcohol and Drug Abuse Patient Records regulations: The Federal rules restrict any use of the information to criminally investigate or prosecute any alcohol or drug abuse patient.[facility] HospitalIn the event this information is protected by the Federal Confidentiality of Alcohol and Drug Abuse Patient Records regulations: The Federal rules restrict any use of the information to criminally investigate or prosecute any alcohol or drug abuse patient.[facility] HospitalIn the event this information is protected by the Federal Confidentiality of Alcohol and Drug Abuse Patient Records regulations: The Federal rules restrict any use of the information to criminally investigate or prosecute any alcohol or drug abuse patient.[facility] HospitalIn the event this information is protected by the Federal Confidentiality of Alcohol and Drug Abuse Patient Records regulations: The Federal rules restrict any use of the information to criminally investigate or prosecute any alcohol or drug abuse patient.[facility] HospitalIn the event this information is protected by the Federal Confidentiality of Alcohol and Drug Abuse Patient Records regulations: The Federal rules restrict any use of the information to criminally investigate or prosecute any alcohol or drug abuse patient.[facility] HospitalIn the event this information is protected by the Federal Confidentiality of Alcohol and Drug Abuse Patient Records regulations: The Federal rules restrict any use of the information to criminally investigate or prosecute any alcohol or drug abuse patient.[facility] HospitalIn the event this information is protected by the Federal Confidentiality of Alcohol and Drug Abuse Patient Records regulations: The Federal rules restrict any use of the information to criminally investigate or prosecute any alcohol or drug abuse patient.[facility] HospitalIn the event this information is protected by the Federal Confidentiality of Alcohol and Drug Abuse Patient Records regulations: The Federal rules restrict any use of the information to criminally investigate or prosecute any alcohol or drug abuse patient.[facility] HospitalIn the event this information is protected by the Federal Confidentiality of Alcohol and Drug Abuse Patient Records regulations: The Federal rules restrict any use of the information to criminally investigate or prosecute any alcohol or drug abuse patient.[facility] HospitalIn the event this information is protected by the Federal Confidentiality of Alcohol and Drug Abuse Patient Records regulations: The Federal rules restrict any use of the information to criminally investigate or prosecute any alcohol or drug abuse patient.[facility] HospitalIn the event this information is protected by the Federal Confidentiality of Alcohol and Drug Abuse Patient Records regulations: The Federal rules restrict any use of the information to criminally investigate or prosecute any alcohol or drug abuse patient.[facility] HospitalIn the event this information is protected by the Federal Confidentiality of Alcohol and Drug Abuse Patient Records regulations: The Federal rules restrict any use of the information to criminally investigate or prosecute any alcohol or drug abuse patient.[facility] HospitalIn the event this information is protected by the Federal Confidentiality of Alcohol and Drug Abuse Patient Records regulations: The Federal rules restrict any use of the information to criminally investigate or prosecute any alcohol or drug abuse patient.[facility] HospitalIn the event this information is protected by the Federal Confidentiality of Alcohol and Drug Abuse Patient Records regulations: The Federal rules restrict any use of the information to criminally investigate or prosecute any alcohol or drug abuse patient.[facility] HospitalIn the event this information is protected by the Federal Confidentiality of Alcohol and Drug Abuse Patient Records regulations: The Federal rules restrict any use of the information to criminally investigate or prosecute any alcohol or drug abuse patient.[facility] HospitalIn the event this information is protected by the Federal Confidentiality of Alcohol and Drug Abuse Patient Records regulations: The Federal rules restrict any use of the information to criminally investigate or prosecute any alcohol or drug abuse patient.[facility] HospitalIn the event this information is protected by the Federal Confidentiality of Alcohol and Drug Abuse Patient Records regulations: The Federal rules restrict any use of the information to criminally investigate or prosecute any alcohol or drug abuse patient.[facility] HospitalIn the event this information is protected by the Federal Confidentiality of Alcohol and Drug Abuse Patient Records regulations: The Federal rules restrict any use of the information to criminally investigate or prosecute any alcohol or drug abuse patient.[facility] HospitalIn the event this information is protected by the Federal Confidentiality of Alcohol and Drug Abuse Patient Records regulations: The Federal rules restrict any use of the information to criminally investigate or prosecute any alcohol or drug abuse patient.[facility] HospitalIn the event this information is protected by the Federal Confidentiality of Alcohol and Drug Abuse Patient Records regulations: The Federal rules restrict any use of the information to criminally investigate or prosecute any alcohol or drug abuse patient.[facility] HospitalIn the event this information is protected by the Federal Confidentiality of Alcohol and Drug Abuse Patient Records regulations: The Federal rules restrict any use of the information to criminally investigate or prosecute any alcohol or drug abuse patient.[facility] HospitalIn the event this information is protected by the Federal Confidentiality of Alcohol and Drug Abuse Patient Records regulations: The Federal rules restrict any use of the information to criminally investigate or prosecute any alcohol or drug abuse patient.[facility] HospitalIn the event this information is protected by the Federal Confidentiality of Alcohol and Drug Abuse Patient Records regulations: The Federal rules restrict any use of the information to criminally investigate or prosecute any alcohol or drug abuse patient.[facility] HospitalIn the event this information is protected by the Federal Confidentiality of Alcohol and Drug Abuse Patient Records regulations: The Federal rules restrict any use of the information to criminally investigate or prosecute any alcohol or drug abuse patient.[facility] HospitalIn the event this information is protected by the Federal Confidentiality of Alcohol and Drug Abuse Patient Records regulations: The Federal rules restrict any use of the information to criminally investigate or prosecute any alcohol or drug abuse patient.[facility] HospitalIn the event this information is protected by the Federal Confidentiality of Alcohol and Drug Abuse Patient Records regulations: The Federal rules restrict any use of the information to criminally investigate or prosecute any alcohol or drug abuse patient.[facility] HospitalIn the event this information is protected by the Federal Confidentiality of Alcohol and Drug Abuse Patient Records regulations: The Federal rules restrict any use of the information to criminally investigate or prosecute any alcohol or drug abuse patient.[facility] HospitalIn the event this information is protected by the Federal Confidentiality of Alcohol and Drug Abuse Patient Records regulations: The Federal rules restrict any use of the information to criminally investigate or prosecute any alcohol or drug abuse patient.[facility] HospitalIn the event this information is protected by the Federal Confidentiality of Alcohol and Drug Abuse Patient Records regulations: The Federal rules restrict any use of the information to criminally investigate or prosecute any alcohol or drug abuse patient.[facility] HospitalIn the event this information is protected by the Federal Confidentiality of Alcohol and Drug Abuse Patient Records regulations: The Federal rules restrict any use of the information to criminally investigate or prosecute any alcohol or drug abuse patient.[facility] HospitalIn the event this information is protected by the Federal Confidentiality of Alcohol and Drug Abuse Patient Records regulations: The Federal rules restrict any use of the information to criminally investigate or prosecute any alcohol or drug abuse patient.[facility] HospitalIn the event this information is protected by the Federal Confidentiality of Alcohol and Drug Abuse Patient Records regulations: The Federal rules restrict any use of the information to criminally investigate or prosecute any alcohol or drug abuse patient.[facility] HospitalIn the event this information is protected by the Federal Confidentiality of Alcohol and Drug Abuse Patient Records regulations: The Federal rules restrict any use of the information to criminally investigate or prosecute any alcohol or drug abuse patient.[facility] HospitalIn the event this information is protected by the Federal Confidentiality of Alcohol and Drug Abuse Patient Records regulations: The Federal rules restrict any use of the information to criminally investigate or prosecute any alcohol or drug abuse patient.[facility] HospitalIn the event this information is protected by the Federal Confidentiality of Alcohol and Drug Abuse Patient Records regulations: The Federal rules restrict any use of the information to criminally investigate or prosecute any alcohol or drug abuse patient.[facility] HospitalIn the event this information is protected by the Federal Confidentiality of Alcohol and Drug Abuse Patient Records regulations: The Federal rules restrict any use of the information to criminally investigate or prosecute any alcohol or drug abuse patient.[facility] HospitalIn the event this information is protected by the Federal Confidentiality of Alcohol and Drug Abuse Patient Records regulations: The Federal rules restrict any use of the information to criminally investigate or prosecute any alcohol or drug abuse patient.[facility] HospitalIn the event this information is protected by the Federal Confidentiality of Alcohol and Drug Abuse Patient Records regulations: The Federal rules restrict any use of the information to criminally investigate or prosecute any alcohol or drug abuse patient.[facility] HospitalIn the event this information is protected by the Federal Confidentiality of Alcohol and Drug Abuse Patient Records regulations: The Federal rules restrict any use of the information to criminally investigate or prosecute any alcohol or drug abuse patient.[facility] HospitalIn the event this information is protected by the Federal Confidentiality of Alcohol and Drug Abuse Patient Records regulations: The Federal rules restrict any use of the information to criminally investigate or prosecute any alcohol or drug abuse patient.[facility] HospitalIn the event this information is protected by the Federal Confidentiality of Alcohol and Drug Abuse Patient Records regulations: The Federal rules restrict any use of the information to criminally investigate or prosecute any alcohol or drug abuse patient.[facility] HospitalIn the event this information is protected by the Federal Confidentiality of Alcohol and Drug Abuse Patient Records regulations: The Federal rules restrict any use of the information to criminally investigate or prosecute any alcohol or drug abuse patient.[facility] HospitalIn the event this information is protected by the Federal Confidentiality of Alcohol and Drug Abuse Patient Records regulations: The Federal rules restrict any use of the information to criminally investigate or prosecute any alcohol or drug abuse patient.[facility] HospitalIn the event this information is protected by the Federal Confidentiality of Alcohol and Drug Abuse Patient Records regulations: The Federal rules restrict any use of the information to criminally investigate or prosecute any alcohol or drug abuse patient.[facility] HospitalIn the event this information is protected by the Federal Confidentiality of Alcohol and Drug Abuse Patient Records regulations: The Federal rules restrict any use of the information to criminally investigate or prosecute any alcohol or drug abuse patient.[facility] HospitalIn the event this information is protected by the Federal Confidentiality of Alcohol and Drug Abuse Patient Records regulations: The Federal rules restrict any use of the information to criminally investigate or prosecute any alcohol or drug abuse patient.[facility] the event this information is protected by the Federal Confidentiality of Alcohol and Drug Abuse Patient Records regulations: The Federal rules restrict any use of the information to criminally investigate or prosecute any alcohol or drug abuse patient.[facility] HospitalIn the event this information is protected by the Federal Confidentiality of Alcohol and Drug Abuse Patient Records regulations: The Federal rules restrict any use of the information to criminally investigate or prosecute any alcohol or drug abuse patient.[facility] HospitalIn the event this information is protected by the Federal Confidentiality of Alcohol and Drug Abuse Patient Records regulations: The Federal rules restrict any use of the information to criminally investigate or prosecute any alcohol or drug abuse patient.[facility] HospitalIn the event this information is protected by the Federal Confidentiality of Alcohol and Drug Abuse Patient Records regulations: The Federal rules restrict any use of the information to criminally investigate or prosecute any alcohol or drug abuse patient.[facility] HospitalIn the event this information is protected by the Federal Confidentiality of Alcohol and Drug Abuse Patient Records regulations: The Federal rules restrict any use of the information to criminally investigate or prosecute any alcohol or drug abuse patient.[facility] HospitalIn the event this information is protected by the Federal Confidentiality of Alcohol and Drug Abuse Patient Records regulations: The Federal rules restrict any use of the information to criminally investigate or prosecute any alcohol or drug abuse patient.[facility] HospitalIn the event this information is protected by the Federal Confidentiality of Alcohol and Drug Abuse Patient Records regulations: The Federal rules restrict any use of the information to criminally investigate or prosecute any alcohol or drug abuse patient.[facility] HospitalIn the event this information is protected by the Federal Confidentiality of Alcohol and Drug Abuse Patient Records regulations: The Federal rules restrict any use of the information to criminally investigate or prosecute any alcohol or drug abuse patient.[facility] HospitalIn the event this information is protected by the Federal Confidentiality of Alcohol and Drug Abuse Patient Records regulations: The Federal rules restrict any use of the information to criminally investigate or prosecute any alcohol or drug abuse patient.[facility] HospitalIn the event this information is protected by the Federal Confidentiality of Alcohol and Drug Abuse Patient Records regulations: The Federal rules restrict any use of the information to criminally investigate or prosecute any alcohol or drug abuse patient.[facility] HospitalIn the event this information is protected by the Federal Confidentiality of Alcohol and Drug Abuse Patient Records regulations: The Federal rules restrict any use of the information to criminally investigate or prosecute any alcohol or drug abuse patient.[facility] HospitalIn the event this information is protected by the Federal Confidentiality of Alcohol and Drug Abuse Patient Records regulations: The Federal rules restrict any use of the information to criminally investigate or prosecute any alcohol or drug abuse patient.[facility] HospitalIn the event this information is protected by the Federal Confidentiality of Alcohol and Drug Abuse Patient Records regulations: The Federal rules restrict any use of the information to criminally investigate or prosecute any alcohol or drug abuse patient.[facility] HospitalIn the event this information is protected by the Federal Confidentiality of Alcohol and Drug Abuse Patient Records regulations: The Federal rules restrict any use of the information to criminally investigate or prosecute any alcohol or drug abuse patient.[facility] HospitalIn the event this information is protected by the Federal Confidentiality of Alcohol and Drug Abuse Patient Records regulations: The Federal rules restrict any use of the information to criminally investigate or prosecute any alcohol or drug abuse patient.[facility] HospitalIn the event this information is protected by the Federal Confidentiality of Alcohol and Drug Abuse Patient Records regulations: The Federal rules restrict any use of the information to criminally investigate or prosecute any alcohol or drug abuse patient.[facility] HospitalIn the event this information is protected by the Federal Confidentiality of Alcohol and Drug Abuse Patient Records regulations: The Federal rules restrict any use of the information to criminally investigate or prosecute any alcohol or drug abuse patient.[facility] HospitalIn the event this information is protected by the Federal Confidentiality of Alcohol and Drug Abuse Patient Records regulations: The Federal rules restrict any use of the information to criminally investigate or prosecute any alcohol or drug abuse patient.[facility] HospitalIn the event this information is protected by the Federal Confidentiality of Alcohol and Drug Abuse Patient Records regulations: The Federal rules restrict any use of the information to criminally investigate or prosecute any alcohol or drug abuse patient.[facility] HospitalIn the event this information is protected by the Federal Confidentiality of Alcohol and Drug Abuse Patient Records regulations: The Federal rules restrict any use of the information to criminally investigate or prosecute any alcohol or drug abuse patient.[facility] HospitalIn the event this information is protected by the Federal Confidentiality of Alcohol and Drug Abuse Patient Records regulations: The Federal rules restrict any use of the information to criminally investigate or prosecute any alcohol or drug abuse patient.[facility] HospitalIn the event this information is protected by the Federal Confidentiality of Alcohol and Drug Abuse Patient Records regulations: The Federal rules restrict any use of the information to criminally investigate or prosecute any alcohol or drug abuse patient.[facility] HospitalIn the event this information is protected by the Federal Confidentiality of Alcohol and Drug Abuse Patient Records regulations: The Federal rules restrict any use of the information to criminally investigate or prosecute any alcohol or drug abuse patient.[facility] HospitalIn the event this information is protected by the Federal Confidentiality of Alcohol and Drug Abuse Patient Records regulations: The Federal rules restrict any use of the information to criminally investigate or prosecute any alcohol or drug abuse patient.[facility] HospitalIn the event this information is protected by the Federal Confidentiality of Alcohol and Drug Abuse Patient Records regulations: The Federal rules restrict any use of the information to criminally investigate or prosecute any alcohol or drug abuse patient.[facility] HospitalIn the event this information is protected by the Federal Confidentiality of Alcohol and Drug Abuse Patient Records regulations: The Federal rules restrict any use of the information to criminally investigate or prosecute any alcohol or drug abuse patient.[facility] HospitalIn the event this information is protected by the Federal Confidentiality of Alcohol and Drug Abuse Patient Records regulations: The Federal rules restrict any use of the information to criminally investigate or prosecute any alcohol or drug abuse patient.[facility] HospitalIn the event this information is protected by the Federal Confidentiality of Alcohol and Drug Abuse Patient Records regulations: The Federal rules restrict any use of the information to criminally investigate or prosecute any alcohol or drug abuse patient.[facility] HospitalIn the event this information is protected by the Federal Confidentiality of Alcohol and Drug Abuse Patient Records regulations: The Federal rules restrict any use of the information to criminally investigate or prosecute any alcohol or drug abuse patient.[facility] HospitalIn the event this information is protected by the Federal Confidentiality of Alcohol and Drug Abuse Patient Records regulations: The Federal rules restrict any use of the information to criminally investigate or prosecute any alcohol or drug abuse patient.[facility] HospitalIn the event this information is protected by the Federal Confidentiality of Alcohol and Drug Abuse Patient Records regulations: The Federal rules restrict any use of the information to criminally investigate or prosecute any alcohol or drug abuse patient.[facility] HospitalIn the event this information is protected by the Federal Confidentiality of Alcohol and Drug Abuse Patient Records regulations: The Federal rules restrict any use of the information to criminally investigate or prosecute any alcohol or drug abuse patient.[facility] HospitalIn the event this information is protected by the Federal Confidentiality of Alcohol and Drug Abuse Patient Records regulations: The Federal rules restrict any use of the information to criminally investigate or prosecute any alcohol or drug abuse patient.[facility] HospitalIn the event this information is protected by the Federal Confidentiality of Alcohol and Drug Abuse Patient Records regulations: The Federal rules restrict any use of the information to criminally investigate or prosecute any alcohol or drug abuse patient.[facility] HospitalIn the event this information is protected by the Federal Confidentiality of Alcohol and Drug Abuse Patient Records regulations: The Federal rules restrict any use of the information to criminally investigate or prosecute any alcohol or drug abuse patient.[facility] HospitalIn the event this information is protected by the Federal Confidentiality of Alcohol and Drug Abuse Patient Records regulations: The Federal rules restrict any use of the information to criminally investigate or prosecute any alcohol or drug abuse patient.[facility] HospitalIn the event this information is protected by the Federal Confidentiality of Alcohol and Drug Abuse Patient Records regulations: The Federal rules restrict any use of the information to criminally investigate or prosecute any alcohol or drug abuse patient.[facility] HospitalIn the event this information is protected by the Federal Confidentiality of Alcohol and Drug Abuse Patient Records regulations: The Federal rules restrict any use of the information to criminally investigate or prosecute any alcohol or drug abuse patient.[facility] HospitalIn the event this information is protected by the Federal Confidentiality of Alcohol and Drug Abuse Patient Records regulations: The Federal rules restrict any use of the information to criminally investigate or prosecute any alcohol or drug abuse patient.[facility] HospitalIn the event this information is protected by the Federal Confidentiality of Alcohol and Drug Abuse Patient Records regulations: The Federal rules restrict any use of the information to criminally investigate or prosecute any alcohol or drug abuse patient.[facility] HospitalIn the event this information is protected by the Federal Confidentiality of Alcohol and Drug Abuse Patient Records regulations: The Federal rules restrict any use of the information to criminally investigate or prosecute any alcohol or drug abuse patient.[facility] HospitalIn the event this information is protected by the Federal Confidentiality of Alcohol and Drug Abuse Patient Records regulations: The Federal rules restrict any use of the information to criminally investigate or prosecute any alcohol or drug abuse patient.[facility] HospitalIn the event this information is protected by the Federal Confidentiality of Alcohol and Drug Abuse Patient Records regulations: The Federal rules restrict any use of the information to criminally investigate or prosecute any alcohol or drug abuse patient.[facility] HospitalIn the event this information is protected by the Federal Confidentiality of Alcohol and Drug Abuse Patient Records regulations: The Federal rules restrict any use of the information to criminally investigate or prosecute any alcohol or drug abuse patient.[facility] HospitalIn the event this information is protected by the Federal Confidentiality of Alcohol and Drug Abuse Patient Records regulations: The Federal rules restrict any use of the information to criminally investigate or prosecute any alcohol or drug abuse patient.[facility] HospitalIn the event this information is protected by the Federal Confidentiality of Alcohol and Drug Abuse Patient Records regulations: The Federal rules restrict any use of the information to criminally investigate or prosecute any alcohol or drug abuse patient.[facility] HospitalIn the event this information is protected by the Federal Confidentiality of Alcohol and Drug Abuse Patient Records regulations: The Federal rules restrict any use of the information to criminally investigate or prosecute any alcohol or drug abuse patient.[facility] HospitalIn the event this information is protected by the Federal Confidentiality of Alcohol and Drug Abuse Patient Records regulations: The Federal rules restrict any use of the information to criminally investigate or prosecute any alcohol or drug abuse patient.[facility] HospitalIn the event this information is protected by the Federal Confidentiality of Alcohol and Drug Abuse Patient Records regulations: The Federal rules restrict any use of the information to criminally investigate or prosecute any alcohol or drug abuse patient.[facility] the event this information is protected by the Federal Confidentiality of Alcohol and Drug Abuse Patient Records regulations: The Federal rules restrict any use of the information to criminally investigate or prosecute any alcohol or drug abuse patient.[facility] the event this information is protected by the Federal Confidentiality of Alcohol and Drug Abuse Patient Records regulations: The Federal rules restrict any use of the information to criminally investigate or prosecute any alcohol or drug abuse patient.[facility] Hospital[facility] the event this information is protected by the Federal Confidentiality of Alcohol and Drug Abuse Patient Records regulations: The Federal rules restrict any use of the information to criminally investigate or prosecute any alcohol or drug abuse patient.[facility] HospitalIn the event this information is protected by the Federal Confidentiality of Alcohol and Drug Abuse Patient Records regulations: The Federal rules restrict any use of the information to criminally investigate or prosecute any alcohol or drug abuse patient.[facility] Hospital[facility] the event this information is protected by the Federal Confidentiality of Alcohol and Drug Abuse Patient Records regulations: The Federal rules restrict any use of the information to criminally investigate or prosecute any alcohol or drug abuse patient.[facility] Hospital[facility] the event this information is protected by the Federal Confidentiality of Alcohol and Drug Abuse Patient Records regulations: The Federal rules restrict any use of the information to criminally investigate or prosecute any alcohol or drug abuse patient.[facility] HospitalIn the event this information is protected by the Federal Confidentiality of Alcohol and Drug Abuse Patient Records regulations: The Federal rules restrict any use of the information to criminally investigate or prosecute any alcohol or drug abuse patient.[facility] HospitalIn the event this information is protected by the Federal Confidentiality of Alcohol and Drug Abuse Patient Records regulations: The Federal rules restrict any use of the information to criminally investigate or prosecute any alcohol or drug abuse patient.[facility] HospitalIn the event this information is protected by the Federal Confidentiality of Alcohol and Drug Abuse Patient Records regulations: The Federal rules restrict any use of the information to criminally investigate or prosecute any alcohol or drug abuse patient.[facility] HospitalIn the event this information is protected by the Federal Confidentiality of Alcohol and Drug Abuse Patient Records regulations: The Federal rules restrict any use of the information to criminally investigate or prosecute any alcohol or drug abuse patient.[facility] HospitalIn the event this information is protected by the Federal Confidentiality of Alcohol and Drug Abuse Patient Records regulations: The Federal rules restrict any use of the information to criminally investigate or prosecute any alcohol or drug abuse patient.[facility] HospitalIn the event this information is protected by the Federal Confidentiality of Alcohol and Drug Abuse Patient Records regulations: The Federal rules restrict any use of the information to criminally investigate or prosecute any alcohol or drug abuse patient.[facility] Reason for Visit (unrecogniz ed section and content) Reason Comments Established Patient Specialty Diagnoses / Procedures Referred By Sujatha t Referred To Contact Hematology/Oncology / HEMATOLOGY/ONCOLOGY Diagnoses Malignant neoplasm of right kidney, except renal pelvis STUDY PT IRB [id number] ([facility] 1820) C64.1 NCT [id number] PER SLIP Procedures OFFICE/OUTPATIENT ESTABLISHED MOD MDM 30-39 MIN EST PATIENT/[place] [address] [place] [id number] Godfrey Ohara, FURNACE ERECTOR.CONCRETE MIXER OPERATOR HELPER [address] [place] [address] Referral ID Status Reason Start Date Expiration Date Visits Requested Visits Authorized [id number] Denied Financial Clearance Required - OON Payor OON Notification Letter Clearance Not Met - Admin/Working Supervisor/D irector Advise to Postpone/Resched ule or Not [...] STENT-PER MAJOR VESSEL OR BRANCH [facility] [address] [place] [id number] Referral ID Status Reason Start Date Expiration Date Visits Re quested Visits Authorized [id number] [address] Specialty Diagnoses / Procedures Referred By Sujatha t Referred To Contact CT IMAGING Diagnoses Malignant neoplasm of right kidney, except renal pelvis (HCC) Renal cell carcinoma, unspecified laterality (HCC) Procedures CT CHEST W IVCON DIAGNOSTIC COMPUTED TOMOGRAPHY THORAX W/CONTRAST Kenneth Chester MD [address] [place] [address] Ct Imaging Referral ID Status Reason Start Date Expiration Date V isits Requested Visits Authorized [id number] Closed Auto-Generate d Referral 07/14/2021 08/28/2021 1 1 Reason Comments Results Reason Comments New Patient Reason Comments Biopsy Request Specialty Diagnoses / Procedures Referred By Contac t Referred To Contact RADIO CT SCAN [facility] Diagnoses Malignant neoplasm of kidney, unspecified laterality (HCC) Malignant neoplasm of kidney excluding renal pelvis, unspecified laterality (HCC) Procedures CT ABD/PEL W IVCON CT ABD & PELVIS W/CONTRAST Adriana Hodge MD [address] [place] [address] [facility] [place] [address] [address] [place] [address] Referral ID Status Reason Start Date Expiration Date V isits Requested Visits Authorized [id number] Closed Auto-Generate d Referral 06/26/2021 08/10/2021 1 1 Specialty Diagnoses / Procedures Referred By Contac t Referred To Contact CT IMAGING Diagnoses Malignant neoplasm of kidney, unspecified laterality (HCC) Malignant neoplasm of kidney excluding renal pelvis, unspecified laterality (HCC) Procedures CT ABD/PEL WO IVCON CT ABD & PELVIS W/O CONTRAST Adriana Hodge MD [address] [place] [address] Ct Imaging Referral ID Status Reason Start Date Expiration Date Visits Requested Visits Authorized [id number] Waiting for Response Auto-Genera mandeep Referral Patient Cleared - Admin/Chair man/Directo r advise to proceed 06/26/2021 08/10/2021 1 1 Reason Comments Radiology [place] Specialty Diagnoses / Procedures [facility] To Contact MOLECULAR & FUNCTIONAL IMAGING Diagnoses Malignant neoplasm of kidney, unspecified laterality (HCC) Malignant neoplasm of kidney excluding renal pelvis, unspecified laterality (HCC) Procedures NM BONE WHOLE BODY BONE &/JOINT IMAGING WHOLE BODY Adriana Hodge MD [address] [place] [address] Molecular & Functional Imaging [address] [place] [address] Referral ID Status Reason Start Date Expiration Date V isits Requested Visits Authorized [id number] Closed Auto-Generate d Referral 06/26/2021 08/10/2021 2 2 Reason Comments Consult Specialty Diagnoses / Procedures Referred By Contac t Referred To Contact Oncology Diagnoses Malignant neoplasm of kidney, unspecified laterality (HCC) Malignant neoplasm of kidney excluding renal pelvis, unspecified laterality (HCC) Procedures CONSULT TO ONCOLOGY OFFICE/OUTPATIENT [facility] MDM 60-74 MINUTES Adriana Hodge MD [address] [place] [address] Referral ID Status Reason Start Date Expiration Date V isits Requested Visits Authorized [id number] Closed PCP Requested Referral 06/23/2021 06/23/2022 1 1 Reason Comments Research CUM 1820 Reason Comments Benefits Investigation Reason Comments Radiology MRI Specialty Diagnoses / Procedures Referred By Contac t Referred To Contact MR IMAGING Diagnoses Malignant neoplasm of kidney excluding renal pelvis, unspecified laterality (HCC) Renal cell carcinoma, unspecified laterality (HCC) Procedures MRI BRAIN WO/W IVCON MRI BRAIN BRAIN STEM W/O W/CONTRAST MATERIAL Kenneth Chester MD [address] [place] [address] Mr Imaging Referral ID Status Reason Start Date Expiration Date V isits Requested Visits Authorized [id number] Closed Auto-Generate d Referral 07/14/2021 08/28/2021 1 1 Reason Comments Shortness of Breath Hypertension Reason Comments Patient Education lisa Reason Comments Patient Education Reason Comments Blood Pressure Reason Comments Refill Request Reason Onset Date Comments Opened In Error 08/18/2021 Reason Comments Results Patient Update Windows Vmware Administrator - Other Reason Comments Established Patient Specialty Diagnoses / Procedures Referred By Contac t Referred To Contact CT IMAGING Diagnoses SOB (shortness of breath) Procedures CT CHEST W IVCON PE DIAGNOSTIC COMPUTED TOMOGRAPHY THORAX W/CONTRAST Daksha Melo PA-C [address] [place] [address] Ct Imaging Referral ID Status Reason Start Date Expiration Date Visits Requested Visits Authorized [id number] Pending Review Auto-Generat ed Referral 09/02/2021 10/02/2022 1 1 Reason Comments Radio Gen [id number] Reason Comments Patient Update Reason Comments Windows Vmware Administrator - Other Reason Comments Patient Question Reason Onset Date Comments Transition Of Care 09/29/2021 Pharmacy - [facility] spital Discharge 09/26/21 Heart Failure 09/29/2021 Reason Comments Follow Up Phone Call relate care mauricio ren follow up-1st attempt-no contact-left vm Reason Comments Medication Problem Called [facility] and canceled rx for cabzantinib and sent new order to [facility]. Reason Onset Date Comments Refill Request 10/21/2021 Reason Comments Anesthesia Consult Reason Comments PreOp Call Cardiac Optimization , Warfarin Clearance Reason Comments Returning Patient's Call called to say that surgery was canceled d/t an imaging issue (CT). RNCC will f/u to see if surgery is rescheduled. Reason Comments Windows Vmware Administrator - Other Calling to get an update on the patient's surgery schedule (to see if it had been rescheduled), and to inform him that the speciality pharmacy is trying to get a hold of them to deliver his medication. Reason Comments Recheck Specialty Diagnoses / Procedures Referred By Contac t Referred To Contact HEMATOLOGY/ONCOLOGY Diagnoses c64.1 Procedures OFFICE VISIT Haylee Wilburn MD [address] [place] [address] [address] [place] [address] [place] [address] Referral ID Status Reason Start Date Expiration Date V isits Requested Visits Authorized [id number] Closed Financial Clearance Not Required Patient Cleared - INN Insurance Found 10/23/2021 03/07/2022 [address] Specialty Diagnoses / Procedures Referred By Contac Referred To Contact CT IMAGING Diagnoses C64.8ORF-57-[id number] neoplasm of right kidney, except renal pelvis (HCC) Procedures CT CHEST W IVCON CT ABD/PEL W IVCON Adriana Hodge MD [address] [place] [address] Ct Imaging Referral ID Status Reason Start Date Expiration Date Visits Requested Visits Authorized [id number] Closed Financial Clearance Required - OON Payor OON Notification Letter Patient Cleared - Admin/Working Supervisor/D irector advise to proceed 11/17/2021 01/16/2022 1 [...] Procedures Consult and Treat Karin Cox MD [address] [place] [address] Alfredo Xavier MD [address] [facility] [place] [address] Referral ID Status Reason Start Date Expiration Date Visits Requested Visits Authorized [id number] Pending Review OON/Self Pay Override 12/03/2021 03/03/2022 1 1 Reason Comments New patient, to establish relationship Invalid number Letter Request Reason Comments Windows Vmware Administrator - Other Patient Update Reason Comments Informed Consent Reason Onset Date Comments Refill Request 01/22/2022 Specialty Diagnoses / Procedures Referred By Contac t Referred To Contact RADIATION ONCOLOGY Diagnoses Renal Cell ca Procedures OFFICE CONSULTATION NEW/ESTAB PATIENT 60 MIN monitor patient after completion of radiation treatment Suman Peterson, [facility] [address] [place] [address] Radt [facility] [address] [place] [address] [place] [address] Referral ID Status Reason Start Date Expiration Date V isits Requested Visits Authorized [id number] Closed OON/Self Pay Override Patient Cleared - INN Insurance Found 12/26/2021 03/26/2022 1 1 Reason Comments New Patient self-referral ANÍBAL fr [facility] [place].Reason for visit: hospital discharge from, 09-30-21 for new onset A. fib/RVRCardiac: 01/19/2022 EKG / 09/26/2021 Echo / 09/25/2021 EPS: Cardioversion08/05/2021 cardiac cathTelemetry: 09/26/2021 image of EKGLab work: 01/23/2022 through 06/20/2021Imagin01/19/2022 x-ray of the chest /11/20/2021 CT of the chestNote/strands: 09/22 09/30/2021 discharge summary Specialty Diagnoses / Procedures Referred By Contac t Referred To Contact CARDIOLOGY Diagnoses Self-referral Procedures FOLLOW-UP/REASSESSMENT Daksha Turner MD [facility] [place] [address] Card [facility] Courtney [address] [address] Referral ID Status Reason Start Date Expiration Date V isits Requested Visits Authorized [id number] Closed OON/Self Pay Override Patient Cleared - INN Insurance Found 12/25/2021 02/23/2022 1 1 Specialty Diagnoses / Procedures Referred By Contac t Referred To Contact HEMATOLOGY/ONCOLOGY Diagnoses Renal cell carcinoma of right kidney (HCC) Metastatic renal cell carcinoma (HCC) Procedures OFFICE VISIT W HEM/ONC Haylee Wilburn MD [address] [place] [address] [address] [facility] [address] [address] Referral ID Status Reason Start Date Expiration Date V isits Requested Visits Authorized [id number] Closed OON/Self Pay Override Patient Cleared - INN Insurance Found 02/12/2022 04/13/2022 1 1 Reason Comments Recheck Specialty Diagnoses / Procedures Referred By Contac t Referred To Contact HEMATOLOGY/ONCOLOGY Diagnoses Malignant neoplasm of unspecified kidney, except renal pelvis Procedures OFFICE/OUTPATIENT ESTABLISHED MOD MDM 30-39 MIN Haylee Wilburn MD [address] [place] [address] [address] [facility] [facility] [place] [address] Referral ID Status Reason Start Date Expiration Date Visits Requested Visits Authorized [id number] Pending Review OON/Self Pay Override 03/11/2022 06/09/2022 1 1 Reason Onset Date Comments SPP Oral Oncology/hematology - Treatment Referra l 03/12/2022 Inlyta Insurance Authorization 03/12/2022 Pending PA Reason Comments Appointment Reason Onset Date Comments Refill Request 03/16/2022 In[facility]ta to [facility] Reason Comments Appointment Windows Vmware Administrator - Other Specialty Diagnoses / Procedures Referred By Contchaparrita t Referred To Contact CT IMAGING Diagnoses Renal cell carcinoma of right kidney (HCC) Procedures CT CHEST W IVCON DIAGNOSTIC COMPUTED TOMOGRAPHY THORAX W/CONTRAST Haylee Wilburn MD [address] [place] [address] Ct Imaging Referral ID Status Reason Start Date Expiration Date V isits Requested Visits Authorized [id number] Closed Auto-Generat ed Referral Clearance Not Met [...] BE BASED ON THE PRIMARY CLINICAL RECORDS. [employer] provides no warranty or guarantee of the accuracy or completeness of information in this document.
== END | disposition home or self-care (01) ==
LOC: LAB 15:22
PROVIDERS: PCP Family Medicine; Referring Provider Nurse Practitioner Gerontology; Visit Provider Nurse Practitioner Gerontology
DX: I95.9 Hypotension, unspecified (principal)
CPT/HCPCS: 36415; 80048; 85025

== ENCOUNTER 2024-10-18 21:02 | Inpatient (IN) | payer MEDICARE, SELFPAY ==
[2024-10-18] VITALS (11 sets, daily range): BP systolic 77–126; BP diastolic 49–108; PULSE 73–98; RESP 15–26; TEMP 36.8; O2SAT 93–100
--- NOTE | 2024-10-18 21:48 | EX.ED.DYSGE1 ---
HPI History of Present Illness Chief Complaint: General Illness Narrative Narrative: Patient is a 59-year-old male presenting to the emergency department for abdominal pain, nausea and feeling generally unwell for the past week. Patient has a past medical history of metastatic renal cell carcinoma to bone status post nephrectomy, A-fib, hypertension, hyperlipidemia and CHF. Patient states that he has had diarrhea for months. States he feels dehydrated from all the diarrhea. Reports that last week he developed generalized abdominal pain and bloating as well. Endorses nausea with no vomiting. Denies fever or chills. Denies chest pain. States he was feeling short of breath right when he got here but he was not wearing oxygen this now no longer short of breath on his baseline 3 L nasal cannula. Denies any dysuria or hematuria. Denies any blood in his stool. Denies any recent antibiotics. [facility] Medical History Atrial fibrillation Abnormal chest x-ray Warfarin-induced coagulopathy Chronic a-fib CKD (chronic kidney disease) CKD (chronic kidney disease), stage III Systolic CHF Tobacco use NIMCO on CPAP Metastatic renal cell carcinoma to bone Renal cell cancer Hyperlipidemia GERD (gastroesophageal reflux disease) COPD (chronic obstructive pulmonary disease) Atrial fibrillation Hypertension Home Medications ?Medication ?Instructions ?Recorded ?Last Taken ?Type albuterol sulfate 2.5 mg/3 mL 2.5 mg (3 mL) inhalation PRN PRN 06/29/22 Unknown Rx (0.083 %) solution for nebulization Shortness Of Breath #75 mL ferrous sulfate 325 mg (65 mg 325 mg PO BID #30 tabs 06/29/22 Unknown Rx iron) tablet fluticasone fur. 100 mcg-umeclid 1 inh inhalation DAILY #28 ea 06/29/22 Unknown Rx 62.5 mcg-vilant 25 mcg inhalat.powder (Trelegy Ellipta) pantoprazole 40 mg tablet,delayed 40 mg PO DAILY gerd #30 tabs 06/29/22 Unknown Rx release potassium chloride 20 mEq 20 meq PO DAILY #30 tabs 06/29/22 Unknown Rx tablet,extended release rosuvastatin 40 mg tablet 40 mg PO DAILY cholesterol #30 tabs 06/29/22 Unknown Rx losartan 50 mg tablet 50 mg PO DAILY #90 tabs 09/29/22 Unknown Rx spironolactone 25 mg tablet 25 mg PO DAILY #90 tabs 09/29/22 Unknown Rx carvedilol 12.5 mg tablet 12.5 mg PO BID #180 TABLETS 06/04/24 Unknown Rx semaglutide 0.25 mg or 0.5 mg (2 0.25 mg subcut QWEEK 06/20/24 Unknown History mg/3 mL) subcutaneous pen injector (Ozempic) cabozantinib 20 mg tablet 20 mg PO QDAY 08/09/24 Unknown History apixaban 5 mg tablet (Eliquis) 5 mg PO BID #60 tabs 08/14/24 Unknown Rx Handicap Placard #1 ea 10/02/24 Unknown Rx bumetanide 2 mg tablet 2 mg PO ONCE 10/02/24 Unknown History calcitriol 0.25 mcg capsule 0.25 mcg PO QDAY 10/02/24 Unknown History dapagliflozin propanediol 5 mg 5 mg PO QDAY 10/02/24 Unknown History tablet (Farxiga) sertraline 50 mg tablet 50 mg PO QDAY 10/02/24 Unknown History tizanidine 4 mg capsule 4 mg PO BID PRN 10/02/24 Unknown History Allergy/AdvReac Type Severity Reaction Status Date / Time lisinopril Allergy Severe Angioedema Verified 10/18/24 21:09 guaifenesin (From Mucinex) Allergy Intermediate Bleeding Verified 10/18/24 21:09 aspirin (ASA) Allergy Other Verified 10/18/24 21:09 mushroom (mushrooms) Allergy Hives Verified 10/18/24 21:09 Penicillins Allergy PT UNSURE Verified 10/18/24 21:09 OF REACTION shellfish derived Allergy Hives Verified 10/18/24 21:09 Family History Father Cancer Mother Heart disease Hypertension Myocardial infarction Surgical History History of cardiac cath (~07/2021) History of cardioversion (~09/2021) History of nephrectomy, right Social History household members: spouse and family Smoking Status: Current every day smoker tobacco type: cigarettes Electronic Cigarette Use: with nicotine alcohol intake: current alcohol intake frequency: holidays/special occasions only substance use type: does not use ROS ROS ED ROS Narrative see HPI EXAM Physical Exam Narrative Exam Narrative: Vital signs: Reviewed General: Alert and oriented. No acute distress. Chronically ill-appearing. HEENT: Head is normocephalic and atraumatic, sinuses nontender, pupils equal round and reactive. Nares are patent. Oropharynx and throat exams normal. Dry mucous membranes Neck: Supple without lymphadenopathy nontender Cardiovascular: Regular rate and rhythm, no murmurs. No rubs or gallops. Normal S1 and S2 Respiratory: Clear to auscultation bilaterally. No wheezes, rales, rhonchi. On baseline 3 L nasal cannula Abdominal: Soft and generalized tenderness to palpation. Normal bowel sounds. No guarding or rebound. Nonsurgical abdomen Extremities: No tenderness. No bruising. Normal range of motion. Normal sensation. Skin: No rash or redness. Neurological: Cranial nerves II through XII are grossly intact. Normal strength and sensation. Normal cerebellar function The rest of the physical exam is unremarkable Const Vital Signs: 10/18/24 21:03 10/18/24 21:11 10/18/24 21:13 Temperature 98.3 F 98.3 F Temperature Source Temporal Oral Pulse Rate 98 79 Respiratory Rate 18 15 Respiratory Effort Normal Non-Labored Respiratory Pattern Normal Blood Pressure 77/49 L 126/108 H Blood Pressure Mean 58 114 Pulse Ox 98 100 Oxygen Delivery Method Room Air Nasal Cannula Oxygen Flow Rate (L/min) 3 10/18/24 21:13 10/18/24 22:03 10/18/24 22:08 Temperature 98.3 F Temperature Source Oral Pulse Rate 73 Respiratory Rate 17 Respiratory Effort Respiratory Pattern Blood Pressure 126/108 H 89/69 L 89/69 L Blood Pressure Mean 114 75 75 Pulse Ox 97 Oxygen Delivery Method Nasal Cannula Oxygen Flow Rate (L/min) 3 10/18/24 23:00 Temperature 98.3 F Temperature Source Oral Pulse Rate 87 Respiratory Rate 19 H Respiratory Effort Respiratory Pattern Blood Pressure 86/69 L Blood Pressure Mean 74 Pulse Ox 97 Oxygen Delivery Method Nasal Cannula Oxygen Flow Rate (L/min) 3 MDM MDM MDM Narrative Medical decision making narrative: Patient is a 59-year-old male presenting to the emergency department for feeling generally unwell with complaints of diarrhea. Patient was seen and examined. He is initially hypotensive at 77/49, heart rate in the 90s. He is afebrile. He is saturating 90% on his baseline 3 L nasal cannula. Fluid bolus ordered for patient's hypotension however will be slow with the fluids given his history of heart failure. Differential includes but is not limited to: Gastroenteritis, diverticulitis, UTI, sepsis, hypovolemia, pneumonia CBC with no leukocytosis and normal hemoglobin. Mild anion gap of 16. Slightly worsening kidney function than baseline. Looks like it has continued to worsen since June. Lipase mildly elevated, but does not meet criteria for pancreatitis. Chest x-ray shows a right lateral chest wall mass. CT abdomen pelvis shows no acute findings. Lactate is. Stool studies were sent. C diff negative. on chart review it looks like that patient was seen outpatient on 10/02 by cardiology and was hypotensive at 80/50 but was asymptomatic. labs were ordered at that time. Patient is not on midodrine at home. He is usually normotensive around 130s/80s on chart review. Patient will require admission for likely hypovolemia hypotension. Will require slow fluids given his CHF hx. Patient and agreeable. Clinical impression: 1. hypovolemia 2. hypotension 3. VIMAL History & Record Review Discussion w/independent historian: Patient and Family Additional record(s) reviewed:: Prior outpatient record and Prior ED visit Lab Data Attestation: I reviewed the patient's lab results. Labs: Laboratory Results - last 24 hr 10/18/24 21:15 WBC 5.1 RBC 4.48 L Hgb 14.6 Hct 42.5 MCV 94.9 H MCH 32.6 H MCHC 34.4 RDW Std Deviation 62.2 H RDW Coeff of Lizzie 18.1 H Plt Count 201 MPV 10.4 Immature Gran % (Auto) 0.400 Neut % (Auto) 66.2 Lymph % (Auto) 22.9 Rhea % (Auto) 7.8 Eos % (Auto) 2.5 Baso % (Auto) 0.2 Absolute Neuts (auto) 3.4 Absolute Lymphs (auto) 1.17 Nucleated RBC % 0 Sodium 138 Potassium 4.6 Chloride 103 Carbon Dioxide 18.1 L Anion Gap 16 H BUN 31 H Creatinine 2.77 H Est GFR (MDRD) Non-Af 25 L BUN/Creatinine Ratio 11.3 Glucose 116 H Calcium 9.5 Total Bilirubin 0.54 AST 46 H ALT 47 Alkaline Phosphatase 58 Total Protein 7.0 Albumin 4.0 Globulin 3.0 Albumin/Globulin Ratio 1.3 Lipase 86 H Radiography Diagnostic Testing: Clinical Impression(s) from Imaging Studies Abdomen/Pelvis CT 10/18/24 22:48 IMPRESSION: No acute abdominopelvic findings. Status post right-sided nephrectomy with multifocal bone metastatic disease. Reading Location: [place] [id number] Chest X-Ray 10/18/24 22:50 IMPRESSION: Right lateral chest wall mass. Reading Location: [id number] Discharge Plan Triage Chief Complaint: General Illness ED Provider: Veronica Jackson Dx/Rx/DC Orders Prescriptions: No Action spironolactone 25 mg tablet 25 mg PO DAILY Qty: 90 3RF losartan 50 mg tablet 50 mg PO DAILY Qty: 90 3RF Ozempic 0.25 mg or 0.5 mg (2 mg/3 mL) pen injector 0.25 mg subcut QWEEK Eliquis 5 mg tablet 5 mg PO BID Qty: 60 11RF dapagliflozin propanediol [Farxiga] 5 mg tablet 5 mg PO QDAY calcitriol 0.25 mcg capsule 0.25 mcg PO QDAY sertraline 50 mg tablet 50 mg PO QDAY tizanidine 4 mg capsule 4 mg PO BID PRN bumetanide 2 mg tablet 2 mg PO ONCE (DME) Handicap Placard See Rx Instructions .Route .MEDSUPPLY Qty: 1 0RF Rx Instructions: Exp: 10/13/2028 albuterol sulfate 2.5 mg /3 mL (0.083 %) solution for nebulization 2.5 mg inhalation PRN PRN (Reason: Shortness Of Breath) Qty: 75 0RF pantoprazole 40 mg tablet,delayed release (DR/EC) 40 mg PO DAILY Qty: 30 0RF ferrous sulfate 325 mg (65 mg iron) Tablet 325 mg PO BID Qty: 30 0RF rosuvastatin 40 mg Tablet 40 mg PO DAILY Qty: 30 0RF potassium chloride 20 mEq tablet extended release 20 meq PO DAILY Qty: 30 0RF Trelegy Ellipta 100-62.5-25 mcg blister with device 1 inh inhalation DAILY Qty: 28 0RF carvedilol 12.5 mg tablet 12.5 mg PO BID Qty: 180 3RF cabozantinib 20 mg tablet 20 mg PO QDAY Primary Care Provider: Bari Turner Referrals: Bari Turner MD [Primary Care Provider] - Print Language: Bhutanese
[2024-10-18] MEDS: 0.9% Normal Saline (1000mL) 1,000 ML 1000 ML IV (21:56)
[2024-10-18] MEDS: fentaNYL 100 MCG/2 ML Ampul 50 MCG IV (21:57)
[2024-10-18 21:59] LABS: Hematocrit 42.5 % (40-54); Hemoglobin 14.6 g/dL (13.0-16.5); Immature Granulocytes Count 0.020 X10^3/uL (0.0-0.0); Mean Corp Hgb Conc 34.4 g/dL (32-36); Mean Corpuscular Volume 94.9 fL (80-94); Mean Platelet Vol. 10.4 fl (6.2-12.0); NRBC Flagged by Analyzer 0 % (0-5); Platelet Count 201 K/mm3 (150-450); RBC Distribution Width CV 18.1 % (11.6-14.6); RBC Distribution Width SD 62.2 fl (35.1-43.9); Red Blood Count 4.48 M/mm3 (4.6-6.2); White Blood Count 5.1 K/mm3 (4.4-11.0)
[2024-10-18 22:39] LABS: AST(SGOT) 46 U/L (<=37); Alanine Aminotransfer ALT/SGPT 47 U/L (<=46); Albumin, Serum 4.0 g/dL (3.4-4.8); Alkaline Phosphatase 58 U/L (40-129); Anion Gap 16 (5-15); BUN 31 mg/dL (4-19); BUN/Creat Ratio 11.3 RATIO (10-20); Calcium,Total 9.5 mg/dL (7.6-11.0); Carbon Dioxide 18.1 mmol/L (21.0-32.0); Chloride 103 mmol/L (98-108); Globulin 3.0 g/dL (2.2-4.2); Glucose 116 mg/dL (70-99); Lipase 86 U/L (13-75); Potassium 4.6 mmol/L (3.3-5.1)
--- OUTSIDE RECORDS SUMMARY | 2024-10-18 22:42 | XMS RPT_ITS | CCD ---
Author Organization [facility] Care Team Providers Care Production Bow Maker Name Role Phone Unavailable, Family Physician Primary Care Physi terese Unavailable Jillian Maurer DO Primary Care Provider Daksha Turner MD Primary Care Provider Sumi HAHN, Sary Unavailable Unavailable Lalo Black MD Unavailable Rahul Knight RN Unavailable Madiha vailable Bropeggyan [facility], Safia Unavailable Daksha Turner MD Primary Care [...] Siri Harris Attending Unavailable Daksha Turner Unavailable [phone] Andre Mota Unavailable Unavailable JasvirGerard lozarit Unavailable Aravind Hernandez Unavailable Unavailable Alyssa [...] DAKSHA TURNER Primary Care Unavailabl e DAKSHA TURENR Primary Care Unavailabl e ADRIANA HODGE Referring [...] DAKSHA TURNER Primary Care Unavailabl e ORNSTEIN, KENENTH Referring Unavailable DAKSHA TURNER Primary Care Unavailabl [...] DAKSHA TURNER Primary Care Unavailabl e GODFREY OAHRA Referring Unavailable ADRIANA HODGE Referring Unavailable ROCCHIO, [...] Primary Care Madiha vailable Johnny, Dr. Daksha Luog Referring Madiha vailable [place], Dr. Aravind Rodriguez Attending Unavailab le Johnny, [...] Rahul Candelaria Unavailable Madiha dee Tello MD, [facility] N Unavailable Dr. Daksha Turner MD Primary Care Provider Dr. Daksha Turner MD Attending Provider Dr. Daksha Turner MD Referring Provider [phone] Dr. Isidra Chiu DO Attending Provider Dr. Isidra Chiu DO Referring Provider Dr. Daksha Turner MD Primary Care Provider Dr. Daksha Turner MD Attending Provider Johnny CLEMENT, Dr. Candelaria Referring Provider [phone] Ayan CLEMENT, Dr. Pierson Attending Provider [phone] Ayan CLEMENT, Dr. Pierson Referring Provider Johnny CLEMENT, Dr. Candelaria Primary Care Provider [employer], Gini Attending Provider [employer], Gini Referring Provider [phone] Jimenez CLEMENT, Dr. De Leon Attending Provider [phone] [employer], Gini Other Provider Johnny CLEMENT, Dr. Candelaria Primary Care Provider Johnny CLEMENT, Dr. Candelaria Referring Provider Johnny CLEMENT, Dr. Candelaria Attending Provider Johnny, Christopher Referring Unavailable Ranney, Christopher Primary Care Unavailable PraDangelo li Attending Unavailable Ranney, Christopher Primary Care Unavailable Ranney, Christopher Referring Unavailable PraDangelo li Attending Unavailable Ranney, Christopher Referring Unavailable Ranney, Christopher Primary Care Unavailable Primo Alves Attending Unavailabl e Ranney, Christopher Primary Care Unavailable Gini Couch Attending Unavailable Ranney, Christopher Primary Care Unavailable Ranney, Christopher Referring Unavailable Ranney, Christpaer Attending Unavailable Gini Couch Referring Unavailable Ranney, Christopher Primary Care Unavailable Gini Couch Attending Unavailable Aram, Isidra Referring Unavailable AramIsidra Attending Unavailable Ranney, Christopher Primary Care Unavailable Ranney, Christopher Primary Care Unavailable PraDangelo li Attending Unavailable Dangelo Botello Referring Unavailable Ranney, Christopher Referring Unavailable Ranney, Christopher [...] Attending Unavailable Ranney, Christopher Primary Care Unavailable Jimenez, Moises Attending Un[facility] Khoa, Gini Attending Unavailable Ranney, [facility] Unavailable Ranney, Christopher Referring Unavailable Khoa, Gini Attending Unavailable Ranney, [facility] Unavailable Khoa, Gini Referring Unavailable Couch, Gini Attending Unavailable [facility], [facility] Unavailable Prah, Dangelo Attending Unavailable Prah, Dangelo Referring Unavailable Ranney, [facility] Unavailable Praguillermo, Dangelo Attending Unavailable Prah, Dangelo Referring Unavailable Couch, Gini Referring Unavailable Ranney, [facility] Unavailable Khao, Gini Attending Unavailable Ranney, Christopher Referring Unavailable Ranney, [facility] Unavailable Ranney, Christopher Attending Unavailable Ranney, Christopher Referring Unavailable Ranney, [facility] Unavailable Ranney, Christopher Attending Unavailable Ranney, Christopher Attending Unavailable Ranney, [facility] Unavailable Ranney, Christopher Referring Unavailable Ranney, [facility] Unavailable Ranney, Christopher Referring Unavailable Gini Couch Attending Unavailable Allergies Allergy Classification Reported Allergen(s) Allergy Type Date of Onset Reaction(s) Facility (20 sources) Aspirin; Translations: [Aspirin TABS] Drug Allergy 5 Hives, Intolerance [facility] (20 sources) Lisinopril; Translations: [Lisinopril TABS] Drug Allergy 3 Angioedema [facility] (20 sources) Penicillins; Translations: [Penicillins] Allergy to substance 4 Intolerance [facility] (20 sources) Shellfish; Translations: [shellfish derived] Allergy to substance 0 Anaphylaxis [facility] (20 sources) Shellfish; Translations: [SHELLFISH CONTAINING PRODUCTS] Drug Allergy 0 Anaphylaxis, [facility] (20 sources) cultivated mushroom extract; Translations: [MUSHROOM] Drug Allergy 2 [facility] (3 sources) Aluminum aspirin Drug Allergy 9 [facility] (3 sources) Shellfish-deriv ed Products; Translations: [Shellfish-deri angy Products] Allergy to drug (finding) [facility] [place] [facility] 400 DO Work Phone: (1 source) Mushroom (edible) Unknown [facility] (1 source) Penicillin Drug Allergy Unknown [facility] (1 source) Shellfish Unknown [facility] (18 sources) guaiFENesin Drug Allergy 3 Bleeding [facility] (1 source) Aspirin Drug Allergy 5 [facility] (1 source) guaiFENesin Drug Allergy 5 [facility] (1 source) Lisinopril Drug Allergy 5 [facility] (1 source) Mushroom (edible) Drug allergy (disorder) 5 [facility] Medications Current Medications Medication Drug Class(es) Dates Sig (Normalized) Sig (Original) acetaminophen 500 mg oral tablet (20 sources) Start: 07-15-2021 take 2 tablets by mouth every six hours as needed acetaminophen (TYLENOL EXTRA STRENGTH) 500 mg tablet Take 2 tablets by mouth every 6 hours as needed for pain. 100 tablet 07/15/2021 Active Comment on above: Take 2 tablets by mo [facility] every 6 hours as needed [...] June 29, 2022 10:08am Start: 12-07-2021 End: 04-24-2023 take 90 ug by inhalation every four [...] once daily. apixaban 5 mg oral tablet (7 sources) Factor Xa Inhibitor Start: 08-14-2024 take 1 tablet by mouth twice daily Apixaban (Eliquis) 5 mg tablet Active 5 mg PO TWICE A DAY 60 11 August 14, 2024 12:00am bumetanide 2 mg [...] by mouth once daily. once daily. calcitriol 0.14617 mg oral capsule (2 sources) Vitamin D3 Analog Start: 10-02-2024 take 1 [...] mg dose. Take 3 tablets by mo ut twice daily. once daily. cetirizine hydrochloride 5 mg oral tablet (19 sources) Histamine-1 Receptor Antagonist Start: 12-14-19 End: 07-16-19 take 2 tablets by mouth once daily cetirizine (ZYRTEC) 5 MG tablet Take 2 Tabs by mouth daily 60 Tab 0 12/14/2011 Active Comment on above: Take 10 mg by mouth. dapagliflozin 5 mg oral tablet (2 sources) Sodium-Glucose Cotransporter 2 Inhibitor Start: 10-03-19 take [...] sources) Anticholinergic, Corticosteroid, beta2-Adrenergic Agonist Start: 06-29-2022 Zbrkqpncuzs-Horwpuevp-X ilanter (Trelegy Ellipta) 100-62.5-25 mcg blister with [...] 29, 2022 11:13am Start: 05-22-2022 End: 06-29-2022 Oeglveqnskt-Yhutxshdn-Tklbed er (Trelegy Ellipta) 100-62.5-25 mcg blister with device Discontinued 1 NMA INHALATION DAILY May 22, 2022 12:00am June 29, 2022 11:14am Start: 05-22-2022 End: 06-29-2022 Xygxfewhzrd-Peoquqwmq-Rvcnwv er (Trelegy Ellipta) 100-62.5-25 mcg blister with device Discontinued 1 INH INHALATION DAILY May 21, 2022 11:00pm June 29, 2022 10:14am Start: 05-22-2022 End: 06-29-2022 Bxvrixnxavi-Gmzqlehqk-Kyeifs er (Trelegy Ellipta) 100-62.5-25 mcg blister with [...] mcg inhalation powder 10/31/2021 Active Handicap Placard (2 sources) Start: 10-02-[address] Active 0 [...] 10 mL injection (DEFINITY) polyethylene glycol 3350 41639 mg powder for oral solution (16 sources) Osmotic Laxative Start: 02-06-2022 End: 02-12-2022 MiraLax oral powder for reconstitution ; 17 gram(s) orally once a day, As Needed for constipation Quantity: 119 Refills: 0 Ordered: 06-Feb-2022 Imani Clau Start: 06-Feb-2022 End: 12-Feb-2022 Generic Substitution Allowed Comments: Dilute this medication with liquid before administration.It is very important that you take or use this exactly as directed. Do not skip doses or discontinue unless directed by your doctor. Start: 02-06-2022 End: 04-09-2022 polyethylene glycol 3350 (AK RALAX, GLYCOLAX) 17 gram/dose powder Comment on [...] (KLOR-CON ) 20 mEq packet Potassium Chloride* ([id number]) 20 MEQ PACKET Active 20 MEQ PO 0 07/22/2021 Discontinued (Clinical Decision) Potassium Chlori de* ([id number]) 20 MEQ PACKET Active 20 MEQ PO Comment on above: Take 1 tablet by kellie once daily. Potassium Chloride* ([id number]) 20 MEQ PACKET Active 20 MEQ PO Semaglutide (8 sources) Start: 5 Semaglutide (Ozempic) 0.25 mg or 0.5 mg (2 mg/3 mL) pen injector Active 0.25 mg SC EVERY WEEK June 20, 2024 12:00am sertraline 50 mg oral tablet (2 sources) Serotonin Reuptake Inhibitor Start: 5 take 1 [...] on above: Take 1 tablet by kellie every 8 hours as needed. torsemide 20 [...] on above: TAKE 2 TABLETS BY MO [facility] TO EQUAL 40 MG ONCE PER DAY Take 1 tablet by [facility] once daily. Take 2 tablets by mo [facility] once daily. TAKE 2 TABLETS BY MOUTH [...] (Normalized) Sig (Original) Albuterol 90 mcg/actuation Aerosol (10 sources) Start: 12-07-2021 End: 06-29-2022 take 90 [...] tablet by mouth once daily Atenolol * ([id number] MG) 25 MG TABLET Discontinued 25 MG [...] needed for muscle spasms Cyclobenzaprine HCl * ([id number] MG) 10 MG TABLET Discontinued 10 MG [...] twice daily. TAKE 1 TABLET BY KELLIE TWICE A DAY furosemide 40 mg oral [...] Start: 09-04-2021 take 1 tablet by kellie twice daily furosemide (LASIX) 40 mg tablet Take 1 tablet by mouth twice daily. 60 tablet 3 09/04/2021 Suspended Start: 08-17-2021 End: 08-26-2021 take 1 tablet by mouth once daily furosemide (LASIX) 20 mg tablet Indications: Pedal edema Take 1 tablet by mouth once daily for 7 days. 7 tablet 0 08/19/2021 Suspended Comment on above: Take 1 tablet by kellie once daily for 7 days. Take 1 tablet by kellie twice daily. Take 1 tablet by kellie once daily. hydroCHLOROthiazide 25 mg oral tablet (1 source) Thiazide Diuretic End: 2015 take 1 tablet by mouth once daily Hydrochlorothiazide * ([id number] MG) 25 MG TABLET Discontinued 25 MG [...] Comment on above: Take 1 capsule by [facility] once daily. iv contrast (will be provided [...] 2019 12:00am December 09, 2021 7:58am nystatin 285660 unt/ml oral suspension (20 sources) Polyene Antifungal Start: 3 End: 5 Nystatin 100,000 unit/mL suspension Discontinued [id number] U PO DAILY 60 0 June 29, 2022 12:00am August 14, 2024 1:19pm administer 1/2 of dose in each side of the mouth Start: 05-20-2022 End: 05-25-2022 Nystatin 100,000 unit/mL gianluca pension Discontinued [id number] U PO DAILY 35 7 0 May [...] on above: Take 1 tablet by kellie every 8 hours as needed for nausea/vomiting. [...] PO DAILY as needed for gerd 30 May 20, 2022 11:18am May 25, 2022 9:35am Comment on above: Take 1 tablet by kellie once daily. predniSONE 20 mg oral tablet (20 sources) Start: 01-20-2022 End: 02-17-2022 predniSONE (DELTASONE) 20 mg tablet Start: 09-26-2021 take 2 tablets by mo [facility] once daily predniSONE (DELTASONE) 20 mg tablet Take 2 tablets by mouth once daily. 90 tablet 1 09/26/2021 Active Start: 09-11-2021 take 3 tablets by mo ut once daily predniSONE (DELTASONE) 20 mg tablet Take 3 tablets by mouth once daily. 90 tablet 1 09/11/2021 Suspended Comment on above: Take 3 tablets by mo ut once daily. Take 2 tablets by mo [facility] once daily. rosuvastatin calcium 40 mg oral tablet (20 sources) HMG-CoA Reductase Inhibitor Start: 08-20-19 End: 06-30-19 take 1 tablet by mouth once daily Rosuvastatin 40 mg Tablet Discontinued 40 mg PO DAILY 30 0 May 20, 2022 11:18am June 29, 2022 [...] 11:00pm Start: 09-27-2021 take 0.5 tablet by m outh once daily spironolactone (ALDACTONE) 25 mg tablet [...] sources) Vitamin K Antagonist Start: 2 End: 3 warfarin (COUMADIN) 2 mg tablet Start: 01-21-2022 [...] 2 01-28-2022 Chronic Coagulation and hemorrhagic disorders (19 sources) Blood coagulation disorder; Translations: [Hemorrhagic disorder [...] Coronary atherosclerosis; Translations: [Atherosclerotic heart disease of [place] coronary artery without angina pectoris] Onset: 2 [...] source) Conjunctivitis; Translations: [Conjunctivitis, unspecified] 01-29-2014 Episodic Malaise and fatigue (1 source) Other malaise; Translations: [Other malaise] Onset: 5 Episodic Malignant neoplasm without specification of site (20 sources) Malignant neoplastic disease; Translations: [Malignant (primary) neoplasm, unspecified] Onset: 4 06-28-2022 Chronic Comment on above: kidney ca Mycoses (20 sources) Candidiasis of mouth; Translations: [Candidal stomatitis] 05-20-2022 Episodic Nonspecific chest pain (20 sources) Tight chest; Translations: [Other chest pain] Onset: 5 Resolved: 5 02-06-2022 Episodic Other aftercare (1 source) 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; Translations: [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] Onset: 2 Episodic Other aftercare (1 source) 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; Translations: [Other [facility] (current) drug therapy] Onset: 2 Episodic Other circulatory disease (3 sources) Low blood pressure; Translations: [Hypotension, unspecified] 10-02-2024 Episodic Other circulatory disease (1 source) Hypotension, unspecified; Translations: [Hypotension, unspecified] Onset: 5 Episodic Other connective tissue disease (1 source) [...] Chronic Other diseases of kidney and ureters (18 sources) Chronic renal insufficiency; Translations: [Disorder of [...] abnormalities] 05-18-2022 Episodic Other lower respiratory disease (18 sources) Hemoptysis; Translations: [Hemoptysis] 12-15-2022 Episodic Other lower respiratory disease (18 sources) Respiratory insufficiency; Translations: [Other abnormalities of [...] conditions (not mental disorders or infectious disease) (19 sources) Imaging of thorax abnormal; Translations: [Abnormal [...] Respiratory failure; insufficiency; arrest (adult) (2 sources) Zavsj-tg-vimukdk respiratory failure 02-07-2022 Chronic Respiratory failure; insufficiency; [...] ERROR Unclassified (2 sources) RIGHT LAPAROSCOPIC NEPHRECTOMY (98723) 02-03-2022 Comment on above: RIGHT LAPAROSCOPIC N EPHRECTOMY (18176) Unclassified (2 sources) Body mass index (BMI) [...] lymphocyte countOrd ered By: Gini Couch on 10-02-2024 Lymphocytes Auto (Unsp spec) [#/Vol] 1.41 10*3/uL 0.83-4.51 [facility] Absolute neutrophil countOrd ered By: Gini Couch on 10-02-2024 Neutrophils (Bld) [#/Vol] 3.8 10*3/uL 2.0-7.7 [facility] Anion gap in Serum or Plasma Ordered By: Gini Couch on 10-02-2024 Anion gap [Moles/Vol] 13 mmol/L 5-15 [facility] Automated blood erythrocyte countOrdered By: Gini Couch on 10-02-2024 RBC (Bld) [#/Vol] 4.48 10*6/uL Low 4.6-6.2 [facility] Comment on above: Performed By: #### L 500.2500, L100.0100 ####[facility] [address] [place], [address] Automated blood hematocrit ( percentage)Ordered By: Gini Couch on 10-02-2024 Hematocrit (Bld) [Volume fraction] 43.4 % Normal 40-54 [facility] Comment on above: Performed By: #### L 500.2500, L100.0100 ####[facility] [address] [place], [address] Automated lymphocyte count a s percentage of total leukocytesOrdered By: Gini Couch on 10-02-2024 Lymphocytes/100 WBC Auto (Unsp spec) 24.7 % 19-41 [facility] BUN/creatinine ratioOrdered By: Gini Couch on 10-02-2024 Urea nitrogen/Creatinine [Mass ratio] 10.6 mg/mg 10-20 [facility] Basic Metabolic Profile (BMP )on 10-02-2024 BUN/CRE 10.6 RATIO Normal 10-20 [facility] Comment on above: Performed By: #### L 500.2500, L100.0100 ####[facility] [address] [place], [address] Calcium [Mass/Vol] 9.5 mg/dL Normal 7.6-11.0 [facility] Comment on above: Performed By: #### L 500.2500, L100.0100 ####[facility] [address] [place], [address] Chloride [Moles/Vol] 102 mmol/L Normal 98-108 [facility] Comment on above: Performed By: #### L 500.2500, L100.0100 ####[facility] [address] [place], [address] CO2 [Moles/Vol] 20.4 mmol/L Low 21.0-32.0 [facility] Comment on above: Performed By: #### L 500.2500, L100.0100 ####[facility] [address] [place], [address] Creatinine [Mass/Vol] 2.65 mg/dL High 0.70-1.20 [facility] Comment on above: Performed By: #### L 500.2500, L100.0100 ####[facility] [address] [place], [address] GAP 13 Normal 5-15 [facility] Comment on above: Performed By: #### L 500.2500, L100.0100 ####[facility] [address] [place], [address] GFR/1.73 sq M.predicted among non-blacks MDRD (S/P/Bld) [Vol rate/Area] 27 mL/min/{1.73_m2} Low >60 [facility] Comment on above: Result Comment: mL/m in/1.73m2 CKD-EPI Creatinine Equation (2020) Performed By: #### L 500.2500, L100.0100 ####[facility] [address] [place], [address] Glucose [Mass/Vol] 131 mg/dL High 70-99 [facility] Comment on above: Performed By: #### L 500.2500, L100.0100 ####[facility] [address] [place], [address] Potassium [Moles/Vol] 4.5 mmol/L Normal 3.3-5.1 [facility] Comment on above: Result Comment: Hemo lysis present, Results??could be affected. ?? Performed By: #### L 500.2500, L100.0100 ####[facility] [address] [place], [address] Sodium [Moles/Vol] 136 mmol/L Normal 133-145 [facility] Comment on above: Performed By: #### L 500.2500, L100.0100 ####[facility] [address] [place], [address] Urea nitrogen [Mass/Vol] 28 mg/dL High 4-19 [facility] Comment on above: Performed By: #### L 500.2500, L100.0100 ####[facility] [address] [place], [address] Basophil percentageOrdered B y: Gini Couch on 10-02-2024 Basophils/100 WBC (Bld) 0.4 % Normal 0-1 [facility] Comment on above: Performed By: #### L 500.2500, L100.0100 ####[facility] [address] [place], [address] CBC W/Diff, Automatedon 09-06 Absolute Lymph 1.41 X10 3/uL Normal 0.83-4.51 [facility] Comment on above: Performed By: #### L 500.2500, L100.0100 ####[facility] [address] [place], [address] Absolute Neut 3.8 X10 3/uL Normal 2.0-7.7 [facility] Comment on above: Performed By: #### L 500.2500, L100.0100 ####[facility] [address] [place], [address] IG% 0.400 Normal 0.0-0.9 [facility] Comment on above: Result Comment: IG% - Immature Granulocytes (promyelocytes, myelocytes and metamyelocytes) > 1% indicates that a LEFT SHIFT is Present. Performed By: #### L 500.2500, L100.0100 ####[facility] [address] [place], [address] Lymphocytes/100 WBC (Bld) 24.7 % Normal 19-41 [facility] Comment on above: Performed By: #### L 500.2500, L100.0100 ####[facility] [address] [place], [address] Nucleated RBC (Bld) [#/Vol] 0.5 10*3/uL Normal 0-5 [facility] Comment on above: Performed By: #### L 500.2500, L100.0100 ####[facility] [address] [place], [address] RDW SD 61.3 fl High 35.1-43.9 [facility] Comment on above: Performed By: #### L 500.2500, L100.0100 ####[facility] [address] [place], [address] Carbon dioxide, total [Moles /volume] in Central venous bloodOrdered By: Gini Couch on 10-02-2024 CO2 [Moles/Vol] 20.4 mmol/L Low 21.0-32.0 [facility] Cardiology Visit Reporton Cardiology Visit Report [facility] [address] [place] [address] OFFICE VISIT Date of Service: 10/02/24 MR#: [id number] Acct: [id number] Name: YEFRI YANEZ Rep #: [id number] : 1965 Provider: JARVIS campos Age/Sex: 59/M Location: [facility] Status: Signed HPI HPI History of Present [...] the care of the oncologist here at [facility]. He had presented to the hospital [...] he had a DC cardioversion at the [facility] system in September 2021. He had previously been seeing a firearms model maker in the [facility] system. During this admission to the hospital in May 2022 his medications were optimized he was diuresed his creatinine actually improved and he was subsequently discharged to find a firearms model maker. He also had a history of atrial fibrillation which appeared to be chronic and he was on anticoagulation with warfarin with his discharge INR being 2.1. He was asked to discontinue warfarin at this last office visit, and start Eliquis. From a cardiac standpoint, the patient is doing well. He denies any palpitations, chest pain, pressure or heaviness. He does acknowledge occasional SOB with exertion and at rest. This this is nothing new or worsening. He denies Orthopnea, and PND. He does not have bleeding issues; no blood in urine, stool, or nosebleeds. He does acknowledge occasional fatigue. He denies myalgias, or claudication. He does not have edema, or sudden weight gain. He does acknowledge occasional lightheadedness, and dizziness. He denies syncopal or near syncopal episodes, and headaches. He states he has not drank any water/fluids today. Intake Vital Signs 08/14/24 15:00 10/02/24 14:41 Height 5 ft 11 in 5 ft 11 in Weight: 259 lb BMI 36.1 BP 80/50 L Blood Pressure Location Lt brachial Position Sitting Respiration 16 Pulse 76 Pulse Source Monitor Pulse Oximetry (%) 99 Oxygen Delivery Method room air Intake Visit Reasons: 6-8 W FU Refractory Grinder Operator Required: No Accompanied by: Self Is patient in pain?: No Allergies lisinopril Allergy (Severe, Verified 10/02/24 14:53) Angioedema guaifenesin (From Mucinex) Allergy (Intermediate, Verified 10/02/24 14:53) Bleeding aspirin (ASA) Allergy (Verified 10/02/24 14:53) Other mushroom (mushrooms) Allergy (Verified 10/02/24 14:53) Hives Penicillins Allergy (Verified 10/02/24 14:53) PT UNSURE OF REACTION shellfish derived Allergy (Verified 10/02/24 14:53) Hives Medications ???Medication ???Instructions ???Recorded ???Confirmed ???Type albuterol sulfate 2.5 mg/3 mL 2.5 mg (3 mL) inhalation PRN PRN 0 06/29/22 10/02/24 Rx (0.083 %) solution for nebulization Shortness Of Breath #75 mL ferrous sulfate 325 mg (65 mg 325 mg PO BID #30 tabs 06/29/22 Rx iron) tablet fluticasone fur. 100 mcg-umeclid 1 inh inhalation DAILY #28 ea 06/07 (more content not included)... Normal [facility] Chloride assayOrdered By: Eduardo Couch on 10-02-2024 Chloride [Moles/Vol] 102 mmol/L 98-108 [facility] Eosinophil percentageOrdered By: Gini Couch on 10-02-2024 Eosinophils/100 WBC (Bld) 1.9 % Normal 0-5 [facility] Comment on above: Performed By: #### L 500.2500, L100.0100 ####[facility] [address] [place], [address] Erythrocyte distribution wid th ratioOrdered By: Gini Couch on 10-02-2024 Erythrocyte distribution width (RBC) [Ratio] 17.2 % High 11.6-14.6 [facility] Comment on above: Performed By: #### L 500.2500, L100.0100 ####[facility] [address] [place], [address] Erythrocyte distribution wid th standard deviationOrdered By: Gini Couch on 10-02-2024 Erythrocyte distribution width (RBC) [Ratio] 61.3 fl High 35.1-43.9 [facility] Glomerular filtration rate ( GFR) estimation/1.73 sq m using serum, plasma, or whole bOrdered By: Gini Couch on 10-02-2024 GFR/1.73 sq M.predicted among non-blacks MDRD (S/P/Bld) [Vol rate/Area] 27 mL/min/{1.73_m2} Low >60 [facility] Comment on above: mL/min/1.73m2 CKD-EP I Creatinine Equation (2020) Hemoglobin measurementOrdere d By: Gini Couch on 10-02-2024 Hemoglobin (Bld) [Mass/Vol] 14.6 g/dL Normal 13.0-16.5 [facility] Comment on above: Performed By: #### L 500.2500, L100.0100 ####[facility] [address] [place], [address] Immature granulocytes/100 WB C Auto (Bld)Ordered By: Gini Couch on 10-02-2024 Immature granulocytes/100 WBC (Bld) 0.400 % 0.0-0.9 [facility] Comment on above: IG% - Immature Granu locytes (promyelocytes, myelocytes and metamyelocytes) > 1% indicates that a LEFT SHIFT is Present. MCV (mean corpuscular volume ) determinationOrdered By: Gini Couch on 10-02-2024 MCV (RBC) [Entitic vol] 96.9 fL High 80-94 [facility] Comment on above: Performed By: #### L 500.2500, L100.0100 ####[facility] [address] [place], [address] Mean corpuscular hemoglobin (MCH) determinationOrdered By: Gini Couch on 10-02-2024 MCH (RBC) [Entitic mass] 32.6 pg High 27.0-32.0 [facility] Comment on above: Performed By: #### L 500.2500, L100.0100 ####[facility] [address] [place], [address] Mean corpuscular hemoglobin concentration (MCHC) determinationOrdered By: Gini Couch on 10-02-2024 MCHC (RBC) [Mass/Vol] 33.6 g/dL Normal 32-36 [facility] Comment on above: Performed By: #### L 500.2500, L100.0100 ####[facility] [address] [place], [address] Mean platelet volume determi nationOrdered By: Gini Couch on 10-02-2024 Platelet mean volume (Bld) [Entitic vol] 10.7 fL Normal 6.2-12.0 [facility] Comment on above: Performed By: #### L 500.2500, L100.0100 ####[facility] [address] [place], [address] Monocyte percentageOrdered B y: Gini Couch on 10-02-2024 Monocytes/100 WBC (Bld) 5.4 % Normal 0-10 [facility] Comment on above: Performed By: #### L 500.2500, L100.0100 ####[facility] [address] [place], [address] Neutrophil percentageOrdered By: Gini Couch on 10-02-2024 Neutrophils/100 WBC (Bld) 67.2 % Normal 47-70 [facility] Comment on above: Performed By: #### L 500.2500, L100.0100 ####[facility] [address] [facility] [place], [address] Nucleated red blood cell per centageOrdered By: Gini Couch on 10-02-2024 Nucleated RBC/100 WBC (Bld) [Ratio] 0.5 % 0-5 [facility] Platelet countOrdered By: Eduardo Couch on 10-02-2024 Platelets (Bld) [#/Vol] 213 10*3/uL Normal 150-450 [facility] Comment on above: Performed By: #### L 500.2500, L100.0100 ####[facility] [address] [facility] [place], [place], [id number] Potassium measurement (mass/ volume)Ordered By: Gini Couch on 10-02-2024 Potassium (Unsp spec) [Mass/Vol] 4.5 mmol/L 3.3-5.1 [facility] Comment on above: Hemolysis present, R esults could be affected. Serum creatinine measurement (mass/volume)Ordered By: Gini Couch on 10-02-2024 Creatinine [Mass/Vol] 2.65 mg/dL High 0.70-1.20 [facility] Serum glucose measurement (m ass/volume)Ordered By: Gini Couch on 10-02-2024 Glucose [Mass/Vol] 131 mg/dL High 70-99 [facility] Serum or plasma calcium cory urement (mass/volume)Ordered By: Gini Couch on 10-02-2024 Calcium [Mass/Vol] 9.5 mg/dL 7.6-11.0 [facility] Serum or plasma urea nitroge n measurement (mass/volume)Ordered By: Gini Couch on 10-02-2024 Urea nitrogen [Mass/Vol] 28 mg/dL High 4-19 [facility] Sodium levelOrdered By: Mercedes Couch on 10-02-2024 Sodium [Moles/Vol] 136 mmol/L 133-145 [facility] White blood cell (WBC) count Ordered By: Gini Couch on 10-02-2024 WBC (Bld) [#/Vol] 5.7 10*3/uL Normal 4.4-11.0 [facility] Comment on above: Performed By: #### L 500.2500, L100.0100 ####[facility] [address] [place], [address] Anion gap in Serum or Plasma Ordered By: Daksha Turner on 09-25-2024 Anion gap [Moles/Vol] 11 mmol/L 07-20 [facility] BUN/creatinine ratioOrdered By: Daksha Turner on 09-25-2024 Urea nitrogen/Creatinine [Mass ratio] 11.7 mg/mg - [facility] Basic Metabolic Profile (BMP )on 09-25-2024 BUN/CRE 11.7 RATIO Normal 12-25 [facility] Comment on above: Order Comment: Order Date: 09/25/24 Order Info: 0667-1 - BMP Order Info: [id number] - MG Order Info: 2497-06 - FE Order Info: 2275-06 - MARTIN Performed By: #### L 500.2500, L509.1000, L503.6150, L100.0500, L501.5200, L101.9900, L503.6550 #### [facility] [address] [place], [address] Calcium [Mass/Vol] 9.7 mg/dL Normal 7.6-11.0 [facility] Comment on above: Order Comment: Order Date: 09/25/24 Order Info: 0667-1 - BMP Order Info: [id number] - MG Order Info: 2497-06 - FE Order Info: 2275-4 - MARTIN Performed By: #### L 500.2500, L509.1000, L503.6150, L100.0500, L501.5200, L101.9900, L503.6550 #### [facility] [address] [place], [address] Chloride [Moles/Vol] 102 mmol/L Normal 98-108 [facility] Comment on above: Order Comment: Order Date: 09/25/24 Order Info: 0667-1 - BMP Order Info: [id number] - MG Order Info: 2498-4 - FE Order Info: 2276-4 - MARTIN Performed By: #### L 500.2500, L509.1000, L503.6150, L100.0500, L501.5200, L101.9900, L503.6550 #### [facility] [address] [place], [place], [phone] CO2 [Moles/Vol] 23.7 mmol/L Normal 21.0-32.0 [facility] Comment on above: Order Comment: Order Date: 09/25/24 Order Info: 666-03 - BMP Order Info: 90531-5 - MG Order Info: 2494 - FE Order Info: 2275-4 - MARTIN Performed By: #### L 500.2500, L509.1000, L503.6150, L100.0500, L501.5200, L101.9900, L503.6550 #### [facility] [address] [place], [place], [phone] Creatinine [Mass/Vol] 2.11 mg/dL High 0.70-1.20 [facility] Comment on above: Order Comment: Order Date: 09/25/24 Order Info: 666-03 - BMP Order Info: 11205-0 - MG Order Info: 2498-4 - FE Order Info: 227-4 - MARTIN Performed By: #### L 500.2500, L509.1000, L503.6150, L100.0500, L501.5200, L101.9900, L503.6550 #### [facility] [address] [place], [place], [phone] GAP 11 Normal 5-15 [facility] Comment on above: Order Comment: Order Date: 09/25/24 Order Info: 666-03 - BMP Order Info: 71569-0 - MG Order Info: 2498-4 - FE Order Info: 2276-4 - MARTIN Performed By: #### L 500.2500, L509.1000, L503.6150, L100.0500, L501.5200, L101.9900, L503.6550 #### [facility] [address] [place], [place], [address] GFR/1.73 sq M.predicted among non-blacks MDRD (S/P/Bld) [Vol rate/Area] 35 mL/min/{1.73_m2} Low >60 [facility] Comment on above: Order Comment: Order Date: 09/25/24 Order Info: 666-03 - BMP Order Info: 18600-3 - MG Order Info: 249-4 - FE Order Info: 227-4 - MARTIN Result Comment: mL/m in/1.73m2 CKD-EPI Creatinine Equation (2020) Performed By: #### L 500.2500, L509.1000, L503.6150, L100.0500, L501.5200, L101.9900, L503.6550 #### [facility] [address] [place], [place], [phone] Glucose [Mass/Vol] 99 mg/dL Normal 70-99 [facility] Comment on above: Order Comment: Order Date: 09/25/24 Order Info: 666-03 - BMP Order Info: 72605-6 - MG Order Info: 24910-09 - FE Order Info: 227-4 - MARTIN Performed By: #### L 500.2500, L509.1000, L503.6150, L100.0500, L501.5200, L101.9900, L503.6550 #### [facility] [address] [place], [address] Potassium [Moles/Vol] 4.5 mmol/L Normal 3.3-5.1 [facility] Comment on above: Order Comment: Order Date: 09/25/24 Order Info: 666-03 - BMP Order Info: 93989-8 - MG Order Info: 24984 - FE Order Info: 2276-4 - MARTIN Performed By: #### L 500.2500, L509.1000, L503.6150, L100.0500, L501.5200, L101.9900, L503.6550 #### [facility] [address] [place], [place], [address] Sodium [Moles/Vol] 136 mmol/L Normal 133-145 [facility] Comment on above: Order Comment: Order Date: 09/25/24 Order Info: 0667-1 - BMP Order Info: 61323-3 - MG Order Info: 24984 - FE Order Info: 2275-4 - MARTIN Performed By: #### L 500.2500, L509.1000, L503.6150, L100.0500, L501.5200, L101.9900, L503.6550 #### [facility] [address] [place], [place], [address] Urea nitrogen [Mass/Vol] 25 mg/dL High 4-19 [facility] Comment on above: Order Comment: Order Date: 09/25/24 Order Info: 0667-1 - BMP Order Info: 80105-3 - MG Order Info: 2497-06 - FE Order Info: 2275-06 - MARTIN Performed By: #### L 500.2500, L509.1000, L503.6150, L100.0500, L501.5200, L101.9900, L503.6550 #### [facility] [address] [place], [place], [address] CBC-Complete Blood Cnt No Di ffon 09-25-2024 Erythrocyte distribution width (RBC) [Ratio] 17.0 % High 11.6-14.6 [facility] Comment on above: Order Comment: Order Date: 09/25/24 Order Info: [id number] - CBC Order Info: 86280-3 - SED Performed By: #### L 500.2500, L509.1000, L503.6150, L100.0500, L501.5200, L101.9900, L503.6550 #### [facility] [address] [place], [place], [address] Hematocrit (Bld) [Volume fraction] 41.6 % Normal 40-54 [facility] Comment on above: Order Comment: Order Date: 09/25/24 Order Info: 99533-9 - CBC Order Info: 51139-4 - SED Performed By: #### L 500.2500, L509.1000, L503.6150, L100.0500, L501.5200, L101.9900, L503.6550 #### [facility] [address] [place], [address] Hemoglobin (Bld) [Mass/Vol] 14.2 g/dL Normal 13.0-16.5 [facility] Comment on above: Order Comment: Order Date: 09/25/24 Order Info: [id number] - CBC Order Info: 71187-6 - SED Performed By: #### L 500.2500, L509.1000, L503.6150, L100.0500, L501.5200, L101.9900, L503.6550 #### [facility] [address] [place], [address] MCH (RBC) [Entitic mass] 32.6 pg High 27.0-32.0 [facility] Comment on above: Order Comment: Order Date: 09/25/24 Order Info: [id number] - CBC Order Info: 17237-8 - SED Performed By: #### L 500.2500, L509.1000, L503.6150, L100.0500, L501.5200, L101.9900, L503.6550 #### [facility] [address] [place], [address] MCHC (RBC) [Mass/Vol] 34.1 g/dL Normal 32-36 [facility] Comment on above: Order Comment: Order Date: 09/25/24 Order Info: [id number] - CBC Order Info: 74374-5 - SED Performed By: #### L 500.2500, L509.1000, L503.6150, L100.0500, L501.5200, L101.9900, L503.6550 #### [facility] [address] [place], [address] MCV (RBC) [Entitic vol] 95.6 fL High 80-94 [facility] Comment on above: Order Comment: Order Date: 09/25/24 Order Info: [id number] - CBC Order Info: 63094-1 - SED Performed By: #### L 500.2500, L509.1000, L503.6150, L100.0500, L501.5200, L101.9900, L503.6550 #### [facility] [address] [place], [address] Platelet mean volume (Bld) [Entitic vol] 11.0 fL Normal 6.2-12.0 [facility] Comment on above: Order Comment: Order Date: 09/25/24 Order Info: [id number] - CBC Order Info: 41548-1 - SED Performed By: #### L 500.2500, L509.1000, L503.6150, L100.0500, L501.5200, L101.9900, L503.6550 #### [facility] [address] [place], [address] Platelets (Bld) [#/Vol] 189 10*3/uL Normal 150-450 [facility] Comment on above: Order Comment: Order Date: 09/25/24 Order Info: [id number] - CBC Order Info: [id number] - SED Performed By: #### L 500.2500, L509.1000, L503.6150, L100.0500, L501.5200, L101.9900, L503.6550 #### [facility] [address] [place], [address] RBC (Bld) [#/Vol] 4.35 10*6/uL Low 4.6-6.2 [facility] Comment on above: Order Comment: Order Date: 09/25/24 Order Info: 90726-2 - CBC Order Info: [id number] - SED Performed By: #### L 500.2500, L509.1000, L503.6150, L100.0500, L501.5200, L101.9900, L503.6550 #### [facility] [address] [facility] [place], [address] RDW SD 59.6 fl High 35.1-43.9 [facility] Comment on above: Order Comment: Order Date: 09/25/24 Order Info: [id number] - CBC Order Info: - SED Performed By: #### L 500.2500, L509.1000, L503.6150, L100.0500, L501.5200, L101.9900, L503.6550 #### [facility] [address] [facility] [place], [address] WBC (Bld) [#/Vol] 6.1 10*3/uL Normal 4.4-11.0 [facility] Comment on above: Order Comment: Order Date: 09/25/24 Order Info: 13657-0 - CBC Order Info: - SED Performed By: #### L 500.2500, L509.1000, L503.6150, L100.0500, L501.5200, L101.9900, L503.6550 #### [facility] [address] [facility] [place], [address] Carbon dioxide, total [Moles /volume] in Central venous bloodOrdered By: Daksha Turner on 09-25-2024 CO2 [Moles/Vol] 23.7 mmol/L 21.0-32.0 [facility] Cardiovascular stress test r eportOrdered By: Moises Gaona on 09-25-2024 Study report [facility] [address] [place] [address] MR#: [id number] Acct: [id number] Name: RENATAYEFRI RESHMA Rep #: [id number] : 1965 59 From: Moises Gaona MD Primary Care: Dr. Daksha Turner MD Status: REG CLI Referring Dr: Gini Couch NP [employer] HEAD-C Sex: M AA Stress Test Report Pharmacologic [...] Reduced ejection fraction. Previous apical infarct 09/25/24 175 Date _ Moises Gaona MD CC: [employer] HEAD-C Gini Couch; Dr. Daksha Turner MD ~ Date Dictated: 09/25/241745 Date Transcribed: 09/25/241745 [employer] Supervisor: [place] Signed [facility] Work Phone: Chloride assayOrdered By: Sejal Turner on 09-25-2024 Chloride [Moles/Vol] 102 mmol/L 98-108 [facility] Echo Completeon 09-25-2024 Echo Complete [facility] [address] [place] [address] Echo Complete 09/24/242019 MR#: [id number] Acct: [id number] Name: YEFRI YANEZ Rep #: [id number] : 1965 59 From: Moises Gaona MD Attending Dr: Gini Couch NP-C Status: [facility] Ordering Dr: Gini Couch NP [employer] HEAD-C Date: 09/25/24 Location: [facility] Sex: M AA Admitted: Reason For Study [...] RCS 09/25/241728 Date Moises Gaona MD CC: JARVIS Couch; Dr. Daksha Turner MD Date Dictated: 09/24/242019 Date Transcribed: 09/25/241728 [employer] Supervisor: Signed Normal [facility] Echocardiogram study reportO rdered By: Moises Gaona on 09-25-2024 Study report [facility] [address] [place] [address] Echo Complete 09/24/242019 MR#: [id number] Acct: [id number] Name: YEFRI YANEZ Rep #:[id number] : 1965 59 From: Moises Scott Attending Dr: JARVIS Valenzuela tatus: REG CLI Ordering Dr: Gini Couch NP Syd e: 09/25/24 Location: [facility] Sex: M AA Admitted: Reason For Study [...] Performed By: Unique Herzog RCS 09/25/241728 Date _ Moises Gaona MD CC: [employer]MENT HEAD-C Gini Couch; Dr. Daksha Turner MD ~ Date Dictated: 09/24/242019 Date Transcribed: 09/25/241728 [employer] Supervisor: Signed [facility] Work Phone: Erythrocyte Sed Rateon 09-25 SED RATE 30 mm/hr High 0-20 [facility] Comment on above: Order Comment: Order Date: 09/25/24 Order Info: [id number] - CBC Order Info: [id number] - SED Performed By: #### L 500.2500, L509.1000, L503.6150, L100.0500, L501.5200, L101.9900, L503.6550 #### [facility] [address] [place], [place], [address] Erythrocyte distribution wid th ratioOrdered By: Daksha Turner on 09-25-2024 Erythrocyte distribution width (RBC) [Ratio] 17.0 % High 11.6-14.6 [facility] Erythrocyte distribution wid th standard deviationOrdered By: Daksha Turner on 09-25-2024 Erythrocyte distribution width (RBC) [Ratio] 59.6 fl High 35.1-43.9 [facility] Erythrocyte sedimentation ra teOrdered By: Daksha Turner on 09-25-2024 ESR (Bld) [Velocity] 30 mm/h High 0-20 [facility] Ferritinon 09-25-2024 Ferritin [Mass/Vol] 590 ng/mL High 37-417 [facility] Comment on above: Order Comment: Order Date: 09/25/24Order Info: [id number] - BMPOrder Info: [id number] - MGOrder Info: [id number] - FEOrder Info: [id number] - MARTIN Performed By: #### L 500.2500, L509.1000, L503.6150, L100.0500, L501.5200, L101.9900, L503.6550 ####[facility] [address] [place], [place], [address] Glomerular filtration rate ( GFR) estimation/1.73 sq m using serum, plasma, or whole bOrdered By: Daksha Turner on 09-25-2024 GFR/1.73 sq M.predicted among non-blacks MDRD (S/P/Bld) [Vol rate/Area] 35 mL/min/{1.73_m2} Low >60 [facility] Comment on above: mL/min/1.73m2 CKD-EP I Creatinine Equation (2020) Hematocrit Auto (Bld) [Volum e fraction]Ordered By: Daksha Turner on 09-25-2024 Hematocrit (Bld) [Volume fraction] 41.6 % 40-54 [facility] Hemoglobin measurementOrdere d By: Daksha Turner on 09-25-2024 Hemoglobin (Bld) [Mass/Vol] 14.2 g/dL 13.0-16.5 [facility] Ironon 09-25-2024 Iron [Mass/Vol] 115 ug/dL Normal 65-175 [facility] Comment on above: Order Comment: Order Date: 09/25/24 Order Info: [id number] - BMP Order Info: [id number] - MG Order Info: [id number] - FE Order Info: [id number] - MARTIN Performed By: #### L 500.2500, L509.1000, L503.6150, L100.0500, L501.5200, L101.9900, L503.6550 #### [facility] [address], [address] Iron measurement (mass/mass) Ordered By: Daksha uTrner on 09-25-2024 Iron (Unsp spec) [Mass/Mass] 115 ug/dL 65-175 [facility] MCV (mean corpuscular volume ) determinationOrdered By: Daksha Turner on 09-25-2024 MCV (RBC) [Entitic vol] 95.6 fL High 80-94 [facility] Magnesiumon 09-25-2024 Magnesium [Mass/Vol] 1.9 mg/dL Normal 1.5-2.2 [facility] Comment on above: Order Comment: Order Date: 09/25/24 Order Info: [id number] - BMP Order Info: [id number] - MG Order Info: [id number] - FE Order Info: [id number] - MARTIN Performed By: #### L 500.2500, L509.1000, L503.6150, L100.0500, L501.5200, L101.9900, L503.6550 #### [facility] [address] [facility] [place], [place], [address] Magnesium measurement (mass/ volume)Ordered By: Daksha Turner on 09-25-2024 Magnesium (Unsp spec) [Mass/Vol] 1.9 mg/dL 1.5-2.2 [facility] Mean corpuscular hemoglobin (MCH) determinationOrdered By: Daksha Turner on 09-25-2024 MCH (RBC) [Entitic mass] 32.6 pg High 27.0-32.0 [facility] Mean corpuscular hemoglobin concentration (MCHC) determinationOrdered By: Daksha Turner on 09-25-2024 MCHC (RBC) [Mass/Vol] 34.1 g/dL 32-36 [facility] Mean platelet volume determi nationOrdered By: Daksha Turner on 09-25-2024 Platelet mean volume (Bld) [Entitic vol] 11.0 fL 6.2-12.0 [facility] PTHINon 09-25-2024 PTH 242 pg/mL High 11-61 [facility] Comment on above: Order Comment: Order Date: 09/25/24 Order Info: [id number] - PTHIN Performed By: #### L 500.2500, L509.1000, L503.6150, L100.0500, L501.5200, L101.9900, L503.6550 #### [facility] [address] [place], [place], [address] Platelet countOrdered By: Sejal Turner on 09-25-2024 Platelets (Bld) [#/Vol] 189 10*3/uL 150-450 [facility] Potassium measurement (mass/ volume)Ordered By: Daksha Turner on 09-25-2024 Potassium (Unsp spec) [Mass/Vol] 4.5 mmol/L 3.3-5.1 [facility] RBC Auto (Bld) [#/Vol]Ordere d By: Daksha Turner on 09-25-2024 RBC (Bld) [#/Vol] 4.35 10*6/uL Low 4.6-6.2 [facility] Serum creatinine measurement (mass/volume)Ordered By: Daksha Turner on 09-25-2024 Creatinine [Mass/Vol] 2.11 mg/dL High 0.70-1.20 [facility] Serum glucose measurement (m ass/volume)Ordered By: Daksha Turner on 09-25-2024 Glucose [Mass/Vol] 99 mg/dL 70-99 [facility] Serum or plasma calcium cory urement (mass/volume)Ordered By: Daksha Turner on 09-25-2024 Calcium [Mass/Vol] 9.7 mg/dL 7.6-11.0 [facility] Serum or plasma ferritin meliton surement (mass/volume)Ordered By: Daksha Turner on 09-25-2024 Ferritin [Mass/Vol] 590 ng/mL High 37-417 [facility] Serum or plasma urea nitroge n measurement (mass/volume)Ordered By: Daksha Turner on 09-25-2024 Urea nitrogen [Mass/Vol] 25 mg/dL High 4-19 [facility] Sodium levelOrdered By: Shawna melnia Johnny on 09-25-2024 Sodium [Moles/Vol] 136 mmol/L 133-145 [facility] Stress Reporton 09-25-2024 Stress Report [facility] [address] [place] [address] MR#: [id number] Acct: [id number] Name: YEFRI YANEZ Rep #: [id number] : 1965 59 From: Moises Gaona MD Primary Care: Dr. Daksha Turner MD Status: REG CLI Referring Dr: Gini Couch NP [employer] DE[employer] HEAD-C Sex: M A A Stress Test Report [...] Reduced ejection fraction. Previous apical infarct 09/25/24 175 Date Moises Gaona MD CC: JARVIS Couch; Dr. Daksha Turner MD Date Dictated: 09/25/241745 Date Transcribed: 09/25/241745 [employer] Supervisor: [place] Signed Normal [facility] Vitamin B12on 09-25-2024 Cobalamin (Vitamin B12) [Mass/Vol] 490 pg/mL Normal [id number] [facility] Comment on above: Order Comment: Order Date: 09/25/24 Order Info: [id number] - BMP Order Info: [id number] - MG Order Info: [id number] - Order Info: [id number] - MARTIN Performed By: #### L 503.0106, L506.1001 #### [facility] [address] [place], [place], [address] Vitamin B12 ser/plasOrdered By: Daksha Turner on 09-25-2024 Cobalamin (Vitamin B12) [Mass/Vol] 490 pg/mL 180-914 [facility] Vitamin D,25 Hydroxyon 09-25 Vitamin D 25-OH 16.2 ng/mL Low 30-100 [facility] Comment on above: Order Comment: Order Date: 09/25/24 Order Info: [id number] - BMP Order Info: [id number] - MG Order Info: [id number] - Order Info: [id number] - MARTIN Result Comment: Constanza min D Status Deficiency: <20 ng/mL (50nmol/L) Insufficiency: 20-30 ng/mL (50-75 nmol/L) Sufficiency: 30-100 ng/mL (75-250 nmol/L) Toxicity: >100 ng/mL (>250 nmol/L) Performed By: #### L 503.0106, L506.1001 #### [facility] [address] [place], [address] White blood cell (WBC) count Ordered By: Daksha Turner on 09-25-2024 WBC (Bld) [#/Vol] 6.1 10*3/uL 4.4-11.0 [facility] Absolute lymphocyte countOrd ered By: Gini Couch on 08-14-2024 Lymphocytes Auto (Unsp spec) [#/Vol] 1.02 10*3/uL 0.83-4.51 [facility] Absolute neutrophil countOrd ered By: Gini Couch on 08-14-2024 Neutrophils (Bld) [#/Vol] 3.6 10*3/uL 2.0-7.7 [facility] Anion gap in Serum or Plasma Ordered By: Gini Couch on 08-14-2024 Anion gap [Moles/Vol] 10 mmol/L 5-15 [facility] Automated lymphocyte count a s percentage of total leukocytesOrdered By: Gini Couch on 08-14-2024 Lymphocytes/100 WBC Auto (Unsp spec) 18.9 % Low 19-41 [facility] BUN/creatinine ratioOrdered By: Gini Cuoch on 08-14-2024 Urea nitrogen/Creatinine [Mass ratio] 9.5 mg/mg Low 10-20 [facility] Basic Metabolic Profile (BMP )on 08-14-2024 BUN/CRE 9.5 RATIO Low 10-20 [facility] Comment on above: Performed By: #### L 500.2500, L501.9520, L501.5200, L100.0100 ####[facility] [address] [place], [address] Calcium [Mass/Vol] 9.5 mg/dL Normal 7.6-11.0 [facility] Comment on above: Performed By: #### L 500.2500, L501.9520, L501.5200, L100.0100 ####[facility] [address] [place], [address] Chloride [Moles/Vol] 102 mmol/L Normal 98-108 [facility] Comment on above: Performed By: #### L 500.2500, L501.9520, L501.5200, L100.0100 ####[facility] [address] [place], [address] CO2 [Moles/Vol] 26.2 mmol/L Normal 21.0-32.0 [facility] Comment on above: Performed By: #### L 500.2500, L501.9520, L501.5200, L100.0100 ####[facility] [address] [place], [address] Creatinine [Mass/Vol] 2.22 mg/dL High 0.70-1.20 [facility] Comment on above: Performed By: #### L 500.2500, L501.9520, L501.5200, L100.0100 ####[facility] [address] [place], [address] GAP 10 Normal 5-15 [facility] Comment on above: Performed By: #### L 500.2500, L501.9520, L501.5200, L100.0100 ####[facility] [address] [place], [address] GFR/1.73 sq M.predicted among non-blacks MDRD (S/P/Bld) [Vol rate/Area] 33 mL/min/{1.73_m2} Low >60 [facility] Comment on above: Result Comment: mL/m in/1.73m2 CKD-EPI Creatinine Equation (2020) Performed By: #### L 500.2500, L501.9520, L501.5200, L100.0100 ####[facility] [address] [place], [address] Glucose [Mass/Vol] 101 mg/dL High 70-99 [facility] Comment on above: Performed By: #### L 500.2500, L501.9520, L501.5200, L100.0100 ####[facility] [address] [place], [address] Potassium [Moles/Vol] 4.7 mmol/L Normal 3.3-5.1 [facility] Comment on above: Performed By: #### L 500.2500, L501.9520, L501.5200, L100.0100 ####[facility] [address] [place], [address] Sodium [Moles/Vol] 138 mmol/L Normal 133-145 [facility] Comment on above: Performed By: #### L 500.2500, L501.9520, L501.5200, L100.0100 ####[facility] [address] [place], [address] Urea nitrogen [Mass/Vol] 21 mg/dL High 4-19 [facility] Comment on above: Performed By: #### L 500.2500, L501.9520, L501.5200, L100.0100 ####[facility] [address] [place], [address] Basophil percentageOrdered B y: Gini Couch on 08-14-2024 Basophils/100 WBC (Bld) 0.4 % 0-1 [facility] CBC W/Diff, Automatedon Absolute Lymph 1.02 X10 3/uL Normal 0.83-4.51 [facility] Comment on above: Performed By: #### L 500.2500, L501.9520, L501.5200, L100.0100 ####[facility] [address] [place], [address] Absolute Neut 3.6 X10 3/uL Normal 2.0-7.7 [facility] Comment on above: Performed By: #### L 500.2500, L501.9520, L501.5200, L100.0100 ####[facility] [address] [place], [address] Basophils/100 WBC (Bld) 0.4 % Normal 0-1 [facility] Comment on above: Performed By: #### L 500.2500, L501.9520, L501.5200, L100.0100 ####[facility] [address] [place], [address] Eosinophils/100 WBC (Bld) 2.2 % Normal 0-5 [facility] Comment on above: Performed By: #### L 500.2500, L501.9520, L501.5200, L100.0100 ####[facility] [address] [place], [address] Erythrocyte distribution width (RBC) [Ratio] 16.6 % High 11.6-14.6 [facility] Comment on above: Performed By: #### L 500.2500, L501.9520, L501.5200, L100.0100 ####[facility] [address] [place], [address] Hematocrit (Bld) [Volume fraction] 41.7 % Normal 40-54 [facility] Comment on above: Performed By: #### L 500.2500, L501.9520, L501.5200, L100.0100 ####[facility] [address] [place], [address] Hemoglobin (Bld) [Mass/Vol] 13.9 g/dL Normal 13.0-16.5 [facility] Comment on above: Performed By: #### L 500.2500, L501.9520, L501.5200, L100.0100 ####[facility] [address] [place], [address] IG% 0.200 Normal 0.0-0.9 [facility] Comment on above: Result Comment: IG% - Immature Granulocytes (promyelocytes, myelocytes and metamyelocytes) > 1% indicates that a LEFT SHIFT is Present. Performed By: #### L 500.2500, L501.9520, L501.5200, L100.0100 ####[facility] [address] [place], [address] Lymphocytes/100 WBC (Bld) 18.9 % Low 19-41 [facility] Comment on above: Performed By: #### L 500.2500, L501.9520, L501.5200, L100.0100 ####[facility] [address] [place], [address] MCH (RBC) [Entitic mass] 32.5 pg High 27.0-32.0 [facility] Comment on above: Performed By: #### L 500.2500, L501.9520, L501.5200, L100.0100 ####[facility] [address] [place], [address] MCHC (RBC) [Mass/Vol] 33.3 g/dL Normal 32-36 [facility] Comment on above: Performed By: #### L 500.2500, L501.9520, L501.5200, L100.0100 ####[facility] [address] [place], [address] MCV (RBC) [Entitic vol] 97.4 fL High 80-94 [facility] Comment on above: Performed By: #### L 500.2500, L501.9520, L501.5200, L100.0100 ####[facility] [address] [place], [address] Monocytes/100 WBC (Bld) 11.3 % High 0-10 [facility] Comment on above: Performed By: #### L 500.2500, L501.9520, L501.5200, L100.0100 ####[facility] [address] [place], [address] Neutrophils/100 WBC (Bld) 67.0 % Normal 47-70 [facility] Comment on above: Performed By: #### L 500.2500, L501.9520, L501.5200, L100.0100 ####[facility] [address] [place], [address] Nucleated RBC (Bld) [#/Vol] 0 10*3/uL Normal 0-5 [facility] Comment on above: Performed By: #### L 500.2500, L501.9520, L501.5200, L100.0100 ####[facility] [address] [place], [address] Platelet mean volume (Bld) [Entitic vol] 10.4 fL Normal 6.2-12.0 [facility] Comment on above: Performed By: #### L 500.2500, L501.9520, L501.5200, L100.0100 ####[facility] [address] [place], [address] Platelets (Bld) [#/Vol] 209 10*3/uL Normal 150-450 [facility] Comment on above: Performed By: #### L 500.2500, L501.9520, L501.5200, L100.0100 ####[facility] [address] [place], [address] RBC (Bld) [#/Vol] 4.28 10*6/uL Low 4.6-6.2 [facility] Comment on above: Performed By: #### L 500.2500, L501.9520, L501.5200, L100.0100 ####[facility] [address] [place], [address] RDW SD 59.1 fl High 35.1-43.9 [facility] Comment on above: Performed By: #### L 500.2500, L501.9520, L501.5200, L100.0100 ####[facility] [address] [place], [address] WBC (Bld) [#/Vol] 5.4 10*3/uL Normal 4.4-11.0 [facility] Comment on above: Performed By: #### L 500.2500, L501.9520, L501.5200, L100.0100 ####[facility] [address] [place], [place], [address] Carbon dioxide, total [Moles /volume] in Central venous bloodOrdered By: Gini Couch on 08-14-2024 CO2 [Moles/Vol] 26.2 mmol/L 21.0-32.0 [facility] Cardiology Visit Reporton Cardiology Visit Report [facility] [address] [place], [place] [address] OFFICE VISIT Date of Service: 08/14/24 MR#: [id number] Acct: [id number] Name: YEFRI YANEZ Rep #: [id number] : 1965 Provider: JARVIS campos Age/Sex: 59/M Location: [facility] Status: Signed HPI HPI History of Present [...] the care of the oncologist here at [facility]. He had presented to the hospital [...] he had a DC cardioversion at the [facility] in September 2021. He had previously been seeing a firearms model maker in the [facility]. During this admission to the hospital in May 2022 his medications were optimized he was diuresed his creatinine actually improved and he was subsequently discharged to find a firearms model maker. 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 Normal [facility] Chloride assayOrdered By: Eduardo Couch on 08-14-2024 Chloride [Moles/Vol] 102 mmol/L 98-108 [facility] Eosinophil percentageOrdered By: Gini Couch on 08-14-2024 Eosinophils/100 WBC (Bld) 2.2 % 0-5 [facility] Erythrocyte distribution wid th ratioOrdered By: Gini Couch on 08-14-2024 Erythrocyte distribution width (RBC) [Ratio] 16.6 % High 11.6-14.6 [facility] Erythrocyte distribution wid th standard deviationOrdered By: Gini Couch on 08-14-2024 Erythrocyte distribution width (RBC) [Ratio] 59.1 fl High 35.1-43.9 [facility] Glomerular filtration rate ( GFR) estimation/1.73 sq m using serum, plasma, or whole bOrdered By: Gini Couch on 08-14-2024 GFR/1.73 sq M.predicted among non-blacks MDRD (S/P/Bld) [Vol rate/Area] 33 mL/min/{1.73_m2} Low >60 [facility] Comment on above: mL/min/1.73m2 CKD-EP I Creatinine Equation (2020) Hematocrit Auto (Bld) [Volum e fraction]Ordered By: Gini Couch on 08-14-2024 Hematocrit (Bld) [Volume fraction] 41.7 % 40-54 [facility] Hemoglobin measurementOrdere d By: Gini Couch on 08-14-2024 Hemoglobin (Bld) [Mass/Vol] 13.9 g/dL 13.0-16.5 [facility] Immature granulocytes/100 WB C Auto (Bld)Ordered By: Gini Couch on 08-14-2024 Immature granulocytes/100 WBC (Bld) 0.200 % 0.0-0.9 [facility] Comment on above: IG% - Immature Granu locytes (promyelocytes, myelocytes and metamyelocytes) > 1% indicates that a LEFT SHIFT is Present. MCV (mean corpuscular volume ) determinationOrdered By: Gini Couch on 08-14-2024 MCV (RBC) [Entitic vol] 97.4 fL High 80-94 [facility] Magnesiumon 08-14-2024 Magnesium [Mass/Vol] 2.3 mg/dL High 1.5-2.2 [facility] Comment on above: Performed By: #### L 503.0106, L506.1001 #### [facility] [address] [place] [address], [address] Magnesium measurement (mass/ volume)Ordered By: Gini Couch on 08-14-2024 Magnesium (Unsp spec) [Mass/Vol] 2.3 mg/dL High 1.5-2.2 [facility] Mean corpuscular hemoglobin (MCH) determinationOrdered By: Gini Couch on 08-14-2024 MCH (RBC) [Entitic mass] 32.5 pg High 27.0-32.0 [facility] Mean corpuscular hemoglobin concentration (MCHC) determinationOrdered By: Gini Couch on 08-14-2024 MCHC (RBC) [Mass/Vol] 33.3 g/dL 32-36 [facility] Mean platelet volume determi nationOrdered By: Gini Couch on 08-14-2024 Platelet mean volume (Bld) [Entitic vol] 10.4 fL 6.2-12.0 [facility] Monocyte percentageOrdered B y: Gini Couch on 08-14-2024 Monocytes/100 WBC (Bld) 11.3 % High 0-10 [facility] Neutrophil percentageOrdered By: Gini Couch on 08-14-2024 Neutrophils/100 WBC (Bld) 67.0 % 47-70 [facility] Nucleated red blood cell per centageOrdered By: Gini Couch on 08-14-2024 Nucleated RBC/100 WBC (Bld) [Ratio] 0 % 0-5 [facility] Platelet countOrdered By: Eduardo Couch on 08-14-2024 Platelets (Bld) [#/Vol] 209 10*3/uL 150-450 [facility] Potassium measurement (mass/ volume)Ordered By: Gini Couch on 08-14-2024 Potassium (Unsp spec) [Mass/Vol] 4.7 mmol/L 3.3-5.1 [facility] RBC Auto (Bld) [#/Vol]Ordere d By: Gini Couch on 08-14-2024 RBC (Bld) [#/Vol] 4.28 10*6/uL Low 4.6-6.2 [facility] Serum creatinine measurement (mass/volume)Ordered By: Gini Couch on 08-14-2024 Creatinine [Mass/Vol] 2.22 mg/dL High 0.70-1.20 [facility] Serum glucose measurement (m ass/volume)Ordered By: Gini Couch on 08-14-2024 Glucose [Mass/Vol] 101 mg/dL High 70-99 [facility] Serum or plasma calcium cory urement (mass/volume)Ordered By: Gini Couch on 08-14-2024 Calcium [Mass/Vol] 9.5 mg/dL 7.6-11.0 [facility] Serum or plasma urea nitroge n measurement (mass/volume)Ordered By: Gini Couch on 08-14-2024 Urea nitrogen [Mass/Vol] 21 mg/dL High 4-19 [facility] Sodium levelOrdered By: Mercedes Couch on 08-14-2024 Sodium [Moles/Vol] 138 mmol/L 133-145 [facility] TSH DL <= 0.005 mIU/L QnOrde red By: Gini Couch on 08-14-2024 TSH Qn 1.940 uIU/mL 0.300-4.20 0 [facility] Thyroid Stim Hormone (TSH)on 08-14-2024 TSH 1.940 uIU/mL Normal 0.300-4.20 0 [facility] Comment on above: Performed By: #### L 503.0106, L506.1001 #### [facility] [address] [place], [address] White blood cell (WBC) count Ordered By: Gini Couch on 08-14-2024 WBC (Bld) [#/Vol] 5.4 10*3/uL 4.4-11.0 [facility] Absolute lymphocyte countOrd ered By: Dangelo Botello on 06-20-2024 Lymphocytes Auto (Unsp spec) [#/Vol] 1.11 10*3/uL 0.83-4.51 [facility] Absolute neutrophil countOrd ered By: Dangelo Botello on 06-20-2024 Neutrophils (Bld) [#/Vol] 4.3 10*3/uL 2.0-7.7 [facility] Anion gap in Serum or Plasma Ordered By: Dangelo Botello on 06-20-2024 Anion gap [Moles/Vol] 10 mmol/L 5-15 [facility] Automated lymphocyte count a s percentage of total leukocytesOrdered By: Dangelo Botello on 06-20-2024 Lymphocytes/100 WBC Auto (Unsp spec) 18.8 % Low 19-41 [facility] BUN/creatinine ratioOrdered By: Dangelo Botello on 06-20-2024 Urea nitrogen/Creatinine [Mass ratio] 8.0 mg/mg Low 10-20 [facility] Basophil percentageOrdered B y: Dangelo Botello on 06-20-2024 Basophils/100 WBC (Bld) 0.3 % 0-1 [facility] Bilirubin, totalOrdered By: Dangelo Botello on 06-20-2024 Bilirubin [Mass/Vol] 0.39 mg/dL 0.00-1.30 [facility] CBC W/Diff, Automatedon 06-06 Absolute Lymph 1.11 X10 3/uL Normal 0.83-4.51 [facility] Comment on above: Performed By: #### L 504.2610, L500.4050, L100.0100 ####[facility] [address] [place], [address] Absolute Neut 4.3 X10 3/uL Normal 2.0-7.7 [facility] Comment on above: Performed By: #### L 504.2610, L500.4050, L100.0100 ####[facility] [address] [place], [address] Basophils/100 WBC (Bld) 0.3 % Normal 0-1 [facility] Comment on above: Performed By: #### L 504.2610, L500.4050, L100.0100 ####[facility] [address] [place], [address] Eosinophils/100 WBC (Bld) 0.5 % Normal 0-5 [facility] Comment on above: Performed By: #### L 504.2610, L500.4050, L100.0100 ####[facility] [address] [place], [address] Erythrocyte distribution width (RBC) [Ratio] 17.2 % High 11.6-14.6 [facility] Comment on above: Performed By: #### L 504.2610, L500.4050, L100.0100 ####[facility] [address] [place], [address] Hematocrit (Bld) [Volume fraction] 41.0 % Normal 40-54 [facility] Comment on above: Performed By: #### L 504.2610, L500.4050, L100.0100 ####[facility] [address] [place], [address] Hemoglobin (Bld) [Mass/Vol] 13.8 g/dL Normal 13.0-16.5 [facility] Comment on above: Performed By: #### L 504.2610, L500.4050, L100.0100 ####[facility] [address] [place], [address] IG% 1.400 High 0.0-0.9 [facility] Comment on above: Result Comment: IG% - Immature Granulocytes (promyelocytes, myelocytes and metamyelocytes) > 1% indicates that a LEFT SHIFT is Present. Performed By: #### L 504.2610, L500.4050, L100.0100 ####[facility] [address] [place], [address] Lymphocytes/100 WBC (Bld) 18.8 % Low 19-41 [facility] Comment on above: Performed By: #### L 504.2610, L500.4050, L100.0100 ####[facility] [address] [place], [address] MCH (RBC) [Entitic mass] 33.3 pg High 27.0-32.0 [facility] Comment on above: Performed By: #### L 504.2610, L500.4050, L100.0100 ####[facility] [address] [place], [address] MCHC (RBC) [Mass/Vol] 33.7 g/dL Normal 32-36 [facility] Comment on above: Performed By: #### L 504.2610, L500.4050, L100.0100 ####[facility] [address] [place], [address] MCV (RBC) [Entitic vol] 99.0 fL High 80-94 [facility] Comment on above: Performed By: #### L 504.2610, L500.4050, L100.0100 ####[facility] [address] [place], [address] Monocytes/100 WBC (Bld) 6.9 % Normal 0-10 [facility] Comment on above: Performed By: #### L 504.2610, L500.4050, L100.0100 ####[facility] [address] [place], [address] Neutrophils/100 WBC (Bld) 72.1 % High 47-70 [facility] Comment on above: Performed By: #### L 504.2610, L500.4050, L100.0100 ####[facility] [address] [place], [address] Nucleated RBC (Bld) [#/Vol] 0 10*3/uL Normal 0-5 [facility] Comment on above: Performed By: #### L 504.2610, L500.4050, L100.0100 ####[facility] [address] [place], [address] Platelet mean volume (Bld) [Entitic vol] 10.8 fL Normal 6.2-12.0 [facility] Comment on above: Performed By: #### L 504.2610, L500.4050, L100.0100 ####[facility] [address] [place], [address] Platelets (Bld) [#/Vol] 233 10*3/uL Normal 150-450 [facility] Comment on above: Performed By: #### L 504.2610, L500.4050, L100.0100 ####[facility] [address] [place], [address] RBC (Bld) [#/Vol] 4.14 10*6/uL Low 4.6-6.2 [facility] Comment on above: Performed By: #### L 504.2610, L500.4050, L100.0100 ####[facility] [address] [place], [address] RDW SD 62.4 fl High 35.1-43.9 [facility] Comment on above: Performed By: #### L 504.2610, L500.4050, L100.0100 ####[facility] [address] [place], [address] WBC (Bld) [#/Vol] 5.9 10*3/uL Normal 4.4-11.0 [facility] Comment on above: Performed By: #### L 504.2610, L500.4050, L100.0100 ####[facility] [address] [place], [address] Carbon dioxide, total [Moles /volume] in Central venous bloodOrdered By: Dangelo Botello on 06-20-2024 CO2 [Moles/Vol] 26.0 mmol/L 21.0-32.0 [facility] Chloride assayOrdered By: Raeann Botello on 06-20-2024 Chloride [Moles/Vol] 100 mmol/L 98-108 [facility] Comprehensive Metabolic Prof ilon 06-20-2024 Albumin [Mass/Vol] 4.0 g/dL Normal 3.4-4.8 [facility] Comment on above: Performed By: #### L 504.2610, L500.4050, L100.0100 ####[facility] [address] [place], [address] Albumin/Globulin [Mass ratio] 1.4 {ratio} Normal 0.9-2.4 [facility] Comment on above: Performed By: #### L 504.2610, L500.4050, L100.0100 ####[facility] [address] [place], [address] ALK PHOS 47 U/L Normal 40-129 [facility] Comment on above: Performed By: #### L 504.2610, L500.4050, L100.0100 ####[facility] [address] [place], [address] ALT [Catalytic activity/Vol] 47 U/L Normal <=46 [facility] Comment on above: Performed By: #### L 504.2610, L500.4050, L100.0100 ####[facility] [address] [place], [address] AST [Catalytic activity/Vol] 37 U/L Normal <=37 [facility] Comment on above: Performed By: #### L 504.2610, L500.4050, L100.0100 ####[facility] [address] [place], [address] Bilirubin [Mass/Vol] 0.39 mg/dL Normal 0.00-1.30 [facility] Comment on above: Performed By: #### L 504.2610, L500.4050, L100.0100 ####[facility] [address] [place], [place], [address] BUN/CRE 8.0 RATIO Low 10-20 [facility] Comment on above: Performed By: #### L 504.2610, L500.4050, L100.0100 ####[facility] [address] [place], [address] Calcium [Mass/Vol] 9.7 mg/dL Normal 7.6-11.0 [facility] Comment on above: Performed By: #### L 504.2610, L500.4050, L100.0100 ####[facility] [address] [place], [address] Chloride [Moles/Vol] 100 mmol/L Normal 98-108 [facility] Comment on above: Performed By: #### L 504.2610, L500.4050, L100.0100 ####[facility] [address] [place], [address] CO2 [Moles/Vol] 26.0 mmol/L Normal 21.0-32.0 [facility] Comment on above: Performed By: #### L 504.2610, L500.4050, L100.0100 ####[facility] [address] [place], [address] Creatinine [Mass/Vol] 1.89 mg/dL High 0.70-1.20 [facility] Comment on above: Performed By: #### L 504.2610, L500.4050, L100.0100 ####[facility] [address] [place], [address] GAP 10 Normal 5-15 [facility] Comment on above: Performed By: #### L 504.2610, L500.4050, L100.0100 ####[facility] [address] [place], [address] GFR/1.73 sq M.predicted among non-blacks MDRD (S/P/Bld) [Vol rate/Area] 40 mL/min/{1.73_m2} Low >60 [facility] Comment on above: Result Comment: mL/m in/1.73m2 CKD-EPI Creatinine Equation (2020) Performed By: #### L 504.2610, L500.4050, L100.0100 ####[facility] [address] [place], [address] Globulin (S) [Mass/Vol] 2.8 g/dL Normal 2.2-4.2 [facility] Comment on above: Performed By: #### L 504.2610, L500.4050, L100.0100 ####[facility] [address] [place], [address] Glucose [Mass/Vol] 97 mg/dL Normal 70-99 [facility] Comment on above: Performed By: #### L 504.2610, L500.4050, L100.0100 ####[facility] [address] [place], [address] Potassium [Moles/Vol] 4.5 mmol/L Normal 3.3-5.1 [facility] Comment on above: Performed By: #### L 504.2610, L500.4050, L100.0100 ####[facility] [address] [place], [address] Sodium [Moles/Vol] 136 mmol/L Normal 133-145 [facility] Comment on above: Performed By: #### L 504.2610, L500.4050, L100.0100 ####[facility] [address] [place], [address] T PROT 6.7 g/dL Normal 5.9-8.4 [facility] Comment on above: Performed By: #### L 504.2610, L500.4050, L100.0100 ####[facility] [address] [place], [address] Urea nitrogen [Mass/Vol] 15 mg/dL Normal 4-19 [facility] Comment on above: Performed By: #### L 504.2610, L500.4050, L100.0100 ####[facility] [address] [place], [address] Eosinophil percentageOrdered By: Dangelo Botello on 06-20-2024 Eosinophils/100 WBC (Bld) 0.5 % 0-5 [facility] Erythrocyte distribution wid th (RBC) [Ratio]Ordered By: Dangelo Botello on 06-20-2024 Erythrocyte distribution width (RBC) [Entitic vol] 62.4 fL High 35.1-43.9 [facility] Erythrocyte distribution wid th ratioOrdered By: Dangelo Botello on 06-20-2024 Erythrocyte distribution width (RBC) [Ratio] 17.2 % High 11.6-14.6 [facility] Erythrocyte distribution wid th standard deviationOrdered By: Dangelo Botello on 06-20-2024 Erythrocyte distribution width (RBC) [Ratio] 62.4 fl High 35.1-43.9 [facility] GFR/1.73 sq M.predicted martin g non-blacks MDRD (S/P/Bld) [Vol rate/Area]Ordered By: Dangelo Botello on 06-20-2024 Estimated GFR (MDRD) Non-Af Amer 40 Low >60 [facility] Comment on above: mL/min/1.73m2 CKD-EP I Creatinine Equation (2020) Glomerular filtration rate ( GFR) estimation/1.73 sq m using serum, plasma, or whole bOrdered By: Dangelo Botello on 06-20-2024 GFR/1.73 sq M.predicted among non-blacks MDRD (S/P/Bld) [Vol rate/Area] 40 mL/min/{1.73_m2} Low >60 [facility] Comment on above: mL/min/1.73m2 CKD-EP I Creatinine Equation (2020) Hematocrit Auto (Bld) [Volum e fraction]Ordered By: Dangelo Botello on 06-20-2024 Hematocrit (Bld) [Volume fraction] 41.0 % 40-54 [facility] Hemoglobin measurementOrdere d By: Dangelo Botello on 06-20-2024 Hemoglobin (Bld) [Mass/Vol] 13.8 g/dL 13.0-16.5 [facility] Immature granulocytes/100 WB C Auto (Bld)Ordered By: Dangelo Botello on 06-20-2024 Immature granulocytes/100 WBC (Bld) 1.400 % High 0.0-0.9 [facility] Comment on above: IG% - Immature Granu locytes (promyelocytes, myelocytes and metamyelocytes) > 1% indicates that a LEFT SHIFT is Present. LDHon 06-20-2024 LDH 249 U/L High 87-241 [facility] Comment on above: Order Comment: 1 Performed By: #### L 504.2610, L500.4050, L100.0100 ####[facility] [address] [place], [address] Laboratory - Chemistry and C hemistry - challengeOrdered By: Dangelo Botello on 06-20-2024 AST [Catalytic activity/Vol] 37 U/L <38 [facility] Lactate dehydrogenase (LDH) measurementOrdered By: Dangelo Botello on 06-20-2024 LDH [Catalytic activity/Vol] 249 U/L High 87-241 [facility] Lymphocytes Auto (Unsp spec) [#/Vol]Ordered By: Dangelo Botello on 06-20-2024 Lymphocytes (Bld) [#/Vol] 1.11 10*3/uL 0.83-4.51 [facility] Lymphocytes/100 WBC Auto (Un sp spec)Ordered By: Dangelo Botello on 06-20-2024 Lymphocytes/100 WBC (Bld) 18.8 % Low 19-41 [facility] MCV (mean corpuscular volume ) determinationOrdered By: Dangelo Botello on 06-20-2024 MCV (RBC) [Entitic vol] 99.0 fL High 80-94 [facility] Mean corpuscular hemoglobin (MCH) determinationOrdered By: Dangelo Botello on 06-20-2024 MCH (RBC) [Entitic mass] 33.3 pg High 27.0-32.0 [facility] Mean corpuscular hemoglobin concentration (MCHC) determinationOrdered By: Dangelo Botello on 06-20-2024 MCHC (RBC) [Mass/Vol] 33.7 g/dL 32-36 [facility] Mean platelet volume determi nationOrdered By: Dangelo Botello on 06-20-2024 Platelet mean volume (Bld) [Entitic vol] 10.8 fL 6.2-12.0 [facility] Monocyte percentageOrdered B y: Dangelo Botello on 06-20-2024 Monocytes/100 WBC (Bld) 6.9 % 0-10 [facility] Neutrophil percentageOrdered By: Dangelo Botello on 06-20-2024 Neutrophils/100 WBC (Bld) 72.1 % High 47-70 [facility] Nucleated red blood cell per centageOrdered By: Dangelo Botello on 06-20-2024 Nucleated RBC/100 WBC (Bld) [Ratio] 0 % 0-5 [facility] Oncology Visit Reporton 06-06 Oncology Visit Report [facility] [place] [address] OFFICE VISIT Date of Service: 06/20/24 1334 MR#: [id number] Acct: [id number] Name: YEFRI YANEZ Rep #: [id number] : 1965 From: Dangelo Botello MD Age/Sex: 59/M Location: [facility] Status: Signed HPI Subjective Date of Service [...] for follow up after CT. Feeling well [facility] Medical History Abnormal chest x-ray Warfarin-induced coagulopathy [...] Rx spiron (more content not included)... Normal [facility] Platelet countOrdered By: Raeann Botello on 06-20-2024 Platelets (Bld) [#/Vol] 233 10*3/uL 150-450 [facility] Potassium (Unsp spec) [Mass/ Vol]Ordered By: Dangelo Botello on 06-20-2024 Potassium [Moles/Vol] 4.5 mmol/L 3.3-5.1 [facility] Potassium measurement (mass/ volume)Ordered By: Dangelo Botello on 06-20-2024 Potassium (Unsp spec) [Mass/Vol] 4.5 mmol/L 3.3-5.1 [facility] RBC Auto (Bld) [#/Vol]Ordere d By: Dangelo Botello on 06-20-2024 RBC (Bld) [#/Vol] 4.14 10*6/uL Low 4.6-6.2 [facility] Serum creatinine measurement (mass/volume)Ordered By: Dangelo Botello on 06-20-2024 Creatinine [Mass/Vol] 1.89 mg/dL High 0.70-1.20 [facility] Serum globulin measurementOr dered By: Dangelo Botello on 06-20-2024 Globulin (S) [Mass/Vol] 2.8 g/dL 2.2-4.2 [facility] Serum glucose measurement (m ass/volume)Ordered By: Dangelo Botello on 06-20-2024 Glucose [Mass/Vol] 97 mg/dL 70-99 [facility] Serum or plasma alanine stafford otransferase (ALT) measurementOrdered By: Dangelo Botello on 06-20-2024 ALT [Catalytic activity/Vol] 47 U/L <47 [facility] Serum or plasma albumin cory urement (mass/volume)Ordered By: Dangelo Botello on 06-20-2024 Albumin [Mass/Vol] 4.0 g/dL 3.4-4.8 [facility] Serum or plasma albumin/glob ulin mass ratioOrdered By: Dangelo Botello on 06-20-2024 Albumin/Globulin [Mass ratio] 1.4 {ratio} 0.9-2.4 [facility] Serum or plasma alkaline damaso sphatase measurementOrdered By: Dangelo Botello on 06-20-2024 ALP [Catalytic activity/Vol] 47 U/L 40-129 [facility] Serum or plasma calcium cory urement (mass/volume)Ordered By: Dangelo Botello on 06-20-2024 Calcium [Mass/Vol] 9.7 mg/dL 7.6-11.0 [facility] Serum or plasma urea nitroge n measurement (mass/volume)Ordered By: Dangelo Botello on 06-20-2024 Urea nitrogen [Mass/Vol] 15 mg/dL 4-19 [facility] Sodium levelOrdered By: Bruno Botello on 06-20-2024 Sodium [Moles/Vol] 136 mmol/L 133-145 [facility] Total proteinOrdered By: Jose Botello on 06-20-2024 Protein [Mass/Vol] 6.7 g/dL 5.9-8.4 [facility] White blood cell (WBC) count Ordered By: Dangelo Botello on 06-20-2024 WBC (Bld) [#/Vol] 5.9 10*3/uL 4.4-11.0 [facility] CREATININE FINGERSTICKon CREATININE WB < 1.0 Normal 0.70-1.30 [facility] Comment on above: Performed By: #### L 503.0106, L506.1001 #### [facility] Laboratory [address] [place], [address] EGFR WB > 60.0000 Normal >60 [facility] Comment on above: Performed By: #### L 503.0106, L506.1001 #### [facility] Laboratory [address] [place], [address] CT Chest, Abd, Pel w/Contras ton 06-13-2024 CT Chest, Abd, Pel w/Contrast [facility] Imaging Services [address] [place] [address] CT Chest, Abd, Pel w/Contrast MR#: [id number] Acct: [id number] Name: YEFRI YANEZ Rep #: [id number] : 1965 M 59 From: Carla Garcia MD PCP: Dr. Daksha Turner MD Status: REG CLI Study: CT Chest, Abd, Pel w/Contrast Date of Exam: Exam# [id number] Ordering Dr: Dangelo Botello MD PROCEDURE: CT [...] post right-sided nephrectomy. Reading Location: [facility] CC: Dr. Daksha Turner MD; Dr. 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 Food Supervisor: Signed Normal [facility] Creatinine measurement at be dsideOrdered By: Dangelo Botello on 06-13-2024 Bedside Creatinine < 1.0 mg/dL 0.70-1.30 [facility] EGFROrdered By: Dangelo Botello on 06-13-2024 Bedside Estimated GFR (eGFR) > 60.0000 mL/min >60 [facility] GFR/1.73 sq M.predicted among non-blacks MDRD (S/P/Bld) [Vol rate/Area] mL/min/{1.73_m2} >60 [facility] 85-VY-Cexektn DOrdered By: Tangela Chiu on 03-22-2024 Vitamin D 25-Hydroxy 30.8 ng/mL [facility] Comment on above: Vitamin D 25([place]) Sta tus Range Deficiency <20 ng/mL (50nmol/L) Insufficiency 20 - 30 ng/mL (50 - 75 nmol/L) Sufficiency 30 - 100 ng/mL (75 - 250 nmol/L) Toxicity >100 ng/mL (>250 nmol/L) Blood urea nitrogen (BUN)/cr eatinine ratioOrdered By: Isidra Chiu on 03-22-2024 Urea nitrogen/Creatinine [Mass ratio] 10.8 mg/mg 10-20 [facility] Carbon dioxide measurementOr dered By: Isidra Chiu on 03-22-2024 CO2 [Moles/Vol] 26.0 mmol/L 21.0-32.0 [facility] Chloride measurementOrdered By: Isidra Chiu on 03-22-2024 Chloride [Moles/Vol] 107 mmol/L 98-107 [facility] Estimated glomerular filtrat ion rate (GFR) AmericanOrdered By: Isidra Chiu on 03-22-2024 Estimated GFR (MDRD) Amer 39 mL/min Low >60 [facility] Comment on above: GFR Calc Glomerular filtration rate ( GFR) estimationOrdered By: Isidra Chiu on 03-22-2024 Estimated GFR (MDRD) Non-Af Amer 32 mL/min Low >60 [facility] Comment on above: Non- GFR Calc Glucose measurementOrdered B y: Isidra Chiu on 03-22-2024 Glucose [Mass/Vol] 118 mg/dL High 74-106 [facility] Comment on above: Fasting Glucose resu lt from 100 to 125 mg/dL suggests IMPAIRED HOMEOSTASIS per A.D.A. criteria. Phosphorus measurementOrdere d By: Isidra Chiu on 03-22-2024 Phosphorus Level 2.6 mg/dL 2.5-4.9 [facility] Potassium measurementOrdered By: Isidra Chiu on 03-22-2024 Potassium [Moles/Vol] 4.3 mmol/L 3.5-5.1 [facility] Renal Profileon 03-22-2024 Albumin [Mass/Vol] 3.1 g/dL Low 3.2-5.0 [facility] Comment on above: Performed By: #### L 506.1000, L500.3600 ####[facility] [address] [place], [address] BUN/CRE 10.8 RATIO Normal 10-20 [facility] Comment on above: Performed By: #### L 506.1000, L500.3600 ####[facility] [address] [place], [address] CA,Total 8.3 mg/dL Low 8.5-10.1 [facility] Comment on above: Performed By: #### L 506.1000, L500.3600 ####[facility] [address] [place], [address] Chloride [Moles/Vol] 107 mmol/L Normal 98-107 [facility] Comment on above: Performed By: #### L 506.1000, L500.3600 ####[facility] [address] [place], [address] CO2 [Moles/Vol] 26.0 mmol/L Normal 21.0-32.0 [facility] Comment on above: Performed By: #### L 506.1000, L500.3600 ####[facility] [address] [place], [address] Creatinine [Mass/Vol] 2.22 mg/dL High 0.70-1.30 [facility] Comment on above: Result Comment: The validity of the calculated GFR GFRAA in patients over 70 years has not been determined. Clinical correlation is essential. Performed By: #### L 506.1000, L500.3600 ####[facility] [address] [place], [address] EST GFR - AA 39 mL/min Low >60 [facility] Comment on above: Result Comment: Afri can Ugandan GFR Calc Performed By: #### L 506.1000, L500.3600 ####[facility] [address] [place], [address] GFR/1.73 sq M.predicted among non-blacks MDRD (S/P/Bld) [Vol rate/Area] 32 mL/min/{1.73_m2} Low >60 [facility] Comment on above: Result Comment: Non- GFR Calc Performed By: #### L 506.1000, L500.3600 ####[facility] [address] [place], [address] Glucose [Mass/Vol] 118 mg/dL High 74-106 [facility] Comment on above: Result Comment: Fast ing Glucose result from 100 to 125 mg/dL suggests IMPAIRED HOMEOSTASIS per A.D.A. criteria. Performed By: #### L 506.1000, L500.3600 ####[facility] [address] [place], [address] Phosphate [Mass/Vol] 2.6 mg/dL Normal 2.5-4.9 [facility] Comment on above: Performed By: #### L 506.1000, L500.3600 ####[facility] [address] [place], [address] Potassium [Moles/Vol] 4.3 mmol/L Normal 3.5-5.1 [facility] Comment on above: Performed By: #### L 506.1000, L500.3600 ####[facility] [address] [place], [address] Sodium [Moles/Vol] 138 mmol/L Normal 136-145 [facility] Comment on above: Performed By: #### L 506.1000, L500.3600 ####[facility] [address] [place], [address] Urea nitrogen [Mass/Vol] 24 mg/dL High 7-18 [facility] Comment on above: Performed By: #### L 506.1000, L500.3600 ####[facility] [address] [place], [address] Serum or plasma albumin cory urement (mass/volume)Ordered By: Isidra Chiu on 03-22-2024 Albumin [Mass/Vol] 3.1 g/dL Low 3.2-5.0 [facility] Serum or plasma calcium cory urement (mass/volume)Ordered By: Isidra Chiu on 03-22-2024 Calcium [Mass/Vol] 8.3 mg/dL Low 8.5-10.1 [facility] Serum or plasma creatinine m easurement (mass/volume)Ordered By: Isidra Chiu on 03-22-2024 Creatinine [Mass/Vol] 2.22 mg/dL High 0.70-1.30 [facility] Comment on above: The validity of the calculated GFR & GFRAA in patients over 70 years has not been determined. Clinical correlation is essential. Serum or plasma urea nitroge n measurement (mass/volume)Ordered By: Isidra Chiu on 03-22-2024 Urea nitrogen [Mass/Vol] 24 mg/dL High 7-18 [facility] Sodium levelOrdered By: Shawna Chiu on 03-22-2024 Sodium [Moles/Vol] 138 mmol/L 136-145 [facility] Vitamin D,25 Hydroxyon 03-22 Vitamin D 25-OH 30.8 ng/mL Normal [facility] Comment on above: Result Comment: Constanza min D 25(OH) Status Range Deficiency <20 ng/mL (50nmol/L) Insufficiency 20 - 30 ng/mL (50 - 75 nmol/L) Sufficiency 30 - 100 ng/mL (75 - 250 nmol/L) Toxicity >100 ng/mL (>250 nmol/L) Performed By: #### L 506.1000, L500.3600 ####[facility] [address] [facility] [place], [place], [address] Low Dose CT Lung Screeningon 02-08-[address] Lung Screening [facility] Imaging Services [address] [place], [place] [address] Low Dose CT Lung Screening MR#: [id number] Acct: [id number] Name: YEFRI YANEZ Rep #: [id number] : 1965 M 59 From: Rony amador MD PCP: Dr. Daksha Turner MD Status: REG CLI Study: Low Dose CT Lung Screening Date of Exam: 02/07 Exam# [id number] Ordering Dr: Daksha Turner [id number] STUDY: LOW DOSE CT LUNG CANCER SCREENING [...] additional features (more content not included)... Normal [facility] Sex Hormone-binding Globulin on 01-13-2024 SHBG 23.8 nmol/L Normal 19.3-76.4 [facility] Comment on above: Order Comment: Order Date: 09/25/24 Order Info: [id number] - BMP Order Info: [id number] - MG Order Info: [id number] - FE Order Info: [id number] - MARTIN Result Comment: Perf ormed at: - [facility] [address] [id number] Ankle Patch Molder: Elías Moreau PhD, Phone: [phone] Performed By: #### L 503.0109, L584.1005 #### [facility] [address] [facility] [place], [place], [address] Abd Inc Decub and/or Erecton 01-11-2024 Abd Inc Decub and/or Erect [facility] Imaging Services [address] [place], [place] [address] Abd Inc Decub and/or Erect MR#: [id number] Acct: [id number] Name: YEFRI YANEZ Rep #: [id number] : 1965 M 59 From: Lul Peters MD PCP: Dr. Daksha Turner MD Status: [facility] Study: Abd Inc Decub and/or Erect Date of Exam: 01/10 Exam# [id number] Ordering Dr: Daksha Turner [id number] STUDY: X-RAY - ABDOMEN/PELVIS REASON FOR EXAM: [...] EST , CC: Dr. Daksha Turner MD Fast Food Supervisor: Signed Normal [facility] FSH and LHon 01-11-2024 FSH 3.4 mIU/mL Normal [facility] Comment on above: Order Comment: Order Date: 09/25/24 Order Info: [id number] - BMP Order Info: [id number] - MG Order Info: [id number] Order Info: [id number] - MARTIN Result Comment: NORMAL REFERENCE RANGES FEMALE FOLLICULAR 2.3 - 12.6 mIU/mL MID-CYCLE PEAK 5.2 - 17.5 mIU/mL LUTEAL 1.7 - 12.9 mIU/mL POST-MENOPAUSAL ON MHT 5.9 - 72.8 mIU/mL NOT ON MHT 12.7 - 132.2 mlU/mL MALE 0.7 - 10.8 mIU/mL Performed By: #### L 503.0106, L506.1001 #### [facility] [address] [place] [address]. [place], [address] LH 4.5 mIU/mL [facility] Comment on above: Order Comment: Order Date: 09/25/24 Order Info: [id number] - BMP Order Info: [id number] - MG Order Info: [id number] - Order Info: [id number] - MARTIN Result Comment: NORMAL REFERENCE RANGES FEMALE FOLLICULAR 1.9 - 26.2 mIU/mL MID-CYCLE PEAK 22.8 - 76.1 mIU/mL LUTEAL 0.6 - 16.6 mIU/mL POST-MENOPAUSAL ON MHT 1.1 - 52.4 mIU/mL NOT ON MHT 8.6 - 61.8 mIU/mL MALE 1.2 - 10.6 mIU/mL Performed By: #### L 503.0106, L506.1001 #### [facility] [address] [place], [address] Testosterone, Serum Totalon 01-11-2024 Testosterone [Mass/Vol] 398.15 ng/dL Normal [facility] Comment on above: Order Comment: Order Date: 09/25/24 Order Info: [id number] - BMP Order Info: [id number] - MG Order Info: [id number] - FE Order Info: [id number] - MARTIN Result Comment: CENT RAL 90% REFERENCE RANGES MALE AGE <50 197.44 - 669.58 ng/dL MALE AGE > or = 50 187.72 - 684.19 ng/dL FEMALE AGE <50 8.38 - 35.01 ng/dL FEMALE AGE > or = 50 <7.00 - 35.92 ng/dL Effective as of 10/01/20 Performed By: #### [place] 503.0106, L506.1001 #### [facility] [address] [place], [address] L5000.0012on 12-25-2023 Vitamin B12 Normal [facility] Comment on above: Result Comment: TEST RESULTS LIMITS Vitamin B12 291 pg/mL [id number] [facility] ORIGINAL REPORT ON FILE IN LAB CONTAINS ADDITIONAL TEST SITE INFORMATION. Performed By: #### L 503.0106, L506.1001 #### [facility] [address] [place], [address] CBC-Complete Blood Cnt No Di ffon 12-22-2023 Erythrocyte distribution width (RBC) [Ratio] 16.7 % High 11.6-14.6 [facility] Comment on above: Order Comment: Order Date: 09/25/24 Order Info: [id number] - BMP Order Info: [id number] - MG Order Info: [id number] - FE Order Info: [id number] - MARTIN Performed By: #### L 503.0106, L506.1001 #### [facility] [address] [place], [place], [address] Hematocrit (Bld) [Volume fraction] 43.7 % Normal 40-54 [facility] Comment on above: Order Comment: Order Date: 09/25/24 Order Info: [id number] - BMP Order Info: [id number] - MG Order Info: [id number] - FE Order Info: [id number] - MARTIN Performed By: #### L 503.0106, L506.1001 #### [facility] [address] [place], [place], [address] Hemoglobin (Bld) [Mass/Vol] 14.8 g/dL Normal 13.0-16.5 [facility] Comment on above: Order Comment: Order Date: 09/25/24 Order Info: [id number] - BMP Order Info: [id number] - MG Order Info: [id number] - FE Order Info: [id number] - MARTIN Performed By: #### L 503.0106, L506.1001 #### [facility] [address] [place], [place], [address] MCH (RBC) [Entitic mass] 34.1 pg High 27.0-32.0 [facility] Comment on above: Order Comment: Order Date: 09/25/24 Order Info: [id number] - BMP Order Info: [id number] - MG Order Info: [id number] - FE Order Info: [id number] - MARTIN Performed By: #### L 503.0106, L506.1001 #### [facility] [address] [place], [place], [address] MCHC (RBC) [Mass/Vol] 33.9 g/dL Normal 32-36 [facility] Comment on above: Order Comment: Order Date: 09/25/24 Order Info: [id number] - BMP Order Info: [id number] - MG Order Info: [id number] - FE Order Info: [id number] - MARTIN Performed By: #### L 503.0106, L506.1001 #### [facility] [address] [place], [address] MCV (RBC) [Entitic vol] 100.7 fL High 80-94 [facility] Comment on above: Order Comment: Order Date: 09/25/24 Order Info: 666-03 - BMP Order Info: 84963-5 - MG Order Info: 2497-06 - FE Order Info: 2275-06 - MARTIN Performed By: #### L 503.0106, L506.1001 #### [facility] [address] [place], [address] Platelet mean volume (Bld) [Entitic vol] 11.4 fL Normal 6.2-12.0 [facility] Comment on above: Order Comment: Order Date: 09/25/24 Order Info: 666-03 - BMP Order Info: 72925-6 - MG Order Info: 24910-09 - FE Order Info: 2275-06 - MARTIN Performed By: #### L 503.0106, L506.1001 #### [facility] [address] [place], [address] Platelets (Bld) [#/Vol] 219 10*3/uL Normal 150-450 [facility] Comment on above: Order Comment: Order Date: 09/25/24 Order Info: 666-03 - BMP Order Info: 93181-3 - MG Order Info: 2497-06 - FE Order Info: 2275-06 - MARTIN Performed By: #### L 503.0106, L506.1001 #### [facility] [address] [place], [place], [address] RBC (Bld) [#/Vol] 4.34 10*6/uL Low 4.6-6.2 [facility] Comment on above: Order Comment: Order Date: 09/25/24 Order Info: 0667-1 - BMP Order Info: 64713-0 - MG Order Info: 4 - FE Order Info: 2275-06 - MARTIN Performed By: #### L 503.0106, L506.1001 #### [facility] [address] [place], [place], [address] RDW SD 62.4 fl High 35.1-43.9 [facility] Comment on above: Order Comment: Order Date: 09/25/24 Order Info: 666-03 - BMP Order Info: 64508-7 - MG Order Info: 2497-06 - FE Order Info: 2275-06 - MARTIN Performed By: #### L 503.0106, L506.1001 #### [facility] [address] [place], [place], [address] WBC (Bld) [#/Vol] 7.6 10*3/uL Normal 4.4-11.0 [facility] Comment on above: Order Comment: Order Date: 09/25/24 Order Info: 0667- - BMP Order Info: 05480-8 - MG Order Info: 2497-06 - FE Order Info: 2275-06 - MARTIN Performed By: #### L 503.0106, L506.1001 #### [facility] [address] [place], [place], [address] Comprehensive Metabolic Prof ilon 12-22-2023 Albumin [Mass/Vol] 3.2 g/dL Normal 3.2-5.0 [facility] Comment on above: Order Comment: Order Date: 09/25/24 Order Info: 0667-1 - BMP Order Info: 83984-5 - MG Order Info: 2497-06 - FE Order Info: 2275-06 - MARTIN Performed By: #### L 503.0106, L506.1001 #### [facility] [address] [place], [address] Albumin/Globulin [Mass ratio] 0.9 {ratio} Normal 0.9-2.4 [facility] Comment on above: Order Comment: Order Date: 09/25/24 Order Info: 666-03 - BMP Order Info: 23718-7 - MG Order Info: 2497-06 - FE Order Info: 2275-06 - MARTIN Performed By: #### L 503.0106, L506.1001 #### [facility] [address] [place], [address] ALK P 64 U/L Normal 45-117 [facility] Comment on above: Order Comment: Order Date: 09/25/24 Order Info: 666-03 - BMP Order Info: 99566-2 - MG Order Info: 2497-06 - FE Order Info: 2275-06 - MARTIN Performed By: #### L 503.0106, L506.1001 #### [facility] [address] [place], [address] ALT [Catalytic activity/Vol] 48 U/L Normal 16-61 [facility] Comment on above: Order Comment: Order Date: 09/25/24 Order Info: 666-03 - BMP Order Info: 31163-8 - MG Order Info: 24910-09 - FE Order Info: 2275-06 - MARTIN Performed By: #### L 503.0106, L506.1001 #### [facility] [address] [place], [address] AST [Catalytic activity/Vol] 37 U/L Normal 15-37 [facility] Comment on above: Order Comment: Order Date: 09/25/24 Order Info: 666-03 - BMP Order Info: 06209-0 - MG Order Info: 24910-09 - FE Order Info: 4 - MARTIN Performed By: #### L 503.0106, L506.1001 #### [facility] [address] [place], [address] Bilirubin [Mass/Vol] 0.50 mg/dL Normal 0.20-1.00 [facility] Comment on above: Order Comment: Order Date: 09/25/24 Order Info: 0667-1 - BMP Order Info: 06911-1 - MG Order Info: 2497-4 - FE Order Info: 2275-4 - MARTIN Result Comment: For patients on eltrombopag therapy, use of Dimension Carman TBIL is not recommended. Performed By: #### L 503.0106, L506.1001 #### [facility] [address] [place], [place], [address] (788) BUN/CRE 10.2 RATIO Normal 10-20 [facility] Comment on above: Order Comment: Order Date: 09/25/24 Order Info: 06 - BMP Order Info: 76630-1 - MG Order Info: 2497-06 - FE Order Info: 2275-06 - MARTIN Performed By: #### L 503.0106, L506.1001 #### [facility] [address] [place], [address] CA,Total 9.0 mg/dL Normal 8.5-10.1 [facility] Comment on above: Order Comment: Order Date: 09/25/24 Order Info: 06- - BMP Order Info: 76009-3 - MG Order Info: 24910-09 - FE Order Info: 2275-06 - MARTIN Performed By: #### L 503.0106, L506.1001 #### [facility] [address] [place], [address] Chloride [Moles/Vol] 106 mmol/L Normal 98-107 [facility] Comment on above: Order Comment: Order Date: 09/25/24 Order Info: 0667-1 - BMP Order Info: 42282-6 - MG Order Info: 2497-06 - FE Order Info: 2275-06 - MARTIN Performed By: #### L 503.0106, L506.1001 #### [facility] [address] [place], [place], [address] CO2 [Moles/Vol] 25.0 mmol/L Normal 21.0-32.0 [facility] Comment on above: Order Comment: Order Date: 09/25/24 Order Info: 666-1 - BMP Order Info: 03821-8 - MG Order Info: 4 - FE Order Info: 2275-06 - MARTIN Performed By: #### L 503.0106, L506.1001 #### [facility] [address] [place], [address] Creatinine [Mass/Vol] 1.86 mg/dL High 0.70-1.30 [facility] Comment on above: Order Comment: Order Date: 09/25/24 Order Info: 666- - BMP Order Info: 33342-4 - MG Order Info: 2497-06 - FE Order Info: 2275-06 - MARTIN Result Comment: The validity of the calculated GFR GFRAA in patients over 70 years has not been determined. Clinical correlation is essential. Performed By: #### L 503.0106, L506.1001 #### [facility] [address] [place], [address] EST GFR - AA 48 mL/min Low >60 [facility] Comment on above: Order Comment: Order Date: 09/25/24 Order Info: 666-03 - BMP Order Info: 01362-8 - MG Order Info: 2497-06 - FE Order Info: 2275-06 - MARTIN Result Comment: Afri can [place] GFR Calc Performed By: #### L 503.0106, L506.1001 #### [facility] [address] [place], [address] GAP 7 Normal 5-15 [facility] Comment on above: Order Comment: Order Date: 09/25/24 Order Info: 666- - BMP Order Info: 20030-9 - MG Order Info: 2497-06 - FE Order Info: 2275-06 - MARTIN Performed By: #### L 503.0106, L506.1001 #### [facility] [address] [place], [address] GFR/1.73 sq M.predicted among non-blacks MDRD (S/P/Bld) [Vol rate/Area] 40 mL/min/{1.73_m2} Low >60 [facility] Comment on above: Order Comment: Order Date: 09/25/24 Order Info: 0667- - BMP Order Info: 49137-8 - MG Order Info: 2497-06 - FE Order Info: 2275-4 - MARTIN Result Comment: Non- GFR Calc Performed By: #### L 503.0106, L506.1001 #### [facility] [address] [place], [address] Globulin (S) [Mass/Vol] 3.4 g/dL Normal 2.2-4.2 [facility] Comment on above: Order Comment: Order Date: 09/25/24 Order Info: 06- - BMP Order Info: 27696-5 - MG Order Info: 2497-06 - FE Order Info: 2275-06 - MARTIN Performed By: #### L 503.0106, L506.1001 #### [facility] [address] [place], [address] Glucose [Mass/Vol] 115 mg/dL High 74-106 [facility] Comment on above: Order Comment: Order Date: 09/25/24 Order Info: 0667-1 - BMP Order Info: 14390-9 - MG Order Info: 2497-06 - FE Order Info: 2275-4 - MARTIN Result Comment: Fast ing Glucose result from 100 to 125 mg/dL suggests IMPAIRED HOMEOSTASIS per A.D.A. criteria. Performed By: #### L 503.0106, L506.1001 #### [facility] [address] [place], [place], [address] Potassium [Moles/Vol] 4.3 mmol/L Normal 3.5-5.1 [facility] Comment on above: Order Comment: Order Date: 09/25/24 Order Info: 0667- - BMP Order Info: 67623-3 - MG Order Info: 2498-4 - FE Order Info: 6-4 - MARTIN Performed By: #### L 503.0106, L506.1001 #### [facility] [address] [place], [address] Sodium [Moles/Vol] 138 mmol/L Normal 136-145 [facility] Comment on above: Order Comment: Order Date: 09/25/24 Order Info: 666- - BMP Order Info: 75422-3 - MG Order Info: 24984 - FE Order Info: 4 - MARTIN Performed By: #### L 503.0106, L506.1001 #### [facility] [address] [place], [place], [address] T PROT 6.6 g/dL Normal 6.4-8.2 [facility] Comment on above: Order Comment: Order Date: 09/25/24 Order Info: 666-03 - BMP Order Info: 08782-7 - MG Order Info: 24984 - FE Order Info: 4 - MARTIN Performed By: #### L 503.0106, L506.1001 #### [facility] [address] [place], [place], [address] Urea nitrogen [Mass/Vol] 19 mg/dL High 7-18 [facility] Comment on above: Order Comment: Order Date: 09/25/24 Order Info: 666-03 - BMP Order Info: 62351-2 - MG Order Info: 2498-4 - FE Order Info: 227-4 - MARTIN Performed By: #### L 503.0106, L506.1001 #### [facility] [address] [place], [address] Ferritinon 12-22-2023 Ferritin [Mass/Vol] 452 ng/mL High 26-388 [facility] Comment on above: Order Comment: Order Date: 09/25/24 Order Info: 666- - BMP Order Info: 82950-3 - MG Order Info: 2498-4 - FE Order Info: 2275-06 - MARTIN Performed By: #### L 503.0106, L506.1001 #### [facility] [address] [place], [address] Ironon 12-22-2023 Iron [Mass/Vol] 92 ug/dL Normal 65-175 [facility] Comment on above: Order Comment: Order Date: 09/25/24 Order Info: 666- - BMP Order Info: 02067-0 - MG Order Info: 2497-06 FE Order Info: 2275-06 - MARTIN Performed By: #### L 503.0106, L506.1001 #### [facility] [address] [place], [address] Lipid Profileon 12-22-2023 Cholesterol [Mass/Vol] 112 mg/dL Normal 200 [facility] Comment on above: Order Comment: Order Date: 09/25/24 Order Info: 666-03 - BMP Order Info: 50005-3 - MG Order Info: 2497-06 FE Order Info: 2275-06 - MARTIN Result Comment: <200 mg/dL Desirable 200-240 mg/dL Borderline >240 mg/dL High Risk Performed By: #### L 503.0106, L506.1001 #### [facility] [address] [place], [address] Cholesterol in HDL [Mass/Vol] 44 mg/dL Normal [facility] Comment on above: Order Comment: Order Date: 09/25/24 Order Info: 06- - BMP Order Info: 35468-6 - MG Order Info: 2497-06 - FE Order Info: 2275-06 - MARTIN Result Comment: The drugs N-Acetylcysteine and Metamizole may falsely depress this assay. Reference Range HDL <40 mg/dL Low HDL Cholesterol HDL >or= 60 mg/dL High HDL Cholesterol Performed By: #### L 503.0106, L506.1001 #### [facility] [address] [place], [address] Cholesterol in LDL [Mass/Vol] 47 mg/dL Normal 0-130 [facility] Comment on above: Order Comment: Order Date: 09/25/24 Order Info: 06- - BMP Order Info: 50532-0 - MG Order Info: 2497-06 Order Info: 2275-06 - MARTIN Performed By: #### L 503.0106, L506.1001 #### [facility] [address] [place], [address] Cholesterol in VLDL [Mass/Vol] 21 mg/dL Normal 5-40 [facility] Comment on above: Order Comment: Order Date: 09/25/24 Order Info: 666-03 - BMP Order Info: 20101-5 - MG Order Info: 2497-06 Order Info: 2275-06 - MARTIN Performed By: #### L 503.0106, L506.1001 #### [facility] [address] [place], [address] Triglyceride [Mass/Vol] 104 mg/dL Normal [facility] Comment on above: Order Comment: Order Date: 09/25/24 Order Info: 666-03 - BMP Order Info: 32265-0 - MG Order Info: 2497-06 Order Info: 2275-06 - MARTIN Result Comment: The drugs N-Acetylcysteine and Metamizole may falsely depress this assay. Serum Triglycerides Reference Interval Normal <150 mg/dL Borderline high 150 - 199 mg/dL High 200 - 499 mg/dL Very High > or = 500 mg/dL Performed By: #### L 503.0106, L506.1001 #### [facility] [address] [place], [address] Oncology Visit Reporton 12-[address] [facility] [address] [place] [address] OFFICE VISIT Date of Service: 12/22/23 1331 MR#: [id number] Acct: [id number] Name: YEFRI YANEZ Rep #: [id number] : 1965 From: Dangelo Botello MD Age/Sex: 58/M Location: [email or web address] Status: Signed HPI Subjective Date of Service [...] for follow up after CT. Feeling well [facility] Medical History Abnormal chest x-ray Warfarin-induced coagulopathy [...] 12.5 mg (more content not included)... Normal [facility] Basophil percentageOrdered B y: Jose Ramon Turner on 05-27-2023 Bilirubin [Mass/Vol] 0.60 mg/dL 0.20-1.00 [facility] Comment on above: For patients on eltr ombopag therapy, use of Dimension Carman TBIL is not recommended. Chloride [Moles/Vol] 106 mmol/L 98-107 [facility] Glucose [Mass/Vol] 106 mg/dL 74-106 [facility] Comment on above: Fasting Glucose resu lt from 100 to 125 mg/dL suggests IMPAIRED HOMEOSTASIS per A.D.A. criteria. Potassium [Moles/Vol] 3.8 mmol/L 3.5-5.1 [facility] Comment on above: Slight Hemolysis, Re sult may be falsely increased. Protein [Mass/Vol] 6.7 g/dL 6.4-8.2 [facility] Sodium [Moles/Vol] 138 mmol/L 136-145 [facility] Testosterone [Mass/Vol] 173.63 ng/dL [facility] Comment on above: CENTRAL 90% REFERENC E RANGES MALE AGE <50 197.44 - 669.58 ng/dL MALE AGE > or = 50 187.72 - 684.19 ng/dL FEMALE AGE <50 8.38 - 35.01 ng/dL FEMALE AGE > or = 50 <7.00 - 35.92 ng/dL Effective as of 10/01/20 Iron measurement (mass/mass) Ordered By: Jose Ramon Turner on 05-27-2023 Iron (Unsp spec) [Mass/Mass] 115 ug/dL 65-175 [facility] Comment on above: Slight Hemolysis, Re sult may be falsely increased. Laboratory - Chemistry and C hemistry - challengeOrdered By: Jose Ramon Turner on 05-27-2023 Albumin/Globulin [Mass ratio] 0.9 {ratio} 0.9-2.4 [facility] ALP [Catalytic activity/Vol] 73 U/L 45-117 [facility] ALT [Catalytic activity/Vol] 54 U/L 16-61 [facility] CO2 [Moles/Vol] 24.0 mmol/L 21.0-32.0 [facility] Cobalamin (Vitamin B12) [Mass/Vol] 241 pg/mL 211-911 [facility] Ferritin [Mass/Vol] 515 ng/mL 26-388 [facility] Globulin (S) [Mass/Vol] 3.6 g/dL 2.2-4.2 [facility] Urea nitrogen/Creatinine [Mass ratio] 10.7 mg/mg 10-20 [facility] No Panel InformationOrdered By: Jose Ramon Turner on 05-27-2023 Estimated GFR (MDRD) Amer 54 mL/min >60 [facility] Comment on above: GFR Calc Estimated GFR (MDRD) Non-Af Amer 44 mL/min >60 [facility] Comment on above: Non- GFR Calc Serum or plasma calcium cory urement (mass/volume)Ordered By: Jose Ramon Turner on 05-27-2023 Calcium [Mass/Vol] 8.8 mg/dL 8.5-10.1 [facility] Serum or plasma creatinine m easurement (mass/volume)Ordered By: Jose Ramon Turner on 05-27-2023 Creatinine [Mass/Vol] 1.69 mg/dL 0.70-1.30 [facility] Comment on above: The validity of the calculated GFR & GFRAA in patients over 70 years has not been determined. Clinical correlation is essential. Serum or plasma thyroid stim ulating hormone (TSH) measurement (units/volume)Ordered By: Jose Ramon Turner on 05-27-2023 TSH Qn 3.25 uIU/mL 0.358-3.74 [facility] Serum or plasma urea nitroge n measurement (mass/volume)Ordered By: Jose Ramon Turner on 05-27-2023 Urea nitrogen [Mass/Vol] 18 mg/dL 7-18 [facility] Thin prep Papanicolaou smear with manual screeningOrdered By: Jose Ramon Turner on 05-27-2023 Thin prep Papanicolaou smear with manual screening 3.1 g/dL 3.2-5.0 [facility] Thin prep Papanicolaou smear with manual screening 40 U/L 15 [facility] Comment on above: Slight Hemolysis, Re sult may be falsely increased. Thin prep Papanicolaou smear with manual screening 8 07-20 [facility] Clostridioides difficile nuc leic acid assay by PCROrdered By: Jose Ramon Turner on 05-21-2023 C. difficile DNA SANDOVAL+probe Ql (Unsp spec) [facility] Lower GI hemoglobin IA Ql (S tl)Ordered By: Jose Ramon Turner on 05-21-2023 Stool Occult Blood (STEVENSON) Positive [facility] Ova and parasitesOrdered By: Jose Ramon Turner on 05-21-2023 Ova and parasites identified LM Nom (Unsp spec) [facility] Stool enteric pathogen panel by probe and target amplification methodOrdered By: Jose Ramon Turner on 05-21-2023 Gastrointestinal pathogens panel SANDOVAL+probe (Stl) [facility] Stool pancreatic elastase me asurement (mass/mass)Ordered By: Jose Ramon Turner on 05-21-2023 Elastase.pancreatic (Stl) [Mass/Mass] See comment [facility] Comment on above: TEST RESULTS LIMITSP ancreatic Elastase, Fecal 218 ug Elast./g >200 Severe Pancreatic Insufficiency: <100 Moderate Pancreatic Insufficiency: 100 - 200 Normal: >200 TESTING PERFORMED AT [facility]. ORIGINAL REPORT ON FILE IN LAB CONTAINS ADDITIONAL TEST SITE INFORMATION. Basophil percentageOrdered B y: Jose Ramon Turner on 05-20-2023 Basophil percentage 2.0 mg/dL 2.5-4.9 [facility] Chloride [Moles/Vol] 104 mmol/L 98-107 [facility] Glucose [Mass/Vol] 113 mg/dL 74-106 [facility] Comment on above: Fasting Glucose resu lt from 100 to 125 mg/dL suggests IMPAIRED HOMEOSTASIS per A.D.A. criteria. Potassium [Moles/Vol] 3.8 mmol/L 3.5-5.1 [facility] Sodium [Moles/Vol] 137 mmol/L 136-145 [facility] Laboratory - Chemistry and C hemistry - challengeOrdered By: Jose Ramon Turner on 05-20-2023 CO2 [Moles/Vol] 24.0 mmol/L 21.0-32.0 [facility] Urea nitrogen/Creatinine [Mass ratio] 11.1 mg/mg 10-20 [facility] No Panel InformationOrdered By: Jose Ramon Turner on 05-20-2023 Estimated GFR (MDRD) Amer 47 mL/min >60 [facility] Comment on above: GFR Calc Estimated GFR (MDRD) Non-Af Amer 39 mL/min >60 [facility] Comment on above: Non- GFR Calc Serum or plasma calcium cory urement (mass/volume)Ordered By: Jose Ramon Turner on 05-20-2023 Calcium [Mass/Vol] 8.6 mg/dL 8.5-10.1 [facility] Serum or plasma creatinine m easurement (mass/volume)Ordered By: Jose Ramon Turner on 05-20-2023 Creatinine [Mass/Vol] 1.89 mg/dL 0.70-1.30 [facility] Comment on above: The validity of the calculated GFR & GFRAA in patients over 70 years has not been determined. Clinical correlation is essential. Serum or plasma urea nitroge n measurement (mass/volume)Ordered By: Jose Ramon Turner on 05-20-2023 Urea nitrogen [Mass/Vol] 21 mg/dL 7-18 [facility] Thin prep Papanicolaou smear with manual screeningOrdered By: Jose Ramon Turner on 05-20-2023 Thin prep Papanicolaou smear with manual screening 3.2 g/dL 3.2-5.0 [facility] Absolute lymphocyte countOrd ered By: Dangelo Ayan on 04-12-2023 Lymphocytes Auto (Unsp spec) [#/Vol] 1.08 10*3/uL 0.83-4.51 [facility] Automated lymphocyte count a s percentage of total leukocytesOrdered By: Dangelo Botello on 04-12-2023 Lymphocytes/100 WBC Auto (Unsp spec) 18.6 % 19-41 [facility] Basophil percentageOrdered B y: Dangelo Botlelo on 04-12-2023 Basophils/100 WBC (Bld) 0.3 % 0-1 [facility] Bilirubin [Mass/Vol] 0.50 mg/dL 0.20-1.00 [facility] Comment on above: For patients on eltr ombopag therapy, use of Dimension Carman TBIL is not recommended. Chloride [Moles/Vol] 106 mmol/L 98-107 [facility] Eosinophils/100 WBC (Bld) 0.5 % 0-5 [facility] Glucose [Mass/Vol] 121 mg/dL 74-106 [facility] Comment on above: Fasting Glucose resu lt from 100 to 125 mg/dL suggests IMPAIRED HOMEOSTASIS per A.D.A. criteria. Hemoglobin (Bld) [Mass/Vol] 13.9 g/dL 13.0-16.5 [facility] LDH [Catalytic activity/Vol] 391 U/L 87-241 [facility] Comment on above: Slight Hemolysis, Re sult may be falsely increased. Monocytes/100 WBC (Bld) 6.4 % 0-10 [facility] Neutrophils (Bld) [#/Vol] 4.3 10*3/uL 2.0-7.7 [facility] Neutrophils/100 WBC (Bld) 74.0 % 47-70 [facility] Potassium [Moles/Vol] 3.6 mmol/L 3.5-5.1 [facility] Comment on above: Slight Hemolysis, Re sult may be falsely increased. Protein [Mass/Vol] 7.2 g/dL 6.4-8.2 [facility] Sodium [Moles/Vol] 141 mmol/L 136-145 [facility] WBC (Bld) [#/Vol] 5.8 10*3/uL 4.4-11.0 [facility] Blood manual differential co mment interpretation (narrative result)Ordered By: Dangelo Botello on 04-12-2023 Manual differential comment Piyush (Bld) [Interp] SCANNED [facility] Comment on above: 1+ ANISOCYTOSIS Determination of erythrocyte mean corpuscular volume (MCV)Ordered By: Dangelo Botello on 04-12-2023 MCV (RBC) [Entitic vol] 100.7 fL 80-94 [facility] Erythrocyte distribution wid th ratioOrdered By: Dangelo Botello on 04-12-2023 Erythrocyte distribution width (RBC) [Ratio] 17.9 % 11.6-14.6 [facility] Erythrocyte distribution wid th standard deviationOrdered By: Dangelo Botello on 04-12-2023 Erythrocyte distribution width (RBC) [Entitic vol] 66.3 fL 35.1-43.9 [facility] Hematocrit Auto (Bld) [Volum e fraction]Ordered By: Dangelo Botello on 04-12-2023 Hematocrit (Bld) [Volume fraction] 41.9 % 40-54 [facility] Immature granulocytes/100 WB C Auto (Bld)Ordered By: Dangelo Botello on 04-12-2023 Immature granulocytes/100 WBC (Bld) 0.200 % 0.0-0.9 [facility] Comment on above: IG% - Immature Granu locytes (promyelocytes, myelocytes and metamyelocytes) > 1% indicates that a LEFT SHIFT is Present. Laboratory - Chemistry and C hemistry - challengeOrdered By: Dangelo Botello on 04-12-2023 Albumin/Globulin [Mass ratio] 0.8 {ratio} 0.9-2.4 [facility] ALP [Catalytic activity/Vol] 61 U/L 45-117 [facility] ALT [Catalytic activity/Vol] 47 U/L 16-61 [facility] CO2 [Moles/Vol] 28.0 mmol/L 21.0-32.0 [facility] Globulin (S) [Mass/Vol] 3.9 g/dL 2.2-4.2 [facility] [facility] Urea nitrogen/Creatinine [Mass ratio] 10.8 mg/mg 10-20 [facility] Laboratory - Hematology and Cell countsOrdered By: Dangelo Botello on 04-12-2023 MCH (RBC) [Entitic mass] 33.4 pg 27.0-32.0 [facility] MCHC (RBC) [Mass/Vol] 33.2 g/dL 32-36 [facility] Nucleated RBC/100 WBC (Bld) [Ratio] 0.3 % 0-5 [facility] Platelets (Bld) [#/Vol] 275 10*3/uL 150-450 [facility] No Panel InformationOrdered By: Dangelo Botello on 04-12-2023 Estimated Creatinine Clearance Calc 57.07 ml/min [facility] Estimated GFR (MDRD) Amer 48 mL/min >60 [facility] Comment on above: GFR Calc Estimated GFR (MDRD) Non-Af Amer 40 mL/min >60 [facility] Comment on above: Non- GFR Calc Platelet mean volume Kevin-Ec ker (Bld) [Entitic vol]Ordered By: Dangelo Botello on 04-12-2023 Platelet mean volume (Bld) [Entitic vol] 10.4 fL 6.2-12.0 [facility] RBC Auto (Bld) [#/Vol]Ordere d By: Dangelo Botello on 04-12-2023 RBC (Bld) [#/Vol] 4.16 10*6/uL 4.6-6.2 [facility] Serum or plasma calcium cory urement (mass/volume)Ordered By: Dangelo Botello on 04-12-2023 Calcium [Mass/Vol] 8.8 mg/dL 8.5-10.1 [facility] Serum or plasma creatinine m easurement (mass/volume)Ordered By: Dangelo Botello on 04-12-2023 Creatinine [Mass/Vol] 1.86 mg/dL 0.70-1.30 [facility] Comment on above: The validity of the calculated GFR & GFRAA in patients over 70 years has not been determined. Clinical correlation is essential. Serum or plasma urea nitroge n measurement (mass/volume)Ordered By: Dangelo Botello on 04-12-2023 Urea nitrogen [Mass/Vol] 20 mg/dL 7-18 [facility] Thin prep Papanicolaou smear with manual screeningOrdered By: Dangelo Botello on 04-12-2023 Thin prep Papanicolaou smear with manual screening 3.3 g/dL 3.2-5.0 [facility] Thin prep Papanicolaou smear with manual screening 34 U/L 15-37 [facility] Comment on above: Slight Hemolysis, Re sult may be falsely increased. Thin prep Papanicolaou smear with manual screening 7 5-15 [facility] Basophil percentageOrdered B y: Isidra Chiu on 02-12-2023 Basophil percentage 0-5 SEEN /hpf 0-5 [facility] Bilirubin Test strip Ql (U)O rdered By: Isidra Chiu on 02-12-2023 Bilirubin Ql (U) Negative Negative [facility] Ketones Test strip Ql (U)Ord ered By: Isidra Chiu on 02-12-2023 Ketones Ql (U) Negative Negative [facility] Mucus LM Ql (Urine sed)Order ed By: Isidra Chiu on 02-12-2023 Mucus Ql (Urine sed) 0 SEEN /hpf [facility] Nitrite Test strip Ql (U)Ord ered By: Isidra Chiu on 02-12-2023 Nitrite Ql (U) Negative Negative [facility] Protein Test strip Ql (U)Ord ered By: Isidra Chiu on 02-12-2023 Protein Ql (U) 15 mg/dl Negative [facility] Squamous epithelial cells de tection in urine sediment by light microscopyOrdered By: Isidra Chiu on 02-12-2023 Epithelial cells.squamous LM Ql (Urine sed) 0 SEEN /hpf 0-5 [facility] Urine blood detectionOrdered By: Isidra Chiu on 02-12-2023 RBC Ql (U) Negative Negative [facility] RBC Ql (U) 0 SEEN /hpf 0-5 [facility] Urine clarityOrdered By: Bruce Chiu on 02-12-2023 Clarity (U) Clear Clear [facility] Urine color determinationOrd ered By: Isidra Chiu on 02-12-2023 Color (U) Yellow Yellow [facility] Urine creatinine measurement (mass/volume)Ordered By: Isidra Chiu on 02-12-2023 Creatinine (U) [Mass/Vol] 194.00 mg/dL NO RANGE EST. [facility] Urine glucose detectionOrder ed By: Isidra Chiu on 02-12-2023 Glucose Ql (U) Normal mg/dl Normal [facility] Urine leukocyte esterase det ection by dipstickOrdered By: Isidra Chiu on 02-12-2023 Leukocyte esterase Test strip Ql (U) 25 /ul Negative [facility] Urine pHOrdered By: Lynette Chiu on 02-12-2023 pH (U) 5.0 [pH] 5.0 - 8.0 [facility] Urine protein measurement (m ass/volume)Ordered By: Isidra Chiu on 02-12-2023 Protein (U) [Mass/Vol] 20.7 mg/dL 0.0-11.8 [facility] Urine protein/creatinine mas s ratioOrdered By: Isidra Chiu on 02-12-2023 Protein/Creatinine (U) [Mass ratio] 107 mg/g CRE 0-200 [facility] Urine sediment bacteria coun t by microscopy (number/high power field)Ordered By: Isidra Chiu on 02-12-2023 Bacteria LM.HPF (Urine sed) [#/Area] 0 /[HPF] None Seen [facility] Urine specific gravity measu rementOrdered By: Isidra Chiu on 02-12-2023 Specific gravity (U) [Rel density] 1.020 1.002-1.03 0 [facility] Urobilinogen Auto test strip Ql (U)Ordered By: Isidra Chiu on 02-12-2023 Urobilinogen Ql (U) Normal mg/dl Normal [facility] Absolute lymphocyte countOrd ered By: Carlo Chiu on 12-17-2022 Lymphocytes Auto (Unsp spec) [#/Vol] 0.88 10*3/uL 0.83-4.51 [facility] Basophil percentageOrdered B y: Carol Chiu on 12-17-2022 Basophils/100 WBC (Bld) 0.4 % 0-1 [facility] Chloride [Moles/Vol] 107 mmol/L 98-107 [facility] Eosinophils/100 WBC (Bld) 1.0 % 0-5 [facility] Glucose [Mass/Vol] 110 mg/dL 74-106 [facility] Comment on above: Fasting Glucose resu lt from 100 to 125 mg/dL suggests IMPAIRED HOMEOSTASIS per A.D.A. criteria. Neutrophils (Bld) [#/Vol] 3.7 10*3/uL 2.0-7.7 [facility] Neutrophils/100 WBC (Bld) 71.5 % 47-70 [facility] Potassium [Moles/Vol] 3.5 mmol/L 3.5-5.1 [facility] Sodium [Moles/Vol] 138 mmol/L 136-145 [facility] WBC (Bld) [#/Vol] 5.2 10*3/uL 4.4-11.0 [facility] Blood erythrocytes count (nu mber/volume)Ordered By: Carol Chiu on 12-17-2022 RBC (Bld) [#/Vol] 4.04 10*6/uL 4.6-6.2 [facility] Blood hemoglobin measurement (mass/volume)Ordered By: Carol Chiu on 12-17-2022 Hemoglobin (Bld) [Mass/Vol] 13.9 g/dL 13.0-16.5 [facility] Blood lymphocytes/100 leukoc ytesOrdered By: Carol Chiu on 12-17-2022 Lymphocytes/100 WBC (Bld) 16.9 % 19-41 [facility] Blood monocytes/100 leukocyt esOrdered By: Carol Chiu on 12-17-2022 Monocytes/100 WBC (Bld) 9.8 % 0-10 [facility] Blood platelet mean volumeOr dered By: Carol Chiu on 12-17-2022 Platelet mean volume (Bld) [Entitic vol] 11.2 fL 6.2-12.0 [facility] Determination of erythrocyte mean corpuscular volume (MCV)Ordered By: Carol Chiu on 12-17-2022 MCV (RBC) [Entitic vol] 102.0 fL 80-94 [facility] Hematocrit Auto (Bld) [Volum e fraction]Ordered By: Carol Chiu on 12-17-2022 Hematocrit (Bld) [Volume fraction] 41.2 % 40-54 [facility] INR in Blood by Coagulation assayOrdered By: Marquise Padilla on 12-17-2022 INR Coag (Bld) [Relative time] 2.2 {INR} [facility] Laboratory - Chemistry and C hemistry - challengeOrdered By: Carol Chiu on 12-17-2022 CO2 [Moles/Vol] 26.0 mmol/L 21.0-32.0 [facility] Urea nitrogen/Creatinine [Mass ratio] 11.5 mg/mg 10-20 [facility] Laboratory - CoagulationOrde red By: Marquise Padilla on 12-17-2022 PT Coag (PPP) [Time] 24.6 s 11.7-14.9 [facility] Laboratory - Hematology and Cell countsOrdered By: Carol Chiu on 12-17-2022 Erythrocyte distribution width (RBC) [Entitic vol] 63.6 fL 35.1-43.9 [facility] Erythrocyte distribution width (RBC) [Ratio] 16.9 % 11.6-14.6 [facility] Immature granulocytes/100 WBC (Bld) 0.400 % 0.0-0.9 [facility] Comment on above: IG% - Immature Granu locytes (promyelocytes, myelocytes and metamyelocytes) > 1% indicates that a LEFT SHIFT is Present. MCH (RBC) [Entitic mass] 34.4 pg 27.0-32.0 [facility] Nucleated RBC/100 WBC (Bld) [Ratio] 0.8 % 0-5 [facility] MCHC Auto (RBC) [Mass/Vol]Or dered By: Carol Chiu on 12-17-2022 MCHC (RBC) [Mass/Vol] 33.7 g/dL 32-36 [facility] No Panel InformationOrdered By: Carol Chiu on 12-17-2022 Estimated Creatinine Clearance Calc 51.97 ml/min [facility] Estimated GFR (MDRD) Amer 55 mL/min >60 [facility] Comment on above: GFR Calc Estimated GFR (MDRD) Non-Af Amer 46 mL/min >60 [facility] Comment on above: Non- GFR Calc Platelets bldOrdered By: Lina Chiu on 12-17-2022 Platelets (Bld) [#/Vol] 193 10*3/uL 150-450 [facility] Serum or plasma calcium cory urement (mass/volume)Ordered By: Carol Chiu on 12-17-2022 Calcium [Mass/Vol] 9.3 mg/dL 8.5-10.1 [facility] Serum or plasma creatinine m easurement (mass/volume)Ordered By: Carol Chiu on 12-17-2022 Creatinine [Mass/Vol] 1.65 mg/dL 0.70-1.30 [facility] Comment on above: The validity of the calculated GFR & GFRAA in patients over 70 years has not been determined. Clinical correlation is essential. Serum or plasma urea nitroge n measurement (mass/volume)Ordered By: Carol Chiu on 12-17-2022 Urea nitrogen [Mass/Vol] 19 mg/dL 7-18 [facility] Thin prep Papanicolaou smear with manual screeningOrdered By: Carol Chiu on 12-17-2022 Thin prep Papanicolaou smear with manual screening 5 5-15 [facility] Blood manual differential co mment interpretation (narrative result)Ordered By: Marquise Padilla on 12-16-2022 Manual differential comment Piyush (Bld) [Interp] SCANNED [facility] Laboratory - Hematology and Cell countsOrdered By: Marquise Padilla on 12-16-2022 Anisocytosis Ql (Bld) 2+ [facility] Macrocytes detectionOrdered By: Marquise Padilla on 12-16-2022 Macrocytes Ql (Bld) 2+ [facility] Laboratory - Chemistry and C hemistry - challengeOrdered By: Speedy Bass on 12-15-2022 Natriuretic peptide B (Bld) [Mass/Vol] 574.1 pg/mL 0-100 [facility] No Panel InformationOrdered By: Marquise Padilla on 12-15-2022 Streptococcus pneumoniae Antigen (M [facility] Streptococcus pneumoniae Antigen (M [facility] No Panel InformationOrdered By: Speedy Bass on 12-15-2022 Troponin I High Sensitivity 40 pg/mL 3.0-78.0 [facility] Comment on above: Please Note: New [place] t Units and Gender Specific Reference Ranges. For more information see Policy Stat Procedure [facility] High Sensitivity Troponin (TNIH) and attachments. Urine Legionella pneumophila antigen detectionOrdered By: Marquise Padilla on 12-15-2022 L. pneumophila Ag Ql (U) [facility] L. pneumophila Ag Ql (U) [facility] Basophil percentageOrdered B y: Jose Ramon Turner on 11-12-2022 Chloride [Moles/Vol] 106 mmol/L 98-107 [facility] Glucose [Mass/Vol] 89 mg/dL 74-106 [facility] Potassium [Moles/Vol] 3.9 mmol/L 3.5-5.1 [facility] Comment on above: Slight Hemolysis, Re sult may be falsely increased. Sodium [Moles/Vol] 138 mmol/L 136-145 [facility] WBC (Bld) [#/Vol] 5.4 10*3/uL 4.4-11.0 [facility] Blood erythrocytes count (nu mber/volume)Ordered By: Jose Ramon Turner on 11-12-2022 RBC (Bld) [#/Vol] 4.08 10*6/uL 4.6-6.2 [facility] Blood hemoglobin measurement (mass/volume)Ordered By: Jose Ramon Turner on 11-12-2022 Hemoglobin (Bld) [Mass/Vol] 14.2 g/dL 13.0-16.5 [facility] Blood manual differential co mment interpretation (narrative result)Ordered By: Jose Ramon Turner on 11-12-2022 Manual differential comment Piyush (Bld) [Interp] SCANNED [facility] Comment on above: 2+ ANISOCYTOSIS2+ MA CROCYTOSIS Blood platelet mean volumeOr dered By: Jose Ramon Turner on 11-12-2022 Platelet mean volume (Bld) [Entitic vol] 10.9 fL 6.2-12.0 [facility] Determination of erythrocyte mean corpuscular volume (MCV)Ordered By: Jose Ramon Turner on 11-12-2022 MCV (RBC) [Entitic vol] 105.1 fL 80-94 [facility] Hematocrit Auto (Bld) [Volum e fraction]Ordered By: Jose Ramon Turner on 11-12-2022 Hematocrit (Bld) [Volume fraction] 42.9 % 40-54 [facility] Laboratory - Chemistry and C hemistry - challengeOrdered By: Jose Ramon Turner on 11-12-2022 Natriuretic peptide B (Bld) [Mass/Vol] 255.5 pg/mL 0-100 [facility] CO2 [Moles/Vol] 27.0 mmol/L 21.0-32.0 [facility] Urea nitrogen/Creatinine [Mass ratio] 9.8 mg/mg 10-20 [facility] Laboratory - Hematology and Cell countsOrdered By: Jose Ramon Turner on 11-12-2022 Erythrocyte distribution width (RBC) [Entitic vol] 69.2 fL 35.1-43.9 [facility] Erythrocyte distribution width (RBC) [Ratio] 17.9 % 11.6-14.6 [facility] MCH (RBC) [Entitic mass] 34.8 pg 27.0-32.0 [facility] MCHC Auto (RBC) [Mass/Vol]Or dered By: Jose Ramon Turner on 11-12-2022 MCHC (RBC) [Mass/Vol] 33.1 g/dL 32-36 [facility] No Panel InformationOrdered By: Jose Ramon Turner on 11-12-2022 Estimated GFR (MDRD) Amer 52 mL/min >60 [facility] Comment on above: GFR Calc Estimated GFR (MDRD) Non-Af Amer 43 mL/min >60 [facility] Comment on above: Non- GFR Calc Platelets bldOrdered By: Bruce Turner on 11-12-2022 Platelets (Bld) [#/Vol] 242 10*3/uL 150-450 [facility] Serum or plasma calcium cory urement (mass/volume)Ordered By: Jose Ramon Turner on 11-12-2022 Calcium [Mass/Vol] 9.0 mg/dL 8.5-10.1 [facility] Serum or plasma creatinine m easurement (mass/volume)Ordered By: Jose Ramon Turner on 11-12-2022 Creatinine [Mass/Vol] 1.73 mg/dL 0.70-1.30 [facility] Comment on above: The validity of the calculated GFR & GFRAA in patients over 70 years has not been determined. Clinical correlation is essential. Serum or plasma urea nitroge n measurement (mass/volume)Ordered By: Jose Ramon Turner on 11-12-2022 Urea nitrogen [Mass/Vol] 17 mg/dL 7-18 [facility] Thin prep Papanicolaou smear with manual screeningOrdered By: Jose Ramon Turner on 11-12-2022 Thin prep Papanicolaou smear with manual screening 5 5-15 [facility] Absolute lymphocyte countOrd ered By: Dangelo Botello on 09-03-2022 Lymphocytes Auto (Unsp spec) [#/Vol] 0.99 10*3/uL 0.83-4.51 [facility] Basophil percentageOrdered B y: Dangelo Botello on 09-03-2022 Basophils/100 WBC (Bld) 0.3 % 0-1 [facility] Bilirubin [Mass/Vol] 0.60 mg/dL 0.20-1.00 [facility] Comment on above: For patients on eltr ombopag therapy, use of Dimension Carman TBIL is not recommended. Chloride [Moles/Vol] 102 mmol/L 98-107 [facility] Eosinophils/100 WBC (Bld) 0.2 % 0-5 [facility] Glucose [Mass/Vol] 110 mg/dL 74-106 [facility] Comment on above: Fasting Glucose resu lt from 100 to 125 mg/dL suggests IMPAIRED HOMEOSTASIS per A.D.A. criteria. LDH [Catalytic activity/Vol] 288 U/L 87-241 [facility] Neutrophils (Bld) [#/Vol] 5.0 10*3/uL 2.0-7.7 [facility] Neutrophils/100 WBC (Bld) 77.5 % 47-70 [facility] Potassium [Moles/Vol] 3.6 mmol/L 3.5-5.1 [facility] Protein [Mass/Vol] 7.2 g/dL 6.4-8.2 [facility] Sodium [Moles/Vol] 136 mmol/L 136-145 [facility] WBC (Bld) [#/Vol] 6.4 10*3/uL 4.4-11.0 [facility] Blood erythrocytes count (nu mber/volume)Ordered By: Dangelo Botello on 09-03-2022 RBC (Bld) [#/Vol] 4.37 10*6/uL 4.6-6.2 [facility] Blood hemoglobin measurement (mass/volume)Ordered By: Dangelo Botello on 09-03-2022 Hemoglobin (Bld) [Mass/Vol] 15.2 g/dL 13.0-16.5 [facility] Blood lymphocytes/100 leukoc ytesOrdered By: Dangelo Botello on 09-03-2022 Lymphocytes/100 WBC (Bld) 15.4 % 19-41 [facility] Blood monocytes/100 leukocyt esOrdered By: Dangelo Botello on 09-03-2022 Monocytes/100 WBC (Bld) 6.1 % 0-10 [facility] Blood platelet mean volumeOr dered By: Dangelo Botello on 09-03-2022 Platelet mean volume (Bld) [Entitic vol] 10.0 fL 6.2-12.0 [facility] Determination of erythrocyte mean corpuscular volume (MCV)Ordered By: Dangelo Botello on 09-03-2022 MCV (RBC) [Entitic vol] 100.7 fL 80-94 [facility] Hematocrit Auto (Bld) [Volum e fraction]Ordered By: Dangelo Botello on 09-03-2022 Hematocrit (Bld) [Volume fraction] 44.0 % 40-54 [facility] Laboratory - Chemistry and C hemistry - challengeOrdered By: Dangelo Ayan on 09-03-2022 ALP [Catalytic activity/Vol] 76 U/L 45-117 [facility] ALT [Catalytic activity/Vol] 52 U/L 16-61 [facility] CO2 [Moles/Vol] 28.0 mmol/L 21.0-32.0 [facility] Globulin (S) [Mass/Vol] 4.1 g/dL 2.2-4.2 [facility] Urea nitrogen/Creatinine [Mass ratio] 9.5 mg/mg 10-20 [facility] Laboratory - Hematology and Cell countsOrdered By: Dagnelo Botello on 09-03-2022 [facility]is[facility]Bld) [facility] Erythrocyte distribution width (RBC) [Entitic vol] 68.4 fL 35.1-43.9 [facility] Erythrocyte distribution width (RBC) [Ratio] 18.4 % 11.6-14.6 [facility] Immature granulocytes/100 WBC (Bld) 0.500 % 0.0-0.9 [facility] Comment on above: IG% - Immature Granu locytes (promyelocytes, myelocytes and metamyelocytes) > 1% indicates that a LEFT SHIFT is Present. MCH (RBC) [Entitic mass] 34.8 pg 27.0-32.0 [facility] Nucleated RBC/100 WBC (Bld) [Ratio] 0.5 % 0-5 [facility] MCHC Auto (RBC) [Mass/Vol]Or dered By: Dangelo Botello on 09-03-2022 MCHC (RBC) [Mass/Vol] 34.5 g/dL 32-36 [facility] No Panel InformationOrdered By: Dangelo Botello on 09-03-2022 Estimated Creatinine Clearance Calc 47.91 ml/min [facility] Estimated GFR (MDRD) Amer 50 mL/min >60 [facility] Comment on above: GFR Calc Estimated GFR (MDRD) Non-Af Amer 42 mL/min >60 [facility] Comment on above: Non- GFR Calc Platelets bldOrdered By: Jose Botello on 09-03-2022 Platelets (Bld) [#/Vol] 241 10*3/uL 150-450 [facility] Serum or plasma albumin cory urement (mass/volume)Ordered By: Dangelo Botello on 09-03-2022 Albumin [Mass/Vol] 3.1 g/dL 3.2-5.0 [facility] Serum or plasma albumin/glob ulin mass ratioOrdered By: Dangelo Botello on 09-03-2022 Albumin/Globulin [Mass ratio] 0.8 {ratio} 0.9-2.4 [facility] Serum or plasma calcium cory urement (mass/volume)Ordered By: Dangelo Botello on 09-03-2022 Calcium [Mass/Vol] 9.2 mg/dL 8.5-10.1 [facility] Serum or plasma creatinine m easurement (mass/volume)Ordered By: Dangelo Botello on 09-03-2022 Creatinine [Mass/Vol] 1.79 mg/dL 0.70-1.30 [facility] Comment on above: The validity of the calculated GFR & GFRAA in patients over 70 years has not been determined. Clinical correlation is essential. Serum or plasma urea nitroge n measurement (mass/volume)Ordered By: Dangelo Botello on 09-03-2022 Urea nitrogen [Mass/Vol] 17 mg/dL 7-18 [facility] Thin prep Papanicolaou smear with manual screeningOrdered By: Dangelo Botello on 09-03-2022 Thin prep Papanicolaou smear with manual screening 36 U/L 15-37 [facility] Thin prep Papanicolaou smear with manual screening 6 5-15 [facility] Absolute lymphocyte countOrd ered By: Dr. Wei on 06-29-2022 Lymphocytes Auto (Unsp spec) [#/Vol] 0.27 10*3/uL 0.83-4.51 [facility] Basophil percentageOrdered B y: Dr. Wei on 06-29-2022 Basophils/100 WBC (Bld) 0.1 % 0-1 [facility] Chloride [Moles/Vol] 107 mmol/L 98-107 [facility] Eosinophils/100 WBC (Bld) 0.0 % 0-5 [facility] Glucose [Mass/Vol] 210 mg/dL 74-106 [facility] Comment on above: Glucose result great er than or equal to 200 mg/dLsuggests DIABETES MELLITUS per A.D.A. criteria. Neutrophils (Bld) [#/Vol] 8.6 10*3/uL 2.0-7.7 [facility] Neutrophils/100 WBC (Bld) 91.8 % 47-70 [facility] Potassium [Moles/Vol] 3.9 mmol/L 3.5-5.1 [facility] Sodium [Moles/Vol] 137 mmol/L 136-145 [facility] WBC (Bld) [#/Vol] 9.3 10*3/uL 4.4-11.0 [facility] Basophil percentageOrdered B y: Dr. Lu on 06-29-2022 Cholesterol [Mass/Vol] 126 mg/dL <200 [facility] Comment on above: <200 mg/dL Desirable 200-240 mg/dL Borderline >240 mg/dL High Risk Triglyceride [Mass/Vol] 60 mg/dL <199 [facility] Comment on above: The drugs N-Acetylcy steine and Metamizole may falsely depress this assay.Serum Triglycerides Reference Interval Normal <150 mg/dL Borderline high 150 - 199 mg/dL High 200 - 499 mg/dL Very High > or = 500 mg/dL Blood erythrocytes count (nu mber/volume)Ordered By: Dr. Wei on 06-29-2022 RBC (Bld) [#/Vol] 4.28 10*6/uL 4.6-6.2 [facility] Blood hemoglobin measurement (mass/volume)Ordered By: Dr. Wei on 06-29-2022 Hemoglobin (Bld) [Mass/Vol] 14.4 g/dL 13.0-16.5 [facility] Blood lymphocytes/100 leukoc ytesOrdered By: Dr. Wei on 06-29-2022 Lymphocytes/100 WBC (Bld) 2.9 % 19-41 [facility] Blood manual differential co mment interpretation (narrative result)Ordered By: Dr. Wei on 06-29-2022 Manual differential comment Piyush (Bld) [Interp] SCANNED [facility] Comment on above: LYMPHOPENIA Blood monocytes/100 leukocyt esOrdered By: Dr. Wei on 06-29-2022 Monocytes/100 WBC (Bld) 4.4 % 0-10 [facility] Blood platelet mean volumeOr dered By: Dr. Wei on 06-29-2022 Platelet mean volume (Bld) [Entitic vol] 11.4 fL 6.2-12.0 [facility] Determination of erythrocyte mean corpuscular volume (MCV)Ordered By: Dr. Wei on 06-29-2022 MCV (RBC) [Entitic vol] 101.9 fL 80-94 [facility] Hematocrit Auto (Bld) [Volum e fraction]Ordered By: Dr. Wei on 06-29-2022 Hematocrit (Bld) [Volume fraction] 43.6 % 40-54 [facility] Laboratory - Chemistry and C hemistry - challengeOrdered By: Dr. Wei on 06-29-2022 CO2 [Moles/Vol] 27.0 mmol/L 21.0-32.0 [facility] Urea nitrogen/Creatinine [Mass ratio] 16.2 mg/mg 10-20 [facility] - Hematology and Cell countsOrdered By: Dr. Wei on 06-29-2022 Anisocytosis Ql (Bld) 2+ [facility] Erythrocyte distribution width (RBC) [Entitic vol] 66.1 fL 35.1-43.9 [facility] Erythrocyte distribution width (RBC) [Ratio] 18.0 % 11.6-14.6 [facility] Immature granulocytes/100 WBC (Bld) 0.800 % 0.0-0.9 [facility] Comment on above: IG% - Immature Granu locytes (promyelocytes, myelocytes and metamyelocytes) > 1% indicates that a LEFT SHIFT is Present. MCH (RBC) [Entitic mass] 33.6 pg 27.0-32.0 [facility] Nucleated RBC/100 WBC (Bld) [Ratio] 2.7 % 0-5 [facility] MCHC Auto (RBC) [Mass/Vol]Or dered By: Dr. Wei on 06-29-2022 MCHC (RBC) [Mass/Vol] 33.0 g/dL 32-36 [facility] No Panel InformationOrdered By: Dr. Wei on 06-29-2022 Estimated Creatinine Clearance Calc 55.69 ml/min [facility] Estimated GFR (MDRD) Amer 60 mL/min >60 [facility] Comment on above: GFR Calc Estimated GFR (MDRD) Non-Af Amer 50 mL/min >60 [facility] Comment on above: Non- GFR Calc Platelets bldOrdered By: Dr. Wei on 06-29-2022 Platelets (Bld) [#/Vol] 191 10*3/uL 150-450 [facility] Serum or plasma calcium cory urement (mass/volume)Ordered By: Dr. Wei on 06-29-2022 Calcium [Mass/Vol] 9.1 mg/dL 8.5-10.1 [facility] Serum or plasma cholesterol in HDL measurement (mass/volume)Ordered By: Dr. Lu on 06-29-2022 Cholesterol in HDL [Mass/Vol] 54 mg/dL >40 [facility] Comment on above: The drugs N-Acetylcy steine and Metamizole may falsely depress this assay. Reference Range HDL <40 mg/dL Low HDL Cholesterol HDL >or= 60 mg/dL High HDL Cholesterol Serum or plasma cholesterol in VLDL measurement (mass/volume)Ordered By: Dr. Lu on 06-29-2022 Cholesterol in VLDL [Mass/Vol] 12 mg/dL 5-40 [facility] Serum or plasma creatinine m easurement (mass/volume)Ordered By: Dr. Wei on 06-29-2022 Creatinine [Mass/Vol] 1.54 mg/dL 0.70-1.30 [facility] Comment on above: The validity of the calculated GFR & GFRAA in patients over 70 years has not been determined. Clinical correlation is essential. Serum or plasma low density lipoprotein (LDL) cholesterol measurement (mass/volume)Ordered By: Dr. Lu on 06-29-2022 Cholesterol in LDL [Mass/Vol] 60 mg/dL 0-130 [facility] Serum or plasma urea nitroge n measurement (mass/volume)Ordered By: Dr. Wei on 06-29-2022 Urea nitrogen [Mass/Vol] 25 mg/dL 7-18 [facility] Thin prep Papanicolaou smear with manual screeningOrdered By: Dr. Wei on 06-29-2022 Thin prep Papanicolaou smear with manual screening 3 5-15 [facility] Basophil percentageOrdered B y: Dr. Lu on 06-28-2022 Bilirubin [Mass/Vol] 0.80 mg/dL 0.20-1.00 [facility] Comment on above: For patients on eltr ombopag therapy, use of Dimension Carman TBIL is not recommended. Protein [Mass/Vol] 6.7 g/dL 6.4-8.2 [facility] Blood polychromasia detectio n by light microscopyOrdered By: Dr. Lu on 06-28-2022 Polychromasia LM Ql (Bld) RARE [facility] INR in Blood by Coagulation assayOrdered By: Dr. Lu on 06-28-2022 INR Coag (Bld) [Relative time] 2.1 {INR} [facility] Laboratory - Chemistry and C hemistry - challengeOrdered By: Dr. Lu on 06-28-2022 ALP [Catalytic activity/Vol] 111 U/L 45-117 [facility] ALT [Catalytic activity/Vol] 146 U/L 16-61 [facility] Globulin (S) [Mass/Vol] 3.6 g/dL 2.2-4.2 [facility] Magnesium [Mass/Vol] 2.1 mg/dL 1.6-2.6 [facility] Laboratory - CoagulationOrde red By: Dr. Lu on 06-28-2022 PT Coag (PPP) [Time] 22.9 s 11.7-14.9 [facility] Laboratory - Microbiology an d Antimicrobial susceptibilityOrdered By: Estelita Lu on 06-28-2022 Respiratory pathogens DNA and RNA 12b panel SANDOVAL+probe (Unsp spec) [facility] Laboratory - Microbiology an d Antimicrobial susceptibilityOrdered By: Dr. Lu on 06-28-2022 Respiratory pathogens DNA and RNA 12b panel SANDOVAL+probe (Unsp spec) [facility] Macrocytes detectionOrdered By: Dr. Lu on 06-28-2022 Macrocytes Ql (Bld) 1+ [facility] No Panel InformationOrdered By: Dr. Lu on 06-28-2022 Troponin I High Sensitivity 87 pg/mL 3.0-78.0 [facility] Comment on above: Please Note: New [place] t Units and Gender Specific Reference Ranges. For more information see Policy Stat Procedure Carman High Sensitivity Troponin (TNIH) and attachments. Thyroid Stimulating Hormone (TSH) 2.20 uIU/mL 0.358-3.74 [facility] Ovalocyte detectionOrdered B y: Dr. Lu on 06-28-2022 Ovalocytes LM Ql (Bld) RARE [facility] Serum or plasma albumin cory urement (mass/volume)Ordered By: Dr. Lu on 06-28-2022 Albumin [Mass/Vol] 3.1 g/dL 3.2-5.0 [facility] Serum or plasma albumin/glob ulin mass ratioOrdered By: Dr. Lu on 06-28-2022 Albumin/Globulin [Mass ratio] 0.9 {ratio} 0.9-2.4 [facility] Serum procalcitonin measurem entOrdered By: Dr. Lu on 06-28-2022 Procalcitonin [Mass/Vol] 0.09 ng/mL 0.00-0.09 [facility] Comment on above: A procalcitonin (PCT ) [...] smear with manual screening 130 U/L 15-37 [facility] Absolute lymphocyte countOrd ered By: Dr. Hastings on 06-27-2022 Lymphocytes Auto (Unsp spec) [#/Vol] 0.93 10*3/uL 0.83-4.51 [facility] Basophil percentageOrdered B y: Dr. Lu on 06-27-2022 Basophil percentage 2.8 mg/dL 2.5-4.9 [facility] Basophil percentageOrdered B y: Dr. Hastings on 06-27-2022 Basophils/100 WBC (Bld) 0.4 % 0-1 [facility] Chloride [Moles/Vol] 109 mmol/L 98-107 [facility] Eosinophils/100 WBC (Bld) 0.5 % 0-5 [facility] Glucose [Mass/Vol] 127 mg/dL 74-106 [facility] Comment on above: Fasting Glucose resu lt greater than or equal to 126 mg/dL suggests DIABETES MELLITUS per A.D.A. criteria. Neutrophils (Bld) [#/Vol] 4.2 10*3/uL 2.0-7.7 [facility] Neutrophils/100 WBC (Bld) 75.4 % 47-70 [facility] Potassium [Moles/Vol] 3.5 mmol/L 3.5-5.1 [facility] Sodium [Moles/Vol] 140 mmol/L 136-145 [facility] WBC (Bld) [#/Vol] 5.5 10*3/uL 4.4-11.0 [facility] Blood erythrocytes count (nu mber/volume)Ordered By: Dr. Hastings on 06-27-2022 RBC (Bld) [#/Vol] 4.24 10*6/uL 4.6-6.2 [facility] Blood hemoglobin measurement (mass/volume)Ordered By: Dr. Hastings on 06-27-2022 Hemoglobin (Bld) [Mass/Vol] 14.6 g/dL 13.0-16.5 [facility] Blood lymphocytes/100 leukoc ytesOrdered By: Dr. Hastings on 06-27-2022 Lymphocytes/100 WBC (Bld) 16.8 % 19-41 [facility] Blood manual differential co mment interpretation (narrative result)Ordered By: Dr. Hastings on 06-27-2022 Manual differential comment Piyush (Bld) [Interp] SCANNED [facility] Blood monocytes/100 leukocyt esOrdered By: Dr. Hastings on 06-27-2022 Monocytes/100 WBC (Bld) 6.0 % 0-10 [facility] Blood platelet mean volumeOr dered By: Dr. Hastings on 06-27-2022 Platelet mean volume (Bld) [Entitic vol] 11.2 fL 6.2-12.0 [facility] Determination of erythrocyte mean corpuscular volume (MCV)Ordered By: Dr. Hastings on 06-27-2022 MCV (RBC) [Entitic vol] 103.3 fL 80-94 [facility] Hematocrit Auto (Bld) [Volum e fraction]Ordered By: Dr. Hastings on 06-27-2022 Hematocrit (Bld) [Volume fraction] 43.8 % 40-54 [facility] INR in Blood by Coagulation assayOrdered By: Dr. Hastings on 06-27-2022 INR Coag (Bld) [Relative time] 2.0 {INR} [facility] Laboratory - Chemistry and C hemistry - challengeOrdered By: Dr. Hastings on 06-27-2022 CO2 [Moles/Vol] 26.0 mmol/L 21.0-32.0 [facility] Natriuretic peptide B (Bld) [Mass/Vol] 278.3 pg/mL 0-100 [facility] Urea nitrogen/Creatinine [Mass ratio] 14.7 mg/mg 10-20 [facility] Laboratory - CoagulationOrde red By: Dr. Hastings on 06-27-2022 aPTT Coag (Bld) [Time] 46.5 s 24.1-36.2 [facility] PT Coag (PPP) [Time] 22.5 s 11.7-14.9 [facility] Laboratory - Hematology and Cell countsOrdered By: Dr. Hastings on 06-27-2022 Anisocytosis Ql (Bld) 2+ [facility] Erythrocyte distribution width (RBC) [Entitic vol] 67.8 fL 35.1-43.9 [facility] Erythrocyte distribution width (RBC) [Ratio] 17.9 % 11.6-14.6 [facility] Immature granulocytes/100 WBC (Bld) 0.900 % 0.0-0.9 [facility] Comment on above: IG% - Immature Granu locytes (promyelocytes, myelocytes and metamyelocytes) > 1% indicates that a LEFT SHIFT is Present. MCH (RBC) [Entitic mass] 34.4 pg 27.0-32.0 [facility] Nucleated RBC/100 WBC (Bld) [Ratio] 2.9 % 0-5 [facility] MCHC Auto (RBC) [Mass/Vol]Or dered By: Dr. Hastings on 06-27-2022 MCHC (RBC) [Mass/Vol] 33.3 g/dL 32-36 [facility] Macrocytes detectionOrdered By: Dr. Hastings on 06-27-2022 Macrocytes Ql (Bld) 2+ [facility] No Panel InformationOrdered By: Dr. Hastings on 06-27-2022 Estimated Creatinine Clearance Calc 46.61 ml/min [facility] Estimated GFR (MDRD) Amer 49 mL/min >60 [facility] Comment on above: GFR Calc Estimated GFR (MDRD) Non-Af Amer 40 mL/min >60 [facility] Comment on above: Non- GFR Calc Troponin I High Sensitivity 92 pg/mL 3.0-78.0 [facility] Comment on above: Please Note: New [place] t Units and Gender Specific Reference Ranges. For more information see Policy Stat Procedure [facility] High Sensitivity Troponin (TNIH) and attachments. Platelets bldOrdered By: Dr. Hastings on 06-27-2022 Platelets (Bld) [#/Vol] 201 10*3/uL 150-450 [facility] Serum or plasma calcium cory urement (mass/volume)Ordered By: Dr. Hastings on 06-27-2022 Calcium [Mass/Vol] 8.9 mg/dL 8.5-10.1 [facility] Serum or plasma creatinine m easurement (mass/volume)Ordered By: Dr. Hastings on 06-27-2022 Creatinine [Mass/Vol] 1.84 mg/dL 0.70-1.30 [facility] Comment on above: The validity of the calculated GFR & GFRAA in patients over 70 years has not been determined. Clinical correlation is essential. Serum or plasma urea nitroge n measurement (mass/volume)Ordered By: Dr. Hastings on 06-27-2022 Urea nitrogen [Mass/Vol] 27 mg/dL 7-18 [facility] Thin prep Papanicolaou smear with manual screeningOrdered By: Dr. Hastings on 06-27-2022 Thin prep Papanicolaou smear with manual screening 5 5-15 [facility] Basophil percentageOrdered B y: Dr. Che on 05-20-2022 Chloride [Moles/Vol] 103 mmol/L 98-107 [facility] Glucose [Mass/Vol] 170 mg/dL 74-106 [facility] Comment on above: Fasting Glucose resu lt greater than or equal to 126 mg/dL suggests DIABETES MELLITUS per A.D.A. criteria. Potassium [Moles/Vol] 3.3 mmol/L 3.5-5.1 [facility] Sodium [Moles/Vol] 140 mmol/L 136-145 [facility] INR in Blood by Coagulation assayOrdered By: Dr. Dukes on 05-20-2022 INR Coag (Bld) [Relative time] 2.7 {INR} [facility] Laboratory - Chemistry and C hemistry - challengeOrdered By: Dr. Che on 05-20-2022 CO2 [Moles/Vol] 30.0 mmol/L 21.0-32.0 [facility] Urea nitrogen/Creatinine [Mass ratio] 11.8 mg/mg 10-20 [facility] Laboratory - CoagulationOrde red By: Dr. Dukes on 05-20-2022 PT Coag (PPP) [Time] 28.3 s 11.7-14.9 [facility] No Panel InformationOrdered By: Dr. Che on 05-20-2022 Estimated Creatinine Clearance Calc 48.18 ml/min [facility] Estimated GFR (MDRD) Amer 51 mL/min >60 [facility] Comment on above: GFR Calc Estimated GFR (MDRD) Non-Af Amer 42 mL/min >60 [facility] Comment on above: Non- GFR Calc Serum or plasma calcium cory urement (mass/volume)Ordered By: Dr. Che on 05-20-2022 Calcium [Mass/Vol] 8.8 mg/dL 8.5-10.1 [facility] Serum or plasma creatinine m easurement (mass/volume)Ordered By: Dr. Che on 05-20-2022 Creatinine [Mass/Vol] 1.78 mg/dL 0.70-1.30 [facility] Comment on above: The validity of the calculated GFR & GFRAA in patients over 70 years has not been determined. Clinical correlation is essential. Serum or plasma urea nitroge n measurement (mass/volume)Ordered By: Dr. Che on 05-20-2022 Urea nitrogen [Mass/Vol] 21 mg/dL 09-22 [facility] Thin prep Papanicolaou smear with manual screeningOrdered By: Dr. Che on 05-20-2022 Thin prep Papanicolaou smear with manual screening 7 07-20 [facility] Absolute lymphocyte countOrd ered By: Dr. Dukes on 05-19-2022 Lymphocytes Auto (Unsp spec) [#/Vol] 0.92 10*3/uL 0.83-4.51 [facility] Basophil percentageOrdered B y: Dr. Dukes on 05-19-2022 Basophils/100 WBC (Bld) 0.2 % 0-1 [facility] Bilirubin [Mass/Vol] 0.70 mg/dL 0.20-1.00 [facility] Comment on above: For patients on eltr ombopag therapy, use of Dimension Carman TBIL is not recommended. Eosinophils/100 WBC (Bld) 0.5 % 0-5 [facility] Neutrophils (Bld) [#/Vol] 5.0 10*3/uL 2.0-7.7 [facility] Neutrophils/100 WBC (Bld) 80.2 % 47-70 [facility] Protein [Mass/Vol] 6.4 g/dL 6.4-8.2 [facility] WBC (Bld) [#/Vol] 6.2 10*3/uL 4.4-11.0 [facility] Blood erythrocytes count (nu mber/volume)Ordered By: Dr. Dukes on 05-19-2022 RBC (Bld) [#/Vol] 3.95 10*6/uL 4.6-6.2 [facility] Blood hemoglobin measurement (mass/volume)Ordered By: Dr. Dukes on 05-19-2022 Hemoglobin (Bld) [Mass/Vol] 13.5 g/dL 13.0-16.5 [facility] Blood lymphocytes/100 leukoc ytesOrdered By: Dr. Dukes on 05-19-2022 Lymphocytes/100 WBC (Bld) 14.8 % 19-41 [facility] Blood manual differential co mment interpretation (narrative result)Ordered By: Dr. Dukes on 05-19-2022 Manual differential comment Piyush (Bld) [Interp] SCANNED [facility] Blood monocytes/100 leukocyt esOrdered By: Dr. Dukes on 05-19-2022 Monocytes/100 WBC (Bld) 4.0 % 0-10 [facility] Blood platelet mean volumeOr dered By: Dr. Dukes on 05-19-2022 Platelet mean volume (Bld) [Entitic vol] 10.0 fL 6.2-12.0 [facility] Blood polychromasia detectio n by light microscopyOrdered By: Dr. Dukes on 05-19-2022 Polychromasia LM Ql (Bld) RARE [facility] Determination of erythrocyte mean corpuscular volume (MCV)Ordered By: Dr. Dukes on 05-19-2022 MCV (RBC) [Entitic vol] 104.1 fL 80-94 [facility] Hematocrit Auto (Bld) [Volum e fraction]Ordered By: Dr. Dukes on 05-19-2022 Hematocrit (Bld) [Volume fraction] 41.1 % 40-54 [facility] Laboratory - Chemistry and C hemistry - challengeOrdered By: Dr. Dukes on 05-19-2022 ALP [Catalytic activity/Vol] 64 U/L 45-117 [facility] ALT [Catalytic activity/Vol] 61 U/L 16-61 [facility] Globulin (S) [Mass/Vol] 3.4 g/dL 2.2-4.2 [facility] Magnesium [Mass/Vol] 2.1 mg/dL 1.6-2.6 [facility] Laboratory - Hematology and Cell countsOrdered By: Dr. Dukes on 05-19-2022 Anisocytosis Ql (Bld) 2+ [facility] Erythrocyte distribution width (RBC) [Entitic vol] 74.2 fL 35.1-43.9 [facility] Erythrocyte distribution width (RBC) [Ratio] 19.1 % 11.6-14.6 [facility] Immature granulocytes/100 WBC (Bld) 0.300 % 0.0-0.9 [facility] Comment on above: IG% - Immature Granu locytes (promyelocytes, myelocytes and metamyelocytes) > 1% indicates that a LEFT SHIFT is Present. MCH (RBC) [Entitic mass] 34.2 pg 27.0-32.0 [facility] Nucleated RBC/100 WBC (Bld) [Ratio] 0.6 % 0-5 [facility] Laboratory - Microbiology an d Antimicrobial susceptibilityOrdered By: Dr. Dukes on 05-19-2022 Respiratory pathogens DNA and RNA 12b panel SANDOVAL+probe (Unsp spec) [facility] MCHC Auto (RBC) [Mass/Vol]Or dered By: Dr. Dukes on 05-19-2022 MCHC (RBC) [Mass/Vol] 32.8 g/dL 32-36 [facility] Macrocytes detectionOrdered By: Dr. Dukes on 05-19-2022 Macrocytes Ql (Bld) 1+ [facility] No Panel InformationOrdered By: Dr. Dukes on 05-19-2022 Thyroid Stimulating Hormone (TSH) 1.31 uIU/mL 0.358-3.74 [facility] Ovalocyte detectionOrdered B y: Dr. Dukes on 05-19-2022 Ovalocytes LM Ql (Bld) RARE [facility] Platelets bldOrdered By: Dr. Dukes on 05-19-2022 Platelets (Bld) [#/Vol] 173 10*3/uL 150-450 [facility] Serum or plasma albumin cory urement (mass/volume)Ordered By: Dr. Dukes on 05-19-2022 Albumin [Mass/Vol] 3.0 g/dL 3.2-5.0 [facility] Serum or plasma albumin/glob ulin mass ratioOrdered By: Dr. Dukes on 05-19-2022 Albumin/Globulin [Mass ratio] 0.9 {ratio} 0.9-2.4 [facility] Thin prep Papanicolaou smear with manual screeningOrdered By: Dr. Dukes on 05-19-2022 Thin prep Papanicolaou smear with manual screening 38 U/L 15-37 [facility] Absolute lymphocyte countOrd ered By: Dr. Banda on 05-18-2022 Lymphocytes Auto (Unsp spec) [#/Vol] 0.87 10*3/uL 0.83-4.51 [facility] Basophil percentageOrdered B y: Dr. Banda on 05-18-2022 Basophils/100 WBC (Bld) 0.5 % 0-1 [facility] Chloride [Moles/Vol] 105 mmol/L 98-107 [facility] Eosinophils/100 WBC (Bld) 0.2 % 0-5 [facility] Glucose [Mass/Vol] 124 mg/dL 74-106 [facility] Comment on above: Fasting Glucose resu lt from 100 to 125 mg/dL suggests IMPAIRED HOMEOSTASIS per A.D.A. criteria. Neutrophils (Bld) [#/Vol] 5.3 10*3/uL 2.0-7.7 [facility] Neutrophils/100 WBC (Bld) 80.8 % 47-70 [facility] Potassium [Moles/Vol] 3.8 mmol/L 3.5-5.1 [facility] Comment on above: Slight Hemolysis, Re sult may be falsely increased. Sodium [Moles/Vol] 143 mmol/L 136-145 [facility] WBC (Bld) [#/Vol] 6.6 10*3/uL 4.4-11.0 [facility] Blood erythrocytes count (nu mber/volume)Ordered By: Dr. Banda on 05-18-2022 RBC (Bld) [#/Vol] 4.33 10*6/uL 4.6-6.2 [facility] Blood hemoglobin measurement (mass/volume)Ordered By: Dr. Banda on 05-18-2022 Hemoglobin (Bld) [Mass/Vol] 14.6 g/dL 13.0-16.5 [facility] Blood lymphocytes/100 leukoc ytesOrdered By: Dr. Banda on 05-18-2022 Lymphocytes/100 WBC (Bld) 13.3 % 19-41 [facility] Blood monocytes/100 leukocyt esOrdered By: Dr. Banda on 05-18-2022 Monocytes/100 WBC (Bld) 4.9 % 0-10 [facility] Blood platelet adequacy dete ction by light microscopyOrdered By: Dr. Banda on 05-18-2022 Platelets LM Ql (Bld) SLT DEC ADEQ [facility] Blood platelet mean volumeOr dered By: Dr. Banda on 05-18-2022 Platelet mean volume (Bld) [Entitic vol] 10.3 fL 6.2-12.0 [facility] CNPNon 05-18-2022 CNPN Telephone (CARMOB) ----- YEFRI YANEZ ([id number]) 1965 M [facility] Date Time Provider Department 05/18/22 SAYRA TELLO During your visit today, we recorded the following information about you: Abbey Nash 05/18/2022 8:28 AM Signed Received a records request from [facility]. Will pull and fax records. Abbey Nash 05/18/2022 10:51 AM Signed Faxed records to [facility] at [phone] Allergies As of Date: 05/18/2022 Noted Allergy [...] managed by this patient by: SPOUSE Safia Crar, [facility] Problem List As Of Date 05/18/2022 Noted [...] Encounter Status:Closed by ABBEY NASH on 05/18/22 [facility] COVID-19 virus antigen assay Ordered By: Dr. Dukes on 05-18-2022 SARS-CoV-2 (COVID-19) Ag IA.rapid Ql (Resp) Not detected Not Detect [facility] Comment on above: Normal Reference Ran ge: [...] (RBC) [Entitic vol] 102.1 fL 80-94 [facility] Hematocrit Auto (Bld) [Volum e fraction]Ordered By: Dr. Banda on 05-18-2022 Hematocrit (Bld) [Volume fraction] 44.2 % 40-54 [facility] INR in Blood by Coagulation assayOrdered By: Dr. Banda on 05-18-2022 INR Coag (Bld) [Relative time] 2.8 {INR} [facility] Laboratory - Chemistry and C hemistry - challengeOrdered By: Dr. Banda on 05-18-2022 CO2 [Moles/Vol] 31.0 mmol/L 21.0-32.0 [facility] Natriuretic peptide B (Bld) [Mass/Vol] 343.5 pg/mL 0-100 [facility] Urea nitrogen/Creatinine [Mass ratio] 11.5 mg/mg 10-20 [facility] Laboratory - CoagulationOrde red By: Dr. Banda on 05-18-2022 PT Coag (PPP) [Time] 28.9 s 11.7-14.9 [facility] Laboratory - Hematology and Cell countsOrdered By: Dr. Banda on 05-18-2022 Anisocytosis Ql (Bld) 2+ [facility] Erythrocyte distribution width (RBC) [Entitic vol] 74.1 fL 35.1-43.9 [facility] Erythrocyte distribution width (RBC) [Ratio] 19.4 % 11.6-14.6 [facility] Immature granulocytes/100 WBC (Bld) 0.300 % 0.0-0.9 [facility] Comment on above: IG% - Immature Granu locytes (promyelocytes, myelocytes and metamyelocytes) > 1% indicates that a LEFT SHIFT is Present. MCH (RBC) [Entitic mass] 33.7 pg 27.0-32.0 [facility] Nucleated RBC/100 WBC (Bld) [Ratio] 0.6 % 0-5 [facility] Laboratory - Microbiology an d Antimicrobial susceptibilityOrdered By: Alicia Dukes on 05-18-2022 Respiratory pathogens DNA and RNA 12b panel SANDOVAL+probe (Unsp spec) [facility] MCHC Auto (RBC) [Mass/Vol]Or dered By: Dr. Banda on 05-18-2022 MCHC (RBC) [Mass/Vol] 33.0 g/dL 32-36 [facility] No Panel InformationOrdered By: Dr. Banda on 05-18-2022 Estimated Creatinine Clearance Calc 54.62 ml/min [facility] Estimated GFR (MDRD) Amer 59 mL/min >60 [facility] Comment on above: GFR Calc Estimated GFR (MDRD) Non-Af Amer 48 mL/min >60 [facility] Comment on above: Non- GFR Calc Troponin I High Sensitivity 73 pg/mL 3.0-78.0 [facility] Comment on above: Please Note: New [place] t Units and Gender Specific Reference Ranges. For more information see Policy Stat Procedure [facility] High Sensitivity Troponin (TNIH) and attachments. Ovalocyte detectionOrdered B y: Dr. Banda on 05-18-2022 Ovalocytes LM Ql (Bld) 1+ [facility] Platelets bldOrdered By: Dr. Banda on 05-18-2022 Platelets (Bld) [#/Vol] 183 10*3/uL 150-450 [facility] Serum or plasma calcium cory urement (mass/volume)Ordered By: Dr. Banda on 05-18-2022 Calcium [Mass/Vol] 9.2 mg/dL 8.5-10.1 [facility] Serum or plasma creatinine m easurement (mass/volume)Ordered By: Dr. Banda on 05-18-2022 Creatinine [Mass/Vol] 1.57 mg/dL 0.70-1.30 [facility] Comment on above: The validity of the calculated GFR & GFRAA in patients over 70 years has not been determined. Clinical correlation is essential. Serum or plasma urea nitroge n measurement (mass/volume)Ordered By: Dr. Banda on 05-18-2022 Urea nitrogen [Mass/Vol] 18 mg/dL 7-18 [facility] Thin prep Papanicolaou smear with manual screeningOrdered By: Dr. Banda on 05-18-2022 Thin prep Papanicolaou smear with manual screening 7 5-15 [facility] Basophil percentageOrdered B y: Dr. Chiu on 04-16-2022 Chloride [Moles/Vol] 105 mmol/L 98-107 [facility] Glucose [Mass/Vol] 110 mg/dL 74-106 [facility] Comment on above: Fasting Glucose resu lt from 100 to 125 mg/dL suggests IMPAIRED HOMEOSTASIS per A.D.A. criteria. Potassium [Moles/Vol] 3.7 mmol/L 3.5-5.1 [facility] Sodium [Moles/Vol] 141 mmol/L 136-145 [facility] INR in Blood by Coagulation assayOrdered By: Dr. Camacho on 04-16-2022 INR Coag (Bld) [Relative time] 2.1 {INR} [facility] Laboratory - Chemistry and C hemistry - challengeOrdered By: Dr. Chiu on 04-16-2022 CO2 [Moles/Vol] 31.0 mmol/L 21.0-32.0 [facility] Urea nitrogen/Creatinine [Mass ratio] 17.2 mg/mg 10-20 [facility] Laboratory - CoagulationOrde red By: Dr. Camacho on 04-16-2022 PT Coag (PPP) [Time] 23.6 s 11.7-14.9 [facility] No Panel InformationOrdered By: Dr. Chiu on 04-16-2022 Estimated Creatinine Clearance Calc 49.19 ml/min [facility] Estimated GFR (MDRD) Amer 54 mL/min >60 [facility] Comment on above: GFR Calc Estimated GFR (MDRD) Non-Af Amer 45 mL/min >60 [facility] Comment on above: Non- GFR Calc Serum or plasma calcium cory urement (mass/volume)Ordered By: Dr. Chiu on 04-16-2022 Calcium [Mass/Vol] 9.0 mg/dL 8.5-10.1 [facility] Serum or plasma creatinine m easurement (mass/volume)Ordered By: Dr. Chiu on 04-16-2022 Creatinine [Mass/Vol] 1.69 mg/dL 0.70-1.30 [facility] Comment on above: The validity of the calculated GFR & GFRAA in patients over 70 years has not been determined. Clinical correlation is essential. Serum or plasma urea nitroge n measurement (mass/volume)Ordered By: Dr. Chiu on 04-16-2022 Urea nitrogen [Mass/Vol] 29 mg/dL 7-18 [facility] Thin prep Papanicolaou smear with manual screeningOrdered By: Dr. Chiu on 04-16-2022 Thin prep Papanicolaou smear with manual screening 5 5-15 [facility] Absolute lymphocyte countOrd ered By: Dr. Chiu on 04-15-2022 Lymphocytes Auto (Unsp spec) [#/Vol] 0.77 10*3/uL 0.83-4.51 [facility] Basophil percentageOrdered B y: Dr. Chiu on 04-15-2022 Basophil percentage 3.9 mg/dL 2.5-4.9 [facility] Basophils/100 WBC (Bld) 0.6 % 0-1 [facility] Cholesterol [Mass/Vol] 190 mg/dL <200 [facility] Comment on above: <200 mg/dL Desirable 200-240 mg/dL Borderline >240 mg/dL High Risk Eosinophils/100 WBC (Bld) 0.4 % 0-5 [facility] Neutrophils (Bld) [#/Vol] 3.8 10*3/uL 2.0-7.7 [facility] Neutrophils/100 WBC (Bld) 74.5 % 47-70 [facility] Triglyceride [Mass/Vol] 159 mg/dL <199 [facility] Comment on above: The drugs N-Acetylcy steine and Metamizole may falsely depress this assay.Serum Triglycerides Reference Interval Normal <150 mg/dL Borderline high 150 - 199 mg/dL High 200 - 499 mg/dL Very High > or = 500 mg/dL WBC (Bld) [#/Vol] 5.1 10*3/uL 4.4-11.0 [facility] Blood erythrocytes count (nu mber/volume)Ordered By: Dr. Chiu on 04-15-2022 RBC (Bld) [#/Vol] 3.92 10*6/uL 4.6-6.2 [facility] Blood hemoglobin measurement (mass/volume)Ordered By: Dr. Chiu on 04-15-2022 Hemoglobin (Bld) [Mass/Vol] 12.6 g/dL 13.0-16.5 [facility] Blood lymphocytes/100 leukoc ytesOrdered By: Dr. Chiu on 04-15-2022 Lymphocytes/100 WBC (Bld) 15.1 % 19-41 [facility] Blood monocytes/100 leukocyt esOrdered By: Dr. Chiu on 04-15-2022 Monocytes/100 WBC (Bld) 8.4 % 0-10 [facility] Blood platelet mean volumeOr dered By: Dr. Chiu on 04-15-2022 Platelet mean volume (Bld) [Entitic vol] 11.1 fL 6.2-12.0 [facility] Determination of erythrocyte mean corpuscular volume (MCV)Ordered By: Dr. Chiu on 04-15-2022 MCV (RBC) [Entitic vol] 98.2 fL 80-94 [facility] Hematocrit Auto (Bld) [Volum e fraction]Ordered By: Dr. Chiu on 04-15-2022 Hematocrit (Bld) [Volume fraction] 38.5 % 40-54 [facility] Laboratory - Chemistry and C hemistry - challengeOrdered By: Dr. Chiu on 04-15-2022 Magnesium [Mass/Vol] 2.1 mg/dL 1.6-2.6 [facility] Comment on above: Moderate Hemolysis, Result may be falsely increased. Laboratory - Hematology and Cell countsOrdered By: Dr. Chiu on 04-15-2022 Anisocytosis Ql (Bld) 2+ [facility] Erythrocyte distribution width (RBC) [Entitic vol] 73.5 fL 35.1-43.9 [facility] Erythrocyte distribution width (RBC) [Ratio] 20.7 % 11.6-14.6 [facility] Immature granulocytes/100 WBC (Bld) 1.000 % 0.0-0.9 [facility] Comment on above: IG% - Immature Granu locytes (promyelocytes, myelocytes and metamyelocytes) > 1% indicates that a LEFT SHIFT is Present. MCH (RBC) [Entitic mass] 32.1 pg 27.0-32.0 [facility] Nucleated RBC/100 WBC (Bld) [Ratio] 5.7 % 0-5 [facility] MCHC Auto (RBC) [Mass/Vol]Or dered By: Dr. Chiu on 04-15-2022 MCHC (RBC) [Mass/Vol] 32.7 g/dL 32-36 [facility] Macrocytes detectionOrdered By: Dr. Chiu on 04-15-2022 Macrocytes Ql (Bld) 1+ [facility] Platelets bldOrdered By: Dr. Chiu on 04-15-2022 Platelets (Bld) [#/Vol] 212 10*3/uL 150-450 [facility] Serum or plasma cholesterol in HDL measurement (mass/volume)Ordered By: Dr. Chiu on 04-15-2022 Cholesterol in HDL [Mass/Vol] 39 mg/dL >40 [facility] Comment on above: The drugs N-Acetylcy steine and Metamizole may falsely depress this assay. Reference Range HDL <40 mg/dL Low HDL Cholesterol HDL >or= 60 mg/dL High HDL Cholesterol Serum or plasma cholesterol in VLDL measurement (mass/volume)Ordered By: Dr. Chiu on 04-15-2022 Cholesterol in VLDL [Mass/Vol] 32 mg/dL 5-40 [facility] Serum or plasma low density lipoprotein (LDL) cholesterol measurement (mass/volume)Ordered By: Dr. Chiu on 04-15-2022 Cholesterol in LDL [Mass/Vol] 119 mg/dL 0-130 [facility] Basophil percentageOrdered B y: Dr. Camacho on 04-14-2022 Bilirubin [Mass/Vol] 1.20 mg/dL 0.20-1.00 [facility] Comment on above: For patients on eltr ombopag therapy, use of Dimension Carman TBIL is not recommended. Protein [Mass/Vol] 6.5 g/dL 6.4-8.2 [facility] Blood manual differential co mment interpretation (narrative result)Ordered By: Dr. Camacho on 04-14-2022 Manual differential comment Piyush (Bld) [Interp] SCANNED [facility] Laboratory - Chemistry and C hemistry - challengeOrdered By: Dr. Camacho on 04-14-2022 ALP [Catalytic activity/Vol] 75 U/L 45-117 [facility] ALT [Catalytic activity/Vol] 46 U/L 16-61 [facility] Globulin (S) [Mass/Vol] 3.7 g/dL 2.2-4.2 [facility] No Panel InformationOrdered By: Dr. Camacho on 04-14-2022 Troponin I High Sensitivity 121 pg/mL 3.0-78.0 [facility] Comment on above: Critical Result(s) C alled at: 04:02:32 04/14/2022 by: CHERI Callahan RN ICU. Results read back by same. Please Note: New Test Units and Gender Specific Reference Ranges. For more information see Policy Stat Procedure Carman High Sensitivity Troponin (TNIH) and attachments. No Panel InformationOrdered By: ED PROVIDER on 04-14-2022 Troponin I High Sensitivity 133 pg/mL 3.0-78.0 [facility] Comment on above: Critical Result(s) C alled at: 00:45:24 04/14/2022 by: Mello KAUFFMAN RN (ED) Results read back by same. Please Note: New Test Units and Gender Specific Reference Ranges. For more information see Policy Stat Procedure Carman High Sensitivity Troponin (TNIH) and attachments. Serum or plasma albumin cory urement (mass/volume)Ordered By: Dr. Camacho on 04-14-2022 Albumin [Mass/Vol] 2.8 g/dL 3.2-5.0 [facility] Serum or plasma albumin/glob ulin mass ratioOrdered By: Dr. Camacho on 04-14-2022 Albumin/Globulin [Mass ratio] 0.8 {ratio} 0.9-2.4 [facility] Thin prep Papanicolaou smear with manual screeningOrdered By: Dr. Agyepong on 04-14-2022 Thin prep Papanicolaou smear with manual screening 37 U/L 15-37 [facility] Absolute lymphocyte countOrd ered By: ED PROVIDER on 04-13-2022 Lymphocytes Auto (Unsp spec) [#/Vol] 0.72 10*3/uL 0.83-4.51 [facility] Absolute lymphocyte countOrd ered By: Dr. Turner on 04-13-2022 Lymphocytes Auto (Unsp spec) [#/Vol] 0.85 10*3/uL 0.83-4.51 [facility] Basophil percentageOrdered B y: ED PROVIDER on 04-13-2022 Basophils/100 WBC (Bld) 0.4 % 0-1 [facility] Chloride [Moles/Vol] 111 mmol/L 98-107 [facility] Eosinophils/100 WBC (Bld) 0.0 % 0-5 [facility] Glucose [Mass/Vol] 125 mg/dL 74-106 [facility] Comment on above: Fasting Glucose resu lt from 100 to 125 mg/dL suggests IMPAIRED HOMEOSTASIS per A.D.A. criteria. Neutrophils (Bld) [#/Vol] 4.5 10*3/uL 2.0-7.7 [facility] Neutrophils/100 WBC (Bld) 79.4 % 47-70 [facility] Potassium [Moles/Vol] 3.7 mmol/L 3.5-5.1 [facility] Sodium [Moles/Vol] 143 mmol/L 136-145 [facility] WBC (Bld) [#/Vol] 5.7 10*3/uL 4.4-11.0 [facility] Basophil percentageOrdered B y: Dr. Turner on 04-13-2022 Basophils/100 WBC (Bld) 0.3 % 0-1 [facility] Bilirubin [Mass/Vol] 1.80 mg/dL 0.20-1.00 [facility] Comment on above: For patients on eltr ombopag therapy, use of Dimension Carman TBIL is not recommended. Chloride [Moles/Vol] 108 mmol/L 98-107 [facility] Eosinophils/100 WBC (Bld) 0.3 % 0-5 [facility] Glucose [Mass/Vol] 108 mg/dL 74-106 [facility] Comment on above: Fasting Glucose resu lt from 100 to 125 mg/dL suggests IMPAIRED HOMEOSTASIS per A.D.A. criteria. Neutrophils (Bld) [#/Vol] 5.0 10*3/uL 2.0-7.7 [facility] Neutrophils/100 WBC (Bld) 78.6 % 47-70 [facility] Potassium [Moles/Vol] 3.5 mmol/L 3.5-5.1 [facility] Protein [Mass/Vol] 7.4 g/dL 6.4-8.2 [facility] Sodium [Moles/Vol] 143 mmol/L 136-145 [facility] WBC (Bld) [#/Vol] 6.4 10*3/uL 4.4-11.0 [facility] Blood erythrocytes count (nu mber/volume)Ordered By: ED PROVIDER on 04-13-2022 RBC (Bld) [#/Vol] 4.03 10*6/uL 4.6-6.2 [facility] Blood erythrocytes count (nu mber/volume)Ordered By: Dr. Turner on 04-13-2022 RBC (Bld) [#/Vol] 4.35 10*6/uL 4.6-6.2 [facility] Blood hemoglobin measurement (mass/volume)Ordered By: ED PROVIDER on 04-13-2022 Hemoglobin (Bld) [Mass/Vol] 12.8 g/dL 13.0-16.5 [facility] Blood hemoglobin measurement (mass/volume)Ordered By: Dr. Turner on 04-13-2022 Hemoglobin (Bld) [Mass/Vol] 13.9 g/dL 13.0-16.5 [facility] Blood lymphocytes/100 leukoc ytesOrdered By: ED PROVIDER on 04-13-2022 Lymphocytes/100 WBC (Bld) 12.7 % 19-41 [facility] Blood lymphocytes/100 leukoc ytesOrdered By: Dr. Turner on 04-13-2022 Lymphocytes/100 WBC (Bld) 13.3 % 19-41 [facility] Blood manual differential co mment interpretation (narrative result)Ordered By: ED PROVIDER on 04-13-2022 Manual differential comment Piyush (Bld) [Interp] SCANNED [facility] Comment on above: 1+ ANISOCYTOSIS Blood manual differential co mment interpretation (narrative result)Ordered By: Dr. Turner on 04-13-2022 Manual differential comment Piyush (Bld) [Interp] SCANNED [facility] Comment on above: 1+ ANISOCYTOSIS Blood monocytes/100 leukocyt esOrdered By: ED PROVIDER on 04-13-2022 Monocytes/100 WBC (Bld) 7.1 % 0-10 [facility] Blood monocytes/100 leukocyt esOrdered By: Dr. Turner on 04-13-2022 Monocytes/100 WBC (Bld) 7.0 % 0-10 [facility] Blood platelet mean volumeOr dered By: ED PROVIDER on 04-13-2022 Platelet mean volume (Bld) [Entitic vol] 10.8 fL 6.2-12.0 [facility] Blood platelet mean volumeOr dered By: Dr. Turner on 04-13-2022 Platelet mean volume (Bld) [Entitic vol] 11.7 fL 6.2-12.0 [facility] Determination of erythrocyte mean corpuscular volume (MCV)Ordered By: ED PROVIDER on 04-13-2022 MCV (RBC) [Entitic vol] 94.8 fL 80-94 [facility] Determination of erythrocyte mean corpuscular volume (MCV)Ordered By: Dr. Turner on 04-13-2022 MCV (RBC) [Entitic vol] 97.2 fL 80-94 [facility] Hematocrit Auto (Bld) [Volum e fraction]Ordered By: ED PROVIDER on 04-13-2022 Hematocrit (Bld) [Volume fraction] 38.2 % 40-54 [facility] Hematocrit Auto (Bld) [Volum e fraction]Ordered By: Dr. Turner on 04-13-2022 Hematocrit (Bld) [Volume fraction] 42.3 % 40-54 [facility] INR in Blood by Coagulation assayOrdered By: Dr. Dunn on 04-13-2022 INR Coag (Bld) [Relative time] 1.9 {INR} [facility] Laboratory - Chemistry and C hemistry - challengeOrdered By: ED PROVIDER on 04-13-2022 CO2 [Moles/Vol] 25.0 mmol/L 21.0-32.0 [facility] Urea nitrogen/Creatinine [Mass ratio] 7.7 mg/mg 10- [facility] Laboratory - Chemistry and C hemistry - challengeOrdered By: Dr. Turner on 04-13-2022 Natriuretic peptide B (Bld) [Mass/Vol] 699.0 pg/mL 0-100 [facility] ALP [Catalytic activity/Vol] 83 U/L 45-117 [facility] ALT [Catalytic activity/Vol] 48 U/L 16-61 [facility] CO2 [Moles/Vol] 27.0 mmol/L 21.0-32.0 [facility] Globulin (S) [Mass/Vol] 4.0 g/dL 2.2-4.2 [facility] Urea nitrogen/Creatinine [Mass ratio] 7.3 mg/mg 10- [facility] Laboratory - CoagulationOrde red By: Dr. Dunn on 04-13-2022 PT Coag (PPP) [Time] 21.7 s 11.7-14.9 [facility] Laboratory - Hematology and Cell countsOrdered By: ED PROVIDER on 04-13-2022 Erythrocyte distribution width (RBC) [Entitic vol] 69.1 fL 35.1-43.9 [facility] Erythrocyte distribution width (RBC) [Ratio] 20.2 % 11.6-14.6 [facility] Immature granulocytes/100 WBC (Bld) 0.400 % 0.0-0.9 [facility] Comment on above: IG% - Immature Granu locytes (promyelocytes, myelocytes and metamyelocytes) > 1% indicates that a LEFT SHIFT is Present. MCH (RBC) [Entitic mass] 31.8 pg 27.0-32.0 [facility] Nucleated RBC/100 WBC (Bld) [Ratio] 1.8 % 0-5 [facility] Laboratory - Hematology and Cell countsOrdered By: Dr. Turner on 04-13-2022 Erythrocyte distribution width (RBC) [Entitic vol] 71.7 fL 35.1-43.9 [facility] Erythrocyte distribution width (RBC) [Ratio] 20.5 % 11.6-14.6 [facility] Immature granulocytes/100 WBC (Bld) 0.500 % 0.0-0.9 [facility] Comment on above: IG% - Immature Granu locytes (promyelocytes, myelocytes and metamyelocytes) > 1% indicates that a LEFT SHIFT is Present. MCH (RBC) [Entitic mass] 32.0 pg 27.0-32.0 [facility] Nucleated RBC/100 WBC (Bld) [Ratio] 1.1 % 0-5 [facility] MCHC Auto (RBC) [Mass/Vol]Or dered By: ED PROVIDER on 04-13-2022 MCHC (RBC) [Mass/Vol] 33.5 g/dL 32-36 [facility] MCHC Auto (RBC) [Mass/Vol]Or dered By: Dr. Turner on 04-13-2022 MCHC (RBC) [Mass/Vol] 32.9 g/dL 32-36 [facility] No Panel InformationOrdered By: ED PROVIDER on 04-13-2022 Estimated Creatinine Clearance Calc 44.21 ml/min [facility] Estimated GFR (MDRD) Amer 46 mL/min >60 [facility] Comment on above: GFR Calc Estimated GFR (MDRD) Non-Af Amer 38 mL/min >60 [facility] Comment on above: Non- GFR Calc No Panel InformationOrdered By: Dr. Turner on 04-13-2022 Estimated GFR (MDRD) [facility] Amer 46 mL/min >60 [facility] Comment on above: GFR Calc Estimated GFR (MDRD) Non-Af Amer 38 mL/min >60 [facility] Comment on above: Non- GFR Calc Troponin I High Sensitivity 118 pg/mL 3.0-78.0 [facility] Comment on above: Please Note: New [place] t Units and Gender Specific Reference Ranges. For more information see Policy Stat Procedure Carman High Sensitivity Troponin (TNIH) and attachments. Platelets bldOrdered By: ED PROVIDER on 04-13-2022 Platelets (Bld) [#/Vol] 197 10*3/uL 150-450 [facility] Platelets bldOrdered By: Dr. Turner on 04-13-2022 Platelets (Bld) [#/Vol] 222 10*3/uL 150-450 [facility] Serum or plasma albumin cory urement (mass/volume)Ordered By: Dr. Turner on 04-13-2022 Albumin [Mass/Vol] 3.4 g/dL 3.2-5.0 [facility] Serum or plasma albumin/glob ulin mass ratioOrdered By: Dr. Turner on 04-13-2022 Albumin/Globulin [Mass ratio] 0.8 {ratio} 0.9-2.4 [facility] Serum or plasma calcium cory urement (mass/volume)Ordered By: ED PROVIDER on 04-13-2022 Calcium [Mass/Vol] 9.0 mg/dL 8.5-10.1 [facility] Serum or plasma calcium cory urement (mass/volume)Ordered By: Dr. Turner on 04-13-2022 Calcium [Mass/Vol] 9.4 mg/dL 8.5-10.1 [facility] Serum or plasma creatinine m easurement (mass/volume)Ordered By: ED PROVIDER on 04-13-2022 Creatinine [Mass/Vol] 1.94 mg/dL 0.70-1.30 [facility] Comment on above: The validity of the calculated GFR & GFRAA in patients over 70 years has not been determined. Clinical correlation is essential. Serum or plasma creatinine m easurement (mass/volume)Ordered By: Dr. Turner on 04-13-2022 Creatinine [Mass/Vol] 1.93 mg/dL 0.70-1.30 [facility] Comment on above: The validity of the calculated GFR & GFRAA in patients over 70 years has not been determined. Clinical correlation is essential. Serum or plasma urea nitroge n measurement (mass/volume)Ordered By: ED PROVIDER on 04-13-2022 Urea nitrogen [Mass/Vol] 15 mg/dL 7- [facility] Serum or plasma urea nitroge n measurement (mass/volume)Ordered By: Dr. Turner on 04-13-2022 Urea nitrogen [Mass/Vol] 14 mg/dL 7- [facility] Thin prep Papanicolaou smear with manual screeningOrdered By: ED PROVIDER on 04-13-2022 Thin prep Papanicolaou smear with manual screening 7 5-15 [facility] Thin prep Papanicolaou smear with manual screeningOrdered By: Dr. Turner on 04-13-2022 Thin prep Papanicolaou smear with manual screening 41 U/L 15-37 [facility] Thin prep Papanicolaou smear with manual screening 8 5-15 [facility] CBC W Auto Differential pane l (Bld)on 04-09-2022 Basophils (Bld) [#/Vol] 10*3/uL Normal <0.11 [facility] Comment on above: Order Comment: Speci men Type: BLOOD SPECIMENOrdering Facility: [facility] Address: [address] [place] [address] Performed By: #### 5 7021-8 ####[facility] [id number] [place] [address] [place] Basophils/100 WBC (Bld) 0.3 % Normal [facility] Comment on above: Order Comment: Speci men Type: BLOOD SPECIMENOrdering Facility: [facility] Address: [address] [place] [address] Performed By: #### 5 7021-8 ####[facility] [id number] [place] [address] [place] Differential cell count method Nom (Bld) Auto Normal [facility] Comment on above: Order Comment: Speci men Type: BLOOD SPECIMENOrdering Facility: [facility] Address: [address] [place] [address] Performed By: #### 5 7021-8 ####[facility] [id number] [place] [address] [place] Eosinophils (Bld) [#/Vol] 0.04 10*3/uL Normal <0.46 [facility] Comment on above: Order Comment: Speci men Type: BLOOD SPECIMENOrdering Facility: [facility] Address: [address] [place] [address] Performed By: #### 5 7021-8 ####[facility] [id number] [place] [address] [place] Eosinophils/100 WBC (Bld) 0.7 % Normal [facility] Comment on above: Order Comment: Speci men Type: BLOOD SPECIMENOrdering Facility: [facility] Address: [address] [place] [address] Performed By: #### 5 7021-8 ####[facility] [id number] [address] [place] Erythrocyte distribution width (RBC) [Ratio] 19.2 % High 11.5-15.0 [facility] Comment on above: Order Comment: Speci men Type: BLOOD SPECIMENOrdering Facility: [facility] Address: [address] [place] [address] Performed By: #### 5 7021-8 ####[facility] [id number] [place] [address] [place] Hematocrit (Bld) [Volume fraction] 42.1 % Normal 39.0-51.0 [facility] Comment on above: Order Comment: Speci men Type: BLOOD SPECIMENOrdering Facility: [facility] Address: [address] [place] [address] Performed By: #### 5 7021-8 ####[facility] [id number] [place] [address] [place] Hemoglobin (Bld) [Mass/Vol] 14.5 g/dL Normal 13.0-17.0 [facility] Comment on above: Order Comment: Speci men Type: BLOOD SPECIMENOrdering Facility: [facility] Address: [address] [place] [address] Performed By: #### 5 7021-8 ####[facility] [id number] [place] [address] [place] Immature granulocytes (Bld) [#/Vol] 0.03 10*3/uL Normal <0.10 [facility] Comment on above: Order Comment: Speci men Type: BLOOD SPECIMENOrdering Facility: [facility] Address: [address] [place] [address] Performed By: #### 5 7021-8 ####[facility] [id number] [place] [address] [place] Immature granulocytes/100 WBC (Bld) 0.5 % Normal [facility] Comment on above: Order Comment: Speci men Type: BLOOD SPECIMENOrdering Facility: [facility] Address: [address] [place] [address] Performed By: #### 5 7021-8 ####[facility] [id number] [place] [address] [place] Lymphocytes (Bld) [#/Vol] 1.09 10*3/uL Normal 1.00-4.00 [facility] Comment on above: Order Comment: Speci men Type: BLOOD SPECIMENOrdering Facility: [facility] Address: [address] [place] [address] Performed By: #### 5 7021-8 ####[facility] [id number] [address] [place] Lymphocytes/100 WBC (Bld) 18.7 % Normal [facility] Comment on above: Order Comment: Speci men Type: BLOOD SPECIMENOrdering Facility: [facility] Address: [address] [place] [address] Performed By: #### 5 7021-8 ####[facility] [id number] [place] [address] [place] MCH (RBC) [Entitic mass] 32.2 pg Normal 26.0-34.0 [facility] Comment on above: Order Comment: Speci men Type: BLOOD SPECIMENOrdering Facility: [facility] Address: [address] [place] [address] Performed By: #### 5 7021-8 ####[facility] [id number] [address] [place] MCHC (RBC) [Mass/Vol] 34.4 g/dL Normal 30.5-36.0 [facility] Comment on above: Order Comment: Speci men Type: BLOOD SPECIMENOrdering Facility: [facility] Address: [address] Performed By: #### 5 7021-8 ####[facility] [id number] [place] [address] [place] MCV (RBC) [Entitic vol] 93.3 fL Normal 80.0-100.0 [facility] Comment on above: Order Comment: Speci men Type: BLOOD SPECIMENOrdering Facility: [facility] Address: [address] [place], [place] [id number] Performed By: #### 5 7021-8 ####[facility] LABCLIA [id number] [place] [address] [place] Monocytes (Bld) [#/Vol] 0.45 10*3/uL Normal <0.87 [facility] Comment on above: Order Comment: Speci men Type: BLOOD SPECIMENOrdering Facility: [facility] Address: [address] [place] [address] Performed By: #### 5 7021-8 ####[facility] LABCLIA [id number] [place] [address] [place] Monocytes/100 WBC (Bld) 7.7 % Normal [facility] Comment on above: Order Comment: Speci men Type: BLOOD SPECIMENOrdering Facility: [facility] Address: [address] [place] [address] Performed By: #### 5 7021-8 ####[facility] LABCLIA [id number] [place] [address] [place] Neutrophils (Bld) [#/Vol] 4.20 10*3/uL Normal 1.45-7.50 [facility] Comment on above: Order Comment: Speci men Type: BLOOD SPECIMENOrdering Facility: [facility] Address: [address] [place] [address] Performed By: #### 5 7021-8 ####[facility] LABCLIA [id number] [place] [address] [place] Neutrophils/100 WBC (Bld) 72.1 % Normal [facility] Comment on above: Order Comment: Speci men Type: BLOOD SPECIMENOrdering Facility: [facility] Address: [address] [place] [address] Performed By: #### 5 7021-8 ####[facility] LABCLIA [id number] [facility] [address] [place] [address] [place] Platelet mean volume (Bld) [Entitic vol] 10.4 fL Normal 9.0-12.7 [facility] Comment on above: Order Comment: Speci men Type: BLOOD SPECIMENOrdering Facility: [facility] Address: [address] [place] [address] Performed By: #### 5 7021-8 ####[facility] LABCLIA [id number] [place] [address] [place] Platelets (Bld) [#/Vol] 219 10*3/uL Normal 150-400 [facility] Comment on above: Order Comment: Speci men Type: BLOOD SPECIMENOrdering Facility: [facility] Address: [address] [place], [place] [address] Performed By: #### 5 7021-8 ####[facility] LABCLIA [id number] [place] [address] [place] RBC (Bld) [#/Vol] 4.51 10*6/uL Normal 4.20-6.00 [facility] Comment on above: Order Comment: Speci men Type: BLOOD SPECIMENOrdering Facility: [facility] Address: [address] [place], [place] [address] Performed By: #### 5 7021-8 ####[facility] LABCLIA [id number] [facility] [address] [place] [address] [place] WBC (Bld) [#/Vol] 5.83 10*3/uL Normal 3.70-11.00 [facility] Comment on above: Order Comment: Speci men Type: BLOOD SPECIMENOrdering Facility: [facility] Address: [address] [place] [address], [place] [address] Performed By: #### 5 7021-8 ####[facility] LABCLIA [id number] [address] [place] CNOVSPon 04-09-2022 CNOVSP Visit (SP) Office ([facility]) ----- YEFRI YANEZ ([id number]) 1965 [facility] Date Time Provider Department 04/09/22 11:00 AM HAYLEE WILBURN [facility] During your visit today, we recorded the following information about you: Temperature Pulse Respiration Blood pressure 98.1 degrees 116/minute 16/minute 163/86 Weight 124.3 kg Haylee Wilburn MD 04/09/2022 4:21 PM Signed [facility] [place] Progress Note SERVICE DATE: April 09, 2022 [...] started treatment with cabo + nivo on [facility] 1820 Trial on 08/08/2021 at [facility]. He has baseline HTN and developed worsening HTN after starting treatment. His cabo was held on 08/18/2021, resumed on 09/11/2021. The Nivo was held on 09/11/21 due to pneumonitis, and prednisone 60 mg daily was started and tapered off within about one month. Due to insurance change, he was taken off the trial and referred to [facility]. All treatments were supposed to be [...] radical nephrectomy by Dr. Aravind Hernandez at [facility] in [facility] on 02/06/2022. PATHOLOGY: -Renal cell carcinoma, clear-cell type, 5.3 x 3.0 x 2.7 cm, ISUP nuclear grade 3. -Carcinoma invades renal vein and lurdes-nephritic adipose tissue. -Margins of resection are negative for carcinoma. -Lymphovascular invasion not identified. -Regional lymph nodes not submitted. -[id number]. 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 He denies pain in the chest wall [...] ferrous sulf (more content not included)... Normal [facility] Comprehensive metabolic 2000 panelon 04-09-2022 Albumin [Mass/Vol] 3.5 g/dL Normal 3.2-5.0 [facility] Comment on above: Order Comment: Speci men Type: BLOOD SPECIMENOrdering Facility: [facility] Address: [place] [address] Performed By: #### 2 4323-8, 3016-3 ####[facility] LABORATORYCLIA [id number] [employer] [place] [address] [place] ALP [Catalytic activity/Vol] 86 U/L Normal 45-117 [facility] Comment on above: Order Comment: Speci men Type: BLOOD SPECIMENOrdering Facility: [facility] Address: [address] [address] Performed By: #### 2 4323-8, 6-3 ####[facility] LABORATORYCLIA [id number] [place] [address] [place] ALT [Catalytic activity/Vol] 45 U/L Normal 13-61 [facility] Comment on above: Order Comment: Speci men Type: BLOOD SPECIMENOrdering Facility: [facility] Address: [address] [address] Result Comment: Resu lts may be falsely depressed after the administration of Sulfasalazine and/or Sulfapyridine. Performed By: #### 2 4323-8, 3015-3 ####[facility] LABORATORYCLIA [id number] [address] STATES OF [facility] Anion gap [Moles/Vol] 6 mmol/L Normal 5-16 [facility] Comment on above: Order Comment: Speci men Type: BLOOD SPECIMENOrdering Facility: [facility] Address: [address] [place] [address] Performed By: #### 2 4323-8, 3015-3 ####[facility] LABORATORYCLIA [id number] [address] [place] AST [Catalytic activity/Vol] 40 U/L High 8-34 [facility] Comment on above: Order Comment: Speci men Type: BLOOD SPECIMENOrdering Facility: [facility] Address: [address] [address] Result Comment: Resu lts may be falsely depressed after the administration of Sulfasalazine and/or Sulfapyridine. Performed By: #### 2 4323-8, 6-3 ####[facility] LABORATORYCLIA [id number] [place] [id number] [place] Bilirubin [Mass/Vol] 0.5 mg/dL Normal 0.2-1.0 [facility] Comment on above: Order Comment: Speci men Type: BLOOD SPECIMENOrdering Facility: [facility] Address: [address] [address] Performed By: #### 2 4323-8, 6-3 ####[facility] LABORATORYCLIA [id number] [place] [address] [place] Calcium [Mass/Vol] 9.5 mg/dL Normal 8.5-10.5 [facility] Comment on above: Order Comment: Speci men Type: BLOOD SPECIMENOrdering Facility: [facility] Address: [address] [place] [address] Performed By: #### 2 4323-8, 3015-3 ####[facility] LABORATORYCLIA [id number] [place] [address] [place] Chloride [Moles/Vol] 106 mmol/L Normal 98-107 [facility] Comment on above: Order Comment: Speci men Type: BLOOD SPECIMENOrdering Facility: [facility] Address: [address] [place] [address] Performed By: #### 2 4323-8, 3015-3 ####[facility] LABORATORYCLIA [id number] [place] [address] [place] CO2 [Moles/Vol] 30 mmol/L Normal 21-32 [facility] Comment on above: Order Comment: Speci men Type: BLOOD SPECIMENOrdering Facility: [facility] Address: [address] [place] [address] Performed By: #### 2 4323-8, 3015-3 ####[facility] LABORATORYCLIA [id number] [place] [address] [place] Creatinine [Mass/Vol] 1.57 mg/dL High 0.50-1.40 [facility] Comment on above: Order Comment: Speci men Type: BLOOD SPECIMENOrdering Facility: [facility] Address: [address] [place] [address] Result Comment: Hyun ents receiving either N-Acetylcysteine (NAC) or Metamizole prior to venipuncture, may have falsely depressed results. Performed By: #### 2 4323-8, 3015-3 ####[facility] LABORATORYCLIA [id number] [address] [place] ESTIMATED GLOMERULAR FILTRATION RATE 51 mL/min/1.73m??? Low >=60 [facility] Comment on above: Order Comment: Aaliyah paige Type: BLOOD SPECIMENOrdering Facility: [facility] Address: [address] [address] Result Comment: Laurita mated Glomerular Filtration Rate [...] GFR. Performed By: #### 2 4323-8, 3015-3 ####[facility] LABORATORYCLIA [id number] [address] [place] Glucose [Mass/Vol] 132 mg/dL High 70-100 [facility] Comment on above: Order Comment: Aaliyah gibson Type: BLOOD SPECIMENOrdering Facility: [facility] Address: [address] [place] [address] Result Comment: The [place] Diabetes Association (ADA) provides guidance for cutoff [...]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 Type: BLOOD SPECIMENOrdering Facility: [facility] Address: [address] [place] [address] Result Comment: Laurita mated Glomerular Filtration Rate [...] actual GFR. Performed By: #### 2 4323-8 ####[facility] LABORATORYCLIA [id number] [address] [id number] [place] Glucose [Mass/Vol] 114 mg/dL High 70-100 [facility] Comment on above: Order Comment: Aaliyah gibson Type: BLOOD SPECIMENOrdering Facility: [facility] Address: [address] [address] Result Comment: The [place] [employer] (ADA) provides guidance for cutoff [...] Standards of Medical Care in Diabetes 2016, [place] [employer]. Diabetes Care. 2016.39(Suppl 1). Results may be falsely elevated after the administration of Sulfapyridine. Results may be falsely depressed after the administration of Sulfasalazine. Performed By: #### 2 4323-8 ####[facility]ORATORYCLIA [id number] [place] [address] [place] Potassium [Moles/Vol] 4.7 mmol/L Normal 3.5-5.1 [facility] Comment on above: Order Comment: Aaliyah gibson Type: BLOOD SPECIMENOrdering Facility: [facility] Address: [address] [id number] Performed By: #### 2 4323-8 ####[facility] LABORATORYCLIA [id number] [place] [address] [place] Protein [Mass/Vol] 7.2 g/dL Normal 6.0-8.5 [facility] Comment on above: Order Comment: Speci men Type: BLOOD SPECIMENOrdering Facility: [facility] Address: [address] [address] Performed By: #### 2 4323-8 ####[facility]ORATORYCLIA [id number] [place] [address] [place] Sodium [Moles/Vol] 139 mmol/L Normal 136-145 [facility] Comment on above: Order Comment: Speci men Type: BLOOD SPECIMENOrdering Facility: [facility] Address: [address] [address] Performed By: #### 2 4323-8 ####[facility]ORATORYCLIA [id number] [place] [address] [place] Urea nitrogen [Mass/Vol] 23 mg/dL Normal 7-26 [facility] Comment on above: Order Comment: Speci men Type: BLOOD SPECIMENOrdering Facility: [facility] Address: [address] [address] Performed By: #### 2 4323-8 ####[facility]ORATORYCLIA [id number] [place] [address] [place] Albumin [Mass/Vol] 3.5 g/dL 3.2 - 5.0 g/dL [facility] ALP [Catalytic activity/Vol] 107 U/L 45 - 117 U/L [facility] ALT [Catalytic activity/Vol] 102 U/L High 13 - 61 U/L [facility] Anion gap [Moles/Vol] 9 mmol/L 5 - 16 mmol/L [facility] AST [Catalytic activity/Vol] 62 U/L High 8 - 34 U/L [facility] Bilirubin [Mass/Vol] 0.4 mg/dL 0.2 - 1 .0 mg/dL [facility] Calcium [Mass/Vol] 9.5 mg/dL 8.5 - 10. 5 mg/dL [facility] Chloride [Moles/Vol] 103 mmol/L 98 - 10 7 mmol/L [facility] CO2 [Moles/Vol] 27 mmol/L 21 - 32 mmol/L [facility] Creatinine [Mass/Vol] 1.96 mg/dL High 0.50 - 1.40 mg/dL [facility] Estimated Glomerular Filtration Rate 39 mL/min/1.73m Low >=60 mL/min/1.7 3m [facility] Glucose [Mass/Vol] 114 mg/dL High 70 - 100 mg/dL [facility] Potassium [Moles/Vol] 4.7 mmol/L 3.5 - 5.1 mmol/L [facility] Protein [Mass/Vol] 7.2 g/dL 6.0 - 8.5 g/dL [facility] Sodium [Moles/Vol] 139 mmol/L 136 - 145 mmol/L [facility] Urea nitrogen [Mass/Vol] 23 mg/dL 7 - 26 mg/dL [facility] CNOVon 02-16-2022 CNOV Office Visit ([facility] ) ----- YEFRI YANEZ ([id number]) 1965 [facility] Date Time Provider Department 02/16/22 10:00 AM SAYRA TELLO During your visit today, we recorded the following information about you: Pulse Blood pressure Weight Height 51/minute 90/64 115.7 kg 1.803 m Sayra Tello MD 02/16/2022 11:29 AM Signed [facility] OUTPATIENT VISIT DATE 02/16/2022 OUTPATIENT VISIT TYPE NEW PATIENT PRIMARY CARE PHYSICIAN: Daksha Turner (Sarah) [address] [place] [id number] HISTORY OF PRESENT ILLNESS: 57-year-old male CAD, [...] sometimes tobacco. 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 PAST MEDICAL HISTORY Diagnosis Date Abdominal aortic [...] A DAY cyclobenzapr (more content not included)... [facility] ([facility] ) ----- YEFRI YANEZ ([id number]) 1965 [facility] Date Time Provider Department 02/13/22 2:00 PM [facility] During your visit today, we recorded the following information about you: Temperature Pulse Respiration Blood pressure 98.2 degrees 64/minute 22/minute 138/87 Weight 119.7 kg Suman Peterson APRN.PHOTO MASK PATTERN GENERATOR 02/13/2022 2:41 PM Signed Radiation Oncology - [...] Mason RN (more content not included)... Normal [facility] CBCon 02-10-2022 Erythrocyte distribution width (RBC) [Ratio] 18.6 % High 11.5 - 14.5 [facility] Comment on above: Performed By: #### C BC #### [address] [address] Hematocrit (Bld) [Volume fraction] 41.8 % Normal 41.0 - 52.0 [facility] Comment on above: Performed By: #### C BC #### [address] [address] Hemoglobin (Bld) [Mass/Vol] 13.0 g/dL Low 13.5 - 17.5 [facility] Comment on above: Performed By: #### C BC #### [address] [address] MCHC (RBC) [Mass/Vol] 31.1 g/dL Low 32.0 - 36.0 [facility] Comment on above: Performed By: #### C BC #### [address] [address] MCV (RBC) [Entitic vol] 100 fL Normal 80 - 100 [facility] Comment on above: Performed By: #### C BC #### [address] [address] NUCLEATED RBC 0.0 /100 WBC Normal 0.0 - 0.0 [facility] Comment on above: Performed By: #### C BC #### [address] [address] Platelets (Bld) [#/Vol] 162 10*3/uL Normal 150 - 450 [facility] Comment on above: Performed By: #### C BC #### [address] [address] RBC 4.17 x10E12/L Low 4.50 - 5.90 [facility] Comment on above: Performed By: #### C BC #### [address] [place] [address] WBC (Bld) [#/Vol] 5.5 10*3/uL Normal 4.4 - 11.3 [facility] Comment on above: Performed By: #### C BC #### [address] [place] [address] Daily Progress Note-Medicine on 02-10-2022 Daily Progress [...] night. Objective Data: Objective Information: T PRBPMAPSpO2 Value36.66253037/23255% Date/Time02/10 8: 8: 8: 8: 8:00 Range(36.1C - 36.6C ) (57 - 80 ) (16 - 20 ) (138 - 167 )/ (91 - 126 ) (94% - 100% ) As of 09-Feb-2022 21:15:00, patient is on 3 L/min of oxygen via room air. Pain reported at 02/10 9:46: 0 = None ---- Intake and Output ----- Mn/Dy/Year TimeIntakeOutputNet Feb 10, 2022 6:00 [id number] Feb 09, 2022 10:00 [id number] Feb 09, 2022 2:00 [id number] The Intake and Output Totals for the last 24 hours are: IntakeOutlea [facility] medical centerNet [id number] Physical Exam Narrative: Physical Exam: General: Appears [...] 12.5 mg (more content not included)... Normal [facility] Daily Progress Note-Urologyo n 02-10-2022 Daily Progress [...] overnight. Objective Data: Objective Information: T PRBPMAPSpO2 Value36.04515826/99586% Date/Time02/10 8: 8: 8: 8: 8:00 Range(36.1C - 36.6C ) (57 - 80 ) (16 - 20 ) (138 - 167 )/ (91 - 126 ) (94% - 100% ) As of 09-Feb-2022 21:15:00, patient is on 3 L/min of oxygen via nasal cannula. Pain reported at 02/10 0:00: 0 = None ---- Intake and Output ----- Mn/Dy/Year [facility]IntakeOutQu[facility] Health Feb 10, 2022 6:00 [id number] Feb 09, 2022 10:00 [id number] Feb 09, 2022 2:00 [id number] The Intake and Output Totals for the last 24 hours are: IntakeOutQuorum Health [id number] Physical Exam by System: Constitutional: Well developed, [...] on c (more content not included)... Normal [facility] PT Evaluation v2-physical th erapyon 02-10-2022 PT Evaluation v2-physical therapy Rehab: Info: Mode of Treatmentphysical therapy Time IN09:58 Time OUT10:08 Total Treatment [id number] Patient in ... at end of sessionbed, 3 railings up Communicated with ... at end of sessionbedside nurse Patient Effortgood Symptoms Noted During/After Treatmentnone Patient Profile Reviewedyes Onset of Illness/Injury or Date of [id number] Reason for Referralimpaired mobility, gait training, impaired cognition/safety awareness Referring PhysicianDr. Hernandez General Observations of PatientCleared by nursing to work with patient. Pt supine in bed with HOB elevated. Pt in no apparent distress and willing to participate in therapy. RN agreeable to have patient out of bed and into chair. Pertinent History of Current Functional [id number] male patient status post laparoscopic right radical [...] ambulate with no device. 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 Pt denies falls. Line and Tubestelemetry Vision/Cognition: Affect/Mental Status (Cognitive)WNL Orientation Status (Cognition)oriented x 4 ROM: Lower Extremity: Range of Motionleft lower extremity ROM WFL; right lower extremity ROM WFL MMT: Lower Extremity: Manual Muscle Testing (MMT)left lower extremity strength WFL; right lower extremity strength WFL Mobility/Tone: Bed Mobility Assessment/Interventionss upine to sit Csrcav-nv-Psh [place] (Bed Mobility)independent Transfer Assessment/Interventionss it to stand transfer; stand to sit transfer Sit-Stand [place] (Transfers)modified independence Sit-Stand Assistive Device (Transfers)walker, front-wheeled Stand-Sit [place] (Transfers)modified independence Stand-Sit Assistive Device (Transfers)walker, front-wheeled Gait/Stairs Locomotiongait/ambulation assistive device; gait/ambulation independence; distance ambulated Gait Locomotion (Gait)modified independence Assistive Device (Gait Training)walker, front-wheeled Distance in Feet (Gait Training)250 ft WFLs Motor: Sitting, Static (Balance)good balance Sitting, Dynamic (Balance)good balance Gdb-xc-Onupo (Balance)good balance Standing, Static (Balance)good balance Standing, Dynamic (Balance)good balance Sensory: Pre-Treatment Pain Rating0/10 - no pain Post-Treatment Pain Rating2/10 Comment, Pre/Post Treatment Painsoreness reported at incision site Sensory General Assessmentno sensation deficits identified Health: Observed Emotional Statecooperative; pleasant Plan of Care Reviewed Withpatient Impression: Criteria for Skilled Therapeutic Interventions Met (PT Eval)yes; treatment indicated PT NqmoelehnZ96.2 difficulty walking Physical Therapy Prognosisgood System Pathology/Pathophysiology [...] (PT Eval)5 times/wk Predicted Duration of Therapy Prrjruwyckxg72 days Planned Therapy Interventions (PT Eval)balance training; [...] chair) none To walk in hospital rooma little Climbing 3-5 steps with railinga sarita AM-PAC (PT) Total Score22 Short Term Goals: Gait: Established Gait: [place] Level Goalindependent Gait: Distance Qgtd060 ft Gait: Time Frame for Goal2 wks Balance: Established Ba (more content not included)... Normal [facility] RENAL FUNCTION PANELon 02-10 Albumin [Mass/Vol] 3.4 g/dL Normal 3.4 - 5.0 [facility] Comment on above: Performed By: #### C BC #### [address] [place] [address] Anion gap [Moles/Vol] 11 mmol/L Normal 10 - 20 [facility] Comment on above: Performed By: #### C BC #### [address] [place] [address] Calcium [Mass/Vol] 8.5 mg/dL Low 8.6 - 10.3 [facility] Comment on above: Performed By: #### C BC #### [address] [place] [address] Chloride [Moles/Vol] 103 mmol/L Normal 98 - 107 [facility] Comment on above: Performed By: #### C BC #### [address] [place] [address] Creatinine [Mass/Vol] 1.48 mg/dL High 0.50 - 1.30 [facility] Comment on above: Performed By: #### C BC #### [address] [place] [address] GFR/1.73 sq M.predicted among non-blacks MDRD (S/P/Bld) [Vol rate/Area] 54 mL/min/{1.73_m2} Abnormal >90 [facility] Comment on above: Result Comment: CALC ULATIONS OF ESTIMATED GFR ARE PERFORMED USING THE 2020 CKD-EPI STUDY REFIT EQUATION WITHOUT THE RACE VARIABLE FOR THE IDMS-TRACEABLE CREATININE METHODS. https://jasn.asnjournals.org/content/early//ASN.2020 472384 Performed By: #### C BC #### [address] [place] [address] Glucose [Mass/Vol] 107 mg/dL High 74 - 99 [facility] Comment on above: Performed By: #### C BC #### [address] [place] [address] HCO3 (Bld) [Moles/Vol] 31 mmol/L Normal 21 - 32 [facility] [place] Comment on above: Performed By: #### C BC #### [address] [address] Phosphate [Mass/Vol] 1.5 mg/dL Low 2.5 - 4.9 [facility] Comment on above: Result Comment: The performance characteristics of phosphorus testing in heparinized plasma have been validated by the individual laboratory site where testing is performed. Testing on heparinized plasma is not approved by the FDA; however, such approval is not necessary. Performed By: #### C BC #### [address] [address] Potassium [Moles/Vol] 3.9 mmol/L Normal 3.5 - 5.3 [facility] Comment on above: Performed By: #### C BC #### [address] [address] Sodium [Moles/Vol] 141 mmol/L Normal 136 - 145 [facility] Comment on above: Performed By: #### C BC #### [address] [address] Urea nitrogen [Mass/Vol] 21 mg/dL Normal 6 - 23 [facility] Comment on above: Performed By: #### C BC #### [address] [address] CBCon 02-09-2022 Erythrocyte distribution width (RBC) [Ratio] 19.1 % High 11.5 - 14.5 [facility] Comment on above: Performed By: #### C BC #### [address] [address] Hematocrit (Bld) [Volume fraction] 43.1 % Normal 41.0 - 52.0 [facility] Comment on above: Performed By: #### C BC #### [address] [address] Hemoglobin (Bld) [Mass/Vol] 13.5 g/dL Normal 13.5 - 17.5 [facility] Comment on above: Performed By: #### C BC #### [address] [address] MCHC (RBC) [Mass/Vol] 31.3 g/dL Low 32.0 - 36.0 [facility] Comment on above: Performed By: #### C BC #### [address] [address] MCV (RBC) [Entitic vol] 100 fL Normal 80 - 100 [facility] Comment on above: Performed By: #### C BC #### [address] [address] NUCLEATED RBC 0.0 /100 WBC Normal 0.0 - 0.0 [facility] Comment on above: Performed By: #### C BC #### [address] [address] Platelets (Bld) [#/Vol] 150 10*3/uL Normal 150 - 450 [facility] Comment on above: Performed By: #### C BC #### [address] [address] RBC 4.29 x10E12/L Low 4.50 - 5.90 [facility] Comment on above: Performed By: #### C BC #### [address] [address] WBC (Bld) [#/Vol] 5.8 10*3/uL Normal 4.4 - 11.3 [facility] Comment on above: Performed By: #### C BC #### [address] [address] Daily Progress Note-Medicine on 02-09-2022 Daily Progress [...] night. Objective Data: Objective Information: T PRBPMAPSpO2 [id number]% Date/Time02/09 8: 8: 8: 8: 8:00 Range(36.4C [...] ----- Mn/Dy/Year TimeIntakeOutputNet Feb 09, 2022 6:00 [id number] Feb 08, 2022 10:00 [id number] Feb 08, 2022 2:00 [id number] The Intake and Output Totals for the last 24 hours are: IntakeOutputNet [id number] Physical Exam Narrative: Physical Exam: General: Appears [...] & Recom (more content not included)... Normal [facility] Daily Progress Note-Urologyo n 02-09-2022 Daily Progress [...] well. Objective Data: Objective Information: T PRBPMAPSpO2 [id number]% Date/Time02/09 8: 8: 8: 8: 8:00 Range(36.4C [...] Mild ---- Intake and Output ----- Mn[facility]Dy/[facility] Feb 09, 2022 6:00 [id number] Feb 08, 2022 10:00 [id number] Feb 08, 2022 2:00 [id number] The Intake and Output Totals for the last 24 hours are: [facility] [id number] Physical Exam by System: Constitutional: Well developed, [...] - ap (more content not included)... Normal [facility] Discharge Planning Olji3ie 1 04-12-2021 Discharge Planning Note2 Discharge Planning: Needs Prior to Discharge (ex. Home Care Orders, IV/O2 prescriptions) TBD pending therapy evaluations and weaning off O2 Planned Dispositionhome Patient/Change Release Manager Stated Goalto go home Anticipated Discharge [id number] Discharge Planning 02/09/2022 1100- This TCC met with the patient at the bedside. Patient with no use of HHC or DME prior to admission. Patient currently on 3L of O2 with no prior home O2 use. This TCC verified the patient's ability to obtain/afford medications. Patient's needs are TBD at this time, pending therapy evaluations. Patient lives at home in [place] with Miya and plans to return there. Family to provide transport at the time of d/c. Kitty Farias RN TCC 02/10- PT recs HHC. This TCC met with the pt at the bedside. Pt is currently refusing HHC, at this time. However, pt wants a walker. This TCC received a walker script and sent a referral to [facility] for delivery. Family to provide transport at the time of d/c. Cameron Atwood Assessment: Discharge Planning Assessment [id number] Discharge Planning Assessment Completed Kevin Farias Primary Contact Name and NumberwifeMiya [phone] Prior Level of FunctioningIndependent Lives Withspouse Stated Reason for Admissionright laparoscopic nephrectomy [place] [facility] [place] Recent Falls/ Injury/ Need Assist with Ambulationn/a Home Care Agency/Support ServicesN/A Resource/Environmental Concernsnone Anticipated Transition [place] Services Anticipated at Transitionnone Readmission Within the Last 30 Daysno previous admission in last 30 days PCP Last Date Seenlast month InsuranceMMO Super Med Special Considerationsn/a Transportation Home Who/Fidel (, Miya [phone]) Medication Adherence/Afford/Obtainye s Discharge Documentation: Discharge/Transfer Date/[id number] 18:00 Discharged Accompanied Byspouse Transportation Methodprivate car Discharge Modewheelchair Code StatusCode Status order at time of discharge: Full Code Discharge Order Writtenyes [place] DNR Form Sent with Patient and/or Familyn/a Valuables/Medications/Bel ongings Returnedyes Final Disposition.Home Electronic Signatures: Kitty Farias (STAFF N) (Signed 09-Feb-2022 11:10) Authored: Discharge Planning, Assessment, Discharge Documentation Cameron Atwood (RN) (Signed 10-Feb-2022 11:44) Authored: Discharge Planning, Discharge Documentation Marysol Hussein (STAFF N) (Signed 10-Feb-2022 18:21) Authored: Discharge Planning, Discharge Documentation Last Updated: 10-Feb-2022 18:21 by Marysol Hussein (STAFF N) Normal [facility] RENAL FUNCTION PANELon 02-09 Albumin [Mass/Vol] 3.5 g/dL Normal 3.4 - 5.0 [facility] Comment on above: Performed By: #### C BC #### [address] [address] Anion gap [Moles/Vol] 10 mmol/L Normal 10 - 20 [facility] Comment on above: Performed By: #### C BC #### [address] [address] Calcium [Mass/Vol] 8.8 mg/dL Normal 8.6 - 10.3 [facility] Comment on above: Performed By: #### C BC #### [address] [place] [address] Chloride [Moles/Vol] 102 mmol/L Normal 98 - 107 [facility] Comment on above: Performed By: #### C BC #### [address] [address] Creatinine [Mass/Vol] 1.84 mg/dL High 0.50 - 1.30 [facility] Comment on above: Performed By: #### C BC #### [address] [address] GFR/1.73 sq M.predicted among non-blacks MDRD (S/P/Bld) [Vol rate/Area] 42 mL/min/{1.73_m2} Abnormal >90 [facility] Comment on above: Result Comment: CALC ULATIONS OF ESTIMATED GFR ARE PERFORMED USING THE 2020 CKD-EPI STUDY REFIT EQUATION WITHOUT THE RACE VARIABLE FOR THE IDMS-TRACEABLE CREATININE METHODS. https://jasn.asnjournals.org/content/early//ASN.2020 346768 Performed By: #### C BC #### [address] [address] Glucose [Mass/Vol] 127 mg/dL High 74 - 99 [facility] Comment on above: Performed By: #### C BC #### [address] [address] HCO3 (Bld) [Moles/Vol] 33 mmol/L High 21 - 32 [facility] Comment on above: Performed By: #### C BC #### [address] [address] Phosphate [Mass/Vol] 2.8 mg/dL Normal 2.5 - 4.9 [facility] Comment on above: Result Comment: The performance characteristics of phosphorus testing in heparinized plasma have been validated by the individual laboratory site where testing is performed. Testing on heparinized plasma is not approved by the FDA; however, such approval is not necessary. Performed By: #### C BC #### [address] [address] Potassium [Moles/Vol] 4.3 mmol/L Normal 3.5 - 5.3 [facility] Comment on above: Performed By: #### C BC #### [address] [address] Sodium [Moles/Vol] 141 mmol/L Normal 136 - 145 [facility] Comment on above: Performed By: #### C BC #### [address] [address] Urea nitrogen [Mass/Vol] 25 mg/dL High 6 - 23 [facility] Comment on above: Performed By: #### C BC #### [address] [address] CBCon 02-08-2022 Erythrocyte distribution width (RBC) [Ratio] 19.7 % High 11.5 - 14.5 [facility] Comment on above: Performed By: #### C BC #### [address] [address] Hematocrit (Bld) [Volume fraction] 46.7 % Normal 41.0 - 52.0 [facility] Comment on above: Performed By: #### C BC #### [address] [address] Hemoglobin (Bld) [Mass/Vol] 14.0 g/dL Normal 13.5 - 17.5 [facility] Comment on above: Performed By: #### C BC #### [address] [address] MCHC (RBC) [Mass/Vol] 30.0 g/dL Low 32.0 - 36.0 [facility] Comment on above: Performed By: #### C BC #### [address] [address] MCV (RBC) [Entitic vol] 106 fL High 80 - 100 [facility] Comment on above: Performed By: #### C BC #### [address] [address] NUCLEATED RBC 0.3 /100 WBC Normal 0.0 - 0.0 [facility] Comment on above: Performed By: #### C BC #### [address] [address] Platelets (Bld) [#/Vol] 123 10*3/uL Low 150 - 450 [facility] Comment on above: Performed By: #### C BC #### [address] [place] [address] RBC 4.42 x10E12/L Low 4.50 - 5.90 [facility] Comment on above: Performed By: #### C BC #### [address] [place] [address] WBC (Bld) [#/Vol] 6.8 10*3/uL Normal 4.4 - 11.3 [facility] Comment on above: Performed By: #### C BC #### [address] [address] COMPREHENSIVE PANELon 2021 Albumin [Mass/Vol] 3.5 g/dL Normal 3.4 - 5.0 [facility] Comment on above: Performed By: #### C MP #### [address] [address] ALP [Catalytic activity/Vol] 54 U/L Normal 33 - 120 [facility] Comment on above: Performed By: #### C MP #### [address] [address] ALT [Catalytic activity/Vol] 121 U/L High 10 - 52 [facility] Comment on above: Result Comment: Hyun ents treated with Sulfasalazine may generate falsely decreased results for ALT. Performed By: #### C MP #### [address] [place] [address] Anion gap [Moles/Vol] 14 mmol/L Normal 10 - 20 [facility] Comment on above: Performed By: #### C MP #### [address] [address] AST [Catalytic activity/Vol] 83 U/L High 9 - 39 [facility] Comment on above: Result Comment: MILD HEMOLYSIS DETECTED. The result may be falsely elevated due to hemolysis or other interferents. Clinical correlation is recommended. Repeat testing may be considered. Performed By: #### C MP #### [address] [place] [address] Bilirubin [Mass/Vol] 0.9 mg/dL Normal 0.0 - 1.2 [facility] Comment on above: Performed By: #### C MP #### [address] [address] Calcium [Mass/Vol] 8.5 mg/dL Low 8.6 - 10.3 [facility] Comment on above: Performed By: #### C MP #### [address] [address] Chloride [Moles/Vol] 103 mmol/L Normal 98 - 107 [facility] Comment on above: Performed By: #### C MP #### [address] [address] Creatinine [Mass/Vol] 1.90 mg/dL High 0.50 - 1.30 [facility] Comment on above: Performed By: #### C MP #### [address] [address] GFR/1.73 sq M.predicted among non-blacks MDRD (S/P/Bld) [Vol rate/Area] 40 mL/min/{1.73_m2} Abnormal >90 [facility] Comment on above: Result Comment: CALC ULATIONS OF ESTIMATED GFR ARE PERFORMED USING THE 2020 CKD-EPI STUDY REFIT EQUATION WITHOUT THE RACE VARIABLE FOR THE IDMS-TRACEABLE CREATININE METHODS. https://jasn.asnjournals.org/content//ASN.2020 317142 Performed By: #### C MP #### [address] [address] Glucose [Mass/Vol] 92 mg/dL Normal 74 - 99 [facility] Comment on above: Performed By: #### C MP #### [address] [address] HCO3 (Bld) [Moles/Vol] 24 mmol/L Normal 21 - 32 [facility] [place] Comment on above: Performed By: #### C MP #### [address] [address] Potassium [Moles/Vol] 4.2 mmol/L Normal 3.5 - 5.3 [facility] Comment on above: Result Comment: MILD HEMOLYSIS DETECTED. The result may be falsely elevated due to hemolysis or other interferents. Clinical correlation is recommended. Repeat testing may be considered. Performed By: #### C MP #### [address] [address] Protein [Mass/Vol] 6.0 g/dL Low 6.4 - 8.2 [facility] Comment on above: Performed By: #### C MP #### [address] [address] Sodium [Moles/Vol] 137 mmol/L Normal 136 - 145 [facility] Comment on above: Performed By: #### C MP #### [address] [address] Urea nitrogen [Mass/Vol] 31 mg/dL High 6 - 23 [facility] Comment on above: Performed By: #### C MP #### [address] [address] Daily Progress Note-Medicine on 02-08-2022 Daily Progress [...] night. Objective Data: Objective Information: T PRBPMAPSpO2 [id number] % Date/Time02/08 8: 8: 8: 8: 11: [...] Mild ---- Intake and Output ----- Mn/Dy/Year TimeIntakeOutQuorum Health Feb 08, 2022 6:00 [id number] Feb 07, 2022 10:00 [id number] Feb 07, 2022 2:00 [id number] The Intake and Output Totals for the last 24 hours are: IntakeOutputNet [id number] Physical Exam Narrative: Physical Exam: General: Appears [...] # Atelectasi (more content not included)... Normal [facility] Daily Progress Note-Urologyo n 02-08-2022 Daily Progress [...] complaints. Objective Data: Objective Information: T PRBPMAPSpO2 [id number]/[id number] % Date/Time02/08 8: 8: 8: 8: 11: [...] ----- Mn/Dy/Year TimeIntakeOutputNet Feb 08, 2022 6:00 [id number] Feb 07, 2022 10:00 [id number] Feb 07, 2022 2:00 pm228.8250-22 The Intake and Output Totals for the last 24 hours are: IntakeOutQuorum Health [id number] Physical Exam Narrative: Physical Exam: General: in [...] Updated: 08-Feb-2022 10:32 by Andre Mota) Normal [facility] ARTERIAL FULL PANELon 12-03- 2022 OXY HGB 92.9 % Low 94.0 - 98.0 [facility] Comment on above: Result Comment: Test report [...] 08:50 Performed By: #### C BC #### [address] [place] [address] SO2 93 % Low 94 - 100 [facility] Comment on above: Result Comment: Test report [...] 08:50 Performed By: #### C BC #### [place] [id number] LANRE'S TEST[COLLATERAL CIRCULATION] YES, RR Normal [facility] Comment on above: Performed By: #### C BC #### [place] [id number] Anion gap [Moles/Vol] 9 mmol/L Low 10 - 25 [facility] Comment on above: Performed By: #### C BC #### [address] [address] BASE EXCESS-BLOOD 2.9 mmol/L Normal -2.0 - 3.0 [facility] Comment on above: Performed By: #### C BC #### [address] [address] BICARB, CALCULATED 31.0 mmol/L High 22.0 - 26.0 [facility] Comment on above: Performed By: #### C BC #### [address] [place] [address] CALCIUM,IONIZED 1.17 mmol/L Normal 1.10 - 1.33 [facility] Comment on above: Performed By: #### C BC #### [address] [place] [address] Chloride [Moles/Vol] 105 mmol/L Normal 98 - 107 [facility] Comment on above: Performed By: #### C BC #### [address] [place] [address] EPAP CMH2O 8.0 cm H2O Normal [facility] Comment on above: Performed By: #### C BC #### [address] [address] FLOW 8.0 LPM Normal [facility] Comment on above: Performed By: #### C BC #### [address] [address] Glucose [Mass/Vol] 117 mg/dL High 74 - 99 [facility] Comment on above: Performed By: #### C BC #### [address] [address] Hematocrit (Bld) [Volume fraction] 40.0 % Low 41.0 - 52.0 [facility] Comment on above: Performed By: #### C BC #### [address] [place] [address] Hemoglobin (Bld) [Mass/Vol] 13.2 g/dL Normal 13.5 - 17.5 [facility] Comment on above: Result Comment: Test report has been amended to note detection of an absorbance or turbidity error which may cause inaccurate results. The result is unchanged but should be interpreted with caution and in conjunction with additional laboratory information. Performed By: #### C BC #### [address] [place] [address] IPAP CMH2O 16.0 cm H2O Normal [facility] Comment on above: Performed By: #### C BC #### [address] [place] [address] Lactate [Moles/Vol] 0.9 mmol/L Normal 0.4 - 2.0 [facility] Comment on above: Performed By: #### C BC #### [address] [address] Oxygen (Bld) [Partial pressure] 95 mm[Hg] Normal 85 - 95 [facility] Comment on above: Performed By: #### C BC #### [address] [address] PATIENT TEMPERATURE 37.0 degrees C Normal [facility] Comment on above: Result Comment: NOTE : PATIENT RESULTS ARE NOT CORRECTED FOR TEMPERATURE. Performed By: #### C BC #### [address] [address] PCO2 63 mmHg High 38 - 42 [facility] Comment on above: Performed By: #### C BC #### [address] [address] pH (Bld) 7.30 [pH] Low 7.38 - 7.42 [facility] Comment on above: Performed By: #### C BC #### [address] [address] Potassium [Moles/Vol] 4.6 mmol/L Normal 3.5 - 5.3 [facility] Comment on above: Performed By: #### C BC #### [address] [address] Sodium [Moles/Vol] 140 mmol/L Normal 136 - 145 [facility] Comment on above: Performed By: #### C BC #### [address] [address] VENTILATOR MODE BiPAP Normal [facility] Comment on above: Performed By: #### C BC #### [address] [address] LANRE'S TEST[COLLATERAL CIRCULATION] N/A Normal [facility] Comment on above: Order Comment: BIPAP 14/8 4 LPM Performed By: #### A FPA4 ####[address] [address] Anion gap [Moles/Vol] 11 mmol/L Normal 10 - 25 [facility] Comment on above: Order Comment: BIPAP 19/10 4 LPM Performed By: #### A FPA4 ####[address] [address] BASE EXCESS-BLOOD 1.5 mmol/L Normal -2.0 - 3.0 [facility] Comment on above: Order Comment: BIPAP 19/10 4 LPM Performed By: #### A FPA4 ####[address] [address] BICARB, CALCULATED 30.3 mmol/L High 22.0 - 26.0 [facility] Comment on above: Order Comment: BIPAP 19/10 4 LPM Performed By: #### A FPA4 ####[address] [address] CALCIUM,IONIZED 1.18 mmol/L Normal 1.10 - 1.33 [facility] Comment on above: Order Comment: BIPAP 19/10 4 LPM Performed By: #### A FPA4 ####[address] [address] Chloride [Moles/Vol] 104 mmol/L Normal 98 - 107 [facility] Comment on above: Order Comment: BIPAP 19/10 4 LPM Performed By: #### A FPA4 ####[address] [address] Glucose [Mass/Vol] 168 mg/dL High 74 - 99 [facility] Comment on above: Order Comment: BIPAP 19/10 4 LPM Performed By: #### A FPA4 ####[address] [place] [address] Hematocrit (Bld) [Volume fraction] 42.0 % Normal 41.0 - 52.0 [facility] Comment on above: Order Comment: BIPAP 14 4 LPM Performed By: #### A FPA4 ####[address] [address] Hemoglobin (Bld) [Mass/Vol] 14.1 g/dL Normal 13.5 - 17.5 [facility] Comment on above: Order Comment: BIPAP 14/8 4 LPM Performed By: #### A FPA4 ####[address] [address] Lactate [Moles/Vol] 0.9 mmol/L Normal 0.4 - 2.0 [facility] Comment on above: Order Comment: BIPAP 14/ 4 LPM Performed By: #### A FPA4 ####[address] [address] OXY HGB 87.0 % Low 94.0 - 98.0 [facility] [facility] Comment on above: Order Comment: BIPAP 14/ 4 LPM Performed By: #### A FPA4 ####[address] [address] Oxygen (Bld) [Partial pressure] 63 mm[Hg] Low 85 - 95 [facility] Comment on above: Order Comment: BIPAP 14/ 4 LPM Performed By: #### A FPA4 ####[address] [address] PATIENT TEMPERATURE 37.0 degrees C Normal [facility] Comment on above: Order Comment: BIPAP 14/ 4 LPM Result Comment: NOTE : PATIENT RESULTS ARE NOT CORRECTED FOR TEMPERATURE. Performed By: #### A FPA4 ####[address] [address] PCO2 66 mmHg High 38 - 42 [facility] Comment on above: Order Comment: BIPAP 14/8 4 LPM Performed By: #### A FPA4 ####[address] [address] pH (Bld) 7.27 [pH] Low 7.38 - 7.42 [facility] Comment on above: Order Comment: BIPAP 14/8 4 LPM Performed By: #### A FPA4 ####[address] [address] Potassium [Moles/Vol] 4.4 mmol/L Normal 3.5 - 5.3 [facility] Comment on above: Order Comment: BIPAP 14/8 4 LPM Performed By: #### A FPA4 ####[address] [address] SO2 89 % Low 94 - 100 [facility] Comment on above: Order Comment: BIPAP 14/ 4 LPM Performed By: #### A FPA4 ####[address] [address] Sodium [Moles/Vol] 141 mmol/L Normal 136 - 145 [facility] Comment on above: Order Comment: BIPAP 19/10 4 LPM Performed By: #### A FPA4 ####[address] [address] CBCon 02-07-2022 Erythrocyte distribution width (RBC) [Ratio] 19.1 % High 11.5 - 14.5 [facility] Comment on above: Performed By: #### C BC ####[address] [address] Hematocrit (Bld) [Volume fraction] 43.1 % Normal 41.0 - 52.0 [facility] Comment on above: Performed By: #### C BC ####[address] [address] Hemoglobin (Bld) [Mass/Vol] 13.6 g/dL Normal 13.5 - 17.5 [facility] Comment on above: Performed By: #### C BC ####[address] [address] MCHC (RBC) [Mass/Vol] 31.6 g/dL Low 32.0 - 36.0 [facility] Comment on above: Performed By: #### C BC ####[address] [address] MCV (RBC) [Entitic vol] 100 fL Normal 80 - 100 [facility] Comment on above: Performed By: #### C BC ####[address] [address] NUCLEATED RBC 0.4 /100 WBC Normal 0.0 - 0.0 [facility] Comment on above: Performed By: #### C BC ####[facility] [place] [address] Platelets (Bld) [#/Vol] 150 10*3/uL Normal 150 - 450 [facility] Comment on above: Performed By: #### C BC ####[place] [id number] [place] [address] RBC 4.32 x10E12/L Low 4.50 - 5.90 [facility] Comment on above: Performed By: #### C BC ####[address] [address] WBC (Bld) [#/Vol] 7.1 10*3/uL Normal 4.4 - 11.3 [facility] Comment on above: Performed By: #### C BC ####[address] [address] Consult-DACR, Medicineon Consult-DACR, Medicine Service: Service: DACR [...] Mushrooms: Unknown Objective: Objective Information: T PRBPMAPSpO2 [id number]% Date/Time02/07 16: 16: 16: 16: 11: 16:00 [...] 2.9 Bi (more content not included)... Normal [facility] Daily Progress Note - Critic Mcbride 02-07-2022 Daily Progress Note - Critical Care Subjective Data: ID Statement: YEFRI YANEZ is a 57 year old Male who is Hospital Day # 2 and ICU Day #2 and POD #1 for laparoscopic right radical nephrectomy. AAOx3, on nasal cannula. No complaints of pain on exam. Resting comfortably. Objective Data: Objective Information T PRBPMAPSpO2 [id number]/671780% Date/Time02/07 4: 7: 7: 7: 7: 7:00 [...] for the last 24 hours are: IntakeOutputNet [id number] Drain and tube details (included in I&O totals) 1100 cc Indwelling Catheter - Urethral( 07-Feb-2022 06:00:00 ) Date: Weight/Scale Type: 07-Feb-2022 06:73861.7 kg / bed 06-Feb-2022 09:86204 kg 06-Feb-2022 09:91708 kg Physical Exam by System: Neurological: alert [...] h range: ( 7.26 - 7.45 ) [id number] 24 h range: ( 46 - 68 ) SO293 24 h range: ( 87 (more content not included)... Normal [facility] Daily Progress Note-Urologyo n 02-07-2022 Daily Progress [...] noted. Objective Data: Objective Information: T PRBPMAPSpO2 [id number]/234246% Date/Time02/07 4: 7: 7: 7: 7: 7:00 [...] for the last 24 hours are: IntakeOutputNet [id number] Physical Exam Narrative: Physical Exam: General: in [...] h range: ( 7.26 - 7.45 ) [id number] 24 h range: ( 46 - 68 [...] Updated: 07-Feb-2022 07:33 by Andre Mota) Normal [facility] GLUCOSE-POCTon 02-07-2022 Glucose [Mass/Vol] 124 mg/dL High 74 - 99 [facility] Comment on above: Performed By: #### G STEFANI ####[facility] [place] [address] MAGNESIUMon 02-07-2022 Magnesium [Mass/Vol] 1.98 mg/dL Normal 1.60 - 2.40 [facility] Comment on above: Performed By: #### M G ####[address] [address] RENAL FUNCTION PANELon 02-07 Albumin [Mass/Vol] 3.7 g/dL Normal 3.4 - 5.0 [facility] Comment on above: Performed By: #### R ENAL #### [address] [address] Anion gap [Moles/Vol] 14 mmol/L Normal 10 - 20 [facility] Comment on above: Performed By: #### R ENAL #### [address] [address] Calcium [Mass/Vol] 8.4 mg/dL Low 8.6 - 10.3 [facility] Comment on above: Performed By: #### R ENAL #### [address] [address] Chloride [Moles/Vol] 107 mmol/L Normal 98 - 107 [facility] Comment on above: Performed By: #### R ENAL #### [address] [address] Creatinine [Mass/Vol] 1.57 mg/dL High 0.50 - 1.30 [facility] Comment on above: Performed By: #### R ENAL #### [address] [address] GFR/1.73 sq M.predicted among non-blacks MDRD (S/P/Bld) [Vol rate/Area] 51 mL/min/{1.73_m2} Abnormal >90 [facility] Comment on above: Result Comment: CALC ULATIONS OF ESTIMATED GFR ARE PERFORMED USING THE 2020 CKD-EPI STUDY REFIT EQUATION WITHOUT THE RACE VARIABLE FOR THE IDMS-TRACEABLE CREATININE METHODS. https://jasn.asnjournals.org/content//ASN.2020 067540 Performed By: #### R ENAL #### [address] [place] [address] Glucose [Mass/Vol] 115 mg/dL High 74 - 99 [facility] Comment on above: Performed By: #### R ENAL #### [address] [place] [address] HCO3 (Bld) [Moles/Vol] 29 mmol/L Normal 21 - 32 [facility] [place] Comment on above: Performed By: #### R ENAL #### [address] [address] Phosphate [Mass/Vol] 6.1 mg/dL High 2.5 - 4.9 [facility] Comment on above: Result Comment: The performance characteristics of phosphorus testing in heparinized plasma have been validated by the individual laboratory site where testing is performed. Testing on heparinized plasma is not approved by the FDA; however, such approval is not necessary. Performed By: #### R ENAL #### [address] [address] Potassium [Moles/Vol] 4.6 mmol/L Normal 3.5 - 5.3 [facility] Comment on above: Performed By: #### R ENAL #### [address] [address] Sodium [Moles/Vol] 145 mmol/L Normal 136 - 145 [facility] Comment on above: Performed By: #### R ENAL #### [address] [address] Urea nitrogen [Mass/Vol] 25 mg/dL High 6 - 23 [facility] Comment on above: Performed By: #### R ENAL #### [address] [address] ABO/RH GROUP TESTon 02-07-20 22 ABO TYPE Canceled Normal [facility] Comment on above: Order Comment: TEST ABO/RH GROUP TEST WAS CANCELLED, 02/06/2022 15:57 not needed. Performed By: #### C BC #### [address] [address] RH TYPE Canceled Normal [facility] Comment on above: Order Comment: TEST ABO/RH GROUP TEST WAS CANCELLED, 02/06/2022 15:57 not needed. Performed By: #### C BC #### [address] [address] ARTERIAL FULL PANELon 2021 LANRE'S TEST[COLLATERAL CIRCULATION] N/A Normal [facility] Comment on above: Order Comment: 4 LPM NC Performed By: #### A FPA4 #### [address] [address] Anion gap [Moles/Vol] 10 mmol/L Normal 10 - 25 [facility] Comment on above: Order Comment: 4 LPM NC Performed By: #### A FPA4 #### [address] [address] BASE EXCESS-BLOOD 1.4 mmol/L Normal -2.0 - 3.0 [facility] Comment on above: Order Comment: 4 LPM NC Performed By: #### A FPA4 #### [address] [address] BICARB, CALCULATED 30.5 mmol/L High 22.0 - 26.0 [facility] Comment on above: Order Comment: 4 LPM NC Performed By: #### A FPA4 #### [address] [address] CALCIUM,IONIZED 1.17 mmol/L Normal 1.10 - 1.33 [facility] Comment on above: Order Comment: 4 LPM NC Performed By: #### A FPA4 #### [address] [address] Chloride [Moles/Vol] 105 mmol/L Normal 98 - 107 [facility] Comment on above: Order Comment: 4 LPM NC Performed By: #### A FPA4 #### [address] [address] Glucose [Mass/Vol] 142 mg/dL High 74 - 99 [facility] Comment on above: Order Comment: 4 LPM NC Performed By: #### A FPA4 #### [address] [address] Hematocrit (Bld) [Volume fraction] 43.0 % Normal 41.0 - 52.0 [facility] Comment on above: Order Comment: 4 LPM NC Performed By: #### A FPA4 #### [address] [address] Hemoglobin (Bld) [Mass/Vol] 14.3 g/dL Normal 13.5 - 17.5 [facility] Comment on above: Order Comment: 4 LPM NC Performed By: #### A FPA4 #### [address] [address] Lactate [Moles/Vol] 1.0 mmol/L Normal 0.4 - 2.0 [facility] Comment on above: Order Comment: 4 LPM NC Performed By: #### A FPA4 #### [address] [address] OXY HGB 84.3 % Low 94.0 - 98.0 [facility] Comment on above: Order Comment: 4 LPM NC Performed By: #### A FPA4 #### [address] [address] Oxygen (Bld) [Partial pressure] 60 mm[Hg] Low 85 - 95 [facility] Comment on above: Order Comment: 4 LPM NC Performed By: #### A FPA4 #### [address] [address] PATIENT TEMPERATURE 37.0 degrees C Normal [facility] Comment on above: Order Comment: 4 LPM NC Result Comment: NOTE : PATIENT RESULTS ARE NOT CORRECTED FOR TEMPERATURE. Performed By: #### A FPA4 #### [address] [address] PCO2 68 mmHg High 38 - 42 [facility] Comment on above: Order Comment: 4 LPM NC Performed By: #### A FPA4 #### [address] [address] pH (Bld) 7.26 [pH] Low 7.38 - 7.42 [facility] Comment on above: Order Comment: 4 LPM NC Performed By: #### A FPA4 #### [address] [place] [address] Potassium [Moles/Vol] 4.0 mmol/L Normal 3.5 - 5.3 [facility] Comment on above: Order Comment: 4 LPM NC Performed By: #### A FPA4 #### [address] [place] [address] SO2 87 % Low 94 - 100 [facility] Comment on above: Order Comment: 4 LPM NC Performed By: #### A FPA4 #### [address] [address] Sodium [Moles/Vol] 141 mmol/L Normal 136 - 145 [facility] Comment on above: Order Comment: 4 LPM NC Performed By: #### A FPA4 #### [address] [place] [address] Anion gap [Moles/Vol] 6 mmol/L Low 10 - 25 [facility] Comment on above: Performed By: #### A FPA4 ####[address] [address] BASE EXCESS-BLOOD 6.9 mmol/L High -2.0 - 3.0 [facility] Comment on above: Performed By: #### A FPA4 ####[address] [address] BICARB, CALCULATED 32.0 mmol/L High 22.0 - 26.0 [facility] Comment on above: Performed By: #### A FPA4 ####[address] [address] CALCIUM,IONIZED 1.16 mmol/L Normal 1.10 - 1.33 [facility] Comment on above: Performed By: #### A FPA4 ####[address] [address] Chloride [Moles/Vol] 106 mmol/L Normal 98 - 107 [facility] Comment on above: Performed By: #### A FPA4 ####[address] [address] Glucose [Mass/Vol] 146 mg/dL High 74 - 99 [facility] Comment on above: Performed By: #### A FPA4 ####[address] [address] Hematocrit (Bld) [Volume fraction] 42.0 % Normal 41.0 - 52.0 [facility] Comment on above: Performed By: #### A FPA4 ####[address] [address] Hemoglobin (Bld) [Mass/Vol] 14.1 g/dL Normal 13.5 - 17.5 [facility] Comment on above: Performed By: #### A FPA4 ####[address] [address] Lactate [Moles/Vol] 1.2 mmol/L Normal 0.4 - 2.0 [facility] Comment on above: Performed By: #### A FPA4 ####[address] [address] OXY HGB 95.3 % Normal 94.0 - 98.0 [facility] Comment on above: Performed By: #### A FPA4 ####[address] [address] Oxygen (Bld) [Partial pressure] 84 mm[Hg] Low 85 - 95 [facility] Comment on above: Performed By: #### A FPA4 ####[address] [address] PATIENT TEMPERATURE 37.0 degrees C Normal [facility] [place] Comment on above: Result Comment: NOTE : PATIENT RESULTS ARE NOT CORRECTED FOR TEMPERATURE. Performed By: #### A FPA4 ####[address] [address] PCO2 46 mmHg High 38 - 42 [facility] Comment on above: Performed By: #### A FPA4 ####[address] [address] pH (Bld) 7.45 [pH] High 7.38 - 7.42 [facility] Comment on above: Performed By: #### A FPA4 ####[facility] [place] [address] [place] [address] Potassium [Moles/Vol] 3.4 mmol/L Low 3.5 - 5.3 [facility] Comment on above: Performed By: #### A FPA4 ####[facility] [place] [address] [place] [address] SO2 98 % Normal 94 - 100 [facility] Comment on above: Performed By: #### A FPA4 ####[address] [place] [address] Sodium [Moles/Vol] 141 mmol/L Normal 136 - 145 [facility] Comment on above: Performed By: #### A FPA4 ####[address] [place] [address] CBCon 02-06-2022 Erythrocyte distribution width (RBC) [Ratio] 19.0 % High 11.5 - 14.5 [facility] Comment on above: Performed By: #### C BC #### [address] [place] [address] Hematocrit (Bld) [Volume fraction] 42.4 % Normal 41.0 - 52.0 [facility] Comment on above: Performed By: #### C BC #### [address] [place] [address] Hemoglobin (Bld) [Mass/Vol] 13.5 g/dL Normal 13.5 - 17.5 [facility] Comment on above: Performed By: #### C BC #### [address] [place] [address] MCHC (RBC) [Mass/Vol] 31.8 g/dL Low 32.0 - 36.0 [facility] Comment on above: Performed By: #### C BC #### [address] [place] [address] MCV (RBC) [Entitic vol] 99 fL Normal 80 - 100 [facility] Comment on above: Performed By: #### C BC #### [address] [place] [address] NUCLEATED RBC 0.6 /100 WBC Normal 0.0 - 0.0 [facility] Comment on above: Performed By: #### C BC #### [address] [address] Platelets (Bld) [#/Vol] 137 10*3/uL Low 150 - 450 [facility] Comment on above: Performed By: #### C BC #### [address] [address] RBC 4.29 x10E12/L Low 4.50 - 5.90 [facility] Comment on above: Performed By: #### C BC #### [address] [address] WBC (Bld) [#/Vol] 6.9 10*3/uL Normal 4.4 - 11.3 [facility] Comment on above: Performed By: #### C BC #### [address] [address] Clinical Intervention - Ginna etienne 02-06-2022 Clinical Intervention - Pharmacy Pharmacist's Clinical Intervention: Is this intervention medication reconciliation related: yes, History Electronic Signatures: Andrés Bañuelos ([employer]) (Signed 06-Feb-2022 18:53) Authored: Pharmacist's Clinical Intervention Last Updated: 06-Feb-2022 18:53 by Andrés Bañuelos ([employer]) [facility] Consult-Critical Careon 12-0 Consult-Critical Care Service: Service: [...] MAP >70 (more content not included)... Normal [facility] Discharge [id number] Discharge Profile2 Discharge Orders: Anticipated Discharge Date: Anticipated Discharge [id number] Problem List: Admitting Dx: Renal cell carcinoma: Catalog Name: Malignant neoplasm of unspecified kidney, except renal pelvis Hospital Providers: Provider RoleProvider Name AmelieDavidle DNAR: Code Status at Discharge: Full Code [...] WORRISOME - NOTIFY YOUR PHYSICIAN OR RESIDENT ELECTRICAL EQUIPMENT TESTER. - Fever greater than 101 F or 38.3 C, chills, nausea, vomiting, or feeling ill. - Inability to urinate. - Drainage of foul smelling fluid (pus) from the incision or drain sites. - Excruciating pain that is not controlled by prescription or kblu-lne-nqfwcvy medications. - You were sent home on [...] appointments, please call our Main Office at [phone]. Provider FINAL REVIEW of Orders: Final Review: Final Review of Medication Reconciliation and Orders Completedby Physician Reviewing ProviderClau Diallo MD (Resident) at 06-Feb-2022 13:52:19 Appointments: Follow-Up Appointment 01: Physician/Dept/ServiceDr. Hernandez Reason for Referralpost op follow up Call to Schedule in2 weeks Phone [phone] CommentsPlease call to schedule appointment Follow-Up Appointment 02: Physician/Dept/[facility]Prt[facility] Reason for ReferralHospital follow up - blood pressure Call to Schedule in2-3 days CommentsPlease call to schedule Electronic Signatures: Gini Escalante (PLASTER MACHINE TENDER-[facility]) (Signed 10-Feb-2022 11:42) Authored: Discharge Orders, Appointments Clau Diallo ( (Resident)) (Signed 06-Feb-2022 13:52) Authored: Discharge Orders, Urology, Provider FINAL REVIEW of Orders, Gold Form - Mva Still Operator Summary Last Updated: 10-Feb-2022 11:42 by Gini Escalante (PLASTER MACHINE TENDER-[facility]) Normal [facility] GLUCOSE-POCTon 02-06-2022 Glucose [Mass/Vol] 133 mg/dL High 74 - 99 [facility] Comment on above: Performed By: #### G STEFANI #### [facility] [address] [place] [address] Order Reconciliationon 02-06 Order Reconciliation Page 1 Discharge Reconciliation Document Reconciliation Type: Discharge requested on behalf of Gini Escalante (Advanced Practice Nurse) done by Gini Escalante ([facility]) Discharge - Reconciliation: 06-Feb-2022 13:48 by: Clau Diallo ( (Resident)) Discharge - Reset to Incomplete: 09-Feb-2022 12:41 by: Gini Escalante ([facility]) Discharge - Partial Reconciliation: 09-Feb-2022 12:42 by: Gini Escalante ([facility]) Discharge - Partial Reconciliation: 10-Feb-2022 11:06 by: Luís Siegel (Resident)) Discharge - Partial Reconciliation: 10-Feb-2022 11:17 by: Luís Siegel (DO (Resident)) Discharge - Reconciliation: 10-Feb-2022 11:21 by: Gini Escalante (PLASTER MACHINE TENDER-[facility]) Home Medications EnteredHOME MEDICATIONS AT DISCHARGE [...] tablet 1 tab(s) orally once a day 06-Dec-2022 11:16 Discontinued; Discontinue from ORM spironolactone 25 [...] not requir (more content not included)... Normal [facility] Order Reconciliation Page 1 Admission Reconciliation Document Reconciliation Type: Admission from OR requested on behalf of Clau Diallo (Resident) done by Clau Diallo ( (Resident)) Admission from OR - Reconciliation: 06-Feb-2022 13:42 by: Clau Diallo ( (Resident)) Home MedicationsEnteredLast Dose TakenReconciled with current Order Reconciliation Comment/ Additional Information Cabometyx 20 mg oral tablet 1 tab(s) orally once a [id number] AM Reviewed and Held carvedilol 6.25 mg oral tablet 1 tab(s) orally once a [id number]-Feb-2022 AM Carvedilol - PEDS Tablet (COREG)DOSE = 6.25 mg Oral DailyCa.0543 mg/Kg/DOSE x 115 Kg = 6.25 mg/Dose (Daily Total is 6.25 mg) Weight type: Med Calc Weightcarvedilol 6.25 mg oral tablet continued as the inpatient order Carvedilol - PEDS cyclobenzaprine 10 mg oral tablet 1 tab(s) orally 3 times a [id number]-Feb-2022 AM Cyclobenzaprine Tablet (FLEXERIL)DOSE = 10 mg Oral 3 Times a Daycyclobenzaprine 10 mg oral tablet continued as the inpatient order Cyclobenzaprine ibuprofen 800 mg oral tablet 1 tab(s) orally 3 times a day, As Needed 2021 Reviewed and Held lovastatin 10 mg oral tablet 1 tab(s) orally once a [id number] Atorvastatin Tablet (LIPITOR)DOSE = 10 mg Oral At Bedtimelovastatin 10 mg oral tablet continued as the inpatient order Atorvastatin pantoprazole 40 mg oral delayed release tablet 1 tab(s) orally once a day [id number] Pantoprazole Enteric Coated Tablet (PROTONIX)DOSE = 40 mg Oral Dailypantoprazole 40 mg oral delayed release tablet continued as the inpatient order Pantoprazole spironolactone 25 mg oral tablet 1 tab(s) orally once a [id number]-Feb-2022 AM Spironolactone Tablet (ALDACTONE)DOSE = 25 mg Oral Daily spironolactone 25 mg oral tablet continued as the inpatient order Spironolactone warfarin 5 mg oral tablet 1 tab(s) orally once a [id number] Reviewed and Held Additional Current Orders Acetaminophen [...] micrograms r (more content not included)... Normal [facility] PT/INRon 02-06-2022 PT Coag (PPP) [Time] 14.3 s High 9.8 - 13.4 [facility] Comment on above: Performed By: #### P TINR ####[facility] [place] [address] PT, INR 1.2 High 0.9 - 1.1 [facility] Comment on above: Performed By: #### P TINR ####[facility] [place] [address] Patient Profile - Preop v3on 02-06-2022 Patient Profile - Preop v3 Patient Profile - Preop: Initial Info: Patient DemographicsName: YEFRI YANEZ Date: 1965 Address: [facility] [address], [facility] Primary Phone [phone] Instructions Givenanticoagulant meds - patient advised to consult ordering provider, appropriate clothing, bring glasses/contacts case, bring list of medications, center location, diabetes meds - patient advised to consult ordering provider, insurance information, remove jewerly/piercings How to be AddressedTHOMAS Spoken Language PreferredEnglish Source of Informationpatient Stated Reason for AdmissionREMOVAL OF RIGHT KIDNEY Primary Contact Name and Numbersonya [phone] Limitations on Visitors/Phone Callsnone Medications Brought to Hospitalno General Health: Weight in kg115 kilogram(s) Weight in iyg609.5 pound(s) Weight Methodstated Scale Typechair Height in feet5 feet Height in eplssr10 inch(es) Height in cm177.8 centimeter(s) Height Methodstated BMI (kg/m2)36.377 square meter Patient or Family Member Reaction to Anesthesianever had anesthesia Blood Avoidance/Restrictionsnon e Previous Transfusion Reactionnever had blood Health Mgmt: Symptoms/Conditions Managed at [facility] list Barriers to Managing Healthnone Relationship/Environ: Lives Withspouse Living Arrangementshouse Resource/Environmental Concernsnone [facility]ticipated [facility] [facility] Use: Tobacco Useyes Last Tobacco [id number] Tobacco CommentCIGARS, VAPING Pre-op Checklist: Arrival [id number] Arrival Time10:02 Procedure TypeRT LAPAROSCOPIC NEPHRECTOMY NPOyes Last Food [id number] 19:30 Last Clear Fluid [id number] 06:30 ID Band On Patientpatient ID (name), [...] Mushrooms: Food, Unknown, Active Electronic Signatures: Ivette Elizondo (RN) (Signed 06-Feb-2022 10:06) Authored: Initial Info, General Health, Health Mgmt, Relationship/Environ, Tobacco Use, Pre-op Checklist, Additional Information Last Updated: 06-Feb-2022 10:06 by Ivette Elizondo (JOHN) Normal [facility] RENAL FUNCTION PANELon 02-06 Albumin [Mass/Vol] 3.8 g/dL Normal 3.4 - 5.0 [facility] Comment on above: Performed By: #### C BC #### [address] [address] Anion gap [Moles/Vol] 10 mmol/L Normal 10 - 20 [facility] Comment on above: Performed By: #### C BC #### [address] [address] Calcium [Mass/Vol] 8.6 mg/dL Normal 8.6 - 10.3 [facility] Comment on above: Performed By: #### C BC #### [address] [address] Chloride [Moles/Vol] 106 mmol/L Normal 98 - 107 [facility] Comment on above: Performed By: #### C BC #### [address] [address] Creatinine [Mass/Vol] 1.38 mg/dL High 0.50 - 1.30 [facility] Comment on above: Performed By: #### C BC #### [address] [address] GFR/1.73 sq M.predicted among non-blacks MDRD (S/P/Bld) [Vol rate/Area] 59 mL/min/{1.73_m2} Abnormal >90 [facility] Comment on above: Result Comment: CALC ULATIONS OF ESTIMATED GFR ARE PERFORMED USING THE 2020 CKD-EPI STUDY REFIT EQUATION WITHOUT THE RACE VARIABLE FOR THE IDMS-TRACEABLE CREATININE METHODS. https://jasn.asnjournals.org/content/early//ASN.2020 870177 Performed By: #### C BC #### [address] [address] Glucose [Mass/Vol] 138 mg/dL High 74 - 99 [facility] Comment on above: Performed By: #### C BC #### [address] [address] HCO3 (Bld) [Moles/Vol] 31 mmol/L Normal 21 - 32 [facility] Comment on above: Performed By: #### C BC #### [address] [address] Phosphate [Mass/Vol] 4.9 mg/dL Normal 2.5 - 4.9 [facility] Comment on above: Result Comment: The performance characteristics of phosphorus testing in heparinized plasma have been validated by the individual laboratory site where testing is performed. Testing on heparinized plasma is not approved by the FDA; however, such approval is not necessary. Performed By: #### C BC #### [address] [address] Potassium [Moles/Vol] 4.0 mmol/L Normal 3.5 - 5.3 [facility] Comment on above: Performed By: #### C BC #### [address] [address] Sodium [Moles/Vol] 143 mmol/L Normal 136 - 145 [facility] Comment on above: Performed By: #### C BC #### [address] [address] Urea nitrogen [Mass/Vol] 23 mg/dL Normal 6 - 23 [facility] Comment on above: Performed By: #### C BC #### [address] [place] [address] TYPE + SCREENon 02-06-2022 ABO TYPE O Normal [facility] Comment on above: Performed By: #### T +S #### [address] [place] [address] RH TYPE Positive Normal [facility] Comment on above: Performed By: #### T +S #### [address] [place] [address] [facility] Surgical Pathology Depar tmenton 02-06-2022 [facility] Surgical Pathology Department Name YEFRI YANEZ Pathologist: CYNTHIA LOPEZ MD Date of Procedure: 02/06/2022 Date Received: 02/06/2022 Date Reported 02/19/2022 Submitting Physician: ARAVIND HERNANDEZ MD Location: [address] External # FINAL DIAGNOSIS A. KIDNEY, [...] glomerulosclerosis Vascular disease: Mild to moderate arteriosclerosis Change Release Manager Blocks: Normal Block: A8 Tumor Block: A3 Electronically Signed Out By CYNTHIA LOPEZ MD/KOKO By the signature on this report, the individual or group listed as making the Final Interpretation/Diagnosis certifies that they have reviewed this case. Diagnostic interpretation performed at [facility] [address] [place] [id number] Clinical History: renal cell carcinoma Specimens Submitted [...] nodes are found. Photographs have been taken. Change Release Manager sections are submitted in 8 cassettes. WXK/DJO Summary of Cassettes: Specimen Label Site A 1 ureter margin 2 vascular margins 3-4 mass in relation to lurdes-renal fat (A3 with tumor deposit in lurdes-renal fat) 5-6 mass in relation to lurdes-hilar fat 7 tumor with adjacent kidney parenchyma 8 normal kidney parenchyma djo/02/10/2022 [facility] Department of Pathology [address] [place] [id number] Normal [facility] Comment on above: Performed By: #### U [facility] #### [facility] Surgical Pathology Department [address] [facility] [address] CNPNon 02-05-2022 CNPN Normal [facility] CNPN Telephone (CARMOB) ----- YEFRI YANEZ ([id number]) 1965 [facility] Date Time Provider Department 02/05/22 SAYRA TELLO During your visit today, we recorded the following information about you: Abbey Prescott Nash 02/05/2022 12:41 PM Signed Patient's Miya left a voicemail stating that she has questions about the patient's upcoming appointment with Dr. Tello. Please call her at [phone]. Florian Mello RN 02/09/2022 2:26 PM Signed [...] Fully Assessed Reason for Visit: Patient Question [5225] Prescriptions as of 02/17/2022 - torsemide (DEMADEX) [...] by this patient by: SPOUSE Safia Carr, [facility] Problem List As Of Date 02/05/2022 Noted [...] Encounter Status:Closed by FLORIAN MELLO on 02/17/22 [facility] CORONAVIRUS 2019, SCREEN ASY MPTOMATICon 02-04-2022 SARS-CoV-2 (COVID-19) RNA SANDOVAL+probe Ql (Unsp spec) Not detected Normal Not Detected [facility] Comment on above: Result Comment: [...] this test method. Fact sheet for providers: https://www.fda.gov/media/253185/download Fact sheet for patients: https://www.fda.gov/media/565187/download This test has received [facility] Emergency Use Authorization (EUA) and has been verified for use by [facility] ([facility]). This test is only authorized for the duration of time that circumstances exist to justify the authorization of the emergency use of in vitro diagnostic tests for the detection of SARS-CoV-2 virus and/or diagnosis of COVID-19 infection under section 564(b)(1) of the Act, 21 U.S.C. 360bbb-3(b)(1), unless the authorization is terminated or revoked sooner. [facility] is certified under CLIA-88 as qualified to perform high complexity testing. Testing is performed in the [facility] laboratories located at [address] [place] [address]. Performed By: #### C OVSC #### [place] [address] Lab Specimen Source Nasal, Nasopharyngeal Normal [facility] Comment on above: Performed By: #### C OVSC #### [place] [address] Coronavirus 2019 RNA by PCR, Screening Asymptomticon 02-04-2022 Coronavirus 2019 RNA by PCR, Screening Asymptomtic Not detected Normal See Below KE-Utbffqu-O yamila SJW 400 DO Work Phone: Comment [...] this test method. Fact sheet for providers: https://www.fda.gov/media/133750/download Fact sheet for patients: https://www.fda.gov/media/286159/download This test has received FDA Emergency Use Authorization (EUA) and has been verified for use by [facility] ([facility]). This test is only authorized for the duration of time that circumstances exist to justify the authorization of the emergency use of in vitro diagnostic tests for the detection of SARS-CoV-2 virus and/or diagnosis of COVID-19 infection under section 564(b)(1) of the Act, 21 U.S.C. 360bbb-3(b)(1), unless the authorization is terminated or revoked sooner.[facility] is certified under CLIA-88 as qualified to perform high complexity testing. Testing is performed in the [facility] laboratories located at [address] [place] [address]. Covid 19 Resultson 2 SARS-CoV-2 (COVID-19) RNA [...] be contacted by the [facility] to see if any of your close [...] or Naproxen (Aleve) can also be used. Axni-fud-mmznndk cough and cold medicines can be used according to the instructions on the package. Some avun-vye-rmgjnlm medicines also contain acetaminophen. Make sure you [...] water are not available, use alcohol-based hand forming department end finder. Avoid touching your eyes, nose, and mouth [...] 24 felisa (more content not included)... Normal [facility] Chart Updateon 02-03-2022 Chart Update [...] [facility], referred to me for nephrectomy. 01/19/2022-patient scheduled for laparoscopic nephrectomy 02/0301/20/2022-patient presented to [facility] with shortness of breath 01/27/2022-patient presented to [facility] with persistence of subjective dyspnea, expiratory wheezing 01/29/2022-patient represented to [facility] ED with chest tightness and shortness of [...] with radiation therapy. Plan previously developed at [facility] was 4 local treatment to masses followed [...] Feb 03 2022 8:52AM EST (Author) Normal [employer] [facility] [employer] Absolute lymphocyte countOrd ered By: Dr. Bass on 01-29-2022 Lymphocytes Auto (Unsp spec) [#/Vol] 0.78 10*3/uL 0.83-4.51 [facility] Basophil percentageOrdered B y: Dr. Bass on 01-29-2022 Basophils/100 WBC (Bld) 0.3 % 0-1 [facility] Chloride [Moles/Vol] 102 mmol/L 98-107 [facility] Eosinophils/100 WBC (Bld) 0.1 % 0-5 [facility] Glucose [Mass/Vol] 148 mg/dL 74-106 [facility] Comment on above: Fasting Glucose resu lt greater than or equal to 126 mg/dL suggests DIABETES MELLITUS per A.D.A. criteria. Neutrophils (Bld) [#/Vol] 8.6 10*3/uL 2.0-7.7 [facility] Neutrophils/100 WBC (Bld) 85.8 % 47-70 [facility] Potassium [Moles/Vol] 3.5 mmol/L 3.5-5.1 [facility] Comment on above: Slight Hemolysis, Re sult may be falsely increased. Sodium [Moles/Vol] 142 mmol/L 136-145 [facility] WBC (Bld) [#/Vol] 10.0 10*3/uL 4.4-11.0 [facility] Blood erythrocytes count (nu mber/volume)Ordered By: Dr. Bass on 01-29-2022 RBC (Bld) [#/Vol] 4.81 10*6/uL 4.6-6.2 [facility] Blood hemoglobin measurement (mass/volume)Ordered By: Dr. Bass on 01-29-2022 Hemoglobin (Bld) [Mass/Vol] 15.0 g/dL 13.0-16.5 [facility] Blood lymphocytes/100 leukoc ytesOrdered By: Dr. Bass on 01-29-2022 Lymphocytes/100 WBC (Bld) 7.8 % 19-41 [facility] Blood monocytes/100 leukocyt esOrdered By: Dr. Bass on 01-29-2022 Monocytes/100 WBC (Bld) 4.3 % 0-10 [facility] Blood platelet mean volumeOr dered By: Dr. Bass on 01-29-2022 Platelet mean volume (Bld) [Entitic vol] 10.9 fL 6.2-12.0 [facility] Determination of erythrocyte mean corpuscular volume (MCV)Ordered By: Dr. Bass on 01-29-2022 MCV (RBC) [Entitic vol] 94.2 fL 80-94 [facility] Hematocrit Auto (Bld) [Volum e fraction]Ordered By: Dr. Bass on 01-29-2022 Hematocrit (Bld) [Volume fraction] 45.3 % 40-54 [facility] INR in Blood by Coagulation assayOrdered By: Dr. Bass on 01-29-2022 INR Coag (Bld) [Relative time] 1.2 {INR} [facility] Influenza virus A and B and SARS-CoV-2 (COVID-19) Ag panel - Upper respiratory specimOrdered By: Dr. Bass on 01-29-2022 SARS-CoV-2 (COVID-19) RNA SANDOVAL+probe Ql (Resp) [facility] Laboratory - Chemistry and C hemistry - challengeOrdered By: Dr. Bass on 01-29-2022 CO2 [Moles/Vol] 36.0 mmol/L 21.0-32.0 [facility] Natriuretic peptide B (Bld) [Mass/Vol] 378.8 pg/mL 0-100 [facility] Urea nitrogen/Creatinine [Mass ratio] 17.4 mg/mg 10-20 [facility] Laboratory - CoagulationOrde red By: Dr. Bass on 01-29-2022 PT Coag (PPP) [Time] 15.3 s 11.7-14.9 [facility] Laboratory - Hematology and Cell countsOrdered By: Dr. Bass on 01-29-2022 Erythrocyte distribution width (RBC) [Entitic vol] 55.1 fL 35.1-43.9 [facility] Erythrocyte distribution width (RBC) [Ratio] 16.4 % 11.6-14.6 [facility] Immature granulocytes/100 WBC (Bld) 1.700 % 0.0-0.9 [facility] Comment on above: IG% - Immature Granu locytes (promyelocytes, myelocytes and metamyelocytes) > 1% indicates that a LEFT SHIFT is Present. MCH (RBC) [Entitic mass] 31.2 pg 27.0-32.0 [facility] Nucleated RBC/100 WBC (Bld) [Ratio] 1.2 % 0-5 [facility] MCHC Auto (RBC) [Mass/Vol]Or dered By: Dr. Bass on 01-29-2022 MCHC (RBC) [Mass/Vol] 33.1 g/dL 32-36 [facility] No Panel InformationOrdered By: Dr. Bass on 01-29-2022 Estimated Creatinine Clearance Calc 76.27 ml/min [facility] Estimated GFR (MDRD) Amer 89 mL/min >60 [facility] Comment on above: GFR Calc Estimated GFR (MDRD) Non-Af Amer 74 mL/min >60 [facility] Comment on above: Non- GFR Calc Troponin I High Sensitivity 69 pg/mL 3.0-78.0 [facility] Comment on above: Please Note: New Indy t Units and Gender Specific Reference Ranges. For more information see Policy Stat Procedure [place] High Sensitivity Troponin (TNIH) and attachments. Platelets bldOrdered By: Dr. Bass on 01-29-2022 Platelets (Bld) [#/Vol] 166 10*3/uL 150-450 [facility] Serum or plasma calcium cory urement (mass/volume)Ordered By: Dr. Bass on 01-29-2022 Calcium [Mass/Vol] 9.0 mg/dL 8.5-10.1 [facility] Serum or plasma creatinine m easurement (mass/volume)Ordered By: Dr. Bass on 01-29-2022 Creatinine [Mass/Vol] 1.09 mg/dL 0.70-1.30 [facility] Comment on above: The validity of the calculated GFR & GFRAA in patients over 70 years has not been determined. Clinical correlation is essential. Serum or plasma urea nitroge n measurement (mass/volume)Ordered By: Dr. Bass on 01-29-2022 Urea nitrogen [Mass/Vol] 19 mg/dL 7-18 [facility] Thin prep Papanicolaou smear with manual screeningOrdered By: Dr. Bass on 01-29-2022 Thin prep Papanicolaou smear with manual screening 4 5-15 [facility] Cult, Urineon 01-27-2022 Bacteria identified Cx Nom (U) QJ-Dawcrqn-F [employer] 400 DO Work Phone: Laboratory - Blood bankon ABO group Nom (Bld) O MP-Ur ology-W [employer] 400 DO Work Phone: Blood group antibody screen Ql Negative YF-Zlkrdhx-T [employer] 400 DO Work Phone: Rh immune globulin screen (Bld) [Interp] Positive MP-Urology -W [employer] 400 DO Work Phone: TYPE + SCREENon 01-27-2022 ABO TYPE O Normal [facility] Comment on above: Performed By: #### C BC #### [address] [place] [address] RH TYPE Positive Normal [facility] Comment on above: Performed By: #### C BC #### [address] [place] [address] URINE CULTURE,BACTERIALon URINE CULTURE,BACTERIAL PATIENT: YEFRI BREEN LOCATION: [facility]#: [id number] : 63 AGE: SEX: M ORDERED BY: ARAVIND HERNANDEZ SOURCE: URINE COLLECTED: 01/27/22 11:26 ANTIBIOTICS AT JASMIN.: RECEIVED : 01/27/22 19:27 SITE: R E S U L T S URINE CULTURE,BACTERIAL FINAL 01/28/22 12:54 NO SIGNIFICANT GROWTH. Normal [facility] Comment on above: Performed By: #### C BC #### [address] [address] CNPTOUTREACHon 01-23-2022 CNPTOUTREACH Normal [facility] Absolute lymphocyte countOrd ered By: Dr. Carvajal on 01-20-2022 Lymphocytes Auto (Unsp spec) [#/Vol] 1.04 10*3/uL 0.83-4.51 [facility] Basophil percentageOrdered B y: Dr. Carvajal on 01-20-2022 Basophils/100 WBC (Bld) 0.4 % 0-1 [facility] Chloride [Moles/Vol] 104 mmol/L 98-107 [facility] Eosinophils/100 WBC (Bld) 1.3 % 0-5 [facility] Glucose [Mass/Vol] 113 mg/dL 74-106 [facility] Comment on above: Fasting Glucose resu lt from 100 to 125 mg/dL suggests IMPAIRED HOMEOSTASIS per A.D.A. criteria. Neutrophils (Bld) [#/Vol] 3.0 10*3/uL 2.0-7.7 [facility] Neutrophils/100 WBC (Bld) 66.2 % 47-70 [facility] Potassium [Moles/Vol] 3.5 mmol/L 3.5-5.1 [facility] Comment on above: Moderate Hemolysis, Result may be falsely increased. Sodium [Moles/Vol] 142 mmol/L 136-145 [facility] WBC (Bld) [#/Vol] 4.5 10*3/uL 4.4-11.0 [facility] Blood erythrocytes count (nu mber/volume)Ordered By: Dr. Carvajal on 01-20-2022 RBC (Bld) [#/Vol] 5.09 10*6/uL 4.6-6.2 [facility] Blood hemoglobin measurement (mass/volume)Ordered By: Dr. Carvajal on 01-20-2022 Hemoglobin (Bld) [Mass/Vol] 15.6 g/dL 13.0-16.5 [facility] Blood lymphocytes/100 leukoc ytesOrdered By: Dr. Carvajal on 01-20-2022 Lymphocytes/100 WBC (Bld) 23.2 % 19-41 [facility] Blood monocytes/100 leukocyt esOrdered By: Dr. Carvajal on 01-20-2022 Monocytes/100 WBC (Bld) 8.5 % 0-10 [facility] Blood platelet mean volumeOr dered By: Dr. Carvajal on 01-20-2022 Platelet mean volume (Bld) [Entitic vol] 10.2 fL 6.2-12.0 [facility] Determination of erythrocyte mean corpuscular volume (MCV)Ordered By: Dr. Carvajal on 01-20-2022 MCV (RBC) [Entitic vol] 91.2 fL 80-94 [facility] EKGon 01-20-2022 Atrial Rate 127 BPM [facility] Calculated R [place] 80 degrees [facility] Calculated T [place] 77 degrees [facility] QRS Duration 102 ms [facility] QT Interval 366 ms [facility] QTC Calculation (Bazett) 459 ms [facility] Ventricular Rate [address] [facility] Atrial fibrillation Abnormal ECG No previous ECGs available Confirmed by RAINER PRINGLE MD ([id number]) on 01/20/2022 8:35:54 AM [facility] NAME : MIREYA YANEZ PID : [id number] : 1965 Gender : Male Race : ORD : Procedure Date : Jan 19 2022 11:29:03 Edit Date : Jan 20 2022 08:35:56 Diagnosis: Atrial fibrillation Abnormal ECG No previous ECGs available Confirmed by RAINER PRINGLE MD ([id number]) on 01/20/2022 8:35:54 AM Test Reason : RT Location : 18 : [facility] Overread By : RAINER PRINGLE MD Edited By : RAINER PRINGLE MD Referred By : KITTY VALDEZ Acquired by : MARCELINO CRAIN [facility] Hematocrit Auto (Bld) [Volum e fraction]Ordered By: Dr. Carvajal on 01-20-2022 Hematocrit (Bld) [Volume fraction] 46.4 % 40-54 [facility] INR in Blood by Coagulation assayOrdered By: Dr. Carvajal on 01-20-2022 INR Coag (Bld) [Relative time] 1.5 {INR} [facility] Influenza virus A and B and SARS-CoV-2 (COVID-19) Ag panel - Upper respiratory specimOrdered By: Dr. Carvajal on 01-20-2022 SARS-CoV-2 (COVID-19) RNA SANDOVAL+probe Ql (Resp) [facility] Laboratory - Chemistry and C hemistry - challengeOrdered By: Dr. Carvajal on 01-20-2022 CO2 [Moles/Vol] 30.0 mmol/L 21.0-32.0 [facility] Natriuretic peptide B (Bld) [Mass/Vol] 272.4 pg/mL 0-100 [facility] Urea nitrogen/Creatinine [Mass ratio] 12.7 mg/mg 10-20 [facility] Laboratory - CoagulationOrde red By: Dr. Carvajal on 01-20-2022 PT Coag (PPP) [Time] 17.4 s 11.7-14.9 [facility] Laboratory - Hematology and Cell countsOrdered By: Dr. Carvajal on 01-20-2022 Erythrocyte distribution width (RBC) [Entitic vol] 52.1 fL 35.1-43.9 [facility] Erythrocyte distribution width (RBC) [Ratio] 15.9 % 11.6-14.6 [facility] Immature granulocytes/100 WBC (Bld) 0.400 % 0.0-0.9 [facility] Comment on above: IG% - Immature Granu locytes (promyelocytes, myelocytes and metamyelocytes) > 1% indicates that a LEFT SHIFT is Present. MCH (RBC) [Entitic mass] 30.6 pg 27.0-32.0 [facility] Nucleated RBC/100 WBC (Bld) [Ratio] 0 % 0-5 [facility] MCHC Auto (RBC) [Mass/Vol]Or dered By: Dr. Carvajal on 01-20-2022 MCHC (RBC) [Mass/Vol] 33.6 g/dL 32-36 [facility] No Panel InformationOrdered By: Dr. Carvajal on 01-20-2022 Estimated Creatinine Clearance Calc 75.58 ml/min [facility] Estimated GFR (MDRD) Amer 88 mL/min >60 [facility] Comment on above: GFR Calc Estimated GFR (MDRD) Non-Af Amer 73 mL/min >60 [facility] Comment on above: Non- GFR Calc Troponin I High Sensitivity 58 pg/mL 3.0-78.0 [facility] Comment on above: Please Note: New [place] t Units and Gender Specific Reference Ranges. For more information see Policy Stat Procedure [place] High Sensitivity Troponin (TNIH) and attachments. Platelets bldOrdered By: Dr. Carvajal on 01-20-2022 Platelets (Bld) [#/Vol] 180 10*3/uL 150-450 [facility] Serum or plasma calcium cory urement (mass/volume)Ordered By: Dr. Carvajal on 01-20-2022 Calcium [Mass/Vol] 8.8 mg/dL 8.5-10.1 [facility] Serum or plasma creatinine m easurement (mass/volume)Ordered By: Dr. Carvajal on 01-20-2022 Creatinine [Mass/Vol] 1.10 mg/dL 0.70-1.30 [facility] Comment on above: The validity of the calculated GFR & GFRAA in patients over 70 years has not been determined. Clinical correlation is essential. Serum or plasma urea nitroge n measurement (mass/volume)Ordered By: Dr. Carvajal on 01-20-2022 Urea nitrogen [Mass/Vol] 14 mg/dL 7-18 [facility] Thin prep Papanicolaou smear with manual screeningOrdered By: Dr. Carvajal on 01-20-2022 Thin prep Papanicolaou smear with manual screening 8 07-20 [facility] CNCOon 01-19-2022 CNCO Letter Text Normal [facility] EKGon 01-19-2022 Electrocardiogram Ventricular Rate : 9 5 BPM Atrial Rate : 127 BPM QRS Duration : 102 ms Q-T Interval : 366 ms QTC Calculation(Bazett) : 459 ms Calculated R [place] : 80 degrees Calculated T [place] : 77 degrees Atrial fibrillation Abnormal ECG No previous ECGs available Confirmed by RAINER PRINGLE MD ([id number]) on 01/20/2022 8:35:54 AM NAME : YEFRI YANEZ PID : [id number] : 1965 Gender : Male Race : ORD : Procedure Date : Jan 19 2022 11:29:03 Edit Date : Jan 20 2022 08:35:56 Diagnosis: Atrial fibrillation Abnormal ECG No previous ECGs available Confirmed by RAINER PRINGLE MD ([id number]) on 01/20/2022 8:35:54 AM Test Reason : RT Location : 18 : [facility] Overread By : RAINER PRINGLE MD Edited By : RAINER PRINGLE MD Referred By : KITTY VALDEZ Acquired by : MARCELINO CRAIN [facility] XR CHEST 2V FRONTAL/LATon XR CHEST 2V [...] Right chest wall mass is grossly stable. Fast Food Supervisor: DANITZA Transcribe Date/Time: Nov 14 2022 11:14A Dictated by : LUMA SHANKS MD This examination was interpreted and the report reviewed and electronically signed by: LUMA SHANKS MD on Jan 19 2022 11:15AM EST [id number] [facility] [facility] ----- YEFRI YANEZ ([id number]) 1965 [facility] Date Time Provider Department 12/25/21 MIKAL MORRIS During your visit today, we recorded the following information about you: Abbey Nash 12/25/2021 7:45 AM Signed 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 Patient's insurance changed was seen at [facility] but now that location is out of network. Patient was told by insurance he could be seen at this location. Patient's records are in epic. Adrienne Beach 12/25/2021 2:30 PM Signed Tricia Abraham for PT offering him an appointment with [...] by this patient by: SPOUSE Safia Carr [facility] Problem List As Of Date 12/25/2021 Noted [...] Encounter Status:Closed by ADRIENNE BEACH on 12/25/21 [facility] Absolute lymphocyte counton 12-09-2021 Lymphocytes Auto (Unsp spec) [#/Vol] 1.42 10*3/uL 0.83-4.51 [facility] Work Phone: Basophil percentageon 2021 Basophil percentage 3.9 mg/dL 2.5-4.9 [facility]: Basophils/100 WBC (Bld) 0.5 % 0-1 [facility] Work Phone: Chloride [Moles/Vol] 109 mmol/L 98-107 [facility] Work Phone: Eosinophils/100 WBC (Bld) 1.5 % 0-5 [facility] Work Phone: Glucose [Mass/Vol] 121 mg/dL 74-106 [facility] Work [facility]: Comment on above: Fasting Glucose resu lt from 100 to 125 mg/dL suggests IMPAIRED HOMEOSTASIS per A.D.A. criteria. Neutrophils (Bld) [#/Vol] 4.0 10*3/uL 2.0-7.7 [facility] Work Phone: Neutrophils/100 WBC (Bld) 67.8 % 47-70 [facility] Work Phone: Potassium [Moles/Vol] 3.8 mmol/L 3.5-5.1 [facility] [facility] Work Phone: [phone] Sodium [Moles/Vol] 142 mmol/L 136-145 [facility] Work Phone: [phone] WBC (Bld) [#/Vol] 5.9 10*3/uL 4.4-11.0 [facility] Work Phone: Blood erythrocytes count (nu mber/volume)on 12-09-2021 RBC (Bld) [#/Vol] 5.22 10*6/uL 4.6-6.2 [facility] Work Phone: [phone] Blood hemoglobin measurement (mass/volume)on 12-09-2021 Hemoglobin (Bld) [Mass/Vol] 16.0 g/dL 13.0-16.5 [facility] Work Phone: Blood lymphocytes/100 leukoc yteson 12-09-2021 Lymphocytes/100 WBC (Bld) 24.1 % 19-41 [facility] Work Phone: Blood monocytes/100 leukocyt eson 12-09-2021 Monocytes/100 WBC (Bld) 5.8 % 0-10 [facility] Work Phone: [phone] Blood platelet mean volumeon 12-09-2021 Platelet mean volume (Bld) [Entitic vol] 11.1 fL 6.2-12.0 [facility] Work Phone: CNOVon 12-09-2021 CNOV Office Visit (MEMEC )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 SPECIMENOrdering Facility: [facility] Address: [address] [place] [address] Performed By: #### 2 4323-8, 3016-3 ####[facility] LABCLIA [id number] [place] [address] [place] ECG COMPLETEon 10-27-2021 ECG COMPLETE Normal [facility] HISTORY PHYSICALon 2 HISTORY PHYSICAL Normal [facility] PT panel Coag (PPP)on 2021 INR Coag (PPP) [Relative time] 2.2 {INR} High 0.9-1.3 [facility] Comment on above: Order Comment: Aaliyah gibson Type: BLOOD SPECIMENOrdering Facility: [facility] Address: [address] [place] [address] Result Comment: Constanza min K Antagonist (VKA) Therapeutic Range: INR 2 to 3 (Target INR of 2.5)Note: For patients treated with VKA drugs, such as warfarin, the [place] [employer] 2012 Guideline recommends [...] 70: 252-289 Performed By: #### 3 4528-0, 20880-7 ####[facility] LABCLIA [id number] [place] [address] [place] PT Coag (PPP) [Time] 22.4 s High 9.7-13.0 [facility] Comment on above: Order Comment: Speci men Type: BLOOD SPECIMENOrdering Facility: [facility] Address: [address] [place] [address] Performed By: #### 3 4528-0, 07121-8 ####[facility] LABCLIA [id number] [address] OF [facility] TSH SerPl-aCncon 10-27-2021 TSH Qn 1.530 m[IU]/L Normal 0.270-4.20 0 [facility] Comment on above: Order Comment: Speci men Type: BLOOD SPECIMENOrdering Facility: [facility] Address: [address] [place] [address] Performed By: #### 2 4323-8, 3016-3 ####[facility] LABCLIA [id number] [address] OF [facility] TYPE AND SCREEN,30 DAYon ABO O Normal [facility] Comment on above: Order Comment: Speci men Type: BLOOD SPECIMENOrdering Facility: [facility] Address: [address] [place] [address] Performed By: #### T SCR30 ####[facility] BLOOD BANKCLIA [id number] [address] [place] HISTORICAL AB SCR STATUS Negative Normal [facility] Comment on above: Order Comment: Speci men Type: BLOOD SPECIMENOrdering Facility: [facility] Address: [address] [place] [address] Performed By: #### T SCR30 ####[facility] BLOOD BANKCLIA [id number] [address] OF [place] Rh Nom (Bld) Positive Normal [facility] Comment on above: Order Comment: Speci men Type: BLOOD SPECIMENOrdering Facility: [facility] Address: [address] [place], [place] [address] Performed By: #### T SCR30 ####[facility] BLOOD BANKCLIA [id number] [address] aPTT PPPon 10-27-2021 aPTT Coag (PPP) [Time] 35.8 s High 23.0-32.4 [facility] Comment on above: Order Comment: Speci men Type: BLOOD SPECIMENOrdering Facility: [facility] Address: [address] [address] Performed By: #### 3 4528-0, 97883-0 ####[facility] LABCLIA [id number] [address] CNPNon 10-21-2021 CNPN Telephone ([facility]) ----- YEFRI YANEZ ([id number]) 1965 M [facility] Date Time Provider Department 10/21/21 HAYLEE WILBURN [facility] During your visit today, we recorded the [...] by this patient by: SPOUSE Safia Carr [facility] Problem List As Of Date 10/21/2021 Noted [...] Encounter Status:Closed by AMERICA SCHWARTZ on 10/21/21 [facility] CNOVSPon 10-20-2021 CNOVSP Visit (SP) Office ([facility]) ----- YEFRI YANEZ ([id number]) 1965 M [facility] Date Time Provider Department 10/20/21 2:30 PM HAYLEE WILBURN [facility] During your visit today, we recorded the following information about you: Pulse Respiration Blood pressure Weight 60/minute 16/minute 130/78 115.2 kg Height 1.854 m Haylee Wilburn MD 10/21/2021 9:38 AM Signed [facility] Oncology Consult Note SERVICE DATE: October 20, 2021 CHIEF COMPLAINT: Yefri Yip Renata is a 56 year old male referred [...] started treatment with cabo + nivo on [facility] 1820 on 08/08/2021. He has baseline HTN and developed worsening HTN after starting treatment. His cabo was held on 08/18/2021, resumed on 09/11/2021. The Nivo was held on 09/11/21 due to pneumonitis, and prednisone 60 mg daily was started and tapered off one week ago. Due to insurance change, he was taken off the trial and referred to [facility] to resume the treatment. He is [...] Never Tobacco comments (more content not included)... [facility] CNCOon 10-16-2021 CNCO Letter Text [facility] CNPhSy 10-16-2021 CNPN [facility] CNPNon 10-14-2021 CNPN [facility] CBC W Auto Differential pane l (Bld)on 10-09-2021 Basophils (Bld) [#/Vol] 10*3/uL Normal <0.11 [facility] Comment on above: Order Comment: Speci men Type: BLOOD SPECIMENOrdering Facility: [facility] Address: [address] [place], [place] [address] Performed By: #### 5 7021-8 ####[facility] [place] [id number] [place] [address] [place] Basophils/100 WBC (Bld) 0.3 % Normal C [facility] Comment on above: Order Comment: Speci men Type: BLOOD SPECIMENOrdering Facility: [facility] Address: [address] [place] [address] Performed By: #### 5 7021-8 ####[facility] [id number] [place] [address] [place] Differential cell count method Nom (Bld) Auto Normal [facility] Comment on above: Order Comment: Speci men Type: BLOOD SPECIMENOrdering Facility: [facility] Address: [address] [place], [place] [address] Performed By: #### 5 7021-8 ####[facility] [id number] [place] [address] [place] Eosinophils (Bld) [#/Vol] 0.03 10*3/uL Normal <0.46 [facility] Comment on above: Order Comment: Speci men Type: BLOOD SPECIMENOrdering Facility: [facility] Address: [address] [place], [place] [address] Performed By: #### 5 7021-8 ####[facility] [place] [id number] [place] [address] Eosinophils/100 WBC (Bld) 0.4 % Normal [facility] Comment on above: Order Comment: Speci men Type: BLOOD SPECIMENOrdering Facility: [facility] Address: [address] [place], [place] [address] Performed By: #### 5 7021-8 ####[facility] [id number] [place] [address] [place] Erythrocyte distribution width (RBC) [Ratio] 17.2 % High 11.5-15.0 [facility] Comment on above: Order Comment: Speci men Type: BLOOD SPECIMENOrdering Facility: [facility] Address: [address] [place] [address] Performed By: #### 5 7021-8 ####[facility] [id number] [place] [address] [place] Hematocrit (Bld) [Volume fraction] 46.8 % Normal 39.0-51.0 [facility] Comment on above: Order Comment: Speci men Type: BLOOD SPECIMENOrdering Facility: [facility] Address: [address] [place] [address] Performed By: #### 5 7021-8 ####[facility] [place] [facility] [id number] [place] [address] [place] Hemoglobin (Bld) [Mass/Vol] 15.5 g/dL Normal 13.0-17.0 [facility] Comment on above: Order Comment: Speci men Type: BLOOD SPECIMENOrdering Facility: [facility] Address: [address] [place] [address] Performed By: #### 5 7021-8 ####[facility] [facility] [id number] [place] [address] OF [facility] IMMATURE GRAN % 0.8 % Normal [facility] Comment on above: Order Comment: Speci men Type: BLOOD SPECIMENOrdering Facility: [facility] Address: [address] [place] [address] Performed By: #### 5 7021-8 ####[facility] [id number] [place] [address] [place] IMMATURE GRAN ABS 0.06 k/uL Normal <0.10 [facility] Comment on above: Order Comment: Speci men Type: BLOOD SPECIMENOrdering Facility: [facility] Address: [address] [place], [place] [address] Performed By: #### 5 7021-8 ####[facility] [id number] [place] [address] [place] Lymphocytes (Bld) [#/Vol] 2.33 10*3/uL Normal 1.00-4.00 [facility] Comment on above: Order Comment: Speci men Type: BLOOD SPECIMENOrdering Facility: [facility] Address: [address] [place] [address] Performed By: #### 5 7021-8 ####[facility] [place] [facility] [id number] [place] [address] [place] Lymphocytes/100 WBC (Bld) 32.3 % Normal [facility] Comment on above: Order Comment: Speci men Type: BLOOD SPECIMENOrdering Facility: [facility] Address: [address] [place] [address] Performed By: #### 5 7021-8 ####[facility] [place] [facility] [id number] [place] [address] [place] MCH (RBC) [Entitic mass] 30.2 pg Normal 26.0-34.0 [facility] Comment on above: Order Comment: Speci men Type: BLOOD SPECIMENOrdering Facility: [facility] Address: [address] [place], [place] [address] Performed By: #### 5 7021-8 ####[facility] [id number] [place] [address] [place] MCHC (RBC) [Mass/Vol] 33.1 g/dL Normal 30.5-36.0 [facility] Comment on above: Order Comment: Speci men Type: BLOOD SPECIMENOrdering Facility: [facility] Address: [address] [place], [place] [address] Performed By: #### 5 7021-8 ####[facility] [id number] [place] [address] [place] MCV (RBC) [Entitic vol] 91.2 fL Normal 80.0-100.0 C [facility] Comment on above: Order Comment: Speci men Type: BLOOD SPECIMENOrdering Facility: [facility] Address: [address] [place], [place] [address] Performed By: #### 5 7021-8 ####[facility] [id number] [place] [address] [place] Monocytes (Bld) [#/Vol] 0.35 10*3/uL Normal <0.87 [facility] Comment on above: Order Comment: Speci men Type: BLOOD SPECIMENOrdering Facility: [facility] Address: [address] [place], [place] [address] Performed By: #### 5 7021-8 ####[facility] [place] [facility] [id number] [place] [address] [place] Monocytes/100 WBC (Bld) 4.8 % Normal C [facility] Comment on above: Order Comment: Speci men Type: BLOOD SPECIMENOrdering Facility: [facility] Address: [address] [place], [place] [address] Performed By: #### 5 7021-8 ####[facility] [id number] [place] [address] [place] Neutrophils (Bld) [#/Vol] 4.43 10*3/uL Normal 1.45-7.50 [facility] Comment on above: Order Comment: Speci men Type: BLOOD SPECIMENOrdering Facility: [facility] Address: [address] [place], [place] [address] Performed By: #### 5 7021-8 ####[facility] [id number] [place] Neutrophils/100 WBC (Bld) 61.4 % Normal [facility] Comment on above: Order Comment: Speci men Type: BLOOD SPECIMENOrdering Facility: [facility] Address: [address] [place] [address] Performed By: #### 5 7021-8 ####[facility] [id number] [place] [address] [place] Nucleated RBC (Bld) [#/Vol] 10*3/uL Normal <0.01 [facility] Comment on above: Order Comment: Speci men Type: BLOOD SPECIMENOrdering Facility: [facility] Address: [address] [place], [place] [address] Performed By: #### 5 7021-8 ####[facility] [id number] [place] [address] [place] Nucleated RBC/100 WBC (Bld) [Ratio] 0.0 /100 WBC Normal [facility] Comment on above: Order Comment: Speci men Type: BLOOD SPECIMENOrdering Facility: [facility] Address: [address] [place], [place] [address] Performed By: #### 5 7021-8 ####[facility] [id number] [place] [address] [place] Platelet mean volume (Bld) [Entitic vol] 9.1 fL Normal 9.0-12.7 [facility] Comment on above: Order Comment: Speci men Type: BLOOD SPECIMENOrdering Facility: [facility] Address: [address] [place], [place] [address] Performed By: #### 5 7021-8 ####[facility] [id number] [place] [address] [place] Platelets (Bld) [#/Vol] 243 10*3/uL Normal 150-400 [facility] Comment on above: Order Comment: Speci men Type: BLOOD SPECIMENOrdering Facility: [facility] Address: [address] [place], [place] [address] Performed By: #### 5 7021-8 ####[facility] [id number] [place] [address] [place] RBC (Bld) [#/Vol] 5.13 10*6/uL Normal 4.20-6.00 [facility] Comment on above: Order Comment: Speci men Type: BLOOD SPECIMENOrdering Facility: [facility] Address: [address] [place], [place] [address] Performed By: #### 5 7021-8 ####[facility] [id number] [place] [address] [place] WBC (Bld) [#/Vol] 7.22 10*3/uL Normal 3.70-11.00 [facility] Comment on above: Order Comment: Speci men Type: BLOOD SPECIMENOrdering Facility: [facility] Address: [address] [place], [place] [address] Performed By: #### 5 7021-8 ####[facility] [id number] [place] [address] [place] CNNURSEon 10-09-2021 CNNURSE Normal [facility] CNOVSPon 10-09-2021 CNOVSP Normal [facility] Comprehensive metabolic 2000 panelon 10-09-2021 Albumin [Mass/Vol] 4.0 g/dL Normal 3.9-4.9 [facility] Comment on above: Order Comment: Speci men Type: BLOOD SPECIMENOrdering Facility: [facility] Address: [address] [place] [address] Performed By: #### 2 4323-8, 3084-1, 65734-1 ####[facility] [id number] [place] [address] [place] ALP [Catalytic activity/Vol] 89 U/L Normal 38-113 [facility] Comment on above: Order Comment: Speci men Type: BLOOD SPECIMENOrdering Facility: [facility] Address: [address] [place], [place] [address] Performed By: #### 2 4323-8, 308-1, ####[facility] [id number] [place] [address] [place] ALT [Catalytic activity/Vol] 50 U/L Normal 10-54 [facility] Comment on above: Order Comment: Speci men Type: BLOOD SPECIMENOrdering Facility: [facility] Address: [address] [place], [place] [address] Performed By: #### 2 4323-8, 3083-03, ####[facility] [id number] [place] [address] [place] Anion gap [Moles/Vol] 9 mmol/L Normal 9-18 [facility] Comment on above: Order Comment: Speci men Type: BLOOD SPECIMENOrdering Facility: [facility] Address: [address] [place], [place] [address] Performed By: #### 2 4323-8, 3083-03, ####[facility] [id number] [place] [address] [place] AST [Catalytic activity/Vol] 24 U/L Normal 14-40 [facility] Comment on above: Order Comment: Speci men Type: BLOOD SPECIMENOrdering Facility: [facility] Address: [address] [place], [place] [address] Performed By: #### 2 4323-8, 3083-03, ####[facility] [id number] [place] [id number] [place] Bilirubin [Mass/Vol] 0.3 mg/dL Normal 0.2-1.3 [facility] Comment on above: Order Comment: Speci men Type: BLOOD SPECIMENOrdering Facility: [facility] Address: [address] [place], [place] [address] Performed By: #### 2 4323-8, 3083-, ####[facility] [id number] [place] [address] [place] Calcium [Mass/Vol] 9.3 mg/dL Normal 8.5-10.2 [facility] Comment on above: Order Comment: Speci men Type: BLOOD SPECIMENOrdering Facility: [facility] Address: [address] [place], [place] [address] Performed By: #### 2 4323-8, 3083-03, ####[facility] [id number] [place] [address] [place] Chloride [Moles/Vol] 104 mmol/L Normal 97-105 [facility] Comment on above: Order Comment: Speci men Type: BLOOD SPECIMENOrdering Facility: [facility] Address: [address] [place], [place] [address] Performed By: #### 2 4323-8, 3083-03, ####[facility] [id number] [place] [address] [place] CO2 [Moles/Vol] 28 mmol/L Normal 22-30 [facility] Comment on above: Order Comment: Speci men Type: BLOOD SPECIMENOrdering Facility: [facility] Address: [address] [place], [place] [address] Performed By: #### 2 4323-8, 3083-03, ####[facility] [id number] [place] [id number] [place] Creatinine [Mass/Vol] 1.19 mg/dL Normal 0.73-1.22 [facility] Comment on above: Order Comment: Speci men Type: BLOOD SPECIMENOrdering Facility: [facility] Address: [address] [place] [address] Performed By: #### 2 4323-8, 3084-1, ####[facility] [id number] [address] [place] ESTIMATED GLOMERULAR FILTRATION RATE 71 mL/min/1.73m??? Normal >=60 [facility] Comment on above: Order Comment: Aaliyah gibson Type: BLOOD SPECIMENOrdering Facility: [facility] Address: [address] [place], [place] [address] Result Comment: Laurita mated Glomerular Filtration Rate [...] #### 2 4323-8, 3084-1, ####[facility] [id number] [place] [address] [place] Glucose [Mass/Vol] 131 mg/dL High 74-99 [facility] Comment on above: Order Comment: Aaliyah paige Type: BLOOD SPECIMENOrdering Facility: [facility] Address: [address] [place], [place] [address] Result Comment: The [place] [employer] (ADA) provides guidance for cutoff [...] Standards of Medical Care in Diabetes 2016, [place] [employer]. Diabetes Care. 2016.39(Suppl 1). Performed By: #### 2 4323-8, 3084-1, 91623-6 ####[facility] [id number] [place] [address] [place] Potassium [Moles/Vol] 4.0 mmol/L Normal 3.7-5.1 [facility] Comment on above: Order Comment: Speci men Type: BLOOD SPECIMENOrdering Facility: [facility] Address: [address] [place], [place] [address] Performed By: #### 2 4323-8, 3084-1, ####[facility] [id number] [place] [address] [place] Protein [Mass/Vol] 6.4 g/dL Normal 6.3-8.0 [facility] Comment on above: Order Comment: Speci men Type: BLOOD SPECIMENOrdering Facility: [facility] Address: [address] [place], [place] [address] Performed By: #### 2 4323-8, 308-1, ####[facility] [id number] [place] [address] [place] Sodium [Moles/Vol] 141 mmol/L Normal 136-144 [facility] Comment on above: Order Comment: Speci men Type: BLOOD SPECIMENOrdering Facility: [facility] Address: [address] [place] [phone] Performed By: #### 2 4323-8, 3084-1, ####[facility] [id number] [place] [id number] [place] Urea nitrogen [Mass/Vol] 19 mg/dL Normal 9-24 [facility] Comment on above: Order Comment: Speci men Type: BLOOD SPECIMENOrdering Facility: [facility] Address: [address] [place], [place] [address] Performed By: #### 2 4323-8, 3084-1, 90241-2 ####[facility] [id number] [place] [address] LDH SerPl-cCncon 10-09-2021 LDH [Catalytic activity/Vol] 348 U/L High 135-225 [facility] Comment on above: Order Comment: Speci men Type: BLOOD SPECIMENOrdering Facility: [facility] Address: [address] [place] [address] Performed By: #### 2 532-0 ####[facility] [id number] [place] [address] Magnesium SerPl-mCncon 10-09 Magnesium [Mass/Vol] 2.2 mg/dL Normal 1.7-2.3 [facility] Comment on above: Order Comment: Speci men Type: BLOOD SPECIMENOrdering Facility: [facility] Address: [address] [place] [address] Performed By: #### 2 4323-8, 3084-1, 10545-5 ####[facility] [id number] [place] [address] PT panel Coag (PPP)on 2021 INR Coag (PPP) [Relative time] 2.8 {INR} High 0.9-1.3 [facility] Comment on above: Order Comment: Speci paige Type: BLOOD SPECIMENOrdering Facility: [facility] Address: [address] [place] [address] Result Comment: Constanza min K Antagonist (VKA) Therapeutic Range: INR 2 to 3 (Target INR of 2.5)Note: For patients treated with VKA drugs, such as warfarin, the [place] [employer] 2012 Guideline recommends [...] al. Chest 2012, 141:7S-47SNishimura RA, et al. [facility] 2017, 70: 252-289 Performed By: #### 1 4979-9, 74812-7 ####[facility] [id number] [place] [address] [place] PT Coag (PPP) [Time] 27.9 s High 9.7-13.0 [facility] Comment on above: Order Comment: Spectricia men Type: BLOOD SPECIMENOrdering Facility: [facility] Address: [address] [place] [address] Performed By: #### 1 4979-9, 63298-3 ####[facility] [id number] [place] [address] [place] Phosphate SerPl-mCncon 10-09 Phosphate [Mass/Vol] 3.4 mg/dL Normal 2.7-4.8 [facility] Comment on above: Order Comment: Aaliyah gibson Type: BLOOD SPECIMENOrdering Facility: [facility] Address: [address] [place] [address] Performed By: #### 2 777-1 ####[facility] [id number] [place] [address] [place] T3Free SerPl-mCncon 10-10-19 22 Free T3 [Mass/Vol] 3.0 pg/mL Normal 2.3-4.1 [facility] Comment on above: Order Comment: Aaliyah gibson Type: BLOOD SPECIMENOrdering Facility: [facility] Address: [address] [place] [address] Performed By: #### 3 051-0, 3024-7 ####[facility] [id number] [place] [address] [place] T4 Free SerPl-mCncon 022 Free T4 [Mass/Vol] 1.2 ng/dL Normal 0.9-1.7 [facility] Comment on above: Order Comment: Speci men Type: BLOOD SPECIMENOrdering Facility: [facility] Address: [address] [place] [address] Performed By: #### 3 051-0, 3024-7 ####[facility] [id number] [place] [address] [place] TSH SerPl-aCncon 10-09-2021 TSH Qn 0.925 m[IU]/L Normal 0.270-4.20 0 [facility] Comment on above: Order Comment: Speci men Type: BLOOD SPECIMENOrdering Facility: [facility] Address: [address] [place] [address] Performed By: #### 3 016-3 ####[facility] [id number] [address] [place] Urate SerPl-mCncon 2 Urate [Mass/Vol] 8.3 mg/dL High 4.0-8.1 [facility] Comment on above: Order Comment: Speci men Type: BLOOD SPECIMENOrdering Facility: [facility] Address: [address] [place] [address] Performed By: #### 2 4323-8, 3084-1, 10416-6 ####[facility] [id number] [place] [address] [place] aPTT PPPon 10-09-2021 aPTT Coag (PPP) [Time] 31.7 s Normal 23.0-32.4 [facility] Comment on above: Order Comment: Speci men Type: BLOOD SPECIMENOrdering Facility: [facility] Address: [address] [place], [place] [address] Performed By: #### 1 4979-9, 03130-9 ####[facility] LABCLIA [id number] [place] [address] [place] CNPNon 09-29-2021 CNPN Normal [facility] CNPTOUTREACHon 09-29-2021 CNPTOUTREACH Normal [facility] Basic metabolic 2000 panelon 09-26-2021 Anion gap [Moles/Vol] 6 mmol/L Low 9-18 [facility] Comment on above: Order Comment: Speci men Type: BLOOD SPECIMENOrdering Facility: [facility] Address: [address] [place], [place] [address] Performed By: #### 2 4321-2 ####[facility] LABCLIA [id number] [place] [address] [place] Calcium [Mass/Vol] 9.9 mg/dL Normal 8.5-10.2 [facility] Comment on above: Order Comment: Speci men Type: BLOOD SPECIMENOrdering Facility: [facility] Address: [address] [place], [place] [address] Performed By: #### 2 4321-2 ####[facility] LABCLIA [id number] [place] [address] [place] Chloride [Moles/Vol] 98 mmol/L Normal 97-105 [facility] Comment on above: Order Comment: Speci men Type: BLOOD SPECIMENOrdering Facility: [facility] Address: [address] [place], [place] [address] Performed By: #### 2 4321-2 ####[facility] LABCLIA [id number] [place] [id number] [place] CO2 [Moles/Vol] 38 mmol/L High 22-30 [facility] Comment on above: Order Comment: Speci men Type: BLOOD SPECIMENOrdering Facility: [facility] Address: [address] [place] [address] Performed By: #### 2 4321-2 ####[facility] LABIA [id number] [address] [place] Creatinine [Mass/Vol] 1.07 mg/dL Normal 0.73-1.22 [facility] Comment on above: Order Comment: Speci men Type: BLOOD SPECIMENOrdering Facility: [facility] Address: [address] [place] [address] Performed By: #### 2 4321-2 ####[facility] LABIA [id number] [address] [place] ESTIMATED GLOMERULAR FILTRATION RATE 81 mL/min/1.73m??? Normal >=60 [facility] Comment on above: Order Comment: Speci men Type: BLOOD SPECIMENOrdering Facility: [facility] Address: [address] [place] [address] Result Comment: Laurita mated Glomerular Filtration Rate [...] actual GFR. Performed By: #### 2 4321-2 ####[facility] LABIA [id number] [place] [address] [place] Glucose [Mass/Vol] 127 mg/dL High 74-99 [facility] Comment on above: Order Comment: Speci men Type: BLOOD SPECIMENOrdering Facility: [facility] Address: [address] [place] [address] Result Comment: The [place] [employer] (ADA) provides guidance for cutoff [...] Standards of Medical Care in Diabetes 2016, [place] [employer]. Diabetes Care. 2016.39(Suppl 1). Performed By: #### 2 4321-2 ####[facility] LABCLIA [id number] [place] [address] [place] Potassium [Moles/Vol] 3.7 mmol/L Normal 3.7-5.1 [facility] Comment on above: Order Comment: Aaliyah gibson Type: BLOOD SPECIMENOrdering Facility: [facility] Address: [address] [place] [address] Performed By: #### 2 4321-2 ####[facility] LABCLIA [id number] [place] [address] [place] Sodium [Moles/Vol] 142 mmol/L Normal 136-144 [facility] Comment on above: Order Comment: Aaliyah gibson Type: BLOOD SPECIMENOrdering Facility: [facility] Address: [address] [place] [address] Performed By: #### 2 4321-2 ####[facility] LABCLIA [id number] [place] [address] [place] Urea nitrogen [Mass/Vol] 27 mg/dL High 9-24 [facility] Comment on above: Order Comment: Aaliyah gibson Type: BLOOD SPECIMENOrdering Facility: [facility] Address: [address] [place] [address] Performed By: #### 2 4321-2 ####[facility] LABCLIA [id number] [place] [address] [place] CBC panel Auto (Bld)on 09-26 Erythrocyte distribution width (RBC) [Ratio] 17.2 % High 11.5-15.0 [facility] Comment on above: Order Comment: Speci men Type: BLOOD SPECIMENOrdering Facility: [facility] Address: [address] [place] [address] Performed By: #### 5 8410-2 ####[facility] LABCLIA [id number] [address] STATES [facility] Hematocrit (Bld) [Volume fraction] 41.7 % Normal 39.0-51.0 [facility] Comment on above: Order Comment: Speci men Type: BLOOD SPECIMENOrdering Facility: [facility] Address: [address] [place] [address] Performed By: #### 5 8410-2 ####[facility] LABCLIA [id number] [address] [place] Hemoglobin (Bld) [Mass/Vol] 13.4 g/dL Normal 13.0-17.0 [facility] Comment on above: Order Comment: Speci men Type: BLOOD SPECIMENOrdering Facility: [facility] Address: [address] [place], [place] [address] Performed By: #### 5 8410-2 ####[facility] LABCLIA [id number] [place] [address] [place] MCH (RBC) [Entitic mass] 29.8 pg Normal 26.0-34.0 [facility] Comment on above: Order Comment: Speci men Type: BLOOD SPECIMENOrdering Facility: [facility] Address: [address] [place], [place] [address] Performed By: #### 5 8410-2 ####[facility] LABCLIA [id number] [place] [address] [place] MCHC (RBC) [Mass/Vol] 32.1 g/dL Normal 30.5-36.0 [facility] Comment on above: Order Comment: Speci men Type: BLOOD SPECIMENOrdering Facility: [facility] Address: [address] [place], [place] [address] Performed By: #### 5 8410-2 ####[facility] LABIA [id number] [place] [address] [place] MCV (RBC) [Entitic vol] 92.7 fL Normal 80.0-100.0 [facility] Comment on above: Order Comment: Speci men Type: BLOOD SPECIMENOrdering Facility: [facility] Address: [address] [place], [place] [address] Performed By: #### 5 8410-2 ####[facility] [id number] [place] [address] [place] Nucleated RBC (Bld) [#/Vol] 0.02 10*3/uL High <0.01 [facility] Comment on above: Order Comment: Speci men Type: BLOOD SPECIMENOrdering Facility: [facility] Address: [address] [place], [place] [address] Performed By: #### 5 8410-2 ####[facility] [id number] [place] [address] [place] Platelet mean volume (Bld) [Entitic vol] 10.4 fL Normal 9.0-12.7 [facility] Comment on above: Order Comment: Speci men Type: BLOOD SPECIMENOrdering Facility: [facility] Address: [address] [place] [address] Performed By: #### 5 8410-2 ####[facility] [id number] [place] [address] [place] Platelets (Bld) [#/Vol] 177 10*3/uL Normal 150-400 [facility] Comment on above: Order Comment: Speci men Type: BLOOD SPECIMENOrdering Facility: [facility] Address: [address] [place] [id number] Performed By: #### 5 8410-2 ####[facility] LABCLIA [id number] [place] [address] [place] RBC (Bld) [#/Vol] 4.50 10*6/uL Normal 4.20-6.00 [facility] Comment on above: Order Comment: Speci men Type: BLOOD SPECIMENOrdering Facility: [facility] Address: [address] [place], [place] [address] Performed By: #### 5 8410-2 ####[facility] LABIA [id number] [place] [address] [place] WBC (Bld) [#/Vol] 9.26 10*3/uL Normal 3.70-11.00 [facility] Comment on above: Order Comment: Speci men Type: BLOOD SPECIMENOrdering Facility: [facility] Address: [address] [place], [place] [address] Performed By: #### 5 8410-2 ####[facility] LABIA [id number] [place] [address] [place] CNDSon 09-26-2021 CNDS Normal [facility] ECG COMPLETEon 09-26-2021 ECG COMPLETE Normal [facility] ECHOLon 09-26-2021 ECHOL Normal [facility] NURSING PROGon 09-26-2021 NURSING PROG Normal [facility] PT EDon 09-26-2021 PT ED Normal [facility] PT panel Coag (PPP)on 2021 INR Coag (PPP) [Relative time] 1.3 {INR} Normal 0.9-1.3 [facility] Comment on above: Order Comment: Speci men Type: BLOOD SPECIMENOrdering Facility: [facility] Address: [address] [place], [place] [phone] Result Comment: Constanza min K Antagonist (VKA) Therapeutic Range: INR 2 to 3 (Target INR of 2.5)Note: For patients treated with VKA drugs, such as warfarin, the [place] [employer] 2012 Guideline recommends [...] al. Chest 2012, 141:7S-47SNishimura RA, et al. [facility] 2017, 70: 252-289 Performed By: #### 3 4528-0 ####[facility] LABCLIA [id number] [place] [address] [place] PT Coag (PPP) [Time] 13.5 s High 9.7-13.0 [facility] Comment on above: Order Comment: Speci men Type: BLOOD SPECIMENOrdering Facility: [facility] Address: [address] [place] [address] Performed By: #### 3 4528-0 ####[facility] LABIA [id number] [place] [address] [place] ANES POSTPROC EVALon 022 ANES POSTPROC EVAL Normal [facility] ANES PRE-OPon 09-25-2021 ANES PRE-OP Normal [facility] Basic metabolic 2000 panelon 09-25-2021 Anion gap [Moles/Vol] 10 mmol/L Normal 9-18 [facility] Comment on above: Order Comment: Aaliyah gibson Type: BLOOD SPECIMENOrdering Facility: [facility] Address: [address] [place] [address] Performed By: #### 1 9123-9, 65915-1 ####[facility] LABCLIA [id number] [facility] [address] [place] Calcium [Mass/Vol] 9.4 mg/dL Normal 8.5-10.2 [facility] Comment on above: Order Comment: Speci men Type: BLOOD SPECIMENOrdering Facility: [facility] Address: [address] [place] [address] Performed By: #### 1 9123-9, 52369-9 ####[facility] LABCLIA [id number] [facility] [address] [place] Chloride [Moles/Vol] 99 mmol/L Normal 97-105 [facility] Comment on above: Order Comment: Speci men Type: BLOOD SPECIMENOrdering Facility: [facility] Address: [address] [place], [place] [address] Performed By: #### 1 9123-9, 46800-8 ####[facility] LABCLIA [id number] [place] [address] [place] CO2 [Moles/Vol] 31 mmol/L High 22-30 [facility] Comment on above: Order Comment: Speci men Type: BLOOD SPECIMENOrdering Facility: [facility] Address: [address] [place], [place] [address] Performed By: #### 1 9123-9, 14010-5 ####[facility] LABCLIA [id number] [place] [address] [place] Creatinine [Mass/Vol] 0.95 mg/dL Normal 0.73-1.22 [facility] Comment on above: Order Comment: Speci men Type: BLOOD SPECIMENOrdering Facility: [facility] Address: [address] [place] [address] Performed By: #### 1 9123-9, 72803-6 ####[facility] LABCLIA [id number] [place] [address] [place] ESTIMATED GLOMERULAR FILTRATION RATE 93 mL/min/1.73m??? Normal >=60 [facility] Comment on above: Order Comment: Aaliyah gibson Type: BLOOD SPECIMENOrdering Facility: [facility] Address: [address] [place] [address] Result Comment: Laurita mated Glomerular Filtration Rate [...] actual GFR. Performed By: #### 1 9123-9, 87150-9 ####[facility] [id number] [place] [address] [place] Glucose [Mass/Vol] 116 mg/dL High 74-99 [facility] Comment on above: Order Comment: Aaliyah gibson Type: BLOOD SPECIMENOrdering Facility: [facility] Address: [address] [place] [address] Result Comment: The [place] [employer] (ADA) provides guidance for cutoff [...] Standards of Medical Care in Diabetes 2016, [place] [employer]. Diabetes Care. 2016.39(Suppl 1). Performed By: #### 1 9123-9, 19216-3 ####[facility] LABIA [id number] [place] [address] [place] Potassium [Moles/Vol] 3.8 mmol/L Normal 3.7-5.1 [facility] Comment on above: Order Comment: Speci men Type: BLOOD SPECIMENOrdering Facility: [facility] Address: [address] [place] [address] Performed By: #### 1 9123-9, 83713-6 ####[facility] LABCLIA [id number] [address] STATES OF [facility] Sodium [Moles/Vol] 140 mmol/L Normal 136-144 [facility] Comment on above: Order Comment: Speci men Type: BLOOD SPECIMENOrdering Facility: [facility] Address: [address] [place] [address] Performed By: #### 1 9123-9, 67773-1 ####[facility] LABCLIA [id number] [address] [place] Urea nitrogen [Mass/Vol] 24 mg/dL Normal 9-24 [facility] Comment on above: Order Comment: Speci men Type: BLOOD SPECIMENOrdering Facility: [facility] Address: [address] [place] [address] Performed By: #### 1 9123-9, 79145-1 ####[facility] LABIA [id number] [address] [place] CASE MANAGEMon 09-25-2021 CASE MANAGEM Normal [facility] CBC panel Auto (Bld)on 09-25 Erythrocyte distribution width (RBC) [Ratio] 17.1 % High 11.5-15.0 [facility] Comment on above: Order Comment: Speci men Type: BLOOD SPECIMENOrdering Facility: [facility] Address: [address] [place], [place] [address] Performed By: #### 5 8410-2 ####[facility] LABIA [id number] [address] STATES [place] Hematocrit (Bld) [Volume fraction] 41.6 % Normal 39.0-51.0 [facility] Comment on above: Order Comment: Speci men Type: BLOOD SPECIMENOrdering Facility: [facility] Address: [address] [place], [place] [address] Performed By: #### 5 8410-2 ####[facility] [id number] [place] [address] [place] Hemoglobin (Bld) [Mass/Vol] 13.7 g/dL Normal 13.0-17.0 [facility] Comment on above: Order Comment: Speci men Type: BLOOD SPECIMENOrdering Facility: [facility] Address: [address] [place] [address] Performed By: #### 5 8410-2 ####[facility] [id number] [place] [address] [place] MCH (RBC) [Entitic mass] 30.3 pg Normal 26.0-34.0 [facility] Comment on above: Order Comment: Speci men Type: BLOOD SPECIMENOrdering Facility: [facility] Address: [address] [place], [place] [address] Performed By: #### 5 8410-2 ####[facility] [id number] [address] [place] MCHC (RBC) [Mass/Vol] 32.9 g/dL Normal 30.5-36.0 [facility] Comment on above: Order Comment: Speci men Type: BLOOD SPECIMENOrdering Facility: [facility] Address: [address] [place], [place] [address] Performed By: #### 5 8410-2 ####[facility] [id number] [place] [address] [place] MCV (RBC) [Entitic vol] 92.0 fL Normal 80.0-100.0 [facility] Comment on above: Order Comment: Speci men Type: BLOOD SPECIMENOrdering Facility: [facility] Address: [address] [place], [place] [address] Performed By: #### 5 8410-2 ####[facility] LABCLIA [id number] [facility] [place] [address] [place] Nucleated RBC (Bld) [#/Vol] 0.03 10*3/uL High <0.01 [facility] Comment on above: Order Comment: Speci men Type: BLOOD SPECIMENOrdering Facility: [facility] Address: [address] [place], [place] [address] Performed By: #### 5 8410-2 ####[facility] LABCLIA [id number] [place] [address] [place] Platelet mean volume (Bld) [Entitic vol] 10.2 fL Normal 9.0-12.7 [facility] Comment on above: Order Comment: Speci men Type: BLOOD SPECIMENOrdering Facility: [facility] Address: [address] [place], [place] [address] Performed By: #### 5 8410-2 ####[facility] LABIA [id number] [place] [address] [place] Platelets (Bld) [#/Vol] 175 10*3/uL Normal 150-400 [facility] Comment on above: Order Comment: Speci men Type: BLOOD SPECIMENOrdering Facility: [facility] Address: [address] [place], [place] [address] Performed By: #### 5 8410-2 ####[facility] LABCLIA [id number] [facility] [place] [address] [place] RBC (Bld) [#/Vol] 4.52 10*6/uL Normal 4.20-6.00 [facility] Comment on above: Order Comment: Speci men Type: BLOOD SPECIMENOrdering Facility: [facility] Address: [address] [place], [place] [address] Performed By: #### 5 8410-2 ####[facility] LABCLIA [id number] [place] [address] [place] WBC (Bld) [#/Vol] 10.86 10*3/uL Normal 3.70-11.00 [facility] Comment on above: Order Comment: Speci men Type: BLOOD SPECIMENOrdering Facility: [facility] Address: [address] [place] [address] Performed By: #### 5 8410-2 ####[facility] LABCLIA [id number] [place] [address] [place] CNOVon 09-25-2021 CNOV Normal [facility] [id number] 09-25-2021 ECG01 Normal [facility] Magnesium SerPl-mCncon 09-25 Magnesium [Mass/Vol] 2.2 mg/dL Normal 1.7-2.3 [facility] Comment on above: Order Comment: Speci men Type: BLOOD SPECIMENOrdering Facility: [facility] Address: [address] [place] [address] Performed By: #### 1 9123-9, 46390-1 ####[facility] LABCLIA [id number] [place] [address] [place] POTASSIUM BLDon 09-25-2021 Potassium [Moles/Vol] 4.5 mmol/L Normal 3.7-5.1 [facility] Comment on above: Order Comment: Speci men Type: BLOOD SPECIMENOrdering Facility: [facility] Address: [address] [place] [address] Performed By: #### K 1 ####[facility] LABIA [id number] [place] [address] [place] PT EDon 09-25-2021 PT ED Normal [facility] PT panel Coag (PPP)on 2021 INR Coag (PPP) [Relative time] 1.2 {INR} Normal 0.9-1.3 [facility] Comment on above: Order Comment: Speci men Type: BLOOD SPECIMENOrdering Facility: [facility] Address: [address] [place] [address] Result Comment: Constanza min K Antagonist (VKA) Therapeutic Range: INR 2 to 3 (Target INR of 2.5)Note: For patients treated with VKA drugs, such as warfarin, the [place] [employer] 2012 Guideline recommends [...] al. Chest 2012, 141:7S-47SNishimura RA, et al. [facility] 2017, 70: 252-289 Performed By: #### 3 4528-0 ####[facility] [id number] [place] [address] [place] PT Coag (PPP) [Time] 12.7 s Normal 9.7-13.0 [facility] Comment on above: Order Comment: Speci men Type: BLOOD SPECIMENOrdering Facility: [facility] Address: [address] [place], [place] [address] Performed By: #### 3 4528-0 ####[facility] [id number] [place] [address] [place] TEEon 09-25-2021 LISA Normal [facility] Basic metabolic 2000 panelon 09-24-2021 Anion gap [Moles/Vol] 12 mmol/L Normal 9-18 [facility] Comment on above: Order Comment: Speci men Type: BLOOD SPECIMENOrdering Facility: [facility] Address: [address] [place], [place] [address] Performed By: #### 1 9123-9, 54941-4 ####[facility] LABCLIA [id number] [facility] AV[facility] [place] [address] [place] Calcium [Mass/Vol] 9.0 mg/dL Normal 8.5-10.2 [facility] Comment on above: Order Comment: Speci men Type: BLOOD SPECIMENOrdering Facility: [facility] Address: [address] [place], [place] [address] Performed By: #### 1 91239, 74542-8 ####[facility] LABCLIA [id number] [facility] [place] [place] [address] [place] Chloride [Moles/Vol] 100 mmol/L Normal 97-105 [facility] Comment on above: Order Comment: Speci men Type: BLOOD SPECIMENOrdering Facility: [facility] Address: [address] [place] [address] Performed By: #### 1 91239, 35275-3 ####[facility] LABCLIA [id number] [facility] [place] [address] [place] CO2 [Moles/Vol] 29 mmol/L Normal 22-30 [facility] Comment on above: Order Comment: Speci men Type: BLOOD SPECIMENOrdering Facility: [facility] Address: [address] [place], [place] [address] Performed By: #### 1 9122-11, 09173-1 ####[facility] LABCLIA [id number] [facility] [place] [place] [address] [place] Creatinine [Mass/Vol] 1.08 mg/dL Normal 0.73-1.22 [facility] Comment on above: Order Comment: Speci men Type: BLOOD SPECIMENOrdering Facility: [facility] Address: [address] [place], [place] [address] Performed By: #### 1 91239, 99613-0 ####[facility] LABCLIA [id number] [place] [address] [place] ESTIMATED GLOMERULAR FILTRATION RATE 80 mL/min/1.73m??? Normal >=60 [facility] Comment on above: Order Comment: Aaliyah gibson Type: BLOOD SPECIMENOrdering Facility: [facility] Address: [address] Result Comment: Laurita mated Glomerular Filtration Rate [...] actual GFR. Performed By: #### 1 9123-9, 88861-5 ####[facility] LABCLIA [id number] [place] [address] [place] Glucose [Mass/Vol] 150 mg/dL High 74-99 [facility] Comment on above: Order Comment: Aaliyah gibson Type: BLOOD SPECIMENOrdering Facility: [facility] Address: [address] [address] Result Comment: The [place] [employer] (ADA) provides guidance for cutoff [...] Standards of Medical Care in Diabetes 2016, [place] [employer]. Diabetes Care. 2016.39(Suppl 1). Performed By: #### 1 9123-9, 49687-2 ####[facility] LABCLIA [id number] [place] [address] [place] Potassium [Moles/Vol] 3.5 mmol/L Low 3.7-5.1 [facility] Comment on above: Order Comment: Speci men Type: BLOOD SPECIMENOrdering Facility: [facility] Address: [address] [place], [place] [address] Performed By: #### 1 9123-9, 34139-3 ####[facility] LABCLIA [id number] [place] [address] [place] Sodium [Moles/Vol] 141 mmol/L Normal 136-144 [facility] Comment on above: Order Comment: Speci men Type: BLOOD SPECIMENOrdering Facility: [facility] Address: [address] [place], [place] [address] Performed By: #### 1 9123-9, 64874-9 ####[facility] LABIA [id number] [place] [address] [place] Urea nitrogen [Mass/Vol] 22 mg/dL Normal 9-24 [facility] Comment on above: Order Comment: Speci men Type: BLOOD SPECIMENOrdering Facility: [facility] Address: [address] [place], [place] [address] Performed By: #### 1 9123-9, 38526-3 ####[facility] LABIA [id number] [place] [address] [place] CBC panel Auto (Bld)on 09-24 Erythrocyte distribution width (RBC) [Ratio] 17.2 % High 11.5-15.0 [facility] Comment on above: Order Comment: Speci men Type: BLOOD SPECIMENOrdering Facility: [facility] Address: [address] [place], [place] [address] Performed By: #### 5 8410-2 ####[facility] LABIA [id number] [address] [place] Hematocrit (Bld) [Volume fraction] 42.3 % Normal 39.0-51.0 [facility] Comment on above: Order Comment: Speci men Type: BLOOD SPECIMENOrdering Facility: [facility] Address: [address] [place] [address] Performed By: #### 5 8410-2 ####[facility] [id number] [place] [address] [place] Hemoglobin (Bld) [Mass/Vol] 13.6 g/dL Normal 13.0-17.0 [facility] Comment on above: Order Comment: Speci men Type: BLOOD SPECIMENOrdering Facility: [facility] Address: [address] [place] [address] Performed By: #### 5 8410-2 ####[facility] [id number] [address] [place] MCH (RBC) [Entitic mass] 30.0 pg Normal 26.0-34.0 [facility] Comment on above: Order Comment: Speci men Type: BLOOD SPECIMENOrdering Facility: [facility] Address: [address] [place] [address] Performed By: #### 5 8410-2 ####[facility] [id number] [address] [place] MCHC (RBC) [Mass/Vol] 32.2 g/dL Normal 30.5-36.0 [facility] Comment on above: Order Comment: Speci men Type: BLOOD SPECIMENOrdering Facility: [facility] Address: [address] [place], [place] [address] Performed By: #### 5 8410-2 ####[facility] [id number] [place] [address] [place] MCV (RBC) [Entitic vol] 93.4 fL Normal 80.0-100.0 C [facility] Comment on above: Order Comment: Speci men Type: BLOOD SPECIMENOrdering Facility: [facility] Address: [address] [place], [place] [address] Performed By: #### 5 8410-2 ####[facility] LABCLIA [id number] [place] [address] [place] Nucleated RBC (Bld) [#/Vol] 10*3/uL Normal <0.01 [facility] Comment on above: Order Comment: Speci men Type: BLOOD SPECIMENOrdering Facility: [facility] Address: [address] [place], [place] [address] Performed By: #### 5 8410-2 ####[facility] LABCLIA [id number] [place] [address] [place] Platelet mean volume (Bld) [Entitic vol] 10.1 fL Normal 9.0-12.7 [facility] Comment on above: Order Comment: Speci men Type: BLOOD SPECIMENOrdering Facility: [facility] Address: [address] [place], [place] [address] Performed By: #### 5 8410-2 ####[facility] LABIA [id number] [place] [address] [place] Platelets (Bld) [#/Vol] 186 10*3/uL Normal 150-400 [facility] Comment on above: Order Comment: Speci men Type: BLOOD SPECIMENOrdering Facility: [facility] Address: [address] [place] [address] Performed By: #### 5 8410-2 ####[facility] LABIA [id number] [place] [address] [place] RBC (Bld) [#/Vol] 4.53 10*6/uL Normal 4.20-6.00 [facility] Comment on above: Order Comment: Speci men Type: BLOOD SPECIMENOrdering Facility: [facility] Address: [address] [place], [place] [address] Performed By: #### 5 8410-2 ####[facility] LABCLIA [id number] [place] [address] [place] WBC (Bld) [#/Vol] 9.42 10*3/uL Normal 3.70-11.00 [facility] Comment on above: Order Comment: Speci men Type: BLOOD SPECIMENOrdering Facility: [facility] Address: [address] [place] [address] Performed By: #### 5 8410-2 ####[facility] [id number] [place] [address] [place] Magnesium SerPl-mCncon 09-24 Magnesium [Mass/Vol] 2.1 mg/dL Normal 1.7-2.3 [facility] Comment on above: Order Comment: Speci men Type: BLOOD SPECIMENOrdering Facility: [facility] Address: [address] [place] [address] Performed By: #### 1 9123-9, 50489-9 ####[facility] [id number] [place] [address] [place] POTASSIUM BLDon 09-24-2021 Potassium [Moles/Vol] 3.7 mmol/L Normal 3.7-5.1 [facility] Comment on above: Order Comment: Speci men Type: BLOOD SPECIMENOrdering Facility: [facility] Address: [address] [place] [address] Performed By: #### K 1 ####[facility] [id number] [place] [address] [place] PT EDon 09-24-2021 PT ED Normal [facility] PT panel Coag (PPP)on 2021 INR Coag (PPP) [Relative time] 1.2 {INR} Normal 0.9-1.3 [facility] Comment on above: Order Comment: Speci men Type: BLOOD SPECIMENOrdering Facility: [facility] Address: [address] [place], [place] [address] Result Comment: Constanza min K Antagonist (VKA) Therapeutic Range: INR 2 to 3 (Target INR of 2.5)Note: For patients treated with VKA drugs, such as warfarin, the [place] [employer] 2012 Guideline recommends [...] al. Chest 2012, 141:7S-47SNishimkhalida RA, et al. [facility] 2017, 70: 252-289 Performed By: #### 3 4528-0 ####[facility] LABIA [id number] [place] [address] [place] PT Coag (PPP) [Time] 12.3 s Normal 9.7-13.0 [facility] Comment on above: Order Comment: Speci men Type: BLOOD SPECIMENOrdering Facility: [facility] Address: [address] [place] [address] Performed By: #### 3 4528-0 ####[facility] LABIA [id number] [place] [address] [place] PTT, ANTICOAGULANT THERAPYon 09-24-2021 aPTT Coag (PPP) [Time] 34.3 s High 23.0-32.4 [facility] Comment on above: Order Comment: Speci men Type: BLOOD SPECIMENOrdering Facility: [facility] Address: [address] [place] [address] Performed By: #### P TTAC ####[facility] LABCLIA [id number] [place] [address] [place] aPTT Coag (PPP) [Time] 53.2 s High 23.0-32.4 [facility] Comment on above: Order Comment: Speci men Type: BLOOD SPECIMENOrdering Facility: [facility] Address: [address] [place] [address] Performed By: #### P TTA ####[facility] LABCLIA [id number] [place] [address] [place] Basic metabolic 2000 panelon 09-23-2021 Anion gap [Moles/Vol] 9 mmol/L Normal 9-18 [facility] Comment on above: Order Comment: Speci men Type: BLOOD SPECIMENOrdering Facility: [facility] Address: [address] [place], [place] [address] Performed By: #### 3 016-3, 13837-8, 93467-3, 48864-1 ####[facility] LABCLIA [id number] [place] [address] [place] Calcium [Mass/Vol] 9.1 mg/dL Normal 8.5-10.2 [facility] Comment on above: Order Comment: Speci men Type: BLOOD SPECIMENOrdering Facility: [facility] Address: [address] [place] [address] Performed By: #### 3 016-3, 14929-0, 06865-9, 41596-9 ####[facility] LABCLIA [id number] [place] [address] [place] Chloride [Moles/Vol] 100 mmol/L Normal 97-105 [facility] Comment on above: Order Comment: Speci men Type: BLOOD SPECIMENOrdering Facility: [facility] Address: [address] [place], [place] [address] Performed By: #### 3 016-3, 05365-7, 90465-6, 61390-0 ####[facility] LABCLIA [id number] [place] [id number] [place] CO2 [Moles/Vol] 32 mmol/L High 22-30 [facility] Comment on above: Order Comment: Speci men Type: BLOOD SPECIMENOrdering Facility: [facility] Address: [address] [place] [address] Performed By: #### 3 016-3, 40273-6, 90955-3, ####[facility] LABCLIA [id number] [place] [address] [place] Creatinine [Mass/Vol] 1.20 mg/dL Normal 0.73-1.22 [facility] Comment on above: Order Comment: Speci men Type: BLOOD SPECIMENOrdering Facility: [facility] Address: [address] [place] [address] Performed By: #### 3 016-3, 12353-1, 03395-8, ####[facility] LABIA [id number] [address] OF [facility] ESTIMATED GLOMERULAR FILTRATION RATE 71 mL/min/1.73m??? Normal >=60 [facility] Comment on above: Order Comment: Speci men Type: BLOOD SPECIMENOrdering Facility: [facility] Address: [address] [place] [address] Result Comment: Laurita mated Glomerular Filtration Rate [...] actual GFR. Performed By: #### 3 016-3, 96856-9, 04717-3, ####[facility] LABCLIA [id number] [place] [address] [place] Glucose [Mass/Vol] 133 mg/dL High 74-99 [facility] [place] Comment on above: Order Comment: Speci men Type: BLOOD SPECIMENOrdering Facility: [facility] Address: [address] [place], [place] [id number] Result Comment: The [place] [employer] (ADA) provides guidance for cutoff [...] Standards of Medical Care in Diabetes 2016, [place] [employer]. Diabetes Care. 2016.39(Suppl 1). Performed By: #### 3 016-3, 12149-1, 83679-8, ####[facility] LABCLIA [id number] [place] [address] [place] Potassium [Moles/Vol] 3.1 mmol/L Low 3.7-5.1 [facility] Comment on above: Order Comment: Speci men Type: BLOOD SPECIMENOrdering Facility: [facility] Address: [address] [place] [address] Performed By: #### 3 016-3, 70223-1, 51266-2, ####[facility] LABCLIA [id number] [place] [address] [place] Sodium [Moles/Vol] 141 mmol/L Normal 136-144 [facility] Comment on above: Order Comment: Speci men Type: BLOOD SPECIMENOrdering Facility: [facility] Address: [address] [place] [address] Performed By: #### 3 016-3, 27471-6, 97542-6, ####[facility] LABCLIA [id number] [place] [address] [place] Urea nitrogen [Mass/Vol] 22 mg/dL Normal 9-24 [facility] Comment on above: Order Comment: Speci men Type: BLOOD SPECIMENOrdering Facility: [facility] Address: [address] [place] [address] Performed By: #### 3 016-3, 41846-3, 32635-3, 85999-3 ####[facility] LABCLIA [id number] [place] [address] [place] CASE MGT INIT ASSESon 2021 CASE MGT INIT ASSES Normal [facility] CBC W Auto Differential pane l (Bld)on 09-23-2021 Basophils (Bld) [#/Vol] 10*3/uL Normal <0.11 [facility] Comment on above: Order Comment: Speci men Type: BLOOD SPECIMENOrdering Facility: [facility] Address: [address] [place] [address] Performed By: #### 5 7021-8 ####[facility] LABCLIA [id number] [place] [address] [place] Basophils/100 WBC (Bld) 0.1 % Normal C [facility] Comment on above: Order Comment: Speci men Type: BLOOD SPECIMENOrdering Facility: [facility] Address: [address] [place] [address] Performed By: #### 5 7021-8 ####[facility] LABCLIA [id number] [place] [address] [place] Differential cell count method Nom (Bld) Auto Normal [facility] Comment on above: Order Comment: Speci men Type: BLOOD SPECIMENOrdering Facility: [facility] Address: [address] [place] [address] Performed By: #### 5 7021-8 ####[facility] LABCLIA [id number] [place] [address] [place] Eosinophils (Bld) [#/Vol] 10*3/uL Normal <0.46 [facility] Comment on above: Order Comment: Speci men Type: BLOOD SPECIMENOrdering Facility: [facility] Address: [address] [place], [place] [address] Performed By: #### 5 7021-8 ####[facility] LABCLIA [id number] [place] [address] [place] Eosinophils/100 WBC (Bld) 0.0 % Normal [facility] Comment on above: Order Comment: Speci men Type: BLOOD SPECIMENOrdering Facility: [facility] Address: [address] [place], [place] [address] Performed By: #### 5 7021-8 ####[facility] LABIA [id number] [place] [address] [place] Erythrocyte distribution width (RBC) [Ratio] 17.2 % High 11.5-15.0 [facility] Comment on above: Order Comment: Speci men Type: BLOOD SPECIMENOrdering Facility: [facility] Address: [address] [place], [place] [address] Performed By: #### 5 7021-8 ####[facility] LABIA [id number] [place] [address] [place] Hematocrit (Bld) [Volume fraction] 39.3 % Normal 39.0-51.0 [facility] Comment on above: Order Comment: Speci men Type: BLOOD SPECIMENOrdering Facility: [facility] Address: [address] [place] [address] Performed By: #### 5 7021-8 ####[facility] LABIA [id number] [place] [address] [place] Hemoglobin (Bld) [Mass/Vol] 12.7 g/dL Low 13.0-17.0 [facility] Comment on above: Order Comment: Speci men Type: BLOOD SPECIMENOrdering Facility: [facility] Address: [address] [place] [address] Performed By: #### 5 7021-8 ####[facility] LABCLIA [id number] [place] [address] [place] IMMATURE GRAN % 0.7 % Normal [facility] Comment on above: Order Comment: Speci men Type: BLOOD SPECIMENOrdering Facility: [facility] Address: [address] [place], [place] [address] Performed By: #### 5 7021-8 ####[facility] LABIA [id number] [place] [address] [place] IMMATURE GRAN ABS 0.06 k/uL Normal <0.10 [facility] Comment on above: Order Comment: Speci men Type: BLOOD SPECIMENOrdering Facility: [facility] Address: [address] [place], [place] [address] Performed By: #### 5 7021-8 ####[facility] LABIA [id number] [place] [address] [place] Lymphocytes (Bld) [#/Vol] 1.69 10*3/uL Normal 1.00-4.00 [facility] Comment on above: Order Comment: Speci men Type: BLOOD SPECIMENOrdering Facility: [facility] Address: [address] [place], [place] [address] Performed By: #### 5 7021-8 ####[facility] LABIA [id number] [place] [address] [place] Lymphocytes/100 WBC (Bld) 18.7 % Normal [facility] Comment on above: Order Comment: Speci men Type: BLOOD SPECIMENOrdering Facility: [facility] Address: [address] [place], [place] [address] Performed By: #### 5 7021-8 ####[facility] LABIA [id number] [place] [address] [place] MCH (RBC) [Entitic mass] 30.2 pg Normal 26.0-34.0 [facility] Comment on above: Order Comment: Speci men Type: BLOOD SPECIMENOrdering Facility: [facility] Address: [address] [place] [address] Performed By: #### 5 7021-8 ####[facility] LABCLIA [id number] [address] OF [place] MCHC (RBC) [Mass/Vol] 32.3 g/dL Normal 30.5-36.0 [facility] Comment on above: Order Comment: Speci men Type: BLOOD SPECIMENOrdering Facility: [facility] Address: [address] [place] [address] Performed By: #### 5 7021-8 ####[facility] LABCLIA [id number] [address] [place] MCV (RBC) [Entitic vol] 93.3 fL Normal 80.0-100.0 [facility] Comment on above: Order Comment: Speci men Type: BLOOD SPECIMENOrdering Facility: [facility] Address: [address] [place], [place] [address] Performed By: #### 5 7021-8 ####[facility] LABIA [id number] [place] [address] [place] Monocytes (Bld) [#/Vol] 0.62 10*3/uL Normal <0.87 [facility] Comment on above: Order Comment: Speci men Type: BLOOD SPECIMENOrdering Facility: [facility] Address: [address] [place], [place] [address] Performed By: #### 5 7021-8 ####[facility] LABCLIA [id number] [address] [place] Monocytes/100 WBC (Bld) 6.8 % Normal C [facility] Comment on above: Order Comment: Speci men Type: BLOOD SPECIMENOrdering Facility: [facility] Address: [address] [place] [address] Performed By: #### 5 7021-8 ####[facility] LABCLIA [id number] [place] [address] [place] Neutrophils (Bld) [#/Vol] 6.68 10*3/uL Normal 1.45-7.50 [facility] Comment on above: Order Comment: Speci men Type: BLOOD SPECIMENOrdering Facility: [facility] Address: [address] [place], [place] [address] Performed By: #### 5 7021-8 ####[facility] LABCLIA [id number] [place] [address] [place] Neutrophils/100 WBC (Bld) 73.7 % Normal [facility] Comment on above: Order Comment: Speci men Type: BLOOD SPECIMENOrdering Facility: [facility] Address: [address] [place], [place] [address] Performed By: #### 5 7021-8 ####[facility] LABCLIA [id number] [place] [address] [place] Nucleated RBC (Bld) [#/Vol] 10*3/uL Normal <0.01 [facility] Comment on above: Order Comment: Speci men Type: BLOOD SPECIMENOrdering Facility: [facility] Address: [address] [place] [address] Performed By: #### 5 7021-8 ####[facility] LABCLIA [id number] [place] [address] [place] Nucleated RBC/100 WBC (Bld) [Ratio] 0.0 /100 WBC Normal [facility] Comment on above: Order Comment: Speci men Type: BLOOD SPECIMENOrdering Facility: [facility] Address: [address] [place] [address] Performed By: #### 5 7021-8 ####[facility] LABCLIA [id number] [place] [address] [place] Platelet mean volume (Bld) [Entitic vol] 10.3 fL Normal 9.0-12.7 [facility] Comment on above: Order Comment: Speci men Type: BLOOD SPECIMENOrdering Facility: [facility] Address: [address] [place], [place] [address] Performed By: #### 5 7021-8 ####[facility] LABCLIA [id number] [place] [address] [place] Platelets (Bld) [#/Vol] 178 10*3/uL Normal 150-400 [facility] Comment on above: Order Comment: Speci men Type: BLOOD SPECIMENOrdering Facility: [facility] Address: [address] [place], [place] [address] Performed By: #### 5 7021-8 ####[facility] LABIA [id number] [place] [address] [place] RBC (Bld) [#/Vol] 4.21 10*6/uL Normal 4.20-6.00 [facility] Comment on above: Order Comment: Speci men Type: BLOOD SPECIMENOrdering Facility: [facility] Address: [address] [place], [place] [address] Performed By: #### 5 7021-8 ####[facility] LABIA [id number] [place] [address] [place] WBC (Bld) [#/Vol] 9.06 10*3/uL Normal 3.70-11.00 [facility] Comment on above: Order Comment: Speci men Type: BLOOD SPECIMENOrdering Facility: [facility] Address: [address] [place], [place] [address] Performed By: #### 5 7021-8 ####[facility] LABIA [id number] [employer] [facility] [id number] CBC panel Auto (Bld)on 09-23 Erythrocyte distribution width (RBC) [Ratio] 17.1 % High 11.5-15.0 [facility] Comment on above: Order Comment: Speci men Type: BLOOD SPECIMENOrdering Facility: [facility] Address: [address] [place] [address] Performed By: #### 5 8410-2 ####[facility] LABCLIA [id number] [address] Hematocrit (Bld) [Volume fraction] 41.2 % Normal 39.0-51.0 [facility] Comment on above: Order Comment: Speci men Type: BLOOD SPECIMENOrdering Facility: [facility] Address: [address] [place] [address] Performed By: #### 5 8410-2 ####[facility] LABIA [id number] [address] Hemoglobin (Bld) [Mass/Vol] 13.3 g/dL Normal 13.0-17.0 [facility] Comment on above: Order Comment: Speci men Type: BLOOD SPECIMENOrdering Facility: [facility] Address: [address] [place] [address] Performed By: #### 5 8410-2 ####[facility] LABIA [id number] [address] STATES [facility] MCH (RBC) [Entitic mass] 30.4 pg Normal 26.0-34.0 [facility] Comment on above: Order Comment: Speci men Type: BLOOD SPECIMENOrdering Facility: [facility] Address: [address] [place], [place] [address] Performed By: #### 5 8410-2 ####[facility] LABCLIA [id number] [address] STATES [facility] MCHC (RBC) [Mass/Vol] 32.3 g/dL Normal 30.5-36.0 [facility] Comment on above: Order Comment: Speci men Type: BLOOD SPECIMENOrdering Facility: [facility] Address: [address] [place], [place] [address] Performed By: #### 5 8410-2 ####[facility] LABCLIA [id number] [place] [address] [place] MCV (RBC) [Entitic vol] 94.1 fL Normal 80.0-100.0 [facility] Comment on above: Order Comment: Speci men Type: BLOOD SPECIMENOrdering Facility: [facility] Address: [address] [place], [place] [address] Performed By: #### 5 8410-2 ####[facility] LABIA [id number] [place] [address] [place] Nucleated RBC (Bld) [#/Vol] 10*3/uL Normal <0.01 [facility] Comment on above: Order Comment: Speci men Type: BLOOD SPECIMENOrdering Facility: [facility] Address: [address] [place], [place] [address] Performed By: #### 5 8410-2 ####[facility] LABIA [id number] [place] [address] [place] Platelet mean volume (Bld) [Entitic vol] 10.0 fL Normal 9.0-12.7 [facility] Comment on above: Order Comment: Speci men Type: BLOOD SPECIMENOrdering Facility: [facility] Address: [address] [place] [address] Performed By: #### 5 8410-2 ####[facility] LABIA [id number] [place] [address] [place] Platelets (Bld) [#/Vol] 186 10*3/uL Normal 150-400 [facility] Comment on above: Order Comment: Speci men Type: BLOOD SPECIMENOrdering Facility: [facility] Address: [address] [place], [place] [address] Performed By: #### 5 8410-2 ####[facility] LABIA [id number] [place] [address] [place] RBC (Bld) [#/Vol] 4.38 10*6/uL Normal 4.20-6.00 [facility] Comment on above: Order Comment: Speci men Type: BLOOD SPECIMENOrdering Facility: [facility] Address: [address] [place], [place] [address] Performed By: #### 5 8410-2 ####[facility] LABIA [id number] [place] [address] [place] WBC (Bld) [#/Vol] 8.98 10*3/uL Normal 3.70-11.00 [facility] Comment on above: Order Comment: Speci men Type: BLOOD SPECIMENOrdering Facility: [facility] Address: [address] [place] [address] Performed By: #### 5 8410-2 ####[facility] LABIA [id number] [place] [address] [place] CNOVon 09-23-2021 CNOV Normal [facility] Comprehensive metabolic 2000 panelon 09-23-2021 Albumin [Mass/Vol] 3.6 g/dL Low 3.9-4.9 [facility] Comment on above: Order Comment: Speci men Type: BLOOD SPECIMENOrdering Facility: [facility] Address: [address] [place] [address] Performed By: #### 2 4323-8, 00742-9, 35996-1 ####[facility] LABIA [id number] [place] [address] [place] ALP [Catalytic activity/Vol] 93 U/L Normal 38-113 [facility] Comment on above: Order Comment: Speci men Type: BLOOD SPECIMENOrdering Facility: [facility] Address: [address] [place], [place] [address] Performed By: #### 2 4323-8, 25603-1, 46766-0 ####[facility] LABCLIA [id number] [place] [address] [place] ALT [Catalytic activity/Vol] 112 U/L High 10-54 [facility] Comment on above: Order Comment: Speci men Type: BLOOD SPECIMENOrdering Facility: [facility] Address: [address] [place], [place] [address] Performed By: #### 2 4323-8, 21145-0, 92881-4 ####[facility] LABIA [id number] [place] [address] [place] Anion gap [Moles/Vol] 10 mmol/L Normal 9-18 [facility] Comment on above: Order Comment: Speci men Type: BLOOD SPECIMENOrdering Facility: [facility] Address: [address] [place], [place] [address] Performed By: #### 2 4323-8, 11166-1, ####[facility] LABIA [id number] [place] [address] [place] AST [Catalytic activity/Vol] 52 U/L High 14-40 [facility] Comment on above: Order Comment: Speci men Type: BLOOD SPECIMENOrdering Facility: [facility] Address: [address] [place] [address] Performed By: #### 2 4323-8, 62280-2, 19929-0 ####[facility] LABIA [id number] [place] [id number] [place] Bilirubin [Mass/Vol] 0.4 mg/dL Normal 0.2-1.3 [facility] Comment on above: Order Comment: Speci men Type: BLOOD SPECIMENOrdering Facility: [facility] Address: [address] [place] [address] Performed By: #### 2 4323-8, 41251-9, 07741-1 ####[facility] LABCLIA [id number] [place] [id number] [place] Calcium [Mass/Vol] 8.8 mg/dL Normal 8.5-10.2 [facility] Comment on above: Order Comment: Speci men Type: BLOOD SPECIMENOrdering Facility: [facility] Address: [address] [place], [place] [address] Performed By: #### 2 4323-8, 52714-1, ####[facility] LABCLIA [id number] [place] [address] [place] Chloride [Moles/Vol] 101 mmol/L Normal 97-105 [facility] Comment on above: Order Comment: Speci men Type: BLOOD SPECIMENOrdering Facility: [facility] Address: [address] [place], [place] [address] Performed By: #### 2 4323-8, 36575-9, ####[facility] LABCLIA [id number] [place] [address] [place] CO2 [Moles/Vol] 31 mmol/L High 22-30 [facility] Comment on above: Order Comment: Speci men Type: BLOOD SPECIMENOrdering Facility: [facility] Address: [address] [place] [address] Performed By: #### 2 4323-8, 09230-4, ####[facility] LABCLIA [id number] [place] [id number] [place] Creatinine [Mass/Vol] 1.24 mg/dL High 0.73-1.22 [facility] Comment on above: Order Comment: Speci men Type: BLOOD SPECIMENOrdering Facility: [facility] Address: [address] [place], [place] [address] Performed By: #### 2 4323-8, 89323-4, 83388-4 ####[facility] LABCLIA [id number] [place] [address] [place] ESTIMATED GLOMERULAR FILTRATION RATE 68 mL/min/1.73m??? Normal >=60 [facility] Comment on above: Order Comment: Aaliyah gibson Type: BLOOD SPECIMENOrdering Facility: [facility] Address: [address] [place] [address] Result Comment: Laurita mated Glomerular Filtration Rate [...] actual GFR. Performed By: #### 2 4323-8, 90426-7, 48806-8 ####[facility] LABCLIA [id number] [place] [address] [place] Glucose [Mass/Vol] 176 mg/dL High 74-99 [facility] Comment on above: Order Comment: Aaliyah gibson Type: BLOOD SPECIMENOrdering Facility: [facility] Address: [address] [place] [address] Result Comment: The [place] [employer] (ADA) provides guidance for cutoff [...] Standards of Medical Care in Diabetes 2016, [place] [employer]. Diabetes Care. 2016.39(Suppl 1). Performed By: #### 2 4323-8, 45177-9, 47140-1 ####[facility] LABCLIA [id number] [address] [address] [place] Potassium [Moles/Vol] 3.2 mmol/L Low 3.7-5.1 [facility] Comment on above: Order Comment: Speci men Type: BLOOD SPECIMENOrdering Facility: [facility] Address: [address] [place], [place] [address] Performed By: #### 2 4323-8, 07541-8, ####[facility] LABCLIA [id number] [place] [address] [place] Protein [Mass/Vol] 6.0 g/dL Low 6.3-8.0 [facility] Comment on above: Order Comment: Speci men Type: BLOOD SPECIMENOrdering Facility: [facility] Address: [address] [place], [place] [address] Performed By: #### 2 4323-8, 95698-2, ####[facility] LABCLIA [id number] [place] [address] [place] Sodium [Moles/Vol] 142 mmol/L Normal 136-144 [facility] Comment on above: Order Comment: Speci men Type: BLOOD SPECIMENOrdering Facility: [facility] Address: [address] [place] [address] Performed By: #### 2 4323-8, 81081-0, ####[facility] LABCLIA [id number] [address] [address] [place] Urea nitrogen [Mass/Vol] 24 mg/dL Normal 9-24 [facility] Comment on above: Order Comment: Speci men Type: BLOOD SPECIMENOrdering Facility: [facility] Address: [address] [place], [place] [address] Performed By: #### 2 4323-8, 85434-2, 92998-3 ####[facility] LABCLIA [id number] [place] [address] [place] ECG COMPLETEon 09-23-2021 ECG COMPLETE Normal [facility] Lipid 1996 panelon 2 Cholesterol [Mass/Vol] 152 mg/dL Normal <200 [facility] Comment on above: Order Comment: Speci men Type: BLOOD SPECIMENOrdering Facility: [facility] Address: [address] [place], [place] [address] Result Comment: <200 mg/dL, Desirable 200-239 mg/dL, Borderline high>239 mg/dL, High Performed By: #### 3 016-3, 69117-7, 19997-6, ####[facility] LABCLIA [id number] [address] [place] Cholesterol in HDL [Mass/Vol] 55 mg/dL Normal >39 [facility] Comment on above: Order Comment: Speci men Type: BLOOD SPECIMENOrdering Facility: [facility] Address: [address] [place] [address] Result Comment: 40-5 9 mg/dL, Acceptable>59 mg/dL, High: Negative risk factor for coronary heart disease<40 mg/dL, Low: Positive risk factor for coronary heart disease Performed By: #### 3 016-3, 87706-3, 16570-1, ####[facility] [place] LABCLIA [id number] [address] [place] Cholesterol in LDL [Mass/Vol] 87 mg/dL Normal <100 [facility] Comment on above: Order Comment: Speci men Type: BLOOD SPECIMENOrdering Facility: [facility] Address: [address] [place] [address] Result Comment: <100 mg/dL, Optimal 100-129 mg/dL, Near optimal/above optimal 130-159 mg/dL, Borderline high 160-189 mg/dL, High>189 mg/dL, Very highSecondary prevention optimal LDL Cholesterol levels are recommended to be < 70 mg/dL Performed By: #### 3 016-3, 27825-7, 01486-9, ####[facility] [place] LABCLIA [id number] [address] [place] Cholesterol in LDL/Cholesterol in HDL [Mass ratio] 1.58 {ratio} Normal <2.54 [facility] Comment on above: Order Comment: Speci men Type: BLOOD SPECIMENOrdering Facility: [facility] Address: [address] [place] [address] Result Comment: Refe yakelince:1. National Cholesterol Education Program ATP III Guideline At-A-Glance Quick Desk Reference: National Heart, Lung, and Blood [place]. National Institutes of Health. 2001: NIH Publication No. 01-3305.2. An International Atherosclerosis Society position paper: global recommendations for the management of dyslipidemia: executive summary, Atherosclerosis. 2014: 232(2):410-413. Performed By: #### 3 016-3, 63649-1, 44117-0, ####[facility] [place] LABIA [id number] [place] [address] [place] Cholesterol in VLDL [Mass/Vol] 10 mg/dL Normal <30 [facility] Comment on above: Order Comment: Speci men Type: BLOOD SPECIMENOrdering Facility: [facility] Address: [address] [place] [address] Performed By: #### 3 016-3, 78161-9, 94662-7, ####[facility] [place] LABIA [id number] [address] [place] Cholesterol non HDL [Mass/Vol] 97 mg/dL Normal <130 [facility] Comment on above: Order Comment: Speci men Type: BLOOD SPECIMENOrdering Facility: [facility] Address: [address] [place] [address] Result Comment: <130 mg/dL, Optimal 130-159 mg/dL, Near optimal/above optimal 160-189 mg/dL, Borderline high 190-219 mg/dL, High>219 mg/dL, Very highSecondary prevention optimal non HDL Cholesterol levels are recommended to be <100 mg/dL Performed By: #### 3 016-3, 49232-9, 27062-9, ####[facility] [place] LABCLIA [id number] [place] [address] [place] Cholesterol.total/Urvashi sterol in HDL [Mass ratio] 2.76 {ratio} Normal <5.10 [facility] Comment on above: Order Comment: Speci men Type: BLOOD SPECIMENOrdering Facility: [facility] Address: [address] [place] [address] Performed By: #### 3 016-3, 60024-9, 19360-0, ####[facility] [place] LABCLIA [id number] [address] [place] FASTING TIME 9 hrs Normal [facility] Comment on above: Order Comment: Speci men Type: BLOOD SPECIMENOrdering Facility: [facility] Address: [address] [place] [address] Performed By: #### 3 016-3, 68756-9, 33104-9, ####[facility] [place] LABCLIA [id number] [address] STATES [facility] Triglyceride [Mass/Vol] 51 mg/dL Normal <150 [facility] Comment on above: Order Comment: Speci men Type: BLOOD SPECIMENOrdering Facility: [facility] Address: [address] [place] [address] Result Comment: <150 mg/dL, Normal 150-199 mg/dL, Borderline high 200-499 mg/dL, High>499 mg/dL, Very high Performed By: #### 3 016-3, 44771-2, 37942-5, ####[facility] [place] LABCLIA [id number] [place] [id number] [place] Magnesium SerPl-mCncon 07-19 -2022 Magnesium [Mass/Vol] 2.0 mg/dL Normal 1.7-2.3 [facility] Comment on above: Order Comment: Speci men Type: BLOOD SPECIMENOrdering Facility: [facility] Address: [address] [place] [address] Performed By: #### 3 016-3, 21524-0, 25902-0, 37491-7 ####[facility] [place] LABCLIA [id number] [place] [address] [place] Magnesium [Mass/Vol] 2.1 mg/dL Normal 1.7-2.3 [facility] Comment on above: Order Comment: Speci men Type: BLOOD SPECIMENOrdering Facility: [facility] Address: [address] [place] [address] Performed By: #### 2 4323-8, 46457-2, ####[facility] [place] LABCLIA [id number] [place] [address] [place] NT-proBNP [facility] 09-23 Natriuretic peptide.B prohormone N-Terminal [Mass/Vol] 1946 pg/mL High <125 [facility] Comment on above: Order Comment: Speci men Type: BLOOD SPECIMENOrdering Facility: [facility] Address: [address] [place] [address] Performed By: #### 2 4323-8, 37104-1, ####[facility] [place] LABCLIA [id number] [place] [address] [place] POTASSIUM BLDon 09-23-2021 Potassium [Moles/Vol] 3.4 mmol/L Low 3.7-5.1 [facility] Comment on above: Order Comment: Speci men Type: BLOOD SPECIMENOrdering Facility: [facility] Address: [address] [place] [address] Performed By: #### K 1 ####[facility] [place] LABCLIA [id number] [address] [place] Potassium [Moles/Vol] 3.5 mmol/L Low 3.7-5.1 [facility] Comment on above: Order Comment: Speci men Type: BLOOD SPECIMENOrdering Facility: [facility] Address: [address] [place] [address] Performed By: #### K 1 ####[facility] [place] LABCLIA [id number] [address] PT panel Coag (PPP)on 2021 INR Coag (PPP) [Relative time] 1.2 {INR} Normal 0.9-1.3 [facility] Comment on above: Order Comment: Speci paige Type: BLOOD SPECIMENOrdering Facility: [facility] Address: [address] [place] [address] Result Comment: Constanza min K Antagonist (VKA) Therapeutic Range: INR 2 to 3 (Target INR of 2.5)Note: For patients treated with VKA drugs, such as warfarin, the [place] [employer] 2012 Guideline recommends [...] al. Chest 2012, 141:7S-47SNishimura RA, et al. [facility] 2017, 70: 252-289 Performed By: #### P [facility], 35042-6 ####[facility] [place] LABCLIA [id number] [place] [address] [place] PT Coag (PPP) [Time] 12.3 s Normal 9.7-13.0 [facility] Comment on above: Order Comment: Speci men Type: BLOOD SPECIMENOrdering Facility: [facility] Address: [address] [place] [address] Performed By: #### P TTA, 98493-1 ####[facility] LABCLIA [id number] [place] [address] [place] INR Coag (PPP) [Relative time] 1.1 {INR} Normal 0.9-1.3 [facility] Comment on above: Order Comment: Speci men Type: BLOOD SPECIMENOrdering Facility: [facility] Address: [address] [place] [address] Result Comment: Constanza min K Antagonist (VKA) Therapeutic Range: INR 2 to 3 (Target INR of 2.5)Note: For patients treated with VKA drugs, such as warfarin, the [place] [employer] 2012 Guideline recommends [...] al. Chest 2012, 141:7S-47SNishnini RA, et al. [facility] 2017, 70: 252-289 Performed By: #### 3 4528-0, 85903-9 ####[facility] [place] LABCLIA [id number] [place] [address] [place] PT Coag (PPP) [Time] 11.9 s Normal 9.7-13.0 [facility] Comment on above: Order Comment: Speci men Type: BLOOD SPECIMENOrdering Facility: [facility] Address: [address] [place] [address] Performed By: #### 3 4528-0, 52653-5 ####[facility] [id number] [address] PTT, ANTICOAGULANT THERAPYon 09-23-2021 aPTT Coag (PPP) [Time] s High 23.0-32.4 [facility] Comment on above: Order Comment: Speci men Type: BLOOD SPECIMENOrdering Facility: [facility] Address: [address] [place] [address] Result Comment: Samp le checked for clot.Result rechecked. Performed By: #### P TTAC ####[facility] [id number] [address] aPTT Coag (PPP) [Time] s High 23.0-32.4 [facility] Comment on above: Order Comment: Speci men Type: BLOOD SPECIMENOrdering Facility: [facility] Address: [address] [place] [address] Result Comment: Samp le checked for clot.Result rechecked. Performed By: #### P TTAC ####[facility] [id number] [address] STATES [facility] aPTT Coag (PPP) [Time] 73.9 s High 23.0-32.4 [facility] Comment on above: Order Comment: Speci men Type: BLOOD SPECIMENOrdering Facility: [facility] Address: [address] [place] [address] Performed By: #### P TTAC, 05842-8 ####[facility] [id number] [address] OF [facility] SARS-CoV-2 RNA Resp Ql SANDOVAL+p robeon 09-23-2021 SARS-CoV-2 (COVID-19) RNA SANDOVAL+probe Ql (Resp) COVID 19 RESULT: SARS-CoV-2 (Agent of COVID-19) Not Detected by RT-PCR or equivalent method. This test has been authorized by FDA under an Emergency Use Authorization (EUA). Normal [facility] Comment on above: Performed By: #### 9 4500-6 ####[facility] LABCLIA [id number] [place] [address] [place] TSH SerPl-aCncon 09-23-2021 TSH Qn 1.870 m[IU]/L Normal 0.270-4.20 0 [facility] Comment on above: Order Comment: Speci men Type: BLOOD SPECIMENOrdering Facility: [facility] Address: [address] [place] [address] Performed By: #### 3 016-3, 36882-6, 78856-2, 64314-7 ####[facility] LABIA [id number] [place] [address] [place] aPTT PPPon 09-23-2021 aPTT Coag (PPP) [Time] 25.4 s Normal 23.0-32.4 [facility] Comment on above: Order Comment: Speci men Type: BLOOD SPECIMENOrdering Facility: [facility] Address: [address] [place] [address] Performed By: #### 3 4528-0, 62064-7 ####[facility] [id number] [place] [address] [place] CNOVon 09-22-2021 CNOV Normal [facility] HISTORY PHYSICALon HISTORY PHYSICAL Normal [facility] NURSING PROGon 09-22-2021 NURSING PROG Normal [facility] XR CHEST 1V FRONTAL PORTon 0 09-22-2021 XR CHEST 1V FRONTAL PORT Normal [facility] CNPNon 09-19-2021 CNPN Normal [facility] CNPNon 09-16-2021 CNPN Normal [facility] CBC W Auto Differential pane l (Bld)on 09-11-2021 Basophils (Bld) [#/Vol] 10*3/uL Normal <0.11 [facility] Comment on above: Order Comment: Speci men Type: BLOOD SPECIMENOrdering Facility: [facility] Address: [address] [place], [place] [address] Performed By: #### 5 7021-8 ####[facility] [place] [id number] [place] [address] [place] Basophils/100 WBC (Bld) 0.3 % Normal C [facility] Comment on above: Order Comment: Speci men Type: BLOOD SPECIMENOrdering Facility: [facility] Address: [address] [place] [address] Performed By: #### 5 7021-8 ####[facility] [id number] [place] [address] [place] Differential cell count method Nom (Bld) Auto Normal [facility] Comment on above: Order Comment: Speci men Type: BLOOD SPECIMENOrdering Facility: [facility] Address: [address] [place], [place] [address] Performed By: #### 5 7021-8 ####[facility] [id number] [place] [address] [place] Eosinophils (Bld) [#/Vol] 0.03 10*3/uL Normal <0.46 [facility] Comment on above: Order Comment: Speci men Type: BLOOD SPECIMENOrdering Facility: [facility] Address: [address] [place], [place] [address] Performed By: #### 5 7021-8 ####[facility] [place] [id number] [place] [address] Eosinophils/100 WBC (Bld) 0.5 % Normal [facility] Comment on above: Order Comment: Speci men Type: BLOOD SPECIMENOrdering Facility: [facility] Address: [address] [place], [place] [address] Performed By: #### 5 7021-8 ####[facility] [id number] [place] [address] [place] Erythrocyte distribution width (RBC) [Ratio] 15.5 % High 11.5-15.0 [facility] Comment on above: Order Comment: Speci men Type: BLOOD SPECIMENOrdering Facility: [facility] Address: [address] [place] [address] Performed By: #### 5 7021-8 ####[facility] [id number] [place] [address] [place] Hematocrit (Bld) [Volume fraction] 42.0 % Normal 39.0-51.0 [facility] Comment on above: Order Comment: Speci men Type: BLOOD SPECIMENOrdering Facility: [facility] Address: [address] [place] [address] Performed By: #### 5 7021-8 ####[facility] [id number] [place] [address] [place] Hemoglobin (Bld) [Mass/Vol] 13.5 g/dL Normal 13.0-17.0 [facility] Comment on above: Order Comment: Speci men Type: BLOOD SPECIMENOrdering Facility: [facility] Address: [address] [place] [address] Performed By: #### 5 7021-8 ####[facility] [id number] [place] [address] OF [facility] IMMATURE GRAN % 0.3 % Normal [facility] Comment on above: Order Comment: Speci men Type: BLOOD SPECIMENOrdering Facility: [facility] Address: [address] [place] [address] Performed By: #### 5 7021-8 ####[facility] [id number] [place] [address] [place] IMMATURE GRAN ABS <0.03 Normal <0.10 [facility] Comment on above: Order Comment: Speci men Type: BLOOD SPECIMENOrdering Facility: [facility] Address: [address] [place], [place] [address] Performed By: #### 5 7021-8 ####[facility] [id number] [place] [address] [place] Lymphocytes (Bld) [#/Vol] 1.12 10*3/uL Normal 1.00-4.00 [facility] Comment on above: Order Comment: Speci men Type: BLOOD SPECIMENOrdering Facility: [facility] Address: [address] [place], [place] [address] Performed By: #### 5 7021-8 ####[facility] [id number] [place] [address] [place] Lymphocytes/100 WBC (Bld) 17.2 % Normal [facility] Comment on above: Order Comment: Speci men Type: BLOOD SPECIMENOrdering Facility: [facility] Address: [address] [place], [place] [address] Performed By: #### 5 7021-8 ####[facility] [place] [facility] [id number] [place] [address] [place] MCH (RBC) [Entitic mass] 29.6 pg Normal 26.0-34.0 [facility] Comment on above: Order Comment: Speci men Type: BLOOD SPECIMENOrdering Facility: [facility] Address: [address] [place], [place] [address] Performed By: #### 5 7021-8 ####[facility] [id number] [place] [address] [place] MCHC (RBC) [Mass/Vol] 32.1 g/dL Normal 30.5-36.0 [facility] Comment on above: Order Comment: Speci men Type: BLOOD SPECIMENOrdering Facility: [facility] Address: [address] [place], [place] [address] Performed By: #### 5 7021-8 ####[facility] [id number] [place] [address] [place] MCV (RBC) [Entitic vol] 92.1 fL Normal 80.0-100.0 C [facility] Comment on above: Order Comment: Speci men Type: BLOOD SPECIMENOrdering Facility: [facility] Address: [address] [place], [place] [address] Performed By: #### 5 7021-8 ####[facility] [id number] [place] [address] [place] Monocytes (Bld) [#/Vol] 0.53 10*3/uL Normal <0.87 [facility] Comment on above: Order Comment: Speci men Type: BLOOD SPECIMENOrdering Facility: [facility] Address: [address] [place], [place] [address] Performed By: #### 5 7021-8 ####[facility] [id number] [place] [address] [place] Monocytes/100 WBC (Bld) 8.1 % Normal C [facility] Comment on above: Order Comment: Speci men Type: BLOOD SPECIMENOrdering Facility: [facility] Address: [address] [place], [place] [address] Performed By: #### 5 7021-8 ####[facility] [id number] [place] [address] [place] Neutrophils (Bld) [#/Vol] 4.81 10*3/uL Normal 1.45-7.50 [facility] Comment on above: Order Comment: Speci men Type: BLOOD SPECIMENOrdering Facility: [facility] Address: [address] [place], [place] [address] Performed By: #### 5 7021-8 ####[facility] [id number] [place] [address] [place] Neutrophils/100 WBC (Bld) 73.6 % Normal [facility] Comment on above: Order Comment: Speci men Type: BLOOD SPECIMENOrdering Facility: [facility] Address: [address] [place] [address] Performed By: #### 5 7021-8 ####[facility] [id number] [place] [address] [place] Nucleated RBC (Bld) [#/Vol] 10*3/uL Normal <0.01 [facility] Comment on above: Order Comment: Speci men Type: BLOOD SPECIMENOrdering Facility: [facility] Address: [address] [place], [place] [address] Performed By: #### 5 7021-8 ####[facility] [id number] [place] [address] [place] Nucleated RBC/100 WBC (Bld) [Ratio] 0.0 /100 WBC Normal [facility] Comment on above: Order Comment: Speci men Type: BLOOD SPECIMENOrdering Facility: [facility] Address: [address] [place], [place] [address] Performed By: #### 5 7021-8 ####[facility] [id number] [place] [address] [place] Platelet mean volume (Bld) [Entitic vol] 9.7 fL Normal 9.0-12.7 [facility] Comment on above: Order Comment: Speci men Type: BLOOD SPECIMENOrdering Facility: [facility] Address: [address] [place], [place] [address] Performed By: #### 5 7021-8 ####[facility] [id number] [place] [address] [place] Platelets (Bld) [#/Vol] 267 10*3/uL Normal 150-400 [facility] Comment on above: Order Comment: Speci men Type: BLOOD SPECIMENOrdering Facility: [facility] Address: [address] [place], [place] [address] Performed By: #### 5 7021-8 ####[facility] [id number] [place] [address] [place] RBC (Bld) [#/Vol] 4.56 10*6/uL Normal 4.20-6.00 [facility] Comment on above: Order Comment: Speci men Type: BLOOD SPECIMENOrdering Facility: [facility] Address: [address] [place], [place] [address] Performed By: #### 5 7021-8 ####[facility] [place] [facility] [id number] [place] [address] [place] WBC (Bld) [#/Vol] 6.53 10*3/uL Normal 3.70-11.00 [facility] Comment on above: Order Comment: Speci men Type: BLOOD SPECIMENOrdering Facility: [facility] Address: [address] [place], [place] [address] Performed By: #### 5 7021-8 ####[facility] [place] [id number] [place] [address] [place] CNNURSEon 09-11-2021 CNNURSE Normal [facility] CNOVSPon 09-11-2021 CNOVSP Normal [facility] Comprehensive metabolic 2000 panelon 09-11-2021 Albumin [Mass/Vol] 4.1 g/dL Normal 3.9-4.9 [facility] Comment on above: Order Comment: Speci men Type: BLOOD SPECIMENOrdering Facility: [facility] Address: [address] [place], [place] [address] Performed By: #### 3 084-1, 36290-1, 80992-3 ####[facility] [id number] [place] [address] [place] ALP [Catalytic activity/Vol] 80 U/L Normal 38-113 [facility] Comment on above: Order Comment: Speci men Type: BLOOD SPECIMENOrdering Facility: [facility] Address: [address] [place], [place] [address] Performed By: #### 3 084-1, 85340-6, ####[facility] [id number] [place] [address] [place] ALT [Catalytic activity/Vol] 82 U/L High 10-54 [facility] Comment on above: Order Comment: Speci men Type: BLOOD SPECIMENOrdering Facility: [facility] Address: [address] [place], [place] [address] Performed By: #### 3 084-1, 17731-9, ####[facility] [id number] [place] [address] [place] Anion gap [Moles/Vol] 12 mmol/L Normal 9-18 [facility] Comment on above: Order Comment: Speci men Type: BLOOD SPECIMENOrdering Facility: [facility] Address: [address] [place], [place] [address] Performed By: #### 3 084-1, , ####[facility] [id number] [place] [address] [place] AST [Catalytic activity/Vol] 58 U/L High 14-40 [facility] Comment on above: Order Comment: Speci men Type: BLOOD SPECIMENOrdering Facility: [facility] Address: [address] [place], [place] [address] Performed By: #### 3 084-1, , ####[facility] [id number] [place] [address] [place] Bilirubin [Mass/Vol] 0.5 mg/dL Normal 0.2-1.3 [facility] Comment on above: Order Comment: Speci men Type: BLOOD SPECIMENOrdering Facility: [facility] Address: [address] [place], [place] [address] Performed By: #### 3 084-1, 26653-9, ####[facility] [id number] [place] [address] [place] Calcium [Mass/Vol] 9.4 mg/dL Normal 8.5-10.2 [facility] Comment on above: Order Comment: Speci men Type: BLOOD SPECIMENOrdering Facility: [facility] Address: [address] [place] [address] Performed By: #### 3 084-1, , ####[facility] [id number] [place] [address] [place] Chloride [Moles/Vol] 103 mmol/L Normal 97-105 [facility] Comment on above: Order Comment: Speci men Type: BLOOD SPECIMENOrdering Facility: [facility] Address: [address] [place], [place] [id number] Performed By: #### 3 084-1, , ####[facility] [id number] [place] [address] [place] CO2 [Moles/Vol] 29 mmol/L Normal 22-30 [facility] Comment on above: Order Comment: Speci men Type: BLOOD SPECIMENOrdering Facility: [facility] Address: [address] [place], [place] [id number] Performed By: #### 3 084-1, , ####[facility] [id number] [place] [address] [place] Creatinine [Mass/Vol] 1.18 mg/dL Normal 0.73-1.22 [facility] Comment on above: Order Comment: Speci men Type: BLOOD SPECIMENOrdering Facility: [facility] Address: [address] [place], [place] [address] Performed By: #### 3 084-1, 66866-2, ####[facility] [id number] [address] [place] ESTIMATED GLOMERULAR FILTRATION RATE 72 mL/min/1.73m??? Normal >=60 [facility] Comment on above: Order Comment: Aaliyah gibson Type: BLOOD SPECIMENOrdering Facility: [facility] Address: [address] [place], [place] [address] Result Comment: Laurita mated Glomerular Filtration Rate [...] actual GFR. Performed By: #### 3 084-1, 23872-3, 97362-9 ####[facility] [id number] [place] [address] [place] Glucose [Mass/Vol] 130 mg/dL High 74-99 [facility] Comment on above: Order Comment: Aaliyah paige Type: BLOOD SPECIMENOrdering Facility: [facility] Address: [address] [place], [place] [address] Result Comment: The [place] [employer] (ADA) provides guidance for cutoff [...] Standards of Medical Care in Diabetes 2016, [place] [employer]. Diabetes Care. 2016.39(Suppl 1). Performed By: #### 3 084-1, 05381-2, 84767-9 ####[facility] [id number] [place] [address] [place] Potassium [Moles/Vol] 3.3 mmol/L Low 3.7-5.1 [facility] Comment on above: Order Comment: Speci men Type: BLOOD SPECIMENOrdering Facility: [facility] Address: [address] [place], [place] [address] Performed By: #### 3 084-1, 71407-3, ####[facility] [id number] [place] [address] [place] Protein [Mass/Vol] 6.9 g/dL Normal 6.3-8.0 [facility] Comment on above: Order Comment: Speci men Type: BLOOD SPECIMENOrdering Facility: [facility] Address: [address] [place], [place] [address] Performed By: #### 3 084-1, 57715-7, ####[facility] [place] [facility] [id number] [place] [address] [place] Sodium [Moles/Vol] 144 mmol/L Normal 136-144 [facility] Comment on above: Order Comment: Speci men Type: BLOOD SPECIMENOrdering Facility: [facility] Address: [address] [place], [place] [address] Performed By: #### 3 084-1, 23577-3, 84907-4 ####[facility] [id number] [place] [address] [place] Urea nitrogen [Mass/Vol] 19 mg/dL Normal 9-24 [facility] Comment on above: Order Comment: Speci men Type: BLOOD SPECIMENOrdering Facility: [facility] Address: [address] [place] [address] Performed By: #### 3 084-1, 97306-9, 12095-2 ####[facility] [id number] [place] [address] LDH SerPl-cCncon 09-11-2021 LDH [Catalytic activity/Vol] 297 U/L High 135-225 [facility] Comment on above: Order Comment: Aaliyah gibson Type: BLOOD SPECIMENOrdering Facility: [facility] Address: [address] [place] [address] Performed By: #### 2 532-0 ####[facility] [id number] [place] [address] Magnesium SerPl-mCncon 09-11 Magnesium [Mass/Vol] 2.1 mg/dL Normal 1.7-2.3 [facility] Comment on above: Order Comment: Ronyi paige Type: BLOOD SPECIMENOrdering Facility: [facility] Address: [address] [place] [address] Performed By: #### 3 084-1, 47934-7, 75723-5 ####[facility] [id number] [place] [address] PT panel Coag (PPP)on 2021 INR Coag (PPP) [Relative time] 1.1 {INR} Normal 0.9-1.3 [facility] Comment on above: Order Comment: Aaliyah gibson Type: BLOOD SPECIMENOrdering Facility: [facility] Address: [address] [place] [address] Result Comment: Constanza min K Antagonist (VKA) Therapeutic Range: INR 2 to 3 (Target INR of 2.5)Note: For patients treated with VKA drugs, such as warfarin, the [place] [employer] 2012 Guideline recommends [...] al. Chest 2012, 141:7S-47SNishimkhalida RA, et al. [facility] 2017, 70: 252-289 Performed By: #### 3 4528-0, 54191-4 ####[facility] [id number] [place] [address] [place] PT Coag (PPP) [Time] 11.3 s Normal 9.7-13.0 [facility] Comment on above: Order Comment: Speci men Type: BLOOD SPECIMENOrdering Facility: [facility] Address: [address] [place] [address] Performed By: #### 3 4528-0, 56188-2 ####[facility] [id number] [place] [address] [place] Phosphate SerPl-mCncon 09-11 Phosphate [Mass/Vol] 3.5 mg/dL Normal 2.7-4.8 [facility] Comment on above: Order Comment: Ronyi paige Type: BLOOD SPECIMENOrdering Facility: [facility] Address: [address] [place] [address] Performed By: #### 2 777-1 ####[facility] [id number] [place] [address] [place] Urate SerPl-mCncon Urate [Mass/Vol] 9.2 mg/dL High 4.0-8.1 [facility] Comment on above: Order Comment: Speci men Type: BLOOD SPECIMENOrdering Facility: [facility] Address: [address] [place] [address] Performed By: #### 3 084-1, 43177-1, 98069-7 ####[facility] [id number] [place] [address] [place] aPTT PPPon 09-11-2021 aPTT Coag (PPP) [Time] 28.1 s Normal 23.0-32.4 [facility] Comment on above: Order Comment: Speci men Type: BLOOD SPECIMENOrdering Facility: [facility] Address: [address] [place] [address] Performed By: #### 3 4528-0, 53872-6 ####[facility] [id number] [address] [place] CNPNon 09-05-2021 CNPN Normal [facility] CBC panel Auto (Bld)on 09-04 Erythrocyte distribution width (RBC) [Ratio] 15.2 % High 11.5-15.0 [facility] Comment on above: Order Comment: Speci men Type: BLOOD SPECIMENOrdering Facility: [facility] Address: [address] [place] [address] Performed By: #### 5 8410-2 ####[facility] [id number] [address] [place] Hematocrit (Bld) [Volume fraction] 40.7 % Normal 39.0-51.0 [facility] Comment on above: Order Comment: Speci men Type: BLOOD SPECIMENOrdering Facility: [facility] Address: [address] [place] [address] Performed By: #### 5 8410-2 ####[facility] [id number] [place] [address] [place] Hemoglobin (Bld) [Mass/Vol] 13.1 g/dL Normal 13.0-17.0 [facility] Comment on above: Order Comment: Speci men Type: BLOOD SPECIMENOrdering Facility: [facility] Address: [address] [place], [place] [address] Performed By: #### 5 8410-2 ####[facility] LABIA [id number] [address] MCH (RBC) [Entitic mass] 29.5 pg Normal 26.0-34.0 [facility] Comment on above: Order Comment: Speci men Type: BLOOD SPECIMENOrdering Facility: [facility] Address: [address] [place], [place] [address] Performed By: #### 5 8410-2 ####[facility] LABIA [id number] [address] [place] MCHC (RBC) [Mass/Vol] 32.2 g/dL Normal 30.5-36.0 [facility] Comment on above: Order Comment: Speci men Type: BLOOD SPECIMENOrdering Facility: [facility] Address: [address] [place], [place] [address] Performed By: #### 5 8410-2 ####[facility] LABIA [id number] [address] [place] MCV (RBC) [Entitic vol] 91.7 fL Normal 80.0-100.0 [facility] Comment on above: Order Comment: Speci men Type: BLOOD SPECIMENOrdering Facility: [facility] Address: [address] [place] [address] Performed By: #### 5 8410-2 ####[facility] LABIA [id number] [address] [place] Nucleated RBC (Bld) [#/Vol] 10*3/uL Normal <0.01 [facility] Comment on above: Order Comment: Speci men Type: BLOOD SPECIMENOrdering Facility: [facility] Address: [address] [place], [place] [address] Performed By: #### 5 8410-2 ####[facility] LABCLIA [id number] [place] [address] [place] Platelet mean volume (Bld) [Entitic vol] 10.1 fL Normal 9.0-12.7 [facility] Comment on above: Order Comment: Speci men Type: BLOOD SPECIMENOrdering Facility: [facility] Address: [address] [place], [place] [address] Performed By: #### 5 8410-2 ####[facility] LABIA [id number] [place] [address] [place] Platelets (Bld) [#/Vol] 214 10*3/uL Normal 150-400 [facility] Comment on above: Order Comment: Speci men Type: BLOOD SPECIMENOrdering Facility: [facility] Address: [address] [place], [place] [address] Performed By: #### 5 8410-2 ####[facility] LABIA [id number] [place] [address] [place] RBC (Bld) [#/Vol] 4.44 10*6/uL Normal 4.20-6.00 [facility] Comment on above: Order Comment: Speci men Type: BLOOD SPECIMENOrdering Facility: [facility] Address: [address] [place], [place] [address] Performed By: #### 5 8410-2 ####[facility] LABIA [id number] [place] [address] [place] WBC (Bld) [#/Vol] 6.02 10*3/uL Normal 3.70-11.00 [facility] Comment on above: Order Comment: Speci men Type: BLOOD SPECIMENOrdering Facility: [facility] Address: [address] [place], [place] [address] Performed By: #### 5 8410-2 ####[facility] LABIA [id number] [address] [place] CNDSon 09-04-2021 CNDS Normal [facility] CONSULTon 09-04-2021 CONSULT Normal [facility] Comprehensive metabolic 2000 panelon 09-04-2021 Albumin [Mass/Vol] 3.5 g/dL Low 3.9-4.9 [facility] Comment on above: Order Comment: Speci men Type: BLOOD SPECIMENOrdering Facility: [facility] Address: [address] [place], [place] [address] Performed By: #### 2 432-8, ####[facility] LABCLIA [id number] [facility] [place] [address] [place] ALP [Catalytic activity/Vol] 72 U/L Normal 38-113 [facility] Comment on above: Order Comment: Speci men Type: BLOOD SPECIMENOrdering Facility: [facility] Address: [address] [place], [place] [address] Performed By: #### 2 432-8, ####[facility] LABCLIA [id number] [place] [address] [place] ALT [Catalytic activity/Vol] 56 U/L High 10-54 [facility] Comment on above: Order Comment: Speci men Type: BLOOD SPECIMENOrdering Facility: [facility] Address: [address] [place], [place] [address] Performed By: #### 2 4323-8, ####[facility] LABCLIA [id number] [facility] [place] [address] [place] Anion gap [Moles/Vol] 10 mmol/L Normal 9-18 [facility] Comment on above: Order Comment: Speci men Type: BLOOD SPECIMENOrdering Facility: [facility] Address: [address] [place], [place] [address] Performed By: #### 2 4323-8, 36990-1 ####[facility] LABCLIA [id number] [place] [address] [place] AST [Catalytic activity/Vol] 25 U/L Normal 14-40 [facility] Comment on above: Order Comment: Speci men Type: BLOOD SPECIMENOrdering Facility: [facility] Address: [address] [place], [place] [address] Performed By: #### 2 4323-8, 53583-6 ####[facility] LABCLIA [id number] [place] [address] [place] Bilirubin [Mass/Vol] 0.6 mg/dL Normal 0.2-1.3 [facility] Comment on above: Order Comment: Speci men Type: BLOOD SPECIMENOrdering Facility: [facility] Address: [address] [place] [address] Performed By: #### 2 4323-8, 46296-1 ####[facility] LABCLIA [id number] [place] [address] [place] Calcium [Mass/Vol] 9.3 mg/dL Normal 8.5-10.2 [facility] Comment on above: Order Comment: Speci men Type: BLOOD SPECIMENOrdering Facility: [facility] Address: [address] [place], [place] [address] Performed By: #### 2 4323-8, ####[facility] LABCLIA [id number] [place] [address] [place] Chloride [Moles/Vol] 99 mmol/L Normal 97-105 [facility] Comment on above: Order Comment: Speci men Type: BLOOD SPECIMENOrdering Facility: [facility] Address: [address] [place], [place] [address] Performed By: #### 2 4323-8, 78028-7 ####[facility] LABCLIA [id number] [place] [address] [place] CO2 [Moles/Vol] 30 mmol/L Normal 22-30 [facility] Comment on above: Order Comment: Speci men Type: BLOOD SPECIMENOrdering Facility: [facility] Address: [address] [place], [place] [address] Performed By: #### 2 4328, ####[facility] LABCLIA [id number] [place] [id number] [place] Creatinine [Mass/Vol] 1.03 mg/dL Normal 0.73-1.22 [facility] Comment on above: Order Comment: Speci men Type: BLOOD SPECIMENOrdering Facility: [facility] Address: [address] [place], [place] [address] Performed By: #### 2 4328, ####[facility] LABIA [id number] [place] [address] [place] ESTIMATED GLOMERULAR FILTRATION RATE 85 mL/min/1.73m??? Normal >=60 [facility] Comment on above: Order Comment: Speci men Type: BLOOD SPECIMENOrdering Facility: [facility] Address: [address] [place], [place] [address] Result Comment: Laurita mated Glomerular Filtration Rate [...] actual GFR. Performed By: #### 2 4323-8, ####[facility] LABIA [id number] [place] [id number] [place] Glucose [Mass/Vol] 192 mg/dL High 74-99 [facility] Comment on above: Order Comment: Speci men Type: BLOOD SPECIMENOrdering Facility: [facility] Address: [address] [place], [place] [address] Result Comment: The [place] [employer] (ADA) provides guidance for cutoff [...] Standards of Medical Care in Diabetes 2016, [place] [employer]. Diabetes Care. 2016.39(Suppl 1). Performed By: #### 2 4323-8, ####[facility] LABIA [id number] [place] [address] [place] Potassium [Moles/Vol] 3.2 mmol/L Low 3.7-5.1 [facility] Comment on above: Order Comment: Speci men Type: BLOOD SPECIMENOrdering Facility: [facility] Address: [address] [place], [place] [address] Performed By: #### 2 4323-8, ####[facility] LABIA [id number] [place] [address] [place] Protein [Mass/Vol] 6.6 g/dL Normal 6.3-8.0 [facility] Comment on above: Order Comment: Speci men Type: BLOOD SPECIMENOrdering Facility: [facility] Address: [address] [place], [place] [address] Performed By: #### 2 4323-8, ####[facility] LABIA [id number] [place] [address] [place] Sodium [Moles/Vol] 139 mmol/L Normal 136-144 [facility] Comment on above: Order Comment: Speci men Type: BLOOD SPECIMENOrdering Facility: [facility] Address: [address] Performed By: #### 2 4323-8, 15309-4 ####[facility] LABCLIA [id number] [place] [address] [place] Urea nitrogen [Mass/Vol] 15 mg/dL Normal 9-24 [facility] Comment on above: Order Comment: Speci men Type: BLOOD SPECIMENOrdering Facility: [facility] Address: [address] [place] [address] Performed By: #### 2 4323-8, ####[facility] LABCLIA [id number] [place] [address] [place] Magnesium SerPl-mCncon 09-04 Magnesium [Mass/Vol] 2.2 mg/dL Normal 1.7-2.3 [facility] Comment on above: Order Comment: Speci men Type: BLOOD SPECIMENOrdering Facility: [facility] Address: [address] [place], [place] [address] Performed By: #### 2 4323-8, ####[facility] LABIA [id number] [place] [address] [place] PT EDon 09-04-2021 PT ED Normal [facility] CASE MANAGEMon 09-03-2021 CASE MANAGEM Normal [facility] CBC panel Auto (Bld)on 09-03 Erythrocyte distribution width (RBC) [Ratio] 15.4 % High 11.5-15.0 [facility] Comment on above: Order Comment: Speci men Type: BLOOD SPECIMENOrdering Facility: [facility] Address: [address] [place], [place] [address] Performed By: #### 5 8410-2 ####[facility] LABIA [id number] [place] [address] [place] Hematocrit (Bld) [Volume fraction] 43.8 % Normal 39.0-51.0 [facility] Comment on above: Order Comment: Speci men Type: BLOOD SPECIMENOrdering Facility: [facility] Address: [address] [place], [place] [address] Performed By: #### 5 8410-2 ####[facility] [id number] [address] [place] Hemoglobin (Bld) [Mass/Vol] 13.9 g/dL Normal 13.0-17.0 [facility] Comment on above: Order Comment: Speci men Type: BLOOD SPECIMENOrdering Facility: [facility] Address: [address] [place], [place] [address] Performed By: #### 5 8410-2 ####[facility] [id number] [address] [place] MCH (RBC) [Entitic mass] 29.6 pg Normal 26.0-34.0 [facility] Comment on above: Order Comment: Speci men Type: BLOOD SPECIMENOrdering Facility: [facility] Address: [address] [place], [place] [address] Performed By: #### 5 8410-2 ####[facility] [id number] [address] [place] MCHC (RBC) [Mass/Vol] 31.7 g/dL Normal 30.5-36.0 [facility] Comment on above: Order Comment: Speci men Type: BLOOD SPECIMENOrdering Facility: [facility] Address: [address] [place], [place] [address] Performed By: #### 5 8410-2 ####[facility] [id number] [place] [address] [place] MCV (RBC) [Entitic vol] 93.2 fL Normal 80.0-100.0 C [facility] Comment on above: Order Comment: Speci men Type: BLOOD SPECIMENOrdering Facility: [facility] Address: [address] [place], [place] [address] Performed By: #### 5 8410-2 ####[facility] LABCLIA [id number] [place] [address] [place] Nucleated RBC (Bld) [#/Vol] 10*3/uL Normal <0.01 [facility] Comment on above: Order Comment: Speci men Type: BLOOD SPECIMENOrdering Facility: [facility] Address: [address] [place], [place] [address] Performed By: #### 5 8410-2 ####[facility] LABIA [id number] [place] [address] [place] Platelet mean volume (Bld) [Entitic vol] 9.9 fL Normal 9.0-12.7 [facility] Comment on above: Order Comment: Speci men Type: BLOOD SPECIMENOrdering Facility: [facility] Address: [address] [place] [address] Performed By: #### 5 8410-2 ####[facility] LABIA [id number] [place] [address] [place] Platelets (Bld) [#/Vol] 212 10*3/uL Normal 150-400 [facility] Comment on above: Order Comment: Speci men Type: BLOOD SPECIMENOrdering Facility: [facility] Address: [address] [place], [place] [address] Performed By: #### 5 8410-2 ####[facility] LABIA [id number] [place] [address] [place] RBC (Bld) [#/Vol] 4.70 10*6/uL Normal 4.20-6.00 [facility] Comment on above: Order Comment: Speci men Type: BLOOD SPECIMENOrdering Facility: [facility] Address: [address] [place], [place] [address] Performed By: #### 5 8410-2 ####[facility] LABIA [id number] [address] OF [place] WBC (Bld) [#/Vol] 5.51 10*3/uL Normal 3.70-11.00 [facility] Comment on above: Order Comment: Speci men Type: BLOOD SPECIMENOrdering Facility: [facility] Address: [address] [place] [address] Performed By: #### 5 8410-2 ####[facility] LABCLIA [id number] [address] OF [facility] Comprehensive metabolic 2000 panelon 09-03-2021 Albumin [Mass/Vol] 3.7 g/dL Low 3.9-4.9 [facility] Comment on above: Order Comment: Speci men Type: BLOOD SPECIMENOrdering Facility: [facility] Address: [address] [place] [address] Performed By: #### 2 4323-8, 75632-3, 49730-1 ####[facility] LABIA [id number] [address] [place] ALP [Catalytic activity/Vol] 83 U/L Normal 38-113 [facility] Comment on above: Order Comment: Speci men Type: BLOOD SPECIMENOrdering Facility: [facility] Address: [address] [place], [place] [address] Performed By: #### 2 4323-8, 17487-4, 56579-5 ####[facility] LABCLIA [id number] [address] OF [facility] ALT [Catalytic activity/Vol] 65 U/L High 10-54 [facility] Comment on above: Order Comment: Speci men Type: BLOOD SPECIMENOrdering Facility: [facility] Address: [address] [place], [place] [address] Performed By: #### 2 4323-8, 33276-0, 57401-5 ####[facility] [place] LABCLIA [id number] [place] [id number] [place] Anion gap [Moles/Vol] 9 mmol/L Normal 9-18 [facility] Comment on above: Order Comment: Speci men Type: BLOOD SPECIMENOrdering Facility: [facility] Address: [address] [place] [address] Performed By: #### 2 4323-8, 36922-7, 02177-9 ####[facility] LABCLIA [id number] [place] [address] [place] AST [Catalytic activity/Vol] 35 U/L Normal 14-40 [facility] Comment on above: Order Comment: Speci men Type: BLOOD SPECIMENOrdering Facility: [facility] Address: [address] [place], [place] [address] Performed By: #### 2 4323-8, 57207-4, ####[facility] LABCLIA [id number] [place] [address] [place] Bilirubin [Mass/Vol] 0.6 mg/dL Normal 0.2-1.3 [facility] Comment on above: Order Comment: Speci men Type: BLOOD SPECIMENOrdering Facility: [facility] Address: [address] [place], [place] [address] Performed By: #### 2 4323-8, 98554-1, ####[facility] LABCLIA [id number] [place] [address] [place] Calcium [Mass/Vol] 9.3 mg/dL Normal 8.5-10.2 [facility] Comment on above: Order Comment: Speci men Type: BLOOD SPECIMENOrdering Facility: [facility] Address: [address] [place] [address] Performed By: #### 2 4323-8, 72223-6, 34144-9 ####[facility] LABCLIA [id number] [place] [address] [place] Chloride [Moles/Vol] 102 mmol/L Normal 97-105 [facility] Comment on above: Order Comment: Speci men Type: BLOOD SPECIMENOrdering Facility: [facility] Address: [address] [place], [place] [address] Performed By: #### 2 4323-8, 28684-2, ####[facility] LABCLIA [id number] [place] [address] [place] CO2 [Moles/Vol] 32 mmol/L High 22-30 [facility] Comment on above: Order Comment: Speci men Type: BLOOD SPECIMENOrdering Facility: [facility] Address: [address] [place] [address] Performed By: #### 2 4323-8, 35876-9, ####[facility] LABCLIA [id number] [place] [address] [place] Creatinine [Mass/Vol] 1.08 mg/dL Normal 0.73-1.22 [facility] Comment on above: Order Comment: Speci men Type: BLOOD SPECIMENOrdering Facility: [facility] Address: [address] [place] [address] Performed By: #### 2 4323-8, 45213-9, ####[facility] LABCLIA [id number] [place] [address] [place] ESTIMATED GLOMERULAR FILTRATION RATE 80 mL/min/1.73m??? Normal >=60 [facility] Comment on above: Order Comment: Speci men Type: BLOOD SPECIMENOrdering Facility: [facility] Address: [address] [place], [place] [address] Result Comment: Laurita mated Glomerular Filtration Rate [...] actual GFR. Performed By: #### 2 4323-8, 93524-5, ####[facility] LABCLIA [id number] [address] [address] [place] Glucose [Mass/Vol] 98 mg/dL Normal 74-99 [facility] Comment on above: Order Comment: Speci men Type: BLOOD SPECIMENOrdering Facility: [facility] Address: [address] [place] [address] Result Comment: The [place] [employer] Association (ADA) provides guidance for cutoff [...] Standards of Medical Care in Diabetes 2016, [place] [employer]. Diabetes Care. 2016.39(Suppl 1). Performed By: #### 2 4323-8, 38840-3, ####[facility] LABCLIA [id number] [address] [address] [place] Potassium [Moles/Vol] 3.8 mmol/L Normal 3.7-5.1 [facility] Comment on above: Order Comment: Speci men Type: BLOOD SPECIMENOrdering Facility: [facility] Address: [address] [place] [address] Performed By: #### 2 4323-8, 05341-0, ####[facility] LABCLIA [id number] [address] [address] [place] Protein [Mass/Vol] 6.9 g/dL Normal 6.3-8.0 [facility] Comment on above: Order Comment: Speci men Type: BLOOD SPECIMENOrdering Facility: [facility] Address: [address] [place], [place] [address] Performed By: #### 2 4323-8, 05849-1, ####[facility] LABCLIA [id number] [place] [address] [place] Sodium [Moles/Vol] 143 mmol/L Normal 136-144 [facility] Comment on above: Order Comment: Speci men Type: BLOOD SPECIMENOrdering Facility: [facility] Address: [address] [place] [address] Performed By: #### 2 4323-8, 13418-0, ####[facility] LABCLIA [id number] [place] [address] [place] Urea nitrogen [Mass/Vol] 16 mg/dL Normal 9-24 [facility] Comment on above: Order Comment: Speci men Type: BLOOD SPECIMENOrdering Facility: [facility] Address: [address] [place] [address] Performed By: #### 2 4323-8, 79003-4, ####[facility] LABCLIA [id number] [address] [place] ED NOTEon 09-03-2021 ED NOTE HNO ID: [id number] Author: Cinthya Gimenez RN Service: Emergency Medicine Author Type: Registered Nurse Type: ED Notes Filed: 09/02/2021 10:46 PM Note Text: Report given to [place] LOPEZ Normal [facility] Iron and Iron binding capaci ty panelon 09-03-2021 Iron [Mass/Vol] 42 ug/dL Normal 41-186 [facility] Comment on above: Order Comment: Speci men Type: BLOOD SPECIMENOrdering Facility: [facility] Address: [address] [place], [place] [address] Performed By: #### 2 4323-8, 61277-3, ####[facility] LABIA [id number] [place] [address] [place] Iron binding capacity [Mass/Vol] 261 ug/dL Normal 232-386 [facility] Comment on above: Order Comment: Speci men Type: BLOOD SPECIMENOrdering Facility: [facility] Address: [address] [place] [address] Performed By: #### 2 4323-8, 67490-5, 74183-8 ####[facility] [id number] [place] [address] [place] Iron/TIBC [Molar ratio] 16.1 % Normal 15.0-57.0 C [facility] Comment on above: Order Comment: Speci men Type: BLOOD SPECIMENOrdering Facility: [facility] Address: [address] [place] [address] Performed By: #### 2 4323-8, 23651-5, ####[facility] [id number] [place] [address] [place] Magnesium SerPl-mCncon 09-03 Magnesium [Mass/Vol] 2.4 mg/dL High 1.7-2.3 [facility] Comment on above: Order Comment: Speci men Type: BLOOD SPECIMENOrdering Facility: [facility] Address: [address] [place], [place] [address] Performed By: #### 2 4323-8, 20339-4, 62784-1 ####[facility] [id number] [place] [id number] [place] THERAPY NTon 09-03-2021 THERAPY NT Normal [facility] THERAPY NT Normal [facility] CBC W Auto Differential pane l (Bld)on 09-02-2021 Basophils (Bld) [#/Vol] 0.03 10*3/uL Normal <0.11 [facility] Comment on above: Order Comment: Speci men Type: BLOOD SPECIMENOrdering Facility: [facility] Address: [address] [place], [place] [address] Performed By: #### 5 7021-8 ####[facility] [id number] [address] OF [facility] Basophils/100 WBC (Bld) 0.5 % Normal [facility] Comment on above: Order Comment: Speci men Type: BLOOD SPECIMENOrdering Facility: [facility] Address: [address] [place], [place] [address] Performed By: #### 5 7021-8 ####[facility] [place] [id number] [place] [address] [place] Differential cell count method Nom (Bld) Auto Normal [facility] Comment on above: Order Comment: Speci men Type: BLOOD SPECIMENOrdering Facility: [facility] Address: [address] [place], [place] [address] Performed By: #### 5 7021-8 ####[facility] [id number] [place] [address] [place] Eosinophils (Bld) [#/Vol] 10*3/uL Normal <0.46 [facility] Comment on above: Order Comment: Speci men Type: BLOOD SPECIMENOrdering Facility: [facility] Address: [address] [place], [place] [address] Performed By: #### 5 7021-8 ####[facility] [place] [id number] [address] OF [place] Eosinophils/100 WBC (Bld) 0.3 % Normal [facility] Comment on above: Order Comment: Speci men Type: BLOOD SPECIMENOrdering Facility: [facility] Address: [address] [place], [place] [address] Performed By: #### 5 7021-8 ####[facility] [place] [id number] [address] STATES OF [facility] Erythrocyte distribution width (RBC) [Ratio] 15.2 % High 11.5-15.0 [facility] Comment on above: Order Comment: Speci men Type: BLOOD SPECIMENOrdering Facility: [facility] Address: [address] [place] [address] Performed By: #### 5 7021-8 ####[facility] [place] [id number] [place] [address] OF [facility] Hematocrit (Bld) [Volume fraction] 40.8 % Normal 39.0-51.0 [facility] Comment on above: Order Comment: Speci men Type: BLOOD SPECIMENOrdering Facility: [facility] Address: [address] [place] [address] Performed By: #### 5 7021-8 ####[facility] [place] [id number] [place] [address] [place] OF [facility] Hemoglobin (Bld) [Mass/Vol] 13.5 g/dL Normal 13.0-17.0 [facility] Comment on above: Order Comment: Speci men Type: BLOOD SPECIMENOrdering Facility: [facility] Address: [address] [place] [address] Performed By: #### 5 7021-8 ####[facility] [place] [id number] [place] [address] OF [facility] IMMATURE GRAN % 0.3 % Normal [facility] Comment on above: Order Comment: Speci men Type: BLOOD SPECIMENOrdering Facility: [facility] Address: [address] [place] [address] Performed By: #### 5 7021-8 ####[facility] [place] [id number] [place] [address] [place] IMMATURE GRAN ABS <0.03 Normal <0.10 [facility] Comment on above: Order Comment: Speci men Type: BLOOD SPECIMENOrdering Facility: [facility] Address: [address] [place], [place] [address] Performed By: #### 5 7021-8 ####[facility] [place] [id number] [place] [address] Lymphocytes (Bld) [#/Vol] 1.42 10*3/uL Normal 1.00-4.00 [facility] Comment on above: Order Comment: Speci men Type: BLOOD SPECIMENOrdering Facility: [facility] Address: [address] [place], [place] [address] Performed By: #### 5 7021-8 ####[facility] [facility] [id number] [place] [address] OF [facility] Lymphocytes/100 WBC (Bld) 21.7 % Normal [facility] Comment on above: Order Comment: Speci men Type: BLOOD SPECIMENOrdering Facility: [facility] Address: [address] [place], [place] [address] Performed By: #### 5 7021-8 ####[facility] [id number] [place] [address] OF [place] MCH (RBC) [Entitic mass] 29.8 pg Normal 26.0-34.0 [facility] Comment on above: Order Comment: Speci men Type: BLOOD SPECIMENOrdering Facility: [facility] Address: [address] [place], [place] [address] Performed By: #### 5 7021-8 ####[facility] [id number] [address] [place] MCHC (RBC) [Mass/Vol] 33.1 g/dL Normal 30.5-36.0 [facility] Comment on above: Order Comment: Speci men Type: BLOOD SPECIMENOrdering Facility: [facility] Address: [address] [place], [place] [address] Performed By: #### 5 7021-8 ####[facility] [id number] [place] [address] [place] MCV (RBC) [Entitic vol] 90.1 fL Normal 80.0-100.0 C [facility] Comment on above: Order Comment: Speci men Type: BLOOD SPECIMENOrdering Facility: [facility] Address: [address] [place] [address] Performed By: #### 5 7021-8 ####[facility] [place] [facility] [id number] [place] [address] [place] Monocytes (Bld) [#/Vol] 0.42 10*3/uL Normal <0.87 [facility] Comment on above: Order Comment: Speci men Type: BLOOD SPECIMENOrdering Facility: [facility] Address: [address] [place] [address] Performed By: #### 5 7021-8 ####[facility] [place] [facility] [id number] [place] [address] [place] Monocytes/100 WBC (Bld) 6.4 % Normal C [facility] Comment on above: Order Comment: Speci men Type: BLOOD SPECIMENOrdering Facility: [facility] Address: [address] [place] [address] Performed By: #### 5 7021-8 ####[facility] [id number] [place] [address] [place] Neutrophils (Bld) [#/Vol] 4.62 10*3/uL Normal 1.45-7.50 [facility] Comment on above: Order Comment: Speci men Type: BLOOD SPECIMENOrdering Facility: [facility] Address: [address] [place] [address] Performed By: #### 5 7021-8 ####[facility] [id number] [place] [address] [place] Neutrophils/100 WBC (Bld) 70.8 % Normal [facility] Comment on above: Order Comment: Speci men Type: BLOOD SPECIMENOrdering Facility: [facility] Address: [address] [place], [place] [address] Performed By: #### 5 7021-8 ####[facility] [id number] [place] [address] [place] Nucleated RBC (Bld) [#/Vol] 10*3/uL Normal <0.01 [facility] Comment on above: Order Comment: Speci men Type: BLOOD SPECIMENOrdering Facility: [facility] Address: [address] [place], [place] [address] Performed By: #### 5 7021-8 ####[facility] [place] [facility] [id number] [place] [address] [place] Nucleated RBC/100 WBC (Bld) [Ratio] 0.0 /100 WBC Normal [facility] Comment on above: Order Comment: Speci men Type: BLOOD SPECIMENOrdering Facility: [facility] Address: [address] [place], [place] [address] Performed By: #### 5 7021-8 ####[facility] [id number] [place] [address] [place] Platelet mean volume (Bld) [Entitic vol] 9.8 fL Normal 9.0-12.7 [facility] Comment on above: Order Comment: Speci men Type: BLOOD SPECIMENOrdering Facility: [facility] Address: [address] [place] [address] Performed By: #### 5 7021-8 ####[facility] [place] [id number] [place] [address] [place] Platelets (Bld) [#/Vol] 206 10*3/uL Normal 150-400 [facility] Comment on above: Order Comment: Speci men Type: BLOOD SPECIMENOrdering Facility: [facility] Address: [address] [place] [address] Performed By: #### 5 7021-8 ####[facility] [id number] [place] [address] [place] RBC (Bld) [#/Vol] 4.53 10*6/uL Normal 4.20-6.00 [facility] Comment on above: Order Comment: Speci men Type: BLOOD SPECIMENOrdering Facility: [facility] Address: [address] [place] [address] Performed By: #### 5 7021-8 ####[facility] [place] [id number] [place] [address] WBC (Bld) [#/Vol] 6.53 10*3/uL Normal 3.70-11.00 [facility] Comment on above: Order Comment: Speci men Type: BLOOD SPECIMENOrdering Facility: [facility] Address: [address] [place] [address] Performed By: #### 5 7021-8 ####[facility] [place] [id number] [place] [address] [place] CNNURSEon 09-02-2021 CNNURSE Normal [facility] CNOVSPon 09-02-2021 CNOVSP Normal [facility] CT CHEST W IVCON PEon 2021 CT CHEST W IVCON PE Normal [facility] Comprehensive metabolic 2000 panelon 09-02-2021 Albumin [Mass/Vol] 4.1 g/dL Normal 3.9-4.9 [facility] Comment on above: Order Comment: Speci men Type: BLOOD SPECIMENOrdering Facility: [facility] Address: [address] [place] [address] Performed By: #### 2 4323-8 ####[facility] [id number] [place] [address] [place] ALP [Catalytic activity/Vol] 82 U/L Normal 38-113 [facility] Comment on above: Order Comment: Speci men Type: BLOOD SPECIMENOrdering Facility: [facility] Address: [address] [place], [place] [address] Performed By: #### 2 4323-8 ####[facility] [id number] [address] [place] ALT [Catalytic activity/Vol] 79 U/L High 10-54 [facility] Comment on above: Order Comment: Speci men Type: BLOOD SPECIMENOrdering Facility: [facility] Address: [address] [place], [place] [address] Performed By: #### 2 4323-8 ####[facility] [place] [id number] [place] [address] [place] Anion gap [Moles/Vol] 10 mmol/L Normal 9-18 [facility] Comment on above: Order Comment: Speci men Type: BLOOD SPECIMENOrdering Facility: [facility] Address: [address] [place] [address] Performed By: #### 2 4323-8 ####[facility] [place] [id number] [place] [address] [place] AST [Catalytic activity/Vol] 50 U/L High 14-40 [facility] Comment on above: Order Comment: Speci men Type: BLOOD SPECIMENOrdering Facility: [facility] Address: [address] [place], [place] [address] Performed By: #### 2 4323-8 ####[facility] [id number] [place] [address] [place] Bilirubin [Mass/Vol] 1.0 mg/dL Normal 0.2-1.3 [facility] Comment on above: Order Comment: Speci men Type: BLOOD SPECIMENOrdering Facility: [facility] Address: [address] [place], [place] [address] Performed By: #### 2 4323-8 ####[facility] [id number] [place] [address] [place] Calcium [Mass/Vol] 9.1 mg/dL Normal 8.5-10.2 [facility] Comment on above: Order Comment: Speci men Type: BLOOD SPECIMENOrdering Facility: [facility] Address: [address] [place] [address] Performed By: #### 2 4323-8 ####[facility] [id number] [place] [address] [place] Chloride [Moles/Vol] 107 mmol/L High 97-105 [facility] Comment on above: Order Comment: Speci men Type: BLOOD SPECIMENOrdering Facility: [facility] Address: [address] [place] [address] Performed By: #### 2 4323-8 ####[facility] [id number] [place] [address] [place] CO2 [Moles/Vol] 25 mmol/L Normal 22-30 [facility] Comment on above: Order Comment: Speci men Type: BLOOD SPECIMENOrdering Facility: [facility] Address: [address] [place] [address] Performed By: #### 2 4323-8 ####[facility] [id number] [place] [address] [place] Creatinine [Mass/Vol] 1.07 mg/dL Normal 0.73-1.22 [facility] Comment on above: Order Comment: Speci men Type: BLOOD SPECIMENOrdering Facility: [facility] Address: [address] [place] [address] Performed By: #### 2 4323-8 ####[facility] [id number] [place] [address] [place] ESTIMATED GLOMERULAR FILTRATION RATE 81 mL/min/1.73m??? Normal >=60 [facility] Comment on above: Order Comment: Aaliyah gibson Type: BLOOD SPECIMENOrdering Facility: [facility] Address: [address] [place] [address] Result Comment: Laurita mated Glomerular Filtration Rate [...] actual GFR. Performed By: #### 2 4323-8 ####[facility] [id number] [place] [address] [place] Glucose [Mass/Vol] 127 mg/dL High 74-99 [facility] Comment on above: Order Comment: Aaliyah gibson Type: BLOOD SPECIMENOrdering Facility: [facility] Address: [address] [place] [address] Result Comment: The [place] [employer] (ADA) provides guidance for cutoff [...] Standards of Medical Care in Diabetes 2016, [place] [employer]. Diabetes Care. 2016.39(Suppl 1). Performed By: #### 2 4323-8 ####[facility] [id number] [place] [address] [place] Potassium [Moles/Vol] 3.6 mmol/L Low 3.7-5.1 [facility] Comment on above: Order Comment: Aaliyah gibson Type: BLOOD SPECIMENOrdering Facility: [facility] Address: [address] [place], [place] [address] Performed By: #### 2 4323-8 ####[facility] [id number] [place] [address] [place] Protein [Mass/Vol] 6.8 g/dL Normal 6.3-8.0 [facility] Comment on above: Order Comment: Speci men Type: BLOOD SPECIMENOrdering Facility: [facility] Address: [address] [place], [place] [address] Performed By: #### 2 4323-8 ####[facility] [place] [facility] [id number] [place] [address] [place] Sodium [Moles/Vol] 142 mmol/L Normal 136-144 [facility] Comment on above: Order Comment: Speci men Type: BLOOD SPECIMENOrdering Facility: [facility] Address: [address] [place] [address] Performed By: #### 2 4323-8 ####[facility] [place] [facility] [id number] [place] [address] [place] Urea nitrogen [Mass/Vol] 14 mg/dL Normal 9-24 [facility] Comment on above: Order Comment: Speci men Type: BLOOD SPECIMENOrdering Facility: [facility] Address: [address] [place], [place] [address] Performed By: #### 2 4323-8 ####[facility] [id number] [place] [address] [place] D dimer FEU PPP-mCncon 09-02 Fibrin D-dimer FEU (PPP) [Mass/Vol] 1920 ng/mL FEU High <500 [facility] Comment on above: Order Comment: Speci men Type: BLOOD SPECIMENOrdering Facility: [facility] Address: [address] [place], [place] [address] Performed By: #### 4 8065-7 ####[facility] LABCLIA [id number] [place] [id number] [place] ED NOTEon 09-02-2021 ED NOTE HNO ID: [id number] Author: Lisa Bright RN Service: ? 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 Normal [facility] ED PROV NOTEon 09-02-2021 ED PROV NOTE Normal [facility] Ferritin SerPl-mCncon 2021 Ferritin [Mass/Vol] 332.0 ng/mL Normal 30.3-565.7 [facility] Comment on above: Order Comment: Speci men Type: BLOOD SPECIMENOrdering Facility: [facility] Address: [address] [place] [address] Performed By: #### 3 034-6, 2276-4 ####[facility] LABIA [id number] [place] [address] [place] Fibrin D-dimer FEU (PPP) [Ma ss/Vol]on 09-02-2021 D DIMER AGE-RELATED CUTOFF 570 ng/mL FEU Normal [facility] Comment on above: Order Comment: Speci men Type: BLOOD SPECIMENOrdering Facility: [facility] Address: [address] [place] [address] Performed By: #### 4 8065-7 ####[facility] LABCLIA [id number] [place] [address] [place] HIGH SENSITIVITY TROPONIN To n 09-02-2021 HIGH SENSITIVITY BEAU 33 ng/L High <12 [facility] Comment on above: Order Comment: Aaliyah gibson Type: BLOOD SPECIMENOrdering Facility: [facility] Address: [address] [place] [address] Result Comment: When assessing risk for acute [...] MACE. Performed By: #### 5 5454-3, HSTNT ####[facility] LABCLIA [id number] [address] [place] HIGH SENSITIVITY BEAU 33 ng/L High <12 [facility] Comment on above: Order Comment: Aaliyah gibson Type: BLOOD SPECIMENOrdering Facility: [facility] Address: [address] [place] [address] Result Comment: When assessing risk for acute [...] day MACE. Performed By: #### H STNT ####[facility] LABCLIA [id number] [place] [address] [place] HISTORY PHYSICALon HISTORY PHYSICAL Normal [facility] HbA1c (Bld)on 09-02-2021 Average glucose Estimated from glycated hemoglobin (Bld) [Mass/Vol] 137 mg/dL Normal [facility] Comment on above: Order Comment: Aaliyah gibson Type: BLOOD SPECIMENOrdering Facility: [facility] Address: [address] [place] [address] Result Comment: eAG: (Estimated average glucose) is a calculated value from HgbA1c and is solar sales representative and assessor of the average blood glucose level in the last 2-3 month period. Performed By: #### 5 5454-3, HSTNT ####[facility] [id number] [place] [address] [place] HbA1c (Bld) [Mass fraction] 6.4 % High 4.3-5.6 [facility] Comment on above: Order Comment: Speci men Type: BLOOD SPECIMENOrdering Facility: [facility] Address: [address] [place] [address] Result Comment: Amer [place] Diabetes Association guidelines indicate that patients with HgbA1c in the range 5.7-6.4% are at increased risk for development of diabetes, and intervention by lifestyle modification may be beneficial. HgbA1c greater or equal to 6.5% is considered diagnostic of diabetes. Performed By: #### 5 5454-3, HSTNT ####[facility] [id number] [place] [address] [place] LDH SerPl-cCncon 09-02-2021 LDH [Catalytic activity/Vol] 336 U/L High 135-225 [facility] Comment on above: Order Comment: Speci men Type: BLOOD SPECIMENOrdering Facility: [facility] Address: [address] [place] [address] Performed By: #### 2 532-0 ####[facility] [id number] [place] [address] [place] Magnesium SerPl-mCncon 09-02 Magnesium [Mass/Vol] 2.2 mg/dL Normal 1.7-2.3 [facility] Comment on above: Order Comment: Speci men Type: BLOOD SPECIMENOrdering Facility: [facility] Address: [address] [place] [address] Performed By: #### 3 3762-6, 3016-3, 85382-2 ####[facility] [id number] [place] [address] [place] NT-proBNP SerPl-mCncon 09-02 Natriuretic peptide.B prohormone N-Terminal [Mass/Vol] 3442 pg/mL High <125 [facility] Comment on above: Order Comment: Aaliyah gibson Type: BLOOD SPECIMENOrdering Facility: [facility] Address: [address] [place], [place] [address] Performed By: #### 3 3762-6, 3016-3, 46743-2 ####[facility] LABCLIA [id number] [address] OF [facility] No Panel Informationon 09-02 [facility] PT panel Coag (PPP)on 2021 INR Coag (PPP) [Relative time] 1.1 {INR} Normal 0.9-1.3 [facility] Comment on above: Order Comment: Aaliyah gibson Type: BLOOD SPECIMENOrdering Facility: [facility] Address: [address] [place] [address] Result Comment: Constanza min K Antagonist (VKA) Therapeutic Range: INR 2 to 3 (Target INR of 2.5)Note: For patients treated with VKA drugs, such as warfarin, the [place] [employer] 2012 Guideline recommends [...] 70: 252-289 Performed By: #### 3 4528-0, 68553-2 ####[facility] LABCLIA [id number] [address] [place] PT Coag (PPP) [Time] 12.0 s Normal 9.7-13.0 [facility] Comment on above: Order Comment: Speci men Type: BLOOD SPECIMENOrdering Facility: [facility] Address: [address] [place] [address] Performed By: #### 3 4528-0, 71072-9 ####[facility] LABIA [id number] [place] [address] [place] SARS-CoV-2 RNA Resp Ql SANDOVAL+p robeon 09-02-2021 SARS-CoV-2 (COVID-19) RNA SANDOVAL+probe Ql (Resp) COVID 19 RESULT: SARS-CoV-2 (Agent of COVID-19) Not Detected by RT-PCR or equivalent method. This test has been authorized by FDA under an Emergency Use Authorization (EUA). Normal [facility] Comment on above: Performed By: #### 9 4500-6 ####[facility] LABIA [id number] [place] [address] [place] TSH SerPl-aCncon 09-02-2021 TSH Qn 1.460 m[IU]/L Normal 0.270-4.20 0 [facility] Comment on above: Order Comment: Speci men Type: BLOOD SPECIMENOrdering Facility: [facility] Address: [address] [place] [address] Performed By: #### 3 3762-6, 3016-3, 72183-2 ####[facility] LABIA [id number] [place] [address] [place] Transferrin SerPl-mCncon Transferrin [Mass/Vol] 234 mg/dL Normal 200-360 [facility] Comment on above: Order Comment: Speci men Type: BLOOD SPECIMENOrdering Facility: [facility] Address: [address] [place] [address] Performed By: #### 3 034-6, 2276-4 ####[facility] LABCLIA [id number] [place] [address] [place] XR CHEST 2V FRONTAL/LATon XR CHEST 2V FRONTAL/LAT Normal C [facility] aPTT PPPon 09-02-2021 aPTT Coag (PPP) [Time] 28.7 s Normal 23.0-32.4 Cl [facility] Comment on above: Order Comment: Speci men Type: BLOOD SPECIMENOrdering Facility: [facility] Address: [address] [place] [address] Performed By: #### 3 4528-0, 74090-6 ####[facility] [id number] [place] [address] [place] CNPNon 09-01-2021 CNPN Normal [facility] CNNURSEon 08-27-2021 CNNURSE Normal [facility] CBC W Auto Differential pane l (Bld)on 08-19-2021 Basophils (Bld) [#/Vol] 0.04 10*3/uL Normal <0.11 [facility] Comment on above: Order Comment: Speci men Type: BLOOD SPECIMENOrdering Facility: [facility] Address: [address] [place] [address] Performed By: #### 5 7021-8 ####[facility] [id number] [address] [place] Basophils/100 WBC (Bld) 0.7 % Normal C [facility] Comment on above: Order Comment: Speci men Type: BLOOD SPECIMENOrdering Facility: [facility] Address: [address] [place] [address] Performed By: #### 5 7021-8 ####[facility] [id number] [place] [address] [place] Differential cell count method Nom (Bld) Auto Normal [facility] Comment on above: Order Comment: Speci men Type: BLOOD SPECIMENOrdering Facility: [facility] Address: [address] [place] [address] Performed By: #### 5 7021-8 ####[facility] [id number] [place] [address] [place] Eosinophils (Bld) [#/Vol] 0.15 10*3/uL Normal <0.46 [facility] Comment on above: Order Comment: Speci men Type: BLOOD SPECIMENOrdering Facility: [facility] Address: [address] [place] [address] Performed By: #### 5 7021-8 ####[facility] [place] [id number] [place] [address] [place] Eosinophils/100 WBC (Bld) 2.5 % Normal [facility] Comment on above: Order Comment: Speci men Type: BLOOD SPECIMENOrdering Facility: [facility] Address: [address] [place] [address] Performed By: #### 5 7021-8 ####[facility] [place] [id number] [place] [address] [place] Erythrocyte distribution width (RBC) [Ratio] 15.0 % Normal 11.5-15.0 [facility] Comment on above: Order Comment: Speci men Type: BLOOD SPECIMENOrdering Facility: [facility] Address: [address] [place], [place] [address] Performed By: #### 5 7021-8 ####[facility] [place] [id number] [place] [address] [place] Hematocrit (Bld) [Volume fraction] 49.1 % Normal 39.0-51.0 [facility] Comment on above: Order Comment: Speci men Type: BLOOD SPECIMENOrdering Facility: [facility] Address: [address] [place] [address] Performed By: #### 5 7021-8 ####[facility] [place] [id number] [place] [address] [place] Hemoglobin (Bld) [Mass/Vol] 17.0 g/dL Normal 13.0-17.0 [facility] Comment on above: Order Comment: Speci men Type: BLOOD SPECIMENOrdering Facility: [facility] Address: [address] [place] [address] Performed By: #### 5 7021-8 ####[facility] [id number] [place] [address] [place] IMMATURE GRAN % 0.3 % Normal [facility] Comment on above: Order Comment: Speci men Type: BLOOD SPECIMENOrdering Facility: [facility] Address: [address] [place] [address] Performed By: #### 5 7021-8 ####[facility] [place] [id number] [place] [address] [place] IMMATURE GRAN ABS <0.03 Normal <0.10 [facility] Comment on above: Order Comment: Speci men Type: BLOOD SPECIMENOrdering Facility: [facility] Address: [address] [place] [address] Performed By: #### 5 7021-8 ####[facility] [id number] [place] [address] [place] Lymphocytes (Bld) [#/Vol] 1.58 10*3/uL Normal 1.00-4.00 [facility] Comment on above: Order Comment: Speci men Type: BLOOD SPECIMENOrdering Facility: [facility] Address: [address] [place] [address] Performed By: #### 5 7021-8 ####[facility] [id number] [place] [address] [place] Lymphocytes/100 WBC (Bld) 26.2 % Normal [facility] Comment on above: Order Comment: Speci men Type: BLOOD SPECIMENOrdering Facility: [facility] Address: [address] [place], [place] [address] Performed By: #### 5 7021-8 ####[facility] [place] [id number] [place] [address] MCH (RBC) [Entitic mass] 29.6 pg Normal 26.0-34.0 [facility] Comment on above: Order Comment: Speci men Type: BLOOD SPECIMENOrdering Facility: [facility] Address: [address] [place], [place] [address] Performed By: #### 5 7021-8 ####[facility] [id number] [place] [address] MCHC (RBC) [Mass/Vol] 34.6 g/dL Normal 30.5-36.0 [facility] Comment on above: Order Comment: Speci men Type: BLOOD SPECIMENOrdering Facility: [facility] Address: [address] [place], [place] [address] Performed By: #### 5 7021-8 ####[facility] [place] [id number] [place] [address] MCV (RBC) [Entitic vol] 85.5 fL Normal 80.0-100.0 C [facility] Comment on above: Order Comment: Speci men Type: BLOOD SPECIMENOrdering Facility: [facility] Address: [address] [place], [place] [address] Performed By: #### 5 7021-8 ####[facility] [place] [id number] [place] [address] Monocytes (Bld) [#/Vol] 0.49 10*3/uL Normal <0.87 [facility] Comment on above: Order Comment: Speci men Type: BLOOD SPECIMENOrdering Facility: [facility] Address: [address] [place], [place] [address] Performed By: #### 5 7021-8 ####[facility] [id number] [place] [address] [place] Monocytes/100 WBC (Bld) 8.1 % Normal [facility] Comment on above: Order Comment: Speci men Type: BLOOD SPECIMENOrdering Facility: [facility] Address: [address] [place] [address] Performed By: #### 5 7021-8 ####[facility] [id number] [place] [address] [place] Neutrophils (Bld) [#/Vol] 3.74 10*3/uL Normal 1.45-7.50 [facility] Comment on above: Order Comment: Speci men Type: BLOOD SPECIMENOrdering Facility: [facility] Address: [address] [place] [address] Performed By: #### 5 7021-8 ####[facility] [place] [facility] [id number] [place] [address] [place] Neutrophils/100 WBC (Bld) 62.2 % Normal [facility] Comment on above: Order Comment: Speci men Type: BLOOD SPECIMENOrdering Facility: [facility] Address: [address] [place] [address] Performed By: #### 5 7021-8 ####[facility] [id number] [place] [address] [place] Nucleated RBC (Bld) [#/Vol] 10*3/uL Normal <0.01 [facility] Comment on above: Order Comment: Speci men Type: BLOOD SPECIMENOrdering Facility: [facility] Address: [address] [place], [place] [address] Performed By: #### 5 7021-8 ####[facility] [id number] [place] [address] [place] Nucleated RBC/100 WBC (Bld) [Ratio] 0.0 /100 WBC Normal [facility] Comment on above: Order Comment: Speci men Type: BLOOD SPECIMENOrdering Facility: [facility] Address: [address] [place], [place] [address] Performed By: #### 5 7021-8 ####[facility] [id number] [place] [address] [place] Platelet mean volume (Bld) [Entitic vol] 10.4 fL Normal 9.0-12.7 [facility] Comment on above: Order Comment: Speci men Type: BLOOD SPECIMENOrdering Facility: [facility] Address: [address] [place], [place] [address] Performed By: #### 5 7021-8 ####[facility] [id number] [place] [address] [place] Platelets (Bld) [#/Vol] 298 10*3/uL Normal 150-400 [facility] Comment on above: Order Comment: Speci men Type: BLOOD SPECIMENOrdering Facility: [facility] Address: [address] [place], [place] [address] Performed By: #### 5 7021-8 ####[facility] [id number] [place] [address] [place] RBC (Bld) [#/Vol] 5.74 10*6/uL Normal 4.20-6.00 [facility] Comment on above: Order Comment: Speci men Type: BLOOD SPECIMENOrdering Facility: [facility] Address: [address] [place], [place] [address] Performed By: #### 5 7021-8 ####[facility] [id number] [place] [address] [place] WBC (Bld) [#/Vol] 6.02 10*3/uL Normal 3.70-11.00 [facility] Comment on above: Order Comment: Speci men Type: BLOOD SPECIMENOrdering Facility: [facility] Address: [address] [place], [place] [address] Performed By: #### 5 7021-8 ####[facility] [place] [id number] [place] [address] [place] CNNURSEon 08-19-2021 CNNURSE Normal [facility] CNOVon 08-19-2021 CNOV Normal [facility] CNOVSPon 08-19-2021 CNOVSP Normal [facility] Comprehensive metabolic 2000 panelon 08-19-2021 Albumin [Mass/Vol] 4.6 g/dL Normal 3.9-4.9 [facility] Comment on above: Order Comment: Speci men Type: BLOOD SPECIMENOrdering Facility: [facility] Address: [address] [place], [place] [address] Performed By: #### 2 4323-8, 3083-1, ####[facility] [id number] [place] [address] [place] ALP [Catalytic activity/Vol] 84 U/L Normal 38-113 [facility] Comment on above: Order Comment: Speci men Type: BLOOD SPECIMENOrdering Facility: [facility] Address: [address] [place], [place] [address] Performed By: #### 2 4323-8, 3083-1, ####[facility] [id number] [place] [address] [place] ALT [Catalytic activity/Vol] 59 U/L High 10-54 [facility] Comment on above: Order Comment: Speci men Type: BLOOD SPECIMENOrdering Facility: [facility] Address: [address] [place], [place] [address] Performed By: #### 2 4323-8, 308-1, ####[facility] [id number] [place] [address] [place] Anion gap [Moles/Vol] 12 mmol/L Normal 9-18 [facility] Comment on above: Order Comment: Speci men Type: BLOOD SPECIMENOrdering Facility: [facility] Address: [address] [place] [address] Performed By: #### 2 4323-8, 3084-1, ####[facility] [id number] [place] [address] [place] AST [Catalytic activity/Vol] 45 U/L High 14-40 [facility] Comment on above: Order Comment: Speci men Type: BLOOD SPECIMENOrdering Facility: [facility] Address: [address] [place], [place] [address] Performed By: #### 2 4323-8, 308-1, ####[facility] [id number] [place] [address] [place] Bilirubin [Mass/Vol] 0.3 mg/dL Normal 0.2-1.3 [facility] Comment on above: Order Comment: Speci men Type: BLOOD SPECIMENOrdering Facility: [facility] Address: [address] [place], [place] [address] Performed By: #### 2 4323-8, 3083-, ####[facility] [id number] [place] [address] [place] Calcium [Mass/Vol] 9.7 mg/dL Normal 8.5-10.2 [facility] Comment on above: Order Comment: Speci men Type: BLOOD SPECIMENOrdering Facility: [facility] Address: [address] [place] [address] Performed By: #### 2 4323-8, 3084-1, ####[facility] [id number] [place] [id number] [place] Chloride [Moles/Vol] 102 mmol/L Normal 97-105 [facility] Comment on above: Order Comment: Speci men Type: BLOOD SPECIMENOrdering Facility: [facility] Address: [address] [place], [place] [address] Performed By: #### 2 4323-8, 3084-1, ####[facility] [id number] [place] [address] [place] CO2 [Moles/Vol] 26 mmol/L Normal 22-30 [facility] Comment on above: Order Comment: Speci men Type: BLOOD SPECIMENOrdering Facility: [facility] Address: [address] [place] [address] Performed By: #### 2 4323-8, 3084-1, ####[facility] [id number] [place] [address] [place] Creatinine [Mass/Vol] 1.26 mg/dL High 0.73-1.22 [facility] Comment on above: Order Comment: Speci men Type: BLOOD SPECIMENOrdering Facility: [facility] Address: [address] [place], [place] [address] Performed By: #### 2 4323-8, 1, ####[facility] [id number] [place] [address] [place] ESTIMATED GLOMERULAR FILTRATION RATE 67 mL/min/1.73m??? Normal >=60 [facility] Comment on above: Order Comment: Speci men Type: BLOOD SPECIMENOrdering Facility: [facility] Address: [address] [place], [place] [address] Result Comment: Laurita mated Glomerular Filtration Rate [...] actual GFR. Performed By: #### 2 4323-8, 3084-, ####[facility] [id number] [place] [address] [place] Glucose [Mass/Vol] 108 mg/dL High 74-99 [facility] Comment on above: Order Comment: Speci men Type: BLOOD SPECIMENOrdering Facility: [facility] Address: [address] [place] [id number] Result Comment: The [place] Diabetes Association (ADA) provides guidance for cutoff [...] Standards of Medical Care in Diabetes 2016, [place] [employer]. Diabetes Care. 2016.39(Suppl 1). Performed By: #### 2 4323-8, 3083-03, ####[facility] [id number] [place] [address] [place] Potassium [Moles/Vol] 4.1 mmol/L Normal 3.7-5.1 [facility] Comment on above: Order Comment: Speci men Type: BLOOD SPECIMENOrdering Facility: [facility] Address: [address] [place] [address] Performed By: #### 2 4323-8, 30806-06, ####[facility] [id number] [place] [address] [place] Protein [Mass/Vol] 7.4 g/dL Normal 6.3-8.0 [facility] Comment on above: Order Comment: Speci men Type: BLOOD SPECIMENOrdering Facility: [facility] Address: [address] [place] [address] Performed By: #### 2 4323-8, 3084-1, ####[facility] [id number] [place] [address] [place] Sodium [Moles/Vol] 140 mmol/L Normal 136-144 [facility] Comment on above: Order Comment: Speci men Type: BLOOD SPECIMENOrdering Facility: [facility] Address: [address] [place] [address] Performed By: #### 2 4323-8, 3084-1, ####[facility] [place] [id number] [place] [address] [place] Urea nitrogen [Mass/Vol] 17 mg/dL Normal 9-24 [facility] Comment on above: Order Comment: Speci men Type: BLOOD SPECIMENOrdering Facility: [facility] Address: [address] [place] [address] Performed By: #### 2 4323-8, 3084-1, ####[facility] [place] [id number] [place] [address] [place] LDH SerPl-cCncon 08-19-2021 LDH [Catalytic activity/Vol] 334 U/L High 135-225 [facility] Comment on above: Order Comment: Speci men Type: BLOOD SPECIMENOrdering Facility: [facility] Address: [address] [place] [address] Performed By: #### 2 532-0 ####[facility] [id number] [place] [address] [place] Magnesium SerPl-mCncon 08-19 Magnesium [Mass/Vol] 2.3 mg/dL Normal 1.7-2.3 [facility] Comment on above: Order Comment: Speci men Type: BLOOD SPECIMENOrdering Facility: [facility] Address: [address] [place] [address] Performed By: #### 2 4323-8, 3084-1, 05095-0 ####[facility] [id number] [place] [address] [place] PT panel Coag (PPP)on 2021 INR Coag (PPP) [Relative time] 1.0 {INR} Normal 0.9-1.3 [facility] Comment on above: Order Comment: Aaliyah gibson Type: BLOOD SPECIMENOrdering Facility: [facility] Address: [address] [place], [place] [address] Result Comment: Constanza min K Antagonist (VKA) Therapeutic Range: INR 2 to 3 (Target INR of 2.5)Note: For patients treated with VKA drugs, such as warfarin, the [place] [employer] 2012 Guideline recommends [...] al. Chest 2012, 141:7S-47SNishimura RA, et al. [facility] 2017, 70: 252-289 Performed By: #### 3 4528-0, 30254-7 ####[facility] [id number] [place] [address] [place] PT Coag (PPP) [Time] 10.9 s Normal 9.7-13.0 [facility] Comment on above: Order Comment: Aaliyah gibson Type: BLOOD SPECIMENOrdering Facility: [facility] Address: [address] [place], [place] [address] Performed By: #### 3 4528-0, 72614-4 ####[facility] [id number] [place] [address] [place] Phosphate SerPl-mCncon 08-19 Phosphate [Mass/Vol] 4.2 mg/dL Normal 2.7-4.8 [facility] Comment on above: Order Comment: Speci men Type: BLOOD SPECIMENOrdering Facility: [facility] Address: [address] [place] [address] Performed By: #### 2 777-1 ####[facility] [id number] [place] [address] [place] Urate [facility] Urate [Mass/Vol] 7.4 mg/dL Normal 4.0-8.1 [facility] Comment on above: Order Comment: Speci men Type: BLOOD SPECIMENOrdering Facility: [facility] Address: [address] [place] [address] Performed By: #### 2 4323-8, 3084-1, 65091-3 ####[facility] [id number] [place] [address] [place] aPTT PPPon 08-19-2021 aPTT Coag (PPP) [Time] 28.3 s Normal 23.0-32.4 [facility] Comment on above: Order Comment: Speci men Type: BLOOD SPECIMENOrdering Facility: [facility] Address: [address] [place], [place] [address] Performed By: #### 3 4528-0, 49035-4 ####[facility] [id number] [place] [address] [place] CNPNon 08-18-2021 CNPN Normal [facility] CBC W Auto Differential pane l (Bld)on 08-17-2021 Basophils (Bld) [#/Vol] 0.04 10*3/uL Normal <0.11 [facility] Comment on above: Order Comment: Speci men Type: BLOOD SPECIMENOrdering Facility: [facility] Address: [address] [place], [place] [address] Performed By: #### 5 7021-8 ####[facility] LABCLIA [id number] [place] [address] [place] Basophils/100 WBC (Bld) 0.5 % Normal [facility] Comment on above: Order Comment: Speci men Type: BLOOD SPECIMENOrdering Facility: [facility] Address: [address] [place], [place] [address] Performed By: #### 5 7021-8 ####[facility] LABCLIA [id number] [place] [address] [place] Differential cell count method Nom (Bld) Auto Normal [facility] Comment on above: Order Comment: Speci men Type: BLOOD SPECIMENOrdering Facility: [facility] Address: [address] [place], [place] [address] Performed By: #### 5 7021-8 ####[facility] LABCLIA [id number] [place] [address] [place] Eosinophils (Bld) [#/Vol] 0.18 10*3/uL Normal <0.46 [facility] Comment on above: Order Comment: Speci men Type: BLOOD SPECIMENOrdering Facility: [facility] Address: [address] [place], [place] [address] Performed By: #### 5 7021-8 ####[facility] LABCLIA [id number] [address] [place] Eosinophils/100 WBC (Bld) 2.4 % Normal [facility] Comment on above: Order Comment: Speci men Type: BLOOD SPECIMENOrdering Facility: [facility] Address: [address] [place], [place] [address] Performed By: #### 5 7021-8 ####[facility] LABIA [id number] [place] [address] [place] Erythrocyte distribution width (RBC) [Ratio] 14.6 % Normal 11.5-15.0 [facility] Comment on above: Order Comment: Speci men Type: BLOOD SPECIMENOrdering Facility: [facility] Address: [address] [place], [place] [address] Performed By: #### 5 7021-8 ####[facility] LABIA [id number] [place] [address] [place] Hematocrit (Bld) [Volume fraction] 47.4 % Normal 39.0-51.0 [facility] Comment on above: Order Comment: Speci men Type: BLOOD SPECIMENOrdering Facility: [facility] Address: [address] [place] [address] Performed By: #### 5 7021-8 ####[facility] [id number] [place] [address] [place] Hemoglobin (Bld) [Mass/Vol] 16.4 g/dL Normal 13.0-17.0 [facility] Comment on above: Order Comment: Speci men Type: BLOOD SPECIMENOrdering Facility: [facility] Address: [address] [place] [address] Performed By: #### 5 7021-8 ####[facility] [id number] [address] [place] IMMATURE GRAN % 0.3 % Normal [facility] Comment on above: Order Comment: Speci men Type: BLOOD SPECIMENOrdering Facility: [facility] Address: [address] [place] [address] Performed By: #### 5 7021-8 ####[facility] [id number] [address] [place] IMMATURE GRAN ABS <0.03 Normal <0.10 [facility] Comment on above: Order Comment: Speci men Type: BLOOD SPECIMENOrdering Facility: [facility] Address: [address] [place] [address] Performed By: #### 5 7021-8 ####[facility] LABCLIA [id number] [place] [address] [place] Lymphocytes (Bld) [#/Vol] 1.36 10*3/uL Normal 1.00-4.00 [facility] Comment on above: Order Comment: Speci men Type: BLOOD SPECIMENOrdering Facility: [facility] Address: [address] [place] [address] Performed By: #### 5 7021-8 ####[facility] LABIA [id number] [address] [place] Lymphocytes/100 WBC (Bld) 18.4 % Normal [facility] Comment on above: Order Comment: Speci men Type: BLOOD SPECIMENOrdering Facility: [facility] Address: [address] [place] [address] Performed By: #### 5 7021-8 ####[facility] LABIA [id number] [place] [address] [place] MCH (RBC) [Entitic mass] 29.8 pg Normal 26.0-34.0 [facility] Comment on above: Order Comment: Speci men Type: BLOOD SPECIMENOrdering Facility: [facility] Address: [address] [place], [place] [address] Performed By: #### 5 7021-8 ####[facility] LABIA [id number] [place] [address] [place] MCHC (RBC) [Mass/Vol] 34.6 g/dL Normal 30.5-36.0 [facility] Comment on above: Order Comment: Speci men Type: BLOOD SPECIMENOrdering Facility: [facility] Address: [address] [place], [place] [address] Performed By: #### 5 7021-8 ####[facility] LABCLIA [id number] [address] [place] MCV (RBC) [Entitic vol] 86.0 fL Normal 80.0-100.0 C [facility] Comment on above: Order Comment: Speci men Type: BLOOD SPECIMENOrdering Facility: [facility] Address: [address] [place], [place] [address] Performed By: #### 5 7021-8 ####[facility] LABIA [id number] [place] [address] [place] Monocytes (Bld) [#/Vol] 0.42 10*3/uL Normal <0.87 [facility] Comment on above: Order Comment: Speci men Type: BLOOD SPECIMENOrdering Facility: [facility] Address: [address] [place] [address] Performed By: #### 5 7021-8 ####[facility] LABCLIA [id number] [address] [place] Monocytes/100 WBC (Bld) 5.7 % Normal C [facility] Comment on above: Order Comment: Speci men Type: BLOOD SPECIMENOrdering Facility: [facility] Address: [address] [place], [place] [address] Performed By: #### 5 7021-8 ####[facility] LABCLIA [id number] [place] [address] [place] Neutrophils (Bld) [#/Vol] 5.37 10*3/uL Normal 1.45-7.50 [facility] Comment on above: Order Comment: Speci men Type: BLOOD SPECIMENOrdering Facility: [facility] Address: [address] [place], [place] [address] Performed By: #### 5 7021-8 ####[facility] LABCLIA [id number] [place] [address] [place] Neutrophils/100 WBC (Bld) 72.7 % Normal [facility] Comment on above: Order Comment: Speci men Type: BLOOD SPECIMENOrdering Facility: [facility] Address: [address] [place] [address] Performed By: #### 5 7021-8 ####[facility] LABIA [id number] [place] [address] [place] Nucleated RBC (Bld) [#/Vol] 10*3/uL Normal <0.01 [facility] Comment on above: Order Comment: Speci men Type: BLOOD SPECIMENOrdering Facility: [facility] Address: [address] [place] [address] Performed By: #### 5 7021-8 ####[facility] LABIA [id number] [place] [address] [place] Nucleated RBC/100 WBC (Bld) [Ratio] 0.0 /100 WBC Normal [facility] Comment on above: Order Comment: Speci men Type: BLOOD SPECIMENOrdering Facility: [facility] Address: [address] [place], [place] [address] Performed By: #### 5 7021-8 ####[facility] LABIA [id number] [place] [address] [place] Platelet mean volume (Bld) [Entitic vol] 10.0 fL Normal 9.0-12.7 [facility] Comment on above: Order Comment: Speci men Type: BLOOD SPECIMENOrdering Facility: [facility] Address: [address] [place], [place] [address] Performed By: #### 5 7021-8 ####[facility] LABIA [id number] [place] [address] [place] Platelets (Bld) [#/Vol] 288 10*3/uL Normal 150-400 [facility] Comment on above: Order Comment: Speci men Type: BLOOD SPECIMENOrdering Facility: [facility] Address: [address] [place], [place] [address] Performed By: #### 5 7021-8 ####[facility] LABCLIA [id number] [place] [address] [place] RBC (Bld) [#/Vol] 5.51 10*6/uL Normal 4.20-6.00 [facility] Comment on above: Order Comment: Speci men Type: BLOOD SPECIMENOrdering Facility: [facility] Address: [address] [place], [place] [address] Performed By: #### 5 7021-8 ####[facility] LABCLIA [id number] [place] [address] [place] WBC (Bld) [#/Vol] 7.39 10*3/uL Normal 3.70-11.00 [facility] Comment on above: Order Comment: Speci men Type: BLOOD SPECIMENOrdering Facility: [facility] Address: [address] [place], [place] [address] Performed By: #### 5 7021-8 ####[facility] LABCLIA [id number] [place] [address] [place] [address] ABD/PEL WO IVCONon 2021 CT ABD/PEL WO IVCON Normal [facility] CT CHEST W IVCON PEon 2021 CT CHEST W IVCON PE Normal [facility] Comprehensive metabolic 2000 panelon 08-17-2021 Albumin [Mass/Vol] 4.4 g/dL Normal 3.9-4.9 [facility] Comment on above: Order Comment: Speci men Type: BLOOD SPECIMENOrdering Facility: [facility] Address: [address] [place], [place] [address] Performed By: #### 3 040-3, 58021-2, 38899-2, 23478-0, BEAU ####[facility] LABCLIA [id number] [place] [address] [place] ALP [Catalytic activity/Vol] 74 U/L Normal 38-113 [facility] Comment on above: Order Comment: Speci men Type: BLOOD SPECIMENOrdering Facility: [facility] Address: [address] [place] [address] Performed By: #### 3 040-3, 97668-3, 43721-0, 95240-4, BEAU ####[facility] LABCLIA [id number] [place] [address] [place] ALT [Catalytic activity/Vol] 44 U/L Normal 10-54 [facility] Comment on above: Order Comment: Speci men Type: BLOOD SPECIMENOrdering Facility: [facility] Address: [address] [place] [address] Performed By: #### 3 040-3, 99707-3, 14880-8, 19349-0, BEAU ####[facility] LABCLIA [id number] [place] [address] [place] Anion gap [Moles/Vol] 12 mmol/L Normal 9-18 [facility] Comment on above: Order Comment: Speci men Type: BLOOD SPECIMENOrdering Facility: [facility] Address: [address] [place] [address] Performed By: #### 3 040-3, 84807-5, 75055-2, 01665-3, BEAU ####[facility] LABCLIA [id number] [place] [address] [place] AST [Catalytic activity/Vol] 27 U/L Normal 14-40 [facility] Comment on above: Order Comment: Speci men Type: BLOOD SPECIMENOrdering Facility: [facility] Address: [address] [place] [address] Performed By: #### 3 040-3, 61841-3, 96943-7, 97786-0, BEAU ####[facility] LABCLIA [id number] [address] [address] [place] Bilirubin [Mass/Vol] 0.7 mg/dL Normal 0.2-1.3 [facility] Comment on above: Order Comment: Speci men Type: BLOOD SPECIMENOrdering Facility: [facility] Address: [address] [place] [address] Performed By: #### 3 040-3, 30918-8, , 85704-8, BEAU ####[facility] LABCLIA [id number] [place] [address] [place] Calcium [Mass/Vol] 10.3 mg/dL High 8.5-10.2 [facility] Comment on above: Order Comment: Speci men Type: BLOOD SPECIMENOrdering Facility: [facility] Address: [address] [place], [place] [address] Performed By: #### 3 040-3, 63105-6, , 81327-3, BEAU ####[facility] LABCLIA [id number] [place] [address] [place] Chloride [Moles/Vol] 99 mmol/L Normal 97-105 [facility] Comment on above: Order Comment: Speci men Type: BLOOD SPECIMENOrdering Facility: [facility] Address: [address] [place], [place] [address] Performed By: #### 3 040-3, 28123-2, , 96360-2, BEAU ####[facility] LABCLIA [id number] [place] [id number] [place] CO2 [Moles/Vol] 26 mmol/L Normal 22-30 [facility] Comment on above: Order Comment: Speci men Type: BLOOD SPECIMENOrdering Facility: [facility] Address: [address] [place], [place] [address] Performed By: #### 3 040-3, 66190-1, , 13391-3, BEAU ####[facility] LABIA [id number] [place] [address] [place] Creatinine [Mass/Vol] 1.21 mg/dL Normal 0.73-1.22 [facility] Comment on above: Order Comment: Speci men Type: BLOOD SPECIMENOrdering Facility: [facility] Address: [address] [place] [address] Performed By: #### 3 040-3, 95870-4, 29151-0, 86830-8, BEAU ####[facility] LABIA [id number] [address] [place] ESTIMATED GLOMERULAR FILTRATION RATE 70 mL/min/1.73m??? Normal >=60 [facility] Comment on above: Order Comment: Spectricia men Type: BLOOD SPECIMENOrdering Facility: [facility] Address: [address] [place] [address] Result Comment: Laurita mated Glomerular Filtration Rate [...] actual GFR. Performed By: #### 3 040-3, 76486-9, 09294-5, 16470-9, BEAU ####[facility] LABIA [id number] [place] [id number] [place] Glucose [Mass/Vol] 118 mg/dL High 74-99 [facility] Comment on above: Order Comment: Speci men Type: BLOOD SPECIMENOrdering Facility: [facility] Address: [address] [place] [address] Result Comment: The [place] [employer] (ADA) provides guidance for cutoff [...] Standards of Medical Care in Diabetes 2016, [place] [employer]. Diabetes Care. 2016.39(Suppl 1). Performed By: #### 3 040-3, 02597-2, 37346-1, 24930-2, BEAU ####[facility] LABCLIA [id number] [place] [address] [place] Potassium [Moles/Vol] 4.1 mmol/L Normal 3.7-5.1 [facility] Comment on above: Order Comment: Speci men Type: BLOOD SPECIMENOrdering Facility: [facility] Address: [address] [place] [address] Performed By: #### 3 040-3, 08577-2, 92854-2, 02036-1, BEAU ####[facility] LABIA [id number] [place] [address] [place] Protein [Mass/Vol] 7.8 g/dL Normal 6.3-8.0 [facility] Comment on above: Order Comment: Speci men Type: BLOOD SPECIMENOrdering Facility: [facility] Address: [address] [place] [address] Performed By: #### 3 040-3, 24010-1, 21233-3, 55520-8, BEAU ####[facility] LABIA [id number] [place] [address] [place] Sodium [Moles/Vol] 137 mmol/L Normal 136-144 [facility] Comment on above: Order Comment: Speci men Type: BLOOD SPECIMENOrdering Facility: [facility] Address: [address] [place] [address] Performed By: #### 3 040-3, 82306-5, 00353-0, 02885-0, BEAU ####[facility] LABCLIA [id number] [place] [address] [place] Urea nitrogen [Mass/Vol] 13 mg/dL Normal 9-24 [facility] Comment on above: Order Comment: Speci men Type: BLOOD SPECIMENOrdering Facility: [facility] Address: [address] [place], [place] [address] Performed By: #### 3 040-3, 58698-8, 95064-3, 63290-3, BEAU ####[facility] LABCLIA [id number] [address] [place] D dimer FEU PPP-mCncon 08-17 Fibrin D-dimer FEU (PPP) [Mass/Vol] 1060 ng/mL FEU High <500 [facility] Comment on above: Order Comment: Speci men Type: BLOOD SPECIMENOrdering Facility: [facility] Address: [address] [place] [address] Performed By: #### 4 8065-7 ####[facility] LABIA [id number] [address] [place] ED NOTEon 08-17-2021 ED NOTE Normal [facility] ED PROV NOTEon 08-17-2021 ED PROV NOTE Normal [facility] ED PROV NOTE Normal [facility] Fibrin D-dimer FEU (PPP) [Ma ss/Vol]on 08-17-2021 D DIMER AGE-RELATED CUTOFF 570 ng/mL FEU Normal [facility] Comment on above: Order Comment: Speci men Type: BLOOD SPECIMENOrdering Facility: [facility] Address: [address] [place], [place] [address] Performed By: #### 4 8065-7 ####[facility] LABCLIA [id number] [place] [address] [place] Lipase SerPl-cCncon 08-18-19 22 Lipase [Catalytic activity/Vol] 22 U/L Normal 16-61 [facility] Comment on above: Order Comment: Speci men Type: BLOOD SPECIMENOrdering Facility: [facility] Address: [address] [place] [address] Performed By: #### 3 040-3, 45215-4, 50978-7, 12122-7, BEAU ####[facility] LABCLIA [id number] [place] [address] [place] Magnesium SerPl-mCncon 08-17 Magnesium [Mass/Vol] 2.0 mg/dL Normal 1.7-2.3 [facility] Comment on above: Order Comment: Speci men Type: BLOOD SPECIMENOrdering Facility: [facility] Address: [address] [place] [address] Performed By: #### 3 040-3, 64787-5, 73200-4, 62854-3, BEAU ####[facility] LABCLIA [id number] [address] [place] NT-proBNP SerPl-ncon 08-17 Natriuretic peptide.B prohormone N-Terminal [Mass/Vol] 1881 pg/mL High <125 [facility] Comment on above: Order Comment: Speci men Type: BLOOD SPECIMENOrdering Facility: [facility] Address: [address] [place] [address] Performed By: #### 3 040-3, 11319-1, 46530-9, 89144-0, BEAU ####[facility] LABIA [id number] [address] [place] TROPONIN Ton 08-17-2021 Troponin T.cardiac [Mass/Vol] 0.022 ug/L Normal 0.000-0.02 9 [facility] Comment on above: Order Comment: Speci men Type: BLOOD SPECIMENOrdering Facility: [facility] Address: [address] [place] [address] Performed By: #### 3 040-3, 71828-3, 46015-2, 69311-3, BEAU ####[facility] LABCLIA [id number] [place] [address] [place] Urinalysis complete panel (U )on 08-17-2021 Bilirubin Ql (U) Negative Normal Negative [facility] Comment on above: Order Comment: Speci men Type: URINE SPECIMENOrdering Facility: [facility] Address: [address] [place], [place] [address] Performed By: #### 2 4356-8 ####[facility] LABIA [id number] [place] [address] [place] Clarity (Unsp spec) Clear Normal Clear [facility] Comment on above: Order Comment: Speci men Type: URINE SPECIMENOrdering Facility: [facility] Address: [address] [place], [place] [id number] Performed By: #### 2 4356-8 ####[facility] LABIA [id number] [place] [address] [place] Color (U) Yellow Normal Yellow [facility] Comment on above: Order Comment: Speci men Type: URINE SPECIMENOrdering Facility: [facility] Address: [address] [place], [place] [id number] Performed By: #### 2 4356-8 ####[facility] LABCLIA [id number] [place] [address] [place] Epithelial cells LM.HPF (Urine sed) [#/Area] Few Normal [facility] Comment on above: Order Comment: Speci men Type: URINE SPECIMENOrdering Facility: [facility] Address: [address] [place], [place] [address] Performed By: #### 2 4356-8 ####[facility] LABIA [id number] [place] [address] [place] Glucose Test strip (U) [Mass/Vol] Negative Normal Negative [facility] Comment on above: Order Comment: Speci men Type: URINE SPECIMENOrdering Facility: [facility] Address: [address] Performed By: #### 2 4356-8 ####[facility] LABCLIA [id number] [address] STATES OF [facility] Hemoglobin Ql (U) Negative Normal Negative [facility] Comment on above: Order Comment: Speci men Type: URINE SPECIMENOrdering Facility: [facility] Address: [address] [place], [place] [address] Performed By: #### 2 4356-8 ####[facility] LABCLIA [id number] [address] OF [place] Hyaline casts (Urine sed) [#/Area] 1-3 /LPF Abnormal 0 /LPF [facility] Comment on above: Order Comment: Speci men Type: URINE SPECIMENOrdering Facility: [facility] Address: [address] [place], [place] [address] Performed By: #### 2 4356-8 ####[facility] LABCLIA [id number] [address] STATES [facility] Ketones Ql (U) Negative Normal Negative [facility] Comment on above: Order Comment: Speci men Type: URINE SPECIMENOrdering Facility: [facility] Address: [address] [place], [place] [address] Performed By: #### 2 4356-8 ####[facility] LABCLIA [id number] [address] STATES OF [place] Leukocyte esterase Test strip Ql (U) Negative Normal Negative [facility] Comment on above: Order Comment: Speci men Type: URINE SPECIMENOrdering Facility: [facility] Address: [address] [place], [place] [address] Performed By: #### 2 4356-8 ####[facility] LABCLIA [id number] [place] [address] [place] Nitrite Ql (U) Negative Normal Negative [facility] Comment on above: Order Comment: Speci men Type: URINE SPECIMENOrdering Facility: [facility] Address: [address] [place] [address] Performed By: #### 2 4356-8 ####[facility] LABIA [id number] [place] [address] [place] pH (U) 7.0 [pH] Normal 5.0-8.0 [facility] Comment on above: Order Comment: Speci men Type: URINE SPECIMENOrdering Facility: [facility] Address: [address] [place] [address] Performed By: #### 2 4356-8 ####[facility] LABIA [id number] [address] STATES OF [facility] Protein (U) [Mass/Vol] Negative Normal Negative [facility] Comment on above: Order Comment: Speci men Type: URINE SPECIMENOrdering Facility: [facility] Address: [address] [place] [address] Performed By: #### 2 4356-8 ####[facility] LABIA [id number] [place] [address] [place] RBC LM.HPF (Urine sed) [#/Area] 0-3 /HPF Normal 0-3 /HPF [facility] Comment on above: Order Comment: Speci men Type: URINE SPECIMENOrdering Facility: [facility] Address: [address] [place], [place] [address] Performed By: #### 2 4356-8 ####[facility] LABIA [id number] [place] [address] [place] Specific gravity (U) [Rel density] 1.016 Normal 1.005-1.03 0 [facility] Comment on above: Order Comment: Speci men Type: URINE SPECIMENOrdering Facility: [facility] Address: [address] [place] [address] Performed By: #### 2 4356-8 ####[facility] LABIA [id number] [place] [address] [place] Urobilinogen Ql (U) Negative Normal Negative [facility] Comment on above: Order Comment: Speci men Type: URINE SPECIMENOrdering Facility: [facility] Address: [address] [place] [address] Performed By: #### 2 4356-8 ####[facility] LABIA [id number] [place] [address] [place] WBC LM.HPF (Urine sed) [#/Area] 0-5 /HPF Normal 0-5 /HPF [facility] Comment on above: Order Comment: Speci men Type: URINE SPECIMENOrdering Facility: [facility] Address: [address] [place] [address] Performed By: #### 2 4356-8 ####[facility] [id number] [place] [address] [place] XR CHEST 1V FRONTAL PORTon 0 08-17-2021 XR CHEST 1V FRONTAL PORT Normal [facility] CNPNon 08-13-2021 CNPN Normal [facility] CNPNon 08-12-2021 CNPN Normal [facility] CNPNon 08-11-2021 CNPN Normal [facility] ACTIVATED PTTon 08-08-2021 aPTT Coag (PPP) [Time] 29.9 s 23.0 - 32.4 sec [facility] CBC W Auto Differential pane l (Bld)on 08-08-2021 Basophils (Bld) [#/Vol] 10*3/uL Normal <0.11 C [facility] Comment on above: Order Comment: Speci men Type: BLOOD SPECIMENOrdering Facility: [facility] Address: [address] [place], [place] [address] Performed By: #### 5 7021-8 ####[facility] [id number] [address] STATES [facility] Basophils/100 WBC (Bld) 0.3 % Normal [facility] Comment on above: Order Comment: Speci men Type: BLOOD SPECIMENOrdering Facility: [facility] Address: [address] [place] [address] Performed By: #### 5 7021-8 ####[facility] [id number] [place] [address] Differential cell count method Nom (Bld) Auto Normal [facility] Comment on above: Order Comment: Speci men Type: BLOOD SPECIMENOrdering Facility: [facility] Address: [address] [place] [address] Performed By: #### 5 7021-8 ####[facility] [id number] [place] [address] STATES [facility] Eosinophils (Bld) [#/Vol] 0.04 10*3/uL Normal <0.46 [facility] Comment on above: Order Comment: Speci men Type: BLOOD SPECIMENOrdering Facility: [facility] Address: [address] [place] [address] Performed By: #### 5 7021-8 ####[facility] [id number] [place] [address] Eosinophils/100 WBC (Bld) 0.7 % Normal [facility] Comment on above: Order Comment: Speci men Type: BLOOD SPECIMENOrdering Facility: [facility] Address: [address] [place], [place] [address] Performed By: #### 5 7021-8 ####[facility] [id number] [place] [address] STATES [facility] Erythrocyte distribution width (RBC) [Ratio] 15.6 % High 11.5-15.0 [facility] Comment on above: Order Comment: Speci men Type: BLOOD SPECIMENOrdering Facility: [facility] Address: [address] [place], [place] [address] Performed By: #### 5 7021-8 ####[facility] [id number] [address] STATES OF [place] Hematocrit (Bld) [Volume fraction] 43.0 % Normal 39.0-51.0 [facility] Comment on above: Order Comment: Speci men Type: BLOOD SPECIMENOrdering Facility: [facility] Address: [address] [place], [place] [address] Performed By: #### 5 7021-8 ####[facility] [id number] [place] [address] [place] Hemoglobin (Bld) [Mass/Vol] 14.6 g/dL Normal 13.0-17.0 [facility] Comment on above: Order Comment: Speci men Type: BLOOD SPECIMENOrdering Facility: [facility] Address: [address] [place], [place] [address] Performed By: #### 5 7021-8 ####[facility] [id number] [address] OF [facility] IMMATURE GRAN % 0.3 % Normal [facility] Comment on above: Order Comment: Speci men Type: BLOOD SPECIMENOrdering Facility: [facility] Address: [address] [place], [place] [address] Performed By: #### 5 7021-8 ####[facility] [id number] [place] [address] [place] IMMATURE GRAN ABS <0.03 Normal <0.10 [facility] Comment on above: Order Comment: Speci men Type: BLOOD SPECIMENOrdering Facility: [facility] Address: [address] [place], [place] [address] Performed By: #### 5 7021-8 ####[facility] [id number] [place] [address] [place] Lymphocytes (Bld) [#/Vol] 1.61 10*3/uL Normal 1.00-4.00 [facility] Comment on above: Order Comment: Speci men Type: BLOOD SPECIMENOrdering Facility: [facility] Address: [address] [place], [place] [address] Performed By: #### 5 7021-8 ####[facility] [id number] [place] [address] [place] [facility] Lymphocytes/100 WBC (Bld) 26.6 % Normal [facility] Comment on above: Order Comment: Speci men Type: BLOOD SPECIMENOrdering Facility: [facility] Address: [address] [place] [address] Performed By: #### 5 7021-8 ####[facility] [id number] [place] [address] [place] MCH (RBC) [Entitic mass] 29.9 pg Normal 26.0-34.0 [facility] Comment on above: Order Comment: Speci men Type: BLOOD SPECIMENOrdering Facility: [facility] Address: [address] [place], [place] [address] Performed By: #### 5 7021-8 ####[facility] [id number] [address] STATES OF [facility] MCHC (RBC) [Mass/Vol] 34.0 g/dL Normal 30.5-36.0 [facility] Comment on above: Order Comment: Speci men Type: BLOOD SPECIMENOrdering Facility: [facility] Address: [address] [place], [place] [address] Performed By: #### 5 7021-8 ####[facility] [id number] [place] [address] [place] MCV (RBC) [Entitic vol] 87.9 fL Normal 80.0-100.0 C [facility] Comment on above: Order Comment: Speci men Type: BLOOD SPECIMENOrdering Facility: [facility] Address: [address] [place] [address] Performed By: #### 5 7021-8 ####[facility] [id number] [place] [address] [place] Monocytes (Bld) [#/Vol] 0.40 10*3/uL Normal <0.87 [facility] Comment on above: Order Comment: Speci men Type: BLOOD SPECIMENOrdering Facility: [facility] Address: [address] [place] [address] Performed By: #### 5 7021-8 ####[facility] [id number] [place] [address] [place] Monocytes/100 WBC (Bld) 6.6 % Normal C [facility] Comment on above: Order Comment: Speci men Type: BLOOD SPECIMENOrdering Facility: [facility] Address: [address] [place] [address] Performed By: #### 5 7021-8 ####[facility] [id number] [place] [address] [place] Neutrophils (Bld) [#/Vol] 3.97 10*3/uL Normal 1.45-7.50 [facility] Comment on above: Order Comment: Speci men Type: BLOOD SPECIMENOrdering Facility: [facility] Address: [address] [place] [address] Performed By: #### 5 7021-8 ####[facility] [id number] [place] [address] [place] Neutrophils/100 WBC (Bld) 65.5 % Normal [facility] Comment on above: Order Comment: Speci men Type: BLOOD SPECIMENOrdering Facility: [facility] Address: [address] [place], [place] [address] Performed By: #### 5 7021-8 ####[facility] [id number] [address] STATES [place] Nucleated RBC (Bld) [#/Vol] 10*3/uL Normal <0.01 [facility] Comment on above: Order Comment: Speci men Type: BLOOD SPECIMENOrdering Facility: [facility] Address: [address] [place], [place] [address] Performed By: #### 5 7021-8 ####[facility] [id number] [place] [address] [place] Nucleated RBC/100 WBC (Bld) [Ratio] 0.0 /100 WBC Normal [facility] Comment on above: Order Comment: Speci men Type: BLOOD SPECIMENOrdering Facility: [facility] Address: [address] [place], [place] [address] Performed By: #### 5 7021-8 ####[facility] [id number] [place] [address] [place] Platelet mean volume (Bld) [Entitic vol] 10.1 fL Normal 9.0-12.7 [facility] Comment on above: Order Comment: Speci men Type: BLOOD SPECIMENOrdering Facility: [facility] Address: [address] [place] [address] Performed By: #### 5 7021-8 ####[facility] [id number] [place] [address] [place] Platelets (Bld) [#/Vol] 263 10*3/uL Normal 150-400 [facility] Comment on above: Order Comment: Speci men Type: BLOOD SPECIMENOrdering Facility: [facility] Address: [address] [place] [address] Performed By: #### 5 7021-8 ####[facility] [id number] [place] [address] [place] [facility] RBC (Bld) [#/Vol] 4.89 10*6/uL Normal 4.20-6.00 [facility] Comment on above: Order Comment: Speci men Type: BLOOD SPECIMENOrdering Facility: [facility] Address: [address] [place] [address] Performed By: #### 5 7021-8 ####[facility] [id number] [address] STATES OF [facility] WBC (Bld) [#/Vol] 6.06 10*3/uL Normal 3.70-11.00 [facility] Comment on above: Order Comment: Speci men Type: BLOOD SPECIMENOrdering Facility: [facility] Address: [address] [place] [address] Performed By: #### 5 7021-8 ####[facility] [id number] [address] STATES OF [facility] Abs Immature Gran <0.03 <0.10 k/uL [facility] Basophils (Bld) [#/Vol] 10*3/uL <0.11 k/uL [facility] Basophils/100 WBC (Bld) 0.3 % [facility] Differential cell count method Nom (Bld) Auto [facility] Eosinophils (Bld) [#/Vol] 0.04 10*3/uL <0.46 k/uL [facility] Eosinophils/100 WBC (Bld) 0.7 % [facility] Erythrocyte distribution width (RBC) [Ratio] 15.6 % High 11.5 - 15.0 % [facility] Hematocrit (Bld) [Volume fraction] 43.0 % 39.0 - 51.0 % [facility] Hemoglobin (Bld) [Mass/Vol] 14.6 g/dL 13.0 - 17.0 g/dL [facility] Immature Gran % 0.3 % [facility] Lymphocytes (Bld) [#/Vol] 1.61 10*3/uL 1.00 - 4.00 k/uL [facility] Lymphocytes/100 WBC (Bld) 26.6 % [facility] MCH (RBC) [Entitic mass] 29.9 pg 26.0 - 34.0 pg [facility] MCHC (RBC) [Mass/Vol] 34.0 g/dL 30.5 - 36.0 g/dL [facility] MCV (RBC) [Entitic vol] 87.9 fL 80.0 - 100.0 fL [facility] Monocytes (Bld) [#/Vol] 0.40 10*3/uL <0.87 k/uL [facility] Monocytes/100 WBC (Bld) 6.6 % C [facility] Neutrophils (Bld) [#/Vol] 3.97 10*3/uL 1.45 - 7.50 k/uL [facility] Neutrophils/100 WBC (Bld) 65.5 % [facility] Nucleated RBC (Bld) [#/Vol] 10*3/uL <0.01 k/uL [facility] Nucleated RBC/100 WBC (Bld) [Ratio] 0.0 /100 WBC [facility] Platelet mean volume (Bld) [Entitic vol] 10.1 fL 9.0 - 12.7 fL [facility] Platelets (Bld) [#/Vol] 263 10*3/uL 150 - 400 k/uL [facility] RBC (Bld) [#/Vol] 4.89 10*6/uL 4.20 - 6.00 m/uL [facility] WBC (Bld) [#/Vol] 6.06 10*3/uL 3.70 - 11.00 k/uL [facility] CNNURSEon 08-08-2021 CNNURSE Normal [facility] CNOVSPon 08-08-2021 CNOVSP Normal [facility] CNSWon 08-08-2021 CNSW Normal [facility] Comprehensive metabolic 2000 panelon 08-08-2021 Albumin [Mass/Vol] 4.2 g/dL Normal 3.9-4.9 [facility] Comment on above: Order Comment: Speci men Type: BLOOD SPECIMENOrdering Facility: [facility] Address: [address] [place] [address] Performed By: #### 2 4323-8, 3084-1, ####[facility] [id number] [place] [address] [place] ALP [Catalytic activity/Vol] 56 U/L Normal 38-113 [facility] Comment on above: Order Comment: Speci men Type: BLOOD SPECIMENOrdering Facility: [facility] Address: [address] [place], [place] [address] Performed By: #### 2 4323-8, 3084-, ####[facility] [id number] [address] [place] OF [place] ALT [Catalytic activity/Vol] 34 U/L Normal 10-54 [facility] Comment on above: Order Comment: Speci men Type: BLOOD SPECIMENOrdering Facility: [facility] Address: [address] [place], [place] [address] Performed By: #### 2 4323-8, 3083-03, ####[facility] [id number] [place] [address] [place] Anion gap [Moles/Vol] 10 mmol/L Normal 9-18 [facility] Comment on above: Order Comment: Speci men Type: BLOOD SPECIMENOrdering Facility: [facility] Address: [address] [place], [place] [address] Performed By: #### 2 4323-8, 3083-03, ####[facility] [id number] [place] [id number] [place] AST [Catalytic activity/Vol] 18 U/L Normal 14-40 [facility] Comment on above: Order Comment: Speci men Type: BLOOD SPECIMENOrdering Facility: [facility] Address: [address] [place] [address] Performed By: #### 2 4323-8, 3083-1, ####[facility] [id number] [address] [address] [place] Bilirubin [Mass/Vol] 0.5 mg/dL Normal 0.2-1.3 [facility] Comment on above: Order Comment: Speci men Type: BLOOD SPECIMENOrdering Facility: [facility] Address: [address] [place], [place] [address] Performed By: #### 2 4323-8, 3083-, ####[facility] [id number] [place] [address] [place] Calcium [Mass/Vol] 9.6 mg/dL Normal 8.5-10.2 [facility] Comment on above: Order Comment: Speci men Type: BLOOD SPECIMENOrdering Facility: [facility] Address: [address] [place], [place] [address] Performed By: #### 2 4323-8, 3083-03, ####[facility] [id number] [place] [address] [place] Chloride [Moles/Vol] 103 mmol/L Normal 97-105 [facility] Comment on above: Order Comment: Speci men Type: BLOOD SPECIMENOrdering Facility: [facility] Address: [address] [place], [place] [address] Performed By: #### 2 4323-8, 3083-03, ####[facility] [id number] [place] [id number] [place] CO2 [Moles/Vol] 26 mmol/L Normal 22-30 [facility] Comment on above: Order Comment: Speci men Type: BLOOD SPECIMENOrdering Facility: [facility] Address: [address] [place], [place] [address] Performed By: #### 2 4323-8, 3083-03, ####[facility] [id number] [place] [address] [place] Creatinine [Mass/Vol] 1.24 mg/dL High 0.73-1.22 [facility] Comment on above: Order Comment: Aaliyah gibson Type: BLOOD SPECIMENOrdering Facility: [facility] Address: [address] [place], [place] [address] Performed By: #### 2 4323-8, 3084-1, ####[facility] [id number] [place] [address] [place] ESTIMATED GLOMERULAR FILTRATION RATE 68 mL/min/1.73m??? Normal >=60 [facility] Comment on above: Order Comment: Aaliyah gibson Type: BLOOD SPECIMENOrdering Facility: [facility] Address: [address] [place] [address] Result Comment: Laurita mated Glomerular Filtration Rate [...] actual GFR. Performed By: #### 2 4323-8, 3083-1, ####[facility] [id number] [place] [address] [place] Glucose [Mass/Vol] 119 mg/dL High 74-99 [facility] Comment on above: Order Comment: Aaliyah gibson Type: BLOOD SPECIMENOrdering Facility: [facility] Address: [address] [place] [address] Result Comment: The [place] [employer] (ADA) provides guidance for cutoff [...] Standards of Medical Care in Diabetes 2016, [place] [employer]. Diabetes Care. 2016.39(Suppl 1). Performed By: #### 2 4323-8, 3084-1, ####[facility] [id number] [place] [address] [place] Potassium [Moles/Vol] 4.2 mmol/L Normal 3.7-5.1 [facility] Comment on above: Order Comment: Speci men Type: BLOOD SPECIMENOrdering Facility: [facility] Address: [address] [place] [address] Performed By: #### 2 4323-8, 3083-03, ####[facility] [id number] [place] [address] [place] Protein [Mass/Vol] 6.8 g/dL Normal 6.3-8.0 [facility] Comment on above: Order Comment: Aaliyah gibson Type: BLOOD SPECIMENOrdering Facility: [facility] Address: [address] [place] [address] Performed By: #### 2 4323-8, 3083-03, ####[facility] [id number] [place] [address] [place] Sodium [Moles/Vol] 139 mmol/L Normal 136-144 [facility] Comment on above: Order Comment: Speci men Type: BLOOD SPECIMENOrdering Facility: [facility] Address: [address] [place] [address] Performed By: #### 2 4323-8, 30806-06, ####[facility] [id number] [place] [id number] [place] Urea nitrogen [Mass/Vol] 15 mg/dL Normal 9-24 [facility] Comment on above: Order Comment: Speci men Type: BLOOD SPECIMENOrdering Facility: [facility] Address: [address] [place], [place] [address] Performed By: #### 2 4323-8, 3084-1, 10836-7 ####[facility] [id number] [address] [place] OF [facility] Albumin [Mass/Vol] 4.2 g/dL 3.9 - 4.9 g/dL [facility] ALP [Catalytic activity/Vol] 56 U/L 38 - 113 U/L [facility] ALT [Catalytic activity/Vol] 34 U/L 10 - 54 U/L [facility] Anion gap [Moles/Vol] 10 mmol/L 9 - 18 mmol/L [facility] AST [Catalytic activity/Vol] 18 U/L 14 - 40 U/L [facility] Bilirubin [Mass/Vol] 0.5 mg/dL 0.2 - 1 .3 mg/dL [facility] Calcium [Mass/Vol] 9.6 mg/dL 8.5 - 10. 2 mg/dL [facility] Chloride [Moles/Vol] 103 mmol/L 97 - 10 5 mmol/L [facility] CO2 [Moles/Vol] 26 mmol/L 22 - 30 mmol/L [facility] Creatinine [Mass/Vol] 1.24 mg/dL High 0.73 - 1.22 mg/dL [facility] Estimated Glomerular Filtration Rate 68 mL/min/1.73m >=60 mL/min/1.7 3m [facility] Glucose [Mass/Vol] 119 mg/dL High 74 - 99 mg/dL [facility] Potassium [Moles/Vol] 4.2 mmol/L 3.7 - 5.1 mmol/L [facility] Protein [Mass/Vol] 6.8 g/dL 6.3 - 8.0 g/dL [facility] Sodium [Moles/Vol] 139 mmol/L 136 - 144 mmol/L [facility] Urea nitrogen [Mass/Vol] 15 mg/dL 9 - 24 mg/dL [facility] LD LACTATE DEHYDROon 022 LDH [Catalytic activity/Vol] 232 U/L High 135 - 225 U/L [facility] LDH SerPl-cCncon 08-08-2021 LDH [Catalytic activity/Vol] 232 U/L High 135-225 [facility] Comment on above: Order Comment: Aaliyah gibson Type: BLOOD SPECIMENOrdering Facility: [facility] Address: [address] [place] [address] Performed By: #### 2 532-0 ####[facility] [id number] [place] [address] [place] MAGNESIUM BLDon 08-08-2021 Magnesium [Mass/Vol] 2.1 mg/dL 1.7 - 2 .3 mg/dL [facility] Magnesium SerPl-mCncon 08-08 Magnesium [Mass/Vol] 2.1 mg/dL Normal 1.7-2.3 [facility] Comment on above: Order Comment: Aaliyah gibson Type: BLOOD SPECIMENOrdering Facility: [facility] Address: [address] [place] [address] Performed By: #### 2 4323-8, 3084-1, 29825-8 ####[facility] [place] [id number] [place] [address] [place] PHOSPHORUS INORGANICon 08-08 Phosphate [Mass/Vol] 4.1 mg/dL 2.7 - 4 .8 mg/dL [facility] PT panel Coag (PPP)on 2021 INR Coag (PPP) [Relative time] 1.0 {INR} Normal 0.9-1.3 [facility] Comment on above: Order Comment: Aaliyah gibson Type: BLOOD SPECIMENOrdering Facility: [facility] Address: [address] [place], [place] [address] Result Comment: Constanza min K Antagonist (VKA) Therapeutic Range: INR 2 to 3 (Target INR of 2.5)Note: For patients treated with VKA drugs, such as warfarin, the [place] [employer] 2012 Guideline recommends [...] al. Chest 2012, 141:7S-47SNishimura RA, et al. [facility] 2017, 70: 252-289 Performed By: #### 3 4528-0, 32699-9 ####[facility] [id number] [place] [address] [place] PT Coag (PPP) [Time] 10.7 s Normal 9.7-13.0 [facility] Comment on above: Order Comment: Aaliyah gibson Type: BLOOD SPECIMENOrdering Facility: [facility] Address: [address] [place] [address] Performed By: #### 3 4528-0, 08479-8 ####[facility] [id number] [place] [address] [place] INR Coag (PPP) [Relative time] 1.0 {INR} 0.9 - 1.3 [facility] PT Coag (PPP) [Time] 10.7 s 9.7 - 1 3.0 sec [facility] Phosphate SerPl-mCncon 08-08 Phosphate [Mass/Vol] 4.1 mg/dL Normal 2.7-4.8 [facility] Comment on above: Order Comment: Aaliyah gibson Type: BLOOD SPECIMENOrdering Facility: [facility] Address: [address] [place] [address] Performed By: #### 2 777-1 ####[facility] [id number] [place] [address] [place] URIC ACID BLOODon 08-08-2021 Urate [Mass/Vol] 7.5 mg/dL 4.0 - 8.1 mg/dL [facility] Urate SerPl-mCncon Urate [Mass/Vol] 7.5 mg/dL Normal 4.0-8.1 [facility] Comment on above: Order Comment: Speci men Type: BLOOD SPECIMENOrdering Facility: [facility] Address: [address] [place] [address] Performed By: #### 2 4323-8, 3084-1, 92503-4 ####[facility] [id number] [place] [address] [place] aPTT PPPon 08-08-2021 aPTT Coag (PPP) [Time] 29.9 s Normal 23.0-32.4 [facility] Comment on above: Order Comment: Speci men Type: BLOOD SPECIMENOrdering Facility: [facility] Address: [address] [place] [address] Performed By: #### 3 4528-0, 68018-8 ####[facility] [id number] [place] [address] [place] CBC W Auto Differential pane l (Bld)on 08-06-2021 Basophils (Bld) [#/Vol] 0.03 10*3/uL Normal <0.11 [facility] Comment on above: Order Comment: Speci men Type: BLOOD SPECIMENOrdering Facility: [facility] Address: [address] [place] [address] Performed By: #### 5 7021-8 ####[facility] [place] [id number] [address] STATES OF [facility] Basophils/100 WBC (Bld) 0.5 % Normal C [facility] Comment on above: Order Comment: Speci men Type: BLOOD SPECIMENOrdering Facility: [facility] Address: [address] [place] [address] Performed By: #### 5 7021-8 ####[facility] [id number] [place] [address] [place] Differential cell count method Nom (Bld) Auto Normal [facility] Comment on above: Order Comment: Speci men Type: BLOOD SPECIMENOrdering Facility: [facility] Address: [address] [place] [address] Performed By: #### 5 7021-8 ####[facility] [place] [id number] [place] [address] [place] Eosinophils (Bld) [#/Vol] 0.05 10*3/uL Normal <0.46 [facility] Comment on above: Order Comment: Speci men Type: BLOOD SPECIMENOrdering Facility: [facility] Address: [address] [place] [address] Performed By: #### 5 7021-8 ####[facility] [place] [id number] [place] [address] [place] Eosinophils/100 WBC (Bld) 0.8 % Normal [facility] Comment on above: Order Comment: Speci men Type: BLOOD SPECIMENOrdering Facility: [facility] Address: [address] [place] [address] Performed By: #### 5 7021-8 ####[facility] [place] [id number] [place] [address] [place] Erythrocyte distribution width (RBC) [Ratio] 15.7 % High 11.5-15.0 [facility] Comment on above: Order Comment: Speci men Type: BLOOD SPECIMENOrdering Facility: [facility] Address: [address] [place] [address] Performed By: #### 5 7021-8 ####[facility] [id number] [place] [address] [place] Hematocrit (Bld) [Volume fraction] 43.7 % Normal 39.0-51.0 [facility] Comment on above: Order Comment: Speci men Type: BLOOD SPECIMENOrdering Facility: [facility] Address: [address] [place] [address] Performed By: #### 5 7021-8 ####[facility] [id number] [place] [address] [place] Hemoglobin (Bld) [Mass/Vol] 14.8 g/dL Normal 13.0-17.0 [facility] Comment on above: Order Comment: Speci men Type: BLOOD SPECIMENOrdering Facility: [facility] Address: [address] [place] [address] Performed By: #### 5 7021-8 ####[facility] [place] [id number] [place] [address] OF [facility] IMMATURE GRAN % 0.5 % Normal [facility] Comment on above: Order Comment: Speci men Type: BLOOD SPECIMENOrdering Facility: [facility] Address: [address] [place] [address] Performed By: #### 5 7021-8 ####[facility] [id number] [place] [address] IMMATURE GRAN ABS 0.03 k/uL Normal <0.10 [facility] Comment on above: Order Comment: Speci men Type: BLOOD SPECIMENOrdering Facility: [facility] Address: [address] [place], [place] [address] Performed By: #### 5 7021-8 ####[facility] [id number] [place] [address] [place] Lymphocytes (Bld) [#/Vol] 1.42 10*3/uL Normal 1.00-4.00 [facility] Comment on above: Order Comment: Speci men Type: BLOOD SPECIMENOrdering Facility: [facility] Address: [address] [place], [place] [address] Performed By: #### 5 7021-8 ####[facility] [id number] [address] STATES [facility] Lymphocytes/100 WBC (Bld) 23.2 % Normal [facility] Comment on above: Order Comment: Speci men Type: BLOOD SPECIMENOrdering Facility: [facility] Address: [address] [place] [address] Performed By: #### 5 7021-8 ####[facility] [id number] [place] [address] [place] MCH (RBC) [Entitic mass] 29.9 pg Normal 26.0-34.0 [facility] Comment on above: Order Comment: Speci men Type: BLOOD SPECIMENOrdering Facility: [facility] Address: [address] [place] [address] Performed By: #### 5 7021-8 ####[facility] [id number] [place] [address] MCHC (RBC) [Mass/Vol] 33.9 g/dL Normal 30.5-36.0 [facility] Comment on above: Order Comment: Speci men Type: BLOOD SPECIMENOrdering Facility: [facility] Address: [address] [place] [address] Performed By: #### 5 7021-8 ####[facility] [id number] [address] MCV (RBC) [Entitic vol] 88.3 fL Normal 80.0-100.0 C [facility] Comment on above: Order Comment: Speci men Type: BLOOD SPECIMENOrdering Facility: [facility] Address: [address] [place] [address] Performed By: #### 5 7021-8 ####[facility] [id number] [address] [address] [address] [place] Monocytes (Bld) [#/Vol] 0.50 10*3/uL Normal <0.87 [facility] Comment on above: Order Comment: Speci men Type: BLOOD SPECIMENOrdering Facility: [facility] Address: [address] [place] [address] Performed By: #### 5 7021-8 ####[facility] [id number] [place] [address] [place] Monocytes/100 WBC (Bld) 8.2 % Normal [facility] Comment on above: Order Comment: Speci men Type: BLOOD SPECIMENOrdering Facility: [facility] Address: [address] [place], [place] [address] Performed By: #### 5 7021-8 ####[facility] [id number] [place] [address] [place] Neutrophils (Bld) [#/Vol] 4.08 10*3/uL Normal 1.45-7.50 [facility] Comment on above: Order Comment: Speci men Type: BLOOD SPECIMENOrdering Facility: [facility] Address: [address] [place], [place] [address] Performed By: #### 5 7021-8 ####[facility] [id number] [place] [address] [place] Neutrophils/100 WBC (Bld) 66.8 % Normal [facility] Comment on above: Order Comment: Speci men Type: BLOOD SPECIMENOrdering Facility: [facility] Address: [address] [place], [place] [address] Performed By: #### 5 7021-8 ####[facility] [id number] [place] [address] [place] Nucleated RBC (Bld) [#/Vol] 10*3/uL Normal <0.01 [facility] Comment on above: Order Comment: Speci men Type: BLOOD SPECIMENOrdering Facility: [facility] Address: [address] [place], [place] [address] Performed By: #### 5 7021-8 ####[facility] [place] [id number] [place] [address] Nucleated RBC/100 WBC (Bld) [Ratio] 0.0 /100 WBC Normal [facility] Comment on above: Order Comment: Speci men Type: BLOOD SPECIMENOrdering Facility: [facility] Address: [address] [place], [place] [address] Performed By: #### 5 7021-8 ####[facility] [place] [id number] [place] [address] [place] Platelet mean volume (Bld) [Entitic vol] 10.2 fL Normal 9.0-12.7 [facility] Comment on above: Order Comment: Speci men Type: BLOOD SPECIMENOrdering Facility: [facility] Address: [address] [place], [place] [address] Performed By: #### 5 7021-8 ####[facility] [place] [id number] [place] [address] [place] Platelets (Bld) [#/Vol] 262 10*3/uL Normal 150-400 [facility] Comment on above: Order Comment: Speci men Type: BLOOD SPECIMENOrdering Facility: [facility] Address: [address] [place], [place] [address] Performed By: #### 5 7021-8 ####[facility] [id number] [place] [address] [place] RBC (Bld) [#/Vol] 4.95 10*6/uL Normal 4.20-6.00 [facility] Comment on above: Order Comment: Speci men Type: BLOOD SPECIMENOrdering Facility: [facility] Address: [address] [place], [place] [address] Performed By: #### 5 7021-8 ####[facility] [id number] [place] [address] [place] WBC (Bld) [#/Vol] 6.11 10*3/uL Normal 3.70-11.00 [facility] Comment on above: Order Comment: Speci men Type: BLOOD SPECIMENOrdering Facility: [facility] Address: [address] [place] [address] Performed By: #### 5 7021-8 ####[facility] [id number] [place] [address] [place] CNNURSEon 08-06-2021 CNNURSE Normal [facility] CNOVSPon 08-06-2021 CNOVSP Normal [facility] CT ABD/PEL W IVCONon 022 CT ABD/PEL W IVCON Normal [facility] Comprehensive metabolic 2000 panelon 08-06-2021 Albumin [Mass/Vol] 4.3 g/dL Normal 3.9-4.9 [facility] Comment on above: Order Comment: Speci men Type: BLOOD SPECIMENOrdering Facility: [facility] Address: [address] [place], [place] [address] Performed By: #### 2 4323-8, 1, ####[facility] [place] [id number] [place] [address] [place] ALP [Catalytic activity/Vol] 64 U/L Normal 38-113 [facility] Comment on above: Order Comment: Speci men Type: BLOOD SPECIMENOrdering Facility: [facility] Address: [address] [place], [place] [address] Performed By: #### 2 4323-8, 3083-, ####[facility] [id number] [place] [address] [place] ALT [Catalytic activity/Vol] 52 U/L Normal 10-54 [facility] Comment on above: Order Comment: Speci men Type: BLOOD SPECIMENOrdering Facility: [facility] Address: [address] [place], [place] [address] Performed By: #### 2 4323-8, 3083-1, ####[facility] [id number] [place] [address] [place] Anion gap [Moles/Vol] 9 mmol/L Normal 9-18 [facility] Comment on above: Order Comment: Speci men Type: BLOOD SPECIMENOrdering Facility: [facility] Address: [address] [place], [place] [address] Performed By: #### 2 4323-8, 3083-, ####[facility] [id number] [place] [address] [place] AST [Catalytic activity/Vol] 46 U/L High 14-40 [facility] Comment on above: Order Comment: Speci men Type: BLOOD SPECIMENOrdering Facility: [facility] Address: [address] [place] [address] Performed By: #### 2 4323-8, 3083-03, ####[facility] [id number] [place] [address] [place] Bilirubin [Mass/Vol] 0.3 mg/dL Normal 0.2-1.3 [facility] Comment on above: Order Comment: Speci men Type: BLOOD SPECIMENOrdering Facility: [facility] Address: [address] [place], [place] [address] Performed By: #### 2 4323-8, 3081, ####[facility] [id number] [place] [address] [place] Calcium [Mass/Vol] 9.1 mg/dL Normal 8.5-10.2 [facility] Comment on above: Order Comment: Speci men Type: BLOOD SPECIMENOrdering Facility: [facility] Address: [address] [place] [address] Performed By: #### 2 4323-8, 308-1, ####[facility] [id number] [place] [address] [place] Chloride [Moles/Vol] 107 mmol/L High 97-105 [facility] Comment on above: Order Comment: Speci men Type: BLOOD SPECIMENOrdering Facility: [facility] Address: [address] [place] [address] Performed By: #### 2 4323-8, 3083-, ####[facility] [id number] [place] [address] [place] CO2 [Moles/Vol] 25 mmol/L Normal 22-30 [facility] Comment on above: Order Comment: Speci men Type: BLOOD SPECIMENOrdering Facility: [facility] Address: [address] [place] [address] Performed By: #### 2 4323-8, 3083-, ####[facility] [id number] [place] [address] [place] Creatinine [Mass/Vol] 1.24 mg/dL High 0.73-1.22 [facility] Comment on above: Order Comment: Speci men Type: BLOOD SPECIMENOrdering Facility: [facility] Address: [address] [place] [address] Performed By: #### 2 4323-8, 3081, ####[facility] [id number] [place] [address] [place] ESTIMATED GLOMERULAR FILTRATION RATE 68 mL/min/1.73m??? Normal >=60 [facility] Comment on above: Order Comment: Speci men Type: BLOOD SPECIMENOrdering Facility: [facility] Address: [address] [place], [place] [address] Result Comment: Laurita mated Glomerular Filtration Rate [...] actual GFR. Performed By: #### 2 4323-8, 3083-1, ####[facility] [place] [id number] [place] [address] [place] Glucose [Mass/Vol] 121 mg/dL High 74-99 [facility] Comment on above: Order Comment: Speci men Type: BLOOD SPECIMENOrdering Facility: [facility] Address: [address] [place], [place] [address] Result Comment: The [place] [employer] (ADA) provides guidance for cutoff [...] Standards of Medical Care in Diabetes 2016, [place] [employer]. Diabetes Care. 2016.39(Suppl 1). Performed By: #### 2 4323-8, 308-1, ####[facility] [id number] [place] [id number] [place] Potassium [Moles/Vol] 4.6 mmol/L Normal 3.7-5.1 [facility] Comment on above: Order Comment: Speci men Type: BLOOD SPECIMENOrdering Facility: [facility] Address: [address] [place], [place] [address] Performed By: #### 2 4323-8, 3084-1, ####[facility] [id number] [place] [address] [place] Protein [Mass/Vol] 6.9 g/dL Normal 6.3-8.0 [facility] Comment on above: Order Comment: Speci men Type: BLOOD SPECIMENOrdering Facility: [facility] Address: [address] [place], [place] [address] Performed By: #### 2 4323-8, 3084-1, ####[facility] [id number] [place] [address] [place] Sodium [Moles/Vol] 141 mmol/L Normal 136-144 [facility] Comment on above: Order Comment: Speci men Type: BLOOD SPECIMENOrdering Facility: [facility] Address: [address] [place], [place] [address] Performed By: #### 2 4323-8, 3084-1, ####[facility] [id number] [place] [address] [place] Urea nitrogen [Mass/Vol] 20 mg/dL Normal 9-24 [facility] Comment on above: Order Comment: Speci men Type: BLOOD SPECIMENOrdering Facility: [facility] Address: [address] [place] [address] Performed By: #### 2 4323-8, 308-1, ####[facility] [id number] [place] [id number] [place] LDH SerPl-cCncon 08-06-2021 LDH [Catalytic activity/Vol] 260 U/L High 135-225 [facility] Comment on above: Order Comment: Speci men Type: BLOOD SPECIMENOrdering Facility: [facility] Address: [address] [place] [address] Performed By: #### 2 532-0 ####[facility] [id number] [address] Magnesium SerPl-mCncon 08-06 Magnesium [Mass/Vol] 2.4 mg/dL High 1.7-2.3 [facility] Comment on above: Order Comment: Speci men Type: BLOOD SPECIMENOrdering Facility: [facility] Address: [address] [place] [address] Performed By: #### 2 4323-8, 3084-1, 17757-0 ####[facility] [id number] [address] PT panel Coag (PPP)on 2021 INR Coag (PPP) [Relative time] 1.0 {INR} Normal 0.9-1.3 [facility] Comment on above: Order Comment: Speci men Type: BLOOD SPECIMENOrdering Facility: [facility] Address: [address] [place] [address] Result Comment: Constanza min K Antagonist (VKA) Therapeutic Range: INR 2 to 3 (Target INR of 2.5)Note: For patients treated with VKA drugs, such as warfarin, the [place] [employer] 2012 Guideline recommends [...] 3).Lars GH, et al. Chest 2012, 141:7S-47SCaitie WHALEN, et al. [facility] 2017, 70: 252-289 Performed By: #### 3 4528-0, 83936-6 ####[facility] LABIA [id number] [place] [address] [place] PT Coag (PPP) [Time] 10.7 s Normal 9.7-13.0 [facility] Comment on above: Order Comment: Speci men Type: BLOOD SPECIMENOrdering Facility: [facility] Address: [address] [place] [address] Performed By: #### 3 4528-0, 10430-9 ####[facility] [id number] [place] [address] [place] Phosphate SerPl-mCncon 08-06 Phosphate [Mass/Vol] 3.8 mg/dL Normal 2.7-4.8 [facility] Comment on above: Order Comment: Speci men Type: BLOOD SPECIMENOrdering Facility: [facility] Address: [address] [place] [address] Performed By: #### 2 777-1 ####[facility] [id number] [place] [address] [place] T3 FREE BLDon 08-06-2021 Free T3 [Mass/Vol] 2.9 pg/mL Normal 2.3-4.1 [facility] Comment on above: Order Comment: Speci men Type: BLOOD SPECIMENOrdering Facility: [facility] Address: [address] [place] [address] Performed By: #### F T4, FREET3 ####[facility] [id number] [place] [address] [place] T4 FREE/FREE THYROXon 2021 Free T4 [Mass/Vol] 1.0 ng/dL Normal 0.9-1.7 [facility] [place] Comment on above: Order Comment: Speci men Type: BLOOD SPECIMENOrdering Facility: [facility] Address: [address] [place] [address] Performed By: #### F T4, FREET3 ####[facility] [id number] [place] [address] [place] TSH SerPl-aCncon 08-06-2021 TSH Qn 1.770 m[IU]/L Normal 0.270-4.20 0 [facility] Comment on above: Order Comment: Speci men Type: BLOOD SPECIMENOrdering Facility: [facility] Address: [address] [place], [place] [address] Performed By: #### 3 016-3 ####[facility] [id number] [place] [address] [place] Urate SerPl-mCncon 2 Urate [Mass/Vol] 7.2 mg/dL Normal 4.0-8.1 [facility] Comment on above: Order Comment: Speci men Type: BLOOD SPECIMENOrdering Facility: [facility] Address: [address] [place] [address] Performed By: #### 2 4323-8, 3084-1, 07780-0 ####[facility] [id number] [place] [address] [place] aPTT PPPon 08-06-2021 aPTT Coag (PPP) [Time] 28.8 s Normal 23.0-32.4 [facility] Comment on above: Order Comment: Speci men Type: BLOOD SPECIMENOrdering Facility: [facility] Address: [address] [place] [address] Performed By: #### 3 4528-0, 99818-0 ####[facility] [id number] [place] [address] [place] CNPNon 08-03-2021 CNPN Normal [facility] CNOVon 07-31-2021 CNOV Normal [facility] CNOV Normal [facility] NURSING PROGon 07-31-2021 NURSING PROG Normal [facility] CNPNon 07-30-2021 CNPN Normal [facility] CNPNon 07-29-2021 CNPN Normal [facility] CNPNon 07-25-2021 CNPN Normal [facility] CBC W Auto Differential pane l (Bld)on 07-24-2021 Basophils (Bld) [#/Vol] 0.04 10*3/uL Normal <0.11 [facility] Comment on above: Order Comment: Speci men Type: BLOOD SPECIMENOrdering Facility: [facility] Address: [address] [place] [address] Performed By: #### 5 7021-8 ####[facility] [id number] [place] [address] [place] Basophils/100 WBC (Bld) 0.3 % Normal [facility] Comment on above: Order Comment: Speci men Type: BLOOD SPECIMENOrdering Facility: [facility] Address: [address] [place] [address] Performed By: #### 5 7021-8 ####[facility] [place] [id number] [place] [address] [place] Differential cell count method Nom (Bld) Auto Normal [facility] Comment on above: Order Comment: Speci men Type: BLOOD SPECIMENOrdering Facility: [facility] Address: [address] [place] [address] Performed By: #### 5 7021-8 ####[facility] [place] [id number] [place] [address] [place] Eosinophils (Bld) [#/Vol] 10*3/uL Normal <0.46 [facility] Comment on above: Order Comment: Speci men Type: BLOOD SPECIMENOrdering Facility: [facility] Address: [address] [place] [address] Performed By: #### 5 7021-8 ####[facility] [id number] [address], [place] [address] [place] Eosinophils/100 WBC (Bld) 0.1 % Normal [facility] Comment on above: Order Comment: Speci men Type: BLOOD SPECIMENOrdering Facility: [facility] Address: [address] [place], [place] [address] Performed By: #### 5 7021-8 ####[facility] [id number] [address] [place] Erythrocyte distribution width (RBC) [Ratio] 15.9 % High 11.5-15.0 [facility] Comment on above: Order Comment: Speci men Type: BLOOD SPECIMENOrdering Facility: [facility] Address: [address] [place], [place] [address] Performed By: #### 5 7021-8 ####[facility] [place] [facility] [id number] [place] [address] [place] Hematocrit (Bld) [Volume fraction] 43.2 % Normal 39.0-51.0 [facility] Comment on above: Order Comment: Speci men Type: BLOOD SPECIMENOrdering Facility: [facility] Address: [address] [place], [place] [address] Performed By: #### 5 7021-8 ####[facility] [place] [facility] [id number] [place] [address] [place] Hemoglobin (Bld) [Mass/Vol] 14.7 g/dL Normal 13.0-17.0 [facility] Comment on above: Order Comment: Speci men Type: BLOOD SPECIMENOrdering Facility: [facility] Address: [address] [place], [place] [address] Performed By: #### 5 7021-8 ####[facility] [place] [facility] [id number] [place] [address] [place] IMMATURE GRAN % 0.9 % Normal [facility] Comment on above: Order Comment: Speci men Type: BLOOD SPECIMENOrdering Facility: [facility] Address: [address] [place], [place] [address] Performed By: #### 5 7021-8 ####[facility] [place] [facility] [id number] [place] [address] [place] IMMATURE GRAN ABS 0.10 k/uL High <0.10 [facility] Comment on above: Order Comment: Speci men Type: BLOOD SPECIMENOrdering Facility: [facility] Address: [address] [place], [place] [address] Performed By: #### 5 7021-8 ####[facility] [place] [facility] [id number] [place] [address] OF [facility] Lymphocytes (Bld) [#/Vol] 2.16 10*3/uL Normal 1.00-4.00 [facility] Comment on above: Order Comment: Speci men Type: BLOOD SPECIMENOrdering Facility: [facility] Address: [address] [place], [place] [address] Performed By: #### 5 7021-8 ####[facility] [place] [id number] [place] [address] Lymphocytes/100 WBC (Bld) 18.7 % Normal [facility] Comment on above: Order Comment: Speci men Type: BLOOD SPECIMENOrdering Facility: [facility] Address: [address] [place], [place] [address] Performed By: #### 5 7021-8 ####[facility] [id number] [place] [address] [place] MCH (RBC) [Entitic mass] 29.9 pg Normal 26.0-34.0 [facility] Comment on above: Order Comment: Speci men Type: BLOOD SPECIMENOrdering Facility: [facility] Address: [address] [place], [place] [address] Performed By: #### 5 7021-8 ####[facility] [id number] [place] [address] [place] MCHC (RBC) [Mass/Vol] 34.0 g/dL Normal 30.5-36.0 [facility] Comment on above: Order Comment: Speci men Type: BLOOD SPECIMENOrdering Facility: [facility] Address: [address] [place] [address] Performed By: #### 5 7021-8 ####[facility] [place] [id number] [place] [address] OF [facility] MCV (RBC) [Entitic vol] 88.0 fL Normal 80.0-100.0 [facility] Comment on above: Order Comment: Speci men Type: BLOOD SPECIMENOrdering Facility: [facility] Address: [address] [place] [address] Performed By: #### 5 7021-8 ####[facility] [place] [id number] [place] [address] [place] Monocytes (Bld) [#/Vol] 0.79 10*3/uL Normal <0.87 [facility] Comment on above: Order Comment: Speci men Type: BLOOD SPECIMENOrdering Facility: [facility] Address: [address] [place], [place] [address] Performed By: #### 5 7021-8 ####[facility] [id number] [place] [address] [place] Monocytes/100 WBC (Bld) 6.8 % Normal [facility] Comment on above: Order Comment: Speci men Type: BLOOD SPECIMENOrdering Facility: [facility] Address: [address] [place], [place] [address] Performed By: #### 5 7021-8 ####[facility] [id number] [place] [address] [place] Neutrophils (Bld) [#/Vol] 8.45 10*3/uL High 1.45-7.50 [facility] Comment on above: Order Comment: Speci men Type: BLOOD SPECIMENOrdering Facility: [facility] Address: [address] [place], [place] [address] Performed By: #### 5 7021-8 ####[facility] [id number] [place] [address] Neutrophils/100 WBC (Bld) 73.2 % Normal [facility] Comment on above: Order Comment: Speci men Type: BLOOD SPECIMENOrdering Facility: [facility] Address: [address] [place], [place] [address] Performed By: #### 5 7021-8 ####[facility] [id number] [place] [address] [place] Nucleated RBC (Bld) [#/Vol] 10*3/uL Normal <0.01 [facility] Comment on above: Order Comment: Speci men Type: BLOOD SPECIMENOrdering Facility: [facility] Address: [address] [place], [place] [address] Performed By: #### 5 7021-8 ####[facility] [id number] [place] [address] Nucleated RBC/100 WBC (Bld) [Ratio] 0.0 /100 WBC Normal [facility] Comment on above: Order Comment: Speci men Type: BLOOD SPECIMENOrdering Facility: [facility] Address: [address] [place], [place] [address] Performed By: #### 5 7021-8 ####[facility] [id number] [place] [address] Platelet mean volume (Bld) [Entitic vol] 10.5 fL Normal 9.0-12.7 [facility] Comment on above: Order Comment: Speci men Type: BLOOD SPECIMENOrdering Facility: [facility] Address: [address] [place], [place] [address] Performed By: #### 5 7021-8 ####[facility] [id number] [place] [address] [place] Platelets (Bld) [#/Vol] 241 10*3/uL Normal 150-400 [facility] Comment on above: Order Comment: Speci men Type: BLOOD SPECIMENOrdering Facility: [facility] Address: [address] [place] [address] Performed By: #### 5 7021-8 ####[facility] [id number] [place] [address] [place] RBC (Bld) [#/Vol] 4.91 10*6/uL Normal 4.20-6.00 [facility] Comment on above: Order Comment: Speci men Type: BLOOD SPECIMENOrdering Facility: [facility] Address: [address] [place] [address] Performed By: #### 5 7021-8 ####[facility] [id number] [place] [address] [place] WBC (Bld) [#/Vol] 11.55 10*3/uL High 3.70-11.00 [facility] Comment on above: Order Comment: Speci men Type: BLOOD SPECIMENOrdering Facility: [facility] Address: [address] [place] [address] Performed By: #### 5 7021-8 ####[facility] [id number] [place] [address] [place] CNNURSEon 07-24-2021 CNNURSE Normal [facility] CNOVSPon 07-24-2021 CNOVSP Normal [facility] CNPNon 07-24-2021 CNPN Normal [facility] Comprehensive metabolic 2000 panelon 07-24-2021 Albumin [Mass/Vol] 4.0 g/dL Normal 3.9-4.9 [facility] Comment on above: Order Comment: Speci men Type: BLOOD SPECIMENOrdering Facility: [facility] Address: [address] [place], [place] [address] Performed By: #### 2 4323-8, 83749-0, 3083- ####[facility] LABCLIA [id number] [place] [id number] [place] ALP [Catalytic activity/Vol] 64 U/L Normal 38-113 [facility] Comment on above: Order Comment: Speci men Type: BLOOD SPECIMENOrdering Facility: [facility] Address: [address] [place], [place] [address] Performed By: #### 2 4323-8, , 3083-03 ####[facility] LABCLIA [id number] [place] [address] [place] ALT [Catalytic activity/Vol] 36 U/L Normal 10-54 [facility] Comment on above: Order Comment: Speci men Type: BLOOD SPECIMENOrdering Facility: [facility] Address: [address] [place], [place] [address] Performed By: #### 2 4323-8, , 3083-03 ####[facility] LABCLIA [id number] [place] [address] [place] Anion gap [Moles/Vol] 11 mmol/L Normal 9-18 [facility] Comment on above: Order Comment: Speci men Type: BLOOD SPECIMENOrdering Facility: [facility] Address: [address] [place], [place] [address] Performed By: #### 2 4323-8, 80655-1, 3083-03 ####[facility] LABCLIA [id number] [place] [address] [place] AST [Catalytic activity/Vol] 25 U/L Normal 14-40 [facility] Comment on above: Order Comment: Speci men Type: BLOOD SPECIMENOrdering Facility: [facility] Address: [address] [place], [place] [address] Result Comment: Resu lts may be falsely increased due to interference from hemolysis. Suggest reorder as clinically indicated. Performed By: #### 2 4323-8, , 3083-03 ####[facility] LABCLIA [id number] [place] [address] [place] Bilirubin [Mass/Vol] 0.2 mg/dL Normal 0.2-1.3 [facility] Comment on above: Order Comment: Speci men Type: BLOOD SPECIMENOrdering Facility: [facility] Address: [address] [place], [place] [address] Performed By: #### 2 4323-8, , 3083-03 ####[facility] LABIA [id number] [place] [address] [place] Calcium [Mass/Vol] 9.2 mg/dL Normal 8.5-10.2 [facility] Comment on above: Order Comment: Speci men Type: BLOOD SPECIMENOrdering Facility: [facility] Address: [address] [place], [place] [address] Performed By: #### 2 4323-8, , 3083-03 ####[facility] LABIA [id number] [place] [address] [place] Chloride [Moles/Vol] 104 mmol/L Normal 97-105 [facility] Comment on above: Order Comment: Speci men Type: BLOOD SPECIMENOrdering Facility: [facility] Address: [address] [place], [place] [address] Performed By: #### 2 4323-8, , 3083-03 ####[facility] LABCLIA [id number] [place] [address] [place] CO2 [Moles/Vol] 26 mmol/L Normal 22-30 [facility] Comment on above: Order Comment: Speci men Type: BLOOD SPECIMENOrdering Facility: [facility] Address: [address] [place] [id number] Performed By: #### 2 4323-8, , 3083-03 ####[facility] LABCLIA [id number] [address] [address] [place] Creatinine [Mass/Vol] 1.03 mg/dL Normal 0.73-1.22 [facility] Comment on above: Order Comment: Speci men Type: BLOOD SPECIMENOrdering Facility: [facility] Address: [address] [place], [place] [address] Performed By: #### 2 4323-8, , 3083-03 ####[facility] LABIA [id number] [place] [address] [place] ESTIMATED GLOMERULAR FILTRATION RATE 85 mL/min/1.73m??? Normal >=60 [facility] Comment on above: Order Comment: Speci men Type: BLOOD SPECIMENOrdering Facility: [facility] Address: [address] [place], [place] [address] Result Comment: Laurita mated Glomerular Filtration Rate [...] Performed By: #### 2 4323-8, , 3083-03 ####[facility] LABIA [id number] [address] [address] [place] Glucose [Mass/Vol] 103 mg/dL High 74-99 [facility] Comment on above: Order Comment: Speci men Type: BLOOD SPECIMENOrdering Facility: [facility] Address: [address] [place] [id number] Result Comment: The [place] [employer] (ADA) provides guidance for cutoff [...] Standards of Medical Care in Diabetes 2016, [place] [employer]. Diabetes Care. 2016.39(Suppl 1). Performed By: #### 2 4323-8, 39612-7, 3083- ####[facility] LABIA [id number] [place] [address] [place] Potassium [Moles/Vol] 4.1 mmol/L Normal 3.7-5.1 [facility] Comment on above: Order Comment: Speci men Type: BLOOD SPECIMENOrdering Facility: [facility] Address: [address] [place] [address] Performed By: #### 2 4323-8, , 3083-03 ####[facility] LABIA [id number] [place] [address] [place] Protein [Mass/Vol] 6.6 g/dL Normal 6.3-8.0 [facility] Comment on above: Order Comment: Speci men Type: BLOOD SPECIMENOrdering Facility: [facility] Address: [address] [place] [address] Performed By: #### 2 4323-8, , 3083-03 ####[facility] LABIA [id number] [place] [address] [place] Sodium [Moles/Vol] 141 mmol/L Normal 136-144 [facility] Comment on above: Order Comment: Speci men Type: BLOOD SPECIMENOrdering Facility: [facility] Address: [address] [place], [place] [address] Performed By: #### 2 4323-8, 44850-7, 3084-1 ####[facility] LABIA [id number] [place] [address] [place] Urea nitrogen [Mass/Vol] 22 mg/dL Normal 9-24 [facility] Comment on above: Order Comment: Speci men Type: BLOOD SPECIMENOrdering Facility: [facility] Address: [address] [place], [place] [address] Performed By: #### 2 4323-8, 67051-6, 3084-1 ####[facility] LABIA [id number] [place] [address] [place] LDH SerPl-cCncon 07-24-2021 LDH [Catalytic activity/Vol] 217 U/L Normal 135-225 [facility] Comment on above: Order Comment: Speci men Type: BLOOD SPECIMENOrdering Facility: [facility] Address: [address] [place] [address] Performed By: #### 2 532-0 ####[facility] [id number] [place] [address] [place] Magnesium SerPl-mCncon 07-24 Magnesium [Mass/Vol] 2.3 mg/dL Normal 1.7-2.3 [facility] Comment on above: Order Comment: Speci men Type: BLOOD SPECIMENOrdering Facility: [facility] Address: [address] [place], [place] [address] Performed By: #### 2 4323-8, 32040-3, 3084-1 ####[facility] LABIA [id number] [place] [address] [place] PT panel Coag (PPP)on 2021 INR Coag (PPP) [Relative time] 1.0 {INR} Normal 0.9-1.3 [facility] Comment on above: Order Comment: Speci men Type: BLOOD SPECIMENOrdering Facility: [facility] Address: [place] [address] Result Comment: Constanza min K Antagonist (VKA) Therapeutic Range: INR 2 to 3 (Target INR of 2.5)Note: For patients treated with VKA drugs, such as warfarin, the [place] [employer] 2012 Guideline recommends [...] al. Chest 2012, 141:7S-47SNishnini RA, et al. [facility] 2017, 70: 252-289 Performed By: #### 3 4528-0, 10997-8 ####[facility] LABIA [id number] [place] [address] [place] PT Coag (PPP) [Time] 10.5 s Normal 9.7-13.0 [facility] Comment on above: Order Comment: Speci men Type: BLOOD SPECIMENOrdering Facility: [facility] Address: [address] [place], [place] [address] Performed By: #### 3 4528-0, 36482-2 ####[facility] LABIA [id number] [place] [id number] [place] Phosphate SerPl-mCncon 07-24 Phosphate [Mass/Vol] 3.1 mg/dL Normal 2.7-4.8 [facility] Comment on above: Order Comment: Rnoyi men Type: BLOOD SPECIMENOrdering Facility: [facility] Address: [address] [place], [place] [address] Performed By: #### 2 777-1 ####[facility] LABCLIA [id number] [place] [address] [place] Urate SerPl-mCncon Urate [Mass/Vol] 6.4 mg/dL Normal 4.0-8.1 [facility] Comment on above: Order Comment: Speci men Type: BLOOD SPECIMENOrdering Facility: [facility] Address: [address] [place] [address] Performed By: #### 2 4323-8, 93761-6, 3084-1 ####[facility] LABIA [id number] [place] [address] [place] aPTT PPPon 07-24-2021 aPTT Coag (PPP) [Time] 27.5 s Normal 23.0-32.4 [facility] Comment on above: Order Comment: Speci men Type: BLOOD SPECIMENOrdering Facility: [facility] Address: [address] [place] [address] Performed By: #### 3 4528-0, 66952-4 ####[facility] [id number] [place] [address] [place] CNPNon 07-23-2021 CNPN Normal [facility] ACTIVATED PTTon 07-21-2021 aPTT Coag (PPP) [Time] 29.1 s 23.0 - 32.4 sec [facility] CBC W Auto Differential pane l (Bld)on 07-21-2021 Basophils (Bld) [#/Vol] 0.04 10*3/uL Normal <0.11 [facility] Comment on above: Order Comment: Speci men Type: BLOOD SPECIMENOrdering Facility: [facility] Address: [address] [place] [address] Performed By: #### 5 7021-8 ####[facility] [id number] [place] [address] [place] Basophils/100 WBC (Bld) 0.5 % Normal C [facility] Comment on above: Order Comment: Speci men Type: BLOOD SPECIMENOrdering Facility: [facility] Address: [address] [place], [place] [address] Performed By: #### 5 7021-8 ####[facility] [place] [id number] [place] [address] [place] Differential cell count method Nom (Bld) Auto Normal [facility] Comment on above: Order Comment: Speci men Type: BLOOD SPECIMENOrdering Facility: [facility] Address: [address] [place], [place] [address] Performed By: #### 5 7021-8 ####[facility] [place] [id number] [place] [address] [place] Eosinophils (Bld) [#/Vol] 0.05 10*3/uL Normal <0.46 [facility] Comment on above: Order Comment: Speci men Type: BLOOD SPECIMENOrdering Facility: [facility] Address: [address] [place], [place] [address] Performed By: #### 5 7021-8 ####[facility] [place] [id number] [place] [address] [place] Eosinophils/100 WBC (Bld) 0.7 % Normal [facility] Comment on above: Order Comment: Speci men Type: BLOOD SPECIMENOrdering Facility: [facility] Address: [address] [place], [place] [address] Performed By: #### 5 7021-8 ####[facility] [place] [id number] [place] [address] [place] Erythrocyte distribution width (RBC) [Ratio] 15.5 % High 11.5-15.0 [facility] Comment on above: Order Comment: Speci men Type: BLOOD SPECIMENOrdering Facility: [facility] Address: [address] [place], [place] [id number] Performed By: #### 5 7021-8 ####[facility] [id number] [address] Hematocrit (Bld) [Volume fraction] 45.5 % Normal 39.0-51.0 [facility] Comment on above: Order Comment: Speci men Type: BLOOD SPECIMENOrdering Facility: [facility] Address: [address] [place] [address] Performed By: #### 5 7021-8 ####[facility] [id number] [place] [address] [facility] Hemoglobin (Bld) [Mass/Vol] 15.1 g/dL Normal 13.0-17.0 [facility] Comment on above: Order Comment: Speci men Type: BLOOD SPECIMENOrdering Facility: [facility] Address: [address] [place] [address] Performed By: #### 5 7021-8 ####[facility] [id number] [place] [address] IMMATURE GRAN % 0.8 % Normal [facility] Comment on above: Order Comment: Speci men Type: BLOOD SPECIMENOrdering Facility: [facility] Address: [address] [place] [address] Performed By: #### 5 7021-8 ####[facility] [id number] [place] [address] IMMATURE GRAN ABS 0.06 k/uL Normal <0.10 [facility] Comment on above: Order Comment: Speci men Type: BLOOD SPECIMENOrdering Facility: [facility] Address: [address] [place] [address] Performed By: #### 5 7021-8 ####[facility] [id number] [place] [address] OF POP Lymphocytes (Bld) [#/Vol] 2.22 10*3/uL Normal 1.00-4.00 [facility] Comment on above: Order Comment: Speci men Type: BLOOD SPECIMENOrdering Facility: [facility] Address: [address] [place] [address] Performed By: #### 5 7021-8 ####[facility] [id number] [address] Lymphocytes/100 WBC (Bld) 28.9 % Normal [facility] Comment on above: Order Comment: Speci men Type: BLOOD SPECIMENOrdering Facility: [facility] Address: [address] [place] [address] Performed By: #### 5 7021-8 ####[facility] [id number] [place] [address] [place] MCH (RBC) [Entitic mass] 30.1 pg Normal 26.0-34.0 [facility] Comment on above: Order Comment: Speci men Type: BLOOD SPECIMENOrdering Facility: [facility] Address: [address] [place] [address] Performed By: #### 5 7021-8 ####[facility] [id number] [place] [address] [place] [facility] MCHC (RBC) [Mass/Vol] 33.2 g/dL Normal 30.5-36.0 [facility] Comment on above: Order Comment: Speci men Type: BLOOD SPECIMENOrdering Facility: [facility] Address: [address] [place], [place] [address] Performed By: #### 5 7021-8 ####[facility] [id number] [place] [address] MCV (RBC) [Entitic vol] 90.6 fL Normal 80.0-100.0 [facility] Comment on above: Order Comment: Speci men Type: BLOOD SPECIMENOrdering Facility: [facility] Address: [address] [place], [place] [address] Performed By: #### 5 7021-8 ####[facility] [id number] [place] [address] [place] Monocytes (Bld) [#/Vol] 0.52 10*3/uL Normal <0.87 [facility] Comment on above: Order Comment: Speci men Type: BLOOD SPECIMENOrdering Facility: [facility] Address: [address] [place] [address] Performed By: #### 5 7021-8 ####[facility] [id number] [place] [address] OF POP Monocytes/100 WBC (Bld) 6.8 % Normal [facility] Comment on above: Order Comment: Speci men Type: BLOOD SPECIMENOrdering Facility: [facility] Address: [address] [place], [place] [address] Performed By: #### 5 7021-8 ####[facility] [id number] [place] [address] [place] Neutrophils (Bld) [#/Vol] 4.79 10*3/uL Normal 1.45-7.50 [facility] Comment on above: Order Comment: Speci men Type: BLOOD SPECIMENOrdering Facility: [facility] Address: [address] [place], [place] [address] Performed By: #### 5 7021-8 ####[facility] [id number] [address] STATES [place] Neutrophils/100 WBC (Bld) 62.3 % Normal [facility] Comment on above: Order Comment: Speci men Type: BLOOD SPECIMENOrdering Facility: [facility] Address: [address] [place], [place] [address] Performed By: #### 5 7021-8 ####[facility] [id number] [place] [address] [place] Nucleated RBC (Bld) [#/Vol] 10*3/uL Normal <0.01 [facility] Comment on above: Order Comment: Speci men Type: BLOOD SPECIMENOrdering Facility: [facility] Address: [address] [place] [address] Performed By: #### 5 7021-8 ####[facility] [id number] [place] [address] [place] Nucleated RBC/100 WBC (Bld) [Ratio] 0.0 /100 WBC Normal [facility] Comment on above: Order Comment: Speci men Type: BLOOD SPECIMENOrdering Facility: [facility] Address: [address] [place] [address] Performed By: #### 5 7021-8 ####[facility] [id number] [place] [address] [place] Platelet mean volume (Bld) [Entitic vol] 10.8 fL Normal 9.0-12.7 [facility] Comment on above: Order Comment: Speci men Type: BLOOD SPECIMENOrdering Facility: [facility] Address: [address] [place], [place] [address] Performed By: #### 5 7021-8 ####[facility] [id number] [place] [address] [place] Platelets (Bld) [#/Vol] 245 10*3/uL Normal 150-400 [facility] Comment on above: Order Comment: Speci men Type: BLOOD SPECIMENOrdering Facility: [facility] Address: [address] [place], [place] [address] Performed By: #### 5 7021-8 ####[facility] [id number] [place] [address] [place] RBC (Bld) [#/Vol] 5.02 10*6/uL Normal 4.20-6.00 [facility] Comment on above: Order Comment: Speci men Type: BLOOD SPECIMENOrdering Facility: [facility] Address: [address] [place] [address] Performed By: #### 5 7021-8 ####[facility] [id number] [address] STATES OF [place] WBC (Bld) [#/Vol] 7.68 10*3/uL Normal 3.70-11.00 [facility] Comment on above: Order Comment: Speci men Type: BLOOD SPECIMENOrdering Facility: [facility] Address: [address] [place] [address] Performed By: #### 5 7021-8 ####[facility] [id number] [place] [address] [place] Abs Immature Gran 0.06 k/uL <0.10 k/uL [facility] Basophils (Bld) [#/Vol] 0.04 10*3/uL <0.11 k/uL [facility] Basophils/100 WBC (Bld) 0.5 % [facility] Differential cell count method Nom (Bld) Auto [facility] Eosinophils (Bld) [#/Vol] 0.05 10*3/uL <0.46 k/uL [facility] Eosinophils/100 WBC (Bld) 0.7 % [facility] Erythrocyte distribution width (RBC) [Ratio] 15.5 % High 11.5 - 15.0 % [facility] Hematocrit (Bld) [Volume fraction] 45.5 % 39.0 - 51.0 % [facility] Hemoglobin (Bld) [Mass/Vol] 15.1 g/dL 13.0 - 17.0 g/dL [facility] Immature Gran % 0.8 % [facility] Lymphocytes (Bld) [#/Vol] 2.22 10*3/uL 1.00 - 4.00 k/uL [facility] Lymphocytes/100 WBC (Bld) 28.9 % [facility] MCH (RBC) [Entitic mass] 30.1 pg 26.0 - 34.0 pg [facility] MCHC (RBC) [Mass/Vol] 33.2 g/dL 30.5 - 36.0 g/dL [facility] MCV (RBC) [Entitic vol] 90.6 fL 80.0 - 100.0 fL [facility] Monocytes (Bld) [#/Vol] 0.52 10*3/uL <0.87 k/uL [facility] Monocytes/100 WBC (Bld) 6.8 % [facility] Neutrophils (Bld) [#/Vol] 4.79 10*3/uL 1.45 - 7.50 k/uL [facility] Neutrophils/100 WBC (Bld) 62.3 % [facility] Nucleated RBC (Bld) [#/Vol] 10*3/uL <0.01 k/uL [facility] Nucleated RBC/100 WBC (Bld) [Ratio] 0.0 /100 WBC [facility] Platelet mean volume (Bld) [Entitic vol] 10.8 fL 9.0 - 12.7 fL [facility] Platelets (Bld) [#/Vol] 245 10*3/uL 150 - 400 k/uL [facility] RBC (Bld) [#/Vol] 5.02 10*6/uL 4.20 - 6.00 m/uL [facility] WBC (Bld) [#/Vol] 7.68 10*3/uL 3.70 - 11.00 k/uL [facility] CNNURSEon 07-21-2021 CNNURSE Normal [facility] CNPNon 07-21-2021 CNPN Normal [facility] CT CHEST W IVCONon 2 CT CHEST W IVCON Normal [facility] Comprehensive metabolic 2000 panelon 07-21-2021 Albumin [Mass/Vol] 4.0 g/dL Normal 3.9-4.9 [facility] Comment on above: Order Comment: Speci men Type: BLOOD SPECIMENOrdering Facility: [facility] Address: [address] [place], [place] [phone] Performed By: #### 1 9123-9, 94710-0, 3084-1 ####[facility] [id number] [address] [id number] [address] [place] ALP [Catalytic activity/Vol] 57 U/L Normal 38-113 [facility] Comment on above: Order Comment: Speci men Type: BLOOD SPECIMENOrdering Facility: [facility] Address: [address] [place], [place] [address] Performed By: #### 1 9123-9, 43109-5, 3083-1 ####[facility] [id number] [place] [address] [place] ALT [Catalytic activity/Vol] 26 U/L Normal 10-54 [facility] Comment on above: Order Comment: Speci men Type: BLOOD SPECIMENOrdering Facility: [facility] Address: [address] [place] [address] Performed By: #### 1 9123-9, 77318-6, 3083- ####[facility] [id number] [place] [address] [place] Anion gap [Moles/Vol] 10 mmol/L Normal 9-18 [facility] Comment on above: Order Comment: Speci men Type: BLOOD SPECIMENOrdering Facility: [facility] Address: [address] [place], [place] [address] Performed By: #### 1 9123-9, 40285-4, 3083- ####[facility] [id number] [place] [address] [place] AST [Catalytic activity/Vol] 18 U/L Normal 14-40 [facility] Comment on above: Order Comment: Speci men Type: BLOOD SPECIMENOrdering Facility: [facility] Address: [address] [place], [place] [address] Performed By: #### 1 9123-9, 38612-7, 308-1 ####[facility] [id number] [place] [id number] [place] Bilirubin [Mass/Vol] 0.5 mg/dL Normal 0.2-1.3 [facility] Comment on above: Order Comment: Speci men Type: BLOOD SPECIMENOrdering Facility: [facility] Address: [address] [place], [place] [address] Performed By: #### 1 9123-9, 13450-2, 3083- ####[facility] [id number] [place] [address] [place] Calcium [Mass/Vol] 9.4 mg/dL Normal 8.5-10.2 [facility] Comment on above: Order Comment: Speci men Type: BLOOD SPECIMENOrdering Facility: [facility] Address: [address] [place] [address] Performed By: #### 1 9123-9, 48863-6, 3083- ####[facility] [id number] [place] [address] [place] Chloride [Moles/Vol] 102 mmol/L Normal 97-105 [facility] Comment on above: Order Comment: Speci men Type: BLOOD SPECIMENOrdering Facility: [facility] Address: [address] [place], [place] [address] Performed By: #### 1 9123-9, 89525-5, 3083-03 ####[facility] [id number] [place] [address] [place] CO2 [Moles/Vol] 28 mmol/L Normal 22-30 [facility] Comment on above: Order Comment: Speci men Type: BLOOD SPECIMENOrdering Facility: [facility] Address: [address] [place], [place] [address] Performed By: #### 1 9123-9, 68465-1, 3083- ####[facility] [id number] [place] [address] [place] Creatinine [Mass/Vol] 1.12 mg/dL Normal 0.73-1.22 [facility] Comment on above: Order Comment: Speci men Type: BLOOD SPECIMENOrdering Facility: [facility] Address: [address] [place] [phone] Performed By: #### 1 9123-9, 53812-4, 3084-1 ####[facility] [id number] [place] [address] [place] ESTIMATED GLOMERULAR FILTRATION RATE 77 mL/min/1.73m??? Normal >=60 [facility] Comment on above: Order Comment: Aaliyah gibson Type: BLOOD SPECIMENOrdering Facility: [facility] Address: [address] [place], [place] [address] Result Comment: Laurita mated Glomerular Filtration Rate [...] actual GFR. Performed By: #### 1 9123-9, 85365-2, 3084-1 ####[facility] [id number] [place] [address] [place] Glucose [Mass/Vol] 114 mg/dL High 74-99 [facility] Comment on above: Order Comment: Aaliyah paige Type: BLOOD SPECIMENOrdering Facility: [facility] Address: [address] [place], [place] [phone] Result Comment: The [place] [employer] (ADA) provides guidance for cutoff [...] Standards of Medical Care in Diabetes 2016, [place] [employer]. Diabetes Care. 2016.39(Suppl 1). Performed By: #### 1 9123-9, 46109-5, 3084-1 ####[facility] [id number] [place] [address] [place] Potassium [Moles/Vol] 3.5 mmol/L Low 3.7-5.1 [facility] Comment on above: Order Comment: Speci men Type: BLOOD SPECIMENOrdering Facility: [facility] Address: [address] [place], [place] [phone] Performed By: #### 1 9123-9, 68707-5, 3084-1 ####[facility] [id number] [place] [address] [place] Protein [Mass/Vol] 6.8 g/dL Normal 6.3-8.0 [facility] Comment on above: Order Comment: Speci men Type: BLOOD SPECIMENOrdering Facility: [facility] Address: [address] [place], [place] [address] Performed By: #### 1 9123-9, 18475-5, 3084-1 ####[facility] [id number] [place] [address] [place] Sodium [Moles/Vol] 140 mmol/L Normal 136-144 [facility] Comment on above: Order Comment: Speci men Type: BLOOD SPECIMENOrdering Facility: [facility] Address: [address] [place] [phone] Performed By: #### 1 9123-9, 09272-1, 3084-1 ####[facility] [id number] [place] [address] [place] Urea nitrogen [Mass/Vol] 20 mg/dL Normal 9-24 [facility] Comment on above: Order Comment: Speci men Type: BLOOD SPECIMENOrdering Facility: [facility] Address: [address] [place], [place] [address] Performed By: #### 1 9123-9, 33328-5, 3084-1 ####[facility] [id number] [place] [address] [place] Albumin [Mass/Vol] 4.0 g/dL 3.9 - 4.9 g/dL [facility] ALP [Catalytic activity/Vol] 57 U/L 38 - 113 U/L [facility] ALT [Catalytic activity/Vol] 26 U/L 10 - 54 U/L [facility] Anion gap [Moles/Vol] 10 mmol/L 9 - 18 mmol/L [facility] AST [Catalytic activity/Vol] 18 U/L 14 - 40 U/L [facility] Bilirubin [Mass/Vol] 0.5 mg/dL 0.2 - 1 .3 mg/dL [facility] Calcium [Mass/Vol] 9.4 mg/dL 8.5 - 10. 2 mg/dL [facility] Chloride [Moles/Vol] 102 mmol/L 97 - 10 5 mmol/L [facility] CO2 [Moles/Vol] 28 mmol/L 22 - 30 mmol/L [facility] Creatinine [Mass/Vol] 1.12 mg/dL 0.73 - 1.22 mg/dL [facility] Estimated Glomerular Filtration Rate 77 mL/min/1.73m >=60 mL/min/1.7 3m [facility] Glucose [Mass/Vol] 114 mg/dL High 74 - 99 mg/dL [facility] Potassium [Moles/Vol] 3.5 mmol/L Low 3.7 - 5.1 mmol/L [facility] Protein [Mass/Vol] 6.8 g/dL 6.3 - 8.0 g/dL [facility] Sodium [Moles/Vol] 140 mmol/L 136 - 144 mmol/L [facility] Urea nitrogen [Mass/Vol] 20 mg/dL 9 - 24 mg/dL [facility] LD LACTATE DEHYDROon 022 LDH [Catalytic activity/Vol] 201 U/L 135 - 225 U/L [facility] LDH SerPl-cCncon 07-21-2021 LDH [Catalytic activity/Vol] 201 U/L Normal 135-225 [facility] Comment on above: Order Comment: Speci men Type: BLOOD SPECIMENOrdering Facility: [facility] Address: [address] [place] [address] Performed By: #### 2 532-0 ####[facility] [id number] [place] [address] [place] MAGNESIUM BLDon 07-21-2021 Magnesium [Mass/Vol] 2.1 mg/dL 1.7 - 2 .3 mg/dL [facility] MRI BRAIN WO/W IVCONon 07-21 MRI BRAIN WO/W IVCON Normal [facility] Magnesium SerPl-mCncon 07-21 Magnesium [Mass/Vol] 2.1 mg/dL Normal 1.7-2.3 [facility] Comment on above: Order Comment: Aaliyah gibson Type: BLOOD SPECIMENOrdering Facility: [facility] Address: [address] [place] [address] Performed By: #### 1 9123-9, 45036-6, 3084-1 ####[facility] [id number] [place] [address] [place] PHOSPHORUS INORGANICon 07-21 Phosphate [Mass/Vol] 3.9 mg/dL 2.7 - 4 .8 mg/dL [facility] PT panel Coag (PPP)on 2021 INR Coag (PPP) [Relative time] 1.0 {INR} Normal 0.9-1.3 [facility] Comment on above: Order Comment: Aaliyah gibson Type: BLOOD SPECIMENOrdering Facility: [facility] Address: [address] [place], [place] [phone] Result Comment: Constanza min K Antagonist (VKA) Therapeutic Range: INR 2 to 3 (Target INR of 2.5)Note: For patients treated with VKA drugs, such as warfarin, the [place] [employer] 2012 Guideline recommends [...] al. Chest 2012, 141:7S-47SNishnini RA, et al. [facility] 2017, 70: 252-289 Performed By: #### 3 4528-0, 37738-6 ####[facility] [id number] [place] [address] [place] PT Coag (PPP) [Time] 10.9 s Normal 9.7-13.0 [facility] Comment on above: Order Comment: Speci men Type: BLOOD SPECIMENOrdering Facility: [facility] Address: [address] [address] Performed By: #### 3 4528-0, 89795-6 ####[facility] [id number] [place] [address] [place] INR Coag (PPP) [Relative time] 1.0 {INR} 0.9 - 1.3 [facility] PT Coag (PPP) [Time] 10.9 s 9.7 - 1 3.0 sec [facility] Phosphate SerPl-mCncon 07-21 Phosphate [Mass/Vol] 3.9 mg/dL Normal 2.7-4.8 [facility] Comment on above: Order Comment: Speci men Type: BLOOD SPECIMENOrdering Facility: [facility] Address: [address] [place] [address] Performed By: #### 2 777-1 ####[facility] [id number] [place] [address] [place] T3 FREE BLDon 07-21-2021 Free T3 [Mass/Vol] 2.8 pg/mL Normal 2.3-4.1 [facility] Comment on above: Order Comment: Speci men Type: BLOOD SPECIMENOrdering Facility: [facility] Address: [address] [place] [address] Performed By: #### F T4, FREET3 ####[facility] LABIA [id number] [place] [address] [place] T4 FREE/FREE THYROXon 2021 Free T4 [Mass/Vol] 1.1 ng/dL Normal 0.9-1.7 [facility] Comment on above: Order Comment: Speci men Type: BLOOD SPECIMENOrdering Facility: [facility] Address: [address] [place] [address] Performed By: #### F T4, FREET3 ####[facility] LABIA [id number] [place] [address] [place] TSH BLDon 07-21-2021 TSH Qn 2.120 m[IU]/L 0.270 - 4.200 mIU/L [facility] TSH SerPl-aCncon 07-21-2021 TSH Qn 2.120 m[IU]/L Normal 0.270-4.20 0 [facility] Comment on above: Order Comment: Speci men Type: BLOOD SPECIMENOrdering Facility: [facility] Address: [address] [place] [address] Performed By: #### 3 016-3 ####[facility] LABIA [id number] [place] [address] [place] URIC ACID BLOODon 07-21-2021 Urate [Mass/Vol] 8.3 mg/dL High 4.0 - 8.1 mg/dL [facility] Urate SerPl-mCncon Urate [Mass/Vol] 8.3 mg/dL High 4.0-8.1 [facility] Comment on above: Order Comment: Speci men Type: BLOOD SPECIMENOrdering Facility: [facility] Address: [address] [place], [place] [address] Performed By: #### 1 9123-9, 10884-9, 3084-1 ####[facility] [id number] [place] [address] [place] aPTT PPPon 07-21-2021 aPTT Coag (PPP) [Time] 29.1 s Normal 23.0-32.4 [facility] Comment on above: Order Comment: Speci men Type: BLOOD SPECIMENOrdering Facility: [facility] Address: [address] [place] [address] Performed By: #### 3 4528-0, 09313-6 ####[facility] [id number] [address] OF [facility] CNOVSPon 07-15-2021 CNOVSP Normal [facility] MRI KIDNEY WO/W IVCONon 05-1 MRI KIDNEY WO/W IVCON Invalid Interpretation Code [facility] CNOVSPon 07-14-2021 CNOVSP Normal [facility] CNPNon 07-11-2021 CNPN Normal [facility] CNNURSEon 07-08-2021 CNNURSE Normal [facility] CNPNon 07-07-2021 CNPN Normal [facility] CNOVSPon 07-02-2021 CNOVSP Normal [facility] BRIEF OP NOTon 07-01-2021 BRIEF OP NOT Normal [facility] CT BIOPSY CHEST WALLon 07-01 CT BIOPSY CHEST WALL Normal [facility] HISTORY PHYSICALon HISTORY PHYSICAL Normal [facility] NURSING PROGon 07-01-2021 NURSING PROG Normal [facility] PT EDon 07-01-2021 PT ED Normal [facility] SURGICAL PATHOLOGYon 022 CASE REPORT Normal [facility] Comment on above: Order Comment: Speci men Type: TISSUE SPECIMENOrdering Facility: [facility] Address: [address] [place] [address] Result Comment: Surg ical Pathology Report Case: [id number] Provider: Anne-Marie Chaparro MD Collected: 07/01/2021 08:31 AMOrdering Location: [place] [address] Received: 07/01/2021 01:44 PMPathologist: LAVINIA Hatchpecimen: SOFT TISSUE MASS BIOPSY, right chest wall mass - 4 passes, 4 cores Performed By: #### S ####[facility] [place] LABCLIA [id number] [address] CLINICAL HISTORY right renal mass wit h right chest wall mass Normal [facility] Comment on above: Order Comment: Speci men Type: TISSUE SPECIMENOrdering Facility: [facility] Address: [address] [place] [address] Performed By: #### S ####[facility] [place] LABCLIA [id number] [address] DIAGNOSIS COMMENT Normal [facility] Comment on above: Order Comment: Speci men Type: TISSUE SPECIMENOrdering Facility: [facility] Address: [address] [place] [address] Result Comment: Tumo r cells are strongly and diffusely positive for PAX-8, CAM 5.2 and CA9. The overall morphology and immunoprofile support the above diagnosis.Laboratory Developed Test (LDT) Disclaimer:Performance characteristics of immunohistochemical, immunofluorescent and chromogenic in-situ hybridization tests have been determined by the performing laboratory within [facility]???s [facility] [place] ([facility], [facility], [facility] or [facility]) in a manner consistent with CLIA requirements. One or more of these tests have not been cleared or approved by the FDA. [facility] is regulated under CLIA as qualified to perform high-complexity testing. These tests are used for clinical purposes. They should not be regarded as investigational or for research. Positive and negative controls stain appropriately. Performed By: #### S ####[facility] LABCLIA [id number] [address] FINAL DIAGNOSIS Normal [facility] Comment on above: Order Comment: Speci men Type: TISSUE SPECIMENOrdering Facility: [facility] Address: [address] [place] [address] Result Comment: A. S oft tissue, right chest wall mass, core needle biopsy:- Metastatic renal cell carcinoma, clear cell type. See comment.CHRISTIANO/TERA/hi 07/04/2021 Performed By: #### S ####[facility] LABCLIA [id number] [address] [place] FINAL PERFORMING LAB Normal [facility] Comment on above: Order Comment: Speci men Type: TISSUE SPECIMENOrdering Facility: [facility] Address: [address] [place] [address] Result Comment: Diag nostic interpretation performed at [facility], [address] [place] [address] CLIA# [id number] Director: Russ Madera M.D. Performed By: #### S ####[facility] LABCLIA [id number] [address] [place] GROSS DESCRIPTION Normal [facility] Comment on above: Order Comment: Speci men Type: TISSUE SPECIMENOrdering Facility: [facility] Address: [address] [place] [address] Result Comment: A. S OFT TISSUE MASS BIOPSY.Received in formalin are multiple segments of cylindrical tissue 1.0 x 0.2 x 0.1 cm, short-red and of a friable consistency. Totally submitted in one cassette.HMM July 01, 2021 5:56 PMGross examination performed at [facility], [address] [place] [address] Performed By: #### S ####[facility] LABCLIA [id number] [place] [address] [place] NM BONE WHOLE BODYon 022 NM BONE WHOLE BODY Normal [facility] PT panel Coag (PPP)on 2021 INR Coag (PPP) [Relative time] 1.0 {INR} Normal 0.9-1.3 [facility] Comment on above: Order Comment: Aaliyah gibson Type: BLOOD SPECIMENOrdering Facility: [facility] Address: [address] [id number] Result Comment: Constanza min K Antagonist (VKA) Therapeutic Range: INR 2 to 3 (Target INR of 2.5)Note: For patients treated with VKA drugs, such as warfarin, the [place] [employer] 2012 Guideline recommends [...] al. Chest 2012, 141:7S-47SNishimura RA, et al. [facility] 2017, 70: 252-289 Performed By: #### 3 4528-0 ####[facility] [id number] [place] [address] [place] PT Coag (PPP) [Time] 10.5 s Normal 9.7-13.0 [facility] Comment on above: Order Comment: Aaliyah gibson Type: BLOOD SPECIMENOrdering Facility: [facility] Address: [address] [place] [address] Performed By: #### 3 4528-0 ####[facility] [id number] [place] [address] [place] [address] ABD/PEL W IVCONon 022 CT ABD/PEL W IVCON Normal [facility] NURSING PROGon 06-25-2021 NURSING PROG Normal [facility] CNOVon 06-23-2021 CNOV Normal [facility] CNPNon 06-23-2021 CNPN Normal [facility] CNPTOUTREACHon 06-23-2021 CNPTOUTREACH Normal [facility] URINALYSIS, REFLEX MICROSCOP ICon 06-23-2021 Bilirubin Ql (U) Negative Negative [facility] Clarity (Unsp spec) Clear [facility] Color (U) Yellow Yellow [facility] Glucose Test strip (U) [Mass/Vol] Negative Negative [facility] Hemoglobin Ql (U) Negative Negative [facility] Ketones Ql (U) Negative Negative [facility] Leukocyte esterase Test strip Ql (U) Negative Negative [facility] Nitrite Ql (U) Negative Negative [facility] pH (U) 6.5 [pH] 5.0 - 8.0 [facility] Protein (U) [Mass/Vol] Trace Abnormal Negative [facility] Specific gravity (U) [Rel density] 1.013 1.005 - 1.030 [facility] Urobilinogen Ql (U) Negative [facility] Bilirubin Ql (U) Negative Normal Negative [facility] Comment on above: Order Comment: Speci men Type: URINE SPECIMENOrdering Facility: [facility] Address: [address] [place] [address] Performed By: #### L [id number] ####[facility] Q7CLIA [id number] [address] [place] Clarity (Unsp spec) Clear Normal Clear [facility] Comment on above: Order Comment: Speci men Type: URINE SPECIMENOrdering Facility: [facility] Address: [address] [place] [address] Performed By: #### L [id number] ####[facility] Q7CLIA [id number] [address] [place] Color (U) Yellow Normal Yellow [facility] Comment on above: Order Comment: Speci men Type: URINE SPECIMENOrdering Facility: [facility] Address: [address] [place] [address] Performed By: #### L [id number] ####[facility] Q7CLIA [id number] [address] OF [place] Glucose Test strip (U) [Mass/Vol] Negative Normal Negative [facility] Comment on above: Order Comment: Speci men Type: URINE SPECIMENOrdering Facility: [facility] Address: [address] [place], [place] [address] Performed By: #### L [id number] ####[facility] Q7CLIA [id number] [address] [place] Hemoglobin Ql (U) Negative Normal Negative [facility] Comment on above: Order Comment: Speci men Type: URINE SPECIMENOrdering Facility: [facility] Address: [address] [place], [place] [address] Performed By: #### L [id number] ####[facility] Q7CLIA [id number] [address] [place] Ketones Ql (U) Negative Normal Negative [facility] Comment on above: Order Comment: Speci men Type: URINE SPECIMENOrdering Facility: [facility] Address: [address] [place] [address] Performed By: #### L [id number] ####[facility] Q7CLIA [id number] [address] Leukocyte esterase Test strip Ql (U) Negative Normal Negative [facility] Comment on above: Order Comment: Speci men Type: URINE SPECIMENOrdering Facility: [facility] Address: [address] [place] [address] Performed By: #### L [id number] ####[facility] Q7CLIA [id number] [place] [address] [place] Nitrite Ql (U) Negative Normal Negative [facility] Comment on above: Order Comment: Speci men Type: URINE SPECIMENOrdering Facility: [facility] Address: [address] [place], [place] [phone] Performed By: #### L [id number] ####[facility] Q7CLIA [id number] [address] [place] pH (U) 6.5 [pH] Normal 5.0-8.0 [facility] Comment on above: Order Comment: Speci men Type: URINE SPECIMENOrdering Facility: [facility] Address: [address] [place] [address] Performed By: #### L [id number] ####[facility] Q7CLIA [id number] [place] [address] [place] Protein (U) [Mass/Vol] Trace Abnormal Negative [facility] Comment on above: Order Comment: Speci men Type: URINE SPECIMENOrdering Facility: [facility] Address: [address] [place] [address] Performed By: #### L [id number] ####[facility] Q7CLIA [id number] [address] Specific gravity (U) [Rel density] 1.013 Normal 1.005-1.03 0 [facility] Comment on above: Order Comment: Speci men Type: URINE SPECIMENOrdering Facility: [facility] Address: [address] [place] [address] Performed By: #### L [id number] ####[facility] Q7CLIA [id number] [address] Urobilinogen Ql (U) Negative Normal Negative [facility] Comment on above: Order Comment: Speci men Type: URINE SPECIMENOrdering Facility: [facility] Address: [address] [place] [address] Performed By: #### L [id number] ####[facility] Q7CLIA [id number] [place] [address] [place] CBC W Auto Differential pane l (Bld)on 06-20-2021 Basophils (Bld) [#/Vol] 0.03 10*3/uL Normal <0.11 [facility] Comment on above: Order Comment: Speci men Type: BLOOD SPECIMENOrdering Facility: [facility] Address: [address] [place], [place] [address] Performed By: #### 5 7021-8 ####[facility] LABCLIA [id number] [facility] [place] [address] [place] Basophils/100 WBC (Bld) 0.4 % Normal [facility] Comment on above: Order Comment: Speci men Type: BLOOD SPECIMENOrdering Facility: [facility] Address: [address] [place], [place] [address] Performed By: #### 5 7021-8 ####[facility] LABCLIA [id number] [place] [address] [place] Differential cell count method Nom (Bld) Auto Normal [facility] Comment on above: Order Comment: Speci men Type: BLOOD SPECIMENOrdering Facility: [facility] Address: [address] [place], [place] [address] Performed By: #### 5 7021-8 ####[facility] LABCLIA [id number] [place] [address] [place] Eosinophils (Bld) [#/Vol] 10*3/uL Normal <0.46 [facility] Comment on above: Order Comment: Speci men Type: BLOOD SPECIMENOrdering Facility: [facility] Address: [address] [place], [place] [address] Performed By: #### 5 7021-8 ####[facility] LABCLIA [id number] [place] [address] [place] Eosinophils/100 WBC (Bld) 0.3 % Normal [facility] Comment on above: Order Comment: Speci men Type: BLOOD SPECIMENOrdering Facility: [facility] Address: [address] [place], [place] [address] Performed By: #### 5 7021-8 ####[facility] LABIA [id number] [place] [address] [place] Erythrocyte distribution width (RBC) [Ratio] 14.8 % Normal 11.5-15.0 [facility] Comment on above: Order Comment: Speci men Type: BLOOD SPECIMENOrdering Facility: [facility] Address: [address] [place], [place] [address] Performed By: #### 5 7021-8 ####[facility] LABIA [id number] [place] [address] [place] Hematocrit (Bld) [Volume fraction] 48.7 % Normal 39.0-51.0 [facility] Comment on above: Order Comment: Speci men Type: BLOOD SPECIMENOrdering Facility: [facility] Address: [address] [place], [place] [address] Performed By: #### 5 7021-8 ####[facility] [id number] [place] [address] [place] Hemoglobin (Bld) [Mass/Vol] 15.6 g/dL Normal 13.0-17.0 [facility] Comment on above: Order Comment: Speci men Type: BLOOD SPECIMENOrdering Facility: [facility] Address: [address] [place], [place] [address] Performed By: #### 5 7021-8 ####[facility] LABIA [id number] [address] [place] IMMATURE GRAN % 0.3 % Normal [facility] Comment on above: Order Comment: Speci men Type: BLOOD SPECIMENOrdering Facility: [facility] Address: [address] [place], [place] [address] Performed By: #### 5 7021-8 ####[facility] LABIA [id number] [place] [address] [place] IMMATURE GRAN ABS <0.03 Normal <0.10 [facility] Comment on above: Order Comment: Speci men Type: BLOOD SPECIMENOrdering Facility: [facility] Address: [address] [place] [address] Performed By: #### 5 7021-8 ####[facility] LABCLIA [id number] [place] [address] [place] Lymphocytes (Bld) [#/Vol] 1.78 10*3/uL Normal 1.00-4.00 [facility] Comment on above: Order Comment: Speci men Type: BLOOD SPECIMENOrdering Facility: [facility] Address: [address] [place] [address] Performed By: #### 5 7021-8 ####[facility] LABCLIA [id number] [address] STATES OF [facility] Lymphocytes/100 WBC (Bld) 26.6 % Normal [facility] Comment on above: Order Comment: Speci men Type: BLOOD SPECIMENOrdering Facility: [facility] Address: [address] [place] [address] Performed By: #### 5 7021-8 ####[facility] LABCLIA [id number] [address] [place] MCH (RBC) [Entitic mass] 29.4 pg Normal 26.0-34.0 [facility] Comment on above: Order Comment: Speci men Type: BLOOD SPECIMENOrdering Facility: [facility] Address: [address] [place], [place] [address] Performed By: #### 5 7021-8 ####[facility] LABCLIA [id number] [place] [address] [place] MCHC (RBC) [Mass/Vol] 32.0 g/dL Normal 30.5-36.0 [facility] Comment on above: Order Comment: Speci men Type: BLOOD SPECIMENOrdering Facility: [facility] Address: [address] [place], [place] [address] Performed By: #### 5 7021-8 ####[facility] LABCLIA [id number] [address] MCV (RBC) [Entitic vol] 91.9 fL Normal 80.0-100.0 C [facility] Comment on above: Order Comment: Speci men Type: BLOOD SPECIMENOrdering Facility: [facility] Address: [address] [place], [place] [address] Performed By: #### 5 7021-8 ####[facility] LABIA [id number] [place] [address] [place] Monocytes (Bld) [#/Vol] 0.51 10*3/uL Normal <0.87 [facility] Comment on above: Order Comment: Speci men Type: BLOOD SPECIMENOrdering Facility: [facility] Address: [address] [place] [address] Performed By: #### 5 7021-8 ####[facility] LABCLIA [id number] [address] [place] Monocytes/100 WBC (Bld) 7.6 % Normal C [facility] Comment on above: Order Comment: Speci men Type: BLOOD SPECIMENOrdering Facility: [facility] Address: [address] [place], [place] [address] Performed By: #### 5 7021-8 ####[facility] LABCLIA [id number] [place] [address] [place] Neutrophils (Bld) [#/Vol] 4.34 10*3/uL Normal 1.45-7.50 [facility] Comment on above: Order Comment: Speci men Type: BLOOD SPECIMENOrdering Facility: [facility] Address: [address] [place], [place] [address] Performed By: #### 5 7021-8 ####[facility] LABCLIA [id number] [place] [address] [place] Neutrophils/100 WBC (Bld) 64.8 % Normal [facility] Comment on above: Order Comment: Speci men Type: BLOOD SPECIMENOrdering Facility: [facility] Address: [address] [place], [place] [address] Performed By: #### 5 7021-8 ####[facility] LABCLIA [id number] [place] [address] [place] Nucleated RBC (Bld) [#/Vol] 10*3/uL Normal <0.01 [facility] Comment on above: Order Comment: Speci men Type: BLOOD SPECIMENOrdering Facility: [facility] Address: [address] [place], [place] [address] Performed By: #### 5 7021-8 ####[facility] LABIA [id number] [place] [address] [place] Nucleated RBC/100 WBC (Bld) [Ratio] 0.0 /100 WBC Normal [facility] Comment on above: Order Comment: Speci men Type: BLOOD SPECIMENOrdering Facility: [facility] Address: [address] [place], [place] [address] Performed By: #### 5 7021-8 ####[facility] LABIA [id number] [place] [address] [place] Platelet mean volume (Bld) [Entitic vol] 11.0 fL Normal 9.0-12.7 [facility] Comment on above: Order Comment: Speci men Type: BLOOD SPECIMENOrdering Facility: [facility] Address: [address] [place], [place] [address] Performed By: #### 5 7021-8 ####[facility] LABCLIA [id number] [place] [address] [place] Platelets (Bld) [#/Vol] 268 10*3/uL Normal 150-400 [facility] Comment on above: Order Comment: Speci men Type: BLOOD SPECIMENOrdering Facility: [facility] Address: [address] [place] [address] Performed By: #### 5 7021-8 ####[facility] LABCLIA [id number] [place] [address] [place] RBC (Bld) [#/Vol] 5.30 10*6/uL Normal 4.20-6.00 [facility] Comment on above: Order Comment: Speci men Type: BLOOD SPECIMENOrdering Facility: [facility] Address: [address] [place] [address] Performed By: #### 5 7021-8 ####[facility] LABCLIA [id number] [place] [address] [place] WBC (Bld) [#/Vol] 6.70 10*3/uL Normal 3.70-11.00 [facility] Comment on above: Order Comment: Speci men Type: BLOOD SPECIMENOrdering Facility: [facility] Address: [address] [place], [place] [address] Performed By: #### 5 7021-8 ####[facility] LABCLIA [id number] [place] [address] [place] CNOVon 06-20-2021 CNOV Normal [facility] Comprehensive metabolic 2000 panelon 06-20-2021 Albumin [Mass/Vol] 4.2 g/dL Normal 3.9-4.9 [facility] Comment on above: Order Comment: Speci men Type: BLOOD SPECIMENOrdering Facility: [facility] Address: [address] [place] [address] Performed By: #### 2 4323-8 ####[facility] LABCLIA [id number] [place] [address] [place] ALP [Catalytic activity/Vol] 52 U/L Normal 38-113 [facility] Comment on above: Order Comment: Speci men Type: BLOOD SPECIMENOrdering Facility: [facility] Address: [address] [place], [place] [address] Performed By: #### 2 4323-8 ####[facility] LABCLIA [id number] [address] [place] ALT [Catalytic activity/Vol] 17 U/L Normal 10-54 [facility] Comment on above: Order Comment: Speci men Type: BLOOD SPECIMENOrdering Facility: [facility] Address: [address] [place], [place] [address] Performed By: #### 2 4323-8 ####[facility] LABCLIA [id number] [place] [address] [place] Anion gap [Moles/Vol] 12 mmol/L Normal 9-18 [facility] Comment on above: Order Comment: Speci men Type: BLOOD SPECIMENOrdering Facility: [facility] Address: [address] [place], [place] [address] Performed By: #### 2 4323-8 ####[facility] LABCLIA [id number] [address] STATES OF [facility] AST [Catalytic activity/Vol] 18 U/L Normal 14-40 [facility] Comment on above: Order Comment: Speci men Type: BLOOD SPECIMENOrdering Facility: [facility] Address: [address] [place] [address] Performed By: #### 2 4323-8 ####[facility] LABCLIA [id number] [place] [address] [place] Bilirubin [Mass/Vol] 0.5 mg/dL Normal 0.2-1.3 [facility] Comment on above: Order Comment: Speci men Type: BLOOD SPECIMENOrdering Facility: [facility] Address: [address] [place] [address] Performed By: #### 2 4323-8 ####[facility] LABCLIA [id number] [address] [address] [place] Calcium [Mass/Vol] 9.8 mg/dL Normal 8.5-10.2 [facility] Comment on above: Order Comment: Speci men Type: BLOOD SPECIMENOrdering Facility: [facility] Address: [address] [place], [place] [address] Performed By: #### 2 4323-8 ####[facility] LABCLIA [id number] [place] [address] [place] Chloride [Moles/Vol] 101 mmol/L Normal 97-105 [facility] Comment on above: Order Comment: Speci men Type: BLOOD SPECIMENOrdering Facility: [facility] Address: [address] [place], [place] [address] Performed By: #### 2 4323-8 ####[facility] LABCLIA [id number] [place] [address] [place] CO2 [Moles/Vol] 28 mmol/L Normal 22-30 [facility] Comment on above: Order Comment: Speci men Type: BLOOD SPECIMENOrdering Facility: [facility] Address: [address] [place] [address] Performed By: #### 2 4323-8 ####[facility] LABCLIA [id number] [place] [address] [place] Creatinine [Mass/Vol] 1.12 mg/dL Normal 0.73-1.22 [facility] Comment on above: Order Comment: Speci men Type: BLOOD SPECIMENOrdering Facility: [facility] Address: [address] [place] [address] Performed By: #### 2 4323-8 ####[facility] LABCLIA [id number] [place] [id number] [place] ESTIMATED GLOMERULAR FILTRATION RATE 77 mL/min/1.73m??? Normal >=60 [facility] Comment on above: Order Comment: Aaliyah gibson Type: BLOOD SPECIMENOrdering Facility: [facility] Address: [address] [id number] Result Comment: Laurita mated Glomerular Filtration Rate [...] Performed By: #### 2 4323-8 ####[facility] LABIA [id number] [place] [address] [place] Glucose [Mass/Vol] 87 mg/dL Normal 74-99 [facility] Comment on above: Order Comment: Aaliyah gibson Type: BLOOD SPECIMENOrdering Facility: [facility] Address: [address] [place] [address] Result Comment: The [place] [employer] (ADA) provides guidance for cutoff [...] Standards of Medical Care in Diabetes 2016, [place] [employer]. Diabetes Care. 2016.39(Suppl 1). Performed By: #### 2 4323-8 ####[facility] [id number] [place] [address] [place] Potassium [Moles/Vol] 3.8 mmol/L Normal 3.7-5.1 [facility] Comment on above: Order Comment: Aaliyah gibson Type: BLOOD SPECIMENOrdering Facility: [facility] Address: [address] [place] [address] Performed By: #### 2 4323-8 ####[facility] LABCLIA [id number] [place] [address] [place] Protein [Mass/Vol] 7.3 g/dL Normal 6.3-8.0 [facility] [place] Comment on above: Order Comment: Speci men Type: BLOOD SPECIMENOrdering Facility: [facility] Address: [address] [place] [address] Performed By: #### 2 4323-8 ####[facility] LABIA [id number] [place] [address] [place] Sodium [Moles/Vol] 141 mmol/L Normal 136-144 [facility] Comment on above: Order Comment: Speci men Type: BLOOD SPECIMENOrdering Facility: [facility] Address: [address] [place] [address] Performed By: #### 2 4323-8 ####[facility] LABIA [id number] [place] [address] [place] Urea nitrogen [Mass/Vol] 12 mg/dL Normal 9-24 [facility] Comment on above: Order Comment: Speci men Type: BLOOD SPECIMENOrdering Facility: [facility] Address: [address] [place] [address] Performed By: #### 2 4323-8 ####[facility] LABIA [id number] [place] [address] [place] ALC ETHANOLon 06-19-2021 ALC ETHANOL < 3.0 Normal <10.0 [facility] Comment on above: Order Comment: CONSE RVATION Result Comment: UNCO NFIRMED Toxicology results. For MEDICAL purposes only. Performed By: #### L 500.95944, L500.21948, L500.80326 ####Test performed at: [place] [address] ALT SerPl w P-5'-P-cCncOrder ed By: Siri Harris on 06-19-2021 ALT With P-5'-P [Catalytic activity/Vol] 23 U/L 13-61 [facility] AST SerPl w P-5'-P-cCncOrder ed By: Siri Harris on 06-19-2021 AST With P-5'-P [Catalytic activity/Vol] 16 U/L 15-37 [facility] Albumin SerPl-mCncOrdered By : Siri Harris on 06-19-2021 Albumin [Mass/Vol] 3.4 g/dL 3.4-5.0 [facility] BUN SerPl-mCncOrdered By: Natty Harris on 06-19-2021 Urea nitrogen [Mass/Vol] 16 mg/dL 7-18 [facility] Basophils Auto (Bld) [#/Vol] Ordered By: Siri Harris on 06-19-2021 Basophils (Bld) [#/Vol] 0.0 10*3/uL 0.0-0.2 [facility] Basophils/100 WBC Auto (Bld) Ordered By: Siri Harris on 06-19-2021 Basophils/100 WBC (Bld) 0.5 % [facility] CBC W/DIFFon 06-19-2021 BASO ABS 0.0 K/uL Normal 0.0-0.2 [facility] Comment on above: Order Comment: CONSE RVATION Performed By: #### L 200.38931 #### Test performed at: [address] [address] Basophils/100 WBC (Bld) 0.5 % Normal [facility] Comment on above: Order Comment: CONSE RVATION Performed By: #### L 200.78861 #### Test performed at: [place] [address] [place] [address] EOS ABS 0.1 K/uL Normal 0.0-0.5 [facility] Comment on above: Order Comment: CONSE RVATION Performed By: #### L 200.59720 #### Test performed at: [address] [address] Eosinophils/100 WBC (Bld) 0.6 % Normal [facility] Comment on above: Order Comment: CONSE RVATION Performed By: #### L 200.61064 #### Test performed at: [address] [address] Erythrocyte distribution width (RBC) [Ratio] 14.8 % High 11.5-14.5 [facility] Comment on above: Order Comment: CONSE RVATION Performed By: #### L 200.72060 #### Test performed at: [address] [address] Hematocrit (Bld) [Volume fraction] 43.8 % Normal 39.0-55.0 [facility] Comment on above: Order Comment: CONSE RVATION Performed By: #### L 200.38243 #### Test performed at: [address] [address] Hemoglobin (Bld) [Mass/Vol] 14.9 g/dL Normal 14.0-16.5 [facility] Comment on above: Order Comment: CONSE RVATION Performed By: #### L 200.52313 #### Test performed at: [place] [id number] IG % 0.4 % Normal [facility] Comment on above: Order Comment: CONSE RVATION Performed By: #### L 200.40434 #### Test performed at: [place] [id number] IG ABS 0.03 K/uL Normal 0-0.05 [facility] Comment on above: Order Comment: CONSE RVATION Performed By: #### L 200.60813 #### Test performed at: [place] [id number] Lymphocytes (Bld) [#/Vol] 2.0 10*3/uL Normal 1.2-3.5 [facility] Comment on above: Order Comment: CONSE RVATION Performed By: #### L 200.99355 #### Test performed at: [address] [address] Lymphocytes/100 WBC (Bld) 25.2 % Normal [facility] Comment on above: Order Comment: CONSE RVATION Performed By: #### L 200.03026 #### Test performed at: [address] [address] MCH (RBC) [Entitic mass] 30.2 pg Normal 25.4-34.6 [facility] Comment on above: Order Comment: CONSE RVATION Performed By: #### L 200.61567 #### Test performed at: [address] [address] MCHC (RBC) [Mass/Vol] 34.0 g/dL Normal 31.5-36.5 [facility] Comment on above: Order Comment: CONSE RVATION Performed By: #### L 200.57203 #### Test performed at: [address] [address] MCV (RBC) [Entitic vol] 88.7 fL Normal 80.0-100.0 [facility] Comment on above: Order Comment: CONSE RVATION Performed By: #### L 200.22344 #### Test performed at: [address] [address] MONO ABS 0.7 K/uL Normal 0.0-1.0 [facility] Comment on above: Order Comment: CONSE RVATION Performed By: #### L 200.52153 #### Test performed at: [address] [address] Monocytes/100 WBC (Bld) 9.4 % Normal [facility] Comment on above: Order Comment: CONSE RVATION Performed By: #### L 200.42633 #### Test performed at: [address] [address] NEUTROPHIL ABS 4.9 K/uL Normal 1.4-6.6 [facility] Comment on above: Order Comment: CONSE RVATION Performed By: #### L 200.93881 #### Test performed at: [address] [address] Neutrophils/100 WBC (Bld) 63.9 % Normal [facility] Comment on above: Order Comment: CONSE RVATION Performed By: #### L 200.17811 #### Test performed at: [address] [address] NRBC # 0.000 K/uL Normal 0-0.012 [facility] Comment on above: Order Comment: CONSE RVATION Performed By: #### L 200.03664 #### Test performed at: [address] [address] NRBC % 0.0 /100 WBC Normal 0-0.2 [facility] Comment on above: Order Comment: CONSE RVATION Performed By: #### L 200.27172 #### Test performed at: [address] [address] Platelet mean volume (Bld) [Entitic vol] 10.1 fL Normal 8.7-12.4 [facility] Comment on above: Order Comment: CONSE RVATION Performed By: #### L 200.10383 #### Test performed at: [address] [address] Platelets (Bld) [#/Vol] 245 10*3/uL Normal 140-440 [facility] Comment on above: Order Comment: CONSE RVATION Performed By: #### L 200.01614 #### Test performed at: [address] [address] RBC (Bld) [#/Vol] 4.94 10*6/uL Normal 3.5-5.5 [facility] Comment on above: Order Comment: CONSE RVATION Performed By: #### L 200.68305 #### Test performed at: [address] [address] WBC (Bld) [#/Vol] 7.7 10*3/uL Normal 3.9-11.0 [facility] Comment on above: Order Comment: CONSE RVATION Performed By: #### L 200.46871 #### Test performed at: [address] [address] CO2 SerPl-sCncOrdered By: Natty Harris on 06-19-2021 CO2 [Moles/Vol] 29 mmol/L 21-32 [facility] COMP META PANELon 06-19-2021 Albumin [Mass/Vol] 3.4 g/dL Normal 3.4-5.0 [facility] Comment on above: Order Comment: CONSE RVATION Performed By: #### L 500.68200, L500.74777, L500.36408 #### Test performed at: [address] [address] ALK PHOS TOTAL 58 U/L Normal 45-117 [facility] Comment on above: Order Comment: CONSE RVATION Performed By: #### L 500.05637, L500.15378, L500.98100 #### Test performed at: [address] [address] ALT [Catalytic activity/Vol] 23 U/L Normal 13-61 [facility] Comment on above: Order Comment: CONSE RVATION Performed By: #### L 500.52672, L500.74506, L500.13386 #### Test performed at: [place] [address] [address] AST [Catalytic activity/Vol] 16 U/L Normal 15-37 [facility] Comment on above: Order Comment: CONSE RVATION Performed By: #### L 500.72174, L500.48278, L500.35869 #### Test performed at: [address] [address] BILI TOTAL 0.4 mg/dL Normal 0.2-1.0 [facility] Comment on above: Order Comment: CONSE RVATION Performed By: #### L 500.72595, L500.10744, L500.25626 #### Test performed at: [address] [address] Calcium [Mass/Vol] 9.0 mg/dL Normal 8.5-10.1 [facility] Comment on above: Order Comment: CONSE RVATION Performed By: #### L 500.93275, L500.31832, L500.26070 #### Test performed at: [address] [address] Chloride [Moles/Vol] 107 mmol/L Normal 98-107 [facility] Comment on above: Order Comment: CONSE RVATION Performed By: #### L 500.69022, L500.02244, L500.92493 #### Test performed at: [address] [address] CO2 [Moles/Vol] 29 mmol/L Normal 21-32 [facility] Comment on above: Order Comment: CONSE RVATION Performed By: #### L 500.08570, L500.38880, L500.18279 #### Test performed at: [address] [address] Creatinine [Mass/Vol] 1.290 mg/dL Normal 0.700- 1.30 0 [facility] Comment on above: Order Comment: CONSE RVATION Performed By: #### L 500.55245, L500.56903, L500.51074 #### Test performed at: [address] [address] Glucose [Mass/Vol] 91 mg/dL Normal 70-99 [facility] Comment on above: Order Comment: CONSE RVATION Result Comment: Fast ing GLUCOSE reference range has been updated per (ADA) [place] [employer]'s recommendation. 05/31/2018 Performed By: #### L 500.52935, L500.91511, L500.22484 #### Test performed at: [address] [address] Potassium [Moles/Vol] 3.5 mmol/L Normal 3.5-5.1 [facility] Comment on above: Order Comment: CONSE RVATION Performed By: #### L 500.17161, L500.77904, L500.74967 #### Test performed at: [address] [address] Protein [Mass/Vol] 6.9 g/dL Normal 6.4-8.2 [facility] Comment on above: Order Comment: CONSE RVATION Performed By: #### L 500.63249, L500.12027, L500.46014 #### Test performed at: [address] [address] Sodium [Moles/Vol] 140 mmol/L Normal 136-145 [facility] Comment on above: Order Comment: CONSE RVATION Performed By: #### L 500.91153, L500.43936, L500.30712 #### Test performed at: [address] [address] Urea nitrogen [Mass/Vol] 16 mg/dL Normal 7-18 [facility] Comment on above: Order Comment: CONSE RVATION Performed By: #### L 500.95685, L500.16144, L500.05005 #### Test performed at: [facility] [address] [address] [address] ANG THORAX WCON PE PROTOC OLon 06-19-2021 CT ANG THORAX WCON PE PROTOCOL STUDY: CT ANG THORAX WCON PE PROTOCOL; 06/19/2021 6:00 pm INDICATION: high dimer. COMPARISON: Chest x-ray 06/19/2021. ACCESSION NUMBER(S): [id number] ORDERING CLINICIAN: Siri Harris TECHNIQUE: Helical data [...] at 6:47 pm with readback verification. Normal [facility] CT HEAD/BRAIN WO CONon 06-19 CT HEAD/BRAIN WO CON STUDY: CT HEAD/BRAIN WO CON; 06/19/2021 6:00 pm INDICATION: htn. COMPARISON: CT scan of the head 09/09/2016 ACCESSION NUMBER(S): [id number] ORDERING CLINICIAN: Siri Harris TECHNIQUE: Axial noncontrast [...] Stable chronic changes as described above. Normal [facility] Calcium SerPl-mCncOrdered By : Siri Harris on 06-19-2021 Calcium [Mass/Vol] 9.0 mg/dL 8.5-10.1 [facility] D dimer FEU PPP-mCncOrdered By: Siri Harris on 06-19-2021 Fibrin D-dimer FEU (PPP) [Mass/Vol] 1020.82 <500 [facility] Comment on above: The CUT-OFF value fo r the evaluation of VenousThromboEmbolism (VTE) is <500 ng/mL FEU. D-DIMER QUANTon 06-19-2021 D-DIMER QUANT 1020.82 ng/mLFEU High <500 [facility] Comment on above: Order Comment: CONSE RVATION Result Comment: The CUT-OFF value for the evaluation of Venous ThromboEmbolism (VTE) is <500 ng/mL FEU. Performed By: #### L 300.45159 #### Test performed at: [address] [place] [address], [place] [address] ED Provider Reporton 022 ED Provider Report [facility] Pt Name: YEFRI YANEZ MR#: [id number] [address] [place], [place] [id number] ACCT: [id number] : 63 EMERGENCY PROVIDER REPORT ADM Date: 06/19/21 ER Physician: Siri Harris MD HPI-Syncope Time Seen by MD 1550 Source of Information PATIENT Triage Complaint [...] History Past Medical History Reports HTN, Denies AK, Denies COPD, Denies Asthma Past Med Hx [...] Medical Decision Making Diagnostics Labs Laboratory Tests Verdana 4d 06/19 06/19 06/19 1629 1629 1617 [...] 23 Mallory (more content not included)... Normal [facility] EKGon 06-19-2021 Electrocardiogram Acquired on 06/20/19 [...] PM Referred By: Confirmed By:FILEMON LEYVA MD [id number] 2021 -------- [facility] PT NAME: YEFRI YANEZ MR#: [id number] [address] [place] [address] ACCT: [id number] : 63 EKG REPORT Normal [facility] Eosinophils Auto (Bld) [#/Vo l]Ordered By: Siri Harris on 06-19-2021 Eosinophils (Bld) [#/Vol] 0.1 10*3/uL 0.0-0.5 [facility] Eosinophils/100 WBC Auto (Bl d)Ordered By: Siri Harris on 06-19-2021 Eosinophils/100 WBC (Bld) 0.6 % [facility] Erythrocyte distribution wid th Auto (RBC) [Ratio]Ordered By: Siri Harris on 06-19-2021 Erythrocyte distribution width (RBC) [Ratio] 14.8 % 11.5-14.5 [facility] GFR ESTIMATEon 06-19-2021 IF AMER > 60 Normal > 60 [facility] Comment on above: Order Comment: [...] for clinical interpretation. Performed By: #### L 500.14185, L500.51587, L500.01175 ####Test performed at: [place] [address] IF non-AFR AMER 57 Low > 60 [facility] Comment on above: Order Comment: CONSE RVATION Performed By: #### L 500.62918, L500.75241, L500.31445 ####Test performed at: [place] [address] GFR/BSA.pred SerPlBld-ArVRat Ordered By: Siri Harris on 06-19-2021 GFR/1.73 sq M.predicted (S/P/Bld) [Vol rate/Area] 57 mL/min > 60 [facility] GFR/1.73 sq M.predicted (S/P/Bld) [Vol rate/Area] mL/min > 60 [facility] Comment on above: eGFR (Estimated GFR) Units of measure:mL/min/1.73 meters sq. *CALCULATION REVISED 12/25/2014;IDMS-traceable MDRD equationeGFR is derived from the reexpressed MDRD Study equationusing the following parameters: serum creatinine, age,gender and race. An eGFR<60 mL/min/1.73m2 for >3 monthsis consistent with chronic kidney disease. Refer to KDOQIguidelines for clinical interpretation. GLUCOSE METERon 06-19-2021 Glucose [Mass/Vol] 91 mg/dL Normal 70-99 [facility] Comment on above: Order Comment: CONSE RVATION Result Comment: Fast ing GLUCOSE reference range has been updated per (ADA) [place] [employer]'s recommendation. 05/31/2018 Performed By: #### L 500.36540 #### Test performed at: [address] [address] Glucose (BldC) [Mass/Vol]Ord ered By: Siri Harris on 06-19-2021 Glucose [Mass/Vol] 91 mg/dL 70-99 [facility] Comment on above: Fasting GLUCOSE refe rence range has been updated per (ADA)[place] Diabetes Association's recommendation. 05/31/2018 Hematocrit Auto (Bld) [Volum e fraction]Ordered By: Siri Harris on 06-19-2021 Hematocrit (Bld) [Volume fraction] 43.8 % 39.0-55.0 [facility] Hgb Bld-mCncOrdered By: Siri Harris on 06-19-2021 Hemoglobin (Bld) [Mass/Vol] 14.9 g/dL 14.0-16.5 [facility] Immature granulocytes Auto ( Bld) [#/Vol]Ordered By: Siri Harris on 06-19-2021 Immature granulocytes (Bld) [#/Vol] 0.03 10*3/uL 0-0.05 [facility] Immature granulocytes/100 WB C Auto (Bld)Ordered By: Siri Harris on 06-19-2021 Immature granulocytes/100 WBC (Bld) 0.4 % [facility] Laboratory - Chemistry and C hemistry - challengeOrdered By: Siri Harris on 06-19-2021 ALP [Catalytic activity/Vol] 58 U/L 45-117 [facility] Bilirubin [Mass/Vol] 0.4 mg/dL 0.2-1.0 [facility] Chloride [Moles/Vol] 107 mmol/L 98-107 [facility] Creatinine [Mass/Vol] 1.290 mg/dL 0.700- 1.30 0 [facility] Glucose [Mass/Vol] 91 mg/dL 70-99 [facility] Comment on above: Fasting GLUCOSE refe rence range has been updated per (ADA)[place] Diabetes Association's recommendation. 05/31/2018 Potassium [Moles/Vol] 3.5 mmol/L 3.5-5.1 [facility] Sodium [Moles/Vol] 140 mmol/L 136-145 [facility] Lymphocytes Auto (Bld) [#/Vo l]Ordered By: Siri Harris on 06-19-2021 Lymphocytes (Bld) [#/Vol] 2.0 10*3/uL 1.2-3.5 [facility] Lymphocytes/100 WBC Auto (Bl d)Ordered By: Siri Harris on 06-19-2021 Lymphocytes/100 WBC (Bld) 25.2 % [facility] MCH Auto (RBC) [Entitic mass ]Ordered By: Siri Harris on 06-19-2021 MCH (RBC) [Entitic mass] 30.2 pg 25.4-34.6 [facility] MCHC Auto (RBC) [Mass/Vol]Or dered By: Siri Harris on 06-19-2021 MCHC (RBC) [Mass/Vol] 34.0 g/dL 31.5-36.5 [facility] MCV Auto (RBC) [Entitic vol] Ordered By: Siri Harris on 06-19-2021 MCV (RBC) [Entitic vol] 88.7 fL 80.0-100.0 [facility] Monocytes Auto (Bld) [#/Vol] Ordered By: Siri Harris on 06-19-2021 Monocytes (Bld) [#/Vol] 0.7 10*3/uL 0.0-1.0 [facility] Monocytes/100 WBC Auto (Bld) Ordered By: Siri Harris on 06-19-2021 Monocytes/100 WBC (Bld) 9.4 % [facility] Neutrophils Auto (Bld) [#/Vo l]Ordered By: Siri Harris on 06-19-2021 Neutrophils (Bld) [#/Vol] 4.9 10*3/uL 1.4-6.6 [facility] Neutrophils/100 WBC Auto (Bl d)Ordered By: Siri Harris on 06-19-2021 Neutrophils/100 WBC (Bld) 63.9 % [facility] No Panel InformationOrdered By: Siri Harris on 06-19-2021 Serum Alcohol < 3.0 <10.0 [facility] Comment on above: UNCONFIRMED Toxicolo gy results. For MEDICAL purposes only. Nucleated RBC Auto (Bld) [#/ Vol]Ordered By: Siri Harris on 06-19-2021 Nucleated RBC (Bld) [#/Vol] 0.000 10*3/uL 0-0.012 [facility] Nucleated RBC/100 WBC Auto ( Bld) [Ratio]Ordered By: Siri Harris on 06-19-2021 Nucleated RBC/100 WBC (Bld) [Ratio] 0.0 % 0-0.2 [facility] PORTABLE CHESTon 06-19-2021 PORTABLE CHEST STUDY: PORTABLE CHEST; 06/19/2021 5:15 pm INDICATION: sob. COMPARISON: None. ACCESSION NUMBER(S): [id number] ORDERING CLINICIAN: Siri Harris FINDINGS: There is cardiomegaly. There is a large mass in the right lateral thorax. No significant pleural effusion. No pneumothorax. IMPRESSION: Large mass in the right lateral thorax; CT chest is recommended for further evaluation. Normal [facility] Platelet mean volume Auto (B ld) [Entitic vol]Ordered By: Siri Harris on 06-19-2021 Platelet mean volume (Bld) [Entitic vol] 10.1 fL 8.7-12.4 [facility] Platelets Auto (Bld) [#/Vol] Ordered By: Siri Harris on 06-19-2021 Platelets (Bld) [#/Vol] 245 10*3/uL 140-440 [facility] Prot SerPl-mCncOrdered By: Tangela Harris on 06-19-2021 Protein [Mass/Vol] 6.9 g/dL 6.4-8.2 [facility] RBC Auto (Bld) [#/Vol]Ordere d By: Siri Harris on 06-19-2021 RBC (Bld) [#/Vol] 4.94 10*6/uL 3.5-5.5 [facility] TROPONIN QUANTon 06-19-2021 TROP HIGH SENS 30.2 ng/L Normal [facility] Comment on above: Order Comment: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 index (BMI) [Ratio] 38.6 kg/m2 Dr. Jose Ramon Turner Work Phone: [facility] 05-18-2022 14:59-0400 Body weight 125.[address] Jose Ramon Turner Work Phone: [facility] 04-16-2022 13:54-0500 Body temperature 97.7 [degF] Dr. Jose Ramon Turner Work Phone: [facility] 04-16-2022 13:54-0500 Diastolic blood pressure 88 mm[Hg] Dr. Jose Ramon Turner Work Phone: [facility] 04-16-2022 13:54-0500 Heart rate 98 /min Dr. Jose Ramon Turner Work Phone: [facility] 04-16-2022 13:54-0500 Respiratory rate 18 /min Dr. Jose Ramon Turner Work Phone: [facility] 04-16-2022 13:54-0500 SaO2% (BldA) [Mass fraction] 94 % Dr. Jose Ramon Turenr Work Phone: [facility] 04-16-2022 13:54-0500 Systolic blood pressure 120 mm[Hg] Dr. Jose Ramon Turner Work Phone: [facility] 04-16-2022 09:58-0500 Inhaled oxygen flow rate 0 L/min Dr. Jose Ramon Turner Work Phone: [facility] 04-16-2022 06:00-0500 Body weight 121.[address] Jose Ramon Turner Work Phone: [facility] 04-16-2022 04:00-0500 Inhaled oxygen concentration 32 % Dr. Jose Ramon Turner Work Phone: [facility] 04-14-2022 10:03-0500 Body height 177.[address] Jose Ramon Turner Work Phone: [facility] 04-14-2022 01:15-0500 Body mass index (BMI) [Ratio] 38.5 kg/m2 Dr. Jose Ramon Turner Work Phone: [facility] 04-14-2022 00:37-0500 Body temperature 97.1 [degF] [facility] 04-14-2022 00:37-0500 Diastolic blood pressure 82 mm[Hg] [facility] 04-14-2022 00:37-0500 Heart rate 102 /min [facility] 04-14-2022 00:37-0500 Inhaled oxygen flow rate 2 L/min [facility] 04-14-2022 00:37-0500 Respiratory rate 22 /min [facility] 04-14-2022 00:37-0500 SaO2% (BldA) [Mass fraction] 100 % [facility] 04-14-2022 00:37-0500 Systolic blood pressure 116 mm[Hg] [facility] 04-13-2022 21:17-0500 Body height 180.34 cm [facility] 04-13-2022 21:17-0500 Body mass index (BMI) [Ratio] 35.8 kg/m2 [facility] 04-13-2022 21:17-0500 Body weight 116.57 kg [facility] 04-03-2022 10:31-0500 Body height 177.8 cm Daksha Turner Work Phone: [facility]itxmtu[facility]Crafm[facility] DO Work Phone: 04-03-2022 10:31-0500 Body mass index (BMI) [Ratio] 38.63 kg/m2 Daksha Gary Johnny Work Phone: OF-Lxmsuqj-Nfvhwa ke [facility] 400 DO Work Phone: 04-03-2022 10:31-0500 Body surface area Derived from formula 2.37 m2 Daksha Gary Johnny Work Phone: JO-Kkjupxp-Bfxogt ke [facility] 400 DO Work Phone: 04-03-2022 10:31-0500 Body temperature 97.6 [degF] Daksha Gary Johnny Work Phone: YX-Zdntmoz-Ccmqhk ke [facility] 400 DO Work Phone: 04-03-2022 10:31-0500 Body weight 122.13 kg Daksha Gary Johnny Work Phone: AZ-Nqclywi-Bjmugd ke [facility] 400 DO Work Phone: 04-03-2022 10:31-0500 Diastolic blood pressure 73 mm[Hg] Daksha Gary Johnny Work Phone: DY-Epsftwe-Okohmt ke [facility] 400 DO Work Phone: 04-03-2022 10:31-0500 Heart rate 123 /min Daksha Gary Johnny Work Phone: ST-Gdkwzqv-Ksluiq ke [facility] 400 DO Work Phone: 04-03-2022 10:31-0500 Systolic blood pressure 111 mm[Hg] Daksha Gary Johnny Work Phone: YM-Cvivygj-Qnccev ke [facility] 400 DO Work Phone: 03-11-2022 13:10-0500 Body weight 118.84 kg Haylee Wilburn MD Work Phone: [facility] 03-11-2022 13:10-0500 Diastolic blood pressure 84 mm[Hg] Haylee Wilburn MD Work Phone: [facility] 03-11-2022 13:10-0500 Heart rate 78 /min Haylee Wilburn MD Work Phone: [facility] 03-11-2022 13:10-0500 Respiratory rate 16 /min Haylee Wilburn MD Work Phone: [facility] 03-11-2022 13:10-0500 Systolic blood pressure 134 mm[Hg] Haylee Wilburn MD Work Phone: [facility] 02-17-2022 11:30-0500 Body weight 114.76 kg Haylee Wilburn MD Work Phone: [facility] 02-17-2022 11:30-0500 Diastolic blood pressure 74 mm[Hg] Haylee Wilburn MD Work Phone: [facility] 02-17-2022 11:30-0500 Heart rate 72 /min Haylee Wilburn MD Work Phone: [facility] 02-17-2022 11:30-0500 Respiratory rate 16 /min Haylee Wilburn MD Work Phone: [facility] 02-17-2022 11:30-0500 Systolic blood pressure 132 mm[Hg] Haylee Wilburn MD Work Phone: [facility] 02-16-2022 11:03-0500 Diastolic blood pressure 64 mm[Hg] Sayra Tello MD Work Phone: [facility] 02-16-2022 11:03-0500 Systolic blood pressure 90 mm[Hg] Sayra Tello MD Work Phone: [facility] 02-16-2022 10:55-0500 Body height 180.3 cm Sayra Tello MD Work Phone: [facility] 02-16-2022 10:55-0500 Body weight 115.67 kg Sayra Tello MD Work Phone: [facility] 02-16-2022 10:55-0500 Heart rate 51 /min Sayra Tello MD Work Phone: [facility] 02-16-2022 10:55-0500 SaO2% (BldA) [Mass fraction] 94 % Sayra Tello MD Work Phone: [facility] 02-13-2022 14:10-0500 Body temperature 98.2 [degF] Suman Peterson PLASTER MACHINE TENDER.PHOTO MASK PATTERN GENERATOR Work Phone: [facility] 02-13-2022 14:10-0500 Body weight 119.75 kg Suman Peterson PLASTER MACHINE TENDER.PHOTO MASK PATTERN GENERATOR Work Phone: [facility] 02-13-2022 14:10-0500 Diastolic blood pressure 87 mm[Hg] Suman Peterson PLASTER MACHINE TENDER.PHOTO MASK PATTERN GENERATOR Work Phone: [facility] 02-13-2022 14:10-0500 Heart rate 64 /min Suman Peterson PLASTER MACHINE TENDER.PHOTO MASK PATTERN GENERATOR Work Phone: [facility] 02-13-2022 14:10-0500 Respiratory rate 22 /min Suman Peterson PLASTER MACHINE TENDER.PHOTO MASK PATTERN GENERATOR Work Phone: [facility] 02-13-2022 14:10-0500 SaO2% (BldA) [Mass fraction] 94 % Suman Cullens PLASTER MACHINE TENDER.PHOTO MASK PATTERN GENERATOR Work Phone: [facility] 02-13-2022 14:10-0500 Systolic blood pressure 138 mm[Hg] Suman Peterson PLASTER MACHINE TENDER.PHOTO MASK PATTERN GENERATOR Work Phone: [facility] 02-10-2022 14:00-0500 Body temperature 97.52 [degF] Daksha Turner Other Phone: [facility] 02-10-2022 14:00-0500 Diastolic blood pressure 100 mm[Hg] Daksha Turner Other Phone: [facility] 02-10-2022 14:00-0500 Heart rate 87 /min Daksha Turner Other Phone: [facility] 02-10-2022 14:00-0500 Respiratory rate 18 /min Daksha Turner Other Phone: [facility] 02-10-2022 14:00-0500 SaO2% (BldA) [Mass fraction] 94 % Daksha Turner Other Phone: [facility] 02-10-2022 14:00-0500 Systolic blood pressure 126 mm[Hg] Daksha Turner Other Phone: [facility] 01-29-2022 15:08-0500 Respiratory rate 20 /min Dr. Jose Ramon Turner Work Phone: [facility] 01-29-2022 14:36-0500 Diastolic blood pressure 128 mm[Hg] Dr. Jose Ramon Turner Work Phone: [facility] 01-29-2022 14:36-0500 Heart rate 101 /min Dr. Jose Ramon Turner Work Phone: [facility] 01-29-2022 14:36-0500 SaO2% (BldA) [Mass fraction] 98 % Dr. Jose Ramon Turner Work Phone: [facility] 01-29-2022 14:36-0500 Systolic blood pressure 157 mm[Hg] Dr. Jose Ramon Turner Work Phone: [facility] 01-29-2022 14:00-0500 Inhaled oxygen flow rate 2 L/min Dr. Jose Ramon Turner Work Phone: [facility] 01-29-2022 11:54-0500 Body height 177.[address] Jose Ramon Turner Work Phone: [facility] [place] Work Phone: 01-29-2022 11:54-0500 Body mass index (BMI) [Ratio] 40.1 kg/m2 Dr. Jose Ramon Turner Work Phone: [facility] 01-29-2022 11:54-0500 Body temperature 97.6 [degF] Dr. Jose Ramon Turner Work Phone: [facility] 01-29-2022 11:54-0500 Body weight 126.[address] Jose Ramon Turner Work Phone: [facility] 01-20-2022 20:25-0500 Diastolic blood pressure 103 mm[Hg] Dr. Jose Ramon Turner Work Phone: [facility] 01-20-2022 20:25-0500 Heart rate 88 /min Dr. Jose Ramon Turner Work Phone: [facility] 01-20-2022 20:25-0500 Respiratory rate 31 /min Dr. Jose Ramon Turner Work Phone: [facility] 01-20-2022 20:25-0500 SaO2% (BldA) [Mass fraction] 97 % Dr. Jose Ramon Turner Work Phone: [facility] 01-20-2022 20:25-0500 Systolic blood pressure 136 mm[Hg] Dr. Jose Ramon Turner Work Phone: [facility] 01-20-2022 18:43-0500 Body height 177.[address] Jose Ramon Turner Work Phone: [facility] [place] Work Phone: 01-20-2022 18:43-0500 Body mass index (BMI) [Ratio] 30.9 kg/m2 Dr. Jose Ramon Turner Work Phone: [facility] 01-20-2022 18:43-0500 Body temperature 97.7 [degF] Dr. Jose Ramon Turner Work Phone: [facility] 01-20-2022 18:43-0500 Body weight 97.[address] Jose Ramon Turner Work Phone: [facility] 12-09-2021 10:15-0400 Body height 177.8 cm Alfredo Xavier MD Work Phone: [facility] 12-09-2021 10:15-0400 Body weight 114.31 kg Alfredo Xavier MD Work Phone: [facility] 12-09-2021 10:15-0400 Diastolic blood pressure 91 mm[Hg] Alfredo Xavier MD Work Phone: [facility] 12-09-2021 10:15-0400 Heart rate 98 /min Alfredo Xavier MD Work Phone: [facility] 12-09-2021 10:15-0400 Respiratory rate 22 /min Alfredo Xavier MD Work Phone: [facility] 12-09-2021 10:15-0400 SaO2% (BldA) [Mass fraction] 96 % Alfredo Xavier MD Work Phone: [facility] 12-09-2021 10:15-0400 Systolic blood pressure 131 mm[Hg] Alfredo Xavier MD Work Phone: [facility] 12-09-2021 07:44-0400 Body temperature 97 [degF] Dr. Jose Ramon Turner Work Phone: [facility] [place] Work Phone: 12-09-2021 07:44-0400 Diastolic blood pressure 88 mm[Hg] Dr. Jose Ramon Turner Work Phone: [facility] Work Phone: 12-09-2021 07:44-0400 Heart rate 61 /min Dr. Jose Ramon Turner Work Phone: [facility] Work Phone: 12-09-2021 07:44-0400 Respiratory rate 16 /min Dr. Jose Ramon Turner Work Phone: [facility] Work Phone: 12-09-2021 07:44-0400 SaO2% (BldA) [Mass fraction] 96 % Dr. Jose Ramon Turner Work Phone: [facility] Work Phone: 12-09-2021 07:44-0400 Systolic blood pressure 112 mm[Hg] Dr. Jose Ramon Turner Work Phone: [facility] Work Phone: 12-08-2021 17:06-0400 Inhaled oxygen flow rate 2 L/min Dr. Jose Ramon Turner Work Phone: [facility] Work Phone: 12-08-2021 12:50-0400 Body weight 116.[address] Jose Ramon Turner Work Phone: [facility] Work Phone: 12-07-2021 16:40-0400 Body mass index (BMI) [Ratio] 36.7 kg/m2 Dr. Jose Ramon Turner Work Phone: [facility] Work Phone: 12-07-2021 16:29-0400 Body temperature 98.4 [degF] [facility] Work Phone: 12-07-2021 16:29-0400 Diastolic blood pressure 78 mm[Hg] [facility] Work Phone: 12-07-2021 16:29-0400 Heart rate 98 /min [facility] Work Phone: 12-07-2021 16:29-0400 Inhaled oxygen flow rate 2 L/min [facility] Work Phone: 12-07-2021 16:29-0400 Respiratory rate 24 /min [facility] Work Phone: 12-07-2021 16:29-0400 SaO2% (BldA) [Mass fraction] 97 % [facility] Work Phone: 12-07-2021 16:29-0400 Systolic blood pressure 134 mm[Hg] [facility] Work Phone: 12-07-2021 13:38-0400 Body height 177.8 cm [facility] Work Phone: 12-07-2021 13:38-0400 Body mass index (BMI) [Ratio] 36.6 kg/m2 [facility] Work Phone: 12-07-2021 13:38-0400 Body weight 115.66 kg [facility] Work Phone: 11-19-2021 08:48-0400 Body height 177.8 cm Haylee Wilburn MD Work Phone: [facility] 11-19-2021 08:48-0400 Body weight 118.84 kg Haylee Wilburn MD Work Phone: [facility] 11-19-2021 08:48-0400 Diastolic blood pressure 82 mm[Hg] Haylee Wilburn MD Work Phone: [facility] 11-19-2021 08:48-0400 Heart rate 76 /min Haylee Wilburn MD Work Phone: [facility] 11-19-2021 08:48-0400 Respiratory rate 18 /min Haylee Wilburn MD Work Phone: [facility] 11-19-2021 08:48-0400 Systolic blood pressure 130 mm[Hg] Haylee Wilburn MD Work Phone: [facility] 10-27-2021 11:35-0400 Body height 177.8 cm Pacc 2 Work Phone: [facility] 10-27-2021 11:35-0400 Body temperature 97.7 [degF] Pacc 2 Work Phone: [facility] 10-27-2021 11:35-0400 Body weight 118.39 kg Pacc 2 Work Phone: [facility] 10-27-2021 11:35-0400 Diastolic blood pressure 88 mm[Hg] Pacc 2 Work Phone: [facility] 10-27-2021 11:35-0400 Heart rate 77 /min Pacc 2 Work Phone: [facility] 10-27-2021 11:35-0400 SaO2% (BldA) [Mass fraction] 96 % Pacc 2 Work Phone: [facility] 10-27-2021 11:35-0400 Systolic blood pressure 127 mm[Hg] Pacc 2 Work Phone: [facility] 10-09-2021 10:24-0400 Body temperature 97.7 [degF] Godfrey Maroli PLASTER MACHINE TENDER.PHOTO MASK PATTERN GENERATOR Work Phone: [facility] 10-09-2021 10:24-0400 Body weight 118.84 kg Godfrey Maroli PLASTER MACHINE TENDER.PHOTO MASK PATTERN GENERATOR Work Phone: [facility] 10-09-2021 10:24-0400 Diastolic blood pressure 89 mm[Hg] Godfrey Maroli PLASTER MACHINE TENDER.PHOTO MASK PATTERN GENERATOR Work Phone: [facility] 10-09-2021 10:24-0400 Heart rate 74 /min Godfrey Maroli PLASTER MACHINE TENDER.PHOTO MASK PATTERN GENERATOR Work Phone: [facility] 10-09-2021 10:24-0400 Respiratory rate 20 /min Godfrey Maroli PLASTER MACHINE TENDER.PHOTO MASK PATTERN GENERATOR Work Phone: [facility] 10-09-2021 10:24-0400 SaO2% (BldA) [Mass fraction] 97 % Godfrey Maroli PLASTER MACHINE TENDER.PHOTO MASK PATTERN GENERATOR Work Phone: [facility] 10-09-2021 10:24-0400 Systolic blood pressure 130 mm[Hg] Godfrey Maroli PLASTER MACHINE TENDER.PHOTO MASK PATTERN GENERATOR Work Phone: [facility] 09-22-2021 12:16-0400 Body height 180.3 cm Chaka Doris PLASTER MACHINE TENDER.PHOTO MASK PATTERN GENERATOR Work Phone: [facility] 09-22-2021 12:16-0400 Body weight 125.19 kg Chaka Doris PLASTER MACHINE TENDER.PHOTO MASK PATTERN GENERATOR Work Phone: [facility] 09-22-2021 12:16-0400 Diastolic blood pressure 90 mm[Hg] Chaka Doris PLASTER MACHINE TENDER.PHOTO MASK PATTERN GENERATOR Work Phone: [facility] 09-22-2021 12:16-0400 Heart rate 90 /min Chaka Doris PLASTER MACHINE TENDER.PHOTO MASK PATTERN GENERATOR Work Phone: [facility] 09-22-2021 12:16-0400 Respiratory rate 18 /min Chaka George PLASTER MACHINE TENDER.PHOTO MASK PATTERN GENERATOR Work Phone: [facility] 09-22-2021 12:16-0400 SaO2% (BldA) [Mass fraction] 97 % Chaka George PLASTER MACHINE TENDER.PHOTO MASK PATTERN GENERATOR Work Phone: [facility] 09-22-2021 12:16-0400 Systolic blood pressure 128 mm[Hg] Chaka George PLASTER MACHINE TENDER.PHOTO MASK PATTERN GENERATOR Work Phone: [facility] 09-11-2021 13:30-0400 Body temperature 97.11 [degF] Kenneth Chester MD Work Phone: [facility] 09-11-2021 13:30-0400 Body weight 118.07 kg Kenneth Chester MD Work Phone: [facility] 09-11-2021 13:30-0400 Diastolic blood pressure 89 mm[Hg] Kenneth Chester MD Work Phone: [facility] 09-11-2021 13:30-0400 Heart rate 92 /min Kenneth Chester MD Work Phone: [facility] 09-11-2021 13:30-0400 Respiratory rate 20 /min Kenneth Chester MD Work Phone: [facility] 09-11-2021 13:30-0400 SaO2% (BldA) [Mass fraction] 95 % Kenneth Chester MD Work Phone: [facility] 09-11-2021 13:30-0400 Systolic blood pressure 139 mm[Hg] Kenneth Chester MD Work Phone: [facility] 09-02-2021 14:09-0400 Body temperature 97.9 [degF] [place] (Trac) Work Phone: [facility] 09-02-2021 14:09-0400 Body weight 118.16 kg [place] (Trac) Work Phone: [facility] 09-02-2021 14:09-0400 Diastolic blood pressure 99 mm[Hg] [place] (Trac) Work Phone: [facility] 09-02-2021 14:09-0400 Heart rate 105 /min [place] (Trac) Work Phone: [facility] 09-02-2021 14:09-0400 Respiratory rate 22 /min [place] (Trac) Work Phone: [facility] 09-02-2021 14:09-0400 SaO2% (BldA) [Mass fraction] 100 % [place] (Trac) Work Phone: [facility] 09-02-2021 14:09-0400 Systolic blood pressure 135 mm[Hg] [place] (Trac) Work Phone: [facility] 08-19-2021 11:57-0400 Body temperature 98.1 [degF] Godfrey Clayton RN [facility] 08-19-2021 11:57-0400 Respiratory rate 18 /min Godfrey Clayton RN [facility] 08-19-2021 10:05-0400 Body weight 113.81 kg Lalo Black MD Work Phone: [facility] 08-19-2021 10:05-0400 Diastolic blood pressure 102 mm[Hg] Lalo Black MD Work Phone: [facility] 08-19-2021 10:05-0400 Heart rate 90 /min Lalo Black MD Work Phone: [facility] 08-19-2021 10:05-0400 SaO2% (BldA) [Mass fraction] 96 % Lalo Black MD Work Phone: [facility] 08-19-2021 10:05-0400 Systolic blood pressure 136 mm[Hg] Lalo Black MD Work Phone: [facility] 08-08-2021 09:19-0400 Body temperature 99 [degF] Godfrey Maroli PLASTER MACHINE TENDER.PHOTO MASK PATTERN GENERATOR Work Phone: [facility] 08-08-2021 09:19-0400 Body weight 117.98 kg Godfrey Maroli PLASTER MACHINE TENDER.PHOTO MASK PATTERN GENERATOR Work Phone: [facility] 08-08-2021 09:19-0400 Diastolic blood pressure 98 mm[Hg] Godfrey Maroli PLASTER MACHINE TENDER.PHOTO MASK PATTERN GENERATOR Work Phone: [facility] 08-08-2021 09:19-0400 Heart rate 109 /min Godfrey Maroli PLASTER MACHINE TENDER.PHOTO MASK PATTERN GENERATOR Work Phone: [facility] 08-08-2021 09:19-0400 Respiratory rate 20 /min Godfrey Maroli PLASTER MACHINE TENDER.PHOTO MASK PATTERN GENERATOR Work Phone: [facility] 08-08-2021 09:19-0400 SaO2% (BldA) [Mass fraction] 95 % Godfrey Maroli PLASTER MACHINE TENDER.PHOTO MASK PATTERN GENERATOR Work Phone: [facility] 08-08-2021 09:19-0400 Systolic blood pressure 141 mm[Hg] Godfrey Maroli PLASTER MACHINE TENDER.PHOTO MASK PATTERN GENERATOR Work Phone: [facility] 08-06-2021 09:56-0400 Body temperature 98.1 [degF] Godfrey Clayton RN [facility] 08-06-2021 09:56-0400 Body weight 118.3 kg Godfrey Clayton RN [facility] 08-06-2021 09:56-0400 Diastolic blood pressure 92 mm[Hg] Godfrey Clayton RN [facility] 08-06-2021 09:56-0400 Heart rate 99 /min Godfrey Clayton RN [facility] 08-06-2021 09:56-0400 Respiratory rate 20 /min Godfrey Clayton RN [facility] 08-06-2021 09:56-0400 SaO2% (BldA) [Mass fraction] 99 % Godfrey Clayton RN [facility] 08-06-2021 09:56-0400 Systolic blood pressure 144 mm[Hg] Godfrey Clayton RN [facility] 07-31-2021 09:23-0400 Diastolic blood pressure 103 mm[Hg] Lalo Black MD Work Phone: [facility] 07-31-2021 09:23-0400 Heart rate 72 /min Lalo Black MD Work Phone: [facility] 07-31-2021 09:23-0400 Respiratory rate 12 /min Lalo Black MD Work Phone: [facility] 07-31-2021 09:23-0400 SaO2% (BldA) [Mass fraction] 95 % Lalo Black MD Work Phone: [facility] 07-31-2021 09:23-0400 Systolic blood pressure 147 mm[Hg] Lalo Black MD Work Phone: [facility] 07-24-2021 10:13-0400 Body temperature 98.29 [degF] Godfrey Maroli PLASTER MACHINE TENDER.PHOTO MASK PATTERN GENERATOR Work Phone: [facility] 07-24-2021 10:13-0400 Body weight 118 kg Godfrey Maroli PLASTER MACHINE TENDER.PHOTO MASK PATTERN GENERATOR Work Phone: [facility] 07-24-2021 10:13-0400 Diastolic blood pressure 92 mm[Hg] Godfrey Maroli PLASTER MACHINE TENDER.PHOTO MASK PATTERN GENERATOR Work Phone: [facility] 07-24-2021 10:13-0400 Heart rate 88 /min Godfrey Maroli PLASTER MACHINE TENDER.PHOTO MASK PATTERN GENERATOR Work Phone: [facility] 07-24-2021 10:13-0400 Respiratory rate 20 /min Godfrey Maroli PLASTER MACHINE TENDER.PHOTO MASK PATTERN GENERATOR Work Phone: [facility] 07-24-2021 10:13-0400 SaO2% (BldA) [Mass fraction] 99 % Godfrey Maroli PLASTER MACHINE TENDER.PHOTO MASK PATTERN GENERATOR Work Phone: [facility] 07-24-2021 10:13-0400 Systolic blood pressure 146 mm[Hg] Godfrey Maroli PLASTER MACHINE TENDER.PHOTO MASK PATTERN GENERATOR Work Phone: [facility] 07-21-2021 08:57-0400 Diastolic blood pressure 91 mm[Hg] Godfrey Clayton RN [facility] 07-21-2021 08:57-0400 Systolic blood pressure 146 mm[Hg] Godfrey Clayton RN [facility] 07-21-2021 08:49-0400 Body temperature 98.2 [degF] Godfrey Clayton RN [facility] 07-21-2021 08:49-0400 Heart rate 72 /min Godfrey Clayton RN [facility] 07-21-2021 08:49-0400 Respiratory rate 20 /min Godfrey Clayton RN [facility] 07-21-2021 08:49-0400 SaO2% (BldA) [Mass fraction] 99 % Godfrey Clayton RN [facility] 07-14-2021 14:42-0400 Body temperature 99.5 [degF] Godfrey Maroli PLASTER MACHINE TENDER.PHOTO MASK PATTERN GENERATOR Work Phone: [facility] 07-14-2021 14:42-0400 Body weight 118.48 kg Godfrey Maroli PLASTER MACHINE TENDER.PHOTO MASK PATTERN GENERATOR Work Phone: [facility] 07-14-2021 14:42-0400 Diastolic blood pressure 99 mm[Hg] Godfrey Maroli PLASTER MACHINE TENDER.PHOTO MASK PATTERN GENERATOR Work Phone: [facility] 07-14-2021 14:42-0400 Heart rate 77 /min Godfrey Maroli PLASTER MACHINE TENDER.PHOTO MASK PATTERN GENERATOR Work Phone: [facility] 07-14-2021 14:42-0400 Respiratory rate 20 /min Godfrey Maroli PLASTER MACHINE TENDER.PHOTO MASK PATTERN GENERATOR Work Phone: [facility] 07-14-2021 14:42-0400 SaO2% (BldA) [Mass fraction] 100 % Godfrey Maroli PLASTER MACHINE TENDER.PHOTO MASK PATTERN GENERATOR Work Phone: [facility] 07-14-2021 14:42-0400 Systolic blood pressure 143 mm[Hg] Godfrey Maroli PLASTER MACHINE TENDER.PHOTO MASK PATTERN GENERATOR Work Phone: [facility] 07-02-2021 11:53-0400 Diastolic blood pressure 89 mm[Hg] Kenneth Chester MD Work Phone: [facility] 07-02-2021 11:53-0400 Heart rate 71 /min Kenneth Chester MD Work Phone: [facility] 07-02-2021 11:53-0400 Respiratory rate 20 /min Kenneth Chester MD Work Phone: [facility] 07-02-2021 11:53-0400 SaO2% (BldA) [Mass fraction] 98 % Kenneth Chester MD Work Phone: [facility] 07-02-2021 11:53-0400 Systolic blood pressure 150 mm[Hg] Kenneth Chester MD Work Phone: [facility] 06-23-2021 10:56-0400 Body weight 115.03 kg Adriana Hodge MD Work Phone: [facility] 06-23-2021 10:56-0400 Diastolic blood pressure 92 mm[Hg] Adriana Hodge MD Work Phone: [facility] 06-23-2021 10:56-0400 Heart rate 59 /min Adriana Hodge MD Work Phone: [facility] 06-23-2021 10:56-0400 Systolic blood pressure 142 mm[Hg] Adriana Hodge MD Work Phone: [facility] 06-19-2021 19:35-0400 Body temperature 98.6 [degF] Family Unavailable [facility] 06-19-2021 19:35-0400 Diastolic blood pressure 90 mm[Hg] Family Unavailable [facility] 06-19-2021 19:35-0400 Heart rate 71 /min Family Unavailable [facility] 06-19-2021 19:35-0400 Respiratory rate 20 /min Family Unavailable [facility] [facility]19[facility]21 19:35-0400 SaO2% (BldA) [Mass fraction] 100 % Family Unavailable [facility] 06-19-2021 19:35-0400 Systolic blood pressure 156 mm[Hg] Family Unavailable [facility] 06-19-2021 15:47-0400 Body height 180.34 cm Family Unavailable [facility] 06-19-2021 15:47-0400 Body mass index (BMI) [Ratio] 34.1 kg/m2 Family Unavailable [facility] 06-19-2021 15:47-0400 Body weight 111 kg Family Unavailable [facility] Encounters Encounter Date Encounter Type Care Provider Facility Start: 10-02-2024 End: 10-02-2024 Patient encounter procedure Gini CONLEY -[facility] Work Phone: Start: 10-02-2024 End: 10-02-[address] Daksha Turner MD Work Phone: -[facility] Start: 10-02-2024 End: 10-02-2024 ambulatory Daksha Turner Facility:[facility] Start: 09-26-2024 Non-patient / Non-visit Gini plascencia NP-Tangela -[facility] Work Phone: Start: 09-26-2024 ambulatory Daksha Turner Faci lity:[facility] Start: 09-25-2024 ambulatory Daksha Turner Faci lity:[facility] Start: 09-25-2024 Non-patient / Non-visit Dr. Peg CLEMENT -[facility] Start: 09-25-2024 End: 09-25-[address] Daksha Turner MD Work Phone: -[facility] Start: 09-25-2024 End: 09-25-[address] Daksha Turner MD -[facility] Work Phone: Start: 09-25-2024 End: 09-25-[address] Daksha Turner MD Work Phone: -Cardiovascular Services Start: 09-25-2024 End: 09-25-2024 Patient encounter procedure Gini CONLEY -Cardiovascular Services Work Phone: Start: 09-24-2024 End: 09-25-2024 ambulatory Daksha Turner Facility:[facility] Start: 09-24-2024 Non-patient / Non-visit Dr. Peg CLEMENT -[facility] Start: 09-12-2024 ambulatory Daksha Nicholas lity:[facility] Start: 08-14-2024 End: 09-04-[address] Daksha Turner MD -Nutritional Services Work Phone: Start: 08-14-[address] Fazal Turner MD -Nutritional Services Work Phone: Start: 08-14-2024 End: 09-04-[address] Daksha Turner MD Work Phone: -Nutritional Services Start: 08-14-2024 End: 08-14-2024 Patient encounter procedure Gini Couch NP-Tangela -[facility] Work Phone: Start: 08-14-2024 End: 08-14-[address] Daksha Turner MD Work Phone: [facility] Work Phone: Start: 08-14-2024 End: 08-14-2024 ambulatory Gini Couch Facility:[facility] Start: 08-01-2024 ambulatory Daksha Arthuri lity:[facility] Start: 07-18-2024 ambulatory Daksha Nicholas lity:[facility] Start: 06-20-2024 End: 06-20-[address] Daksha Turner MD Work Phone: [facility] Work Phone: Start: 06-20-2024 End: 06-20-[address] Dangelo Botello MD -[facility] Work Phone: Start: 06-20-2024 End: 06-20-2024 ambulatory Daksha Turner Facility:[facility] Start: 06-13-2024 End: 06-13-[address] Daksha Turner MD Work Phone: [facility] Work Phone: Start: 06-13-2024 End: 06-13-[address] Dangelo Botello MD -Cat Scan, [facility] Work Phone: Start: 06-13-2024 End: 06-13-2024 ambulatory Daksha Turner Facility:[facility] Start: 06-05-2024 End: 06-05-[address] Daksha Turner MD -Nutritional Services Work Phone: Start: 06-05-2024 End: 06-05-[address] Daksha Turner MD Work Phone: [facility] Work Phone: Start: 03-22-2024 End: 03-22-[address] Isidra Chiu DO -Laboratory Work Phone: Start: 03-22-2024 End: 03-22-2024 ambulatory Isidra Chiu Facility:[facility] Start: 02-08-2024 End: 02-08-[address] Daksha Turner MD -Cat Scan, [facility] Work Phone: Start: 02-08-2024 End: 02-08-2024 ambulatory Daksha Turner Facility:[facility] Start: 01-11-2024 End: 01-11-2024 ambulatory Daksha Turner Facility:[facility] Start: 12-22-2023 End: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 regurgitation (Primary Dx); Cardiomyopathy, nonischemic (HCC) Start: 07-22-2021 End: 07-22-2021 Telemedicine consultation with patient Lalo Black MD Work Phone: [facility] Start: 07-21-2021 Chart abstracting Godfrey acuña APRN.PHOTO MASK PATTERN GENERATOR Work Phone: Hematology/Oncology Start: 07-21-2021 Telephone encounter Financial Navigator Cullen Work Phone: Hematology/Oncology Comment on above: Benefits Investigati on Start: 07-21-2021 End: 07-21-2021 Nursing evaluation of patient and report Godfrey Clayton black off worker/Oncology Comment on above: Malignant neoplasm o f kidney excluding renal pelvis, unspecified laterality (HCC) (Primary Dx) Start: 07-21-2021 End: 07-21-2021 Subsequent hospital visit by physician Bonnie Main Ca Work Phone: Radiology Comment on [...] Start: 07-17-2021 End: 07-17-2021 Patient encounter procedure [facility] Start: 07-15-2021 End: 07-15-2021 ambulatory [facility] Facility:[facility] Start: 07-14-2021 End: 07-15-2021 Orders Only Godfrey Ohara APRN.PHOTO MASK PATTERN GENERATOR Work Phone: Hematology/Oncology Comment on above: Malignant neoplasm o f kidney excluding renal pelvis, unspecified laterality (HCC) (Primary Dx); Renal cell carcinoma, unspecified laterality (HCC) Malignant neoplasm o f right kidney, except renal pelvis (HCC) (Primary Dx) Anxiety (Primary Dx) Start: 07-11-2021 Telephone encounter Godfrey Clayton RN Hematology/Oncology Comment on above: Research ([facility] 1820) Malignant neoplasm o f right kidney, except renal pelvis (HCC) (Primary Dx); Malignant neoplasm of kidney excluding renal pelvis, unspecified laterality (HCC) Start: 07-08-2021 End: 07-08-2021 ambulatory [facility] Facility:[facility] Start: 07-08-2021 End: 07-08-2021 Nursing evaluation of patient and report Godfrey Clayton RN Hematology/Oncology Comment on above: Malignant neoplasm o f kidney excluding renal pelvis, unspecified laterality (HCC) (Primary Dx) Start: 07-07-2021 Telephone encounter Godfrey Clayton RN Hematology/Oncology Comment on above: Research ([facility] 1820) Start: 07-02-2021 End: 07-02-2021 ambulatory Kenneth Chester MD Work Phone: Hematology/Oncology Comment on above: Malignant neoplasm o f kidney, unspecified laterality (HCC); Malignant neoplasm of kidney excluding renal pelvis, unspecified laterality (HCC); Chest wall mass Start: 07-02-2021 End: 07-02-2021 Patient encounter procedure Kenneth Chester MD Work Phone: [facility] Start: 07-01-2021 End: 07-01-2021 ambulatory ANNE-MARIE CHAPARRO Facility:[facility] Start: 06-30-2021 End: 07-01-2021 ambulatory JOHN GTZ Facility:[facility] Start: 06-30-2021 End: 06-30-2021 Subsequent hospital visit by physician [facility] Comment on above: Malignant neoplasm o f kidney, unspecified laterality (HCC) [C64.9] Start: 06-30-2021 End: 06-30-2021 ambulatory ADRIANA HODGE Facility:[facility] Start: 06-30-2021 End: 06-30-2021 Subsequent hospital visit by physician [facility] Start: 06-27-2021 End: 06-27-2021 ambulatory ADRIANA HODGE Facility:[facility] Start: 06-27-2021 End: 06-27-2021 Subsequent hospital [...] 06-20-2021 End: 06-20-2021 ambulatory DAWIT URBINA MD Facility:[facility] Start: 06-19-2021 End: 06-19-2021 Emergency department patient visit Family Physician Unavailable Facility:[facility] Start: 06-19-2021 End: 06-19-2021 Emergency department patient visit Family Unavailable [facility] Start: 06-30-2004 End: 11-26-2014 Patient encounter status Ekg/[facility] Work Phone: [facility] Procedures Date Procedure Procedure Detail Performing Clinician [...] Dr. Jose Ramon Turner Work Phone: Start: 03-15-[address] Jose Ramon Turner [...] 02-06-2022 Arterial Full Panel -Next Draw [facility] Start: 02-06-[address] JULIENNE HERNANDEZ Comment on above: Performed By: #### T +S #### [address] [id number] Start: 01-29-2022 Plain chest X-ray Dr. Tangela Turner Work Phone: Start: 01-27-[address] JULIENNE HERNANDEZ Comment on above: Performed By: #### C BC #### [address] [address] Start: 01-20-2022 Plain chest X-ray Dr. Tangela [...] Work Phone: Start: 10-27-2021 Antibody screen KENNETH O RNSTEIN Comment on above: Order Comment: Speci men Type: BLOOD SPECIMENOrdering Facility: [facility] Address: [address] [place] [address] [place] [address] Performed By: #### T SCR30 ####CC MAIN BLOOD BANKCLIA [id number] GILSON HOROWITZ [id number] [address] [place] Start: 10-20-2021 Adult depression scr eening assessment Haylee Wilburn MD Work Phone: Start: 09-23-2021 Lipid 1996 panel - S desirae or Plasma Ekg/Holter Shellsandi Work Phone: Start: 09-22-2021 End: 09-22-2021 Ecg [...] material Adriana Hodge MD Work Phone: Start: 04-18-2022 Urnls dip stick/tabl et rgnt auto w/o [...] Detail Author Start: 07-25-2028 Urine microalbumin profile [facility] Start: 09-23-2026 Lipid panel Lipid Screening [facility] Start: 09-23-2026 LIPID SCREEN LIPID SCREEN [facility] Start: 04-09-2025 DIABETES SCREEN DIABETES SCREEN [facility] Start: 04-09-2025 Diabetes Screening Diabetes Screenin g [facility] Start: 02-17-2025 DIABETES SCREEN DIABETES SCREEN [facility] Start: 11-13-2024 ambulatory Ambulatory Facility:[facility] Start: 11-05-2024 LIPID SCREEN LIPID SCREEN [facility] Start: 11-05-2024 PROSTATE CANCER SCRE ENING DISCUSSION PROSTATE CANCER SCREENING DISCUSSION [facility] Start: 11-05-2024 Prostate specific an tigen measurement Prostate Cancer Screening Discussion [facility] Start: 10-27-2024 DIABETES SCREEN DIABETES SCREEN [facility] Start: 10-09-2024 DIABETES SCREEN DIABETES SCREEN [facility] Start: 09-26-2024 DIABETES SCREEN DIABETES SCREEN [facility] Start: 09-11-2024 DIABETES SCREEN DIABETES SCREEN [facility] Start: 09-03-2024 DIABETES SCREEN DIABETES SCREEN [facility] Start: 09-02-2024 DIABETES SCREEN DIABETES SCREEN [facility] Start: 08-19-2024 DIABETES SCREEN DIABETES SCREEN [facility] Start: 08-17-2024 DIABETES SCREEN DIABETES SCREEN [facility] Start: 08-14-2024 Evaluation of diagno stic study results [facility] Start: 08-08-2024 DIABETES SCREEN DIABETES SCREEN [facility] Start: 08-06-2024 DIABETES SCREEN DIABETES SCREEN [facility] Start: 07-24-2024 DIABETES SCREEN DIABETES SCREEN [facility] Start: 07-21-2024 DIABETES SCREEN DIABETES SCREEN [facility] Start: 06-20-2024 DIABETES SCREEN DIABETES SCREEN [facility] Start: 11-07-2023 Covid-19 Vaccine () Covid-19 Vaccine () [facility] Start: 11-07-2023 Influenza vaccination Influenza Vacc ine (#1) [facility] Start: 02-16-2023 BP CONTROLLED (<130/80) BP CON TROLLED (<130/80) [facility] Start: 12-17-2022 Patient discharge [facility] Start: 12-16-2022 Admission procedure [facility] Start: 12-15-2022 End: 12-16-2022 [facility] Start: 12-15-2022 Continuous positive airway pressure ventilation treatment [facility] Start: 12-15-2022 Ambulation without limitation [facility] Start: 12-15-2022 Assessment of risk o f venous thromboembolism [facility] Start: 12-15-2022 Fluid restriction [facility] Start: 12-15-2022 Insertion of cathete r into peripheral vein [facility] Start: 12-15-2022 Measuring intake and output [facility] Start: 12-15-2022 Oxygen therapy [facility] Start: 12-15-2022 Providing care accor ding to standard [facility] Start: 12-15-2022 Referral to service [facility] Start: 12-15-2022 Admission procedure [facility] Start: 12-15-2022 Following clinical p athway protocol [facility] Start: 12-15-2022 Transfusion of blood product [facility] Start: 12-15-2022 Patient referral to dietitian [facility] Start: 10-20-2022 Adult depression scr eening assessment DEPRESSION SCREENING [facility] Start: 09-23-2022 BP CONTROLLED (<130/80) BP CON TROLLED (<130/80) [facility] Start: 09-23-2022 Hepatitis B surface antibody level LDL CHOLESTEROL [facility] Start: 07-06-2022 [facility]UV, Provider: Aravind Hernandez, Status: Pen, Time: 1:40 PM [facility]UV, Provider: Aravind Hernandez, Status: Pen, Time: 1:40 PM [id number] SJW 400 DO Work Phone: Start: 06-29-2022 Patient discharge [facility] Start: 06-28-2022 Following clinical p athway protocol [facility] Start: 06-28-2022 Assessment of risk o f venous thromboembolism [facility] Start: 06-28-2022 Continuous positive airway pressure ventilation treatment [facility] Start: 06-28-2022 Inhalation therapy procedure [facility] Start: 06-28-2022 Insertion of cathete r into peripheral vein [facility] Start: 06-28-2022 Introduction of urin rebecca catheter [facility] Start: 06-28-2022 Measuring intake and output [facility] Start: 06-28-2022 Oxygen therapy [facility] Start: 06-28-2022 End: 06-28-2022 Patient referral to dietitian [facility] Start: 06-28-2022 Providing care accor ding to standard [facility] Start: 06-28-2022 Provision of activit y privileges [facility] Start: 06-28-2022 Referral to service [facility] Start: 06-28-2022 End: 06-28-2022 [facility] Start: 06-28-2022 Verification routine [facility] Start: 06-28-2022 Admission procedure [facility] Start: 06-27-2022 Troponin I measurement [facility] Start: 06-27-2022 [facility] Start: 06-20-2022 ANNUAL PCP TEAM PERSONNEL CONSULTANT SEFERINO DISEASE VISIT ANNUAL PCP TEAM CHRONIC DISEASE VISIT [facility] Start: 05-27-2022 Patient referral [facility] Work Phone: Start: 05-20-2022 Patient discharge [facility] Start: 05-19-2022 Continuous positive airway pressure ventilation treatment [facility] Start: 05-18-2022 Dual pressure sponta neous ventilation support [facility] Start: 05-18-2022 Following clinical p athway protocol [facility] Start: 05-18-2022 Assessment of risk o f venous thromboembolism [facility] Start: 05-18-2022 Continuous pulse oximetry [facility] Start: 05-18-2022 Insertion of cathete r into peripheral vein [facility] Start: 05-18-2022 Measuring intake and output [facility] Start: 05-18-2022 Oxygen therapy [facility] Start: 05-18-2022 Providing care accor ding to standard [facility] Start: 05-18-2022 Provision of activit y privileges [facility] Start: 05-18-2022 [facility] Start: 05-18-2022 Verification routine [facility] Start: 05-18-2022 Admission procedure [facility] Start: 05-18-2022 [facility] Start: 05-18-2022 Patient referral to dietitian [facility] Start: 04-17-2022 Prothrombin time [facility] Start: 04-16-2022 Patient discharge [facility] Start: 04-16-2022 Prothrombin time [facility] Start: 04-16-2022 Oxygen therapy [facility] Start: 04-15-2022 [facility] Start: 04-15-2022 Prothrombin time [facility] Start: 04-14-2022 Continuous pulse oximetry [facility] Start: 04-14-2022 [facility] Start: 04-14-2022 Application of intermittent pneumatic compression device [facility] Start: 04-14-2022 Following clinical p athway protocol [facility] Start: 04-14-2022 Chemotherapy care management [facility] Start: 04-14-2022 Elevation of affecte d extremity [facility] Start: 04-14-2022 Fluid restriction [facility] Start: 04-14-2022 Notification of physician [facility] Start: 04-14-2022 Patient education [facility] Start: 04-14-2022 End: 04-14-2022 [facility] Start: 04-14-2022 Continuous positive airway pressure ventilation treatment [facility] Start: 04-13-2022 Admission procedure [facility] Start: 03-25-2022 End: 05-25-2022 CBC W Auto Differential panel - Blood CBC + DIFF Lab Routine Renal cell carcinoma of right kidney (HCC) Expected: 03/25/2022, Expires: 05/25/2022 [facility] Work Phone: Comment on above: Expected: 03/25/2022 , Expires: 05/25/2022 Start: 03-25-2022 End: 05-25-2022 Comprehensive metabolic 2000 panel - Serum or Plasma COMP METABOLIC PANEL Lab Routine Renal cell carcinoma of right kidney (HCC) Expected: 03/25/2022, Expires: 05/25/2022 [facility] Work Phone: Comment on above: Expected: 03/25/2022 , Expires: 05/25/2022 Start: 03-25-2022 End: 05-25-2022 Thyrotropin [Units/volume] in Serum or Plasma TSH BLD Lab Routine Renal cell carcinoma of right kidney (HCC) Expected: 03/25/2022, Expires: 05/25/2022 [facility] Work Phone: Comment on above: Expected: 03/25/2022 , Expires: 05/25/2022 Start: 03-08-2022 DEPRESSION ASSESSMENT DEPRESSION ASS ESSMENT [facility] Start: 02-16-2022 End: 04-18-2022 Basic metabolic 2000 panel - Serum or Plasma BASIC METABOLIC PNL Lab Routine Acute decompensated heart failure (HCC) Paroxysmal atrial fibrillation (HCC) Expected: 02/16/2022, Expires: 04/18/2022 [facility] Work Phone: Comment on above: Expected: 02/16/2022 , Expires: 04/18/2022 Start: 02-08-2022 End: 02-09-2023 Bisacodyl Rectal 10 mg Suppository Daily PRN ; Suppository (DULCOLAX)DOSE = 10 mg Rectal Daily, PRN Constipation Start: 08-Feb-2022 End: 08-Feb-2023 Ordered: 08-Feb-2022 Deep Tamez [facility] Start: 02-06-2022 End: 02-07-2023 [facility] Comment on above: Minimize narcotics May be [...] reaches 100 mg/dL or greater. Start: 02-06-2022 [facility], Provider: Aravind Hernandez, Status: Pen, Time: 9:30 AM [facility], Provider: Aravind Hernandez, Status: Pen, Time: 9:30 AM [id number] SJW 400 DO Work Phone: Start: 01-29-2022 Chemotherapy care management [facility] Start: 01-20-2022 Plain chest X-ray Chest 1 View (Portable) [facility] Work Phone: Start: 01-20-2022 XR Chest Single view [facility] Work Phone: Start: 12-30-2021 End: 03-01-2022 aPTT in Platelet poor plasma by Coagulation assay ACTIVATED PTT Lab Routine Renal cell carcinoma of right kidney (HCC) Expected: 12/30/2021 (Approximate), Expires: 03/01/2022 [facility] Work Phone: Comment on above: Expected: 12/30/2021 (Approximate), Expires: 03/01/2022 Start: 12-30-2021 End: 03-01-2022 CBC panel - Blood by Automated count CBC Lab Routine Renal cell carcinoma of right kidney (HCC) Expected: 12/30/2021 (Approximate), Expires: 03/01/2022 [facility] Work Phone: Comment on above: Expected: 12/30/2021 (Approximate), Expires: 03/01/2022 Start: 12-30-2021 End: 03-01-2022 Comprehensive metabolic 2000 panel - Serum or Plasma COMP METABOLIC PANEL Lab Routine Renal cell carcinoma of right kidney (HCC) Expected: 12/30/2021 (Approximate), Expires: 03/01/2022 [facility] Work Phone: Comment on above: Expected: 12/30/2021 (Approximate), Expires: 03/01/2022 Start: 12-30-2021 End: 03-01-2022 CONFIRM BLOOD TYPE CONFIRM BLOOD TYPE Blood Bank Routine Renal cell carcinoma of right kidney (HCC) Expected: 12/30/2021 (Approximate), Expires: 03/01/2022 [facility] Work Phone: Comment on above: Expected: 12/30/2021 (Approximate), Expires: 03/01/2022 Start: 12-30-2021 End: 03-01-2022 PT panel - Platelet poor plasma by Coagulation assay PROTHROMBIN TIME/PT Lab Routine Renal cell carcinoma of right kidney (HCC) Expected: 12/30/2021 (Approximate), Expires: 03/01/2022 [facility] Work Phone: Comment on above: Expected: 12/30/2021 (Approximate), Expires: 03/01/2022 Start: 12-30-2021 End: 12-30-2022 SARS-CoV-2 (COVID-19) RNA [Presence] in Respiratory specimen by SANDOVAL with probe detection PRE-PROCEDURE & PRE-OPERATIVE COVID Microbiology Routine Renal cell carcinoma of right kidney (HCC) Expected: 12/30/2021, Expires: 12/30/2022 [facility] Work Phone: Comment on above: Expected: 12/30/2021 , Expires: 12/30/2022 Start: 12-30-2021 End: 03-01-2022 TYPE AND SCREEN,30 DAY TYPE AND SCREEN,30 DAY Blood Bank Routine Renal cell carcinoma of right kidney (HCC) Expected: 12/30/2021 (Approximate), Expires: 03/01/2022 [facility] Work Phone: Comment on above: Expected: 12/30/2021 (Approximate), Expires: 03/01/2022 Start: 12-09-2021 Patient discharge [facility] Work Phone: Start: 12-08-2021 Inhalation therapy procedure [facility] Work Phone: Start: 12-07-2021 Chemotherapy care management [facility] Work Phone: Start: 12-07-2021 Ambulation without limitation [facility] Work Phone: Start: 12-07-2021 Assessment of risk o f venous thromboembolism [facility] Work Phone: Start: 12-07-2021 Catheterization of vein [facility] Work Phone: Start: 12-07-2021 Insertion of cathete r into peripheral vein [facility] Work Phone: Start: 12-07-2021 Measuring intake and output [facility] Work Phone: Start: 12-07-2021 Providing care accor ding to standard [facility] Work Phone: Start: 12-07-2021 [facility] Work Phone: Start: 12-07-2021 Verification routine [facility] Work Phone: Start: 12-07-2021 Admission procedure [facility] Work Phone: Start: 12-07-2021 Following clinical p athway protocol [facility] Work Phone: Start: 12-07-2021 Troponin I measurement [facility] Work Phone: Start: 12-06-2021 Influenza vaccination Influenza Vacc ine (#1) [facility] Start: 11-06-2021 Influenza vaccination [facility] Start: 10-16-2021 End: 10-17-2021 aPTT in Platelet poor plasma by Coagulation assay ACTIVATED PTT Lab STAT Malignant neoplasm of right kidney, except renal pelvis (HCC) Expected: 10/16/2021, Expires: 10/17/2021 [facility] Work Phone: Comment on above: Expected: 10/16/2021 , Expires: 10/17/2021 Start: 10-16-2021 End: 10-17-2021 CBC W Auto Differential panel - Blood CBC + DIFF Lab STAT Malignant neoplasm of right kidney, except renal pelvis (HCC) Expected: 10/16/2021, Expires: 10/17/2021 [facility] Work Phone: Comment on above: Expected: 10/16/2021 , Expires: 10/17/2021 Start: 10-16-2021 End: 10-17-2021 Comprehensive metabolic 2000 panel - Serum or Plasma COMP METABOLIC PANEL Lab STAT Malignant neoplasm of right kidney, except renal pelvis (HCC) Expected: 10/16/2021, Expires: 10/17/2021 [facility] Work Phone: Comment on above: Expected: 10/16/2021 , Expires: 10/17/2021 Start: 10-16-2021 End: 09-26-2022 Ct abdomen & pelvis w/contrast material CT ABD/PEL W IVCON Radiology Routine Malignant neoplasm of right kidney, except renal pelvis (HCC) Expected: 10/16/2021, Expires: 09/26/2022 [facility] Work Phone: Comment on above: Expected: 10/16/2021 , Expires: 09/26/2022 Start: 10-16-2021 End: 09-26-2022 Ct thorax w/contrast material CT CHEST W IVCON Radiology Routine Malignant neoplasm of right kidney, except renal pelvis (HCC) Expected: 10/16/2021, Expires: 09/26/2022 [facility] Work Phone: Comment on above: Expected: 10/16/2021 , Expires: 09/26/2022 Start: 10-16-2021 End: 10-17-2021 Lactate dehydrogenase [Enzymatic activity/volume] in Serum or Plasma LD LACTATE DEHYDRO Lab STAT Malignant neoplasm of right kidney, except renal pelvis (HCC) Expected: 10/16/2021, Expires: 10/17/2021 [facility] Work Phone: Comment on above: Expected: 10/16/2021 , Expires: 10/17/2021 Start: 10-16-2021 End: 10-17-2021 Magnesium [Mass/volume] in Serum or Plasma MAGNESIUM BLD Lab STAT Malignant neoplasm of right kidney, except renal pelvis (HCC) Expected: 10/16/2021, Expires: 10/17/2021 [facility] Work Phone: Comment on above: Expected: 10/16/2021 , Expires: 10/17/2021 Start: 10-16-2021 End: 10-17-2021 Phosphate [Mass/volume] in Serum or Plasma PHOSPHORUS INORGANIC Lab STAT Malignant neoplasm of right kidney, except renal pelvis (HCC) Expected: 10/16/2021, Expires: 10/17/2021 [facility] Work Phone: Comment on above: Expected: 10/16/2021 , Expires: 10/17/2021 Start: 10-16-2021 End: 10-17-2021 PT panel - Platelet poor plasma by Coagulation assay PROTHROMBIN TIME/PT Lab STAT Malignant neoplasm of right kidney, except renal pelvis (HCC) Expected: 10/16/2021, Expires: 10/17/2021 [facility] Work Phone: Comment on above: Expected: 10/16/2021 , Expires: 10/17/2021 Start: 10-16-2021 End: 10-17-2021 Urate [Mass/volume] in Serum or Plasma URIC ACID BLOOD Lab STAT Malignant neoplasm of right kidney, except renal pelvis (HCC) Expected: 10/16/2021, Expires: 10/17/2021 [facility] Work Phone: Comment on above: Expected: 10/16/2021 , Expires: 10/17/2021 Start: 10-02-2021 End: 10-03-2021 aPTT in Platelet poor plasma by Coagulation assay ACTIVATED PTT Lab STAT Malignant neoplasm of right kidney, except renal pelvis (HCC) Expected: 10/02/2021, Expires: 10/03/2021 [facility] Work Phone: Comment on above: Expected: 10/02/2021 , Expires: 10/03/2021 Start: 10-02-2021 End: 10-03-2021 CBC W Auto Differential panel - Blood CBC + DIFF Lab STAT Malignant neoplasm of right kidney, except renal pelvis (HCC) Expected: 10/02/2021, Expires: 10/03/2021 [facility] Work Phone: Comment on above: Expected: 10/02/2021 , Expires: 10/03/2021 Start: 10-02-2021 End: 10-03-2021 CLINICAL TRIAL DRAW CLINICAL TRIAL DRAW Lab STAT Malignant neoplasm of right kidney, except renal pelvis (HCC) Expected: 10/02/2021, Expires: 10/03/2021 [facility] Work Phone: Comment on above: Expected: 10/02/2021 , Expires: 10/03/2021 Start: 10-02-2021 End: 10-03-2021 Comprehensive metabolic 2000 panel - Serum or Plasma COMP METABOLIC PANEL Lab STAT Malignant neoplasm of right kidney, except renal pelvis (HCC) Expected: 10/02/2021, Expires: 10/03/2021 [facility] Work Phone: Comment on above: Expected: 10/02/2021 , Expires: 10/03/2021 Start: 10-02-2021 End: 10-03-2021 Lactate dehydrogenase [Enzymatic activity/volume] in Serum or Plasma LD LACTATE DEHYDRO Lab STAT Malignant neoplasm of right kidney, except renal pelvis (HCC) Expected: 10/02/2021, Expires: 10/03/2021 [facility] Work Phone: Comment on above: Expected: 10/02/2021 , Expires: 10/03/2021 Start: 10-02-2021 End: 10-03-2021 Magnesium [Mass/volume] in Serum or Plasma MAGNESIUM BLD Lab STAT Malignant neoplasm of right kidney, except renal pelvis (HCC) Expected: 10/02/2021, Expires: 10/03/2021 [facility] Work Phone: Comment on above: Expected: 10/02/2021 , Expires: 10/03/2021 Start: 10-02-2021 End: 10-03-2021 Phosphate [Mass/volume] in Serum or Plasma PHOSPHORUS INORGANIC Lab STAT Malignant neoplasm of right kidney, except renal pelvis (HCC) Expected: 10/02/2021, Expires: 10/03/2021 [facility] Work Phone: Comment on above: Expected: 10/02/2021 , Expires: 10/03/2021 Start: 10-02-2021 End: 10-03-2021 PT panel - Platelet poor plasma by Coagulation assay PROTHROMBIN TIME/PT Lab STAT Malignant neoplasm of right kidney, except renal pelvis (HCC) Expected: 10/02/2021, Expires: 10/03/2021 [facility] Work Phone: Comment on above: Expected: 10/02/2021 , Expires: 10/03/2021 Start: 10-02-2021 End: 10-03-2021 Thyrotropin [Units/volume] in Serum or Plasma TSH BLD Lab STAT Malignant neoplasm of right kidney, except renal pelvis (HCC) Expected: 10/02/2021, Expires: 10/03/2021 [facility] Work Phone: Comment on above: Expected: 10/02/2021 , Expires: 10/03/2021 Start: 10-02-2021 End: 10-03-2021 Thyroxine (T4) free [Mass/volume] in Serum or Plasma T4 FREE/FREE THYROX Lab STAT Malignant neoplasm of right kidney, except renal pelvis (HCC) Expected: 10/02/2021, Expires: 10/03/2021 [facility] Work Phone: Comment on above: Expected: 10/02/2021 , Expires: 10/03/2021 Start: 10-02-2021 End: 10-03-2021 Triiodothyronine (T3) Free [Mass/volume] in Serum or Plasma T3 FREE BLD Lab STAT Malignant neoplasm of right kidney, except renal pelvis (HCC) Expected: 10/02/2021, Expires: 10/03/2021 [facility] Work Phone: Comment on above: Expected: 10/02/2021 , Expires: 10/03/2021 Start: 10-02-2021 End: 10-03-2021 Urate [Mass/volume] in Serum or Plasma URIC ACID BLOOD Lab STAT Malignant neoplasm of right kidney, except renal pelvis (HCC) Expected: 10/02/2021, Expires: 10/03/2021 [facility] Work Phone: Comment on above: Expected: 10/02/2021 , Expires: 10/03/2021 Start: 08-19-2021 End: 08-20-2021 aPTT in Platelet poor plasma by Coagulation assay ACTIVATED PTT Lab STAT Malignant neoplasm of right kidney, except renal pelvis (HCC) Expected: 08/19/2021, Expires: 08/20/2021 [facility] Work Phone: Comment on above: Expected: 08/19/2021 , Expires: 08/20/2021 Start: 08-19-2021 End: 08-20-2021 CBC W Auto Differential panel - Blood CBC + DIFF Lab STAT Malignant neoplasm of right kidney, except renal pelvis (HCC) Expected: 08/19/2021, Expires: 08/20/2021 [facility] Work Phone: Comment on above: Expected: 08/19/2021 , Expires: 08/20/2021 Start: 08-19-2021 End: 08-20-2021 Comprehensive metabolic 2000 panel - Serum or Plasma COMP METABOLIC PANEL Lab STAT Malignant neoplasm of right kidney, except renal pelvis (HCC) Expected: 08/19/2021, Expires: 08/20/2021 [facility] Work Phone: Comment on above: Expected: 08/19/2021 , Expires: 08/20/2021 Start: 08-19-2021 End: 08-20-2021 Lactate dehydrogenase [Enzymatic activity/volume] in Serum or Plasma LD LACTATE DEHYDRO Lab STAT Malignant neoplasm of right kidney, except renal pelvis (HCC) Expected: 08/19/2021, Expires: 08/20/2021 [facility] Work Phone: Comment on above: Expected: 08/19/2021 , Expires: 08/20/2021 Start: 08-19-2021 End: 08-20-2021 Magnesium [Mass/volume] in Serum or Plasma MAGNESIUM BLD Lab STAT Malignant neoplasm of right kidney, except renal pelvis (HCC) Expected: 08/19/2021, Expires: 08/20/2021 [facility] Work Phone: Comment on above: Expected: 08/19/2021 , Expires: 08/20/2021 Start: 08-19-2021 End: 08-20-2021 Phosphate [Mass/volume] in Serum or Plasma PHOSPHORUS INORGANIC Lab STAT Malignant neoplasm of right kidney, except renal pelvis (HCC) Expected: 08/19/2021, Expires: 08/20/2021 [facility] Work Phone: Comment on above: Expected: 08/19/2021 , Expires: 08/20/2021 Start: 08-19-2021 End: 08-20-2021 PT panel - Platelet poor plasma by Coagulation assay PROTHROMBIN TIME/PT Lab STAT Malignant neoplasm of right kidney, except renal pelvis (HCC) Expected: 08/19/2021, Expires: 08/20/2021 [facility] Work Phone: Comment on above: Expected: 08/19/2021 , Expires: 08/20/2021 Start: 08-19-2021 End: 08-20-2021 Urate [Mass/volume] in Serum or Plasma URIC ACID BLOOD Lab STAT Malignant neoplasm of right kidney, except renal pelvis (HCC) Expected: 08/19/2021, Expires: 08/20/2021 [facility] Work Phone: Comment on above: Expected: 08/19/2021 , Expires: 08/20/2021 Start: 08-07-2021 End: 08-08-2021 aPTT in Platelet poor plasma by Coagulation assay ACTIVATED PTT Lab STAT Malignant neoplasm of right kidney, except renal pelvis (HCC) Expected: 08/07/2021, Expires: 08/08/2021 [facility] Work Phone: Comment on above: Expected: 08/07/2021 , Expires: 08/08/2021 Start: 08-07-2021 End: 08-08-2021 CBC W Auto Differential panel - Blood CBC + DIFF Lab STAT Malignant neoplasm of right kidney, except renal pelvis (HCC) Expected: 08/07/2021, Expires: 08/08/2021 [facility] Work Phone: Comment on above: Expected: 08/07/2021 , Expires: 08/08/2021 Start: 08-07-2021 End: 08-08-2021 CLINICAL TRIAL DRAW CLINICAL TRIAL DRAW Lab STAT Malignant neoplasm of right kidney, except renal pelvis (HCC) Expected: 08/07/2021, Expires: 08/08/2021 [facility] Work Phone: Comment on above: Expected: 08/07/2021 , Expires: 08/08/2021 Start: 08-07-2021 End: 08-08-2021 Comprehensive metabolic 2000 panel - Serum or Plasma COMP METABOLIC PANEL Lab STAT Malignant neoplasm of right kidney, except renal pelvis (HCC) Expected: 08/07/2021, Expires: 08/08/2021 [facility] Work Phone: Comment on above: Expected: 08/07/2021 , Expires: 08/08/2021 Start: 08-07-2021 End: 08-08-2021 Lactate dehydrogenase [Enzymatic activity/volume] in Serum or Plasma LD LACTATE DEHYDRO Lab STAT Malignant neoplasm of right kidney, except renal pelvis (HCC) Expected: 08/07/2021, Expires: 08/08/2021 [facility] Work Phone: Comment on above: Expected: 08/07/2021 , Expires: 08/08/2021 Start: 08-07-2021 End: 08-08-2021 Magnesium [Mass/volume] in Serum or Plasma MAGNESIUM BLD Lab STAT Malignant neoplasm of right kidney, except renal pelvis (HCC) Expected: 08/07/2021, Expires: 08/08/2021 [facility] Work Phone: Comment on above: Expected: 08/07/2021 , Expires: 08/08/2021 Start: 08-07-2021 End: 08-08-2021 Phosphate [Mass/volume] in Serum or Plasma PHOSPHORUS INORGANIC Lab STAT Malignant neoplasm of right kidney, except renal pelvis (HCC) Expected: 08/07/2021, Expires: 08/08/2021 [facility] Work Phone: Comment on above: Expected: 08/07/2021 , Expires: 08/08/2021 Start: 08-07-2021 End: 08-08-2021 PT panel - Platelet poor plasma by Coagulation assay PROTHROMBIN TIME/PT Lab STAT Malignant neoplasm of right kidney, except renal pelvis (HCC) Expected: 08/07/2021, Expires: 08/08/2021 [facility] Work Phone: Comment on above: Expected: 08/07/2021 , Expires: 08/08/2021 Start: 08-07-2021 End: 08-08-2021 Urate [Mass/volume] in Serum or Plasma URIC ACID BLOOD Lab STAT Malignant neoplasm of right kidney, except renal pelvis (HCC) Expected: 08/07/2021, Expires: 08/08/2021 [facility] Work Phone: Comment on above: Expected: 08/07/2021 , Expires: 08/08/2021 Start: 08-05-2021 End: 08-06-2021 aPTT in Platelet poor plasma by Coagulation assay ACTIVATED PTT Lab STAT Malignant neoplasm of right kidney, except renal pelvis (HCC) Expected: 08/05/2021, Expires: 08/06/2021 [facility] Work Phone: Comment on above: Expected: 08/05/2021 , Expires: 08/06/2021 Start: 08-05-2021 End: 08-06-2021 CBC W Auto Differential panel - Blood CBC + DIFF Lab STAT Malignant neoplasm of right kidney, except renal pelvis (HCC) Expected: 08/05/2021, Expires: 08/06/2021 [facility] Work Phone: Comment on above: Expected: 08/05/2021 , Expires: 08/06/2021 Start: 08-05-2021 End: 08-06-2021 Comprehensive metabolic 2000 panel - Serum or Plasma COMP METABOLIC PANEL Lab STAT Malignant neoplasm of right kidney, except renal pelvis (HCC) Expected: 08/05/2021, Expires: 08/06/2021 [facility] Work Phone: Comment on above: Expected: 08/05/2021 , Expires: 08/06/2021 Start: 08-05-2021 End: 08-06-2021 Lactate dehydrogenase [Enzymatic activity/volume] in Serum or Plasma LD LACTATE DEHYDRO Lab STAT Malignant neoplasm of right kidney, except renal pelvis (HCC) Expected: 08/05/2021, Expires: 08/06/2021 [facility] Work Phone: Comment on above: Expected: 08/05/2021 , Expires: 08/06/2021 Start: 08-05-2021 End: 08-06-2021 Magnesium [Mass/volume] in Serum or Plasma MAGNESIUM BLD Lab STAT Malignant neoplasm of right kidney, except renal pelvis (HCC) Expected: 08/05/2021, Expires: 08/06/2021 [facility] Work Phone: Comment on above: Expected: 08/05/2021 , Expires: 08/06/2021 Start: 08-05-2021 End: 08-06-2021 Phosphate [Mass/volume] in Serum or Plasma PHOSPHORUS INORGANIC Lab STAT Malignant neoplasm of right kidney, except renal pelvis (HCC) Expected: 08/05/2021, Expires: 08/06/2021 [facility] Work Phone: Comment on above: Expected: 08/05/2021 , Expires: 08/06/2021 Start: 08-05-2021 End: 08-06-2021 PT panel - Platelet poor plasma by Coagulation assay PROTHROMBIN TIME/PT Lab STAT Malignant neoplasm of right kidney, except renal pelvis (HCC) Expected: 08/05/2021, Expires: 08/06/2021 [facility] Work Phone: Comment on above: Expected: 08/05/2021 , Expires: 08/06/2021 Start: 08-05-2021 End: 08-06-2021 T3 FREE BLD T3 FREE BLD Lab STAT Malignant neoplasm of right kidney, except renal pelvis (HCC) Expected: 08/05/2021, Expires: 08/06/2021 [facility] Work Phone: Comment on above: Expected: 08/05/2021 , Expires: 08/06/2021 Start: 08-05-2021 End: 08-06-2021 T4 FREE/FREE THYROX T4 FREE/FREE THYROX Lab STAT Malignant neoplasm of right kidney, except renal pelvis (HCC) Expected: 08/05/2021, Expires: 08/06/2021 [facility] Work Phone: Comment on above: Expected: 08/05/2021 , Expires: 08/06/2021 Start: 08-05-2021 End: 08-06-2021 Thyrotropin [Units/volume] in Serum or Plasma TSH BLD Lab STAT Malignant neoplasm of right kidney, except renal pelvis (HCC) Expected: 08/05/2021, Expires: 08/06/2021 [facility] Work Phone: Comment on above: Expected: 08/05/2021 , Expires: 08/06/2021 Start: 08-05-2021 End: 08-06-2021 Urate [Mass/volume] in Serum or Plasma URIC ACID BLOOD Lab STAT Malignant neoplasm of right kidney, except renal pelvis (HCC) Expected: 08/05/2021, Expires: 08/06/2021 [facility] Work Phone: Comment on above: Expected: 08/05/2021 , Expires: 08/06/2021 Start: 07-31-2021 End: 09-30-2021 CBC W Auto Differential panel - Blood CBC + DIFF Lab Routine Renal cell carcinoma, unspecified laterality (HCC) Expected: 07/31/2021, Expires: 09/30/2021 [facility] Work Phone: Comment on above: Expected: 07/31/2021 , Expires: 09/30/2021 Start: 07-31-2021 End: 09-30-2021 Comprehensive metabolic 2000 panel - Serum or Plasma COMP METABOLIC PANEL Lab Routine Renal cell carcinoma, unspecified laterality (HCC) Expected: 07/31/2021, Expires: 09/30/2021 [facility] Work Phone: Comment on above: Expected: 07/31/2021 , Expires: 09/30/2021 Start: 07-24-2021 End: 07-25-2021 aPTT in Platelet poor plasma by Coagulation assay ACTIVATED PTT Lab STAT Malignant neoplasm of right kidney, except renal pelvis (HCC) Expected: 07/24/2021, Expires: 07/25/2021 [facility] Work Phone: Comment on above: Expected: 07/24/2021 , Expires: 07/25/2021 Start: 07-24-2021 End: 07-25-2021 CBC W Auto Differential panel - Blood CBC + DIFF Lab STAT Malignant neoplasm of right kidney, except renal pelvis (HCC) Expected: 07/24/2021, Expires: 07/25/2021 [facility] Work Phone: Comment on above: Expected: 07/24/2021 , Expires: 07/25/2021 Start: 07-24-2021 End: 07-25-2021 CLINICAL TRIAL DRAW CLINICAL TRIAL DRAW Lab STAT Malignant neoplasm of right kidney, except renal pelvis (HCC) Expected: 07/24/2021, Expires: 07/25/2021 [facility] Work Phone: Comment on above: Expected: 07/24/2021 , Expires: 07/25/2021 Start: 07-24-2021 End: 07-25-2021 Comprehensive metabolic 2000 panel - Serum or Plasma COMP METABOLIC PANEL Lab STAT Malignant neoplasm of right kidney, except renal pelvis (HCC) Expected: 07/24/2021, Expires: 07/25/2021 [facility] Work Phone: Comment on above: Expected: 07/24/2021 , Expires: 07/25/2021 Start: 07-24-2021 End: 07-25-2021 Lactate dehydrogenase [Enzymatic activity/volume] in Serum or Plasma LD LACTATE DEHYDRO Lab STAT Malignant neoplasm of right kidney, except renal pelvis (HCC) Expected: 07/24/2021, Expires: 07/25/2021 [facility] Work Phone: Comment on above: Expected: 07/24/2021 , Expires: 07/25/2021 Start: 07-24-2021 End: 07-25-2021 Magnesium [Mass/volume] in Serum or Plasma MAGNESIUM BLD Lab STAT Malignant neoplasm of right kidney, except renal pelvis (HCC) Expected: 07/24/2021, Expires: 07/25/2021 [facility] Work Phone: Comment on above: Expected: 07/24/2021 , Expires: 07/25/2021 Start: 07-24-2021 End: 07-25-2021 Phosphate [Mass/volume] in Serum or Plasma PHOSPHORUS INORGANIC Lab STAT Malignant neoplasm of right kidney, except renal pelvis (HCC) Expected: 07/24/2021, Expires: 07/25/2021 [facility] Work Phone: Comment on above: Expected: 07/24/2021 , Expires: 07/25/2021 Start: 07-24-2021 End: 07-25-2021 PT panel - Platelet poor plasma by Coagulation assay PROTHROMBIN TIME/PT Lab STAT Malignant neoplasm of right kidney, except renal pelvis (HCC) Expected: 07/24/2021, Expires: 07/25/2021 [facility] Work Phone: Comment on above: Expected: 07/24/2021 , Expires: 07/25/2021 Start: 07-24-2021 End: 07-25-2021 Urate [Mass/volume] in Serum or Plasma URIC ACID BLOOD Lab STAT Malignant neoplasm of right kidney, except renal pelvis (HCC) Expected: 07/24/2021, Expires: 07/25/2021 [facility] Work Phone: Comment on above: Expected: 07/24/2021 , Expires: 07/25/2021 Start: 07-15-2021 End: 07-16-2021 aPTT in Platelet poor plasma by Coagulation assay ACTIVATED PTT Lab STAT Malignant neoplasm of right kidney, except renal pelvis (HCC) Expected: 07/15/2021, Expires: 07/16/2021 [facility] Work Phone: Comment on above: Expected: 07/15/2021 , Expires: 07/16/2021 Start: 07-15-2021 End: 07-16-2021 CBC W Auto Differential panel - Blood CBC + DIFF Lab STAT Malignant neoplasm of right kidney, except renal pelvis (HCC) Expected: 07/15/2021, Expires: 07/16/2021 [facility] Work Phone: Comment on above: Expected: 07/15/2021 , Expires: 07/16/2021 Start: 07-15-2021 End: 07-16-2021 Comprehensive metabolic 2000 panel - Serum or Plasma COMP METABOLIC PANEL Lab STAT Malignant neoplasm of right kidney, except renal pelvis (HCC) Expected: 07/15/2021, Expires: 07/16/2021 [facility] Work Phone: Comment on above: Expected: 07/15/2021 , Expires: 07/16/2021 Start: 07-15-2021 End: 07-16-2021 Lactate dehydrogenase [Enzymatic activity/volume] in Serum or Plasma LD LACTATE DEHYDRO Lab STAT Malignant neoplasm of right kidney, except renal pelvis (HCC) Expected: 07/15/2021, Expires: 07/16/2021 [facility] Work Phone: Comment on above: Expected: 07/15/2021 , Expires: 07/16/2021 Start: 07-15-2021 End: 07-16-2021 Magnesium [Mass/volume] in Serum or Plasma MAGNESIUM BLD Lab STAT Malignant neoplasm of right kidney, except renal pelvis (HCC) Expected: 07/15/2021, Expires: 07/16/2021 [facility] Work Phone: Comment on above: Expected: 07/15/2021 , Expires: 07/16/2021 Start: 07-15-2021 End: 07-16-2021 Phosphate [Mass/volume] in Serum or Plasma PHOSPHORUS INORGANIC Lab STAT Malignant neoplasm of right kidney, except renal pelvis (HCC) Expected: 07/15/2021, Expires: 07/16/2021 [facility] Work Phone: Comment on above: Expected: 07/15/2021 , Expires: 07/16/2021 Start: 07-15-2021 End: 07-16-2021 PT panel - Platelet poor plasma by Coagulation assay PROTHROMBIN TIME/PT Lab STAT Malignant neoplasm of right kidney, except renal pelvis (HCC) Expected: 07/15/2021, Expires: 07/16/2021 [facility] Work Phone: Comment on above: Expected: 07/15/2021 , Expires: 07/16/2021 Start: 07-15-2021 End: 07-16-2021 T3 FREE BLD T3 FREE BLD Lab STAT Malignant neoplasm of right kidney, except renal pelvis (HCC) Expected: 07/15/2021, Expires: 07/16/2021 [facility] Work Phone: Comment on above: Expected: 07/15/2021 , Expires: 07/16/2021 Start: 07-15-2021 End: 07-16-2021 T4 FREE/FREE THYROX T4 FREE/FREE THYROX Lab STAT Malignant neoplasm of right kidney, except renal pelvis (HCC) Expected: 07/15/2021, Expires: 07/16/2021 [facility] Work Phone: Comment on above: Expected: 07/15/2021 , Expires: 07/16/2021 Start: 07-15-2021 End: 07-16-2021 Thyrotropin [Units/volume] in Serum or Plasma TSH BLD Lab STAT Malignant neoplasm of right kidney, except renal pelvis (HCC) Expected: 07/15/2021, Expires: 07/16/2021 [facility] Work Phone: Comment on above: Expected: 07/15/2021 , Expires: 07/16/2021 Start: 07-15-2021 End: 07-16-2021 Urate [Mass/volume] in Serum or Plasma URIC ACID BLOOD Lab STAT Malignant neoplasm of right kidney, except renal pelvis (HCC) Expected: 07/15/2021, Expires: 07/16/2021 [facility] Work Phone: Comment on above: Expected: 07/15/2021 , Expires: 07/16/2021 Start: 06-24-2021 End: 08-24-2021 PT panel - Platelet poor plasma by Coagulation assay PROTHROMBIN TIME/PT Lab STAT Mass of right chest wall Expected: 06/24/2021, Expires: 08/24/2021 [facility] Work Phone: Comment on above: Expected: 06/24/2021 , Expires: 08/24/2021 Start: 06-23-2021 End: 07-23-2022 Bone &/joint imaging whole body NM BONE WHOLE BODY Radiology Routine Malignant neoplasm of kidney, unspecified laterality (HCC) Malignant neoplasm of kidney excluding renal pelvis, unspecified laterality (HCC) Expected: 06/23/2021 (Approximate), Expires: 07/23/2022 [facility] Work Phone: Comment on above: Expected: 06/23/2021 (Approximate), Expires: 07/23/2022 Start: 06-23-2021 End: 07-23-2022 Ct abdomen & pelvis w/contrast material CT ABD/PEL W IVCON Radiology Routine Malignant neoplasm of kidney, unspecified laterality (HCC) Malignant neoplasm of kidney excluding renal pelvis, unspecified laterality (HCC) Expected: 06/23/2021 (Approximate), Expires: 07/23/2022 [facility] Work Phone: Comment on above: Expected: 06/23/2021 (Approximate), Expires: 07/23/2022 Start: 06-23-2021 End: 07-23-2022 Ct abdomen & pelvis w/o contrast material CT ABD/PEL WO IVCON Radiology Routine Malignant neoplasm of kidney, unspecified laterality (HCC) Malignant neoplasm of kidney excluding renal pelvis, unspecified laterality (HCC) Expected: 06/23/2021, Expires: 07/23/2022 [facility] Work Phone: Comment on above: Expected: 06/23/2021 , Expires: 07/23/2022 Start: 05-21-2021 COVID-19 VACCINE (4 - Booster for Pfizer series) COVID-19 VACCINE (4 - Booster for Pfizer series) [facility] Start: 04-23-2021 COVID-19 VACCINE (4 - Booster for Pfizer series) COVID-19 VACCINE (4 - Booster for Pfizer series) [facility] Start: 04-15-2021 COVID-19 VACCINE (4 - Booster for Pfizer series) COVID-19 VACCINE (4 - Booster for Pfizer series) [facility] Start: 03-18-2021 COVID-19 VACCINE (4 - Booster for Pfizer series) COVID-19 VACCINE (4 - Booster for Pfizer series) [facility] Start: 03-08-2021 DEPRESSION ASSESSMENT DEPRESSION ASS ESSMENT [facility] Start: 11-19-2020 Colonoscopy COLONOSCOPY [facility] Start: 11-19-2020 COLORECTAL CANCER SCREENING COLORECTAL CANCER SCREENING [facility] Start: 11-19-2020 Screening for malign ant neoplasm of colon [facility] Start: 11-05-2020 Hepatitis B surface antibody level LDL CHOLESTEROL [facility] Start: 07-28-2019 FECAL OCCULT BLOOD FECAL OCCULT BLOO D [facility] Start: 07-28-2019 Screening for malign ant neoplasm of colon Fecal Occult Blood [facility] Start: 03-16-2017 Adult depression scr eening assessment DEPRESSION SCREENING [facility] Start: 01-01-2014 Measurement of occul t blood in single stool specimen FIT [facility] Start: 01-01-2014 Screening for malign ant neoplasm of colon CRC Screening [facility] Start: 01-01-2014 Shingles (RZV) Vacci ne (1 of 2) Shingles (RZV) Vaccine (1 of 2) [facility] Start: 01-01-2014 SHINGRIX VACCINE (1 of 2) ROSS GRIX VACCINE (1 of 2) [facility] Start: 01-01-2009 COLOGUARD (FIT-DNA) COLOGUARD (FIT-D NA) [facility] Start: 01-01-[address] COLONOGRAPHY [facility] Start: 01-01-2009 Screening for malign ant neoplasm of colon [facility] Start: 01-01-[address] [facility] Start: 01-01-1999 Lipid panel Cholesterol [facility] Start: 01-01-1983 ONE PNEUMOVAX PRIOR TO AGE 65 ONE PNEUMOVAX PRIOR TO AGE 65 [facility] Start: 01-01-1983 SHINGRIX VACCINE (1 of 2) ROSS GRIX VACCINE (1 of 2) [facility] Start: 01-01-1982 Anxiety Screening Anxiety Screening [facility] Start: 01-01-1982 BP CONTROLLED (<130/80) BP CON TROLLED (<130/80) [facility] Start: 01-01-1982 Depression Screening Depression Scre ening [facility] Start: 01-01-1982 Hepatitis C screening Hepatitis C An tibody [facility] Start: 01-01-1982 Tetanus + diphtheria + acellular pertussis vaccine (product) Tdap Booster [facility] Start: 01-01-1979 HIV screening HIV Test [facility] Start: 01-01-1970 PNEUMOCOCCAL (1 - PCV) PNEUMOCOCCAL (1 - PCV) [facility] Start: 1965 COVID-19 Vaccine (#1) COVID-19 Vacci ne (#1) [facility] Start: 1965 HEPATITIS B (1 of 3 - 3-dose series) HEPATITIS B (1 of 3 - 3-dose series) [facility] Start: 1965 Screening for malign ant neoplasm of colon Colonoscopy [facility] Basic metabolic 2007 panel with ionized calcium - Serum or Plasma [facility] Basic metabolic 2008 panel with ionized calcium - Serum or Plasma [facility] Biopsy bone trocar/n eedle superficial IMAGING GUIDED BIOPSY RIB/BONY PELVIS/STERNUM/SPINOUS PROCESS Radiology Routine Malignant neoplasm of kidney, unspecified laterality (HCC) Malignant neoplasm of kidney excluding renal pelvis, unspecified laterality (HCC) Ordered: 06/23/2021 [facility] Work Phone: Comment on above: Ordered: 06/23/2021 Bone &/joint imaging whole body NM BONE WHOLE BODY Radiology Routine Renal cell carcinoma of right kidney (HCC) Ordered: 03/11/2022 [facility] Work Phone: Comment on above: Ordered: 03/11/2022 CBC W Auto Different ial panel - Blood [facility] CBC W Auto Different ial panel - Blood [facility] CBC W Auto Different ial panel - Blood [facility] CLINICAL TRIAL DRAW CLINICAL TRI AL DRAW Lab STAT Malignant neoplasm of right kidney, except renal pelvis (HCC) 08/08/2021 9:04 AM EDT [facility] Work Phone: End: 08-27-2022 Ct abdomen & pelvis w/contrast material CT ABD/PEL W IVCON Radiology Routine Malignant neoplasm of right kidney, except renal pelvis (HCC) Malignant neoplasm of kidney excluding renal pelvis, unspecified laterality (HCC) 1 Occurrences starting 07/28/2021 until 08/27/2022 [facility] Work Phone: Comment on above: 1 Occurrences starti ng 07/28/2021 until 08/27/2022 End: 09-19-2022 Ct abdomen & pelvis w/contrast material CT ABD/PEL W IVCON Radiology Routine Malignant neoplasm of right kidney, except renal pelvis (HCC) Malignant neoplasm of kidney excluding renal pelvis, unspecified laterality (HCC) 1 Occurrences starting 08/21/2021 until 09/19/2022 [facility] Work Phone: Comment on above: 1 Occurrences starti ng 08/21/2021 until 09/19/2022 Ct abdomen & pelvis w/contrast material CT ABD/PEL W IVCON Radiology Routine Renal cell carcinoma of right kidney (HCC) Ordered: 03/11/2022 [facility] Work Phone: Comment on above: Ordered: 03/11/2022 CT Abdomen and Pelvi s WO contrast [facility] CT CHEST W IVCON CT CHEST W IVCO N Radiology Routine Renal cell carcinoma of right kidney (HCC) Ordered: 03/11/2022 [facility] Work Phone: Comment on above: Ordered: 03/11/2022 CT Chest WO contrast [facility] End: 09-19-2022 Ct thorax w/contrast material CT CHEST W IVCON Radiology Routine Malignant neoplasm of right kidney, except renal pelvis (HCC) Malignant neoplasm of kidney excluding renal pelvis, unspecified laterality (HCC) 1 Occurrences starting 08/21/2021 until 09/19/2022 [facility] Work Phone: Comment on above: 1 Occurrences starti ng 08/21/2021 until 09/19/2022 End: 07-11-2022 ECG COMPLETE ECG COMPLETE ECG Routine Malignant neoplasm of right kidney, except renal pelvis (HCC) 1 Occurrences starting 07/11/2021 until 07/11/2022 [facility] Work Phone: Comment on above: 1 Occurrences starti ng 07/11/2021 until 07/11/2022 ECG COMPLETE [facility] End: 12-30-2022 ECG COMPLETE ECG COMPLETE ECG Routine Renal cell carcinoma of right kidney (HCC) 1 Occurrences starting 12/30/2021 until 12/30/2022 [facility] Work Phone: Comment on above: 1 Occurrences starti ng 12/30/2021 until 12/30/2022 End: 02-16-2023 ECHO LIMITED ECHO LIMITED Cardiology Routine Acute decompensated heart failure (HCC) Paroxysmal atrial fibrillation (HCC) 1 Occurrences starting 02/16/2022 until 02/16/2023 [facility] Work Phone: Comment on above: 1 Occurrences starti ng 02/16/2022 until 02/16/2023 End: 07-11-2022 Echocardiography ECHO Cardiology Routine Malignant neoplasm of right kidney, except renal pelvis (HCC) 1 Occurrences starting 07/11/2021 until 07/11/2022 [facility] Work Phone: Comment on above: 1 Occurrences starti ng 07/11/2021 until 07/11/2022 Elastase.pancreatic [Presence] in Stool [facility] INR in Blood by Coagulation assay [facility] INR in Blood by Coagulation assay [facility] INR in Blood by Coagulation assay [facility] Lactate dehydrogenas e measurement [facility] Magnesium [Mass/volu me] in Serum or Plasma [facility] Magnesium measurement [facility] End: 09-07-2022 Mri abdomen w/o & w/contrast material MRI KIDNEY WO/W IVCON Radiology Routine Other specified disorders of kidney and ureter 1 Occurrences starting 08/08/2021 until 09/07/2022 [facility] Work Phone: Comment on above: 1 Occurrences starti ng 08/08/2021 until 09/07/2022 End: 08-13-2022 Mri brain brain stem w/o w/contrast material MRI BRAIN WO/W IVCON Radiology Routine Malignant neoplasm of kidney excluding renal pelvis, unspecified laterality (HCC) Renal cell carcinoma, unspecified laterality (HCC) 1 Occurrences starting 07/14/2021 until 08/13/2022 [facility] Work Phone: Comment on above: 1 Occurrences starti ng 07/14/2021 until 08/13/2022 NM Heart Views W str ess and W radionuclide IV [facility] End: 07-22-2022 OUTSIDE LISA OUTSIDE LISA Cardiology Routine Nonrheumatic mitral valve regurgitation 1 Occurrences starting 07/22/2021 until 07/22/2022 [facility] Work Phone: Comment on above: 1 Occurrences starti ng 07/22/2021 until 07/22/2022 Ova and parasites identified in Unspecified specimen by Light microscopy [facility] Patient Education [facility] Work Phone: Patient referral [facility] Work Phone: End: 08-19-2022 Polysomnogram POLYSOMNOGRAM (PSG) Procedures Routine Disturbance in sleep behavior 1 Occurrences starting 08/19/2021 until 08/19/2022 [facility] Work Phone: Comment on above: 1 Occurrences starti ng 08/19/2021 until 08/19/2022 End: 01-29-2023 Radiologic exam chest 2 views XR CHEST 2V FRONTAL/LAT Radiology Routine Renal cell carcinoma of right kidney (HCC) 1 Occurrences starting 12/30/2021 until 01/29/2023 [facility] Work Phone: Comment on above: 1 Occurrences starti ng 12/30/2021 until 01/29/2023 Respiratory Panel (PCR) Respirat ory Panel (PCR) [facility] Respiratory pathogen s DNA and RNA 12b panel - Unspecified specimen by SANDOVAL with probe detection [facility] T3 FREE BLD T3 FREE BLD Lab STAT Malignant neoplasm of right kidney, except renal pelvis (HCC) 07/21/2021 7:53 AM EDT [facility] Work Phone: T4 FREE/FREE THYROX T4 FREE/FREE THYROX Lab STAT Malignant neoplasm of right kidney, except renal pelvis (HCC) 07/21/2021 7:53 AM EDT [facility] Work Phone: Thyroid stimulating hormone measurement [facility] Troponin I measurement [facility] Work Phone: Troponin I measurement [facility] URINALYSIS, REFLEX MICROSCOPIC URINALYSIS, REFLEX MICROSCOPIC Lab Routine Screening for genitourinary condition Ordered: 01/23/2022 [facility] Work Phone: Comment on above: Ordered: 01/23/2022 [facility] Work Phone: [facility] Immunizations Immunization Date Immunization Notes Care Provider [facility] 01-21-2021 Pfizer-BioNTech COVID-19 Vacc 30 MCG/0.3ML Intramuscular Suspension Daksha Turner Work Phone: [facility] 06-20-2020 Covid (Pfizer) Dr. Janusz Turner Work Phone: [facility] 06-15-2020 Pfizer-BioNTech COVID-19 Vacc 30 MCG/0.3ML Intramuscular Suspension Daksha Turner Work Phone: [facility] 05-25-2020 Pfizer-BioNTech COVID-19 Vacc 30 MCG/0.3ML Intramuscular Suspension Daksha Turner Work Phone: [facility] 07-25-2018 tetanus toxoid, reduced diphtheria toxoid, and acellular pertussis vaccine, adsorbed Dawit Urbina MD Work Phone: [facility] 12-06-2013 influenza, seasonal, injectable Dawit Urbina MD Work Phone: [facility] 12-06-2013 influenza virus vaccine, unspecified formulation Noreen Morejon Work Phone: [facility] Date of Pneumonia Vaccine: Family [facility] Work Phone: Payers Date Payer Category Payer Medicare [id number] 2023 Self-pay [id number] 2023 Self-pay [id number] 2023 Medicare [id number] 2020 Unknown [employer] [id number] 2020-Present [phone] [place] [address] [id number] [id number]. [id number] 2018 Unknown [id number] 1.2.840.812296.1.13.159.2. [id number] 2016 Unknown [id number] 2015 Unknown [employer] [id number] 2015-Present [phone] [place] [address] [id number] 1.2.840.337429.1.13.159.2. 7.3.386577.315 2008 Unknown [facility] [employer] [id number] 2008-Present [phone] [address] [place] [address] [id number] 1.2.840.645242.1.13.159.2. 7.3.958390.315 2008 Worker's Compensation [employer] - [employer]ED [employer] [id number] 2008-Present [phone] [place] [address] Worker's Comp 1.2.840.141687.1.13.56.2.7 .3.216591.315 2006 Unknown [id number] 1964 Unknown [id number] 2.840.1.581267.3.579.2. 1069 1964 Unknown [id number] 2.840.1.531994.3.579.2. 1069 1964 Unknown [id number] 2.840.1.392198.3.579.2. 356 1964 Unknown [id number] 2.840.1.214135.3.579.2. 356 Medicare [id number] Unknown [id number] 2.840.1.576871.3.579.2. 277 Unknown [id number] 2.840.1.791484.3.579.2. 462 Unknown [id number] 2.840.1.333812.3.579.2. 462 Unknown [id number] 2.16840.1.453003.3.579.2. 462 Unknown [id number] 2.16840.1.688250.3.579.2. 462 Unknown [id number] 2.840.1.340949.3.579.2. 462 Unknown [id number] 2.16.840.1.233059.3.579.2. 462 Unknown [id number] 2.16.840.1.578268.3.579.2. 462 Unknown [id number] 2.16.840.1.391942.3.579.2. 462 Unknown [id number] 2.16.840.1.831994.3.579.2. 462 Unknown [id number] 2.16.840.1.421266.3.579.2. 462 Unknown [id number] 2.16.840.1.018460.3.579.2. 462 Unknown [id number] 2.840.1.411977.3.579.2. 462 Unknown [id number] 2.840.1.593916.3.579.2. 462 Unknown [id number] 2.840.1.339084.3.579.2. 462 Unknown [id number] 2.840.1.831924.3.579.2. 462 Unknown [id number] 2..840.1.068919.3.579.2. 462 Unknown [id number] 2.16840.1.788175.3.579.2. 462 Unknown [id number] 2.16.840.1.290163.3.579.2. 462 Unknown [id number] 2..840.1.703075.3.579.2. 462 Unknown [id number] 2.16.840.1.436470.3.579.2. 462 Unknown [id number] 2.16.840.1.167301.3.579.2. 462 Unknown [id number] 2.16.840.1.455295.3.579.2. 462 Unknown [id number] 2.16.840.1.476651.3.579.2. 462 Unknown [id number] 2.16840.1.959457.3.579.2. 462 Social History Date Type Detail Facility Start: 06-19-2021 End: 10-09-2021 Tobacco smoking status NHIS Never smoker [facility] Start: 1965 Sex Assigned At Male S [facility] Start: 08-19-2021 End: 10-02-2024 Tobacco smoking status NHIS Smokes tobacco daily [facility] Work Phone: History of tobacco use Cigarette Smoker [facility] Work Phone: Start: 06-20-2021 End: 12-09-2021 Alcohol intake Current drinker of alcohol (finding) [facility] Start: 1965 Sex Assigned At Not on file C [facility] Start: 06-10-2021 End: 01-19-2022 Exposure to SARS-CoV-2 (event) Not sure [facility] Start: 07-01-2021 End: 11-28-2021 Exposure to SARS-CoV-2 (event) Unable to assess [facility] Start: 06-04-2019 End: 12-15-2022 Tobacco smoking status NHIS Unknown if ever smoked [facility] Work Phone: Start: 06-04-2019 Spouse/ Signif icant Other [facility] Start: 06-04-2019 Secondhand [facility] Start: 08-19-2021 End: 12-09-2021 Tobacco Comment former cigarettes, now cigars 3 per day [facility] Start: 08-19-2021 End: 10-09-2021 Cigarettes smoked current (pack per day) - Reported 0.3 [facility] Start: 08-19-2021 End: 02-16-2022 Tobacco use and exposure Smokeless tobacco non-user [facility] Start: 10-27-2021 History SDOH Alcohol Comment 3 times a week per pt 10/27/2021 [facility] History of tobacco use Cigar Smoker [facility] Start: 02-16-2022 Tobacco smoking status NHIS Ex-smoker [facility] History of tobacco use Current smoker [facility] Start: 02-16-2022 End: 02-17-2022 Alcohol intake Ex-drinker (finding) [facility] Start: 02-16-2022 Tobacco Comment About a month ago smoked cigars About 3-4 years from last time smoked cigarettes [facility] Adult Depression Screening Assessment 1 [facility] Start: 06-06-2024 End: 06-22-2024 Sex Male (finding) [facility] NEGATED: Highlighted rowStart: NINF History of tobacco use Passive smoker [facility] Goals Date Patient Goal Desired Activity /State Functional Status Date Assessment Result Facility 12-17-2022 Functional status Ambulates [facility] Work Phone: 06-29-2022 Functional status Ambulates [facility] Work Phone: 05-20-2022 Functional status Activity Ability Indepe [facility] Work Phone: 05-20-2022 Functional status Patient Activity Bedres [facility] Work Phone: 04-16-2022 Functional status Activity Ability Indepe [facility] Work Phone: 04-16-2022 Functional status Ambulates;Up ad haley [facility] Work Phone: 12-09-2021 Functional status Ambulates [facility] Work Phone: 12-08-2021 Functional status None [facility] Work Phone: Functional observable [facility] Mental Status Date Assessment Result Facility 12-17-2022 Cognitive function [facility] Work Phone: 06-29-2022 Cognitive function [facility] Work Phone: 06-27-2022 Cognitive function [facility] Work Phone: 05-20-2022 Cognitive function [facility] Work Phone: 04-16-2022 Cognitive function [facility] Work Phone: 02-06-2022 Cognitive functi ons [id number] [facility] 01-20-2022 Cognitive function Awake;Alert;A ppropriate;Foll ows Commands [facility] Work Phone: 12-09-2021 Cognitive function [facility] Work Phone: 12-07-2021 Cognitive function [facility] Work Phone: Clinical Notes 06-30-2004 to 06-20-2024 Note Date & Type Note Facility 06-20-2024 Evaluation note Diagnosis Onset Date Resolution 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 June 20 1:05pm Renal cell cancer chronic June 062024 1:05pm [facility] Work Phone: 1(848) 685-963004-15-2025 Evaluation note* Diagnosis Onset Date Resolution Status [...] 2024 12:55pm Hypertension inactive August 14 12:55pm [facility] Work Phone: 1(554) 873-220104-15-2025 Evaluation note* Diagnosis Onset Date Resolution Status [...] 2024 12:55pm Hypertension inactive August 14 12:55pm [facility] Work Phone: 1(794) 586-732804-15-2025 Evaluation note* Diagnosis Onset Date Resolution Status [...] Hypertension inactive October 02, 2 025 2:24pm [facility] Work Phone: 1(840) 227-676804-15-2025 Evaluation note* Diagnosis Onset Date Resolution Status Admit Date Metastatic renal cell carcin paulette to bone chronic June 20, 2024 1:05pm Renal cell cancer chronic June 062024 1:05pm Chest pain acute August 14, 2024 12:55pm Hypertension acute August 14 12:55pm Renal failure acute August 14, 2 025 12:55pm Atrial fibrillation chronic August 14, 2024 12:55pm CHF (congestive heart failure) chron ic August 14, 2024 12:55pm Hypertension acute October 02, 2 025 2:24pm Hypotension acute October 02 2:24pm Renal failure acute October 02, 2024 2:24pm Atrial fibrillation chronic October 02, 2024 2:24pm CHF (congestive heart failure) chron ic October 02, 2024 2:24pm [facility] Work Phone: 1(249) 291-895604-09-2025 Radiology Diagnostic study note [facility] Imaging Services [address] [place] [address] CT Chest, Abd, Pel w/Contrast MR#: [id number] Acct: [id number] Name: YEFRI YANEZ Rep #: [id number] : [id number] M 59 From: Manuela Holman MD PCP: Dr. Daksha Turner MD Status: REG CLI Study:CT Chest, Abd, Pel w/Contrast Date of E xam: 06/13/24 Exam# [id number] Ordering Dr: Jose Botello MD PROCEDURE: CT [...] post right-sided nephrectomy. Reading Location: [facility] CC: Dr. Daksha Turner MD; Dr. 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 Jose Ramon Turner MD Status: ADM LISY Location: [place] [address] Reason for Visit Reason for Visit: Shortness of breath Subjective Subjective Mr. Yanez is a 57-year-old -Ugandan male who presented to the emergency department at [facility] on 12/15/2022 with worsening shortness of breath. Patient told the admitting physician that he is supposed to be wearing his oxygen all the time at home however he is only wearing it whenneeded. His oxygen was written for by Dr. Yanez and is to be 3 L cgmlym-rzd-dihar. He does have a history of systolic [...] is supposed to be on 3 L oelrvc-ncd-pstjd of oxygen. He tells me that he [...] (Auto) 87.2 H, Lymph % (Auto) 7.4L, [place]oulder % (Auto) 4.6, Eos % (Auto) 0.1, [...] 79.3 H, Lymph % (Auto) 12.9 L, [place] % (Auto) 6.0, Eos % (Auto) 0.9, [...] habitus or healthy appearing Constitutional Narrative: Obese, -Ugandan, male, lying in bed, appears comfortable and [...] post nephrectomy 02/06/2022--> Dr. Aravind Lopez at [facility] -Currently on immunotherapy -Patient has undergone radiation [...] in a.m. Charges/Coding Visit Charges Inpatient E&M: 94299 Subs Hosp L2 12/16/22 1238 <Electronically signed by Carol Chiu DO> Cosigner Signature (if applicable): CC: ~ Signed [facility] Work Phone: [phone]) 223-373010-10-2023 History and physical note Author Marquise Padilla [facility] December 15, 2022 7:30pm Note Date/Time December 15, 2022 4 :56pm [facility] Medical Records Department [address] [place] [address] H&P Exam - Hospitalist 12/15/22 1648 MR#: [id number] Acct: [id number] Name: YEFRI YANEZ Rep #:[id number] : 1965 57 From: Marquise ogden MD PCP: Dr. Jose Ramon Turner MD Status: ADM LISY Location: [place] [address] HPI - General General Date of Admission: [...] febrile. He has had similar issues in thepast, and he is currently on immunotherapy for [...] Hypertension Metastatic renal cell carcinoma to bone NICMO on CPAP Renal cell cancer Systolic CHF [...] 87.2 H, Lymph % (Auto) 7.4 L, Boulder % (Auto) 4.6, Eos % (Auto) 0.1, [...] DVT: Coumadin Charges/Coding Visit Charges Inpatient E&M: 95177 Init Hosp L3 12/15/221929 <Electronically signed by Marquise Padilla MD> Cosigner Signature (if applicable): CC: Dr. Jose Ramon Turner MD; Dr. Marqusie Padilla MD~ Signed [facility] Work Phone: [phone]) 185-613110-10-2023 Discharge summary Author Speedy Bass [facility] December 15, 2022 3:29pm Note Date/Time December 15, 2022 1 :13pm [facility] Medical Records Department [address] [place] [address] Emergency Department Summary 12/15/22 MR#: [id number] Acct: [id number] Name: YEFRI YANEZ Rep #:[id number] : 1965 57 From: Speedy Bass MD [...] that he has been told to use 28/09 now with 3 L so I am [...] 87.2 H Lymph % (Auto) 7.4 L Boulder % (Auto) 4.6 Eos % (Auto) 0.1 [...] Provider] - Disposition Disposition: Acute Care Hospital [facility] What to do if you have Problems For any increased pain, shortness of breath, bleeding, nausea or vomiting, chestpain, or any unexpected problems, contact your Primary Care Provider. Call [facility] ([phone]) or report to the closest Emergency Room. Call 911 if necessary. 12/15/22 1529 <Electronically signed by Speedy Bass MD> Cosigner Signature (if applicable): CC: Dr. Jose Ramon Turner MD ~ Signed [facility] Work Phone: [phone]) [phone] Chiu [facility] June 29, 2022 11:24am Note Date/Time June 29, 2022 11: 08am [facility] Medical Records Department [address] [place] [address] Discharge Summary 06/29/22 1105 MR#: [id number] Acct: [id number] Name: YEFRI YANEZ Rep #:[id number] : 1965 57 From: Carol Chiu DO PCP: Dr. Jose Ramon Turner MD Status: ADM IN Location: [place] [address] Providers Date of Admission: 06/28/22 Date of [...] distress and well nourished Constitutional Narrative: Obese, -Ugandan, upper middle-aged, male, lying in bed talking [...] (Auto) 91.8 H, Lymph % (Auto) 2.9L, Boulder % (Auto) 4.4, Eos % (Auto) 0.0, [...] Self Care Charges/Coding Visit Charges Inpatient E&M: 03163 Disch Hosp >30min 06/29/22 1124 <Electronically signed by Carol Chiu DO> Cosigner Signature (if applicable): CC: Dr. Jose Ramon Turner MD; Dr. Carol Chiu DO~ Signed [facility] Work Phone: [phone] 602-874204-23-[address] Wei [facility] June 28, 2022 3:27pm Note Date/Time June 28, 2022 2:1 6pm [facility] Medical Records Department [address] [place] [address] Progress Note 06/28/22 1412 MR#: [id number] Acct: [id number] Name: YEFRI YANEZ Rep #:[id number] : 1965 57 From: Pau Wei MD PCP: Dr. Jose Ramon Turner MD Status: ADM IN Location: [place] [address]- 1 Subjective Subjective Patient seen and examined. [...] 75.4 H, Lymph % (Auto) 16.8 L, Boulder % (Auto) 6.0, Eos % (Auto) 0.5, [...] (Auto) 92.0 H, Lymph % (Auto) 4.6L, Boulder % (Auto) 2.3, Eos % (Auto) 0.2, [...] is therapeutic. Charges/Coding Visit Charges Inpatient E&M: 53212 Subs Hosp L2 06/28/22 1527 <Electronically signed by Pau Wei MD> Pau Wei MD Cosigner Signature (if applicable): CC: ~ Signed [facility] Work Phone: [phone] 301-280204-23-[address] Hastings [facility] June 28, 2022 2:56am Note Date/Time June 27, 2022 11: 30pm [facility] Medical Records Department [address] [place] [address] Emergency Department Summary 06/27/22 MR#: [id number] Acct: [id number] Name: YEFRI YANEZ Rep #:[id number] : 1965 57 From: Livan Lin PCP: Dr. Jose Ramon Turner MD Status: ADM IN Location: [address] History of Present Illness Chief Complaint: Chest Pain Informant: patient, spouse/S.O. and family Narrative Narrative: 10-day history worsening dyspnea with exertion with mild chest discomfort. Significant other present. Diagnosed history of CHF had a heart cath at [facility] that was negative. History of paroxysmal A-fib [...] 75.4 H Lymph % (Auto) 16.8 L [place]oulder % (Auto) 6.0 Eos % (Auto) 0.5 [...] (Auto) Neut % (Auto) Lymph % (Auto) Boulder % (Auto) Eos % (Auto) Baso % [...] Atrial fibrillation Disposition Disposition: Acute Care Hospital [facility] Discharge Date/Time: 06/28/22 01:02 What to do if you have Problems For any increased pain, shortness of breath, bleeding, nausea or vomiting, chest pain, or any unexpected problems, contact your Primary Care Provider. Call [facility] ([phone]) or report to the closest Emergency Room. Call 911 if necessary. 06/28/22 0256 <Electronically signed by Livan Lin> Cosigner Signature (if applicable): CC: Dr. Jose Ramon Turner MD ~ Signed [facility] Work Phone: [phone] History and physical note Author Dr. Lu [facility] June 28, 2022 12:52am Note Date/Time June 28, 2022 12: 20am [facility] Medical Records Department [address] [place] [address] H&P Exam - Hospitalist 06/28/22 0007 MR#: [id number] Acct: [id number] Name: YEFRI YANEZ Rep #:[id number] : 1965 57 From: Estelita Lu MD PCP: Dr. Jose Ramon Turner MD Status: ADM IN Location: [place] [address] HPI - General General Date of Admission: 06/28/22 Date of Service: 06/28/22 Chief Complaint: Dyspnea, chest pain, wheezing, cough, recent incorrect Rx bumex. HPI Narrative The patient is a 57 y/o M w/ PMHx: Obesity, NIMCO on CPAP, PAF s/p prior cardioversion on coumadin, COPD, HTN, HLD, GERD, Metastatic renal CA s/p R nephrectomy, Tobacco use who presents to the [facility] ED on 06/27/22 with history of worsening [...] 75.4 H, Lymph % (Auto) 16.8 L, Boulder % (Auto) 6.0, Eos % (Auto) 0.5, [...] right-sided pleural-based mass. Cardiomegaly. Electronically Signed: Lul ePters MD at 23:42 EDT , Assessment & Plan Assessment/Plan (1) Dyspnea: PLAN: Plan The patient is a 57 y/o M w/ PMHx: Obesity, NIMCO on CPAP, PAF s/p prior cardioversion on coumadin, COPD, HTN, HLD, GERD, Metastatic renal CA s/p R nephrectomy, Tobacco use who presents to the [facility] ED on 06/27/22 with history of worsening [...] spine 12/2021, 02/06/2022 right radical nephrectomy at [facility], CT scan on 03/26/2022 showed no evidence [...] 75 minutes. Charges/Coding Visit Charges Inpatient E&M: 55901 Init Hosp L3 Procedures Hospitalists Procedures: 57601 Advncd Care Plan 30 Min 06/28/22 0052 <Electronically signed by Estelita Lu MD> Cosigner Signature (if applicable): CC: Dr. Estelita Lu MD; Dr. Jose Ramon Turner MD~ Signed [facility] Work Phone: [phone] Che [facility] May 20, 2022 9:40am Note Date/Time May 20, 2022 9:4 0am [facility] Medical Records Department [address] [place] [address] Discharge Summary 05/20/22 0939 MR#: [id number] Acct: [id number] Name: YEFRI YANEZ Rep #:[id number] : 1965 57 From: Jesús Che DO PCP: Dr. Jose Ramon Turner MD Status: ADM IN Location: [place] [address] Providers Date of Admission: 05/18/22 Primary Care [...] to been established with oncology at the [facility] and then at [facility] but due to insurance changes, he will be following up with [place] [facility]. DVT ppx: Coumadin therapeutic Discharge home [...] Qty: 60 0RF Referrals / Follow Up: [facility] [Provider Group] - 05/27/22 10:30 am *[facility] [Provider Group] - Within 1 Month Jose Ramon Turner MD [Primary Care Provider] - Within 2 Weeks Disposition Disposition (needs filled in before D/C Order can be placed): Home, Self Care Charges/Coding Visit Charges Inpatient E&M: 03273 Disch Hosp >30min 05/20/22 0940 <Electronically signed by Jesús Che DO> Cosigner Signature (if applicable): CC: Dr. Jose Ramon Turner MD; Dr. Jesús Che DO~ Signed [facility] Work Phone: [phone]) [phone] Che [facility] May 20, 2022 9:39am Note Date/Time May 20, 2022 9:3 3am [facility] Medical Records Department [facility] [place] [address] Instructions for Home/Discharge Instructions 05/20/22 0932 MR#: [id number] Acct: [id number] Name: YEFRI YANEZ Rep #:[id number] : 1965 57 From: Jesús Che DO [...] Qty: 60 0RF Referrals / Follow Up: [facility] [Provider Group] - 05/27/22 10:30 am *[facility] [Provider Group] - Within 1 Month Jose Ramon Turner MD [Primary Care Provider] - Within 2 Weeks Disposition Disposition (needs filled in before D/C Order can be placed): Home, Self Care 05/20/22 0939<Electronically signed by Jesús Che DO>Jesús Che DO CC: Dr. Jose Ramon Turner MD; Dr. Alicia Dukes MD ~ Signed [facility] Work Phone: [phone] Che [facility] May 20, 2022 9:32am Note Date/Time May 20, 2022 8:3 4am [facility] Medical Records Department [address] [place] [address] Progress Note - Hospitalist 05/20/22 0831 MR#: [id number] Acct: [id number] Name: YEFRI YANEZ Rep #:[id number] : 1965 57 From: Jesús Che DO PCP: Dr. Jose Ramon Turner MD Status: ADM IN Location: [place] [address] Reason for Visit Reason for Visit: Diagnoses [...] Cosigner Signature (if applicable): CC: ~ Signed [facility] Work Phone: [phone] 377-891903-14-[address] Che [facility] May 19, 2022 1:50pm Note Date/Time May 19, 2022 8:1 1am [facility] Medical Records Department [address] [place] [address] Progress Note - Hospitalist 05/19/22 0808 MR#: [id number] Acct: [id number] Name: YEFRI YANEZ Rep #:[id number] : 1965 57 From: Jesús Che DO PCP: Dr. Jose Ramon Turner MD Status: ADM IN Location: [place] [address] Reason for Visit Reason for Visit: Diagnoses [...] 80.8 H, Lymph % (Auto) 13.3 L, Boulder % (Auto) 4.9, Eos % (Auto) 0.2, [...] 80.2 H, Lymph % (Auto) 14.8 L, [place] % (Auto) 4.0, Eos % (Auto) 0.5, [...] Malachi Stephens MD at 16:45 EDT , Physical Exam Const alert and no [...] Coumadin therapeutic Charges/Coding Visit Charges Inpatient E&M: 58993 Subs Hosp L2 05/19/22 1350 <Electronically signed by Jesús Che DO> Cosigner Signature (if applicable): CC: ~ Signed [facility] Work Phone: [phone] 370-881203-13-[address] Banda [facility] May 18, 2022 8:58pm Note Date/Time May 18, 2022 4:1 8pm [facility] Medical Records Department [address] [place] [address] Emergency Department Summary 05/18/22 MR#: [id number] Acct: [id number] Name: YEFRI YANEZ Rep #:[id number] : 1965 57 From: Kassy Banda MD PCP: Dr. Jose Ramon Turner MD Status: ADM IN Location: [address] History of Present Illness Chief Complaint: [...] Medical decision making narrative: Patient placed on cardiac exercise specialist to evaluate for arrhythmia. Chest x-ray obtained [...] 80.8 H Lymph % (Auto) 13.3 L [place]oulder % (Auto) 4.9 Eos % (Auto) 0.2 [...] (Auto) Neut % (Auto) Lymph % (Auto) [place] % (Auto) Eos % (Auto) Baso % [...] likely: Positive for bilateral breath sounds and GAMER withhout PTX Management Discussion w/another healthcare provider: [...] Provider] - Disposition Disposition: Acute Care Hospital [facility] What to do if you have Problems For any increased pain, shortness of breath, bleeding, nausea or vomiting, chestpain, or any unexpected problems, contact your Primary Care Provider. Call [facility] ([phone]) or report to the closest Emergency Room. Call 911 if necessary. 05/18/222057 <Electronically signed by Kassy Banda MD> Cosigner Signature (if applicable): CC: Dr. Jose Ramon Turner MD ~ Signed [facility] Work Phone: [phone] 689-929203-13-2023 History and physical note Author Dr. Dukes [facility] May 18, 2022 7:34pm Note Date/Time May 18, 2022 6:3 8pm [facility] Medical Records Department [address] [place] [address] H&P Exam - Hospitalist 05/18/221822 MR#: [id number] Acct: [id number] Name: YEFRI AYNEZ Rep #:[id number] : 1965 57 From: Alicia Dukes MD PCP: Dr. Jose Ramon Turner MD Status: ADM IN Location: [facility] UTE[facility]- 1 HPI - General General Date of Admission: 05/18/22 Date of Service: 05/18/22 Chief Complaint: SOB, weight gain HPI Narrative YEFRI YANEZ, is a 57 M with a history of congestive heart failure, hypertension, NIMCO, renal cancer status post unilateral nephrectomy in March, A-fib on Coumadin presented to [facility] 05/18/2022 with increasing weight and shortness of [...] 80.8 H, Lymph % (Auto) 13.3 L, [place]oulder % (Auto) 4.9, Eos % (Auto) 0.2, [...] 16:45 EDT Reading Location ID and State: [facility] / [place] , Service support , Assessment & Plan [...] 60 minutes Charges/Coding Visit Charges Inpatient E&M: 44823 Init Hosp L2 03/1933 <Electronically signed by Alicia Dukes MD> Cosigner Signature (if applicable): CC: Dr. Jose Ramon Turner MD; Dr. Alicia Dukes MD~ Signed [facility] Work Phone: [phone]) 323-519302-08-[address] Chiu [facility] April 15, 2022 4:54pm Note Date/Time April 15, 2022 4 :54pm [facility] Medical Records Department [address] [place] [address] Progress Note - Hospitalist 04/15/22 1647 MR#: [id number] Acct: [id number] Name: YEFRI YANEZ Rep #:[id number] : 1965 57 From: Carol Chiu DO PCP: Dr. Jose Ramon Turner MD Status: ADM IN Location: [place] [address] Reason for Visit Reason for Visit: Diagnoses [...] 74.5 H, Lymph % (Auto) 15.1 L, Boulder % (Auto) 8.4, Eos % (Auto) 0.4, [...] distress and well nourished Constitutional Narrative: Obese, -Ugandan, male lying in bed on supplemental oxygen [...] be deferred till tomorrow -Troponins have been [phone] -This elevation may be related to his [...] post nephrectomy 02/06/2022--> Dr. Aravind Lopez at [facility] -Currently on chemotherapy -Patient has undergone radiation [...] -INR therapeutic Charges/Coding Visit Charges Inpatient E&M: 30066 Subs Hosp L2 04/15/22 1659 <Electronically signed by Carol Chiu DO> Cosigner Signature (if applicable): CC: ~ Signed [facility] Work Phone: [phone] 930-530402-07-[address] Chiu [facility] April 14, 2022 6:11pm Note Date/Time April 14, 2022 7 :40am [facility] Medical Records Department [address] [place] [address] Progress Note - Hospitalist 04/14/22 0737 MR#: [id number] Acct: [id number] Name: YEFRI YANEZ Rep #:[id number] : 1965 57 From: Carol Chiu DO [...] on February 06 by Aravind Lopez at [facility]. He does have metastatic disease to bone. [...] 79.4 H, Lymph % (Auto) 12.7 L, [place]oulder % (Auto) 7.1, Eos % (Auto) 0.0, [...] distress and well nourished Constitutional Narrative: Obese, -Ugandan, male sitting up in bed on supplemental [...] to be done tomorrow -Troponins have been [phone] -This elevation may be related to his [...] post nephrectomy 02/06/2022--> Dr. Aravind Lopez at [facility] -Currently on chemotherapy -Patient has undergone radiation [...] in a.m. Charges/Coding Visit Charges Inpatient E&M: 41782 Subs Hosp L2 04/14/22 1811 <Electronically signed by Carol Chiu DO> Cosigner Signature (if applicable): CC: ~ Signed [facility] Work Phone: [phone] History and physical note Author Dr. Camacho [facility] April 14, 2022 12:43am Note Date/Time April 14, 2022 1 2:24am [facility] Medical Records Department [address] [place] [address] H&P Exam - Hospitalist 04/13/22 2723 MR#: [id number] Acct: [id number] Name: YEFRI YANEZ Rep #:[id number] : 1965 57 From: Dangelo Camacho MD [...] 79.4 H, Lymph % (Auto) 12.7 L, [place]oulder % (Auto) 7.1, Eos % (Auto) 0.0, [...] 21:56 EST Reading Location ID and State: [facility] / [place] Tel , Service support , Assessment & Plan Assessment/Plan (1) Acute [...] is subtherapeutic. Charges/Coding Visit Charges Inpatient E&M: 24211 Init Hosp L3 04/14/22 0043 <Electronically signed by Dangelo Camacho MD> Cosigner Signature (if applicable): CC: Dr. Jose Ramon Turner MD; Dr. Dangelo Camacho MD~ Signed [facility] Work Phone: [phone] Dunn [facility] April 13, 2022 11:51pm Note Date/Time April 13, 2022 1 0:31pm [facility] Medical Records Department [address] [place] [address] Emergency Department Summary 04/13/22 MR#: [id number] Acct: [id number] Name: YEFRI YANEZ Rep #:[id number] : 1965 57 From: Kei Dunn DO [...] February [address] Aravind Lopez at [facility]. Patient reported that he is on a [...] 79.4 H Lymph % (Auto) 12.7 L [place] % (Auto) 7.1 Eos % (Auto) 0.0 [...] your Primary Care Provider. Call [facility] ([phone]) or report to the closest Emergency Room. Call 911 if necessary. 04/13/22 2471 <Electronically signed by Kei Dunn DO> Cosigner Signature (if applicable): CC: Dr. Jose Ramon Turner MD ~ Signed [facility] Work Phone: [phone]) 190-928902-07-[address] Dunn [facility] April 13, 2022 11:51pm Note Date/Time April 13, 2022 1 0:31pm [facility] Medical Records Department [address] [place] [address] Emergency Department Summary 04/13/22 MR#: [id number] Acct: [id number] Name: YEFRI YANEZ Rep #:[id number] : 1965 57 From: Kei Dunn DO [...] February [address] Aravind Lopez at [facility]. Patient reported that he is on a [...] 79.4 H Lymph % (Auto) 12.7 L [place] % (Auto) 7.1 Eos % (Auto) 0.0 [...] your Primary Care Provider. Call [facility] ([phone]) or report to the closest Emergency Room. Call 911 if necessary. 04/13/22 2351 <Electronically signed by Kei Dunn DO> Cosigner Signature (if applicable): CC: Dr. Jose Ramon Turner MD ~ Signed [facility] Work Phone: [phone]) 876-322702-02-2023 NoteHNO ID: [id number] Author: Sary Garcia RN Service: ? Author Type: Registered Nurse Type: Progress Notes Filed: 04/09/2022 1:29 PM Note Text: Patient treatment being held today per physician discretion. Sary Garcia RN [facility]02-02-2023 NoteHNO ID: [id number] Author: Liliam Ashley RN Service: ? Author Type: Registered Nurse Type: Progress Notes Filed: 04/09/2022 1:29 PM Note Text: Assistant Inventory Manager Chart Processing Date: 2022 Laboratory: Draw labs: Pending Labs. Office visit prior to treatment please verify all needed labs were drawn and review results. Chemotherapy Orders: Orders NOT released to Pharmacy. TREATMENT RN TO RELEASE Consents: Consent form needs signed by patient Special Instructions: Validate height [facility] History of Present illness Narrative* Sary Garcia RN - 04/09/2022 1:29 PM EST Patient treatment being held today per physician discretion. Sary Garcia RN BSN * Liliam Ashley RN - 04/09/2022 11:30 AM EST Assistant Inventory Manager Chart Processing Date: 2022 Laboratory: Draw labs: Pending Labs. Office visit prior to treatment please verify all needed labs were drawn and review results. Chemotherapy Orders: Orders NOT released to Pharmacy. TREATMENT RN TO RELEASE Consents: Consent form needs signed by patient Special Instructions: Validate height Liliam Ashley RN [facility]23 NoteHNO ID: [id number] Author: Haylee Wilburn MD Service: ? Author Type: Physician Type: Progress Notes Filed: 04/09/2022 4:21 PM Note Text: [facility] Progress Note SERVICE DATE: April 09, [...] started treatment with cabo + nivo on [facility] 1819 Trial on 08/08/2021 at [facility]. He has baseline HTN and developed worsening HTN after starting treatment. His cabo was held on 08/18/2021, resumed on 09/11/2021. The Nivo was held on 09/11/21 due to pneumonitis, and prednisone 60 mg daily was started and tapered off within about one month. Due to insurance change, he was taken off the trial and referred to [facility]cology. All treatments were supposed to be [...] radical nephrectomy by Dr. Aravind Hernandez at [facility] in [facility] on 02/06/2022. PATHOLOGY: -Renal cell carcinoma, clear-cell type, 5.3 x 3.0 x 2.7 cm, ISUP nuclear grade 3. -Carcinoma invades renal vein and lurdes-nephritic adipose tissue. -Margins of resection are negative for carcinoma. -Lymphovascular invasion not identified. -Regional lymph nodes not submitted. -[id number]. 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 He denies pain in the chest wall [...] tablet Take 2 table (more content not included)...[facility]01-26-2023 Miscellaneous Notes* Telephone Encounter - Donavon Eastman - 04/02/2022 11:02 AM EST Patient did not show for appointment with MW, left message to call office put on recall Donavon Eastman' documented in this encounterBarney Children'S Medical Center01-26-2023 Miscellaneous Notes* Telephone Encounter - America Schwartz RN - 04/02/2022 10:51 AM ESTSummary: Appointment Called patient and in regards to missed office visit with Dr. Wilburn, and immunotherapy appointment. No answer left messages for patient to call and reschedule. America Schwartz RN, BSN, OCN documented in this encounterBarney Children'S Medical Center01-19-2023 NoteHNO ID: [id number] Author: Jerica Parsons RT(R) Service: Radiology Author [...] Yanez DATE: March 26, 2022 TIME: 10:16 [facility]01-18-2023 Miscellaneous Notes* Telephone Encounter - Tania Parekh RN - 03/25/2022 8:57 AM EST Patient called stating his insurance is not approved for our office and that Dr. Wilburn needs to place a Referral for Nathaniel. I reminded him that last week he called me telling me that his insurance is making him go to [facility] for the scans and not Nathaniel [...] insurance information.Tania Parekh RN documented in this encounterBarney Children'S Medical Center01-16-2023 NoteHNO ID: [id number] Author: RT Citlaly(R) Service: ? Author Type: [...] safety can be found using this link: [email or web address] %[email or web address]-%20Diagnostic%20Nuclear%20Medicine%20Procedures.pdf SIGNATURE: RT Citlaly(R) PATIENT NAME: Yefri Yanez DATE: March 23, 2022 TIME: 12:10 PM PAGER/CONTACT #:[facility]01-16-2023 History of Present illness Narrative* RT Citlaly(R) [...] radiation safety can be found usingthis link: [email or web address]%20Protection%20-% 20Diagnostic%20Nuclear%20Medicine%20Procedures.pdf SIGNATURE: RT Citlaly(R) PATIENT NAME: Yefri Yanez DATE: March 23, 2022 TIME: 12:10 PM PAGER/CONTACT #: documented in this encounterBarney Children'S Medical Center01-09-2023 Miscellaneous Notes* Telephone Encounter - Malachi Schaffer RPh - 03/16/2022 11:27 AM EST Prior authorization was approved for Inlyta. Plan Name: [employer] [place] reference number: [id number] Approval Dates: 03/08/2022 - 03/13/2023 However, s/he is required to use [facility] to fill this medication. Will queue prescription(s) to go to designated specialty pharmacy. For reference, their pharmacy phone number is [phone]. No further action by [facility] Specialty. Radha Schaffer, PharmD, AAHIVP Clinical Pharmacist, Oncology [facility] P: ; F: Pool: P CC [facility] ONCOLOGY Pool #: [id number] documented in this encounterBarney Children'S Medical Center01-05-2023 Miscellaneous Notes* Telephone Encounter - America Schwartz RN - 03/12/2022 10:37 AM ESTSummary: Appointment LMOM with the appointment dates, times and location of upcoming bone scan and CT scans. Bone scan 03/23/22 at 830 am here at the [facility] hospital. CT scans at [place] [facility] 03/24/22 at 1pm. America Reed RN, BSN, OCN documented in this encounterBarney Children'S Medical Center01-05-2023 [facility]Prom[facility] NoteProm[facility]-2023 NoteProm[facility]01-05-[facility]23 History of Present illness Narrative* Adrienne Chung (Youtuber) - 03/12/2022 8:13 AM EST [facility] received prescription(s) for Inlyta from Dr. Wilburn's office. Benefits investigation was conducted, indicating that a prior authorization is required by patient's insurance plan with [employer]. Encounter will be updated once prior authorization has been submitted by [facility]. Adrienne Chung, Lead [facility], Oncology P: / F: documented in this encounterBarney Children'S Medical Center01-04-2023 NoteHNO ID: [id number] Author: Haylee Wilburn MD Service: ? Author Type: Physician Type: Progress Notes Filed: 03/11/2022 4:16 PM Note Text: [facility] [place] Progress Note SERVICE DATE: March 11, 2022 [...] started treatment with cabo + nivo on [facility] 1820 Trial on 08/08/2021 at [facility]. He has baseline HTN and developed worsening HTN after starting treatment. His cabo was held on 08/18/2021, resumed on 09/11/2021. The Nivo was held on 09/11/21 due to pneumonitis, and prednisone 60 mg daily was started and tapered off within about one month. Due to insurance change, he was taken off the trial and referred to [facility] to resume the treatment. He was scheduled to have nephrectomy on 11/04/21, but delayed due to his back pain. He underwent palliative XRT to L3-L5 (2,000 cGy in 5 fx), completed 12/26/21). He underwent da Farzad assisted robotic right radical nephrectomy at [facility] in [facility]. I do not have the official pathology report yet. We have made multiple requests to [facility] for the surgical pathology, to no avail. [...] Admin perflutren lipid microsphere (more content not included)...[facility] 03-11-2022 History of Present illness Narrative* Haylee Wilburn MD - 03/11/2022 1:25 PM EST Images from the original note were not included. [facility] Progress Note SERVICE DATE: March 11, [...] started treatment with cabo + nivo on [facility] 1820 Trial on 08/08/2021 at [facility]. He has baseline HTN and developed worsening HTN after starting treatment. His cabo was held on 08/18/2021, resumed on 09/11/2021. The Nivo was held on 09/11/21 due to pneumonitis, and prednisone 60 mg daily was started and tapered off within about one month. Due to insurance change, he was taken off the trial and referred to [facility] to resume the treatment. He was scheduled to have nephrectomy on 11/04/21, but delayed due to his back pain. He underwent palliative XRT to L3-L5 (2,000 cGy in 5 fx), completed 12/26/21). He underwent da Farzad assisted robotic right radical nephrectomy at [facility] in [facility]. I do not have the official pathology report yet. We have made multiple requests to [facility] for the surgical pathology, to no avail. [...] underwent radical nephrectomy by Dr. Lopez at [facility], but I do not have [...] cc: Daksha Turner MD documented in this encounterBarney Children'S Medical Center12-27-2022 NoteSend Summary: Discharge Summary Providers: Provider RoleProvider Name Aravind Kinsey Christopher Note Recipients: Aravind Hernandez MD Ranney, Christopher, MD - [phone] [] Discharge: Summary: Admission Date: .06-Feb-2022 08:57:00 [...] Data Referenced From Consult-DACR, Medicine 07-Feb-2022 16:43[facility]12-13-2022 NoteHNO ID: [id number] Author: Hayele Wilburn MD Service: ? Author Type: Physician Type: Progress Notes Filed: 02/17/2022 5:25 PM Note Text: [facility] Progress Note SERVICE DATE: February 17, [...] started treatment with cabo + nivo on [facility] 182 Trial on 08/08/2021 at [facility]. He has baseline HTN and developed worsening HTN after starting treatment. His cabo was held on 08/18/2021, resumed on 09/11/2021. The Nivo was held on 09/11/21 due to pneumonitis, and prednisone 60 mg daily was started and tapered off within about one month. Due to insurance change, he was taken off the trial and referred to [facility] to resume the treatment. He was scheduled to have nephrectomy on 11/04/21, but delayed due to his back pain and palliative XRT to L3-L5 (2,000 cGy in 5 fx, completed 12/26/21). His back pain has resolved. He underwent da Farzad assisted robotic right radical nephrectomy at [facility] in [facility]. I do not [...] headaches and light-headedness. Hematol (more content not included)...[facility]12-13-2022 History of Present illness Narrative* Haylee Wilburn MD - 02/17/2022 5:02 PM EST Images from the original note were not included. [facility] Progress Note SERVICE DATE: February 17, [...] started treatment with cabo + nivo on [facility] 182 Trial on 08/08/2021 at [facility]. He has baseline HTN and developed worsening HTN after starting treatment. His cabo was held on 08/18/2021, resumed on 09/11/2021. The Nivo was held on 09/11/21 due to pneumonitis, and prednisone 60 mg daily was started and tapered off within about one month. Due to insurance change, he was taken off the trial and referred to [facility] to resume the treatment. He was scheduled to have nephrectomy on 11/04/21, but delayed due to his back pain and palliative XRT to L3-L5 (2,000 cGy in 5 fx, completed 12/26/21). His back pain has resolved. He underwent da Farzad assisted robotic right radical nephrectomy at [facility] in [facility]. I do not have the official pathology [...] MD on 10/20/2021 PLAN: Old records from [facility] including surgical pathology and scans. Follow-up in 3 weeks regarding systemic therapy. Haylee Wilburn MD cc: Daksha Turner MD documented in this encounterBarney Children'S Medical Center12-13-2022 Miscellaneous Notes* Telephone Encounter - Florian Mello [...] with Dr. Tello. Please call her at [phone]. documented in this encounterBarney Children'S Medical Center12-12-2022 NoteHNO ID: [id number] Author: Sayra Tello MD Service: ? Author Type: Physician Type: Progress Notes Filed: 02/16/2022 11:29 AM Note Text: [facility] OUTPATIENT VISIT DATE 02/16/2022 OUTPATIENT VISIT TYPE NEW PATIENT PRIMARY CARE PHYSICIAN: Daksha Turner (Sarah) [address] [place] [id number] HISTORY OF PRESENT ILLNESS: 57-year-old male CAD, [...] sometimes tobacco. 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 PAST MEDICAL HISTORY Diagnosis Date Abdominal aortic [...] 1 tablet by kellie (more content not included)...[facility]12-12-2022 Instructions* Patient Instructions* Florian Mello RN - 02/16/2022 11:23 AM EST We will call you with the date and time of your test. Please report to the Cardiac Diagnostics Department: Located on the 2nd floor of the surgery center on [address] ([facility]). Card Filer and free parking is available. The test may be scheduled at a different location. If this happens the supervisor painting will notify you when calling to give you the date and time information. If you have any questions regarding the test or if you need to cancel / reschedule your appointment, please call [phone] as soon as possible. Please refer to [...] them, faxthem, drop them off, or use [facility]. If you have any questions before your next appointment please call Florian Montana RN @ [phone] ext [phone]. If Adrienne asked you to call her so she can help you with [place] [employer] you can call her at [phone] ext [phone]. documented in this encounterBarney Children'S Medical Center12-12-2022 History of Present illness Narrative* Sayra Tello MD - 02/16/2022 10:00 AM EST Images from the original note were not included. [facility] OUTPATIENT VISIT DATE 02/16/2022 OUTPATIENT VISIT TYPE NEW PATIENT PRIMARY CARE PHYSICIAN: Daksha Turner ([facility]) [address] [place] [id number] HISTORY OF PRESENT ILLNESS: 57-year-old male CAD, [...] sometimes tobacco. 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 PAST MEDICAL HISTORY Diagnosis Date Abdominal aortic [...] capsule (Patient not taking: Reported on 02/16/2022) TRELEOMAYRA ELLIPTA 100-62.5-25 mcg inhalation powder torsemide (DEMADEX) [...] previous ECGs available Confirmed by YARY CLEMENT, [facility] ([id number]) on 01/20/2022 8:35:[address] Result Conclusion CT CHEST W IVCON Exam End: 11/20/2021 10:37 AM (Edited Result - FINAL) Addendum: * * *Final Report* * * * * * SEE BOTTOM OF REPORT FOR ADDENDED TEXT * * * DATE OF EXAM: Nov 20 2021 10:37AM [facility]39 - CT CHEST W IVCON / [...] MR moderate TR moderate AI RVSP [address] [facility] 08/05/2021: Mid left main 20%, mild diffuse [...] sometimes tobacco. 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 Plan: Reviewed all the prior reports including [...] diagnosis) Sayra Tello MD documented in this encounterBarney Children'S Medical Center12-09-2022 NoteHNO ID: [id number] Author: Suman Peterson APRN.PHOTO MASK PATTERN GENERATOR Service: ? Author Type: Nurse Practitioner Type: [...] or develops any concerning symptoms. Suman Peterson APRN.[facility]12-09-2022 Nurse Note* Tamiko Mason RN - 02/13/2022 2:13 PM EST Images from the original note were not included. Radiation Therapy - Nursing Note (Follow-up) PATIENT NAME: Yefri Yanez PATIENT February 13, 2022 [facility] FACILITY/LOCATION: [facility] Reason for visit: Follow up. Subjective Data Patient reports 8/10 pain r/t recent right nephrectomy at on 02/06. Additional Data Do you want to see a Medical Insurance Clerk? No Difficulty performing or completing routine daily [...] MOB 02/17/2022 11:30 AM Haylee Wilburn MD [facility] Courtney CLEMENT MOB SIGNED by: Tamiko Mason RN documented in this encounterBarney Children'S Medical Center12-09-2022 History of Present illness Narrative* Suman Peterson APRN.[facility] - 02/13/2022 2:02 PM EST Radiation Oncology [...] symptoms. Suman Peterson APRN.BEATRICE documented in this encounterBarney Children'S Medical Center12-06-2022 Hospital Discharge instructions* Follow Up Appointment 1:Physician/Dept/Service: Dr. Lockett for Referral: post op follow upCall to Schedule in: 2 weeksPhone Number: [phone]: Please call to schedule appointment * Follow [...] WORRISOME - NOTIFY YOUR PHYSICIAN OR RESIDENT ELECTRICAL EQUIPMENT TESTER. - Fever g reater than 101 F or 38.3 C, chills, nausea, vomiting, or feeling ill. - Inability to urinate. - Drainage of foul smelling fluid (pus) from the incision or drain sites. - Excruciating pain that is not controlled by prescription or wvrw-ftb-bsdpzvt medications. * Medication Information:- You were sent [...] appointments, please call our Main Office at [phone]. [facility]12-02-2022 NotePROCEDURE DETAILS Preoperative Diagnosis: renal cell carcinoma, congestive heart failure Postoperative Diagnosis: renal cell carcinoma, congestive heart failure Surgeon: Aravind Hernandez MD Resident/Fellow/Other Station Chief: Clau Diallo MD Procedure: laparoscopic right radical [...] to the xiphoid process. A 12 mm elementary assistant teacher port was placed a hands-breadth inferolateral to [...] then closed in several layers. Initially, several zygsdj-to-qbyfn sutures were placed with 0 Vicryl to reapproximate the bellies of the rectus abdominis. The anterior rectus fascia was then closed using running 0 PDS suture x2. Subcutaneous fat was then c (more content not included)...[facility]12-02-2022 Note History & Physical Reviewed: I have [...] the note. I personally evaluated the patient [id number] Electronic Signatures: Aravind Hernandez) (Signed 07-Feb-2022 09:05) Authored: Note Completion Co-Signer: History & Physical Reviewed, ERAS, Consent, Note Completion Clau Diallo (Resident)) (Signed 06-Feb-2022 07:12) Authored: History & Physical Reviewed, ERAS, Consent, Note Completion Last Updated: 07-Feb-2022 09:05 by Aravind Hernandez)[facility] 01-22-2022 Miscellaneous Notes* Telephone Encounter - Bairon Landers MA - 01/22/2022 1:00 PM EST Pt called in to request a refill on his torsemide to be sent to [facility] [place], this request wassent to Kitty Carballo for approval and processing. Per Kitty this was refused due to we don't prescribe this medication, I called to advise Pt that he will need to contact the prescribing doctor to get a refill on this mediation. He verbalized understanding. documented in this encounterBarney Children'S Medical Center11-14-2022 NoteHNO ID: [id number] Author: RT Kourtney(R) Service: Radiology Author Type: [...] BY: RT Kourtney(R) January 19, 2022 11:03 [facility]11-14-2022 History of Present illness Narrative* RT Kourtney(R) - 01/19/2022 10:45 AM ESTSummary: CHEST Radiology [...] PERIPHERAL IV DATA: Not applicable SIGNED BY: Jason Petersen RT(R) January 19, 2022 11:03 AM documented in this encounterBarney Children'S Medical Center10-28-2022 NoteHNO ID: [id number] Author: Alfredo Xavier MD Service: Radiation Oncology Author Type: Physician Type: Progress Notes Filed: 01/07/2022 12:35 AM Note Text: YEFRI YANEZ [id number] 2022 [facility] Department of Radiation Oncology [facility] RADIATION ONCOLOGY: COMPLETION NOTE DATE OF SIMULATION: 12/12/2021 DATES OF TREATMENT: 12/22/2021 to 12/26/2021 TREATMENT MACHINE: HealthTeacher / GoNoodle TREATMENT AREA: L3-L5 , R CW DIAGNOSIS: 57 year old male with Malignant neoplasm of right kidney, except renal pelvis , histological stage [id number] and clinical stage IV CONCURRENT THERAPY: DELIVERED [...] improvement to Staff Physician Alfredo Xavier M.D. :36 PM Electronically Signed cc: Daksha Mills, [facility]10-28-2022 History of Present illness Narrative * Alfredo Xavier MD - 2022 12:00 AM EDT YEFRI YANEZ [id number] 2022 [facility] Department of Radiation Oncology [facility] RADIATION ONCOLOGY: COMPLETION NOTE DATE OF SIMULATION: 12/12/2021 DATES OF TREATMENT: 12/22/2021 to 12/26/2021 TREATMENT MACHINE: HealthTeacher / GoNoodle TREATMENT AREA: L3-L5 , R CW DIAGNOSIS: 57 year old male with Malignant neoplasm of right kidney, except renal pelvis , histological stage [id number] and clinical stage IV CONCURRENT THERAPY: DELIVERED [...] of improvementto Staff Physician Alfredo Xavier M.D. :36 PM Electronically Signed cc: Daksha Mills Michael documented in this encounterBarney Children'S Medical Center10-25-2022 Miscellaneous Notes* Telephone Encounter - Adriana Hodge MD - 12/30/2021 1:53 PM EDT IC Adriana Hodge MD documented in this encounterBarney Children'S Medical Center10-23-2022 Miscellaneous Notes* Telephone Encounter - Adriana Hodge [...] the anaestheic including but not limited to AK, CVA, DVT, and PE, and the risks [...] proceed. Adriana Hodge MD documented in this encounterBarney Children'S Medical Center10-22-2022 Miscellaneous Notes* Telephone Encounter - Adriana Hodge MD - 12/27/2021 7:07 PM EDT I tried to call to move his care forward, but had to leave messages on both lines Adriana Hodge MD documented in this encounterBarney Children'S Medical Center10-07-2022 NoteHNO ID: [id number] Author: Alfredo Xavier MD Service: Radiation Oncology Author Type: Physician Type: Progress Notes Filed: 12/17/2021 12:34 AM Note Text: YEFRI YANEZ [id number] 12/12/2021 [facility] Department of Radiation Oncology Treatment Planning Note [...] DVH. Electronically Signed Alfredo Xavier M.D. :19 [facility]22 NoteHNO ID: [id number] Author: Alfredo Xavier MD Service: Radiation Oncology Author Type: Physician Type: Progress Notes Filed: 12/17/2021 12:34 AM Note Text: YEFRI YANEZ [id number] 12/12/2021 [facility] Department of Radiation Oncology [facility] RADIATION ONCOLOGY SIMULATION NOTE DATE OF SIMULATION: 12/12/2021 MACHINE: Melissa CT DIAGNOSIS: Malignant neoplasm of right kidney, [...] nursing. Electronically Signed Alfredo Xavier M.D. :06 [facility]10-[facility]-2022 History of Present illness Narrative* Alfredo Xavier MD - 12/12/2021 12:00 AM EDT YEFRI YANEZ [id number] 12/12/2021 [facility] Department of Radiation Oncology Treatment Planning Note [...] Xavier M.D. :19 PM documented in this encounterBarney Children'S Medical Center10-07-2022 History of Present illness Narrative* Alfredo Xavier MD - 12/12/2021 12:00 AM EDT YEFRI YANEZ [id number] 12/12/2021 [facility] Department of Radiation Oncology [facility] RADIATION ONCOLOGY SIMULATION NOTE DATE OF SIMULATION: 12/12/2021 MACHINE: Melissa CT DIAGNOSIS: Malignant neoplasm of right kidney, [...] Xavier M.D. 25:06 PM documented in this encounterBarney Children'S Medical Center10-04-2022 NoteHNO ID: [id number] Author: Alfredo Xavier MD Service: ? Author Type: Physician Type: Progress Notes Filed: 12/09/2021 11:55 AM Note Text: Radiation Oncology - New Patient/Consult Note PATIENT NAME: Yefri aYnez PATIENT REQUESTING PROVIDER: Adriana Hodge MD. DIAGNOSIS: [...] He was evaluated in the ER at [facility]. As part of his work-up a CT [...] Nondistended. Musculoskeletal: No e (more content not included)...[facility] 12-09-2021 Nurse Note* Tamiko Mason RN - 12/09/2021 10:18 AM EDT Images from the original note were not included. Radiation Therapy - Nursing Note (Consult) PATIENT NAME: Yefri Yanez PATIENT December 09, 2021 [facility] FACILITY/LOCATION: [facility] Chief Complaint: Metastatic Renal Cell Cancer Reason for visit: Consult. Referring physician: Internal provider Dr. Cox, Dr. Wilburn Subjective Data: Patient denies pain at this time, he reports occasional pain in his lower back farnaz cramping sensation in the back of his thighs. He denies pain to the chest wall/rib. He reports that he was just discharged today from [facility]. He was admitted on Wednesday for shortness of breath. He reportedly received lasix and breathing treatments. He has an upcoming appt with his firearms model maker, Dr. Black at [facility]. Additional Data Do you want to see a Medical Insurance Clerk? No Are you interested in information about fertility? No Sexual Activity: Male: N/A Stress Scale: On a scale of 0 to 10, what number best describes how much distress you have experienced in the past week?(0 being no distress and 10 being extreme distress) 2 Social work notified: no GENERAL INFORMATION: PREVIOUS CHEMOTHERAPY: Pt started chemotherapy with Cabometyx + Nivolumab as per [facility] 1819 Trial. Reportedly this was [...] oxygen in the home? No Employment: Retired [employer] ADVANCED DIRECTIVES: Does the patient have an [...] by: Tamiko Mason RN documented in this encounterBarney Children'S Medical Center10-04-2022 History of Present illness Narrative* Alfredo Xavier [...] on ice. He was evaluated in the [facility]. As part of his work-up a [...] by: Alfredo Xavier MD cc: Daksha Turner (Sarah) [address] [place] [id number] documented in this encounterBarney Children'S Medical Center10-04-2022 Telephone encounter Note * Telephone Encounter - Noreen Morejon - 12/09/2021 9:28 AM EDT Patient unable to contact No voicemail to return call Invalid Number Letter sent CALI May Statistical Methods Teacher [place] [address] [place] [address] [email or web address] Miscellaneous Notes* Telephone Encounter - Noreen Morejon - 12/09/2021 9:28 AM EDT Patient unable to contact No voicemail to return call Invalid Number Letter sent CALI May Statistical Methods Teacher [facility] [address] [place] [address] [place] [address] [email or web address] documented in this [id number] Miscellaneous Notes* Telephone Encounter - Adriana Hodge [...] his Adriana Hodge MD documented in this encounterBarney Children'S Medical Center09-19-2022 Miscellaneous Notes* Telephone Encounter - America Schwartz RN - 11/24/2021 12:23 PM EDTSummary: Requesting pain medication Patient is requesting patient medication for pain in bilateral legs, states that it is a 6/10 constant cramping. Informed patient that nurse will discuss with physician and return call. Patient verbalized understanding. America Schwartz RN, BSN, OCN documented in this encounterBarney Children'S Medical Center09-15-2022 NotePromedica Bay [facility]09-15-2022 NotePromedica Bay Park Hospital09-15-2022 History of Present illness Narrative* Marcelino [...] Intact, Site disposition Discontinued SIGNED BY: RT Chelo(Damion) November 20, 2021 10:33 AM documented in this encounterBarney Children'S Medical Center09-14-2022 NoteHNO ID: [id number] Author: Haylee Wilburn MD Service: ? Author Type: Physician Type: Progress Notes Filed: 11/19/2021 9:58 AM Note Text: [facility] Progress Note SERVICE DATE: November 19, [...] started treatment with cabo + nivo on [facility] 1820 Trial on 08/08/2021 at [facility]. He has baseline HTN and developed worsening HTN after starting treatment. His cabo was held on 08/18/2021, resumed on 09/11/2021. The Nivo was held on 09/11/21 due to pneumonitis, and prednisone 60 mg daily was started and tapered off within about one month. Due to insurance change, he was taken off the trial and referred to [facility] to resume the treatment. He was [...] to person, place, and time. IMPRESSION: Yefri Yaenz is a 56 year old male diagnosed with metastatic RCC in June. He started neoadjuvant Cabo/Nivo, held due to HTN and pneumonitits since August. He is scheduled to have radical nephrectomy at [facility] soon after the repeat CT. STAGE: [...] surgery. Haylee Wilburn MD cc: Daksha Turner, [facility]09-14-2022 NoteHNO ID: [id number] Author: Haylee Wilburn MD Service: ? Author Type: Physician Type: Progress Notes Filed: 11/25/2021 3:53 PM Note Text: Note opened in [facility]09-14-2022 NoteHNO ID: [id number] Author: Bernarda Kee MA Service: ? Author Type: Instrument Mechanics Supervisor Type: Progress Notes Filed: 11/19/2021 9:58 AM Note Text: This note was created using NoteWriter. Subjective [...] BMI 37.59 kg/m? Physical Exam Assessment and [facility]09-14-2022 History of Present illness Narrative* Haylee Wilburn MD - 11/19/2021 9:33 AM EDT Images from the original note were not included. [facility] Progress Note SERVICE DATE: November 19, [...] started treatment with cabo + nivo on [facility] 1820 Trial on 08/08/2021 at [facility]. He has baseline HTN and developed worsening HTN after starting treatment. His cabo was held on 08/18/2021, resumed on 09/11/2021. The Nivo was held on 09/11/21 due to pneumonitis, and prednisone 60 mg daily was started and tapered off within about one month. Due to insurance change, he was taken off the trial and referred to [facility] to resume the treatment. He was [...] is scheduled to have radical nephrectomy at [facility] soon after the repeat CT. STAGE: [...] AM EDT This note was created using NoteWriter. Subjective [...] Exam Assessment and Plan documented in this encounterBarney Children'S Medical Center09-01-2022 Miscellaneous Notes* Telephone Encounter - Tania Parekh RN - 11/06/2021 9:30 AM EDT Spoke with solar sales representative and assessor from [employer], she is asking that we reach out to patient to have them deliver his Cabometyx. She stated they have called him multiple times, yet he will not answer, and the one time he did answer she went over who she was and patient hung up on her.Tania Parekh RN documented in this encounterBarney Children'S Medical Center08-22-2022 Miscellaneous Notes* Telephone Encounter - Lisa Christensen PA-C - 10/27/2021 3:14 PM EDT Images from the original note were not included. Lalo Black MD You; [facility] Rn Resource Pool 1 18 minutes ago (2:50 PM) Dear Lisa, Sj for reaching out to me. At this [...] you for your help, Lisa Christensen PA-C [facility] PACC documented in this encounterBarney Children'S Medical Center08-22-2022 History and physical note * Lisa Christensen [...] 366 QTC Calculation (Bazett) 440 Calculated R [place] 68 Calculated T [place] 72 Impression ATRIAL FIBRILLATION NONSPECIFIC T WAVE [...] prior LISA Recent Results (from the past 03754 hour(s)) ECHO Collection Time: 09/04/21 11:03 AM [...] * * * Final * * * [facility] 08/05/2021 + + DIAGNOSTIC FINDINGS + + [...] CAD (coronary artery disease) Assessment: Nonobstructive on [facility] 08/05/2021. METS: Climb a flight of stairs [...] received from Dr. Black, see TE in [facility] on 10/27/2021. Called pt and informed him of warfarin instructions, pt verbalized understanding. Lalo Black MD You; Pacc Rn Resource Pool 1 [...] Initiated: Orders placed by surgeon/surgical service in [facility]. Planned Anesthetic: Per anesthesia choice Instructions Given to Patient: Instructions located in the after visit summary. Patient given verbal and written preop instructions and voices comprehension and compliance. SIGNATURE: Lisa Christensen PA-C PATIENT NAME: Yefri Yanez DATE: October 24, 2021 TIME: 11:08 AM documented in this encounterBarney Children'S Medical Center08-19-2022 Instructions* Patient Instructions* Lisa Christensen PA-C - 10/24/2021 11:20 AM EDT PATIENT PREOPERATIVE INSTRUCTIONS Adriana Hodge MD has scheduled you for your procedure at this surgery center: [facility] [place] Scheduling Office: [phone] --[address] [place] [address]. Please read below carefully for your personalized [...] NOT stop warfarin without consulting with your firearms model maker or prescribing physician. - Stop Vitamin E, [...] call the Wednesday before. Your surgeon s supervisor painting will tell you what time to call the office. - If you have not reached the departmental supervisor painting by 5 P.M., call [phone] after 5 P.M. the day before your surgery. Please be aware that emergency situations arise, which may delay or change your surgical time. If this happens, we will notify you as soon as possible and regret any inconvenience. If you already have an Advance Directive, please fax a copy to [phone] or email to for it to be [...] your chart that day. documented in this encounterBarney Children'S Medical Center08-16-2022 NotePromedica Bay Park Hospital08-16-2022 NotePromedica Bay Park Hospital08-16-2022 NotePromedica Bay Park Hospital08-15-2022 NoteHNO ID: [id number] Author: Haylee Wilburn MD Service: ? Author Type: Physician Type: Progress Notes Filed: 10/21/2021 9:38 AM Note Text: [facility] Oncology Consult Note SERVICE DATE: October [...] started treatment with [facility] + nivo on [facility] [...] taken off the trial and referred to [facility] to resume the treatment. He is [...] Negative. Respiratory: Negative. Cardiovascul (more content not included)...[facility]08-11-2022 Miscellaneous Notes* Telephone Encounter - Jayy Kenyon Pss - 10/16/2021 8:22 AM EDT Tayler from [facility] is requesting a referral for Dr. Haylee Wilburn, to have patient scheduled for Wednesday, 10/20. Patient has been identified by name and birthdate. Duration of symptoms: N/A Requesting response back: Call [phone] if needed. Jayy Fair October 16, 2021 documented in this encounterBarney Children'S Medical Center08-09-2022 Miscellaneous Notes* Telephone Encounter - Rahul Knight RN - 10/14/2021 5:09 PM EDT Pt called back to discuss his questions regarding insurance coverage for [facility]. Pt did not answer, sovoice message left with instructions to call back. Also attempted to call pt's , also with no answer. Voice message left for spouse as well. Fazal Knight RN, BSN documented in this encounterBarney Children'S Medical Center08-09-2022 Miscellaneous Notes* Telephone Encounter - Lisa Stark - 10/14/2021 2:46 PM EDT Yefri Theodora Yanez('s) spouse is calling Kenneth Chester MD today regarding Patient Question Patient has been identified by name and birthdate. Would like to know why Yefri wasn't approved for research study Duration of symptoms: N/A Requesting response back: call at home [phone] (home) Lisa Stark October 14, 2021 documented in this encounterBarney Children'S Medical Center08-04-2022 [facility]08-04-2022 [facility]08-04-2022 Nurse Note* Ariadne Wood RN - 10/09/2021 10:22 AM EDT Additional intake questions: Has the patient had fever, nausea, vomiting, diarrhea, constipation, fatigue for > 1 week? Yes, fatigue Does the patient have a decreased appetite? No Does patient want to see a Medical Insurance Clerk? No (yes to any of above refer patient to schedulers for dietitian appointment) ) Does patient have any new or increased numbness or tingling of extremities? No Is patient interested in fertility information? No Does patient need any prescription refills? No Does patient have an advanced directive in place? No, Patient referred to Resource Center documented in this encounterBarney Children'S Medical Center08-04-2022 History of Present illness Narrative* Godfrey Ohara APRN.PHOTO MASK PATTERN GENERATOR - 10/09/2021 9:45 AM EDT Images from the original note were not included. [facility] Progress Note Oncology Clinic Patient name: Yefri [...] Abs Lymph 1.00 - 4.00 k/uL 2.33 Boulder% % 4.8 Abs Boulder <0.87 k/uL 0.35 Eosin% % 0.4 Abs [...] Started treatment with cabo + nivo on [facility] 1820 on 08/08/2021. He has [...] clinical trial - Patient withdrew consent from [facility] 1820 and all follow up [...] which included preparing to see the patient, [id number] patient care, completing clinical documentation, obtaining and/or [...] Oncology Advanced Practice Provider documented in this encounterBarney Children'S Medical Center08-04-2022 History of Present illness Narrative* Rahul Knight RN - 10/09/2021 9:20 AM EDT IRB#: [id number], [facility], Cyto-KIK; TRIAL (CYTO reductive surgery in Kidney cancer plus Immunotherapy (nivolumab) and targeted Kinase inhibition (cabozantinib) Cycle: 2 Week: 1 Phase: 2 Cohort: 2 Pt is here for withdrawal of consent of IRB# [id number] . PE completed by Godfrey Ohara APRN, PHOTO MASK PATTERN GENERATOR. Was PE completed by a Fellow No [...] call with any ongoing questions about transferri records or if other help is required [...] Anxiety r/t procedure 07/15/2021 08/06/21 Potassium Chloride* ([id number]) 20 MEQ PACKET Active 20 MEQ PO [...] Take one(1) tablet daily. General [facility] 2017 Take 2 tablets by mouth once daily [...] Fazal Knight RN, BSN documented in this encounterBarney Children'S Medical Center07-25-2022 Miscellaneous Notes* Telephone Encounter - Sheela Chisholm RN - 09/29/2021 2:05 PM EDT Called patient for follow up from recent hospital discharge but no answer, message left on voicemail including resource nurse phone number. documented in this encounterBarney Children'S Medical Center07-25-2022 NotePromedica Bay Park Hospital07-25-2022 History of Present illness Narrative* Safia Carr, [facility] - 09/29/2021 7:19 AM EDT TRANSITION CARE MANAGEMENT (TCM) HEART FAILURE PHARMACY CONTACT Provider Action/FYI: TCM Medication Reconciliation partially completed for patient. See medication list table below for details. Medications discussed per patient preference outlined in bold in table below. Sent [employer] secure chat to Andre Harden CNP: 1) [...] Nephro for plan on Prednisone taper. Called [facility] pharmacy and ensured that Rx for Torsemide [...] take his insurance card. Pt to try [facility] instead of [facility]. Patient Workup: HF medication classes present on [...] oz) Patient was sent a message via [facility] including the link to the [facility] Heart Failure education video: Yes Initial contact with patient post discharge, spoke to patient and spouse, Miya,. Patient identified by name and . Summary: -Pt discharged from [facility] on 09/26/21. -Follow up appointment on 10/20/21. -Medication review done Partial medication review completed - per patient preference -Admitted for acute systolic heart failure Patient was contacted by telephone, identified for pharmacist care from discharge call list, and gave consent to manage medications related to transitional care management pursuant to the consult agreement with the [facility]. Patient Concerns: Review and discussion of [...] subcutaneously q 12 HR. Re-initiated, Sent to [facility], Pt has filled and is taking as prescribed. PharmD called [facility] and verified that pt filled Rx for [...] tablets by mouth once daily. Sent to [facility], Pt has filled and is taking as prescribed. Pt's spouse will call Photographic Printer to determine the plan on this taper [...] tablets by mouth once daily. Sent to [facility], Pt has filled and is taking as [...] (40mg) by mouth once daily. Sent to [facility], Pt has filled and is taking as prescribed. PharmD called [facility] and verified that Torsemide Rx was filled as generic (pharmacy filled as generic) warfarin (COUMADIN) 5 mg tablet Take 1 tablet by mouth once daily. Sent to [facility], Pt has filled and is taking as prescribed. INR Date Value Ref Range Status 09/26/2021 1.3 0.9 - 1.3 Final Comment: Vitamin K Antagonist (VKA) Therapeutic Range: INR 2 to 3 (Target INR of 2.5) Note: For patients treated with VKA drugs, such as warfarin, the [place] [employer] 2012 Guideline recommends [...] to 3.5 (target INR of 3). Lars GH, et al. Chest 2012, 141:7S-47S Caitie RA, et al. [facility] 2017, 70: 252-289 Pt had appt with PCP to check INR on 09/29/21 (INR was 1.9) and will have f/u INR on 10/03/21 with PCP. Pt's spouse states that new dose is Warfarin 6mg daily. Preferred pharmacy: e- [facility]/pharmacy #[id number] [place] [address] - [address] [facility] [phone] [facility] [address] [address] [facility] [phone] [facility] [address] [facility] [address] e- [facility]/pharmacy #[id number] [place] [address] - [address] - [phone] [place] [id number] [address] [facility] [address] Estimated Creatinine Clearance: 104.4 mL/min (based on [...] Date(s) Administered COVID-19 vaccine, age 12+ yr ([employer] - PURPLE TOP) 05/25/2020 06/15/2020 01/21/2021 Influenza Seasonal Inj Age 3+ 12/06/2013 12/06/2013 Tdap (Age 7+) 07/25/2018 Additional follow up: Appointments for Next 60 Days Date Time Provider Location Dept Phone 10/06/2021 12:30 PM SURGICAL REGISTRATION 1 10/09/2021 8:45 AM LAB PORT/FLORES GALLAGHER 1 Mn CA Bldg [phone] 10/09/2021 9:45 AM [facility] C[facility] CA Bldg [phone] 10/09/2021 9:45 AM GODFREY OHARA Mn CA Bldg [phone] 10/09/2021 10:15 AM CHAIR 8 /MELANOMA/SARCOMA Mn CA Bldg [phone] 10/20/2021 11:30 AM TYRONE LISA Mn J Bldg [phone] 10/23/2021 8:40 AM MRI 6 RADIO MAIN Q (I-STAT/1.5T/3T) Mn Q Bldg [phone] 10/23/2021 9:[address] PREP MAIN CA Mn CA Bldg [phone] 10/23/2021 10:[address] MAIN CA Mn CA Bldg [phone] 10/23/2021 11:30 AM LAB PORT/[place] MAIN CA 1 Mn CA Bldg [phone] 10/23/2021 1:30 PM KENNETH CHESTER Mn CA Bldg [phone] 10/23/2021 1:30 PM GODFREY CLAYTON Mn CA Bldg [phone] 10/27/2021 11:30 AM PACC MAIN 2 Mn A Bldg [phone] 10/27/2021 12:30 PM ADMIT INTERVIEW A12 PSSC A Bldg 10/27/2021 1:00 PM LAB A15 MAIN Mn A Bldg [phone] 10/27/2021 1:30 PM EKG17 MAIN Mn A Bldg [phone] 11/01/2021 11:00 AM LAB [facility] [phone] Interventions Made: Patient education/Medication counseling, Adherence counseling and Medication access issue resolved Pharmacist Recommendations Made Lab request/Therapeutic drug monitoring Care Coordination: None at this time Time spent on patient: 60-75 minutes Safia Carr RPh September 29, 2021 7:19 AM documented in this encounterBarney Children'S Medical Center07-22-2022 NotePromedica Bay Park [facility]07-22-2022 NotePromedica [facility] Hospital07-21-2022 NotePromedica [facility]07-20-2022 NotePromedica [facility]07-19-2022 Note [facility]07-18-2022 NotePromedica [facility] Hospital07-18-2022 History of Present illness Narrative* Riccardo Hatfield PA-C - 09/22/2021 12:00 PM EDT Images from the original note were not included. Heart [facility] V[facility]it[facility] Department of Cardiovascular Medicine SECTION OF CLINICAL CARDIOLOGY OUTPATIENT VISIT DATE September 22, 2021 OUTPATIENT VISIT TYPE ESTABLISHED PRIMARY CARE PHYSICIAN: Daksha Turner ([facility]) [address] [place] [address] REFERRING PHYSICIAN: Angela Khan [phone] [facility] [address] CHIEF COMPLAINT: Established Pt Hospital Follow Up HISTORY OF PRESENT ILLNESS: Mr. Yanez is a 56 year old male who presents today for a cardiovascular medicine follow-up visit. Pt is an established pt of Dr. Black Pt has a past medical history of: 1. Clear-cell renal carcinoma with metastases to the lung.Currently patient is enrolled in clinicaltrial (Started cabo + nivo on [facility] 182 on 08/08/2021 for Cyto-KIK; TRIAL (CYTO [...] UNDETERMINED ABNORMAL ECG Confirmed by MARILIA LITTLE ([id number]), editorial project manager CORBIN [place] ([id number]) on 09/03/2021 11:29:20 AM Complete Results Last CT Result Conclusion CT CHEST W IVCON PE Exam End: 09/02/2021 4:24 PM (Final result) Impression: IMPRESSION: 1. No CT evidence of pulmonary embolism. 2. Little change in CT appearance of the chest since the exam dated 08/17/2021. Again demonstrated is an expansile soft tissue mass of the right anterolateral chest wall consistent with osseous metastasis. Fast Food Supervisor: [facility] Transcribe Date/Time: Sep 02 2021 4:28P Dictated [...] with more than 50% of the total llse-qc-bmwf time of the visit in counseling / coordination of care. CONTACT INFORMATION: Riccardo Hatfield PA-C September 22, 2021 documented in this encounterBarney Children'S Medical Center07-15-2022 Miscellaneous Notes* Telephone Encounter - Rahul Knight RN - 09/19/2021 9:31 AM EDT [id number] 3100, Cyto-KIK; TRIAL (CYTO reductive surgery in Kidney cancer plus Immunotherapy (nivolumab) and targeted Kinase inhibition (cabozantinib) Pt called to report that he's been experiencing diarrhea (approx 6 episodes per day) accompanied bystomach pain, x 2 days. Instructed the pt to begin taking Imodium as needed, and to drink extra fluids to prevent dehydration. Pt verbalized understanding. Sent a follow up streamOncet message to the pt.Also reached out to Dr. Chester to inform him of new symptoms, recommendations made to pt, and to inquire whether further action is needed. Will call pt back with any new instructions from Dr. Chester. Fazal Knight RN, BSN documented in this encounterBarney Children'S Medical Center07-12-2022 Miscellaneous Notes* Telephone Encounter - Rahul Knight RN - 09/16/2021 2:53 PM EDT IRB#: [id number], [facility]# [id number], [...] symptoms. [place] Sharma, RN documented in this encounterBarney Children'S Medical Center07-12-2022 Miscellaneous Notes* Telephone Encounter - Rahul Knight RN - 09/16/2021 9:45 AM EDT IRB#: [id number], [facility]# [facility] [id number], Cyto-KIK; [...] Fazal Knight RN, BSN documented in this encounterBarney Children'S Medical Center07-07-2022 NotePromedica Bay Park Hospital07-07-2022 NotePromedica Bay [facility]07-07-2022 History of Present illness Narrative* Kenneth Chester MD - 09/11/2021 2:03 PM EDT Images from the original note were not included. [facility] Progress Note Oncology Clinic Patient name: Yefri [...] Abs Lymph 1.00 - 4.00 k/uL 1.12 Boulder% % 8.1 Abs [place] <0.87 k/uL 0.53 Eosin% % 0.5 Abs [...] Started treatment with cabo + nivo on [facility] 1820 on 08/08/2021. He has [...] note. Kenneth Chester MD documented in this encounterBarney Children'S Medical Center07-07-2022 Nurse Note* Ariadne Wood RN - 09/11/2021 1:29 PM EDT Additional intake questions: Has the patient had fever, nausea, vomiting, diarrhea, constipation, fatigue for > 1 week? Yes, fatigue and SOB Does the patient have a decreased appetite? No Does patient want to see a Medical Insurance Clerk? No (yes to any of above refer patient to schedulers for dietitian appointment) ) Does patient have any new or increased numbness or tingling of extremities? No Is patient interested in fertility information? No Does patient need any prescription refills? No Does patient have an advanced directive in place? No, Patient referred to Resource Center documented in this encounterBarney Children'S Medical Center07-07-2022 History of Present illness Narrative* Godfrey Clayton RN - 09/11/2021 1:17 PM EDT IRB#: [id number], [facility], Cyto-KIK; TRIAL (CYTO reductive surgery [...] chloride (KLOR-CON) 20 mEq packet Potassium Chloride* ([id number]) 20 MEQ PACKET Active 20 MEQ PO [...] information Godfrey Clayton RN documented in this encounterBarney Children'S Medical Center07-01-2022 Miscellaneous Notes* Telephone Encounter - Marysol Lane RN - 09/05/2021 4:07 PM EDT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 encounterBarney Children'S Medical Center05-16-2022 History of Present illness Narrative* Godfrey Clayton [...] INDEX Godfrey Clayton RN documented in this encounterBarney Children'S Medical Center05-13-2022 NotePromedica Bay Park [facility]05-13-2022 History of Present illness Narrative* Godfrey Ohara APRN.PHOTO MASK PATTERN GENERATOR - 07/18/2021 12:46 PM EDT IRB#: [id number], [facility]# [facility] 0248 Phase: II Cohort: 2 Encounter for Eligibility of IRB# [id number] . Informed Consent signed on 07/14/2021, prior to any study related procedures being performed that are not SOC. PE completed by Godfrey Ohara APRN.PHOTO MASK PATTERN GENERATOR. Was PE completed by a Fellow No [...] 07/15/2021. Not found on examination by KEYUR Mann.PHOTO MASK PATTERN GENERATOR. Concurrent uncontrolled hypertension defined as sustained BP [...] on 07/15/2021 24. Active central nervous system (TECHNICAL SALES ADVISOR) metastases Patient denied on 07/15/2021. No metastases [...] chloride (KLOR-CON) 20 mEq packet Potassium Chloride* ([id number]) 20 MEQ PACKET Active 20 MEQ PO [...] RTC on 07/24/2021 for Day 1 of [facility] 1820 Study. Godfrey Ohara APRN.CNP documented in this encounterBarney [facility]05-10-2022 NoteProm[facility]-10-2022 NoteProm[facility]05-10-2022 NoteProm[facility]05-10-2022 NoteProm[facility]05-09-2022 Note [facility]05-[facility]-2022 [facility]Prom[facility]05-09-2022 History of Present illness Narrative* Rahul [...] informed consent. Time: 1530 Godfrey Ohara APRN, PHOTO MASK PATTERN GENERATOR [place] Sharma, RN * Godfrey Ohara APRN.BEATRICE - 07/14/2021 3:55 PM EDT Saw patient today for RN consent visit for [facility] 1820. Wrote for Ativan 1 mg as needed prior to MRI Kidney and MRI brain. Godfery Ohara APRN.CNP Research SCOTT documented in this encounterBarney Children'S Medical Center05-09-2022 Nurse Note* Ariadne Wood RN - 07/14/2021 2:41 PM EDT Additional intake questions: Has the patient had fever, nausea, vomiting, diarrhea, constipation, fatigue for > 1 week? Yes, fatigue Does the patient have a decreased appetite? No Does patient want to see a Medical Insurance Clerk? No (yes to any of above refer patient to schedulers for dietitian appointment) ) Does patient have any new or increased numbness or tingling of extremities? No Is patient interested in fertility information? No Does patient need any prescription refills? No Does patient have an advanced directive in place? No, Patient referred to [facility] documented in this encounterBarney Children'S [facility] Center05-06-2022 Miscellaneous Notes* Telephone Encounter - [...] understanding. Godfrey Clayton RN documented in this encounterBarney Children'S Medical Center05-06-2022 Miscellaneous Notes* Telephone Encounter - [...] understanding. Godfrey Clayton RN documented in this encounterBarney Children'S Medical Center05-03-2022 NotePromedica [facility]05-03-2022 History of Present illness Narrative* Godfrey Clayton RN - 07/08/2021 3:51 PM EDT Informed Consent Presentation IRB# [id number] Title: [facility] 1820, Cyto-KIK; TRIAL (CYTO reductive [...] 1500 Godfrey Clayton RN documented in this encounterBarney Children'S Medical Center05-02-2022 Miscellaneous Notes* Telephone Encounter - Godfrey Clayton [...] understanding. Godfrey Clayton RN documented in this encounterBarney Children'S Medical Center04-27-2022 NotePromedica Bay [facility]04-27-2022 History of Present illness Narrative* Kenneth Chester MD - 07/02/2021 12:00 PM EDT Images from the original note were not included. 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 Will await biopsy prior to discussing next steps. Patient has our office contact information and knows how to reach us at any time with questions/concerns or if clinical condition changes. Kenneth Chester MD MA Associate Staff [facility] July 02, 2021 CC: Adriana Hodge MD documented in this encounterBarney Children'S Medical Center04-27-2022 Nurse Note* Ariadne Wood RN - 07/02/2021 11:52 AM EDT Additional intake questions: Has the patient had fever, nausea, vomiting, diarrhea, constipation, fatigue for > 1 week? No Does the patient have a decreased appetite? No Does patient want to see a Medical Insurance Clerk? No (yes to any of above refer patient to schedulers for dietitian appointment) ) Does patient have any new or increased numbness or tingling of extremities? No Is patient interested in fertility information? No Does patient need any prescription refills? No Does patient have an advanced directive in place? No, Patient referred to [facility] documented in this encounterBarney Children'S Medical Center04-26-2022 NotePromedica [facility]04-25-2022 NotePromedica [facility]04-25-2022 History of Present illness Narrative* RT Dimas(Damion) - 06/30/2021 7:45 AM EDT RADIOLOGY SERVICE [...] 725 PATIENT DISCHARGED TO: Ambulatory patient, left [place] department area. A Diagnostic radioactive procedure has taken place, with no further precautions necessary other than routine body substance precautions. More information regarding radiation safety can be found usingthis link: [email or web address] SIGNATURE: RT Dimas(R) PATIENT NAME: Yefri Yanez DATE: June 30, 2021 TIME: 7:45 AM PAGER/CONTACT #: [phone] documented in this encounterBarney Children'S Medical Center04-22-2022 NotePromedica Bay Park Hospital04-22-2022 History of Present illness Narrative* TOÑO DuganR) - 06/27/2021 3:00 PM EDT Radiology Service [...] DEPARTMENT: CT; Exam(s) Completed: Abdomen/Pelvis SIGNATURE: RT aKilee(R) PATIENT NAME: Yefri Yanez DATE: June 27, 2021 TIME: 1:57 PM documented in this encounterBarney Children'S Medical Center04-19-2022 Miscellaneous Notes* Telephone Encounter - John Gtz [...] this procedure: low risk. Reference from [employer]: https://ccf.policyNomios.com/dotNet/documents/?rqpfr=[email or web address] STAFF SIGNATURE: John Gtz MD DATE: June 24, 2021 TIME: 8:32 AM * Telephone Encounter - Yandy Muñoz RN - 06/23/2021 4:44 PM EDT BX. COORDINATOR INFORMATION LAB RESULTS: No results found for: INR No results found for: APTT Platelet Count (k/uL) Date Value 06/20/2021 268 11/06/2019 288 Current Outpatient Medications Medication Sig potassium chloride (KLOR-CON) 20 mEq packet Potassium Chloride* ([id number]) 20 MEQ PACKET Active 20 MEQ PO [...] 4:26 PM EDT RADIOLOGY CALL CENTER INTAKE CONTROL TECHNICIAN: IRMA EVANS EXT: [id number] DATE: 06/23/2021 TIME: 4:27PM TRACKING #. [id number] REQUESTING PERSON: LILIAM PHONE/PAGER: [phone] REQUESTING STAFF: Adriana Hodge MD PHONE/PAGER: [phone] SPECIFICS OF THE REQUEST: (Please be as [...] for pathology (For example: send for ER, AL, HER2/silas or possible lymphoma send in RPMI [...] EVALUATE APPROPRIATENESS/FEASIBILITY OF THE REQUEST) IMAGING: OUTSIDE [facility] Films: Where is study now: UPLOADED IN PATIENTS CHART (If the imaging was obtained outside the [facility] system, then it needs to be submitted for review prior to approval.) Note to all persons requesting biopsies: All biopsy requests will be scheduled as quickly as possible, based on the clinical urgency, availability of appointment times, the need to hold anti-thrombolytic therapy (aspirin, blood thinners) and the patient s schedule, including the need for an available school bus driver. If a percutaneous biopsy or drainage is not felt to be safe or an alternative method for establishing a diagnosis is possible, this will be discussed directly with the requesting physician. 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 [place] Residence:[place] Review of Systems: No CP, No SOB, no CVA, no TIA, No AK No claudication Skin: Rash: denies Lump or mass: denies HEENT: Problems with hearing: denies Double vision or blurred vision: denies Difficulty swallowing: denies Neck: Mass or LN enlargement: denies Pain: denies Chest: SOB: denies Cough: denies Coughing blood: denies Hx pneumonia: denies CVS: Dyspnea on exertion: denies Chest pain: denies Palpitations: denies Hx heart disease, valvular disease: denies Hx AK: denies GI: Nausea or vomiting: denies Abd [...] which included preparing to see the patient, [id number] patient care, completing clinical documentation and counseling [...] Scribe Attestation: By signing my name below, IRenan, attest that this documentation has been prepared under the direction and in the presence of Dr. Adriana Hodge MD. Electronically Signed:gabrielle Rader, June 23, 2021 9:56 AM Provider Attestation: IAdriana MD, personally performed the services described in this documentation. All medical record entries made by the scribe were at my direction and in my presence. I have reviewed thechart and discharge instructions (if applicable) and agree that the record reflects my personal perf ormance and is accurate and complete. Adriana Hodge MD June 23, 2021 11:36 AM documented in this encounterBarney Children'S Medical Center04-18-2022 Miscellaneous Notes* Telephone Encounter - Dawit Urbina MD - 06/23/2021 8:48 AM EDT Spoke with Patient ID by Relayed to patient CBC and CMP without concern. Patient aware to follow up with Dr. Hodge at 11:00 AM today. Dawit Urbina MD documented in this encounterBarney Children'S Medical Center04-15-[address] History of Past illness Narrative* Problem Noted Date Resolved Date Essential hypertension, benign 06/30/2004 0 03/12/2008 ROUTINE MEDICAL EXAM 06/30/2004 11/26/2014 CHEST PAIN NOS 06/30/2004 11/26/2014 documented as of this encounter (statuses as of 06/23/2021) [address] History of Past illness Narrative* Problem Noted Date Resolved Date Essential hypertension, benign 06/30/2004 0 03/12/2008 ROUTINE MEDICAL EXAM 06/30/2004 11/26/2014 CHEST PAIN NOS 06/30/2004 11/26/2014 documented as of this encounter (statuses as of 06/23/2021) [address]25[address] History of Past illness Narrative* Problem Noted Date Resolved Date Essential hypertension, benign 06/30/2004 0 03/12/2008 ROUTINE MEDICAL EXAM 06/30/2004 11/26/2014 CHEST PAIN NOS 06/30/2004 11/26/2014 documented as of this encounter (statuses as of 06/24/2021) [address]25[address] History of Past illness Narrative* Problem Noted Date Resolved Date Essential hypertension, benign 06/30/2004 0 03/12/2008 ROUTINE MEDICAL EXAM 06/30/2004 11/26/2014 CHEST PAIN NOS 06/30/2004 11/26/2014 documented as of this encounter (statuses as of 06/26/2021) [address]25-[address] History of Past illness Narrative* Problem Noted Date Resolved Date Essential hypertension, benign 06/30/2004 0 03/12/2008 ROUTINE MEDICAL EXAM 06/30/2004 11/26/2014 CHEST PAIN NOS 06/30/2004 11/26/2014 documented as of this encounter (statuses as of 06/28/2021) [address]25-[address] History of Past illness Narrative* Problem Noted Date Resolved Date Essential hypertension, benign 06/30/2004 0 03/12/2008 ROUTINE MEDICAL EXAM 06/30/2004 11/26/2014 CHEST PAIN NOS 06/30/2004 11/26/2014 documented as of this encounter (statuses as of 06/28/2021) [place] [id number] History of Past illness Narrative* Problem Noted Date Resolved Date Essential hypertension, benign 06/30/2004 0 03/12/2008 ROUTINE MEDICAL EXAM 06/30/2004 11/26/2014 CHEST PAIN NOS 06/30/2004 11/26/2014 documented as of this encounter (statuses as of 07/01/2021) [address] History of Past illness Narrative* Problem Noted Date Resolved Date Essential hypertension, benign 06/30/2004 0 03/12/2008 ROUTINE MEDICAL EXAM 06/30/2004 11/26/2014 CHEST PAIN NOS 06/30/2004 11/26/2014 documented as of this encounter (statuses as of 07/01/2021) [address] History of Past illness Narrative* Problem Noted Date Resolved Date Essential hypertension, benign 06/30/2004 0 03/12/2008 ROUTINE MEDICAL EXAM 06/30/2004 11/26/2014 CHEST PAIN NOS 06/30/2004 11/26/2014 documented as of this encounter (statuses as of 07/04/2021) [address] History of Past illness Narrative* Problem Noted Date Resolved Date Essential hypertension, benign 06/30/2004 0 03/12/2008 ROUTINE MEDICAL EXAM 06/30/2004 11/26/2014 CHEST PAIN NOS 06/30/2004 11/26/2014 documented as of this encounter (statuses as of 07/07/2021) [address] History of Past illness Narrative* Problem Noted Date Resolved Date Essential hypertension, benign 06/30/2004 0 03/12/2008 ROUTINE MEDICAL EXAM 06/30/2004 11/26/2014 CHEST PAIN NOS 06/30/2004 11/26/2014 documented as of this encounter (statuses as of 07/08/2021) [address] History of Past illness Narrative* Problem Noted Date Resolved Date Essential hypertension, benign 06/30/2004 0 03/12/2008 ROUTINE MEDICAL EXAM 06/30/2004 11/26/2014 CHEST PAIN NOS 06/30/2004 11/26/2014 documented as of this encounter (statuses as of 07/11/2021) [address] History of Past illness Narrative* Problem Noted Date Resolved Date Essential hypertension, benign 06/30/2004 0 03/12/2008 ROUTINE MEDICAL EXAM 06/30/2004 11/26/2014 CHEST PAIN NOS 06/30/2004 11/26/2014 documented as of this encounter (statuses as of 07/11/2021) [address] History of Past illness Narrative* Problem Noted Date Resolved Date Essential hypertension, benign 06/30/2004 0 03/12/2008 ROUTINE MEDICAL EXAM 06/30/2004 11/26/2014 CHEST PAIN NOS 06/30/2004 11/26/2014 documented as of this encounter (statuses as of 07/11/2021) [address] History of Past illness Narrative* Problem Noted Date Resolved Date Essential hypertension, benign 06/30/2004 0 03/12/2008 ROUTINE MEDICAL EXAM 06/30/2004 11/26/2014 CHEST PAIN NOS 06/30/2004 11/26/2014 documented as of this encounter (statuses as of 07/14/2021) [address] History of Past illness Narrative* Problem Noted Date Resolved Date Essential hypertension, benign 06/30/2004 0 03/12/2008 ROUTINE MEDICAL EXAM 06/30/2004 11/26/2014 CHEST PAIN NOS 06/30/2004 11/26/2014 documented as of this encounter (statuses as of 07/15/2021) [address] History of Past illness Narrative* Problem Noted Date Resolved Date Essential hypertension, benign 06/30/2004 0 03/12/2008 ROUTINE MEDICAL EXAM 06/30/2004 11/26/2014 CHEST PAIN NOS 06/30/2004 11/26/2014 documented as of this encounter (statuses as of 07/15/2021) [address] History of Past illness Narrative* Problem Noted Date Resolved Date Essential hypertension, benign 06/30/2004 0 03/12/2008 ROUTINE MEDICAL EXAM 06/30/2004 11/26/2014 CHEST PAIN NOS 06/30/2004 11/26/2014 documented as of this encounter (statuses as of 07/21/2021) [address] History of Past illness Narrative* Problem Noted Date Resolved Date Essential hypertension, benign 06/30/2004 0 03/12/2008 ROUTINE MEDICAL EXAM 06/30/2004 11/26/2014 CHEST PAIN NOS 06/30/2004 11/26/2014 documented as of this encounter (statuses as of 07/21/2021) [address] History of Past illness Narrative* Problem Noted Date Resolved Date Essential hypertension, benign 06/30/2004 0 03/12/2008 ROUTINE MEDICAL EXAM 06/30/2004 11/26/2014 CHEST PAIN NOS 06/30/2004 11/26/2014 documented as of this encounter (statuses as of 07/21/2021) [address] History of Past illness Narrative* Problem Noted Date Resolved Date Essential hypertension, benign 06/30/2004 0 03/12/2008 ROUTINE MEDICAL EXAM 06/30/2004 11/26/2014 CHEST PAIN NOS 06/30/2004 11/26/2014 documented as of this encounter (statuses as of 07/22/2021) [address] History of Past illness Narrative* Problem Noted Date Resolved Date Essential hypertension, benign 06/30/2004 0 03/12/2008 ROUTINE MEDICAL EXAM 06/30/2004 11/26/2014 CHEST PAIN NOS 06/30/2004 11/26/2014 documented as of this encounter (statuses as of 07/22/2021) [address] History of Past illness Narrative* Problem Noted Date Resolved Date Essential hypertension, benign 06/30/2004 0 03/12/2008 ROUTINE MEDICAL EXAM 06/30/2004 11/26/2014 CHEST PAIN NOS 06/30/2004 11/26/2014 documented as of this encounter (statuses as of 07/23/2021) [address] History of Past illness Narrative* Problem Noted Date Resolved Date Essential hypertension, benign 06/30/2004 0 03/12/2008 ROUTINE MEDICAL EXAM 06/30/2004 11/26/2014 CHEST PAIN NOS 06/30/2004 11/26/2014 documented as of this encounter (statuses as of 07/24/2021) [address] History of Past illness Narrative* Problem Noted Date Resolved Date Essential hypertension, benign 06/30/2004 0 03/12/2008 ROUTINE MEDICAL EXAM 06/30/2004 11/26/2014 CHEST PAIN NOS 06/30/2004 11/26/2014 documented as of this encounter (statuses as of 07/24/2021) [address] History of Past illness Narrative* Problem Noted Date Resolved Date Essential hypertension, benign 06/30/2004 0 03/12/2008 ROUTINE MEDICAL EXAM 06/30/2004 11/26/2014 CHEST PAIN NOS 06/30/2004 11/26/2014 documented as of this encounter (statuses as of 07/25/2021) [address] History of Past illness Narrative* Problem Noted Date Resolved Date Essential hypertension, benign 06/30/2004 0 03/12/2008 ROUTINE MEDICAL EXAM 06/30/2004 11/26/2014 CHEST PAIN NOS 06/30/2004 11/26/2014 documented as of this encounter (statuses as of 07/25/2021) [address] History of Past illness Narrative* Problem Noted Date Resolved Date Essential hypertension, benign 06/30/2004 0 03/12/2008 ROUTINE MEDICAL EXAM 06/30/2004 11/26/2014 CHEST PAIN NOS 06/30/2004 11/26/2014 documented as of this encounter (statuses as of 07/28/2021) [address] History of Past illness Narrative* Problem Noted Date Resolved Date Essential hypertension, benign 06/30/2004 0 03/12/2008 ROUTINE MEDICAL EXAM 06/30/2004 11/26/2014 CHEST PAIN NOS 06/30/2004 11/26/2014 documented as of this encounter (statuses as of 07/29/2021) [address] History of Past illness Narrative* Problem Noted Date Resolved Date Essential hypertension, benign 06/30/2004 0 03/12/2008 ROUTINE MEDICAL EXAM 06/30/2004 11/26/2014 CHEST PAIN NOS 06/30/2004 11/26/2014 documented as of this encounter (statuses as of 07/29/2021) [address] History of Past illness Narrative* Problem Noted Date Resolved Date Essential hypertension, benign 06/30/2004 0 03/12/2008 ROUTINE MEDICAL EXAM 06/30/2004 11/26/2014 CHEST PAIN NOS 06/30/2004 11/26/2014 documented as of this encounter (statuses as of 07/30/2021) [address] History of Past illness Narrative* Problem Noted Date Resolved Date Essential hypertension, benign 06/30/2004 0 03/12/2008 ROUTINE MEDICAL EXAM 06/30/2004 11/26/2014 CHEST PAIN NOS 06/30/2004 11/26/2014 documented as of this encounter (statuses as of 07/31/2021) [place] [id number] History of Past illness Narrative* Problem Noted Date Resolved Date Essential hypertension, benign 06/30/2004 0 03/12/2008 ROUTINE MEDICAL EXAM 06/30/2004 11/26/2014 CHEST PAIN NOS 06/30/2004 11/26/2014 documented as of this encounter (statuses as of 08/03/2021) [address] History of Past illness Narrative* Problem Noted Date Resolved Date Essential hypertension, benign 06/30/2004 0 03/12/2008 ROUTINE MEDICAL EXAM 06/30/2004 11/26/2014 CHEST PAIN NOS 06/30/2004 11/26/2014 documented as of this encounter (statuses as of 08/06/2021) [address] History of Past illness Narrative* Problem Noted Date Resolved Date Essential hypertension, benign 06/30/2004 0 03/12/2008 ROUTINE MEDICAL EXAM 06/30/2004 11/26/2014 CHEST PAIN NOS 06/30/2004 11/26/2014 documented as of this encounter (statuses as of 08/06/2021) [address] History of Past illness Narrative* Problem Noted Date Resolved Date Essential hypertension, benign 06/30/2004 0 03/12/2008 ROUTINE MEDICAL EXAM 06/30/2004 11/26/2014 CHEST PAIN NOS 06/30/2004 11/26/2014 documented as of this encounter (statuses as of 08/07/2021) [address] History of Past illness Narrative* Problem Noted Date Resolved Date Essential hypertension, benign 06/30/2004 0 03/12/2008 ROUTINE MEDICAL EXAM 06/30/2004 11/26/2014 CHEST PAIN NOS 06/30/2004 11/26/2014 documented as of this encounter (statuses as of 08/08/2021) [address] History of Past illness Narrative* Problem Noted Date Resolved Date Essential hypertension, benign 06/30/2004 0 03/12/2008 ROUTINE MEDICAL EXAM 06/30/2004 11/26/2014 CHEST PAIN NOS 06/30/2004 11/26/2014 documented as of this encounter (statuses as of 08/08/2021) [address] History of Past illness Narrative* Problem Noted Date Resolved Date Essential hypertension, benign 06/30/2004 0 03/12/2008 ROUTINE MEDICAL EXAM 06/30/2004 11/26/2014 CHEST PAIN NOS 06/30/2004 11/26/2014 documented as of this encounter (statuses as of 08/08/2021) [address] History of Past illness Narrative* Problem Noted Date Resolved Date Essential hypertension, benign 06/30/2004 0 03/12/2008 ROUTINE MEDICAL EXAM 06/30/2004 11/26/2014 CHEST PAIN NOS 06/30/2004 11/26/2014 documented as of this encounter (statuses as of 08/08/2021) [address] History of Past illness Narrative* Problem Noted Date Resolved Date Essential hypertension, benign 06/30/2004 0 03/12/2008 ROUTINE MEDICAL EXAM 06/30/2004 11/26/2014 CHEST PAIN NOS 06/30/2004 11/26/2014 documented as of this encounter (statuses as of 08/11/2021) [address] History of Past illness Narrative* Problem Noted Date Resolved Date Essential hypertension, benign 06/30/2004 0 03/12/2008 ROUTINE MEDICAL EXAM 06/30/2004 11/26/2014 CHEST PAIN NOS 06/30/2004 11/26/2014 documented as of this encounter (statuses as of 08/12/2021) [address] History of Past illness Narrative* Problem Noted Date Resolved Date Essential hypertension, benign 06/30/2004 0 03/12/2008 ROUTINE MEDICAL EXAM 06/30/2004 11/26/2014 CHEST PAIN NOS 06/30/2004 11/26/2014 documented as of this encounter (statuses as of 08/12/2021) [address] History of Past illness Narrative* Problem Noted Date Resolved Date Essential hypertension, benign 06/30/2004 0 03/12/2008 ROUTINE MEDICAL EXAM 06/30/2004 11/26/2014 CHEST PAIN NOS 06/30/2004 11/26/2014 documented as of this encounter (statuses as of 08/13/2021) [address] History of Past illness Narrative* Problem Noted Date Resolved Date Essential hypertension, benign 06/30/2004 0 03/12/2008 ROUTINE MEDICAL EXAM 06/30/2004 11/26/2014 CHEST PAIN NOS 06/30/2004 11/26/2014 documented as of this encounter (statuses as of 08/18/2021) [address] History of Past illness Narrative* Problem Noted Date Resolved Date Essential hypertension, benign 06/30/2004 0 03/12/2008 ROUTINE MEDICAL EXAM 06/30/2004 11/26/2014 CHEST PAIN NOS 06/30/2004 11/26/2014 documented as of this encounter (statuses as of 08/18/2021) [address] History of Past illness Narrative* Problem Noted Date Resolved Date Essential hypertension, benign 06/30/2004 0 03/12/2008 ROUTINE MEDICAL EXAM 06/30/2004 11/26/2014 CHEST PAIN NOS 06/30/2004 11/26/2014 documented as of this encounter (statuses as of 08/18/2021) [address] History of Past illness Narrative* Problem Noted Date Resolved Date Essential hypertension, benign 06/30/2004 0 03/12/2008 ROUTINE MEDICAL EXAM 06/30/2004 11/26/2014 CHEST PAIN NOS 06/30/2004 11/26/2014 documented as of this encounter (statuses as of 08/19/2021) [address] History of Past illness Narrative* Problem Noted Date Resolved Date Essential hypertension, benign 06/30/2004 0 03/12/2008 ROUTINE MEDICAL EXAM 06/30/2004 11/26/2014 CHEST PAIN NOS 06/30/2004 11/26/2014 documented as of this encounter (statuses as of 08/19/2021) [address] History of Past illness Narrative* Problem Noted Date Resolved Date Essential hypertension, benign 06/30/2004 0 03/12/2008 ROUTINE MEDICAL EXAM 06/30/2004 11/26/2014 CHEST PAIN NOS 06/30/2004 11/26/2014 documented as of this encounter (statuses as of 08/20/2021) [address] History of Past illness Narrative* Problem Noted Date Resolved Date Essential hypertension, benign 06/30/2004 0 03/12/2008 ROUTINE MEDICAL EXAM 06/30/2004 11/26/2014 CHEST PAIN NOS 06/30/2004 11/26/2014 documented as of this encounter (statuses as of 08/21/2021) [address] History of Past illness Narrative* Problem Noted Date Resolved Date Essential hypertension, benign 06/30/2004 0 03/12/2008 ROUTINE MEDICAL EXAM 06/30/2004 11/26/2014 CHEST PAIN NOS 06/30/2004 11/26/2014 documented as of this encounter (statuses as of 08/27/2021) [address] History of Past illness Narrative* Problem Noted Date Resolved Date Essential hypertension, benign 06/30/2004 0 03/12/2008 ROUTINE MEDICAL EXAM 06/30/2004 11/26/2014 CHEST PAIN NOS 06/30/2004 11/26/2014 documented as of this encounter (statuses as of 08/28/2021) [address] History of Past illness Narrative* Problem Noted Date Resolved Date Essential hypertension, benign 06/30/2004 0 03/12/2008 ROUTINE MEDICAL EXAM 06/30/2004 11/26/2014 CHEST PAIN NOS 06/30/2004 11/26/2014 documented as of this encounter (statuses as of 09/01/2021) [address] History of Past illness Narrative* Problem Noted Date Resolved Date Essential hypertension, benign 06/30/2004 0 03/12/2008 ROUTINE MEDICAL EXAM 06/30/2004 11/26/2014 CHEST PAIN NOS 06/30/2004 11/26/2014 documented as of this encounter (statuses as of 09/02/2021) [address] History of Past illness Narrative* Problem Noted Date Resolved Date Essential hypertension, benign 06/30/2004 0 03/12/2008 ROUTINE MEDICAL EXAM 06/30/2004 11/26/2014 CHEST PAIN NOS 06/30/2004 11/26/2014 documented as of this encounter (statuses as of 09/03/2021) [address] History of Past illness Narrative* Problem Noted Date Resolved Date Essential hypertension, benign 06/30/2004 0 03/12/2008 ROUTINE MEDICAL EXAM 06/30/2004 11/26/2014 CHEST PAIN NOS 06/30/2004 11/26/2014 documented as of this encounter (statuses as of 09/03/2021) [address] History of Past illness Narrative* Problem Noted Date Resolved Date Essential hypertension, benign 06/30/2004 0 03/12/2008 ROUTINE MEDICAL EXAM 06/30/2004 11/26/2014 CHEST PAIN NOS 06/30/2004 11/26/2014 documented as of this encounter (statuses as of 09/03/2021) [address] History of Past illness Narrative* Problem Noted Date Resolved Date Essential hypertension, benign 06/30/2004 0 03/12/2008 ROUTINE MEDICAL EXAM 06/30/2004 11/26/2014 CHEST PAIN NOS 06/30/2004 11/26/2014 documented as of this encounter (statuses as of 09/11/2021) [address] History of Past illness Narrative* Problem Noted Date Resolved Date Essential hypertension, benign 06/30/2004 0 03/12/2008 ROUTINE MEDICAL EXAM 06/30/2004 11/26/2014 CHEST PAIN NOS 06/30/2004 11/26/2014 documented as of this encounter (statuses as of 09/11/2021) [address] History of Past illness Narrative* Problem Noted Date Resolved Date Essential hypertension, benign 06/30/2004 0 03/12/2008 ROUTINE MEDICAL EXAM 06/30/2004 11/26/2014 CHEST PAIN NOS 06/30/2004 11/26/2014 documented as of this encounter (statuses as of 09/16/2021) [address] History of Past illness Narrative* Problem Noted Date Resolved Date Essential hypertension, benign 06/30/2004 0 03/12/2008 ROUTINE MEDICAL EXAM 06/30/2004 11/26/2014 CHEST PAIN NOS 06/30/2004 11/26/2014 documented as of this encounter (statuses as of 09/17/2021) [address]25-2005 History of Past illness Narrative* Problem Noted Date Resolved Date Essential hypertension, benign 06/30/2004 0 03/12/2008 ROUTINE MEDICAL EXAM 06/30/2004 11/26/2014 CHEST PAIN NOS 06/30/2004 11/26/2014 documented as of this encounter (statuses as of 09/19/2021) [address] History of Past illness Narrative* Problem Noted Date Resolved Date Essential hypertension, benign 06/30/2004 0 03/12/2008 ROUTINE MEDICAL EXAM 06/30/2004 11/26/2014 CHEST PAIN NOS 06/30/2004 11/26/2014 documented as of this encounter (statuses as of 09/22/2021) [address] History of Past illness Narrative* Problem Noted Date Resolved Date Essential hypertension, benign 06/30/2004 0 03/12/2008 ROUTINE MEDICAL EXAM 06/30/2004 11/26/2014 CHEST PAIN NOS 06/30/2004 11/26/2014 documented as of this encounter (statuses as of 09/29/2021) [address] History of Past illness Narrative* Problem Noted Date Resolved Date Essential hypertension, benign 06/30/2004 0 03/12/2008 ROUTINE MEDICAL EXAM 06/30/2004 11/26/2014 CHEST PAIN NOS 06/30/2004 11/26/2014 documented as of this encounter (statuses as of 09/29/2021) [address] History of Past illness Narrative* Problem Noted Date Resolved Date Essential hypertension, benign 06/30/2004 0 03/12/2008 ROUTINE MEDICAL EXAM 06/30/2004 11/26/2014 CHEST PAIN NOS 06/30/2004 11/26/2014 documented as of this encounter (statuses as of 09/29/2021) [address] History of Past illness Narrative* Problem Noted Date Resolved Date Essential hypertension, benign 06/30/2004 0 03/12/2008 ROUTINE MEDICAL EXAM 06/30/2004 11/26/2014 CHEST PAIN NOS 06/30/2004 11/26/2014 documented as of this encounter (statuses as of 10/09/2021) [address] History of Past illness Narrative* Problem Noted Date Resolved Date Essential hypertension, benign 06/30/2004 0 03/12/2008 ROUTINE MEDICAL EXAM 06/30/2004 11/26/2014 CHEST PAIN NOS 06/30/2004 11/26/2014 documented as of this encounter (statuses as of 10/13/2021) [address] History of Past illness Narrative* Problem Noted Date Resolved Date Essential hypertension, benign 06/30/2004 0 03/12/2008 ROUTINE MEDICAL EXAM 06/30/2004 11/26/2014 CHEST PAIN NOS 06/30/2004 11/26/2014 documented as of this encounter (statuses as of 10/14/2021) [address] History of Past illness Narrative* Problem Noted Date Resolved Date Essential hypertension, benign 06/30/2004 0 03/12/2008 ROUTINE MEDICAL EXAM 06/30/2004 11/26/2014 CHEST PAIN NOS 06/30/2004 11/26/2014 documented as of this encounter (statuses as of 10/21/2021) [address] History of Past illness Narrative* Problem Noted Date Resolved Date Essential hypertension, benign 06/30/2004 0 03/12/2008 ROUTINE MEDICAL EXAM 06/30/2004 11/26/2014 CHEST PAIN NOS 06/30/2004 11/26/2014 documented as of this encounter (statuses as of 10/21/2021) [address] History of Past illness Narrative* Problem Noted Date Resolved Date Essential hypertension, benign 06/30/2004 0 03/12/2008 ROUTINE MEDICAL EXAM 06/30/2004 11/26/2014 CHEST PAIN NOS 06/30/2004 11/26/2014 documented as of this encounter (statuses as of 10/27/2021) [address] History of Past illness Narrative* Problem Noted Date Resolved Date Essential hypertension, benign 06/30/2004 0 03/12/2008 ROUTINE MEDICAL EXAM 06/30/2004 11/26/2014 CHEST PAIN NOS 06/30/2004 11/26/2014 documented as of this encounter (statuses as of 10/27/2021) [address] History of Past illness Narrative* Problem Noted Date Resolved Date Essential hypertension, benign 06/30/2004 0 03/12/2008 ROUTINE MEDICAL EXAM 06/30/2004 11/26/2014 CHEST PAIN NOS 06/30/2004 11/26/2014 documented as of this encounter (statuses as of 11/03/2021) [address]25-2005 History of Past illness Narrative* Problem Noted Date Resolved Date Essential hypertension, benign 06/30/2004 0 03/12/2008 ROUTINE MEDICAL EXAM 06/30/2004 11/26/2014 CHEST PAIN NOS 06/30/2004 11/26/2014 documented as of this encounter (statuses as of 11/04/2021) [address] History of Past illness Narrative* Problem Noted Date Resolved Date Essential hypertension, benign 06/30/2004 0 03/12/2008 ROUTINE MEDICAL EXAM 06/30/2004 11/26/2014 CHEST PAIN NOS 06/30/2004 11/26/2014 documented as of this encounter (statuses as of 11/06/2021) [address] History of Past illness Narrative* Problem Noted Date Resolved Date Essential hypertension, benign 06/30/2004 0 03/12/2008 ROUTINE MEDICAL EXAM 06/30/2004 11/26/2014 CHEST PAIN NOS 06/30/2004 11/26/2014 documented as of this encounter (statuses as of 11/17/2021) [address] History of Past illness Narrative* Problem Noted Date Resolved Date Essential hypertension, benign 06/30/2004 0 03/12/2008 ROUTINE MEDICAL EXAM 06/30/2004 11/26/2014 CHEST PAIN NOS 06/30/2004 11/26/2014 documented as of this encounter (statuses as of 11/19/2021) [address] History of Past illness Narrative* Problem Noted Date Resolved Date Essential hypertension, benign 06/30/2004 0 03/12/2008 ROUTINE MEDICAL EXAM 06/30/2004 11/26/2014 CHEST PAIN NOS 06/30/2004 11/26/2014 documented as of this encounter (statuses as of 11/21/2021) [address] History of Past illness Narrative* Problem Noted Date Resolved Date Essential hypertension, benign 06/30/2004 0 03/12/2008 ROUTINE MEDICAL EXAM 06/30/2004 11/26/2014 CHEST PAIN NOS 06/30/2004 11/26/2014 documented as of this encounter (statuses as of 11/21/2021) [address] History of Past illness Narrative* Problem Noted Date Resolved Date Essential hypertension, benign 06/30/2004 0 03/12/2008 ROUTINE MEDICAL EXAM 06/30/2004 11/26/2014 CHEST PAIN NOS 06/30/2004 11/26/2014 documented as of this encounter (statuses as of 11/25/2021) [address] History of Past illness Narrative* Problem Noted Date Resolved Date Essential hypertension, benign 06/30/2004 0 03/12/2008 ROUTINE MEDICAL EXAM 06/30/2004 11/26/2014 CHEST PAIN NOS 06/30/2004 11/26/2014 documented as of this encounter (statuses as of 11/29/2021) [address] History of Past illness Narrative* Problem Noted Date Resolved Date Essential hypertension, benign 06/30/2004 0 03/12/2008 ROUTINE MEDICAL EXAM 06/30/2004 11/26/2014 CHEST PAIN NOS 06/30/2004 11/26/2014 documented as of this encounter (statuses as of 12/09/2021) [address] History of Past illness Narrative* Problem Noted Date Resolved Date Essential hypertension, benign 06/30/2004 0 03/12/2008 ROUTINE MEDICAL EXAM 06/30/2004 11/26/2014 CHEST PAIN NOS 06/30/2004 11/26/2014 documented as of this encounter (statuses as of 12/17/2021) [address] History of Past illness Narrative* Problem Noted Date Resolved Date Essential hypertension, benign 06/30/2004 0 03/12/2008 ROUTINE MEDICAL EXAM 06/30/2004 11/26/2014 CHEST PAIN NOS 06/30/2004 11/26/2014 documented as of this encounter (statuses as of 12/27/2021) [address] History of Past illness Narrative* Problem Noted Date Resolved Date Essential hypertension, benign 06/30/2004 0 03/12/2008 ROUTINE MEDICAL EXAM 06/30/2004 11/26/2014 CHEST PAIN NOS 06/30/2004 11/26/2014 documented as of this encounter (statuses as of 12/28/2021) [address] History of Past illness Narrative* Problem Noted Date Resolved Date Essential hypertension, benign 06/30/2004 0 03/12/2008 ROUTINE MEDICAL EXAM 06/30/2004 11/26/2014 CHEST PAIN NOS 06/30/2004 11/26/2014 documented as of this encounter (statuses as of 12/30/2021) [address]25-2005 History of Past illness Narrative* Problem Noted Date Resolved Date Essential hypertension, benign 06/30/2004 0 03/12/2008 ROUTINE MEDICAL EXAM 06/30/2004 11/26/2014 CHEST PAIN NOS 06/30/2004 11/26/2014 documented as of this encounter (statuses as of 12/30/2021) [address]-2005 History of Past illness Narrative* Problem Noted Date Resolved Date Essential hypertension, benign 06/30/2004 0 03/12/2008 ROUTINE MEDICAL EXAM 06/30/2004 11/26/2014 CHEST PAIN NOS 06/30/2004 11/26/2014 documented as of this encounter (statuses as of 01/07/2022) [address]25-2005 History of Past illness Narrative* Problem Noted Date Resolved Date Essential hypertension, benign 06/30/2004 0 03/12/2008 ROUTINE MEDICAL EXAM 06/30/2004 11/26/2014 CHEST PAIN NOS 06/30/2004 11/26/2014 documented as of this encounter (statuses as of 01/20/2022) [address] History of Past illness Narrative* Problem Noted Date Resolved Date Essential hypertension, benign 06/30/2004 0 03/12/2008 ROUTINE MEDICAL EXAM 06/30/2004 11/26/2014 CHEST PAIN NOS 06/30/2004 11/26/2014 documented as of this encounter (statuses as of 01/22/2022) [address] History of Past illness Narrative* Problem Noted Date Resolved Date Essential hypertension, benign 06/30/2004 0 03/12/2008 ROUTINE MEDICAL EXAM 06/30/2004 11/26/2014 CHEST PAIN NOS 06/30/2004 11/26/2014 documented as of this encounter (statuses as of 01/26/2022) [address] History of Past illness Narrative* Problem Noted Date Resolved Date Essential hypertension, benign 06/30/2004 0 03/12/2008 ROUTINE MEDICAL EXAM 06/30/2004 11/26/2014 CHEST PAIN NOS 06/30/2004 11/26/2014 documented as of this encounter (statuses as of 02/12/2022) [address] History of Past illness Narrative* Problem Noted Date Resolved Date Essential hypertension, benign 06/30/2004 0 03/12/2008 ROUTINE MEDICAL EXAM 06/30/2004 11/26/2014 CHEST PAIN NOS 06/30/2004 11/26/2014 documented as of this encounter (statuses as of 02/13/2022) [address] History of Past illness Narrative* Problem Noted Date Resolved Date Essential hypertension, benign 06/30/2004 0 03/12/2008 ROUTINE MEDICAL EXAM 06/30/2004 11/26/2014 CHEST PAIN NOS 06/30/2004 11/26/2014 documented as of this encounter (statuses as of 02/16/2022) [address] History of Past illness Narrative* Problem Noted Date Resolved Date Essential hypertension, benign 06/30/2004 0 03/12/2008 ROUTINE MEDICAL EXAM 06/30/2004 11/26/2014 CHEST PAIN NOS 06/30/2004 11/26/2014 documented as of this encounter (statuses as of 02/17/2022) [address] History of Past illness Narrative* Problem Noted Date Resolved Date Essential hypertension, benign 06/30/2004 0 03/12/2008 ROUTINE MEDICAL EXAM 06/30/2004 11/26/2014 CHEST PAIN NOS 06/30/2004 11/26/2014 documented as of this encounter (statuses as of 02/17/2022) [address] History of Past illness Narrative* Problem Noted Date Resolved Date Essential hypertension, benign 06/30/2004 0 03/12/2008 ROUTINE MEDICAL EXAM 06/30/2004 11/26/2014 CHEST PAIN NOS 06/30/2004 11/26/2014 documented as of this encounter (statuses as of 03/13/2022) [address] History of Past illness Narrative* Problem Noted Date Resolved Date Essential hypertension, benign 06/30/2004 0 03/12/2008 ROUTINE MEDICAL EXAM 06/30/2004 11/26/2014 CHEST PAIN NOS 06/30/2004 11/26/2014 documented as of this encounter (statuses as of 03/13/2022) [address] History of Past illness Narrative* Problem Noted Date Resolved Date Essential hypertension, benign 06/30/2004 0 03/12/2008 ROUTINE MEDICAL EXAM 06/30/2004 11/26/2014 CHEST PAIN NOS 06/30/2004 11/26/2014 documented as of this encounter (statuses as of 03/17/2022) [address] History of Past illness Narrative* Problem Noted Date Resolved Date Essential hypertension, benign 06/30/2004 0 03/12/2008 ROUTINE MEDICAL EXAM 06/30/2004 11/26/2014 CHEST PAIN NOS 06/30/2004 11/26/2014 documented as of this encounter (statuses as of 03/17/2022) [address] History of Past illness Narrative* Problem Noted Date Resolved Date Essential hypertension, benign 06/30/2004 0 03/12/2008 ROUTINE MEDICAL EXAM 06/30/2004 11/26/2014 CHEST PAIN NOS 06/30/2004 11/26/2014 documented as of this encounter (statuses as of 03/23/2022) [address] History of Past illness Narrative* Problem Noted Date Resolved Date Essential hypertension, benign 06/30/2004 0 03/12/2008 ROUTINE MEDICAL EXAM 06/30/2004 11/26/2014 CHEST PAIN NOS 06/30/2004 11/26/2014 documented as of this encounter (statuses as of 03/24/2022) [place] [id number] History of Past illness Narrative* Problem Noted Date Resolved Date Essential hypertension, benign 06/30/2004 0 03/12/2008 ROUTINE MEDICAL EXAM 06/30/2004 11/26/2014 CHEST PAIN NOS 06/30/2004 11/26/2014 documented as of this encounter (statuses as of 03/25/2022) [place] [id number] History of Past illness Narrative* Problem Noted Date Resolved Date Essential hypertension, benign 06/30/2004 0 03/12/2008 ROUTINE MEDICAL EXAM 06/30/2004 11/26/2014 CHEST PAIN NOS 06/30/2004 11/26/2014 documented as of this encounter (statuses as of 03/27/2022) [place] [id number] History of Past illness Narrative* Problem Noted Date Resolved Date Essential hypertension, benign 06/30/2004 0 03/12/2008 ROUTINE MEDICAL EXAM 06/30/2004 11/26/2014 CHEST PAIN NOS 06/30/2004 11/26/2014 documented as of this encounter (statuses as of 04/02/2022) [place] [id number] History of Past illness Narrative* Problem Noted Date Resolved Date Essential hypertension, benign 06/30/2004 0 03/12/2008 ROUTINE MEDICAL EXAM 06/30/2004 11/26/2014 CHEST PAIN NOS 06/30/2004 11/26/2014 documented as of this encounter (statuses as of 04/09/2022) [facility] April 16, 2022 1:56pm Note Date/Time April 16, 2022 1 :41pm [facility] Medical Records Department [address] [place] [address] Discharge Summary 04/16/22 1341 MR#: [id number] Acct: [id number] Name: YEFRI YANEZ Rep #:[id number] 1965 57 From: Carol Chiu DO PCP: Dr. Jose Ramon Turner MD Status: [id number] Prov[facility] Date of Admission: 04/13/22 Date [...] Hospital Course: Mr. 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 Aravind Lopez at [facility]. He doeshave metastatic disease to the bone. 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 He request to see Dr. Gaona however [...] distress and well nourished Constitutional Narrative: Obese, -Ugandan, sitting up on the edge of the [...] Self Care Charges/Coding Visit Charges Inpatient E&M: 09328 Disch Hosp >30min 04/16/22 1355 <Electronically signed by Carol Chiu DO> Cosigner Signature (if applicable): CC: Dr. Jose Ramon Turner MD; Dr. Carol Chiu DO~ Signed [facility] Work Phone: Discharge summary Author Carol Chiu [facility] December 17, 2022 12:20pm Note Date/Time December 17, 2022 1 2:11pm [facility] Medical Records Department [address] [place] [id number] Discharge Summary 12/17/22 1210 MR#: [id number] Acct: [id number] Name: YEFRI YANEZ Rep #:[id number] : 1965 57 From: Carol Chiu DO PCP: Dr. Jose Ramon Turner MD Status: ADM IN [facility] Prov[facility] Date of Admission: 12/16/22 [...] Hospital Course: Mr. Yanez is a 57-year-old -Ugandan male who presented to the emergency department at [facility] on 12/15/2022 with worsening shortness of breath. Patient told the admitting physician that he is supposed to be wearing his oxygen all the time at home however he is only wearing it whenneeded. His oxygen was written for by Dr. Yanez and is to be 3 L [id number]. He does have a history of systolic [...] failure--> home prescription is for 3 L [id number] Atrial fibrillation Hyperlipidemia GERD NIMCO Tobacco abuse Physical Exam Const no apparent distress and well nourished; Negative for average body habitus or healthy appearing Constitutional Narrative: Obese, -Ugandan, male, lying in bed resting comfortably but [...] 71.5 H, Lymph % (Auto) 16.9 L, [place] % (Auto) 9.8, Eos % (Auto) 1.0, [...] Self Care Charges/Coding Visit Charges Inpatient E&M: 80325 Disch Hosp >30min 12/17/22 1220 <Electronically signed by Carol Chiu DO> Cosigner Signature (if applicable): CC: Dr. Jose Ramon Turner MD; Dr. Carol Chiu DO; Dr. Cipriano Yanez MD~ Signed [facility] Work Phone: Evaluation note* Diagnosis Onset Date Resolution Status Mass of chest wall Active [facility] Work Phone: Evaluation note* Diagnosis Malignant neoplasm of kidney, unspecified laterality (HCC)- Primary Malignant neoplasm of kidney excluding renal pelvis, unspecified laterality (HCC) [facility] Diagnosis Mass of right chest wall- Primary [facility]* Diagnosis Screening for genitourinary condition Screening for other and unspecified genitourinary condition Malignant neoplasm of kidney, unspecified laterality (HCC) [facility] Diagnosis Malignant neoplasm of kidney, unspecified laterality (HCC) Malignant neoplasm of kidney excluding renal pelvis, unspecified laterality (HCC) Malignant neoplasm of kidney, unspecified laterality (HCC) [facility]* Diagnosis Malignant neoplasm of kidney, unspecified laterality (HCC) Malignant neoplasm of kidney excluding renal pelvis, unspecified laterality (HCC) [facility] Diagnosis Malignant neoplasm of kidney, unspecified laterality (HCC) Malignant neoplasm of kidney excluding renal pelvis, unspecified laterality (HCC) Chest wall mass Swelling, mass, or lump in chest [facility]* Diagnosis Malignant neoplasm of kidney excluding renal pelvis, unspecified laterality (HCC)- Primary [facility]* Diagnosis Malignant neoplasm of kidney excluding renal pelvis, unspecified laterality (HCC) [facility] Diagnosis Malignant neoplasm of kidney excluding renal pelvis, unspecified laterality (HCC)- Primary Renal cell carcinoma, unspecified laterality (HCC) [facility]* Diagnosis Malignant neoplasm of right kidney, except renal pelvis (HCC)- Primary Malignant neoplasm of kidney, except pelvis [facility]* Diagnosis Anxiety- Primary Anxiety state, unspecified [facility]* Diagnosis Malignant neoplasm of right kidney, except renal pelvis (HCC) Malignant neoplasm of kidney, except pelvis [facility]* Diagnosis Malignant neoplasm of kidney excluding renal pelvis, unspecified laterality (HCC)- Primary [facility]* Diagnosis Malignant neoplasm of right kidney, except renal pelvis (HCC) Malignant neoplasm of kidney, except pelvis Renal cell carcinoma, unspecified laterality (HCC) [facility]* Diagnosis Malignant neoplasm of kidney excluding renal pelvis, unspecified laterality (HCC) Renal cell carcinoma, unspecified laterality (HCC) documented [facility] encounter [facility] noteNo assessment information availableWBrown [facility] Work Phone: Evaluation note* Diagnosis Nonrheumatic mitral valve regurgitation- Primary Cardiomyopathy, nonischemic (HCC) Other primary cardiomyopathies [facility]* Diagnosis Malignant neoplasm of kidney excluding renal pelvis, unspecified laterality (HCC)- Primary Metastatic renal cell carcinoma, unspecified laterality (HCC) [facility]* Diagnosis Renal cell carcinoma, unspecified laterality (HCC)- Primary [facility] Diagnosis Malignant neoplasm of kidney excluding renal pelvis, unspecified laterality (HCC) documented in [facility] Diagnosis Renal cell carcinoma of right kidney (HCC)- Primary [facility] Diagnosis Nonrheumatic mitral valve regurgitation- Primary Nonrheumatic mitral valve regurgitation documented [facility] Diagnosis Renal cell carcinoma, unspecified laterality (HCC)- Primary Hypertension, unspecified type [facility] Diagnosis Renal cell carcinoma of right kidney (HCC)- Primary [facility] Diagnosis Malignant neoplasm of right kidney, except renal pelvis (HCC) Malignant neoplasm of kidney, except pelvis [facility] Diagnosis Renal cell carcinoma, unspecified laterality (HCC)- Primary [facility] Diagnosis Renal cell carcinoma of right kidney (HCC)- Primary [facility] Diagnosis Renal cell carcinoma of right kidney (HCC)- Primary [facility] Diagnosis Other specified disorders of kidney and ureter documented [facility] Diagnosis OPENED IN ERROR- Primary To allow closing an encounter opened in error (used in SmartSet) documented in this encounter [facility] note* Diagnosis Pedal edema- Primary Edema Essential hypertension Unspecified essential hypertension Coronary artery disease involving [place] coronary artery of [place] heart without angina pectoris Disturbance in sleep behavior Sleep disturbance, unspecified [facility] Diagnosis Renal cell carcinoma, unspecified laterality (HCC)- Primary Hypertension, unspecified type [facility] Diagnosis Renal cell carcinoma, unspecified laterality (HCC)- Primary [facility] Diagnosis Malignant neoplasm of kidney excluding renal pelvis, unspecified laterality (HCC) documented [facility] Diagnosis Malignant neoplasm of right kidney, except renal pelvis (HCC)- Primary Malignant neoplasm of kidney, except pelvis [facility]* Diagnosis SOB (shortness of breath)- Primary Shortness of breath Encounter for screening for COVID-19 Renal mass, right Unspecified disorder of kidney and ureter documented [facility] Diagnosis SOB (shortness of breath) Shortness of breath Encounter for screening for COVID-19 Renal mass, right Unspecified disorder of kidney and ureter [facility] Diagnosis SOB (shortness of breath) Shortness of breath Encounter for screening for COVID-19 Renal mass, right Unspecified disorder of kidney and ureter documented [facility] Diagnosis Renal cell carcinoma of right kidney (HCC)- Primary Encounter for screening for COVID-19 Renal mass, right Unspecified disorder of kidney and ureter documented [facility]* Diagnosis Metastatic renal cell carcinoma, unspecified laterality (HCC) Pneumonitis Pneumonia, organism unspecified Atrial fibrillation, unspecified type (HCC) Hypertension, unspecified type Encounter for screening for COVID-19 Renal mass, right Unspecified disorder of kidney and ureter documented [facility] Diagnosis Paroxysmal atrial fibrillation (HCC)- Primary Atrial fibrillation Mitral valve insufficiency, unspecified etiology New onset a-fib (HCC) Atrial fibrillation Essential hypertension Unspecified essential hypertension Mixed hyperlipidemia Coronary artery disease involving [place] coronary artery of [place] heart with angina pectoris (HCC) Encounter for screening for COVID-19 Renal mass, right Unspecified disorder of kidney and ureter documented [facility] this [facility] Diagnosis Paroxysmal atrial fibrillation (HCC)- Primary Atrial fibrillation Encounter for screening for COVID-19 Renal mass, right Unspecified disorder of kidney and ureter documented [facility] this [facility]* Diagnosis Renal cell carcinoma of right kidney (HCC)- Primary Atrial fibrillation, unspecified type (HCC) Encounter for screening for COVID-19 Renal mass, right Unspecified disorder of kidney and ureter [facility] Diagnosis Renal cell carcinoma of right kidney (HCC)- Primary Encounter for screening for COVID-19 Renal mass, right Unspecified disorder of kidney and ureter documented [facility] Diagnosis Preoperative examination- Primary Preoperative examination, [...] Other abnormal glucose Coronary artery disease involving [place] coronary artery of [place] heart, unspecified whether angina present Encounter for screening for COVID-19 Renal mass, right Unspecified disorder of kidney and ureter [facility]* Diagnosis Metastatic renal cell carcinoma, unspecified laterality (HCC)- Primary [facility]* Diagnosis Malignant neoplasm of right kidney, except renal pelvis (HCC) Malignant neoplasm of kidney, except pelvis documented in this encounter [facility] note* Diagnosis Onset Date Resolution Status Atrial fibrillation with RVR acute Hypoxemia acute Systolic CHF, acute acute Acute exacerbation of CHF (congestive heart failure) [facility] Work Phone: Evaluation note* Diagnosis Renal cell carcinoma of right kidney (HCC)- Primary documented in this encounter [facility] note* Diagnosis Renal cell carcinoma of right kidney (HCC)- Primary [facility]* Diagnosis Renal cell carcinoma of right kidney (HCC) documented [facility]* Diagnosis Screening for genitourinary condition Screening for other and unspecified genitourinary condition documented in this encounter [facility] note* Cardiovascular: Regular, rate and rhythm, no [...] induration. Appropriately TTP.Psychological: Appropriate mood and behavior [facility] Diagnosis Renal cell carcinoma of right kidney metastatic to other site (HCC)- Primary Paroxysmal atrial fibrillation (HCC)- Primary Atrial fibrillation Nonrheumatic mitral valve regurgitation Acute decompensated heart failure (HCC) Congestive heart failure, unspecified Essential hypertension Unspecified essential hypertension Tobacco use disorder NIMCO (obstructive sleep apnea) Obstructive sleep apnea (adult) (pediatric) documented in this [facility]* Diagnosis Paroxysmal atrial fibrillation (HCC)- Primary Atrial fibrillation Nonrheumatic mitral valve regurgitation Acute decompensated heart failure (HCC) Congestive heart failure, unspecified Essential hypertension Unspecified essential hypertension Tobacco use disorder NIMCO (obstructive sleep apnea) Obstructive sleep apnea (adult) (pediatric) documented in this encounter [facility] note* Diagnosis Metastatic renal cell carcinoma, unspecified laterality (HCC)- Primary documented in this encounter [facility] note* Diagnosis Renal cell carcinoma of right kidney (HCC)- Primary documented in this encounter [facility] note* Diagnosis Renal cell carcinoma of right kidney (HCC)- Primary documented in this encounter [facility] note* Diagnosis Renal cell carcinoma of right kidney (HCC)- Primary documented in this encounter [facility] note* Diagnosis Malignant neoplasm of right kidney, except renal pelvis (HCC)- Primary Malignant neoplasm of kidney, except pelvis documented in this encounter [facility] note* Diagnosis Onset Date Resolution Status Acute exacerbation of CHF (congestive heart failure) [facility] Work Phone: evaluation note* Diagnosis Onset Date Resolution Status Elevated serum creatinine ac [place] Elevated troponin I level ac [place] Hypoxemia acute Systolic CHF, acute acute Acute exacerbation of CHF (congestive heart failure) [facility] Work Phone: evaluation note* Diagnosis Onset Date Resolution Status Acute exacerbation of CHF (congestive heart failure) resolved Hypoxemia resolved Systolic CHF, acute resolved [facility] Work Phone: Evaluation note* Diagnosis Onset Date Resolution Status Acute exacerbation of CHF (congestive heart failure) resolved Hypoxemia resolved Systolic CHF, acute resolved CHF (congestive heart failure) acute Dyspnea acute [facility] Work Phone: Evaluation note* Diagnosis Onset Date Resolution Status Acute exacerbation of CHF (congestive heart failure) resolved Hypoxemia resolved Systolic CHF, acute resolved CHF (congestive heart failure) acute Dyspnea acute Thrush acute Hypertension [facility] Work Phone: Evaluation note* Diagnosis Onset Date Resolution Status Acute exacerbation of CHF (congestive heart failure) resolved Hypoxemia resolved Systolic CHF, acute resolved Thrush acute CHF (congestive heart failure) resolved Dyspnea resolved Cancer acute Renal failure acute CHF (congestive heart failure) resolved 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 Dyspnea acute [facility] Work Phone: Evaluation note* Diagnosis Onset Date [...] chronic Metastatic renal cell carcinoma to bone [facility] Work Phone: Evaluation note* Diagnosis Onset [...] carcinoma to bone chronic Renal cell cancer [facility] Work Phone: Evaluation note* Diagnosis Onset [...] chronic systolic heart failure chronic Chronic a-fib [facility] Work Phone: Evaluation note* Diagnosis Onset Date Resolution Status Renal failure acute CHF (congestive heart failure) resolved Acute on chronic renal insufficiency resolved Acute on chronic systolic heart failure resolved Acute respiratory insufficiency resolved Acute systolic heart failure resolved Hemoptysis resolved Shortness of breath resolved [facility] Work Phone: Evaluation note* Diagnosis Onset Date Resolution Status Acute on chronic renal insufficiency resolved Acute on chronic systolic heart failure resolved Acute respiratory insufficiency resolved Acute systolic heart failure resolved Hemoptysis resolved Shortness of breath resolved [facility] Work Phone: Evaluation note* Diagnosis Onset Date Resolution Status 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 Camacho [facility] April 14, 2022 12:43am Note Date/Time April 14, 2022 1 2:24am [facility] Medical Records Department [address] [place] [address] H&P Exam - Hospitalist 04/13/22 2334 MR#: [id number] Acct: [id number] Name: YEFRI YANEZ Rep #:[id number] : 1965 57 From: Dangelo Camacho MD [...] 79.4 H, Lymph % (Auto) 12.7 L, [place] % (Auto) 7.1, Eos % (Auto) 0.0, [...] 21:56 EST Reading Location ID and State: [facility] / [place] Tel , Service support , Assessment & Plan Assessment/Plan (1) Acute [...] is subtherapeutic. Charges/Coding Visit Charges Inpatient E&M: 86032 Init Hosp L3 04/14/22 0043 <Electronically signed by Dangelo Camacho MD> Cosigner Signature (if applicable): CC: Dr. Jose Ramon Turner MD; Dr. Dangelo Camacho MD~ Signed [facility] Work Phone: History and physical note Author Dr. Lu [facility] June 28, 2022 12:52am Note Date/Time June 28, 2022 12: 20am [facility] Medical Records Department [address] [place] [address] H&P Exam - Hospitalist 06/28/22 0007 MR#: [id number] Acct: [id number] Name: YEFRI YANEZ Rep #:[id number] : 1965 57 From: Estelita Lu MD PCP: Dr. Jose Ramon Turner MD Status: [facility] - General General Date of Admission: 06/28/22 Date of Service: 06/28/22 Chief Complaint: Dyspnea, chest pain, wheezing, cough, recent incorrect Rx bumex. HPI Narrative The patient is a 57 y/o M w/ PMHx: Obesity, NIMCO on CPAP, PAF s/p prior cardioversion on coumadin, COPD, HTN, HLD, GERD, Metastatic renal CA s/p R nephrectomy, Tobacco use who presents to the [facility] ED on 06/27/22 with history of worsening [...] 75.4 H, Lymph % (Auto) 16.8 L, [place] % (Auto) 6.0, Eos % (Auto) 0.5, [...] nephrectomy, Tobacco use who presents to the [facility] ED on 06/27/22 with history of worsening [...] spine 12/2021, 02/06/2022 right radical nephrectomy at [facility], CT scan on 03/26/2022 showed no evidence [...] Disease Stage III, unclear subtype: Admission BUN/Cr /1.84, baseline renal function appears primarily 1.5-1.9, most [...] 75 minutes. Charges/Coding Visit Charges Inpatient E&M: 34687 Init Hosp L3 Procedures Hospitalists Procedures: 72569 Advncd Care Plan 30 Min 06/28/22 0052 <Electronically signed by Estelita Lu MD> Cosigner Signature (if applicable): CC: Dr. Estelita Lu MD; Dr. Jose Ramon Turner MD~ Signed [facility] Work Phone: History of Present illness Narrative* [...] [facility], referred [place] for nephrectomy. * 01/19/2022-patient scheduled for laparoscopic nephrectomy 02/03 * 01/20/2022-patient presented to [facility] with shortness of breath * 01/27/2022-patient presented to [facility] with persistence of subjective dyspnea, expiratory wheezing * 01/29/2022-patient represented to [facility] ED with chest tightness and shortness of [...] fatigue. Appetite is normal. Normal bowel function. ON-Hsfdggh-Fvhhvgnk SJW 400 DO Work Phone: Hospital Discharge [...] torsemide if you do not already have it.[facility] Work Phone: [facility] (narrative)* Diagnostic Procedure Only (Routine) - Closed Specialty Diagnoses / Procedures [facility] Referred To Contact MOLECULAR & FUNCTIONAL IMAGING Diagnoses Malignant neoplasm of kidney, unspecified laterality (HCC) Malignant neoplasm of kidney excluding renal pelvis, unspecified laterality (HCC) Procedures NM BONE WHOLE BODY BONE &/JOINT IMAGING WHOLE BODY Adriana Hodge MD [address] [place] [address] Molecular & Functional Imaging [address] [place] [address] Referral ID Status Reason Start Date Expiration Date V isits Requested Visits Authorized [id number] Closed Auto-Generate d Referral 06/26/2021 08/10/2021 2 2 [facility] for referral (narrative)* Outpatient Procedure (Routine) - Authorized Specialty Diagnoses / Procedures [facility] Referred To Contact [facility] Diagnoses Malignant neoplasm of right kidney, except renal pelvis (HCC) Procedures ECHO ECHO TTHRC R-T 2D W/WOM-MODE COMPL SPEC&COLR D Stephany Ceballos PA-C [address] [place] [address] [facility] [place] [address] [place] [address] Referral ID Status Reason Start Date Expiration Date Visits Requested Visits Authorized [id number] Authorized Auto-Generat ed Referral 07/11/2021 07/11/2022 1 1 * Outpatient Procedure (Routine) - Authorized Specialty Diagnoses / Procedures [facility] Referred To Contact [facility] Diagnoses Malignant neoplasm of right kidney, except renal pelvis (HCC) Procedures ECG COMPLETE ECG ROUTINE ECG W/LEAST 12 LDS W/I&R Stephany Ceballos PA-C [address] [place] [address] [facility] [place] [id number] Referral ID Status Reason Start Date Expiration Date Visits Requested Visits Authorized [id number] Authorized Auto-Generat ed Referral 07/11/2021 07/11/2022 1 1 [facility] for referral (narrative)* Reason for Referral: impaired mobility, gait training, impaired cognition/safety awareness [facility] for [facility] (narrative)* Outpatient Procedure (Routine) - Denied Specialty Diagnoses / Procedures Referred By Sujatha vasquez Referred To Contact HEART AND VASCULAR [place] Diagnoses Acute decompensated heart failure (HCC) Paroxysmal atrial fibrillation (HCC) Procedures ECHO LIMITED ECHO TRANSTHORAC R-T 2D W/WO M-MODE REC COMP Sayra Tello MD [address] [place] [address] [place] [phone] Referral ID Status Reason Start Date Expiration Date V isits Requested Visits Authorized [id number] Denied Auto-Generate d Referral 02/16/2022 02/16/2023 1 0 [facility] for referral (narrative)* Diagnostic Procedure Only (Routine) - Authorized Specialty Diagnoses / Procedures Referred By Sujatha t Referred To Contact MOLECULAR & FUNCTIONAL IMAGING Diagnoses Renal cell carcinoma of right kidney (HCC) Procedures NM BONE WHOLE BODY BONE &/JOINT IMAGING WHOLE BODY Haylee Wilburn MD [address] [place] [address] Molecular & Functional Imaging [address] [place] [address] Referral ID Status Reason Start Date Expiration Date Visits Requested Visits Authorized [id number] Authorized Auto-Generat ed Referral 03/11/2022 04/10/2023 1 1 * MRI/CT (Routine) - Authorized Specialty Diagnoses / Procedures Referred By [place] t Referred To Contact CT IMAGING Diagnoses Renal cell carcinoma of right kidney (HCC) Procedures CT CHEST W IVCON DIAGNOSTIC COMPUTED TOMOGRAPHY THORAX W/CONTRAST Haylee Wilburn MD [address] [place] [address] Ct Imaging Referral ID Status Reason Start Date Expiration Date Visits Requested Visits Authorized [id number] Authorized Auto-Generat ed Referral 03/11/2022 04/10/2023 1 1 * MRI/CT (Routine) - Authorized Specialty Diagnoses / Procedures Referred By Sujatha vasquez Referred To Contact CT IMAGING Diagnoses Renal cell carcinoma of right kidney (HCC) Procedures CT ABD/PEL W IVCON CT ABD & PELVIS W/CONTRAST Haylee Wilburn MD [address] [place] [address] Ct Imaging Referral ID Status Reason Start Date Expiration Date Visits Requested Visits Authorized [id number] Authorized Auto-Generat ed Referral 03/11/2022 04/26/2022 1 1 [facility] for referral (narrative)* Outpatient Procedure (Routine) - Closed Specialty Diagnoses / Procedures Referred By Sujatha vasquez Referred To Contact [facility] Diagnoses Acute decompensated heart failure (HCC) Paroxysmal atrial fibrillation (HCC) Procedures ECHO LIMITED ECHO TRANSTHORAC R-T 2D W/WO M-MODE REC COMP Sayra Tello MD [address] , [address] [place] [address] [facility] [address] [place] [address] Referral ID Status Reason Start Date Expiration Date V isits Requested Visits Authorized [id number] Closed Patient Cleared - INN Insurance Found 02/19/2022 03/07/2022 1 1 [facility] for referral (narrative)No reason for referral [facility] Work Phone: [facility] Narrative* Diagnostic Procedure Only (Routine) - Closed Specialty Diagnoses / Procedures Referred By Sujatha vasquez Referred To Contact MOLECULAR & FUNCTIONAL IMAGING Diagnoses Malignant neoplasm of kidney, unspecified laterality (HCC) Malignant neoplasm of kidney excluding renal pelvis, unspecified laterality (HCC) Procedures NM BONE WHOLE BODY BONE &/JOINT IMAGING WHOLE BODY Adriana Hodge MD [address] [place] [address] Molecular & Functional Imaging [address] [place] [address] Referral ID Status Reason Start Date Expiration Date V isits Requested Visits Authorized [id number] Closed Auto-Generate d Referral 06/26/2021 08/10/2021 2 2 [facility] for visit Narrative* Auth/Cert Specialty Diagnoses / Procedures [facility] Referred To Contact Diagnoses Nonrheumatic mitral valve regurgitation Procedures CATH PLMT L HRT & ARTS W/NJX & ANGIO IMG S&I PRQ TRLUML CORONARY STENT W/ANGIO ONE ART/BRNCH CORONARY ANGIO W CATH PLACE W IMAGE INJECT & INTERP W LT HEART CATH W INJECT LT VENTRGRAPHY INSERT INTRACORONARY STENT-PER MAJOR VESSEL OR [facility] Clipper Operator [address] [place] [phone] Referral ID Status Reason Start Date Expiration Date Visits Re quested Visits Authorized [id number] 1 1 [facility] for visit Narrative* Outpatient Procedure (Routine) - Closed Specialty Diagnoses / Procedures Referred By Sujatha vasquez Referred To Contact [facility] Diagnoses Malignant neoplasm of right kidney, except renal pelvis (HCC) Procedures ECG COMPLETE ECG ROUTINE ECG W/LEAST 12 LDS W/I&R Stephany Ceballos PA-C [address] [place] [id number] [facility] [place] [address] [place] [phone] Referral ID Status Reason Start Date Expiration Date V isits Requested Visits Authorized [id number] Closed Auto-Generate d Referral 07/11/2021 07/11/2022 1 1 [facility] for visit Narrative* Auth/Cert Specialty Diagnoses / Procedures Referred By Sujatha vasquez Referred To Contact HOSP INPATIENT Diagnoses Paroxysmal atrial fibrillation Acute decompensated heart failure (HCC) Paroxysmal atrial fibrillation (HCC) Procedures INITIAL HOSPITAL CARE/DAY 70 MINUTES Hosp Main [id number] [address] [place] [id number] Referral ID Status Reason Start Date Expiration Date Visits Re quested Visits Authorized [id number] 1 1 [facility] for visit Narrative* Diagnostic Procedure Only (Routine) - Closed Specialty Diagnoses / Procedures Referred By Sujatha vasquez Referred To Contact MOLECULAR & FUNCTIONAL IMAGING Diagnoses Renal cell carcinoma of right kidney (HCC) Procedures NM BONE WHOLE BODY BONE &/JOINT IMAGING WHOLE BODY Haylee Wilburn MD [address] [place] [phone] Molecular & Functional Imaging [address] [place] [address] Referral ID Status Reason Start Date Expiration Date V isits Requested Visits Authorized [id number] Closed Auto-Generate d Referral 03/11/2022 04/10/2023 1 2 [facility] for visit Narrative* Outpatient Procedure (Routine) - Closed Specialty Diagnoses / Procedures Referred By Sujatha vasquez Referred To Contact [facility] Diagnoses Acute decompensated heart failure (HCC) Paroxysmal atrial fibrillation (HCC) Procedures ECHO LIMITED ECHO TRANSTHORAC R-T 2D W/WO M-MODE REC COMP Sayra Tello MD [address] [facility], [address] [place] [address] [facility] [place] [address] [place] [address] Referral ID Status Reason Start Date Expiration Date V isits Requested Visits Authorized [id number] Closed Patient Cleared - INN Insurance Found 02/19/2022 03/07/2022 1 1 [facility] Summary Purpose Family History No Family History [...] Documents on File Type Date Recorded Patient Change Release Manager Expl anation Advance Directive(s) 02/05/2020 6:22 PM Advance Directive(s) 11/14/2019 1:53 PM Documents on File Type Date Recorded Patient Change Release Manager Expl anation Advance Directive(s) 02/05/2020 6:22 PM Advance Directive(s) 11/14/2019 1:53 PM Documents on File Type Date Recorded Patient Change Release Manager Expl anation Advance Directive(s) 06/26/2021 2:39 PM Advance Directive(s) 02/05/2020 6:22 PM Advance Directive(s) 11/14/2019 1:53 PM Documents on File Type Date Recorded Patient Change Release Manager Expl anation Advance Directive(s) 06/26/2021 2:39 PM Advance Directive(s) 02/05/2020 6:22 PM Advance Directive(s) 11/14/2019 1:53 PM Advance Directive Response Recorded Date/ Time Living Will No June 04, 2019 5:40pm Power of Accountant Cost No June 03 5:40pm Documents on File Type Date Recorded Patient Change Release Manager Expl anation Advance Directive(s) 07/31/2021 5:47 PM Advance Directive(s) 06/26/2021 2:39 PM Advance Directive(s) 02/05/2020 6:22 PM Advance Directive(s) 11/14/2019 1:53 PM Documents on File Type Date Recorded Patient Change Release Manager Expl anation Advance Directive(s) 08/05/2021 5:50 AM Advance Directive(s) 07/31/2021 5:47 PM Advance Directive(s) 06/26/2021 2:39 PM Advance Directive(s) 02/05/2020 6:22 PM Advance Directive(s) 11/14/2019 1:53 PM Documents on File Type Date Recorded Patient Change Release Manager Expl anation Advance Directive(s) 08/05/2021 5:50 AM Advance Directive(s) 07/31/2021 5:47 PM Advance Directive(s) 06/26/2021 2:39 PM Advance Directive(s) 02/05/2020 6:22 PM Advance Directive(s) 11/14/2019 1:53 PM Documents on File Type Date Recorded Patient Change Release Manager Expl anation Advance Directive(s) 08/17/2021 3:47 PM Advance Directive(s) 08/05/2021 5:50 AM Advance Directive(s) 07/31/2021 5:47 PM Advance Directive(s) 06/26/2021 2:39 PM Advance Directive(s) 02/05/2020 6:22 PM Advance Directive(s) 11/14/2019 1:53 PM Documents on File Type Date Recorded Patient Change Release Manager Expl anation Advance Directive(s) 08/17/2021 3:47 PM Advance Directive(s) 08/05/2021 5:50 AM Advance Directive(s) 07/31/2021 5:47 PM Advance Directive(s) 06/26/2021 2:39 PM Advance Directive(s) 02/05/2020 6:22 PM Advance Directive(s) 11/14/2019 1:53 PM Documents on File Type Date Recorded Patient Change Release Manager Expl anation Advance Directive(s) 09/02/2021 6:28 PM [...] Documents on File Type Date Recorded Patient Change Release Manager Expl anation Advance Directive(s) 09/02/2021 6:28 PM [...] Documents on File Type Date Recorded Patient Change Release Manager Expl anation Advance Directive(s) 09/23/2021 1:52 PM [...] Documents on File Type Date Recorded Patient Change Release Manager Expl anation Advance Directive(s) 09/23/2021 1:52 PM [...] Documents on File Type Date Recorded Patient Change Release Manager Expl anation Advance Directive(s) 10/06/2021 1:03 PM Advance Directive(s) 09/23/2021 1:52 PM Advance Directive(s) 09/02/2021 6:28 PM Advance Directive(s) 08/17/2021 3:47 PM Advance Directive(s) 08/05/2021 5:50 AM Advance Directive(s) 07/31/2021 5:47 PM Advance Directive(s) 06/26/2021 2:39 PM Advance Directive(s) 02/05/2020 6:22 PM Advance Directive(s) 11/14/2019 1:53 PM Advance Directive Response Recorded Date/ Time Living Will No December 07 2:19pm Power of Accountant Cost No December 07 2:19pm Advance Directive Response Recorded Date/ Time Living Will No January 20 7:21pm Power of Accountant Cost No January 20, 2022 7:21pm Advance Directive Response Recorded Date/ Time Name of Medical Power of Accountant Cost January 29, 2022 11:59am Living Will No January 29 11:59am Power of Accountant Cost Yes January 29, 2022 11:59am Advance Directive Response Recorded Date/ Time Name of Medical Power of Accountant Cost January 29, 2022 11:59am Name of Medical Power of Accountant Cost MIYA YANEZ- April 13, 2022 10:43pm Living Will No April 13 10:43pm Power of Accountant Cost Yes April 13, 2022 10:43pm Advance Directive Response Recorded Date/ Time Name of Medical Power of Accountant Cost January 29, 2022 11:59am Name of Medical Power of Accountant Cost Miya gilliam April 14, 2022 1:15am Living Will No April 14 1:15am Power of Accountant Cost Yes April 14, 2022 1:15am Advance Directive Response Recorded Date/ Time Name of Medical Power of Accountant Cost January 29, 2022 12:59pm Name of Medical Power of Accountant Cost Miya gilliam April 14, 2022 2:15am Name of Medical Power of Accountant Cost miya yanez May 18, 2022 3:35pm Living Will Yes May 18, 2022 3:35pm Power of Accountant Cost Yes May 18 3:35pm Advance Directive Response Recorded Date/ Time Name of Medical Power of Accountant Cost January 29, 2022 12:59pm Name of Medical Power of Accountant Cost Miya gilliam April 14, 2022 2:15am Name of Medical Power of Accountant Cost Miya Yanez May 18, 2022 7:01pm Living Will Yes May 18, 2022 7:01pm Power of Accountant Cost Yes May 18 7:01pm Advance Directive Response Recorded Date/ Time Name of Medical Power of Accountant Cost Miya gilliam April 14, 2022 2:15am Name of Medical Power of Accountant Cost Miya Yanez May 18, 2022 7:01pm Name of Medical Power of Accountant Cost June 27, 2022 11:12pm Living Will Yes June 27, 2022 11:12pm Power of Accountant Cost Yes June 27 11:12pm Advance Directive Response Recorded Date/ Time Name of Medical Power of Accountant Cost Miya gilliam April 14, 2022 2:15am Name of Medical Power of Accountant Cost Miya Yanez May 18, 2022 7:01pm Name of Medical Power of Accountant Cost Miya Yanez June 28, 2022 1:12am Living Will No June 28, 2022 1:12am Power of Accountant Cost Yes June 28 1:12am Advance Directive Response Recorded Date/ Time Name of Medical Power of Accountant Cost Miya Yanez May 18, 2022 7:01pm Name of Medical Power of Accountant Cost Miya Yanez June 28, 2022 1:12am Living Will No June 28, 2022 1:12am Power of Accountant Cost Yes June 28 1:12am Advance Directive Response Recorded Date/ Time Name of Medical Power of Accountant Cost Lena Yanez December 15, 2022 4:41pm Living Will No December 15 4:41pm Power of Accountant Cost Yes December 15, 2022 4:41pm Advance Directive Response Recorded Date/ Time Name of Medical Power of Accountant Cost Lena Yanez December 15, 2022 3:41pm Living Will No December 15 3:41pm Power of Accountant Cost Yes December 15, 2022 3:41pm Advance Directive Response Recorded Date/ Time Living Will No December 15 3:41pm Power of Accountant Cost Yes December 15, 2022 3:41pm Advance Directive Response Recorded Date/ Time Living Will No December 15 4:41pm Power of Accountant Cost Yes December 15, 2022 4:41pm Date Activated [...] Do you have a Healthcare Power of Accountant Cost? Yes December 15, 2022 4:41pm Reason for Referral Specialty Diagnoses / [facility] Diagnoses Malignant neoplasm of kidney, unspecified laterality (HCC) Malignant neoplasm of kidney excluding renal pelvis, unspecified laterality (HCC) Procedures CT ABD/PEL WO IVCON CT ABD & PELVIS W/O CONTRAST Adriana Hodge [facility] [address] [facility] [facility] [place] [address] Ct Imaging Referral ID Status Reason Start Date Expiration Date Visits Requested Visits Authorized [id number] Pending Review Auto-Generat ed Referral 06/23/2021 07/23/2022 1 1 Specialty Diagnoses / [facility] IM[facility]ING Diagnoses Malignant neoplasm of kidney, unspecified laterality (HCC) Malignant neoplasm of kidney excluding renal pelvis, unspecified laterality (HCC) Procedures CT ABD/PEL W IVCON CT ABD & PELVIS W/CONTRAST Adriana Hodge MD [address] [place] [address] Ct Imaging Referral ID Status Reason Start Date Expiration Date Visits Requested Visits Authorized [id number] Pending Review Auto-Generat ed Referral 06/23/2021 07/23/2022 1 1 Specialty Diagnoses / Procedures [facility]erred To Contact MOLECULAR & FUNCTIONAL IMAGING Diagnoses Malignant neoplasm of kidney, unspecified laterality (HCC) Malignant neoplasm of kidney excluding renal pelvis, unspecified laterality (HCC) Procedures NM BONE WHOLE BODY BONE &/JOINT IMAGING WHOLE BODY Adriana Hodge MD [address] [place] [address] Molecular & Functional Imaging [address] [place] [address] Referral ID Status Reason Start Date Expiration Date Visits Requested Visits Authorized [id number] Pending Review Auto-Generat ed Referral 06/23/2021 07/23/2022 1 1 Specialty Diagnoses / Procedures Referred By [facility] Referred To Contact Oncology Diagnoses Malignant neoplasm of kidney, unspecified laterality (HCC) Malignant neoplasm of kidney excluding renal pelvis, unspecified laterality (HCC) Procedures CONSULT TO ONCOLOGY OFFICE/OUTPATIENT [facility] 60-74 MINUTES Adriana Hodge MD [address] [place] [address] Referral ID Status Reason Start Date Expiration Date Visits Requested Visits Authorized [id number] Pending Review PCP Requested Referral 06/23/2021 06/23/2022 1 1 Specialty Diagnoses / Procedures Referred By [facility] Referred To Contact RADIO CT SCAN [facility] Diagnoses Malignant neoplasm of kidney, unspecified laterality (HCC) Malignant neoplasm of kidney excluding renal pelvis, unspecified laterality (HCC) Procedures CT ABD/PEL W IVCON CT ABD & PELVIS W/CONTRAST Adriana Hodge MD [address] [place] [address] Scan [facility] [address] [place] [address] Referral ID Status Reason Start Date Expiration Date V isits Requested Visits Authorized [id number] Closed Auto-Generate d Referral 06/26/2021 08/10/2021 1 1 Specialty Diagnoses / Procedures Referred By [facility] Referred To Contact MR IMAGING Diagnoses Malignant neoplasm of kidney excluding renal pelvis, unspecified laterality (HCC) Renal cell carcinoma, unspecified laterality (HCC) Procedures MRI BRAIN WO/W IVCON MRI BRAIN BRAIN STEM W/O W/CONTRAST MATERIAL Kenneth Chester MD [address] [place] [address] Mr Imaging Referral ID Status Reason Start Date Expiration Date Visits Requested Visits Authorized [id number] Authorized Auto-Generat ed Referral 07/14/2021 08/28/2021 1 1 Specialty Diagnoses / Procedures Referred By [facility] Referred To Contact CT IMAGING Diagnoses Malignant neoplasm of right kidney, except renal pelvis (HCC) Renal cell carcinoma, unspecified laterality (HCC) Procedures CT CHEST W IVCON DIAGNOSTIC COMPUTED TOMOGRAPHY THORAX W/CONTRAST Kenneth Chester MD [address] [place] [address] Ct Imaging Referral ID Status Reason Start Date Expiration Date V isits Requested Visits Authorized [id number] Closed Auto-Generate d Referral 07/14/2021 08/28/2021 1 1 Referral ID Status Reason Start Date Expiration Date V isits Requested Visits Authorized [id number] Closed Auto-Generate d Referral 07/14/2021 08/28/2021 1 1 Specialty Diagnoses / Procedures Referred By [facility] t Referred To Contact CT IMAGING Diagnoses Malignant neoplasm of right kidney, except renal pelvis (HCC) Malignant neoplasm of kidney excluding renal pelvis, unspecified laterality (HCC) Procedures CT ABD/PEL W IVCON CT ABD & PELVIS W/CONTRAST Kenneth Chester MD [address] [place] [address] Ct Imaging Referral ID Status Reason Start Date Expiration Date Visits Requested Visits Authorized [id number] Pending Review Auto-Generat ed Referral 07/28/2021 08/27/2022 1 1 Specialty Diagnoses / Procedures Referred By [facility] t Referred To Contact MR IMAGING Diagnoses Other specified disorders of kidney and ureter Procedures MRI KIDNEY WO/W IVCON MRI ABDOMEN W/O & W/CONTRAST MATERIAL Godfrey Ohara, KEYUR.PHOTO MASK PATTERN GENERATOR [address] [place] [address] Mr Imaging Referral ID Status Reason Start Date Expiration Date Visits Requested Visits Authorized [id number] Pending Review Auto-Generat ed Referral 08/08/2021 09/07/2022 1 1 Specialty Diagnoses / Procedures Referred By [facility] t Referred To Contact CT IMAGING Diagnoses Malignant neoplasm of right kidney, except renal pelvis (HCC) Malignant neoplasm of kidney excluding renal pelvis, unspecified laterality (HCC) Procedures CT CHEST W IVCON DIAGNOSTIC COMPUTED TOMOGRAPHY THORAX W/CONTRAST Stephany Ceballos PA-C [id number] Imaging Referral ID Status Reason Start Date Expiration Date Visits Requested Visits Authorized [id number] Pending Review Auto-Generat ed Referral 08/21/2021 09/19/2022 1 1 Specialty Diagnoses / Procedures Referred By [facility] t Referred To Contact CT IMAGING Diagnoses Malignant neoplasm of right kidney, except renal pelvis (HCC) Malignant neoplasm of kidney excluding renal pelvis, unspecified laterality (HCC) Procedures CT ABD/PEL W IVCON CT ABD & PELVIS W/CONTRAST Stephany Ceballos PA-C [id number] Imaging Referral ID Status Reason Start Date Expiration Date Visits Requested Visits Authorized [id number] Pending Review Auto-Generat ed Referral 08/21/2021 09/19/2022 1 1 Specialty Diagnoses / Procedures Referred By [facility] t Referred To Contact CT IMAGING Diagnoses Malignant neoplasm of right kidney, except renal pelvis (HCC) Procedures CT CHEST W IVCON DIAGNOSTIC COMPUTED TOMOGRAPHY THORAX W/CONTRAST Godfrey Ohara APRN.PHOTO MASK PATTERN GENERATOR [address] [place] [address] Ct Imaging Referral ID Status Reason Start Date Expiration Date Visits Requested Visits Authorized [id number] Pending Review Auto-Generat ed Referral 10/16/2021 09/26/2022 1 1 Specialty Diagnoses / Procedures Referred By [facility] t Referred To Contact CT IMAGING Diagnoses Malignant neoplasm of right kidney, except renal pelvis (HCC) Procedures CT ABD/PEL W IVCON CT ABD & PELVIS W/CONTRAST Godfrey Ohara APRN.PHOTO MASK PATTERN GENERATOR [address] [address] [address] Imaging Referral ID Status Reason Start Date Expiration Date Visits Requested Visits Authorized [id number] Pending Review Auto-Generat ed Referral 10/16/2021 09/26/2022 1 1 Specialty Diagnoses / Procedures Referred By [facility] t Referred To Contact CT IMAGING Diagnoses SOB (shortness of breath) Procedures CT CHEST W IVCON PE DIAGNOSTIC COMPUTED TOMOGRAPHY THORAX W/CONTRAST Daksha Melo PA-C [address] [place] [address] Ct Imaging Referral ID Status Reason Start Date Expiration Date Visits Requested Visits Authorized [id number] Pending Review Auto-Generat ed Referral 09/02/2021 10/02/2022 1 1 Specialty Diagnoses / Procedures Referred By [facility] t Referred To Contact CT IMAGING Diagnoses Malignant neoplasm of right kidney, except renal pelvis (HCC) Procedures CT CHEST W IVCON DIAGNOSTIC COMPUTED TOMOGRAPHY THORAX W/CONTRAST Adriana Hodge MD [address] [place] [address] Ct Imaging Referral ID Status Reason Start Date Expiration Date Visits Requested Visits Authorized [id number] Closed Financial Clearance Required - OON Payor [...] ABD & PELVIS W/CONTRAST Adriana Hodge MD [address] [place] [address] Ct Imaging Referral ID Status Reason Start Date Expiration Date Visits Requested Visits Authorized [id number] Closed Financial Clearance Required - OON Payor OON Notification Letter Clearance Not Met - Pt Rescheduled/Canc elled/Chose Not to Proceed OON/Self Pay Override 10/22/2021 11/21/2022 1 0 Specialty Diagnoses / Procedures Referred By [facility] t Referred To Contact Diagnoses Renal cell carcinoma of right kidney (HCC) Procedures REFER TO PACC - PRE ANESTHESIA CONSULTATION CLINIC OFFICE/OUTPATIENT [facility] MDM 60-74 MINUTES Adriana Hodge MD [address] [place] [address] [place] [phone] Referral ID Status Reason Start Date Expiration Date V isits Requested Visits Authorized [id number] Denied PCP Requested Referral 12/30/2021 12/30/2022 1 0 Specialty Diagnoses / Procedures Referred By [facility] t Referred To Contact [facility] Diagnoses Renal cell carcinoma of right kidney (HCC) Procedures ECG COMPLETE ECG ROUTINE ECG W/LEAST 12 LDS W/I&R Adriana Hodge MD [address] [place] [address] [place] [phone] Referral ID Status Reason Start Date Expiration Date V isits Requested Visits Authorized [id number] Denied Auto-Generate d Referral 12/30/2021 12/30/2022 1 0 Medications Administered Section Inactive Administered Medications - up to 3 most recent administrations Medication Order MAR Action Action Date Dose Rate Site INV CABOZANTINIB 40 mg TABLET ([facility] 1820/20-983) 40 mg, ORAL, ONCE, 1 dose, [...] Action Date Dose Rate Site INV NIVOLUMAB ([facility] 1820/20-983) 480 mg in NaCl 0.9% 100 [...] Rate Site INV CABOZANTINIB 20 mg TABLET ([facility] 1820/20-983) 20 mg, ORAL, ONCE, 1 dose, [...] CHRONIC HEART FAILURE AECHF AECHF AECHF S/P [facility] 04-13-22 CHF and AFIB (NO CONSULT) NEW-RENAL [...] CHRONIC HEART FAILURE AECHF AECHF AECHF S/P [facility] 04-13-22 CHF and AFIB (NO CONSULT) NEW-RENAL [...] bone Chief Complaint AECHF AECHF AECHF S/P [facility] 04-13-22 CHF and AFIB (NO CONSULT) NEW-RENAL [...] October 02, 2024 2:24 pm Chief Complaint Admit Date KIDNEY/BONE CANCER June 13, 2024 12:4 4pm [...] W FU October 02, 2024 2:24 pm INT LAB ORDERS October 02, 2024 3:21 pm Reason for Visit Admit Date Metastatic renal cell carcinoma to bone June 20, 2024 1:05pm Renal cell cancer June 20, 2024 1:0 5pm Chest pain August 14, 2024 12:55 pm Hypertension August 14, 2024 12:55 pm Renal failure August 14, 2024 12:55 pm Atrial fibrillation August 14, 2024 12:55 pm CHF (congestive heart failure) August 14, 2024 12:55pm Hypertension October 02, 2024 2:24 pm Hypotension October 02, 2024 2:24 pm Renal failure October 02, 2024 2:24 pm Atrial fibrillation October 02, 2024 2:24 pm CHF (congestive heart failure) September 2:24pm Chief Complaint Metastatic kidney cancer Additional Source [...] DATE CREATED AUTHOR AUTHOR'S ORGANIZ ATION 02/05/2022 [facility] DATE CREATED AUTHOR AUTHOR'S ORGANIZ ATION 03/17/2022 [facility] DATE CREATED AUTHOR AUTHOR'S ORGANIZ ATION 04/04/2022 [employer] DATE CREATED AUTHOR AUTHOR'S ORGANIZ ATION 04/25/2022 [facility] DATE CREATED AUTHOR AUTHOR'S ORGANIZ ATION 05/18/[address] [facility] DATE CREATED AUTHOR AUTHOR'S ORGANIZ ATION 07/19/2022 [facility] DATE CREATED AUTHOR AUTHOR'S ORGANIZ ATION 10/17/2024 [facility] Care Teams (unrecognized sec tion and [...] A ctive Dr. Jesús Che DO Attending Provider, Other Provid er Active Team [...] Provider Activ e Dr. Livan Hastings , DO Emergency Provider Active Dr. Estelita Lu [...] Provider Activ e Dr. Petra Carvajal , DO Attending Provider, Emergency Pro vider Active Team [...] Ac tive Start: June 19, 2021 Siri aHrris MD EMERGENCY Active Start: 2021 Family Physician Unavailable FAMILY Active Start: June 19, 2021 MIYA YANEZ Next of Kin Active Start: June 19, 2021 Production Bow Maker Relationship Specialty [place] [address] [place] [address] PCP - General Internal Medicine 10/10/18 Production Bow Maker Relationship Specialty [place] [address] [place] [address] PCP - General Internal Medicine 10/10/18 Production Bow Maker Relationship Specialty Start [place] [address] [place] [address] PCP - General Internal Medicine 10/10/18 Production Bow Maker Relationship Specialty Start [place] [address] [place] [address] PCP - General Internal Medicine 10/10/18 Production Bow Maker Relationship Specialty Start [place] [address] [place] [address] PCP - General Internal Medicine 10/10/18 Production Bow Maker Relationship Specialty Start [place] [address] [place] [address] PCP - General Internal Medicine 10/10/18 Production Bow Maker Relationship Specialty Start [place] [address] [place] [address] PCP - General Internal Medicine 10/10/18 Production Bow Maker Relationship Specialty Start [place] [address] [place] [address] PCP - General Internal Medicine 10/10/18 Production Bow Maker Relationship Specialty Start [place] [address] [place] [address] PCP - General Internal Medicine 10/10/18 Production Bow Maker Relationship Specialty Start [place] [address] [place] [address] PCP - General Internal Medicine 10/10/18 Production Bow Maker Relationship Specialty Start [place] [address] [place] [address] PCP - General Internal Medicine 10/10/18 Production Bow Maker Relationship Specialty Start [place] [address] [place] [address] PCP - General Internal Medicine 10/10/18 Production Bow Maker Relationship Specialty Start [place] [address] [place] [address] PCP - General Internal Medicine 10/10/18 Production Bow Maker Relationship Specialty Start [place] [address] [place] [address] PCP - General Internal Medicine 10/10/18 Production Bow Maker Relationship Specialty Start Date End Date Daksha Turner MD [address] [place] [address], [place] [address] PCP - General Family Practice 07/18/21 Production Bow Maker Relationship Specialty Start Date End Date Daksha Turner MD [address] [place] [address], [place] [address] PCP - General Family Practice 07/18/21 Production Bow Maker Relationship Specialty Start Date End Date Daksha Turner MD [address] [place] [address], [place] [address] PCP - General Family Practice 07/18/21 Production Bow Maker Relationship Specialty Start Date End Date Daksha Turner MD [address] [facility] [place] [address] PCP - General Family Practice 07/18/21 Production Bow Maker Relationship Specialty Start Date End Date Daksha Turner MD [address] [facility] [place] [place] [address] PCP - General Family Practice 07/18/21 Production Bow Maker Relationship Specialty Start Date End Date Daksha Turner MD [address] [facility] [place] [place] [address] PCP - General Family Practice 07/18/21 Production Bow Maker Relationship Specialty Start Date End Date Daksha Turner MD [address] [facility] [place] [address] PCP - General Family Practice 07/18/21 Production Bow Maker Relationship Specialty Start Date End Date Daksha Turner MD [address] [facility] [place] [address] PCP - General Family Practice 07/18/21 Production Bow Maker Relationship Specialty Start Date End Date Daksha Turner MD [address] [facility] [place] [address] PCP - General Family Practice 07/18/21 Production Bow Maker Relationship Specialty Start Date End Date Daksha Turner MD [address] [facility] [place] [place] [address] PCP - General Family Practice 07/18/21 Production Bow Maker Relationship Specialty Start Date End Date Daksha Turner MD [address] [facility] [place] [address] PCP - General Family Practice 07/18/21 Production Bow Maker Relationship Specialty Start Date End Date Daksha Turner MD [address] [place] [address] PCP - General Family Practice 07/18/21 Production Bow Maker Relationship Specialty Start Date End Date Daksha Turner MD [address] [place] [address] PCP - General Family Practice 07/18/21 Production Bow Maker Relationship Specialty Start Date End Date Daksha Turner MD [address] [place] [address] PCP - General Family Practice 07/18/21 Production Bow Maker Relationship Specialty Start Date End Date Daksha Turner MD [address] [place] [address] PCP - General Family Practice 07/18/21 Production Bow Maker Relationship Specialty Start Date End Date Daksha Turner MD [address] [place] [address] PCP - General Family Practice 07/18/21 Production Bow Maker Relationship Specialty Start Date End Date Daksha Turner MD [address] [place] [address] PCP - General Family Practice 07/18/21 Production Bow Maker Relationship Specialty Start Date End Date Daksha Turner MD [address] [place] [address] PCP - General Family Practice 07/18/21 Production Bow Maker Relationship Specialty Start Date End Date Daksha Turner MD [address] [place] [address] PCP - General Family Practice 07/18/21 Production Bow Maker Relationship Specialty Start Date End Date Daksha Turner MD [address] [place] [address] PCP - General Family Practice 07/18/21 Production Bow Maker Relationship Specialty Start Date End Date Daksha Turner MD [address] [place] [address] PCP - General Family Practice 07/18/21 Production Bow Maker Relationship Specialty Start Date End Date Daksha Turner MD [address] [place] [address] PCP - General Family Practice 07/18/21 Production Bow Maker Relationship Specialty Start Date End Date Daksha Turner MD [address] [place] [address] PCP - General Family Practice 07/18/21 Production Bow Maker Relationship Specialty Start Date End Date Daksha Turner MD [address] [place] [address] PCP - General Family Practice 07/18/21 Sary Jonas, [employer] Counter Oncology 08/11/21 Production Bow Maker Relationship Specialty Start Date End Date Daksha Turner MD [address] [place] [address] PCP - General Family Practice 07/18/21 Sary Jonas, [employer] Oncology 08/11/21 Production Bow Maker Relationship Specialty Start Date End Date Daksha Turner MD [address] [place] [address] PCP - General Family Practice 07/18/21 Sumi, Sary, [employer] Oncology 08/11/21 Production Bow Maker Relationship Specialty Start Date End Date Daksha Turner MD [address] [place] [address] PCP - General Family Practice 07/18/21 Golias, Sary, [employer] Oncology 08/11/21 Production Bow Maker Relationship Specialty Start Date End Date Daksha Turner MD [address] [place], [place] [id number] PCP - General Family Practice 07/18/21 Golias, Sary, [employer] Oncology 08/11/21 Production Bow Maker Relationship Specialty Start Date End Date Daksha Turner MD [address] [facility] [place], [place] 6[address]21 PCP - General Family Practice 07/18/21 Golelpidio, Sary, [facility] [employer] Oncology 08/11/21 Lalo Black MD [address] [place] [address] Primary Staff Physician Cardiology 08/19/21 Production Bow Maker Relationship Specialty Start Date End Date Daksha Turner MD [address] [place] [address] PCP - General Family Practice 07/18/21 Sumi, Sary, [facility] [employer] Oncology 08/11/21 Lalo Black MD [address] [place], [place] [id number] Primary Staff Physician Cardiology 08/19/21 Production Bow Maker Relationship Specialty Start Date End Date Daksha Turner MD [address] [place] [address] PCP - General Family Practice 07/18/21 Sumi, Sary, [facility] [employer] Oncology 08/11/21 Lalo Black MD [address] [place], [place] [id number] Primary Staff Physician Cardiology 08/19/21 Production Bow Maker Relationship Specialty Start Date End Date Daksha Turner MD [address] [facility] [place] [address] PCP - General Family Practice 07/18/21 Sary Jonas, [facility] [employer] Counter Oncology 08/11/21 Lalo Black MD [address] [place] [address] Primary Staff Physician Cardiology 08/19/21 Production Bow Maker Relationship Specialty Start Date End Date Daksha Turner MD [address] [facility] [address] PCP - General Family Practice 07/18/21 Sary Jonas, [facility] [employer] Oncology 08/11/21 Lalo Black MD [address] [place] [address] Primary Staff Physician Cardiology 08/19/21 Production Bow Maker Relationship Specialty Start Date End Date Daksha Turner MD [address] [facility] [place], [place] [address] PCP - General Family Practice 07/18/21 Sary Jonas, [facility] [employer] Oncology 08/11/21 Lalo Black MD [address] [place] [address] Primary Staff Physician Cardiology 08/19/21 Production Bow Maker Relationship Specialty Start Date End Date Daksha Turner MD [address] [facility] [address] PCP - General Family Practice 07/18/21 Sary Jonas, [facility] [employer] Oncology 08/11/21 Lalo Black MD [address] [place] [address] Primary Staff Physician Cardiology 08/19/21 Production Bow Maker Relationship Specialty Start Date End Date Daksha Turner MD [address] [place], [place] [address]551 PCP - General Family Practice 07/18/21 Sary Jonas, [facility] [employer] Oncology 08/11/21 Lalo Black MD [address] [place] [address] Primary Staff Physician Cardiology 08/19/21 Production Bow Maker Relationship Specialty Start Date End Date Daksha Turner MD [address] [place] [address] PCP - General Family Practice 07/18/21 Sary Jonas, [facility] [employer] Oncology 08/11/21 Lalo Black MD [address] [place] [address] Primary Staff Physician Cardiology 08/19/21 Production Bow Maker Relationship Specialty Start Date End Date Daksha Turner MD [address] [place], [place] 801311 PCP - General Family Practice 07/18/21 Sary Jonas, [facility] [employer] Oncology 08/11/21 Lalo Black MD [address] [place] [address] Primary Staff Physician Cardiology 08/19/21 Production Bow Maker Relationship Specialty Start Date End Date Daksha Turner MD [address] [place] [address] PCP - General Family Practice 07/18/21 Sary Jonas, [facility] [employer] Oncology 08/11/21 Lalo Black MD [address] [place] [address] Primary Staff Physician Cardiology 08/19/21 Rahul Knight, RN Research Nurse 09/03/21 Production Bow Maker Relationship Specialty Start Date End Date Daksha Turner MD [address] [facility] [place], [place] [address]51 PCP - General Family Practice 07/18/21 Sary Jonas, [facility] [employer] Oncology 08/11/21 Lalo Black MD [address] [place], [place] [id number] Primary Staff Physician Cardiology 08/19/21 Rahul Knight, RN Research Nurse 09/03/21 Production Bow Maker Relationship Specialty Start Date End Date Daksha Turner MD [address] [place], [place] [id number] PCP - General Family Practice 07/18/21 Sary Jonas, [facility] [employer] Oncology 08/11/21 Lalo Black MD [address] [place] [address] Primary Staff Physician Cardiology 08/19/21 Rahul Knight, RN Research Nurse 09/03/21 Production Bow Maker Relationship Specialty Start Date End Date Daksha Turner MD [address] [place] [address] PCP - General Family Practice 07/18/21 Sary Jonas, [facility] [employer] Oncology 08/11/21 Lalo Black MD [address] [place] [address] Primary Staff Physician Cardiology 08/19/21 Rahul Knight, RN Research Nurse 09/03/21 Production Bow Maker Relationship Specialty Start Date End Date Daksha Turner MD [address] [place], [place] [id number] PCP - General Family Practice 07/18/21 Sary Jonas, [facility] [employer] Oncology 08/11/21 Lalo Black MD [address] [place] [address] Primary Staff Physician Cardiology 08/19/21 Rahul Knight, RN Research Nurse 09/03/21 Production Bow Maker Relationship Specialty Start Date End Date Daksha uTrner MD [address] [place], [place] [id number] PCP - General Family Practice 07/18/21 [facility] [employer] Oncology 08/11/21 Lalo Black MD [address] [place], [place] [id number] Primary Staff Physician Cardiology 08/19/21 Rahul Knight, RN Research Nurse 09/03/21 Safia Carr, [facility] [address] [place] [address] Transitional Care Pharmacist Pharmacy 09/29/21 10/30/21 Production Bow Maker Relationship Specialty Start Date End Date Daksha Turner MD [address] [place], [place] [id number] PCP - General Family Practice 07/18/21 [facility], [facility] [employer] Turner [employer] Counter Oncology 08/11/21 Lalo Black MD [address] [place] [address] Primary Staff Physician Cardiology 08/19/21 Rahul Knight, RN Research Nurse 09/03/21 Safia Carr, [facility] [address] [place] [address] Transitional Care Pharmacist Pharmacy 09/29/21 10/30/21 Production Bow Maker Relationship Specialty Start Date End Date Daksha Turner MD [address] [place], [place] [id number] PCP - General Family Practice 07/18/21 Sary Jonas, [facility] [employer] Counter Oncology 08/11/21 Lalo Black MD [address] [place] [address] Primary Staff Physician Cardiology 08/19/21 Rahul Knight, RN Research Nurse 09/03/21 Production Bow Maker Relationship Specialty Start Date End Date Daksha Turner MD [address] [place], [place] 577281 PCP - General Family Practice 07/18/21 Sary Jonas, [facility] [employer] Counter Oncology 08/11/21 Lalo Black MD [address] [place] [address] Primary Staff Physician Cardiology 08/19/21 Rahul Knight, RN Research Nurse 09/03/21 Safia Carr, [facility] [address] [place] [address] Transitional Care Pharmacist Pharmacy 09/29/21 10/30/21 Production Bow Maker Relationship Specialty Start Date End Date Daksha Turner MD [address] [place], [place] [id number] PCP - General Family Practice 07/18/21 Sary Jonas, [facility] [employer] Turner [employer] Counter Oncology 08/11/21 Lalo Black MD [address] [place] [address] Primary Staff Physician Cardiology 08/19/21 Rahul Knight, RN Research Nurse 09/03/21 Safia Carr, [facility] [address] [place] [address] Transitional Care Pharmacist Pharmacy 09/29/21 10/30/21 Production Bow Maker Relationship Specialty Start Date End Date Daksha Turner MD [address] [place] [address] PCP - General Family Practice 07/18/21 Sary Jonas, [facility] [employer] Turner [employer] Counter Oncology 08/11/21 Lalo Black MD [address] [place] [address] Primary Staff Physician Cardiology 08/19/21 Rahul Knight, RN Research Nurse 09/03/21 Safia Carr, [facility] [address] [place] [address] Transitional Care Pharmacist Pharmacy 09/29/21 10/30/21 Production Bow Maker Relationship Specialty Start Date End Date Daksha Turner MD [address] [place], [place] [id number] PCP - General Family Practice 07/18/21 Sary Jonas, [facility] [employer] Turner [employer] Counter Oncology 08/11/21 Lalo Black MD [address] [place] [address] Primary Staff Physician Cardiology 08/19/21 Rahul nKight, RN Research Nurse 09/03/21 Safia Carr, [facility] [address] [place] [address] Transitional Care Pharmacist Pharmacy 09/29/21 10/30/21 Production Bow Maker Relationship Specialty Start Date End Date Daksha Turner MD [address] [place], [place] [id number] PCP - General Family Practice 07/18/21 Sary Jonas, [facility] [employer] Turner [employer] Counter Oncology 08/11/21 Lalo Black MD [address] [place], [place] [id number] Primary Staff Physician Cardiology 08/19/21 Rahul Knight, RN Research Nurse 09/03/21 Safia Carr, [facility] [address] [place] [address] Transitional Care Pharmacist Pharmacy 09/29/21 10/30/21 Production Bow Maker Relationship Specialty Start Date End Date Daksha Turner MD [address] [place], [place] [id number] PCP - General Family Practice 07/18/21 Sary Jonas, [facility] [employer] Counter Oncology 08/11/21 Lalo Black MD [address] [place] [address] Primary Staff Physician Cardiology 08/19/21 Rahul Knight, RN Research Nurse 09/03/21 Production Bow Maker Relationship Specialty Start Date End Date Daksha Turner MD [address] [place], [place] 915811 PCP - General Family Practice 07/18/21 Sary Jonas, [facility] [employer] Turner [employer] Counter Oncology 08/11/21 Lalo Black MD [address] [place], [place] [id number] Primary Staff Physician Cardiology 08/19/21 Rahul Knight, RN Research Nurse 09/03/21 Safia Carr, [facility] [address] [place] [address] Transitional Care Pharmacist Pharmacy 09/29/21 10/30/21 Production Bow Maker Relationship Specialty Start Date End Date Daksha Turner MD [address] [place], [place] [id number] PCP - General Family Practice 07/18/21 Sary Jonas, [facility] [employer] Turner [employer] Counter Oncology 08/11/21 Lalo Black MD [address] [place], [place] [id number] Primary Staff Physician Cardiology 08/19/21 Rahul Knight, RN Research Nurse 09/03/21 Production Bow Maker Relationship Specialty Start Date End Date Daksha Turner MD [address] [place], [place] [id number] PCP - General Family Practice 07/18/21 Sary Jonas, [facility] [employer] Turner [employer] Counter Oncology 08/11/21 Lalo Black MD [address] [place] [address] Primary Staff Physician Cardiology 08/19/21 Rahul Knight, RN Research Nurse 09/03/21 Safia Carr, [facility] [address] [place], [place] [id number] Transitional Care Pharmacist Pharmacy 09/29/21 10/30/21 Production Bow Maker Relationship Specialty Start Date End Date Daksha Turner MD [address] [place], [place] [id number] PCP - General Family Practice 07/18/21 Sary Jonas, [facility] [employer] Turner [employer] Counter Oncology 08/11/21 Lalo Black MD [address] [place] [address] Primary Staff Physician Cardiology 08/19/21 Rahul Knight, RN Research Nurse 09/03/21 Production Bow Maker Relationship Specialty Start Date End Date Daksha Turnre MD [address] [place], [place] [id number] PCP - General Family Practice 07/18/21 Sary Jonas, [facility] [employer] Turner [employer] Counter Oncology 08/11/21 Lalo Black MD [address] [place] [address] Primary Staff Physician Cardiology 08/19/21 Rahul Knight, RN Research Nurse 09/03/21 Production Bow Maker Relationship Specialty Start Date End Date Daksha Turner MD [address] [place], [place] 306121 PCP - General Family Practice 07/18/21 Sary Jonas, [facility] [employer] Turner [employer] Counter Oncology 08/11/21 Lalo Black MD [address] [place] [address] Primary Staff Physician Cardiology 08/19/21 Rahul Knight, RN Research Nurse 09/03/21 Production Bow Maker Relationship Specialty Start Date End Date Daksha Turner MD [address] [place], [place] [id number] PCP - General Family Medicine 07/18/21 Sary Jonas, [facility] [employer] Turner [employer] Counter Oncology 08/11/21 Lalo Black MD [address] [place] [address] Primary Staff Physician Cardiology 08/19/21 Rahul Knight, RN Research Nurse 09/03/21 Production Bow Maker Relationship Specialty Start Date End Date Daksha Turner MD [address] [place] [address] PCP - General Family Medicine 07/18/21 Sary Jonas, [facility] [employer] Turner [employer] Counter Oncology 08/11/21 Lalo Black MD [address] [place] [address] Primary Staff Physician Cardiology 08/19/21 Rahul Knight, RN Research Nurse 09/03/21 Production Bow Maker Relationship Specialty Start Date End Date Daksha Turner MD [address] [place], [place] [id number] PCP - General Family Medicine 07/18/21 Sary Jonas, [facility] [employer] Turner [employer] Counter Oncology 08/11/21 Lalo Black MD [address] [place] [address] Primary Staff Physician Cardiology 08/19/21 Rahul Knight, RN Research Nurse 09/03/21 Haylee Wilburn MD [address] [place], [place] [id number] Oncology 12/08/21 Alfredo Xavier MD [address] [facility] [place] [address] Radiation Oncology 12/08/21 Production Bow Maker Relationship Specialty Start Date End Date Daksha Turner MD [address] [place], [place] [id number] PCP - General Family Medicine 07/18/21 Sary Jonas, [facility] [employer] Turner [employer] Counter Oncology 08/11/21 Lalo Black MD [address] [place] [address] Primary Staff Physician Cardiology 08/19/21 Rahul Knight, RN Research Nurse 09/03/21 Haylee Wilburn MD [address] [place] [address] Oncology 12/08/21 Alfredo Xavier MD [address] [facility] [place] [address] Radiation Oncology 12/08/21 Production Bow Maker Relationship Specialty Start Date End Date Daksha Turner MD [address] [place], [place] [id number] PCP - General Family Medicine 07/18/21 Sary Jonas, [facility] [employer] Turner [employer] Counter Oncology 08/11/21 Lalo Black MD [address] [place] [address] Primary Staff Physician Cardiology 08/19/21 Rahul Knight, RN Research Nurse 09/03/21 Haylee Wilburn MD [address] [place] [address] Oncology 12/08/21 Alfredo Xavier MD [address] [place] [address] Radiation Oncology 12/08/21 Production Bow Maker Relationship Specialty Start Date End Date Daksha Turner MD [address] [facility] [place], [place] [id number] PCP - General Family Medicine 07/18/21 Sary Jonas, [facility] [employer] Turner [employer] Counter Oncology 08/11/21 Lalo Black MD [address] [place] [address] Primary Staff Physician Cardiology 08/19/21 Rahul Knight, RN Research Nurse 09/03/21 Haylee Wilburn MD [address] [place] [address] Oncology 12/08/21 [place] [address] [place] [address] Radiation Oncology 12/08/21 Production Bow Maker Relationship Specialty Start Date End Date Daksha Turner MD [address] [facility] [place], [place] [id number] PCP - General Family Medicine 07/18/21 Sary Jonas, [facility] [employer] Turner [employer] Counter Oncology 08/11/21 Lalo Black MD [address] [place] [address] Primary Staff Physician Cardiology 08/19/21 Rahul Knight, RN Research Nurse 09/03/21 Haylee Wilburn MD [address] [employer] [place], [place] 2892604 [phone] Oncology 12/08/21 [place] [address] [place] [address] Radiation Oncology 12/08/21 Production Bow Maker Relationship Specialty Start Date End Date Daksha Turner MD [address] [place], [place] [id number] PCP - General Family Medicine 07/18/21 [facility] [employer] [employer] Counter Oncology 08/11/21 Lalo Black MD [address] [place], [place] [id number] Primary Staff Physician Cardiology 08/19/21 Rahul Knight, RN Research Nurse 09/03/21 Haylee Wilburn MD 132[facility] CenterSafe[facility] [place], [place] [id number] Oncology 12/08/21 [place] [address] [place] [address] Radiation Oncology 12/08/21 Production Bow Maker Relationship Specialty Start Date End Date Daksha Turner MD [address] [place], [place] [id number] PCP - General Family Medicine 07/18/21 [facility] [employer] Counter Oncology 08/11/21 Lalo Black MD [address] [place], [place] [id number] Primary Staff Physician Cardiology 08/19/21 Rahul Knight, RN Research Nurse 09/03/21 Haylee Wilburn MD [address] [employer] [place], [place] 7076508 Oncology 12/08/21 [place] [address] [place] [address] [place] [address] Radiation Oncology 12/08/21 Production Bow Maker Relationship Specialty Start Date End Date Daksha Turner MD [address] [place] [address] PCP - General Family Medicine 07/18/21 Sary Jonas, [facility] [employer] Turner [employer] Counter Oncology 08/11/21 Lalo Black MD [address] [place] [address] Primary Staff Physician Cardiology 08/19/21 Rahul Knight, RN Research Nurse 09/03/21 Haylee Wilburn MD [address] [employer] [place], [place] [id number] Oncology 12/08/21 [place] [address] [place] [address] [place] [address] Radiation Oncology 12/08/21 Production Bow Maker Relationship Specialty Start Date End Date Daksha Turner MD [address] [place] [address] PCP - General Family Medicine 07/18/21 Sary Jonas, [facility] [employer] Turner [employer] Counter Oncology 08/11/21 Lalo Black MD [address] [place] [address] Primary Staff Physician Cardiology 08/19/21 Rahul Knight, RN Research Nurse 09/03/21 Haylee Wilburn MD [address] [employer] [place], [place] 6285045 [phone] Oncology 12/08/21 Alfredo Xavier MD [address] [facility] [place] [address] Radiation Oncology 12/08/21 Production Bow Maker Relationship Specialty Start Date End Date Daksha Turner MD [address] [place], [place] [id number] PCP - General Family Medicine 07/18/21 Sary Jonas, [facility] [employer] Turner [employer] Counter Oncology 08/11/21 Lalo Black MD [address] [place] [address] Primary Staff Physician Cardiology 08/19/21 Rahul Knight, RN Research Nurse 09/03/21 Haylee Wilburn MD [address] [place] [address] Oncology 12/08/21 Alfredo Xavier MD [address] [facility] [place] [address] Radiation Oncology 12/08/21 Sayra Tello MD [address] [facility] [place] [address] Cardiology 02/12/22 Production Bow Maker Relationship Specialty Start Date End Date Daksha Turner MD [address] [place], [place] 112341 PCP - General Family Medicine 07/18/21 Sary Jonas, [facility] [employer] Turner [employer] Counter Oncology 08/11/21 Lalo Black MD [address] [place] [address] Primary Staff Physician Cardiology 08/19/21 Rahul Knight, RN Research Nurse 09/03/21 Haylee Wilburn MD [address] [facility] [place], [place] [id number] [phone] Oncology 12/08/21 Alfredo Xavier MD [address] [facility] [place] [address] Radiation Oncology 12/08/21 Sayra Tello MD [address] [place], [place] 8994[address] Cardiology 02/12/22 Production Bow Maker Relationship Specialty Start Date End Date Daksha Turner MD [address] [place], [place] [id number] PCP - General Family Medicine 07/18/21 Sary Jonas, [facility] [employer] Turner [employer] Counter Oncology 08/11/21 Lalo Black MD [address] [place] [address] Primary Staff Physician Cardiology 08/19/21 Rahul Knight, RN Research Nurse 09/03/21 Haylee Wilburn MD [address] [place], [place] 6255671 [phone] Oncology 12/08/21 Alfredo Xavier MD [address] [facility] [place] [address] Radiation Oncology 12/08/21 Sayra Tello MD [address] [place], [place] 8387[address] Cardiology 02/12/22 Production Bow Maker Relationship Specialty Start Date End Date Daksha Turner MD [address] [facility] [place], [place] [id number] PCP - General Family Medicine 07/18/21 Sary Jonas, [facility] [employer] Turner [employer] Counter Oncology 08/11/21 Lalo Black MD [address] [place] [address] Primary Staff Physician Cardiology 08/19/21 Rahul Knight, RN Research Nurse 09/03/21 Haylee Wilburn MD [address] [employer] [place], [place] 8000536 [phone] Oncology 12/08/21 Alfreod Xavier MD [address] [facility] [place] [address] Radiation Oncology 12/08/21 Sayra Tello MD [address] [place], [place] 5750808 Cardiology 02/12/22 Production Bow Maker Relationship Specialty Start Date End Date Daksha Turner MD [address] [place] [address] PCP - General Family Medicine 07/18/21 Sary Jonas [facility] [employer] Counter Oncology 08/11/21 Lalo Black MD [address] [place] [address] Primary Staff Physician Cardiology 08/19/21 Rahul Knight, RN Research Nurse 09/03/21 Haylee Wilburn MD [address] [employer] [place], [place] [id number] Oncology 12/08/21 Alfredo Xavier MD [address] [place] [address] Radiation Oncology 12/08/21 Sayra Tello MD [address] [place] [address] Cardiology 02/12/22 Production Bow Maker Relationship Specialty Start Date End Date Daksha Turner MD [address] [place] [address] PCP - General Family Medicine 07/18/21 Sary Jonas, [facility] [employer] Oncology 08/11/21 Lalo Black MD [address] [place] [address] Primary Staff Physician Cardiology 08/19/21 Rahul Knight, RN Research Nurse 09/03/21 Haylee Wilburn MD [address] [place] [address] Oncology 12/08/21 Alfredo Xavier MD [address] [facility] [place] [address] Radiation Oncology 12/08/21 Sayra Tello MD [address] [facility] [address] [place], [place] 8669708 Cardiology 02/12/22 Production Bow Maker Relationship Specialty Start Date End Date Daksha Turner MD [address] [place] [address] PCP - General Family Medicine 07/18/21 Sary Jonas, [facility] [employer] Oncology 08/11/21 Lalo Black MD [address] [place] [address] Primary Staff Physician Cardiology 08/19/21 Rahul Knight, RN Research Nurse 09/03/21 Haylee Wilburn MD [address] [employer] [place], [place] [id number] Oncology 12/08/21 Alfredo Xavier MD [address] [facility] [place] [address] Radiation Oncology 12/08/21 Sayra Tello MD [address] [place] [id number] Cardiology 02/12/22 Production Bow Maker Relationship Specialty Start Date End Date Daksha Turner MD [address], [place] [id number] PCP - General Family Medicine 07/18/21 Sary Jonas, [facility] Buffing [employer] Counter Oncology 08/11/21 Lalo Black MD [address] [place] [address] Primary Staff Physician Cardiology 08/19/21 Rahul Knight, RN Research Nurse 09/03/21 Haylee Wilbunr MD [address] [place] [address] Oncology 12/08/21 Alfredo Xavier MD [address] [facility] [place] [address] Radiation Oncology 12/08/21 Sayra Tello MD [address] [place] [address] Cardiology 02/12/22 Production Bow Maker Relationship Specialty Start Date End Date Daksha Turner MD [address] [place] [address] PCP - General Family Medicine 07/18/21 Sary Jonas, [facility] [employer] Oncology 08/11/21 Lalo Black MD [address] [place], [place] [id number] Primary Staff Physician Cardiology 08/19/21 Rahul Knight, RN Research Nurse 09/03/21 Haylee Wilburn MD [address] [place] [address] Oncology 12/08/21 Alfredo Xavier MD [address] [facility] [place] [address] Radiation Oncology 12/08/21 Sayra Tello MD [address] [place] [address] Cardiology 02/12/22 Production Bow Maker Relationship Specialty Start Date End Date Daksha Turner MD [address] [facility] [place], [place] [id number] PCP - General Family Medicine 07/18/21 Sary Jonas, [facility] [employer] Counter Oncology 08/11/21 Lalo Black MD [address] [place], [place] [id number] Primary Staff Physician Cardiology 08/19/21 Rahul Knight, RN Research Nurse 09/03/21 Haylee Wilburn MD [address] [facility] [place] [place], [place] [phone] Oncology 12/08/21 Alfredo Xavier MD [address] [place] [address] Radiation Oncology 12/08/21 Sarya Tello MD [address] [place] [address] Cardiology 02/12/22 Production Bow Maker Relationship Specialty Start Date End Date Daksha Turner MD [address] [place], [place] [id number] PCP - General Family Medicine 07/18/21 Sary Jonas, [facility] [employer] Oncology 08/11/21 Lalo Black MD [address] [place] [address] Primary Staff Physician Cardiology 08/19/21 Rahul Knight, RN Research Nurse 09/03/21 Haylee Wilburn MD [address] [place], [place] [id number] Oncology 12/08/21 Alfredo Xavier MD [address] [place] [address] Radiation Oncology 12/08/21 Sayra Tello MD [address] [place] [address] Cardiology 02/12/22 Production Bow Maker Relationship Specialty Start Date End Date Daksha Turner MD [address], [place] [id number] PCP - General Family Medicine 07/18/21 Sary Jonas LSW [employer] Oncology 08/11/21 Lalo Black MD [address] [place] [address] Primary Staff Physician Cardiology 08/19/21 Rahul Knight, RN Research Nurse 09/03/21 Haylee Wilburn MD [address] [place], [place] [id number] Oncology 12/08/21 Alfredo Xavier MD [address] [place] [address] Radiation Oncology 12/08/21 Sayra Tello MD [address] [place] [address] Cardiology 02/12/22 Production Bow Maker Relationship Specialty Start Date End Date Daksha Turner MD [address] [place] [address] PCP - General Family Medicine 07/18/21 Sayr Jonas LSW [employer] Oncology 08/11/21 Lalo Black MD [address] [place] [address] Primary Staff Physician Cardiology 08/19/21 Rahul Knight, RN Research Nurse 09/03/21 Haylee Wilburn MD [address] [place] [address] Oncology 12/08/21 Alfredo Xavier MD [address] [facility] [place] [phone] Radiation Oncology 12/08/21 Sayra Tello MD [address] [place] [address] Cardiology 02/12/22 Team Status: Active [...] DO Attending Provider, Referring Palmer burton Active Production Bow Maker Relationship Specialty Start Date End Date Daksha Turner MD [address] [place] [address] PCP - General Family Medicine 07/18/21 Sary Jonas [facility] [employer] Counter Oncology 08/11/21 Lalo Black MD [address] [place] [address] Primary Staff Physician Cardiology 08/19/21 Rahul Knight, RN Research Nurse 09/03/21 Haylee Wilburn MD [address] [place] [address] Oncology 12/08/21 Alfredo Xavier MD [address] [place] [phone] Radiation Oncology 12/08/21 Production Bow Maker Relationship Specialty Start Date End Date Daksha Turner MD [address] [place] [address] PCP - General Family Medicine 07/18/21 Sary Jonas [facility] [employer] Counter Oncology 08/11/21 Lalo Black MD [address] [place] [address] Primary Staff Physician Cardiology 08/19/21 Rahul Knight, RN Research Nurse 09/03/21 Haylee Wilburn MD [address] [place] [address] Oncology 12/08/21 Alfredo Xavier MD [address] [facility] [place] [facility] [place] [address] Radiation Oncology 12/08/21 Sayra Tello MD [address], [address] [place] [address] Cardiology 02/12/22 Team Status: Active Member Role [...] 2024 End: August 14, 2024 Gini Couch [employer] DEPARTMENT HEAD, GROUP FITNESS DEPARTMENT HEAD-C Attending Provider Active Start: August 14, 2024 End: August 14, 2024 Team Status: Inactive Member Role Status Dates Dr. Daksha Turner MD Primary Care Provider Acti ve Start: August 14, 2024 End: August 14, 2024 Gini Couch [employer] FITNESS DEPARTMENT HEAD, GROUP FITNESS DEPARTMENT HEAD-C Attending Provider Active Start: August 14, 2024 End: August 14, 2024 Gini Couch GROUP FITNESS DEPARTMENT HEAD, GROUP FITNESS DEPARTMENT HEAD-C Referring Provider Active Start: August 14, 2024 [...] Inactive Member Role/Relationship Status Dates Dr. Daksha uTrner MD Primary Care Provider Acti ve Start: [...] End: August 14, 2024 Gini Couch NP, GROUP FITNESS DEPARTMENT HEAD-C Attending Provider Active Start: August 14, 2024 End: August 14, 2024 Team Status: Inactive Member Role/Relationship Status Dates Dr. Daksha Turner MD Primary Care Provider Acti ve Start: August 14, 2024 End: August 14, 2024 Gini Couch NP, GROUP FITNESS DEPARTMENT HEAD-C Attending Provider Active Start: August 14, 2024 End: August 14, 2024 Gini Couch GROUP FITNESS DEPARTMENT HEAD, GROUP FITNESS DEPARTMENT HEAD-C Referring Provider Active Start: August 14, 2024 [...] ve Start: September 25, 2024 Gini Couch GROUP FITNESS DEPARTMENT HEAD, GROUP FITNESS DEPARTMENT HEAD-C Attending Provider Active Start: September 25, 2024 Gini Couch GROUP FITNESS DEPARTMENT HEAD, GROUP FITNESS DEPARTMENT HEAD-C Referring Provider Active Start: September 25, 2024 [...] ve Start: September 25, 2024 Gini Couch GROUP FITNESS DEPARTMENT HEAD, GROUP FITNESS DEPARTMENT HEAD-C Referring Provider Active Start: September 25, 2024 Gini Couch GROUP FITNESS DEPARTMENT HEAD, GROUP FITNESS DEPARTMENT HEAD-C Other Provider Active Sta rt: September 25, 2024 Dr. Moises Gaona MD Attending Provider Active S tart: September 25, 2024 Team Status: Active Member Role/Relationship Status Dates Dr. Daksha Turner MD Primary Care Provider Acti ve Start: September 26, 2024 Gini Couch GROUP FITNESS DEPARTMENT HEAD, GROUP FITNESS DEPARTMENT HEAD-C Attending Provider Active Start: September 26, 2024 Team Status: Active Member Role/Relationship Status Dates Dr. Daksha Turner MD Primary Care Provider Acti ve Start: September 26, 2024 iGni Couch GROUP FITNESS DEPARTMENT HEAD, GROUP FITNESS DEPARTMENT HEAD-C Attending Provider Active Start: September 26, 2024 Team Status: Inactive Member Role/Relationship Status Dates Dr. Daksha Turner MD Primary Care Provider Acti ve Start: September 25, 2024 End: September 25, 2024 Gini Couch GROUP FITNESS DEPARTMENT HEAD, GROUP FITNESS DEPARTMENT HEAD-C Attending Provider Active Start: September 25, 2024 End: September 25, 2024 Gini Couch GROUP FITNESS DEPARTMENT HEAD, GROUP FITNESS DEPARTMENT HEAD-C Referring Provider Active Start: September 25, 2024 End: September 25, 2024 Team Status: Inactive Member Role/Relationship Status Dates Dr. Daksha Turner MD Primary Care Provider Acti ve Start: October 02, 2024 End: October 02, 2024 Dr. Daksha Turner MD Referring Provider Active Start: October 02, 2024 End: October 02, 2024 Gini Couch GROUP FITNESS DEPARTMENT HEAD, GROUP FITNESS DEPARTMENT HEAD-C Attending Provider Active Start: October 02, 2024 End: October 02, 2024 Team Status: Inactive Member Role/Relationship Status [...] 2024 End: August 14, 2024 Gini Couch GROUP FITNESS DEPARTMENT HEAD, GROUP FITNESS DEPARTMENT HEAD-C Attending Provider Active Start: August 14, 2024 End: August 14, 2024 Team Status: Inactive Member Role/Relationship Status Dates Dr. Daksha Turner MD Primary Care Provider Acti ve Start: August 14, 2024 End: August 14, 2024 Gini Couch GROUP FITNESS DEPARTMENT HEAD, GROUP FITNESS DEPARTMENT HEAD-C Attending Provider Active Start: August 14, 2024 End: August 14, 2024 Gini Couch GROUP FITNESS DEPARTMENT HEAD, GROUP FITNESS DEPARTMENT HEAD-C Referring Provider Active Start: August 14, 2024 [...] S tart: September 24, 2024 Team Status: Inactive Member Role/Relationship Status Dates Dr. Daksha Turner MD Primary Care Provider Acti ve Start: September 25, 2024 End: September 25, 2024 Gini Couch GROUP FITNESS DEPARTMENT HEAD, GROUP FITNESS DEPARTMENT HEAD-C Attending Provider Active Start: September 25, 2024 End: September 25, 2024 Gini Cuoch GROUP FITNESS DEPARTMENT HEAD, GROUP FITNESS DEPARTMENT HEAD-C Referring Provider Active Start: September 25, 2024 [...] ve Start: September 25, 2024 Gini Couch GROUP FITNESS DEPARTMENT HEAD, GROUP FITNESS DEPARTMENT HEAD-C Referring Provider Active Start: September 25, 2024 Gini Couch NP, GROUP FITNESS DEPARTMENT HEAD-C Other Provider Active Sta rt: September 25, 2024 Dr. Moises Gaona MD Attending Provider Active S tart: September 25, 2024 Team Status: Active Member Role/Relationship Status Dates Dr. Daksha Turner MD Primary Care Provider Acti ve Start: September 26, 2024 Gini Couch GROUP FITNESS DEPARTMENT HEAD, GROUP FITNESS DEPARTMENT HEAD-C Attending Provider Active Start: September 26, 2024 Team Status: Inactive Member Role/Relationship Status Dates Dr. Daksha Turner MD Primary Care Provider Acti ve Start: October 02, 2024 End: October 02, 2024 Dr. Daksha Turner MD Referring Provider Active Start: October 02, 2024 End: October 02, 2024 Gini Couch GROUP FITNESS DEPARTMENT HEAD, GROUP FITNESS DEPARTMENT HEAD-C Attending Provider Active Start: October 02, 2024 End: October 02, 2024 Team Status: Inactive Member Role/Relationship Status Dates Dr. Daksha Turner MD Primary Care Provider Acti ve Start: October 02, 2024 End: October 02, 2024 Gini Couch GROUP FITNESS DEPARTMENT HEAD, GROUP FITNESS DEPARTMENT HEAD-C Attending Provider Active Start: October 02, 2024 End: October 02, 2024 Gini Couch GROUP FITNESS DEPARTMENT HEAD, GROUP FITNESS DEPARTMENT HEAD-C Referring Provider Active Start: October 02, 2024 [...] or prosecute any alcohol or drug abuse patient.[facility] CenterIn the event this information is protected by the Federal Confidentiality of Alcohol and Drug Abuse Patient Records regulations: The Federal rules restrict any use of the information to criminally investigate or prosecute any alcohol or drug abuse patient.[facility] CenterIn the event this information is protected by the Federal Confidentiality of Alcohol and Drug Abuse Patient Records regulations: The Federal rules restrict any use of the information to criminally investigate or prosecute any alcohol or drug abuse patient.[facility] CenterIn the event this information is protected by the Federal Confidentiality of Alcohol and Drug Abuse Patient Records regulations: The Federal rules restrict any use of the information to criminally investigate or prosecute any alcohol or drug abuse patient.[facility] CenterIn the event this information is protected by the Federal Confidentiality of Alcohol and Drug Abuse Patient Records regulations: The Federal rules restrict any use of the information to criminally investigate or prosecute any alcohol or drug abuse patient.[facility] CenterIn the event this information is protected by the Federal Confidentiality of Alcohol and Drug Abuse Patient Records regulations: The Federal rules restrict any use of the information to criminally investigate or prosecute any alcohol or drug abuse patient.[facility] CenterIn the event this information is protected by the Federal Confidentiality of Alcohol and Drug Abuse Patient Records regulations: The Federal rules restrict any use of the information to criminally investigate or prosecute any alcohol or drug abuse patient.[facility] CenterIn the event this information is protected by the Federal Confidentiality of Alcohol and Drug Abuse Patient Records regulations: The Federal rules restrict any use of the information to criminally investigate or prosecute any alcohol or drug abuse patient.[facility] CenterIn the event this information is protected by the Federal Confidentiality of Alcohol and Drug Abuse Patient Records regulations: The Federal rules restrict any use of the information to criminally investigate or prosecute any alcohol or drug abuse patient.[facility] CenterIn the event this information is protected by the Federal Confidentiality of Alcohol and Drug Abuse Patient Records regulations: The Federal rules restrict any use of the information to criminally investigate or prosecute any alcohol or drug abuse patient.[facility] CenterIn the event this information is protected by the Federal Confidentiality of Alcohol and Drug Abuse Patient Records regulations: The Federal rules restrict any use of the information to criminally investigate or prosecute any alcohol or drug abuse patient.[facility] CenterIn the event this information is protected by the Federal Confidentiality of Alcohol and Drug Abuse Patient Records regulations: The Federal rules restrict any use of the information to criminally investigate or prosecute any alcohol or drug abuse patient.[facility] CenterIn the event this information is protected by the Federal Confidentiality of Alcohol and Drug Abuse Patient Records regulations: The Federal rules restrict any use of the information to criminally investigate or prosecute any alcohol or drug abuse patient.[facility] CenterIn the event this information is protected by the Federal Confidentiality of Alcohol and Drug Abuse Patient Records regulations: The Federal rules restrict any use of the information to criminally investigate or prosecute any alcohol or drug abuse patient.[facility] CenterIn the event this information is protected by the Federal Confidentiality of Alcohol and Drug Abuse Patient Records regulations: The Federal rules restrict any use of the information to criminally investigate or prosecute any alcohol or drug abuse patient.[facility] CenterIn the event this information is protected by the Federal Confidentiality of Alcohol and Drug Abuse Patient Records regulations: The Federal rules restrict any use of the information to criminally investigate or prosecute any alcohol or drug abuse patient.[facility] CenterIn the event this information is protected by the Federal Confidentiality of Alcohol and Drug Abuse Patient Records regulations: The Federal rules restrict any use of the information to criminally investigate or prosecute any alcohol or drug abuse patient.[facility] CenterIn the event this information is protected by the Federal Confidentiality of Alcohol and Drug Abuse Patient Records regulations: The Federal rules restrict any use of the information to criminally investigate or prosecute any alcohol or drug abuse patient.[facility] CenterIn the event this information is protected by the Federal Confidentiality of Alcohol and Drug Abuse Patient Records regulations: The Federal rules restrict any use of the information to criminally investigate or prosecute any alcohol or drug abuse patient.[facility] CenterIn the event this information is protected by the Federal Confidentiality of Alcohol and Drug Abuse Patient Records regulations: The Federal rules restrict any use of the information to criminally investigate or prosecute any alcohol or drug abuse patient.[facility] CenterIn the event this information is protected by the Federal Confidentiality of Alcohol and Drug Abuse Patient Records regulations: The Federal rules restrict any use of the information to criminally investigate or prosecute any alcohol or drug abuse patient.[facility] CenterIn the event this information is protected by the Federal Confidentiality of Alcohol and Drug Abuse Patient Records regulations: The Federal rules restrict any use of the information to criminally investigate or prosecute any alcohol or drug abuse patient.[facility] CenterIn the event this information is protected by the Federal Confidentiality of Alcohol and Drug Abuse Patient Records regulations: The Federal rules restrict any use of the information to criminally investigate or prosecute any alcohol or drug abuse patient.[facility] CenterIn the event this information is protected by the Federal Confidentiality of Alcohol and Drug Abuse Patient Records regulations: The Federal rules restrict any use of the information to criminally investigate or prosecute any alcohol or drug abuse patient.[facility] CenterIn the event this information is protected by the Federal Confidentiality of Alcohol and Drug Abuse Patient Records regulations: The Federal rules restrict any use of the information to criminally investigate or prosecute any alcohol or drug abuse patient.[facility] CenterIn the event this information is protected by the Federal Confidentiality of Alcohol and Drug Abuse Patient Records regulations: The Federal rules restrict any use of the information to criminally investigate or prosecute any alcohol or drug abuse patient.[facility] CenterIn the event this information is protected by the Federal Confidentiality of Alcohol and Drug Abuse Patient Records regulations: The Federal rules restrict any use of the information to criminally investigate or prosecute any alcohol or drug abuse patient.[facility] CenterIn the event this information is protected by the Federal Confidentiality of Alcohol and Drug Abuse Patient Records regulations: The Federal rules restrict any use of the information to criminally investigate or prosecute any alcohol or drug abuse patient.[facility] CenterIn the event this information is protected by the Federal Confidentiality of Alcohol and Drug Abuse Patient Records regulations: The Federal rules restrict any use of the information to criminally investigate or prosecute any alcohol or drug abuse patient.[facility] CenterIn the event this information is protected by the Federal Confidentiality of Alcohol and Drug Abuse Patient Records regulations: The Federal rules restrict any use of the information to criminally investigate or prosecute any alcohol or drug abuse patient.[facility] CenterIn the event this information is protected by the Federal Confidentiality of Alcohol and Drug Abuse Patient Records regulations: The Federal rules restrict any use of the information to criminally investigate or prosecute any alcohol or drug abuse patient.[facility] CenterIn the event this information is protected by the Federal Confidentiality of Alcohol and Drug Abuse Patient Records regulations: The Federal rules restrict any use of the information to criminally investigate or prosecute any alcohol or drug abuse patient.[facility] CenterIn the event this information is protected by the Federal Confidentiality of Alcohol and Drug Abuse Patient Records regulations: The Federal rules restrict any use of the information to criminally investigate or prosecute any alcohol or drug abuse patient.[facility] CenterIn the event this information is protected by the Federal Confidentiality of Alcohol and Drug Abuse Patient Records regulations: The Federal rules restrict any use of the information to criminally investigate or prosecute any alcohol or drug abuse patient.[facility] CenterIn the event this information is protected by the Federal Confidentiality of Alcohol and Drug Abuse Patient Records regulations: The Federal rules restrict any use of the information to criminally investigate or prosecute any alcohol or drug abuse patient.[facility] CenterIn the event this information is protected by the Federal Confidentiality of Alcohol and Drug Abuse Patient Records regulations: The Federal rules restrict any use of the information to criminally investigate or prosecute any alcohol or drug abuse patient.[facility] CenterIn the event this information is protected by the Federal Confidentiality of Alcohol and Drug Abuse Patient Records regulations: The Federal rules restrict any use of the information to criminally investigate or prosecute any alcohol or drug abuse patient.[facility] CenterIn the event this information is protected by the Federal Confidentiality of Alcohol and Drug Abuse Patient Records regulations: The Federal rules restrict any use of the information to criminally investigate or prosecute any alcohol or drug abuse patient.[facility] CenterIn the event this information is protected by the Federal Confidentiality of Alcohol and Drug Abuse Patient Records regulations: The Federal rules restrict any use of the information to criminally investigate or prosecute any alcohol or drug abuse patient.[facility] CenterIn the event this information is protected by the Federal Confidentiality of Alcohol and Drug Abuse Patient Records regulations: The Federal rules restrict any use of the information to criminally investigate or prosecute any alcohol or drug abuse patient.[facility] CenterIn the event this information is protected by the Federal Confidentiality of Alcohol and Drug Abuse Patient Records regulations: The Federal rules restrict any use of the information to criminally investigate or prosecute any alcohol or drug abuse patient.[facility] CenterIn the event this information is protected by the Federal Confidentiality of Alcohol and Drug Abuse Patient Records regulations: The Federal rules restrict any use of the information to criminally investigate or prosecute any alcohol or drug abuse patient.[facility] CenterIn the event this information is protected by the Federal Confidentiality of Alcohol and Drug Abuse Patient Records regulations: The Federal rules restrict any use of the information to criminally investigate or prosecute any alcohol or drug abuse patient.[facility] CenterIn the event this information is protected by the Federal Confidentiality of Alcohol and Drug Abuse Patient Records regulations: The Federal rules restrict any use of the information to criminally investigate or prosecute any alcohol or drug abuse patient.[facility] CenterIn the event this information is protected by the Federal Confidentiality of Alcohol and Drug Abuse Patient Records regulations: The Federal rules restrict any use of the information to criminally investigate or prosecute any alcohol or drug abuse patient.[facility] CenterIn the event this information is protected by the Federal Confidentiality of Alcohol and Drug Abuse Patient Records regulations: The Federal rules restrict any use of the information to criminally investigate or prosecute any alcohol or drug abuse patient.[facility] CenterIn the event this information is protected by the Federal Confidentiality of Alcohol and Drug Abuse Patient Records regulations: The Federal rules restrict any use of the information to criminally investigate or prosecute any alcohol or drug abuse patient.[facility] CenterIn the event this information is protected by the Federal Confidentiality of Alcohol and Drug Abuse Patient Records regulations: The Federal rules restrict any use of the information to criminally investigate or prosecute any alcohol or drug abuse patient.[facility] CenterIn the event this information is protected by the Federal Confidentiality of Alcohol and Drug Abuse Patient Records regulations: The Federal rules restrict any use of the information to criminally investigate or prosecute any alcohol or drug abuse patient.[facility] CenterIn the event this information is protected by the Federal Confidentiality of Alcohol and Drug Abuse Patient Records regulations: The Federal rules restrict any use of the information to criminally investigate or prosecute any alcohol or drug abuse patient.[facility] CenterIn the event this information is protected by the Federal Confidentiality of Alcohol and Drug Abuse Patient Records regulations: The Federal rules restrict any use of the information to criminally investigate or prosecute any alcohol or drug abuse patient.[facility] CenterIn the event this information is protected by the Federal Confidentiality of Alcohol and Drug Abuse Patient Records regulations: The Federal rules restrict any use of the information to criminally investigate or prosecute any alcohol or drug abuse patient.[facility] CenterIn the event this information is protected by the Federal Confidentiality of Alcohol and Drug Abuse Patient Records regulations: The Federal rules restrict any use of the information to criminally investigate or prosecute any alcohol or drug abuse patient.[facility] CenterIn the event this information is protected by the Federal Confidentiality of Alcohol and Drug Abuse Patient Records regulations: The Federal rules restrict any use of the information to criminally investigate or prosecute any alcohol or drug abuse patient.[facility] CenterIn the event this information is protected by the Federal Confidentiality of Alcohol and Drug Abuse Patient Records regulations: The Federal rules restrict any use of the information to criminally investigate or prosecute any alcohol or drug abuse patient.[facility] CenterIn the event this information is protected by the Federal Confidentiality of Alcohol and Drug Abuse Patient Records regulations: The Federal rules restrict any use of the information to criminally investigate or prosecute any alcohol or drug abuse patient.[facility] CenterIn the event this information is protected by the Federal Confidentiality of Alcohol and Drug Abuse Patient Records regulations: The Federal rules restrict any use of the information to criminally investigate or prosecute any alcohol or drug abuse patient.[facility] CenterIn the event this information is protected by the Federal Confidentiality of Alcohol and Drug Abuse Patient Records regulations: The Federal rules restrict any use of the information to criminally investigate or prosecute any alcohol or drug abuse patient.[facility] CenterIn the event this information is protected by the Federal Confidentiality of Alcohol and Drug Abuse Patient Records regulations: The Federal rules restrict any use of the information to criminally investigate or prosecute any alcohol or drug abuse patient.[facility] CenterIn the event this information is protected by the Federal Confidentiality of Alcohol and Drug Abuse Patient Records regulations: The Federal rules restrict any use of the information to criminally investigate or prosecute any alcohol or drug abuse patient.[facility] CenterIn the event this information is protected by the Federal Confidentiality of Alcohol and Drug Abuse Patient Records regulations: The Federal rules restrict any use of the information to criminally investigate or prosecute any alcohol or drug abuse patient.[facility] CenterIn the event this information is protected by the Federal Confidentiality of Alcohol and Drug Abuse Patient Records regulations: The Federal rules restrict any use of the information to criminally investigate or prosecute any alcohol or drug abuse patient.[facility] CenterIn the event this information is protected by the Federal Confidentiality of Alcohol and Drug Abuse Patient Records regulations: The Federal rules restrict any use of the information to criminally investigate or prosecute any alcohol or drug abuse patient.[facility] CenterIn the event this information is protected by the Federal Confidentiality of Alcohol and Drug Abuse Patient Records regulations: The Federal rules restrict any use of the information to criminally investigate or prosecute any alcohol or drug abuse patient.[facility] CenterIn the event this information is protected by the Federal Confidentiality of Alcohol and Drug Abuse Patient Records regulations: The Federal rules restrict any use of the information to criminally investigate or prosecute any alcohol or drug abuse patient.[facility] CenterIn the event this information is protected by the Federal Confidentiality of Alcohol and Drug Abuse Patient Records regulations: The Federal rules restrict any use of the information to criminally investigate or prosecute any alcohol or drug abuse patient.[facility] CenterIn the event this information is protected by the Federal Confidentiality of Alcohol and Drug Abuse Patient Records regulations: The Federal rules restrict any use of the information to criminally investigate or prosecute any alcohol or drug abuse patient.[facility] CenterIn the event this information is protected by the Federal Confidentiality of Alcohol and Drug Abuse Patient Records regulations: The Federal rules restrict any use of the information to criminally investigate or prosecute any alcohol or drug abuse patient.[facility] CenterIn the event this information is protected by the Federal Confidentiality of Alcohol and Drug Abuse Patient Records regulations: The Federal rules restrict any use of the information to criminally investigate or prosecute any alcohol or drug abuse patient.[facility] CenterIn the event this information is protected by the Federal Confidentiality of Alcohol and Drug Abuse Patient Records regulations: The Federal rules restrict any use of the information to criminally investigate or prosecute any alcohol or drug abuse patient.[facility] CenterIn the event this information is protected by the Federal Confidentiality of Alcohol and Drug Abuse Patient Records regulations: The Federal rules restrict any use of the information to criminally investigate or prosecute any alcohol or drug abuse patient.[facility] CenterIn the event this information is protected by the Federal Confidentiality of Alcohol and Drug Abuse Patient Records regulations: The Federal rules restrict any use of the information to criminally investigate or prosecute any alcohol or drug abuse patient.[facility] CenterIn the event this information is protected by the Federal Confidentiality of Alcohol and Drug Abuse Patient Records regulations: The Federal rules restrict any use of the information to criminally investigate or prosecute any alcohol or drug abuse patient.[facility] CenterIn the event this information is protected by the Federal Confidentiality of Alcohol and Drug Abuse Patient Records regulations: The Federal rules restrict any use of the information to criminally investigate or prosecute any alcohol or drug abuse patient.[facility] CenterIn the event this information is protected by the Federal Confidentiality of Alcohol and Drug Abuse Patient Records regulations: The Federal rules restrict any use of the information to criminally investigate or prosecute any alcohol or drug abuse patient.[facility] CenterIn the event this information is protected by the Federal Confidentiality of Alcohol and Drug Abuse Patient Records regulations: The Federal rules restrict any use of the information to criminally investigate or prosecute any alcohol or drug abuse patient.[facility] CenterIn the event this information is protected by the Federal Confidentiality of Alcohol and Drug Abuse Patient Records regulations: The Federal rules restrict any use of the information to criminally investigate or prosecute any alcohol or drug abuse patient.[facility] CenterIn the event this information is protected by the Federal Confidentiality of Alcohol and Drug Abuse Patient Records regulations: The Federal rules restrict any use of the information to criminally investigate or prosecute any alcohol or drug abuse patient.[facility] CenterIn the event this information is protected by the Federal Confidentiality of Alcohol and Drug Abuse Patient Records regulations: The Federal rules restrict any use of the information to criminally investigate or prosecute any alcohol or drug abuse patient.[facility] CenterIn the event this information is protected by the Federal Confidentiality of Alcohol and Drug Abuse Patient Records regulations: The Federal rules restrict any use of the information to criminally investigate or prosecute any alcohol or drug abuse patient.[facility] CenterIn the event this information is protected by the Federal Confidentiality of Alcohol and Drug Abuse Patient Records regulations: The Federal rules restrict any use of the information to criminally investigate or prosecute any alcohol or drug abuse patient.[facility] CenterIn the event this information is protected by the Federal Confidentiality of Alcohol and Drug Abuse Patient Records regulations: The Federal rules restrict any use of the information to criminally investigate or prosecute any alcohol or drug abuse patient.[facility] CenterIn the event this information is protected by the Federal Confidentiality of Alcohol and Drug Abuse Patient Records regulations: The Federal rules restrict any use of the information to criminally investigate or prosecute any alcohol or drug abuse patient.[facility] CenterIn the event this information is protected by the Federal Confidentiality of Alcohol and Drug Abuse Patient Records regulations: The Federal rules restrict any use of the information to criminally investigate or prosecute any alcohol or drug abuse patient.[facility] CenterIn the event this information is protected by the Federal Confidentiality of Alcohol and Drug Abuse Patient Records regulations: The Federal rules restrict any use of the information to criminally investigate or prosecute any alcohol or drug abuse patient.[facility] CenterIn the event this information is protected by the Federal Confidentiality of Alcohol and Drug Abuse Patient Records regulations: The Federal rules restrict any use of the information to criminally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
--- NOTE | 2024-10-18 22:48 | CT_ITS ---
PROCEDURE: ABDOMEN/PELVIS WITHOUT CONT 10/18/2024 REASON FOR EXAM: PAIN TECHNIQUE: ABDOMEN/PELVIS WITHOUT CONT Noncontrast technique limits evaluation of the abdominal and pelvic viscera. Coronal and Sagittal reconstruction series were provided. One or more dose reduction techniques were used (e.g., Automated exposure control, adjustment of the mA and/or kV according to patient size, use of iterative reconstruction technique). RADIATION DOSE SUMMARY: CTDlvol: 21 mGy DLP: 1073 mGycm COMPARISON: 06/13/2024 FINDINGS: Peripheral right middle lobe scar/atelectasis with bronchiectasis. Upper limits of normal heart size, small pericardial effusion. Partially imaged expansile lytic lesion, right 6th rib, likely metastatic disease. Tiny bilateral pleural effusions. Unremarkable liver, gallbladder, pancreas, spleen, adrenal glands. Status post right-sided nephrectomy. Normal left kidney. No hydronephrosis normal bladder. Prostate. No retroperitoneal or pelvic adenopathy. No free air. Infrarenal aortic aneurysm, measuring 4.1 cm maximum AP dimension, stable. The bilateral common iliac arteries are also dilated, measuring up to 2.1 cm on the right, and 2.2 cm on the left, also stable. Nonobstructed bowel. Normal appendix. Diverticulosis. No acute large bowel findings. Lumbar spine degeneration. No acute abdominal wall findings. There is redemonstration of expansile lytic lesion, in the L4 posterior elements, also consistent with metastatic disease. CT/Abdomen/Pelvis without Cont IMPRESSION: No acute abdominopelvic findings. Status post right-sided nephrectomy with multifocal bone metastatic disease. Reading Location: [place] [address]
--- NOTE | 2024-10-18 22:50 | RAD_ITS ---
PROCEDURE: CHEST PA AND LATERAL 10/18/2024 REASON FOR EXAM: FEELING UNWELL TECHNIQUE: CHEST PA AND LATERAL COMPARISON: 02/10/2024 CT. FINDINGS: Right lateral chest wall masslike lesion may represent a previously expansile right 6th rib lesion. No consolidation. The heart is normal in size. RAD/Chest PA and Lateral IMPRESSION: Right lateral chest wall mass. Reading Location: [id number]
--- NOTE | 2024-10-18 23:10 | ED.RN ---
PT IS UNAWARE OF CURRENT HOME MEDICATIONS.
[2024-10-19] VITALS (35 sets, daily range): BP systolic 87–112; BP diastolic 45–83; PULSE 68–89; RESP 15–22; TEMP 35.7–36.9; O2SAT 94–100; BMI 35.2; BMI 35.5; BMI 35.1
[2024-10-19 00:18] LABS: Color, Urine Yellow (Yellow); Glucose, Dipstick 100 mg/dl (Normal); Ketone-Dipstick Negative (Negative); Leukocyte Esterase-Dipstick Negative /ul (Negative); Mucous, Urine 0 SEEN /hpf (<or=2+); Nitrite-Dipstick Negative (Negative); Occult Blood-Urine 10 /ul (Negative); Protein-Dipstick 30 mg/dl (Negative); Specific Gravity, Urine 1.020 (1.002-1.030)
[2024-10-19 00:24] LABS: Urine Bilirubin Dipstick 1 mg/dL (Negative)
[2024-10-19 00:31] LABS: Red Blood Cells-Urine 0-5 SEEN /hpf (0-5); Squamous Epithelial Cells - UA 0-5 SEEN /hpf (0-5)
--- NOTE | 2024-10-19 02:13 | ED.RN ---
RECORDED SBP IN 80'S,BUT PT WAS ROLLING ON AND OFF THE BED BOSWELL MOVING HIS ARM. REASSESSED BP 102/68.
--- OUTSIDE RECORDS SUMMARY | 2024-10-19 02:35 | XMS RPT_ITS | CCD ---
Author Organization [facility] Care Team Providers Care Multiple Punch Press Operator Name Role Phone Unavailable, Family Physician Primary Care Physi terese Unavailable Jillian Maurer DO Primary Care Provider [phone] Daksha Turner MD Primary Care Provider Sumi HAHN, Sary Unavailable Unavailable Lalo Black MD Unavailable Rahul Knight RN Unavailable Madiha vailable [facility], Safia Unavailable Daksha Turner MD Primary Care Provider Sumi HAHN, Sary Unavailable Unavailable Lalo Black MD Unavailable Rahul Knight RN Unavailable Madiha vailable Brodman RP, Safia Unavailable Daksha Turner MD Primary Care Provider Lalo Black MD Unavailable Rahul Knight RN Unavailable Madiha vailable Haylee Wilburn MD Unavailable Alfredo Xaiver MD Unavailable Haylee Wilburn MD Unavailable Unavailable Primary Care Provider Unavailabl Dr. Jose Ramon Rincon Primary Care Provider Dr. Speedy Bass Emergency Provider Dr. Mehrdad Villalpando Admit Provider [phone] Dr. Mehrdad Villalpando Attending Provider Dr. Mehrdad [...] Siri Harris Attending Unavailable Daksha Turner Unavailable [phone] Andre Mota Unavailable Unavailable JasvirGerard lozarit Unavailable Aravind Hernandez Unavailable Unavailable Alyssa London Unavailable Nellie CLEMENT, Sayra Martinez Unavailable [phone] ORNSTEIN, KENNETH Referring Unavailable ROCCHIO, JILLIAN Primary [...] Johnny, Dr. Albright Primary Care Provider [phone] Dr. Kei Dunn Emergency Provider Dr. Dangelo [...] Unavailabl e DUC, EDWARD J Referring Unavailable DAKSAH TURNER B Primary Care Unavailabl e DUC, [...] DAKSHA TURNER Primary Care Unavailabl e DAKSHA TRUNER Primary Care Unavailabl e Dr. Kassy Banda Emergency Provider [phone] Dr. Alicia Dukes Admit Provider Dr. Alicia [...] Johnny, Dr. Daksha Lugo Referring Madiha vailable Grawn, Dr. Aravind Rodriguez Attending Unavailab le Johnny, [...] Rahul Candelaria Unavailable Madiha dee Tello MD, [facility] Unavailable Dr. Daksha Turner MD Primary Care Provider Dr. Daksha Turner MD Attending Provider [phone] Dr. Daksha Turner MD Referring Provider [phone] Dr. Isidra Chiu DO Attending Provider Dr. Isidra Chiu DO Referring Provider Dr. Daksha Turner MD Primary Care Provider Dr. Daksha Turner MD Attending Provider [phone] Johnny CLEMENT, Dr. Candelaria Referring Provider Ayan CLEMENT, Dr. Pierson Attending Provider [phone] Ayan CLEMENT, Dr. Pierson Referring Provider Johnny CLEMENT, Dr. Candelaria Primary Care Provider Khoa ART GALLERY DIRECTOR-C, Gini Attending Provider Khoa ART GALLERY DIRECTOR-C, Gini Referring Provider Jimenez CLEMENT, Dr. De Leon Attending Provider Khoa ART GALLERY DIRECTOR-C, Gini Other Provider Johnny CLEMENT, Dr. Candelaria [...] Care Unavailable Jimenez, Moises Attending Unavailable [facility], [facility] Unavailable Khoa, Gini Attending Unavailable Ranney, [facility] Primary Care Unavailable Ranney, Christopher Referring Unavailable Khoa, Gini Attending Unavailable Ranney, [facility] Primary Care Unavailable Khoa, Gini Referring Unavailable Couch, Gini Attending [facility] Unavailable Prah, Dangelo Attending Unavailable Prah, Dangelo Referring Unavailable Ranney, [facility] Primary Care Unavailable Praguillermo, Dangelo Attending Unavailable Prah, Dangelo Referring Unavailable Couch, Gini Referring Unavailable Ranney, [facility] Primary Care Unavailable Khoa, Gini Attending Unavailable Ranney, Christopher Referring Unavailable [facility], [facility] Unavailable Ranney, Christopher Attending Unavailable Ranney, Christopher Referring Unavailable Ranney, [facility] Primary Care Unavailable Ranney, Christopher Attending Unavailable Ranney, Christopher Attending Unavailable Ranney, [facility] Primary Care Unavailable Ranney, Christopher Referring Unavailable [facility], [facility] Unavailable Ranney, Christopher Referring Unavailable Gini Couch Attending Unavailable Allergies Allergy Classification Reported Allergen(s) Allergy Type Date of Onset Reaction(s) Facility (20 sources) Aspirin; Translations: [Aspirin TABS] Drug Allergy 5 Hives, Intolerance [facility] (20 sources) Lisinopril; Translations: [Lisinopril TABS] Drug Allergy 3 Angioedema [facility] (20 sources) Penicillins; Translations: [Penicillins] Allergy to substance 4 Intolerance [facility] (20 sources) Shellfish; Translations: [shellfish derived] Allergy to substance 0 Anaphylaxis [facility] (20 sources) Shellfish; Translations: [SHELLFISH CONTAINING PRODUCTS] Drug Allergy 0 Anaphylaxis, [facility] (20 sources) cultivated mushroom extract; Translations: [MUSHROOM] Drug Allergy 2 [facility] (3 sources) Aluminum aspirin Drug Allergy 9 [facility] (3 sources) Shellfish-deriv ed Products; Translations: [Shellfish-deri angy Products] Allergy to drug (finding) [facility] [place] [facility] 400 DO Work Phone: (1 source) Mushroom (edible) Unknown [facility] (1 source) Penicillin Drug Allergy Unknown [facility] (1 source) Shellfish Unknown [facility] (18 sources) guaiFENesin Drug Allergy 3 Bleeding [facility] (1 source) Aspirin Drug Allergy 5 [facility] Repository (1 source) guaiFENesin Drug Allergy 5 [facility] (1 source) Lisinopril Drug Allergy 5 [facility] (1 source) Mushroom (edible) Drug allergy (disorder) 5 [facility] Repository Medications Current Medications Medication Drug Class(es) Dates Sig (Normalized) Sig (Original) acetaminophen 500 mg oral tablet (20 sources) Start: 07-15-2021 take 2 tablets by mouth every six hours as needed acetaminophen (TYLENOL EXTRA STRENGTH) 500 mg tablet Take 2 tablets by mouth every 6 hours as needed for pain. 100 tablet 07/15/2021 Active Comment on above: Take 2 tablets by mo [facility] every 6 hours as needed for pain. [...] by mouth once daily. once daily. calcitriol 0.43596 mg oral capsule (2 sources) Vitamin D3 [...] sources) Anticholinergic, Corticosteroid, beta2-Adrenergic Agonist Start: 06-29-2022 Jpweytkbiub-Imyxbxcpc-K ilanter (Trelegy Ellipta) 100-62.5-25 mcg blister with [...] 29, 2022 11:13am Start: 05-22-2022 End: 06-29-2022 Cqqwdntvxzs-Pocsgztwv-Gzkcgw er (Trelegy Ellipta) 100-62.5-25 mcg blister with device Discontinued 1 NMA INHALATION DAILY May 22, 2022 12:00am June 29, 2022 11:14am Start: 05-22-2022 End: 06-29-2022 Kggrdavkrej-Oxwqwmhhf-Krgwaq er (Trelegy Ellipta) 100-62.5-25 mcg blister with device Discontinued 1 INH INHALATION DAILY May 21, 2022 11:00pm June 29, 2022 10:14am Start: 05-22-2022 End: 06-29-2022 Erxxcqtqmug-Gewlqusjt-Dvpygq er (Trelegy Ellipta) 100-62.5-25 mcg blister with [...] 10 mL injection (DEFINITY) polyethylene glycol 3350 38241 mg powder for oral solution (16 sources) [...] Start: 02-06-2022 End: 04-09-2022 polyethylene glycol 3350 (IN RALAX, GLYCOLAX) 17 gram/dose powder Comment on [...] (KLOR-CON ) 20 mEq packet Potassium Chloride* ([id number]) 20 MEQ PACKET Active 20 MEQ PO 0 07/22/2021 Discontinued (Clinical Decision) Potassium Chlori de* ([id number]) 20 MEQ PACKET Active 20 MEQ PO Comment on above: Take 1 tablet by kellie once daily. Potassium Chloride* ([id number]) 20 MEQ PACKET Active 20 MEQ PO [...] TAKE 2 TABLETS BY MO [facility] TO EQUAL 40 MG ONCE PER DAY Take [facility] daily. Take 2 tablets by mo [facility] once daily. TAKE 2 TABLETS BY MOUTH [...] tablet by mouth once daily Atenolol * (VXQYYGBE81 MG) 25 MG TABLET Discontinued 25 MG [...] needed for muscle spasms Cyclobenzaprine HCl * (FIZOJCBGIVTAGLZ62 MG) 10 MG TABLET Discontinued 10 MG [...] tablet by mouth once daily Hydrochlorothiazide * (IFRTIEBNQFOKGTN31 MG) 25 MG TABLET Discontinued 25 MG [...] on above: Take 1 capsule by [facility] once daily. iv contrast (will be provided [...] 2019 12:00am December 09, 2021 7:58am nystatin 750396 unt/ml oral suspension (20 sources) Polyene Antifungal Start: 3 End: 5 Nystatin 100,000 unit/mL suspension Discontinued [id number] U PO DAILY 60 0 June 29, 2022 12:00am August 14, 2024 1:19pm administer 1/2 of dose in each side of the mouth Start: 05-20-2022 End: 05-25-2022 Nystatin 100,000 unit/mL gianluca pension Discontinued [id number] U PO DAILY 35 7 0 May [...] Start: 09-26-2021 take 2 tablets by mo [facility] once daily predniSONE (DELTASONE) 20 mg tablet Take 2 tablets by mouth once daily. 90 tablet 1 09/26/2021 Active Start: 09-11-2021 take 3 tablets by mo ut once daily predniSONE (DELTASONE) 20 mg tablet Take 3 tablets by mouth once daily. 90 tablet 1 09/11/2021 Suspended Comment on above: Take 3 tablets by mo ut once daily. Take 2 tablets by mo [facility] once daily. 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] Onset: 2 [...] 5 02-06-2022 Episodic Other aftercare (1 source) buttermaker continuous churn (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 of 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; Translations: [buttermaker continuous churn (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 of 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] Onset: 2 Episodic Other aftercare (1 source) Other intermediate teacher (current) drug therapy; Translations: [Other mcfp (current) drug therapy] Onset: 2 Episodic Other [...] Respiratory failure; insufficiency; arrest (adult) (2 sources) Cwsyd-gh-exnvkhw respiratory failure 02-07-2022 Chronic Respiratory failure; insufficiency; [...] ERROR Unclassified (2 sources) RIGHT LAPAROSCOPIC NEPHRECTOMY (59807) 02-03-2022 Comment on above: RIGHT LAPAROSCOPIC N EPHRECTOMY (75905) Unclassified (2 sources) Body mass index (BMI) [...] Auto (Unsp spec) [#/Vol] 1.41 10*3/uL 0.83-4.51 [facility] Absolute neutrophil countOrd ered By: Gini Couch on 10-02-2024 Neutrophils (Bld) [#/Vol] 3.8 10*3/uL 2.0-7.7 [facility] Anion gap in Serum or Plasma Ordered By: Gini Couch on 10-02-2024 Anion gap [Moles/Vol] 13 mmol/L 5-15 [facility] Automated blood erythrocyte countOrdered By: Gini Couch on 10-02-2024 RBC (Bld) [#/Vol] 4.48 10*6/uL Low 4.6-6.2 [facility] Comment on above: Performed By: #### L 500.2500, L100.0100 ####[facility] [address] [place], [address] Automated blood hematocrit ( percentage)Ordered By: Gini Couch on 10-02-2024 Hematocrit (Bld) [Volume fraction] 43.4 % Normal 40-54 [facility] Comment on above: Performed By: #### L 500.2500, L100.0100 ####[facility] [address] [place], [address] Automated lymphocyte count a s percentage of total leukocytesOrdered By: Gini Couch on 10-02-2024 Lymphocytes/100 WBC Auto (Unsp spec) 24.7 % 19-41 [facility] BUN/creatinine ratioOrdered By: Gini Couch on 10-02-2024 Urea nitrogen/Creatinine [Mass ratio] 10.6 mg/mg 10-20 [facility] Basic Metabolic Profile (BMP )on 10-02-2024 BUN/CRE 10.6 RATIO Normal 10-20 [facility] Comment on above: Performed By: #### L 500.2500, L100.0100 ####[facility] [address] [place], [address] Calcium [Mass/Vol] 9.5 mg/dL Normal 7.6-11.0 [facility] Comment on above: Performed By: #### L 500.2500, L100.0100 ####[facility] [address] [place], [address] Chloride [Moles/Vol] 102 mmol/L Normal 98-108 [facility] Comment on above: Performed By: #### L 500.2500, L100.0100 ####[facility] [address], [address] CO2 [Moles/Vol] 20.4 mmol/L Low 21.0-32.0 [facility] Comment on above: Performed By: #### L 500.2500, L100.0100 ####[facility] [address] [place], [address] Creatinine [Mass/Vol] 2.65 mg/dL High 0.70-1.20 [facility] Comment on above: Performed By: #### L 500.2500, L100.0100 ####[facility] [address] [place], [address] GAP 13 Normal 5-15 [facility] Comment on above: Performed By: #### L 500.2500, L100.0100 ####[facility] [address] [place], [address] GFR/1.73 sq M.predicted among non-blacks MDRD (S/P/Bld) [Vol rate/Area] 27 mL/min/{1.73_m2} Low >60 [facility] Comment on above: Result Comment: mL/m in/1.73m2 CKD-EPI Creatinine Equation (2020) Performed By: #### L 500.2500, L100.0100 ####[facility] [address] [place], [address] Glucose [Mass/Vol] 131 mg/dL High 70-99 [facility] Comment on above: Performed By: #### L 500.2500, L100.0100 ####[facility] [address] [place], [address] Potassium [Moles/Vol] 4.5 mmol/L Normal 3.3-5.1 [facility] Comment on above: Result Comment: Hemo lysis present, Results??could be affected. ?? Performed By: #### L 500.2500, L100.0100 ####[facility] [address] [place], [address] Sodium [Moles/Vol] 136 mmol/L Normal 133-145 [facility] Comment on above: Performed By: #### L 500.2500, L100.0100 ####[facility] [address] [place], [address] Urea nitrogen [Mass/Vol] 28 mg/dL High 4-19 [facility] Comment on above: Performed By: #### L 500.2500, L100.0100 ####[facility] [address] [place], [address] Basophil percentageOrdered B y: Gini Couch on 10-02-2024 Basophils/100 WBC (Bld) 0.4 % Normal 0-1 [facility] Comment on above: Performed By: #### L 500.2500, L100.0100 ####[facility] [address] [place], [address] CBC W/Diff, Automatedon 09-06 Absolute Lymph 1.41 X10 3/uL Normal 0.83-4.51 [facility] Comment on above: Performed By: #### L 500.2500, L100.0100 ####[facility] [address] [place], [address] Absolute Neut 3.8 X10 3/uL Normal 2.0-7.7 [facility] Comment on above: Performed By: #### L 500.2500, L100.0100 ####[facility] [address] [place], [address] IG% 0.400 Normal 0.0-0.9 [facility] Comment on above: Result Comment: IG% - Immature Granulocytes (promyelocytes, myelocytes and metamyelocytes) > 1% indicates that a LEFT SHIFT is Present. Performed By: #### L 500.2500, L100.0100 ####[facility] [address] [place], [address] Lymphocytes/100 WBC (Bld) 24.7 % Normal 19-41 [facility] Comment on above: Performed By: #### L 500.2500, L100.0100 ####[facility] [address] [place], [address] Nucleated RBC (Bld) [#/Vol] 0.5 10*3/uL Normal 0-5 [facility] Comment on above: Performed By: #### L 500.2500, L100.0100 ####[facility] [address] [place], [address] RDW SD 61.3 fl High 35.1-43.9 [facility] Comment on above: Performed By: #### L 500.2500, L100.0100 ####[facility] [address] [place], [address] Carbon dioxide, total [Moles /volume] in Central venous bloodOrdered By: Gini Couch on 10-02-2024 CO2 [Moles/Vol] 20.4 mmol/L Low 21.0-32.0 [facility] Cardiology Visit Reporton Cardiology Visit Report [facility] [address] [place] [address] OFFICE VISIT Date of Service: 10/02/24 MR#: [id number] Acct: [id number] Name: YEFRI YANEZ Rep #: [id number] : 1965 Provider: JARVIS campos Age/Sex: 59/M [place] [facility] Status: Signed HPI HPI History of Present [...] the care of the oncologist here at [facility]. He had presented to the hospital [...] he had a DC cardioversion at the [facility] system in September 2021. He had previously been seeing a pin inserter regulator in the [facility] system. During this admission to the hospital in May 2022 his medications were optimized he was diuresed his creatinine actually improved and he was subsequently discharged to find a pin inserter regulator. He also had a history of atrial [...] air Intake Visit Reasons: 6-8 W FU Hot Roll Laminator Required: No Accompanied by: Self Is patient [...] ea 06/07 (more content not included)... Normal [facility] Chloride assayOrdered By: Eduardo Couch on 10-02-2024 Chloride [Moles/Vol] 102 mmol/L 98-108 [facility] Eosinophil percentageOrdered By: Gini Couch on 10-02-2024 Eosinophils/100 WBC (Bld) 1.9 % Normal 0-5 [facility] Comment on above: Performed By: #### L 500.2500, L100.0100 ####[facility] [address] [place], [address] Erythrocyte distribution wid th ratioOrdered By: Gini Couch on 10-02-2024 Erythrocyte distribution width (RBC) [Ratio] 17.2 % High 11.6-14.6 [facility] Comment on above: Performed By: #### L 500.2500, L100.0100 ####[facility] [address] [place], [address] Erythrocyte distribution wid th standard deviationOrdered By: Gini Couch on 10-02-2024 Erythrocyte distribution width (RBC) [Ratio] 61.3 fl High 35.1-43.9 [facility] Glomerular filtration rate ( GFR) estimation/1.73 sq m using serum, plasma, or whole bOrdered By: Gini Couch on 10-02-2024 GFR/1.73 sq M.predicted among non-blacks MDRD (S/P/Bld) [Vol rate/Area] 27 mL/min/{1.73_m2} Low >60 [facility] Comment on above: mL/min/1.73m2 CKD-EP I Creatinine Equation (2020) Hemoglobin measurementOrdere d By: Gini Couch on 10-02-2024 Hemoglobin (Bld) [Mass/Vol] 14.6 g/dL Normal 13.0-16.5 [facility] Comment on above: Performed By: #### L 500.2500, L100.0100 ####[facility] [address] [place], [address] Immature granulocytes/100 WB C Auto (Bld)Ordered By: Gini Couch on 10-02-2024 Immature granulocytes/100 WBC (Bld) 0.400 % 0.0-0.9 [facility] Comment on above: IG% - Immature Granu locytes (promyelocytes, myelocytes and metamyelocytes) > 1% indicates that a LEFT SHIFT is Present. MCV (mean corpuscular volume ) determinationOrdered By: Gini Couch on 10-02-2024 MCV (RBC) [Entitic vol] 96.9 fL High 80-94 [facility] Comment on above: Performed By: #### L 500.2500, L100.0100 ####[facility] [address] [place], [address] Mean corpuscular hemoglobin (MCH) determinationOrdered By: Gini Couch on 10-02-2024 MCH (RBC) [Entitic mass] 32.6 pg High 27.0-32.0 [facility] Comment on above: Performed By: #### L 500.2500, L100.0100 ####[facility] [address] [place], [address] Mean corpuscular hemoglobin concentration (MCHC) determinationOrdered By: Gini Couch on 10-02-2024 MCHC (RBC) [Mass/Vol] 33.6 g/dL Normal 32-36 [facility] Comment on above: Performed By: #### L 500.2500, L100.0100 ####[facility] [address] [place], [address] Mean platelet volume determi nationOrdered By: Gini Couch on 10-02-2024 Platelet mean volume (Bld) [Entitic vol] 10.7 fL Normal 6.2-12.0 [facility] Comment on above: Performed By: #### L 500.2500, L100.0100 ####[facility] [address] [place], [address] Monocyte percentageOrdered B y: Gini Couch on 10-02-2024 Monocytes/100 WBC (Bld) 5.4 % Normal 0-10 [facility] Comment on above: Performed By: #### L 500.2500, L100.0100 ####[facility] [address] [place], [address] Neutrophil percentageOrdered By: Gini Couch on 10-02-2024 Neutrophils/100 WBC (Bld) 67.2 % Normal 47-70 [facility] Comment on above: Performed By: #### L 500.2500, L100.0100 ####[facility] [address] [facility] [place], [address] Nucleated red blood cell per centageOrdered By: Gini Couch on 10-02-2024 Nucleated RBC/100 WBC (Bld) [Ratio] 0.5 % 0-5 [facility] Platelet countOrdered By: Eduardo Couch on 10-02-2024 Platelets (Bld) [#/Vol] 213 10*3/uL Normal 150-450 [facility] Comment on above: Performed By: #### L 500.2500, L100.0100 ####[facility] [address] [facility] [place], [place], [id number] Potassium measurement (mass/ volume)Ordered By: Gini Couch on 10-02-2024 Potassium (Unsp spec) [Mass/Vol] 4.5 mmol/L 3.3-5.1 [facility] Comment on above: Hemolysis present, R esults could be affected. Serum creatinine measurement (mass/volume)Ordered By: Gini Couch on 10-02-2024 Creatinine [Mass/Vol] 2.65 mg/dL High 0.70-1.20 [facility] Serum glucose measurement (m ass/volume)Ordered By: Gini Couch on 10-02-2024 Glucose [Mass/Vol] 131 mg/dL High 70-99 [facility] Serum or plasma calcium cory urement (mass/volume)Ordered By: Gini Couch on 10-02-2024 Calcium [Mass/Vol] 9.5 mg/dL 7.6-11.0 [facility] Serum or plasma urea nitroge n measurement (mass/volume)Ordered By: Gini Couch on 10-02-2024 Urea nitrogen [Mass/Vol] 28 mg/dL High 4-19 [facility] Sodium levelOrdered By: Mercedes Couch on 10-02-2024 Sodium [Moles/Vol] 136 mmol/L 133-145 [facility] White blood cell (WBC) count Ordered By: Gini Couch on 10-02-2024 WBC (Bld) [#/Vol] 5.7 10*3/uL Normal 4.4-11.0 [facility] Comment on above: Performed By: #### L 500.2500, L100.0100 ####[facility] [address] [place], [address] Anion gap in Serum or Plasma Ordered By: Daksha Turner on 09-25-2024 Anion gap [Moles/Vol] 11 mmol/L 07-20 [facility] BUN/creatinine ratioOrdered By: Daksha Turner on 09-25-2024 Urea nitrogen/Creatinine [Mass ratio] 11.7 mg/mg - [facility] Basic Metabolic Profile (BMP )on 09-25-2024 BUN/CRE 11.7 RATIO Normal 12-25 [facility] Comment on above: Order Comment: Order Date: 09/25/24 Order Info: [id number] - BMP Order Info: [id number] - MG Order Info: [id number] - FE Order Info: [id number] - MARTIN Performed By: #### L 500.2500, L509.1000, L503.6150, L100.0500, L501.5200, L101.9900, L503.6550 #### [facility] [address] [place], [address] Calcium [Mass/Vol] 9.7 mg/dL Normal 7.6-11.0 [facility] Comment on above: Order Comment: Order Date: 09/25/24 Order Info: [id number] - BMP Order Info: [id number] - MG Order Info: [id number] - FE Order Info: 2275-4 - MARTIN Performed By: #### L 500.2500, L509.1000, L503.6150, L100.0500, L501.5200, L101.9900, L503.6550 #### [facility] [address] [place], [address] Chloride [Moles/Vol] 102 mmol/L Normal 98-108 [facility] Comment on above: Order Comment: Order Date: 09/25/24 Order Info: [id number] - BMP Order Info: [id number] - MG Order Info: [id number] - FE Order Info: 2276-4 - MARTIN Performed By: #### L 500.2500, L509.1000, L503.6150, L100.0500, L501.5200, L101.9900, L503.6550 #### [facility] [address] [place], [place], [id number] ([phone] CO2 [Moles/Vol] 23.7 mmol/L Normal 21.0-32.0 [facility] Comment on above: Order Comment: Order Date: 09/25/24 Order Info: [id number] - BMP Order Info: [id number] - MG Order Info: 2494 - FE Order Info: [id number] - MARTIN Performed By: #### L 500.2500, L509.1000, L503.6150, L100.0500, L501.5200, L101.9900, L503.6550 #### [facility] [address] [place], [place], [phone] Creatinine [Mass/Vol] 2.11 mg/dL High 0.70-1.20 [facility] Comment on above: Order Comment: Order Date: 09/25/24 Order Info: [id number] - BMP Order Info: [id number] - MG Order Info: [id number] - FE Order Info: 227-4 - MARTIN Performed By: #### L 500.2500, L509.1000, L503.6150, L100.0500, L501.5200, L101.9900, L503.6550 #### [facility] [address] [place], [place], [id number] ([phone] GAP 11 Normal 5-15 [facility] Comment on above: Order Comment: Order Date: 09/25/24 Order Info: 666-03 - BMP Order Info: [id number] - MG Order Info: 2498-4 - FE Order Info: 2276-4 - MARTIN Performed By: #### L 500.2500, L509.1000, L503.6150, L100.0500, L501.5200, L101.9900, L503.6550 #### [facility] [address] [place], [place], [address] GFR/1.73 sq M.predicted among non-blacks MDRD (S/P/Bld) [Vol rate/Area] 35 mL/min/{1.73_m2} Low >60 [facility] Comment on above: Order Comment: Order Date: 09/25/24 Order Info: 666-03 - BMP Order Info: [id number] - MG Order Info: 249-4 - FE Order Info: 227-4 - MARTIN Result Comment: mL/m in/1.73m2 CKD-EPI Creatinine Equation (2020) Performed By: #### L 500.2500, L509.1000, L503.6150, L100.0500, L501.5200, L101.9900, L503.6550 #### [facility] [address] [place], [place], [phone] Glucose [Mass/Vol] 99 mg/dL Normal 70-99 [facility] Comment on above: Order Comment: Order Date: 09/25/24 Order Info: 666-03 - BMP Order Info: [id number] - MG Order Info: [id number] - FE Order Info: 227-4 - MARTIN Performed By: #### L 500.2500, L509.1000, L503.6150, L100.0500, L501.5200, L101.9900, L503.6550 #### [facility] [address] [place], [address] Potassium [Moles/Vol] 4.5 mmol/L Normal 3.3-5.1 [facility] Comment on above: Order Comment: Order Date: 09/25/24 Order Info: 666-03 - BMP Order Info: [id number] - MG Order Info: [id number] - FE Order Info: 2276-4 - MARTIN Performed By: #### L 500.2500, L509.1000, L503.6150, L100.0500, L501.5200, L101.9900, L503.6550 #### [facility] [address] [place], [place], [address] Sodium [Moles/Vol] 136 mmol/L Normal 133-145 [facility] Comment on above: Order Comment: Order Date: 09/25/24 Order Info: [id number] - BMP Order Info: [id number] - MG Order Info: 24984 - FE Order Info: 2275-4 - MARTIN Performed By: #### L 500.2500, L509.1000, L503.6150, L100.0500, L501.5200, L101.9900, L503.6550 #### [facility] [address] [place], [place], [address] Urea nitrogen [Mass/Vol] 25 mg/dL High 4-19 [facility] Comment on above: Order Comment: Order Date: 09/25/24 Order Info: 0667-1 - BMP Order Info: 14454-1 - MG Order Info: 2497-06 - FE Order Info: 2275-06 - MARTIN Performed By: #### L 500.2500, L509.1000, L503.6150, L100.0500, L501.5200, L101.9900, L503.6550 #### [facility] [address] [place], [place], [address] CBC-Complete Blood Cnt No Di ffon 09-25-2024 Erythrocyte distribution width (RBC) [Ratio] 17.0 % High 11.6-14.6 [facility] Comment on above: Order Comment: Order Date: 09/25/24 Order Info: [id number] - CBC Order Info: 72042-5 - SED Performed By: #### L 500.2500, L509.1000, L503.6150, L100.0500, L501.5200, L101.9900, L503.6550 #### [facility] [address] [place], [place], [address] Hematocrit (Bld) [Volume fraction] 41.6 % Normal 40-54 [facility] Comment on above: Order Comment: Order Date: 09/25/24 Order Info: [id number] - CBC Order Info: 46851-1 - SED Performed By: #### L 500.2500, L509.1000, L503.6150, L100.0500, L501.5200, L101.9900, L503.6550 #### [facility] [address] [place], [address] Hemoglobin (Bld) [Mass/Vol] 14.2 g/dL Normal 13.0-16.5 [facility] Comment on above: Order Comment: Order Date: 09/25/24 Order Info: [id number] - CBC Order Info: 40155-1 - SED Performed By: #### L 500.2500, L509.1000, L503.6150, L100.0500, L501.5200, L101.9900, L503.6550 #### [facility] [address] [place], [address] MCH (RBC) [Entitic mass] 32.6 pg High 27.0-32.0 [facility] Comment on above: Order Comment: Order Date: 09/25/24 Order Info: [id number] - CBC Order Info: 46332-7 - SED Performed By: #### L 500.2500, L509.1000, L503.6150, L100.0500, L501.5200, L101.9900, L503.6550 #### [facility] [address] [place], [address] MCHC (RBC) [Mass/Vol] 34.1 g/dL Normal 32-36 [facility] Comment on above: Order Comment: Order Date: 09/25/24 Order Info: [id number] - CBC Order Info: 19351-1 - SED Performed By: #### L 500.2500, L509.1000, L503.6150, L100.0500, L501.5200, L101.9900, L503.6550 #### [facility] [address] [place], [address] MCV (RBC) [Entitic vol] 95.6 fL High 80-94 [facility] Comment on above: Order Comment: Order Date: 09/25/24 Order Info: [id number] - CBC Order Info: 12406-3 - SED Performed By: #### L 500.2500, L509.1000, L503.6150, L100.0500, L501.5200, L101.9900, L503.6550 #### [facility] [address] [place], [address] Platelet mean volume (Bld) [Entitic vol] 11.0 fL Normal 6.2-12.0 [facility] Comment on above: Order Comment: Order Date: 09/25/24 Order Info: 46552-1 - CBC Order Info: 84319-3 - SED Performed By: #### L 500.2500, L509.1000, L503.6150, L100.0500, L501.5200, L101.9900, L503.6550 #### [facility] [address] [place], [address] Platelets (Bld) [#/Vol] 189 10*3/uL Normal 150-450 [facility] Comment on above: Order Comment: Order Date: 09/25/24 Order Info: [id number] - CBC Order Info: 17963-6 - SED Performed By: #### L 500.2500, L509.1000, L503.6150, L100.0500, L501.5200, L101.9900, L503.6550 #### [facility] [address] [place], [address] RBC (Bld) [#/Vol] 4.35 10*6/uL Low 4.6-6.2 [facility] Comment on above: Order Comment: Order Date: 09/25/24 Order Info: [id number] - CBC Order Info: 39021-6 - SED Performed By: #### L 500.2500, L509.1000, L503.6150, L100.0500, L501.5200, L101.9900, L503.6550 #### [facility] [address] [facility] [place], [address] RDW SD 59.6 fl High 35.1-43.9 [facility] Comment on above: Order Comment: Order Date: 09/25/24 Order Info: [id number] - CBC Order Info: - SED Performed By: #### L 500.2500, L509.1000, L503.6150, L100.0500, L501.5200, L101.9900, L503.6550 #### [facility] [address] [facility] [place], [address] WBC (Bld) [#/Vol] 6.1 10*3/uL Normal 4.4-11.0 [facility] Comment on above: Order Comment: Order Date: 09/25/24 Order Info: [id number] - CBC Order Info: - SED Performed By: #### L 500.2500, L509.1000, L503.6150, L100.0500, L501.5200, L101.9900, L503.6550 #### [facility] [address] [facility] [place], [address] Carbon dioxide, total [Moles /volume] in Central venous bloodOrdered By: Daksha Turner on 09-25-2024 CO2 [Moles/Vol] 23.7 mmol/L 21.0-32.0 [facility] Cardiovascular stress test r eportOrdered By: Moises Gaona on 09-25-2024 Study report [facility] [address] [place] [address] MR#: [id number] Acct: [id number] Name: RENATAYEFRI RESHMA Rep #: [id number] : 1965 59 From: Moises Gaona MD Primary Care: Dr. Daksha Turner MD Status: REG CLI Referring Dr: Gini Couch NP ART GALLERY DIRECTOR-C Sex: M AA Stress Test Report Pharmacologic [...] 175 Date _ Moises Gaona MD CC: ART GALLERY DIRECTOR-C Gini Couch; Dr. 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: [place] Signed [facility] Work Phone: Chloride assayOrdered By: Sejal Turner on 09-25-2024 Chloride [Moles/Vol] 102 mmol/L 98-108 [facility] Echo Completeon 09-25-2024 Echo Complete [facility] [address] [place] [address] Echo Complete 09/24/242019 MR#: [id number] Acct: [id number] Name: YEFRI YANEZ Rep #: [id number] : 1965 59 From: Moises Gaona MD Attending Dr: Gini Couch NP-C Status: [facility] Ordering Dr: Gini Couch NP ART GALLERY DIRECTOR-C Date: 09/25/24 Location: [facility] Sex: M AA Admitted: Reason For Study [...] MD Date Dictated: 09/24/242019 Date Transcribed: 09/25/241728 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: Signed Normal [facility] Echocardiogram study reportO rdered By: Moises Gaona on 09-25-2024 Study report [facility] [address] [place] [address] Echo Complete 09/24/242019 MR#: [id number] Acct: [id number] Name: YEFRI YANEZ Rep #:[id number] : 1965 59 From: Moises Scott Attending Dr: JARVIS Valenzuela tatus: REG CLI Ordering Dr: Gini Couch NP Syd e: 09/25/24 Location: [facility] Sex: M AA Admitted: Reason For Study [...] 09/25/241728 Date _ Moises Gaona MD CC: ART GALLERY DIRECTOR-C Gini Couch; Dr. Daksha Turner MD ~ Date Dictated: 09/24/242019 Date Transcribed: 09/25/241728 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: Signed [facility] Work Phone: Erythrocyte Sed Rateon 09-25 SED RATE 30 mm/hr High 0-20 [facility] Comment on above: Order Comment: Order Date: 09/25/24 Order Info: [id number] - CBC Order Info: [id number] - SED Performed By: #### L 500.2500, L509.1000, L503.6150, L100.0500, L501.5200, L101.9900, L503.6550 #### [facility] [address] [place], [place], [address] Erythrocyte distribution wid th ratioOrdered By: Daksha Turner on 09-25-2024 Erythrocyte distribution width (RBC) [Ratio] 17.0 % High 11.6-14.6 [facility] Erythrocyte distribution wid th standard deviationOrdered By: Daksha Turner on 09-25-2024 Erythrocyte distribution width (RBC) [Ratio] 59.6 fl High 35.1-43.9 [facility] Erythrocyte sedimentation ra teOrdered By: Daksha Turner on 09-25-2024 ESR (Bld) [Velocity] 30 mm/h High 0-20 [facility] Ferritinon 09-25-2024 Ferritin [Mass/Vol] 590 ng/mL High 37-417 [facility] Comment on above: Order Comment: Order Date: 09/25/24Order Info: [id number] - BMPOrder Info: [id number] - MGOrder Info: 2498-4 - FEOrder Info: 2276-4 - MARTIN Performed By: #### L 500.2500, L509.1000, L503.6150, L100.0500, L501.5200, L101.9900, L503.6550 ####[facility] [address] [place], [place], [address] Glomerular filtration rate ( GFR) estimation/1.73 sq m using serum, plasma, or whole bOrdered By: Daksha Turner on 09-25-2024 GFR/1.73 sq M.predicted among non-blacks MDRD (S/P/Bld) [Vol rate/Area] 35 mL/min/{1.73_m2} Low >60 [facility] Comment on above: mL/min/1.73m2 CKD-EP I Creatinine Equation (2020) Hematocrit Auto (Bld) [Volum e fraction]Ordered By: Daksha Turner on 09-25-2024 Hematocrit (Bld) [Volume fraction] 41.6 % 40-54 [facility] Hemoglobin measurementOrdere d By: Daksha Turnre on 09-25-2024 Hemoglobin (Bld) [Mass/Vol] 14.2 g/dL 13.0-16.5 [facility] Ironon 09-25-2024 Iron [Mass/Vol] 115 ug/dL Normal 65-175 [facility] Comment on above: Order Comment: Order Date: 09/25/24 Order Info: [id number] - BMP Order Info: [id number] - MG Order Info: [id number] - FE Order Info: [id number] - MARTIN Performed By: #### L 500.2500, L509.1000, L503.6150, L100.0500, L501.5200, L101.9900, L503.6550 #### [facility] [address] [place], [address] Iron measurement (mass/mass) Ordered By: Daksha Turner on 09-25-2024 Iron (Unsp spec) [Mass/Mass] 115 ug/dL 65-175 [facility] MCV (mean corpuscular volume ) determinationOrdered By: Daksha Turner on 09-25-2024 MCV (RBC) [Entitic vol] 95.6 fL High 80-94 [facility] Magnesiumon 09-25-2024 Magnesium [Mass/Vol] 1.9 mg/dL Normal 1.5-2.2 [facility] Comment on above: Order Comment: Order Date: 09/25/24 Order Info: [id number] - BMP Order Info: [id number] - MG Order Info: [id number] - FE Order Info: [id number] - MARTIN Performed By: #### L 500.2500, L509.1000, L503.6150, L100.0500, L501.5200, L101.9900, L503.6550 #### [facility] [address] [facility] [place], [place], [address] Magnesium measurement (mass/ volume)Ordered By: Daksha Turner on 09-25-2024 Magnesium (Unsp spec) [Mass/Vol] 1.9 mg/dL 1.5-2.2 [facility] Mean corpuscular hemoglobin (MCH) determinationOrdered By: Daksha Turner on 09-25-2024 MCH (RBC) [Entitic mass] 32.6 pg High 27.0-32.0 [facility] Mean corpuscular hemoglobin concentration (MCHC) determinationOrdered By: Daksha Turner on 09-25-2024 MCHC (RBC) [Mass/Vol] 34.1 g/dL 32-36 [facility] Mean platelet volume determi nationOrdered By: Daksha Turner on 09-25-2024 Platelet mean volume (Bld) [Entitic vol] 11.0 fL 6.2-12.0 [facility] PTHINon 09-25-2024 PTH 242 pg/mL High 11-61 [facility] Comment on above: Order Comment: Order Date: 09/25/24 Order Info: [id number] - PTHIN Performed By: #### L 500.2500, L509.1000, L503.6150, L100.0500, L501.5200, L101.9900, L503.6550 #### [facility] [address] [place], [place], [address] Platelet countOrdered By: Sejal Turner on 09-25-2024 Platelets (Bld) [#/Vol] 189 10*3/uL 150-450 [facility] Potassium measurement (mass/ volume)Ordered By: Daksha Turner on 09-25-2024 Potassium (Unsp spec) [Mass/Vol] 4.5 mmol/L 3.3-5.1 [facility] RBC Auto (Bld) [#/Vol]Ordere d By: Daksha Turner on 09-25-2024 RBC (Bld) [#/Vol] 4.35 10*6/uL Low 4.6-6.2 [facility] Serum creatinine measurement (mass/volume)Ordered By: Daksha Turner on 09-25-2024 Creatinine [Mass/Vol] 2.11 mg/dL High 0.70-1.20 [facility] Serum glucose measurement (m ass/volume)Ordered By: Daksha Turner on 09-25-2024 Glucose [Mass/Vol] 99 mg/dL 70-99 [facility] Serum or plasma calcium cory urement (mass/volume)Ordered By: Daksha Turner on 09-25-2024 Calcium [Mass/Vol] 9.7 mg/dL 7.6-11.0 [facility] Serum or plasma ferritin meliton surement (mass/volume)Ordered By: Daksha Turner on 09-25-2024 Ferritin [Mass/Vol] 590 ng/mL High 37-417 [facility] Serum or plasma urea nitroge n measurement (mass/volume)Ordered By: Daksha Turner on 09-25-2024 Urea nitrogen [Mass/Vol] 25 mg/dL High 4-19 [facility] Sodium levelOrdered By: Shawna melina Johnny on 09-25-2024 Sodium [Moles/Vol] 136 mmol/L 133-145 [facility] Stress Reporton 09-25-2024 Stress Report [facility] [address] [place] [address] MR#: [id number] Acct: [id number] Name: YEFRI YANEZ Rep #: [id number] : 1965 59 From: Moises Gaona MD Primary Care: Dr. 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 [place], [place], [address] Vitamin B12 ser/plasOrdered By: Daksha Turner on 09-25-2024 Cobalamin (Vitamin B12) [Mass/Vol] 490 pg/mL 180-914 [facility] Vitamin D,25 Hydroxyon 09-25 Vitamin D 25-OH 16.2 ng/mL Low 30-100 [facility] Comment on above: Order Comment: Order Date: 09/25/24 Order Info: 0667-1 - BMP Order Info: [id number] - MG Order Info: [id number] - Order Info: [id number] - MARTIN Result Comment: Constanza min D Status Deficiency: <20 ng/mL (50nmol/L) Insufficiency: 20-30 ng/mL (50-75 nmol/L) Sufficiency: 30-100 ng/mL (75-250 nmol/L) Toxicity: >100 ng/mL (>250 nmol/L) Performed By: #### L 503.0106, L506.1001 #### [facility] [address] [place], [address] White blood cell (WBC) count Ordered By: Daksha Turner on 09-25-2024 WBC (Bld) [#/Vol] 6.1 10*3/uL 4.4-11.0 [facility] Absolute lymphocyte countOrd ered By: Gini Couch on 08-14-2024 Lymphocytes Auto (Unsp spec) [#/Vol] 1.02 10*3/uL 0.83-4.51 [facility] Absolute neutrophil countOrd ered By: Gini Couch on 08-14-2024 Neutrophils (Bld) [#/Vol] 3.6 10*3/uL 2.0-7.7 [facility] Anion gap in Serum or Plasma Ordered By: Gini Couch on 08-14-2024 Anion gap [Moles/Vol] 10 mmol/L 5-15 [facility] Automated lymphocyte count a s percentage of total leukocytesOrdered By: Gini Couch on 08-14-2024 Lymphocytes/100 WBC Auto (Unsp spec) 18.9 % Low 19-41 [facility] BUN/creatinine ratioOrdered By: Gini Couch on 08-14-2024 Urea nitrogen/Creatinine [Mass ratio] 9.5 mg/mg Low 10-20 [facility] Basic Metabolic Profile (BMP )on 08-14-2024 BUN/CRE 9.5 RATIO Low 10-20 [facility] Comment on above: Performed By: #### L 500.2500, L501.9520, L501.5200, L100.0100 ####[facility] [address] [place], [address] Calcium [Mass/Vol] 9.5 mg/dL Normal 7.6-11.0 [facility] Comment on above: Performed By: #### L 500.2500, L501.9520, L501.5200, L100.0100 ####[facility] [address] [place], [address] Chloride [Moles/Vol] 102 mmol/L Normal 98-108 [facility] Comment on above: Performed By: #### L 500.2500, L501.9520, L501.5200, L100.0100 ####[facility] [address] [place], [address] CO2 [Moles/Vol] 26.2 mmol/L Normal 21.0-32.0 [facility] Comment on above: Performed By: #### L 500.2500, L501.9520, L501.5200, L100.0100 ####[facility] [address] [place], [address] Creatinine [Mass/Vol] 2.22 mg/dL High 0.70-1.20 [facility] Comment on above: Performed By: #### L 500.2500, L501.9520, L501.5200, L100.0100 ####[facility] [address] [place], [address] GAP 10 Normal 5-15 [facility] Comment on above: Performed By: #### L 500.2500, L501.9520, L501.5200, L100.0100 ####[facility] [address] [place], [address] GFR/1.73 sq M.predicted among non-blacks MDRD (S/P/Bld) [Vol rate/Area] 33 mL/min/{1.73_m2} Low >60 [facility] Comment on above: Result Comment: mL/m in/1.73m2 CKD-EPI Creatinine Equation (2020) Performed By: #### L 500.2500, L501.9520, L501.5200, L100.0100 ####[facility] [address] [place], [address] Glucose [Mass/Vol] 101 mg/dL High 70-99 [facility] Comment on above: Performed By: #### L 500.2500, L501.9520, L501.5200, L100.0100 ####[facility] [address] [place], [address] Potassium [Moles/Vol] 4.7 mmol/L Normal 3.3-5.1 [facility] Comment on above: Performed By: #### L 500.2500, L501.9520, L501.5200, L100.0100 ####[facility] [address] [place], [address] Sodium [Moles/Vol] 138 mmol/L Normal 133-145 [facility] Comment on above: Performed By: #### L 500.2500, L501.9520, L501.5200, L100.0100 ####[facility] [address] [place], [address] Urea nitrogen [Mass/Vol] 21 mg/dL High 4-19 [facility] Comment on above: Performed By: #### L 500.2500, L501.9520, L501.5200, L100.0100 ####[facility] [address] [place], [address] Basophil percentageOrdered B y: Gini Couch on 08-14-2024 Basophils/100 WBC (Bld) 0.4 % 0-1 [facility] CBC W/Diff, Automatedon Absolute Lymph 1.02 X10 3/uL Normal 0.83-4.51 [facility] Comment on above: Performed By: #### L 500.2500, L501.9520, L501.5200, L100.0100 ####[facility] [address] [place], [address] Absolute Neut 3.6 X10 3/uL Normal 2.0-7.7 [facility] Comment on above: Performed By: #### L 500.2500, L501.9520, L501.5200, L100.0100 ####[facility] [address] [place], [address] Basophils/100 WBC (Bld) 0.4 % Normal 0-1 [facility] Comment on above: Performed By: #### L 500.2500, L501.9520, L501.5200, L100.0100 ####[facility] [address] [place], [address] Eosinophils/100 WBC (Bld) 2.2 % Normal 0-5 [facility] Comment on above: Performed By: #### L 500.2500, L501.9520, L501.5200, L100.0100 ####[facility] [address] [place], [address] Erythrocyte distribution width (RBC) [Ratio] 16.6 % High 11.6-14.6 [facility] Comment on above: Performed By: #### L 500.2500, L501.9520, L501.5200, L100.0100 ####[facility] [address] [place], [address] Hematocrit (Bld) [Volume fraction] 41.7 % Normal 40-54 [facility] Comment on above: Performed By: #### L 500.2500, L501.9520, L501.5200, L100.0100 ####[facility] [address] [place], [address] Hemoglobin (Bld) [Mass/Vol] 13.9 g/dL Normal 13.0-16.5 [facility] Comment on above: Performed By: #### L 500.2500, L501.9520, L501.5200, L100.0100 ####[facility] [address] [place], [address] IG% 0.200 Normal 0.0-0.9 [facility] Comment on above: Result Comment: IG% - Immature Granulocytes (promyelocytes, myelocytes and metamyelocytes) > 1% indicates that a LEFT SHIFT is Present. Performed By: #### L 500.2500, L501.9520, L501.5200, L100.0100 ####[facility] [address] [place], [address] Lymphocytes/100 WBC (Bld) 18.9 % Low 19-41 [facility] Comment on above: Performed By: #### L 500.2500, L501.9520, L501.5200, L100.0100 ####[facility] [address] [place], [address] MCH (RBC) [Entitic mass] 32.5 pg High 27.0-32.0 [facility] Comment on above: Performed By: #### L 500.2500, L501.9520, L501.5200, L100.0100 ####[facility] [address] [place], [address] MCHC (RBC) [Mass/Vol] 33.3 g/dL Normal 32-36 [facility] Comment on above: Performed By: #### L 500.2500, L501.9520, L501.5200, L100.0100 ####[facility] [address] [place], [address] MCV (RBC) [Entitic vol] 97.4 fL High 80-94 [facility] Comment on above: Performed By: #### L 500.2500, L501.9520, L501.5200, L100.0100 ####[facility] [address] [place], [address] Monocytes/100 WBC (Bld) 11.3 % High 0-10 [facility] Comment on above: Performed By: #### L 500.2500, L501.9520, L501.5200, L100.0100 ####[facility] [address] [place], [address] Neutrophils/100 WBC (Bld) 67.0 % Normal 47-70 [facility] Comment on above: Performed By: #### L 500.2500, L501.9520, L501.5200, L100.0100 ####[facility] [address] [place], [address] Nucleated RBC (Bld) [#/Vol] 0 10*3/uL Normal 0-5 [facility] Comment on above: Performed By: #### L 500.2500, L501.9520, L501.5200, L100.0100 ####[facility] [address] [place], [address] Platelet mean volume (Bld) [Entitic vol] 10.4 fL Normal 6.2-12.0 [facility] Comment on above: Performed By: #### L 500.2500, L501.9520, L501.5200, L100.0100 ####[facility] [address] [place], [address] Platelets (Bld) [#/Vol] 209 10*3/uL Normal 150-450 [facility] Comment on above: Performed By: #### L 500.2500, L501.9520, L501.5200, L100.0100 ####[facility] [address] [place], [address] RBC (Bld) [#/Vol] 4.28 10*6/uL Low 4.6-6.2 [facility] Comment on above: Performed By: #### L 500.2500, L501.9520, L501.5200, L100.0100 ####[facility] [address] [place], [address] RDW SD 59.1 fl High 35.1-43.9 [facility] Comment on above: Performed By: #### L 500.2500, L501.9520, L501.5200, L100.0100 ####[facility] [address] [place], [address] WBC (Bld) [#/Vol] 5.4 10*3/uL Normal 4.4-11.0 [facility] Comment on above: Performed By: #### L 500.2500, L501.9520, L501.5200, L100.0100 ####[facility] [address] [place], [place], [address] Carbon dioxide, total [Moles /volume] in Central venous bloodOrdered By: iGni Couch on 08-14-2024 CO2 [Moles/Vol] 26.2 mmol/L 21.0-32.0 [facility] Cardiology Visit Reporton Cardiology Visit Report [facility] [address] [place], [place] [address] OFFICE VISIT Date of Service: 08/14/24 MR#: [id number] Acct: [id number] Name: YEFRI YANEZ Rep #: [id number] : 1965 Provider: JARVIS campos Age/Sex: 59/M [place] [facility] Status: Signed HPI HPI History of Present [...] the care of the oncologist here at [facility]. He had presented to the hospital [...] he had a DC cardioversion at the [facility] in September 2021. He had previously been seeing a pin inserter regulator in the [facility]. During this admission to the hospital in May 2022 his medications were optimized he was diuresed his creatinine actually improved and he was subsequently discharged to find a pin inserter regulator. He also had a history of atrial [...] 97 Intake Visit Reasons: 6 M FU Hot Roll Laminator Required: No Is patient in pain?: No [...] 06/0708/14/24 Rx (more content not included)... Normal [facility] Chloride assayOrdered By: Eduardo Couch on 08-14-2024 Chloride [Moles/Vol] 102 mmol/L 98-108 [facility] Eosinophil percentageOrdered By: Gini Couch on 08-14-2024 Eosinophils/100 WBC (Bld) 2.2 % 0-5 [facility] Erythrocyte distribution wid th ratioOrdered By: Gini Couch on 08-14-2024 Erythrocyte distribution width (RBC) [Ratio] 16.6 % High 11.6-14.6 [facility] Erythrocyte distribution wid th standard deviationOrdered By: Gini Couch on 08-14-2024 Erythrocyte distribution width (RBC) [Ratio] 59.1 fl High 35.1-43.9 [facility] Glomerular filtration rate ( GFR) estimation/1.73 sq m using serum, plasma, or whole bOrdered By: Gini Couch on 08-14-2024 GFR/1.73 sq M.predicted among non-blacks MDRD (S/P/Bld) [Vol rate/Area] 33 mL/min/{1.73_m2} Low >60 [facility] Comment on above: mL/min/1.73m2 CKD-EP I Creatinine Equation (2020) Hematocrit Auto (Bld) [Volum e fraction]Ordered By: Gini Couch on 08-14-2024 Hematocrit (Bld) [Volume fraction] 41.7 % 40-54 [facility] Hemoglobin measurementOrdere d By: Gini Couch on 08-14-2024 Hemoglobin (Bld) [Mass/Vol] 13.9 g/dL 13.0-16.5 [facility] Immature granulocytes/100 WB C Auto (Bld)Ordered By: Gini Couch on 08-14-2024 Immature granulocytes/100 WBC (Bld) 0.200 % 0.0-0.9 [facility] Comment on above: IG% - Immature Granu locytes (promyelocytes, myelocytes and metamyelocytes) > 1% indicates that a LEFT SHIFT is Present. MCV (mean corpuscular volume ) determinationOrdered By: Gini Couch on 08-14-2024 MCV (RBC) [Entitic vol] 97.4 fL High 80-94 [facility] Magnesiumon 08-14-2024 Magnesium [Mass/Vol] 2.3 mg/dL High 1.5-2.2 [facility] Comment on above: Performed By: #### L 503.0106, L506.1001 #### [facility] [address] [place] [address], [address] Magnesium measurement (mass/ volume)Ordered By: Gini Couch on 08-14-2024 Magnesium (Unsp spec) [Mass/Vol] 2.3 mg/dL High 1.5-2.2 [facility] Mean corpuscular hemoglobin (MCH) determinationOrdered By: Gini Couch on 08-14-2024 MCH (RBC) [Entitic mass] 32.5 pg High 27.0-32.0 [facility] Mean corpuscular hemoglobin concentration (MCHC) determinationOrdered By: Gini Couch on 08-14-2024 MCHC (RBC) [Mass/Vol] 33.3 g/dL 32-36 [facility] Mean platelet volume determi nationOrdered By: Gini Couch on 08-14-2024 Platelet mean volume (Bld) [Entitic vol] 10.4 fL 6.2-12.0 [facility] Monocyte percentageOrdered B y: Gini Couch on 08-14-2024 Monocytes/100 WBC (Bld) 11.3 % High 0-10 [facility] Neutrophil percentageOrdered By: Gini Couch on 08-14-2024 Neutrophils/100 WBC (Bld) 67.0 % 47-70 [facility] Nucleated red blood cell per centageOrdered By: Gini Couch on 08-14-2024 Nucleated RBC/100 WBC (Bld) [Ratio] 0 % 0-5 [facility] Platelet countOrdered By: Eduardo Couch on 08-14-2024 Platelets (Bld) [#/Vol] 209 10*3/uL 150-450 [facility] Potassium measurement (mass/ volume)Ordered By: Gini Couch on 08-14-2024 Potassium (Unsp spec) [Mass/Vol] 4.7 mmol/L 3.3-5.1 [facility] RBC Auto (Bld) [#/Vol]Ordere d By: Gini Couch on 08-14-2024 RBC (Bld) [#/Vol] 4.28 10*6/uL Low 4.6-6.2 [facility] Serum creatinine measurement (mass/volume)Ordered By: Gini Couch on 08-14-2024 Creatinine [Mass/Vol] 2.22 mg/dL High 0.70-1.20 [facility] Serum glucose measurement (m ass/volume)Ordered By: Gini Couch on 08-14-2024 Glucose [Mass/Vol] 101 mg/dL High 70-99 [facility] Serum or plasma calcium cory urement (mass/volume)Ordered By: Gini Couch on 08-14-2024 Calcium [Mass/Vol] 9.5 mg/dL 7.6-11.0 [facility] Serum or plasma urea nitroge n measurement (mass/volume)Ordered By: Gini Couch on 08-14-2024 Urea nitrogen [Mass/Vol] 21 mg/dL High 4-19 [facility] Sodium levelOrdered By: Mercedes Couch on 08-14-2024 Sodium [Moles/Vol] 138 mmol/L 133-145 [facility] TSH DL <= 0.005 mIU/L QnOrde red By: Gini Couch on 08-14-2024 TSH Qn 1.940 uIU/mL 0.300-4.20 0 [facility] Thyroid Stim Hormone (TSH)on 08-14-2024 TSH 1.940 uIU/mL Normal 0.300-4.20 0 [facility] Comment on above: Performed By: #### L 503.0106, L506.1001 #### [facility] [address] [place], [address] White blood cell (WBC) count Ordered By: Gini Couch on 08-14-2024 WBC (Bld) [#/Vol] 5.4 10*3/uL 4.4-11.0 [facility] Absolute lymphocyte countOrd ered By: Dangelo Botello on 06-20-2024 Lymphocytes Auto (Unsp spec) [#/Vol] 1.11 10*3/uL 0.83-4.51 [facility] Absolute neutrophil countOrd ered By: Dangelo Botello on 06-20-2024 Neutrophils (Bld) [#/Vol] 4.3 10*3/uL 2.0-7.7 [facility] Anion gap in Serum or Plasma Ordered By: Dangelo Botello on 06-20-2024 Anion gap [Moles/Vol] 10 mmol/L 5-15 [facility] Automated lymphocyte count a s percentage of total leukocytesOrdered By: Dangelo Botello on 06-20-2024 Lymphocytes/100 WBC Auto (Unsp spec) 18.8 % Low 19-41 [facility] BUN/creatinine ratioOrdered By: Dangelo Botello on 06-20-2024 Urea nitrogen/Creatinine [Mass ratio] 8.0 mg/mg Low 10-20 [facility] Basophil percentageOrdered B y: Dangelo Botello on 06-20-2024 Basophils/100 WBC (Bld) 0.3 % 0-1 [facility] Bilirubin, totalOrdered By: Dangelo Botello on 06-20-2024 Bilirubin [Mass/Vol] 0.39 mg/dL 0.00-1.30 [facility] CBC W/Diff, Automatedon 06-06 Absolute Lymph 1.11 X10 3/uL Normal 0.83-4.51 [facility] Comment on above: Performed By: #### L 504.2610, L500.4050, L100.0100 ####[facility] [address], [address] Absolute Neut 4.3 X10 3/uL Normal 2.0-7.7 [facility] Comment on above: Performed By: #### L 504.2610, L500.4050, L100.0100 ####[facility] [address] [place], [address] Basophils/100 WBC (Bld) 0.3 % Normal 0-1 [facility] Comment on above: Performed By: #### L 504.2610, L500.4050, L100.0100 ####[facility] [address], [address] Eosinophils/100 WBC (Bld) 0.5 % Normal 0-5 [facility] Comment on above: Performed By: #### L 504.2610, L500.4050, L100.0100 ####[facility] [address], [address] Erythrocyte distribution width (RBC) [Ratio] 17.2 % High 11.6-14.6 [facility] Comment on above: Performed By: #### L 504.2610, L500.4050, L100.0100 ####[facility] [address] [place], [address] Hematocrit (Bld) [Volume fraction] 41.0 % Normal 40-54 [facility] Comment on above: Performed By: #### L 504.2610, L500.4050, L100.0100 ####[facility] [address] [place], [address] Hemoglobin (Bld) [Mass/Vol] 13.8 g/dL Normal 13.0-16.5 [facility] Comment on above: Performed By: #### L 504.2610, L500.4050, L100.0100 ####[facility] [address] [place], [address] IG% 1.400 High 0.0-0.9 [facility] Comment on above: Result Comment: IG% - Immature Granulocytes (promyelocytes, myelocytes and metamyelocytes) > 1% indicates that a LEFT SHIFT is Present. Performed By: #### L 504.2610, L500.4050, L100.0100 ####[facility] [address] [place], [address] Lymphocytes/100 WBC (Bld) 18.8 % Low 19-41 [facility] Comment on above: Performed By: #### L 504.2610, L500.4050, L100.0100 ####[facility] [address] [place], [address] MCH (RBC) [Entitic mass] 33.3 pg High 27.0-32.0 [facility] Comment on above: Performed By: #### L 504.2610, L500.4050, L100.0100 ####[facility] [address] [place], [address] MCHC (RBC) [Mass/Vol] 33.7 g/dL Normal 32-36 [facility] Comment on above: Performed By: #### L 504.2610, L500.4050, L100.0100 ####[facility] [address] [place], [address] MCV (RBC) [Entitic vol] 99.0 fL High 80-94 [facility] Comment on above: Performed By: #### L 504.2610, L500.4050, L100.0100 ####[facility] [address] [place], [address] Monocytes/100 WBC (Bld) 6.9 % Normal 0-10 [facility] Comment on above: Performed By: #### L 504.2610, L500.4050, L100.0100 ####[facility] [address] [place], [address] Neutrophils/100 WBC (Bld) 72.1 % High 47-70 [facility] Comment on above: Performed By: #### L 504.2610, L500.4050, L100.0100 ####[facility] [address] [place], [address] Nucleated RBC (Bld) [#/Vol] 0 10*3/uL Normal 0-5 [facility] Comment on above: Performed By: #### L 504.2610, L500.4050, L100.0100 ####[facility] [address] [place], [address] Platelet mean volume (Bld) [Entitic vol] 10.8 fL Normal 6.2-12.0 [facility] Comment on above: Performed By: #### L 504.2610, L500.4050, L100.0100 ####[facility] [address] [place], [address] Platelets (Bld) [#/Vol] 233 10*3/uL Normal 150-450 [facility] Comment on above: Performed By: #### L 504.2610, L500.4050, L100.0100 ####[facility] [address] [place], [address] RBC (Bld) [#/Vol] 4.14 10*6/uL Low 4.6-6.2 [facility] Comment on above: Performed By: #### L 504.2610, L500.4050, L100.0100 ####[facility] [address] [place], [address] RDW SD 62.4 fl High 35.1-43.9 [facility] Comment on above: Performed By: #### L 504.2610, L500.4050, L100.0100 ####[facility] [address] [place], [address] WBC (Bld) [#/Vol] 5.9 10*3/uL Normal 4.4-11.0 [facility] Comment on above: Performed By: #### L 504.2610, L500.4050, L100.0100 ####[facility] [address] [place], [address] Carbon dioxide, total [Moles /volume] in Central venous bloodOrdered By: Dangelo Botello on 06-20-2024 CO2 [Moles/Vol] 26.0 mmol/L 21.0-32.0 [facility] Chloride assayOrdered By: Raeann Botello on 06-20-2024 Chloride [Moles/Vol] 100 mmol/L 98-108 [facility] Comprehensive Metabolic Prof ilon 06-20-2024 Albumin [Mass/Vol] 4.0 g/dL Normal 3.4-4.8 [facility] Comment on above: Performed By: #### L 504.2610, L500.4050, L100.0100 ####[facility] [address] [place], [address] Albumin/Globulin [Mass ratio] 1.4 {ratio} Normal 0.9-2.4 [facility] Comment on above: Performed By: #### L 504.2610, L500.4050, L100.0100 ####[facility] [address] [place], [address] ALK PHOS 47 U/L Normal 40-129 [facility] Comment on above: Performed By: #### L 504.2610, L500.4050, L100.0100 ####[facility] [address] [place], [address] ALT [Catalytic activity/Vol] 47 U/L Normal <=46 [facility] Comment on above: Performed By: #### L 504.2610, L500.4050, L100.0100 ####[facility] [address] [place], [address] AST [Catalytic activity/Vol] 37 U/L Normal <=37 [facility] Comment on above: Performed By: #### L 504.2610, L500.4050, L100.0100 ####[facility] [address] [place], [address] Bilirubin [Mass/Vol] 0.39 mg/dL Normal 0.00-1.30 [facility] Comment on above: Performed By: #### L 504.2610, L500.4050, L100.0100 ####[facility] [address] [place], [address] BUN/CRE 8.0 RATIO Low 10-20 [facility] Comment on above: Performed By: #### L 504.2610, L500.4050, L100.0100 ####[facility] [address] [place], [address] Calcium [Mass/Vol] 9.7 mg/dL Normal 7.6-11.0 [facility] Comment on above: Performed By: #### L 504.2610, L500.4050, L100.0100 ####[facility] [address] [place], [address] Chloride [Moles/Vol] 100 mmol/L Normal 98-108 [facility] Comment on above: Performed By: #### L 504.2610, L500.4050, L100.0100 ####[facility] [address] [place], [address] CO2 [Moles/Vol] 26.0 mmol/L Normal 21.0-32.0 [facility] Comment on above: Performed By: #### L 504.2610, L500.4050, L100.0100 ####[facility] [address] [place], [address] Creatinine [Mass/Vol] 1.89 mg/dL High 0.70-1.20 [facility] Comment on above: Performed By: #### L 504.2610, L500.4050, L100.0100 ####[facility] [address] [place], [address] GAP 10 Normal 5-15 [facility] Comment on above: Performed By: #### L 504.2610, L500.4050, L100.0100 ####[facility] [address] [place], [address] GFR/1.73 sq M.predicted among non-blacks MDRD (S/P/Bld) [Vol rate/Area] 40 mL/min/{1.73_m2} Low >60 [facility] Comment on above: Result Comment: mL/m in/1.73m2 CKD-EPI Creatinine Equation (2020) Performed By: #### L 504.2610, L500.4050, L100.0100 ####[facility] [address] [place], [address] Globulin (S) [Mass/Vol] 2.8 g/dL Normal 2.2-4.2 [facility] Comment on above: Performed By: #### L 504.2610, L500.4050, L100.0100 ####[facility] [address] [place], [address] Glucose [Mass/Vol] 97 mg/dL Normal 70-99 [facility] Comment on above: Performed By: #### L 504.2610, L500.4050, L100.0100 ####[facility] [address] [place], [address] Potassium [Moles/Vol] 4.5 mmol/L Normal 3.3-5.1 [facility] Comment on above: Performed By: #### L 504.2610, L500.4050, L100.0100 ####[facility] [address] [place], [address] Sodium [Moles/Vol] 136 mmol/L Normal 133-145 [facility] Comment on above: Performed By: #### L 504.2610, L500.4050, L100.0100 ####[facility] [address] [place], [address] T PROT 6.7 g/dL Normal 5.9-8.4 [facility] Comment on above: Performed By: #### L 504.2610, L500.4050, L100.0100 ####[facility] [address] [place], [address] Urea nitrogen [Mass/Vol] 15 mg/dL Normal 4-19 [facility] Comment on above: Performed By: #### L 504.2610, L500.4050, L100.0100 ####[facility] [address] [place], [address] Eosinophil percentageOrdered By: Dangelo Botello on 06-20-2024 Eosinophils/100 WBC (Bld) 0.5 % 0-5 [facility] Erythrocyte distribution wid th (RBC) [Ratio]Ordered By: Dangelo Botello on 06-20-2024 Erythrocyte distribution width (RBC) [Entitic vol] 62.4 fL High 35.1-43.9 [facility] Erythrocyte distribution wid th ratioOrdered By: Dangelo Botello on 06-20-2024 Erythrocyte distribution width (RBC) [Ratio] 17.2 % High 11.6-14.6 [facility] Erythrocyte distribution wid th standard deviationOrdered By: Dangelo Botello on 06-20-2024 Erythrocyte distribution width (RBC) [Ratio] 62.4 fl High 35.1-43.9 [facility] GFR/1.73 sq M.predicted martin g non-blacks MDRD (S/P/Bld) [Vol rate/Area]Ordered By: Dangelo Botello on 06-20-2024 Estimated GFR (MDRD) Non-Af Amer 40 Low >60 [facility] Comment on above: mL/min/1.73m2 CKD-EP I Creatinine Equation (2020) Glomerular filtration rate ( GFR) estimation/1.73 sq m using serum, plasma, or whole bOrdered By: Dangelo Botello on 06-20-2024 GFR/1.73 sq M.predicted among non-blacks MDRD (S/P/Bld) [Vol rate/Area] 40 mL/min/{1.73_m2} Low >60 [facility] Comment on above: mL/min/1.73m2 CKD-EP I Creatinine Equation (2020) Hematocrit Auto (Bld) [Volum e fraction]Ordered By: Dangelo Botello on 06-20-2024 Hematocrit (Bld) [Volume fraction] 41.0 % 40-54 [facility] Hemoglobin measurementOrdere d By: Dangelo Botello on 06-20-2024 Hemoglobin (Bld) [Mass/Vol] 13.8 g/dL 13.0-16.5 [facility] Immature granulocytes/100 WB C Auto (Bld)Ordered By: Dangelo Botello on 06-20-2024 Immature granulocytes/100 WBC (Bld) 1.400 % High 0.0-0.9 [facility] Comment on above: IG% - Immature Granu locytes (promyelocytes, myelocytes and metamyelocytes) > 1% indicates that a LEFT SHIFT is Present. LDHon 06-20-2024 LDH 249 U/L High 87-241 [facility] Comment on above: Order Comment: 1 Performed By: #### L 504.2610, L500.4050, L100.0100 ####[facility] [address] [place], [address] Laboratory - Chemistry and C hemistry - challengeOrdered By: Dangelo Botello on 06-20-2024 AST [Catalytic activity/Vol] 37 U/L <38 [facility] Lactate dehydrogenase (LDH) measurementOrdered By: Dangelo Botello on 06-20-2024 LDH [Catalytic activity/Vol] 249 U/L High 87-241 [facility] Lymphocytes Auto (Unsp spec) [#/Vol]Ordered By: Dangelo Botello on 06-20-2024 Lymphocytes (Bld) [#/Vol] 1.11 10*3/uL 0.83-4.51 [facility] Lymphocytes/100 WBC Auto (Un sp spec)Ordered By: Dangelo Botello on 06-20-2024 Lymphocytes/100 WBC (Bld) 18.8 % Low 19-41 [facility] MCV (mean corpuscular volume ) determinationOrdered By: Dangelo Botello on 06-20-2024 MCV (RBC) [Entitic vol] 99.0 fL High 80-94 [facility] Mean corpuscular hemoglobin (MCH) determinationOrdered By: Dangelo Botello on 06-20-2024 MCH (RBC) [Entitic mass] 33.3 pg High 27.0-32.0 [facility] Mean corpuscular hemoglobin concentration (MCHC) determinationOrdered By: Dangelo Botello on 06-20-2024 MCHC (RBC) [Mass/Vol] 33.7 g/dL 32-36 [facility] Mean platelet volume determi nationOrdered By: Dangelo Botello on 06-20-2024 Platelet mean volume (Bld) [Entitic vol] 10.8 fL 6.2-12.0 [facility] Monocyte percentageOrdered B y: Dangelo Botello on 06-20-2024 Monocytes/100 WBC (Bld) 6.9 % 0-10 [facility] Neutrophil percentageOrdered By: Dangelo Botello on 06-20-2024 Neutrophils/100 WBC (Bld) 72.1 % High 47-70 [facility] Nucleated red blood cell per centageOrdered By: Dangelo Botello on 06-20-2024 Nucleated RBC/100 WBC (Bld) [Ratio] 0 % 0-5 [facility] Oncology Visit Reporton 06-06 Oncology Visit Report [facility] [place] [address] OFFICE VISIT Date of Service: 06/20/24 1334 MR#: [id number] Acct: [id number] Name: YEFRI YANEZ Rep #: [id number] : 1965 From: Dangelo Botello MD Age/Sex: 59/M [place] [facility] Status: Signed HPI Subjective Date [...] for follow up after CT. Feeling well [facility] Medical History Abnormal chest x-ray [...] Rx spiron (more content not included)... Normal [facility] Platelet countOrdered By: Raeann Botello on 06-20-2024 Platelets (Bld) [#/Vol] 233 10*3/uL 150-450 [facility] Potassium (Unsp spec) [Mass/ Vol]Ordered By: Dangelo Botello on 06-20-2024 Potassium [Moles/Vol] 4.5 mmol/L 3.3-5.1 [facility] Potassium measurement (mass/ volume)Ordered By: Dangelo Botello on 06-20-2024 Potassium (Unsp spec) [Mass/Vol] 4.5 mmol/L 3.3-5.1 [facility] RBC Auto (Bld) [#/Vol]Ordere d By: Dangelo Botello on 06-20-2024 RBC (Bld) [#/Vol] 4.14 10*6/uL Low 4.6-6.2 [facility] Serum creatinine measurement (mass/volume)Ordered By: Dangelo Botello on 06-20-2024 Creatinine [Mass/Vol] 1.89 mg/dL High 0.70-1.20 [facility] Serum globulin measurementOr dered By: Dangelo Botello on 06-20-2024 Globulin (S) [Mass/Vol] 2.8 g/dL 2.2-4.2 [facility] Serum glucose measurement (m ass/volume)Ordered By: Dangelo Botello on 06-20-2024 Glucose [Mass/Vol] 97 mg/dL 70-99 [facility] Serum or plasma alanine stafford otransferase (ALT) measurementOrdered By: Dangelo Botello on 06-20-2024 ALT [Catalytic activity/Vol] 47 U/L <47 [facility] Serum or plasma albumin cory urement (mass/volume)Ordered By: Dangelo Botello on 06-20-2024 Albumin [Mass/Vol] 4.0 g/dL 3.4-4.8 [facility] Serum or plasma albumin/glob ulin mass ratioOrdered By: Dangelo Botello on 06-20-2024 Albumin/Globulin [Mass ratio] 1.4 {ratio} 0.9-2.4 [facility] Serum or plasma alkaline damaso sphatase measurementOrdered By: Dangelo Botello on 06-20-2024 ALP [Catalytic activity/Vol] 47 U/L 40-129 [facility] Serum or plasma calcium cory urement (mass/volume)Ordered By: Dangelo Botello on 06-20-2024 Calcium [Mass/Vol] 9.7 mg/dL 7.6-11.0 [facility] Serum or plasma urea nitroge n measurement (mass/volume)Ordered By: Dangelo Botello on 06-20-2024 Urea nitrogen [Mass/Vol] 15 mg/dL 4-19 [facility] Sodium levelOrdered By: Bruno Botello on 06-20-2024 Sodium [Moles/Vol] 136 mmol/L 133-145 [facility] Total proteinOrdered By: Jose Botello on 06-20-2024 Protein [Mass/Vol] 6.7 g/dL 5.9-8.4 [facility] White blood cell (WBC) count Ordered By: Dangelo Botello on 06-20-2024 WBC (Bld) [#/Vol] 5.9 10*3/uL 4.4-11.0 [facility] CREATININE FINGERSTICKon CREATININE WB < 1.0 Normal 0.70-1.30 [facility] Comment on above: Performed By: #### L 503.0106, L506.1001 #### [facility] [address] [place], [address] EGFR WB > 60.0000 Normal >60 [facility] Comment on above: Performed By: #### L 503.0106, L506.1001 #### [facility] [address] [place], [address] CT Chest, Abd, Pel w/Contras ton 06-13-2024 CT Chest, Abd, Pel w/Contrast [facility] Imaging Services [address] [place] [address] CT Chest, Abd, Pel w/Contrast MR#: [id number] Acct: [id number] Name: YEFRI YANEZ Rep #: [id number] : 1965 M 59 From: Carla Garcia MD PCP: Dr. Daksha Turner MD Status: REG CLI Study: CT Chest, Abd, Pel w/Contrast Date of Exam: Exam# [id number] Ordering Dr: Dangelo Botello MD PROCEDURE: CT [...] cm. *Status post right-sided nephrectomy. Reading Location: [facility] CC: Dr. Daksha Turner MD; Dr. 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: Signed Normal [facility] Creatinine measurement at be dsideOrdered By: Dangelo Botello on 06-13-2024 Bedside Creatinine < 1.0 mg/dL 0.70-1.30 [facility] EGFROrdered By: Dangelo Botello on 06-13-2024 Bedside Estimated GFR (eGFR) > 60.0000 mL/min >60 [facility] GFR/1.73 sq M.predicted among non-blacks MDRD (S/P/Bld) [Vol rate/Area] mL/min/{1.73_m2} >60 [facility] 27-JC-Umseqxh DOrdered By: Tangela Chiu on 03-22-2024 Vitamin D 25-Hydroxy 30.8 ng/mL [facility] Comment on above: Vitamin D 25(OH) Sta tus Range Deficiency <20 ng/mL (50nmol/L) Insufficiency 20 - 30 ng/mL (50 - 75 nmol/L) Sufficiency 30 - 100 ng/mL (75 - 250 nmol/L) Toxicity >100 ng/mL (>250 nmol/L) Blood urea nitrogen (BUN)/cr eatinine ratioOrdered By: Isidra Chiu on 03-22-2024 Urea nitrogen/Creatinine [Mass ratio] 10.8 mg/mg 10-20 [facility] Carbon dioxide measurementOr dered By: Isidra Chiu on 03-22-2024 CO2 [Moles/Vol] 26.0 mmol/L 21.0-32.0 [facility] Chloride measurementOrdered By: Isidra Chiu on 03-22-2024 Chloride [Moles/Vol] 107 mmol/L 98-107 [facility] Estimated glomerular filtrat ion rate (GFR) AmericanOrdered By: Isidra Chiu on 03-22-2024 Estimated GFR (MDRD) Amer 39 mL/min Low >60 [facility] Comment on above: GFR Calc Glomerular filtration rate ( GFR) estimationOrdered By: Isidra Chiu on 03-22-2024 Estimated GFR (MDRD) Non-Af Amer 32 mL/min Low >60 [facility] Comment on above: Non- GFR Calc Glucose measurementOrdered B y: Isidra Chiu on 03-22-2024 Glucose [Mass/Vol] 118 mg/dL High 74-106 [facility] Comment on above: Fasting Glucose resu lt from 100 to 125 mg/dL suggests IMPAIRED HOMEOSTASIS per A.D.A. criteria. Phosphorus measurementOrdere d By: Isidra Chiu on 03-22-2024 Phosphorus Level 2.6 mg/dL 2.5-4.9 [facility] Potassium measurementOrdered By: Isidra Chiu on 03-22-2024 Potassium [Moles/Vol] 4.3 mmol/L 3.5-5.1 [facility] Renal Profileon 03-22-2024 Albumin [Mass/Vol] 3.1 g/dL Low 3.2-5.0 [facility] Comment on above: Performed By: #### L 506.1000, L500.3600 ####[facility] [address] [place], [address] BUN/CRE 10.8 RATIO Normal 10-20 [facility] Comment on above: Performed By: #### L 506.1000, L500.3600 ####[facility] [address] [place], [address] CA,Total 8.3 mg/dL Low 8.5-10.1 [facility] Comment on above: Performed By: #### L 506.1000, L500.3600 ####[facility] [address] [place], [address] Chloride [Moles/Vol] 107 mmol/L Normal 98-107 [facility] Comment on above: Performed By: #### L 506.1000, L500.3600 ####[facility] [address] [place], [address] CO2 [Moles/Vol] 26.0 mmol/L Normal 21.0-32.0 [facility] Comment on above: Performed By: #### L 506.1000, L500.3600 ####[facility] [address] [place], [address] Creatinine [Mass/Vol] 2.22 mg/dL High 0.70-1.30 [facility] Comment on above: Result Comment: The validity of the calculated GFR GFRAA in patients over 70 years has not been determined. Clinical correlation is essential. Performed By: #### L 506.1000, L500.3600 ####[facility] [address] [place], [address] EST GFR - AA 39 mL/min Low >60 [facility] Comment on above: Result Comment: Afri can Gambian GFR Calc Performed By: #### L 506.1000, L500.3600 ####[facility] [address] [place], [address] GFR/1.73 sq M.predicted among non-blacks MDRD (S/P/Bld) [Vol rate/Area] 32 mL/min/{1.73_m2} Low >60 [facility] Comment on above: Result Comment: Non- GFR Calc Performed By: #### L 506.1000, L500.3600 ####[facility] [address] [place], [address] Glucose [Mass/Vol] 118 mg/dL High 74-106 [facility] Comment on above: Result Comment: Fast ing Glucose result from 100 to 125 mg/dL suggests IMPAIRED HOMEOSTASIS per A.D.A. criteria. Performed By: #### L 506.1000, L500.3600 ####[facility] [address] [place], [address] Phosphate [Mass/Vol] 2.6 mg/dL Normal 2.5-4.9 [facility] Comment on above: Performed By: #### L 506.1000, L500.3600 ####[facility] [address] [place], [address] Potassium [Moles/Vol] 4.3 mmol/L Normal 3.5-5.1 [facility] Comment on above: Performed By: #### L 506.1000, L500.3600 ####[facility] [address] [place], [address] Sodium [Moles/Vol] 138 mmol/L Normal 136-145 [facility] Comment on above: Performed By: #### L 506.1000, L500.3600 ####[facility] [address] [place], [address] Urea nitrogen [Mass/Vol] 24 mg/dL High 7-18 [facility] Comment on above: Performed By: #### L 506.1000, L500.3600 ####[facility] [address] [place], [address] Serum or plasma albumin cory urement (mass/volume)Ordered By: Isidra Chiu on 03-22-2024 Albumin [Mass/Vol] 3.1 g/dL Low 3.2-5.0 [facility] Serum or plasma calcium cory urement (mass/volume)Ordered By: Isidra Chiu on 03-22-2024 Calcium [Mass/Vol] 8.3 mg/dL Low 8.5-10.1 [facility] Serum or plasma creatinine m easurement (mass/volume)Ordered By: Isidra Chiu on 03-22-2024 Creatinine [Mass/Vol] 2.22 mg/dL High 0.70-1.30 [facility] Comment on above: The validity of the calculated GFR & GFRAA in patients over 70 years has not been determined. Clinical correlation is essential. Serum or plasma urea nitroge n measurement (mass/volume)Ordered By: Isidra Chiu on 03-22-2024 Urea nitrogen [Mass/Vol] 24 mg/dL High 7-18 [facility] Sodium levelOrdered By: Shawna Chiu on 03-22-2024 Sodium [Moles/Vol] 138 mmol/L 136-145 [facility] Vitamin D,25 Hydroxyon 03-22 Vitamin D 25-OH 30.8 ng/mL Normal [facility] Comment on above: Result Comment: Constanza min D 25(OH) Status Range Deficiency <20 ng/mL (50nmol/L) Insufficiency 20 - 30 ng/mL (50 - 75 nmol/L) Sufficiency 30 - 100 ng/mL (75 - 250 nmol/L) Toxicity >100 ng/mL (>250 nmol/L) Performed By: #### L 506.1000, L500.3600 ####[facility] [address] [facility] [place], [place], [address] Low Dose CT Lung Screeningon 02-08-[address] Lung Screening [facility] Imaging Services [address] [place], [place] [address] Low Dose CT Lung Screening MR#: [id number] Acct: [id number] Name: YEFRI YANEZ Rep #: [id number] : 1965 M 59 From: Rony amador MD PCP: Dr. Daksha Turner MD Status: REG CLI Study: Low Dose CT Lung Screening Date of Exam: 02/07 Exam# [id number] Ordering Dr: Daksha Turner [id number] STUDY: LOW DOSE CT LUNG CANCER SCREENING [...] additional features (more content not included)... Normal [facility] Sex Hormone-binding Globulin on 01-13-2024 SHBG 23.8 nmol/L Normal 19.3-76.4 [facility] Comment on above: Order Comment: Order Date: 09/25/24 Order Info: 0667-1 - BMP Order Info: 09842-9 - MG Order Info: 2498-4 - FE Order Info: 2276-4 - MARTIN Result Comment: Perf ormed at: - [facility] [address] [id number] Tool Grinder: Elías Moreau PhD, Phone: [phone] Performed By: #### L 503.0100, L503.1009 #### [facility] [address] [facility]. [place], [place], [address] [employer] Inc Decub and/or Erecton 01-11-2024 Abd Inc Decub and/or Erect [facility] Imaging Services [address] [place], [place] [address] [employer] Decub and/or Erect MR#: [id number] Acct: [id number] Name: YEFRI YANEZ Rep #: [id number] : 1965 M 59 From: Lul Peters MD PCP: Dr. Daksha Turner MD Status: [facility] Study: Abd Inc Decub and/or Erect Date of Exam: 01/10 Exam# [id number] Ordering Dr: Daksha Turner [id number] STUDY: X-RAY - ABDOMEN/PELVIS REASON FOR EXAM: [...] EST , CC: Dr. 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: Signed Normal [facility] FSH and LHon 01-11-2024 FSH 3.4 mIU/mL Normal [facility] Comment on above: Order Comment: Order Date: 09/25/24 Order Info: 0667-1 - BMP Order Info: 99679-9 - MG Order Info: 2497-06 Order Info: 2275-06 - MARTIN Result Comment: NORMAL REFERENCE RANGES FEMALE FOLLICULAR 2.3 - 12.6 mIU/mL MID-CYCLE PEAK 5.2 - 17.5 mIU/mL LUTEAL 1.7 - 12.9 mIU/mL POST-MENOPAUSAL ON MHT 5.9 - 72.8 mIU/mL NOT ON MHT 12.7 - 132.2 mlU/mL MALE 0.7 - 10.8 mIU/mL Performed By: #### L 503.0106, L506.1001 #### [facility] [address] [place] [address]. [place], [address] LH 4.5 mIU/mL [facility] Comment on above: Order Comment: Order Date: 09/25/24 Order Info: 0667-1 - BMP Order Info: 45116-5 - MG Order Info: 2497-06 - Order Info: 2275-06 - MARTIN Result Comment: NORMAL REFERENCE RANGES FEMALE FOLLICULAR 1.9 - 26.2 mIU/mL MID-CYCLE PEAK 22.8 - 76.1 mIU/mL LUTEAL 0.6 - 16.6 mIU/mL POST-MENOPAUSAL ON MHT 1.1 - 52.4 mIU/mL NOT ON MHT 8.6 - 61.8 mIU/mL MALE 1.2 - 10.6 mIU/mL Performed By: #### L 503.0106, L506.1001 #### [facility] [address] [place], [address] Testosterone, Serum Totalon 01-11-2024 Testosterone [Mass/Vol] 398.15 ng/dL Normal [facility] Comment on above: Order Comment: Order Date: 09/25/24 Order Info: 0667-1 - BMP Order Info: 76668-3 - MG Order Info: 2498-4 - FE [...] Performed By: #### Kenyon 503.0106, L506.1001 #### [facility] [address] [place], [address] L5000.0012on 12-25-2023 Vitamin B12 Normal [facility] Comment on above: Result Comment: TEST RESULTS LIMITS Vitamin B12 291 pg/mL 232-1245 [facility] OR[facility]INAL REPORT ON FILE IN LAB CONTAINS ADDITIONAL TEST SITE INFORMATION. Performed By: #### L 503.0106, L506.1001 #### [facility] [address] [place], [address] CBC-Complete Blood Cnt No Di ffon 12-22-2023 Erythrocyte distribution width (RBC) [Ratio] 16.7 % High 11.6-14.6 [facility] Comment on above: Order Comment: Order Date: 09/25/24 Order Info: 666-03 - BMP Order Info: 42065-8 - MG Order Info: 2497-06 - FE Order Info: 2275-06 - MARTIN Performed By: #### L 503.0106, L506.1001 #### [facility] [address] [place], [place], [address] Hematocrit (Bld) [Volume fraction] 43.7 % Normal 40-54 [facility] Comment on above: Order Comment: Order Date: 09/25/24 Order Info: 666-03 - BMP Order Info: 42124-6 - MG Order Info: 2497-06 - FE Order Info: 2275-06 - MARTIN Performed By: #### L 503.0106, L506.1001 #### [facility] [address] [place], [place], [address] Hemoglobin (Bld) [Mass/Vol] 14.8 g/dL Normal 13.0-16.5 [facility] Comment on above: Order Comment: Order Date: 09/25/24 Order Info: 666-03 - BMP Order Info: 60882-0 - MG Order Info: 24910-09 - FE Order Info: 2275-06 - MARTIN Performed By: #### L 503.0106, L506.1001 #### [facility] [address] [place], [place], [address] MCH (RBC) [Entitic mass] 34.1 pg High 27.0-32.0 [facility] Comment on above: Order Comment: Order Date: 09/25/24 Order Info: 666-03 - BMP Order Info: 54769-4 - MG Order Info: 2497-06 - FE Order Info: 2275-06 - MARTIN Performed By: #### L 503.0106, L506.1001 #### [facility] [address] [place], [place], [address] MCHC (RBC) [Mass/Vol] 33.9 g/dL Normal 32-36 [facility] Comment on above: Order Comment: Order Date: 09/25/24 Order Info: 666-03 - BMP Order Info: 52701-2 - MG Order Info: 2498 - FE Order Info: 2275-06 - MARTIN Performed By: #### L 503.0106, L506.1001 #### [facility] [address] [place], [address] MCV (RBC) [Entitic vol] 100.7 fL High 80-94 [facility] Comment on above: Order Comment: Order Date: 09/25/24 Order Info: 666-03 - BMP Order Info: 80456-5 - MG Order Info: 2497-06 - FE Order Info: 2275-06 - MARTIN Performed By: #### L 503.0106, L506.1001 #### [facility] [address] [place], [address] Platelet mean volume (Bld) [Entitic vol] 11.4 fL Normal 6.2-12.0 [facility] Comment on above: Order Comment: Order Date: 09/25/24 Order Info: 666-03 - BMP Order Info: 79295-3 - MG Order Info: 24910-09 - FE Order Info: 2275-06 - MARTIN Performed By: #### L 503.0106, L506.1001 #### [facility] [address] [place], [address] Platelets (Bld) [#/Vol] 219 10*3/uL Normal 150-450 [facility] Comment on above: Order Comment: Order Date: 09/25/24 Order Info: 666-03 - BMP Order Info: 78725-5 - MG Order Info: 2497-06 - FE Order Info: 2275-06 - MARTIN Performed By: #### L 503.0106, L506.1001 #### [facility] [address] [place], [place], [address] RBC (Bld) [#/Vol] 4.34 10*6/uL Low 4.6-6.2 [facility] Comment on above: Order Comment: Order Date: 09/25/24 Order Info: 0667-1 - BMP Order Info: 29077-8 - MG Order Info: 4 - FE Order Info: 2275-06 - MARTIN Performed By: #### L 503.0106, L506.1001 #### [facility] [address] [place], [place], [address] RDW SD 62.4 fl High 35.1-43.9 [facility] Comment on above: Order Comment: Order Date: 09/25/24 Order Info: 666-03 - BMP Order Info: 38071-1 - MG Order Info: 2497-06 - FE Order Info: 2275-06 - MARTIN Performed By: #### L 503.0106, L506.1001 #### [facility] [address] [place], [place], [address] WBC (Bld) [#/Vol] 7.6 10*3/uL Normal 4.4-11.0 [facility] Comment on above: Order Comment: Order Date: 09/25/24 Order Info: 0667- - BMP Order Info: 24467-4 - MG Order Info: 2497-06 - FE Order Info: 2275-06 - MARTIN Performed By: #### L 503.0106, L506.1001 #### [facility] [address] [place], [place], [address] Comprehensive Metabolic Prof ilon 12-22-2023 Albumin [Mass/Vol] 3.2 g/dL Normal 3.2-5.0 [facility] Comment on above: Order Comment: Order Date: 09/25/24 Order Info: 0667-1 - BMP Order Info: 20323-3 - MG Order Info: 2497-06 - FE Order Info: 2275-06 - MARTIN Performed By: #### L 503.0106, L506.1001 #### [facility] [address] [place], [address] Albumin/Globulin [Mass ratio] 0.9 {ratio} Normal 0.9-2.4 [facility] Comment on above: Order Comment: Order Date: 09/25/24 Order Info: 666-03 - BMP Order Info: 98998-1 - MG Order Info: 2497-06 - FE Order Info: 2275-06 - MARTIN Performed By: #### L 503.0106, L506.1001 #### [facility] [address] [place], [address] ALK P 64 U/L Normal 45-117 [facility] Comment on above: Order Comment: Order Date: 09/25/24 Order Info: 666-03 - BMP Order Info: 34911-5 - MG Order Info: 2497-06 - FE Order Info: 2275-06 - MARTIN Performed By: #### L 503.0106, L506.1001 #### [facility] [address] [place], [address] ALT [Catalytic activity/Vol] 48 U/L Normal 16-61 [facility] Comment on above: Order Comment: Order Date: 09/25/24 Order Info: 666-03 - BMP Order Info: 78472-7 - MG Order Info: 24910-09 - FE Order Info: 2275-06 - MARTIN Performed By: #### L 503.0106, L506.1001 #### [facility] [address] [place], [address] AST [Catalytic activity/Vol] 37 U/L Normal 15-37 [facility] Comment on above: Order Comment: Order Date: 09/25/24 Order Info: 666-03 - BMP Order Info: 54351-5 - MG Order Info: 24910-09 - FE Order Info: 4 - MARTIN Performed By: #### L 503.0106, L506.1001 #### [facility] [address] [place], [address] Bilirubin [Mass/Vol] 0.50 mg/dL Normal 0.20-1.00 [facility] Comment on above: Order Comment: Order Date: 09/25/24 Order Info: 0667-1 - BMP Order Info: 16378-4 - MG Order Info: 2497-4 - FE Order Info: 2275-4 - MARTIN Result Comment: For patients on eltrombopag therapy, use of Dimension [place] TBIL is not recommended. Performed By: #### L 503.0106, L506.1001 #### [facility] [address] [place], [place], [address] (944) BUN/CRE 10.2 RATIO Normal 10-20 [facility] Comment on above: Order Comment: Order Date: 09/25/24 Order Info: 06 - BMP Order Info: 75095-9 - MG Order Info: 2497-06 - FE Order Info: 2275-06 - MARTIN Performed By: #### L 503.0106, L506.1001 #### [facility] [address] [place], [address] CA,Total 9.0 mg/dL Normal 8.5-10.1 [facility] Comment on above: Order Comment: Order Date: 09/25/24 Order Info: 06- - BMP Order Info: 34105-4 - MG Order Info: 24910-09 - FE Order Info: 2275-06 - MARTIN Performed By: #### L 503.0106, L506.1001 #### [facility] [address] [place], [address] Chloride [Moles/Vol] 106 mmol/L Normal 98-107 [facility] Comment on above: Order Comment: Order Date: 09/25/24 Order Info: 0667-1 - BMP Order Info: 94697-7 - MG Order Info: 2497-06 - FE Order Info: 2275-06 - MARTIN Performed By: #### L 503.0106, L506.1001 #### [facility] [address] [place], [place], [address] CO2 [Moles/Vol] 25.0 mmol/L Normal 21.0-32.0 [facility] Comment on above: Order Comment: Order Date: 09/25/24 Order Info: 666-1 - BMP Order Info: 92600-1 - MG Order Info: 4 - FE Order Info: 2275-06 - MARTIN Performed By: #### L 503.0106, L506.1001 #### [facility] [address] [place], [address] Creatinine [Mass/Vol] 1.86 mg/dL High 0.70-1.30 [facility] Comment on above: Order Comment: Order Date: 09/25/24 Order Info: 666- - BMP Order Info: 77266-3 - MG Order Info: 2497-06 - FE Order Info: 2275-06 - MARTIN Result Comment: The validity of the calculated GFR GFRAA in patients over 70 years has not been determined. Clinical correlation is essential. Performed By: #### L 503.0106, L506.1001 #### [facility] [address] [place], [address] EST GFR - AA 48 mL/min Low >60 [facility] Comment on above: Order Comment: Order Date: 09/25/24 Order Info: 666-03 - BMP Order Info: 73109-4 - MG Order Info: 2497-06 - FE Order Info: 2275-06 - MARTIN Result Comment: Afri can Gambian GFR Calc Performed By: #### L 503.0106, L506.1001 #### [facility] [address] [place], [address] GAP 7 Normal 5-15 [facility] Comment on above: Order Comment: Order Date: 09/25/24 Order Info: 666- - BMP Order Info: 90305-1 - MG Order Info: 2497-06 - FE Order Info: 2275-06 - MARTIN Performed By: #### L 503.0106, L506.1001 #### [facility] [address] [place], [address] GFR/1.73 sq M.predicted among non-blacks MDRD (S/P/Bld) [Vol rate/Area] 40 mL/min/{1.73_m2} Low >60 [facility] Comment on above: Order Comment: Order Date: 09/25/24 Order Info: 0667- - BMP Order Info: 61485-2 - MG Order Info: 2497-06 - FE Order Info: 2275-4 - MARTIN Result Comment: Non- GFR Calc Performed By: #### L 503.0106, L506.1001 #### [facility] [address] [place], [address] Globulin (S) [Mass/Vol] 3.4 g/dL Normal 2.2-4.2 [facility] Comment on above: Order Comment: Order Date: 09/25/24 Order Info: 06- - BMP Order Info: 96050-7 - MG Order Info: 2497-06 - FE Order Info: 2275-06 - MARTIN Performed By: #### L 503.0106, L506.1001 #### [facility] [address] [place], [address] Glucose [Mass/Vol] 115 mg/dL High 74-106 [facility] Comment on above: Order Comment: Order Date: 09/25/24 Order Info: 0667-1 - BMP Order Info: 13457-2 - MG Order Info: 2497-06 - FE Order Info: 2275-4 - MARTIN Result Comment: Fast ing Glucose result from 100 to 125 mg/dL suggests IMPAIRED HOMEOSTASIS per A.D.A. criteria. Performed By: #### L 503.0106, L506.1001 #### [facility] [address] [place], [place], [address] Potassium [Moles/Vol] 4.3 mmol/L Normal 3.5-5.1 [facility] Comment on above: Order Comment: Order Date: 09/25/24 Order Info: 0667- - BMP Order Info: 66542-1 - MG Order Info: 2498-4 - FE Order Info: 6-4 - MARTIN Performed By: #### L 503.0106, L506.1001 #### [facility] [address] [place], [address] Sodium [Moles/Vol] 138 mmol/L Normal 136-145 [facility] Comment on above: Order Comment: Order Date: 09/25/24 Order Info: 666- - BMP Order Info: 29349-7 - MG Order Info: 24984 - FE Order Info: 4 - MARTIN Performed By: #### L 503.0106, L506.1001 #### [facility] [address] [place], [place], [address] T PROT 6.6 g/dL Normal 6.4-8.2 [facility] Comment on above: Order Comment: Order Date: 09/25/24 Order Info: 666-03 - BMP Order Info: 35300-4 - MG Order Info: 24984 - FE Order Info: 4 - MARTIN Performed By: #### L 503.0106, L506.1001 #### [facility] [address] [facility] [address] [place], [place], [address] Urea nitrogen [Mass/Vol] 19 mg/dL High 7-18 [facility] Comment on above: Order Comment: Order Date: 09/25/24 Order Info: 666-03 - BMP Order Info: 65318-5 - MG Order Info: 2498-4 - FE Order Info: 227-4 - MARTIN Performed By: #### L 503.0106, L506.1001 #### [facility] [address] [place], [address] Ferritinon 12-22-2023 Ferritin [Mass/Vol] 452 ng/mL High 26-388 [facility] Comment on above: Order Comment: Order Date: 09/25/24 Order Info: 666- - BMP Order Info: 74474-5 - MG Order Info: 2498-4 - FE Order Info: 2275-06 - MARTIN Performed By: #### L 503.0106, L506.1001 #### [facility] [address] [place], [address] Ironon 12-22-2023 Iron [Mass/Vol] 92 ug/dL Normal 65-175 [facility] Comment on above: Order Comment: Order Date: 09/25/24 Order Info: 666- - BMP Order Info: 88819-9 - MG Order Info: 2497-06 FE Order Info: 2275-06 - MARTIN Performed By: #### L 503.0106, L506.1001 #### [facility] [address] [place], [address] Lipid Profileon 12-22-2023 Cholesterol [Mass/Vol] 112 mg/dL Normal 200 [facility] Comment on above: Order Comment: Order Date: 09/25/24 Order Info: 666-03 - BMP Order Info: 83543-7 - MG Order Info: 2497-06 FE Order Info: 2275-06 - MARTIN Result Comment: <200 mg/dL Desirable 200-240 mg/dL Borderline >240 mg/dL High Risk Performed By: #### L 503.0106, L506.1001 #### [facility] [address] [place], [address] Cholesterol in HDL [Mass/Vol] 44 mg/dL Normal [facility] Comment on above: Order Comment: Order Date: 09/25/24 Order Info: 06- - BMP Order Info: 98838-8 - MG Order Info: 2497-06 - FE Order Info: 2275-06 - MARTIN Result Comment: The drugs N-Acetylcysteine and Metamizole may falsely depress this assay. Reference Range HDL <40 mg/dL Low HDL Cholesterol HDL >or= 60 mg/dL High HDL Cholesterol Performed By: #### L 503.0106, L506.1001 #### [facility] [address] [place], [address] Cholesterol in LDL [Mass/Vol] 47 mg/dL Normal 0-130 [facility] Comment on above: Order Comment: Order Date: 09/25/24 Order Info: 06- - BMP Order Info: 52780-0 - MG Order Info: 2497-06 Order Info: 2275-06 - MARTIN Performed By: #### L 503.0106, L506.1001 #### [facility] [address] [place], [address] Cholesterol in VLDL [Mass/Vol] 21 mg/dL Normal 5-40 [facility] Comment on above: Order Comment: Order Date: 09/25/24 Order Info: 666-03 - BMP Order Info: 04292-9 - MG Order Info: 2497-06 Order Info: 2275-06 - MARTIN Performed By: #### L 503.0106, L506.1001 #### [facility] [address] [place], [address] Triglyceride [Mass/Vol] 104 mg/dL Normal [facility] Comment on above: Order Comment: Order Date: 09/25/24 Order Info: 666-03 - BMP Order Info: 44118-6 - MG Order Info: 2497-06 Order Info: 2275-06 - MARTIN Result Comment: The drugs N-Acetylcysteine and Metamizole may falsely depress this assay. Serum Triglycerides Reference Interval Normal <150 mg/dL Borderline high 150 - 199 mg/dL High 200 - 499 mg/dL Very High > or = 500 mg/dL Performed By: #### L 503.0106, L506.1001 #### [facility] [address] [place], [address] Oncology Visit Reporton 12-06 Oncology Visit Report [facility] [address] [place] [address] OFFICE VISIT Date of Service: 12/22/23 1331 MR#: [id number] Acct: [id number] Name: YEFRI YANEZ Rep #: [id number] : 1965 From: Dangelo Botello MD Age/Sex: 58/M [place] [facility] [place] Status: Signed HPI Subjective Date [...] for follow up after CT. Feeling well [facility] Medical History Abnormal chest x-ray [...] 12.5 mg (more content not included)... Normal [facility] Basophil percentageOrdered B y: Jose Ramon Turner on 05-27-2023 Bilirubin [Mass/Vol] 0.60 mg/dL 0.20-1.00 [facility] Comment on above: For patients on eltr ombopag therapy, use of Dimension [place] TBIL is not recommended. Chloride [Moles/Vol] 106 mmol/L 98-107 [facility] Glucose [Mass/Vol] 106 mg/dL 74-106 [facility] Comment on above: Fasting Glucose resu lt from 100 to 125 mg/dL suggests IMPAIRED HOMEOSTASIS per A.D.A. criteria. Potassium [Moles/Vol] 3.8 mmol/L 3.5-5.1 [facility] Comment on above: Slight Hemolysis, Re sult may be falsely increased. Protein [Mass/Vol] 6.7 g/dL 6.4-8.2 [facility] Sodium [Moles/Vol] 138 mmol/L 136-145 [facility] Testosterone [Mass/Vol] 173.63 ng/dL [facility] Comment on above: CENTRAL 90% REFERENC E RANGES MALE AGE <50 197.44 - 669.58 ng/dL MALE AGE > or = 50 187.72 - 684.19 ng/dL FEMALE AGE <50 8.38 - 35.01 ng/dL FEMALE AGE > or = 50 <7.00 - 35.92 ng/dL Effective as of 10/01/20 Iron measurement (mass/mass) Ordered By: Jose Ramon Turner on 05-27-2023 Iron (Unsp spec) [Mass/Mass] 115 ug/dL 65-175 [facility] Comment on above: Slight Hemolysis, Re sult may be falsely increased. Laboratory - Chemistry and C hemistry - challengeOrdered By: Jose Ramon Turner on 05-27-2023 Albumin/Globulin [Mass ratio] 0.9 {ratio} 0.9-2.4 [facility] ALP [Catalytic activity/Vol] 73 U/L 45-117 [facility] ALT [Catalytic activity/Vol] 54 U/L 16-61 [facility] CO2 [Moles/Vol] 24.0 mmol/L 21.0-32.0 [facility] Cobalamin (Vitamin B12) [Mass/Vol] 241 pg/mL 211-911 [facility] Ferritin [Mass/Vol] 515 ng/mL 26-388 [facility] Globulin (S) [Mass/Vol] 3.6 g/dL 2.2-4.2 [facility] Urea nitrogen/Creatinine [Mass ratio] 10.7 mg/mg 10-20 [facility] No Panel InformationOrdered By: Jose Ramon Turner on 05-27-2023 Estimated GFR (MDRD) Amer 54 mL/min >60 [facility] Comment on above: GFR Calc Estimated GFR (MDRD) Non-Af Amer 44 mL/min >60 [facility] Comment on above: Non- GFR Calc Serum or plasma calcium cory urement (mass/volume)Ordered By: Jose Ramon Turner on 05-27-2023 Calcium [Mass/Vol] 8.8 mg/dL 8.5-10.1 [facility] Serum or plasma creatinine m easurement (mass/volume)Ordered By: Jose Ramon Turner on 05-27-2023 Creatinine [Mass/Vol] 1.69 mg/dL 0.70-1.30 [facility] Comment on above: The validity of the calculated GFR & GFRAA in patients over 70 years has not been determined. Clinical correlation is essential. Serum or plasma thyroid stim ulating hormone (TSH) measurement (units/volume)Ordered By: Jose Ramon Turner on 05-27-2023 TSH Qn 3.25 uIU/mL 0.358-3.74 [facility] Serum or plasma urea nitroge n measurement (mass/volume)Ordered By: Jose Ramon Turner on 05-27-2023 Urea nitrogen [Mass/Vol] 18 mg/dL 7-18 [facility] Thin prep Papanicolaou smear with manual screeningOrdered By: Jose Ramon Turner on 05-27-2023 Thin prep Papanicolaou smear with manual screening 3.1 g/dL 3.2-5.0 [facility] Thin prep Papanicolaou smear with manual screening 40 U/L 15 [facility] Comment on above: Slight Hemolysis, Re sult may be falsely increased. Thin prep Papanicolaou smear with manual screening 8 07-20 [facility] Clostridioides difficile nuc leic acid assay by PCROrdered By: Jose Ramon Turner on 05-21-2023 C. difficile DNA SANDOVAL+probe Ql (Unsp spec) [facility] Lower GI hemoglobin IA Ql (S tl)Ordered By: Jose Ramon Turner on 05-21-2023 Stool Occult Blood (STEVENSON) Positive [facility] Ova and parasitesOrdered By: Jose Ramon Turner on 05-21-2023 Ova and parasites identified LM Nom (Unsp spec) [facility] Stool enteric pathogen panel by probe and target amplification methodOrdered By: Jose Ramon Turner on 05-21-2023 Gastrointestinal pathogens panel SANDOVAL+probe (Stl) [facility] Stool pancreatic elastase me asurement (mass/mass)Ordered By: Jose Ramon Turner on 05-21-2023 Elastase.pancreatic (Stl) [Mass/Mass] See comment [facility] Comment on above: TEST RESULTS LIMITSP ancreatic Elastase, Fecal 218 ug Elast./g >200 Severe Pancreatic Insufficiency: <100 Moderate Pancreatic Insufficiency: 100 - 200 Normal: >200 TESTING PERFORMED AT [facility]. ORIGINAL REPORT ON FILE IN LAB CONTAINS ADDITIONAL TEST SITE INFORMATION. Basophil percentageOrdered B y: Jose Ramon Turner on 05-20-2023 Basophil percentage 2.0 mg/dL 2.5-4.9 [facility] Chloride [Moles/Vol] 104 mmol/L 98-107 [facility] Glucose [Mass/Vol] 113 mg/dL 74-106 [facility] Comment on above: Fasting Glucose resu lt from 100 to 125 mg/dL suggests IMPAIRED HOMEOSTASIS per A.D.A. criteria. Potassium [Moles/Vol] 3.8 mmol/L 3.5-5.1 [facility] Sodium [Moles/Vol] 137 mmol/L 136-145 [facility] - Chemistry and C hemistry - challengeOrdered By: Jose Ramon Turner on 05-20-2023 CO2 [Moles/Vol] 24.0 mmol/L 21.0-32.0 [facility] Urea nitrogen/Creatinine [Mass ratio] 11.1 mg/mg 10-20 [facility] No Panel InformationOrdered By: Jose Ramon Turner on 05-20-2023 Estimated GFR (MDRD) Amer 47 mL/min >60 [facility] Comment on above: GFR Calc Estimated GFR (MDRD) Non-Af Amer 39 mL/min >60 [facility] Comment on above: Non- GFR Calc Serum or plasma calcium cory urement (mass/volume)Ordered By: Jose Ramon Turner on 05-20-2023 Calcium [Mass/Vol] 8.6 mg/dL 8.5-10.1 [facility] Serum or plasma creatinine m easurement (mass/volume)Ordered By: Jose Ramon Turner on 05-20-2023 Creatinine [Mass/Vol] 1.89 mg/dL 0.70-1.30 [facility] Comment on above: The validity of the calculated GFR & GFRAA in patients over 70 years has not been determined. Clinical correlation is essential. Serum or plasma urea nitroge n measurement (mass/volume)Ordered By: Jose Ramon Turner on 05-20-2023 Urea nitrogen [Mass/Vol] 21 mg/dL 7-18 [facility] Thin prep Papanicolaou smear with manual screeningOrdered By: Jose Ramon Turner on 05-20-2023 Thin prep Papanicolaou smear with manual screening 3.2 g/dL 3.2-5.0 [facility] Absolute lymphocyte countOrd ered By: Dangelo Ayan on 04-12-2023 Lymphocytes Auto (Unsp spec) [#/Vol] 1.08 10*3/uL 0.83-4.51 [facility] Automated lymphocyte count a s percentage of total leukocytesOrdered By: Dangelo Botello on 04-12-2023 Lymphocytes/100 WBC Auto (Unsp spec) 18.6 % 19-41 [facility] Basophil percentageOrdered B y: Dangelo Botello on 04-12-2023 Basophils/100 WBC (Bld) 0.3 % 0-1 [facility] Bilirubin [Mass/Vol] 0.50 mg/dL 0.20-1.00 [facility] Comment on above: For patients on eltr ombopag therapy, use of Dimension [place] TBIL is not recommended. Chloride [Moles/Vol] 106 mmol/L 98-107 [facility] Eosinophils/100 WBC (Bld) 0.5 % 0-5 [facility] Glucose [Mass/Vol] 121 mg/dL 74-106 [facility] Comment on above: Fasting Glucose resu lt from 100 to 125 mg/dL suggests IMPAIRED HOMEOSTASIS per A.D.A. criteria. Hemoglobin (Bld) [Mass/Vol] 13.9 g/dL 13.0-16.5 [facility] LDH [Catalytic activity/Vol] 391 U/L 87-241 [facility] Comment on above: Slight Hemolysis, Re sult may be falsely increased. Monocytes/100 WBC (Bld) 6.4 % 0-10 [facility] Neutrophils (Bld) [#/Vol] 4.3 10*3/uL 2.0-7.7 [facility] Neutrophils/100 WBC (Bld) 74.0 % 47-70 [facility] Potassium [Moles/Vol] 3.6 mmol/L 3.5-5.1 [facility] Comment on above: Slight Hemolysis, Re sult may be falsely increased. Protein [Mass/Vol] 7.2 g/dL 6.4-8.2 [facility] Sodium [Moles/Vol] 141 mmol/L 136-145 [facility] WBC (Bld) [#/Vol] 5.8 10*3/uL 4.4-11.0 [facility] Blood manual differential co mment interpretation (narrative result)Ordered By: Dangelo Botello on 04-12-2023 Manual differential comment Piyush (Bld) [Interp] SCANNED [facility] Comment on above: 1+ ANISOCYTOSIS Determination of erythrocyte mean corpuscular volume (MCV)Ordered By: Dangelo Botello on 04-12-2023 MCV (RBC) [Entitic vol] 100.7 fL 80-94 [facility] Erythrocyte distribution wid th ratioOrdered By: Dangelo Botello on 04-12-2023 Erythrocyte distribution width (RBC) [Ratio] 17.9 % 11.6-14.6 [facility] Erythrocyte distribution wid th standard deviationOrdered By: Dangelo Botello on 04-12-2023 Erythrocyte distribution width (RBC) [Entitic vol] 66.3 fL 35.1-43.9 [facility] Hematocrit Auto (Bld) [Volum e fraction]Ordered By: Dangelo Botello on 04-12-2023 Hematocrit (Bld) [Volume fraction] 41.9 % 40-54 [facility] Immature granulocytes/100 WB C Auto (Bld)Ordered By: Dangelo Botello on 04-12-2023 Immature granulocytes/100 WBC (Bld) 0.200 % 0.0-0.9 [facility] Comment on above: IG% - Immature Granu locytes (promyelocytes, myelocytes and metamyelocytes) > 1% indicates that a LEFT SHIFT is Present. Laboratory - Chemistry and C hemistry - challengeOrdered By: Dangelo Botello on 04-12-2023 Albumin/Globulin [Mass ratio] 0.8 {ratio} 0.9-2.4 [facility] ALP [Catalytic activity/Vol] 61 U/L 45-117 [facility] ALT [Catalytic activity/Vol] 47 U/L 16-61 [facility] CO2 [Moles/Vol] 28.0 mmol/L 21.0-32.0 [facility] Globulin (S) [Mass/Vol] 3.9 g/dL 2.2-4.2 [facility] Urea nitrogen/Creatinine [Mass ratio] 10.8 mg/mg 10-20 [facility] - Hematology and Cell countsOrdered By: Dangelo Botello on 04-12-2023 MCH (RBC) [Entitic mass] 33.4 pg 27.0-32.0 [facility] MCHC (RBC) [Mass/Vol] 33.2 g/dL 32-36 [facility] Nucleated RBC/100 WBC (Bld) [Ratio] 0.3 % 0-5 [facility] Platelets (Bld) [#/Vol] 275 10*3/uL 150-450 [facility] No Panel InformationOrdered By: Dangelo Botello on 04-12-2023 Estimated Creatinine Clearance Calc 57.07 ml/min [facility] Estimated GFR (MDRD) Amer 48 mL/min >60 [facility] Comment on above: GFR Calc Estimated GFR (MDRD) Non-Af Amer 40 mL/min >60 [facility] Comment on above: Non- GFR Calc Platelet mean volume Kevin-Ec ker (Bld) [Entitic vol]Ordered By: Dangelo Botello on 04-12-2023 Platelet mean volume (Bld) [Entitic vol] 10.4 fL 6.2-12.0 [facility] RBC Auto (Bld) [#/Vol]Ordere d By: Dangelo Botello on 04-12-2023 RBC (Bld) [#/Vol] 4.16 10*6/uL 4.6-6.2 [facility] Serum or plasma calcium cory urement (mass/volume)Ordered By: Dangelo Botello on 04-12-2023 Calcium [Mass/Vol] 8.8 mg/dL 8.5-10.1 [facility] Serum or plasma creatinine m easurement (mass/volume)Ordered By: Dangelo Botello on 04-12-2023 Creatinine [Mass/Vol] 1.86 mg/dL 0.70-1.30 [facility] Comment on above: The validity of the calculated GFR & GFRAA in patients over 70 years has not been determined. Clinical correlation is essential. Serum or plasma urea nitroge n measurement (mass/volume)Ordered By: Dnagelo Botello on 04-12-2023 Urea nitrogen [Mass/Vol] 20 mg/dL 7-18 [facility] Thin prep Papanicolaou smear with manual screeningOrdered By: Dangelo Botello on 04-12-2023 Thin prep Papanicolaou smear with manual screening 3.3 g/dL 3.2-5.0 [facility] Thin prep Papanicolaou smear with manual screening 34 U/L 15-37 [facility] Comment on above: Slight Hemolysis, Re sult may be falsely increased. Thin prep Papanicolaou smear with manual screening 7 5-15 [facility] Basophil percentageOrdered B y: Isidra Chiu on 02-12-2023 Basophil percentage 0-5 SEEN /hpf 0-5 [facility] Bilirubin Test strip Ql (U)O rdered By: Isidra Chiu on 02-12-2023 Bilirubin Ql (U) Negative Negative [facility] Ketones Test strip Ql (U)Ord ered By: Isidra Chiu on 02-12-2023 Ketones Ql (U) Negative Negative [facility] Mucus LM Ql (Urine sed)Order ed By: Isidra Chiu on 02-12-2023 Mucus Ql (Urine sed) 0 SEEN /hpf [facility] Nitrite Test strip Ql (U)Ord ered By: Isidra Chiu on 02-12-2023 Nitrite Ql (U) Negative Negative [facility] Protein Test strip Ql (U)Ord ered By: Isidra Chiu on 02-12-2023 Protein Ql (U) 15 mg/dl Negative [facility] Squamous epithelial cells de tection in urine sediment by light microscopyOrdered By: Isidra Chiu on 02-12-2023 Epithelial cells.squamous LM Ql (Urine sed) 0 SEEN /hpf 0-5 [facility] Urine blood detectionOrdered By: Isidra Chiu on 02-12-2023 RBC Ql (U) Negative Negative [facility] RBC Ql (U) 0 SEEN /hpf 0-5 [facility] Urine clarityOrdered By: Bruce Chiu on 02-12-2023 Clarity (U) Clear Clear [facility] Urine color determinationOrd ered By: Isidra Chiu on 02-12-2023 Color (U) Yellow Yellow [facility] Urine creatinine measurement (mass/volume)Ordered By: Isidra Chiu on 02-12-2023 Creatinine (U) [Mass/Vol] 194.00 mg/dL NO RANGE EST. [facility] Urine glucose detectionOrder ed By: Isidra Chiu on 02-12-2023 Glucose Ql (U) Normal mg/dl Normal [facility] Urine leukocyte esterase det ection by dipstickOrdered By: Isidra Chiu on 02-12-2023 Leukocyte esterase Test strip Ql (U) 25 /ul Negative [facility] Urine pHOrdered By: Lynette Chiu on 02-12-2023 pH (U) 5.0 [pH] 5.0 - 8.0 [facility] Urine protein measurement (m ass/volume)Ordered By: Isidra Chiu on 02-12-2023 Protein (U) [Mass/Vol] 20.7 mg/dL 0.0-11.8 [facility] Urine protein/creatinine mas s ratioOrdered By: Isidra Chiu on 02-12-2023 Protein/Creatinine (U) [Mass ratio] 107 mg/g CRE 0-200 [facility] Urine sediment bacteria coun t by microscopy (number/high power field)Ordered By: Isidra Chiu on 02-12-2023 Bacteria LM.HPF (Urine sed) [#/Area] 0 /[HPF] None Seen [facility] Urine specific gravity measu rementOrdered By: Isidra Chiu on 02-12-2023 Specific gravity (U) [Rel density] 1.020 1.002-1.03 0 [facility] Urobilinogen Auto test strip Ql (U)Ordered By: Isidra Chiu on 02-12-2023 Urobilinogen Ql (U) Normal mg/dl Normal [facility] Absolute lymphocyte countOrd ered By: Carol Chiu on 12-17-2022 Lymphocytes Auto (Unsp spec) [#/Vol] 0.88 10*3/uL 0.83-4.51 [facility] Basophil percentageOrdered B y: Carol Chiu on 12-17-2022 Basophils/100 WBC (Bld) 0.4 % 0-1 [facility] Chloride [Moles/Vol] 107 mmol/L 98-107 [facility] Eosinophils/100 WBC (Bld) 1.0 % 0-5 [facility] Glucose [Mass/Vol] 110 mg/dL 74-106 [facility] Comment on above: Fasting Glucose resu lt from 100 to 125 mg/dL suggests IMPAIRED HOMEOSTASIS per A.D.A. criteria. Neutrophils (Bld) [#/Vol] 3.7 10*3/uL 2.0-7.7 [facility] Neutrophils/100 WBC (Bld) 71.5 % 47-70 [facility] Potassium [Moles/Vol] 3.5 mmol/L 3.5-5.1 [facility] Sodium [Moles/Vol] 138 mmol/L 136-145 [facility] WBC (Bld) [#/Vol] 5.2 10*3/uL 4.4-11.0 [facility] Blood erythrocytes count (nu mber/volume)Ordered By: Carol Chiu on 12-17-2022 RBC (Bld) [#/Vol] 4.04 10*6/uL 4.6-6.2 [facility] Blood hemoglobin measurement (mass/volume)Ordered By: Carol Chiu on 12-17-2022 Hemoglobin (Bld) [Mass/Vol] 13.9 g/dL 13.0-16.5 [facility] Blood lymphocytes/100 leukoc ytesOrdered By: Carol Chiu on 12-17-2022 Lymphocytes/100 WBC (Bld) 16.9 % 19-41 [facility] Blood monocytes/100 leukocyt esOrdered By: Carol Chiu on 12-17-2022 Monocytes/100 WBC (Bld) 9.8 % 0-10 [facility] Blood platelet mean volumeOr dered By: Carol Chiu on 12-17-2022 Platelet mean volume (Bld) [Entitic vol] 11.2 fL 6.2-12.0 [facility] Determination of erythrocyte mean corpuscular volume (MCV)Ordered By: Carol Chiu on 12-17-2022 MCV (RBC) [Entitic vol] 102.0 fL 80-94 [facility] Hematocrit Auto (Bld) [Volum e fraction]Ordered By: Carol Chiu on 12-17-2022 Hematocrit (Bld) [Volume fraction] 41.2 % 40-54 [facility] INR in Blood by Coagulation assayOrdered By: Marquise Padilla on 12-17-2022 INR Coag (Bld) [Relative time] 2.2 {INR} [facility] - Chemistry and C hemistry - challengeOrdered By: Carol Chiu on 12-17-2022 CO2 [Moles/Vol] 26.0 mmol/L 21.0-32.0 [facility] Urea nitrogen/Creatinine [Mass ratio] 11.5 mg/mg 10-20 [facility] - CoagulationOrde red By: Marquise Padilla on 12-17-2022 PT Coag (PPP) [Time] 24.6 s 11.7-14.9 [facility] - Hematology and Cell countsOrdered By: Carol Chiu on 12-17-2022 Erythrocyte distribution width (RBC) [Entitic vol] 63.6 fL 35.1-43.9 [facility] Erythrocyte distribution width (RBC) [Ratio] 16.9 % 11.6-14.6 [facility] Immature granulocytes/100 WBC (Bld) 0.400 % 0.0-0.9 [facility] Comment on above: IG% - Immature Granu locytes (promyelocytes, myelocytes and metamyelocytes) > 1% indicates that a LEFT SHIFT is Present. MCH (RBC) [Entitic mass] 34.4 pg 27.0-32.0 [facility] Nucleated RBC/100 WBC (Bld) [Ratio] 0.8 % 0-5 [facility] MCHC Auto (RBC) [Mass/Vol]Or dered By: Carol Chiu on 12-17-2022 MCHC (RBC) [Mass/Vol] 33.7 g/dL 32-36 [facility] No Panel InformationOrdered By: Carol Chiu on 12-17-2022 Estimated Creatinine Clearance Calc 51.97 ml/min [facility] Estimated GFR (MDRD) Amer 55 mL/min >60 [facility] Comment on above: GFR Calc Estimated GFR (MDRD) Non-Af Amer 46 mL/min >60 [facility] Comment on above: Non- GFR Calc Platelets bldOrdered By: Lina Chiu on 12-17-2022 Platelets (Bld) [#/Vol] 193 10*3/uL 150-450 [facility] Serum or plasma calcium cory urement (mass/volume)Ordered By: Carol Chiu on 12-17-2022 Calcium [Mass/Vol] 9.3 mg/dL 8.5-10.1 [facility] Serum or plasma creatinine m easurement (mass/volume)Ordered By: Carol Chiu on 12-17-2022 Creatinine [Mass/Vol] 1.65 mg/dL 0.70-1.30 [facility] Comment on above: The validity of the calculated GFR & GFRAA in patients over 70 years has not been determined. Clinical correlation is essential. Serum or plasma urea nitroge n measurement (mass/volume)Ordered By: Carol Chiu on 12-17-2022 Urea nitrogen [Mass/Vol] 19 mg/dL 7-18 [facility] Thin prep Papanicolaou smear with manual screeningOrdered By: Carol Chiu on 12-17-2022 Thin prep Papanicolaou smear with manual screening 5 5-15 [facility] Blood manual differential co mment interpretation (narrative result)Ordered By: Marquise Padilla on 12-16-2022 Manual differential comment Piyush (Bld) [Interp] SCANNED [facility] - Hematology and Cell countsOrdered By: Marquise Padilla on 12-16-2022 Anisocytosis Ql (Bld) 2+ [facility] Macrocytes detectionOrdered By: Marquise Padilla on 12-16-2022 Macrocytes Ql (Bld) 2+ [facility] - Chemistry and C hemistry - challengeOrdered By: Speedy Bass on 12-15-2022 Natriuretic peptide B (Bld) [Mass/Vol] 574.1 pg/mL 0-100 [facility] No Panel InformationOrdered By: Marquise Padilla on 12-15-2022 Streptococcus pneumoniae Antigen (M [facility] Streptococcus pneumoniae Antigen (M [facility] No Panel InformationOrdered By: Speedy Bass on 12-15-2022 Troponin I High Sensitivity 40 pg/mL 3.0-78.0 [facility] Comment on above: Please Note: New [place] t Units and Gender Specific Reference Ranges. For more information see Policy Stat Procedure [place] High Sensitivity Troponin (TNIH) and attachments. Urine Legionella pneumophila antigen detectionOrdered By: Marquise Padilla on 12-15-2022 L. pneumophila Ag Ql (U) [facility] L. pneumophila Ag Ql (U) [facility] Basophil percentageOrdered B y: Jose Ramon Turner on 11-12-2022 Chloride [Moles/Vol] 106 mmol/L 98-107 [facility] Glucose [Mass/Vol] 89 mg/dL 74-106 [facility] Potassium [Moles/Vol] 3.9 mmol/L 3.5-5.1 [facility] Comment on above: Slight Hemolysis, Re sult may be falsely increased. Sodium [Moles/Vol] 138 mmol/L 136-145 [facility] WBC (Bld) [#/Vol] 5.4 10*3/uL 4.4-11.0 [facility] Blood erythrocytes count (nu mber/volume)Ordered By: Jose Ramon Turner on 11-12-2022 RBC (Bld) [#/Vol] 4.08 10*6/uL 4.6-6.2 [facility] Blood hemoglobin measurement (mass/volume)Ordered By: Jose Ramon Turner on 11-12-2022 Hemoglobin (Bld) [Mass/Vol] 14.2 g/dL 13.0-16.5 [facility] Blood manual differential co mment interpretation (narrative result)Ordered By: Jose Ramon Turner on 11-12-2022 Manual differential comment Piyush (Bld) [Interp] SCANNED [facility] Comment on above: 2+ ANISOCYTOSIS2+ MA CROCYTOSIS Blood platelet mean volumeOr dered By: Jose Ramon Turner on 11-12-2022 Platelet mean volume (Bld) [Entitic vol] 10.9 fL 6.2-12.0 [facility] Determination of erythrocyte mean corpuscular volume (MCV)Ordered By: Jose Ramon Turner on 11-12-2022 MCV (RBC) [Entitic vol] 105.1 fL 80-94 [facility] Hematocrit Auto (Bld) [Volum e fraction]Ordered By: Jose Ramon Turner on 11-12-2022 Hematocrit (Bld) [Volume fraction] 42.9 % 40-54 [facility] - Chemistry and C hemistry - challengeOrdered By: Jose Ramon Turner on 11-12-2022 Natriuretic peptide B (Bld) [Mass/Vol] 255.5 pg/mL 0-100 [facility] CO2 [Moles/Vol] 27.0 mmol/L 21.0-32.0 [facility] Urea nitrogen/Creatinine [Mass ratio] 9.8 mg/mg 10-20 [facility] - Hematology and Cell countsOrdered By: Jose Ramon Turner on 11-12-2022 Erythrocyte distribution width (RBC) [Entitic vol] 69.2 fL 35.1-43.9 [facility] Erythrocyte distribution width (RBC) [Ratio] 17.9 % 11.6-14.6 [facility] MCH (RBC) [Entitic mass] 34.8 pg 27.0-32.0 [facility] MCHC Auto (RBC) [Mass/Vol]Or dered By: Jose Ramon Turner on 11-12-2022 MCHC (RBC) [Mass/Vol] 33.1 g/dL 32-36 [facility] No Panel InformationOrdered By: Jose Ramon Turner on 11-12-2022 Estimated GFR (MDRD) Amer 52 mL/min >60 [facility] Comment on above: GFR Calc Estimated GFR (MDRD) Non-Af Amer 43 mL/min >60 [facility] Comment on above: Non- GFR Calc Platelets bldOrdered By: Bruce Turner on 11-12-2022 Platelets (Bld) [#/Vol] 242 10*3/uL 150-450 [facility] Serum or plasma calcium cory urement (mass/volume)Ordered By: Jose Ramon Turner on 11-12-2022 Calcium [Mass/Vol] 9.0 mg/dL 8.5-10.1 [facility] Serum or plasma creatinine m easurement (mass/volume)Ordered By: Jose Ramon Turner on 11-12-2022 Creatinine [Mass/Vol] 1.73 mg/dL 0.70-1.30 [facility] Comment on above: The validity of the calculated GFR & GFRAA in patients over 70 years has not been determined. Clinical correlation is essential. Serum or plasma urea nitroge n measurement (mass/volume)Ordered By: Jose Ramon Turner on 11-12-2022 Urea nitrogen [Mass/Vol] 17 mg/dL 7-18 [facility] [facility] Thin prep Papanicolaou smear with manual screeningOrdered By: Jose Ramon Turner on 11-12-2022 Thin prep Papanicolaou smear with manual screening 5 5-15 [facility] Absolute lymphocyte countOrd ered By: Dangelo Botello on 09-03-2022 Lymphocytes Auto (Unsp spec) [#/Vol] 0.99 10*3/uL 0.83-4.51 [facility] Basophil percentageOrdered B y: Dangelo Botello on 09-03-2022 Basophils/100 WBC (Bld) 0.3 % 0-1 [facility] Bilirubin [Mass/Vol] 0.60 mg/dL 0.20-1.00 [facility] Comment on above: For patients on eltr ombopag therapy, use of Dimension [place] TBIL is not recommended. Chloride [Moles/Vol] 102 mmol/L 98-107 [facility] Eosinophils/100 WBC (Bld) 0.2 % 0-5 [facility] Glucose [Mass/Vol] 110 mg/dL 74-106 [facility] Comment on above: Fasting Glucose resu lt from 100 to 125 mg/dL suggests IMPAIRED HOMEOSTASIS per A.D.A. criteria. LDH [Catalytic activity/Vol] 288 U/L 87-241 [facility] Neutrophils (Bld) [#/Vol] 5.0 10*3/uL 2.0-7.7 [facility] Neutrophils/100 WBC (Bld) 77.5 % 47-70 [facility] Potassium [Moles/Vol] 3.6 mmol/L 3.5-5.1 [facility] Protein [Mass/Vol] 7.2 g/dL 6.4-8.2 [facility] Sodium [Moles/Vol] 136 mmol/L 136-145 [facility] WBC (Bld) [#/Vol] 6.4 10*3/uL 4.4-11.0 [facility] Blood erythrocytes count (nu mber/volume)Ordered By: Dangelo Botello on 09-03-2022 RBC (Bld) [#/Vol] 4.37 10*6/uL 4.6-6.2 [facility] Blood hemoglobin measurement (mass/volume)Ordered By: Dangelo Botello on 09-03-2022 Hemoglobin (Bld) [Mass/Vol] 15.2 g/dL 13.0-16.5 [facility] Blood lymphocytes/100 leukoc ytesOrdered By: Dangelo Botello on 09-03-2022 Lymphocytes/100 WBC (Bld) 15.4 % 19-41 [facility] Blood monocytes/100 leukocyt esOrdered By: Dangelo Botello on 09-03-2022 Monocytes/100 WBC (Bld) 6.1 % 0-10 [facility] Blood platelet mean volumeOr dered By: Dangelo Botello on 09-03-2022 Platelet mean volume (Bld) [Entitic vol] 10.0 fL 6.2-12.0 [facility] Determination of erythrocyte mean corpuscular volume (MCV)Ordered By: Dangelo Botello on 09-03-2022 MCV (RBC) [Entitic vol] 100.7 fL 80-94 [facility] Hematocrit Auto (Bld) [Volum e fraction]Ordered By: Dangelo Botello on 09-03-2022 Hematocrit (Bld) [Volume fraction] 44.0 % 40-54 [facility] Laboratory - Chemistry and C hemistry - challengeOrdered By: Dangelo Ayan on 09-03-2022 ALP [Catalytic activity/Vol] 76 U/L 45-117 [facility] ALT [Catalytic activity/Vol] 52 U/L 16-61 [facility] CO2 [Moles/Vol] 28.0 mmol/L 21.0-32.0 [facility] Globulin (S) [Mass/Vol] 4.1 g/dL 2.2-4.2 [facility] Urea nitrogen/Creatinine [Mass ratio] 9.5 mg/mg 10-20 [facility] Laboratory - Hematology and Cell countsOrdered By: Dangelo Botello on 09-03-2022 Anisocytosis Ql (Bld) 1+ [facility] Erythrocyte distribution width (RBC) [Entitic vol] 68.4 fL 35.1-43.9 [facility] Erythrocyte distribution width (RBC) [Ratio] 18.4 % 11.6-14.6 [facility] Immature granulocytes/100 WBC (Bld) 0.500 % 0.0-0.9 [facility] Comment on above: IG% - Immature Granu locytes (promyelocytes, myelocytes and metamyelocytes) > 1% indicates that a LEFT SHIFT is Present. MCH (RBC) [Entitic mass] 34.8 pg 27.0-32.0 [facility] Nucleated RBC/100 WBC (Bld) [Ratio] 0.5 % 0-5 [facility] MCHC Auto (RBC) [Mass/Vol]Or dered By: Dangelo Botello on 09-03-2022 MCHC (RBC) [Mass/Vol] 34.5 g/dL 32-36 [facility] No Panel InformationOrdered By: Dangelo Botello on 09-03-2022 Estimated Creatinine Clearance Calc 47.91 ml/min [facility] Estimated GFR (MDRD) Amer 50 mL/min >60 [facility] Comment on above: GFR Calc Estimated GFR (MDRD) Non-Af Amer 42 mL/min >60 [facility] Comment on above: Non- GFR Calc Platelets bldOrdered By: Jose Botello on 09-03-2022 Platelets (Bld) [#/Vol] 241 10*3/uL 150-450 [facility] Serum or plasma albumin cory urement (mass/volume)Ordered By: Dangelo Botello on 09-03-2022 Albumin [Mass/Vol] 3.1 g/dL 3.2-5.0 [facility] Serum or plasma albumin/glob ulin mass ratioOrdered By: Dangelo Botello on 09-03-2022 Albumin/Globulin [Mass ratio] 0.8 {ratio} 0.9-2.4 [facility] Serum or plasma calcium cory urement (mass/volume)Ordered By: Dangelo Botello on 09-03-2022 Calcium [Mass/Vol] 9.2 mg/dL 8.5-10.1 [facility] Serum or plasma creatinine m easurement (mass/volume)Ordered By: Dangelo Botello on 09-03-2022 Creatinine [Mass/Vol] 1.79 mg/dL 0.70-1.30 [facility] Comment on above: The validity of the calculated GFR & GFRAA in patients over 70 years has not been determined. Clinical correlation is essential. Serum or plasma urea nitroge n measurement (mass/volume)Ordered By: Dangelo Botello on 09-03-2022 Urea nitrogen [Mass/Vol] 17 mg/dL 7-18 [facility] Thin prep Papanicolaou smear with manual screeningOrdered By: Dangelo Botello on 09-03-2022 Thin prep Papanicolaou smear with manual screening 36 U/L 15-37 [facility] Thin prep Papanicolaou smear with manual screening 6 5-15 [facility] Absolute lymphocyte countOrd ered By: Dr. Wei on 06-29-2022 Lymphocytes Auto (Unsp spec) [#/Vol] 0.27 10*3/uL 0.83-4.51 [facility] Basophil percentageOrdered B y: Dr. Wei on 06-29-2022 Basophils/100 WBC (Bld) 0.1 % 0-1 [facility] Chloride [Moles/Vol] 107 mmol/L 98-107 [facility] Eosinophils/100 WBC (Bld) 0.0 % 0-5 [facility] Glucose [Mass/Vol] 210 mg/dL 74-106 [facility] Comment on above: Glucose result great er than or equal to 200 mg/dLsuggests DIABETES MELLITUS per A.D.A. criteria. Neutrophils (Bld) [#/Vol] 8.6 10*3/uL 2.0-7.7 [facility] Neutrophils/100 WBC (Bld) 91.8 % 47-70 [facility] Potassium [Moles/Vol] 3.9 mmol/L 3.5-5.1 [facility] Sodium [Moles/Vol] 137 mmol/L 136-145 [facility] WBC (Bld) [#/Vol] 9.3 10*3/uL 4.4-11.0 [facility] Basophil percentageOrdered B y: Dr. Lu on 06-29-2022 Cholesterol [Mass/Vol] 126 mg/dL <200 [facility] Comment on above: <200 mg/dL Desirable 200-240 mg/dL Borderline >240 mg/dL High Risk Triglyceride [Mass/Vol] 60 mg/dL <199 [facility] Comment on above: The drugs N-Acetylcy steine and Metamizole may falsely depress this assay.Serum Triglycerides Reference Interval Normal <150 mg/dL Borderline high 150 - 199 mg/dL High 200 - 499 mg/dL Very High > or = 500 mg/dL Blood erythrocytes count (nu mber/volume)Ordered By: Dr. Wei on 06-29-2022 RBC (Bld) [#/Vol] 4.28 10*6/uL 4.6-6.2 [facility] Blood hemoglobin measurement (mass/volume)Ordered By: Dr. Wei on 06-29-2022 Hemoglobin (Bld) [Mass/Vol] 14.4 g/dL 13.0-16.5 [facility] Blood lymphocytes/100 leukoc ytesOrdered By: Dr. Wei on 06-29-2022 Lymphocytes/100 WBC (Bld) 2.9 % 19-41 [facility] Blood manual differential co mment interpretation (narrative result)Ordered By: Dr. Wei on 06-29-2022 Manual differential comment Piyush (Bld) [Interp] SCANNED [facility] Comment on above: LYMPHOPENIA Blood monocytes/100 leukocyt esOrdered By: Dr[address] Wei on 06-29-2022 Monocytes/100 WBC (Bld) 4.4 % 0-10 [facility] Blood platelet mean volumeOr dered By: Dr. Wei on 06-29-2022 Platelet mean volume (Bld) [Entitic vol] 11.4 fL 6.2-12.0 [facility] Determination of erythrocyte mean corpuscular volume (MCV)Ordered By: Dr. Wei on 06-29-2022 MCV (RBC) [Entitic vol] 101.9 fL 80-94 [facility] Hematocrit Auto (Bld) [Volum e fraction]Ordered By: Dr. Wei on 06-29-2022 Hematocrit (Bld) [Volume fraction] 43.6 % 40-54 [facility] Laboratory - Chemistry and C hemistry - challengeOrdered By: Dr. Wei on 06-29-2022 CO2 [Moles/Vol] 27.0 mmol/L 21.0-32.0 [facility] Urea nitrogen/Creatinine [Mass ratio] 16.2 mg/mg 10-20 [facility] Laboratory - Hematology and Cell countsOrdered By: Dr. Wei on 06-29-2022 Anisocytosis Ql (Bld) 2+ [facility] Erythrocyte distribution width (RBC) [Entitic vol] 66.1 fL 35.1-43.9 [facility] Erythrocyte distribution width (RBC) [Ratio] 18.0 % 11.6-14.6 [facility] Immature granulocytes/100 WBC (Bld) 0.800 % 0.0-0.9 [facility] Comment on above: IG% - Immature Granu locytes (promyelocytes, myelocytes and metamyelocytes) > 1% indicates that a LEFT SHIFT is Present. MCH (RBC) [Entitic mass] 33.6 pg 27.0-32.0 [facility] Nucleated RBC/100 WBC (Bld) [Ratio] 2.7 % 0-5 [facility] MCHC Auto (RBC) [Mass/Vol]Or dered By: Dr. Wei on 06-29-2022 MCHC (RBC) [Mass/Vol] 33.0 g/dL 32-36 [facility] No Panel InformationOrdered By: Dr. Wei on 06-29-2022 Estimated Creatinine Clearance Calc 55.69 ml/min [facility] Estimated GFR (MDRD) Amer 60 mL/min >60 [facility] Comment on above: GFR Calc Estimated GFR (MDRD) Non-Af Amer 50 mL/min >60 [facility] Comment on above: Non- GFR Calc Platelets bldOrdered By: Dr. Wei on 06-29-2022 Platelets (Bld) [#/Vol] 191 10*3/uL 150-450 [facility] Serum or plasma calcium cory urement (mass/volume)Ordered By: Dr. Wei on 06-29-2022 Calcium [Mass/Vol] 9.1 mg/dL 8.5-10.1 [facility] Serum or plasma cholesterol in HDL measurement (mass/volume)Ordered By: Dr. Lu on 06-29-2022 Cholesterol in HDL [Mass/Vol] 54 mg/dL >40 [facility] Comment on above: The drugs N-Acetylcy steine and Metamizole may falsely depress this assay. Reference Range HDL <40 mg/dL Low HDL Cholesterol HDL >or= 60 mg/dL High HDL Cholesterol Serum or plasma cholesterol in VLDL measurement (mass/volume)Ordered By: Dr. Lu on 06-29-2022 Cholesterol in VLDL [Mass/Vol] 12 mg/dL 5-40 [facility] Serum or plasma creatinine m easurement (mass/volume)Ordered By: Dr. Wei on 06-29-2022 Creatinine [Mass/Vol] 1.54 mg/dL 0.70-1.30 [facility] Comment on above: The validity of the calculated GFR & GFRAA in patients over 70 years has not been determined. Clinical correlation is essential. Serum or plasma low density lipoprotein (LDL) cholesterol measurement (mass/volume)Ordered By: Dr. Lu on 06-29-2022 Cholesterol in LDL [Mass/Vol] 60 mg/dL 0-130 [facility] Serum or plasma urea nitroge n measurement (mass/volume)Ordered By: Dr. Wei on 06-29-2022 Urea nitrogen [Mass/Vol] 25 mg/dL 7-18 [facility] Thin prep Papanicolaou smear with manual screeningOrdered By: Dr. Wei on 06-29-2022 Thin prep Papanicolaou smear with manual screening 3 5-15 [facility] Basophil percentageOrdered B y: Dr. Lu on 06-28-2022 Bilirubin [Mass/Vol] 0.80 mg/dL 0.20-1.00 [facility] Comment on above: For patients on eltr ombopag therapy, use of Dimension [place] TBIL is not recommended. Protein [Mass/Vol] 6.7 g/dL 6.4-8.2 [facility] Blood polychromasia detectio n by light microscopyOrdered By: Dr. Lu on 06-28-2022 Polychromasia LM Ql (Bld) RARE [facility] INR in Blood by Coagulation assayOrdered By: Dr. Lu on 06-28-2022 INR Coag (Bld) [Relative time] 2.1 {INR} [facility] Laboratory - Chemistry and C hemistry - challengeOrdered By: Dr. Lu on 06-28-2022 ALP [Catalytic activity/Vol] 111 U/L 45-117 [facility] ALT [Catalytic activity/Vol] 146 U/L 16-61 [facility] Globulin (S) [Mass/Vol] 3.6 g/dL 2.2-4.2 [facility] Magnesium [Mass/Vol] 2.1 mg/dL 1.6-2.6 [facility] Laboratory - CoagulationOrde red By: Dr. Lu on 06-28-2022 PT Coag (PPP) [Time] 22.9 s 11.7-14.9 [facility] Laboratory - Microbiology an d Antimicrobial susceptibilityOrdered By: Estelita Lu on 06-28-2022 Respiratory pathogens DNA and RNA 12b panel SANDOVAL+probe (Unsp spec) [facility] - Microbiology an d Antimicrobial susceptibilityOrdered By: Dr. Lu on 06-28-2022 Respiratory pathogens DNA and RNA 12b panel SANDOVAL+probe (Unsp spec) [facility] Macrocytes detectionOrdered By: Dr. Lu on 06-28-2022 Macrocytes Ql (Bld) 1+ [facility] No Panel InformationOrdered By: Dr. Lu on 06-28-2022 Troponin I High Sensitivity 87 pg/mL 3.0-78.0 [facility] Comment on above: Please Note: New [place] t Units and Gender Specific Reference Ranges. For more information see Policy Stat Procedure [place] High Sensitivity Troponin (TNIH) and attachments. Thyroid Stimulating Hormone (TSH) 2.20 uIU/mL 0.358-3.74 [facility] Ovalocyte detectionOrdered B y: Dr. Lu on 06-28-2022 Ovalocytes LM Ql (Bld) RARE [facility] Serum or plasma albumin cory urement (mass/volume)Ordered By: Dr. Lu on 06-28-2022 Albumin [Mass/Vol] 3.1 g/dL 3.2-5.0 [facility] Serum or plasma albumin/glob ulin mass ratioOrdered By: Dr. Lu on 06-28-2022 Albumin/Globulin [Mass ratio] 0.9 {ratio} 0.9-2.4 [facility] Serum procalcitonin measurem entOrdered By: Dr. Lu on 06-28-2022 Procalcitonin [Mass/Vol] 0.09 ng/mL 0.00-0.09 [facility] Comment on above: A procalcitonin (PCT ) [...] smear with manual screening 130 U/L 15-37 [facility] Absolute lymphocyte countOrd ered By: Dr. Hastings on 06-27-2022 Lymphocytes Auto (Unsp spec) [#/Vol] 0.93 10*3/uL 0.83-4.51 [facility] Basophil percentageOrdered B y: Dr. Lu on 06-27-2022 Basophil percentage 2.8 mg/dL 2.5-4.9 [facility] Basophil percentageOrdered B y: Dr. Hastings on 06-27-2022 Basophils/100 WBC (Bld) 0.4 % 0-1 [facility] Chloride [Moles/Vol] 109 mmol/L 98-107 [facility] Eosinophils/100 WBC (Bld) 0.5 % 0-5 [facility] Glucose [Mass/Vol] 127 mg/dL 74-106 [facility] Comment on above: Fasting Glucose resu lt greater than or equal to 126 mg/dL suggests DIABETES MELLITUS per A.D.A. criteria. Neutrophils (Bld) [#/Vol] 4.2 10*3/uL 2.0-7.7 [facility] Neutrophils/100 WBC (Bld) 75.4 % 47-70 [facility] Potassium [Moles/Vol] 3.5 mmol/L 3.5-5.1 [facility] Sodium [Moles/Vol] 140 mmol/L 136-145 [facility] WBC (Bld) [#/Vol] 5.5 10*3/uL 4.4-11.0 [facility] Blood erythrocytes count (nu mber/volume)Ordered By: Dr. Hastings on 06-27-2022 RBC (Bld) [#/Vol] 4.24 10*6/uL 4.6-6.2 [facility] Blood hemoglobin measurement (mass/volume)Ordered By: Dr. Hastings on 06-27-2022 Hemoglobin (Bld) [Mass/Vol] 14.6 g/dL 13.0-16.5 [facility] Blood lymphocytes/100 leukoc ytesOrdered By: Dr. Hastings on 06-27-2022 Lymphocytes/100 WBC (Bld) 16.8 % 19-41 [facility] Blood manual differential co mment interpretation (narrative result)Ordered By: Dr. Hastings on 06-27-2022 Manual differential comment Piyush (Bld) [Interp] SCANNED [facility] Blood monocytes/100 leukocyt esOrdered By: Dr. Hastings on 06-27-2022 Monocytes/100 WBC (Bld) 6.0 % 0-10 [facility] Blood platelet mean volumeOr dered By: Dr. Hastings on 06-27-2022 Platelet mean volume (Bld) [Entitic vol] 11.2 fL 6.2-12.0 [facility] Determination of erythrocyte mean corpuscular volume (MCV)Ordered By: Dr. Hastings on 06-27-2022 MCV (RBC) [Entitic vol] 103.3 fL 80-94 [facility] Hematocrit Auto (Bld) [Volum e fraction]Ordered By: Dr. Hasitngs on 06-27-2022 Hematocrit (Bld) [Volume fraction] 43.8 % 40-54 [facility] INR in Blood by Coagulation assayOrdered By: Dr. Hastings on 06-27-2022 INR Coag (Bld) [Relative time] 2.0 {INR} [facility] Laboratory - Chemistry and C hemistry - challengeOrdered By: Dr. Hastings on 06-27-2022 CO2 [Moles/Vol] 26.0 mmol/L 21.0-32.0 [facility] Natriuretic peptide B (Bld) [Mass/Vol] 278.3 pg/mL 0-100 [facility] Urea nitrogen/Creatinine [Mass ratio] 14.7 mg/mg 10-20 [facility] Laboratory - CoagulationOrde red By: Dr. Hastings on 06-27-2022 aPTT Coag (Bld) [Time] 46.5 s 24.1-36.2 [facility] PT Coag (PPP) [Time] 22.5 s 11.7-14.9 [facility] Laboratory - Hematology and Cell countsOrdered By: Dr. Hastings on 06-27-2022 Anisocytosis Ql (Bld) 2+ [facility] Erythrocyte distribution width (RBC) [Entitic vol] 67.8 fL 35.1-43.9 [facility] Erythrocyte distribution width (RBC) [Ratio] 17.9 % 11.6-14.6 [facility] Immature granulocytes/100 WBC (Bld) 0.900 % 0.0-0.9 [facility] Comment on above: IG% - Immature Granu locytes (promyelocytes, myelocytes and metamyelocytes) > 1% indicates that a LEFT SHIFT is Present. MCH (RBC) [Entitic mass] 34.4 pg 27.0-32.0 [facility] Nucleated RBC/100 WBC (Bld) [Ratio] 2.9 % 0-5 [facility] MCHC Auto (RBC) [Mass/Vol]Or dered By: Dr. Hastings on 06-27-2022 MCHC (RBC) [Mass/Vol] 33.3 g/dL 32-36 [facility] Macrocytes detectionOrdered By: Dr. Hastings on 06-27-2022 Macrocytes Ql (Bld) 2+ [facility] No Panel InformationOrdered By: Dr. Hastings on 06-27-2022 Estimated Creatinine Clearance Calc 46.61 ml/min [facility] Estimated GFR (MDRD) Amer 49 mL/min >60 [facility] Comment on above: GFR Calc Estimated GFR (MDRD) Non-Af Amer 40 mL/min >60 [facility] Comment on above: Non- GFR Calc Troponin I High Sensitivity 92 pg/mL 3.0-78.0 [facility] Comment on above: Please Note: [place] t Units and Gender Specific Reference Ranges. For more information see Policy Stat Procedure [place] High Sensitivity Troponin (TNIH) and attachments. Platelets bldOrdered By: Dr. Hastings on 06-27-2022 Platelets (Bld) [#/Vol] 201 10*3/uL 150-450 [facility] Serum or plasma calcium cory urement (mass/volume)Ordered By: Dr. Hastings on 06-27-2022 Calcium [Mass/Vol] 8.9 mg/dL 8.5-10.1 [facility] Serum or plasma creatinine m easurement (mass/volume)Ordered By: Dr. Hastings on 06-27-2022 Creatinine [Mass/Vol] 1.84 mg/dL 0.70-1.30 [facility] Comment on above: The validity of the calculated GFR & GFRAA in patients over 70 years has not been determined. Clinical correlation is essential. Serum or plasma urea nitroge n measurement (mass/volume)Ordered By: Dr. Hastings on 06-27-2022 Urea nitrogen [Mass/Vol] 27 mg/dL 7-18 [facility] Thin prep Papanicolaou smear with manual screeningOrdered By: Dr. Hastings on 06-27-2022 Thin prep Papanicolaou smear with manual screening 5 5-15 [facility] Basophil percentageOrdered B y: Dr. Che on 05-20-2022 Chloride [Moles/Vol] 103 mmol/L 98-107 [facility] Glucose [Mass/Vol] 170 mg/dL 74-106 [facility] Comment on above: Fasting Glucose resu lt greater than or equal to 126 mg/dL suggests DIABETES MELLITUS per A.D.A. criteria. Potassium [Moles/Vol] 3.3 mmol/L 3.5-5.1 [facility] Sodium [Moles/Vol] 140 mmol/L 136-145 [facility] INR in Blood by Coagulation assayOrdered By: Dr. Dukes on 05-20-2022 INR Coag (Bld) [Relative time] 2.7 {INR} [facility] Laboratory - Chemistry and C hemistry - challengeOrdered By: Dr. Che on 05-20-2022 CO2 [Moles/Vol] 30.0 mmol/L 21.0-32.0 [facility] Urea nitrogen/Creatinine [Mass ratio] 11.8 mg/mg 10-20 [facility] Laboratory - CoagulationOrde red By: Dr. Dukes on 05-20-2022 PT Coag (PPP) [Time] 28.3 s 11.7-14.9 [facility] No Panel InformationOrdered By: Dr. Che on 05-20-2022 Estimated Creatinine Clearance Calc 48.18 ml/min [facility] Estimated GFR (MDRD) Amer 51 mL/min >60 [facility] Comment on above: GFR Calc Estimated GFR (MDRD) Non-Af Amer 42 mL/min >60 [facility] Comment on above: Non- GFR Calc Serum or plasma calcium cory urement (mass/volume)Ordered By: Dr. Che on 05-20-2022 Calcium [Mass/Vol] 8.8 mg/dL 8.5-10.1 [facility] Serum or plasma creatinine m easurement (mass/volume)Ordered By: Dr. Che on 05-20-2022 Creatinine [Mass/Vol] 1.78 mg/dL 0.70-1.30 [facility] Comment on above: The validity of the calculated GFR & GFRAA in patients over 70 years has not been determined. Clinical correlation is essential. Serum or plasma urea nitroge n measurement (mass/volume)Ordered By: Dr. Che on 05-20-2022 Urea nitrogen [Mass/Vol] 21 mg/dL 09-22 [facility] Thin prep Papanicolaou smear with manual screeningOrdered By: Dr. Che on 05-20-2022 Thin prep Papanicolaou smear with manual screening 7 07-20 [facility] Absolute lymphocyte countOrd ered By: Dr. Dukes on 05-19-2022 Lymphocytes Auto (Unsp spec) [#/Vol] 0.92 10*3/uL 0.83-4.51 [facility] Basophil percentageOrdered B y: Dr. Dukes on 05-19-2022 Basophils/100 WBC (Bld) 0.2 % 0-1 [facility] Bilirubin [Mass/Vol] 0.70 mg/dL 0.20-1.00 [facility] Comment on above: For patients on eltr ombopag therapy, use of Dimension [place] TBIL is not recommended. Eosinophils/100 WBC (Bld) 0.5 % 0-5 [facility] Neutrophils (Bld) [#/Vol] 5.0 10*3/uL 2.0-7.7 [facility] Neutrophils/100 WBC (Bld) 80.2 % 47-70 [facility] Protein [Mass/Vol] 6.4 g/dL 6.4-8.2 [facility] WBC (Bld) [#/Vol] 6.2 10*3/uL 4.4-11.0 [facility] Blood erythrocytes count (nu mber/volume)Ordered By: Dr. Dukes on 05-19-2022 RBC (Bld) [#/Vol] 3.95 10*6/uL 4.6-6.2 [facility] Blood hemoglobin measurement (mass/volume)Ordered By: Dr. Dukes on 05-19-2022 Hemoglobin (Bld) [Mass/Vol] 13.5 g/dL 13.0-16.5 [facility] Blood lymphocytes/100 leukoc ytesOrdered By: Dr. Dukes on 05-19-2022 Lymphocytes/100 WBC (Bld) 14.8 % 19-41 [facility] Blood manual differential co mment interpretation (narrative result)Ordered By: Dr. Dukes on 05-19-2022 Manual differential comment Piyush (Bld) [Interp] SCANNED [facility] Blood monocytes/100 leukocyt esOrdered By: Dr. Dukes on 05-19-2022 Monocytes/100 WBC (Bld) 4.0 % 0-10 [facility] Blood platelet mean volumeOr dered By: Dr. Dukes on 05-19-2022 Platelet mean volume (Bld) [Entitic vol] 10.0 fL 6.2-12.0 [facility] Blood polychromasia detectio n by light microscopyOrdered By: Dr. Dukes on 05-19-2022 Polychromasia LM Ql (Bld) RARE [facility] Determination of erythrocyte mean corpuscular volume (MCV)Ordered By: Dr. Dukes on 05-19-2022 MCV (RBC) [Entitic vol] 104.1 fL 80-94 [facility] Hematocrit Auto (Bld) [Volum e fraction]Ordered By: Dr. Dukes on 05-19-2022 Hematocrit (Bld) [Volume fraction] 41.1 % 40-54 [facility] Laboratory - Chemistry and C hemistry - challengeOrdered By: Dr. Dukes on 05-19-2022 ALP [Catalytic activity/Vol] 64 U/L 45-117 [facility] ALT [Catalytic activity/Vol] 61 U/L 16-61 [facility] Globulin (S) [Mass/Vol] 3.4 g/dL 2.2-4.2 [facility] Magnesium [Mass/Vol] 2.1 mg/dL 1.6-2.6 [facility] Laboratory - Hematology and Cell countsOrdered By: Dr. Dukes on 05-19-2022 Anisocytosis Ql (Bld) 2+ [facility] Erythrocyte distribution width (RBC) [Entitic vol] 74.2 fL 35.1-43.9 [facility] Erythrocyte distribution width (RBC) [Ratio] 19.1 % 11.6-14.6 [facility] Immature granulocytes/100 WBC (Bld) 0.300 % 0.0-0.9 [facility] Comment on above: IG% - Immature Granu locytes (promyelocytes, myelocytes and metamyelocytes) > 1% indicates that a LEFT SHIFT is Present. MCH (RBC) [Entitic mass] 34.2 pg 27.0-32.0 [facility] Nucleated RBC/100 WBC (Bld) [Ratio] 0.6 % 0-5 [facility] Laboratory - Microbiology an d Antimicrobial susceptibilityOrdered By: Dr. Dukes on 05-19-2022 Respiratory pathogens DNA and RNA 12b panel SANODVAL+probe (Unsp spec) [facility] MCHC Auto (RBC) [Mass/Vol]Or dered By: Dr. Dukes on 05-19-2022 MCHC (RBC) [Mass/Vol] 32.8 g/dL 32-36 [facility] Macrocytes detectionOrdered By: Dr. Dukes on 05-19-2022 Macrocytes Ql (Bld) 1+ [facility] No Panel InformationOrdered By: Dr. Dukes on 05-19-2022 Thyroid Stimulating Hormone (TSH) 1.31 uIU/mL 0.358-3.74 [facility] Ovalocyte detectionOrdered B y: Dr. Dukes on 05-19-2022 Ovalocytes LM Ql (Bld) RARE [facility] Platelets bldOrdered By: Dr. Dukes on 05-19-2022 Platelets (Bld) [#/Vol] 173 10*3/uL 150-450 [facility] Serum or plasma albumin cory urement (mass/volume)Ordered By: Dr. Dukes on 05-19-2022 Albumin [Mass/Vol] 3.0 g/dL 3.2-5.0 [facility] Serum or plasma albumin/glob ulin mass ratioOrdered By: Dr. Dukes on 05-19-2022 Albumin/Globulin [Mass ratio] 0.9 {ratio} 0.9-2.4 [facility] Thin prep Papanicolaou smear with manual screeningOrdered By: Dr. Dukes on 05-19-2022 Thin prep Papanicolaou smear with manual screening 38 U/L 15-37 [facility] Absolute lymphocyte countOrd ered By: Dr. Banda on 05-18-2022 Lymphocytes Auto (Unsp spec) [#/Vol] 0.87 10*3/uL 0.83-4.51 [facility] Basophil percentageOrdered B y: Dr. Banda on 05-18-2022 Basophils/100 WBC (Bld) 0.5 % 0-1 [facility] Chloride [Moles/Vol] 105 mmol/L 98-107 [facility] Eosinophils/100 WBC (Bld) 0.2 % 0-5 [facility] Glucose [Mass/Vol] 124 mg/dL 74-106 [facility] Comment on above: Fasting Glucose resu lt from 100 to 125 mg/dL suggests IMPAIRED HOMEOSTASIS per A.D.A. criteria. Neutrophils (Bld) [#/Vol] 5.3 10*3/uL 2.0-7.7 [facility] Neutrophils/100 WBC (Bld) 80.8 % 47-70 [facility] Potassium [Moles/Vol] 3.8 mmol/L 3.5-5.1 [facility] Comment on above: Slight Hemolysis, Re sult may be falsely increased. Sodium [Moles/Vol] 143 mmol/L 136-145 [facility] WBC (Bld) [#/Vol] 6.6 10*3/uL 4.4-11.0 [facility] Blood erythrocytes count (nu mber/volume)Ordered By: Dr. Banda on 05-18-2022 RBC (Bld) [#/Vol] 4.33 10*6/uL 4.6-6.2 [facility] Blood hemoglobin measurement (mass/volume)Ordered By: Dr. Banda on 05-18-2022 Hemoglobin (Bld) [Mass/Vol] 14.6 g/dL 13.0-16.5 [facility] Blood lymphocytes/100 leukoc ytesOrdered By: Dr. Banda on 05-18-2022 Lymphocytes/100 WBC (Bld) 13.3 % 19-41 [facility] Blood monocytes/100 leukocyt esOrdered By: Dr. Banda on 05-18-2022 Monocytes/100 WBC (Bld) 4.9 % 0-10 [facility] Blood platelet adequacy dete ction by light microscopyOrdered By: Dr. Banda on 05-18-2022 Platelets LM Ql (Bld) SLT DEC ADEQ [facility] Blood platelet mean volumeOr dered By: Dr. Banda on 05-18-2022 Platelet mean volume (Bld) [Entitic vol] 10.3 fL 6.2-12.0 [facility] CNPNon 05-18-2022 CNPN Telephone (CARMOB) ----- YEFRI YANEZ ([id number]) 1965 M [facility] Date Time Provider Department 05/18/22 SAYRA TELLO During your visit today, we recorded the following information about you: Abbey Nash 05/18/2022 8:28 AM Signed Received a records request from [facility]. Will pull and fax records. Abbey Nash 05/18/2022 10:51 AM Signed Faxed records to [facility] at [phone] Allergies As of Date: 05/18/2022 Noted Allergy [...] by this patient by: SPOUSE Safia Carr, [facility] Problem List As Of Date [...] Encounter Status:Closed by ABBEY NASH on 05/18/22 [facility] COVID-19 virus antigen assay Ordered By: Dr. Dukes on 05-18-2022 SARS-CoV-2 (COVID-19) Ag IA.rapid Ql (Resp) Not detected Not Detect [facility] Comment on above: Normal Reference Ran ge: [...] (RBC) [Entitic vol] 102.1 fL 80-94 [facility] Hematocrit Auto (Bld) [Volum e fraction]Ordered By: Dr. Banda on 05-18-2022 Hematocrit (Bld) [Volume fraction] 44.2 % 40-54 [facility] INR in Blood by Coagulation assayOrdered By: Dr. Banda on 05-18-2022 INR Coag (Bld) [Relative time] 2.8 {INR} [facility] Laboratory - Chemistry and C hemistry - challengeOrdered By: Dr. Banda on 05-18-2022 CO2 [Moles/Vol] 31.0 mmol/L 21.0-32.0 [facility] Natriuretic peptide B (Bld) [Mass/Vol] 343.5 pg/mL 0-100 [facility] Urea nitrogen/Creatinine [Mass ratio] 11.5 mg/mg 10-20 [facility] Laboratory - CoagulationOrde red By: Dr. Banda on 05-18-2022 PT Coag (PPP) [Time] 28.9 s 11.7-14.9 [facility] Laboratory - Hematology and Cell countsOrdered By: Dr. Banda on 05-18-2022 Anisocytosis Ql (Bld) 2+ [facility] Erythrocyte distribution width (RBC) [Entitic vol] 74.1 fL 35.1-43.9 [facility] Erythrocyte distribution width (RBC) [Ratio] 19.4 % 11.6-14.6 [facility] Immature granulocytes/100 WBC (Bld) 0.300 % 0.0-0.9 [facility] Comment on above: IG% - Immature Granu locytes (promyelocytes, myelocytes and metamyelocytes) > 1% indicates that a LEFT SHIFT is Present. MCH (RBC) [Entitic mass] 33.7 pg 27.0-32.0 [facility] Nucleated RBC/100 WBC (Bld) [Ratio] 0.6 % 0-5 [facility] Laboratory - Microbiology an d Antimicrobial susceptibilityOrdered By: Alicia Dukes on 05-18-2022 Respiratory pathogens DNA and RNA 12b panel SANDOVAL+probe (Unsp spec) [facility] MCHC Auto (RBC) [Mass/Vol]Or dered By: Dr. Banda on 05-18-2022 MCHC (RBC) [Mass/Vol] 33.0 g/dL 32-36 [facility] No Panel InformationOrdered By: Dr. Banda on 05-18-2022 Estimated Creatinine Clearance Calc 54.62 ml/min [facility] Estimated GFR (MDRD) Amer 59 mL/min >60 [facility] Comment on above: GFR Calc Estimated GFR (MDRD) Non-Af Amer 48 mL/min >60 [facility] Comment on above: Non- GFR Calc Troponin I High Sensitivity 73 pg/mL 3.0-78.0 [facility] Comment on above: Please Note: New [place] t Units and Gender Specific Reference Ranges. For more information see Policy Stat Procedure [place] High Sensitivity Troponin (TNIH) and attachments. Ovalocyte detectionOrdered B y: Dr. Banda on 05-18-2022 Ovalocytes LM Ql (Bld) 1+ [facility] Platelets bldOrdered By: Dr. Banda on 05-18-2022 Platelets (Bld) [#/Vol] 183 10*3/uL 150-450 [facility] Serum or plasma calcium cory urement (mass/volume)Ordered By: Dr. Banda on 05-18-2022 Calcium [Mass/Vol] 9.2 mg/dL 8.5-10.1 [facility] Serum or plasma creatinine m easurement (mass/volume)Ordered By: Dr. Banda on 05-18-2022 Creatinine [Mass/Vol] 1.57 mg/dL 0.70-1.30 [facility] Comment on above: The validity of the calculated GFR & GFRAA in patients over 70 years has not been determined. Clinical correlation is essential. Serum or plasma urea nitroge n measurement (mass/volume)Ordered By: Dr. Banda on 05-18-2022 Urea nitrogen [Mass/Vol] 18 mg/dL 7-18 [facility] Thin prep Papanicolaou smear with manual screeningOrdered By: Dr. Banda on 05-18-2022 Thin prep Papanicolaou smear with manual screening 7 5-15 [facility] Basophil percentageOrdered B y: Dr. Chiu on 04-16-2022 Chloride [Moles/Vol] 105 mmol/L 98-107 [facility] Glucose [Mass/Vol] 110 mg/dL 74-106 [facility] Comment on above: Fasting Glucose resu lt from 100 to 125 mg/dL suggests IMPAIRED HOMEOSTASIS per A.D.A. criteria. Potassium [Moles/Vol] 3.7 mmol/L 3.5-5.1 [facility] Sodium [Moles/Vol] 141 mmol/L 136-145 [facility] INR in Blood by Coagulation assayOrdered By: Dr. Camacho on 04-16-2022 INR Coag (Bld) [Relative time] 2.1 {INR} [facility] Laboratory - Chemistry and C hemistry - challengeOrdered By: Dr. Chiu on 04-16-2022 CO2 [Moles/Vol] 31.0 mmol/L 21.0-32.0 [facility] Urea nitrogen/Creatinine [Mass ratio] 17.2 mg/mg 10-20 [facility] Laboratory - CoagulationOrde red By: Dr. Camacho on 04-16-2022 PT Coag (PPP) [Time] 23.6 s 11.7-14.9 [facility] No Panel InformationOrdered By: Dr. Chiu on 04-16-2022 Estimated Creatinine Clearance Calc 49.19 ml/min [facility] Estimated GFR (MDRD) Amer 54 mL/min >60 [facility] Comment on above: GFR Calc Estimated GFR (MDRD) Non-Af Amer 45 mL/min >60 [facility] Comment on above: Non- GFR Calc Serum or plasma calcium cory urement (mass/volume)Ordered By: Dr. Chiu on 04-16-2022 Calcium [Mass/Vol] 9.0 mg/dL 8.5-10.1 [facility] Serum or plasma creatinine m easurement (mass/volume)Ordered By: Dr. Chiu on 04-16-2022 Creatinine [Mass/Vol] 1.69 mg/dL 0.70-1.30 [facility] Comment on above: The validity of the calculated GFR & GFRAA in patients over 70 years has not been determined. Clinical correlation is essential. Serum or plasma urea nitroge n measurement (mass/volume)Ordered By: Dr. Chiu on 04-16-2022 Urea nitrogen [Mass/Vol] 29 mg/dL 7-18 [facility] Thin prep Papanicolaou smear with manual screeningOrdered By: Dr. Chiu on 04-16-2022 Thin prep Papanicolaou smear with manual screening 5 5-15 [facility] Absolute lymphocyte countOrd ered By: Dr. Chiu on 04-15-2022 Lymphocytes Auto (Unsp spec) [#/Vol] 0.77 10*3/uL 0.83-4.51 [facility] Basophil percentageOrdered B y: Dr. Chiu on 04-15-2022 Basophil percentage 3.9 mg/dL 2.5-4.9 [facility] Basophils/100 WBC (Bld) 0.6 % 0-1 [facility] Cholesterol [Mass/Vol] 190 mg/dL <200 [facility] Comment on above: <200 mg/dL Desirable 200-240 mg/dL Borderline >240 mg/dL High Risk Eosinophils/100 WBC (Bld) 0.4 % 0-5 [facility] Neutrophils (Bld) [#/Vol] 3.8 10*3/uL 2.0-7.7 [facility] Neutrophils/100 WBC (Bld) 74.5 % 47-70 [facility] Triglyceride [Mass/Vol] 159 mg/dL <199 [facility] Comment on above: The drugs N-Acetylcy steine and Metamizole may falsely depress this assay.Serum Triglycerides Reference Interval Normal <150 mg/dL Borderline high 150 - 199 mg/dL High 200 - 499 mg/dL Very High > or = 500 mg/dL WBC (Bld) [#/Vol] 5.1 10*3/uL 4.4-11.0 [facility] Blood erythrocytes count (nu mber/volume)Ordered By: Dr. Chiu on 04-15-2022 RBC (Bld) [#/Vol] 3.92 10*6/uL 4.6-6.2 [facility] Blood hemoglobin measurement (mass/volume)Ordered By: Dr. Chiu on 04-15-2022 Hemoglobin (Bld) [Mass/Vol] 12.6 g/dL 13.0-16.5 [facility] Blood lymphocytes/100 leukoc ytesOrdered By: Dr. Chiu on 04-15-2022 Lymphocytes/100 WBC (Bld) 15.1 % 19-41 [facility] Blood monocytes/100 leukocyt esOrdered By: Dr. Chiu on 04-15-2022 Monocytes/100 WBC (Bld) 8.4 % 0-10 [facility] Blood platelet mean volumeOr dered By: Dr. Chiu on 04-15-2022 Platelet mean volume (Bld) [Entitic vol] 11.1 fL 6.2-12.0 [facility] Determination of erythrocyte mean corpuscular volume (MCV)Ordered By: Dr. Chiu on 04-15-2022 MCV (RBC) [Entitic vol] 98.2 fL 80-94 [facility] Hematocrit Auto (Bld) [Volum e fraction]Ordered By: Dr. Chiu on 04-15-2022 Hematocrit (Bld) [Volume fraction] 38.5 % 40-54 [facility] Laboratory - Chemistry and C hemistry - challengeOrdered By: Dr. Chiu on 04-15-2022 Magnesium [Mass/Vol] 2.1 mg/dL 1.6-2.6 [facility] Comment on above: Moderate Hemolysis, Result may be falsely increased. Laboratory - Hematology and Cell countsOrdered By: Dr. Chiu on 04-15-2022 Anisocytosis Ql (Bld) 2+ [facility] Erythrocyte distribution width (RBC) [Entitic vol] 73.5 fL 35.1-43.9 [facility] Erythrocyte distribution width (RBC) [Ratio] 20.7 % 11.6-14.6 [facility] Immature granulocytes/100 WBC (Bld) 1.000 % 0.0-0.9 [facility] Comment on above: IG% - Immature Granu locytes (promyelocytes, myelocytes and metamyelocytes) > 1% indicates that a LEFT SHIFT is Present. MCH (RBC) [Entitic mass] 32.1 pg 27.0-32.0 [facility] Nucleated RBC/100 WBC (Bld) [Ratio] 5.7 % 0-5 [facility] MCHC Auto (RBC) [Mass/Vol]Or dered By: Dr. Chiu on 04-15-2022 MCHC (RBC) [Mass/Vol] 32.7 g/dL 32-36 [facility] Macrocytes detectionOrdered By: Dr. Chiu on 04-15-2022 Macrocytes Ql (Bld) 1+ [facility] Platelets bldOrdered By: Dr. Chiu on 04-15-2022 Platelets (Bld) [#/Vol] 212 10*3/uL 150-450 [facility] Serum or plasma cholesterol in HDL measurement (mass/volume)Ordered By: Dr. Chiu on 04-15-2022 Cholesterol in HDL [Mass/Vol] 39 mg/dL >40 [facility] Comment on above: The drugs N-Acetylcy steine and Metamizole may falsely depress this assay. Reference Range HDL <40 mg/dL Low HDL Cholesterol HDL >or= 60 mg/dL High HDL Cholesterol Serum or plasma cholesterol in VLDL measurement (mass/volume)Ordered By: Dr. Chiu on 04-15-2022 Cholesterol in VLDL [Mass/Vol] 32 mg/dL 5-40 [facility] Serum or plasma low density lipoprotein (LDL) cholesterol measurement (mass/volume)Ordered By: Dr. Chiu on 04-15-2022 Cholesterol in LDL [Mass/Vol] 119 mg/dL 0-130 [facility] Basophil percentageOrdered B y: Dr. Camacho on 04-14-2022 Bilirubin [Mass/Vol] 1.20 mg/dL 0.20-1.00 [facility] Comment on above: For patients on eltr ombopag therapy, use of Dimension [place] TBIL is not recommended. Protein [Mass/Vol] 6.5 g/dL 6.4-8.2 [facility] Blood manual differential co mment interpretation (narrative result)Ordered By: Dr. Camacho on 04-14-2022 Manual differential comment Piyush (Bld) [Interp] SCANNED [facility] Laboratory - Chemistry and C hemistry - challengeOrdered By: Dr. Camacho on 04-14-2022 ALP [Catalytic activity/Vol] 75 U/L 45-117 [facility] ALT [Catalytic activity/Vol] 46 U/L 16-61 [facility] Globulin (S) [Mass/Vol] 3.7 g/dL 2.2-4.2 [facility] No Panel InformationOrdered By: Dr. Camacho on 04-14-2022 Troponin I High Sensitivity 121 pg/mL 3.0-78.0 [facility] Comment on above: Critical Result(s) C alled at: 04:02:32 04/14/2022 by: CHERI Callahan RN ICU. Results read back by same. Please Note: New Test Units and Gender Specific Reference Ranges. For more information see Policy Stat Procedure [place] High Sensitivity Troponin (TNIH) and attachments. No Panel InformationOrdered By: ED PROVIDER on 04-14-2022 Troponin I High Sensitivity 133 pg/mL 3.0-78.0 [facility] Comment on above: Critical Result(s) C alled at: 00:45:24 04/14/2022 by: Mello KAUFFMAN RN (ED) Results read back by same. Please Note: New Test Units and Gender Specific Reference Ranges. For more information see Policy Stat Procedure [place] High Sensitivity Troponin (TNIH) and attachments. Serum or plasma albumin cory urement (mass/volume)Ordered By: Dr. Camacho on 04-14-2022 Albumin [Mass/Vol] 2.8 g/dL 3.2-5.0 [facility] Serum or plasma albumin/glob ulin mass ratioOrdered By: Dr. Camacho on 04-14-2022 Albumin/Globulin [Mass ratio] 0.8 {ratio} 0.9-2.4 [facility] Thin prep Papanicolaou smear with manual screeningOrdered By: Dr. Agyepong on 04-14-2022 Thin prep Papanicolaou smear with manual screening 37 U/L 15-37 [facility] Absolute lymphocyte countOrd ered By: ED PROVIDER on 04-13-2022 Lymphocytes Auto (Unsp spec) [#/Vol] 0.72 10*3/uL 0.83-4.51 [facility] Absolute lymphocyte countOrd ered By: Dr. Turner on 04-13-2022 Lymphocytes Auto (Unsp spec) [#/Vol] 0.85 10*3/uL 0.83-4.51 [facility] Basophil percentageOrdered B y: ED PROVIDER on 04-13-2022 Basophils/100 WBC (Bld) 0.4 % 0-1 [facility] Chloride [Moles/Vol] 111 mmol/L 98-107 [facility] Eosinophils/100 WBC (Bld) 0.0 % 0-5 [facility] Glucose [Mass/Vol] 125 mg/dL 74-106 [facility] Comment on above: Fasting Glucose resu lt from 100 to 125 mg/dL suggests IMPAIRED HOMEOSTASIS per A.D.A. criteria. Neutrophils (Bld) [#/Vol] 4.5 10*3/uL 2.0-7.7 [facility] Neutrophils/100 WBC (Bld) 79.4 % 47-70 [facility] Potassium [Moles/Vol] 3.7 mmol/L 3.5-5.1 [facility] Sodium [Moles/Vol] 143 mmol/L 136-145 [facility] WBC (Bld) [#/Vol] 5.7 10*3/uL 4.4-11.0 [facility] Basophil percentageOrdered B y: Dr. Turner on 04-13-2022 Basophils/100 WBC (Bld) 0.3 % 0-1 [facility] Bilirubin [Mass/Vol] 1.80 mg/dL 0.20-1.00 [facility] Comment on above: For patients on eltr ombopag therapy, use of Dimension [place] TBIL is not recommended. Chloride [Moles/Vol] 108 mmol/L 98-107 [facility] Eosinophils/100 WBC (Bld) 0.3 % 0-5 [facility] Glucose [Mass/Vol] 108 mg/dL 74-106 [facility] Comment on above: Fasting Glucose resu lt from 100 to 125 mg/dL suggests IMPAIRED HOMEOSTASIS per A.D.A. criteria. Neutrophils (Bld) [#/Vol] 5.0 10*3/uL 2.0-7.7 [facility] Neutrophils/100 WBC (Bld) 78.6 % 47-70 [facility] Potassium [Moles/Vol] 3.5 mmol/L 3.5-5.1 [facility] Protein [Mass/Vol] 7.4 g/dL 6.4-8.2 [facility] Sodium [Moles/Vol] 143 mmol/L 136-145 [facility] WBC (Bld) [#/Vol] 6.4 10*3/uL 4.4-11.0 [facility] Blood erythrocytes count (nu mber/volume)Ordered By: ED PROVIDER on 04-13-2022 RBC (Bld) [#/Vol] 4.03 10*6/uL 4.6-6.2 [facility] Blood erythrocytes count (nu mber/volume)Ordered By: Dr. Turner on 04-13-2022 RBC (Bld) [#/Vol] 4.35 10*6/uL 4.6-6.2 [facility] Blood hemoglobin measurement (mass/volume)Ordered By: ED PROVIDER on 04-13-2022 Hemoglobin (Bld) [Mass/Vol] 12.8 g/dL 13.0-16.5 [facility] Blood hemoglobin measurement (mass/volume)Ordered By: Dr. Turner on 04-13-2022 Hemoglobin (Bld) [Mass/Vol] 13.9 g/dL 13.0-16.5 [facility] Blood lymphocytes/100 leukoc ytesOrdered By: ED PROVIDER on 04-13-2022 Lymphocytes/100 WBC (Bld) 12.7 % 19-41 [facility] Blood lymphocytes/100 leukoc ytesOrdered By: Dr. Turner on 04-13-2022 Lymphocytes/100 WBC (Bld) 13.3 % 19-41 [facility] Blood manual differential co mment interpretation (narrative result)Ordered By: ED PROVIDER on 04-13-2022 Manual differential comment Piyush (Bld) [Interp] SCANNED [facility] Comment on above: 1+ [facility] Blood manual differential co mment interpretation (narrative result)Ordered By: Dr. Turner on 04-13-2022 Manual differential comment Piyush (Bld) [Interp] SCANNED [facility] Comment on above: 1+ [facility] Blood monocytes/100 leukocyt esOrdered By: ED PROVIDER on 04-13-2022 Monocytes/100 WBC (Bld) 7.1 % 0-10 [facility] Blood monocytes/100 leukocyt esOrdered By: Dr. Turner on 04-13-2022 Monocytes/100 WBC (Bld) 7.0 % 0-10 [facility] Blood platelet mean volumeOr dered By: ED PROVIDER on 04-13-2022 Platelet mean volume (Bld) [Entitic vol] 10.8 fL 6.2-12.0 [facility] Blood platelet mean volumeOr dered By: Dr. Turner on 04-13-2022 Platelet mean volume (Bld) [Entitic vol] 11.7 fL 6.2-12.0 [facility] Determination of erythrocyte mean corpuscular volume (MCV)Ordered By: ED PROVIDER on 04-13-2022 MCV (RBC) [Entitic vol] 94.8 fL 80-94 [facility] Determination of erythrocyte mean corpuscular volume (MCV)Ordered By: Dr. Turner on 04-13-2022 MCV (RBC) [Entitic vol] 97.2 fL 80-94 [facility] Hematocrit Auto (Bld) [Volum e fraction]Ordered By: ED PROVIDER on 04-13-2022 Hematocrit (Bld) [Volume fraction] 38.2 % 40-54 [facility] Hematocrit Auto (Bld) [Volum e fraction]Ordered By: Dr. Turner on 04-13-2022 Hematocrit (Bld) [Volume fraction] 42.3 % 40-54 [facility] INR in Blood by Coagulation assayOrdered By: Dr. Dunn on 04-13-2022 INR Coag (Bld) [Relative time] 1.9 {INR} [facility] Laboratory - Chemistry and C hemistry - challengeOrdered By: ED PROVIDER on 04-13-2022 CO2 [Moles/Vol] 25.0 mmol/L 21.0-32.0 [facility] Urea nitrogen/Creatinine [Mass ratio] 7.7 mg/mg 10- [facility] Laboratory - Chemistry and C hemistry - challengeOrdered By: Dr. Turner on 04-13-2022 Natriuretic peptide B (Bld) [Mass/Vol] 699.0 pg/mL 0-100 [facility] ALP [Catalytic activity/Vol] 83 U/L 45-117 [facility] ALT [Catalytic activity/Vol] 48 U/L 16-61 [facility] CO2 [Moles/Vol] 27.0 mmol/L 21.0-32.0 [facility] Globulin (S) [Mass/Vol] 4.0 g/dL 2.2-4.2 [facility] Urea nitrogen/Creatinine [Mass ratio] 7.3 mg/mg 10- [facility] Laboratory - CoagulationOrde red By: Dr. Dunn on 04-13-2022 PT Coag (PPP) [Time] 21.7 s 11.7-14.9 [facility] Laboratory - Hematology and Cell countsOrdered By: ED PROVIDER on 04-13-2022 Erythrocyte distribution width (RBC) [Entitic vol] 69.1 fL 35.1-43.9 [facility] Erythrocyte distribution width (RBC) [Ratio] 20.2 % 11.6-14.6 [facility] Immature granulocytes/100 WBC (Bld) 0.400 % 0.0-0.9 [facility] Comment on above: IG% - Immature Granu locytes (promyelocytes, myelocytes and metamyelocytes) > 1% indicates that a LEFT SHIFT is Present. MCH (RBC) [Entitic mass] 31.8 pg 27.0-32.0 [facility] Nucleated RBC/100 WBC (Bld) [Ratio] 1.8 % 0-5 [facility] Laboratory - Hematology and Cell countsOrdered By: Dr. Turner on 04-13-2022 Erythrocyte distribution width (RBC) [Entitic vol] 71.7 fL 35.1-43.9 [facility] Erythrocyte distribution width (RBC) [Ratio] 20.5 % 11.6-14.6 [facility] Immature granulocytes/100 WBC (Bld) 0.500 % 0.0-0.9 [facility] Comment on above: IG% - Immature Granu locytes (promyelocytes, myelocytes and metamyelocytes) > 1% indicates that a LEFT SHIFT is Present. MCH (RBC) [Entitic mass] 32.0 pg 27.0-32.0 [facility] Nucleated RBC/100 WBC (Bld) [Ratio] 1.1 % 0-5 [facility] MCHC Auto (RBC) [Mass/Vol]Or dered By: ED PROVIDER on 04-13-2022 MCHC (RBC) [Mass/Vol] 33.5 g/dL 32-36 [facility] MCHC Auto (RBC) [Mass/Vol]Or dered By: Dr. Turner on 04-13-2022 MCHC (RBC) [Mass/Vol] 32.9 g/dL 32-36 [facility] No Panel InformationOrdered By: ED PROVIDER on 04-13-2022 Estimated Creatinine Clearance Calc 44.21 ml/min [facility] Estimated GFR (MDRD) Amer 46 mL/min >60 [facility] Comment on above: GFR Calc Estimated GFR (MDRD) Non-Af Amer 38 mL/min >60 [facility] Comment on above: Non- GFR Calc No Panel InformationOrdered By: Dr. Turner on 04-13-2022 Estimated GFR (MDRD) [facility] Amer 46 mL/min >60 [facility] Comment on above: GFR Calc Estimated GFR (MDRD) Non-Af Amer 38 mL/min >60 [facility] Comment on above: Non- GFR Calc Troponin I High Sensitivity 118 pg/mL 3.0-78.0 [facility] Comment on above: Please Note: New [place] t Units and Gender Specific Reference Ranges. For more information see Policy Stat Procedure [place] High Sensitivity Troponin (TNIH) and attachments. Platelets bldOrdered By: ED PROVIDER on 04-13-2022 Platelets (Bld) [#/Vol] 197 10*3/uL 150-450 [facility] Platelets bldOrdered By: Dr. Turner on 04-13-2022 Platelets (Bld) [#/Vol] 222 10*3/uL 150-450 [facility] Serum or plasma albumin cory urement (mass/volume)Ordered By: Dr. Turner on 04-13-2022 Albumin [Mass/Vol] 3.4 g/dL 3.2-5.0 [facility] Serum or plasma albumin/glob ulin mass ratioOrdered By: Dr. Turner on 04-13-2022 Albumin/Globulin [Mass ratio] 0.8 {ratio} 0.9-2.4 [facility] Serum or plasma calcium cory urement (mass/volume)Ordered By: ED PROVIDER on 04-13-2022 Calcium [Mass/Vol] 9.0 mg/dL 8.5-10.1 [facility] Serum or plasma calcium cory urement (mass/volume)Ordered By: Dr. Turner on 04-13-2022 Calcium [Mass/Vol] 9.4 mg/dL 8.5-10.1 [facility] Serum or plasma creatinine m easurement (mass/volume)Ordered By: ED PROVIDER on 04-13-2022 Creatinine [Mass/Vol] 1.94 mg/dL 0.70-1.30 [facility] Comment on above: The validity of the calculated GFR & GFRAA in patients over 70 years has not been determined. Clinical correlation is essential. Serum or plasma creatinine m easurement (mass/volume)Ordered By: Dr. Turner on 04-13-2022 Creatinine [Mass/Vol] 1.93 mg/dL 0.70-1.30 [facility] Comment on above: The validity of the calculated GFR & GFRAA in patients over 70 years has not been determined. Clinical correlation is essential. Serum or plasma urea nitroge n measurement (mass/volume)Ordered By: ED PROVIDER on 04-13-2022 Urea nitrogen [Mass/Vol] 15 mg/dL 7- [facility] Serum or plasma urea nitroge n measurement (mass/volume)Ordered By: Dr. Turner on 04-13-2022 Urea nitrogen [Mass/Vol] 14 mg/dL 7- [facility] Thin prep Papanicolaou smear with manual screeningOrdered By: ED PROVIDER on 04-13-2022 Thin prep Papanicolaou smear with manual screening 7 5-15 [facility] Thin prep Papanicolaou smear with manual screeningOrdered By: Dr. Turner on 04-13-2022 Thin prep Papanicolaou smear with manual screening 41 U/L 15-37 [facility] Thin prep Papanicolaou smear with manual screening 8 5-15 [facility] CBC W Auto Differential pane l (Bld)on 04-09-2022 Basophils (Bld) [#/Vol] 10*3/uL Normal <0.11 [facility] Comment on above: Order Comment: Speci men Type: BLOOD SPECIMENOrdering Facility: [facility] Address: [address] [place] [address] Performed By: #### 5 7021-8 ####[facility] LABCLIA [id number] [place] [address] [place] Basophils/100 WBC (Bld) 0.3 % Normal [facility] Comment on above: Order Comment: Speci men Type: BLOOD SPECIMENOrdering Facility: [facility] Address: [address] [place] [address] Performed By: #### 5 7021-8 ####[facility] LABCLIA [id number] [place] [address] [place] Differential cell count method Nom (Bld) Auto Normal [facility] Comment on above: Order Comment: Speci men Type: BLOOD SPECIMENOrdering Facility: [facility] Address: [address] [place] [address] Performed By: #### 5 7021-8 ####[facility] LABCLIA [id number] [place] [address] [place] Eosinophils (Bld) [#/Vol] 0.04 10*3/uL Normal <0.46 [facility] Comment on above: Order Comment: Speci men Type: BLOOD SPECIMENOrdering Facility: [facility] Address: [address] [place] [address] Performed By: #### 5 7021-8 ####[facility] LABCLIA [id number] [place] [address] [place] Eosinophils/100 WBC (Bld) 0.7 % Normal [facility] Comment on above: Order Comment: Speci men Type: BLOOD SPECIMENOrdering Facility: [facility] Address: [address] [place] [address] Performed By: #### 5 7021-8 ####[facility] LABCLIA [id number] [address] OF [place] Erythrocyte distribution width (RBC) [Ratio] 19.2 % High 11.5-15.0 [facility] Comment on above: Order Comment: Speci men Type: BLOOD SPECIMENOrdering Facility: [facility] Address: [address] [place] [address] Performed By: #### 5 7021-8 ####[facility] LABCLIA [id number] [place] [address] [place] Hematocrit (Bld) [Volume fraction] 42.1 % Normal 39.0-51.0 [facility] Comment on above: Order Comment: Speci men Type: BLOOD SPECIMENOrdering Facility: [facility] Address: [address] [place] [address] Performed By: #### 5 7021-8 ####[facility] LABCLIA [id number] [place] [address] [place] Hemoglobin (Bld) [Mass/Vol] 14.5 g/dL Normal 13.0-17.0 [facility] Comment on above: Order Comment: Speci men Type: BLOOD SPECIMENOrdering Facility: [facility] Address: [address] [place] [address] Performed By: #### 5 7021-8 ####[facility] LABCLIA [id number] [place] [address] [place] Immature granulocytes (Bld) [#/Vol] 0.03 10*3/uL Normal <0.10 [facility] Comment on above: Order Comment: Speci men Type: BLOOD SPECIMENOrdering Facility: [facility] Address: [address] [place] [address] Performed By: #### 5 7021-8 ####[facility] LABCLIA [id number] [place] [address] [place] Immature granulocytes/100 WBC (Bld) 0.5 % Normal [facility] Comment on above: Order Comment: Speci men Type: BLOOD SPECIMENOrdering Facility: [facility] Address: [address] [place] [address] Performed By: #### 5 7021-8 ####[facility] LABCLIA [id number] [place] [address] [place] Lymphocytes (Bld) [#/Vol] 1.09 10*3/uL Normal 1.00-4.00 [facility] Comment on above: Order Comment: Speci men Type: BLOOD SPECIMENOrdering Facility: [facility] Address: [address] [place] [address] Performed By: #### 5 7021-8 ####[facility] LABCLIA [id number] [address] [place] Lymphocytes/100 WBC (Bld) 18.7 % Normal [facility] Comment on above: Order Comment: Speci men Type: BLOOD SPECIMENOrdering Facility: [facility] Address: [address] [place] [address] Performed By: #### 5 7021-8 ####[facility] LABCLIA [id number] [place] [address] [place] MCH (RBC) [Entitic mass] 32.2 pg Normal 26.0-34.0 [facility] Comment on above: Order Comment: Speci men Type: BLOOD SPECIMENOrdering Facility: [facility] Address: [address] [place] [address] Performed By: #### 5 7021-8 ####[facility] LABCLIA [id number] [address] [place] MCHC (RBC) [Mass/Vol] 34.4 g/dL Normal 30.5-36.0 [facility] Comment on above: Order Comment: Speci men Type: BLOOD SPECIMENOrdering Facility: [facility] Address: [address] Performed By: #### 5 7021-8 ####[facility] LABCLIA [id number] [place] [address] [place] MCV (RBC) [Entitic vol] 93.3 fL Normal 80.0-100.0 [facility] Comment on above: Order Comment: Speci men Type: BLOOD SPECIMENOrdering Facility: [facility] Address: [address] [place], [place] [address] Performed By: #### 5 7021-8 ####[facility] LABCLIA [id number] [place] [address] [place] Monocytes (Bld) [#/Vol] 0.45 10*3/uL Normal <0.87 [facility] Comment on above: Order Comment: Speci men Type: BLOOD SPECIMENOrdering Facility: [facility] Address: [address] [place] [address] Performed By: #### 5 7021-8 ####[facility] LABCLIA [id number] [place] [address] [place] Monocytes/100 WBC (Bld) 7.7 % Normal [facility] Comment on above: Order Comment: Speci men Type: BLOOD SPECIMENOrdering Facility: [facility] Address: [address] [place] [address] Performed By: #### 5 7021-8 ####[facility] LABCLIA [id number] [place] [address] [place] Neutrophils (Bld) [#/Vol] 4.20 10*3/uL Normal 1.45-7.50 [facility] Comment on above: Order Comment: Speci men Type: BLOOD SPECIMENOrdering Facility: [facility] Address: [address] [place] [address] Performed By: #### 5 7021-8 ####[facility] LABCLIA [id number] [place] [address] [place] Neutrophils/100 WBC (Bld) 72.1 % Normal [facility] Comment on above: Order Comment: Speci men Type: BLOOD SPECIMENOrdering Facility: [facility] Address: [address] [place] [address] Performed By: #### 5 7021-8 ####[facility] LABCLIA [id number] [facility] [address] [place] [address] [place] Platelet mean volume (Bld) [Entitic vol] 10.4 fL Normal 9.0-12.7 [facility] Comment on above: Order Comment: Speci men Type: BLOOD SPECIMENOrdering Facility: [facility] Address: [address] [place] [address] Performed By: #### 5 7021-8 ####[facility] LABCLIA [id number] [place] [address] [place] Platelets (Bld) [#/Vol] 219 10*3/uL Normal 150-400 [facility] Comment on above: Order Comment: Speci men Type: BLOOD SPECIMENOrdering Facility: [facility] Address: [address] [place], [place] [address] Performed By: #### 5 7021-8 ####[facility] LABCLIA [id number] [place] [address] [place] RBC (Bld) [#/Vol] 4.51 10*6/uL Normal 4.20-6.00 [facility] Comment on above: Order Comment: Speci men Type: BLOOD SPECIMENOrdering Facility: [facility] Address: [address] [place], [place] [address] Performed By: #### 5 7021-8 ####[facility] LABCLIA [id number] [facility] [address] [place] [address] [place] WBC (Bld) [#/Vol] 5.83 10*3/uL Normal 3.70-11.00 [facility] Comment on above: Order Comment: Speci men Type: BLOOD SPECIMENOrdering Facility: [facility] Address: [address] [place] [address], [place] [address] Performed By: #### 5 7021-8 ####[facility] LABCLIA [id number] [address] [place] CNOVSPon 04-09-2022 CNOVSP Visit (SP) Office ([facility]) ----- YEFRI YANEZ ([id number]) 1965 M [facility] Date Time Provider Department 04/09/22 11:00 AM HAYLEE WILBURN [facility] During your visit today, we recorded the following information about you: Temperature Pulse Respiration Blood pressure 98.1 degrees 116/minute 16/minute 163/86 Weight 124.3 kg Haylee Wilburn MD 04/09/2022 4:21 PM Signed [facility] [place] Progress Note SERVICE DATE: April 09, 2022 [...] started treatment with cabo + nivo on [facility] 1820 Trial on 08/08/2021 at [facility]. He has baseline HTN and developed worsening HTN after starting treatment. His cabo was held on 08/18/2021, resumed on 09/11/2021. The Nivo was held on 09/11/21 due to pneumonitis, and prednisone 60 mg daily was started and tapered off within about one month. Due to insurance change, he was taken off the trial and referred to [facility] Oncology. All treatments were supposed to [...] radical nephrectomy by Dr. Aravind Hernandez at [facility] in [facility] on 02/06/2022. PATHOLOGY: -Renal cell carcinoma, clear-cell type, 5.3 x 3.0 x 2.7 cm, ISUP nuclear grade 3. -Carcinoma invades renal vein and lurdes-nephritic adipose tissue. -Margins of resection are negative for carcinoma. -Lymphovascular invasion not identified. -Regional lymph nodes not submitted. -[id number]. 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 He denies pain in the chest wall [...] ferrous sulf (more content not included)... Normal [facility] Comprehensive metabolic 2000 panelon 04-09-2022 Albumin [Mass/Vol] 3.5 g/dL Normal 3.2-5.0 [facility] Comment on above: Order Comment: Speci men Type: BLOOD SPECIMENOrdering Facility: [facility] Address: [place] [address] Performed By: #### 2 4323-8, 3016-3 ####[facility] LABORATORYCLIA [id number] [place] [address] [place] ALP [Catalytic activity/Vol] 86 U/L Normal 45-117 [facility] Comment on above: Order Comment: Speci men Type: BLOOD SPECIMENOrdering Facility: [facility] Address: [address] [place] [address] Performed By: #### 2 4323-8, 6-3 ####[facility] LABORATORYCLIA [id number] [place] [address] [place] ALT [Catalytic activity/Vol] 45 U/L Normal 13-61 [facility] Comment on above: Order Comment: Speci men Type: BLOOD SPECIMENOrdering Facility: [facility] Address: [address] [address] Result Comment: Resu lts may be falsely depressed after the administration of Sulfasalazine and/or Sulfapyridine. Performed By: #### 2 4323-8, 3015-3 ####[facility] LABORATORYCLIA [id number] [address] STATES OF [facility] Anion gap [Moles/Vol] 6 mmol/L Normal 5-16 [facility] Comment on above: Order Comment: Speci men Type: BLOOD SPECIMENOrdering Facility: [facility] Address: [address] [place] [address] Performed By: #### 2 4323-8, 3015-3 ####[facility] LABORATORYCLIA [id number] [address] [place] AST [Catalytic activity/Vol] 40 U/L High 8-34 [facility] Comment on above: Order Comment: Speci men Type: BLOOD SPECIMENOrdering Facility: [facility] Address: [address] [place] [address] Result Comment: Resu lts may be falsely depressed after the administration of Sulfasalazine and/or Sulfapyridine. Performed By: #### 2 4323-8, 6-3 ####[facility] LABORATORYCLIA [id number] [place] [id number] [place] Bilirubin [Mass/Vol] 0.5 mg/dL Normal 0.2-1.0 [facility] Comment on above: Order Comment: Speci men Type: BLOOD SPECIMENOrdering Facility: [facility] Address: [address] [address] Performed By: #### 2 4323-8, 6-3 ####[facility] LABORATORYCLIA [id number] [place] [address] [place] Calcium [Mass/Vol] 9.5 mg/dL Normal 8.5-10.5 [facility] Comment on above: Order Comment: Speci men Type: BLOOD SPECIMENOrdering Facility: [facility] Address: [address] [place] [address] Performed By: #### 2 4323-8, 3015-3 ####[facility] LABORATORYCLIA [id number] [place] [address] [place] Chloride [Moles/Vol] 106 mmol/L Normal 98-107 [facility] Comment on above: Order Comment: Speci men Type: BLOOD SPECIMENOrdering Facility: [facility] Address: [address] [place] [address] Performed By: #### 2 4323-8, 3015-3 ####[facility] LABORATORYCLIA [id number] [place] [address] [place] CO2 [Moles/Vol] 30 mmol/L Normal 21-32 [facility] Comment on above: Order Comment: Speci men Type: BLOOD SPECIMENOrdering Facility: [facility] Address: [address] [place] [address] Performed By: #### 2 4323-8, 3015-3 ####[facility] LABORATORYCLIA [id number] [place] [address] [place] Creatinine [Mass/Vol] 1.57 mg/dL High 0.50-1.40 [facility] Comment on above: Order Comment: Speci men Type: BLOOD SPECIMENOrdering Facility: [facility] Address: [address] [place] [address] Result Comment: Hyun ents receiving either N-Acetylcysteine (NAC) or Metamizole prior to venipuncture, may have falsely depressed results. Performed By: #### 2 4323-8, 3015-3 ####[facility] LABORATORYCLIA [id number] [address] [place] ESTIMATED GLOMERULAR FILTRATION RATE 51 mL/min/1.73m??? Low >=60 [facility] Comment on above: Order Comment: Aaliyah paige Type: BLOOD SPECIMENOrdering Facility: [facility] Address: [address] [place] [address] Result Comment: Laurita mated Glomerular Filtration Rate [...] GFR. Performed By: #### 2 4323-8, 3015-3 ####[facility] LABORATORYCLIA [id number] [address] [place] Glucose [Mass/Vol] 132 mg/dL High 70-100 [facility] Comment on above: Order Comment: Aaliyah gibson Type: BLOOD SPECIMENOrdering Facility: [facility] Address: [address] [place] [address] Result Comment: The [place] Diabetes Association (ADA) provides guidance for cutoff [...] Standards of Medical Care in Diabetes 2016, [place] [employer] Association. Diabetes Care. 2016.39(Suppl 1). Results may be falsely elevated after the administration of Sulfapyridine. Results may be falsely depressed after the administration of Sulfasalazine. Performed By: #### 2 43238, 3016-3 ####[facility] LABORATORYCLIA [id number] [place] [address] [place] Potassium [Moles/Vol] 3.7 mmol/L Normal 3.5-5.1 [facility] Comment on above: Order Comment: Speci men Type: BLOOD SPECIMENOrdering Facility: [facility] Address: [address] [place] [address] Performed By: #### 2 4323-8, 3 ####[facility] LABORATORYCLIA [id number] [place] [address] [place] Protein [Mass/Vol] 6.7 g/dL Normal 6.0-8.5 [facility] Comment on above: Order Comment: Speci men Type: BLOOD SPECIMENOrdering Facility: [facility] Address: [address] [place] [address] Performed By: #### 2 4323-8, 3015-05 ####[facility] LABORATORYCLIA [id number] [place] [address] [place] Sodium [Moles/Vol] 142 mmol/L Normal 136-145 [facility] Comment on above: Order Comment: Speci men Type: BLOOD SPECIMENOrdering Facility: [facility] Address: [address] [place] [address] Performed By: #### 2 4323-8, 3 ####[facility] LABORATORYCLIA [id number] [place] [address] [place] Urea nitrogen [Mass/Vol] 17 mg/dL Normal 7-26 [facility] Comment on above: Order Comment: Speci men Type: BLOOD SPECIMENOrdering Facility: [facility] Address: [address] [place] [address] Performed By: #### 2 4323-8, 3 ####[facility] LABORATORYCLIA [id number] [place] [address] [place] TSH SerPl-aCncon 04-09-2022 TSH Qn 2.848 m[IU]/L Normal 0.358-3.74 0 [facility] Comment on above: Order Comment: Speci men Type: BLOOD SPECIMENOrdering Facility: [facility] Address: [address], [place] [address] Result Comment: 3rd generation ultra sensitive TSH. Performed By: #### 2 4323-8, 3016-3 ####[facility] LABORATORYCLIA [id number] [place] [address] [place] Office Visit (Urology)on [...] between urology, medical oncology, radiation oncology at [facility] was local therapy to metastatic sites and cytoreductive nephrectomy. 12/08/2021-echo with EF 35%, LV and RV enlargement and hypokinesis 12/26/2021-patient completed radiation to chest wall and L4 lesion Patient has remained on cabo Patient was scheduled for nephrectomy with Dr. Adriana Hodge, due to insurance issues patient could not be operated on at [facility], [place]. 01/19/2022-patient scheduled for laparoscopic nephrectomy 02/0301/20/2022-patient presented to [facility] with shortness of breath 01/27/2022-patient presented to [facility] with persistence of subjective dyspnea, expiratory wheezing 01/29/2022-patient represented to [facility] ED with chest tightness and shortness of [...] today -Patient also follows with Dr. Turner [facility], sending records -Follow-up CT scans per Dr. Wilburn -Labs with Dr. Wilburn as well, renal function was good on discharge from hospital -Follow-up with me in 3 months Chief Complaint Metastatic kidney cancer History of Present [id number] male referred to me for cytoreductive nephrectomy [...] between urology, medical oncology, radiation oncology at [facility] was local therapy to metastatic sites and cytoreductive nephrectomy. 12/08/2021-echo with EF 35%, LV and RV enlargement and hypokinesis 12/26/2021-patient completed radiation to chest wall and L4 lesion Patient has remained on cabo Patient was scheduled for nephrectomy with Dr. Adriana Hodge, due to insurance issues patient could not be operated on at [facility], [place]. 01/19/2022-patient scheduled for laparoscopic nephrectomy 02/0301/20/2022-patient presented to [facility] with shortness of breath 01/27/2022-patient presented to [facility] with persistence of subjective dyspnea, expiratory wheezing 01/29/2022-patient represented to [facility] ED with chest tightness and shortness of breath. Diagnosed with CHF and pneumonia. He was prescribed cefdinir 300 mg p.o. twice daily x7 days, Lasix 40 mg daily p.o. for 14 days. 02/02/2022-canceled nephrectomy for 02/03. Called patient to discuss, subjectively feels back to baseline follow (more content not included)... Normal [facility] CNPNon [facility] ----- YEFRI YANEZ ([id number]) 1965 M [facility] Date Time Provider Department 04/02/22 AMERICA SCHWARTZ [facility] During your visit today, we recorded [...] by this patient by: SPOUSE Safia Carr, [facility] Problem List As Of Date [...] Encounter Status:Closed by AMERICA SCHWARTZ on 04/02/22 [facility] CNPN Telephone ([facility]) ----- YEFRI YANEZ ([id number]) 1965 M [facility] Date Time Provider Department 04/02/22 HAYLEE WILBURN [facility] During your visit today, we recorded [...] by this patient by: SPOUSE Safia Carr, [facility] Problem List As Of Date [...] Encounter Status:Closed by DONAVON EASTMAN on 04/02/[address] [facility] [address] ABD/PEL W IVCONon 023 CT ABD/PEL W IVCON * * *Final Report* * * DATE OF EXAM: Mar 26 2022 10:14AM [facility] 0530 - CT ABD/PEL W IVCON / PROCEDURE REASON: Renal cell carcinoma of right kidney (HCC) * * * * Physician Interpretation * * * * EXAMINATION: CT ABDOMEN AND PELVIS WITH IV CONTRAST CLINICAL HISTORY: Renal cell carcinoma of the right kidney. Status post interval robotic right radical nephrectomy at [facility]. TECHNIQUE: CT of the abdomen and pelvis [...] chest CT performed will be reported separately. Special Education Coordinator (topogram) images: No additional findings. IMPRESSION: Interval right nephrectomy with change in the nephrectomy bed favored to be postoperative. No definite recurrence. Decrease in size of lytic metastasis centered in the posterior elements of L4. No new abdominopelvic metastasis. Stable aortic and bilateral common iliac artery aneurysms. 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 Special Education Coordinator (topogram) images: No additional findings. IMPRESSION: New small patchy infiltrates in the lateral right middle and lower lobes. Interval decrease in size right sixth rib expansile metastasis. Stable 1.3 cm right paratracheal lymph node. No new lymphadenopathy. Atherosclerotic calcification of the aorta and coronary arteries. Ectasia of the ascending thoracic aorta. 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: [facility] Transcribe Date/Time: Mar 29 2022 12:00P Dictated by : YEFRI MORRIS MD This examination was interpreted and the report reviewed and electronically signed by: YEFRI MORRIS MD on Mar 29 2022 10:12PM EST [id number] [facility] Dougie 03-[facility]-2022 [facility] ----- YEFRI YANEZ ([id number]) 1965 M [facility] Date Time Provider Department 03/25/22 HAYLEE WILBURN [facility] During your visit today, we recorded the following information about you: Tania Parekh RN 03/25/2022 9:12 AM Signed Patient called stating his insurance is not approved for our office and that Dr. Wilburn needs to place a Referral for [facility]. I reminded him that last week he called me telling me that his insurance is making him go to [facility] for the scans and not [place] and do not understand how he could [...] Fully Assessed Reason for Visit: Appointment [186] Hat Renovator - Other [3602] Prescriptions as of 03/25/2022 [...] by this patient by: SPOUSE Safia Carr, [facility] Problem List As Of Date [...] Encounter Status:Closed by TANIA PAREKH on 03/25/22 [facility] CNPN Telephone ([facility]) ----- YEFRI YANEZ ([id number]) 1965 M [facility] Date Time Provider Department 03/25/22 HAYLEE WILBURN [facility] During your visit today, we recorded the following information about you: Venita Pollock 03/25/2022 9:23 AM Signed Per chat from RN TLP, yesica pt visit and possible tx from today to 04/02. Pt keeps calling to say that he is not apporved to be seen here and his insurance told him to go to [place]. I have discussed several times with pt [...] by this patient by: SPOUSE Safia Carr, [facility] Problem List As Of Date [...] Encounter Status:Closed by VENITA POLLOCK on 03/25/22 [facility] NM BONE WHOLE BODYon 023 NM BONE [...] right anterior sixth rib and L4 vertebra. 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: PSCB Transcribe Date/Time: Mar 23 2022 12:12P Dictated by : NASREEN QUINTANA MD This examination was interpreted and the report reviewed and electronically signed by: NASREEN QUINTANA MD on Mar 23 2022 12:18PM EST [id number] [facility] CNPN Telephone ([facility]) ----- YEFRI YANEZ ([id number]) 1965 M [facility] Date Time Provider Department 03/12/22 AMERICA SCHWARTZ [facility] During your visit today, we recorded the following information about you: Octavio Schwartz RN 03/12/2022 11:04 AM Signed LMOM with the appointment dates, times and location of upcoming bone scan and CT scans. Bone scan 03/23/22 at 830 am here at the [facility]. CT scans at [place] [facility] 03/24/22 at 1pm. America Schwartz [...] by this patient by: SPOUSE Safia Carr, [facility] Problem List As Of Date [...] Encounter Status:Closed by AMERICA SCHWARTZ on 03/16/22 [facility] CNOVSPon 03-11-2022 CNOVSP Visit (SP) Office ([facility]) ----- YEFRI YANEZ ([id number]) 1965 M [facility] Date Time Provider Department 03/11/22 1:00 PM HAYLEE WILBURN [facility] During your visit today, we recorded the following information about you: Pulse Respiration Blood pressure Weight 78/minute 16/minute 134/84 118.8 kg Haylee Wilburn MD 03/11/2022 4:16 PM Signed [facility] Progress Note SERVICE DATE: March 11, [...] started treatment with cabo + nivo on [facility] 1820 Trial on 08/08/2021 at [facility]. He has baseline HTN and developed worsening HTN after starting treatment. His cabo was held on 08/18/2021, resumed on 09/11/2021. The Nivo was held on 09/11/21 due to pneumonitis, and prednisone 60 mg daily was started and tapered off within about one month. Due to insurance change, he was taken off the trial and referred to [facility] to resume the treatment. He was scheduled to have nephrectomy on 11/04/21, but delayed due to his back pain. He underwent palliative XRT to L3-L5 (2,000 cGy in 5 fx), completed 12/26/21). He underwent da Farzad assisted robotic right radical nephrectomy at [facility] in [facility]. I do not have the official pathology report yet. We have made multiple requests to [facility] for the surgical pathology, to no [...] mg tablet (more content not included)... Normal [facility] ECHO LIMITEDon 02-26-2022 CONCLUSIONS: - Exam [...] * * * Final * * * [facility]ARDI[facility] Echocardiography Report: [facility] Date of service: 02/26/2022 8:14:13 AM Ordering physician: SAYRA TELLO Indication: Cardiomyopathy Technologist: Sybil Craft [facility] Interpreting physician: Sayra Tello MD PATIENT: Name: YEFIR YANEZ : 1965 Age: 57 years Gender: [...] valve regurgitation. PERICARDIUM The pericardium is normal. [facility] ECHO LIMITED Echocardiography Rep ort: [facility] Date of service: 02/26/2022 8:14:13 AM [...] * * * Final * * * [employer] [facility] Image : [id number] [facility] Dougie 02-19-2022 SERGEY Telephone ([employer] [facility]) ----- YEFRI YANEZ ([id number]) 1965 M [facility] Date Time Provider Department 02/19/22 SAYRA [...] [I50.9] Order(s):BASIC METABOLIC PNL [SQBMP] Order #: [id number] FUTURE Prescriptions as of 02/22/2022 - torsemide [...] by this patient by: SPOUSE Safia Carr, [facility] Problem List As Of Date [...] Encounter Status:Closed by SAYRA TELLO on 02/22/22 [facility]2022 [facility] Telephone (CAR[facility]) ----- YEFRI YANEZ ([id number]) 1965 [facility] Date Time Provider Department 02/18/22 SAYRA [...] by this patient by: SPOUSE Safia Carr, [facility] Problem List As Of Date [...] Status:Closed by RACHEL TREVINO on 02/18/22 Normal [facility] CBC W Auto Differential pane l (Bld)on 02-17-2022 Basophils (Bld) [#/Vol] 10*3/uL Normal <0.11 [facility] Comment on above: Order Comment: Speci men Type: BLOOD SPECIMENOrdering Facility: [facility] Address: [address] [place] [id number] Performed By: #### 5 7021-8 ####[facility] LABCLIA [id number] [address] Basophils/100 WBC (Bld) 0.2 % Normal [facility] Comment on above: Order Comment: Speci men Type: BLOOD SPECIMENOrdering Facility: [facility] Address: [address] [place] [address] Performed By: #### 5 7021-8 ####[facility] LABCLIA [id number] [facility] [address] [place] [address] OF [place] Differential cell count method Nom (Bld) Auto Normal [facility] Comment on above: Order Comment: Speci men Type: BLOOD SPECIMENOrdering Facility: [facility] Address: [address] [place] [address] Performed By: #### 5 7021-8 ####[facility] LABCLIA [id number] [address] [place] Eosinophils (Bld) [#/Vol] 0.04 10*3/uL Normal <0.46 [facility] Comment on above: Order Comment: Speci men Type: BLOOD SPECIMENOrdering Facility: [facility] Address: [address] [place] [address] Performed By: #### 5 7021-8 ####[facility] LABCLIA [id number] [address] OF [place] Eosinophils/100 WBC (Bld) 1.0 % Normal [facility] Comment on above: Order Comment: Speci men Type: BLOOD SPECIMENOrdering Facility: [facility] Address: [address] [place] [address] Performed By: #### 5 7021-8 ####[facility] LABCLIA [id number] [address] [place] Erythrocyte distribution width (RBC) [Ratio] 17.0 % High 11.5-15.0 [facility] Comment on above: Order Comment: Speci men Type: BLOOD SPECIMENOrdering Facility: [facility] Address: [address] [place] [address] Performed By: #### 5 7021-8 ####[facility] LABCLIA [id number] [place] [address] [place] Hematocrit (Bld) [Volume fraction] 47.4 % Normal 39.0-51.0 [facility] Comment on above: Order Comment: Speci men Type: BLOOD SPECIMENOrdering Facility: [facility] Address: [address] [place] [address] Performed By: #### 5 7021-8 ####[facility] LABCLIA [id number] [place] [address] [place] Hemoglobin (Bld) [Mass/Vol] 15.7 g/dL Normal 13.0-17.0 [facility] Comment on above: Order Comment: Speci men Type: BLOOD SPECIMENOrdering Facility: [facility] Address: [address] [place] [address] Performed By: #### 5 7021-8 ####[facility] LABCLIA [id number] [place] [address] [place] Immature granulocytes (Bld) [#/Vol] 10*3/uL Normal <0.10 [facility] Comment on above: Order Comment: Speci men Type: BLOOD SPECIMENOrdering Facility: [facility] Address: [address] [place] [address] Performed By: #### 5 7021-8 ####[facility] LABCLIA [id number] [place] [address] [place] Immature granulocytes/100 WBC (Bld) 0.5 % Normal [facility] Comment on above: Order Comment: Speci men Type: BLOOD SPECIMENOrdering Facility: [facility] Address: [address] [place] [address] Performed By: #### 5 7021-8 ####[facility] LABCLIA [id number] [place] [address] [place] Lymphocytes (Bld) [#/Vol] 0.75 10*3/uL Low 1.00-4.00 [facility] Comment on above: Order Comment: Speci men Type: BLOOD SPECIMENOrdering Facility: [facility] Address: [address] [place] [address] Performed By: #### 5 7021-8 ####[facility] LABCLIA [id number] [address] OF [facility] Lymphocytes/100 WBC (Bld) 18.2 % Normal [facility] Comment on above: Order Comment: Speci men Type: BLOOD SPECIMENOrdering Facility: [facility] Address: [address] [place] [address] Performed By: #### 5 7021-8 ####[facility] LABCLIA [id number] [place] [address] [place] MCH (RBC) [Entitic mass] 30.7 pg Normal 26.0-34.0 [facility] Comment on above: Order Comment: Speci men Type: BLOOD SPECIMENOrdering Facility: [facility] Address: [address] [place] [address] Performed By: #### 5 7021-8 ####[facility] LABCLIA [id number] [place] [address] [place] MCHC (RBC) [Mass/Vol] 33.1 g/dL Normal 30.5-36.0 [facility] Comment on above: Order Comment: Speci men Type: BLOOD SPECIMENOrdering Facility: [facility] Address: [address] [place], [place] [id number] Performed By: #### 5 7021-8 ####[facility] LABCLIA [id number] [place] [address] [place] MCV (RBC) [Entitic vol] 92.8 fL Normal 80.0-100.0 [facility] Comment on above: Order Comment: Speci men Type: BLOOD SPECIMENOrdering Facility: [facility] Address: [address] [place] [address] Performed By: #### 5 7021-8 ####[facility] LABCLIA [id number] [place] [address] [place] Monocytes (Bld) [#/Vol] 0.30 10*3/uL Normal <0.87 [facility] Comment on above: Order Comment: Speci men Type: BLOOD SPECIMENOrdering Facility: [facility] Address: [address] [place] [address] Performed By: #### 5 7021-8 ####[facility] LABCLIA [id number] [place] [address] [place] Monocytes/100 WBC (Bld) 7.3 % Normal [facility] Comment on above: Order Comment: Speci men Type: BLOOD SPECIMENOrdering Facility: [facility] Address: [address] [place] [address] Performed By: #### 5 7021-8 ####[facility] LABCLIA [id number] [place] [address] [place] Neutrophils (Bld) [#/Vol] 3.00 10*3/uL Normal 1.45-7.50 [facility] Comment on above: Order Comment: Speci men Type: BLOOD SPECIMENOrdering Facility: [facility] Address: [address] [place] [address] Performed By: #### 5 7021-8 ####[facility] LABCLIA [id number] [place] [address] [place] Neutrophils/100 WBC (Bld) 72.8 % Normal [facility] Comment on above: Order Comment: Speci men Type: BLOOD SPECIMENOrdering Facility: [facility] Address: [address] [place] [address] Performed By: #### 5 7021-8 ####[facility] LABCLIA [id number] [place] [address] [place] Platelet mean volume (Bld) [Entitic vol] 10.0 fL Normal 9.0-12.7 [facility] Comment on above: Order Comment: Speci men Type: BLOOD SPECIMENOrdering Facility: [facility] Address: [address] [address] Performed By: #### 5 7021-8 ####[facility] LABCLIA [id number] OF [place] Platelets (Bld) [#/Vol] 359 10*3/uL Normal 150-400 [facility] Comment on above: Order Comment: Speci men Type: BLOOD SPECIMENOrdering Facility: [facility] Address: [address] [place] [address] Performed By: #### 5 7021-8 ####[facility] LABCLIA [id number] [place] [address] [place] RBC (Bld) [#/Vol] 5.11 10*6/uL Normal 4.20-6.00 [facility] Comment on above: Order Comment: Speci men Type: BLOOD SPECIMENOrdering Facility: [facility] Address: [address] [place] [address] Performed By: #### 5 7021-8 ####[facility] LABCLIA [id number] [place] [address] [place] WBC (Bld) [#/Vol] 4.12 10*3/uL Normal 3.70-11.00 [facility] Comment on above: Order Comment: Speci men Type: BLOOD SPECIMENOrdering Facility: [facility] Address: [address] [place] [address] Performed By: #### 5 7021-8 ####[facility] LABCLIA [id number] [place] [address] [place] Basophils (Bld) [#/Vol] <0.11 k/uL [facility] Basophils/100 WBC (Bld) 0.2 % [facility] Differential cell count method Nom (Bld) Auto [facility] Eosinophils (Bld) [#/Vol] 0.04 10*3/uL <0.46 k/uL [facility] Eosinophils/100 WBC (Bld) 1.0 % [facility] Erythrocyte distribution width (RBC) [Ratio] 17.0 % High 11.5 - 15.0 % [facility] Hematocrit (Bld) [Volume fraction] 47.4 % 39.0 - 51.0 % [facility] Hemoglobin (Bld) [Mass/Vol] 15.7 g/dL 13.0 - 17.0 g/dL [facility] Immature granulocytes (Bld) [#/Vol] <0.10 k/uL [facility] Immature granulocytes/100 WBC (Bld) 0.5 % [facility] Lymphocytes (Bld) [#/Vol] 0.75 10*3/uL Low 1.00 - 4.00 k/uL [facility] Lymphocytes/100 WBC (Bld) 18.2 % [facility] MCH (RBC) [Entitic mass] 30.7 pg 26.0 - 34.0 pg [facility] MCHC (RBC) [Mass/Vol] 33.1 g/dL 30.5 - 36.0 g/dL [facility] MCV (RBC) [Entitic vol] 92.8 fL 80.0 - 100.0 fL [facility] Monocytes (Bld) [#/Vol] 0.30 10*3/uL <0.87 k/uL [facility] Monocytes/100 WBC (Bld) 7.3 % [facility] Neutrophils (Bld) [#/Vol] 3.00 10*3/uL 1.45 - 7.50 k/uL [facility] Neutrophils/100 WBC (Bld) 72.8 % [facility] Platelet mean volume (Bld) [Entitic vol] 10.0 fL 9.0 - 12.7 fL [facility] Platelets (Bld) [#/Vol] 359 10*3/uL 150 - 400 k/uL [facility] RBC (Bld) [#/Vol] 5.11 10*6/uL 4.20 - 6.00 m/uL [facility] WBC (Bld) [#/Vol] 4.12 10*3/uL 3.70 - 11.00 k/uL [facility] CNOVSPon 02-17-2022 CNOVSP Visit (SP) Office ([facility]) ----- YEFRI YANEZ ([id number]) 1965 M [facility] Date Time Provider Department 02/17/22 11:30 AM HAYLEE WILBURN [facility] During your visit today, we recorded the following information about you: Pulse Respiration Blood pressure Weight 72/minute 16/minute 132/74 114.8 kg Haylee Wilburn MD 02/17/2022 5:25 PM Signed [facility] Progress Note SERVICE DATE: February 17, [...] started treatment with cabo + nivo on [facility] 1820 Trial on 08/08/2021 at [facility]. He has baseline HTN and developed worsening HTN after starting treatment. His cabo was held on 08/18/2021, resumed on 09/11/2021. The Nivo was held on 09/11/21 due to pneumonitis, and prednisone 60 mg daily was started and tapered off within about one month. Due to insurance change, he was taken off the trial and referred to [facility] to resume the treatment. He was scheduled to have nephrectomy on 11/04/21, but delayed due to his back pain and palliative XRT to L3-L5 (2,000 cGy in 5 fx, completed 12/26/21). His back pain has resolved. He underwent da Farzad assisted robotic right radical nephrectomy at [facility] in [facility]. I do not have the [...] and diarrhe (more content not included)... Normal [facility] Comprehensive metabolic 2000 panelon 02-17-2022 Albumin [Mass/Vol] 3.5 g/dL Normal 3.2-5.0 [facility] Comment on above: Order Comment: Speci men Type: BLOOD SPECIMENOrdering Facility: [facility] Address: [address] [place] [address] Performed By: #### 2 4323-8 ####[facility] LABORATORYCLIA [id number] [place] [address] [place] ALP [Catalytic activity/Vol] 107 U/L Normal 45-117 [facility] Comment on above: Order Comment: Speci men Type: BLOOD SPECIMENOrdering Facility: [facility] Address: [address] [address] Performed By: #### 2 4323-8 ####[facility] LABORATORYCLIA [id number] [place] [address] [place] ALT [Catalytic activity/Vol] 102 U/L High 13-61 [facility] Comment on above: Order Comment: Speci men Type: BLOOD SPECIMENOrdering Facility: [facility] Address: [address] [address] Result Comment: Resu lts may be falsely depressed after the administration of Sulfasalazine and/or Sulfapyridine. Performed By: #### 2 4323-8 ####[facility] LABORATORYCLIA [id number] [place] [address] [place] Anion gap [Moles/Vol] 9 mmol/L Normal 5-16 [facility] Comment on above: Order Comment: Speci men Type: BLOOD SPECIMENOrdering Facility: [facility] Address: [address] [address] Performed By: #### 2 4323-8 ####[facility] LABORATORYCLIA [id number] [place] [address] [place] AST [Catalytic activity/Vol] 62 U/L High 8-34 [facility] Comment on above: Order Comment: Speci men Type: BLOOD SPECIMENOrdering Facility: [facility] Address: [address] [address] Result Comment: Resu lts may be falsely depressed after the administration of Sulfasalazine and/or Sulfapyridine. Performed By: #### 2 4323-8 ####[facility] LABORATORYCLIA [id number] [place] [address] [place] Bilirubin [Mass/Vol] 0.4 mg/dL Normal 0.2-1.0 [facility] Comment on above: Order Comment: Speci men Type: BLOOD SPECIMENOrdering Facility: [facility] Address: [address] [address] Performed By: #### 2 4323-8 ####[facility] LABORATORYCLIA [id number] [place] [address] [place] Calcium [Mass/Vol] 9.5 mg/dL Normal 8.5-10.5 [facility] Comment on above: Order Comment: Speci men Type: BLOOD SPECIMENOrdering Facility: [facility] Address: [address] [address] Performed By: #### 2 4323-8 ####[facility] LABORATORYCLIA [id number] [place] [address] [place] Chloride [Moles/Vol] 103 mmol/L Normal 98-107 [facility] Comment on above: Order Comment: Speci men Type: BLOOD SPECIMENOrdering Facility: [facility] Address: [address] [place] [address] Performed By: #### 2 4323-8 ####[facility] LABORATORYCLIA [id number] [place] [address] [place] CO2 [Moles/Vol] 27 mmol/L Normal 21-32 [facility] Comment on above: Order Comment: Speci men Type: BLOOD SPECIMENOrdering Facility: [facility] Address: [address] [place] [address] Performed By: #### 2 4323-8 ####[facility] LABORATORYCLIA [id number] [place] [address] [place] Creatinine [Mass/Vol] 1.96 mg/dL High 0.50-1.40 [facility] Comment on above: Order Comment: Speci men Type: BLOOD SPECIMENOrdering Facility: [facility] Address: [address] [place] [address] Result Comment: Hyun ents receiving either N-Acetylcysteine (NAC) or Metamizole prior to venipuncture, may have falsely depressed results. Performed By: #### 2 4323-8 ####[facility] LABORATORYCLIA [id number] OF [facility] ESTIMATED GLOMERULAR FILTRATION RATE 39 mL/min/1.73m??? Low >=60 [facility] Comment on above: Order Comment: Speci men Type: BLOOD SPECIMENOrdering Facility: [facility] Address: [address] [place] [address] Result Comment: Laurita mated Glomerular Filtration Rate [...] actual GFR. Performed By: #### 2 4323-8 ####[facility] LABORATORYCLIA [id number] [place] [id number] [place] Glucose [Mass/Vol] 114 mg/dL High 70-100 [facility] Comment on above: Order Comment: Aaliyah gibson Type: BLOOD SPECIMENOrdering Facility: [facility] Address: [address] [address] Result Comment: The [place] Diabetes Association (ADA) provides guidance for cutoff [...] Standards of Medical Care in Diabetes 2016, [place] [employer]. Diabetes Care. 2016.39(Suppl 1). Results may be falsely elevated after the administration of Sulfapyridine. Results may be falsely depressed after the administration of Sulfasalazine. Performed By: #### 2 4323-8 ####[facility] LABORATORYCLIA [id number] [place] [address] [place] Potassium [Moles/Vol] 4.7 mmol/L Normal 3.5-5.1 [facility] Comment on above: Order Comment: Aaliyah gibson Type: BLOOD SPECIMENOrdering Facility: [facility] Address: [address] [id number] Performed By: #### 2 4323-8 ####[facility] LABORATORYCLIA [id number] [place] [id number] [place] Protein [Mass/Vol] 7.2 g/dL Normal 6.0-8.5 [facility] Comment on above: Order Comment: Speci men Type: BLOOD SPECIMENOrdering Facility: [facility] Address: [address] [address] Performed By: #### 2 4323-8 ####[facility] LABORATORYCLIA [id number] [place] [address] [place] Sodium [Moles/Vol] 139 mmol/L Normal 136-145 [facility] Comment on above: Order Comment: Speci men Type: BLOOD SPECIMENOrdering Facility: [facility] Address: [address] [address] Performed By: #### 2 4323-8 ####[facility] LABORATORYCLIA [id number] [place] [address] [place] Urea nitrogen [Mass/Vol] 23 mg/dL Normal 7-26 [facility] Comment on above: Order Comment: Speci men Type: BLOOD SPECIMENOrdering Facility: [facility] Address: [address] [address] Performed By: #### 2 4323-8 ####[facility] LABORATORYCLIA [id number] [place] [address] [place] Albumin [Mass/Vol] 3.5 g/dL 3.2 - 5.0 g/dL [facility] ALP [Catalytic activity/Vol] 107 U/L 45 - 117 U/L [facility] ALT [Catalytic activity/Vol] 102 U/L High 13 - 61 U/L [facility] Anion gap [Moles/Vol] 9 mmol/L 5 - 16 mmol/L [facility] AST [Catalytic activity/Vol] 62 U/L High 8 - 34 U/L [facility] Bilirubin [Mass/Vol] 0.4 mg/dL 0.2 - 1 .0 mg/dL [facility] Calcium [Mass/Vol] 9.5 mg/dL 8.5 - 10. 5 mg/dL [facility] Chloride [Moles/Vol] 103 mmol/L 98 - 10 7 mmol/L [facility] CO2 [Moles/Vol] 27 mmol/L 21 - 32 mmol/L [facility] Creatinine [Mass/Vol] 1.96 mg/dL High 0.50 - 1.40 mg/dL [facility] Estimated Glomerular Filtration Rate 39 mL/min/1.73m Low >=60 mL/min/1.7 3m [facility] Glucose [Mass/Vol] 114 mg/dL High 70 - 100 mg/dL [facility] Potassium [Moles/Vol] 4.7 mmol/L 3.5 - 5.1 mmol/L [facility] Protein [Mass/Vol] 7.2 g/dL 6.0 - 8.5 g/dL [facility] Sodium [Moles/Vol] 139 mmol/L 136 - 145 mmol/L [facility] Urea nitrogen [Mass/Vol] 23 mg/dL 7 - 26 mg/dL [facility] CNOVon 02-16-2022 CNOV Office Visit (CARMOB ) ----- YEFRI YANEZ ([id number]) 1965 M [facility] Date Time Provider Department 02/16/22 10:00 AM SAYRA TELLO During your visit today, we recorded the following information about you: Pulse Blood pressure Weight Height 51/minute 90/64 115.7 kg 1.803 m Sayra Tello MD 02/16/2022 11:29 AM Signed [facility] OUTPATIENT VISIT DATE 02/16/2022 OUTPATIENT VISIT TYPE NEW PATIENT PRIMARY CARE PHYSICIAN: Daksha Turner (Sarah) [address] [place] [id number] HISTORY OF PRESENT ILLNESS: 57-year-old male CAD, [...] vaping sometimes tobacco. 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 PAST MEDICAL HISTORY Diagnosis Date Abdominal aortic [...] A DAY cyclobenzapr (more content not included)... [facility] Office Visit (RDMERC ) ----- YEFRI YANEZ ([id number]) 1965 M [facility] Date Time Provider Department 02/13/22 2:00 PM [facility] During your visit today, we recorded the following information about you: Temperature Pulse Respiration Blood pressure 98.2 degrees 64/minute 22/minute 138/87 Weight 119.7 kg Suman Peterson APRN.CROWN ATTACHER 02/13/2022 2:41 PM Signed Radiation Oncology - [...] Mason RN (more content not included)... Normal [facility] CBCon 02-10-2022 Erythrocyte distribution width (RBC) [Ratio] 18.6 % High 11.5 - 14.5 [facility] Comment on above: Performed By: #### C BC #### [address] [address] Hematocrit (Bld) [Volume fraction] 41.8 % Normal 41.0 - 52.0 [facility] Comment on above: Performed By: #### C BC #### [address] [address] Hemoglobin (Bld) [Mass/Vol] 13.0 g/dL Low 13.5 - 17.5 [facility] Comment on above: Performed By: #### C BC #### [address] [address] MCHC (RBC) [Mass/Vol] 31.1 g/dL Low 32.0 - 36.0 [facility] Comment on above: Performed By: #### C BC #### [address] [address] MCV (RBC) [Entitic vol] 100 fL Normal 80 - 100 [facility] Comment on above: Performed By: #### C BC #### [address] [address] NUCLEATED RBC 0.0 /100 WBC Normal 0.0 - 0.0 [facility] Comment on above: Performed By: #### C BC #### [address] [address] Platelets (Bld) [#/Vol] 162 10*3/uL Normal 150 - 450 [facility] Comment on above: Performed By: #### C BC #### [address] [place] [address] RBC 4.17 x10E12/L Low 4.50 - 5.90 [facility] Comment on above: Performed By: #### C BC #### [address] [place] [address] WBC (Bld) [#/Vol] 5.5 10*3/uL Normal 4.4 - 11.3 [facility] Comment on above: Performed By: #### C BC #### [address] [place] [address] Daily Progress Note-Medicine on 02-10-2022 Daily Progress [...] night. Objective Data: Objective Information: T PRBPMAPSpO2 [id number]/05564% Date/Time02/10 8: 8: 8: 8: 8:00 Range(36.1C - 36.6C ) (57 - 80 ) (16 - 20 ) (138 - 167 )/ (91 - 126 ) (94% - 100% ) As of 09-Feb-2022 21:15:00, patient is on 3 L/min of oxygen via room air. Pain reported at 02/10 9:46: 0 = None ---- Intake and Output ----- Mn/Dy/Year TimeIntakeOutputNet Feb 10, 2022 6:00 [id number] Feb 09, 2022 10:00 [id number] Feb 09, 2022 2:00 [id number] The Intake and Output Totals for the last 24 hours are: IntakeOutunm children's psychiatric centerNet [id number] Physical Exam Narrative: Physical Exam: General: Appears [...] 12.5 mg (more content not included)... Normal [facility] Daily Progress Note-Urologyo n 02-10-2022 Daily Progress [...] overnight. Objective Data: Objective Information: T PRBPMAPSpO2 [id number]/83937% Date/Time02/10 8: 8: 8: 8: 8:00 Range(36.1C - 36.6C ) (57 - 80 ) (16 - 20 ) (138 - 167 )/ (91 - 126 ) (94% - 100% ) As of 09-Feb-2022 21:15:00, patient is on 3 L/min of oxygen via nasal cannula. Pain reported at 02/10 0:00: 0 = None ---- Intake and Output ----- Mn/Dy/[facility]Int[facility]Out[facility] Feb 10, 2022 6:00 [id number] Feb 09, 2022 10:00 [id number] Feb 09, 2022 2:00 [id number] The Intake and Output Totals for the last 24 hours are: IntakeOutUNC [facility] [id number] Physical Exam by System: Constitutional: Well developed, [...] on c (more content not included)... Normal [facility] PT Evaluation v2-physical th erapyon 02-10-2022 PT Evaluation v2-physical therapy Rehab: Info: Mode of Treatmentphysical therapy Time IN09:58 Time OUT10:08 Total Treatment Buluitq43 Patient in ... at end of sessionbed, 3 railings up Communicated with ... at end of sessionbedside nurse Patient Effortgood Symptoms Noted During/After Treatmentnone Patient Profile Reviewedyes Onset of Illness/Injury or Date of [id number] Reason for Referralimpaired mobility, gait training, impaired cognition/safety awareness Referring PhysicianDr. Hernandez General Observations of PatientCleared by nursing to work with patient. Pt supine in bed with HOB elevated. Pt in no apparent distress and willing to participate in therapy. RN agreeable to have patient out of bed and into chair. Pertinent History of Current Functional [id number]-[id number] male patient status post laparoscopic right radical [...] ambulate with no device. 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 Pt denies falls. Line and Tubestelemetry Vision/Cognition: Affect/Mental Status (Cognitive)WNL Orientation Status (Cognition)oriented x 4 ROM: Lower Extremity: Range of Motionleft lower extremity ROM WFL; right lower extremity ROM WFL MMT: Lower Extremity: Manual Muscle Testing (MMT)left lower extremity strength WFL; right lower extremity strength WFL Mobility/Tone: Bed Mobility Assessment/Interventionss upine to sit Tgesvc-gb-Qez [place] (Bed Mobility)independent Transfer Assessment/Interventionss it to stand transfer; stand to sit transfer Sit-Stand [place] (Transfers)modified independence Sit-Stand Assistive Device (Transfers)walker, front-wheeled Stand-Sit [place] (Transfers)modified independence Stand-Sit Assistive Device (Transfers)walker, front-wheeled Gait/Stairs Locomotiongait/ambulation assistive device; gait/ambulation independence; distance ambulated Gait Locomotion (Gait)modified independence Assistive Device (Gait Training)walker, front-wheeled Distance in Feet (Gait Training)250 ft WFLs Motor: Sitting, Static (Balance)good balance Sitting, Dynamic (Balance)good balance Bes-bt-Kplau (Balance)good balance Standing, Static (Balance)good balance Standing, Dynamic (Balance)good balance Sensory: Pre-Treatment Pain Rating0/10 - no pain Post-Treatment Pain Rating2/10 Comment, Pre/Post Treatment Painsoreness reported at incision site Sensory General Assessmentno sensation deficits identified Health: Observed Emotional Statecooperative; pleasant Plan of Care Reviewed Withpatient Impression: Criteria for Skilled Therapeutic Interventions Met (PT Eval)yes; treatment indicated PT PckoyynveB26.2 difficulty walking Physical Therapy Prognosisgood System Pathology/Pathophysiology [...] (PT Eval)5 times/wk Predicted Duration of Therapy Mmoqolfbjywm85 days Planned Therapy Interventions (PT Eval)balance training; [...] Score22 Short Term Goals: Gait: Established Gait: [place] Level Goalindependent Gait: Distance [id number] ft Gait: Time Frame for Goal2 wks Balance: Established Ba (more content not included)... Normal [facility] RENAL FUNCTION PANELon 02-10 Albumin [Mass/Vol] 3.4 g/dL Normal 3.4 - 5.0 [facility] Comment on above: Performed By: #### C BC #### [address] [place] [address] Anion gap [Moles/Vol] 11 mmol/L Normal 10 - 20 [facility] Comment on above: Performed By: #### C BC #### [address] [place] [address] Calcium [Mass/Vol] 8.5 mg/dL Low 8.6 - 10.3 [facility] Comment on above: Performed By: #### C BC #### [address] [place] [address] Chloride [Moles/Vol] 103 mmol/L Normal 98 - 107 [facility] Comment on above: Performed By: #### C BC #### [address] [place] [address] Creatinine [Mass/Vol] 1.48 mg/dL High 0.50 - 1.30 [facility] Comment on above: Performed By: #### C BC #### [address] [place] [address] GFR/1.73 sq M.predicted among non-blacks MDRD (S/P/Bld) [Vol rate/Area] 54 mL/min/{1.73_m2} Abnormal >90 [facility] Comment on above: Result Comment: CALC ULATIONS OF ESTIMATED GFR ARE PERFORMED USING THE 2020 CKD-EPI STUDY REFIT EQUATION WITHOUT THE RACE VARIABLE FOR THE IDMS-TRACEABLE CREATININE METHODS. https://jasn.asnjournals.org/content/early//ASN.2020 716642 Performed By: #### C BC #### [address] [place] [address] Glucose [Mass/Vol] 107 mg/dL High 74 - 99 [facility] Comment on above: Performed By: #### C BC #### [address] [place] [address] HCO3 (Bld) [Moles/Vol] 31 mmol/L Normal 21 - 32 [facility] Comment on above: Performed By: #### C BC #### [address] [address] Phosphate [Mass/Vol] 1.5 mg/dL Low 2.5 - 4.9 [facility] Comment on above: Result Comment: The performance characteristics of phosphorus testing in heparinized plasma have been validated by the individual laboratory site where testing is performed. Testing on heparinized plasma is not approved by the FDA; however, such approval is not necessary. Performed By: #### C BC #### [address] [address] Potassium [Moles/Vol] 3.9 mmol/L Normal 3.5 - 5.3 [facility] Comment on above: Performed By: #### C BC #### [address] [address] Sodium [Moles/Vol] 141 mmol/L Normal 136 - 145 [facility] Comment on above: Performed By: #### C BC #### [address] [address] Urea nitrogen [Mass/Vol] 21 mg/dL Normal 6 - 23 [facility] Comment on above: Performed By: #### C BC #### [address] [address] CBCon 02-09-2022 Erythrocyte distribution width (RBC) [Ratio] 19.1 % High 11.5 - 14.5 [facility] Comment on above: Performed By: #### C BC #### [address] [address] Hematocrit (Bld) [Volume fraction] 43.1 % Normal 41.0 - 52.0 [facility] Comment on above: Performed By: #### C BC #### [address] [address] Hemoglobin (Bld) [Mass/Vol] 13.5 g/dL Normal 13.5 - 17.5 [facility] Comment on above: Performed By: #### C BC #### [address] [address] MCHC (RBC) [Mass/Vol] 31.3 g/dL Low 32.0 - 36.0 [facility] Comment on above: Performed By: #### C BC #### [address] [address] MCV (RBC) [Entitic vol] 100 fL Normal 80 - 100 [facility] Comment on above: Performed By: #### C BC #### [address] [address] NUCLEATED RBC 0.0 /100 WBC Normal 0.0 - 0.0 [facility] Comment on above: Performed By: #### C BC #### [address] [address] Platelets (Bld) [#/Vol] 150 10*3/uL Normal 150 - 450 [facility] Comment on above: Performed By: #### C BC #### [address] [address] RBC 4.29 x10E12/L Low 4.50 - 5.90 [facility] Comment on above: Performed By: #### C BC #### [address] [address] WBC (Bld) [#/Vol] 5.8 10*3/uL Normal 4.4 - 11.3 [facility] Comment on above: Performed By: #### C BC #### [address] [address] Daily Progress Note-Medicine on 02-09-2022 Daily Progress [...] night. Objective Data: Objective Information: T PRBPMAPSpO2 [id number]/954174% Date/Time02/09 8: 8: 8: 8: 8:00 Range(36.4C [...] ----- Mn/Dy/Year TimeIntakeOutputNet Feb 09, 2022 6:00 [id number] Feb 08, 2022 10:00 [id number] Feb 08, 2022 2:00 [id number] The Intake and Output Totals for the last 24 hours are: IntakeOutputNet [id number] Physical Exam Narrative: Physical Exam: General: Appears [...] & Recom (more content not included)... Normal [facility] Daily Progress Note-Urologyo n 02-09-2022 Daily Progress [...] well. Objective Data: Objective Information: T PRBPMAPSpO2 [id number]/081881% Date/Time02/09 8: 8: 8: 8: 8:00 Range(36.4C [...] Mild ---- Intake and Output ----- Mn/Dy/[facility] Feb 09, 2022 6:00 [id number] Feb 08, 2022 10:00 [id number] Feb 08, 2022 2:00 [id number] The Intake and Output Totals for the last 24 hours are: [facility]akeVerm[facility] [id number] Physical Exam by System: Constitutional: Well developed, [...] - ap (more content not included)... Normal [facility] Discharge Planning Cful5rm 1 04-12-2021 Discharge Planning Note2 Discharge Planning: Needs Prior to Discharge (ex. Home Care Orders, IV/O2 prescriptions) TBD pending therapy evaluations and weaning off O2 Planned Dispositionhome Patient/Access Specialist Stated Goalto go home Anticipated Discharge [id number] Discharge Planning 02/09/2022 1100- This TCC met with the patient at the bedside. Patient with no use of HHC or DME prior to admission. Patient currently on 3L of O2 with no prior home O2 use. This TCC verified the patient's ability to obtain/afford medications. Patient's needs are TBD at this time, pending therapy evaluations. Patient lives at home in [place] with Miya and plans to return there. Family to provide transport at the time of d/c. Kitty Farias RN TCC 02/10- PT recs HHC. This TCC met with the pt at the bedside. Pt is currently refusing HHC, at this time. However, pt wants a walker. This TCC received a walker script and sent a referral to [facility] for delivery. Family to provide transport at the time of d/c. Cameron Atwood Assessment: Discharge Planning Assessment [id number] Discharge Planning Assessment Completed Kevin Farias Primary Contact Name and NumberwifeMiya [phone] Prior Level of FunctioningIndependent Lives Withspouse Stated Reason for Admissionright laparoscopic nephrectomy Ar[facility]CP[facility]. Daksha [facility] [place] Recent Falls/ Injury/ Need Assist with Ambulationn/a Home Care Agency/Support ServicesN/A Resource/Environmental Concernsnone Anticipated Transition [facility] Anticipated at Transitionnone Readmission Within the Last 30 Daysno previous admission in last 30 days PCP Last Date Seenlast month InsuranceMMO Super Med Special Considerationsn/a Transportation Home Who/Fidel (, Miya [phone]) Medication Adherence/Afford/Obtainye s Discharge Documentation: Discharge/Transfer Date/Smeu51-Edu-4315 18:00 Discharged Accompanied Byspouse Transportation Methodprivate car Discharge Modewheelchair Code StatusCode Status order at time of discharge: Full Code Discharge Order Writtenyes [place] DNR Form Sent with Patient and/or Familyn/a Valuables/Medications/Bel ongings Returnedyes Final Disposition.Home Electronic Signatures: Kitty Farias (STAFF N) (Signed 09-Feb-2022 11:10) Authored: Discharge Planning, Assessment, Discharge Documentation Cameron Atwood (RN) (Signed 10-Feb-2022 11:44) Authored: Discharge Planning, Discharge Documentation Marysol Hussein (STAFF N) (Signed 10-Feb-2022 18:21) Authored: Discharge Planning, Discharge Documentation Last Updated: 10-Feb-2022 18:21 by Marysol Hussein (STAFF N) Normal [facility] RENAL FUNCTION PANELon 02-09 Albumin [Mass/Vol] 3.5 g/dL Normal 3.4 - 5.0 [facility] Comment on above: Performed By: #### C BC #### [address] [address] Anion gap [Moles/Vol] 10 mmol/L Normal 10 - 20 [facility] Comment on above: Performed By: #### C BC #### [address] [address] Calcium [Mass/Vol] 8.8 mg/dL Normal 8.6 - 10.3 [facility] Comment on above: Performed By: #### C BC #### [address] [place] [address] Chloride [Moles/Vol] 102 mmol/L Normal 98 - 107 [facility] Comment on above: Performed By: #### C BC #### [address] [address] Creatinine [Mass/Vol] 1.84 mg/dL High 0.50 - 1.30 [facility] Comment on above: Performed By: #### C BC #### [address] [address] GFR/1.73 sq M.predicted among non-blacks MDRD (S/P/Bld) [Vol rate/Area] 42 mL/min/{1.73_m2} Abnormal >90 [facility] Comment on above: Result Comment: CALC ULATIONS OF ESTIMATED GFR ARE PERFORMED USING THE 2020 CKD-EPI STUDY REFIT EQUATION WITHOUT THE RACE VARIABLE FOR THE IDMS-TRACEABLE CREATININE METHODS. https://jasn.asnjournals.org/content/early//ASN.2020 336982 Performed By: #### C BC #### [address] [address] Glucose [Mass/Vol] 127 mg/dL High 74 - 99 [facility] Comment on above: Performed By: #### C BC #### [address] [address] HCO3 (Bld) [Moles/Vol] 33 mmol/L High 21 - 32 [facility] Comment on above: Performed By: #### C BC #### [address] [address] Phosphate [Mass/Vol] 2.8 mg/dL Normal 2.5 - 4.9 [facility] Comment on above: Result Comment: The performance characteristics of phosphorus testing in heparinized plasma have been validated by the individual laboratory site where testing is performed. Testing on heparinized plasma is not approved by the FDA; however, such approval is not necessary. Performed By: #### C BC #### [address] [address] Potassium [Moles/Vol] 4.3 mmol/L Normal 3.5 - 5.3 [facility] Comment on above: Performed By: #### C BC #### [address] [address] Sodium [Moles/Vol] 141 mmol/L Normal 136 - 145 [facility] Comment on above: Performed By: #### C BC #### [address] [address] Urea nitrogen [Mass/Vol] 25 mg/dL High 6 - 23 [facility] Comment on above: Performed By: #### C BC #### [address] [address] CBCon 02-08-2022 Erythrocyte distribution width (RBC) [Ratio] 19.7 % High 11.5 - 14.5 [facility] Comment on above: Performed By: #### C BC #### [address] [address] Hematocrit (Bld) [Volume fraction] 46.7 % Normal 41.0 - 52.0 [facility] Comment on above: Performed By: #### C BC #### [address] [address] Hemoglobin (Bld) [Mass/Vol] 14.0 g/dL Normal 13.5 - 17.5 [facility] Comment on above: Performed By: #### C BC #### [address] [address] MCHC (RBC) [Mass/Vol] 30.0 g/dL Low 32.0 - 36.0 [facility] Comment on above: Performed By: #### C BC #### [address] [address] MCV (RBC) [Entitic vol] 106 fL High 80 - 100 [facility] Comment on above: Performed By: #### C BC #### [address] [address] NUCLEATED RBC 0.3 /100 WBC Normal 0.0 - 0.0 [facility] Comment on above: Performed By: #### C BC #### [address] [address] Platelets (Bld) [#/Vol] 123 10*3/uL Low 150 - 450 [facility] Comment on above: Performed By: #### C BC #### [address] [place] [address] RBC 4.42 x10E12/L Low 4.50 - 5.90 [facility] Comment on above: Performed By: #### C BC #### [address] [place] [address] WBC (Bld) [#/Vol] 6.8 10*3/uL Normal 4.4 - 11.3 [facility] Comment on above: Performed By: #### C BC #### [address] [address] COMPREHENSIVE PANELon 2021 Albumin [Mass/Vol] 3.5 g/dL Normal 3.4 - 5.0 [facility] Comment on above: Performed By: #### C MP #### [address] [address] ALP [Catalytic activity/Vol] 54 U/L Normal 33 - 120 [facility] Comment on above: Performed By: #### C MP #### [address] [address] ALT [Catalytic activity/Vol] 121 U/L High 10 - 52 [facility] Comment on above: Result Comment: Hyun ents treated with Sulfasalazine may generate falsely decreased results for ALT. Performed By: #### C MP #### [address] [place] [address] Anion gap [Moles/Vol] 14 mmol/L Normal 10 - 20 [facility] Comment on above: Performed By: #### C MP #### [address] [address] AST [Catalytic activity/Vol] 83 U/L High 9 - 39 [facility] Comment on above: Result Comment: MILD HEMOLYSIS DETECTED. The result may be falsely elevated due to hemolysis or other interferents. Clinical correlation is recommended. Repeat testing may be considered. Performed By: #### C MP #### [address] [place] [address] Bilirubin [Mass/Vol] 0.9 mg/dL Normal 0.0 - 1.2 [facility] Comment on above: Performed By: #### C MP #### [address] [address] Calcium [Mass/Vol] 8.5 mg/dL Low 8.6 - 10.3 [facility] Comment on above: Performed By: #### C MP #### [address] [address] Chloride [Moles/Vol] 103 mmol/L Normal 98 - 107 [facility] Comment on above: Performed By: #### C MP #### [address] [address] Creatinine [Mass/Vol] 1.90 mg/dL High 0.50 - 1.30 [facility] Comment on above: Performed By: #### C MP #### [address] [address] GFR/1.73 sq M.predicted among non-blacks MDRD (S/P/Bld) [Vol rate/Area] 40 mL/min/{1.73_m2} Abnormal >90 [facility] Comment on above: Result Comment: CALC ULATIONS OF ESTIMATED GFR ARE PERFORMED USING THE 2020 CKD-EPI STUDY REFIT EQUATION WITHOUT THE RACE VARIABLE FOR THE IDMS-TRACEABLE CREATININE METHODS. https://jasn.asnjournals.org/content//ASN.2020 764413 Performed By: #### C MP #### [address] [address] Glucose [Mass/Vol] 92 mg/dL Normal 74 - 99 [facility] Comment on above: Performed By: #### C MP #### [address] [address] HCO3 (Bld) [Moles/Vol] 24 mmol/L Normal 21 - 32 [facility] Comment on above: Performed By: #### C MP #### [address] [address] Potassium [Moles/Vol] 4.2 mmol/L Normal 3.5 - 5.3 [facility] Comment on above: Result Comment: MILD HEMOLYSIS DETECTED. The result may be falsely elevated due to hemolysis or other interferents. Clinical correlation is recommended. Repeat testing may be considered. Performed By: #### C MP #### [address] [address] Protein [Mass/Vol] 6.0 g/dL Low 6.4 - 8.2 [facility] Comment on above: Performed By: #### C MP #### [address] [address] Sodium [Moles/Vol] 137 mmol/L Normal 136 - 145 [facility] Comment on above: Performed By: #### C MP #### [address] [address] Urea nitrogen [Mass/Vol] 31 mg/dL High 6 - 23 [facility] Comment on above: Performed By: #### C MP #### [address] [address] Daily Progress Note-Medicine on 02-08-2022 Daily Progress [...] night. Objective Data: Objective Information: T PRBPMAPSpO2 [id number] % Date/Time02/08 8: 8: 8: 8: 11: [...] Mild ---- Intake and Output ----- Mn/Dy/Year TimeIntakeOutUNC [facility] Feb 08, 2022 6:00 [id number] Feb 07, 2022 10:00 [id number] Feb 07, 2022 2:00 pm228.8250-22 The Intake and Output Totals for the last 24 hours are: IntakeOutputNet [id number] Physical Exam Narrative: Physical Exam: General: Appears [...] # Atelectasi (more content not included)... Normal [facility] Daily Progress Note-Urologyo n 02-08-2022 Daily Progress [...] complaints. Objective Data: Objective Information: T PRBPMAPSpO2 [id number]/[id number] % Date/Time02/08 8: 8: 8: 8: 11: [...] ----- Mn/Dy/Year TimeIntakeOutputNet Feb 08, 2022 6:00 [id number] Feb 07, 2022 10:00 [id number] Feb 07, 2022 2:00 pm228.8250-22 The Intake and Output Totals for the last 24 hours are: [facility] [id number] Physical Exam Narrative: Physical Exam: General: in [...] Updated: 08-Feb-2022 10:32 by Andre Mota) Normal [facility] ARTERIAL FULL PANELon 12-03- 2022 OXY HGB 92.9 % Low 94.0 - 98.0 [facility] Comment on above: Result Comment: Test report [...] 08:50 Performed By: #### C BC #### [address] [place] [address] SO2 93 % Low 94 - 100 [facility] Comment on above: Result Comment: Test report [...] 08:50 Performed By: #### C BC #### [place] [id number] LANRE'S TEST[COLLATERAL CIRCULATION] YES, RR Normal [facility] Comment on above: Performed By: #### C BC #### [place] [id number] Anion gap [Moles/Vol] 9 mmol/L Low 10 - 25 [facility] Comment on above: Performed By: #### C BC #### [address] [address] BASE EXCESS-BLOOD 2.9 mmol/L Normal -2.0 - 3.0 [facility] Comment on above: Performed By: #### C BC #### [address] [address] BICARB, CALCULATED 31.0 mmol/L High 22.0 - 26.0 [facility] Comment on above: Performed By: #### C BC #### [address] [place] [address] CALCIUM,IONIZED 1.17 mmol/L Normal 1.10 - 1.33 [facility] Comment on above: Performed By: #### C BC #### [address] [place] [address] Chloride [Moles/Vol] 105 mmol/L Normal 98 - 107 [facility] Comment on above: Performed By: #### C BC #### [address] [place] [address] EPAP CMH2O 8.0 cm H2O Normal [facility] Comment on above: Performed By: #### C BC #### [address] [address] FLOW 8.0 LPM Normal [facility] Comment on above: Performed By: #### C BC #### [address] [address] Glucose [Mass/Vol] 117 mg/dL High 74 - 99 [facility] Comment on above: Performed By: #### C BC #### [address] [address] Hematocrit (Bld) [Volume fraction] 40.0 % Low 41.0 - 52.0 [facility] Comment on above: Performed By: #### C BC #### [address] [place] [address] Hemoglobin (Bld) [Mass/Vol] 13.2 g/dL Normal 13.5 - 17.5 [facility] Comment on above: Result Comment: Test report has been amended to note detection of an absorbance or turbidity error which may cause inaccurate results. The result is unchanged but should be interpreted with caution and in conjunction with additional laboratory information. Performed By: #### C BC #### [address] [place] [address] IPAP CMH2O 16.0 cm H2O Normal [facility] Comment on above: Performed By: #### C BC #### [address] [place] [address] Lactate [Moles/Vol] 0.9 mmol/L Normal 0.4 - 2.0 [facility] Comment on above: Performed By: #### C BC #### [address] [address] Oxygen (Bld) [Partial pressure] 95 mm[Hg] Normal 85 - 95 [facility] Comment on above: Performed By: #### C BC #### [address] [address] PATIENT TEMPERATURE 37.0 degrees C Normal [facility] Comment on above: Result Comment: NOTE : PATIENT RESULTS ARE NOT CORRECTED FOR TEMPERATURE. Performed By: #### C BC #### [address] [address] PCO2 63 mmHg High 38 - 42 [facility] Comment on above: Performed By: #### C BC #### [address] [address] pH (Bld) 7.30 [pH] Low 7.38 - 7.42 [facility] Comment on above: Performed By: #### C BC #### [address] [address] Potassium [Moles/Vol] 4.6 mmol/L Normal 3.5 - 5.3 [facility] Comment on above: Performed By: #### C BC #### [address] [address] Sodium [Moles/Vol] 140 mmol/L Normal 136 - 145 [facility] Comment on above: Performed By: #### C BC #### [address] [address] VENTILATOR MODE BiPAP Normal [facility] Comment on above: Performed By: #### C BC #### [address] [address] LANRE'S TEST[COLLATERAL CIRCULATION] N/A Normal [facility] Comment on above: Order Comment: BIPAP 14/8 4 LPM Performed By: #### A FPA4 ####[address] [address] Anion gap [Moles/Vol] 11 mmol/L Normal 10 - 25 [facility] Comment on above: Order Comment: BIPAP 19/10 4 LPM Performed By: #### A FPA4 ####[address] [address] BASE EXCESS-BLOOD 1.5 mmol/L Normal -2.0 - 3.0 [facility] Comment on above: Order Comment: BIPAP 19/10 4 LPM Performed By: #### A FPA4 ####[address] [address] BICARB, CALCULATED 30.3 mmol/L High 22.0 - 26.0 [facility] Comment on above: Order Comment: BIPAP 19/10 4 LPM Performed By: #### A FPA4 ####[address] [address] CALCIUM,IONIZED 1.18 mmol/L Normal 1.10 - 1.33 [facility] Comment on above: Order Comment: BIPAP 19/10 4 LPM Performed By: #### A FPA4 ####[address] [address] Chloride [Moles/Vol] 104 mmol/L Normal 98 - 107 [facility] Comment on above: Order Comment: BIPAP 19/10 4 LPM Performed By: #### A FPA4 ####[address] [address] Glucose [Mass/Vol] 168 mg/dL High 74 - 99 [facility] Comment on above: Order Comment: BIPAP 19/10 4 LPM Performed By: #### A FPA4 ####[address] [place] [address] Hematocrit (Bld) [Volume fraction] 42.0 % Normal 41.0 - 52.0 [facility] Comment on above: Order Comment: BIPAP 14 4 LPM Performed By: #### A FPA4 ####[address] [address] Hemoglobin (Bld) [Mass/Vol] 14.1 g/dL Normal 13.5 - 17.5 [facility] Comment on above: Order Comment: BIPAP 14/8 4 LPM Performed By: #### A FPA4 ####[address] [address] Lactate [Moles/Vol] 0.9 mmol/L Normal 0.4 - 2.0 [facility] Comment on above: Order Comment: BIPAP 14/ 4 LPM Performed By: #### A FPA4 ####[address] [address] OXY HGB 87.0 % Low 94.0 - 98.0 [facility] Comment on above: Order Comment: BIPAP 14/ 4 LPM Performed By: #### A FPA4 ####[address] [address] Oxygen (Bld) [Partial pressure] 63 mm[Hg] Low 85 - 95 [facility] Comment on above: Order Comment: BIPAP 14/ 4 LPM Performed By: #### A FPA4 ####[address] [address] PATIENT TEMPERATURE 37.0 degrees C Normal [facility] Comment on above: Order Comment: BIPAP 14/ 4 LPM Result Comment: NOTE : PATIENT RESULTS ARE NOT CORRECTED FOR TEMPERATURE. Performed By: #### A FPA4 ####[address] [address] PCO2 66 mmHg High 38 - 42 [facility] Comment on above: Order Comment: BIPAP 14/8 4 LPM Performed By: #### A FPA4 ####[address] [address] pH (Bld) 7.27 [pH] Low 7.38 - 7.42 [facility] Comment on above: Order Comment: BIPAP 14/8 4 LPM Performed By: #### A FPA4 ####[address] [address] Potassium [Moles/Vol] 4.4 mmol/L Normal 3.5 - 5.3 [facility] Comment on above: Order Comment: BIPAP 14/8 4 LPM Performed By: #### A FPA4 ####[address] [address] SO2 89 % Low 94 - 100 [facility] Comment on above: Order Comment: BIPAP 14/ 4 LPM Performed By: #### A FPA4 ####[address] [address] Sodium [Moles/Vol] 141 mmol/L Normal 136 - 145 [facility] Comment on above: Order Comment: BIPAP 19/10 4 LPM Performed By: #### A FPA4 ####[address] [address] CBCon 02-07-2022 Erythrocyte distribution width (RBC) [Ratio] 19.1 % High 11.5 - 14.5 [facility] Comment on above: Performed By: #### C BC ####[address] [address] Hematocrit (Bld) [Volume fraction] 43.1 % Normal 41.0 - 52.0 [facility] Comment on above: Performed By: #### C BC ####[address] [address] Hemoglobin (Bld) [Mass/Vol] 13.6 g/dL Normal 13.5 - 17.5 [facility] Comment on above: Performed By: #### C BC ####[address] [address] MCHC (RBC) [Mass/Vol] 31.6 g/dL Low 32.0 - 36.0 [facility] Comment on above: Performed By: #### C BC ####[address] [address] MCV (RBC) [Entitic vol] 100 fL Normal 80 - 100 [facility] [place] Comment on above: Performed By: #### C BC ####[address] [address] NUCLEATED RBC 0.4 /100 WBC Normal 0.0 - 0.0 [facility] Comment on above: Performed By: #### C BC ####[facility] [facility] [place] [address] Platelets (Bld) [#/Vol] 150 10*3/uL Normal 150 - 450 [facility] Comment on above: Performed By: #### C BC ####[place] [address] [facility] [place] [address] RBC 4.32 x10E12/L Low 4.50 - 5.90 [facility] Comment on above: Performed By: #### C BC ####[address] [address] WBC (Bld) [#/Vol] 7.1 10*3/uL Normal 4.4 - 11.3 [facility] Comment on above: Performed By: #### C BC ####[address] [address] Consult-DACR, Medicineon Consult-DACR, Medicine Service: Service: DACR [...] Mushrooms: Unknown Objective: Objective Information: T PRBPMAPSpO2 Value37.7832080/358485% Date/Time02/07 16: 16: 16: 16: 11: 16:00 [...] 2.9 Bi (more content not included)... Normal [facility] Daily Progress Note - Critic Mcbride 02-07-2022 Daily Progress Note - Critical Care Subjective Data: ID Statement: YEFRI YANEZ is a 57 year old Male who is Hospital Day # 2 and ICU Day #2 and POD #1 for laparoscopic right radical nephrectomy. AAOx3, on nasal cannula. No complaints of pain on exam. Resting comfortably. Objective Data: Objective Information T PRBPMAPSpO2 Value35.06209016/970968% Date/Time02/07 4: 7: 7: 7: 7: 7:00 [...] for the last 24 hours are: IntakeOutputNet [id number] Drain and tube details (included in I&O totals) 1100 cc Indwelling Catheter - Urethral( 07-Feb-2022 06:00:00 ) Date: Weight/Scale Type: 07-Feb-2022 06:03120.7 kg / bed 06-Feb-2022 09:10222 kg 06-Feb-2022 09:21962 kg Physical Exam by System: Neurological: alert [...] h range: ( 7.26 - 7.45 ) [id number] 24 h range: ( 46 - 68 ) [id number] 24 h range: ( 87 (more content not included)... Normal [facility] Daily Progress Note-Urologyo n 02-07-2022 Daily Progress [...] noted. Objective Data: Objective Information: T PRBPMAPSpO2 Value35.25186704/954122% Date/Time02/07 4: 7: 7: 7: 7: 7:00 [...] for the last 24 hours are: IntakeOutputNet [id number] Physical Exam Narrative: Physical Exam: General: in [...] h range: ( 7.26 - 7.45 ) [id number] 24 h range: ( 46 - 68 [...] Updated: 07-Feb-2022 07:33 by Andre Mota) Normal [facility] GLUCOSE-POCTon 02-07-2022 Glucose [Mass/Vol] 124 mg/dL High 74 - 99 [facility] Comment on above: Performed By: #### G STEFANI ####[facility] [facility] [place] [address] MAGNESIUMon 02-07-2022 Magnesium [Mass/Vol] 1.98 mg/dL Normal 1.60 - 2.40 [facility] Comment on above: Performed By: #### M G ####[address] [address] RENAL FUNCTION PANELon 02-07 Albumin [Mass/Vol] 3.7 g/dL Normal 3.4 - 5.0 [facility] Comment on above: Performed By: #### R ENAL #### [address] [address] Anion gap [Moles/Vol] 14 mmol/L Normal 10 - 20 [facility] Comment on above: Performed By: #### R ENAL #### [address] [address] Calcium [Mass/Vol] 8.4 mg/dL Low 8.6 - 10.3 [facility] Comment on above: Performed By: #### R ENAL #### [address] [address] Chloride [Moles/Vol] 107 mmol/L Normal 98 - 107 [facility] Comment on above: Performed By: #### R ENAL #### [address] [address] Creatinine [Mass/Vol] 1.57 mg/dL High 0.50 - 1.30 [facility] Comment on above: Performed By: #### R ENAL #### [address] [address] GFR/1.73 sq M.predicted among non-blacks MDRD (S/P/Bld) [Vol rate/Area] 51 mL/min/{1.73_m2} Abnormal >90 [facility] Comment on above: Result Comment: CALC ULATIONS OF ESTIMATED GFR ARE PERFORMED USING THE 2020 CKD-EPI STUDY REFIT EQUATION WITHOUT THE RACE VARIABLE FOR THE IDMS-TRACEABLE CREATININE METHODS. https://jasn.asnjournals.org/content//ASN.2020 187825 Performed By: #### R ENAL #### [address] [place] [address] Glucose [Mass/Vol] 115 mg/dL High 74 - 99 [facility] Comment on above: Performed By: #### R ENAL #### [address] [place] [address] HCO3 (Bld) [Moles/Vol] 29 mmol/L Normal 21 - 32 [facility] Comment on above: Performed By: #### R ENAL #### [address] [address] Phosphate [Mass/Vol] 6.1 mg/dL High 2.5 - 4.9 [facility] Comment on above: Result Comment: The performance characteristics of phosphorus testing in heparinized plasma have been validated by the individual laboratory site where testing is performed. Testing on heparinized plasma is not approved by the FDA; however, such approval is not necessary. Performed By: #### R ENAL #### [address] [address] Potassium [Moles/Vol] 4.6 mmol/L Normal 3.5 - 5.3 [facility] Comment on above: Performed By: #### R ENAL #### [address] [address] Sodium [Moles/Vol] 145 mmol/L Normal 136 - 145 [facility] Comment on above: Performed By: #### R ENAL #### [address] [address] Urea nitrogen [Mass/Vol] 25 mg/dL High 6 - 23 [facility] Comment on above: Performed By: #### R ENAL #### [address] [address] ABO/RH GROUP TESTon 02-07-20 22 ABO TYPE Canceled Normal [facility] Comment on above: Order Comment: TEST ABO/RH GROUP TEST WAS CANCELLED, 02/06/2022 15:57 not needed. Performed By: #### C BC #### [address] [address] RH TYPE Canceled Normal [facility] Comment on above: Order Comment: TEST ABO/RH GROUP TEST WAS CANCELLED, 02/06/2022 15:57 not needed. Performed By: #### C BC #### [address] [address] ARTERIAL FULL PANELon 2021 LANRE'S TEST[COLLATERAL CIRCULATION] N/A Normal [facility] Comment on above: Order Comment: 4 LPM NC Performed By: #### A FPA4 #### [address] [address] Anion gap [Moles/Vol] 10 mmol/L Normal 10 - 25 [facility] Comment on above: Order Comment: 4 LPM NC Performed By: #### A FPA4 #### [address] [address] BASE EXCESS-BLOOD 1.4 mmol/L Normal -2.0 - 3.0 [facility] Comment on above: Order Comment: 4 LPM NC Performed By: #### A FPA4 #### [address] [address] BICARB, CALCULATED 30.5 mmol/L High 22.0 - 26.0 [facility] Comment on above: Order Comment: 4 LPM NC Performed By: #### A FPA4 #### [address] [address] CALCIUM,IONIZED 1.17 mmol/L Normal 1.10 - 1.33 [facility] Comment on above: Order Comment: 4 LPM NC Performed By: #### A FPA4 #### [address] [address] Chloride [Moles/Vol] 105 mmol/L Normal 98 - 107 [facility] Comment on above: Order Comment: 4 LPM NC Performed By: #### A FPA4 #### [address] [address] Glucose [Mass/Vol] 142 mg/dL High 74 - 99 [facility] Comment on above: Order Comment: 4 LPM NC Performed By: #### A FPA4 #### [address] [address] Hematocrit (Bld) [Volume fraction] 43.0 % Normal 41.0 - 52.0 [facility] Comment on above: Order Comment: 4 LPM NC Performed By: #### A FPA4 #### [address] [address] Hemoglobin (Bld) [Mass/Vol] 14.3 g/dL Normal 13.5 - 17.5 [facility] Comment on above: Order Comment: 4 LPM NC Performed By: #### A FPA4 #### [address] [address] Lactate [Moles/Vol] 1.0 mmol/L Normal 0.4 - 2.0 [facility] Comment on above: Order Comment: 4 LPM NC Performed By: #### A FPA4 #### [address] [address] OXY HGB 84.3 % Low 94.0 - 98.0 [facility] Comment on above: Order Comment: 4 LPM NC Performed By: #### A FPA4 #### [address] [address] Oxygen (Bld) [Partial pressure] 60 mm[Hg] Low 85 - 95 [facility] Comment on above: Order Comment: 4 LPM NC Performed By: #### A FPA4 #### [address] [address] PATIENT TEMPERATURE 37.0 degrees C Normal [facility] Comment on above: Order Comment: 4 LPM NC Result Comment: NOTE : PATIENT RESULTS ARE NOT CORRECTED FOR TEMPERATURE. Performed By: #### A FPA4 #### [address] [address] PCO2 68 mmHg High 38 - 42 [facility] Comment on above: Order Comment: 4 LPM NC Performed By: #### A FPA4 #### [address] [address] pH (Bld) 7.26 [pH] Low 7.38 - 7.42 [facility] Comment on above: Order Comment: 4 LPM NC Performed By: #### A FPA4 #### [address] [place] [address] Potassium [Moles/Vol] 4.0 mmol/L Normal 3.5 - 5.3 [facility] Comment on above: Order Comment: 4 LPM NC Performed By: #### A FPA4 #### [address] [place] [address] SO2 87 % Low 94 - 100 [facility] Comment on above: Order Comment: 4 LPM NC Performed By: #### A FPA4 #### [address] [address] Sodium [Moles/Vol] 141 mmol/L Normal 136 - 145 [facility] Comment on above: Order Comment: 4 LPM NC Performed By: #### A FPA4 #### [address] [place] [address] Anion gap [Moles/Vol] 6 mmol/L Low 10 - 25 [facility] Comment on above: Performed By: #### A FPA4 ####[address] [address] BASE EXCESS-BLOOD 6.9 mmol/L High -2.0 - 3.0 [facility] Comment on above: Performed By: #### A FPA4 ####[address] [address] BICARB, CALCULATED 32.0 mmol/L High 22.0 - 26.0 [facility] Comment on above: Performed By: #### A FPA4 ####[address] [address] CALCIUM,IONIZED 1.16 mmol/L Normal 1.10 - 1.33 [facility] Comment on above: Performed By: #### A FPA4 ####[address] [address] Chloride [Moles/Vol] 106 mmol/L Normal 98 - 107 [facility] Comment on above: Performed By: #### A FPA4 ####[address] [address] Glucose [Mass/Vol] 146 mg/dL High 74 - 99 [facility] Comment on above: Performed By: #### A FPA4 ####[address] [address] Hematocrit (Bld) [Volume fraction] 42.0 % Normal 41.0 - 52.0 [facility] Comment on above: Performed By: #### A FPA4 ####[address] [address] Hemoglobin (Bld) [Mass/Vol] 14.1 g/dL Normal 13.5 - 17.5 [facility] Comment on above: Performed By: #### A FPA4 ####[address] [address] Lactate [Moles/Vol] 1.2 mmol/L Normal 0.4 - 2.0 [facility] Comment on above: Performed By: #### A FPA4 ####[address] [address] OXY HGB 95.3 % Normal 94.0 - 98.0 [facility] Comment on above: Performed By: #### A FPA4 ####[address] [address] Oxygen (Bld) [Partial pressure] 84 mm[Hg] Low 85 - 95 [facility] Comment on above: Performed By: #### A FPA4 ####[address] [address] PATIENT TEMPERATURE 37.0 degrees C Normal [facility] Comment on above: Result Comment: NOTE : PATIENT RESULTS ARE NOT CORRECTED FOR TEMPERATURE. Performed By: #### A FPA4 ####[address] [address] PCO2 46 mmHg High 38 - 42 [facility] Comment on above: Performed By: #### A FPA4 ####[address] [address] pH (Bld) 7.45 [pH] High 7.38 - 7.42 [facility] Comment on above: Performed By: #### A FPA4 ####[facility] [place] [address] [place] [address] Potassium [Moles/Vol] 3.4 mmol/L Low 3.5 - 5.3 [facility] Comment on above: Performed By: #### A FPA4 ####[facility] [place] [address] [place] [address] SO2 98 % Normal 94 - 100 [facility] Comment on above: Performed By: #### A FPA4 ####[address] [place] [address] Sodium [Moles/Vol] 141 mmol/L Normal 136 - 145 [facility] Comment on above: Performed By: #### A FPA4 ####[address] [place] [address] CBCon 02-06-2022 Erythrocyte distribution width (RBC) [Ratio] 19.0 % High 11.5 - 14.5 [facility] Comment on above: Performed By: #### C BC #### [address] [place] [address] Hematocrit (Bld) [Volume fraction] 42.4 % Normal 41.0 - 52.0 [facility] Comment on above: Performed By: #### C BC #### [address] [place] [address] Hemoglobin (Bld) [Mass/Vol] 13.5 g/dL Normal 13.5 - 17.5 [facility] Comment on above: Performed By: #### C BC #### [address] [place] [address] MCHC (RBC) [Mass/Vol] 31.8 g/dL Low 32.0 - 36.0 [facility] Comment on above: Performed By: #### C BC #### [address] [place] [address] MCV (RBC) [Entitic vol] 99 fL Normal 80 - 100 [facility] [place] Comment on above: Performed By: #### C BC #### [address] [place] [address] NUCLEATED RBC 0.6 /100 WBC Normal 0.0 - 0.0 [facility] Comment on above: Performed By: #### C BC #### [address] [address] Platelets (Bld) [#/Vol] 137 10*3/uL Low 150 - 450 [facility] Comment on above: Performed By: #### C BC #### [address] [address] RBC 4.29 x10E12/L Low 4.50 - 5.90 [facility] Comment on above: Performed By: #### C BC #### [address] [address] WBC (Bld) [#/Vol] 6.9 10*3/uL Normal 4.4 - 11.3 [facility] Comment on above: Performed By: #### C BC #### [address] [address] Clinical Intervention - Ginna etienne 02-06-2022 Clinical Intervention - Pharmacy Pharmacist's Clinical Intervention: Is this intervention medication reconciliation related: yes, History Electronic Signatures: Andrés Bañuelos ([employer]) (Signed 06-Feb-2022 18:53) Authored: Pharmacist's Clinical Intervention Last Updated: 06-Feb-2022 18:53 by Andrés Bañuelos ([employer]) [facility] [place]-Critical Careon 12-0 Consult-Critical Care Service: Service: [...] MAP >70 (more content not included)... Normal [facility] Discharge [id number] Discharge Profile2 Discharge Orders: Anticipated Discharge Date: Anticipated Discharge [id number] Problem List: Admitting Dx: Renal cell carcinoma: [...] WORRISOME - NOTIFY YOUR PHYSICIAN OR RESIDENT SHIFT COORDINATOR. - Fever greater than 101 F or 38.3 C, chills, nausea, vomiting, or feeling ill. - Inability to urinate. - Drainage of foul smelling fluid (pus) from the incision or drain sites. - Excruciating pain that is not controlled by prescription or [id number] medications. - You were sent home on [...] appointments, please call our Main Office at [phone]. Provider FINAL REVIEW of Orders: Final Review: Final Review of Medication Reconciliation and Orders Completedby Physician Reviewing ProviderClau Diallo MD (Resident) at 06-Feb-2022 13:52:19 Appointments: Follow-Up Appointment 01: Physician/Dept/ServiceDr. Hernandez Reason for Referralpost op follow up Call to Schedule in2 weeks Phone [phone] CommentsPlease call to schedule appointment Follow-Up Appointment 02: Phys[facility] Reason for ReferralHospital follow up - blood pressure Call to Schedule in2-3 days CommentsPlease call to schedule Electronic Signatures: Gini Escalante (DAIRY NUTRITION SPECIALIST-[facility]) (Signed 10-Feb-2022 11:42) Authored: Discharge Orders, Appointments Clau Diallo ( (Resident)) (Signed 06-Feb-2022 13:52) Authored: Discharge Orders, Urology, Provider FINAL REVIEW of Orders, Gold Form - Skin Care Therapist Summary Last Updated: 10-Feb-2022 11:42 by Gini Escalante (DAIRY NUTRITION SPECIALIST-[facility]) Normal [facility] GLUCOSE-POCTon 02-06-2022 Glucose [Mass/Vol] 133 mg/dL High 74 - 99 [facility] Comment on above: Performed By: #### G STEFANI #### [facility] [address] [facility] [place] [address] Order Reconciliationon 02-06 Order Reconciliation Page 1 Discharge Reconciliation Document Reconciliation Type: Discharge requested on behalf of Gini Escalante (Advanced Practice Nurse) done by Gini Escalante ([facility] [facility] Discharge - Reconciliation: 06-Feb-2022 13:48 by: Clau Diallo ( (Resident)) Discharge - Reset to Incomplete: 09-Feb-2022 12:41 by: Gini Escalante ([facility]) Discharge - Partial Reconciliation: 09-Feb-2022 12:42 by: Gini Escalante ([facility]) Discharge - Partial Reconciliation: 10-Feb-2022 11:06 by: Luís Siegel (Resident)) Discharge - Partial Reconciliation: 10-Feb-2022 11:17 by: Luís Siegel (DO (Resident)) Discharge - Reconciliation: 10-Feb-2022 11:21 by: Gini Escalante ([facility]) Home Medications EnteredHOME MEDICATIONS AT DISCHARGE DateReconciliation [...] not requir (more content not included)... Normal [facility] Order Reconciliation Page 1 Admission Reconciliation Document Reconciliation Type: Admission from OR requested on behalf of Clau Diallo (Resident) done by Clau Diallo ( (Resident)) Admission from OR - Reconciliation: 06-Feb-2022 13:42 by: Clau Diallo ( (Resident)) Home MedicationsEnteredLast Dose TakenReconciled with current Order Reconciliation Comment/ Additional Information Cabometyx 20 mg oral tablet 1 tab(s) orally once a [id number] AM Reviewed and Held carvedilol 6.25 mg oral tablet 1 tab(s) orally once a [id number]-[id number]-Feb-2022 AM Carvedilol - PEDS Tablet (COREG)DOSE = 6.25 mg Oral DailyCa.0543 mg/Kg/DOSE x 115 Kg = 6.25 mg/Dose (Daily Total is 6.25 mg) Weight type: Med Calc Weightcarvedilol 6.25 mg oral tablet continued as the inpatient order Carvedilol - PEDS cyclobenzaprine 10 mg oral tablet 1 tab(s) orally 3 times a [id number]-Feb-2022 AM Cyclobenzaprine Tablet (FLEXERIL)DOSE = 10 mg Oral 3 Times a Daycyclobenzaprine 10 mg oral tablet continued as the inpatient order Cyclobenzaprine ibuprofen 800 mg oral tablet 1 tab(s) orally 3 times a day, As Needed 2021 Reviewed and Held lovastatin 10 mg oral tablet 1 tab(s) orally once a [id number] Atorvastatin Tablet (LIPITOR)DOSE = 10 mg Oral At Bedtimelovastatin 10 mg oral tablet continued as the inpatient order Atorvastatin pantoprazole 40 mg oral delayed release tablet 1 tab(s) orally once a day [id number] Pantoprazole Enteric Coated Tablet (PROTONIX)DOSE = 40 mg Oral Dailypantoprazole 40 mg oral delayed release tablet continued as the inpatient order Pantoprazole spironolactone 25 mg oral tablet 1 tab(s) orally once a [id number]-[id number]-Feb-2022 AM Spironolactone Tablet (ALDACTONE)DOSE = 25 mg Oral Daily spironolactone 25 mg oral tablet continued as the inpatient order Spironolactone warfarin 5 mg oral tablet 1 tab(s) orally once a [id number] Reviewed and Held Additional Current Orders Acetaminophen [...] micrograms r (more content not included)... Normal [facility] PT/INRon 02-06-2022 PT Coag (PPP) [Time] 14.3 s High 9.8 - 13.4 [facility] Comment on above: Performed By: #### P TINR ####[facility] [facility] [place] [address] PT, INR 1.2 High 0.9 - 1.1 [facility] Comment on above: Performed By: #### P TINR ####[facility] [facility] [place] [address] Patient Profile - Preop v3on 02-06-2022 Patient Profile - Preop v3 Patient Profile - Preop: Initial Info: Patient DemographicsName: YEFRI YANEZ Date: 1965 Address: [facility] NATHANIEL JIMENEZ, [facility] Primary Phone [phone] Instructions Givenanticoagulant meds - patient advised to consult ordering provider, appropriate clothing, bring glasses/contacts case, bring list of medications, center location, diabetes meds - patient advised to consult ordering provider, insurance information, remove jewerly/piercings How to be AddressedTHOMAS Spoken Language PreferredEnglish Source of Informationpatient Stated Reason for AdmissionREMOVAL OF RIGHT KIDNEY Primary Contact Name and Numbersonya [phone] Limitations on Visitors/Phone Callsnone Medications Brought to Hospitalno General Health: Weight in kg115 kilogram(s) Weight in iyy450.5 pound(s) Weight Methodstated Scale Typechair Height in feet5 feet Height in uwvjjz04 inch(es) Height in cm177.8 centimeter(s) Height Methodstated BMI (kg/m2)36.377 square meter Patient or Family Member Reaction to Anesthesianever had anesthesia Blood Avoidance/Restrictionsnon e Previous Transfusion Reactionnever had blood Health Mgmt: Symptoms/Conditions Managed at [facility] list Barriers to Managing Healthnone Relationship/Environ: Lives Withspouse Living Arrangementshouse Resource/Environmental Concernsnone Anticipated Transition [employer] [facility] Anticipated at [facility] Tobacco Use: Tobacco Useyes Last Tobacco [id number]-7909 Tobacco CommentCIGARS, VAPING Pre-op Checklist: Arrival [id number] Arrival Time10:02 Procedure TypeRT LAPAROSCOPIC NEPHRECTOMY NPOyes Last Food [id number]-Air-8828 19:30 Last Clear Fluid Brexjn37-[id number]-8362 06:30 ID Band On Patientpatient ID (name), [...] 06-Feb-2022 10:06 by Ivette Elizondo (JOHN) Normal [facility] RENAL FUNCTION PANELon 02-06 Albumin [Mass/Vol] 3.8 g/dL Normal 3.4 - 5.0 [facility] Comment on above: Performed By: #### C BC #### [address] [address] Anion gap [Moles/Vol] 10 mmol/L Normal 10 - 20 [facility] Comment on above: Performed By: #### C BC #### [address] [address] Calcium [Mass/Vol] 8.6 mg/dL Normal 8.6 - 10.3 [facility] Comment on above: Performed By: #### C BC #### [address] [address] Chloride [Moles/Vol] 106 mmol/L Normal 98 - 107 [facility] Comment on above: Performed By: #### C BC #### [address] [address] Creatinine [Mass/Vol] 1.38 mg/dL High 0.50 - 1.30 [facility] Comment on above: Performed By: #### C BC #### [address] [address] GFR/1.73 sq M.predicted among non-blacks MDRD (S/P/Bld) [Vol rate/Area] 59 mL/min/{1.73_m2} Abnormal >90 [facility] Comment on above: Result Comment: CALC ULATIONS OF ESTIMATED GFR ARE PERFORMED USING THE 2020 CKD-EPI STUDY REFIT EQUATION WITHOUT THE RACE VARIABLE FOR THE IDMS-TRACEABLE CREATININE METHODS. https://jasn.asnjournals.org/content/early//ASN.2020 924431 Performed By: #### C BC #### [address] [address] Glucose [Mass/Vol] 138 mg/dL High 74 - 99 [facility] Comment on above: Performed By: #### C BC #### [address] [address] HCO3 (Bld) [Moles/Vol] 31 mmol/L Normal 21 - 32 [facility] Comment on above: Performed By: #### C BC #### [address] [address] Phosphate [Mass/Vol] 4.9 mg/dL Normal 2.5 - 4.9 [facility] Comment on above: Result Comment: The performance characteristics of phosphorus testing in heparinized plasma have been validated by the individual laboratory site where testing is performed. Testing on heparinized plasma is not approved by the FDA; however, such approval is not necessary. Performed By: #### C BC #### [address] [address] Potassium [Moles/Vol] 4.0 mmol/L Normal 3.5 - 5.3 [facility] Comment on above: Performed By: #### C BC #### [address] [address] Sodium [Moles/Vol] 143 mmol/L Normal 136 - 145 [facility] Comment on above: Performed By: #### C BC #### [address] [address] Urea nitrogen [Mass/Vol] 23 mg/dL Normal 6 - 23 [facility] Comment on above: Performed By: #### C BC #### [address] [place] [address] TYPE + SCREENon 02-06-2022 ABO TYPE O Normal [facility] Comment on above: Performed By: #### T +S #### [address] [place] [address] RH TYPE Positive Normal [facility] Comment on above: Performed By: #### T +S #### [address] [place] [address] [facility] Surgical Pathology Depar tmenton 02-06-2022 [facility] Surgical Pathology Department Name YEFRI YANEZ Pathologist: CYNTHIA LOPEZ MD Date of Procedure: 02/06/2022 Date Received: 02/06/2022 Date Reported 02/19/2022 Submitting Physician: ARAVIND HERNANDEZ MD Location: [address] External # FINAL DIAGNOSIS A. KIDNEY, [...] glomerulosclerosis Vascular disease: Mild to moderate arteriosclerosis Access Specialist Blocks: Normal Block: A8 Tumor Block: A3 Electronically Signed Out By CYNTHIA LOPEZ MD/KOKO By the signature on this report, the individual or group listed as making the Final Interpretation/Diagnosis certifies that they have reviewed this case. Diagnostic interpretation performed at [facility] [address] [place] [id number] Clinical History: renal cell carcinoma Specimens Submitted [...] nodes are found. Photographs have been taken. Access Specialist sections are submitted in 8 cassettes. WXK/DJO Summary of Cassettes: Specimen Label Site A 1 ureter margin 2 vascular margins 3-4 mass in relation to lurdes-renal fat (A3 with tumor deposit in lurdes-renal fat) 5-6 mass in relation to lurdes-hilar fat 7 tumor with adjacent kidney parenchyma 8 normal kidney parenchyma djo/02/10/2022 [facility] Department of Pathology [address] [place] [id number] Normal [facility] Comment on above: Performed By: #### U [facility] #### [facility] Surgical Pathology Department [address] [facility] [address] CNPNon 02-05-2022 CNPN Normal [facility] CNPN Telephone (CARMOB) ----- YEFRI YANEZ ([id number]) 1965 M [facility] Date Time Provider Department 02/05/22 SAYRA TELLO During your visit today, we recorded the following information about you: Abbey Prescott Nash 02/05/2022 12:41 PM Signed Patient's Miya left a voicemail stating that she has questions about the patient's upcoming appointment with Dr. Tello. Please call her at [phone]. Florian Mello RN 02/09/2022 2:26 PM Signed [...] Fully Assessed Reason for Visit: Patient Question [4978] Prescriptions as of 02/17/2022 - torsemide (DEMADEX) [...] by this patient by: SPOUSE Safia Carr, [facility] Problem List As Of Date [...] Encounter Status:Closed by FLORIAN MELLO on 02/17/22 [facility] CORONAVIRUS 2019, SCREEN ASY MPTOMATICon 02-04-2022 SARS-CoV-2 (COVID-19) RNA SANDOVAL+probe Ql (Unsp spec) Not detected Normal Not Detected [facility] Comment on above: Result Comment: [...] this test method. Fact sheet for providers: https://www.fda.gov/media/012576/download Fact sheet for patients: https://www.fda.gov/media/596865/download This test has received [facility] Emergency Use Authorization (EUA) and has been verified for use by [facility] ([facility]). This test is only authorized for the duration of time that circumstances exist to justify the authorization of the emergency use of in vitro diagnostic tests for the detection of SARS-CoV-2 virus and/or diagnosis of COVID-19 infection under section 564(b)(1) of the Act, 21 U.S.C. 360bbb-3(b)(1), unless the authorization is terminated or revoked sooner. [facility] is certified under CLIA-88 as qualified to perform high complexity testing. Testing is performed in the [facility] laboratories located at [address] [place] [address]. Performed By: #### C OVSC #### [place] [address] Lab Specimen Source Nasal, Nasopharyngeal Normal [facility] Comment on above: Performed By: #### C OVSC #### [place] [address] Coronavirus 2019 RNA by PCR, Screening Asymptomticon 02-04-2022 Coronavirus 2019 RNA by PCR, Screening Asymptomtic Not detected Normal See Below IB-Pufbmxw-H yamila SJW 400 DO Work Phone: Comment [...] this test method. Fact sheet for providers: https://www.fda.gov/media/452997/download Fact sheet for patients: https://www.fda.gov/media/608848/download This test has received FDA Emergency Use Authorization (EUA) and has been verified for use by [facility] ([facility]). This test is only authorized for the duration of time that circumstances exist to justify the authorization of the emergency use of in vitro diagnostic tests for the detection of SARS-CoV-2 virus and/or diagnosis of COVID-19 infection under section 564(b)(1) of the Act, 21 U.S.C. 360bbb-3(b)(1), unless the authorization is terminated or revoked sooner.[facility] is certified under CLIA-88 as qualified to perform high complexity testing. Testing is performed in the [facility] laboratories located at [address] [place] [address]. Covid 19 Resultson 2 SARS-CoV-2 (COVID-19) RNA [...] You may also be contacted by the [facility] to see if any of your [...] or Naproxen (Aleve) can also be used. Zwwr-tez-shroudy cough and cold medicines can be used according to the instructions on the package. Some yysx-qax-pbyfgws medicines also contain acetaminophen. Make sure you [...] water are not available, use alcohol-based hand cold storage superintendent. Avoid touching your eyes, nose, and mouth [...] 24 felisa (more content not included)... Normal [facility] Chart Updateon 02-03-2022 Chart Update [...] between urology, medical oncology, radiation oncology at [facility] was local therapy to metastatic sites and cytoreductive nephrectomy. 12/08/2021-echo with EF 35%, LV and RV enlargement and hypokinesis 12/26/2021-patient completed radiation to chest wall and L4 lesion Patient has remained on cabo Patient was scheduled for nephrectomy with Dr. Adriana Hodge, due to insurance issues patient could not be operated on at [facility], referred to me for nephrectomy. 01/19/2022-patient scheduled for laparoscopic nephrectomy 02/0301/20/2022-patient presented to [place] ER with shortness of breath 01/27/2022-patient presented to [facility] with persistence of subjective dyspnea, expiratory wheezing 01/29/2022-patient represented to [place] ED with chest tightness and shortness of [...] with radiation therapy. Plan previously developed at [facility] was 4 local treatment to masses [...] Feb 03 2022 8:52AM EST (Author) Normal [employer] Absolute lymphocyte countOrd ered By: Dr. Bass on 01-29-2022 Lymphocytes Auto (Unsp spec) [#/Vol] 0.78 10*3/uL 0.83-4.51 [facility] Basophil percentageOrdered B y: Dr. Bass on 01-29-2022 Basophils/100 WBC (Bld) 0.3 % 0-1 [facility] Chloride [Moles/Vol] 102 mmol/L 98-107 [facility] Eosinophils/100 WBC (Bld) 0.1 % 0-5 [facility] Glucose [Mass/Vol] 148 mg/dL 74-106 [facility] Comment on above: Fasting Glucose resu lt greater than or equal to 126 mg/dL suggests DIABETES MELLITUS per A.D.A. criteria. Neutrophils (Bld) [#/Vol] 8.6 10*3/uL 2.0-7.7 [facility] Neutrophils/100 WBC (Bld) 85.8 % 47-70 [facility] Potassium [Moles/Vol] 3.5 mmol/L 3.5-5.1 [facility] Comment on above: Slight Hemolysis, Re sult may be falsely increased. Sodium [Moles/Vol] 142 mmol/L 136-145 [facility] WBC (Bld) [#/Vol] 10.0 10*3/uL 4.4-11.0 [facility] Blood erythrocytes count (nu mber/volume)Ordered By: Dr. Bass on 01-29-2022 RBC (Bld) [#/Vol] 4.81 10*6/uL 4.6-6.2 [facility] Blood hemoglobin measurement (mass/volume)Ordered By: Dr. Bass on 01-29-2022 Hemoglobin (Bld) [Mass/Vol] 15.0 g/dL 13.0-16.5 [facility] Blood lymphocytes/100 leukoc ytesOrdered By: Dr. Bass on 01-29-2022 Lymphocytes/100 WBC (Bld) 7.8 % 19-41 [facility] Blood monocytes/100 leukocyt esOrdered By: Dr. Bass on 01-29-2022 Monocytes/100 WBC (Bld) 4.3 % 0-10 [facility] Blood platelet mean volumeOr dered By: Dr. Bass on 01-29-2022 Platelet mean volume (Bld) [Entitic vol] 10.9 fL 6.2-12.0 [facility] Determination of erythrocyte mean corpuscular volume (MCV)Ordered By: Dr. Bass on 01-29-2022 MCV (RBC) [Entitic vol] 94.2 fL 80-94 [facility] Hematocrit Auto (Bld) [Volum e fraction]Ordered By: Dr. Bass on 01-29-2022 Hematocrit (Bld) [Volume fraction] 45.3 % 40-54 [facility] INR in Blood by Coagulation assayOrdered By: Dr. Bass on 01-29-2022 INR Coag (Bld) [Relative time] 1.2 {INR} [facility] Influenza virus A and B and SARS-CoV-2 (COVID-19) Ag panel - Upper respiratory specimOrdered By: Dr. Bass on 01-29-2022 SARS-CoV-2 (COVID-19) RNA SANDOVAL+probe Ql (Resp) [facility] Laboratory - Chemistry and C hemistry - challengeOrdered By: Dr. Bass on 01-29-2022 CO2 [Moles/Vol] 36.0 mmol/L 21.0-32.0 [facility] Natriuretic peptide B (Bld) [Mass/Vol] 378.8 pg/mL 0-100 [facility] Urea nitrogen/Creatinine [Mass ratio] 17.4 mg/mg 10-20 [facility] Laboratory - CoagulationOrde red By: Dr. Bass on 01-29-2022 PT Coag (PPP) [Time] 15.3 s 11.7-14.9 [facility] Laboratory - Hematology and Cell countsOrdered By: Dr. Bass on 01-29-2022 Erythrocyte distribution width (RBC) [Entitic vol] 55.1 fL 35.1-43.9 [facility] Erythrocyte distribution width (RBC) [Ratio] 16.4 % 11.6-14.6 [facility] Immature granulocytes/100 WBC (Bld) 1.700 % 0.0-0.9 [facility] Comment on above: IG% - Immature Granu locytes (promyelocytes, myelocytes and metamyelocytes) > 1% indicates that a LEFT SHIFT is Present. MCH (RBC) [Entitic mass] 31.2 pg 27.0-32.0 [facility] Nucleated RBC/100 WBC (Bld) [Ratio] 1.2 % 0-5 [facility] MCHC Auto (RBC) [Mass/Vol]Or dered By: Dr. Bass on 01-29-2022 MCHC (RBC) [Mass/Vol] 33.1 g/dL 32-36 [facility] No Panel InformationOrdered By: Dr. Bass on 01-29-2022 Estimated Creatinine Clearance Calc 76.27 ml/min [facility] Estimated GFR (MDRD) Amer 89 mL/min >60 [facility] Comment on above: GFR Calc Estimated GFR (MDRD) Non-Af Amer 74 mL/min >60 [facility] Comment on above: Non- GFR Calc Troponin I High Sensitivity 69 pg/mL 3.0-78.0 [facility] Comment on above: Please Note: New [place] t Units and Gender Specific Reference Ranges. For more information see Policy Stat Procedure [place] High Sensitivity Troponin (TNIH) and attachments. Platelets bldOrdered By: Dr. Bass on 01-29-2022 Platelets (Bld) [#/Vol] 166 10*3/uL 150-450 [facility] Serum or plasma calcium cory urement (mass/volume)Ordered By: Dr. Bass on 01-29-2022 Calcium [Mass/Vol] 9.0 mg/dL 8.5-10.1 [facility] Serum or plasma creatinine m easurement (mass/volume)Ordered By: Dr. Bass on 01-29-2022 Creatinine [Mass/Vol] 1.09 mg/dL 0.70-1.30 [facility] Comment on above: The validity of the calculated GFR & GFRAA in patients over 70 years has not been determined. Clinical correlation is essential. Serum or plasma urea nitroge n measurement (mass/volume)Ordered By: Dr. Bass on 01-29-2022 Urea nitrogen [Mass/Vol] 19 mg/dL 7-18 [facility] Thin prep Papanicolaou smear with manual screeningOrdered By: Dr. Bass on 01-29-2022 Thin prep Papanicolaou smear with manual screening 4 5-15 [facility] Cult, Urineon 01-27-2022 Bacteria identified Cx Nom (U) NS-Korkbnz-S [employer] 400 DO Work Phone: Laboratory - Blood bankon ABO group Nom (Bld) O MP-Ur ology-W [employer] 400 DO Work Phone: Blood group antibody screen Ql Negative TT-Ngsizmi-K [employer] 400 DO Work Phone: Rh immune globulin screen (Bld) [Interp] Positive MP-Urology -W [employer] 400 DO Work Phone: TYPE + SCREENon 01-27-2022 ABO TYPE O Normal [facility] Comment on above: Performed By: #### C BC #### [address] [place] [address] RH TYPE Positive Normal [facility] Comment on above: Performed By: #### C BC #### [address] [place] [address] URINE CULTURE,BACTERIALon URINE CULTURE,BACTERIAL PATIENT: YEFRI BREEN LOCATION: [facility]#: [id number] : 63 AGE: SEX: M ORDERED BY: ARAVIND HERNANDEZ SOURCE: URINE COLLECTED: 01/27/22 11:26 ANTIBIOTICS AT JASMIN.: RECEIVED : 01/27/22 19:27 SITE: R E S U L T S URINE CULTURE,BACTERIAL FINAL 01/28/22 12:54 NO SIGNIFICANT GROWTH. Normal [facility] Comment on above: Performed By: #### C BC #### [address] [address] CNPTOUTREACHon 01-23-2022 CNPTOUTREACH Normal [facility] Absolute lymphocyte countOrd ered By: Dr. Carvajal on 01-20-2022 Lymphocytes Auto (Unsp spec) [#/Vol] 1.04 10*3/uL 0.83-4.51 [facility] Basophil percentageOrdered B y: Dr. Carvajal on 01-20-2022 Basophils/100 WBC (Bld) 0.4 % 0-1 [facility] Chloride [Moles/Vol] 104 mmol/L 98-107 [facility] Eosinophils/100 WBC (Bld) 1.3 % 0-5 [facility] Glucose [Mass/Vol] 113 mg/dL 74-106 [facility] Comment on above: Fasting Glucose resu lt from 100 to 125 mg/dL suggests IMPAIRED HOMEOSTASIS per A.D.A. criteria. Neutrophils (Bld) [#/Vol] 3.0 10*3/uL 2.0-7.7 [facility] Neutrophils/100 WBC (Bld) 66.2 % 47-70 [facility] Potassium [Moles/Vol] 3.5 mmol/L 3.5-5.1 [facility] Comment on above: Moderate Hemolysis, Result may be falsely increased. Sodium [Moles/Vol] 142 mmol/L 136-145 [facility] WBC (Bld) [#/Vol] 4.5 10*3/uL 4.4-11.0 [facility] Blood erythrocytes count (nu mber/volume)Ordered By: Dr. Carvajal on 01-20-2022 RBC (Bld) [#/Vol] 5.09 10*6/uL 4.6-6.2 [facility] Blood hemoglobin measurement (mass/volume)Ordered By: Dr. Carvajal on 01-20-2022 Hemoglobin (Bld) [Mass/Vol] 15.6 g/dL 13.0-16.5 [facility] Blood lymphocytes/100 leukoc ytesOrdered By: Dr. Carvajal on 01-20-2022 Lymphocytes/100 WBC (Bld) 23.2 % 19-41 [facility] Blood monocytes/100 leukocyt esOrdered By: Dr. Carvajal on 01-20-2022 Monocytes/100 WBC (Bld) 8.5 % 0-10 [facility] Blood platelet mean volumeOr dered By: Dr. Carvajal on 01-20-2022 Platelet mean volume (Bld) [Entitic vol] 10.2 fL 6.2-12.0 [facility] Determination of erythrocyte mean corpuscular volume (MCV)Ordered By: Dr. Carvajal on 01-20-2022 MCV (RBC) [Entitic vol] 91.2 fL 80-94 [facility] EKGon 01-20-2022 Atrial Rate 127 BPM [facility] Calculated R [place] 80 degrees [facility] Calculated T [place] 77 degrees [facility] QRS Duration 102 ms [facility] QT Interval 366 ms [facility] QTC Calculation (Bazett) 459 ms [facility] Ventricular Rate 95 BPM [facility] Atrial fibrillation Abnormal ECG No previous ECGs available Confirmed by RAINER PRINGLE MD ([id number]) on 01/20/2022 8:35:54 AM [facility] CARD[facility] NAME : MIREYA YANEZ PID : [id number] : 1965 Gender : Male Race : ORD : Procedure Date : Jan 19 2022 11:29:03 Edit Date : Jan 20 2022 08:35:56 Diagnosis: Atrial fibrillation Abnormal ECG No previous ECGs available Confirmed by RAINER PRINGLE MD ([id number]) on 01/20/2022 8:35:54 AM Test Reason : RT Location : 18 : [facility] Overread By : RAINER PRINGLE MD Edited By : RAINER PRINGLE MD Referred By : KITTY VALDEZ Acquired by : MARCELINO CRAIN [facility] Hematocrit Auto (Bld) [Volum e fraction]Ordered By: Dr. Carvajal on 01-20-2022 Hematocrit (Bld) [Volume fraction] 46.4 % 40-54 [facility] INR in Blood by Coagulation assayOrdered By: Dr. Carvajal on 01-20-2022 INR Coag (Bld) [Relative time] 1.5 {INR} [facility] Influenza virus A and B and SARS-CoV-2 (COVID-19) Ag panel - Upper respiratory specimOrdered By: Dr. Carvajal on 01-20-2022 SARS-CoV-2 (COVID-19) RNA SANDOVAL+probe Ql (Resp) [facility] Laboratory - Chemistry and C hemistry - challengeOrdered By: Dr. Carvajal on 01-20-2022 CO2 [Moles/Vol] 30.0 mmol/L 21.0-32.0 [facility] Natriuretic peptide B (Bld) [Mass/Vol] 272.4 pg/mL 0-100 [facility] Urea nitrogen/Creatinine [Mass ratio] 12.7 mg/mg 10-20 [facility] - CoagulationOrde red By: Dr. Carvajal on 01-20-2022 PT Coag (PPP) [Time] 17.4 s 11.7-14.9 [facility] Laboratory - Hematology and Cell countsOrdered By: Dr. Carvajal on 01-20-2022 Erythrocyte distribution width (RBC) [Entitic vol] 52.1 fL 35.1-43.9 [facility] Erythrocyte distribution width (RBC) [Ratio] 15.9 % 11.6-14.6 [facility] Immature granulocytes/100 WBC (Bld) 0.400 % 0.0-0.9 [facility] Comment on above: IG% - Immature Granu locytes (promyelocytes, myelocytes and metamyelocytes) > 1% indicates that a LEFT SHIFT is Present. MCH (RBC) [Entitic mass] 30.6 pg 27.0-32.0 [facility] Nucleated RBC/100 WBC (Bld) [Ratio] 0 % 0-5 [facility] MCHC Auto (RBC) [Mass/Vol]Or dered By: Dr. Carvajal on 01-20-2022 MCHC (RBC) [Mass/Vol] 33.6 g/dL 32-36 [facility] No Panel InformationOrdered By: Dr. Carvajal on 01-20-2022 Estimated Creatinine Clearance Calc 75.58 ml/min [facility] Estimated GFR (MDRD) Amer 88 mL/min >60 [facility] Comment on above: GFR Calc Estimated GFR (MDRD) Non-Af Amer 73 mL/min >60 [facility] Comment on above: Non- GFR Calc Troponin I High Sensitivity 58 pg/mL 3.0-78.0 [facility] Comment on above: Please Note: New [place] t Units and Gender Specific Reference Ranges. For more information see Policy Stat Procedure [place] High Sensitivity Troponin (TNIH) and attachments. Platelets bldOrdered By: Dr. Carvajal on 01-20-2022 Platelets (Bld) [#/Vol] 180 10*3/uL 150-450 [facility] Serum or plasma calcium cory urement (mass/volume)Ordered By: Dr. Carvajal on 01-20-2022 Calcium [Mass/Vol] 8.8 mg/dL 8.5-10.1 [facility] Serum or plasma creatinine m easurement (mass/volume)Ordered By: Dr. Carvajal on 01-20-2022 Creatinine [Mass/Vol] 1.10 mg/dL 0.70-1.30 [facility] Comment on above: The validity of the calculated GFR & GFRAA in patients over 70 years has not been determined. Clinical correlation is essential. Serum or plasma urea nitroge n measurement (mass/volume)Ordered By: Dr. Carvajal on 01-20-2022 Urea nitrogen [Mass/Vol] 14 mg/dL 7-18 [facility] Thin prep Papanicolaou smear with manual screeningOrdered By: Dr. Carvajal on 01-20-2022 Thin prep Papanicolaou smear with manual screening 8 07-20 [facility] CNCOon 01-19-2022 CNCO Letter Text Normal [facility] EKGon 01-19-2022 Electrocardiogram Ventricular Rate : 9 5 BPM Atrial Rate : 127 BPM QRS Duration : 102 ms Q-T Interval : 366 ms QTC Calculation(Bazett) : 459 ms Calculated R [place] : 80 degrees Calculated T [place] : 77 degrees Atrial fibrillation Abnormal ECG No previous ECGs available Confirmed by RAINER PRINGLE MD ([id number]) on 01/20/2022 8:35:54 AM NAME : YEFRI YANEZ PID : [id number] : 1965 Gender : Male Race : ORD : Procedure Date : Jan 19 2022 11:29:03 Edit Date : Jan 20 2022 08:35:56 Diagnosis: Atrial fibrillation Abnormal ECG No previous ECGs available Confirmed by RAINER PRINGLE MD ([id number]) on 01/20/2022 8:35:54 AM Test Reason : RT Location : 18 : [facility] Overread By : RAINER PRINGLE MD Edited By : RAINER PRINGLE MD Referred By : KITTY VALDEZ Acquired by : MARCELINO CRAIN [facility] XR CHEST 2V FRONTAL/LATon XR CHEST [...] Right chest wall mass is grossly stable. 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: DANITZA Transcribe Date/Time: Nov 14 2022 11:14A Dictated by : LUMA SHANKS MD This examination was interpreted and the report reviewed and electronically signed by: LUMA SHANKS MD on Jan 19 2022 11:15AM EST [id number]-27[facility] YEFRI YANE[facility] ([id number]) 1965 M [facility] Date Time Provider Department 12/25/21 MIKAL MORRIS During your visit today, we recorded the following information about you: Abbey Nash 12/25/2021 7:45 AM Signed 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 Patient's insurance changed was seen at main [place] but now that location is out of [...] by this patient by: SPOUSE Safia Carr [facility] Problem List As Of Date [...] Encounter Status:Closed by ADRIENNE BEACH on 12/25/21 [facility] Absolute lymphocyte counton 12-09-2021 Lymphocytes Auto (Unsp spec) [#/Vol] 1.42 10*3/uL 0.83-4.51 [facility] Work Phone: Basophil percentageon 2021 Basophil percentage 3.9 mg/dL 2.5-4.9 [facility]: Basophils/100 WBC (Bld) 0.5 % 0-1 [facility] Work Phone: Chloride [Moles/Vol] 109 mmol/L 98-107 [facility] Work Phone: Eosinophils/100 WBC (Bld) 1.5 % 0-5 [facility] Work Phone: Glucose [Mass/Vol] 121 mg/dL 74-106 [facility] Work Phone: Comment on above: Fasting Glucose resu lt from 100 to 125 mg/dL suggests IMPAIRED HOMEOSTASIS per A.D.A. criteria. Neutrophils (Bld) [#/Vol] 4.0 10*3/uL 2.0-7.7 [facility] Work Phone: Neutrophils/100 WBC (Bld) 67.8 % 47-70 [facility] Work Phone: Potassium [Moles/Vol] 3.8 mmol/L 3.5-5.1 [facility] Work Phone: [phone] Sodium [Moles/Vol] 142 mmol/L 136-145 [facility] r [facility] Work Phone: [phone] WBC (Bld) [#/Vol] 5.9 10*3/uL 4.4-11.0 [facility] Work Phone: Blood erythrocytes count (nu mber/volume)on 12-09-2021 RBC (Bld) [#/Vol] 5.22 10*6/uL 4.6-6.2 [facility] Work Phone: [phone] Blood hemoglobin measurement (mass/volume)on 12-09-2021 Hemoglobin (Bld) [Mass/Vol] 16.0 g/dL 13.0-16.5 [facility] Work Phone: Blood lymphocytes/100 leukoc yteson 12-09-2021 Lymphocytes/100 WBC (Bld) 24.1 % 19-41 [facility] Work Phone: Blood monocytes/100 leukocyt eson 12-09-2021 Monocytes/100 WBC (Bld) 5.8 % 0-10 [facility] Work Phone: [phone] Blood platelet mean volumeon 12-09-2021 Platelet mean volume (Bld) [Entitic vol] 11.1 fL 6.2-12.0 [facility] Work Phone: CNOVon 12-09-2021 CNOV Office Visit (MEMEC ) ----- YEFRI YANEZ ([id number]) 1965 M [facility] Date Time Provider Department 12/09/21 10:00 [...] He was evaluated in the ER at [facility]. As part of his work-up a [...] acute dist (more content not included)... Normal [facility] Determination of erythrocyte mean corpuscular volume (MCV)on 12-09-2021 MCV (RBC) [Entitic vol] 90.6 fL 80-94 [facility] Work Phone: [phone] Hematocrit Auto (Bld) [Volum e fraction]on 12-09-2021 Hematocrit (Bld) [Volume fraction] 47.3 % 40-54 [facility] Work Phone: [phone] INR in Blood by Coagulation assayon 12-09-2021 INR Coag (Bld) [Relative time] 2.4 {INR} [facility] Work Phone: [phone] Laboratory - Chemistry and C hemistry - challengeon 12-09-2021 CO2 [Moles/Vol] 26.0 mmol/L 21.0-32.0 [facility] Work Phone: [phone] Magnesium [Mass/Vol] 1.9 mg/dL 1.6-2.6 [facility] Work Phone: [phone] Urea nitrogen/Creatinine [Mass ratio] 15.0 mg/mg 10-20 [facility] Work Phone: [phone] Laboratory - Coagulationon 1 PT Coag (PPP) [Time] 25.6 s 11.7-14.9 [facility] Work Phone: [phone] Laboratory - Hematology and Cell countson 12-09-2021 Erythrocyte distribution width (RBC) [Entitic vol] 54.5 fL 35.1-43.9 [facility] Work Phone: [phone] Erythrocyte distribution width (RBC) [Ratio] 16.5 % 11.6-14.6 [facility] Work Phone: [phone] Immature granulocytes/100 WBC (Bld) 0.300 % 0.0-0.9 [facility] Work Phone: [phone] Comment on above: IG% - Immature Granu locytes (promyelocytes, myelocytes and metamyelocytes) > 1% indicates that a LEFT SHIFT is Present. MCH (RBC) [Entitic mass] 30.7 pg 27.0-32.0 [facility] Work Phone: Nucleated RBC/100 WBC (Bld) [Ratio] 0 % 0-5 [facility] Work Phone: MCHC Auto (RBC) [Mass/Vol]on 12-09-2021 MCHC (RBC) [Mass/Vol] 33.8 g/dL 32-36 [facility] Work Phone: No Panel Informationon 12-09 Estimated Creatinine Clearance Calc 74.47 ml/min [facility] Work Phone: Estimated GFR (MDRD) Amer 86 mL/min >60 [facility] Work Phone: Comment on above: GFR Calc Estimated GFR (MDRD) Non-Af Amer 71 mL/min >60 [facility] Work Phone: Comment on above: Non- GFR Calc Platelets bldon 12-09-2021 Platelets (Bld) [#/Vol] 243 10*3/uL 150-450 [facility] Work Phone: Serum or plasma calcium cory urement (mass/volume)on 12-09-2021 Calcium [Mass/Vol] 9.0 mg/dL 8.5-10.1 [facility] Work Phone: Serum or plasma creatinine m easurement (mass/volume)on 12-09-2021 Creatinine [Mass/Vol] 1.13 mg/dL 0.70-1.30 [facility] Work Phone: Comment on above: The validity of the calculated GFR & GFRAA in patients over 70 years has not been determined. Clinical correlation is essential. Serum or plasma urea nitroge n measurement (mass/volume)on 12-09-2021 Urea nitrogen [Mass/Vol] 17 mg/dL 7-18 [facility] Work Phone: Telephone Encounteron 2021 [employer] Authentication Interface Message Text Patient unable to contact No voicemail to return call Invalid Number Letter sent CALI May Blind Installer [facility] [address] [place] [address] [place] [address] [email or web address] Normal [facility] Thin prep Papanicolaou smear with manual screeningon 12-09-2021 Thin prep Papanicolaou smear with manual screening 7 5-15 [facility] Work Phone: Absolute lymphocyte counton 12-07-2021 Lymphocytes Auto (Unsp spec) [#/Vol] 1.42 10*3/uL 0.83-4.51 [facility] Work Phone: Basophil percentageon 2021 Basophils/100 WBC (Bld) 0.5 % 0-1 [facility] Work Phone: Chloride [Moles/Vol] 108 mmol/L 98-107 [facility] Work Phone: Eosinophils/100 WBC (Bld) 0.7 % 0-5 [facility] Work Phone: Glucose [Mass/Vol] 135 mg/dL 74-106 [facility] Work Phone: Comment on above: Fasting Glucose resu lt greater than or equal to 126 mg/dL suggests DIABETES MELLITUS per A.D.A. criteria. Neutrophils (Bld) [#/Vol] 4.3 10*3/uL 2.0-7.7 [facility] Work Phone: Neutrophils/100 WBC (Bld) 70.8 % 47-70 [facility] Work Phone: Potassium [Moles/Vol] 3.5 mmol/L 3.5-5.1 [facility] Work Phone: Sodium [Moles/Vol] 142 mmol/L 136-145 [facility] Work Phone: WBC (Bld) [#/Vol] 6.1 10*3/uL 4.4-11.0 [facility] Work Phone: Blood erythrocytes count (nu mber/volume)on 12-07-2021 RBC (Bld) [#/Vol] 5.15 10*6/uL 4.6-6.2 [facility] Work Phone: Blood hemoglobin measurement (mass/volume)on 12-07-2021 Hemoglobin (Bld) [Mass/Vol] 16.0 g/dL 13.0-16.5 [facility] Work Phone: Blood lymphocytes/100 leukoc yteson 12-07-2021 Lymphocytes/100 WBC (Bld) 23.4 % 19-41 [facility] Work Phone: [phone] Blood monocytes/100 leukocyt eson 12-07-2021 Monocytes/100 WBC (Bld) 4.3 % 0-10 [facility] Work Phone: Blood platelet mean volumeon 12-07-2021 Platelet mean volume (Bld) [Entitic vol] 11.0 fL 6.2-12.0 [facility] Work Phone: Determination of erythrocyte mean corpuscular volume (MCV)on 12-07-2021 MCV (RBC) [Entitic vol] 90.5 fL 80-94 [facility] Work Phone: Hematocrit Auto (Bld) [Volum e fraction]on 12-07-2021 Hematocrit (Bld) [Volume fraction] 46.6 % 40-54 [facility] Work Phone: INR in Blood by Coagulation assayon 12-07-2021 INR Coag (Bld) [Relative time] 1.7 {INR} [facility] Work Phone: Laboratory - Chemistry and C hemistry - challengeon 12-07-2021 CO2 [Moles/Vol] 25.0 mmol/L 21.0-32.0 [facility] Work Phone: Natriuretic peptide B (Bld) [Mass/Vol] 686.4 pg/mL 0-100 [facility] Work Phone: Urea nitrogen/Creatinine [Mass ratio] 15.7 mg/mg 10-20 [facility] Work Phone: Laboratory - Coagulationon 1 PT Coag (PPP) [Time] 19.3 s 11.7-14.9 [facility] Work Phone: [phone] Laboratory - Hematology and Cell countson 12-07-2021 Erythrocyte distribution width (RBC) [Entitic vol] 54.9 fL 35.1-43.9 [facility] Work Phone: [phone] Erythrocyte distribution width (RBC) [Ratio] 16.5 % 11.6-14.6 [facility] Work Phone: [phone] Immature granulocytes/100 WBC (Bld) 0.300 % 0.0-0.9 [facility] Work Phone: [phone] Comment on above: IG% - Immature Granu locytes (promyelocytes, myelocytes and metamyelocytes) > 1% indicates that a LEFT SHIFT is Present. MCH (RBC) [Entitic mass] 31.1 pg 27.0-32.0 [facility] Work Phone: [phone] Nucleated RBC/100 WBC (Bld) [Ratio] 0 % 0-5 [facility] Work Phone: [phone] MCHC Auto (RBC) [Mass/Vol]on 12-07-2021 MCHC (RBC) [Mass/Vol] 34.3 g/dL 32-36 [facility] Work Phone: No Panel Informationon 12-07 Troponin I High Sensitivity 46 pg/mL 3.0-78.0 [facility] Work Phone: Comment on above: Please Note: New [place] t Units and Gender Specific Reference Ranges. For more information see Policy Stat Procedure [place] High Sensitivity Troponin (TNIH) and attachments. Estimated Creatinine Clearance Calc 66.26 ml/min [facility] Work Phone: [phone] Estimated GFR (MDRD) Amer 75 mL/min >60 [facility] Work Phone: [phone] Comment on above: GFR Calc Estimated GFR (MDRD) Non-Af Amer 62 mL/min >60 [facility] Work Phone: [phone] Comment on above: Non- GFR Calc Troponin I High Sensitivity 45 pg/mL 3.0-78.0 [facility] Work Phone: [phone] Comment on above: Please Note: New [place] t Units and Gender Specific Reference Ranges. For more information see Policy Stat Procedure [place] High Sensitivity Troponin (TNIH) and attachments. Platelets bldon 12-07-2021 Platelets (Bld) [#/Vol] 231 10*3/uL 150-450 [facility] Work Phone: Serum or plasma calcium cory urement (mass/volume)on 12-07-2021 Calcium [Mass/Vol] 9.6 mg/dL 8.5-10.1 [facility] Work Phone: Serum or plasma creatinine m easurement (mass/volume)on 12-07-2021 Creatinine [Mass/Vol] 1.27 mg/dL 0.70-1.30 [facility] Work Phone: Comment on above: The validity of the calculated GFR & GFRAA in patients over 70 years has not been determined. Clinical correlation is essential. Serum or plasma urea nitroge n measurement (mass/volume)on 12-07-2021 Urea nitrogen [Mass/Vol] 20 mg/dL 7-18 [facility] Work Phone: Thin prep Papanicolaou smear with manual screeningon 12-07-2021 Thin prep Papanicolaou smear with manual screening 9 5-15 [facility] Work Phone[facility] Normal [facility] 11-29-2021 [facility] Normal [facility] 11-24-2021 [facility] Telephone ([facility]) ----- YEFRI YANEZ ([id number]) 1965 M [facility] Date Time Provider Department 11/24/21 AMERICA SCHWARTZ [facility] During your visit today, we recorded [...] by this patient by: SPOUSE Safia Carr [facility] Problem List As Of Date [...] Encounter Status:Closed by AMERICA SCHWARTZ on 11/25/21 [facility] CNPNon 11-23-2021 CNPN Normal [facility] CT ABD/PEL W IVCONon 022 CT ABD/PEL W IVCON Normal [facility] CT CHEST W IVCONon 2 CT CHEST W IVCON Normal [facility] No Panel Informationon 11-20 [facility] CNOVSPon 11-19-2021 CNOVSP Visit (SP) Office ([facility]) ----- YEFRI YANEZ ([id number]) 1965 M [facility] Date Time Provider Department 11/19/21 9:00 AM HAYLEE WILBURN [facility] During your visit today, we recorded the following information about you: Pulse Respiration Blood pressure Weight 76/minute 18/minute 130/82 118.8 kg Height 1.778 m [place] 11/19/2021 9:58 AM Signed This note was created using [employer]. Subjective Yefri Yanez is a 56 year [...] Haylee Wilburn MD 11/19/2021 9:58 AM Signed [facility] Progress Note SERVICE DATE: November 19, [...] started treatment with cabo + nivo on [facility] 1820 Trial on 08/08/2021 at [facility]. He has baseline HTN and developed worsening HTN after starting treatment. His cabo was held on 08/18/2021, resumed on 09/11/2021. The Nivo was held on 09/11/21 due to pneumonitis, and prednisone 60 mg daily was started and tapered off within about one month. Due to insurance change, he was taken off the trial and referred to [facility] Oncology to resume the treatment. He [...] Rhythm: No (more content not included)... Normal [facility] 11-06-2021 [facility] Telephone ([facility]) ----- YEFRI YANEZ ([id number]) 1965 M [facility] Date Time Provider Department 11/06/21 HAYLEE WILBURN [facility] During your visit today, we recorded the following information about you: Tania Parekh RN 11/06/2021 9:32 AM Signed Spoke with leasing representative from [employer], she is asking that we reach out [...] by this patient by: SPOUSE Safia Carr, [facility] Problem List As Of Date [...] Encounter Status:Closed by TANIA PAREKH on 11/06/21 [facility] CNPN Telephone ([facility]) ----- YEFRI YANEZ ([id number]) 1965 M [facility] Date Time Provider Department 11/06/21 AMERICA SCHWARTZ [facility] During your visit today, we recorded [...] PA-C - Fully Assessed Reason for Visit: Hat [employer]ovator - Other [3602] Cmt: Calling to get [...] by this patient by: SPOUSE Safia Carr [facility] Problem List As Of Date [...] Encounter Status:Closed by AMERICA SCHWARTZ on 11/06/21 [facility] Dougie 11-03-2021 [facility] Telephone ([facility]) ----- YEFRI YANEZ ([id number]) 1965 M [facility] Date Time Provider Department 11/03/21 HAYLEE WILBURN [facility] During your visit today, we recorded [...] by this patient by: SPOUSE Safia Carr, [facility] Problem List As Of Date [...] Encounter Status:Closed by AMERICA SCHWARTZ on [facility]03/21 [facility] ----- YEFRI YANEZ ([id number]) 1965 M [facility] Date Time Provider Department 11/03/21 HAYLEE WILBURN [facility] During your visit today, we recorded [...] by this patient by: SPOUSE Safia Carr, [facility] Problem List As Of Date [...] Encounter Status:Closed by AMERICA SCHWARTZ on 11/03/21 [facility] CBC W Auto Differential pane l (Bld)on 10-27-2021 Basophils (Bld) [#/Vol] 0.03 10*3/uL Normal <0.11 [facility] Comment on above: Order Comment: Speci men Type: BLOOD SPECIMENOrdering Facility: [facility] Address: [address] [place] [address] [place] [address] Performed By: #### 5 7021-8 ####[facility] LABCLIA [id number] [place] [address] [place] Basophils/100 WBC (Bld) 0.6 % Normal [facility] Comment on above: Order Comment: Speci men Type: BLOOD SPECIMENOrdering Facility: [facility] Address: [address] [place] [address] Performed By: #### 5 7021-8 ####[facility] LABCLIA [id number] [place] [address] [place] Differential cell count method Nom (Bld) Auto Normal [facility] Comment on above: Order Comment: Speci men Type: BLOOD SPECIMENOrdering Facility: [facility] Address: [address] [place] [address] Performed By: #### 5 7021-8 ####[facility] LABCLIA [id number] [place] [address] [place] Eosinophils (Bld) [#/Vol] 0.03 10*3/uL Normal <0.46 [facility] Comment on above: Order Comment: Speci men Type: BLOOD SPECIMENOrdering Facility: [facility] Address: [address] [place], [place] [id number] Performed By: #### 5 7021-8 ####[facility] LABCLIA [id number] [address] STATES OF [facility] Eosinophils/100 WBC (Bld) 0.6 % Normal [facility] Comment on above: Order Comment: Speci men Type: BLOOD SPECIMENOrdering Facility: [facility] Address: [address] [place], [place] [id number] Performed By: #### 5 7021-8 ####[facility] LABCLIA [id number] [place] [address] [place] Erythrocyte distribution width (RBC) [Ratio] 16.6 % High 11.5-15.0 [facility] Comment on above: Order Comment: Speci men Type: BLOOD SPECIMENOrdering Facility: [facility] Address: [address] [place], [place] [address] Performed By: #### 5 7021-8 ####[facility] LABIA [id number] [address] OF [facility] Hematocrit (Bld) [Volume fraction] 48.6 % Normal 39.0-51.0 [facility] Comment on above: Order Comment: Speci men Type: BLOOD SPECIMENOrdering Facility: [facility] Address: [address] [place], [place] [address] Performed By: #### 5 7021-8 ####[facility] LABIA [id number] [address] Hemoglobin (Bld) [Mass/Vol] 16.3 g/dL Normal 13.0-17.0 [facility] Comment on above: Order Comment: Speci men Type: BLOOD SPECIMENOrdering Facility: [facility] Address: [address] [place], [place] [address] Performed By: #### 5 7021-8 ####[facility] LABIA [id number] [address] OF POP IMMATURE GRAN % 0.8 % Normal [facility] Comment on above: Order Comment: Speci men Type: BLOOD SPECIMENOrdering Facility: [facility] Address: [address] [place], [place] [address] Performed By: #### 5 7021-8 ####[facility] LABIA [id number] [address] OF POP IMMATURE GRAN ABS 0.04 k/uL Normal <0.10 [facility] Comment on above: Order Comment: Speci men Type: BLOOD SPECIMENOrdering Facility: [facility] Address: [address] [place], [place] [address] Performed By: #### 5 7021-8 ####[facility] LABIA [id number] [place] [address] [place] Lymphocytes (Bld) [#/Vol] 1.62 10*3/uL Normal 1.00-4.00 [facility] Comment on above: Order Comment: Speci men Type: BLOOD SPECIMENOrdering Facility: [facility] Address: [address] [place] [address] Performed By: #### 5 7021-8 ####[facility] LABIA [id number] [place] [address] [place] Lymphocytes/100 WBC (Bld) 32.0 % Normal [facility] Comment on above: Order Comment: Speci men Type: BLOOD SPECIMENOrdering Facility: [facility] Address: [address] [place] [address] Performed By: #### 5 7021-8 ####[facility] [id number] [place] [address] [place] MCH (RBC) [Entitic mass] 30.0 pg Normal 26.0-34.0 [facility] [place] Comment on above: Order Comment: Speci men Type: BLOOD SPECIMENOrdering Facility: [facility] Address: [address] [place] [address] Performed By: #### 5 7021-8 ####[facility] LABIA [id number] [place] [address] [place] MCHC (RBC) [Mass/Vol] 33.5 g/dL Normal 30.5-36.0 [facility] Comment on above: Order Comment: Speci men Type: BLOOD SPECIMENOrdering Facility: [facility] Address: [address] [place], [place] [address] Performed By: #### 5 7021-8 ####[facility] LABIA [id number] [place] [address] [place] MCV (RBC) [Entitic vol] 89.3 fL Normal 80.0-100.0 C [facility] Comment on above: Order Comment: Speci men Type: BLOOD SPECIMENOrdering Facility: [facility] Address: [address] [place] [address] Performed By: #### 5 7021-8 ####[facility] LABCLIA [id number] [place] [address] [place] Monocytes (Bld) [#/Vol] 0.44 10*3/uL Normal <0.87 [facility] Comment on above: Order Comment: Speci men Type: BLOOD SPECIMENOrdering Facility: [facility] Address: [address] [place], [place] [address] Performed By: #### 5 7021-8 ####[facility] LABCLIA [id number] [place] [address] [place] Monocytes/100 WBC (Bld) 8.7 % Normal C [facility] Comment on above: Order Comment: Speci men Type: BLOOD SPECIMENOrdering Facility: [facility] Address: [address] [place], [place] [address] Performed By: #### 5 7021-8 ####[facility] LABCLIA [id number] [place] [address] [place] Neutrophils (Bld) [#/Vol] 2.90 10*3/uL Normal 1.45-7.50 [facility] Comment on above: Order Comment: Speci men Type: BLOOD SPECIMENOrdering Facility: [facility] Address: [address] [place], [place] [address] Performed By: #### 5 7021-8 ####[facility] LABCLIA [id number] [place] [address] [place] Neutrophils/100 WBC (Bld) 57.3 % Normal [facility] Comment on above: Order Comment: Speci men Type: BLOOD SPECIMENOrdering Facility: [facility] Address: [address] [place] [address] Performed By: #### 5 7021-8 ####[facility] LABCLIA [id number] [place] [address] [place] Nucleated RBC (Bld) [#/Vol] 10*3/uL Normal <0.01 [facility] Comment on above: Order Comment: Speci men Type: BLOOD SPECIMENOrdering Facility: [facility] Address: [address] [place] [address] Performed By: #### 5 7021-8 ####[facility] LABIA [id number] [place] [address] [place] Nucleated RBC/100 WBC (Bld) [Ratio] 0.0 /100 WBC Normal [facility] Comment on above: Order Comment: Speci men Type: BLOOD SPECIMENOrdering Facility: [facility] Address: [address] [place] [address] Performed By: #### 5 7021-8 ####[facility] LABIA [id number] [place] [address] [place] Platelet mean volume (Bld) [Entitic vol] 10.6 fL Normal 9.0-12.7 [facility] Comment on above: Order Comment: Speci men Type: BLOOD SPECIMENOrdering Facility: [facility] Address: [address] [place] [address] Performed By: #### 5 7021-8 ####[facility] LABCLIA [id number] [place] [address] [place] Platelets (Bld) [#/Vol] 237 10*3/uL Normal 150-400 [facility] Comment on above: Order Comment: Speci men Type: BLOOD SPECIMENOrdering Facility: [facility] Address: [address] [place] [address] Performed By: #### 5 7021-8 ####[facility] LABCLIA [id number] [place] [address] [place] RBC (Bld) [#/Vol] 5.44 10*6/uL Normal 4.20-6.00 [facility] Comment on above: Order Comment: Speci men Type: BLOOD SPECIMENOrdering Facility: [facility] Address: [address] [place], [place] [address] Performed By: #### 5 7021-8 ####[facility] LABCLIA [id number] [place] [address] [place] WBC (Bld) [#/Vol] 5.06 10*3/uL Normal 3.70-11.00 [facility] Comment on above: Order Comment: Speci men Type: BLOOD SPECIMENOrdering Facility: [facility] Address: [address] [place] [address] Performed By: #### 5 7021-8 ####[facility] LABCLIA [id number] [place] [address] [place] CNPNon 10-27-2021 CNPN Normal [facility] CONFIRM BLOOD TYPEon 022 ABO O Normal [facility] Comment on above: Order Comment: Speci men Type: BLOOD SPECIMENOrdering Facility: [facility] Address: [address] [place], [place] [address] Performed By: #### C ONABO ####[facility] BLOOD BANKCLIA [id number] [place] [address] [place] Rh Nom (Bld) Positive Normal [facility] Comment on above: Order Comment: Speci men Type: BLOOD SPECIMENOrdering Facility: [facility] Address: [address] [place] [address] Performed By: #### C ONABO ####[facility] BLOOD BANKCLIA [id number] [place] [address] [place] Comprehensive metabolic 2000 panelon 10-27-2021 Albumin [Mass/Vol] 3.8 g/dL Low 3.9-4.9 [facility] Comment on above: Order Comment: Speci men Type: BLOOD SPECIMENOrdering Facility: [facility] Address: [address] [place] [address] Performed By: #### 2 4323-8, 3016-3 ####[facility] LABCLIA [id number] [place] [address] [place] ALP [Catalytic activity/Vol] 54 U/L Normal 38-113 [facility] Comment on above: Order Comment: Speci men Type: BLOOD SPECIMENOrdering Facility: [facility] Address: [address] [place], [place] [address] Performed By: #### 2 4323-8, 6-3 ####[facility] LABCLIA [id number] [address] [place] ALT [Catalytic activity/Vol] 20 U/L Normal 10-54 [facility] Comment on above: Order Comment: Speci men Type: BLOOD SPECIMENOrdering Facility: [facility] Address: [address] [place], [place] [address] Performed By: #### 2 4323-8, 6-3 ####[facility] LABCLIA [id number] [place] [address] [place] Anion gap [Moles/Vol] 11 mmol/L Normal 9-18 [facility] Comment on above: Order Comment: Speci men Type: BLOOD SPECIMENOrdering Facility: [facility] Address: [address] [place], [place] [address] Performed By: #### 2 4323-8, 3016-3 ####[facility] LABCLIA [id number] [place] [address] [place] AST [Catalytic activity/Vol] 22 U/L Normal 14-40 [facility] Comment on above: Order Comment: Speci men Type: BLOOD SPECIMENOrdering Facility: [facility] Address: [address] [place] [address] Performed By: #### 2 4323-8, 3016-3 ####[facility] LABCLIA [id number] [place] [address] [place] Bilirubin [Mass/Vol] 0.5 mg/dL Normal 0.2-1.3 [facility] Comment on above: Order Comment: Speci men Type: BLOOD SPECIMENOrdering Facility: [facility] Address: [address] [place] [address] Performed By: #### 2 4323-8, 6-3 ####[facility] LABIA [id number] [place] [address] [place] Calcium [Mass/Vol] 9.6 mg/dL Normal 8.5-10.2 [facility] Comment on above: Order Comment: Speci men Type: BLOOD SPECIMENOrdering Facility: [facility] Address: [address] [place] [address] Performed By: #### 2 4323-8, 6-3 ####[facility] LABIA [id number] [place] [address] [place] Chloride [Moles/Vol] 101 mmol/L Normal 97-105 [facility] Comment on above: Order Comment: Speci men Type: BLOOD SPECIMENOrdering Facility: [facility] Address: [address] [place] [address] Performed By: #### 2 4323-8, 6-3 ####[facility] LABCLIA [id number] [place] [id number] [place] CO2 [Moles/Vol] 28 mmol/L Normal 22-30 [facility] Comment on above: Order Comment: Speci men Type: BLOOD SPECIMENOrdering Facility: [facility] Address: [address] [place] [address] Performed By: #### 2 4323-8, 3016-3 ####[facility] LABCLIA [id number] [place] [address] [place] [facility] Creatinine [Mass/Vol] 1.07 mg/dL Normal 0.73-1.22 [facility] Comment on above: Order Comment: Speci men Type: BLOOD SPECIMENOrdering Facility: [facility] Address: [address] [place] [address] Performed By: #### 2 4323-8, 3016-3 ####[facility] LABIA [id number] [place] [address] [place] ESTIMATED GLOMERULAR FILTRATION RATE 81 mL/min/1.73m??? Normal >=60 [facility] Comment on above: Order Comment: Speci men Type: BLOOD SPECIMENOrdering Facility: [facility] Address: [address] [place] [address] Result Comment: Laurita mated Glomerular Filtration Rate [...] GFR. Performed By: #### 2 4323-8, 6-3 ####[facility] LABIA [id number] [place] [address] [place] Glucose [Mass/Vol] 111 mg/dL High 74-99 [facility] Comment on above: Order Comment: Speci men Type: BLOOD SPECIMENOrdering Facility: [facility] Address: [address] [place] [address] Result Comment: The [place] [employer] (ADA) provides guidance for cutoff [...] Standards of Medical Care in Diabetes 2016, [place] [employer]. Diabetes Care. 2016.39(Suppl 1). Performed By: #### 2 4323-8, 6-3 ####[facility] LABCLIA [id number] [place] [address] [place] Potassium [Moles/Vol] 3.5 mmol/L Low 3.7-5.1 [facility] Comment on above: Order Comment: Speci men Type: BLOOD SPECIMENOrdering Facility: [facility] Address: [address] [place] [address] Performed By: #### 2 43205-13, 3015-3 ####[facility] LABCLIA [id number] [place] [address] [place] Protein [Mass/Vol] 6.8 g/dL Normal 6.3-8.0 [facility] Comment on above: Order Comment: Speci men Type: BLOOD SPECIMENOrdering Facility: [facility] Address: [address] [place] [address] Performed By: #### 2 4328, 3015-3 ####[facility] LABCLIA [id number] [place] [address] [place] Sodium [Moles/Vol] 140 mmol/L Normal 136-144 [facility] Comment on above: Order Comment: Speci men Type: BLOOD SPECIMENOrdering Facility: [facility] Address: [address] [place], [place] [address] Performed By: #### 2 4323-8, 6-3 ####[facility] LABCLIA [id number] [place] [id number] [place] Urea nitrogen [Mass/Vol] 9 mg/dL Normal 9-24 [facility] Comment on above: Order Comment: Spectricia gibson Type: BLOOD SPECIMENOrdering Facility: [facility] Address: [address] [place] [address] Performed By: #### 2 4323-8, 3016-3 ####[facility] LABCLIA [id number] [place] [address] [place] ECG COMPLETEon 10-27-2021 ECG COMPLETE Normal [facility] HISTORY PHYSICALon 2 HISTORY PHYSICAL Normal [facility] PT panel Coag (PPP)on 2021 INR Coag (PPP) [Relative time] 2.2 {INR} High 0.9-1.3 [facility] Comment on above: Order Comment: Aaliyah gibson Type: BLOOD SPECIMENOrdering Facility: [facility] Address: [address] [place] [address] Result Comment: Constanza min K Antagonist (VKA) Therapeutic Range: INR 2 to 3 (Target INR of 2.5)Note: For patients treated with VKA drugs, such as warfarin, the [place] [employer] 2012 Guideline recommends [...] 70: 252-289 Performed By: #### 3 4528-0, 97599-9 ####[facility] LABCLIA [id number] [place] [address] [place] PT Coag (PPP) [Time] 22.4 s High 9.7-13.0 [facility] Comment on above: Order Comment: Speci men Type: BLOOD SPECIMENOrdering Facility: [facility] Address: [address] [place] [address] Performed By: #### 3 4528-0, 23316-8 ####[facility] LABCLIA [id number] [address] OF [facility] TSH SerPl-aCncon 10-27-2021 TSH Qn 1.530 m[IU]/L Normal 0.270-4.20 0 [facility] Comment on above: Order Comment: Speci men Type: BLOOD SPECIMENOrdering Facility: [facility] Address: [address] [place] [address] Performed By: #### 2 4323-8, 3016-3 ####[facility] LABCLIA [id number] [address] OF [facility] TYPE AND SCREEN,30 DAYon ABO O Normal [facility] Comment on above: Order Comment: Speci men Type: BLOOD SPECIMENOrdering Facility: [facility] Address: [address] [place] [address] Performed By: #### T SCR30 ####[facility] BLOOD BANKCLIA [id number] [address] [place] HISTORICAL AB SCR STATUS Negative Normal [facility] Comment on above: Order Comment: Speci men Type: BLOOD SPECIMENOrdering Facility: [facility] Address: [address] [place] [address] Performed By: #### T SCR30 ####[facility] BLOOD BANKCLIA [id number] [address] OF [place] Rh Nom (Bld) Positive Normal [facility] Comment on above: Order Comment: Speci men Type: BLOOD SPECIMENOrdering Facility: [facility] Address: [address] [place], [place] [address] Performed By: #### T SCR30 ####[facility] BLOOD BANKCLIA [id number] [address] aPTT PPPon 10-27-2021 aPTT Coag (PPP) [Time] 35.8 s High 23.0-32.4 [facility] Comment on above: Order Comment: Speci men Type: BLOOD SPECIMENOrdering Facility: [facility] Address: [address] [address] Performed By: #### 3 4528-0, 53819-8 ####[facility] LABCLIA [id number] [address] CNPNon 10-21-2021 CNPN Telephone ([facility]) ----- YEFRI YANEZ ([id number]) 1965 M [facility] Date Time Provider Department 10/21/21 [place]AYLEE [place] [facility] During your visit today, we recorded [...] for cabzantinib and sent new order to [facility] speciality pharmacy. Prescriptions as of [...] by this patient by: SPOUSE Safia Carr [facility] Problem List As Of Date [...] Encounter Status:Closed by AMERICA SCHWARTZ on 10/21/21 [facility] CNOVSPon 10-20-2021 CNOVSP Visit (SP) Office ([facility]) ----- YEFRI YANEZ ([id number]) 1965 M [facility] Date Time Provider Department 10/20/21 2:30 PM HAYLEE [place] [facility] During your visit today, we recorded the following information about you: Pulse Respiration Blood pressure Weight 60/minute 16/minute 130/78 115.2 kg Height 1.854 m Haylee [place] MD 10/21/2021 9:38 AM Signed [facility] Oncology Consult Note SERVICE DATE: October [...] started treatment with cabo + nivo on [facility] 1820 on 08/08/2021. He has baseline HTN and developed worsening HTN after starting treatment. His cabo was held on 08/18/2021, resumed on 09/11/2021. The Nivo was held on 09/11/21 due to pneumonitis, and prednisone 60 mg daily was started and tapered off one week ago. Due to insurance change, he was taken off the trial and referred to [facility] Oncology to resume the treatment. He [...] Never Tobacco comments (more content not included)... [facility] CNCOon 10-16-2021 CNCO Letter Text [facility] CNPShy 10-16-2021 CNPN [facility] CNPNon 10-14-2021 CNPN [facility] CBC W Auto Differential pane l (Bld)on 10-09-2021 Basophils (Bld) [#/Vol] 10*3/uL Normal <0.11 [facility] Comment on above: Order Comment: Speci men Type: BLOOD SPECIMENOrdering Facility: [facility] Address: [address] [place], [place] [address] Performed By: #### 5 7021-8 ####[facility] [id number] [place] [address] [place] Basophils/100 WBC (Bld) 0.3 % Normal C [facility] Comment on above: Order Comment: Speci men Type: BLOOD SPECIMENOrdering Facility: [facility] Address: [address] [place] [address] Performed By: #### 5 7021-8 ####[facility] [id number] [place] [address] [place] Differential cell count method Nom (Bld) Auto Normal [facility] Comment on above: Order Comment: Speci men Type: BLOOD SPECIMENOrdering Facility: [facility] Address: [address] [place], [place] [address] Performed By: #### 5 7021-8 ####[facility] [id number] [place] [address] [place] Eosinophils (Bld) [#/Vol] 0.03 10*3/uL Normal <0.46 [facility] Comment on above: Order Comment: Speci men Type: BLOOD SPECIMENOrdering Facility: [facility] Address: [address] [place], [place] [address] Performed By: #### 5 7021-8 ####[facility] [id number] [place] [address] Eosinophils/100 WBC (Bld) 0.4 % Normal [facility] Comment on above: Order Comment: Speci men Type: BLOOD SPECIMENOrdering Facility: [facility] Address: [address] [place], [place] [address] Performed By: #### 5 7021-8 ####[facility] [id number] [place] [address] [place] Erythrocyte distribution width (RBC) [Ratio] 17.2 % High 11.5-15.0 [facility] Comment on above: Order Comment: Speci men Type: BLOOD SPECIMENOrdering Facility: [facility] Address: [address] [place] [address] Performed By: #### 5 7021-8 ####[facility] [id number] [place] [address] [place] Hematocrit (Bld) [Volume fraction] 46.8 % Normal 39.0-51.0 [facility] Comment on above: Order Comment: Speci men Type: BLOOD SPECIMENOrdering Facility: [facility] Address: [address] [place] [address] Performed By: #### 5 7021-8 ####[facility] [id number] [place] [address] [place] Hemoglobin (Bld) [Mass/Vol] 15.5 g/dL Normal 13.0-17.0 [facility] Comment on above: Order Comment: Speci men Type: BLOOD SPECIMENOrdering Facility: [facility] Address: [address] [place] [address] Performed By: #### 5 7021-8 ####[facility] [id number] [place] [address] OF [facility] IMMATURE GRAN % 0.8 % Normal [facility] Comment on above: Order Comment: Speci men Type: BLOOD SPECIMENOrdering Facility: [facility] Address: [address] [place] [address] Performed By: #### 5 7021-8 ####[facility] [id number] [place] [address] [place] IMMATURE GRAN ABS 0.06 k/uL Normal <0.10 [facility] Comment on above: Order Comment: Speci men Type: BLOOD SPECIMENOrdering Facility: [facility] Address: [address] [place], [place] [address] Performed By: #### 5 7021-8 ####[facility] [id number] [place] [address] [place] Lymphocytes (Bld) [#/Vol] 2.33 10*3/uL Normal 1.00-4.00 [facility] Comment on above: Order Comment: Speci men Type: BLOOD SPECIMENOrdering Facility: [facility] Address: [address] [place] [address] Performed By: #### 5 7021-8 ####[facility] [id number] [place] [address] [place] Lymphocytes/100 WBC (Bld) 32.3 % Normal [facility] Comment on above: Order Comment: Speci men Type: BLOOD SPECIMENOrdering Facility: [facility] Address: [address] [place] [address] Performed By: #### 5 7021-8 ####[facility] [id number] [place] [address] [place] MCH (RBC) [Entitic mass] 30.2 pg Normal 26.0-34.0 [facility] Comment on above: Order Comment: Speci men Type: BLOOD SPECIMENOrdering Facility: [facility] Address: [address] [place], [place] [address] Performed By: #### 5 7021-8 ####[facility] [id number] [place] [address] [place] MCHC (RBC) [Mass/Vol] 33.1 g/dL Normal 30.5-36.0 [facility] Comment on above: Order Comment: Speci men Type: BLOOD SPECIMENOrdering Facility: [facility] Address: [address] [place], [place] [address] Performed By: #### 5 7021-8 ####[facility] [id number] [place] [address] [place] MCV (RBC) [Entitic vol] 91.2 fL Normal 80.0-100.0 C [facility] Comment on above: Order Comment: Speci men Type: BLOOD SPECIMENOrdering Facility: [facility] Address: [address] [place], [place] [address] Performed By: #### 5 7021-8 ####[facility] [id number] [place] [address] [place] Monocytes (Bld) [#/Vol] 0.35 10*3/uL Normal <0.87 [facility] Comment on above: Order Comment: Speci men Type: BLOOD SPECIMENOrdering Facility: [facility] Address: [address] [place], [place] [address] Performed By: #### 5 7021-8 ####[facility] [id number] [place] [address] [place] Monocytes/100 WBC (Bld) 4.8 % Normal C [facility] Comment on above: Order Comment: Speci men Type: BLOOD SPECIMENOrdering Facility: [facility] Address: [address] [place], [place] [address] Performed By: #### 5 7021-8 ####[facility] [id number] [place] [address] [place] Neutrophils (Bld) [#/Vol] 4.43 10*3/uL Normal 1.45-7.50 [facility] Comment on above: Order Comment: Speci men Type: BLOOD SPECIMENOrdering Facility: [facility] Address: [address] [place], [place] [address] Performed By: #### 5 7021-8 ####[facility] [id number] [address] [place] Neutrophils/100 WBC (Bld) 61.4 % Normal [facility] Comment on above: Order Comment: Speci men Type: BLOOD SPECIMENOrdering Facility: [facility] Address: [address] [place] [address] Performed By: #### 5 7021-8 ####[facility] [id number] [place] [address] [place] Nucleated RBC (Bld) [#/Vol] 10*3/uL Normal <0.01 [facility] Comment on above: Order Comment: Speci men Type: BLOOD SPECIMENOrdering Facility: [facility] Address: [address] [place], [place] [address] Performed By: #### 5 7021-8 ####[facility] [id number] [place] [address] [place] Nucleated RBC/100 WBC (Bld) [Ratio] 0.0 /100 WBC Normal [facility] Comment on above: Order Comment: Speci men Type: BLOOD SPECIMENOrdering Facility: [facility] Address: [address] [place], [place] [id number] Performed By: #### 5 7021-8 ####[facility] [id number] [place] [address] [place] Platelet mean volume (Bld) [Entitic vol] 9.1 fL Normal 9.0-12.7 [facility] Comment on above: Order Comment: Speci men Type: BLOOD SPECIMENOrdering Facility: [facility] Address: [address] [place], [place] [address] Performed By: #### 5 7021-8 ####[facility] [id number] [place] [address] [place] Platelets (Bld) [#/Vol] 243 10*3/uL Normal 150-400 [facility] Comment on above: Order Comment: Speci men Type: BLOOD SPECIMENOrdering Facility: [facility] Address: [address] [place], [place] [address] Performed By: #### 5 7021-8 ####[facility] [id number] [place] [address] [place] RBC (Bld) [#/Vol] 5.13 10*6/uL Normal 4.20-6.00 [facility] Comment on above: Order Comment: Speci men Type: BLOOD SPECIMENOrdering Facility: [facility] Address: [address] [place], [place] [address] Performed By: #### 5 7021-8 ####[facility] [place] [id number] [place] [address] [place] WBC (Bld) [#/Vol] 7.22 10*3/uL Normal 3.70-11.00 [facility] Comment on above: Order Comment: Speci men Type: BLOOD SPECIMENOrdering Facility: [facility] Address: [address] [place], [place] [address] Performed By: #### 5 7021-8 ####[facility] [id number] [place] [address] [place] CNNURSEon 10-09-2021 CNNURSE Normal [facility] CNOVSPon 10-09-2021 CNOVSP Normal [facility] Comprehensive metabolic 2000 panelon 10-09-2021 Albumin [Mass/Vol] 4.0 g/dL Normal 3.9-4.9 [facility] Comment on above: Order Comment: Speci men Type: BLOOD SPECIMENOrdering Facility: [facility] Address: [address] [place] [address] Performed By: #### 2 4323-8, 3084-1, 10926-2 ####[facility] [id number] [place] [address] [place] ALP [Catalytic activity/Vol] 89 U/L Normal 38-113 [facility] Comment on above: Order Comment: Speci men Type: BLOOD SPECIMENOrdering Facility: [facility] Address: [address] [place], [place] [address] Performed By: #### 2 4323-8, 308-1, ####[facility] [id number] [place] [address] [place] ALT [Catalytic activity/Vol] 50 U/L Normal 10-54 [facility] Comment on above: Order Comment: Speci men Type: BLOOD SPECIMENOrdering Facility: [facility] Address: [address] [place], [place] [address] Performed By: #### 2 4323-8, 3083-03, ####[facility] [id number] [place] [address] [place] Anion gap [Moles/Vol] 9 mmol/L Normal 9-18 [facility] Comment on above: Order Comment: Speci men Type: BLOOD SPECIMENOrdering Facility: [facility] Address: [address] [place], [place] [address] Performed By: #### 2 4323-8, 3083-03, ####[facility] [id number] [place] [address] [place] AST [Catalytic activity/Vol] 24 U/L Normal 14-40 [facility] Comment on above: Order Comment: Speci men Type: BLOOD SPECIMENOrdering Facility: [facility] Address: [address] [place], [place] [address] Performed By: #### 2 4323-8, 3083-03, ####[facility] [id number] [place] [id number] [place] Bilirubin [Mass/Vol] 0.3 mg/dL Normal 0.2-1.3 [facility] Comment on above: Order Comment: Speci men Type: BLOOD SPECIMENOrdering Facility: [facility] Address: [address] [place], [place] [address] Performed By: #### 2 4323-8, 3083-, ####[facility] [id number] [place] [address] [place] Calcium [Mass/Vol] 9.3 mg/dL Normal 8.5-10.2 [facility] Comment on above: Order Comment: Speci men Type: BLOOD SPECIMENOrdering Facility: [facility] Address: [address] [place], [place] [address] Performed By: #### 2 4323-8, 3083-03, ####[facility] [id number] [place] [address] [place] Chloride [Moles/Vol] 104 mmol/L Normal 97-105 [facility] Comment on above: Order Comment: Speci men Type: BLOOD SPECIMENOrdering Facility: [facility] Address: [address] [place], [place] [address] Performed By: #### 2 4323-8, 3083-03, ####[facility] [id number] [place] [address] [place] CO2 [Moles/Vol] 28 mmol/L Normal 22-30 [facility] Comment on above: Order Comment: Speci men Type: BLOOD SPECIMENOrdering Facility: [facility] Address: [address] [place] [address] Performed By: #### 2 4323-8, 3083-03, ####[facility] [id number] [place] [id number] [place] Creatinine [Mass/Vol] 1.19 mg/dL Normal 0.73-1.22 [facility] Comment on above: Order Comment: Speci men Type: BLOOD SPECIMENOrdering Facility: [facility] Address: [address] [place] [address] Performed By: #### 2 4323-8, 3084-1, ####[facility] [id number] [address] [place] ESTIMATED GLOMERULAR FILTRATION RATE 71 mL/min/1.73m??? Normal >=60 [facility] Comment on above: Order Comment: Aaliyah gibson Type: BLOOD SPECIMENOrdering Facility: [facility] Address: [address] [place], [place] [address] Result Comment: Laurita mated Glomerular Filtration Rate [...] #### 2 4323-8, 3084-1, ####[facility] [id number] [place] [address] [place] Glucose [Mass/Vol] 131 mg/dL High 74-99 [facility] Comment on above: Order Comment: Aaliyah paige Type: BLOOD SPECIMENOrdering Facility: [facility] Address: [address] [place], [place] [address] Result Comment: The [place] [employer] (ADA) provides guidance for cutoff [...] Standards of Medical Care in Diabetes 2016, [place] [employer]. Diabetes Care. 2016.39(Suppl 1). Performed By: #### 2 4323-8, 3084-1, 14596-7 ####[facility] [id number] [place] [address] [place] Potassium [Moles/Vol] 4.0 mmol/L Normal 3.7-5.1 [facility] Comment on above: Order Comment: Speci men Type: BLOOD SPECIMENOrdering Facility: [facility] Address: [address] [place], [place] [address] Performed By: #### 2 4323-8, 3084-1, ####[facility] [id number] [place] [address] [place] Protein [Mass/Vol] 6.4 g/dL Normal 6.3-8.0 [facility] Comment on above: Order Comment: Speci men Type: BLOOD SPECIMENOrdering Facility: [facility] Address: [address] [place], [place] [address] Performed By: #### 2 4323-8, 308-1, ####[facility] [id number] [place] [address] [place] Sodium [Moles/Vol] 141 mmol/L Normal 136-144 [facility] Comment on above: Order Comment: Speci men Type: BLOOD SPECIMENOrdering Facility: [facility] Address: [address] [place] [phone] Performed By: #### 2 4323-8, 3084-1, ####[facility] [id number] [place] [id number] [place] Urea nitrogen [Mass/Vol] 19 mg/dL Normal 9-24 [facility] Comment on above: Order Comment: Speci men Type: BLOOD SPECIMENOrdering Facility: [facility] Address: [address] [place], [place] [address] Performed By: #### 2 4323-8, 3084-1, 96607-1 ####[facility] [id number] [place] [address] LDH SerPl-cCncon 10-09-2021 LDH [Catalytic activity/Vol] 348 U/L High 135-225 [facility] Comment on above: Order Comment: Speci men Type: BLOOD SPECIMENOrdering Facility: [facility] Address: [address] [place] [address] Performed By: #### 2 532-0 ####[facility] [id number] [place] [address] Magnesium SerPl-mCncon 10-09 Magnesium [Mass/Vol] 2.2 mg/dL Normal 1.7-2.3 [facility] Comment on above: Order Comment: Speci men Type: BLOOD SPECIMENOrdering Facility: [facility] Address: [address] [place] [address] Performed By: #### 2 4323-8, 3084-1, 03293-3 ####[facility] [id number] [place] [address] PT panel Coag (PPP)on 2021 INR Coag (PPP) [Relative time] 2.8 {INR} High 0.9-1.3 [facility] Comment on above: Order Comment: Speci paige Type: BLOOD SPECIMENOrdering Facility: [facility] Address: [address] [place] [address] Result Comment: Constanza min K Antagonist (VKA) Therapeutic Range: INR 2 to 3 (Target INR of 2.5)Note: For patients treated with VKA drugs, such as warfarin, the [place] [employer] 2012 Guideline recommends [...] al. Chest 2012, 141:7S-47SNishimura RA, et al. [facility] 2017, 70: 252-289 Performed By: #### 1 4979-9, 49784-8 ####[facility] [id number] [place] [address] [place] PT Coag (PPP) [Time] 27.9 s High 9.7-13.0 [facility] Comment on above: Order Comment: Spectricia men Type: BLOOD SPECIMENOrdering Facility: [facility] Address: [address] [place] [address] Performed By: #### 1 4979-9, 84228-8 ####[facility] [id number] [place] [address] [place] Phosphate SerPl-mCncon 10-09 Phosphate [Mass/Vol] 3.4 mg/dL Normal 2.7-4.8 [facility] Comment on above: Order Comment: Aaliyah gibson Type: BLOOD SPECIMENOrdering Facility: [facility] Address: [address] [place] [address] Performed By: #### 2 777-1 ####[facility] [id number] [place] [address] [place] T3Free SerPl-mCncon 10-10-19 22 Free T3 [Mass/Vol] 3.0 pg/mL Normal 2.3-4.1 [facility] Comment on above: Order Comment: Aaliyah gibson Type: BLOOD SPECIMENOrdering Facility: [facility] Address: [address] [place] [address] Performed By: #### 3 051-0, 3024-7 ####[facility] [id number] [place] [address] [place] T4 Free SerPl-mCncon 022 Free T4 [Mass/Vol] 1.2 ng/dL Normal 0.9-1.7 [facility] Comment on above: Order Comment: Speci men Type: BLOOD SPECIMENOrdering Facility: [facility] Address: [address] [place] [address] Performed By: #### 3 051-0, 3024-7 ####[facility] [id number] [place] [address] [place] TSH SerPl-aCncon 10-09-2021 TSH Qn 0.925 m[IU]/L Normal 0.270-4.20 0 [facility] Comment on above: Order Comment: Speci men Type: BLOOD SPECIMENOrdering Facility: [facility] Address: [address] [place] [address] Performed By: #### 3 016-3 ####[facility] [id number] [address] [place] Urate SerPl-mCncon 2 Urate [Mass/Vol] 8.3 mg/dL High 4.0-8.1 [facility] Comment on above: Order Comment: Speci men Type: BLOOD SPECIMENOrdering Facility: [facility] Address: [address] [place] [address] Performed By: #### 2 4323-8, 3084-1, 03585-3 ####[facility] [id number] [place] [address] [place] aPTT PPPon 10-09-2021 aPTT Coag (PPP) [Time] 31.7 s Normal 23.0-32.4 [facility] Comment on above: Order Comment: Speci men Type: BLOOD SPECIMENOrdering Facility: [facility] Address: [address] [place], [place] [address] Performed By: #### 1 4979-9, 05184-5 ####[facility]CL[facility] [id number] [place] [address] [place] CNPNon 09-29-2021 CNPN Normal [facility] CNPTOUTREACHon 09-29-2021 CNPTOUTREACH Normal [facility] Basic metabolic 2000 panelon 09-26-2021 Anion gap [Moles/Vol] 6 mmol/L Low 9-18 [facility] Comment on above: Order Comment: Speci men Type: BLOOD SPECIMENOrdering Facility: [facility] Address: [address] [place], [place] [address] Performed By: #### 2 4321-2 ####[facility] [id number] [place] [address] [place] Calcium [Mass/Vol] 9.9 mg/dL Normal 8.5-10.2 [facility] Comment on above: Order Comment: Speci men Type: BLOOD SPECIMENOrdering Facility: [facility] Address: [address] [place], [place] [address] Performed By: #### 2 4321-2 ####[facility] [id number] [place] [address] [place] Chloride [Moles/Vol] 98 mmol/L Normal 97-105 [facility] Comment on above: Order Comment: Speci men Type: BLOOD SPECIMENOrdering Facility: [facility] Address: [address] [place], [place] [address] Performed By: #### 2 4321-2 ####[facility]CL[facility] [id number] [place] [id number] [place] CO2 [Moles/Vol] 38 mmol/L High 22-30 [facility] Comment on above: Order Comment: Speci men Type: BLOOD SPECIMENOrdering Facility: [facility] Address: [address] [place] [address] Performed By: #### 2 4321-2 ####[facility] [id number] [address] [place] Creatinine [Mass/Vol] 1.07 mg/dL Normal 0.73-1.22 [facility] Comment on above: Order Comment: Speci men Type: BLOOD SPECIMENOrdering Facility: [facility] Address: [address] [place] [address] Performed By: #### 2 4321-2 ####[facility] LABIA [id number] [address] [place] ESTIMATED GLOMERULAR FILTRATION RATE 81 mL/min/1.73m??? Normal >=60 [facility] Comment on above: Order Comment: Speci men Type: BLOOD SPECIMENOrdering Facility: [facility] Address: [address] [place] [address] Result Comment: Laurita mated Glomerular Filtration Rate [...] actual GFR. Performed By: #### 2 4321-2 ####[facility] [id number] [place] [address] [place] Glucose [Mass/Vol] 127 mg/dL High 74-99 [facility] Comment on above: Order Comment: Speci men Type: BLOOD SPECIMENOrdering Facility: [facility] Address: [address] [place] [address] Result Comment: The [place] [employer] (ADA) provides guidance for cutoff [...] Standards of Medical Care in Diabetes 2016, [place] [employer]. Diabetes Care. 2016.39(Suppl 1). Performed By: #### 2 4321-2 ####[facility]CL[facility] [id number] [place] [address] [place] Potassium [Moles/Vol] 3.7 mmol/L Normal 3.7-5.1 [facility] Comment on above: Order Comment: Aaliyah gibson Type: BLOOD SPECIMENOrdering Facility: [facility] Address: [address] [place] [address] Performed By: #### 2 4321-2 ####[facility]CL[facility] [id number] [place] [address] [place] Sodium [Moles/Vol] 142 mmol/L Normal 136-144 [facility] Comment on above: Order Comment: Aaliyah gibson Type: BLOOD SPECIMENOrdering Facility: [facility] Address: [address] [place] [address] Performed By: #### 2 4321-2 ####[facility]CL[facility] [id number] [place] [address] [place] Urea nitrogen [Mass/Vol] 27 mg/dL High 9-24 [facility] Comment on above: Order Comment: Aaliyah gibson Type: BLOOD SPECIMENOrdering Facility: [facility] Address: [address] [place] [address] Performed By: #### 2 4321-2 ####[facility]CL[facility] [id number] [place] [address] [place] CBC panel Auto (Bld)on 09-26 Erythrocyte distribution width (RBC) [Ratio] 17.2 % High 11.5-15.0 [facility] Comment on above: Order Comment: Speci men Type: BLOOD SPECIMENOrdering Facility: [facility] Address: [address] [place] [address] Performed By: #### 5 8410-2 ####[facility] LABCLIA [id number] [address] [place] [facility] Hematocrit (Bld) [Volume fraction] 41.7 % Normal 39.0-51.0 [facility] Comment on above: Order Comment: Speci men Type: BLOOD SPECIMENOrdering Facility: [facility] Address: [address] [place] [address] Performed By: #### 5 8410-2 ####[facility] [id number] [address] [place] Hemoglobin (Bld) [Mass/Vol] 13.4 g/dL Normal 13.0-17.0 [facility] Comment on above: Order Comment: Speci men Type: BLOOD SPECIMENOrdering Facility: [facility] Address: [address] [place], [place] [address] Performed By: #### 5 8410-2 ####[facility]CL[facility] [id number] [place] [address] [place] MCH (RBC) [Entitic mass] 29.8 pg Normal 26.0-34.0 [facility] Comment on above: Order Comment: Speci men Type: BLOOD SPECIMENOrdering Facility: [facility] Address: [address] [place], [place] [address] Performed By: #### 5 8410-2 ####[facility] [id number] [place] [address] [place] MCHC (RBC) [Mass/Vol] 32.1 g/dL Normal 30.5-36.0 [facility] Comment on above: Order Comment: Speci men Type: BLOOD SPECIMENOrdering Facility: [facility] Address: [address] [place], [place] [address] Performed By: #### 5 8410-2 ####[facility]IA [id number] [place] [address] [place] MCV (RBC) [Entitic vol] 92.7 fL Normal 80.0-100.0 [facility] Comment on above: Order Comment: Speci men Type: BLOOD SPECIMENOrdering Facility: [facility] Address: [address] [place], [place] [address] Performed By: #### 5 8410-2 ####[facility] [id number] [place] [address] [place] Nucleated RBC (Bld) [#/Vol] 0.02 10*3/uL High <0.01 [facility] Comment on above: Order Comment: Speci men Type: BLOOD SPECIMENOrdering Facility: [facility] Address: [address] [place], [place] [address] Performed By: #### 5 8410-2 ####[facility] [id number] [place] [address] [place] Platelet mean volume (Bld) [Entitic vol] 10.4 fL Normal 9.0-12.7 [facility] Comment on above: Order Comment: Speci men Type: BLOOD SPECIMENOrdering Facility: [facility] Address: [address] [place] [address] Performed By: #### 5 8410-2 ####[facility] [id number] [place] [address] [place] Platelets (Bld) [#/Vol] 177 10*3/uL Normal 150-400 [facility] Comment on above: Order Comment: Speci men Type: BLOOD SPECIMENOrdering Facility: [facility] Address: [address] [place] [phone] Performed By: #### 5 8410-2 ####[facility]CL[facility] [id number] [place] [address] [place] RBC (Bld) [#/Vol] 4.50 10*6/uL Normal 4.20-6.00 [facility] Comment on above: Order Comment: Speci men Type: BLOOD SPECIMENOrdering Facility: [facility] Address: [address] [place], [place] [address] Performed By: #### 5 8410-2 ####[facility]IA [id number] [place] [address] [place] WBC (Bld) [#/Vol] 9.26 10*3/uL Normal 3.70-11.00 [facility] Comment on above: Order Comment: Speci men Type: BLOOD SPECIMENOrdering Facility: [facility] Address: [address] [place], [place] [address] Performed By: #### 5 8410-2 ####[facility] LABIA [id number] [place] [address] [place] CNDSon 09-26-2021 CNDS Normal [facility] ECG COMPLETEon 09-26-2021 ECG COMPLETE Normal [facility] ECHOLon 09-26-2021 ECHOL Normal [facility] NURSING PROGon 09-26-2021 NURSING PROG Normal [facility] PT EDon 09-26-2021 PT ED Normal [facility] PT panel Coag (PPP)on 2021 INR Coag (PPP) [Relative time] 1.3 {INR} Normal 0.9-1.3 [facility] Comment on above: Order Comment: Speci men Type: BLOOD SPECIMENOrdering Facility: [facility] Address: [address] [place], [place] [phone] Result Comment: Constanza min K Antagonist (VKA) Therapeutic Range: INR 2 to 3 (Target INR of 2.5)Note: For patients treated with VKA drugs, such as warfarin, the [place] [employer] 2012 Guideline recommends [...] al. Chest 2012, 141:7S-47SNishimura RA, et al. [facility] 2017, 70: 252-289 Performed By: #### 3 4528-0 ####[facility]CL[facility] [id number] [place] [address] [place] PT Coag (PPP) [Time] 13.5 s High 9.7-13.0 [facility] Comment on above: Order Comment: Speci men Type: BLOOD SPECIMENOrdering Facility: [facility] Address: [address] [place] [address] Performed By: #### 3 4528-0 ####[facility] LAB[facility] [id number] [place] [address] [place] ANES POSTPROC EVALon 022 ANES POSTPROC EVAL Normal [facility] ANES PRE-OPon 09-25-2021 ANES PRE-OP Normal [facility] Basic metabolic 2000 panelon 09-25-2021 Anion gap [Moles/Vol] 10 mmol/L Normal 9-18 [facility] Comment on above: Order Comment: Aaliyah gibson Type: BLOOD SPECIMENOrdering Facility: [facility] Address: [address] [place] [address] Performed By: #### 1 9123-9, 87941-1 ####[facility]CLIA [id number] [facility] [place] [address] [place] Calcium [Mass/Vol] 9.4 mg/dL Normal 8.5-10.2 [facility] Comment on above: Order Comment: Speci men Type: BLOOD SPECIMENOrdering Facility: [facility] Address: [address] [place] [address] Performed By: #### 1 9123-9, 95028-6 ####[facility]CL[facility] [id number] [facility] [place] [address] [place] Chloride [Moles/Vol] 99 mmol/L Normal 97-105 [facility] Comment on above: Order Comment: Speci men Type: BLOOD SPECIMENOrdering Facility: [facility] Address: [address] [place], [place] [address] Performed By: #### 1 9123-9, 89844-3 ####[facility]CL[facility] [id number] [place] [address] [place] CO2 [Moles/Vol] 31 mmol/L High 22-30 [facility] Comment on above: Order Comment: Speci men Type: BLOOD SPECIMENOrdering Facility: [facility] Address: [address] [place], [place] [address] Performed By: #### 1 9123-9, 95641-8 ####[facility]CL[facility] [id number] [place] [address] [place] Creatinine [Mass/Vol] 0.95 mg/dL Normal 0.73-1.22 [facility] Comment on above: Order Comment: Speci men Type: BLOOD SPECIMENOrdering Facility: [facility] Address: [address] [place] [address] Performed By: #### 1 9123-9, 97360-2 ####[facility]CL[facility] [id number] [place] [address] [place] ESTIMATED GLOMERULAR FILTRATION RATE 93 mL/min/1.73m??? Normal >=60 [facility] Comment on above: Order Comment: Aaliyah gibson Type: BLOOD SPECIMENOrdering Facility: [facility] Address: [address] [place] [address] Result Comment: Laurita mated Glomerular Filtration Rate [...] actual GFR. Performed By: #### 1 9123-9, 31629-3 ####[facility] [id number] [place] [address] [place] Glucose [Mass/Vol] 116 mg/dL High 74-99 [facility] Comment on above: Order Comment: Aaliyah gibson Type: BLOOD SPECIMENOrdering Facility: GOOD [facility] Address: [address] [place] [address] Result Comment: The [place] Diabetes Association (ADA) provides guidance for cutoff [...] Standards of Medical Care in Diabetes 2016, [place] [employer]. Diabetes Care. 2016.39(Suppl 1). Performed By: #### 1 9123-9, 87543-5 ####[facility] LABIA [id number] [place] [address] [place] Potassium [Moles/Vol] 3.8 mmol/L Normal 3.7-5.1 [facility] Comment on above: Order Comment: Speci men Type: BLOOD SPECIMENOrdering Facility: [facility] Address: [address] [place] [address] Performed By: #### 1 9123-9, 80663-0 ####[facility] LABCLIA [id number] [address] STATES OF [facility] Sodium [Moles/Vol] 140 mmol/L Normal 136-144 [facility] Comment on above: Order Comment: Speci men Type: BLOOD SPECIMENOrdering Facility: [facility] Address: [address] [place] [address] Performed By: #### 1 9123-9, 76221-7 ####[facility] LABCLIA [id number] [address] [place] Urea nitrogen [Mass/Vol] 24 mg/dL Normal 9-24 [facility] Comment on above: Order Comment: Speci men Type: BLOOD SPECIMENOrdering Facility: [facility] Address: [address] [place] [address] Performed By: #### 1 9123-9, 78668-3 ####[facility] LABIA [id number] [address] [place] CASE MANAGEMon 09-25-2021 CASE MANAGEM Normal [facility] CBC panel Auto (Bld)on 09-25 Erythrocyte distribution width (RBC) [Ratio] 17.1 % High 11.5-15.0 [facility] Comment on above: Order Comment: Speci men Type: BLOOD SPECIMENOrdering Facility: [facility] Address: [address] [place], [place] [address] Performed By: #### 5 8410-2 ####[facility] LABIA [id number] [address] [place] Hematocrit (Bld) [Volume fraction] 41.6 % Normal 39.0-51.0 [facility] Comment on above: Order Comment: Speci men Type: BLOOD SPECIMENOrdering Facility: [facility] Address: [address] [place], [place] [address] Performed By: #### 5 8410-2 ####[facility] [id number] [place] [address] [place] Hemoglobin (Bld) [Mass/Vol] 13.7 g/dL Normal 13.0-17.0 [facility] Comment on above: Order Comment: Speci men Type: BLOOD SPECIMENOrdering Facility: [facility] Address: [address] [place] [address] Performed By: #### 5 8410-2 ####[facility] [id number] [place] [address] [place] MCH (RBC) [Entitic mass] 30.3 pg Normal 26.0-34.0 [facility] Comment on above: Order Comment: Speci men Type: BLOOD SPECIMENOrdering Facility: [facility] Address: [address] [place], [place] [address] Performed By: #### 5 8410-2 ####[facility] [id number] [address] [place] MCHC (RBC) [Mass/Vol] 32.9 g/dL Normal 30.5-36.0 [facility] Comment on above: Order Comment: Speci men Type: BLOOD SPECIMENOrdering Facility: [facility] Address: [address] [place], [place] [address] Performed By: #### 5 8410-2 ####[facility] [id number] [place] [address] [place] MCV (RBC) [Entitic vol] 92.0 fL Normal 80.0-100.0 [facility] Comment on above: Order Comment: Speci men Type: BLOOD SPECIMENOrdering Facility: [facility] Address: [address] [place], [place] [address] Performed By: #### 5 8410-2 ####[facility] LABCLIA [id number] [facility] [place] [address] [place] Nucleated RBC (Bld) [#/Vol] 0.03 10*3/uL High <0.01 [facility] Comment on above: Order Comment: Speci men Type: BLOOD SPECIMENOrdering Facility: [facility] Address: [address] [place], [place] [address] Performed By: #### 5 8410-2 ####[facility] LABCLIA [id number] [place] [address] [place] Platelet mean volume (Bld) [Entitic vol] 10.2 fL Normal 9.0-12.7 [facility] Comment on above: Order Comment: Speci men Type: BLOOD SPECIMENOrdering Facility: [facility] Address: [address] [place], [place] [address] Performed By: #### 5 8410-2 ####[facility] LABIA [id number] [place] [address] [place] Platelets (Bld) [#/Vol] 175 10*3/uL Normal 150-400 [facility] Comment on above: Order Comment: Speci men Type: BLOOD SPECIMENOrdering Facility: [facility] Address: [address] [place], [place] [address] Performed By: #### 5 8410-2 ####[facility] LABCLIA [id number] [facility] [place] [address] [place] RBC (Bld) [#/Vol] 4.52 10*6/uL Normal 4.20-6.00 [facility] Comment on above: Order Comment: Speci men Type: BLOOD SPECIMENOrdering Facility: [facility] Address: [address] [place], [place] [address] Performed By: #### 5 8410-2 ####[facility] LABCLIA [id number] [place] [address] [place] WBC (Bld) [#/Vol] 10.86 10*3/uL Normal 3.70-11.00 [facility] Comment on above: Order Comment: Speci men Type: BLOOD SPECIMENOrdering Facility: [facility] Address: [address] [place] [address] Performed By: #### 5 8410-2 ####[facility] LABCLIA [id number] [place] [address] [place] CNOVon 09-25-2021 CNOV Normal [facility] ZYN23no 09-25-2021 ECG01 Normal [facility] Magnesium SerPl-mCncon 09-25 Magnesium [Mass/Vol] 2.2 mg/dL Normal 1.7-2.3 [facility] Comment on above: Order Comment: Speci men Type: BLOOD SPECIMENOrdering Facility: [facility] Address: [address] [place] [address] Performed By: #### 1 9123-9, 15319-3 ####[facility] LABCLIA [id number] [place] [address] [place] POTASSIUM BLDon 09-25-2021 Potassium [Moles/Vol] 4.5 mmol/L Normal 3.7-5.1 [facility] Comment on above: Order Comment: Speci men Type: BLOOD SPECIMENOrdering Facility: [facility] Address: [address] [place] [address] Performed By: #### K 1 ####[facility] LABIA [id number] [place] [address] [place] PT EDon 09-25-2021 PT ED Normal [facility] PT panel Coag (PPP)on 2021 INR Coag (PPP) [Relative time] 1.2 {INR} Normal 0.9-1.3 [facility] Comment on above: Order Comment: Speci men Type: BLOOD SPECIMENOrdering Facility: [facility] Address: [address] [place] [phone] Result Comment: Constanza min K Antagonist (VKA) Therapeutic Range: INR 2 to 3 (Target INR of 2.5)Note: For patients treated with VKA drugs, such as warfarin, the [place] [employer] 2012 Guideline recommends [...] al. Chest 2012, 141:7S-47SNishimura RA, et al. [facility] 2017, 70: 252-289 Performed By: #### 3 4528-0 ####[facility] [id number] [place] [address] [place] PT Coag (PPP) [Time] 12.7 s Normal 9.7-13.0 [facility] Comment on above: Order Comment: Speci men Type: BLOOD SPECIMENOrdering Facility: [facility] Address: [address] [place], [place] [address] Performed By: #### 3 4528-0 ####[facility] [id number] [place] [address] [place] TEEon 09-25-2021 LISA Normal [facility] Basic metabolic 2000 panelon 09-24-2021 Anion gap [Moles/Vol] 12 mmol/L Normal 9-18 [facility] Comment on above: Order Comment: Speci men Type: BLOOD SPECIMENOrdering Facility: [facility] Address: [address] [place], [place] [address] Performed By: #### 1 9123-9, 57740-0 ####[facility] LABCLIA [id number] [facility]ENUECOMM[facility] [place] [address] [place] Calcium [Mass/Vol] 9.0 mg/dL Normal 8.5-10.2 [facility] Comment on above: Order Comment: Speci men Type: BLOOD SPECIMENOrdering Facility: [facility] Address: [address] [place], [place] [address] Performed By: #### 1 91239, 00710-3 ####[facility] LABCLIA [id number] [facility] [place] [address] [place] Chloride [Moles/Vol] 100 mmol/L Normal 97-105 [facility] Comment on above: Order Comment: Speci men Type: BLOOD SPECIMENOrdering Facility: [facility] Address: [address] [place] [address] Performed By: #### 1 91239, 90056-7 ####[facility] LABCLIA [id number] [facility] [place] [address] [place] CO2 [Moles/Vol] 29 mmol/L Normal 22-30 [facility] Comment on above: Order Comment: Speci men Type: BLOOD SPECIMENOrdering Facility: [facility] Address: [address] [place], [place] [address] Performed By: #### 1 9122-11, 28526-5 ####[facility] LABCLIA [id number] [facility] [place] [address] [place] Creatinine [Mass/Vol] 1.08 mg/dL Normal 0.73-1.22 [facility] Comment on above: Order Comment: Speci men Type: BLOOD SPECIMENOrdering Facility: [facility] Address: [address] [place], [place] [address] Performed By: #### 1 91239, 67418-5 ####[facility] LABCLIA [id number] [place] [address] [place] ESTIMATED GLOMERULAR FILTRATION RATE 80 mL/min/1.73m??? Normal >=60 [facility] Comment on above: Order Comment: Aaliyah gibson Type: BLOOD SPECIMENOrdering Facility: [facility] Address: [address] Result Comment: Laurita mated Glomerular Filtration [...] actual GFR. Performed By: #### 1 9123-9, 32873-2 ####[facility] LABCLIA [id number] [place] [address] [place] Glucose [Mass/Vol] 150 mg/dL High 74-99 [facility] Comment on above: Order Comment: Aaliyah gibson Type: BLOOD SPECIMENOrdering Facility: [facility] Address: [address] [address] Result Comment: The [place] Diabetes Association (ADA) provides guidance for cutoff [...] Standards of Medical Care in Diabetes 2016, [place] [employer]. Diabetes Care. 2016.39(Suppl 1). Performed By: #### 1 9123-9, 61825-8 ####[facility] LABCLIA [id number] [place] [address] [place] Potassium [Moles/Vol] 3.5 mmol/L Low 3.7-5.1 [facility] Comment on above: Order Comment: Speci men Type: BLOOD SPECIMENOrdering Facility: [facility] Address: [address] [place], [place] [address] Performed By: #### 1 9123-9, 28859-6 ####[facility] LABCLIA [id number] [place] [address] [place] Sodium [Moles/Vol] 141 mmol/L Normal 136-144 [facility] Comment on above: Order Comment: Speci men Type: BLOOD SPECIMENOrdering Facility: [facility] Address: [address] [place], [place] [address] Performed By: #### 1 9123-9, 73734-0 ####[facility] LABIA [id number] [place] [address] [place] Urea nitrogen [Mass/Vol] 22 mg/dL Normal 9-24 [facility] Comment on above: Order Comment: Speci men Type: BLOOD SPECIMENOrdering Facility: [facility] Address: [address] [place], [place] [address] Performed By: #### 1 9123-9, 03613-2 ####[facility] LABIA [id number] [place] [address] [place] CBC panel Auto (Bld)on 09-24 Erythrocyte distribution width (RBC) [Ratio] 17.2 % High 11.5-15.0 [facility] Comment on above: Order Comment: Speci men Type: BLOOD SPECIMENOrdering Facility: [facility] Address: [address] [place], [place] [address] Performed By: #### 5 8410-2 ####[facility] LABIA [id number] [address] [place] Hematocrit (Bld) [Volume fraction] 42.3 % Normal 39.0-51.0 [facility] Comment on above: Order Comment: Speci men Type: BLOOD SPECIMENOrdering Facility: [facility] Address: [address] [place] [address] Performed By: #### 5 8410-2 ####[facility] [id number] [place] [address] [place] Hemoglobin (Bld) [Mass/Vol] 13.6 g/dL Normal 13.0-17.0 [facility] Comment on above: Order Comment: Speci men Type: BLOOD SPECIMENOrdering Facility: [facility] Address: [address] [place] [address] Performed By: #### 5 8410-2 ####[facility] [id number] [address] [place] MCH (RBC) [Entitic mass] 30.0 pg Normal 26.0-34.0 [facility] Comment on above: Order Comment: Speci men Type: BLOOD SPECIMENOrdering Facility: [facility] Address: [address] [place] [address] Performed By: #### 5 8410-2 ####[facility] [id number] [address] [place] MCHC (RBC) [Mass/Vol] 32.2 g/dL Normal 30.5-36.0 [facility] Comment on above: Order Comment: Speci men Type: BLOOD SPECIMENOrdering Facility: [facility] Address: [address] [place], [place] [address] Performed By: #### 5 8410-2 ####[facility] [id number] [place] [address] [place] MCV (RBC) [Entitic vol] 93.4 fL Normal 80.0-100.0 C [facility] Comment on above: Order Comment: Speci men Type: BLOOD SPECIMENOrdering Facility: [facility] Address: [address] [place], [place] [address] Performed By: #### 5 8410-2 ####[facility] LABCLIA [id number] [place] [address] [place] Nucleated RBC (Bld) [#/Vol] 10*3/uL Normal <0.01 [facility] Comment on above: Order Comment: Speci men Type: BLOOD SPECIMENOrdering Facility: [facility] Address: [address] [place], [place] [address] Performed By: #### 5 8410-2 ####[facility] LABCLIA [id number] [place] [address] [place] Platelet mean volume (Bld) [Entitic vol] 10.1 fL Normal 9.0-12.7 [facility] Comment on above: Order Comment: Speci men Type: BLOOD SPECIMENOrdering Facility: [facility] Address: [address] [place], [place] [address] Performed By: #### 5 8410-2 ####[facility] LABIA [id number] [place] [address] [place] Platelets (Bld) [#/Vol] 186 10*3/uL Normal 150-400 [facility] Comment on above: Order Comment: Speci men Type: BLOOD SPECIMENOrdering Facility: [facility] Address: [address] [place] [address] Performed By: #### 5 8410-2 ####[facility] LABIA [id number] [place] [address] [place] RBC (Bld) [#/Vol] 4.53 10*6/uL Normal 4.20-6.00 [facility] Comment on above: Order Comment: Speci men Type: BLOOD SPECIMENOrdering Facility: [facility] Address: [address] [place], [place] [address] Performed By: #### 5 8410-2 ####[facility] LABCLIA [id number] [place] [address] [place] WBC (Bld) [#/Vol] 9.42 10*3/uL Normal 3.70-11.00 [facility] Comment on above: Order Comment: Speci men Type: BLOOD SPECIMENOrdering Facility: [facility] Address: [address] [place] [address] Performed By: #### 5 8410-2 ####[facility] [id number] [place] [address] [place] Magnesium SerPl-mCncon 09-24 Magnesium [Mass/Vol] 2.1 mg/dL Normal 1.7-2.3 [facility] Comment on above: Order Comment: Speci men Type: BLOOD SPECIMENOrdering Facility: [facility] Address: [address] [place] [address] Performed By: #### 1 9123-9, 57278-2 ####[facility] [id number] [place] [address] [place] POTASSIUM BLDon 09-24-2021 Potassium [Moles/Vol] 3.7 mmol/L Normal 3.7-5.1 [facility] Comment on above: Order Comment: Speci men Type: BLOOD SPECIMENOrdering Facility: [facility] Address: [address] [place] [address] Performed By: #### K 1 ####[facility] [id number] [place] [address] [place] PT EDon 09-24-2021 PT ED Normal [facility] PT panel Coag (PPP)on 2021 INR Coag (PPP) [Relative time] 1.2 {INR} Normal 0.9-1.3 [facility] Comment on above: Order Comment: Speci men Type: BLOOD SPECIMENOrdering Facility: [facility] Address: [address] [place], [place] [address] Result Comment: Constanza min K Antagonist (VKA) Therapeutic Range: INR 2 to 3 (Target INR of 2.5)Note: For patients treated with VKA drugs, such as warfarin, the [place] [employer] 2012 Guideline recommends [...] al. Chest 2012, 141:7S-47SNishimkhalida RA, et al. [facility] 2017, 70: 252-289 Performed By: #### 3 4528-0 ####[facility] LABIA [id number] [place] [address] [place] PT Coag (PPP) [Time] 12.3 s Normal 9.7-13.0 [facility] Comment on above: Order Comment: Speci men Type: BLOOD SPECIMENOrdering Facility: [facility] Address: [address] [place] [address] Performed By: #### 3 4528-0 ####[facility] LABIA [id number] [place] [address] [place] PTT, ANTICOAGULANT THERAPYon 09-24-2021 aPTT Coag (PPP) [Time] 34.3 s High 23.0-32.4 [facility] Comment on above: Order Comment: Speci men Type: BLOOD SPECIMENOrdering Facility: [facility] Address: [address] [place] [address] Performed By: #### P TTAC ####[facility] LABCLIA [id number] [place] [address] [place] aPTT Coag (PPP) [Time] 53.2 s High 23.0-32.4 [facility] Comment on above: Order Comment: Speci men Type: BLOOD SPECIMENOrdering Facility: [facility] Address: [address] [place] [address] Performed By: #### P TTA ####[facility] LABCLIA [id number] [place] [address] [place] Basic metabolic 2000 panelon 09-23-2021 Anion gap [Moles/Vol] 9 mmol/L Normal 9-18 [facility] Comment on above: Order Comment: Speci men Type: BLOOD SPECIMENOrdering Facility: [facility] Address: [address] [place], [place] [address] Performed By: #### 3 016-3, 04112-0, 29008-3, 96945-5 ####[facility] LABCLIA [id number] [place] [address] [place] Calcium [Mass/Vol] 9.1 mg/dL Normal 8.5-10.2 [facility] Comment on above: Order Comment: Speci men Type: BLOOD SPECIMENOrdering Facility: [facility] Address: [address] [place] [address] Performed By: #### 3 016-3, 53724-5, 75647-7, 26066-9 ####[facility] LABCLIA [id number] [place] [address] [place] Chloride [Moles/Vol] 100 mmol/L Normal 97-105 [facility] Comment on above: Order Comment: Speci men Type: BLOOD SPECIMENOrdering Facility: [facility] Address: [address] [place], [place] [address] Performed By: #### 3 016-3, 63837-2, 53220-6, 72460-9 ####[facility] LABCLIA [id number] [place] [address] [place] CO2 [Moles/Vol] 32 mmol/L High 22-30 [facility] Comment on above: Order Comment: Speci men Type: BLOOD SPECIMENOrdering Facility: [facility] Address: [address] [place] [address] Performed By: #### 3 016-3, 30195-2, 51549-3, ####[facility] LABCLIA [id number] [place] [address] [place] Creatinine [Mass/Vol] 1.20 mg/dL Normal 0.73-1.22 [facility] Comment on above: Order Comment: Speci men Type: BLOOD SPECIMENOrdering Facility: [facility] Address: [address] [place] [address] Performed By: #### 3 016-3, 33872-9, 05499-4, ####[facility] LABIA [id number] [address] OF [facility] ESTIMATED GLOMERULAR FILTRATION RATE 71 mL/min/1.73m??? Normal >=60 [facility] Comment on above: Order Comment: Speci men Type: BLOOD SPECIMENOrdering Facility: [facility] Address: [address] [place] [address] Result Comment: Laurita mated Glomerular Filtration Rate [...] actual GFR. Performed By: #### 3 016-3, 21223-2, 60838-1, ####[facility] LABCLIA [id number] [place] [address] [place] Glucose [Mass/Vol] 133 mg/dL High 74-99 [facility] Comment on above: Order Comment: Speci men Type: BLOOD SPECIMENOrdering Facility: [facility] Address: [address] [place], [place] [address] Result Comment: The [place] [employer] (ADA) provides guidance for cutoff [...] Standards of Medical Care in Diabetes 2016, [place] [employer]. Diabetes Care. 2016.39(Suppl 1). Performed By: #### 3 016-3, 65110-5, 21569-3, ####[facility] LABCL[facility] [id number] [place] [address] [place] Potassium [Moles/Vol] 3.1 mmol/L Low 3.7-5.1 [facility] Comment on above: Order Comment: Speci men Type: BLOOD SPECIMENOrdering Facility: [facility] Address: [address] [place] [address] Performed By: #### 3 016-3, 64432-7, 51535-9, ####[facility] LABCLIA [id number] [place] [address] [place] Sodium [Moles/Vol] 141 mmol/L Normal 136-144 [facility] Comment on above: Order Comment: Speci men Type: BLOOD SPECIMENOrdering Facility: [facility] Address: [address] [place] [address] Performed By: #### 3 016-3, 25902-0, 48494-5, ####[facility] LABCLIA [id number] [place] [address] [place] Urea nitrogen [Mass/Vol] 22 mg/dL Normal 9-24 [facility] Comment on above: Order Comment: Speci men Type: BLOOD SPECIMENOrdering Facility: [facility] Address: [address] [place] [address] Performed By: #### 3 016-3, 02575-7, 38728-8, 50367-2 ####[facility] LABCLIA [id number] [place] [address] [place] CASE MGT INIT ASSESon 2021 CASE MGT INIT ASSES Normal [facility] CBC W Auto Differential pane l (Bld)on 09-23-2021 Basophils (Bld) [#/Vol] 10*3/uL Normal <0.11 C [facility] Comment on above: Order Comment: Speci men Type: BLOOD SPECIMENOrdering Facility: [facility] Address: [address] [place] [address] Performed By: #### 5 7021-8 ####[facility] LABCLIA [id number] [place] [address] [place] Basophils/100 WBC (Bld) 0.1 % Normal C [facility] Comment on above: Order Comment: Speci men Type: BLOOD SPECIMENOrdering Facility: [facility] Address: [address] [place] [address] Performed By: #### 5 7021-8 ####[facility] LABCLIA [id number] [place] [address] [place] Differential cell count method Nom (Bld) Auto Normal [facility] Comment on above: Order Comment: Speci men Type: BLOOD SPECIMENOrdering Facility: [facility] Address: [address] [place] [address] Performed By: #### 5 7021-8 ####[facility] LABCLIA [id number] [place] [address] [place] Eosinophils (Bld) [#/Vol] 10*3/uL Normal <0.46 [facility] Comment on above: Order Comment: Speci men Type: BLOOD SPECIMENOrdering Facility: [facility] Address: [address] [place], [place] [id number] Performed By: #### 5 7021-8 ####[facility] LABCLIA [id number] [place] [address] [place] Eosinophils/100 WBC (Bld) 0.0 % Normal [facility] Comment on above: Order Comment: Speci men Type: BLOOD SPECIMENOrdering Facility: [facility] Address: [address] [place], [place] [id number] Performed By: #### 5 7021-8 ####[facility] LABIA [id number] [place] [address] [place] Erythrocyte distribution width (RBC) [Ratio] 17.2 % High 11.5-15.0 [facility] Comment on above: Order Comment: Speci men Type: BLOOD SPECIMENOrdering Facility: [facility] Address: [address] [place], [place] [address] Performed By: #### 5 7021-8 ####[facility] LABIA [id number] [place] [address] [place] Hematocrit (Bld) [Volume fraction] 39.3 % Normal 39.0-51.0 [facility] Comment on above: Order Comment: Speci men Type: BLOOD SPECIMENOrdering Facility: [facility] Address: [address] [place] [address] Performed By: #### 5 7021-8 ####[facility] LABIA [id number] [place] [address] [place] Hemoglobin (Bld) [Mass/Vol] 12.7 g/dL Low 13.0-17.0 [facility] Comment on above: Order Comment: Speci men Type: BLOOD SPECIMENOrdering Facility: [facility] Address: [address] [place] [address] Performed By: #### 5 7021-8 ####[facility] LABCLIA [id number] [place] [address] [place] IMMATURE GRAN % 0.7 % Normal [facility] Comment on above: Order Comment: Speci men Type: BLOOD SPECIMENOrdering Facility: [facility] Address: [address] [place], [place] [address] Performed By: #### 5 7021-8 ####[facility] LABIA [id number] [place] [address] [place] IMMATURE GRAN ABS 0.06 k/uL Normal <0.10 [facility] Comment on above: Order Comment: Speci men Type: BLOOD SPECIMENOrdering Facility: [facility] Address: [address] [place], [place] [address] Performed By: #### 5 7021-8 ####[facility] LABIA [id number] [place] [address] [place] Lymphocytes (Bld) [#/Vol] 1.69 10*3/uL Normal 1.00-4.00 [facility] Comment on above: Order Comment: Speci men Type: BLOOD SPECIMENOrdering Facility: [facility] Address: [address] [place], [place] [address] Performed By: #### 5 7021-8 ####[facility] LABIA [id number] [place] [address] [place] Lymphocytes/100 WBC (Bld) 18.7 % Normal [facility] Comment on above: Order Comment: Speci men Type: BLOOD SPECIMENOrdering Facility: [facility] Address: [address] [place], [place] [address] Performed By: #### 5 7021-8 ####[facility] LABIA [id number] [place] [address] [place] MCH (RBC) [Entitic mass] 30.2 pg Normal 26.0-34.0 [facility] Comment on above: Order Comment: Speci men Type: BLOOD SPECIMENOrdering Facility: [facility] Address: [address] [place] [address] Performed By: #### 5 7021-8 ####[facility] LABCLIA [id number] [address] [place] MCHC (RBC) [Mass/Vol] 32.3 g/dL Normal 30.5-36.0 [facility] Comment on above: Order Comment: Speci men Type: BLOOD SPECIMENOrdering Facility: [facility] Address: [address] [place] [address] Performed By: #### 5 7021-8 ####[facility] LABCLIA [id number] [address] [place] MCV (RBC) [Entitic vol] 93.3 fL Normal 80.0-100.0 C [facility] Comment on above: Order Comment: Speci men Type: BLOOD SPECIMENOrdering Facility: [facility] Address: [address] [place], [place] [address] Performed By: #### 5 7021-8 ####[facility] LABIA [id number] [place] [address] [place] Monocytes (Bld) [#/Vol] 0.62 10*3/uL Normal <0.87 [facility] Comment on above: Order Comment: Speci men Type: BLOOD SPECIMENOrdering Facility: [facility] Address: [address] [place], [place] [address] Performed By: #### 5 7021-8 ####[facility] LABCLIA [id number] [address] [place] Monocytes/100 WBC (Bld) 6.8 % Normal C [facility] Comment on above: Order Comment: Speci men Type: BLOOD SPECIMENOrdering Facility: [facility] Address: [address] [place] [address] Performed By: #### 5 7021-8 ####[facility] LABCLIA [id number] [place] [address] [place] Neutrophils (Bld) [#/Vol] 6.68 10*3/uL Normal 1.45-7.50 [facility] Comment on above: Order Comment: Speci men Type: BLOOD SPECIMENOrdering Facility: [facility] Address: [address] [place], [place] [address] Performed By: #### 5 7021-8 ####[facility] LABCLIA [id number] [place] [address] [place] Neutrophils/100 WBC (Bld) 73.7 % Normal [facility] Comment on above: Order Comment: Speci men Type: BLOOD SPECIMENOrdering Facility: [facility] Address: [address] [place], [place] [address] Performed By: #### 5 7021-8 ####[facility] LABCLIA [id number] [place] [address] [place] Nucleated RBC (Bld) [#/Vol] 10*3/uL Normal <0.01 [facility] Comment on above: Order Comment: Speci men Type: BLOOD SPECIMENOrdering Facility: [facility] Address: [address] [place] [address] Performed By: #### 5 7021-8 ####[facility] LABCLIA [id number] [place] [address] [place] Nucleated RBC/100 WBC (Bld) [Ratio] 0.0 /100 WBC Normal [facility] Comment on above: Order Comment: Speci men Type: BLOOD SPECIMENOrdering Facility: [facility] Address: [address] [place] [address] Performed By: #### 5 7021-8 ####[facility] LABCLIA [id number] [place] [address] [place] Platelet mean volume (Bld) [Entitic vol] 10.3 fL Normal 9.0-12.7 [facility] Comment on above: Order Comment: Speci men Type: BLOOD SPECIMENOrdering Facility: [facility] Address: [address] [place], [place] [address] Performed By: #### 5 7021-8 ####[facility] LABCLIA [id number] [place] [address] [place] Platelets (Bld) [#/Vol] 178 10*3/uL Normal 150-400 [facility] Comment on above: Order Comment: Speci men Type: BLOOD SPECIMENOrdering Facility: [facility] Address: [address] [place] [address] Performed By: #### 5 7021-8 ####[facility] LABIA [id number] [place] [address] [place] RBC (Bld) [#/Vol] 4.21 10*6/uL Normal 4.20-6.00 [facility] Comment on above: Order Comment: Speci men Type: BLOOD SPECIMENOrdering Facility: [facility] Address: [address] [place], [place] [address] Performed By: #### 5 7021-8 ####[facility] LABIA [id number] [place] [address] [place] WBC (Bld) [#/Vol] 9.06 10*3/uL Normal 3.70-11.00 [facility] Comment on above: Order Comment: Speci men Type: BLOOD SPECIMENOrdering Facility: [facility] Address: [address] [place], [place] [address] Performed By: #### 5 7021-8 ####[facility] LABIA [id number] [place] AVENUEDESK [id number] CBC panel Auto (Bld)on 09-23 Erythrocyte distribution width (RBC) [Ratio] 17.1 % High 11.5-15.0 [facility] Comment on above: Order Comment: Speci men Type: BLOOD SPECIMENOrdering Facility: [facility] Address: [address] [place] [address] Performed By: #### 5 8410-2 ####[facility] LABCLIA [id number] [address] Hematocrit (Bld) [Volume fraction] 41.2 % Normal 39.0-51.0 [facility] Comment on above: Order Comment: Speci men Type: BLOOD SPECIMENOrdering Facility: [facility] Address: [address] [place] [address] Performed By: #### 5 8410-2 ####[facility] LABIA [id number] [address] Hemoglobin (Bld) [Mass/Vol] 13.3 g/dL Normal 13.0-17.0 [facility] Comment on above: Order Comment: Speci men Type: BLOOD SPECIMENOrdering Facility: [facility] Address: [address] [place] [address] Performed By: #### 5 8410-2 ####[facility] LABIA [id number] [address] [place] [facility] MCH (RBC) [Entitic mass] 30.4 pg Normal 26.0-34.0 [facility] Comment on above: Order Comment: Speci men Type: BLOOD SPECIMENOrdering Facility: [facility] Address: [address] [place], [place] [address] Performed By: #### 5 8410-2 ####[facility] LABCLIA [id number] [address] [place] [facility] MCHC (RBC) [Mass/Vol] 32.3 g/dL Normal 30.5-36.0 [facility] Comment on above: Order Comment: Speci men Type: BLOOD SPECIMENOrdering Facility: [facility] Address: [address] [place], [place] [address] Performed By: #### 5 8410-2 ####[facility] LABCLIA [id number] [place] [address] [place] MCV (RBC) [Entitic vol] 94.1 fL Normal 80.0-100.0 [facility] Comment on above: Order Comment: Speci men Type: BLOOD SPECIMENOrdering Facility: [facility] Address: [address] [place], [place] [address] Performed By: #### 5 8410-2 ####[facility] LABIA [id number] [place] [address] [place] Nucleated RBC (Bld) [#/Vol] 10*3/uL Normal <0.01 [facility] Comment on above: Order Comment: Speci men Type: BLOOD SPECIMENOrdering Facility: [facility] Address: [address] [place], [place] [address] Performed By: #### 5 8410-2 ####[facility] LABIA [id number] [place] [address] [place] Platelet mean volume (Bld) [Entitic vol] 10.0 fL Normal 9.0-12.7 [facility] Comment on above: Order Comment: Speci men Type: BLOOD SPECIMENOrdering Facility: [facility] Address: [address] [place] [address] Performed By: #### 5 8410-2 ####[facility] LABIA [id number] [place] [address] [place] Platelets (Bld) [#/Vol] 186 10*3/uL Normal 150-400 [facility] Comment on above: Order Comment: Speci men Type: BLOOD SPECIMENOrdering Facility: [facility] Address: [address] [place], [place] [address] Performed By: #### 5 8410-2 ####[facility] LABIA [id number] [place] [address] [place] RBC (Bld) [#/Vol] 4.38 10*6/uL Normal 4.20-6.00 [facility] Comment on above: Order Comment: Speci men Type: BLOOD SPECIMENOrdering Facility: [facility] Address: [address] [place], [place] [address] Performed By: #### 5 8410-2 ####[facility] LABIA [id number] [place] [address] [place] WBC (Bld) [#/Vol] 8.98 10*3/uL Normal 3.70-11.00 [facility] Comment on above: Order Comment: Speci men Type: BLOOD SPECIMENOrdering Facility: [facility] Address: [address] [place] [address] Performed By: #### 5 8410-2 ####[facility] LABIA [id number] [place] [address] [place] CNOVon 09-23-2021 CNOV Normal [facility] Comprehensive metabolic 2000 panelon 09-23-2021 Albumin [Mass/Vol] 3.6 g/dL Low 3.9-4.9 [facility] Comment on above: Order Comment: Speci men Type: BLOOD SPECIMENOrdering Facility: [facility] Address: [address] [place] [address] Performed By: #### 2 4323-8, 01543-0, 35991-9 ####[facility] LABIA [id number] [place] [address] [place] ALP [Catalytic activity/Vol] 93 U/L Normal 38-113 [facility] Comment on above: Order Comment: Speci men Type: BLOOD SPECIMENOrdering Facility: [facility] Address: [address] [place], [place] [address] Performed By: #### 2 4323-8, 16504-3, 99286-0 ####[facility] LABCLIA [id number] [place] [address] [place] ALT [Catalytic activity/Vol] 112 U/L High 10-54 [facility] Comment on above: Order Comment: Speci men Type: BLOOD SPECIMENOrdering Facility: [facility] Address: [address] [place], [place] [address] Performed By: #### 2 4323-8, 93619-3, 99953-1 ####[facility] LABIA [id number] [place] [address] [place] Anion gap [Moles/Vol] 10 mmol/L Normal 9-18 [facility] Comment on above: Order Comment: Speci men Type: BLOOD SPECIMENOrdering Facility: [facility] Address: [address] [place], [place] [address] Performed By: #### 2 4323-8, 19399-7, ####[facility] LABIA [id number] [place] [address] [place] AST [Catalytic activity/Vol] 52 U/L High 14-40 [facility] Comment on above: Order Comment: Speci men Type: BLOOD SPECIMENOrdering Facility: [facility] Address: [address] [place] [address] Performed By: #### 2 4323-8, 43320-1, 77829-6 ####[facility] LABIA [id number] [place] [id number] [place] Bilirubin [Mass/Vol] 0.4 mg/dL Normal 0.2-1.3 [facility] Comment on above: Order Comment: Speci men Type: BLOOD SPECIMENOrdering Facility: [facility] Address: [address] [place] [address] Performed By: #### 2 4323-8, 61084-4, 33023-6 ####[facility] LABCLIA [id number] [place] [address] [place] Calcium [Mass/Vol] 8.8 mg/dL Normal 8.5-10.2 [facility] Comment on above: Order Comment: Speci men Type: BLOOD SPECIMENOrdering Facility: [facility] Address: [address] [place], [place] [address] Performed By: #### 2 4323-8, 65129-7, ####[facility] LABCLIA [id number] [place] [address] [place] Chloride [Moles/Vol] 101 mmol/L Normal 97-105 [facility] Comment on above: Order Comment: Speci men Type: BLOOD SPECIMENOrdering Facility: [facility] Address: [address] [place] [address] Performed By: #### 2 4323-8, 27913-9, ####[facility] LABCLIA [id number] [place] [address] [place] CO2 [Moles/Vol] 31 mmol/L High 22-30 [facility] Comment on above: Order Comment: Speci men Type: BLOOD SPECIMENOrdering Facility: [facility] Address: [address] [place] [address] Performed By: #### 2 4323-8, 92533-3, ####[facility] LABCLIA [id number] [place] [id number] [place] Creatinine [Mass/Vol] 1.24 mg/dL High 0.73-1.22 [facility] Comment on above: Order Comment: Speci men Type: BLOOD SPECIMENOrdering Facility: [facility] Address: [address] [place], [place] [address] Performed By: #### 2 4323-8, 72804-5, 20679-3 ####[facility] LABCLIA [id number] [place] [address] [place] ESTIMATED GLOMERULAR FILTRATION RATE 68 mL/min/1.73m??? Normal >=60 [facility] Comment on above: Order Comment: Aaliyah gibson Type: BLOOD SPECIMENOrdering Facility: [facility] Address: [address] [place] [address] Result Comment: Laurita mated Glomerular Filtration Rate [...] actual GFR. Performed By: #### 2 4323-8, 16089-8, 01228-7 ####[facility] LABCLIA [id number] [place] [address] [place] Glucose [Mass/Vol] 176 mg/dL High 74-99 [facility] Comment on above: Order Comment: Aaliyah gibson Type: BLOOD SPECIMENOrdering Facility: [facility] Address: [address] [place] [address] Result Comment: The [place] Diabetes Association (ADA) provides guidance for cutoff [...] Standards of Medical Care in Diabetes 2016, [place] [employer]. Diabetes Care. 2016.39(Suppl 1). Performed By: #### 2 4323-8, 71549-6, 24464-6 ####[facility] LABCLIA [id number] [address] [address] [place] Potassium [Moles/Vol] 3.2 mmol/L Low 3.7-5.1 [facility] Comment on above: Order Comment: Speci men Type: BLOOD SPECIMENOrdering Facility: [facility] Address: [address] [place], [place] [address] Performed By: #### 2 4323-8, 12276-8, ####[facility] LABCLIA [id number] [place] [address] [place] Protein [Mass/Vol] 6.0 g/dL Low 6.3-8.0 [facility] Comment on above: Order Comment: Speci men Type: BLOOD SPECIMENOrdering Facility: [facility] Address: [address] [place], [place] [address] Performed By: #### 2 4323-8, 86285-1, ####[facility] LABCLIA [id number] [place] [address] [place] Sodium [Moles/Vol] 142 mmol/L Normal 136-144 [facility] Comment on above: Order Comment: Speci men Type: BLOOD SPECIMENOrdering Facility: [facility] Address: [address] [place] [address] Performed By: #### 2 4323-8, 66868-3, ####[facility] LABCLIA [id number] [address] [address] [place] Urea nitrogen [Mass/Vol] 24 mg/dL Normal 9-24 [facility] Comment on above: Order Comment: Speci men Type: BLOOD SPECIMENOrdering Facility: [facility] Address: [address] [place], [place] [address] Performed By: #### 2 4323-8, 78958-4, 14802-3 ####[facility] LABCLIA [id number] [place] [address] [place] ECG COMPLETEon 09-23-2021 ECG COMPLETE Normal [facility] Lipid 1996 panelon 2 Cholesterol [Mass/Vol] 152 mg/dL Normal <200 [facility] Comment on above: Order Comment: Speci men Type: BLOOD SPECIMENOrdering Facility: [facility] Address: [address] [place], [place] [address] Result Comment: <200 mg/dL, Desirable 200-239 mg/dL, Borderline high>239 mg/dL, High Performed By: #### 3 016-3, 79137-7, 58848-0, ####[facility] LABCLIA [id number] [address] [place] Cholesterol in HDL [Mass/Vol] 55 mg/dL Normal >39 [facility] Comment on above: Order Comment: Speci men Type: BLOOD SPECIMENOrdering Facility: [facility] Address: [address] [place] [address] Result Comment: 40-5 9 mg/dL, Acceptable>59 mg/dL, High: Negative risk factor for coronary heart disease<40 mg/dL, Low: Positive risk factor for coronary heart disease Performed By: #### 3 016-3, 53277-3, 01653-4, ####[facility] LABCLIA [id number] [address] [place] Cholesterol in LDL [Mass/Vol] 87 mg/dL Normal <100 [facility] Comment on above: Order Comment: Speci men Type: BLOOD SPECIMENOrdering Facility: [facility] Address: [address] [place] [address] Result Comment: <100 mg/dL, Optimal 100-129 mg/dL, Near optimal/above optimal 130-159 mg/dL, Borderline high 160-189 mg/dL, High>189 mg/dL, Very highSecondary prevention optimal LDL Cholesterol levels are recommended to be < 70 mg/dL Performed By: #### 3 016-3, 12853-2, 77347-3, ####[facility] LABCLIA [id number] [address] [place] Cholesterol in LDL/Cholesterol in HDL [Mass ratio] 1.58 {ratio} Normal <2.54 [facility] Comment on above: Order Comment: Speci men Type: BLOOD SPECIMENOrdering Facility: [facility] Address: [address] [place] [address] Result Comment: Refe yakelince:1. National Cholesterol Education Program ATP III Guideline At-A-Glance Quick Desk Reference: National Heart, Lung, and Blood [place]. National Institutes of Health. 2001: NIH Publication No. 01-3305.2. An International Atherosclerosis Society position paper: global recommendations for the management of dyslipidemia: executive summary, Atherosclerosis. 2014: 232(2):410-413. Performed By: #### 3 016-3, 23389-1, 43675-6, ####[facility] LABIA [id number] [place] [address] [place] Cholesterol in VLDL [Mass/Vol] 10 mg/dL Normal <30 [facility] Comment on above: Order Comment: Speci men Type: BLOOD SPECIMENOrdering Facility: [facility] Address: [address] [place] [address] Performed By: #### 3 016-3, 79271-5, 50759-3, ####[facility] LABIA [id number] [address] [place] Cholesterol non HDL [Mass/Vol] 97 mg/dL Normal <130 [facility] Comment on above: Order Comment: Speci men Type: BLOOD SPECIMENOrdering Facility: [facility] Address: [address] [place] [address] Result Comment: <130 mg/dL, Optimal 130-159 mg/dL, Near optimal/above optimal 160-189 mg/dL, Borderline high 190-219 mg/dL, High>219 mg/dL, Very highSecondary prevention optimal non HDL Cholesterol levels are recommended to be <100 mg/dL Performed By: #### 3 016-3, 56198-9, 56368-3, ####[facility] LABCLIA [id number] [place] [address] [place] Cholesterol.total/Urvashi sterol in HDL [Mass ratio] 2.76 {ratio} Normal <5.10 [facility] Comment on above: Order Comment: Speci men Type: BLOOD SPECIMENOrdering Facility: [facility] Address: [address] [place] [address] Performed By: #### 3 016-3, 30137-7, 69199-5, ####[facility] LABCLIA [id number] [address] [place] FASTING TIME 9 hrs Normal [facility] Comment on above: Order Comment: Speci men Type: BLOOD SPECIMENOrdering Facility: [facility] Address: [address] [place] [address] Performed By: #### 3 016-3, 76942-4, 04619-9, ####[facility] LABCLIA [id number] [address] [place] [facility] Triglyceride [Mass/Vol] 51 mg/dL Normal <150 [facility] Comment on above: Order Comment: Speci men Type: BLOOD SPECIMENOrdering Facility: [facility] Address: [address] [place] [address] Result Comment: <150 mg/dL, Normal 150-199 mg/dL, Borderline high 200-499 mg/dL, High>499 mg/dL, Very high Performed By: #### 3 016-3, 54683-7, 20436-0, ####[facility] LABCLIA [id number] [place] [id number] [place] Magnesium SerPl-mCncon 07-19 -2022 Magnesium [Mass/Vol] 2.0 mg/dL Normal 1.7-2.3 [facility] Comment on above: Order Comment: Speci men Type: BLOOD SPECIMENOrdering Facility: [facility] Address: [address] [place] [address] Performed By: #### 3 016-3, 97973-1, 76374-7, 17702-0 ####[facility] LABCLIA [id number] [place] [address] [place] Magnesium [Mass/Vol] 2.1 mg/dL Normal 1.7-2.3 [facility] Comment on above: Order Comment: Speci men Type: BLOOD SPECIMENOrdering Facility: [facility] Address: [address] [place] [address] Performed By: #### 2 4323-8, 13684-1, ####[facility] LABCLIA [id number] [place] [address] [place] NT-proBNP [facility] 09-23 Natriuretic peptide.B prohormone N-Terminal [Mass/Vol] 1946 pg/mL High <125 [facility] Comment on above: Order Comment: Speci men Type: BLOOD SPECIMENOrdering Facility: [facility] Address: [address] [place] [address] Performed By: #### 2 4323-8, 66230-2, ####[facility] LABCLIA [id number] [place] [address] [place] POTASSIUM BLDon 09-23-2021 Potassium [Moles/Vol] 3.4 mmol/L Low 3.7-5.1 [facility] Comment on above: Order Comment: Speci men Type: BLOOD SPECIMENOrdering Facility: [facility] Address: [address] [place] [address] Performed By: #### K 1 ####[facility] LABCLIA [id number] [address] [place] Potassium [Moles/Vol] 3.5 mmol/L Low 3.7-5.1 [facility] Comment on above: Order Comment: Speci men Type: BLOOD SPECIMENOrdering Facility: [facility] Address: [address] [place] [address] Performed By: #### K 1 ####[facility] LABCLIA [id number] [address] PT panel Coag (PPP)on 2021 INR Coag (PPP) [Relative time] 1.2 {INR} Normal 0.9-1.3 [facility] Comment on above: Order Comment: Speci paige Type: BLOOD SPECIMENOrdering Facility: [facility] Address: [address] [place] [address] Result Comment: Constanza min K Antagonist (VKA) Therapeutic Range: INR 2 to 3 (Target INR of 2.5)Note: For patients treated with VKA drugs, such as warfarin, the [place] [employer] 2012 Guideline recommends [...] al. Chest 2012, 141:7S-47SNishimura RA, et al. [facility] 2017, 70: 252-289 Performed By: #### [facility], 06271-2 ####[facility] LABCLIA [id number] [place] [address] [place] PT Coag (PPP) [Time] 12.3 s Normal 9.7-13.0 [facility] Comment on above: Order Comment: Speci men Type: BLOOD SPECIMENOrdering Facility: [facility] Address: [address] [place] [address] Performed By: #### P TTA, 67999-8 ####[facility] LABCLIA [id number] [place] [address] [place] INR Coag (PPP) [Relative time] 1.1 {INR} Normal 0.9-1.3 [facility] Comment on above: Order Comment: Speci men Type: BLOOD SPECIMENOrdering Facility: [facility] Address: [address] [place] [address] Result Comment: Constanza min K Antagonist (VKA) Therapeutic Range: INR 2 to 3 (Target INR of 2.5)Note: For patients treated with VKA drugs, such as warfarin, the [place] [employer] 2012 Guideline recommends [...] al. Chest 2012, 141:7S-47SNishnini RA, et al. [facility] 2017, 70: 252-289 Performed By: #### 3 4528-0, 70269-7 ####[facility] LABCLIA [id number] [place] [address] [place] PT Coag (PPP) [Time] 11.9 s Normal 9.7-13.0 [facility] Comment on above: Order Comment: Speci men Type: BLOOD SPECIMENOrdering Facility: [facility] Address: [address] [place] [address] Performed By: #### 3 4528-0, 65759-4 ####[facility] [id number] [address] PTT, ANTICOAGULANT THERAPYon 09-23-2021 aPTT Coag (PPP) [Time] s High 23.0-32.4 [facility] Comment on above: Order Comment: Speci men Type: BLOOD SPECIMENOrdering Facility: [facility] Address: [address] [place] [address] Result Comment: Samp le checked for clot.Result rechecked. Performed By: #### P TTAC ####[facility] [id number] [address] aPTT Coag (PPP) [Time] s High 23.0-32.4 [facility] Comment on above: Order Comment: Speci men Type: BLOOD SPECIMENOrdering Facility: [facility] Address: [address] [place] [address] Result Comment: Samp le checked for clot.Result rechecked. Performed By: #### P TTAC ####[facility] [id number] [address] STATES [facility] aPTT Coag (PPP) [Time] 73.9 s High 23.0-32.4 [facility] Comment on above: Order Comment: Speci men Type: BLOOD SPECIMENOrdering Facility: [facility] Address: [address] [place] [address] Performed By: #### P TTAC, 46089-3 ####[facility] [id number] [address] OF [facility] SARS-CoV-2 RNA Resp Ql SANDOVAL+p robeon 09-23-2021 SARS-CoV-2 (COVID-19) RNA SANDOVAL+probe Ql (Resp) COVID 19 RESULT: SARS-CoV-2 (Agent of COVID-19) Not Detected by RT-PCR or equivalent method. This test has been authorized by FDA under an Emergency Use Authorization (EUA). Normal [facility] Comment on above: Performed By: #### 9 4500-6 ####[facility] LABCLIA [id number] [place] [address] [place] TSH SerPl-aCncon 09-23-2021 TSH Qn 1.870 m[IU]/L Normal 0.270-4.20 0 [facility] Comment on above: Order Comment: Speci men Type: BLOOD SPECIMENOrdering Facility: [facility] Address: [address] [place] [address] Performed By: #### 3 016-3, 32003-4, 28174-5, 32462-3 ####[facility] LABIA [id number] [place] [address] [place] aPTT PPPon 09-23-2021 aPTT Coag (PPP) [Time] 25.4 s Normal 23.0-32.4 [facility] Comment on above: Order Comment: Speci men Type: BLOOD SPECIMENOrdering Facility: [facility] Address: [address] [place] [address] Performed By: #### 3 4528-0, 54859-3 ####[facility] [id number] [place] [address] [place] CNOVon 09-22-2021 CNOV Normal [facility] HISTORY PHYSICALon HISTORY PHYSICAL Normal [facility] NURSING PROGon 09-22-2021 NURSING PROG Normal [facility] XR CHEST 1V FRONTAL PORTon 0 09-22-2021 XR CHEST 1V FRONTAL PORT Normal [facility] CNPNon 09-19-2021 CNPN Normal [facility] CNPNon 09-16-2021 CNPN Normal [facility] CBC W Auto Differential pane l (Bld)on 09-11-2021 Basophils (Bld) [#/Vol] 10*3/uL Normal <0.11 [facility] Comment on above: Order Comment: Speci men Type: BLOOD SPECIMENOrdering Facility: [facility] Address: [address] [place], [place] [address] Performed By: #### 5 7021-8 ####[facility] [id number] [place] [address] [place] Basophils/100 WBC (Bld) 0.3 % Normal C [facility] Comment on above: Order Comment: Speci men Type: BLOOD SPECIMENOrdering Facility: [facility] Address: [address] [place] [address] Performed By: #### 5 7021-8 ####[facility] [id number] [place] [address] [place] Differential cell count method Nom (Bld) Auto Normal [facility] Comment on above: Order Comment: Speci men Type: BLOOD SPECIMENOrdering Facility: [facility] Address: [address] [place], [place] [address] Performed By: #### 5 7021-8 ####[facility] [id number] [place] [address] [place] Eosinophils (Bld) [#/Vol] 0.03 10*3/uL Normal <0.46 [facility] Comment on above: Order Comment: Speci men Type: BLOOD SPECIMENOrdering Facility: [facility] Address: [address] [place], [place] [address] Performed By: #### 5 7021-8 ####[facility] [id number] [place] [address] Eosinophils/100 WBC (Bld) 0.5 % Normal [facility] Comment on above: Order Comment: Speci men Type: BLOOD SPECIMENOrdering Facility: [facility] Address: [address] [place], [place] [address] Performed By: #### 5 7021-8 ####[facility] [id number] [place] [address] [place] Erythrocyte distribution width (RBC) [Ratio] 15.5 % High 11.5-15.0 [facility] Comment on above: Order Comment: Speci men Type: BLOOD SPECIMENOrdering Facility: [facility] Address: [address] [place] [address] Performed By: #### 5 7021-8 ####[facility] [id number] [place] [address] [place] Hematocrit (Bld) [Volume fraction] 42.0 % Normal 39.0-51.0 [facility] Comment on above: Order Comment: Speci men Type: BLOOD SPECIMENOrdering Facility: [facility] Address: [address] [place] [address] Performed By: #### 5 7021-8 ####[facility] [id number] [place] [address] [place] Hemoglobin (Bld) [Mass/Vol] 13.5 g/dL Normal 13.0-17.0 [facility] Comment on above: Order Comment: Speci men Type: BLOOD SPECIMENOrdering Facility: [facility] Address: [address] [place] [address] Performed By: #### 5 7021-8 ####[facility] [id number] [place] [address] OF [facility] IMMATURE GRAN % 0.3 % Normal [facility] Comment on above: Order Comment: Speci men Type: BLOOD SPECIMENOrdering Facility: [facility] Address: [address] [place] [address] Performed By: #### 5 7021-8 ####[facility] [id number] [place] [address] [place] IMMATURE GRAN ABS <0.03 Normal <0.10 [facility] Comment on above: Order Comment: Speci men Type: BLOOD SPECIMENOrdering Facility: [facility] Address: [address] [place], [place] [address] Performed By: #### 5 7021-8 ####[facility] [id number] [place] [address] [place] Lymphocytes (Bld) [#/Vol] 1.12 10*3/uL Normal 1.00-4.00 [facility] Comment on above: Order Comment: Speci men Type: BLOOD SPECIMENOrdering Facility: [facility] Address: [address] [place], [place] [address] Performed By: #### 5 7021-8 ####[facility] [id number] [place] [address] [place] Lymphocytes/100 WBC (Bld) 17.2 % Normal [facility] Comment on above: Order Comment: Speci men Type: BLOOD SPECIMENOrdering Facility: [facility] Address: [address] [place], [place] [address] Performed By: #### 5 7021-8 ####[facility] [id number] [place] [address] [place] MCH (RBC) [Entitic mass] 29.6 pg Normal 26.0-34.0 [facility] Comment on above: Order Comment: Speci men Type: BLOOD SPECIMENOrdering Facility: [facility] Address: [address] [place], [place] [address] Performed By: #### 5 7021-8 ####[facility] [id number] [place] [address] [place] MCHC (RBC) [Mass/Vol] 32.1 g/dL Normal 30.5-36.0 [facility] Comment on above: Order Comment: Speci men Type: BLOOD SPECIMENOrdering Facility: [facility] Address: [address] [place], [place] [address] Performed By: #### 5 7021-8 ####[facility] [id number] [place] [address] [place] MCV (RBC) [Entitic vol] 92.1 fL Normal 80.0-100.0 C [facility] Comment on above: Order Comment: Speci men Type: BLOOD SPECIMENOrdering Facility: [facility] Address: [address] [place], [place] [address] Performed By: #### 5 7021-8 ####[facility] [id number] [place] [address] [place] Monocytes (Bld) [#/Vol] 0.53 10*3/uL Normal <0.87 [facility] Comment on above: Order Comment: Speci men Type: BLOOD SPECIMENOrdering Facility: [facility] Address: [address] [place], [place] [address] Performed By: #### 5 7021-8 ####[facility] [id number] [place] [address] [place] Monocytes/100 WBC (Bld) 8.1 % Normal C [facility] Comment on above: Order Comment: Speci men Type: BLOOD SPECIMENOrdering Facility: [facility] Address: [address] [place], [place] [address] Performed By: #### 5 7021-8 ####[facility] [id number] [place] [address] [place] Neutrophils (Bld) [#/Vol] 4.81 10*3/uL Normal 1.45-7.50 [facility] Comment on above: Order Comment: Speci men Type: BLOOD SPECIMENOrdering Facility: [facility] Address: [address] [place], [place] [address] Performed By: #### 5 7021-8 ####[facility] [id number] [place] [address] [place] Neutrophils/100 WBC (Bld) 73.6 % Normal [facility] Comment on above: Order Comment: Speci men Type: BLOOD SPECIMENOrdering Facility: [facility] Address: [address] [place] [address] Performed By: #### 5 7021-8 ####[facility] [id number] [place] [address] [place] Nucleated RBC (Bld) [#/Vol] 10*3/uL Normal <0.01 [facility] Comment on above: Order Comment: Speci men Type: BLOOD SPECIMENOrdering Facility: [facility] Address: [address] [place], [place] [address] Performed By: #### 5 7021-8 ####[facility] [id number] [place] [address] [place] Nucleated RBC/100 WBC (Bld) [Ratio] 0.0 /100 WBC Normal [facility] Comment on above: Order Comment: Speci men Type: BLOOD SPECIMENOrdering Facility: [facility] Address: [address] [place], [place] [address] Performed By: #### 5 7021-8 ####[facility] [id number] [place] [address] [place] Platelet mean volume (Bld) [Entitic vol] 9.7 fL Normal 9.0-12.7 [facility] Comment on above: Order Comment: Speci men Type: BLOOD SPECIMENOrdering Facility: [facility] Address: [address] [place], [place] [address] Performed By: #### 5 7021-8 ####[facility] [id number] [place] [address] [place] Platelets (Bld) [#/Vol] 267 10*3/uL Normal 150-400 [facility] Comment on above: Order Comment: Speci men Type: BLOOD SPECIMENOrdering Facility: [facility] Address: [address] [place], [place] [address] Performed By: #### 5 7021-8 ####[facility] [id number] [place] [address] [place] RBC (Bld) [#/Vol] 4.56 10*6/uL Normal 4.20-6.00 [facility] Comment on above: Order Comment: Speci men Type: BLOOD SPECIMENOrdering Facility: [facility] Address: [address] [place], [place] [address] Performed By: #### 5 7021-8 ####[facility] [place] [id number] [place] [address] [place] WBC (Bld) [#/Vol] 6.53 10*3/uL Normal 3.70-11.00 [facility] Comment on above: Order Comment: Speci men Type: BLOOD SPECIMENOrdering Facility: [facility] Address: [address] [place], [place] [address] Performed By: #### 5 7021-8 ####[facility] [id number] [place] [address] [place] CNNURSEon 09-11-2021 CNNURSE Normal [facility] CNOVSPon 09-11-2021 CNOVSP Normal [facility] Comprehensive metabolic 2000 panelon 09-11-2021 Albumin [Mass/Vol] 4.1 g/dL Normal 3.9-4.9 [facility] Comment on above: Order Comment: Speci men Type: BLOOD SPECIMENOrdering Facility: [facility] Address: [address] [place], [place] [address] Performed By: #### 3 084-1, 81471-7, 65489-0 ####[facility] [id number] [place] [address] [place] ALP [Catalytic activity/Vol] 80 U/L Normal 38-113 [facility] Comment on above: Order Comment: Speci men Type: BLOOD SPECIMENOrdering Facility: [facility] Address: [address] [place], [place] [address] Performed By: #### 3 084-1, 02902-6, ####[facility] [id number] [place] [address] [place] ALT [Catalytic activity/Vol] 82 U/L High 10-54 [facility] Comment on above: Order Comment: Speci men Type: BLOOD SPECIMENOrdering Facility: [facility] Address: [address] [place], [place] [address] Performed By: #### 3 084-1, 84702-2, ####[facility] [id number] [place] [address] [place] Anion gap [Moles/Vol] 12 mmol/L Normal 9-18 [facility] Comment on above: Order Comment: Speci men Type: BLOOD SPECIMENOrdering Facility: [facility] Address: [address] [place], [place] [address] Performed By: #### 3 084-1, , ####[facility] [id number] [place] [address] [place] AST [Catalytic activity/Vol] 58 U/L High 14-40 [facility] Comment on above: Order Comment: Speci men Type: BLOOD SPECIMENOrdering Facility: [facility] Address: [address] [place], [place] [address] Performed By: #### 3 084-1, , ####[facility] [id number] [place] [address] [place] Bilirubin [Mass/Vol] 0.5 mg/dL Normal 0.2-1.3 [facility] Comment on above: Order Comment: Speci men Type: BLOOD SPECIMENOrdering Facility: [facility] Address: [address] [place], [place] [address] Performed By: #### 3 084-1, 93804-3, ####[facility] [id number] [place] [address] [place] Calcium [Mass/Vol] 9.4 mg/dL Normal 8.5-10.2 [facility] Comment on above: Order Comment: Speci men Type: BLOOD SPECIMENOrdering Facility: [facility] Address: [address] [place] [address] Performed By: #### 3 084-1, , ####[facility] [id number] [place] [address] [place] Chloride [Moles/Vol] 103 mmol/L Normal 97-105 [facility] Comment on above: Order Comment: Speci men Type: BLOOD SPECIMENOrdering Facility: [facility] Address: [address] [place], [place] [address] Performed By: #### 3 084-1, , ####[facility] [id number] [place] [address] [place] CO2 [Moles/Vol] 29 mmol/L Normal 22-30 [facility] Comment on above: Order Comment: Speci men Type: BLOOD SPECIMENOrdering Facility: [facility] Address: [address] [place], [place] [address] Performed By: #### 3 084-1, , ####[facility] [id number] [place] [address] [place] Creatinine [Mass/Vol] 1.18 mg/dL Normal 0.73-1.22 [facility] Comment on above: Order Comment: Speci men Type: BLOOD SPECIMENOrdering Facility: [facility] Address: [address] [place], [place] [address] Performed By: #### 3 084-1, 66945-8, ####[facility] [id number] [address] [place] ESTIMATED GLOMERULAR FILTRATION RATE 72 mL/min/1.73m??? Normal >=60 [facility] Comment on above: Order Comment: Aaliyah gibson Type: BLOOD SPECIMENOrdering Facility: [facility] Address: [address] [place], [place] [address] Result Comment: Laurita mated Glomerular Filtration Rate [...] actual GFR. Performed By: #### 3 084-1, 50478-6, 86910-6 ####[facility] [id number] [place] [address] [place] Glucose [Mass/Vol] 130 mg/dL High 74-99 [facility] Comment on above: Order Comment: Aaliyah paige Type: BLOOD SPECIMENOrdering Facility: [facility] Address: [address] [place], [place] [address] Result Comment: The [place] [employer] (ADA) provides guidance for cutoff [...] Standards of Medical Care in Diabetes 2016, [place] [employer]. Diabetes Care. 2016.39(Suppl 1). Performed By: #### 3 084-1, 56265-0, 72444-4 ####[facility] [id number] [place] [address] [place] Potassium [Moles/Vol] 3.3 mmol/L Low 3.7-5.1 [facility] Comment on above: Order Comment: Speci men Type: BLOOD SPECIMENOrdering Facility: [facility] Address: [address] [place], [place] [address] Performed By: #### 3 084-1, 54613-0, ####[facility] [id number] [place] [address] [place] Protein [Mass/Vol] 6.9 g/dL Normal 6.3-8.0 [facility] Comment on above: Order Comment: Speci men Type: BLOOD SPECIMENOrdering Facility: [facility] Address: [address] [place], [place] [address] Performed By: #### 3 084-1, 06300-6, ####[facility] [id number] [place] [address] [place] Sodium [Moles/Vol] 144 mmol/L Normal 136-144 [facility] Comment on above: Order Comment: Speci men Type: BLOOD SPECIMENOrdering Facility: [facility] Address: [address] [place], [place] [address] Performed By: #### 3 084-1, 61137-3, 80226-5 ####[facility] [id number] [place] [address] [place] Urea nitrogen [Mass/Vol] 19 mg/dL Normal 9-24 [facility] Comment on above: Order Comment: Speci men Type: BLOOD SPECIMENOrdering Facility: [facility] Address: [address] [place] [address] Performed By: #### 3 084-1, 32239-1, 25618-7 ####[facility] [id number] [place] [address] LDH SerPl-cCncon 09-11-2021 LDH [Catalytic activity/Vol] 297 U/L High 135-225 [facility] Comment on above: Order Comment: Aaliyah gibson Type: BLOOD SPECIMENOrdering Facility: [facility] Address: [address] [place] [address] Performed By: #### 2 532-0 ####[facility] [id number] [place] [address] Magnesium SerPl-mCncon 09-11 Magnesium [Mass/Vol] 2.1 mg/dL Normal 1.7-2.3 [facility] Comment on above: Order Comment: Ronyi paige Type: BLOOD SPECIMENOrdering Facility: [facility] Address: [address] [place] [address] Performed By: #### 3 084-1, 73571-1, 49367-7 ####[facility] [id number] [place] [address] PT panel Coag (PPP)on 2021 INR Coag (PPP) [Relative time] 1.1 {INR} Normal 0.9-1.3 [facility] Comment on above: Order Comment: Aaliyah gibson Type: BLOOD SPECIMENOrdering Facility: [facility] Address: [address] [place] [address] Result Comment: Constanza min K Antagonist (VKA) Therapeutic Range: INR 2 to 3 (Target INR of 2.5)Note: For patients treated with VKA drugs, such as warfarin, the [place] [employer] 2012 Guideline recommends [...] al. Chest 2012, 141:7S-47SNishimkhalida RA, et al. [facility] 2017, 70: 252-289 Performed By: #### 3 4528-0, 43226-2 ####[facility] [id number] [place] [address] [place] PT Coag (PPP) [Time] 11.3 s Normal 9.7-13.0 [facility] Comment on above: Order Comment: Speci men Type: BLOOD SPECIMENOrdering Facility: [facility] Address: [address] [place] [address] Performed By: #### 3 4528-0, 01169-3 ####[facility] [id number] [place] [address] [place] Phosphate SerPl-mCncon 09-11 Phosphate [Mass/Vol] 3.5 mg/dL Normal 2.7-4.8 [facility] Comment on above: Order Comment: Ronyi paige Type: BLOOD SPECIMENOrdering Facility: [facility] Address: [address] [place] [address] Performed By: #### 2 777-1 ####[facility] [id number] [place] [address] [place] Urate SerPl-mCncon Urate [Mass/Vol] 9.2 mg/dL High 4.0-8.1 [facility] Comment on above: Order Comment: Speci men Type: BLOOD SPECIMENOrdering Facility: [facility] Address: [address] [place] [address] Performed By: #### 3 084-1, 82520-6, 29413-7 ####[facility] [id number] [place] [address] [place] aPTT PPPon 09-11-2021 aPTT Coag (PPP) [Time] 28.1 s Normal 23.0-32.4 [facility] Comment on above: Order Comment: Speci men Type: BLOOD SPECIMENOrdering Facility: [facility] Address: [address] [place] [address] Performed By: #### 3 4528-0, 91932-4 ####[facility] [id number] [address] [place] CNPNon 09-05-2021 CNPN Normal [facility] CBC panel Auto (Bld)on 09-04 Erythrocyte distribution width (RBC) [Ratio] 15.2 % High 11.5-15.0 [facility] Comment on above: Order Comment: Speci men Type: BLOOD SPECIMENOrdering Facility: [facility] Address: [address] [place] [address] Performed By: #### 5 8410-2 ####[facility] [id number] [address] [place] Hematocrit (Bld) [Volume fraction] 40.7 % Normal 39.0-51.0 [facility] Comment on above: Order Comment: Speci men Type: BLOOD SPECIMENOrdering Facility: [facility] Address: [address] [place] [address] Performed By: #### 5 8410-2 ####[facility] [id number] [place] [address] [place] Hemoglobin (Bld) [Mass/Vol] 13.1 g/dL Normal 13.0-17.0 [facility] Comment on above: Order Comment: Speci men Type: BLOOD SPECIMENOrdering Facility: [facility] Address: [address] [place], [place] [address] Performed By: #### 5 8410-2 ####[facility] LABIA [id number] [address] MCH (RBC) [Entitic mass] 29.5 pg Normal 26.0-34.0 [facility] Comment on above: Order Comment: Speci men Type: BLOOD SPECIMENOrdering Facility: [facility] Address: [address] [place], [place] [address] Performed By: #### 5 8410-2 ####[facility] LABIA [id number] [address] [place] MCHC (RBC) [Mass/Vol] 32.2 g/dL Normal 30.5-36.0 [facility] Comment on above: Order Comment: Speci men Type: BLOOD SPECIMENOrdering Facility: [facility] Address: [address] [place], [place] [address] Performed By: #### 5 8410-2 ####[facility] LABIA [id number] [address] [place] MCV (RBC) [Entitic vol] 91.7 fL Normal 80.0-100.0 C [facility] Comment on above: Order Comment: Speci men Type: BLOOD SPECIMENOrdering Facility: [facility] Address: [address] [place] [address] Performed By: #### 5 8410-2 ####[facility]IA [id number] [address] [place] Nucleated RBC (Bld) [#/Vol] 10*3/uL Normal <0.01 [facility] Comment on above: Order Comment: Speci men Type: BLOOD SPECIMENOrdering Facility: [facility] Address: [address] [place], [place] [address] Performed By: #### 5 8410-2 ####[facility] LABCLIA [id number] [place] [address] [place] Platelet mean volume (Bld) [Entitic vol] 10.1 fL Normal 9.0-12.7 [facility] Comment on above: Order Comment: Speci men Type: BLOOD SPECIMENOrdering Facility: [facility] Address: [address] [place], [place] [address] Performed By: #### 5 8410-2 ####[facility] [id number] [place] [address] [place] Platelets (Bld) [#/Vol] 214 10*3/uL Normal 150-400 [facility] Comment on above: Order Comment: Speci men Type: BLOOD SPECIMENOrdering Facility: [facility] Address: [address] [place], [place] [address] Performed By: #### 5 8410-2 ####[facility]IA [id number] [place] [address] [place] RBC (Bld) [#/Vol] 4.44 10*6/uL Normal 4.20-6.00 [facility] Comment on above: Order Comment: Speci men Type: BLOOD SPECIMENOrdering Facility: [facility] Address: [address] [place], [place] [address] Performed By: #### 5 8410-2 ####[facility]IA [id number] [place] [address] [place] WBC (Bld) [#/Vol] 6.02 10*3/uL Normal 3.70-11.00 [facility] Comment on above: Order Comment: Speci men Type: BLOOD SPECIMENOrdering Facility: [facility] Address: [address] [place], [place] [address] Performed By: #### 5 8410-2 ####[facility]IA [id number] [address] [place] CNDSon 09-04-2021 CNDS Normal [facility] CONSULTon 09-04-2021 CONSULT Normal [facility] Comprehensive metabolic 2000 panelon 09-04-2021 Albumin [Mass/Vol] 3.5 g/dL Low 3.9-4.9 [facility] Comment on above: Order Comment: Speci men Type: BLOOD SPECIMENOrdering Facility: [facility] Address: [address] [place], [place] [address] Performed By: #### 2 432-8, ####[facility] LABCLIA [id number] [facility] [place] [address] [place] ALP [Catalytic activity/Vol] 72 U/L Normal 38-113 [facility] Comment on above: Order Comment: Speci men Type: BLOOD SPECIMENOrdering Facility: [facility] Address: [address] [place], [place] [address] Performed By: #### 2 432-8, ####[facility] LABCLIA [id number] [place] [address] [place] ALT [Catalytic activity/Vol] 56 U/L High 10-54 [facility] Comment on above: Order Comment: Speci men Type: BLOOD SPECIMENOrdering Facility: [facility] Address: [address] [place], [place] [address] Performed By: #### 2 4323-8, ####[facility] LABCLIA [id number] [facility] [place] [address] [place] Anion gap [Moles/Vol] 10 mmol/L Normal 9-18 [facility] Comment on above: Order Comment: Speci men Type: BLOOD SPECIMENOrdering Facility: [facility] Address: [address] [place], [place] [address] Performed By: #### 2 4323-8, 27193-0 ####[facility] LABCLIA [id number] [place] [address] [place] AST [Catalytic activity/Vol] 25 U/L Normal 14-40 [facility] Comment on above: Order Comment: Speci men Type: BLOOD SPECIMENOrdering Facility: [facility] Address: [address] [place], [place] [address] Performed By: #### 2 4323-8, 97664-4 ####[facility] LABCLIA [id number] [place] [address] [place] Bilirubin [Mass/Vol] 0.6 mg/dL Normal 0.2-1.3 [facility] Comment on above: Order Comment: Speci men Type: BLOOD SPECIMENOrdering Facility: [facility] Address: [address] [place] [address] Performed By: #### 2 4323-8, 90166-8 ####[facility] LABCLIA [id number] [place] [address] [place] Calcium [Mass/Vol] 9.3 mg/dL Normal 8.5-10.2 [facility] Comment on above: Order Comment: Speci men Type: BLOOD SPECIMENOrdering Facility: [facility] Address: [address] [place], [place] [address] Performed By: #### 2 4323-8, ####[facility] LABCLIA [id number] [place] [address] [place] Chloride [Moles/Vol] 99 mmol/L Normal 97-105 [facility] Comment on above: Order Comment: Speci men Type: BLOOD SPECIMENOrdering Facility: [facility] Address: [address] [place], [place] [address] Performed By: #### 2 4323-8, 08762-8 ####[facility] LABCLIA [id number] [place] [address] [place] CO2 [Moles/Vol] 30 mmol/L Normal 22-30 [facility] Comment on above: Order Comment: Speci men Type: BLOOD SPECIMENOrdering Facility: [facility] Address: [address] [place], [place] [address] Performed By: #### 2 4328, ####[facility] LABCLIA [id number] [place] [id number] [place] Creatinine [Mass/Vol] 1.03 mg/dL Normal 0.73-1.22 [facility] Comment on above: Order Comment: Speci men Type: BLOOD SPECIMENOrdering Facility: [facility] Address: [address] [place], [place] [address] Performed By: #### 2 4328, ####[facility] [id number] [place] [address] [place] ESTIMATED GLOMERULAR FILTRATION RATE 85 mL/min/1.73m??? Normal >=60 [facility] Comment on above: Order Comment: Speci men Type: BLOOD SPECIMENOrdering Facility: [facility] Address: [address] [place], [place] [address] Result Comment: Laurita mated Glomerular Filtration Rate [...] actual GFR. Performed By: #### 2 4323-8, ####[facility]IA [id number] [place] [id number] [place] Glucose [Mass/Vol] 192 mg/dL High 74-99 [facility] Comment on above: Order Comment: Speci men Type: BLOOD SPECIMENOrdering Facility: [facility] Address: [address] [place], [place] [address] Result Comment: The [place] Diabetes Association (ADA) provides guidance for cutoff [...] Standards of Medical Care in Diabetes 2016, [place] [employer]. Diabetes Care. 2016.39(Suppl 1). Performed By: #### 2 4323-8, ####[facility] [id number] [place] [address] [place] Potassium [Moles/Vol] 3.2 mmol/L Low 3.7-5.1 [facility] Comment on above: Order Comment: Speci men Type: BLOOD SPECIMENOrdering Facility: [facility] Address: [address] [place], [place] [address] Performed By: #### 2 4323-8, ####[facility] [id number] [place] [address] [place] Protein [Mass/Vol] 6.6 g/dL Normal 6.3-8.0 [facility] Comment on above: Order Comment: Speci men Type: BLOOD SPECIMENOrdering Facility: [facility] Address: [address] [place], [place] [address] Performed By: #### 2 4323-8, ####[facility]IA [id number] [place] [address] [place] Sodium [Moles/Vol] 139 mmol/L Normal 136-144 [facility] Comment on above: Order Comment: Speci men Type: BLOOD SPECIMENOrdering Facility: [facility] Address: [address] Performed By: #### 2 4323-8, 58937-4 ####[facility] LABCLIA [id number] [place] [address] [place] Urea nitrogen [Mass/Vol] 15 mg/dL Normal 9-24 [facility] Comment on above: Order Comment: Speci men Type: BLOOD SPECIMENOrdering Facility: [facility] Address: [address] [place] [address] Performed By: #### 2 4323-8, ####[facility] LABCLIA [id number] [place] [address] [place] Magnesium SerPl-mCncon 09-04 Magnesium [Mass/Vol] 2.2 mg/dL Normal 1.7-2.3 [facility] Comment on above: Order Comment: Speci men Type: BLOOD SPECIMENOrdering Facility: [facility] Address: [address] [place], [place] [address] Performed By: #### 2 4323-8, ####[facility] [id number] [place] [address] [place] PT EDon 09-04-2021 PT ED Normal [facility] CASE MANAGEMon 09-03-2021 CASE MANAGEM Normal [facility] CBC panel Auto (Bld)on 09-03 Erythrocyte distribution width (RBC) [Ratio] 15.4 % High 11.5-15.0 [facility] Comment on above: Order Comment: Speci men Type: BLOOD SPECIMENOrdering Facility: [facility] Address: [address] [place], [place] [address] Performed By: #### 5 8410-2 ####[facility]IA [id number] [place] [address] [place] Hematocrit (Bld) [Volume fraction] 43.8 % Normal 39.0-51.0 [facility] Comment on above: Order Comment: Speci men Type: BLOOD SPECIMENOrdering Facility: [facility] Address: [address] [place], [place] [address] Performed By: #### 5 8410-2 ####[facility] [id number] [address] [place] Hemoglobin (Bld) [Mass/Vol] 13.9 g/dL Normal 13.0-17.0 [facility] Comment on above: Order Comment: Speci men Type: BLOOD SPECIMENOrdering Facility: [facility] Address: [address] [place], [place] [address] Performed By: #### 5 8410-2 ####[facility] [id number] [address] [place] MCH (RBC) [Entitic mass] 29.6 pg Normal 26.0-34.0 [facility] Comment on above: Order Comment: Speci men Type: BLOOD SPECIMENOrdering Facility: [facility] Address: [address] [place], [place] [address] Performed By: #### 5 8410-2 ####[facility] [id number] [address] [place] MCHC (RBC) [Mass/Vol] 31.7 g/dL Normal 30.5-36.0 [facility] Comment on above: Order Comment: Speci men Type: BLOOD SPECIMENOrdering Facility: [facility] Address: [address] [place], [place] [address] Performed By: #### 5 8410-2 ####[facility] [id number] [place] [address] [place] MCV (RBC) [Entitic vol] 93.2 fL Normal 80.0-100.0 C [facility] Comment on above: Order Comment: Speci men Type: BLOOD SPECIMENOrdering Facility: [facility] Address: [address] [place], [place] [address] Performed By: #### 5 8410-2 ####[facility] LABCLIA [id number] [place] [address] [place] Nucleated RBC (Bld) [#/Vol] 10*3/uL Normal <0.01 [facility] Comment on above: Order Comment: Speci men Type: BLOOD SPECIMENOrdering Facility: [facility] Address: [address] [place], [place] [address] Performed By: #### 5 8410-2 ####[facility]IA [id number] [place] [address] [place] Platelet mean volume (Bld) [Entitic vol] 9.9 fL Normal 9.0-12.7 [facility] Comment on above: Order Comment: Speci men Type: BLOOD SPECIMENOrdering Facility: [facility] Address: [address] [place] [address] Performed By: #### 5 8410-2 ####[facility]IA [id number] [place] [address] [place] Platelets (Bld) [#/Vol] 212 10*3/uL Normal 150-400 [facility] Comment on above: Order Comment: Speci men Type: BLOOD SPECIMENOrdering Facility: [facility] Address: [address] [place], [place] [address] Performed By: #### 5 8410-2 ####[facility]IA [id number] [place] [address] [place] RBC (Bld) [#/Vol] 4.70 10*6/uL Normal 4.20-6.00 [facility] Comment on above: Order Comment: Speci men Type: BLOOD SPECIMENOrdering Facility: [facility] Address: [address] [place], [place] [address] Performed By: #### 5 8410-2 ####[facility] LABIA [id number] [address] [place] WBC (Bld) [#/Vol] 5.51 10*3/uL Normal 3.70-11.00 [facility] Comment on above: Order Comment: Speci men Type: BLOOD SPECIMENOrdering Facility: [facility] Address: [address] [place] [address] Performed By: #### 5 8410-2 ####[facility] LABCLIA [id number] [address] OF [facility] Comprehensive metabolic 2000 panelon 09-03-2021 Albumin [Mass/Vol] 3.7 g/dL Low 3.9-4.9 [facility] Comment on above: Order Comment: Speci men Type: BLOOD SPECIMENOrdering Facility: [facility] Address: [address] [place] [address] Performed By: #### 2 4323-8, 01486-8, 04374-7 ####[facility]IA [id number] [address] [place] ALP [Catalytic activity/Vol] 83 U/L Normal 38-113 [facility] Comment on above: Order Comment: Speci men Type: BLOOD SPECIMENOrdering Facility: [facility] Address: [address] [place], [place] [address] Performed By: #### 2 4323-8, 87115-9, 74819-6 ####[facility] LABCLIA [id number] [address] OF [facility] ALT [Catalytic activity/Vol] 65 U/L High 10-54 [facility] Comment on above: Order Comment: Speci men Type: BLOOD SPECIMENOrdering Facility: [facility] Address: [address] [place], [place] [address] Performed By: #### 2 4323-8, 89328-6, 95873-0 ####[facility] LABCLIA [id number] [place] [id number] [place] Anion gap [Moles/Vol] 9 mmol/L Normal 9-18 [facility] Comment on above: Order Comment: Speci men Type: BLOOD SPECIMENOrdering Facility: [facility] Address: [address] [place] [address] Performed By: #### 2 4323-8, 24716-3, 03457-6 ####[facility] LABCLIA [id number] [place] [address] [place] AST [Catalytic activity/Vol] 35 U/L Normal 14-40 [facility] Comment on above: Order Comment: Speci men Type: BLOOD SPECIMENOrdering Facility: [facility] Address: [address] [place], [place] [address] Performed By: #### 2 4323-8, 70843-8, ####[facility] LABCLIA [id number] [place] [address] [place] Bilirubin [Mass/Vol] 0.6 mg/dL Normal 0.2-1.3 [facility] Comment on above: Order Comment: Speci men Type: BLOOD SPECIMENOrdering Facility: [facility] Address: [address] [place], [place] [address] Performed By: #### 2 4323-8, 25297-9, ####[facility] LABCLIA [id number] [place] [address] [place] Calcium [Mass/Vol] 9.3 mg/dL Normal 8.5-10.2 [facility] Comment on above: Order Comment: Speci men Type: BLOOD SPECIMENOrdering Facility: [facility] Address: [address] [place] [address] Performed By: #### 2 4323-8, 68569-6, 58968-0 ####[facility] LABCLIA [id number] [place] [address] [place] Chloride [Moles/Vol] 102 mmol/L Normal 97-105 [facility] Comment on above: Order Comment: Speci men Type: BLOOD SPECIMENOrdering Facility: [facility] Address: [address] [place], [place] [address] Performed By: #### 2 4323-8, 06198-4, ####[facility] LABCLIA [id number] [place] [address] [place] CO2 [Moles/Vol] 32 mmol/L High 22-30 [facility] Comment on above: Order Comment: Speci men Type: BLOOD SPECIMENOrdering Facility: [facility] Address: [address] [place] [address] Performed By: #### 2 4323-8, 13224-6, ####[facility] LABCLIA [id number] [place] [address] [place] Creatinine [Mass/Vol] 1.08 mg/dL Normal 0.73-1.22 [facility] Comment on above: Order Comment: Speci men Type: BLOOD SPECIMENOrdering Facility: [facility] Address: [address] [place] [address] Performed By: #### 2 4323-8, 08891-6, ####[facility] LABCLIA [id number] [place] [address] [place] ESTIMATED GLOMERULAR FILTRATION RATE 80 mL/min/1.73m??? Normal >=60 [facility] Comment on above: Order Comment: Speci men Type: BLOOD SPECIMENOrdering Facility: [facility] Address: [address] [place], [place] [address] Result Comment: Laurita mated Glomerular Filtration Rate [...] actual GFR. Performed By: #### 2 4323-8, 34332-0, ####[facility] LABCLIA [id number] [address] [address] [place] Glucose [Mass/Vol] 98 mg/dL Normal 74-99 [facility] Comment on above: Order Comment: Speci men Type: BLOOD SPECIMENOrdering Facility: [facility] Address: [address] [place] [address] Result Comment: The [place] Diabetes Association (ADA) provides guidance for cutoff [...] Standards of Medical Care in Diabetes 2016, [place] [employer]. Diabetes Care. 2016.39(Suppl 1). Performed By: #### 2 4323-8, 48047-9, ####[facility] LABCLIA [id number] [address] [address] [place] Potassium [Moles/Vol] 3.8 mmol/L Normal 3.7-5.1 [facility] Comment on above: Order Comment: Speci men Type: BLOOD SPECIMENOrdering Facility: [facility] Address: [address] [place] [address] Performed By: #### 2 4323-8, 04010-5, ####[facility] LABCLIA [id number] [address] [address] [place] Protein [Mass/Vol] 6.9 g/dL Normal 6.3-8.0 [facility] Comment on above: Order Comment: Speci men Type: BLOOD SPECIMENOrdering Facility: [facility] Address: [address] [place], [place] [address] Performed By: #### 2 4323-8, 11816-0, ####[facility] LABCLIA [id number] [place] [address] [place] Sodium [Moles/Vol] 143 mmol/L Normal 136-144 [facility] Comment on above: Order Comment: Speci men Type: BLOOD SPECIMENOrdering Facility: [facility] Address: [address] [place] [address] Performed By: #### 2 4323-8, 30461-2, ####[facility] LABCLIA [id number] [place] [address] [place] Urea nitrogen [Mass/Vol] 16 mg/dL Normal 9-24 [facility] Comment on above: Order Comment: Speci men Type: BLOOD SPECIMENOrdering Facility: [facility] Address: [address] [place] [address] Performed By: #### 2 4323-8, 40947-0, ####[facility] LABCLIA [id number] [address] [place] ED NOTEon 09-03-2021 ED NOTE HNO ID: [id number] Author: Cinthya Gimenez RN Service: Emergency Medicine Author Type: Registered Nurse Type: ED Notes Filed: 09/02/2021 10:46 PM Note Text: Report given to [place] LOPEZ Normal [facility] Iron and Iron binding capaci ty panelon 09-03-2021 Iron [Mass/Vol] 42 ug/dL Normal 41-186 [facility] Comment on above: Order Comment: Speci men Type: BLOOD SPECIMENOrdering Facility: [facility] Address: [address] [place], [place] [address] Performed By: #### 2 4323-8, 77788-3, ####[facility] LABIA [id number] [place] [address] [place] Iron binding capacity [Mass/Vol] 261 ug/dL Normal 232-386 [facility] Comment on above: Order Comment: Speci men Type: BLOOD SPECIMENOrdering Facility: [facility] Address: [address] [place] [address] Performed By: #### 2 4323-8, 48491-5, 83836-6 ####[facility] [id number] [place] [address] [place] Iron/TIBC [Molar ratio] 16.1 % Normal 15.0-57.0 C [facility] Comment on above: Order Comment: Speci men Type: BLOOD SPECIMENOrdering Facility: [facility] Address: [address] [place] [address] Performed By: #### 2 4323-8, 28528-3, ####[facility] [id number] [place] [address] [place] Magnesium SerPl-mCncon 09-03 Magnesium [Mass/Vol] 2.4 mg/dL High 1.7-2.3 [facility] Comment on above: Order Comment: Speci men Type: BLOOD SPECIMENOrdering Facility: [facility] Address: [address] [place], [place] [address] Performed By: #### 2 4323-8, 68193-7, 93486-8 ####[facility] [id number] [place] [id number] [place] THERAPY NTon 09-03-2021 THERAPY NT Normal [facility] THERAPY NT Normal [facility] CBC W Auto Differential pane l (Bld)on 09-02-2021 Basophils (Bld) [#/Vol] 0.03 10*3/uL Normal <0.11 [facility] Comment on above: Order Comment: Speci men Type: BLOOD SPECIMENOrdering Facility: [facility] Address: [address] [place], [place] [address] Performed By: #### 5 7021-8 ####[facility] [id number] [address] OF [facility] Basophils/100 WBC (Bld) 0.5 % Normal [facility] Comment on above: Order Comment: Speci men Type: BLOOD SPECIMENOrdering Facility: [facility] Address: [address] [place], [place] [address] Performed By: #### 5 7021-8 ####[facility] [place] [id number] [place] [address] [place] Differential cell count method Nom (Bld) Auto Normal [facility] Comment on above: Order Comment: Speci men Type: BLOOD SPECIMENOrdering Facility: [facility] Address: [address] [place], [place] [address] Performed By: #### 5 7021-8 ####[facility] [id number] [place] [address] [place] Eosinophils (Bld) [#/Vol] 10*3/uL Normal <0.46 [facility] Comment on above: Order Comment: Speci men Type: BLOOD SPECIMENOrdering Facility: [facility] Address: [address] [place], [place] [address] Performed By: #### 5 7021-8 ####[facility] [place] [id number] [address] OF [place] Eosinophils/100 WBC (Bld) 0.3 % Normal [facility] Comment on above: Order Comment: Speci men Type: BLOOD SPECIMENOrdering Facility: [facility] Address: [address] [place], [place] [id number] Performed By: #### 5 7021-8 ####[facility] [id number] [address] STATES OF [facility] Erythrocyte distribution width (RBC) [Ratio] 15.2 % High 11.5-15.0 [facility] Comment on above: Order Comment: Speci men Type: BLOOD SPECIMENOrdering Facility: [facility] Address: [address] [place] [address] Performed By: #### 5 7021-8 ####[facility] [id number] [place] [address] OF [facility] Hematocrit (Bld) [Volume fraction] 40.8 % Normal 39.0-51.0 [facility] Comment on above: Order Comment: Speci men Type: BLOOD SPECIMENOrdering Facility: [facility] Address: [address] [place] [address] Performed By: #### 5 7021-8 ####[facility] [id number] [place] [address] STATES OF [facility] Hemoglobin (Bld) [Mass/Vol] 13.5 g/dL Normal 13.0-17.0 [facility] Comment on above: Order Comment: Speci men Type: BLOOD SPECIMENOrdering Facility: [facility] Address: [address] [place] [address] Performed By: #### 5 7021-8 ####[facility] [id number] [place] [address] OF [facility] IMMATURE GRAN % 0.3 % Normal [facility] Comment on above: Order Comment: Speci men Type: BLOOD SPECIMENOrdering Facility: [facility] Address: [address] [place] [address] Performed By: #### 5 7021-8 ####[facility] [id number] [place] [address] [place] IMMATURE GRAN ABS <0.03 Normal <0.10 [facility] Comment on above: Order Comment: Speci men Type: BLOOD SPECIMENOrdering Facility: [facility] Address: [address] [place], [place] [address] Performed By: #### 5 7021-8 ####[facility] [id number] [place] [address] Lymphocytes (Bld) [#/Vol] 1.42 10*3/uL Normal 1.00-4.00 [facility] Comment on above: Order Comment: Speci men Type: BLOOD SPECIMENOrdering Facility: [facility] Address: [address] [place], [place] [address] Performed By: #### 5 7021-8 ####[facility] [id number] [place] [address] OF [facility] Lymphocytes/100 WBC (Bld) 21.7 % Normal [facility] Comment on above: Order Comment: Speci men Type: BLOOD SPECIMENOrdering Facility: [facility] Address: [address] [place], [place] [address] Performed By: #### 5 7021-8 ####[facility] [id number] [place] [address] OF OPP MCH (RBC) [Entitic mass] 29.8 pg Normal 26.0-34.0 [facility] Comment on above: Order Comment: Speci men Type: BLOOD SPECIMENOrdering Facility: [facility] Address: [address] [place], [place] [address] Performed By: #### 5 7021-8 ####[facility] [id number] [address] STATES OF [place] MCHC (RBC) [Mass/Vol] 33.1 g/dL Normal 30.5-36.0 [facility] Comment on above: Order Comment: Speci men Type: BLOOD SPECIMENOrdering Facility: [facility] Address: [address] [place], [place] [address] Performed By: #### 5 7021-8 ####[facility] [id number] [place] [address] [place] MCV (RBC) [Entitic vol] 90.1 fL Normal 80.0-100.0 C [facility] Comment on above: Order Comment: Speci men Type: BLOOD SPECIMENOrdering Facility: [facility] Address: [address] [place] [address] Performed By: #### 5 7021-8 ####[facility] [id number] [place] [address] [place] Monocytes (Bld) [#/Vol] 0.42 10*3/uL Normal <0.87 [facility] Comment on above: Order Comment: Speci men Type: BLOOD SPECIMENOrdering Facility: [facility] Address: [address] [place] [address] Performed By: #### 5 7021-8 ####[facility] [id number] [place] [address] [place] Monocytes/100 WBC (Bld) 6.4 % Normal C [facility] Comment on above: Order Comment: Speci men Type: BLOOD SPECIMENOrdering Facility: [facility] Address: [address] [place] [address] Performed By: #### 5 7021-8 ####[facility] [id number] [place] [address] [place] Neutrophils (Bld) [#/Vol] 4.62 10*3/uL Normal 1.45-7.50 [facility] Comment on above: Order Comment: Speci men Type: BLOOD SPECIMENOrdering Facility: [facility] Address: [address] [place] [address] Performed By: #### 5 7021-8 ####[facility] [id number] [place] [address] [place] Neutrophils/100 WBC (Bld) 70.8 % Normal [facility] Comment on above: Order Comment: Speci men Type: BLOOD SPECIMENOrdering Facility: [facility] Address: [address] [place], [place] [address] Performed By: #### 5 7021-8 ####[facility] [id number] [place] [address] [place] Nucleated RBC (Bld) [#/Vol] 10*3/uL Normal <0.01 [facility] Comment on above: Order Comment: Speci men Type: BLOOD SPECIMENOrdering Facility: [facility] Address: [address] [place], [place] [address] Performed By: #### 5 7021-8 ####[facility] [id number] [place] [address] [place] OF [place] Nucleated RBC/100 WBC (Bld) [Ratio] 0.0 /100 WBC Normal [facility] Comment on above: Order Comment: Speci men Type: BLOOD SPECIMENOrdering Facility: [facility] Address: [address] [place], [place] [address] Performed By: #### 5 7021-8 ####[facility] [id number] [place] [address] [place] Platelet mean volume (Bld) [Entitic vol] 9.8 fL Normal 9.0-12.7 [facility] Comment on above: Order Comment: Speci men Type: BLOOD SPECIMENOrdering Facility: [facility] Address: [address] [place] [address] Performed By: #### 5 7021-8 ####[facility] [id number] [place] [address] [place] Platelets (Bld) [#/Vol] 206 10*3/uL Normal 150-400 [facility] Comment on above: Order Comment: Speci men Type: BLOOD SPECIMENOrdering Facility: [facility] Address: [address] [place] [address] Performed By: #### 5 7021-8 ####[facility] [id number] [place] [address] [place] RBC (Bld) [#/Vol] 4.53 10*6/uL Normal 4.20-6.00 [facility] Comment on above: Order Comment: Speci men Type: BLOOD SPECIMENOrdering Facility: [facility] Address: [address] [place] [address] Performed By: #### 5 7021-8 ####[facility] [id number] [place] [address] WBC (Bld) [#/Vol] 6.53 10*3/uL Normal 3.70-11.00 [facility] Comment on above: Order Comment: Speci men Type: BLOOD SPECIMENOrdering Facility: [facility] Address: [address] [place] [address] Performed By: #### 5 7021-8 ####[facility] [id number] [place] [address] [place] CNNURSEon 09-02-2021 CNNURSE Normal [facility] CNOVSPon 09-02-2021 CNOVSP Normal [facility] CT CHEST W IVCON PEon 2021 CT CHEST W IVCON PE Normal [facility] Comprehensive metabolic 2000 panelon 09-02-2021 Albumin [Mass/Vol] 4.1 g/dL Normal 3.9-4.9 [facility] Comment on above: Order Comment: Speci men Type: BLOOD SPECIMENOrdering Facility: [facility] Address: [address] [place] [address] Performed By: #### 2 4323-8 ####[facility] [id number] [place] [address] [place] ALP [Catalytic activity/Vol] 82 U/L Normal 38-113 [facility] Comment on above: Order Comment: Speci men Type: BLOOD SPECIMENOrdering Facility: [facility] Address: [address] [place], [place] [address] Performed By: #### 2 4323-8 ####[facility] [id number] [address] [place] OF [place] ALT [Catalytic activity/Vol] 79 U/L High 10-54 [facility] Comment on above: Order Comment: Speci men Type: BLOOD SPECIMENOrdering Facility: [facility] Address: [address] [place], [place] [address] Performed By: #### 2 4323-8 ####[facility] [id number] [place] [address] [place] Anion gap [Moles/Vol] 10 mmol/L Normal 9-18 [facility] Comment on above: Order Comment: Speci men Type: BLOOD SPECIMENOrdering Facility: [facility] Address: [address] [place] [address] Performed By: #### 2 4323-8 ####[facility] [id number] [place] [address] [place] AST [Catalytic activity/Vol] 50 U/L High 14-40 [facility] Comment on above: Order Comment: Speci men Type: BLOOD SPECIMENOrdering Facility: [facility] Address: [address] [place], [place] [address] Performed By: #### 2 4323-8 ####[facility] [id number] [place] [address] [place] Bilirubin [Mass/Vol] 1.0 mg/dL Normal 0.2-1.3 [facility] Comment on above: Order Comment: Speci men Type: BLOOD SPECIMENOrdering Facility: [facility] Address: [address] [place], [place] [address] Performed By: #### 2 4323-8 ####[facility] [id number] [place] [address] [place] Calcium [Mass/Vol] 9.1 mg/dL Normal 8.5-10.2 [facility] Comment on above: Order Comment: Speci men Type: BLOOD SPECIMENOrdering Facility: [facility] Address: [address] [place] [address] Performed By: #### 2 4323-8 ####[facility] [id number] [place] [address] [place] Chloride [Moles/Vol] 107 mmol/L High 97-105 [facility] Comment on above: Order Comment: Speci men Type: BLOOD SPECIMENOrdering Facility: [facility] Address: [address] [place] [address] Performed By: #### 2 4323-8 ####[facility] [id number] [place] [address] [place] CO2 [Moles/Vol] 25 mmol/L Normal 22-30 [facility] Comment on above: Order Comment: Speci men Type: BLOOD SPECIMENOrdering Facility: [facility] Address: [address] [place] [address] Performed By: #### 2 4323-8 ####[facility] [id number] [place] [address] [place] Creatinine [Mass/Vol] 1.07 mg/dL Normal 0.73-1.22 [facility] Comment on above: Order Comment: Speci men Type: BLOOD SPECIMENOrdering Facility: [facility] Address: [address] [place] [address] Performed By: #### 2 4323-8 ####[facility] [id number] [place] [address] [place] ESTIMATED GLOMERULAR FILTRATION RATE 81 mL/min/1.73m??? Normal >=60 [facility] Comment on above: Order Comment: Aaliyah gibson Type: BLOOD SPECIMENOrdering Facility: [facility] Address: [address] [place] [address] Result Comment: Laurita mated Glomerular Filtration Rate [...] actual GFR. Performed By: #### 2 4323-8 ####[facility] [id number] [place] [address] [place] Glucose [Mass/Vol] 127 mg/dL High 74-99 [facility] Comment on above: Order Comment: Aaliyah gibson Type: BLOOD SPECIMENOrdering Facility: [facility] Address: [address] [place] [address] Result Comment: The [place] Diabetes Association (ADA) provides guidance for cutoff [...] Standards of Medical Care in Diabetes 2016, [place] [employer] Association. Diabetes Care. 2016.39(Suppl 1). Performed By: #### 2 4323-8 ####[facility] [id number] [place] [address] [place] Potassium [Moles/Vol] 3.6 mmol/L Low 3.7-5.1 [facility] Comment on above: Order Comment: Aaliyah gibson Type: BLOOD SPECIMENOrdering Facility: [facility] Address: [address] [place], [place] [address] Performed By: #### 2 4323-8 ####[facility] [id number] [place] [address] [place] Protein [Mass/Vol] 6.8 g/dL Normal 6.3-8.0 [facility] Comment on above: Order Comment: Speci men Type: BLOOD SPECIMENOrdering Facility: [facility] Address: [address] [place], [place] [address] Performed By: #### 2 4323-8 ####[facility] [id number] [place] [address] [place] Sodium [Moles/Vol] 142 mmol/L Normal 136-144 [facility] Comment on above: Order Comment: Speci men Type: BLOOD SPECIMENOrdering Facility: [facility] Address: [address] [place] [address] Performed By: #### 2 4323-8 ####[facility] [id number] [place] [address] [place] Urea nitrogen [Mass/Vol] 14 mg/dL Normal 9-24 [facility] Comment on above: Order Comment: Speci men Type: BLOOD SPECIMENOrdering Facility: [facility] Address: [address] [place], [place] [address] Performed By: #### 2 4323-8 ####[facility] [id number] [place] [address] [place] D dimer FEU PPP-mCncon 09-02 Fibrin D-dimer FEU (PPP) [Mass/Vol] 1920 ng/mL FEU High <500 [facility] Comment on above: Order Comment: Speci men Type: BLOOD SPECIMENOrdering Facility: [facility] Address: [address] [place], [place] [address] Performed By: #### 4 8065-7 ####[facility] LABCLIA [id number] [place] [id number] [place] ED NOTEon 09-02-2021 ED NOTE HNO ID: [id number] Author: Lisa Bright RN Service: ? 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 Normal [facility] ED PROV NOTEon 09-02-2021 ED PROV NOTE Normal [facility] Ferritin SerPl-mCncon 2021 Ferritin [Mass/Vol] 332.0 ng/mL Normal 30.3-565.7 [facility] Comment on above: Order Comment: Speci men Type: BLOOD SPECIMENOrdering Facility: [facility] Address: [address] [place] [address] Performed By: #### 3 034-6, 2276-4 ####[facility] LABIA [id number] [place] [address] [place] Fibrin D-dimer FEU (PPP) [Ma ss/Vol]on 09-02-2021 D DIMER AGE-RELATED CUTOFF 570 ng/mL FEU Normal [facility] Comment on above: Order Comment: Speci men Type: BLOOD SPECIMENOrdering Facility: [facility] Address: [address] [place] [address] Performed By: #### 4 8065-7 ####[facility]CL[facility] [id number] [place] [address] [place] HIGH SENSITIVITY TROPONIN To n 09-02-2021 HIGH SENSITIVITY BEAU 33 ng/L High <12 [facility] Comment on above: Order Comment: Aaliyah gibson Type: BLOOD SPECIMENOrdering Facility: [facility] Address: [address] [place] [address] Result Comment: When assessing risk for acute [...] MACE. Performed By: #### 5 5454-3, HSTNT ####[facility] LABCL[facility] [id number] [address] STATES OF [place] HIGH SENSITIVITY BEAU 33 ng/L High <12 [facility] Comment on above: Order Comment: Aaliyah gibson Type: BLOOD SPECIMENOrdering Facility: [facility] Address: [address] [place] [address] Result Comment: When assessing risk for acute [...] day MACE. Performed By: #### H STNT ####[facility]CL[facility] [id number] [place] [address] [place] HISTORY PHYSICALon HISTORY PHYSICAL Normal [facility] HbA1c (Bld)on 09-02-2021 Average glucose Estimated from glycated hemoglobin (Bld) [Mass/Vol] 137 mg/dL Normal [facility] Comment on above: Order Comment: Aaliyah gibson Type: BLOOD SPECIMENOrdering Facility: [facility] Address: [address] [place] [address] Result Comment: eAG: (Estimated average glucose) is a calculated value from HgbA1c and is leasing representative of the average blood glucose level in the last 2-3 month period. Performed By: #### 5 5454-3, HSTNT ####[facility] [id number] [place] [address] [place] HbA1c (Bld) [Mass fraction] 6.4 % High 4.3-5.6 [facility] Comment on above: Order Comment: Speci men Type: BLOOD SPECIMENOrdering Facility: [facility] Address: [address] [place] [address] Result Comment: [place] Diabetes Association guidelines indicate that patients with HgbA1c in the range 5.7-6.4% are at increased risk for development of diabetes, and intervention by lifestyle modification may be beneficial. HgbA1c greater or equal to 6.5% is considered diagnostic of diabetes. Performed By: #### 5 5454-3, HSTNT ####[facility] [id number] [place] [address] [place] LDH SerPl-cCncon 09-02-2021 LDH [Catalytic activity/Vol] 336 U/L High 135-225 [facility] Comment on above: Order Comment: Speci men Type: BLOOD SPECIMENOrdering Facility: [facility] Address: [address] [place] [address] Performed By: #### 2 532-0 ####[facility] [id number] [place] [address] [place] Magnesium SerPl-mCncon 09-02 Magnesium [Mass/Vol] 2.2 mg/dL Normal 1.7-2.3 [facility] Comment on above: Order Comment: Speci men Type: BLOOD SPECIMENOrdering Facility: [facility] Address: [address] [place] [address] Performed By: #### 3 3762-6, 3016-3, 53350-7 ####[facility] [id number] [place] [address] [place] NT-proBNP SerPl-mCncon 09-02 Natriuretic peptide.B prohormone N-Terminal [Mass/Vol] 3442 pg/mL High <125 [facility] Comment on above: Order Comment: Aaliyah gibson Type: BLOOD SPECIMENOrdering Facility: [facility] Address: [address] [place], [place] [address] Performed By: #### 3 3762-6, 3016-3, 77858-0 ####[facility] LABCLIA [id number] [address] OF [facility] No Panel Informationon 09-02 [facility] PT panel Coag (PPP)on 2021 INR Coag (PPP) [Relative time] 1.1 {INR} Normal 0.9-1.3 [facility] Comment on above: Order Comment: Aaliyah gibson Type: BLOOD SPECIMENOrdering Facility: [facility] Address: [address] [place] [address] Result Comment: Constanza min K Antagonist (VKA) Therapeutic Range: INR 2 to 3 (Target INR of 2.5)Note: For patients treated with VKA drugs, such as warfarin, the [place] [employer] 2012 Guideline recommends [...] 70: 252-289 Performed By: #### 3 4528-0, 32834-3 ####[facility] LABCLIA [id number] [address] [place] PT Coag (PPP) [Time] 12.0 s Normal 9.7-13.0 [facility] Comment on above: Order Comment: Speci men Type: BLOOD SPECIMENOrdering Facility: [facility] Address: [address] [place] [address] Performed By: #### 3 4528-0, 60709-8 ####[facility] LABIA [id number] [place] [address] [place] SARS-CoV-2 RNA Resp Ql SANDVOAL+p robeon 09-02-2021 SARS-CoV-2 (COVID-19) RNA SANDOVAL+probe Ql (Resp) COVID 19 RESULT: SARS-CoV-2 (Agent of COVID-19) Not Detected by RT-PCR or equivalent method. This test has been authorized by FDA under an Emergency Use Authorization (EUA). Normal [facility] Comment on above: Performed By: #### 9 4500-6 ####[facility] LABIA [id number] [place] [address] [place] TSH SerPl-aCncon 09-02-2021 TSH Qn 1.460 m[IU]/L Normal 0.270-4.20 0 [facility] Comment on above: Order Comment: Speci men Type: BLOOD SPECIMENOrdering Facility: [facility] Address: [address] [place] [address] Performed By: #### 3 3762-6, 3016-3, 36225-2 ####[facility] LABIA [id number] [place] [address] [place] Transferrin SerPl-mCncon Transferrin [Mass/Vol] 234 mg/dL Normal 200-360 [facility] Comment on above: Order Comment: Speci men Type: BLOOD SPECIMENOrdering Facility: [facility] Address: [address] [place] [address] Performed By: #### 3 034-6, 2276-4 ####[facility] LABCLIA [id number] [place] [address] [place] XR CHEST 2V FRONTAL/LATon XR CHEST 2V FRONTAL/LAT Normal C [facility] aPTT PPPon 09-02-2021 aPTT Coag (PPP) [Time] 28.7 s Normal 23.0-32.4 Cl [facility] Comment on above: Order Comment: Speci men Type: BLOOD SPECIMENOrdering Facility: [facility] Address: [address] [place] [address] Performed By: #### 3 4528-0, 04769-8 ####[facility] [id number] [place] [address] [place] CNPNon 09-01-2021 CNPN Normal [facility] CNNURSEon 08-27-2021 CNNURSE Normal [facility] CBC W Auto Differential pane l (Bld)on 08-19-2021 Basophils (Bld) [#/Vol] 0.04 10*3/uL Normal <0.11 [facility] Comment on above: Order Comment: Speci men Type: BLOOD SPECIMENOrdering Facility: [facility] Address: [address] [place] [address] Performed By: #### 5 7021-8 ####[facility] [id number] [address] [place] Basophils/100 WBC (Bld) 0.7 % Normal C [facility] Comment on above: Order Comment: Speci men Type: BLOOD SPECIMENOrdering Facility: [facility] Address: [address] [place] [address] Performed By: #### 5 7021-8 ####[facility] [id number] [place] [address] [place] Differential cell count method Nom (Bld) Auto Normal [facility] Comment on above: Order Comment: Speci men Type: BLOOD SPECIMENOrdering Facility: [facility] Address: [address] [place] [address] Performed By: #### 5 7021-8 ####[facility] [id number] [place] [address] [place] Eosinophils (Bld) [#/Vol] 0.15 10*3/uL Normal <0.46 [facility] Comment on above: Order Comment: Speci men Type: BLOOD SPECIMENOrdering Facility: [facility] Address: [address] [place] [address] Performed By: #### 5 7021-8 ####[facility] [id number] [place] [address] [place] Eosinophils/100 WBC (Bld) 2.5 % Normal [facility] Comment on above: Order Comment: Speci men Type: BLOOD SPECIMENOrdering Facility: [facility] Address: [address] [place] [address] Performed By: #### 5 7021-8 ####[facility] [id number] [place] [address] [place] Erythrocyte distribution width (RBC) [Ratio] 15.0 % Normal 11.5-15.0 [facility] Comment on above: Order Comment: Speci men Type: BLOOD SPECIMENOrdering Facility: [facility] Address: [address] [place], [place] [address] Performed By: #### 5 7021-8 ####[facility] [id number] [place] [address] [place] Hematocrit (Bld) [Volume fraction] 49.1 % Normal 39.0-51.0 [facility] Comment on above: Order Comment: Speci men Type: BLOOD SPECIMENOrdering Facility: [facility] Address: [address] [place] [address] Performed By: #### 5 7021-8 ####[facility] [id number] [place] [address] [place] Hemoglobin (Bld) [Mass/Vol] 17.0 g/dL Normal 13.0-17.0 [facility] Comment on above: Order Comment: Speci men Type: BLOOD SPECIMENOrdering Facility: [facility] Address: [address] [place] [address] Performed By: #### 5 7021-8 ####[facility] [id number] [place] [address] [place] IMMATURE GRAN % 0.3 % Normal [facility] Comment on above: Order Comment: Speci men Type: BLOOD SPECIMENOrdering Facility: [facility] Address: [address] [place] [address] Performed By: #### 5 7021-8 ####[facility] [id number] [place] [address] [place] IMMATURE GRAN ABS <0.03 Normal <0.10 [facility] Comment on above: Order Comment: Speci men Type: BLOOD SPECIMENOrdering Facility: [facility] Address: [address] [place] [address] Performed By: #### 5 7021-8 ####[facility] [id number] [place] [address] [place] Lymphocytes (Bld) [#/Vol] 1.58 10*3/uL Normal 1.00-4.00 [facility] Comment on above: Order Comment: Speci men Type: BLOOD SPECIMENOrdering Facility: [facility] Address: [address] [place] [address] Performed By: #### 5 7021-8 ####[facility] [id number] [place] [address] [place] Lymphocytes/100 WBC (Bld) 26.2 % Normal [facility] Comment on above: Order Comment: Speci men Type: BLOOD SPECIMENOrdering Facility: [facility] Address: [address] [place], [place] [address] Performed By: #### 5 7021-8 ####[facility] [id number] [place] [address] MCH (RBC) [Entitic mass] 29.6 pg Normal 26.0-34.0 [facility] Comment on above: Order Comment: Speci men Type: BLOOD SPECIMENOrdering Facility: [facility] Address: [address] [place], [place] [address] Performed By: #### 5 7021-8 ####[facility] [id number] [place] [address] MCHC (RBC) [Mass/Vol] 34.6 g/dL Normal 30.5-36.0 [facility] Comment on above: Order Comment: Speci men Type: BLOOD SPECIMENOrdering Facility: [facility] Address: [address] [place], [place] [address] Performed By: #### 5 7021-8 ####[facility] [id number] [place] [address] MCV (RBC) [Entitic vol] 85.5 fL Normal 80.0-100.0 C [facility] Comment on above: Order Comment: Speci men Type: BLOOD SPECIMENOrdering Facility: [facility] Address: [address] [place], [place] [address] Performed By: #### 5 7021-8 ####[facility] [id number] [place] [address] Monocytes (Bld) [#/Vol] 0.49 10*3/uL Normal <0.87 [facility] Comment on above: Order Comment: Speci men Type: BLOOD SPECIMENOrdering Facility: [facility] Address: [address] [place], [place] [address] Performed By: #### 5 7021-8 ####[facility] [id number] [place] [address] [place] Monocytes/100 WBC (Bld) 8.1 % Normal [facility] Comment on above: Order Comment: Speci men Type: BLOOD SPECIMENOrdering Facility: [facility] Address: [address] [place] [address] Performed By: #### 5 7021-8 ####[facility] [id number] [place] [address] [place] Neutrophils (Bld) [#/Vol] 3.74 10*3/uL Normal 1.45-7.50 [facility] Comment on above: Order Comment: Speci men Type: BLOOD SPECIMENOrdering Facility: [facility] Address: [address] [place] [address] Performed By: #### 5 7021-8 ####[facility] [id number] [place] [address] [place] Neutrophils/100 WBC (Bld) 62.2 % Normal [facility] Comment on above: Order Comment: Speci men Type: BLOOD SPECIMENOrdering Facility: [facility] Address: [address] [place] [address] Performed By: #### 5 7021-8 ####[facility] [id number] [place] [address] [place] Nucleated RBC (Bld) [#/Vol] 10*3/uL Normal <0.01 [facility] Comment on above: Order Comment: Speci men Type: BLOOD SPECIMENOrdering Facility: [facility] Address: [address] [place], [place] [address] Performed By: #### 5 7021-8 ####[facility] [id number] [place] [address] [place] Nucleated RBC/100 WBC (Bld) [Ratio] 0.0 /100 WBC Normal [facility] Comment on above: Order Comment: Speci men Type: BLOOD SPECIMENOrdering Facility: [facility] Address: [address] [place], [place] [address] Performed By: #### 5 7021-8 ####[facility] [id number] [place] [address] [place] Platelet mean volume (Bld) [Entitic vol] 10.4 fL Normal 9.0-12.7 [facility] Comment on above: Order Comment: Speci men Type: BLOOD SPECIMENOrdering Facility: [facility] Address: [address] [place], [place] [address] Performed By: #### 5 7021-8 ####[facility] [id number] [place] [address] [place] Platelets (Bld) [#/Vol] 298 10*3/uL Normal 150-400 [facility] Comment on above: Order Comment: Speci men Type: BLOOD SPECIMENOrdering Facility: [facility] Address: [address] [place], [place] [address] Performed By: #### 5 7021-8 ####[facility] [id number] [place] [address] [place] RBC (Bld) [#/Vol] 5.74 10*6/uL Normal 4.20-6.00 [facility] Comment on above: Order Comment: Speci men Type: BLOOD SPECIMENOrdering Facility: [facility] Address: [address] [place], [place] [address] Performed By: #### 5 7021-8 ####[facility] [id number] [place] [address] [place] WBC (Bld) [#/Vol] 6.02 10*3/uL Normal 3.70-11.00 [facility] Comment on above: Order Comment: Speci men Type: BLOOD SPECIMENOrdering Facility: [facility] Address: [address] [place], [place] [address] Performed By: #### 5 7021-8 ####[facility] [id number] [place] [address] [place] CNNURSEon 08-19-2021 CNNURSE Normal [facility] CNOVon 08-19-2021 CNOV Normal [facility] CNOVSPon 08-19-2021 CNOVSP Normal [facility] Comprehensive metabolic 2000 panelon 08-19-2021 Albumin [Mass/Vol] 4.6 g/dL Normal 3.9-4.9 [facility] Comment on above: Order Comment: Speci men Type: BLOOD SPECIMENOrdering Facility: [facility] Address: [address] [place], [place] [address] Performed By: #### 2 4323-8, 3083-1, ####[facility] [id number] [place] [address] [place] ALP [Catalytic activity/Vol] 84 U/L Normal 38-113 [facility] Comment on above: Order Comment: Speci men Type: BLOOD SPECIMENOrdering Facility: [facility] Address: [address] [place], [place] [address] Performed By: #### 2 4323-8, 3083-1, ####[facility] [id number] [place] [address] [place] ALT [Catalytic activity/Vol] 59 U/L High 10-54 [facility] Comment on above: Order Comment: Speci men Type: BLOOD SPECIMENOrdering Facility: [facility] Address: [address] [place], [place] [address] Performed By: #### 2 4323-8, 308-1, ####[facility] [id number] [place] [address] [place] Anion gap [Moles/Vol] 12 mmol/L Normal 9-18 [facility] Comment on above: Order Comment: Speci men Type: BLOOD SPECIMENOrdering Facility: [facility] Address: [address] [place] [address] Performed By: #### 2 4323-8, 3084-1, ####[facility] [id number] [place] [address] [place] AST [Catalytic activity/Vol] 45 U/L High 14-40 [facility] Comment on above: Order Comment: Speci men Type: BLOOD SPECIMENOrdering Facility: [facility] Address: [address] [place], [place] [address] Performed By: #### 2 4323-8, 308-1, ####[facility] [id number] [place] [address] [place] Bilirubin [Mass/Vol] 0.3 mg/dL Normal 0.2-1.3 [facility] Comment on above: Order Comment: Speci men Type: BLOOD SPECIMENOrdering Facility: [facility] Address: [address] [place], [place] [address] Performed By: #### 2 4323-8, 3083-, ####[facility] [id number] [place] [address] [place] Calcium [Mass/Vol] 9.7 mg/dL Normal 8.5-10.2 [facility] Comment on above: Order Comment: Speci men Type: BLOOD SPECIMENOrdering Facility: [facility] Address: [address] [place] [address] Performed By: #### 2 4323-8, 3084-1, ####[facility] [id number] [place] [id number] [place] Chloride [Moles/Vol] 102 mmol/L Normal 97-105 [facility] Comment on above: Order Comment: Speci men Type: BLOOD SPECIMENOrdering Facility: [facility] Address: [address] [place], [place] [address] Performed By: #### 2 4323-8, 3084-1, ####[facility] [id number] [place] [address] [place] CO2 [Moles/Vol] 26 mmol/L Normal 22-30 [facility] Comment on above: Order Comment: Speci men Type: BLOOD SPECIMENOrdering Facility: [facility] Address: [address] [place] [address] Performed By: #### 2 4323-8, 3084-1, ####[facility] [id number] [place] [address] [place] Creatinine [Mass/Vol] 1.26 mg/dL High 0.73-1.22 [facility] Comment on above: Order Comment: Speci men Type: BLOOD SPECIMENOrdering Facility: [facility] Address: [address] [place], [place] [address] Performed By: #### 2 4323-8, 1, ####[facility] [id number] [place] [address] [place] ESTIMATED GLOMERULAR FILTRATION RATE 67 mL/min/1.73m??? Normal >=60 [facility] Comment on above: Order Comment: Speci men Type: BLOOD SPECIMENOrdering Facility: [facility] Address: [address] [place], [place] [address] Result Comment: Laurita mated Glomerular Filtration Rate [...] #### 2 4323-8, 3084-, ####[facility] [id number] [place] [address] [place] Glucose [Mass/Vol] 108 mg/dL High 74-99 [facility] Comment on above: Order Comment: Speci men Type: BLOOD SPECIMENOrdering Facility: [facility] Address: [address] [place] [phone] Result Comment: The [place] [employer] (ADA) provides guidance for cutoff [...] Standards of Medical Care in Diabetes 2016, [place] [employer]. Diabetes Care. 2016.39(Suppl 1). Performed By: #### 2 4323-8, 3083-03, ####[facility] [id number] [place] [address] [place] Potassium [Moles/Vol] 4.1 mmol/L Normal 3.7-5.1 [facility] Comment on above: Order Comment: Speci men Type: BLOOD SPECIMENOrdering Facility: [facility] Address: [address] [place] [address] Performed By: #### 2 4323-8, 30806-06, ####[facility] [id number] [place] [address] [place] Protein [Mass/Vol] 7.4 g/dL Normal 6.3-8.0 [facility] Comment on above: Order Comment: Speci men Type: BLOOD SPECIMENOrdering Facility: [facility] Address: [address] [place] [address] Performed By: #### 2 4323-8, 3084-1, ####[facility] [id number] [place] [address] [place] Sodium [Moles/Vol] 140 mmol/L Normal 136-144 [facility] Comment on above: Order Comment: Speci men Type: BLOOD SPECIMENOrdering Facility: [facility] Address: [address] [place] [address] Performed By: #### 2 4323-8, 3084-1, ####[facility] [id number] [place] [address] [place] Urea nitrogen [Mass/Vol] 17 mg/dL Normal 9-24 [facility] Comment on above: Order Comment: Speci men Type: BLOOD SPECIMENOrdering Facility: [facility] Address: [address] [place] [address] Performed By: #### 2 4323-8, 3084-1, ####[facility] [id number] [place] [address] [place] LDH SerPl-cCncon 08-19-2021 LDH [Catalytic activity/Vol] 334 U/L High 135-225 [facility] Comment on above: Order Comment: Speci men Type: BLOOD SPECIMENOrdering Facility: [facility] Address: [address] [place] [address] Performed By: #### 2 532-0 ####[facility] [id number] [place] [address] [place] Magnesium SerPl-mCncon 08-19 Magnesium [Mass/Vol] 2.3 mg/dL Normal 1.7-2.3 [facility] Comment on above: Order Comment: Speci men Type: BLOOD SPECIMENOrdering Facility: [facility] Address: [address] [place] [address] Performed By: #### 2 4323-8, 3084-1, 64232-8 ####[facility] [id number] [place] [address] [place] PT panel Coag (PPP)on 2021 INR Coag (PPP) [Relative time] 1.0 {INR} Normal 0.9-1.3 [facility] Comment on above: Order Comment: Aaliyah gibson Type: BLOOD SPECIMENOrdering Facility: [facility] Address: [address] [place], [place] [address] Result Comment: Constanza min K Antagonist (VKA) Therapeutic Range: INR 2 to 3 (Target INR of 2.5)Note: For patients treated with VKA drugs, such as warfarin, the [place] [employer] 2012 Guideline recommends [...] al. Chest 2012, 141:7S-47SNishimura RA, et al. [facility] 2017, 70: 252-289 Performed By: #### 3 4528-0, 18216-1 ####[facility] [id number] [place] [address] [place] PT Coag (PPP) [Time] 10.9 s Normal 9.7-13.0 [facility] Comment on above: Order Comment: Aaliyah gibson Type: BLOOD SPECIMENOrdering Facility: [facility] Address: [address] [place], [place] [address] Performed By: #### 3 4528-0, 79686-9 ####[facility] [id number] [place] [address] [place] Phosphate SerPl-mCncon 08-19 Phosphate [Mass/Vol] 4.2 mg/dL Normal 2.7-4.8 [facility] Comment on above: Order Comment: Speci men Type: BLOOD SPECIMENOrdering Facility: [facility] Address: [address] [place] [address] Performed By: #### 2 777-1 ####[facility] [id number] [place] [address] [place] Urate [facility] Urate [Mass/Vol] 7.4 mg/dL Normal 4.0-8.1 [facility] Comment on above: Order Comment: Speci men Type: BLOOD SPECIMENOrdering Facility: [facility] Address: [address] [place] [address] Performed By: #### 2 4323-8, 3084-1, 44450-5 ####[facility] [id number] [place] [address] [place] aPTT PPPon 08-19-2021 aPTT Coag (PPP) [Time] 28.3 s Normal 23.0-32.4 [facility] Comment on above: Order Comment: Speci men Type: BLOOD SPECIMENOrdering Facility: [facility] Address: [address] [place], [place] [address] Performed By: #### 3 4528-0, 82749-4 ####[facility] [id number] [place] [address] [place] CNPNon 08-18-2021 CNPN Normal [facility] CBC W Auto Differential pane l (Bld)on 08-17-2021 Basophils (Bld) [#/Vol] 0.04 10*3/uL Normal <0.11 [facility] Comment on above: Order Comment: Speci men Type: BLOOD SPECIMENOrdering Facility: [facility] Address: [address] [place], [place] [address] Performed By: #### 5 7021-8 ####[facility] [id number] [place] [address] [place] Basophils/100 WBC (Bld) 0.5 % Normal [facility] Comment on above: Order Comment: Speci men Type: BLOOD SPECIMENOrdering Facility: [facility] Address: [address] [place], [place] [address] Performed By: #### 5 7021-8 ####[facility] [id number] [place] [address] [place] Differential cell count method Nom (Bld) Auto Normal [facility] Comment on above: Order Comment: Speci men Type: BLOOD SPECIMENOrdering Facility: [facility] Address: [address] [place], [place] [address] Performed By: #### 5 7021-8 ####[facility] [id number] [place] [address] [place] Eosinophils (Bld) [#/Vol] 0.18 10*3/uL Normal <0.46 [facility] Comment on above: Order Comment: Speci men Type: BLOOD SPECIMENOrdering Facility: [facility] Address: [address] [place], [place] [address] Performed By: #### 5 7021-8 ####[facility] [id number] [address] [place] Eosinophils/100 WBC (Bld) 2.4 % Normal [facility] Comment on above: Order Comment: Speci men Type: BLOOD SPECIMENOrdering Facility: [facility] Address: [address] [place], [place] [address] Performed By: #### 5 7021-8 ####[facility] LABIA [id number] [place] [address] [place] Erythrocyte distribution width (RBC) [Ratio] 14.6 % Normal 11.5-15.0 [facility] Comment on above: Order Comment: Speci men Type: BLOOD SPECIMENOrdering Facility: [facility] Address: [address] [place], [place] [address] Performed By: #### 5 7021-8 ####[facility] [id number] [place] [address] [place] Hematocrit (Bld) [Volume fraction] 47.4 % Normal 39.0-51.0 [facility] Comment on above: Order Comment: Speci men Type: BLOOD SPECIMENOrdering Facility: [facility] Address: [address] [place] [address] Performed By: #### 5 7021-8 ####[facility] [id number] [place] [address] [place] Hemoglobin (Bld) [Mass/Vol] 16.4 g/dL Normal 13.0-17.0 [facility] Comment on above: Order Comment: Speci men Type: BLOOD SPECIMENOrdering Facility: [facility] Address: [address] [place] [address] Performed By: #### 5 7021-8 ####[facility] [id number] [address] [place] IMMATURE GRAN % 0.3 % Normal [facility] Comment on above: Order Comment: Speci men Type: BLOOD SPECIMENOrdering Facility: [facility] Address: [address] [place] [address] Performed By: #### 5 7021-8 ####[facility] [id number] [address] [place] IMMATURE GRAN ABS <0.03 Normal <0.10 [facility] Comment on above: Order Comment: Speci men Type: BLOOD SPECIMENOrdering Facility: [facility] Address: [address] [place] [address] Performed By: #### 5 7021-8 ####[facility]CL[facility] [id number] [place] [address] [place] Lymphocytes (Bld) [#/Vol] 1.36 10*3/uL Normal 1.00-4.00 [facility] Comment on above: Order Comment: Speci men Type: BLOOD SPECIMENOrdering Facility: [facility] Address: [address] [place] [address] Performed By: #### 5 7021-8 ####[facility] LABIA [id number] [address] [place] Lymphocytes/100 WBC (Bld) 18.4 % Normal [facility] Comment on above: Order Comment: Speci men Type: BLOOD SPECIMENOrdering Facility: [facility] Address: [address] [place] [address] Performed By: #### 5 7021-8 ####[facility] LABIA [id number] [place] [address] [place] MCH (RBC) [Entitic mass] 29.8 pg Normal 26.0-34.0 [facility] Comment on above: Order Comment: Speci men Type: BLOOD SPECIMENOrdering Facility: [facility] Address: [address] [place], [place] [address] Performed By: #### 5 7021-8 ####[facility] [id number] [place] [address] [place] MCHC (RBC) [Mass/Vol] 34.6 g/dL Normal 30.5-36.0 [facility] Comment on above: Order Comment: Speci men Type: BLOOD SPECIMENOrdering Facility: [facility] Address: [address] [place], [place] [address] Performed By: #### 5 7021-8 ####[facility]CL[facility] [id number] [address] [place] MCV (RBC) [Entitic vol] 86.0 fL Normal 80.0-100.0 C [facility] Comment on above: Order Comment: Speci men Type: BLOOD SPECIMENOrdering Facility: [facility] Address: [address] [place], [place] [address] Performed By: #### 5 7021-8 ####[facility] LABIA [id number] [place] [address] [place] Monocytes (Bld) [#/Vol] 0.42 10*3/uL Normal <0.87 [facility] Comment on above: Order Comment: Speci men Type: BLOOD SPECIMENOrdering Facility: [facility] Address: [address] [place] [address] Performed By: #### 5 7021-8 ####[facility] [id number] [address] [place] Monocytes/100 WBC (Bld) 5.7 % Normal C [facility] Comment on above: Order Comment: Speci men Type: BLOOD SPECIMENOrdering Facility: [facility] Address: [address] [place], [place] [address] Performed By: #### 5 7021-8 ####[facility]CL[facility] [id number] [place] [address] [place] Neutrophils (Bld) [#/Vol] 5.37 10*3/uL Normal 1.45-7.50 [facility] Comment on above: Order Comment: Speci men Type: BLOOD SPECIMENOrdering Facility: [facility] Address: [address] [place], [place] [address] Performed By: #### 5 7021-8 ####[facility]CLIA [id number] [place] [address] [place] Neutrophils/100 WBC (Bld) 72.7 % Normal [facility] Comment on above: Order Comment: Speci men Type: BLOOD SPECIMENOrdering Facility: [facility] Address: [address] [place] [address] Performed By: #### 5 7021-8 ####[facility]IA [id number] [place] [address] [place] Nucleated RBC (Bld) [#/Vol] 10*3/uL Normal <0.01 [facility] Comment on above: Order Comment: Speci men Type: BLOOD SPECIMENOrdering Facility: [facility] Address: [address] [place] [address] Performed By: #### 5 7021-8 ####[facility]IA [id number] [place] [address] [place] Nucleated RBC/100 WBC (Bld) [Ratio] 0.0 /100 WBC Normal [facility] Comment on above: Order Comment: Speci men Type: BLOOD SPECIMENOrdering Facility: [facility] Address: [address] [place], [place] [address] Performed By: #### 5 7021-8 ####[facility]IA [id number] [place] [address] [place] Platelet mean volume (Bld) [Entitic vol] 10.0 fL Normal 9.0-12.7 [facility] Comment on above: Order Comment: Speci men Type: BLOOD SPECIMENOrdering Facility: [facility] Address: [address] [place], [place] [address] Performed By: #### 5 7021-8 ####[facility] [id number] [place] [address] [place] Platelets (Bld) [#/Vol] 288 10*3/uL Normal 150-400 [facility] Comment on above: Order Comment: Speci men Type: BLOOD SPECIMENOrdering Facility: [facility] Address: [address] [place], [place] [address] Performed By: #### 5 7021-8 ####[facility] LABCLIA [id number] [place] [address] [place] RBC (Bld) [#/Vol] 5.51 10*6/uL Normal 4.20-6.00 [facility] Comment on above: Order Comment: Speci men Type: BLOOD SPECIMENOrdering Facility: [facility] Address: [address] [place], [place] [address] Performed By: #### 5 7021-8 ####[facility] LABCLIA [id number] [place] [address] [place] WBC (Bld) [#/Vol] 7.39 10*3/uL Normal 3.70-11.00 [facility] Comment on above: Order Comment: Speci men Type: BLOOD SPECIMENOrdering Facility: [facility] Address: [address] [place], [place] [address] Performed By: #### 5 7021-8 ####[facility] LABCLIA [id number] [place] [address] [place] [address] ABD/PEL WO IVCONon 2021 CT ABD/PEL WO IVCON Normal [facility] CT CHEST W IVCON PEon 2021 CT CHEST W IVCON PE Normal [facility] Comprehensive metabolic 2000 panelon 08-17-2021 Albumin [Mass/Vol] 4.4 g/dL Normal 3.9-4.9 [facility] Comment on above: Order Comment: Speci men Type: BLOOD SPECIMENOrdering Facility: [facility] Address: [address] [place], [place] [address] Performed By: #### 3 040-3, 39474-4, 03544-6, 35735-1, BEAU ####[facility] LABCLIA [id number] [place] [address] [place] ALP [Catalytic activity/Vol] 74 U/L Normal 38-113 [facility] Comment on above: Order Comment: Speci men Type: BLOOD SPECIMENOrdering Facility: [facility] Address: [address] [place] [address] Performed By: #### 3 040-3, 37784-3, 68459-5, 26457-5, BEAU ####[facility] LABCLIA [id number] [place] [address] [place] ALT [Catalytic activity/Vol] 44 U/L Normal 10-54 [facility] Comment on above: Order Comment: Speci men Type: BLOOD SPECIMENOrdering Facility: [facility] Address: [address] [place] [address] Performed By: #### 3 040-3, 16431-8, 25538-3, 09073-8, BEAU ####[facility] LABCLIA [id number] [place] [address] [place] Anion gap [Moles/Vol] 12 mmol/L Normal 9-18 [facility] Comment on above: Order Comment: Speci men Type: BLOOD SPECIMENOrdering Facility: [facility] Address: [address] [place] [address] Performed By: #### 3 040-3, 51933-4, 88654-8, 45469-1, BEAU ####[facility] LABCLIA [id number] [place] [address] [place] AST [Catalytic activity/Vol] 27 U/L Normal 14-40 [facility] Comment on above: Order Comment: Speci men Type: BLOOD SPECIMENOrdering Facility: [facility] Address: [address] [place] [address] Performed By: #### 3 040-3, 90276-1, 70794-8, 49890-7, BEAU ####[facility] LABCLIA [id number] [address] [address] [place] Bilirubin [Mass/Vol] 0.7 mg/dL Normal 0.2-1.3 [facility] Comment on above: Order Comment: Speci men Type: BLOOD SPECIMENOrdering Facility: [facility] Address: [address] [place] [address] Performed By: #### 3 040-3, 43937-8, , 99798-6, BEAU ####[facility] LABCLIA [id number] [place] [address] [place] Calcium [Mass/Vol] 10.3 mg/dL High 8.5-10.2 [facility] Comment on above: Order Comment: Speci men Type: BLOOD SPECIMENOrdering Facility: [facility] Address: [address] [place], [place] [address] Performed By: #### 3 040-3, 21747-5, , 23970-9, BEAU ####[facility] LABCLIA [id number] [place] [address] [place] Chloride [Moles/Vol] 99 mmol/L Normal 97-105 [facility] Comment on above: Order Comment: Speci men Type: BLOOD SPECIMENOrdering Facility: [facility] Address: [address] [place], [place] [address] Performed By: #### 3 040-3, 39750-6, , 43643-2, BEAU ####[facility] LABCLIA [id number] [place] [id number] [place] CO2 [Moles/Vol] 26 mmol/L Normal 22-30 [facility] Comment on above: Order Comment: Speci men Type: BLOOD SPECIMENOrdering Facility: [facility] Address: [address] [place], [place] [address] Performed By: #### 3 040-3, 31516-9, , 21820-3, BEAU ####[facility]IA [id number] [place] [address] [place] Creatinine [Mass/Vol] 1.21 mg/dL Normal 0.73-1.22 [facility] Comment on above: Order Comment: Speci men Type: BLOOD SPECIMENOrdering Facility: [facility] Address: [address] [place] [address] Performed By: #### 3 040-3, 09898-5, 46673-5, 73079-5, BEAU ####[facility] [id number] [address] [place] ESTIMATED GLOMERULAR FILTRATION RATE 70 mL/min/1.73m??? Normal >=60 [facility] Comment on above: Order Comment: Spectricia men Type: BLOOD SPECIMENOrdering Facility: [facility] Address: [address] [place] [address] Result Comment: Laurita mated Glomerular Filtration Rate [...] actual GFR. Performed By: #### 3 040-3, 69187-7, 09996-9, 38577-3, BEAU ####[facility]IA [id number] [place] [address] [place] Glucose [Mass/Vol] 118 mg/dL High 74-99 [facility] Comment on above: Order Comment: Speci men Type: BLOOD SPECIMENOrdering Facility: [facility] Address: [address] [place] [address] Result Comment: The [place] Diabetes Association (ADA) provides guidance for cutoff [...] Standards of Medical Care in Diabetes 2016, [place] [employer]. Diabetes Care. 2016.39(Suppl 1). Performed By: #### 3 040-3, 70783-3, 24101-2, 95202-2, BEAU ####[facility] LABCLIA [id number] [place] [address] [place] Potassium [Moles/Vol] 4.1 mmol/L Normal 3.7-5.1 [facility] Comment on above: Order Comment: Speci men Type: BLOOD SPECIMENOrdering Facility: [facility] Address: [address] [place] [address] Performed By: #### 3 040-3, 46907-5, 62193-9, 95502-1, BEAU ####[facility] [id number] [place] [address] [place] Protein [Mass/Vol] 7.8 g/dL Normal 6.3-8.0 [facility] Comment on above: Order Comment: Speci men Type: BLOOD SPECIMENOrdering Facility: [facility] Address: [address] [place] [address] Performed By: #### 3 040-3, 61692-9, 37466-5, 86890-4, BEAU ####[facility] [id number] [place] [address] [place] Sodium [Moles/Vol] 137 mmol/L Normal 136-144 [facility] Comment on above: Order Comment: Speci men Type: BLOOD SPECIMENOrdering Facility: [facility] Address: [address] [place] [address] Performed By: #### 3 040-3, 66632-6, 24529-7, 98553-0, BEAU ####[facility] LABCLIA [id number] [place] [address] [place] Urea nitrogen [Mass/Vol] 13 mg/dL Normal 9-24 [facility] Comment on above: Order Comment: Speci men Type: BLOOD SPECIMENOrdering Facility: [facility] Address: [address] [place], [place] [address] Performed By: #### 3 040-3, 64611-8, 17692-9, 31461-2, BEAU ####[facility] LABCLIA [id number] [address] [place] D dimer FEU PPP-mCncon 08-17 Fibrin D-dimer FEU (PPP) [Mass/Vol] 1060 ng/mL FEU High <500 [facility] Comment on above: Order Comment: Speci men Type: BLOOD SPECIMENOrdering Facility: [facility] Address: [address] [place] [address] Performed By: #### 4 8065-7 ####[facility]IA [id number] [address] [place] ED NOTEon 08-17-2021 ED NOTE Normal [facility] ED PROV NOTEon 08-17-2021 ED PROV NOTE Normal [facility] ED PROV NOTE Normal [facility] Fibrin D-dimer FEU (PPP) [Ma ss/Vol]on 08-17-2021 D DIMER AGE-RELATED CUTOFF 570 ng/mL FEU Normal [facility] Comment on above: Order Comment: Speci men Type: BLOOD SPECIMENOrdering Facility: [facility] Address: [address] [place], [place] [address] Performed By: #### 4 8065-7 ####[facility] LABCLIA [id number] [place] [address] [place] Lipase SerPl-cCncon 08-18-19 22 Lipase [Catalytic activity/Vol] 22 U/L Normal 16-61 [facility] Comment on above: Order Comment: Speci men Type: BLOOD SPECIMENOrdering Facility: [facility] Address: [address] [place] [address] Performed By: #### 3 040-3, 40278-8, 41174-9, 46557-2, BEAU ####[facility] LABCLIA [id number] [place] [address] [place] Magnesium SerPl-mCncon 08-17 Magnesium [Mass/Vol] 2.0 mg/dL Normal 1.7-2.3 [facility] Comment on above: Order Comment: Speci men Type: BLOOD SPECIMENOrdering Facility: [facility] Address: [address] [place] [address] Performed By: #### 3 040-3, 46490-5, 65272-4, 11699-3, BEAU ####[facility] LABCLIA [id number] [address] [place] NT-proBNP SerPl-ncon 08-17 Natriuretic peptide.B prohormone N-Terminal [Mass/Vol] 1881 pg/mL High <125 [facility] Comment on above: Order Comment: Speci men Type: BLOOD SPECIMENOrdering Facility: [facility] Address: [address] [place] [address] Performed By: #### 3 040-3, 06291-9, 75131-7, 81711-8, BEAU ####[facility]IA [id number] [address] [place] TROPONIN Ton 08-17-2021 Troponin T.cardiac [Mass/Vol] 0.022 ug/L Normal 0.000-0.02 9 [facility] Comment on above: Order Comment: Speci men Type: BLOOD SPECIMENOrdering Facility: [facility] Address: [address] [place] [address] Performed By: #### 3 040-3, 08638-7, 16955-2, 50953-4, BEAU ####[facility] LABCLIA [id number] [place] [address] [place] Urinalysis complete panel (U )on 08-17-2021 Bilirubin Ql (U) Negative Normal Negative [facility] Comment on above: Order Comment: Speci men Type: URINE SPECIMENOrdering Facility: [facility] Address: [address] [place], [place] [address] Performed By: #### 2 4356-8 ####[facility]IA [id number] [place] [address] [place] Clarity (Unsp spec) Clear Normal Clear [facility] Comment on above: Order Comment: Speci men Type: URINE SPECIMENOrdering Facility: [facility] Address: [address] [place], [place] [address] Performed By: #### 2 4356-8 ####[facility]IA [id number] [place] [address] [place] Color (U) Yellow Normal Yellow [facility] Comment on above: Order Comment: Speci men Type: URINE SPECIMENOrdering Facility: [facility] Address: [address] [place], [place] [address] Performed By: #### 2 4356-8 ####[facility] LABCLIA [id number] [place] [address] [place] Epithelial cells LM.HPF (Urine sed) [#/Area] Few Normal [facility] Comment on above: Order Comment: Speci men Type: URINE SPECIMENOrdering Facility: [facility] Address: [address] [place], [place] [address] Performed By: #### 2 4356-8 ####[facility]IA [id number] [place] [address] [place] Glucose Test strip (U) [Mass/Vol] Negative Normal Negative [facility] Comment on above: Order Comment: Speci men Type: URINE SPECIMENOrdering Facility: [facility] Address: [address] Performed By: #### 2 4356-8 ####[facility] LABCLIA [id number] [address] STATES OF [facility] Hemoglobin Ql (U) Negative Normal Negative [facility] Comment on above: Order Comment: Speci men Type: URINE SPECIMENOrdering Facility: [facility] Address: [address] [place], [place] [address] Performed By: #### 2 4356-8 ####[facility] LABCLIA [id number] [address] [place] Hyaline casts (Urine sed) [#/Area] 1-3 /LPF Abnormal 0 /LPF [facility] Comment on above: Order Comment: Speci men Type: URINE SPECIMENOrdering Facility: [facility] Address: [address] [place], [place] [address] Performed By: #### 2 4356-8 ####[facility] LABCLIA [id number] [address] STATES [facility] Ketones Ql (U) Negative Normal Negative [facility] Comment on above: Order Comment: Speci men Type: URINE SPECIMENOrdering Facility: [facility] Address: [address] [place], [place] [address] Performed By: #### 2 4356-8 ####[facility] LABCLIA [id number] [address] [place] Leukocyte esterase Test strip Ql (U) Negative Normal Negative [facility] Comment on above: Order Comment: Speci men Type: URINE SPECIMENOrdering Facility: [facility] Address: [address] [place], [place] [address] Performed By: #### 2 4356-8 ####[facility] LABCLIA [id number] [place] [address] [place] Nitrite Ql (U) Negative Normal Negative [facility] Comment on above: Order Comment: Speci men Type: URINE SPECIMENOrdering Facility: [facility] Address: [address] [place] [address] Performed By: #### 2 4356-8 ####[facility]IA [id number] [place] [address] [place] pH (U) 7.0 [pH] Normal 5.0-8.0 [facility] Comment on above: Order Comment: Speci men Type: URINE SPECIMENOrdering Facility: [facility] Address: [address] [place] [address] Performed By: #### 2 4356-8 ####[facility]IA [id number] [address] STATES OF [facility] Protein (U) [Mass/Vol] Negative Normal Negative [facility] Comment on above: Order Comment: Speci men Type: URINE SPECIMENOrdering Facility: [facility] Address: [address] [place] [address] Performed By: #### 2 4356-8 ####[facility]IA [id number] [place] [address] [place] RBC LM.HPF (Urine sed) [#/Area] 0-3 /HPF Normal 0-3 /HPF [facility] Comment on above: Order Comment: Speci men Type: URINE SPECIMENOrdering Facility: [facility] Address: [address] [place], [place] [address] Performed By: #### 2 4356-8 ####[facility]IA [id number] [place] [address] [place] Specific gravity (U) [Rel density] 1.016 Normal 1.005-1.03 0 [facility] Comment on above: Order Comment: Speci men Type: URINE SPECIMENOrdering Facility: [facility] Address: [address] [place] [address] Performed By: #### 2 4356-8 ####[facility]IA [id number] [place] [address] [place] Urobilinogen Ql (U) Negative Normal Negative [facility] Comment on above: Order Comment: Speci men Type: URINE SPECIMENOrdering Facility: [facility] Address: [address] [place] [address] Performed By: #### 2 4356-8 ####[facility]IA [id number] [place] [address] [place] WBC LM.HPF (Urine sed) [#/Area] 0-5 /HPF Normal 0-5 /HPF [facility] Comment on above: Order Comment: Speci men Type: URINE SPECIMENOrdering Facility: [facility] Address: [address] [place] [address] Performed By: #### 2 4356-8 ####[facility] [id number] [place] [address] [place] XR CHEST 1V FRONTAL PORTon 0 08-17-2021 XR CHEST 1V FRONTAL PORT Normal [facility] CNPNon 08-13-2021 CNPN Normal [facility] CNPNon 08-12-2021 CNPN Normal [facility] CNPNon 08-11-2021 CNPN Normal [facility] ACTIVATED PTTon 08-08-2021 aPTT Coag (PPP) [Time] 29.9 s 23.0 - 32.4 sec [facility] CBC W Auto Differential pane l (Bld)on 08-08-2021 Basophils (Bld) [#/Vol] 10*3/uL Normal <0.11 C [facility] Comment on above: Order Comment: Speci men Type: BLOOD SPECIMENOrdering Facility: [facility] Address: [address] [place], [place] [address] Performed By: #### 5 7021-8 ####[facility] [id number] [address] STATES [facility] Basophils/100 WBC (Bld) 0.3 % Normal [facility] Comment on above: Order Comment: Speci men Type: BLOOD SPECIMENOrdering Facility: [facility] Address: [address] [place] [address] Performed By: #### 5 7021-8 ####[facility] [id number] [place] [address] Differential cell count method Nom (Bld) Auto Normal [facility] Comment on above: Order Comment: Speci men Type: BLOOD SPECIMENOrdering Facility: [facility] Address: [address] [place] [address] Performed By: #### 5 7021-8 ####[facility] [place] [id number] [place] [address] [place] [facility] Eosinophils (Bld) [#/Vol] 0.04 10*3/uL Normal <0.46 [facility] Comment on above: Order Comment: Speci men Type: BLOOD SPECIMENOrdering Facility: [facility] Address: [address] [place] [address] Performed By: #### 5 7021-8 ####[facility] [id number] [place] [address] Eosinophils/100 WBC (Bld) 0.7 % Normal [facility] Comment on above: Order Comment: Speci men Type: BLOOD SPECIMENOrdering Facility: [facility] Address: [address] [place], [place] [address] Performed By: #### 5 7021-8 ####[facility] [id number] [place] [address] [place] [facility] Erythrocyte distribution width (RBC) [Ratio] 15.6 % High 11.5-15.0 [facility] Comment on above: Order Comment: Speci men Type: BLOOD SPECIMENOrdering Facility: [facility] Address: [address] [place], [place] [address] Performed By: #### 5 7021-8 ####[facility] [id number] [address] [place] Hematocrit (Bld) [Volume fraction] 43.0 % Normal 39.0-51.0 [facility] Comment on above: Order Comment: Speci men Type: BLOOD SPECIMENOrdering Facility: [facility] Address: [address] [place], [place] [address] Performed By: #### 5 7021-8 ####[facility] [id number] [place] [address] [place] Hemoglobin (Bld) [Mass/Vol] 14.6 g/dL Normal 13.0-17.0 [facility] Comment on above: Order Comment: Speci men Type: BLOOD SPECIMENOrdering Facility: [facility] Address: [address] [place], [place] [address] Performed By: #### 5 7021-8 ####[facility] [id number] [address] OF [facility] IMMATURE GRAN % 0.3 % Normal [facility] Comment on above: Order Comment: Speci men Type: BLOOD SPECIMENOrdering Facility: [facility] Address: [address] [place], [place] [address] Performed By: #### 5 7021-8 ####[facility] [id number] [place] [address] [place] IMMATURE GRAN ABS <0.03 Normal <0.10 [facility] Comment on above: Order Comment: Speci men Type: BLOOD SPECIMENOrdering Facility: [facility] Address: [address] [place], [place] [address] Performed By: #### 5 7021-8 ####[facility] [id number] [place] [address] [place] Lymphocytes (Bld) [#/Vol] 1.61 10*3/uL Normal 1.00-4.00 [facility] Comment on above: Order Comment: Speci men Type: BLOOD SPECIMENOrdering Facility: [facility] Address: [address] [place], [place] [address] Performed By: #### 5 7021-8 ####[facility] [id number] [place] [address] [place] [facility] Lymphocytes/100 WBC (Bld) 26.6 % Normal [facility] Comment on above: Order Comment: Speci men Type: BLOOD SPECIMENOrdering Facility: [facility] Address: [address] [place] [address] Performed By: #### 5 7021-8 ####[facility] [id number] [place] [address] [place] MCH (RBC) [Entitic mass] 29.9 pg Normal 26.0-34.0 [facility] Comment on above: Order Comment: Speci men Type: BLOOD SPECIMENOrdering Facility: [facility] Address: [address] [place], [place] [address] Performed By: #### 5 7021-8 ####[facility] [id number] [address] STATES OF [facility] MCHC (RBC) [Mass/Vol] 34.0 g/dL Normal 30.5-36.0 [facility] Comment on above: Order Comment: Speci men Type: BLOOD SPECIMENOrdering Facility: [facility] Address: [address] [place], [place] [address] Performed By: #### 5 7021-8 ####[facility] [id number] [place] [address] [place] MCV (RBC) [Entitic vol] 87.9 fL Normal 80.0-100.0 C [facility] Comment on above: Order Comment: Speci men Type: BLOOD SPECIMENOrdering Facility: [facility] Address: [address] [place] [address] Performed By: #### 5 7021-8 ####[facility] [id number] [place] [address] [place] Monocytes (Bld) [#/Vol] 0.40 10*3/uL Normal <0.87 [facility] Comment on above: Order Comment: Speci men Type: BLOOD SPECIMENOrdering Facility: [facility] Address: [address] [place] [address] Performed By: #### 5 7021-8 ####[facility] [id number] [place] [address] [place] Monocytes/100 WBC (Bld) 6.6 % Normal C [facility] Comment on above: Order Comment: Speci men Type: BLOOD SPECIMENOrdering Facility: [facility] Address: [address] [place] [address] Performed By: #### 5 7021-8 ####[facility] [id number] [place] [address] [place] Neutrophils (Bld) [#/Vol] 3.97 10*3/uL Normal 1.45-7.50 [facility] Comment on above: Order Comment: Speci men Type: BLOOD SPECIMENOrdering Facility: [facility] Address: [address] [place] [address] Performed By: #### 5 7021-8 ####[facility] [id number] [place] [address] [place] Neutrophils/100 WBC (Bld) 65.5 % Normal [facility] Comment on above: Order Comment: Speci men Type: BLOOD SPECIMENOrdering Facility: [facility] Address: [address] [place], [place] [address] Performed By: #### 5 7021-8 ####[facility] [id number] [address] [place] Nucleated RBC (Bld) [#/Vol] 10*3/uL Normal <0.01 [facility] Comment on above: Order Comment: Speci men Type: BLOOD SPECIMENOrdering Facility: [facility] Address: [address] [place], [place] [phone] Performed By: #### 5 7021-8 ####[facility] [place] [id number] [place] [address] [place] Nucleated RBC/100 WBC (Bld) [Ratio] 0.0 /100 WBC Normal [facility] Comment on above: Order Comment: Speci men Type: BLOOD SPECIMENOrdering Facility: [facility] Address: [address] [place], [place] [phone] Performed By: #### 5 7021-8 ####[facility] [place] [place] [id number] [place] [address] [place] Platelet mean volume (Bld) [Entitic vol] 10.1 fL Normal 9.0-12.7 [facility] Comment on above: Order Comment: Speci men Type: BLOOD SPECIMENOrdering Facility: [facility] Address: [address] [place] [address] Performed By: #### 5 7021-8 ####[facility] [id number] [place] [address] [place] Platelets (Bld) [#/Vol] 263 10*3/uL Normal 150-400 [facility] Comment on above: Order Comment: Speci men Type: BLOOD SPECIMENOrdering Facility: [facility] Address: [address] [place] [address] Performed By: #### 5 7021-8 ####[facility] [id number] [place] [address] [place] [facility] RBC (Bld) [#/Vol] 4.89 10*6/uL Normal 4.20-6.00 [facility] Comment on above: Order Comment: Speci men Type: BLOOD SPECIMENOrdering Facility: [facility] Address: [address] [place] [address] Performed By: #### 5 7021-8 ####[facility] [id number] [address] STATES OF [facility] WBC (Bld) [#/Vol] 6.06 10*3/uL Normal 3.70-11.00 [facility] Comment on above: Order Comment: Speci men Type: BLOOD SPECIMENOrdering Facility: [facility] Address: [address] [place] [address] Performed By: #### 5 7021-8 ####[facility] [id number] [address] STATES OF [facility] Abs Immature Gran <0.03 <0.10 k/uL [facility] Basophils (Bld) [#/Vol] 10*3/uL <0.11 k/uL [facility] Basophils/100 WBC (Bld) 0.3 % [facility] Differential cell count method Nom (Bld) Auto [facility] Eosinophils (Bld) [#/Vol] 0.04 10*3/uL <0.46 k/uL [facility] Eosinophils/100 WBC (Bld) 0.7 % [facility] Erythrocyte distribution width (RBC) [Ratio] 15.6 % High 11.5 - 15.0 % [facility] Hematocrit (Bld) [Volume fraction] 43.0 % 39.0 - 51.0 % [facility] Hemoglobin (Bld) [Mass/Vol] 14.6 g/dL 13.0 - 17.0 g/dL [facility] Immature Gran % 0.3 % [facility] Lymphocytes (Bld) [#/Vol] 1.61 10*3/uL 1.00 - 4.00 k/uL [facility] Lymphocytes/100 WBC (Bld) 26.6 % [facility] MCH (RBC) [Entitic mass] 29.9 pg 26.0 - 34.0 pg [facility] MCHC (RBC) [Mass/Vol] 34.0 g/dL 30.5 - 36.0 g/dL [facility] MCV (RBC) [Entitic vol] 87.9 fL 80.0 - 100.0 fL [facility] Monocytes (Bld) [#/Vol] 0.40 10*3/uL <0.87 k/uL [facility] Monocytes/100 WBC (Bld) 6.6 % [facility] Neutrophils (Bld) [#/Vol] 3.97 10*3/uL 1.45 - 7.50 k/uL [facility] Neutrophils/100 WBC (Bld) 65.5 % [facility] Nucleated RBC (Bld) [#/Vol] 10*3/uL <0.01 k/uL [facility] Nucleated RBC/100 WBC (Bld) [Ratio] 0.0 /100 WBC [facility] Platelet mean volume (Bld) [Entitic vol] 10.1 fL 9.0 - 12.7 fL [facility] Platelets (Bld) [#/Vol] 263 10*3/uL 150 - 400 k/uL [facility] RBC (Bld) [#/Vol] 4.89 10*6/uL 4.20 - 6.00 m/uL [facility] WBC (Bld) [#/Vol] 6.06 10*3/uL 3.70 - 11.00 k/uL [facility] CNNURSEon 08-08-2021 CNNURSE Normal [facility] CNOVSPon 08-08-2021 CNOVSP Normal [facility] CNSWon 08-08-2021 CNSW Normal [facility] Comprehensive metabolic 2000 panelon 08-08-2021 Albumin [Mass/Vol] 4.2 g/dL Normal 3.9-4.9 [facility] Comment on above: Order Comment: Speci men Type: BLOOD SPECIMENOrdering Facility: [facility] Address: [address] [place] [address] Performed By: #### 2 4323-8, 3084-1, ####[facility] [id number] [place] [address] [place] ALP [Catalytic activity/Vol] 56 U/L Normal 38-113 [facility] Comment on above: Order Comment: Speci men Type: BLOOD SPECIMENOrdering Facility: [facility] Address: [address] [place], [place] [address] Performed By: #### 2 4323-8, 3084-, ####[facility] [id number] [address] [place] ALT [Catalytic activity/Vol] 34 U/L Normal 10-54 [facility] Comment on above: Order Comment: Speci men Type: BLOOD SPECIMENOrdering Facility: [facility] Address: [address] [place], [place] [address] Performed By: #### 2 4323-8, 3083-03, ####[facility] [id number] [place] [address] [place] Anion gap [Moles/Vol] 10 mmol/L Normal 9-18 [facility] Comment on above: Order Comment: Speci men Type: BLOOD SPECIMENOrdering Facility: [facility] Address: [address] [place], [place] [address] Performed By: #### 2 4323-8, 3083-03, ####[facility] [id number] [place] [id number] [place] AST [Catalytic activity/Vol] 18 U/L Normal 14-40 [facility] Comment on above: Order Comment: Speci men Type: BLOOD SPECIMENOrdering Facility: [facility] Address: [address] [place] [address] Performed By: #### 2 4323-8, 3083-1, ####[facility] [id number] [address] [address] [place] Bilirubin [Mass/Vol] 0.5 mg/dL Normal 0.2-1.3 [facility] Comment on above: Order Comment: Speci men Type: BLOOD SPECIMENOrdering Facility: [facility] Address: [address] [place], [place] [address] Performed By: #### 2 4323-8, 3083-, ####[facility] [id number] [place] [address] [place] Calcium [Mass/Vol] 9.6 mg/dL Normal 8.5-10.2 [facility] Comment on above: Order Comment: Speci men Type: BLOOD SPECIMENOrdering Facility: [facility] Address: [address] [place], [place] [address] Performed By: #### 2 4323-8, 3083-03, ####[facility] [id number] [place] [address] [place] Chloride [Moles/Vol] 103 mmol/L Normal 97-105 [facility] Comment on above: Order Comment: Speci men Type: BLOOD SPECIMENOrdering Facility: [facility] Address: [address] [place], [place] [address] Performed By: #### 2 4323-8, 3083-03, ####[facility] [id number] [place] [id number] [place] CO2 [Moles/Vol] 26 mmol/L Normal 22-30 [facility] Comment on above: Order Comment: Speci men Type: BLOOD SPECIMENOrdering Facility: [facility] Address: [address] [place], [place] [address] Performed By: #### 2 4323-8, 3083-03, ####[facility] [id number] [place] [address] [place] Creatinine [Mass/Vol] 1.24 mg/dL High 0.73-1.22 [facility] Comment on above: Order Comment: Aaliyah gibson Type: BLOOD SPECIMENOrdering Facility: [facility] Address: [address] [place], [place] [phone] Performed By: #### 2 4323-8, 3084-1, ####[facility] [id number] [place] [address] [place] ESTIMATED GLOMERULAR FILTRATION RATE 68 mL/min/1.73m??? Normal >=60 [facility] Comment on above: Order Comment: Aaliyah gibson Type: BLOOD SPECIMENOrdering Facility: [facility] Address: [address] [place] [address] Result Comment: Laurita mated Glomerular Filtration Rate [...] #### 2 4323-8, 3083-1, ####[facility] [id number] [place] [address] [place] Glucose [Mass/Vol] 119 mg/dL High 74-99 [facility] Comment on above: Order Comment: Aaliyah gibson Type: BLOOD SPECIMENOrdering Facility: [facility] Address: [address] [place] [address] Result Comment: The [place] [employer] (ADA) provides guidance for cutoff [...] Standards of Medical Care in Diabetes 2016, [place] [employer]. Diabetes Care. 2016.39(Suppl 1). Performed By: #### 2 4323-8, 3084-1, ####[facility] [id number] [place] [address] [place] Potassium [Moles/Vol] 4.2 mmol/L Normal 3.7-5.1 [facility] Comment on above: Order Comment: Speci men Type: BLOOD SPECIMENOrdering Facility: [facility] Address: [address] [place] [address] Performed By: #### 2 4323-8, 3083-03, ####[facility] [id number] [place] [address] [place] Protein [Mass/Vol] 6.8 g/dL Normal 6.3-8.0 [facility] Comment on above: Order Comment: Aaliyah gibson Type: BLOOD SPECIMENOrdering Facility: [facility] Address: [address] [place] [address] Performed By: #### 2 4323-8, 3083-03, ####[facility] [id number] [place] [address] [place] Sodium [Moles/Vol] 139 mmol/L Normal 136-144 [facility] Comment on above: Order Comment: Speci men Type: BLOOD SPECIMENOrdering Facility: [facility] Address: [address] [place] [address] Performed By: #### 2 4323-8, 30806-06, ####[facility] [id number] [place] [id number] [place] Urea nitrogen [Mass/Vol] 15 mg/dL Normal 9-24 [facility] Comment on above: Order Comment: Speci men Type: BLOOD SPECIMENOrdering Facility: [facility] Address: [address] [place], [place] [address] Performed By: #### 2 4323-8, 3084-1, 79524-6 ####[facility] [id number] [address] STATES OF [facility] Albumin [Mass/Vol] 4.2 g/dL 3.9 - 4.9 g/dL [facility] ALP [Catalytic activity/Vol] 56 U/L 38 - 113 U/L [facility] ALT [Catalytic activity/Vol] 34 U/L 10 - 54 U/L [facility] Anion gap [Moles/Vol] 10 mmol/L 9 - 18 mmol/L [facility] AST [Catalytic activity/Vol] 18 U/L 14 - 40 U/L [facility] Bilirubin [Mass/Vol] 0.5 mg/dL 0.2 - 1 .3 mg/dL [facility] Calcium [Mass/Vol] 9.6 mg/dL 8.5 - 10. 2 mg/dL [facility] Chloride [Moles/Vol] 103 mmol/L 97 - 10 5 mmol/L [facility] CO2 [Moles/Vol] 26 mmol/L 22 - 30 mmol/L [facility] Creatinine [Mass/Vol] 1.24 mg/dL High 0.73 - 1.22 mg/dL [facility] Estimated Glomerular Filtration Rate 68 mL/min/1.73m >=60 mL/min/1.7 3m [facility] Glucose [Mass/Vol] 119 mg/dL High 74 - 99 mg/dL [facility] Potassium [Moles/Vol] 4.2 mmol/L 3.7 - 5.1 mmol/L [facility] Protein [Mass/Vol] 6.8 g/dL 6.3 - 8.0 g/dL [facility] Sodium [Moles/Vol] 139 mmol/L 136 - 144 mmol/L [facility] Urea nitrogen [Mass/Vol] 15 mg/dL 9 - 24 mg/dL [facility] LD LACTATE DEHYDROon 022 LDH [Catalytic activity/Vol] 232 U/L High 135 - 225 U/L [facility] LDH SerPl-cCncon 08-08-2021 LDH [Catalytic activity/Vol] 232 U/L High 135-225 [facility] Comment on above: Order Comment: Aaliyah gibson Type: BLOOD SPECIMENOrdering Facility: [facility] Address: [address] [place] [address] Performed By: #### 2 532-0 ####[facility] [id number] [place] [address] [place] MAGNESIUM BLDon 08-08-2021 Magnesium [Mass/Vol] 2.1 mg/dL 1.7 - 2 .3 mg/dL [facility] Magnesium SerPl-mCncon 08-08 Magnesium [Mass/Vol] 2.1 mg/dL Normal 1.7-2.3 [facility] Comment on above: Order Comment: Aaliyah gibson Type: BLOOD SPECIMENOrdering Facility: [facility] Address: [address] [place] [address] Performed By: #### 2 4323-8, 3084-1, 07261-8 ####[facility] [place] [id number] [place] [address] [place] PHOSPHORUS INORGANICon 08-08 Phosphate [Mass/Vol] 4.1 mg/dL 2.7 - 4 .8 mg/dL [facility] PT panel Coag (PPP)on 2021 INR Coag (PPP) [Relative time] 1.0 {INR} Normal 0.9-1.3 [facility] Comment on above: Order Comment: Aaliyah gibson Type: BLOOD SPECIMENOrdering Facility: [facility] Address: [address] [place], [place] [phone] Result Comment: Constanza min K Antagonist (VKA) Therapeutic Range: INR 2 to 3 (Target INR of 2.5)Note: For patients treated with VKA drugs, such as warfarin, the [place] [employer] 2012 Guideline recommends [...] al. Chest 2012, 141:7S-47SNishimura RA, et al. [facility] 2017, 70: 252-289 Performed By: #### 3 4528-0, 53855-8 ####[facility] [id number] [place] [address] [place] PT Coag (PPP) [Time] 10.7 s Normal 9.7-13.0 [facility] Comment on above: Order Comment: Aaliyah gibson Type: BLOOD SPECIMENOrdering Facility: [facility] Address: [address] [place] [address] Performed By: #### 3 4528-0, 60403-8 ####[facility] [id number] [place] [address] [place] INR Coag (PPP) [Relative time] 1.0 {INR} 0.9 - 1.3 [facility] PT Coag (PPP) [Time] 10.7 s 9.7 - 1 3.0 sec [facility] Phosphate SerPl-mCncon 08-08 Phosphate [Mass/Vol] 4.1 mg/dL Normal 2.7-4.8 [facility] Comment on above: Order Comment: Aaliyah gibson Type: BLOOD SPECIMENOrdering Facility: [facility] Address: [address] [place] [address] Performed By: #### 2 777-1 ####[facility] [id number] [place] [address] [place] URIC ACID BLOODon 08-08-2021 Urate [Mass/Vol] 7.5 mg/dL 4.0 - 8.1 mg/dL [facility] Urate SerPl-mCncon Urate [Mass/Vol] 7.5 mg/dL Normal 4.0-8.1 [facility] Comment on above: Order Comment: Speci men Type: BLOOD SPECIMENOrdering Facility: [facility] Address: [address] [place] [address] Performed By: #### 2 4323-8, 3084-1, 66980-6 ####[facility] [id number] [place] [address] [place] aPTT PPPon 08-08-2021 aPTT Coag (PPP) [Time] 29.9 s Normal 23.0-32.4 [facility] Comment on above: Order Comment: Speci men Type: BLOOD SPECIMENOrdering Facility: [facility] Address: [address] [place] [address] Performed By: #### 3 4528-0, 69114-7 ####[facility] [id number] [place] [address] [place] CBC W Auto Differential pane l (Bld)on 08-06-2021 Basophils (Bld) [#/Vol] 0.03 10*3/uL Normal <0.11 [facility] Comment on above: Order Comment: Speci men Type: BLOOD SPECIMENOrdering Facility: [facility] Address: [address] [place] [address] Performed By: #### 5 7021-8 ####[facility] [place] [id number] [address] STATES OF [facility] Basophils/100 WBC (Bld) 0.5 % Normal C [facility] Comment on above: Order Comment: Speci men Type: BLOOD SPECIMENOrdering Facility: [facility] Address: [address] [place] [address] Performed By: #### 5 7021-8 ####[facility] [id number] [place] [address] [place] Differential cell count method Nom (Bld) Auto Normal [facility] Comment on above: Order Comment: Speci men Type: BLOOD SPECIMENOrdering Facility: [facility] Address: [address] [place] [address] Performed By: #### 5 7021-8 ####[facility] [place] [id number] [place] [address] [place] Eosinophils (Bld) [#/Vol] 0.05 10*3/uL Normal <0.46 [facility] Comment on above: Order Comment: Speci men Type: BLOOD SPECIMENOrdering Facility: [facility] Address: [address] [place] [address] Performed By: #### 5 7021-8 ####[facility] [place] [id number] [place] [address] [place] Eosinophils/100 WBC (Bld) 0.8 % Normal [facility] Comment on above: Order Comment: Speci men Type: BLOOD SPECIMENOrdering Facility: [facility] Address: [address] [place] [address] Performed By: #### 5 7021-8 ####[facility] [place] [id number] [place] [address] [place] Erythrocyte distribution width (RBC) [Ratio] 15.7 % High 11.5-15.0 [facility] Comment on above: Order Comment: Speci men Type: BLOOD SPECIMENOrdering Facility: [facility] Address: [address] [place] [address] Performed By: #### 5 7021-8 ####[facility] [id number] [place] [address] [place] Hematocrit (Bld) [Volume fraction] 43.7 % Normal 39.0-51.0 [facility] Comment on above: Order Comment: Speci men Type: BLOOD SPECIMENOrdering Facility: [facility] Address: [address] [place] [address] Performed By: #### 5 7021-8 ####[facility] [id number] [place] [address] [place] Hemoglobin (Bld) [Mass/Vol] 14.8 g/dL Normal 13.0-17.0 [facility] Comment on above: Order Comment: Speci men Type: BLOOD SPECIMENOrdering Facility: [facility] Address: [address] [place] [address] Performed By: #### 5 7021-8 ####[facility] [place] [id number] [place] [address] OF [facility] IMMATURE GRAN % 0.5 % Normal [facility] Comment on above: Order Comment: Speci men Type: BLOOD SPECIMENOrdering Facility: [facility] Address: [address] [place] [address] Performed By: #### 5 7021-8 ####[facility] [id number] [place] [address] IMMATURE GRAN ABS 0.03 k/uL Normal <0.10 [facility] Comment on above: Order Comment: Speci men Type: BLOOD SPECIMENOrdering Facility: [facility] Address: [address] [place], [place] [phone] Performed By: #### 5 7021-8 ####[facility] [id number] [place] [address] [place] Lymphocytes (Bld) [#/Vol] 1.42 10*3/uL Normal 1.00-4.00 [facility] Comment on above: Order Comment: Speci men Type: BLOOD SPECIMENOrdering Facility: [facility] Address: [address] [place], [place] [address] Performed By: #### 5 7021-8 ####[facility] [id number] [address] STATES [facility] Lymphocytes/100 WBC (Bld) 23.2 % Normal [facility] Comment on above: Order Comment: Speci men Type: BLOOD SPECIMENOrdering Facility: [facility] Address: [address] [place] [address] Performed By: #### 5 7021-8 ####[facility] [id number] [place] [address] [place] MCH (RBC) [Entitic mass] 29.9 pg Normal 26.0-34.0 [facility] Comment on above: Order Comment: Speci men Type: BLOOD SPECIMENOrdering Facility: [facility] Address: [address] [place] [address] Performed By: #### 5 7021-8 ####[facility] [id number] [place] [address] MCHC (RBC) [Mass/Vol] 33.9 g/dL Normal 30.5-36.0 [facility] Comment on above: Order Comment: Speci men Type: BLOOD SPECIMENOrdering Facility: [facility] Address: [address] [place] [address] Performed By: #### 5 7021-8 ####[facility] [id number] [address] MCV (RBC) [Entitic vol] 88.3 fL Normal 80.0-100.0 C [facility] Comment on above: Order Comment: Speci men Type: BLOOD SPECIMENOrdering Facility: [facility] Address: [address] [place] [address] Performed By: #### 5 7021-8 ####[facility] [id number] [address] [id number] [address] [place] Monocytes (Bld) [#/Vol] 0.50 10*3/uL Normal <0.87 [facility] Comment on above: Order Comment: Speci men Type: BLOOD SPECIMENOrdering Facility: [facility] Address: [address] [place] [address] Performed By: #### 5 7021-8 ####[facility] [id number] [place] [address] [place] Monocytes/100 WBC (Bld) 8.2 % Normal [facility] Comment on above: Order Comment: Speci men Type: BLOOD SPECIMENOrdering Facility: [facility] Address: [address] [place], [place] [phone] Performed By: #### 5 7021-8 ####[facility] [id number] [place] [address] [place] Neutrophils (Bld) [#/Vol] 4.08 10*3/uL Normal 1.45-7.50 [facility] Comment on above: Order Comment: Speci men Type: BLOOD SPECIMENOrdering Facility: [facility] Address: [address] [place], [place] [phone] Performed By: #### 5 7021-8 ####[facility] [id number] [place] [address] [place] Neutrophils/100 WBC (Bld) 66.8 % Normal [facility] Comment on above: Order Comment: Speci men Type: BLOOD SPECIMENOrdering Facility: [facility] Address: [address] [place], [place] [id number] Performed By: #### 5 7021-8 ####[facility] [id number] [place] [address] [place] Nucleated RBC (Bld) [#/Vol] 10*3/uL Normal <0.01 [facility] Comment on above: Order Comment: Speci men Type: BLOOD SPECIMENOrdering Facility: [facility] Address: [address] [place], [place] [id number] Performed By: #### 5 7021-8 ####[facility] [id number] [place] [address] Nucleated RBC/100 WBC (Bld) [Ratio] 0.0 /100 WBC Normal [facility] Comment on above: Order Comment: Speci men Type: BLOOD SPECIMENOrdering Facility: [facility] Address: [address] [place], [place] [address] Performed By: #### 5 7021-8 ####[facility] [id number] [place] [address] [place] Platelet mean volume (Bld) [Entitic vol] 10.2 fL Normal 9.0-12.7 [facility] Comment on above: Order Comment: Speci men Type: BLOOD SPECIMENOrdering Facility: [facility] Address: [address] [place], [place] [address] Performed By: #### 5 7021-8 ####[facility] [id number] [place] [address] [place] Platelets (Bld) [#/Vol] 262 10*3/uL Normal 150-400 [facility] Comment on above: Order Comment: Speci men Type: BLOOD SPECIMENOrdering Facility: [facility] Address: [address] [place], [place] [address] Performed By: #### 5 7021-8 ####[facility] [id number] [place] [address] [place] RBC (Bld) [#/Vol] 4.95 10*6/uL Normal 4.20-6.00 [facility] Comment on above: Order Comment: Speci men Type: BLOOD SPECIMENOrdering Facility: [facility] Address: [address] [place], [place] [address] Performed By: #### 5 7021-8 ####[facility] [id number] [place] [address] [place] WBC (Bld) [#/Vol] 6.11 10*3/uL Normal 3.70-11.00 [facility] Comment on above: Order Comment: Speci men Type: BLOOD SPECIMENOrdering Facility: [facility] Address: [address] [place] [address] Performed By: #### 5 7021-8 ####[facility] [id number] [place] [address] [place] CNNURSEon 08-06-2021 CNNURSE Normal [facility] CNOVSPon 08-06-2021 CNOVSP Normal [facility] CT ABD/PEL W IVCONon 022 CT ABD/PEL W IVCON Normal [facility] Comprehensive metabolic 2000 panelon 08-06-2021 Albumin [Mass/Vol] 4.3 g/dL Normal 3.9-4.9 [facility] Comment on above: Order Comment: Speci men Type: BLOOD SPECIMENOrdering Facility: [facility] Address: [address] [place], [place] [address] Performed By: #### 2 4323-8, 1, ####[facility] [id number] [place] [address] [place] ALP [Catalytic activity/Vol] 64 U/L Normal 38-113 [facility] Comment on above: Order Comment: Speci men Type: BLOOD SPECIMENOrdering Facility: [facility] Address: [address] [place], [place] [address] Performed By: #### 2 4323-8, 3083-, ####[facility] [id number] [place] [address] [place] ALT [Catalytic activity/Vol] 52 U/L Normal 10-54 [facility] Comment on above: Order Comment: Speci men Type: BLOOD SPECIMENOrdering Facility: [facility] Address: [address] [place], [place] [address] Performed By: #### 2 4323-8, 3083-1, ####[facility] [id number] [place] [address] [place] Anion gap [Moles/Vol] 9 mmol/L Normal 9-18 [facility] Comment on above: Order Comment: Speci men Type: BLOOD SPECIMENOrdering Facility: [facility] Address: [address] [place], [place] [address] Performed By: #### 2 4323-8, 3083-, ####[facility] [id number] [place] [address] [place] AST [Catalytic activity/Vol] 46 U/L High 14-40 [facility] Comment on above: Order Comment: Speci men Type: BLOOD SPECIMENOrdering Facility: [facility] Address: [address] [place] [address] Performed By: #### 2 4323-8, 3083-03, ####[facility] [id number] [place] [address] [place] Bilirubin [Mass/Vol] 0.3 mg/dL Normal 0.2-1.3 [facility] Comment on above: Order Comment: Speci men Type: BLOOD SPECIMENOrdering Facility: [facility] Address: [address] [place], [place] [address] Performed By: #### 2 4323-8, 3081, ####[facility] [id number] [place] [address] [place] Calcium [Mass/Vol] 9.1 mg/dL Normal 8.5-10.2 [facility] Comment on above: Order Comment: Speci men Type: BLOOD SPECIMENOrdering Facility: [facility] Address: [address] [place] [address] Performed By: #### 2 4323-8, 308-1, ####[facility] [id number] [place] [address] [place] Chloride [Moles/Vol] 107 mmol/L High 97-105 [facility] Comment on above: Order Comment: Speci men Type: BLOOD SPECIMENOrdering Facility: [facility] Address: [address] [place] [address] Performed By: #### 2 4323-8, 3083-, ####[facility] [id number] [place] [address] [place] CO2 [Moles/Vol] 25 mmol/L Normal 22-30 [facility] Comment on above: Order Comment: Speci men Type: BLOOD SPECIMENOrdering Facility: [facility] Address: [address] [place] [address] Performed By: #### 2 4323-8, 3083-, ####[facility] [id number] [place] [address] [place] Creatinine [Mass/Vol] 1.24 mg/dL High 0.73-1.22 [facility] Comment on above: Order Comment: Speci men Type: BLOOD SPECIMENOrdering Facility: [facility] Address: [address] [place] [address] Performed By: #### 2 4323-8, 3081, ####[facility] [id number] [place] [address] [place] ESTIMATED GLOMERULAR FILTRATION RATE 68 mL/min/1.73m??? Normal >=60 [facility] Comment on above: Order Comment: Speci men Type: BLOOD SPECIMENOrdering Facility: [facility] Address: [address] [place], [place] [address] Result Comment: Laurita mated Glomerular Filtration Rate [...] Performed By: #### 2 4323-8, 3083-1, ####[facility] [id number] [place] [address] [place] Glucose [Mass/Vol] 121 mg/dL High 74-99 [facility] Comment on above: Order Comment: Speci men Type: BLOOD SPECIMENOrdering Facility: [facility] Address: [address] [place], [place] [address] Result Comment: The [place] [employer] (ADA) provides guidance for cutoff [...] Standards of Medical Care in Diabetes 2016, [place] [employer]. Diabetes Care. 2016.39(Suppl 1). Performed By: #### 2 4323-8, 308-1, ####[facility] [id number] [place] [id number] [place] Potassium [Moles/Vol] 4.6 mmol/L Normal 3.7-5.1 [facility] Comment on above: Order Comment: Speci men Type: BLOOD SPECIMENOrdering Facility: [facility] Address: [address] [place], [place] [address] Performed By: #### 2 4323-8, 3084-1, ####[facility] [id number] [place] [address] [place] Protein [Mass/Vol] 6.9 g/dL Normal 6.3-8.0 [facility] Comment on above: Order Comment: Speci men Type: BLOOD SPECIMENOrdering Facility: [facility] Address: [address] [place], [place] [address] Performed By: #### 2 4323-8, 3084-1, ####[facility] [id number] [place] [address] [place] Sodium [Moles/Vol] 141 mmol/L Normal 136-144 [facility] Comment on above: Order Comment: Speci men Type: BLOOD SPECIMENOrdering Facility: [facility] Address: [address] [place], [place] [address] Performed By: #### 2 4323-8, 3084-1, ####[facility] [id number] [place] [address] [place] Urea nitrogen [Mass/Vol] 20 mg/dL Normal 9-24 [facility] Comment on above: Order Comment: Speci men Type: BLOOD SPECIMENOrdering Facility: [facility] Address: [address] [place] [address] Performed By: #### 2 4323-8, 308-1, ####[facility] [id number] [place] [id number] [place] LDH SerPl-cCncon 08-06-2021 LDH [Catalytic activity/Vol] 260 U/L High 135-225 [facility] Comment on above: Order Comment: Speci men Type: BLOOD SPECIMENOrdering Facility: [facility] Address: [address] [place] [address] Performed By: #### 2 532-0 ####[facility] [id number] [address] Magnesium SerPl-mCncon 08-06 Magnesium [Mass/Vol] 2.4 mg/dL High 1.7-2.3 [facility] Comment on above: Order Comment: Speci men Type: BLOOD SPECIMENOrdering Facility: [facility] Address: [address] [place] [address] Performed By: #### 2 4323-8, 3084-1, 37423-4 ####[facility] [id number] [address] PT panel Coag (PPP)on 2021 INR Coag (PPP) [Relative time] 1.0 {INR} Normal 0.9-1.3 [facility] Comment on above: Order Comment: Speci men Type: BLOOD SPECIMENOrdering Facility: [facility] Address: [address] [place] [address] Result Comment: Constanza min K Antagonist (VKA) Therapeutic Range: INR 2 to 3 (Target INR of 2.5)Note: For patients treated with VKA drugs, such as warfarin, the [place] [employer] 2012 Guideline recommends [...] al. Chest 2012, 141:7S-47SCaitie WHALEN, et al. [facility] 2017, 70: 252-289 Performed By: #### 3 4528-0, 33973-7 ####[facility] [id number] [place] [address] [place] PT Coag (PPP) [Time] 10.7 s Normal 9.7-13.0 [facility] Comment on above: Order Comment: Speci men Type: BLOOD SPECIMENOrdering Facility: [facility] Address: [address] [place] [address] Performed By: #### 3 4528-0, 57740-7 ####[facility] [id number] [place] [address] [place] Phosphate SerPl-mCncon 08-06 Phosphate [Mass/Vol] 3.8 mg/dL Normal 2.7-4.8 [facility] Comment on above: Order Comment: Speci men Type: BLOOD SPECIMENOrdering Facility: [facility] Address: [address] [place] [address] Performed By: #### 2 777-1 ####[facility] [id number] [place] [address] [place] T3 FREE BLDon 08-06-2021 Free T3 [Mass/Vol] 2.9 pg/mL Normal 2.3-4.1 [facility] Comment on above: Order Comment: Speci men Type: BLOOD SPECIMENOrdering Facility: [facility] Address: [address] [place] [address] Performed By: #### F T4, FREET3 ####[facility] [id number] [place] [address] [place] T4 FREE/FREE THYROXon 2021 Free T4 [Mass/Vol] 1.0 ng/dL Normal 0.9-1.7 [facility] Comment on above: Order Comment: Speci men Type: BLOOD SPECIMENOrdering Facility: [facility] Address: [address] [place] [address] Performed By: #### F T4, FREET3 ####[facility] [id number] [place] [address] [place] TSH SerPl-aCncon 08-06-2021 TSH Qn 1.770 m[IU]/L Normal 0.270-4.20 0 [facility] Comment on above: Order Comment: Speci men Type: BLOOD SPECIMENOrdering Facility: [facility] Address: [address] [place] [address] Performed By: #### 3 016-3 ####[facility] [id number] [place] [address] [place] Urate SerPl-mCncon 2 Urate [Mass/Vol] 7.2 mg/dL Normal 4.0-8.1 [facility] Comment on above: Order Comment: Speci men Type: BLOOD SPECIMENOrdering Facility: [facility] Address: [address] [place] [address] Performed By: #### 2 4323-8, 3084-1, 96114-5 ####[facility] [id number] [place] [address] [place] aPTT PPPon 08-06-2021 aPTT Coag (PPP) [Time] 28.8 s Normal 23.0-32.4 [facility] Comment on above: Order Comment: Speci men Type: BLOOD SPECIMENOrdering Facility: [facility] Address: [address] [place] [address] Performed By: #### 3 4528-0, 93457-5 ####[facility] [id number] [place] [address] [place] CNPNon 08-03-2021 CNPN Normal [facility] CNOVon 07-31-2021 CNOV Normal [facility] CNOV Normal [facility] NURSING PROGon 07-31-2021 NURSING PROG Normal [facility] CNPNon 07-30-2021 CNPN Normal [facility] CNPNon 07-29-2021 CNPN Normal [facility] CNPNon 07-25-2021 CNPN Normal [facility] CBC W Auto Differential pane l (Bld)on 07-24-2021 Basophils (Bld) [#/Vol] 0.04 10*3/uL Normal <0.11 [facility] Comment on above: Order Comment: Speci men Type: BLOOD SPECIMENOrdering Facility: [facility] Address: [address] [place] [address] Performed By: #### 5 7021-8 ####[facility] [id number] [place] [address] [place] Basophils/100 WBC (Bld) 0.3 % Normal [facility] Comment on above: Order Comment: Speci men Type: BLOOD SPECIMENOrdering Facility: [facility] Address: [address] [place] [address] Performed By: #### 5 7021-8 ####[facility] [id number] [place] [address] [place] Differential cell count method Nom (Bld) Auto Normal [facility] Comment on above: Order Comment: Speci men Type: BLOOD SPECIMENOrdering Facility: [facility] Address: [address] [place] [address] Performed By: #### 5 7021-8 ####[facility] [id number] [place] [address] [place] Eosinophils (Bld) [#/Vol] 10*3/uL Normal <0.46 [facility] Comment on above: Order Comment: Speci men Type: BLOOD SPECIMENOrdering Facility: [facility] Address: [address] [place] [address] Performed By: #### 5 7021-8 ####[facility] [id number] [id number] [address] [place] Eosinophils/100 WBC (Bld) 0.1 % Normal [facility] Comment on above: Order Comment: Speci men Type: BLOOD SPECIMENOrdering Facility: [facility] Address: [address] [place], [place] [address] Performed By: #### 5 7021-8 ####[facility] [id number] [address] [place] Erythrocyte distribution width (RBC) [Ratio] 15.9 % High 11.5-15.0 [facility] Comment on above: Order Comment: Speci men Type: BLOOD SPECIMENOrdering Facility: [facility] Address: [address] [place], [place] [address] Performed By: #### 5 7021-8 ####[facility] [id number] [place] [address] [place] Hematocrit (Bld) [Volume fraction] 43.2 % Normal 39.0-51.0 [facility] Comment on above: Order Comment: Speci men Type: BLOOD SPECIMENOrdering Facility: [facility] Address: [address] [place], [place] [address] Performed By: #### 5 7021-8 ####[facility] [id number] [place] [address] [place] Hemoglobin (Bld) [Mass/Vol] 14.7 g/dL Normal 13.0-17.0 [facility] Comment on above: Order Comment: Speci men Type: BLOOD SPECIMENOrdering Facility: [facility] Address: [address] [place], [place] [address] Performed By: #### 5 7021-8 ####[facility] [id number] [place] [address] [place] IMMATURE GRAN % 0.9 % Normal [facility] Comment on above: Order Comment: Speci men Type: BLOOD SPECIMENOrdering Facility: [facility] Address: [address] [place], [place] [address] Performed By: #### 5 7021-8 ####[facility] [id number] [place] [address] [place] IMMATURE GRAN ABS 0.10 k/uL High <0.10 [facility] Comment on above: Order Comment: Speci men Type: BLOOD SPECIMENOrdering Facility: [facility] Address: [address] [place], [place] [address] Performed By: #### 5 7021-8 ####[facility] [id number] [place] [address] OF [facility] Lymphocytes (Bld) [#/Vol] 2.16 10*3/uL Normal 1.00-4.00 [facility] Comment on above: Order Comment: Speci men Type: BLOOD SPECIMENOrdering Facility: [facility] Address: [address] [place], [place] [address] Performed By: #### 5 7021-8 ####[facility] [id number] [place] [address] Lymphocytes/100 WBC (Bld) 18.7 % Normal [facility] Comment on above: Order Comment: Speci men Type: BLOOD SPECIMENOrdering Facility: [facility] Address: [address] [place], [place] [address] Performed By: #### 5 7021-8 ####[facility] [id number] [place] [address] [place] MCH (RBC) [Entitic mass] 29.9 pg Normal 26.0-34.0 [facility] Comment on above: Order Comment: Speci men Type: BLOOD SPECIMENOrdering Facility: [facility] Address: [address] [place], [place] [address] Performed By: #### 5 7021-8 ####[facility] [id number] [place] [address] [place] MCHC (RBC) [Mass/Vol] 34.0 g/dL Normal 30.5-36.0 [facility] Comment on above: Order Comment: Speci men Type: BLOOD SPECIMENOrdering Facility: [facility] Address: [address] [place] [address] Performed By: #### 5 7021-8 ####[facility] [id number] [place] [address] OF [facility] MCV (RBC) [Entitic vol] 88.0 fL Normal 80.0-100.0 [facility] Comment on above: Order Comment: Speci men Type: BLOOD SPECIMENOrdering Facility: [facility] Address: [address] [place] [address] Performed By: #### 5 7021-8 ####[facility] [id number] [place] [address] [place] Monocytes (Bld) [#/Vol] 0.79 10*3/uL Normal <0.87 [facility] Comment on above: Order Comment: Speci men Type: BLOOD SPECIMENOrdering Facility: [facility] Address: [address] [place], [place] [address] Performed By: #### 5 7021-8 ####[facility] [id number] [place] [address] [place] Monocytes/100 WBC (Bld) 6.8 % Normal [facility] Comment on above: Order Comment: Speci men Type: BLOOD SPECIMENOrdering Facility: [facility] Address: [address] [place], [place] [address] Performed By: #### 5 7021-8 ####[facility] [id number] [place] [address] [place] Neutrophils (Bld) [#/Vol] 8.45 10*3/uL High 1.45-7.50 [facility] Comment on above: Order Comment: Speci men Type: BLOOD SPECIMENOrdering Facility: [facility] Address: [address] [place], [place] [address] Performed By: #### 5 7021-8 ####[facility] [id number] [place] [address] Neutrophils/100 WBC (Bld) 73.2 % Normal [facility] Comment on above: Order Comment: Speci men Type: BLOOD SPECIMENOrdering Facility: [facility] Address: [address] [place], [place] [address] Performed By: #### 5 7021-8 ####[facility] [id number] [place] [address] [place] Nucleated RBC (Bld) [#/Vol] 10*3/uL Normal <0.01 [facility] Comment on above: Order Comment: Speci men Type: BLOOD SPECIMENOrdering Facility: [facility] Address: [address] [place], [place] [address] Performed By: #### 5 7021-8 ####[facility] [place] [id number] [place] [address] Nucleated RBC/100 WBC (Bld) [Ratio] 0.0 /100 WBC Normal [facility] Comment on above: Order Comment: Speci men Type: BLOOD SPECIMENOrdering Facility: [facility] Address: [address] [place], [place] [address] Performed By: #### 5 7021-8 ####[facility] [id number] [place] [address] Platelet mean volume (Bld) [Entitic vol] 10.5 fL Normal 9.0-12.7 [facility] Comment on above: Order Comment: Speci men Type: BLOOD SPECIMENOrdering Facility: [facility] Address: [address] [place], [place] [address] Performed By: #### 5 7021-8 ####[facility] [id number] [place] [address] [place] Platelets (Bld) [#/Vol] 241 10*3/uL Normal 150-400 [facility] Comment on above: Order Comment: Speci men Type: BLOOD SPECIMENOrdering Facility: [facility] Address: [address] [place] [address] Performed By: #### 5 7021-8 ####[facility] [id number] [place] [address] [place] RBC (Bld) [#/Vol] 4.91 10*6/uL Normal 4.20-6.00 [facility] Comment on above: Order Comment: Speci men Type: BLOOD SPECIMENOrdering Facility: [facility] Address: [address] [place] [address] Performed By: #### 5 7021-8 ####[facility] [id number] [place] [address] [place] WBC (Bld) [#/Vol] 11.55 10*3/uL High 3.70-11.00 [facility] Comment on above: Order Comment: Speci men Type: BLOOD SPECIMENOrdering Facility: [facility] Address: [address] [place] [address] Performed By: #### 5 7021-8 ####[facility] [id number] [place] [address] [place] CNNURSEon 07-24-2021 CNNURSE Normal [facility] CNOVSPon 07-24-2021 CNOVSP Normal [facility] CNPNon 07-24-2021 CNPN Normal [facility] Comprehensive metabolic 2000 panelon 07-24-2021 Albumin [Mass/Vol] 4.0 g/dL Normal 3.9-4.9 [facility] Comment on above: Order Comment: Speci men Type: BLOOD SPECIMENOrdering Facility: [facility] Address: [address] [place], [place] [address] Performed By: #### 2 4323-8, 00637-6, 3083- ####[facility] LABCLIA [id number] [place] [id number] [place] ALP [Catalytic activity/Vol] 64 U/L Normal 38-113 [facility] Comment on above: Order Comment: Speci men Type: BLOOD SPECIMENOrdering Facility: [facility] Address: [address] [place], [place] [id number] Performed By: #### 2 4323-8, , 3083-03 ####[facility] LABCLIA [id number] [place] [address] [place] ALT [Catalytic activity/Vol] 36 U/L Normal 10-54 [facility] Comment on above: Order Comment: Speci men Type: BLOOD SPECIMENOrdering Facility: [facility] Address: [address] [place], [place] [id number] Performed By: #### 2 4323-8, , 3083-03 ####[facility] LABCLIA [id number] [place] [address] [place] Anion gap [Moles/Vol] 11 mmol/L Normal 9-18 [facility] Comment on above: Order Comment: Speci men Type: BLOOD SPECIMENOrdering Facility: [facility] Address: [address] [place], [place] [address] Performed By: #### 2 4323-8, 64255-3, 3083-03 ####[facility] LABCLIA [id number] [place] [address] [place] AST [Catalytic activity/Vol] 25 U/L Normal 14-40 [facility] Comment on above: Order Comment: Speci men Type: BLOOD SPECIMENOrdering Facility: [facility] Address: [address] [place], [place] [phone] Result Comment: Resu lts may be falsely increased due to interference from hemolysis. Suggest reorder as clinically indicated. Performed By: #### 2 4323-8, , 3083-03 ####[facility] LABCLIA [id number] [place] [id number] [place] Bilirubin [Mass/Vol] 0.2 mg/dL Normal 0.2-1.3 [facility] Comment on above: Order Comment: Speci men Type: BLOOD SPECIMENOrdering Facility: [facility] Address: [address] [place], [place] [address] Performed By: #### 2 4323-8, , 3083-03 ####[facility] LABIA [id number] [place] [address] [place] Calcium [Mass/Vol] 9.2 mg/dL Normal 8.5-10.2 [facility] Comment on above: Order Comment: Speci men Type: BLOOD SPECIMENOrdering Facility: [facility] Address: [address] [place], [place] [address] Performed By: #### 2 4323-8, , 3083-03 ####[facility] LABIA [id number] [place] [address] [place] Chloride [Moles/Vol] 104 mmol/L Normal 97-105 [facility] Comment on above: Order Comment: Speci men Type: BLOOD SPECIMENOrdering Facility: [facility] Address: [address] [place], [place] [address] Performed By: #### 2 4323-8, , 3083-03 ####[facility] LABCLIA [id number] [place] [id number] [place] CO2 [Moles/Vol] 26 mmol/L Normal 22-30 [facility] Comment on above: Order Comment: Speci men Type: BLOOD SPECIMENOrdering Facility: [facility] Address: [address] [phone] Performed By: #### 2 4323-8, , 3083-03 ####[facility] LABCLIA [id number] [address] [address] [place] Creatinine [Mass/Vol] 1.03 mg/dL Normal 0.73-1.22 [facility] Comment on above: Order Comment: Speci men Type: BLOOD SPECIMENOrdering Facility: [facility] Address: [address] [place], [place] [address] Performed By: #### 2 4323-8, , 3083-03 ####[facility] LABIA [id number] [place] [address] [place] ESTIMATED GLOMERULAR FILTRATION RATE 85 mL/min/1.73m??? Normal >=60 [facility] Comment on above: Order Comment: Speci men Type: BLOOD SPECIMENOrdering Facility: [facility] Address: [address] [place], [place] [address] Result Comment: Laurita mated Glomerular Filtration Rate [...] Performed By: #### 2 4323-8, , 3083-03 ####[facility] LABIA [id number] [address] [address] [place] Glucose [Mass/Vol] 103 mg/dL High 74-99 [facility] Comment on above: Order Comment: Speci men Type: BLOOD SPECIMENOrdering Facility: [facility] Address: [address] [phone] Result Comment: The [place] [employer] (ADA) provides guidance for cutoff [...] Standards of Medical Care in Diabetes 2016, [place] [employer]. Diabetes Care. 2016.39(Suppl 1). Performed By: #### 2 4323-8, 82667-2, 3083- ####[facility] LABIA [id number] [place] [address] [place] Potassium [Moles/Vol] 4.1 mmol/L Normal 3.7-5.1 [facility] Comment on above: Order Comment: Speci men Type: BLOOD SPECIMENOrdering Facility: [facility] Address: [address] [place] [address] Performed By: #### 2 4323-8, , 3083-03 ####[facility] LABIA [id number] [place] [address] [place] Protein [Mass/Vol] 6.6 g/dL Normal 6.3-8.0 [facility] Comment on above: Order Comment: Speci men Type: BLOOD SPECIMENOrdering Facility: [facility] Address: [address] [place] [address] Performed By: #### 2 4323-8, , 3083-03 ####[facility] LABIA [id number] [place] [address] [place] Sodium [Moles/Vol] 141 mmol/L Normal 136-144 [facility] Comment on above: Order Comment: Speci men Type: BLOOD SPECIMENOrdering Facility: [facility] Address: [address] [place], [place] [address] Performed By: #### 2 4323-8, 21209-0, 3084-1 ####[facility] LABIA [id number] [place] [address] [place] Urea nitrogen [Mass/Vol] 22 mg/dL Normal 9-24 [facility] Comment on above: Order Comment: Speci men Type: BLOOD SPECIMENOrdering Facility: [facility] Address: [address] [place], [place] [address] Performed By: #### 2 4323-8, 27978-9, 3084-1 ####[facility] LABIA [id number] [place] [address] [place] LDH SerPl-cCncon 07-24-2021 LDH [Catalytic activity/Vol] 217 U/L Normal 135-225 [facility] Comment on above: Order Comment: Speci men Type: BLOOD SPECIMENOrdering Facility: [facility] Address: [address] [place] [address] Performed By: #### 2 532-0 ####[facility] [id number] [place] [address] [place] Magnesium SerPl-mCncon 07-24 Magnesium [Mass/Vol] 2.3 mg/dL Normal 1.7-2.3 [facility] Comment on above: Order Comment: Speci men Type: BLOOD SPECIMENOrdering Facility: [facility] Address: [address] [place], [place] [address] Performed By: #### 2 4323-8, 32280-2, 3084-1 ####[facility] LABIA [id number] [place] [address] [place] PT panel Coag (PPP)on 2021 INR Coag (PPP) [Relative time] 1.0 {INR} Normal 0.9-1.3 [facility] Comment on above: Order Comment: Speci men Type: BLOOD SPECIMENOrdering Facility: [facility] Address: [facility] [place] [address] Result Comment: Constanza min K Antagonist (VKA) Therapeutic Range: INR 2 to 3 (Target INR of 2.5)Note: For patients treated with VKA drugs, such as warfarin, the [place] [employer] 2012 Guideline recommends [...] al. Chest 2012, 141:7S-47SNishnini RA, et al. [facility] 2017, 70: 252-289 Performed By: #### 3 4528-0, 34632-9 ####[facility] LABIA [id number] [place] [address] [place] PT Coag (PPP) [Time] 10.5 s Normal 9.7-13.0 [facility] Comment on above: Order Comment: Speci men Type: BLOOD SPECIMENOrdering Facility: [facility] Address: [address] [place], [place] [address] Performed By: #### 3 4528-0, 50375-8 ####[facility] LABIA [id number] [place] [address] [place] Phosphate SerPl-mCncon 07-24 Phosphate [Mass/Vol] 3.1 mg/dL Normal 2.7-4.8 [facility] Comment on above: Order Comment: Ronyi men Type: BLOOD SPECIMENOrdering Facility: [facility] Address: [address] [place], [place] [address] Performed By: #### 2 777-1 ####[facility] LABCLIA [id number] [place] [address] [place] Urate SerPl-mCncon Urate [Mass/Vol] 6.4 mg/dL Normal 4.0-8.1 [facility] Comment on above: Order Comment: Speci men Type: BLOOD SPECIMENOrdering Facility: [facility] Address: [address] [place] [address] Performed By: #### 2 4323-8, 98094-5, 3084-1 ####[facility] LABIA [id number] [place] [address] [place] aPTT PPPon 07-24-2021 aPTT Coag (PPP) [Time] 27.5 s Normal 23.0-32.4 Cl [facility] Comment on above: Order Comment: Speci men Type: BLOOD SPECIMENOrdering Facility: [facility] Address: [address] [place] [address] Performed By: #### 3 4528-0, 21833-3 ####[facility] [id number] [place] [address] [place] CNPNon 07-23-2021 CNPN Normal [facility] ACTIVATED PTTon 07-21-2021 aPTT Coag (PPP) [Time] 29.1 s 23.0 - 32.4 sec [facility] CBC W Auto Differential pane l (Bld)on 07-21-2021 Basophils (Bld) [#/Vol] 0.04 10*3/uL Normal <0.11 [facility] Comment on above: Order Comment: Speci men Type: BLOOD SPECIMENOrdering Facility: [facility] Address: [address] [place] [address] Performed By: #### 5 7021-8 ####[facility] [id number] [place] [address] [place] Basophils/100 WBC (Bld) 0.5 % Normal C [facility] Comment on above: Order Comment: Speci men Type: BLOOD SPECIMENOrdering Facility: [facility] Address: [address] [place], [place] [address] Performed By: #### 5 7021-8 ####[facility] [id number] [place] [address] [place] Differential cell count method Nom (Bld) Auto Normal [facility] Comment on above: Order Comment: Speci men Type: BLOOD SPECIMENOrdering Facility: [facility] Address: [address] [place], [place] [address] Performed By: #### 5 7021-8 ####[facility] [id number] [place] [address] [place] Eosinophils (Bld) [#/Vol] 0.05 10*3/uL Normal <0.46 [facility] Comment on above: Order Comment: Speci men Type: BLOOD SPECIMENOrdering Facility: [facility] Address: [address] [place], [place] [address] Performed By: #### 5 7021-8 ####[facility] [id number] [address] [place] Eosinophils/100 WBC (Bld) 0.7 % Normal [facility] Comment on above: Order Comment: Speci men Type: BLOOD SPECIMENOrdering Facility: [facility] Address: [address] [place], [place] [address] Performed By: #### 5 7021-8 ####[facility] [id number] [place] [address] [place] Erythrocyte distribution width (RBC) [Ratio] 15.5 % High 11.5-15.0 [facility] Comment on above: Order Comment: Speci men Type: BLOOD SPECIMENOrdering Facility: [facility] Address: [address] [place], [place] [address] Performed By: #### 5 7021-8 ####[facility] [id number] [address] Hematocrit (Bld) [Volume fraction] 45.5 % Normal 39.0-51.0 [facility] Comment on above: Order Comment: Speci men Type: BLOOD SPECIMENOrdering Facility: [facility] Address: [address] [place] [address] Performed By: #### 5 7021-8 ####[facility] [id number] [place] [address] OF [facility] Hemoglobin (Bld) [Mass/Vol] 15.1 g/dL Normal 13.0-17.0 [facility] Comment on above: Order Comment: Speci men Type: BLOOD SPECIMENOrdering Facility: [facility] Address: [address] [place] [address] Performed By: #### 5 7021-8 ####[facility] [id number] [place] [address] IMMATURE GRAN % 0.8 % Normal [facility] Comment on above: Order Comment: Speci men Type: BLOOD SPECIMENOrdering Facility: [facility] Address: [address] [place] [address] Performed By: #### 5 7021-8 ####[facility] [id number] [place] [address] IMMATURE GRAN ABS 0.06 k/uL Normal <0.10 [facility] Comment on above: Order Comment: Speci men Type: BLOOD SPECIMENOrdering Facility: [facility] Address: [address] [place] [address] Performed By: #### 5 7021-8 ####[facility] [id number] [place] [address] OF [place] Lymphocytes (Bld) [#/Vol] 2.22 10*3/uL Normal 1.00-4.00 [facility] Comment on above: Order Comment: Speci men Type: BLOOD SPECIMENOrdering Facility: [facility] Address: [address] [place] [address] Performed By: #### 5 7021-8 ####[facility] [id number] [address] Lymphocytes/100 WBC (Bld) 28.9 % Normal [facility] Comment on above: Order Comment: Speci men Type: BLOOD SPECIMENOrdering Facility: [facility] Address: [address] [place] [address] Performed By: #### 5 7021-8 ####[facility] [id number] [place] [address] [place] MCH (RBC) [Entitic mass] 30.1 pg Normal 26.0-34.0 [facility] Comment on above: Order Comment: Speci men Type: BLOOD SPECIMENOrdering Facility: [facility] Address: [address] [place] [address] Performed By: #### 5 7021-8 ####[facility] [id number] [place] [address] STATES OF [facility] MCHC (RBC) [Mass/Vol] 33.2 g/dL Normal 30.5-36.0 [facility] Comment on above: Order Comment: Speci men Type: BLOOD SPECIMENOrdering Facility: [facility] Address: [address] [place], [place] [address] Performed By: #### 5 7021-8 ####[facility] [id number] [place] [address] MCV (RBC) [Entitic vol] 90.6 fL Normal 80.0-100.0 [facility] Comment on above: Order Comment: Speci men Type: BLOOD SPECIMENOrdering Facility: [facility] Address: [address] [place], [place] [address] Performed By: #### 5 7021-8 ####[facility] [id number] [place] [address] [place] Monocytes (Bld) [#/Vol] 0.52 10*3/uL Normal <0.87 [facility] Comment on above: Order Comment: Speci men Type: BLOOD SPECIMENOrdering Facility: [facility] Address: [address] [place] [address] Performed By: #### 5 7021-8 ####[facility] [id number] [place] [address] OF [place] Monocytes/100 WBC (Bld) 6.8 % Normal [facility] Comment on above: Order Comment: Speci men Type: BLOOD SPECIMENOrdering Facility: [facility] Address: [address] [place], [place] [address] Performed By: #### 5 7021-8 ####[facility] [id number] [place] [address] [place] Neutrophils (Bld) [#/Vol] 4.79 10*3/uL Normal 1.45-7.50 [facility] Comment on above: Order Comment: Speci men Type: BLOOD SPECIMENOrdering Facility: [facility] Address: [address] [place], [place] [address] Performed By: #### 5 7021-8 ####[facility] [id number] [address] [place] Neutrophils/100 WBC (Bld) 62.3 % Normal [facility] Comment on above: Order Comment: Speci men Type: BLOOD SPECIMENOrdering Facility: [facility] Address: [address] [place], [place] [address] Performed By: #### 5 7021-8 ####[facility] [id number] [place] [address] [place] Nucleated RBC (Bld) [#/Vol] 10*3/uL Normal <0.01 [facility] Comment on above: Order Comment: Speci men Type: BLOOD SPECIMENOrdering Facility: [facility] Address: [address] [place] [address] Performed By: #### 5 7021-8 ####[facility] [id number] [place] [address] [place] Nucleated RBC/100 WBC (Bld) [Ratio] 0.0 /100 WBC Normal [facility] Comment on above: Order Comment: Speci men Type: BLOOD SPECIMENOrdering Facility: [facility] Address: [address] [place] [address] Performed By: #### 5 7021-8 ####[facility] [id number] [place] [address] [place] Platelet mean volume (Bld) [Entitic vol] 10.8 fL Normal 9.0-12.7 [facility] Comment on above: Order Comment: Speci men Type: BLOOD SPECIMENOrdering Facility: [facility] Address: [address] [place], [place] [address] Performed By: #### 5 7021-8 ####[facility] [id number] [place] [address] [place] Platelets (Bld) [#/Vol] 245 10*3/uL Normal 150-400 [facility] Comment on above: Order Comment: Speci men Type: BLOOD SPECIMENOrdering Facility: [facility] Address: [address] [place], [place] [address] Performed By: #### 5 7021-8 ####[facility] [id number] [place] [address] [place] RBC (Bld) [#/Vol] 5.02 10*6/uL Normal 4.20-6.00 [facility] Comment on above: Order Comment: Speci men Type: BLOOD SPECIMENOrdering Facility: [facility] Address: [address] [place] [address] Performed By: #### 5 7021-8 ####[facility] [id number] [address] [place] WBC (Bld) [#/Vol] 7.68 10*3/uL Normal 3.70-11.00 [facility] Comment on above: Order Comment: Speci men Type: BLOOD SPECIMENOrdering Facility: [facility] Address: [address] [place] [address] Performed By: #### 5 7021-8 ####[facility] [id number] [place] [address] [place] Abs Immature Gran 0.06 k/uL <0.10 k/uL [facility] Basophils (Bld) [#/Vol] 0.04 10*3/uL <0.11 k/uL [facility] Basophils/100 WBC (Bld) 0.5 % [facility] Differential cell count method Nom (Bld) Auto [facility] Eosinophils (Bld) [#/Vol] 0.05 10*3/uL <0.46 k/uL [facility] Eosinophils/100 WBC (Bld) 0.7 % [facility] Erythrocyte distribution width (RBC) [Ratio] 15.5 % High 11.5 - 15.0 % [facility] Hematocrit (Bld) [Volume fraction] 45.5 % 39.0 - 51.0 % [facility] Hemoglobin (Bld) [Mass/Vol] 15.1 g/dL 13.0 - 17.0 g/dL [facility] Immature Gran % 0.8 % [facility] Lymphocytes (Bld) [#/Vol] 2.22 10*3/uL 1.00 - 4.00 k/uL [facility] Lymphocytes/100 WBC (Bld) 28.9 % [facility] MCH (RBC) [Entitic mass] 30.1 pg 26.0 - 34.0 pg [facility] MCHC (RBC) [Mass/Vol] 33.2 g/dL 30.5 - 36.0 g/dL [facility] MCV (RBC) [Entitic vol] 90.6 fL 80.0 - 100.0 fL [facility] Monocytes (Bld) [#/Vol] 0.52 10*3/uL <0.87 k/uL [facility] Monocytes/100 WBC (Bld) 6.8 % [facility] Neutrophils (Bld) [#/Vol] 4.79 10*3/uL 1.45 - 7.50 k/uL [facility] Neutrophils/100 WBC (Bld) 62.3 % [facility] Nucleated RBC (Bld) [#/Vol] 10*3/uL <0.01 k/uL [facility] Nucleated RBC/100 WBC (Bld) [Ratio] 0.0 /100 WBC [facility] Platelet mean volume (Bld) [Entitic vol] 10.8 fL 9.0 - 12.7 fL [facility] Platelets (Bld) [#/Vol] 245 10*3/uL 150 - 400 k/uL [facility] RBC (Bld) [#/Vol] 5.02 10*6/uL 4.20 - 6.00 m/uL [facility] WBC (Bld) [#/Vol] 7.68 10*3/uL 3.70 - 11.00 k/uL [facility] CNNURSEon 07-21-2021 CNNURSE Normal [facility] CNPNon 07-21-2021 CNPN Normal [facility] CT CHEST W IVCONon 2 CT CHEST W IVCON Normal [facility] Comprehensive metabolic 2000 panelon 07-21-2021 Albumin [Mass/Vol] 4.0 g/dL Normal 3.9-4.9 [facility] Comment on above: Order Comment: Speci men Type: BLOOD SPECIMENOrdering Facility: [facility] Address: [address] [place], [place] [address] Performed By: #### 1 9123-9, 29794-4, 3084-1 ####[facility] [id number] [address] [place] [address] [place] ALP [Catalytic activity/Vol] 57 U/L Normal 38-113 [facility] Comment on above: Order Comment: Speci men Type: BLOOD SPECIMENOrdering Facility: [facility] Address: [address] [place], [place] [address] Performed By: #### 1 9123-9, 96889-0, 3083-1 ####[facility] [id number] [place] [address] [place] ALT [Catalytic activity/Vol] 26 U/L Normal 10-54 [facility] Comment on above: Order Comment: Speci men Type: BLOOD SPECIMENOrdering Facility: [facility] Address: [address] [place] [address] Performed By: #### 1 9123-9, 61426-6, 3083- ####[facility] [id number] [place] [address] [place] Anion gap [Moles/Vol] 10 mmol/L Normal 9-18 [facility] Comment on above: Order Comment: Speci men Type: BLOOD SPECIMENOrdering Facility: [facility] Address: [address] [place], [place] [address] Performed By: #### 1 9123-9, 99454-9, 3083- ####[facility] [id number] [place] [address] [place] AST [Catalytic activity/Vol] 18 U/L Normal 14-40 [facility] Comment on above: Order Comment: Speci men Type: BLOOD SPECIMENOrdering Facility: [facility] Address: [address] [place], [place] [address] Performed By: #### 1 9123-9, 47994-1, 308-1 ####[facility] [id number] [place] [id number] [place] Bilirubin [Mass/Vol] 0.5 mg/dL Normal 0.2-1.3 [facility] Comment on above: Order Comment: Speci men Type: BLOOD SPECIMENOrdering Facility: [facility] Address: [address] [place], [place] [address] Performed By: #### 1 9123-9, 06283-2, 3083- ####[facility] [id number] [place] [address] [place] Calcium [Mass/Vol] 9.4 mg/dL Normal 8.5-10.2 [facility] Comment on above: Order Comment: Speci men Type: BLOOD SPECIMENOrdering Facility: [facility] Address: [address] [place] [address] Performed By: #### 1 9123-9, 27493-4, 3083- ####[facility] [id number] [place] [address] [place] Chloride [Moles/Vol] 102 mmol/L Normal 97-105 [facility] Comment on above: Order Comment: Speci men Type: BLOOD SPECIMENOrdering Facility: [facility] Address: [address] [place], [place] [address] Performed By: #### 1 9123-9, 21388-8, 3083-03 ####[facility] [id number] [place] [address] [place] CO2 [Moles/Vol] 28 mmol/L Normal 22-30 [facility] Comment on above: Order Comment: Speci men Type: BLOOD SPECIMENOrdering Facility: [facility] Address: [address] [place], [place] [address] Performed By: #### 1 9123-9, 62635-5, 3083- ####[facility] [id number] [place] [address] [place] Creatinine [Mass/Vol] 1.12 mg/dL Normal 0.73-1.22 [facility] Comment on above: Order Comment: Speci men Type: BLOOD SPECIMENOrdering Facility: [facility] Address: [address] [id number] Performed By: #### 1 9123-9, 59867-4, 3084-1 ####[facility] [id number] [place] [address] [place] ESTIMATED GLOMERULAR FILTRATION RATE 77 mL/min/1.73m??? Normal >=60 [facility] Comment on above: Order Comment: Aaliyah gibson Type: BLOOD SPECIMENOrdering Facility: [facility] Address: [address] [place], [place] [phone] Result Comment: Laurita mated Glomerular Filtration Rate [...] actual GFR. Performed By: #### 1 9123-9, 77636-4, 3084-1 ####[facility] [id number] [place] [address] [place] Glucose [Mass/Vol] 114 mg/dL High 74-99 [facility] Comment on above: Order Comment: Aaliyah paige Type: BLOOD SPECIMENOrdering Facility: [facility] Address: [address] [place], [place] [address] Result Comment: The [place] Diabetes Association (ADA) provides guidance for cutoff [...] Standards of Medical Care in Diabetes 2016, [place] [employer]. Diabetes Care. 2016.39(Suppl 1). Performed By: #### 1 9123-9, 74943-3, 3084-1 ####[facility] [id number] [place] [address] [place] Potassium [Moles/Vol] 3.5 mmol/L Low 3.7-5.1 [facility] Comment on above: Order Comment: Speci men Type: BLOOD SPECIMENOrdering Facility: [facility] Address: [address] [place], [place] [phone] Performed By: #### 1 9123-9, 80990-5, 3084-1 ####[facility] [id number] [place] [address] [place] Protein [Mass/Vol] 6.8 g/dL Normal 6.3-8.0 [facility] Comment on above: Order Comment: Speci men Type: BLOOD SPECIMENOrdering Facility: [facility] Address: [address] [place], [place] [address] Performed By: #### 1 9123-9, 74655-8, 3084-1 ####[facility] [id number] [place] [address] [place] Sodium [Moles/Vol] 140 mmol/L Normal 136-144 [facility] Comment on above: Order Comment: Speci men Type: BLOOD SPECIMENOrdering Facility: [facility] Address: [address] [phone] Performed By: #### 1 9123-9, 26268-4, 3084-1 ####[facility] [id number] [place] [address] [place] Urea nitrogen [Mass/Vol] 20 mg/dL Normal 9-24 [facility] Comment on above: Order Comment: Speci men Type: BLOOD SPECIMENOrdering Facility: [facility] Address: [address] [place], [place] [phone] Performed By: #### 1 9123-9, 93805-5, 3084-1 ####[facility] [id number] [place] [address] [place] Albumin [Mass/Vol] 4.0 g/dL 3.9 - 4.9 g/dL [facility] ALP [Catalytic activity/Vol] 57 U/L 38 - 113 U/L [facility] ALT [Catalytic activity/Vol] 26 U/L 10 - 54 U/L [facility] Anion gap [Moles/Vol] 10 mmol/L 9 - 18 mmol/L [facility] AST [Catalytic activity/Vol] 18 U/L 14 - 40 U/L [facility] Bilirubin [Mass/Vol] 0.5 mg/dL 0.2 - 1 .3 mg/dL [facility] Calcium [Mass/Vol] 9.4 mg/dL 8.5 - 10. 2 mg/dL [facility] Chloride [Moles/Vol] 102 mmol/L 97 - 10 5 mmol/L [facility] CO2 [Moles/Vol] 28 mmol/L 22 - 30 mmol/L [facility] Creatinine [Mass/Vol] 1.12 mg/dL 0.73 - 1.22 mg/dL [facility] Estimated Glomerular Filtration Rate 77 mL/min/1.73m >=60 mL/min/1.7 3m [facility] Glucose [Mass/Vol] 114 mg/dL High 74 - 99 mg/dL [facility] Potassium [Moles/Vol] 3.5 mmol/L Low 3.7 - 5.1 mmol/L [facility] Protein [Mass/Vol] 6.8 g/dL 6.3 - 8.0 g/dL [facility] Sodium [Moles/Vol] 140 mmol/L 136 - 144 mmol/L [facility] Urea nitrogen [Mass/Vol] 20 mg/dL 9 - 24 mg/dL [facility] LD LACTATE DEHYDROon 022 LDH [Catalytic activity/Vol] 201 U/L 135 - 225 U/L [facility] LDH SerPl-cCncon 07-21-2021 LDH [Catalytic activity/Vol] 201 U/L Normal 135-225 [facility] Comment on above: Order Comment: Speci men Type: BLOOD SPECIMENOrdering Facility: [facility] Address: [address] [place] [address] Performed By: #### 2 532-0 ####[facility] [id number] [place] [address] [place] MAGNESIUM BLDon 07-21-2021 Magnesium [Mass/Vol] 2.1 mg/dL 1.7 - 2 .3 mg/dL [facility] MRI BRAIN WO/W IVCONon 07-21 MRI BRAIN WO/W IVCON Normal [facility] Magnesium SerPl-mCncon 07-21 Magnesium [Mass/Vol] 2.1 mg/dL Normal 1.7-2.3 [facility] Comment on above: Order Comment: Aaliyah gibson Type: BLOOD SPECIMENOrdering Facility: [facility] Address: [address] [place] [address] Performed By: #### 1 9123-9, 77389-6, 3084-1 ####[facility] [id number] [place] [address] [place] PHOSPHORUS INORGANICon 07-21 Phosphate [Mass/Vol] 3.9 mg/dL 2.7 - 4 .8 mg/dL [facility] PT panel Coag (PPP)on 2021 INR Coag (PPP) [Relative time] 1.0 {INR} Normal 0.9-1.3 [facility] Comment on above: Order Comment: Aaliyah gibson Type: BLOOD SPECIMENOrdering Facility: [facility] Address: [address] [place], [place] [phone] Result Comment: Constanza min K Antagonist (VKA) Therapeutic Range: INR 2 to 3 (Target INR of 2.5)Note: For patients treated with VKA drugs, such as warfarin, the [place] [employer] 2012 Guideline recommends [...] al. Chest 2012, 141:7S-47SNishnini RA, et al. [facility] 2017, 70: 252-289 Performed By: #### 3 4528-0, 72577-0 ####[facility] [id number] [place] [address] [place] PT Coag (PPP) [Time] 10.9 s Normal 9.7-13.0 [facility] Comment on above: Order Comment: Speci men Type: BLOOD SPECIMENOrdering Facility: [facility] Address: [address] [address] Performed By: #### 3 4528-0, 73495-3 ####[facility] [id number] [place] [address] [place] INR Coag (PPP) [Relative time] 1.0 {INR} 0.9 - 1.3 [facility] PT Coag (PPP) [Time] 10.9 s 9.7 - 1 3.0 sec [facility] Phosphate SerPl-mCncon 07-21 Phosphate [Mass/Vol] 3.9 mg/dL Normal 2.7-4.8 [facility] Comment on above: Order Comment: Speci men Type: BLOOD SPECIMENOrdering Facility: [facility] Address: [address] [place] [address] Performed By: #### 2 777-1 ####[facility] [id number] [place] [address] [place] T3 FREE BLDon 07-21-2021 Free T3 [Mass/Vol] 2.8 pg/mL Normal 2.3-4.1 [facility] Comment on above: Order Comment: Speci men Type: BLOOD SPECIMENOrdering Facility: [facility] Address: [address] [place] [address] Performed By: #### F T4, FREET3 ####[facility] [id number] [place] [address] [place] T4 FREE/FREE THYROXon 2021 Free T4 [Mass/Vol] 1.1 ng/dL Normal 0.9-1.7 [facility] Comment on above: Order Comment: Speci men Type: BLOOD SPECIMENOrdering Facility: [facility] Address: [address] [place] [address] Performed By: #### F T4, FREET3 ####[facility] [id number] [place] [address] [place] TSH BLDon 07-21-2021 TSH Qn 2.120 m[IU]/L 0.270 - 4.200 mIU/L [facility] TSH SerPl-aCncon 07-21-2021 TSH Qn 2.120 m[IU]/L Normal 0.270-4.20 0 [facility] Comment on above: Order Comment: Speci men Type: BLOOD SPECIMENOrdering Facility: [facility] Address: [address] [place] [address] Performed By: #### 3 016-3 ####[facility] [id number] [place] [address] [place] URIC ACID BLOODon 07-21-2021 Urate [Mass/Vol] 8.3 mg/dL High 4.0 - 8.1 mg/dL [facility] Urate SerPl-mCncon Urate [Mass/Vol] 8.3 mg/dL High 4.0-8.1 [facility] Comment on above: Order Comment: Speci men Type: BLOOD SPECIMENOrdering Facility: [facility] Address: [address] [place], [place] [phone] Performed By: #### 1 9123-9, 65717-6, 3084-1 ####[facility] [id number] [place] [address] [place] aPTT PPPon 07-21-2021 aPTT Coag (PPP) [Time] 29.1 s Normal 23.0-32.4 Cl [facility] Comment on above: Order Comment: Speci men Type: BLOOD SPECIMENOrdering Facility: [facility] Address: [address] [place] [address] Performed By: #### 3 4528-0, 26632-5 ####[facility] [id number] [address] OF [facility] CNOVSPon 07-15-2021 CNOVSP Normal [facility] MRI KIDNEY WO/W IVCONon 05-1 MRI KIDNEY WO/W IVCON Invalid Interpretation Code [facility] CNOVSPon 07-14-2021 CNOVSP Normal [facility] CNPNon 07-11-2021 CNPN Normal [facility] CNNURSEon 07-08-2021 CNNURSE Normal [facility] CNPNon 07-07-2021 CNPN Normal [facility] CNOVSPon 07-02-2021 CNOVSP Normal [facility] BRIEF OP NOTon 07-01-2021 BRIEF OP NOT Normal [facility] CT BIOPSY CHEST WALLon 07-01 CT BIOPSY CHEST WALL Normal [facility] HISTORY PHYSICALon HISTORY PHYSICAL Normal [facility] NURSING PROGon 07-01-2021 NURSING PROG Normal [facility] PT EDon 07-01-2021 PT ED Normal [facility] SURGICAL PATHOLOGYon 022 CASE REPORT Normal [facility] Comment on above: Order Comment: Speci men Type: TISSUE SPECIMENOrdering Facility: [facility] Address: [address] [place] [phone] Result Comment: Surg ical Pathology Report Case: [id number] Provider: Anne-Marie Chaparro MD Collected: 07/01/2021 08:31 AMOrdering Location: [place] [address] Received: 07/01/2021 01:44 PMPathologist: LAVINIA Hatchpecimen: SOFT TISSUE MASS BIOPSY, right chest wall mass - 4 passes, 4 cores Performed By: #### S ####[facility] LABCLIA [id number] [address] CLINICAL HISTORY right renal mass wit h right chest wall mass Normal [facility] Comment on above: Order Comment: Speci men Type: TISSUE SPECIMENOrdering Facility: [facility] Address: [address] [place] [address] Performed By: #### S ####[facility] LABCLIA [id number] [address] DIAGNOSIS COMMENT Normal [facility] Comment on above: Order Comment: Speci men Type: TISSUE SPECIMENOrdering Facility: [facility] Address: [address] [place] [address] Result Comment: Tumo r cells are strongly and diffusely positive for PAX-8, CAM 5.2 and CA9. The overall morphology and immunoprofile support the above diagnosis.Laboratory Developed Test (LDT) Disclaimer:Performance characteristics of immunohistochemical, immunofluorescent and chromogenic in-situ hybridization tests have been determined by the performing laboratory within [facility]???s [facility] [place] ([facility], [facility], [facility] or [facility]) in a manner consistent with CLIA requirements. One or more of these tests have not been cleared or approved by the FDA. [facility] is regulated under CLIA as qualified to perform high-complexity testing. These tests are used for clinical purposes. They should not be regarded as investigational or for research. Positive and negative controls stain appropriately. Performed By: #### S ####[facility] LABCL[facility] [id number] [address] FINAL DIAGNOSIS Normal [facility] Comment on above: Order Comment: Speci men Type: TISSUE SPECIMENOrdering Facility: [facility] Address: [address] [place] [address] Result Comment: A. S oft tissue, right chest wall mass, core needle biopsy:- Metastatic renal cell carcinoma, clear cell type. See comment.CHRISTIANO/TERA/hi 07/04/2021 Performed By: #### S ####[facility] LABCLIA [id number] [address] [place] FINAL PERFORMING LAB Normal [facility] Comment on above: Order Comment: Speci men Type: TISSUE SPECIMENOrdering Facility: [facility] Address: [address] [place] [address] Result Comment: Diag nostic interpretation performed at [facility], [address] [place] [address] CLIA# [id number] Director: Russ Madera M.D. Performed By: #### S ####[facility] LABCLIA [id number] [address] [place] GROSS DESCRIPTION Normal [facility] Comment on above: Order Comment: Speci men Type: TISSUE SPECIMENOrdering Facility: [facility] Address: [address] [place] [address] Result Comment: A. S OFT TISSUE MASS BIOPSY.Received in formalin are multiple segments of cylindrical tissue 1.0 x 0.2 x 0.1 cm, short-red and of a friable consistency. Totally submitted in one cassette.HMM July 01, 2021 5:56 PMGross examination performed at [facility], [address] [place] [address] Performed By: #### S ####[facility] LABCLIA [id number] [place] [address] [place] NM BONE WHOLE BODYon 022 NM BONE WHOLE BODY Normal [facility] PT panel Coag (PPP)on 2021 INR Coag (PPP) [Relative time] 1.0 {INR} Normal 0.9-1.3 [facility] Comment on above: Order Comment: Aaliyah gibson Type: BLOOD SPECIMENOrdering Facility: [facility] Address: [address] [phone] Result Comment: Constanza min K Antagonist (VKA) Therapeutic Range: INR 2 to 3 (Target INR of 2.5)Note: For patients treated with VKA drugs, such as warfarin, the [place] [employer] 2012 Guideline recommends [...] al. Chest 2012, 141:7S-47SNishimura RA, et al. [facility] 2017, 70: 252-289 Performed By: #### 3 4528-0 ####[facility] [id number] [place] [address] [place] PT Coag (PPP) [Time] 10.5 s Normal 9.7-13.0 [facility] Comment on above: Order Comment: Aaliyah gibson Type: BLOOD SPECIMENOrdering Facility: [facility] Address: [address] [place] [address] Performed By: #### 3 4528-0 ####[facility] [id number] [place] [address] [place] [address] ABD/PEL W IVCONon 022 CT ABD/PEL W IVCON Normal [facility] NURSING PROGon 06-25-2021 NURSING PROG Normal [facility] CNOVon 06-23-2021 CNOV Normal [facility] CNPNon 06-23-2021 CNPN Normal [facility] CNPTOUTREACHon 06-23-2021 CNPTOUTREACH Normal [facility] URINALYSIS, REFLEX MICROSCOP ICon 06-23-2021 Bilirubin Ql (U) Negative Negative [facility] Clarity (Unsp spec) Clear Clear [facility] Color (U) Yellow Yellow [facility] Glucose Test strip (U) [Mass/Vol] Negative Negative [facility] Hemoglobin Ql (U) Negative Negative [facility] Ketones Ql (U) Negative Negative [facility] Leukocyte esterase Test strip Ql (U) Negative Negative [facility] Nitrite Ql (U) Negative Negative [facility] pH (U) 6.5 [pH] 5.0 - 8.0 [facility] Protein (U) [Mass/Vol] Trace Abnormal Negative [facility] Specific gravity (U) [Rel density] 1.013 1.005 - 1.030 [facility] Urobilinogen Ql (U) Negative Negative [facility] Bilirubin Ql (U) Negative Normal Negative [facility] Comment on above: Order Comment: Speci men Type: URINE SPECIMENOrdering Facility: [facility] Address: [address] [place] [address] Performed By: #### L [id number] ####[facility] Q7CLIA [id number] [address] [place] Clarity (Unsp spec) Clear Normal Clear [facility] Comment on above: Order Comment: Speci men Type: URINE SPECIMENOrdering Facility: [facility] Address: [address] [place] [address] Performed By: #### L [id number] ####[facility] Q7CLIA [id number] [address] [place] Color (U) Yellow Normal Yellow [facility] Comment on above: Order Comment: Speci men Type: URINE SPECIMENOrdering Facility: [facility] Address: [address] [place] [address] Performed By: #### L [id number] ####[facility] Q7CLIA [id number] [address] OF [place] Glucose Test strip (U) [Mass/Vol] Negative Normal Negative [facility] Comment on above: Order Comment: Speci men Type: URINE SPECIMENOrdering Facility: [facility] Address: [address] [place], [place] [address] Performed By: #### L [id number] ####[facility] Q7CLIA [id number] [address] [place] Hemoglobin Ql (U) Negative Normal Negative [facility] Comment on above: Order Comment: Speci men Type: URINE SPECIMENOrdering Facility: [facility] Address: [address] [place], [place] [address] Performed By: #### L [id number] ####[facility] Q7CLIA [id number] [address] [place] Ketones Ql (U) Negative Normal Negative [facility] Comment on above: Order Comment: Speci men Type: URINE SPECIMENOrdering Facility: [facility] Address: [address] [place] [address] Performed By: #### L [id number] ####[facility] Q7CLIA [id number] [address] Leukocyte esterase Test strip Ql (U) Negative Normal Negative [facility] Comment on above: Order Comment: Speci men Type: URINE SPECIMENOrdering Facility: [facility] Address: [address] [place] [address] Performed By: #### L [id number] ####[facility] Q7CLIA [id number] [place] [address] [place] Nitrite Ql (U) Negative Normal Negative [facility] Comment on above: Order Comment: Speci men Type: URINE SPECIMENOrdering Facility: [facility] Address: [address] [place], [place] [phone] Performed By: #### L [id number] ####[facility] Q7CLIA [id number] [address] [place] pH (U) 6.5 [pH] Normal 5.0-8.0 [facility] Comment on above: Order Comment: Speci men Type: URINE SPECIMENOrdering Facility: [facility] Address: [address] [place] [address] Performed By: #### L [id number] ####[facility] Q7CLIA [id number] [place] [address] [place] Protein (U) [Mass/Vol] Trace Abnormal Negative [facility] Comment on above: Order Comment: Speci men Type: URINE SPECIMENOrdering Facility: [facility] Address: [address] [place] [address] Performed By: #### L [id number] ####[facility] Q7CLIA [id number] [address] Specific gravity (U) [Rel density] 1.013 Normal 1.005-1.03 0 [facility] Comment on above: Order Comment: Speci men Type: URINE SPECIMENOrdering Facility: [facility] Address: [address] [place] [address] Performed By: #### L [id number] ####[facility] Q7CLIA [id number] [address] Urobilinogen Ql (U) Negative Normal Negative [facility] Comment on above: Order Comment: Speci men Type: URINE SPECIMENOrdering Facility: [facility] Address: [address] [place] [address] Performed By: #### L [id number] ####[facility] Q7CLIA [id number] [place] [address] [place] CBC W Auto Differential pane l (Bld)on 06-20-2021 Basophils (Bld) [#/Vol] 0.03 10*3/uL Normal <0.11 [facility] Comment on above: Order Comment: Speci men Type: BLOOD SPECIMENOrdering Facility: [facility] Address: [address] [place], [place] [address] Performed By: #### 5 7021-8 ####[facility] LABCLIA [id number] [facility] [place] [address] [place] Basophils/100 WBC (Bld) 0.4 % Normal [facility] Comment on above: Order Comment: Speci men Type: BLOOD SPECIMENOrdering Facility: [facility] Address: [address] [place], [place] [address] Performed By: #### 5 7021-8 ####[facility] LABCLIA [id number] [place] [address] [place] Differential cell count method Nom (Bld) Auto Normal [facility] Comment on above: Order Comment: Speci men Type: BLOOD SPECIMENOrdering Facility: [facility] Address: [address] [place], [place] [address] Performed By: #### 5 7021-8 ####[facility] LABCLIA [id number] [place] [address] [place] Eosinophils (Bld) [#/Vol] 10*3/uL Normal <0.46 [facility] Comment on above: Order Comment: Speci men Type: BLOOD SPECIMENOrdering Facility: [facility] Address: [address] [place], [place] [address] Performed By: #### 5 7021-8 ####[facility] LABCLIA [id number] [place] [address] [place] Eosinophils/100 WBC (Bld) 0.3 % Normal [facility] Comment on above: Order Comment: Speci men Type: BLOOD SPECIMENOrdering Facility: [facility] Address: [address] [place], [place] [address] Performed By: #### 5 7021-8 ####[facility] [id number] [place] [address] [place] Erythrocyte distribution width (RBC) [Ratio] 14.8 % Normal 11.5-15.0 [facility] Comment on above: Order Comment: Speci men Type: BLOOD SPECIMENOrdering Facility: [facility] Address: [address] [place], [place] [address] Performed By: #### 5 7021-8 ####[facility] [id number] [place] [address] [place] Hematocrit (Bld) [Volume fraction] 48.7 % Normal 39.0-51.0 [facility] Comment on above: Order Comment: Speci men Type: BLOOD SPECIMENOrdering Facility: [facility] Address: [address] [place], [place] [address] Performed By: #### 5 7021-8 ####[facility] [id number] [place] [address] [place] Hemoglobin (Bld) [Mass/Vol] 15.6 g/dL Normal 13.0-17.0 [facility] Comment on above: Order Comment: Speci men Type: BLOOD SPECIMENOrdering Facility: [facility] Address: [address] [place], [place] [address] Performed By: #### 5 7021-8 ####[facility] LABIA [id number] [address] [place] IMMATURE GRAN % 0.3 % Normal [facility] Comment on above: Order Comment: Speci men Type: BLOOD SPECIMENOrdering Facility: [facility] Address: [address] [place], [place] [address] Performed By: #### 5 7021-8 ####[facility] [id number] [place] [address] [place] IMMATURE GRAN ABS <0.03 Normal <0.10 [facility] Comment on above: Order Comment: Speci men Type: BLOOD SPECIMENOrdering Facility: [facility] Address: [address] [place] [address] Performed By: #### 5 7021-8 ####[facility] LABCLIA [id number] [place] [address] [place] Lymphocytes (Bld) [#/Vol] 1.78 10*3/uL Normal 1.00-4.00 [facility] Comment on above: Order Comment: Speci men Type: BLOOD SPECIMENOrdering Facility: [facility] Address: [address] [place] [address] Performed By: #### 5 7021-8 ####[facility] LABCLIA [id number] [address] STATES OF [facility] [facility] Lymphocytes/100 WBC (Bld) 26.6 % Normal [facility] Comment on above: Order Comment: Speci men Type: BLOOD SPECIMENOrdering Facility: [facility] Address: [address] [place] [address] Performed By: #### 5 7021-8 ####[facility] LABCLIA [id number] [address] [place] MCH (RBC) [Entitic mass] 29.4 pg Normal 26.0-34.0 [facility] Comment on above: Order Comment: Speci men Type: BLOOD SPECIMENOrdering Facility: [facility] Address: [address] [place], [place] [address] Performed By: #### 5 7021-8 ####[facility] LABCLIA [id number] [place] [address] [place] MCHC (RBC) [Mass/Vol] 32.0 g/dL Normal 30.5-36.0 [facility] Comment on above: Order Comment: Speci men Type: BLOOD SPECIMENOrdering Facility: [facility] Address: [address] [place], [place] [address] Performed By: #### 5 7021-8 ####[facility] LABCLIA [id number] [address] MCV (RBC) [Entitic vol] 91.9 fL Normal 80.0-100.0 C [facility] Comment on above: Order Comment: Speci men Type: BLOOD SPECIMENOrdering Facility: [facility] Address: [address] [place], [place] [address] Performed By: #### 5 7021-8 ####[facility] LABIA [id number] [place] [address] [place] Monocytes (Bld) [#/Vol] 0.51 10*3/uL Normal <0.87 [facility] Comment on above: Order Comment: Speci men Type: BLOOD SPECIMENOrdering Facility: [facility] Address: [address] [place] [address] Performed By: #### 5 7021-8 ####[facility] LABCLIA [id number] [address] [place] Monocytes/100 WBC (Bld) 7.6 % Normal C [facility] Comment on above: Order Comment: Speci men Type: BLOOD SPECIMENOrdering Facility: [facility] Address: [address] [place], [place] [address] Performed By: #### 5 7021-8 ####[facility] LABCLIA [id number] [place] [address] [place] Neutrophils (Bld) [#/Vol] 4.34 10*3/uL Normal 1.45-7.50 [facility] Comment on above: Order Comment: Speci men Type: BLOOD SPECIMENOrdering Facility: [facility] Address: [address] [place], [place] [address] Performed By: #### 5 7021-8 ####[facility] LABCLIA [id number] [place] [address] [place] Neutrophils/100 WBC (Bld) 64.8 % Normal [facility] Comment on above: Order Comment: Speci men Type: BLOOD SPECIMENOrdering Facility: [facility] Address: [address] [place], [place] [address] Performed By: #### 5 7021-8 ####[facility] LABCLIA [id number] [place] [address] [place] Nucleated RBC (Bld) [#/Vol] 10*3/uL Normal <0.01 [facility] Comment on above: Order Comment: Speci men Type: BLOOD SPECIMENOrdering Facility: [facility] Address: [address] [place], [place] [address] Performed By: #### 5 7021-8 ####[facility] LABIA [id number] [place] [address] [place] Nucleated RBC/100 WBC (Bld) [Ratio] 0.0 /100 WBC Normal [facility] Comment on above: Order Comment: Speci men Type: BLOOD SPECIMENOrdering Facility: [facility] Address: [address] [place], [place] [address] Performed By: #### 5 7021-8 ####[facility] LABIA [id number] [place] [address] [place] Platelet mean volume (Bld) [Entitic vol] 11.0 fL Normal 9.0-12.7 [facility] Comment on above: Order Comment: Speci men Type: BLOOD SPECIMENOrdering Facility: [facility] Address: [address] [place], [place] [address] Performed By: #### 5 7021-8 ####[facility] LABCLIA [id number] [place] [address] [place] Platelets (Bld) [#/Vol] 268 10*3/uL Normal 150-400 [facility] Comment on above: Order Comment: Speci men Type: BLOOD SPECIMENOrdering Facility: [facility] Address: [address] [place] [address] Performed By: #### 5 7021-8 ####[facility] LABCLIA [id number] [place] [address] [place] RBC (Bld) [#/Vol] 5.30 10*6/uL Normal 4.20-6.00 [facility] Comment on above: Order Comment: Speci men Type: BLOOD SPECIMENOrdering Facility: [facility] Address: [address] [place] [address] Performed By: #### 5 7021-8 ####[facility] LABCLIA [id number] [place] [address] [place] WBC (Bld) [#/Vol] 6.70 10*3/uL Normal 3.70-11.00 [facility] Comment on above: Order Comment: Speci men Type: BLOOD SPECIMENOrdering Facility: [facility] Address: [address] [place], [place] [address] Performed By: #### 5 7021-8 ####[facility] LABCLIA [id number] [place] [address] [place] CNOVon 06-20-2021 CNOV Normal [facility] Comprehensive metabolic 2000 panelon 06-20-2021 Albumin [Mass/Vol] 4.2 g/dL Normal 3.9-4.9 [facility] Comment on above: Order Comment: Speci men Type: BLOOD SPECIMENOrdering Facility: [facility] Address: [address] [place] [address] Performed By: #### 2 4323-8 ####[facility] LABCLIA [id number] [place] [address] [place] ALP [Catalytic activity/Vol] 52 U/L Normal 38-113 [facility] Comment on above: Order Comment: Speci men Type: BLOOD SPECIMENOrdering Facility: [facility] Address: [address] [place], [place] [address] Performed By: #### 2 4323-8 ####[facility] LABCLIA [id number] [address] [place] ALT [Catalytic activity/Vol] 17 U/L Normal 10-54 [facility] Comment on above: Order Comment: Speci men Type: BLOOD SPECIMENOrdering Facility: [facility] Address: [address] [place], [place] [address] Performed By: #### 2 4323-8 ####[facility] LABCLIA [id number] [place] [address] [place] Anion gap [Moles/Vol] 12 mmol/L Normal 9-18 [facility] Comment on above: Order Comment: Speci men Type: BLOOD SPECIMENOrdering Facility: [facility] Address: [address] [place], [place] [address] Performed By: #### 2 4323-8 ####[facility] LABCLIA [id number] [address] [place] OF [facility] AST [Catalytic activity/Vol] 18 U/L Normal 14-40 [facility] Comment on above: Order Comment: Speci men Type: BLOOD SPECIMENOrdering Facility: [facility] Address: [address] [place] [address] Performed By: #### 2 4323-8 ####[facility] LABCLIA [id number] [place] [address] [place] Bilirubin [Mass/Vol] 0.5 mg/dL Normal 0.2-1.3 [facility] Comment on above: Order Comment: Speci men Type: BLOOD SPECIMENOrdering Facility: [facility] Address: [address] [place] [address] Performed By: #### 2 4323-8 ####[facility] LABCLIA [id number] [address] [address] [place] Calcium [Mass/Vol] 9.8 mg/dL Normal 8.5-10.2 [facility] Comment on above: Order Comment: Speci men Type: BLOOD SPECIMENOrdering Facility: [facility] Address: [address] [place], [place] [address] Performed By: #### 2 4323-8 ####[facility] LABCLIA [id number] [place] [address] [place] Chloride [Moles/Vol] 101 mmol/L Normal 97-105 [facility] Comment on above: Order Comment: Speci men Type: BLOOD SPECIMENOrdering Facility: [facility] Address: [address] [place], [place] [address] Performed By: #### 2 4323-8 ####[facility] LABCLIA [id number] [place] [address] [place] CO2 [Moles/Vol] 28 mmol/L Normal 22-30 [facility] Comment on above: Order Comment: Speci men Type: BLOOD SPECIMENOrdering Facility: [facility] Address: [address] [place] [address] Performed By: #### 2 4323-8 ####[facility] LABCLIA [id number] [place] [address] [place] Creatinine [Mass/Vol] 1.12 mg/dL Normal 0.73-1.22 [facility] Comment on above: Order Comment: Speci men Type: BLOOD SPECIMENOrdering Facility: [facility] Address: [address] [place] [address] Performed By: #### 2 4323-8 ####[facility] LABCLIA [id number] [place] [id number] [place] ESTIMATED GLOMERULAR FILTRATION RATE 77 mL/min/1.73m??? Normal >=60 [facility] Comment on above: Order Comment: Aaliyah gibson Type: BLOOD SPECIMENOrdering Facility: [facility] Address: [address] [place] [id number] Result Comment: Laurita mated Glomerular Filtration Rate [...] actual GFR. Performed By: #### 2 4323-8 ####[facility] LABIA [id number] [place] [address] [place] Glucose [Mass/Vol] 87 mg/dL Normal 74-99 [facility] Comment on above: Order Comment: Aaliyah gibson Type: BLOOD SPECIMENOrdering Facility: [facility] Address: [address] [place] [address] Result Comment: The [place] Diabetes Association (ADA) provides guidance for cutoff [...] Standards of Medical Care in Diabetes 2016, [place] [employer] Association. Diabetes Care. 2016.39(Suppl 1). Performed By: #### 2 4323-8 ####[facility] [id number] [place] [address] [place] Potassium [Moles/Vol] 3.8 mmol/L Normal 3.7-5.1 [facility] Comment on above: Order Comment: Aaliyah gibson Type: BLOOD SPECIMENOrdering Facility: [facility] Address: [address] [place] [address] Performed By: #### 2 4323-8 ####[facility] LABCLIA [id number] [place] [address] [place] Protein [Mass/Vol] 7.3 g/dL Normal 6.3-8.0 [facility] Comment on above: Order Comment: Speci men Type: BLOOD SPECIMENOrdering Facility: [facility] Address: [address] [place] [address] Performed By: #### 2 4323-8 ####[facility] LABIA [id number] [place] [address] [place] Sodium [Moles/Vol] 141 mmol/L Normal 136-144 [facility] Comment on above: Order Comment: Speci men Type: BLOOD SPECIMENOrdering Facility: [facility] Address: [address] [place] [address] Performed By: #### 2 4323-8 ####[facility] LABIA [id number] [place] [address] [place] Urea nitrogen [Mass/Vol] 12 mg/dL Normal 9-24 [facility] Comment on above: Order Comment: Speci men Type: BLOOD SPECIMENOrdering Facility: [facility] Address: [address] [place] [address] Performed By: #### 2 4323-8 ####[facility] LABIA [id number] [place] [address] [place] ALC ETHANOLon 06-19-2021 ALC ETHANOL < 3.0 Normal <10.0 [facility] Comment on above: Order Comment: CONSE RVATION Result Comment: UNCO NFIRMED Toxicology results. For MEDICAL purposes only. Performed By: #### L 500.14236, L500.68522, L500.61908 ####Test performed at: [place] [address] ALT SerPl w P-5'-P-cCncOrder ed By: Siri Harris on 06-19-2021 ALT With P-5'-P [Catalytic activity/Vol] 23 U/L 13-61 [facility] AST SerPl w P-5'-P-cCncOrder ed By: Siri Harris on 06-19-2021 AST With P-5'-P [Catalytic activity/Vol] 16 U/L 15-37 [facility] Albumin SerPl-mCncOrdered By : Siri Harris on 06-19-2021 Albumin [Mass/Vol] 3.4 g/dL 3.4-5.0 [facility] BUN SerPl-mCncOrdered By: Natty Harris on 06-19-2021 Urea nitrogen [Mass/Vol] 16 mg/dL 7-18 [facility] Basophils Auto (Bld) [#/Vol] Ordered By: Siri Harris on 06-19-2021 Basophils (Bld) [#/Vol] 0.0 10*3/uL 0.0-0.2 [facility] Basophils/100 WBC Auto (Bld) Ordered By: Siri Harris on 06-19-2021 Basophils/100 WBC (Bld) 0.5 % S [facility] CBC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 [facility] ENDOSCOPY PRE PROCEDURE CALL RED [...] Pt Surgery Script: Ronnelllo. I'm calling from [facility] endoscopy to provide you with the information [...] confirm the name and relationship of your inventory associate and driver. primo yanez What is the best number for your inventory associate and driver to be reached at tomorrow for updates?[phone] So you are prepared and comfortable on [...] you out. Are you familiar with where [facility] is located?yes Address [facility] Patient instructed to enter through the [facility] entrance off [address] at the [address] through the revolving doors and check in at the main desk with your inventory associate and driver's license and insurance card. yes If anesthesia or sedation is being given: Patient instructed you must have an adult inventory associate and driver because you will not be able to work or drive for the rest of the day after your test.yes Patient instructed not bring any valuables, jewelry, or li and wear comfortable clothing. Do not wear makeup, lotion, or finger urdu. yes Patient instructed: Do not eat or [...] given Any barriers to Patient learning (confusion? Hot Roll Laminator needed?): Patient/Patient Access Specialist responded appropriately on phone. Type of instruction given: Ver[facility] by telephone contact. [facility] Telephone (SPDIG) ----- YEFRI YANEZ ([id number]) 1965 M Date Time Provider Department 11/09/19 [facility] your [facility] today, we recorded the [...] Encounter Status:Closed by MADYSON SOTO on 11/09/19 [facility] HOSPon 11-07-2019 HOSP Patient:Fermin [...] questions develop. Instructions s Madyson Soto RN [facility] No Panel Information SARS-CoV-2 & FLU Antigen (Rapid) [facility] Work Phone: Vital Signs Date Time Vital Sign Value Performing Clinician Cristopher meza 10-02-2024 14:41-0400 Body height 180.[address] Daksha Turner MD Work Phone: [facility] 10-02-2024 14:41-0400 Body mass index (BMI) [Ratio] 36.1 kg/m2 Dr. Daksha Turner MD Work Phone: 8(739)527-779543 [place] [address] 10-02-2024 14:41-0400 Body weight 117.[address] Daksha Turner MD Work Phone: 5(087)028-670996 [place] [address] 10-02-2024 14:41-0400 Diastolic blood pressure 50 mm[Hg] Dr. Daksha Turner MD Work Phone: 9(412)564-784696 [place] [address] 10-02-2024 14:41-0400 Heart rate 76 /min Dr. Daksha Turenr MD Work Phone: 5(174)650-905996 [place] [address] 10-02-2024 14:41-0400 Respiratory rate 16 /min Dr. Daksha Turner MD Work Phone: 6(839)867-953396 [place] [address] 10-02-2024 14:41-0400 SaO2% (BldA) [Mass fraction] 99 % Dr. Daksha Turner MD Work Phone: 9(788)904-273196 [place] [address] 10-02-2024 14:41-0400 Systolic blood pressure 80 mm[Hg] Dr. Daksha Turner MD Work Phone: 3(547)820-439096 [place] [address] 08-14-2024 15:00-0400 Body weight 118.[address] Daksha Turner MD Work Phone: 5(134)110-036843 [place] [address] 08-14-2024 13:06-0400 Body height 180.[address] Daksha Turner MD Work Phone: 9(416)425-718296 [place] [address] 08-14-2024 06:47-0400 Body mass index (BMI) [Ratio] 35.9 kg/m2 Dr. Daksha Turner MD Work Phone: 9(225)283-090996 [place] [address] 08-14-2024 06:47-0400 Body weight 117.[address] Daksha Turner MD Work Phone: 1(651)623-875296 [place] [address] 08-14-2024 06:47-0400 Diastolic blood pressure 76 mm[Hg] Dr. Daksha Turner MD Work Phone: [facility] 08-14-2024 06:47-0400 Heart rate 84 /min Dr. Daksha Turner MD Work Phone: [facility] 08-14-2024 06:47-0400 Respiratory rate 18 /min Dr. Daksha Turner MD Work Phone: [facility] 08-14-2024 06:47-0400 SaO2% (BldA) [Mass fraction] 97 % Dr. Daksha Turner MD Work Phone: 0(510)696-058443 [place] [address] 08-14-2024 06:47-0400 Systolic blood pressure 127 mm[Hg] Dr. Daksha Turner MD Work Phone: [facility] 06-20-2024 13:40-0400 Body height 180.[address] Daksha Turner MD Work Phone: 6(915)746-104743 [place] [address] 06-20-2024 13:38-0400 Body mass index (BMI) [Ratio] 36.8 kg/m2 Dr. Daksha Turner MD Work Phone: [facility] 06-20-2024 13:38-0400 Body temperature 98.1 [degF] Dr. Daksha Turner MD Work Phone: [facility] 06-20-2024 13:38-0400 Body weight 119.[address] Daksha Turner MD Work Phone: [facility] 06-20-2024 13:38-0400 Diastolic blood pressure 79 mm[Hg] Dr. Daksha Turner MD Work Phone: [facility] 06-20-2024 13:38-0400 Heart rate 99 /min Dr. Daksha Turner MD Work Phone: [facility] 06-20-2024 13:38-0400 Respiratory rate 18 /min Dr. Daksha Turner MD Work Phone: 0(822)655-599043 [place] [address] 06-20-2024 13:38-0400 SaO2% (BldA) [Mass fraction] 95 % Dr. Daksha Turner MD Work Phone: 9(723)319-521443 [place] [address] 06-20-2024 13:38-0400 Systolic blood pressure 106 mm[Hg] Dr. Daksha Turner MD Work Phone: 4(239)169-146396 [place] [address] 06-05-2024 13:45-0400 Body height 180.[address] Daksha Turner MD Work Phone: 2(952)139-831296 [place] [address] 06-05-2024 13:45-0400 Body weight 122.[address] Daksha Turner MD Work Phone: 3(853)691-186296 [place] [address] 04-12-2023 15:35-0500 Body height 180.[address] Jose Ramon Turner Work Phone: 1(599)504-031896 [place] [address] 04-12-2023 15:35-0500 Body mass index (BMI) [Ratio] 38.5 kg/m2 Dr. Jose Ramon Turner Work Phone: 0(959)566-065896 [place] [address] 04-12-2023 15:35-0500 Body temperature 98.2 [degF] Dr. Jose Ramon Turner Work Phone: 9(314)884-526696 [place] [address] 04-12-2023 15:35-0500 Body weight 125.[address] Jose Ramon Turner Work Phone: 4(342)213-806796 [place] [address] 04-12-2023 15:35-0500 Diastolic blood pressure 66 mm[Hg] Dr. Jose Ramon Turner Work Phone: 7(652)629-728396 [place] [address] 04-12-2023 15:35-0500 Heart rate 80 /min Dr. Jose Ramon Turner Work Phone: 2(335)985-087896 [place] [address] 04-12-2023 15:35-0500 Respiratory rate 18 /min Dr. Jose Ramon Turner Work Phone: 7(343)519-774196 [place] [address] 04-12-2023 15:35-0500 SaO2% (BldA) [Mass fraction] 95 % Dr. Jose Ramon Turner Work Phone: 3(179)888-894843 [place] [address] 04-12-2023 15:35-0500 Systolic blood pressure 104 mm[Hg] Dr. Jose Ramon Turner Work Phone: 0(562)113-528596 [place] [address] 12-17-2022 09:20-0400 Inhaled oxygen flow rate 2 L/min Dr. Jose Ramon Turner Work Phone: 3(808)864-161696 [place] [address] 12-17-2022 09:18-0400 SaO2% (BldA) [Mass fraction] 97 % Dr. Jose Ramon Turner Work Phone: 0(699)000-161696 [place] [address] 12-17-2022 09:00-0400 Body temperature 98 [degF] Dr. Jose Ramon Turner Work Phone: 0(655)693-249296 [place] [address] 12-17-2022 09:00-0400 Diastolic blood pressure 87 mm[Hg] Dr. Jose Ramon Turner Work Phone: 5(927)845-416896 [place] [address] 12-17-2022 09:00-0400 Heart rate 77 /min Dr. Jose Ramon Turner Work Phone: 3(931)799-123396 [place] [address] 12-17-2022 09:00-0400 Respiratory rate 16 /min Dr. Jose Ramon Turner Work Phone: 6(950)918-672596 [place] [address] 12-17-2022 09:00-0400 Systolic blood pressure 125 mm[Hg] Dr. Jose Ramon Turner Work Phone: 5(145)532-080096 [place] [address] 12-17-2022 04:00-0400 Body mass index (BMI) [Ratio] 36.1 kg/m2 Dr. Jose Ramon Turner Work Phone: 4(975)899-376696 [place] [address] 12-17-2022 04:00-0400 Body weight 117.[address] Jose Ramon Turner Work Phone: 1(532)699-502596 [place] [address] 12-16-2022 15:19-0400 Body height 180.[address] Jose Ramon Turner Work Phone: 4(548)193-278796 [place] [address] 09-29-2022 13:43-0400 Body mass index (BMI) [Ratio] 9.3 kg/m2 Dr. Jose Ramon Turner Work Phone: [facility] 09-29-2022 13:43-0400 Body weight 30.[address] Jose Ramon Turner Work Phone: [facility] 09-29-2022 13:43-0400 Diastolic blood pressure 81 mm[Hg] Dr. Jose Ramon Turner Work Phone: [facility] 09-29-2022 13:43-0400 Heart rate 84 /min Dr. Jose Ramon Turner Work Phone: [facility] 09-29-2022 13:43-0400 Respiratory rate 20 /min Dr. Jose Ramon Turner Work Phone: 4(915)548-893035 [address] 09-29-2022 13:43-0400 SaO2% (BldA) [Mass fraction] 97 % Dr. Jose Ramon Turner Work Phone: 0(586)535-749243 [place] [address] 09-29-2022 13:43-0400 Systolic blood pressure 110 mm[Hg] Dr. Jose Ramon Turner Work Phone: 4(641)088-174035 [address] 09-03-2022 13:24-0400 Body height 180.[address] Jose Ramon Turner Work Phone: 6(565)280-839543 [place] [address] 09-03-2022 13:24-0400 Body mass index (BMI) [Ratio] 37.8 kg/m2 Dr. Jose Ramon Turner Work Phone: 4(067)567-383343 [place] [address] 09-03-2022 13:24-0400 Body temperature 97.2 [degF] Dr. Jose Ramon Turner Work Phone: 9(150)178-347243 [place] [address] 09-03-2022 13:24-0400 Body weight 122.[address] Jose Ramon Turner Work Phone: [facility] 09-03-2022 13:24-0400 Diastolic blood pressure 89 mm[Hg] Dr. Jose Ramon Turner Work Phone: [facility] 09-03-2022 13:24-0400 Heart rate 72 /min Dr. Jose Ramon Turner Work Phone: [facility] 09-03-2022 13:24-0400 Respiratory rate 16 /min Dr. Jose Ramon Turner Work Phone: [facility] 09-03-2022 13:24-0400 SaO2% (BldA) [Mass fraction] 97 % Dr. Jose Ramon Turner Work Phone: [facility] 09-03-2022 13:24-0400 Systolic blood pressure 132 mm[Hg] Dr. Jose Ramon Turner Work Phone: [facility] 06-29-2022 12:20-0400 Body temperature 97.5 [degF] Dr. Jose Ramon Turner Work Phone: 8(551)[phone] [place] [address] 06-29-2022 12:20-0400 Diastolic blood pressure 92 mm[Hg] Dr. Jose Ramon Turner Work Phone: [facility] 06-29-2022 12:20-0400 Heart rate 68 /min Dr. Jose Ramon Turner Work Phone: 6(642)[phone] [place] [address] 06-29-2022 12:20-0400 Respiratory rate 18 /min Dr. Jose Ramon Turner Work Phone: [facility] 06-29-2022 12:20-0400 SaO2% (BldA) [Mass fraction] 93 % Dr. Jose Ramon Turner Work Phone: [facility] 06-29-2022 12:20-0400 Systolic blood pressure 126 mm[Hg] Dr. Jose Ramon Turner Work Phone: 2(418)[phone] [address] 06-29-2022 09:28-0400 Inhaled oxygen flow rate 0 L/min Dr. Jose Ramon Turner Work Phone: [facility] 06-29-2022 04:35-0400 Body mass index (BMI) [Ratio] 38.2 kg/m2 Dr. Jose Ramon Turner Work Phone: [facility] 06-29-2022 04:35-0400 Body weight 124.[address] Jose Ramon Turner Work Phone: [facility] 06-28-2022 11:54-0400 Body height 180.[address] Jose Ramon Turner Work Phone: [facility] 06-28-2022 00:14-0400 Body temperature 98.7 [degF] Dr. Jose Ramon Turner Work Phone: [facility] 06-28-2022 00:14-0400 Diastolic blood pressure 89 mm[Hg] Dr. Jose Ramon Turner Work Phone: [facility] 06-28-2022 00:14-0400 Heart rate 98 /min Dr. Jose Ramon Turner Work Phone: [facility] 06-28-2022 00:14-0400 Respiratory rate 24 /min Dr. Jose Ramon Turner Work Phone: [facility] 06-28-2022 00:14-0400 SaO2% (BldA) [Mass fraction] 97 % Dr. Jose Ramon Turner Work Phone: [facility] 06-28-2022 00:14-0400 Systolic blood pressure 139 mm[Hg] Dr. Jose Ramon Turner Work Phone: [facility] 06-27-2022 23:04-0400 Body height 180.[address] Jose Ramon Turner Work Phone: [facility] 06-27-2022 23:04-0400 Body mass index (BMI) [Ratio] 38.8 kg/m2 Dr. Jose Ramon Turner Work Phone: [facility] 06-27-2022 23:04-0400 Body weight 126.[address] Jose Ramon Turner Work Phone: 7(266)[phone] [address] 05-27-2022 12:50-0400 Body mass index (BMI) [Ratio] 37.8 kg/m2 Dr. Jose Ramon Turner Work Phone: [facility] 05-27-2022 12:50-0400 Body temperature 98.6 [degF] Dr. Jose Ramon Turner Work Phone: [facility] 05-27-2022 12:50-0400 Body weight 123.[address] Jose Ramon Turner Work Phone: [facility] 05-27-2022 12:50-0400 Diastolic blood pressure 83 mm[Hg] Dr. Jose Ramon Turner Work Phone: [facility] 05-27-2022 12:50-0400 Heart rate 54 /min Dr. Jose Ramon Turner Work Phone: [facility] 05-27-2022 12:50-0400 Respiratory rate 17 /min Dr. Jose Ramon Turner Work Phone: [facility] 05-27-2022 12:50-0400 Systolic blood pressure 117 mm[Hg] Dr. Jose Ramon Turner Work Phone: [facility] 05-27-2022 10:46-0400 Body weight 122.[address] Jose Ramon Turner Work Phone: [facility] 05-27-2022 10:46-0400 Diastolic blood pressure 83 mm[Hg] Dr. Jose Ramon Turner Work Phone: [facility] 05-27-2022 10:46-0400 Heart rate 77 /min Dr. Jose Ramon Turner Work Phone: [facility] 05-27-2022 10:46-0400 Respiratory rate 24 /min Dr. Jose Ramon Turner Work Phone: [facility] 05-27-2022 10:46-0400 Systolic blood pressure 117 mm[Hg] Dr. Jose Ramon Turner Work Phone: [facility] 05-20-2022 08:50-0400 Body temperature 97.6 [degF] Dr. Jose Ramon Turner Work Phone: [facility] 05-20-2022 08:50-0400 Diastolic blood pressure 86 mm[Hg] Dr. Jose Ramon Turner Work Phone: [facility] 05-20-2022 08:50-0400 Heart rate 78 /min Dr. Jose Ramon Turner Work Phone: [facility] 05-20-2022 08:50-0400 Respiratory rate 18 /min Dr. Jose Ramon Turner Work Phone: [facility] 05-20-2022 08:50-0400 SaO2% (BldA) [Mass fraction] 96 % Dr. Jose Ramon Turner Work Phone: [facility] 05-20-2022 08:50-0400 Systolic blood pressure 133 mm[Hg] Dr. Jose Ramon Turner Work Phone: 6(939)[phone] [place] [address] 05-20-2022 07:38-0400 Inhaled oxygen concentration 30 % Dr. Jose Ramon Turner Work Phone: [facility] 05-20-2022 04:08-0400 Body mass index (BMI) [Ratio] 37.9 kg/m2 Dr. Jose Ramon Turner Work Phone: 1(362)[phone] [place] [address] 05-20-2022 04:08-0400 Body weight 123.[address] Jose Ramon Turner Work Phone: [facility] 05-19-2022 14:55-0400 Body height 180.[address] Jose Ramon Turner Work Phone: [facility] 05-18-2022 17:18-0400 Body temperature 97.5 [degF] Dr. Jose Ramon Turner Work Phone: [facility] 05-18-2022 17:18-0400 Diastolic blood pressure 113 mm[Hg] Dr. Jose Ramon Turner Work Phone: [facility] 05-18-2022 17:18-0400 Heart rate 97 /min Dr. Jose Ramon Turner Work Phone: [facility] 05-18-2022 17:18-0400 Respiratory rate 24 /min Dr. Jose Ramon Turner Work Phone: [facility] 05-18-2022 17:18-0400 SaO2% (BldA) [Mass fraction] 97 % Dr. Jose Ramon Turner Work Phone: [facility] 05-18-2022 17:18-0400 Systolic blood pressure 145 mm[Hg] Dr. Jose Ramon Turner Work Phone: [facility] 05-18-2022 14:59-0400 Body height 180.[address] Jose Ramon Turner Work Phone: [facility] 05-18-2022 14:59-0400 Body mass index (BMI) [Ratio] 38.6 kg/m2 Dr. Jose Ramon Turner Work Phone: [facility] 05-18-2022 14:59-0400 Body weight 125.[address] Jose Ramon Turner Work Phone: [facility] 04-16-2022 13:54-0500 Body temperature 97.7 [degF] Dr. Jose Ramon Turner Work Phone: [facility] 04-16-2022 13:54-0500 Diastolic blood pressure 88 mm[Hg] Dr. Jose Ramon Turner Work Phone: [facility] 04-16-2022 13:54-0500 Heart rate 98 /min Dr. Jose Ramon Turner Work Phone: [facility] 04-16-2022 13:54-0500 Respiratory rate 18 /min Dr. Jose Ramon Turner Work Phone: [facility] 04-16-2022 13:54-0500 SaO2% (BldA) [Mass fraction] 94 % Dr. Jose Ramon Turner Work Phone: [facility] 04-16-2022 13:54-0500 Systolic blood pressure 120 mm[Hg] Dr. Jose Ramon Turner Work Phone: [facility] 04-16-2022 09:58-0500 Inhaled oxygen flow rate 0 L/min Dr. Jose Ramon Turner Work Phone: [facility] 04-16-2022 06:00-0500 Body weight 121.[address] Jose Ramon Turner Work Phone: [facility] 04-16-2022 04:00-0500 Inhaled oxygen concentration 32 % Dr. Jose Ramon Turner Work Phone: [facility] 04-14-2022 10:03-0500 Body height 177.[address] Jose Ramon Turner Work Phone: [facility] 04-14-2022 01:15-0500 Body mass index (BMI) [Ratio] 38.5 kg/m2 Dr. Jose Ramon Turner Work Phone: [facility] 04-14-2022 00:37-0500 Body temperature 97.1 [degF] [facility] 04-14-2022 00:37-0500 Diastolic blood pressure 82 mm[Hg] [facility] 04-14-2022 00:37-0500 Heart rate 102 /min [facility] 04-14-2022 00:37-0500 Inhaled oxygen flow rate 2 L/min [facility] 04-14-2022 00:37-0500 Respiratory rate 22 /min [facility] 04-14-2022 00:37-0500 SaO2% (BldA) [Mass fraction] 100 % [facility] 04-14-2022 00:37-0500 Systolic blood pressure 116 mm[Hg] [facility] 04-13-2022 21:17-0500 Body height 180.34 cm [facility] 04-13-2022 21:17-0500 Body mass index (BMI) [Ratio] 35.8 kg/m2 [facility] 04-13-2022 21:17-0500 Body weight 116.57 kg [facility] 04-03-2022 10:31-0500 Body height 177.8 cm Daksha Turner Work Phone: JL[facility]Mrnvvua[facility]Baqakt [facility] DO Work Phone: 04-03-2022 10:31-0500 Body mass index (BMI) [Ratio] 38.63 kg/m2 Daksha Gary Johnny Work Phone: EI-Ykvamza-Yanhjk [facility] DO Work Phone: 04-03-2022 10:31-0500 Body surface area Derived from formula 2.37 m2 Daksha Gary Johnny Work Phone: XT-Ldwhihg-Tujmld ke [facility] DO Work Phone: 04-03-2022 10:31-0500 Body temperature 97.6 [degF] Daksha Gary Johnny Work Phone: FF-Hstjobe-Cbwtdo ke [facility] [address] DO Work Phone: 04-03-2022 10:31-0500 Body weight 122.13 kg Daksha Gary Johnny Work Phone: VF-Rvkmcnb-Vynguq ke [facility] [address] DO Work Phone: 04-03-2022 10:31-0500 Diastolic blood pressure 73 mm[Hg] Daksha Gary Johnny Work Phone: UF-Zapbcal-Ueyfgs ke [facility] [address] DO Work Phone: 04-03-2022 10:31-0500 Heart rate 123 /min Daksha Gary Johnny Work Phone: WG-Nqhcyrw-Rpncnn ke [facility] [address] DO Work Phone: 04-03-2022 10:31-0500 Systolic blood pressure 111 mm[Hg] Daksha Gary Johnny Work Phone: RE-Lcunwis-Cwuzvk ke [facility] [address] DO Work Phone: 03-11-2022 13:10-0500 Body weight 118.84 kg Haylee Wilburn MD Work Phone: [facility] 03-11-2022 13:10-0500 Diastolic blood pressure 84 mm[Hg] Haylee Wilburn MD Work Phone: [facility] 03-11-2022 13:10-0500 Heart rate 78 /min Haylee Wilburn MD Work Phone: [facility] 03-11-2022 13:10-0500 Respiratory rate 16 /min Haylee Wilburn MD Work Phone: [facility] 03-11-2022 13:10-0500 Systolic blood pressure 134 mm[Hg] Haylee Wilburn MD Work Phone: [facility] 02-17-2022 11:30-0500 Body weight 114.76 kg Haylee Wilburn MD Work Phone: [facility] 02-17-2022 11:30-0500 Diastolic blood pressure 74 mm[Hg] Haylee Wilburn MD Work Phone: [facility] 02-17-2022 11:30-0500 Heart rate 72 /min Haylee Wilburn MD Work Phone: [facility] 02-17-2022 11:30-0500 Respiratory rate 16 /min Haylee Wilburn MD Work Phone: [facility] 02-17-2022 11:30-0500 Systolic blood pressure 132 mm[Hg] Haylee Wilburn MD Work Phone: [facility] 02-16-2022 11:03-0500 Diastolic blood pressure 64 mm[Hg] Sayra Tello MD Work Phone: [facility] 02-16-2022 11:03-0500 Systolic blood pressure 90 mm[Hg] Sayra Tello MD Work Phone: [facility] 02-16-2022 10:55-0500 Body height 180.3 cm Sayra Tello MD Work Phone: [facility] 02-16-2022 10:55-0500 Body weight 115.67 kg Sayra Tello MD Work Phone: [facility] 02-16-2022 10:55-0500 Heart rate 51 /min Sayra Tello MD Work Phone: [facility] 02-16-2022 10:55-0500 SaO2% (BldA) [Mass fraction] 94 % Sayra Tello MD Work Phone: [facility] 02-13-2022 14:10-0500 Body temperature 98.2 [degF] Suman Peterson [employer]Y NUTRITION SPECIALIST.[employer] Work Phone: [facility] 02-13-2022 14:10-0500 Body weight 119.75 kg Suman Peterosn DAIRY NUTRITION SPECIALIST.[employer] Work Phone: [facility] 02-13-2022 14:10-0500 Diastolic blood pressure 87 mm[Hg] Suman Peterson DAIRY NUTRITION SPECIALIST.[employer] Work Phone: [facility] 02-13-2022 14:10-0500 Heart rate 64 /min Suman Peterson DAIRY NUTRITION SPECIALIST.[employer] Work Phone: [facility] 02-13-2022 14:10-0500 Respiratory rate 22 /min Suman Peterson DAIRY NUTRITION SPECIALIST.[employer] ATT[employer] Work Phone: [facility] 02-13-2022 14:10-0500 SaO2% (BldA) [Mass fraction] 94 % Suman Cullens DAIRY NUTRITION SPECIALIST.[employer] ATT[employer] Work Phone: [facility] 02-13-2022 14:10-0500 Systolic blood pressure 138 mm[Hg] Suman Peterson DAIRY NUTRITION SPECIALIST.[employer] ATT[employer] Work Phone: [facility] 02-10-2022 14:00-0500 Body temperature 97.52 [degF] Daksha Turner Other Phone: [facility] 02-10-2022 14:00-0500 Diastolic blood pressure 100 mm[Hg] Daksha Turner Other Phone: [facility] 02-10-2022 14:00-0500 Heart rate 87 /min Daksha Turner Other Phone: [facility] 02-10-2022 14:00-0500 Respiratory rate 18 /min Daksha Turner Other Phone: [facility] 02-10-2022 14:00-0500 SaO2% (BldA) [Mass fraction] 94 % Daksha Turner Other Phone: [facility] 02-10-2022 14:00-0500 Systolic blood pressure 126 mm[Hg] Daksha Turner Other Phone: [facility] 01-29-2022 15:08-0500 Respiratory rate 20 /min Dr. Jose Ramon Turner Work Phone: [facility] 01-29-2022 14:36-0500 Diastolic blood pressure 128 mm[Hg] Dr. Jose Ramon Turner Work Phone: [facility] 01-29-2022 14:36-0500 Heart rate 101 /min Dr. Jose Ramon Turner Work Phone: [facility] 01-29-2022 14:36-0500 SaO2% (BldA) [Mass fraction] 98 % Dr. Jose Ramon Turner Work Phone: [facility] 01-29-2022 14:36-0500 Systolic blood pressure 157 mm[Hg] Dr. Jose Ramon Turner Work Phone: [facility] 01-29-2022 14:00-0500 Inhaled oxygen flow rate 2 L/min Dr. Jose Ramon Turner Work Phone: [facility] 01-29-2022 11:54-0500 Body height 177.[address] Jose Ramon Turner Work Phone: [facility] Work Phone: 01-29-2022 11:54-0500 Body mass index (BMI) [Ratio] 40.1 kg/m2 Dr. Jose Ramon Turner Work Phone: [facility] 01-29-2022 11:54-0500 Body temperature 97.6 [degF] Dr. Jose Ramon Turner Work Phone: [facility] 01-29-2022 11:54-0500 Body weight 126.[address] Jose Ramon Turner Work Phone: [facility] 01-20-2022 20:25-0500 Diastolic blood pressure 103 mm[Hg] Dr. Jose Ramon Turner Work Phone: [facility] 01-20-2022 20:25-0500 Heart rate 88 /min Dr. Jose Ramon Turner Work Phone: [facility] 01-20-2022 20:25-0500 Respiratory rate 31 /min Dr. Jose Ramon Turner Work Phone: [facility] 01-20-2022 20:25-0500 SaO2% (BldA) [Mass fraction] 97 % Dr. Jose Ramon Turner Work Phone: [facility] 01-20-2022 20:25-0500 Systolic blood pressure 136 mm[Hg] Dr. Jose Ramon Turner Work Phone: [facility] 01-20-2022 18:43-0500 Body height 177.[address] Jose Ramon Turner Work Phone: [facility] Work Phone: 01-20-2022 18:43-0500 Body mass index (BMI) [Ratio] 30.9 kg/m2 Dr. Jose Ramon Turner Work Phone: [facility] 01-20-2022 18:43-0500 Body temperature 97.7 [degF] Dr. Jose Ramon Turner Work Phone: [facility] 01-20-2022 18:43-0500 Body weight 97.[address] Jose Ramon Turner Work Phone: [facility] 12-09-2021 10:15-0400 Body height 177.8 cm Alfredo Xavier MD Work Phone: [facility] 12-09-2021 10:15-0400 Body weight 114.31 kg Alfredo Xavier MD Work Phone: [facility] 12-09-2021 10:15-0400 Diastolic blood pressure 91 mm[Hg] Alfredo Xavier MD Work Phone: [facility] 12-09-2021 10:15-0400 Heart rate 98 /min Alfredo Xavier MD Work Phone: [facility] 12-09-2021 10:15-0400 Respiratory rate 22 /min Alfredo Xavier MD Work Phone: [facility] 12-09-2021 10:15-0400 SaO2% (BldA) [Mass fraction] 96 % Alfredo Xavier MD Work Phone: [facility] 12-09-2021 10:15-0400 Systolic blood pressure 131 mm[Hg] Alfredo Xavier MD Work Phone: [facility] 12-09-2021 07:44-0400 Body temperature 97 [degF] Dr. Jose Ramon Turner Work Phone: [facility] Work Phone: 12-09-2021 07:44-0400 Diastolic blood pressure 88 mm[Hg] Dr. Jose Ramon Turner Work Phone: [facility] Work Phone: 12-09-2021 07:44-0400 Heart rate 61 /min Dr. Jose Ramon Turner Work Phone: [facility] Work Phone: 12-09-2021 07:44-0400 Respiratory rate 16 /min Dr. Jose Ramon Turner Work Phone: [facility] Work Phone: 12-09-2021 07:44-0400 SaO2% (BldA) [Mass fraction] 96 % Dr. Jose Ramon Turner Work Phone: [facility] Work Phone: 12-09-2021 07:44-0400 Systolic blood pressure 112 mm[Hg] Dr. Jose Ramon Turner Work Phone: [facility] Work Phone: 12-08-2021 17:06-0400 Inhaled oxygen flow rate 2 L/min Dr. Jose Ramon Turner Work Phone: [facility] Work Phone: 12-08-2021 12:50-0400 Body weight 116.[address] Jose Ramon Turner Work Phone: [facility] Work Phone: 12-07-2021 16:40-0400 Body mass index (BMI) [Ratio] 36.7 kg/m2 Dr. Jose Ramon Turner Work Phone: [facility] Work Phone: 12-07-2021 16:29-0400 Body temperature 98.4 [degF] [facility] Work Phone: 12-07-2021 16:29-0400 Diastolic blood pressure 78 mm[Hg] [facility] Work Phone: 12-07-2021 16:29-0400 Heart rate 98 /min [facility] Work Phone: 12-07-2021 16:29-0400 Inhaled oxygen flow rate 2 L/min [facility] Work Phone: 12-07-2021 16:29-0400 Respiratory rate 24 /min [facility] Work Phone: 12-07-2021 16:29-0400 SaO2% (BldA) [Mass fraction] 97 % [facility] Work Phone: 12-07-2021 16:29-0400 Systolic blood pressure 134 mm[Hg] [facility] Work Phone: 12-07-2021 13:38-0400 Body height 177.8 cm [facility] Work Phone: 12-07-2021 13:38-0400 Body mass index (BMI) [Ratio] 36.6 kg/m2 [facility] Work Phone: 12-07-2021 13:38-0400 Body weight 115.66 kg [facility] Work Phone: 11-19-2021 08:48-0400 Body height 177.8 cm Haylee Wilburn MD Work Phone: [facility] 11-19-2021 08:48-0400 Body weight 118.84 kg Haylee Wilburn MD Work Phone: [facility] 11-19-2021 08:48-0400 Diastolic blood pressure 82 mm[Hg] Haylee Wilburn MD Work Phone: [facility] 11-19-2021 08:48-0400 Heart rate 76 /min Haylee Wilburn MD Work Phone: [facility] 11-19-2021 08:48-0400 Respiratory rate 18 /min Haylee Wilburn MD Work Phone: [facility] 11-19-2021 08:48-0400 Systolic blood pressure 130 mm[Hg] Haylee Wilburn MD Work Phone: [facility] 10-27-2021 11:35-0400 Body height 177.8 cm Pacc 2 Work Phone: [facility] 10-27-2021 11:35-0400 Body temperature 97.7 [degF] Pacc 2 Work Phone: [facility] 10-27-2021 11:35-0400 Body weight 118.39 kg Pacc 2 Work Phone: [facility] 10-27-2021 11:35-0400 Diastolic blood pressure 88 mm[Hg] Pacc 2 Work Phone: [facility] 10-27-2021 11:35-0400 Heart rate 77 /min Pacc 2 Work Phone: [facility] 10-27-2021 11:35-0400 SaO2% (BldA) [Mass fraction] 96 % Pacc 2 Work Phone: [facility] 10-27-2021 11:35-0400 Systolic blood pressure 127 mm[Hg] Pacc 2 Work Phone: [facility] 10-09-2021 10:24-0400 Body temperature 97.7 [degF] Godfrey Maroli DAIRY NUTRITION SPECIALIST.[employer] ATT[employer]ER Work Phone: [facility] 10-09-2021 10:24-0400 Body weight 118.84 kg Godfrey Maroli DAIRY NUTRITION SPECIALIST.[employer] ATT[employer]ER Work Phone: [facility] 10-09-2021 10:24-0400 Diastolic blood pressure 89 mm[Hg] Godfrey Maroli DAIRY NUTRITION SPECIALIST.[employer] ATT[employer]ER Work Phone: [facility] 10-09-2021 10:24-0400 Heart rate 74 /min Godfrey Maroli DAIRY NUTRITION SPECIALIST.[employer] ATT[employer]ER Work Phone: [facility] 10-09-2021 10:24-0400 Respiratory rate 20 /min Godfrey Maroli DAIRY NUTRITION SPECIALIST.[employer] ATT[employer]ER Work Phone: [facility] 10-09-2021 10:24-0400 SaO2% (BldA) [Mass fraction] 97 % Godfrey Maroli DAIRY NUTRITION SPECIALIST.[employer] ATT[employer]ER Work Phone: [facility] 10-09-2021 10:24-0400 Systolic blood pressure 130 mm[Hg] Godfrey Maroli DAIRY NUTRITION SPECIALIST.[employer] ATT[employer]ER Work Phone: [facility] 09-22-2021 12:16-0400 Body height 180.3 cm Chaka Doris DAIRY NUTRITION SPECIALIST.[employer] ATT[employer]ER Work Phone: [facility] 09-22-2021 12:16-0400 Body weight 125.19 kg Chaka Doris DAIRY NUTRITION SPECIALIST.[employer] ATT[employer]ER Work Phone: [facility] 09-22-2021 12:16-0400 Diastolic blood pressure 90 mm[Hg] Chaka Doris DAIRY NUTRITION SPECIALIST.[employer] ATT[employer]ER Work Phone: [facility] 09-22-2021 12:16-0400 Heart rate 90 /min Chaka Doris DAIRY NUTRITION SPECIALIST.[employer] ATT[employer]ER Work Phone: [facility] 09-22-2021 12:16-0400 Respiratory rate 18 /min Chaka George DAIRY NUTRITION SPECIALIST.[employer] ATT[employer]ER Work Phone: [facility] 09-22-2021 12:16-0400 SaO2% (BldA) [Mass fraction] 97 % Chaka George DAIRY NUTRITION SPECIALIST.[employer] ATT[employer]ER Work Phone: [facility] 09-22-2021 12:16-0400 Systolic blood pressure 128 mm[Hg] Chaka George DAIRY NUTRITION SPECIALIST.[employer] ATT[employer]ER Work Phone: [facility] 09-11-2021 13:30-0400 Body temperature 97.11 [degF] Kenneth Chester MD Work Phone: [facility] 09-11-2021 13:30-0400 Body weight 118.07 kg Kenneth Chester MD Work Phone: [facility] 09-11-2021 13:30-0400 Diastolic blood pressure 89 mm[Hg] Kenneth Chester MD Work Phone: [facility] 09-11-2021 13:30-0400 Heart rate 92 /min Kenneth Chester MD Work Phone: [facility] 09-11-2021 13:30-0400 Respiratory rate 20 /min Kenneth Chester MD Work Phone: [facility] 09-11-2021 13:30-0400 SaO2% (BldA) [Mass fraction] 95 % Kenneth Chester MD Work Phone: [facility] 09-11-2021 13:30-0400 Systolic blood pressure 139 mm[Hg] Kenneth Chester MD Work Phone: [facility] 09-02-2021 14:09-0400 Body temperature 97.9 [degF] [place] (Trac) Work Phone: [facility] 09-02-2021 14:09-0400 Body weight 118.16 kg [place] (Trac) Work Phone: [facility] 09-02-2021 14:09-0400 Diastolic blood pressure 99 mm[Hg] [place] (Trac) Work Phone: [facility] 09-02-2021 14:09-0400 Heart rate 105 /min [place] (Trac) Work Phone: [facility] 09-02-2021 14:09-0400 Respiratory rate 22 /min [place] (Trac) Work Phone: [facility] 09-02-2021 14:09-0400 SaO2% (BldA) [Mass fraction] 100 % [place] (Trac) Work Phone: [facility] 09-02-2021 14:09-0400 Systolic blood pressure 135 mm[Hg] [place] (Trac) Work Phone: [facility] 08-19-2021 11:57-0400 Body temperature 98.1 [degF] Godfrey Clayton RN [facility] 08-19-2021 11:57-0400 Respiratory rate 18 /min Godfrey Clayton RN [facility] 08-19-2021 10:05-0400 Body weight 113.81 kg Lalo Black MD Work Phone: [facility] 08-19-2021 10:05-0400 Diastolic blood pressure 102 mm[Hg] Lalo Black MD Work Phone: [facility] 08-19-2021 10:05-0400 Heart rate 90 /min Lalo Black MD Work Phone: [facility] 08-19-2021 10:05-0400 SaO2% (BldA) [Mass fraction] 96 % Lalo Black MD Work Phone: [facility] 08-19-2021 10:05-0400 Systolic blood pressure 136 mm[Hg] Lalo Black MD Work Phone: [facility] 08-08-2021 09:19-0400 Body temperature 99 [degF] Godfrey Maroli DAIRY NUTRITION SPECIALIST.[employer] ATT[employer]ER Work Phone: [facility] 08-08-2021 09:19-0400 Body weight 117.98 kg Godfrey Maroli DAIRY NUTRITION SPECIALIST.[employer] ATT[employer]ER Work Phone: [facility] 08-08-2021 09:19-0400 Diastolic blood pressure 98 mm[Hg] Godfrey Maroli DAIRY NUTRITION SPECIALIST.[employer] ATT[employer]ER Work Phone: [facility] 08-08-2021 09:19-0400 Heart rate 109 /min Godfrey Maroli DAIRY NUTRITION SPECIALIST.CROWN ATTACHER Work Phone: [facility] 08-08-2021 09:19-0400 Respiratory rate 20 /min Godfrey Maroli DAIRY NUTRITION SPECIALIST.CROWN ATTACHER Work Phone: [facility] 08-08-2021 09:19-0400 SaO2% (BldA) [Mass fraction] 95 % Godfrey Maroli DAIRY NUTRITION SPECIALIST.CROWN ATTACHER Work Phone: [facility] 08-08-2021 09:19-0400 Systolic blood pressure 141 mm[Hg] Godfrey Maroli DAIRY NUTRITION SPECIALIST.CROWN ATTACHER Work Phone: [facility] 08-06-2021 09:56-0400 Body temperature 98.1 [degF] Godfrey Clayton RN [facility] seferino 08-06-2021 09:56-0400 Body weight 118.3 kg Godfrey Clayton RN [facility] 08-06-2021 09:56-0400 Diastolic blood pressure 92 mm[Hg] Godfrey Clayton RN [facility] 08-06-2021 09:56-0400 Heart rate 99 /min Godfrey Clayton RN [facility] 08-06-2021 09:56-0400 Respiratory rate 20 /min Godfrey Clayton RN [facility] seferino 08-06-2021 09:56-0400 SaO2% (BldA) [Mass fraction] 99 % Godfrey Clayton RN [facility] 08-06-2021 09:56-0400 Systolic blood pressure 144 mm[Hg] Godfrey Clayton RN [facility] 07-31-2021 09:23-0400 Diastolic blood pressure 103 mm[Hg] Lalo Black MD Work Phone: [facility] 07-31-2021 09:23-0400 Heart rate 72 /min Lalo Black MD Work Phone: [facility] 07-31-2021 09:23-0400 Respiratory rate 12 /min Lalo Black MD Work Phone: [facility] 07-31-2021 09:23-0400 SaO2% (BldA) [Mass fraction] 95 % Lalo Black MD Work Phone: [facility] 07-31-2021 09:23-0400 Systolic blood pressure 147 mm[Hg] Lalo Black MD Work Phone: [facility] 07-24-2021 10:13-0400 Body temperature 98.29 [degF] Godfrey Maroli DAIRY NUTRITION SPECIALIST.CROWN ATTACHER Work Phone: [facility] 07-24-2021 10:13-0400 Body weight 118 kg Godfrey Maroli DAIRY NUTRITION SPECIALIST.CROWN ATTACHER Work Phone: [facility] 07-24-2021 10:13-0400 Diastolic blood pressure 92 mm[Hg] Godfrey Maroli DAIRY NUTRITION SPECIALIST.CROWN ATTACHER Work Phone: [facility] 07-24-2021 10:13-0400 Heart rate 88 /min Godfrey Maroli DAIRY NUTRITION SPECIALIST.CROWN ATTACHER Work Phone: [facility] 07-24-2021 10:13-0400 Respiratory rate 20 /min Godfrey Maroli DAIRY NUTRITION SPECIALIST.CROWN ATTACHER Work Phone: [facility] 07-24-2021 10:13-0400 SaO2% (BldA) [Mass fraction] 99 % Godfrey Maroli DAIRY NUTRITION SPECIALIST.CROWN ATTACHER Work Phone: [facility] 07-24-2021 10:13-0400 Systolic blood pressure 146 mm[Hg] Godfrey Maroli DAIRY NUTRITION SPECIALIST.CROWN ATTACHER Work Phone: [facility] 07-21-2021 08:57-0400 Diastolic blood pressure 91 mm[Hg] Godfrey Clayton RN [facility] 07-21-2021 08:57-0400 Systolic blood pressure 146 mm[Hg] Godfrey Clayton RN [facility] 07-21-2021 08:49-0400 Body temperature 98.2 [degF] [facility] 07-21-2021 08:49-0400 Heart rate 72 /min Godfrey Clayton RN [facility] ic 07-21-2021 08:49-0400 Respiratory rate 20 /min Godfrey Clayton RN [facility] se[facility] 07-21-2021 08:49-0400 SaO2% (BldA) [Mass fraction] 99 % Godfrey Clayton RN [facility] 07-14-2021 14:42-0400 Body temperature 99.5 [degF] Godfrey Maroli DAIRY NUTRITION SPECIALIST.CROWN ATTACHER Work Phone: [facility] 07-14-2021 14:42-0400 Body weight 118.48 kg Godfrey Maroli DAIRY NUTRITION SPECIALIST.CROWN ATTACHER Work Phone: [facility] 07-14-2021 14:42-0400 Diastolic blood pressure 99 mm[Hg] Godfrey Maroli DAIRY NUTRITION SPECIALIST.CROWN ATTACHER Work Phone: [facility] 07-14-2021 14:42-0400 Heart rate 77 /min Godfrey Maroli DAIRY NUTRITION SPECIALIST.CROWN ATTACHER Work Phone: [facility] 07-14-2021 14:42-0400 Respiratory rate 20 /min Godfrey Maroli DAIRY NUTRITION SPECIALIST.CROWN ATTACHER Work Phone: [facility] 07-14-2021 14:42-0400 SaO2% (BldA) [Mass fraction] 100 % Godfrey Maroli DAIRY NUTRITION SPECIALIST.CROWN ATTACHER Work Phone: [facility] 07-14-2021 14:42-0400 Systolic blood pressure 143 mm[Hg] Godfrey Maroli DAIRY NUTRITION SPECIALIST.CROWN ATTACHER Work Phone: [facility] 07-02-2021 11:53-0400 Diastolic blood pressure 89 mm[Hg] Kenneth Chester MD Work Phone: [facility] 07-02-2021 11:53-0400 Heart rate 71 /min Kenneth Chester MD Work Phone: [facility] 07-02-2021 11:53-0400 Respiratory rate 20 /min Kenneth Chester MD Work Phone: [facility] 07-02-2021 11:53-0400 SaO2% (BldA) [Mass fraction] 98 % Kenneth Chester MD Work Phone: [facility] 07-02-2021 11:53-0400 Systolic blood pressure 150 mm[Hg] Kenneth Chester MD Work Phone: [facility] 06-23-2021 10:56-0400 Body weight 115.03 kg Adriana Hodge MD Work Phone: [facility] 06-23-2021 10:56-0400 Diastolic blood pressure 92 mm[Hg] Adriana Hodge MD Work Phone: [facility] 06-23-2021 10:56-0400 Heart rate 59 /min Adriana Hodge MD Work Phone: [facility] 06-23-2021 10:56-0400 Systolic blood pressure 142 mm[Hg] Adriana Hodge MD Work Phone: [facility] 06-19-2021 19:35-0400 Body temperature 98.6 [degF] Family Unavailable [facility] 06-19-2021 19:35-0400 Diastolic blood pressure 90 mm[Hg] Family Unavailable [facility] 06-19-2021 19:35-0400 Heart rate 71 /min Family Unavailable [facility] 06-19-2021 19:35-0400 Respiratory rate 20 /min Family Unavailable [facility] 06-19-2021 19:35-0400 SaO2% (BldA) [Mass fraction] 100 % Family Unavailable [facility] 06-19-2021 19:35-0400 Systolic blood pressure 156 mm[Hg] Family Unavailable [facility] 06-19-2021 15:47-0400 Body height 180.34 cm Family Unavailable [facility] 06-19-2021 15:47-0400 Body mass index (BMI) [Ratio] 34.1 kg/m2 Family Unavailable [facility] 06-19-2021 15:47-0400 Body weight 111 kg Family Unavailable [facility] Encounters Encounter Date Encounter Type Care Provider Facility Start: 10-02-2024 End: 10-02-2024 Patient encounter procedure Gini CONLEY -[facility] Work Phone: Start: 10-02-2024 End: 10-02-[address] Daksha Turner MD Work Phone: -[facility] Start: 10-02-2024 End: 10-02-2024 ambulatory Daksha Turner Facility:[facility] Start: 09-26-2024 Non-patient / Non-visit Gini plascencia NP-Tangela -[facility] Work Phone: Start: 09-26-2024 ambulatory Daksha Turner Faci lity:[facility] Start: 09-25-2024 ambulatory Daksha Turner Faci lity:[facility] Start: 09-25-2024 Non-patient / Non-visit Dr. Peg CLEMENT -[facility] Start: 09-25-2024 End: 09-25-[address] Daksha Turner MD Work Phone: -[facility] [place] Start: 09-25-2024 End: 09-25-[address] Daksha Turner MD -[facility] [place] Work Phone: Start: 09-25-2024 End: 09-25-[address] Daksha Turner MD Work Phone: -Cardiovascular Services Start: 09-25-2024 End: 09-25-2024 Patient encounter procedure Gini CONLEY -Cardiovascular Services Work Phone: Start: 09-24-2024 End: 09-25-2024 ambulatory Daksha Turner Facility:[facility] Start: 09-24-2024 Non-patient / Non-visit Dr. Peg CLEMENT -[facility] Start: 09-12-2024 ambulatory Daksha Nicholas lity:[facility] Start: 08-14-2024 End: 09-04-[address] Daksha Turner MD -Nutritional Services Work Phone: Start: 08-14-[address] Fazal Turner MD -Nutritional Services Work Phone: Start: 08-14-2024 End: 09-04-[address] Daksha Turner MD Work Phone: -Nutritional Services Start: 08-14-2024 End: 08-14-2024 Patient encounter procedure Gini Couch NP-Tangela -[facility] Work Phone: Start: 08-14-2024 End: 08-14-[address] Daksha Turner MD Work Phone: [facility] Work Phone: Start: 08-14-2024 End: 08-14-2024 ambulatory Gini Couch Facility:[facility] Start: 08-01-2024 ambulatory Daksha Arthuri lity:[facility] Start: 07-18-2024 ambulatory Daksha Nicholas lity:[facility] Start: 06-20-2024 End: 06-20-[address] Daksha Turner MD Work Phone: [facility] Work Phone: Start: 06-20-2024 End: 06-20-[address] Dangelo Botello MD -[facility] Work Phone: Start: 06-20-2024 End: 06-20-2024 ambulatory Daksha Turner Facility:[facility] Start: 06-13-2024 End: 06-13-[address] Daksha Turner MD Work Phone: [facility] Work Phone: Start: 06-13-2024 End: 06-13-[address] Dangelo Botello MD -Cat Scan, [facility] Work Phone: Start: 06-13-2024 End: 06-13-2024 ambulatory Daksha Turner Facility:[facility] Start: 06-05-2024 End: 06-05-[address] Daksha Turner MD -Nutritional Services Work Phone: Start: 06-05-2024 End: 06-05-[address] Daksha Turner MD Work Phone: [facility] Work Phone: Start: 03-22-2024 End: 03-22-[address] Isidra Chiu DO -Laboratory Work Phone: Start: 03-22-2024 End: 03-22-2024 ambulatory Isidra Chiu Facility:[facility] Start: 02-08-2024 End: 02-08-[address] Daksha Turner MD -Cat Scan, [facility] Work Phone: Start: 02-08-2024 End: 02-08-2024 ambulatory Daksha Turner Facility:[facility] Start: 01-11-2024 End: 01-11-2024 ambulatory Daksha Turner Facility:[facility] Start: 12-22-2023 End: 12-22-2023 ambulatory Daksha Turner [facility] Start: 12-22-2023 End: 12-22-2023 ambulatory Daksha Turner Facility:[facility] Start: 05-27-2023 End: 05-27-[address] Jose Ramon Turner Work Phone: [facility] Work Phone: Start: 05-27-2023 End: 05-27-[address] Jose Ramon Turner [facility] Phone[facility] Start: 05-21-2023 End: 05-21-[address] Jose Ramon Turner Work Phone: [facility] Work Phone: Start: 05-21-2023 End: 05-21-[address] Jose Ramon Turner Work Phone: [facility]-Laboratory, Specimen Work Phone: Start: 05-20-2023 End: 05-20-[address] Jose Ramon Turner Work Phone: [facility] Work Phone: Start: 05-20-2023 End: 05-20-[address] Jose Ramon Turner Work Phone: [facility]-Laboratory Work Phone: Start: 04-26-2023 End: 04-26-[address] Jose Ramon Turner Work Phone: [facility] Work Phone: Start: 04-26-2023 End: 04-26-[address] Jose Ramon Turner Work Phone: [facility] Work Phone: Start: 04-12-[address] Fazal Turner Work Phone: [facility] Oncology Start: 04-12-2023 End: 04-12-[address] Jose Ramon Turner Work Phone: [facility] Work Phone: Start: 03-04-2023 End: 03-04-[address] Jose Ramon Turner Work Phone: [facility] Work Phone: Start: 03-04-2023 End: 03-04-[address] Jose Ramon Turner Work Phone: [facility], [facility] Work Phone: Start: 02-12-2023 End: 02-12-[address] Jose Ramon Turner Work Phone: [facility] Work Phone: Start: 02-12-2023 End: 02-12-[address] Jose Ramon Turner Work Phone: [facility]-Laboratory, Specimen Work Phone: Start: 12-30-2022 End: 12-30-[address] Jose Ramon Turner Work Phone: [facility] Work Phone: Start: 12-30-2022 End: 12-30-[address] Jose Ramon Turner Work Phone: [facility]-Radiology, [place] Work Phone: Start: 12-17-2022 Non-patient / Non-visit Dr. Sejal Turner Work Phone: [facility] Inpatient Physicians Work Phone: Start: 12-16-2022 End: 12-17-2022 Evaluation and management of inpatient Dr. Jose Ramon Turner Work Phone: [facility]-Progressive Care Unit Work Phone: Start: 12-16-2022 Non-patient / Non-visit Dr. Sejal Turner Work Phone: [facility] Inpatient Physicians Work Phone: Start: 12-15-2022 Non-patient / Non-visit Dr. Sejal Turner Work Phone: [facility] Inpatient Physicians Work Phone: Start: 11-12-2022 End: 11-12-[address] Jose Ramon Turner Work Phone: [facility]-Laboratory, [place] Work Phone: Start: 09-29-2022 End: 09-29-[address] Jose Ramon Turner Work Phone: [facility] Work Phone: Start: 09-03-2022 End: 09-03-[address] Jose Ramon Turner Work Phone: [facility] Work Phone: Start: 09-03-[address] Fazal Turner Work Phone: [facility] Oncology Start: 09-01-2022 End: 09-01-[address] Jose Ramon Turner Work Phone: [facility] Work Phone: Start: 09-01-2022 End: 09-01-[address] Jose Ramon Turner Work Phone: [facility] Work Phone: Start: 07-17-[address] Jose Ramon Turner Facility:[id number] Start: 07-16-2022 Non-patient / Non-visit Dr. Sejal Turner Work Phone: [facility] Start: 07-16-2022 End: 07-16-[address] Jose Ramon Turner Work Phone: [facility]-Pulmonary Services/Neurology Work Phone: Start: 06-29-2022 Non-patient / Non-visit Dr. Sejal Turner Work Phone: [facility] Inpatient Physicians Start: 06-28-2022 End: 06-29-2022 Evaluation and management of inpatient Dr. Jose Ramon Turner Work Phone: [facility]-Progressive Care Unit Start: 05-27-2022 End: 05-27-[address] Jose Ramon Turner Work Phone: [facility] Start: 05-27-2022 End: 05-27-[address] Jose Ramon Turner Work Phone: [facility] Heart [facility] Start: 05-20-2022 Non-patient / Non-visit Dr. Sejal Turner Work Phone: [facility] Inpatient Physicians Start: 05-19-2022 Non-patient / Non-visit Dr. Sejal Turner Work Phone: [facility] Inpatient Physicians Start: 05-18-2022 End: 05-20-2022 Evaluation and management of inpatient Dr. Jose Ramon Turner [facility] Start: 04-16-2022 Non-patient / Non-visit Dr. Sjeal Turner Work Phone: [facility] Start: 04-15-2022 Non-patient / Non-visit Dr. Sejal Turner Work Phone: [facility] Inpatient Physicians Start: 04-15-2022 End: 04-15-2022 Non-patient / Non-visit Dr. Jose Ramon Turner Work Phone: [facility] Start: 04-14-2022 Non-patient / Non-visit Dr. Sejal Turner Work Phone: [facility] Start: 04-14-2022 Non-patient / Non-visit Dr. Sejal Turner Work Phone: [facility] Inpatient Physicians Start: 04-13-2022 End: 04-16-2022 Evaluation and management of [facility] Start: 04-13-2022 End: 04-13-[address] Jose Ramon Turner Work Phone: [facility] Work Phone: Start: 04-13-2022 End: 04-13-2022 Patient encounter procedure [facility] Start: 04-09-2022 End: 04-10-2022 ambulatory DAKSHA TURNER Facility:[id number] Start: 04-09-2022 End: 04-09-2022 ambulatory Chair [facility] Comment on above: Malignant neoplasm o f right kidney, except renal pelvis (HCC) (Primary Dx) Start: 04-03-2022 Postop follow up vis it related to original px Daksha Turner Work Phone: [facility] DO Work Phone: Start: 04-03-[address] Jose Ramon Turner Facility:[id number] Start: 04-02-2022 Telephone encounter America Schwartz RN Hematology Oncology Comment on above: Appointment Appointment (No show ) Start: 03-26-2022 ambulatory HAYLEE WILBURN Facility :[id number] Start: 03-26-2022 End: 03-26-2022 Subsequent hospital visit by physician Ct Prep [facility] Work Phone: Radiology CT Scan Comment on above: Malignant neoplasm o f right kidney, except renal pelvis [C64.1] Start: 03-25-2022 Telephone encounter Haylee Wilburn MD Work Phone: Hematology Oncology Comment on above: Appointment; Care Co ordinator - Other Start: 03-23-2022 [facility] Comment on above: [facility] [place] Start: 03-23-2022 Patient encounter procedure Haley Sadler RT(R) [facility] Start: 03-23-2022 End: 03-23-2022 Subsequent hospital visit by physician [facility] 1 Work Phone: Nuclear Medicine Comment on above: Renal cell carcinoma of right kidney (HCC) [C64.1] Start: 03-16-2022 Refill Haylee Wilburn MD Work Phone: Hematology/Oncology Comment on above: Refill Request (Inly ta to [facility]) Start: 03-12-2022 ambulatory [facility] Start: 03-12-2022 [facility] Comment on above: SPP Oral Oncology/he matology - Treatment Referral (Inlyta); Insurance Authorization (Pending PA) Start: 03-12-2022 Telephone encounter America Schwartz RN Hematology Oncology Comment on above: Appointment Start: 03-11-2022 End: 03-12-2022 ambulatory HAYLEE WILBURN Facility:[id number] Start: 03-11-2022 End: 03-11-2022 Office outpatient visit 25 minutes Haylee Wilburn MD Work Phone: Hematology Oncology Comment on above: Renal cell carcinoma of right kidney (HCC) (Primary Dx) Start: 02-26-2022 [id number] Start: 02-26-2022 End: 02-26-2022 Subsequent hospital visit by physician Echo Lab [address] [facility] Cardiology Comment on above: Acute decompensated heart failure (HCC) [I50.9] Start: 02-17-2022 End: 02-18-2022 ambulatory HAYLEE WILBURN Facility:[id number] Start: 02-17-2022 End: 02-17-2022 Office outpatient visit 25 minutes Haylee Wilburn MD Work Phone: Hematology Oncology Comment on above: Metastatic renal maggie l carcinoma, unspecified laterality (HCC) (Primary Dx) Start: 02-16-2022 End: 02-16-2022 ambulatory SAYRA TELLO Facility:[id number] Start: 02-16-2022 End: 02-16-2022 Office outpatient new 60 minutes Sayra Tello MD Work Phone: [facility] Cardiology Comment on above: Paroxysmal atrial fi brillation (HCC) (Primary Dx); Nonrheumatic mitral valve regurgitation; Acute decompensated heart failure (HCC); Essential hypertension; Tobacco use disorder; NIMCO (obstructive sleep apnea) Start: 02-13-2022 End: 02-14-2022 ambulatory SUMAN PETERSON Facility:[id number] Start: 02-13-2022 End: 02-13-2022 Patient encounter procedure Suman Peterson DAIRY NUTRITION SPECIALIST.CROWN ATTACHER Work Phone: Radiation Oncology Comment on above: Renal cell carcinoma of right kidney metastatic to other site (HCC) (Primary Dx) Start: 02-11-2022 Chart abstracting Adrienne Lee MA [facility] Cardiology Start: 02-06-2022 [facility], Provider: Aravind Hernandez, Status: Pen, Time: 9:30 AM Daksha Turner Work Phone: [facility] DO Work Phone: Start: 02-06-2022 End: 02-10-2022 Evaluation and management of inpatient Aravind [place] [id number] Start: 02-05-2022 Telephone encounter Sayra Tello MD Work Phone: [facility] Cardiology Comment on above: Patient Question Start: 02-05-2022 Chart Update Daksha Turner Work Phone: [facility] DO Work Phone: Start: 02-03-2022 Chart Update Daksha Turner Work Phone: [facility] DO Work Phone: Start: 01-29-2022 End: 01-29-2022 Emergency department patient visit Dr. Jose Ramon Turner Work Phone: [facility]-Emergency Department Start: 01-27-[address] ARAVIND Barragan acility:[id number] Start: 01-27-2022 Encounter for blood typing Dr. ARAVIND HERNANDEZ [facility] Start: 01-27-2022 Encounter for preprocedural laboratory examination Dr. ARAVIND HERNANDEZ [facility] Start: 01-23-2022 ambulatory Krish Scott Work Phone: Urology Start: 01-22-2022 Refill Kitty cook PA-C Work Phone: Hematology Oncology Comment on above: Refill Request Start: 01-20-2022 End: 01-20-2022 Emergency department patient visit Dr. Jose Ramon Turner Work Phone: [facility]-Emergency Department Start: 01-19-2022 ambulatory KITTY Rojas ty:[id number] Start: 01-19-2022 End: 01-19-2022 Subsequent hospital visit by physician [facility] Comment on above: Renal cell carcinoma of right kidney (HCC) [C64.1] Start: 2022 Patient encounter procedure Alfredo Xavier MD Work Phone: [facility] Start: 2022 Radiation Oncology Note Alfredo Xavier MD Work Phone: Radiation Oncology Comment on above: Completion Note Start: 12-30-2021 ambulatory Julee Nash RN [facility] & Start: 12-30-2021 Telephone encounter Adriana glynn MD Work Phone: Urology Comment on above: Informed Consent Start: 12-28-2021 Telephone encounter Adriana glynn MD Work Phone: Urology Comment on above: Hat [employer]ovator - O ther; Patient Update Start: 12-27-2021 Telephone encounter Adriana glynn MD Work Phone: Urology Comment on above: Patient Update Start: 12-26-2021 End: 12-26-2021 ambulatory ALFREDO XAVIER Facility:[id number] Start: 12-25-2021 End: 12-25-2021 ambulatory ALFREDO XAVIER Facility:[id number] Start: 12-24-2021 End: 12-24-2021 ambulatory ALFREDO XAVIER Facility:[id number] Start: 12-23-2021 End: 12-23-2021 ambulatory ALFREDO XAVIER Facility:[id number] Start: 12-22-2021 End: 12-22-2021 ambulatory ALFREDO XAVIER Facility:[id number] Start: 12-12-2021 Patient encounter procedure Alfredo Xavier MD Work Phone: [facility] Start: 12-12-2021 Radiation Oncology Note Alfredo Xavier MD Work Phone: Radiation Oncology Comment on above: Treatment Planning Simulation Note Start: 12-12-2021 End: 12-12-2021 ambulatory ALFREDO XAVIER Facility:[id number] Start: 12-09-2021 End: 12-09-2021 ambulatory Noreen Morejon Work Phone: [facility] Chronic Disease Management Start: 12-09-2021 [facility] visit new patient Noreen Morejon Work Phone: [facility] Chronic Disease Management Comment on above: New patient, to genesis griggs relationship; Invalid number; Letter Request Start: 12-09-2021 End: 12-09-2021 Office outpatient visit 15 minutes Alfredo Xavier MD Work Phone: Radiation Oncology Comment on above: Renal cell carcinoma of right kidney (HCC) (Primary Dx) Start: 12-09-2021 Non-patient / Non-visit Dr. Sejal Turner Work Phone: [facility] Inpatient Physicians Start: 12-08-2021 Non-patient / Non-visit Dr. Sejal Turner Work Phone: [facility] Inpatient Physicians Start: 12-07-2021 Non-patient / Non-visit Dr. Sejal Turner Work Phone: [place] [facility] Inpatient Physicians Start: 12-07-2021 End: 12-09-2021 Evaluation and management of inpatient [facility] Start: 11-29-2021 Telephone encounter Adriana glynn MD Work Phone: Urology Comment on above: Results; Patient Upd ate; Hat Renovator - Other Start: 11-24-2021 Telephone encounter America Schwartz RN Hematology Oncology Comment on above: Patient Update (Call ed patient to inform him that the speciality pharmacy is going to call to set-up delivery time for his chemo medication. Patient verbalized understanding. America Schwartz, RN, BSN, OCN/) Start: 11-20-2021 End: 11-20-2021 ambulatory KIMOELA TURNER Facility:[facility] Start: 11-20-2021 End: 11-20-2021 Subsequent hospital visit by physician Ct 2 Main Qb (I-Stat) Radiology Comment on above: Malignant neoplasm o f right kidney, except renal pelvis (HCC) [C64.1] Start: 11-19-2021 End: 11-20-2021 ambulatory HAYLEE WILBURN Facility:[id number] Start: 11-19-2021 End: 11-19-2021 Office outpatient visit 25 minutes Haylee Wiblurn MD Work Phone: Hematology Oncology Comment on above: Metastatic renal maggie l carcinoma, unspecified laterality (HCC) (Primary Dx) Start: 11-06-2021 Telephone encounter Haylee pimentel Work Phone: Hematology Oncology Comment on above: Patient Update Hat Renovator - O ther (Calling to get an [...] Start: 10-27-2021 End: 10-28-2021 ambulatory DAKSHA TURNER Facility:[facility] Start: 10-27-2021 End: 10-27-2021 [facility] Pac Main 2 Work Phone: Pre Anesthesia [...] without esophagitis; Prediabetes; Coronary artery disease involving yuhaaviatam coronary artery of yuhaaviatam heart, unspecified whether angina present PreOp Call (Cardiac Optimization, Warfarin Clearance) Start: 10-27-2021 End: 10-28-2021 ambulatory DAKSHA TURNER Facility:[facility] Start: 10-27-2021 Encounter for other preprocedural examination KENNETH CHESTER [facility] Start: 10-27-2021 End: 10-27-2021 Preprocedural examination done Pac Main 2 Work Phone: Pre Anesthesia Start: 10-21-2021 Telephone encounter Haylee Wilburn MD Work Phone: Hematology Oncology Comment on above: Medication Problem ( [facility] and canceled rx for cabzantinib and sent new order to [facility] speciality pharmacy.) Refill Request Start: 10-20-2021 End: 10-21-2021 ambulatory HAYLEE WILBURN Facility:[id number] Start: 10-16-2021 Telephone encounter Kenneth mayorga MD Work Phone: Hematology/Oncology Comment on above: Hat Renovator - O ther Start: 10-14-2021 Telephone encounter Rahul Knight RN Hematology/Oncology Comment on above: Patient Update Patient Question Start: 10-09-2021 End: 10-10-2021 ambulatory KENNETH CHESTER Facility:[facility] Start: 10-09-2021 End: 10-09-2021 ambulatory Godfrey Ohara APRN.CROWN ATTACHER Work Phone: Hematology/Oncology Comment on above: Renal cell carcinoma of right kidney (HCC) (Primary Dx); Atrial fibrillation, unspecified type (HCC) Start: 10-09-2021 End: 10-09-2021 Nursing evaluation of patient and report Rahul Knight RN Hematology/Oncology Comment on above: Renal cell carcinoma of right kidney (HCC) (Primary Dx) Start: 10-09-2021 End: 10-09-2021 Patient encounter procedure Godfrey Ohara APRN.CROWN ATTACHER Work Phone: [facility] Start: 10-06-2021 ambulatory DAKSHA TURNER Fa cility:[facility] Start: 09-29-2021 Patient Outreach Safia martinez [facility] Work Phone: Pharmacy Comment on above: Transition Of Care ( Pharmacy - Hospital Discharge 09/26/21); Heart Failure Follow Up Phone Call (relate care discharge follow up-1st attempt-no contact-left vm) Start: 09-25-2021 End: 09-25-2021 ambulatory DAKSHA TURNER Facility:[facility] Start: 09-25-2021 End: 09-25-2021 Patient encounter procedure Ip Transesophageal Echo Cardiology Comment on above: Paroxysmal atrial fi brillation (HCC) (Primary Dx) Start: 09-22-2021 End: 09-26-2021 Evaluation and management of inpatient [facility] Facility:[facility] Start: 09-22-2021 End: 09-22-2021 ambulatory [facility] Facility:[facility] Start: 09-22-2021 End: 09-22-2021 Patient encounter procedure Chaka George APRN.CNP Work Phone: Cardiology Comment on above: Paroxysmal atrial fi brillation (HCC) (Primary Dx); Mitral valve insufficiency, unspecified etiology; New onset a-fib (HCC); Essential hypertension; Mixed hyperlipidemia; 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) Start: 09-19-2021 Telephone encounter Rahul Knight optician/Oncology Comment on above: Patient Question Start: 09-16-2021 Telephone encounter Rahul Knight RN Hematology/Oncology Comment on above: Patient Update Start: 09-11-2021 End: 09-12-2021 ambulatory [facility] Facility:[facility] Start: 09-11-2021 End: 09-11-2021 ambulatory Kenneth [...] Kenneth Chester MD Work Phone: [facility] Start: 09-05-2021 Telephone encounter Kenneth mayorga MD Work Phone: Hematology/Oncology Comment on above: Hat Renovator - O ther Start: 09-04-2021 End: 09-04-2021 Evaluation and management of inpatient [place] Abdirahman MONTESYALE Facility:[facility] Start: 09-02-2021 End: 09-04-2021 Evaluation and management of inpatient [place] Abdirahman MONTESYALE Facility:[facility] Start: 09-02-2021 End: 09-02-2021 ambulatory [facility] Facility:[facility] Start: 09-02-2021 End: 09-02-2021 Subsequent hospital visit by physician Ct 2 Main Qb (I-Stat) Radiology Comment on above: SOB (shortness of br eath) [R06.02] Start: 09-02-2021 End: 09-03-2021 [facility] Comment on above: SOB (shortness of br eath) (Primary Dx) Start: 09-02-2021 End: 09-02-2021 Patient encounter procedure [facility] ([facility]) Work Phone: [facility] Start: 09-02-2021 Chart abstracting Godfrey Martinez Hematology/Oncology Start: 09-02-2021 End: 09-02-2021 Subsequent hospital visit by physician Xr Main Ca LLD Work Phone: Radiology Comment on above: SOB (shortness of br eath) [R06.02] Start: 09-01-2021 Telephone encounter Adriana glynn MD Work Phone: Urology Comment on above: Results; Patient Upd ate; Hat Renovator - Other Start: 08-27-2021 End: 08-27-2021 Orders Only Godfrey Ohara DAIRY NUTRITION SPECIALIST.CROWN ATTACHER Work Phone: Hematology/Oncology Comment on above: Malignant neoplasm o f right kidney, except renal pelvis (HCC) (Primary Dx) Start: 08-20-2021 Orders Only Godfrey Bhardwaj i DAIRY NUTRITION SPECIALIST.CROWN ATTACHER Work Phone: Hematology/Oncology Comment on above: Malignant neoplasm o f right kidney, except renal pelvis (HCC) (Primary Dx); Malignant neoplasm of kidney excluding renal pelvis, unspecified laterality (HCC) Start: 08-19-2021 End: 08-19-2021 ambulatory KENNETH CHESTER Facility:[facility] Start: 08-19-2021 End: 08-19-2021 Nursing evaluation of patient and report Godfrey Clayton RN Hematology/Oncology Comment on above: Renal cell carcinoma , unspecified laterality (HCC) (Primary Dx) Start: 08-19-2021 End: 08-19-2021 Patient encounter procedure Godfrey Ohara APRN.CROWN ATTACHER Work Phone: [facility] Start: 08-19-2021 End: 08-20-2021 ambulatory Godfrey Ohara APRN.CROWN ATTACHER Work Phone: Hematology/Oncology Comment on above: Renal cell carcinoma , unspecified laterality (HCC) (Primary Dx); Hypertension, unspecified type Start: 08-19-2021 End: 08-19-2021 Patient encounter procedure Lalo Black MD Work Phone: Cardiology Comment on above: Pedal edema (Primary Dx); Essential hypertension; Coronary artery disease involving yuhaaviatam coronary artery of yuhaaviatam heart without angina pectoris; Disturbance in sleep behavior Start: 08-18-2021 ambulatory Godfrey Bhardwaj i, APRN.CROWN ATTACHER Work Phone: Hematology/Oncology Comment on above: Opened In Error Start: 08-18-2021 Telephone encounter Godfrey Clayton RN Hematology/Oncology Comment on above: Research ([facility] 1820) Start: 08-17-2021 End: 08-17-2021 Emergency department patient visit DAKSHA TURNER Facility:[facility] Start: 08-16-2021 ambulatory Lalo Black MD Work Phone: Cardiology Comment on above: Elevated Blood Press ures Start: 08-13-2021 Telephone encounter Godfrey Clayton RN Hematology/Oncology Comment on above: Research ([facility] 1820) Start: 08-12-2021 Refill Godfrey Bhardwaj i, APRN.CNP Work Phone: Hematology/Oncology Comment on above: Refill Request Start: 08-12-2021 Telephone encounter Lalo mauricio MD Work Phone: Cardiology Comment on above: Blood Pressure Research ([facility] 1819) Start: 08-11-2021 Telephone encounter Hermila Ruiz RN Work Phone: Hematology/Oncology Comment on above: Research ([facility] 1819) Start: 08-08-2021 End: 08-08-2021 ambulatory [facility] Main Ca 1 Work Phone: Hematology/Oncology Comment on above: Malignant neoplasm o f right kidney, except renal pelvis (HCC) Renal cell carcinoma , unspecified laterality (HCC) (Primary Dx) Other specified diso rders of kidney and ureter Start: 08-08-2021 End: 08-09-2021 ambulatory DAKSHA TURNER Facility:[facility] Start: 08-08-2021 End: 08-09-2021 amb[address] Chair 1 Breast Work Phone: Hematology/Oncology Comment on above: Renal cell carcinoma of right kidney (HCC) (Primary Dx) Start: 08-08-2021 End: 08-08-2021 Nursing evaluation of patient and report Godfrey Clayton RN Hematology/Oncology Comment on above: Renal cell carcinoma of right kidney (HCC) (Primary Dx) Start: 08-08-2021 End: 08-08-2021 Patient encounter procedure Godfrey Ohara APRN.CROWN ATTACHER Work Phone: [facility] Start: 08-06-2021 End: 08-06-2021 ambulatory DAKSHA TURNER Facility:[facility] Start: 08-06-2021 Chart abstracting Godfrey acuña APRN.CNP Work Phone: Hematology/Oncology Start: 08-06-2021 End: 08-07-2021 ambulatory [facility]NETH [facility] Facility:[facility] Start: 08-06-2021 End: 08-06-2021 Subsequent hospital visit by physician Ct Prep Qb Radiology Comment on above: Malignant neoplasm o f kidney, unspecified laterality (HCC) [C64.9] Start: 08-06-2021 End: 08-06-2021 ambulatory Godfrey Ohara APRN.CROWN ATTACHER Work Phone: Hematology/Oncology Comment on above: Renal cell carcinoma , unspecified laterality (HCC) (Primary Dx); Hypertension, unspecified type Start: 08-06-2021 End: 08-06-2021 Nursing evaluation of patient and report Godfrey Clayton optician/Oncology Comment on above: Renal cell carcinoma of right kidney (HCC) (Primary Dx) Start: 08-06-2021 End: 08-06-2021 Patient encounter procedure Godfrey Ohara APRN.CROWN ATTACHER Work Phone: [facility] Start: 08-05-2021 End: 08-06-2021 ambulatory ATUL FUNG Facility:[facility] Start: 08-03-2021 Telephone encounter Atul Fung MD Work Phone: Cardiology Comment on above: Patient Education Start: 07-31-2021 End: 07-31-2021 [facility] Start: 07-31-2021 End: 07-31-2021 ambulatory [facility]O [facility] Facility:[facility] Start: 07-31-2021 End: 07-31-2021 Patient encounter procedure Lalo Black MD Work Phone: Cardiology Comment on above: Nonrheumatic mitral valve regurgitation (Primary Dx) Start: 07-30-2021 Telephone encounter Tayler Moss RN Cardiology Comment on above: Patient Education (t ee) Start: 07-29-2021 Telephone encounter Godfrey Clayton optician/Oncology Comment on above: Research ([facility] 1820) Start: 07-28-2021 Orders Only Godfrey Bhardwaj i, APRN.CROWN ATTACHER Work Phone: Hematology/Oncology Comment on above: Malignant neoplasm o f right kidney, except renal pelvis (HCC) (Primary Dx); Malignant neoplasm of kidney excluding renal pelvis, unspecified laterality (HCC) Start: 07-25-2021 Chart abstracting Rahul ([facility] Roberto Bennett Work Phone: Hematology/Oncology Start: 07-25-2021 Telephone encounter Godfrey Clayton optician/Oncology Comment on above: Research ([facility] 1819) Start: 07-24-2021 Telephone encounter Godfrey nixon APRN.CROWN ATTACHER Work Phone: Hematology/Oncology Comment on above: Results Start: 07-24-2021 End: 07-24-2021 ambulatory [facility] Facility[facility] Start: 07-24-2021 End: 07-25-2021 ambulatory Godfrey Ohara APRN.CROWN ATTACHER Work Phone: Hematology/Oncology Comment on above: Malignant neoplasm o f kidney excluding renal pelvis, unspecified laterality (HCC) (Primary Dx); Metastatic renal cell carcinoma, unspecified laterality (HCC) Start: 07-24-2021 End: 07-24-2021 Nursing evaluation of patient and report Godfrey Clayton RN Hematology/Oncology Comment on above: Renal cell carcinoma of right kidney (HCC) (Primary Dx) Start: 07-24-2021 End: 07-24-2021 Patient encounter procedure Godfrey Ohara APRN.CROWN ATTACHER Work Phone: [facility] Start: 07-23-2021 Telephone encounter Godfrey Clayton RN Hematology/Oncology Comment on above: Research ([facility] 1819) Start: 07-22-2021 End: 07-22-2021 ambulatory Lalo Black MD Work Phone: Cardiology Comment on above: Nonrheumatic mitral valve regurgitation (Primary Dx); Cardiomyopathy, nonischemic (HCC) Start: 07-22-2021 End: 07-22-2021 Telemedicine consultation with patient Lalo Black MD Work Phone: [facility] Start: 07-21-2021 Chart abstracting Godfrey acuña APRN.CROWN ATTACHER Work Phone: Hematology/Oncology Start: 07-21-2021 Telephone encounter Financial Navigator [facility] Work Phone: Hematology/Oncology Comment on above: Benefits Investigati on Start: 07-21-2021 End: 07-21-2021 Nursing evaluation of patient and report Godfrey Clayton optician/Oncology Comment on above: Malignant neoplasm o f [...] Start: 07-17-2021 End: 07-17-2021 Patient encounter procedure [facility] Start: 07-15-2021 End: 07-15-2021 ambulatory [facility] Facility:[facility] Start: 07-14-2021 End: 07-15-2021 Orders Only Godfrey Ohara APRN.CROWN ATTACHER Work Phone: Hematology/Oncology Comment on above: Malignant neoplasm o f kidney excluding renal pelvis, unspecified laterality (HCC) (Primary Dx); Renal cell carcinoma, unspecified laterality (HCC) Malignant neoplasm o f right kidney, except renal pelvis (HCC) (Primary Dx) Anxiety (Primary Dx) Start: 07-11-2021 Telephone encounter Godfrey Clayton RN Hematology/Oncology Comment on above: Research ([facility] 1820) Malignant neoplasm o f right kidney, except renal pelvis (HCC) (Primary Dx); Malignant neoplasm of kidney excluding renal pelvis, unspecified laterality (HCC) Start: 07-08-2021 End: 07-08-2021 ambulatory [facility] Facility:[facility] Start: 07-08-2021 End: 07-08-2021 Nursing evaluation of patient and report Godfrey Clayton RN Hematology/Oncology Comment on above: Malignant neoplasm o f kidney excluding renal pelvis, unspecified laterality (HCC) (Primary Dx) Start: 07-07-2021 Telephone encounter Godfrey Clayton RN Hematology/Oncology Comment on above: Research ([facility] 1820) Start: 07-02-2021 End: 07-02-2021 ambulatory Kenneth Chester MD Work Phone: Hematology/Oncology Comment on above: Malignant neoplasm o f kidney, unspecified laterality (HCC); Malignant neoplasm of kidney excluding renal pelvis, unspecified laterality (HCC); Chest wall mass Start: 07-02-2021 End: 07-02-2021 Patient encounter procedure Kenneth Chester MD Work Phone: [facility] Start: 07-01-2021 End: 07-01-2021 ambulatory ANNE-MARIE CHAPARRO Facility:[facility] Start: 06-30-2021 End: 07-01-2021 ambulatory JOHN GTZ Facility:[facility] Start: 06-30-2021 End: 06-30-2021 Subsequent hospital visit by physician [facility] Comment on above: Malignant neoplasm o f kidney, unspecified laterality (HCC) [C64.9] Start: 06-30-2021 End: 06-30-2021 ambulatory ADRIANA HODGE Facility:[facility] Start: 06-30-2021 End: 06-30-2021 Subsequent hospital visit by physician [facility] Start: 06-27-2021 End: 06-27-2021 ambulatory ADRIANA HODGE Facility:[facility] Start: 06-27-2021 End: 06-27-2021 Subsequent hospital [...] 06-20-2021 End: 06-20-2021 ambulatory DAWIT URBINA MD Facility:[facility] Start: 06-19-2021 End: 06-19-2021 Emergency department patient visit Family Physician Unavailable Facility:[facility] Start: 06-19-2021 End: 06-19-2021 Emergency department patient visit Family Unavailable [facility] Start: 06-30-2004 End: 11-26-2014 Patient encounter status Ekg/[facility] Work Phone: [facility] Procedures Date Procedure Procedure Detail Performing Clinician [...] above: Performed By: #### T +S #### [address] [id number] Start: 01-29-2022 Plain chest X-ray Dr. Tangela Turner Work Phone: Start: 01-27-[address] JULIENNE HERNANDEZ Comment on above: Performed By: #### C BC #### [address] [id number] Start: 01-20-2022 Plain chest X-ray Dr. Tangela [...] Comment: Speci men Type: BLOOD SPECIMENOrdering Facility: [facility] Address: [address] [place] [address] [place] [address] Performed By: #### T SCR30 ####CC MAIN BLOOD BANKCLIA [id number] [place]SON [id number] [address] [place] Start: 10-20-2021 Adult [...] Detail Author Start: 07-25-2028 Urine microalbumin profile [facility] Start: 09-23-2026 Lipid panel Lipid Screening [facility] Start: 09-23-2026 LIPID SCREEN LIPID SCREEN [facility] Start: 04-09-2025 DIABETES SCREEN DIABETES SCREEN [facility] Start: 04-09-2025 Diabetes Screening Diabetes Screenin g [facility] Start: 02-17-2025 DIABETES SCREEN DIABETES SCREEN [facility] Start: 11-13-2024 ambulatory Ambulatory Facility:[facility] Start: 11-05-2024 LIPID SCREEN LIPID SCREEN [facility] Start: 11-05-2024 PROSTATE CANCER SCRE ENING DISCUSSION PROSTATE CANCER SCREENING DISCUSSION [facility] Start: 11-05-2024 Prostate specific an tigen measurement Prostate Cancer Screening Discussion [facility] Start: 10-27-2024 DIABETES SCREEN DIABETES SCREEN [facility] Start: 10-09-2024 DIABETES SCREEN DIABETES SCREEN [facility] Start: 09-26-2024 DIABETES SCREEN DIABETES SCREEN [facility] Start: 09-11-2024 DIABETES SCREEN DIABETES SCREEN [facility] Start: 09-03-2024 DIABETES SCREEN DIABETES SCREEN [facility] Start: 09-02-2024 DIABETES SCREEN DIABETES SCREEN [facility] Start: 08-19-2024 DIABETES SCREEN DIABETES SCREEN [facility] Start: 08-17-2024 DIABETES SCREEN DIABETES SCREEN [facility] Start: 08-14-2024 Evaluation of diagno stic study results [facility] Start: 08-08-2024 DIABETES SCREEN DIABETES SCREEN [facility] Start: 08-06-2024 DIABETES SCREEN DIABETES SCREEN [facility] Start: 07-24-2024 DIABETES SCREEN DIABETES SCREEN [facility] Start: 07-21-2024 DIABETES SCREEN DIABETES SCREEN [facility] Start: 06-20-2024 DIABETES SCREEN DIABETES SCREEN [facility] Start: 11-07-2023 Covid-19 Vaccine () Covid-19 Vaccine () [facility] Start: 11-07-2023 Influenza vaccination Influenza Vacc ine (#1) [facility] Start: 02-16-2023 BP CONTROLLED (<130/80) BP CON TROLLED (<130/80) [facility] Start: 12-17-2022 Patient discharge [facility] Start: 12-16-2022 Admission procedure [facility] Start: 12-15-2022 End: 12-16-2022 [facility] Start: 12-15-2022 Continuous positive airway pressure ventilation treatment [facility] Start: 12-15-2022 Ambulation without limitation [facility] Start: 12-15-2022 Assessment of risk o f venous thromboembolism [facility] Start: 12-15-2022 Fluid restriction [facility] Start: 12-15-2022 Insertion of cathete r into peripheral vein [facility] Start: 12-15-2022 Measuring intake and output [facility] Start: 12-15-2022 Oxygen therapy [facility] Start: 12-15-2022 Providing care accor ding to standard [facility] Start: 12-15-2022 Referral to service [facility] Start: 12-15-2022 Admission procedure [facility] Start: 12-15-2022 Following clinical p athway protocol [facility] Start: 12-15-2022 Transfusion of blood product [facility] Start: 12-15-2022 Patient referral to dietitian [facility] Start: 10-20-2022 Adult depression scr eening assessment DEPRESSION SCREENING [facility] Start: 09-23-2022 BP CONTROLLED (<130/80) BP CON TROLLED (<130/80) [facility] Start: 09-23-2022 Hepatitis B surface antibody level LDL CHOLESTEROL [facility] Start: 07-06-2022 FUV, Provider: Aravind Hernandez, Status: Pen, Time: 1:40 PM FUV, Provider: Aravind Hernandez, Status: Pen, Time: 1:40 PM [id number] DO Work Phone: Start: 06-29-2022 Patient discharge [facility] Start: 06-28-2022 Following clinical p athway protocol [facility] Start: 06-28-2022 Assessment of risk o f venous thromboembolism [facility] Start: 06-28-2022 Continuous positive airway pressure ventilation treatment [facility] Start: 06-28-2022 Inhalation therapy procedure [facility] Start: 06-28-2022 Insertion of cathete r into peripheral vein [facility] Start: 06-28-2022 Introduction of urin rebecca catheter [facility] Start: 06-28-2022 Measuring intake and output [facility] Start: 06-28-2022 Oxygen therapy [facility] Start: 06-28-2022 End: 06-28-2022 Patient referral to dietitian [facility] Start: 06-28-2022 Providing care accor ding to standard [facility] Start: 06-28-2022 Provision of activit y privileges [facility] Start: 06-28-2022 Referral to service [facility] Start: 06-28-2022 End: 06-28-2022 [facility] Start: 06-28-2022 Verification routine [facility] Start: 06-28-2022 Admission procedure [facility] Start: 06-27-2022 Troponin I measurement [facility] Start: 06-27-2022 [facility] Start: 06-20-2022 ANNUAL PCP TEAM ELECTROMEDICAL SERVICE ENGINEER SEFERINO DISEASE VISIT ANNUAL PCP TEAM CHRONIC DISEASE VISIT [facility] Start: 05-27-2022 Patient referral [facility] Work Phone: Start: 05-20-2022 Patient discharge [facility] Start: 05-19-2022 Continuous positive airway pressure ventilation treatment [facility] Start: 05-18-2022 Dual pressure sponta neous ventilation support [facility] Start: 05-18-2022 Following clinical p athway protocol [facility] Start: 05-18-2022 Assessment of risk o f venous thromboembolism [facility] Start: 05-18-2022 Continuous pulse oximetry [facility] [facility] Start: 05-18-2022 Insertion of cathete r into peripheral vein [facility] Start: 05-18-2022 Measuring intake and output [facility] Start: 05-18-2022 Oxygen therapy [facility] Start: 05-18-2022 Providing care accor ding to standard [facility] Start: 05-18-2022 Provision of activit y privileges [facility] Start: 05-18-2022 [facility] Start: 05-18-2022 Verification routine [facility] Start: 05-18-2022 Admission procedure [facility] Start: 05-18-2022 [facility] Start: 05-18-2022 Patient referral to dietitian [facility] Start: 04-17-2022 Prothrombin time [facility] Start: 04-16-2022 Patient discharge [facility] Start: 04-16-2022 Prothrombin time [facility] Start: 04-16-2022 Oxygen therapy [facility] Start: 04-15-2022 [facility] Start: 04-15-2022 Prothrombin time [facility] Start: 04-14-2022 Continuous pulse oximetry [facility] Start: 04-14-2022 [facility] Start: 04-14-2022 Application of intermittent pneumatic compression device [facility] Start: 04-14-2022 Following clinical p athway protocol [facility] Start: 04-14-2022 Chemotherapy care management [facility] Start: 04-14-2022 Elevation of affecte d extremity [facility] Start: 04-14-2022 Fluid restriction [facility] Start: 04-14-2022 Notification of physician [facility] Start: 04-14-2022 Patient education [facility] Start: 04-14-2022 End: 04-14-2022 [facility] Start: 04-14-2022 Continuous positive airway pressure ventilation treatment [facility] Start: 04-13-2022 Admission procedure [facility] Start: 03-25-2022 End: 05-25-2022 CBC W Auto Differential panel - Blood CBC + DIFF Lab Routine Renal cell carcinoma of right kidney (HCC) Expected: 03/25/2022, Expires: 05/25/2022 [facility] Work Phone: Comment on above: Expected: 03/25/2022 , Expires: 05/25/2022 Start: 03-25-2022 End: 05-25-2022 Comprehensive metabolic 2000 panel - Serum or Plasma COMP METABOLIC PANEL Lab Routine Renal cell carcinoma of right kidney (HCC) Expected: 03/25/2022, Expires: 05/25/2022 [facility] Work Phone: Comment on above: Expected: 03/25/2022 , Expires: 05/25/2022 Start: 03-25-2022 End: 05-25-2022 Thyrotropin [Units/volume] in Serum or Plasma TSH BLD Lab Routine Renal cell carcinoma of right kidney (HCC) Expected: 03/25/2022, Expires: 05/25/2022 [facility] Work Phone: Comment on above: Expected: 03/25/2022 , Expires: 05/25/2022 Start: 03-08-2022 DEPRESSION ASSESSMENT DEPRESSION ASS ESSMENT [facility] Start: 02-16-2022 End: 04-18-2022 Basic metabolic 2000 panel - Serum or Plasma BASIC METABOLIC PNL Lab Routine Acute decompensated heart failure (HCC) Paroxysmal atrial fibrillation (HCC) Expected: 02/16/2022, Expires: 04/18/2022 [facility] Work Phone: Comment on above: Expected: 02/16/2022 , Expires: 04/18/2022 Start: 02-08-2022 End: 02-09-2023 Bisacodyl Rectal 10 mg Suppository Daily PRN ; Suppository (DULCOLAX)DOSE = 10 mg Rectal Daily, PRN Constipation Start: 08-Feb-2022 End: 08-Feb-2023 Ordered: 08-Feb-2022 Deep Tamez [facility] Start: 02-06-2022 End: 02-07-2023 [facility] Comment on above: Minimize narcotics May be [...] reaches 100 mg/dL or greater. Start: 02-06-2022 [facility], Provider: Aravind Hernandze, Status: Pen, Time: 9:30 AM [facility], Provider: Aravind Hernandez, Status: Pen, Time: 9:30 AM [id number] DO Work Phone: Start: 01-29-2022 Chemotherapy care management [facility] Start: 01-20-2022 Plain chest X-ray Chest 1 View (Portable) [facility] Work Phone: Start: 01-20-2022 XR Chest Single view [facility] Work Phone: Start: 12-30-2021 End: 03-01-2022 aPTT in Platelet poor plasma by Coagulation assay ACTIVATED PTT Lab Routine Renal cell carcinoma of right kidney (HCC) Expected: 12/30/2021 (Approximate), Expires: 03/01/2022 [facility] Work Phone: Comment on above: Expected: 12/30/2021 (Approximate), Expires: 03/01/2022 Start: 12-30-2021 End: 03-01-2022 CBC panel - Blood by Automated count CBC Lab Routine Renal cell carcinoma of right kidney (HCC) Expected: 12/30/2021 (Approximate), Expires: 03/01/2022 [facility] Work Phone: Comment on above: Expected: 12/30/2021 (Approximate), Expires: 03/01/2022 Start: 12-30-2021 End: 03-01-2022 Comprehensive metabolic 2000 panel - Serum or Plasma COMP METABOLIC PANEL Lab Routine Renal cell carcinoma of right kidney (HCC) Expected: 12/30/2021 (Approximate), Expires: 03/01/2022 [facility] Work Phone: Comment on above: Expected: 12/30/2021 (Approximate), Expires: 03/01/2022 Start: 12-30-2021 End: 03-01-2022 CONFIRM BLOOD TYPE CONFIRM BLOOD TYPE Blood Bank Routine Renal cell carcinoma of right kidney (HCC) Expected: 12/30/2021 (Approximate), Expires: 03/01/2022 [facility] Work Phone: Comment on above: Expected: 12/30/2021 (Approximate), Expires: 03/01/2022 Start: 12-30-2021 End: 03-01-2022 PT panel - Platelet poor plasma by Coagulation assay PROTHROMBIN TIME/PT Lab Routine Renal cell carcinoma of right kidney (HCC) Expected: 12/30/2021 (Approximate), Expires: 03/01/2022 [facility] Work Phone: Comment on above: Expected: 12/30/2021 (Approximate), Expires: 03/01/2022 Start: 12-30-2021 End: 12-30-2022 SARS-CoV-2 (COVID-19) RNA [Presence] in Respiratory specimen by [facility] with probe detection PRE-PROCEDURE & PRE-OPERATIVE COVID Microbiology Routine Renal cell carcinoma of right kidney (HCC) Expected: 12/30/2021, Expires: 12/30/2022 [facility] Work Phone: Comment on above: Expected: 12/30/2021 , Expires: 12/30/2022 Start: 12-30-2021 End: 03-01-2022 TYPE AND SCREEN,30 DAY TYPE AND SCREEN,30 DAY Blood Bank Routine Renal cell carcinoma of right kidney (HCC) Expected: 12/30/2021 (Approximate), Expires: 03/01/2022 [facility] Work Phone: Comment on above: Expected: 12/30/2021 (Approximate), Expires: 03/01/2022 Start: 12-09-2021 Patient discharge [facility] Work Phone: Start: 12-08-2021 Inhalation therapy procedure [facility] Work Phone: Start: 12-07-2021 Chemotherapy care management [facility] Work Phone: Start: 12-07-2021 Ambulation without limitation [facility] Work Phone: Start: 12-07-2021 Assessment of risk o f venous thromboembolism [facility] Work Phone: Start: 12-07-2021 Catheterization of vein [facility] Work Phone: Start: 12-07-2021 Insertion of cathete r into peripheral vein [facility] Work Phone: Start: 12-07-2021 Measuring intake and output [facility] Work Phone: Start: 12-07-2021 Providing care accor ding to standard [facility] Work Phone: Start: 12-07-2021 [facility] Work Phone: Start: 12-07-2021 Verification routine [facility] Work Phone: Start: 12-07-2021 Admission procedure [facility] Work Phone: Start: 12-07-2021 Following clinical p athway protocol [facility] Work Phone: Start: 12-07-2021 Troponin I measurement [facility] Work Phone: Start: 12-06-2021 Influenza vaccination Influenza Vacc ine (#1) [facility] Start: 11-06-2021 Influenza vaccination [facility] Start: 10-16-2021 End: 10-17-2021 aPTT in Platelet poor plasma by Coagulation assay ACTIVATED PTT Lab STAT Malignant neoplasm of right kidney, except renal pelvis (HCC) Expected: 10/16/2021, Expires: 10/17/2021 [facility] Work Phone: Comment on above: Expected: 10/16/2021 , Expires: 10/17/2021 Start: 10-16-2021 End: 10-17-2021 CBC W Auto Differential panel - Blood CBC + DIFF Lab STAT Malignant neoplasm of right kidney, except renal pelvis (HCC) Expected: 10/16/2021, Expires: 10/17/2021 [facility] Work Phone: Comment on above: Expected: 10/16/2021 , Expires: 10/17/2021 Start: 10-16-2021 End: 10-17-2021 Comprehensive metabolic 2000 panel - Serum or Plasma COMP METABOLIC PANEL Lab STAT Malignant neoplasm of right kidney, except renal pelvis (HCC) Expected: 10/16/2021, Expires: 10/17/2021 [facility] Work Phone: Comment on above: Expected: 10/16/2021 , Expires: 10/17/2021 Start: 10-16-2021 End: 09-26-2022 Ct abdomen & pelvis w/contrast material CT ABD/PEL W IVCON Radiology Routine Malignant neoplasm of right kidney, except renal pelvis (HCC) Expected: 10/16/2021, Expires: 09/26/2022 [facility] Work Phone: Comment on above: Expected: 10/16/2021 , Expires: 09/26/2022 Start: 10-16-2021 End: 09-26-2022 Ct thorax w/contrast material CT CHEST W IVCON Radiology Routine Malignant neoplasm of right kidney, except renal pelvis (HCC) Expected: 10/16/2021, Expires: 09/26/2022 [facility] Work Phone: Comment on above: Expected: 10/16/2021 , Expires: 09/26/2022 Start: 10-16-2021 End: 10-17-2021 Lactate dehydrogenase [Enzymatic activity/volume] in Serum or Plasma LD LACTATE DEHYDRO Lab STAT Malignant neoplasm of right kidney, except renal pelvis (HCC) Expected: 10/16/2021, Expires: 10/17/2021 [facility] Work Phone: Comment on above: Expected: 10/16/2021 , Expires: 10/17/2021 Start: 10-16-2021 End: 10-17-2021 Magnesium [Mass/volume] in Serum or Plasma MAGNESIUM BLD Lab STAT Malignant neoplasm of right kidney, except renal pelvis (HCC) Expected: 10/16/2021, Expires: 10/17/2021 [facility] Work Phone: Comment on above: Expected: 10/16/2021 , Expires: 10/17/2021 Start: 10-16-2021 End: 10-17-2021 Phosphate [Mass/volume] in Serum or Plasma PHOSPHORUS INORGANIC Lab STAT Malignant neoplasm of right kidney, except renal pelvis (HCC) Expected: 10/16/2021, Expires: 10/17/2021 [facility] Work Phone: Comment on above: Expected: 10/16/2021 , Expires: 10/17/2021 Start: 10-16-2021 End: 10-17-2021 PT panel - Platelet poor plasma by Coagulation assay PROTHROMBIN TIME/PT Lab STAT Malignant neoplasm of right kidney, except renal pelvis (HCC) Expected: 10/16/2021, Expires: 10/17/2021 [facility] Work Phone: Comment on above: Expected: 10/16/2021 , Expires: 10/17/2021 Start: 10-16-2021 End: 10-17-2021 Urate [Mass/volume] in Serum or Plasma URIC ACID BLOOD Lab STAT Malignant neoplasm of right kidney, except renal pelvis (HCC) Expected: 10/16/2021, Expires: 10/17/2021 [facility] Work Phone: Comment on above: Expected: 10/16/2021 , Expires: 10/17/2021 Start: 10-02-2021 End: 10-03-2021 aPTT in Platelet poor plasma by Coagulation assay ACTIVATED PTT Lab STAT Malignant neoplasm of right kidney, except renal pelvis (HCC) Expected: 10/02/2021, Expires: 10/03/2021 [facility] Work Phone: Comment on above: Expected: 10/02/2021 , Expires: 10/03/2021 Start: 10-02-2021 End: 10-03-2021 CBC W Auto Differential panel - Blood CBC + DIFF Lab STAT Malignant neoplasm of right kidney, except renal pelvis (HCC) Expected: 10/02/2021, Expires: 10/03/2021 [facility] Work Phone: Comment on above: Expected: 10/02/2021 , Expires: 10/03/2021 Start: 10-02-2021 End: 10-03-2021 CLINICAL TRIAL DRAW CLINICAL TRIAL DRAW Lab STAT Malignant neoplasm of right kidney, except renal pelvis (HCC) Expected: 10/02/2021, Expires: 10/03/2021 [facility] Work Phone: Comment on above: Expected: 10/02/2021 , Expires: 10/03/2021 Start: 10-02-2021 End: 10-03-2021 Comprehensive metabolic 2000 panel - Serum or Plasma COMP METABOLIC PANEL Lab STAT Malignant neoplasm of right kidney, except renal pelvis (HCC) Expected: 10/02/2021, Expires: 10/03/2021 [facility] Work Phone: Comment on above: Expected: 10/02/2021 , Expires: 10/03/2021 Start: 10-02-2021 End: 10-03-2021 Lactate dehydrogenase [Enzymatic activity/volume] in Serum or Plasma LD LACTATE DEHYDRO Lab STAT Malignant neoplasm of right kidney, except renal pelvis (HCC) Expected: 10/02/2021, Expires: 10/03/2021 [facility] Work Phone: Comment on above: Expected: 10/02/2021 , Expires: 10/03/2021 Start: 10-02-2021 End: 10-03-2021 Magnesium [Mass/volume] in Serum or Plasma MAGNESIUM BLD Lab STAT Malignant neoplasm of right kidney, except renal pelvis (HCC) Expected: 10/02/2021, Expires: 10/03/2021 [facility] Work Phone: Comment on above: Expected: 10/02/2021 , Expires: 10/03/2021 Start: 10-02-2021 End: 10-03-2021 Phosphate [Mass/volume] in Serum or Plasma PHOSPHORUS INORGANIC Lab STAT Malignant neoplasm of right kidney, except renal pelvis (HCC) Expected: 10/02/2021, Expires: 10/03/2021 [facility] Work Phone: Comment on above: Expected: 10/02/2021 , Expires: 10/03/2021 Start: 10-02-2021 End: 10-03-2021 PT panel - Platelet poor plasma by Coagulation assay PROTHROMBIN TIME/PT Lab STAT Malignant neoplasm of right kidney, except renal pelvis (HCC) Expected: 10/02/2021, Expires: 10/03/2021 [facility] Work Phone: Comment on above: Expected: 10/02/2021 , Expires: 10/03/2021 Start: 10-02-2021 End: 10-03-2021 Thyrotropin [Units/volume] in Serum or Plasma TSH BLD Lab STAT Malignant neoplasm of right kidney, except renal pelvis (HCC) Expected: 10/02/2021, Expires: 10/03/2021 [facility] Work Phone: Comment on above: Expected: 10/02/2021 , Expires: 10/03/2021 Start: 10-02-2021 End: 10-03-2021 Thyroxine (T4) free [Mass/volume] in Serum or Plasma T4 FREE/FREE THYROX Lab STAT Malignant neoplasm of right kidney, except renal pelvis (HCC) Expected: 10/02/2021, Expires: 10/03/2021 [facility] Work Phone: Comment on above: Expected: 10/02/2021 , Expires: 10/03/2021 Start: 10-02-2021 End: 10-03-2021 Triiodothyronine (T3) Free [Mass/volume] in Serum or Plasma T3 FREE BLD Lab STAT Malignant neoplasm of right kidney, except renal pelvis (HCC) Expected: 10/02/2021, Expires: 10/03/2021 [facility] Work Phone: Comment on above: Expected: 10/02/2021 , Expires: 10/03/2021 Start: 10-02-2021 End: 10-03-2021 Urate [Mass/volume] in Serum or Plasma URIC ACID BLOOD Lab STAT Malignant neoplasm of right kidney, except renal pelvis (HCC) Expected: 10/02/2021, Expires: 10/03/2021 [facility] Work Phone: Comment on above: Expected: 10/02/2021 , Expires: 10/03/2021 Start: 08-19-2021 End: 08-20-2021 aPTT in Platelet poor plasma by Coagulation assay ACTIVATED PTT Lab STAT Malignant neoplasm of right kidney, except renal pelvis (HCC) Expected: 08/19/2021, Expires: 08/20/2021 [facility] Work Phone: Comment on above: Expected: 08/19/2021 , Expires: 08/20/2021 Start: 08-19-2021 End: 08-20-2021 CBC W Auto Differential panel - Blood CBC + DIFF Lab STAT Malignant neoplasm of right kidney, except renal pelvis (HCC) Expected: 08/19/2021, Expires: 08/20/2021 [facility] Work Phone: Comment on above: Expected: 08/19/2021 , Expires: 08/20/2021 Start: 08-19-2021 End: 08-20-2021 Comprehensive metabolic 2000 panel - Serum or Plasma COMP METABOLIC PANEL Lab STAT Malignant neoplasm of right kidney, except renal pelvis (HCC) Expected: 08/19/2021, Expires: 08/20/2021 [facility] Work Phone: Comment on above: Expected: 08/19/2021 , Expires: 08/20/2021 Start: 08-19-2021 End: 08-20-2021 Lactate dehydrogenase [Enzymatic activity/volume] in Serum or Plasma LD LACTATE DEHYDRO Lab STAT Malignant neoplasm of right kidney, except renal pelvis (HCC) Expected: 08/19/2021, Expires: 08/20/2021 [facility] Work Phone: Comment on above: Expected: 08/19/2021 , Expires: 08/20/2021 Start: 08-19-2021 End: 08-20-2021 Magnesium [Mass/volume] in Serum or Plasma MAGNESIUM BLD Lab STAT Malignant neoplasm of right kidney, except renal pelvis (HCC) Expected: 08/19/2021, Expires: 08/20/2021 [facility] Work Phone: Comment on above: Expected: 08/19/2021 , Expires: 08/20/2021 Start: 08-19-2021 End: 08-20-2021 Phosphate [Mass/volume] in Serum or Plasma PHOSPHORUS INORGANIC Lab STAT Malignant neoplasm of right kidney, except renal pelvis (HCC) Expected: 08/19/2021, Expires: 08/20/2021 [facility] Work Phone: Comment on above: Expected: 08/19/2021 , Expires: 08/20/2021 Start: 08-19-2021 End: 08-20-2021 PT panel - Platelet poor plasma by Coagulation assay PROTHROMBIN TIME/PT Lab STAT Malignant neoplasm of right kidney, except renal pelvis (HCC) Expected: 08/19/2021, Expires: 08/20/2021 [facility] Work Phone: Comment on above: Expected: 08/19/2021 , Expires: 08/20/2021 Start: 08-19-2021 End: 08-20-2021 Urate [Mass/volume] in Serum or Plasma URIC ACID BLOOD Lab STAT Malignant neoplasm of right kidney, except renal pelvis (HCC) Expected: 08/19/2021, Expires: 08/20/2021 [facility] Work Phone: Comment on above: Expected: 08/19/2021 , Expires: 08/20/2021 Start: 08-07-2021 End: 08-08-2021 aPTT in Platelet poor plasma by Coagulation assay ACTIVATED PTT Lab STAT Malignant neoplasm of right kidney, except renal pelvis (HCC) Expected: 08/07/2021, Expires: 08/08/2021 [facility] Work Phone: Comment on above: Expected: 08/07/2021 , Expires: 08/08/2021 Start: 08-07-2021 End: 08-08-2021 CBC W Auto Differential panel - Blood CBC + DIFF Lab STAT Malignant neoplasm of right kidney, except renal pelvis (HCC) Expected: 08/07/2021, Expires: 08/08/2021 [facility] Work Phone: Comment on above: Expected: 08/07/2021 , Expires: 08/08/2021 Start: 08-07-2021 End: 08-08-2021 CLINICAL TRIAL DRAW CLINICAL TRIAL DRAW Lab STAT Malignant neoplasm of right kidney, except renal pelvis (HCC) Expected: 08/07/2021, Expires: 08/08/2021 [facility] Work Phone: Comment on above: Expected: 08/07/2021 , Expires: 08/08/2021 Start: 08-07-2021 End: 08-08-2021 Comprehensive metabolic 2000 panel - Serum or Plasma COMP METABOLIC PANEL Lab STAT Malignant neoplasm of right kidney, except renal pelvis (HCC) Expected: 08/07/2021, Expires: 08/08/2021 [facility] Work Phone: Comment on above: Expected: 08/07/2021 , Expires: 08/08/2021 Start: 08-07-2021 End: 08-08-2021 Lactate dehydrogenase [Enzymatic activity/volume] in Serum or Plasma LD LACTATE DEHYDRO Lab STAT Malignant neoplasm of right kidney, except renal pelvis (HCC) Expected: 08/07/2021, Expires: 08/08/2021 [facility] Work Phone: Comment on above: Expected: 08/07/2021 , Expires: 08/08/2021 Start: 08-07-2021 End: 08-08-2021 Magnesium [Mass/volume] in Serum or Plasma MAGNESIUM BLD Lab STAT Malignant neoplasm of right kidney, except renal pelvis (HCC) Expected: 08/07/2021, Expires: 08/08/2021 [facility] Work Phone: Comment on above: Expected: 08/07/2021 , Expires: 08/08/2021 Start: 08-07-2021 End: 08-08-2021 Phosphate [Mass/volume] in Serum or Plasma PHOSPHORUS INORGANIC Lab STAT Malignant neoplasm of right kidney, except renal pelvis (HCC) Expected: 08/07/2021, Expires: 08/08/2021 [facility] Work Phone: Comment on above: Expected: 08/07/2021 , Expires: 08/08/2021 Start: 08-07-2021 End: 08-08-2021 PT panel - Platelet poor plasma by Coagulation assay PROTHROMBIN TIME/PT Lab STAT Malignant neoplasm of right kidney, except renal pelvis (HCC) Expected: 08/07/2021, Expires: 08/08/2021 [facility] Work Phone: Comment on above: Expected: 08/07/2021 , Expires: 08/08/2021 Start: 08-07-2021 End: 08-08-2021 Urate [Mass/volume] in Serum or Plasma URIC ACID BLOOD Lab STAT Malignant neoplasm of right kidney, except renal pelvis (HCC) Expected: 08/07/2021, Expires: 08/08/2021 [facility] Work Phone: Comment on above: Expected: 08/07/2021 , Expires: 08/08/2021 Start: 08-05-2021 End: 08-06-2021 aPTT in Platelet poor plasma by Coagulation assay ACTIVATED PTT Lab STAT Malignant neoplasm of right kidney, except renal pelvis (HCC) Expected: 08/05/2021, Expires: 08/06/2021 [facility] Work Phone: Comment on above: Expected: 08/05/2021 , Expires: 08/06/2021 Start: 08-05-2021 End: 08-06-2021 CBC W Auto Differential panel - Blood CBC + DIFF Lab STAT Malignant neoplasm of right kidney, except renal pelvis (HCC) Expected: 08/05/2021, Expires: 08/06/2021 [facility] Work Phone: Comment on above: Expected: 08/05/2021 , Expires: 08/06/2021 Start: 08-05-2021 End: 08-06-2021 Comprehensive metabolic 2000 panel - Serum or Plasma COMP METABOLIC PANEL Lab STAT Malignant neoplasm of right kidney, except renal pelvis (HCC) Expected: 08/05/2021, Expires: 08/06/2021 [facility] Work Phone: Comment on above: Expected: 08/05/2021 , Expires: 08/06/2021 Start: 08-05-2021 End: 08-06-2021 Lactate dehydrogenase [Enzymatic activity/volume] in Serum or Plasma LD LACTATE DEHYDRO Lab STAT Malignant neoplasm of right kidney, except renal pelvis (HCC) Expected: 08/05/2021, Expires: 08/06/2021 [facility] Work Phone: Comment on above: Expected: 08/05/2021 , Expires: 08/06/2021 Start: 08-05-2021 End: 08-06-2021 Magnesium [Mass/volume] in Serum or Plasma MAGNESIUM BLD Lab STAT Malignant neoplasm of right kidney, except renal pelvis (HCC) Expected: 08/05/2021, Expires: 08/06/2021 [facility] Work Phone: Comment on above: Expected: 08/05/2021 , Expires: 08/06/2021 Start: 08-05-2021 End: 08-06-2021 Phosphate [Mass/volume] in Serum or Plasma PHOSPHORUS INORGANIC Lab STAT Malignant neoplasm of right kidney, except renal pelvis (HCC) Expected: 08/05/2021, Expires: 08/06/2021 [facility] Work Phone: Comment on above: Expected: 08/05/2021 , Expires: 08/06/2021 Start: 08-05-2021 End: 08-06-2021 PT panel - Platelet poor plasma by Coagulation assay PROTHROMBIN TIME/PT Lab STAT Malignant neoplasm of right kidney, except renal pelvis (HCC) Expected: 08/05/2021, Expires: 08/06/2021 [facility] Work Phone: Comment on above: Expected: 08/05/2021 , Expires: 08/06/2021 Start: 08-05-2021 End: 08-06-2021 T3 FREE BLD T3 FREE BLD Lab STAT Malignant neoplasm of right kidney, except renal pelvis (HCC) Expected: 08/05/2021, Expires: 08/06/2021 [facility] Work Phone: Comment on above: Expected: 08/05/2021 , Expires: 08/06/2021 Start: 08-05-2021 End: 08-06-2021 T4 FREE/FREE THYROX T4 FREE/FREE THYROX Lab STAT Malignant neoplasm of right kidney, except renal pelvis (HCC) Expected: 08/05/2021, Expires: 08/06/2021 [facility] Work Phone: Comment on above: Expected: 08/05/2021 , Expires: 08/06/2021 Start: 08-05-2021 End: 08-06-2021 Thyrotropin [Units/volume] in Serum or Plasma TSH BLD Lab STAT Malignant neoplasm of right kidney, except renal pelvis (HCC) Expected: 08/05/2021, Expires: 08/06/2021 [facility] Work Phone: Comment on above: Expected: 08/05/2021 , Expires: 08/06/2021 Start: 08-05-2021 End: 08-06-2021 Urate [Mass/volume] in Serum or Plasma URIC ACID BLOOD Lab STAT Malignant neoplasm of right kidney, except renal pelvis (HCC) Expected: 08/05/2021, Expires: 08/06/2021 [facility] Work Phone: Comment on above: Expected: 08/05/2021 , Expires: 08/06/2021 Start: 07-31-2021 End: 09-30-2021 CBC W Auto Differential panel - Blood CBC + DIFF Lab Routine Renal cell carcinoma, unspecified laterality (HCC) Expected: 07/31/2021, Expires: 09/30/2021 [facility] Work Phone: Comment on above: Expected: 07/31/2021 , Expires: 09/30/2021 Start: 07-31-2021 End: 09-30-2021 Comprehensive metabolic 2000 panel - Serum or Plasma COMP METABOLIC PANEL Lab Routine Renal cell carcinoma, unspecified laterality (HCC) Expected: 07/31/2021, Expires: 09/30/2021 [facility] Work Phone: Comment on above: Expected: 07/31/2021 , Expires: 09/30/2021 Start: 07-24-2021 End: 07-25-2021 aPTT in Platelet poor plasma by Coagulation assay ACTIVATED PTT Lab STAT Malignant neoplasm of right kidney, except renal pelvis (HCC) Expected: 07/24/2021, Expires: 07/25/2021 [facility] Work Phone: Comment on above: Expected: 07/24/2021 , Expires: 07/25/2021 Start: 07-24-2021 End: 07-25-2021 CBC W Auto Differential panel - Blood CBC + DIFF Lab STAT Malignant neoplasm of right kidney, except renal pelvis (HCC) Expected: 07/24/2021, Expires: 07/25/2021 [facility] Work Phone: Comment on above: Expected: 07/24/2021 , Expires: 07/25/2021 Start: 07-24-2021 End: 07-25-2021 CLINICAL TRIAL DRAW CLINICAL TRIAL DRAW Lab STAT Malignant neoplasm of right kidney, except renal pelvis (HCC) Expected: 07/24/2021, Expires: 07/25/2021 [facility] Work Phone: Comment on above: Expected: 07/24/2021 , Expires: 07/25/2021 Start: 07-24-2021 End: 07-25-2021 Comprehensive metabolic 2000 panel - Serum or Plasma COMP METABOLIC PANEL Lab STAT Malignant neoplasm of right kidney, except renal pelvis (HCC) Expected: 07/24/2021, Expires: 07/25/2021 [facility] Work Phone: Comment on above: Expected: 07/24/2021 , Expires: 07/25/2021 Start: 07-24-2021 End: 07-25-2021 Lactate dehydrogenase [Enzymatic activity/volume] in Serum or Plasma LD LACTATE DEHYDRO Lab STAT Malignant neoplasm of right kidney, except renal pelvis (HCC) Expected: 07/24/2021, Expires: 07/25/2021 [facility] Work Phone: Comment on above: Expected: 07/24/2021 , Expires: 07/25/2021 Start: 07-24-2021 End: 07-25-2021 Magnesium [Mass/volume] in Serum or Plasma MAGNESIUM BLD Lab STAT Malignant neoplasm of right kidney, except renal pelvis (HCC) Expected: 07/24/2021, Expires: 07/25/2021 [facility] Work Phone: Comment on above: Expected: 07/24/2021 , Expires: 07/25/2021 Start: 07-24-2021 End: 07-25-2021 Phosphate [Mass/volume] in Serum or Plasma PHOSPHORUS INORGANIC Lab STAT Malignant neoplasm of right kidney, except renal pelvis (HCC) Expected: 07/24/2021, Expires: 07/25/2021 [facility] Work Phone: Comment on above: Expected: 07/24/2021 , Expires: 07/25/2021 Start: 07-24-2021 End: 07-25-2021 PT panel - Platelet poor plasma by Coagulation assay PROTHROMBIN TIME/PT Lab STAT Malignant neoplasm of right kidney, except renal pelvis (HCC) Expected: 07/24/2021, Expires: 07/25/2021 [facility] Work Phone: Comment on above: Expected: 07/24/2021 , Expires: 07/25/2021 Start: 07-24-2021 End: 07-25-2021 Urate [Mass/volume] in Serum or Plasma URIC ACID BLOOD Lab STAT Malignant neoplasm of right kidney, except renal pelvis (HCC) Expected: 07/24/2021, Expires: 07/25/2021 [facility] Work Phone: Comment on above: Expected: 07/24/2021 , Expires: 07/25/2021 Start: 07-15-2021 End: 07-16-2021 aPTT in Platelet poor plasma by Coagulation assay ACTIVATED PTT Lab STAT Malignant neoplasm of right kidney, except renal pelvis (HCC) Expected: 07/15/2021, Expires: 07/16/2021 [facility] Work Phone: Comment on above: Expected: 07/15/2021 , Expires: 07/16/2021 Start: 07-15-2021 End: 07-16-2021 CBC W Auto Differential panel - Blood CBC + DIFF Lab STAT Malignant neoplasm of right kidney, except renal pelvis (HCC) Expected: 07/15/2021, Expires: 07/16/2021 [facility] Work Phone: Comment on above: Expected: 07/15/2021 , Expires: 07/16/2021 Start: 07-15-2021 End: 07-16-2021 Comprehensive metabolic 2000 panel - Serum or Plasma COMP METABOLIC PANEL Lab STAT Malignant neoplasm of right kidney, except renal pelvis (HCC) Expected: 07/15/2021, Expires: 07/16/2021 [facility] Work Phone: Comment on above: Expected: 07/15/2021 , Expires: 07/16/2021 Start: 07-15-2021 End: 07-16-2021 Lactate dehydrogenase [Enzymatic activity/volume] in Serum or Plasma LD LACTATE DEHYDRO Lab STAT Malignant neoplasm of right kidney, except renal pelvis (HCC) Expected: 07/15/2021, Expires: 07/16/2021 [facility] Work Phone: Comment on above: Expected: 07/15/2021 , Expires: 07/16/2021 Start: 07-15-2021 End: 07-16-2021 Magnesium [Mass/volume] in Serum or Plasma MAGNESIUM BLD Lab STAT Malignant neoplasm of right kidney, except renal pelvis (HCC) Expected: 07/15/2021, Expires: 07/16/2021 [facility] Work Phone: Comment on above: Expected: 07/15/2021 , Expires: 07/16/2021 Start: 07-15-2021 End: 07-16-2021 Phosphate [Mass/volume] in Serum or Plasma PHOSPHORUS INORGANIC Lab STAT Malignant neoplasm of right kidney, except renal pelvis (HCC) Expected: 07/15/2021, Expires: 07/16/2021 [facility] Work Phone: Comment on above: Expected: 07/15/2021 , Expires: 07/16/2021 Start: 07-15-2021 End: 07-16-2021 PT panel - Platelet poor plasma by Coagulation assay PROTHROMBIN TIME/PT Lab STAT Malignant neoplasm of right kidney, except renal pelvis (HCC) Expected: 07/15/2021, Expires: 07/16/2021 [facility] Work Phone: Comment on above: Expected: 07/15/2021 , Expires: 07/16/2021 Start: 07-15-2021 End: 07-16-2021 T3 FREE BLD T3 FREE BLD Lab STAT Malignant neoplasm of right kidney, except renal pelvis (HCC) Expected: 07/15/2021, Expires: 07/16/2021 [facility] Work Phone: Comment on above: Expected: 07/15/2021 , Expires: 07/16/2021 Start: 07-15-2021 End: 07-16-2021 T4 FREE/FREE THYROX T4 FREE/FREE THYROX Lab STAT Malignant neoplasm of right kidney, except renal pelvis (HCC) Expected: 07/15/2021, Expires: 07/16/2021 [facility] Work Phone: Comment on above: Expected: 07/15/2021 , Expires: 07/16/2021 Start: 07-15-2021 End: 07-16-2021 Thyrotropin [Units/volume] in Serum or Plasma TSH BLD Lab STAT Malignant neoplasm of right kidney, except renal pelvis (HCC) Expected: 07/15/2021, Expires: 07/16/2021 [facility] Work Phone: Comment on above: Expected: 07/15/2021 , Expires: 07/16/2021 Start: 07-15-2021 End: 07-16-2021 Urate [Mass/volume] in Serum or Plasma URIC ACID BLOOD Lab STAT Malignant neoplasm of right kidney, except renal pelvis (HCC) Expected: 07/15/2021, Expires: 07/16/2021 [facility] Work Phone: Comment on above: Expected: 07/15/2021 , Expires: 07/16/2021 Start: 06-24-2021 End: 08-24-2021 PT panel - Platelet poor plasma by Coagulation assay PROTHROMBIN TIME/PT Lab STAT Mass of right chest wall Expected: 06/24/2021, Expires: 08/24/2021 [facility] Work Phone: Comment on above: Expected: 06/24/2021 , Expires: 08/24/2021 Start: 06-23-2021 End: 07-23-2022 Bone &/joint imaging whole body NM BONE WHOLE BODY Radiology Routine Malignant neoplasm of kidney, unspecified laterality (HCC) Malignant neoplasm of kidney excluding renal pelvis, unspecified laterality (HCC) Expected: 06/23/2021 (Approximate), Expires: 07/23/2022 [facility] Work Phone: Comment on above: Expected: 06/23/2021 (Approximate), Expires: 07/23/2022 Start: 06-23-2021 End: 07-23-2022 Ct abdomen & pelvis w/contrast material CT ABD/PEL W IVCON Radiology Routine Malignant neoplasm of kidney, unspecified laterality (HCC) Malignant neoplasm of kidney excluding renal pelvis, unspecified laterality (HCC) Expected: 06/23/2021 (Approximate), Expires: 07/23/2022 [facility] Work Phone: Comment on above: Expected: 06/23/2021 (Approximate), Expires: 07/23/2022 Start: 06-23-2021 End: 07-23-2022 Ct abdomen & pelvis w/o contrast material CT ABD/PEL WO IVCON Radiology Routine Malignant neoplasm of kidney, unspecified laterality (HCC) Malignant neoplasm of kidney excluding renal pelvis, unspecified laterality (HCC) Expected: 06/23/2021, Expires: 07/23/2022 [facility] Work Phone: Comment on above: Expected: 06/23/2021 , Expires: 07/23/2022 Start: 05-21-2021 COVID-19 VACCINE (4 - Booster for Pfizer series) COVID-19 VACCINE (4 - Booster for Pfizer series) [facility] Start: 04-23-2021 COVID-19 VACCINE (4 - Booster for Pfizer series) COVID-19 VACCINE (4 - Booster for Pfizer series) [facility] Start: 04-15-2021 COVID-19 VACCINE (4 - Booster for Pfizer series) COVID-19 VACCINE (4 - Booster for Pfizer series) [facility] Start: 03-18-2021 COVID-19 VACCINE (4 - Booster for Pfizer series) COVID-19 VACCINE (4 - Booster for Pfizer series) [facility] Start: 03-08-2021 DEPRESSION ASSESSMENT DEPRESSION ASS ESSMENT [facility] Start: 11-19-2020 Colonoscopy COLONOSCOPY [facility] Start: 11-19-2020 COLORECTAL CANCER SCREENING COLORECTAL CANCER SCREENING [facility] Start: 11-19-2020 Screening for malign ant neoplasm of colon [facility] Start: 11-05-2020 Hepatitis B surface antibody level LDL CHOLESTEROL [facility] Start: 07-28-2019 FECAL OCCULT BLOOD FECAL OCCULT BLOO D [facility] Start: 07-28-2019 Screening for malign ant neoplasm of colon Fecal Occult Blood [facility] Start: 03-16-2017 Adult depression scr eening assessment DEPRESSION SCREENING [facility] Start: 01-01-2014 Measurement of occul t blood in single stool specimen FIT [facility] Start: 01-01-2014 Screening for malign ant neoplasm of colon CRC Screening [facility] Start: 01-01-2014 Shingles (RZV) Vacci ne (1 of 2) Shingles (RZV) Vaccine (1 of 2) [facility] Start: 01-01-2014 SHINGRIX VACCINE (1 of 2) ROSS GRIX VACCINE (1 of 2) [facility] Start: 01-01-2009 COLOGUARD (FIT-DNA) COLOGUARD (FIT-D NA) [facility] Start: 01-01-[address] COLONOGRAPHY [facility] Start: 01-01-2009 Screening for malign ant neoplasm of colon [facility] Start: 01-01-2009 SIGMOIDOSCOPY SIGMOIDOSCOPY [facility] Start: 01-01-1999 Lipid panel Cholesterol [facility] Start: 01-01-1983 ONE PNEUMOVAX PRIOR TO AGE 65 ONE PNEUMOVAX PRIOR TO AGE 65 [facility] Start: 01-01-1983 SHINGRIX VACCINE (1 of 2) ROSS GRIX VACCINE (1 of 2) [facility] Start: 01-01-1982 Anxiety Screening Anxiety Screening [facility] Start: 01-01-1982 BP CONTROLLED (<130/80) BP CON TROLLED (<130/80) [facility] Start: 01-01-1982 Depression Screening Depression Scre ening [facility] Start: 01-01-1982 Hepatitis C screening Hepatitis C An tibody [facility] Start: 01-01-1982 Tetanus + diphtheria + acellular pertussis vaccine (product) Tdap Booster [facility] Start: 01-01-1979 HIV screening HIV Test [facility] Start: 01-01-1970 PNEUMOCOCCAL (1 - PCV) PNEUMOCOCCAL (1 - PCV) [facility] Start: 1965 COVID-19 Vaccine (#1) COVID-19 Vacci ne (#1) [facility] Start: 1965 HEPATITIS B (1 of 3 - 3-dose series) HEPATITIS B (1 of 3 - 3-dose series) [facility] Start: 1965 Screening for malign ant neoplasm of colon Colonoscopy [facility] Basic metabolic 2007 panel with ionized calcium - Serum or Plasma [facility] Basic metabolic 2008 panel with ionized calcium - Serum or Plasma [facility] Biopsy bone trocar/n eedle superficial IMAGING GUIDED BIOPSY RIB/BONY PELVIS/STERNUM/SPINOUS PROCESS Radiology Routine Malignant neoplasm of kidney, unspecified laterality (HCC) Malignant neoplasm of kidney excluding renal pelvis, unspecified laterality (HCC) Ordered: 06/23/2021 [facility] Work Phone: Comment on above: Ordered: 06/23/2021 Bone &/joint imaging whole body NM BONE WHOLE BODY Radiology Routine Renal cell carcinoma of right kidney (HCC) Ordered: 03/11/2022 [facility] Work Phone: Comment on above: Ordered: 03/11/2022 CBC W Auto Different ial panel - Blood [facility] CBC W Auto Different ial panel - Blood [facility] CBC W Auto Different ial panel - Blood [facility] CLINICAL TRIAL DRAW CLINICAL TRI AL DRAW Lab STAT Malignant neoplasm of right kidney, except renal pelvis (HCC) 08/08/2021 9:04 AM EDT [facility] Work Phone: End: 08-27-2022 Ct abdomen & pelvis w/contrast material CT ABD/PEL W IVCON Radiology Routine Malignant neoplasm of right kidney, except renal pelvis (HCC) Malignant neoplasm of kidney excluding renal pelvis, unspecified laterality (HCC) 1 Occurrences starting 07/28/2021 until 08/27/2022 [facility] Work Phone: Comment on above: 1 Occurrences starti ng 07/28/2021 until 08/27/2022 End: 09-19-2022 Ct abdomen & pelvis w/contrast material CT ABD/PEL W IVCON Radiology Routine Malignant neoplasm of right kidney, except renal pelvis (HCC) Malignant neoplasm of kidney excluding renal pelvis, unspecified laterality (HCC) 1 Occurrences starting 08/21/2021 until 09/19/2022 [facility] Work Phone: Comment on above: 1 Occurrences starti ng 08/21/2021 until 09/19/2022 Ct abdomen & pelvis w/contrast material CT ABD/PEL W IVCON Radiology Routine Renal cell carcinoma of right kidney (HCC) Ordered: 03/11/2022 [facility] Work Phone: Comment on above: Ordered: 03/11/2022 CT Abdomen and Pelvi s WO contrast [facility] CT CHEST W IVCON CT CHEST W IVCO N Radiology Routine Renal cell carcinoma of right kidney (HCC) Ordered: 03/11/2022 [facility] Work Phone: Comment on above: Ordered: 03/11/2022 CT Chest WO contrast [facility] End: 09-19-2022 Ct thorax w/contrast material CT CHEST W IVCON Radiology Routine Malignant neoplasm of right kidney, except renal pelvis (HCC) Malignant neoplasm of kidney excluding renal pelvis, unspecified laterality (HCC) 1 Occurrences starting 08/21/2021 until 09/19/2022 [facility] Work Phone: Comment on above: 1 Occurrences starti ng 08/21/2021 until 09/19/2022 End: 07-11-2022 ECG COMPLETE ECG COMPLETE ECG Routine Malignant neoplasm of right kidney, except renal pelvis (HCC) 1 Occurrences starting 07/11/2021 until 07/11/2022 [facility] Work Phone: Comment on above: 1 Occurrences starti ng 07/11/2021 until 07/11/2022 ECG COMPLETE [facility] End: 12-30-2022 ECG COMPLETE ECG COMPLETE ECG Routine Renal cell carcinoma of right kidney (HCC) 1 Occurrences starting 12/30/2021 until 12/30/2022 [facility] Work Phone: Comment on above: 1 Occurrences starti ng 12/30/2021 until 12/30/2022 End: 02-16-2023 ECHO LIMITED ECHO LIMITED Cardiology Routine Acute decompensated heart failure (HCC) Paroxysmal atrial fibrillation (HCC) 1 Occurrences starting 02/16/2022 until 02/16/2023 [facility] Work Phone: Comment on above: 1 Occurrences starti ng 02/16/2022 until 02/16/2023 End: 07-11-2022 Echocardiography ECHO Cardiology Routine Malignant neoplasm of right kidney, except renal pelvis (HCC) 1 Occurrences starting 07/11/2021 until 07/11/2022 [facility] Work Phone: Comment on above: 1 Occurrences starti ng 07/11/2021 until 07/11/2022 Elastase.pancreatic [Presence] in Stool [facility] INR in Blood by Coagulation assay [facility] INR in Blood by Coagulation assay [facility] INR in Blood by Coagulation assay [facility] Lactate dehydrogenas e measurement [facility] Magnesium [Mass/volu me] in Serum or Plasma [facility] Magnesium measurement [facility] End: 09-07-2022 Mri abdomen w/o & w/contrast material MRI KIDNEY WO/W IVCON Radiology Routine Other specified disorders of kidney and ureter 1 Occurrences starting 08/08/2021 until 09/07/2022 [facility] Work Phone: Comment on above: 1 Occurrences starti ng 08/08/2021 until 09/07/2022 End: 08-13-2022 Mri brain brain stem w/o w/contrast material MRI BRAIN WO/W IVCON Radiology Routine Malignant neoplasm of kidney excluding renal pelvis, unspecified laterality (HCC) Renal cell carcinoma, unspecified laterality (HCC) 1 Occurrences starting 07/14/2021 until 08/13/2022 [facility] Work Phone: Comment on above: 1 Occurrences starti ng 07/14/2021 until 08/13/2022 NM Heart Views W str ess and W radionuclide IV [facility] End: 07-22-2022 OUTSIDE LISA OUTSIDE LISA Cardiology Routine Nonrheumatic mitral valve regurgitation 1 Occurrences starting 07/22/2021 until 07/22/2022 [facility] Work Phone: Comment on above: 1 Occurrences starti ng 07/22/2021 until 07/22/2022 Ova and parasites identified in Unspecified specimen by Light microscopy [facility] Patient Education [facility] Work Phone: Patient referral [facility] Work Phone: End: 08-19-2022 Polysomnogram POLYSOMNOGRAM (PSG) Procedures Routine Disturbance in sleep behavior 1 Occurrences starting 08/19/2021 until 08/19/2022 [facility] Work Phone: Comment on above: 1 Occurrences starti ng 08/19/2021 until 08/19/2022 End: 01-29-2023 Radiologic exam chest 2 views XR CHEST 2V FRONTAL/LAT Radiology Routine Renal cell carcinoma of right kidney (HCC) 1 Occurrences starting 12/30/2021 until 01/29/2023 [facility] Work Phone: Comment on above: 1 Occurrences starti ng 12/30/2021 until 01/29/2023 Respiratory Panel (PCR) Respirat ory Panel (PCR) [facility] Respiratory pathogen s DNA and RNA 12b panel - Unspecified specimen by SANDOVAL with probe detection [facility] T3 FREE BLD T3 FREE BLD Lab STAT Malignant neoplasm of right kidney, except renal pelvis (HCC) 07/21/2021 7:53 AM EDT [facility] Work Phone: T4 FREE/FREE THYROX T4 FREE/FREE THYROX Lab STAT Malignant neoplasm of right kidney, except renal pelvis (HCC) 07/21/2021 7:53 AM EDT [facility] Work Phone: Thyroid stimulating hormone measurement [facility] Troponin I measurement [facility] Work Phone: Troponin I measurement [facility] URINALYSIS, REFLEX MICROSCOPIC URINALYSIS, REFLEX MICROSCOPIC Lab Routine Screening for genitourinary condition Ordered: 01/23/2022 [facility] Work Phone: Comment on above: Ordered: 01/23/2022 [facility] Work Phone: [facility] Immunizations Immunization Date Immunization Notes Care Provider [facility] 01-21-2021 Pfizer-BioNTech COVID-19 Vacc 30 MCG/0.3ML Intramuscular Suspension Daksha Turner Work Phone: [facility] 06-20-2020 Covid (Pfizer) Dr. Janusz Turner Work Phone: [facility] 06-15-2020 Pfizer-BioNTech COVID-19 Vacc 30 MCG/0.3ML Intramuscular Suspension Daksha Turner Work Phone: [facility] 05-25-2020 Pfizer-BioNTech COVID-19 Vacc 30 MCG/0.3ML Intramuscular Suspension Daksha Turner Work Phone: [facility] 07-25-2018 tetanus toxoid, reduced diphtheria toxoid, and acellular pertussis vaccine, adsorbed Dawit Urbina MD Work Phone: [facility] 12-06-2013 influenza, seasonal, injectable Dawit Urbina MD Work Phone: [facility] 12-06-2013 influenza virus vaccine, unspecified formulation Noreen Morejon Work Phone: [facility] Date of Pneumonia Vaccine: Family [facility] Work Phone: Payers Date Payer Category Payer Medicare [id number] 2023 Self-pay [id number] 2023 Self-pay [id number] 2023 Medicare [id number] 2020 Unknown [employer] [id number] 2020-Present [phone] [place] [address] [id number] 2018 Unknown [id number]. [id number] 2016 Unknown [id number] 2015 Unknown [employer] [id number] 2015-Present [phone] [place] [address] [id number]. [id number] 2008 Unknown [facility] [employer] COMPENSATION [employer] [id number] 2008-Present [phone] [address] [place] [address] [id number]. [id number] 2008 Worker's Compensation [employer] - [employer] [id number] 2008-Present [phone] [place] [address] Worker's Comp [id number] .[id number] 2006 Unknown [id number] 1964 Unknown [id number] 2.840.1.442049.3.579.2. 1069 1964 Unknown [id number] 2.840.1.995450.3.579.2. 1069 1964 Unknown [id number] 2.840.1.445034.3.579.2. 356 1964 Unknown [id number] 2.840.1.158853.3.579.2. 356 Medicare [id number] Unknown [id number] 2.840.1.662945.3.579.2. 277 Unknown [id number] 2.840.1.239514.3.579.2. 462 Unknown [id number] 2.840.1.981162.3.579.2. 462 Unknown [id number] 2.16840.1.399289.3.579.2. 462 Unknown [id number] 2.16840.1.106064.3.579.2. 462 Unknown [id number] 2.840.1.362216.3.579.2. 462 Unknown [id number] 2.16.840.1.946538.3.579.2. 462 Unknown [id number] 2.16.840.1.259652.3.579.2. 462 Unknown [id number] 2.16.840.1.590693.3.579.2. 462 Unknown [id number] 2.16.840.1.985302.3.579.2. 462 Unknown [id number] 2.16.840.1.551817.3.579.2. 462 Unknown [id number] 2.16.840.1.461311.3.579.2. 462 Unknown [id number] 2.840.1.861875.3.579.2. 462 Unknown [id number] 2.840.1.183402.3.579.2. 462 Unknown [id number] 2.840.1.080950.3.579.2. 462 Unknown [id number] 2.840.1.816298.3.579.2. 462 Unknown [id number] 2..840.1.595969.3.579.2. 462 Unknown [id number] 2.16840.1.874431.3.579.2. 462 Unknown [id number] 2.16.840.1.382269.3.579.2. 462 Unknown [id number] 2..840.1.806610.3.579.2. 462 Unknown [id number] 2.16.840.1.053357.3.579.2. 462 Unknown [id number] 2.16.840.1.776753.3.579.2. 462 Unknown [id number] 2.16.840.1.317378.3.579.2. 462 Unknown [id number] 2.16.840.1.713715.3.579.2. 462 Unknown [id number] 2.16840.1.975301.3.579.2. 462 Social History Date Type Detail Facility Start: 06-19-2021 End: 10-09-2021 Tobacco smoking status NHIS Never smoker [facility] Start: 1965 Sex Assigned At Male [facility] Start: 08-19-2021 End: 10-02-2024 Tobacco smoking status NHIS Smokes tobacco daily [facility] Work Phone: History of tobacco use Cigarette Smoker [facility] Work Phone: Start: 06-20-2021 End: 12-09-2021 Alcohol intake Current drinker of alcohol (finding) [facility] Start: 1965 Sex Assigned At Not on file [facility] Start: 06-10-2021 End: 01-19-2022 Exposure to SARS-CoV-2 (event) Not sure [facility] Start: 07-01-2021 End: 11-28-2021 Exposure to SARS-CoV-2 (event) Unable to assess [facility] Start: 06-04-2019 End: 12-15-2022 Tobacco smoking status NHIS Unknown if ever smoked [facility] Work Phone: Start: 06-04-2019 Spouse/ Signif icant Other [facility] Start: 06-04-2019 Secondhand [facility] Start: 08-19-2021 End: 12-09-2021 Tobacco Comment former cigarettes, now cigars 3 per day [facility] Start: 08-19-2021 End: 10-09-2021 Cigarettes smoked current (pack per day) - Reported 0.3 [facility] Start: 08-19-2021 End: 02-16-2022 Tobacco use and exposure Smokeless tobacco non-user [facility] Start: 10-27-2021 History SDOH Alcohol Comment 3 times a week per pt 10/27/2021 [facility] History of tobacco use Cigar Smoker [facility] Start: 02-16-2022 Tobacco smoking status NHIS Ex-smoker [facility] History of tobacco use Current smoker [facility] Start: 02-16-2022 End: 02-17-2022 Alcohol intake Ex-drinker (finding) [facility] Start: 02-16-2022 Tobacco Comment About a month ago smoked cigars About 3-4 years from last time smoked cigarettes [facility] Adult Depression Screening Assessment 1 [facility] Start: 06-06-2024 End: 06-22-2024 Sex Male (finding) [facility] NEGATED: Highlighted rowStart: NINF History of tobacco use Passive smoker [facility] Goals Date Patient Goal Desired Activity /State Functional Status Date Assessment Result Facility 12-17-2022 Functional status Ambulates [facility] Work Phone: 06-29-2022 Functional status Ambulates [facility] Work Phone: 05-20-2022 Functional status Activity Ability Indepe [facility] Work Phone: 05-20-2022 Functional status Patient Activity [facility] Work Phone: 04-16-2022 Functional status Activity Ability Indepe [facility] Work Phone: 04-16-2022 Functional status Ambulates;Up ad haley [facility] Work Phone: 12-09-2021 Functional status Ambulates [facility] Work Phone: 12-08-2021 Functional status None [facility] Work Phone: Functional observable [facility] Mental Status Date Assessment Result Facility 12-17-2022 Cognitive function Voice/Name [facility] Work Phone: 06-29-2022 Cognitive function Voice/Name [facility] Work Phone: 06-27-2022 Cognitive function Voice/Name [facility] Work Phone: 05-20-2022 Cognitive function Voice/Name [facility] Work Phone: 04-16-2022 Cognitive function Voice/Name [facility] Work Phone: 02-06-2022 Cognitive functi ons [id number] [facility] 01-20-2022 Cognitive function Awake;Alert;A ppropriate;Foll ows Commands [facility] Work Phone: 12-09-2021 Cognitive function Voice/Name [facility] Work Phone: 12-07-2021 Cognitive function Voice/Name [facility] Work Phone: Clinical Notes 06-30-2004 to 06-20-2024 Note Date & Type Note Facility 06-20-2024 Evaluation note Diagnosis Onset Date Resolution 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 June 20 1:05pm Renal cell cancer chronic June 062024 1:05pm [facility] Work Phone: 1([phone]) 499-283604-15-2025 Evaluation note* Diagnosis Onset Date Resolution Status [...] 12:55pm Hypertension inactive August 14 12:55pm [facility] Work Phone: 1([phone]) 795-528304-15-2025 Evaluation note* Diagnosis Onset Date Resolution Status [...] 2024 12:55pm Hypertension inactive August 14 12:55pm [facility] Work Phone: 1(502) 515-298804-15-2025 Evaluation note* Diagnosis Onset Date Resolution Status [...] inactive October 02, 2 025 2:24pm [facility] Work Phone: 1(595) 298-712404-15-2025 Evaluation note* Diagnosis Onset Date Resolution Status [...] failure) chron ic October 02, 2024 2:24pm [facility] Work Phone: 1(770) 290-577804-09-2025 Radiology Diagnostic study note [facility] Imaging Services [address] [place] [address] CT Chest, Abd, Pel w/Contrast MR#: [id number] Acct: [id number] Name: YEFRI YANEZ Rep #: [id number] : 1965 M 59 From: Manuela Holman MD PCP: Dr. Daksha Turner MD Status: REG CLI Study:CT Chest, Abd, Pel w/Contrast Date of E xam: 06/13/24 Exam# [id number] Ordering Dr: Jose Botello MD PROCEDURE: CT [...] cm. *Status post right-sided nephrectomy. Reading Location: [facility] CC: Dr. Daksha Turner MD; Dr. 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 Jose Ramon Turner MD Status: ADM LISY Location: [place] [address] Reason for Visit Reason for Visit: Shortness of breath Subjective Subjective Mr. Yanez is a 57-year-old -Gambian male who presented to the emergency department at [facility] on 12/15/2022 with worsening shortness of breath. Patient told the admitting physician that he is supposed to be wearing his oxygen all the time at home however he is only wearing it whenneeded. His oxygen was written for by Dr. Yanez and is to be 3 L [id number]. He does have a history of systolic [...] is supposed to be on 3 L [id number] of oxygen. He tells me that he [...] (Auto) 87.2 H, Lymph % (Auto) 7.4L, Andrews % (Auto) 4.6, Eos % (Auto) 0.1, [...] 79.3 H, Lymph % (Auto) 12.9 L, Andrews % (Auto) 6.0, Eos % (Auto) 0.9, [...] habitus or healthy appearing Constitutional Narrative: Obese, -Gambian, male, lying in bed, appears comfortable and [...] post nephrectomy 02/06/2022--> Dr. Aravind Lopez at [facility] -Currently on immunotherapy -Patient has undergone radiation [...] in a.m. Charges/Coding Visit Charges Inpatient E&M: 50085 Subs Hosp L2 12/16/22 1238 <Electronically signed by Carol Chiu DO> Cosigner Signature (if applicable): CC: ~ Signed [facility] Work Phone: 1([phone]) 217-609510-10-2023 History and physical note Author Marquise Padilla [facility] December 15, 2022 7:30pm Note Date/Time December 15, 2022 4 :56pm [facility] Medical Records Department [address] [place] [address] H&P Exam - Hospitalist 12/15/22 1648 MR#: [id number] Acct: [id number] Name: YEFRI YANEZ Rep #:[id number] : 1965 57 From: Marquise ogden MD PCP: Dr. Jose Ramon Turner MD Status: ADM LISY Location: [place] [address] HPI - General General Date of Admission: [...] 87.2 H, Lymph % (Auto) 7.4 L, Andrews % (Auto) 4.6, Eos % (Auto) 0.1, [...] DVT: Coumadin Charges/Coding Visit Charges Inpatient E&M: 81785 Init Hosp L3 12/15/221929 <Electronically signed by Marquise Padilla MD> Cosigner Signature (if applicable): CC: Dr. Jose Ramon Turner MD; Dr. Marquise Padilla MD~ Signed [facility] Work Phone: 1([phone]) 203-604810-10-2023 Discharge summary Author Speedy Bass [facility] December 15, 2022 3:29pm Note Date/Time December 15, 2022 1 :13pm [facility] Medical Records Department [address] [place] [address] Emergency Department Summary 12/15/22 MR#: [id number] Acct: [id number] Name: YEFRI YANEZ Rep #:[id number] : 1965 57 From: Speedy Bass MD [...] 87.2 H Lymph % (Auto) 7.4 L Andrews % (Auto) 4.6 Eos % (Auto) 0.1 [...] Provider] - Disposition Disposition: Acute Care Hospital [facility] What to do if you have Problems For any increased pain, shortness of breath, bleeding, nausea or vomiting, chestpain, or any unexpected problems, contact your Primary Care Provider. Call [facility] ([phone]) or report to the closest Emergency Room. Call 911 if necessary. 12/15/22 1529 <Electronically signed by Speedy Bass MD> Cosigner Signature (if applicable): CC: Dr. Jose Ramon Turner MD ~ Signed [facility] Work Phone: [phone]) 359-888804-24-[address] Chiu [facility] June 29, 2022 11:24am Note Date/Time June 29, 2022 11: 08am [facility] Medical Records Department [address] [place] [address] Discharge Summary 06/29/22 1105 MR#: [id number] Acct: [id number] Name: YEFRI YANEZ Rep #:[id number] : 1965 57 From: Carol Chiu DO PCP: Dr. Jose Ramon Turner MD Status: ADM IN Location: [place] [address] Providers Date of Admission: 06/28/22 Date of [...] distress and well nourished Constitutional Narrative: Obese, -Gambian, upper middle-aged, male, lying in bed talking [...] (Auto) 91.8 H, Lymph % (Auto) 2.9L, Andrews % (Auto) 4.4, Eos % (Auto) 0.0, [...] Self Care Charges/Coding Visit Charges Inpatient E&M: 68186 Disch Hosp >30min 06/29/22 1124 <Electronically signed by Carol Chiu DO> Cosigner Signature (if applicable): CC: Dr. Jose Ramon Turner MD; Dr. Carol Chiu DO~ Signed [facility] Work Phone: [phone]) 436-391304-23-[address] Wei [facility] June 28, 2022 3:27pm Note Date/Time June 28, 2022 2:1 6pm [facility] Medical Records Department [address] [place] [address] Progress Note 06/28/22 1412 MR#: [id number] Acct: [id number] Name: YEFRI YANEZ Rep #:[id number] : 1965 57 From: Pau Wei MD PCP: Dr. Jose Ramon Turner MD Status: ADM IN Location: [place] [address] 1 Subjective Subjective Patient seen and examined. [...] 75.4 H, Lymph % (Auto) 16.8 L, Andrews % (Auto) 6.0, Eos % (Auto) 0.5, [...] (Auto) 92.0 H, Lymph % (Auto) 4.6L, Andrews % (Auto) 2.3, Eos % (Auto) 0.2, [...] is therapeutic. Charges/Coding Visit Charges Inpatient E&M: 29672 Subs Hosp L2 06/28/22 1527 <Electronically signed by Pau Wei MD> Pau Wei MD Cosigner Signature (if applicable): CC: ~ Signed [facility] Work Phone: [phone]) 459-575704-23-[address] Hastings [facility] June 28, 2022 2:56am Note Date/Time June 27, 2022 11: 30pm [facility] Medical Records Department [address] [place] [address] Emergency Department Summary 06/27/22 MR#: [id number] Acct: [id number] Name: YEFRI YANEZ Rep #:[id number] : 1965 57 From: Livan Lin PCP: Dr. Jose Ramon Turner MD Status: ADM IN Location: [address] History of Present Illness Chief Complaint: Chest Pain Informant: patient, spouse/S.O. and family Narrative Narrative: 10-day history worsening dyspnea with exertion with mild chest discomfort. Significant other present. Diagnosed history of CHF had a heart cath at [facility] that was negative. History of paroxysmal [...] 75.4 H Lymph % (Auto) 16.8 L Andrews % (Auto) 6.0 Eos % (Auto) 0.5 [...] (Auto) Neut % (Auto) Lymph % (Auto) Andrews % (Auto) Eos % (Auto) Baso % [...] Atrial fibrillation Disposition Disposition: Acute Care Hospital [facility] Discharge Date/Time: 06/28/22 01:02 What to do if you have Problems For any increased pain, shortness of breath, bleeding, nausea or vomiting, chest pain, or any unexpected problems, contact your Primary Care Provider. Call [facility] ([phone]) or report to the closest Emergency Room. Call 911 if necessary. 06/28/22 0256 <Electronically signed by Livan Lin> Cosigner Signature (if applicable): CC: Dr. Jose Ramon Turner MD ~ Signed [facility] Work Phone: 1(870) 733-614504-23-2023 History and physical note Author Dr. Lu [facility] June 28, 2022 12:52am Note Date/Time June 28, 2022 12: 20am [facility] Medical Records Department [address] [place] [address] H&P Exam - Hospitalist 06/28/22 0007 MR#: [id number] Acct: [id number] Name: YEFRI YANEZ Rep #:[id number] : 1965 57 From: Estelita Lu MD PCP: Dr. Jose Ramon Turner MD Status: ADM IN Location: [place] [address] HPI - General General Date of Admission: 06/28/22 Date of Service: 06/28/22 Chief Complaint: Dyspnea, chest pain, wheezing, cough, recent incorrect Rx bumex. HPI Narrative The patient is a 57 y/o M w/ PMHx: Obesity, NIMCO on CPAP, PAF s/p prior cardioversion on coumadin, COPD, HTN, HLD, GERD, Metastatic renal CA s/p R nephrectomy, Tobacco use who presents to the [facility] ED on 06/27/22 with history of [...] 75.4 H, Lymph % (Auto) 16.8 L, Andrews % (Auto) 6.0, Eos % (Auto) 0.5, [...] nephrectomy, Tobacco use who presents to the [facility] ED on 06/27/22 with history of [...] spine 12/2021, 02/06/2022 right radical nephrectomy at [facility], CT scan on 03/26/2022 showed no evidence [...] 75 minutes. Charges/Coding Visit Charges Inpatient E&M: 60603 Init Hosp L3 Procedures Hospitalists Procedures: 83970 Advncd Care Plan 30 Min 06/28/22 0052 <Electronically signed by Estelita Lu MD> Cosigner Signature (if applicable): CC: Dr. Estelita Lu MD; Dr. Jose Ramon Turner MD~ Signed [facility] Work Phone: 1([phone]) [phone] Che [facility] May 20, 2022 9:40am Note Date/Time May 20, 2022 9:4 0am [facility] Medical Records Department [address] [place] [address] Discharge Summary 05/20/22 0939 MR#: [id number] Acct: [id number] Name: YEFRI YANEZ Rep #:[id number] : 1965 57 From: Jesús Che DO PCP: Dr. Jose Ramon Turner MD Status: ADM IN Location: [place] [address] Providers Date of Admission: 05/18/22 Primary Care [...] to been established with oncology at the [facility] and then at [facility] but due to insurance changes, he will be following up with [facility]. DVT ppx: Coumadin therapeutic Discharge home [...] Qty: 60 0RF Referrals / Follow Up: [facility] [Provider Group] - 05/27/22 10:30 am *[facility] [Provider Group] - Within 1 Month Jose Ramon Turner MD [Primary Care Provider] - Within 2 Weeks Disposition Disposition (needs filled in before D/C Order can be placed): Home, Self Care Charges/Coding Visit Charges Inpatient E&M: 47389 Disch Hosp >30min 05/20/22 0940 <Electronically signed by Jesús Che DO> Cosigner Signature (if applicable): CC: Dr. Jose Ramon Turner MD; Dr. Jesús Che DO~ Signed [facility] Work Phone: 1([phone]) 234-602903-15-[address] Che [facility] May 20, 2022 9:39am Note Date/Time May 20, 2022 9:3 3am [facility] Medical Records Department [facility] [place] [address] Instructions for Home/Discharge Instructions 05/20/22 0932 MR#: [id number] Acct: [id number] Name: YEFRI YANEZ Rep #:[id number] : 1965 57 From: Jesús Che DO [...] Qty: 60 0RF Referrals / Follow Up: [facility] [Provider Group] - 05/27/22 10:30 am *[facility] [Provider Group] - Within 1 Month Jose Ramon Turner MD [Primary Care Provider] - Within 2 Weeks Disposition Disposition (needs filled in before D/C Order can be placed): Home, Self Care 05/20/22 0939<Electronically signed by Jesús Che DO>Jesús Che DO CC: Dr. Jose Ramon Turner MD; Dr. Alicia Dukes MD ~ Signed [facility] Work Phone: 1([phone]) 507-941703-15-[address] Che [facility] May 20, 2022 9:32am Note Date/Time May 20, 2022 8:3 4am [facility] Medical Records Department [address] [place] [address] Progress Note - Hospitalist 05/20/22 0831 MR#: [id number] Acct: [id number] Name: YEFRI YANEZ Rep #:[id number] : 1965 57 From: Jesús Che DO PCP: Dr. Jose Ramon Turner MD Status: ADM IN Location: [place] [address] Reason for Visit Reason for Visit: Diagnoses [...] Cosigner Signature (if applicable): CC: ~ Signed [facility] Work Phone: [phone] Che [facility] May 19, 2022 1:50pm Note Date/Time May 19, 2022 8:1 1am [facility] Medical Records Department [address] [place] [address] Progress Note - Hospitalist 05/19/22 0808 MR#: [id number] Acct: [id number] Name: YEFRI YANEZ Rep #:[id number] : 1965 57 From: Jesús Che DO PCP: Dr. Jose Ramon Turner MD Status: ADM IN Location: [place] [address] Reason for Visit Reason for Visit: Diagnoses [...] 80.8 H, Lymph % (Auto) 13.3 L, Andrews % (Auto) 4.9, Eos % (Auto) 0.2, [...] 80.2 H, Lymph % (Auto) 14.8 L, Andrews % (Auto) 4.0, Eos % (Auto) 0.5, [...] Coumadin therapeutic Charges/Coding Visit Charges Inpatient E&M: 11843 Subs Hosp L2 05/19/22 1350 <Electronically signed by Jesús Che DO> Cosigner Signature (if applicable): CC: ~ Signed [facility] Work Phone: 1(543) 800-208603-13-[address] Banda [facility] May 18, 2022 8:58pm Note Date/Time May 18, 2022 4:1 8pm [facility] Medical Records Department [address] [place] [address] Emergency Department Summary 05/18/22 MR#: [id number] Acct: [id number] Name: YEFRI YANEZ Rep #:[id number] : 1965 57 From: Kassy Banda MD PCP: Dr. Jose Ramon Turner MD Status: ADM IN Location: [address] History of Present Illness Chief Complaint: [...] Medical decision making narrative: Patient placed on secured entrance monitor to evaluate for arrhythmia. 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 Call [facility] ([phone]) or report to the closest Emergency Room. Call 911 if necessary. 05/18/222057 <Electronically signed by Kassy Banda MD> Cosigner Signature (if applicable): CC: Dr. Jose Ramon Turner MD ~ Signed [facility] Work Phone: 1([phone]) 503-419503-13-2023 History and physical note Author Dr. Dukes [facility] May 18, 2022 7:34pm Note Date/Time May 18, 2022 6:3 8pm [facility] Medical Records Department [address] [place] [address] H&P Exam - Hospitalist 05/18/221822 MR#: [id number] Acct: [id number] Name: YEFRI YANEZ Rep #:[id number] : 1965 57 From: Alicia Dukes MD PCP: Dr. Jose Ramon Turner MD Status: ADM IN Location: [id number]- 1 HPI - General General Date of Admission: 05/18/22 Date of Service: 05/18/22 Chief Complaint: SOB, weight gain HPI Narrative YEFRI YANEZ, is a 57 M with a history of congestive heart failure, hypertension, NIMCO, renal cancer status post unilateral nephrectomy in March, A-fib on Coumadin presented to [facility] 05/18/2022 with increasing weight and shortness of [...] 80.8 H, Lymph % (Auto) 13.3 L, Andrews % (Auto) 4.9, Eos % (Auto) 0.2, [...] 16:45 EDT Reading Location ID and State: [facility] / [place] , Service support , Assessment & Plan [...] 60 minutes Charges/Coding Visit Charges Inpatient E&M: 84477 Init Hosp L2 03/1933 <Electronically signed by Alicia Dukes MD> Cosigner Signature (if applicable): CC: Dr. Jose Ramon Turner MD; Dr. Alicia Dukes MD~ Signed [facility] Work Phone: 1([phone]) 989-106002-08-[address] Chiu [facility] April 15, 2022 4:54pm Note Date/Time April 15, 2022 4 :54pm [facility] Medical Records Department [address] [place] [address] Progress Note - Hospitalist 04/15/22 1647 MR#: [id number] Acct: [id number] Name: YEFRI YANEZ Rep #:[id number] : 1965 57 From: Carol Chiu DO PCP: Dr. Jose Ramon Turner MD Status: ADM IN Location: [place] [address] Reason for Visit Reason for Visit: Diagnoses [...] 74.5 H, Lymph % (Auto) 15.1 L, Andrews % (Auto) 8.4, Eos % (Auto) 0.4, [...] distress and well nourished Constitutional Narrative: Obese, -Gambian, male lying in bed on supplemental oxygen [...] be deferred till tomorrow -Troponins have been [phone] -This elevation may be related to his [...] post nephrectomy 02/06/2022--> Dr. Aravind Lopez at [facility] -Currently on chemotherapy -Patient has undergone radiation [...] -INR therapeutic Charges/Coding Visit Charges Inpatient E&M: 00583 Subs Hosp L2 04/15/22 1652 <Electronically signed by Carol Chiu DO> Cosigner Signature (if applicable): CC: ~ Signed [facility] Work Phone: 1(650) 218-448702-07-[address] Chiu [facility] April 14, 2022 6:11pm Note Date/Time April 14, 2022 7 :40am [facility] Medical Records Department [address] [place] [address] Progress Note - Hospitalist 04/14/22 0737 MR#: [id number] Acct: [id number] Name: YEFRI YANEZ Rep #:[id number] : 1965 57 From: Carol Chiu DO [...] on February 06 by Aravind Lopez at [facility]. He does have metastatic disease to bone. [...] 79.4 H, Lymph % (Auto) 12.7 L, Andrews % (Auto) 7.1, Eos % (Auto) 0.0, [...] distress and well nourished Constitutional Narrative: Obese, -Gambian, male sitting up in bed on supplemental [...] to be done tomorrow -Troponins have been [phone] -This elevation may be related to his [...] post nephrectomy 02/06/2022--> Dr. Aravind Lopez at [facility] -Currently on chemotherapy -Patient has undergone radiation [...] in a.m. Charges/Coding Visit Charges Inpatient E&M: 78936 Subs Hosp L2 04/14/22 1811 <Electronically signed by Carol Chiu DO> Cosigner Signature (if applicable): CC: ~ Signed [facility] Work Phone: 1([phone]) 772-669702-07-2023 History and physical note Author Dr. Camacho [facility] April 14, 2022 12:43am Note Date/Time April 14, 2022 1 2:24am [facility] Medical Records Department [address] [place] [address] H&P Exam - Hospitalist 04/13/22 5216 MR#: [id number] Acct: [id number] Name: YEFRI YANEZ Rep #:[id number] : 1965 57 From: Dangelo Camacho MD [...] 79.4 H, Lymph % (Auto) 12.7 L, Andrews % (Auto) 7.1, Eos % (Auto) 0.0, [...] 21:56 EST Reading Location ID and State: [facility] / [place] Tel , Service support , [...] is subtherapeutic. Charges/Coding Visit Charges Inpatient E&M: 28712 Init Hosp L3 04/14/22 0043 <Electronically signed by Dangelo Camacho MD> Cosigner Signature (if applicable): CC: Dr. Jose Ramon Turner MD; Dr. Dangelo Camacho MD~ Signed [facility] Work Phone: 1([phone]) [phone] Dunn [facility] April 13, 2022 11:51pm Note Date/Time April 13, 2022 1 0:31pm [facility] Medical Records Department [address] [place] [address] Emergency Department Summary 04/13/22 MR#: [id number] Acct: [id number] Name: YEFRI YANEZ Rep #:[id number] : 1965 57 From: Kei Dunn DO [...] February [address] Aravind Lopez at [facility]. Patient reported that he is on a [...] 79.4 H Lymph % (Auto) 12.7 L Andrews % (Auto) 7.1 Eos % (Auto) 0.0 [...] your Primary Care Provider. Call [facility] ([phone]) or report to the closest Emergency Room. Call 911 if necessary. 04/13/22 4611 <Electronically signed by Kei Dunn DO> Cosigner Signature (if applicable): CC: Dr. Jose Ramon Turner MD ~ Signed [facility] Work Phone: 1([phone]) 566-511902-07-[address] Dunn [facility] April 13, 2022 11:51pm Note Date/Time April 13, 2022 1 0:31pm [facility] Medical Records Department [address] [place] [address] Emergency Department Summary 04/13/22 MR#: [id number] Acct: [id number] Name: YEFRI YANEZ Rep #:[id number] : 1965 57 From: Kei Dunn DO [...] February [address] Aravind Lopez at [facility]. Patient reported that he is on a [...] 79.4 H Lymph % (Auto) 12.7 L Andrews % (Auto) 7.1 Eos % (Auto) 0.0 [...] your Primary Care Provider. Call [facility] ([phone]) or report to the closest Emergency Room. Call 911 if necessary. 04/13/22 2351 <Electronically signed by Kei Dunn DO> Cosigner Signature (if applicable): CC: Dr. Jose Ramon Turner MD ~ Signed [facility] Work Phone: [phone] NoteHNO ID: [id number] Author: Sary Garcia RN Service: ? Author Type: Registered Nurse Type: Progress Notes Filed: 04/09/2022 1:29 PM Note Text: Patient treatment being held today per physician discretion. Sary Garcia RN [facility]02-02-2023 NoteHNO ID: [id number] Author: Liliam Ashley RN Service: ? Author Type: Registered Nurse Type: Progress Notes Filed: 04/09/2022 1:29 PM Note Text: Motor Racer Chart Processing Date: 2022 Laboratory: Draw labs: Pending Labs. Office visit prior to treatment please verify all needed labs were drawn and review results. Chemotherapy Orders: Orders NOT released to Pharmacy. TREATMENT RN TO RELEASE Consents: Consent form needs signed by patient Special Instructions: Validate height Liliam Ashley [facility]23 History of Present illness Narrative* Sary Garcia RN - 04/09/2022 1:29 PM EST Patient treatment being held today per physician discretion. Sary Garcia RN BSN * Liliam Ashley RN - 04/09/2022 11:30 AM EST Motor Racer Chart Processing Date: 2022 Laboratory: Draw labs: Pending Labs. Office visit prior to treatment please verify all needed labs were drawn and review results. Chemotherapy Orders: Orders NOT released to Pharmacy. TREATMENT RN TO RELEASE Consents: Consent form needs signed by patient Special Instructions: Validate height Liliam Ashley RN documented in this encounterKettering Health [facility]02-02-2023 NoteHNO ID: [id number] Author: Haylee Wilburn MD Service: ? Author Type: Physician Type: Progress Notes Filed: 04/09/2022 4:21 PM Note Text: [facility] Progress Note SERVICE DATE: April 09, [...] started treatment with cabo + nivo on [facility] 1819 Trial on 08/08/2021 at [facility]. He has baseline HTN and developed worsening HTN after starting treatment. His cabo was held on 08/18/2021, resumed on 09/11/2021. The Nivo was held on 09/11/21 due to pneumonitis, and prednisone 60 mg daily was started and tapered off within about one month. Due to insurance change, he was taken off the trial and referred to [facility] Oncology. All treatments were supposed to [...] radical nephrectomy by Dr. Aravind Hernandez at [facility] in [facility] on 02/06/2022. PATHOLOGY: -Renal cell carcinoma, clear-cell type, 5.3 x 3.0 x 2.7 cm, ISUP nuclear grade 3. -Carcinoma invades renal vein and lurdes-nephritic adipose tissue. -Margins of resection are negative for carcinoma. -Lymphovascular invasion not identified. -Regional lymph nodes not submitted. -[id number]. 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 He denies pain in the chest wall [...] tablet Take 2 table (more content not included)...[facility]01-26-2023 Miscellaneous Notes* Telephone Encounter - Donavon Eastman - 04/02/2022 11:02 AM EST Patient did not show for appointment with MW, left message to call office put on recall Donavon Eastman' documented in this encounterKettering Health [facility]01-26-2023 Miscellaneous Notes* Telephone Encounter - America Schwartz RN - 04/02/2022 10:51 AM ESTSummary: Appointment Called patient and in regards to missed office visit with Dr. Wilburn, and immunotherapy appointment. No answer left messages for patient to call and reschedule. America Schwartz RN, BSN, OCN documented in this encounterKettering Health [facility]01-19-2023 NoteHNO ID: [id number] Author: Jerica Parsons RT(R) Service: Radiology Author [...] Yanez DATE: March 26, 2022 TIME: 10:16 [facility]01-18-2023 Miscellaneous Notes* Telephone Encounter - Tania Parekh RN - 03/25/2022 8:57 AM EST Patient called stating his insurance is not approved for our office and that Dr. Wilburn needs to place a Referral for Nathaniel. I reminded him that last week he called me telling me that his insurance is making him go to [facility] for the scans and not Nathaniel [...] insurance information.Tania Parekh RN documented in this encounterKettering Health [facility]01-16-2023 NoteHNO ID: [id number] Author: RT Citlaly(R) Service: ? Author Type: [...] March 23, 2022 TIME: 12:10 PM PAGER/CONTACT #:[facility]01-16-2023 History of Present illness Narrative* RT [...] radiation safety can be found usingthis link: [email or web address] SIGNATURE: RT Citlaly(R) PATIENT NAME: Yefri Yanez DATE: March 23, 2022 TIME: 12:10 PM PAGER/CONTACT #: documented in this encounterKettering Health [facility]01-09-2023 Miscellaneous Notes* Telephone Encounter - Malachi Schaffer RPh - 03/16/2022 11:27 AM EST Prior authorization was approved for Inlyta. Plan Name: [employer] [place] reference number: [id number] Approval Dates: 03/08/2022 - 03/13/2023 However, s/he is required to use [facility] to fill this medication. Will queue prescription(s) to go to designated specialty pharmacy. For reference, their pharmacy phone number is [phone]. No further action by [facility] Specialty. Radha Scahffer, PharmD, AAHIVP Clinical Pharmacist, Oncology [facility] P: ; F: Pool: P CC [facility] ONCOLOGY Pool #: [id number] documented in this encounterKettering Health [facility]01-05-2023 Miscellaneous Notes* Telephone Encounter - America Schwartz RN - 03/12/2022 10:37 AM ESTSummary: Appointment LMOM with the appointment dates, times and location of upcoming bone scan and CT scans. Bone scan 03/23/22 at 830 am here at the [facility] hospital. CT scans at [place] urgent care 03/24/22 at 1pm. America Reed RN, BSN, OCN documented in this encounterKettering Health [facility]01-05-2023 [facility]Reg[facility]Reg[facility]-05-2023 NoteReg[facility]01-05-2023 History of Present illness Narrative* Adrienne Chung (Assembler Product) - 03/12/2022 8:13 AM EST [facility] received prescription(s) for Inlyta from Dr. Wilburn's office. Benefits investigation was conducted, indicating that a prior authorization is required by patient's insurance plan with [employer]. Encounter will be updated once prior authorization has been submitted by [facility]. Adrienne Chung, Lead [facility], Oncology P: / F: documented in this encounterKettering Health [facility]01-04-2023 NoteHNO ID: [id number] Author: Haylee Wilburn MD Service: ? Author Type: Physician Type: Progress Notes Filed: 03/11/2022 4:16 PM Note Text: [facility] Progress Note SERVICE DATE: March 11, 2022 [...] started treatment with cabo + nivo on [facility] 1820 Trial on 08/08/2021 at [facility]. He has baseline HTN and developed worsening HTN after starting treatment. His cabo was held on 08/18/2021, resumed on 09/11/2021. The Nivo was held on 09/11/21 due to pneumonitis, and prednisone 60 mg daily was started and tapered off within about one month. Due to insurance change, he was taken off the trial and referred to [facility] to resume the treatment. He was scheduled to have nephrectomy on 11/04/21, but delayed due to his back pain. He underwent palliative XRT to L3-L5 (2,000 cGy in 5 fx), completed 12/26/21). He underwent da Farzad assisted robotic right radical nephrectomy at [facility] in [facility]. I do not have the official pathology report yet. We have made multiple requests to [facility] for the surgical pathology, to no [...] Admin perflutren lipid microsphere (more content not included)...[facility] 03-11-2022 History of Present illness Narrative* Haylee Wilburn MD - 03/11/2022 1:25 PM EST Images from the original note were not included. [facility] Progress Note SERVICE DATE: March 11, [...] started treatment with cabo + nivo on [facility]20 Trial on 08/08/2021 at [facility]. He has baseline HTN and developed worsening HTN after starting treatment. His cabo was held on 08/18/2021, resumed on 09/11/2021. The Nivo was held on 09/11/21 due to pneumonitis, and prednisone 60 mg daily was started and tapered off within about one month. Due to insurance change, he was taken off the trial and referred to [facility] to resume the treatment. He was scheduled to have nephrectomy on 11/04/21, but delayed due to his back pain. He underwent palliative XRT to L3-L5 (2,000 cGy in 5 fx), completed 12/26/21). He underwent da Farzad assisted robotic right radical nephrectomy at [facility] in [facility]. I do not have the official pathology report yet. We have made multiple requests to [facility] for the surgical pathology, to no [...] underwent radical nephrectomy by Dr. Lopez at [facility], but I do not have the surgical [...] cc: Daksha Turner MD documented in this encounterKettering Health [facility]12-27-2022 NoteSend Summary: Discharge Summary Providers: Provider RoleProvider Name Aravind Kinsey Christopher Note Recipients: Aravind Hernandez MD Ranney, Christopher, MD - [phone] [] Discharge: Summary: Admission Date: .06-Feb-2022 08:57:00 [...] Data Referenced From Consult-DACR, Medicine 07-Feb-2022 16:43[facility]12-13-2022 NoteHNO ID: [id number] Author: Haylee Wilburn MD Service: ? Author Type: Physician Type: Progress Notes Filed: 02/17/2022 5:25 PM Note Text: [facility] Progress Note SERVICE DATE: February 17, [...] started treatment with cabo + nivo on [facility] 182 Trial on 08/08/2021 at [facility]. He has baseline HTN and developed worsening HTN after starting treatment. His cabo was held on 08/18/2021, resumed on 09/11/2021. The Nivo was held on 09/11/21 due to pneumonitis, and prednisone 60 mg daily was started and tapered off within about one month. Due to insurance change, he was taken off the trial and referred to [facility] to resume the treatment. He was scheduled to have nephrectomy on 11/04/21, but delayed due to his back pain and palliative XRT to L3-L5 (2,000 cGy in 5 fx, completed 12/26/21). His back pain has resolved. He underwent da Farzad assisted robotic right radical nephrectomy at [facility] in [facility]. I do not have the [...] headaches and light-headedness. Hematol (more content not included)...[facility]12-13-2022 History of Present illness Narrative* Haylee Wilburn MD - 02/17/2022 5:02 PM EST Images from the original note were not included. [facility] Progress Note SERVICE DATE: February 17, [...] started treatment with cabo + nivo on [facility] 182 Trial on 08/08/2021 at [facility]. He has baseline HTN and developed worsening HTN after starting treatment. His cabo was held on 08/18/2021, resumed on 09/11/2021. The Nivo was held on 09/11/21 due to pneumonitis, and prednisone 60 mg daily was started and tapered off within about one month. Due to insurance change, he was taken off the trial and referred to [facility] to resume the treatment. He was scheduled to have nephrectomy on 11/04/21, but delayed due to his back pain and palliative XRT to L3-L5 (2,000 cGy in 5 fx, completed 12/26/21). His back pain has resolved. He underwent da Farzad assisted robotic right radical nephrectomy at [facility] in [facility]. I do not have the official [...] 10/20/2021 PLAN: Old records from [facility] including surgical pathology and scans. Follow-up in 3 weeks regarding systemic therapy. Haylee Wilburn MD cc: Daksha Turner MD documented in this encounterKettering Health [facility]12-13-2022 Miscellaneous Notes* Telephone Encounter - Florian Mello [...] with Dr. Tello. Please call her at [phone]. documented in this encounterKettering Health [facility]12-12-2022 NoteHNO ID: [id number] Author: Sayra Tello MD Service: ? Author Type: Physician Type: Progress Notes Filed: 02/16/2022 11:29 AM Note Text: [facility] OUTPATIENT VISIT DATE 02/16/2022 OUTPATIENT VISIT TYPE NEW PATIENT PRIMARY CARE PHYSICIAN: Daksha Turner (Sarah) [address] [place] [address] HISTORY OF PRESENT ILLNESS: 57-year-old male CAD, [...] vaping sometimes tobacco. 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 PAST MEDICAL HISTORY Diagnosis Date Abdominal aortic [...] 1 tablet by kellie (more content not included)...[facility]12-12-2022 Instructions* Patient Instructions* Florian Mello RN - 02/16/2022 11:23 AM EST We will call you with the date and time of your test. Please report to the Cardiac Diagnostics Department: Located on the 2nd floor of the surgery center on [address] ([facility]). Agricultural Inspector and free parking is available. The test may be scheduled at a different location. If this happens the coding analyst will notify you when calling to give you the date and time information. If you have any questions regarding the test or if you need to cancel / reschedule your appointment, please call [phone] as soon as possible. Please refer to [...] them, faxthem, drop them off, or use [employer]. If you have any questions before your next appointment please call Florian Montana RN @ [phone] ext [phone]. If Adrienne asked you to call her so she can help you with [employer] you can call her at [phone] ext [phone]. documented in this encounterKettering Health [facility]12-12-2022 History of Present illness Narrative* Sayra Tello MD - 02/16/2022 10:00 AM EST Images from the original note were not included. [facility] OUTPATIENT VISIT DATE 02/16/2022 OUTPATIENT VISIT TYPE NEW PATIENT PRIMARY CARE PHYSICIAN: Daksha Turner ([facility]) [address] [place] [id number] HISTORY OF PRESENT ILLNESS: 57-year-old male CAD, [...] vaping sometimes tobacco. 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 PAST MEDICAL HISTORY Diagnosis Date Abdominal aortic [...] previous ECGs available Confirmed by YARY CLEMENT, [facility] ([id number]) on 01/20/2022 8:35:[address] Result Conclusion CT CHEST W IVCON Exam End: 11/20/2021 10:37 AM (Edited Result - FINAL) Addendum: * * *Final Report* * * * * * SEE BOTTOM OF REPORT FOR ADDENDED TEXT * * * DATE OF EXAM: Nov 20 2021 10:37AM [facility]39 - CT CHEST W [...] MR moderate TR moderate AI RVSP 35 [facility] 08/05/2021: Mid left main 20%, mild [...] vaping sometimes tobacco. 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 Plan: Reviewed all the prior reports including [...] diagnosis) Sayra Tello MD documented in this encounterKettering Health [facility]12-09-2022 NoteHNO ID: [id number] Author: Suman Peterson APRN.CROWN ATTACHER Service: ? Author Type: Nurse Practitioner Type: [...] or develops any concerning symptoms. Suman Peterson APRN.[facility]12-09-2022 Nurse Note* Tamiko Mason RN - 02/13/2022 2:13 PM EST Images from the original note were not included. Radiation Therapy - Nursing Note (Follow-up) PATIENT NAME: Yefri Yanez PATIENT February 13, 2022 [facility] FACILITY/LOCATION: [facility] Reason for visit: Follow up. Subjective Data Patient reports 8/10 pain r/t recent right nephrectomy at on 02/06. Additional Data Do you want to see a Alumni Coordinator? No Difficulty performing or completing routine daily [...] MOB 02/17/2022 11:30 AM Haylee Wilburn MD [facility] Courtney CLEMENT MOB SIGNED by: Tamiko Mason RN documented in this encounterKettering Health [facility]12-09-2022 History of Present illness Narrative* Suman Peterson APRN.[facility] - 02/13/2022 2:02 PM EST Radiation Oncology [...] symptoms. Suman Peterson APRN.BEATRICE documented in this encounterKettering Health [facility]12-06-2022 Hospital Discharge instructions* Follow Up Appointment 1:Physician/Dept/Service: Dr. Lockett for Referral: post op follow upCall to Schedule in: 2 weeksPhone Number: [phone]: Please call to schedule appointment * Follow [...] WORRISOME - NOTIFY YOUR PHYSICIAN OR RESIDENT SHIFT COORDINATOR. - Fever g reater than 101 F or 38.3 C, chills, nausea, vomiting, or feeling ill. - Inability to urinate. - Drainage of foul smelling fluid (pus) from the incision or drain sites. - Excruciating pain that is not controlled by prescription or lmfz-obe-gwhukfm medications. * Medication Information:- You were sent [...] appointments, please call our Main Office at [phone]. [facility]12-02-2022 NotePROCEDURE DETAILS Preoperative Diagnosis: renal cell carcinoma, congestive heart failure Postoperative Diagnosis: renal cell carcinoma, congestive heart failure Surgeon: Aravind Hernandez MD Resident/Fellow/Other Architect Internship: Clau Diallo MD Procedure: laparoscopic right radical [...] to the xiphoid process. A 12 mm stonecutter assistant port was placed a hands-breadth inferolateral [...] then closed in several layers. Initially, several paqoir-in-nzner sutures were placed with 0 Vicryl to reapproximate the bellies of the rectus abdominis. The anterior rectus fascia was then closed using running 0 PDS suture x2. Subcutaneous fat was then c (more content not included)...[facility] Note History & Physical Reviewed: I have [...] the note. I personally evaluated the patient [id number] Electronic Signatures: Aravind Hernandez) (Signed 07-Feb-2022 09:05) Authored: Note Completion Co-Signer: History & Physical Reviewed, ERAS, Consent, Note Completion Clau Diallo (Resident)) (Signed 06-Feb-2022 07:12) Authored: History & Physical Reviewed, ERAS, Consent, Note Completion Last Updated: 07-Feb-2022 09:05 by Aravind Hernandez)[facility] 01-22-2022 Miscellaneous Notes* Telephone Encounter - Bairon Landers MA - 01/22/2022 1:00 PM EST Pt called in to request a refill on his torsemide to be sent to [facility] in [place], this request wassent to Kitty Carballo for approval and processing. Per Kitty this was refused due to we don't prescribe this medication, I called to advise Pt that he will need to contact the prescribing doctor to get a refill on this mediation. He verbalized understanding. documented in this encounterKettering Health [facility] Township11-14-2022 NoteHNO ID: [id number] Author: RT Kourtney(R) Service: Radiology Author Type: [...] BY: RT Kourtney(R) January 19, 2022 11:03 [facility]11-14-2022 History of Present illness Narrative* RT Kourtney(R) [...] 19, 2022 11:03 AM documented in this encounterKettering Health [facility] Township10-28-2022 NoteHNO ID: [id number] Author: Alfredo Xavier MD Service: Radiation Oncology Author Type: Physician Type: Progress Notes Filed: 01/07/2022 12:35 AM Note Text: YEFRI YANEZ [id number] 2022 [facility] Department of Radiation Oncology [facility] RADIATION ONCOLOGY: COMPLETION NOTE DATE OF SIMULATION: 12/12/2021 DATES OF TREATMENT: 12/22/2021 to 12/26/2021 TREATMENT MACHINE: [employer] TREATMENT AREA: L3-L5 , R CW DIAGNOSIS: 57 year old male with Malignant neoplasm of right kidney, except renal pelvis , histological stage [id number] and clinical stage IV CONCURRENT THERAPY: DELIVERED [...] :36 PM Electronically Signed cc: Daksha Mills, [facility]10-28-2022 History of Present illness Narrative * Alfredo Xavier MD - 2022 12:00 AM EDT YEFRI YANEZ [id number] 2022 [facility] Department of Radiation Oncology [facility] RADIATION ONCOLOGY: COMPLETION NOTE DATE OF SIMULATION: 12/12/2021 DATES OF TREATMENT: 12/22/2021 to 12/26/2021 TREATMENT MACHINE: [employer] TREATMENT AREA: L3-L5 , R CW DIAGNOSIS: 57 year old male with Malignant neoplasm of right kidney, except renal pelvis , histological stage [id number] and clinical stage IV CONCURRENT THERAPY: DELIVERED [...] cc: Daksha Mills Michael documented in this encounterKettering Health [facility] Township10-25-2022 Miscellaneous Notes* Telephone Encounter - Adriana Hodge MD - 12/30/2021 1:53 PM EDT IC Adriana Hodge MD documented in this encounterKettering Health [facility]10-23-2022 Miscellaneous Notes* Telephone Encounter - Adriana Hodge [...] the anaestheic including but not limited to IN, CVA, DVT, and PE, and the risks [...] proceed. Adriana Hodge MD documented in this encounterKettering Health Washington Township10-22-2022 Miscellaneous Notes* Telephone Encounter - Adriana Hodge MD - 12/27/2021 7:07 PM EDT I tried to call to move his care forward, but had to leave messages on both lines Adriana Hodge MD documented in this encounterKettering Health [facility] Township10-07-2022 NoteHNO ID: [id number] Author: Alfredo Xavier MD Service: Radiation Oncology Author Type: Physician Type: Progress Notes Filed: 12/17/2021 12:34 AM Note Text: YEFRI YANEZ [id number] 12/12/2021 [facility] Department of Radiation Oncology Treatment Planning [...] DVH. Electronically Signed Alfredo Xavier M.D. :19 [facility]10-07-2022 NoteHNO ID: [id number] Author: Alfredo Xavier MD Service: Radiation Oncology Author Type: Physician Type: Progress Notes Filed: 12/17/2021 12:34 AM Note Text: YEFRI YANEZ [id number] 12/12/2021 [facility] Department of Radiation Oncology [facility] RADIATION ONCOLOGY SIMULATION NOTE DATE OF SIMULATION: [...] nursing. Electronically Signed Alfredo Xavier M.D. :06 [facility]10-07-2022 History of Present illness Narrative* Alfredo Xavier MD - 12/12/2021 12:00 AM EDT YEFRI YANEZ [id number] 12/12/2021 [facility] Department of Radiation Oncology Treatment Planning [...] Xavier M.D. :19 PM documented in this encounterKettering Health [facility]10-07-2022 History of Present illness Narrative* Alfredo Xavier MD - 12/12/2021 12:00 AM EDT YEFRI YANEZ [id number] 12/12/2021 [facility] Department of Radiation Oncology [facility] RADIATION ONCOLOGY SIMULATION NOTE DATE OF SIMULATION: [...] Xavier M.D. 25:06 PM documented in this encounterKettering Health [facility]10-04-2022 NoteHNO ID: [id number] Author: Alfredo Xavier MD Service: ? Author [...] He was evaluated in the ER at [facility]. As part of his work-up a [...] Nondistended. Musculoskeletal: No e (more content not included)...[facility] 12-09-2021 Nurse Note* Tamiko Mason RN - 12/09/2021 10:18 AM EDT Images from the original note were not included. Radiation Therapy - Nursing Note (Consult) PATIENT NAME: Yefri Yanez PATIENT December 09, 2021 [facility] [place] FACILITY/LOCATION: [facility] Chief Complaint: Metastatic Renal Cell Cancer Reason for visit: Consult. Referring physician: Internal provider Dr. Cox, Dr. Wilburn Subjective Data: Patient denies pain at this time, he reports occasional pain in his lower back farnaz cramping sensation in the back of his thighs. He denies pain to the chest wall/rib. He reports that he was just discharged today from [facility]. He was admitted on Wednesday for shortness of breath. He reportedly received lasix and breathing treatments. He has an upcoming appt with his pin inserter regulator, Dr. Black at [facility]. Additional Data Do you want to see a Alumni Coordinator? No Are you interested in information about fertility? No Sexual Activity: Male: N/A Stress Scale: On a scale of 0 to 10, what number best describes how much distress you have experienced in the past week?(0 being no distress and 10 being extreme distress) 2 Social work notified: no GENERAL INFORMATION: PREVIOUS CHEMOTHERAPY: Pt started chemotherapy with Cabometyx + Nivolumab as per [facility] 1819 Trial. Reportedly this was held [...] oxygen in the home? No Employment: Retired [employer] ADVANCED DIRECTIVES: Does the patient have an [...] by: Tamiko Mason RN documented in this encounterKettering Health [facility]10-04-2022 History of Present illness Narrative* Alfredo Xavier [...] on ice. He was evaluated in the [facility]. As part of his work-up a [...] Alfredo Xavier MD cc: Daksha Turner (Sarah) [address] [place] [id number] documented in this encounterKettering Health Washington Township10-04-2022 Telephone encounter Note * Telephone Encounter - Noreen Morejon - 12/09/2021 9:28 AM EDT Patient unable to contact No voicemail to return call Invalid Number Letter sent CALI May Blind Installer [place] [address] [place] [address] [email or web address] [id number] Miscellaneous Notes* Telephone Encounter - Noreen Morejon - 12/09/2021 9:28 AM EDT Patient unable to contact No voicemail to return call Invalid Number Letter sent CALI May Blind Installer [facility] [address] [place] [address] [place] [address] [email or web address] documented in this [id number] Miscellaneous Notes* Telephone Encounter - Adriana Hodge [...] his Adriana Hodge MD documented in this encounterKettering Health Washington Township09-19-2022 Miscellaneous Notes* Telephone Encounter - America Schwartz RN - 11/24/2021 12:23 PM EDTSummary: Requesting pain medication Patient is requesting patient medication for pain in bilateral legs, states that it is a 6/10 constant cramping. Informed patient that nurse will discuss with physician and return call. Patient verbalized understanding. America Schwartz RN, BSN, OCN documented in this encounterKettering Health Washington Township09-15-2022 NoteReg[facility]09-15-2022 NoteRegency [facility]09-15-2022 History of Present illness Narrative* Marcelino Mayberry [...] 20, 2021 10:33 AM documented in this encounterKettering Health Washington Township09-14-2022 NoteHNO ID: [id number] Author: Haylee Wilburn MD Service: ? Author Type: Physician Type: Progress Notes Filed: 11/19/2021 9:58 AM Note Text: [facility] Progress Note SERVICE DATE: November 19, [...] started treatment with cabo + nivo on [facility] 1820 Trial on 08/08/2021 at [facility]. He has baseline HTN and developed worsening HTN after starting treatment. His cabo was held on 08/18/2021, resumed on 09/11/2021. The Nivo was held on 09/11/21 due to pneumonitis, and prednisone 60 mg daily was started and tapered off within about one month. Due to insurance change, he was taken off the trial and referred to [facility] Oncology to resume the treatment. He [...] is scheduled to have radical nephrectomy at [facility] soon after the repeat CT. STAGE: [...] surgery. Haylee Wilburn MD cc: Daksha Turner, [facility]09-14-2022 NoteHNO ID: [id number] Author: Haylee Wilburn MD Service: ? Author Type: Physician Type: Progress Notes Filed: 11/25/2021 3:53 PM Note Text: Note opened in [facility]09-14-2022 NoteHNO ID: [id number] Author: Bernarda Kee MA Service: ? Author Type: Accident Examiner Type: Progress Notes Filed: 11/19/2021 9:58 AM [...] BMI 37.59 kg/m? Physical Exam Assessment and [facility]09-14-2022 History of Present illness Narrative* Haylee Wilburn MD - 11/19/2021 9:33 AM EDT Images from the original note were not included. [facility] Progress Note SERVICE DATE: November 19, [...] started treatment with cabo + nivo on [facility] 1820 Trial on 08/08/2021 at [facility]. He has baseline HTN and developed worsening HTN after starting treatment. His cabo was held on 08/18/2021, resumed on 09/11/2021. The Nivo was held on 09/11/21 due to pneumonitis, and prednisone 60 mg daily was started and tapered off within about one month. Due to insurance change, he was taken off the trial and referred to [facility] Oncology to resume the treatment. He [...] is scheduled to have radical nephrectomy at [facility] soon after the repeat CT. STAGE: [...] Exam Assessment and Plan documented in this encounterKettering Health Washington Township09-01-2022 Miscellaneous Notes* Telephone Encounter - Tania Parekh RN - 11/06/2021 9:30 AM EDT Spoke with leasing representative from [facility], she is asking that we reach out to patient to have them deliver his Cabometyx. She stated they have called him multiple times, yet he will not answer, and the one time he did answer she went over who she was and patient hung up on her.Tania Parekh RN documented in this encounterKettering Health Washington Township08-22-2022 Miscellaneous Notes* Telephone Encounter - Lisa Christensen PA-C - 10/27/2021 3:14 PM EDT Images from the original note were not included. Lalo Black MD You; [facility] Rn Resource Pool 1 18 minutes [...] you for your help, Lisa Christensen PA-C [facility] PACC documented in this encounterKettering Health Washington Township08-22-2022 History and physical note * Lisa Christensen [...] 366 QTC Calculation (Bazett) 440 Calculated R Madison 68 Calculated T Madison 72 Impression ATRIAL FIBRILLATION NONSPECIFIC T WAVE [...] prior LISA Recent Results (from the past 65694 hour(s)) ECHO Collection Time: 09/04/21 11:03 AM [...] * * * Final * * * [facility] 08/05/2021 + + DIAGNOSTIC FINDINGS + [...] CAD (coronary artery disease) Assessment: Nonobstructive on [facility] 08/05/2021. METS: Climb a flight of [...] received from Dr. Black, see TE in [facility] on 10/27/2021. Called pt and informed [...] Initiated: Orders placed by surgeon/surgical service in [facility]. Planned Anesthetic: Per anesthesia choice Instructions Given to Patient: Instructions located in the after visit summary. Patient given verbal and written preop instructions and voices comprehension and compliance. SIGNATURE: Lisa Christensen PA-C PATIENT NAME: Yefri Yanez DATE: October 24, 2021 TIME: 11:08 AM documented in this encounterKettering Health Washington Township08-19-2022 Instructions* Patient Instructions* Lisa Christensen PA-C - 10/24/2021 11:20 AM EDT PATIENT PREOPERATIVE INSTRUCTIONS Adriana Hodge MD has scheduled you for your procedure at this surgery center: [facility] [place] Scheduling Office: [phone] --[address] [place] [address]. Please read below carefully for your personalized [...] NOT stop warfarin without consulting with your pin inserter regulator or prescribing physician. - Stop Vitamin E, [...] call the Wednesday before. Your surgeon s coding analyst will tell you what time to call the office. - If you have not reached the departmental coding analyst by 5 P.M., call [phone] after 5 P.M. the day before your surgery. Please be aware that emergency situations arise, which may delay or change your surgical time. If this happens, we will notify you as soon as possible and regret any inconvenience. If you already have an Advance Directive, please fax a copy to [phone] or email to for it to be [...] your chart that day. documented in this encounterKettering Health Washington Township08-16-2022 NoteRegency Hospital [facility]08-16-2022 NoteRegency [facility]08-16-2022 NoteRegency [facility]08-15-2022 NoteHNO ID: [id number] Author: Haylee Wilburn MD Service: ? Author Type: Physician Type: Progress Notes Filed: 10/21/2021 9:38 AM Note Text: [facility] Oncology Consult Note SERVICE DATE: October [...] the trial and referred to [facility] to resume the treatment. He [...] Negative. Respiratory: Negative. Cardiovascul (more content not included)...[facility]08-11-2022 Miscellaneous Notes* Telephone Encounter - Jayy Kenyon Pss - 10/16/2021 8:22 AM EDT Tayler from [facility] is requesting a referral for Dr. Haylee Wilburn, to have patient scheduled for Wednesday, 10/20. Patient has been identified by name and birthdate. Duration of symptoms: N/A Requesting response back: Call [phone] if needed. Jayy Fair October 16, 2021 documented in this encounterKettering Health Washington Township08-09-2022 Miscellaneous Notes* Telephone Encounter - Rahul Knight RN - 10/14/2021 5:09 PM EDT Pt called back to discuss his questions regarding insurance coverage for [facility]. Pt did not answer, sovoice message left with instructions to call back. Also attempted to call pt's , also with no answer. Voice message left for spouse as well. Fazal Knight RN, BSN documented in this encounterKettering Health Washington Township08-09-2022 Miscellaneous Notes* Telephone Encounter - Lsia Stark - 10/14/2021 2:46 PM EDT Yefri Theodora Yanez('s) spouse is calling Kenneth Chester MD today regarding Patient Question Patient has been identified by name and birthdate. Would like to know why Yefri wasn't approved for research study Duration of symptoms: N/A Requesting response back: call at home [phone] (home) Lisa Stark October 14, 2021 documented in this encounterKettering Health Washington Township08-04-2022 [facility]08-04-2022 [facility]08-04-2022 Nurse Note* Ariadne Wood RN - 10/09/2021 10:22 AM EDT Additional intake questions: Has the patient had fever, nausea, vomiting, diarrhea, constipation, fatigue for > 1 week? Yes, fatigue Does the patient have a decreased appetite? No Does patient want to see a Alumni Coordinator? No (yes to any of above refer patient to schedulers for dietitian appointment) ) Does patient have any new or increased numbness or tingling of extremities? No Is patient interested in fertility information? No Does patient need any prescription refills? No Does patient have an advanced directive in place? No, Patient referred to Resource Center documented in this encounterKettering Health [facility] Township08-04-2022 History of Present illness Narrative* Godfrey Ohara APRN.CROWN ATTACHER - 10/09/2021 9:45 AM EDT Images from [...] Abs Lymph 1.00 - 4.00 k/uL 2.33 Andrews% % 4.8 Abs Andrews <0.87 k/uL 0.35 Eosin% % 0.4 Abs [...] Started treatment with cabo + nivo on [facility] 1820 on 08/08/2021. He has baseline [...] out of network to receive care at [facility] - Patient is currently on warfarin for his atrial fibrillation, which is contraindicated per the clinical trial - Patient withdrew consent from [facility] 1820 and all follow up related [...] which included preparing to see the patient, [id number] patient care, completing clinical documentation, obtaining and/or [...] Oncology Advanced Practice Provider documented in this encounterKettering Health [facility]08-04-2022 History of Present illness Narrative* Rahul Knight RN - 10/09/2021 9:20 AM EDT IRB#: [id number], [facility], Cyto-KIK; TRIAL (CYTO reductive surgery in Kidney cancer plus Immunotherapy (nivolumab) and targeted Kinase inhibition (cabozantinib) Cycle: 2 Week: 1 Phase: 2 Cohort: 2 Pt is here for withdrawal of consent of IRB# [id number] . PE completed by Godfrey Ohara APRN, CROWN ATTACHER. Was PE completed by a Fellow No [...] Anxiety r/t procedure 07/15/2021 08/06/21 Potassium Chloride* ([id number]) 20 MEQ PACKET Active 20 MEQ PO [...] Fazal Knight RN, BSN documented in this encounterKettering Health Washington Township07-25-2022 Miscellaneous Notes* Telephone Encounter - Sheela Chisholm RN - 09/29/2021 2:05 PM EDT Called patient for follow up from recent hospital discharge but no answer, message left on voicemail including resource nurse phone number. documented in this encounterKettering Health Washington Township07-25-2022 NoteRegency Hospital [facility]07-25-2022 History of Present illness Narrative* Safia Carr, [facility] - 09/29/2021 7:19 AM EDT TRANSITION CARE MANAGEMENT (TCM) HEART FAILURE PHARMACY CONTACT Provider Action/FYI: TCM Medication Reconciliation partially completed for patient. See medication list table below for details. Medications discussed per patient preference outlined in bold in table below. Sent bunkersofa secure chat to Andre Harden CNP: 1) [...] Nephro for plan on Prednisone taper. Called [facility] pharmacy and ensured that Rx for Torsemide [...] take his insurance card. Pt to try [facility] instead of [facility]. Patient Workup: HF medication classes present on [...] oz) Patient was sent a message via [employer] including the link to the [facility] education video: Yes Initial contact with patient post discharge, spoke to patient and spouse, Miya,. Patient identified by name and . Summary: -Pt discharged from [facility] on 09/26/21. -Follow up appointment on 10/20/21. -Medication review done Partial medication review completed - per patient preference -Admitted for acute systolic heart failure Patient was contacted by telephone, identified for pharmacist care from discharge call list, and gave consent to manage medications related to transitional care management pursuant to the consult agreement with the [facility]. Patient Concerns: Review and discussion of medications [...] subcutaneously q 12 HR. Re-initiated, Sent to [facility], Pt has filled and is taking as prescribed. PharmD called [facility] and verified that pt filled Rx for [...] tablets by mouth once daily. Sent to [facility], Pt has filled and is taking as prescribed. Pt's spouse will call [employer]ats [employer] to determine the plan on this taper [...] tablets by mouth once daily. Sent to [facility], Pt has filled and is taking as [...] (40mg) by mouth once daily. Sent to [facility], Pt has filled and is taking as prescribed. PharmD called [facility] and verified that Torsemide Rx was filled as generic (pharmacy filled as generic) warfarin (COUMADIN) 5 mg tablet Take 1 tablet by mouth once daily. Sent to [facility], Pt has filled and is taking as prescribed. INR Date Value Ref Range Status 09/26/2021 1.3 0.9 - 1.3 Final Comment: Vitamin K Antagonist (VKA) Therapeutic Range: INR 2 to 3 (Target INR of 2.5) Note: For patients treated with VKA drugs, such as warfarin, the [place] [employer] 2012 Guideline recommends [...] Chest 2012, 141:7S-47S Caitie RA, et al. [facility] 2017, 70: 252-289 Pt had appt with PCP to check INR on 09/29/21 (INR was 1.9) and will have f/u INR on 10/03/21 with PCP. Pt's spouse states that new dose is Warfarin 6mg daily. Preferred pharmacy: e- [facility]/pharmacy #[id number] [place] [address] - [address] [facility] [phone] [facility] [address] [address] [facility] [address] [facility] [address] [facility] [address] e- [facility]/pharmacy #[id number] [place] [address] - [address] - [phone] [place] [address] [address] [facility] [address] Estimated Creatinine Clearance: 104.4 mL/min (based on [...] Date(s) Administered COVID-19 vaccine, age 12+ yr (PFIZER-BIONTUniteam Communication - PURPLE TOP) 05/25/2020 06/15/2020 01/21/2021 Influenza Seasonal Inj Age 3+ 12/06/2013 12/06/2013 Tdap (Age 7+) 07/25/2018 Additional follow up: Appointments for Next 60 Days Date Time Provider Location Dept Phone 10/06/2021 12:30 PM SURGICAL REGISTRATION 1 10/09/2021 8:45 AM LAB PORT/FLORES GALLAGHER 1 Mn CA Bldg [phone] 10/09/2021 9:45 AM GODFREY CLAYTON CA Bldg [phone] 10/09/2021 9:45 AM GODFREY OHARA Mn CA Bldg [phone] 10/09/2021 10:15 AM CHAIR 8 /MELANOMA/SARCOMA Mn CA Bldg [phone] 10/20/2021 11:30 AM TYRONE LISA Mn J Bldg [phone] 10/23/2021 8:40 AM MRI 6 RADIO MAIN Q (I-STAT/1.5T/3T) Mn Q Bldg [phone] 10/23/2021 9:[address] PREP MAIN CA Mn CA Bldg [phone] 10/23/2021 10:[address] MAIN CA Mn CA Bldg [phone] 10/23/2021 11:30 AM LAB PORT/PARSONS CULLEN MAIN CA 1 Mn CA Bldg [phone] 10/23/2021 1:30 PM KENNETH CHESTER Mn [place] Bldg [phone] 10/23/2021 1:30 PM GODFREY CLAYTON Mn CA Bldg [phone] 10/27/2021 11:30 AM PACC MAIN 2 Mn A Bldg [phone] 10/27/2021 12:30 PM ADMIT INTERVIEW A12 PSSC A Bldg 10/27/2021 1:00 PM LAB A15 MAIN Mn A Bldg [phone] 10/27/2021 1:30 PM EKG17 MAIN Mn A Bldg [phone] 11/01/2021 11:[address] [facility] [phone] Interventions Made: Patient education/Medication counseling, Adherence counseling and Medication access issue resolved Pharmacist Recommendations Made Lab request/Therapeutic drug monitoring Care Coordination: None at this time Time spent on patient: 60-75 minutes Safia Carr RPh September 29, 2021 7:19 AM documented in this encounterKettering Health Washington Township07-22-2022 NoteRegency [facility]07-22-2022 NoteReg[facility]07-21-2022 NoteReg[facility]07-20-2022 NoteReg[facility]07-19-2022 Note [facility]07-18-2022 NoteReg[facility]07-18-2022 History of Present illness Narrative* Riccardo Hatfield PA-C - 09/22/2021 12:00 PM EDT Images from the original note were not included. [facility] [place] [facility] Department of Cardiovascular Medicine SECTION OF CLINICAL CARDIOLOGY OUTPATIENT VISIT DATE September 22, 2021 OUTPATIENT VISIT TYPE ESTABLISHED PRIMARY CARE PHYSICIAN: Daksha Turner ([facility]) [address] [place] [address] REFERRING PHYSICIAN: Angela Khan [address] [facility] [address] CHIEF COMPLAINT: Established Pt Hospital Follow Up HISTORY OF PRESENT ILLNESS: Mr. Yanez is a 56 year old male who presents today for a cardiovascular medicine follow-up visit. Pt is an established pt of Dr. Black Pt has a past medical history of: 1. 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: [facility] Transcribe Date/Time: Sep 02 2021 4:28P [...] with more than 50% of the total [id number] time of the visit in counseling / coordination of care. CONTACT INFORMATION: Riccardo Hatfield PA-C September 22, 2021 documented in this encounterKettering Health Washington Township07-15-2022 Miscellaneous Notes* Telephone Encounter - Rahul Knight RN - 09/19/2021 9:31 AM EDT [id number], Cyto-KIK; TRIAL (CYTO reductive surgery in Kidney cancer plus Immunotherapy (nivolumab) and targeted Kinase inhibition (cabozantinib) Pt called to report that he's been experiencing diarrhea (approx 6 episodes per day) accompanied bystomach pain, x 2 days. Instructed the pt to begin taking Imodium as needed, and to drink extra fluids to prevent dehydration. Pt verbalized understanding. Sent a follow up [employer] message to the pt.Also reached out to Dr. Chester to inform him of new symptoms, recommendations made to pt, and to inquire whether further action is needed. Will call pt back with any new instructions from Dr. Chester. Fazal Knight RN, BSN documented in this encounterKettering Health Washington Township07-12-2022 Miscellaneous Notes* Telephone Encounter - Rahul Knight [...] symptoms. [place] Sharma, RN documented in this encounterKettering Health Washington Township07-12-2022 Miscellaneous Notes* Telephone Encounter - Rahul Knight [...] Fazal Knight RN, BSN documented in this encounterKettering Health Washington Township07-07-2022 NoteRegency [facility]07-07-2022 NoteReg[facility]07-07-2022 History of Present illness Narrative* Kenneth Chester [...] Abs Lymph 1.00 - 4.00 k/uL 1.12 Andrews% % 8.1 Abs Andrews <0.87 k/uL 0.53 Eosin% % 0.5 Abs [...] Started treatment with cabo + nivo on [facility] 1820 on 08/08/2021. He has baseline [...] note. Kenneth Chester MD documented in this encounterKettering Health Washington Township07-07-2022 Nurse Note* Ariadne Wood RN - 09/11/2021 1:29 PM EDT Additional intake questions: Has the patient had fever, nausea, vomiting, diarrhea, constipation, fatigue for > 1 week? Yes, fatigue and SOB Does the patient have a decreased appetite? No Does patient want to see a Alumni Coordinator? No (yes to any of above refer patient to schedulers for dietitian appointment) ) Does patient have any new or increased numbness or tingling of extremities? No Is patient interested in fertility information? No Does patient need any prescription refills? No Does patient have an advanced directive in place? No, Patient referred to Resource Center documented in this encounterKettering Health [facility]07-07-2022 History of Present illness Narrative* Godfrey Clayton RN - 09/11/2021 1:17 PM EDT IRB#: [id number], [facility], Cyto-KIK; TRIAL (CYTO reductive surgery [...] chloride (KLOR-CON) 20 mEq packet Potassium Chloride* ([id number]) 20 MEQ PACKET Active 20 MEQ PO [...] information Godfrey Clayton RN documented in this encounterKettering Health Washington Township07-01-2022 Miscellaneous Notes* Telephone Encounter - Marysol Lane RN - 09/05/2021 4:07 PM EDT Called Yefri for more information regarding message received. Call back number given. * Telephone Encounter - Rakel Saleem - 09/05/2021 2:16 PM EDT Yefri Yanez is calling Kenneth Chester MD today regarding Hat Renovator - Other States that when patient was in the hospital Dr Khan prescribed Lobenos and states that is very costly. Asking for a generic or something different that is affordable. Patient has been identified by name and birthdate. Duration of symptoms: N/A Requesting response back: call at home [phone] (home) [phone] (cell) Rakel [place] September 05, 2021 documented in this encounterKettering Health [facility]06-29-2022 NoteReg[facility]06-29-2022 NoteReg[facility]06-28-2022 NoteReg[facility]06-28-2022 NoteReg[facility]06-28-2022 Note [facility]-28-2022 NoteReg[facility]06-28-2022 History of Present illness Narrative* Godfrey Clayton RN - 09/02/2021 4:55 PM EDT IRB#: [id number], [facility] 1820, Cyto-KIK; TRIAL (CYTO reductive surgery in Kidney cancer plus Immunotherapy (nivolumab) and targeted Kinase inhibition (cabozantinib) [facility] of breath. Patient endorses increased [...] r/t nivo, likelyr/t heart failure, Action:referral to [facility] clinic, CXR, monitor Outcome:Changed to Grade 3 [...] Outcome:ongoing Godfrey Clayton RN documented in this encounterKettering Health Washington Township06-28-2022 Nurse Note* Warren Garvin LPN - 09/02/2021 4:41 PM EDT [facility] Emergency Response Team Date of the Event: September 02, 2021 Time of the Event:1641 Select Floor / Area: [facility] - Clinic Reason/Chief Complaint for Emergency Call (Check all that apply): Respiratory: New onset difficulty breathing History of Events Prior to DANIEL Activation and any treatment administered prior to DANIEL Team arrival? PT presented to [facility] clinic with SOB for last week. Pt [...] No Does patient want to see a Alumni Coordinator? No (yes to any of above refer patient to schedulers for dietitian appointment) ) Does patient have any new or increased numbness or tingling of extremities? No Is patient interested in fertility information? No Does patient need any prescription refills? No Does patient have an advanced directive in place? No, Patient refused referral to Social Work or Resource Center documented in this encounterKettering Health [facility]06-28-2022 NoteReg[facility]06-28-2022 NoteReg[facility]06-28-2022 History of Present illness Narrative* Sybil Skinner [...] 2021 TIME: 3:24 PM documented in this encounterKettering Health [facility]06-28-2022 History of Present illness Narrative* Daksha Melo PA-C - 09/02/2021 2:05 PM EDT [facility] [place] Rapid Access Clinic (TRA) REQUESTING PROVIDER: Godfrey [...] No rash. LABS / TESTING while in [facility] clinic: Component Latest Ref Rng & Units [...] Abs Lymph 1.00 - 4.00 k/uL 1.42 Andrews% % 6.4 Abs Andrews <0.87 k/uL 0.42 Eosin% % 0.3 Abs [...] 02, 2021 2:05 PM documented in this encounterKettering Health [facility]06-28-2022 History of Present illness Narrative* Barber Mtz, [...] 02, 2021 1:56 PM documented in this encounterKettering Health [facility] Township06-28-2022 NoteRegency [facility]06-27-2022 Miscellaneous Notes* Telephone Encounter - Adriana Hodge [...] the anaestheic including but not limited to IN, CVA, DVT, and PE, and the risks [...] proceed. Adriana Hodge MD documented in this encounterKettering Health [facility] Township06-22-2022 NoteReg[facility]06-14-2022 NoteReg[facility]06-14-2022 History of Present illness Narrative* Godfrey Clayton, JOHN - 08/19/2021 2:17 PM EDT [id number], Cyto-KIK; TRIAL (CYTO reductive surgery [...] chloride (KLOR-CON) 20 mEq packet Potassium Chloride* ([id number]) 20 MEQ PACKET Active 20 MEQ PO [...] information Godfrey Clayton RN documented in this encounterKettering Health [facility] Township06-14-2022 NoteRegency [facility]06-14-2022 NoteReg[facility]06-14-2022 Nurse Note* Ariadne Wood RN - 08/19/2021 11:33 AM EDT Reviewed and confirmed with patient that there were no changes in the the nursing assessment and vitals that were completed on August 19, 2021 during previous provider appointment. Ariadne Wood RN documented in this encounterKettering Health [facility] Township06-14-2022 History of Present illness Narrative* Godfrey Ohara [...] Patient presents today for C1D15 visit of [facility] 1820. Since last visit his BP has been elevated, his cabo was stopped on 08/18/21 and he saw cardiology prior to his oncology appointment today. 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 He has baseline [...] which included preparing to see the patient, [id number] patient care, completing clinical documentation, obtaining and/or [...] Ohara APRN.BEATRICE Research SCOTT documented in this encounterKettering Health [facility]06-14-2022 History of Present illness Narrative* Lalo Black MD - 08/19/2021 10:14 AM EDT Images from the original note were not included. [facility] [place] Miah Espitia Department of Cardiovascular Medicine SECTION OF CLINICAL CARDIOLOGY OUTPATIENT VISIT DATE August 19, 2021 OUTPATIENT VISIT TYPE ESTABLISHED PRIMARY CARE PHYSICIAN: Daksha Turner ([facility]) [address] [place] [id number] REFERRING PHYSICIAN: Lalo Black [address] [facility] [address] CHIEF COMPLAINT: No chief complaint on file. HISTORY OF PRESENT ILLNESS: Mr. Yanez is a 56 year old male who presents today for a cardiovascular medicine follow-up visit. Patient was last time seen in the clinic on July 31, 2021. Patient has a history of clear-cell renal carcinoma with metastases to the lung.Currently patient is enrolled in clinical trial, see [facility] 182, with Mati [planning C1 D1 [...] fellow represents my interpretation of the study. 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: PSCAbdirahman Transcribe Date/Time: Aug 17 2021 7:12P [...] INFORMATION: Lalo Black M.D, PhD, FRCPC, FACC Farm Boss at [facility] Associate Marina Manager Internal Medicine Residency Marina Managertuber machine cutter Education Internal Medicine Residency Marina Manager of Consult Service Marina Manager for Elective Students/Residents at [facility] Miah Espitia Department of Cardiovascular Medicine [facility] [place] [facility] Desk [address] [address] Office Office Appointments: [phone] This medical note has been dictated using voice recognition system. Grammatical and/or syntax errors may be present and therefore the note should be interpreted accordingly. Should you have any questions and/or concerns, please do not hesitate to contact my office. documented in this encounterKettering Health [facility] Township06-13-2022 Miscellaneous Notes* Telephone Encounter - Radha Ceballos RN - 08/18/2021 2:51 PM EDT Good Afternoon Mr. Yanez, Thank you for sending us in your blood pressure readings. Dr. Black will address these readings tomorrow at your appointment. Looking forward to seeing you then! I hope you have a wonderful day! JOHN Garcia documented in this encounterKettering Health [facility] Township06-13-2022 Miscellaneous Notes* Telephone Encounter - Godfrey Clayton RN - 08/18/2021 10:25 AM EDT [facility]B#: [id number], Cyto-KIK; TRIAL (CYTO reductive surgery [...] Outcome:Resolved Godfrey Clayton RN documented in this encounterKettering Health Washington Township06-13-2022 Miscellaneous Notes* Telephone Encounter - Godfrey Ohara APRN.CNP - 08/18/2021 9:43 AM EDT This encounter was opened in error. @[email or web address]@ documented in this encounterKettering Health Washington Township06-12-2022 NoteRegency Hospital [facility]06-12-2022 NoteReg[facility]06-08-2022 Miscellaneous Notes * Telephone Encounter - Godfrey Clayton RN - 08/13/2021 2:55 PM EDT IRB#: [id number][facility], Cyto-KIK; TRIAL (CYTO reductive surgery in Kidney cancer plus Immunotherapy (nivolumab) and targeted Kinase inhibition (cabozantinib) Called patient to review recent blood pressure readings. Patient stated his blood pressure yesterday and today have been between 130s-140s/80s. Instructed patient to still follow up with his pin inserter regulator with previous readings. Patient states of feeling well with no symptoms. Instructed patient to call with any new or worsening symptoms. Patient verbalized understanding. Godfrey Clayton RN documented in this encounterKettering Health [facility]06-07-2022 Miscellaneous Notes* Telephone Encounter - Godfrey Clayton RN - 08/12/2021 2:40 PM EDT IRB#: [id number][facility], Cyto-KIK; TRIAL (CYTO reductive surgery in Kidney cancer plus Immunotherapy (nivolumab) and targeted Kinase inhibition (cabozantinib) Patient called to inform nurse of recent blood pressure readings. Patient reported that his blood pressure has been running between 140-150s/100s since last 08/09/2021. After consulting , instructed patient to follow up with his pin inserter regulator to adjust blood pressure medications. This nurse updated pin inserter regulator, Dr. Black. Patient denied having any chest pain, shortness of breath, dizziness, or heart palpations. Instructed patient to be evaluated by local ER if blood pressure continues to stay elevated or becomes symptomatic. Instructed patient to call for any new or worsening symptoms. Patient verbalized understanding. Godfrey Clayton RN documented in this encounterKettering Health [facility] Township06-07-2022 Miscellaneous Notes* Telephone Encounter - Nettie Benjamin [...] EDT August 12, 2021 Patient Contact Number: [phone] Patient last seen within the last year: [...] days. Yes Wojciech Menendez documented in this encounterKettering Health Washington Township06-06-2022 Miscellaneous Notes* Telephone Encounter - Hermila Ruiz RN - 08/11/2021 12:32 PM EDT IRB#: [id number][facility], Cyto-KIK; TRIAL (CYTO reductive surgery in Kidney cancer plus Immunotherapy (nivolumab) and targeted Kinase inhibition (cabozantinib) Called pt again to follow up. No answer. Left VM with contact info. Hermila Ruiz RN documented in this encounterKettering Health Washington Township06-06-2022 Miscellaneous Notes* Telephone Encounter - Hermila Ruiz RN - 08/11/2021 10:09 AM EDT IRB#: [id number][facility], Cyto-KIK; TRIAL (CYTO reductive surgery in Kidney cancer plus Immunotherapy (nivolumab) and targeted Kinase inhibition (cabozantinib) Cycle: 1 Week: 1 Phase: 2 Cohort: 2 Called pt to follow up on start of treatment with clinical trial. No answer. Left VM with contact info. Hermila Ruiz RN documented in this encounterKettering Health [facility] Township06-03-2022 NoteReg[facility]06-03-2022 NoteReg[facility]06-03-2022 NoteReg[facility]06-03-2022 History of Present illness Narrative* Godfrey Ohara APRN.CROWN ATTACHER - 08/08/2021 9:45 AM EDT Images from the original note were not included. [facility] [place] Progress Note Oncology Clinic Patient name: Yefri Yanez : 1965 Date of Service: August 08, 2021 PCP: Jillian Maurer DO Referring Provider: Adriana Hodge MD. SUBJECTIVE CHIEF COMPLAINT: [facility] HPI: This is a 56 [...] Patient presents today for C1D1 visit of [facility] 1820 with cabo and nivo. 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 Tobacco: Active cigar smoker MEDICATIONS: [...] Abs Lymph 1.00 - 4.00 k/uL 1.61 Andrews% % 6.6 Abs Andrews <0.87 k/uL 0.40 Eosin% % 0.7 Abs [...] start treatment with cabo + nivo on [facility] 1820 on 07/24/2021 - Start C1D1 of cabo + nivo today (08/08/2021) per [facility] 1820 - RTC per protocol HTN [...] which included preparing to see the patient, [id number] patient care, completing clinical documentation, obtaining and/or [...] Ohara APRN.BEATRICE Research SCOTT documented in this encounterKettering Health [facility]06-03-2022 History of Present illness Narrative* Godfrey Clayton RN - 08/08/2021 9:45 AM EDT IRB#: [id number][facility], Cyto-KIK; TRIAL (CYTO reductive surgery [...] chloride (KLOR-CON) 20 mEq packet Potassium Chloride* ([id number]) 20 MEQ PACKET Active 20 MEQ PO [...] Navigator Godfrey Clayton RN documented in this encounterKettering Health Washington Township06-03-2022 Nurse Note* Ariadne Wood RN - 08/08/2021 9:20 AM EDT Additional intake questions: Has the patient had fever, nausea, vomiting, diarrhea, constipation, fatigue for > 1 week? No Does the patient have a decreased appetite? No Does patient want to see a Alumni Coordinator? No (yes to any of above refer patient to schedulers for dietitian appointment) ) Does patient have any new or increased numbness or tingling of extremities? No Is patient interested in fertility information? No Does patient need any prescription refills? No Does patient have an advanced directive in place? No, Patient referred to Resource Center documented in this encounterKettering Health [facility]06-01-2022 NoteReg[facility]06-01-2022 History of Present illness Narrative* Godfrey Ohara APRN.CNP - 08/06/2021 3:37 PM EDT RECIST TUMOR MEASUREMENTS IRB #: [id number] Image Modality: CT Image Date: CT Chest from 07/21/2021. CT A/P from 08/06/2021 Date of Baseline Scan: CT Chest from 07/21/2021. CT A/P from 08/06/2021 Date of Comparison Scan: NA Research Nurse/Pager: Godfrey Ohara APRN.CNP [phone] Baseline Measurement Target Lesion Site Measurements: Baseline [...] reviewed and approved by Dr. Kenneth Ohara APRN.CROWN ATTACHER documented in this encounterKettering Health [facility] Township06-01-2022 NoteReg[facility]06-01-2022 NoteReg[facility]06-01-2022 NoteReg[facility]06-01-2022 NoteReg[facility]06-01-2022 Note [facility]06-01-2022 History of Present illness Narrative* Godfrey Ohara APRN.CNP - 08/06/2021 9:45 AM EDT IRB#: [id number][facility], Cyto-KIK; TRIAL (CYTO reductive surgery in Kidney cancer plus Immunotherapy (nivolumab) and targeted Kinase inhibition (cabozantinib) Phase: 2 Cohort: 2 Pt presents for Screening Visit of IRB# [id number] . Informed Consent signed on 07/15/2021, prior to anystudy related procedures being performed that are not SOC. PE completed by Godfrey Ohara APRN.CROWN ATTACHER. Was PE completed by a Fellow No [...] chloride (KLOR-CON) 20 mEq packet Potassium Chloride* ([id number]) 20 MEQ PACKET Active 20 MEQ PO [...] RTC on 08/07/2021 for Day 1 of [facility] 1819 Study. Patient expresses understanding to call with any questions or concerns in the interim and understanding of all instructions provided. Patient confirmed to have contact information for Research Nurse and Dr. Zhao, along with the 24 hour On- Call number for the On-Call Oncology Fellow ([phone]). Godfrey Ohara APRN.CNP * Godfrey Ohara APRN.CNP - 08/06/2021 9:45 AM EDT Images from the original note were not included. [facility] Progress Note Oncology Clinic Patient name: Yefri Yanez : 1965 Date of Service: August 06, 2021 PCP: Jillian Maurer DO Referring Provider: Adriana Hodge MD. 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 He presents today for repeat screening visit for [facility] 1820 . - RTC on C1D1 [...] which included preparing to see the patient, [id number] patient care, completing clinical documentation, obtaining and/or [...] Ohara APRN.BEATRICE Research SCOTT documented in this encounterKettering Health [facility]06-01-2022 History of Present illness Narrative* Godfrey Clayton RN - 08/06/2021 9:35 AM EDT IRB#: [id number][facility], Cyto-KIK; TRIAL (CYTO reductive surgery [...] note. Godfrey Clayton RN documented in this encounterKettering Health [facility] Township05-29-2022 Miscellaneous Notes* Telephone Encounter - Raomna Toney RN - 08/03/2021 11:17 AM EDT [...] In Department of CARDIOLOGY. documented in this encounterKettering Health Washington Township05-26-2022 NoteRegency Hospital [facility]05-26-2022 History of Present illness Narrative* Lalo Black MD - 07/31/2021 1:20 PM EDT Images from the original note were not included. [facility] [place] Miah Espitia Department of Cardiovascular Medicine SECTION OF CLINICAL CARDIOLOGY OUTPATIENT VISIT DATE July 31, 2021 OUTPATIENT VISIT TYPE ESTABLISHED PRIMARY CARE PHYSICIAN: Daksha Turner ([facility]) [address] [place] [address] REFERRING PHYSICIAN: Lalo Black [address] [facility] [address] CHIEF COMPLAINT: No chief complaint on file. HISTORY OF PRESENT ILLNESS: Mr. Yanez is a 56 year old male who presents today for a cardiovascular medicine follow-up visit. The first time he spoke with the patient was back on July 22, 2021. Patient has oncological and pathologically confirmed clear-cell renal carcinoma. 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 At this time he is at [employer] class II in functional status [...] INFORMATION: Lalo Black M.D, PhD, FRCPC, FACC Farm Boss at [facility] Associate Marina Manager Internal Medicine Residency Marina Managertuber machine cutter Education Internal Medicine Residency Marina Manager of Consult Service Cardio[facility] Miah Espitia Department of Cardiovascular Medicine [facility] [place] [facility] Desk [phone] [address] Office Office Appointments: [phone] This medical note has been dictated using voice recognition system. Grammatical and/or syntax errors may be present and therefore the note should be interpreted accordingly. Should you have any questions and/or concerns, please do not hesitate to contact my office. documented in this encounterKettering Health [facility]05-25-2022 Miscellaneous Notes* Telephone Encounter - Tayler Moss [...] In Department of CARDIOLOGY. documented in this encounterKettering Health [facility] Township05-24-2022 Miscellaneous Notes* Telephone Encounter - Godfrey Clayton RN - 07/29/2021 4:39 PM EDT IRB#: [id number], [facility], Cyto-KIK; TRIAL (CYTO reductive surgery [...] understanding. Godfrey Clayton RN documented in this encounterKettering Health [facility] Township05-20-2022 Miscellaneous Notes* Telephone Encounter - Godfrey Clayton RN - 07/25/2021 2:58 PM EDT IRB#: [id number], [facility] 1820, Cyto-KIK; TRIAL (CYTO reductive surgery [...] understanding. Godfrey Clayton RN documented in this encounterKettering Health [facility] Township05-20-2022 [facility]05-20-2022 History of Present illness Narrative* Rahul Loz[place] - 07/25/2021 10:36 AM EDTSummary: RECIST 1.1 Abstract for Addendum RESEARCH IRB #: [id number] TUMOR METRICS: RECIST 1.1 Baseline Measurement Research Nurse/Pager: America Clayton [phone] Date of Baseline Scan: 06/27/2021 Date of Comparison Scan: NA Addendum Please see Abstract in EPIC Dated: NA Rahul Bennett [id number] documented in this encounterKettering Health [facility] Township05-19-2022 Instructions* Patient Instructions* Godfrey Ohara APRN.CNP - 07/24/2021 3:33 PM EDT Please schedule as a first time treatment visit type. documented in this encounterKettering Health [facility] Township05-19-2022 Miscellaneous Notes* Telephone Encounter - Godfrey Ohara APRN.CNP - 07/24/2021 3:29 PM EDT Called and spoke with patient. Nivolumab has been approved. Awaiting approval and delivery of cabo per SOC. Will schedule him to see myself on 08/01/2021 for C1D1 of cabo and nivo. Godfrey Ohara APRN.CNP Research SCOTT documented in this encounterKettering Health [facility] Township05-19-2022 NoteRegency [facility]05-19-2022 NoteReg[facility]05-19-2022 History of Present illness Narrative* Godfrey Ohara APRN.CNP - 07/24/2021 9:56 AM EDT Images from the original note were not included. [facility] [place] Progress Note Oncology Clinic Patient name: Yefri Yanez : 1965 Date of Service: July 24, 2021 PCP: Jillian Maurer DO Referring Provider: Adriana Hodge MD. SUBJECTIVE CHIEF COMPLAINT: [facility] HPI: This is a 56 [...] HISTORY: Patient presents today for C1D1 of [facility] 1820 with cabo and nivo. 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 [...] which included preparing to see the patient, [id number] patient care, completing clinical documentation, obtaining and/or [...] Ohara APRN.BEATRICE Research SCOTT documented in this encounterKettering Health [facility]05-19-2022 History of Present illness Narrative* Godfrey Clayton RN - 07/24/2021 9:45 AM EDT [facility]B#: [id number], Cyto-KIK; TRIAL (CYTO reductive surgery [...] chloride (KLOR-CON) 20 mEq packet Potassium Chloride* ([id number]) 20 MEQ PACKET Active 20 MEQ PO [...] Navigator Godfrey Clayton RN documented in this encounterKettering Health [facility] Township05-18-2022 Miscellaneous Notes* Telephone Encounter - Godfrey Clayton [...] understanding. Godfrey Clayton RN documented in this encounterKettering Health [facility] Township05-17-2022 NoteRegency [facility]05-17-2022 History of Present illness Narrative* Lalo Black MD - 07/22/2021 1:51 PM EDT [facility] [place] Department of Cardiovascular Medicine TELEPHONE VISIT PROGRESS [...] patient is enrolling in a clinical trial, [facility]20, with chrystalo and kyao (planning [...] minutes Lalo Black MD documented in this encounterKettering Health [facility] Township05-16-2022 Miscellaneous Notes* Telephone Encounter - Zaynab Johnston [...] information for future reference. documented in this encounterKettering Health [facility] Township05-16-2022 NoteRegency [facility]Reg[facility] History of Present illness Narrative* RT Mendez(R) [...] 2021 TIME: 9:09 AM documented in this encounterK[facility] History of Present illness Narrative* Liliam Ramirez [...] 2021 TIME: 9:05 AM documented in this encounterK[facility]05-16-2022 History of Present illness Narrative* Godfrey Clayton [...] INDEX Godfrey Clayton RN documented in this encounterKettering [facility]05-13-2022 [facility]Reg[facility] History of Present illness Narrative* Godfrey Ohara APRN.CROWN ATTACHER - 07/18/2021 12:46 PM EDT IRB#: [id number], [facility]# [facility] [id number] Phase: II Cohort: 2 Encounter for Eligibility of IRB# [id number] . Informed Consent signed on 07/14/2021, prior to any study related procedures being performed that are not SOC. PE completed by Godfrey Ohara APRN.CROWN ATTACHER. Was PE completed by a Fellow No [...] Cardiovascular disorders including: Congestive heart failure (CHF): [place] [employer] Association (NYHA) Class III (moderate) or Class IV (severe) at the time of screening. Patient denied on 07/15/2021. Not found on examination by KEYUR Mann.CROWN ATTACHER. Concurrent uncontrolled hypertension defined as sustained BP [...] on 07/15/2021 24. Active central nervous system (COLORING CHECKER) metastases Patient denied on 07/15/2021. No metastases [...] chloride (KLOR-CON) 20 mEq packet Potassium Chloride* ([id number]) 20 MEQ PACKET Active 20 MEQ PO [...] RTC on 07/24/2021 for Day 1 of [facility] 1820 Study. Godfrey Ohara APRN.CNP documented in this encounterKettering [facility]05-10-2022 [facility]Reg[facility]10-[facility]-10-[facility]-10-[facility] Note [facility] History of Present illness Narrative* Rahul Knight [...] as discussed with Dr. Kenneth Chester MD [place]-- . All study related questions have been [...] informed consent. Time: 1530 Godfrey Ohara APRN, CROWN ATTACHER [place] Sharma, RN * Godfrey Ohara APRN.BEATRICE - 07/14/2021 3:55 PM EDT Saw patient today for RN consent visit for [facility] 1820. Wrote for Ativan 1 mg as needed prior to MRI Kidney and MRI brain. Godfrey Ohara APRN.CNP Research SCOTT documented in this encounterKettering [facility]05-09-2022 Nurse Note* Ariadne Wood RN - 07/14/2021 2:41 PM EDT Additional intake questions: Has the patient had fever, nausea, vomiting, diarrhea, constipation, fatigue for > 1 week? Yes, fatigue Does the patient have a decreased appetite? No Does patient want to see a Alumni Coordinator? No (yes to any of above refer patient to schedulers for dietitian appointment) ) Does patient have any new or increased numbness or tingling of extremities? No Is patient interested in fertility information? No Does patient need any prescription refills? No Does patient have an advanced directive in place? No, Patient referred to [facility] documented in this encounterK[facility]05-06-2022 Miscellaneous Notes* Telephone Encounter - Godfrey Clayton RN - 07/11/2021 4:28 PM EDT Cyto-KIK; TRIAL (CYTO reductive surgery in Kidney cancer plus Immunotherapy (nivolumab) and targeted Kinase inhibition (cabozantinib) This nurse called spouse, Primo, to inform her of patients upcoming appointment date, time and location. Encouraged spouse to call with any questions or concerns. Spouse verbalized understanding. Godfrey Clayton RN documented in this encounterKettering Health [facility]05-06-2022 Miscellaneous Notes* Telephone Encounter - Godfrey Clayton [...] understanding. Godfrey Clayton RN documented in this encounterKettering Health [facility]05-03-2022 [facility]Reg[facility]-03-20[facility] History of Present illness Narrative* Godfrey Clayton RN - 07/08/2021 3:51 PM EDT Informed Consent Presentation IRB# [id number] Title: [facility] 1820, Cyto-KIK; TRIAL (CYTO reductive surgery in Kidney cancer plus Immunotherapy (nivolumab) and targeted Kinase inhibition (cabozantinib) Consent expiration date 01/10/2022 Spoke with patient at the request of Dr. Kenneth Chester MD [place]-- . Treatment plan, including all testing, potential [...] 1500 Godfrey Clayton RN documented in this encounterKettering [facility]05-02-2022 Miscellaneous Notes* Telephone Encounter - Godfrey Clayton [...] understanding. Godfrey Clayton RN documented in this encounterKettering Health [facility]04-27-2022 [facility]Reg[facility]04-27-2022 History of Present illness Narrative* Kenneth Chester MD - 07/02/2021 12:00 PM EDT Images from the original note were not included. 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 Will await biopsy prior to discussing next steps. Patient has our office contact information and knows how to reach us at any time with questions/concerns or if clinical condition changes. Kenneth Chester MD MA Associate Staff [facility] July 02, 2021 CC: Adriana Hodge MD documented in this encounterKettering Health [facility]04-27-2022 Nurse Note* Ariadne Wood RN - 07/02/2021 11:52 AM EDT Additional intake questions: Has the patient had fever, nausea, vomiting, diarrhea, constipation, fatigue for > 1 week? No Does the patient have a decreased appetite? No Does patient want to see a Alumni Coordinator? No (yes to any of above refer patient to schedulers for dietitian appointment) ) Does patient have any new or increased numbness or tingling of extremities? No Is patient interested in fertility information? No Does patient need any prescription refills? No Does patient have an advanced directive in place? No, Patient referred to [facility] documented in this encounterKettering [facility]04-26-2022 NoteReg[facility]04-25-2022 NoteReg[facility]04-25-2022 History of Present illness Narrative* RT Dimas(Damion) [...] 725 PATIENT DISCHARGED TO: Ambulatory patient, left CT department area. A Diagnostic radioactive procedure has taken place, with no further precautions necessary other than routine body substance precautions. More information regarding radiation safety can be found usingthis link: [email or web address] SIGNATURE: RT Dimas(R) PATIENT NAME: Yefri Yanez DATE: June 30, 2021 TIME: 7:45 AM PAGER/CONTACT #: [phone] documented in this encounterKettering [facility]04-22-2022 NoteReg[facility]04-22-2022 History of Present illness Narrative* TOÑO DuganR) [...] 2021 TIME: 1:57 PM documented in this encounterKettering [facility]04-19-2022 Miscellaneous Notes* Telephone Encounter - John Gtz [...] this procedure: low risk. Reference from F Buffing Wheel Operator: [email or web address] STAFF SIGNATURE: John Gtz MD DATE: June 24, 2021 TIME: 8:32 AM * Telephone Encounter - Yandy Muñoz RN - 06/23/2021 4:44 PM EDT BX. COORDINATOR INFORMATION LAB RESULTS: No results found for: INR No results found for: APTT Platelet Count (k/uL) Date Value 06/20/2021 268 11/06/2019 288 Current Outpatient Medications Medication Sig potassium chloride (KLOR-CON) 20 mEq packet Potassium Chloride* ([id number]) 20 MEQ PACKET Active 20 MEQ PO [...] 4:26 PM EDT RADIOLOGY CALL CENTER INTAKE CREATIVE SERVICES SPECIALIST: IRMA EVANS EXT: [id number] DATE: 06/23/2021 TIME: 4:27PM TRACKING #. [id number] REQUESTING PERSON: LILIAM PHONE/PAGER: [phone] REQUESTING STAFF: Adriana Hodge MD PHONE/PAGER: [phone] SPECIFICS OF THE REQUEST: (Please be as [...] for pathology (For example: send for ER, [place], HER2/silas or possible lymphoma send in RPMI [...] EVALUATE APPROPRIATENESS/FEASIBILITY OF THE REQUEST) IMAGING: OUTSIDE [facility] Films: Where is study now: UPLOADED IN PATIENTS CHART (If the imaging was obtained outside the [facility] system, then it needs to be submitted for review prior to approval.) Note to all persons requesting biopsies: All biopsy requests will be scheduled as quickly as possible, based on the clinical urgency, availability of appointment times, the need to hold anti-thrombolytic therapy (aspirin, blood thinners) and the patient s schedule, including the need for an available inventory associate and driver. If a percutaneous biopsy or drainage is not felt to be safe or an alternative method for establishing a diagnosis is possible, this will be discussed directly with the requesting physician. 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 [employer] Residence:[place] Review of Systems: No CP, No SOB, no CVA, no TIA, No IN No claudication Skin: Rash: denies Lump or mass: denies HEENT: Problems with hearing: denies Double vision or blurred vision: denies Difficulty swallowing: denies Neck: Mass or LN enlargement: denies Pain: denies Chest: SOB: denies Cough: denies Coughing blood: denies Hx pneumonia: denies CVS: Dyspnea on exertion: denies Chest pain: denies Palpitations: denies Hx heart disease, valvular disease: denies Hx IN: denies GI: Nausea or vomiting: denies Abd [...] which included preparing to see the patient, [id number] patient care, completing clinical documentation and counseling [...] 23, 2021 11:36 AM documented in this encounterKettering [facility]04-18-2022 Miscellaneous Notes* Telephone Encounter - Dawit Urbina MD - 06/23/2021 8:48 AM EDT Spoke with Patient ID by Relayed to patient CBC and CMP without concern. Patient aware to follow up with Dr. Hodge at 11:00 AM today. Dawit Urbina MD documented in this encounterKettering [facility]04-15-[address]-[address] History of Past illness Narrative* Problem Noted Date Resolved Date Essential hypertension, benign 06/30/2004 0 03/12/2008 ROUTINE MEDICAL EXAM 06/30/2004 11/26/2014 CHEST PAIN NOS 06/30/2004 11/26/2014 documented as of this encounter (statuses as of 06/23/2021) [address]25-[address] History of Past illness Narrative* Problem Noted Date Resolved Date Essential hypertension, benign 06/30/2004 0 03/12/2008 ROUTINE MEDICAL EXAM 06/30/2004 11/26/2014 CHEST PAIN NOS 06/30/2004 11/26/2014 documented as of this encounter (statuses as of 06/23/2021) [address]25-2005 History of Past illness Narrative* Problem Noted Date Resolved Date Essential hypertension, benign 06/30/2004 0 03/12/2008 ROUTINE MEDICAL EXAM 06/30/2004 11/26/2014 CHEST PAIN NOS 06/30/2004 11/26/2014 documented as of this encounter (statuses as of 06/24/2021) [address]25[address]2005 History of Past illness Narrative* Problem Noted Date Resolved Date Essential hypertension, benign 06/30/2004 0 03/12/2008 ROUTINE MEDICAL EXAM 06/30/2004 11/26/2014 CHEST PAIN NOS 06/30/2004 11/26/2014 documented as of this encounter (statuses as of 06/26/2021) [address]25-[address] History of Past illness Narrative* Problem Noted Date Resolved Date Essential hypertension, benign 06/30/2004 0 03/12/2008 ROUTINE MEDICAL EXAM 06/30/2004 11/26/2014 CHEST PAIN NOS 06/30/2004 11/26/2014 documented as of this encounter (statuses as of 06/28/2021) [address]25-2005 History of Past illness Narrative* Problem Noted Date Resolved Date Essential hypertension, benign 06/30/2004 0 03/12/2008 ROUTINE MEDICAL EXAM 06/30/2004 11/26/2014 CHEST PAIN NOS 06/30/2004 11/26/2014 documented as of this encounter (statuses as of 06/28/2021) [place] [id number] History of Past illness Narrative* Problem Noted Date Resolved Date Essential hypertension, benign 06/30/2004 0 03/12/2008 ROUTINE MEDICAL EXAM 06/30/2004 11/26/2014 CHEST PAIN NOS 06/30/2004 11/26/2014 documented as of this encounter (statuses as of 07/01/2021) [address] History of Past illness Narrative* Problem Noted Date Resolved Date Essential hypertension, benign 06/30/2004 0 03/12/2008 ROUTINE MEDICAL EXAM 06/30/2004 11/26/2014 CHEST PAIN NOS 06/30/2004 11/26/2014 documented as of this encounter (statuses as of 07/01/2021) [address] History of Past illness Narrative* Problem Noted Date Resolved Date Essential hypertension, benign 06/30/2004 0 03/12/2008 ROUTINE MEDICAL EXAM 06/30/2004 11/26/2014 CHEST PAIN NOS 06/30/2004 11/26/2014 documented as of this encounter (statuses as of 07/04/2021) [address] History of Past illness Narrative* Problem Noted Date Resolved Date Essential hypertension, benign 06/30/2004 0 03/12/2008 ROUTINE MEDICAL EXAM 06/30/2004 11/26/2014 CHEST PAIN NOS 06/30/2004 11/26/2014 documented as of this encounter (statuses as of 07/07/2021) [address] History of Past illness Narrative* Problem Noted Date Resolved Date Essential hypertension, benign 06/30/2004 0 03/12/2008 ROUTINE MEDICAL EXAM 06/30/2004 11/26/2014 CHEST PAIN NOS 06/30/2004 11/26/2014 documented as of this encounter (statuses as of 07/08/2021) [address] History of Past illness Narrative* Problem Noted Date Resolved Date Essential hypertension, benign 06/30/2004 0 03/12/2008 ROUTINE MEDICAL EXAM 06/30/2004 11/26/2014 CHEST PAIN NOS 06/30/2004 11/26/2014 documented as of this encounter (statuses as of 07/11/2021) [address] History of Past illness Narrative* Problem Noted Date Resolved Date Essential hypertension, benign 06/30/2004 0 03/12/2008 ROUTINE MEDICAL EXAM 06/30/2004 11/26/2014 CHEST PAIN NOS 06/30/2004 11/26/2014 documented as of this encounter (statuses as of 07/11/2021) [address] History of Past illness Narrative* Problem Noted Date Resolved Date Essential hypertension, benign 06/30/2004 0 03/12/2008 ROUTINE MEDICAL EXAM 06/30/2004 11/26/2014 CHEST PAIN NOS 06/30/2004 11/26/2014 documented as of this encounter (statuses as of 07/11/2021) [address] History of Past illness Narrative* Problem Noted Date Resolved Date Essential hypertension, benign 06/30/2004 0 03/12/2008 ROUTINE MEDICAL EXAM 06/30/2004 11/26/2014 CHEST PAIN NOS 06/30/2004 11/26/2014 documented as of this encounter (statuses as of 07/14/2021) [address] History of Past illness Narrative* Problem Noted Date Resolved Date Essential hypertension, benign 06/30/2004 0 03/12/2008 ROUTINE MEDICAL EXAM 06/30/2004 11/26/2014 CHEST PAIN NOS 06/30/2004 11/26/2014 documented as of this encounter (statuses as of 07/15/2021) [address] History of Past illness Narrative* Problem Noted Date Resolved Date Essential hypertension, benign 06/30/2004 0 03/12/2008 ROUTINE MEDICAL EXAM 06/30/2004 11/26/2014 CHEST PAIN NOS 06/30/2004 11/26/2014 documented as of this encounter (statuses as of 07/15/2021) [address] History of Past illness Narrative* Problem Noted Date Resolved Date Essential hypertension, benign 06/30/2004 0 03/12/2008 ROUTINE MEDICAL EXAM 06/30/2004 11/26/2014 CHEST PAIN NOS 06/30/2004 11/26/2014 documented as of this encounter (statuses as of 07/21/2021) [address] History of Past illness Narrative* Problem Noted Date Resolved Date Essential hypertension, benign 06/30/2004 0 03/12/2008 ROUTINE MEDICAL EXAM 06/30/2004 11/26/2014 CHEST PAIN NOS 06/30/2004 11/26/2014 documented as of this encounter (statuses as of 07/21/2021) [address] History of Past illness Narrative* Problem Noted Date Resolved Date Essential hypertension, benign 06/30/2004 0 03/12/2008 ROUTINE MEDICAL EXAM 06/30/2004 11/26/2014 CHEST PAIN NOS 06/30/2004 11/26/2014 documented as of this encounter (statuses as of 07/21/2021) [address] History of Past illness Narrative* Problem Noted Date Resolved Date Essential hypertension, benign 06/30/2004 0 03/12/2008 ROUTINE MEDICAL EXAM 06/30/2004 11/26/2014 CHEST PAIN NOS 06/30/2004 11/26/2014 documented as of this encounter (statuses as of 07/22/2021) [address] History of Past illness Narrative* Problem Noted Date Resolved Date Essential hypertension, benign 06/30/2004 0 03/12/2008 ROUTINE MEDICAL EXAM 06/30/2004 11/26/2014 CHEST PAIN NOS 06/30/2004 11/26/2014 documented as of this encounter (statuses as of 07/22/2021) [address] History of Past illness Narrative* Problem Noted Date Resolved Date Essential hypertension, benign 06/30/2004 0 03/12/2008 ROUTINE MEDICAL EXAM 06/30/2004 11/26/2014 CHEST PAIN NOS 06/30/2004 11/26/2014 documented as of this encounter (statuses as of 07/23/2021) [address] History of Past illness Narrative* Problem Noted Date Resolved Date Essential hypertension, benign 06/30/2004 0 03/12/2008 ROUTINE MEDICAL EXAM 06/30/2004 11/26/2014 CHEST PAIN NOS 06/30/2004 11/26/2014 documented as of this encounter (statuses as of 07/24/2021) [address] History of Past illness Narrative* Problem Noted Date Resolved Date Essential hypertension, benign 06/30/2004 0 03/12/2008 ROUTINE MEDICAL EXAM 06/30/2004 11/26/2014 CHEST PAIN NOS 06/30/2004 11/26/2014 documented as of this encounter (statuses as of 07/24/2021) [address] History of Past illness Narrative* Problem Noted Date Resolved Date Essential hypertension, benign 06/30/2004 0 03/12/2008 ROUTINE MEDICAL EXAM 06/30/2004 11/26/2014 CHEST PAIN NOS 06/30/2004 11/26/2014 documented as of this encounter (statuses as of 07/25/2021) [address] History of Past illness Narrative* Problem Noted Date Resolved Date Essential hypertension, benign 06/30/2004 0 03/12/2008 ROUTINE MEDICAL EXAM 06/30/2004 11/26/2014 CHEST PAIN NOS 06/30/2004 11/26/2014 documented as of this encounter (statuses as of 07/25/2021) [address] History of Past illness Narrative* Problem Noted Date Resolved Date Essential hypertension, benign 06/30/2004 0 03/12/2008 ROUTINE MEDICAL EXAM 06/30/2004 11/26/2014 CHEST PAIN NOS 06/30/2004 11/26/2014 documented as of this encounter (statuses as of 07/28/2021) [address] History of Past illness Narrative* Problem Noted Date Resolved Date Essential hypertension, benign 06/30/2004 0 03/12/2008 ROUTINE MEDICAL EXAM 06/30/2004 11/26/2014 CHEST PAIN NOS 06/30/2004 11/26/2014 documented as of this encounter (statuses as of 07/29/2021) [address] History of Past illness Narrative* Problem Noted Date Resolved Date Essential hypertension, benign 06/30/2004 0 03/12/2008 ROUTINE MEDICAL EXAM 06/30/2004 11/26/2014 CHEST PAIN NOS 06/30/2004 11/26/2014 documented as of this encounter (statuses as of 07/29/2021) [address] History of Past illness Narrative* Problem Noted Date Resolved Date Essential hypertension, benign 06/30/2004 0 03/12/2008 ROUTINE MEDICAL EXAM 06/30/2004 11/26/2014 CHEST PAIN NOS 06/30/2004 11/26/2014 documented as of this encounter (statuses as of 07/30/2021) [address] History of Past illness Narrative* Problem Noted Date Resolved Date Essential hypertension, benign 06/30/2004 0 03/12/2008 ROUTINE MEDICAL EXAM 06/30/2004 11/26/2014 CHEST PAIN NOS 06/30/2004 11/26/2014 documented as of this encounter (statuses as of 07/31/2021) [place] [id number] History of Past illness Narrative* Problem Noted Date Resolved Date Essential hypertension, benign 06/30/2004 0 03/12/2008 ROUTINE MEDICAL EXAM 06/30/2004 11/26/2014 CHEST PAIN NOS 06/30/2004 11/26/2014 documented as of this encounter (statuses as of 08/03/2021) [address] History of Past illness Narrative* Problem Noted Date Resolved Date Essential hypertension, benign 06/30/2004 0 03/12/2008 ROUTINE MEDICAL EXAM 06/30/2004 11/26/2014 CHEST PAIN NOS 06/30/2004 11/26/2014 documented as of this encounter (statuses as of 08/06/2021) [address] History of Past illness Narrative* Problem Noted Date Resolved Date Essential hypertension, benign 06/30/2004 0 03/12/2008 ROUTINE MEDICAL EXAM 06/30/2004 11/26/2014 CHEST PAIN NOS 06/30/2004 11/26/2014 documented as of this encounter (statuses as of 08/06/2021) [address] History of Past illness Narrative* Problem Noted Date Resolved Date Essential hypertension, benign 06/30/2004 0 03/12/2008 ROUTINE MEDICAL EXAM 06/30/2004 11/26/2014 CHEST PAIN NOS 06/30/2004 11/26/2014 documented as of this encounter (statuses as of 08/07/2021) [address] History of Past illness Narrative* Problem Noted Date Resolved Date Essential hypertension, benign 06/30/2004 0 03/12/2008 ROUTINE MEDICAL EXAM 06/30/2004 11/26/2014 CHEST PAIN NOS 06/30/2004 11/26/2014 documented as of this encounter (statuses as of 08/08/2021) [address] History of Past illness Narrative* Problem Noted Date Resolved Date Essential hypertension, benign 06/30/2004 0 03/12/2008 ROUTINE MEDICAL EXAM 06/30/2004 11/26/2014 CHEST PAIN NOS 06/30/2004 11/26/2014 documented as of this encounter (statuses as of 08/08/2021) [address] History of Past illness Narrative* Problem Noted Date Resolved Date Essential hypertension, benign 06/30/2004 0 03/12/2008 ROUTINE MEDICAL EXAM 06/30/2004 11/26/2014 CHEST PAIN NOS 06/30/2004 11/26/2014 documented as of this encounter (statuses as of 08/08/2021) [address] History of Past illness Narrative* Problem Noted Date Resolved Date Essential hypertension, benign 06/30/2004 0 03/12/2008 ROUTINE MEDICAL EXAM 06/30/2004 11/26/2014 CHEST PAIN NOS 06/30/2004 11/26/2014 documented as of this encounter (statuses as of 08/08/2021) [address] History of Past illness Narrative* Problem Noted Date Resolved Date Essential hypertension, benign 06/30/2004 0 03/12/2008 ROUTINE MEDICAL EXAM 06/30/2004 11/26/2014 CHEST PAIN NOS 06/30/2004 11/26/2014 documented as of this encounter (statuses as of 08/11/2021) [address] History of Past illness Narrative* Problem Noted Date Resolved Date Essential hypertension, benign 06/30/2004 0 03/12/2008 ROUTINE MEDICAL EXAM 06/30/2004 11/26/2014 CHEST PAIN NOS 06/30/2004 11/26/2014 documented as of this encounter (statuses as of 08/12/2021) [address] History of Past illness Narrative* Problem Noted Date Resolved Date Essential hypertension, benign 06/30/2004 0 03/12/2008 ROUTINE MEDICAL EXAM 06/30/2004 11/26/2014 CHEST PAIN NOS 06/30/2004 11/26/2014 documented as of this encounter (statuses as of 08/12/2021) [address] History of Past illness Narrative* Problem Noted Date Resolved Date Essential hypertension, benign 06/30/2004 0 03/12/2008 ROUTINE MEDICAL EXAM 06/30/2004 11/26/2014 CHEST PAIN NOS 06/30/2004 11/26/2014 documented as of this encounter (statuses as of 08/13/2021) [address] History of Past illness Narrative* Problem Noted Date Resolved Date Essential hypertension, benign 06/30/2004 0 03/12/2008 ROUTINE MEDICAL EXAM 06/30/2004 11/26/2014 CHEST PAIN NOS 06/30/2004 11/26/2014 documented as of this encounter (statuses as of 08/18/2021) [address] History of Past illness Narrative* Problem Noted Date Resolved Date Essential hypertension, benign 06/30/2004 0 03/12/2008 ROUTINE MEDICAL EXAM 06/30/2004 11/26/2014 CHEST PAIN NOS 06/30/2004 11/26/2014 documented as of this encounter (statuses as of 08/18/2021) [address] History of Past illness Narrative* Problem Noted Date Resolved Date Essential hypertension, benign 06/30/2004 0 03/12/2008 ROUTINE MEDICAL EXAM 06/30/2004 11/26/2014 CHEST PAIN NOS 06/30/2004 11/26/2014 documented as of this encounter (statuses as of 08/18/2021) [address] History of Past illness Narrative* Problem Noted Date Resolved Date Essential hypertension, benign 06/30/2004 0 03/12/2008 ROUTINE MEDICAL EXAM 06/30/2004 11/26/2014 CHEST PAIN NOS 06/30/2004 11/26/2014 documented as of this encounter (statuses as of 08/19/2021) [address] History of Past illness Narrative* Problem Noted Date Resolved Date Essential hypertension, benign 06/30/2004 0 03/12/2008 ROUTINE MEDICAL EXAM 06/30/2004 11/26/2014 CHEST PAIN NOS 06/30/2004 11/26/2014 documented as of this encounter (statuses as of 08/19/2021) [address] History of Past illness Narrative* Problem Noted Date Resolved Date Essential hypertension, benign 06/30/2004 0 03/12/2008 ROUTINE MEDICAL EXAM 06/30/2004 11/26/2014 CHEST PAIN NOS 06/30/2004 11/26/2014 documented as of this encounter (statuses as of 08/20/2021) [address] History of Past illness Narrative* Problem Noted Date Resolved Date Essential hypertension, benign 06/30/2004 0 03/12/2008 ROUTINE MEDICAL EXAM 06/30/2004 11/26/2014 CHEST PAIN NOS 06/30/2004 11/26/2014 documented as of this encounter (statuses as of 08/21/2021) [address] History of Past illness Narrative* Problem Noted Date Resolved Date Essential hypertension, benign 06/30/2004 0 03/12/2008 ROUTINE MEDICAL EXAM 06/30/2004 11/26/2014 CHEST PAIN NOS 06/30/2004 11/26/2014 documented as of this encounter (statuses as of 08/27/2021) [address] History of Past illness Narrative* Problem Noted Date Resolved Date Essential hypertension, benign 06/30/2004 0 03/12/2008 ROUTINE MEDICAL EXAM 06/30/2004 11/26/2014 CHEST PAIN NOS 06/30/2004 11/26/2014 documented as of this encounter (statuses as of 08/28/2021) [address] History of Past illness Narrative* Problem Noted Date Resolved Date Essential hypertension, benign 06/30/2004 0 03/12/2008 ROUTINE MEDICAL EXAM 06/30/2004 11/26/2014 CHEST PAIN NOS 06/30/2004 11/26/2014 documented as of this encounter (statuses as of 09/01/2021) [address] History of Past illness Narrative* Problem Noted Date Resolved Date Essential hypertension, benign 06/30/2004 0 03/12/2008 ROUTINE MEDICAL EXAM 06/30/2004 11/26/2014 CHEST PAIN NOS 06/30/2004 11/26/2014 documented as of this encounter (statuses as of 09/02/2021) [address] History of Past illness Narrative* Problem Noted Date Resolved Date Essential hypertension, benign 06/30/2004 0 03/12/2008 ROUTINE MEDICAL EXAM 06/30/2004 11/26/2014 CHEST PAIN NOS 06/30/2004 11/26/2014 documented as of this encounter (statuses as of 09/03/2021) [address] History of Past illness Narrative* Problem Noted Date Resolved Date Essential hypertension, benign 06/30/2004 0 03/12/2008 ROUTINE MEDICAL EXAM 06/30/2004 11/26/2014 CHEST PAIN NOS 06/30/2004 11/26/2014 documented as of this encounter (statuses as of 09/03/2021) [address] History of Past illness Narrative* Problem Noted Date Resolved Date Essential hypertension, benign 06/30/2004 0 03/12/2008 ROUTINE MEDICAL EXAM 06/30/2004 11/26/2014 CHEST PAIN NOS 06/30/2004 11/26/2014 documented as of this encounter (statuses as of 09/03/2021) [address] History of Past illness Narrative* Problem Noted Date Resolved Date Essential hypertension, benign 06/30/2004 0 03/12/2008 ROUTINE MEDICAL EXAM 06/30/2004 11/26/2014 CHEST PAIN NOS 06/30/2004 11/26/2014 documented as of this encounter (statuses as of 09/11/2021) [address] History of Past illness Narrative* Problem Noted Date Resolved Date Essential hypertension, benign 06/30/2004 0 03/12/2008 ROUTINE MEDICAL EXAM 06/30/2004 11/26/2014 CHEST PAIN NOS 06/30/2004 11/26/2014 documented as of this encounter (statuses as of 09/11/2021) [address] History of Past illness Narrative* Problem Noted Date Resolved Date Essential hypertension, benign 06/30/2004 0 03/12/2008 ROUTINE MEDICAL EXAM 06/30/2004 11/26/2014 CHEST PAIN NOS 06/30/2004 11/26/2014 documented as of this encounter (statuses as of 09/16/2021) [address] History of Past illness Narrative* Problem Noted Date Resolved Date Essential hypertension, benign 06/30/2004 0 03/12/2008 ROUTINE MEDICAL EXAM 06/30/2004 11/26/2014 CHEST PAIN NOS 06/30/2004 11/26/2014 documented as of this encounter (statuses as of 09/17/2021) [address]25-2005 History of Past illness Narrative* Problem Noted Date Resolved Date Essential hypertension, benign 06/30/2004 0 03/12/2008 ROUTINE MEDICAL EXAM 06/30/2004 11/26/2014 CHEST PAIN NOS 06/30/2004 11/26/2014 documented as of this encounter (statuses as of 09/19/2021) [address] History of Past illness Narrative* Problem Noted Date Resolved Date Essential hypertension, benign 06/30/2004 0 03/12/2008 ROUTINE MEDICAL EXAM 06/30/2004 11/26/2014 CHEST PAIN NOS 06/30/2004 11/26/2014 documented as of this encounter (statuses as of 09/22/2021) [address] History of Past illness Narrative* Problem Noted Date Resolved Date Essential hypertension, benign 06/30/2004 0 03/12/2008 ROUTINE MEDICAL EXAM 06/30/2004 11/26/2014 CHEST PAIN NOS 06/30/2004 11/26/2014 documented as of this encounter (statuses as of 09/29/2021) [address] History of Past illness Narrative* Problem Noted Date Resolved Date Essential hypertension, benign 06/30/2004 0 03/12/2008 ROUTINE MEDICAL EXAM 06/30/2004 11/26/2014 CHEST PAIN NOS 06/30/2004 11/26/2014 documented as of this encounter (statuses as of 09/29/2021) [address] History of Past illness Narrative* Problem Noted Date Resolved Date Essential hypertension, benign 06/30/2004 0 03/12/2008 ROUTINE MEDICAL EXAM 06/30/2004 11/26/2014 CHEST PAIN NOS 06/30/2004 11/26/2014 documented as of this encounter (statuses as of 09/29/2021) [address] History of Past illness Narrative* Problem Noted Date Resolved Date Essential hypertension, benign 06/30/2004 0 03/12/2008 ROUTINE MEDICAL EXAM 06/30/2004 11/26/2014 CHEST PAIN NOS 06/30/2004 11/26/2014 documented as of this encounter (statuses as of 10/09/2021) [address] History of Past illness Narrative* Problem Noted Date Resolved Date Essential hypertension, benign 06/30/2004 0 03/12/2008 ROUTINE MEDICAL EXAM 06/30/2004 11/26/2014 CHEST PAIN NOS 06/30/2004 11/26/2014 documented as of this encounter (statuses as of 10/13/2021) [address] History of Past illness Narrative* Problem Noted Date Resolved Date Essential hypertension, benign 06/30/2004 0 03/12/2008 ROUTINE MEDICAL EXAM 06/30/2004 11/26/2014 CHEST PAIN NOS 06/30/2004 11/26/2014 documented as of this encounter (statuses as of 10/14/2021) [address] History of Past illness Narrative* Problem Noted Date Resolved Date Essential hypertension, benign 06/30/2004 0 03/12/2008 ROUTINE MEDICAL EXAM 06/30/2004 11/26/2014 CHEST PAIN NOS 06/30/2004 11/26/2014 documented as of this encounter (statuses as of 10/21/2021) [address] History of Past illness Narrative* Problem Noted Date Resolved Date Essential hypertension, benign 06/30/2004 0 03/12/2008 ROUTINE MEDICAL EXAM 06/30/2004 11/26/2014 CHEST PAIN NOS 06/30/2004 11/26/2014 documented as of this encounter (statuses as of 10/21/2021) [address] History of Past illness Narrative* Problem Noted Date Resolved Date Essential hypertension, benign 06/30/2004 0 03/12/2008 ROUTINE MEDICAL EXAM 06/30/2004 11/26/2014 CHEST PAIN NOS 06/30/2004 11/26/2014 documented as of this encounter (statuses as of 10/27/2021) [address] History of Past illness Narrative* Problem Noted Date Resolved Date Essential hypertension, benign 06/30/2004 0 03/12/2008 ROUTINE MEDICAL EXAM 06/30/2004 11/26/2014 CHEST PAIN NOS 06/30/2004 11/26/2014 documented as of this encounter (statuses as of 10/27/2021) [address] History of Past illness Narrative* Problem Noted Date Resolved Date Essential hypertension, benign 06/30/2004 0 03/12/2008 ROUTINE MEDICAL EXAM 06/30/2004 11/26/2014 CHEST PAIN NOS 06/30/2004 11/26/2014 documented as of this encounter (statuses as of 11/03/2021) [address]-2005 History of Past illness Narrative* Problem Noted Date Resolved Date Essential hypertension, benign 06/30/2004 0 03/12/2008 ROUTINE MEDICAL EXAM 06/30/2004 11/26/2014 CHEST PAIN NOS 06/30/2004 11/26/2014 documented as of this encounter (statuses as of 11/04/2021) [address] History of Past illness Narrative* Problem Noted Date Resolved Date Essential hypertension, benign 06/30/2004 0 03/12/2008 ROUTINE MEDICAL EXAM 06/30/2004 11/26/2014 CHEST PAIN NOS 06/30/2004 11/26/2014 documented as of this encounter (statuses as of 11/06/2021) [address] History of Past illness Narrative* Problem Noted Date Resolved Date Essential hypertension, benign 06/30/2004 0 03/12/2008 ROUTINE MEDICAL EXAM 06/30/2004 11/26/2014 CHEST PAIN NOS 06/30/2004 11/26/2014 documented as of this encounter (statuses as of 11/17/2021) [address] History of Past illness Narrative* Problem Noted Date Resolved Date Essential hypertension, benign 06/30/2004 0 03/12/2008 ROUTINE MEDICAL EXAM 06/30/2004 11/26/2014 CHEST PAIN NOS 06/30/2004 11/26/2014 documented as of this encounter (statuses as of 11/19/2021) [address] History of Past illness Narrative* Problem Noted Date Resolved Date Essential hypertension, benign 06/30/2004 0 03/12/2008 ROUTINE MEDICAL EXAM 06/30/2004 11/26/2014 CHEST PAIN NOS 06/30/2004 11/26/2014 documented as of this encounter (statuses as of 11/21/2021) [address] History of Past illness Narrative* Problem Noted Date Resolved Date Essential hypertension, benign 06/30/2004 0 03/12/2008 ROUTINE MEDICAL EXAM 06/30/2004 11/26/2014 CHEST PAIN NOS 06/30/2004 11/26/2014 documented as of this encounter (statuses as of 11/21/2021) [address] History of Past illness Narrative* Problem Noted Date Resolved Date Essential hypertension, benign 06/30/2004 0 03/12/2008 ROUTINE MEDICAL EXAM 06/30/2004 11/26/2014 CHEST PAIN NOS 06/30/2004 11/26/2014 documented as of this encounter (statuses as of 11/25/2021) [address] History of Past illness Narrative* Problem Noted Date Resolved Date Essential hypertension, benign 06/30/2004 0 03/12/2008 ROUTINE MEDICAL EXAM 06/30/2004 11/26/2014 CHEST PAIN NOS 06/30/2004 11/26/2014 documented as of this encounter (statuses as of 11/29/2021) [address] History of Past illness Narrative* Problem Noted Date Resolved Date Essential hypertension, benign 06/30/2004 0 03/12/2008 ROUTINE MEDICAL EXAM 06/30/2004 11/26/2014 CHEST PAIN NOS 06/30/2004 11/26/2014 documented as of this encounter (statuses as of 12/09/2021) [address] History of Past illness Narrative* Problem Noted Date Resolved Date Essential hypertension, benign 06/30/2004 0 03/12/2008 ROUTINE MEDICAL EXAM 06/30/2004 11/26/2014 CHEST PAIN NOS 06/30/2004 11/26/2014 documented as of this encounter (statuses as of 12/17/2021) [address] History of Past illness Narrative* Problem Noted Date Resolved Date Essential hypertension, benign 06/30/2004 0 03/12/2008 ROUTINE MEDICAL EXAM 06/30/2004 11/26/2014 CHEST PAIN NOS 06/30/2004 11/26/2014 documented as of this encounter (statuses as of 12/27/2021) [address] History of Past illness Narrative* Problem Noted Date Resolved Date Essential hypertension, benign 06/30/2004 0 03/12/2008 ROUTINE MEDICAL EXAM 06/30/2004 11/26/2014 CHEST PAIN NOS 06/30/2004 11/26/2014 documented as of this encounter (statuses as of 12/28/2021) [address] History of Past illness Narrative* Problem Noted Date Resolved Date Essential hypertension, benign 06/30/2004 0 03/12/2008 ROUTINE MEDICAL EXAM 06/30/2004 11/26/2014 CHEST PAIN NOS 06/30/2004 11/26/2014 documented as of this encounter (statuses as of 12/30/2021) [address]25-2005 History of Past illness Narrative* Problem Noted Date Resolved Date Essential hypertension, benign 06/30/2004 0 03/12/2008 ROUTINE MEDICAL EXAM 06/30/2004 11/26/2014 CHEST PAIN NOS 06/30/2004 11/26/2014 documented as of this encounter (statuses as of 12/30/2021) [address]-2005 History of Past illness Narrative* Problem Noted Date Resolved Date Essential hypertension, benign 06/30/2004 0 03/12/2008 ROUTINE MEDICAL EXAM 06/30/2004 11/26/2014 CHEST PAIN NOS 06/30/2004 11/26/2014 documented as of this encounter (statuses as of 01/07/2022) [address]-2005 History of Past illness Narrative* Problem Noted Date Resolved Date Essential hypertension, benign 06/30/2004 0 03/12/2008 ROUTINE MEDICAL EXAM 06/30/2004 11/26/2014 CHEST PAIN NOS 06/30/2004 11/26/2014 documented as of this encounter (statuses as of 01/20/2022) [address] History of Past illness Narrative* Problem Noted Date Resolved Date Essential hypertension, benign 06/30/2004 0 03/12/2008 ROUTINE MEDICAL EXAM 06/30/2004 11/26/2014 CHEST PAIN NOS 06/30/2004 11/26/2014 documented as of this encounter (statuses as of 01/22/2022) [address] History of Past illness Narrative* Problem Noted Date Resolved Date Essential hypertension, benign 06/30/2004 0 03/12/2008 ROUTINE MEDICAL EXAM 06/30/2004 11/26/2014 CHEST PAIN NOS 06/30/2004 11/26/2014 documented as of this encounter (statuses as of 01/26/2022) [address] History of Past illness Narrative* Problem Noted Date Resolved Date Essential hypertension, benign 06/30/2004 0 03/12/2008 ROUTINE MEDICAL EXAM 06/30/2004 11/26/2014 CHEST PAIN NOS 06/30/2004 11/26/2014 documented as of this encounter (statuses as of 02/12/2022) [address] History of Past illness Narrative* Problem Noted Date Resolved Date Essential hypertension, benign 06/30/2004 0 03/12/2008 ROUTINE MEDICAL EXAM 06/30/2004 11/26/2014 CHEST PAIN NOS 06/30/2004 11/26/2014 documented as of this encounter (statuses as of 02/13/2022) [address] History of Past illness Narrative* Problem Noted Date Resolved Date Essential hypertension, benign 06/30/2004 0 03/12/2008 ROUTINE MEDICAL EXAM 06/30/2004 11/26/2014 CHEST PAIN NOS 06/30/2004 11/26/2014 documented as of this encounter (statuses as of 02/16/2022) [address] History of Past illness Narrative* Problem Noted Date Resolved Date Essential hypertension, benign 06/30/2004 0 03/12/2008 ROUTINE MEDICAL EXAM 06/30/2004 11/26/2014 CHEST PAIN NOS 06/30/2004 11/26/2014 documented as of this encounter (statuses as of 02/17/2022) [address] History of Past illness Narrative* Problem Noted Date Resolved Date Essential hypertension, benign 06/30/2004 0 03/12/2008 ROUTINE MEDICAL EXAM 06/30/2004 11/26/2014 CHEST PAIN NOS 06/30/2004 11/26/2014 documented as of this encounter (statuses as of 02/17/2022) [address] History of Past illness Narrative* Problem Noted Date Resolved Date Essential hypertension, benign 06/30/2004 0 03/12/2008 ROUTINE MEDICAL EXAM 06/30/2004 11/26/2014 CHEST PAIN NOS 06/30/2004 11/26/2014 documented as of this encounter (statuses as of 03/13/2022) [address] History of Past illness Narrative* Problem Noted Date Resolved Date Essential hypertension, benign 06/30/2004 0 03/12/2008 ROUTINE MEDICAL EXAM 06/30/2004 11/26/2014 CHEST PAIN NOS 06/30/2004 11/26/2014 documented as of this encounter (statuses as of 03/13/2022) [address] History of Past illness Narrative* Problem Noted Date Resolved Date Essential hypertension, benign 06/30/2004 0 03/12/2008 ROUTINE MEDICAL EXAM 06/30/2004 11/26/2014 CHEST PAIN NOS 06/30/2004 11/26/2014 documented as of this encounter (statuses as of 03/17/2022) [address] History of Past illness Narrative* Problem Noted Date Resolved Date Essential hypertension, benign 06/30/2004 0 03/12/2008 ROUTINE MEDICAL EXAM 06/30/2004 11/26/2014 CHEST PAIN NOS 06/30/2004 11/26/2014 documented as of this encounter (statuses as of 03/17/2022) [address] History of Past illness Narrative* Problem Noted Date Resolved Date Essential hypertension, benign 06/30/2004 0 03/12/2008 ROUTINE MEDICAL EXAM 06/30/2004 11/26/2014 CHEST PAIN NOS 06/30/2004 11/26/2014 documented as of this encounter (statuses as of 03/23/2022) [address] History of Past illness Narrative* Problem Noted Date Resolved Date Essential hypertension, benign 06/30/2004 0 03/12/2008 ROUTINE MEDICAL EXAM 06/30/2004 11/26/2014 CHEST PAIN NOS 06/30/2004 11/26/2014 documented as of this encounter (statuses as of 03/24/2022) [place] [address] History of Past illness Narrative* Problem Noted Date Resolved Date Essential hypertension, benign 06/30/2004 0 03/12/2008 ROUTINE MEDICAL EXAM 06/30/2004 11/26/2014 CHEST PAIN NOS 06/30/2004 11/26/2014 documented as of this encounter (statuses as of 03/25/2022) [place] [address] History of Past illness Narrative* Problem Noted Date Resolved Date Essential hypertension, benign 06/30/2004 0 03/12/2008 ROUTINE MEDICAL EXAM 06/30/2004 11/26/2014 CHEST PAIN NOS 06/30/2004 11/26/2014 documented as of this encounter (statuses as of 03/27/2022) [place] [address] History of Past illness Narrative* Problem Noted Date Resolved Date Essential hypertension, benign 06/30/2004 0 03/12/2008 ROUTINE MEDICAL EXAM 06/30/2004 11/26/2014 CHEST PAIN NOS 06/30/2004 11/26/2014 documented as of this encounter (statuses as of 04/02/2022) [place] [address] History of Past illness Narrative* Problem Noted Date Resolved Date Essential hypertension, benign 06/30/2004 0 03/12/2008 ROUTINE MEDICAL EXAM 06/30/2004 11/26/2014 CHEST PAIN NOS 06/30/2004 11/26/2014 documented as of this encounter (statuses as of 04/09/2022) [facility] April 16, 2022 1:56pm Note Date/Time April 16, 2022 1 :41pm [facility] Medical Records Department [address] [place] [address] Discharge Summary 04/16/22 1341 MR#: [id number] Acct: [id number] Name: YEFRI YANEZ Rep #:[id number] : 1965 57 From: Carol Chiu DO PCP: Dr. Jose Ramon Turnre MD Status: [id number] Prov[facility] Date of Admission: 04/13/22 Date [...] Hospital Course: Mr. 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 Aravind Lopez at [facility]. He doeshave metastatic disease to the bone. [...] He is in the need of switching pin inserter regulator. He request to see Dr. Gaona however [...] distress and well nourished Constitutional Narrative: Obese, -Gambian, sitting up on the edge of the [...] Self Care Charges/Coding Visit Charges Inpatient E&M: 93504 Disch Hosp >30min 04/16/22 1355 <Electronically signed by Carol Chiu DO> Cosigner Signature (if applicable): CC: Dr. Jose Ramon Turner MD; Dr. Carol Chiu DO~ Signed [facility] Work Phone: Discharge summary Author Carol Chiu [facility] December 17, 2022 12:20pm Note Date/Time December 17, 2022 1 2:11pm [facility] Medical Records Department [address] [place] [id number] Discharge Summary 12/17/22 1210 MR#: [id number] Acct: [id number] Name: YEFRI YANEZ Rep #:[id number] : 1965 57 From: Carol Chiu DO PCP: Dr. Jose Ramon Turner MD Status: ADM IN [facility] Prov[facility] Date of Admission: 12/16/22 Date [...] Hospital Course: Mr. Yanez is a 57-year-old -Gambian male who presented to the emergency department at [facility] on 12/15/2022 with worsening shortness of breath. Patient told the admitting physician that he is supposed to be wearing his oxygen all the time at home however he is only wearing it whenneeded. His oxygen was written for by Dr. Yanez and is to be 3 L [id number]. He does have a history of systolic [...] failure--> home prescription is for 3 L [id number] Atrial fibrillation Hyperlipidemia GERD NIMCO Tobacco abuse Physical Exam Const no apparent distress and well nourished; Negative for average body habitus or healthy appearing Constitutional Narrative: Obese, -Gambian, male, lying in bed resting comfortably but [...] 71.5 H, Lymph % (Auto) 16.9 L, Andrews % (Auto) 9.8, Eos % (Auto) 1.0, [...] Self Care Charges/Coding Visit Charges Inpatient E&M: 38553 Disch Hosp >30min 12/17/22 1220 <Electronically signed by Carol Chiu DO> Cosigner Signature (if applicable): CC: Dr. Jose Ramon Turner MD; Dr. Carol Chiu DO; Dr. Cipriano Yanez MD~ Signed [facility] Work Phone: Evaluation note* Diagnosis Onset Date Resolution Status Mass of chest wall Active [facility] Work Phone: Evaluation note* Diagnosis Malignant neoplasm of kidney, unspecified laterality (HCC)- Primary Malignant neoplasm of kidney excluding renal pelvis, unspecified laterality (HCC) [facility] Diagnosis Mass of right chest wall- Primary [facility]* Diagnosis Screening for genitourinary condition Screening for other and unspecified genitourinary condition Malignant neoplasm of kidney, unspecified laterality (HCC) [facility] Diagnosis Malignant neoplasm of kidney, unspecified laterality (HCC) Malignant neoplasm of kidney excluding renal pelvis, unspecified laterality (HCC) Malignant neoplasm of kidney, unspecified laterality (HCC) [facility]* Diagnosis Malignant neoplasm of kidney, unspecified laterality (HCC) Malignant neoplasm of kidney excluding renal pelvis, unspecified laterality (HCC) [facility]* Diagnosis Malignant neoplasm of kidney, unspecified laterality (HCC) Malignant neoplasm of kidney excluding renal pelvis, unspecified laterality (HCC) Chest wall mass Swelling, mass, or lump in chest documented [facility]* Diagnosis Malignant neoplasm of kidney excluding renal pelvis, unspecified laterality (HCC)- Primary [facility]* Diagnosis Malignant neoplasm of kidney excluding renal pelvis, unspecified laterality (HCC) [facility]* Diagnosis Malignant neoplasm of kidney excluding renal pelvis, unspecified laterality (HCC)- Primary Renal cell carcinoma, unspecified laterality (HCC) [facility]* Diagnosis Malignant neoplasm of right kidney, except renal pelvis (HCC)- Primary Malignant neoplasm of kidney, except pelvis [facility]* Diagnosis Anxiety- Primary Anxiety state, unspecified [facility]* Diagnosis Malignant neoplasm of right kidney, except renal pelvis (HCC) Malignant neoplasm of kidney, except pelvis [facility]* Diagnosis Malignant neoplasm of kidney excluding renal pelvis, unspecified laterality (HCC)- Primary [facility]* Diagnosis Malignant neoplasm of right kidney, except renal pelvis (HCC) Malignant neoplasm of kidney, except pelvis Renal cell carcinoma, unspecified laterality (HCC) [facility]* Diagnosis Malignant neoplasm of kidney excluding renal pelvis, unspecified laterality (HCC) Renal cell carcinoma, unspecified laterality (HCC) documented in this encounter [facility] noteNo assessment information [facility] Work Phone: Evaluation note* Diagnosis Nonrheumatic mitral valve regurgitation- Primary Cardiomyopathy, nonischemic (HCC) Other primary cardiomyopathies documented [facility] this encounter [facility]* Diagnosis Malignant neoplasm of kidney excluding renal pelvis, unspecified laterality (HCC)- Primary Metastatic renal cell carcinoma, unspecified laterality (HCC) documented [facility]* Diagnosis Renal cell carcinoma, unspecified laterality (HCC)- Primary [facility] Diagnosis Malignant neoplasm of kidney excluding renal pelvis, unspecified laterality (HCC) [facility]* Diagnosis Renal cell carcinoma of right kidney (HCC)- Primary [facility]* Diagnosis Nonrheumatic mitral valve regurgitation- Primary Nonrheumatic mitral valve regurgitation [facility]* Diagnosis Renal cell carcinoma, unspecified laterality (HCC)- Primary Hypertension, unspecified type [facility]* Diagnosis Renal cell carcinoma of right kidney (HCC)- Primary [facility]* Diagnosis Malignant neoplasm of right kidney, except renal pelvis (HCC) Malignant neoplasm of kidney, except pelvis [facility]* Diagnosis Renal cell carcinoma, unspecified laterality (HCC)- Primary [facility]* Diagnosis Renal cell carcinoma of right kidney (HCC)- Primary [facility]* Diagnosis Renal cell carcinoma of right kidney (HCC)- Primary [facility]* Diagnosis Other specified disorders of kidney and ureter [facility]* Diagnosis OPENED IN ERROR- Primary To allow closing an encounter opened in error (used in SmartSet) documented in this encounter [facility] note* Diagnosis Pedal edema- Primary Edema Essential hypertension Unspecified essential hypertension Coronary artery disease involving yuhaaviatam coronary artery of yuhaaviatam heart without angina pectoris Disturbance in sleep behavior Sleep disturbance, unspecified [facility]* Diagnosis Renal cell carcinoma, unspecified laterality (HCC)- Primary Hypertension, unspecified type [facility]* Diagnosis Renal cell carcinoma, unspecified laterality (HCC)- Primary [facility]* Diagnosis Malignant neoplasm of kidney excluding renal pelvis, unspecified laterality (HCC) [facility]* Diagnosis Malignant neoplasm of right kidney, except renal pelvis (HCC)- Primary Malignant neoplasm of kidney, except pelvis [facility]* Diagnosis SOB (shortness of breath)- Primary Shortness of breath Encounter for screening for COVID-19 Renal mass, right Unspecified disorder of kidney and ureter [facility]* Diagnosis SOB (shortness of breath) Shortness of breath Encounter for screening for COVID-19 Renal mass, right Unspecified disorder of kidney and ureter [facility]* Diagnosis SOB (shortness of breath) Shortness of breath Encounter for screening for COVID-19 Renal mass, right Unspecified disorder of kidney and ureter [facility]* Diagnosis Renal cell carcinoma of right kidney (HCC)- Primary Encounter for screening for COVID-19 Renal mass, right Unspecified disorder of kidney and ureter [facility]* Diagnosis Metastatic renal cell carcinoma, unspecified laterality (HCC) Pneumonitis Pneumonia, organism unspecified Atrial fibrillation, unspecified type (HCC) Hypertension, unspecified type Encounter for screening for COVID-19 Renal mass, right Unspecified disorder of kidney and ureter [facility]* Diagnosis Paroxysmal atrial fibrillation (HCC)- Primary Atrial fibrillation Mitral valve insufficiency, unspecified etiology New onset a-fib (HCC) Atrial fibrillation Essential hypertension Unspecified essential hypertension Mixed hyperlipidemia 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) Encounter for screening for COVID-19 Renal mass, right Unspecified disorder of kidney and ureter [facility]* Diagnosis Paroxysmal atrial fibrillation (HCC)- Primary Atrial fibrillation Encounter for screening for COVID-19 Renal mass, right Unspecified disorder of kidney and ureter [facility]* Diagnosis Renal cell carcinoma of right kidney (HCC)- Primary Atrial fibrillation, unspecified type (HCC) Encounter for screening for COVID-19 Renal mass, right Unspecified disorder of kidney and ureter [facility] Diagnosis Renal cell carcinoma of right kidney (HCC)- Primary Encounter for screening for COVID-19 Renal mass, right Unspecified disorder of kidney and ureter [facility]* Diagnosis Preoperative examination- Primary Preoperative examination, [...] Other abnormal glucose Coronary artery disease involving yuhaaviatam coronary artery of yuhaaviatam heart, unspecified whether angina present Encounter for screening for COVID-19 Renal mass, right Unspecified disorder of kidney and ureter documented [facility]* Diagnosis Metastatic renal cell carcinoma, unspecified laterality (HCC)- Primary [facility]* Diagnosis Malignant neoplasm of right kidney, except renal pelvis (HCC) Malignant neoplasm of kidney, except pelvis documented in this encounter [facility] note* Diagnosis Onset Date Resolution Status Atrial fibrillation with RVR acute Hypoxemia acute Systolic CHF, acute acute Acute exacerbation of CHF (congestive heart failure) [facility] Work Phone: Evaluation note* Diagnosis Renal cell carcinoma of right kidney (HCC)- Primary documented in this encounter [facility] note* Diagnosis Renal cell carcinoma of right kidney (HCC)- Primary [facility]* Diagnosis Renal cell carcinoma of right kidney (HCC) [facility]* Diagnosis Screening for genitourinary condition Screening for other and unspecified genitourinary condition documented in this encounter [facility] note* Cardiovascular: Regular, rate and rhythm, no [...] induration. Appropriately TTP.Psychological: Appropriate mood and behavior [facility] Diagnosis Renal cell carcinoma of right kidney metastatic to other site (HCC)- Primary Paroxysmal atrial fibrillation (HCC)- Primary Atrial fibrillation Nonrheumatic mitral valve regurgitation Acute decompensated heart failure (HCC) Congestive heart failure, unspecified Essential hypertension Unspecified essential hypertension Tobacco use disorder NIMCO (obstructive sleep apnea) Obstructive sleep apnea (adult) (pediatric) documented in this [facility]* Diagnosis Paroxysmal atrial fibrillation (HCC)- Primary Atrial fibrillation Nonrheumatic mitral valve regurgitation Acute decompensated heart failure (HCC) Congestive heart failure, unspecified Essential hypertension Unspecified essential hypertension Tobacco use disorder NIMCO (obstructive sleep apnea) Obstructive sleep apnea (adult) (pediatric) documented in this encounter [facility] note* Diagnosis Metastatic renal cell carcinoma, unspecified laterality (HCC)- Primary documented in this encounter [facility] note* Diagnosis Renal cell carcinoma of right kidney (HCC)- Primary documented in this encounter [facility] note* Diagnosis Renal cell carcinoma of right kidney (HCC)- Primary documented in this encounter [facility] note* Diagnosis Renal cell carcinoma of right kidney (HCC)- Primary documented in this encounter [facility] note* Diagnosis Malignant neoplasm of right kidney, except renal pelvis (HCC)- Primary Malignant neoplasm of kidney, except pelvis documented in this encounter [facility] note* Diagnosis Onset Date Resolution Status Acute exacerbation of CHF (congestive heart failure) [facility] Work Phone: evaluation note* Diagnosis Onset Date Resolution Status Elevated serum creatinine ac elim ira Elevated troponin I level ac elim ira Hypoxemia acute Systolic CHF, acute acute Acute exacerbation of CHF (congestive heart failure) [facility] Work Phone: evaluation note* Diagnosis Onset Date Resolution Status Acute exacerbation of CHF (congestive heart failure) resolved Hypoxemia resolved Systolic CHF, acute resolved [facility] Work Phone: Evaluation note* Diagnosis Onset Date Resolution Status Acute exacerbation of CHF (congestive heart failure) resolved Hypoxemia resolved Systolic CHF, acute resolved CHF (congestive heart failure) acute Dyspnea acute [facility] Work Phone: Evaluation note* Diagnosis Onset Date Resolution Status Acute exacerbation of CHF (congestive heart failure) resolved Hypoxemia resolved Systolic CHF, acute resolved CHF (congestive heart failure) acute Dyspnea acute Thrush acute Hypertension [facility] Work Phone: Evaluation note* Diagnosis Onset Date Resolution Status Acute exacerbation of CHF (congestive heart failure) resolved Hypoxemia resolved Systolic CHF, acute resolved Thrush acute CHF (congestive heart failure) resolved Dyspnea resolved Cancer acute Renal failure acute CHF (congestive heart failure) resolved 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 Dyspnea acute [facility] Work Phone: Evaluation note* Diagnosis Onset [...] chronic Metastatic renal cell carcinoma to bone [facility] Work Phone: Evaluation note* Diagnosis Onset [...] carcinoma to bone chronic Renal cell cancer [facility] Work Phone: Evaluation note* Diagnosis Onset [...] chronic systolic heart failure chronic Chronic a-fib [facility] Work Phone: Evaluation note* Diagnosis Onset Date Resolution Status Renal failure acute CHF (congestive heart failure) resolved Acute on chronic renal insufficiency resolved Acute on chronic systolic heart failure resolved Acute respiratory insufficiency resolved Acute systolic heart failure resolved Hemoptysis resolved Shortness of breath resolved [facility] Work Phone: Evaluation note* Diagnosis Onset Date Resolution Status Acute on chronic renal insufficiency resolved Acute on chronic systolic heart failure resolved Acute respiratory insufficiency resolved Acute systolic heart failure resolved Hemoptysis resolved Shortness of breath resolved [facility] Work Phone: Evaluation note* Diagnosis Onset Date Resolution Status 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 Renal cell cancer [facility] Work Phone: Evaluation note* Diagnosis Pre-op [...] Other abnormal glucose Coronary artery disease involving yuhaaviatam coronary artery of yuhaaviatam heart, unspecified whether angina present Acute decompensated heart failure (HCC) Congestive heart failure, unspecified Paroxysmal atrial fibrillation (HCC) Atrial fibrillation [facility] Author Dr. Camacho [facility] April 14, 2022 12:43am Note Date/Time April 14, 2022 1 2:24am [facility] Medical Records Department [address] [place] [address] H&P Exam - Hospitalist 04/13/22 2334 MR#: [id number] Acct: [id number] Name: YEFRI YANEZ Rep #:[id number] : [...] 79.4 H, Lymph % (Auto) 12.7 L, Andrews % (Auto) 7.1, Eos % (Auto) 0.0, [...] 21:56 EST Reading Location ID and State: [facility] / [place] Tel , Service support , Assessment & [...] is subtherapeutic. Charges/Coding Visit Charges Inpatient E&M: 25626 Init Hosp L3 04/14/22 0043 <Electronically signed by Dangelo Camacho MD> Cosigner Signature (if applicable): CC: Dr. Jose Ramon Turner MD; Dr. Dangelo Camacho MD~ Signed [facility] Work Phone: History and physical note Author Dr. Lu [facility] June 28, 2022 12:52am Note Date/Time June 28, 2022 12: 20am [facility] Medical Records Department [address] [place] [address] H&P Exam - Hospitalist 06/28/22 0007 MR#: [id number] Acct: [id number] Name: YEFRI YANEZ Rep #:[id number] : 1965 57 From: Estelita Lu MD PCP: Dr. Jose Ramon Turner MD Status: [facility] - General General Date of Admission: 06/28/22 Date of Service: 06/28/22 Chief Complaint: Dyspnea, chest pain, wheezing, cough, recent incorrect Rx bumex. HPI Narrative The patient is a 57 y/o M w/ PMHx: Obesity, NIMCO on CPAP, PAF s/p prior cardioversion on coumadin, COPD, HTN, HLD, GERD, Metastatic renal CA s/p R nephrectomy, Tobacco use who presents to the [facility] ED on 06/27/22 with history of [...] 75.4 H, Lymph % (Auto) 16.8 L, Andrews % (Auto) 6.0, Eos % (Auto) 0.5, [...] nephrectomy, Tobacco use who presents to the [facility] ED on 06/27/22 with history of [...] spine 12/2021, 02/06/2022 right radical nephrectomy at [facility], CT scan on 03/26/2022 showed no evidence [...] 75 minutes. Charges/Coding Visit Charges Inpatient E&M: 95417 Init Hosp L3 Procedures Hospitalists Procedures: 94020 Advncd Care Plan 30 Min 06/28/22 0052 <Electronically signed by Estelita Lu MD> Cosigner Signature (if applicable): CC: Dr. Estelita Lu MD; Dr. Jose Ramon Turner MD~ Signed [facility] Work Phone: History of Present illness Narrative* [...] between urology, medical oncology, radiation oncology at [facility] was local therapy to metastatic sites and cytoreductive nephrectomy. * 12/08/2021-echo with EF 35%, LV and RV enlargement and hypokinesis * 12/26/2021-patient completed radiation to chest wall and L4 lesion * Patient has remained on cabo * Patient was scheduled for nephrectomy with Dr. Adriana Hodge, due to insurance issues patient could not be operated on at [facility], [place]. * 01/19/2022-patient scheduled for laparoscopic nephrectomy 02/03 * 01/20/2022-patient presented to [place] [facility] with shortness of breath * 01/27/2022-patient presented to [facility] with persistence of subjective dyspnea, expiratory wheezing * 01/29/2022-patient represented to [place] ED with chest tightness and shortness of [...] fatigue. Appetite is normal. Normal bowel function. [id number] [id number] 400 DO Work Phone: Hospital Discharge [...] torsemide if you do not already have it.[facility] Work Phone: [facility] (narrative)* Diagnostic Procedure Only (Routine) - Closed Specialty Diagnoses / Procedures Referred By [facility] t Referred To Contact MOLECULAR & FUNCTIONAL IMAGING Diagnoses Malignant neoplasm of kidney, unspecified laterality (HCC) Malignant neoplasm of kidney excluding renal pelvis, unspecified laterality (HCC) Procedures NM BONE WHOLE BODY BONE &/JOINT IMAGING WHOLE BODY Adriana Hodge MD [address] [place] [address] Molecular [facility] Functional Imaging [address] [place] [address] Referral ID Status Reason Start Date Expiration Date V isits Requested Visits Authorized [id number] Closed Auto-Generate d Referral 06/26/2021 08/10/2021 2 2 [facility] for referral (narrative)* Outpatient Procedure (Routine) - Authorized Specialty Diagnoses / Procedures Referred By [facility] Referred To Contact [facility] Diagnoses Malignant neoplasm of right kidney, except renal pelvis (HCC) Procedures ECHO ECHO TTHRC R-T 2D W/WOM-MODE COMPL SPEC&COLR D Stephany Ceballos PA-C [address] [place] [address] [facility] [place] [address] [place] [address] Referral ID Status Reason Start Date Expiration Date Visits Requested Visits Authorized [id number] Authorized Auto-Generat ed Referral 07/11/2021 07/11/2022 1 1 * Outpatient Procedure (Routine) - Authorized Specialty Diagnoses / Procedures Referred By [facility] Referred To Contact [facility] Diagnoses Malignant neoplasm of right kidney, except renal pelvis (HCC) Procedures ECG COMPLETE ECG ROUTINE ECG W/LEAST 12 LDS W/I&R Stephany Ceballos PA-C [address] [place] [address] [facility] [place] [id number] Referral ID Status Reason Start Date Expiration Date Visits Requested Visits Authorized [id number] Authorized Auto-Generat ed Referral 07/11/2021 07/11/2022 1 1 [facility] for referral (narrative)* Reason for Referral: impaired mobility, gait training, impaired cognition/safety awareness [facility] for referral (narrative)* Outpatient Procedure (Routine) - Denied Specialty Diagnoses / Procedures Referred By Sujatha vasquez Referred To Contact HEART [facility] [place] Diagnoses Acute decompensated heart failure (HCC) Paroxysmal atrial fibrillation (HCC) Procedures ECHO LIMITED ECHO TRANSTHORAC R-T 2D W/WO M-MODE REC COMP Sayra Tello MD [address] [place] [address] [place] [phone] Referral ID Status Reason Start Date Expiration Date V isits Requested Visits Authorized [id number] Denied Auto-Generate d Referral 02/16/2022 02/16/2023 1 0 [facility] for referral (narrative)* Diagnostic Procedure Only (Routine) - Authorized Specialty Diagnoses / Procedures Referred By Sujatha t Referred To Contact MOLECULAR & FUNCTIONAL IMAGING Diagnoses Renal cell carcinoma of right kidney (HCC) Procedures NM BONE WHOLE BODY BONE &/JOINT IMAGING WHOLE BODY Haylee Wilburn MD [address] [place] [address] Molecular & Functional Imaging [address] [place] [address] Referral ID Status Reason Start Date Expiration Date Visits Requested Visits Authorized [id number] Authorized Auto-Generat ed Referral 03/11/2022 04/10/2023 1 1 * MRI/CT (Routine) - Authorized Specialty Diagnoses / Procedures Referred By [place] t Referred To Contact CT IMAGING Diagnoses Renal cell carcinoma of right kidney (HCC) Procedures CT CHEST W IVCON DIAGNOSTIC COMPUTED TOMOGRAPHY THORAX W/CONTRAST Haylee Wilburn MD [address] [place] [address] Ct Imaging Referral ID Status Reason Start Date Expiration Date Visits Requested Visits Authorized [id number] Authorized Auto-Generat ed Referral 03/11/2022 04/10/2023 1 1 * MRI/CT (Routine) - Authorized Specialty Diagnoses / Procedures Referred By Sujatha vasquez Referred To Contact CT IMAGING Diagnoses Renal cell carcinoma of right kidney (HCC) Procedures CT ABD/PEL W IVCON CT ABD & PELVIS W/CONTRAST Halyee Wilburn MD [address] [place] [address] Ct Imaging Referral ID Status Reason Start Date Expiration Date Visits Requested Visits Authorized [id number] Authorized Auto-Generat ed Referral 03/11/2022 04/26/2022 1 1 [facility] for referral (narrative)* Outpatient Procedure (Routine) - Closed Specialty Diagnoses / Procedures Referred By Sujatha vasquez Referred To Contact [facility] Diagnoses Acute decompensated heart failure (HCC) Paroxysmal atrial fibrillation (HCC) Procedures ECHO LIMITED ECHO TRANSTHORAC R-T 2D W/WO M-MODE REC COMP Sayra Tello MD [address] , [address] [place] [address] [facility] [address] [place] [address] Referral ID Status Reason Start Date Expiration Date V isits Requested Visits Authorized [id number] Closed Patient Cleared - INN Insurance Found 02/19/2022 03/07/2022 1 1 [facility] for referral (narrative)No reason for referral information [facility]WBellevue [facility] Work Phone: [facility] Narrative* Diagnostic Procedure Only (Routine) - Closed Specialty Diagnoses / Procedures Referred By Sujatha vasquez Referred To Contact MOLECULAR & FUNCTIONAL IMAGING Diagnoses Malignant neoplasm of kidney, unspecified laterality (HCC) Malignant neoplasm of kidney excluding renal pelvis, unspecified laterality (HCC) Procedures NM BONE WHOLE BODY BONE &/JOINT IMAGING WHOLE BODY Adriana Hodge MD [address] [place] [address] Molecular [facility] [address] [place] [address] Referral ID Status Reason Start Date Expiration Date V isits Requested Visits Authorized [id number] Closed Auto-Generate d Referral 06/26/2021 08/10/2021 2 2 [facility] for visit Narrative* Auth/Cert Specialty Diagnoses / Procedures [facility] Referred To Contact Diagnoses Nonrheumatic mitral valve regurgitation Procedures CATH PLMT L HRT & ARTS W/NJX & ANGIO IMG S&I PRQ TRLUML CORONARY STENT W/ANGIO ONE ART/BRNCH CORONARY ANGIO W CATH PLACE W IMAGE INJECT & INTERP W LT HEART CATH W INJECT LT VENTRGRAPHY INSERT INTRACORONARY STENT-PER MAJOR VESSEL OR BRANCH [facility] [employer] [address] [place] [phone] Referral ID Status Reason Start Date Expiration Date Visits Re quested Visits Authorized [id number] 1 1 [facility] for visit Narrative* Outpatient Procedure (Routine) - Closed Specialty Diagnoses / Procedures Referred By Sujatha vasquez Referred To Contact [facility] Diagnoses Malignant neoplasm of right kidney, except renal pelvis (HCC) Procedures ECG COMPLETE ECG ROUTINE ECG W/LEAST 12 LDS W/I&R Stephany Ceballos PA-C [address] [place] [id number] [facility] [address] [place] [phone] Referral ID Status Reason Start Date Expiration Date V isits Requested Visits Authorized [id number] Closed Auto-Generate d Referral 07/11/2021 07/11/2022 1 1 [facility] for visit Narrative* Auth/Cert Specialty Diagnoses / Procedures Referred By Sujatha vasquez Referred To Contact HOSP INPATIENT Diagnoses Paroxysmal atrial fibrillation Acute decompensated heart failure (HCC) Paroxysmal atrial fibrillation (HCC) Procedures INITIAL HOSPITAL CARE/DAY 70 MINUTES Hosp Main [id number] [address] [place] [phone] Referral ID Status Reason Start Date Expiration Date Visits Re quested Visits Authorized [id number] 1 1 [facility] for visit Narrative* Diagnostic Procedure Only (Routine) - Closed Specialty Diagnoses / Procedures Referred By Sujatha vasquez Referred To Contact MOLECULAR & FUNCTIONAL IMAGING Diagnoses Renal cell carcinoma of right kidney (HCC) Procedures NM BONE WHOLE BODY BONE &/JOINT IMAGING WHOLE BODY Haylee Wilburn MD [address] [id number] Molecular & Functional Imaging [address] [place] [address] Referral ID Status Reason Start Date Expiration Date V isits Requested Visits Authorized [id number] Closed Auto-Generate d Referral 03/11/2022 04/10/2023 1 2 [facility] for visit Narrative* Outpatient Procedure (Routine) - Closed Specialty Diagnoses / Procedures Referred By Sujatha vasquez Referred To [facility] Diagnoses Acute decompensated heart failure (HCC) Paroxysmal atrial fibrillation (HCC) Procedures ECHO LIMITED ECHO TRANSTHORAC R-T 2D W/WO M-MODE REC COMP Sayra Tello MD [address] [facility], [address] [place] [address] [facility] [address] [place] [address] Referral ID Status Reason Start Date Expiration Date V isits Requested Visits Authorized [id number] Closed Patient Cleared - INN Insurance Found 02/19/2022 03/07/2022 1 1 [facility] Summary Purpose Family History No Family History [...] Documents on File Type Date Recorded Patient Access Specialist Expl anation Advance Directive(s) 02/05/2020 6:22 PM Advance Directive(s) 11/14/2019 1:53 PM Documents on File Type Date Recorded Patient Access Specialist Expl anation Advance Directive(s) 02/05/2020 6:22 PM Advance Directive(s) 11/14/2019 1:53 PM Documents on File Type Date Recorded Patient Access Specialist Expl anation Advance Directive(s) 06/26/2021 2:39 PM Advance Directive(s) 02/05/2020 6:22 PM Advance Directive(s) 11/14/2019 1:53 PM Documents on File Type Date Recorded Patient Access Specialist Expl anation Advance Directive(s) 06/26/2021 2:39 PM Advance Directive(s) 02/05/2020 6:22 PM Advance Directive(s) 11/14/2019 1:53 PM Advance Directive Response Recorded Date/ Time Living Will No June 04, 2019 5:40pm Power of Policy Writer Sales No June 03 5:40pm Documents on File Type Date Recorded Patient Access Specialist Expl anation Advance Directive(s) 07/31/2021 5:47 PM Advance Directive(s) 06/26/2021 2:39 PM Advance Directive(s) 02/05/2020 6:22 PM Advance Directive(s) 11/14/2019 1:53 PM Documents on File Type Date Recorded Patient Access Specialist Expl anation Advance Directive(s) 08/05/2021 5:50 AM Advance Directive(s) 07/31/2021 5:47 PM Advance Directive(s) 06/26/2021 2:39 PM Advance Directive(s) 02/05/2020 6:22 PM Advance Directive(s) 11/14/2019 1:53 PM Documents on File Type Date Recorded Patient Access Specialist Expl anation Advance Directive(s) 08/05/2021 5:50 AM Advance Directive(s) 07/31/2021 5:47 PM Advance Directive(s) 06/26/2021 2:39 PM Advance Directive(s) 02/05/2020 6:22 PM Advance Directive(s) 11/14/2019 1:53 PM Documents on File Type Date Recorded Patient Access Specialist Expl anation Advance Directive(s) 08/17/2021 3:47 PM Advance Directive(s) 08/05/2021 5:50 AM Advance Directive(s) 07/31/2021 5:47 PM Advance Directive(s) 06/26/2021 2:39 PM Advance Directive(s) 02/05/2020 6:22 PM Advance Directive(s) 11/14/2019 1:53 PM Documents on File Type Date Recorded Patient Access Specialist Expl anation Advance Directive(s) 08/17/2021 3:47 PM Advance Directive(s) 08/05/2021 5:50 AM Advance Directive(s) 07/31/2021 5:47 PM Advance Directive(s) 06/26/2021 2:39 PM Advance Directive(s) 02/05/2020 6:22 PM Advance Directive(s) 11/14/2019 1:53 PM Documents on File Type Date Recorded Patient Access Specialist Expl anation Advance Directive(s) 09/02/2021 6:28 PM [...] Documents on File Type Date Recorded Patient Access Specialist Expl anation Advance Directive(s) 09/02/2021 6:28 PM [...] Documents on File Type Date Recorded Patient Access Specialist Expl anation Advance Directive(s) 09/23/2021 1:52 PM [...] Documents on File Type Date Recorded Patient Access Specialist Expl anation Advance Directive(s) 09/23/2021 1:52 PM [...] Documents on File Type Date Recorded Patient Access Specialist Expl anation Advance Directive(s) 10/06/2021 1:03 PM Advance Directive(s) 09/23/2021 1:52 PM Advance Directive(s) 09/02/2021 6:28 PM Advance Directive(s) 08/17/2021 3:47 PM Advance Directive(s) 08/05/2021 5:50 AM Advance Directive(s) 07/31/2021 5:47 PM Advance Directive(s) 06/26/2021 2:39 PM Advance Directive(s) 02/05/2020 6:22 PM Advance Directive(s) 11/14/2019 1:53 PM Advance Directive Response Recorded Date/ Time Living Will No December 07 2:19pm Power of Policy Writer Sales No December 07 2:19pm Advance Directive Response Recorded Date/ Time Living Will No January 20 7:21pm Power of Policy Writer Sales No January 20, 2022 7:21pm Advance Directive Response Recorded Date/ Time Name of Medical Power of Policy Writer Sales January 29, 2022 11:59am Living Will No January 29 11:59am Power of Policy Writer Sales Yes January 29, 2022 11:59am Advance Directive Response Recorded Date/ Time Name of Medical Power of Policy Writer Sales January 29, 2022 11:59am Name of Medical Power of Policy Writer Sales MIYA YANEZ- April 13, 2022 10:43pm Living Will No April 13 10:43pm Power of Policy Writer Sales Yes April 13, 2022 10:43pm Advance Directive Response Recorded Date/ Time Name of Medical Power of Policy Writer Sales January 29, 2022 11:59am Name of Medical Power of Policy Writer Sales Miya gilliam April 14, 2022 1:15am Living Will No April 14 1:15am Power of Policy Writer Sales Yes April 14, 2022 1:15am Advance Directive Response Recorded Date/ Time Name of Medical Power of Policy Writer Sales January 29, 2022 12:59pm Name of Medical Power of Policy Writer Sales Miya gilliam April 14, 2022 2:15am Name of Medical Power of Policy Writer Sales miya yanez May 18, 2022 3:35pm Living Will Yes May 18, 2022 3:35pm Power of Policy Writer Sales Yes May 18 3:35pm Advance Directive Response Recorded Date/ Time Name of Medical Power of Policy Writer Sales January 29, 2022 12:59pm Name of Medical Power of Policy Writer Sales Miya gilliam April 14, 2022 2:15am Name of Medical Power of Policy Writer Sales Miya Yanez May 18, 2022 7:01pm Living Will Yes May 18, 2022 7:01pm Power of Policy Writer Sales Yes May 18 7:01pm Advance Directive Response Recorded Date/ Time Name of Medical Power of Policy Writer Sales Miya gilliam April 14, 2022 2:15am Name of Medical Power of Policy Writer Sales Miya Yanez May 18, 2022 7:01pm Name of Medical Power of Policy Writer Sales June 27, 2022 11:12pm Living Will Yes June 27, 2022 11:12pm Power of Policy Writer Sales Yes June 27 11:12pm Advance Directive Response Recorded Date/ Time Name of Medical Power of Policy Writer Sales Miya gilliam April 14, 2022 2:15am Name of Medical Power of Policy Writer Sales Miya Yanez May 18, 2022 7:01pm Name of Medical Power of Policy Writer Sales Miya Yanez June 28, 2022 1:12am Living Will No June 28, 2022 1:12am Power of Policy Writer Sales Yes June 28 1:12am Advance Directive Response Recorded Date/ Time Name of Medical Power of Policy Writer Sales Miya Yanez May 18, 2022 7:01pm Name of Medical Power of Policy Writer Sales Miya Yanez June 28, 2022 1:12am Living Will No June 28, 2022 1:12am Power of Policy Writer Sales Yes June 28 1:12am Advance Directive Response Recorded Date/ Time Name of Medical Power of Policy Writer Sales Lena Yanez December 15, 2022 4:41pm Living Will No December 15 4:41pm Power of Policy Writer Sales Yes December 15, 2022 4:41pm Advance Directive Response Recorded Date/ Time Name of Medical Power of Policy Writer Sales Lena Yanez December 15, 2022 3:41pm Living Will No December 15 3:41pm Power of Policy Writer Sales Yes December 15, 2022 3:41pm Advance Directive Response Recorded Date/ Time Living Will No December 15 3:41pm Power of Policy Writer Sales Yes December 15, 2022 3:41pm Advance Directive Response Recorded Date/ Time Living Will No December 15 4:41pm Power of Policy Writer Sales Yes December 15, 2022 4:41pm Date Activated [...] Do you have a Healthcare Power of Policy Writer Sales? Yes December 15, 2022 4:41pm Reason for Referral Specialty Diagnoses / Procedures Referred By [facility] t Referred To Contact CT IMAGING Diagnoses Malignant neoplasm of kidney, unspecified laterality (HCC) Malignant neoplasm of kidney excluding renal pelvis, unspecified laterality (HCC) Procedures CT ABD/PEL WO IVCON CT ABD & PELVIS W/O CONTRAST Adriana Hodge MD [address] [facility] [place] [address] Ct Imaging Referral ID Status Reason Start Date Expiration Date Visits Requested Visits Authorized [id number] Pending Review Auto-Generat ed Referral 06/23/2021 07/23/2022 1 1 Specialty Diagnoses / Procedures Referred By [facility] Referred To Contact CT IMAGING Diagnoses Malignant neoplasm of kidney, unspecified laterality (HCC) Malignant neoplasm of kidney excluding renal pelvis, unspecified laterality (HCC) Procedures CT ABD/PEL W IVCON CT ABD & PELVIS W/CONTRAST Adriana Hodge MD [address] [place] [address] Ct Imaging Referral ID Status Reason Start Date Expiration Date Visits Requested Visits Authorized [id number] Pending Review Auto-Generat ed Referral 06/23/2021 07/23/2022 1 1 Specialty Diagnoses / Procedures Referred By [facility] Referred To Contact MOLECULAR & FUNCTIONAL IMAGING Diagnoses Malignant neoplasm of kidney, unspecified laterality (HCC) Malignant neoplasm of kidney excluding renal pelvis, unspecified laterality (HCC) Procedures NM BONE WHOLE BODY BONE &/JOINT IMAGING WHOLE BODY Adriana Hodge MD [address] [place] [address] Molecular & Functional Imaging [address] [place] [address] Referral ID Status Reason Start Date Expiration Date Visits Requested Visits Authorized [id number] Pending Review Auto-Generat ed Referral 06/23/2021 07/23/2022 1 1 Specialty Diagnoses / Procedures Referred By [facility] Referred To Contact Oncology Diagnoses Malignant neoplasm of kidney, unspecified laterality (HCC) Malignant neoplasm of kidney excluding renal pelvis, unspecified laterality (HCC) Procedures CONSULT TO ONCOLOGY OFFICE/OUTPATIENT [facility] 60-74 MINUTES Adriana Hodge MD [address] [place] [address] Referral ID Status Reason Start Date Expiration Date Visits Requested Visits Authorized [id number] Pending Review PCP Requested Referral 06/23/2021 06/23/2022 1 1 Specialty Diagnoses / Procedures Referred By [facility] t Referred To Contact RADIO CT SCAN [facility] Diagnoses Malignant neoplasm of kidney, unspecified laterality (HCC) Malignant neoplasm of kidney excluding renal pelvis, unspecified laterality (HCC) Procedures CT ABD/PEL W IVCON CT ABD & PELVIS W/CONTRAST Adriana Hodge MD [address] [place] [address] Scan [facility] [address] [place] [address] Referral ID Status Reason Start Date Expiration Date V isits Requested Visits Authorized [id number] Closed Auto-Generate d Referral 06/26/2021 08/10/2021 1 1 Specialty Diagnoses / Procedures Referred By [facility] t Referred To Contact MR IMAGING Diagnoses Malignant neoplasm of kidney excluding renal pelvis, unspecified laterality (HCC) Renal cell carcinoma, unspecified laterality (HCC) Procedures MRI BRAIN WO/W IVCON MRI BRAIN BRAIN STEM W/O W/CONTRAST MATERIAL Kenneth Chester MD [address] [place] [address] Mr Imaging Referral ID Status Reason Start Date Expiration Date Visits Requested Visits Authorized [id number] Authorized Auto-Generat ed Referral 07/14/2021 08/28/2021 1 1 Specialty Diagnoses / Procedures Referred By [facility] t Referred To Contact CT IMAGING Diagnoses Malignant neoplasm of right kidney, except renal pelvis (HCC) Renal cell carcinoma, unspecified laterality (HCC) Procedures CT CHEST W IVCON DIAGNOSTIC COMPUTED TOMOGRAPHY THORAX W/CONTRAST Kenneth Chester MD [address] [place] [address] Ct Imaging Referral ID Status Reason Start Date Expiration Date V isits Requested Visits Authorized [id number] Closed Auto-Generate d Referral 07/14/2021 08/28/2021 1 1 Referral ID Status Reason Start Date Expiration Date V isits Requested Visits Authorized [id number] Closed Auto-Generate d Referral 07/14/2021 08/28/2021 1 1 Specialty Diagnoses / Procedures Referred By Cont[facility] t Referred To Contact CT IMAGING Diagnoses Malignant neoplasm of right kidney, except renal pelvis (HCC) Malignant neoplasm of kidney excluding renal pelvis, unspecified laterality (HCC) Procedures CT ABD/PEL W IVCON CT ABD & PELVIS W/CONTRAST Kenneth Chester MD [address] [place] [address] Ct Imaging Referral ID Status Reason Start Date Expiration Date Visits Requested Visits Authorized [id number] Pending Review Auto-Generat ed Referral 07/28/2021 08/27/2022 1 1 Specialty Diagnoses / Procedures Referred By Contac t Referred To Contact MR IMAGING Diagnoses Other specified disorders of kidney and ureter Procedures MRI KIDNEY WO/W IVCON MRI ABDOMEN W/O & W/CONTRAST MATERIAL Godfrey Ohara, KEYUR.CROWN ATTACHER [address] [place] [address] Mr Imaging Referral ID Status Reason Start Date Expiration Date Visits Requested Visits Authorized [id number] Pending Review Auto-Generat ed Referral 08/08/2021 09/07/2022 1 1 Specialty Diagnoses / Procedures Referred By Contac t Referred To Contact CT IMAGING Diagnoses Malignant neoplasm of right kidney, except renal pelvis (HCC) Malignant neoplasm of kidney excluding renal pelvis, unspecified laterality (HCC) Procedures CT CHEST W IVCON DIAGNOSTIC COMPUTED TOMOGRAPHY THORAX W/CONTRAST Stephany Ceballos PA-C [id number] Imaging Referral ID Status Reason Start Date Expiration Date Visits Requested Visits Authorized [id number] Pending Review Auto-Generat ed Referral 08/21/2021 09/19/2022 1 1 Specialty Diagnoses / Procedures Referred By Contac t Referred To Contact CT IMAGING Diagnoses Malignant neoplasm of right kidney, except renal pelvis (HCC) Malignant neoplasm of kidney excluding renal pelvis, unspecified laterality (HCC) Procedures CT ABD/PEL W IVCON CT ABD & PELVIS W/CONTRAST Stephany Ceballos PA-C [id number] Imaging Referral ID Status Reason Start Date Expiration Date Visits Requested Visits Authorized [id number] Pending Review Auto-Generat ed Referral 08/21/2021 09/19/2022 1 1 Specialty Diagnoses / Procedures Referred By Cont[facility] t Referred To Contact CT IMAGING Diagnoses Malignant neoplasm of right kidney, except renal pelvis (HCC) Procedures CT CHEST W IVCON DIAGNOSTIC COMPUTED TOMOGRAPHY THORAX W/CONTRAST Godfrey Ohara APRN.CROWN ATTACHER [address] [place] [address] Ct Imaging Referral ID Status Reason Start Date Expiration Date Visits Requested Visits Authorized [id number] Pending Review Auto-Generat ed Referral 10/16/2021 09/26/2022 1 1 Specialty Diagnoses / Procedures Referred By Cont[facility] t Referred To Contact CT IMAGING Diagnoses Malignant neoplasm of right kidney, except renal pelvis (HCC) Procedures CT ABD/PEL W IVCON CT ABD & PELVIS W/CONTRAST Godfrey Ohara APRN.CROWN ATTACHER [address] [address] [address] Imaging Referral ID Status Reason Start Date Expiration Date Visits Requested Visits Authorized [id number] Pending Review Auto-Generat ed Referral 10/16/2021 09/26/2022 1 1 Specialty Diagnoses / Procedures Referred By Cont[facility] t Referred To Contact CT IMAGING Diagnoses SOB (shortness of breath) Procedures CT CHEST W IVCON PE DIAGNOSTIC COMPUTED TOMOGRAPHY THORAX W/CONTRAST Daksha Melo PA-C [address] [place] [address] Ct Imaging Referral ID Status Reason Start Date Expiration Date Visits Requested Visits Authorized [id number] Pending Review Auto-Generat ed Referral 09/02/2021 10/02/2022 1 1 Specialty Diagnoses / Procedures Referred By [facility] t Referred To Contact CT IMAGING Diagnoses Malignant neoplasm of right kidney, except renal pelvis (HCC) Procedures CT CHEST W IVCON DIAGNOSTIC COMPUTED TOMOGRAPHY THORAX W/CONTRAST Adriana Hodge MD [address] [place] [address] Ct Imaging Referral ID Status Reason Start Date Expiration Date Visits Requested Visits Authorized [id number] Closed Financial Clearance Required - OON Payor [...] ABD & PELVIS W/CONTRAST Adriana Hodge MD [address] [place] [address] Ct Imaging Referral ID Status Reason Start Date Expiration Date Visits Requested Visits Authorized [id number] Closed Financial Clearance Required - OON Payor OON Notification Letter Clearance Not Met - Pt Rescheduled/Canc elled/Chose Not to Proceed OON/Self Pay Override 10/22/2021 11/21/2022 1 0 Specialty Diagnoses / Procedures Referred By Contac t Referred To Contact Diagnoses Renal cell carcinoma of right kidney (HCC) Procedures REFER TO PACC - PRE ANESTHESIA CONSULTATION CLINIC OFFICE/OUTPATIENT [facility] MDM 60-74 MINUTES Adriana Hodge MD [address] [place] [address] [phone] Referral ID Status Reason Start Date Expiration Date V isits Requested Visits Authorized [id number] Denied PCP Requested Referral 12/30/2021 12/30/2022 1 0 Specialty Diagnoses / Procedures Referred By Cont[facility] t Referred To Contact [facility] Diagnoses Renal cell carcinoma of right kidney (HCC) Procedures ECG COMPLETE ECG ROUTINE ECG W/LEAST 12 LDS W/I&R Adriana Hodge MD [address] [place] [address] [address] [id number] Referral ID Status Reason Start Date Expiration Date V isits Requested Visits Authorized [id number] Denied Auto-Generate d Referral 12/30/2021 12/30/2022 1 0 Medications Administered Section Inactive Administered Medications - up to 3 most recent administrations Medication Order MAR Action Action Date Dose Rate Site INV CABOZANTINIB 40 mg TABLET ([facility] 1820/20-983) 40 mg, ORAL, ONCE, [...] Date Dose Rate Site INV NIVOLUMAB ([facility] 1820/20-983) 480 mg in NaCl [...] Site INV CABOZANTINIB 20 mg TABLET ([facility] 1820/20-983) 20 mg, ORAL, ONCE, [...] CHRONIC HEART FAILURE AECHF AECHF AECHF S/P [facility] 04-13-22 CHF and AFIB (NO CONSULT) [...] CHRONIC HEART FAILURE AECHF AECHF AECHF S/P [facility] 04-13-22 CHF and AFIB (NO CONSULT) [...] bone Chief Complaint AECHF AECHF AECHF S/P [facility] 04-13-22 CHF and AFIB (NO CONSULT) [...] DATE CREATED AUTHOR AUTHOR'S ORGANIZ ATION 02/05/2022 [facility] DATE CREATED AUTHOR AUTHOR'S ORGANIZ ATION 03/17/2022 [facility] DATE CREATED AUTHOR AUTHOR'S ORGANIZ ATION 04/04/2022 [facility] DATE CREATED AUTHOR AUTHOR'S ORGANIZ ATION 04/25/2022 [facility] DATE CREATED AUTHOR AUTHOR'S ORGANIZ ATION 05/18/2022 [facility] DATE CREATED AUTHOR AUTHOR'S ORGANIZ ATION 07/19/2022 [facility] DATE CREATED AUTHOR AUTHOR'S ORGANIZ ATION 10/17/2024 [facility] Care Teams (unrecognized sec tion [...] MD Primary Care Provider Activ e Dr. eKi Dunn , DO Emergency Provider Active Dr. Dangelo Camacho MD Admit Provider, Other Provide r Active Dr. Carlo Chiu , DO Other Provider Active Dr. [...] 2021 Siri Harris MD EMERGENCY Active Start: 2021 Family Physician Unavailable FAMILY Active Start: June 19, 2021 MIYA YANEZ Next of Kin Active Start: June 19, 2021 Multiple Punch Press Operator Relationship Specialty [place] [address] [place] [address] PCP - General Internal Medicine 10/10/18 Multiple Punch Press Operator Relationship Specialty Start [place] [address] [place] [address] PCP - General Internal Medicine 10/10/18 Multiple Punch Press Operator Relationship Specialty Start [place] [address] [place] [address] PCP - General Internal Medicine 10/10/18 Multiple Punch Press Operator Relationship Specialty Start [place] [address] [place] [address] PCP - General Internal Medicine 10/10/18 Multiple Punch Press Operator Relationship Specialty Start [place] [address] [place] [address] PCP - General Internal Medicine 10/10/18 Multiple Punch Press Operator Relationship Specialty Start [place] [address] [place] [address] PCP - General Internal Medicine 10/10/18 Multiple Punch Press Operator Relationship Specialty Start [place] [address] [place] [address] PCP - General Internal Medicine 10/10/18 Multiple Punch Press Operator Relationship Specialty Start [place] [address] [place] [address] PCP - General Internal Medicine 10/10/18 Multiple Punch Press Operator Relationship Specialty Start [place] [address] [place] [address] PCP - General Internal Medicine 10/10/18 Multiple Punch Press Operator Relationship Specialty Start [place] [address] [place] [address] PCP - General Internal Medicine 10/10/18 Multiple Punch Press Operator Relationship Specialty Start [place] [address] [place] [address] PCP - General Internal Medicine 10/10/18 Multiple Punch Press Operator Relationship Specialty Start [place] [address] [place] [address] PCP - General Internal Medicine 10/10/18 Multiple Punch Press Operator Relationship Specialty Start [place] [address] [place] [address] PCP - General Internal Medicine 10/10/18 Multiple Punch Press Operator Relationship Specialty Start [place] [address] [place] [address] PCP - General Internal Medicine 10/10/18 Multiple Punch Press Operator Relationship Specialty Start Date End Date Daksha Turner MD [address] [place] [address], [place] [address] PCP - General Family Practice 07/18/21 Multiple Punch Press Operator Relationship Specialty Start Date End Date Daksha Turner MD [address] [place] [address], [place] [address] PCP - General Family Practice 07/18/21 Multiple Punch Press Operator Relationship Specialty Start Date End Date Daksha Turner MD [address] [place] [address], [place] [address] PCP - General Family Practice 07/18/21 Multiple Punch Press Operator Relationship Specialty Start Date End Date Daksha Turner MD [address] [facility] [place] [address] PCP - General Family Practice 07/18/21 Multiple Punch Press Operator Relationship Specialty Start Date End Date Daksha Turner MD [address] [facility] [place] [address] PCP - General Family Practice 07/18/21 Multiple Punch Press Operator Relationship Specialty Start Date End Date Daksha Turner MD [address] [facility] [place] [address] PCP - General Family Practice 07/18/21 Multiple Punch Press Operator Relationship Specialty Start Date End Date Daksha Turner MD [address] [facility] [place] [address] PCP - General Family Practice 07/18/21 Multiple Punch Press Operator Relationship Specialty Start Date End Date Daksha Turner MD [address] [facility] [facility] [place] [address] PCP - General Family Practice 07/18/21 Multiple Punch Press Operator Relationship Specialty Start Date End Date Daksha Turner MD [address] [facility] [place] [address] PCP - General Family Practice 07/18/21 Multiple Punch Press Operator Relationship Specialty Start Date End Date Daksha Turner MD [address] [facility] [facility] [place] [address] PCP - General Family Practice 07/18/21 Multiple Punch Press Operator Relationship Specialty Start Date End Date Daksha Turner MD [address] [facility] [facility] [place] [address] PCP - General Family Practice 07/18/21 Multiple Punch Press Operator Relationship Specialty Start Date End Date Daksha Turner MD [address] [place] [address] PCP - General Family Practice 07/18/21 Multiple Punch Press Operator Relationship Specialty Start Date End Date Daksha Turner MD [address] [place] [address] PCP - General Family Practice 07/18/21 Multiple Punch Press Operator Relationship Specialty Start Date End Date Daksha Turner MD [address] [place] [address] PCP - General Family Practice 07/18/21 Multiple Punch Press Operator Relationship Specialty Start Date End Date Daksha Turner MD [address] [place] [address] PCP - General Family Practice 07/18/21 Multiple Punch Press Operator Relationship Specialty Start Date End Date Daksha Turner MD [address] [place] [address] PCP - General Family Practice 07/18/21 Multiple Punch Press Operator Relationship Specialty Start Date End Date Daksha Turner MD [address] [place] [address] PCP - General Family Practice 07/18/21 Multiple Punch Press Operator Relationship Specialty Start Date End Date Daksha Turner MD [address] [place] [address] PCP - General Family Practice 07/18/21 Multiple Punch Press Operator Relationship Specialty Start Date End Date Daksha Turner MD [address] [place] [address] PCP - General Family Practice 07/18/21 Multiple Punch Press Operator Relationship Specialty Start Date End Date Daksha Turner MD [address] [place] [address] PCP - General Family Practice 07/18/21 Multiple Punch Press Operator Relationship Specialty Start Date End Date Daksha Turner MD [address] [place] [address] PCP - General Family Practice 07/18/21 Multiple Punch Press Operator Relationship Specialty Start Date End Date Daksha Turner MD [address] [place] [address] PCP - General Family Practice 07/18/21 Multiple Punch Press Operator Relationship Specialty Start Date End Date Daksha Turner MD [address] [place] [address] PCP - General Family Practice 07/18/21 Multiple Punch Press Operator Relationship Specialty Start Date End Date Daksha Turner MD [address] [place] [address] PCP - General Family Practice 07/18/21 Sary Jonas, [employer] TEND[employer] Vet Assistant Oncology 08/11/21 Multiple Punch Press Operator Relationship Specialty Start Date End Date Daksha Turner MD [address] [place] [address] PCP - General Family Practice 07/18/21 Sary Jonas, [employer]OU[employer]TAIN [employer]ACHINE TENDER Vet Assistant Oncology 08/11/21 Multiple Punch Press Operator Relationship Specialty Start Date End Date Daksha Turner MD [address] [place] [address] PCP - General Family Practice 07/18/21 Sumi, Sary, [employer] T[employer] Vet Assistant Oncology 08/11/21 Multiple Punch Press Operator Relationship Specialty Start Date End Date Daksha Turner MD [address] [place] [address] PCP - General Family Practice 07/18/21 Golias, Sary, [employer]ACH[employer] T[employer] Vet Assistant Oncology 08/11/21 Multiple Punch Press Operator Relationship Specialty Start Date End Date Daksha Turner MD [address] [place], [place] [id number] PCP - General Family Practice 07/18/21 Golias, Sary, [employer] T[employer] Vet Assistant Oncology 08/11/21 Multiple Punch Press Operator Relationship Specialty Start Date End Date Daksha Turner MD [address] [facility], [place] [address] PCP - General Family Practice 07/18/21 Golelpidio, Sary, [facility] Vet Assistant Oncology 08/11/21 Lalo Black MD [address] [place] [address] Primary Staff Physician Cardiology 08/19/21 Multiple Punch Press Operator Relationship Specialty Start Date End Date Daksha Turner MD [address] [address] PCP - General Family Practice 07/18/21 Sumi, Sary, [facility] Vet Assistant Oncology 08/11/21 Lalo Black MD [address] [place], [place] [id number] Primary Staff Physician Cardiology 08/19/21 Multiple Punch Press Operator Relationship Specialty Start Date End Date Daksha Turner MD [address] [address] PCP - General Family Practice 07/18/21 Sumi, Sary, [facility] Vet Assistant Oncology 08/11/21 Lalo Black MD [address] [place], [place] [id number] Primary Staff Physician Cardiology 08/19/21 Multiple Punch Press Operator Relationship Specialty Start Date End Date Daksha Turner MD [address] [facility] [place] [address] PCP - General Family Practice 07/18/21 Sary Jonas, [facility] Vet Assistant Oncology 08/11/21 Lalo Black MD [address] [place] [address] Primary Staff Physician Cardiology 08/19/21 Multiple Punch Press Operator Relationship Specialty Start Date End Date Daksha Turner MD [address] [facility] [place] [address] PCP - General Family Practice 07/18/21 Sary Jonas, [facility] Vet Assistant Oncology 08/11/21 Lalo Black MD [address] [place] [address] Primary Staff Physician Cardiology 08/19/21 Multiple Punch Press Operator Relationship Specialty Start Date End Date Daksha Turner MD [address] [facility] [place], [place] 539881 PCP - General Family Practice 07/18/21 Sary Jonas, [facility] Vet Assistant Oncology 08/11/21 Lalo Black MD [address] [place] [address] Primary Staff Physician Cardiology 08/19/21 Multiple Punch Press Operator Relationship Specialty Start Date End Date Daksha Turner MD [address] [facility] [place] [address] PCP - General Family Practice 07/18/21 Sary Jonas, [facility] Vet Assistant Oncology 08/11/21 Lalo Black MD [address] [place] [address] Primary Staff Physician Cardiology 08/19/21 Multiple Punch Press Operator Relationship Specialty Start Date End Date Daksha Turner MD [address] [place], [place] 528371 PCP - General Family Practice 07/18/21 Sary Jonas, [facility] Vet Assistant Oncology 08/11/21 Lalo Black MD [address] [place] [address] Primary Staff Physician Cardiology 08/19/21 Multiple Punch Press Operator Relationship Specialty Start Date End Date Daksha Turner MD [address] [place] [address] PCP - General Family Practice 07/18/21 Sary Jonas, [facility] Vet Assistant Oncology 08/11/21 Lalo Black MD [address] [place] [address] Primary Staff Physician Cardiology 08/19/21 Multiple Punch Press Operator Relationship Specialty Start Date End Date Daksha Turner MD [address] [place], [place] 600901 PCP - General Family Practice 07/18/21 Sary Jonas, [facility] Vet Assistant Oncology 08/11/21 Lalo Black MD [address] [place] [address] Primary Staff Physician Cardiology 08/19/21 Multiple Punch Press Operator Relationship Specialty Start Date End Date Daksha Turner MD [address] [place] [address] PCP - General Family Practice 07/18/21 Sary Jonas, [facility] Vet Assistant Oncology 08/11/21 Lalo Black MD [address] [place] [address] Primary Staff Physician Cardiology 08/19/21 Rahul Knight, RN Research Nurse 09/03/21 Multiple Punch Press Operator Relationship Specialty Start Date End Date Daksha Turner MD [address] [facility], [place] 105891 PCP - General Family Practice 07/18/21 Sary Jonas, [facility] Vet Assistant Oncology 08/11/21 Lalo Black MD [address] [place], [place] [id number] Primary Staff Physician Cardiology 08/19/21 Rahul Knight, RN Research Nurse 09/03/21 Multiple Punch Press Operator Relationship Specialty Start Date End Date Daksha Turner MD [address] [place], [place] [id number] PCP - General Family Practice 07/18/21 Sary Jonas, [facility] Vet Assistant Oncology 08/11/21 Lalo Black MD [address] [place] [address] Primary Staff Physician Cardiology 08/19/21 Rahul Knight, RN Research Nurse 09/03/21 Multiple Punch Press Operator Relationship Specialty Start Date End Date Daksha Turner MD [address] [facility] [address] PCP - General Family Practice 07/18/21 Sary Joans, [facility] Vet Assistant Oncology 08/11/21 Lalo Black MD [address] [place] [address] Primary Staff Physician Cardiology 08/19/21 Rahul Knight, RN Research Nurse 09/03/21 Multiple Punch Press Operator Relationship Specialty Start Date End Date Daksha Turner MD [address] [place], [place] [id number] PCP - General Family Practice 07/18/21 Sary Jonas, [facility] Vet Assistant Oncology 08/11/21 Lalo Black MD [address] [place] [address] Primary Staff Physician Cardiology 08/19/21 Rahul Knight, RN Research Nurse 09/03/21 Multiple Punch Press Operator Relationship Specialty Start Date End Date Daksha Turner MD [address] [place], [place] [id number] PCP - General Family Practice 07/18/21 [facility] Vet Assistant Oncology 08/11/21 Lalo Black MD [address] [place], [place] [id number] Primary Staff Physician Cardiology 08/19/21 Rahul Knight, RN Research Nurse 09/03/21 Safia Carr, [facility] [address] [place] [address] Transitional Care Pharmacist Pharmacy 09/29/21 10/30/21 Multiple Punch Press Operator Relationship Specialty Start Date End Date Daksha Turner MD [address] [place], [place] [id number] PCP - General Family Practice 07/18/21 [facility] Vet Assistant Oncology 08/11/21 Lalo Black MD [address] [place] [address] Primary Staff Physician Cardiology 08/19/21 Rahul Knight, RN Research Nurse 09/03/21 Safia Carr, [facility] [address] [place] [address] Transitional Care Pharmacist Pharmacy 09/29/21 10/30/21 Multiple Punch Press Operator Relationship Specialty Start Date End Date Daksha Turner MD [address] [place], [place] [id number] PCP - General Family Practice 07/18/21 Sary Jonas, [facility] Vet Assistant Oncology 08/11/21 Lalo Black MD [address] [place] [address] Primary Staff Physician Cardiology 08/19/21 Rahul Knight, RN Research Nurse 09/03/21 Multiple Punch Press Operator Relationship Specialty Start Date End Date Daksha Turner MD [address] [place], [place] 142231 PCP - General Family Practice 07/18/21 Sary Jonas, [facility] Vet Assistant Oncology 08/11/21 Lalo Black MD [address] [place] [address] Primary Staff Physician Cardiology 08/19/21 Rahul Knight, RN Research Nurse 09/03/21 Safia Carr, [facility] [address] [place] [address] Transitional Care Pharmacist Pharmacy 09/29/21 10/30/21 Multiple Punch Press Operator Relationship Specialty Start Date End Date Daksha Turner MD [address] [place], [place] [id number] PCP - General Family Practice 07/18/21 Sary Jonas, [facility] Vet Assistant Oncology 08/11/21 Lalo Black MD [address] [place] [address] Primary Staff Physician Cardiology 08/19/21 Rahul Knight, RN Research Nurse 09/03/21 Safia Carr, [facility] [address] [place] [address] Transitional Care Pharmacist Pharmacy 09/29/21 10/30/21 Multiple Punch Press Operator Relationship Specialty Start Date End Date Daksha Turner MD [address] [address] PCP - General Family Practice 07/18/21 Sary Jonas, [facility] Vet Assistant Oncology 08/11/21 Lalo Black MD [address] [place] [address] Primary Staff Physician Cardiology 08/19/21 Rahul Knight, RN Research Nurse 09/03/21 Safia Carr, [facility] [address] [place] [address] Transitional Care Pharmacist Pharmacy 09/29/21 10/30/21 Multiple Punch Press Operator Relationship Specialty Start Date End Date Daksha Turner MD [address] [place], [place] [id number] PCP - General Family Practice 07/18/21 Sary Jonas, [facility] Vet Assistant Oncology 08/11/21 Lalo Black MD [address] [place] [address] Primary Staff Physician Cardiology 08/19/21 Rahul Knight, RN Research Nurse 09/03/21 Safia Carr, [facility] [address] [place] [address] Transitional Care Pharmacist Pharmacy 09/29/21 10/30/21 Multiple Punch Press Operator Relationship Specialty Start Date End Date Daksha Turner MD [address] [place], [place] [id number] PCP - General Family Practice 07/18/21 Sary Jonas, [facility] Vet Assistant Oncology 08/11/21 Lalo Black MD [address] [place], [place] 8038[address] Primary Staff Physician Cardiology 08/19/21 Rahul Knight, RN Research Nurse 09/03/21 Safia Carr, [facility] [address] [place] [address] Transitional Care Pharmacist Pharmacy 09/29/21 10/30/21 Multiple Punch Press Operator Relationship Specialty Start Date End Date Daksha Turner MD [address] [place], [place] [id number] PCP - General Family Practice 07/18/21 Sary Jonas, [facility] Vet Assistant Oncology 08/11/21 Lalo Black MD [address] [place] [address] Primary Staff Physician Cardiology 08/19/21 Rahul Knight, RN Research Nurse 09/03/21 Multiple Punch Press Operator Relationship Specialty Start Date End Date Daksha Turner MD [address] [place], [place] 749231 PCP - General Family Practice 07/18/21 Sary Jonas, [facility] Vet Assistant Oncology 08/11/21 Lalo Black MD [address] [place], [place] [id number] Primary Staff Physician Cardiology 08/19/21 Rahul Knight, RN Research Nurse 09/03/21 Safia Carr, [facility] [address] [place] [address] Transitional Care Pharmacist Pharmacy 09/29/21 10/30/21 Multiple Punch Press Operator Relationship Specialty Start Date End Date Daksha Turner MD [address] [place], [place] [id number] PCP - General Family Practice 07/18/21 Sary Jonas, [facility] Vet Assistant Oncology 08/11/21 Lalo Black MD [address] [place], [place] [id number] Primary Staff Physician Cardiology 08/19/21 Rahul Knight, RN Research Nurse 09/03/21 Multiple Punch Press Operator Relationship Specialty Start Date End Date Daksha Turner MD [address] [place], [place] [phone] PCP - General Family Practice 07/18/21 Sary Jonas, [facility] Vet Assistant Oncology 08/11/21 [place] [address] [place] [address] Primary Staff Physician Cardiology 08/19/21 Rahul Knight, RN Research Nurse 09/03/21 Safia Carr, [facility] [address] [place], [place] [phone] Transitional Care Pharmacist Pharmacy 09/29/21 10/30/21 Multiple Punch Press Operator Relationship Specialty Start Date End Date Daksha Turner MD [address] [place], [place] [id number] PCP - General Family Practice 07/18/21 Sary Jonas, [facility] Vet Assistant Oncology 08/11/21 Lalo Black MD [address] [place] [address] Primary Staff Physician Cardiology 08/19/21 Rahul Knight, RN Research Nurse 09/03/21 Multiple Punch Press Operator Relationship Specialty Start Date End Date Daksha Turner MD [address] [place], [place] [id number] PCP - General Family Practice 07/18/21 Sary Jonas, [facility] Vet Assistant Oncology 08/11/21 Lalo Black MD [address] [place] [address] Primary Staff Physician Cardiology 08/19/21 Rahul Knight, RN Research Nurse 09/03/21 Multiple Punch Press Operator Relationship Specialty Start Date End Date Daksha Turner MD [address] [place], [place] 285981 PCP - General Family Practice 07/18/21 Sary Jonas, [facility] Vet Assistant Oncology 08/11/21 Lalo Black MD [address] [place] [address] Primary Staff Physician Cardiology 08/19/21 Rahul Knight, RN Research Nurse 09/03/21 Multiple Punch Press Operator Relationship Specialty Start Date End Date Daksha Turner MD [address] [place], [place] [id number] PCP - General Family Medicine 07/18/21 Sary Jonas, [facility] Vet Assistant Oncology 08/11/21 Lalo Black MD [address] [place] [address] Primary Staff Physician Cardiology 08/19/21 Rahul Knight, RN Research Nurse 09/03/21 Multiple Punch Press Operator Relationship Specialty Start Date End Date Daksha Turner MD [address] [place] [address] PCP - General Family Medicine 07/18/21 Sary Jonas, [facility] Vet Assistant Oncology 08/11/21 Lalo Black MD [address] [place] [address] Primary Staff Physician Cardiology 08/19/21 Rahul Knight, RN Research Nurse 09/03/21 Multiple Punch Press Operator Relationship Specialty Start Date End Date Daksha Turner MD [address] [place], [place] [id number] PCP - General Family Medicine 07/18/21 Sary Jonas, [facility] Vet Assistant Oncology 08/11/21 Lalo Black MD [address] [place] [address] Primary Staff Physician Cardiology 08/19/21 Rahul Knight, RN Research Nurse 09/03/21 Haylee Wilburn MD [address] [place], [place] 5870208 Oncology 12/08/21 Alfredo Xavier MD [address] [facility] [place] [address] Radiation Oncology 12/08/21 Multiple Punch Press Operator Relationship Specialty Start Date End Date Daksha Turner MD [address] [place], [place] [id number] PCP - General Family Medicine 07/18/21 Sary Jonas, [facility] Vet Assistant Oncology 08/11/21 Lalo Black MD [address] [place] [address] Primary Staff Physician Cardiology 08/19/21 Rahul Knight, RN Research Nurse 09/03/21 Haylee Wilburn MD [address] [place] [address] Oncology 12/08/21 Alfredo Xavier MD [address] [facility] [place] [address] Radiation Oncology 12/08/21 Multiple Punch Press Operator Relationship Specialty Start Date End Date Daksha Turner MD [address] [place], [place] [phone] PCP - General Family Medicine 07/18/21 Sary Jonas, [facility] Vet Assistant Oncology 08/11/21 Lalo Black MD [address] [place] [address] Primary Staff Physician Cardiology 08/19/21 Rahul Knight, RN Research Nurse 09/03/21 Haylee Wilburn MD [address] [place] [address] Oncology 12/08/21 Alfredo Xavier MD [address] [place] [address] Radiation Oncology 12/08/21 Multiple Punch Press Operator Relationship Specialty Start Date End Date Daksha Turner MD [address] [facility] [place], [place] [id number] PCP - General Family Medicine 07/18/21 Sary Jonas, [facility] Vet Assistant Oncology 08/11/21 Lalo Black MD [address] [place] [address] Primary Staff Physician Cardiology 08/19/21 Rahul Knight, RN Research Nurse 09/03/21 Haylee Wilburn MD [address] [place] [address] Oncology 12/08/21 [place] [address] [place] [address] Radiation Oncology 12/08/21 Multiple Punch Press Operator Relationship Specialty Start Date End Date Daksha Turner MD [address] [facility] [place] [id number] PCP - General Family Medicine 07/18/21 Sary Jonas, [facility] Vet Assistant Oncology 08/11/21 Lalo Black MD [address] [place] [address] Primary Staff Physician Cardiology 08/19/21 Rahul Knight, RN Research Nurse 09/03/21 Haylee Wilburn MD [address] [place], [place] 9196881 [phone] Oncology 12/08/21 [place] [address] [place] [address] Radiation Oncology 12/08/21 Multiple Punch Press Operator Relationship Specialty Start Date End Date Daksha Turner MD [address] [place], [place] [id number] PCP - General Family Medicine 07/18/21 [facility] Vet Assistant Oncology 08/11/21 Lalo Black MD [address] [place], [place] [phone] Primary Staff Physician Cardiology 08/19/21 Rahul Knight, RN Research Nurse 09/03/21 Haylee Wilburn MD 132[facility] Center[facility] [place], [place] 4346[address] Oncology 12/08/21 [place] [address] [place] [address] Radiation Oncology 12/08/21 Multiple Punch Press Operator Relationship Specialty Start Date End Date Daksha Turner MD [address] [place], [place] [id number] PCP - General Family Medicine 07/18/21 [facility] Vet Assistant Oncology 08/11/21 Lalo Black MD [address] [place], [place] [phone] Primary Staff Physician Cardiology 08/19/21 Rahul Knight, RN Research Nurse 09/03/21 Haylee Wilburn MD [address] [place], [place] 5574408 Oncology 12/08/21 [place] [address] [place] [address] [place] [address] Radiation Oncology 12/08/21 Multiple Punch Press Operator Relationship Specialty Start Date End Date Daksha Turner MD [address] [place] [address] PCP - General Family Medicine 07/18/21 Sary Jonas, [facility] Vet Assistant Oncology 08/11/21 Lalo Black MD [address] [place] [address] Primary Staff Physician Cardiology 08/19/21 Rahul Knight, RN Research Nurse 09/03/21 Haylee Wilburn MD [address] [place], [place] 3860708 Oncology 12/08/21 [place] [address] [place] [address] [place] [address] Radiation Oncology 12/08/21 Multiple Punch Press Operator Relationship Specialty Start Date End Date Daksha Turner MD [address] [place] [address] PCP - General Family Medicine 07/18/21 Sary Jonas, [facility] Vet Assistant Oncology 08/11/21 Lalo Black MD [address] [place] [address] Primary Staff Physician Cardiology 08/19/21 Rahul Knight, RN Research Nurse 09/03/21 Haylee Wilburn MD [address] [place], [place] 7807652 [phone] Oncology 12/08/21 Alfredo Xavier MD [address] [facility] [place] [address] Radiation Oncology 12/08/21 Multiple Punch Press Operator Relationship Specialty Start Date End Date Daksha Turner MD [address] [place], [place] [id number] PCP - General Family Medicine 07/18/21 Sary Jonas, [facility] Vet Assistant Oncology 08/11/21 Lalo Black MD [address] [place] [address] Primary Staff Physician Cardiology 08/19/21 Rahul Knight, RN Research Nurse 09/03/21 Haylee Wilburn MD [address] [place] [address] Oncology 12/08/21 Alfredo Xavier MD [address] [facility] [place] [address] Radiation Oncology 12/08/21 Sayra Tello MD [address] [facility] [place] [address] Cardiology 02/12/22 Multiple Punch Press Operator Relationship Specialty Start Date End Date Daksha Turner MD [address] [place], [place] 672741 PCP - General Family Medicine 07/18/21 Sary Jonas, [facility] Vet Assistant Oncology 08/11/21 Lalo Black MD [address] [place] [address] Primary Staff Physician Cardiology 08/19/21 Rahul Knight, RN Research Nurse 09/03/21 Haylee Wilburn MD [address] [facility] [place], [place] 8207331 [phone] Oncology 12/08/21 Alfredo Xavier MD [address] [facility] [place] [address] Radiation Oncology 12/08/21 Sayra Tello MD [address] [place], [place] 7703308 Cardiology 02/12/22 Multiple Punch Press Operator Relationship Specialty Start Date End Date Daksha Turner MD [address] [place], [place] [id number] PCP - General Family Medicine 07/18/21 Sary Jonas, [facility] Vet Assistant Oncology 08/11/21 Lalo Black MD [address] [place] [address] Primary Staff Physician Cardiology 08/19/21 Rahul Knight, RN Research Nurse 09/03/21 Haylee Wilburn MD [address] [place], [place] 6482115 [phone] Oncology 12/08/21 Alfredo Xavier MD [address] [facility] [place] [address] Radiation Oncology 12/08/21 Sayra Tello MD [address] [place], [place] 7255408 Cardiology 02/12/22 Multiple Punch Press Operator Relationship Specialty Start Date End Date Daksha Turner MD [address] [facility] [place], [place] [phone] PCP - General Family Medicine 07/18/21 Sary Jonas, [facility] Vet Assistant Oncology 08/11/21 Lalo Black MD [address] [place] [address] Primary Staff Physician Cardiology 08/19/21 Rahul Knight, RN Research Nurse 09/03/21 Haylee Wilburn MD [address] [place], [place] 2237765 [phone] Oncology 12/08/21 Alfredo Xavier MD [address] [facility] [place] [address] Radiation Oncology 12/08/21 Sayra Tello MD [address] [place], [place] 6323008 Cardiology 02/12/22 Multiple Punch Press Operator Relationship Specialty Start Date End Date Daksha Turner MD [address] [place] [address] PCP - General Family Medicine 07/18/21 Sary Jonas [facility] Vet Assistant Oncology 08/11/21 Lalo Black MD [address] [place] [address] Primary Staff Physician Cardiology 08/19/21 Rahul Knight, RN Research Nurse 09/03/21 Haylee Wilburn MD [address] [place], [place] [phone] Oncology 12/08/21 Alfredo Xavier MD [address] [place] [address] Radiation Oncology 12/08/21 Sayra Tello MD [address] [place] [address] Cardiology 02/12/22 Multiple Punch Press Operator Relationship Specialty Start Date End Date Daksha Turner MD [address] [place] [address] PCP - General Family Medicine 07/18/21 Sary Jonas, [facility] Vet Assistant Oncology 08/11/21 Lalo Black MD [address] [place] [address] Primary Staff Physician Cardiology 08/19/21 Rahul Knight, RN Research Nurse 09/03/21 Haylee Wilburn MD [address] [place] [address] Oncology 12/08/21 Alfredo Xavier MD [address] [facility] [place] [address] Radiation Oncology 12/08/21 Sayra Tello MD [address] [facility] [address] [place], [place] [id number] Cardiology 02/12/22 Multiple Punch Press Operator Relationship Specialty Start Date End Date Daksha Turner MD [address] [place] [address] PCP - General Family Medicine 07/18/21 Sary Jonas, [facility] Vet Assistant Oncology 08/11/21 Lalo Black MD [address] [place] [address] Primary Staff Physician Cardiology 08/19/21 Rahul Knight, RN Research Nurse 09/03/21 Haylee Wilburn MD [address] [place], [place] [id number] Oncology 12/08/21 Alfredo Xavier MD [address] [facility] [place] [phone] Radiation Oncology 12/08/21 Sayra Tello MD [address] [place] [address] Cardiology 02/12/22 Multiple Punch Press Operator Relationship Specialty Start Date End Date Daksha Turner MD [address], [place] [id number] PCP - General Family Medicine 07/18/21 Sary Jonas, [facility] Vet Assistant Oncology 08/11/21 Lalo Black MD [address] [place] [address] Primary Staff Physician Cardiology 08/19/21 Rahul Knight, RN Research Nurse 09/03/21 Haylee Wilburn MD [address] [place] [address] Oncology 12/08/21 Alfredo Xavier MD [address] [facility] [place] [address] Radiation Oncology 12/08/21 Sayra Tello MD [address] [place] [address] Cardiology 02/12/22 Multiple Punch Press Operator Relationship Specialty Start Date End Date Daksha Turner MD [address] [place] [address] PCP - General Family Medicine 07/18/21 Sary Jonas, [facility] Vet Assistant Oncology 08/11/21 Lalo Black MD [address] [place], [place] [id number] Primary Staff Physician Cardiology 08/19/21 Rahul Knight, RN Research Nurse 09/03/21 Haylee Wilburn MD [address] [place] [address] Oncology 12/08/21 Alfredo Xavier MD [address] [facility] [place] [address] Radiation Oncology 12/08/21 Sayra Tello MD [address] [place] [address] Cardiology 02/12/22 Multiple Punch Press Operator Relationship Specialty Start Date End Date Daksha Turner MD [address] [facility] [place], [place] [id number] PCP - General Family Medicine 07/18/21 Sary Jonas, [facility] Vet Assistant Oncology 08/11/21 Lalo Black MD [address] [place], [place] [id number] Primary Staff Physician Cardiology 08/19/21 Rahul Knight, RN Research Nurse 09/03/21 Haylee Wilburn MD [address] [facility] [place] [place], [place] [phone] Oncology 12/08/21 Alfredo Xavier MD [address] [place] [address] Radiation Oncology 12/08/21 Sayra Tello MD [address] [place] [address] Cardiology 02/12/22 Multiple Punch Press Operator Relationship Specialty Start Date End Date Daksha Turner MD [address] [place], [place] [id number] PCP - General Family Medicine 07/18/21 Sary Jonas, [facility] Vet Assistant Oncology 08/11/21 Lalo Black MD [address] [place] [address] Primary Staff Physician Cardiology 08/19/21 Rahul Knight, RN Research Nurse 09/03/21 Haylee Wilburn MD [address] [place], [place] [phone] Oncology 12/08/21 Alfredo Xavier MD [address] [place] [address] Radiation Oncology 12/08/21 Sayra Tello MD [address] [place] [address] Cardiology 02/12/22 Multiple Punch Press Operator Relationship Specialty Start Date End Date Daksha Turner MD [address], [place] [id number] PCP - General Family Medicine 07/18/21 Sary Jonas LSW Vet Assistant Oncology 08/11/21 Lalo Black MD [address] [place] [address] Primary Staff Physician Cardiology 08/19/21 Rahul Knight, RN Research Nurse 09/03/21 Haylee Wilburn MD [address] [place], [place] [phone] Oncology 12/08/21 Alfredo Xavier MD [address] [place] [address] Radiation Oncology 12/08/21 Sayra Tello MD [address] [place] [address] Cardiology 02/12/22 Multiple Punch Press Operator Relationship Specialty Start Date End Date Daksha Turner MD [address] [place] [address] PCP - General Family Medicine 07/18/21 Sary Jonas LSW Vet Assistant Oncology 08/11/21 Lalo Black MD [address] [place] [address] Primary Staff Physician Cardiology 08/19/21 Rahul Knight, RN Research Nurse 09/03/21 Haylee Wilburn MD [address] [place] [address] Oncology 12/08/21 Alfredo Xavier MD [address] [facility] [place] [phone] Radiation Oncology 12/08/21 Sayra Tello MD [address] [place] [address] Cardiology 02/12/22 Team Status: Active [...] DO Attending Provider, Referring Palmer burton Active Multiple Punch Press Operator Relationship Specialty Start Date End Date Daksha Turner MD [address] [place] [address] PCP - General Family Medicine 07/18/21 Sary Jonas [facility] Vet Assistant Oncology 08/11/21 Lalo Black MD [address] [place] [address] Primary Staff Physician Cardiology 08/19/21 Rahul Knight, RN Research Nurse 09/03/21 Haylee Wilburn MD [address] [place] [address] Oncology 12/08/21 Alfredo Xavier MD [address] [place] [phone] Radiation Oncology 12/08/21 Multiple Punch Press Operator Relationship Specialty Start Date End Date Daksha Turner MD [address] [place] [address] PCP - General Family Medicine 07/18/21 Sary Jonas [facility] Vet Assistant Oncology 08/11/21 Lalo Black MD [address] [place] [address] Primary Staff Physician Cardiology 08/19/21 Rahul Knight, RN Research Nurse 09/03/21 Haylee Wilburn MD [address] [place] [address] Oncology 12/08/21 Alfredo Xavier MD [address] [facility] [place] [address] Radiation Oncology 12/08/21 Sayra Tello MD [address], [address] [place] [address] Cardiology 02/12/22 Team Status: Active Member Role [...] 2024 End: August 14, 2024 Gini Couch ART GALLERY DIRECTOR, ART GALLERY DIRECTOR-C Attending Provider Active Start: August 14, 2024 End: August 14, 2024 Team Status: Inactive Member Role Status Dates Dr. Daksha Turner MD Primary Care Provider Acti ve Start: August 14, 2024 End: August 14, 2024 Gini Couch ART GALLERY DIRECTOR, ART GALLERY DIRECTOR-C Attending Provider Active Start: August 14, 2024 End: August 14, 2024 Gini Couch ART GALLERY DIRECTOR, ART GALLERY DIRECTOR-C Referring Provider Active Start: August 14, 2024 [...] End: August 14, 2024 Gini Couch NP, ART GALLERY DIRECTOR-C Attending Provider Active Start: August 14, 2024 End: August 14, 2024 Team Status: Inactive Member Role/Relationship Status Dates Dr. Daksha Turner MD Primary Care Provider Acti ve Start: August 14, 2024 End: August 14, 2024 Gini Couch NP, ART GALLERY DIRECTOR-C Attending Provider Active Start: August 14, 2024 End: August 14, 2024 Giin Couch ART GALLERY DIRECTOR, ART GALLERY DIRECTOR-C Referring Provider Active Start: August 14, 2024 [...] ve Start: September 25, 2024 Gini Couch ART GALLERY DIRECTOR, ART GALLERY DIRECTOR-C Attending Provider Active Start: September 25, 2024 Gini Couch ART GALLERY DIRECTOR, ART GALLERY DIRECTOR-C Referring Provider Active Start: September 25, 2024 [...] ve Start: September 25, 2024 Gini Couch ART GALLERY DIRECTOR, ART GALLERY DIRECTOR-C Referring Provider Active Start: September 25, 2024 Gini Couch ART GALLERY DIRECTOR, ART GALLERY DIRECTOR-C Other Provider Active Sta rt: September 25, 2024 Dr. Moises Gaona MD Attending Provider Active S tart: September 25, 2024 Team Status: Active Member Role/Relationship Status Dates Dr. Daksha Turner MD Primary Care Provider Acti ve Start: September 26, 2024 Gini Couch ART GALLERY DIRECTOR, ART GALLERY DIRECTOR-C Attending Provider Active Start: September 26, 2024 Team Status: Active Member Role/Relationship Status Dates Dr. Daksha Turner MD Primary Care Provider Acti ve Start: September 26, 2024 Gini Couch ART GALLERY DIRECTOR, ART GALLERY DIRECTOR-C Attending Provider Active Start: September 26, 2024 Team Status: Inactive Member Role/Relationship Status Dates Dr. Daksha Turner MD Primary Care Provider Acti ve Start: September 25, 2024 End: September 25, 2024 Gini Couch ART GALLERY DIRECTOR, ART GALLERY DIRECTOR-C Attending Provider Active Start: September 25, 2024 End: September 25, 2024 Gini Couch ART GALLERY DIRECTOR, ART GALLERY DIRECTOR-C Referring Provider Active Start: September 25, 2024 End: September 25, 2024 Team Status: Inactive Member Role/Relationship Status Dates Dr. Daksha Turner MD Primary Care Provider Acti ve Start: October 02, 2024 End: October 02, 2024 Dr. Daksha Turner MD Referring Provider Active Start: October 02, 2024 End: October 02, 2024 Gini Couch ART GALLERY DIRECTOR, ART GALLERY DIRECTOR-C Attending Provider Active Start: October 02, 2024 [...] 2024 End: August 14, 2024 Gini Couch ART GALLERY DIRECTOR, ART GALLERY DIRECTOR-C Attending Provider Active Start: August 14, 2024 End: August 14, 2024 Team Status: Inactive Member Role/Relationship Status Dates Dr. Daksha Turner MD Primary Care Provider Acti ve Start: August 14, 2024 End: August 14, 2024 Gini Couch ART GALLERY DIRECTOR, ART GALLERY DIRECTOR-C Attending Provider Active Start: August 14, 2024 End: August 14, 2024 Gini Couch ART GALLERY DIRECTOR, ART GALLERY DIRECTOR-C Referring Provider Active Start: August 14, 2024 [...] 2024 End: September 25, 2024 Gini Couch ART GALLERY DIRECTOR, ART GALLERY DIRECTOR-C Attending Provider Active Start: September 25, 2024 End: September 25, 2024 Gini Couch ART GALLERY DIRECTOR, ART GALLERY DIRECTOR-C Referring Provider Active Start: September 25, 2024 [...] ve Start: September 25, 2024 Gini Couch ART GALLERY DIRECTOR, ART GALLERY DIRECTOR-C Referring Provider Active Start: September 25, 2024 Gini Couch NP, ART GALLERY DIRECTOR-C Other Provider Active Sta rt: September 25, 2024 Dr. Moises Gaona MD Attending Provider Active S tart: September 25, 2024 Team Status: Active Member Role/Relationship Status Dates Dr. Daksha Turner MD Primary Care Provider Acti ve Start: September 26, 2024 Gini Couch ART GALLERY DIRECTOR, ART GALLERY DIRECTOR-C Attending Provider Active Start: September 26, 2024 Team Status: Inactive Member Role/Relationship Status Dates Dr. Daksha Turner MD Primary Care Provider Acti ve Start: October 02, 2024 End: October 02, 2024 Dr. Daksha Turner MD Referring Provider Active Start: October 02, 2024 End: October 02, 2024 Gini Couch ART GALLERY DIRECTOR, ART GALLERY DIRECTOR-C Attending Provider Active Start: October 02, 2024 End: October 02, 2024 Team Status: Inactive Member Role/Relationship Status Dates Dr. Daksha Turner MD Primary Care Provider Acti ve Start: October 02, 2024 End: October 02, 2024 Gini Couch ART GALLERY DIRECTOR, ART GALLERY DIRECTOR-C Attending Provider Active Start: October 02, 2024 End: October 02, 2024 Gini Couch ART GALLERY DIRECTOR, ART GALLERY DIRECTOR-C Referring Provider Active Start: October 02, 2024 [...] or prosecute any alcohol or drug abuse patient.[facility] TownshipIn the event this information is protected by the Federal Confidentiality of Alcohol and Drug Abuse Patient Records regulations: The Federal rules restrict any use of the information to criminally investigate or prosecute any alcohol or drug abuse patient.[facility] TownshipIn the event this information is protected by the Federal Confidentiality of Alcohol and Drug Abuse Patient Records regulations: The Federal rules restrict any use of the information to criminally investigate or prosecute any alcohol or drug abuse patient.[facility] TownshipIn the event this information is protected by the Federal Confidentiality of Alcohol and Drug Abuse Patient Records regulations: The Federal rules restrict any use of the information to criminally investigate or prosecute any alcohol or drug abuse patient.[facility] TownshipIn the event this information is protected by the Federal Confidentiality of Alcohol and Drug Abuse Patient Records regulations: The Federal rules restrict any use of the information to criminally investigate or prosecute any alcohol or drug abuse patient.[facility] TownshipIn the event this information is protected by the Federal Confidentiality of Alcohol and Drug Abuse Patient Records regulations: The Federal rules restrict any use of the information to criminally investigate or prosecute any alcohol or drug abuse patient.[facility] TownshipIn the event this information is protected by the Federal Confidentiality of Alcohol and Drug Abuse Patient Records regulations: The Federal rules restrict any use of the information to criminally investigate or prosecute any alcohol or drug abuse patient.[facility] TownshipIn the event this information is protected by the Federal Confidentiality of Alcohol and Drug Abuse Patient Records regulations: The Federal rules restrict any use of the information to criminally investigate or prosecute any alcohol or drug abuse patient.[facility] TownshipIn the event this information is protected by the Federal Confidentiality of Alcohol and Drug Abuse Patient Records regulations: The Federal rules restrict any use of the information to criminally investigate or prosecute any alcohol or drug abuse patient.[facility] TownshipIn the event this information is protected by the Federal Confidentiality of Alcohol and Drug Abuse Patient Records regulations: The Federal rules restrict any use of the information to criminally investigate or prosecute any alcohol or drug abuse patient.[facility] TownshipIn the event this information is protected by the Federal Confidentiality of Alcohol and Drug Abuse Patient Records regulations: The Federal rules restrict any use of the information to criminally investigate or prosecute any alcohol or drug abuse patient.[facility] TownshipIn the event this information is protected by the Federal Confidentiality of Alcohol and Drug Abuse Patient Records regulations: The Federal rules restrict any use of the information to criminally investigate or prosecute any alcohol or drug abuse patient.[facility] TownshipIn the event this information is protected by the Federal Confidentiality of Alcohol and Drug Abuse Patient Records regulations: The Federal rules restrict any use of the information to criminally investigate or prosecute any alcohol or drug abuse patient.[facility] TownshipIn the event this information is protected by the Federal Confidentiality of Alcohol and Drug Abuse Patient Records regulations: The Federal rules restrict any use of the information to criminally investigate or prosecute any alcohol or drug abuse patient.[facility] TownshipIn the event this information is protected by the Federal Confidentiality of Alcohol and Drug Abuse Patient Records regulations: The Federal rules restrict any use of the information to criminally investigate or prosecute any alcohol or drug abuse patient.[facility] TownshipIn the event this information is protected by the Federal Confidentiality of Alcohol and Drug Abuse Patient Records regulations: The Federal rules restrict any use of the information to criminally investigate or prosecute any alcohol or drug abuse patient.[facility] TownshipIn the event this information is protected by the Federal Confidentiality of Alcohol and Drug Abuse Patient Records regulations: The Federal rules restrict any use of the information to criminally investigate or prosecute any alcohol or drug abuse patient.[facility] TownshipIn the event this information is protected by the Federal Confidentiality of Alcohol and Drug Abuse Patient Records regulations: The Federal rules restrict any use of the information to criminally investigate or prosecute any alcohol or drug abuse patient.[facility] TownshipIn the event this information is protected by the Federal Confidentiality of Alcohol and Drug Abuse Patient Records regulations: The Federal rules restrict any use of the information to criminally investigate or prosecute any alcohol or drug abuse patient.[facility] TownshipIn the event this information is protected by the Federal Confidentiality of Alcohol and Drug Abuse Patient Records regulations: The Federal rules restrict any use of the information to criminally investigate or prosecute any alcohol or drug abuse patient.[facility] TownshipIn the event this information is protected by the Federal Confidentiality of Alcohol and Drug Abuse Patient Records regulations: The Federal rules restrict any use of the information to criminally investigate or prosecute any alcohol or drug abuse patient.[facility] TownshipIn the event this information is protected by the Federal Confidentiality of Alcohol and Drug Abuse Patient Records regulations: The Federal rules restrict any use of the information to criminally investigate or prosecute any alcohol or drug abuse patient.[facility] TownshipIn the event this information is protected by the Federal Confidentiality of Alcohol and Drug Abuse Patient Records regulations: The Federal rules restrict any use of the information to criminally investigate or prosecute any alcohol or drug abuse patient.[facility] TownshipIn the event this information is protected by the Federal Confidentiality of Alcohol and Drug Abuse Patient Records regulations: The Federal rules restrict any use of the information to criminally investigate or prosecute any alcohol or drug abuse patient.[facility] TownshipIn the event this information is protected by the Federal Confidentiality of Alcohol and Drug Abuse Patient Records regulations: The Federal rules restrict any use of the information to criminally investigate or prosecute any alcohol or drug abuse patient.[facility] TownshipIn the event this information is protected by the Federal Confidentiality of Alcohol and Drug Abuse Patient Records regulations: The Federal rules restrict any use of the information to criminally investigate or prosecute any alcohol or drug abuse patient.[facility] TownshipIn the event this information is protected by the Federal Confidentiality of Alcohol and Drug Abuse Patient Records regulations: The Federal rules restrict any use of the information to criminally investigate or prosecute any alcohol or drug abuse patient.[facility] TownshipIn the event this information is protected by the Federal Confidentiality of Alcohol and Drug Abuse Patient Records regulations: The Federal rules restrict any use of the information to criminally investigate or prosecute any alcohol or drug abuse patient.[facility] TownshipIn the event this information is protected by the Federal Confidentiality of Alcohol and Drug Abuse Patient Records regulations: The Federal rules restrict any use of the information to criminally investigate or prosecute any alcohol or drug abuse patient.[facility] TownshipIn the event this information is protected by the Federal Confidentiality of Alcohol and Drug Abuse Patient Records regulations: The Federal rules restrict any use of the information to criminally investigate or prosecute any alcohol or drug abuse patient.[facility] TownshipIn the event this information is protected by the Federal Confidentiality of Alcohol and Drug Abuse Patient Records regulations: The Federal rules restrict any use of the information to criminally investigate or prosecute any alcohol or drug abuse patient.[facility] TownshipIn the event this information is protected by the Federal Confidentiality of Alcohol and Drug Abuse Patient Records regulations: The Federal rules restrict any use of the information to criminally investigate or prosecute any alcohol or drug abuse patient.[facility] TownshipIn the event this information is protected by the Federal Confidentiality of Alcohol and Drug Abuse Patient Records regulations: The Federal rules restrict any use of the information to criminally investigate or prosecute any alcohol or drug abuse patient.[facility] TownshipIn the event this information is protected by the Federal Confidentiality of Alcohol and Drug Abuse Patient Records regulations: The Federal rules restrict any use of the information to criminally investigate or prosecute any alcohol or drug abuse patient.[facility] TownshipIn the event this information is protected by the Federal Confidentiality of Alcohol and Drug Abuse Patient Records regulations: The Federal rules restrict any use of the information to criminally investigate or prosecute any alcohol or drug abuse patient.[facility] TownshipIn the event this information is protected by the Federal Confidentiality of Alcohol and Drug Abuse Patient Records regulations: The Federal rules restrict any use of the information to criminally investigate or prosecute any alcohol or drug abuse patient.[facility] TownshipIn the event this information is protected by the Federal Confidentiality of Alcohol and Drug Abuse Patient Records regulations: The Federal rules restrict any use of the information to criminally investigate or prosecute any alcohol or drug abuse patient.[facility] TownshipIn the event this information is protected by the Federal Confidentiality of Alcohol and Drug Abuse Patient Records regulations: The Federal rules restrict any use of the information to criminally investigate or prosecute any alcohol or drug abuse patient.[facility] TownshipIn the event this information is protected by the Federal Confidentiality of Alcohol and Drug Abuse Patient Records regulations: The Federal rules restrict any use of the information to criminally investigate or prosecute any alcohol or drug abuse patient.[facility] TownshipIn the event this information is protected by the Federal Confidentiality of Alcohol and Drug Abuse Patient Records regulations: The Federal rules restrict any use of the information to criminally investigate or prosecute any alcohol or drug abuse patient.[facility] TownshipIn the event this information is protected by the Federal Confidentiality of Alcohol and Drug Abuse Patient Records regulations: The Federal rules restrict any use of the information to criminally investigate or prosecute any alcohol or drug abuse patient.[facility] TownshipIn the event this information is protected by the Federal Confidentiality of Alcohol and Drug Abuse Patient Records regulations: The Federal rules restrict any use of the information to criminally investigate or prosecute any alcohol or drug abuse patient.[facility] TownshipIn the event this information is protected by the Federal Confidentiality of Alcohol and Drug Abuse Patient Records regulations: The Federal rules restrict any use of the information to criminally investigate or prosecute any alcohol or drug abuse patient.[facility] TownshipIn the event this information is protected by the Federal Confidentiality of Alcohol and Drug Abuse Patient Records regulations: The Federal rules restrict any use of the information to criminally investigate or prosecute any alcohol or drug abuse patient.[facility] TownshipIn the event this information is protected by the Federal Confidentiality of Alcohol and Drug Abuse Patient Records regulations: The Federal rules restrict any use of the information to criminally investigate or prosecute any alcohol or drug abuse patient.[facility] TownshipIn the event this information is protected by the Federal Confidentiality of Alcohol and Drug Abuse Patient Records regulations: The Federal rules restrict any use of the information to criminally investigate or prosecute any alcohol or drug abuse patient.[facility] TownshipIn the event this information is protected by the Federal Confidentiality of Alcohol and Drug Abuse Patient Records regulations: The Federal rules restrict any use of the information to criminally investigate or prosecute any alcohol or drug abuse patient.[facility] TownshipIn the event this information is protected by the Federal Confidentiality of Alcohol and Drug Abuse Patient Records regulations: The Federal rules restrict any use of the information to criminally investigate or prosecute any alcohol or drug abuse patient.[facility] TownshipIn the event this information is protected by the Federal Confidentiality of Alcohol and Drug Abuse Patient Records regulations: The Federal rules restrict any use of the information to criminally investigate or prosecute any alcohol or drug abuse patient.[facility] TownshipIn the event this information is protected by the Federal Confidentiality of Alcohol and Drug Abuse Patient Records regulations: The Federal rules restrict any use of the information to criminally investigate or prosecute any alcohol or drug abuse patient.[facility] TownshipIn the event this information is protected by the Federal Confidentiality of Alcohol and Drug Abuse Patient Records regulations: The Federal rules restrict any use of the information to criminally investigate or prosecute any alcohol or drug abuse patient.[facility] TownshipIn the event this information is protected by the Federal Confidentiality of Alcohol and Drug Abuse Patient Records regulations: The Federal rules restrict any use of the information to criminally investigate or prosecute any alcohol or drug abuse patient.[facility] TownshipIn the event this information is protected by the Federal Confidentiality of Alcohol and Drug Abuse Patient Records regulations: The Federal rules restrict any use of the information to criminally investigate or prosecute any alcohol or drug abuse patient.[facility] TownshipIn the event this information is protected by the Federal Confidentiality of Alcohol and Drug Abuse Patient Records regulations: The Federal rules restrict any use of the information to criminally investigate or prosecute any alcohol or drug abuse patient.[facility] TownshipIn the event this information is protected by the Federal Confidentiality of Alcohol and Drug Abuse Patient Records regulations: The Federal rules restrict any use of the information to criminally investigate or prosecute any alcohol or drug abuse patient.[facility] TownshipIn the event this information is protected by the Federal Confidentiality of Alcohol and Drug Abuse Patient Records regulations: The Federal rules restrict any use of the information to criminally investigate or prosecute any alcohol or drug abuse patient.[facility] TownshipIn the event this information is protected by the Federal Confidentiality of Alcohol and Drug Abuse Patient Records regulations: The Federal rules restrict any use of the information to criminally investigate or prosecute any alcohol or drug abuse patient.[facility] TownshipIn the event this information is protected by the Federal Confidentiality of Alcohol and Drug Abuse Patient Records regulations: The Federal rules restrict any use of the information to criminally investigate or prosecute any alcohol or drug abuse patient.[facility] TownshipIn the event this information is protected by the Federal Confidentiality of Alcohol and Drug Abuse Patient Records regulations: The Federal rules restrict any use of the information to criminally investigate or prosecute any alcohol or drug abuse patient.[facility] TownshipIn the event this information is protected by the Federal Confidentiality of Alcohol and Drug Abuse Patient Records regulations: The Federal rules restrict any use of the information to criminally investigate or prosecute any alcohol or drug abuse patient.[facility] TownshipIn the event this information is protected by the Federal Confidentiality of Alcohol and Drug Abuse Patient Records regulations: The Federal rules restrict any use of the information to criminally investigate or prosecute any alcohol or drug abuse patient.[facility] TownshipIn the event this information is protected by the Federal Confidentiality of Alcohol and Drug Abuse Patient Records regulations: The Federal rules restrict any use of the information to criminally investigate or prosecute any alcohol or drug abuse patient.[facility] TownshipIn the event this information is protected by the Federal Confidentiality of Alcohol and Drug Abuse Patient Records regulations: The Federal rules restrict any use of the information to criminally investigate or prosecute any alcohol or drug abuse patient.[facility] TownshipIn the event this information is protected by the Federal Confidentiality of Alcohol and Drug Abuse Patient Records regulations: The Federal rules restrict any use of the information to criminally investigate or prosecute any alcohol or drug abuse patient.[facility] TownshipIn the event this information is protected by the Federal Confidentiality of Alcohol and Drug Abuse Patient Records regulations: The Federal rules restrict any use of the information to criminally investigate or prosecute any alcohol or drug abuse patient.[facility] TownshipIn the event this information is protected by the Federal Confidentiality of Alcohol and Drug Abuse Patient Records regulations: The Federal rules restrict any use of the information to criminally investigate or prosecute any alcohol or drug abuse patient.[facility] TownshipIn the event this information is protected by the Federal Confidentiality of Alcohol and Drug Abuse Patient Records regulations: The Federal rules restrict any use of the information to criminally investigate or prosecute any alcohol or drug abuse patient.[facility] TownshipIn the event this information is protected by the Federal Confidentiality of Alcohol and Drug Abuse Patient Records regulations: The Federal rules restrict any use of the information to criminally investigate or prosecute any alcohol or drug abuse patient.[facility] TownshipIn the event this information is protected by the Federal Confidentiality of Alcohol and Drug Abuse Patient Records regulations: The Federal rules restrict any use of the information to criminally investigate or prosecute any alcohol or drug abuse patient.[facility] TownshipIn the event this information is protected by the Federal Confidentiality of Alcohol and Drug Abuse Patient Records regulations: The Federal rules restrict any use of the information to criminally investigate or prosecute any alcohol or drug abuse patient.[facility] TownshipIn the event this information is protected by the Federal Confidentiality of Alcohol and Drug Abuse Patient Records regulations: The Federal rules restrict any use of the information to criminally investigate or prosecute any alcohol or drug abuse patient.[facility] TownshipIn the event this information is protected by the Federal Confidentiality of Alcohol and Drug Abuse Patient Records regulations: The Federal rules restrict any use of the information to criminally investigate or prosecute any alcohol or drug abuse patient.[facility] TownshipIn the event this information is protected by the Federal Confidentiality of Alcohol and Drug Abuse Patient Records regulations: The Federal rules restrict any use of the information to criminally investigate or prosecute any alcohol or drug abuse patient.[facility] TownshipIn the event this information is protected by the Federal Confidentiality of Alcohol and Drug Abuse Patient Records regulations: The Federal rules restrict any use of the information to criminally investigate or prosecute any alcohol or drug abuse patient.[facility] TownshipIn the event this information is protected by the Federal Confidentiality of Alcohol and Drug Abuse Patient Records regulations: The Federal rules restrict any use of the information to criminally investigate or prosecute any alcohol or drug abuse patient.[facility] TownshipIn the event this information is protected by the Federal Confidentiality of Alcohol and Drug Abuse Patient Records regulations: The Federal rules restrict any use of the information to criminally investigate or prosecute any alcohol or drug abuse patient.[facility] TownshipIn the event this information is protected by the Federal Confidentiality of Alcohol and Drug Abuse Patient Records regulations: The Federal rules restrict any use of the information to criminally investigate or prosecute any alcohol or drug abuse patient.[facility] TownshipIn the event this information is protected by the Federal Confidentiality of Alcohol and Drug Abuse Patient Records regulations: The Federal rules restrict any use of the information to criminally investigate or prosecute any alcohol or drug abuse patient.[facility] TownshipIn the event this information is protected by the Federal Confidentiality of Alcohol and Drug Abuse Patient Records regulations: The Federal rules restrict any use of the information to criminally investigate or prosecute any alcohol or drug abuse patient.[facility] TownshipIn the event this information is protected by the Federal Confidentiality of Alcohol and Drug Abuse Patient Records regulations: The Federal rules restrict any use of the information to criminally investigate or prosecute any alcohol or drug abuse patient.[facility] TownshipIn the event this information is protected by the Federal Confidentiality of Alcohol and Drug Abuse Patient Records regulations: The Federal rules restrict any use of the information to criminally investigate or prosecute any alcohol or drug abuse patient.[facility] TownshipIn the event this information is protected by the Federal Confidentiality of Alcohol and Drug Abuse Patient Records regulations: The Federal rules restrict any use of the information to criminally investigate or prosecute any alcohol or drug abuse patient.[facility] TownshipIn the event this information is protected by the Federal Confidentiality of Alcohol and Drug Abuse Patient Records regulations: The Federal rules restrict any use of the information to criminally investigate or prosecute any alcohol or drug abuse patient.[facility] TownshipIn the event this information is protected by the Federal Confidentiality of Alcohol and Drug Abuse Patient Records regulations: The Federal rules restrict any use of the information to criminally investigate or prosecute any alcohol or drug abuse patient.[facility] TownshipIn the event this information is protected by the Federal Confidentiality of Alcohol and Drug Abuse Patient Records regulations: The Federal rules restrict any use of the information to criminally investigate or prosecute any alcohol or drug abuse patient.[facility] TownshipIn the event this information is protected by the Federal Confidentiality of Alcohol and Drug Abuse Patient Records regulations: The Federal rules restrict any use of the information to criminally investigate or prosecute any alcohol or drug abuse patient.[facility] TownshipIn the event this information is protected by the Federal Confidentiality of Alcohol and Drug Abuse Patient Records regulations: The Federal rules restrict any use of the information to criminally investigate or prosecute any alcohol or drug abuse patient.[facility] TownshipIn the event this information is protected by the Federal Confidentiality of Alcohol and Drug Abuse Patient Records regulations: The Federal rules restrict any use of the information to criminally investigate or prosecute any alcohol or drug abuse patient.[facility] TownshipIn the event this information is protected by the Federal Confidentiality of Alcohol and Drug Abuse Patient Records regulations: The Federal rules restrict any use of the information to criminally investigate or prosecute any alcohol or drug abuse patient.[facility] TownshipIn the event this information is protected by the Federal Confidentiality of Alcohol and Drug Abuse Patient Records regulations: The Federal rules restrict any use of the information to criminally investigate or prosecute any alcohol or drug abuse patient.[facility] TownshipIn the event this information is protected by the Federal Confidentiality of Alcohol and Drug Abuse Patient Records regulations: The Federal rules restrict any use of the information to criminally investigate or prosecute any alcohol or drug abuse patient.[facility] TownshipIn the event this information is protected by the Federal Confidentiality of Alcohol and Drug Abuse Patient Records regulations: The Federal rules restrict any use of the information to criminally investigate or prosecute any alcohol or drug abuse patient.[facility] TownshipIn the event this information is protected by the Federal Confidentiality of Alcohol and Drug Abuse Patient Records regulations: The Federal rules restrict any use of the information to criminally investigate or prosecute any alcohol or drug abuse patient.[facility] TownshipIn the event this information is protected by the Federal Confidentiality of Alcohol and Drug Abuse Patient Records regulations: The Federal rules restrict any use of the information to criminally investigate or prosecute any alcohol or drug abuse patient.[facility] TownshipIn the event this information is protected by the Federal Confidentiality of Alcohol and Drug Abuse Patient Records regulations: The Federal rules restrict any use of the information to criminally investigate or prosecute any alcohol or drug abuse patient.[facility] TownshipIn the event this information is protected by the Federal Confidentiality of Alcohol and Drug Abuse Patient Records regulations: The Federal rules restrict any use of the information to criminally investigate or prosecute any alcohol or drug abuse patient.[facility] TownshipIn the event this information is protected by the Federal Confidentiality of Alcohol and Drug Abuse Patient Records regulations: The Federal rules restrict any use of the information to criminally investigate or prosecute any alcohol or drug abuse patient.[facility] TownshipIn the event this information is protected by the Federal Confidentiality of Alcohol and Drug Abuse Patient Records regulations: The Federal rules restrict any use of the information to criminally investigate or prosecute any alcohol or drug abuse patient.[facility] TownshipIn the event this information is protected by the Federal Confidentiality of Alcohol and Drug Abuse Patient Records regulations: The Federal rules restrict any use of the information to criminally investigate or prosecute any alcohol or drug abuse patient.[facility] TownshipIn the event this information is protected by the Federal Confidentiality of Alcohol and Drug Abuse Patient Records regulations: The Federal rules restrict any use of the information to criminally investigate or prosecute any alcohol or drug abuse patient.[facility] TownshipIn the event this information is protected by the Federal Confidentiality of Alcohol and Drug Abuse Patient Records regulations: The Federal rules restrict any use of the information to criminally investigate or prosecute any alcohol or drug abuse patient.[facility] TownshipIn the event this information is protected by the Federal Confidentiality of Alcohol and Drug Abuse Patient Records regulations: The Federal rules restrict any use of the information to criminally investigate or prosecute any alcohol or drug abuse patient.[facility] TownshipIn the event this information is protected by the Federal Confidentiality of Alcohol and Drug Abuse Patient Records regulations: The Federal rules restrict any use of the information to criminally investigate or prosecute any alcohol or drug abuse patient.[facility] TownshipIn the event this information is protected by the Federal Confidentiality of Alcohol and Drug Abuse Patient Records regulations: The Federal rules restrict any use of the information to criminally investigate or prosecute any alcohol or drug abuse patient.[facility] TownshipIn the event this information is protected by the Federal Confidentiality of Alcohol and Drug Abuse Patient Records regulations: The Federal rules restrict any use of the information to criminally investigate or prosecute any alcohol or drug abuse patient.[facility] TownshipIn the event this information is protected by the Federal Confidentiality of Alcohol and Drug Abuse Patient Records regulations: The Federal rules restrict any use of the information to criminally investigate or prosecute any alcohol or drug abuse patient.[facility] TownshipIn the event this information is protected by the Federal Confidentiality of Alcohol and Drug Abuse Patient Records regulations: The Federal rules restrict any use of the information to criminally investigate or prosecute any alcohol or drug abuse patient.[facility] TownshipIn the event this information is protected by the Federal Confidentiality of Alcohol and Drug Abuse Patient Records regulations: The Federal rules restrict any use of the information to criminally investigate or prosecute any alcohol or drug abuse patient.[facility] TownshipIn the event this information is protected by the Federal Confidentiality of Alcohol and Drug Abuse Patient Records regulations: The Federal rules restrict any use of the information to criminally investigate or prosecute any alcohol or drug abuse patient.[facility] TownshipIn the event this information is protected by the Federal Confidentiality of Alcohol and Drug Abuse Patient Records regulations: The Federal rules restrict any use of the information to criminally investigate or prosecute any alcohol or drug abuse patient.[facility] TownshipIn the event this information is protected by the Federal Confidentiality of Alcohol and Drug Abuse Patient Records regulations: The Federal rules restrict any use of the information to criminally investigate or prosecute any alcohol or drug abuse patient.[facility] TownshipIn the event this information is protected by the Federal Confidentiality of Alcohol and Drug Abuse Patient Records regulations: The Federal rules restrict any use of the information to criminally investigate or prosecute any alcohol or drug abuse patient.[facility] TownshipIn the event this information is protected by the Federal Confidentiality of Alcohol and Drug Abuse Patient Records regulations: The Federal rules restrict any use of the information to criminally investigate or prosecute any alcohol or drug abuse patient.[facility] TownshipIn the event this information is protected by the Federal Confidentiality of Alcohol and Drug Abuse Patient Records regulations: The Federal rules restrict any use of the information to criminally investigate or prosecute any alcohol or drug abuse patient.[facility] TownshipIn the event this information is protected by the Federal Confidentiality of Alcohol and Drug Abuse Patient Records regulations: The Federal rules restrict any use of the information to criminally investigate or prosecute any alcohol or drug abuse patient.[facility] TownshipIn the event this information is protected by the Federal Confidentiality of Alcohol and Drug Abuse Patient Records regulations: The Federal rules restrict any use of the information to criminally investigate or prosecute any alcohol or drug abuse patient.[facility] TownshipIn the event this information is protected by the Federal Confidentiality of Alcohol and Drug Abuse Patient Records regulations: The Federal rules restrict any use of the information to criminally investigate or prosecute any alcohol or drug abuse patient.[facility] TownshipIn the event this information is protected by the Federal Confidentiality of Alcohol and Drug Abuse Patient Records regulations: The Federal rules restrict any use of the information to criminally investigate or prosecute any alcohol or drug abuse patient.[facility] TownshipIn the event this information is protected by the Federal Confidentiality of Alcohol and Drug Abuse Patient Records regulations: The Federal rules restrict any use of the information to criminally investigate or prosecute any alcohol or drug abuse patient.[facility] TownshipIn the event this information is protected by the Federal Confidentiality of Alcohol and Drug Abuse Patient Records regulations: The Federal rules restrict any use of the information to criminally investigate or prosecute any alcohol or drug abuse patient.[facility] TownshipIn the event this information is protected by the Federal Confidentiality of Alcohol and Drug Abuse Patient Records regulations: The Federal rules restrict any use of the information to criminally investigate or prosecute any alcohol or drug abuse patient.[facility] TownshipIn the event this information is protected by the Federal Confidentiality of Alcohol and Drug Abuse Patient Records regulations: The Federal rules restrict any use of the information to criminally investigate or prosecute any alcohol or drug abuse patient.[facility] Reason for Visit (unrecogniz ed section and content) Reason Comments Established Patient Specialty Diagnoses / Procedures Referred By Contac t Referred To Contact Hematology/Oncology / HEMATOLOGY/ONCOLOGY Diagnoses Malignant neoplasm of right kidney, except renal pelvis STUDY PT IRB [id number] ([facility] 1820) C64.1 NCT [id number] PER SLIP Procedures OFFICE/OUTPATIENT ESTABLISHED MOD MDM 30-39 MIN EST PATIENT/[place] [address] [place] [id number] Godfrey Ohara 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 Referred To Contact Diagnoses Nonrheumatic mitral valve regurgitation Procedures CATH PLMT L HRT & ARTS W/NJX & ANGIO IMG S&I PRQ TRLUML CORONARY STENT W/ANGIO ONE ART/BRNCH CORONARY ANGIO W CATH PLACE W IMAGE INJECT & INTERP W LT HEART CATH W INJECT LT VENTRGRAPHY INSERT INTRACORONARY STENT-PER MAJOR VESSEL OR BRANCH [facility] [employer] [address] [place] [address] Referral ID Status Reason Start Date Expiration Date Visits Re quested Visits Authorized [id number] [address] Specialty Diagnoses / Procedures Referred [facility] Referred To Contact CT IMAGING Diagnoses Malignant neoplasm of right kidney, except renal pelvis (HCC) Renal cell carcinoma, unspecified laterality (HCC) Procedures CT CHEST W IVCON DIAGNOSTIC COMPUTED TOMOGRAPHY THORAX W/CONTRAST Kenneth Chester MD [address] [place] [address] Ct Imaging Referral ID Status Reason Start Date Expiration Date V isits Requested Visits Authorized [id number] Closed Auto-Generate d Referral 07/14/2021 08/28/2021 1 1 Reason Comments Results Reason Comments New Patient Reason Comments Biopsy Request Specialty Diagnoses / Procedures Referred [facility] Referred To Contact RADIO CT SCAN [facility] Diagnoses Malignant neoplasm of kidney, unspecified laterality (HCC) Malignant neoplasm of kidney excluding renal pelvis, unspecified laterality (HCC) Procedures CT ABD/PEL W IVCON CT ABD & PELVIS W/CONTRAST Adriana Hodge MD [address] [place] [address] Scan [facility] [address] [place] [address] Referral ID Status Reason Start Date Expiration Date V isits Requested Visits Authorized [id number] Closed Auto-Generate d Referral 06/26/2021 08/10/2021 1 1 Specialty Diagnoses / Procedures Referred By Contac t Referred To Contact CT IMAGING Diagnoses Malignant neoplasm of kidney, unspecified laterality (HCC) Malignant neoplasm of kidney excluding renal pelvis, unspecified laterality (HCC) Procedures CT ABD/PEL WO IVCON CT ABD & PELVIS W/O CONTRAST Adriana Hodge MD [address] [place] [address] Ct Imaging Referral ID Status Reason Start Date Expiration Date Visits Requested Visits Authorized [id number] Waiting for Response Auto-Genera mandeep Referral Patient [...] &/JOINT IMAGING WHOLE BODY Adriana Hodge MD [address] [place] [address] Molecular & Functional Imaging [address] [place] [address] Referral ID Status Reason Start Date Expiration Date V isits Requested Visits Authorized [id number] Closed Auto-Generate d Referral 06/26/2021 08/10/2021 2 2 Reason Comments Consult Specialty Diagnoses / Procedures Referred By Contac t Referred To Contact Oncology Diagnoses Malignant neoplasm of kidney, unspecified laterality (HCC) Malignant neoplasm of kidney excluding renal pelvis, unspecified laterality (HCC) Procedures CONSULT TO ONCOLOGY OFFICE/OUTPATIENT [facility] 60-74 MINUTES Adriana Hodge MD [address] [place] [address] Referral ID Status Reason Start Date Expiration Date V isits Requested Visits Authorized [id number] Closed PCP Requested Referral 06/23/2021 06/23/2022 1 [...] W/O W/CONTRAST MATERIAL Kenneth Chester MD [address] [place] [address] Mr Imaging Referral ID Status Reason Start Date Expiration Date V isits Requested Visits Authorized [id number] Closed Auto-Generate d Referral 07/14/2021 08/28/2021 1 1 Reason Comments Shortness of Breath Hypertension Reason Comments Patient Education lisa Reason Comments Patient Education Reason Comments Blood Pressure Reason Comments Refill Request Reason Onset Date Comments Opened In Error 08/18/2021 Reason Comments Results Patient Update Hat Renovator - Other Reason Comments Established Patient Specialty Diagnoses / Procedures Referred By Contac t Referred To Contact CT IMAGING Diagnoses SOB (shortness of breath) Procedures CT CHEST W IVCON PE DIAGNOSTIC COMPUTED TOMOGRAPHY THORAX W/CONTRAST Daksha Melo PA-C [address] [place] [address] Ct Imaging Referral ID Status Reason Start Date Expiration Date Visits Requested Visits Authorized [id number] Pending Review Auto-Generat ed Referral 09/02/2021 10/02/2022 1 1 Reason Comments Radio Gen [id number] Reason Comments Patient Update Reason Comments Hat Renovator - Other Reason Comments Patient Question Reason Onset Date Comments Transition Of Care 09/29/2021 Pharmacy - [facility] spital Discharge 09/26/21 Heart Failure 09/29/2021 Reason Comments Follow Up Phone Call relate care dischar follow up-1st attempt-no contact-left vm Reason Comments Medication Problem Called [facility] and canceled rx for cabzantinib and sent new order to [facility] pharmacy. Reason Onset Date Comments Refill Request 10/21/2021 Reason Comments Anesthesia Consult Reason Comments PreOp Call Cardiac Optimization , Warfarin Clearance Reason Comments Returning Patient's Call called to say that surgery was canceled d/t an imaging issue (CT). RNCC will f/u to see if surgery is rescheduled. Reason Comments Hat Renovator - Other Calling to get an update on the patient's surgery schedule (to see if it had been rescheduled), and to inform him that the speciality pharmacy is trying to get a hold of them to deliver his medication. Reason Comments Recheck Specialty Diagnoses / Procedures Referred By [facility] Referred To Contact HEMATOLOGY/ONCOLOGY Diagnoses c64.1 Procedures OFFICE VISIT Haylee Wilburn MD [address] [facility] [place] [address] [place] [address] Referral ID Status Reason Start Date Expiration Date V isits Requested Visits Authorized [id number] Closed Financial Clearance Not Required Patient Cleared - INN Insurance Found 10/23/2021 03/07/2022 [address] Specialty Diagnoses / Procedures Referred By [facility] Referred To Contact CT IMAGING Diagnoses [id number] neoplasm of right kidney, except renal pelvis (HCC) Procedures CT CHEST W IVCON [place] ABD/[place] [address] [place] [address] [address] Referral ID Status Reason Start Date Expiration Date Visits Requested Visits Authorized [id number] Closed Financial Clearance Required - OON Payor OON Notification Letter Patient Cleared - Admin/Physician Recruiter/D irector advise to proceed 11/17/2021 01/16/2022 1 0 Reason Comments Patient Update Called patient to in form him that the speciality pharmacy is going to call to set-up delivery time for his chemo medication. Patient verbalized understanding. America Schwartz, RN, BSN, OCN Reason Comments Cancer Pain Specialty Diagnoses / Procedures Referred By [facility] Referred To Contact RADIATION ONCOLOGY Diagnoses Prostate Cancer Procedures Consult and Treat Karin Cox MD [address] [place] [address] Alfredo Xavier MD [address] [place] [address] [place] [address] Referral ID Status Reason Start Date Expiration Date Visits Requested Visits Authorized [id number] Pending Review OON/Self Pay Override 12/03/2021 03/03/2022 1 1 Reason Comments New patient, to establish relationship Invalid number Letter Request Reason Comments Hat Renovator - Other Patient Update Reason Comments Informed Consent Reason Onset Date Comments Refill Request 01/22/2022 Specialty Diagnoses / Procedures Referred By Sujatha t Referred To Contact RADIATION ONCOLOGY Diagnoses Renal Cell ca Procedures OFFICE CONSULTATION NEW/ESTAB PATIENT 60 MIN monitor patient after completion of radiation treatment Suman Peterson APRN.CROWN ATTACHER [address] [place] [id number] [facility] [address] [place] [phone] Referral ID Status Reason Start Date Expiration Date V isits Requested Visits Authorized [id number] Closed OON/Self Pay Override Patient Cleared - INN Insurance Found 12/26/2021 03/26/2022 1 1 Reason Comments New Patient self-referral ANÍBAL [facility] [place].Reason for visit: hospital discharge from, 09-30-21 for new onset A. fib/RVRCardiac: 01/19/2022 EKG / 09/26/2021 Echo / 09/25/2021 EPS: Cardioversion08/05/2021 cardiac cathTelemetry: 09/26/2021 image of EKGLab work: 01/23/2022 through 06/20/2021Imagin01/19/2022 x-ray of the chest /11/20/2021 CT of the chestNote/strands: 09/22 - 09/30/2021 discharge summary Specialty Diagnoses / Procedures Referred By Contac t Referred To Contact CARDIOLOGY Diagnoses Self-referral Procedures FOLLOW-UP/REASSESSMENT Daksha Turner MD [address] [place], [place] [address] [address] [facility] [address] [facility] [address] [address] Referral ID Status Reason Start Date Expiration Date V isits Requested Visits Authorized [id number] Closed OON/Self Pay Override Patient Cleared - INN Insurance Found 12/25/2021 02/23/2022 1 1 Specialty Diagnoses / Procedures Referred By Contac t Referred To Contact HEMATOLOGY/ONCOLOGY Diagnoses Renal cell carcinoma of right kidney (HCC) Metastatic renal cell carcinoma (HCC) Procedures OFFICE VISIT W HEM/ONC Haylee Wilburn MD [address] [place] [address] [address] [facility] [place] [address] Referral ID Status Reason Start Date Expiration Date V isits Requested Visits Authorized [id number] Closed OON/Self Pay Override Patient Cleared - INN Insurance Found 02/12/2022 04/13/2022 1 1 Reason Comments Recheck Specialty Diagnoses / Procedures Referred By Sujatha t Referred To Contact HEMATOLOGY/ONCOLOGY Diagnoses Malignant neoplasm of unspecified kidney, except renal pelvis Procedures OFFICE/OUTPATIENT ESTABLISHED MOD MDM 30-39 MIN Haylee Wilburn MD [address] [place] [address] [facility] [facility] [place] [address] Referral ID Status Reason Start Date Expiration Date Visits Requested Visits Authorized [id number] Pending Review OON/Self Pay Override 03/11/2022 06/09/2022 1 1 Reason Onset Date Comments SPP Oral Oncology/hematology - Treatment Referra l 03/12/2022 Inlyta Insurance Authorization 03/12/2022 Pending PA Reason Comments Appointment Reason Onset Date Comments Refill Request 03/16/2022 In[facility] to [facility] Reason Comments Appointment Hat Renovator - Other Specialty Diagnoses / Procedures [facility] Referred To Contact CT IMAGING Diagnoses Renal cell carcinoma of right kidney (HCC) Procedures CT CHEST W IVCON DIAGNOSTIC COMPUTED TOMOGRAPHY THORAX W/CONTRAST Haylee Wilburn MD [address] [place] [address] Ct Imaging Referral ID Status Reason Start Date Expiration Date V isits Requested Visits Authorized [id number] Closed Auto-Generat ed Referral Clearance Not Met [...] BE BASED ON THE PRIMARY CLINICAL RECORDS. [employer] provides no warranty or guarantee of the accuracy or completeness of information in this document.
--- NOTE | 2024-10-19 04:18 | PCM.HP.STD ---
[facility] General Date of Admission: 10/19/24 Date of Service: 10/19/24 Chief Complaint: Abdominal Pain and Diarrhea. [facility] Narrative YEFRI YANEZ, is a 59 M with a past medical history of essential hypertension; on carvedilol twice daily, losartan, spironolactone and bumetanide, hyperlipidemia; on rosuvastatin, chronic tobacco abuse; with subsequent COPD, chronic hypoxic respiratory failure; on 3L NC continuous, obesity (class II); with BMI of 35.3 this admission, NIMCO; on CPAP, DM-2; of unknown control on dapagliflozin and semaglutide, chronic atrial fibrillation; s/p DCCV (2021) on apixaban twice daily, history of CHF; with preserved LVEF of ~50% with mild concentric LVH, borderline global hypokinesis of the left ventricle and [id number] (1-2+) eccentric mitral valve insufficiency, mild (1+) tricuspid valve insufficiency and moderate (2+) eccentric aortic valve insufficiency on recent echocardiogram done here on September 25, 2024, history of metastatic renal cancer to the bone; s/p Right nephrectomy on cabozantinib followed by Dr. Botello of oncology, CKD; stage IIIb-IV, HIRA; on ferrous sulfate twice daily, depression; on sertraline, history of muscle spasms; on tizanidine twice daily as needed, GERD; on pantoprazole, chronic diarrhea (for months) and OA who presents to [facility] ER complaining of abdominal pain and diarrhea. Mr. Yanez reports his symptoms began approximately 1 week prior to admission with an acute worsening of his chronic diarrhea causing him to feel dehydrated. He also admits to generalized cramping abdominal pain in addition to bloating with nausea with the patient feeling like he is becoming dehydrated. He states his last colonoscopy was more than 10 years ago and he is interested to find solutions for his diarrhea because he is going to the bathroom frequently at night. He denies associated fever, chills, vomiting, constipation, blood in stools, recent antibiotics, known sick contacts, significant travel, dysuria, hematuria, headache or rash. In the ER he underwent CT scan of the abdomen and pelvis without contrast that revealed previous Right-sided nephrectomy with multifocal bone Metastatic disease and CXR that revealed Right lateral chest wall mass complicated by acute worsening of chronic Diarrhea and transient Hypotension of 87/45 mmHg noted shortly after admission and he was then admitted to the PCU for ongoing care for stated is expected to extend beyond 2 midnights. [facility] Medical History Atrial fibrillation Abnormal chest x-ray Warfarin-induced coagulopathy Chronic a-fib CKD (chronic kidney disease) CKD (chronic kidney disease), stage III Systolic CHF Tobacco use NIMCO on CPAP Metastatic renal cell carcinoma to bone Renal cell cancer Hyperlipidemia GERD (gastroesophageal reflux disease) COPD (chronic obstructive pulmonary disease) Atrial fibrillation Hypertension Home Medications ?Medication ?Instructions ?Recorded ?Last Taken ?Type albuterol sulfate 2.5 mg/3 mL 2.5 mg (3 mL) inhalation PRN PRN 06/29/22 Unknown Rx (0.083 %) solution for nebulization Shortness Of Breath #75 mL ferrous sulfate 325 mg (65 mg 325 mg PO BID #30 tabs 06/29/22 Unknown Rx iron) tablet fluticasone fur. 100 mcg-umeclid 1 inh inhalation DAILY #28 ea 06/29/22 Unknown Rx 62.5 mcg-vilant 25 mcg inhalat.powder (Trelegy Ellipta) pantoprazole 40 mg tablet,delayed 40 mg PO DAILY gerd #30 tabs 06/29/22 Unknown Rx release potassium chloride 20 mEq 20 meq PO DAILY #30 tabs 06/29/22 Unknown Rx tablet,extended release rosuvastatin 40 mg tablet 40 mg PO DAILY cholesterol #30 tabs 06/29/22 Unknown Rx losartan 50 mg tablet 50 mg PO DAILY #90 tabs 09/29/22 Unknown Rx spironolactone 25 mg tablet 25 mg PO DAILY #90 tabs 09/29/22 Unknown Rx carvedilol 12.5 mg tablet 12.5 mg PO BID #180 TABLETS 06/04/24 Unknown Rx semaglutide 0.25 mg or 0.5 mg (2 0.25 mg subcut QWEEK 06/20/24 Unknown History mg/3 mL) subcutaneous pen injector (Ozempic) cabozantinib 20 mg tablet 20 mg PO QDAY 08/09/24 Unknown History apixaban 5 mg tablet (Eliquis) 5 mg PO BID #60 tabs 08/14/24 Unknown Rx Handicap Placard #1 ea 10/02/24 Unknown Rx bumetanide 2 mg tablet 2 mg PO ONCE 10/02/24 Unknown History calcitriol 0.25 mcg capsule 0.25 mcg PO QDAY 10/02/24 Unknown History dapagliflozin propanediol 5 mg 5 mg PO QDAY 10/02/24 Unknown History tablet (Farxiga) sertraline 50 mg tablet 50 mg PO QDAY 10/02/24 Unknown History tizanidine 4 mg capsule 4 mg PO BID PRN 10/02/24 Unknown History Allergy/AdvReac Type Severity Reaction Status Date / Time lisinopril Allergy Severe Angioedema Verified 10/18/24 21:09 guaifenesin (From Mucinex) Allergy Intermediate Bleeding Verified 10/18/24 21:09 aspirin (ASA) Allergy Other Verified 10/18/24 21:09 mushroom (mushrooms) Allergy Hives Verified 10/18/24 21:09 Penicillins Allergy PT UNSURE Verified 10/18/24 21:09 OF REACTION shellfish derived Allergy Hives Verified 10/18/24 21:09 Family History Father Cancer Mother Heart disease Hypertension Myocardial infarction Surgical History History of cardiac cath (~07/2021) History of cardioversion (~09/2021) History of nephrectomy, right Social History household members: spouse and family Smoking Status: Current every day smoker tobacco type: cigarettes Electronic Cigarette Use: with nicotine alcohol intake: current alcohol intake frequency: holidays/special occasions only substance use type: does not use ROS ROS Narrative Review of Systems: Constitutional: Patient denies fever or chills, Eyes: Patient denies change in vision or discharge from eyes. ENT: Patient denies runny nose, sore throat or ear pain. Resp: Patient denies shortness of breath while he is on his 3L NC. CV: Patient denies chest pain, palpitations, heart racing or lower extremity edema. GI: Patient admits to cramping abdominal pain with bloating and acute worsening of chronic nonbloody diarrhea as per HPI. : Patient denies dysuria or hematuria. MSK: Patient denies arthralgias or myalgias. Skin: Patient denies rash, abscess, wounds or jaundice. Psych: Patient denies symptoms of uncontrolled depression or anxiety. Neuro: Patient denies headache, paresthesias or focal neurologic deficits. Allergy: Patient denies lip swelling, tongue swelling or urticaria. Hematology: Patient admits to easy bleeding and easy bruisability on apixaban. Endocrinology: Patient denies polyuria, polydipsia, polyphagia or heat/cold intolerance. 14 point ROS otherwise negative except for positives noted above in HPI. Vital Signs Vital Signs Vital Signs: 10/18/24 21:03 10/18/24 21:11 10/18/24 21:13 Temperature 98.3 F 98.3 F Temperature Source Temporal Oral Pulse Rate 98 79 Respiratory Rate 18 15 Respiratory Effort Normal Non-Labored Respiratory Pattern Normal Blood Pressure 77/49 L 126/108 H Blood Pressure Mean 58 114 Pulse Ox 98 100 Oxygen Delivery Method Room Air Nasal Cannula Oxygen Flow Rate (L/min) 3 10/18/24 21:13 10/18/24 22:03 10/18/24 22:08 Temperature 98.3 F Temperature Source Oral Pulse Rate 73 Respiratory Rate 17 Respiratory Effort Respiratory Pattern Blood Pressure 126/108 H 89/69 L 89/69 L Blood Pressure Mean 114 75 75 Pulse Ox 97 Oxygen Delivery Method Nasal Cannula Oxygen Flow Rate (L/min) 3 10/18/24 22:15 10/18/24 22:45 10/18/24 23:00 Temperature 98.3 F Temperature Source Oral Pulse Rate 80 87 Respiratory Rate 23 H 19 H Respiratory Effort Respiratory Pattern Blood Pressure 83/62 L 86/69 L Blood Pressure Mean 68 74 Pulse Ox 100 97 Oxygen Delivery Method Nasal Cannula Oxygen Flow Rate (L/min) 3 10/18/24 23:03 10/18/24 23:15 10/18/24 23:30 Temperature Temperature Source Pulse Rate 78 82 76 Respiratory Rate 26 H 17 17 Respiratory Effort Respiratory Pattern Blood Pressure 86/69 L 89/76 L 92/65 Blood Pressure Mean 75 82 74 Pulse Ox 93 Oxygen Delivery Method Oxygen Flow Rate (L/min) 10/18/24 23:45 10/19/24 00:00 10/19/24 00:00 Temperature Temperature Source Pulse Rate 74 83 Respiratory Rate 15 17 Respiratory Effort Respiratory Pattern Blood Pressure 92/77 102/74 102/74 Blood Pressure Mean 83 83 82 Pulse Ox 97 100 Oxygen Delivery Method Nasal Cannula Oxygen Flow Rate (L/min) 3 10/19/24 00:14 10/19/24 00:15 10/19/24 00:30 Temperature 98.3 F Temperature Source Oral Pulse Rate 79 80 Respiratory Rate 20 H 20 H Respiratory Effort Respiratory Pattern Blood Pressure 102/74 87/78 L 102/78 Blood Pressure Mean 83 83 86 Pulse Ox 100 Oxygen Delivery Method Nasal Cannula Oxygen Flow Rate (L/min) 3 10/19/24 00:31 10/19/24 00:45 10/19/24 00:59 Temperature 98.0 F Temperature Source Temporal Pulse Rate 81 Respiratory Rate 18 Respiratory Effort Respiratory Pattern Blood Pressure 108/82 H 97/75 Blood Pressure Mean 93 82 Pulse Ox 100 100 100 Oxygen Delivery Method Nasal Cannula Oxygen Flow Rate (L/min) 3 10/19/24 01:00 10/19/24 01:14 10/19/24 01:15 Temperature 98.2 F Temperature Source Temporal Pulse Rate 83 88 72 Respiratory Rate 21 H 20 H 18 Respiratory Effort Respiratory Pattern Blood Pressure 97/75 102/68 103/78 Blood Pressure Mean 83 79 88 Pulse Ox 98 97 100 Oxygen Delivery Method Nasal Cannula Oxygen Flow Rate (L/min) 10/19/24 01:30 10/19/24 01:45 10/19/24 02:02 Temperature Temperature Source Pulse Rate 75 77 85 Respiratory Rate 19 H 17 19 H Respiratory Effort Respiratory Pattern Blood Pressure 90/70 103/83 H 87/45 L Blood Pressure Mean 78 88 58 Pulse Ox 100 100 Oxygen Delivery Method Oxygen Flow Rate (L/min) 10/19/24 02:09 10/19/24 02:11 10/19/24 02:15 Temperature Temperature Source Pulse Rate 83 86 68 Respiratory Rate 18 18 15 Respiratory Effort Respiratory Pattern Blood Pressure 102/68 102/68 112/64 Blood Pressure Mean 80 79 75 Pulse Ox 100 98 100 Oxygen Delivery Method Nasal Cannula Oxygen Flow Rate (L/min) 10/19/24 02:30 10/19/24 02:45 10/19/24 03:00 Temperature Temperature Source Pulse Rate 81 77 81 Respiratory Rate 18 19 H 22 H Respiratory Effort Respiratory Pattern Blood Pressure 96/74 106/73 104/62 Blood Pressure Mean 82 83 74 Pulse Ox 100 100 100 Oxygen Delivery Method Oxygen Flow Rate (L/min) 10/19/24 03:15 10/19/24 03:19 10/19/24 03:30 Temperature 98.4 F Temperature Source Pulse Rate 80 88 78 Respiratory Rate 18 18 19 H Respiratory Effort Respiratory Pattern Blood Pressure 104/52 L Blood Pressure Mean 69 Pulse Ox 100 96 100 Oxygen Delivery Method Oxygen Flow Rate (L/min) 10/19/24 03:45 10/19/24 04:00 Temperature Temperature Source Pulse Rate 78 80 Respiratory Rate 19 H 18 Respiratory Effort Respiratory Pattern Blood Pressure 92/75 Blood Pressure Mean 83 Pulse Ox 99 100 Oxygen Delivery Method Oxygen Flow Rate (L/min) Weight Weight: 252 lb 13.923 oz Body Mass Index (BMI) 35.2 Physical Exam Const alert, oriented x3 and no apparent distress Constitutional Narrative: Obese with chronically ill but nontoxic appearance. General Appearance: cooperative HEENT normocephalic, head/scalp atraumatic and hearing grossly normal bilaterally HEENT Narrative: Mucous membranes dry. Eyes PERRL and EOMs intact bilaterally Neck no lymphadenopathy and supple Resp normal respiratory effort, no retractions, no use of accessory muscles and clear to auscultation bilaterally Cardio regular rate and regular rhythm GI soft to palpation and non-distended GI Narrative: Generalized tenderness to palpation with no guarding or rebound. Extremity normal to inspection, full ROM and no clubbing, cyanosis or edema Skin Skin Narrative: Patient has no evidence of rash, abscess, wounds or jaundice. Neuro oriented x3, CN's II-XII intact bilaterally, moves all extremities and no focal motor deficits Sensorium / Orientation: awake, alert, oriented to person, oriented to place and oriented to time Speech: speech normal Psych affect normal Results Medical Records Data Attestation: I reviewed the patient's medical records Lab / Micro Data Attestation: I reviewed the patient's lab results. 10/18/24 21:15 10/18/24 21:15 Labs: Laboratory Results - last 24 hr 10/18/24 00:11: Urine Color Yellow, Urine Clarity Clear, Urine pH 5.0, Ur Specific [place] 1.020, Urine Protein 30 H, Urine Glucose (UA) 100 H, Urine Ketones Negative, Urine Occult Blood 10 H, Urine Nitrite Negative, Urine Bilirubin 1 H, Urine Urobilinogen Normal, Ur Leukocyte Esterase Negative, Urine RBC 0-5 SEEN, Urine WBC 0-5 SEEN, Ur Squamous Epith Cells 0-5 SEEN, Urine Bacteria 1+, Hyaline Casts 10-25 SEEN, Urine Mucus 0 SEEN 10/18/24 21:15: WBC 5.1, RBC 4.48 L, Hgb 14.6, Hct 42.5, MCV 94.9 H, MCH 32.6 H, MCHC 34.4, RDW Std Deviation 62.2 H, RDW Coeff of Lizzie 18.1 H, Plt Count 201, MPV 10.4, Immature Gran % (Auto) 0.400, Neut % (Auto) 66.2, Lymph % (Auto) 22.9, Teller % (Auto) 7.8, Eos % (Auto) 2.5, Baso % (Auto) 0.2, Absolute Neuts (auto) 3.4, Absolute Lymphs (auto) 1.17, Nucleated RBC % 0, Sodium 138, Potassium 4.6, Chloride 103, Carbon Dioxide 18.1 L, Anion Gap 16 H, BUN 31 H, Creatinine 2.77 H, Est GFR (MDRD) Non-Af 25 L, BUN/Creatinine Ratio 11.3, Glucose 116 H, Calcium 9.5, Total Bilirubin 0.54, AST 46 H, ALT 47, Alkaline Phosphatase 58, Total Protein 7.0, Albumin 4.0, Globulin 3.0, Albumin/Globulin Ratio 1.3, Lipase 86 H 10/18/24 23:25: Lactic Acid 1.0 Micro: Microbiology 10/18/24 22:00 Stool Enteric Bacteriology - Final 10/18/24 23:25 Mucosa - Nose SARS-CoV-2, Influenza & RSV (PCR) - Final 10/18/24 22:00 Stool Clostridioides difficile (PCR) - Final Imaging Radiology Impression Abdomen/Pelvis CT 10/18/24 22:48 IMPRESSION: No acute abdominopelvic findings. Status post right-sided nephrectomy with multifocal bone metastatic disease. Reading Location: [place] [id number] Chest X-Ray 10/18/24 22:50 IMPRESSION: Right lateral chest wall mass. Reading Location: [facility] Assessment & Plan Assessment/Plan (1) Diarrhea: QUALIFIERS: Diarrhea type: presumed infectious Qualified Code(s): R19.7 - Diarrhea, unspecified (2) Hypotension due to hypovolemia: (3) Metastatic renal cell carcinoma to bone: (4) Renal cell cancer: QUALIFIERS: Laterality: right Qualified Code(s): C64.1 - Malignant neoplasm of right kidney, except renal pelvis (5) CKD (chronic kidney disease) stage 3, GFR 30-59 ml/min: QUALIFIERS: Chronic kidney disease stage 3 subtype: stage 3b (GFR 30-44) Qualified Code(s): N18.32 - Chronic kidney disease, stage 3b (6) Obesity (BMI 30.0-34.9): (7) Chronic atrial fibrillation: (8) Chronic anticoagulation: PLAN: Plan 1. Acute worsening of chronic nonbloody Diarrhea - Admit to PCU and placed on enteric precautions. Check stool studies. Give empiric IV metronidazole until stool studies confirm negative for infectious etiology. Give ondansetron IV as needed for nausea or vomiting. Give acetaminophen as needed for thri-li-aitmyddx (level 1-5/10) pain or fever. Give morphine IV as needed for severe (level 6-10/10) pain. Patient was not suspected to have sepsis present on admission with normal white blood cell count 5.1 K, normal lactate of 1 mmol/L and persistently afebrile since admission. Finally, we will consult gastroenterology to see this patient on rounds in the a.m. for further recommendations with help appreciated in advance. 2. Hypotension of 87/45 mmHg noted shortly after admission likely due to #1 - Volume resuscitate and follow vital signs per protocol for hopeful improvement. 3. CT scan of the abdomen and pelvis without contrast that revealed previous Right-sided nephrectomy with multifocal bone Metastatic disease and CXR that revealed Right lateral chest wall mass in the setting of a known history of metastatic renal cancer complicating #1 & #2 - Noted. 4. CKD; stage IIIb-IV adding to the medical complexity of #1 - #3 - Check renal indices daily to ensure continued stability with suspected volume contraction due to #1. 5. Obesity (class II); with BMI of 35.3 this admission plus NIMCO; on CPAP adding to the burden of disease outlined from #1 - #4 - Weight loss will be recommended. Check TSH. Resume nocturnal CPAP. This complicates his case ad may hamper recovery. 6. Chronic atrial fibrillation; s/p DCCV (2021) on apixaban twice daily adding to the medical complexity of #1 - #5 - Maintain apixaban as previous. 7. Chronic tobacco abuse; with subsequent COPD and chronic hypoxic respiratory failure; on 3L NC continuous - Stable without evidence of acute flare at this time. Continue scheduled and as needed nebulizers/inhalers. Tobacco cessation will be strongly encouraged with nicotine patch offered to control cravings. 8. History of CHF; with preserved LVEF of ~50% with mild concentric LVH, borderline global hypokinesis of the Left ventricle and [id number] (1-2+) eccentric mitral valve insufficiency, mild (1+) tricuspid valve insufficiency and moderate (2+) eccentric aortic valve insufficiency on recent echocardiogram done here on September 25, 2024 - Noted. 9. Essential hypertension; on carvedilol twice daily, losartan, spironolactone and bumetanide - Hold all antihypertensive medications except carvedilol. Restart diuretics when volume status restored. 10. Hyperlipidemia; on rosuvastatin - Resume statin an check Lipid Profile. 11. DM-2; of unknown control on dapagliflozin and semaglutide - Hold current hypoglycemia medications. ADA/renal diet with FSBS q. AC/HS plus SSI. Check HgbA1c to objectively evaluate quality of diabetic control. 12. HIRA; on ferrous sulfate twice daily - Stable with hemoglobin of 14.6 g/dL and MCV of 94.9fL present on admission. 13. Depression; on sertraline - Maintain on sertraline as before. 14. History of muscle spasms; on tizanidine twice daily as needed - Current therapy to continue as previous. 15. GERD; on pantoprazole - Resume PPI. 16. OA - Give acetaminophen prn as outlined in #1. 17. DVT prophylaxis - Patient on apixaban for #6 which will be continued. Total time: Approximately (but not less than) 75 minutes. Charges/Coding Visit Charges Inpatient E&M: 36605 Init Hosp L3
--- OUTSIDE RECORDS SUMMARY | 2024-10-19 05:09 | XMS RPT_ITS | CCD ---
Author Organization [facility] Care Team Providers Care Front Desk Worker Name Role Phone Unavailable, Family Physician Primary Care Physi terese Unavailable Jillian Maurer DO Primary Care Provider [phone] Daksha Turner MD Primary Care Provider Sumi HAHN, Sary Unavailable Unavailable Lalo Black MD Unavailable Rahul Knight RN Unavailable Madiha vailable Bropeggyan [facility], Safia Unavailable Daksha Turner MD Primary Care Provider Sumi HAHN, Sary Unavailable Unavailable Lalo Black MD Unavailable Rhaul Knight RN Unavailable Madiha vailable Brodman RP, Safia Unavailable Daksha Turner MD Primary Care Provider Lalo Black MD Unavailable Rahul Kinght RN Unavailable Madiha vailable Haylee Wilburn MD Unavailable Alfredo Xavier MD Unavailable Haylee Wilburn MD Unavailable Unavailable Primary Care Provider Unavailabl Dr. Jose Ramon Rincon Primary Care Provider Dr. Speedy Bass Emergency Provider [phone] Dr. Mehrdad Villalpando Admit Provider Dr. Mehrdad Villalpando Attending Provider Dr. Merhdad Villalpando Other Provider Dr. Moises Gaona Attending Provider Dr. Rahul Malone Attending Provider Unavailable Dr. Rahul Malone Other Provider Unavailable Daksha Turner MD Primary Care Provider Sary Teresa Unavailable Unavailable Wayne CLEMENT, Lalo Unavailable Eugene LOPEZ, Rahul Candelaria Unavailable Madiha dee Wilburn MD, Haylee Cunningham Unavailable [phone] Duc CLEMENT, Alfredo Sherwood Unavailable [phone] Daksha Turner Unavailable [phone] Unavailable, Family Physician Primary Care Un available Unavailable, Family Physician Consulting Un available Siri Harris Attending Unavailable Daksha Turner Unavailable Andre Mota Unavailable Unavailable JasvireGrard lozarit Unavailable Aravind Hernandez Unavailable Unavailable Alyssa London Unavailable Nellie CLEMENT, Sayra Martinez Unavailable ORNSTEIN, KENNETH Referring Unavailable ROCCHIO, JILLIAN Primary Care Unavailable ORNSTEIN, KENNETH Referring Unavailable ROCCHIO, JILLIAN Primary Care Unavailable ORNSTEIN, KENNETH Referring Unavailable DAKSHA TURNER Primary Care Unavailabl e ORNSTEIN, KENNETH Referring Unavailable DAKSHA TURNER Primary Care Unavailabl e DAKSHA EMLO Referring Unavaila ble JANUSZ TURNERER Abdirahman Primary [...] Care Unavailabl e KITTY VALDEZ Referring Unavailable DAKHSA TURNER Primary Care Unavailabl e SUMAN PETERSON [...] Attending Unavailable HAYLEE WILBURN Referring Unavailable DAKSHA TURENR Primary Care Unavailabl e HAYLEE WILBURN Referring [...] Unavailabl e Dr. Kassy Banda Emergency Provider [phone] Dr. Alicia Dukes Admit Provider Dr. Alicia [...] Johnny, Dr. Daksha Lugo Referring Madiha vailable [place], Dr. Aravind Rodriguez Attending Unavailab le Johnny, [...] Referring Provider Dr. Dangelo Botello Attending Provider aDksha Turner MD Primary Care Provider Wayne CLEMENT, Lalo Unavailable Eugene LOPEZ, Rahul Candelaria Unavailable Madiha dee Tello MD, [facility] N Unavailable Dr. Daksha Turner MD Primary [...] CLEMENT, Dr. Candelaria Primary Care Provider Khoa OFFICE MACHINE MECHANIC-C, Gini Attending Provider Khoa OFFICE MACHINE MECHANIC-C, Gini Referring Provider Jimenez CLEMENT, Dr. De Leon Attending Provider Khoa OFFICE MACHINE MECHANIC-C, Gini Other Provider Johnny CLEMENT, Dr. Candelaria [...] Care Unavailable Jimenez, Moises Attending Unavailable Ranney, [facility] [place] Primary Care Unavailable Khoa, Gini Attending Unavailable Ranney, [facility] [place] Primary Care Unavailable Ranney, Christopher Referring Unavailable Khoa, Gini Attending Unavailable Ranney, [facility] [place] Primary Care Unavailable Khoa, Gini Referring Unavailable Couch, Gini Attending Unavailable [facility], [facility] Unavailable Prah, Dangelo Attending Unavailable Prah, Dangelo Referring Unavailable Ranney, [facility] [place] Primary Care Unavailable Praguillermo, Dangelo Attending Unavailable Prah, Dangelo Referring Unavailable Couch, Gini Referring Unavailable Ranney, [facility] [place] Primary Care Unavailable Khoa, Gini Attending Unavailable Ranney, Christopher Referring Unavailable Ranney, [facility] Primary Care Unavailable Ranney, Christopher Attending Unavailable Ranney, Christopher Referring Unavailable Ranney, [facility] [place] Primary Care Unavailable Ranney, Christopher Attending Unavailable Ranney, Christopher Attending Unavailable Ranney, [facility] [place] Primary Care Unavailable Ranney, Christopher Referring Unavailable Ranney, [facility] Primary Care Unavailable Ranney, Christopher Referring Unavailable Gini Couch Attending Unavailable Allergies Allergy Classification Reported Allergen(s) Allergy Type Date of Onset Reaction(s) Facility (20 sources) Aspirin; Translations: [Aspirin TABS] Drug Allergy 5 Hives, Intolerance [facility] (20 sources) Lisinopril; Translations: [Lisinopril TABS] Drug Allergy 3 Angioedema [facility] (20 sources) Penicillins; Translations: [Penicillins] Allergy to substance 4 Intolerance [facility] (20 sources) Shellfish; Translations: [shellfish derived] Allergy to substance 0 Anaphylaxis [facility] (20 sources) Shellfish; Translations: [SHELLFISH CONTAINING PRODUCTS] Drug Allergy 0 Anaphylaxis, [facility] (20 sources) cultivated mushroom extract; Translations: [MUSHROOM] Drug Allergy 2 [facility] (3 sources) Aluminum aspirin Drug Allergy 9 [facility] (3 sources) Shellfish-deriv ed Products; Translations: [Shellfish-deri angy Products] Allergy to drug (finding) [facility] [facility] 400 DO Work Phone: (1 source) Mushroom (edible) Unknown [facility] (1 source) Penicillin Drug Allergy Unknown [facility] (1 source) Shellfish Unknown [facility] (18 sources) guaiFENesin Drug Allergy 3 Bleeding [facility] (1 source) Aspirin Drug Allergy 5 [facility] Repository (1 source) guaiFENesin Drug Allergy 5 [facility] Repository (1 source) Lisinopril Drug Allergy 5 [facility] Repository (1 source) Mushroom (edible) Drug allergy (disorder) 5 [facility] Repository Medications Current Medications Medication Drug Class(es) Dates Sig (Normalized) Sig (Original) acetaminophen 500 mg oral tablet (20 sources) Start: 07-15-2021 take 2 tablets by mouth every six hours as needed acetaminophen (TYLENOL EXTRA STRENGTH) 500 mg tablet Take 2 tablets by mouth every 6 hours as needed for pain. 100 tablet 07/15/2021 Active Comment on above: Take 2 tablets by mo [facility] every 6 hours as needed for [...] by mouth once daily. once daily. calcitriol 0.46145 mg oral capsule (2 sources) Vitamin D3 [...] daily with meals. Take 1 tablet by kellei th twice daily. Take 1 tablet by [...] sources) Anticholinergic, Corticosteroid, beta2-Adrenergic Agonist Start: 06-29-2022 Mnjvbwfubuk-Nnctgcjiw-X ilanter (Trelegy Ellipta) 100-62.5-25 mcg blister with [...] 29, 2022 11:13am Start: 05-22-2022 End: 06-29-2022 Iornycwyytt-Dlznbbico-Ngernq er (Trelegy Ellipta) 100-62.5-25 mcg blister with device Discontinued 1 NMA INHALATION DAILY May 22, 2022 12:00am June 29, 2022 11:14am Start: 05-22-2022 End: 06-29-2022 Sdybznultux-Awczmusyz-Zknpdh er (Trelegy Ellipta) 100-62.5-25 mcg blister with device Discontinued 1 INH INHALATION DAILY May 21, 2022 11:00pm June 29, 2022 10:14am Start: 05-22-2022 End: 06-29-2022 Avigqmwtmmx-Uyymvxgya-Hktncp er (Trelegy Ellipta) 100-62.5-25 mcg blister with [...] 10 mL injection (DEFINITY) polyethylene glycol 3350 79970 mg powder for oral solution (16 sources) [...] Start: 02-06-2022 End: 04-09-2022 polyethylene glycol 3350 ([place] RALAX, GLYCOLAX) 17 gram/dose powder Comment on [...] (KLOR-CON ) 20 mEq packet Potassium Chloride* ([id number]) 20 MEQ PACKET Active 20 MEQ PO 0 07/22/2021 Discontinued (Clinical Decision) Potassium Chlori de* ([id number]) 20 MEQ PACKET Active 20 MEQ PO Comment on above: Take 1 tablet by kellie once daily. Potassium Chloride* ([id number]) 20 MEQ PACKET Active 20 MEQ PO [...] on above: TAKE 2 TABLETS BY MO [facility] TO EQUAL 40 MG ONCE PER DAY Take 1 tablet by [facility] once daily. Take 2 tablets by mo [facility] once daily. TAKE 2 TABLETS BY [...] tablet by mouth once daily Atenolol * (MIOPMWRB30 MG) 25 MG TABLET Discontinued 25 MG [...] needed for muscle spasms Cyclobenzaprine HCl * (AMYGCXZMFWRMLTL80 MG) 10 MG TABLET Discontinued 10 MG [...] tablet by mouth once daily Hydrochlorothiazide * (IRUBMETHJJDCJTJ42 MG) 25 MG TABLET Discontinued 25 MG [...] Comment on above: Take 1 capsule by [facility] once daily. iv contrast (will [...] 2019 12:00am December 09, 2021 7:58am nystatin 714251 unt/ml oral suspension (20 sources) Polyene Antifungal Start: 3 End: 5 Nystatin 100,000 unit/mL suspension Discontinued 840239 U PO DAILY 60 0 June 29, 2022 12:00am August 14, 2024 1:19pm administer 1/2 of dose in each side of the mouth Start: 05-20-2022 End: 05-25-2022 Nystatin 100,000 unit/mL gianluca pension Discontinued [id number] U PO DAILY 35 7 0 May [...] Start: 09-26-2021 take 2 tablets by mo [facility] once daily predniSONE (DELTASONE) 20 mg tablet Take 2 tablets by mouth once daily. 90 tablet 1 09/26/2021 Active Start: 09-11-2021 take 3 tablets by mo ut once daily predniSONE (DELTASONE) 20 mg tablet Take 3 tablets by mouth once daily. 90 tablet 1 09/11/2021 Suspended Comment on above: Take 3 tablets by mo ut once daily. Take 2 tablets by mo [facility] once daily. rosuvastatin calcium 40 mg [...] Coronary atherosclerosis; Translations: [Atherosclerotic heart disease of jamul coronary artery without angina pectoris] Onset: 2 [...] 5 02-06-2022 Episodic Other aftercare (1 source) terminal operator (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 of 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; Translations: [terminal operator (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 of 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] Onset: 2 Episodic Other aftercare (1 source) Other long term care administrator (current) drug therapy; Translations: [Other usp (current) drug therapy] Onset: 2 Episodic Other [...] Respiratory failure; insufficiency; arrest (adult) (2 sources) Fgrvx-fs-wdwuspf respiratory failure 02-07-2022 Chronic Respiratory failure; insufficiency; [...] ERROR Unclassified (2 sources) RIGHT LAPAROSCOPIC NEPHRECTOMY (10041) 02-03-2022 Comment on above: RIGHT LAPAROSCOPIC N EPHRECTOMY (59219) Unclassified (2 sources) Body mass index (BMI) [...] Auto (Unsp spec) [#/Vol] 1.41 10*3/uL 0.83-4.51 [facility] Absolute neutrophil countOrd ered By: Gini Couch on 10-02-2024 Neutrophils (Bld) [#/Vol] 3.8 10*3/uL 2.0-7.7 [facility] Anion gap in Serum or Plasma Ordered By: Gini Couch on 10-02-2024 Anion gap [Moles/Vol] 13 mmol/L 5-15 [facility] Automated blood erythrocyte countOrdered By: Gini Couch on 10-02-2024 RBC (Bld) [#/Vol] 4.48 10*6/uL Low 4.6-6.2 [facility] Comment on above: Performed By: #### L 500.2500, L100.0100 ####[facility] [address] [place], [address] Automated blood hematocrit ( percentage)Ordered By: Gini Couch on 10-02-2024 Hematocrit (Bld) [Volume fraction] 43.4 % Normal 40-54 [facility] Comment on above: Performed By: #### L 500.2500, L100.0100 ####[facility] [address] [place], [address] Automated lymphocyte count a s percentage of total leukocytesOrdered By: Gini Couch on 10-02-2024 Lymphocytes/100 WBC Auto (Unsp spec) 24.7 % 19-41 [facility] BUN/creatinine ratioOrdered By: Gini Couch on 10-02-2024 Urea nitrogen/Creatinine [Mass ratio] 10.6 mg/mg 10-20 [facility] Basic Metabolic Profile (BMP )on 10-02-2024 BUN/CRE 10.6 RATIO Normal 10-20 [facility] Comment on above: Performed By: #### L 500.2500, L100.0100 ####[facility] [address] [place], [address] Calcium [Mass/Vol] 9.5 mg/dL Normal 7.6-11.0 [facility] Comment on above: Performed By: #### L 500.2500, L100.0100 ####[facility] [address] [place], [address] Chloride [Moles/Vol] 102 mmol/L Normal 98-108 [facility] Comment on above: Performed By: #### L 500.2500, L100.0100 ####[facility] [address] [place], [address] CO2 [Moles/Vol] 20.4 mmol/L Low 21.0-32.0 [facility] Comment on above: Performed By: #### L 500.2500, L100.0100 ####[facility] [address] [place], [address] Creatinine [Mass/Vol] 2.65 mg/dL High 0.70-1.20 [facility] Comment on above: Performed By: #### L 500.2500, L100.0100 ####[facility] [address] [place], [address] GAP 13 Normal 5-15 [facility] Comment on above: Performed By: #### L 500.2500, L100.0100 ####[facility] [address] [place], [address] GFR/1.73 sq M.predicted among non-blacks MDRD (S/P/Bld) [Vol rate/Area] 27 mL/min/{1.73_m2} Low >60 [facility] Comment on above: Result Comment: mL/m in/1.73m2 CKD-EPI Creatinine Equation (2020) Performed By: #### L 500.2500, L100.0100 ####[facility] [address] [place], [address] Glucose [Mass/Vol] 131 mg/dL High 70-99 [facility] Comment on above: Performed By: #### L 500.2500, L100.0100 ####[facility] [address] [place], [address] Potassium [Moles/Vol] 4.5 mmol/L Normal 3.3-5.1 [facility] Comment on above: Result Comment: Hemo lysis present, Results??could be affected. ?? Performed By: #### L 500.2500, L100.0100 ####[facility] [address] [place], [address] Sodium [Moles/Vol] 136 mmol/L Normal 133-145 [facility] Comment on above: Performed By: #### L 500.2500, L100.0100 ####[facility] [address] [place], [address] Urea nitrogen [Mass/Vol] 28 mg/dL High 4-19 [facility] Comment on above: Performed By: #### L 500.2500, L100.0100 ####[facility] [address] [place], [address] Basophil percentageOrdered B y: Gini Couch on 10-02-2024 Basophils/100 WBC (Bld) 0.4 % Normal 0-1 [facility] Comment on above: Performed By: #### L 500.2500, L100.0100 ####[facility] [address] [place], [address] CBC W/Diff, Automatedon 09-06 Absolute Lymph 1.41 X10 3/uL Normal 0.83-4.51 [facility] Comment on above: Performed By: #### L 500.2500, L100.0100 ####[facility] [address] [place], [address] Absolute Neut 3.8 X10 3/uL Normal 2.0-7.7 [facility] Comment on above: Performed By: #### L 500.2500, L100.0100 ####[facility] [address] [place], [address] IG% 0.400 Normal 0.0-0.9 [facility] Comment on above: Result Comment: IG% - Immature Granulocytes (promyelocytes, myelocytes and metamyelocytes) > 1% indicates that a LEFT SHIFT is Present. Performed By: #### L 500.2500, L100.0100 ####[facility] [address] [place], [address] Lymphocytes/100 WBC (Bld) 24.7 % Normal 19-41 [facility] Comment on above: Performed By: #### L 500.2500, L100.0100 ####[facility] [address] [place], [address] Nucleated RBC (Bld) [#/Vol] 0.5 10*3/uL Normal 0-5 [facility] Comment on above: Performed By: #### L 500.2500, L100.0100 ####[facility] [address] [place], [address] RDW SD 61.3 fl High 35.1-43.9 [facility] Comment on above: Performed By: #### L 500.2500, L100.0100 ####[facility] [address] [place], [address] Carbon dioxide, total [Moles /volume] in Central venous bloodOrdered By: Gini Couch on 10-02-2024 CO2 [Moles/Vol] 20.4 mmol/L Low 21.0-32.0 [facility] Cardiology Visit Reporton Cardiology Visit Report [facility] [address] [place] [address] OFFICE VISIT Date of Service: 10/02/24 MR#: [id number] Acct: [id number] Name: YEFRI YANEZ Rep #: [id number] : 1965 Provider: JARVIS campos Age/Sex: 59/M [place] [facility] Status: Signed HPI HPI History of [...] the care of the oncologist here at [facility]. He had presented to the hospital with [...] he had a DC cardioversion at the [facility] system in September 2021. He had previously been seeing a instructor trainer canine service in the [facility] system. During this admission to the hospital in May 2022 his medications were optimized he was diuresed his creatinine actually improved and he was subsequently discharged to find a 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 He also had a history of atrial [...] air Intake Visit Reasons: 6-8 W FU [employer] Required: No Accompanied by: Self Is patient [...] ea 06/07 (more content not included)... Normal [facility] Chloride assayOrdered By: Eduardo Couch on 10-02-2024 Chloride [Moles/Vol] 102 mmol/L 98-108 [facility] Eosinophil percentageOrdered By: Gini Couch on 10-02-2024 Eosinophils/100 WBC (Bld) 1.9 % Normal 0-5 [facility] Comment on above: Performed By: #### L 500.2500, L100.0100 ####[facility] [address] [place], [address] Erythrocyte distribution wid th ratioOrdered By: Gini Couch on 10-02-2024 Erythrocyte distribution width (RBC) [Ratio] 17.2 % High 11.6-14.6 [facility] Comment on above: Performed By: #### L 500.2500, L100.0100 ####[facility] [address] [place], [address] Erythrocyte distribution wid th standard deviationOrdered By: Gini Couch on 10-02-2024 Erythrocyte distribution width (RBC) [Ratio] 61.3 fl High 35.1-43.9 [facility] Glomerular filtration rate ( GFR) estimation/1.73 sq m using serum, plasma, or whole bOrdered By: Gini Couch on 10-02-2024 GFR/1.73 sq M.predicted among non-blacks MDRD (S/P/Bld) [Vol rate/Area] 27 mL/min/{1.73_m2} Low >60 [facility] Comment on above: mL/min/1.73m2 CKD-EP I Creatinine Equation (2020) Hemoglobin measurementOrdere d By: Gini Couch on 10-02-2024 Hemoglobin (Bld) [Mass/Vol] 14.6 g/dL Normal 13.0-16.5 [facility] Comment on above: Performed By: #### L 500.2500, L100.0100 ####[facility] [address] [place], [address] Immature granulocytes/100 WB C Auto (Bld)Ordered By: Gini Couch on 10-02-2024 Immature granulocytes/100 WBC (Bld) 0.400 % 0.0-0.9 [facility] Comment on above: IG% - Immature Granu locytes (promyelocytes, myelocytes and metamyelocytes) > 1% indicates that a LEFT SHIFT is Present. MCV (mean corpuscular volume ) determinationOrdered By: Gini Couch on 10-02-2024 MCV (RBC) [Entitic vol] 96.9 fL High 80-94 [facility] Comment on above: Performed By: #### L 500.2500, L100.0100 ####[facility] [address] [place], [address] Mean corpuscular hemoglobin (MCH) determinationOrdered By: Gini Couch on 10-02-2024 MCH (RBC) [Entitic mass] 32.6 pg High 27.0-32.0 [facility] Comment on above: Performed By: #### L 500.2500, L100.0100 ####[facility] [address] [place], [address] Mean corpuscular hemoglobin concentration (MCHC) determinationOrdered By: Gini Couch on 10-02-2024 MCHC (RBC) [Mass/Vol] 33.6 g/dL Normal 32-36 [facility] Comment on above: Performed By: #### L 500.2500, L100.0100 ####[facility] [address] [place], [address] Mean platelet volume determi nationOrdered By: Gini Couch on 10-02-2024 Platelet mean volume (Bld) [Entitic vol] 10.7 fL Normal 6.2-12.0 [facility] Comment on above: Performed By: #### L 500.2500, L100.0100 ####[facility] [address] [place], [address] Monocyte percentageOrdered B y: Gini Couch on 10-02-2024 Monocytes/100 WBC (Bld) 5.4 % Normal 0-[address] [facility] Comment on above: Performed By: #### L 500.2500, L100.0100 ####[facility] [address] [place], [address] Neutrophil percentageOrdered By: Gini Couch on 10-02-2024 Neutrophils/100 WBC (Bld) 67.2 % Normal 47-70 [facility] Comment on above: Performed By: #### L 500.2500, L100.0100 ####[facility] [address] [facility] [place], [address] Nucleated red blood cell per centageOrdered By: Gini Couch on 10-02-2024 Nucleated RBC/100 WBC (Bld) [Ratio] 0.5 % 0-5 [facility] Platelet countOrdered By: Eduardo Couch on 10-02-2024 Platelets (Bld) [#/Vol] 213 10*3/uL Normal 150-450 [facility] Comment on above: Performed By: #### L 500.2500, L100.0100 ####[facility] [address] [facility] [place], [place], [address] Potassium measurement (mass/ volume)Ordered By: Gini Couch on 10-02-2024 Potassium (Unsp spec) [Mass/Vol] 4.5 mmol/L 3.3-5.1 [facility] Comment on above: Hemolysis present, R esults could be affected. Serum creatinine measurement (mass/volume)Ordered By: Gini Couch on 10-02-2024 Creatinine [Mass/Vol] 2.65 mg/dL High 0.70-1.20 [facility] Serum glucose measurement (m ass/volume)Ordered By: Gini Couch on 10-02-2024 Glucose [Mass/Vol] 131 mg/dL High 70-99 [facility] Serum or plasma calcium cory urement (mass/volume)Ordered By: Gini Couch on 10-02-2024 Calcium [Mass/Vol] 9.5 mg/dL 7.6-11.0 [facility] Serum or plasma urea nitroge n measurement (mass/volume)Ordered By: Gini Couch on 10-02-2024 Urea nitrogen [Mass/Vol] 28 mg/dL High 4-19 [facility] Sodium levelOrdered By: Mercedes Couch on 10-02-2024 Sodium [Moles/Vol] 136 mmol/L 133-145 [facility] White blood cell (WBC) count Ordered By: Gini Couch on 10-02-2024 WBC (Bld) [#/Vol] 5.7 10*3/uL Normal 4.4-11.0 [facility] Comment on above: Performed By: #### L 500.2500, L100.0100 ####[facility] [address] [place], [address] Anion gap in Serum or Plasma Ordered By: Daksha Turner on 09-25-2024 Anion gap [Moles/Vol] 11 mmol/L 07-20 [facility] BUN/creatinine ratioOrdered By: Daksha Turner on 09-25-2024 Urea nitrogen/Creatinine [Mass ratio] 11.7 mg/mg - [facility] Basic Metabolic Profile (BMP )on 09-25-2024 BUN/CRE 11.7 RATIO Normal 12-25 [facility] Comment on above: Order Comment: Order Date: 09/25/24 Order Info: [id number] - BMP Order Info: [id number] - MG Order Info: 2497-06 - FE Order Info: 2275-06 - MARTIN Performed By: #### L 500.2500, L509.1000, L503.6150, L100.0500, L501.5200, L101.9900, L503.6550 #### [facility] [address] [place], [address] Calcium [Mass/Vol] 9.7 mg/dL Normal 7.6-11.0 [facility] Comment on above: Order Comment: Order Date: 09/25/24 Order Info: 0667-1 - BMP Order Info: [id number] - MG Order Info: 2497-06 - FE Order Info: 2275-4 - MARTIN Performed By: #### L 500.2500, L509.1000, L503.6150, L100.0500, L501.5200, L101.9900, L503.6550 #### [facility] [address] [place], [address] Chloride [Moles/Vol] 102 mmol/L Normal 98-108 [facility] Comment on above: Order Comment: Order Date: 09/25/24 Order Info: 0667-1 - BMP Order Info: [id number] - MG Order Info: 2498-4 - FE Order Info: 2276-4 - MARTIN Performed By: #### L 500.2500, L509.1000, L503.6150, L100.0500, L501.5200, L101.9900, L503.6550 #### [facility] [address] [place], [place], [phone] CO2 [Moles/Vol] 23.7 mmol/L Normal 21.0-32.0 [facility] Comment on above: Order Comment: Order Date: 09/25/24 Order Info: 666-03 - BMP Order Info: [id number] - MG Order Info: 2494 - FE Order Info: 2275-4 - MARTIN Performed By: #### L 500.2500, L509.1000, L503.6150, L100.0500, L501.5200, L101.9900, L503.6550 #### [facility] [address] [place], [place], [phone] Creatinine [Mass/Vol] 2.11 mg/dL High 0.70-1.20 [facility] Comment on above: Order Comment: Order Date: 09/25/24 Order Info: 666-03 - BMP Order Info: 80634-7 - MG Order Info: 2498-4 - FE Order Info: 227-4 - MARTIN Performed By: #### L 500.2500, L509.1000, L503.6150, L100.0500, L501.5200, L101.9900, L503.6550 #### [facility] [address] [place], [place], [phone] Normal 5-15 [facility] Comment on above: Order Comment: Order Date: 09/25/24 Order Info: 666-03 - BMP Order Info: 36311-9 - MG Order Info: 2498-4 - FE Order Info: 2276-4 - MARTIN Performed By: #### L 500.2500, L509.1000, L503.6150, L100.0500, L501.5200, L101.9900, L503.6550 #### [facility] [address] [place], [place], [phone] GFR/1.73 sq M.predicted among non-blacks MDRD (S/P/Bld) [Vol rate/Area] 35 mL/min/{1.73_m2} Low >60 [facility] Comment on above: Order Comment: Order Date: 09/25/24 Order Info: 666-03 - BMP Order Info: [id number] - MG Order Info: 249-4 - FE Order Info: 227-4 - MARTIN Result Comment: mL/m in/1.73m2 CKD-EPI Creatinine Equation (2020) Performed By: #### L 500.2500, L509.1000, L503.6150, L100.0500, L501.5200, L101.9900, L503.6550 #### [facility] [address] [place], [place], [phone] Glucose [Mass/Vol] 99 mg/dL Normal 70-99 [facility] Comment on above: Order Comment: Order Date: 09/25/24 Order Info: 666-03 - BMP Order Info: 97789-9 - MG Order Info: [id number] - FE Order Info: 227-4 - MARTIN Performed By: #### L 500.2500, L509.1000, L503.6150, L100.0500, L501.5200, L101.9900, L503.6550 #### [facility] [address] [place], [address] Potassium [Moles/Vol] 4.5 mmol/L Normal 3.3-5.1 [facility] Comment on above: Order Comment: Order Date: 09/25/24 Order Info: 666-03 - BMP Order Info: 23953-6 - MG Order Info: 24984 - FE Order Info: 2276-4 - MARTIN Performed By: #### L 500.2500, L509.1000, L503.6150, L100.0500, L501.5200, L101.9900, L503.6550 #### [facility] [address] [place], [place], [phone] Sodium [Moles/Vol] 136 mmol/L Normal 133-145 [facility] Comment on above: Order Comment: Order Date: 09/25/24 Order Info: 0667-1 - BMP Order Info: [id number] - MG Order Info: 24984 - FE Order Info: 2275-4 - MARTIN Performed By: #### L 500.2500, L509.1000, L503.6150, L100.0500, L501.5200, L101.9900, L503.6550 #### [facility] [address] [place], [place], [address] Urea nitrogen [Mass/Vol] 25 mg/dL High 4-19 [facility] Comment on above: Order Comment: Order Date: 09/25/24 Order Info: 0667-1 - BMP Order Info: 00414-8 - MG Order Info: 2497-06 - FE Order Info: 2275-06 - MARTIN Performed By: #### L 500.2500, L509.1000, L503.6150, L100.0500, L501.5200, L101.9900, L503.6550 #### [facility] [address] [place], [place], [address] CBC-Complete Blood Cnt No Di ffon 09-25-2024 Erythrocyte distribution width (RBC) [Ratio] 17.0 % High 11.6-14.6 [facility] Comment on above: Order Comment: Order Date: 09/25/24 Order Info: [id number] - CBC Order Info: 31476-3 - SED Performed By: #### L 500.2500, L509.1000, L503.6150, L100.0500, L501.5200, L101.9900, L503.6550 #### [facility] [address] [place], [place], [phone] Hematocrit (Bld) [Volume fraction] 41.6 % Normal 40-54 [facility] Comment on above: Order Comment: Order Date: 09/25/24 Order Info: [id number] - CBC Order Info: 07381-9 - SED Performed By: #### L 500.2500, L509.1000, L503.6150, L100.0500, L501.5200, L101.9900, L503.6550 #### [facility] [address] [place], [address] Hemoglobin (Bld) [Mass/Vol] 14.2 g/dL Normal 13.0-16.5 [facility] Comment on above: Order Comment: Order Date: 09/25/24 Order Info: [id number] - CBC Order Info: 96331-3 - SED Performed By: #### L 500.2500, L509.1000, L503.6150, L100.0500, L501.5200, L101.9900, L503.6550 #### [facility] [address] [place], [address] MCH (RBC) [Entitic mass] 32.6 pg High 27.0-32.0 [facility] Comment on above: Order Comment: Order Date: 09/25/24 Order Info: 81787-7 - CBC Order Info: 86505-6 - SED Performed By: #### L 500.2500, L509.1000, L503.6150, L100.0500, L501.5200, L101.9900, L503.6550 #### [facility] [address] [place], [address] MCHC (RBC) [Mass/Vol] 34.1 g/dL Normal 32-36 [facility] Comment on above: Order Comment: Order Date: 09/25/24 Order Info: [id number] - CBC Order Info: 64647-7 - SED Performed By: #### L 500.2500, L509.1000, L503.6150, L100.0500, L501.5200, L101.9900, L503.6550 #### [facility] [address] [place], [address] MCV (RBC) [Entitic vol] 95.6 fL High 80-94 [facility] Comment on above: Order Comment: Order Date: 09/25/24 Order Info: [id number] - CBC Order Info: 75679-3 - SED Performed By: #### L 500.2500, L509.1000, L503.6150, L100.0500, L501.5200, L101.9900, L503.6550 #### [facility] [address] [place], [address] Platelet mean volume (Bld) [Entitic vol] 11.0 fL Normal 6.2-12.0 [facility] Comment on above: Order Comment: Order Date: 09/25/24 Order Info: 22965-1 - CBC Order Info: 27794-4 - SED Performed By: #### L 500.2500, L509.1000, L503.6150, L100.0500, L501.5200, L101.9900, L503.6550 #### [facility] [address] [place], [address] Platelets (Bld) [#/Vol] 189 10*3/uL Normal 150-450 [facility] Comment on above: Order Comment: Order Date: 09/25/24 Order Info: 53310-0 - CBC Order Info: 96841-5 - SED Performed By: #### L 500.2500, L509.1000, L503.6150, L100.0500, L501.5200, L101.9900, L503.6550 #### [facility] [address] [place], [address] RBC (Bld) [#/Vol] 4.35 10*6/uL Low 4.6-6.2 [facility] Comment on above: Order Comment: Order Date: 09/25/24 Order Info: [id number] - CBC Order Info: 47808-4 - SED Performed By: #### L 500.2500, L509.1000, L503.6150, L100.0500, L501.5200, L101.9900, L503.6550 #### [facility] [address] [facility] [place], [address] RDW SD 59.6 fl High 35.1-43.9 [facility] Comment on above: Order Comment: Order Date: 09/25/24 Order Info: [id number] - CBC Order Info: - SED Performed By: #### L 500.2500, L509.1000, L503.6150, L100.0500, L501.5200, L101.9900, L503.6550 #### [facility] [address] [facility] [place], [address] WBC (Bld) [#/Vol] 6.1 10*3/uL Normal 4.4-11.0 [facility] Comment on above: Order Comment: Order Date: 09/25/24 Order Info: [id number] - CBC Order Info: - SED Performed By: #### L 500.2500, L509.1000, L503.6150, L100.0500, L501.5200, L101.9900, L503.6550 #### [facility] [address] [facility] [place], [address] Carbon dioxide, total [Moles /volume] in Central venous bloodOrdered By: Daksha Turner on 09-25-2024 CO2 [Moles/Vol] 23.7 mmol/L 21.0-32.0 [facility] Cardiovascular stress test r eportOrdered By: Moises Gaona on 09-25-2024 Study report [facility] [address] [place] [address] MR#: [id number] Acct: [id number] Name: RENATAYEFRI RESHMA Rep #: [id number] : 1965 59 From: Moises Gaona MD Primary Care: Dr. Daksha Turner MD Status: REG CLI Referring Dr: Gini Couch NP OFFICE MACHINE MECHANIC-C Sex: M AA Stress Test Report Pharmacologic [...] 175 Date _ Moises Gaona MD CC: OFFICE MACHINE MECHANIC-C Gini Couch; Dr. Daksha Turner MD ~ Date Dictated: 09/25/241745 Date Transcribed: 09/25/241745 Credit Card Interviewer: [place] Signed [facility] Work Phone: Chloride assayOrdered By: Sejal Turner on 09-25-2024 Chloride [Moles/Vol] 102 mmol/L 98-108 [facility] Echo Completeon 09-25-2024 Echo Complete [facility] [address] [place] [address] Echo Complete 09/24/242019 MR#: [id number] Acct: [id number] Name: YEFRI YANEZ Rep #: [id number] : 1965 59 From: Moises Gaona MD Attending Dr: Gini Couch NP-C Status: [facility] Ordering Dr: Gini Couch NP OFFICE MACHINE MECHANIC-C Date: 09/25/24 Location: [facility] Sex: M AA Admitted: Reason For Study [...] MD Date Dictated: 09/24/242019 Date Transcribed: 09/25/241728 Credit Card Interviewer: Signed Normal [facility] Echocardiogram study reportO rdered By: Moises Gaona on 09-25-2024 Study report [facility] [address] [place] [address] Echo Complete 09/24/242019 MR#: [id number] Acct: [id number] Name: YEFRI YANEZ Rep #:[id number] : 1965 59 From: Moises Scott Attending Dr: JARVIS Valenzuela tatus: REG CLI Ordering Dr: Gini Couch NP Syd e: 09/25/24 Location: [facility] Sex: M AA Admitted: Reason For Study [...] 09/25/241728 Date _ Moises Gaona MD CC: OFFICE MACHINE MECHANIC-C Gini Couch; Dr. Daksha Turner MD ~ Date Dictated: 09/24/242019 Date Transcribed: 09/25/241728 Credit Card Interviewer: Signed [facility] Work Phone: Erythrocyte Sed Rateon 09-25 SED RATE 30 mm/hr High 0-20 [facility] Comment on above: Order Comment: Order Date: 09/25/24 Order Info: [id number] - CBC Order Info: [id number] - SED Performed By: #### L 500.2500, L509.1000, L503.6150, L100.0500, L501.5200, L101.9900, L503.6550 #### [facility] [address] [place], [place], [address] Erythrocyte distribution wid th ratioOrdered By: Daksha Turner on 09-25-2024 Erythrocyte distribution width (RBC) [Ratio] 17.0 % High 11.6-14.6 [facility] Erythrocyte distribution wid th standard deviationOrdered By: Daksha Turner on 09-25-2024 Erythrocyte distribution width (RBC) [Ratio] 59.6 fl High 35.1-43.9 [facility] Erythrocyte sedimentation ra teOrdered By: Daksha Turner on 09-25-2024 ESR (Bld) [Velocity] 30 mm/h High 0-20 [facility] Ferritinon 09-25-2024 Ferritin [Mass/Vol] 590 ng/mL High 37-417 [facility] Comment on above: Order Comment: Order Date: 09/25/24Order Info: 0667-1 - BMPOrder Info: [id number] - MGOrder Info: 2498-4 - FEOrder Info: [id number] - MARTIN Performed By: #### L 500.2500, L509.1000, L503.6150, L100.0500, L501.5200, L101.9900, L503.6550 ####[facility] [address] [place], [place], [id number] Glomerular filtration rate ( GFR) estimation/1.73 sq m using serum, plasma, or whole bOrdered By: Daksha Turner on 09-25-2024 GFR/1.73 sq M.predicted among non-blacks MDRD (S/P/Bld) [Vol rate/Area] 35 mL/min/{1.73_m2} Low >60 [facility] Comment on above: mL/min/1.73m2 CKD-EP I Creatinine Equation (2020) Hematocrit Auto (Bld) [Volum e fraction]Ordered By: Daksha Turner on 09-25-2024 Hematocrit (Bld) [Volume fraction] 41.6 % 40-54 [facility] Hemoglobin measurementOrdere d By: Daksha Turner on 09-25-2024 Hemoglobin (Bld) [Mass/Vol] 14.2 g/dL 13.0-16.5 [facility] Ironon 09-25-2024 Iron [Mass/Vol] 115 ug/dL Normal 65-175 [facility] Comment on above: Order Comment: Order Date: 09/25/24 Order Info: [id number] - BMP Order Info: [id number] - MG Order Info: [id number] - FE Order Info: [id number] - MARTIN Performed By: #### L 500.2500, L509.1000, L503.6150, L100.0500, L501.5200, L101.9900, L503.6550 #### [facility] [address] [place], [address] Iron measurement (mass/mass) Ordered By: Daksha Turner on 09-25-2024 Iron (Unsp spec) [Mass/Mass] 115 ug/dL 65-175 [facility] MCV (mean corpuscular volume ) determinationOrdered By: Daksha Turner on 09-25-2024 MCV (RBC) [Entitic vol] 95.6 fL High 80-94 [facility] Magnesiumon 09-25-2024 Magnesium [Mass/Vol] 1.9 mg/dL Normal 1.5-2.2 [facility] Comment on above: Order Comment: Order Date: 09/25/24 Order Info: [id number] - BMP Order Info: [id number] - MG Order Info: [id number] - FE Order Info: [id number] - MARTIN Performed By: #### L 500.2500, L509.1000, L503.6150, L100.0500, L501.5200, L101.9900, L503.6550 #### [facility] [address] [facility] [place], [place], [phone] Magnesium measurement (mass/ volume)Ordered By: Daksha Turner on 09-25-2024 Magnesium (Unsp spec) [Mass/Vol] 1.9 mg/dL 1.5-2.2 [facility] Mean corpuscular hemoglobin (MCH) determinationOrdered By: Daksha Turner on 09-25-2024 MCH (RBC) [Entitic mass] 32.6 pg High 27.0-32.0 [facility] Mean corpuscular hemoglobin concentration (MCHC) determinationOrdered By: Daksha Turner on 09-25-2024 MCHC (RBC) [Mass/Vol] 34.1 g/dL 32-36 [facility] Mean platelet volume determi nationOrdered By: Daksha Turner on 09-25-2024 Platelet mean volume (Bld) [Entitic vol] 11.0 fL 6.2-12.0 [facility] PTHINon 09-25-2024 PTH 242 pg/mL High 11-61 [facility] Comment on above: Order Comment: Order Date: 09/25/24 Order Info: [id number] - PTHIN Performed By: #### L 500.2500, L509.1000, L503.6150, L100.0500, L501.5200, L101.9900, L503.6550 #### [facility] Laboratory [facility] [address] [place], [place], [id number] Platelet countOrdered By: Sejal Turner on 09-25-2024 Platelets (Bld) [#/Vol] 189 10*3/uL 150-450 [facility] Potassium measurement (mass/ volume)Ordered By: Daksha Turner on 09-25-2024 Potassium (Unsp spec) [Mass/Vol] 4.5 mmol/L 3.3-5.1 [facility] RBC Auto (Bld) [#/Vol]Ordere d By: Daksha Turner on 09-25-2024 RBC (Bld) [#/Vol] 4.35 10*6/uL Low 4.6-6.2 [facility] Serum creatinine measurement (mass/volume)Ordered By: Daksha Turner on 09-25-2024 Creatinine [Mass/Vol] 2.11 mg/dL High 0.70-1.20 [facility] Serum glucose measurement (m ass/volume)Ordered By: Daksha Turner on 09-25-2024 Glucose [Mass/Vol] 99 mg/dL 70-99 [facility] Serum or plasma calcium cory urement (mass/volume)Ordered By: Daksha Turner on 09-25-2024 Calcium [Mass/Vol] 9.7 mg/dL 7.6-11.0 [facility] Serum or plasma ferritin meliton surement (mass/volume)Ordered By: Daksha Turner on 09-25-2024 Ferritin [Mass/Vol] 590 ng/mL High 37-417 [facility] Serum or plasma urea nitroge n measurement (mass/volume)Ordered By: Daksha Turner on 09-25-2024 Urea nitrogen [Mass/Vol] 25 mg/dL High 4-19 [facility] Sodium levelOrdered By: Shawna melina Johnny on 09-25-2024 Sodium [Moles/Vol] 136 mmol/L 133-145 [facility] Stress Reporton 09-25-2024 Stress Report [facility] Cardiovascular Services [address] [place] [address] MR#: [id number] Acct: [id number] Name: YEFRI YANEZ Rep #: [id number] : 1965 59 From: Moises Gaona MD Primary Care: Dr. Daksha Turner MD Status: REG CLI Referring Dr: Gini Couch NP OFFICE MACHINE MECHANIC-C Sex: M A A Stress Test Report [...] MD Date Dictated: 09/25/241745 Date Transcribed: 09/25/241745 Credit Card Interviewer: [place] Signed Normal [facility] Vitamin B12on 09-25-2024 Cobalamin (Vitamin B12) [Mass/Vol] 490 pg/mL Normal 180-914 [facility] Comment on above: Order Comment: Order Date: 09/25/24 Order Info: [id number] - BMP Order Info: [id number] - MG Order Info: [id number] - Order Info: [id number] - MARTIN Performed By: #### L 503.0106, L506.1001 #### [facility] [address] [place], [place], [address] Vitamin B12 ser/plasOrdered By: Daksha Turner on 09-25-2024 Cobalamin (Vitamin B12) [Mass/Vol] 490 pg/mL 180-914 [facility] Vitamin D,25 Hydroxyon 09-25 Vitamin D 25-OH 16.2 ng/mL Low 30-100 [facility] Comment on above: Order Comment: Order Date: 09/25/24 Order Info: [id number] - BMP Order Info: [id number] - MG Order Info: [id number] - Order Info: [id number] - MARTIN Result Comment: Constanza min D Status Deficiency: <20 ng/mL (50nmol/L) Insufficiency: 20-30 ng/mL (50-75 nmol/L) Sufficiency: 30-100 ng/mL (75-250 nmol/L) Toxicity: >100 ng/mL (>250 nmol/L) Performed By: #### L 503.0106, L506.1001 #### [facility] [address] [place], [address] White blood cell (WBC) count Ordered By: Daksha Turner on 09-25-2024 WBC (Bld) [#/Vol] 6.1 10*3/uL 4.4-11.0 [facility] Absolute lymphocyte countOrd ered By: Gini Couch on 08-14-2024 Lymphocytes Auto (Unsp spec) [#/Vol] 1.02 10*3/uL 0.83-4.51 [facility] Absolute neutrophil countOrd ered By: Gini Couch on 08-14-2024 Neutrophils (Bld) [#/Vol] 3.6 10*3/uL 2.0-7.7 [facility] Anion gap in Serum or Plasma Ordered By: Gini Couch on 08-14-2024 Anion gap [Moles/Vol] 10 mmol/L 5-15 [facility] Automated lymphocyte count a s percentage of total leukocytesOrdered By: Gini Couch on 08-14-2024 Lymphocytes/100 WBC Auto (Unsp spec) 18.9 % Low 19-41 [facility] BUN/creatinine ratioOrdered By: Gini Couch on 08-14-2024 Urea nitrogen/Creatinine [Mass ratio] 9.5 mg/mg Low 10-20 [facility] Basic Metabolic Profile (BMP )on 08-14-2024 BUN/CRE 9.5 RATIO Low 10-20 [facility] Comment on above: Performed By: #### L 500.2500, L501.9520, L501.5200, L100.0100 ####[facility] [address] [place], [address] Calcium [Mass/Vol] 9.5 mg/dL Normal 7.6-11.0 [facility] Comment on above: Performed By: #### L 500.2500, L501.9520, L501.5200, L100.0100 ####[facility] [address] [place], [address] Chloride [Moles/Vol] 102 mmol/L Normal 98-108 [facility] Comment on above: Performed By: #### L 500.2500, L501.9520, L501.5200, L100.0100 ####[facility] [address] [place], [address] CO2 [Moles/Vol] 26.2 mmol/L Normal 21.0-32.0 [facility] Comment on above: Performed By: #### L 500.2500, L501.9520, L501.5200, L100.0100 ####[facility] [address] [place], [address] Creatinine [Mass/Vol] 2.22 mg/dL High 0.70-1.20 [facility] Comment on above: Performed By: #### L 500.2500, L501.9520, L501.5200, L100.0100 ####[facility] [address] [place], [address] GAP 10 Normal 5-15 [facility] Comment on above: Performed By: #### L 500.2500, L501.9520, L501.5200, L100.0100 ####[facility] [address] [place], [address] GFR/1.73 sq M.predicted among non-blacks MDRD (S/P/Bld) [Vol rate/Area] 33 mL/min/{1.73_m2} Low >60 [facility] Comment on above: Result Comment: mL/m in/1.73m2 CKD-EPI Creatinine Equation (2020) Performed By: #### L 500.2500, L501.9520, L501.5200, L100.0100 ####[facility] [address] [place], [address] Glucose [Mass/Vol] 101 mg/dL High 70-99 [facility] Comment on above: Performed By: #### L 500.2500, L501.9520, L501.5200, L100.0100 ####[facility] [address] [place], [address] Potassium [Moles/Vol] 4.7 mmol/L Normal 3.3-5.1 [facility] Comment on above: Performed By: #### L 500.2500, L501.9520, L501.5200, L100.0100 ####[facility] [address] [place], [address] Sodium [Moles/Vol] 138 mmol/L Normal 133-145 [facility] Comment on above: Performed By: #### L 500.2500, L501.9520, L501.5200, L100.0100 ####[facility] [address] [place], [address] Urea nitrogen [Mass/Vol] 21 mg/dL High 4-19 [facility] Comment on above: Performed By: #### L 500.2500, L501.9520, L501.5200, L100.0100 ####[facility] [address] [place], [address] Basophil percentageOrdered B y: Gini Couch on 08-14-2024 Basophils/100 WBC (Bld) 0.4 % 0-1 [facility] CBC W/Diff, Automatedon Absolute Lymph 1.02 X10 3/uL Normal 0.83-4.51 [facility] Comment on above: Performed By: #### L 500.2500, L501.9520, L501.5200, L100.0100 ####[facility] [address] [place], [address] Absolute Neut 3.6 X10 3/uL Normal 2.0-7.7 [facility] Comment on above: Performed By: #### L 500.2500, L501.9520, L501.5200, L100.0100 ####[facility] [address] [place], [address] Basophils/100 WBC (Bld) 0.4 % Normal 0-1 [facility] System Comment on above: Performed By: #### L 500.2500, L501.9520, L501.5200, L100.0100 ####[facility] [address] [place], [address] Eosinophils/100 WBC (Bld) 2.2 % Normal 0-5 [facility] Comment on above: Performed By: #### L 500.2500, L501.9520, L501.5200, L100.0100 ####[facility] [address] [place], [address] Erythrocyte distribution width (RBC) [Ratio] 16.6 % High 11.6-14.6 [facility] Comment on above: Performed By: #### L 500.2500, L501.9520, L501.5200, L100.0100 ####[facility] [address] [place], [address] Hematocrit (Bld) [Volume fraction] 41.7 % Normal 40-54 [facility] Comment on above: Performed By: #### L 500.2500, L501.9520, L501.5200, L100.0100 ####[facility] [address] [place], [address] Hemoglobin (Bld) [Mass/Vol] 13.9 g/dL Normal 13.0-16.5 [facility] Comment on above: Performed By: #### L 500.2500, L501.9520, L501.5200, L100.0100 ####[facility] [address] [place], [address] IG% 0.200 Normal 0.0-0.9 [facility] Comment on above: Result Comment: IG% - Immature Granulocytes (promyelocytes, myelocytes and metamyelocytes) > 1% indicates that a LEFT SHIFT is Present. Performed By: #### L 500.2500, L501.9520, L501.5200, L100.0100 ####[facility] [address] [place], [address] Lymphocytes/100 WBC (Bld) 18.9 % Low 19-41 [facility] Comment on above: Performed By: #### L 500.2500, L501.9520, L501.5200, L100.0100 ####[facility] [address] [place], [address] MCH (RBC) [Entitic mass] 32.5 pg High 27.0-32.0 [facility] Comment on above: Performed By: #### L 500.2500, L501.9520, L501.5200, L100.0100 ####[facility] [address] [place], [address] MCHC (RBC) [Mass/Vol] 33.3 g/dL Normal 32-36 [facility] Comment on above: Performed By: #### L 500.2500, L501.9520, L501.5200, L100.0100 ####[facility] [address] [place], [address] MCV (RBC) [Entitic vol] 97.4 fL High 80-94 [facility] Comment on above: Performed By: #### L 500.2500, L501.9520, L501.5200, L100.0100 ####[facility] [address] [place], [address] Monocytes/100 WBC (Bld) 11.3 % High 0-10 [facility] Comment on above: Performed By: #### L 500.2500, L501.9520, L501.5200, L100.0100 ####[facility] [address] [place], [address] Neutrophils/100 WBC (Bld) 67.0 % Normal 47-70 [facility] Comment on above: Performed By: #### L 500.2500, L501.9520, L501.5200, L100.0100 ####[facility] [address] [place], [address] Nucleated RBC (Bld) [#/Vol] 0 10*3/uL Normal 0-5 [facility] Comment on above: Performed By: #### L 500.2500, L501.9520, L501.5200, L100.0100 ####[facility] [address] [place], [address] Platelet mean volume (Bld) [Entitic vol] 10.4 fL Normal 6.2-12.0 [facility] Comment on above: Performed By: #### L 500.2500, L501.9520, L501.5200, L100.0100 ####[facility] [address] [place], [address] Platelets (Bld) [#/Vol] 209 10*3/uL Normal 150-450 [facility] Comment on above: Performed By: #### L 500.2500, L501.9520, L501.5200, L100.0100 ####[facility] [address] [place], [address] RBC (Bld) [#/Vol] 4.28 10*6/uL Low 4.6-6.2 [facility] Comment on above: Performed By: #### L 500.2500, L501.9520, L501.5200, L100.0100 ####[facility] [address] [place], [address] RDW SD 59.1 fl High 35.1-43.9 [facility] Comment on above: Performed By: #### L 500.2500, L501.9520, L501.5200, L100.0100 ####[facility] [address] [place], [address] WBC (Bld) [#/Vol] 5.4 10*3/uL Normal 4.4-11.0 [facility] Comment on above: Performed By: #### L 500.2500, L501.9520, L501.5200, L100.0100 ####[facility] [address] [place], [place], [address] Carbon dioxide, total [Moles /volume] in Central venous bloodOrdered By: Gini Couch on 08-14-2024 CO2 [Moles/Vol] 26.2 mmol/L 21.0-32.0 [facility] Cardiology Visit Reporton Cardiology Visit Report [facility] [address] [place], [place] [address] OFFICE VISIT Date of Service: 08/14/24 MR#: [id number] Acct: [id number] Name: YEFRI YANEZ Rep #: [id number] : 1965 Provider: JARVIS campos Age/Sex: 59/M Location[place] [facility] Status: Signed HPI HPI History of [...] the care of the oncologist here at [facility]. He had presented to the hospital with [...] a DC cardioversion at the [facility] in September 2021. He had previously been seeing a instructor trainer canine service in the [facility]. During this admission to the hospital in May 2022 his medications were optimized he was diuresed his creatinine actually improved and he was subsequently discharged to find a 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 He also had a history of atrial [...] 97 Intake Visit Reasons: 6 M FU [employer] Required: No Is patient in pain?: No [...] (more content not included)... Normal [facility] Chloride assayOrdered By: Eduardo Couch on 08-14-2024 Chloride [Moles/Vol] 102 mmol/L 98-108 [facility] Eosinophil percentageOrdered By: Gini Couch on 08-14-2024 Eosinophils/100 WBC (Bld) 2.2 % 0-5 [facility] Erythrocyte distribution wid th ratioOrdered By: Gini Couch on 08-14-2024 Erythrocyte distribution width (RBC) [Ratio] 16.6 % High 11.6-14.6 [facility] Erythrocyte distribution wid th standard deviationOrdered By: Gini Couch on 08-14-2024 Erythrocyte distribution width (RBC) [Ratio] 59.1 fl High 35.1-43.9 [facility] Glomerular filtration rate ( GFR) estimation/1.73 sq m using serum, plasma, or whole bOrdered By: Gini Couch on 08-14-2024 GFR/1.73 sq M.predicted among non-blacks MDRD (S/P/Bld) [Vol rate/Area] 33 mL/min/{1.73_m2} Low >60 [facility] Comment on above: mL/min/1.73m2 CKD-EP I Creatinine Equation (2020) Hematocrit Auto (Bld) [Volum e fraction]Ordered By: Gini Couch on 08-14-2024 Hematocrit (Bld) [Volume fraction] 41.7 % 40-54 [facility] Hemoglobin measurementOrdere d By: Gini Couch on 08-14-2024 Hemoglobin (Bld) [Mass/Vol] 13.9 g/dL 13.0-16.5 [facility] Immature granulocytes/100 WB C Auto (Bld)Ordered By: Gini Couch on 08-14-2024 Immature granulocytes/100 WBC (Bld) 0.200 % 0.0-0.9 [facility] Comment on above: IG% - Immature Granu locytes (promyelocytes, myelocytes and metamyelocytes) > 1% indicates that a LEFT SHIFT is Present. MCV (mean corpuscular volume ) determinationOrdered By: Gini Couch on 08-14-2024 MCV (RBC) [Entitic vol] 97.4 fL High 80-94 [facility] Magnesiumon 08-14-2024 Magnesium [Mass/Vol] 2.3 mg/dL High 1.5-2.2 [facility] Comment on above: Performed By: #### L 503.0106, L506.1001 #### [facility] [address] [place] [address], [address] Magnesium measurement (mass/ volume)Ordered By: Gini Couch on 08-14-2024 Magnesium (Unsp spec) [Mass/Vol] 2.3 mg/dL High 1.5-2.2 [facility] Mean corpuscular hemoglobin (MCH) determinationOrdered By: Gini Couch on 08-14-2024 MCH (RBC) [Entitic mass] 32.5 pg High 27.0-32.0 [facility] Mean corpuscular hemoglobin concentration (MCHC) determinationOrdered By: Gini Couch on 08-14-2024 MCHC (RBC) [Mass/Vol] 33.3 g/dL 32-36 [facility] Mean platelet volume determi nationOrdered By: Gini Couch on 08-14-2024 Platelet mean volume (Bld) [Entitic vol] 10.4 fL 6.2-12.0 [facility] Monocyte percentageOrdered B y: Gini Couch on 08-14-2024 Monocytes/100 WBC (Bld) 11.3 % High 0-10 [facility] Neutrophil percentageOrdered By: Gini Couch on 08-14-2024 Neutrophils/100 WBC (Bld) 67.0 % 47-70 [facility] Nucleated red blood cell per centageOrdered By: Gini Couch on 08-14-2024 Nucleated RBC/100 WBC (Bld) [Ratio] 0 % 0-5 [facility] Platelet countOrdered By: Eduardo Couch on 08-14-2024 Platelets (Bld) [#/Vol] 209 10*3/uL 150-450 [facility] Potassium measurement (mass/ volume)Ordered By: Gini Couch on 08-14-2024 Potassium (Unsp spec) [Mass/Vol] 4.7 mmol/L 3.3-5.1 [facility] RBC Auto (Bld) [#/Vol]Ordere d By: Gini Couch on 08-14-2024 RBC (Bld) [#/Vol] 4.28 10*6/uL Low 4.6-6.2 [facility] Serum creatinine measurement (mass/volume)Ordered By: Gini Couch on 08-14-2024 Creatinine [Mass/Vol] 2.22 mg/dL High 0.70-1.20 [facility] Serum glucose measurement (m ass/volume)Ordered By: Gini Couch on 08-14-2024 Glucose [Mass/Vol] 101 mg/dL High 70-99 [facility] Serum or plasma calcium cory urement (mass/volume)Ordered By: Gini Couch on 08-14-2024 Calcium [Mass/Vol] 9.5 mg/dL 7.6-11.0 [facility] Serum or plasma urea nitroge n measurement (mass/volume)Ordered By: Gini Couch on 08-14-2024 Urea nitrogen [Mass/Vol] 21 mg/dL High 4-19 [facility] Sodium levelOrdered By: Mercedes Couch on 08-14-2024 Sodium [Moles/Vol] 138 mmol/L 133-145 [facility] TSH DL <= 0.005 mIU/L QnOrde red By: Gini Couch on 08-14-2024 TSH Qn 1.940 uIU/mL 0.300-4.20 0 [facility] Thyroid Stim Hormone (TSH)on 08-14-2024 TSH 1.940 uIU/mL Normal 0.300-4.20 0 [facility] Comment on above: Performed By: #### L 503.0106, L506.1001 #### [facility] [address] [place], [address] White blood cell (WBC) count Ordered By: Gini Couch on 08-14-2024 WBC (Bld) [#/Vol] 5.4 10*3/uL 4.4-11.0 [facility] Absolute lymphocyte countOrd ered By: Dangelo Botello on 06-20-2024 Lymphocytes Auto (Unsp spec) [#/Vol] 1.11 10*3/uL 0.83-4.51 [facility] Absolute neutrophil countOrd ered By: Dangelo Botello on 06-20-2024 Neutrophils (Bld) [#/Vol] 4.3 10*3/uL 2.0-7.7 [facility] Anion gap in Serum or Plasma Ordered By: Dangelo Botello on 06-20-2024 Anion gap [Moles/Vol] 10 mmol/L 5-15 [facility] Automated lymphocyte count a s percentage of total leukocytesOrdered By: Dangelo Botello on 06-20-2024 Lymphocytes/100 WBC Auto (Unsp spec) 18.8 % Low 19-41 [facility] BUN/creatinine ratioOrdered By: Dangelo Botello on 06-20-2024 Urea nitrogen/Creatinine [Mass ratio] 8.0 mg/mg Low 10-20 [facility] Basophil percentageOrdered B y: Dangelo Botello on 06-20-2024 Basophils/100 WBC (Bld) 0.3 % 0-1 [facility] Bilirubin, totalOrdered By: Dangelo Botello on 06-20-2024 Bilirubin [Mass/Vol] 0.39 mg/dL 0.00-1.30 [facility] CBC W/Diff, Automatedon 06-06 Absolute Lymph 1.11 X10 3/uL Normal 0.83-4.51 [facility] Comment on above: Performed By: #### L 504.2610, L500.4050, L100.0100 ####[facility] [address] [place], [address] Absolute Neut 4.3 X10 3/uL Normal 2.0-7.7 [facility] Comment on above: Performed By: #### L 504.2610, L500.4050, L100.0100 ####[facility] [address] [place], [address] Basophils/100 WBC (Bld) 0.3 % Normal 0-1 [facility] Comment on above: Performed By: #### L 504.2610, L500.4050, L100.0100 ####[facility] [address] [place], [address] Eosinophils/100 WBC (Bld) 0.5 % Normal 0-5 [facility] Comment on above: Performed By: #### L 504.2610, L500.4050, L100.0100 ####[facility] [address] [place], [address] Erythrocyte distribution width (RBC) [Ratio] 17.2 % High 11.6-14.6 [facility] Comment on above: Performed By: #### L 504.2610, L500.4050, L100.0100 ####[facility] [address] [place], [address] Hematocrit (Bld) [Volume fraction] 41.0 % Normal 40-54 [facility] Comment on above: Performed By: #### L 504.2610, L500.4050, L100.0100 ####[facility] [address] [place], [address] Hemoglobin (Bld) [Mass/Vol] 13.8 g/dL Normal 13.0-16.5 [facility] Comment on above: Performed By: #### L 504.2610, L500.4050, L100.0100 ####[facility] [address] [place], [address] IG% 1.400 High 0.0-0.9 [facility] Comment on above: Result Comment: IG% - Immature Granulocytes (promyelocytes, myelocytes and metamyelocytes) > 1% indicates that a LEFT SHIFT is Present. Performed By: #### L 504.2610, L500.4050, L100.0100 ####[facility] [address] [place], [address] Lymphocytes/100 WBC (Bld) 18.8 % Low 19-41 [facility] Comment on above: Performed By: #### L 504.2610, L500.4050, L100.0100 ####[facility] [address] [place], [address] MCH (RBC) [Entitic mass] 33.3 pg High 27.0-32.0 [facility] Comment on above: Performed By: #### L 504.2610, L500.4050, L100.0100 ####[facility] [address] [place], [address] MCHC (RBC) [Mass/Vol] 33.7 g/dL Normal 32-36 [facility] Comment on above: Performed By: #### L 504.2610, L500.4050, L100.0100 ####[facility] [address] [place], [address] MCV (RBC) [Entitic vol] 99.0 fL High 80-94 [facility] Comment on above: Performed By: #### L 504.2610, L500.4050, L100.0100 ####[facility] [address] [place], [address] Monocytes/100 WBC (Bld) 6.9 % Normal 0-10 [facility] Comment on above: Performed By: #### L 504.2610, L500.4050, L100.0100 ####[facility] [address] [place], [address] Neutrophils/100 WBC (Bld) 72.1 % High 47-70 [facility] Comment on above: Performed By: #### L 504.2610, L500.4050, L100.0100 ####[facility] [address] [place], [address] Nucleated RBC (Bld) [#/Vol] 0 10*3/uL Normal 0-5 [facility] Comment on above: Performed By: #### L 504.2610, L500.4050, L100.0100 ####[facility] [address] [place], [address] Platelet mean volume (Bld) [Entitic vol] 10.8 fL Normal 6.2-12.0 [facility] Comment on above: Performed By: #### L 504.2610, L500.4050, L100.0100 ####[facility] [address] [place], [address] Platelets (Bld) [#/Vol] 233 10*3/uL Normal 150-450 [facility] Comment on above: Performed By: #### L 504.2610, L500.4050, L100.0100 ####[facility] [address] [place], [address] RBC (Bld) [#/Vol] 4.14 10*6/uL Low 4.6-6.2 [facility] Comment on above: Performed By: #### L 504.2610, L500.4050, L100.0100 ####[facility] [address] [place], [address] RDW SD 62.4 fl High 35.1-43.9 [facility] Comment on above: Performed By: #### L 504.2610, L500.4050, L100.0100 ####[facility] [address] [place], [address] WBC (Bld) [#/Vol] 5.9 10*3/uL Normal 4.4-11.0 [facility] Comment on above: Performed By: #### L 504.2610, L500.4050, L100.0100 ####[facility] [address] [place], [address] Carbon dioxide, total [Moles /volume] in Central venous bloodOrdered By: Dangelo Botello on 06-20-2024 CO2 [Moles/Vol] 26.0 mmol/L 21.0-32.0 [facility] Chloride assayOrdered By: Raeann Botello on 06-20-2024 Chloride [Moles/Vol] 100 mmol/L 98-108 [facility] Comprehensive Metabolic Prof ilon 06-20-2024 Albumin [Mass/Vol] 4.0 g/dL Normal 3.4-4.8 [facility] Comment on above: Performed By: #### L 504.2610, L500.4050, L100.0100 ####[facility] [address] [place], [address] Albumin/Globulin [Mass ratio] 1.4 {ratio} Normal 0.9-2.4 [facility] Comment on above: Performed By: #### L 504.2610, L500.4050, L100.0100 ####[facility] [address] [place], [address] ALK PHOS 47 U/L Normal 40-129 [facility] Comment on above: Performed By: #### L 504.2610, L500.4050, L100.0100 ####[facility] [address] [place], [address] ALT [Catalytic activity/Vol] 47 U/L Normal <=46 [facility] Comment on above: Performed By: #### L 504.2610, L500.4050, L100.0100 ####[facility] [address] [place], [address] AST [Catalytic activity/Vol] 37 U/L Normal <=37 [facility] Comment on above: Performed By: #### L 504.2610, L500.4050, L100.0100 ####[facility] [address] [place], [address] Bilirubin [Mass/Vol] 0.39 mg/dL Normal 0.00-1.30 [facility] Comment on above: Performed By: #### L 504.2610, L500.4050, L100.0100 ####[facility] [address] [place], [address] BUN/CRE 8.0 RATIO Low 10-20 [facility] Comment on above: Performed By: #### L 504.2610, L500.4050, L100.0100 ####[facility] [address] [place], [address] Calcium [Mass/Vol] 9.7 mg/dL Normal 7.6-11.0 [facility] Comment on above: Performed By: #### L 504.2610, L500.4050, L100.0100 ####[facility] [address] [place], [address] Chloride [Moles/Vol] 100 mmol/L Normal 98-108 [facility] Comment on above: Performed By: #### L 504.2610, L500.4050, L100.0100 ####[facility] [address] [place], [address] CO2 [Moles/Vol] 26.0 mmol/L Normal 21.0-32.0 [facility] Comment on above: Performed By: #### L 504.2610, L500.4050, L100.0100 ####[facility] [address] [place], [address] Creatinine [Mass/Vol] 1.89 mg/dL High 0.70-1.20 [facility] Comment on above: Performed By: #### L 504.2610, L500.4050, L100.0100 ####[facility] [address] [place], [address] GAP 10 Normal 5-15 [facility] Comment on above: Performed By: #### L 504.2610, L500.4050, L100.0100 ####[facility] [address] [place], [address] GFR/1.73 sq M.predicted among non-blacks MDRD (S/P/Bld) [Vol rate/Area] 40 mL/min/{1.73_m2} Low >60 [facility] Comment on above: Result Comment: mL/m in/1.73m2 CKD-EPI Creatinine Equation (2020) Performed By: #### L 504.2610, L500.4050, L100.0100 ####[facility] [address] [place], [address] Globulin (S) [Mass/Vol] 2.8 g/dL Normal 2.2-4.[address] [facility] Comment on above: Performed By: #### L 504.2610, L500.4050, L100.0100 ####[facility] [address] [place], [address] Glucose [Mass/Vol] 97 mg/dL Normal 70-99 [facility] Comment on above: Performed By: #### L 504.2610, L500.4050, L100.0100 ####[facility] [address] [place], [address] Potassium [Moles/Vol] 4.5 mmol/L Normal 3.3-5.1 [facility] Comment on above: Performed By: #### L 504.2610, L500.4050, L100.0100 ####[facility] [address] [place], [address] Sodium [Moles/Vol] 136 mmol/L Normal 133-145 [facility] Comment on above: Performed By: #### L 504.2610, L500.4050, L100.0100 ####[facility] [address] [place], [address] T PROT 6.7 g/dL Normal 5.9-8.4 [facility] Comment on above: Performed By: #### L 504.2610, L500.4050, L100.0100 ####[facility] [address] [place], [address] Urea nitrogen [Mass/Vol] 15 mg/dL Normal 4-19 [facility] Comment on above: Performed By: #### L 504.2610, L500.4050, L100.0100 ####[facility] [address] [place], [address] Eosinophil percentageOrdered By: Dangelo Botello on 06-20-2024 Eosinophils/100 WBC (Bld) 0.5 % 0-5 [facility] Erythrocyte distribution wid th (RBC) [Ratio]Ordered By: Dangelo Botello on 06-20-2024 Erythrocyte distribution width (RBC) [Entitic vol] 62.4 fL High 35.1-43.9 [facility] Erythrocyte distribution wid th ratioOrdered By: Dangelo Botello on 06-20-2024 Erythrocyte distribution width (RBC) [Ratio] 17.2 % High 11.6-14.6 [facility] Erythrocyte distribution wid th standard deviationOrdered By: Dangelo Botello on 06-20-2024 Erythrocyte distribution width (RBC) [Ratio] 62.4 fl High 35.1-43.9 [facility] GFR/1.73 sq M.predicted martin g non-blacks MDRD (S/P/Bld) [Vol rate/Area]Ordered By: Dangelo Botello on 06-20-2024 Estimated GFR (MDRD) Non-Af Amer 40 Low >60 [facility] Comment on above: mL/min/1.73m2 CKD-EP I Creatinine Equation (2020) Glomerular filtration rate ( GFR) estimation/1.73 sq m using serum, plasma, or whole bOrdered By: Dangelo Botello on 06-20-2024 GFR/1.73 sq M.predicted among non-blacks MDRD (S/P/Bld) [Vol rate/Area] 40 mL/min/{1.73_m2} Low >60 [facility] Comment on above: mL/min/1.73m2 CKD-EP I Creatinine Equation (2020) Hematocrit Auto (Bld) [Volum e fraction]Ordered By: Dangelo Botello on 06-20-2024 Hematocrit (Bld) [Volume fraction] 41.0 % 40-54 [facility] Hemoglobin measurementOrdere d By: Dangelo Botello on 06-20-2024 Hemoglobin (Bld) [Mass/Vol] 13.8 g/dL 13.0-16.5 [facility] Immature granulocytes/100 WB C Auto (Bld)Ordered By: Dangelo Botello on 06-20-2024 Immature granulocytes/100 WBC (Bld) 1.400 % High 0.0-0.9 [facility] Comment on above: IG% - Immature Granu locytes (promyelocytes, myelocytes and metamyelocytes) > 1% indicates that a LEFT SHIFT is Present. LDHon 06-20-2024 LDH 249 U/L High 87-241 [facility] Comment on above: Order Comment: 1 Performed By: #### L 504.2610, L500.4050, L100.0100 ####[facility] [address] [place], [address] Laboratory - Chemistry and C hemistry - challengeOrdered By: Dangelo Botello on 06-20-2024 AST [Catalytic activity/Vol] 37 U/L <38 [facility] Lactate dehydrogenase (LDH) measurementOrdered By: Dangelo Botello on 06-20-2024 LDH [Catalytic activity/Vol] 249 U/L High 87-241 [facility] Lymphocytes Auto (Unsp spec) [#/Vol]Ordered By: Dangelo Botello on 06-20-2024 Lymphocytes (Bld) [#/Vol] 1.11 10*3/uL 0.83-4.51 [facility] Lymphocytes/100 WBC Auto (Un sp spec)Ordered By: Dangelo Botello on 06-20-2024 Lymphocytes/100 WBC (Bld) 18.8 % Low 19-41 [facility] MCV (mean corpuscular volume ) determinationOrdered By: Dangelo Botello on 06-20-2024 MCV (RBC) [Entitic vol] 99.0 fL High 80-94 [facility] Mean corpuscular hemoglobin (MCH) determinationOrdered By: Dangelo Botello on 06-20-2024 MCH (RBC) [Entitic mass] 33.3 pg High 27.0-32.0 [facility] Mean corpuscular hemoglobin concentration (MCHC) determinationOrdered By: Dangelo Botello on 06-20-2024 MCHC (RBC) [Mass/Vol] 33.7 g/dL 32-36 [facility] Mean platelet volume determi nationOrdered By: Dangelo Botello on 06-20-2024 Platelet mean volume (Bld) [Entitic vol] 10.8 fL 6.2-12.0 [facility] Monocyte percentageOrdered B y: Dangelo Botello on 06-20-2024 Monocytes/100 WBC (Bld) 6.9 % 0-10 [facility] Neutrophil percentageOrdered By: Dangelo Botello on 06-20-2024 Neutrophils/100 WBC (Bld) 72.1 % High 47-70 [facility] Nucleated red blood cell per centageOrdered By: Dangelo Botello on 06-20-2024 Nucleated RBC/100 WBC (Bld) [Ratio] 0 % 0-5 [facility] Oncology Visit Reporton 06-06 Oncology Visit Report [facility] [place] [address] OFFICE VISIT Date of Service: 06/20/24 1334 MR#: [id number] Acct: [id number] Name: YEFRI YANEZ Rep #: [id number] : 1965 From: Dangelo Botello MD Age/Sex: 59/M [place] [facility] [place] Status: Signed HPI Subjective Date of Service [...] for follow up after CT. Feeling well [facility] Medical History Abnormal chest x-ray Warfarin-induced coagulopathy [...] (more content not included)... Normal [facility] Platelet countOrdered By: Raeann Botello on 06-20-2024 Platelets (Bld) [#/Vol] 233 10*3/uL 150-450 [facility] Potassium (Unsp spec) [Mass/ Vol]Ordered By: Dangelo Botello on 06-20-2024 Potassium [Moles/Vol] 4.5 mmol/L 3.3-5.1 [facility] Potassium measurement (mass/ volume)Ordered By: Dangelo Botello on 06-20-2024 Potassium (Unsp spec) [Mass/Vol] 4.5 mmol/L 3.3-5.1 [facility] RBC Auto (Bld) [#/Vol]Ordere d By: Dangelo Botello on 06-20-2024 RBC (Bld) [#/Vol] 4.14 10*6/uL Low 4.6-6.2 [facility] Serum creatinine measurement (mass/volume)Ordered By: Dangelo Botello on 06-20-2024 Creatinine [Mass/Vol] 1.89 mg/dL High 0.70-1.20 [facility] Serum globulin measurementOr dered By: Dangelo Botello on 06-20-2024 Globulin (S) [Mass/Vol] 2.8 g/dL 2.2-4.2 [facility] Serum glucose measurement (m ass/volume)Ordered By: Dangelo Botello on 06-20-2024 Glucose [Mass/Vol] 97 mg/dL 70-99 [facility] Serum or plasma alanine stafford otransferase (ALT) measurementOrdered By: Dangelo Botello on 06-20-2024 ALT [Catalytic activity/Vol] 47 U/L <47 [facility] Serum or plasma albumin cory urement (mass/volume)Ordered By: Dangelo Botello on 06-20-2024 Albumin [Mass/Vol] 4.0 g/dL 3.4-4.8 [facility] Serum or plasma albumin/glob ulin mass ratioOrdered By: Dangelo Botello on 06-20-2024 Albumin/Globulin [Mass ratio] 1.4 {ratio} 0.9-2.4 [facility] Serum or plasma alkaline damaso sphatase measurementOrdered By: Dangelo Botello on 06-20-2024 ALP [Catalytic activity/Vol] 47 U/L 40-129 [facility] Serum or plasma calcium cory urement (mass/volume)Ordered By: Dangelo Botello on 06-20-2024 Calcium [Mass/Vol] 9.7 mg/dL 7.6-11.0 [facility] Serum or plasma urea nitroge n measurement (mass/volume)Ordered By: Dangelo Botello on 06-20-2024 Urea nitrogen [Mass/Vol] 15 mg/dL 4-19 [facility] Sodium levelOrdered By: Bruno Botello on 06-20-2024 Sodium [Moles/Vol] 136 mmol/L 133-145 [facility] Total proteinOrdered By: Jose Botello on 06-20-2024 Protein [Mass/Vol] 6.7 g/dL 5.9-8.4 [facility] White blood cell (WBC) count Ordered By: Dangelo Botello on 06-20-2024 WBC (Bld) [#/Vol] 5.9 10*3/uL 4.4-11.0 [facility] CREATININE FINGERSTICKon CREATININE WB < 1.0 Normal 0.70-1.30 [facility] Comment on above: Performed By: #### L 503.0106, L506.1001 #### [facility] Laboratory [address] [place], [address] EGFR WB > 60.0000 Normal >60 [facility] Comment on above: Performed By: #### L 503.0106, L506.1001 #### [facility] Laboratory [address] [place], [address] CT Chest, Abd, Pel w/Contras ton 06-13-2024 CT Chest, Abd, Pel w/Contrast [facility] Imaging Services [address] [place] [address] CT Chest, Abd, Pel w/Contrast MR#: [id number] Acct: [id number] Name: YEFRI YANEZ Rep #: [id number] : 1965 M 59 From: Carla Garcia MD PCP: Dr. Daksha Turner MD Status: REG CLI Study: CT Chest, Abd, Pel w/Contrast Date of Exam: Exam# [id number] Ordering Dr: Dangelo Botello MD PROCEDURE: CT [...] Daksha Turner MD; Dr. Dangelo Botello MD Credit Card Interviewer: Signed Normal [facility] Creatinine measurement at be dsideOrdered By: Dangelo Botello on 06-13-2024 Bedside Creatinine < 1.0 mg/dL 0.70-1.30 [facility] EGFROrdered By: Dangelo Botello on 06-13-2024 Bedside Estimated GFR (eGFR) > 60.0000 mL/min >60 [facility] GFR/1.73 sq M.predicted among non-blacks MDRD (S/P/Bld) [Vol rate/Area] mL/min/{1.73_m2} >60 [facility] 09-[id number] DOrdered By: Tangela Chiu on 03-22-2024 Vitamin D 25-Hydroxy 30.8 ng/mL [facility] Comment on above: Vitamin D 25(OH) Sta tus Range Deficiency <20 ng/mL (50nmol/L) Insufficiency 20 - 30 ng/mL (50 - 75 nmol/L) Sufficiency 30 - 100 ng/mL (75 - 250 nmol/L) Toxicity >100 ng/mL (>250 nmol/L) Blood urea nitrogen (BUN)/cr eatinine ratioOrdered By: Isidra Chiu on 03-22-2024 Urea nitrogen/Creatinine [Mass ratio] 10.8 mg/mg 10-20 [facility] Carbon dioxide measurementOr dered By: Isidra Chiu on 03-22-2024 CO2 [Moles/Vol] 26.0 mmol/L 21.0-32.0 [facility] Chloride measurementOrdered By: Isidra Chiu on 03-22-2024 Chloride [Moles/Vol] 107 mmol/L 98-107 [facility] Estimated glomerular filtrat ion rate (GFR) AmericanOrdered By: Isidra Chiu on 03-22-2024 Estimated GFR (MDRD) Amer 39 mL/min Low >60 [facility] Comment on above: GFR Calc Glomerular filtration rate ( GFR) estimationOrdered By: Isidra Chiu on 03-22-2024 Estimated GFR (MDRD) Non-Af Amer 32 mL/min Low >60 [facility] Comment on above: Non- GFR Calc Glucose measurementOrdered B y: Isidra Chiu on 03-22-2024 Glucose [Mass/Vol] 118 mg/dL High 74-106 [facility] Comment on above: Fasting Glucose resu lt from 100 to 125 mg/dL suggests IMPAIRED HOMEOSTASIS per A.D.A. criteria. Phosphorus measurementOrdere d By: Isidra Chiu on 03-22-2024 Phosphorus Level 2.6 mg/dL 2.5-4.9 [facility] Potassium measurementOrdered By: Isidra Chiu on 03-22-2024 Potassium [Moles/Vol] 4.3 mmol/L 3.5-5.1 [facility] Renal Profileon 03-22-2024 Albumin [Mass/Vol] 3.1 g/dL Low 3.2-5.0 [facility] Comment on above: Performed By: #### L 506.1000, L500.3600 ####[facility] [address] [place], [address] BUN/CRE 10.8 RATIO Normal 10-20 [facility] Comment on above: Performed By: #### L 506.1000, L500.3600 ####[facility] [address] [place], [address] CA,Total 8.3 mg/dL Low 8.5-10.1 [facility] Comment on above: Performed By: #### L 506.1000, L500.3600 ####[facility] [address] [place], [address] Chloride [Moles/Vol] 107 mmol/L Normal 98-107 [facility] Comment on above: Performed By: #### L 506.1000, L500.3600 ####[facility] [address] [place], [address] CO2 [Moles/Vol] 26.0 mmol/L Normal 21.0-32.0 [facility] Comment on above: Performed By: #### L 506.1000, L500.3600 ####[facility] [address] [place], [address] Creatinine [Mass/Vol] 2.22 mg/dL High 0.70-1.30 [facility] Comment on above: Result Comment: The validity of the calculated GFR GFRAA in patients over 70 years has not been determined. Clinical correlation is essential. Performed By: #### L 506.1000, L500.3600 ####[facility] [address] [place], [address] EST GFR - AA 39 mL/min Low >60 [facility] Comment on above: Result Comment: Afri can Macanese GFR Calc Performed By: #### L 506.1000, L500.3600 ####[facility] [address] [place], [address] GFR/1.73 sq M.predicted among non-blacks MDRD (S/P/Bld) [Vol rate/Area] 32 mL/min/{1.73_m2} Low >60 [facility] Comment on above: Result Comment: Non- GFR Calc Performed By: #### L 506.1000, L500.3600 ####[facility] [address] [place], [address] Glucose [Mass/Vol] 118 mg/dL High 74-106 [facility] Comment on above: Result Comment: Fast ing Glucose result from 100 to 125 mg/dL suggests IMPAIRED HOMEOSTASIS per A.D.A. criteria. Performed By: #### L 506.1000, L500.3600 ####[facility] [address] [place], [address] Phosphate [Mass/Vol] 2.6 mg/dL Normal 2.5-4.9 [facility] Comment on above: Performed By: #### L 506.1000, L500.3600 ####[facility] [address] [place], [address] Potassium [Moles/Vol] 4.3 mmol/L Normal 3.5-5.1 [facility] Comment on above: Performed By: #### L 506.1000, L500.3600 ####[facility] [address] [place], [address] Sodium [Moles/Vol] 138 mmol/L Normal 136-145 [facility] Comment on above: Performed By: #### L 506.1000, L500.3600 ####[facility] [address] [place], [address] Urea nitrogen [Mass/Vol] 24 mg/dL High 7-18 [facility] Comment on above: Performed By: #### L 506.1000, L500.3600 ####[facility] [address] [place], [address] Serum or plasma albumin cory urement (mass/volume)Ordered By: Isidra Chiu on 03-22-2024 Albumin [Mass/Vol] 3.1 g/dL Low 3.2-5.0 [facility] Serum or plasma calcium cory urement (mass/volume)Ordered By: Isidra Chiu on 03-22-2024 Calcium [Mass/Vol] 8.3 mg/dL Low 8.5-10.1 [facility] Serum or plasma creatinine m easurement (mass/volume)Ordered By: Isidra Chiu on 03-22-2024 Creatinine [Mass/Vol] 2.22 mg/dL High 0.70-1.30 [facility] Comment on above: The validity of the calculated GFR & GFRAA in patients over 70 years has not been determined. Clinical correlation is essential. Serum or plasma urea nitroge n measurement (mass/volume)Ordered By: Isidra Chiu on 03-22-2024 Urea nitrogen [Mass/Vol] 24 mg/dL High 7-18 [facility] Sodium levelOrdered By: Shawna Chiu on 03-22-2024 Sodium [Moles/Vol] 138 mmol/L 136-145 [facility] Vitamin D,25 Hydroxyon 03-22 Vitamin D 25-OH 30.8 ng/mL Normal [facility] Comment on above: Result Comment: Constanza min D 25(OH) Status Range Deficiency <20 ng/mL (50nmol/L) Insufficiency 20 - 30 ng/mL (50 - 75 nmol/L) Sufficiency 30 - 100 ng/mL (75 - 250 nmol/L) Toxicity >100 ng/mL (>250 nmol/L) Performed By: #### L 506.1000, L500.3600 ####[facility] [address] [facility]. [place], [place], [address] Low Dose CT Lung Screeningon 02-08-[address] Lung Screening [facility] Imaging Services [address] [place], [place] [address] Low Dose CT Lung Screening MR#: [id number] Acct: [id number] Name: YEFRI YANEZ Rep #: [id number] : 1965 M 59 From: Rony amador MD PCP: Dr. Daksha Turner MD Status: REG CLI Study: Low Dose CT Lung Screening Date of Exam: 02/07 Exam# [id number] Ordering Dr: Daksha Turner [id number] STUDY: LOW DOSE CT LUNG CANCER SCREENING [...] (more content not included)... Normal [facility] Sex Hormone-binding Globulin on 01-13-2024 SHBG 23.8 nmol/L Normal 19.3-76.4 [facility] Comment on above: Order Comment: Order Date: 09/25/24 Order Info: [id number] - BMP Order Info: [id number] - MG Order Info: 2498-4 - FE Order Info: 2276-4 - MARTIN Result Comment: Perf ormed at: - [facility] [address] [id number] [employer] Assistant: Elías Moreau PhD, Phone: [phone] Performed By: #### L 503.0108, L550.1008 #### [facility] Laboratory [address] [facility] [place], [place], [address] Abd Inc Decub and/or Erecton 01-11-2024 Abd Inc Decub and/or Erect [facility] Imaging Services [address] [place], [place] [address] Abd Inc Decub and/or Erect MR#: [id number] Acct: [id number] Name: YEFRI YANEZ Rep #: [id number] : 1965 M 59 From: Lul Peters MD PCP: Dr. Daksha Turner MD Status: [facility] Study: Abd Inc Decub and/or Erect Date of Exam: 01/10 Exam# [id number] Ordering Dr: Daksha Turner [id number] STUDY: X-RAY - ABDOMEN/PELVIS REASON FOR EXAM: [...] EST , CC: Dr. Daksha Turner MD Credit Card Interviewer: Signed Normal [facility] FSH and LHon 01-11-2024 FSH 3.4 mIU/mL Normal [facility] Comment on above: Order Comment: Order Date: 09/25/24 Order Info: [id number] - BMP Order Info: [id number] - MG Order Info: 2497-06 Order Info: 2275-06 - MARTIN Result Comment: NORMAL REFERENCE RANGES FEMALE FOLLICULAR 2.3 - 12.6 mIU/mL MID-CYCLE PEAK 5.2 - 17.5 mIU/mL LUTEAL 1.7 - 12.9 mIU/mL POST-MENOPAUSAL ON MHT 5.9 - 72.8 mIU/mL NOT ON MHT 12.7 - 132.2 mlU/mL MALE 0.7 - 10.8 mIU/mL Performed By: #### L 503.0106, L506.1001 #### [facility] Laboratory [address] [place] [address]. [place], [address] LH 4.5 mIU/mL [facility] Comment on above: Order Comment: Order Date: 09/25/24 Order Info: [id number] - BMP Order Info: [id number] - MG Order Info: 2497-06 - Order Info: 2275-06 - MARTIN Result Comment: NORMAL REFERENCE RANGES FEMALE FOLLICULAR 1.9 - 26.2 mIU/mL MID-CYCLE PEAK 22.8 - 76.1 mIU/mL LUTEAL 0.6 - 16.6 mIU/mL POST-MENOPAUSAL ON MHT 1.1 - 52.4 mIU/mL NOT ON MHT 8.6 - 61.8 mIU/mL MALE 1.2 - 10.6 mIU/mL Performed By: #### L 503.0106, L506.1001 #### [facility] [address] [place], [address] Testosterone, Serum Totalon 01-11-2024 Testosterone [Mass/Vol] 398.15 ng/dL Normal [facility] Comment on above: Order Comment: Order Date: 09/25/24 Order Info: 0667-1 - BMP Order Info: [id number] - MG Order Info: 2498-4 - FE [...] Performed By: #### Kenyon 503.0106, L506.1001 #### [facility] [address] [place], [address] L5000.0012on 12-25-2023 Vitamin B12 Normal [facility] Comment on above: Result Comment: TEST RESULTS LIMITS Vitamin B12 291 pg/mL 232-1245 [facility] ORIGINAL REPORT ON FILE IN LAB CONTAINS ADDITIONAL TEST SITE INFORMATION. Performed By: #### L 503.0106, L506.1001 #### [facility] [address] [place], [address] CBC-Complete Blood Cnt No Di ffon 12-22-2023 Erythrocyte distribution width (RBC) [Ratio] 16.7 % High 11.6-14.6 [facility] Comment on above: Order Comment: Order Date: 09/25/24 Order Info: 666-03 - BMP Order Info: [id number] - MG Order Info: 2497-06 - FE Order Info: 2275-06 - MARTIN Performed By: #### L 503.0106, L506.1001 #### [facility] [address] [place], [place], [address] Hematocrit (Bld) [Volume fraction] 43.7 % Normal 40-54 [facility] Comment on above: Order Comment: Order Date: 09/25/24 Order Info: 666-03 - BMP Order Info: [id number] - MG Order Info: 2497-06 - FE Order Info: 2275-06 - MARTIN Performed By: #### L 503.0106, L506.1001 #### [facility] [address] [place], [place], [address] Hemoglobin (Bld) [Mass/Vol] 14.8 g/dL Normal 13.0-16.5 [facility] Comment on above: Order Comment: Order Date: 09/25/24 Order Info: 666-03 - BMP Order Info: [id number] - MG Order Info: 24910-09 - FE Order Info: 2275-06 - MARTIN Performed By: #### L 503.0106, L506.1001 #### [facility] [address] [place], [place], [address] MCH (RBC) [Entitic mass] 34.1 pg High 27.0-32.0 [facility] Comment on above: Order Comment: Order Date: 09/25/24 Order Info: 666-03 - BMP Order Info: [id number] - MG Order Info: 2497-06 - FE Order Info: 2275-06 - MARTIN Performed By: #### L 503.0106, L506.1001 #### [facility] [address] [place], [place], [address] MCHC (RBC) [Mass/Vol] 33.9 g/dL Normal 32-36 [facility] Comment on above: Order Comment: Order Date: 09/25/24 Order Info: 666-03 - BMP Order Info: [id number] - MG Order Info: 2498 - FE Order Info: 2275-06 - MARTIN Performed By: #### L 503.0106, L506.1001 #### [facility] [address] [place], [address] MCV (RBC) [Entitic vol] 100.7 fL High 80-94 [facility] Comment on above: Order Comment: Order Date: 09/25/24 Order Info: 666-03 - BMP Order Info: [id number] - MG Order Info: 2497-06 - FE Order Info: 2275-06 - MARTIN Performed By: #### L 503.0106, L506.1001 #### [facility] [address] [facility] [place], [address] Platelet mean volume (Bld) [Entitic vol] 11.4 fL Normal 6.2-12.0 [facility] Comment on above: Order Comment: Order Date: 09/25/24 Order Info: 666-03 - BMP Order Info: 12329-2 - MG Order Info: 24910-09 - FE Order Info: 2275-06 - MARTIN Performed By: #### L 503.0106, L506.1001 #### [facility] [address] [place], [address] Platelets (Bld) [#/Vol] 219 10*3/uL Normal 150-450 [facility] Comment on above: Order Comment: Order Date: 09/25/24 Order Info: 666-03 - BMP Order Info: [id number] - MG Order Info: 2497-06 - FE Order Info: 2275-06 - MARTIN Performed By: #### L 503.0106, L506.1001 #### [facility] [address] [place], [place], [address] RBC (Bld) [#/Vol] 4.34 10*6/uL Low 4.6-6.2 [facility] Comment on above: Order Comment: Order Date: 09/25/24 Order Info: 0667-1 - BMP Order Info: [id number] - MG Order Info: 4 - FE Order Info: 2275-06 - MARTIN Performed By: #### L 503.0106, L506.1001 #### [facility] [address] [place], [place], [address] RDW SD 62.4 fl High 35.1-43.9 [facility] Comment on above: Order Comment: Order Date: 09/25/24 Order Info: 666-03 - BMP Order Info: 10523-8 - MG Order Info: 2497-06 - FE Order Info: 2275-06 - MARTIN Performed By: #### L 503.0106, L506.1001 #### [facility] [address] [place], [place], [address] WBC (Bld) [#/Vol] 7.6 10*3/uL Normal 4.4-11.0 [facility] Comment on above: Order Comment: Order Date: 09/25/24 Order Info: 0667- - BMP Order Info: [id number] - MG Order Info: 2497-06 - FE Order Info: 2275-06 - MARTIN Performed By: #### L 503.0106, L506.1001 #### [facility] [address] [place], [place], [address] Comprehensive Metabolic Prof ilon 12-22-2023 Albumin [Mass/Vol] 3.2 g/dL Normal 3.2-5.0 [facility] Comment on above: Order Comment: Order Date: 09/25/24 Order Info: 0667-1 - BMP Order Info: [id number] - MG Order Info: 2497-06 - FE Order Info: 2275-06 - MARTIN Performed By: #### L 503.0106, L506.1001 #### [facility] [address] [place], [address] Albumin/Globulin [Mass ratio] 0.9 {ratio} Normal 0.9-2.4 [facility] Comment on above: Order Comment: Order Date: 09/25/24 Order Info: 666-03 - BMP Order Info: 27613-0 - MG Order Info: 2497-06 - FE Order Info: 2275-06 - MARTIN Performed By: #### L 503.0106, L506.1001 #### [facility] [address] [place], [address] ALK P 64 U/L Normal 45-117 [facility] Comment on above: Order Comment: Order Date: 09/25/24 Order Info: 666-03 - BMP Order Info: [id number] - MG Order Info: 2497-06 - FE Order Info: 2275-06 - MARTIN Performed By: #### L 503.0106, L506.1001 #### [facility] [address] [place], [address] ALT [Catalytic activity/Vol] 48 U/L Normal 16-61 [facility] Comment on above: Order Comment: Order Date: 09/25/24 Order Info: 666-03 - BMP Order Info: 72300-0 - MG Order Info: 24910-09 - FE Order Info: 2275-06 - MARTIN Performed By: #### L 503.0106, L506.1001 #### [facility] [address] [place], [address] AST [Catalytic activity/Vol] 37 U/L Normal 15-37 [facility] Comment on above: Order Comment: Order Date: 09/25/24 Order Info: 666-03 - BMP Order Info: [id number] - MG Order Info: 24910-09 - FE Order Info: 4 - MARTIN Performed By: #### L 503.0106, L506.1001 #### [facility] [address] [place], [address] Bilirubin [Mass/Vol] 0.50 mg/dL Normal 0.20-1.00 [facility] Comment on above: Order Comment: Order Date: 09/25/24 Order Info: 0667-1 - BMP Order Info: 41314-5 - MG Order Info: 2497-4 - FE Order Info: 2275-4 - MARTIN Result Comment: For patients on eltrombopag therapy, use of Dimension [place] TBIL is not recommended. Performed By: #### L 503.0106, L506.1001 #### [facility] [address] [place], [place], [address] (026) BUN/CRE 10.2 RATIO Normal 10-20 [facility] Comment on above: Order Comment: Order Date: 09/25/24 Order Info: 06 - BMP Order Info: [id number] - MG Order Info: 2497-06 - FE Order Info: 2275-06 - MARTIN Performed By: #### L 503.0106, L506.1001 #### [facility] [address] [place], [address] CA,Total 9.0 mg/dL Normal 8.5-10.1 [facility] Comment on above: Order Comment: Order Date: 09/25/24 Order Info: 06- - BMP Order Info: 41546-3 - MG Order Info: 24910-09 - FE Order Info: 2275-06 - MARTIN Performed By: #### L 503.0106, L506.1001 #### [facility] [address] [place], [address] Chloride [Moles/Vol] 106 mmol/L Normal 98-107 [facility] Comment on above: Order Comment: Order Date: 09/25/24 Order Info: 0667-1 - BMP Order Info: 20231-0 - MG Order Info: 2497-06 - FE Order Info: 2275-06 - MARTIN Performed By: #### L 503.0106, L506.1001 #### [facility] [address] [place], [place], [address] CO2 [Moles/Vol] 25.0 mmol/L Normal 21.0-32.0 [facility] Comment on above: Order Comment: Order Date: 09/25/24 Order Info: 666-1 - BMP Order Info: 34932-9 - MG Order Info: 4 - FE Order Info: 2275-06 - MARTIN Performed By: #### L 503.0106, L506.1001 #### [facility] [address] [place], [address] Creatinine [Mass/Vol] 1.86 mg/dL High 0.70-1.30 [facility] Comment on above: Order Comment: Order Date: 09/25/24 Order Info: 666- - BMP Order Info: 23529-4 - MG Order Info: 2497-06 - FE Order Info: 2275-06 - MARTIN Result Comment: The validity of the calculated GFR GFRAA in patients over 70 years has not been determined. Clinical correlation is essential. Performed By: #### L 503.0106, L506.1001 #### [facility] [address] [place], [address] EST GFR - AA 48 mL/min Low >60 [facility] Comment on above: Order Comment: Order Date: 09/25/24 Order Info: 666-03 - BMP Order Info: 12449-8 - MG Order Info: 2497-06 - FE Order Info: 2275-06 - MARTIN Result Comment: Afri can [place] GFR Calc Performed By: #### L 503.0106, L506.1001 #### [facility] [address] [place], [address] GAP 7 Normal 5-15 [facility] Comment on above: Order Comment: Order Date: 09/25/24 Order Info: 666- - BMP Order Info: [id number] - MG Order Info: 2497-06 - FE Order Info: 2275-06 - MARTIN Performed By: #### L 503.0106, L506.1001 #### [facility] [address] [place], [address] GFR/1.73 sq M.predicted among non-blacks MDRD (S/P/Bld) [Vol rate/Area] 40 mL/min/{1.73_m2} Low >60 [facility] Comment on above: Order Comment: Order Date: 09/25/24 Order Info: 0667- - BMP Order Info: 30151-0 - MG Order Info: 2497-06 - FE Order Info: 2275-4 - MARTIN Result Comment: Non- GFR Calc Performed By: #### L 503.0106, L506.1001 #### [facility] [address] [place], [address] Globulin (S) [Mass/Vol] 3.4 g/dL Normal 2.2-4.[address] [facility] Comment on above: Order Comment: Order Date: 09/25/24 Order Info: 06- - BMP Order Info: [id number] - MG Order Info: 2497-06 - FE Order Info: 2275-06 - MARTIN Performed By: #### L 503.0106, L506.1001 #### [facility] [address] [place], [address] Glucose [Mass/Vol] 115 mg/dL High 74-106 [facility] Comment on above: Order Comment: Order Date: 09/25/24 Order Info: 0667-1 - BMP Order Info: 24407-2 - MG Order Info: 2497-06 - FE Order Info: 2275-4 - MARTIN Result Comment: Fast ing Glucose result from 100 to 125 mg/dL suggests IMPAIRED HOMEOSTASIS per A.D.A. criteria. Performed By: #### L 503.0106, L506.1001 #### [facility] [address] [place], [place], [address] Potassium [Moles/Vol] 4.3 mmol/L Normal 3.5-5.1 [facility] Comment on above: Order Comment: Order Date: 09/25/24 Order Info: 0667- - BMP Order Info: 63579-4 - MG Order Info: 2498-4 - FE Order Info: 6-4 - MARTIN Performed By: #### L 503.0106, L506.1001 #### [facility] [address] [place], [address] Sodium [Moles/Vol] 138 mmol/L Normal 136-145 [facility] Comment on above: Order Comment: Order Date: 09/25/24 Order Info: 666- - BMP Order Info: [id number] - MG Order Info: 24984 - FE Order Info: 4 - MARTIN Performed By: #### L 503.0106, L506.1001 #### [facility] [address] [place], [place], [address] T PROT 6.6 g/dL Normal 6.4-8.2 [facility] Comment on above: Order Comment: Order Date: 09/25/24 Order Info: 666-03 - BMP Order Info: 00800-3 - MG Order Info: 24984 - FE Order Info: 4 - MARTIN Performed By: #### L 503.0106, L506.1001 #### [facility] [address] [facility] [address] [place], [place], [address] Urea nitrogen [Mass/Vol] 19 mg/dL High 7-18 [facility] Comment on above: Order Comment: Order Date: 09/25/24 Order Info: 666-03 - BMP Order Info: 64260-8 - MG Order Info: 2498-4 - FE Order Info: 227-4 - MARTIN Performed By: #### L 503.0106, L506.1001 #### [facility] [address] [place], [address] Ferritinon 12-22-2023 Ferritin [Mass/Vol] 452 ng/mL High 26-388 [facility] Comment on above: Order Comment: Order Date: 09/25/24 Order Info: 666- - BMP Order Info: 62250-9 - MG Order Info: 2498-4 - FE Order Info: 2275-06 - MARTIN Performed By: #### L 503.0106, L506.1001 #### [facility] [address] [place], [address] Ironon 12-22-2023 Iron [Mass/Vol] 92 ug/dL Normal 65-175 [facility] Comment on above: Order Comment: Order Date: 09/25/24 Order Info: 666- - BMP Order Info: [id number] - MG Order Info: 2497-06 FE Order Info: 2275-06 - MARTIN Performed By: #### L 503.0106, L506.1001 #### [facility] [address] [place], [address] Lipid Profileon 12-22-2023 Cholesterol [Mass/Vol] 112 mg/dL Normal 200 [facility] Comment on above: Order Comment: Order Date: 09/25/24 Order Info: 666-03 - BMP Order Info: 96963-4 - MG Order Info: 2497-06 FE Order Info: 2275-06 - MARTIN Result Comment: <200 mg/dL Desirable 200-240 mg/dL Borderline >240 mg/dL High Risk Performed By: #### L 503.0106, L506.1001 #### [facility] [address] [place], [address] Cholesterol in HDL [Mass/Vol] 44 mg/dL Normal [facility] Comment on above: Order Comment: Order Date: 09/25/24 Order Info: 06- - BMP Order Info: [id number] - MG Order Info: 2497-06 - FE Order Info: 2275-06 - MARTIN Result Comment: The drugs N-Acetylcysteine and Metamizole may falsely depress this assay. Reference Range HDL <40 mg/dL Low HDL Cholesterol HDL >or= 60 mg/dL High HDL Cholesterol Performed By: #### L 503.0106, L506.1001 #### [facility] [address] [place], [address] Cholesterol in LDL [Mass/Vol] 47 mg/dL Normal 0-130 [facility] Comment on above: Order Comment: Order Date: 09/25/24 Order Info: 06- - BMP Order Info: 23222-2 - MG Order Info: 2497-06 Order Info: 2275-06 - MARTIN Performed By: #### L 503.0106, L506.1001 #### [facility] [address] [place], [address] Cholesterol in VLDL [Mass/Vol] 21 mg/dL Normal 5-40 [facility] Comment on above: Order Comment: Order Date: 09/25/24 Order Info: 666-03 - BMP Order Info: 13115-2 - MG Order Info: 2497-06 Order Info: 2275-06 - MARTIN Performed By: #### L 503.0106, L506.1001 #### [facility] [address] [place], [address] Triglyceride [Mass/Vol] 104 mg/dL Normal [facility] Comment on above: Order Comment: Order Date: 09/25/24 Order Info: 666-03 - BMP Order Info: 57610-8 - MG Order Info: 2497-06 Order Info: 2275-06 - MARTIN Result Comment: The drugs N-Acetylcysteine and Metamizole may falsely depress this assay. Serum Triglycerides Reference Interval Normal <150 mg/dL Borderline high 150 - 199 mg/dL High 200 - 499 mg/dL Very High > or = 500 mg/dL Performed By: #### L 503.0106, L506.1001 #### [facility] [address] [place], [address] Oncology Visit Reporton 12-06 Oncology Visit Report [facility] [address] [place] [address] OFFICE VISIT Date of Service: 12/22/23 1331 MR#: [id number] Acct: [id number] Name: YEFRI YANEZ Rep #: [id number] : 1965 From: Dangelo Botello MD Age/Sex: 58/M [place] [facility] [place] Status: Signed HPI Subjective Date of Service [...] for follow up after CT. Feeling well [facility] Medical History Abnormal chest x-ray Warfarin-induced coagulopathy [...] (more content not included)... Normal [facility] Basophil percentageOrdered B y: Jose Ramon Turner on 05-27-2023 Bilirubin [Mass/Vol] 0.60 mg/dL 0.20-1.00 [facility] Comment on above: For patients on eltr ombopag therapy, use of Dimension [place] TBIL is not recommended. Chloride [Moles/Vol] 106 mmol/L 98-107 [facility] Glucose [Mass/Vol] 106 mg/dL 74-106 [facility] Comment on above: Fasting Glucose resu lt from 100 to 125 mg/dL suggests IMPAIRED HOMEOSTASIS per A.D.A. criteria. Potassium [Moles/Vol] 3.8 mmol/L 3.5-5.1 [facility] Comment on above: Slight Hemolysis, Re sult may be falsely increased. Protein [Mass/Vol] 6.7 g/dL 6.4-8.2 [facility] Sodium [Moles/Vol] 138 mmol/L 136-145 [facility] Testosterone [Mass/Vol] 173.63 ng/dL [facility] Comment on above: CENTRAL 90% REFERENC E [...] spec) [Mass/Mass] 115 ug/dL 65-175 [facility] Comment on above: Slight Hemolysis, Re sult may be falsely increased. Laboratory - Chemistry and C hemistry - challengeOrdered By: Jose Ramon Turner on 05-27-2023 Albumin/Globulin [Mass ratio] 0.9 {ratio} 0.9-2.4 [facility] ALP [Catalytic activity/Vol] 73 U/L 45-117 [facility] ALT [Catalytic activity/Vol] 54 U/L 16-61 [facility] CO2 [Moles/Vol] 24.0 mmol/L 21.0-32.0 [facility] Cobalamin (Vitamin B12) [Mass/Vol] 241 pg/mL 211-911 [facility] Ferritin [Mass/Vol] 515 ng/mL 26-388 [facility] Globulin (S) [Mass/Vol] 3.6 g/dL 2.2-4.2 [facility] Urea nitrogen/Creatinine [Mass ratio] 10.7 mg/mg 10-20 [facility] No Panel InformationOrdered By: Jose Ramon Turner on 05-27-2023 Estimated GFR (MDRD) Amer 54 mL/min >60 [facility] Comment on above: GFR Calc Estimated GFR (MDRD) Non-Af Amer 44 mL/min >60 [facility] Comment on above: Non- GFR Calc Serum or plasma calcium cory urement (mass/volume)Ordered By: Jose Ramon Turner on 05-27-2023 Calcium [Mass/Vol] 8.8 mg/dL 8.5-10.1 [facility] Serum or plasma creatinine m easurement (mass/volume)Ordered By: Jose Ramon Turner on 05-27-2023 Creatinine [Mass/Vol] 1.69 mg/dL 0.70-1.30 [facility] Comment on above: The validity of the calculated GFR & GFRAA in patients over 70 years has not been determined. Clinical correlation is essential. Serum or plasma thyroid stim ulating hormone (TSH) measurement (units/volume)Ordered By: Jose Ramon Turner on 05-27-2023 TSH Qn 3.25 uIU/mL 0.358-3.74 [facility] Serum or plasma urea nitroge n measurement (mass/volume)Ordered By: Jose Ramon Turner on 05-27-2023 Urea nitrogen [Mass/Vol] 18 mg/dL 7-18 [facility] Thin prep Papanicolaou smear with manual screeningOrdered By: Jose Ramon Turner on 05-27-2023 Thin prep Papanicolaou smear with manual screening 3.1 g/dL 3.2-5.0 [facility] Thin prep Papanicolaou smear with manual screening 40 U/L 15 [facility] Comment on above: Slight Hemolysis, Re sult may be falsely increased. Thin prep Papanicolaou smear with manual screening 8 07-20 [facility] Clostridioides difficile nuc leic acid assay by PCROrdered By: Jose Ramon Turner on 05-21-2023 C. difficile DNA SANDOVAL+probe Ql (Unsp spec) [facility] Lower GI hemoglobin IA Ql (S tl)Ordered By: Jose Ramon Turner on 05-21-2023 Stool Occult Blood (STEVENSON) Positive [facility] Ova and parasitesOrdered By: Jose Ramon Turner on 05-21-2023 Ova and parasites identified LM Nom (Unsp spec) [facility] Stool enteric pathogen panel by probe and target amplification methodOrdered By: Jose Ramon Turner on 05-21-2023 Gastrointestinal pathogens panel SANDOVAL+probe (Stl) [facility] Stool pancreatic elastase me asurement (mass/mass)Ordered By: Jose Ramon Turner on 05-21-2023 Elastase.pancreatic (Stl) [Mass/Mass] See comment [facility] Comment on above: TEST RESULTS LIMITSP ancreatic Elastase, Fecal 218 ug Elast./g >200 Severe Pancreatic Insufficiency: <100 Moderate Pancreatic Insufficiency: 100 - 200 Normal: >200 TESTING PERFORMED AT [facility]. ORIGINAL REPORT ON FILE IN LAB CONTAINS ADDITIONAL TEST SITE INFORMATION. Basophil percentageOrdered B y: Jose Ramon Turner on 05-20-2023 Basophil percentage 2.0 mg/dL 2.5-4.9 [facility] Chloride [Moles/Vol] 104 mmol/L 98-107 [facility] Glucose [Mass/Vol] 113 mg/dL 74-106 [facility] Comment on above: Fasting Glucose resu lt from 100 to 125 mg/dL suggests IMPAIRED HOMEOSTASIS per A.D.A. criteria. Potassium [Moles/Vol] 3.8 mmol/L 3.5-5.1 [facility] Sodium [Moles/Vol] 137 mmol/L 136-145 [facility] Laboratory - Chemistry and C hemistry - challengeOrdered By: Jose Ramon Turner on 05-20-2023 CO2 [Moles/Vol] 24.0 mmol/L 21.0-32.0 [facility] Urea nitrogen/Creatinine [Mass ratio] 11.1 mg/mg 10-20 [facility] No Panel InformationOrdered By: Jose Ramon Turner on 05-20-2023 Estimated GFR (MDRD) Amer 47 mL/min >60 [facility] Comment on above: GFR Calc Estimated GFR (MDRD) Non-Af Amer 39 mL/min >60 [facility] Comment on above: Non- GFR Calc Serum or plasma calcium cory urement (mass/volume)Ordered By: Jose Ramon Turner on 05-20-2023 Calcium [Mass/Vol] 8.6 mg/dL 8.5-10.1 [facility] Serum or plasma creatinine m easurement (mass/volume)Ordered By: Jose Ramon Turner on 05-20-2023 Creatinine [Mass/Vol] 1.89 mg/dL 0.70-1.30 [facility] Comment on above: The validity of the calculated GFR & GFRAA in patients over 70 years has not been determined. Clinical correlation is essential. Serum or plasma urea nitroge n measurement (mass/volume)Ordered By: Jose Ramon Turner on 05-20-2023 Urea nitrogen [Mass/Vol] 21 mg/dL 7-18 [facility] Thin prep Papanicolaou smear with manual screeningOrdered By: Jose Ramon Turner on 05-20-2023 Thin prep Papanicolaou smear with manual screening 3.2 g/dL 3.2-5.0 [facility] Absolute lymphocyte countOrd ered By: Dangelo Ayan on 04-12-2023 Lymphocytes Auto (Unsp spec) [#/Vol] 1.08 10*3/uL 0.83-4.51 [facility] Automated lymphocyte count a s percentage of total leukocytesOrdered By: Dangelo Botello on 04-12-2023 Lymphocytes/100 WBC Auto (Unsp spec) 18.6 % 19-41 [facility] Basophil percentageOrdered B y: Dangelo Botello on 04-12-2023 Basophils/100 WBC (Bld) 0.3 % 0-1 [facility] Bilirubin [Mass/Vol] 0.50 mg/dL 0.20-1.00 [facility] Comment on above: For patients on eltr ombopag therapy, use of Dimension [place] TBIL is not recommended. Chloride [Moles/Vol] 106 mmol/L 98-107 [facility] Eosinophils/100 WBC (Bld) 0.5 % 0-5 [facility] Glucose [Mass/Vol] 121 mg/dL 74-106 [facility] Comment on above: Fasting Glucose resu lt from 100 to 125 mg/dL suggests IMPAIRED HOMEOSTASIS per A.D.A. criteria. Hemoglobin (Bld) [Mass/Vol] 13.9 g/dL 13.0-16.5 [facility] LDH [Catalytic activity/Vol] 391 U/L 87-241 [facility] Comment on above: Slight Hemolysis, Re sult may be falsely increased. Monocytes/100 WBC (Bld) 6.4 % 0-10 [facility] Neutrophils (Bld) [#/Vol] 4.3 10*3/uL 2.0-7.7 [facility] Neutrophils/100 WBC (Bld) 74.0 % 47-70 [facility] Potassium [Moles/Vol] 3.6 mmol/L 3.5-5.1 [facility] Comment on above: Slight Hemolysis, Re sult may be falsely increased. Protein [Mass/Vol] 7.2 g/dL 6.4-8.2 [facility] Sodium [Moles/Vol] 141 mmol/L 136-145 [facility] WBC (Bld) [#/Vol] 5.8 10*3/uL 4.4-11.0 [facility] Blood manual differential co mment interpretation (narrative result)Ordered By: Dangelo Botello on 04-12-2023 Manual differential comment Piyush (Bld) [Interp] SCANNED [facility] Comment on above: 1+ ANISOCYTOSIS Determination of erythrocyte mean corpuscular volume (MCV)Ordered By: Dangelo Botello on 04-12-2023 MCV (RBC) [Entitic vol] 100.7 fL 80-94 [facility] Erythrocyte distribution wid th ratioOrdered By: Dangelo Botello on 04-12-2023 Erythrocyte distribution width (RBC) [Ratio] 17.9 % 11.6-14.6 [facility] Erythrocyte distribution wid th standard deviationOrdered By: Dangelo Botello on 04-12-2023 Erythrocyte distribution width (RBC) [Entitic vol] 66.3 fL 35.1-43.9 [facility] Hematocrit Auto (Bld) [Volum e fraction]Ordered By: Dangelo Botello on 04-12-2023 Hematocrit (Bld) [Volume fraction] 41.9 % 40-54 [facility] Immature granulocytes/100 WB C Auto (Bld)Ordered By: Dangelo Botello on 04-12-2023 Immature granulocytes/100 WBC (Bld) 0.200 % 0.0-0.9 [facility] Comment on above: IG% - Immature Granu locytes (promyelocytes, myelocytes and metamyelocytes) > 1% indicates that a LEFT SHIFT is Present. Laboratory - Chemistry and C hemistry - challengeOrdered By: Dangelo Botello on 04-12-2023 Albumin/Globulin [Mass ratio] 0.8 {ratio} 0.9-2.4 [facility] ALP [Catalytic activity/Vol] 61 U/L 45-117 [facility] ALT [Catalytic activity/Vol] 47 U/L 16-61 [facility] CO2 [Moles/Vol] 28.0 mmol/L 21.0-32.0 [facility] Globulin (S) [Mass/Vol] 3.9 g/dL 2.2-4.2 [facility] Urea nitrogen/Creatinine [Mass ratio] 10.8 mg/mg 10-20 [facility] - Hematology and Cell countsOrdered By: Dangelo Botello on 04-12-2023 MCH (RBC) [Entitic mass] 33.4 pg 27.0-32.0 [facility] MCHC (RBC) [Mass/Vol] 33.2 g/dL 32-36 [facility] Nucleated RBC/100 WBC (Bld) [Ratio] 0.3 % 0-5 [facility] Platelets (Bld) [#/Vol] 275 10*3/uL 150-450 [facility] No Panel InformationOrdered By: Dangelo Botello on 04-12-2023 Estimated Creatinine Clearance Calc 57.07 ml/min [facility] Estimated GFR (MDRD) Amer 48 mL/min >60 [facility] Comment on above: GFR Calc Estimated GFR (MDRD) Non-Af Amer 40 mL/min >60 [facility] Comment on above: Non- GFR Calc Platelet mean volume Kevin-Ec ker (Bld) [Entitic vol]Ordered By: Dangelo Botello on 04-12-2023 Platelet mean volume (Bld) [Entitic vol] 10.4 fL 6.2-12.0 [facility] RBC Auto (Bld) [#/Vol]Ordere d By: Dangelo Botello on 04-12-2023 RBC (Bld) [#/Vol] 4.16 10*6/uL 4.6-6.2 [facility] Serum or plasma calcium cory urement (mass/volume)Ordered By: Dangelo Botello on 04-12-2023 Calcium [Mass/Vol] 8.8 mg/dL 8.5-10.1 [facility] Serum or plasma creatinine m easurement (mass/volume)Ordered By: Dangelo Botello on 04-12-2023 Creatinine [Mass/Vol] 1.86 mg/dL 0.70-1.30 [facility] Comment on above: The validity of the calculated GFR & GFRAA in patients over 70 years has not been determined. Clinical correlation is essential. Serum or plasma urea nitroge n measurement (mass/volume)Ordered By: Dangelo Botello on 04-12-2023 Urea nitrogen [Mass/Vol] 20 mg/dL 7-18 [facility] Thin prep Papanicolaou smear with manual screeningOrdered By: Dangelo Botello on 04-12-2023 Thin prep Papanicolaou smear with manual screening 3.3 g/dL 3.2-5.0 [facility] Thin prep Papanicolaou smear with manual screening 34 U/L 15-37 [facility] Comment on above: Slight Hemolysis, Re sult may be falsely increased. Thin prep Papanicolaou smear with manual screening 7 5-15 [facility] Basophil percentageOrdered B y: Isidra Chiu on 02-12-2023 Basophil percentage 0-5 SEEN /hpf 0-5 [facility] Bilirubin Test strip Ql (U)O rdered By: Isidra Chiu on 02-12-2023 Bilirubin Ql (U) Negative Negative [facility] Ketones Test strip Ql (U)Ord ered By: Isidra Chiu on 02-12-2023 Ketones Ql (U) Negative Negative [facility] Mucus LM Ql (Urine sed)Order ed By: Isidra Chiu on 02-12-2023 Mucus Ql (Urine sed) 0 SEEN /hpf [facility] Nitrite Test strip Ql (U)Ord ered By: Isidra Chiu on 02-12-2023 Nitrite Ql (U) Negative Negative [facility] Protein Test strip Ql (U)Ord ered By: Isidra Chiu on 02-12-2023 Protein Ql (U) 15 mg/dl Negative [facility] Squamous epithelial cells de tection in urine sediment by light microscopyOrdered By: Isidra Chiu on 02-12-2023 Epithelial cells.squamous LM Ql (Urine sed) 0 SEEN /hpf 0-5 [facility] Urine blood detectionOrdered By: Isidra Chiu on 02-12-2023 RBC Ql (U) Negative Negative [facility] RBC Ql (U) 0 SEEN /hpf 0-5 [facility] Urine clarityOrdered By: Bruce Chiu on 02-12-2023 Clarity (U) Clear Clear [facility] Urine color determinationOrd ered By: Isidra Chiu on 02-12-2023 Color (U) Yellow Yellow [facility] Urine creatinine measurement (mass/volume)Ordered By: Isidra Chiu on 02-12-2023 Creatinine (U) [Mass/Vol] 194.00 mg/dL NO RANGE EST. [facility] Urine glucose detectionOrder ed By: Isidra Chiu on 02-12-2023 Glucose Ql (U) Normal mg/dl Normal [facility] Urine leukocyte esterase det ection by dipstickOrdered By: Isidra Chiu on 02-12-2023 Leukocyte esterase Test strip Ql (U) 25 /ul Negative [facility] Urine pHOrdered By: Lynette Chiu on 02-12-2023 pH (U) 5.0 [pH] 5.0 - 8.0 [facility] Urine protein measurement (m ass/volume)Ordered By: Isidra Chiu on 02-12-2023 Protein (U) [Mass/Vol] 20.7 mg/dL 0.0-11.8 [facility] Urine protein/creatinine mas s ratioOrdered By: Isidra Chiu on 02-12-2023 Protein/Creatinine (U) [Mass ratio] 107 mg/g CRE 0-200 [facility] Urine sediment bacteria coun t by microscopy (number/high power field)Ordered By: Isidra Chiu on 02-12-2023 Bacteria LM.HPF (Urine sed) [#/Area] 0 /[HPF] None Seen [facility] Urine specific gravity measu rementOrdered By: Isidra Chiu on 02-12-2023 Specific gravity (U) [Rel density] 1.020 1.002-1.03 0 [facility] Urobilinogen Auto test strip Ql (U)Ordered By: Isidra Chiu on 02-12-2023 Urobilinogen Ql (U) Normal mg/dl Normal [facility] Absolute lymphocyte countOrd ered By: Carol Chiu on 12-17-2022 Lymphocytes Auto (Unsp spec) [#/Vol] 0.88 10*3/uL 0.83-4.51 [facility] Basophil percentageOrdered B y: Carol Chiu on 12-17-2022 Basophils/100 WBC (Bld) 0.4 % 0-1 [facility] Chloride [Moles/Vol] 107 mmol/L 98-107 [facility] Eosinophils/100 WBC (Bld) 1.0 % 0-5 [facility] Glucose [Mass/Vol] 110 mg/dL 74-106 [facility] Comment on above: Fasting Glucose resu lt from 100 to 125 mg/dL suggests IMPAIRED HOMEOSTASIS per A.D.A. criteria. Neutrophils (Bld) [#/Vol] 3.7 10*3/uL 2.0-7.7 [facility] Neutrophils/100 WBC (Bld) 71.5 % 47-70 [facility] Potassium [Moles/Vol] 3.5 mmol/L 3.5-5.1 [facility] Sodium [Moles/Vol] 138 mmol/L 136-145 [facility] WBC (Bld) [#/Vol] 5.2 10*3/uL 4.4-11.0 [facility] Blood erythrocytes count (nu mber/volume)Ordered By: Carol Chiu on 12-17-2022 RBC (Bld) [#/Vol] 4.04 10*6/uL 4.6-6.2 [facility] Blood hemoglobin measurement (mass/volume)Ordered By: Carol Chiu on 12-17-2022 Hemoglobin (Bld) [Mass/Vol] 13.9 g/dL 13.0-16.5 [facility] Blood lymphocytes/100 leukoc ytesOrdered By: Carol Chiu on 12-17-2022 Lymphocytes/100 WBC (Bld) 16.9 % 19-41 [facility] Blood monocytes/100 leukocyt esOrdered By: Carol Chiu on 12-17-2022 Monocytes/100 WBC (Bld) 9.8 % 0-10 [facility] Blood platelet mean volumeOr dered By: Carol Chiu on 12-17-2022 Platelet mean volume (Bld) [Entitic vol] 11.2 fL 6.2-12.0 [facility] Determination of erythrocyte mean corpuscular volume (MCV)Ordered By: Carol Chiu on 12-17-2022 MCV (RBC) [Entitic vol] 102.0 fL 80-94 [facility] Hematocrit Auto (Bld) [Volum e fraction]Ordered By: Carol Chiu on 12-17-2022 Hematocrit (Bld) [Volume fraction] 41.2 % 40-54 [facility] INR in Blood by Coagulation assayOrdered By: Marquise Padilla on 12-17-2022 INR Coag (Bld) [Relative time] 2.2 {INR} [facility] Laboratory - Chemistry and C hemistry - challengeOrdered By: Carol Chiu on 12-17-2022 CO2 [Moles/Vol] 26.0 mmol/L 21.0-32.0 [facility] Urea nitrogen/Creatinine [Mass ratio] 11.5 mg/mg 10-20 [facility] Laboratory - CoagulationOrde red By: Marquise Padilla on 12-17-2022 PT Coag (PPP) [Time] 24.6 s 11.7-14.9 [facility] Laboratory - Hematology and Cell countsOrdered By: Carol Chiu on 12-17-2022 Erythrocyte distribution width (RBC) [Entitic vol] 63.6 fL 35.1-43.9 [facility] Erythrocyte distribution width (RBC) [Ratio] 16.9 % 11.6-14.6 [facility] Immature granulocytes/100 WBC (Bld) 0.400 % 0.0-0.9 [facility] Comment on above: IG% - Immature Granu locytes (promyelocytes, myelocytes and metamyelocytes) > 1% indicates that a LEFT SHIFT is Present. MCH (RBC) [Entitic mass] 34.4 pg 27.0-32.0 [facility] Nucleated RBC/100 WBC (Bld) [Ratio] 0.8 % 0-5 [facility] MCHC Auto (RBC) [Mass/Vol]Or dered By: Carol Chiu on 12-17-2022 MCHC (RBC) [Mass/Vol] 33.7 g/dL 32-36 [facility] No Panel InformationOrdered By: Carol Chiu on 12-17-2022 Estimated Creatinine Clearance Calc 51.97 ml/min [facility] Estimated GFR (MDRD) Amer 55 mL/min >60 [facility] Comment on above: GFR Calc Estimated GFR (MDRD) Non-Af Amer 46 mL/min >60 [facility] Comment on above: Non- GFR Calc Platelets bldOrdered By: Lina Chiu on 12-17-2022 Platelets (Bld) [#/Vol] 193 10*3/uL 150-450 [facility] Serum or plasma calcium cory urement (mass/volume)Ordered By: Carol Chiu on 12-17-2022 Calcium [Mass/Vol] 9.3 mg/dL 8.5-10.1 [facility] Serum or plasma creatinine m easurement (mass/volume)Ordered By: Carol Chiu on 12-17-2022 Creatinine [Mass/Vol] 1.65 mg/dL 0.70-1.30 [facility] Comment on above: The validity of the calculated GFR & GFRAA in patients over 70 years has not been determined. Clinical correlation is essential. Serum or plasma urea nitroge n measurement (mass/volume)Ordered By: Carol Chiu on 12-17-2022 Urea nitrogen [Mass/Vol] 19 mg/dL 7-18 [facility] Thin prep Papanicolaou smear with manual screeningOrdered By: Carol Chiu on 12-17-2022 Thin prep Papanicolaou smear with manual screening 5 5-15 [facility] Blood manual differential co mment interpretation (narrative result)Ordered By: Marquise Padilla on 12-16-2022 Manual differential comment Piyush (Bld) [Interp] SCANNED [facility] Laboratory - Hematology and Cell countsOrdered By: Marquise Padilla on 12-16-2022 Anisocytosis Ql (Bld) 2+ [facility] Macrocytes detectionOrdered By: Marquise Padilla on 12-16-2022 Macrocytes Ql (Bld) 2+ [facility] Laboratory - Chemistry and C hemistry - challengeOrdered By: Speedy Bass on 12-15-2022 Natriuretic peptide B (Bld) [Mass/Vol] 574.1 pg/mL 0-100 [facility] No Panel InformationOrdered By: Marquise Padilla on 12-15-2022 Streptococcus pneumoniae Antigen (M [facility] Streptococcus pneumoniae Antigen (M [facility] No Panel InformationOrdered By: Speedy Bass on 12-15-2022 Troponin I High Sensitivity 40 pg/mL 3.0-78.0 [facility] Comment on above: Please Note: New [place] t Units and Gender Specific Reference Ranges. For more information see Policy Stat Procedure [place] High Sensitivity Troponin (TNIH) and attachments. Urine Legionella pneumophila antigen detectionOrdered By: Marquise Padilla on 12-15-2022 L. pneumophila Ag Ql (U) [facility] L. pneumophila Ag Ql (U) [facility] Basophil percentageOrdered B y: Jose Ramon Turner on 11-12-2022 Chloride [Moles/Vol] 106 mmol/L 98-107 [facility] Glucose [Mass/Vol] 89 mg/dL 74-106 [facility] Potassium [Moles/Vol] 3.9 mmol/L 3.5-5.1 [facility] Comment on above: Slight Hemolysis, Re sult may be falsely increased. Sodium [Moles/Vol] 138 mmol/L 136-145 [facility] WBC (Bld) [#/Vol] 5.4 10*3/uL 4.4-11.0 [facility] Blood erythrocytes count (nu mber/volume)Ordered By: Jose Ramon Turner on 11-12-2022 RBC (Bld) [#/Vol] 4.08 10*6/uL 4.6-6.2 [facility] Blood hemoglobin measurement (mass/volume)Ordered By: Jose Ramon Turner on 11-12-2022 Hemoglobin (Bld) [Mass/Vol] 14.2 g/dL 13.0-16.5 [facility] Blood manual differential co mment interpretation (narrative result)Ordered By: Jose Ramon Turner on 11-12-2022 Manual differential comment Piyush (Bld) [Interp] SCANNED [facility] Comment on above: 2+ ANISOCYTOSIS2+ MA CROCYTOSIS Blood platelet mean volumeOr dered By: Jose Ramon Turner on 11-12-2022 Platelet mean volume (Bld) [Entitic vol] 10.9 fL 6.2-12.0 [facility] Determination of erythrocyte mean corpuscular volume (MCV)Ordered By: Jose Ramon Turner on 11-12-2022 MCV (RBC) [Entitic vol] 105.1 fL 80-94 [facility] Hematocrit Auto (Bld) [Volum e fraction]Ordered By: Jose Ramon Turner on 11-12-2022 Hematocrit (Bld) [Volume fraction] 42.9 % 40-54 [facility] Laboratory - Chemistry and C hemistry - challengeOrdered By: Jose Ramon Turner on 11-12-2022 Natriuretic peptide B (Bld) [Mass/Vol] 255.5 pg/mL 0-100 [facility] CO2 [Moles/Vol] 27.0 mmol/L 21.0-32.0 [facility] Urea nitrogen/Creatinine [Mass ratio] 9.8 mg/mg 10-20 [facility] Laboratory - Hematology and Cell countsOrdered By: Jose Ramon Turner on 11-12-2022 Erythrocyte distribution width (RBC) [Entitic vol] 69.2 fL 35.1-43.9 [facility] Erythrocyte distribution width (RBC) [Ratio] 17.9 % 11.6-14.6 [facility] MCH (RBC) [Entitic mass] 34.8 pg 27.0-32.0 [facility] MCHC Auto (RBC) [Mass/Vol]Or dered By: Jose Ramon Turner on 11-12-2022 MCHC (RBC) [Mass/Vol] 33.1 g/dL 32-36 [facility] No Panel InformationOrdered By: Jose Ramon Turner on 11-12-2022 Estimated GFR (MDRD) Amer 52 mL/min >60 [facility] Comment on above: GFR Calc Estimated GFR (MDRD) Non-Af Amer 43 mL/min >60 [facility] Comment on above: Non- GFR Calc Platelets bldOrdered By: Bruce Turner on 11-12-2022 Platelets (Bld) [#/Vol] 242 10*3/uL 150-450 [facility] Serum or plasma calcium cory urement (mass/volume)Ordered By: Jose Ramon Turner on 11-12-2022 Calcium [Mass/Vol] 9.0 mg/dL 8.5-10.1 [facility] Serum or plasma creatinine m easurement (mass/volume)Ordered By: Jose Ramon Turner on 11-12-2022 Creatinine [Mass/Vol] 1.73 mg/dL 0.70-1.30 [facility] Comment on above: The validity of the calculated GFR & GFRAA in patients over 70 years has not been determined. Clinical correlation is essential. Serum or plasma urea nitroge n measurement (mass/volume)Ordered By: Jose Ramon Turner on 11-12-2022 Urea nitrogen [Mass/Vol] 17 mg/dL 7-18 [facility] Thin prep Papanicolaou smear with manual screeningOrdered By: Jose Ramon Turner on 11-12-2022 Thin prep Papanicolaou smear with manual screening 5 5-15 [facility] Absolute lymphocyte countOrd ered By: Dangelo Botello on 09-03-2022 Lymphocytes Auto (Unsp spec) [#/Vol] 0.99 10*3/uL 0.83-4.51 [facility] Basophil percentageOrdered B y: Dangelo Botello on 09-03-2022 Basophils/100 WBC (Bld) 0.3 % 0-1 [facility] Bilirubin [Mass/Vol] 0.60 mg/dL 0.20-1.00 [facility] Comment on above: For patients on eltr ombopag therapy, use of Dimension [place] TBIL is not recommended. Chloride [Moles/Vol] 102 mmol/L 98-107 [facility] Eosinophils/100 WBC (Bld) 0.2 % 0-5 [facility] Glucose [Mass/Vol] 110 mg/dL 74-106 [facility] Comment on above: Fasting Glucose resu lt from 100 to 125 mg/dL suggests IMPAIRED HOMEOSTASIS per A.D.A. criteria. LDH [Catalytic activity/Vol] 288 U/L 87-241 [facility] Neutrophils (Bld) [#/Vol] 5.0 10*3/uL 2.0-7.7 [facility] Neutrophils/100 WBC (Bld) 77.5 % 47-70 [facility] Potassium [Moles/Vol] 3.6 mmol/L 3.5-5.1 [facility] Protein [Mass/Vol] 7.2 g/dL 6.4-8.2 [facility] Sodium [Moles/Vol] 136 mmol/L 136-145 [facility] WBC (Bld) [#/Vol] 6.4 10*3/uL 4.4-11.0 [facility] Blood erythrocytes count (nu mber/volume)Ordered By: Dangelo Botello on 09-03-2022 RBC (Bld) [#/Vol] 4.37 10*6/uL 4.6-6.2 [facility] Blood hemoglobin measurement (mass/volume)Ordered By: Dangelo Botello on 09-03-2022 Hemoglobin (Bld) [Mass/Vol] 15.2 g/dL 13.0-16.5 [facility] Blood lymphocytes/100 leukoc ytesOrdered By: Dangelo Botello on 09-03-2022 Lymphocytes/100 WBC (Bld) 15.4 % 19-41 [facility] Blood monocytes/100 leukocyt esOrdered By: Dangelo Botello on 09-03-2022 Monocytes/100 WBC (Bld) 6.1 % 0-10 [facility] Blood platelet mean volumeOr dered By: Dangelo Botello on 09-03-2022 Platelet mean volume (Bld) [Entitic vol] 10.0 fL 6.2-12.0 [facility] Determination of erythrocyte mean corpuscular volume (MCV)Ordered By: Dangelo Botello on 09-03-2022 MCV (RBC) [Entitic vol] 100.7 fL 80-94 [facility] Hematocrit Auto (Bld) [Volum e fraction]Ordered By: Dangelo Botello on 09-03-2022 Hematocrit (Bld) [Volume fraction] 44.0 % 40-54 [facility] Laboratory - Chemistry and C hemistry - challengeOrdered By: Dangelo Ayan on 09-03-2022 ALP [Catalytic activity/Vol] 76 U/L 45-117 [facility] ALT [Catalytic activity/Vol] 52 U/L 16-61 [facility] CO2 [Moles/Vol] 28.0 mmol/L 21.0-32.0 [facility] Globulin (S) [Mass/Vol] 4.1 g/dL 2.2-4.2 [facility] Urea nitrogen/Creatinine [Mass ratio] 9.5 mg/mg 10-20 [facility] Laboratory - Hematology and Cell countsOrdered By: Dangelo Botello on 09-03-2022 [facility]is[facility]Bld) [facility] Erythrocyte distribution width (RBC) [Entitic vol] 68.4 fL 35.1-43.9 [facility] Erythrocyte distribution width (RBC) [Ratio] 18.4 % 11.6-14.6 [facility] Immature granulocytes/100 WBC (Bld) 0.500 % 0.0-0.9 [facility] Comment on above: IG% - Immature Granu locytes (promyelocytes, myelocytes and metamyelocytes) > 1% indicates that a LEFT SHIFT is Present. MCH (RBC) [Entitic mass] 34.8 pg 27.0-32.0 [facility] Nucleated RBC/100 WBC (Bld) [Ratio] 0.5 % 0-5 [facility] MCHC Auto (RBC) [Mass/Vol]Or dered By: Dangelo Botello on 09-03-2022 MCHC (RBC) [Mass/Vol] 34.5 g/dL 32-36 [facility] No Panel InformationOrdered By: Dangelo Botello on 09-03-2022 Estimated Creatinine Clearance Calc 47.91 ml/min [facility] Estimated GFR (MDRD) Amer 50 mL/min >60 [facility] Comment on above: GFR Calc Estimated GFR (MDRD) Non-Af Amer 42 mL/min >60 [facility] Comment on above: Non- GFR Calc Platelets bldOrdered By: Jose Botello on 09-03-2022 Platelets (Bld) [#/Vol] 241 10*3/uL 150-450 [facility] Serum or plasma albumin cory urement (mass/volume)Ordered By: Dangelo Botello on 09-03-2022 Albumin [Mass/Vol] 3.1 g/dL 3.2-5.0 [facility] Serum or plasma albumin/glob ulin mass ratioOrdered By: Dangelo Botello on 09-03-2022 Albumin/Globulin [Mass ratio] 0.8 {ratio} 0.9-2.4 [facility] Serum or plasma calcium cory urement (mass/volume)Ordered By: Dangelo Botello on 09-03-2022 Calcium [Mass/Vol] 9.2 mg/dL 8.5-10.1 [facility] Serum or plasma creatinine m easurement (mass/volume)Ordered By: Dangelo Botello on 09-03-2022 Creatinine [Mass/Vol] 1.79 mg/dL 0.70-1.30 [facility] Comment on above: The validity of the calculated GFR & GFRAA in patients over 70 years has not been determined. Clinical correlation is essential. Serum or plasma urea nitroge n measurement (mass/volume)Ordered By: Dangelo Botello on 09-03-2022 Urea nitrogen [Mass/Vol] 17 mg/dL 7-18 [facility] Thin prep Papanicolaou smear with manual screeningOrdered By: Dangelo Botello on 09-03-2022 Thin prep Papanicolaou smear with manual screening 36 U/L 15-37 [facility] Thin prep Papanicolaou smear with manual screening 6 5-15 [facility] Absolute lymphocyte countOrd ered By: Dr. Wei on 06-29-2022 Lymphocytes Auto (Unsp spec) [#/Vol] 0.27 10*3/uL 0.83-4.51 [facility] Basophil percentageOrdered B y: Dr. Wei on 06-29-2022 Basophils/100 WBC (Bld) 0.1 % 0-[address] [facility] Chloride [Moles/Vol] 107 mmol/L 98-107 [facility] Eosinophils/100 WBC (Bld) 0.0 % 0-5 [facility] Glucose [Mass/Vol] 210 mg/dL 74-106 [facility] Comment on above: Glucose result great er than or equal to 200 mg/dLsuggests DIABETES MELLITUS per A.D.A. criteria. Neutrophils (Bld) [#/Vol] 8.6 10*3/uL 2.0-7.7 [facility] Neutrophils/100 WBC (Bld) 91.8 % 47-70 [facility] Potassium [Moles/Vol] 3.9 mmol/L 3.5-5.1 [facility] Sodium [Moles/Vol] 137 mmol/L 136-145 [facility] WBC (Bld) [#/Vol] 9.3 10*3/uL 4.4-11.0 [facility] Basophil percentageOrdered B y: Dr. Lu on 06-29-2022 Cholesterol [Mass/Vol] 126 mg/dL <200 [facility] Comment on above: <200 mg/dL Desirable 200-240 mg/dL Borderline >240 mg/dL High Risk Triglyceride [Mass/Vol] 60 mg/dL <199 [facility] Comment on above: The drugs N-Acetylcy steine and Metamizole may falsely depress this assay.Serum Triglycerides Reference Interval Normal <150 mg/dL Borderline high 150 - 199 mg/dL High 200 - 499 mg/dL Very High > or = 500 mg/dL Blood erythrocytes count (nu mber/volume)Ordered By: Dr. Wei on 06-29-2022 RBC (Bld) [#/Vol] 4.28 10*6/uL 4.6-6.2 [facility] Blood hemoglobin measurement (mass/volume)Ordered By: Dr. Wei on 06-29-2022 Hemoglobin (Bld) [Mass/Vol] 14.4 g/dL 13.0-16.5 [facility] Blood lymphocytes/100 leukoc ytesOrdered By: Dr. Wei on 06-29-2022 Lymphocytes/100 WBC (Bld) 2.9 % 19-41 [facility] Blood manual differential co mment interpretation (narrative result)Ordered By: Dr. Wei on 06-29-2022 Manual differential comment Piyush (Bld) [Interp] SCANNED [facility] Comment on above: LYMPHOPENIA Blood monocytes/100 leukocyt esOrdered By: Dr. Wei on 06-29-2022 Monocytes/100 WBC (Bld) 4.4 % 0-10 [facility] Blood platelet mean volumeOr dered By: Dr. Wei on 06-29-2022 Platelet mean volume (Bld) [Entitic vol] 11.4 fL 6.2-12.0 [facility] Determination of erythrocyte mean corpuscular volume (MCV)Ordered By: Dr. Wei on 06-29-2022 MCV (RBC) [Entitic vol] 101.9 fL 80-94 [facility] Hematocrit Auto (Bld) [Volum e fraction]Ordered By: Dr. Wei on 06-29-2022 Hematocrit (Bld) [Volume fraction] 43.6 % 40-54 [facility] Laboratory - Chemistry and C hemistry - challengeOrdered By: Dr. Wei on 06-29-2022 CO2 [Moles/Vol] 27.0 mmol/L 21.0-32.0 [facility] Urea nitrogen/Creatinine [Mass ratio] 16.2 mg/mg 10-20 [facility] Laboratory - Hematology and Cell countsOrdered By: Dr. Wei on 06-29-2022 Anisocytosis Ql (Bld) 2+ [facility] Erythrocyte distribution width (RBC) [Entitic vol] 66.1 fL 35.1-43.9 [facility] Erythrocyte distribution width (RBC) [Ratio] 18.0 % 11.6-14.6 [facility] Immature granulocytes/100 WBC (Bld) 0.800 % 0.0-0.9 [facility] Comment on above: IG% - Immature Granu locytes (promyelocytes, myelocytes and metamyelocytes) > 1% indicates that a LEFT SHIFT is Present. MCH (RBC) [Entitic mass] 33.6 pg 27.0-32.0 [facility] Nucleated RBC/100 WBC (Bld) [Ratio] 2.7 % 0-5 [facility] MCHC Auto (RBC) [Mass/Vol]Or dered By: Dr. Wei on 06-29-2022 MCHC (RBC) [Mass/Vol] 33.0 g/dL 32-36 [facility] No Panel InformationOrdered By: Dr. Wei on 06-29-2022 Estimated Creatinine Clearance Calc 55.69 ml/min [facility] Estimated GFR (MDRD) Amer 60 mL/min >60 [facility] Comment on above: GFR Calc Estimated GFR (MDRD) Non-Af Amer 50 mL/min >60 [facility] Comment on above: Non- GFR Calc Platelets bldOrdered By: Dr. Wei on 06-29-2022 Platelets (Bld) [#/Vol] 191 10*3/uL 150-450 [facility] Serum or plasma calcium cory urement (mass/volume)Ordered By: Dr. Wei on 06-29-2022 Calcium [Mass/Vol] 9.1 mg/dL 8.5-10.1 [facility] Serum or plasma cholesterol in HDL measurement (mass/volume)Ordered By: Dr. Lu on 06-29-2022 Cholesterol in HDL [Mass/Vol] 54 mg/dL >40 [facility] Comment on above: The drugs N-Acetylcy steine and Metamizole may falsely depress this assay. Reference Range HDL <40 mg/dL Low HDL Cholesterol HDL >or= 60 mg/dL High HDL Cholesterol Serum or plasma cholesterol in VLDL measurement (mass/volume)Ordered By: Dr. Lu on 06-29-2022 Cholesterol in VLDL [Mass/Vol] 12 mg/dL 5-40 [facility] Serum or plasma creatinine m easurement (mass/volume)Ordered By: Dr. Wei on 06-29-2022 Creatinine [Mass/Vol] 1.54 mg/dL 0.70-1.30 [facility] Comment on above: The validity of the calculated GFR & GFRAA in patients over 70 years has not been determined. Clinical correlation is essential. Serum or plasma low density lipoprotein (LDL) cholesterol measurement (mass/volume)Ordered By: Dr. Lu on 06-29-2022 Cholesterol in LDL [Mass/Vol] 60 mg/dL 0-130 [facility] Serum or plasma urea nitroge n measurement (mass/volume)Ordered By: Dr. Wei on 06-29-2022 Urea nitrogen [Mass/Vol] 25 mg/dL 7-18 [facility] Thin prep Papanicolaou smear with manual screeningOrdered By: Dr. Wei on 06-29-2022 Thin prep Papanicolaou smear with manual screening 3 5-15 [facility] Basophil percentageOrdered B y: Dr. Lu on 06-28-2022 Bilirubin [Mass/Vol] 0.80 mg/dL 0.20-1.00 [facility] Comment on above: For patients on eltr ombopag therapy, use of Dimension [place] TBIL is not recommended. Protein [Mass/Vol] 6.7 g/dL 6.4-8.2 [facility] Blood polychromasia detectio n by light microscopyOrdered By: Dr. Lu on 06-28-2022 Polychromasia LM Ql (Bld) RARE [facility] INR in Blood by Coagulation assayOrdered By: Dr. Lu on 06-28-2022 INR Coag (Bld) [Relative time] 2.1 {INR} [facility] Laboratory - Chemistry and C hemistry - challengeOrdered By: Dr. Lu on 06-28-2022 ALP [Catalytic activity/Vol] 111 U/L 45-117 [facility] ALT [Catalytic activity/Vol] 146 U/L 16-61 [facility] Globulin (S) [Mass/Vol] 3.6 g/dL 2.2-4.2 [facility] Magnesium [Mass/Vol] 2.1 mg/dL 1.6-2.6 [facility] Laboratory - CoagulationOrde red By: Dr. Lu on 06-28-2022 PT Coag (PPP) [Time] 22.9 s 11.7-14.9 [facility] Laboratory - Microbiology an d Antimicrobial susceptibilityOrdered By: Estelita Lu on 06-28-2022 Respiratory pathogens DNA and RNA 12b panel SANDOVAL+probe (Unsp spec) [facility] Laboratory - Microbiology an d Antimicrobial susceptibilityOrdered By: Dr. Lu on 06-28-2022 Respiratory pathogens DNA and RNA 12b panel SANDOVAL+probe (Unsp spec) [facility] Macrocytes detectionOrdered By: Dr. Lu on 06-28-2022 Macrocytes Ql (Bld) 1+ [facility] No Panel InformationOrdered By: Dr. Lu on 06-28-2022 Troponin I High Sensitivity 87 pg/mL 3.0-78.0 [facility] Comment on above: Please Note: New [place] t Units and Gender Specific Reference Ranges. For more information see Policy Stat Procedure [place] High Sensitivity Troponin (TNIH) and attachments. Thyroid Stimulating Hormone (TSH) 2.20 uIU/mL 0.358-3.74 [facility] Ovalocyte detectionOrdered B y: Dr. Lu on 06-28-2022 Ovalocytes LM Ql (Bld) RARE [facility] Serum or plasma albumin cory urement (mass/volume)Ordered By: Dr. Lu on 06-28-2022 Albumin [Mass/Vol] 3.1 g/dL 3.2-5.0 [facility] Serum or plasma albumin/glob ulin mass ratioOrdered By: Dr. Lu on 06-28-2022 Albumin/Globulin [Mass ratio] 0.9 {ratio} 0.9-2.4 [facility] Serum procalcitonin measurem entOrdered By: Dr. Lu on 06-28-2022 Procalcitonin [Mass/Vol] 0.09 ng/mL 0.00-0.09 [facility] Comment on above: A procalcitonin (PCT ) [...] manual screening 130 U/L 15-37 [facility] Absolute lymphocyte countOrd ered By: Dr. Hastings on 06-27-2022 Lymphocytes Auto (Unsp spec) [#/Vol] 0.93 10*3/uL 0.83-4.51 [facility] Basophil percentageOrdered B y: Dr. Lu on 06-27-2022 Basophil percentage 2.8 mg/dL 2.5-4.9 [facility] Basophil percentageOrdered B y: Dr. Hastings on 06-27-2022 Basophils/100 WBC (Bld) 0.4 % 0-1 [facility] Chloride [Moles/Vol] 109 mmol/L 98-107 [facility] Eosinophils/100 WBC (Bld) 0.5 % 0-5 [facility] Glucose [Mass/Vol] 127 mg/dL 74-106 [facility] Comment on above: Fasting Glucose resu lt greater than or equal to 126 mg/dL suggests DIABETES MELLITUS per A.D.A. criteria. Neutrophils (Bld) [#/Vol] 4.2 10*3/uL 2.0-7.7 [facility] Neutrophils/100 WBC (Bld) 75.4 % 47-70 [facility] Potassium [Moles/Vol] 3.5 mmol/L 3.5-5.1 [facility] Sodium [Moles/Vol] 140 mmol/L 136-145 [facility] WBC (Bld) [#/Vol] 5.5 10*3/uL 4.4-11.0 [facility] Blood erythrocytes count (nu mber/volume)Ordered By: Dr. Hastings on 06-27-2022 RBC (Bld) [#/Vol] 4.24 10*6/uL 4.6-6.2 [facility] Blood hemoglobin measurement (mass/volume)Ordered By: Dr. Hastings on 06-27-2022 Hemoglobin (Bld) [Mass/Vol] 14.6 g/dL 13.0-16.5 [facility] Blood lymphocytes/100 leukoc ytesOrdered By: Dr. Hastings on 06-27-2022 Lymphocytes/100 WBC (Bld) 16.8 % 19-41 [facility] Blood manual differential co mment interpretation (narrative result)Ordered By: Dr. Hastings on 06-27-2022 Manual differential comment Piyush (Bld) [Interp] SCANNED [facility] Blood monocytes/100 leukocyt esOrdered By: [address] Hastings on 06-27-2022 Monocytes/100 WBC (Bld) 6.0 % 0-10 [facility] Blood platelet mean volumeOr dered By: Dr. Hastings on 06-27-2022 Platelet mean volume (Bld) [Entitic vol] 11.2 fL 6.2-12.0 [facility] Determination of erythrocyte mean corpuscular volume (MCV)Ordered By: Dr. Hastings on 06-27-2022 MCV (RBC) [Entitic vol] 103.3 fL 80-94 [facility] Hematocrit Auto (Bld) [Volum e fraction]Ordered By: Dr. Hastings on 06-27-2022 Hematocrit (Bld) [Volume fraction] 43.8 % 40-54 [facility] INR in Blood by Coagulation assayOrdered By: Dr. Hastings on 06-27-2022 INR Coag (Bld) [Relative time] 2.0 {INR} [facility] Laboratory - Chemistry and C hemistry - challengeOrdered By: Dr. Hastings on 06-27-2022 CO2 [Moles/Vol] 26.0 mmol/L 21.0-32.0 [facility] Natriuretic peptide B (Bld) [Mass/Vol] 278.3 pg/mL 0-100 [facility] Urea nitrogen/Creatinine [Mass ratio] 14.7 mg/mg 10-20 [facility] Laboratory - CoagulationOrde red By: Dr. Hastings on 06-27-2022 aPTT Coag (Bld) [Time] 46.5 s 24.1-36.2 [facility] PT Coag (PPP) [Time] 22.5 s 11.7-14.9 [facility] Laboratory - Hematology and Cell countsOrdered By: Dr. Hastings on 06-27-2022 Anisocytosis Ql (Bld) 2+ [facility] Erythrocyte distribution width (RBC) [Entitic vol] 67.8 fL 35.1-43.9 [facility] Erythrocyte distribution width (RBC) [Ratio] 17.9 % 11.6-14.6 [facility] Immature granulocytes/100 WBC (Bld) 0.900 % 0.0-0.9 [facility] Comment on above: IG% - Immature Granu locytes (promyelocytes, myelocytes and metamyelocytes) > 1% indicates that a LEFT SHIFT is Present. MCH (RBC) [Entitic mass] 34.4 pg 27.0-32.0 [facility] Nucleated RBC/100 WBC (Bld) [Ratio] 2.9 % 0-5 [facility] MCHC Auto (RBC) [Mass/Vol]Or dered By: Dr. Hastings on 06-27-2022 MCHC (RBC) [Mass/Vol] 33.3 g/dL 32-36 [facility] Macrocytes detectionOrdered By: Dr. Hastings on 06-27-2022 Macrocytes Ql (Bld) 2+ [facility] No Panel InformationOrdered By: Dr. Hastings on 06-27-2022 Estimated Creatinine Clearance Calc 46.61 ml/min [facility] Estimated GFR (MDRD) Amer 49 mL/min >60 [facility] Comment on above: GFR Calc Estimated GFR (MDRD) Non-Af Amer 40 mL/min >60 [facility] Comment on above: Non- GFR Calc Troponin I High Sensitivity 92 pg/mL 3.0-78.0 [facility] Comment on above: Please Note: New [place] t Units and Gender Specific Reference Ranges. For more information see Policy Stat Procedure [place] High Sensitivity Troponin (TNIH) and attachments. Platelets bldOrdered By: Dr. Hastings on 06-27-2022 Platelets (Bld) [#/Vol] 201 10*3/uL 150-450 [facility] Serum or plasma calcium cory urement (mass/volume)Ordered By: Dr. Hastings on 06-27-2022 Calcium [Mass/Vol] 8.9 mg/dL 8.5-10.1 [facility] Serum or plasma creatinine m easurement (mass/volume)Ordered By: Dr. Hastings on 06-27-2022 Creatinine [Mass/Vol] 1.84 mg/dL 0.70-1.30 [facility] Comment on above: The validity of the calculated GFR & GFRAA in patients over 70 years has not been determined. Clinical correlation is essential. Serum or plasma urea nitroge n measurement (mass/volume)Ordered By: Dr. Hastings on 06-27-2022 Urea nitrogen [Mass/Vol] 27 mg/dL 7-18 [facility] Thin prep Papanicolaou smear with manual screeningOrdered By: Dr. Hastings on 06-27-2022 Thin prep Papanicolaou smear with manual screening 5 5-15 [facility] Basophil percentageOrdered B y: Dr. Che on 05-20-2022 Chloride [Moles/Vol] 103 mmol/L 98-107 [facility] Glucose [Mass/Vol] 170 mg/dL 74-106 [facility] Comment on above: Fasting Glucose resu lt greater than or equal to 126 mg/dL suggests DIABETES MELLITUS per A.D.A. criteria. Potassium [Moles/Vol] 3.3 mmol/L 3.5-5.1 [facility] Sodium [Moles/Vol] 140 mmol/L 136-145 [facility] INR in Blood by Coagulation assayOrdered By: Dr. Dukes on 05-20-2022 INR Coag (Bld) [Relative time] 2.7 {INR} [facility] Laboratory - Chemistry and C hemistry - challengeOrdered By: Dr. Che on 05-20-2022 CO2 [Moles/Vol] 30.0 mmol/L 21.0-32.0 [facility] Urea nitrogen/Creatinine [Mass ratio] 11.8 mg/mg 10-20 [facility] Laboratory - CoagulationOrde red By: Dr. Dukes on 05-20-2022 PT Coag (PPP) [Time] 28.3 s 11.7-14.9 [facility] No Panel InformationOrdered By: Dr. Che on 05-20-2022 Estimated Creatinine Clearance Calc 48.18 ml/min [facility] Estimated GFR (MDRD) Amer 51 mL/min >60 [facility] Comment on above: GFR Calc Estimated GFR (MDRD) Non-Af Amer 42 mL/min >60 [facility] Comment on above: Non- GFR Calc Serum or plasma calcium cory urement (mass/volume)Ordered By: Dr. Che on 05-20-2022 Calcium [Mass/Vol] 8.8 mg/dL 8.5-10.1 [facility] Serum or plasma creatinine m easurement (mass/volume)Ordered By: Dr. Che on 05-20-2022 Creatinine [Mass/Vol] 1.78 mg/dL 0.70-1.30 [facility] Comment on above: The validity of the calculated GFR & GFRAA in patients over 70 years has not been determined. Clinical correlation is essential. Serum or plasma urea nitroge n measurement (mass/volume)Ordered By: Dr. Che on 05-20-2022 Urea nitrogen [Mass/Vol] 21 mg/dL 09-22 [facility] Thin prep Papanicolaou smear with manual screeningOrdered By: Dr. Che on 05-20-2022 Thin prep Papanicolaou smear with manual screening 7 07-20 [facility] Absolute lymphocyte countOrd ered By: Dr. Dukes on 05-19-2022 Lymphocytes Auto (Unsp spec) [#/Vol] 0.92 10*3/uL 0.83-4.51 [facility] Basophil percentageOrdered B y: Dr. Dukes on 05-19-2022 Basophils/100 WBC (Bld) 0.2 % 0-1 [facility] Bilirubin [Mass/Vol] 0.70 mg/dL 0.20-1.00 [facility] Comment on above: For patients on eltr ombopag therapy, use of Dimension [place] TBIL is not recommended. Eosinophils/100 WBC (Bld) 0.5 % 0-5 [facility] Neutrophils (Bld) [#/Vol] 5.0 10*3/uL 2.0-7.7 [facility] Neutrophils/100 WBC (Bld) 80.2 % 47-70 [facility] Protein [Mass/Vol] 6.4 g/dL 6.4-8.2 [facility] WBC (Bld) [#/Vol] 6.2 10*3/uL 4.4-11.0 [facility] Blood erythrocytes count (nu mber/volume)Ordered By: Dr. Dukes on 05-19-2022 RBC (Bld) [#/Vol] 3.95 10*6/uL 4.6-6.2 [facility] Blood hemoglobin measurement (mass/volume)Ordered By: Dr. Dukes on 05-19-2022 Hemoglobin (Bld) [Mass/Vol] 13.5 g/dL 13.0-16.5 [facility] Blood lymphocytes/100 leukoc ytesOrdered By: Dr. Dukes on 05-19-2022 Lymphocytes/100 WBC (Bld) 14.8 % 19-41 [facility] Blood manual differential co mment interpretation (narrative result)Ordered By: Dr. Dukes on 05-19-2022 Manual differential comment Piyush (Bld) [Interp] SCANNED [facility] Blood monocytes/100 leukocyt esOrdered By: Dr. Dukes on 05-19-2022 Monocytes/100 WBC (Bld) 4.0 % 0-10 [facility] Blood platelet mean volumeOr dered By: Dr. Dukes on 05-19-2022 Platelet mean volume (Bld) [Entitic vol] 10.0 fL 6.2-12.0 [facility] Blood polychromasia detectio n by light microscopyOrdered By: Dr. Dukes on 05-19-2022 Polychromasia LM Ql (Bld) RARE [facility] Determination of erythrocyte mean corpuscular volume (MCV)Ordered By: Dr. Dukes on 05-19-2022 MCV (RBC) [Entitic vol] 104.1 fL 80-94 [facility] Hematocrit Auto (Bld) [Volum e fraction]Ordered By: Dr. Dukes on 05-19-2022 Hematocrit (Bld) [Volume fraction] 41.1 % 40-54 [facility] Laboratory - Chemistry and C hemistry - challengeOrdered By: Dr. Dukes on 05-19-2022 ALP [Catalytic activity/Vol] 64 U/L 45-117 [facility] ALT [Catalytic activity/Vol] 61 U/L 16-61 [facility] Globulin (S) [Mass/Vol] 3.4 g/dL 2.2-4.2 [facility] Magnesium [Mass/Vol] 2.1 mg/dL 1.6-2.6 [facility] Laboratory - Hematology and Cell countsOrdered By: Dr. Dukes on 05-19-2022 Anisocytosis Ql (Bld) 2+ [facility] Erythrocyte distribution width (RBC) [Entitic vol] 74.2 fL 35.1-43.9 [facility] Erythrocyte distribution width (RBC) [Ratio] 19.1 % 11.6-14.6 [facility] Immature granulocytes/100 WBC (Bld) 0.300 % 0.0-0.9 [facility] Comment on above: IG% - Immature Granu locytes (promyelocytes, myelocytes and metamyelocytes) > 1% indicates that a LEFT SHIFT is Present. MCH (RBC) [Entitic mass] 34.2 pg 27.0-32.0 [facility] Nucleated RBC/100 WBC (Bld) [Ratio] 0.6 % 0-5 [facility] Laboratory - Microbiology an d Antimicrobial susceptibilityOrdered By: Dr. Dukes on 05-19-2022 Respiratory pathogens DNA and RNA 12b panel SANDOVAL+probe (Unsp spec) [facility] MCHC Auto (RBC) [Mass/Vol]Or dered By: Dr. Dukes on 05-19-2022 MCHC (RBC) [Mass/Vol] 32.8 g/dL 32-36 [facility] Macrocytes detectionOrdered By: Dr. Dukes on 05-19-2022 Macrocytes Ql (Bld) 1+ [facility] No Panel InformationOrdered By: Dr. Dukes on 05-19-2022 Thyroid Stimulating Hormone (TSH) 1.31 uIU/mL 0.358-3.74 [facility] Ovalocyte detectionOrdered B y: Dr. Dukes on 05-19-2022 Ovalocytes LM Ql (Bld) RARE [facility] Platelets bldOrdered By: Dr. Dukes on 05-19-2022 Platelets (Bld) [#/Vol] 173 10*3/uL 150-450 [facility] Serum or plasma albumin cory urement (mass/volume)Ordered By: Dr. Dukes on 05-19-2022 Albumin [Mass/Vol] 3.0 g/dL 3.2-5.0 [facility] Serum or plasma albumin/glob ulin mass ratioOrdered By: Dr. Dukes on 05-19-2022 Albumin/Globulin [Mass ratio] 0.9 {ratio} 0.9-2.4 [facility] Thin prep Papanicolaou smear with manual screeningOrdered By: Dr. Dukes on 05-19-2022 Thin prep Papanicolaou smear with manual screening 38 U/L 15-37 [facility] Absolute lymphocyte countOrd ered By: Dr. Banda on 05-18-2022 Lymphocytes Auto (Unsp spec) [#/Vol] 0.87 10*3/uL 0.83-4.51 [facility] Basophil percentageOrdered B y: Dr. Banda on 05-18-2022 Basophils/100 WBC (Bld) 0.5 % 0-[address] [facility] Chloride [Moles/Vol] 105 mmol/L 98-107 [facility] Eosinophils/100 WBC (Bld) 0.2 % 0-5 [facility] Glucose [Mass/Vol] 124 mg/dL 74-106 [facility] Comment on above: Fasting Glucose resu lt from 100 to 125 mg/dL suggests IMPAIRED HOMEOSTASIS per A.D.A. criteria. Neutrophils (Bld) [#/Vol] 5.3 10*3/uL 2.0-7.7 [facility] Neutrophils/100 WBC (Bld) 80.8 % 47-70 [facility] Potassium [Moles/Vol] 3.8 mmol/L 3.5-5.1 [facility] Comment on above: Slight Hemolysis, Re sult may be falsely increased. Sodium [Moles/Vol] 143 mmol/L 136-145 [facility] WBC (Bld) [#/Vol] 6.6 10*3/uL 4.4-11.0 [facility] Blood erythrocytes count (nu mber/volume)Ordered By: Dr. Banda on 05-18-2022 RBC (Bld) [#/Vol] 4.33 10*6/uL 4.6-6.2 [facility] Blood hemoglobin measurement (mass/volume)Ordered By: Dr. Banda on 05-18-2022 Hemoglobin (Bld) [Mass/Vol] 14.6 g/dL 13.0-16.5 [facility] Blood lymphocytes/100 leukoc ytesOrdered By: Dr. Banda on 05-18-2022 Lymphocytes/100 WBC (Bld) 13.3 % 19-41 [facility] Blood monocytes/100 leukocyt esOrdered By: Dr. Banda on 05-18-2022 Monocytes/100 WBC (Bld) 4.9 % 0-10 [facility] Blood platelet adequacy dete ction by light microscopyOrdered By: Dr. Banda on 05-18-2022 Platelets LM Ql (Bld) SLT DEC ADEQ [facility] Blood platelet mean volumeOr dered By: Dr. Banda on 05-18-2022 Platelet mean volume (Bld) [Entitic vol] 10.3 fL 6.2-12.0 [facility] CNPNon 05-18-2022 CNPN Telephone (CARMOB) ----- YEFRI YANEZ ([id number]) 1965 M [facility] Date Time Provider Department 05/18/22 SAYRA TELLO During your visit today, we recorded the following information about you: Abbey Nash 05/18/2022 8:28 AM Signed Received a records request from [facility]. Will pull and fax records. Abbey Nash 05/18/2022 10:51 AM Signed Faxed records to [facility] at [phone] Allergies As of Date: 05/18/2022 Noted Allergy [...] by this patient by: SPOUSE Safia Carr, [facility] Problem List As Of Date 05/18/2022 Noted [...] Encounter Status:Closed by ABBEY NASH on 05/18/22 [facility] COVID-19 virus antigen assay Ordered By: Dr. Dukes on 05-18-2022 SARS-CoV-2 (COVID-19) Ag IA.rapid Ql (Resp) Not detected Not Detect [facility] Comment on above: Normal Reference Ran ge: [...] (RBC) [Entitic vol] 102.1 fL 80-94 [facility] Hematocrit Auto (Bld) [Volum e fraction]Ordered By: Dr. Banda on 05-18-2022 Hematocrit (Bld) [Volume fraction] 44.2 % 40-54 [facility] INR in Blood by Coagulation assayOrdered By: Dr. Banda on 05-18-2022 INR Coag (Bld) [Relative time] 2.8 {INR} [facility] Laboratory - Chemistry and C hemistry - challengeOrdered By: Dr. Banda on 05-18-2022 CO2 [Moles/Vol] 31.0 mmol/L 21.0-32.0 [facility] Natriuretic peptide B (Bld) [Mass/Vol] 343.5 pg/mL 0-100 [facility] Urea nitrogen/Creatinine [Mass ratio] 11.5 mg/mg 10-20 [facility] Laboratory - CoagulationOrde red By: Dr. Banda on 05-18-2022 PT Coag (PPP) [Time] 28.9 s 11.7-14.9 [facility] Laboratory - Hematology and Cell countsOrdered By: Dr. Banda on 05-18-2022 Anisocytosis Ql (Bld) 2+ [facility] Erythrocyte distribution width (RBC) [Entitic vol] 74.1 fL 35.1-43.9 [facility] Erythrocyte distribution width (RBC) [Ratio] 19.4 % 11.6-14.6 [facility] Immature granulocytes/100 WBC (Bld) 0.300 % 0.0-0.9 [facility] Comment on above: IG% - Immature Granu locytes (promyelocytes, myelocytes and metamyelocytes) > 1% indicates that a LEFT SHIFT is Present. MCH (RBC) [Entitic mass] 33.7 pg 27.0-32.0 [facility] Nucleated RBC/100 WBC (Bld) [Ratio] 0.6 % 0-5 [facility] Laboratory - Microbiology an d Antimicrobial susceptibilityOrdered By: Alicia Dukes on 05-18-2022 Respiratory pathogens DNA and RNA 12b panel SANDOVAL+probe (Unsp spec) [facility] MCHC Auto (RBC) [Mass/Vol]Or dered By: Dr. Banda on 05-18-2022 MCHC (RBC) [Mass/Vol] 33.0 g/dL 32-36 [facility] No Panel InformationOrdered By: Dr. Banda on 05-18-2022 Estimated Creatinine Clearance Calc 54.62 ml/min [facility] Estimated GFR (MDRD) Amer 59 mL/min >60 [facility] Comment on above: GFR Calc Estimated GFR (MDRD) Non-Af Amer 48 mL/min >60 [facility] Comment on above: Non- GFR Calc Troponin I High Sensitivity 73 pg/mL 3.0-78.0 [facility] Comment on above: Please Note: New [place] t Units and Gender Specific Reference Ranges. For more information see Policy Stat Procedure [place] High Sensitivity Troponin (TNIH) and attachments. Ovalocyte detectionOrdered B y: Dr. Banda on 05-18-2022 Ovalocytes LM Ql (Bld) 1+ [facility] Platelets bldOrdered By: Dr. Banda on 05-18-2022 Platelets (Bld) [#/Vol] 183 10*3/uL 150-450 [facility] Serum or plasma calcium cory urement (mass/volume)Ordered By: Dr. Banda on 05-18-2022 Calcium [Mass/Vol] 9.2 mg/dL 8.5-10.1 [facility] Serum or plasma creatinine m easurement (mass/volume)Ordered By: Dr. Banda on 05-18-2022 Creatinine [Mass/Vol] 1.57 mg/dL 0.70-1.30 [facility] Comment on above: The validity of the calculated GFR & GFRAA in patients over 70 years has not been determined. Clinical correlation is essential. Serum or plasma urea nitroge n measurement (mass/volume)Ordered By: Dr. Banda on 05-18-2022 Urea nitrogen [Mass/Vol] 18 mg/dL 7-18 [facility] Thin prep Papanicolaou smear with manual screeningOrdered By: Dr. Banda on 05-18-2022 Thin prep Papanicolaou smear with manual screening 7 5-15 [facility] Basophil percentageOrdered B y: Dr. Chiu on 04-16-2022 Chloride [Moles/Vol] 105 mmol/L 98-107 [facility] Glucose [Mass/Vol] 110 mg/dL 74-106 [facility] Comment on above: Fasting Glucose resu lt from 100 to 125 mg/dL suggests IMPAIRED HOMEOSTASIS per A.D.A. criteria. Potassium [Moles/Vol] 3.7 mmol/L 3.5-5.1 [facility] Sodium [Moles/Vol] 141 mmol/L 136-145 [facility] INR in Blood by Coagulation assayOrdered By: Dr. Camacho on 04-16-2022 INR Coag (Bld) [Relative time] 2.1 {INR} [facility] Laboratory - Chemistry and C hemistry - challengeOrdered By: Dr. Chiu on 04-16-2022 CO2 [Moles/Vol] 31.0 mmol/L 21.0-32.0 [facility] Urea nitrogen/Creatinine [Mass ratio] 17.2 mg/mg 10-20 [facility] Laboratory - CoagulationOrde red By: Dr. Camacho on 04-16-2022 PT Coag (PPP) [Time] 23.6 s 11.7-14.9 [facility] No Panel InformationOrdered By: Dr. Chiu on 04-16-2022 Estimated Creatinine Clearance Calc 49.19 ml/min [facility] Estimated GFR (MDRD) Amer 54 mL/min >60 [facility] Comment on above: GFR Calc Estimated GFR (MDRD) Non-Af Amer 45 mL/min >60 [facility] Comment on above: Non- GFR Calc Serum or plasma calcium cory urement (mass/volume)Ordered By: Dr. Chiu on 04-16-2022 Calcium [Mass/Vol] 9.0 mg/dL 8.5-10.1 [facility] Serum or plasma creatinine m easurement (mass/volume)Ordered By: Dr. Chiu on 04-16-2022 Creatinine [Mass/Vol] 1.69 mg/dL 0.70-1.30 [facility] Comment on above: The validity of the calculated GFR & GFRAA in patients over 70 years has not been determined. Clinical correlation is essential. Serum or plasma urea nitroge n measurement (mass/volume)Ordered By: Dr. Chiu on 04-16-2022 Urea nitrogen [Mass/Vol] 29 mg/dL 7-18 [facility] Thin prep Papanicolaou smear with manual screeningOrdered By: Dr. Chiu on 04-16-2022 Thin prep Papanicolaou smear with manual screening 5 5-15 [facility] Absolute lymphocyte countOrd ered By: Dr. Chiu on 04-15-2022 Lymphocytes Auto (Unsp spec) [#/Vol] 0.77 10*3/uL 0.83-4.51 [facility] Basophil percentageOrdered B y: Dr. Chiu on 04-15-2022 Basophil percentage 3.9 mg/dL 2.5-4.9 [facility] Basophils/100 WBC (Bld) 0.6 % 0-1 [facility] Cholesterol [Mass/Vol] 190 mg/dL <200 [facility] Comment on above: <200 mg/dL Desirable 200-240 mg/dL Borderline >240 mg/dL High Risk Eosinophils/100 WBC (Bld) 0.4 % 0-5 [facility] Neutrophils (Bld) [#/Vol] 3.8 10*3/uL 2.0-7.7 [facility] Neutrophils/100 WBC (Bld) 74.5 % 47-70 [facility] Triglyceride [Mass/Vol] 159 mg/dL <199 [facility] Comment on above: The drugs N-Acetylcy steine and Metamizole may falsely depress this assay.Serum Triglycerides Reference Interval Normal <150 mg/dL Borderline high 150 - 199 mg/dL High 200 - 499 mg/dL Very High > or = 500 mg/dL WBC (Bld) [#/Vol] 5.1 10*3/uL 4.4-11.0 [facility] Blood erythrocytes count (nu mber/volume)Ordered By: Dr. Chiu on 04-15-2022 RBC (Bld) [#/Vol] 3.92 10*6/uL 4.6-6.2 [facility] Blood hemoglobin measurement (mass/volume)Ordered By: Dr. Chiu on 04-15-2022 Hemoglobin (Bld) [Mass/Vol] 12.6 g/dL 13.0-16.5 [facility] Blood lymphocytes/100 leukoc ytesOrdered By: Dr. Chiu on 04-15-2022 Lymphocytes/100 WBC (Bld) 15.1 % 19-41 [facility] Blood monocytes/100 leukocyt esOrdered By: Dr. Chiu on 04-15-2022 Monocytes/100 WBC (Bld) 8.4 % 0-10 [facility] Blood platelet mean volumeOr dered By: Dr. Chiu on 04-15-2022 Platelet mean volume (Bld) [Entitic vol] 11.1 fL 6.2-12.0 [facility] Determination of erythrocyte mean corpuscular volume (MCV)Ordered By: Dr. Chiu on 04-15-2022 MCV (RBC) [Entitic vol] 98.2 fL 80-94 [facility] Hematocrit Auto (Bld) [Volum e fraction]Ordered By: Dr. Chiu on 04-15-2022 Hematocrit (Bld) [Volume fraction] 38.5 % 40-54 [facility] Laboratory - Chemistry and C hemistry - challengeOrdered By: Dr. Chiu on 04-15-2022 Magnesium [Mass/Vol] 2.1 mg/dL 1.6-2.6 [facility] Comment on above: Moderate Hemolysis, Result may be falsely increased. Laboratory - Hematology and Cell countsOrdered By: Dr. Chiu on 04-15-2022 Anisocytosis Ql (Bld) 2+ [facility] Erythrocyte distribution width (RBC) [Entitic vol] 73.5 fL 35.1-43.9 [facility] Erythrocyte distribution width (RBC) [Ratio] 20.7 % 11.6-14.6 [facility] Immature granulocytes/100 WBC (Bld) 1.000 % 0.0-0.9 [facility] Comment on above: IG% - Immature Granu locytes (promyelocytes, myelocytes and metamyelocytes) > 1% indicates that a LEFT SHIFT is Present. MCH (RBC) [Entitic mass] 32.1 pg 27.0-32.0 [facility] Nucleated RBC/100 WBC (Bld) [Ratio] 5.7 % 0-5 [facility] MCHC Auto (RBC) [Mass/Vol]Or dered By: Dr. Chiu on 04-15-2022 MCHC (RBC) [Mass/Vol] 32.7 g/dL 32-36 [facility] Macrocytes detectionOrdered By: Dr. Chiu on 04-15-2022 Macrocytes Ql (Bld) 1+ [facility] Platelets bldOrdered By: Dr. Chiu on 04-15-2022 Platelets (Bld) [#/Vol] 212 10*3/uL 150-450 [facility] Serum or plasma cholesterol in HDL measurement (mass/volume)Ordered By: Dr. Chiu on 04-15-2022 Cholesterol in HDL [Mass/Vol] 39 mg/dL >40 [facility] Comment on above: The drugs N-Acetylcy steine and Metamizole may falsely depress this assay. Reference Range HDL <40 mg/dL Low HDL Cholesterol HDL >or= 60 mg/dL High HDL Cholesterol Serum or plasma cholesterol in VLDL measurement (mass/volume)Ordered By: Dr. Chiu on 04-15-2022 Cholesterol in VLDL [Mass/Vol] 32 mg/dL 5-40 [facility] Serum or plasma low density lipoprotein (LDL) cholesterol measurement (mass/volume)Ordered By: Dr. Chiu on 04-15-2022 Cholesterol in LDL [Mass/Vol] 119 mg/dL 0-130 [facility] Basophil percentageOrdered B y: Dr. Camacho on 04-14-2022 Bilirubin [Mass/Vol] 1.20 mg/dL 0.20-1.00 [facility] Comment on above: For patients on eltr ombopag therapy, use of Dimension [place] TBIL is not recommended. Protein [Mass/Vol] 6.5 g/dL 6.4-8.2 [facility] Blood manual differential co mment interpretation (narrative result)Ordered By: Dr. Camacho on 04-14-2022 Manual differential comment Piyush (Bld) [Interp] SCANNED [facility] Laboratory - Chemistry and C hemistry - challengeOrdered By: Dr. Camacho on 04-14-2022 ALP [Catalytic activity/Vol] 75 U/L 45-117 [facility] ALT [Catalytic activity/Vol] 46 U/L 16-61 [facility] Globulin (S) [Mass/Vol] 3.7 g/dL 2.2-4.2 [facility] No Panel InformationOrdered By: Dr. Camacho on 04-14-2022 Troponin I High Sensitivity 121 pg/mL 3.0-78.0 [facility] Comment on above: Critical Result(s) C alled at: 04:02:32 04/14/2022 by: CHERI Callahan RN ICU. Results read back by same. Please Note: New Test Units and Gender Specific Reference Ranges. For more information see Policy Stat Procedure [place] High Sensitivity Troponin (TNIH) and attachments. No Panel InformationOrdered By: ED PROVIDER on 04-14-2022 Troponin I High Sensitivity 133 pg/mL 3.0-78.0 [facility] Comment on above: Critical Result(s) C alled at: 00:45:24 04/14/2022 by: Mello KAUFFMAN RN (ED) Results read back by same. Please Note: New Test Units and Gender Specific Reference Ranges. For more information see Policy Stat Procedure [place] High Sensitivity Troponin (TNIH) and attachments. Serum or plasma albumin cory urement (mass/volume)Ordered By: Dr. Camacho on 04-14-2022 Albumin [Mass/Vol] 2.8 g/dL 3.2-5.0 [facility] Serum or plasma albumin/glob ulin mass ratioOrdered By: Dr. Camacho on 04-14-2022 Albumin/Globulin [Mass ratio] 0.8 {ratio} 0.9-2.4 [facility] Thin prep Papanicolaou smear with manual screeningOrdered By: Dr. Agyepong on 04-14-2022 Thin prep Papanicolaou smear with manual screening 37 U/L 15-37 [facility] Absolute lymphocyte countOrd ered By: ED PROVIDER on 04-13-2022 Lymphocytes Auto (Unsp spec) [#/Vol] 0.72 10*3/uL 0.83-4.51 [facility] Absolute lymphocyte countOrd ered By: Dr. Turner on 04-13-2022 Lymphocytes Auto (Unsp spec) [#/Vol] 0.85 10*3/uL 0.83-4.51 [facility] Basophil percentageOrdered B y: ED PROVIDER on 04-13-2022 Basophils/100 WBC (Bld) 0.4 % 0-1 [facility] Chloride [Moles/Vol] 111 mmol/L 98-107 [facility] Eosinophils/100 WBC (Bld) 0.0 % 0-5 [facility] Glucose [Mass/Vol] 125 mg/dL 74-106 [facility] Comment on above: Fasting Glucose resu lt from 100 to 125 mg/dL suggests IMPAIRED HOMEOSTASIS per A.D.A. criteria. Neutrophils (Bld) [#/Vol] 4.5 10*3/uL 2.0-7.7 [facility] Neutrophils/100 WBC (Bld) 79.4 % 47-70 [facility] Potassium [Moles/Vol] 3.7 mmol/L 3.5-5.1 [facility] Sodium [Moles/Vol] 143 mmol/L 136-145 [facility] WBC (Bld) [#/Vol] 5.7 10*3/uL 4.4-11.0 [facility] Basophil percentageOrdered B y: Dr. Turner on 04-13-2022 Basophils/100 WBC (Bld) 0.3 % 0-1 [facility] Bilirubin [Mass/Vol] 1.80 mg/dL 0.20-1.00 [facility] Comment on above: For patients on eltr ombopag therapy, use of Dimension [place] TBIL is not recommended. Chloride [Moles/Vol] 108 mmol/L 98-107 [facility] Eosinophils/100 WBC (Bld) 0.3 % 0-5 [facility] Glucose [Mass/Vol] 108 mg/dL 74-106 [facility] Comment on above: Fasting Glucose resu lt from 100 to 125 mg/dL suggests IMPAIRED HOMEOSTASIS per A.D.A. criteria. Neutrophils (Bld) [#/Vol] 5.0 10*3/uL 2.0-7.7 [facility] Neutrophils/100 WBC (Bld) 78.6 % 47-70 [facility] Potassium [Moles/Vol] 3.5 mmol/L 3.5-5.1 [facility] Protein [Mass/Vol] 7.4 g/dL 6.4-8.2 [facility] Sodium [Moles/Vol] 143 mmol/L 136-145 [facility] WBC (Bld) [#/Vol] 6.4 10*3/uL 4.4-11.0 [facility] Blood erythrocytes count (nu mber/volume)Ordered By: ED PROVIDER on 04-13-2022 RBC (Bld) [#/Vol] 4.03 10*6/uL 4.6-6.2 [facility] Blood erythrocytes count (nu mber/volume)Ordered By: Dr. Turner on 04-13-2022 RBC (Bld) [#/Vol] 4.35 10*6/uL 4.6-6.2 [facility] Blood hemoglobin measurement (mass/volume)Ordered By: ED PROVIDER on 04-13-2022 Hemoglobin (Bld) [Mass/Vol] 12.8 g/dL 13.0-16.5 [facility] Blood hemoglobin measurement (mass/volume)Ordered By: Dr. Turner on 04-13-2022 Hemoglobin (Bld) [Mass/Vol] 13.9 g/dL 13.0-16.5 [facility] Blood lymphocytes/100 leukoc ytesOrdered By: ED PROVIDER on 04-13-2022 Lymphocytes/100 WBC (Bld) 12.7 % 19-41 [facility] Blood lymphocytes/100 leukoc ytesOrdered By: Dr. Turner on 04-13-2022 Lymphocytes/100 WBC (Bld) 13.3 % 19-41 [facility] Blood manual differential co mment interpretation (narrative result)Ordered By: ED PROVIDER on 04-13-2022 Manual differential comment Piyush (Bld) [Interp] SCANNED [facility] Comment on above: 1+ ANISOCYTOSIS Blood manual differential co mment interpretation (narrative result)Ordered By: Dr. Turner on 04-13-2022 Manual differential comment Piyush (Bld) [Interp] SCANNED [facility] Comment on above: 1+ ANISOCYTOSIS Blood monocytes/100 leukocyt esOrdered By: ED PROVIDER on 04-13-2022 Monocytes/100 WBC (Bld) 7.1 % 0-10 [facility] Blood monocytes/100 leukocyt esOrdered By: Dr. Turner on 04-13-2022 Monocytes/100 WBC (Bld) 7.0 % 0-10 [facility] Blood platelet mean volumeOr dered By: ED PROVIDER on 04-13-2022 Platelet mean volume (Bld) [Entitic vol] 10.8 fL 6.2-12.0 [facility] Blood platelet mean volumeOr dered By: Dr. Turner on 04-13-2022 Platelet mean volume (Bld) [Entitic vol] 11.7 fL 6.2-12.0 [facility] Determination of erythrocyte mean corpuscular volume (MCV)Ordered By: ED PROVIDER on 04-13-2022 MCV (RBC) [Entitic vol] 94.8 fL 80-94 [facility] Determination of erythrocyte mean corpuscular volume (MCV)Ordered By: Dr. Turner on 04-13-2022 MCV (RBC) [Entitic vol] 97.2 fL 80-94 [facility] Hematocrit Auto (Bld) [Volum e fraction]Ordered By: ED PROVIDER on 04-13-2022 Hematocrit (Bld) [Volume fraction] 38.2 % 40-54 [facility] Hematocrit Auto (Bld) [Volum e fraction]Ordered By: Dr. Turner on 04-13-2022 Hematocrit (Bld) [Volume fraction] 42.3 % 40-54 [facility] INR in Blood by Coagulation assayOrdered By: Dr. Dunn on 04-13-2022 INR Coag (Bld) [Relative time] 1.9 {INR} [facility] Laboratory - Chemistry and C hemistry - challengeOrdered By: ED PROVIDER on 04-13-2022 CO2 [Moles/Vol] 25.0 mmol/L 21.0-32.0 [facility] Urea nitrogen/Creatinine [Mass ratio] 7.7 mg/mg 10- [facility] Laboratory - Chemistry and C hemistry - challengeOrdered By: Dr. Turner on 04-13-2022 Natriuretic peptide B (Bld) [Mass/Vol] 699.0 pg/mL 0-100 [facility] ALP [Catalytic activity/Vol] 83 U/L 45-117 [facility] ALT [Catalytic activity/Vol] 48 U/L 16-61 [facility] CO2 [Moles/Vol] 27.0 mmol/L 21.0-32.0 [facility] Globulin (S) [Mass/Vol] 4.0 g/dL 2.2-4.2 [facility] Urea nitrogen/Creatinine [Mass ratio] 7.3 mg/mg 10- [facility] Laboratory - CoagulationOrde red By: Dr. Dunn on 04-13-2022 PT Coag (PPP) [Time] 21.7 s 11.7-14.9 [facility] Laboratory - Hematology and Cell countsOrdered By: ED PROVIDER on 04-13-2022 Erythrocyte distribution width (RBC) [Entitic vol] 69.1 fL 35.1-43.9 [facility] Erythrocyte distribution width (RBC) [Ratio] 20.2 % 11.6-14.6 [facility] Immature granulocytes/100 WBC (Bld) 0.400 % 0.0-0.9 [facility] Comment on above: IG% - Immature Granu locytes (promyelocytes, myelocytes and metamyelocytes) > 1% indicates that a LEFT SHIFT is Present. MCH (RBC) [Entitic mass] 31.8 pg 27.0-32.0 [facility] Nucleated RBC/100 WBC (Bld) [Ratio] 1.8 % 0-5 [facility] Laboratory - Hematology and Cell countsOrdered By: Dr. Turner on 04-13-2022 Erythrocyte distribution width (RBC) [Entitic vol] 71.7 fL 35.1-43.9 [facility] Erythrocyte distribution width (RBC) [Ratio] 20.5 % 11.6-14.6 [facility] Immature granulocytes/100 WBC (Bld) 0.500 % 0.0-0.9 [facility] Comment on above: IG% - Immature Granu locytes (promyelocytes, myelocytes and metamyelocytes) > 1% indicates that a LEFT SHIFT is Present. MCH (RBC) [Entitic mass] 32.0 pg 27.0-32.0 [facility] Nucleated RBC/100 WBC (Bld) [Ratio] 1.1 % 0-5 [facility] MCHC Auto (RBC) [Mass/Vol]Or dered By: ED PROVIDER on 04-13-2022 MCHC (RBC) [Mass/Vol] 33.5 g/dL 32-36 [facility] MCHC Auto (RBC) [Mass/Vol]Or dered By: Dr. Turner on 04-13-2022 MCHC (RBC) [Mass/Vol] 32.9 g/dL 32-36 [facility] No Panel InformationOrdered By: ED PROVIDER on 04-13-2022 Estimated Creatinine Clearance Calc 44.21 ml/min [facility] Estimated GFR (MDRD) Amer 46 mL/min >60 [facility] Comment on above: GFR Calc Estimated GFR (MDRD) Non-Af Amer 38 mL/min >60 [facility] Comment on above: Non- GFR Calc No Panel InformationOrdered By: Dr. Turner on 04-13-2022 Estimated GFR (MDRD) [facility] Amer 46 mL/min >60 [facility] Comment on above: GFR Calc Estimated GFR (MDRD) Non-Af Amer 38 mL/min >60 [facility] Comment on above: Non- GFR Calc Troponin I High Sensitivity 118 pg/mL 3.0-78.0 [facility] Comment on above: Please Note: New [place] t Units and Gender Specific Reference Ranges. For more information see Policy Stat Procedure [place] High Sensitivity Troponin (TNIH) and attachments. Platelets bldOrdered By: ED PROVIDER on 04-13-2022 Platelets (Bld) [#/Vol] 197 10*3/uL 150-450 [facility] Platelets bldOrdered By: Dr. Turner on 04-13-2022 Platelets (Bld) [#/Vol] 222 10*3/uL 150-450 [facility] Serum or plasma albumin cory urement (mass/volume)Ordered By: Dr. Turner on 04-13-2022 Albumin [Mass/Vol] 3.4 g/dL 3.2-5.0 [facility] Serum or plasma albumin/glob ulin mass ratioOrdered By: Dr. Turner on 04-13-2022 Albumin/Globulin [Mass ratio] 0.8 {ratio} 0.9-2.4 [facility] Serum or plasma calcium cory urement (mass/volume)Ordered By: ED PROVIDER on 04-13-2022 Calcium [Mass/Vol] 9.0 mg/dL 8.5-10.1 [facility] Serum or plasma calcium cory urement (mass/volume)Ordered By: Dr. Turner on 04-13-2022 Calcium [Mass/Vol] 9.4 mg/dL 8.5-10.1 [facility] Serum or plasma creatinine m easurement (mass/volume)Ordered By: ED PROVIDER on 04-13-2022 Creatinine [Mass/Vol] 1.94 mg/dL 0.70-1.30 [facility] Comment on above: The validity of the calculated GFR & GFRAA in patients over 70 years has not been determined. Clinical correlation is essential. Serum or plasma creatinine m easurement (mass/volume)Ordered By: Dr. Turner on 04-13-2022 Creatinine [Mass/Vol] 1.93 mg/dL 0.70-1.30 [facility] Comment on above: The validity of the calculated GFR & GFRAA in patients over 70 years has not been determined. Clinical correlation is essential. Serum or plasma urea nitroge n measurement (mass/volume)Ordered By: ED PROVIDER on 04-13-2022 Urea nitrogen [Mass/Vol] 15 mg/dL 7- [facility] Serum or plasma urea nitroge n measurement (mass/volume)Ordered By: Dr. Turner on 04-13-2022 Urea nitrogen [Mass/Vol] 14 mg/dL 7- [facility] Thin prep Papanicolaou smear with manual screeningOrdered By: ED PROVIDER on 04-13-2022 Thin prep Papanicolaou smear with manual screening 7 5-15 [facility] Thin prep Papanicolaou smear with manual screeningOrdered By: Dr. Turner on 04-13-2022 Thin prep Papanicolaou smear with manual screening 41 U/L 15-37 [facility] Thin prep Papanicolaou smear with manual screening 8 5-15 [facility] CBC W Auto Differential pane l (Bld)on 04-09-2022 Basophils (Bld) [#/Vol] 10*3/uL Normal <0.11 [facility] Comment on above: Order Comment: Speci men Type: BLOOD SPECIMENOrdering Facility: [facility] Address: [address] [place] [address] Performed By: #### 5 7021-8 ####[facility] [id number] [place] [address] [place] Basophils/100 WBC (Bld) 0.3 % Normal [facility] Comment on above: Order Comment: Speci men Type: BLOOD SPECIMENOrdering Facility: [facility] Address: [address] [place] [address] Performed By: #### 5 7021-8 ####[facility] [id number] [place] [address] [place] Differential cell count method Nom (Bld) Auto Normal [facility] Comment on above: Order Comment: Speci men Type: BLOOD SPECIMENOrdering Facility: [facility] Address: [address] [place] [address] Performed By: #### 5 7021-8 ####[facility] [id number] [place] [address] [place] Eosinophils (Bld) [#/Vol] 0.04 10*3/uL Normal <0.46 [facility] Comment on above: Order Comment: Speci men Type: BLOOD SPECIMENOrdering Facility: [facility] Address: [address] [place] [address] Performed By: #### 5 7021-8 ####[facility] [id number] [place] [address] [place] Eosinophils/100 WBC (Bld) 0.7 % Normal [facility] Comment on above: Order Comment: Speci men Type: BLOOD SPECIMENOrdering Facility: [facility] Address: [address] [place] [address] Performed By: #### 5 7021-8 ####[facility] [id number] [address] [place] Erythrocyte distribution width (RBC) [Ratio] 19.2 % High 11.5-15.0 [facility] Comment on above: Order Comment: Speci men Type: BLOOD SPECIMENOrdering Facility: [facility] Address: [address] [place] [address] Performed By: #### 5 7021-8 ####[facility] [id number] [place] [address] [place] Hematocrit (Bld) [Volume fraction] 42.1 % Normal 39.0-51.0 [facility] Comment on above: Order Comment: Speci men Type: BLOOD SPECIMENOrdering Facility: [facility] Address: [address] [place] [address] Performed By: #### 5 7021-8 ####[facility] [id number] [place] [address] [place] Hemoglobin (Bld) [Mass/Vol] 14.5 g/dL Normal 13.0-17.0 [facility] Comment on above: Order Comment: Speci men Type: BLOOD SPECIMENOrdering Facility: [facility] Address: [address] [place] [address] Performed By: #### 5 7021-8 ####[facility] [id number] [place] [address] [place] Immature granulocytes (Bld) [#/Vol] 0.03 10*3/uL Normal <0.10 [facility] Comment on above: Order Comment: Speci men Type: BLOOD SPECIMENOrdering Facility: [facility] Address: [address] [place] [address] Performed By: #### 5 7021-8 ####[facility] [id number] [place] [address] [place] Immature granulocytes/100 WBC (Bld) 0.5 % Normal [facility] Comment on above: Order Comment: Speci men Type: BLOOD SPECIMENOrdering Facility: [facility] Address: [address] [place] [address] Performed By: #### 5 7021-8 ####[facility] [id number] [place] [address] [place] Lymphocytes (Bld) [#/Vol] 1.09 10*3/uL Normal 1.00-4.00 [facility] Comment on above: Order Comment: Speci men Type: BLOOD SPECIMENOrdering Facility: [facility] Address: [address] [place] [address] Performed By: #### 5 7021-8 ####[facility] [id number] [address] [place] Lymphocytes/100 WBC (Bld) 18.7 % Normal [facility] Comment on above: Order Comment: Speci men Type: BLOOD SPECIMENOrdering Facility: [facility] Address: [address] [place] [address] Performed By: #### 5 7021-8 ####[facility] [id number] [place] [address] [place] MCH (RBC) [Entitic mass] 32.2 pg Normal 26.0-34.0 [facility] Comment on above: Order Comment: Speci men Type: BLOOD SPECIMENOrdering Facility: [facility] Address: [address] [place] [address] Performed By: #### 5 7021-8 ####[facility] [id number] [address] [place] MCHC (RBC) [Mass/Vol] 34.4 g/dL Normal 30.5-36.0 [facility] Comment on above: Order Comment: Speci men Type: BLOOD SPECIMENOrdering Facility: [facility] Address: [address] Performed By: #### 5 7021-8 ####[facility] [id number] [place] [address] [place] MCV (RBC) [Entitic vol] 93.3 fL Normal 80.0-100.0 [facility] Comment on above: Order Comment: Speci men Type: BLOOD SPECIMENOrdering Facility: [facility] Address: [address] [place], [place] [id number] Performed By: #### 5 7021-8 ####[facility] [id number] [place] [address] [place] Monocytes (Bld) [#/Vol] 0.45 10*3/uL Normal <0.87 [facility] Comment on above: Order Comment: Speci men Type: BLOOD SPECIMENOrdering Facility: [facility] Address: [address] [place] [address] Performed By: #### 5 7021-8 ####[facility] [id number] [place] [address] [place] Monocytes/100 WBC (Bld) 7.7 % Normal [facility] Comment on above: Order Comment: Speci men Type: BLOOD SPECIMENOrdering Facility: [facility] Address: [address] [place] [address] Performed By: #### 5 7021-8 ####[facility] [id number] [place] [address] [place] Neutrophils (Bld) [#/Vol] 4.20 10*3/uL Normal 1.45-7.50 [facility] Comment on above: Order Comment: Speci men Type: BLOOD SPECIMENOrdering Facility: [facility] Address: [address] [place] [address] Performed By: #### 5 7021-8 ####[facility] [id number] [place] [address] [place] Neutrophils/100 WBC (Bld) 72.1 % Normal [facility] Comment on above: Order Comment: Speci men Type: BLOOD SPECIMENOrdering Facility: [facility] Address: [address] [place] [address] Performed By: #### 5 7021-8 ####[facility] [id number] [facility] [address] [place] [address] [place] Platelet mean volume (Bld) [Entitic vol] 10.4 fL Normal 9.0-12.7 [facility] Comment on above: Order Comment: Speci men Type: BLOOD SPECIMENOrdering Facility: [facility] Address: [address] [place] [address] Performed By: #### 5 7021-8 ####[facility] [id number] [place] [address] [place] Platelets (Bld) [#/Vol] 219 10*3/uL Normal 150-400 [facility] Comment on above: Order Comment: Speci men Type: BLOOD SPECIMENOrdering Facility: [facility] Address: [address] [place], [place] [address] Performed By: #### 5 7021-8 ####[facility] [id number] [place] [address] [place] RBC (Bld) [#/Vol] 4.51 10*6/uL Normal 4.20-6.00 [facility] Comment on above: Order Comment: Speci men Type: BLOOD SPECIMENOrdering Facility: [facility] Address: [address] [place], [place] [id number] Performed By: #### 5 7021-8 ####[facility] LABCLIA [id number] [facility] [address] [place] [address] [place] WBC (Bld) [#/Vol] 5.83 10*3/uL Normal 3.70-11.00 [facility] Comment on above: Order Comment: Speci men Type: BLOOD SPECIMENOrdering Facility: [facility] Address: [address] [place] [address], [place] [address] Performed By: #### 5 7021-8 ####[facility] ONC LABCLIA [id number] [address] STATES OF [place] CNOVSPon 04-09-2022 CNOVSP Visit (SP) Office ([facility]) ----- YEFRI YANEZ ([id number]) 1965 M [facility] Date Time Provider Department 04/09/22 11:00 AM HAYLEE WILBURN [facility] During your visit today, we recorded the following information about you: Temperature Pulse Respiration Blood pressure 98.1 degrees 116/minute 16/minute 163/86 Weight 124.3 kg Haylee Wilburn MD 04/09/2022 4:21 PM Signed [facility] Progress Note SERVICE DATE: April 09, 2022 [...] started treatment with cabo + nivo on [facility] 1820 Trial on 08/08/2021 at [facility]. He has baseline HTN and developed worsening HTN after starting treatment. His cabo was held on 08/18/2021, resumed on 09/11/2021. The Nivo was held on 09/11/21 due to pneumonitis, and prednisone 60 mg daily was started and tapered off within about one month. Due to insurance change, he was taken off the trial and referred to [facility]. All treatments were supposed to be [...] radical nephrectomy by Dr. Aravind Hernandez at [facility] in [facility] on 02/06/2022. PATHOLOGY: -Renal cell carcinoma, clear-cell type, 5.3 x 3.0 x 2.7 cm, ISUP nuclear grade 3. -Carcinoma invades renal vein and lurdes-nephritic adipose tissue. -Margins of resection are negative for carcinoma. -Lymphovascular invasion not identified. -Regional lymph nodes not submitted. -[id number]. 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 He denies pain in the [...] ferrous sulf (more content not included)... Normal [facility] Comprehensive metabolic 2000 panelon 04-09-2022 Albumin [Mass/Vol] 3.5 g/dL Normal 3.2-5.0 [facility] Comment on above: Order Comment: Speci men Type: BLOOD SPECIMENOrdering Facility: [facility] Address: [place] [address] Performed By: #### 2 4323-8, 3016-3 ####[facility] LABORATORYCLIA [id number] [place] [address] [place] ALP [Catalytic activity/Vol] 86 U/L Normal 45-117 [facility] Comment on above: Order Comment: Speci men Type: BLOOD SPECIMENOrdering Facility: [facility] Address: [address] [address] Performed By: #### 2 4323-8, 6-3 ####[facility] LABORATORYCLIA [id number] [place] [address] [place] ALT [Catalytic activity/Vol] 45 U/L Normal 13-61 [facility] Comment on above: Order Comment: Speci men Type: BLOOD SPECIMENOrdering Facility: [facility] Address: [address] [address] Result Comment: Resu lts may be falsely depressed after the administration of Sulfasalazine and/or Sulfapyridine. Performed By: #### 2 4323-8, 3015-3 ####[facility] LABORATORYCLIA [id number] [address] STATES OF [facility] Anion gap [Moles/Vol] 6 mmol/L Normal 5-16 [facility] Comment on above: Order Comment: Speci men Type: BLOOD SPECIMENOrdering Facility: [facility] Address: [address] [place] [address] Performed By: #### 2 4323-8, 3015-3 ####[facility] LABORATORYCLIA [id number] [address] [place] AST [Catalytic activity/Vol] 40 U/L High 8-34 [facility] Comment on above: Order Comment: Speci men Type: BLOOD SPECIMENOrdering Facility: [facility] Address: [address] [address] Result Comment: Resu lts may be falsely depressed after the administration of Sulfasalazine and/or Sulfapyridine. Performed By: #### 2 4323-8, 6-3 ####[facility] LABORATORYCLIA [id number] [place] [id number] [place] Bilirubin [Mass/Vol] 0.5 mg/dL Normal 0.2-1.0 [facility] Comment on above: Order Comment: Speci men Type: BLOOD SPECIMENOrdering Facility: [facility] Address: [address] [address] Performed By: #### 2 4323-8, 6-3 ####[facility] LABORATORYCLIA [id number] [place] [address] [place] Calcium [Mass/Vol] 9.5 mg/dL Normal 8.5-10.5 [facility] Comment on above: Order Comment: Speci men Type: BLOOD SPECIMENOrdering Facility: [facility] Address: [address] [place] [address] Performed By: #### 2 4323-8, 3015-3 ####[facility] LABORATORYCLIA [id number] [place] [address] [place] Chloride [Moles/Vol] 106 mmol/L Normal 98-107 [facility] Comment on above: Order Comment: Speci men Type: BLOOD SPECIMENOrdering Facility: [facility] Address: [address] [place] [address] Performed By: #### 2 4323-8, 3015-3 ####[facility] LABORATORYCLIA [id number] [place] [address] [place] CO2 [Moles/Vol] 30 mmol/L Normal 21-32 [facility] Comment on above: Order Comment: Speci men Type: BLOOD SPECIMENOrdering Facility: [facility] Address: [address] [place] [address] Performed By: #### 2 4323-8, 3015-3 ####[facility] LABORATORYCLIA [id number] [place] [address] [place] Creatinine [Mass/Vol] 1.57 mg/dL High 0.50-1.40 [facility] Comment on above: Order Comment: Speci men Type: BLOOD SPECIMENOrdering Facility: [facility] Address: [address] [place] [address] Result Comment: Hyun ents receiving either N-Acetylcysteine (NAC) or Metamizole prior to venipuncture, may have falsely depressed results. Performed By: #### 2 4323-8, 3015-3 ####[facility] LABORATORYCLIA [id number] [address] STATES [place] ESTIMATED GLOMERULAR FILTRATION RATE 51 mL/min/1.73m??? Low >=60 [facility] Comment on above: Order Comment: Aaliyah paige Type: BLOOD SPECIMENOrdering Facility: [facility] Address: [address] [address] Result Comment: Laurita mated Glomerular Filtration Rate [...] By: #### 2 4323-8, 3015-3 ####[facility] LABORATORYCLIA [id number] [address] [place] Glucose [Mass/Vol] 132 mg/dL High 70-100 [facility] Comment on above: Order Comment: Aaliyah gibson Type: BLOOD SPECIMENOrdering Facility: [facility] Address: [address] [place] [address] Result Comment: The [place] Diabetes Association (ADA) provides guidance for cutoff [...] Standards of Medical Care in Diabetes 2016, [place] [employer]. Diabetes Care. 2016.39(Suppl 1). Results may be falsely elevated after the administration of Sulfapyridine. Results may be falsely depressed after the administration of Sulfasalazine. Performed By: #### 2 43238, 3016-3 ####[facility] LABORATORYCLIA [id number] [place] [address] [place] Potassium [Moles/Vol] 3.7 mmol/L Normal 3.5-5.1 [facility] Comment on above: Order Comment: Speci men Type: BLOOD SPECIMENOrdering Facility: [facility] Address: [address] [place] [address] Performed By: #### 2 4323-8, 3 ####[facility] LABORATORYCLIA [id number] [place] [address] [place] Protein [Mass/Vol] 6.7 g/dL Normal 6.0-8.5 [facility] Comment on above: Order Comment: Speci men Type: BLOOD SPECIMENOrdering Facility: [facility] Address: [address] [place] [address] Performed By: #### 2 4323-8, 3015-05 ####[facility] LABORATORYCLIA [id number] [place] [address] [place] Sodium [Moles/Vol] 142 mmol/L Normal 136-145 [facility] Comment on above: Order Comment: Speci men Type: BLOOD SPECIMENOrdering Facility: [facility] Address: [address] [place] [address] Performed By: #### 2 4323-8, 3 ####[facility] LABORATORYCLIA [id number] [place] [address] [place] Urea nitrogen [Mass/Vol] 17 mg/dL Normal 7-26 [facility] Comment on above: Order Comment: Speci men Type: BLOOD SPECIMENOrdering Facility: [facility] Address: [address] [place] [address] Performed By: #### 2 4323-8, 3 ####[facility] LABORATORYCLIA [id number] [place] [address] [place] TSH SerPl-aCncon 04-09-2022 TSH Qn 2.848 m[IU]/L Normal 0.358-3.74 0 [facility] Comment on above: Order Comment: Speci men Type: BLOOD SPECIMENOrdering Facility: [facility] Address: [address], [place] [address] Result Comment: 3rd generation ultra sensitive TSH. Performed By: #### 2 4323-8, 3016-3 ####[facility] LABORATORYCLIA [id number] [place] [address] [place] Office Visit (Urology)on [...] between urology, medical oncology, radiation oncology at [facility] was local therapy to metastatic sites and cytoreductive nephrectomy. 12/08/2021-echo with EF 35%, LV and RV enlargement and hypokinesis 12/26/2021-patient completed radiation to chest wall and L4 lesion Patient has remained on cabo Patient was scheduled for nephrectomy with Dr. Adriana Hodge, due to insurance issues patient could not be operated on at [facility], [place] [facility] [place]. 01/19/2022-patient scheduled for laparoscopic nephrectomy 02/0301/20/2022-patient presented to [facility] with shortness of breath 01/27/2022-patient presented to [facility] with persistence of subjective dyspnea, expiratory wheezing 01/29/2022-patient represented to [facility] with chest tightness and shortness of [...] also follows [facility], sending records -Follow-up CT scans per Dr. Wilburn -Labs with Dr. Wilburn as well, renal function was good on discharge from hospital -Follow-up with me in 3 months Chief Complaint Metastatic kidney cancer History of Present Dimtvsr07-dign-mus male referred to me for cytoreductive nephrectomy [...] between urology, medical oncology, radiation oncology at [facility] was local therapy to metastatic sites and cytoreductive nephrectomy. 12/08/2021-echo with EF 35%, LV and RV enlargement and hypokinesis 12/26/2021-patient completed radiation to chest wall and L4 lesion Patient has remained on cabo Patient was scheduled for nephrectomy with Dr. Adriana Hodge, due to insurance issues patient could not be operated on at [facility], [place] [facility]. 01/19/2022-patient scheduled for laparoscopic nephrectomy 02/0301/20/2022-patient presented to [facility] with shortness of breath 01/27/2022-patient presented to [facility] with persistence of subjective dyspnea, expiratory wheezing 01/29/2022-patient represented to [facility] with chest tightness and shortness of breath. Diagnosed with CHF and pneumonia. He was prescribed cefdinir 300 mg p.o. twice daily x7 days, Lasix 40 mg daily p.o. for 14 days. 02/02/2022-canceled nephrectomy for 02/03. Called patient to discuss, subjectively feels back to baseline follow (more content not included)... Normal [facility] CNPNon [facility] ----- YEFRI YANEZ ([id number]) 1965 M [facility] Date Time Provider Department 04/02/22 AMERICA SCHWARTZ [facility] During your visit today, we [...] by this patient by: SPOUSE Safia Carr, [facility] Problem List As Of Date 04/02/2022 Noted [...] Encounter Status:Closed by AMERICA SCHWARTZ on 04/02/22 [facility] CNPN Telephone ([facility]) ----- YEFRI YANEZ ([id number]) 1965 M [facility] Date Time Provider Department 04/02/22 HAYLEE WILBURN [facility] During your visit today, we [...] by this patient by: SPOUSE Safia Carr, [facility] Problem List As Of Date 04/02/2022 Noted [...] Encounter Status:Closed by DONAVON EASTMAN on 04/02/22 [facility] CT ABD/PEL W IVCONon 023 CT ABD/PEL W IVCON * * *Final Report* * * DATE OF EXAM: Mar 26 2022 10:14AM [facility] 0530 - CT ABD/PEL W IVCON / PROCEDURE REASON: Renal cell carcinoma of right kidney (HCC) * * * * Physician Interpretation * * * * EXAMINATION: CT ABDOMEN AND PELVIS WITH IV CONTRAST CLINICAL HISTORY: Renal cell carcinoma of the right kidney. Status post interval robotic right radical nephrectomy at [facility]. TECHNIQUE: CT of the abdomen and pelvis [...] chest CT performed will be reported separately. Fermentologist (topogram) images: No additional findings. IMPRESSION: Interval right nephrectomy with change in the nephrectomy bed favored to be postoperative. No definite recurrence. Decrease in size of lytic metastasis centered in the posterior elements of L4. No new abdominopelvic metastasis. Stable aortic and bilateral common iliac artery aneurysms. Credit Card Interviewer: PSCB Transcribe Date/Time: Mar 28 2022 9:47A Dictated by : JOSE MARIA MADSEN MD This examination was interpreted and the report reviewed and electronically signed by: JOSE MARIA MADSEN MD on Mar 28 2022 9:57AM EST [id number] [facility] CT CHEST W IVCONon 3 CT CHEST W IVCON * * *Final Report* * * DATE OF EXAM: Mar 26 2022 10:14AM [facility] 0539 - CT CHEST W IVCON / [...] No abnormality in the imaged upper abdomen. Fermentologist (topogram) images: No additional findings. IMPRESSION: New small patchy infiltrates in the lateral right middle and lower lobes. Interval decrease in size right sixth rib expansile metastasis. Stable 1.3 cm right paratracheal lymph node. No new lymphadenopathy. Atherosclerotic calcification of the aorta and coronary arteries. Ectasia of the ascending thoracic aorta. _ Credit Card Interviewer: PSCB Transcribe Date/Time: Mar 29 2022 12:00P Dictated by : YEFRI MORRIS MD This examination was interpreted and the report reviewed and electronically signed by: YEFRI MORRIS MD on Mar 29 2022 10:12PM EST [id number] [facility] Dougie 03-25-2022 [facility] ----- YEFRI YANEZ ([id number]) 1965 M [facility] Date Time Provider Department 03/25/22 HAYLEE WILBURN [facility] During your visit today, we recorded the following information about you: Tania Parekh RN 03/25/2022 9:12 AM Signed Patient called stating his insurance is not approved for our office and that Dr. Wilburn needs to place a Referral for [facility]. 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] Prescriptions as of 03/25/2022 [...] by this patient by: SPOUSE Safia Carr, [facility] Problem List As Of Date 03/25/2022 Noted [...] Encounter Status:Closed by TANIA PAREKH on 03/25/22 [facility] CNPN Telephone ([facility]) ----- YEFRI YANEZ ([id number]) 1965 M [facility] Date Time Provider Department 03/25/22 HAYLEE WILBURN [facility] During your visit today, we recorded the following information about you: Venita Pollock 03/25/2022 9:23 AM Signed Per chat from RN TLP, yesica pt visit and possible tx from today to 04/02. Pt keeps calling to say that he is not apporved to be seen here and his insurance told him to go to [facility]. I have discussed several times with pt [...] by this patient by: SPOUSE Safia Carr, [facility] Problem List As Of Date 03/25/2022 Noted [...] Encounter Status:Closed by VENITA POLLOCK on 03/25/22 [facility] NM BONE WHOLE BODYon 023 NM [...] right anterior sixth rib and L4 vertebra. Credit Card Interviewer: PSCB Transcribe Date/Time: Mar 23 2022 12:12P Dictated by : NASREEN QUINTANA MD This examination was interpreted and the report reviewed and electronically signed by: NASREEN QUINTANA MD on Mar 23 2022 12:18PM EST [id number] [facility] 03-12-20[facility] CNPN Telephone ([facility]) ----- YEFRI YANEZ ([id number]) 1965 M [facility] Date Time Provider Department 03/12/22 AMERICA SCHWARTZ [facility] During your visit today, we recorded the following information about you: Octavio Schwartz RN 03/12/2022 11:04 AM Signed LMOM with the appointment dates, times and location of upcoming bone scan and CT scans. Bone scan 03/23/22 at 830 am here at the [facility]. CT scans at [facility] 03/24/22 at 1pm. America Schwartz [...] by this patient by: SPOUSE Safia Carr, [facility] Problem List As Of Date 03/12/2022 Noted [...] Encounter Status:Closed by AMERICA SCHWARTZ on 03/16/22 [facility] CNOVSPon 03-11-2022 CNOVSP Visit (SP) Office ([facility]) ----- YEFRI YANEZ ([id number]) 1965 M [facility] Date Time Provider Department 03/11/22 1:00 PM HAYLEE WILBURN [facility] During your visit today, we recorded the following information about you: Pulse Respiration Blood pressure Weight 78/minute 16/minute 134/84 118.8 kg Haylee Wilburn MD 03/11/2022 4:16 PM Signed [facility] Progress Note SERVICE DATE: March 11, 2022 [...] started treatment with cabo + nivo on [facility] 1820 Trial on 08/08/2021 at [facility]. He has baseline HTN and developed worsening HTN after starting treatment. His cabo was held on 08/18/2021, resumed on 09/11/2021. The Nivo was held on 09/11/21 due to pneumonitis, and prednisone 60 mg daily was started and tapered off within about one month. Due to insurance change, he was taken off the trial and referred to [facility] to resume the treatment. He was scheduled to have nephrectomy on 11/04/21, but delayed due to his back pain. He underwent palliative XRT to L3-L5 (2,000 cGy in 5 fx), completed 12/26/21). He underwent da Farzad assisted robotic right radical nephrectomy at [facility] in [facility]. I do not have the official pathology report yet. We have made multiple requests to [facility] for the surgical pathology, to no avail. [...] mg tablet (more content not included)... Normal [facility] ECHO LIMITEDon 02-26-2022 CONCLUSIONS: - Exam [...] * Final * * * [facility] Echocardiography Report: [facility] Date of service: 02/26/2022 8:14:13 AM Ordering physician: SAYRA TELLO Indication: Cardiomyopathy Technologist: Sybil Craft [facility] Interpreting physician: Sayra Tello MD PATIENT: Name: [...] PERICARDIUM The pericardium is normal. [facility] ECHO LIMITED Echocardiography Rep ort: [facility] Date of service: 02/26/2022 8:14:13 AM [...] * * * Final * * * [employer] [facility] : [id number] [facility] Dougie 02-19-2022 [facility] Telephone ([facility]) ----- YEFRI YANEZ ([id number]) 1965 M [facility] Date Time Provider Department 02/19/22 SAYRA [...] [I50.9] Order(s):BASIC METABOLIC PNL [SQBMP] Order #: [id number] FUTURE Prescriptions as of 02/22/2022 - torsemide [...] by this patient by: SPOUSE Safia Carr, [facility] Problem List As Of Date 02/19/2022 Noted [...] Encounter Status:Closed by SAYRA TELLO on 02/22/22 [facility] 02-18-2022 [facility] Telephone ([facility]) ----- YEFRI YANEZ ([id number]) 1965 [facility] Date Time Provider Department 02/18/22 SAYRA [...] by this patient by: SPOUSE Safia Carr, [facility] Problem List As Of Date 02/18/2022 Noted [...] Status:Closed by RACHEL TREVINO on 02/18/22 Normal [facility] CBC W Auto Differential pane l (Bld)on 02-17-2022 Basophils (Bld) [#/Vol] 10*3/uL Normal <0.11 M [facility] Comment on above: Order Comment: Speci men Type: BLOOD SPECIMENOrdering Facility: [facility] Address: [address] [place] [address] Performed By: #### 5 7021-8 ####[facility] ONC LABCLIA [id number] [address] Basophils/100 WBC (Bld) 0.2 % Normal [facility] Comment on above: Order Comment: Speci men Type: BLOOD SPECIMENOrdering Facility: [facility] Address: [address] [place] [address] Performed By: #### 5 7021-8 ####[facility] LABCLIA [id number] [facility] [address] [place] [address] OF [place] Differential cell count method Nom (Bld) Auto Normal [facility] Comment on above: Order Comment: Speci men Type: BLOOD SPECIMENOrdering Facility: [facility] Address: [address] [place] [address] Performed By: #### 5 7021-8 ####[facility] LABCLIA [id number] [address] STATES [place] Eosinophils (Bld) [#/Vol] 0.04 10*3/uL Normal <0.46 [facility] Comment on above: Order Comment: Speci men Type: BLOOD SPECIMENOrdering Facility: [facility] Address: [address] [place] [address] Performed By: #### 5 7021-8 ####[facility] LABCLIA [id number] [address] OF [place] Eosinophils/100 WBC (Bld) 1.0 % Normal [facility] Comment on above: Order Comment: Speci men Type: BLOOD SPECIMENOrdering Facility: [facility] Address: [address] [place] [address] Performed By: #### 5 7021-8 ####[facility] LABCLIA [id number] [address] [place] Erythrocyte distribution width (RBC) [Ratio] 17.0 % High 11.5-15.0 [facility] Comment on above: Order Comment: Speci men Type: BLOOD SPECIMENOrdering Facility: [facility] Address: [address] [place] [address] Performed By: #### 5 7021-8 ####[facility] LABCLIA [id number] [place] [address] [place] Hematocrit (Bld) [Volume fraction] 47.4 % Normal 39.0-51.0 [facility] Comment on above: Order Comment: Speci men Type: BLOOD SPECIMENOrdering Facility: [facility] Address: [address] [place] [address] Performed By: #### 5 7021-8 ####[facility] LABCLIA [id number] [place] [address] [place] Hemoglobin (Bld) [Mass/Vol] 15.7 g/dL Normal 13.0-17.0 [facility] Comment on above: Order Comment: Speci men Type: BLOOD SPECIMENOrdering Facility: [facility] Address: [address] [place] [address] Performed By: #### 5 7021-8 ####[facility] LABCLIA [id number] [place] [address] [place] Immature granulocytes (Bld) [#/Vol] 10*3/uL Normal <0.10 [facility] [facility] Comment on above: Order Comment: Speci men Type: BLOOD SPECIMENOrdering Facility: [facility] Address: [address] [place] [address] Performed By: #### 5 7021-8 ####[facility] LABCLIA [id number] [place] [address] [place] Immature granulocytes/100 WBC (Bld) 0.5 % Normal [facility] Comment on above: Order Comment: Speci men Type: BLOOD SPECIMENOrdering Facility: [facility] Address: [address] [place] [address] Performed By: #### 5 7021-8 ####[facility] LABCLIA [id number] [place] [address] [place] Lymphocytes (Bld) [#/Vol] 0.75 10*3/uL Low 1.00-4.00 [facility] Comment on above: Order Comment: Speci men Type: BLOOD SPECIMENOrdering Facility: [facility] Address: [address] [place] [address] Performed By: #### 5 7021-8 ####[facility] LABCLIA [id number] [address] [facility] Lymphocytes/100 WBC (Bld) 18.2 % Normal [facility] Comment on above: Order Comment: Speci men Type: BLOOD SPECIMENOrdering Facility: [facility] Address: [address] [place] [address] Performed By: #### 5 7021-8 ####[facility] LABCLIA [id number] [place] [address] [place] MCH (RBC) [Entitic mass] 30.7 pg Normal 26.0-34.0 [facility] Comment on above: Order Comment: Speci men Type: BLOOD SPECIMENOrdering Facility: [facility] Address: [address] [place] [address] Performed By: #### 5 7021-8 ####[facility] LABCLIA [id number] [place] [address] [place] MCHC (RBC) [Mass/Vol] 33.1 g/dL Normal 30.5-36.0 [facility] Comment on above: Order Comment: Speci men Type: BLOOD SPECIMENOrdering Facility: [facility] Address: [address] [place], [place] [id number] Performed By: #### 5 7021-8 ####[facility] LABCLIA [id number] [place] [address] [place] MCV (RBC) [Entitic vol] 92.8 fL Normal 80.0-100.0 M [facility] Comment on above: Order Comment: Speci men Type: BLOOD SPECIMENOrdering Facility: [facility] Address: [address] [place] [address] Performed By: #### 5 7021-8 ####[facility] LABCLIA [id number] [place] [address] [place] Monocytes (Bld) [#/Vol] 0.30 10*3/uL Normal <0.87 [facility] Comment on above: Order Comment: Speci men Type: BLOOD SPECIMENOrdering Facility: [facility] Address: [address] [place] [address] Performed By: #### 5 7021-8 ####[facility] LABCLIA [id number] [place] [address] [place] Monocytes/100 WBC (Bld) 7.3 % Normal [facility] Comment on above: Order Comment: Speci men Type: BLOOD SPECIMENOrdering Facility: [facility] Address: [address] [place] [address] Performed By: #### 5 7021-8 ####[facility] LABCLIA [id number] [place] [address] [place] Neutrophils (Bld) [#/Vol] 3.00 10*3/uL Normal 1.45-7.50 [facility] Comment on above: Order Comment: Speci men Type: BLOOD SPECIMENOrdering Facility: [facility] Address: [address] [place] [address] Performed By: #### 5 7021-8 ####[facility] LABCLIA [id number] [place] [address] [place] Neutrophils/100 WBC (Bld) 72.8 % Normal [facility] Comment on above: Order Comment: Speci men Type: BLOOD SPECIMENOrdering Facility: [facility] Address: [address] [place] [address] Performed By: #### 5 7021-8 ####[facility] LABCLIA [id number] [place] [address] [place] Platelet mean volume (Bld) [Entitic vol] 10.0 fL Normal 9.0-12.7 [facility] Comment on above: Order Comment: Speci men Type: BLOOD SPECIMENOrdering Facility: [facility] Address: [address] [address] Performed By: #### 5 7021-8 ####[facility] LABCLIA [id number] [address] OF [place] Platelets (Bld) [#/Vol] 359 10*3/uL Normal 150-400 [facility] Comment on above: Order Comment: Speci men Type: BLOOD SPECIMENOrdering Facility: [facility] Address: [address] [place] [address] Performed By: #### 5 7021-8 ####[facility] LABCLIA [id number] [place] [address] [place] RBC (Bld) [#/Vol] 5.11 10*6/uL Normal 4.20-6.00 [facility] Comment on above: Order Comment: Speci men Type: BLOOD SPECIMENOrdering Facility: [facility] Address: [address] [place] [address] Performed By: #### 5 7021-8 ####[facility] LABCLIA [id number] [place] [address] [place] WBC (Bld) [#/Vol] 4.12 10*3/uL Normal 3.70-11.00 [facility] Comment on above: Order Comment: Speci men Type: BLOOD SPECIMENOrdering Facility: [facility] Address: [address] [place] [address] Performed By: #### 5 7021-8 ####[facility] LABCLIA [id number] [place] [address] [place] Basophils (Bld) [#/Vol] <0.11 k/uL [facility] Basophils/100 WBC (Bld) 0.2 % [facility] Differential cell count method Nom (Bld) Auto [facility] Eosinophils (Bld) [#/Vol] 0.04 10*3/uL <0.46 k/uL [facility] Eosinophils/100 WBC (Bld) 1.0 % [facility] Erythrocyte distribution width (RBC) [Ratio] 17.0 % High 11.5 - 15.0 % [facility] Hematocrit (Bld) [Volume fraction] 47.4 % 39.0 - 51.0 % [facility] Hemoglobin (Bld) [Mass/Vol] 15.7 g/dL 13.0 - 17.0 g/dL [facility] Immature granulocytes (Bld) [#/Vol] <0.10 k/uL [facility] Immature granulocytes/100 WBC (Bld) 0.5 % [facility] Lymphocytes (Bld) [#/Vol] 0.75 10*3/uL Low 1.00 - 4.00 k/uL [facility] Lymphocytes/100 WBC (Bld) 18.2 % [facility] MCH (RBC) [Entitic mass] 30.7 pg 26.0 - 34.0 pg [facility] MCHC (RBC) [Mass/Vol] 33.1 g/dL 30.5 - 36.0 g/dL [facility] MCV (RBC) [Entitic vol] 92.8 fL 80.0 - 100.0 fL [facility] Monocytes (Bld) [#/Vol] 0.30 10*3/uL <0.87 k/uL [facility] Monocytes/100 WBC (Bld) 7.3 % [facility] Neutrophils (Bld) [#/Vol] 3.00 10*3/uL 1.45 - 7.50 k/uL [facility] Neutrophils/100 WBC (Bld) 72.8 % [facility] Platelet mean volume (Bld) [Entitic vol] 10.0 fL 9.0 - 12.7 fL [facility] Platelets (Bld) [#/Vol] 359 10*3/uL 150 - 400 k/uL [facility] RBC (Bld) [#/Vol] 5.11 10*6/uL 4.20 - 6.00 m/uL [facility] WBC (Bld) [#/Vol] 4.12 10*3/uL 3.70 - 11.00 k/uL [facility] CNOVSPon 02-17-2022 CNOVSP Visit (SP) Office ([facility]) ----- YEFRI YANEZ ([id number]) 1965 M [facility] Date Time Provider Department 02/17/22 11:30 AM HAYLEE WILBURN [facility] During your visit today, we recorded the following information about you: Pulse Respiration Blood pressure Weight 72/minute 16/minute 132/74 114.8 kg Haylee Wilburn MD 02/17/2022 5:25 PM Signed [facility] Progress Note SERVICE DATE: February 17, 2022 [...] started treatment with cabo + nivo on [facility] 1820 Trial on 08/08/2021 at [facility]. He has baseline HTN and developed worsening HTN after starting treatment. His cabo was held on 08/18/2021, resumed on 09/11/2021. The Nivo was held on 09/11/21 due to pneumonitis, and prednisone 60 mg daily was started and tapered off within about one month. Due to insurance change, he was taken off the trial and referred to [facility] to resume the treatment. He was scheduled to have nephrectomy on 11/04/21, but delayed due to his back pain and palliative XRT to L3-L5 (2,000 cGy in 5 fx, completed 12/26/21). His back pain has resolved. He underwent da Farzad assisted robotic right radical nephrectomy at [facility] in [facility]. I do not [...] and diarrhe (more content not included)... Normal [facility] Comprehensive metabolic 2000 panelon 02-17-2022 Albumin [Mass/Vol] 3.5 g/dL Normal 3.2-5.0 [facility] Comment on above: Order Comment: Speci men Type: BLOOD SPECIMENOrdering Facility: [facility] Address: [address] [place] [address] Performed By: #### 2 4323-8 ####[facility] LABORATORYCLIA [id number] [place] [address] [place] ALP [Catalytic activity/Vol] 107 U/L Normal 45-117 [facility] Comment on above: Order Comment: Speci men Type: BLOOD SPECIMENOrdering Facility: [facility] Address: [address] [address] Performed By: #### 2 4323-8 ####[facility] LABORATORYCLIA [id number] [place] [address] [place] ALT [Catalytic activity/Vol] 102 U/L High 13-61 [facility] Comment on above: Order Comment: Speci men Type: BLOOD SPECIMENOrdering Facility: [facility] Address: [address] [address] Result Comment: Resu lts may be falsely depressed after the administration of Sulfasalazine and/or Sulfapyridine. Performed By: #### 2 4323-8 ####[facility] LABORATORYCLIA [id number] [place] [address] [place] Anion gap [Moles/Vol] 9 mmol/L Normal 5-16 [facility] Comment on above: Order Comment: Speci men Type: BLOOD SPECIMENOrdering Facility: [facility] Address: [address] [address] Performed By: #### 2 4323-8 ####[facility] LABORATORYCLIA [id number] [place] [address] [place] AST [Catalytic activity/Vol] 62 U/L High 8-34 [facility] Comment on above: Order Comment: Speci men Type: BLOOD SPECIMENOrdering Facility: [facility] Address: [address] [address] Result Comment: Resu lts may be falsely depressed after the administration of Sulfasalazine and/or Sulfapyridine. Performed By: #### 2 4323-8 ####[facility] LABORATORYCLIA [id number] [place] [address] [place] Bilirubin [Mass/Vol] 0.4 mg/dL Normal 0.2-1.0 [facility] Comment on above: Order Comment: Speci men Type: BLOOD SPECIMENOrdering Facility: [facility] Address: [address] [address] Performed By: #### 2 4323-8 ####[facility] LABORATORYCLIA [id number] [place] [address] [place] Calcium [Mass/Vol] 9.5 mg/dL Normal 8.5-10.5 [facility] Comment on above: Order Comment: Speci men Type: BLOOD SPECIMENOrdering Facility: [facility] Address: [address] [address] Performed By: #### 2 4323-8 ####[facility] LABORATORYCLIA [id number] [place] [address] [place] Chloride [Moles/Vol] 103 mmol/L Normal 98-107 [facility] Comment on above: Order Comment: Speci men Type: BLOOD SPECIMENOrdering Facility: [facility] Address: [address] [place] [address] Performed By: #### 2 4323-8 ####[facility] LABORATORYCLIA [id number] [place] [address] [place] CO2 [Moles/Vol] 27 mmol/L Normal 21-32 [facility] Comment on above: Order Comment: Speci men Type: BLOOD SPECIMENOrdering Facility: [facility] Address: [address] [place] [address] Performed By: #### 2 4323-8 ####[facility] LABORATORYCLIA [id number] [place] [address] [place] Creatinine [Mass/Vol] 1.96 mg/dL High 0.50-1.40 [facility] Comment on above: Order Comment: Speci men Type: BLOOD SPECIMENOrdering Facility: [facility] Address: [address] [place] [address] Result Comment: Hyun ents receiving either N-Acetylcysteine (NAC) or Metamizole prior to venipuncture, may have falsely depressed results. Performed By: #### 2 4323-8 ####[facility] LABORATORYCLIA [id number] [address] [facility] ESTIMATED GLOMERULAR FILTRATION RATE 39 mL/min/1.73m??? Low >=60 [facility] Comment on above: Order Comment: Speci men Type: BLOOD SPECIMENOrdering Facility: [facility] Address: [address] [place] [address] Result Comment: Laurita mated Glomerular Filtration Rate [...] Performed By: #### 2 4323-8 ####[facility] LABORATORYCLIA [id number] [address] [id number] [place] Glucose [Mass/Vol] 114 mg/dL High 70-100 [facility] Comment on above: Order Comment: Aaliyah gibson Type: BLOOD SPECIMENOrdering Facility: [facility] Address: [address] [address] Result Comment: The [place] Diabetes Association (ADA) provides guidance for cutoff [...] Standards of Medical Care in Diabetes 2016, [place] [employer] Association. Diabetes Care. 2016.39(Suppl 1). Results may be falsely elevated after the administration of Sulfapyridine. Results may be falsely depressed after the administration of Sulfasalazine. Performed By: #### 2 4323-8 ####[facility] LABORATORYCLIA [id number] [place] [address] [place] Potassium [Moles/Vol] 4.7 mmol/L Normal 3.5-5.1 [facility] Comment on above: Order Comment: Aaliyah gibson Type: BLOOD SPECIMENOrdering Facility: [facility] Address: [address] [phone] Performed By: #### 2 4323-8 ####[facility] LABORATORYCLIA [id number] [place] [id number] [place] Protein [Mass/Vol] 7.2 g/dL Normal 6.0-8.5 [facility] Comment on above: Order Comment: Speci men Type: BLOOD SPECIMENOrdering Facility: [facility] Address: [address] [address] Performed By: #### 2 4323-8 ####[facility] LABORATORYCLIA [id number] [place] [address] [place] Sodium [Moles/Vol] 139 mmol/L Normal 136-145 [facility] Comment on above: Order Comment: Speci men Type: BLOOD SPECIMENOrdering Facility: [facility] Address: [address] [address] Performed By: #### 2 4323-8 ####[facility] LABORATORYCLIA [id number] [place] [address] [place] Urea nitrogen [Mass/Vol] 23 mg/dL Normal 7-26 [facility] Comment on above: Order Comment: Speci men Type: BLOOD SPECIMENOrdering Facility: [facility] Address: [address] [address] Performed By: #### 2 4323-8 ####[facility] LABORATORYCLIA [id number] [place] [address] [place] Albumin [Mass/Vol] 3.5 g/dL 3.2 - 5.0 g/dL [facility] ALP [Catalytic activity/Vol] 107 U/L 45 - 117 U/L [facility] ALT [Catalytic activity/Vol] 102 U/L High 13 - 61 U/L [facility] Anion gap [Moles/Vol] 9 mmol/L 5 - 16 mmol/L [facility] AST [Catalytic activity/Vol] 62 U/L High 8 - 34 U/L [facility] Bilirubin [Mass/Vol] 0.4 mg/dL 0.2 - 1 .0 mg/dL [facility] Calcium [Mass/Vol] 9.5 mg/dL 8.5 - 10. 5 mg/dL [facility] Chloride [Moles/Vol] 103 mmol/L 98 - 10 7 mmol/L [facility] CO2 [Moles/Vol] 27 mmol/L 21 - 32 mmol/L [facility] Creatinine [Mass/Vol] 1.96 mg/dL High 0.50 - 1.40 mg/dL [facility] Estimated Glomerular Filtration Rate 39 mL/min/1.73m Low >=60 mL/min/1.7 3m [facility] Glucose [Mass/Vol] 114 mg/dL High 70 - 100 mg/dL [facility] Potassium [Moles/Vol] 4.7 mmol/L 3.5 - 5.1 mmol/L [facility] Protein [Mass/Vol] 7.2 g/dL 6.0 - 8.5 g/dL [facility] Sodium [Moles/Vol] 139 mmol/L 136 - 145 mmol/L [facility] Urea nitrogen [Mass/Vol] 23 mg/dL 7 - 26 mg/dL [facility] CNOVon 02-16-2022 CNOV Office Visit ([facility] ) ----- YEFRI YANEZ ([id number]) 1965 M [facility] Date Time Provider Department 02/16/22 10:00 AM SAYRA TELLO During your visit today, we recorded the following information about you: Pulse Blood pressure Weight Height 51/minute 90/64 115.7 kg 1.803 m Sayra Tello MD 02/16/2022 11:29 AM Signed [facility] OUTPATIENT VISIT DATE 02/16/2022 OUTPATIENT VISIT TYPE NEW PATIENT PRIMARY CARE PHYSICIAN: Daksha Turner (Sarah) [address] [place] [id number] HISTORY OF PRESENT ILLNESS: 57-year-old male CAD, [...] vaping sometimes tobacco. 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 PAST MEDICAL HISTORY Diagnosis Date Abdominal aortic [...] A DAY cyclobenzapr (more content not included)... [facility] ) ----- YEFRI YANEZ ([id number]) 1965 M [facility] Date Time Provider Department 02/13/22 2:00 PM [facility] During your visit today, we recorded the following information about you: Temperature Pulse Respiration Blood pressure 98.2 degrees 64/minute 22/minute 138/87 Weight 119.7 kg Suman Peterson APRN.BOOSTER ASSEMBLER 02/13/2022 2:41 PM Signed Radiation Oncology - [...] Mason RN (more content not included)... Normal [facility] CBCon 02-10-2022 Erythrocyte distribution width (RBC) [Ratio] 18.6 % High 11.5 - 14.5 [facility] Comment on above: Performed By: #### C BC #### [address] [address] Hematocrit (Bld) [Volume fraction] 41.8 % Normal 41.0 - 52.0 [facility] Comment on above: Performed By: #### C BC #### [address] [address] Hemoglobin (Bld) [Mass/Vol] 13.0 g/dL Low 13.5 - 17.5 [facility] Comment on above: Performed By: #### C BC #### [address] [address] MCHC (RBC) [Mass/Vol] 31.1 g/dL Low 32.0 - 36.0 [facility] Comment on above: Performed By: #### C BC #### [address] [address] MCV (RBC) [Entitic vol] 100 fL Normal 80 - 100 [facility] Comment on above: Performed By: #### C BC #### [address] [address] NUCLEATED RBC 0.0 /100 WBC Normal 0.0 - 0.0 [facility] Comment on above: Performed By: #### C BC #### [address] [address] Platelets (Bld) [#/Vol] 162 10*3/uL Normal 150 - 450 [facility] Comment on above: Performed By: #### C BC #### [address] [place] [address] RBC 4.17 x10E12/L Low 4.50 - 5.90 [facility] Comment on above: Performed By: #### C BC #### [address] [place] [address] WBC (Bld) [#/Vol] 5.5 10*3/uL Normal 4.4 - 11.3 [facility] Comment on above: Performed By: #### C BC #### [address] [place] [address] Daily Progress Note-Medicine on 02-10-2022 Daily Progress [...] night. Objective Data: Objective Information: T PRBPMAPSpO2 [id number]/45408% Date/Time02/10 8: 8: 8: 8: 8:00 Range(36.1C - 36.6C ) (57 - 80 ) (16 - 20 ) (138 - 167 )/ (91 - 126 ) (94% - 100% ) As of 09-Feb-2022 21:15:00, patient is on 3 L/min of oxygen via room air. Pain reported at 02/10 9:46: 0 = None ---- Intake and Output ----- Mn/Dy/Year TimeIntakeOutputNet Feb 10, 2022 6:00 [id number] Feb 09, 2022 10:00 [id number] Feb 09, 2022 2:00 [id number] The Intake and Output Totals for the last 24 hours are: IntakeOutunm children's psychiatric centerNet [id number] Physical Exam Narrative: Physical Exam: General: Appears [...] 12.5 mg (more content not included)... Normal [facility] Daily Progress Note-Urologyo n 02-10-2022 Daily Progress [...] overnight. Objective Data: Objective Information: T PRBPMAPSpO2 [id number]/99393% Date/Time02/10 8: 8: 8: 8: 8:00 Range(36.1C - 36.6C ) (57 - 80 ) (16 - 20 ) (138 - 167 )/ (91 - 126 ) (94% - 100% ) As of 09-Feb-2022 21:15:00, patient is on 3 L/min of oxygen via nasal cannula. Pain reported at 02/10 0:00: 0 = None ---- Intake and Output ----- Mn/Dy/Year [facility]Int[facility]Out[facility] Feb 10, 2022 6:00 [id number] Feb 09, 2022 10:00 [id number] Feb 09, 2022 2:00 [id number] The Intake and Output Totals for the last 24 hours are: IntakeOutNovant Health [facility] [id number] Physical Exam by System: Constitutional: Well developed, [...] on c (more content not included)... Normal [facility] PT Evaluation v2-physical th erapyon 02-10-2022 PT Evaluation v2-physical therapy Rehab: Info: Mode of Treatmentphysical therapy Time IN09:58 Time OUT10:08 Total Treatment [id number] Patient in ... at end of sessionbed, 3 railings up Communicated with ... at end of sessionbedside nurse Patient Effortgood Symptoms Noted During/After Treatmentnone Patient Profile Reviewedyes Onset of Illness/Injury or Date of [id number] Reason for Referralimpaired mobility, gait training, impaired cognition/safety awareness Referring PhysicianDr. Hernandez General Observations of PatientCleared by nursing to work with patient. Pt supine in bed with HOB elevated. Pt in no apparent distress and willing to participate in therapy. RN agreeable to have patient out of bed and into chair. Pertinent History of Current Functional Mhectlm12-egna-qjv male patient status post laparoscopic right radical [...] ambulate with no device. 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 Pt denies falls. Line and Tubestelemetry Vision/Cognition: Affect/Mental Status (Cognitive)WNL Orientation Status (Cognition)oriented x 4 ROM: Lower Extremity: Range of Motionleft lower extremity ROM WFL; right lower extremity ROM WFL MMT: Lower Extremity: Manual Muscle Testing (MMT)left lower extremity strength WFL; right lower extremity strength WFL Mobility/Tone: Bed Mobility Assessment/Interventionss upine to sit Htdiwa-ba-Yit [place] (Bed Mobility)independent Transfer Assessment/Interventionss it to stand transfer; stand to sit transfer Sit-Stand [place] (Transfers)modified independence Sit-Stand Assistive Device (Transfers)walker, front-wheeled Stand-Sit [place] (Transfers)modified independence Stand-Sit Assistive Device (Transfers)walker, front-wheeled Gait/Stairs Locomotiongait/ambulation assistive device; gait/ambulation independence; distance ambulated Gait Locomotion (Gait)modified independence Assistive Device (Gait Training)walker, front-wheeled Distance in Feet (Gait Training)250 ft WFLs Motor: Sitting, Static (Balance)good balance Sitting, Dynamic (Balance)good balance Brc-ig-Jfhph (Balance)good balance Standing, Static (Balance)good balance Standing, Dynamic (Balance)good balance Sensory: Pre-Treatment Pain Rating0/10 - no pain Post-Treatment Pain Rating2/10 Comment, Pre/Post Treatment Painsoreness reported at incision site Sensory General Assessmentno sensation deficits identified Health: Observed Emotional Statecooperative; pleasant Plan of Care Reviewed Withpatient Impression: Criteria for Skilled Therapeutic Interventions Met (PT Eval)yes; treatment indicated PT GcfckdiimL29.2 difficulty walking Physical Therapy Prognosisgood System Pathology/Pathophysiology [...] (PT Eval)5 times/wk Predicted Duration of Therapy Xwubvvaxjddk05 days Planned Therapy Interventions (PT Eval)balance training; [...] Score22 Short Term Goals: Gait: Established Gait: [place] Level Goalindependent Gait: Distance Xarc383 ft Gait: Time Frame for Goal2 wks Balance: Established Ba (more content not included)... Normal [facility] RENAL FUNCTION PANELon 02-10 Albumin [Mass/Vol] 3.4 g/dL Normal 3.4 - 5.0 [facility] Comment on above: Performed By: #### C BC #### [address] [place] [address] Anion gap [Moles/Vol] 11 mmol/L Normal 10 - 20 [facility] Comment on above: Performed By: #### C BC #### [address] [place] [address] Calcium [Mass/Vol] 8.5 mg/dL Low 8.6 - 10.3 [facility] Comment on above: Performed By: #### C BC #### [address] [place] [address] Chloride [Moles/Vol] 103 mmol/L Normal 98 - 107 [facility] Comment on above: Performed By: #### C BC #### [address] [place] [address] Creatinine [Mass/Vol] 1.48 mg/dL High 0.50 - 1.30 [facility] Comment on above: Performed By: #### C BC #### [address] [place] [address] GFR/1.73 sq M.predicted among non-blacks MDRD (S/P/Bld) [Vol rate/Area] 54 mL/min/{1.73_m2} Abnormal >90 [facility] Comment on above: Result Comment: CALC ULATIONS OF ESTIMATED GFR ARE PERFORMED USING THE 2020 CKD-EPI STUDY REFIT EQUATION WITHOUT THE RACE VARIABLE FOR THE IDMS-TRACEABLE CREATININE METHODS. https://jasn.asnjournals.org/content/early//ASN.2020 031967 Performed By: #### C BC #### [address] [place] [address] Glucose [Mass/Vol] 107 mg/dL High 74 - 99 [facility] Comment on above: Performed By: #### C BC #### [address] [place] [address] HCO3 (Bld) [Moles/Vol] 31 mmol/L Normal 21 - 32 [facility] Comment on above: Performed By: #### C BC #### [address] [address] Phosphate [Mass/Vol] 1.5 mg/dL Low 2.5 - 4.9 [facility] Comment on above: Result Comment: The performance characteristics of phosphorus testing in heparinized plasma have been validated by the individual laboratory site where testing is performed. Testing on heparinized plasma is not approved by the FDA; however, such approval is not necessary. Performed By: #### C BC #### [address] [address] Potassium [Moles/Vol] 3.9 mmol/L Normal 3.5 - 5.3 [facility] Comment on above: Performed By: #### C BC #### [address] [address] Sodium [Moles/Vol] 141 mmol/L Normal 136 - 145 [facility] Comment on above: Performed By: #### C BC #### [address] [address] Urea nitrogen [Mass/Vol] 21 mg/dL Normal 6 - 23 [facility] Comment on above: Performed By: #### C BC #### [address] [address] CBCon 02-09-2022 Erythrocyte distribution width (RBC) [Ratio] 19.1 % High 11.5 - 14.5 [facility] Comment on above: Performed By: #### C BC #### [address] [address] Hematocrit (Bld) [Volume fraction] 43.1 % Normal 41.0 - 52.0 [facility] Comment on above: Performed By: #### C BC #### [address] [address] Hemoglobin (Bld) [Mass/Vol] 13.5 g/dL Normal 13.5 - 17.5 [facility] Comment on above: Performed By: #### C BC #### [address] [address] MCHC (RBC) [Mass/Vol] 31.3 g/dL Low 32.0 - 36.0 [facility] Comment on above: Performed By: #### C BC #### [address] [address] MCV (RBC) [Entitic vol] 100 fL Normal 80 - 100 [facility] Comment on above: Performed By: #### C BC #### [address] [address] NUCLEATED RBC 0.0 /100 WBC Normal 0.0 - 0.0 [facility] Comment on above: Performed By: #### C BC #### [address] [address] Platelets (Bld) [#/Vol] 150 10*3/uL Normal 150 - 450 [facility] Comment on above: Performed By: #### C BC #### [address] [address] RBC 4.29 x10E12/L Low 4.50 - 5.90 [facility] Comment on above: Performed By: #### C BC #### [address] [address] WBC (Bld) [#/Vol] 5.8 10*3/uL Normal 4.4 - 11.3 [facility] Comment on above: Performed By: #### C BC #### [address] [address] Daily Progress Note-Medicine on 02-09-2022 Daily Progress [...] night. Objective Data: Objective Information: T PRBPMAPSpO2 [id number]/330464% Date/Time02/09 8: 8: 8: 8: 8:00 Range(36.4C [...] ----- Mn/Dy/Year TimeIntakeOutputNet Feb 09, 2022 6:00 [id number] Feb 08, 2022 10:00 [id number] Feb 08, 2022 2:00 [id number] The Intake and Output Totals for the last 24 hours are: IntakeOutputNet [id number] Physical Exam Narrative: Physical Exam: General: Appears [...] & Recom (more content not included)... Normal [facility] Daily Progress Note-Urologyo n 02-09-2022 Daily Progress [...] well. Objective Data: Objective Information: T PRBPMAPSpO2 [id number]/478622% Date/Time02/09 8: 8: 8: 8: 8:00 Range(36.4C [...] Mild ---- Intake and Output ----- [facility] Feb 09, 2022 6:00 [id number] Feb 08, 2022 10:00 [id number] Feb 08, 2022 2:00 [id number] The Intake and Output Totals for the last 24 hours are: [facility] [id number] Physical Exam by System: Constitutional: Well developed, [...] - ap (more content not included)... Normal [facility] Discharge Planning Sxif5of 1 04-12-2021 Discharge Planning Note2 Discharge Planning: Needs Prior to Discharge (ex. 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 Patient with no use of HHC or DME prior to admission. Patient currently on 3L of O2 with no prior home O2 use. This TCC verified the patient's ability to obtain/afford medications. Patient's needs are TBD at this time, pending therapy evaluations. Patient lives at home in [place] with Miya and plans to return there. Family to provide transport at the time of d/c. Kitty Farias RN TCC 02/10- PT recs HHC. This TCC met with the pt at the bedside. Pt is currently refusing HHC, at this time. However, pt wants a walker. This TCC received a walker script and sent a referral to [facility] for delivery. Family to provide transport at the time of d/c. Cameron Atwood Assessment: Discharge Planning Assessment [id number] Discharge Planning Assessment Completed Kevin Farias Primary Contact Name and NumberwifeMiya [phone] Prior Level of FunctioningIndependent Lives Withspouse Stated Reason for Admissionright laparoscopic nephrectomy [place] [facility] [place] Recent [facility]/ Injury/ Need Assist with Ambulationn/a Home Care Agency/Support ServicesN/A Resource/Environmental Concernsnone Anticipated [place] [facility] [facility] Anticipated at Transitionnone Readmission Within the Last 30 Daysno previous admission in last 30 days PCP Last Date Seenlast month InsuranceMMO Super Med Special Considerationsn/a Transportation Home Who/Fidel (, Miya [phone]) Medication Adherence/Afford/Obtainye s Discharge Documentation: Discharge/Transfer Date/[id number] 18:00 Discharged Accompanied Byspouse Transportation Methodprivate car Discharge Modewheelchair Code StatusCode Status order at time of discharge: Full Code Discharge Order Writtenyes [place] DNR Form Sent with Patient and/or Familyn/a Valuables/Medications/Bel ongings Returnedyes Final Disposition.Home Electronic Signatures: Kitty Farias (STAFF N) (Signed 09-Feb-2022 11:10) Authored: Discharge Planning, Assessment, Discharge Documentation Cameron Atwood (RN) (Signed 10-Feb-2022 11:44) Authored: Discharge Planning, Discharge Documentation Marysol Hussein (STAFF N) (Signed 10-Feb-2022 18:21) Authored: Discharge Planning, Discharge Documentation Last Updated: 10-Feb-2022 18:21 by Marysol Hussein (STAFF N) Normal [facility] RENAL FUNCTION PANELon 02-09 Albumin [Mass/Vol] 3.5 g/dL Normal 3.4 - 5.0 [facility] Comment on above: Performed By: #### C BC #### [address] [address] Anion gap [Moles/Vol] 10 mmol/L Normal 10 - 20 [facility] Comment on above: Performed By: #### C BC #### [address] [address] Calcium [Mass/Vol] 8.8 mg/dL Normal 8.6 - 10.3 [facility] Comment on above: Performed By: #### C BC #### [address] [place] [address] Chloride [Moles/Vol] 102 mmol/L Normal 98 - 107 [facility] Comment on above: Performed By: #### C BC #### [address] [address] Creatinine [Mass/Vol] 1.84 mg/dL High 0.50 - 1.30 [facility] Comment on above: Performed By: #### C BC #### [address] [address] GFR/1.73 sq M.predicted among non-blacks MDRD (S/P/Bld) [Vol rate/Area] 42 mL/min/{1.73_m2} Abnormal >90 [facility] Comment on above: Result Comment: CALC ULATIONS OF ESTIMATED GFR ARE PERFORMED USING THE 2020 CKD-EPI STUDY REFIT EQUATION WITHOUT THE RACE VARIABLE FOR THE IDMS-TRACEABLE CREATININE METHODS. https://jasn.asnjournals.org/content/early//ASN.2020 349445 Performed By: #### C BC #### [address] [address] Glucose [Mass/Vol] 127 mg/dL High 74 - 99 [facility] Comment on above: Performed By: #### C BC #### [address] [address] HCO3 (Bld) [Moles/Vol] 33 mmol/L High 21 - 32 [facility] Comment on above: Performed By: #### C BC #### [address] [address] Phosphate [Mass/Vol] 2.8 mg/dL Normal 2.5 - 4.9 [facility] Comment on above: Result Comment: The performance characteristics of phosphorus testing in heparinized plasma have been validated by the individual laboratory site where testing is performed. Testing on heparinized plasma is not approved by the FDA; however, such approval is not necessary. Performed By: #### C BC #### [address] [address] Potassium [Moles/Vol] 4.3 mmol/L Normal 3.5 - 5.3 [facility] Comment on above: Performed By: #### C BC #### [address] [address] Sodium [Moles/Vol] 141 mmol/L Normal 136 - 145 [facility] Comment on above: Performed By: #### C BC #### [address] [address] Urea nitrogen [Mass/Vol] 25 mg/dL High 6 - 23 [facility] Comment on above: Performed By: #### C BC #### [address] [address] CBCon 02-08-2022 Erythrocyte distribution width (RBC) [Ratio] 19.7 % High 11.5 - 14.5 [facility] Comment on above: Performed By: #### C BC #### [address] [address] Hematocrit (Bld) [Volume fraction] 46.7 % Normal 41.0 - 52.0 [facility] Comment on above: Performed By: #### C BC #### [address] [address] Hemoglobin (Bld) [Mass/Vol] 14.0 g/dL Normal 13.5 - 17.5 [facility] Comment on above: Performed By: #### C BC #### [address] [address] MCHC (RBC) [Mass/Vol] 30.0 g/dL Low 32.0 - 36.0 [facility] Comment on above: Performed By: #### C BC #### [address] [address] MCV (RBC) [Entitic vol] 106 fL High 80 - 100 [facility] Comment on above: Performed By: #### C BC #### [address] [address] NUCLEATED RBC 0.3 /100 WBC Normal 0.0 - 0.0 [facility] Comment on above: Performed By: #### C BC #### [address] [address] Platelets (Bld) [#/Vol] 123 10*3/uL Low 150 - 450 [facility] Comment on above: Performed By: #### C BC #### [address] [place] [address] RBC 4.42 x10E12/L Low 4.50 - 5.90 [facility] Comment on above: Performed By: #### C BC #### [address] [place] [address] WBC (Bld) [#/Vol] 6.8 10*3/uL Normal 4.4 - 11.3 [facility] Comment on above: Performed By: #### C BC #### [address] [address] COMPREHENSIVE PANELon 2021 Albumin [Mass/Vol] 3.5 g/dL Normal 3.4 - 5.0 [facility] Comment on above: Performed By: #### C MP #### [address] [address] ALP [Catalytic activity/Vol] 54 U/L Normal 33 - 120 [facility] Comment on above: Performed By: #### C MP #### [address] [address] ALT [Catalytic activity/Vol] 121 U/L High 10 - 52 [facility] Comment on above: Result Comment: Hyun ents treated with Sulfasalazine may generate falsely decreased results for ALT. Performed By: #### C MP #### [address] [place] [address] Anion gap [Moles/Vol] 14 mmol/L Normal 10 - 20 [facility] Comment on above: Performed By: #### C MP #### [address] [address] AST [Catalytic activity/Vol] 83 U/L High 9 - 39 [facility] Comment on above: Result Comment: MILD HEMOLYSIS DETECTED. The result may be falsely elevated due to hemolysis or other interferents. Clinical correlation is recommended. Repeat testing may be considered. Performed By: #### C MP #### [address] [place] [address] Bilirubin [Mass/Vol] 0.9 mg/dL Normal 0.0 - 1.2 [facility] Comment on above: Performed By: #### C MP #### [address] [address] Calcium [Mass/Vol] 8.5 mg/dL Low 8.6 - 10.3 [facility] Comment on above: Performed By: #### C MP #### [address] [address] Chloride [Moles/Vol] 103 mmol/L Normal 98 - 107 [facility] Comment on above: Performed By: #### C MP #### [address] [address] Creatinine [Mass/Vol] 1.90 mg/dL High 0.50 - 1.30 [facility] Comment on above: Performed By: #### C MP #### [address] [address] GFR/1.73 sq M.predicted among non-blacks MDRD (S/P/Bld) [Vol rate/Area] 40 mL/min/{1.73_m2} Abnormal >90 [facility] Comment on above: Result Comment: CALC ULATIONS OF ESTIMATED GFR ARE PERFORMED USING THE 2020 CKD-EPI STUDY REFIT EQUATION WITHOUT THE RACE VARIABLE FOR THE IDMS-TRACEABLE CREATININE METHODS. https://jasn.asnjournals.org/content//ASN.2020 404588 Performed By: #### C MP #### [address] [address] Glucose [Mass/Vol] 92 mg/dL Normal 74 - 99 [facility] Comment on above: Performed By: #### C MP #### [address] [address] HCO3 (Bld) [Moles/Vol] 24 mmol/L Normal 21 - 32 [facility] Comment on above: Performed By: #### C MP #### [address] [address] Potassium [Moles/Vol] 4.2 mmol/L Normal 3.5 - 5.3 [facility] Comment on above: Result Comment: MILD HEMOLYSIS DETECTED. The result may be falsely elevated due to hemolysis or other interferents. Clinical correlation is recommended. Repeat testing may be considered. Performed By: #### C MP #### [address] [address] Protein [Mass/Vol] 6.0 g/dL Low 6.4 - 8.2 [facility] Comment on above: Performed By: #### C MP #### [address] [address] Sodium [Moles/Vol] 137 mmol/L Normal 136 - 145 [facility] Comment on above: Performed By: #### C MP #### [address] [address] Urea nitrogen [Mass/Vol] 31 mg/dL High 6 - 23 [facility] Comment on above: Performed By: #### C MP #### [address] [address] Daily Progress Note-Medicine on 02-08-2022 Daily Progress [...] night. Objective Data: Objective Information: T PRBPMAPSpO2 [id number] % Date/Time02/08 8: 8: 8: 8: 11: [...] Mild ---- Intake and Output ----- Mn/Dy/[facility] Feb 08, 2022 6:00 [id number] Feb 07, 2022 10:00 [id number] Feb 07, 2022 2:00 pm228.8250-22 The Intake and Output Totals for the last 24 hours are: IntakeOutputNet [id number] Physical Exam Narrative: Physical Exam: General: Appears [...] # Atelectasi (more content not included)... Normal [facility] Daily Progress Note-Urologyo n 02-08-2022 Daily Progress [...] complaints. Objective Data: Objective Information: T PRBPMAPSpO2 [id number]/[id number] % Date/Time02/08 8: 8: 8: 8: 11: [...] ----- Mn/Dy/Year TimeIntakeOutputNet Feb 08, 2022 6:00 [id number] Feb 07, 2022 10:00 [id number] Feb 07, 2022 2:00 pm228.8250-22 The Intake and Output Totals for the last 24 hours are: [facility]OutNov[facility] [id number] Physical Exam Narrative: Physical Exam: General: in [...] Updated: 08-Feb-2022 10:32 by Andre Mota) Normal [facility] ARTERIAL FULL PANELon 12-03- 2022 OXY HGB 92.9 % Low 94.0 - 98.0 [facility] Comment on above: Result Comment: Test report [...] 08:50 Performed By: #### C BC #### [address] [place] [address] SO2 93 % Low 94 - 100 [facility] Comment on above: Result Comment: Test report [...] 08:50 Performed By: #### C BC #### [place] [id number] LANRE'S TEST[COLLATERAL CIRCULATION] YES, RR Normal [facility] Comment on above: Performed By: #### C BC #### [place] [id number] Anion gap [Moles/Vol] 9 mmol/L Low 10 - 25 [facility] Comment on above: Performed By: #### C BC #### [address] [address] BASE EXCESS-BLOOD 2.9 mmol/L Normal -2.0 - 3.0 [facility] Comment on above: Performed By: #### C BC #### [address] [address] BICARB, CALCULATED 31.0 mmol/L High 22.0 - 26.0 [facility] Comment on above: Performed By: #### C BC #### [address] [place] [address] CALCIUM,IONIZED 1.17 mmol/L Normal 1.10 - 1.33 [facility] Comment on above: Performed By: #### C BC #### [address] [place] [address] Chloride [Moles/Vol] 105 mmol/L Normal 98 - 107 [facility] Comment on above: Performed By: #### C BC #### [address] [place] [address] EPAP CMH2O 8.0 cm H2O Normal [facility] Comment on above: Performed By: #### C BC #### [address] [address] FLOW 8.0 LPM Normal [facility] Comment on above: Performed By: #### C BC #### [address] [address] Glucose [Mass/Vol] 117 mg/dL High 74 - 99 [facility] Comment on above: Performed By: #### C BC #### [address] [address] Hematocrit (Bld) [Volume fraction] 40.0 % Low 41.0 - 52.0 [facility] Comment on above: Performed By: #### C BC #### [address] [place] [address] Hemoglobin (Bld) [Mass/Vol] 13.2 g/dL Normal 13.5 - 17.5 [facility] Comment on above: Result Comment: Test report has been amended to note detection of an absorbance or turbidity error which may cause inaccurate results. The result is unchanged but should be interpreted with caution and in conjunction with additional laboratory information. Performed By: #### C BC #### [address] [place] [address] IPAP CMH2O 16.0 cm H2O Normal [facility] Comment on above: Performed By: #### C BC #### [address] [place] [address] Lactate [Moles/Vol] 0.9 mmol/L Normal 0.4 - 2.0 [facility] Comment on above: Performed By: #### C BC #### [address] [address] Oxygen (Bld) [Partial pressure] 95 mm[Hg] Normal 85 - 95 [facility] Comment on above: Performed By: #### C BC #### [address] [address] PATIENT TEMPERATURE 37.0 degrees C Normal [facility] Comment on above: Result Comment: NOTE : PATIENT RESULTS ARE NOT CORRECTED FOR TEMPERATURE. Performed By: #### C BC #### [address] [address] PCO2 63 mmHg High 38 - 42 [facility] Comment on above: Performed By: #### C BC #### [address] [address] pH (Bld) 7.30 [pH] Low 7.38 - 7.42 [facility] Comment on above: Performed By: #### C BC #### [address] [address] Potassium [Moles/Vol] 4.6 mmol/L Normal 3.5 - 5.3 [facility] Comment on above: Performed By: #### C BC #### [address] [address] Sodium [Moles/Vol] 140 mmol/L Normal 136 - 145 [facility] Comment on above: Performed By: #### C BC #### [address] [address] VENTILATOR MODE BiPAP Normal [facility] Comment on above: Performed By: #### C BC #### [address] [address] LANRE'S TEST[COLLATERAL CIRCULATION] N/A Normal [facility] Comment on above: Order Comment: BIPAP 14/8 4 LPM Performed By: #### A FPA4 ####[address] [address] Anion gap [Moles/Vol] 11 mmol/L Normal 10 - 25 [facility] Comment on above: Order Comment: BIPAP 19/10 4 LPM Performed By: #### A FPA4 ####[address] [address] BASE EXCESS-BLOOD 1.5 mmol/L Normal -2.0 - 3.0 [facility] Comment on above: Order Comment: BIPAP 19/10 4 LPM Performed By: #### A FPA4 ####[address] [address] BICARB, CALCULATED 30.3 mmol/L High 22.0 - 26.0 [facility] Comment on above: Order Comment: BIPAP 19/10 4 LPM Performed By: #### A FPA4 ####[address] [address] CALCIUM,IONIZED 1.18 mmol/L Normal 1.10 - 1.33 [facility] Comment on above: Order Comment: BIPAP 19/10 4 LPM Performed By: #### A FPA4 ####[address] [address] Chloride [Moles/Vol] 104 mmol/L Normal 98 - 107 [facility] Comment on above: Order Comment: BIPAP 19/10 4 LPM Performed By: #### A FPA4 ####[address] [address] Glucose [Mass/Vol] 168 mg/dL High 74 - 99 [facility] Comment on above: Order Comment: BIPAP 19/10 4 LPM Performed By: #### A FPA4 ####[address] [place] [address] Hematocrit (Bld) [Volume fraction] 42.0 % Normal 41.0 - 52.0 [facility] Comment on above: Order Comment: BIPAP 14 4 LPM Performed By: #### A FPA4 ####[address] [address] Hemoglobin (Bld) [Mass/Vol] 14.1 g/dL Normal 13.5 - 17.5 [facility] Comment on above: Order Comment: BIPAP 14/8 4 LPM Performed By: #### A FPA4 ####[address] [address] Lactate [Moles/Vol] 0.9 mmol/L Normal 0.4 - 2.0 [facility] Comment on above: Order Comment: BIPAP 14/ 4 LPM Performed By: #### A FPA4 ####[address] [address] OXY HGB 87.0 % Low 94.0 - 98.0 [facility] Comment on above: Order Comment: BIPAP 14/ 4 LPM Performed By: #### A FPA4 ####[address] [address] Oxygen (Bld) [Partial pressure] 63 mm[Hg] Low 85 - 95 [facility] Comment on above: Order Comment: BIPAP 14/ 4 LPM Performed By: #### A FPA4 ####[address] [address] PATIENT TEMPERATURE 37.0 degrees C Normal [facility] Comment on above: Order Comment: BIPAP 14/ 4 LPM Result Comment: NOTE : PATIENT RESULTS ARE NOT CORRECTED FOR TEMPERATURE. Performed By: #### A FPA4 ####[address] [address] PCO2 66 mmHg High 38 - 42 [facility] Comment on above: Order Comment: BIPAP 14/8 4 LPM Performed By: #### A FPA4 ####[address] [address] pH (Bld) 7.27 [pH] Low 7.38 - 7.42 [facility] Comment on above: Order Comment: BIPAP 14/8 4 LPM Performed By: #### A FPA4 ####[address] [address] Potassium [Moles/Vol] 4.4 mmol/L Normal 3.5 - 5.3 [facility] Comment on above: Order Comment: BIPAP 14/8 4 LPM Performed By: #### A FPA4 ####[address] [address] SO2 89 % Low 94 - 100 [facility] Comment on above: Order Comment: BIPAP 14/ 4 LPM Performed By: #### A FPA4 ####[address] [address] Sodium [Moles/Vol] 141 mmol/L Normal 136 - 145 [facility] Comment on above: Order Comment: BIPAP 19/10 4 LPM Performed By: #### A FPA4 ####[address] [address] CBCon 02-07-2022 Erythrocyte distribution width (RBC) [Ratio] 19.1 % High 11.5 - 14.5 [facility] Comment on above: Performed By: #### C BC ####[address] [address] Hematocrit (Bld) [Volume fraction] 43.1 % Normal 41.0 - 52.0 [facility] Comment on above: Performed By: #### C BC ####[address] [address] Hemoglobin (Bld) [Mass/Vol] 13.6 g/dL Normal 13.5 - 17.5 [facility] Comment on above: Performed By: #### C BC ####[address] [address] MCHC (RBC) [Mass/Vol] 31.6 g/dL Low 32.0 - 36.0 [facility] Comment on above: Performed By: #### C BC ####[address] [address] MCV (RBC) [Entitic vol] 100 fL Normal 80 - 100 [facility] Comment on above: Performed By: #### C BC ####[address] [address] NUCLEATED RBC 0.4 /100 WBC Normal 0.0 - 0.0 [facility] Comment on above: Performed By: #### C BC ####[id number] [facility] [place] [address] Platelets (Bld) [#/Vol] 150 10*3/uL Normal 150 - 450 [facility] Comment on above: Performed By: #### C BC ####[place] [id number] [facility] [place] [address] RBC 4.32 x10E12/L Low 4.50 - 5.90 [facility] Comment on above: Performed By: #### C BC ####[address] [address] WBC (Bld) [#/Vol] 7.1 10*3/uL Normal 4.4 - 11.3 [facility] Comment on above: Performed By: #### C BC ####[address] [address] Consult-DACR, Medicineon Consult-DACR, Medicine Service: Service: DACR [...] Mushrooms: Unknown Objective: Objective Information: T PRBPMAPSpO2 [id number]/265765% Date/Time02/07 16: 16: 16: 16: 11: 16:00 [...] 2.9 Bi (more content not included)... Normal [facility] Daily Progress Note - Critic Mcbride 02-07-2022 Daily Progress Note - Critical Care Subjective Data: ID Statement: YEFRI YANEZ is a 57 year old Male who is Hospital Day # 2 and ICU Day #2 and POD #1 for laparoscopic right radical nephrectomy. AAOx3, on nasal cannula. No complaints of pain on exam. Resting comfortably. Objective Data: Objective Information T PRBPMAPSpO2 [id number]/092413% Date/Time02/07 4: 7: 7: 7: 7: 7:00 [...] for the last 24 hours are: IntakeOutputNet [id number] Drain and tube details (included in I&O totals) 1100 cc Indwelling Catheter - Urethral( 07-Feb-2022 06:00:00 ) Date: Weight/Scale Type: 07-Feb-2022 06:82385.7 kg / bed 06-Feb-2022 09:61501 kg 06-Feb-2022 09:36218 kg Physical Exam by System: Neurological: alert [...] h range: ( 7.26 - 7.45 ) [id number] 24 h range: ( 46 - 68 ) SO293 24 h range: ( 87 (more content not included)... Normal [facility] Daily Progress Note-Urologyo n 02-07-2022 Daily Progress [...] noted. Objective Data: Objective Information: T PRBPMAPSpO2 [id number]/016507% Date/Time02/07 4: 7: 7: 7: 7: 7:00 [...] for the last 24 hours are: IntakeOutputNet [id number] Physical Exam Narrative: Physical Exam: General: in [...] h range: ( 7.26 - 7.45 ) [id number] 24 h range: ( 46 - 68 [...] Updated: 07-Feb-2022 07:33 by Andre Mota) Normal [facility] GLUCOSE-POCTon 02-07-2022 Glucose [Mass/Vol] 124 mg/dL High 74 - 99 [facility] Comment on above: Performed By: #### G STEFANI ####[facility] [place] [address] MAGNESIUMon 02-07-2022 Magnesium [Mass/Vol] 1.98 mg/dL Normal 1.60 - 2.40 [facility] Comment on above: Performed By: #### M G ####[address] [address] RENAL FUNCTION PANELon 02-07 Albumin [Mass/Vol] 3.7 g/dL Normal 3.4 - 5.0 [facility] Comment on above: Performed By: #### R ENAL #### [address] [address] Anion gap [Moles/Vol] 14 mmol/L Normal 10 - 20 [facility] Comment on above: Performed By: #### R ENAL #### [address] [address] Calcium [Mass/Vol] 8.4 mg/dL Low 8.6 - 10.3 [facility] Comment on above: Performed By: #### R ENAL #### [address] [address] Chloride [Moles/Vol] 107 mmol/L Normal 98 - 107 [facility] Comment on above: Performed By: #### R ENAL #### [address] [address] Creatinine [Mass/Vol] 1.57 mg/dL High 0.50 - 1.30 [facility] Comment on above: Performed By: #### R ENAL #### [address] [address] GFR/1.73 sq M.predicted among non-blacks MDRD (S/P/Bld) [Vol rate/Area] 51 mL/min/{1.73_m2} Abnormal >90 [facility] Comment on above: Result Comment: CALC ULATIONS OF ESTIMATED GFR ARE PERFORMED USING THE 2020 CKD-EPI STUDY REFIT EQUATION WITHOUT THE RACE VARIABLE FOR THE IDMS-TRACEABLE CREATININE METHODS. https://jasn.asnjournals.org/content//ASN.2020 599608 Performed By: #### R ENAL #### [address] [place] [address] Glucose [Mass/Vol] 115 mg/dL High 74 - 99 [facility] Comment on above: Performed By: #### R ENAL #### [address] [place] [address] HCO3 (Bld) [Moles/Vol] 29 mmol/L Normal 21 - 32 [facility] Comment on above: Performed By: #### R ENAL #### [address] [address] Phosphate [Mass/Vol] 6.1 mg/dL High 2.5 - 4.9 [facility] Comment on above: Result Comment: The performance characteristics of phosphorus testing in heparinized plasma have been validated by the individual laboratory site where testing is performed. Testing on heparinized plasma is not approved by the FDA; however, such approval is not necessary. Performed By: #### R ENAL #### [address] [address] Potassium [Moles/Vol] 4.6 mmol/L Normal 3.5 - 5.3 [facility] Comment on above: Performed By: #### R ENAL #### [address] [address] Sodium [Moles/Vol] 145 mmol/L Normal 136 - 145 [facility] Comment on above: Performed By: #### R ENAL #### [address] [address] Urea nitrogen [Mass/Vol] 25 mg/dL High 6 - 23 [facility] Comment on above: Performed By: #### R ENAL #### [address] [address] ABO/RH GROUP TESTon 02-07-20 22 ABO TYPE Canceled Normal [facility] Comment on above: Order Comment: TEST ABO/RH GROUP TEST WAS CANCELLED, 02/06/2022 15:57 not needed. Performed By: #### C BC #### [address] [address] RH TYPE Canceled Normal [facility] Comment on above: Order Comment: TEST ABO/RH GROUP TEST WAS CANCELLED, 02/06/2022 15:57 not needed. Performed By: #### C BC #### [address] [address] ARTERIAL FULL PANELon 2021 LANRE'S TEST[COLLATERAL CIRCULATION] N/A Normal [facility] Comment on above: Order Comment: 4 LPM NC Performed By: #### A FPA4 #### [address] [address] Anion gap [Moles/Vol] 10 mmol/L Normal 10 - 25 [facility] Comment on above: Order Comment: 4 LPM NC Performed By: #### A FPA4 #### [address] [address] BASE EXCESS-BLOOD 1.4 mmol/L Normal -2.0 - 3.0 [facility] Comment on above: Order Comment: 4 LPM NC Performed By: #### A FPA4 #### [address] [address] BICARB, CALCULATED 30.5 mmol/L High 22.0 - 26.0 [facility] Comment on above: Order Comment: 4 LPM NC Performed By: #### A FPA4 #### [address] [address] CALCIUM,IONIZED 1.17 mmol/L Normal 1.10 - 1.33 [facility] Comment on above: Order Comment: 4 LPM NC Performed By: #### A FPA4 #### [address] [address] Chloride [Moles/Vol] 105 mmol/L Normal 98 - 107 [facility] Comment on above: Order Comment: 4 LPM NC Performed By: #### A FPA4 #### [address] [address] Glucose [Mass/Vol] 142 mg/dL High 74 - 99 [facility] Comment on above: Order Comment: 4 LPM NC Performed By: #### A FPA4 #### [address] [address] Hematocrit (Bld) [Volume fraction] 43.0 % Normal 41.0 - 52.0 [facility] Comment on above: Order Comment: 4 LPM NC Performed By: #### A FPA4 #### [address] [address] Hemoglobin (Bld) [Mass/Vol] 14.3 g/dL Normal 13.5 - 17.5 [facility] Comment on above: Order Comment: 4 LPM NC Performed By: #### A FPA4 #### [address] [address] Lactate [Moles/Vol] 1.0 mmol/L Normal 0.4 - 2.0 [facility] Comment on above: Order Comment: 4 LPM NC Performed By: #### A FPA4 #### [address] [address] OXY HGB 84.3 % Low 94.0 - 98.0 [facility] Comment on above: Order Comment: 4 LPM NC Performed By: #### A FPA4 #### [address] [address] Oxygen (Bld) [Partial pressure] 60 mm[Hg] Low 85 - 95 [facility] Comment on above: Order Comment: 4 LPM NC Performed By: #### A FPA4 #### [address] [address] PATIENT TEMPERATURE 37.0 degrees C Normal [facility] Comment on above: Order Comment: 4 LPM NC Result Comment: NOTE : PATIENT RESULTS ARE NOT CORRECTED FOR TEMPERATURE. Performed By: #### A FPA4 #### [address] [address] PCO2 68 mmHg High 38 - 42 [facility] Comment on above: Order Comment: 4 LPM NC Performed By: #### A FPA4 #### [address] [address] pH (Bld) 7.26 [pH] Low 7.38 - 7.42 [facility] Comment on above: Order Comment: 4 LPM NC Performed By: #### A FPA4 #### [address] [place] [address] Potassium [Moles/Vol] 4.0 mmol/L Normal 3.5 - 5.3 [facility] Comment on above: Order Comment: 4 LPM NC Performed By: #### A FPA4 #### [address] [place] [address] SO2 87 % Low 94 - 100 [facility] Comment on above: Order Comment: 4 LPM NC Performed By: #### A FPA4 #### [address] [address] Sodium [Moles/Vol] 141 mmol/L Normal 136 - 145 [facility] Comment on above: Order Comment: 4 LPM NC Performed By: #### A FPA4 #### [address] [place] [address] Anion gap [Moles/Vol] 6 mmol/L Low 10 - 25 [facility] Comment on above: Performed By: #### A FPA4 ####[address] [address] BASE EXCESS-BLOOD 6.9 mmol/L High -2.0 - 3.0 [facility] Comment on above: Performed By: #### A FPA4 ####[address] [address] BICARB, CALCULATED 32.0 mmol/L High 22.0 - 26.0 [facility] Comment on above: Performed By: #### A FPA4 ####[address] [address] CALCIUM,IONIZED 1.16 mmol/L Normal 1.10 - 1.33 [facility] Comment on above: Performed By: #### A FPA4 ####[address] [address] Chloride [Moles/Vol] 106 mmol/L Normal 98 - 107 [facility] Comment on above: Performed By: #### A FPA4 ####[address] [address] Glucose [Mass/Vol] 146 mg/dL High 74 - 99 [facility] Comment on above: Performed By: #### A FPA4 ####[address] [address] Hematocrit (Bld) [Volume fraction] 42.0 % Normal 41.0 - 52.0 [facility] Comment on above: Performed By: #### A FPA4 ####[address] [address] Hemoglobin (Bld) [Mass/Vol] 14.1 g/dL Normal 13.5 - 17.5 [facility] Comment on above: Performed By: #### A FPA4 ####[address] [address] Lactate [Moles/Vol] 1.2 mmol/L Normal 0.4 - 2.0 [facility] Comment on above: Performed By: #### A FPA4 ####[address] [address] OXY HGB 95.3 % Normal 94.0 - 98.0 [facility] Comment on above: Performed By: #### A FPA4 ####[address] [address] Oxygen (Bld) [Partial pressure] 84 mm[Hg] Low 85 - 95 [facility] Comment on above: Performed By: #### A FPA4 ####[address] [address] PATIENT TEMPERATURE 37.0 degrees C Normal [facility] Comment on above: Result Comment: NOTE : PATIENT RESULTS ARE NOT CORRECTED FOR TEMPERATURE. Performed By: #### A FPA4 ####[address] [address] PCO2 46 mmHg High 38 - 42 [facility] Comment on above: Performed By: #### A FPA4 ####[address] [address] pH (Bld) 7.45 [pH] High 7.38 - 7.42 [facility] Comment on above: Performed By: #### A FPA4 ####[facility] [place] [address] [place] [address] Potassium [Moles/Vol] 3.4 mmol/L Low 3.5 - 5.3 [facility] Comment on above: Performed By: #### A FPA4 ####[facility] [place] [address] [place] [address] SO2 98 % Normal 94 - 100 [facility] Comment on above: Performed By: #### A FPA4 ####[address] [place] [address] Sodium [Moles/Vol] 141 mmol/L Normal 136 - 145 [facility] Comment on above: Performed By: #### A FPA4 ####[address] [place] [address] CBCon 02-06-2022 Erythrocyte distribution width (RBC) [Ratio] 19.0 % High 11.5 - 14.5 [facility] Comment on above: Performed By: #### C BC #### [address] [place] [address] Hematocrit (Bld) [Volume fraction] 42.4 % Normal 41.0 - 52.0 [facility] Comment on above: Performed By: #### C BC #### [address] [place] [address] Hemoglobin (Bld) [Mass/Vol] 13.5 g/dL Normal 13.5 - 17.5 [facility] Comment on above: Performed By: #### C BC #### [address] [place] [address] MCHC (RBC) [Mass/Vol] 31.8 g/dL Low 32.0 - 36.0 [facility] Comment on above: Performed By: #### C BC #### [address] [place] [address] MCV (RBC) [Entitic vol] 99 fL Normal 80 - 100 [facility] Comment on above: Performed By: #### C BC #### [address] [place] [address] NUCLEATED RBC 0.6 /100 WBC Normal 0.0 - 0.0 [facility] Comment on above: Performed By: #### C BC #### [address] [address] Platelets (Bld) [#/Vol] 137 10*3/uL Low 150 - 450 [facility] Comment on above: Performed By: #### C BC #### [address] [address] RBC 4.29 x10E12/L Low 4.50 - 5.90 [facility] Comment on above: Performed By: #### C BC #### [address] [address] WBC (Bld) [#/Vol] 6.9 10*3/uL Normal 4.4 - 11.3 [facility] Comment on above: Performed By: #### C BC #### [address] [address] Clinical Intervention - Ginna etienne 02-06-2022 Clinical Intervention - Pharmacy Pharmacist's Clinical Intervention: Is this intervention medication reconciliation related: yes, History Electronic Signatures: Andrés Bañuelos ([employer]) (Signed 06-Feb-2022 18:53) Authored: Pharmacist's Clinical Intervention Last Updated: 06-Feb-2022 18:53 by Andrés Bañuelos ([employer]) [facility] Consult-Critical Careon 12-0 Consult-Critical Care Service: Service: [...] MAP >70 (more content not included)... Normal [facility] Discharge [id number] Discharge Profile2 Discharge Orders: Anticipated Discharge Date: Anticipated Discharge [id number] Problem List: Admitting Dx: Renal cell carcinoma: [...] WORRISOME - NOTIFY YOUR PHYSICIAN OR RESIDENT MEDICAL VAN DRIVER. - Fever greater than 101 F or 38.3 C, chills, nausea, vomiting, or feeling ill. - Inability to urinate. - Drainage of foul smelling fluid (pus) from the incision or drain sites. - Excruciating pain that is not controlled by prescription or [id number] medications. - You were sent home on [...] appointments, please call our Main Office at [phone]. Provider FINAL REVIEW of Orders: Final Review: Final Review of Medication Reconciliation and Orders Completedby Physician Reviewing ProviderClau Diallo MD (Resident) at 06-Feb-2022 13:52:19 Appointments: Follow-Up Appointment 01: Physician/Dept/ServiceDr. Hernandez Reason for Referralpost op follow up Call to Schedule in2 weeks Phone [phone] CommentsPlease call to schedule appointment Follow-Up Appointment 02: Physician[facility]Dept/ServicePrt[facility] Reason for ReferralHospital follow up - blood pressure Call to Schedule in2-3 days CommentsPlease call to schedule Electronic Signatures: Gini Escalante ([facility] (Signed 10-Feb-2022 11:42) Authored: Discharge Orders, Appointments Clau Diallo ( (Resident)) (Signed 06-Feb-2022 13:52) Authored: Discharge Orders, Urology, Provider FINAL REVIEW of Orders, Gold Form - Blade Groover Summary Last Updated: 10-Feb-2022 11:42 by Gini Escalante ([facility]) Normal [facility] GLUCOSE-POCTon 02-06-2022 Glucose [Mass/Vol] 133 mg/dL High 74 - 99 [facility] Comment on above: Performed By: #### G STEFANI #### [facility] [address] [address] [facility] [address] Order Reconciliationon 02-06 Order Reconciliation Page 1 Discharge Reconciliation Document Reconciliation Type: Discharge requested on behalf of Gini Escalante (Advanced Practice Nurse) done by Gini Escalante ([facility]) Discharge - Reconciliation: 06-Feb-2022 13:48 by: Clau Diallo ( (Resident)) Discharge - Reset to Incomplete: 09-Feb-2022 12:41 by: Gini Escalante ([facility]) Discharge - Partial Reconciliation: 09-Feb-2022 12:42 by: Gini Escalante ([facility]) Discharge - Partial Reconciliation: 10-Feb-2022 11:06 by: Luís Siegel (Resident)) Discharge - Partial Reconciliation: 10-Feb-2022 11:17 by: Luís Siegel (DO (Resident)) Discharge - Reconciliation: 10-Feb-2022 11:21 by: Gini Escalante ([facility]) Home Medications EnteredHOME MEDICATIONS AT DISCHARGE [...] not requir (more content not included)... Normal [facility] Order Reconciliation Page 1 Admission Reconciliation Document Reconciliation Type: Admission from OR requested on behalf of Clau Diallo (Resident) done by Clau Diallo ( (Resident)) Admission from OR - Reconciliation: 06-Feb-2022 13:42 by: Clau Diallo ( (Resident)) Home MedicationsEnteredLast Dose TakenReconciled with current Order Reconciliation Comment/ Additional Information Cabometyx 20 mg oral tablet 1 tab(s) orally once a [id number] AM Reviewed and Held carvedilol 6.25 mg oral tablet 1 tab(s) orally once a [id number]-Feb-2022 AM Carvedilol - PEDS Tablet (COREG)DOSE = 6.25 mg Oral DailyCa.0543 mg/Kg/DOSE x 115 Kg = 6.25 mg/Dose (Daily Total is 6.25 mg) Weight type: Med Calc Weightcarvedilol 6.25 mg oral tablet continued as the inpatient order Carvedilol - PEDS cyclobenzaprine 10 mg oral tablet 1 tab(s) orally 3 times a [id number]-Feb-2022 AM Cyclobenzaprine Tablet (FLEXERIL)DOSE = 10 mg Oral 3 Times a Daycyclobenzaprine 10 mg oral tablet continued as the inpatient order Cyclobenzaprine ibuprofen 800 mg oral tablet 1 tab(s) orally 3 times a day, As Needed 2021 Reviewed and Held lovastatin 10 mg oral tablet 1 tab(s) orally once a [id number] Atorvastatin Tablet (LIPITOR)DOSE = 10 mg Oral At Bedtimelovastatin 10 mg oral tablet continued as the inpatient order Atorvastatin pantoprazole 40 mg oral delayed release tablet 1 tab(s) orally once a day [id number] Pantoprazole Enteric Coated Tablet (PROTONIX)DOSE = 40 mg Oral Dailypantoprazole 40 mg oral delayed release tablet continued as the inpatient order Pantoprazole spironolactone 25 mg oral tablet 1 tab(s) orally once a [id number]-[id number]-Feb-2022 AM Spironolactone Tablet (ALDACTONE)DOSE = 25 mg Oral Daily spironolactone 25 mg oral tablet continued as the inpatient order Spironolactone warfarin 5 mg oral tablet 1 tab(s) orally once a [id number] Reviewed and Held Additional Current Orders Acetaminophen [...] micrograms r (more content not included)... Normal [facility] PT/INRon 02-06-2022 PT Coag (PPP) [Time] 14.3 s High 9.8 - 13.4 [facility] Comment on above: Performed By: #### P TINR ####[facility] [place] [address] PT, INR 1.2 High 0.9 - 1.1 [facility] Comment on above: Performed By: #### P TINR ####[facility] [facility] [place] [address] Patient Profile - Preop v3on 02-06-2022 Patient Profile - Preop v3 Patient Profile - Preop: Initial Info: Patient DemographicsName: YEFRI YANEZ Date: 1965 Address: [facility] [address], [facility] Primary Phone [phone] Instructions Givenanticoagulant meds - patient advised to consult ordering provider, appropriate clothing, bring glasses/contacts case, bring list of medications, center location, diabetes meds - patient advised to consult ordering provider, insurance information, remove jewerly/piercings How to be AddressedTHOMAS Spoken Language PreferredEnglish Source of Informationpatient Stated Reason for AdmissionREMOVAL OF RIGHT KIDNEY Primary Contact Name and Numbersonya [phone] Limitations on Visitors/Phone Callsnone Medications Brought to Hospitalno General Health: Weight in kg115 kilogram(s) Weight in iik803.5 pound(s) Weight Methodstated Scale Typechair Height in feet5 feet Height in inch(es) Height in cm177.8 centimeter(s) Height Methodstated BMI (kg/m2)36.377 square meter Patient or Family Member Reaction to Anesthesianever had anesthesia Blood Avoidance/Restrictionsnon e Previous Transfusion Reactionnever had blood Health Mgmt: Symptoms/Conditions [place] [facility] [place] Barriers to Managing Healthnone Relationship/Environ: Lives Withspouse Living Arrangementshouse Resource/Environmental Concernsnone Anticipated Transition [employer] [facility]tic[facility]ated at [facility] Tobacco Use: Tobacco Useyes Last Tobacco [id number] Tobacco CommentCIGARS, VAPING Pre-op Checklist: Arrival [id number] Arrival Time10:02 Procedure TypeRT LAPAROSCOPIC NEPHRECTOMY NPOyes Last Food [id number] 19:30 Last Clear Fluid [id number] 06:30 ID Band On Patientpatient ID (name), [...] 06-Feb-2022 10:06 by Ivette Elizondo (JOHN) Normal [facility] RENAL FUNCTION PANELon 02-06 Albumin [Mass/Vol] 3.8 g/dL Normal 3.4 - 5.0 [facility] Comment on above: Performed By: #### C BC #### [address] [address] Anion gap [Moles/Vol] 10 mmol/L Normal 10 - 20 [facility] Comment on above: Performed By: #### C BC #### [address] [address] Calcium [Mass/Vol] 8.6 mg/dL Normal 8.6 - 10.3 [facility] Comment on above: Performed By: #### C BC #### [address] [address] Chloride [Moles/Vol] 106 mmol/L Normal 98 - 107 [facility] Comment on above: Performed By: #### C BC #### [address] [address] Creatinine [Mass/Vol] 1.38 mg/dL High 0.50 - 1.30 [facility] Comment on above: Performed By: #### C BC #### [address] [address] GFR/1.73 sq M.predicted among non-blacks MDRD (S/P/Bld) [Vol rate/Area] 59 mL/min/{1.73_m2} Abnormal >90 [facility] Comment on above: Result Comment: CALC ULATIONS OF ESTIMATED GFR ARE PERFORMED USING THE 2020 CKD-EPI STUDY REFIT EQUATION WITHOUT THE RACE VARIABLE FOR THE IDMS-TRACEABLE CREATININE METHODS. https://jasn.asnjournals.org/content/early//ASN.2020 143048 Performed By: #### C BC #### [address] [address] Glucose [Mass/Vol] 138 mg/dL High 74 - 99 [facility] Comment on above: Performed By: #### C BC #### [address] [address] HCO3 (Bld) [Moles/Vol] 31 mmol/L Normal 21 - 32 [facility] Comment on above: Performed By: #### C BC #### [address] [address] Phosphate [Mass/Vol] 4.9 mg/dL Normal 2.5 - 4.9 [facility] Comment on above: Result Comment: The performance characteristics of phosphorus testing in heparinized plasma have been validated by the individual laboratory site where testing is performed. Testing on heparinized plasma is not approved by the FDA; however, such approval is not necessary. Performed By: #### C BC #### [address] [address] Potassium [Moles/Vol] 4.0 mmol/L Normal 3.5 - 5.3 [facility] Comment on above: Performed By: #### C BC #### [address] [address] Sodium [Moles/Vol] 143 mmol/L Normal 136 - 145 [facility] Comment on above: Performed By: #### C BC #### [address] [address] Urea nitrogen [Mass/Vol] 23 mg/dL Normal 6 - 23 [facility] Comment on above: Performed By: #### C BC #### [address] [place] [address] TYPE + SCREENon 02-06-2022 ABO TYPE O Normal [facility] Comment on above: Performed By: #### T +S #### [address] [place] [address] RH TYPE Positive Normal [facility] Comment on above: Performed By: #### T +S #### [address] [place] [address] [facility] Surgical Pathology Depar tmenton 02-06-2022 [facility] Surgical Pathology Department Name YEFRI YANEZ Pathologist: CYNTHIA LOPEZ MD Date of Procedure: 02/06/2022 Date Received: 02/06/2022 Date Reported 02/19/2022 Submitting Physician: ARAVIND HERNANDEZ MD Location: [address] External # FINAL DIAGNOSIS A. KIDNEY, [...] glomerulosclerosis Vascular disease: Mild to moderate arteriosclerosis [employer] Blocks: Normal Block: A8 Tumor Block: A3 Electronically Signed Out By CYNTHIA LOPEZ MD/KOKO By the signature on this report, the individual or group listed as making the Final Interpretation/Diagnosis certifies that they have reviewed this case. Diagnostic interpretation performed at [facility] [address] [address] [place] [id number] Clinical History: renal cell carcinoma Specimens Submitted [...] nodes are found. Photographs have been taken. [employer] Captain sections are submitted in 8 cassettes. WXK/DJO Summary of Cassettes: Specimen Label Site A 1 ureter margin 2 vascular margins 3-4 mass in relation to lurdes-renal fat (A3 with tumor deposit in lurdes-renal fat) 5-6 mass in relation to lurdes-hilar fat 7 tumor with adjacent kidney parenchyma 8 normal kidney parenchyma djo/02/10/2022 [facility] Department of Pathology [id number] [id number] Normal [facility] [place] Comment on above: Performed By: #### [facility] #### [facility] Surgical Pathology Department [address] [facility] [id number] CNPNon 02-05-2022 CNPN Normal [facility] CNPN Telephone (CARMOB) ----- YEFRI YANEZ ([id number]) 1965 M [facility] Date Time Provider Department 02/05/22 SAYRA TELLO During your visit today, we recorded the following information about you: Abbey Prescott Nash 02/05/2022 12:41 PM Signed Patient's Miya left a voicemail stating that she has questions about the patient's upcoming appointment with Dr. Tello. Please call her at [phone]. Florian Mello RN 02/09/2022 2:26 PM Signed [...] Fully Assessed Reason for Visit: Patient Question [[id number]] Prescriptions as of 02/17/2022 - torsemide (DEMADEX) [...] by this patient by: SPOUSE Safia Carr, [facility] Problem List As Of Date 02/05/2022 Noted [...] Encounter Status:Closed by FLORIAN MELLO on 02/17/22 [facility] CORONAVIRUS 2019, SCREEN ASY MPTOMATICon 02-04-2022 SARS-CoV-2 (COVID-19) RNA SANDOVAL+probe Ql (Unsp spec) Not detected Normal Not Detected [facility] Comment on above: Result Comment: . This assay is designed to detect the ORF1a/b and E genes of SARS-CoV-2 via nucleic acid amplification. A Not Detected result does not preclude 2019-nCoV infection since the adequacy of sample collection and/or low viral burden may result in presence of viral nucleic acids below the clinical sensitivity of this test method. Fact sheet for providers: https://www.fda.gov/media/621877/download Fact sheet for patients: https://www.fda.gov/media/570078/download This test has received [facility] Emergency Use Authorization (EUA) and has been verified for use by [facility] ([facility]). This test is only authorized for the duration of time that circumstances exist to justify the authorization of the emergency use of in vitro diagnostic tests for the detection of SARS-CoV-2 virus and/or diagnosis of COVID-19 infection under section 564(b)(1) of the Act, 21 U.S.C. 360bbb-3(b)(1), unless the authorization is terminated or revoked sooner. [facility] is certified under CLIA-88 as qualified to perform high complexity testing. Testing is performed in the [facility] laboratories located at [address] [place] [address]. Performed By: #### C OVSC #### [place] [address] Lab Specimen Source Nasal, Nasopharyngeal Normal [facility] Comment on above: Performed By: #### C OVSC #### [place] [address] Coronavirus 2019 RNA by PCR, Screening Asymptomticon 02-04-2022 Coronavirus 2019 RNA by PCR, Screening Asymptomtic Not detected Normal See Below UJ-Nxwmesf-J yamila SJW 400 DO Work Phone: Comment [...] this test method. Fact sheet for providers: https://www.fda.gov/media/051776/download Fact sheet for patients: https://www.fda.gov/media/327324/download This test has received FDA Emergency Use Authorization (EUA) and has been verified for use by [facility] ([facility]). This test is only authorized for the duration of time that circumstances exist to justify the authorization of the emergency use of in vitro diagnostic tests for the detection of SARS-CoV-2 virus and/or diagnosis of COVID-19 infection under section 564(b)(1) of the Act, 21 U.S.C. 360bbb-3(b)(1), unless the authorization is terminated or revoked sooner.[facility] is certified under CLIA-88 as qualified to perform high complexity testing. Testing is performed in the [facility] laboratories located at [address] [place] [address]. Covid 19 Resultson 2 SARS-CoV-2 (COVID-19) RNA [...] You may also be contacted by the [facility] to see if any of your close [...] or Naproxen (Aleve) can also be used. Bvpt-wlu-lwxbbfv cough and cold medicines can be used according to the instructions on the package. Some oizn-icy-xprtigl medicines also contain acetaminophen. Make sure you [...] water are not available, use alcohol-based hand senior project architect. Avoid touching your eyes, nose, and mouth [...] 24 felisa (more content not included)... Normal [facility] Chart Updateon 02-03-2022 Chart Update Chart Update [...] between urology, medical oncology, radiation oncology at [facility] was local therapy to metastatic sites and cytoreductive nephrectomy. 12/08/2021-echo with EF 35%, LV and RV enlargement and hypokinesis 12/26/2021-patient completed radiation to chest wall and L4 lesion Patient has remained on cabo Patient was scheduled for nephrectomy with Dr. Adriana Hodge, due to insurance issues patient could not be operated on at [facility], referred to me for nephrectomy. 01/19/2022-patient scheduled for laparoscopic nephrectomy 02/0301/20/2022-patient presented to [facility] with shortness of breath 01/27/2022-patient presented to [facility] with persistence of subjective dyspnea, expiratory wheezing 01/29/2022-patient represented to [facility] with chest tightness and shortness of [...] with radiation therapy. Plan previously developed at [facility] was 4 local treatment to masses followed [...] Feb 03 2022 8:52AM EST (Author) Normal [employer] Absolute lymphocyte countOrd ered By: Dr. Bass on 01-29-2022 Lymphocytes Auto (Unsp spec) [#/Vol] 0.78 10*3/uL 0.83-4.51 [facility] Basophil percentageOrdered B y: Dr. Bass on 01-29-2022 Basophils/100 WBC (Bld) 0.3 % 0-1 [facility] Chloride [Moles/Vol] 102 mmol/L 98-107 [facility] Eosinophils/100 WBC (Bld) 0.1 % 0-5 [facility] Glucose [Mass/Vol] 148 mg/dL 74-106 [facility] Comment on above: Fasting Glucose resu lt greater than or equal to 126 mg/dL suggests DIABETES MELLITUS per A.D.A. criteria. Neutrophils (Bld) [#/Vol] 8.6 10*3/uL 2.0-7.7 [facility] Neutrophils/100 WBC (Bld) 85.8 % 47-70 [facility] Potassium [Moles/Vol] 3.5 mmol/L 3.5-5.1 [facility] Comment on above: Slight Hemolysis, Re sult may be falsely increased. Sodium [Moles/Vol] 142 mmol/L 136-145 [facility] WBC (Bld) [#/Vol] 10.0 10*3/uL 4.4-11.0 [facility] Blood erythrocytes count (nu mber/volume)Ordered By: Dr. Bass on 01-29-2022 RBC (Bld) [#/Vol] 4.81 10*6/uL 4.6-6.2 [facility] Blood hemoglobin measurement (mass/volume)Ordered By: Dr. Bass on 01-29-2022 Hemoglobin (Bld) [Mass/Vol] 15.0 g/dL 13.0-16.5 [facility] Blood lymphocytes/100 leukoc ytesOrdered By: Dr. Bass on 01-29-2022 Lymphocytes/100 WBC (Bld) 7.8 % 19-41 [facility] Blood monocytes/100 leukocyt esOrdered By: Dr. Bass on 01-29-2022 Monocytes/100 WBC (Bld) 4.3 % 0-10 [facility] Blood platelet mean volumeOr dered By: Dr. Bass on 01-29-2022 Platelet mean volume (Bld) [Entitic vol] 10.9 fL 6.2-12.0 [facility] Determination of erythrocyte mean corpuscular volume (MCV)Ordered By: Dr. Bass on 01-29-2022 MCV (RBC) [Entitic vol] 94.2 fL 80-94 [facility] Hematocrit Auto (Bld) [Volum e fraction]Ordered By: Dr. Bass on 01-29-2022 Hematocrit (Bld) [Volume fraction] 45.3 % 40-54 [facility] INR in Blood by Coagulation assayOrdered By: Dr. Bass on 01-29-2022 INR Coag (Bld) [Relative time] 1.2 {INR} [facility] Influenza virus A and B and SARS-CoV-2 (COVID-19) Ag panel - Upper respiratory specimOrdered By: Dr. Bass on 01-29-2022 SARS-CoV-2 (COVID-19) RNA SANDOVAL+probe Ql (Resp) [facility] Laboratory - Chemistry and C hemistry - challengeOrdered By: Dr. Bass on 01-29-2022 CO2 [Moles/Vol] 36.0 mmol/L 21.0-32.0 [facility] Natriuretic peptide B (Bld) [Mass/Vol] 378.8 pg/mL 0-100 [facility] Urea nitrogen/Creatinine [Mass ratio] 17.4 mg/mg 10-20 [facility] Laboratory - CoagulationOrde red By: Dr. Bass on 01-29-2022 PT Coag (PPP) [Time] 15.3 s 11.7-14.9 [facility] Laboratory - Hematology and Cell countsOrdered By: Dr. Bass on 01-29-2022 Erythrocyte distribution width (RBC) [Entitic vol] 55.1 fL 35.1-43.9 [facility] Erythrocyte distribution width (RBC) [Ratio] 16.4 % 11.6-14.6 [facility] Immature granulocytes/100 WBC (Bld) 1.700 % 0.0-0.9 [facility] Comment on above: IG% - Immature Granu locytes (promyelocytes, myelocytes and metamyelocytes) > 1% indicates that a LEFT SHIFT is Present. MCH (RBC) [Entitic mass] 31.2 pg 27.0-32.0 [facility] Nucleated RBC/100 WBC (Bld) [Ratio] 1.2 % 0-5 [facility] MCHC Auto (RBC) [Mass/Vol]Or dered By: Dr. Bass on 01-29-2022 MCHC (RBC) [Mass/Vol] 33.1 g/dL 32-36 [facility] No Panel InformationOrdered By: Dr. Bass on 01-29-2022 Estimated Creatinine Clearance Calc 76.27 ml/min [facility] Estimated GFR (MDRD) Amer 89 mL/min >60 [facility] Comment on above: GFR Calc Estimated GFR (MDRD) Non-Af Amer 74 mL/min >60 [facility] Comment on above: Non- GFR Calc Troponin I High Sensitivity 69 pg/mL 3.0-78.0 [facility] Comment on above: Please Note: New [place] t Units and Gender Specific Reference Ranges. For more information see Policy Stat Procedure [place] High Sensitivity Troponin (TNIH) and attachments. Platelets bldOrdered By: Dr. Bass on 01-29-2022 Platelets (Bld) [#/Vol] 166 10*3/uL 150-450 [facility] Serum or plasma calcium cory urement (mass/volume)Ordered By: Dr. Bass on 01-29-2022 Calcium [Mass/Vol] 9.0 mg/dL 8.5-10.1 [facility] Serum or plasma creatinine m easurement (mass/volume)Ordered By: Dr. Bass on 01-29-2022 Creatinine [Mass/Vol] 1.09 mg/dL 0.70-1.30 [facility] Comment on above: The validity of the calculated GFR & GFRAA in patients over 70 years has not been determined. Clinical correlation is essential. Serum or plasma urea nitroge n measurement (mass/volume)Ordered By: Dr. Bass on 01-29-2022 Urea nitrogen [Mass/Vol] 19 mg/dL 7-18 [facility] Thin prep Papanicolaou smear with manual screeningOrdered By: Dr. Bass on 01-29-2022 Thin prep Papanicolaou smear with manual screening 4 5-15 [facility] Cult, Urineon 01-27-2022 Bacteria identified Cx Nom (U) IH-Rvfjzgw-G [employer] [address] DO Work Phone: Laboratory - Blood bankon ABO group Nom (Bld) O MP-Ur ology-W [employer] [address] DO Work Phone: Blood group antibody screen Ql Negative LV-Yjpksix-A [employer] [address] DO Work Phone: Rh immune globulin screen (Bld) [Interp] Positive MP-Urology -W [employer] 400 DO Work Phone: TYPE + SCREENon 01-27-2022 ABO TYPE O Normal [facility] Comment on above: Performed By: #### C BC #### [address] [place] [address] RH TYPE Positive Normal [facility] Comment on above: Performed By: #### C BC #### [address] [place] [address] URINE CULTURE,BACTERIALon URINE CULTURE,BACTERIAL PATIENT: YEFRI BREEN LOCATION: [facility]#: [id number] : 63 AGE: SEX: M ORDERED BY: ARAVIND HERNANDEZ SOURCE: URINE COLLECTED: 01/27/22 11:26 ANTIBIOTICS AT JASMIN.: RECEIVED : 01/27/22 19:27 SITE: R E S U L T S URINE CULTURE,BACTERIAL FINAL 01/28/22 12:54 NO SIGNIFICANT GROWTH. Normal [facility] Comment on above: Performed By: #### C BC #### [address] [address] CNPTOUTREACHon 01-23-2022 CNPTOUTREACH Normal [facility] Absolute lymphocyte countOrd ered By: Dr. Carvajal on 01-20-2022 Lymphocytes Auto (Unsp spec) [#/Vol] 1.04 10*3/uL 0.83-4.51 [facility] Basophil percentageOrdered B y: Dr. Carvajal on 01-20-2022 Basophils/100 WBC (Bld) 0.4 % 0-[address] [facility] Chloride [Moles/Vol] 104 mmol/L 98-107 [facility] Eosinophils/100 WBC (Bld) 1.3 % 0-5 [facility] Glucose [Mass/Vol] 113 mg/dL 74-106 [facility] Comment on above: Fasting Glucose resu lt from 100 to 125 mg/dL suggests IMPAIRED HOMEOSTASIS per A.D.A. criteria. Neutrophils (Bld) [#/Vol] 3.0 10*3/uL 2.0-7.7 [facility] Neutrophils/100 WBC (Bld) 66.2 % 47-70 [facility] Potassium [Moles/Vol] 3.5 mmol/L 3.5-5.1 [facility] Comment on above: Moderate Hemolysis, Result may be falsely increased. Sodium [Moles/Vol] 142 mmol/L 136-145 [facility] WBC (Bld) [#/Vol] 4.5 10*3/uL 4.4-11.0 [facility] Blood erythrocytes count (nu mber/volume)Ordered By: Dr. Carvajal on 01-20-2022 RBC (Bld) [#/Vol] 5.09 10*6/uL 4.6-6.2 [facility] Blood hemoglobin measurement (mass/volume)Ordered By: Dr. Carvajal on 01-20-2022 Hemoglobin (Bld) [Mass/Vol] 15.6 g/dL 13.0-16.5 [facility] Blood lymphocytes/100 leukoc ytesOrdered By: Dr. Carvajal on 01-20-2022 Lymphocytes/100 WBC (Bld) 23.2 % 19-41 [facility] Blood monocytes/100 leukocyt esOrdered By: Dr. Carvajal on 01-20-2022 Monocytes/100 WBC (Bld) 8.5 % 0-10 [facility] Blood platelet mean volumeOr dered By: Dr. Carvajal on 01-20-2022 Platelet mean volume (Bld) [Entitic vol] 10.2 fL 6.2-12.0 [facility] Determination of erythrocyte mean corpuscular volume (MCV)Ordered By: Dr. Carvajal on 01-20-2022 MCV (RBC) [Entitic vol] 91.2 fL 80-94 [facility] EKGon 01-20-2022 Atrial Rate 127 BPM [facility] Calculated R [place] 80 degrees [facility] Calculated T [place]olog[place] 77 degrees [facility] QRS Duration 102 ms [facility] QT Interval 366 ms [facility] QTC Calculation (Bazett) 459 ms [facility] Ventricular Rate 95 BPM [facility] Atrial fibrillation Abnormal ECG No previous ECGs available Confirmed by RAINER PRINGLE MD ([id number]) on 01/20/2022 8:35:54 AM [facility] CARDIOLOGY NAME : MIREYA YANEZ PID : [id number] : 1965 Gender : Male Race : ORD : Procedure Date : Jan 19 2022 11:29:03 Edit Date : Jan 20 2022 08:35:56 Diagnosis: Atrial fibrillation Abnormal ECG No previous ECGs available Confirmed by RAINER PRINGLE MD ([id number]) on 01/20/2022 8:35:54 AM Test Reason : RT Location : 18 : [facility] Overread By : RAINER PRINGLE MD Edited By : RAINER PRINGLE MD Referred By : KITTY VALDEZ Acquired by : MARCELINO CRAIN [facility] CARDIOLOGY [facility] Hematocrit Auto (Bld) [Volum e fraction]Ordered By: Dr. Carvajal on 01-20-2022 Hematocrit (Bld) [Volume fraction] 46.4 % 40-54 [facility] INR in Blood by Coagulation assayOrdered By: Dr. Carvajal on 01-20-2022 INR Coag (Bld) [Relative time] 1.5 {INR} [facility] Influenza virus A and B and SARS-CoV-2 (COVID-19) Ag panel - Upper respiratory specimOrdered By: Dr. Carvajal on 01-20-2022 SARS-CoV-2 (COVID-19) RNA SANDOVAL+probe Ql (Resp) [facility] Laboratory - Chemistry and C hemistry - challengeOrdered By: Dr. Carvajal on 01-20-2022 CO2 [Moles/Vol] 30.0 mmol/L 21.0-32.0 [facility] Natriuretic peptide B (Bld) [Mass/Vol] 272.4 pg/mL 0-100 [facility] Urea nitrogen/Creatinine [Mass ratio] 12.7 mg/mg 10-20 [facility] Laboratory - CoagulationOrde red By: Dr. Carvajal on 01-20-2022 PT Coag (PPP) [Time] 17.4 s 11.7-14.9 [facility] Laboratory - Hematology and Cell countsOrdered By: Dr. Carvajal on 01-20-2022 Erythrocyte distribution width (RBC) [Entitic vol] 52.1 fL 35.1-43.9 [facility] Erythrocyte distribution width (RBC) [Ratio] 15.9 % 11.6-14.6 [facility] Immature granulocytes/100 WBC (Bld) 0.400 % 0.0-0.9 [facility] Comment on above: IG% - Immature Granu locytes (promyelocytes, myelocytes and metamyelocytes) > 1% indicates that a LEFT SHIFT is Present. MCH (RBC) [Entitic mass] 30.6 pg 27.0-32.0 [facility] Nucleated RBC/100 WBC (Bld) [Ratio] 0 % 0-5 [facility] MCHC Auto (RBC) [Mass/Vol]Or dered By: Dr. Carvajal on 01-20-2022 MCHC (RBC) [Mass/Vol] 33.6 g/dL 32-36 [facility] No Panel InformationOrdered By: Dr. Carvajal on 01-20-2022 Estimated Creatinine Clearance Calc 75.58 ml/min [facility] Estimated GFR (MDRD) Amer 88 mL/min >60 [facility] Comment on above: GFR Calc Estimated GFR (MDRD) Non-Af Amer 73 mL/min >60 [facility] Comment on above: Non- GFR Calc Troponin I High Sensitivity 58 pg/mL 3.0-78.0 [facility] Comment on above: Please Note: New [place] t Units and Gender Specific Reference Ranges. For more information see Policy Stat Procedure [place] High Sensitivity Troponin (TNIH) and attachments. Platelets bldOrdered By: Dr. Carvajal on 01-20-2022 Platelets (Bld) [#/Vol] 180 10*3/uL 150-450 [facility] Serum or plasma calcium cory urement (mass/volume)Ordered By: Dr. Carvajal on 01-20-2022 Calcium [Mass/Vol] 8.8 mg/dL 8.5-10.1 [facility] Serum or plasma creatinine m easurement (mass/volume)Ordered By: Dr. Carvajal on 01-20-2022 Creatinine [Mass/Vol] 1.10 mg/dL 0.70-1.30 [facility] Comment on above: The validity of the calculated GFR & GFRAA in patients over 70 years has not been determined. Clinical correlation is essential. Serum or plasma urea nitroge n measurement (mass/volume)Ordered By: Dr. Carvajal on 01-20-2022 Urea nitrogen [Mass/Vol] 14 mg/dL 7-18 [facility] Thin prep Papanicolaou smear with manual screeningOrdered By: Dr. Carvajal on 01-20-2022 Thin prep Papanicolaou smear with manual screening 8 07-20 [facility] CNCOon 01-19-2022 CNCO Letter Text Normal [facility] EKGon 01-19-2022 Electrocardiogram Ventricular Rate : 9 5 BPM Atrial Rate : 127 BPM QRS Duration : 102 ms Q-T Interval : 366 ms QTC Calculation(Bazett) : 459 ms Calculated R [place] : 80 degrees Calculated T [place]olog[place] : 77 degrees Atrial fibrillation Abnormal ECG No previous ECGs available Confirmed by RAINER PRINGLE MD ([id number]) on 01/20/2022 8:35:54 AM NAME : YEFRI YANEZ PID : [id number] : 1965 Gender : Male Race : ORD : Procedure Date : Jan 19 2022 11:29:03 Edit Date : Jan 20 2022 08:35:56 Diagnosis: Atrial fibrillation Abnormal ECG No previous ECGs available Confirmed by RAINER PRINGLE MD ([id number]) on 01/20/2022 8:35:54 AM Test Reason : RT Location : 18 : [facility] Overread By : RAINER PRINGLE MD Edited By : RAINER PRINGLE MD Referred By : KITTY VALDEZ Acquired by : MARCELINO CRAIN [facility] XR CHEST 2V FRONTAL/LATon XR CHEST [...] Right chest wall mass is grossly stable. Credit Card Interviewer: DANITZA Transcribe Date/Time: Nov 14 2022 11:14A Dictated by : LUMA SHANKS MD This examination was interpreted and the report reviewed and electronically signed by: LUMA SHANKS MD on Jan 19 2022 11:15AM EST [id number] YEFRI YANEZ ([id number]) 1965 M [facility] Date Time Provider Department 12/25/21 MIKAL MORRIS During your visit today, we recorded the following information about you: Abbey Nash 12/25/2021 7:45 AM Signed Patient walked in to schedule an 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 Patient's insurance changed was seen at [facility] but now that location is out of [...] by this patient by: SPOUSE Safia Carr [facility] Problem List As Of Date 12/25/2021 Noted [...] Encounter Status:Closed by ADRIENNE BEACH on 12/25/21 [facility] Absolute lymphocyte counton 12-09-2021 Lymphocytes Auto (Unsp spec) [#/Vol] 1.42 10*3/uL 0.83-4.51 [facility] Work Phone: Basophil percentageon 2021 Basophil percentage 3.9 mg/dL 2.5-4.9 [facility] Work Phone: Basophils/100 WBC (Bld) 0.5 % 0-1 [facility] Work Phone: Chloride [Moles/Vol] 109 mmol/L 98-107 [facility] Work Phone: Eosinophils/100 WBC (Bld) 1.5 % 0-5 [facility] Work Phone: Glucose [Mass/Vol] 121 mg/dL 74-106 [facility] Work Phone: Comment on above: Fasting Glucose resu lt from 100 to 125 mg/dL suggests IMPAIRED HOMEOSTASIS per A.D.A. criteria. Neutrophils (Bld) [#/Vol] 4.0 10*3/uL 2.0-7.7 [facility] Work Phone: Neutrophils/100 WBC (Bld) 67.8 % 47-70 [facility] Work Phone: Potassium [Moles/Vol] 3.8 mmol/L 3.5-5.1 [facility] [facility] Work Phone: [phone] Sodium [Moles/Vol] 142 mmol/L 136-145 [facility] Work Phone: [phone] WBC (Bld) [#/Vol] 5.9 10*3/uL 4.4-11.0 [facility] Work Phone: Blood erythrocytes count (nu mber/volume)on 12-09-2021 RBC (Bld) [#/Vol] 5.22 10*6/uL 4.6-6.2 [facility] Work Phone: [phone] Blood hemoglobin measurement (mass/volume)on 12-09-2021 Hemoglobin (Bld) [Mass/Vol] 16.0 g/dL 13.0-16.5 [facility] Work Phone: Blood lymphocytes/100 leukoc yteson 12-09-2021 Lymphocytes/100 WBC (Bld) 24.1 % 19-41 [facility] Work Phone: Blood monocytes/100 leukocyt eson 12-09-2021 Monocytes/100 WBC (Bld) 5.8 % 0-10 [facility] Work Phone: [phone] Blood platelet mean volumeon 12-09-2021 Platelet mean volume (Bld) [Entitic vol] 11.1 fL 6.2-12.0 [facility] Work Phone: CNOVon 12-09-2021 CNOV Office Visit (MEMEC ) ----- YEFRI YANEZ ([id number]) 1965 M [facility] Date Time Provider Department 12/09/21 10:00 [...] acute dist (more content not included)... Normal [facility] Determination of erythrocyte mean corpuscular volume (MCV)on 12-09-2021 MCV (RBC) [Entitic vol] 90.6 fL 80-94 [facility] Work Phone: [phone] Hematocrit Auto (Bld) [Volum e fraction]on 12-09-2021 Hematocrit (Bld) [Volume fraction] 47.3 % 40-54 [facility] Work Phone: [phone] INR in Blood by Coagulation assayon 12-09-2021 INR Coag (Bld) [Relative time] 2.4 {INR} [facility] Work Phone: [phone] Laboratory - Chemistry and C hemistry - challengeon 12-09-2021 CO2 [Moles/Vol] 26.0 mmol/L 21.0-32.0 [facility] [facility] Work Phone: [phone] Magnesium [Mass/Vol] 1.9 mg/dL 1.6-2.6 [facility] Work Phone: [phone] Urea nitrogen/Creatinine [Mass ratio] 15.0 mg/mg 10-20 [facility] Work Phone: [phone] Laboratory - Coagulationon 1 PT Coag (PPP) [Time] 25.6 s 11.7-14.9 [facility] Work Phone: [phone] Laboratory - Hematology and Cell countson 12-09-2021 Erythrocyte distribution width (RBC) [Entitic vol] 54.5 fL 35.1-43.9 [facility] Work Phone: [phone] Erythrocyte distribution width (RBC) [Ratio] 16.5 % 11.6-14.6 [facility] Work Phone: [phone] Immature granulocytes/100 WBC (Bld) 0.300 % 0.0-0.9 [facility] Work Phone: [phone] Comment on above: IG% - Immature Granu locytes (promyelocytes, myelocytes and metamyelocytes) > 1% indicates that a LEFT SHIFT is Present. MCH (RBC) [Entitic mass] 30.7 pg 27.0-32.0 [facility] Work Phone: Nucleated RBC/100 WBC (Bld) [Ratio] 0 % 0-5 [facility] Work Phone: MCHC Auto (RBC) [Mass/Vol]on 12-09-2021 MCHC (RBC) [Mass/Vol] 33.8 g/dL 32-36 [facility] Work Phone: No Panel Informationon 12-09 Estimated Creatinine Clearance Calc 74.47 ml/min [facility] Work Phone: Estimated GFR (MDRD) Amer 86 mL/min >60 [facility] Work Phone: Comment on above: GFR Calc Estimated GFR (MDRD) Non-Af Amer 71 mL/min >60 [facility] Work Phone: Comment on above: Non- GFR Calc Platelets bldon 12-09-2021 Platelets (Bld) [#/Vol] 243 10*3/uL 150-450 [facility] Work Phone: Serum or plasma calcium cory urement (mass/volume)on 12-09-2021 Calcium [Mass/Vol] 9.0 mg/dL 8.5-10.1 [facility] Work Phone: Serum or plasma creatinine m easurement (mass/volume)on 12-09-2021 Creatinine [Mass/Vol] 1.13 mg/dL 0.70-1.30 [facility] Work Phone: Comment on above: The validity of the calculated GFR & GFRAA in patients over 70 years has not been determined. Clinical correlation is essential. Serum or plasma urea nitroge n measurement (mass/volume)on 12-09-2021 Urea nitrogen [Mass/Vol] 17 mg/dL 7-18 [facility] Work Phone: Telephone Encounteron 2021 [employer] Authentication Interface Message Text Patient unable to contact No voicemail to return call Invalid Number Letter sent CALI May [employer] Control Operators Supervisor [facility] [address] [place] [address] [place] [address] [email or web address] Normal [facility] Thin prep Papanicolaou smear with manual screeningon 12-09-2021 Thin prep Papanicolaou smear with manual screening 7 5-15 [facility] Work Phone: Absolute lymphocyte counton 12-07-2021 Lymphocytes Auto (Unsp spec) [#/Vol] 1.42 10*3/uL 0.83-4.51 [facility] Work Phone: Basophil percentageon 2021 Basophils/100 WBC (Bld) 0.5 % 0-1 [facility] Work Phone: Chloride [Moles/Vol] 108 mmol/L 98-107 [facility] Work Phone: Eosinophils/100 WBC (Bld) 0.7 % 0-5 [facility] Work Phone: Glucose [Mass/Vol] 135 mg/dL 74-106 [facility] Work Phone: Comment on above: Fasting Glucose resu lt greater than or equal to 126 mg/dL suggests DIABETES MELLITUS per A.D.A. criteria. Neutrophils (Bld) [#/Vol] 4.3 10*3/uL 2.0-7.7 [facility] Work Phone: Neutrophils/100 WBC (Bld) 70.8 % 47-70 [facility] Work Phone: Potassium [Moles/Vol] 3.5 mmol/L 3.5-5.1 [facility] Work Phone: Sodium [Moles/Vol] 142 mmol/L 136-145 [facility] Work Phone: WBC (Bld) [#/Vol] 6.1 10*3/uL 4.4-11.0 [facility] Work Phone: Blood erythrocytes count (nu mber/volume)on 12-07-2021 RBC (Bld) [#/Vol] 5.15 10*6/uL 4.6-6.2 [facility] Work Phone: Blood hemoglobin measurement (mass/volume)on 12-07-2021 Hemoglobin (Bld) [Mass/Vol] 16.0 g/dL 13.0-16.5 [facility] Work Phone: Blood lymphocytes/100 leukoc yteson 12-07-2021 Lymphocytes/100 WBC (Bld) 23.4 % 19-41 [facility] Work Phone: [phone] Blood monocytes/100 leukocyt eson 12-07-2021 Monocytes/100 WBC (Bld) 4.3 % 0-10 [facility] Work Phone: Blood platelet mean volumeon 12-07-2021 Platelet mean volume (Bld) [Entitic vol] 11.0 fL 6.2-12.0 [facility] Work Phone: Determination of erythrocyte mean corpuscular volume (MCV)on 12-07-2021 MCV (RBC) [Entitic vol] 90.5 fL 80-94 [facility] Work Phone: Hematocrit Auto (Bld) [Volum e fraction]on 12-07-2021 Hematocrit (Bld) [Volume fraction] 46.6 % 40-54 [facility] Work Phone: INR in Blood by Coagulation assayon 12-07-2021 INR Coag (Bld) [Relative time] 1.7 {INR} [facility] Work Phone: Laboratory - Chemistry and C hemistry - challengeon 12-07-2021 CO2 [Moles/Vol] 25.0 mmol/L 21.0-32.0 [facility] Work Phone: Natriuretic peptide B (Bld) [Mass/Vol] 686.4 pg/mL 0-100 [facility] Work Phone: Urea nitrogen/Creatinine [Mass ratio] 15.7 mg/mg 10-20 [facility] Work Phone: Laboratory - Coagulationon 1 PT Coag (PPP) [Time] 19.3 s 11.7-14.9 [facility] Work Phone: [phone] Laboratory - Hematology and Cell countson 12-07-2021 Erythrocyte distribution width (RBC) [Entitic vol] 54.9 fL 35.1-43.9 [facility] Work Phone: [phone] Erythrocyte distribution width (RBC) [Ratio] 16.5 % 11.6-14.6 [facility] Work Phone: [phone] Immature granulocytes/100 WBC (Bld) 0.300 % 0.0-0.9 [facility] Work Phone: [phone] Comment on above: IG% - Immature Granu locytes (promyelocytes, myelocytes and metamyelocytes) > 1% indicates that a LEFT SHIFT is Present. MCH (RBC) [Entitic mass] 31.1 pg 27.0-32.0 [facility] Work Phone: [phone] Nucleated RBC/100 WBC (Bld) [Ratio] 0 % 0-5 [facility] Work Phone: [phone] MCHC Auto (RBC) [Mass/Vol]on 12-07-2021 MCHC (RBC) [Mass/Vol] 34.3 g/dL 32-36 [facility] Work Phone: No Panel Informationon 12-07 Troponin I High Sensitivity 46 pg/mL 3.0-78.0 [facility] Work Phone: Comment on above: Please Note: New [place] t Units and Gender Specific Reference Ranges. For more information see Policy Stat Procedure [place] High Sensitivity Troponin (TNIH) and attachments. Estimated Creatinine Clearance Calc 66.26 ml/min [facility] Work Phone: [phone] Estimated GFR (MDRD) Amer 75 mL/min >60 [facility] Work Phone: [phone] Comment on above: GFR Calc Estimated GFR (MDRD) Non-Af Amer 62 mL/min >60 [facility] Work Phone: [phone] Comment on above: Non- GFR Calc Troponin I High Sensitivity 45 pg/mL 3.0-78.0 [facility] Work Phone: [phone] Comment on above: Please Note: New [place] t Units and Gender Specific Reference Ranges. For more information see Policy Stat Procedure [place] High Sensitivity Troponin (TNIH) and attachments. Platelets bldon 12-07-2021 Platelets (Bld) [#/Vol] 231 10*3/uL 150-450 [facility] Work Phone: Serum or plasma calcium cory urement (mass/volume)on 12-07-2021 Calcium [Mass/Vol] 9.6 mg/dL 8.5-10.1 [facility] Work Phone: Serum or plasma creatinine m easurement (mass/volume)on 12-07-2021 Creatinine [Mass/Vol] 1.27 mg/dL 0.70-1.30 [facility] Work Phone: Comment on above: The validity of the calculated GFR & GFRAA in patients over 70 years has not been determined. Clinical correlation is essential. Serum or plasma urea nitroge n measurement (mass/volume)on 12-07-2021 Urea nitrogen [Mass/Vol] 20 mg/dL 7-18 [facility] Work Phone: Thin prep Papanicolaou smear with manual screeningon 12-07-2021 Thin prep Papanicolaou smear with manual screening 9 5-15 [facility] Work Phone: [facility] Normal [facility] 11[facility]29-2021 [facility] Normal [facility] 11-24-2021 [facility] Telephone ([facility]) ----- YEFRI YANEZ ([id number]) 1965 [facility] Date Time Provider Department 11/24/21 AMERICA SCHWARTZ [facility] During your visit today, we [...] by this patient by: SPOUSE Safia Carr [facility] Problem List As Of Date 11/24/2021 Noted [...] Encounter Status:Closed by AMERICA SCHWARTZ on 11/25/21 [facility] CNPNon 11-23-2021 CNPN Normal [facility] CT ABD/PEL W IVCONon 022 CT ABD/PEL W IVCON Normal [facility] CT CHEST W IVCONon 2 CT CHEST W IVCON Normal [facility] No Panel Informationon 11-20 [facility] CNOVSPon 11-19-2021 CNOVSP Visit (SP) Office ([facility]) ----- YEFRI YANEZ ([id number]) 1965 M [facility] Date Time Provider Department 11/19/21 9:00 AM HAYLEE WILBURN [facility] During your visit today, we recorded the following information about you: Pulse Respiration Blood pressure Weight 76/minute 18/minute 130/82 118.8 kg Height 1.778 m [place] 11/19/2021 9:58 AM Signed This note was created using [employer] Insp[employer] solutions to transform citiesriter. Subjective Yefri Yanez is a 56 year [...] Haylee Wilburn MD 11/19/2021 9:58 AM Signed [facility] Progress Note SERVICE DATE: November 19, 2021 [...] started treatment with cabo + nivo on [facility] 1820 Trial on 08/08/2021 at [facility]. He has baseline HTN and developed worsening HTN after starting treatment. His cabo was held on 08/18/2021, resumed on 09/11/2021. The Nivo was held on 09/11/21 due to pneumonitis, and prednisone 60 mg daily was started and tapered off within about one month. Due to insurance change, he was taken off the trial and referred to [facility] to resume the treatment. He was [...] Rhythm: No (more content not included)... Normal [facility] 11-06-2021 [facility] Telephone ([facility]) ----- YEFRI YANEZ ([id number]) 1965 M [facility] Date Time Provider Department 11/06/21 HAYLEE WILBURN [facility] During your visit today, we recorded the following information about you: Tania Parekh RN 11/06/2021 9:32 AM Signed Spoke with computer help desk representative from [employer], she is asking that we reach out [...] by this patient by: SPOUSE Safia Carr, [facility] Problem List As Of Date 11/06/2021 Noted [...] Encounter Status:Closed by TANIA PAREKH on 11/06/21 [facility] CNPN Telephone ([facility]) ----- YEFRI YANEZ ([id number]) 1965 M [facility] Date Time Provider Department 11/06/21 AMERICA SCHWARTZ [facility] During your visit today, we [...] PA-C - Fully Assessed 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] Cmt: Calling to get [...] by this patient by: SPOUSE Safia Carr [facility] Problem List As Of Date 11/06/2021 Noted [...] Encounter Status:Closed by AMERICA SCHWARTZ on 11/06/21 [facility] Dougie 11-03-2021 [facility] Telephone ([facility]) ----- YEFRI YANEZ ([id number]) 1965 M [facility] Date Time Provider Department 11/03/21 HAYLEE WILBURN [facility] During your visit today, we [...] by this patient by: SPOUSE Safia Carr, [facility] Problem List As Of Date 11/03/2021 Noted [...] Encounter Status:Closed by [facility] ----- YEFRI YANEZ ([id number]) 1965 M [facility] Date Time Provider Department 11/03/21 HAYLEE WILBURN [facility] During your visit today, we [...] by this patient by: SPOUSE Safia Carr, [facility] Problem List As Of Date 11/03/2021 Noted [...] Encounter Status:Closed by AMERICA SCHWARTZ on 11/03/21 [facility] CBC W Auto Differential pane l (Bld)on 10-27-2021 Basophils (Bld) [#/Vol] 0.03 10*3/uL Normal <0.11 [facility] Comment on above: Order Comment: Speci men Type: BLOOD SPECIMENOrdering Facility: [facility] Address: [address] [place] [address] [place] [address] Performed By: #### 5 7021-8 ####[facility] LABCLIA [id number] [place] [address] [place] Basophils/100 WBC (Bld) 0.6 % Normal [facility] Comment on above: Order Comment: Speci men Type: BLOOD SPECIMENOrdering Facility: [facility] Address: [address] [place] [address] Performed By: #### 5 7021-8 ####[facility] LABCLIA [id number] [place] [address] [place] Differential cell count method Nom (Bld) Auto Normal [facility] Comment on above: Order Comment: Speci men Type: BLOOD SPECIMENOrdering Facility: [facility] Address: [address] [place] [address] Performed By: #### 5 7021-8 ####[facility] LABCLIA [id number] [place] [address] [place] Eosinophils (Bld) [#/Vol] 0.03 10*3/uL Normal <0.46 [facility] Comment on above: Order Comment: Speci men Type: BLOOD SPECIMENOrdering Facility: [facility] Address: [address] [place], [place] [address] Performed By: #### 5 7021-8 ####[facility] LABCLIA [id number] [address] STATES OF [facility] Eosinophils/100 WBC (Bld) 0.6 % Normal [facility] Comment on above: Order Comment: Speci men Type: BLOOD SPECIMENOrdering Facility: [facility] Address: [address] [place], [place] [address] Performed By: #### 5 7021-8 ####[facility] LABCLIA [id number] [place] [address] [place] Erythrocyte distribution width (RBC) [Ratio] 16.6 % High 11.5-15.0 [facility] Comment on above: Order Comment: Speci men Type: BLOOD SPECIMENOrdering Facility: [facility] Address: [address] [place], [place] [address] Performed By: #### 5 7021-8 ####[facility] LABIA [id number] [address] [facility] Hematocrit (Bld) [Volume fraction] 48.6 % Normal 39.0-51.0 [facility] Comment on above: Order Comment: Speci men Type: BLOOD SPECIMENOrdering Facility: [facility] Address: [address] [place], [place] [address] Performed By: #### 5 7021-8 ####[facility] LABIA [id number] [address] Hemoglobin (Bld) [Mass/Vol] 16.3 g/dL Normal 13.0-17.0 [facility] Comment on above: Order Comment: Speci men Type: BLOOD SPECIMENOrdering Facility: [facility] Address: [address] [place], [place] [address] Performed By: #### 5 7021-8 ####[facility] LABIA [id number] [address] OF POP IMMATURE GRAN % 0.8 % Normal [facility] Comment on above: Order Comment: Speci men Type: BLOOD SPECIMENOrdering Facility: [facility] Address: [address] [place], [place] [address] Performed By: #### 5 7021-8 ####[facility] LABIA [id number] [address] OF POP IMMATURE GRAN ABS 0.04 k/uL Normal <0.10 [facility] Comment on above: Order Comment: Speci men Type: BLOOD SPECIMENOrdering Facility: [facility] Address: [address] [place], [place] [address] Performed By: #### 5 7021-8 ####[facility] LABIA [id number] [place] [address] [place] Lymphocytes (Bld) [#/Vol] 1.62 10*3/uL Normal 1.00-4.00 [facility] Comment on above: Order Comment: Speci men Type: BLOOD SPECIMENOrdering Facility: [facility] Address: [address] [place] [address] Performed By: #### 5 7021-8 ####[facility] LABIA [id number] [place] [address] [place] Lymphocytes/100 WBC (Bld) 32.0 % Normal [facility] Comment on above: Order Comment: Speci men Type: BLOOD SPECIMENOrdering Facility: [facility] Address: [address] [place] [address] Performed By: #### 5 7021-8 ####[facility] [id number] [place] [address] [place] MCH (RBC) [Entitic mass] 30.0 pg Normal 26.0-34.0 [facility] Comment on above: Order Comment: Speci men Type: BLOOD SPECIMENOrdering Facility: [facility] Address: [address] [place] [address] Performed By: #### 5 7021-8 ####[facility] LABIA [id number] [place] [address] [place] MCHC (RBC) [Mass/Vol] 33.5 g/dL Normal 30.5-36.0 [facility] Comment on above: Order Comment: Speci men Type: BLOOD SPECIMENOrdering Facility: [facility] Address: [address] [place], [place] [address] Performed By: #### 5 7021-8 ####[facility] LABIA [id number] [place] [address] [place] MCV (RBC) [Entitic vol] 89.3 fL Normal 80.0-100.0 C [facility] Comment on above: Order Comment: Speci men Type: BLOOD SPECIMENOrdering Facility: [facility] Address: [address] [place] [address] Performed By: #### 5 7021-8 ####[facility] LABCLIA [id number] [place] [address] [place] Monocytes (Bld) [#/Vol] 0.44 10*3/uL Normal <0.87 [facility] Comment on above: Order Comment: Speci men Type: BLOOD SPECIMENOrdering Facility: [facility] Address: [address] [place], [place] [address] Performed By: #### 5 7021-8 ####[facility] LABCLIA [id number] [place] [address] [place] Monocytes/100 WBC (Bld) 8.7 % Normal C [facility] Comment on above: Order Comment: Speci men Type: BLOOD SPECIMENOrdering Facility: [facility] Address: [address] [place], [place] [address] Performed By: #### 5 7021-8 ####[facility] LABCLIA [id number] [place] [address] [place] Neutrophils (Bld) [#/Vol] 2.90 10*3/uL Normal 1.45-7.50 [facility] Comment on above: Order Comment: Speci men Type: BLOOD SPECIMENOrdering Facility: [facility] Address: [address] [place], [place] [address] Performed By: #### 5 7021-8 ####[facility] LABCLIA [id number] [place] [address] [place] Neutrophils/100 WBC (Bld) 57.3 % Normal [facility] Comment on above: Order Comment: Speci men Type: BLOOD SPECIMENOrdering Facility: [facility] Address: [address] [place] [address] Performed By: #### 5 7021-8 ####[facility] LABCLIA [id number] [place] [address] [place] Nucleated RBC (Bld) [#/Vol] 10*3/uL Normal <0.01 [facility] Comment on above: Order Comment: Speci men Type: BLOOD SPECIMENOrdering Facility: [facility] Address: [address] [place] [address] Performed By: #### 5 7021-8 ####[facility] LABIA [id number] [place] [address] [place] Nucleated RBC/100 WBC (Bld) [Ratio] 0.0 /100 WBC Normal [facility] Comment on above: Order Comment: Speci men Type: BLOOD SPECIMENOrdering Facility: [facility] Address: [address] [place] [address] Performed By: #### 5 7021-8 ####[facility] LABIA [id number] [place] [address] [place] Platelet mean volume (Bld) [Entitic vol] 10.6 fL Normal 9.0-12.7 [facility] Comment on above: Order Comment: Speci men Type: BLOOD SPECIMENOrdering Facility: [facility] Address: [address] [place] [address] Performed By: #### 5 7021-8 ####[facility] LABCLIA [id number] [place] [address] [place] Platelets (Bld) [#/Vol] 237 10*3/uL Normal 150-400 [facility] Comment on above: Order Comment: Speci men Type: BLOOD SPECIMENOrdering Facility: [facility] Address: [address] [place] [address] Performed By: #### 5 7021-8 ####[facility] LABCLIA [id number] [place] [address] [place] RBC (Bld) [#/Vol] 5.44 10*6/uL Normal 4.20-6.00 [facility] Comment on above: Order Comment: Speci men Type: BLOOD SPECIMENOrdering Facility: [facility] Address: [address] [place], [place] [address] Performed By: #### 5 7021-8 ####[facility] LABCLIA [id number] [place] [address] [place] WBC (Bld) [#/Vol] 5.06 10*3/uL Normal 3.70-11.00 [facility] Comment on above: Order Comment: Speci men Type: BLOOD SPECIMENOrdering Facility: [facility] Address: [address] [place] [address] Performed By: #### 5 7021-8 ####[facility] LABCLIA [id number] [place] [address] [place] CNPNon 10-27-2021 CNPN Normal [facility] CONFIRM BLOOD TYPEon 022 ABO O Normal [facility] Comment on above: Order Comment: Speci men Type: BLOOD SPECIMENOrdering Facility: [facility] Address: [address] [place], [place] [address] Performed By: #### C ONABO ####[facility] BLOOD BANKCLIA [id number] [place] [address] [place] Rh Nom (Bld) Positive Normal [facility] Comment on above: Order Comment: Speci men Type: BLOOD SPECIMENOrdering Facility: [facility] Address: [address] [place] [address] Performed By: #### C ONABO ####[facility] BLOOD BANKCLIA [id number] [place] [address] [place] Comprehensive metabolic 2000 panelon 10-27-2021 Albumin [Mass/Vol] 3.8 g/dL Low 3.9-4.9 [facility] Comment on above: Order Comment: Speci men Type: BLOOD SPECIMENOrdering Facility: [facility] Address: [address] [place] [address] Performed By: #### 2 4323-8, 3016-3 ####[facility] LABCLIA [id number] [place] [address] [place] ALP [Catalytic activity/Vol] 54 U/L Normal 38-113 [facility] Comment on above: Order Comment: Speci men Type: BLOOD SPECIMENOrdering Facility: [facility] Address: [address] [place], [place] [address] Performed By: #### 2 4323-8, 6-3 ####[facility] LABCLIA [id number] [address] [place] ALT [Catalytic activity/Vol] 20 U/L Normal 10-54 [facility] Comment on above: Order Comment: Speci men Type: BLOOD SPECIMENOrdering Facility: [facility] Address: [address] [place], [place] [address] Performed By: #### 2 4323-8, 6-3 ####[facility] LABCLIA [id number] [place] [address] [place] Anion gap [Moles/Vol] 11 mmol/L Normal 9-18 [facility] Comment on above: Order Comment: Speci men Type: BLOOD SPECIMENOrdering Facility: [facility] Address: [address] [place], [place] [address] Performed By: #### 2 4323-8, 3016-3 ####[facility] LABCLIA [id number] [place] [address] [place] AST [Catalytic activity/Vol] 22 U/L Normal 14-40 [facility] Comment on above: Order Comment: Speci men Type: BLOOD SPECIMENOrdering Facility: [facility] Address: [address] [place] [address] Performed By: #### 2 4323-8, 3016-3 ####[facility] LABCLIA [id number] [place] [address] [place] Bilirubin [Mass/Vol] 0.5 mg/dL Normal 0.2-1.3 [facility] Comment on above: Order Comment: Speci men Type: BLOOD SPECIMENOrdering Facility: [facility] Address: [address] [place] [address] Performed By: #### 2 4323-8, 6-3 ####[facility] LABIA [id number] [place] [address] [place] Calcium [Mass/Vol] 9.6 mg/dL Normal 8.5-10.2 [facility] Comment on above: Order Comment: Speci men Type: BLOOD SPECIMENOrdering Facility: [facility] Address: [address] [place] [address] Performed By: #### 2 4323-8, 6-3 ####[facility] LABIA [id number] [place] [address] [place] Chloride [Moles/Vol] 101 mmol/L Normal 97-105 [facility] Comment on above: Order Comment: Speci men Type: BLOOD SPECIMENOrdering Facility: [facility] Address: [address] [place] [address] Performed By: #### 2 4323-8, 6-3 ####[facility] LABCLIA [id number] [place] [id number] [place] CO2 [Moles/Vol] 28 mmol/L Normal 22-30 [facility] Comment on above: Order Comment: Speci men Type: BLOOD SPECIMENOrdering Facility: [facility] Address: [address] [place] [address] Performed By: #### 2 4323-8, 3016-3 ####[facility] LABCLIA [id number] [place] [address] [place] [facility] Creatinine [Mass/Vol] 1.07 mg/dL Normal 0.73-1.22 [facility] Comment on above: Order Comment: Speci men Type: BLOOD SPECIMENOrdering Facility: [facility] Address: [address] [place] [address] Performed By: #### 2 4323-8, 3016-3 ####[facility] LABIA [id number] [place] [address] [place] ESTIMATED GLOMERULAR FILTRATION RATE 81 mL/min/1.73m??? Normal >=60 [facility] Comment on above: Order Comment: Speci men Type: BLOOD SPECIMENOrdering Facility: [facility] Address: [address] [place] [address] Result Comment: Laurita mated Glomerular Filtration Rate [...] GFR. Performed By: #### 2 4323-8, 6-3 ####[facility] LABIA [id number] [place] [address] [place] Glucose [Mass/Vol] 111 mg/dL High 74-99 [facility] Comment on above: Order Comment: Speci men Type: BLOOD SPECIMENOrdering Facility: [facility] Address: [address] [address] Result Comment: The [place] Diabetes [employer] (ADA) provides guidance for cutoff [...] Standards of Medical Care in Diabetes 2016, [place] [employer]. Diabetes Care. 2016.39(Suppl 1). Performed By: #### 2 4323-8, 6-3 ####[facility] LABCLIA [id number] [place] [address] [place] Potassium [Moles/Vol] 3.5 mmol/L Low 3.7-5.1 [facility] Comment on above: Order Comment: Speci men Type: BLOOD SPECIMENOrdering Facility: [facility] Address: [address] [place] [address] Performed By: #### 2 43205-13, 3015-3 ####[facility] LABCLIA [id number] [place] [address] [place] Protein [Mass/Vol] 6.8 g/dL Normal 6.3-8.0 [facility] Comment on above: Order Comment: Speci men Type: BLOOD SPECIMENOrdering Facility: [facility] Address: [address] [place] [address] Performed By: #### 2 4328, 3015-3 ####[facility] LABCLIA [id number] [place] [address] [place] Sodium [Moles/Vol] 140 mmol/L Normal 136-144 [facility] Comment on above: Order Comment: Speci men Type: BLOOD SPECIMENOrdering Facility: [facility] Address: [address] [place], [place] [address] Performed By: #### 2 4323-8, 6-3 ####[facility] LABCLIA [id number] [place] [id number] [place] Urea nitrogen [Mass/Vol] 9 mg/dL Normal 9-24 [facility] Comment on above: Order Comment: Spectricia gibson Type: BLOOD SPECIMENOrdering Facility: [facility] Address: [address] [place] [address] Performed By: #### 2 4323-8, 3016-3 ####[facility] LABCLIA [id number] [place] [address] [place] ECG COMPLETEon 10-27-2021 ECG COMPLETE Normal [facility] HISTORY PHYSICALon 2 HISTORY PHYSICAL Normal [facility] PT panel Coag (PPP)on 2021 INR Coag (PPP) [Relative time] 2.2 {INR} High 0.9-1.3 [facility] Comment on above: Order Comment: Aaliyah gibson Type: BLOOD SPECIMENOrdering Facility: [facility] Address: [address] [place] [address] Result Comment: Constanza min K Antagonist (VKA) Therapeutic Range: INR 2 to 3 (Target INR of 2.5)Note: For patients treated with VKA drugs, such as warfarin, the [place] [employer] 2012 Guideline recommends [...] 70: 252-289 Performed By: #### 3 4528-0, 20212-8 ####[facility] LABCLIA [id number] [place] [address] [place] PT Coag (PPP) [Time] 22.4 s High 9.7-13.0 [facility] Comment on above: Order Comment: Speci men Type: BLOOD SPECIMENOrdering Facility: [facility] Address: [address] [place] [address] Performed By: #### 3 4528-0, 59587-2 ####[facility] LABCLIA [id number] [address] OF [facility] TSH SerPl-aCncon 10-27-2021 TSH Qn 1.530 m[IU]/L Normal 0.270-4.20 0 [facility] Comment on above: Order Comment: Speci men Type: BLOOD SPECIMENOrdering Facility: [facility] Address: [address] [place] [address] Performed By: #### 2 4323-8, 3016-3 ####[facility] LABCLIA [id number] [address] [facility] TYPE AND SCREEN,30 DAYon ABO O Normal [facility] Comment on above: Order Comment: Speci men Type: BLOOD SPECIMENOrdering Facility: [facility] Address: [address] [place] [address] Performed By: #### T SCR30 ####[facility] BLOOD BANKCLIA [id number] [address] STATES OF [place] HISTORICAL AB SCR STATUS Negative Normal [facility] Comment on above: Order Comment: Speci men Type: BLOOD SPECIMENOrdering Facility: [facility] Address: [address] [place] [address] Performed By: #### T SCR30 ####[facility] BLOOD BANKCLIA [id number] [address] OF [place] Rh Nom (Bld) Positive Normal [facility] Comment on above: Order Comment: Speci men Type: BLOOD SPECIMENOrdering Facility: [facility] Address: [address] [place], [place] [address] Performed By: #### T SCR30 ####[facility] BLOOD BANKCLIA [id number] [address] aPTT PPPon 10-27-2021 aPTT Coag (PPP) [Time] 35.8 s High 23.0-32.4 [facility] Comment on above: Order Comment: Speci men Type: BLOOD SPECIMENOrdering Facility: [facility] Address: [address] [address] Performed By: #### 3 4528-0, 10947-3 ####[facility] LABCLIA [id number] [address] CNPNon 10-21-2021 CNPN Telephone ([facility]) ----- YEFRI YANEZ ([id number]) 1965 M [facility] Date Time Provider Department 10/21/21 HAYLEE WILBURN [facility] During your visit today, we [...] for cabzantinib and sent new order to [facility] speciality pharmacy. Prescriptions as of 10/21/2021 - [...] by this patient by: SPOUSE Safia Carr [facility] Problem List As Of Date 10/21/2021 Noted [...] Encounter Status:Closed by AMERICA SCHWARTZ on 10/21/21 [facility] CNOVSPon 10-20-2021 CNOVSP Visit (SP) Office ([facility]) ----- YEFRI YANEZ ([id number]) 1965 M [facility] Date Time Provider Department 10/20/21 2:30 PM HAYLEE WILBURN [facility] During your visit today, we recorded the following information about you: Pulse Respiration Blood pressure Weight 60/minute 16/minute 130/78 115.2 kg Height 1.854 m Haylee Wilburn MD 10/21/2021 9:38 AM Signed [facility] Oncology Consult Note SERVICE DATE: October 20, [...] started treatment with cabo + nivo on [facility] 1820 on 08/08/2021. He has baseline HTN and developed worsening HTN after starting treatment. His cabo was held on 08/18/2021, resumed on 09/11/2021. The Nivo was held on 09/11/21 due to pneumonitis, and prednisone 60 mg daily was started and tapered off one week ago. Due to insurance change, he was taken off the trial and referred to [facility] to resume the treatment. He is [...] Never Tobacco comments (more content not included)... [facility] CNCOon 10-16-2021 CNCO Letter Text [facility] CNPShy 10-16-2021 CNPN [facility] CNPNon 10-14-2021 CNPN [facility] CBC W Auto Differential pane l (Bld)on 10-09-2021 Basophils (Bld) [#/Vol] 10*3/uL Normal <0.11 [facility] Comment on above: Order Comment: Speci men Type: BLOOD SPECIMENOrdering Facility: [facility] Address: [address] [place], [place] [address] Performed By: #### 5 7021-8 ####[facility] [id number] [place] [address] [place] Basophils/100 WBC (Bld) 0.3 % Normal C [facility] Comment on above: Order Comment: Speci men Type: BLOOD SPECIMENOrdering Facility: [facility] Address: [address] [place] [address] Performed By: #### 5 7021-8 ####[facility] [id number] [place] [address] [place] Differential cell count method Nom (Bld) Auto Normal [facility] Comment on above: Order Comment: Speci men Type: BLOOD SPECIMENOrdering Facility: [facility] Address: [address] [place], [place] [address] Performed By: #### 5 7021-8 ####[facility] [id number] [place] [address] [place] Eosinophils (Bld) [#/Vol] 0.03 10*3/uL Normal <0.46 [facility] Comment on above: Order Comment: Speci men Type: BLOOD SPECIMENOrdering Facility: [facility] Address: [address] [place], [place] [address] Performed By: #### 5 7021-8 ####[facility] [id number] [place] [address] Eosinophils/100 WBC (Bld) 0.4 % Normal [facility] Comment on above: Order Comment: Speci men Type: BLOOD SPECIMENOrdering Facility: [facility] Address: [address] [place], [place] [address] Performed By: #### 5 7021-8 ####[facility] [id number] [place] [address] [place] Erythrocyte distribution width (RBC) [Ratio] 17.2 % High 11.5-15.0 [facility] Comment on above: Order Comment: Speci men Type: BLOOD SPECIMENOrdering Facility: [facility] Address: [address] [place] [address] Performed By: #### 5 7021-8 ####[facility] [id number] [place] [address] [place] Hematocrit (Bld) [Volume fraction] 46.8 % Normal 39.0-51.0 [facility] Comment on above: Order Comment: Speci men Type: BLOOD SPECIMENOrdering Facility: [facility] Address: [address] [place] [address] Performed By: #### 5 7021-8 ####[facility] [id number] [place] [address] [place] Hemoglobin (Bld) [Mass/Vol] 15.5 g/dL Normal 13.0-17.0 [facility] Comment on above: Order Comment: Speci men Type: BLOOD SPECIMENOrdering Facility: [facility] Address: [address] [place] [address] Performed By: #### 5 7021-8 ####[facility] [id number] [place] [address] [facility] IMMATURE GRAN % 0.8 % Normal [facility] Comment on above: Order Comment: Speci men Type: BLOOD SPECIMENOrdering Facility: [facility] Address: [address] [place] [address] Performed By: #### 5 7021-8 ####[facility] [id number] [place] [address] [place] IMMATURE GRAN ABS 0.06 k/uL Normal <0.10 [facility] Comment on above: Order Comment: Speci men Type: BLOOD SPECIMENOrdering Facility: [facility] Address: [address] [place], [place] [address] Performed By: #### 5 7021-8 ####[facility] [id number] [place] [address] [place] Lymphocytes (Bld) [#/Vol] 2.33 10*3/uL Normal 1.00-4.00 [facility] Comment on above: Order Comment: Speci men Type: BLOOD SPECIMENOrdering Facility: [facility] Address: [address] [place] [address] Performed By: #### 5 7021-8 ####[facility] [id number] [place] [address] [place] Lymphocytes/100 WBC (Bld) 32.3 % Normal [facility] Comment on above: Order Comment: Speci men Type: BLOOD SPECIMENOrdering Facility: [facility] Address: [address] [place] [address] Performed By: #### 5 7021-8 ####[facility] [id number] [place] [address] [place] MCH (RBC) [Entitic mass] 30.2 pg Normal 26.0-34.0 [facility] Comment on above: Order Comment: Speci men Type: BLOOD SPECIMENOrdering Facility: [facility] Address: [address] [place], [place] [address] Performed By: #### 5 7021-8 ####[facility] [id number] [place] [address] [place] MCHC (RBC) [Mass/Vol] 33.1 g/dL Normal 30.5-36.0 [facility] Comment on above: Order Comment: Speci men Type: BLOOD SPECIMENOrdering Facility: [facility] Address: [address] [place], [place] [address] Performed By: #### 5 7021-8 ####[facility] [id number] [place] [address] [place] MCV (RBC) [Entitic vol] 91.2 fL Normal 80.0-100.0 C [facility] Comment on above: Order Comment: Speci men Type: BLOOD SPECIMENOrdering Facility: [facility] Address: [address] [place], [place] [address] Performed By: #### 5 7021-8 ####[facility] [id number] [place] [address] [place] Monocytes (Bld) [#/Vol] 0.35 10*3/uL Normal <0.87 [facility] Comment on above: Order Comment: Speci men Type: BLOOD SPECIMENOrdering Facility: [facility] Address: [address] [place], [place] [address] Performed By: #### 5 7021-8 ####[facility] [id number] [place] [address] [place] Monocytes/100 WBC (Bld) 4.8 % Normal C [facility] Comment on above: Order Comment: Speci men Type: BLOOD SPECIMENOrdering Facility: [facility] Address: [address] [place], [place] [address] Performed By: #### 5 7021-8 ####[facility] [id number] [place] [address] [place] Neutrophils (Bld) [#/Vol] 4.43 10*3/uL Normal 1.45-7.50 [facility] Comment on above: Order Comment: Speci men Type: BLOOD SPECIMENOrdering Facility: [facility] Address: [address] [place], [place] [address] Performed By: #### 5 7021-8 ####[facility] [id number] [place] Neutrophils/100 WBC (Bld) 61.4 % Normal [facility] Comment on above: Order Comment: Speci men Type: BLOOD SPECIMENOrdering Facility: [facility] Address: [address] [place] [address] Performed By: #### 5 7021-8 ####[facility] [id number] [place] [address] [place] Nucleated RBC (Bld) [#/Vol] 10*3/uL Normal <0.01 [facility] Comment on above: Order Comment: Speci men Type: BLOOD SPECIMENOrdering Facility: [facility] Address: [address] [place], [place] [address] Performed By: #### 5 7021-8 ####[facility] [id number] [place] [address] [place] Nucleated RBC/100 WBC (Bld) [Ratio] 0.0 /100 WBC Normal [facility] Comment on above: Order Comment: Speci men Type: BLOOD SPECIMENOrdering Facility: [facility] Address: [address] [place], [place] [address] Performed By: #### 5 7021-8 ####[facility] [id number] [place] [address] [place] Platelet mean volume (Bld) [Entitic vol] 9.1 fL Normal 9.0-12.7 [facility] Comment on above: Order Comment: Speci men Type: BLOOD SPECIMENOrdering Facility: [facility] Address: [address] [place], [place] [address] Performed By: #### 5 7021-8 ####[facility] [id number] [place] [address] [place] Platelets (Bld) [#/Vol] 243 10*3/uL Normal 150-400 [facility] Comment on above: Order Comment: Speci men Type: BLOOD SPECIMENOrdering Facility: [facility] Address: [address] [place], [place] [address] Performed By: #### 5 7021-8 ####[facility] [id number] [place] [address] [place] RBC (Bld) [#/Vol] 5.13 10*6/uL Normal 4.20-6.00 [facility] Comment on above: Order Comment: Speci men Type: BLOOD SPECIMENOrdering Facility: [facility] Address: [address] [place], [place] [address] Performed By: #### 5 7021-8 ####[facility] [id number] [place] [address] [place] WBC (Bld) [#/Vol] 7.22 10*3/uL Normal 3.70-11.00 [facility] Comment on above: Order Comment: Speci men Type: BLOOD SPECIMENOrdering Facility: [facility] Address: [address] [place], [place] [address] Performed By: #### 5 7021-8 ####[facility] [id number] [place] [address] [place] CNNURSEon 10-09-2021 CNNURSE Normal [facility] CNOVSPon 10-09-2021 CNOVSP Normal [facility] Comprehensive metabolic 2000 panelon 10-09-2021 Albumin [Mass/Vol] 4.0 g/dL Normal 3.9-4.9 [facility] Comment on above: Order Comment: Speci men Type: BLOOD SPECIMENOrdering Facility: [facility] Address: [address] [place] [address] Performed By: #### 2 4323-8, 3084-1, 00582-0 ####[facility] [id number] [place] [address] [place] ALP [Catalytic activity/Vol] 89 U/L Normal 38-113 [facility] Comment on above: Order Comment: Speci men Type: BLOOD SPECIMENOrdering Facility: [facility] Address: [address] [place], [place] [address] Performed By: #### 2 4323-8, 308-1, ####[facility] [id number] [place] [address] [place] ALT [Catalytic activity/Vol] 50 U/L Normal 10-54 [facility] Comment on above: Order Comment: Speci men Type: BLOOD SPECIMENOrdering Facility: [facility] Address: [address] [place], [place] [address] Performed By: #### 2 4323-8, 3083-03, ####[facility] [id number] [place] [address] [place] Anion gap [Moles/Vol] 9 mmol/L Normal 9-18 [facility] Comment on above: Order Comment: Speci men Type: BLOOD SPECIMENOrdering Facility: [facility] Address: [address] [place], [place] [address] Performed By: #### 2 4323-8, 3083-03, ####[facility] [id number] [place] [address] [place] AST [Catalytic activity/Vol] 24 U/L Normal 14-40 [facility] Comment on above: Order Comment: Speci men Type: BLOOD SPECIMENOrdering Facility: [facility] Address: [address] [place], [place] [address] Performed By: #### 2 4323-8, 3083-03, ####[facility] [id number] [place] [id number] [place] Bilirubin [Mass/Vol] 0.3 mg/dL Normal 0.2-1.3 [facility] Comment on above: Order Comment: Speci men Type: BLOOD SPECIMENOrdering Facility: [facility] Address: [address] [place], [place] [address] Performed By: #### 2 4323-8, 3083-, ####[facility] [id number] [place] [address] [place] Calcium [Mass/Vol] 9.3 mg/dL Normal 8.5-10.2 [facility] Comment on above: Order Comment: Speci men Type: BLOOD SPECIMENOrdering Facility: [facility] Address: [address] [place], [place] [address] Performed By: #### 2 4323-8, 3083-03, ####[facility] [id number] [place] [address] [place] Chloride [Moles/Vol] 104 mmol/L Normal 97-105 [facility] Comment on above: Order Comment: Speci men Type: BLOOD SPECIMENOrdering Facility: [facility] Address: [address] [place], [place] [address] Performed By: #### 2 4323-8, 3083-03, ####[facility] [id number] [place] [address] [place] CO2 [Moles/Vol] 28 mmol/L Normal 22-30 [facility] Comment on above: Order Comment: Speci men Type: BLOOD SPECIMENOrdering Facility: [facility] Address: [address] [place], [place] [address] Performed By: #### 2 4323-8, 3083-03, ####[facility] [id number] [place] [id number] [place] Creatinine [Mass/Vol] 1.19 mg/dL Normal 0.73-1.22 [facility] Comment on above: Order Comment: Speci men Type: BLOOD SPECIMENOrdering Facility: [facility] Address: [address] [place] [address] Performed By: #### 2 4323-8, 3084-1, ####[facility] [id number] [address] [place] ESTIMATED GLOMERULAR FILTRATION RATE 71 mL/min/1.73m??? Normal >=60 [facility] Comment on above: Order Comment: Aaliyah gibson Type: BLOOD SPECIMENOrdering Facility: [facility] Address: [address] [place], [place] [address] Result Comment: Laurita mated Glomerular Filtration Rate [...] 2 4323-8, 3084-1, ####[facility] [id number] [place] [address] [place] Glucose [Mass/Vol] 131 mg/dL High 74-99 [facility] Comment on above: Order Comment: Aaliyah paieg Type: BLOOD SPECIMENOrdering Facility: [facility] Address: [address] [place], [place] [address] Result Comment: The [place] [employer] (ADA) provides guidance for cutoff [...] Standards of Medical Care in Diabetes 2016, [place] [employer]. Diabetes Care. 2016.39(Suppl 1). Performed By: #### 2 4323-8, 3084-1, 34545-7 ####[facility] [id number] [place] [address] [place] Potassium [Moles/Vol] 4.0 mmol/L Normal 3.7-5.1 [facility] [facility] Comment on above: Order Comment: Speci men Type: BLOOD SPECIMENOrdering Facility: [facility] Address: [address] [place], [place] [address] Performed By: #### 2 4323-8, 3084-1, ####[facility] [id number] [place] [address] [place] Protein [Mass/Vol] 6.4 g/dL Normal 6.3-8.0 [facility] Comment on above: Order Comment: Speci men Type: BLOOD SPECIMENOrdering Facility: [facility] Address: [address] [place], [place] [address] Performed By: #### 2 4323-8, 308-1, ####[facility] [id number] [place] [address] [place] Sodium [Moles/Vol] 141 mmol/L Normal 136-144 [facility] Comment on above: Order Comment: Speci men Type: BLOOD SPECIMENOrdering Facility: [facility] Address: [address] [phone] Performed By: #### 2 4323-8, 3084-1, ####[facility] [id number] [place] [id number] [place] Urea nitrogen [Mass/Vol] 19 mg/dL Normal 9-24 [facility] Comment on above: Order Comment: Speci men Type: BLOOD SPECIMENOrdering Facility: [facility] Address: [address] [place], [place] [address] Performed By: #### 2 4323-8, 3084-1, 86216-2 ####[facility] [id number] [place] [address] LDH SerPl-cCncon 10-09-2021 LDH [Catalytic activity/Vol] 348 U/L High 135-225 [facility] Comment on above: Order Comment: Speci men Type: BLOOD SPECIMENOrdering Facility: [facility] Address: [address] [place] [address] Performed By: #### 2 532-0 ####[facility] [id number] [place] [address] Magnesium SerPl-mCncon 10-09 Magnesium [Mass/Vol] 2.2 mg/dL Normal 1.7-2.3 [facility] Comment on above: Order Comment: Speci men Type: BLOOD SPECIMENOrdering Facility: [facility] Address: [address] [place] [address] Performed By: #### 2 4323-8, 3084-1, 12888-1 ####[facility] [id number] [place] [address] PT panel Coag (PPP)on 2021 INR Coag (PPP) [Relative time] 2.8 {INR} High 0.9-1.3 [facility] Comment on above: Order Comment: Speci paige Type: BLOOD SPECIMENOrdering Facility: [facility] Address: [address] [place] [address] Result Comment: Constanza min K Antagonist (VKA) Therapeutic Range: INR 2 to 3 (Target INR of 2.5)Note: For patients treated with VKA drugs, such as warfarin, the [employer] 2012 Guideline recommends [...] al. Chest 2012, 141:7S-47SNishimura RA, et al. [facility] 2017, 70: 252-289 Performed By: #### 1 4979-9, 38055-0 ####[facility] [id number] [place] [address] [place] PT Coag (PPP) [Time] 27.9 s High 9.7-13.0 [facility] Comment on above: Order Comment: Spectricia men Type: BLOOD SPECIMENOrdering Facility: [facility] Address: [address] [place] [address] Performed By: #### 1 4979-9, 46772-1 ####[facility] [id number] [place] [address] [place] Phosphate SerPl-mCncon 10-09 Phosphate [Mass/Vol] 3.4 mg/dL Normal 2.7-4.8 [facility] Comment on above: Order Comment: Aaliyah gibson Type: BLOOD SPECIMENOrdering Facility: [facility] Address: [address] [place] [address] Performed By: #### 2 777-1 ####[facility] [id number] [place] [address] [place] T3Free SerPl-mCncon 10-10-19 22 Free T3 [Mass/Vol] 3.0 pg/mL Normal 2.3-4.1 [facility] Comment on above: Order Comment: Aaliyah gibson Type: BLOOD SPECIMENOrdering Facility: [facility] Address: [address] [place] [address] Performed By: #### 3 051-0, 3024-7 ####[facility] [id number] [place] [address] [place] T4 Free SerPl-mCncon 022 Free T4 [Mass/Vol] 1.2 ng/dL Normal 0.9-1.7 [facility] Comment on above: Order Comment: Speci men Type: BLOOD SPECIMENOrdering Facility: [facility] Address: [address] [place] [address] Performed By: #### 3 051-0, 3024-7 ####[facility] [id number] [place] [address] [place] TSH SerPl-aCncon 10-09-2021 TSH Qn 0.925 m[IU]/L Normal 0.270-4.20 0 [facility] Comment on above: Order Comment: Speci men Type: BLOOD SPECIMENOrdering Facility: [facility] Address: [address] [place] [address] Performed By: #### 3 016-3 ####[facility] [id number] [address] [place] Urate SerPl-mCncon 2 Urate [Mass/Vol] 8.3 mg/dL High 4.0-8.1 [facility] Comment on above: Order Comment: Speci men Type: BLOOD SPECIMENOrdering Facility: [facility] Address: [address] [place] [address] Performed By: #### 2 4323-8, 3084-1, 26631-2 ####[facility] [id number] [place] [address] [place] aPTT PPPon 10-09-2021 aPTT Coag (PPP) [Time] 31.7 s Normal 23.0-32.4 [facility] Comment on above: Order Comment: Speci men Type: BLOOD SPECIMENOrdering Facility: [facility] Address: [address] [place], [place] [address] Performed By: #### 1 4979-9, 38142-7 ####[facility] LABCLIA [id number] [place] [address] [place] CNPNon 09-29-2021 CNPN Normal [facility] CNPTOUTREACHon 09-29-2021 CNPTOUTREACH Normal [facility] Basic metabolic 2000 panelon 09-26-2021 Anion gap [Moles/Vol] 6 mmol/L Low 9-18 [facility] Comment on above: Order Comment: Speci men Type: BLOOD SPECIMENOrdering Facility: [facility] Address: [address] [place], [place] [address] Performed By: #### 2 4321-2 ####[facility] LABCLIA [id number] [place] [address] [place] Calcium [Mass/Vol] 9.9 mg/dL Normal 8.5-10.2 [facility] Comment on above: Order Comment: Speci men Type: BLOOD SPECIMENOrdering Facility: [facility] Address: [address] [place], [place] [address] Performed By: #### 2 4321-2 ####[facility] LABCLIA [id number] [place] [address] [place] Chloride [Moles/Vol] 98 mmol/L Normal 97-105 [facility] Comment on above: Order Comment: Speci men Type: BLOOD SPECIMENOrdering Facility: [facility] Address: [address] [place], [place] [address] Performed By: #### 2 4321-2 ####[facility] LABCLIA [id number] [place] [address] [place] CO2 [Moles/Vol] 38 mmol/L High 22-30 [facility] Comment on above: Order Comment: Speci men Type: BLOOD SPECIMENOrdering Facility: [facility] Address: [address] [address] Performed By: #### 2 4321-2 ####[facility] LABIA [id number] [address] [place] Creatinine [Mass/Vol] 1.07 mg/dL Normal 0.73-1.22 [facility] Comment on above: Order Comment: Speci men Type: BLOOD SPECIMENOrdering Facility: [facility] Address: [address] [place] [address] Performed By: #### 2 4321-2 ####[facility] LABIA [id number] [address] [place] ESTIMATED GLOMERULAR FILTRATION RATE 81 mL/min/1.73m??? Normal >=60 [facility] Comment on above: Order Comment: Speci men Type: BLOOD SPECIMENOrdering Facility: [facility] Address: [address] [place] [address] Result Comment: Laurita mated Glomerular Filtration Rate [...] actual GFR. Performed By: #### 2 4321-2 ####[facility] LABIA [id number] [place] [address] [place] Glucose [Mass/Vol] 127 mg/dL High 74-99 [facility] Comment on above: Order Comment: Speci men Type: BLOOD SPECIMENOrdering Facility: [facility] Address: [address] [place] [address] Result Comment: The [employer] [employer] (ADA) provides guidance for cutoff [...] Standards of Medical Care in Diabetes 2016, [employer] [employer]. Diabetes Care. 2016.39(Suppl 1). Performed By: #### 2 4321-2 ####[facility] LABCLIA [id number] [place] [address] [place] Potassium [Moles/Vol] 3.7 mmol/L Normal 3.7-5.1 [facility] Comment on above: Order Comment: Aaliyah gibson Type: BLOOD SPECIMENOrdering Facility: [facility] Address: [address] [place] [address] Performed By: #### 2 4321-2 ####[facility] LABCLIA [id number] [place] [address] [place] Sodium [Moles/Vol] 142 mmol/L Normal 136-144 [facility] Comment on above: Order Comment: Aaliyah gibson Type: BLOOD SPECIMENOrdering Facility: [facility] Address: [address] [place] [address] Performed By: #### 2 4321-2 ####[facility] LABCLIA [id number] [place] [address] [place] Urea nitrogen [Mass/Vol] 27 mg/dL High 9-24 [facility] Comment on above: Order Comment: Aaliyah gibson Type: BLOOD SPECIMENOrdering Facility: [facility] Address: [address] [place] [address] Performed By: #### 2 4321-2 ####[facility] LABCLIA [id number] [place] [address] [place] CBC panel Auto (Bld)on 09-26 Erythrocyte distribution width (RBC) [Ratio] 17.2 % High 11.5-15.0 [facility] Comment on above: Order Comment: Speci men Type: BLOOD SPECIMENOrdering Facility: [facility] Address: [address] [place] [address] Performed By: #### 5 8410-2 ####[facility] LABCLIA [id number] [address] STATES [facility] Hematocrit (Bld) [Volume fraction] 41.7 % Normal 39.0-51.0 [facility] Comment on above: Order Comment: Speci men Type: BLOOD SPECIMENOrdering Facility: [facility] Address: [address] [place] [address] Performed By: #### 5 8410-2 ####[facility] LABCLIA [id number] [address] [place] Hemoglobin (Bld) [Mass/Vol] 13.4 g/dL Normal 13.0-17.0 [facility] Comment on above: Order Comment: Speci men Type: BLOOD SPECIMENOrdering Facility: [facility] Address: [address] [place], [place] [address] Performed By: #### 5 8410-2 ####[facility] LABCLIA [id number] [place] [address] [place] MCH (RBC) [Entitic mass] 29.8 pg Normal 26.0-34.0 [facility] Comment on above: Order Comment: Speci men Type: BLOOD SPECIMENOrdering Facility: [facility] Address: [address] [place], [place] [address] Performed By: #### 5 8410-2 ####[facility] LABCLIA [id number] [place] [address] [place] MCHC (RBC) [Mass/Vol] 32.1 g/dL Normal 30.5-36.0 [facility] Comment on above: Order Comment: Speci men Type: BLOOD SPECIMENOrdering Facility: [facility] Address: [address] [place], [place] [address] Performed By: #### 5 8410-2 ####[facility] LABIA [id number] [place] [address] [place] MCV (RBC) [Entitic vol] 92.7 fL Normal 80.0-100.0 [facility] Comment on above: Order Comment: Speci men Type: BLOOD SPECIMENOrdering Facility: [facility] Address: [address] [place], [place] [address] Performed By: #### 5 8410-2 ####[facility] [id number] [place] [address] [place] Nucleated RBC (Bld) [#/Vol] 0.02 10*3/uL High <0.01 [facility] Comment on above: Order Comment: Speci men Type: BLOOD SPECIMENOrdering Facility: [facility] Address: [address] [place], [place] [address] Performed By: #### 5 8410-2 ####[facility] [id number] [place] [address] [place] Platelet mean volume (Bld) [Entitic vol] 10.4 fL Normal 9.0-12.7 [facility] Comment on above: Order Comment: Speci men Type: BLOOD SPECIMENOrdering Facility: [facility] Address: [address] [place] [address] Performed By: #### 5 8410-2 ####[facility]UN[facility] [id number] [place] [address] [place] Platelets (Bld) [#/Vol] 177 10*3/uL Normal 150-400 [facility] Comment on above: Order Comment: Speci men Type: BLOOD SPECIMENOrdering Facility: [facility] Address: [address] [phone] Performed By: #### 5 8410-2 ####[facility] LABCLIA [id number] [place] [address] [place] RBC (Bld) [#/Vol] 4.50 10*6/uL Normal 4.20-6.00 [facility] Comment on above: Order Comment: Speci men Type: BLOOD SPECIMENOrdering Facility: [facility] Address: [address] [place], [place] [address] Performed By: #### 5 8410-2 ####[facility] LABIA [id number] [place] [address] [place] WBC (Bld) [#/Vol] 9.26 10*3/uL Normal 3.70-11.00 [facility] Comment on above: Order Comment: Speci men Type: BLOOD SPECIMENOrdering Facility: [facility] Address: [address] [place], [place] [address] Performed By: #### 5 8410-2 ####[facility] LABIA [id number] [place] [address] [place] CNDSon 09-26-2021 CNDS Normal [facility] ECG COMPLETEon 09-26-2021 ECG COMPLETE Normal [facility] ECHOLon 09-26-2021 ECHOL Normal [facility] NURSING PROGon 09-26-2021 NURSING PROG Normal [facility] PT EDon 09-26-2021 PT ED Normal [facility] PT panel Coag (PPP)on 2021 INR Coag (PPP) [Relative time] 1.3 {INR} Normal 0.9-1.3 [facility] Comment on above: Order Comment: Speci men Type: BLOOD SPECIMENOrdering Facility: [facility] Address: [address] [place], [place] [phone] Result Comment: Constanza min K Antagonist (VKA) Therapeutic Range: INR 2 to 3 (Target INR of 2.5)Note: For patients treated with VKA drugs, such as warfarin, the [employer] [employer] 2012 Guideline recommends [...] al. Chest 2012, 141:7S-47SNishimura RA, et al. [facility] 2017, 70: 252-289 Performed By: #### 3 4528-0 ####[facility] LABCLIA [id number] [place] [address] [place] PT Coag (PPP) [Time] 13.5 s High 9.7-13.0 [facility] Comment on above: Order Comment: Speci men Type: BLOOD SPECIMENOrdering Facility: [facility] Address: [address] [place] [address] Performed By: #### 3 4528-0 ####[facility] LABIA [id number] [place] [address] [place] ANES POSTPROC EVALon 022 ANES POSTPROC EVAL Normal [facility] ANES PRE-OPon 09-25-2021 ANES PRE-OP Normal [facility] Basic metabolic 2000 panelon 09-25-2021 Anion gap [Moles/Vol] 10 mmol/L Normal 9-18 [facility] Comment on above: Order Comment: Aaliyah gibson Type: BLOOD SPECIMENOrdering Facility: [facility] Address: [address] [place] [address] Performed By: #### 1 9123-9, 90730-2 ####[facility] LABCLIA [id number] [place] [address] [place] Calcium [Mass/Vol] 9.4 mg/dL Normal 8.5-10.2 [facility] Comment on above: Order Comment: Speci men Type: BLOOD SPECIMENOrdering Facility: [facility] Address: [address] [place] [address] Performed By: #### 1 9123-9, 79134-2 ####[facility] LABCLIA [id number] [place] [address] [place] Chloride [Moles/Vol] 99 mmol/L Normal 97-105 [facility] Comment on above: Order Comment: Speci men Type: BLOOD SPECIMENOrdering Facility: [facility] Address: [address] [place], [place] [address] Performed By: #### 1 9123-9, 98965-9 ####[facility] LABCLIA [id number] [place] [address] [place] CO2 [Moles/Vol] 31 mmol/L High 22-30 [facility] Comment on above: Order Comment: Speci men Type: BLOOD SPECIMENOrdering Facility: [facility] Address: [address] [place], [place] [address] Performed By: #### 1 9123-9, 59886-4 ####[facility] LABCLIA [id number] [place] [address] [place] Creatinine [Mass/Vol] 0.95 mg/dL Normal 0.73-1.22 [facility] Comment on above: Order Comment: Speci men Type: BLOOD SPECIMENOrdering Facility: [facility] Address: [address] [place] [address] Performed By: #### 1 9123-9, 88616-3 ####[facility] LABCLIA [id number] [place] [address] [place] ESTIMATED GLOMERULAR FILTRATION RATE 93 mL/min/1.73m??? Normal >=60 [facility] Comment on above: Order Comment: Aaliyah gibson Type: BLOOD SPECIMENOrdering Facility: [facility] Address: [address] [place] [address] Result Comment: Laurita mated Glomerular Filtration Rate [...] actual GFR. Performed By: #### 1 9123-9, 36276-6 ####[facility]UN[facility] [id number] [place] [address] [place] Glucose [Mass/Vol] 116 mg/dL High 74-99 [facility] Comment on above: Order Comment: Aaliyah gibson Type: BLOOD SPECIMENOrdering Facility: [facility] Address: [address] [place] [address] Result Comment: The [place] [employer] (ADA) provides guidance for cutoff [...] Standards of Medical Care in Diabetes 2016, [place] [employer]. Diabetes Care. 2016.39(Suppl 1). Performed By: #### 1 9123-9, 82639-2 ####[facility] LABIA [id number] [place] [address] [place] Potassium [Moles/Vol] 3.8 mmol/L Normal 3.7-5.1 [facility] Comment on above: Order Comment: Speci men Type: BLOOD SPECIMENOrdering Facility: [facility] Address: [address] [place] [address] Performed By: #### 1 9123-9, 67735-4 ####[facility] LABCLIA [id number] [address] STATES OF [facility] Sodium [Moles/Vol] 140 mmol/L Normal 136-144 [facility] Comment on above: Order Comment: Speci men Type: BLOOD SPECIMENOrdering Facility: [facility] Address: [address] [place] [address] Performed By: #### 1 9123-9, 93323-3 ####[facility] LABCLIA [id number] [address] [place] Urea nitrogen [Mass/Vol] 24 mg/dL Normal 9-24 [facility] Comment on above: Order Comment: Speci men Type: BLOOD SPECIMENOrdering Facility: [facility] Address: [address] [place] [address] Performed By: #### 1 9123-9, 85725-1 ####[facility] LABIA [id number] [address] [place] CASE MANAGEMon 09-25-2021 CASE MANAGEM Normal [facility] CBC panel Auto (Bld)on 09-25 Erythrocyte distribution width (RBC) [Ratio] 17.1 % High 11.5-15.0 [facility] Comment on above: Order Comment: Speci men Type: BLOOD SPECIMENOrdering Facility: [facility] Address: [address] [place], [place] [address] Performed By: #### 5 8410-2 ####[facility] LABIA [id number] [address] [place] Hematocrit (Bld) [Volume fraction] 41.6 % Normal 39.0-51.0 [facility] Comment on above: Order Comment: Speci men Type: BLOOD SPECIMENOrdering Facility: [facility] Address: [address] [place], [place] [address] Performed By: #### 5 8410-2 ####[facility] [id number] [place] [address] [place] Hemoglobin (Bld) [Mass/Vol] 13.7 g/dL Normal 13.0-17.0 [facility] Comment on above: Order Comment: Speci men Type: BLOOD SPECIMENOrdering Facility: [facility] Address: [address] [place] [address] Performed By: #### 5 8410-2 ####[facility] [id number] [place] [address] [place] MCH (RBC) [Entitic mass] 30.3 pg Normal 26.0-34.0 [facility] Comment on above: Order Comment: Speci men Type: BLOOD SPECIMENOrdering Facility: [facility] Address: [address] [place], [place] [address] Performed By: #### 5 8410-2 ####[facility] [id number] [address] [place] MCHC (RBC) [Mass/Vol] 32.9 g/dL Normal 30.5-36.0 [facility] Comment on above: Order Comment: Speci men Type: BLOOD SPECIMENOrdering Facility: [facility] Address: [address] [place], [place] [address] Performed By: #### 5 8410-2 ####[facility]UN[facility] [id number] [place] [address] [place] MCV (RBC) [Entitic vol] 92.0 fL Normal 80.0-100.0 [facility] Comment on above: Order Comment: Speci men Type: BLOOD SPECIMENOrdering Facility: [facility] Address: [address] [place], [place] [address] Performed By: #### 5 8410-2 ####[facility] LABCLIA [id number] [facility] [place] [address] [place] Nucleated RBC (Bld) [#/Vol] 0.03 10*3/uL High <0.01 [facility] Comment on above: Order Comment: Speci men Type: BLOOD SPECIMENOrdering Facility: [facility] Address: [address] [place], [place] [address] Performed By: #### 5 8410-2 ####[facility] LABCLIA [id number] [place] [address] [place] Platelet mean volume (Bld) [Entitic vol] 10.2 fL Normal 9.0-12.7 [facility] Comment on above: Order Comment: Speci men Type: BLOOD SPECIMENOrdering Facility: [facility] Address: [address] [place], [place] [address] Performed By: #### 5 8410-2 ####[facility] LABIA [id number] [place] [address] [place] Platelets (Bld) [#/Vol] 175 10*3/uL Normal 150-400 [facility] Comment on above: Order Comment: Speci men Type: BLOOD SPECIMENOrdering Facility: [facility] Address: [address] [place], [place] [address] Performed By: #### 5 8410-2 ####[facility] LABCLIA [id number] [place] [address] [place] RBC (Bld) [#/Vol] 4.52 10*6/uL Normal 4.20-6.00 [facility] Comment on above: Order Comment: Speci men Type: BLOOD SPECIMENOrdering Facility: [facility] Address: [address] [place], [place] [address] Performed By: #### 5 8410-2 ####[facility] LABCLIA [id number] [place] [address] [place] WBC (Bld) [#/Vol] 10.86 10*3/uL Normal 3.70-11.00 [facility] Comment on above: Order Comment: Speci men Type: BLOOD SPECIMENOrdering Facility: [facility] Address: [address] [place] [address] Performed By: #### 5 8410-2 ####[facility] LABCLIA [id number] [place] [address] [place] CNOVon 09-25-2021 CNOV Normal [facility] [id number] 09-25-2021 ECG01 Normal [facility] Magnesium SerPl-mCncon 09-25 Magnesium [Mass/Vol] 2.2 mg/dL Normal 1.7-2.3 [facility] Comment on above: Order Comment: Speci men Type: BLOOD SPECIMENOrdering Facility: [facility] Address: [address] [place] [address] Performed By: #### 1 9123-9, 61098-1 ####[facility] LABCLIA [id number] [place] [address] [place] POTASSIUM BLDon 09-25-2021 Potassium [Moles/Vol] 4.5 mmol/L Normal 3.7-5.1 [facility] Comment on above: Order Comment: Speci men Type: BLOOD SPECIMENOrdering Facility: [facility] Address: [address] [place] [address] Performed By: #### K 1 ####[facility] LABIA [id number] [place] [address] [place] PT EDon 09-25-2021 PT ED Normal [facility] PT panel Coag (PPP)on 2021 INR Coag (PPP) [Relative time] 1.2 {INR} Normal 0.9-1.3 [facility] Comment on above: Order Comment: Speci men Type: BLOOD SPECIMENOrdering Facility: [facility] Address: [address] [place] [phone] Result Comment: Constanza min K Antagonist (VKA) Therapeutic Range: INR 2 to 3 (Target INR of 2.5)Note: For patients treated with VKA drugs, such as warfarin, the [employer] 2012 Guideline recommends [...] al. Chest 2012, 141:7S-47SNishimura RA, et al. [facility] 2017, 70: 252-289 Performed By: #### 3 4528-0 ####[facility] [id number] [place] [address] [place] PT Coag (PPP) [Time] 12.7 s Normal 9.7-13.0 [facility] Comment on above: Order Comment: Speci men Type: BLOOD SPECIMENOrdering Facility: [facility] Address: [address] [place], [place] [address] Performed By: #### 3 4528-0 ####[facility] [id number] [place] [address] [place] TEEon 09-25-2021 LISA Normal [facility] Basic metabolic 2000 panelon 09-24-2021 Anion gap [Moles/Vol] 12 mmol/L Normal 9-18 [facility] Comment on above: Order Comment: Speci men Type: BLOOD SPECIMENOrdering Facility: [facility] Address: [address] [place], [place] [address] Performed By: #### 1 9123-9, 65047-8 ####[facility] LABCLIA [id number] [facility]ITALLID AVENUEOJAI VALLEY [place] [address] [place] Calcium [Mass/Vol] 9.0 mg/dL Normal 8.5-10.2 [facility] Comment on above: Order Comment: Speci men Type: BLOOD SPECIMENOrdering Facility: [facility] Address: [address] [place], [place] [address] Performed By: #### 1 91239, 19709-0 ####[facility] LABCLIA [id number] [facility] [place] [address] [place] Chloride [Moles/Vol] 100 mmol/L Normal 97-105 [facility] Comment on above: Order Comment: Speci men Type: BLOOD SPECIMENOrdering Facility: [facility] Address: [address] [place] [address] Performed By: #### 1 91239, 08168-1 ####[facility] LABCLIA [id number] [facility] [place] [address] [place] CO2 [Moles/Vol] 29 mmol/L Normal 22-30 [facility] Comment on above: Order Comment: Speci men Type: BLOOD SPECIMENOrdering Facility: [facility] Address: [address] [place], [place] [address] Performed By: #### 1 9122-11, 91791-2 ####[facility] LABCLIA [id number] [facility] [place] [address] [place] Creatinine [Mass/Vol] 1.08 mg/dL Normal 0.73-1.22 [facility] Comment on above: Order Comment: Speci men Type: BLOOD SPECIMENOrdering Facility: [facility] Address: [address] [place], [place] [address] Performed By: #### 1 91239, 86898-9 ####[facility] LABCLIA [id number] [place] [address] [place] ESTIMATED GLOMERULAR FILTRATION RATE 80 mL/min/1.73m??? Normal >=60 [facility] Comment on above: Order Comment: Aaliyah gibson Type: BLOOD SPECIMENOrdering Facility: [facility] Address: [address] Result Comment: Laurita mated Glomerular Filtration [...] actual GFR. Performed By: #### 1 9123-9, 51984-3 ####[facility] LABCLIA [id number] [place] [address] [place] Glucose [Mass/Vol] 150 mg/dL High 74-99 [facility] Comment on above: Order Comment: Aaliyah gibson Type: BLOOD SPECIMENOrdering Facility: [facility] Address: [address] [address] Result Comment: The [place] Diabetes [employer] (ADA) provides guidance for cutoff [...] Standards of Medical Care in Diabetes 2016, [place] [employer]. Diabetes Care. 2016.39(Suppl 1). Performed By: #### 1 9123-9, 76929-1 ####[facility] LABCLIA [id number] [place] [address] [place] Potassium [Moles/Vol] 3.5 mmol/L Low 3.7-5.1 [facility] Comment on above: Order Comment: Speci men Type: BLOOD SPECIMENOrdering Facility: [facility] Address: [address] [place], [place] [address] Performed By: #### 1 9123-9, 82930-2 ####[facility] LABCLIA [id number] [place] [address] [place] Sodium [Moles/Vol] 141 mmol/L Normal 136-144 [facility] Comment on above: Order Comment: Speci men Type: BLOOD SPECIMENOrdering Facility: [facility] Address: [address] [place], [place] [address] Performed By: #### 1 9123-9, 84614-0 ####[facility] LABIA [id number] [place] [address] [place] Urea nitrogen [Mass/Vol] 22 mg/dL Normal 9-24 [facility] Comment on above: Order Comment: Speci men Type: BLOOD SPECIMENOrdering Facility: [facility] Address: [address] [place], [place] [address] Performed By: #### 1 9123-9, 48808-2 ####[facility] LABIA [id number] [place] [address] [place] CBC panel Auto (Bld)on 09-24 Erythrocyte distribution width (RBC) [Ratio] 17.2 % High 11.5-15.0 [facility] Comment on above: Order Comment: Speci men Type: BLOOD SPECIMENOrdering Facility: [facility] Address: [address] [place], [place] [address] Performed By: #### 5 8410-2 ####[facility] LABIA [id number] [address] [place] Hematocrit (Bld) [Volume fraction] 42.3 % Normal 39.0-51.0 [facility] Comment on above: Order Comment: Speci men Type: BLOOD SPECIMENOrdering Facility: [facility] Address: [address] [place] [address] Performed By: #### 5 8410-2 ####[facility] [id number] [place] [address] [place] Hemoglobin (Bld) [Mass/Vol] 13.6 g/dL Normal 13.0-17.0 [facility] Comment on above: Order Comment: Speci men Type: BLOOD SPECIMENOrdering Facility: [facility] Address: [address] [place] [address] Performed By: #### 5 8410-2 ####[facility] [id number] [address] [place] MCH (RBC) [Entitic mass] 30.0 pg Normal 26.0-34.0 [facility] Comment on above: Order Comment: Speci men Type: BLOOD SPECIMENOrdering Facility: [facility] Address: [address] [place] [address] Performed By: #### 5 8410-2 ####[facility] [id number] [address] [place] MCHC (RBC) [Mass/Vol] 32.2 g/dL Normal 30.5-36.0 [facility] Comment on above: Order Comment: Speci men Type: BLOOD SPECIMENOrdering Facility: [facility] Address: [address] [place], [place] [address] Performed By: #### 5 8410-2 ####[facility]UN[facility] [id number] [place] [address] [place] MCV (RBC) [Entitic vol] 93.4 fL Normal 80.0-100.0 [facility] Comment on above: Order Comment: Speci men Type: BLOOD SPECIMENOrdering Facility: [facility] Address: [address] [place], [place] [address] Performed By: #### 5 8410-2 ####[facility] LABCLIA [id number] [place] [address] [place] Nucleated RBC (Bld) [#/Vol] 10*3/uL Normal <0.01 [facility] Comment on above: Order Comment: Speci men Type: BLOOD SPECIMENOrdering Facility: [facility] Address: [address] [place], [place] [address] Performed By: #### 5 8410-2 ####[facility] LABCLIA [id number] [place] [address] [place] Platelet mean volume (Bld) [Entitic vol] 10.1 fL Normal 9.0-12.7 [facility] Comment on above: Order Comment: Speci men Type: BLOOD SPECIMENOrdering Facility: [facility] Address: [address] [place], [place] [address] Performed By: #### 5 8410-2 ####[facility] LABIA [id number] [place] [address] [place] Platelets (Bld) [#/Vol] 186 10*3/uL Normal 150-400 [facility] Comment on above: Order Comment: Speci men Type: BLOOD SPECIMENOrdering Facility: [facility] Address: [address] [place] [address] Performed By: #### 5 8410-2 ####[facility] LABIA [id number] [place] [address] [place] RBC (Bld) [#/Vol] 4.53 10*6/uL Normal 4.20-6.00 [facility] Comment on above: Order Comment: Speci men Type: BLOOD SPECIMENOrdering Facility: [facility] Address: [address] [place], [place] [address] Performed By: #### 5 8410-2 ####[facility] LABCLIA [id number] [place] [address] [place] WBC (Bld) [#/Vol] 9.42 10*3/uL Normal 3.70-11.00 [facility] Comment on above: Order Comment: Speci men Type: BLOOD SPECIMENOrdering Facility: [facility] Address: [address] [place] [address] Performed By: #### 5 8410-2 ####[facility] [id number] [place] [address] [place] Magnesium SerPl-mCncon 09-24 Magnesium [Mass/Vol] 2.1 mg/dL Normal 1.7-2.3 [facility] Comment on above: Order Comment: Speci men Type: BLOOD SPECIMENOrdering Facility: [facility] Address: [address] [place] [address] Performed By: #### 1 9123-9, 06722-8 ####[facility] [id number] [place] [address] [place] POTASSIUM BLDon 09-24-2021 Potassium [Moles/Vol] 3.7 mmol/L Normal 3.7-5.1 [facility] Comment on above: Order Comment: Speci men Type: BLOOD SPECIMENOrdering Facility: [facility] Address: [address] [place] [address] Performed By: #### K 1 ####[facility] [id number] [place] [address] [place] PT EDon 09-24-2021 PT ED Normal [facility] PT panel Coag (PPP)on 2021 INR Coag (PPP) [Relative time] 1.2 {INR} Normal 0.9-1.3 [facility] Comment on above: Order Comment: Speci men Type: BLOOD SPECIMENOrdering Facility: [facility] Address: [address] [place], [place] [address] Result Comment: Constanza min K Antagonist (VKA) Therapeutic Range: INR 2 to 3 (Target INR of 2.5)Note: For patients treated with VKA drugs, such as warfarin, the [place] [employer] 2012 Guideline recommends [...] al. Chest 2012, 141:7S-47SNishimkhalida RA, et al. [facility] 2017, 70: 252-289 Performed By: #### 3 4528-0 ####[facility] LABIA [id number] [place] [address] [place] PT Coag (PPP) [Time] 12.3 s Normal 9.7-13.0 [facility] Comment on above: Order Comment: Speci men Type: BLOOD SPECIMENOrdering Facility: [facility] Address: [address] [place] [address] Performed By: #### 3 4528-0 ####[facility] LABIA [id number] [place] [address] [place] PTT, ANTICOAGULANT THERAPYon 09-24-2021 aPTT Coag (PPP) [Time] 34.3 s High 23.0-32.4 [facility] Comment on above: Order Comment: Speci men Type: BLOOD SPECIMENOrdering Facility: [facility] Address: [address] [place] [address] Performed By: #### P TTAC ####[facility] LABCLIA [id number] [place] [address] [place] aPTT Coag (PPP) [Time] 53.2 s High 23.0-32.4 [facility] Comment on above: Order Comment: Speci men Type: BLOOD SPECIMENOrdering Facility: [facility] Address: [address] [place] [address] Performed By: #### P TTA ####[facility] LABCLIA [id number] [place] [address] [place] Basic metabolic 2000 panelon 09-23-2021 Anion gap [Moles/Vol] 9 mmol/L Normal 9-18 [facility] Comment on above: Order Comment: Speci men Type: BLOOD SPECIMENOrdering Facility: [facility] Address: [address] [place], [place] [address] Performed By: #### 3 016-3, 87361-2, 28435-7, 60709-8 ####[facility] LABCLIA [id number] [place] [address] [place] Calcium [Mass/Vol] 9.1 mg/dL Normal 8.5-10.2 [facility] Comment on above: Order Comment: Speci men Type: BLOOD SPECIMENOrdering Facility: [facility] Address: [address] [place] [address] Performed By: #### 3 016-3, 66145-5, 15554-7, 98653-2 ####[facility] LABCLIA [id number] [place] [address] [place] Chloride [Moles/Vol] 100 mmol/L Normal 97-105 [facility] Comment on above: Order Comment: Speci men Type: BLOOD SPECIMENOrdering Facility: [facility] Address: [address] [place], [place] [address] Performed By: #### 3 016-3, 07742-6, 28253-8, 27259-6 ####[facility] LABCLIA [id number] [place] [id number] [place] CO2 [Moles/Vol] 32 mmol/L High 22-30 [facility] Comment on above: Order Comment: Speci men Type: BLOOD SPECIMENOrdering Facility: [facility] Address: [address] [place] [address] Performed By: #### 3 016-3, 12928-9, 78278-0, ####[facility] LABCLIA [id number] [place] [address] [place] Creatinine [Mass/Vol] 1.20 mg/dL Normal 0.73-1.22 [facility] Comment on above: Order Comment: Speci men Type: BLOOD SPECIMENOrdering Facility: [facility] Address: [address] [place] [address] Performed By: #### 3 016-3, 77947-8, 75213-0, ####[facility] LABIA [id number] [address] [facility] ESTIMATED GLOMERULAR FILTRATION RATE 71 mL/min/1.73m??? Normal >=60 [facility] Comment on above: Order Comment: Speci men Type: BLOOD SPECIMENOrdering Facility: [facility] Address: [address] [place] [address] Result Comment: Laurita mated Glomerular Filtration Rate [...] actual GFR. Performed By: #### 3 016-3, 94299-8, 88124-9, ####[facility] LABCLIA [id number] [place] [address] [place] Glucose [Mass/Vol] 133 mg/dL High 74-99 [facility] Comment on above: Order Comment: Speci men Type: BLOOD SPECIMENOrdering Facility: [facility] Address: [address] [place], [place] [address] Result Comment: The [place] [employer] (ADA) provides guidance for cutoff [...] Standards of Medical Care in Diabetes 2016, [place] [employer]. Diabetes Care. 2016.39(Suppl 1). Performed By: #### 3 016-3, 65441-1, 41996-6, ####[facility] LABCLIA [id number] [place] [address] [place] Potassium [Moles/Vol] 3.1 mmol/L Low 3.7-5.1 [facility] Comment on above: Order Comment: Speci men Type: BLOOD SPECIMENOrdering Facility: [facility] Address: [address] [place] [address] Performed By: #### 3 016-3, 31009-2, 78909-8, ####[facility] LABCLIA [id number] [place] [address] [place] Sodium [Moles/Vol] 141 mmol/L Normal 136-144 [facility] Comment on above: Order Comment: Speci men Type: BLOOD SPECIMENOrdering Facility: [facility] Address: [address] [place] [address] Performed By: #### 3 016-3, 53322-8, 92616-1, ####[facility] LABCLIA [id number] [place] [address] [place] Urea nitrogen [Mass/Vol] 22 mg/dL Normal 9-24 [facility] Comment on above: Order Comment: Speci men Type: BLOOD SPECIMENOrdering Facility: [facility] Address: [address] [place] [address] Performed By: #### 3 016-3, 70098-8, 69469-3, 93766-4 ####[facility] LABCLIA [id number] [place] [address] [place] CASE MGT INIT ASSESon 2021 CASE MGT INIT ASSES Normal [facility] CBC W Auto Differential pane l (Bld)on 09-23-2021 Basophils (Bld) [#/Vol] 10*3/uL Normal <0.11 [facility] Comment on above: Order Comment: Speci men Type: BLOOD SPECIMENOrdering Facility: [facility] Address: [address] [place] [address] Performed By: #### 5 7021-8 ####[facility] LABCLIA [id number] [place] [address] [place] Basophils/100 WBC (Bld) 0.1 % Normal C [facility] Comment on above: Order Comment: Speci men Type: BLOOD SPECIMENOrdering Facility: [facility] Address: [address] [place] [address] Performed By: #### 5 7021-8 ####[facility] LABCLIA [id number] [place] [address] [place] Differential cell count method Nom (Bld) Auto Normal [facility] Comment on above: Order Comment: Speci men Type: BLOOD SPECIMENOrdering Facility: [facility] Address: [address] [place] [address] Performed By: #### 5 7021-8 ####[facility] LABCLIA [id number] [place] [address] [place] Eosinophils (Bld) [#/Vol] 10*3/uL Normal <0.46 [facility] Comment on above: Order Comment: Speci men Type: BLOOD SPECIMENOrdering Facility: [facility] Address: [address] [place], [place] [address] Performed By: #### 5 7021-8 ####[facility] LABCLIA [id number] [place] [address] [place] Eosinophils/100 WBC (Bld) 0.0 % Normal [facility] Comment on above: Order Comment: Speci men Type: BLOOD SPECIMENOrdering Facility: [facility] Address: [address] [place], [place] [address] Performed By: #### 5 7021-8 ####[facility] LABIA [id number] [place] [address] [place] Erythrocyte distribution width (RBC) [Ratio] 17.2 % High 11.5-15.0 [facility] Comment on above: Order Comment: Speci men Type: BLOOD SPECIMENOrdering Facility: [facility] Address: [address] [place], [place] [address] Performed By: #### 5 7021-8 ####[facility] LABIA [id number] [place] [address] [place] Hematocrit (Bld) [Volume fraction] 39.3 % Normal 39.0-51.0 [facility] Comment on above: Order Comment: Speci men Type: BLOOD SPECIMENOrdering Facility: [facility] Address: [address] [place] [address] Performed By: #### 5 7021-8 ####[facility] LABIA [id number] [place] [address] [place] Hemoglobin (Bld) [Mass/Vol] 12.7 g/dL Low 13.0-17.0 [facility] Comment on above: Order Comment: Speci men Type: BLOOD SPECIMENOrdering Facility: [facility] Address: [address] [place] [address] Performed By: #### 5 7021-8 ####[facility] LABCLIA [id number] [place] [address] [place] IMMATURE GRAN % 0.7 % Normal [facility] Comment on above: Order Comment: Speci men Type: BLOOD SPECIMENOrdering Facility: [facility] Address: [address] [place], [place] [address] Performed By: #### 5 7021-8 ####[facility] LABIA [id number] [place] [address] [place] IMMATURE GRAN ABS 0.06 k/uL Normal <0.10 [facility] Comment on above: Order Comment: Speci men Type: BLOOD SPECIMENOrdering Facility: [facility] Address: [address] [place], [place] [address] Performed By: #### 5 7021-8 ####[facility] LABIA [id number] [place] [address] [place] Lymphocytes (Bld) [#/Vol] 1.69 10*3/uL Normal 1.00-4.00 [facility] Comment on above: Order Comment: Speci men Type: BLOOD SPECIMENOrdering Facility: [facility] Address: [address] [place], [place] [address] Performed By: #### 5 7021-8 ####[facility] LABIA [id number] [place] [address] [place] Lymphocytes/100 WBC (Bld) 18.7 % Normal [facility] Comment on above: Order Comment: Speci men Type: BLOOD SPECIMENOrdering Facility: [facility] Address: [address] [place], [place] [address] Performed By: #### 5 7021-8 ####[facility] LABIA [id number] [place] [address] [place] MCH (RBC) [Entitic mass] 30.2 pg Normal 26.0-34.0 [facility] Comment on above: Order Comment: Speci men Type: BLOOD SPECIMENOrdering Facility: [facility] Address: [address] [place] [address] Performed By: #### 5 7021-8 ####[facility] LABCLIA [id number] [address] OF [place] MCHC (RBC) [Mass/Vol] 32.3 g/dL Normal 30.5-36.0 [facility] Comment on above: Order Comment: Speci men Type: BLOOD SPECIMENOrdering Facility: [facility] Address: [address] [place] [address] Performed By: #### 5 7021-8 ####[facility] LABCLIA [id number] [address] OF [place] MCV (RBC) [Entitic vol] 93.3 fL Normal 80.0-100.0 [facility] Comment on above: Order Comment: Speci men Type: BLOOD SPECIMENOrdering Facility: [facility] Address: [address] [place], [place] [address] Performed By: #### 5 7021-8 ####[facility] LABIA [id number] [place] [address] [place] Monocytes (Bld) [#/Vol] 0.62 10*3/uL Normal <0.87 [facility] Comment on above: Order Comment: Speci men Type: BLOOD SPECIMENOrdering Facility: [facility] Address: [address] [place], [place] [address] Performed By: #### 5 7021-8 ####[facility] LABCLIA [id number] [address] [place] Monocytes/100 WBC (Bld) 6.8 % Normal C [facility] Comment on above: Order Comment: Speci men Type: BLOOD SPECIMENOrdering Facility: [facility] Address: [address] [place] [address] Performed By: #### 5 7021-8 ####[facility] LABCLIA [id number] [place] [address] [place] Neutrophils (Bld) [#/Vol] 6.68 10*3/uL Normal 1.45-7.50 [facility] Comment on above: Order Comment: Speci men Type: BLOOD SPECIMENOrdering Facility: [facility] Address: [address] [place], [place] [address] Performed By: #### 5 7021-8 ####[facility] LABCLIA [id number] [place] [address] [place] Neutrophils/100 WBC (Bld) 73.7 % Normal [facility] Comment on above: Order Comment: Speci men Type: BLOOD SPECIMENOrdering Facility: [facility] Address: [address] [place], [place] [address] Performed By: #### 5 7021-8 ####[facility] LABCLIA [id number] [place] [address] [place] Nucleated RBC (Bld) [#/Vol] 10*3/uL Normal <0.01 [facility] Comment on above: Order Comment: Speci men Type: BLOOD SPECIMENOrdering Facility: [facility] Address: [address] [place] [address] Performed By: #### 5 7021-8 ####[facility] LABCLIA [id number] [place] [address] [place] Nucleated RBC/100 WBC (Bld) [Ratio] 0.0 /100 WBC Normal [facility] Comment on above: Order Comment: Speci men Type: BLOOD SPECIMENOrdering Facility: [facility] Address: [address] [place] [address] Performed By: #### 5 7021-8 ####[facility] LABCLIA [id number] [place] [address] [place] Platelet mean volume (Bld) [Entitic vol] 10.3 fL Normal 9.0-12.7 [facility] Comment on above: Order Comment: Speci men Type: BLOOD SPECIMENOrdering Facility: [facility] Address: [address] [place], [place] [address] Performed By: #### 5 7021-8 ####[facility] LABCLIA [id number] [place] [address] [place] Platelets (Bld) [#/Vol] 178 10*3/uL Normal 150-400 [facility] Comment on above: Order Comment: Speci men Type: BLOOD SPECIMENOrdering Facility: [facility] Address: [address] [place], [place] [address] Performed By: #### 5 7021-8 ####[facility] LABIA [id number] [place] [address] [place] RBC (Bld) [#/Vol] 4.21 10*6/uL Normal 4.20-6.00 [facility] Comment on above: Order Comment: Speci men Type: BLOOD SPECIMENOrdering Facility: [facility] Address: [address] [place], [place] [address] Performed By: #### 5 7021-8 ####[facility] LABIA [id number] [place] [address] [place] WBC (Bld) [#/Vol] 9.06 10*3/uL Normal 3.70-11.00 [facility] Comment on above: Order Comment: Speci men Type: BLOOD SPECIMENOrdering Facility: [facility] Address: [address] [place], [place] [address] Performed By: #### 5 7021-8 ####[facility] LABIA [id number] [place] AV[id number] CBC panel Auto (Bld)on 09-23 Erythrocyte distribution width (RBC) [Ratio] 17.1 % High 11.5-15.0 [facility] Comment on above: Order Comment: Speci men Type: BLOOD SPECIMENOrdering Facility: [facility] Address: [address] [place] [address] Performed By: #### 5 8410-2 ####[facility] LABCLIA [id number] [address] Hematocrit (Bld) [Volume fraction] 41.2 % Normal 39.0-51.0 [facility] Comment on above: Order Comment: Speci men Type: BLOOD SPECIMENOrdering Facility: [facility] Address: [address] [place] [address] Performed By: #### 5 8410-2 ####[facility] LABIA [id number] [address] Hemoglobin (Bld) [Mass/Vol] 13.3 g/dL Normal 13.0-17.0 [facility] Comment on above: Order Comment: Speci men Type: BLOOD SPECIMENOrdering Facility: [facility] Address: [address] [place] [address] Performed By: #### 5 8410-2 ####[facility] LABIA [id number] [address] [place] [facility] MCH (RBC) [Entitic mass] 30.4 pg Normal 26.0-34.0 [facility] Comment on above: Order Comment: Speci men Type: BLOOD SPECIMENOrdering Facility: [facility] Address: [address] [place], [place] [address] Performed By: #### 5 8410-2 ####[facility] LABCLIA [id number] [address] [place] [facility] MCHC (RBC) [Mass/Vol] 32.3 g/dL Normal 30.5-36.0 [facility] Comment on above: Order Comment: Speci men Type: BLOOD SPECIMENOrdering Facility: [facility] Address: [address] [place], [place] [address] Performed By: #### 5 8410-2 ####[facility] LABCLIA [id number] [place] [address] [place] MCV (RBC) [Entitic vol] 94.1 fL Normal 80.0-100.0 [facility] Comment on above: Order Comment: Speci men Type: BLOOD SPECIMENOrdering Facility: [facility] Address: [address] [place], [place] [address] Performed By: #### 5 8410-2 ####[facility] LABIA [id number] [place] [address] [place] Nucleated RBC (Bld) [#/Vol] 10*3/uL Normal <0.01 [facility] Comment on above: Order Comment: Speci men Type: BLOOD SPECIMENOrdering Facility: [facility] Address: [address] [place], [place] [address] Performed By: #### 5 8410-2 ####[facility] LABIA [id number] [place] [address] [place] Platelet mean volume (Bld) [Entitic vol] 10.0 fL Normal 9.0-12.7 [facility] Comment on above: Order Comment: Speci men Type: BLOOD SPECIMENOrdering Facility: [facility] Address: [address] [place] [address] Performed By: #### 5 8410-2 ####[facility] LABIA [id number] [place] [address] [place] Platelets (Bld) [#/Vol] 186 10*3/uL Normal 150-400 [facility] Comment on above: Order Comment: Speci men Type: BLOOD SPECIMENOrdering Facility: [facility] Address: [address] [place], [place] [address] Performed By: #### 5 8410-2 ####[facility] LABIA [id number] [place] [address] [place] RBC (Bld) [#/Vol] 4.38 10*6/uL Normal 4.20-6.00 [facility] Comment on above: Order Comment: Speci men Type: BLOOD SPECIMENOrdering Facility: [facility] Address: [address] [place], [place] [address] Performed By: #### 5 8410-2 ####[facility] LABIA [id number] [place] [address] [place] WBC (Bld) [#/Vol] 8.98 10*3/uL Normal 3.70-11.00 [facility] Comment on above: Order Comment: Speci men Type: BLOOD SPECIMENOrdering Facility: [facility] Address: [address] [place] [address] Performed By: #### 5 8410-2 ####[facility] LABIA [id number] [place] [address] [place] CNOVon 09-23-2021 CNOV Normal [facility] Comprehensive metabolic 2000 panelon 09-23-2021 Albumin [Mass/Vol] 3.6 g/dL Low 3.9-4.9 [facility] Comment on above: Order Comment: Speci men Type: BLOOD SPECIMENOrdering Facility: [facility] Address: [address] [place] [address] Performed By: #### 2 4323-8, 75905-4, 28021-8 ####[facility] LABIA [id number] [place] [address] [place] ALP [Catalytic activity/Vol] 93 U/L Normal 38-113 [facility] Comment on above: Order Comment: Speci men Type: BLOOD SPECIMENOrdering Facility: [facility] Address: [address] [place], [place] [address] Performed By: #### 2 4323-8, 17113-8, 46502-2 ####[facility] LABCLIA [id number] [place] [address] [place] ALT [Catalytic activity/Vol] 112 U/L High 10-54 [facility] Comment on above: Order Comment: Speci men Type: BLOOD SPECIMENOrdering Facility: [facility] Address: [address] [place], [place] [address] Performed By: #### 2 4323-8, 24091-2, 78231-2 ####[facility] LABIA [id number] [place] [address] [place] Anion gap [Moles/Vol] 10 mmol/L Normal 9-18 [facility] Comment on above: Order Comment: Speci men Type: BLOOD SPECIMENOrdering Facility: [facility] Address: [address] [place], [place] [address] Performed By: #### 2 4323-8, 28254-4, ####[facility] LABIA [id number] [place] [address] [place] AST [Catalytic activity/Vol] 52 U/L High 14-40 [facility] Comment on above: Order Comment: Speci men Type: BLOOD SPECIMENOrdering Facility: [facility] Address: [address] [place] [address] Performed By: #### 2 4323-8, 54701-7, 70349-5 ####[facility] LABIA [id number] [place] [id number] [place] Bilirubin [Mass/Vol] 0.4 mg/dL Normal 0.2-1.3 [facility] Comment on above: Order Comment: Speci men Type: BLOOD SPECIMENOrdering Facility: [facility] Address: [address] [place] [address] Performed By: #### 2 4323-8, 62973-6, 62871-5 ####[facility] LABCLIA [id number] [place] [address] [place] Calcium [Mass/Vol] 8.8 mg/dL Normal 8.5-10.2 [facility] Comment on above: Order Comment: Speci men Type: BLOOD SPECIMENOrdering Facility: [facility] Address: [address] [place], [place] [address] Performed By: #### 2 4323-8, 10031-6, ####[facility] LABCLIA [id number] [place] [address] [place] Chloride [Moles/Vol] 101 mmol/L Normal 97-105 [facility] Comment on above: Order Comment: Speci men Type: BLOOD SPECIMENOrdering Facility: [facility] Address: [address] [place], [place] [address] Performed By: #### 2 4323-8, 08799-2, ####[facility] LABCLIA [id number] [place] [address] [place] CO2 [Moles/Vol] 31 mmol/L High 22-30 [facility] Comment on above: Order Comment: Speci men Type: BLOOD SPECIMENOrdering Facility: [facility] Address: [address] [place] [address] Performed By: #### 2 4323-8, 97436-4, ####[facility] LABCLIA [id number] [place] [address] [place] Creatinine [Mass/Vol] 1.24 mg/dL High 0.73-1.22 [facility] Comment on above: Order Comment: Speci men Type: BLOOD SPECIMENOrdering Facility: [facility] Address: [address] [place], [place] [address] Performed By: #### 2 4323-8, 45556-4, 39717-8 ####[facility] LABCLIA [id number] [place] [address] [place] ESTIMATED GLOMERULAR FILTRATION RATE 68 mL/min/1.73m??? Normal >=60 [facility] Comment on above: Order Comment: Aaliyah gibson Type: BLOOD SPECIMENOrdering Facility: [facility] Address: [address] [place] [address] Result Comment: Laurita mated Glomerular Filtration Rate [...] actual GFR. Performed By: #### 2 4323-8, 40789-5, 39672-1 ####[facility] LABCLIA [id number] [place] [address] [place] Glucose [Mass/Vol] 176 mg/dL High 74-99 [facility] Comment on above: Order Comment: Aaliyah gibson Type: BLOOD SPECIMENOrdering Facility: [facility] Address: [address] [place] [address] Result Comment: The [place] Diabetes [employer] (ADA) provides guidance for cutoff [...] Standards of Medical Care in Diabetes 2016, [place] [employer]. Diabetes Care. 2016.39(Suppl 1). Performed By: #### 2 4323-8, 39688-4, 42943-9 ####[facility] LABCLIA [id number] [address] [address] [place] Potassium [Moles/Vol] 3.2 mmol/L Low 3.7-5.1 [facility] Comment on above: Order Comment: Speci men Type: BLOOD SPECIMENOrdering Facility: [facility] Address: [address] [place], [place] [address] Performed By: #### 2 4323-8, 89669-8, ####[facility] LABCLIA [id number] [place] [address] [place] Protein [Mass/Vol] 6.0 g/dL Low 6.3-8.0 [facility] Comment on above: Order Comment: Speci men Type: BLOOD SPECIMENOrdering Facility: [facility] Address: [address] [place], [place] [address] Performed By: #### 2 4323-8, 78471-8, ####[facility] LABCLIA [id number] [place] [address] [place] Sodium [Moles/Vol] 142 mmol/L Normal 136-144 [facility] Comment on above: Order Comment: Speci men Type: BLOOD SPECIMENOrdering Facility: [facility] Address: [address] [place] [address] Performed By: #### 2 4323-8, 72146-0, ####[facility] LABCLIA [id number] [address] [address] [place] Urea nitrogen [Mass/Vol] 24 mg/dL Normal 9-24 [facility] Comment on above: Order Comment: Speci men Type: BLOOD SPECIMENOrdering Facility: [facility] Address: [address] [place], [place] [address] Performed By: #### 2 4323-8, 37932-2, 04826-6 ####[facility] LABCLIA [id number] [place] [address] [place] ECG COMPLETEon 09-23-2021 ECG COMPLETE Normal [facility] Lipid 1996 panelon 2 Cholesterol [Mass/Vol] 152 mg/dL Normal <200 [facility] Comment on above: Order Comment: Speci men Type: BLOOD SPECIMENOrdering Facility: [facility] Address: [address] [place], [place] [address] Result Comment: <200 mg/dL, Desirable 200-239 mg/dL, Borderline high>239 mg/dL, High Performed By: #### 3 016-3, 62986-1, 34870-2, ####[facility] LABCLIA [id number] [address] [place] Cholesterol in HDL [Mass/Vol] 55 mg/dL Normal >39 [facility] Comment on above: Order Comment: Speci men Type: BLOOD SPECIMENOrdering Facility: [facility] Address: [address] [place] [address] Result Comment: 40-5 9 mg/dL, Acceptable>59 mg/dL, High: Negative risk factor for coronary heart disease<40 mg/dL, Low: Positive risk factor for coronary heart disease Performed By: #### 3 016-3, 98080-2, 87579-1, ####[facility] LABCLIA [id number] [address] [place] Cholesterol in LDL [Mass/Vol] 87 mg/dL Normal <100 [facility] Comment on above: Order Comment: Speci men Type: BLOOD SPECIMENOrdering Facility: [facility] Address: [address] [place] [address] Result Comment: <100 mg/dL, Optimal 100-129 mg/dL, Near optimal/above optimal 130-159 mg/dL, Borderline high 160-189 mg/dL, High>189 mg/dL, Very highSecondary prevention optimal LDL Cholesterol levels are recommended to be < 70 mg/dL Performed By: #### 3 016-3, 99391-0, 43577-5, ####[facility] LABCLIA [id number] [address] [place] Cholesterol in LDL/Cholesterol in HDL [Mass ratio] 1.58 {ratio} Normal <2.54 [facility] Comment on above: Order Comment: Speci men Type: BLOOD SPECIMENOrdering Facility: [facility] Address: [address] [place] [address] Result Comment: Refe yakelince:1. National Cholesterol Education Program ATP III Guideline At-A-Glance Quick Desk Reference: National Heart, Lung, and Blood [place]. National Institutes of Health. 2001: NIH Publication No. 01-3305.2. An International Atherosclerosis Society position paper: global recommendations for the management of dyslipidemia: executive summary, Atherosclerosis. 2014: 232(2):410-413. Performed By: #### 3 016-3, 88341-2, 60950-8, ####[facility] LABIA [id number] [place] [address] [place] Cholesterol in VLDL [Mass/Vol] 10 mg/dL Normal <30 [facility] Comment on above: Order Comment: Speci men Type: BLOOD SPECIMENOrdering Facility: [facility] Address: [address] [place] [address] Performed By: #### 3 016-3, 03535-3, 30979-2, ####[facility] LABIA [id number] [address] [place] Cholesterol non HDL [Mass/Vol] 97 mg/dL Normal <130 [facility] Comment on above: Order Comment: Speci men Type: BLOOD SPECIMENOrdering Facility: [facility] Address: [address] [place] [address] Result Comment: <130 mg/dL, Optimal 130-159 mg/dL, Near optimal/above optimal 160-189 mg/dL, Borderline high 190-219 mg/dL, High>219 mg/dL, Very highSecondary prevention optimal non HDL Cholesterol levels are recommended to be <100 mg/dL Performed By: #### 3 016-3, 62663-9, 86700-1, ####[facility] LABCLIA [id number] [place] [address] [place] Cholesterol.total/Urvashi sterol in HDL [Mass ratio] 2.76 {ratio} Normal <5.10 [facility] Comment on above: Order Comment: Speci men Type: BLOOD SPECIMENOrdering Facility: [facility] Address: [address] [place] [address] Performed By: #### 3 016-3, 67351-5, 21313-1, ####[facility] LABCLIA [id number] [address] [place] FASTING TIME 9 hrs Normal [facility] Comment on above: Order Comment: Speci men Type: BLOOD SPECIMENOrdering Facility: [facility] Address: [address] [place] [address] Performed By: #### 3 016-3, 76717-0, 84288-5, ####[facility] LABCLIA [id number] [address] [place] [facility] Triglyceride [Mass/Vol] 51 mg/dL Normal <150 [facility] Comment on above: Order Comment: Speci men Type: BLOOD SPECIMENOrdering Facility: [facility] Address: [address] [place] [address] Result Comment: <150 mg/dL, Normal 150-199 mg/dL, Borderline high 200-499 mg/dL, High>499 mg/dL, Very high Performed By: #### 3 016-3, 07530-8, 70579-8, ####[facility] LABCLIA [id number] [place] [id number] [place] Magnesium SerPl-mCncon 07-19 -2022 Magnesium [Mass/Vol] 2.0 mg/dL Normal 1.7-2.3 [facility] Comment on above: Order Comment: Speci men Type: BLOOD SPECIMENOrdering Facility: [facility] Address: [address] [place] [address] Performed By: #### 3 016-3, 47249-1, 07113-1, 06676-5 ####[facility] LABCLIA [id number] [place] [address] [place] Magnesium [Mass/Vol] 2.1 mg/dL Normal 1.7-2.3 [facility] Comment on above: Order Comment: Speci men Type: BLOOD SPECIMENOrdering Facility: [facility] Address: [address] [place] [address] Performed By: #### 2 4323-8, 35993-9, ####[facility] LABCLIA [id number] [place] [address] [place] NT-proBNP [facility] 09-23 Natriuretic peptide.B prohormone N-Terminal [Mass/Vol] 1946 pg/mL High <125 [facility] Comment on above: Order Comment: Speci men Type: BLOOD SPECIMENOrdering Facility: [facility] Address: [address] [place] [address] Performed By: #### 2 4323-8, 96884-8, ####[facility] LABCLIA [id number] [place] [address] [place] POTASSIUM BLDon 09-23-2021 Potassium [Moles/Vol] 3.4 mmol/L Low 3.7-5.1 [facility] Comment on above: Order Comment: Speci men Type: BLOOD SPECIMENOrdering Facility: [facility] Address: [address] [place] [address] Performed By: #### K 1 ####[facility] LABCLIA [id number] [address] [place] Potassium [Moles/Vol] 3.5 mmol/L Low 3.7-5.1 [facility] Comment on above: Order Comment: Speci men Type: BLOOD SPECIMENOrdering Facility: [facility] Address: [address] [place] [address] Performed By: #### K 1 ####[facility] LABCLIA [id number] [address] PT panel Coag (PPP)on 2021 INR Coag (PPP) [Relative time] 1.2 {INR} Normal 0.9-1.3 [facility] Comment on above: Order Comment: Speci paige Type: BLOOD SPECIMENOrdering Facility: [facility] Address: [address] [place] [address] Result Comment: Constanza min K Antagonist (VKA) Therapeutic Range: INR 2 to 3 (Target INR of 2.5)Note: For patients treated with VKA drugs, such as warfarin, the [place] [employer] 2012 Guideline recommends [...] al. Chest 2012, 141:7S-47SNishimura RA, et al. [facility] 2017, 70: 252-289 Performed By: #### P [facility], 73741-5 ####[facility] LABCLIA [id number] [place] [address] [place] PT Coag (PPP) [Time] 12.3 s Normal 9.7-13.0 [facility] Comment on above: Order Comment: Speci men Type: BLOOD SPECIMENOrdering Facility: [facility] Address: [address] [place] [address] Performed By: #### P TTA, 93378-0 ####[facility] LABCLIA [id number] [place] [address] [place] INR Coag (PPP) [Relative time] 1.1 {INR} Normal 0.9-1.3 [facility] Comment on above: Order Comment: Speci men Type: BLOOD SPECIMENOrdering Facility: [facility] Address: [address] [place] [address] Result Comment: Constanza min K Antagonist (VKA) Therapeutic Range: INR 2 to 3 (Target INR of 2.5)Note: For patients treated with VKA drugs, such as warfarin, the [place] [employer] 2012 Guideline recommends [...] al. Chest 2012, 141:7S-47SNishnini RA, et al. [facility] 2017, 70: 252-289 Performed By: #### 3 4528-0, 31291-3 ####[facility] LABCLIA [id number] [place] [address] [place] PT Coag (PPP) [Time] 11.9 s Normal 9.7-13.0 [facility] Comment on above: Order Comment: Speci men Type: BLOOD SPECIMENOrdering Facility: [facility] Address: [address] [place] [address] Performed By: #### 3 4528-0, 73432-8 ####[facility] [id number] [address] PTT, ANTICOAGULANT THERAPYon 09-23-2021 aPTT Coag (PPP) [Time] s High 23.0-32.4 [facility] Comment on above: Order Comment: Speci men Type: BLOOD SPECIMENOrdering Facility: [facility] Address: [address] [place] [address] Result Comment: Samp le checked for clot.Result rechecked. Performed By: #### P TTAC ####[facility] [id number] [address] aPTT Coag (PPP) [Time] s High 23.0-32.4 [facility] Comment on above: Order Comment: Speci men Type: BLOOD SPECIMENOrdering Facility: [facility] Address: [address] [place] [address] Result Comment: Samp le checked for clot.Result rechecked. Performed By: #### P TTAC ####[facility] [id number] [address] [place] [facility] aPTT Coag (PPP) [Time] 73.9 s High 23.0-32.4 [facility] Comment on above: Order Comment: Speci men Type: BLOOD SPECIMENOrdering Facility: [facility] Address: [address] [place] [address] Performed By: #### P TTAC, 29508-4 ####[facility] [id number] [address] [facility] SARS-CoV-2 RNA Resp Ql SANDOVAL+p robeon 09-23-2021 SARS-CoV-2 (COVID-19) RNA SANDOVAL+probe Ql (Resp) COVID 19 RESULT: SARS-CoV-2 (Agent of COVID-19) Not Detected by RT-PCR or equivalent method. This test has been authorized by FDA under an Emergency Use Authorization (EUA). Normal [facility] Comment on above: Performed By: #### 9 4500-6 ####[facility] LABCLIA [id number] [place] [address] [place] TSH SerPl-aCncon 09-23-2021 TSH Qn 1.870 m[IU]/L Normal 0.270-4.20 0 [facility] Comment on above: Order Comment: Speci men Type: BLOOD SPECIMENOrdering Facility: [facility] Address: [address] [place] [address] Performed By: #### 3 016-3, 55250-6, 30920-7, 47830-9 ####[facility] LABIA [id number] [place] [address] [place] aPTT PPPon 09-23-2021 aPTT Coag (PPP) [Time] 25.4 s Normal 23.0-32.4 [facility] Comment on above: Order Comment: Speci men Type: BLOOD SPECIMENOrdering Facility: [facility] Address: [address] [place] [address] Performed By: #### 3 4528-0, 95939-6 ####[facility] [id number] [place] [address] [place] CNOVon 09-22-2021 CNOV Normal [facility] HISTORY PHYSICALon HISTORY PHYSICAL Normal [facility] NURSING PROGon 09-22-2021 NURSING PROG Normal [facility] XR CHEST 1V FRONTAL PORTon 0 09-22-2021 XR CHEST 1V FRONTAL PORT Normal [facility] CNPNon 09-19-2021 CNPN Normal [facility] CNPNon 09-16-2021 CNPN Normal [facility] CBC W Auto Differential pane l (Bld)on 09-11-2021 Basophils (Bld) [#/Vol] 10*3/uL Normal <0.11 [facility] Comment on above: Order Comment: Speci men Type: BLOOD SPECIMENOrdering Facility: [facility] Address: [address] [address] [place], [place] [address] Performed By: #### 5 7021-8 ####[facility] [id number] [place] [address] [place] Basophils/100 WBC (Bld) 0.3 % Normal C [facility] Comment on above: Order Comment: Speci men Type: BLOOD SPECIMENOrdering Facility: [facility] Address: [address] [place] [address] Performed By: #### 5 7021-8 ####[facility] [id number] [place] [address] [place] Differential cell count method Nom (Bld) Auto Normal [facility] Comment on above: Order Comment: Speci men Type: BLOOD SPECIMENOrdering Facility: [facility] Address: [address] [place], [place] [address] Performed By: #### 5 7021-8 ####[facility] [id number] [place] [address] [place] Eosinophils (Bld) [#/Vol] 0.03 10*3/uL Normal <0.46 [facility] Comment on above: Order Comment: Speci men Type: BLOOD SPECIMENOrdering Facility: [facility] Address: [address] [place], [place] [address] Performed By: #### 5 7021-8 ####[facility] [id number] [place] [address] Eosinophils/100 WBC (Bld) 0.5 % Normal [facility] Comment on above: Order Comment: Speci men Type: BLOOD SPECIMENOrdering Facility: [facility] Address: [address] [place], [place] [address] Performed By: #### 5 7021-8 ####[facility] [id number] [place] [address] [place] Erythrocyte distribution width (RBC) [Ratio] 15.5 % High 11.5-15.0 [facility] Comment on above: Order Comment: Speci men Type: BLOOD SPECIMENOrdering Facility: [facility] Address: [address] [place] [address] Performed By: #### 5 7021-8 ####[facility] [id number] [place] [address] [place] Hematocrit (Bld) [Volume fraction] 42.0 % Normal 39.0-51.0 [facility] Comment on above: Order Comment: Speci men Type: BLOOD SPECIMENOrdering Facility: [facility] Address: [address] [place] [address] Performed By: #### 5 7021-8 ####[facility] [id number] [place] [address] [place] Hemoglobin (Bld) [Mass/Vol] 13.5 g/dL Normal 13.0-17.0 [facility] Comment on above: Order Comment: Speci men Type: BLOOD SPECIMENOrdering Facility: [facility] Address: [address] [place] [address] Performed By: #### 5 7021-8 ####[facility] [id number] [place] [address] [facility] IMMATURE GRAN % 0.3 % Normal [facility] Comment on above: Order Comment: Speci men Type: BLOOD SPECIMENOrdering Facility: [facility] Address: [address] [place] [address] Performed By: #### 5 7021-8 ####[facility] [id number] [place] [address] [place] IMMATURE GRAN ABS <0.03 Normal <0.10 [facility] Comment on above: Order Comment: Speci men Type: BLOOD SPECIMENOrdering Facility: [facility] Address: [address] [place], [place] [address] Performed By: #### 5 7021-8 ####[facility] [id number] [place] [address] [place] Lymphocytes (Bld) [#/Vol] 1.12 10*3/uL Normal 1.00-4.00 [facility] Comment on above: Order Comment: Speci men Type: BLOOD SPECIMENOrdering Facility: [facility] Address: [address] [place], [place] [address] Performed By: #### 5 7021-8 ####[facility] [id number] [place] [address] [place] Lymphocytes/100 WBC (Bld) 17.2 % Normal [facility] Comment on above: Order Comment: Speci men Type: BLOOD SPECIMENOrdering Facility: [facility] Address: [address] [place], [place] [address] Performed By: #### 5 7021-8 ####[facility] [id number] [place] [address] [place] MCH (RBC) [Entitic mass] 29.6 pg Normal 26.0-34.0 [facility] Comment on above: Order Comment: Speci men Type: BLOOD SPECIMENOrdering Facility: [facility] Address: [address] [place], [place] [address] Performed By: #### 5 7021-8 ####[facility] [id number] [place] [address] [place] MCHC (RBC) [Mass/Vol] 32.1 g/dL Normal 30.5-36.0 [facility] Comment on above: Order Comment: Speci men Type: BLOOD SPECIMENOrdering Facility: [facility] Address: [address] [place], [place] [address] Performed By: #### 5 7021-8 ####[facility] [id number] [place] [address] [place] MCV (RBC) [Entitic vol] 92.1 fL Normal 80.0-100.0 C [facility] Comment on above: Order Comment: Speci men Type: BLOOD SPECIMENOrdering Facility: [facility] Address: [address] [place], [place] [address] Performed By: #### 5 7021-8 ####[facility] [id number] [place] [address] [place] Monocytes (Bld) [#/Vol] 0.53 10*3/uL Normal <0.87 [facility] Comment on above: Order Comment: Speci men Type: BLOOD SPECIMENOrdering Facility: [facility] Address: [address] [place], [place] [address] Performed By: #### 5 7021-8 ####[facility] [id number] [place] [address] [place] Monocytes/100 WBC (Bld) 8.1 % Normal C [facility] Comment on above: Order Comment: Speci men Type: BLOOD SPECIMENOrdering Facility: [facility] Address: [address] [place], [place] [address] Performed By: #### 5 7021-8 ####[facility] [id number] [place] [address] [place] Neutrophils (Bld) [#/Vol] 4.81 10*3/uL Normal 1.45-7.50 [facility] Comment on above: Order Comment: Speci men Type: BLOOD SPECIMENOrdering Facility: [facility] Address: [address] [place], [place] [address] Performed By: #### 5 7021-8 ####[facility] [id number] [place] [address] [place] Neutrophils/100 WBC (Bld) 73.6 % Normal [facility] Comment on above: Order Comment: Speci men Type: BLOOD SPECIMENOrdering Facility: [facility] Address: [address] [place] [address] Performed By: #### 5 7021-8 ####[facility] [id number] [place] [address] [place] Nucleated RBC (Bld) [#/Vol] 10*3/uL Normal <0.01 [facility] Comment on above: Order Comment: Speci men Type: BLOOD SPECIMENOrdering Facility: [facility] Address: [address] [place], [place] [address] Performed By: #### 5 7021-8 ####[facility] [id number] [place] [address] [place] Nucleated RBC/100 WBC (Bld) [Ratio] 0.0 /100 WBC Normal [facility] Comment on above: Order Comment: Speci men Type: BLOOD SPECIMENOrdering Facility: [facility] Address: [address] [place], [place] [address] Performed By: #### 5 7021-8 ####[facility] [id number] [place] [address] [place] Platelet mean volume (Bld) [Entitic vol] 9.7 fL Normal 9.0-12.7 [facility] Comment on above: Order Comment: Speci men Type: BLOOD SPECIMENOrdering Facility: [facility] Address: [address] [place], [place] [address] Performed By: #### 5 7021-8 ####[facility] [id number] [place] [address] [place] Platelets (Bld) [#/Vol] 267 10*3/uL Normal 150-400 [facility] Comment on above: Order Comment: Speci men Type: BLOOD SPECIMENOrdering Facility: [facility] Address: [address] [place], [place] [address] Performed By: #### 5 7021-8 ####[facility] [id number] [place] [address] [place] RBC (Bld) [#/Vol] 4.56 10*6/uL Normal 4.20-6.00 [facility] Comment on above: Order Comment: Speci men Type: BLOOD SPECIMENOrdering Facility: [facility] Address: [address] [place], [place] [address] Performed By: #### 5 7021-8 ####[facility] [id number] [place] [address] [place] WBC (Bld) [#/Vol] 6.53 10*3/uL Normal 3.70-11.00 [facility] Comment on above: Order Comment: Speci men Type: BLOOD SPECIMENOrdering Facility: [facility] Address: [address] [place], [place] [address] Performed By: #### 5 7021-8 ####[facility] [id number] [place] [address] [place] CNNURSEon 09-11-2021 CNNURSE Normal [facility] CNOVSPon 09-11-2021 CNOVSP Normal [facility] Comprehensive metabolic 2000 panelon 09-11-2021 Albumin [Mass/Vol] 4.1 g/dL Normal 3.9-4.9 [facility] Comment on above: Order Comment: Speci men Type: BLOOD SPECIMENOrdering Facility: [facility] Address: [address] [place], [place] [address] Performed By: #### 3 084-1, 32434-1, 41436-8 ####[facility] [id number] [place] [address] [place] ALP [Catalytic activity/Vol] 80 U/L Normal 38-113 [facility] Comment on above: Order Comment: Speci men Type: BLOOD SPECIMENOrdering Facility: [facility] Address: [address] [place], [place] [address] Performed By: #### 3 084-1, 22042-2, ####[facility] [id number] [place] [address] [place] ALT [Catalytic activity/Vol] 82 U/L High 10-54 [facility] Comment on above: Order Comment: Speci men Type: BLOOD SPECIMENOrdering Facility: [facility] Address: [address] [place], [place] [address] Performed By: #### 3 084-1, 32478-7, ####[facility] [id number] [place] [address] [place] Anion gap [Moles/Vol] 12 mmol/L Normal 9-18 [facility] Comment on above: Order Comment: Speci men Type: BLOOD SPECIMENOrdering Facility: [facility] Address: [address] [place], [place] [address] Performed By: #### 3 084-1, , ####[facility] [id number] [place] [address] [place] AST [Catalytic activity/Vol] 58 U/L High 14-40 [facility] Comment on above: Order Comment: Speci men Type: BLOOD SPECIMENOrdering Facility: [facility] Address: [address] [place], [place] [address] Performed By: #### 3 084-1, , ####[facility] [id number] [place] [address] [place] Bilirubin [Mass/Vol] 0.5 mg/dL Normal 0.2-1.3 [facility] Comment on above: Order Comment: Speci men Type: BLOOD SPECIMENOrdering Facility: [facility] Address: [address] [place], [place] [address] Performed By: #### 3 084-1, 29782-6, ####[facility] [id number] [place] [address] [place] Calcium [Mass/Vol] 9.4 mg/dL Normal 8.5-10.2 [facility] Comment on above: Order Comment: Speci men Type: BLOOD SPECIMENOrdering Facility: [facility] Address: [address] [place] [address] Performed By: #### 3 084-1, , ####[facility] [id number] [place] [address] [place] Chloride [Moles/Vol] 103 mmol/L Normal 97-105 [facility] Comment on above: Order Comment: Speci men Type: BLOOD SPECIMENOrdering Facility: [facility] Address: [address] [place], [place] [address] Performed By: #### 3 084-1, , ####[facility] [id number] [place] [address] [place] CO2 [Moles/Vol] 29 mmol/L Normal 22-30 [facility] Comment on above: Order Comment: Speci men Type: BLOOD SPECIMENOrdering Facility: [facility] Address: [address] [place], [place] [address] Performed By: #### 3 084-1, , ####[facility] [id number] [place] [address] [place] Creatinine [Mass/Vol] 1.18 mg/dL Normal 0.73-1.22 [facility] Comment on above: Order Comment: Speci men Type: BLOOD SPECIMENOrdering Facility: [facility] Address: [address] [place], [place] [address] Performed By: #### 3 084-1, 59517-7, ####[facility] [id number] [address] [place] ESTIMATED GLOMERULAR FILTRATION RATE 72 mL/min/1.73m??? Normal >=60 [facility] Comment on above: Order Comment: Aaliyah gibson Type: BLOOD SPECIMENOrdering Facility: [facility] Address: [address] [place], [place] [address] Result Comment: Laurita mated Glomerular Filtration Rate [...] actual GFR. Performed By: #### 3 084-1, 25868-4, 48466-6 ####[facility] [id number] [place] [address] [place] Glucose [Mass/Vol] 130 mg/dL High 74-99 [facility] Comment on above: Order Comment: Aaliyah paige Type: BLOOD SPECIMENOrdering Facility: [facility] Address: [address] [place], [place] [address] Result Comment: The [place] [employer] (ADA) provides guidance for cutoff [...] Standards of Medical Care in Diabetes 2016, [place] [employer]. Diabetes Care. 2016.39(Suppl 1). Performed By: #### 3 084-1, 23508-9, 84864-7 ####[facility] [id number] [place] [address] [place] Potassium [Moles/Vol] 3.3 mmol/L Low 3.7-5.1 [facility] Comment on above: Order Comment: Speci men Type: BLOOD SPECIMENOrdering Facility: [facility] Address: [address] [place], [place] [address] Performed By: #### 3 084-1, 32745-0, ####[facility] [id number] [place] [address] [place] Protein [Mass/Vol] 6.9 g/dL Normal 6.3-8.0 [facility] Comment on above: Order Comment: Speci men Type: BLOOD SPECIMENOrdering Facility: [facility] Address: [address] [place], [place] [address] Performed By: #### 3 084-1, 70659-9, ####[facility] [id number] [place] [address] [place] Sodium [Moles/Vol] 144 mmol/L Normal 136-144 [facility] Comment on above: Order Comment: Speci men Type: BLOOD SPECIMENOrdering Facility: [facility] Address: [address] [place], [place] [address] Performed By: #### 3 084-1, 27658-2, 33683-9 ####[facility] [id number] [place] [address] [place] Urea nitrogen [Mass/Vol] 19 mg/dL Normal 9-24 [facility] Comment on above: Order Comment: Speci men Type: BLOOD SPECIMENOrdering Facility: [facility] Address: [address] [place] [address] Performed By: #### 3 084-1, 96137-8, 39122-9 ####[facility] [id number] [place] [address] LDH SerPl-cCncon 09-11-2021 LDH [Catalytic activity/Vol] 297 U/L High 135-225 [facility] Comment on above: Order Comment: Aaliyah gibson Type: BLOOD SPECIMENOrdering Facility: [facility] Address: [address] [place] [address] Performed By: #### 2 532-0 ####[facility] [id number] [place] [address] Magnesium SerPl-mCncon 09-11 Magnesium [Mass/Vol] 2.1 mg/dL Normal 1.7-2.3 [facility] Comment on above: Order Comment: Ronyi paige Type: BLOOD SPECIMENOrdering Facility: [facility] Address: [address] [place] [address] Performed By: #### 3 084-1, 28107-1, 87195-4 ####[facility] [id number] [place] [address] PT panel Coag (PPP)on 2021 INR Coag (PPP) [Relative time] 1.1 {INR} Normal 0.9-1.3 [facility] Comment on above: Order Comment: Aaliyah gibson Type: BLOOD SPECIMENOrdering Facility: [facility] Address: [address] [place] [address] Result Comment: Constanza min K Antagonist (VKA) Therapeutic Range: INR 2 to 3 (Target INR of 2.5)Note: For patients treated with VKA drugs, such as warfarin, the [place] [employer] 2012 Guideline recommends [...] al. Chest 2012, 141:7S-47SNishimkhalida RA, et al. [facility] 2017, 70: 252-289 Performed By: #### 3 4528-0, 57229-0 ####[facility] [id number] [place] [address] [place] PT Coag (PPP) [Time] 11.3 s Normal 9.7-13.0 [facility] Comment on above: Order Comment: Speci men Type: BLOOD SPECIMENOrdering Facility: [facility] Address: [address] [place] [address] Performed By: #### 3 4528-0, 08110-3 ####[facility] [id number] [place] [address] [place] Phosphate SerPl-mCncon 09-11 Phosphate [Mass/Vol] 3.5 mg/dL Normal 2.7-4.8 [facility] Comment on above: Order Comment: Ronyi paige Type: BLOOD SPECIMENOrdering Facility: [facility] Address: [address] [place] [address] Performed By: #### 2 777-1 ####[facility] [id number] [place] [address] [place] Urate SerPl-mCncon Urate [Mass/Vol] 9.2 mg/dL High 4.0-8.1 [facility] Comment on above: Order Comment: Speci men Type: BLOOD SPECIMENOrdering Facility: [facility] Address: [address] [place] [address] Performed By: #### 3 084-1, 83540-6, 20600-0 ####[facility] [id number] [place] [address] [place] aPTT PPPon 09-11-2021 aPTT Coag (PPP) [Time] 28.1 s Normal 23.0-32.4 [facility] Comment on above: Order Comment: Speci men Type: BLOOD SPECIMENOrdering Facility: [facility] Address: [address] [place] [address] Performed By: #### 3 4528-0, 84027-1 ####[facility] [id number] [place] CNPNon 09-05-2021 CNPN Normal [facility] CBC panel Auto (Bld)on 09-04 Erythrocyte distribution width (RBC) [Ratio] 15.2 % High 11.5-15.0 [facility] Comment on above: Order Comment: Speci men Type: BLOOD SPECIMENOrdering Facility: [facility] Address: [address] [place] [address] Performed By: #### 5 8410-2 ####[facility] [id number] [address] [place] Hematocrit (Bld) [Volume fraction] 40.7 % Normal 39.0-51.0 [facility] Comment on above: Order Comment: Speci men Type: BLOOD SPECIMENOrdering Facility: [facility] Address: [address] [place] [address] Performed By: #### 5 8410-2 ####[facility] [id number] [place] [address] [place] Hemoglobin (Bld) [Mass/Vol] 13.1 g/dL Normal 13.0-17.0 [facility] Comment on above: Order Comment: Speci men Type: BLOOD SPECIMENOrdering Facility: [facility] Address: [address] [place], [place] [address] Performed By: #### 5 8410-2 ####[facility] [id number] [address] MCH (RBC) [Entitic mass] 29.5 pg Normal 26.0-34.0 [facility] Comment on above: Order Comment: Speci men Type: BLOOD SPECIMENOrdering Facility: [facility] Address: [address] [place], [place] [address] Performed By: #### 5 8410-2 ####[facility] [id number] [address] [place] MCHC (RBC) [Mass/Vol] 32.2 g/dL Normal 30.5-36.0 [facility] Comment on above: Order Comment: Speci men Type: BLOOD SPECIMENOrdering Facility: [facility] Address: [address] [place], [place] [address] Performed By: #### 5 8410-2 ####[facility] [id number] [address] [place] MCV (RBC) [Entitic vol] 91.7 fL Normal 80.0-100.0 C [facility] Comment on above: Order Comment: Speci men Type: BLOOD SPECIMENOrdering Facility: [facility] Address: [address] [place] [address] Performed By: #### 5 8410-2 ####[facility] [id number] [address] [place] Nucleated RBC (Bld) [#/Vol] 10*3/uL Normal <0.01 [facility] Comment on above: Order Comment: Speci men Type: BLOOD SPECIMENOrdering Facility: [facility] Address: [address] [place], [place] [address] Performed By: #### 5 8410-2 ####[facility] LABCLIA [id number] [place] [address] [place] Platelet mean volume (Bld) [Entitic vol] 10.1 fL Normal 9.0-12.7 [facility] Comment on above: Order Comment: Speci men Type: BLOOD SPECIMENOrdering Facility: [facility] Address: [address] [place], [place] [address] Performed By: #### 5 8410-2 ####[facility] [id number] [place] [address] [place] Platelets (Bld) [#/Vol] 214 10*3/uL Normal 150-400 [facility] Comment on above: Order Comment: Speci men Type: BLOOD SPECIMENOrdering Facility: [facility] Address: [address] [place], [place] [address] Performed By: #### 5 8410-2 ####[facility] [id number] [place] [address] [place] RBC (Bld) [#/Vol] 4.44 10*6/uL Normal 4.20-6.00 [facility] Comment on above: Order Comment: Speci men Type: BLOOD SPECIMENOrdering Facility: [facility] Address: [address] [place], [place] [address] Performed By: #### 5 8410-2 ####[facility] [id number] [place] [address] [place] WBC (Bld) [#/Vol] 6.02 10*3/uL Normal 3.70-11.00 [facility] Comment on above: Order Comment: Speci men Type: BLOOD SPECIMENOrdering Facility: [facility] Address: [address] [place], [place] [address] Performed By: #### 5 8410-2 ####[facility] [id number] [address] [place] CNDSon 09-04-2021 CNDS Normal [facility] CONSULTon 09-04-2021 CONSULT Normal [facility] Comprehensive metabolic 2000 panelon 09-04-2021 Albumin [Mass/Vol] 3.5 g/dL Low 3.9-4.9 [facility] Comment on above: Order Comment: Speci men Type: BLOOD SPECIMENOrdering Facility: [facility] Address: [address] [place], [place] [address] Performed By: #### 2 432-8, ####[facility] LABCLIA [id number] [facility] [place] [address] [place] ALP [Catalytic activity/Vol] 72 U/L Normal 38-113 [facility] Comment on above: Order Comment: Speci men Type: BLOOD SPECIMENOrdering Facility: [facility] Address: [address] [place], [place] [address] Performed By: #### 2 432-8, ####[facility] LABCLIA [id number] [place] [address] [place] ALT [Catalytic activity/Vol] 56 U/L High 10-54 [facility] Comment on above: Order Comment: Speci men Type: BLOOD SPECIMENOrdering Facility: [facility] Address: [address] [place], [place] [address] Performed By: #### 2 4323-8, ####[facility] LABCLIA [id number] [facility] [place] [address] [place] Anion gap [Moles/Vol] 10 mmol/L Normal 9-18 [facility] Comment on above: Order Comment: Speci men Type: BLOOD SPECIMENOrdering Facility: [facility] Address: [address] [place], [place] [address] Performed By: #### 2 4323-8, 72163-9 ####[facility]CL[facility] [id number] [place] [address] [place] AST [Catalytic activity/Vol] 25 U/L Normal 14-40 [facility] Comment on above: Order Comment: Speci men Type: BLOOD SPECIMENOrdering Facility: [facility] Address: [address] [place], [place] [address] Performed By: #### 2 4323-8, 71794-8 ####[facility] [facility] LABCLIA [id number] [place] [address] [place] Bilirubin [Mass/Vol] 0.6 mg/dL Normal 0.2-1.3 [facility] Comment on above: Order Comment: Speci men Type: BLOOD SPECIMENOrdering Facility: [facility] Address: [address] [place] [address] Performed By: #### 2 4323-8, 85329-9 ####[facility] LABCLIA [id number] [place] [address] [place] Calcium [Mass/Vol] 9.3 mg/dL Normal 8.5-10.2 [facility] Comment on above: Order Comment: Speci men Type: BLOOD SPECIMENOrdering Facility: [facility] Address: [address] [place], [place] [address] Performed By: #### 2 4323-8, ####[facility] LABCLIA [id number] [place] [address] [place] Chloride [Moles/Vol] 99 mmol/L Normal 97-105 [facility] Comment on above: Order Comment: Speci men Type: BLOOD SPECIMENOrdering Facility: [facility] Address: [address] [place], [place] [address] Performed By: #### 2 4323-8, 30138-5 ####[facility] LABCLIA [id number] [place] [address] [place] CO2 [Moles/Vol] 30 mmol/L Normal 22-30 [facility] Comment on above: Order Comment: Speci men Type: BLOOD SPECIMENOrdering Facility: [facility] Address: [address] [place], [place] [address] Performed By: #### 2 4328, ####[facility] LABCLIA [id number] [place] [id number] [place] Creatinine [Mass/Vol] 1.03 mg/dL Normal 0.73-1.22 [facility] Comment on above: Order Comment: Speci men Type: BLOOD SPECIMENOrdering Facility: [facility] Address: [address] [place], [place] [address] Performed By: #### 2 4328, ####[facility] LABIA [id number] [place] [address] [place] ESTIMATED GLOMERULAR FILTRATION RATE 85 mL/min/1.73m??? Normal >=60 [facility] Comment on above: Order Comment: Speci men Type: BLOOD SPECIMENOrdering Facility: [facility] Address: [address] [place], [place] [address] Result Comment: Laurita mated Glomerular Filtration Rate [...] actual GFR. Performed By: #### 2 4323-8, ####[facility] LABIA [id number] [place] [id number] [place] Glucose [Mass/Vol] 192 mg/dL High 74-99 [facility] Comment on above: Order Comment: Speci men Type: BLOOD SPECIMENOrdering Facility: [facility] Address: [address] [place], [place] [address] Result Comment: The [place] Diabetes [employer] (ADA) provides guidance for cutoff [...] Standards of Medical Care in Diabetes 2016, [place] [employer]. Diabetes Care. 2016.39(Suppl 1). Performed By: #### 2 4323-8, ####[facility] LABIA [id number] [place] [address] [place] Potassium [Moles/Vol] 3.2 mmol/L Low 3.7-5.1 [facility] Comment on above: Order Comment: Speci men Type: BLOOD SPECIMENOrdering Facility: [facility] Address: [address] [place], [place] [address] Performed By: #### 2 4323-8, ####[facility] LABIA [id number] [place] [address] [place] Protein [Mass/Vol] 6.6 g/dL Normal 6.3-8.0 [facility] Comment on above: Order Comment: Speci men Type: BLOOD SPECIMENOrdering Facility: [facility] Address: [address] [place], [place] [address] Performed By: #### 2 4323-8, ####[facility] LABIA [id number] [place] [address] [place] Sodium [Moles/Vol] 139 mmol/L Normal 136-144 [facility] Comment on above: Order Comment: Speci men Type: BLOOD SPECIMENOrdering Facility: [facility] Address: [address] Performed By: #### 2 4323-8, 85974-6 ####[facility] LABCLIA [id number] [place] [address] [place] Urea nitrogen [Mass/Vol] 15 mg/dL Normal 9-24 [facility] Comment on above: Order Comment: Speci men Type: BLOOD SPECIMENOrdering Facility: [facility] Address: [address] [place] [address] Performed By: #### 2 4323-8, ####[facility] LABCLIA [id number] [place] [address] [place] Magnesium SerPl-mCncon 09-04 Magnesium [Mass/Vol] 2.2 mg/dL Normal 1.7-2.3 [facility] Comment on above: Order Comment: Speci men Type: BLOOD SPECIMENOrdering Facility: [facility] Address: [address] [place], [place] [address] Performed By: #### 2 4323-8, ####[facility] LABIA [id number] [place] [address] [place] PT EDon 09-04-2021 PT ED Normal [facility] CASE MANAGEMon 09-03-2021 CASE MANAGEM Normal [facility] CBC panel Auto (Bld)on 09-03 Erythrocyte distribution width (RBC) [Ratio] 15.4 % High 11.5-15.0 [facility] Comment on above: Order Comment: Speci men Type: BLOOD SPECIMENOrdering Facility: [facility] Address: [address] [place], [place] [address] Performed By: #### 5 8410-2 ####[facility] LABIA [id number] [place] [address] [place] Hematocrit (Bld) [Volume fraction] 43.8 % Normal 39.0-51.0 [facility] Comment on above: Order Comment: Speci men Type: BLOOD SPECIMENOrdering Facility: [facility] Address: [address] [place], [place] [address] Performed By: #### 5 8410-2 ####[facility] [id number] [address] [place] Hemoglobin (Bld) [Mass/Vol] 13.9 g/dL Normal 13.0-17.0 [facility] Comment on above: Order Comment: Speci men Type: BLOOD SPECIMENOrdering Facility: [facility] Address: [address] [place], [place] [address] Performed By: #### 5 8410-2 ####[facility] [id number] [address] [place] MCH (RBC) [Entitic mass] 29.6 pg Normal 26.0-34.0 [facility] Comment on above: Order Comment: Speci men Type: BLOOD SPECIMENOrdering Facility: [facility] Address: [address] [place], [place] [address] Performed By: #### 5 8410-2 ####[facility] [id number] [address] [place] MCHC (RBC) [Mass/Vol] 31.7 g/dL Normal 30.5-36.0 [facility] Comment on above: Order Comment: Speci men Type: BLOOD SPECIMENOrdering Facility: [facility] Address: [address] [place], [place] [address] Performed By: #### 5 8410-2 ####[facility]UN[facility] [id number] [place] [address] [place] MCV (RBC) [Entitic vol] 93.2 fL Normal 80.0-100.0 [facility] Comment on above: Order Comment: Speci men Type: BLOOD SPECIMENOrdering Facility: [facility] Address: [address] [place], [place] [address] Performed By: #### 5 8410-2 ####[facility] LABCLIA [id number] [place] [address] [place] Nucleated RBC (Bld) [#/Vol] 10*3/uL Normal <0.01 [facility] Comment on above: Order Comment: Speci men Type: BLOOD SPECIMENOrdering Facility: [facility] Address: [address] [place], [place] [address] Performed By: #### 5 8410-2 ####[facility] LABIA [id number] [place] [address] [place] Platelet mean volume (Bld) [Entitic vol] 9.9 fL Normal 9.0-12.7 [facility] Comment on above: Order Comment: Speci men Type: BLOOD SPECIMENOrdering Facility: [facility] Address: [address] [place] [address] Performed By: #### 5 8410-2 ####[facility] LABIA [id number] [place] [address] [place] Platelets (Bld) [#/Vol] 212 10*3/uL Normal 150-400 [facility] Comment on above: Order Comment: Speci men Type: BLOOD SPECIMENOrdering Facility: [facility] Address: [address] [place], [place] [address] Performed By: #### 5 8410-2 ####[facility] LABIA [id number] [place] [address] [place] RBC (Bld) [#/Vol] 4.70 10*6/uL Normal 4.20-6.00 [facility] Comment on above: Order Comment: Speci men Type: BLOOD SPECIMENOrdering Facility: [facility] Address: [address] [place], [place] [address] Performed By: #### 5 8410-2 ####[facility] LABIA [id number] [address] OF [place] WBC (Bld) [#/Vol] 5.51 10*3/uL Normal 3.70-11.00 [facility] Comment on above: Order Comment: Speci men Type: BLOOD SPECIMENOrdering Facility: [facility] Address: [address] [place] [address] Performed By: #### 5 8410-2 ####[facility] LABCLIA [id number] [address] OF [facility] Comprehensive metabolic 2000 panelon 09-03-2021 Albumin [Mass/Vol] 3.7 g/dL Low 3.9-4.9 [facility] Comment on above: Order Comment: Speci men Type: BLOOD SPECIMENOrdering Facility: [facility] Address: [address] [place] [address] Performed By: #### 2 4323-8, 69562-7, 72071-6 ####[facility] LABIA [id number] [address] [place] ALP [Catalytic activity/Vol] 83 U/L Normal 38-113 [facility] Comment on above: Order Comment: Speci men Type: BLOOD SPECIMENOrdering Facility: [facility] Address: [address] [place], [place] [address] Performed By: #### 2 4323-8, 26653-4, 84360-0 ####[facility] LABCLIA [id number] [address] [facility] ALT [Catalytic activity/Vol] 65 U/L High 10-54 [facility] Comment on above: Order Comment: Speci men Type: BLOOD SPECIMENOrdering Facility: [facility] Address: [address] [place], [place] [address] Performed By: #### 2 4323-8, 01335-9, 37622-9 ####[facility] LABCLIA [id number] [place] [id number] [place] Anion gap [Moles/Vol] 9 mmol/L Normal 9-18 [facility] Comment on above: Order Comment: Speci men Type: BLOOD SPECIMENOrdering Facility: [facility] Address: [address] [place] [address] Performed By: #### 2 4323-8, 28279-9, 05442-7 ####[facility] LABCLIA [id number] [place] [address] [place] AST [Catalytic activity/Vol] 35 U/L Normal 14-40 [facility] Comment on above: Order Comment: Speci men Type: BLOOD SPECIMENOrdering Facility: [facility] Address: [address] [place], [place] [address] Performed By: #### 2 4323-8, 39683-2, ####[facility] LABCLIA [id number] [place] [address] [place] Bilirubin [Mass/Vol] 0.6 mg/dL Normal 0.2-1.3 [facility] Comment on above: Order Comment: Speci men Type: BLOOD SPECIMENOrdering Facility: [facility] Address: [address] [place], [place] [address] Performed By: #### 2 4323-8, 70744-8, ####[facility] LABCLIA [id number] [place] [id number] [place] Calcium [Mass/Vol] 9.3 mg/dL Normal 8.5-10.2 [facility] Comment on above: Order Comment: Speci men Type: BLOOD SPECIMENOrdering Facility: [facility] Address: [address] [place] [address] Performed By: #### 2 4323-8, 60258-7, 73078-5 ####[facility] LABCLIA [id number] [place] [id number] [place] Chloride [Moles/Vol] 102 mmol/L Normal 97-105 [facility] Comment on above: Order Comment: Speci men Type: BLOOD SPECIMENOrdering Facility: [facility] Address: [address] [place], [place] [address] Performed By: #### 2 4323-8, 52406-3, ####[facility] LABCLIA [id number] [place] [address] [place] CO2 [Moles/Vol] 32 mmol/L High 22-30 [facility] Comment on above: Order Comment: Speci men Type: BLOOD SPECIMENOrdering Facility: [facility] Address: [address] [place] [address] Performed By: #### 2 4323-8, 57460-3, ####[facility] LABCLIA [id number] [place] [address] [place] Creatinine [Mass/Vol] 1.08 mg/dL Normal 0.73-1.22 [facility] Comment on above: Order Comment: Speci men Type: BLOOD SPECIMENOrdering Facility: [facility] Address: [address] [place] [address] Performed By: #### 2 4323-8, 07105-8, ####[facility] LABCLIA [id number] [place] [address] [place] ESTIMATED GLOMERULAR FILTRATION RATE 80 mL/min/1.73m??? Normal >=60 [facility] Comment on above: Order Comment: Speci men Type: BLOOD SPECIMENOrdering Facility: [facility] Address: [address] [place], [place] [address] Result Comment: Laurita mated Glomerular Filtration Rate [...] actual GFR. Performed By: #### 2 4323-8, 51083-0, ####[facility] LABCLIA [id number] [address] [address] [place] Glucose [Mass/Vol] 98 mg/dL Normal 74-99 [facility] Comment on above: Order Comment: Speci men Type: BLOOD SPECIMENOrdering Facility: [facility] Address: [address] [place] [address] Result Comment: The [place] Diabetes [employer] (ADA) provides guidance for cutoff [...] Standards of Medical Care in Diabetes 2016, [place] [employer]. Diabetes Care. 2016.39(Suppl 1). Performed By: #### 2 4323-8, 65843-3, ####[facility] LABCLIA [id number] [address] [address] [place] Potassium [Moles/Vol] 3.8 mmol/L Normal 3.7-5.1 [facility] Comment on above: Order Comment: Speci men Type: BLOOD SPECIMENOrdering Facility: [facility] Address: [address] [place] [address] Performed By: #### 2 4323-8, 06523-3, ####[facility] LABCLIA [id number] [address] [address] [place] Protein [Mass/Vol] 6.9 g/dL Normal 6.3-8.0 [facility] Comment on above: Order Comment: Speci men Type: BLOOD SPECIMENOrdering Facility: [facility] Address: [address] [place], [place] [address] Performed By: #### 2 4323-8, 01708-6, ####[facility] LABCLIA [id number] [place] [address] [place] Sodium [Moles/Vol] 143 mmol/L Normal 136-144 [facility] Comment on above: Order Comment: Speci men Type: BLOOD SPECIMENOrdering Facility: [facility] Address: [address] [place] [address] Performed By: #### 2 4323-8, 27167-1, ####[facility] LABCLIA [id number] [place] [address] [place] Urea nitrogen [Mass/Vol] 16 mg/dL Normal 9-24 [facility] Comment on above: Order Comment: Speci men Type: BLOOD SPECIMENOrdering Facility: [facility] Address: [address] [place] [address] Performed By: #### 2 4323-8, 43677-7, ####[facility] LABCLIA [id number] [address] [place] ED NOTEon 09-03-2021 ED NOTE HNO ID: [id number] Author: Cinthya Gimenez RN Service: Emergency Medicine Author Type: Registered Nurse Type: ED Notes Filed: 09/02/2021 10:46 PM Note Text: Report given to [place] LOPEZ Normal [facility] Iron and Iron binding capaci ty panelon 09-03-2021 Iron [Mass/Vol] 42 ug/dL Normal 41-186 [facility] Comment on above: Order Comment: Speci men Type: BLOOD SPECIMENOrdering Facility: [facility] Address: [address] [place], [place] [address] Performed By: #### 2 4323-8, 08085-0, ####[facility] LABIA [id number] [place] [address] [place] Iron binding capacity [Mass/Vol] 261 ug/dL Normal 232-386 [facility] Comment on above: Order Comment: Speci men Type: BLOOD SPECIMENOrdering Facility: [facility] Address: [address] [place] [address] Performed By: #### 2 4323-8, 75061-7, 59213-4 ####[facility] [id number] [place] [address] [place] Iron/TIBC [Molar ratio] 16.1 % Normal 15.0-57.0 C [facility] Comment on above: Order Comment: Speci men Type: BLOOD SPECIMENOrdering Facility: [facility] Address: [address] [place] [address] Performed By: #### 2 4323-8, 64699-6, ####[facility] [id number] [place] [address] [place] Magnesium SerPl-mCncon 09-03 Magnesium [Mass/Vol] 2.4 mg/dL High 1.7-2.3 [facility] Comment on above: Order Comment: Speci men Type: BLOOD SPECIMENOrdering Facility: [facility] Address: [address] [place], [place] [address] Performed By: #### 2 4323-8, 36716-2, 16428-5 ####[facility] [id number] [place] [id number] [place] THERAPY NTon 09-03-2021 THERAPY NT Normal [facility] THERAPY NT Normal [facility] CBC W Auto Differential pane l (Bld)on 09-02-2021 Basophils (Bld) [#/Vol] 0.03 10*3/uL Normal <0.11 [facility] Comment on above: Order Comment: Speci men Type: BLOOD SPECIMENOrdering Facility: [facility] Address: [address] [place], [place] [address] Performed By: #### 5 7021-8 ####[facility] [id number] [address] [facility] Basophils/100 WBC (Bld) 0.5 % Normal [facility] Comment on above: Order Comment: Speci men Type: BLOOD SPECIMENOrdering Facility: [facility] Address: [address] [place], [place] [address] Performed By: #### 5 7021-8 ####[facility] [id number] [place] [address] [place] Differential cell count method Nom (Bld) Auto Normal [facility] Comment on above: Order Comment: Speci men Type: BLOOD SPECIMENOrdering Facility: [facility] Address: [address] [place], [place] [address] Performed By: #### 5 7021-8 ####[facility] [id number] [place] [address] [place] Eosinophils (Bld) [#/Vol] 10*3/uL Normal <0.46 [facility] Comment on above: Order Comment: Speci men Type: BLOOD SPECIMENOrdering Facility: [facility] Address: [address] [place], [place] [address] Performed By: #### 5 7021-8 ####[facility] [id number] [address] OF [place] Eosinophils/100 WBC (Bld) 0.3 % Normal [facility] Comment on above: Order Comment: Speci men Type: BLOOD SPECIMENOrdering Facility: [facility] Address: [address] [place], [place] [address] Performed By: #### 5 7021-8 ####[facility] [id number] [address] STATES OF [facility] Erythrocyte distribution width (RBC) [Ratio] 15.2 % High 11.5-15.0 [facility] Comment on above: Order Comment: Speci men Type: BLOOD SPECIMENOrdering Facility: [facility] Address: [address] [place] [address] Performed By: #### 5 7021-8 ####[facility] [id number] [place] [address] [address] [facility] Hematocrit (Bld) [Volume fraction] 40.8 % Normal 39.0-51.0 [facility] Comment on above: Order Comment: Speci men Type: BLOOD SPECIMENOrdering Facility: [facility] Address: [address] [place] [address] Performed By: #### 5 7021-8 ####[facility] [id number] [place] [address] STATES OF [facility] Hemoglobin (Bld) [Mass/Vol] 13.5 g/dL Normal 13.0-17.0 [facility] Comment on above: Order Comment: Speci men Type: BLOOD SPECIMENOrdering Facility: [facility] Address: [address] [place] [address] Performed By: #### 5 7021-8 ####[facility] [id number] [place] [address] [address] [facility] IMMATURE GRAN % 0.3 % Normal [facility] Comment on above: Order Comment: Speci men Type: BLOOD SPECIMENOrdering Facility: [facility] Address: [address] [place] [address] Performed By: #### 5 7021-8 ####[facility] [id number] [place] [address] [place] IMMATURE GRAN ABS <0.03 Normal <0.10 [facility] Comment on above: Order Comment: Speci men Type: BLOOD SPECIMENOrdering Facility: [facility] Address: [address] [place], [place] [address] Performed By: #### 5 7021-8 ####[facility] [id number] [place] [address] Lymphocytes (Bld) [#/Vol] 1.42 10*3/uL Normal 1.00-4.00 [facility] Comment on above: Order Comment: Speci men Type: BLOOD SPECIMENOrdering Facility: [facility] Address: [address] [place], [place] [address] Performed By: #### 5 7021-8 ####[facility] [id number] [place] [address] [address] [facility] Lymphocytes/100 WBC (Bld) 21.7 % Normal [facility] Comment on above: Order Comment: Speci men Type: BLOOD SPECIMENOrdering Facility: [facility] Address: [address] [place], [place] [address] Performed By: #### 5 7021-8 ####[facility] [id number] [place] [address] OF POP MCH (RBC) [Entitic mass] 29.8 pg Normal 26.0-34.0 [facility] Comment on above: Order Comment: Speci men Type: BLOOD SPECIMENOrdering Facility: [facility] Address: [address] [place], [place] [address] Performed By: #### 5 7021-8 ####[facility] [id number] [address] [place] MCHC (RBC) [Mass/Vol] 33.1 g/dL Normal 30.5-36.0 [facility] Comment on above: Order Comment: Speci men Type: BLOOD SPECIMENOrdering Facility: [facility] Address: [address] [place], [place] [address] Performed By: #### 5 7021-8 ####[facility] [id number] [place] [address] [place] MCV (RBC) [Entitic vol] 90.1 fL Normal 80.0-100.0 C [facility] Comment on above: Order Comment: Speci men Type: BLOOD SPECIMENOrdering Facility: [facility] Address: [address] [place] [address] Performed By: #### 5 7021-8 ####[facility] [id number] [place] [address] [place] Monocytes (Bld) [#/Vol] 0.42 10*3/uL Normal <0.87 [facility] Comment on above: Order Comment: Speci men Type: BLOOD SPECIMENOrdering Facility: [facility] Address: [address] [place] [address] Performed By: #### 5 7021-8 ####[facility] [id number] [place] [address] [place] Monocytes/100 WBC (Bld) 6.4 % Normal C [facility] Comment on above: Order Comment: Speci men Type: BLOOD SPECIMENOrdering Facility: [facility] Address: [address] [place] [address] Performed By: #### 5 7021-8 ####[facility] [id number] [place] [address] [place] Neutrophils (Bld) [#/Vol] 4.62 10*3/uL Normal 1.45-7.50 [facility] Comment on above: Order Comment: Speci men Type: BLOOD SPECIMENOrdering Facility: [facility] Address: [address] [place] [address] Performed By: #### 5 7021-8 ####[facility] [id number] [place] [address] [place] Neutrophils/100 WBC (Bld) 70.8 % Normal [facility] Comment on above: Order Comment: Speci men Type: BLOOD SPECIMENOrdering Facility: [facility] Address: [address] [place], [place] [address] Performed By: #### 5 7021-8 ####[facility] SYSTEM [id number] [place] [address] [place] Nucleated RBC (Bld) [#/Vol] 10*3/uL Normal <0.01 [facility] Comment on above: Order Comment: Speci men Type: BLOOD SPECIMENOrdering Facility: [facility] Address: [address] [place], [place] [address] Performed By: #### 5 7021-8 ####[facility] [id number] [place] [address] [place] Nucleated RBC/100 WBC (Bld) [Ratio] 0.0 /100 WBC Normal [facility] Comment on above: Order Comment: Speci men Type: BLOOD SPECIMENOrdering Facility: [facility] Address: [address] [place], [place] [address] Performed By: #### 5 7021-8 ####[facility] [id number] [place] [address] [place] Platelet mean volume (Bld) [Entitic vol] 9.8 fL Normal 9.0-12.7 [facility] Comment on above: Order Comment: Speci men Type: BLOOD SPECIMENOrdering Facility: [facility] Address: [address] [place] [address] Performed By: #### 5 7021-8 ####[facility] [id number] [place] [address] [place] Platelets (Bld) [#/Vol] 206 10*3/uL Normal 150-400 [facility] Comment on above: Order Comment: Speci men Type: BLOOD SPECIMENOrdering Facility: [facility] Address: [address] [place] [address] Performed By: #### 5 7021-8 ####[facility] [id number] [place] [address] [place] RBC (Bld) [#/Vol] 4.53 10*6/uL Normal 4.20-6.00 [facility] Comment on above: Order Comment: Speci men Type: BLOOD SPECIMENOrdering Facility: [facility] Address: [address] [place] [address] Performed By: #### 5 7021-8 ####[facility] [id number] [place] [address] WBC (Bld) [#/Vol] 6.53 10*3/uL Normal 3.70-11.00 [facility] Comment on above: Order Comment: Speci men Type: BLOOD SPECIMENOrdering Facility: [facility] Address: [address] [place] [address] Performed By: #### 5 7021-8 ####[facility] [id number] [place] [address] [place] CNNURSEon 09-02-2021 CNNURSE Normal [facility] CNOVSPon 09-02-2021 CNOVSP Normal [facility] CT CHEST W IVCON PEon 2021 CT CHEST W IVCON PE Normal [facility] Comprehensive metabolic 2000 panelon 09-02-2021 Albumin [Mass/Vol] 4.1 g/dL Normal 3.9-4.9 [facility] Comment on above: Order Comment: Speci men Type: BLOOD SPECIMENOrdering Facility: [facility] Address: [address] [place] [address] Performed By: #### 2 4323-8 ####[facility] [id number] [place] [address] [place] ALP [Catalytic activity/Vol] 82 U/L Normal 38-113 [facility] Comment on above: Order Comment: Speci men Type: BLOOD SPECIMENOrdering Facility: [facility] Address: [address] [place], [place] [address] Performed By: #### 2 4323-8 ####[facility] [id number] [address] [place] ALT [Catalytic activity/Vol] 79 U/L High 10-54 [facility] Comment on above: Order Comment: Speci men Type: BLOOD SPECIMENOrdering Facility: [facility] Address: [address] [place], [place] [address] Performed By: #### 2 4323-8 ####[facility] [id number] [place] [address] [place] Anion gap [Moles/Vol] 10 mmol/L Normal 9-18 [facility] Comment on above: Order Comment: Speci men Type: BLOOD SPECIMENOrdering Facility: [facility] Address: [address] [place] [address] Performed By: #### 2 4323-8 ####[facility] [id number] [place] [address] [place] AST [Catalytic activity/Vol] 50 U/L High 14-40 [facility] Comment on above: Order Comment: Speci men Type: BLOOD SPECIMENOrdering Facility: [facility] Address: [address] [place], [place] [address] Performed By: #### 2 4323-8 ####[facility] [id number] [place] [address] [place] Bilirubin [Mass/Vol] 1.0 mg/dL Normal 0.2-1.3 [facility] Comment on above: Order Comment: Speci men Type: BLOOD SPECIMENOrdering Facility: [facility] Address: [address] [place], [place] [address] Performed By: #### 2 4323-8 ####[facility] [id number] [place] [address] [place] Calcium [Mass/Vol] 9.1 mg/dL Normal 8.5-10.2 [facility] Comment on above: Order Comment: Speci men Type: BLOOD SPECIMENOrdering Facility: [facility] Address: [address] [place] [address] Performed By: #### 2 4323-8 ####[facility] [id number] [place] [address] [place] Chloride [Moles/Vol] 107 mmol/L High 97-105 [facility] Comment on above: Order Comment: Speci men Type: BLOOD SPECIMENOrdering Facility: [facility] Address: [address] [place] [address] Performed By: #### 2 4323-8 ####[facility] [id number] [place] [address] [place] CO2 [Moles/Vol] 25 mmol/L Normal 22-30 [facility] Comment on above: Order Comment: Speci men Type: BLOOD SPECIMENOrdering Facility: [facility] Address: [address] [place] [address] Performed By: #### 2 4323-8 ####[facility] [id number] [place] [address] [place] Creatinine [Mass/Vol] 1.07 mg/dL Normal 0.73-1.22 [facility] Comment on above: Order Comment: Speci men Type: BLOOD SPECIMENOrdering Facility: [facility] Address: [address] [place] [address] Performed By: #### 2 4323-8 ####[facility] [id number] [place] [address] [place] ESTIMATED GLOMERULAR FILTRATION RATE 81 mL/min/1.73m??? Normal >=60 [facility] Comment on above: Order Comment: Aaliyah gibson Type: BLOOD SPECIMENOrdering Facility: [facility] Address: [address] [place] [address] Result Comment: Laurita mated Glomerular Filtration Rate [...] actual GFR. Performed By: #### 2 4323-8 ####[facility] [id number] [place] [address] [place] Glucose [Mass/Vol] 127 mg/dL High 74-99 [facility] Comment on above: Order Comment: Aaliyah gibson Type: BLOOD SPECIMENOrdering Facility: [facility] Address: [address] [place] [address] Result Comment: The [place] Diabetes Association (ADA) provides guidance for cutoff [...] Standards of Medical Care in Diabetes 2016, [place] [employer] Association. Diabetes Care. 2016.39(Suppl 1). Performed By: #### 2 4323-8 ####[facility] [id number] [place] [address] [place] Potassium [Moles/Vol] 3.6 mmol/L Low 3.7-5.1 [facility] Comment on above: Order Comment: Aaliyah gibson Type: BLOOD SPECIMENOrdering Facility: [facility] Address: [address] [place], [place] [address] Performed By: #### 2 4323-8 ####[facility] [id number] [place] [address] [place] Protein [Mass/Vol] 6.8 g/dL Normal 6.3-8.0 [facility] Comment on above: Order Comment: Speci men Type: BLOOD SPECIMENOrdering Facility: [facility] Address: [address] [place], [place] [address] Performed By: #### 2 4323-8 ####[facility] [id number] [place] [address] [place] Sodium [Moles/Vol] 142 mmol/L Normal 136-144 [facility] Comment on above: Order Comment: Speci men Type: BLOOD SPECIMENOrdering Facility: [facility] Address: [address] [place] [address] Performed By: #### 2 4323-8 ####[facility] [id number] [place] [address] [place] Urea nitrogen [Mass/Vol] 14 mg/dL Normal 9-24 [facility] Comment on above: Order Comment: Speci men Type: BLOOD SPECIMENOrdering Facility: [facility] Address: [address] [place], [place] [address] Performed By: #### 2 4323-8 ####[facility] [id number] [place] [address] [place] D dimer FEU PPP-mCncon 09-02 Fibrin D-dimer FEU (PPP) [Mass/Vol] 1920 ng/mL FEU High <500 [facility] Comment on above: Order Comment: Speci men Type: BLOOD SPECIMENOrdering Facility: [facility] Address: [address] [place], [place] [address] Performed By: #### 4 8065-7 ####[facility] LABCLIA [id number] [place] [id number] [place] ED NOTEon 09-02-2021 ED NOTE HNO ID: [id number] Author: Lisa Bright RN Service: ? Author Type: Registered Nurse Type: ED Notes Filed: 09/02/2021 7:02 PM Note Text: Bed: E12- Expected date: Expected time: Means of arrival: Comments: Normal [facility] ED NOTE HNO ID: [id number] Author: Luma Sanford RN Service: Emergency Medicine Author Type: Registered Nurse Type: ED Notes Filed: 09/02/2021 6:36 PM Note Text: Still no staff assigned to patient, RN to Dr Fleming to pickle pumper pt at this time. Normal [facility] ED PROV NOTEon 09-02-2021 ED PROV NOTE Normal [facility] Ferritin SerPl-mCncon 2021 Ferritin [Mass/Vol] 332.0 ng/mL Normal 30.3-565.7 [facility] Comment on above: Order Comment: Speci men Type: BLOOD SPECIMENOrdering Facility: [facility] Address: [address] [place] [address] Performed By: #### 3 034-6, 2276-4 ####[facility] LABIA [id number] [place] [address] [place] Fibrin D-dimer FEU (PPP) [Ma ss/Vol]on 09-02-2021 D DIMER AGE-RELATED CUTOFF 570 ng/mL FEU Normal [facility] Comment on above: Order Comment: Speci men Type: BLOOD SPECIMENOrdering Facility: [facility] Address: [address] [place] [address] Performed By: #### 4 8065-7 ####[facility] LABCLIA [id number] [place] [address] [place] HIGH SENSITIVITY TROPONIN To n 09-02-2021 HIGH SENSITIVITY BEAU 33 ng/L High <12 [facility] Comment on above: Order Comment: Aaliyah gibson Type: BLOOD SPECIMENOrdering Facility: [facility] Address: [address] [place] [address] Result Comment: When assessing risk for acute [...] MACE. Performed By: #### 5 5454-3, HSTNT ####[facility] LABCLIA [id number] [address] [place] HIGH SENSITIVITY BEAU 33 ng/L High <12 [facility] Comment on above: Order Comment: Aaliyah gibson Type: BLOOD SPECIMENOrdering Facility: [facility] Address: [address] [place] [address] Result Comment: When assessing risk for acute [...] day MACE. Performed By: #### H STNT ####[facility] LABCLIA [id number] [place] [address] [place] HISTORY PHYSICALon HISTORY PHYSICAL Normal [facility] HbA1c (Bld)on 09-02-2021 Average glucose Estimated from glycated hemoglobin (Bld) [Mass/Vol] 137 mg/dL Normal [facility] Comment on above: Order Comment: Aaliyah gibson Type: BLOOD SPECIMENOrdering Facility: [facility] Address: [address] [place] [address] Result Comment: eAG: (Estimated average glucose) is a calculated value from HgbA1c and is computer help desk representative of the average blood glucose level in the last 2-3 month period. Performed By: #### 5 5454-3, HSTNT ####[facility] [id number] [place] [address] [place] HbA1c (Bld) [Mass fraction] 6.4 % High 4.3-5.6 [facility] Comment on above: Order Comment: Speci men Type: BLOOD SPECIMENOrdering Facility: [facility] Address: [address] [place] [address] Result Comment: [place] Diabetes Association guidelines indicate that patients with HgbA1c in the range 5.7-6.4% are at increased risk for development of diabetes, and intervention by lifestyle modification may be beneficial. HgbA1c greater or equal to 6.5% is considered diagnostic of diabetes. Performed By: #### 5 5454-3, HSTNT ####[facility] [id number] [place] [address] [place] LDH SerPl-cCncon 09-02-2021 LDH [Catalytic activity/Vol] 336 U/L High 135-225 [facility] Comment on above: Order Comment: Speci men Type: BLOOD SPECIMENOrdering Facility: [facility] Address: [address] [place] [address] Performed By: #### 2 532-0 ####[facility] [id number] [place] [address] [place] Magnesium SerPl-mCncon 09-02 Magnesium [Mass/Vol] 2.2 mg/dL Normal 1.7-2.3 [facility] Comment on above: Order Comment: Speci men Type: BLOOD SPECIMENOrdering Facility: [facility] Address: [address] [place] [address] Performed By: #### 3 3762-6, 3016-3, 91017-2 ####[facility] [id number] [place] [address] [place] NT-proBNP SerPl-mCncon 09-02 Natriuretic peptide.B prohormone N-Terminal [Mass/Vol] 3442 pg/mL High <125 [facility] Comment on above: Order Comment: Aaliyah gibson Type: BLOOD SPECIMENOrdering Facility: [facility] Address: [address] [place], [place] [address] Performed By: #### 3 3762-6, 3016-3, 26581-6 ####[facility] LABCLIA [id number] [address] [facility] No Panel Informationon 09-02 [facility] PT panel Coag (PPP)on 2021 INR Coag (PPP) [Relative time] 1.1 {INR} Normal 0.9-1.3 [facility] Comment on above: Order Comment: Aaliyah gibson Type: BLOOD SPECIMENOrdering Facility: [facility] Address: [address] [place] [address] Result Comment: Constanza min K Antagonist (VKA) Therapeutic Range: INR 2 to 3 (Target INR of 2.5)Note: For patients treated with VKA drugs, such as warfarin, the [place] [employer] 2012 Guideline recommends [...] 70: 252-289 Performed By: #### 3 4528-0, 07277-9 ####[facility] LABCLIA [id number] [address] [place] PT Coag (PPP) [Time] 12.0 s Normal 9.7-13.0 [facility] Comment on above: Order Comment: Speci men Type: BLOOD SPECIMENOrdering Facility: [facility] Address: [address] [place] [address] Performed By: #### 3 4528-0, 97309-3 ####[facility] LABIA [id number] [place] [address] [place] SARS-CoV-2 RNA Resp Ql SANDOVAL+p robeon 09-02-2021 SARS-CoV-2 (COVID-19) RNA SANDOVAL+probe Ql (Resp) COVID 19 RESULT: SARS-CoV-2 (Agent of COVID-19) Not Detected by RT-PCR or equivalent method. This test has been authorized by FDA under an Emergency Use Authorization (EUA). Normal [facility] Comment on above: Performed By: #### 9 4500-6 ####[facility] LABIA [id number] [place] [address] [place] TSH SerPl-aCncon 09-02-2021 TSH Qn 1.460 m[IU]/L Normal 0.270-4.20 0 [facility] Comment on above: Order Comment: Speci men Type: BLOOD SPECIMENOrdering Facility: [facility] Address: [address] [place] [address] Performed By: #### 3 3762-6, 3016-3, 64669-1 ####[facility] LABIA [id number] [place] [address] [place] Transferrin SerPl-mCncon Transferrin [Mass/Vol] 234 mg/dL Normal 200-360 [facility] Comment on above: Order Comment: Speci men Type: BLOOD SPECIMENOrdering Facility: [facility] Address: [address] [place] [address] Performed By: #### 3 034-6, 2276-4 ####[facility] LABCLIA [id number] [place] [address] [place] XR CHEST 2V FRONTAL/LATon XR CHEST 2V FRONTAL/LAT Normal C [facility] aPTT PPPon 09-02-2021 aPTT Coag (PPP) [Time] 28.7 s Normal 23.0-32.[address] [facility] Comment on above: Order Comment: Speci men Type: BLOOD SPECIMENOrdering Facility: [facility] Address: [address] [place] [address] Performed By: #### 3 4528-0, 58587-9 ####[facility]UN[facility] [id number] [place] [address] [place] CNPNon 09-01-2021 CNPN Normal [facility] CNNURSEon 08-27-2021 CNNURSE Normal [facility] CBC W Auto Differential pane l (Bld)on 08-19-2021 Basophils (Bld) [#/Vol] 0.04 10*3/uL Normal <0.11 [facility] Comment on above: Order Comment: Speci men Type: BLOOD SPECIMENOrdering Facility: [facility] Address: [address] [place] [address] Performed By: #### 5 7021-8 ####[facility] [id number] [address] [place] Basophils/100 WBC (Bld) 0.7 % Normal C [facility] Comment on above: Order Comment: Speci men Type: BLOOD SPECIMENOrdering Facility: [facility] Address: [address] [place] [address] Performed By: #### 5 7021-8 ####[facility] [id number] [place] [address] [place] Differential cell count method Nom (Bld) Auto Normal [facility] Comment on above: Order Comment: Speci men Type: BLOOD SPECIMENOrdering Facility: [facility] Address: [address] [place] [address] Performed By: #### 5 7021-8 ####[facility] [id number] [place] [address] [place] Eosinophils (Bld) [#/Vol] 0.15 10*3/uL Normal <0.46 [facility] Comment on above: Order Comment: Speci men Type: BLOOD SPECIMENOrdering Facility: [facility] Address: [address] [place] [address] Performed By: #### 5 7021-8 ####[facility] [id number] [place] [address] [place] Eosinophils/100 WBC (Bld) 2.5 % Normal [facility] Comment on above: Order Comment: Speci men Type: BLOOD SPECIMENOrdering Facility: [facility] Address: [address] [place] [address] Performed By: #### 5 7021-8 ####[facility] [id number] [place] [address] [place] Erythrocyte distribution width (RBC) [Ratio] 15.0 % Normal 11.5-15.0 [facility] Comment on above: Order Comment: Speci men Type: BLOOD SPECIMENOrdering Facility: [facility] Address: [address] [place], [place] [address] Performed By: #### 5 7021-8 ####[facility] [id number] [place] [address] [place] Hematocrit (Bld) [Volume fraction] 49.1 % Normal 39.0-51.0 [facility] Comment on above: Order Comment: Speci men Type: BLOOD SPECIMENOrdering Facility: [facility] Address: [address] [place] [address] Performed By: #### 5 7021-8 ####[facility] [id number] [place] [address] [place] Hemoglobin (Bld) [Mass/Vol] 17.0 g/dL Normal 13.0-17.0 [facility] Comment on above: Order Comment: Speci men Type: BLOOD SPECIMENOrdering Facility: [facility] Address: [address] [place] [address] Performed By: #### 5 7021-8 ####[facility] [id number] [place] [address] [place] IMMATURE GRAN % 0.3 % Normal [facility] Comment on above: Order Comment: Speci men Type: BLOOD SPECIMENOrdering Facility: [facility] Address: [address] [place] [address] Performed By: #### 5 7021-8 ####[facility] [id number] [place] [address] [place] IMMATURE GRAN ABS <0.03 Normal <0.10 [facility] Comment on above: Order Comment: Speci men Type: BLOOD SPECIMENOrdering Facility: [facility] Address: [address] [place] [address] Performed By: #### 5 7021-8 ####[facility] [id number] [place] [address] [place] Lymphocytes (Bld) [#/Vol] 1.58 10*3/uL Normal 1.00-4.00 [facility] Comment on above: Order Comment: Speci men Type: BLOOD SPECIMENOrdering Facility: [facility] Address: [address] [place] [address] Performed By: #### 5 7021-8 ####[facility] [id number] [place] [address] [place] Lymphocytes/100 WBC (Bld) 26.2 % Normal [facility] Comment on above: Order Comment: Speci men Type: BLOOD SPECIMENOrdering Facility: [facility] Address: [address] [place], [place] [address] Performed By: #### 5 7021-8 ####[facility] [id number] [place] [address] MCH (RBC) [Entitic mass] 29.6 pg Normal 26.0-34.0 [facility] Comment on above: Order Comment: Speci men Type: BLOOD SPECIMENOrdering Facility: [facility] Address: [address] [place], [place] [address] Performed By: #### 5 7021-8 ####[facility] [id number] [place] [address] MCHC (RBC) [Mass/Vol] 34.6 g/dL Normal 30.5-36.0 [facility] Comment on above: Order Comment: Speci men Type: BLOOD SPECIMENOrdering Facility: [facility] Address: [address] [place], [place] [address] Performed By: #### 5 7021-8 ####[facility] [id number] [place] [address] MCV (RBC) [Entitic vol] 85.5 fL Normal 80.0-100.0 C [facility] Comment on above: Order Comment: Speci men Type: BLOOD SPECIMENOrdering Facility: [facility] Address: [address] [place], [place] [address] Performed By: #### 5 7021-8 ####[facility] [id number] [place] [address] Monocytes (Bld) [#/Vol] 0.49 10*3/uL Normal <0.87 [facility] Comment on above: Order Comment: Speci men Type: BLOOD SPECIMENOrdering Facility: [facility] Address: [address] [place], [place] [address] Performed By: #### 5 7021-8 ####[facility] [id number] [place] [address] [place] Monocytes/100 WBC (Bld) 8.1 % Normal [facility] Comment on above: Order Comment: Speci men Type: BLOOD SPECIMENOrdering Facility: [facility] Address: [address] [place] [address] Performed By: #### 5 7021-8 ####[facility] [id number] [place] [address] [place] Neutrophils (Bld) [#/Vol] 3.74 10*3/uL Normal 1.45-7.50 [facility] Comment on above: Order Comment: Speci men Type: BLOOD SPECIMENOrdering Facility: [facility] Address: [address] [place] [address] Performed By: #### 5 7021-8 ####[facility] [id number] [place] [address] [place] Neutrophils/100 WBC (Bld) 62.2 % Normal [facility] Comment on above: Order Comment: Speci men Type: BLOOD SPECIMENOrdering Facility: [facility] Address: [address] [place] [address] Performed By: #### 5 7021-8 ####[facility] [id number] [place] [address] [place] Nucleated RBC (Bld) [#/Vol] 10*3/uL Normal <0.01 [facility] Comment on above: Order Comment: Speci men Type: BLOOD SPECIMENOrdering Facility: [facility] Address: [address] [place], [place] [address] Performed By: #### 5 7021-8 ####[facility] [id number] [place] [address] [place] Nucleated RBC/100 WBC (Bld) [Ratio] 0.0 /100 WBC Normal [facility] Comment on above: Order Comment: Speci men Type: BLOOD SPECIMENOrdering Facility: [facility] Address: [address] [place], [place] [address] Performed By: #### 5 7021-8 ####[facility] [id number] [place] [address] [place] Platelet mean volume (Bld) [Entitic vol] 10.4 fL Normal 9.0-12.7 [facility] Comment on above: Order Comment: Speci men Type: BLOOD SPECIMENOrdering Facility: [facility] Address: [address] [place], [place] [address] Performed By: #### 5 7021-8 ####[facility] [id number] [place] [address] [place] Platelets (Bld) [#/Vol] 298 10*3/uL Normal 150-400 [facility] Comment on above: Order Comment: Speci men Type: BLOOD SPECIMENOrdering Facility: [facility] Address: [address] [place], [place] [address] Performed By: #### 5 7021-8 ####[facility] [id number] [place] [address] [place] RBC (Bld) [#/Vol] 5.74 10*6/uL Normal 4.20-6.00 [facility] Comment on above: Order Comment: Speci men Type: BLOOD SPECIMENOrdering Facility: [facility] Address: [address] [place], [place] [address] Performed By: #### 5 7021-8 ####[facility] [id number] [place] [address] [place] WBC (Bld) [#/Vol] 6.02 10*3/uL Normal 3.70-11.00 [facility] Comment on above: Order Comment: Speci men Type: BLOOD SPECIMENOrdering Facility: [facility] Address: [address] [place], [place] [address] Performed By: #### 5 7021-8 ####[facility] [id number] [place] [address] [place] CNNURSEon 08-19-2021 CNNURSE Normal [facility] CNOVon 08-19-2021 CNOV Normal [facility] CNOVSPon 08-19-2021 CNOVSP Normal [facility] Comprehensive metabolic 2000 panelon 08-19-2021 Albumin [Mass/Vol] 4.6 g/dL Normal 3.9-4.9 [facility] Comment on above: Order Comment: Speci men Type: BLOOD SPECIMENOrdering Facility: [facility] Address: [address] [place], [place] [address] Performed By: #### 2 4323-8, 3083-1, ####[facility] [id number] [place] [address] [place] ALP [Catalytic activity/Vol] 84 U/L Normal 38-113 [facility] Comment on above: Order Comment: Speci men Type: BLOOD SPECIMENOrdering Facility: [facility] Address: [address] [place], [place] [address] Performed By: #### 2 4323-8, 3083-1, ####[facility] [id number] [place] [address] [place] ALT [Catalytic activity/Vol] 59 U/L High 10-54 [facility] Comment on above: Order Comment: Speci men Type: BLOOD SPECIMENOrdering Facility: [facility] Address: [address] [place], [place] [address] Performed By: #### 2 4323-8, 308-1, ####[facility] [id number] [place] [address] [place] Anion gap [Moles/Vol] 12 mmol/L Normal 9-18 [facility] Comment on above: Order Comment: Speci men Type: BLOOD SPECIMENOrdering Facility: [facility] Address: [address] [place] [address] Performed By: #### 2 4323-8, 3084-1, ####[facility] [id number] [place] [address] [place] AST [Catalytic activity/Vol] 45 U/L High 14-40 [facility] Comment on above: Order Comment: Speci men Type: BLOOD SPECIMENOrdering Facility: [facility] Address: [address] [place], [place] [address] Performed By: #### 2 4323-8, 308-1, ####[facility] [id number] [place] [address] [place] Bilirubin [Mass/Vol] 0.3 mg/dL Normal 0.2-1.3 [facility] Comment on above: Order Comment: Speci men Type: BLOOD SPECIMENOrdering Facility: [facility] Address: [address] [place], [place] [address] Performed By: #### 2 4323-8, 3083-, ####[facility] [id number] [place] [address] [place] Calcium [Mass/Vol] 9.7 mg/dL Normal 8.5-10.2 [facility] Comment on above: Order Comment: Speci men Type: BLOOD SPECIMENOrdering Facility: [facility] Address: [address] [place] [address] Performed By: #### 2 4323-8, 3084-1, ####[facility] [id number] [place] [id number] [place] Chloride [Moles/Vol] 102 mmol/L Normal 97-105 [facility] Comment on above: Order Comment: Speci men Type: BLOOD SPECIMENOrdering Facility: [facility] Address: [address] [place], [place] [address] Performed By: #### 2 4323-8, 3084-1, ####[facility] [id number] [place] [address] [place] CO2 [Moles/Vol] 26 mmol/L Normal 22-30 [facility] Comment on above: Order Comment: Speci men Type: BLOOD SPECIMENOrdering Facility: [facility] Address: [address] [place] [address] Performed By: #### 2 4323-8, 3084-1, ####[facility] [id number] [place] [address] [place] Creatinine [Mass/Vol] 1.26 mg/dL High 0.73-1.22 [facility] Comment on above: Order Comment: Speci men Type: BLOOD SPECIMENOrdering Facility: [facility] Address: [address] [place], [place] [address] Performed By: #### 2 4323-8, 1, ####[facility] [id number] [place] [address] [place] ESTIMATED GLOMERULAR FILTRATION RATE 67 mL/min/1.73m??? Normal >=60 [facility] Comment on above: Order Comment: Speci men Type: BLOOD SPECIMENOrdering Facility: [facility] Address: [address] [place], [place] [address] Result Comment: Laurita mated Glomerular Filtration Rate [...] 2 4323-8, 3084-, ####[facility] [id number] [place] [address] [place] Glucose [Mass/Vol] 108 mg/dL High 74-99 [facility] Comment on above: Order Comment: Speci men Type: BLOOD SPECIMENOrdering Facility: [facility] Address: [address] [address] Result Comment: The [place] [employer] (ADA) provides guidance for cutoff [...] Standards of Medical Care in Diabetes 2016, [place] [employer]. Diabetes Care. 2016.39(Suppl 1). Performed By: #### 2 4323-8, 3083-03, ####[facility] [id number] [place] [address] [place] Potassium [Moles/Vol] 4.1 mmol/L Normal 3.7-5.1 [facility] Comment on above: Order Comment: Speci men Type: BLOOD SPECIMENOrdering Facility: [facility] Address: [address] [place] [address] Performed By: #### 2 4323-8, 30806-06, ####[facility] [id number] [place] [address] [place] Protein [Mass/Vol] 7.4 g/dL Normal 6.3-8.0 [facility] Comment on above: Order Comment: Speci men Type: BLOOD SPECIMENOrdering Facility: [facility] Address: [address] [place] [address] Performed By: #### 2 4323-8, 3084-1, ####[facility] [id number] [place] [address] [place] Sodium [Moles/Vol] 140 mmol/L Normal 136-144 [facility] Comment on above: Order Comment: Speci men Type: BLOOD SPECIMENOrdering Facility: [facility] Address: [address] [place] [address] Performed By: #### 2 4323-8, 3084-1, ####[facility] [id number] [place] [address] [place] Urea nitrogen [Mass/Vol] 17 mg/dL Normal 9-24 [facility] Comment on above: Order Comment: Speci men Type: BLOOD SPECIMENOrdering Facility: [facility] Address: [address] [place] [address] Performed By: #### 2 4323-8, 3084-1, ####[facility] [id number] [place] [address] [place] LDH SerPl-cCncon 08-19-2021 LDH [Catalytic activity/Vol] 334 U/L High 135-225 [facility] Comment on above: Order Comment: Speci men Type: BLOOD SPECIMENOrdering Facility: [facility] Address: [address] [place] [address] Performed By: #### 2 532-0 ####[facility] [id number] [place] [address] [place] Magnesium SerPl-mCncon 08-19 Magnesium [Mass/Vol] 2.3 mg/dL Normal 1.7-2.3 [facility] Comment on above: Order Comment: Speci men Type: BLOOD SPECIMENOrdering Facility: [facility] Address: [address] [place] [address] Performed By: #### 2 4323-8, 3084-1, 16133-0 ####[facility] [id number] [place] [address] [place] PT panel Coag (PPP)on 2021 INR Coag (PPP) [Relative time] 1.0 {INR} Normal 0.9-1.3 [facility] Comment on above: Order Comment: Aaliyah gibson Type: BLOOD SPECIMENOrdering Facility: [facility] Address: [address] [place], [place] [address] Result Comment: Constanza min K Antagonist (VKA) Therapeutic Range: INR 2 to 3 (Target INR of 2.5)Note: For patients treated with VKA drugs, such as warfarin, the [place] [employer] 2012 Guideline recommends [...] al. Chest 2012, 141:7S-47SNishimura RA, et al. [facility] 2017, 70: 252-289 Performed By: #### 3 4528-0, 41656-9 ####[facility] [id number] [place] [address] [place] PT Coag (PPP) [Time] 10.9 s Normal 9.7-13.0 [facility] Comment on above: Order Comment: Aaliyah gibson Type: BLOOD SPECIMENOrdering Facility: [facility] Address: [address] [place], [place] [address] Performed By: #### 3 4528-0, 75971-6 ####[facility] [id number] [place] [address] [place] Phosphate SerPl-mCncon 08-19 Phosphate [Mass/Vol] 4.2 mg/dL Normal 2.7-4.8 [facility] Comment on above: Order Comment: Speci men Type: BLOOD SPECIMENOrdering Facility: [facility] Address: [address] [place] [address] Performed By: #### 2 777-1 ####[facility] [id number] [place] [address] [place] Urate [facility] Urate [Mass/Vol] 7.4 mg/dL Normal 4.0-8.1 [facility] Comment on above: Order Comment: Speci men Type: BLOOD SPECIMENOrdering Facility: [facility] Address: [address] [place] [address] Performed By: #### 2 4323-8, 3084-1, 89512-6 ####[facility] [id number] [place] [address] [place] aPTT PPPon 08-19-2021 aPTT Coag (PPP) [Time] 28.3 s Normal 23.0-32.4 [facility] Comment on above: Order Comment: Speci men Type: BLOOD SPECIMENOrdering Facility: [facility] Address: [address] [place], [place] [address] Performed By: #### 3 4528-0, 12571-2 ####[facility] [id number] [place] [address] [place] CNPNon 08-18-2021 CNPN Normal [facility] CBC W Auto Differential pane l (Bld)on 08-17-2021 Basophils (Bld) [#/Vol] 0.04 10*3/uL Normal <0.11 [facility] Comment on above: Order Comment: Speci men Type: BLOOD SPECIMENOrdering Facility: [facility] Address: [address] [place], [place] [address] Performed By: #### 5 7021-8 ####[facility] LABCLIA [id number] [place] [address] [place] Basophils/100 WBC (Bld) 0.5 % Normal [facility] Comment on above: Order Comment: Speci men Type: BLOOD SPECIMENOrdering Facility: [facility] Address: [address] [place], [place] [address] Performed By: #### 5 7021-8 ####[facility] LABCLIA [id number] [place] [address] [place] Differential cell count method Nom (Bld) Auto Normal [facility] Comment on above: Order Comment: Speci men Type: BLOOD SPECIMENOrdering Facility: [facility] Address: [address] [place], [place] [address] Performed By: #### 5 7021-8 ####[facility] LABCLIA [id number] [place] [address] [place] Eosinophils (Bld) [#/Vol] 0.18 10*3/uL Normal <0.46 [facility] Comment on above: Order Comment: Speci men Type: BLOOD SPECIMENOrdering Facility: [facility] Address: [address] [place], [place] [address] Performed By: #### 5 7021-8 ####[facility] LABCLIA [id number] [address] [place] Eosinophils/100 WBC (Bld) 2.4 % Normal [facility] Comment on above: Order Comment: Speci men Type: BLOOD SPECIMENOrdering Facility: [facility] Address: [address] [place], [place] [address] Performed By: #### 5 7021-8 ####[facility] LABIA [id number] [place] [address] [place] Erythrocyte distribution width (RBC) [Ratio] 14.6 % Normal 11.5-15.0 [facility] Comment on above: Order Comment: Speci men Type: BLOOD SPECIMENOrdering Facility: [facility] Address: [address] [place], [place] [address] Performed By: #### 5 7021-8 ####[facility] LABIA [id number] [place] [address] [place] Hematocrit (Bld) [Volume fraction] 47.4 % Normal 39.0-51.0 [facility] Comment on above: Order Comment: Speci men Type: BLOOD SPECIMENOrdering Facility: [facility] Address: [address] [place] [address] Performed By: #### 5 7021-8 ####[facility] [id number] [place] [address] [place] Hemoglobin (Bld) [Mass/Vol] 16.4 g/dL Normal 13.0-17.0 [facility] Comment on above: Order Comment: Speci men Type: BLOOD SPECIMENOrdering Facility: [facility] Address: [address] [place] [address] Performed By: #### 5 7021-8 ####[facility] LABUNIV[facility] [id number] [address] [place] IMMATURE GRAN % 0.3 % Normal [facility] Comment on above: Order Comment: Speci men Type: BLOOD SPECIMENOrdering Facility: [facility] Address: [address] [place] [address] Performed By: #### 5 7021-8 ####[facility] LABUNIVERS[facility] [id number] [address] [place] IMMATURE GRAN ABS <0.03 Normal <0.10 [facility] Comment on above: Order Comment: Speci men Type: BLOOD SPECIMENOrdering Facility: [facility] Address: [address] [place] [address] Performed By: #### 5 7021-8 ####[facility] LABCLIA [id number] [place] [address] [place] Lymphocytes (Bld) [#/Vol] 1.36 10*3/uL Normal 1.00-4.00 [facility] Comment on above: Order Comment: Speci men Type: BLOOD SPECIMENOrdering Facility: [facility] Address: [address] [place] [address] Performed By: #### 5 7021-8 ####[facility] LABIA [id number] [address] [place] Lymphocytes/100 WBC (Bld) 18.4 % Normal [facility] Comment on above: Order Comment: Speci men Type: BLOOD SPECIMENOrdering Facility: [facility] Address: [address] [place] [address] Performed By: #### 5 7021-8 ####[facility] LABIA [id number] [place] [address] [place] MCH (RBC) [Entitic mass] 29.8 pg Normal 26.0-34.0 [facility] Comment on above: Order Comment: Speci men Type: BLOOD SPECIMENOrdering Facility: [facility] Address: [address] [place], [place] [address] Performed By: #### 5 7021-8 ####[facility] LABIA [id number] [place] [address] [place] MCHC (RBC) [Mass/Vol] 34.6 g/dL Normal 30.5-36.0 [facility] Comment on above: Order Comment: Speci men Type: BLOOD SPECIMENOrdering Facility: [facility] Address: [address] [place], [place] [address] Performed By: #### 5 7021-8 ####[facility] LABCLIA [id number] [address] [place] MCV (RBC) [Entitic vol] 86.0 fL Normal 80.0-100.0 C [facility] Comment on above: Order Comment: Speci men Type: BLOOD SPECIMENOrdering Facility: [facility] Address: [address] [place], [place] [address] Performed By: #### 5 7021-8 ####[facility] LABIA [id number] [place] [address] [place] Monocytes (Bld) [#/Vol] 0.42 10*3/uL Normal <0.87 [facility] Comment on above: Order Comment: Speci men Type: BLOOD SPECIMENOrdering Facility: [facility] Address: [address] [place] [address] Performed By: #### 5 7021-8 ####[facility] LABCLIA [id number] [address] [place] Monocytes/100 WBC (Bld) 5.7 % Normal C [facility] Comment on above: Order Comment: Speci men Type: BLOOD SPECIMENOrdering Facility: [facility] Address: [address] [place], [place] [address] Performed By: #### 5 7021-8 ####[facility] LABCLIA [id number] [place] [address] [place] Neutrophils (Bld) [#/Vol] 5.37 10*3/uL Normal 1.45-7.50 [facility] Comment on above: Order Comment: Speci men Type: BLOOD SPECIMENOrdering Facility: [facility] Address: [address] [place], [place] [address] Performed By: #### 5 7021-8 ####[facility] LABCLIA [id number] [place] [address] [place] Neutrophils/100 WBC (Bld) 72.7 % Normal [facility] Comment on above: Order Comment: Speci men Type: BLOOD SPECIMENOrdering Facility: [facility] Address: [address] [place] [address] Performed By: #### 5 7021-8 ####[facility] LABIA [id number] [place] [address] [place] Nucleated RBC (Bld) [#/Vol] 10*3/uL Normal <0.01 [facility] Comment on above: Order Comment: Speci men Type: BLOOD SPECIMENOrdering Facility: [facility] Address: [address] [place] [address] Performed By: #### 5 7021-8 ####[facility] LABIA [id number] [place] [address] [place] Nucleated RBC/100 WBC (Bld) [Ratio] 0.0 /100 WBC Normal [facility] Comment on above: Order Comment: Speci men Type: BLOOD SPECIMENOrdering Facility: [facility] Address: [address] [place], [place] [address] Performed By: #### 5 7021-8 ####[facility] LABIA [id number] [place] [address] [place] Platelet mean volume (Bld) [Entitic vol] 10.0 fL Normal 9.0-12.7 [facility] Comment on above: Order Comment: Speci men Type: BLOOD SPECIMENOrdering Facility: [facility] Address: [address] [place], [place] [address] Performed By: #### 5 7021-8 ####[facility] LABIA [id number] [place] [address] [place] Platelets (Bld) [#/Vol] 288 10*3/uL Normal 150-400 [facility] Comment on above: Order Comment: Speci men Type: BLOOD SPECIMENOrdering Facility: [facility] Address: [address] [place], [place] [address] Performed By: #### 5 7021-8 ####[facility] LABCLIA [id number] [place] [address] [place] RBC (Bld) [#/Vol] 5.51 10*6/uL Normal 4.20-6.00 [facility] Comment on above: Order Comment: Speci men Type: BLOOD SPECIMENOrdering Facility: [facility] Address: [address] [place], [place] [address] Performed By: #### 5 7021-8 ####[facility] LABCLIA [id number] [place] [address] [place] WBC (Bld) [#/Vol] 7.39 10*3/uL Normal 3.70-11.00 [facility] Comment on above: Order Comment: Speci men Type: BLOOD SPECIMENOrdering Facility: [facility] Address: [address] [place], [place] [address] Performed By: #### 5 7021-8 ####[facility] LABCLIA [id number] [place] [address] [place] [address] ABD/PEL WO IVCONon 2021 CT ABD/PEL WO IVCON Normal [facility] CT CHEST W IVCON PEon 2021 CT CHEST W IVCON PE Normal [facility] Comprehensive metabolic 2000 panelon 08-17-2021 Albumin [Mass/Vol] 4.4 g/dL Normal 3.9-4.9 [facility] Comment on above: Order Comment: Speci men Type: BLOOD SPECIMENOrdering Facility: [facility] Address: [address] [place], [place] [address] Performed By: #### 3 040-3, 71532-9, 19801-1, 71427-0, BEAU ####[facility] LABCLIA [id number] [place] [address] [place] ALP [Catalytic activity/Vol] 74 U/L Normal 38-113 [facility] Comment on above: Order Comment: Speci men Type: BLOOD SPECIMENOrdering Facility: [facility] Address: [address] [place] [address] Performed By: #### 3 040-3, 76567-5, 20936-6, 55301-9, BEAU ####[facility] LABCLIA [id number] [place] [address] [place] ALT [Catalytic activity/Vol] 44 U/L Normal 10-54 [facility] Comment on above: Order Comment: Speci men Type: BLOOD SPECIMENOrdering Facility: [facility] Address: [address] [place] [address] Performed By: #### 3 040-3, 59507-4, 37906-9, 31138-2, BEAU ####[facility] LABCLIA [id number] [place] [address] [place] Anion gap [Moles/Vol] 12 mmol/L Normal 9-18 [facility] Comment on above: Order Comment: Speci men Type: BLOOD SPECIMENOrdering Facility: [facility] Address: [address] [place] [address] Performed By: #### 3 040-3, 25939-6, 89933-5, 77198-8, BEAU ####[facility] LABCLIA [id number] [place] [address] [place] AST [Catalytic activity/Vol] 27 U/L Normal 14-40 [facility] Comment on above: Order Comment: Speci men Type: BLOOD SPECIMENOrdering Facility: [facility] Address: [address] [place] [address] Performed By: #### 3 040-3, 81495-0, 34493-8, 02442-3, BEAU ####[facility] LABCLIA [id number] [address] [address] [place] Bilirubin [Mass/Vol] 0.7 mg/dL Normal 0.2-1.3 [facility] Comment on above: Order Comment: Speci men Type: BLOOD SPECIMENOrdering Facility: [facility] Address: [address] [place] [address] Performed By: #### 3 040-3, 27887-3, , 24771-5, BEAU ####[facility] LABCLIA [id number] [place] [address] [place] Calcium [Mass/Vol] 10.3 mg/dL High 8.5-10.2 [facility] Comment on above: Order Comment: Speci men Type: BLOOD SPECIMENOrdering Facility: [facility] Address: [address] [place], [place] [address] Performed By: #### 3 040-3, 96906-8, , 20132-2, BEAU ####[facility] LABCLIA [id number] [place] [address] [place] Chloride [Moles/Vol] 99 mmol/L Normal 97-105 [facility] Comment on above: Order Comment: Speci men Type: BLOOD SPECIMENOrdering Facility: [facility] Address: [address] [place], [place] [address] Performed By: #### 3 040-3, 09977-5, , 07712-7, BEAU ####[facility] LABCLIA [id number] [place] [id number] [place] CO2 [Moles/Vol] 26 mmol/L Normal 22-30 [facility] Comment on above: Order Comment: Speci men Type: BLOOD SPECIMENOrdering Facility: [facility] Address: [address] [place], [place] [address] Performed By: #### 3 040-3, 78281-2, , 86004-2, BEAU ####[facility] LABIA [id number] [place] [address] [place] Creatinine [Mass/Vol] 1.21 mg/dL Normal 0.73-1.22 [facility] Comment on above: Order Comment: Speci men Type: BLOOD SPECIMENOrdering Facility: [facility] Address: [address] [place] [address] Performed By: #### 3 040-3, 74633-8, 43794-1, 27158-7, BEAU ####[facility] LABIA [id number] [address] [place] ESTIMATED GLOMERULAR FILTRATION RATE 70 mL/min/1.73m??? Normal >=60 [facility] Comment on above: Order Comment: Spectricia men Type: BLOOD SPECIMENOrdering Facility: [facility] Address: [address] [place] [address] Result Comment: Laurita mated Glomerular Filtration Rate [...] actual GFR. Performed By: #### 3 040-3, 49970-0, 17296-3, 91475-7, BEAU ####[facility] LABIA [id number] [place] [id number] [place] Glucose [Mass/Vol] 118 mg/dL High 74-99 [facility] Comment on above: Order Comment: Speci men Type: BLOOD SPECIMENOrdering Facility: [facility] Address: [address] [place] [address] Result Comment: The [place] [employer] (ADA) provides guidance for cutoff [...] Standards of Medical Care in Diabetes 2016, [place] [employer]. Diabetes Care. 2016.39(Suppl 1). Performed By: #### 3 040-3, 44153-2, 01592-1, 45929-1, BEAU ####[facility] LABCLIA [id number] [place] [address] [place] Potassium [Moles/Vol] 4.1 mmol/L Normal 3.7-5.1 [facility] Comment on above: Order Comment: Speci men Type: BLOOD SPECIMENOrdering Facility: [facility] Address: [address] [place] [address] Performed By: #### 3 040-3, 54325-0, 63840-4, 44970-1, BEAU ####[facility] LABIA [id number] [place] [address] [place] Protein [Mass/Vol] 7.8 g/dL Normal 6.3-8.0 [facility] Comment on above: Order Comment: Speci men Type: BLOOD SPECIMENOrdering Facility: [facility] Address: [address] [place] [address] Performed By: #### 3 040-3, 81744-2, 34130-6, 67516-8, BEAU ####[facility] LABIA [id number] [place] [address] [place] Sodium [Moles/Vol] 137 mmol/L Normal 136-144 [facility] Comment on above: Order Comment: Speci men Type: BLOOD SPECIMENOrdering Facility: [facility] Address: [address] [place] [address] Performed By: #### 3 040-3, 86819-6, 25743-3, 51866-7, BEAU ####[facility] LABCLIA [id number] [place] [address] [place] Urea nitrogen [Mass/Vol] 13 mg/dL Normal 9-24 [facility] Comment on above: Order Comment: Speci men Type: BLOOD SPECIMENOrdering Facility: [facility] Address: [address] [place], [place] [address] Performed By: #### 3 040-3, 57441-5, 95880-1, 38928-6, BEAU ####[facility] LABCLIA [id number] [address] [place] D dimer FEU PPP-mCncon 08-17 Fibrin D-dimer FEU (PPP) [Mass/Vol] 1060 ng/mL FEU High <500 [facility] Comment on above: Order Comment: Speci men Type: BLOOD SPECIMENOrdering Facility: [facility] Address: [address] [place] [address] Performed By: #### 4 8065-7 ####[facility] LABIA [id number] [address] [place] ED NOTEon 08-17-2021 ED NOTE Normal [facility] ED PROV NOTEon 08-17-2021 ED PROV NOTE Normal [facility] ED PROV NOTE Normal [facility] Fibrin D-dimer FEU (PPP) [Ma ss/Vol]on 08-17-2021 D DIMER AGE-RELATED CUTOFF 570 ng/mL FEU Normal [facility] Comment on above: Order Comment: Speci men Type: BLOOD SPECIMENOrdering Facility: [facility] Address: [address] [place], [place] [address] Performed By: #### 4 8065-7 ####[facility] LABCLIA [id number] [place] [address] [place] Lipase SerPl-cCncon 08-18-19 22 Lipase [Catalytic activity/Vol] 22 U/L Normal 16-61 [facility] Comment on above: Order Comment: Speci men Type: BLOOD SPECIMENOrdering Facility: [facility] Address: [address] [place] [address] Performed By: #### 3 040-3, 76306-1, 19392-3, 89449-6, BEAU ####[facility] LABCLIA [id number] [place] [address] [place] Magnesium SerPl-mCncon 08-17 Magnesium [Mass/Vol] 2.0 mg/dL Normal 1.7-2.3 [facility] Comment on above: Order Comment: Speci men Type: BLOOD SPECIMENOrdering Facility: [facility] Address: [address] [place] [address] Performed By: #### 3 040-3, 11738-0, 76918-6, 77743-6, BEAU ####[facility] LABCLIA [id number] [address] [place] NT-proBNP SerPl-ncon 08-17 Natriuretic peptide.B prohormone N-Terminal [Mass/Vol] 1881 pg/mL High <125 [facility] Comment on above: Order Comment: Speci men Type: BLOOD SPECIMENOrdering Facility: [facility] Address: [address] [place] [address] Performed By: #### 3 040-3, 65298-3, 89965-2, 20648-1, BEAU ####[facility] LABIA [id number] [address] [place] TROPONIN Ton 08-17-2021 Troponin T.cardiac [Mass/Vol] 0.022 ug/L Normal 0.000-0.02 9 [facility] Comment on above: Order Comment: Speci men Type: BLOOD SPECIMENOrdering Facility: [facility] Address: [address] [place] [address] Performed By: #### 3 040-3, 89343-3, 60957-4, 44313-3, BEAU ####[facility] LABCLIA [id number] [place] [address] [place] Urinalysis complete panel (U )on 08-17-2021 Bilirubin Ql (U) Negative Normal Negative [facility] Comment on above: Order Comment: Speci men Type: URINE SPECIMENOrdering Facility: [facility] Address: [address] [place], [place] [address] Performed By: #### 2 4356-8 ####[facility] LABIA [id number] [place] [address] [place] Clarity (Unsp spec) Clear Normal Clear [facility] Comment on above: Order Comment: Speci men Type: URINE SPECIMENOrdering Facility: [facility] Address: [address] [place], [place] [address] Performed By: #### 2 4356-8 ####[facility] LABIA [id number] [place] [address] [place] Color (U) Yellow Normal Yellow [facility] Comment on above: Order Comment: Speci men Type: URINE SPECIMENOrdering Facility: [facility] Address: [address] [place], [place] [address] Performed By: #### 2 4356-8 ####[facility] LABCLIA [id number] [place] [address] [place] Epithelial cells LM.HPF (Urine sed) [#/Area] Few Normal [facility] Comment on above: Order Comment: Speci men Type: URINE SPECIMENOrdering Facility: [facility] Address: [address] [place], [place] [address] Performed By: #### 2 4356-8 ####[facility] LABIA [id number] [place] [address] [place] Glucose Test strip (U) [Mass/Vol] Negative Normal Negative [facility] Comment on above: Order Comment: Speci men Type: URINE SPECIMENOrdering Facility: [facility] Address: [address] Performed By: #### 2 4356-8 ####[facility] LABCLIA [id number] [address] STATES OF [facility] Hemoglobin Ql (U) Negative Normal Negative [facility] Comment on above: Order Comment: Speci men Type: URINE SPECIMENOrdering Facility: [facility] Address: [address] [place], [place] [address] Performed By: #### 2 4356-8 ####[facility] LABCLIA [id number] [address] OF [place] Hyaline casts (Urine sed) [#/Area] 1-3 /LPF Abnormal 0 /LPF [facility] Comment on above: Order Comment: Speci men Type: URINE SPECIMENOrdering Facility: [facility] Address: [address] [place], [place] [address] Performed By: #### 2 4356-8 ####[facility] LABCLIA [id number] [address] STATES [facility] Ketones Ql (U) Negative Normal Negative [facility] Comment on above: Order Comment: Speci men Type: URINE SPECIMENOrdering Facility: [facility] Address: [address] [place], [place] [address] Performed By: #### 2 4356-8 ####[facility] LABCLIA [id number] [address] [place] Leukocyte esterase Test strip Ql (U) Negative Normal Negative [facility] Comment on above: Order Comment: Speci men Type: URINE SPECIMENOrdering Facility: [facility] Address: [address] [place], [place] [address] Performed By: #### 2 4356-8 ####[facility] LABCLIA [id number] [place] [address] [place] Nitrite Ql (U) Negative Normal Negative [facility] Comment on above: Order Comment: Speci men Type: URINE SPECIMENOrdering Facility: [facility] Address: [address] [place] [address] Performed By: #### 2 4356-8 ####[facility] LABIA [id number] [place] [address] [place] pH (U) 7.0 [pH] Normal 5.0-8.0 [facility] Comment on above: Order Comment: Speci men Type: URINE SPECIMENOrdering Facility: [facility] Address: [address] [place] [address] Performed By: #### 2 4356-8 ####[facility] LABIA [id number] [address] STATES OF [facility] Protein (U) [Mass/Vol] Negative Normal Negative [facility] Comment on above: Order Comment: Speci men Type: URINE SPECIMENOrdering Facility: [facility] Address: [address] [place] [address] Performed By: #### 2 4356-8 ####[facility] LABIA [id number] [place] [address] [place] RBC LM.HPF (Urine sed) [#/Area] 0-3 /HPF Normal 0-3 /HPF [facility] Comment on above: Order Comment: Speci men Type: URINE SPECIMENOrdering Facility: [facility] Address: [address] [place], [place] [address] Performed By: #### 2 4356-8 ####[facility] LABIA [id number] [place] [address] [place] Specific gravity (U) [Rel density] 1.016 Normal 1.005-1.03 0 [facility] Comment on above: Order Comment: Speci men Type: URINE SPECIMENOrdering Facility: [facility] Address: [address] [place] [address] Performed By: #### 2 4356-8 ####[facility] LABIA [id number] [place] [address] [place] Urobilinogen Ql (U) Negative Normal Negative [facility] Comment on above: Order Comment: Speci men Type: URINE SPECIMENOrdering Facility: [facility] Address: [address] [place] [address] Performed By: #### 2 4356-8 ####[facility] LABIA [id number] [place] [address] [place] WBC LM.HPF (Urine sed) [#/Area] 0-5 /HPF Normal 0-5 /HPF [facility] Comment on above: Order Comment: Speci men Type: URINE SPECIMENOrdering Facility: [facility] Address: [address] [place] [address] Performed By: #### 2 4356-8 ####[facility] [id number] [place] [address] [place] XR CHEST 1V FRONTAL PORTon 0 08-17-2021 XR CHEST 1V FRONTAL PORT Normal [facility] CNPNon 08-13-2021 CNPN Normal [facility] CNPNon 08-12-2021 CNPN Normal [facility] CNPNon 08-11-2021 CNPN Normal [facility] ACTIVATED PTTon 08-08-2021 aPTT Coag (PPP) [Time] 29.9 s 23.0 - 32.4 sec [facility] CBC W Auto Differential pane l (Bld)on 08-08-2021 Basophils (Bld) [#/Vol] 10*3/uL Normal <0.11 C [facility] Comment on above: Order Comment: Speci men Type: BLOOD SPECIMENOrdering Facility: [facility] Address: [address] [place], [place] [address] Performed By: #### 5 7021-8 ####[facility] [id number] [address] STATES [facility] Basophils/100 WBC (Bld) 0.3 % Normal [facility] Comment on above: Order Comment: Speci men Type: BLOOD SPECIMENOrdering Facility: [facility] Address: [address] [place] [address] Performed By: #### 5 7021-8 ####[facility] [id number] [place] [address] Differential cell count method Nom (Bld) Auto Normal [facility] Comment on above: Order Comment: Speci men Type: BLOOD SPECIMENOrdering Facility: [facility] Address: [address] [place] [address] Performed By: #### 5 7021-8 ####[facility] [place] [facility] [id number] [place] [address] STATES [facility] Eosinophils (Bld) [#/Vol] 0.04 10*3/uL Normal <0.46 [facility] Comment on above: Order Comment: Speci men Type: BLOOD SPECIMENOrdering Facility: [facility] Address: [address] [place] [address] Performed By: #### 5 7021-8 ####[facility] [id number] [place] [address] Eosinophils/100 WBC (Bld) 0.7 % Normal [facility] Comment on above: Order Comment: Speci men Type: BLOOD SPECIMENOrdering Facility: [facility] Address: [address] [place], [place] [address] Performed By: #### 5 7021-8 ####[facility] [id number] [place] [address] [place] [facility] Erythrocyte distribution width (RBC) [Ratio] 15.6 % High 11.5-15.0 [facility] Comment on above: Order Comment: Speci men Type: BLOOD SPECIMENOrdering Facility: [facility] Address: [address] [place], [place] [address] Performed By: #### 5 7021-8 ####[facility] [id number] [address] [place] Hematocrit (Bld) [Volume fraction] 43.0 % Normal 39.0-51.0 [facility] Comment on above: Order Comment: Speci men Type: BLOOD SPECIMENOrdering Facility: [facility] Address: [address] [place], [place] [address] Performed By: #### 5 7021-8 ####[facility] [id number] [place] [address] [place] Hemoglobin (Bld) [Mass/Vol] 14.6 g/dL Normal 13.0-17.0 [facility] Comment on above: Order Comment: Speci men Type: BLOOD SPECIMENOrdering Facility: [facility] Address: [address] [place], [place] [address] Performed By: #### 5 7021-8 ####[facility] [id number] [address] OF [facility] IMMATURE GRAN % 0.3 % Normal [facility] Comment on above: Order Comment: Speci men Type: BLOOD SPECIMENOrdering Facility: [facility] Address: [address] [place], [place] [address] Performed By: #### 5 7021-8 ####[facility] [id number] [place] [address] [place] IMMATURE GRAN ABS <0.03 Normal <0.10 [facility] Comment on above: Order Comment: Speci men Type: BLOOD SPECIMENOrdering Facility: [facility] Address: [address] [place], [place] [address] Performed By: #### 5 7021-8 ####[facility] [id number] [place] [address] [place] Lymphocytes (Bld) [#/Vol] 1.61 10*3/uL Normal 1.00-4.00 [facility] Comment on above: Order Comment: Speci men Type: BLOOD SPECIMENOrdering Facility: [facility] Address: [address] [place], [place] [address] Performed By: #### 5 7021-8 ####[facility] [id number] [place] [address] STATES OF [facility] Lymphocytes/100 WBC (Bld) 26.6 % Normal [facility] Comment on above: Order Comment: Speci men Type: BLOOD SPECIMENOrdering Facility: [facility] Address: [address] [place] [address] Performed By: #### 5 7021-8 ####[facility] [id number] [place] [address] [place] MCH (RBC) [Entitic mass] 29.9 pg Normal 26.0-34.0 [facility] Comment on above: Order Comment: Speci men Type: BLOOD SPECIMENOrdering Facility: [facility] Address: [address] [place], [place] [address] Performed By: #### 5 7021-8 ####[facility] [id number] [address] STATES OF [facility] MCHC (RBC) [Mass/Vol] 34.0 g/dL Normal 30.5-36.0 [facility] Comment on above: Order Comment: Speci men Type: BLOOD SPECIMENOrdering Facility: [facility] Address: [address] [place], [place] [address] Performed By: #### 5 7021-8 ####[facility] [id number] [place] [address] [place] MCV (RBC) [Entitic vol] 87.9 fL Normal 80.0-100.0 C [facility] Comment on above: Order Comment: Speci men Type: BLOOD SPECIMENOrdering Facility: [facility] Address: [address] [place] [address] Performed By: #### 5 7021-8 ####[facility] [id number] [place] [address] [place] Monocytes (Bld) [#/Vol] 0.40 10*3/uL Normal <0.87 [facility] Comment on above: Order Comment: Speci men Type: BLOOD SPECIMENOrdering Facility: [facility] Address: [address] [place] [address] Performed By: #### 5 7021-8 ####[facility] [id number] [place] [address] [place] Monocytes/100 WBC (Bld) 6.6 % Normal C [facility] Comment on above: Order Comment: Speci men Type: BLOOD SPECIMENOrdering Facility: [facility] Address: [address] [place] [address] Performed By: #### 5 7021-8 ####[facility] [id number] [place] [address] [place] Neutrophils (Bld) [#/Vol] 3.97 10*3/uL Normal 1.45-7.50 [facility] Comment on above: Order Comment: Speci men Type: BLOOD SPECIMENOrdering Facility: [facility] Address: [address] [place] [address] Performed By: #### 5 7021-8 ####[facility] [id number] [place] [address] [place] Neutrophils/100 WBC (Bld) 65.5 % Normal [facility] Comment on above: Order Comment: Speci men Type: BLOOD SPECIMENOrdering Facility: [facility] Address: [address] [place], [place] [address] Performed By: #### 5 7021-8 ####[facility] [id number] [address] STATES [place] Nucleated RBC (Bld) [#/Vol] 10*3/uL Normal <0.01 [facility] Comment on above: Order Comment: Speci men Type: BLOOD SPECIMENOrdering Facility: [facility] Address: [address] [place], [place] [address] Performed By: #### 5 7021-8 ####[facility] [place] [id number] [place] [address] [place] Nucleated RBC/100 WBC (Bld) [Ratio] 0.0 /100 WBC Normal [facility] Comment on above: Order Comment: Speci men Type: BLOOD SPECIMENOrdering Facility: [facility] Address: [address] [place], [place] [address] Performed By: #### 5 7021-8 ####[facility] [id number] [place] [address] [place] Platelet mean volume (Bld) [Entitic vol] 10.1 fL Normal 9.0-12.7 [facility] Comment on above: Order Comment: Speci men Type: BLOOD SPECIMENOrdering Facility: [facility] Address: [address] [place] [address] Performed By: #### 5 7021-8 ####[facility] [id number] [place] [address] [place] Platelets (Bld) [#/Vol] 263 10*3/uL Normal 150-400 [facility] Comment on above: Order Comment: Speci men Type: BLOOD SPECIMENOrdering Facility: [facility] Address: [address] [place] [address] Performed By: #### 5 7021-8 ####[facility] [id number] [place] [address] [place] [facility] RBC (Bld) [#/Vol] 4.89 10*6/uL Normal 4.20-6.00 [facility] Comment on above: Order Comment: Speci men Type: BLOOD SPECIMENOrdering Facility: [facility] Address: [address] [place] [address] Performed By: #### 5 7021-8 ####[facility] [id number] [address] STATES OF [facility] WBC (Bld) [#/Vol] 6.06 10*3/uL Normal 3.70-11.00 [facility] Comment on above: Order Comment: Speci men Type: BLOOD SPECIMENOrdering Facility: [facility] Address: [address] [place] [address] Performed By: #### 5 7021-8 ####[facility] [id number] [address] STATES OF [facility] Abs Immature Gran <0.03 <0.10 k/uL [facility] Basophils (Bld) [#/Vol] 10*3/uL <0.11 k/uL [facility] Basophils/100 WBC (Bld) 0.3 % C [facility] Differential cell count method Nom (Bld) Auto [facility] Eosinophils (Bld) [#/Vol] 0.04 10*3/uL <0.46 k/uL [facility] Eosinophils/100 WBC (Bld) 0.7 % [facility] Erythrocyte distribution width (RBC) [Ratio] 15.6 % High 11.5 - 15.0 % [facility] Hematocrit (Bld) [Volume fraction] 43.0 % 39.0 - 51.0 % [facility] Hemoglobin (Bld) [Mass/Vol] 14.6 g/dL 13.0 - 17.0 g/dL [facility] Immature Gran % 0.3 % [facility] Lymphocytes (Bld) [#/Vol] 1.61 10*3/uL 1.00 - 4.00 k/uL [facility] Lymphocytes/100 WBC (Bld) 26.6 % [facility] MCH (RBC) [Entitic mass] 29.9 pg 26.0 - 34.0 pg [facility] MCHC (RBC) [Mass/Vol] 34.0 g/dL 30.5 - 36.0 g/dL [facility] MCV (RBC) [Entitic vol] 87.9 fL 80.0 - 100.0 fL [facility] Monocytes (Bld) [#/Vol] 0.40 10*3/uL <0.87 k/uL [facility] Monocytes/100 WBC (Bld) 6.6 % C [facility] Neutrophils (Bld) [#/Vol] 3.97 10*3/uL 1.45 - 7.50 k/uL [facility] Neutrophils/100 WBC (Bld) 65.5 % [facility] Nucleated RBC (Bld) [#/Vol] 10*3/uL <0.01 k/uL [facility] Nucleated RBC/100 WBC (Bld) [Ratio] 0.0 /100 WBC [facility] Platelet mean volume (Bld) [Entitic vol] 10.1 fL 9.0 - 12.7 fL [facility] Platelets (Bld) [#/Vol] 263 10*3/uL 150 - 400 k/uL [facility] RBC (Bld) [#/Vol] 4.89 10*6/uL 4.20 - 6.00 m/uL [facility] WBC (Bld) [#/Vol] 6.06 10*3/uL 3.70 - 11.00 k/uL [facility] CNNURSEon 08-08-2021 CNNURSE Normal [facility] CNOVSPon 08-08-2021 CNOVSP Normal [facility] CNSWon 08-08-2021 CNSW Normal [facility] Comprehensive metabolic 2000 panelon 08-08-2021 Albumin [Mass/Vol] 4.2 g/dL Normal 3.9-4.9 [facility] Comment on above: Order Comment: Speci men Type: BLOOD SPECIMENOrdering Facility: [facility] Address: [address] [place] [address] Performed By: #### 2 4323-8, 3084-1, ####[facility] [id number] [place] [address] [place] ALP [Catalytic activity/Vol] 56 U/L Normal 38-113 [facility] Comment on above: Order Comment: Speci men Type: BLOOD SPECIMENOrdering Facility: [facility] Address: [address] [place], [place] [address] Performed By: #### 2 4323-8, 3084-, ####[facility] [id number] [address] STATES OF [place] ALT [Catalytic activity/Vol] 34 U/L Normal 10-54 [facility] Comment on above: Order Comment: Speci men Type: BLOOD SPECIMENOrdering Facility: [facility] Address: [address] [place], [place] [address] Performed By: #### 2 4323-8, 3083-03, ####[facility] [id number] [place] [address] [place] POP Anion gap [Moles/Vol] 10 mmol/L Normal 9-18 [facility] Comment on above: Order Comment: Speci men Type: BLOOD SPECIMENOrdering Facility: [facility] Address: [address] [place], [place] [address] Performed By: #### 2 4323-8, 3083-03, ####[facility] [id number] [place] [id number] [place] AST [Catalytic activity/Vol] 18 U/L Normal 14-40 [facility] Comment on above: Order Comment: Speci men Type: BLOOD SPECIMENOrdering Facility: [facility] Address: [address] [place] [address] Performed By: #### 2 4323-8, 3083-1, ####[facility] [id number] [address] [address] [place] Bilirubin [Mass/Vol] 0.5 mg/dL Normal 0.2-1.3 [facility] Comment on above: Order Comment: Speci men Type: BLOOD SPECIMENOrdering Facility: [facility] Address: [address] [place], [place] [address] Performed By: #### 2 4323-8, 3083-, ####[facility] [id number] [place] [address] [place] Calcium [Mass/Vol] 9.6 mg/dL Normal 8.5-10.2 [facility] Comment on above: Order Comment: Speci men Type: BLOOD SPECIMENOrdering Facility: [facility] Address: [address] [place], [place] [address] Performed By: #### 2 4323-8, 3083-03, ####[facility] [id number] [place] [address] [place] Chloride [Moles/Vol] 103 mmol/L Normal 97-105 [facility] Comment on above: Order Comment: Speci men Type: BLOOD SPECIMENOrdering Facility: [facility] Address: [address] [place], [place] [address] Performed By: #### 2 4323-8, 3083-03, ####[facility] [id number] [place] [id number] [place] CO2 [Moles/Vol] 26 mmol/L Normal 22-30 [facility] Comment on above: Order Comment: Speci men Type: BLOOD SPECIMENOrdering Facility: [facility] Address: [address] [place], [place] [address] Performed By: #### 2 4323-8, 3083-03, ####[facility] [id number] [place] [address] [place] Creatinine [Mass/Vol] 1.24 mg/dL High 0.73-1.22 [facility] Comment on above: Order Comment: Aaliyah gibson Type: BLOOD SPECIMENOrdering Facility: [facility] Address: [address] [place], [place] [phone] Performed By: #### 2 4323-8, 3084-1, ####[facility] [id number] [place] [address] [place] ESTIMATED GLOMERULAR FILTRATION RATE 68 mL/min/1.73m??? Normal >=60 [facility] Comment on above: Order Comment: Aaliyah gibson Type: BLOOD SPECIMENOrdering Facility: [facility] Address: [address] [place] [address] Result Comment: Laurita mated Glomerular Filtration Rate [...] 2 4323-8, 3083-1, ####[facility] [id number] [place] [address] [place] Glucose [Mass/Vol] 119 mg/dL High 74-99 [facility] Comment on above: Order Comment: Aaliyah gibson Type: BLOOD SPECIMENOrdering Facility: [facility] Address: [address] [place] [address] Result Comment: The [place] [employer] (ADA) provides guidance for cutoff [...] Standards of Medical Care in Diabetes 2016, [place] [employer]. Diabetes Care. 2016.39(Suppl 1). Performed By: #### 2 4323-8, 3084-1, ####[facility] [id number] [place] [address] [place] Potassium [Moles/Vol] 4.2 mmol/L Normal 3.7-5.1 [facility] Comment on above: Order Comment: Speci men Type: BLOOD SPECIMENOrdering Facility: [facility] Address: [address] [place] [address] Performed By: #### 2 4323-8, 3083-03, ####[facility] [id number] [place] [address] [place] Protein [Mass/Vol] 6.8 g/dL Normal 6.3-8.0 [facility] Comment on above: Order Comment: Aaliyah gibson Type: BLOOD SPECIMENOrdering Facility: [facility] Address: [address] [place] [address] Performed By: #### 2 4323-8, 3083-03, ####[facility] [id number] [place] [address] [place] Sodium [Moles/Vol] 139 mmol/L Normal 136-144 [facility] Comment on above: Order Comment: Speci men Type: BLOOD SPECIMENOrdering Facility: [facility] Address: [address] [place] [address] Performed By: #### 2 4323-8, 30806-06, ####[facility] [id number] [place] [id number] [place] Urea nitrogen [Mass/Vol] 15 mg/dL Normal 9-24 [facility] Comment on above: Order Comment: Speci men Type: BLOOD SPECIMENOrdering Facility: [facility] Address: [address] [place], [place] [address] Performed By: #### 2 4323-8, 3084-1, 56915-4 ####[facility] [id number] [address] STATES OF [facility] Albumin [Mass/Vol] 4.2 g/dL 3.9 - 4.9 g/dL [facility] ALP [Catalytic activity/Vol] 56 U/L 38 - 113 U/L [facility] ALT [Catalytic activity/Vol] 34 U/L 10 - 54 U/L [facility] Anion gap [Moles/Vol] 10 mmol/L 9 - 18 mmol/L [facility] AST [Catalytic activity/Vol] 18 U/L 14 - 40 U/L [facility] Bilirubin [Mass/Vol] 0.5 mg/dL 0.2 - 1 .3 mg/dL [facility] Calcium [Mass/Vol] 9.6 mg/dL 8.5 - 10. 2 mg/dL [facility] Chloride [Moles/Vol] 103 mmol/L 97 - 10 5 mmol/L [facility] CO2 [Moles/Vol] 26 mmol/L 22 - 30 mmol/L [facility] Creatinine [Mass/Vol] 1.24 mg/dL High 0.73 - 1.22 mg/dL [facility] Estimated Glomerular Filtration Rate 68 mL/min/1.73m >=60 mL/min/1.7 3m [facility] Glucose [Mass/Vol] 119 mg/dL High 74 - 99 mg/dL [facility] Potassium [Moles/Vol] 4.2 mmol/L 3.7 - 5.1 mmol/L [facility] Protein [Mass/Vol] 6.8 g/dL 6.3 - 8.0 g/dL [facility] Sodium [Moles/Vol] 139 mmol/L 136 - 144 mmol/L [facility] Urea nitrogen [Mass/Vol] 15 mg/dL 9 - 24 mg/dL [facility] LD LACTATE DEHYDROon 022 LDH [Catalytic activity/Vol] 232 U/L High 135 - 225 U/L [facility] LDH SerPl-cCncon 08-08-2021 LDH [Catalytic activity/Vol] 232 U/L High 135-225 [facility] Comment on above: Order Comment: Aaliyah gibson Type: BLOOD SPECIMENOrdering Facility: [facility] Address: [address] [place] [address] Performed By: #### 2 532-0 ####[facility] [id number] [place] [address] [place] MAGNESIUM BLDon 08-08-2021 Magnesium [Mass/Vol] 2.1 mg/dL 1.7 - 2 .3 mg/dL [facility] Magnesium SerPl-mCncon 08-08 Magnesium [Mass/Vol] 2.1 mg/dL Normal 1.7-2.3 [facility] Comment on above: Order Comment: Aaliyah gibson Type: BLOOD SPECIMENOrdering Facility: [facility] Address: [address] [place] [address] Performed By: #### 2 4323-8, 3084-1, 66506-6 ####[facility] [place] [id number] [place] [address] [place] PHOSPHORUS INORGANICon 08-08 Phosphate [Mass/Vol] 4.1 mg/dL 2.7 - 4 .8 mg/dL [facility] PT panel Coag (PPP)on 2021 INR Coag (PPP) [Relative time] 1.0 {INR} Normal 0.9-1.3 [facility] Comment on above: Order Comment: Aaliyah gibson Type: BLOOD SPECIMENOrdering Facility: [facility] Address: [address] [place], [place] [address] Result Comment: Constanza min K Antagonist (VKA) Therapeutic Range: INR 2 to 3 (Target INR of 2.5)Note: For patients treated with VKA drugs, such as warfarin, the [place] [employer] 2012 Guideline recommends [...] al. Chest 2012, 141:7S-47SNishimura RA, et al. [facility] 2017, 70: 252-289 Performed By: #### 3 4528-0, 81831-2 ####[facility] [id number] [place] [address] [place] PT Coag (PPP) [Time] 10.7 s Normal 9.7-13.0 [facility] Comment on above: Order Comment: Aaliyah gibson Type: BLOOD SPECIMENOrdering Facility: [facility] Address: [address] [place] [address] Performed By: #### 3 4528-0, 03084-1 ####[facility] [id number] [place] [address] [place] INR Coag (PPP) [Relative time] 1.0 {INR} 0.9 - 1.3 [facility] PT Coag (PPP) [Time] 10.7 s 9.7 - 1 3.0 sec [facility] Phosphate SerPl-mCncon 08-08 Phosphate [Mass/Vol] 4.1 mg/dL Normal 2.7-4.8 [facility] Comment on above: Order Comment: Aaliyah gibson Type: BLOOD SPECIMENOrdering Facility: [facility] Address: [address] [place] [address] Performed By: #### 2 777-1 ####[facility] [id number] [place] [address] [place] URIC ACID BLOODon 08-08-2021 Urate [Mass/Vol] 7.5 mg/dL 4.0 - 8.1 mg/dL [facility] Urate SerPl-mCncon Urate [Mass/Vol] 7.5 mg/dL Normal 4.0-8.1 [facility] Comment on above: Order Comment: Speci men Type: BLOOD SPECIMENOrdering Facility: [facility] Address: [address] [place] [address] Performed By: #### 2 4323-8, 3084-1, 70621-1 ####[facility] [id number] [place] [address] [place] aPTT PPPon 08-08-2021 aPTT Coag (PPP) [Time] 29.9 s Normal 23.0-32.4 [facility] Comment on above: Order Comment: Speci men Type: BLOOD SPECIMENOrdering Facility: [facility] Address: [address] [place] [address] Performed By: #### 3 4528-0, 68708-0 ####[facility] [id number] [place] [address] [place] CBC W Auto Differential pane l (Bld)on 08-06-2021 Basophils (Bld) [#/Vol] 0.03 10*3/uL Normal <0.11 [facility] Comment on above: Order Comment: Speci men Type: BLOOD SPECIMENOrdering Facility: [facility] Address: [address] [place] [address] Performed By: #### 5 7021-8 ####[facility] [place] [id number] [address] STATES OF [facility] Basophils/100 WBC (Bld) 0.5 % Normal C [facility] Comment on above: Order Comment: Speci men Type: BLOOD SPECIMENOrdering Facility: [facility] Address: [address] [place] [address] Performed By: #### 5 7021-8 ####[facility] [id number] [place] [address] [place] Differential cell count method Nom (Bld) Auto Normal [facility] Comment on above: Order Comment: Speci men Type: BLOOD SPECIMENOrdering Facility: [facility] Address: [address] [place] [address] Performed By: #### 5 7021-8 ####[facility] [place] [id number] [place] [address] [place] Eosinophils (Bld) [#/Vol] 0.05 10*3/uL Normal <0.46 [facility] Comment on above: Order Comment: Speci men Type: BLOOD SPECIMENOrdering Facility: [facility] Address: [address] [place] [address] Performed By: #### 5 7021-8 ####[facility] [place] [id number] [place] [address] [place] Eosinophils/100 WBC (Bld) 0.8 % Normal [facility] Comment on above: Order Comment: Speci men Type: BLOOD SPECIMENOrdering Facility: [facility] Address: [address] [place] [address] Performed By: #### 5 7021-8 ####[facility] [id number] [place] [address] [place] Erythrocyte distribution width (RBC) [Ratio] 15.7 % High 11.5-15.0 [facility] Comment on above: Order Comment: Speci men Type: BLOOD SPECIMENOrdering Facility: [facility] Address: [address] [place] [address] Performed By: #### 5 7021-8 ####[facility] [id number] [place] [address] [place] Hematocrit (Bld) [Volume fraction] 43.7 % Normal 39.0-51.0 [facility] Comment on above: Order Comment: Speci men Type: BLOOD SPECIMENOrdering Facility: [facility] Address: [address] [place] [address] Performed By: #### 5 7021-8 ####[facility] [id number] [place] [address] [place] Hemoglobin (Bld) [Mass/Vol] 14.8 g/dL Normal 13.0-17.0 [facility] Comment on above: Order Comment: Speci men Type: BLOOD SPECIMENOrdering Facility: [facility] Address: [address] [place] [address] Performed By: #### 5 7021-8 ####[facility] [place] [id number] [place] [address] [address] [facility] IMMATURE GRAN % 0.5 % Normal [facility] Comment on above: Order Comment: Speci men Type: BLOOD SPECIMENOrdering Facility: [facility] Address: [address] [place] [address] Performed By: #### 5 7021-8 ####[facility] [id number] [place] [address] IMMATURE GRAN ABS 0.03 k/uL Normal <0.10 [facility] Comment on above: Order Comment: Speci men Type: BLOOD SPECIMENOrdering Facility: [facility] Address: [address] [place], [place] [address] Performed By: #### 5 7021-8 ####[facility] [id number] [place] [address] [place] Lymphocytes (Bld) [#/Vol] 1.42 10*3/uL Normal 1.00-4.00 [facility] Comment on above: Order Comment: Speci men Type: BLOOD SPECIMENOrdering Facility: [facility] Address: [address] [place], [place] [address] Performed By: #### 5 7021-8 ####[facility] [id number] [address] STATES [facility] Lymphocytes/100 WBC (Bld) 23.2 % Normal [facility] Comment on above: Order Comment: Speci men Type: BLOOD SPECIMENOrdering Facility: [facility] Address: [address] [place] [address] Performed By: #### 5 7021-8 ####[facility] [id number] [place] [address] [place] MCH (RBC) [Entitic mass] 29.9 pg Normal 26.0-34.0 [facility] Comment on above: Order Comment: Speci men Type: BLOOD SPECIMENOrdering Facility: [facility] Address: [address] [place] [address] Performed By: #### 5 7021-8 ####[facility] [id number] [place] [address] MCHC (RBC) [Mass/Vol] 33.9 g/dL Normal 30.5-36.0 [facility] Comment on above: Order Comment: Speci men Type: BLOOD SPECIMENOrdering Facility: [facility] Address: [address] [place] [address] Performed By: #### 5 7021-8 ####[facility] [id number] [address] MCV (RBC) [Entitic vol] 88.3 fL Normal 80.0-100.0 C [facility] Comment on above: Order Comment: Speci men Type: BLOOD SPECIMENOrdering Facility: [facility] Address: [address] [place] [address] Performed By: #### 5 7021-8 ####[facility] [id number] [address] [place] [address] [place] Monocytes (Bld) [#/Vol] 0.50 10*3/uL Normal <0.87 [facility] Comment on above: Order Comment: Speci men Type: BLOOD SPECIMENOrdering Facility: [facility] Address: [address] [place] [address] Performed By: #### 5 7021-8 ####[facility] [id number] [place] [address] [place] Monocytes/100 WBC (Bld) 8.2 % Normal [facility] Comment on above: Order Comment: Speci men Type: BLOOD SPECIMENOrdering Facility: [facility] Address: [address] [place], [place] [address] Performed By: #### 5 7021-8 ####[facility] [id number] [place] [address] [place] Neutrophils (Bld) [#/Vol] 4.08 10*3/uL Normal 1.45-7.50 [facility] Comment on above: Order Comment: Speci men Type: BLOOD SPECIMENOrdering Facility: [facility] Address: [address] [place], [place] [address] Performed By: #### 5 7021-8 ####[facility] [id number] [place] [address] [place] Neutrophils/100 WBC (Bld) 66.8 % Normal [facility] Comment on above: Order Comment: Speci men Type: BLOOD SPECIMENOrdering Facility: [facility] Address: [address] [place], [place] [address] Performed By: #### 5 7021-8 ####[facility] [id number] [place] [address] [place] Nucleated RBC (Bld) [#/Vol] 10*3/uL Normal <0.01 [facility] Comment on above: Order Comment: Speci men Type: BLOOD SPECIMENOrdering Facility: [facility] Address: [address] [place], [place] [address] Performed By: #### 5 7021-8 ####[facility] [place] [id number] [place] [address] Nucleated RBC/100 WBC (Bld) [Ratio] 0.0 /100 WBC Normal [facility] Comment on above: Order Comment: Speci men Type: BLOOD SPECIMENOrdering Facility: [facility] Address: [address] [place], [place] [address] Performed By: #### 5 7021-8 ####[facility] [place] [id number] [place] [address] [place] Platelet mean volume (Bld) [Entitic vol] 10.2 fL Normal 9.0-12.7 [facility] Comment on above: Order Comment: Speci men Type: BLOOD SPECIMENOrdering Facility: [facility] Address: [address] [place], [place] [address] Performed By: #### 5 7021-8 ####[facility] [place] [id number] [place] [address] [place] Platelets (Bld) [#/Vol] 262 10*3/uL Normal 150-400 [facility] Comment on above: Order Comment: Speci men Type: BLOOD SPECIMENOrdering Facility: [facility] Address: [address] [place], [place] [address] Performed By: #### 5 7021-8 ####[facility] [id number] [place] [address] [place] RBC (Bld) [#/Vol] 4.95 10*6/uL Normal 4.20-6.00 [facility] Comment on above: Order Comment: Speci men Type: BLOOD SPECIMENOrdering Facility: [facility] Address: [address] [place], [place] [address] Performed By: #### 5 7021-8 ####[facility] [id number] [place] [address] [place] WBC (Bld) [#/Vol] 6.11 10*3/uL Normal 3.70-11.00 [facility] Comment on above: Order Comment: Speci men Type: BLOOD SPECIMENOrdering Facility: [facility] Address: [address] [place] [address] Performed By: #### 5 7021-8 ####[facility] [id number] [place] [address] [place] CNNURSEon 08-06-2021 CNNURSE Normal [facility] CNOVSPon 08-06-2021 CNOVSP Normal [facility] CT ABD/PEL W IVCONon 022 CT ABD/PEL W IVCON Normal [facility] Comprehensive metabolic 2000 panelon 08-06-2021 Albumin [Mass/Vol] 4.3 g/dL Normal 3.9-4.9 [facility] Comment on above: Order Comment: Speci men Type: BLOOD SPECIMENOrdering Facility: [facility] Address: [address] [place], [place] [address] Performed By: #### 2 4323-8, 1, ####[facility] [place] [id number] [place] [address] [place] ALP [Catalytic activity/Vol] 64 U/L Normal 38-113 [facility] Comment on above: Order Comment: Speci men Type: BLOOD SPECIMENOrdering Facility: [facility] Address: [address] [place], [place] [address] Performed By: #### 2 4323-8, 3083-, ####[facility] [id number] [place] [address] [place] ALT [Catalytic activity/Vol] 52 U/L Normal 10-54 [facility] Comment on above: Order Comment: Speci men Type: BLOOD SPECIMENOrdering Facility: [facility] Address: [address] [place], [place] [address] Performed By: #### 2 4323-8, 3083-1, ####[facility] [id number] [place] [address] [place] Anion gap [Moles/Vol] 9 mmol/L Normal 9-18 [facility] Comment on above: Order Comment: Speci men Type: BLOOD SPECIMENOrdering Facility: [facility] Address: [address] [place], [place] [address] Performed By: #### 2 4323-8, 3083-, ####[facility] [id number] [place] [address] [place] AST [Catalytic activity/Vol] 46 U/L High 14-40 [facility] Comment on above: Order Comment: Speci men Type: BLOOD SPECIMENOrdering Facility: [facility] Address: [address] [place] [address] Performed By: #### 2 4323-8, 3083-03, ####[facility] [id number] [place] [address] [place] Bilirubin [Mass/Vol] 0.3 mg/dL Normal 0.2-1.3 [facility] Comment on above: Order Comment: Speci men Type: BLOOD SPECIMENOrdering Facility: [facility] Address: [address] [place], [place] [address] Performed By: #### 2 4323-8, 3081, ####[facility] [id number] [place] [address] [place] Calcium [Mass/Vol] 9.1 mg/dL Normal 8.5-10.2 [facility] Comment on above: Order Comment: Speci men Type: BLOOD SPECIMENOrdering Facility: [facility] Address: [address] [place] [address] Performed By: #### 2 4323-8, 308-1, ####[facility] [id number] [place] [address] [place] Chloride [Moles/Vol] 107 mmol/L High 97-105 [facility] Comment on above: Order Comment: Speci men Type: BLOOD SPECIMENOrdering Facility: [facility] Address: [address] [place] [address] Performed By: #### 2 4323-8, 3083-, ####[facility] [id number] [place] [address] [place] CO2 [Moles/Vol] 25 mmol/L Normal 22-30 [facility] Comment on above: Order Comment: Speci men Type: BLOOD SPECIMENOrdering Facility: [facility] Address: [address] [place] [address] Performed By: #### 2 4323-8, 3083-, ####[facility] [id number] [place] [address] [place] Creatinine [Mass/Vol] 1.24 mg/dL High 0.73-1.22 [facility] Comment on above: Order Comment: Speci men Type: BLOOD SPECIMENOrdering Facility: [facility] Address: [address] [place] [address] Performed By: #### 2 4323-8, 3081, ####[facility] [id number] [place] [address] [place] ESTIMATED GLOMERULAR FILTRATION RATE 68 mL/min/1.73m??? Normal >=60 [facility] Comment on above: Order Comment: Speci men Type: BLOOD SPECIMENOrdering Facility: [facility] Address: [address] [place], [place] [address] Result Comment: Laurita mated Glomerular Filtration Rate [...] Performed By: #### 2 4323-8, 3083-1, ####[facility] [id number] [place] [address] [place] Glucose [Mass/Vol] 121 mg/dL High 74-99 [facility] Comment on above: Order Comment: Speci men Type: BLOOD SPECIMENOrdering Facility: [facility] Address: [address] [place], [place] [address] Result Comment: The [place] [employer] (ADA) provides guidance for cutoff [...] Standards of Medical Care in Diabetes 2016, [place] [employer]. Diabetes Care. 2016.39(Suppl 1). Performed By: #### 2 4323-8, 308-1, ####[facility] [id number] [place] [id number] [place] Potassium [Moles/Vol] 4.6 mmol/L Normal 3.7-5.1 [facility] Comment on above: Order Comment: Speci men Type: BLOOD SPECIMENOrdering Facility: [facility] Address: [address] [place], [place] [address] Performed By: #### 2 4323-8, 3084-1, ####[facility] [id number] [place] [address] [place] Protein [Mass/Vol] 6.9 g/dL Normal 6.3-8.0 [facility] Comment on above: Order Comment: Speci men Type: BLOOD SPECIMENOrdering Facility: [facility] Address: [address] [place], [place] [address] Performed By: #### 2 4323-8, 3084-1, ####[facility] [id number] [place] [address] [place] Sodium [Moles/Vol] 141 mmol/L Normal 136-144 [facility] Comment on above: Order Comment: Speci men Type: BLOOD SPECIMENOrdering Facility: [facility] Address: [address] [place], [place] [address] Performed By: #### 2 4323-8, 3084-1, ####[facility] [id number] [place] [address] [place] Urea nitrogen [Mass/Vol] 20 mg/dL Normal 9-24 [facility] Comment on above: Order Comment: Speci men Type: BLOOD SPECIMENOrdering Facility: [facility] Address: [address] [place] [address] Performed By: #### 2 4323-8, 308-1, ####[facility] [id number] [place] [id number] [place] LDH SerPl-cCncon 08-06-2021 LDH [Catalytic activity/Vol] 260 U/L High 135-225 [facility] Comment on above: Order Comment: Speci men Type: BLOOD SPECIMENOrdering Facility: [facility] Address: [address] [place] [address] Performed By: #### 2 532-0 ####[facility] [id number] [address] Magnesium SerPl-mCncon 08-06 Magnesium [Mass/Vol] 2.4 mg/dL High 1.7-2.3 [facility] Comment on above: Order Comment: Speci men Type: BLOOD SPECIMENOrdering Facility: [facility] Address: [address] [place] [address] Performed By: #### 2 4323-8, 3084-1, 79789-5 ####[facility] [id number] [address] PT panel Coag (PPP)on 2021 INR Coag (PPP) [Relative time] 1.0 {INR} Normal 0.9-1.3 [facility] Comment on above: Order Comment: Speci men Type: BLOOD SPECIMENOrdering Facility: [facility] Address: [address] [place] [address] Result Comment: Constanza min K Antagonist (VKA) Therapeutic Range: INR 2 to 3 (Target INR of 2.5)Note: For patients treated with VKA drugs, such as warfarin, the [employer] 2012 Guideline recommends [...] al. Chest 2012, 141:7S-47SCaitie WHALEN, et al. [facility] 2017, 70: 252-289 Performed By: #### 3 4528-0, 24102-9 ####[facility] LABIA [id number] [place] [address] [place] PT Coag (PPP) [Time] 10.7 s Normal 9.7-13.0 [facility] Comment on above: Order Comment: Speci men Type: BLOOD SPECIMENOrdering Facility: [facility] Address: [address] [place] [address] Performed By: #### 3 4528-0, 22434-1 ####[facility] [id number] [place] [address] [place] Phosphate SerPl-mCncon 08-06 Phosphate [Mass/Vol] 3.8 mg/dL Normal 2.7-4.8 [facility] Comment on above: Order Comment: Speci men Type: BLOOD SPECIMENOrdering Facility: [facility] Address: [address] [place] [address] Performed By: #### 2 777-1 ####[facility] [id number] [place] [address] [place] T3 FREE BLDon 08-06-2021 Free T3 [Mass/Vol] 2.9 pg/mL Normal 2.3-4.1 [facility] Comment on above: Order Comment: Speci men Type: BLOOD SPECIMENOrdering Facility: [facility] Address: [address] [place] [address] Performed By: #### F T4, FREET3 ####[facility] [id number] [place] [address] [place] T4 FREE/FREE THYROXon 2021 Free T4 [Mass/Vol] 1.0 ng/dL Normal 0.9-1.7 [facility] Comment on above: Order Comment: Speci men Type: BLOOD SPECIMENOrdering Facility: [facility] Address: [address] [place] [address] Performed By: #### F T4, FREET3 ####[facility] [id number] [place] [address] [place] TSH SerPl-aCncon 08-06-2021 TSH Qn 1.770 m[IU]/L Normal 0.270-4.20 0 [facility] Comment on above: Order Comment: Speci men Type: BLOOD SPECIMENOrdering Facility: [facility] Address: [address] [place] [address] Performed By: #### 3 016-3 ####[facility] [id number] [place] [address] [place] Urate SerPl-mCncon 2 Urate [Mass/Vol] 7.2 mg/dL Normal 4.0-8.1 [facility] Comment on above: Order Comment: Speci men Type: BLOOD SPECIMENOrdering Facility: [facility] Address: [address] [place] [address] Performed By: #### 2 4323-8, 3084-1, 61895-8 ####[facility] [id number] [place] [address] [place] aPTT PPPon 08-06-2021 aPTT Coag (PPP) [Time] 28.8 s Normal 23.0-32.4 [facility] Comment on above: Order Comment: Speci men Type: BLOOD SPECIMENOrdering Facility: [facility] Address: [address] [place] [address] Performed By: #### 3 4528-0, 91252-1 ####[facility] [id number] [place] [address] [place] CNPNon 08-03-2021 CNPN Normal [facility] CNOVon 07-31-2021 CNOV Normal [facility] CNOV Normal [facility] NURSING PROGon 07-31-2021 NURSING PROG Normal [facility] CNPNon 07-30-2021 CNPN Normal [facility] CNPNon 07-29-2021 CNPN Normal [facility] CNPNon 07-25-2021 CNPN Normal [facility] CBC W Auto Differential pane l (Bld)on 07-24-2021 Basophils (Bld) [#/Vol] 0.04 10*3/uL Normal <0.11 [facility] Comment on above: Order Comment: Speci men Type: BLOOD SPECIMENOrdering Facility: [facility] Address: [address] [place] [address] Performed By: #### 5 7021-8 ####[facility] [id number] [place] [address] [place] Basophils/100 WBC (Bld) 0.3 % Normal [facility] Comment on above: Order Comment: Speci men Type: BLOOD SPECIMENOrdering Facility: [facility] Address: [address] [place] [address] Performed By: #### 5 7021-8 ####[facility] [id number] [place] [address] [place] Differential cell count method Nom (Bld) Auto Normal [facility] Comment on above: Order Comment: Speci men Type: BLOOD SPECIMENOrdering Facility: [facility] Address: [address] [place] [address] Performed By: #### 5 7021-8 ####[facility] [id number] [place] [address] [place] Eosinophils (Bld) [#/Vol] 10*3/uL Normal <0.46 [facility] Comment on above: Order Comment: Speci men Type: BLOOD SPECIMENOrdering Facility: [facility] Address: [address] [place] [address] Performed By: #### 5 7021-8 ####[facility] [id number] [address] [address] [place] Eosinophils/100 WBC (Bld) 0.1 % Normal [facility] Comment on above: Order Comment: Speci men Type: BLOOD SPECIMENOrdering Facility: [facility] Address: [address] [place], [place] [address] Performed By: #### 5 7021-8 ####[facility] [id number] [address] [place] Erythrocyte distribution width (RBC) [Ratio] 15.9 % High 11.5-15.0 [facility] Comment on above: Order Comment: Speci men Type: BLOOD SPECIMENOrdering Facility: [facility] Address: [address] [place], [place] [address] Performed By: #### 5 7021-8 ####[facility] [id number] [place] [address] [place] Hematocrit (Bld) [Volume fraction] 43.2 % Normal 39.0-51.0 [facility] Comment on above: Order Comment: Speci men Type: BLOOD SPECIMENOrdering Facility: [facility] Address: [address] [place], [place] [address] Performed By: #### 5 7021-8 ####[facility] [id number] [place] [address] [place] Hemoglobin (Bld) [Mass/Vol] 14.7 g/dL Normal 13.0-17.0 [facility] Comment on above: Order Comment: Speci men Type: BLOOD SPECIMENOrdering Facility: [facility] Address: [address] [place], [place] [address] Performed By: #### 5 7021-8 ####[facility] [id number] [place] [address] [place] IMMATURE GRAN % 0.9 % Normal [facility] Comment on above: Order Comment: Speci men Type: BLOOD SPECIMENOrdering Facility: [facility] Address: [address] [place], [place] [address] Performed By: #### 5 7021-8 ####[facility] [id number] [place] [address] [place] IMMATURE GRAN ABS 0.10 k/uL High <0.10 [facility] Comment on above: Order Comment: Speci men Type: BLOOD SPECIMENOrdering Facility: [facility] Address: [address] [place], [place] [address] Performed By: #### 5 7021-8 ####[facility] [id number] [place] [address] [facility] Lymphocytes (Bld) [#/Vol] 2.16 10*3/uL Normal 1.00-4.00 [facility] Comment on above: Order Comment: Speci men Type: BLOOD SPECIMENOrdering Facility: [facility] Address: [address] [place], [place] [address] Performed By: #### 5 7021-8 ####[facility] [id number] [place] [address] Lymphocytes/100 WBC (Bld) 18.7 % Normal [facility] Comment on above: Order Comment: Speci men Type: BLOOD SPECIMENOrdering Facility: [facility] Address: [address] [place], [place] [address] Performed By: #### 5 7021-8 ####[facility] [id number] [place] [address] [place] MCH (RBC) [Entitic mass] 29.9 pg Normal 26.0-34.0 [facility] Comment on above: Order Comment: Speci men Type: BLOOD SPECIMENOrdering Facility: [facility] Address: [address] [place], [place] [address] Performed By: #### 5 7021-8 ####[facility] [id number] [place] [address] [place] MCHC (RBC) [Mass/Vol] 34.0 g/dL Normal 30.5-36.0 [facility] Comment on above: Order Comment: Speci men Type: BLOOD SPECIMENOrdering Facility: [facility] Address: [address] [place] [address] Performed By: #### 5 7021-8 ####[facility] [id number] [place] [address] [address] [facility] MCV (RBC) [Entitic vol] 88.0 fL Normal 80.0-100.0 [facility] Comment on above: Order Comment: Speci men Type: BLOOD SPECIMENOrdering Facility: [facility] Address: [address] [place] [address] Performed By: #### 5 7021-8 ####[facility] [id number] [place] [address] [place] Monocytes (Bld) [#/Vol] 0.79 10*3/uL Normal <0.87 [facility] Comment on above: Order Comment: Speci men Type: BLOOD SPECIMENOrdering Facility: [facility] Address: [address] [place], [place] [address] Performed By: #### 5 7021-8 ####[facility] [id number] [place] [address] [place] Monocytes/100 WBC (Bld) 6.8 % Normal [facility] Comment on above: Order Comment: Speci men Type: BLOOD SPECIMENOrdering Facility: [facility] Address: [address] [place], [place] [address] Performed By: #### 5 7021-8 ####[facility] [id number] [place] [address] [place] Neutrophils (Bld) [#/Vol] 8.45 10*3/uL High 1.45-7.50 [facility] Comment on above: Order Comment: Speci men Type: BLOOD SPECIMENOrdering Facility: [facility] Address: [address] [place], [place] [address] Performed By: #### 5 7021-8 ####[facility] [id number] [place] [address] Neutrophils/100 WBC (Bld) 73.2 % Normal [facility] Comment on above: Order Comment: Speci men Type: BLOOD SPECIMENOrdering Facility: [facility] Address: [address] [place], [place] [address] Performed By: #### 5 7021-8 ####[facility] [id number] [place] [address] [place] Nucleated RBC (Bld) [#/Vol] 10*3/uL Normal <0.01 [facility] Comment on above: Order Comment: Speci men Type: BLOOD SPECIMENOrdering Facility: [facility] Address: [address] [place], [place] [address] Performed By: #### 5 7021-8 ####[facility] [id number] [place] [address] Nucleated RBC/100 WBC (Bld) [Ratio] 0.0 /100 WBC Normal [facility] Comment on above: Order Comment: Speci men Type: BLOOD SPECIMENOrdering Facility: [facility] Address: [address] [place], [place] [address] Performed By: #### 5 7021-8 ####[facility] [id number] [place] [address] Platelet mean volume (Bld) [Entitic vol] 10.5 fL Normal 9.0-12.7 [facility] Comment on above: Order Comment: Speci men Type: BLOOD SPECIMENOrdering Facility: [facility] Address: [address] [place], [place] [address] Performed By: #### 5 7021-8 ####[facility] [id number] [place] [address] [place] Platelets (Bld) [#/Vol] 241 10*3/uL Normal 150-400 [facility] Comment on above: Order Comment: Speci men Type: BLOOD SPECIMENOrdering Facility: [facility] Address: [address] [place] [address] Performed By: #### 5 7021-8 ####[facility] [id number] [place] [address] [place] RBC (Bld) [#/Vol] 4.91 10*6/uL Normal 4.20-6.00 [facility] Comment on above: Order Comment: Speci men Type: BLOOD SPECIMENOrdering Facility: [facility] Address: [address] [place] [address] Performed By: #### 5 7021-8 ####[facility] [id number] [place] [address] [place] WBC (Bld) [#/Vol] 11.55 10*3/uL High 3.70-11.00 [facility] Comment on above: Order Comment: Speci men Type: BLOOD SPECIMENOrdering Facility: [facility] Address: [address] [place] [address] Performed By: #### 5 7021-8 ####[facility] [id number] [place] [address] [place] CNNURSEon 07-24-2021 CNNURSE Normal [facility] CNOVSPon 07-24-2021 CNOVSP Normal [facility] CNPNon 07-24-2021 CNPN Normal [facility] Comprehensive metabolic 2000 panelon 07-24-2021 Albumin [Mass/Vol] 4.0 g/dL Normal 3.9-4.9 [facility] Comment on above: Order Comment: Speci men Type: BLOOD SPECIMENOrdering Facility: [facility] Address: [address] [place], [place] [address] Performed By: #### 2 4323-8, 54849-2, 3083- ####[facility] LABCLIA [id number] [place] [id number] [place] ALP [Catalytic activity/Vol] 64 U/L Normal 38-113 [facility] Comment on above: Order Comment: Speci men Type: BLOOD SPECIMENOrdering Facility: [facility] Address: [address] [place], [place] [address] Performed By: #### 2 4323-8, , 3083-03 ####[facility] LABCLIA [id number] [place] [address] [place] ALT [Catalytic activity/Vol] 36 U/L Normal 10-54 [facility] Comment on above: Order Comment: Speci men Type: BLOOD SPECIMENOrdering Facility: [facility] Address: [address] [place], [place] [address] Performed By: #### 2 4323-8, , 3083-03 ####[facility] LABCLIA [id number] [place] [address] [place] Anion gap [Moles/Vol] 11 mmol/L Normal 9-18 [facility] Comment on above: Order Comment: Speci men Type: BLOOD SPECIMENOrdering Facility: [facility] Address: [address] [place], [place] [address] Performed By: #### 2 4323-8, 88554-1, 3083-03 ####[facility] LABCLIA [id number] [place] [address] [place] AST [Catalytic activity/Vol] 25 U/L Normal 14-40 [facility] Comment on above: Order Comment: Speci men Type: BLOOD SPECIMENOrdering Facility: [facility] Address: [address] [place], [place] [address] Result Comment: Resu lts may be falsely increased due to interference from hemolysis. Suggest reorder as clinically indicated. Performed By: #### 2 4323-8, , 3083-03 ####[facility] LABCLIA [id number] [place] [id number] [place] Bilirubin [Mass/Vol] 0.2 mg/dL Normal 0.2-1.3 [facility] Comment on above: Order Comment: Speci men Type: BLOOD SPECIMENOrdering Facility: [facility] Address: [address] [place], [place] [address] Performed By: #### 2 4323-8, , 3083-03 ####[facility] LABIA [id number] [place] [address] [place] Calcium [Mass/Vol] 9.2 mg/dL Normal 8.5-10.2 [facility] Comment on above: Order Comment: Speci men Type: BLOOD SPECIMENOrdering Facility: [facility] Address: [address] [place], [place] [address] Performed By: #### 2 4323-8, , 3083-03 ####[facility] LABIA [id number] [place] [address] [place] Chloride [Moles/Vol] 104 mmol/L Normal 97-105 [facility] Comment on above: Order Comment: Speci men Type: BLOOD SPECIMENOrdering Facility: [facility] Address: [address] [place], [place] [address] Performed By: #### 2 4323-8, , 3083-03 ####[facility] LABCLIA [id number] [place] [id number] [place] CO2 [Moles/Vol] 26 mmol/L Normal 22-30 [facility] Comment on above: Order Comment: Speci men Type: BLOOD SPECIMENOrdering Facility: [facility] Address: [address] [place] [phone] Performed By: #### 2 4323-8, , 3083-03 ####[facility] LABCLIA [id number] [address] [address] [place] Creatinine [Mass/Vol] 1.03 mg/dL Normal 0.73-1.22 [facility] Comment on above: Order Comment: Speci men Type: BLOOD SPECIMENOrdering Facility: [facility] Address: [address] [place], [place] [address] Performed By: #### 2 4323-8, , 3083-03 ####[facility] LABIA [id number] [place] [address] [place] ESTIMATED GLOMERULAR FILTRATION RATE 85 mL/min/1.73m??? Normal >=60 [facility] Comment on above: Order Comment: Speci men Type: BLOOD SPECIMENOrdering Facility: [facility] Address: [address] [place], [place] [address] Result Comment: Laurita mated Glomerular Filtration Rate [...] Performed By: #### 2 4323-8, , 3083-03 ####[facility] LABIA [id number] [address] [address] [place] Glucose [Mass/Vol] 103 mg/dL High 74-99 [facility] Comment on above: Order Comment: Speci men Type: BLOOD SPECIMENOrdering Facility: [facility] Address: [address] [place] [phone] Result Comment: The [place] [employer] (ADA) provides guidance for cutoff [...] Standards of Medical Care in Diabetes 2016, [place] [employer]. Diabetes Care. 2016.39(Suppl 1). Performed By: #### 2 4323-8, 32750-1, 3083- ####[facility] LABIA [id number] [place] [address] [place] Potassium [Moles/Vol] 4.1 mmol/L Normal 3.7-5.1 [facility] Comment on above: Order Comment: Speci men Type: BLOOD SPECIMENOrdering Facility: [facility] Address: [address] [place] [address] Performed By: #### 2 4323-8, , 3083-03 ####[facility] LABIA [id number] [place] [address] [place] Protein [Mass/Vol] 6.6 g/dL Normal 6.3-8.0 [facility] Comment on above: Order Comment: Speci men Type: BLOOD SPECIMENOrdering Facility: [facility] Address: [address] [place] [address] Performed By: #### 2 4323-8, , 3083-03 ####[facility] LABIA [id number] [place] [address] [place] Sodium [Moles/Vol] 141 mmol/L Normal 136-144 [facility] Comment on above: Order Comment: Speci men Type: BLOOD SPECIMENOrdering Facility: [facility] Address: [address] [place], [place] [address] Performed By: #### 2 4323-8, 75088-4, 3084-1 ####[facility] LABIA [id number] [place] [address] [place] Urea nitrogen [Mass/Vol] 22 mg/dL Normal 9-24 [facility] Comment on above: Order Comment: Speci men Type: BLOOD SPECIMENOrdering Facility: [facility] Address: [address] [place], [place] [address] Performed By: #### 2 4323-8, 64641-6, 3084-1 ####[facility] LABIA [id number] [place] [address] [place] LDH SerPl-cCncon 07-24-2021 LDH [Catalytic activity/Vol] 217 U/L Normal 135-225 [facility] Comment on above: Order Comment: Speci men Type: BLOOD SPECIMENOrdering Facility: [facility] Address: [address] [place] [address] Performed By: #### 2 532-0 ####[facility] [id number] [place] [address] [place] Magnesium SerPl-mCncon 07-24 Magnesium [Mass/Vol] 2.3 mg/dL Normal 1.7-2.3 [facility] Comment on above: Order Comment: Speci men Type: BLOOD SPECIMENOrdering Facility: [facility] Address: [address] [place], [place] [address] Performed By: #### 2 4323-8, 68609-6, 3084-1 ####[facility] LABIA [id number] [place] [address] [place] PT panel Coag (PPP)on 2021 INR Coag (PPP) [Relative time] 1.0 {INR} Normal 0.9-1.3 [facility] Comment on above: Order Comment: Speci men Type: BLOOD SPECIMENOrdering Facility: [facility] Address: [facility][note 2] [place] [address] Result Comment: Constanza min K Antagonist (VKA) Therapeutic Range: INR 2 to 3 (Target INR of 2.5)Note: For patients treated with VKA drugs, such as warfarin, the [employer] 2012 Guideline recommends [...] al. Chest 2012, 141:7S-47SNishnini RA, et al. [facility] 2017, 70: 252-289 Performed By: #### 3 4528-0, 24667-0 ####[facility] LABIA [id number] [place] [address] [place] PT Coag (PPP) [Time] 10.5 s Normal 9.7-13.0 [facility] Comment on above: Order Comment: Speci men Type: BLOOD SPECIMENOrdering Facility: [facility] Address: [address] [place], [place] [phone] Performed By: #### 3 4528-0, 98833-7 ####[facility] LABIA [id number] [place] [id number] [place] Phosphate SerPl-mCncon 07-24 Phosphate [Mass/Vol] 3.1 mg/dL Normal 2.7-4.8 [facility] Comment on above: Order Comment: Ronyi men Type: BLOOD SPECIMENOrdering Facility: [facility] Address: [address] [place], [place] [phone] Performed By: #### 2 777-1 ####[facility] LABCLIA [id number] [place] [address] [place] Urate SerPl-mCncon Urate [Mass/Vol] 6.4 mg/dL Normal 4.0-8.1 [facility] Comment on above: Order Comment: Speci men Type: BLOOD SPECIMENOrdering Facility: [facility] Address: [address] [place] [address] Performed By: #### 2 4323-8, 37072-0, 3084-1 ####[facility] LABIA [id number] [place] [address] [place] aPTT PPPon 07-24-2021 aPTT Coag (PPP) [Time] 27.5 s Normal 23.0-32.[address] [facility] Comment on above: Order Comment: Speci men Type: BLOOD SPECIMENOrdering Facility: [facility] Address: [address] [place] [address] Performed By: #### 3 4528-0, 41461-2 ####[facility] [id number] [place] [address] [place] CNPNon 07-23-2021 CNPN Normal [facility] ACTIVATED PTTon 07-21-2021 aPTT Coag (PPP) [Time] 29.1 s 23.0 - 32.4 sec [facility] CBC W Auto Differential pane l (Bld)on 07-21-2021 Basophils (Bld) [#/Vol] 0.04 10*3/uL Normal <0.11 [facility] Comment on above: Order Comment: Speci men Type: BLOOD SPECIMENOrdering Facility: [facility] Address: [address] [place] [address] Performed By: #### 5 7021-8 ####[facility] [id number] [place] [address] [place] Basophils/100 WBC (Bld) 0.5 % Normal C [facility] Comment on above: Order Comment: Speci men Type: BLOOD SPECIMENOrdering Facility: [facility] Address: [address] [place], [place] [address] Performed By: #### 5 7021-8 ####[facility] [id number] [place] [address] [place] Differential cell count method Nom (Bld) Auto Normal [facility] Comment on above: Order Comment: Speci men Type: BLOOD SPECIMENOrdering Facility: [facility] Address: [address] [place], [place] [address] Performed By: #### 5 7021-8 ####[facility] [id number] [place] [address] [place] Eosinophils (Bld) [#/Vol] 0.05 10*3/uL Normal <0.46 [facility] Comment on above: Order Comment: Speci men Type: BLOOD SPECIMENOrdering Facility: [facility] Address: [address] [place], [place] [address] Performed By: #### 5 7021-8 ####[facility] [id number] [place] [address] [place] Eosinophils/100 WBC (Bld) 0.7 % Normal [facility] Comment on above: Order Comment: Speci men Type: BLOOD SPECIMENOrdering Facility: [facility] Address: [address] [place], [place] [address] Performed By: #### 5 7021-8 ####[facility] [id number] [place] [address] [place] Erythrocyte distribution width (RBC) [Ratio] 15.5 % High 11.5-15.0 [facility] Comment on above: Order Comment: Speci men Type: BLOOD SPECIMENOrdering Facility: [facility] Address: [address] [place], [place] [address] Performed By: #### 5 7021-8 ####[facility] [id number] [address] Hematocrit (Bld) [Volume fraction] 45.5 % Normal 39.0-51.0 [facility] Comment on above: Order Comment: Speci men Type: BLOOD SPECIMENOrdering Facility: [facility] Address: [address] [place] [address] Performed By: #### 5 7021-8 ####[facility] [id number] [place] [address] [address] [facility] Hemoglobin (Bld) [Mass/Vol] 15.1 g/dL Normal 13.0-17.0 [facility] Comment on above: Order Comment: Speci men Type: BLOOD SPECIMENOrdering Facility: [facility] Address: [address] [place] [address] Performed By: #### 5 7021-8 ####[facility] [id number] [place] [address] IMMATURE GRAN % 0.8 % Normal [facility] Comment on above: Order Comment: Speci men Type: BLOOD SPECIMENOrdering Facility: [facility] Address: [address] [place] [address] Performed By: #### 5 7021-8 ####[facility] [id number] [place] [address] IMMATURE GRAN ABS 0.06 k/uL Normal <0.10 [facility] Comment on above: Order Comment: Speci men Type: BLOOD SPECIMENOrdering Facility: [facility] Address: [address] [place] [address] Performed By: #### 5 7021-8 ####[facility] [id number] [place] [address] OF POP Lymphocytes (Bld) [#/Vol] 2.22 10*3/uL Normal 1.00-4.00 [facility] Comment on above: Order Comment: Speci men Type: BLOOD SPECIMENOrdering Facility: [facility] Address: [address] [place] [address] Performed By: #### 5 7021-8 ####[facility] [id number] [address] Lymphocytes/100 WBC (Bld) 28.9 % Normal [facility] Comment on above: Order Comment: Speci men Type: BLOOD SPECIMENOrdering Facility: [facility] Address: [address] [place] [address] Performed By: #### 5 7021-8 ####[facility] [id number] [place] [address] [place] MCH (RBC) [Entitic mass] 30.1 pg Normal 26.0-34.0 [facility] Comment on above: Order Comment: Speci men Type: BLOOD SPECIMENOrdering Facility: [facility] Address: [address] [place] [address] Performed By: #### 5 7021-8 ####[facility] [id number] [place] [address] [place] [facility] MCHC (RBC) [Mass/Vol] 33.2 g/dL Normal 30.5-36.0 [facility] Comment on above: Order Comment: Speci men Type: BLOOD SPECIMENOrdering Facility: [facility] Address: [address] [place], [place] [address] Performed By: #### 5 7021-8 ####[facility] [id number] [place] [address] MCV (RBC) [Entitic vol] 90.6 fL Normal 80.0-100.0 [facility] Comment on above: Order Comment: Speci men Type: BLOOD SPECIMENOrdering Facility: [facility] Address: [address] [place], [place] [address] Performed By: #### 5 7021-8 ####[facility] [id number] [place] [address] [place] Monocytes (Bld) [#/Vol] 0.52 10*3/uL Normal <0.87 [facility] Comment on above: Order Comment: Speci men Type: BLOOD SPECIMENOrdering Facility: [facility] Address: [address] [place] [address] Performed By: #### 5 7021-8 ####[facility] [id number] [place] [address] OF [place] Monocytes/100 WBC (Bld) 6.8 % Normal [facility] Comment on above: Order Comment: Speci men Type: BLOOD SPECIMENOrdering Facility: [facility] Address: [address] [place], [place] [address] Performed By: #### 5 7021-8 ####[facility] [id number] [place] [address] [place] Neutrophils (Bld) [#/Vol] 4.79 10*3/uL Normal 1.45-7.50 [facility] Comment on above: Order Comment: Speci men Type: BLOOD SPECIMENOrdering Facility: [facility] Address: [address] [place], [place] [address] Performed By: #### 5 7021-8 ####[facility] [id number] [address] STATES [place] Neutrophils/100 WBC (Bld) 62.3 % Normal [facility] Comment on above: Order Comment: Speci men Type: BLOOD SPECIMENOrdering Facility: [facility] Address: [address] [place], [place] [address] Performed By: #### 5 7021-8 ####[facility] [id number] [place] [address] [place] Nucleated RBC (Bld) [#/Vol] 10*3/uL Normal <0.01 [facility] Comment on above: Order Comment: Speci men Type: BLOOD SPECIMENOrdering Facility: [facility] Address: [address] [place] [address] Performed By: #### 5 7021-8 ####[facility] [id number] [place] [address] [place] Nucleated RBC/100 WBC (Bld) [Ratio] 0.0 /100 WBC Normal [facility] Comment on above: Order Comment: Speci men Type: BLOOD SPECIMENOrdering Facility: [facility] Address: [address] [place] [address] Performed By: #### 5 7021-8 ####[facility] [id number] [place] [address] [place] Platelet mean volume (Bld) [Entitic vol] 10.8 fL Normal 9.0-12.7 [facility] Comment on above: Order Comment: Speci men Type: BLOOD SPECIMENOrdering Facility: [facility] Address: [address] [place], [place] [address] Performed By: #### 5 7021-8 ####[facility] [id number] [place] [address] [place] Platelets (Bld) [#/Vol] 245 10*3/uL Normal 150-400 [facility] Comment on above: Order Comment: Speci men Type: BLOOD SPECIMENOrdering Facility: [facility] Address: [address] [place], [place] [address] Performed By: #### 5 7021-8 ####[facility] [id number] [place] [address] [place] RBC (Bld) [#/Vol] 5.02 10*6/uL Normal 4.20-6.00 [facility] Comment on above: Order Comment: Speci men Type: BLOOD SPECIMENOrdering Facility: [facility] Address: [address] [place] [address] Performed By: #### 5 7021-8 ####[facility] [id number] [address] [place] WBC (Bld) [#/Vol] 7.68 10*3/uL Normal 3.70-11.00 [facility] Comment on above: Order Comment: Speci men Type: BLOOD SPECIMENOrdering Facility: [facility] Address: [address] [place] [address] Performed By: #### 5 7021-8 ####[facility] [id number] [place] [address] [place] Abs Immature Gran 0.06 k/uL <0.10 k/uL [facility] Basophils (Bld) [#/Vol] 0.04 10*3/uL <0.11 k/uL [facility] Basophils/100 WBC (Bld) 0.5 % [facility] Differential cell count method Nom (Bld) Auto [facility] Eosinophils (Bld) [#/Vol] 0.05 10*3/uL <0.46 k/uL [facility] Eosinophils/100 WBC (Bld) 0.7 % [facility] Erythrocyte distribution width (RBC) [Ratio] 15.5 % High 11.5 - 15.0 % [facility] Hematocrit (Bld) [Volume fraction] 45.5 % 39.0 - 51.0 % [facility] Hemoglobin (Bld) [Mass/Vol] 15.1 g/dL 13.0 - 17.0 g/dL [facility] Immature Gran % 0.8 % [facility] Lymphocytes (Bld) [#/Vol] 2.22 10*3/uL 1.00 - 4.00 k/uL [facility] Lymphocytes/100 WBC (Bld) 28.9 % [facility] MCH (RBC) [Entitic mass] 30.1 pg 26.0 - 34.0 pg [facility] MCHC (RBC) [Mass/Vol] 33.2 g/dL 30.5 - 36.0 g/dL [facility] MCV (RBC) [Entitic vol] 90.6 fL 80.0 - 100.0 fL [facility] Monocytes (Bld) [#/Vol] 0.52 10*3/uL <0.87 k/uL [facility] Monocytes/100 WBC (Bld) 6.8 % [facility] Neutrophils (Bld) [#/Vol] 4.79 10*3/uL 1.45 - 7.50 k/uL [facility] Neutrophils/100 WBC (Bld) 62.3 % [facility] Nucleated RBC (Bld) [#/Vol] 10*3/uL <0.01 k/uL [facility] Nucleated RBC/100 WBC (Bld) [Ratio] 0.0 /100 WBC [facility] Platelet mean volume (Bld) [Entitic vol] 10.8 fL 9.0 - 12.7 fL [facility] Platelets (Bld) [#/Vol] 245 10*3/uL 150 - 400 k/uL [facility] RBC (Bld) [#/Vol] 5.02 10*6/uL 4.20 - 6.00 m/uL [facility] WBC (Bld) [#/Vol] 7.68 10*3/uL 3.70 - 11.00 k/uL [facility] CNNURSEon 07-21-2021 CNNURSE Normal [facility] CNPNon 07-21-2021 CNPN Normal [facility] CT CHEST W IVCONon 2 CT CHEST W IVCON Normal [facility] Comprehensive metabolic 2000 panelon 07-21-2021 Albumin [Mass/Vol] 4.0 g/dL Normal 3.9-4.9 [facility] Comment on above: Order Comment: Speci men Type: BLOOD SPECIMENOrdering Facility: [facility] Address: [address] [place], [place] [phone] Performed By: #### 1 9123-9, 57546-5, 3084-1 ####[facility] [id number] [address] [id number] [address] [place] ALP [Catalytic activity/Vol] 57 U/L Normal 38-113 [facility] Comment on above: Order Comment: Speci men Type: BLOOD SPECIMENOrdering Facility: [facility] Address: [address] [place], [place] [address] Performed By: #### 1 9123-9, 35141-9, 3083-1 ####[facility] [id number] [place] [address] [place] ALT [Catalytic activity/Vol] 26 U/L Normal 10-54 [facility] Comment on above: Order Comment: Speci men Type: BLOOD SPECIMENOrdering Facility: [facility] Address: [address] [place] [address] Performed By: #### 1 9123-9, 70567-2, 3083- ####[facility] [id number] [place] [address] [place] Anion gap [Moles/Vol] 10 mmol/L Normal 9-18 [facility] Comment on above: Order Comment: Speci men Type: BLOOD SPECIMENOrdering Facility: [facility] Address: [address] [place], [place] [address] Performed By: #### 1 9123-9, 44635-2, 3083- ####[facility] [id number] [place] [address] [place] AST [Catalytic activity/Vol] 18 U/L Normal 14-40 [facility] Comment on above: Order Comment: Speci men Type: BLOOD SPECIMENOrdering Facility: [facility] Address: [address] [place], [place] [address] Performed By: #### 1 9123-9, 30310-5, 308-1 ####[facility] [id number] [place] [id number] [place] Bilirubin [Mass/Vol] 0.5 mg/dL Normal 0.2-1.3 [facility] Comment on above: Order Comment: Speci men Type: BLOOD SPECIMENOrdering Facility: [facility] Address: [address] [place], [place] [address] Performed By: #### 1 9123-9, 51402-6, 3083- ####[facility] [id number] [place] [address] [place] Calcium [Mass/Vol] 9.4 mg/dL Normal 8.5-10.2 [facility] Comment on above: Order Comment: Speci men Type: BLOOD SPECIMENOrdering Facility: [facility] Address: [address] [place] [address] Performed By: #### 1 9123-9, 63152-2, 3083- ####[facility] [id number] [place] [address] [place] Chloride [Moles/Vol] 102 mmol/L Normal 97-105 [facility] Comment on above: Order Comment: Speci men Type: BLOOD SPECIMENOrdering Facility: [facility] Address: [address] [place], [place] [address] Performed By: #### 1 9123-9, 72581-6, 3083-03 ####[facility] [id number] [place] [address] [place] CO2 [Moles/Vol] 28 mmol/L Normal 22-30 [facility] Comment on above: Order Comment: Speci men Type: BLOOD SPECIMENOrdering Facility: [facility] Address: [address] [place], [place] [address] Performed By: #### 1 9123-9, 32761-1, 3083- ####[facility] [id number] [place] [address] [place] Creatinine [Mass/Vol] 1.12 mg/dL Normal 0.73-1.22 [facility] Comment on above: Order Comment: Speci men Type: BLOOD SPECIMENOrdering Facility: [facility] Address: [address] [phone] Performed By: #### 1 9123-9, 99968-0, 3084-1 ####[facility] [id number] [place] [address] [place] ESTIMATED GLOMERULAR FILTRATION RATE 77 mL/min/1.73m??? Normal >=60 [facility] Comment on above: Order Comment: Aaliyah gibson Type: BLOOD SPECIMENOrdering Facility: [facility] Address: [address] [place], [place] [phone] Result Comment: Laurita mated Glomerular Filtration Rate [...] actual GFR. Performed By: #### 1 9123-9, 42842-7, 3084-1 ####[facility] [id number] [place] [address] [place] Glucose [Mass/Vol] 114 mg/dL High 74-99 [facility] Comment on above: Order Comment: Aaliyah paige Type: BLOOD SPECIMENOrdering Facility: [facility] Address: [address] [place], [place] [phone] Result Comment: The [place] [employer] (ADA) provides guidance for cutoff [...] Standards of Medical Care in Diabetes 2016, [place] [employer]. Diabetes Care. 2016.39(Suppl 1). Performed By: #### 1 9123-9, 29004-5, 3084-1 ####[facility] [id number] [place] [address] [place] Potassium [Moles/Vol] 3.5 mmol/L Low 3.7-5.1 [facility] Comment on above: Order Comment: Speci men Type: BLOOD SPECIMENOrdering Facility: [facility] Address: [address] [place], [place] [phone] Performed By: #### 1 9123-9, 94388-3, 3084-1 ####[facility] [id number] [place] [address] [place] Protein [Mass/Vol] 6.8 g/dL Normal 6.3-8.0 [facility] Comment on above: Order Comment: Speci men Type: BLOOD SPECIMENOrdering Facility: [facility] Address: [address] [place], [place] [address] Performed By: #### 1 9123-9, 18761-2, 3084-1 ####[facility] [id number] [place] [address] [place] Sodium [Moles/Vol] 140 mmol/L Normal 136-144 [facility] Comment on above: Order Comment: Speci men Type: BLOOD SPECIMENOrdering Facility: [facility] Address: [address] [phone] Performed By: #### 1 9123-9, 07214-6, 3084-1 ####[facility] [id number] [place] [address] [place] Urea nitrogen [Mass/Vol] 20 mg/dL Normal 9-24 [facility] Comment on above: Order Comment: Speci men Type: BLOOD SPECIMENOrdering Facility: [facility] Address: [address] [place], [place] [phone] Performed By: #### 1 9123-9, 53620-1, 3084-1 ####[facility] [id number] [place] [address] [place] Albumin [Mass/Vol] 4.0 g/dL 3.9 - 4.9 g/dL [facility] ALP [Catalytic activity/Vol] 57 U/L 38 - 113 U/L [facility] ALT [Catalytic activity/Vol] 26 U/L 10 - 54 U/L [facility] Anion gap [Moles/Vol] 10 mmol/L 9 - 18 mmol/L [facility] AST [Catalytic activity/Vol] 18 U/L 14 - 40 U/L [facility] Bilirubin [Mass/Vol] 0.5 mg/dL 0.2 - 1 .3 mg/dL [facility] Calcium [Mass/Vol] 9.4 mg/dL 8.5 - 10. 2 mg/dL [facility] Chloride [Moles/Vol] 102 mmol/L 97 - 10 5 mmol/L [facility] CO2 [Moles/Vol] 28 mmol/L 22 - 30 mmol/L [facility] Creatinine [Mass/Vol] 1.12 mg/dL 0.73 - 1.22 mg/dL [facility] Estimated Glomerular Filtration Rate 77 mL/min/1.73m >=60 mL/min/1.7 3m [facility] Glucose [Mass/Vol] 114 mg/dL High 74 - 99 mg/dL [facility] Potassium [Moles/Vol] 3.5 mmol/L Low 3.7 - 5.1 mmol/L [facility] Protein [Mass/Vol] 6.8 g/dL 6.3 - 8.0 g/dL [facility] Sodium [Moles/Vol] 140 mmol/L 136 - 144 mmol/L [facility] Urea nitrogen [Mass/Vol] 20 mg/dL 9 - 24 mg/dL [facility] LD LACTATE DEHYDROon 022 LDH [Catalytic activity/Vol] 201 U/L 135 - 225 U/L [facility] LDH SerPl-cCncon 07-21-2021 LDH [Catalytic activity/Vol] 201 U/L Normal 135-225 [facility] Comment on above: Order Comment: Speci men Type: BLOOD SPECIMENOrdering Facility: [facility] Address: [address] [place] [address] Performed By: #### 2 532-0 ####[facility] [id number] [place] [address] [place] MAGNESIUM BLDon 07-21-2021 Magnesium [Mass/Vol] 2.1 mg/dL 1.7 - 2 .3 mg/dL [facility] MRI BRAIN WO/W IVCONon 07-21 MRI BRAIN WO/W IVCON Normal [facility] Magnesium SerPl-mCncon 07-21 Magnesium [Mass/Vol] 2.1 mg/dL Normal 1.7-2.3 [facility] Comment on above: Order Comment: Aaliyah gibson Type: BLOOD SPECIMENOrdering Facility: [facility] Address: [address] [place] [address] Performed By: #### 1 9123-9, 19174-3, 3084-1 ####[facility] [id number] [place] [address] [place] PHOSPHORUS INORGANICon 07-21 Phosphate [Mass/Vol] 3.9 mg/dL 2.7 - 4 .8 mg/dL [facility] PT panel Coag (PPP)on 2021 INR Coag (PPP) [Relative time] 1.0 {INR} Normal 0.9-1.3 [facility] Comment on above: Order Comment: Aaliyah gibson Type: BLOOD SPECIMENOrdering Facility: [facility] Address: [address] [place], [place] [phone] Result Comment: Constanza min K Antagonist (VKA) Therapeutic Range: INR 2 to 3 (Target INR of 2.5)Note: For patients treated with VKA drugs, such as warfarin, the [place] [employer] 2012 Guideline recommends [...] al. Chest 2012, 141:7S-47SNishnini RA, et al. [facility] 2017, 70: 252-289 Performed By: #### 3 4528-0, 65952-3 ####[facility] [id number] [place] [address] [place] PT Coag (PPP) [Time] 10.9 s Normal 9.7-13.0 [facility] Comment on above: Order Comment: Speci men Type: BLOOD SPECIMENOrdering Facility: [facility] Address: [address] [address] Performed By: #### 3 4528-0, 84757-9 ####[facility] [id number] [place] [address] [place] INR Coag (PPP) [Relative time] 1.0 {INR} 0.9 - 1.3 [facility] PT Coag (PPP) [Time] 10.9 s 9.7 - 1 3.0 sec [facility] Phosphate SerPl-mCncon 07-21 Phosphate [Mass/Vol] 3.9 mg/dL Normal 2.7-4.8 [facility] Comment on above: Order Comment: Speci men Type: BLOOD SPECIMENOrdering Facility: [facility] Address: [address] [place] [address] Performed By: #### 2 777-1 ####[facility] [id number] [place] [address] [place] T3 FREE BLDon 07-21-2021 Free T3 [Mass/Vol] 2.8 pg/mL Normal 2.3-4.1 [facility] Comment on above: Order Comment: Speci men Type: BLOOD SPECIMENOrdering Facility: [facility] Address: [address] [place] [address] Performed By: #### F T4, FREET3 ####[facility] [id number] [place] [address] [place] T4 FREE/FREE THYROXon 2021 Free T4 [Mass/Vol] 1.1 ng/dL Normal 0.9-1.7 [facility] Comment on above: Order Comment: Speci men Type: BLOOD SPECIMENOrdering Facility: [facility] Address: [address] [place] [address] Performed By: #### F T4, FREET3 ####[facility] [id number] [place] [address] [place] TSH BLDon 07-21-2021 TSH Qn 2.120 m[IU]/L 0.270 - 4.200 mIU/L [facility] TSH SerPl-aCncon 07-21-2021 TSH Qn 2.120 m[IU]/L Normal 0.270-4.20 0 [facility] Comment on above: Order Comment: Speci men Type: BLOOD SPECIMENOrdering Facility: [facility] Address: [address] [place] [address] Performed By: #### 3 016-3 ####[facility] LABIA [id number] [place] [address] [place] URIC ACID BLOODon 07-21-2021 Urate [Mass/Vol] 8.3 mg/dL High 4.0 - 8.1 mg/dL [facility] [place] Urate SerPl-mCncon Urate [Mass/Vol] 8.3 mg/dL High 4.0-8.1 [facility] Comment on above: Order Comment: Speci men Type: BLOOD SPECIMENOrdering Facility: [facility] Address: [address] [place], [place] [id number] Performed By: #### 1 9123-9, 30764-3, 3084-1 ####[facility] [id number] [place] [address] [place] aPTT PPPon 07-21-2021 aPTT Coag (PPP) [Time] 29.1 s Normal 23.0-32.[address] [facility] Comment on above: Order Comment: Speci men Type: BLOOD SPECIMENOrdering Facility: [facility] Address: [address] [place] [phone] Performed By: #### 3 4528-0, 97747-5 ####[facility] [id number] [address] [facility] CNOVSPon 07-15-2021 CNOVSP Normal [facility] MRI KIDNEY WO/W IVCONon 05-1 MRI KIDNEY WO/W IVCON Invalid Interpretation Code [facility] CNOVSPon 07-14-2021 CNOVSP Normal [facility] CNPNon 07-11-2021 CNPN Normal [facility] CNNURSEon 07-08-2021 CNNURSE Normal [facility] CNPNon 07-07-2021 CNPN Normal [facility] CNOVSPon 07-02-2021 CNOVSP Normal [facility] BRIEF OP NOTon 07-01-2021 BRIEF OP NOT Normal [facility] CT BIOPSY CHEST WALLon 07-01 CT BIOPSY CHEST WALL Normal [facility] HISTORY PHYSICALon HISTORY PHYSICAL Normal [facility] NURSING PROGon 07-01-2021 NURSING PROG Normal [facility] PT EDon 07-01-2021 PT ED Normal [facility] SURGICAL PATHOLOGYon 022 CASE REPORT Normal [facility] Comment on above: Order Comment: Speci men Type: TISSUE SPECIMENOrdering Facility: [facility] Address: [address] [place] [phone] Result Comment: Surg ical Pathology Report Case: [id number] Provider: Anne-Marie Chaparro MD Collected: 07/01/2021 08:31 AMOrdering Location: [place] [address] Received: 07/01/2021 01:44 PMPathologist: LAVINIA Hatchpecimen: SOFT TISSUE MASS BIOPSY, right chest wall mass - 4 passes, 4 cores Performed By: #### S ####[facility] LABCLIA [id number] [address] CLINICAL HISTORY right renal mass wit h right chest wall mass Normal [facility] Comment on above: Order Comment: Speci men Type: TISSUE SPECIMENOrdering Facility: [facility] Address: [address] [place] [address] Performed By: #### S ####[facility] LABCLIA [id number] [address] DIAGNOSIS COMMENT Normal [facility] Comment on above: Order Comment: Speci men Type: TISSUE SPECIMENOrdering Facility: [facility] Address: [address] [place] [address] Result Comment: Tumo r cells are strongly and diffusely positive for PAX-8, CAM 5.2 and CA9. The overall morphology and immunoprofile support the above diagnosis.Laboratory Developed Test (LDT) Disclaimer:Performance characteristics of immunohistochemical, immunofluorescent and chromogenic in-situ hybridization tests have been determined by the performing laboratory within [facility]???s [facility] [place] ([facility], [facility], [facility] or [facility]) in a manner consistent with CLIA requirements. One or more of these tests have not been cleared or approved by the FDA. [facility] is regulated under CLIA as qualified to perform high-complexity testing. These tests are used for clinical purposes. They should not be regarded as investigational or for research. Positive and negative controls stain appropriately. Performed By: #### S ####[facility] LABCLIA [id number] [address] FINAL DIAGNOSIS Normal [facility] Comment on above: Order Comment: Speci men Type: TISSUE SPECIMENOrdering Facility: [facility] Address: [address] [place] [address] Result Comment: A. S oft tissue, right chest wall mass, core needle biopsy:- Metastatic renal cell carcinoma, clear cell type. See comment.CHRISTIANO/TERA/hi 07/04/2021 Performed By: #### S ####[facility] LABCLIA [id number] [address] [place] FINAL PERFORMING LAB Normal [facility] Comment on above: Order Comment: Speci men Type: TISSUE SPECIMENOrdering Facility: [facility] Address: [address] [place] [address] Result Comment: Diag nostic interpretation performed at [facility], [address] [place] [address] CLIA# [id number] Director: Russ Madera M.D. Performed By: #### S ####[facility] LABCLIA [id number] [address] STATES [place] GROSS DESCRIPTION Normal [facility] Comment on above: Order Comment: Speci men Type: TISSUE SPECIMENOrdering Facility: [facility] Address: [address] [place] [address] Result Comment: A. S OFT TISSUE MASS BIOPSY.Received in formalin are multiple segments of cylindrical tissue 1.0 x 0.2 x 0.1 cm, short-red and of a friable consistency. Totally submitted in one cassette.HMM July 01, 2021 5:56 PMGross examination performed at [facility], [address] [place] [address] Performed By: #### S ####[facility] LABCLIA [id number] [place] [address] [place] NM BONE WHOLE BODYon 022 NM BONE WHOLE BODY Normal [facility] PT panel Coag (PPP)on 2021 INR Coag (PPP) [Relative time] 1.0 {INR} Normal 0.9-1.3 [facility] Comment on above: Order Comment: Aaliyah gibson Type: BLOOD SPECIMENOrdering Facility: [facility] Address: [address] [phone] Result Comment: Constanza min K Antagonist (VKA) Therapeutic Range: INR 2 to 3 (Target INR of 2.5)Note: For patients treated with VKA drugs, such as warfarin, the [employer] 2012 Guideline recommends [...] al. Chest 2012, 141:7S-47SNishimura RA, et al. [facility] 2017, 70: 252-289 Performed By: #### 3 4528-0 ####[facility]UN[facility] [id number] [place] [address] [place] PT Coag (PPP) [Time] 10.5 s Normal 9.7-13.0 [facility] Comment on above: Order Comment: Aaliyah gibson Type: BLOOD SPECIMENOrdering Facility: [facility] Address: [address] [place] [address] Performed By: #### 3 4528-0 ####[facility] LABUNIV[facility] [id number] [place] [address] [place] [address] ABD/PEL W IVCONon 022 CT ABD/PEL W IVCON Normal [facility] NURSING PROGon 06-25-2021 NURSING PROG Normal [facility] CNOVon 06-23-2021 CNOV Normal [facility] CNPNon 06-23-2021 CNPN Normal [facility] CNPTOUTREACHon 06-23-2021 CNPTOUTREACH Normal [facility] URINALYSIS, REFLEX MICROSCOP ICon 06-23-2021 Bilirubin Ql (U) Negative Negative [facility] Clarity (Unsp spec) Clear Clear [facility] Color (U) Yellow Yellow [facility] Glucose Test strip (U) [Mass/Vol] Negative Negative [facility] Hemoglobin Ql (U) Negative Negative [facility] Ketones Ql (U) Negative Negative [facility] Leukocyte esterase Test strip Ql (U) Negative Negative [facility] Nitrite Ql (U) Negative Negative [facility] pH (U) 6.5 [pH] 5.0 - 8.0 [facility] Protein (U) [Mass/Vol] Trace Abnormal Negative [facility] Specific gravity (U) [Rel density] 1.013 1.005 - 1.030 [facility] Urobilinogen Ql (U) Negative Negative [facility] Bilirubin Ql (U) Negative Normal Negative [facility] Comment on above: Order Comment: Speci men Type: URINE SPECIMENOrdering Facility: [facility] Address: [address] [place] [address] Performed By: #### L [id number] ####[facility] Q7CLIA [id number] [address] [place] Clarity (Unsp spec) Clear Normal Clear [facility] Comment on above: Order Comment: Speci men Type: URINE SPECIMENOrdering Facility: [facility] Address: [address] [place] [address] Performed By: #### L [id number] ####[facility] Q7CLIA [id number] [address] [place] Color (U) Yellow Normal Yellow [facility] Comment on above: Order Comment: Speci men Type: URINE SPECIMENOrdering Facility: [facility] Address: [address] [place] [address] Performed By: #### L [id number] ####[facility] Q7CLIA [id number] [address] OF [place] Glucose Test strip (U) [Mass/Vol] Negative Normal Negative [facility] Comment on above: Order Comment: Speci men Type: URINE SPECIMENOrdering Facility: [facility] Address: [address] [place], [place] [address] Performed By: #### L [id number] ####[facility] Q7CLIA [id number] [address] [place] Hemoglobin Ql (U) Negative Normal Negative [facility] Comment on above: Order Comment: Speci men Type: URINE SPECIMENOrdering Facility: [facility] Address: [address] [place], [place] [address] Performed By: #### L [id number] ####[facility] Q7CLIA [id number] [address] [place] Ketones Ql (U) Negative Normal Negative [facility] Comment on above: Order Comment: Speci men Type: URINE SPECIMENOrdering Facility: [facility] Address: [address] [place] [address] Performed By: #### L [id number] ####[facility] Q7CLIA [id number] [address] Leukocyte esterase Test strip Ql (U) Negative Normal Negative [facility] Comment on above: Order Comment: Speci men Type: URINE SPECIMENOrdering Facility: [facility] Address: [address] [place] [address] Performed By: #### L [id number] ####[facility] Q7CLIA [id number] [place] [address] [place] Nitrite Ql (U) Negative Normal Negative [facility] Comment on above: Order Comment: Speci men Type: URINE SPECIMENOrdering Facility: [facility] Address: [address] [place], [place] [phone] Performed By: #### L [id number] ####[facility] Q7CLIA [id number] [address] [place] pH (U) 6.5 [pH] Normal 5.0-8.0 [facility] Comment on above: Order Comment: Speci men Type: URINE SPECIMENOrdering Facility: [facility] Address: [address] [place] [address] Performed By: #### L [id number] ####[facility] Q7CLIA [id number] [place] [address] [place] Protein (U) [Mass/Vol] Trace Abnormal Negative [facility] Comment on above: Order Comment: Speci men Type: URINE SPECIMENOrdering Facility: [facility] Address: [address] [place] [address] Performed By: #### L [id number] ####[facility] Q7CLIA [id number] [address] Specific gravity (U) [Rel density] 1.013 Normal 1.005-1.03 0 [facility] Comment on above: Order Comment: Speci men Type: URINE SPECIMENOrdering Facility: [facility] Address: [address] [place] [address] Performed By: #### L [id number] ####[facility] Q7CLIA [id number] [address] Urobilinogen Ql (U) Negative Normal Negative [facility] Comment on above: Order Comment: Speci men Type: URINE SPECIMENOrdering Facility: [facility] Address: [address] [place] [address] Performed By: #### L [id number] ####[facility] Q7CLIA [id number] [place] [address] [place] CBC W Auto Differential pane l (Bld)on 06-20-2021 Basophils (Bld) [#/Vol] 0.03 10*3/uL Normal <0.11 [facility] Comment on above: Order Comment: Speci men Type: BLOOD SPECIMENOrdering Facility: [facility] Address: [address] [place], [place] [address] Performed By: #### 5 7021-8 ####[facility] LABCLIA [id number] [facility] [place] [address] [place] Basophils/100 WBC (Bld) 0.4 % Normal [facility] Comment on above: Order Comment: Speci men Type: BLOOD SPECIMENOrdering Facility: [facility] Address: [address] [place], [place] [address] Performed By: #### 5 7021-8 ####[facility] LABCLIA [id number] [place] [address] [place] Differential cell count method Nom (Bld) Auto Normal [facility] Comment on above: Order Comment: Speci men Type: BLOOD SPECIMENOrdering Facility: [facility] Address: [address] [place], [place] [address] Performed By: #### 5 7021-8 ####[facility] LABCLIA [id number] [place] [address] [place] Eosinophils (Bld) [#/Vol] 10*3/uL Normal <0.46 [facility] Comment on above: Order Comment: Speci men Type: BLOOD SPECIMENOrdering Facility: [facility] Address: [address] [place], [place] [address] Performed By: #### 5 7021-8 ####[facility] LABCLIA [id number] [place] [address] [place] Eosinophils/100 WBC (Bld) 0.3 % Normal [facility] Comment on above: Order Comment: Speci men Type: BLOOD SPECIMENOrdering Facility: [facility] Address: [address] [place], [place] [address] Performed By: #### 5 7021-8 ####[facility] LABIA [id number] [place] [address] [place] Erythrocyte distribution width (RBC) [Ratio] 14.8 % Normal 11.5-15.0 [facility] Comment on above: Order Comment: Speci men Type: BLOOD SPECIMENOrdering Facility: [facility] Address: [address] [place], [place] [address] Performed By: #### 5 7021-8 ####[facility] LABIA [id number] [place] [address] [place] Hematocrit (Bld) [Volume fraction] 48.7 % Normal 39.0-51.0 [facility] Comment on above: Order Comment: Speci men Type: BLOOD SPECIMENOrdering Facility: [facility] Address: [address] [place], [place] [address] Performed By: #### 5 7021-8 ####[facility] [id number] [place] [address] [place] Hemoglobin (Bld) [Mass/Vol] 15.6 g/dL Normal 13.0-17.0 [facility] Comment on above: Order Comment: Speci men Type: BLOOD SPECIMENOrdering Facility: [facility] Address: [address] [place], [place] [address] Performed By: #### 5 7021-8 ####[facility] LABIA [id number] [address] [place] IMMATURE GRAN % 0.3 % Normal [facility] Comment on above: Order Comment: Speci men Type: BLOOD SPECIMENOrdering Facility: [facility] Address: [address] [place], [place] [address] Performed By: #### 5 7021-8 ####[facility] LABIA [id number] [place] [address] [place] IMMATURE GRAN ABS <0.03 Normal <0.10 [facility] Comment on above: Order Comment: Speci men Type: BLOOD SPECIMENOrdering Facility: [facility] Address: [address] [place] [address] Performed By: #### 5 7021-8 ####[facility] LABCLIA [id number] [place] [address] [place] Lymphocytes (Bld) [#/Vol] 1.78 10*3/uL Normal 1.00-4.00 [facility] Comment on above: Order Comment: Speci men Type: BLOOD SPECIMENOrdering Facility: [facility] Address: [address] [place] [address] Performed By: #### 5 7021-8 ####[facility] LABCLIA [id number] [address] STATES OF [facility] Lymphocytes/100 WBC (Bld) 26.6 % Normal [facility] Comment on above: Order Comment: Speci men Type: BLOOD SPECIMENOrdering Facility: [facility] Address: [address] [place] [address] Performed By: #### 5 7021-8 ####[facility] LABCLIA [id number] [address] [place] MCH (RBC) [Entitic mass] 29.4 pg Normal 26.0-34.0 [facility] Comment on above: Order Comment: Speci men Type: BLOOD SPECIMENOrdering Facility: [facility] Address: [address] [place], [place] [address] Performed By: #### 5 7021-8 ####[facility] LABCLIA [id number] [place] [address] [place] MCHC (RBC) [Mass/Vol] 32.0 g/dL Normal 30.5-36.0 [facility] Comment on above: Order Comment: Speci men Type: BLOOD SPECIMENOrdering Facility: [facility] Address: [address] [place], [place] [address] Performed By: #### 5 7021-8 ####[facility] LABCLIA [id number] [address] MCV (RBC) [Entitic vol] 91.9 fL Normal 80.0-100.0 C [facility] Comment on above: Order Comment: Speci men Type: BLOOD SPECIMENOrdering Facility: [facility] Address: [address] [place], [place] [address] Performed By: #### 5 7021-8 ####[facility] LABIA [id number] [place] [address] [place] Monocytes (Bld) [#/Vol] 0.51 10*3/uL Normal <0.87 [facility] Comment on above: Order Comment: Speci men Type: BLOOD SPECIMENOrdering Facility: [facility] Address: [address] [place] [address] Performed By: #### 5 7021-8 ####[facility] LABCLIA [id number] [address] [place] Monocytes/100 WBC (Bld) 7.6 % Normal C [facility] Comment on above: Order Comment: Speci men Type: BLOOD SPECIMENOrdering Facility: [facility] Address: [address] [place], [place] [address] Performed By: #### 5 7021-8 ####[facility] LABCLIA [id number] [place] [address] [place] Neutrophils (Bld) [#/Vol] 4.34 10*3/uL Normal 1.45-7.50 [facility] Comment on above: Order Comment: Speci men Type: BLOOD SPECIMENOrdering Facility: [facility] Address: [address] [place], [place] [address] Performed By: #### 5 7021-8 ####[facility] LABCLIA [id number] [place] [address] [place] Neutrophils/100 WBC (Bld) 64.8 % Normal [facility] Comment on above: Order Comment: Speci men Type: BLOOD SPECIMENOrdering Facility: [facility] Address: [address] [place], [place] [address] Performed By: #### 5 7021-8 ####[facility] LABCLIA [id number] [place] [address] [place] Nucleated RBC (Bld) [#/Vol] 10*3/uL Normal <0.01 [facility] Comment on above: Order Comment: Speci men Type: BLOOD SPECIMENOrdering Facility: [facility] Address: [address] [place], [place] [address] Performed By: #### 5 7021-8 ####[facility] LABIA [id number] [place] [address] [place] Nucleated RBC/100 WBC (Bld) [Ratio] 0.0 /100 WBC Normal [facility] Comment on above: Order Comment: Speci men Type: BLOOD SPECIMENOrdering Facility: [facility] Address: [address] [place], [place] [address] Performed By: #### 5 7021-8 ####[facility] LABIA [id number] [place] [address] [place] Platelet mean volume (Bld) [Entitic vol] 11.0 fL Normal 9.0-12.7 [facility] Comment on above: Order Comment: Speci men Type: BLOOD SPECIMENOrdering Facility: [facility] Address: [address] [place], [place] [address] Performed By: #### 5 7021-8 ####[facility] LABCLIA [id number] [place] [address] [place] Platelets (Bld) [#/Vol] 268 10*3/uL Normal 150-400 [facility] Comment on above: Order Comment: Speci men Type: BLOOD SPECIMENOrdering Facility: [facility] Address: [address] [place] [address] Performed By: #### 5 7021-8 ####[facility] LABCLIA [id number] [place] [address] [place] RBC (Bld) [#/Vol] 5.30 10*6/uL Normal 4.20-6.00 [facility] Comment on above: Order Comment: Speci men Type: BLOOD SPECIMENOrdering Facility: [facility] Address: [address] [place] [address] Performed By: #### 5 7021-8 ####[facility] LABCLIA [id number] [place] [address] [place] WBC (Bld) [#/Vol] 6.70 10*3/uL Normal 3.70-11.00 [facility] Comment on above: Order Comment: Speci men Type: BLOOD SPECIMENOrdering Facility: [facility] Address: [address] [place], [place] [address] Performed By: #### 5 7021-8 ####[facility] LABCLIA [id number] [place] [address] [place] CNOVon 06-20-2021 CNOV Normal [facility] Comprehensive metabolic 2000 panelon 06-20-2021 Albumin [Mass/Vol] 4.2 g/dL Normal 3.9-4.9 [facility] Comment on above: Order Comment: Speci men Type: BLOOD SPECIMENOrdering Facility: [facility] Address: [address] [place] [address] Performed By: #### 2 4323-8 ####[facility] LABCLIA [id number] [place] [address] [place] ALP [Catalytic activity/Vol] 52 U/L Normal 38-113 [facility] Comment on above: Order Comment: Speci men Type: BLOOD SPECIMENOrdering Facility: [facility] Address: [address] [place], [place] [address] Performed By: #### 2 4323-8 ####[facility] LABCLIA [id number] [address] [place] ALT [Catalytic activity/Vol] 17 U/L Normal 10-54 [facility] Comment on above: Order Comment: Speci men Type: BLOOD SPECIMENOrdering Facility: [facility] Address: [address] [place], [place] [address] Performed By: #### 2 4323-8 ####[facility] LABCLIA [id number] [place] [address] [place] Anion gap [Moles/Vol] 12 mmol/L Normal 9-18 [facility] Comment on above: Order Comment: Speci men Type: BLOOD SPECIMENOrdering Facility: [facility] Address: [address] [place], [place] [address] Performed By: #### 2 4323-8 ####[facility] LABCLIA [id number] [address] STATES OF [facility] AST [Catalytic activity/Vol] 18 U/L Normal 14-40 [facility] Comment on above: Order Comment: Speci men Type: BLOOD SPECIMENOrdering Facility: [facility] Address: [address] [place] [address] Performed By: #### 2 4323-8 ####[facility] LABCLIA [id number] [place] [address] [place] Bilirubin [Mass/Vol] 0.5 mg/dL Normal 0.2-1.3 [facility] Comment on above: Order Comment: Speci men Type: BLOOD SPECIMENOrdering Facility: [facility] Address: [address] [place] [address] Performed By: #### 2 4323-8 ####[facility] LABCLIA [id number] [address] [address] [place] Calcium [Mass/Vol] 9.8 mg/dL Normal 8.5-10.2 [facility] Comment on above: Order Comment: Speci men Type: BLOOD SPECIMENOrdering Facility: [facility] Address: [address] [place], [place] [address] Performed By: #### 2 4323-8 ####[facility] LABCLIA [id number] [place] [address] [place] Chloride [Moles/Vol] 101 mmol/L Normal 97-105 [facility] Comment on above: Order Comment: Speci men Type: BLOOD SPECIMENOrdering Facility: [facility] Address: [address] [place], [place] [address] Performed By: #### 2 4323-8 ####[facility] LABCLIA [id number] [place] [address] [place] CO2 [Moles/Vol] 28 mmol/L Normal 22-30 [facility] Comment on above: Order Comment: Speci men Type: BLOOD SPECIMENOrdering Facility: [facility] Address: [address] [place] [address] Performed By: #### 2 4323-8 ####[facility] [facility] LABCLIA [id number] [place] [address] [place] Creatinine [Mass/Vol] 1.12 mg/dL Normal 0.73-1.22 [facility] Comment on above: Order Comment: Speci men Type: BLOOD SPECIMENOrdering Facility: [facility] Address: [address] [place] [address] Performed By: #### 2 4323-8 ####[facility] LABCLIA [id number] [place] [id number] [place] ESTIMATED GLOMERULAR FILTRATION RATE 77 mL/min/1.73m??? Normal >=60 [facility] Comment on above: Order Comment: Aaliyah gibson Type: BLOOD SPECIMENOrdering Facility: [facility] Address: [address] [id number] Result Comment: Laurita mated Glomerular Filtration Rate [...] actual GFR. Performed By: #### 2 4323-8 ####[facility] LABIA [id number] [place] [address] [place] Glucose [Mass/Vol] 87 mg/dL Normal 74-99 [facility] Comment on above: Order Comment: Aaliyah gibson Type: BLOOD SPECIMENOrdering Facility: [facility] Address: [address] [place] [address] Result Comment: The [place] Diabetes Association (ADA) provides guidance for cutoff [...] Standards of Medical Care in Diabetes 2016, [place] Diabetes Association. Diabetes Care. 2016.39(Suppl 1). Performed By: #### 2 4323-8 ####[facility] [id number] [place] [address] [place] Potassium [Moles/Vol] 3.8 mmol/L Normal 3.7-5.1 [facility] Comment on above: Order Comment: Aaliyah gibson Type: BLOOD SPECIMENOrdering Facility: [facility] Address: [address] [place] [address] Performed By: #### 2 4323-8 ####[facility] LABCLIA [id number] [place] [address] [place] Protein [Mass/Vol] 7.3 g/dL Normal 6.3-8.0 [facility] Comment on above: Order Comment: Speci men Type: BLOOD SPECIMENOrdering Facility: [facility] Address: [address] [place] [address] Performed By: #### 2 4323-8 ####[facility] LABIA [id number] [place] [address] [place] Sodium [Moles/Vol] 141 mmol/L Normal 136-144 [facility] Comment on above: Order Comment: Speci men Type: BLOOD SPECIMENOrdering Facility: [facility] Address: [address] [place] [address] Performed By: #### 2 4323-8 ####[facility] LABIA [id number] [place] [address] [place] Urea nitrogen [Mass/Vol] 12 mg/dL Normal 9-24 [facility] Comment on above: Order Comment: Speci men Type: BLOOD SPECIMENOrdering Facility: [facility] Address: [address] [place] [address] Performed By: #### 2 4323-8 ####[facility] LABIA [id number] [place] [address] [place] ALC ETHANOLon 06-19-2021 ALC ETHANOL < 3.0 Normal <10.0 [facility] Comment on above: Order Comment: CONSE RVATION Result Comment: UNCO NFIRMED Toxicology results. For MEDICAL purposes only.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 Yefri Yanez PATIENT LOCATION: [facility] READINESS TO LEARN COGNITIVE ABILITY: Alert [...] None Electronically Signed By: Marysol Ward RN [facility] SURGICAL PATHOLOGYon 020 SURGICAL PATHOLOGY Specimen originated from [facility] Specimen #: [id number] Submitting Physician: TOMY YOO MD FINAL DIAGNOSIS [...] in one cassette. Gross examination performed at [facility], [address] [place] [address] 11/20/2019 3:34:29 PM Date of Report: 11/21/2019 Date of Procedure: 11/20/2019 Date of Receipt: 11/20/2019 Submitted by: TOMY YOO MD Location: [facility] Diagnostic interpretation performed at [facility], [facility] [place][note 2] [place] [address]. CLIA Number: [id number] Normal [facility] NURSING PROGon 11-17-2019 NURSING PROG HNO ID: [id number] Author: Haylee (Rn) JOHN Longo Service: Gastroenterology Author Type: Registered Nurse Type: Nursing Progress Note Filed: 11/17/2019 2:28 PM Note Text: [facility] ENDOSCOPY PRE PROCEDURE CALL RED is [...] Pt Surgery Script: Ronnelllo. 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 Do not wear makeup, lotion, or finger albanian. yes Patient instructed: Do not eat or [...] given Any barriers to Patient learning (confusion? 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 Type of instruction given: Verbal by telephone contact. [facility] Telephone (SPDIG) ----- YEFRI YANEZ ([id number]) 1965 M Date Time Provider Department 11/09/19 [facility] your [facility] today, we [...] Encounter Status:Closed by MADYSON SOTO on 11/09/19 [facility] HOSPon 11-07-2019 HOSP Patient:Fermin Yanez MRN: [...] questions develop. Instructions s Madyson Soto RN [facility] No Panel Information SARS-CoV-2 & FLU Antigen (Rapid) [facility] Work Phone: Vital Signs Date Time Vital Sign Value Performing Clinician Cristopher meza 10-02-2024 14:41-0400 Body height 180.[address] Daksha Turner MD Work Phone: [facility] 10-02-2024 14:41-0400 Body mass index (BMI) [Ratio] 36.1 kg/m2 Dr. Daksha Turner MD Work Phone: 6(829)507-968858 [place] [address] 10-02-2024 14:41-0400 Body weight 117.[address] Daksha Turner MD Work Phone: 3(346)244-180417 [place] [address] 10-02-2024 14:41-0400 Diastolic blood pressure 50 mm[Hg] Dr. Daksha Turner MD Work Phone: 8(219)067-904717 [place] [address] 10-02-2024 14:41-0400 Heart rate 76 /min Dr. Daksha Turner MD Work Phone: 3(616)609-512917 [place] [address] 10-02-2024 14:41-0400 Respiratory rate 16 /min Dr. Daksha Turner MD Work Phone: 2(415)736-848017 [place] [address] 10-02-2024 14:41-0400 SaO2% (BldA) [Mass fraction] 99 % Dr. Daksha Turner MD Work Phone: 2(391)056-331817 [place] [address] 10-02-2024 14:41-0400 Systolic blood pressure 80 mm[Hg] Dr. Daksha Turner MD Work Phone: 5(550)996-880217 [place] [address] 08-14-2024 15:00-0400 Body weight 118.[address] Daksha Turner MD Work Phone: 2(794)856-454058 [place] [address] 08-14-2024 13:06-0400 Body height 180.[address] Daksha Turner MD Work Phone: 0(092)739-511717 [place] [address] 08-14-2024 06:47-0400 Body mass index (BMI) [Ratio] 35.9 kg/m2 Dr. Daksha Turner MD Work Phone: 7(103)645-354917 [place] [address] 08-14-2024 06:47-0400 Body weight 117.[address] Daksha Turner MD Work Phone: 2(887)942-080817 [place] [address] 08-14-2024 06:47-0400 Diastolic blood pressure 76 mm[Hg] Dr. Daksha Turner MD Work Phone: [facility] 08-14-2024 06:47-0400 Heart rate 84 /min Dr. Daksha Turner MD Work Phone: [facility] 08-14-2024 06:47-0400 Respiratory rate 18 /min Dr. Daksha Turner MD Work Phone: [facility] 08-14-2024 06:47-0400 SaO2% (BldA) [Mass fraction] 97 % Dr. Daksha Turner MD Work Phone: 7(440)018-257958 [place] [address] 08-14-2024 06:47-0400 Systolic blood pressure 127 mm[Hg] Dr. Daksha Turner MD Work Phone: [facility] 06-20-2024 13:40-0400 Body height 180.[address] Daksha Turner MD Work Phone: 2(567)477-513858 [place] [address] 06-20-2024 13:38-0400 Body mass index (BMI) [Ratio] 36.8 kg/m2 Dr. Daksha Turner MD Work Phone: [facility] 06-20-2024 13:38-0400 Body temperature 98.1 [degF] Dr. Daksha Turner MD Work Phone: [facility] 06-20-2024 13:38-0400 Body weight 119.[address] Daksha Turner MD Work Phone: [facility] 06-20-2024 13:38-0400 Diastolic blood pressure 79 mm[Hg] Dr. Daksha Truner MD Work Phone: [facility] 06-20-2024 13:38-0400 Heart rate 99 /min Dr. Daksha Turner MD Work Phone: [facility] 06-20-2024 13:38-0400 Respiratory rate 18 /min Dr. Daksha Turner MD Work Phone: 4(591)686-003858 [place] [address] 06-20-2024 13:38-0400 SaO2% (BldA) [Mass fraction] 95 % Dr. Daksha Turner MD Work Phone: 5(524)224-900058 [place] [address] 06-20-2024 13:38-0400 Systolic blood pressure 106 mm[Hg] Dr. Daksha Turner MD Work Phone: 8(206)181-760717 [place] [address] 06-05-2024 13:45-0400 Body height 180.[address] Daksha Turner MD Work Phone: 0(037)457-674317 [place] [address] 06-05-2024 13:45-0400 Body weight 122.[address] Daksha Turner MD Work Phone: 7(804)729-575917 [place] [address] 04-12-2023 15:35-0500 Body height 180.[address] Jose Ramon Turner Work Phone: 4(517)492-424317 [place] [address] 04-12-2023 15:35-0500 Body mass index (BMI) [Ratio] 38.5 kg/m2 Dr. Jose Ramon Turner Work Phone: 8(449)321-152717 [place] [address] 04-12-2023 15:35-0500 Body temperature 98.2 [degF] Dr. Jose Ramon Turner Work Phone: 4(382)377-744317 [place] [address] 04-12-2023 15:35-0500 Body weight 125.[address] Jose Ramon Turner Work Phone: 9(362)946-813317 [place] [address] 04-12-2023 15:35-0500 Diastolic blood pressure 66 mm[Hg] Dr. Jose Ramon Turner Work Phone: 3(305)673-384517 [place] [address] 04-12-2023 15:35-0500 Heart rate 80 /min Dr. Jose Ramon Turner Work Phone: 5(703)005-558017 [place] [address] 04-12-2023 15:35-0500 Respiratory rate 18 /min Dr. Jose Ramon Turner Work Phone: 7(232)388-301517 [place] [address] 04-12-2023 15:35-0500 SaO2% (BldA) [Mass fraction] 95 % Dr. Jose Ramon Turner Work Phone: 8(582)420-334658 [place] [address] 04-12-2023 15:35-0500 Systolic blood pressure 104 mm[Hg] Dr. Jose Ramon Turner Work Phone: 0(281)777-130417 [place] [address] 12-17-2022 09:20-0400 Inhaled oxygen flow rate 2 L/min Dr. Jose Ramon Turner Work Phone: 3(128)449-366217 [place] [address] 12-17-2022 09:18-0400 SaO2% (BldA) [Mass fraction] 97 % Dr. Jose Ramon Turner Work Phone: 1(611)553-561717 [place] [address] 12-17-2022 09:00-0400 Body temperature 98 [degF] Dr. Jose Ramon Turner Work Phone: 4(749)784-796917 [place] [address] 12-17-2022 09:00-0400 Diastolic blood pressure 87 mm[Hg] Dr. Jose Ramon Turner Work Phone: 4(057)623-751917 [place] [address] 12-17-2022 09:00-0400 Heart rate 77 /min Dr. Jose Ramon Turner Work Phone: 8(974)602-664417 [place] [address] 12-17-2022 09:00-0400 Respiratory rate 16 /min Dr. Jose Ramon Turner Work Phone: 3(513)744-173317 [place] [address] 12-17-2022 09:00-0400 Systolic blood pressure 125 mm[Hg] Dr. Jose Ramon Turner Work Phone: 6(177)265-556817 [place] [address] 12-17-2022 04:00-0400 Body mass index (BMI) [Ratio] 36.1 kg/m2 Dr. Jose Ramon Turner Work Phone: 5(848)373-699117 [place] [address] 12-17-2022 04:00-0400 Body weight 117.[address] Jose Ramon Turner Work Phone: 8(885)887-819717 [place] [address] 12-16-2022 15:19-0400 Body height 180.[address] Jose Ramon Turner Work Phone: 1(672)433-812217 [place] [address] 09-29-2022 13:43-0400 Body mass index (BMI) [Ratio] 9.3 kg/m2 Dr. Jose Ramon Turner Work Phone: [facility] 09-29-2022 13:43-0400 Body weight 30.[address] Jose Ramon Turner Work Phone: [facility] 09-29-2022 13:43-0400 Diastolic blood pressure 81 mm[Hg] Dr. Jose Ramon Turner Work Phone: [facility] 09-29-2022 13:43-0400 Heart rate 84 /min Dr. Jose Ramon Turner Work Phone: [facility] 09-29-2022 13:43-0400 Respiratory rate 20 /min Dr. Jose Ramon Turner Work Phone: 5(689)590-798063 [address] 09-29-2022 13:43-0400 SaO2% (BldA) [Mass fraction] 97 % Dr. Jose Ramon Turner Work Phone: 8(309)098-299258 [place] [address] 09-29-2022 13:43-0400 Systolic blood pressure 110 mm[Hg] Dr. Jose Ramon Turner Work Phone: 7(293)602-981063 [address] 09-03-2022 13:24-0400 Body height 180.[address] Jose Ramon Turner Work Phone: 9(397)465-382658 [place] [address] 09-03-2022 13:24-0400 Body mass index (BMI) [Ratio] 37.8 kg/m2 Dr. Jose Ramon Turner Work Phone: 9(327)382-695758 [place] [address] 09-03-2022 13:24-0400 Body temperature 97.2 [degF] Dr. Jose Ramon Turner Work Phone: 5(034)673-720758 [place] [address] 09-03-2022 13:24-0400 Body weight 122.[address] Jose Ramon Turner Work Phone: [facility] 09-03-2022 13:24-0400 Diastolic blood pressure 89 mm[Hg] Dr. Jose Ramon Turner Work Phone: [facility] 09-03-2022 13:24-0400 Heart rate 72 /min Dr. Jose Ramon Turner Work Phone: [facility] 09-03-2022 13:24-0400 Respiratory rate 16 /min Dr. Jose Ramon Turner Work Phone: [facility] 09-03-2022 13:24-0400 SaO2% (BldA) [Mass fraction] 97 % Dr. Jose Ramon Turner Work Phone: [facility] 09-03-2022 13:24-0400 Systolic blood pressure 132 mm[Hg] Dr. Jose Ramon Turner Work Phone: [facility] 06-29-2022 12:20-0400 Body temperature 97.5 [degF] Dr. Jose Ramon Turner Work Phone: 9(661)079-846358 [place] [address] 06-29-2022 12:20-0400 Diastolic blood pressure 92 mm[Hg] Dr. Jose Ramon Turner Work Phone: [facility] 06-29-2022 12:20-0400 Heart rate 68 /min Dr. Jose Ramon Turner Work Phone: 3(030)642-720658 [place] [address] 06-29-2022 12:20-0400 Respiratory rate 18 /min Dr. Jose Ramon Turner Work Phone: [facility] 06-29-2022 12:20-0400 SaO2% (BldA) [Mass fraction] 93 % Dr. Jose Ramon Turner Work Phone: [facility] 06-29-2022 12:20-0400 Systolic blood pressure 126 mm[Hg] Dr. Jose Ramon Turner Work Phone: 1(372)255-261863 [address] 06-29-2022 09:28-0400 Inhaled oxygen flow rate 0 L/min Dr. Jose Ramon Turner Work Phone: [facility] 06-29-2022 04:35-0400 Body mass index (BMI) [Ratio] 38.2 kg/m2 Dr. Jose Ramon Turner Work Phone: [facility] 06-29-2022 04:35-0400 Body weight 124.[address] Jose Ramon Turner Work Phone: [facility] 06-28-2022 11:54-0400 Body height 180.[address] Jose Ramon Turner Work Phone: [facility] 06-28-2022 00:14-0400 Body temperature 98.7 [degF] Dr. Jose Ramon Turner Work Phone: [facility] 06-28-2022 00:14-0400 Diastolic blood pressure 89 mm[Hg] Dr. Jose Ramon Turner Work Phone: [facility] 06-28-2022 00:14-0400 Heart rate 98 /min Dr. Jose Ramon Turner Work Phone: [facility] 06-28-2022 00:14-0400 Respiratory rate 24 /min Dr. Jose Ramon Turner Work Phone: [facility] 06-28-2022 00:14-0400 SaO2% (BldA) [Mass fraction] 97 % Dr. Jose Ramon Turner Work Phone: [facility] 06-28-2022 00:14-0400 Systolic blood pressure 139 mm[Hg] Dr. Jose Ramon Turner Work Phone: [facility] 06-27-2022 23:04-0400 Body height 180.[address] Jose Ramon Turner Work Phone: [facility] 06-27-2022 23:04-0400 Body mass index (BMI) [Ratio] 38.8 kg/m2 Dr. Jose Ramon Turner Work Phone: [facility] 06-27-2022 23:04-0400 Body weight 126.[address] Jose Ramon Turner Work Phone: 9(570)493-068263 [address] 05-27-2022 12:50-0400 Body mass index (BMI) [Ratio] 37.8 kg/m2 Dr. Jose Ramon Turner Work Phone: [facility] 05-27-2022 12:50-0400 Body temperature 98.6 [degF] Dr. Jose Ramon Turner Work Phone: [facility] 05-27-2022 12:50-0400 Body weight 123.[address] Jose Ramon Turner Work Phone: [facility] 05-27-2022 12:50-0400 Diastolic blood pressure 83 mm[Hg] Dr. Jose Ramon Turner Work Phone: [facility] 05-27-2022 12:50-0400 Heart rate 54 /min Dr. Jose Ramon Turner Work Phone: [facility] 05-27-2022 12:50-0400 Respiratory rate 17 /min Dr. Jose Ramon Turner Work Phone: [facility] 05-27-2022 12:50-0400 Systolic blood pressure 117 mm[Hg] Dr. Jose Ramon Turner Work Phone: [facility] 05-27-2022 10:46-0400 Body weight 122.[address] Jose Ramon Turner Work Phone: [facility] 05-27-2022 10:46-0400 Diastolic blood pressure 83 mm[Hg] Dr. Jose Ramon Turner Work Phone: [facility] 05-27-2022 10:46-0400 Heart rate 77 /min Dr. Jose Ramon Turner Work Phone: [facility] 05-27-2022 10:46-0400 Respiratory rate 24 /min Dr. Jose Ramon Turner Work Phone: [facility] 05-27-2022 10:46-0400 Systolic blood pressure 117 mm[Hg] Dr. Jose Ramon Turner Work Phone: [facility] 05-20-2022 08:50-0400 Body temperature 97.6 [degF] Dr. Jose Ramon Turner Work Phone: [facility] 05-20-2022 08:50-0400 Diastolic blood pressure 86 mm[Hg] Dr. Jose Ramon Turner Work Phone: [facility] 05-20-2022 08:50-0400 Heart rate 78 /min Dr. Jose Ramon Turner Work Phone: [facility] 05-20-2022 08:50-0400 Respiratory rate 18 /min Dr. Jose Ramon Turner Work Phone: [facility] 05-20-2022 08:50-0400 SaO2% (BldA) [Mass fraction] 96 % Dr. Jose Ramon Turner Work Phone: [facility] 05-20-2022 08:50-0400 Systolic blood pressure 133 mm[Hg] Dr. Jose Ramon Turner Work Phone: 2(137)978-624158 [place] [address] 05-20-2022 07:38-0400 Inhaled oxygen concentration 30 % Dr. Jose Ramon Turner Work Phone: [facility] 05-20-2022 04:08-0400 Body mass index (BMI) [Ratio] 37.9 kg/m2 Dr. Jose Ramon Turner Work Phone: 3(977)377-814058 [place] [address] 05-20-2022 04:08-0400 Body weight 123.[address] Jose Ramon Turner Work Phone: [facility] 05-19-2022 14:55-0400 Body height 180.[address] Jose Ramon Turner Work Phone: [facility] 05-18-2022 17:18-0400 Body temperature 97.5 [degF] Dr. Jose Ramon Turner Work Phone: [facility] 05-18-2022 17:18-0400 Diastolic blood pressure 113 mm[Hg] Dr. Jose Ramon Turner Work Phone: [facility] 05-18-2022 17:18-0400 Heart rate 97 /min Dr. Jose Ramon Turner Work Phone: [facility] 05-18-2022 17:18-0400 Respiratory rate 24 /min Dr. Jose Ramon Turner Work Phone: [facility] 05-18-2022 17:18-0400 SaO2% (BldA) [Mass fraction] 97 % Dr. Jose Ramon Turner Work Phone: [facility] 05-18-2022 17:18-0400 Systolic blood pressure 145 mm[Hg] Dr. Jose Ramon Turner Work Phone: [facility] 05-18-2022 14:59-0400 Body height 180.[address] Jose Ramon Turner Work Phone: [facility] 05-18-2022 14:59-0400 Body mass index (BMI) [Ratio] 38.6 kg/m2 Dr. Jose Ramon Turner Work Phone: [facility] 05-18-2022 14:59-0400 Body weight 125.[address] Jose Ramon Turner Work Phone: [facility] 04-16-2022 13:54-0500 Body temperature 97.7 [degF] Dr. Jose Ramon Turner Work Phone: [facility] 04-16-2022 13:54-0500 Diastolic blood pressure 88 mm[Hg] Dr. Jose Ramon Turner Work Phone: [facility] 04-16-2022 13:54-0500 Heart rate 98 /min Dr. Jose Ramon Turner Work Phone: [facility] 04-16-2022 13:54-0500 Respiratory rate 18 /min Dr. Jose Ramon Turner Work Phone: [facility] 04-16-2022 13:54-0500 SaO2% (BldA) [Mass fraction] 94 % Dr. Jose Ramon Turner Work Phone: [facility] 04-16-2022 13:54-0500 Systolic blood pressure 120 mm[Hg] Dr. Jose Ramon Turner Work Phone: [facility] 04-16-2022 09:58-0500 Inhaled oxygen flow rate 0 L/min Dr. Jose Ramon Turner Work Phone: [facility] 04-16-2022 06:00-0500 Body weight 121.[address] Jose Ramon Turner Work Phone: [facility] 04-16-2022 04:00-0500 Inhaled oxygen concentration 32 % Dr. Jose Ramon Turner Work Phone: [facility] 04-14-2022 10:03-0500 Body height 177.[address] Jose Ramon Turner Work Phone: [facility] 04-14-2022 01:15-0500 Body mass index (BMI) [Ratio] 38.5 kg/m2 Dr. Jose Ramon Turner Work Phone: [facility] 04-14-2022 00:37-0500 Body temperature 97.1 [degF] [facility] 04-14-2022 00:37-0500 Diastolic blood pressure 82 mm[Hg] [facility] 04-14-2022 00:37-0500 Heart rate 102 /min [facility] 04-14-2022 00:37-0500 Inhaled oxygen flow rate 2 L/min [facility] 04-14-2022 00:37-0500 Respiratory rate 22 /min [facility] 04-14-2022 00:37-0500 SaO2% (BldA) [Mass fraction] 100 % [facility] 04-14-2022 00:37-0500 Systolic blood pressure 116 mm[Hg] [facility] 04-13-2022 21:17-0500 Body height 180.34 cm [facility] 04-13-2022 21:17-0500 Body mass index (BMI) [Ratio] 35.8 kg/m2 [facility] 04-13-2022 21:17-0500 Body weight 116.57 kg [facility] 04-03-2022 10:31-0500 Body height 177.8 cm Daksha Turner Work Phone: [facility]Oieqbzj-Nduqjm [facility] 400 DO Work Phone: 04-03-2022 10:31-0500 Body mass index (BMI) [Ratio] 38.63 kg/m2 Daksha Gary Johnny Work Phone: UV-Ljvfmaz-Cdvvae ke [facility] 400 DO Work Phone: 04-03-2022 10:31-0500 Body surface area Derived from formula 2.37 m2 Daksha Gary Johnny Work Phone: OF-Fxqdxtw-Kmpmse ke SJ[facility] 400 DO Work Phone: 04-03-2022 10:31-0500 Body temperature 97.6 [degF] Daksha Gary Johnny Work Phone: LC-Ksspmkc-Yvkppc ke [facility] 400 DO Work Phone: 04-03-2022 10:31-0500 Body weight 122.13 kg Daksha Gary Johnny Work Phone: TV-Xhyvdnz-Csbtex ke [facility] 400 DO Work Phone: 04-03-2022 10:31-0500 Diastolic blood pressure 73 mm[Hg] Daksha Gary Johnny Work Phone: SY-Knuxbav-Wschbc ke [facility] 400 DO Work Phone: 04-03-2022 10:31-0500 Heart rate 123 /min Daksha Gary Johnny Work Phone: XJ-Rlwrjpl-Yyxkhm ke SJW 400 DO Work Phone: 04-03-2022 10:31-0500 Systolic blood pressure 111 mm[Hg] Daksha Gary Johnny Work Phone: EP-Zozjswi-Solpya ke SJW 400 DO Work Phone: 03-11-2022 13:10-0500 Body weight 118.84 kg Haylee Wilburn MD Work Phone: [facility] 03-11-2022 13:10-0500 Diastolic blood pressure 84 mm[Hg] Haylee Wilburn MD Work Phone: [facility] 03-11-2022 13:10-0500 Heart rate 78 /min Haylee Wilburn MD Work Phone: [facility] 03-11-2022 13:10-0500 Respiratory rate 16 /min Haylee Wilburn MD Work Phone: [facility] 03-11-2022 13:10-0500 Systolic blood pressure 134 mm[Hg] Haylee Wilburn MD Work Phone: [facility] [place] 02-17-2022 11:30-0500 Body weight 114.76 kg Haylee Wilburn MD Work Phone: [facility] 02-17-2022 11:30-0500 Diastolic blood pressure 74 mm[Hg] Haylee Wilburn MD Work Phone: [facility] [place] 02-17-2022 11:30-0500 Heart rate 72 /min Haylee Wilburn MD Work Phone: [facility] [place] 02-17-2022 11:30-0500 Respiratory rate 16 /min Haylee Wilburn MD Work Phone: [facility] [place] 02-17-2022 11:30-0500 Systolic blood pressure 132 mm[Hg] Haylee Wilburn MD Work Phone: [facility] [place] 02-16-2022 11:03-0500 Diastolic blood pressure 64 mm[Hg] Sayra Tello MD Work Phone: [facility] [place] 02-16-2022 11:03-0500 Systolic blood pressure 90 mm[Hg] Sayra Tello MD Work Phone: [facility] [place] 02-16-2022 10:55-0500 Body height 180.3 cm Sayra Tello MD Work Phone: [facility] [place] 02-16-2022 10:55-0500 Body weight 115.67 kg Sayra Tello MD Work Phone: [facility] [place] 02-16-2022 10:55-0500 Heart rate 51 /min Sayra Tello MD Work Phone: [facility] [place] 02-16-2022 10:55-0500 SaO2% (BldA) [Mass fraction] 94 % Sayra Tello MD Work Phone: [facility] [place] 02-13-2022 14:10-0500 Body temperature 98.2 [degF] Suman Peterson 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: [facility] [place] 02-13-2022 14:10-0500 Body weight 119.75 kg Suman Peterson 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: [facility] [place] 02-13-2022 14:10-0500 Diastolic blood pressure 87 mm[Hg] Suman Peterson 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: [facility] [place] 02-13-2022 14:10-0500 Heart rate 64 /min Suman Peterson 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: [facility] [place] 02-13-2022 14:10-0500 Respiratory rate 22 /min Suman Peterson 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: [facility] [place] 02-13-2022 14:10-0500 SaO2% (BldA) [Mass fraction] 94 % Suman Cullens 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: [facility] [place] 02-13-2022 14:10-0500 Systolic blood pressure 138 mm[Hg] Suman Peterson 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: [facility] [place] 02-10-2022 14:00-0500 Body temperature 97.52 [degF] Daksha Turner Other Phone: [facility] 02-10-2022 14:00-0500 Diastolic blood pressure 100 mm[Hg] Daksha Turner Other Phone: [facility] 02-10-2022 14:00-0500 Heart rate 87 /min Daksha Turner Other Phone: [facility] 02-10-2022 14:00-0500 Respiratory rate 18 /min Daksha Turner Other Phone: [facility] 02-10-2022 14:00-0500 SaO2% (BldA) [Mass fraction] 94 % Daksha Turner Other Phone: [facility] 02-10-2022 14:00-0500 Systolic blood pressure 126 mm[Hg] Daksha Turner Other Phone: [facility] 01-29-2022 15:08-0500 Respiratory rate 20 /min Dr. Jose Ramon Turner Work Phone: [facility] 01-29-2022 14:36-0500 Diastolic blood pressure 128 mm[Hg] Dr. Jose Ramon Turner Work Phone: [facility] 01-29-2022 14:36-0500 Heart rate 101 /min Dr. Jose Ramon Turner Work Phone: [facility] 01-29-2022 14:36-0500 SaO2% (BldA) [Mass fraction] 98 % Dr. Jose Ramon Turner Work Phone: [facility] 01-29-2022 14:36-0500 Systolic blood pressure 157 mm[Hg] Dr. Jose Ramon Turner Work Phone: [facility] 01-29-2022 14:00-0500 Inhaled oxygen flow rate 2 L/min Dr. Jose Ramon Turner Work Phone: [facility] 01-29-2022 11:54-0500 Body height 177.[address] Jose Ramon Turner Work Phone: [facility] Work Phone: 01-29-2022 11:54-0500 Body mass index (BMI) [Ratio] 40.1 kg/m2 Dr. Jose Ramon Turner Work Phone: [facility] 01-29-2022 11:54-0500 Body temperature 97.6 [degF] Dr. Jose Ramon Turner Work Phone: [facility] 01-29-2022 11:54-0500 Body weight 126.[address] Jose Ramon Turner Work Phone: [facility] 01-20-2022 20:25-0500 Diastolic blood pressure 103 mm[Hg] Dr. Jose Ramon Turner Work Phone: [facility] 01-20-2022 20:25-0500 Heart rate 88 /min Dr. Jose Ramon Turner Work Phone: [facility] 01-20-2022 20:25-0500 Respiratory rate 31 /min Dr. Jose Ramon Turner Work Phone: [facility] 01-20-2022 20:25-0500 SaO2% (BldA) [Mass fraction] 97 % Dr. Jose Ramon Turner Work Phone: [facility] 01-20-2022 20:25-0500 Systolic blood pressure 136 mm[Hg] Dr. Jose Ramon Turner Work Phone: [facility] 01-20-2022 18:43-0500 Body height 177.[address] Jose Ramon Turner Work Phone: [facility] Work Phone: 01-20-2022 18:43-0500 Body mass index (BMI) [Ratio] 30.9 kg/m2 Dr. Jose Ramon Turner Work Phone: [facility] 01-20-2022 18:43-0500 Body temperature 97.7 [degF] Dr. Jose Ramon Turner Work Phone: [facility] 01-20-2022 18:43-0500 Body weight 97.[address] Jose Ramon Turner Work Phone: [facility] 12-09-2021 10:15-0400 Body height 177.8 cm Alfredo Xavier MD Work Phone: [facility] [place] 12-09-2021 10:15-0400 Body weight 114.31 kg Alfredo Xavier MD Work Phone: [facility] 12-09-2021 10:15-0400 Diastolic blood pressure 91 mm[Hg] Alfredo Xavier MD Work Phone: [facility] 12-09-2021 10:15-0400 Heart rate 98 /min Alfredo Xavier MD Work Phone: [facility] 12-09-2021 10:15-0400 Respiratory rate 22 /min Alfredo Xavier MD Work Phone: [facility] 12-09-2021 10:15-0400 SaO2% (BldA) [Mass fraction] 96 % Alfredo Xavier MD Work Phone: [facility] 12-09-2021 10:15-0400 Systolic blood pressure 131 mm[Hg] Alfredo Xavier MD Work Phone: [facility] 12-09-2021 07:44-0400 Body temperature 97 [degF] Dr. Jose Ramon Turner Work Phone: [facility] Work Phone: 12-09-2021 07:44-0400 Diastolic blood pressure 88 mm[Hg] Dr. Jose Ramon Turner Work Phone: [facility] Work Phone: 12-09-2021 07:44-0400 Heart rate 61 /min Dr. Jose Ramon Turner Work Phone: [facility] Work Phone: 12-09-2021 07:44-0400 Respiratory rate 16 /min Dr. Jose Ramon Turner Work Phone: [facility] Work Phone: 12-09-2021 07:44-0400 SaO2% (BldA) [Mass fraction] 96 % Dr. Jose Ramon Turner Work Phone: [facility] Work Phone: 12-09-2021 07:44-0400 Systolic blood pressure 112 mm[Hg] Dr. Jose Ramon Turner Work Phone: [facility] Work Phone: 12-08-2021 17:06-0400 Inhaled oxygen flow rate 2 L/min Dr. Jose Ramon Turner Work Phone: [facility] Work Phone: 12-08-2021 12:50-0400 Body weight 116.[address] Jose Ramon Turner Work Phone: [facility] Work Phone: 12-07-2021 16:40-0400 Body mass index (BMI) [Ratio] 36.7 kg/m2 Dr. Jose Ramon Turner Work Phone: [facility] Work Phone: 12-07-2021 16:29-0400 Body temperature 98.4 [degF] [facility] Work Phone: 12-07-2021 16:29-0400 Diastolic blood pressure 78 mm[Hg] [facility] Work Phone: 12-07-2021 16:29-0400 Heart rate 98 /min [facility] Work Phone: 12-07-2021 16:29-0400 Inhaled oxygen flow rate 2 L/min [facility] Work Phone: 12-07-2021 16:29-0400 Respiratory rate 24 /min [facility] Work Phone: 12-07-2021 16:29-0400 SaO2% (BldA) [Mass fraction] 97 % [facility] Work Phone: 12-07-2021 16:29-0400 Systolic blood pressure 134 mm[Hg] [facility] Work Phone: 12-07-2021 13:38-0400 Body height 177.8 cm [facility] Work Phone: 12-07-2021 13:38-0400 Body mass index (BMI) [Ratio] 36.6 kg/m2 [facility] Work Phone: 12-07-2021 13:38-0400 Body weight 115.66 kg [facility] Work Phone: 11-19-2021 08:48-0400 Body height 177.8 cm Haylee Wilburn MD Work Phone: [facility] [place] 11-19-2021 08:48-0400 Body weight 118.84 kg Haylee Wilburn MD Work Phone: [facility] [place] 11-19-2021 08:48-0400 Diastolic blood pressure 82 mm[Hg] Haylee Wilburn MD Work Phone: [facility] [place] 11-19-2021 08:48-0400 Heart rate 76 /min Haylee Wilburn MD Work Phone: [facility] [place] 11-19-2021 08:48-0400 Respiratory rate 18 /min Haylee Wilburn MD Work Phone: [facility] [place] 11-19-2021 08:48-0400 Systolic blood pressure 130 mm[Hg] Haylee Wilburn MD Work Phone: [facility] [place] 10-27-2021 11:35-0400 Body height 177.8 cm Pacc 2 Work Phone: [facility] 10-27-2021 11:35-0400 Body temperature 97.7 [degF] Pacc 2 Work Phone: [facility] [place] 10-27-2021 11:35-0400 Body weight 118.39 kg Pacc 2 Work Phone: [facility] [place] 10-27-2021 11:35-0400 Diastolic blood pressure 88 mm[Hg] Pacc 2 Work Phone: [facility] [place] 10-27-2021 11:35-0400 Heart rate 77 /min Pacc 2 Work Phone: [facility] [place] 10-27-2021 11:35-0400 SaO2% (BldA) [Mass fraction] 96 % Pacc 2 Work Phone: [facility] [place] 10-27-2021 11:35-0400 Systolic blood pressure 127 mm[Hg] Pacc 2 Work Phone: [facility] [place] 10-09-2021 10:24-0400 Body temperature 97.7 [degF] Godfrey Maroli 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: [facility] [place] 10-09-2021 10:24-0400 Body weight 118.84 kg Godfrey Maroli 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: [facility] 10-09-2021 10:24-0400 Diastolic blood pressure 89 mm[Hg] Godfrey Maroli 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: [facility] [place] 10-09-2021 10:24-0400 Heart rate 74 /min Godfrey Maroli 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: [facility] [place] 10-09-2021 10:24-0400 Respiratory rate 20 /min Godfrey Maroli 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: [facility] [place] 10-09-2021 10:24-0400 SaO2% (BldA) [Mass fraction] 97 % Godfrey Maroli 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: [facility] [place] 10-09-2021 10:24-0400 Systolic blood pressure 130 mm[Hg] Godfrey Maroli 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: [facility] [place] 09-22-2021 12:16-0400 Body height 180.3 cm Chaka Doris 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: [facility] [place] 09-22-2021 12:16-0400 Body weight 125.19 kg Chaka Doris 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: [facility] [place] 09-22-2021 12:16-0400 Diastolic blood pressure 90 mm[Hg] Chaka Doris 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: [facility] [place] 09-22-2021 12:16-0400 Heart rate 90 /min Chaka Doris 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: [facility] [place] 09-22-2021 12:16-0400 Respiratory rate 18 /min Chaka George 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: [facility] [place] 09-22-2021 12:16-0400 SaO2% (BldA) [Mass fraction] 97 % Chaka George 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: [facility] [place] 09-22-2021 12:16-0400 Systolic blood pressure 128 mm[Hg] Chaka George 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: [facility] [place] 09-11-2021 13:30-0400 Body temperature 97.11 [degF] Kenneth Chester MD Work Phone: [facility] [place] 09-11-2021 13:30-0400 Body weight 118.07 kg Kenneth Chester MD Work Phone: [facility] [place] 09-11-2021 13:30-0400 Diastolic blood pressure 89 mm[Hg] Kenneth Chester MD Work Phone: [facility] [place] 09-11-2021 13:30-0400 Heart rate 92 /min Kenneth Chester MD Work Phone: [facility] [place] 09-11-2021 13:30-0400 Respiratory rate 20 /min Kenneth Chester MD Work Phone: [facility] [place] 09-11-2021 13:30-0400 SaO2% (BldA) [Mass fraction] 95 % Kenneth Chester MD Work Phone: [facility] [place] 09-11-2021 13:30-0400 Systolic blood pressure 139 mm[Hg] Kenneth Chester MD Work Phone: [facility] [place] 09-02-2021 14:09-0400 Body temperature 97.9 [degF] [place] (Trac) Work Phone: [facility] [place] 09-02-2021 14:09-0400 Body weight 118.16 kg [place] (Trac) Work Phone: [facility] [place] 09-02-2021 14:09-0400 Diastolic blood pressure 99 mm[Hg] [place] (Trac) Work Phone: [facility] [place] 09-02-2021 14:09-0400 Heart rate 105 /min [place] (Trac) Work Phone: [facility] [place] 09-02-2021 14:09-0400 Respiratory rate 22 /min [place] (Trac) Work Phone: [facility] [place] 09-02-2021 14:09-0400 SaO2% (BldA) [Mass fraction] 100 % [place] (Trac) Work Phone: [facility] [place] 09-02-2021 14:09-0400 Systolic blood pressure 135 mm[Hg] [place] (Trac) Work Phone: [facility] [place] 08-19-2021 11:57-0400 Body temperature 98.1 [degF] Godfrey Clayton RN [facility] 08-19-2021 11:57-0400 Respiratory rate 18 /min Godfrey Clayton RN [facility] 08-19-2021 10:05-0400 Body weight 113.81 kg Lalo Black MD Work Phone: [facility] [place] 08-19-2021 10:05-0400 Diastolic blood pressure 102 mm[Hg] Lalo Black MD Work Phone: [facility] 08-19-2021 10:05-0400 Heart rate 90 /min Lalo Black MD Work Phone: [facility] [place] 08-19-2021 10:05-0400 SaO2% (BldA) [Mass fraction] 96 % Lalo Black MD Work Phone: [facility] [place] 08-19-2021 10:05-0400 Systolic blood pressure 136 mm[Hg] Lalo Black MD Work Phone: [facility] [place] 08-08-2021 09:19-0400 Body temperature 99 [degF] Godfrey Maroli 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: [facility] [place] 08-08-2021 09:19-0400 Body weight 117.98 kg Godfrey Maroli 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: [facility] [place] 08-08-2021 09:19-0400 Diastolic blood pressure 98 mm[Hg] Godfrey Maroli 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: [facility] [place] 08-08-2021 09:19-0400 Heart rate 109 /min Godfrey Maroli 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: [facility] 08-08-2021 09:19-0400 Respiratory rate 20 /min Godfrey Maroli 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: [facility] 08-08-2021 09:19-0400 SaO2% (BldA) [Mass fraction] 95 % Godfrey Maroli 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: [facility] 08-08-2021 09:19-0400 Systolic blood pressure 141 mm[Hg] Godfrey Maroli 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: [facility] [place] 08-06-2021 09:56-0400 Body temperature 98.1 [degF] Godfrey Clayton RN [facility] 08-06-2021 09:56-0400 Body weight 118.3 kg Godfrey Clayton RN [facility] 08-06-2021 09:56-0400 Diastolic blood pressure 92 mm[Hg] Godfrey Clayton RN [facility] 08-06-2021 09:56-0400 Heart rate 99 /min Godfrey Clayton RN [facility] 08-06-2021 09:56-0400 Respiratory rate 20 /min Godfrey Clayton RN [facility] 08-06-2021 09:56-0400 SaO2% (BldA) [Mass fraction] 99 % Godfrey Clayton RN [facility] 08-06-2021 09:56-0400 Systolic blood pressure 144 mm[Hg] Godfrey Clayton RN [facility] [place] 07-31-2021 09:23-0400 Diastolic blood pressure 103 mm[Hg] Lalo Black MD Work Phone: [facility] [place] 07-31-2021 09:23-0400 Heart rate 72 /min Lalo Black MD Work Phone: [facility] 07-31-2021 09:23-0400 Respiratory rate 12 /min Lalo Black MD Work Phone: [facility] [place] 07-31-2021 09:23-0400 SaO2% (BldA) [Mass fraction] 95 % Lalo Black MD Work Phone: [facility] [place] 07-31-2021 09:23-0400 Systolic blood pressure 147 mm[Hg] Lalo Black MD Work Phone: [facility] [place] 07-24-2021 10:13-0400 Body temperature 98.29 [degF] Godfrey Maroli 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: [facility] [place] 07-24-2021 10:13-0400 Body weight 118 kg Godfrey Maroli 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: [facility] 07-24-2021 10:13-0400 Diastolic blood pressure 92 mm[Hg] Godfrey Maroli 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: [facility] 07-24-2021 10:13-0400 Heart rate 88 /min Godfrey Maroli 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: [facility] 07-24-2021 10:13-0400 Respiratory rate 20 /min Godfrey Maroli 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: [facility] 07-24-2021 10:13-0400 SaO2% (BldA) [Mass fraction] 99 % Godfrey Maroli 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: [facility] 07-24-2021 10:13-0400 Systolic blood pressure 146 mm[Hg] Godfrey Maroli 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: [facility] [place] 07-21-2021 08:57-0400 Diastolic blood pressure 91 mm[Hg] Godfrey Clayton RN [facility] 07-21-2021 08:57-0400 Systolic blood pressure 146 mm[Hg] Godfrey Clayton RN [facility] 07-21-2021 08:49-0400 Body temperature 98.2 [degF] Godfrey Clayton RN [facility] 07-21-2021 08:49-0400 Heart rate 72 /min Godfrey Clayton RN [facility] 07-21-2021 08:49-0400 Respiratory rate 20 /min Godfrey Clayton RN [facility] 07-21-2021 08:49-0400 SaO2% (BldA) [Mass fraction] 99 % Godfrey Clayton RN [facility] 07-14-2021 14:42-0400 Body temperature 99.5 [degF] Godfrey Maroli 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: [facility] 07-14-2021 14:42-0400 Body weight 118.48 kg Godfrey Maroli 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: [facility] 07-14-2021 14:42-0400 Diastolic blood pressure 99 mm[Hg] Godfrey Maroli 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: [facility] 07-14-2021 14:42-0400 Heart rate 77 /min Godfrey Maroli 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: [facility] 07-14-2021 14:42-0400 Respiratory rate 20 /min Godfrey Maroli 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: [facility] 07-14-2021 14:42-0400 SaO2% (BldA) [Mass fraction] 100 % Godfrey Maroli 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: [facility] 07-14-2021 14:42-0400 Systolic blood pressure 143 mm[Hg] Godfrey Maroli 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: [facility] [place] 07-02-2021 11:53-0400 Diastolic blood pressure 89 mm[Hg] Kenneth Chester MD Work Phone: [facility] [place] 07-02-2021 11:53-0400 Heart rate 71 /min Kenneth Chester MD Work Phone: [facility] 07-02-2021 11:53-0400 Respiratory rate 20 /min Kenneth Chester MD Work Phone: [facility] 07-02-2021 11:53-0400 SaO2% (BldA) [Mass fraction] 98 % Kenneth Chester MD Work Phone: [facility] 07-02-2021 11:53-0400 Systolic blood pressure 150 mm[Hg] Kenneth Chester MD Work Phone: [facility] [place] 06-23-2021 10:56-0400 Body weight 115.03 kg Adriana Hodge MD Work Phone: [facility] [place] 06-23-2021 10:56-0400 Diastolic blood pressure 92 mm[Hg] Adriana Hodge MD Work Phone: [facility] [place] 06-23-2021 10:56-0400 Heart rate 59 /min Adriana Hodge MD Work Phone: [facility] [place] 06-23-2021 10:56-0400 Systolic blood pressure 142 mm[Hg] Adriana Hodge MD Work Phone: [facility] [place] 06-19-2021 19:35-0400 Body temperature 98.6 [degF] Family Unavailable [facility] 06-19-2021 19:35-0400 Diastolic blood pressure 90 mm[Hg] Family Unavailable [facility] 06-19-2021 19:35-0400 Heart rate 71 /min Family Unavailable [facility] 06-19-2021 19:35-0400 Respiratory rate 20 /min Family Unavailable [facility] 06-19-2021 19:35-0400 SaO2% (BldA) [Mass fraction] 100 % Family Unavailable [facility] 06-19-2021 19:35-0400 Systolic blood pressure 156 mm[Hg] Family Unavailable [facility] 06-19-2021 15:47-0400 Body height 180.34 cm Family Unavailable [facility] 06-19-2021 15:47-0400 Body mass index (BMI) [Ratio] 34.1 kg/m2 Family Unavailable [facility] 06-19-2021 15:47-0400 Body weight 111 kg Family Unavailable [facility] Encounters Encounter Date Encounter Type Care Provider Facility Start: 10-02-2024 End: 10-02-2024 Patient encounter procedure Gini CONLEY -[facility] Work Phone: Start: 10-02-2024 End: 10-02-[address] Daksha Turner MD Work Phone: [facility] Start: 10-02-2024 End: 10-02-2024 ambulatory Daksha Turner Facility:[facility] Start: 09-26-2024 Non-patient / Non-visit Gini plascencia NP-Tangela -[facility] Work Phone: Start: 09-26-2024 ambulatory Daksha Turner Faci lity:[facility] Start: 09-25-2024 ambulatory Daksha Turner Faci lity:[facility] Start: 09-25-2024 Non-patient / Non-visit Dr. Peg CLEMENT -[facility] Start: 09-25-2024 End: 09-25-[address] Daksha Turner MD Work Phone: -[facility] [place] Start: 09-25-2024 End: 09-25-[address] Daksha Turner MD -[facility] [place] Work Phone: Start: 09-25-2024 End: 09-25-[address] Daksha Turner MD Work Phone: -Cardiovascular Services Start: 09-25-2024 End: 09-25-2024 Patient encounter procedure Gini CONLEY -[facility] Work Phone: Start: 09-24-2024 End: 09-25-2024 ambulatory Daksha Turner Facility:[facility] Start: 09-24-2024 Non-patient / Non-visit Dr. Peg CLEMENT -[facility] Start: 09-12-2024 ambulatory Daksha Nicholas lity:[facility] Start: 08-14-2024 End: 09-04-[address] Daksha Turner MD -Nutritional Services Work Phone: Start: 08-14-[address] Fazal Turner MD -Nutritional Services Work Phone: Start: 08-14-2024 End: 09-04-[address] Daksha Turner MD Work Phone: -Nutritional Services Start: 08-14-2024 End: 08-14-2024 Patient encounter procedure Gini Couch NP-Tangela -[facility] Work Phone: Start: 08-14-2024 End: 08-14-[address] Daksha Turner MD Work Phone: [facility] Work Phone: Start: 08-14-2024 End: 08-14-2024 ambulatory Gini Couch Facility:[facility] Start: 08-01-2024 ambulatory Daksha Arthuri lity:[facility] Start: 07-18-2024 ambulatory Daksha Nicholas lity:[facility] Start: 06-20-2024 End: 06-20-[address] Daksha Turner MD Work Phone: [facility] Work Phone: Start: 06-20-2024 End: 06-20-[address] Dangelo Botello MD -[facility] Work Phone: Start: 06-20-2024 End: 06-20-2024 ambulatory Daksha Turner Facility:[facility] Start: 06-13-2024 End: 06-13-[address] Daksha Turner MD Work Phone: [facility] Work Phone: Start: 06-13-2024 End: 06-13-[address] Dangelo Botello MD -Cat Scan, [facility] Work Phone: Start: 06-13-2024 End: 06-13-2024 ambulatory Daksha Turner Facility:[facility] Start: 06-05-2024 End: 06-05-[address] Daksha Turner MD -Nutritional Services Work Phone: Start: 06-05-2024 End: 06-05-[address] Daksha Turner MD Work Phone: [facility] Work Phone: Start: 03-22-2024 End: 03-22-[address] Isidra Chiu DO -Laboratory Work Phone: Start: 03-22-2024 End: 03-22-2024 ambulatory Isidra Chiu Facility:[facility] Start: 02-08-2024 End: 02-08-[address] Daksha Turner MD -Cat Scan, [facility] Work Phone: Start: 02-08-2024 End: 02-08-2024 ambulatory Daksha Turner Facility:[facility] Start: 01-11-2024 End: 01-11-2024 ambulatory Daksha Turner Facility:[facility] Start: 12-22-2023 End: 12-22-2023 ambulatory Daksha Turner [place] Start: 12-22-2023 End: 12-22-2023 ambulatory Daksha Turner Facility:[facility] Start: 05-27-2023 End: 05-27-[address] Jose Ramon Turner Work Phone: [facility] Work Phone: Start: 05-27-2023 End: 05-27-[address] Jose Ramon Turner Work Phone[facility] Start: 05-21-2023 End: 05-21-[address] Jose Ramon Turner Work Phone: [facility] Work Phone: Start: 05-21-2023 End: 05-21-[address] Jose Ramon Turner Work Phone: [facility]-Laboratory, Specimen Work Phone: Start: 05-20-2023 End: 05-20-[address] Jose Ramon Turner Work Phone: [facility] Work Phone: Start: 05-20-2023 End: 05-20-[address] Jose Ramon Turner Work Phone: [facility]-Laboratory Work Phone: Start: 04-26-2023 End: 04-26-[address] Jose Ramon Turner Work Phone: [facility] Work Phone: Start: 04-26-2023 End: 04-26-[address] Jose Ramon Turner Work Phone: [facility] Work Phone: Start: 04-12-[address] Fazal Turner Work Phone: [facility] Start: 04-12-2023 End: 04-12-[address] Jose Ramon Turner Work Phone: [facility] Work Phone: Start: 03-04-2023 End: 03-04-[address] Jose Ramon Turner Work Phone: [facility] Work Phone: Start: 03-04-2023 End: 03-04-[address] Jose Ramon Turner Work Phone: [facility] Work Phone: Start: 02-12-2023 End: 02-12-[address] Jose Ramon Turner Work Phone: [facility] Work Phone: Start: 02-12-2023 End: 02-12-[address] Jose Ramon Turner Work Phone: [facility]-Laboratory, Specimen Work Phone: Start: 12-30-2022 End: 12-30-[address] Jose Ramon Turner Work Phone: [facility] Work Phone: Start: 12-30-2022 End: 12-30-[address] Jose Ramon Turner Work Phone: [facility]-Radiology, [place] Work Phone: Start: 12-17-2022 Non-patient / Non-visit Dr. Sejal Turner Work Phone: [facility] Work Phone: Start: 12-16-2022 End: 12-17-2022 Evaluation and management of inpatient Dr. Jose Ramon Turner Work Phone: [facility]-Progressive Care Unit Work Phone: Start: 12-16-2022 Non-patient / Non-visit Dr. Sejal Turner Work Phone: [facility] Work Phone: Start: 12-15-2022 Non-patient / Non-visit Dr. Sejal Turner Work Phone: [facility] Work Phone: Start: 11-12-2022 End: 11-12-[address] Jose Ramon Turner Work Phone: [facility]-Laboratory, [place] Work Phone: Start: 09-29-2022 End: 09-29-[address] Jose Ramon Turner Work Phone: [facility] Work Phone: Start: 09-03-2022 End: 09-03-[address] Jose Ramon Turner Work Phone: [facility] Work Phone: Start: 09-03-[address] Fazal Turner Work Phone: [facility] Start: 09-01-2022 End: 09-01-[address] Jose Ramon Turner Work Phone: [facility] Work Phone: Start: 09-01-2022 End: 09-01-[address] Jose Ramon Turner Work Phone: [facility] Work Phone: Start: 07-17-[address] Jose Ramon Turner Facility:[id number] Start: 07-16-2022 Non-patient / Non-visit Dr. Sejal Turner Work Phone: [facility] Start: 07-16-2022 End: 07-16-[address] Jose Ramon Turner Work Phone: [facility]-Pulmonary Services/Neurology Work Phone: Start: 06-29-2022 Non-patient / Non-visit Dr. Sejal Turner Work Phone: [facility] Start: 06-28-2022 End: 06-29-2022 Evaluation and management of inpatient Dr. Jose Ramon Turner Work Phone: [facility]-Progressive Care Unit Start: 05-27-2022 End: 05-27-[address] Jose Ramon Turner Work Phone: [facility] Start: 05-27-2022 End: 05-27-[address] Jose Ramon Turner Work Phone: [facility] Start: 05-20-2022 Non-patient / Non-visit Dr. Sejal Turner Work Phone: [facility] Start: 05-19-2022 Non-patient / Non-visit Dr. Sejal Turner Work Phone: [facility] Start: 05-18-2022 End: 05-20-2022 Evaluation and management of inpatient Dr. Jose Ramon [facility] Start: 04-16-2022 Non-patient / Non-visit Dr. Sejal Turner Work Phone: [facility] Start: 04-15-2022 Non-patient / Non-visit Dr. Sejal Turner Work Phone: [facility] Start: 04-15-2022 End: 04-15-2022 Non-patient / Non-visit Dr. Jose Ramon Turner Work Phone: [facility] Start: 04-14-2022 Non-patient / Non-visit Dr. Sejal Turner Work Phone: [facility] Start: 04-14-2022 Non-patient / Non-visit Dr. Sejal Turner Work Phone: [facility] Start: 04-13-2022 End: 04-16-2022 [facility] Start: 04-13-2022 End: 04-13-[address] Jose Ramon Turner Work Phone: [facility] Work Phone: Start: 04-13-2022 End: 04-13-2022 Patient encounter procedure [facility] Start: 04-09-2022 End: 04-10-2022 ambulatory DAKSHA TURNER Facility:[id number] Start: 04-09-2022 End: 04-09-2022 ambulatory Chair 7 [facility] Comment on above: Malignant neoplasm o f right kidney, except renal pelvis (HCC) (Primary Dx) Start: 04-03-2022 Postop follow up vis it related to original px Daksha Turner Work Phone: [facility] 400 DO Work Phone: Start: 04-03-[address] Jose Ramon Turner Facility:[id number] Start: 04-02-2022 Telephone encounter America Schwartz RN Hematology Oncology Comment on above: Appointment Appointment (No show ) Start: 03-26-2022 ambulatory HAYLEE WILBURN Facility :[id number] Start: 03-26-2022 End: 03-26-2022 Subsequent hospital visit by physician [facility] Work Phone: Radiology CT Scan Comment on above: Malignant neoplasm o f right kidney, except renal pelvis [C64.1] Start: 03-25-2022 Telephone encounter Haylee Wilburn MD Work Phone: Hematology Oncology Comment on above: Appointment; Care Co ordinator - Other Start: 03-23-2022 [facility] Comment on above: [facility] [place] Start: 03-23-2022 Patient encounter procedure Haley Sadler RT(R) [facility] Start: 03-23-2022 End: 03-23-2022 Subsequent hospital visit by physician [facility] 1 Work Phone: Nuclear Medicine Comment on above: Renal cell carcinoma of right kidney (HCC) [C64.1] Start: 03-16-2022 Refill Haylee Wilburn MD Work Phone: Hematology/Oncology Comment on above: Refill Request (Inly ta to [facility]) Start: 03-12-2022 ambulatory Malachi Schaffer [facility] Start: 03-12-2022 [facility] Comment on above: SPP Oral Oncology/he matology - Treatment Referral (Inlyta); Insurance Authorization (Pending PA) Start: 03-12-2022 Telephone encounter America Schwartz RN Hematology Oncology Comment on above: Appointment Start: 03-11-2022 End: 03-12-2022 ambulatory HAYLEE WILBURN Facility:[id number] Start: 03-11-2022 End: 03-11-2022 Office outpatient visit 25 minutes Haylee Wilburn MD Work Phone: Hematology Oncology Comment on above: Renal cell carcinoma of right kidney (HCC) (Primary Dx) Start: 02-26-2022 [id number] Start: 02-26-2022 End: 02-26-2022 Subsequent hospital visit by physician Echo Lab 3 [facility] Comment on above: Acute decompensated heart failure (HCC) [I50.9] Start: 02-17-2022 End: 02-18-2022 ambulatory HAYLEE WILBURN Facility:[id number] Start: 02-17-2022 End: 02-17-2022 Office outpatient visit 25 minutes Haylee Wilburn MD Work Phone: Hematology Oncology Comment on above: Metastatic renal maggie l carcinoma, unspecified laterality (HCC) (Primary Dx) Start: 02-16-2022 End: 02-16-2022 ambulatory SAYRA TELLO Facility:[id number] Start: 02-16-2022 End: 02-16-2022 Office outpatient new 60 minutes Sayra Tello MD Work Phone: [facility] Comment on above: Paroxysmal atrial fi brillation (HCC) (Primary Dx); Nonrheumatic mitral valve regurgitation; Acute decompensated heart failure (HCC); Essential hypertension; Tobacco use disorder; NIMCO (obstructive sleep apnea) Start: 02-13-2022 End: 02-14-2022 ambulatory SUMAN PETERSON Facility:[id number] Start: 02-13-2022 End: 02-13-2022 Patient encounter procedure Suman Peterson [employer]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: 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 Oncology Comment on above: Renal cell carcinoma of right kidney metastatic to other site (HCC) (Primary Dx) Start: 02-11-2022 Chart abstracting Adrienne Lee MA [facility] Start: 02-06-2022 [facility], Provider: Aravind Hernandez, Status: Pen, Time: 9:30 AM Daksha Turner Work Phone: [facility] 400 DO Work Phone: Start: 02-06-2022 End: 02-10-2022 Evaluation and management of inpatient Aravind [place] [id number] Start: 02-05-2022 Telephone encounter Sayra Tello MD Work Phone: [facility] Comment on above: Patient Question Start: 02-05-2022 Chart Update Daksha Turner Work Phone: TL-Xxnboif-Jwphcb[facility] 400 DO Work Phone: Start: 02-03-2022 Chart Update Daksha Turner Work Phone: MJ[facility]aeid[facility] 400 DO Work Phone: Start: 01-29-2022 End: 01-29-2022 Emergency department patient visit Dr. Jose Ramon Turner Work Phone: [facility]-Emergency Department Start: 01-27-[address] ARAVIND Barragan acility:[id number] Start: 01-27-2022 Encounter for blood typing Dr. ARAVIND HERNANDEZ [facility] Start: 01-27-2022 Encounter for preprocedural laboratory examination Dr. ARAVIND HERNANDEZ [facility] Start: 01-23-2022 ambulatory Krish Scott Work Phone: Urology Start: 01-22-2022 Refill Kitty cook PA-C Work Phone: Hematology Oncology Comment on above: Refill Request Start: 01-20-2022 End: 01-20-2022 Emergency department patient visit Dr. Jose Ramon Turner Work Phone: [facility]-Emergency Department Start: 01-19-2022 ambulatory KITTY Rojas ty:[id number] Start: 01-19-2022 End: 01-19-2022 Subsequent hospital visit by physician [facility] Comment on above: Renal cell carcinoma of right kidney (HCC) [C64.1] Start: 2022 Patient encounter procedure Alfredo Xavier MD Work Phone: [facility] Start: 2022 Radiation Oncology Note Alfredo Xavier MD Work Phone: Radiation Oncology Comment on above: Completion Note Start: 12-30-2021 ambulatory Julee Nash RN [facility] Urological & Start: 12-30-2021 Telephone encounter Adriana glynn MD Work Phone: Urology Comment on above: Informed Consent Start: 12-28-2021 Telephone encounter Adriana glynn MD Work Phone: Urology Comment on above: 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; Patient Update Start: 12-27-2021 Telephone encounter Adriana glynn MD Work Phone: Urology Comment on above: Patient Update Start: 12-26-2021 End: 12-26-2021 ambulatory ALFREDO XAVIER Facility:[id number] Start: 12-25-2021 End: 12-25-2021 ambulatory ALFREDO XAVIER Facility:[id number] Start: 12-24-2021 End: 12-24-2021 ambulatory ALFREDO XAVIER Facility:[id number] Start: 12-23-2021 End: 12-23-2021 ambulatory ALFREDO XAVIER Facility:[id number] Start: 12-22-2021 End: 12-22-2021 ambulatory ALFREDO XAVIER Facility:[id number] Start: 12-12-2021 Patient encounter procedure Alfredo Xavier MD Work Phone: [facility] Start: 12-12-2021 Radiation Oncology Note Alfredo Xavier MD Work Phone: Radiation Oncology Comment on above: Treatment Planning Simulation Note Start: 12-12-2021 End: 12-12-2021 ambulatory ALFREDO XAVIER Facility:[id number] Start: 12-09-2021 End: 12-09-2021 ambulatory Noreen Morejon Work Phone: [facility] Chronic Disease Management Start: 12-09-2021 [facility] visit new patient Noreen Morejon Work Phone: [facility] Chronic Disease Management Comment on above: New patient, to genesis griggs relationship; Invalid number; Letter Request Start: 12-09-2021 End: 12-09-2021 Office outpatient visit 15 minutes Alfredo Xavier MD Work Phone: Radiation Oncology Comment on above: Renal cell carcinoma of right kidney (HCC) (Primary Dx) Start: 12-09-2021 Non-patient / Non-visit Dr. Sejal Turner Work Phone: [facility] Start: 12-08-2021 Non-patient / Non-visit Dr. Sejal Turner Work Phone: [facility] Start: 12-07-2021 Non-patient / Non-visit Dr. Sejal Turner Work Phone: [facility] Start: 12-07-2021 End: 12-09-2021 Evaluation and management of inpatient [facility]-Progressive Care Unit Start: 11-29-2021 Telephone encounter Adriana glynn MD Work Phone: Urology Comment on above: Results; Patient Upd ate; Lamination Builder - Other Start: 11-24-2021 Telephone encounter America Schwartz RN Hematology Oncology Comment on above: Patient Update (Call ed patient to inform him that the speciality pharmacy is going to call to set-up delivery time for his chemo medication. Patient verbalized understanding. America Schwartz, RN, BSN, OCN/) Start: 11-20-2021 End: 11-20-2021 ambulatory KIMOELA TURNER Facility:[facility] Start: 11-20-2021 End: 11-20-2021 Subsequent hospital visit by physician Ct 2 Main Qb (I-Stat) Radiology Comment on above: Malignant neoplasm o f right kidney, except renal pelvis (HCC) [C64.1] Start: 11-19-2021 End: 11-20-2021 ambulatory HAYLEE WILBURN Facility:[id number] Start: 11-19-2021 End: 11-19-2021 Office outpatient visit 25 minutes Haylee Wilburn MD Work Phone: Hematology Oncology Comment on above: Metastatic renal maggie l carcinoma, unspecified laterality (HCC) (Primary Dx) Start: 11-06-2021 Telephone encounter Haylee pimentel Work Phone: Hematology Oncology Comment on above: Patient Update 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 (Calling to get an [...] Start: 10-27-2021 End: 10-28-2021 ambulatory DAKSHA TURNER Facility:[facility] Start: 10-27-2021 End: 10-27-2021 [facility] Pac Main 2 Work Phone: [...] without esophagitis; Prediabetes; Coronary artery disease involving jamul coronary artery of jamul heart, unspecified whether angina present PreOp Call (Cardiac Optimization, Warfarin Clearance) Start: 10-27-2021 End: 10-28-2021 ambulatory DAKSHA TURNER Facility:[facility] Start: 10-27-2021 Encounter for other preprocedural examination KENNETH CHESTER [facility] Start: 10-27-2021 End: 10-27-2021 Preprocedural examination done Pac Main 2 Work Phone: Pre Anesthesia Start: 10-21-2021 Telephone encounter Haylee Wilburn MD Work Phone: Hematology Oncology Comment on above: Medication Problem ( [facility] and canceled [facility] for cabzantinib and sent new order to [facility] speciality pharmacy.) Refill Request Start: 10-20-2021 End: 10-21-2021 ambulatory HAYLEE WILBURN Facility:[id number] Start: 10-16-2021 Telephone encounter Kenneth mayorga MD Work Phone: Hematology/Oncology Comment on above: 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 Start: 10-14-2021 Telephone encounter Rahul Knight RN Hematology/Oncology Comment on above: Patient Update Patient Question Start: 10-09-2021 End: 10-10-2021 ambulatory KENNETH CHESTER Facility:[facility] Start: 10-09-2021 End: 10-09-2021 ambulatory Godfrey Ohara APRN.BOOSTER ASSEMBLER Work Phone: Hematology/Oncology Comment on above: Renal cell carcinoma of right kidney (HCC) (Primary Dx); Atrial fibrillation, unspecified type (HCC) Start: 10-09-2021 End: 10-09-2021 Nursing evaluation of patient and report Rahul Knight RN Hematology/Oncology Comment on above: Renal cell carcinoma of right kidney (HCC) (Primary Dx) Start: 10-09-2021 End: 10-09-2021 Patient encounter procedure Godfrey Ohara APRN.BOOSTER ASSEMBLER Work Phone: [facility] Start: 10-06-2021 ambulatory DAKSHA TURNER Fa cility:[facility] Start: 09-29-2021 Patient Outreach Safia martinez [facility] Work Phone: Pharmacy Comment on above: Transition Of Care ( Pharmacy - Hospital Discharge 09/26/21); Heart Failure Follow Up Phone Call (relate care discharge follow up-1st attempt-no contact-left vm) Start: 09-25-2021 End: 09-25-2021 ambulatory DAKSHA TURNER Facility:[facility] Start: 09-25-2021 End: 09-25-2021 Patient encounter procedure Ip Transesophageal Echo Cardiology Comment on above: Paroxysmal atrial fi brillation (HCC) (Primary Dx) Start: 09-22-2021 End: 09-26-2021 Evaluation and management of inpatient [facility] Facility:[facility] Start: 09-22-2021 End: 09-22-2021 ambulatory [facility] Facility:[facility] Start: 09-22-2021 End: 09-22-2021 Patient encounter procedure Chaka George APRN.CNP Work Phone: Cardiology Comment on above: Paroxysmal atrial fi brillation (HCC) (Primary Dx); Mitral valve insufficiency, unspecified etiology; New onset a-fib (HCC); Essential hypertension; Mixed hyperlipidemia; 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) Start: 09-19-2021 Telephone encounter Rahul Knight brick burner/Oncology Comment on above: Patient Question Start: 09-16-2021 Telephone encounter Rahul Knight RN Hematology/Oncology Comment on above: Patient Update Start: 09-11-2021 End: 09-12-2021 ambulatory [facility] Facility:[facility] Start: 09-11-2021 End: 09-11-2021 ambulatory Kenneth Chester [...] encounter procedure Kenneth Chester MD Work Phone: [facility] Start: 09-05-2021 Telephone encounter Kenneth mayorga MD Work Phone: Hematology/Oncology Comment on above: 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 Start: 09-04-2021 End: 09-04-2021 Evaluation and management of inpatient [place] Abdirahman MONTESGOLDEN Facility:[facility] Start: 09-02-2021 End: 09-04-2021 Evaluation and management of inpatient [place] Abdirahman MONTESGOLDEN Facility:[facility] Start: 09-02-2021 End: 09-02-2021 ambulatory [facility] Facility:[facility] Start: 09-02-2021 End: 09-02-2021 Subsequent hospital visit by physician Ct 2 Main Qb (I-Stat) Radiology Comment on above: SOB (shortness of br eath) [R06.02] Start: 09-02-2021 End: 09-03-2021 [facility] Comment on above: SOB (shortness of br eath) (Primary Dx) Start: 09-02-2021 End: 09-02-2021 Patient encounter procedure [facility] ([facility]) Work Phone: [facility] Start: 09-02-2021 Chart abstracting Godfrey Martinez Hematology/Oncology Start: 09-02-2021 End: 09-02-2021 Subsequent hospital visit by physician Xr Main Ca LLD Work Phone: Radiology Comment on above: SOB (shortness of br eath) [R06.02] Start: 09-01-2021 Telephone encounter Adriana glynn MD Work Phone: Urology Comment on above: Results; Patient Upd ate; Lamination Builder - Other Start: 08-27-2021 End: 08-27-2021 Orders Only Godfrey Ohara DECKHAND CLAM [employer]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: Hematology/Oncology Comment on above: Malignant neoplasm o f right kidney, except renal pelvis (HCC) (Primary Dx) Start: 08-20-2021 Orders Only Godfrey Bhardwaj i DECKHAND CLAM DR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: Hematology/Oncology Comment on above: Malignant neoplasm o f right kidney, except renal pelvis (HCC) (Primary Dx); Malignant neoplasm of kidney excluding renal pelvis, unspecified laterality (HCC) Start: 08-19-2021 End: 08-19-2021 ambulatory KENNETH CHESTER Facility:[facility] Start: 08-19-2021 End: 08-19-2021 Nursing evaluation of patient and report Godfrey Clayton RN Hematology/Oncology Comment on above: Renal cell carcinoma , unspecified laterality (HCC) (Primary Dx) Start: 08-19-2021 End: 08-19-2021 Patient encounter procedure Godfrey Ohara APRN.BOOSTER ASSEMBLER Work Phone: [facility] Start: 08-19-2021 End: 08-20-2021 ambulatory Godfrey Ohara APRN.BOOSTER ASSEMBLER Work Phone: Hematology/Oncology Comment on above: Renal cell carcinoma , unspecified laterality (HCC) (Primary Dx); Hypertension, unspecified type Start: 08-19-2021 End: 08-19-2021 Patient encounter procedure Lalo Black MD Work Phone: Cardiology Comment on above: Pedal edema (Primary Dx); Essential hypertension; Coronary artery disease involving jamul coronary artery of jamul heart without angina pectoris; Disturbance in sleep behavior Start: 08-18-2021 ambulatory Godfrey Bhardwaj i, APRN.BOOSTER ASSEMBLER Work Phone: Hematology/Oncology Comment on above: Opened In Error Start: 08-18-2021 Telephone encounter Godfrey Clayton RN Hematology/Oncology Comment on above: Research ([facility] 1820) Start: 08-17-2021 End: 08-17-2021 Emergency department patient visit DAKSHA TURNER Facility:[facility] Start: 08-16-2021 ambulatory Lalo Black MD Work Phone: Cardiology Comment on above: Elevated Blood Press ures Start: 08-13-2021 Telephone encounter Godfrey Clayton RN Hematology/Oncology Comment on above: Research ([facility] 1820) Start: 08-12-2021 Refill Godfrey Bhardwaj i, APRN.CNP Work Phone: Hematology/Oncology Comment on above: Refill Request Start: 08-12-2021 Telephone encounter Lalo mauricio MD Work Phone: Cardiology Comment on above: Blood Pressure Research ([facility] 1819) Start: 08-11-2021 Telephone encounter Hermila Ruiz RN Work Phone: Hematology/Oncology Comment on above: Research ([facility] 1819) Start: 08-08-2021 End: 08-08-2021 ambulatory Lab Port/[facility] Main Ca 1 Work Phone: Hematology/Oncology Comment on above: Malignant neoplasm o f right kidney, except renal pelvis (HCC) Renal cell carcinoma , unspecified laterality (HCC) (Primary Dx) Other specified diso rders of kidney and ureter Start: 08-08-2021 End: 08-09-2021 ambulatory DAKSHA TURNER Facility:[facility] Start: 08-08-2021 End: 08-09-2021 ambulatory Chair 1 Breast Work Phone: Hematology/Oncology Comment on above: Renal cell carcinoma of right kidney (HCC) (Primary Dx) Start: 08-08-2021 End: 08-08-2021 Nursing evaluation of patient and report Godfrey Clayton RN Hematology/Oncology Comment on above: Renal cell carcinoma of right kidney (HCC) (Primary Dx) Start: 08-08-2021 End: 08-08-2021 Patient encounter procedure Godfrey Ohara APRN.BOOSTER ASSEMBLER Work Phone: [facility] Start: 08-06-2021 End: 08-06-2021 ambulatory DAKSHA TURNER Facility:[facility] Start: 08-06-2021 Chart abstracting Godfrey acuña APRN.CNP Work Phone: Hematology/Oncology Start: 08-06-2021 End: 08-07-2021 ambulatory [facility]NETH [facility] Facility:[facility] Start: 08-06-2021 End: 08-06-2021 Subsequent hospital visit by physician Ct Prep Qb Radiology Comment on above: Malignant neoplasm o f kidney, unspecified laterality (HCC) [C64.9] Start: 08-06-2021 End: 08-06-2021 ambulatory Godfrey Ohara APRN.BOOSTER ASSEMBLER Work Phone: Hematology/Oncology Comment on above: Renal cell carcinoma , unspecified laterality (HCC) (Primary Dx); Hypertension, unspecified type Start: 08-06-2021 End: 08-06-2021 Nursing evaluation of patient and report Godfrey Clayton brick burner/Oncology Comment on above: Renal cell carcinoma of right kidney (HCC) (Primary Dx) Start: 08-06-2021 End: 08-06-2021 Patient encounter procedure Godfrey Ohara APRN.BOOSTER ASSEMBLER Work Phone: [facility] Start: 08-05-2021 End: 08-06-2021 ambulatory ATUL FUNG Facility:[facility] Start: 08-03-2021 Telephone encounter Atul Fung MD Work Phone: Cardiology Comment on above: Patient Education Start: 07-31-2021 End: 07-31-2021 [facility] Start: 07-31-2021 End: 07-31-2021 ambulatory [facility] Facility:[facility] Start: 07-31-2021 End: 07-31-2021 Patient encounter procedure Lalo Black MD Work Phone: Cardiology Comment on above: Nonrheumatic mitral valve regurgitation (Primary Dx) Start: 07-30-2021 Telephone encounter Tayler Moss RN Cardiology Comment on above: Patient Education (t ee) Start: 07-29-2021 Telephone encounter Godfrey Clayton brick burner/Oncology Comment on above: Research ([facility] 1820) Start: 07-28-2021 Orders Only Godfrey Bhardwaj i, APRN.BOOSTER ASSEMBLER Work Phone: Hematology/Oncology Comment on above: Malignant neoplasm o f right kidney, except renal pelvis (HCC) (Primary Dx); Malignant neoplasm of kidney excluding renal pelvis, unspecified laterality (HCC) Start: 07-25-2021 Chart abstracting Rahul ([facility] Roberto Bennett Work Phone: Hematology/Oncology Start: 07-25-2021 Telephone encounter Godfrey Clayton brick burner/Oncology Comment on above: Research ([facility] 1819) Start: 07-24-2021 Telephone encounter Godfrey nixon APRN.BOOSTER ASSEMBLER Work Phone: Hematology/Oncology Comment on above: Results Start: 07-24-2021 End: 07-24-2021 [facility] Start: 07-24-2021 End: 07-25-2021 ambulatory Godfrey Ohara APRN.BOOSTER ASSEMBLER Work Phone: Hematology/Oncology Comment on above: Malignant neoplasm o f kidney excluding renal pelvis, unspecified laterality (HCC) (Primary Dx); Metastatic renal cell carcinoma, unspecified laterality (HCC) Start: 07-24-2021 End: 07-24-2021 Nursing evaluation of patient and report Godfrey Clayton RN Hematology/Oncology Comment on above: Renal cell carcinoma of right kidney (HCC) (Primary Dx) Start: 07-24-2021 End: 07-24-2021 Patient encounter procedure Godfrey Ohara APRN.BOOSTER ASSEMBLER Work Phone: [facility] Start: 07-23-2021 Telephone encounter Godfrey Clayton RN Hematology/Oncology Comment on above: Research ([facility] 1819) Start: 07-22-2021 End: 07-22-2021 ambulatory Lalo Black MD Work Phone: Cardiology Comment on above: Nonrheumatic mitral valve regurgitation (Primary Dx); Cardiomyopathy, nonischemic (HCC) Start: 07-22-2021 End: 07-22-2021 Telemedicine consultation with patient Lalo Black MD Work Phone: [facility] Start: 07-21-2021 Chart abstracting Godfrey aucña APRN.BOOSTER ASSEMBLER Work Phone: Hematology/Oncology Start: 07-21-2021 Telephone encounter Financial Navigator Cullen Work Phone: Hematology/Oncology Comment on above: Benefits Investigati on Start: 07-21-2021 End: 07-21-2021 Nursing evaluation of patient and report Godfrey Clayton brick burner/Oncology Comment on above: Malignant neoplasm o f [...] Start: 07-17-2021 End: 07-17-2021 Patient encounter procedure [facility] Start: 07-15-2021 End: 07-15-2021 ambulatory [facility] Facility:[facility] Start: 07-14-2021 End: 07-15-2021 Orders Only Godfrey Ohara APRN.BOOSTER ASSEMBLER Work Phone: Hematology/Oncology Comment on above: Malignant neoplasm o f kidney excluding renal pelvis, unspecified laterality (HCC) (Primary Dx); Renal cell carcinoma, unspecified laterality (HCC) Malignant neoplasm o f right kidney, except renal pelvis (HCC) (Primary Dx) Anxiety (Primary Dx) Start: 07-11-2021 Telephone encounter Godfrey Clayton RN Hematology/Oncology Comment on above: Research ([facility] 1820) Malignant neoplasm o f right kidney, except renal pelvis (HCC) (Primary Dx); Malignant neoplasm of kidney excluding renal pelvis, unspecified laterality (HCC) Start: 07-08-2021 End: 07-08-2021 ambulatory [facility] Facility:[facility] Start: 07-08-2021 End: 07-08-2021 Nursing evaluation of patient and report Godfrey Clayton RN Hematology/Oncology Comment on above: Malignant neoplasm o f kidney excluding renal pelvis, unspecified laterality (HCC) (Primary Dx) Start: 07-07-2021 Telephone encounter Godfrey Clayton RN Hematology/Oncology Comment on above: Research ([facility] 1820) Start: 07-02-2021 End: 07-02-2021 ambulatory Kenneth Chester MD Work Phone: Hematology/Oncology Comment on above: Malignant neoplasm o f kidney, unspecified laterality (HCC); Malignant neoplasm of kidney excluding renal pelvis, unspecified laterality (HCC); Chest wall mass Start: 07-02-2021 End: 07-02-2021 Patient encounter procedure Kenneth Chester MD Work Phone: [facility] Start: 07-01-2021 End: 07-01-2021 ambulatory ANNE-MARIE CHAPARRO Facility:[facility] Start: 06-30-2021 End: 07-01-2021 ambulatory JOHN GTZ Facility:[facility] Start: 06-30-2021 End: 06-30-2021 Subsequent hospital visit by physician [facility] Comment on above: Malignant neoplasm o f kidney, unspecified laterality (HCC) [C64.9] Start: 06-30-2021 End: 06-30-2021 ambulatory ADRIANA HODGE Facility:[facility] Start: 06-30-2021 End: 06-30-2021 Subsequent hospital visit by physician [facility] Start: 06-27-2021 End: 06-27-2021 ambulatory ADRIANA HODGE Facility:[facility] Start: 06-27-2021 End: 06-27-2021 Subsequent hospital visit [...] 06-20-2021 End: 06-20-2021 ambulatory DAWIT URBINA MD Facility:[facility] Start: 06-19-2021 End: 06-19-2021 Emergency department patient visit Family Physician Unavailable Facility:[facility] Start: 06-19-2021 End: 06-19-2021 Emergency department patient visit Family Unavailable [facility] Start: 06-30-2004 End: 11-26-2014 Patient encounter status Ekg/[facility] Work Phone: [facility] Procedures Date Procedure Procedure Detail Performing Clinician [...] above: Performed By: #### T +S #### [address] [address] Start: 01-29-2022 Plain chest X-ray Dr. Tangela Turner Work Phone: Start: 01-27-[address] JULIENNE HERNANDEZ Comment on above: Performed By: #### C BC #### [address] [address] Start: 01-20-2022 Plain chest X-ray Dr. Tangela [...] Comment: Speci men Type: BLOOD SPECIMENOrdering Facility: [facility] Address: [address] [place] [address] [place] [address] Performed By: #### T [id number] ####CC MAIN BLOOD BANKCLIA [id number] [place]SON [id number] [address] [place] Start: 10-20-2021 Adult [...] Detail Author Start: 07-25-2028 Urine microalbumin profile [facility] Start: 09-23-2026 Lipid panel Lipid Screening [facility] Start: 09-23-2026 LIPID SCREEN LIPID SCREEN [facility] Start: 04-09-2025 DIABETES SCREEN DIABETES SCREEN [facility] Start: 04-09-2025 Diabetes Screening Diabetes Screenin g [facility] Start: 02-17-2025 DIABETES SCREEN DIABETES SCREEN [facility] Start: 11-13-2024 ambulatory Ambulatory Facility:[facility] Start: 11-05-2024 LIPID SCREEN LIPID SCREEN [facility] Start: 11-05-2024 PROSTATE CANCER SCRE ENING DISCUSSION PROSTATE CANCER SCREENING DISCUSSION [facility] Start: 11-05-2024 Prostate specific an tigen measurement Prostate Cancer Screening Discussion [facility] Start: 10-27-2024 DIABETES SCREEN DIABETES SCREEN [facility] Start: 10-09-2024 DIABETES SCREEN DIABETES SCREEN [facility] Start: 09-26-2024 DIABETES SCREEN DIABETES SCREEN [facility] Start: 09-11-2024 DIABETES SCREEN DIABETES SCREEN [facility] Start: 09-03-2024 DIABETES SCREEN DIABETES SCREEN [facility] Start: 09-02-2024 DIABETES SCREEN DIABETES SCREEN [facility] Start: 08-19-2024 DIABETES SCREEN DIABETES SCREEN [facility] Start: 08-17-2024 DIABETES SCREEN DIABETES SCREEN [facility] Start: 08-14-2024 Evaluation of diagno stic study results [facility] Start: 08-08-2024 DIABETES SCREEN DIABETES SCREEN [facility] Start: 08-06-2024 DIABETES SCREEN DIABETES SCREEN [facility] Start: 07-24-2024 DIABETES SCREEN DIABETES SCREEN [facility] Start: 07-21-2024 DIABETES SCREEN DIABETES SCREEN [facility] Start: 06-20-2024 DIABETES SCREEN DIABETES SCREEN [facility] Start: 11-07-2023 Covid-19 Vaccine () Covid-19 Vaccine () [facility] Start: 11-07-2023 Influenza vaccination Influenza Vacc ine (#1) [facility] Start: 02-16-2023 BP CONTROLLED (<130/80) BP CON TROLLED (<130/80) [facility] Start: 12-17-2022 Patient discharge [facility] Start: 12-16-2022 Admission procedure [facility] Start: 12-15-2022 End: 12-16-2022 [facility] Start: 12-15-2022 Continuous positive airway pressure ventilation treatment [facility] Start: 12-15-2022 Ambulation without limitation [facility] Start: 12-15-2022 Assessment of risk o f venous thromboembolism [facility] Start: 12-15-2022 Fluid restriction [facility] Start: 12-15-2022 Insertion of cathete r into peripheral vein [facility] Start: 12-15-2022 Measuring intake and output [facility] Start: 12-15-2022 Oxygen therapy [facility] Start: 12-15-2022 Providing care accor ding to standard [facility] Start: 12-15-2022 Referral to service [facility] Start: 12-15-2022 Admission procedure [facility] Start: 12-15-2022 Following clinical p athway protocol [facility] Start: 12-15-2022 Transfusion of blood product [facility] Start: 12-15-2022 Patient referral to dietitian [facility] Start: 10-20-2022 Adult depression scr eening assessment DEPRESSION SCREENING [facility] Start: 09-23-2022 BP CONTROLLED (<130/80) BP CON TROLLED (<130/80) [facility] Start: 09-23-2022 Hepatitis B surface antibody level LDL CHOLESTEROL [facility] Start: 07-06-2022 [facility]UV, Provider: Aravind Hernandez, Status: Pen, Time: 1:40 PM [facility], Provider: Aravind Hernandez, Status: Pen, Time: 1:40 PM [id number] SJW 400 DO Work Phone: Start: 06-29-2022 Patient discharge [facility] Start: 06-28-2022 Following clinical p athway protocol [facility] Start: 06-28-2022 Assessment of risk o f venous thromboembolism [facility] Start: 06-28-2022 Continuous positive airway pressure ventilation treatment [facility] Start: 06-28-2022 Inhalation therapy procedure [facility] Start: 06-28-2022 Insertion of cathete r into peripheral vein [facility] Start: 06-28-2022 Introduction of urin rebecca catheter [facility] Start: 06-28-2022 Measuring intake and output [facility] Start: 06-28-2022 Oxygen therapy [facility] Start: 06-28-2022 End: 06-28-2022 Patient referral to dietitian [facility] Start: 06-28-2022 Providing care accor ding to standard [facility] Start: 06-28-2022 Provision of activit y privileges [facility] Start: 06-28-2022 Referral to service [facility] Start: 06-28-2022 End: 06-28-2022 [facility] Start: 06-28-2022 Verification routine [facility] Start: 06-28-2022 Admission procedure [facility] Start: 06-27-2022 Troponin I measurement [facility] Start: 06-27-2022 [facility] Start: 06-20-2022 ANNUAL PCP TEAM DIPLOMATIC INTERPRETER SEFERINO DISEASE VISIT ANNUAL PCP TEAM CHRONIC DISEASE VISIT [facility] Start: 05-27-2022 Patient referral [facility] Work Phone: Start: 05-20-2022 Patient discharge [facility] Start: 05-19-2022 Continuous positive airway pressure ventilation treatment [facility] Start: 05-18-2022 Dual pressure sponta neous ventilation support [facility] Start: 05-18-2022 Following clinical p athway protocol [facility] Start: 05-18-2022 Assessment of risk o f venous thromboembolism [facility] Start: 05-18-2022 Continuous pulse oximetry [facility] Start: 05-18-2022 Insertion of cathete r into peripheral vein [facility] Start: 05-18-2022 Measuring intake and output [facility] Start: 05-18-2022 Oxygen therapy [facility] Start: 05-18-2022 Providing care accor ding to standard [facility] Start: 05-18-2022 Provision of activit y privileges [facility] Start: 05-18-2022 [facility] Start: 05-18-2022 Verification routine [facility] Start: 05-18-2022 Admission procedure [facility] Start: 05-18-2022 [facility] Start: 05-18-2022 Patient referral to dietitian [facility] Start: 04-17-2022 Prothrombin time [facility] Start: 04-16-2022 Patient discharge [facility] Start: 04-16-2022 Prothrombin time [facility] Start: 04-16-2022 Oxygen therapy [facility] Start: 04-15-2022 [facility] Start: 04-15-2022 Prothrombin time [facility] Start: 04-14-2022 Continuous pulse oximetry [facility] Start: 04-14-2022 [facility] Start: 04-14-2022 Application of intermittent pneumatic compression device [facility] Start: 04-14-2022 Following clinical p athway protocol [facility] Start: 04-14-2022 Chemotherapy care management [facility] Start: 04-14-2022 Elevation of affecte d extremity [facility] Start: 04-14-2022 Fluid restriction [facility] Start: 04-14-2022 Notification of physician [facility] Start: 04-14-2022 Patient education [facility] Start: 04-14-2022 End: 04-14-2022 [facility] Start: 04-14-2022 Continuous positive airway pressure ventilation treatment [facility] Start: 04-13-2022 Admission procedure [facility] Start: 03-25-2022 End: 05-25-2022 CBC W Auto Differential panel - Blood CBC + DIFF Lab Routine Renal cell carcinoma of right kidney (HCC) Expected: 03/25/2022, Expires: 05/25/2022 [facility] Work Phone: Comment on above: Expected: 03/25/2022 , Expires: 05/25/2022 Start: 03-25-2022 End: 05-25-2022 Comprehensive metabolic 2000 panel - Serum or Plasma COMP METABOLIC PANEL Lab Routine Renal cell carcinoma of right kidney (HCC) Expected: 03/25/2022, Expires: 05/25/2022 [facility] Work Phone: Comment on above: Expected: 03/25/2022 , Expires: 05/25/2022 Start: 03-25-2022 End: 05-25-2022 Thyrotropin [Units/volume] in Serum or Plasma TSH BLD Lab Routine Renal cell carcinoma of right kidney (HCC) Expected: 03/25/2022, Expires: 05/25/2022 [facility] Work Phone: Comment on above: Expected: 03/25/2022 , Expires: 05/25/2022 Start: 03-08-2022 DEPRESSION ASSESSMENT DEPRESSION ASS ESSMENT [facility] Start: 02-16-2022 End: 04-18-2022 Basic metabolic 2000 panel - Serum or Plasma BASIC METABOLIC PNL Lab Routine Acute decompensated heart failure (HCC) Paroxysmal atrial fibrillation (HCC) Expected: 02/16/2022, Expires: 04/18/2022 [facility] Work Phone: Comment on above: Expected: 02/16/2022 , Expires: 04/18/2022 Start: 02-08-2022 End: 02-09-2023 Bisacodyl Rectal 10 mg Suppository Daily PRN ; Suppository (DULCOLAX)DOSE = 10 mg Rectal Daily, PRN Constipation Start: 08-Feb-2022 End: 08-Feb-2023 Ordered: 08-Feb-2022 Deep Tamez [facility] Start: 02-06-2022 End: 02-07-2023 [facility] Comment on above: Minimize narcotics May be [...] reaches 100 mg/dL or greater. Start: 02-06-2022 [facility], Provider: Aravind Hernandez, Status: Pen, Time: 9:30 AM [facility], Provider: Aravind Hernandez, Status: Pen, Time: 9:30 AM [id number] SJW 400 DO Work Phone: Start: 01-29-2022 Chemotherapy care management [facility] Start: 01-20-2022 Plain chest X-ray Chest 1 View (Portable) [facility] Work Phone: Start: 01-20-2022 XR Chest Single view [facility] Work Phone: Start: 12-30-2021 End: 03-01-2022 aPTT in Platelet poor plasma by Coagulation assay ACTIVATED PTT Lab Routine Renal cell carcinoma of right kidney (HCC) Expected: 12/30/2021 (Approximate), Expires: 03/01/2022 [facility] Work Phone: Comment on above: Expected: 12/30/2021 (Approximate), Expires: 03/01/2022 Start: 12-30-2021 End: 03-01-2022 CBC panel - Blood by Automated count CBC Lab Routine Renal cell carcinoma of right kidney (HCC) Expected: 12/30/2021 (Approximate), Expires: 03/01/2022 [facility] Work Phone: Comment on above: Expected: 12/30/2021 (Approximate), Expires: 03/01/2022 Start: 12-30-2021 End: 03-01-2022 Comprehensive metabolic 2000 panel - Serum or Plasma COMP METABOLIC PANEL Lab Routine Renal cell carcinoma of right kidney (HCC) Expected: 12/30/2021 (Approximate), Expires: 03/01/2022 [facility] Work Phone: Comment on above: Expected: 12/30/2021 (Approximate), Expires: 03/01/2022 Start: 12-30-2021 End: 03-01-2022 CONFIRM BLOOD TYPE CONFIRM BLOOD TYPE Blood Bank Routine Renal cell carcinoma of right kidney (HCC) Expected: 12/30/2021 (Approximate), Expires: 03/01/2022 [facility] Work Phone: Comment on above: Expected: 12/30/2021 (Approximate), Expires: 03/01/2022 Start: 12-30-2021 End: 03-01-2022 PT panel - Platelet poor plasma by Coagulation assay PROTHROMBIN TIME/PT Lab Routine Renal cell carcinoma of right kidney (HCC) Expected: 12/30/2021 (Approximate), Expires: 03/01/2022 [facility] Work Phone: Comment on above: Expected: 12/30/2021 (Approximate), Expires: 03/01/2022 Start: 12-30-2021 End: 12-30-2022 SARS-CoV-2 (COVID-19) RNA [Presence] in Respiratory specimen by [facility] with probe detection PRE-PROCEDURE & PRE-OPERATIVE COVID Microbiology Routine Renal cell carcinoma of right kidney (HCC) Expected: 12/30/2021, Expires: 12/30/2022 [facility] Work Phone: Comment on above: Expected: 12/30/2021 , Expires: 12/30/2022 Start: 12-30-2021 End: 03-01-2022 TYPE AND SCREEN,30 DAY TYPE AND SCREEN,30 DAY Blood Bank Routine Renal cell carcinoma of right kidney (HCC) Expected: 12/30/2021 (Approximate), Expires: 03/01/2022 [facility] Work Phone: Comment on above: Expected: 12/30/2021 (Approximate), Expires: 03/01/2022 Start: 12-09-2021 Patient discharge [facility] Work Phone: Start: 12-08-2021 Inhalation therapy procedure [facility] Work Phone: Start: 12-07-2021 Chemotherapy care management [facility] Work Phone: Start: 12-07-2021 Ambulation without limitation [facility] Work Phone: Start: 12-07-2021 Assessment of risk o f venous thromboembolism [facility] Work Phone: Start: 12-07-2021 Catheterization of vein [facility] Work Phone: Start: 12-07-2021 Insertion of cathete r into peripheral vein [facility] Work Phone: Start: 12-07-2021 Measuring intake and output [facility] Work Phone: Start: 12-07-2021 Providing care accor ding to standard [facility] Work Phone: Start: 12-07-2021 [facility] Work Phone: Start: 12-07-2021 Verification routine [facility] Work Phone: Start: 12-07-2021 Admission procedure [facility] Work Phone: Start: 12-07-2021 Following clinical p athway protocol [facility] Work Phone: Start: 12-07-2021 Troponin I measurement [facility] Work Phone: Start: 12-06-2021 Influenza vaccination Influenza Vacc ine (#1) [facility] Start: 11-06-2021 Influenza vaccination [facility] Start: 10-16-2021 End: 10-17-2021 aPTT in Platelet poor plasma by Coagulation assay ACTIVATED PTT Lab STAT Malignant neoplasm of right kidney, except renal pelvis (HCC) Expected: 10/16/2021, Expires: 10/17/2021 [facility] Work Phone: Comment on above: Expected: 10/16/2021 , Expires: 10/17/2021 Start: 10-16-2021 End: 10-17-2021 CBC W Auto Differential panel - Blood CBC + DIFF Lab STAT Malignant neoplasm of right kidney, except renal pelvis (HCC) Expected: 10/16/2021, Expires: 10/17/2021 [facility] Work Phone: Comment on above: Expected: 10/16/2021 , Expires: 10/17/2021 Start: 10-16-2021 End: 10-17-2021 Comprehensive metabolic 2000 panel - Serum or Plasma COMP METABOLIC PANEL Lab STAT Malignant neoplasm of right kidney, except renal pelvis (HCC) Expected: 10/16/2021, Expires: 10/17/2021 [facility] Work Phone: Comment on above: Expected: 10/16/2021 , Expires: 10/17/2021 Start: 10-16-2021 End: 09-26-2022 Ct abdomen & pelvis w/contrast material CT ABD/PEL W IVCON Radiology Routine Malignant neoplasm of right kidney, except renal pelvis (HCC) Expected: 10/16/2021, Expires: 09/26/2022 [facility] Work Phone: Comment on above: Expected: 10/16/2021 , Expires: 09/26/2022 Start: 10-16-2021 End: 09-26-2022 Ct thorax w/contrast material CT CHEST W IVCON Radiology Routine Malignant neoplasm of right kidney, except renal pelvis (HCC) Expected: 10/16/2021, Expires: 09/26/2022 [facility] Work Phone: Comment on above: Expected: 10/16/2021 , Expires: 09/26/2022 Start: 10-16-2021 End: 10-17-2021 Lactate dehydrogenase [Enzymatic activity/volume] in Serum or Plasma LD LACTATE DEHYDRO Lab STAT Malignant neoplasm of right kidney, except renal pelvis (HCC) Expected: 10/16/2021, Expires: 10/17/2021 [facility] Work Phone: Comment on above: Expected: 10/16/2021 , Expires: 10/17/2021 Start: 10-16-2021 End: 10-17-2021 Magnesium [Mass/volume] in Serum or Plasma MAGNESIUM BLD Lab STAT Malignant neoplasm of right kidney, except renal pelvis (HCC) Expected: 10/16/2021, Expires: 10/17/2021 [facility] Work Phone: Comment on above: Expected: 10/16/2021 , Expires: 10/17/2021 Start: 10-16-2021 End: 10-17-2021 Phosphate [Mass/volume] in Serum or Plasma PHOSPHORUS INORGANIC Lab STAT Malignant neoplasm of right kidney, except renal pelvis (HCC) Expected: 10/16/2021, Expires: 10/17/2021 [facility] Work Phone: Comment on above: Expected: 10/16/2021 , Expires: 10/17/2021 Start: 10-16-2021 End: 10-17-2021 PT panel - Platelet poor plasma by Coagulation assay PROTHROMBIN TIME/PT Lab STAT Malignant neoplasm of right kidney, except renal pelvis (HCC) Expected: 10/16/2021, Expires: 10/17/2021 [facility] Work Phone: Comment on above: Expected: 10/16/2021 , Expires: 10/17/2021 Start: 10-16-2021 End: 10-17-2021 Urate [Mass/volume] in Serum or Plasma URIC ACID BLOOD Lab STAT Malignant neoplasm of right kidney, except renal pelvis (HCC) Expected: 10/16/2021, Expires: 10/17/2021 [facility] Work Phone: Comment on above: Expected: 10/16/2021 , Expires: 10/17/2021 Start: 10-02-2021 End: 10-03-2021 aPTT in Platelet poor plasma by Coagulation assay ACTIVATED PTT Lab STAT Malignant neoplasm of right kidney, except renal pelvis (HCC) Expected: 10/02/2021, Expires: 10/03/2021 [facility] Work Phone: Comment on above: Expected: 10/02/2021 , Expires: 10/03/2021 Start: 10-02-2021 End: 10-03-2021 CBC W Auto Differential panel - Blood CBC + DIFF Lab STAT Malignant neoplasm of right kidney, except renal pelvis (HCC) Expected: 10/02/2021, Expires: 10/03/2021 [facility] Work Phone: Comment on above: Expected: 10/02/2021 , Expires: 10/03/2021 Start: 10-02-2021 End: 10-03-2021 CLINICAL TRIAL DRAW CLINICAL TRIAL DRAW Lab STAT Malignant neoplasm of right kidney, except renal pelvis (HCC) Expected: 10/02/2021, Expires: 10/03/2021 [facility] Work Phone: Comment on above: Expected: 10/02/2021 , Expires: 10/03/2021 Start: 10-02-2021 End: 10-03-2021 Comprehensive metabolic 2000 panel - Serum or Plasma COMP METABOLIC PANEL Lab STAT Malignant neoplasm of right kidney, except renal pelvis (HCC) Expected: 10/02/2021, Expires: 10/03/2021 [facility] Work Phone: Comment on above: Expected: 10/02/2021 , Expires: 10/03/2021 Start: 10-02-2021 End: 10-03-2021 Lactate dehydrogenase [Enzymatic activity/volume] in Serum or Plasma LD LACTATE DEHYDRO Lab STAT Malignant neoplasm of right kidney, except renal pelvis (HCC) Expected: 10/02/2021, Expires: 10/03/2021 [facility] Work Phone: Comment on above: Expected: 10/02/2021 , Expires: 10/03/2021 Start: 10-02-2021 End: 10-03-2021 Magnesium [Mass/volume] in Serum or Plasma MAGNESIUM BLD Lab STAT Malignant neoplasm of right kidney, except renal pelvis (HCC) Expected: 10/02/2021, Expires: 10/03/2021 [facility] Work Phone: Comment on above: Expected: 10/02/2021 , Expires: 10/03/2021 Start: 10-02-2021 End: 10-03-2021 Phosphate [Mass/volume] in Serum or Plasma PHOSPHORUS INORGANIC Lab STAT Malignant neoplasm of right kidney, except renal pelvis (HCC) Expected: 10/02/2021, Expires: 10/03/2021 [facility] Work Phone: Comment on above: Expected: 10/02/2021 , Expires: 10/03/2021 Start: 10-02-2021 End: 10-03-2021 PT panel - Platelet poor plasma by Coagulation assay PROTHROMBIN TIME/PT Lab STAT Malignant neoplasm of right kidney, except renal pelvis (HCC) Expected: 10/02/2021, Expires: 10/03/2021 [facility] Work Phone: Comment on above: Expected: 10/02/2021 , Expires: 10/03/2021 Start: 10-02-2021 End: 10-03-2021 Thyrotropin [Units/volume] in Serum or Plasma TSH BLD Lab STAT Malignant neoplasm of right kidney, except renal pelvis (HCC) Expected: 10/02/2021, Expires: 10/03/2021 [facility] Work Phone: Comment on above: Expected: 10/02/2021 , Expires: 10/03/2021 Start: 10-02-2021 End: 10-03-2021 Thyroxine (T4) free [Mass/volume] in Serum or Plasma T4 FREE/FREE THYROX Lab STAT Malignant neoplasm of right kidney, except renal pelvis (HCC) Expected: 10/02/2021, Expires: 10/03/2021 [facility] Work Phone: Comment on above: Expected: 10/02/2021 , Expires: 10/03/2021 Start: 10-02-2021 End: 10-03-2021 Triiodothyronine (T3) Free [Mass/volume] in Serum or Plasma T3 FREE BLD Lab STAT Malignant neoplasm of right kidney, except renal pelvis (HCC) Expected: 10/02/2021, Expires: 10/03/2021 [facility] Work Phone: Comment on above: Expected: 10/02/2021 , Expires: 10/03/2021 Start: 10-02-2021 End: 10-03-2021 Urate [Mass/volume] in Serum or Plasma URIC ACID BLOOD Lab STAT Malignant neoplasm of right kidney, except renal pelvis (HCC) Expected: 10/02/2021, Expires: 10/03/2021 [facility] Work Phone: Comment on above: Expected: 10/02/2021 , Expires: 10/03/2021 Start: 08-19-2021 End: 08-20-2021 aPTT in Platelet poor plasma by Coagulation assay ACTIVATED PTT Lab STAT Malignant neoplasm of right kidney, except renal pelvis (HCC) Expected: 08/19/2021, Expires: 08/20/2021 [facility] Work Phone: Comment on above: Expected: 08/19/2021 , Expires: 08/20/2021 Start: 08-19-2021 End: 08-20-2021 CBC W Auto Differential panel - Blood CBC + DIFF Lab STAT Malignant neoplasm of right kidney, except renal pelvis (HCC) Expected: 08/19/2021, Expires: 08/20/2021 [facility] Work Phone: Comment on above: Expected: 08/19/2021 , Expires: 08/20/2021 Start: 08-19-2021 End: 08-20-2021 Comprehensive metabolic 2000 panel - Serum or Plasma COMP METABOLIC PANEL Lab STAT Malignant neoplasm of right kidney, except renal pelvis (HCC) Expected: 08/19/2021, Expires: 08/20/2021 [facility] Work Phone: Comment on above: Expected: 08/19/2021 , Expires: 08/20/2021 Start: 08-19-2021 End: 08-20-2021 Lactate dehydrogenase [Enzymatic activity/volume] in Serum or Plasma LD LACTATE DEHYDRO Lab STAT Malignant neoplasm of right kidney, except renal pelvis (HCC) Expected: 08/19/2021, Expires: 08/20/2021 [facility] Work Phone: Comment on above: Expected: 08/19/2021 , Expires: 08/20/2021 Start: 08-19-2021 End: 08-20-2021 Magnesium [Mass/volume] in Serum or Plasma MAGNESIUM BLD Lab STAT Malignant neoplasm of right kidney, except renal pelvis (HCC) Expected: 08/19/2021, Expires: 08/20/2021 [facility] Work Phone: Comment on above: Expected: 08/19/2021 , Expires: 08/20/2021 Start: 08-19-2021 End: 08-20-2021 Phosphate [Mass/volume] in Serum or Plasma PHOSPHORUS INORGANIC Lab STAT Malignant neoplasm of right kidney, except renal pelvis (HCC) Expected: 08/19/2021, Expires: 08/20/2021 [facility] Work Phone: Comment on above: Expected: 08/19/2021 , Expires: 08/20/2021 Start: 08-19-2021 End: 08-20-2021 PT panel - Platelet poor plasma by Coagulation assay PROTHROMBIN TIME/PT Lab STAT Malignant neoplasm of right kidney, except renal pelvis (HCC) Expected: 08/19/2021, Expires: 08/20/2021 [facility] Work Phone: Comment on above: Expected: 08/19/2021 , Expires: 08/20/2021 Start: 08-19-2021 End: 08-20-2021 Urate [Mass/volume] in Serum or Plasma URIC ACID BLOOD Lab STAT Malignant neoplasm of right kidney, except renal pelvis (HCC) Expected: 08/19/2021, Expires: 08/20/2021 [facility] Work Phone: Comment on above: Expected: 08/19/2021 , Expires: 08/20/2021 Start: 08-07-2021 End: 08-08-2021 aPTT in Platelet poor plasma by Coagulation assay ACTIVATED PTT Lab STAT Malignant neoplasm of right kidney, except renal pelvis (HCC) Expected: 08/07/2021, Expires: 08/08/2021 [facility] Work Phone: Comment on above: Expected: 08/07/2021 , Expires: 08/08/2021 Start: 08-07-2021 End: 08-08-2021 CBC W Auto Differential panel - Blood CBC + DIFF Lab STAT Malignant neoplasm of right kidney, except renal pelvis (HCC) Expected: 08/07/2021, Expires: 08/08/2021 [facility] Work Phone: Comment on above: Expected: 08/07/2021 , Expires: 08/08/2021 Start: 08-07-2021 End: 08-08-2021 CLINICAL TRIAL DRAW CLINICAL TRIAL DRAW Lab STAT Malignant neoplasm of right kidney, except renal pelvis (HCC) Expected: 08/07/2021, Expires: 08/08/2021 [facility] Work Phone: Comment on above: Expected: 08/07/2021 , Expires: 08/08/2021 Start: 08-07-2021 End: 08-08-2021 Comprehensive metabolic 2000 panel - Serum or Plasma COMP METABOLIC PANEL Lab STAT Malignant neoplasm of right kidney, except renal pelvis (HCC) Expected: 08/07/2021, Expires: 08/08/2021 [facility] Work Phone: Comment on above: Expected: 08/07/2021 , Expires: 08/08/2021 Start: 08-07-2021 End: 08-08-2021 Lactate dehydrogenase [Enzymatic activity/volume] in Serum or Plasma LD LACTATE DEHYDRO Lab STAT Malignant neoplasm of right kidney, except renal pelvis (HCC) Expected: 08/07/2021, Expires: 08/08/2021 [facility] Work Phone: Comment on above: Expected: 08/07/2021 , Expires: 08/08/2021 Start: 08-07-2021 End: 08-08-2021 Magnesium [Mass/volume] in Serum or Plasma MAGNESIUM BLD Lab STAT Malignant neoplasm of right kidney, except renal pelvis (HCC) Expected: 08/07/2021, Expires: 08/08/2021 [facility] Work Phone: Comment on above: Expected: 08/07/2021 , Expires: 08/08/2021 Start: 08-07-2021 End: 08-08-2021 Phosphate [Mass/volume] in Serum or Plasma PHOSPHORUS INORGANIC Lab STAT Malignant neoplasm of right kidney, except renal pelvis (HCC) Expected: 08/07/2021, Expires: 08/08/2021 [facility] Work Phone: Comment on above: Expected: 08/07/2021 , Expires: 08/08/2021 Start: 08-07-2021 End: 08-08-2021 PT panel - Platelet poor plasma by Coagulation assay PROTHROMBIN TIME/PT Lab STAT Malignant neoplasm of right kidney, except renal pelvis (HCC) Expected: 08/07/2021, Expires: 08/08/2021 [facility] Work Phone: Comment on above: Expected: 08/07/2021 , Expires: 08/08/2021 Start: 08-07-2021 End: 08-08-2021 Urate [Mass/volume] in Serum or Plasma URIC ACID BLOOD Lab STAT Malignant neoplasm of right kidney, except renal pelvis (HCC) Expected: 08/07/2021, Expires: 08/08/2021 [facility] Work Phone: Comment on above: Expected: 08/07/2021 , Expires: 08/08/2021 Start: 08-05-2021 End: 08-06-2021 aPTT in Platelet poor plasma by Coagulation assay ACTIVATED PTT Lab STAT Malignant neoplasm of right kidney, except renal pelvis (HCC) Expected: 08/05/2021, Expires: 08/06/2021 [facility] Work Phone: Comment on above: Expected: 08/05/2021 , Expires: 08/06/2021 Start: 08-05-2021 End: 08-06-2021 CBC W Auto Differential panel - Blood CBC + DIFF Lab STAT Malignant neoplasm of right kidney, except renal pelvis (HCC) Expected: 08/05/2021, Expires: 08/06/2021 [facility] Work Phone: Comment on above: Expected: 08/05/2021 , Expires: 08/06/2021 Start: 08-05-2021 End: 08-06-2021 Comprehensive metabolic 2000 panel - Serum or Plasma COMP METABOLIC PANEL Lab STAT Malignant neoplasm of right kidney, except renal pelvis (HCC) Expected: 08/05/2021, Expires: 08/06/2021 [facility] Work Phone: Comment on above: Expected: 08/05/2021 , Expires: 08/06/2021 Start: 08-05-2021 End: 08-06-2021 Lactate dehydrogenase [Enzymatic activity/volume] in Serum or Plasma LD LACTATE DEHYDRO Lab STAT Malignant neoplasm of right kidney, except renal pelvis (HCC) Expected: 08/05/2021, Expires: 08/06/2021 [facility] Work Phone: Comment on above: Expected: 08/05/2021 , Expires: 08/06/2021 Start: 08-05-2021 End: 08-06-2021 Magnesium [Mass/volume] in Serum or Plasma MAGNESIUM BLD Lab STAT Malignant neoplasm of right kidney, except renal pelvis (HCC) Expected: 08/05/2021, Expires: 08/06/2021 [facility] Work Phone: Comment on above: Expected: 08/05/2021 , Expires: 08/06/2021 Start: 08-05-2021 End: 08-06-2021 Phosphate [Mass/volume] in Serum or Plasma PHOSPHORUS INORGANIC Lab STAT Malignant neoplasm of right kidney, except renal pelvis (HCC) Expected: 08/05/2021, Expires: 08/06/2021 [facility] Work Phone: Comment on above: Expected: 08/05/2021 , Expires: 08/06/2021 Start: 08-05-2021 End: 08-06-2021 PT panel - Platelet poor plasma by Coagulation assay PROTHROMBIN TIME/PT Lab STAT Malignant neoplasm of right kidney, except renal pelvis (HCC) Expected: 08/05/2021, Expires: 08/06/2021 [facility] Work Phone: Comment on above: Expected: 08/05/2021 , Expires: 08/06/2021 Start: 08-05-2021 End: 08-06-2021 T3 FREE BLD T3 FREE BLD Lab STAT Malignant neoplasm of right kidney, except renal pelvis (HCC) Expected: 08/05/2021, Expires: 08/06/2021 [facility] Work Phone: Comment on above: Expected: 08/05/2021 , Expires: 08/06/2021 Start: 08-05-2021 End: 08-06-2021 T4 FREE/FREE THYROX T4 FREE/FREE THYROX Lab STAT Malignant neoplasm of right kidney, except renal pelvis (HCC) Expected: 08/05/2021, Expires: 08/06/2021 [facility] Work Phone: Comment on above: Expected: 08/05/2021 , Expires: 08/06/2021 Start: 08-05-2021 End: 08-06-2021 Thyrotropin [Units/volume] in Serum or Plasma TSH BLD Lab STAT Malignant neoplasm of right kidney, except renal pelvis (HCC) Expected: 08/05/2021, Expires: 08/06/2021 [facility] Work Phone: Comment on above: Expected: 08/05/2021 , Expires: 08/06/2021 Start: 08-05-2021 End: 08-06-2021 Urate [Mass/volume] in Serum or Plasma URIC ACID BLOOD Lab STAT Malignant neoplasm of right kidney, except renal pelvis (HCC) Expected: 08/05/2021, Expires: 08/06/2021 [facility] Work Phone: Comment on above: Expected: 08/05/2021 , Expires: 08/06/2021 Start: 07-31-2021 End: 09-30-2021 CBC W Auto Differential panel - Blood CBC + DIFF Lab Routine Renal cell carcinoma, unspecified laterality (HCC) Expected: 07/31/2021, Expires: 09/30/2021 [facility] Work Phone: Comment on above: Expected: 07/31/2021 , Expires: 09/30/2021 Start: 07-31-2021 End: 09-30-2021 Comprehensive metabolic 2000 panel - Serum or Plasma COMP METABOLIC PANEL Lab Routine Renal cell carcinoma, unspecified laterality (HCC) Expected: 07/31/2021, Expires: 09/30/2021 [facility] Work Phone: Comment on above: Expected: 07/31/2021 , Expires: 09/30/2021 Start: 07-24-2021 End: 07-25-2021 aPTT in Platelet poor plasma by Coagulation assay ACTIVATED PTT Lab STAT Malignant neoplasm of right kidney, except renal pelvis (HCC) Expected: 07/24/2021, Expires: 07/25/2021 [facility] Work Phone: Comment on above: Expected: 07/24/2021 , Expires: 07/25/2021 Start: 07-24-2021 End: 07-25-2021 CBC W Auto Differential panel - Blood CBC + DIFF Lab STAT Malignant neoplasm of right kidney, except renal pelvis (HCC) Expected: 07/24/2021, Expires: 07/25/2021 [facility] Work Phone: Comment on above: Expected: 07/24/2021 , Expires: 07/25/2021 Start: 07-24-2021 End: 07-25-2021 CLINICAL TRIAL DRAW CLINICAL TRIAL DRAW Lab STAT Malignant neoplasm of right kidney, except renal pelvis (HCC) Expected: 07/24/2021, Expires: 07/25/2021 [facility] Work Phone: Comment on above: Expected: 07/24/2021 , Expires: 07/25/2021 Start: 07-24-2021 End: 07-25-2021 Comprehensive metabolic 2000 panel - Serum or Plasma COMP METABOLIC PANEL Lab STAT Malignant neoplasm of right kidney, except renal pelvis (HCC) Expected: 07/24/2021, Expires: 07/25/2021 [facility] Work Phone: Comment on above: Expected: 07/24/2021 , Expires: 07/25/2021 Start: 07-24-2021 End: 07-25-2021 Lactate dehydrogenase [Enzymatic activity/volume] in Serum or Plasma LD LACTATE DEHYDRO Lab STAT Malignant neoplasm of right kidney, except renal pelvis (HCC) Expected: 07/24/2021, Expires: 07/25/2021 [facility] Work Phone: Comment on above: Expected: 07/24/2021 , Expires: 07/25/2021 Start: 07-24-2021 End: 07-25-2021 Magnesium [Mass/volume] in Serum or Plasma MAGNESIUM BLD Lab STAT Malignant neoplasm of right kidney, except renal pelvis (HCC) Expected: 07/24/2021, Expires: 07/25/2021 [facility] Work Phone: Comment on above: Expected: 07/24/2021 , Expires: 07/25/2021 Start: 07-24-2021 End: 07-25-2021 Phosphate [Mass/volume] in Serum or Plasma PHOSPHORUS INORGANIC Lab STAT Malignant neoplasm of right kidney, except renal pelvis (HCC) Expected: 07/24/2021, Expires: 07/25/2021 [facility] Work Phone: Comment on above: Expected: 07/24/2021 , Expires: 07/25/2021 Start: 07-24-2021 End: 07-25-2021 PT panel - Platelet poor plasma by Coagulation assay PROTHROMBIN TIME/PT Lab STAT Malignant neoplasm of right kidney, except renal pelvis (HCC) Expected: 07/24/2021, Expires: 07/25/2021 [facility] Work Phone: Comment on above: Expected: 07/24/2021 , Expires: 07/25/2021 Start: 07-24-2021 End: 07-25-2021 Urate [Mass/volume] in Serum or Plasma URIC ACID BLOOD Lab STAT Malignant neoplasm of right kidney, except renal pelvis (HCC) Expected: 07/24/2021, Expires: 07/25/2021 [facility] Work Phone: Comment on above: Expected: 07/24/2021 , Expires: 07/25/2021 Start: 07-15-2021 End: 07-16-2021 aPTT in Platelet poor plasma by Coagulation assay ACTIVATED PTT Lab STAT Malignant neoplasm of right kidney, except renal pelvis (HCC) Expected: 07/15/2021, Expires: 07/16/2021 [facility] Work Phone: Comment on above: Expected: 07/15/2021 , Expires: 07/16/2021 Start: 07-15-2021 End: 07-16-2021 CBC W Auto Differential panel - Blood CBC + DIFF Lab STAT Malignant neoplasm of right kidney, except renal pelvis (HCC) Expected: 07/15/2021, Expires: 07/16/2021 [facility] Work Phone: Comment on above: Expected: 07/15/2021 , Expires: 07/16/2021 Start: 07-15-2021 End: 07-16-2021 Comprehensive metabolic 2000 panel - Serum or Plasma COMP METABOLIC PANEL Lab STAT Malignant neoplasm of right kidney, except renal pelvis (HCC) Expected: 07/15/2021, Expires: 07/16/2021 [facility] Work Phone: Comment on above: Expected: 07/15/2021 , Expires: 07/16/2021 Start: 07-15-2021 End: 07-16-2021 Lactate dehydrogenase [Enzymatic activity/volume] in Serum or Plasma LD LACTATE DEHYDRO Lab STAT Malignant neoplasm of right kidney, except renal pelvis (HCC) Expected: 07/15/2021, Expires: 07/16/2021 [facility] Work Phone: Comment on above: Expected: 07/15/2021 , Expires: 07/16/2021 Start: 07-15-2021 End: 07-16-2021 Magnesium [Mass/volume] in Serum or Plasma MAGNESIUM BLD Lab STAT Malignant neoplasm of right kidney, except renal pelvis (HCC) Expected: 07/15/2021, Expires: 07/16/2021 [facility] Work Phone: Comment on above: Expected: 07/15/2021 , Expires: 07/16/2021 Start: 07-15-2021 End: 07-16-2021 Phosphate [Mass/volume] in Serum or Plasma PHOSPHORUS INORGANIC Lab STAT Malignant neoplasm of right kidney, except renal pelvis (HCC) Expected: 07/15/2021, Expires: 07/16/2021 [facility] Work Phone: Comment on above: Expected: 07/15/2021 , Expires: 07/16/2021 Start: 07-15-2021 End: 07-16-2021 PT panel - Platelet poor plasma by Coagulation assay PROTHROMBIN TIME/PT Lab STAT Malignant neoplasm of right kidney, except renal pelvis (HCC) Expected: 07/15/2021, Expires: 07/16/2021 [facility] Work Phone: Comment on above: Expected: 07/15/2021 , Expires: 07/16/2021 Start: 07-15-2021 End: 07-16-2021 T3 FREE BLD T3 FREE BLD Lab STAT Malignant neoplasm of right kidney, except renal pelvis (HCC) Expected: 07/15/2021, Expires: 07/16/2021 [facility] Work Phone: Comment on above: Expected: 07/15/2021 , Expires: 07/16/2021 Start: 07-15-2021 End: 07-16-2021 T4 FREE/FREE THYROX T4 FREE/FREE THYROX Lab STAT Malignant neoplasm of right kidney, except renal pelvis (HCC) Expected: 07/15/2021, Expires: 07/16/2021 [facility] Work Phone: Comment on above: Expected: 07/15/2021 , Expires: 07/16/2021 Start: 07-15-2021 End: 07-16-2021 Thyrotropin [Units/volume] in Serum or Plasma TSH BLD Lab STAT Malignant neoplasm of right kidney, except renal pelvis (HCC) Expected: 07/15/2021, Expires: 07/16/2021 [facility] Work Phone: Comment on above: Expected: 07/15/2021 , Expires: 07/16/2021 Start: 07-15-2021 End: 07-16-2021 Urate [Mass/volume] in Serum or Plasma URIC ACID BLOOD Lab STAT Malignant neoplasm of right kidney, except renal pelvis (HCC) Expected: 07/15/2021, Expires: 07/16/2021 [facility] Work Phone: Comment on above: Expected: 07/15/2021 , Expires: 07/16/2021 Start: 06-24-2021 End: 08-24-2021 PT panel - Platelet poor plasma by Coagulation assay PROTHROMBIN TIME/PT Lab STAT Mass of right chest wall Expected: 06/24/2021, Expires: 08/24/2021 [facility] Work Phone: Comment on above: Expected: 06/24/2021 , Expires: 08/24/2021 Start: 06-23-2021 End: 07-23-2022 Bone &/joint imaging whole body NM BONE WHOLE BODY Radiology Routine Malignant neoplasm of kidney, unspecified laterality (HCC) Malignant neoplasm of kidney excluding renal pelvis, unspecified laterality (HCC) Expected: 06/23/2021 (Approximate), Expires: 07/23/2022 [facility] Work Phone: Comment on above: Expected: 06/23/2021 (Approximate), Expires: 07/23/2022 Start: 06-23-2021 End: 07-23-2022 Ct abdomen & pelvis w/contrast material CT ABD/PEL W IVCON Radiology Routine Malignant neoplasm of kidney, unspecified laterality (HCC) Malignant neoplasm of kidney excluding renal pelvis, unspecified laterality (HCC) Expected: 06/23/2021 (Approximate), Expires: 07/23/2022 [facility] Work Phone: Comment on above: Expected: 06/23/2021 (Approximate), Expires: 07/23/2022 Start: 06-23-2021 End: 07-23-2022 Ct abdomen & pelvis w/o contrast material CT ABD/PEL WO IVCON Radiology Routine Malignant neoplasm of kidney, unspecified laterality (HCC) Malignant neoplasm of kidney excluding renal pelvis, unspecified laterality (HCC) Expected: 06/23/2021, Expires: 07/23/2022 [facility] Work Phone: Comment on above: Expected: 06/23/2021 , Expires: 07/23/2022 Start: 05-21-2021 COVID-19 VACCINE (4 - Booster for Pfizer series) COVID-19 VACCINE (4 - Booster for Pfizer series) [facility] Start: 04-23-2021 COVID-19 VACCINE (4 - Booster for Pfizer series) COVID-19 VACCINE (4 - Booster for Pfizer series) [facility] Start: 04-15-2021 COVID-19 VACCINE (4 - Booster for Pfizer series) COVID-19 VACCINE (4 - Booster for Pfizer series) [facility] Start: 03-18-2021 COVID-19 VACCINE (4 - Booster for Pfizer series) COVID-19 VACCINE (4 - Booster for Pfizer series) [facility] Start: 03-08-2021 DEPRESSION ASSESSMENT DEPRESSION ASS ESSMENT [facility] Start: 11-19-2020 Colonoscopy COLONOSCOPY [facility] Start: 11-19-2020 COLORECTAL CANCER SCREENING COLORECTAL CANCER SCREENING [facility] Start: 11-19-2020 Screening for malign ant neoplasm of colon [facility] Start: 11-05-2020 Hepatitis B surface antibody level LDL CHOLESTEROL [facility] Start: 07-28-2019 FECAL OCCULT BLOOD FECAL OCCULT BLOO D [facility] Start: 07-28-2019 Screening for malign ant neoplasm of colon Fecal Occult Blood [facility] Start: 03-16-2017 Adult depression scr eening assessment DEPRESSION SCREENING [facility] Start: 01-01-2014 Measurement of occul t blood in single stool specimen FIT [facility] Start: 01-01-2014 Screening for malign ant neoplasm of colon CRC Screening [facility] Start: 01-01-2014 Shingles (RZV) Vacci ne (1 of 2) Shingles (RZV) Vaccine (1 of 2) [facility] Start: 01-01-2014 SHINGRIX VACCINE (1 of 2) ROSS GRIX VACCINE (1 of 2) [facility] Start: 01-01-2009 COLOGUARD (FIT-DNA) COLOGUARD (FIT-D NA) [facility] Start: 01-01-[address] COLONOGRAPHY [facility] Start: 01-01-2009 Screening for malign ant neoplasm of colon [facility] Start: 01-01-2009 SIGMOIDOSCOPY SIGMOIDOSCOPY [facility] Start: 01-01-1999 Lipid panel Cholesterol [facility] Start: 01-01-1983 ONE PNEUMOVAX PRIOR TO AGE 65 ONE PNEUMOVAX PRIOR TO AGE 64 [facility] Start: 01-01-1983 SHINGRIX VACCINE (1 of 2) ROSS GRIX VACCINE (1 of 2) [facility] Start: 01-01-1982 Anxiety Screening Anxiety Screening [facility] Start: 01-01-1982 BP CONTROLLED (<130/80) BP CON TROLLED (<130/80) [facility] Start: 01-01-1982 Depression Screening Depression Scre ening [facility] Start: 01-01-1982 Hepatitis C screening Hepatitis C An tibody [facility] Start: 01-01-1982 Tetanus + diphtheria + acellular pertussis vaccine (product) Tdap Booster [facility] Start: 01-01-1979 HIV screening HIV Test [facility] Start: 01-01-1970 PNEUMOCOCCAL (1 - PCV) PNEUMOCOCCAL (1 - PCV) [facility] Start: 1965 COVID-19 Vaccine (#1) COVID-19 Vacci ne (#1) [facility] Start: 1965 HEPATITIS B (1 of 3 - 3-dose series) HEPATITIS B (1 of 3 - 3-dose series) [facility] Start: 1965 Screening for malign ant neoplasm of colon Colonoscopy [facility] Basic metabolic 2007 panel with ionized calcium - Serum or Plasma [facility] Basic metabolic 2008 panel with ionized calcium - Serum or Plasma [facility] Biopsy bone trocar/n eedle superficial IMAGING GUIDED BIOPSY RIB/BONY PELVIS/STERNUM/SPINOUS PROCESS Radiology Routine Malignant neoplasm of kidney, unspecified laterality (HCC) Malignant neoplasm of kidney excluding renal pelvis, unspecified laterality (HCC) Ordered: 06/23/2021 [facility] Work Phone: Comment on above: Ordered: 06/23/2021 Bone &/joint imaging whole body NM BONE WHOLE BODY Radiology Routine Renal cell carcinoma of right kidney (HCC) Ordered: 03/11/2022 [facility] Work Phone: Comment on above: Ordered: 03/11/2022 CBC W Auto Different ial panel - Blood [facility] CBC W Auto Different ial panel - Blood [facility] CBC W Auto Different ial panel - Blood [facility] CLINICAL TRIAL DRAW CLINICAL TRI AL DRAW Lab STAT Malignant neoplasm of right kidney, except renal pelvis (HCC) 08/08/2021 9:04 AM EDT [facility] Work Phone: End: 08-27-2022 Ct abdomen & pelvis w/contrast material CT ABD/PEL W IVCON Radiology Routine Malignant neoplasm of right kidney, except renal pelvis (HCC) Malignant neoplasm of kidney excluding renal pelvis, unspecified laterality (HCC) 1 Occurrences starting 07/28/2021 until 08/27/2022 [facility] Work Phone: Comment on above: 1 Occurrences starti ng 07/28/2021 until 08/27/2022 End: 09-19-2022 Ct abdomen & pelvis w/contrast material CT ABD/PEL W IVCON Radiology Routine Malignant neoplasm of right kidney, except renal pelvis (HCC) Malignant neoplasm of kidney excluding renal pelvis, unspecified laterality (HCC) 1 Occurrences starting 08/21/2021 until 09/19/2022 [facility] Work Phone: Comment on above: 1 Occurrences starti ng 08/21/2021 until 09/19/2022 Ct abdomen & pelvis w/contrast material CT ABD/PEL W IVCON Radiology Routine Renal cell carcinoma of right kidney (HCC) Ordered: 03/11/2022 [facility] Work Phone: Comment on above: Ordered: 03/11/2022 CT Abdomen and Pelvi s WO contrast [facility] CT CHEST W IVCON CT CHEST W IVCO N Radiology Routine Renal cell carcinoma of right kidney (HCC) Ordered: 03/11/2022 [facility] Work Phone: Comment on above: Ordered: 03/11/2022 CT Chest WO contrast [facility] End: 09-19-2022 Ct thorax w/contrast material CT CHEST W IVCON Radiology Routine Malignant neoplasm of right kidney, except renal pelvis (HCC) Malignant neoplasm of kidney excluding renal pelvis, unspecified laterality (HCC) 1 Occurrences starting 08/21/2021 until 09/19/2022 [facility] Work Phone: Comment on above: 1 Occurrences starti ng 08/21/2021 until 09/19/2022 End: 07-11-2022 ECG COMPLETE ECG COMPLETE ECG Routine Malignant neoplasm of right kidney, except renal pelvis (HCC) 1 Occurrences starting 07/11/2021 until 07/11/2022 [facility] Work Phone: Comment on above: 1 Occurrences starti ng 07/11/2021 until 07/11/2022 ECG COMPLETE [facility] End: 12-30-2022 ECG COMPLETE ECG COMPLETE ECG Routine Renal cell carcinoma of right kidney (HCC) 1 Occurrences starting 12/30/2021 until 12/30/2022 [facility] Work Phone: Comment on above: 1 Occurrences starti ng 12/30/2021 until 12/30/2022 End: 02-16-2023 ECHO LIMITED ECHO LIMITED Cardiology Routine Acute decompensated heart failure (HCC) Paroxysmal atrial fibrillation (HCC) 1 Occurrences starting 02/16/2022 until 02/16/2023 [facility] Work Phone: Comment on above: 1 Occurrences starti ng 02/16/2022 until 02/16/2023 End: 07-11-2022 Echocardiography ECHO Cardiology Routine Malignant neoplasm of right kidney, except renal pelvis (HCC) 1 Occurrences starting 07/11/2021 until 07/11/2022 [facility] Work Phone: Comment on above: 1 Occurrences starti ng 07/11/2021 until 07/11/2022 Elastase.pancreatic [Presence] in Stool [facility] INR in Blood by Coagulation assay [facility] INR in Blood by Coagulation assay [facility] INR in Blood by Coagulation assay [facility] Lactate dehydrogenas e measurement [facility] Magnesium [Mass/volu me] in Serum or Plasma [facility] Magnesium measurement [facility] End: 09-07-2022 Mri abdomen w/o & w/contrast material MRI KIDNEY WO/W IVCON Radiology Routine Other specified disorders of kidney and ureter 1 Occurrences starting 08/08/2021 until 09/07/2022 [facility] Work Phone: Comment on above: 1 Occurrences starti ng 08/08/2021 until 09/07/2022 End: 08-13-2022 Mri brain brain stem w/o w/contrast material MRI BRAIN WO/W IVCON Radiology Routine Malignant neoplasm of kidney excluding renal pelvis, unspecified laterality (HCC) Renal cell carcinoma, unspecified laterality (HCC) 1 Occurrences starting 07/14/2021 until 08/13/2022 [facility] Work Phone: Comment on above: 1 Occurrences starti ng 07/14/2021 until 08/13/2022 NM Heart Views W str ess and W radionuclide IV [facility] End: 07-22-2022 OUTSIDE LISA OUTSIDE LISA Cardiology Routine Nonrheumatic mitral valve regurgitation 1 Occurrences starting 07/22/2021 until 07/22/2022 [facility] Work Phone: Comment on above: 1 Occurrences starti ng 07/22/2021 until 07/22/2022 Ova and parasites identified in Unspecified specimen by Light microscopy [facility] Patient Education [facility] Work Phone: Patient referral [facility] Work Phone: End: 08-19-2022 Polysomnogram POLYSOMNOGRAM (PSG) Procedures Routine Disturbance in sleep behavior 1 Occurrences starting 08/19/2021 until 08/19/2022 [facility] Work Phone: Comment on above: 1 Occurrences starti ng 08/19/2021 until 08/19/2022 End: 01-29-2023 Radiologic exam chest 2 views XR CHEST 2V FRONTAL/LAT Radiology Routine Renal cell carcinoma of right kidney (HCC) 1 Occurrences starting 12/30/2021 until 01/29/2023 [facility] Work Phone: Comment on above: 1 Occurrences starti ng 12/30/2021 until 01/29/2023 Respiratory Panel (PCR) Respirat ory Panel (PCR) [facility] Respiratory pathogen s DNA and RNA 12b panel - Unspecified specimen by SANDOVAL with probe detection [facility] T3 FREE BLD T3 FREE BLD Lab STAT Malignant neoplasm of right kidney, except renal pelvis (HCC) 07/21/2021 7:53 AM EDT [facility] Work Phone: T4 FREE/FREE THYROX T4 FREE/FREE THYROX Lab STAT Malignant neoplasm of right kidney, except renal pelvis (HCC) 07/21/2021 7:53 AM EDT [facility] Work Phone: Thyroid stimulating hormone measurement [facility] Troponin I measurement [facility] Work Phone: Troponin I measurement [facility] URINALYSIS, REFLEX MICROSCOPIC URINALYSIS, REFLEX MICROSCOPIC Lab Routine Screening for genitourinary condition Ordered: 01/23/2022 [facility] Work Phone: Comment on above: Ordered: 01/23/2022 [facility] Work Phone: [facility] Immunizations Immunization Date Immunization Notes Care Provider [facility] 01-21-2021 Pfizer-BioNTech COVID-19 Vacc 30 MCG/0.3ML Intramuscular Suspension Daksha Turner Work Phone: [facility] 06-20-2020 Covid (Pfizer) Dr. Janusz Turner Work Phone: [facility] 06-15-2020 Pfizer-BioNTech COVID-19 Vacc 30 MCG/0.3ML Intramuscular Suspension Daksha Turner Work Phone: [facility] 05-25-2020 Pfizer-BioNTech COVID-19 Vacc 30 MCG/0.3ML Intramuscular Suspension Daksha Turner Work Phone: [facility] 07-25-2018 tetanus toxoid, reduced diphtheria toxoid, and acellular pertussis vaccine, adsorbed Dawit Urbina MD Work Phone: [facility] 12-06-2013 influenza, seasonal, injectable Dawit Urbina MD Work Phone: [facility] 12-06-2013 influenza virus vaccine, unspecified formulation Noreen Morejon Work Phone: [facility] Date of Pneumonia Vaccine: Family [facility] Work Phone: Payers Date Payer Category Payer Medicare [id number] 2023 Self-pay [id number] 2023 Self-pay [id number] 2023 Medicare [id number] 2020 Unknown [employer] [id number] 2020-Present [phone] [place] [address] [id number]. [id number] 2018 Unknown [id number] 1.2.840.901686.1.13.159.2. 7.3.934238.315 2016 Unknown [id number] 2015 Unknown [employer] [id number] 2015-Present [phone] [place] [address] [id number] 1.2.840.575222.1.13.159.2. 7.3.610594.315 2008 Unknown [facility] [employer] [id number] 2008-Present [phone] [address] [place] [address] [id number] 1.2.840.264680.1.13.159.2. 7.3.378202.315 2008 Worker's Compensation [employer] [id number] 2008-Present [phone] [place] [address] Worker's Comp [id number] .3.688293.315 2006 Unknown [id number] 1964 Unknown [id number] 2.840.1.224433.3.579.2. 1069 1964 Unknown [id number] 2.840.1.990997.3.579.2. 1069 1964 Unknown [id number] 2.840.1.485457.3.579.2. 356 1964 Unknown [id number] 2.840.1.030303.3.579.2. 356 Medicare [id number] Unknown [id number] 2.840.1.642100.3.579.2. 277 Unknown [id number] 2.840.1.906129.3.579.2. 462 Unknown [id number] 2.840.1.122205.3.579.2. 462 Unknown [id number] 2.16840.1.371795.3.579.2. 462 Unknown [id number] 2.16840.1.498560.3.579.2. 462 Unknown [id number] 2.840.1.359976.3.579.2. 462 Unknown [id number] 2.16.840.1.312435.3.579.2. 462 Unknown [id number] 2.16.840.1.173971.3.579.2. 462 Unknown [id number] 2.16.840.1.513758.3.579.2. 462 Unknown [id number] 2.16.840.1.530183.3.579.2. 462 Unknown [id number] 2.16.840.1.663924.3.579.2. 462 Unknown [id number] 2.16.840.1.230224.3.579.2. 462 Unknown [id number] 2.840.1.946179.3.579.2. 462 Unknown [id number] 2.840.1.891297.3.579.2. 462 Unknown [id number] 2.840.1.502993.3.579.2. 462 Unknown [id number] 2.840.1.361286.3.579.2. 462 Unknown [id number] 2..840.1.141752.3.579.2. 462 Unknown [id number] 2.16840.1.227979.3.579.2. 462 Unknown [id number] 2.16.840.1.313120.3.579.2. 462 Unknown [id number] 2..840.1.772740.3.579.2. 462 Unknown [id number] 2.16.840.1.197862.3.579.2. 462 Unknown [id number] 2.16.840.1.645384.3.579.2. 462 Unknown [id number] 2.16.840.1.466704.3.579.2. 462 Unknown [id number] 2.16.840.1.046556.3.579.2. 462 Unknown [id number] 2.16840.1.988177.3.579.2. 462 Social History Date Type Detail Facility Start: 06-19-2021 End: 10-09-2021 Tobacco smoking status NHIS Never smoker [facility] Start: 1965 Sex Assigned At Male S [facility] Start: 08-19-2021 End: 10-02-2024 Tobacco smoking status NHIS Smokes tobacco daily [facility] Work Phone: History of tobacco use Cigarette Smoker [facility] Work Phone: Start: 06-20-2021 End: 12-09-2021 Alcohol intake Current drinker of alcohol (finding) [facility] Start: 1965 Sex Assigned At Not on file [facility] Start: 06-10-2021 End: 01-19-2022 Exposure to SARS-CoV-2 (event) Not sure [facility] Start: 07-01-2021 End: 11-28-2021 Exposure to SARS-CoV-2 (event) Unable to assess [facility] Start: 06-04-2019 End: 12-15-2022 Tobacco smoking status NHIS Unknown if ever smoked [facility] Work Phone: Start: 06-04-2019 Spouse/ Signif icant Other [facility] Start: 06-04-2019 Secondhand [facility] Start: 08-19-2021 End: 12-09-2021 Tobacco Comment former cigarettes, now cigars 3 per day [facility] Start: 08-19-2021 End: 10-09-2021 Cigarettes smoked current (pack per day) - Reported 0.3 [facility] Start: 08-19-2021 End: 02-16-2022 Tobacco use and exposure Smokeless tobacco non-user [facility] Start: 10-27-2021 History SDOH Alcohol Comment 3 times a week per pt 10/27/2021 [facility] History of tobacco use Cigar Smoker [facility] Start: 02-16-2022 Tobacco smoking status NHIS Ex-smoker [facility] History of tobacco use Current smoker [facility] Start: 02-16-2022 End: 02-17-2022 Alcohol intake Ex-drinker (finding) [facility] Start: 02-16-2022 Tobacco Comment About a month ago smoked cigars About 3-4 years from last time smoked cigarettes [facility] Adult Depression Screening Assessment 1 [facility] Start: 06-06-2024 End: 06-22-2024 Sex Male (finding) [facility] NEGATED: Highlighted rowStart: NINF History of tobacco use Passive smoker [facility] Goals Date Patient Goal Desired Activity /State Functional Status Date Assessment Result Facility 12-17-2022 Functional status Ambulates [facility] Work Phone: 06-29-2022 Functional status Ambulates [facility] Work Phone: 05-20-2022 Functional status Activity Ability [facility] Work Phone: 05-20-2022 Functional status Patient Activity Bedres [facility] Work Phone: 04-16-2022 Functional status Activity Ability [facility] Work Phone: 04-16-2022 Functional status Ambulates;Up ad haley [facility] Work Phone: 12-09-2021 Functional status Ambulates [facility] Work Phone: 12-08-2021 Functional status None [facility] Work Phone: Functional observable [facility] Mental Status Date Assessment Result Facility 12-17-2022 Cognitive function Voice/Name [facility] Work Phone: 06-29-2022 Cognitive function Voice/Name [facility] Work Phone: 06-27-2022 Cognitive function Voice/Name [facility] Work Phone: 05-20-2022 Cognitive function Voice/Name [facility] Work Phone: 04-16-2022 Cognitive function Voice/Name [facility] Work Phone: 02-06-2022 Cognitive functi ons [id number] [facility] 01-20-2022 Cognitive function Awake;Alert;A ppropriate;Foll ows Commands [facility] Work Phone: 12-09-2021 Cognitive function Voice/Name [facility] Work Phone: 12-07-2021 Cognitive function Voice/Name [facility] Work Phone: Clinical Notes 06-30-2004 to 06-20-2024 Note Date & Type Note Facility 06-20-2024 Evaluation note Diagnosis Onset Date Resolution 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 June 20 1:05pm Renal cell cancer chronic June 062024 1:05pm [facility] Work Phone: 1(875) 745-743104-15-2025 Evaluation note* Diagnosis Onset Date Resolution Status [...] 2024 12:55pm Hypertension inactive August 14 12:55pm [facility] Work Phone: 1(548) 339-505504-15-2025 Evaluation note* Diagnosis Onset Date Resolution Status [...] Hypertension inactive August 14 12:55pm [facility] Work Phone: 1(552) 312-986204-15-2025 Evaluation note* Diagnosis Onset Date Resolution Status [...] Hypertension inactive October 02, 2 025 2:24pm [facility] Work Phone: 1(797) 290-262904-15-2025 Evaluation note* Diagnosis Onset Date Resolution Status [...] failure) chron ic October 02, 2024 2:24pm [facility] Work Phone: 1(903) 195-785804-09-2025 Radiology Diagnostic study note [facility] Imaging Services [address] [place] [address] CT Chest, Abd, Pel w/Contrast MR#: [id number] Acct: [id number] Name: YEFRI YANEZ Rep #: [id number] : [id number] M 59 From: Manuela Holman MD PCP: Dr. Daksha Turner MD Status: REG CLI Study:CT Chest, Abd, Pel w/Contrast Date of E xam: 06/13/24 Exam# [id number] Ordering Dr: Jose Botello MD PROCEDURE: CT [...] Turner MD; Dr. Dangelo Botello MD ~ Credit Card Interviewer: Signed [facility]10-11-2023 Progress note Author Carol Chiu [facility] December 16, 2022 12:38pm Note Date/Time December 16, 2022 1 2:38pm [facility] Medical Records Department [address] [place] [address] Progress Note - Hospitalist 12/16/22 1227 MR#: [id number] Acct: [id number] Name: YEFRI YANEZ Rep #:[id number] : 1965 57 From: Carol Chiu DO PCP: Dr. Jose Ramon Turner MD Status: ADM LISY Location: [place] [address] Reason for Visit Reason for Visit: Shortness of breath Subjective Subjective Mr. Yanez is a 57-year-old -Macanese male who presented to the emergency department at [facility] on 12/15/2022 with worsening shortness of breath. Patient told the admitting physician that he is supposed to be wearing his oxygen all the time at home however he is only wearing it whenneeded. His oxygen was written for by Dr. Yanez and is to be 3 L [id number]-ipnhx. He does have a history of systolic [...] is supposed to be on 3 L nwerjl-myi-qandn of oxygen. He tells me that he [...] (Auto) 87.2 H, Lymph % (Auto) 7.4L, [place] % (Auto) 4.6, Eos % (Auto) 0.1, [...] 79.3 H, Lymph % (Auto) 12.9 L, [place] % (Auto) 6.0, Eos % (Auto) 0.9, [...] habitus or healthy appearing Constitutional Narrative: Obese, -Macanese, male, lying in bed, appears comfortable and [...] post nephrectomy 02/06/2022--> Dr. Aravind Lopez at [facility] -Currently on immunotherapy -Patient has undergone radiation [...] in a.m. Charges/Coding Visit Charges Inpatient E&M: 37936 Subs Hosp L2 12/16/22 1238 <Electronically signed by Carol Chiu DO> Cosigner Signature (if applicable): CC: ~ Signed [facility] Work Phone: [phone]) 885-435110-10-2023 History and physical note Author Marquise Padilla [facility] December 15, 2022 7:30pm Note Date/Time December 15, 2022 4 :56pm [facility] Medical Records Department [address] [place] [address] H&P Exam - Hospitalist 12/15/22 1648 MR#: [id number] Acct: [id number] Name: YEFRI YANEZ Rep #:[id number] : 1965 57 From: Marquise ogden MD PCP: Dr. Jose Ramon Turner MD Status: ADM LISY Location: [place] [address] HPI - General General Date of Admission: [...] 87.2 H, Lymph % (Auto) 7.4 L, [place] % (Auto) 4.6, Eos % (Auto) 0.1, [...] DVT: Coumadin Charges/Coding Visit Charges Inpatient E&M: 92348 Init Hosp L3 12/15/221929 <Electronically signed by Marquise Padilla MD> Cosigner Signature (if applicable): CC: Dr. Jose Ramon Turner MD; Dr. Marquise Padilla MD~ Signed [facility] Work Phone: 1(156) 914-945010-10-2023 Discharge summary Author Speedy Bass [facility] December 15, 2022 3:29pm Note Date/Time December 15, 2022 1 :13pm [facility] Medical Records Department [address] [place] [address] Emergency Department Summary 12/15/22 MR#: [id number] Acct: [id number] Name: EYFRI YANEZ Rep #:[id number] : 1965 57 From: Speedy Bass MD [...] 87.2 H Lymph % (Auto) 7.4 L [place] % (Auto) 4.6 Eos % (Auto) 0.1 [...] Provider] - Disposition Disposition: [facility] What to do if you have Problems For any increased pain, shortness of breath, bleeding, nausea or vomiting, chestpain, or any unexpected problems, contact your Primary Care Provider. Call [facility] ([phone]) or report to the closest Emergency Room. Call 911 if necessary. 12/15/22 1529 <Electronically signed by Speedy Bass MD> Cosigner Signature (if applicable): CC: Dr. Jose Ramon Turner MD ~ Signed [facility] Work Phone: [phone]) 723-674604-24-[address] Chiu [facility] June 29, 2022 11:24am Note Date/Time June 29, 2022 11: 08am [facility] Medical Records Department [address] [place] [address] Discharge Summary 06/29/22 1105 MR#: [id number] Acct: [id number] Name: YEFRI YANEZ Rep #:[id number] : 1965 57 From: Carol Chiu DO PCP: Dr. Jose Ramon Turner MD Status: ADM IN Location: [place] [address] Providers Date of Admission: 06/28/22 Date of [...] distress and well nourished Constitutional Narrative: Obese, -Macanese, upper middle-aged, male, lying in bed talking [...] (Auto) 91.8 H, Lymph % (Auto) 2.9L, [place] % (Auto) 4.4, Eos % (Auto) 0.0, [...] Your Visit: Shortness of breath Attending Provider: Caorl Chiu Primary Care Provider: Jose Ramon Turner [...] Self Care Charges/Coding Visit Charges Inpatient E&M: 79568 Disch Hosp >30min 06/29/22 1124 <Electronically signed by Carol Chiu DO> Cosigner Signature (if applicable): CC: Dr. Jos eRamon Turner MD; Dr. Carol Chiu DO~ Signed [facility] Work Phone: [phone]) 773-217904-23-[address] Wei [facility] June 28, 2022 3:27pm Note Date/Time June 28, 2022 2:1 6pm [facility] Medical Records Department [address] [place] [address] Progress Note 06/28/22 1412 MR#: [id number] Acct: [id number] Name: YEFRI YANEZ Rep #:[id number] : 1965 57 From: Pau Wei MD PCP: Dr. Jose Ramon Turner MD Status: ADM IN Location: [place] [address] 1 Subjective Subjective Patient seen and examined. [...] 75.4 H, Lymph % (Auto) 16.8 L, [place] % (Auto) 6.0, Eos % (Auto) 0.5, [...] (Auto) 92.0 H, Lymph % (Auto) 4.6L, [place] % (Auto) 2.3, Eos % (Auto) 0.2, [...] is therapeutic. Charges/Coding Visit Charges Inpatient E&M: 46937 Subs Hosp L2 06/28/22 1527 <Electronically signed by Pau Wei MD> Pau Wei MD Cosigner Signature (if applicable): CC: ~ Signed [facility] Work Phone: [phone]) [phone] Hastings [facility] June 28, 2022 2:56am Note Date/Time June 27, 2022 11: 30pm [facility] Medical Records Department [address] [place] [address] Emergency Department Summary 06/27/22 MR#: [id number] Acct: [id number] Name: YEFRI YANEZ Rep #:[id number] : 1965 57 From: Livan Lin PCP: Dr. Jose Ramon Turner MD Status: ADM IN Location: [address] History of Present Illness Chief Complaint: Chest Pain Informant: patient, spouse/S.O. and family Narrative Narrative: 10-day history worsening dyspnea with exertion with mild chest discomfort. Significant other present. Diagnosed history of CHF had a heart cath at [facility] that was negative. History of paroxysmal A-fib [...] 75.4 H Lymph % (Auto) 16.8 L [place] % (Auto) 6.0 Eos % (Auto) 0.5 [...] (Auto) Neut % (Auto) Lymph % (Auto) [place] % (Auto) Eos % (Auto) Baso % [...] Atrial fibrillation Disposition Disposition: [facility] Discharge Date/Time: 06/28/22 01:02 What to do if you have Problems For any increased pain, shortness of breath, bleeding, nausea or vomiting, chest pain, or any unexpected problems, contact your Primary Care Provider. Call [facility] ([phone]) or report to the closest Emergency Room. Call 911 if necessary. 06/28/22 0256 <Electronically signed by Livan Lin> Cosigner Signature (if applicable): CC: Dr. Jose Ramon Turner MD ~ Signed [facility] Work Phone: [phone] 543-311904-23-2023 History and physical note Author Dr. Lu [facility] June 28, 2022 12:52am Note Date/Time June 28, 2022 12: 20am [facility] Medical Records Department [address] [place] [address] H&P Exam - Hospitalist 06/28/22 0007 MR#: [id number] Acct: [id number] Name: YEFRI YANEZ Rep #:[id number] : 1965 57 From: Estelita Lu MD PCP: Dr. Jose Ramon Turnre MD Status: ADM IN Location: [place] [address] HPI - General General Date of Admission: 06/28/22 Date of Service: 06/28/22 Chief Complaint: Dyspnea, chest pain, wheezing, cough, recent incorrect Rx bumex. HPI Narrative The patient is a 57 y/o M w/ PMHx: Obesity, NIMCO on CPAP, PAF s/p prior cardioversion on coumadin, COPD, HTN, HLD, GERD, Metastatic renal CA s/p R nephrectomy, Tobacco use who presents [facility] the [facility] on 06/27/22 with history of worsening [...] 75.4 H, Lymph % (Auto) 16.8 L, [place] % (Auto) 6.0, Eos % (Auto) 0.5, [...] nephrectomy, Tobacco use who presents to the [facility] ED on 06/27/22 with history of worsening [...] spine 12/2021, 02/06/2022 right radical nephrectomy at [facility], CT scan on 03/26/2022 showed [...] 75 minutes. Charges/Coding Visit Charges Inpatient E&M: 55747 Init Hosp L3 Procedures Hospitalists Procedures: 31088 Advncd Care Plan 30 Min 06/28/22 0052 <Electronically signed by Estelita Lu MD> Cosigner Signature (if applicable): CC: Dr. Estelita Lu MD; Dr. Jose Ramon Turner MD~ Signed [facility] Work Phone: [phone] Che [facility] May 20, 2022 9:40am Note Date/Time May 20, 2022 9:4 0am [facility] Medical Records Department [address] [place] [address] Discharge Summary 05/20/22 0939 MR#: [id number] Acct: [id number] Name: YEFRI YANEZ Rep #:[id number] : 1965 57 From: Jesús Che DO PCP: Dr. Jose Ramon Turner MD Status: ADM IN Location: [place] [address] Providers Date of Admission: 05/18/22 Primary Care [...] to been established with oncology at the [facility] and then at [facility] but due to insurance changes, he will be following up with [facility]. DVT ppx: Coumadin therapeutic Discharge home [...] Qty: 60 0RF Referrals / Follow Up: [facility] [Provider Group] - 05/27/22 10:30 am *[facility] [Provider Group] - Within 1 Month Jose Ramon Turner MD [Primary Care Provider] - Within 2 Weeks Disposition Disposition (needs filled in before D/C Order can be placed): Home, Self Care Charges/Coding Visit Charges Inpatient E&M: 41407 Disch Hosp >30min 05/20/22 0940 <Electronically signed by Jesús Che DO> Cosigner Signature (if applicable): CC: Dr. Jose Ramon Turner MD; Dr. Jesús Che DO~ Signed [facility] Work Phone: [phone] 617-728603-15-[address] Che [facility] May 20, 2022 9:39am Note Date/Time May 20, 2022 9:3 3am [facility] Medical Records Department [facility] [place] [address] Instructions for Home/Discharge Instructions 05/20/22 0932 MR#: [id number] Acct: [id number] Name: YEFRI YANEZ Rep #:[id number] : 1965 57 From: Jesús Che DO [...] Qty: 60 0RF Referrals / Follow Up: [facility] [Provider Group] - 05/27/22 10:30 am *[facility] [Provider Group] - Within 1 Month Jose Ramon Turner MD [Primary Care Provider] - Within 2 Weeks Disposition Disposition (needs filled in before D/C Order can be placed): Home, Self Care 05/20/22 0939<Electronically signed by Jesús Che DO>Jesús Che DO CC: Dr. Jose Ramon Turner MD; Dr. Alicia Dukes MD ~ Signed [facility] Work Phone: [phone]) 384-812203-15-[address] Che [facility] May 20, 2022 9:32am Note Date/Time May 20, 2022 8:3 4am [facility] Medical Records Department [address] [place] [address] Progress Note - Hospitalist 05/20/22 0831 MR#: [id number] Acct: [id number] Name: YEFRI YANEZ Rep #:[id number] : 1965 57 From: Jesús Che DO PCP: Dr. Jose Ramon Turner MD Status: ADM IN Location: [place] [address] Reason for Visit Reason for Visit: Diagnoses [...] (if applicable): CC: ~ Signed [facility] Work Phone: [phone]) 109-347003-14-[address] Che [facility] May 19, 2022 1:50pm Note Date/Time May 19, 2022 8:1 1am [facility] Medical Records Department [address] [place] [address] Progress Note - Hospitalist 05/19/22 0808 MR#: [id number] Acct: [id number] Name: YEFRI YANEZ Rep #:[id number] : 1965 57 From: Jesús Che DO PCP: Dr. Jose Ramon Turner MD Status: ADM IN Location: [place] [address] Reason for Visit Reason for Visit: Diagnoses [...] 80.8 H, Lymph % (Auto) 13.3 L, [place] % (Auto) 4.9, Eos % (Auto) 0.2, [...] 80.2 H, Lymph % (Auto) 14.8 L, [place] % (Auto) 4.0, Eos % (Auto) 0.5, [...] Coumadin therapeutic Charges/Coding Visit Charges Inpatient E&M: 79622 Subs Hosp L2 05/19/22 1350 <Electronically signed by Jesús Che DO> Cosigner Signature (if applicable): CC: ~ Signed [facility] Work Phone: [phone]) 528-507603-13-[address] Banda [facility] May 18, 2022 8:58pm Note Date/Time May 18, 2022 4:1 8pm [facility] Medical Records Department [address] [place] [address] Emergency Department Summary 05/18/22 MR#: [id number] Acct: [id number] Name: YEFRI YANEZ Rep #:[id number] : 1965 57 From: Kassy Banda MD PCP: Dr. Jose Ramon Turner MD Status: ADM IN Location: [address] History of Present Illness Chief Complaint: [...] Medical decision making narrative: Patient placed on registered nurse cardiac to evaluate for arrhythmia. 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 Call [facility] ([phone]) or report to the closest Emergency Room. Call 911 if necessary. 05/18/222057 <Electronically signed by Kassy Banda MD> Cosigner Signature (if applicable): CC: Dr. Jose Ramon Turner MD ~ Signed [facility] Work Phone: [phone]) [phone] History and physical note Author Dr. Dukes [facility] May 18, 2022 7:34pm Note Date/Time May 18, 2022 6:3 8pm [facility] Medical Records Department [address] [place] [address] H&P Exam - Hospitalist 05/18/221822 MR#: [id number] Acct: [id number] Name: YEFRI YANEZ Rep #:[id number] : 1965 57 From: Alicia Dukes MD PCP: Dr. Jose Ramon Turner MD Status: ADM IN Location: [facility] [id number]- 1 HPI - General General Date of Admission: 05/18/22 Date of Service: 05/18/22 Chief Complaint: SOB, weight gain HPI Narrative YEFRI YANEZ, is a 57 M with a history of congestive heart failure, hypertension, NIMCO, renal cancer status post unilateral nephrectomy in March, A-fib on Coumadin presented to [facility] 05/18/2022 with increasing weight and shortness of [...] 80.8 H, Lymph % (Auto) 13.3 L, [place] % (Auto) 4.9, Eos % (Auto) 0.2, [...] 16:45 EDT Reading Location ID and State: [facility] / [place] , Service support , Assessment & Plan [...] 60 minutes Charges/Coding Visit Charges Inpatient E&M: 99912 Init Hosp L2 03/1933 <Electronically signed by Alicia Dukes MD> Cosigner Signature (if applicable): CC: Dr. Jose Ramon Turner MD; Dr. Alicia Dukes MD~ Signed [facility] Work Phone: [phone]) [phone] Chiu [facility] April 15, 2022 4:54pm Note Date/Time April 15, 2022 4 :54pm [facility] Medical Records Department [address] [place] [address] Progress Note - Hospitalist 04/15/22 1647 MR#: [id number] Acct: [id number] Name: YEFRI YANEZ Rep #:[id number] : 1965 57 From: Carol Chiu DO PCP: Dr. Jose Ramon Turner MD Status: ADM IN Location: [place] [address] Reason for Visit Reason for Visit: Diagnoses [...] 74.5 H, Lymph % (Auto) 15.1 L, [place] % (Auto) 8.4, Eos % (Auto) 0.4, [...] distress and well nourished Constitutional Narrative: Obese, -Macanese, male lying in bed on supplemental oxygen [...] be deferred till tomorrow -Troponins have been [phone] -This elevation may be related to his [...] post nephrectomy 02/06/2022--> Dr. Aravind Lopez at [facility] -Currently on chemotherapy -Patient has undergone radiation [...] -INR therapeutic Charges/Coding Visit Charges Inpatient E&M: 40807 Subs Hosp L2 04/15/22 1650 <Electronically signed by Carol Chiu DO> Cosigner Signature (if applicable): CC: ~ Signed [facility] Work Phone: [phone]) 437-676502-07-[address] Chiu [facility] April 14, 2022 6:11pm Note Date/Time April 14, 2022 7 :40am [facility] Medical Records Department [address] [place] [address] Progress Note - Hospitalist 04/14/22 0737 MR#: [id number] Acct: [id number] Name: YEFRI YANEZ Rep #:[id number] : 1965 57 From: Carol Chiu DO [...] on February 06 by Aravind Lopez at [facility]. He does have metastatic disease to bone. [...] 79.4 H, Lymph % (Auto) 12.7 L, [place] % (Auto) 7.1, Eos % (Auto) 0.0, [...] distress and well nourished Constitutional Narrative: Obese, -Macanese, male sitting up in bed on supplemental [...] to be done tomorrow -Troponins have been [phone] -This elevation may be related to his [...] post nephrectomy 02/06/2022--> Dr. Aravind Lopez at [facility] -Currently on chemotherapy -Patient has undergone radiation [...] in a.m. Charges/Coding Visit Charges Inpatient E&M: 86010 Subs Hosp L2 04/14/22 1811 <Electronically signed by Carol Chiu DO> Cosigner Signature (if applicable): CC: ~ Signed [facility] Work Phone: [phone]) 262-814902-07-2023 History and physical note Author Dr. Camacho [facility] April 14, 2022 12:43am Note Date/Time April 14, 2022 1 2:24am [facility] Medical Records Department [address] [place] [address] H&P Exam - Hospitalist 04/13/22 9384 MR#: [id number] Acct: [id number] Name: YEFRI YANEZ Rep #:[id number] : 1965 57 From: Daneglo Camacho MD PCP: Dr. Jose Ramon Turner [...] 79.4 H, Lymph % (Auto) 12.7 L, [place] % (Auto) 7.1, Eos % (Auto) 0.0, [...] 21:56 EST Reading Location ID and State: [facility] / [place] Tel , Service support [...] is subtherapeutic. Charges/Coding Visit Charges Inpatient E&M: 18118 Init Hosp L3 04/14/22 0043 <Electronically signed by Dangelo Camacho MD> Cosigner Signature (if applicable): CC: Dr. Jose Ramon Turner MD; Dr. Dangelo Camacho MD~ Signed [facility] Work Phone: [phone]) [phone] Dunn [facility] April 13, 2022 11:51pm Note Date/Time April 13, 2022 1 0:31pm [facility] Medical Records Department [address] [place] [address] Emergency Department Summary 04/13/22 MR#: [id number] Acct: [id number] Name: YEFRI YANEZ Rep #:[id number] : 1965 57 From: Kei Dunn DO [...] February [address] Aravind Lopez at [facility]. Patient reported that he is on a [...] 79.4 H Lymph % (Auto) 12.7 L [place] % (Auto) 7.1 Eos % (Auto) 0.0 [...] your Primary Care Provider. Call [facility] ([phone]) or report to the closest Emergency Room. Call 911 if necessary. 04/13/22 9961 <Electronically signed by Kei Dunn DO> Cosigner Signature (if applicable): CC: Dr. Jose Ramon Turner MD ~ Signed [facility] Work Phone: 1(409) 604-848902-07-[address] Dunn [facility] April 13, 2022 11:51pm Note Date/Time April 13, 2022 1 0:31pm [facility] Medical Records Department [address] [place] [address] Emergency Department Summary 04/13/22 MR#: [id number] Acct: [id number] Name: YEFRI YANEZ Rep #:[id number] : 1965 57 From: Kei Dunn DO [...] February [address] Aravind Lopez at [facility]. Patient reported that he is on a [...] 79.4 H Lymph % (Auto) 12.7 L [place] % (Auto) 7.1 Eos % (Auto) 0.0 [...] your Primary Care Provider. Call [facility] ([phone]) or report to the closest Emergency Room. Call 911 if necessary. 04/13/22 2351 <Electronically signed by Kei Dunn DO> Cosigner Signature (if applicable): CC: Dr. Jose Ramon Turner MD ~ Signed [facility] Work Phone: 1(413) 208-268902-02-2023 NoteHNO ID: [id number] Author: Sary Garcia RN Service: ? Author Type: Registered Nurse Type: Progress Notes Filed: 04/09/2022 1:29 PM Note Text: Patient treatment being held today per physician discretion. Sary Garcia RN [facility]02-02-2023 NoteHNO ID: [id number] Author: Liliam Ashley RN Service: ? Author Type: Registered Nurse Type: Progress Notes Filed: 04/09/2022 1:29 PM Note Text: Speeder Worker Chart Processing Date: 2022 Laboratory: Draw labs: Pending Labs. Office visit prior to treatment please verify all needed labs were drawn and review results. Chemotherapy Orders: Orders NOT released to Pharmacy. TREATMENT RN TO RELEASE Consents: Consent form needs signed by patient Special Instructions: Validate height [facility] History of Present illness Narrative* Sary Garcia RN - 04/09/2022 1:29 PM EST Patient treatment being held today per physician discretion. Sary Garcia RN BSN * Liliam Ashley RN - 04/09/2022 11:30 AM EST Speeder Worker Chart Processing Date: 2022 Laboratory: Draw labs: Pending Labs. Office visit prior to treatment please verify all needed labs were drawn and review results. Chemotherapy Orders: Orders NOT released to Pharmacy. TREATMENT RN TO RELEASE Consents: Consent form needs signed by patient Special Instructions: Validate height Liliam Ashley RN documented in this encounterKing[facility] [place]23 NoteHNO ID: [id number] Author: Haylee Wilburn MD Service: ? Author Type: Physician Type: Progress Notes Filed: 04/09/2022 4:21 PM Note Text: [facility] Progress Note SERVICE DATE: April 09, 2022 [...] started treatment with cabo + nivo on [facility] 1819 Trial on 08/08/2021 at [facility]. He has baseline HTN and developed worsening HTN after starting treatment. His cabo was held on 08/18/2021, resumed on 09/11/2021. The Nivo was held on 09/11/21 due to pneumonitis, and prednisone 60 mg daily was started and tapered off within about one month. Due to insurance change, he was taken off the trial and referred to [facility] Oncology. All treatments were supposed to be [...] radical nephrectomy by Dr. Aravind Hernandez at [facility] in [facility] on 02/06/2022. PATHOLOGY: -Renal cell carcinoma, clear-cell type, 5.3 x 3.0 x 2.7 cm, ISUP nuclear grade 3. -Carcinoma invades renal vein and lurdes-nephritic adipose tissue. -Margins of resection are negative for carcinoma. -Lymphovascular invasion not identified. -Regional lymph nodes not submitted. -[id number]. 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 He denies pain in the [...] tablet Take 2 table (more content not included)...[facility]01-26-20[facility] Miscellaneous Notes* Telephone Encounter - Donavon Eastman - 04/02/2022 11:02 AM EST Patient did not show for appointment with MW, left message to call office put on recall Donavon Eastman' documented in this encounterKing[facility] [place]-2023 Miscellaneous Notes* Telephone Encounter - [place] Schwartz RN - 04/02/2022 10:51 AM ESTSummary: Appointment Called patient and in regards to missed office visit with Dr. Wilburn, and immunotherapy appointment. No answer left messages for patient to call and reschedule. America Schwartz RN, BSN, OCN documented in this encounterKing'S [facility] [place]01-19-2023 NoteHNO ID: [id number] Author: Jerica Parsons RT(R) Service: Radiology Author [...] Yanez DATE: March 26, 2022 TIME: 10:16 [facility]01-18-2023 Miscellaneous Notes* Telephone Encounter - Tania Parekh RN - 03/25/2022 8:57 AM EST Patient called stating his insurance is not approved for our office and that Dr. Wilburn needs to place a Referral for Nathaniel. I reminded him that last week he called me telling me that his insurance is making him go to [facility] for the scans and not [...] insurance information.Tania Parekh RN documented in this encounterKing'S Daughters Medical Center [place]01-16-2023 NoteHNO ID: [id number] Author: RT Citlaly(R) Service: ? Author Type: [...] March 23, 2022 TIME: 12:10 PM PAGER/CONTACT #:[facility]01-16-2023 History of Present illness Narrative* RT [...] radiation safety can be found usingthis link: [email or web address] SIGNATURE: RT Citlaly(R) PATIENT NAME: Yefri Yanez DATE: March 23, 2022 TIME: 12:10 PM PAGER/CONTACT #: documented in this encounterKing'S Daughters Medical [facility] [place]01-09-2023 Miscellaneous Notes* Telephone Encounter - Malachi Schaffer RPh - 03/16/2022 11:27 AM EST Prior authorization was approved for Inlyta. Plan Name: [employer] [place] reference number: [id number] Approval Dates: 03/08/2022 - 03/13/2023 However, s/he is required to use [facility] to fill this medication. Will queue prescription(s) to go to designated specialty pharmacy. For reference, their pharmacy phone number is [phone]. No further action by [facility] Specialty. Radha Schaffer, PharmD, AAHIVP Clinical Pharmacist, Oncology [facility] P: ; F: Pool: P CC [facility] ONCOLOGY Pool #: [id number] documented in this encounterKing'S Daughters Medical Center [place]01-05-2023 Miscellaneous Notes* Telephone Encounter - America Schwartz RN - 03/12/2022 10:37 AM ESTSummary: Appointment LMOM with the appointment dates, times and location of upcoming bone scan and CT scans. Bone scan 03/23/22 at 830 am here at the [facility] hospital. CT scans at [facility] 03/24/22 at 1pm. America Reed RN, BSN, OCN documented in this encounterKing'S Daughters Medical Center [place]01-05-2023 NoteOhio[facility]01-05-2023 NoteOhio[facility]01-05-2023 NoteOhiohealth [facility] Center01-05-2023 History of Present illness Narrative* Adrienne Chung (Visual Basic .Net Developer) - 03/12/2022 8:13 AM EST [facility] received prescription(s) for Inlyta from Dr. Wilburn's office. Benefits investigation was conducted, indicating that a prior authorization is required by patient's insurance plan with [employer]. Encounter will be updated once prior authorization has been submitted by [facility]. Adrienne Chung, Lead [facility], Oncology P: / F: documented in this encounterKing'S Daughters Medical Center [place]01-04-2023 NoteHNO ID: [id number] Author: Haylee Wilburn MD Service: ? Author Type: Physician Type: Progress Notes Filed: 03/11/2022 4:16 PM Note Text: [facility] Progress Note SERVICE DATE: March 11, 2022 [...] started treatment with cabo + nivo on [facility] 1820 Trial on 08/08/2021 at [facility]. He has baseline HTN and developed worsening HTN after starting treatment. His cabo was held on 08/18/2021, resumed on 09/11/2021. The Nivo was held on 09/11/21 due to pneumonitis, and prednisone 60 mg daily was started and tapered off within about one month. Due to insurance change, he was taken off the trial and referred to [facility] to resume the treatment. He was scheduled to have nephrectomy on 11/04/21, but delayed due to his back pain. He underwent palliative XRT to L3-L5 (2,000 cGy in 5 fx), completed 12/26/21). He underwent da Farzad assisted robotic right radical nephrectomy at [facility] in [facility]. I do not have the official pathology report yet. We have made multiple requests to [facility] for the surgical pathology, to no avail. [...] Admin perflutren lipid microsphere (more content not included)...[facility] 03-11-2022 History of Present illness Narrative* Haylee Wilburn MD - 03/11/2022 1:25 PM EST Images from the original note were not included. [facility] Progress Note SERVICE DATE: March 11, 2022 [...] started treatment with cabo + nivo on [facility] 1820 Trial on 08/08/2021 at [facility]. He has baseline HTN and developed worsening HTN after starting treatment. His cabo was held on 08/18/2021, resumed on 09/11/2021. The Nivo was held on 09/11/21 due to pneumonitis, and prednisone 60 mg daily was started and tapered off within about one month. Due to insurance change, he was taken off the trial and referred to [facility] to resume the treatment. He was scheduled to have nephrectomy on 11/04/21, but delayed due to his back pain. He underwent palliative XRT to L3-L5 (2,000 cGy in 5 fx), completed 12/26/21). He underwent da Farzad assisted robotic right radical nephrectomy at [facility] in [facility]. I do not have the official pathology report yet. We have made multiple requests to [facility] for the surgical pathology, to no avail. [...] underwent radical nephrectomy by Dr. Lopez at [facility], but I do not have [...] cc: Daksha Turner MD documented in this encounterKing'S Daughters Medical Center [place]12-27-2022 NoteSend Summary: Discharge Summary Providers: Provider RoleProvider Name Aravind Kinsey Christopher Note Recipients: Aravind Hernandez MD Ranney, Christopher, MD - [id number] [] Discharge: Summary: Admission Date: .06-Feb-2022 08:57:00 [...] Data Referenced From Consult-DACR, Medicine 07-Feb-2022 16:43[facility]12-13-2022 NoteHNO ID: [id number] Author: Haylee Wilburn MD Service: ? Author Type: Physician Type: Progress Notes Filed: 02/17/2022 5:25 PM Note Text: [facility] Progress Note SERVICE DATE: February 17, 2022 [...] started treatment with cabo + nivo on [facility] 182 Trial on 08/08/2021 at [facility]. He has baseline HTN and developed worsening HTN after starting treatment. His cabo was held on 08/18/2021, resumed on 09/11/2021. The Nivo was held on 09/11/21 due to pneumonitis, and prednisone 60 mg daily was started and tapered off within about one month. Due to insurance change, he was taken off the trial and referred to [facility] to resume the treatment. He was scheduled to have nephrectomy on 11/04/21, but delayed due to his back pain and palliative XRT to L3-L5 (2,000 cGy in 5 fx, completed 12/26/21). His back pain has resolved. He underwent da Farzad assisted robotic right radical nephrectomy at [facility] in [facility]. I do not [...] headaches and light-headedness. Hematol (more content not included)...[facility]12-13-2022 History of Present illness Narrative* Haylee Wilburn MD - 02/17/2022 5:02 PM EST Images from the original note were not included. [facility] Progress Note SERVICE DATE: February 17, 2022 [...] started treatment with cabo + nivo on [facility] Trial on 08/08/2021 at [facility]. He has baseline HTN and developed worsening HTN after starting treatment. His cabo was held on 08/18/2021, resumed on 09/11/2021. The Nivo was held on 09/11/21 due to pneumonitis, and prednisone 60 mg daily was started and tapered off within about one month. Due to insurance change, he was taken off the trial and referred to [facility] to resume the treatment. He was scheduled to have nephrectomy on 11/04/21, but delayed due to his back pain and palliative XRT to L3-L5 (2,000 cGy in 5 fx, completed 12/26/21). His back pain has resolved. He underwent da Farzad assisted robotic right radical nephrectomy at [facility] in [facility]. I do not have the official [...] MD on 10/20/2021 PLAN: Old records from [facility] including surgical pathology and scans. Follow-up in 3 weeks regarding systemic therapy. Haylee Wilburn MD cc: Daksha Turner MD documented in this encounterKing'S Daughters [facility] [place]12-13-2022 Miscellaneous Notes* Telephone Encounter - Florian Mello RN - 02/17/2022 9:03 AM EST She never called me back but he came in for his appt yesterday. Florian Mlelo RN * Telephone Encounter - Florian Mello [...] with Dr. Tello. Please call her at [phone]. documented in this encounterKing'S Daughters Medical Center [place]12-12-2022 NoteHNO ID: [id number] Author: Sayra Tello MD Service: ? Author Type: Physician Type: Progress Notes Filed: 02/16/2022 11:29 AM Note Text: [facility] OUTPATIENT VISIT DATE 02/16/2022 OUTPATIENT VISIT TYPE NEW PATIENT PRIMARY CARE PHYSICIAN: Daksha Turner (Sarah) [address] [place] [id number] HISTORY OF PRESENT ILLNESS: 57-year-old male CAD, [...] vaping sometimes tobacco. 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 PAST MEDICAL HISTORY Diagnosis Date Abdominal aortic [...] 1 tablet by kellie (more content not included)...[facility]12-12-2022 Instructions* Patient Instructions* Florian Mello RN - 02/16/2022 11:23 AM EST We will call you with the date and time of your test. Please report to the Cardiac Diagnostics Department: Located on the 2nd floor of the surgery center on [address] ([facility]). [facility] Menagerie and free parking is available. The test may be scheduled at a different location. If this happens the oyster worker will notify you when calling to give you the date and time information. If you have any questions regarding the test or if you need to cancel / reschedule your appointment, please call [phone] as soon as possible. Please refer to [...] them, faxthem, drop them off, or use [employer]. If you have any questions before your next appointment please call Florian Montana RN @ [phone] ext [phone]. If Adrienne asked you to call her so she can help you with [employer] you can call her at [phone] ext [phone]. documented in this encounterKing'S Daughters Medical Center [place]12-12-2022 History of Present illness Narrative* Sayra Tello MD - 02/16/2022 10:00 AM EST Images from the original note were not included. [facility] OUTPATIENT VISIT DATE 02/16/2022 OUTPATIENT VISIT TYPE NEW PATIENT PRIMARY CARE PHYSICIAN: Daksha Turner ([facility]) [address] [place] [id number] HISTORY OF PRESENT ILLNESS: 57-year-old male CAD, [...] vaping sometimes tobacco. 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 PAST MEDICAL HISTORY Diagnosis Date Abdominal aortic [...] previous ECGs available Confirmed by YARY CLEMENT, [facility] ([id number]) on 01/20/2022 8:35:[address] Result [...] MR moderate TR moderate AI RVSP 35 [facility] 08/05/2021: Mid left main 20%, mild diffuse [...] vaping sometimes tobacco. 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 Plan: Reviewed all the prior reports including [...] diagnosis) Sayra Tello MD documented in this encounterKing'S Daughters Medical Center [place]12-09-2022 NoteHNO ID: [id number] Author: Suman Peterson APRN.BOOSTER ASSEMBLER Service: ? Author Type: Nurse Practitioner Type: [...] or develops any concerning symptoms. Suman Peterson APRN.[facility]12-09-2022 Nurse Note* Tamiko Mason RN - 02/13/2022 2:13 PM EST Images from the original note were not included. Radiation Therapy - Nursing Note (Follow-up) PATIENT NAME: Yefri Yanez PATIENT February 13, 2022 [facility] FACILITY/LOCATION: [facility] Reason for visit: Follow up. Subjective Data Patient reports 8/10 pain r/t recent right nephrectomy at on 02/06. Additional Data Do you want to see a Maple Products Supervisor? No Difficulty performing or completing routine daily [...] MOB 02/17/2022 11:30 AM Haylee Wilburn MD [facility] Courtney CLEMENT MOB SIGNED by: Tamiko Mason RN documented in this encounterKing'S Daughters Medical Center [place]12-09-2022 History of Present illness Narrative* Suman Peterson APRN.[facility] - 02/13/2022 2:02 PM EST Radiation [...] symptoms. Suman Peterson APRN.BEATRICE documented in this encounterKing'S Daughters Medical Center [place]12-06-2022 Hospital Discharge instructions* Follow Up Appointment 1:Physician/Dept/Service: Dr. Lockett for Referral: post op follow upCall to Schedule in: 2 weeksPhone Number: [phone]: Please call to schedule appointment * Follow [...] WORRISOME - NOTIFY YOUR PHYSICIAN OR RESIDENT MEDICAL VAN DRIVER. - Fever g reater than 101 F or 38.3 C, chills, nausea, vomiting, or feeling ill. - Inability to urinate. - Drainage of foul smelling fluid (pus) from the incision or drain sites. - Excruciating pain that is not controlled by prescription or sebs-ifu-lsltmzx medications. * Medication Information:- You were sent [...] appointments, please call our Main Office at [phone]. [facility]12-02-2022 NotePROCEDURE DETAILS Preoperative Diagnosis: renal cell carcinoma, congestive heart failure Postoperative Diagnosis: renal cell carcinoma, congestive heart failure Surgeon: Aravind Hernandez MD Resident/Fellow/Other Plane Captain: Clau Diallo MD Procedure: laparoscopic right radical [...] the xiphoid process. A 12 mm assistant principal port was placed a hands-breadth inferolateral to [...] then closed in several layers. Initially, several hywtlm-fg-wpaov sutures were placed with 0 Vicryl to reapproximate the bellies of the rectus abdominis. The anterior rectus fascia was then closed using running 0 PDS suture x2. Subcutaneous fat was then c (more content not included)...[facility]12-02-2022 Note History & Physical Reviewed: I have [...] the note. I personally evaluated the patient [id number] Electronic Signatures: Aravind Hernandez) (Signed 07-Feb-2022 09:05) Authored: Note Completion Co-Signer: History & Physical Reviewed, ERAS, Consent, Note Completion Clau Diallo (Resident)) (Signed 06-Feb-2022 07:12) Authored: History & Physical Reviewed, ERAS, Consent, Note Completion Last Updated: 07-Feb-2022 09:05 by Aravind Hernandez)[facility] 01-22-2022 Miscellaneous Notes* Telephone Encounter - Bairon Landers MA - 01/22/2022 1:00 PM EST Pt called in to request a refill on his torsemide to be sent to [facility] [place], this request wassent to Kitty Carballo for approval and processing. Per Kitty this was refused due to we don't prescribe this medication, I called to advise Pt that he will need to contact the prescribing doctor to get a refill on this mediation. He verbalized understanding. documented in this encounterKing'S Daughters Medical Center [place]11-14-2022 NoteHNO ID: [id number] Author: RT Kourtney(R) Service: Radiology Author Type: [...] BY: RT Kourtney(R) January 19, 2022 11:03 [facility]11-14-2022 History of Present illness Narrative* RT [...] 19, 2022 11:03 AM documented in this encounterKing'S Daughters Medical Center [place]10-28-2022 NoteHNO ID: [id number] Author: Alfredo Xavier MD Service: Radiation Oncology Author Type: Physician Type: Progress Notes Filed: 01/07/2022 12:35 AM Note Text: YEFRI YANEZ [id number] 2022 [facility] Department of Radiation Oncology [facility] RADIATION ONCOLOGY: COMPLETION NOTE DATE OF SIMULATION: 12/12/2021 DATES OF TREATMENT: 12/22/2021 to 12/26/2021 TREATMENT MACHINE: Dekkun TREATMENT AREA: L3-L5 , R CW DIAGNOSIS: 57 year old male with Malignant neoplasm of right kidney, except renal pelvis , histological stage [id number] and clinical stage IV CONCURRENT THERAPY: DELIVERED [...] :36 PM Electronically Signed cc: Daksha Mills, [facility]10-28-2022 History of Present illness Narrative * Alfredo Xavier MD - 2022 12:00 AM EDT YEFRI YANEZ [id number] 2022 [facility] Department of Radiation Oncology [facility] RADIATION ONCOLOGY: COMPLETION NOTE DATE OF SIMULATION: 12/12/2021 DATES OF TREATMENT: 12/22/2021 to 12/26/2021 TREATMENT MACHINE: Dekkun TREATMENT AREA: L3-L5 , R CW DIAGNOSIS: 57 year old male with Malignant neoplasm of right kidney, except renal pelvis , histological stage [id number] and clinical stage IV CONCURRENT THERAPY: DELIVERED [...] cc: Daksha Mills Michael documented in this encounterKing'S Daughters Medical [facility] [place]10-25-2022 Miscellaneous Notes* Telephone Encounter - Adriana Hodge MD - 12/30/2021 1:53 PM EDT IC Adriana Hodge MD documented in this encounterKing'S Daughters Medical Center [place]10-23-2022 Miscellaneous Notes* Telephone Encounter - Adriana Hodge [...] the anaestheic including but not limited to [place], CVA, DVT, and PE, and the risks [...] proceed. Adriana Hodge MD documented in this encounterKing'S Daughters Medical Center [place]10-22-2022 Miscellaneous Notes* Telephone Encounter - Adriana Hodge MD - 12/27/2021 7:07 PM EDT I tried to call to move his care forward, but had to leave messages on both lines Adriana Hodge MD documented in this encounterKing'S Daughters Medical Center [place]10-07-2022 NoteHNO ID: [id number] Author: Alfredo Xavier MD Service: Radiation Oncology Author Type: Physician Type: Progress Notes Filed: 12/17/2021 12:34 AM Note Text: YEFRI YANEZ [id number] 12/12/2021 [facility] Department of Radiation Oncology Treatment Planning Note [...] DVH. Electronically Signed Alfredo Xavier M.D. :19 [facility]10-[facility]2022 NoteHNO ID: [id number] Author: Alfredo Xavier MD Service: Radiation Oncology Author Type: Physician Type: Progress Notes Filed: 12/17/2021 12:34 AM Note Text: YEFRI YANEZ [id number] 12/12/2021 [facility] Department of Radiation Oncology [facility] RADIATION ONCOLOGY SIMULATION NOTE DATE OF [...] nursing. Electronically Signed Alfredo Xavier M.D. :06 [facility]10-07-2022 History of Present illness Narrative* Alfredo Xavier MD - 12/12/2021 12:00 AM EDT YEFRI YANEZ [id number] 12/12/2021 [facility] Department of Radiation Oncology Treatment Planning Note [...] Xavier M.D. :19 PM documented in this encounterKing'S Daughters [facility] [place]10-07-2022 History of Present illness Narrative* Alfredo Xavier MD - 12/12/2021 12:00 AM EDT YEFRI YANEZ [id number] 12/12/2021 [facility] Department of Radiation Oncology [facility] RADIATION ONCOLOGY SIMULATION NOTE DATE OF [...] Xavier M.D. 25:06 PM documented in this encounterKing'S Daughters [facility] [place]10-04-2022 NoteHNO ID: [id number] Author: Alfredo Xavier MD Service: ? Author [...] Nondistended. Musculoskeletal: No e (more content not included)...[facility] 12-09-2021 Nurse Note* Tamiko Mason RN - 12/09/2021 10:18 AM EDT Images from the original note were not included. Radiation Therapy - Nursing Note (Consult) PATIENT NAME: Yefri Yanez PATIENT December 09, 2021 [facility] FACILITY/LOCATION: [facility] Chief Complaint: Metastatic Renal Cell Cancer Reason for visit: Consult. Referring physician: Internal provider Dr. Cox, Dr. Wilburn Subjective Data: Patient denies pain at this time, he reports occasional pain in his lower back farnaz cramping sensation in the back of his thighs. He denies pain to the chest wall/rib. He reports that he was just discharged today from [facility]. He was admitted on Wednesday for shortness of breath. He reportedly received lasix and breathing treatments. He has an upcoming appt with his instructor trainer canine service, Dr. Black at [facility]. Additional Data Do you want to see a Maple Products Supervisor? No Are you interested in information about fertility? No Sexual Activity: Male: N/A Stress Scale: On a scale of 0 to 10, what number best describes how much distress you have experienced in the past week?(0 being no distress and 10 being extreme distress) 2 Social work notified: no GENERAL INFORMATION: PREVIOUS CHEMOTHERAPY: Pt started chemotherapy with Cabometyx + Nivolumab as per [facility] 1819 Trial. Reportedly this was held [...] oxygen in the home? 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 He was evaluated in the [facility]. As part [...] Alfredo Xavier MD cc: Daksha Turner (Sarah) [address] [place] [phone] documented in this encounterKing'S Daughters [facility] [place]10-04-2022 Telephone encounter Note * Telephone Encounter - Noreen Morejon - 12/09/2021 9:28 AM EDT Patient unable to contact No voicemail to return call Invalid Number Letter sent CALI May Network Control Operators Supervisor [address] [place] [place] [address] [id number] Miscellaneous Notes* Telephone Encounter - Noreen Morejon - 12/09/2021 9:28 AM EDT Patient unable to contact No voicemail to return call Invalid Number Letter sent CALI May Network Control Operators Supervisor [facility] [address] [place] [address] [place] [address] [email or web address] documented in this [id number] Miscellaneous Notes* Telephone Encounter - Adriana Hodge [...] his Adriana Hodge MD documented in this encounterKing'S Daughters [facility] [place]09-19-2022 Miscellaneous Notes* Telephone Encounter - America Schwartz RN - 11/24/2021 12:23 PM EDTSummary: Requesting pain medication Patient is requesting patient medication for pain in bilateral legs, states that it is a 6/10 constant cramping. Informed patient that nurse will discuss with physician and return call. Patient verbalized understanding. America Schwartz RN, BSN, OCN documented in this encounterKing'S Daughters [facility] [place]09-15-2022 NoteOhiohealth [facility] Medical Center09-15-2022 NoteOhiohealth [facility] Center09-15-2022 History of Present illness Narrative* Marcelino Mayberry [...] 20, 2021 10:33 AM documented in this encounterKing'S Daughters [facility] [place]09-14-2022 NoteHNO ID: [id number] Author: Haylee Wilburn MD Service: ? Author Type: Physician Type: Progress Notes Filed: 11/19/2021 9:58 AM Note Text: [facility] Progress Note SERVICE DATE: November 19, 2021 [...] started treatment with cabo + nivo on [facility] 18[facility] Trial on 08/08/2021 at [facility]. He has baseline HTN and developed worsening HTN after starting treatment. His cabo was held on 08/18/2021, resumed on 09/11/2021. The Nivo was held on 09/11/21 due to pneumonitis, and prednisone 60 mg daily was started and tapered off within about one month. Due to insurance change, he was taken off the trial and referred to [facility] [facility] to resume the treatment. He was [...] is scheduled to have radical nephrectomy at [facility] soon after the repeat CT. STAGE: Cancer [...] Haylee Wilburn MD cc: Daksha Turner, [facility]09-14-2022 NoteHNO ID: [id number] Author: Haylee Wilburn MD Service: ? Author Type: Physician Type: Progress Notes Filed: 11/25/2021 3:53 PM Note Text: Note opened in [facility]09-14-2022 NoteHNO ID: [id number] Author: Bernarda Kee MA Service: ? Author Type: Credit Card Control Clerk Type: Progress Notes Filed: 11/19/2021 9:58 AM [...] BMI 37.59 kg/m? Physical Exam Assessment and [facility]09-14-2022 History of Present illness Narrative* Haylee Wilburn MD - 11/19/2021 9:33 AM EDT Images from the original note were not included. [facility] Progress Note SERVICE DATE: November 19, 2021 [...] started treatment with cabo + nivo on [facility] 1820 Trial on 08/08/2021 at [facility]. He has baseline HTN and developed worsening HTN after starting treatment. His cabo was held on 08/18/2021, resumed on 09/11/2021. The Nivo was held on 09/11/21 due to pneumonitis, and prednisone 60 mg daily was started and tapered off within about one month. Due to insurance change, he was taken off the trial and referred to [facility] to resume the treatment. He was [...] is scheduled to have radical nephrectomy at [facility] soon after the repeat CT. STAGE: Cancer [...] Exam Assessment and Plan documented in this encounterKing'S [facility]aughters [facility] [place]09-01-2022 Miscellaneous Notes* Telephone Encounter - Tania Parekh RN - 11/06/2021 9:30 AM EDT Spoke with computer help desk representative from [facility], she is asking that we reach out to patient to have them deliver his Cabometyx. She stated they have called him multiple times, yet he will not answer, and the one time he did answer she went over who she was and patient hung up on her.Tania Parekh RN documented in this encounterKing'S Daughters Medical Center [place]08-22-2022 Miscellaneous Notes* Telephone Encounter - Lisa Christensen PA-C - 10/27/2021 3:14 PM EDT Images from the original note were not included. Lalo Black MD You; [facility] Rn Resource Pool 1 18 [...] you for your help, Lisa Christensen PA-C [facility] documented in this encounterKing'S Daughters Medical Center [place]08-22-2022 History and physical note * Lisa Christensen [...] 366 QTC Calculation (Bazett) 440 Calculated R [place] 68 Calculated T [place] 72 Impression ATRIAL FIBRILLATION NONSPECIFIC T WAVE [...] prior LISA Recent Results (from the past 70652 hour(s)) ECHO Collection Time: 09/04/21 11:03 AM [...] * * * Final * * * [facility] 08/05/2021 + + DIAGNOSTIC FINDINGS + + [...] CAD (coronary artery disease) Assessment: Nonobstructive on [facility] 08/05/2021. METS: Climb a flight of stairs [...] received from Dr. Black, see TE in [facility] on 10/27/2021. Called pt and informed him [...] Initiated: Orders placed by surgeon/surgical service in [facility]. Planned Anesthetic: Per anesthesia choice Instructions Given to Patient: Instructions located in the after visit summary. Patient given verbal and written preop instructions and voices comprehension and compliance. SIGNATURE: Lisa Christensen PA-C PATIENT NAME: Yefri Yanez DATE: October 24, 2021 TIME: 11:08 AM documented in this encounterKing'S Daughters Medical Center [place]08-19-2022 Instructions* Patient Instructions* Lisa Christensen PA-C - 10/24/2021 11:20 AM EDT PATIENT PREOPERATIVE INSTRUCTIONS Adriana Hodge MD has scheduled you for your procedure at this surgery center: [facility] [place] [facility] Scheduling Office: [phone] --[address] [place] [address]. Please read below carefully for your personalized [...] NOT stop warfarin without consulting with your instructor trainer canine service or prescribing physician. - Stop Vitamin E, [...] call the Wednesday before. Your surgeon s oyster worker will tell you what time to call the office. - If you have not reached the departmental oyster worker by 5 P.M., call [phone] after 5 P.M. the day before your surgery. Please be aware that emergency situations arise, which may delay or change your surgical time. If this happens, we will notify you as soon as possible and regret any inconvenience. If you already have an Advance Directive, please fax a copy to [phone] or email to for it to be [...] your chart that day. documented in this encounterKing'S Daughters Medical Center [place]08-16-2022 NoteOhio[facility]08-16-2022 NoteOhio[facility] Center08-16-2022 NoteOhiohealth [facility] Center08-15-2022 NoteHNO ID: [id number] Author: Haylee Wilburn MD Service: ? Author Type: Physician Type: Progress Notes Filed: 10/21/2021 9:38 AM Note Text: [facility] Oncology Consult Note SERVICE DATE: October 20, [...] taken off the trial and referred to [facility] to resume the treatment. He is [...] Negative. Respiratory: Negative. Cardiovascul (more content not included)...[facility]08-11-2022 Miscellaneous Notes* Telephone Encounter - Jayy Kenyon Pss - 10/16/2021 8:22 AM EDT Tayler from [facility] is requesting a referral for Dr. Haylee Wilburn, to have patient scheduled for Wednesday, 10/20. Patient has been identified by name and birthdate. Duration of symptoms: N/A Requesting response back: Call [phone] if needed. Jayy Fair October 16, 2021 documented in this encounterKing'S Daughters Medical Center [place]08-09-2022 Miscellaneous Notes* Telephone Encounter - Rahul Knight RN - 10/14/2021 5:09 PM EDT Pt called back to discuss his questions regarding insurance coverage for [facility]. Pt did not answer, sovoice message left with instructions to call back. Also attempted to call pt's , also with no answer. Voice message left for spouse as well. Fazal Knight RN, BSN documented in this encounterKing'S Daughters Medical Center [place]08-09-2022 Miscellaneous Notes* Telephone Encounter - Lisa Stark - 10/14/2021 2:46 PM EDT Yefri Theodora Yanez('s) spouse is calling Kenneth Chester MD today regarding Patient Question Patient has been identified by name and birthdate. Would like to know why Yefri wasn't approved for research study Duration of symptoms: N/A Requesting response back: call at home [phone] (home) Lisa Stark October 14, 2021 documented in this encounterKing'S Daughters Medical Center [place]08-04-2022 [facility]08-04-2022 [facility]08-04-2022 Nurse Note* Ariadne Wood RN - 10/09/2021 10:22 AM EDT Additional intake questions: Has the patient had fever, nausea, vomiting, diarrhea, constipation, fatigue for > 1 week? Yes, fatigue Does the patient have a decreased appetite? No Does patient want to see a Maple Products Supervisor? No (yes to any of above refer patient to schedulers for dietitian appointment) ) Does patient have any new or increased numbness or tingling of extremities? No Is patient interested in fertility information? No Does patient need any prescription refills? No Does patient have an advanced directive in place? No, Patient referred to Resource Center documented in this encounterKing'S Daughters Medical Center [place]08-04-2022 History of Present illness Narrative* Godfrey Ohara APRN.BOOSTER ASSEMBLER - 10/09/2021 9:45 AM EDT Images from the original note were not included. [facility] Progress Note Oncology Clinic Patient name: Yefri [...] Abs Lymph 1.00 - 4.00 k/uL 2.33 [place]au% % 4.8 Abs Juneau <0.87 k/uL 0.35 Eosin% % 0.4 Abs [...] Started treatment with cabo + nivo on [facility]20 on 08/08/2021. He has baseline [...] out of network to receive care at [facility] - Patient is currently on warfarin for his atrial fibrillation, which is contraindicated per the clinical trial - Patient withdrew consent from [facility] 1820 and all follow up related [...] which included preparing to see the patient, [id number] patient care, completing clinical documentation, obtaining and/or [...] Oncology Advanced Practice Provider documented in this encounterKing'S Daughters Medical [facility] [place]08-04-2022 History of Present illness Narrative* Rahul Knight RN - 10/09/2021 9:20 AM EDT IRB#: [id number], [facility], Cyto-KIK; TRIAL (CYTO reductive surgery in Kidney cancer plus Immunotherapy (nivolumab) and targeted Kinase inhibition (cabozantinib) Cycle: 2 Week: 1 Phase: 2 Cohort: 2 Pt is here for withdrawal of consent of IRB# [id number] . PE completed by Godfrey Ohara APRN, BOOSTER ASSEMBLER. Was PE completed by a Fellow No [...] Anxiety r/t procedure 07/15/2021 08/06/21 Potassium Chloride* ([id number]) 20 MEQ PACKET Active 20 MEQ PO [...] Fazal Knight RN, BSN documented in this encounterKing'S Daughters Medical Center [place]07-25-2022 Miscellaneous Notes* Telephone Encounter - Sheela Chisholm RN - 09/29/2021 2:05 PM EDT Called patient for follow up from recent hospital discharge but no answer, message left on voicemail including resource nurse phone number. documented in this encounterKing'S Daughters Medical Center [place]07-25-2022 NoteOhiohealth Grant Medical Center07-25-2022 History of Present illness Narrative* Safia Carr, [facility] - 09/29/2021 7:19 AM EDT TRANSITION CARE MANAGEMENT (TCM) HEART FAILURE PHARMACY CONTACT Provider Action/FYI: TCM Medication Reconciliation partially completed for patient. See medication list table below for details. Medications discussed per patient preference outlined in bold in table below. Sent [employer] secure chat to Andre Harden CNP: 1) [...] Nephro for plan on Prednisone taper. Called [facility] pharmacy and ensured that Rx for Torsemide [...] take his insurance card. Pt to try [facility] instead of [facility]. Patient Workup: HF medication classes present on [...] oz) Patient was sent a message via [employer] including the link to the [facility] Heart Failure education video: Yes Initial contact with patient post discharge, spoke to patient and spouse, Miya,. Patient identified by name and . Summary: -Pt discharged from [facility] on 09/26/21. -Follow up appointment on 10/20/21. -Medication review done Partial medication review completed - per patient preference -Admitted for acute systolic heart failure Patient was contacted by telephone, identified for pharmacist care from discharge call list, and gave consent to manage medications related to transitional care management pursuant to the consult agreement with the [facility]. Patient Concerns: Review and discussion [...] subcutaneously q 12 HR. Re-initiated, Sent to [facility], Pt has filled and is taking as prescribed. PharmD called [facility] and verified that pt filled Rx for [...] tablets by mouth once daily. Sent to [facility], Pt has filled and is taking as prescribed. Pt's spouse will call Tool Dispatcher to determine the plan on this taper [...] tablets by mouth once daily. Sent to [facility], Pt has filled and is taking as [...] (40mg) by mouth once daily. Sent to [facility], Pt has filled and is taking as prescribed. PharmD called [facility] and verified that Torsemide Rx was filled as generic (pharmacy filled as generic) warfarin (COUMADIN) 5 mg tablet Take 1 tablet by mouth once daily. Sent to [facility], Pt has filled and is taking as prescribed. INR Date Value Ref Range Status 09/26/2021 1.3 0.9 - 1.3 Final Comment: Vitamin K Antagonist (VKA) Therapeutic Range: INR 2 to 3 (Target INR of 2.5) Note: For patients treated with VKA drugs, such as warfarin, the [employer] 2012 Guideline recommends [...] Chest 2012, 141:7S-47S Caitie RA, et al. [facility] 2017, 70: [phone] Pt had appt with PCP to check INR on 09/29/21 (INR was 1.9) and will have f/u INR on 10/03/21 with PCP. Pt's spouse states that new dose is Warfarin 6mg daily. Preferred pharmacy: e- [facility]/pharmacy #[id number] [place] [address] - [address] [facility] [phone] [facility] [address] [address] [facility] [address] [facility] [address] [facility] [address] e- [facility]/pharmacy #[id number] [place] [address] - [address] - [phone] [place] [phone] [facility] [id number] Estimated Creatinine Clearance: 104.4 mL/min (based on [...] Date(s) Administered COVID-19 vaccine, age 12+ yr ([employer] - PURPLE TOP) 05/25/2020 06/15/2020 01/21/2021 Influenza Seasonal Inj Age 3+ 12/06/2013 12/06/2013 Tdap (Age 7+) 07/25/2018 Additional follow up: Appointments for Next 60 Days Date Time Provider Location Dept Phone 10/06/2021 12:30 PM SURGICAL REGISTRATION 1 10/09/2021 8:45 AM LAB PORT/FLORES GALLAGHER 1 Mn CA Bldg [phone] 10/09/2021 9:45 AM GODFREY C[facility]TON [place] Bldg [phone] 10/09/2021 9:45 AM GODFREY OHARA [place] Bldg [phone] 10/09/2021 10:15 AM CHAIR 8 /MELANOMA/SARCOMA Mn CA Bldg [phone] 10/20/2021 11:30 AM TYRONE LISA Mn J Bldg [phone] 10/23/2021 8:40 AM MRI 6 RADIO MAIN Q (I-STAT/1.5T/3T) Mn Q Bldg [phone] 10/23/2021 9:[address] PREP MAIN CA Mn CA Bldg [phone] 10/23/2021 10:[address] MAIN CA Mn CA Bldg [phone] 10/23/2021 11:30 AM LAB PORT/[facility] MAIN CA 1 Mn CA Bldg [phone] 10/23/2021 1:30 PM KENNETH CHESTER Mn [place] Bldg [phone] 10/23/2021 1:30 PM GODFREY CLAYTON Mn CA Bldg [phone] 10/27/2021 11:30 AM PACC MAIN 2 Mn A Bldg [phone] 10/27/2021 12:30 PM ADMIT INTERVIEW A12 PSSC A Bldg 10/27/2021 1:00 PM LAB A15 MAIN Mn A Bldg [phone] 10/27/2021 1:30 PM EKG17 MAIN Mn A Bldg [phone] 11/01/2021 11:00 AM [facility] [phone] Interventions Made: Patient education/Medication counseling, Adherence counseling and Medication access issue resolved Pharmacist Recommendations Made Lab request/Therapeutic drug monitoring Care Coordination: None at this time Time spent on patient: 60-75 minutes Safia Carr RPh September 29, 2021 7:19 AM documented in this encounterKing'S Daughters Medical Center [place]07-22-2022 NoteOhio[facility]07-22-2022 NoteOhio[facility]07-21-2022 NoteOhio[facility]07-20-2022 NoteOhio[facility]07-19-2022 Note [facility]07-18-2022 NoteOhio[facility]07-18-2022 History of Present illness Narrative* Riccardo Hatfield PA-C - 09/22/2021 12:00 PM EDT Images from the original note were not included. [facility] [place] [facility] Department of Cardiovascular Medicine SECTION OF CLINICAL CARDIOLOGY OUTPATIENT VISIT DATE September 22, 2021 OUTPATIENT VISIT TYPE ESTABLISHED PRIMARY CARE PHYSICIAN: Daksha Turner ([facility]) [address] [place] [address] REFERRING PHYSICIAN: Angela Khan [address] [facility] [id number] CHIEF COMPLAINT: Established Pt Hospital Follow Up HISTORY OF PRESENT ILLNESS: Mr. Yanez is a 56 year old male who presents today for a cardiovascular medicine follow-up visit. Pt is an established pt of Dr. Black Pt has a past medical history of: 1. 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 Credit Card Interviewer: [facility] Transcribe Date/Time: Sep 02 2021 4:28P Dictated [...] with more than 50% of the total fyfz-eu-mfuy time of the visit in counseling / coordination of care. CONTACT INFORMATION: Riccardo Hatfield PA-C September 22, 2021 documented in this encounterKing'S Daughters Medical Center [place]07-15-2022 Miscellaneous Notes* Telephone Encounter - Rahul Knight RN - 09/19/2021 9:31 AM EDT IRB#: [id number][facility], Cyto-KIK; TRIAL (CYTO reductive surgery in Kidney cancer plus Immunotherapy (nivolumab) and targeted Kinase inhibition (cabozantinib) Pt called to report that he's been experiencing diarrhea (approx 6 episodes per day) accompanied bystomach pain, x 2 days. Instructed the pt to begin taking Imodium as needed, and to drink extra fluids to prevent dehydration. Pt verbalized understanding. Sent a follow up [employer] message to the pt.Also reached out to Dr. Chester to inform him of new symptoms, recommendations made to pt, and to inquire whether further action is needed. Will call pt back with any new instructions from Dr. Chester. Fazal Knight RN, BSN documented in this encounterKing'S Daughters Medical Center [place]07-12-2022 Miscellaneous Notes* Telephone Encounter - Rahul Knight [...] symptoms. [place] Sharma, RN documented in this encounterKing'S Daughters Medical Center [place]07-12-2022 Miscellaneous Notes* Telephone Encounter - Rahul Knight [...] Fazal Knight RN, BSN documented in this encounterKing'S Daughters Medical Center [place]07-07-2022 NoteOhiohealth [facility] Center07-07-2022 NoteOhiohealth [facility] Center07-07-2022 History of Present illness Narrative* Kenneth Chester MD - 09/11/2021 2:03 PM EDT Images from the original note were not included. [facility] Progress Note Oncology Clinic Patient name: Yefri [...] Abs Lymph 1.00 - 4.00 k/uL 1.12 [place]au% % 8.1 Abs [place] <0.87 k/uL 0.53 Eosin% % 0.5 Abs [...] Started treatment with cabo + nivo on [facility] 1820 on 08/08/2021. He has baseline [...] note. Kenneth Chester MD documented in this encounterKing'S Daughters Medical Center [place]07-07-2022 Nurse Note* Ariadne Wood RN - 09/11/2021 1:29 PM EDT Additional intake questions: Has the patient had fever, nausea, vomiting, diarrhea, constipation, fatigue for > 1 week? Yes, fatigue and SOB Does the patient have a decreased appetite? No Does patient want to see a Maple Products Supervisor? No (yes to any of above refer patient to schedulers for dietitian appointment) ) Does patient have any new or increased numbness or tingling of extremities? No Is patient interested in fertility information? No Does patient need any prescription refills? No Does patient have an advanced directive in place? No, Patient referred to Resource Center documented in this encounterKing'S Daughters Medical Center [place]07-07-2022 History of Present illness Narrative* Godfrey Clayton RN - 09/11/2021 1:17 PM EDT IRB#: [id number], [facility], Cyto-KIK; TRIAL (CYTO reductive surgery [...] chloride (KLOR-CON) 20 mEq packet Potassium Chloride* ([id number]) 20 MEQ PACKET Active 20 MEQ PO [...] information Godfrey Clayton RN documented in this encounterKing'S Daughters Medical Center [place]07-01-2022 Miscellaneous Notes* Telephone Encounter - Marysol Lane RN - 09/05/2021 4:07 PM EDT Called Yefri for more information regarding message received. Call back number given. * Telephone Encounter - Rakel Saleem - 09/05/2021 2:16 PM EDT Yefri Yanez is calling Kenneth Chester MD today regarding Lamination Builder - Other States that when patient was in the hospital Dr Khan prescribed Lobenos and states that is very costly. Asking for a generic or something different that is affordable. Patient has been identified by name and birthdate. Duration of symptoms: N/A Requesting response back: call at home [phone] (home) [phone] (cell) Rakel Sarmientoway September 05, 2021 documented in this encounterKing'S Daughters Medical Center [place]06-29-2022 NoteOhiohealth Grant Medical Center06-29-2022 NoteOhiohealth Grant Medical Center06-28-2022 NoteOhiohealth [facility] Center06-28-2022 NoteOhiohealth [facility] Center06-28-2022 Note [facility]06-28-2022 NoteOhio[facility] Center06-28-2022 History of Present illness Narrative* Godfrey Clayton RN - 09/02/2021 4:55 PM EDT IRB#: [id number], [facility]# [facility] 1820, Cyto-KIK; TRIAL (CYTO reductive surgery in Kidney cancer plus Immunotherapy (nivolumab) and targeted Kinase inhibition (cabozantinib) [facility]. Patient endorses increased [...] r/t nivo, likelyr/t heart failure, Action:referral to [facility] clinic, CXR, monitor Outcome:Changed to Grade [...] Outcome:ongoing Godfrey Clayton RN documented in this encounterKing'S Daughters Medical Center [place]06-28-2022 Nurse Note* Warren Garvin LPN - 09/02/2021 4:41 PM EDT [facility] Emergency Response Team Date of the Event: September 02, 2021 Time of the Event:1641 Select Floor / Area: [facility] - Clinic Reason/Chief Complaint for Emergency Call (Check all that apply): Respiratory: New onset difficulty breathing History of Events Prior to DANIEL Activation and any treatment administered prior to DANIEL Team arrival? PT presented to [facility] clinic with SOB for last week. [...] No Does patient want to see a Maple Products Supervisor? No (yes to any of above refer patient to schedulers for dietitian appointment) ) Does patient have any new or increased numbness or tingling of extremities? No Is patient interested in fertility information? No Does patient need any prescription refills? No Does patient have an advanced directive in place? No, Patient refused referral to Social Work or Resource Center documented in this encounterKing'S Daughters Medical Center [place]06-28-2022 NoteOhiohealth Grant Medical Center06-28-2022 NoteOhiohealth [facility] Center06-28-2022 History of Present illness Narrative* Sybil Skinner [...] 2021 TIME: 3:24 PM documented in this encounterKing'S Daughters Medical Center [place]06-28-2022 History of Present illness Narrative* Daksha Melo PA-C - 09/02/2021 2:05 PM EDT [facility] [place] (TRA) REQUESTING PROVIDER: Godfrey [...] No rash. LABS / TESTING while in [facility] clinic: Component Latest Ref Rng & [...] Abs Lymph 1.00 - 4.00 k/uL 1.42 [place]au% % 6.4 Abs [place] <0.87 k/uL 0.42 Eosin% % 0.3 Abs [...] 02, 2021 2:05 PM documented in this encounterKing'S Daughters [facility] Center [place]06-28-2022 History of Present illness Narrative* Barber Mtz, [...] 02, 2021 1:56 PM documented in this encounterKing'S Daughters Medical Center [place]06-28-2022 NoteOhiohealth [facility] Center06-27-2022 Miscellaneous Notes* Telephone Encounter - Adriana Hodge [...] the anaestheic including but not limited to [place], CVA, DVT, and PE, and the risks [...] proceed. Adriana Hodge MD documented in this encounterKing'S Daughters Medical Center [place]06-22-2022 NoteOhiohealth [facility] Center06-14-2022 NoteOhiohealth [facility] Center06-14-2022 History of Present illness Narrative* Godfrey Clayton, JOHN - 08/19/2021 2:17 PM EDT IRB#: [id number], [facility], Cyto-KIK; TRIAL (CYTO reductive surgery [...] chloride (KLOR-CON) 20 mEq packet Potassium Chloride* ([id number]) 20 MEQ PACKET Active 20 MEQ PO [...] information Godfrey Clayton RN documented in this encounterKing'S Daughters Medical [facility] [place]06-14-2022 NoteOhiohealth Grant Medical Center06-14-2022 NoteOhiohealth [facility] Center06-14-2022 Nurse Note* Ariadne Wood RN - 08/19/2021 11:33 AM EDT Reviewed and confirmed with patient that there were no changes in the the nursing assessment and vitals that were completed on August 19, 2021 during previous provider appointment. Ariadne Wood RN documented in this encounterKing'S [facility] [place]06-14-2022 History of Present illness Narrative* Godfrey Ohara APRN.BEATRICE - 08/19/2021 11:30 AM EDT Images from the original note were not included. [facility] Progress Note Oncology Clinic Patient name: Yefri [...] Patient presents today for C1D15 visit of [facility] 1820. Since last visit his BP has been elevated, his cabo was stopped on 08/18/21 and he saw cardiology prior to his oncology appointment today. Sales Operations Associate found that patient had never made changes [...] HISTORY Marital Status: Children: 6 biological Residence: [facility] Employment: [employer] Alcohol: Occasional Tobacco: Active cigar smoker MEDICATIONS: [...] Abs Lymph 1.00 - 4.00 k/uL 1.58 Juneau% % 8.1 Abs Juneau <0.87 k/uL 0.49 Eosin% % 2.5 Abs [...] Started treatment with cabo + nivo on [facility] 1820 on 08/08/2021. He has baseline [...] which included preparing to see the patient, [id number] patient care, completing clinical documentation, obtaining and/or [...] Ohara APRN.BEATRICE Research SCOTT documented in this encounterKing'S Daughters [facility] [place]06-14-2022 History of Present illness Narrative* Lalo Black MD - 08/19/2021 10:14 AM EDT Images from the original note were not included. [facility] [place] [facility] Department of Cardiovascular Medicine SECTION OF CLINICAL CARDIOLOGY OUTPATIENT VISIT DATE August 19, 2021 OUTPATIENT VISIT TYPE ESTABLISHED PRIMARY CARE PHYSICIAN: Daksha Turner ([facility]) [address] [place] [id number] REFERRING PHYSICIAN: Lalo Black [address] [facility] [address] CHIEF COMPLAINT: No chief complaint on file. HISTORY OF PRESENT ILLNESS: Mr. Yanez is a 56 year old male who presents today for a cardiovascular medicine follow-up visit. Patient was last time seen in the clinic on July 31, 2021. Patient has a history of clear-cell renal carcinoma with metastases to the lung.Currently patient is enrolled in clinical trial, see [facility], with Mati [planning C1 D1 on [...] fellow represents my interpretation of the study. Credit Card Interviewer: [email or web address] Transcribe Date/Time: Aug 17 2021 7:12P [...] INFORMATION: Lalo Black M.D, PhD, FRCPC, FACC Chemical Engineering Teacher at [employer] Associate Sprayer Automatic Spray Machine Internal Medicine Residency Sprayer Automatic Spray Machinewool sampler Education Internal Medicine Residency Sprayer Automatic Spray Machine of Consult Service Sprayer Automatic Spray Machine for Elective Students/Residents at [facility] Cardio-Oncology [facility] Espitia Department of Cardiovascular Medicine [facility] [place] [facility] [place] Desk [id number] [address] Office Office Appointments: [phone] This medical note has been dictated using voice recognition system. Grammatical and/or syntax errors may be present and therefore the note should be interpreted accordingly. Should you have any questions and/or concerns, please do not hesitate to contact my office. documented in this encounterKing'S Daughters Medical [facility] [place]06-13-2022 Miscellaneous Notes* Telephone Encounter - Radha Ceballos RN - 08/18/2021 2:51 PM EDT Good Afternoon Mr. Yanez, Thank you for sending us in your blood pressure readings. Dr. Black will address these readings tomorrow at your appointment. Looking forward to seeing you then! I hope you have a wonderful day! JOHN Garcia documented in this encounterKing'S Daughters Medical [facility] [place]06-13-2022 Miscellaneous Notes* Telephone Encounter - Godfrey Clayton RN - 08/18/2021 10:25 AM EDT IRB#: [id number], [facility], Cyto-KIK; TRIAL (CYTO reductive surgery [...] Outcome:Resolved Godfrey Clayton RN documented in this encounterKing'S Daughters Medical Center [place]06-13-2022 Miscellaneous Notes* Telephone Encounter - Godfrey Ohara APRN.CNP - 08/18/2021 9:43 AM EDT This encounter was opened in error. @[email or web address]@ documented in this encounterKing'S Daughters Medical Center [place]06-12-2022 NoteOhio[facility]06-12-2022 NoteOhiohealth [facility] Center06-08-2022 Miscellaneous Notes * Telephone Encounter - Godfrey Clayton RN - 08/13/2021 2:55 PM EDT IRB#: [id number], [facility], Cyto-KIK; TRIAL (CYTO reductive surgery in Kidney cancer plus Immunotherapy (nivolumab) and targeted Kinase inhibition (cabozantinib) Called patient to review recent blood pressure readings. Patient stated his blood pressure yesterday and today have been between 130s-140s/80s. Instructed patient to still follow up with his instructor trainer canine service with previous readings. Patient states of feeling well with no symptoms. Instructed patient to call with any new or worsening symptoms. Patient verbalized understanding. Godfrey Clayton RN documented in this encounterKing'S Daughters [facility] [place]06-07-2022 Miscellaneous Notes* Telephone Encounter - Godfrey Clayton RN - 08/12/2021 2:40 PM EDT IRB#: [id number], [facility]20, Cyto-KIK; TRIAL (CYTO reductive surgery in Kidney cancer plus Immunotherapy (nivolumab) and targeted Kinase inhibition (cabozantinib) Patient called to inform nurse of recent blood pressure readings. Patient reported that his blood pressure has been running between 140-150s/100s since last 08/09/2021. After consulting , instructed patient to follow up with his instructor trainer canine service to adjust blood pressure medications. This nurse updated instructor trainer canine service, Dr. Black. Patient denied having any chest pain, shortness of breath, dizziness, or heart palpations. Instructed patient to be evaluated by local ER if blood pressure continues to stay elevated or becomes symptomatic. Instructed patient to call for any new or worsening symptoms. Patient verbalized understanding. Godfrey Clayton RN documented in this encounterKing'S Daughters Medical [facility] [place]06-07-2022 Miscellaneous Notes* Telephone Encounter - Nettie Benjamin [...] EDT August 12, 2021 Patient Contact Number: [phone] Patient last seen within the last year: [...] days. Yes Wojciech Menendez documented in this encounterKing'S Daughters Medical Center [place]06-06-2022 Miscellaneous Notes* Telephone Encounter - Hermila Ruiz RN - 08/11/2021 12:32 PM EDT IRB#: [id number], [facility], Cyto-KIK; TRIAL (CYTO reductive surgery in Kidney cancer plus Immunotherapy (nivolumab) and targeted Kinase inhibition (cabozantinib) Called pt again to follow up. No answer. Left VM with contact info. Hermila Ruiz RN documented in this encounterKing'S Daughters [facility] [place]06-06-2022 Miscellaneous Notes* Telephone Encounter - Hermila Ruiz RN - 08/11/2021 10:09 AM EDT IRB#: [id number], [facility]20, Cyto-KIK; TRIAL (CYTO reductive surgery in Kidney cancer plus Immunotherapy (nivolumab) and targeted Kinase inhibition (cabozantinib) Cycle: 1 Week: 1 Phase: 2 Cohort: 2 Called pt to follow up on start of treatment with clinical trial. No answer. Left VM with contact info. Hermila Ruiz RN documented in this encounterKing'S Daughters Medical Center [place]06-03-2022 NoteOhiohealth [facility] Medical Center06-03-2022 NoteOhio[facility] Center06-03-2022 NoteOhio[facility] Center06-03-2022 History of Present illness Narrative* Godfrey Ohara APRN.BOOSTER ASSEMBLER - 08/08/2021 9:45 AM EDT Images from the original note were not included. [facility] Progress Note Oncology Clinic Patient name: Yefri Yanez : 1965 Date of Service: August 08, 2021 PCP: Jillian Maurer DO Referring Provider: Adriana Hodge MD. SUBJECTIVE CHIEF COMPLAINT: [facility] HPI: This is a 56 year old [...] Patient presents today for C1D1 visit of [facility] 1820 with cabo and nivo. He [...] HISTORY Marital Status: Children: 6 biological Residence: [facility] Employment: [employer] Alcohol: Occasional Tobacco: Active cigar smoker MEDICATIONS: [...] Abs Lymph 1.00 - 4.00 k/uL 1.61 Juneau% % 6.6 Abs [place] <0.87 k/uL 0.40 Eosin% % 0.7 Abs [...] start treatment with cabo + nivo on [facility] 1820 on 07/24/2021 - Start C1D1 of cabo + nivo today (08/08/2021) per [facility] 1820 - RTC per protocol HTN [...] which included preparing to see the patient, [id number] patient care, completing clinical documentation, obtaining and/or [...] Ohara APRN.BEATRICE Research SCOTT documented in this encounterKing'S Daughters Medical [facility] [place]06-03-2022 History of Present illness Narrative* Godfrey Clayton RN - 08/08/2021 9:45 AM EDT IRB#: [id number], [facility], Cyto-KIK; TRIAL (CYTO reductive surgery [...] chloride (KLOR-CON) 20 mEq packet Potassium Chloride* ([id number]) 20 MEQ PACKET Active 20 MEQ PO [...] Navigator Godfrey Clayton RN documented in this encounterKing'S Daughters Medical Center [place]06-03-2022 Nurse Note* Ariadne Wood RN - 08/08/2021 9:20 AM EDT Additional intake questions: Has the patient had fever, nausea, vomiting, diarrhea, constipation, fatigue for > 1 week? No Does the patient have a decreased appetite? No Does patient want to see a [employer] Supervisor? No (yes to any of above refer patient to schedulers for dietitian appointment) ) Does patient have any new or increased numbness or tingling of extremities? No Is patient interested in fertility information? No Does patient need any prescription refills? No Does patient have an advanced directive in place? No, Patient referred to Resource Center documented in this encounterKing'S Daughters Medical [facility] [place]06-01-2022 NoteOhiohealth [facility] Medical Center06-01-2022 History of Present illness Narrative* Godfrey Ohara APRN.CNP - 08/06/2021 3:37 PM EDT RECIST TUMOR MEASUREMENTS IRB #: [id number] Image Modality: CT Image Date: CT Chest from 07/21/2021. CT A/P from 08/06/2021 Date of Baseline Scan: CT Chest from 07/21/2021. CT A/P from 08/06/2021 Date of Comparison Scan: NA Research Nurse/Pager: Godfrey Ohara APRN.CNP [phone] Baseline Measurement Target Lesion Site Measurements: Baseline [...] reviewed and approved by Dr. Kenneth Ohara APRN.BOOSTER ASSEMBLER documented in this encounterKing'S Daughters Medical Center [place]06-01-2022 NoteOhiohealth [facility] Center06-01-2022 NoteOhiohealth [facility] Center06-01-2022 NoteOhio[facility] Center06-01-2022 NoteOhio[facility] Center06-01-2022 Note [facility]06-01-2022 History of Present illness Narrative* Godfrey Ohara APRN.CNP - 08/06/2021 9:45 AM EDT IRB#: [id number], [facility], Cyto-KIK; TRIAL (CYTO reductive surgery in Kidney cancer plus Immunotherapy (nivolumab) and targeted Kinase inhibition (cabozantinib) Phase: 2 Cohort: 2 Pt presents for Screening Visit of IRB# [id number] . Informed Consent signed on 07/15/2021, prior to anystudy related procedures being performed that are not SOC. PE completed by Godfrey Ohara APRN.BOOSTER ASSEMBLER. Was PE completed by a Fellow No [...] chloride (KLOR-CON) 20 mEq packet Potassium Chloride* ([id number]) 20 MEQ PACKET Active 20 MEQ PO [...] RTC on 08/07/2021 for Day 1 of [facility] 1819 Study. Patient expresses understanding to call with any questions or concerns in the interim and understanding of all instructions provided. Patient confirmed to have contact information for Research Nurse and Dr. Zhao, along with the 24 hour On- Call number for the On-Call Oncology Fellow ([phone]). Godfrey Ohara APRN.CNP * Godfrey Ohara APRN.CNP - 08/06/2021 9:45 AM EDT Images from the original note were not included. [facility] Progress Note Oncology Clinic Patient name: Yefri Yanez : 1965 Date of Service: August 06, 2021 PCP: Jillian Maurer DO Referring Provider: Adriana Hodge MD. SUBJECTIVE CHIEF COMPLAINT: [facility] HPI: This is a 56 year old [...] HISTORY Marital Status: Children: 6 biological Residence: [facility] Employment: [employer] Alcohol: Occasional Tobacco: Active cigar smoker MEDICATIONS: [...] Abs Lymph 1.00 - 4.00 k/uL 1.42 June[place]% % 8.2 Abs [place] <0.87 k/uL 0.50 Eosin% % 0.8 Abs [...] start treatment with cabo + nivo on [facility] 1820 on 07/24/2021 - We were planning to start C1D1 of [facility] 1820 on cabo and nivo 2 weeks ago, however his PCP had started him on an antibiotic and prednisone which made him ineligible. He presents today for repeat screening visit for [facility] 1820 . - RTC on C1D1 [...] which included preparing to see the patient, [id number] patient care, completing clinical documentation, obtaining and/or [...] Ohara APRN.BEATRICE Research SCOTT documented in this encounterKing'S [facility]aughters [facility] [place]06-01-2022 History of Present illness Narrative* Godfrey Clayton RN - 08/06/2021 9:35 AM EDT IRB#: [id number], [facility]20, Cyto-KIK; TRIAL (CYTO reductive surgery [...] note. Godfrey Clayton RN documented in this encounterKing'S Daughters [facility] [place]05-29-2022 Miscellaneous Notes* Telephone Encounter - Ramona Toney [...] In Department of CARDIOLOGY. documented in this encounterKing'S Daughters Medical Center [place]05-26-2022 NoteOhiohealth [facility] Center05-26-2022 History of Present illness Narrative* Lalo Black MD - 07/31/2021 1:20 PM EDT Images from the original note were not included. [facility] [place] [facility] Department of Cardiovascular Medicine SECTION OF CLINICAL CARDIOLOGY OUTPATIENT VISIT DATE July 31, 2021 OUTPATIENT VISIT TYPE ESTABLISHED PRIMARY CARE PHYSICIAN: Daksha Turner ([facility]) [address] [place] [address] REFERRING PHYSICIAN: Lalo Black [address] [facility] [address] CHIEF COMPLAINT: No chief complaint on file. HISTORY OF PRESENT ILLNESS: Mr. Yanez is a 56 year old male who presents today for a cardiovascular medicine follow-up visit. The first time he spoke with the patient was back on July 22, 2021. Patient has oncological and pathologically confirmed clear-cell renal carcinoma. Currently patient is enrolled in clinical trial, see [facility], with Josiah and gallito [planning C1 [...] that he is at least operating at [place] [employer] 2 in terms of functional [...] short axis) * Boucher Images stored in [place] Chest: * Lesion a - Bone, 9.4 cm x 5.7 cm mass in the anterolateral right chest wall arising from the right sixth rib, larger since the prior chest CT from 06/19/2021, (Series 4, Image 102) NON-TARGET LESIONS: No Credit Card Interviewer: DANITZA Transcribe Date/Time: Jul 21 2021 10:55A [...] forward. At this time he is at [place] [employer] class II in functional status [...] INFORMATION: Lalo Black M.D, PhD, FRCPC, FACC Chemical Engineering Teacher at [employer] Associate Sprayer Automatic Spray Machine Internal Medicine Residency Sprayer Automatic Spray Machinewool sampler Education Internal Medicine Residency Sprayer Automatic Spray Machine of Consult Service Cardio-Oncology Center M[facility] Espitia Department of Cardiovascular Medicine [facility] [place] [facility] [place] Desk [phone] [address] Office Office Appointments: [phone] This medical note has been dictated using voice recognition system. Grammatical and/or syntax errors may be present and therefore the note should be interpreted accordingly. Should you have any questions and/or concerns, please do not hesitate to contact my office. documented in this encounterKing'S Daughters [facility] [place]05-25-2022 Miscellaneous Notes* Telephone Encounter - Tayler Moss [...] In Department of CARDIOLOGY. documented in this encounterKing'S Daughters Medical Center [place]05-24-2022 Miscellaneous Notes* Telephone Encounter - Godfrey Clayton RN - 07/29/2021 4:39 PM EDT IRB#: [id number], [facility]# [facility], Cyto-KIK; TRIAL (CYTO reductive [...] understanding. Godfrey Clayton RN documented in this encounterKing'S Daughters [facility] [place]05-20-2022 Miscellaneous Notes* Telephone Encounter - Godfrey Clayton RN - 07/25/2021 2:58 PM EDT IRB#: [id number], [facility]# [facility] 1820, Cyto-KIK; TRIAL (CYTO reductive surgery [...] understanding. Godfrey Clayton RN documented in this encounterKing'S Daughters [facility] [place]05-20-2022 [facility]05-20-2022 History of Present illness Narrative* [facility] - 07/25/2021 10:36 AM EDTSummary: RECIST 1.1 Abstract for Addendum RESEARCH IRB #: [id number] TUMOR METRICS: RECIST 1.1 Baseline Measurement Research Nurse/Pager: America Clayton [phone] Date of Baseline Scan: 06/27/2021 Date of Comparison Scan: NA Addendum Please see Abstract in EPIC Dated: NA Rahul Bennett [id number] documented in this encounterKing'S Daughters [facility] [place]05-19-2022 Instructions* Patient Instructions* Godfrey Ohara APRN.CNP - 07/24/2021 3:33 PM EDT Please schedule as a first time treatment visit type. documented in this encounterKing'S Daughters Medical Center [place]05-19-2022 Miscellaneous Notes* Telephone Encounter - Godfrey Ohara APRN.CNP - 07/24/2021 3:29 PM EDT Called and spoke with patient. Nivolumab has been approved. Awaiting approval and delivery of cabo per SOC. Will schedule him to see myself on 08/01/2021 for C1D1 of cabo and nivo. Godfrey Ohara APRN.CNP Research SCOTT documented in this encounterKing'S Daughters Medical Center [place]05-19-2022 NoteOhiohealth [facility] Center05-19-2022 NoteOhiohealth [facility] Center05-19-2022 History of Present illness Narrative* Godfrey Ohara APRN.CNP - 07/24/2021 9:56 AM EDT Images from the original note were not included. [facility] Progress Note Oncology Clinic Patient name: Yefri Yanez : 1965 Date of Service: July 24, 2021 PCP: Jillian Maurer DO Referring Provider: Adriana Hodge MD. SUBJECTIVE CHIEF COMPLAINT: [facility] HPI: This is a 56 year old [...] HISTORY: Patient presents today for C1D1 of [facility] 1820 with cabo and nivo. He [...] HISTORY Marital Status: Children: 6 biological Residence: [facility] Employment: [employer] Alcohol: Occasional Tobacco: Active cigar smoker MEDICATIONS: [...] Abs Lymph 1.00 - 4.00 k/uL 2.16 [place]% % 6.8 Abs [place] <0.87 k/uL 0.79 Eosin% % 0.1 Abs [...] start treatment with cabo + nivo on [facility] 182 on 07/24/2021 - We were planning to start C1D1 of [facility] 1820 on cabo and nivo today. [...] which included preparing to see the patient, [id number] patient care, completing clinical documentation, obtaining and/or [...] Ohara APRN.BEATRICE Research SCOTT documented in this encounterKing'S Daughters [facility] [place]05-19-2022 History of Present illness Narrative* Godfrey Clayton RN - 07/24/2021 9:45 AM EDT IRB#: [id number], [facility]20, Cyto-KIK; TRIAL (CYTO reductive surgery [...] chloride (KLOR-CON) 20 mEq packet Potassium Chloride* ([id number]) 20 MEQ PACKET Active 20 MEQ PO [...] Navigator Godfrey Clayton RN documented in this encounterKing'S Daughters [facility] [place]05-18-2022 Miscellaneous Notes* Telephone Encounter - Godfrey Clayton [...] understanding. Godfrey Clayton RN documented in this encounterKing'S Daughters [facility] [place]05-17-2022 NoteOhio[facility]05-17-2022 History of Present illness Narrative* Lalo Black MD - 07/22/2021 1:51 PM EDT [facility] [place] Department of Cardiovascular Medicine TELEPHONE VISIT PROGRESS [...] patient is enrolling in a clinical trial, [facility]20, with chrystalo and kyao (planning [...] minutes Lalo Black MD documented in this encounterKing'S Daughters [facility] [place]05-16-2022 Miscellaneous Notes* Telephone Encounter - Zaynab Johnston [...] information for future reference. documented in this encounterKing'S Daughters Medical Center [place]05-16-2022 NoteOhio[facility] Center05-16-2022 NoteOhio[facility] Center05-16-2022 NoteOhio[facility] Center05-16-2022 History of Present illness Narrative* RT Mendez(R) [...] 2021 TIME: 9:09 AM documented in this encounterKing'S Daughters [facility] [place]05-16-2022 NoteOhio[facility]05-16-2022 History of Present illness Narrative* Liliam Ramirez [...] 2021 TIME: 9:05 AM documented in this encounterKing'S Daughters [facility] [place]05-16-2022 History of Present illness Narrative* Godfrey Clayton [...] INDEX Godfrey Clayton RN documented in this encounterKing'S Daughters [facility] [place]05-13-2022 NoteOhio[facility] Center05-13-2022 History of Present illness Narrative* Godfrey Ohara APRN.BOOSTER ASSEMBLER - 07/18/2021 12:46 PM EDT IRB#: [id number], [facility]# [facility] 3027 Phase: II Cohort: 2 Encounter for Eligibility of IRB# [id number] . Informed Consent signed on 07/14/2021, prior to any study related procedures being performed that are not SOC. PE completed by Godfrey Ohara APRN.BOOSTER ASSEMBLER. Was PE completed by a Fellow No [...] Cardiovascular disorders including: Congestive heart failure (CHF): [place] [employer] (NYHA) Class III (moderate) or Class IV (severe) at the time of screening. Patient denied on 07/15/2021. Not found on examination by KEYUR Mann.BOOSTER ASSEMBLER. Concurrent uncontrolled hypertension defined as sustained BP [...] on 07/15/2021 24. Active central nervous system (COTTON PICKER OPERATOR) metastases Patient denied on 07/15/2021. No metastases [...] chloride (KLOR-CON) 20 mEq packet Potassium Chloride* ([id number]) 20 MEQ PACKET Active 20 MEQ PO [...] RTC on 07/24/2021 for Day 1 of [facility]20 Study. Godfrey Ohara APRN.CNP documented in this encounterKing'S Daughters [facility] [place]05-10-2022 NoteOhio[facility]05-10-2022 NoteOhio[facility] Center05-10-2022 NoteOhio[facility] Center05-10-2022 NoteOhio[facility]05-09-2022 Note [facility]05-09-2022 NoteOhio[facility]05-09-2022 History of Present illness Narrative* Rahul Knight [...] as discussed with Dr. Kenneth Chester MD [place]-- . All study related questions have been addressed or answered at this time. Contact information for research nurse and HemOn fellow on-call for after hours contact given to patient. Patient verbalizes understanding of all aforementioned information and voluntarily agrees to proceed with this clinical trial. Consent willingly signed by patient and consenting nurse. Patient given copy of signed informed consent. Time: 1530 Godfrey Ohaar APRN, BOOSTER ASSEMBLER [place] Sharma, RN * Godfrey Ohara APRN.BEATRICE - 07/14/2021 3:55 PM EDT Saw patient today for RN consent visit for [facility]20. Wrote for Ativan 1 mg as needed prior to MRI Kidney and MRI brain. Godfrey Ohara APRN.CNP Research SCOTT documented in this encounterKing'S Daughters [facility] [place]05-09-2022 Nurse Note* Ariadne Wood RN - 07/14/2021 2:41 PM EDT Additional intake questions: Has the patient had fever, nausea, vomiting, diarrhea, constipation, fatigue for > 1 week? Yes, fatigue Does the patient have a decreased appetite? No Does patient want to see a [employer] Supervisor? No (yes to any of above refer patient to schedulers for dietitian appointment) ) Does patient have any new or increased numbness or tingling of extremities? No Is patient interested in fertility information? No Does patient need any prescription refills? No Does patient have an advanced directive in place? No, Patient referred to [facility] documented in [facility] encounter[facility] [place] Miscellaneous Notes* Telephone Encounter - Godfrey Clayton RN - 07/11/2021 4:28 PM EDT Cyto-KIK; TRIAL (CYTO reductive surgery in Kidney cancer plus Immunotherapy (nivolumab) and targeted Kinase inhibition (cabozantinib) This nurse called spouse, Primo, to inform her of patients upcoming appointment date, time and location. Encouraged spouse to call with any questions or concerns. Spouse verbalized understanding. Godfrey Clayton RN documented in this encounterKing'S [facility] [place]-06-2022 Miscellaneous Notes* Telephone Encounter - Godfrey Calyton RN - 07/11/2021 2:54 PM EDT Cyto-KIK; [...] understanding. Godfrey Clayton RN documented in this encounterKing'[facility] [place]05-03-2022 NoteOhio[facility] History of Present illness Narrative* Godfrey Clayton RN - 07/08/2021 3:51 PM EDT Informed Consent Presentation IRB# [id number] Title: [facility] 1820, Cyto-KIK; TRIAL (CYTO reductive surgery in Kidney cancer plus Immunotherapy (nivolumab) and targeted Kinase inhibition (cabozantinib) Consent expiration date 01/10/2022 Spoke with patient at the request of Dr. Kenneth Chester MD [place]-- . Treatment plan, including all testing, potential [...] 1500 Godfrey Clayton RN documented in this encounterKing[facility] [place]-02-2022 Miscellaneous Notes* Telephone Encounter - Godfrey Clayton [...] understanding. Godfrey Clayton RN documented in this encounterKing'[facility] [place]04-27-2022 NoteOhio[facility]04-27-2022 History of Present illness Narrative* Kenneth Chester MD - 07/02/2021 12:00 PM EDT Images from the original note were not included. [facility] Initial History and Physical Exam Oncology Clinic Patient name: eYfri Yanez : 1965 Date of Service: July [...] HISTORY Marital Status: Children: 6 biological Residence: [facility] Employment: [employer] Alcohol: Occasional Tobacco: Active cigar smoker MEDICATIONS: [...] Abs Lymph 1.00 - 4.00 k/uL 1.78 [place]% % 7.6 Abs [place] <0.87 k/uL 0.51 Eosin% % 0.3 Abs [...] about treatment paradigms and strategies such [facility]/nivo followed by nephrectomy. Will await biopsy prior to discussing next steps. Patient has our office contact information and knows how to reach us at any time with questions/concerns or if clinical condition changes. Kenneth Chester MD MA Associate Staff [facility] July 02, 2021 CC: Adriana Hodge MD documented in this encounterKing'S [facility] [place]04-27-2022 Nurse Note* Ariadne Wood RN - 07/02/2021 11:52 AM EDT Additional intake questions: Has the patient had fever, nausea, vomiting, diarrhea, constipation, fatigue for > 1 week? No Does the patient have a decreased appetite? No Does patient want to see a [employer] Supervisor? No (yes to any of above refer patient to schedulers for dietitian appointment) ) Does patient have any new or increased numbness or tingling of extremities? No Is patient interested in fertility information? No Does patient need any prescription refills? No Does patient have an advanced directive in place? No, Patient referred to [facility] documented in this encounterKing[facility] [place]04-26-2022 NoteOhio[facility]04-25-2022 NoteOhio[facility]04-25-2022 History of Present illness Narrative* RT Dimas(Damion) [...] 725 PATIENT DISCHARGED TO: Ambulatory patient, left [place] department area. A Diagnostic radioactive procedure has taken place, with no further precautions necessary other than routine body substance precautions. More information regarding radiation safety can be found usingthis link: [email or web address] SIGNATURE: RT Dimas(R) PATIENT NAME: Yefri Yanez DATE: June 30, 2021 TIME: 7:45 AM PAGER/CONTACT #: [phone] documented in this encounterKing'S [facility] [place]04-22-2022 NoteOhio[facility]04-22-2022 History of Present illness Narrative* TOÑO DuganR) [...] 2021 TIME: 1:57 PM documented in this encounterKing'S [facility] [place]04-19-2022 Miscellaneous Notes* Telephone Encounter - John Gtz [...] this procedure: low risk. Reference from F Client Services Director: [email or web address] STAFF SIGNATURE: John Gtz MD DATE: June 24, 2021 TIME: 8:32 AM * Telephone Encounter - Yandy Muñoz RN - 06/23/2021 4:44 PM EDT BX. COORDINATOR INFORMATION LAB RESULTS: No results found for: INR No results found for: APTT Platelet Count (k/uL) Date Value 06/20/2021 268 11/06/2019 288 Current Outpatient Medications Medication Sig potassium chloride (KLOR-CON) 20 mEq packet Potassium Chloride* ([id number]) 20 MEQ PACKET Active 20 MEQ PO [...] 4:26 PM EDT RADIOLOGY CALL CENTER INTAKE SUPERVISOR VARNISH: IRMA EVANS EXT: [id number] DATE: 06/23/2021 TIME: 4:27PM TRACKING #. [id number] REQUESTING PERSON: LILIAM PHONE/PAGER: [phone] REQUESTING STAFF: Adriana Hodge MD PHONE/PAGER: [phone] SPECIFICS OF THE REQUEST: (Please be as [...] for pathology (For example: send for ER, OK, HER2/silas or possible lymphoma send in RPMI [...] EVALUATE APPROPRIATENESS/FEASIBILITY OF THE REQUEST) IMAGING: OUTSIDE [facility] Films: Where is study now: UPLOADED IN PATIENTS CHART (If the imaging was obtained outside the [facility] system, then it needs to be submitted for review prior to approval.) Note to all persons requesting biopsies: All biopsy requests will be scheduled as quickly as possible, based on the clinical urgency, availability of appointment times, the need to hold anti-thrombolytic therapy (aspirin, blood thinners) and the patient s schedule, including the need for an available refrigerated company driver. If a percutaneous biopsy or drainage is not felt to be safe or an alternative method for establishing a diagnosis is possible, this will be discussed directly with the requesting physician. 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 [place] Residence:[place] Review of Systems: No CP, No SOB, no CVA, no TIA, No [place] No claudication Skin: Rash: denies Lump or mass: denies HEENT: Problems with hearing: denies Double vision or blurred vision: denies Difficulty swallowing: denies Neck: Mass or LN enlargement: denies Pain: denies Chest: SOB: denies Cough: denies Coughing blood: denies Hx pneumonia: denies CVS: Dyspnea on exertion: denies Chest pain: denies Palpitations: denies Hx heart disease, valvular disease: denies Hx W[place]: denies GI: Nausea or vomiting: denies Abd [...] which included preparing to see the patient, [id number] patient care, completing clinical documentation and counseling [...] 23, 2021 11:36 AM documented in this encounterKing'[facility] [place]04-18-2022 Miscellaneous Notes* Telephone Encounter - Dawit Urbina MD - 06/23/2021 8:48 AM EDT Spoke with Patient ID by Relayed to patient CBC and CMP without concern. Patient aware to follow up with Dr. Hodge at 11:00 AM today. Dawit Urbina MD documented in this encounterKing'S [facility] [place]04-15-[address]25-[address] History of Past illness Narrative* Problem Noted Date Resolved Date Essential hypertension, benign 06/30/2004 0 03/12/2008 ROUTINE MEDICAL EXAM 06/30/2004 11/26/2014 CHEST PAIN NOS 06/30/2004 11/26/2014 documented as of this encounter (statuses as of 06/23/2021) [address]25-2005 History of Past illness Narrative* Problem Noted Date Resolved Date Essential hypertension, benign 06/30/2004 0 03/12/2008 ROUTINE MEDICAL EXAM 06/30/2004 11/26/2014 CHEST PAIN NOS 06/30/2004 11/26/2014 documented as of this encounter (statuses as of 06/23/2021) [address]25-2005 History of Past illness Narrative* Problem Noted Date Resolved Date Essential hypertension, benign 06/30/2004 0 03/12/2008 ROUTINE MEDICAL EXAM 06/30/2004 11/26/2014 CHEST PAIN NOS 06/30/2004 11/26/2014 documented as of this encounter (statuses as of 06/24/2021) [address]25-2005 History of Past illness Narrative* Problem Noted Date Resolved Date Essential hypertension, benign 06/30/2004 0 03/12/2008 ROUTINE MEDICAL EXAM 06/30/2004 11/26/2014 CHEST PAIN NOS 06/30/2004 11/26/2014 documented as of this encounter (statuses as of 06/26/2021) [address]25-2005 History of Past illness Narrative* Problem Noted Date Resolved Date Essential hypertension, benign 06/30/2004 0 03/12/2008 ROUTINE MEDICAL EXAM 06/30/2004 11/26/2014 CHEST PAIN NOS 06/30/2004 11/26/2014 documented as of this encounter (statuses as of 06/28/2021) [address]25-2005 History of Past illness Narrative* Problem Noted Date Resolved Date Essential hypertension, benign 06/30/2004 0 03/12/2008 ROUTINE MEDICAL EXAM 06/30/2004 11/26/2014 CHEST PAIN NOS 06/30/2004 11/26/2014 documented as of this encounter (statuses as of 06/28/2021) [place] [address] History of Past illness Narrative* Problem Noted Date Resolved Date Essential hypertension, benign 06/30/2004 0 03/12/2008 ROUTINE MEDICAL EXAM 06/30/2004 11/26/2014 CHEST PAIN NOS 06/30/2004 11/26/2014 documented as of this encounter (statuses as of 07/01/2021) [address] History of Past illness Narrative* Problem Noted Date Resolved Date Essential hypertension, benign 06/30/2004 0 03/12/2008 ROUTINE MEDICAL EXAM 06/30/2004 11/26/2014 CHEST PAIN NOS 06/30/2004 11/26/2014 documented as of this encounter (statuses as of 07/01/2021) [address] History of Past illness Narrative* Problem Noted Date Resolved Date Essential hypertension, benign 06/30/2004 0 03/12/2008 ROUTINE MEDICAL EXAM 06/30/2004 11/26/2014 CHEST PAIN NOS 06/30/2004 11/26/2014 documented as of this encounter (statuses as of 07/04/2021) [address] History of Past illness Narrative* Problem Noted Date Resolved Date Essential hypertension, benign 06/30/2004 0 03/12/2008 ROUTINE MEDICAL EXAM 06/30/2004 11/26/2014 CHEST PAIN NOS 06/30/2004 11/26/2014 documented as of this encounter (statuses as of 07/07/2021) [address] History of Past illness Narrative* Problem Noted Date Resolved Date Essential hypertension, benign 06/30/2004 0 03/12/2008 ROUTINE MEDICAL EXAM 06/30/2004 11/26/2014 CHEST PAIN NOS 06/30/2004 11/26/2014 documented as of this encounter (statuses as of 07/08/2021) [address] History of Past illness Narrative* Problem Noted Date Resolved Date Essential hypertension, benign 06/30/2004 0 03/12/2008 ROUTINE MEDICAL EXAM 06/30/2004 11/26/2014 CHEST PAIN NOS 06/30/2004 11/26/2014 documented as of this encounter (statuses as of 07/11/2021) [address] History of Past illness Narrative* Problem Noted Date Resolved Date Essential hypertension, benign 06/30/2004 0 03/12/2008 ROUTINE MEDICAL EXAM 06/30/2004 11/26/2014 CHEST PAIN NOS 06/30/2004 11/26/2014 documented as of this encounter (statuses as of 07/11/2021) [address] History of Past illness Narrative* Problem Noted Date Resolved Date Essential hypertension, benign 06/30/2004 0 03/12/2008 ROUTINE MEDICAL EXAM 06/30/2004 11/26/2014 CHEST PAIN NOS 06/30/2004 11/26/2014 documented as of this encounter (statuses as of 07/11/2021) [address] History of Past illness Narrative* Problem Noted Date Resolved Date Essential hypertension, benign 06/30/2004 0 03/12/2008 ROUTINE MEDICAL EXAM 06/30/2004 11/26/2014 CHEST PAIN NOS 06/30/2004 11/26/2014 documented as of this encounter (statuses as of 07/14/2021) [address] History of Past illness Narrative* Problem Noted Date Resolved Date Essential hypertension, benign 06/30/2004 0 03/12/2008 ROUTINE MEDICAL EXAM 06/30/2004 11/26/2014 CHEST PAIN NOS 06/30/2004 11/26/2014 documented as of this encounter (statuses as of 07/15/2021) [address] History of Past illness Narrative* Problem Noted Date Resolved Date Essential hypertension, benign 06/30/2004 0 03/12/2008 ROUTINE MEDICAL EXAM 06/30/2004 11/26/2014 CHEST PAIN NOS 06/30/2004 11/26/2014 documented as of this encounter (statuses as of 07/15/2021) [address] History of Past illness Narrative* Problem Noted Date Resolved Date Essential hypertension, benign 06/30/2004 0 03/12/2008 ROUTINE MEDICAL EXAM 06/30/2004 11/26/2014 CHEST PAIN NOS 06/30/2004 11/26/2014 documented as of this encounter (statuses as of 07/21/2021) [address] History of Past illness Narrative* Problem Noted Date Resolved Date Essential hypertension, benign 06/30/2004 0 03/12/2008 ROUTINE MEDICAL EXAM 06/30/2004 11/26/2014 CHEST PAIN NOS 06/30/2004 11/26/2014 documented as of this encounter (statuses as of 07/21/2021) [address] History of Past illness Narrative* Problem Noted Date Resolved Date Essential hypertension, benign 06/30/2004 0 03/12/2008 ROUTINE MEDICAL EXAM 06/30/2004 11/26/2014 CHEST PAIN NOS 06/30/2004 11/26/2014 documented as of this encounter (statuses as of 07/21/2021) [address] History of Past illness Narrative* Problem Noted Date Resolved Date Essential hypertension, benign 06/30/2004 0 03/12/2008 ROUTINE MEDICAL EXAM 06/30/2004 11/26/2014 CHEST PAIN NOS 06/30/2004 11/26/2014 documented as of this encounter (statuses as of 07/22/2021) [address] History of Past illness Narrative* Problem Noted Date Resolved Date Essential hypertension, benign 06/30/2004 0 03/12/2008 ROUTINE MEDICAL EXAM 06/30/2004 11/26/2014 CHEST PAIN NOS 06/30/2004 11/26/2014 documented as of this encounter (statuses as of 07/22/2021) [address] History of Past illness Narrative* Problem Noted Date Resolved Date Essential hypertension, benign 06/30/2004 0 03/12/2008 ROUTINE MEDICAL EXAM 06/30/2004 11/26/2014 CHEST PAIN NOS 06/30/2004 11/26/2014 documented as of this encounter (statuses as of 07/23/2021) [address] History of Past illness Narrative* Problem Noted Date Resolved Date Essential hypertension, benign 06/30/2004 0 03/12/2008 ROUTINE MEDICAL EXAM 06/30/2004 11/26/2014 CHEST PAIN NOS 06/30/2004 11/26/2014 documented as of this encounter (statuses as of 07/24/2021) [address] History of Past illness Narrative* Problem Noted Date Resolved Date Essential hypertension, benign 06/30/2004 0 03/12/2008 ROUTINE MEDICAL EXAM 06/30/2004 11/26/2014 CHEST PAIN NOS 06/30/2004 11/26/2014 documented as of this encounter (statuses as of 07/24/2021) [address] History of Past illness Narrative* Problem Noted Date Resolved Date Essential hypertension, benign 06/30/2004 0 03/12/2008 ROUTINE MEDICAL EXAM 06/30/2004 11/26/2014 CHEST PAIN NOS 06/30/2004 11/26/2014 documented as of this encounter (statuses as of 07/25/2021) [address] History of Past illness Narrative* Problem Noted Date Resolved Date Essential hypertension, benign 06/30/2004 0 03/12/2008 ROUTINE MEDICAL EXAM 06/30/2004 11/26/2014 CHEST PAIN NOS 06/30/2004 11/26/2014 documented as of this encounter (statuses as of 07/25/2021) [address] History of Past illness Narrative* Problem Noted Date Resolved Date Essential hypertension, benign 06/30/2004 0 03/12/2008 ROUTINE MEDICAL EXAM 06/30/2004 11/26/2014 CHEST PAIN NOS 06/30/2004 11/26/2014 documented as of this encounter (statuses as of 07/28/2021) [address] History of Past illness Narrative* Problem Noted Date Resolved Date Essential hypertension, benign 06/30/2004 0 03/12/2008 ROUTINE MEDICAL EXAM 06/30/2004 11/26/2014 CHEST PAIN NOS 06/30/2004 11/26/2014 documented as of this encounter (statuses as of 07/29/2021) [address] History of Past illness Narrative* Problem Noted Date Resolved Date Essential hypertension, benign 06/30/2004 0 03/12/2008 ROUTINE MEDICAL EXAM 06/30/2004 11/26/2014 CHEST PAIN NOS 06/30/2004 11/26/2014 documented as of this encounter (statuses as of 07/29/2021) [address] History of Past illness Narrative* Problem Noted Date Resolved Date Essential hypertension, benign 06/30/2004 0 03/12/2008 ROUTINE MEDICAL EXAM 06/30/2004 11/26/2014 CHEST PAIN NOS 06/30/2004 11/26/2014 documented as of this encounter (statuses as of 07/30/2021) [address] History of Past illness Narrative* Problem Noted Date Resolved Date Essential hypertension, benign 06/30/2004 0 03/12/2008 ROUTINE MEDICAL EXAM 06/30/2004 11/26/2014 CHEST PAIN NOS 06/30/2004 11/26/2014 documented as of this encounter (statuses as of 07/31/2021) [place] [address] History of Past illness Narrative* Problem Noted Date Resolved Date Essential hypertension, benign 06/30/2004 0 03/12/2008 ROUTINE MEDICAL EXAM 06/30/2004 11/26/2014 CHEST PAIN NOS 06/30/2004 11/26/2014 documented as of this encounter (statuses as of 08/03/2021) [address] History of Past illness Narrative* Problem Noted Date Resolved Date Essential hypertension, benign 06/30/2004 0 03/12/2008 ROUTINE MEDICAL EXAM 06/30/2004 11/26/2014 CHEST PAIN NOS 06/30/2004 11/26/2014 documented as of this encounter (statuses as of 08/06/2021) [address] History of Past illness Narrative* Problem Noted Date Resolved Date Essential hypertension, benign 06/30/2004 0 03/12/2008 ROUTINE MEDICAL EXAM 06/30/2004 11/26/2014 CHEST PAIN NOS 06/30/2004 11/26/2014 documented as of this encounter (statuses as of 08/06/2021) [address] History of Past illness Narrative* Problem Noted Date Resolved Date Essential hypertension, benign 06/30/2004 0 03/12/2008 ROUTINE MEDICAL EXAM 06/30/2004 11/26/2014 CHEST PAIN NOS 06/30/2004 11/26/2014 documented as of this encounter (statuses as of 08/07/2021) [address] History of Past illness Narrative* Problem Noted Date Resolved Date Essential hypertension, benign 06/30/2004 0 03/12/2008 ROUTINE MEDICAL EXAM 06/30/2004 11/26/2014 CHEST PAIN NOS 06/30/2004 11/26/2014 documented as of this encounter (statuses as of 08/08/2021) [address] History of Past illness Narrative* Problem Noted Date Resolved Date Essential hypertension, benign 06/30/2004 0 03/12/2008 ROUTINE MEDICAL EXAM 06/30/2004 11/26/2014 CHEST PAIN NOS 06/30/2004 11/26/2014 documented as of this encounter (statuses as of 08/08/2021) [address] History of Past illness Narrative* Problem Noted Date Resolved Date Essential hypertension, benign 06/30/2004 0 03/12/2008 ROUTINE MEDICAL EXAM 06/30/2004 11/26/2014 CHEST PAIN NOS 06/30/2004 11/26/2014 documented as of this encounter (statuses as of 08/08/2021) [address] History of Past illness Narrative* Problem Noted Date Resolved Date Essential hypertension, benign 06/30/2004 0 03/12/2008 ROUTINE MEDICAL EXAM 06/30/2004 11/26/2014 CHEST PAIN NOS 06/30/2004 11/26/2014 documented as of this encounter (statuses as of 08/08/2021) [address] History of Past illness Narrative* Problem Noted Date Resolved Date Essential hypertension, benign 06/30/2004 0 03/12/2008 ROUTINE MEDICAL EXAM 06/30/2004 11/26/2014 CHEST PAIN NOS 06/30/2004 11/26/2014 documented as of this encounter (statuses as of 08/11/2021) [address] History of Past illness Narrative* Problem Noted Date Resolved Date Essential hypertension, benign 06/30/2004 0 03/12/2008 ROUTINE MEDICAL EXAM 06/30/2004 11/26/2014 CHEST PAIN NOS 06/30/2004 11/26/2014 documented as of this encounter (statuses as of 08/12/2021) [address] History of Past illness Narrative* Problem Noted Date Resolved Date Essential hypertension, benign 06/30/2004 0 03/12/2008 ROUTINE MEDICAL EXAM 06/30/2004 11/26/2014 CHEST PAIN NOS 06/30/2004 11/26/2014 documented as of this encounter (statuses as of 08/12/2021) [address] History of Past illness Narrative* Problem Noted Date Resolved Date Essential hypertension, benign 06/30/2004 0 03/12/2008 ROUTINE MEDICAL EXAM 06/30/2004 11/26/2014 CHEST PAIN NOS 06/30/2004 11/26/2014 documented as of this encounter (statuses as of 08/13/2021) [address] History of Past illness Narrative* Problem Noted Date Resolved Date Essential hypertension, benign 06/30/2004 0 03/12/2008 ROUTINE MEDICAL EXAM 06/30/2004 11/26/2014 CHEST PAIN NOS 06/30/2004 11/26/2014 documented as of this encounter (statuses as of 08/18/2021) [address] History of Past illness Narrative* Problem Noted Date Resolved Date Essential hypertension, benign 06/30/2004 0 03/12/2008 ROUTINE MEDICAL EXAM 06/30/2004 11/26/2014 CHEST PAIN NOS 06/30/2004 11/26/2014 documented as of this encounter (statuses as of 08/18/2021) [address] History of Past illness Narrative* Problem Noted Date Resolved Date Essential hypertension, benign 06/30/2004 0 03/12/2008 ROUTINE MEDICAL EXAM 06/30/2004 11/26/2014 CHEST PAIN NOS 06/30/2004 11/26/2014 documented as of this encounter (statuses as of 08/18/2021) [address] History of Past illness Narrative* Problem Noted Date Resolved Date Essential hypertension, benign 06/30/2004 0 03/12/2008 ROUTINE MEDICAL EXAM 06/30/2004 11/26/2014 CHEST PAIN NOS 06/30/2004 11/26/2014 documented as of this encounter (statuses as of 08/19/2021) [address] History of Past illness Narrative* Problem Noted Date Resolved Date Essential hypertension, benign 06/30/2004 0 03/12/2008 ROUTINE MEDICAL EXAM 06/30/2004 11/26/2014 CHEST PAIN NOS 06/30/2004 11/26/2014 documented as of this encounter (statuses as of 08/19/2021) [address] History of Past illness Narrative* Problem Noted Date Resolved Date Essential hypertension, benign 06/30/2004 0 03/12/2008 ROUTINE MEDICAL EXAM 06/30/2004 11/26/2014 CHEST PAIN NOS 06/30/2004 11/26/2014 documented as of this encounter (statuses as of 08/20/2021) [address] History of Past illness Narrative* Problem Noted Date Resolved Date Essential hypertension, benign 06/30/2004 0 03/12/2008 ROUTINE MEDICAL EXAM 06/30/2004 11/26/2014 CHEST PAIN NOS 06/30/2004 11/26/2014 documented as of this encounter (statuses as of 08/21/2021) [address] History of Past illness Narrative* Problem Noted Date Resolved Date Essential hypertension, benign 06/30/2004 0 03/12/2008 ROUTINE MEDICAL EXAM 06/30/2004 11/26/2014 CHEST PAIN NOS 06/30/2004 11/26/2014 documented as of this encounter (statuses as of 08/27/2021) [address] History of Past illness Narrative* Problem Noted Date Resolved Date Essential hypertension, benign 06/30/2004 0 03/12/2008 ROUTINE MEDICAL EXAM 06/30/2004 11/26/2014 CHEST PAIN NOS 06/30/2004 11/26/2014 documented as of this encounter (statuses as of 08/28/2021) [address] History of Past illness Narrative* Problem Noted Date Resolved Date Essential hypertension, benign 06/30/2004 0 03/12/2008 ROUTINE MEDICAL EXAM 06/30/2004 11/26/2014 CHEST PAIN NOS 06/30/2004 11/26/2014 documented as of this encounter (statuses as of 09/01/2021) [address] History of Past illness Narrative* Problem Noted Date Resolved Date Essential hypertension, benign 06/30/2004 0 03/12/2008 ROUTINE MEDICAL EXAM 06/30/2004 11/26/2014 CHEST PAIN NOS 06/30/2004 11/26/2014 documented as of this encounter (statuses as of 09/02/2021) [address] History of Past illness Narrative* Problem Noted Date Resolved Date Essential hypertension, benign 06/30/2004 0 03/12/2008 ROUTINE MEDICAL EXAM 06/30/2004 11/26/2014 CHEST PAIN NOS 06/30/2004 11/26/2014 documented as of this encounter (statuses as of 09/03/2021) [address] History of Past illness Narrative* Problem Noted Date Resolved Date Essential hypertension, benign 06/30/2004 0 03/12/2008 ROUTINE MEDICAL EXAM 06/30/2004 11/26/2014 CHEST PAIN NOS 06/30/2004 11/26/2014 documented as of this encounter (statuses as of 09/03/2021) [address] History of Past illness Narrative* Problem Noted Date Resolved Date Essential hypertension, benign 06/30/2004 0 03/12/2008 ROUTINE MEDICAL EXAM 06/30/2004 11/26/2014 CHEST PAIN NOS 06/30/2004 11/26/2014 documented as of this encounter (statuses as of 09/03/2021) [address] History of Past illness Narrative* Problem Noted Date Resolved Date Essential hypertension, benign 06/30/2004 0 03/12/2008 ROUTINE MEDICAL EXAM 06/30/2004 11/26/2014 CHEST PAIN NOS 06/30/2004 11/26/2014 documented as of this encounter (statuses as of 09/11/2021) [address] History of Past illness Narrative* Problem Noted Date Resolved Date Essential hypertension, benign 06/30/2004 0 03/12/2008 ROUTINE MEDICAL EXAM 06/30/2004 11/26/2014 CHEST PAIN NOS 06/30/2004 11/26/2014 documented as of this encounter (statuses as of 09/11/2021) [address] History of Past illness Narrative* Problem Noted Date Resolved Date Essential hypertension, benign 06/30/2004 0 03/12/2008 ROUTINE MEDICAL EXAM 06/30/2004 11/26/2014 CHEST PAIN NOS 06/30/2004 11/26/2014 documented as of this encounter (statuses as of 09/16/2021) [address] History of Past illness Narrative* Problem Noted Date Resolved Date Essential hypertension, benign 06/30/2004 0 03/12/2008 ROUTINE MEDICAL EXAM 06/30/2004 11/26/2014 CHEST PAIN NOS 06/30/2004 11/26/2014 documented as of this encounter (statuses as of 09/17/2021) [address]25-2005 History of Past illness Narrative* Problem Noted Date Resolved Date Essential hypertension, benign 06/30/2004 0 03/12/2008 ROUTINE MEDICAL EXAM 06/30/2004 11/26/2014 CHEST PAIN NOS 06/30/2004 11/26/2014 documented as of this encounter (statuses as of 09/19/2021) [address] History of Past illness Narrative* Problem Noted Date Resolved Date Essential hypertension, benign 06/30/2004 0 03/12/2008 ROUTINE MEDICAL EXAM 06/30/2004 11/26/2014 CHEST PAIN NOS 06/30/2004 11/26/2014 documented as of this encounter (statuses as of 09/22/2021) [address] History of Past illness Narrative* Problem Noted Date Resolved Date Essential hypertension, benign 06/30/2004 0 03/12/2008 ROUTINE MEDICAL EXAM 06/30/2004 11/26/2014 CHEST PAIN NOS 06/30/2004 11/26/2014 documented as of this encounter (statuses as of 09/29/2021) [address] History of Past illness Narrative* Problem Noted Date Resolved Date Essential hypertension, benign 06/30/2004 0 03/12/2008 ROUTINE MEDICAL EXAM 06/30/2004 11/26/2014 CHEST PAIN NOS 06/30/2004 11/26/2014 documented as of this encounter (statuses as of 09/29/2021) [address] History of Past illness Narrative* Problem Noted Date Resolved Date Essential hypertension, benign 06/30/2004 0 03/12/2008 ROUTINE MEDICAL EXAM 06/30/2004 11/26/2014 CHEST PAIN NOS 06/30/2004 11/26/2014 documented as of this encounter (statuses as of 09/29/2021) [address] History of Past illness Narrative* Problem Noted Date Resolved Date Essential hypertension, benign 06/30/2004 0 03/12/2008 ROUTINE MEDICAL EXAM 06/30/2004 11/26/2014 CHEST PAIN NOS 06/30/2004 11/26/2014 documented as of this encounter (statuses as of 10/09/2021) [address] History of Past illness Narrative* Problem Noted Date Resolved Date Essential hypertension, benign 06/30/2004 0 03/12/2008 ROUTINE MEDICAL EXAM 06/30/2004 11/26/2014 CHEST PAIN NOS 06/30/2004 11/26/2014 documented as of this encounter (statuses as of 10/13/2021) [address] History of Past illness Narrative* Problem Noted Date Resolved Date Essential hypertension, benign 06/30/2004 0 03/12/2008 ROUTINE MEDICAL EXAM 06/30/2004 11/26/2014 CHEST PAIN NOS 06/30/2004 11/26/2014 documented as of this encounter (statuses as of 10/14/2021) [address] History of Past illness Narrative* Problem Noted Date Resolved Date Essential hypertension, benign 06/30/2004 0 03/12/2008 ROUTINE MEDICAL EXAM 06/30/2004 11/26/2014 CHEST PAIN NOS 06/30/2004 11/26/2014 documented as of this encounter (statuses as of 10/21/2021) [address] History of Past illness Narrative* Problem Noted Date Resolved Date Essential hypertension, benign 06/30/2004 0 03/12/2008 ROUTINE MEDICAL EXAM 06/30/2004 11/26/2014 CHEST PAIN NOS 06/30/2004 11/26/2014 documented as of this encounter (statuses as of 10/21/2021) [address] History of Past illness Narrative* Problem Noted Date Resolved Date Essential hypertension, benign 06/30/2004 0 03/12/2008 ROUTINE MEDICAL EXAM 06/30/2004 11/26/2014 CHEST PAIN NOS 06/30/2004 11/26/2014 documented as of this encounter (statuses as of 10/27/2021) [address] History of Past illness Narrative* Problem Noted Date Resolved Date Essential hypertension, benign 06/30/2004 0 03/12/2008 ROUTINE MEDICAL EXAM 06/30/2004 11/26/2014 CHEST PAIN NOS 06/30/2004 11/26/2014 documented as of this encounter (statuses as of 10/27/2021) [address] History of Past illness Narrative* Problem Noted Date Resolved Date Essential hypertension, benign 06/30/2004 0 03/12/2008 ROUTINE MEDICAL EXAM 06/30/2004 11/26/2014 CHEST PAIN NOS 06/30/2004 11/26/2014 documented as of this encounter (statuses as of 11/03/2021) [address]25-2005 History of Past illness Narrative* Problem Noted Date Resolved Date Essential hypertension, benign 06/30/2004 0 03/12/2008 ROUTINE MEDICAL EXAM 06/30/2004 11/26/2014 CHEST PAIN NOS 06/30/2004 11/26/2014 documented as of this encounter (statuses as of 11/04/2021) [address] History of Past illness Narrative* Problem Noted Date Resolved Date Essential hypertension, benign 06/30/2004 0 03/12/2008 ROUTINE MEDICAL EXAM 06/30/2004 11/26/2014 CHEST PAIN NOS 06/30/2004 11/26/2014 documented as of this encounter (statuses as of 11/06/2021) [address] History of Past illness Narrative* Problem Noted Date Resolved Date Essential hypertension, benign 06/30/2004 0 03/12/2008 ROUTINE MEDICAL EXAM 06/30/2004 11/26/2014 CHEST PAIN NOS 06/30/2004 11/26/2014 documented as of this encounter (statuses as of 11/17/2021) [address] History of Past illness Narrative* Problem Noted Date Resolved Date Essential hypertension, benign 06/30/2004 0 03/12/2008 ROUTINE MEDICAL EXAM 06/30/2004 11/26/2014 CHEST PAIN NOS 06/30/2004 11/26/2014 documented as of this encounter (statuses as of 11/19/2021) [address] History of Past illness Narrative* Problem Noted Date Resolved Date Essential hypertension, benign 06/30/2004 0 03/12/2008 ROUTINE MEDICAL EXAM 06/30/2004 11/26/2014 CHEST PAIN NOS 06/30/2004 11/26/2014 documented as of this encounter (statuses as of 11/21/2021) [address] History of Past illness Narrative* Problem Noted Date Resolved Date Essential hypertension, benign 06/30/2004 0 03/12/2008 ROUTINE MEDICAL EXAM 06/30/2004 11/26/2014 CHEST PAIN NOS 06/30/2004 11/26/2014 documented as of this encounter (statuses as of 11/21/2021) [address] History of Past illness Narrative* Problem Noted Date Resolved Date Essential hypertension, benign 06/30/2004 0 03/12/2008 ROUTINE MEDICAL EXAM 06/30/2004 11/26/2014 CHEST PAIN NOS 06/30/2004 11/26/2014 documented as of this encounter (statuses as of 11/25/2021) [address] History of Past illness Narrative* Problem Noted Date Resolved Date Essential hypertension, benign 06/30/2004 0 03/12/2008 ROUTINE MEDICAL EXAM 06/30/2004 11/26/2014 CHEST PAIN NOS 06/30/2004 11/26/2014 documented as of this encounter (statuses as of 11/29/2021) [address] History of Past illness Narrative* Problem Noted Date Resolved Date Essential hypertension, benign 06/30/2004 0 03/12/2008 ROUTINE MEDICAL EXAM 06/30/2004 11/26/2014 CHEST PAIN NOS 06/30/2004 11/26/2014 documented as of this encounter (statuses as of 12/09/2021) [address] History of Past illness Narrative* Problem Noted Date Resolved Date Essential hypertension, benign 06/30/2004 0 03/12/2008 ROUTINE MEDICAL EXAM 06/30/2004 11/26/2014 CHEST PAIN NOS 06/30/2004 11/26/2014 documented as of this encounter (statuses as of 12/17/2021) [address] History of Past illness Narrative* Problem Noted Date Resolved Date Essential hypertension, benign 06/30/2004 0 03/12/2008 ROUTINE MEDICAL EXAM 06/30/2004 11/26/2014 CHEST PAIN NOS 06/30/2004 11/26/2014 documented as of this encounter (statuses as of 12/27/2021) [address] History of Past illness Narrative* Problem Noted Date Resolved Date Essential hypertension, benign 06/30/2004 0 03/12/2008 ROUTINE MEDICAL EXAM 06/30/2004 11/26/2014 CHEST PAIN NOS 06/30/2004 11/26/2014 documented as of this encounter (statuses as of 12/28/2021) [address] History of Past illness Narrative* Problem Noted Date Resolved Date Essential hypertension, benign 06/30/2004 0 03/12/2008 ROUTINE MEDICAL EXAM 06/30/2004 11/26/2014 CHEST PAIN NOS 06/30/2004 11/26/2014 documented as of this encounter (statuses as of 12/30/2021) [address]-2005 History of Past illness Narrative* Problem Noted Date Resolved Date Essential hypertension, benign 06/30/2004 0 03/12/2008 ROUTINE MEDICAL EXAM 06/30/2004 11/26/2014 CHEST PAIN NOS 06/30/2004 11/26/2014 documented as of this encounter (statuses as of 12/30/2021) [address]25-2005 History of Past illness Narrative* Problem Noted Date Resolved Date Essential hypertension, benign 06/30/2004 0 03/12/2008 ROUTINE MEDICAL EXAM 06/30/2004 11/26/2014 CHEST PAIN NOS 06/30/2004 11/26/2014 documented as of this encounter (statuses as of 01/07/2022) [address]-2005 History of Past illness Narrative* Problem Noted Date Resolved Date Essential hypertension, benign 06/30/2004 0 03/12/2008 ROUTINE MEDICAL EXAM 06/30/2004 11/26/2014 CHEST PAIN NOS 06/30/2004 11/26/2014 documented as of this encounter (statuses as of 01/20/2022) [address] History of Past illness Narrative* Problem Noted Date Resolved Date Essential hypertension, benign 06/30/2004 0 03/12/2008 ROUTINE MEDICAL EXAM 06/30/2004 11/26/2014 CHEST PAIN NOS 06/30/2004 11/26/2014 documented as of this encounter (statuses as of 01/22/2022) [address] History of Past illness Narrative* Problem Noted Date Resolved Date Essential hypertension, benign 06/30/2004 0 03/12/2008 ROUTINE MEDICAL EXAM 06/30/2004 11/26/2014 CHEST PAIN NOS 06/30/2004 11/26/2014 documented as of this encounter (statuses as of 01/26/2022) [address] History of Past illness Narrative* Problem Noted Date Resolved Date Essential hypertension, benign 06/30/2004 0 03/12/2008 ROUTINE MEDICAL EXAM 06/30/2004 11/26/2014 CHEST PAIN NOS 06/30/2004 11/26/2014 documented as of this encounter (statuses as of 02/12/2022) [address] History of Past illness Narrative* Problem Noted Date Resolved Date Essential hypertension, benign 06/30/2004 0 03/12/2008 ROUTINE MEDICAL EXAM 06/30/2004 11/26/2014 CHEST PAIN NOS 06/30/2004 11/26/2014 documented as of this encounter (statuses as of 02/13/2022) [address] History of Past illness Narrative* Problem Noted Date Resolved Date Essential hypertension, benign 06/30/2004 0 03/12/2008 ROUTINE MEDICAL EXAM 06/30/2004 11/26/2014 CHEST PAIN NOS 06/30/2004 11/26/2014 documented as of this encounter (statuses as of 02/16/2022) [address] History of Past illness Narrative* Problem Noted Date Resolved Date Essential hypertension, benign 06/30/2004 0 03/12/2008 ROUTINE MEDICAL EXAM 06/30/2004 11/26/2014 CHEST PAIN NOS 06/30/2004 11/26/2014 documented as of this encounter (statuses as of 02/17/2022) [address] History of Past illness Narrative* Problem Noted Date Resolved Date Essential hypertension, benign 06/30/2004 0 03/12/2008 ROUTINE MEDICAL EXAM 06/30/2004 11/26/2014 CHEST PAIN NOS 06/30/2004 11/26/2014 documented as of this encounter (statuses as of 02/17/2022) [address] History of Past illness Narrative* Problem Noted Date Resolved Date Essential hypertension, benign 06/30/2004 0 03/12/2008 ROUTINE MEDICAL EXAM 06/30/2004 11/26/2014 CHEST PAIN NOS 06/30/2004 11/26/2014 documented as of this encounter (statuses as of 03/13/2022) [address] History of Past illness Narrative* Problem Noted Date Resolved Date Essential hypertension, benign 06/30/2004 0 03/12/2008 ROUTINE MEDICAL EXAM 06/30/2004 11/26/2014 CHEST PAIN NOS 06/30/2004 11/26/2014 documented as of this encounter (statuses as of 03/13/2022) [address] History of Past illness Narrative* Problem Noted Date Resolved Date Essential hypertension, benign 06/30/2004 0 03/12/2008 ROUTINE MEDICAL EXAM 06/30/2004 11/26/2014 CHEST PAIN NOS 06/30/2004 11/26/2014 documented as of this encounter (statuses as of 03/17/2022) [address] History of Past illness Narrative* Problem Noted Date Resolved Date Essential hypertension, benign 06/30/2004 0 03/12/2008 ROUTINE MEDICAL EXAM 06/30/2004 11/26/2014 CHEST PAIN NOS 06/30/2004 11/26/2014 documented as of this encounter (statuses as of 03/17/2022) [address] History of Past illness Narrative* Problem Noted Date Resolved Date Essential hypertension, benign 06/30/2004 0 03/12/2008 ROUTINE MEDICAL EXAM 06/30/2004 11/26/2014 CHEST PAIN NOS 06/30/2004 11/26/2014 documented as of this encounter (statuses as of 03/23/2022) [address] History of Past illness Narrative* Problem Noted Date Resolved Date Essential hypertension, benign 06/30/2004 0 03/12/2008 ROUTINE MEDICAL EXAM 06/30/2004 11/26/2014 CHEST PAIN NOS 06/30/2004 11/26/2014 documented as of this encounter (statuses as of 03/24/2022) [place] [address] History of Past illness Narrative* Problem Noted Date Resolved Date Essential hypertension, benign 06/30/2004 0 03/12/2008 ROUTINE MEDICAL EXAM 06/30/2004 11/26/2014 CHEST PAIN NOS 06/30/2004 11/26/2014 documented as of this encounter (statuses as of 03/25/2022) [place] [address] History of Past illness Narrative* Problem Noted Date Resolved Date Essential hypertension, benign 06/30/2004 0 03/12/2008 ROUTINE MEDICAL EXAM 06/30/2004 11/26/2014 CHEST PAIN NOS 06/30/2004 11/26/2014 documented as of this encounter (statuses as of 03/27/2022) [place] [address] History of Past illness Narrative* Problem Noted Date Resolved Date Essential hypertension, benign 06/30/2004 0 03/12/2008 ROUTINE MEDICAL EXAM 06/30/2004 11/26/2014 CHEST PAIN NOS 06/30/2004 11/26/2014 documented as of this encounter (statuses as of 04/02/2022) [place] [address] History of Past illness Narrative* Problem Noted Date Resolved Date Essential hypertension, benign 06/30/2004 0 03/12/2008 ROUTINE MEDICAL EXAM 06/30/2004 11/26/2014 CHEST PAIN NOS 06/30/2004 11/26/2014 documented as of this encounter (statuses as of 04/09/2022) [facility] April 16, 2022 1:56pm Note Date/Time April 16, 2022 1 :41pm [facility] Medical Records Department [address] [place] [address] Discharge Summary 04/16/22 1341 MR#: [id number] Acct: [id number] Name: YEFRI YANEZ Rep #:[id number] : 1965 57 From: Carol Chiu DO PCP: Dr. Jose Ramon Turner MD Status: [id number] Prov[facility] Date of Admission: 04/13/22 Date [...] Hospital Course: Mr. Yanez is a 57-year-old -Macanese male with a history of metastaticclear-cell carcinoma of the right kidney who is status post nephrectomy and radiation and now undergoing chemotherapy who presented to the emergency department at [facility] with a 2-week history of progressively worsening [...] last year by Dr. Aravind Lopez at [facility]. He doeshave metastatic disease to the bone. 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 He request to see Dr. Gaona however [...] distress and well nourished Constitutional Narrative: Obese, -Macanese, sitting up on the edge of the [...] Self Care Charges/Coding Visit Charges Inpatient E&M: 17122 Disch Hosp >30min 04/16/22 1355 <Electronically signed by Carol Chiu DO> Cosigner Signature (if applicable): CC: Dr. Jose Ramon Turner MD; Dr. Carol Chiu DO~ Signed [facility] Work Phone: Discharge summary Author Carol Chiu [facility] December 17, 2022 12:20pm Note Date/Time December 17, 2022 1 2:11pm [facility] Medical Records Department [address] [place] [id number] Discharge Summary 12/17/22 1210 MR#: [id number] Acct: [id number] Name: YEFRI YANEZ Rep #:[id number] : [id number] 57 From: Carol Chiu DO PCP: Dr. Jose Ramon Turner MD Status: ADM IN [facility] Prov[facility] Date of Admission: 12/16/22 Date [...] Hospital Course: Mr. Yanez is a 57-year-old -Macanese male who presented to the emergency department at [facility] on 12/15/2022 with worsening shortness of breath. Patient told the admitting physician that he is supposed to be wearing his oxygen all the time at home however he is only wearing it whenneeded. His oxygen was written for by Dr. Yanez and is to be 3 L [id number]. He does have a history of systolic [...] failure--> home prescription is for 3 L [id number] Atrial fibrillation Hyperlipidemia GERD NIMCO Tobacco abuse Physical Exam Const no apparent distress and well nourished; Negative for average body habitus or healthy appearing Constitutional Narrative: Obese, -Macanese, male, lying in bed resting comfortably but [...] 71.5 H, Lymph % (Auto) 16.9 L, [place] % (Auto) 9.8, Eos % (Auto) 1.0, [...] Self Care Charges/Coding Visit Charges Inpatient E&M: 06805 Disch Hosp >30min 12/17/22 1220 <Electronically signed by Carol Chiu DO> Cosigner Signature (if applicable): CC: Dr. Jose Ramon Turner MD; Dr. Carol Chiu DO; Dr. Cipriano Yanez MD~ Signed [facility] Work Phone: Evaluation note* Diagnosis Onset Date Resolution Status Mass of chest wall Active [facility] Work Phone: Evaluation note* Diagnosis Malignant neoplasm of kidney, unspecified laterality (HCC)- Primary Malignant neoplasm of kidney excluding renal pelvis, unspecified laterality (HCC) [facility] Diagnosis Mass of right chest wall- Primary [facility]* Diagnosis Screening for genitourinary condition Screening for other and unspecified genitourinary condition Malignant neoplasm of kidney, unspecified laterality (HCC) [facility]* Diagnosis Malignant neoplasm of kidney, unspecified laterality (HCC) Malignant neoplasm of kidney excluding renal pelvis, unspecified laterality (HCC) Malignant neoplasm of kidney, unspecified laterality (HCC) [facility]* Diagnosis Malignant neoplasm of kidney, unspecified laterality (HCC) Malignant neoplasm of kidney excluding renal pelvis, unspecified laterality (HCC) [facility]* Diagnosis Malignant neoplasm of kidney, unspecified laterality (HCC) Malignant neoplasm of kidney excluding renal pelvis, unspecified laterality (HCC) Chest wall mass Swelling, mass, or lump in chest documented [facility]* Diagnosis Malignant neoplasm of kidney excluding renal pelvis, unspecified laterality (HCC)- Primary [facility]* Diagnosis Malignant neoplasm of kidney excluding renal pelvis, unspecified laterality (HCC) [facility]* Diagnosis Malignant neoplasm of kidney excluding renal pelvis, unspecified laterality (HCC)- Primary Renal cell carcinoma, unspecified laterality (HCC) [facility]* Diagnosis Malignant neoplasm of right kidney, except renal pelvis (HCC)- Primary Malignant neoplasm of kidney, except pelvis [facility]* Diagnosis Anxiety- Primary Anxiety state, unspecified [facility]* Diagnosis Malignant neoplasm of right kidney, except renal pelvis (HCC) Malignant neoplasm of kidney, except pelvis [facility]* Diagnosis Malignant neoplasm of kidney excluding renal pelvis, unspecified laterality (HCC)- Primary [facility]* Diagnosis Malignant neoplasm of right kidney, except renal pelvis (HCC) Malignant neoplasm of kidney, except pelvis Renal cell carcinoma, unspecified laterality (HCC) [facility]* Diagnosis Malignant neoplasm of kidney excluding renal pelvis, unspecified laterality (HCC) Renal cell carcinoma, unspecified laterality (HCC) documented in this encounter [facility] noteNo assessment information availableWAvita [facility] Work Phone: Evaluation note* Diagnosis Nonrheumatic mitral valve regurgitation- Primary Cardiomyopathy, nonischemic (HCC) Other primary cardiomyopathies documented [facility] this encounter [facility]* Diagnosis Malignant neoplasm of kidney excluding renal pelvis, unspecified laterality (HCC)- Primary Metastatic renal cell carcinoma, unspecified laterality (HCC) documented [facility] encounter [facility]* Diagnosis Renal cell carcinoma, unspecified laterality (HCC)- Primary [facility] in this encounter [facility]* Diagnosis Malignant neoplasm of kidney excluding renal pelvis, unspecified laterality (HCC) [facility]* Diagnosis Renal cell carcinoma of right kidney (HCC)- Primary [facility] this encounter [facility]* Diagnosis Nonrheumatic mitral valve regurgitation- Primary Nonrheumatic mitral valve regurgitation documented in this encounter [facility]* Diagnosis Renal cell carcinoma, unspecified laterality (HCC)- Primary Hypertension, unspecified type documented in this encounter [facility]* Diagnosis Renal cell carcinoma of right kidney (HCC)- Primary [facility] this [facility]* Diagnosis Malignant neoplasm of right kidney, except renal pelvis (HCC) Malignant neoplasm of kidney, except pelvis documented in this encounter [facility]* Diagnosis Renal cell carcinoma, unspecified laterality (HCC)- Primary documented in this encounter [facility]* Diagnosis Renal cell carcinoma of right kidney (HCC)- Primary documented in this encounter [facility]* Diagnosis Renal cell carcinoma of right kidney (HCC)- Primary [facility] in this encounter [facility]* Diagnosis Other specified disorders of kidney and ureter documented in this encounter [facility]* Diagnosis OPENED IN ERROR- Primary To allow closing an encounter opened in error (used in SmartSet) documented in this encounter [facility] note* Diagnosis Pedal edema- Primary Edema Essential hypertension Unspecified essential hypertension Coronary artery disease involving jamul coronary artery of jamul heart without angina pectoris Disturbance in sleep behavior Sleep disturbance, unspecified [facility] Diagnosis Renal cell carcinoma, unspecified laterality (HCC)- Primary Hypertension, unspecified type documented [facility] this [facility] Diagnosis Renal cell carcinoma, unspecified laterality (HCC)- Primary documented in this [facility]* Diagnosis Malignant neoplasm of kidney excluding renal pelvis, unspecified laterality (HCC) documented in this [facility] Diagnosis Malignant neoplasm of right kidney, except renal pelvis (HCC)- Primary Malignant neoplasm of kidney, except pelvis documented [facility]* Diagnosis SOB (shortness of breath)- Primary Shortness of breath Encounter for screening for COVID-19 Renal mass, right Unspecified disorder of kidney and ureter documented [facility]* Diagnosis SOB (shortness of breath) Shortness of breath Encounter for screening for COVID-19 Renal mass, right Unspecified disorder of kidney and ureter [facility]* Diagnosis SOB (shortness of breath) Shortness of breath Encounter for screening for COVID-19 Renal mass, right Unspecified disorder of kidney and ureter documented [facility] Diagnosis Renal cell carcinoma of right kidney (HCC)- Primary Encounter for screening for COVID-19 Renal mass, right Unspecified disorder of kidney and ureter documented [facility] this [facility]* Diagnosis Metastatic renal cell carcinoma, unspecified laterality (HCC) Pneumonitis Pneumonia, organism unspecified Atrial fibrillation, unspecified type (HCC) Hypertension, unspecified type Encounter for screening for COVID-19 Renal mass, right Unspecified disorder of kidney and ureter documented [facility] this [facility]* Diagnosis Paroxysmal atrial fibrillation (HCC)- Primary Atrial fibrillation Mitral valve insufficiency, unspecified etiology New onset a-fib (HCC) Atrial fibrillation Essential hypertension Unspecified essential hypertension Mixed hyperlipidemia 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) Encounter for screening for COVID-19 Renal mass, right Unspecified disorder of kidney and ureter documented [facility] this [facility] Diagnosis Paroxysmal atrial fibrillation (HCC)- Primary Atrial fibrillation Encounter for screening for COVID-19 Renal mass, right Unspecified disorder of kidney and ureter documented [facility] this [facility]* Diagnosis Renal cell carcinoma of right kidney (HCC)- Primary Atrial fibrillation, unspecified type (HCC) Encounter for screening for COVID-19 Renal mass, right Unspecified disorder of kidney and ureter [facility] Diagnosis Renal cell carcinoma of right kidney (HCC)- Primary Encounter for screening for COVID-19 Renal mass, right Unspecified disorder of kidney and ureter [facility] Diagnosis Preoperative examination- Primary Preoperative examination, [...] Other abnormal glucose Coronary artery disease involving jamul coronary artery of jamul heart, unspecified whether angina present Encounter for screening for COVID-19 Renal mass, right Unspecified disorder of kidney and ureter [facility] Diagnosis Metastatic renal cell carcinoma, unspecified laterality (HCC)- Primary [facility]* Diagnosis Malignant neoplasm of right kidney, except renal pelvis (HCC) Malignant neoplasm of kidney, except pelvis documented in this encounter [facility] note* Diagnosis Onset Date Resolution Status Atrial fibrillation with RVR acute Hypoxemia acute Systolic CHF, acute acute Acute exacerbation of CHF (congestive heart failure) [facility] Work Phone: Evaluation note* Diagnosis Renal cell carcinoma of right kidney (HCC)- Primary documented in this encounter [facility] note* Diagnosis Renal cell carcinoma of right kidney (HCC)- Primary [facility]* Diagnosis Renal cell carcinoma of right kidney (HCC) [facility]* Diagnosis Screening for genitourinary condition Screening for other and unspecified genitourinary condition documented in this encounter [facility] note* Cardiovascular: Regular, rate and rhythm, no [...] induration. Appropriately TTP.Psychological: Appropriate mood and behavior [facility] Diagnosis Renal cell carcinoma of right kidney metastatic to other site (HCC)- Primary Paroxysmal atrial fibrillation (HCC)- Primary Atrial fibrillation Nonrheumatic mitral valve regurgitation Acute decompensated heart failure (HCC) Congestive heart failure, unspecified Essential hypertension Unspecified essential hypertension Tobacco use disorder NIMCO (obstructive sleep apnea) Obstructive sleep apnea (adult) (pediatric) documented [facility]* Diagnosis Paroxysmal atrial fibrillation (HCC)- Primary Atrial fibrillation Nonrheumatic mitral valve regurgitation Acute decompensated heart failure (HCC) Congestive heart failure, unspecified Essential hypertension Unspecified essential hypertension Tobacco use disorder NIMCO (obstructive sleep apnea) Obstructive sleep apnea (adult) (pediatric) documented in this encounter [facility] note* Diagnosis Metastatic renal cell carcinoma, unspecified laterality (HCC)- Primary documented in this encounter [facility] note* Diagnosis Renal cell carcinoma of right kidney (HCC)- Primary documented in this encounter [facility] note* Diagnosis Renal cell carcinoma of right kidney (HCC)- Primary documented in this encounter [facility] note* Diagnosis Renal cell carcinoma of right kidney (HCC)- Primary documented in this encounter [facility] note* Diagnosis Malignant neoplasm of right kidney, except renal pelvis (HCC)- Primary Malignant neoplasm of kidney, except pelvis documented in this encounter [facility] note* Diagnosis Onset Date Resolution Status Acute exacerbation of CHF (congestive heart failure) [facility] Work Phone: evaluation note* Diagnosis Onset Date Resolution Status Elevated serum creatinine [place] Elevated troponin I level [place] Hypoxemia acute Systolic CHF, acute acute Acute exacerbation of CHF (congestive heart failure) [facility] Work Phone: evaluation note* Diagnosis Onset Date Resolution Status Acute exacerbation of CHF (congestive heart failure) resolved Hypoxemia resolved Systolic CHF, acute resolved [facility] Work Phone: Evaluation note* Diagnosis Onset Date Resolution Status Acute exacerbation of CHF (congestive heart failure) resolved Hypoxemia resolved Systolic CHF, acute resolved CHF (congestive heart failure) acute Dyspnea acute [facility] Work Phone: Evaluation note* Diagnosis Onset Date Resolution Status Acute exacerbation of CHF (congestive heart failure) resolved Hypoxemia resolved Systolic CHF, acute resolved CHF (congestive heart failure) acute Dyspnea acute Thrush acute Hypertension [facility] Work Phone: Evaluation note* Diagnosis Onset Date Resolution Status Acute exacerbation of CHF (congestive heart failure) resolved Hypoxemia resolved Systolic CHF, acute resolved Thrush acute CHF (congestive heart failure) resolved Dyspnea resolved Cancer acute Renal failure acute CHF (congestive heart failure) resolved 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 Dyspnea acute [facility] Work Phone: Evaluation note* Diagnosis [...] chronic Metastatic renal cell carcinoma to bone [facility] Work Phone: Evaluation note* Diagnosis Onset [...] carcinoma to bone chronic Renal cell cancer [facility] Work Phone: Evaluation note* Diagnosis Onset [...] chronic systolic heart failure chronic Chronic a-fib [facility] Work Phone: Evaluation note* Diagnosis Onset Date Resolution Status Renal failure acute CHF (congestive heart failure) resolved Acute on chronic renal insufficiency resolved Acute on chronic systolic heart failure resolved Acute respiratory insufficiency resolved Acute systolic heart failure resolved Hemoptysis resolved Shortness of breath resolved [facility] Work Phone: Evaluation note* Diagnosis Onset Date Resolution Status Acute on chronic renal insufficiency resolved Acute on chronic systolic heart failure resolved Acute respiratory insufficiency resolved Acute systolic heart failure resolved Hemoptysis resolved Shortness of breath resolved [facility] Work Phone: Evaluation note* Diagnosis Onset Date Resolution Status 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 Renal cell cancer [facility] Work Phone: Evaluation note* Diagnosis Pre-op [...] Other abnormal glucose Coronary artery disease involving jamul coronary artery of jamul heart, unspecified whether angina present Acute decompensated heart failure (HCC) Congestive heart failure, unspecified Paroxysmal atrial fibrillation (HCC) Atrial fibrillation documented in this [facility] Author Dr. Camacho [facility] April 14, 2022 12:43am Note Date/Time April 14, 2022 1 2:24am [facility] Medical Records Department [address] [place] [address] H&P Exam - Hospitalist 04/13/22 2334 MR#: [id number] Acct: [id number] Name: YEFRI YANEZ Rep #:[id number] : 1965 57 From: Dangelo Camacho MD [...] 79.4 H, Lymph % (Auto) 12.7 L, [place] % (Auto) 7.1, Eos % (Auto) 0.0, [...] 21:56 EST Reading Location ID and State: [facility] / [place] Tel , Service support , Assessment & [...] is subtherapeutic. Charges/Coding Visit Charges Inpatient E&M: 23601 Init Hosp L3 04/14/22 0043 <Electronically signed by Dangelo Camacho MD> Cosigner Signature (if applicable): CC: Dr. Jose Ramon Turner MD; Dr. Dangelo Camacho MD~ Signed [facility] Work Phone: History and physical note Author Dr. Lu [facility] June 28, 2022 12:52am Note Date/Time June 28, 2022 12: 20am [facility] Medical Records Department [address] [place] [address] H&P Exam - Hospitalist 06/28/22 0007 MR#: [id number] Acct: [id number] Name: YEFRI YANEZ Rep #:[id number] : 1965 57 From: Estelita Lu MD PCP: Dr. Jose Ramon Turner MD Status: [facility] - General General Date of Admission: 06/28/22 Date of Service: 06/28/22 Chief Complaint: Dyspnea, chest pain, wheezing, cough, recent incorrect Rx bumex. HPI Narrative The patient is a 57 y/o M w/ PMHx: Obesity, NIMCO on CPAP, PAF s/p prior cardioversion on coumadin, COPD, HTN, HLD, GERD, Metastatic renal CA s/p R nephrectomy, Tobacco use who presents to the [facility] ED on 06/27/22 with history of worsening [...] 75.4 H, Lymph % (Auto) 16.8 L, [place] % (Auto) 6.0, Eos % (Auto) 0.5, [...] nephrectomy, Tobacco use who presents to the [facility] ED on 06/27/22 with history of worsening [...] spine 12/2021, 02/06/2022 right radical nephrectomy at [facility], CT scan on 03/26/2022 showed [...] 75 minutes. Charges/Coding Visit Charges Inpatient E&M: 82505 Init Hosp L3 Procedures Hospitalists Procedures: 00879 Advncd Care Plan 30 Min 06/28/22 0052 <Electronically signed by Estelita Lu MD> Cosigner Signature (if applicable): CC: Dr. Estelita Lu MD; Dr. Jose Ramon Turner MD~ Signed [facility] Work Phone: History of Present illness Narrative* [...] between urology, medical oncology, radiation oncology at [facility] was local therapy to metastatic sites and cytoreductive nephrectomy. * 12/08/2021-echo with EF 35%, LV and RV enlargement and hypokinesis * 12/26/2021-patient completed radiation to chest wall and L4 lesion * Patient has remained on cabo * Patient was scheduled for nephrectomy with Dr. Adriana Hodge, due to insurance issues patient could not be operated on at [facility], [place]. * 01/19/2022-patient scheduled for laparoscopic nephrectomy 02/03 * 01/20/2022-patient presented [facility] with shortness of breath * 01/27/2022-patient presented to [facility] with persistence of subjective dyspnea, expiratory wheezing * 01/29/2022-patient represented to [facility] with chest tightness and shortness of [...] fatigue. Appetite is normal. Normal bowel function. [id number] SJW 400 DO Work Phone: Hospital Discharge [...] you do not already have it.[facility] Work Phone: [facility] (narrative)* Diagnostic Procedure Only (Routine) - Closed Specialty Diagnoses / Procedures [facility] Referred To Contact MOLECULAR & FUNCTIONAL IMAGING Diagnoses Malignant neoplasm of kidney, unspecified laterality (HCC) Malignant neoplasm of kidney excluding renal pelvis, unspecified laterality (HCC) Procedures NM BONE WHOLE BODY BONE &/JOINT IMAGING WHOLE BODY Adriana Hodge MD [address] [place] [address] Molecular & Functional Imaging [address] [place] [address] Referral ID Status Reason Start Date Expiration Date V isits Requested Visits Authorized [id number] Closed Auto-Generate d Referral 06/26/2021 08/10/2021 2 2 [facility] for referral (narrative)* Outpatient Procedure (Routine) - Authorized Specialty Diagnoses / Procedures [facility] Referred To Contact [facility] Diagnoses Malignant neoplasm of right kidney, except renal pelvis (HCC) Procedures ECHO ECHO TTHRC R-T 2D W/WOM-MODE COMPL SPEC&COLR D Stephany Ceballos PA-C [address] [place] [address] [facility] [place] [address] [place] [address] Referral ID Status Reason Start Date Expiration Date Visits Requested Visits Authorized [id number] Authorized Auto-Generat ed Referral 07/11/2021 07/11/2022 1 1 * Outpatient Procedure (Routine) - Authorized Specialty Diagnoses / Procedures [facility] Referred To Contact [facility] Diagnoses Malignant neoplasm of right kidney, except renal pelvis (HCC) Procedures ECG COMPLETE ECG ROUTINE ECG W/LEAST 12 LDS W/I&R Stephany Ceballos PA-C [address] [place] [address] [facility] [place] [id number] Referral ID Status Reason Start Date Expiration Date Visits Requested Visits Authorized [id number] Authorized Auto-Generat ed Referral 07/11/2021 07/11/2022 1 1 [facility] for referral (narrative)* Reason for Referral: impaired mobility, gait training, impaired cognition/safety awareness [facility] for referral (narrative)* Outpatient Procedure (Routine) - Denied Specialty Diagnoses / Procedures Referred By Sujatha vasquez Referred To Contact [facility] [place] Diagnoses Acute decompensated heart failure (HCC) Paroxysmal atrial fibrillation (HCC) Procedures ECHO LIMITED ECHO TRANSTHORAC R-T 2D W/WO M-MODE REC COMP Sayra Tello MD [address] [place] [address] [place] [phone] Referral ID Status Reason Start Date Expiration Date V isits Requested Visits Authorized [id number] Denied Auto-Generate d Referral 02/16/2022 02/16/2023 1 0 [facility] for referral (narrative)* Diagnostic Procedure Only (Routine) - Authorized Specialty Diagnoses / Procedures Referred By Sujatha t Referred To Contact MOLECULAR & FUNCTIONAL IMAGING Diagnoses Renal cell carcinoma of right kidney (HCC) Procedures NM BONE WHOLE BODY BONE &/JOINT IMAGING WHOLE BODY Haylee Wilburn MD [address] [place] [address] Molecular & Functional Imaging [address] [place] [address] Referral ID Status Reason Start Date Expiration Date Visits Requested Visits Authorized [id number] Authorized Auto-Generat ed Referral 03/11/2022 04/10/2023 1 1 * MRI/CT (Routine) - Authorized Specialty Diagnoses / Procedures Referred By [place] t Referred To Contact CT IMAGING Diagnoses Renal cell carcinoma of right kidney (HCC) Procedures CT CHEST W IVCON DIAGNOSTIC COMPUTED TOMOGRAPHY THORAX W/CONTRAST Haylee Wilburn MD [address] [place] [address] Ct Imaging Referral ID Status Reason Start Date Expiration Date Visits Requested Visits Authorized [id number] Authorized Auto-Generat ed Referral 03/11/2022 04/10/2023 1 1 * MRI/CT (Routine) - Authorized Specialty Diagnoses / Procedures Referred By Sujatha vasquez Referred To Contact CT IMAGING Diagnoses Renal cell carcinoma of right kidney (HCC) Procedures CT ABD/PEL W IVCON CT ABD & PELVIS W/CONTRAST Haylee Wilburn MD [address] [place] [address] Ct Imaging Referral ID Status Reason Start Date Expiration Date Visits Requested Visits Authorized [id number] Authorized Auto-Generat ed Referral 03/11/2022 04/26/2022 1 1 [facility] for referral (narrative)* Outpatient Procedure (Routine) - Closed Specialty Diagnoses / Procedures Referred By Sujatha vasquez Referred To Contact [facility] Diagnoses Acute decompensated heart failure (HCC) Paroxysmal atrial fibrillation (HCC) Procedures ECHO LIMITED ECHO TRANSTHORAC R-T 2D W/WO M-MODE REC COMP Sayra Tello MD [address] , [address] [place] [address] [facility] [address] [place] [address] Referral ID Status Reason Start Date Expiration Date V isits Requested Visits Authorized [id number] Closed Patient Cleared - INN Insurance Found 02/19/2022 03/07/2022 1 1 [facility] for referral (narrative)No reason for referral information [facility] Narrative* Diagnostic Procedure Only (Routine) - Closed Specialty Diagnoses / Procedures Referred By Sujatha vasquez Referred To Contact MOLECULAR & FUNCTIONAL IMAGING Diagnoses Malignant neoplasm of kidney, unspecified laterality (HCC) Malignant neoplasm of kidney excluding renal pelvis, unspecified laterality (HCC) Procedures NM BONE WHOLE BODY BONE &/JOINT IMAGING WHOLE BODY Adriana Hodge MD [address] [place] [address] [facility] [address] [place] [address] Referral ID Status Reason Start Date Expiration Date V isits Requested Visits Authorized [id number] Closed Auto-Generate d Referral 06/26/2021 08/10/2021 2 2 [facility] for visit Narrative* Auth/Cert Specialty Diagnoses / Procedures [facility] Referred To Contact Diagnoses Nonrheumatic mitral valve regurgitation Procedures CATH PLMT L HRT & ARTS W/NJX & ANGIO IMG S&I PRQ TRLUML CORONARY STENT W/ANGIO ONE ART/BRNCH CORONARY ANGIO W CATH PLACE W IMAGE INJECT & INTERP W LT HEART CATH W INJECT LT VENTRGRAPHY INSERT INTRACORONARY STENT-PER MAJOR VESSEL OR BRANCH [facility] Scientist [address] [place] [phone] Referral ID Status Reason Start Date Expiration Date Visits Re quested Visits Authorized [id number] 1 1 [facility] for visit Narrative* Outpatient Procedure (Routine) - Closed Specialty Diagnoses / Procedures Referred By Sujatha vasquez Referred To Contact [facility] Diagnoses Malignant neoplasm of right kidney, except renal pelvis (HCC) Procedures ECG COMPLETE ECG ROUTINE ECG W/LEAST 12 LDS W/I&R Stephany Ceballos PA-C [address] [place] [id number] [facility] [address] [place] [phone] Referral ID Status Reason Start Date Expiration Date V isits Requested Visits Authorized [id number] Closed Auto-Generate d Referral 07/11/2021 07/11/2022 1 1 [facility] for visit Narrative* Auth/Cert Specialty Diagnoses / Procedures Referred By Sujatha vasquez Referred To Contact HOSP INPATIENT Diagnoses Paroxysmal atrial fibrillation Acute decompensated heart failure (HCC) Paroxysmal atrial fibrillation (HCC) Procedures INITIAL HOSPITAL CARE/DAY 70 MINUTES Hosp Main J061 [address] [place] [phone] Referral ID Status Reason Start Date Expiration Date Visits Re quested Visits Authorized [id number] 1 1 [facility] for visit Narrative* Diagnostic Procedure Only (Routine) - Closed Specialty Diagnoses / Procedures Referred By Sujatha vasquez Referred To Contact MOLECULAR & FUNCTIONAL IMAGING Diagnoses Renal cell carcinoma of right kidney (HCC) Procedures NM BONE WHOLE BODY BONE &/JOINT IMAGING WHOLE BODY Haylee Wilburn MD [address] [place] [phone] Molecular [facility] Functional Imaging [address] [place] [address] Referral ID Status Reason Start Date Expiration Date V isits Requested Visits Authorized [id number] Closed Auto-Generate d Referral 03/11/2022 04/10/2023 1 2 [facility] for visit Narrative* Outpatient Procedure (Routine) - Closed Specialty Diagnoses / Procedures Referred By Sujatha vasquez Referred To Contact [facility] Diagnoses Acute decompensated heart failure (HCC) Paroxysmal atrial fibrillation (HCC) Procedures ECHO LIMITED ECHO TRANSTHORAC R-T 2D W/WO M-MODE REC COMP Sayra Tello MD [address] [facility], [address] [place] [address] [facility] [address] [place] [address] Referral ID Status Reason Start Date Expiration Date V isits Requested Visits Authorized [id number] Closed Patient Cleared - INN Insurance Found 02/19/2022 03/07/2022 1 1 [facility] Summary Purpose Family History No Family History [...] Documents on File Type Date Recorded 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 Advance Directive(s) 02/05/2020 6:22 PM Advance Directive(s) 11/14/2019 1:53 PM Documents on File Type Date Recorded 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 Advance Directive(s) 02/05/2020 6:22 PM Advance Directive(s) 11/14/2019 1:53 PM Documents on File Type Date Recorded 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 Advance Directive(s) 06/26/2021 2:39 PM Advance Directive(s) 02/05/2020 6:22 PM Advance Directive(s) 11/14/2019 1:53 PM Documents on File Type Date Recorded 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 Advance Directive(s) 06/26/2021 2:39 PM Advance Directive(s) 02/05/2020 6:22 PM Advance Directive(s) 11/14/2019 1:53 PM Advance Directive Response Recorded Date/ Time Living Will No June 04, 2019 5:40pm Power of Vascular Nurse No June 03 5:40pm Documents on File Type Date Recorded 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 Advance Directive(s) 07/31/2021 5:47 PM Advance Directive(s) 06/26/2021 2:39 PM Advance Directive(s) 02/05/2020 6:22 PM Advance Directive(s) 11/14/2019 1:53 PM Documents on File Type Date Recorded 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 Advance Directive(s) 08/05/2021 5:50 AM Advance Directive(s) 07/31/2021 5:47 PM Advance Directive(s) 06/26/2021 2:39 PM Advance Directive(s) 02/05/2020 6:22 PM Advance Directive(s) 11/14/2019 1:53 PM Documents on File Type Date 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 Advance Directive(s) 08/05/2021 5:50 AM Advance Directive(s) 07/31/2021 5:47 PM Advance Directive(s) 06/26/2021 2:39 PM Advance Directive(s) 02/05/2020 6:22 PM Advance Directive(s) 11/14/2019 1:53 PM Documents on File Type Date Recorded 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 Advance Directive(s) 08/17/2021 3:47 PM Advance Directive(s) 08/05/2021 5:50 AM Advance Directive(s) 07/31/2021 5:47 PM Advance Directive(s) 06/26/2021 2:39 PM Advance Directive(s) 02/05/2020 6:22 PM Advance Directive(s) 11/14/2019 1:53 PM Documents on File Type Date Recorded 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 Advance Directive(s) 08/17/2021 3:47 PM Advance Directive(s) 08/05/2021 5:50 AM Advance Directive(s) 07/31/2021 5:47 PM Advance Directive(s) 06/26/2021 2:39 PM Advance Directive(s) 02/05/2020 6:22 PM Advance Directive(s) 11/14/2019 1:53 PM Documents on File Type Date Recorded 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 Advance Directive(s) 09/02/2021 6:28 PM [...] Documents on File Type Date Recorded 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 Advance Directive(s) 09/02/2021 6:28 PM [...] Documents on File Type Date Recorded 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 Advance Directive(s) 09/23/2021 1:52 PM [...] Documents on File Type Date Recorded 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 Advance Directive(s) 09/23/2021 1:52 PM [...] Documents on File Type Date Recorded 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 Advance Directive(s) 10/06/2021 1:03 PM Advance Directive(s) 09/23/2021 1:52 PM Advance Directive(s) 09/02/2021 6:28 PM Advance Directive(s) 08/17/2021 3:47 PM Advance Directive(s) 08/05/2021 5:50 AM Advance Directive(s) 07/31/2021 5:47 PM Advance Directive(s) 06/26/2021 2:39 PM Advance Directive(s) 02/05/2020 6:22 PM Advance Directive(s) 11/14/2019 1:53 PM Advance Directive Response Recorded Date/ Time Living Will No December 07 2:19pm Power of Vascular Nurse No December 07 2:19pm Advance Directive Response Recorded Date/ Time Living Will No January 20 7:21pm Power of Vascular Nurse No January 20, 2022 7:21pm Advance Directive Response Recorded Date/ Time Name of Medical Power of Vascular Nurse January 29, 2022 11:59am Living Will No January 29 11:59am Power of Vascular Nurse Yes January 29, 2022 11:59am Advance Directive Response Recorded Date/ Time Name of Medical Power of Vascular Nurse January 29, 2022 11:59am Name of Medical Power of Vascular Nurse MIYA YANEZ- April 13, 2022 10:43pm Living Will No April 13 10:43pm Power of Vascular Nurse Yes April 13, 2022 10:43pm Advance Directive Response Recorded Date/ Time Name of Medical Power of Vascular Nurse January 29, 2022 11:59am Name of Medical Power of Vascular Nurse Miya gilliam April 14, 2022 1:15am Living Will No April 14 1:15am Power of Vascular Nurse Yes April 14, 2022 1:15am Advance Directive Response Recorded Date/ Time Name of Medical Power of Vascular Nurse January 29, 2022 12:59pm Name of Medical Power of Vascular Nurse Miya gilliam April 14, 2022 2:15am Name of Medical Power of Vascular Nurse miya yanez May 18, 2022 3:35pm Living Will Yes May 18, 2022 3:35pm Power of Vascular Nurse Yes May 18 3:35pm Advance Directive Response Recorded Date/ Time Name of Medical Power of Vascular Nurse January 29, 2022 12:59pm Name of Medical Power of Vascular Nurse Miya gilliam April 14, 2022 2:15am Name of Medical Power of Vascular Nurse Miya Yanez May 18, 2022 7:01pm Living Will Yes May 18, 2022 7:01pm Power of Vascular Nurse Yes May 18 7:01pm Advance Directive Response Recorded Date/ Time Name of Medical Power of Vascular Nurse Miya gilliam April 14, 2022 2:15am Name of Medical Power of Vascular Nurse Miya Yanez May 18, 2022 7:01pm Name of Medical Power of Vascular Nurse June 27, 2022 11:12pm Living Will Yes June 27, 2022 11:12pm Power of Vascular Nurse Yes June 27 11:12pm Advance Directive Response Recorded Date/ Time Name of Medical Power of Vascular Nurse Miya gilliam April 14, 2022 2:15am Name of Medical Power of Vascular Nurse Miya Yanez May 18, 2022 7:01pm Name of Medical Power of Vascular Nurse Miya Yanez June 28, 2022 1:12am Living Will No June 28, 2022 1:12am Power of Vascular Nurse Yes June 28 1:12am Advance Directive Response Recorded Date/ Time Name of Medical Power of Vascular Nurse Miya Yanez May 18, 2022 7:01pm Name of Medical Power of Vascular Nurse Miya Yanez June 28, 2022 1:12am Living Will No June 28, 2022 1:12am Power of Vascular Nurse Yes June 28 1:12am Advance Directive Response Recorded Date/ Time Name of Medical Power of Vascular Nurse Lena Yanez December 15, 2022 4:41pm Living Will No December 15 4:41pm Power of Vascular Nurse Yes December 15, 2022 4:41pm Advance Directive Response Recorded Date/ Time Name of Medical Power of Vascular Nurse Lena Yanez December 15, 2022 3:41pm Living Will No December 15 3:41pm Power of Vascular Nurse Yes December 15, 2022 3:41pm Advance Directive Response Recorded Date/ Time Living Will No December 15 3:41pm Power of Vascular Nurse Yes December 15, 2022 3:41pm Advance Directive Response Recorded Date/ Time Living Will No December 15 4:41pm Power of Vascular Nurse Yes December 15, 2022 4:41pm Date Activated [...] Do you have a Healthcare Power of Vascular Nurse? Yes December 15, 2022 4:41pm Reason for Referral Specialty Diagnoses / Procedures [facility] Diagnoses Malignant neoplasm of kidney, unspecified laterality (HCC) Malignant neoplasm of kidney excluding renal pelvis, unspecified laterality (HCC) Procedures CT ABD/PEL WO IVCON CT ABD & PELVIS W/O CONTRAST Adriana Hodge MD [address] [facility] [place] [address] Ct Imaging Referral ID Status Reason Start Date Expiration Date Visits Requested Visits Authorized [id number] Pending Review Auto-Generat ed Referral 06/23/2021 07/23/2022 1 1 Specialty Diagnoses / Procedures [facility] CT IMAGING Diagnoses Malignant neoplasm of kidney, unspecified laterality (HCC) Malignant neoplasm of kidney excluding renal pelvis, unspecified laterality (HCC) Procedures CT ABD/PEL W IVCON CT ABD & PELVIS W/CONTRAST Adriana Hodge MD [address] [place] [address] Ct Imaging Referral ID Status Reason Start Date Expiration Date Visits Requested Visits Authorized [id number] Pending Review Auto-Generat ed Referral 06/23/2021 07/23/2022 1 1 Specialty Diagnoses / Procedures [facility] Referred To Contact MOLECULAR & FUNCTIONAL IMAGING Diagnoses Malignant neoplasm of kidney, unspecified laterality (HCC) Malignant neoplasm of kidney excluding renal pelvis, unspecified laterality (HCC) Procedures NM BONE WHOLE BODY BONE &/JOINT IMAGING WHOLE BODY Adriana Hodge MD [address] [place] [address] Molecular & Functional Imaging [address] [place] [address] Referral ID Status Reason Start Date Expiration Date Visits Requested Visits Authorized [id number] Pending Review Auto-Generat ed Referral 06/23/2021 07/23/2022 1 1 Specialty Diagnoses / Procedures Referred By [facility] t Referred To Contact Oncology Diagnoses Malignant neoplasm of kidney, unspecified laterality (HCC) Malignant neoplasm of kidney excluding renal pelvis, unspecified laterality (HCC) Procedures CONSULT TO [facility]COL[facility] OFFICE[facility]74 [facility]UTES Adriana Hodge MD [address] [place] [address] Referral ID Status Reason Start Date Expiration Date Visits Requested Visits Authorized [id number] Pending Review PCP Requested Referral 06/23/2021 06/23/2022 1 1 Specialty Diagnoses / Procedures Referred By [facility] t Referred To Contact RADIO CT SCAN [facility] Diagnoses Malignant neoplasm of kidney, unspecified laterality (HCC) Malignant neoplasm of kidney excluding renal pelvis, unspecified laterality (HCC) Procedures CT ABD/PEL W IVCON CT ABD & PELVIS W/CONTRAST Adriana Hodge MD [address] [place] [address] Scan [facility] [address] [place] [address] Referral ID Status Reason Start Date Expiration Date V isits Requested Visits Authorized [id number] Closed Auto-Generate d Referral 06/26/2021 08/10/2021 1 1 Specialty Diagnoses / Procedures Referred By [facility] t Referred To Contact MR IMAGING Diagnoses Malignant neoplasm of kidney excluding renal pelvis, unspecified laterality (HCC) Renal cell carcinoma, unspecified laterality (HCC) Procedures MRI BRAIN WO/W IVCON MRI BRAIN BRAIN STEM W/O W/CONTRAST MATERIAL Kenneth Chester MD [address] [place] [address] Mr Imaging Referral ID Status Reason Start Date Expiration Date Visits Requested Visits Authorized [id number] Authorized Auto-Generat ed Referral 07/14/2021 08/28/2021 1 1 Specialty Diagnoses / Procedures Referred By Cont[facility] t Referred To Contact CT IMAGING Diagnoses Malignant neoplasm of right kidney, except renal pelvis (HCC) Renal cell carcinoma, unspecified laterality (HCC) Procedures CT CHEST W IVCON DIAGNOSTIC COMPUTED TOMOGRAPHY THORAX W/CONTRAST Kenneth Chester MD [address] [place] [address] Ct Imaging Referral ID Status Reason Start Date Expiration Date V isits Requested Visits Authorized [id number] Closed Auto-Generate d Referral 07/14/2021 08/28/2021 1 1 Referral ID Status Reason Start Date Expiration Date V isits Requested Visits Authorized [id number] Closed Auto-Generate d Referral 07/14/2021 08/28/2021 1 1 Specialty Diagnoses / Procedures Referred By Contac t Referred To Contact CT IMAGING Diagnoses Malignant neoplasm of right kidney, except renal pelvis (HCC) Malignant neoplasm of kidney excluding renal pelvis, unspecified laterality (HCC) Procedures CT ABD/PEL W IVCON CT ABD & PELVIS W/CONTRAST Kenneth Chester MD [address] [place] [address] Ct Imaging Referral ID Status Reason Start Date Expiration Date Visits Requested Visits Authorized [id number] Pending Review Auto-Generat ed Referral 07/28/2021 08/27/2022 1 1 Specialty Diagnoses / Procedures Referred By Contac t Referred To Contact MR IMAGING Diagnoses Other specified disorders of kidney and ureter Procedures MRI KIDNEY WO/W IVCON MRI ABDOMEN W/O & W/CONTRAST MATERIAL Godfrey Ohara, KEYUR.BOOSTER ASSEMBLER [address] [place] [address] Mr Imaging Referral ID Status Reason Start Date Expiration Date Visits Requested Visits Authorized [id number] Pending Review Auto-Generat ed Referral 08/08/2021 09/07/2022 1 1 Specialty Diagnoses / Procedures Referred By Contac t Referred To Contact CT IMAGING Diagnoses Malignant neoplasm of right kidney, except renal pelvis (HCC) Malignant neoplasm of kidney excluding renal pelvis, unspecified laterality (HCC) Procedures CT CHEST W IVCON DIAGNOSTIC COMPUTED TOMOGRAPHY THORAX W/CONTRAST Stephany Ceballos PA-C [id number] Imaging Referral ID Status Reason Start Date Expiration Date Visits Requested Visits Authorized [id number] Pending Review Auto-Generat ed Referral 08/21/2021 09/19/2022 1 1 Specialty Diagnoses / Procedures Referred By Contac t Referred To Contact CT IMAGING Diagnoses Malignant neoplasm of right kidney, except renal pelvis (HCC) Malignant neoplasm of kidney excluding renal pelvis, unspecified laterality (HCC) Procedures CT ABD/PEL W IVCON CT ABD & PELVIS W/CONTRAST Stephany Ceballos PA-C [id number] Imaging Referral ID Status Reason Start Date Expiration Date Visits Requested Visits Authorized [id number] Pending Review Auto-Generat ed Referral 08/21/2021 09/19/2022 1 1 Specialty Diagnoses / Procedures Referred By Contac t Referred To Contact CT IMAGING Diagnoses Malignant neoplasm of right kidney, except renal pelvis (HCC) Procedures CT CHEST W IVCON DIAGNOSTIC COMPUTED TOMOGRAPHY THORAX W/CONTRAST Godfrey Ohara APRN.BOOSTER ASSEMBLER [address] [place] [address] Ct Imaging Referral ID Status Reason Start Date Expiration Date Visits Requested Visits Authorized [id number] Pending Review Auto-Generat ed Referral 10/16/2021 09/26/2022 1 1 Specialty Diagnoses / Procedures Referred By Contac t Referred To Contact CT IMAGING Diagnoses Malignant neoplasm of right kidney, except renal pelvis (HCC) Procedures CT ABD/PEL W IVCON CT ABD & PELVIS W/CONTRAST Godfrey Ohara APRN.BOOSTER ASSEMBLER [address] [address] [address] Imaging Referral ID Status Reason Start Date Expiration Date Visits Requested Visits Authorized [id number] Pending Review Auto-Generat ed Referral 10/16/2021 09/26/2022 1 1 Specialty Diagnoses / Procedures Referred By Contac t Referred To Contact CT IMAGING Diagnoses SOB (shortness of breath) Procedures CT CHEST W IVCON PE DIAGNOSTIC COMPUTED TOMOGRAPHY THORAX W/CONTRAST Daksha Melo PA-C [address] [place] [address] Ct Imaging Referral ID Status Reason Start Date Expiration Date Visits Requested Visits Authorized [id number] Pending Review Auto-Generat ed Referral 09/02/2021 10/02/2022 1 1 Specialty Diagnoses / Procedures Referred By Contac t Referred To Contact CT IMAGING Diagnoses Malignant neoplasm of right kidney, except renal pelvis (HCC) Procedures CT CHEST W IVCON DIAGNOSTIC COMPUTED TOMOGRAPHY THORAX W/CONTRAST Adriana Hodge MD [address] [place] [address] Ct Imaging Referral ID Status Reason Start Date Expiration Date Visits Requested Visits Authorized [id number] Closed Financial Clearance Required - OON Payor [...] ABD & PELVIS W/CONTRAST Adriana Hodge MD [address] [place] [address] Ct Imaging Referral ID Status Reason Start Date Expiration Date Visits Requested Visits Authorized [id number] Closed Financial Clearance Required - OON Payor OON Notification Letter Clearance Not Met - Pt Rescheduled/Canc elled/Chose Not to Proceed OON/Self Pay Override 10/22/2021 11/21/2022 1 0 Specialty Diagnoses / Procedures Referred By Contac t Referred To Contact Diagnoses Renal cell carcinoma of right kidney (HCC) Procedures REFER TO PACC - PRE ANESTHESIA CONSULTATION CLINIC OFFICE/OUTPATIENT [facility] MDM 60-74 MINUTES Adriana Hodge MD [address] [place] [address] [place] [phone] Referral ID Status Reason Start Date Expiration Date V isits Requested Visits Authorized [id number] Denied PCP Requested Referral 12/30/2021 12/30/2022 1 0 Specialty Diagnoses / Procedures Referred By Contac t Referred To Contact [facility] Diagnoses Renal cell carcinoma of right kidney (HCC) Procedures ECG COMPLETE ECG ROUTINE ECG W/LEAST 12 LDS W/I&R Adriana Hodge MD [address] [place] [address] [place] [phone] Referral ID Status Reason Start Date Expiration Date V isits Requested Visits Authorized [id number] Denied Auto-Generate d Referral 12/30/2021 12/30/2022 1 0 Medications Administered Section Inactive Administered Medications - up to 3 most recent administrations Medication Order MAR Action Action Date Dose Rate Site INV CABOZANTINIB 40 mg TABLET ([facility] 1820/20-983) 40 mg, ORAL, ONCE, [...] Date Dose Rate Site INV NIVOLUMAB ([facility] 1820/20-983) 480 mg in NaCl [...] Site INV CABOZANTINIB 20 mg TABLET ([facility] 1820/20-983) 20 mg, ORAL, ONCE, [...] CHRONIC HEART FAILURE AECHF AECHF AECHF [facility]/P [facility] 04-13-22 CHF and AFIB (NO CONSULT) NEW-RENAL [...] CHRONIC HEART FAILURE AECHF AECHF AECHF S/P [facility] 04-13-22 CHF and AFIB (NO CONSULT) NEW-RENAL [...] bone Chief Complaint AECHF AECHF AECHF [facility] 04-13-22 CHF and AFIB (NO CONSULT) NEW-RENAL [...] DATE CREATED AUTHOR AUTHOR'S ORGANIZ ATION 02/05/2022 [facility] DATE CREATED AUTHOR AUTHOR'S ORGANIZ ATION 03/17/2022 [facility] DATE CREATED AUTHOR AUTHOR'S ORGANIZ ATION 04/04/2022 [facility] DATE CREATED AUTHOR AUTHOR'S ORGANIZ ATION 04/25/2022 [facility] DATE CREATED AUTHOR AUTHOR'S ORGANIZ ATION 05/18/2022 [facility] DATE CREATED AUTHOR AUTHOR'S ORGANIZ ATION 07/19/2022 [facility] DATE CREATED AUTHOR AUTHOR'S ORGANIZ ATION 10/17/2024 [facility] Care Teams (unrecognized [...] Active Member Role Status Dates Dr. Jose Ramno Turner MD Primary Care Provider Activ e [...] of Kin Active Start: June 19, 2021 Front Desk Worker Relationship Specialty [place] [address] [place] [address] PCP - General Internal Medicine 10/10/18 Front Desk Worker Relationship Specialty [place] [address] [place] [address] PCP - General Internal Medicine 10/10/18 Front Desk Worker Relationship Specialty Start [place] [address] [place] [address] PCP - General Internal Medicine 10/10/18 Front Desk Worker Relationship Specialty Start [place] [address] [place] [address] PCP - General Internal Medicine 10/10/18 Front Desk Worker Relationship Specialty Start [place] [address] [place] [address] PCP - General Internal Medicine 10/10/18 Front Desk Worker Relationship Specialty Start [place] [address] [place] [address] PCP - General Internal Medicine 10/10/18 Front Desk Worker Relationship Specialty Start [place] [address] [place] [address] PCP - General Internal Medicine 10/10/18 Front Desk Worker Relationship Specialty Start [place] [address] [place] [address] PCP - General Internal Medicine 10/10/18 Front Desk Worker Relationship Specialty Start [place] [address] [place] [address] PCP - General Internal Medicine 10/10/18 Front Desk Worker Relationship Specialty Start [place] [address] [place] [address] PCP - General Internal Medicine 10/10/18 Front Desk Worker Relationship Specialty Start [place] [address] [place] [address] PCP - General Internal Medicine 10/10/18 Front Desk Worker Relationship Specialty Start [place] [address] [place] [address] PCP - General Internal Medicine 10/10/18 Front Desk Worker Relationship Specialty Start [place] [address] [place] [address] PCP - General Internal Medicine 10/10/18 Front Desk Worker Relationship Specialty Start [place] [address] [place] [address] PCP - General Internal Medicine 10/10/18 Front Desk Worker Relationship Specialty Start Date End Date Daksha Turner MD [address] [place] [address], [place] [address] PCP - General Family Practice 07/18/21 Front Desk Worker Relationship Specialty Start Date End Date Daksha Turner MD [address] [place] [address], [place] [address] PCP - General Family Practice 07/18/21 Front Desk Worker Relationship Specialty Start Date End Date Daksha Turner MD [address] [place] [address], [place] [address] PCP - General Family Practice 07/18/21 Front Desk Worker Relationship Specialty Start Date End Date Daksha Turner MD [address] [place] [address] PCP - General Family Practice 07/18/21 Front Desk Worker Relationship Specialty Start Date End Date Daksha Turner MD [address] [place] [address] PCP - General Family Practice 07/18/21 Front Desk Worker Relationship Specialty Start Date End Date Daksha Turner MD [address] [place] [address] PCP - General Family Practice 07/18/21 Front Desk Worker Relationship Specialty Start Date End Date Daksha Turner MD [address] [place] [address] PCP - General Family Practice 07/18/21 Front Desk Worker Relationship Specialty Start Date End Date Daksha Turner MD [address] [place] [address] PCP - General Family Practice 07/18/21 Front Desk Worker Relationship Specialty Start Date End Date Daksha Turner MD [address] [place] [address] PCP - General Family Practice 07/18/21 Front Desk Worker Relationship Specialty Start Date End Date Daksha Turner MD [address] [place] [address] PCP - General Family Practice 07/18/21 Front Desk Worker Relationship Specialty Start Date End Date Daksha Turner MD [address] [place] [address] PCP - General Family Practice 07/18/21 Front Desk Worker Relationship Specialty Start Date End Date Daksha Turner MD [address] [place] [address] PCP - General Family Practice 07/18/21 Front Desk Worker Relationship Specialty Start Date End Date Daksha Turner MD [address] [place] [address] PCP - General Family Practice 07/18/21 Front Desk Worker Relationship Specialty Start Date End Date Daksha Turner MD [address] [place] [address] PCP - General Family Practice 07/18/21 Front Desk Worker Relationship Specialty Start Date End Date Daksha Turner MD [address] [place] [address] PCP - General Family Practice 07/18/21 Front Desk Worker Relationship Specialty Start Date End Date Daksha Turner MD [address] [place] [address] PCP - General Family Practice 07/18/21 Front Desk Worker Relationship Specialty Start Date End Date Daksha Turner MD [address] [place] [address] PCP - General Family Practice 07/18/21 Front Desk Worker Relationship Specialty Start Date End Date Daksha Turner MD [address] [place] [address] PCP - General Family Practice 07/18/21 Front Desk Worker Relationship Specialty Start Date End Date Daksha Turner MD [address] [place] [address] PCP - General Family Practice 07/18/21 Front Desk Worker Relationship Specialty Start Date End Date Daksha Turner MD [address] [place] [address] PCP - General Family Practice 07/18/21 Front Desk Worker Relationship Specialty Start Date End Date Daksha Turner MD [address] [place] [address] PCP - General Family Practice 07/18/21 Front Desk Worker Relationship Specialty Start Date End Date Daksha Turner MD [address] [place] [address] PCP - General Family Practice 07/18/21 Front Desk Worker Relationship Specialty Start Date End Date Daksha Turner MD [address] [place] [address] PCP - General Family Practice 07/18/21 Front Desk Worker Relationship Specialty Start Date End Date Daksha Turner MD [address] [place] [address] PCP - General Family Practice 07/18/21 Sary Jonas, [employer] Worker Oncology 08/11/21 Front Desk Worker Relationship Specialty Start Date End Date Daksha Turner MD [address] [place] [address] PCP - General Family Practice 07/18/21 Sary Jonas, [employer] Worker Oncology 08/11/21 Front Desk Worker Relationship Specialty Start Date End Date Daksha Turner MD [address] [place] [address] PCP - General Family Practice 07/18/21 Sumi, Sary, [employer] Worker Oncology 08/11/21 Front Desk Worker Relationship Specialty Start Date End Date Daksha Turner MD [address] [place] [address] PCP - General Family Practice 07/18/21 Golias, Sary, [employer] Worker Oncology 08/11/21 Front Desk Worker Relationship Specialty Start Date End Date Daksha Turner MD [address] [place], [place] [id number] PCP - General Family Practice 07/18/21 Golias, Sary, [employer] Worker Oncology 08/11/21 Front Desk Worker Relationship Specialty Start Date End Date Daksha Turner MD [address] [facility], [place] [address] PCP - General Family Practice 07/18/21 Golelpidio, Sary, [facility] Plaster And Stucc[employer] Worker Oncology 08/11/21 Lalo Black MD [address] [place] [address] Primary Staff Physician Cardiology 08/19/21 Front Desk Worker Relationship Specialty Start Date End Date Daksha Turner MD [address] [place] [address] PCP - General Family Practice 07/18/21 Sumi, Sary, [facility] [employer] Worker Oncology 08/11/21 Lalo Black MD [address] [place], [place] [id number] Primary Staff Physician Cardiology 08/19/21 Front Desk Worker Relationship Specialty Start Date End Date Daksha Turner MD [address] [place] [address] PCP - General Family Practice 07/18/21 Sumi, Sary, [facility] [facility]ARE [employer] Worker Oncology 08/11/21 Lalo Black MD [address] [place], [place] [id number] Primary Staff Physician Cardiology 08/19/21 Front Desk Worker Relationship Specialty Start Date End Date Daksha Turner [facility] [address] [facility] [place] [address] PCP - General Family Practice 07/18/21 Sary Jonas, [facility] [employer] Worker Oncology 08/11/21 Lalo Black MD [address] [place] [address] Primary Staff Physician Cardiology 08/19/21 Front Desk Worker Relationship Specialty Start Date End Date Daksha Turner MD [address] [facility] [place] [address] PCP - General Family Practice 07/18/21 Sary Jonas, [facility] [employer] Worker Oncology 08/11/21 Lalo Black MD [address] [place] [address] Primary Staff Physician Cardiology 08/19/21 Front Desk Worker Relationship Specialty Start Date End Date Daksha Turner MD [address] [facility] [place], [place] [address] PCP - General Family Practice 07/18/21 Sary Jonas, [facility] [employer] Worker Oncology 08/11/21 Lalo Black MD [address] [place] [address] Primary Staff Physician Cardiology 08/19/21 Front Desk Worker Relationship Specialty Start Date End Date Daksha Turner MD [address] [facility] [place] [address] PCP - General Family Practice 07/18/21 Sary Jonas, [facility] [employer] Worker Oncology 08/11/21 Lalo Black MD [address] [place] [address] Primary Staff Physician Cardiology 08/19/21 Front Desk Worker Relationship Specialty Start Date End Date Daksha Turner MD [address] [place], [place] 78[address]71 PCP - General Family Practice 07/18/21 Sary Jonas, [facility] [employer] Worker Oncology 08/11/21 Lalo Black MD [address] [place] [address] Primary Staff Physician Cardiology 08/19/21 Front Desk Worker Relationship Specialty Start Date End Date Daksha Turner MD [address] [place] [address] PCP - General Family Practice 07/18/21 Sary Jonas, [facility] [employer] Worker Oncology 08/11/21 Lalo Black MD [address] [place] [address] Primary Staff Physician Cardiology 08/19/21 Front Desk Worker Relationship Specialty Start Date End Date Daksha Turner MD [address] [place], [place] 292311 PCP - General Family Practice 07/18/21 Sary Jonas, [facility] [employer] Worker Oncology 08/11/21 Lalo Black MD [address] [place] [address] Primary Staff Physician Cardiology 08/19/21 Front Desk Worker Relationship Specialty Start Date End Date Daksha Turner MD [address] [place] [address] PCP - General Family Practice 07/18/21 Sary Jonas, [facility] [employer] Worker Oncology 08/11/21 Lalo Blakc MD [address] [place] [address] Primary Staff Physician Cardiology 08/19/21 Rahul Knight, RN Research Nurse 09/03/21 Front Desk Worker Relationship Specialty Start Date End Date Daksha Turner MD [address] [facility], [place] [address]71 PCP - General Family Practice 07/18/21 Sary Jonas, [facility] [employer] Worker Oncology 08/11/21 Lalo Black MD [address] [place], [place] [id number] Primary Staff Physician Cardiology 08/19/21 Rahul Knight, RN Research Nurse 09/03/21 Front Desk Worker Relationship Specialty Start Date End Date Daksha Turner MD [address] [place], [place] [id number] PCP - General Family Practice 07/18/21 Sary Jonas, [facility] [employer] Worker Oncology 08/11/21 Lalo Black MD [address] [place] [address] Primary Staff Physician Cardiology 08/19/21 Rahul Knight, RN Research Nurse 09/03/21 Front Desk Worker Relationship Specialty Start Date End Date Daksha Turner MD [address] [facility] [place] [address] PCP - General Family Practice 07/18/21 Sary Jonas, [facility] [employer] Worker Oncology 08/11/21 Lalo Black MD [address] [place] [address] Primary Staff Physician Cardiology 08/19/21 Rahul Knight, RN Research Nurse 09/03/21 Front Desk Worker Relationship Specialty Start Date End Date Daksha Turner MD [address] [place], [place] [id number] PCP - General Family Practice 07/18/21 Sary Jonas, [facility] [employer] Worker Oncology 08/11/21 Lalo Black MD [address] [place] [address] Primary Staff Physician Cardiology 08/19/21 Rahul Knight, RN Research Nurse 09/03/21 Front Desk Worker Relationship Specialty Start Date End Date Daksha Turner MD [address] [place], [place] [id number] PCP - General Family Practice 07/18/21 [facility] [employer] Worker Oncology 08/11/21 Lalo Black MD [address] [place], [place] [id number] Primary Staff Physician Cardiology 08/19/21 Rahul Knight, RN Research Nurse 09/03/21 Safia Carr, [facility] [address] [place] [address] Transitional Care Pharmacist Pharmacy 09/29/21 10/30/21 Front Desk Worker Relationship Specialty Start Date End Date Daksha Turner MD [address] [place], [place] [id number] PCP - General Family Practice 07/18/21 [facility] [employer] Worker Oncology 08/11/21 Lalo Black MD [address] [place] [address] Primary Staff Physician Cardiology 08/19/21 Rahul Knight, RN Research Nurse 09/03/21 Safia Carr, [facility] [address] [place] [address] Transitional Care Pharmacist Pharmacy 09/29/21 10/30/21 Front Desk Worker Relationship Specialty Start Date End Date Daksha Turner MD [address] [place], [place] [id number] PCP - General Family Practice 07/18/21 Sary Jonas, [facility] [employer] Worker Oncology 08/11/21 Lalo Black MD [address] [place] [address] Primary Staff Physician Cardiology 08/19/21 Rahul Knight, RN Research Nurse 09/03/21 Front Desk Worker Relationship Specialty Start Date End Date Daksha Turner MD [address] [place], [place] 603171 PCP - General Family Practice 07/18/21 Sary Jonas, [facility] [employer] Worker Oncology 08/11/21 Lalo Black MD [address] [place] [address] Primary Staff Physician Cardiology 08/19/21 Rahul Knight, RN Research Nurse 09/03/21 Safia Carr, [facility] [address] [place] [address] Transitional Care Pharmacist Pharmacy 09/29/21 10/30/21 Front Desk Worker Relationship Specialty Start Date End Date Daksha Turner MD [address] [place], [place] [id number] PCP - General Family Practice 07/18/21 Sary Jonas, [facility] [employer] Worker Oncology 08/11/21 Lalo Black MD [address] [place] [address] Primary Staff Physician Cardiology 08/19/21 Rahul Knight, RN Research Nurse 09/03/21 Safia Carr, [facility] [address] [place] [address] Transitional Care Pharmacist Pharmacy 09/29/21 10/30/21 Front Desk Worker Relationship Specialty Start Date End Date Daksha Turner MD [address] [place] [address] PCP - General Family Practice 07/18/21 Sary Jonas, [facility] Pl[employer] Worker Oncology 08/11/21 Lalo Black MD [address] [place] [address] Primary Staff Physician Cardiology 08/19/21 Rahul Knight, RN Research Nurse 09/03/21 Safia Carr, [facility] [address] [place] [address] Transitional Care Pharmacist Pharmacy 09/29/21 10/30/21 Front Desk Worker Relationship Specialty Start Date End Date Daksha Turner MD [address] [place], [place] [id number] PCP - General Family Practice 07/18/21 Sary Jonas, [facility] Pl[employer] Worker Oncology 08/11/21 Lalo Black MD [address] [place] [address] Primary Staff Physician Cardiology 08/19/21 Rahul Knight, RN Research Nurse 09/03/21 Safia Carr, [facility] [address] [place] [address] Transitional Care Pharmacist Pharmacy 09/29/21 10/30/21 Front Desk Worker Relationship Specialty Start Date End Date Daksha Turner MD [address] [place], [place] [id number] PCP - General Family Practice 07/18/21 Sary Jonas, [facility] Pl[employer] Worker Oncology 08/11/21 Lalo Black MD [address] [place], [place] [id number] Primary Staff Physician Cardiology 08/19/21 Rahul Knight, RN Research Nurse 09/03/21 Safia Carr, [facility] [address] [place] [address] Transitional Care Pharmacist Pharmacy 09/29/21 10/30/21 Front Desk Worker Relationship Specialty Start Date End Date Daksha Turner MD [address] [place], [place] [id number] PCP - General Family Practice 07/18/21 Sary Jonas, [facility] Pl[employer] Worker Oncology 08/11/21 Lalo Black MD [address] [place] [address] Primary Staff Physician Cardiology 08/19/21 Rahul Knight, RN Research Nurse 09/03/21 Front Desk Worker Relationship Specialty Start Date End Date Daksha Turner MD [address] [place], [place] 174791 PCP - General Family Practice 07/18/21 Sary Jonas, [facility] [employer] Worker Oncology 08/11/21 Lalo Black MD [address] [place], [place] [id number] Primary Staff Physician Cardiology 08/19/21 Rahul Knight, RN Research Nurse 09/03/21 Safia Carr, [facility] [address] [place] [address] Transitional Care Pharmacist Pharmacy 09/29/21 10/30/21 Front Desk Worker Relationship Specialty Start Date End Date Daksha Turner MD [address] [place], [place] [id number] PCP - General Family Practice 07/18/21 Sary Jonas, [facility] Pl[employer] Worker Oncology 08/11/21 Lalo Black MD [address] [place], [place] [id number] Primary Staff Physician Cardiology 08/19/21 Rahul Knight, RN Research Nurse 09/03/21 Front Desk Worker Relationship Specialty Start Date End Date Daksha Turner MD [address] [place], [place] [id number] PCP - General Family Practice 07/18/21 Sary Jonas, [facility] Pl[employer] Worker Oncology 08/11/21 Lalo Black MD [address] [place] [address] Primary Staff Physician Cardiology 08/19/21 Rahul Knight, RN Research Nurse 09/03/21 Safia Carr, [facility] [address] [place], [place] [id number] Transitional Care Pharmacist Pharmacy 09/29/21 10/30/21 Front Desk Worker Relationship Specialty Start Date End Date Daksha Turner MD [address] [place], [place] [id number] PCP - General Family Practice 07/18/21 Sary Jonas, [facility] Pl[employer] Worker Oncology 08/11/21 Lalo Black MD [address] [place] [address] Primary Staff Physician Cardiology 08/19/21 Rahul Knight, RN Research Nurse 09/03/21 Front Desk Worker Relationship Specialty Start Date End Date Daksha Turner MD [address] [place], [place] [id number] PCP - General Family Practice 07/18/21 Sary Jonas, [facility] Pl[employer] Worker Oncology 08/11/21 Lalo Black MD [address] [place] [address] Primary Staff Physician Cardiology 08/19/21 Rahul Knight, RN Research Nurse 09/03/21 Front Desk Worker Relationship Specialty Start Date End Date Daksha Turner MD [address] [place], [place] 422821 PCP - General Family Practice 07/18/21 Sary Jonas, [facility] Pl[employer] Worker Oncology 08/11/21 Lalo Black MD [address] [place] [address] Primary Staff Physician Cardiology 08/19/21 Rahul Knight, RN Research Nurse 09/03/21 Front Desk Worker Relationship Specialty Start Date End Date Daksha Turner MD [address] [place], [place] [id number] PCP - General Family Medicine 07/18/21 Sary Jonas, [facility] Pl[employer] Worker Oncology 08/11/21 Lalo Black MD [address] [place] [address] Primary Staff Physician Cardiology 08/19/21 Rahul Knight, RN Research Nurse 09/03/21 Front Desk Worker Relationship Specialty Start Date End Date Daksha Turner MD [address] [place] [address] PCP - General Family Medicine 07/18/21 Sary Jonas, [facility] Pl[employer] Worker Oncology 08/11/21 Lalo Black MD [address] [place] [address] Primary Staff Physician Cardiology 08/19/21 Rahul Knight, RN Research Nurse 09/03/21 Front Desk Worker Relationship Specialty Start Date End Date Daksha Turner MD [address] [place], [place] [id number] PCP - General Family Medicine 07/18/21 Sary Jonas, [facility] Pl[employer] Worker Oncology 08/11/21 Lalo Black MD [address] [place] [address] Primary Staff Physician Cardiology 08/19/21 Rahul Knight, RN Research Nurse 09/03/21 Haylee Wilburn MD [address] [place], [place] [id number] Oncology 12/08/21 Alfredo Xavier MD [address] [facility] [place] [address] Radiation Oncology 12/08/21 Front Desk Worker Relationship Specialty Start Date End Date Daksha Turner MD [address] [place], [place] [id number] PCP - General Family Medicine 07/18/21 Sary Jonas, [facility] Pl[employer] Worker Oncology 08/11/21 Lalo Black MD [address] [place] [address] Primary Staff Physician Cardiology 08/19/21 Rahul Knight, RN Research Nurse 09/03/21 Haylee Wilburn MD [address] [place] [address] Oncology 12/08/21 Alfredo Xavier MD [address] [facility] [place] [address] Radiation Oncology 12/08/21 Front Desk Worker Relationship Specialty Start Date End Date Daksha Turner MD [address] [place], [place] [id number] PCP - General Family Medicine 07/18/21 Sary Jonas, [facility] Pl[employer] Worker Oncology 08/11/21 Lalo Black MD [address] [place] [address] Primary Staff Physician Cardiology 08/19/21 Rahul Knight, RN Research Nurse 09/03/21 Haylee Wilburn MD [address] [place] [address] Oncology 12/08/21 Alfredo Xavier MD [address] [place] [address] Radiation Oncology 12/08/21 Front Desk Worker Relationship Specialty Start Date End Date Daksha Turner MD [address] [facility] [place], [place] [id number] PCP - General Family Medicine 07/18/21 Sary Jonas, [facility] Pl[employer] St[employer] Worker Oncology 08/11/21 Lalo Black MD [address] [place] [address] Primary Staff Physician Cardiology 08/19/21 Rahul Knight, RN Research Nurse 09/03/21 Haylee Wilburn MD [address] [place] [address] Oncology 12/08/21 [place] [address] [place] [address] Radiation Oncology 12/08/21 Front Desk Worker Relationship Specialty Start Date End Date Daksha Turner MD [address] [facility] [place], [place] [id number] PCP - General Family Medicine 07/18/21 Sary Jonas, [facility] Pl[employer] Worker Oncology 08/11/21 Lalo Black MD [address] [place] [address] Primary Staff Physician Cardiology 08/19/21 Rahul Knight, RN Research Nurse 09/03/21 Haylee Wilburn MD [address] [place], [place] 9445179 [phone] Oncology 12/08/21 [place] [address] [place] [address] Radiation Oncology 12/08/21 Front Desk Worker Relationship Specialty Start Date End Date Daksha Turner MD [address] [place], [place] [id number] PCP - General Family Medicine 07/18/21 [facility] [employer] Worker Oncology 08/11/21 Lalo Black MD [address] [place], [place] [id number] Primary Staff Physician Cardiology 08/19/21 Rahul Knight, RN Research Nurse 09/03/21 Haylee Wilburn MD [facility] [place], [place] 9304[address] Oncology 12/08/21 [place] [address] [place] [address] Radiation Oncology 12/08/21 Front Desk Worker Relationship Specialty Start Date End Date Daksha Turner MD [address] [place], [place] [id number] PCP - General Family Medicine 07/18/21 [facility] [employer] Worker Oncology 08/11/21 Lalo Black MD [address] [place], [place] [id number] Primary Staff Physician Cardiology 08/19/21 Rahul Knight, RN Research Nurse 09/03/21 Haylee Wilburn MD [address] [place], [place] 6924108 Oncology 12/08/21 [place] [address] [place] [address] [place] [address] Radiation Oncology 12/08/21 Front Desk Worker Relationship Specialty Start Date End Date Daksha Turner MD [address] [place] [address] PCP - General Family Medicine 07/18/21 Sary Jonas, [facility] Plaster [employer] Stucc[employer] Worker Oncology 08/11/21 Lalo Black MD [address] [place] [address] Primary Staff Physician Cardiology 08/19/21 Rahul Knight, RN Research Nurse 09/03/21 Haylee Wilburn MD [address] [place], [place] [id number] Oncology 12/08/21 [place] [address] [place] [address] [place] [address] Radiation Oncology 12/08/21 Front Desk Worker Relationship Specialty Start Date End Date Daksha Turner MD [address] [place] [address] PCP - General Family Medicine 07/18/21 Sary Jonas, [facility] Pl[employer] Worker Oncology 08/11/21 Lalo Black MD [address] [place] [address] Primary Staff Physician Cardiology 08/19/21 Rahul Knight, RN Research Nurse 09/03/21 Haylee Wilburn MD [address] [place], [place] 5798988 [phone] Oncology 12/08/21 Alfredo Xavier MD [address] [facility] [place] [address] Radiation Oncology 12/08/21 Front Desk Worker Relationship Specialty Start Date End Date Daksha Turner MD [address] [place], [place] [id number] PCP - General Family Medicine 07/18/21 Sary Jonas, [facility] Pl[employer] Worker Oncology 08/11/21 Lalo Black MD [address] [place] [address] Primary Staff Physician Cardiology 08/19/21 Rahul Knight, RN Research Nurse 09/03/21 Haylee Wilburn MD [address] [place] [address] Oncology 12/08/21 Alfredo Xavier MD [address] [facility] [place] [address] Radiation Oncology 12/08/21 Sayra Tello MD [address] [facility] [place] [address] Cardiology 02/12/22 Front Desk Worker Relationship Specialty Start Date End Date Daksha Turner MD [address] [place], [place] 294051 PCP - General Family Medicine 07/18/21 Sary Jonas, [facility] Pl[employer]ucc[employer] Worker Oncology 08/11/21 Lalo Black MD [address] [place] [address] Primary Staff Physician Cardiology 08/19/21 Rahul Knight, RN Research Nurse 09/03/21 Haylee Wilburn MD [address] [facility] [place], [place] 7518852 [phone] Oncology 12/08/21 Alfredo Xavier MD [address] [facility] [place] [address] Radiation Oncology 12/08/21 Sayra Tello MD [address] [place], [place] 5481708 Cardiology 02/12/22 Front Desk Worker Relationship Specialty Start Date End Date Daksha Turner MD [address] [place], [place] [id number] PCP - General Family Medicine 07/18/21 Sary Jonas, [facility] Pl[employer] Worker Oncology 08/11/21 Lalo Black MD [address] [place] [address] Primary Staff Physician Cardiology 08/19/21 Rahul Knight, RN Research Nurse 09/03/21 Haylee Wilburn MD [address] [place], [place] 3960867 [phone] Oncology 12/08/21 Alfredo Xavier MD [address] [facility] [place] [address] Radiation Oncology 12/08/21 Sayra Tello MD [address] [place], [place] 3228208 Cardiology 02/12/22 Front Desk Worker Relationship Specialty Start Date End Date Daksha Turner MD [address] [facility] [place], [place] [id number] PCP - General Family Medicine 07/18/21 Sary Jonas, [facility] Plaster [employer] Stucc[employer] Worker Oncology 08/11/21 Lalo Black MD [address] [place] [address] Primary Staff Physician Cardiology 08/19/21 Rahul Knight, RN Research Nurse 09/03/21 Haylee Wilburn MD [address] [place], [place] 3907012 [phone] Oncology 12/08/21 Alfredo Xavier MD [address] [facility] [place] [address] Radiation Oncology 12/08/21 Sayra Tello MD [address] [place], [place] 8111608 Cardiology 02/12/22 Front Desk Worker Relationship Specialty Start Date End Date Daksha Turner MD [address] [place] [address] PCP - General Family Medicine 07/18/21 Sary Jonas [facility] Plaster [employer] Stucc[employer] Worker Oncology 08/11/21 Lalo Black MD [address] [place] [address] Primary Staff Physician Cardiology 08/19/21 Rahul Knight, RN Research Nurse 09/03/21 Haylee Wilburn MD [address] [place], [place] 3482608 Oncology 12/08/21 Alfredo Xavier MD [address] [place] [address] Radiation Oncology 12/08/21 Sayra Tello MD [address] [place] [address] Cardiology 02/12/22 Front Desk Worker Relationship Specialty Start Date End Date Daksha Turner MD [address] [place] [address] PCP - General Family Medicine 07/18/21 Sary Jonas, [facility] Pl[employer] Worker Oncology 08/11/21 Lalo Black MD [address] [place] [address] Primary Staff Physician Cardiology 08/19/21 Rahul Knight, RN Research Nurse 09/03/21 Haylee Wilburn MD [address] [place] [address] Oncology 12/08/21 Alfredo Xavier MD [address] [facility] [place] [address] Radiation Oncology 12/08/21 Sayra Tello MD [address] [facility] [address] [place], [place] [id number] Cardiology 02/12/22 Front Desk Worker Relationship Specialty Start Date End Date Daksha Turner MD [address] [place] [address] PCP - General Family Medicine 07/18/21 Sary Jonas, [facility] [employer] Worker Oncology 08/11/21 Lalo Black MD [address] [place] [address] Primary Staff Physician Cardiology 08/19/21 Rahul Knight, RN Research Nurse 09/03/21 Haylee Wilburn MD [address] [place], [place] 7377908 Oncology 12/08/21 Alfredo Xavier MD [address] [facility] [place] [address] Radiation Oncology 12/08/21 Sayra Tello MD [address] [place] [address] Cardiology 02/12/22 Front Desk Worker Relationship Specialty Start Date End Date Daksha Turner MD [address] [place], [place] 417571 PCP - General Family Medicine 07/18/21 Sary Jonas, [facility] Pl[employer] Worker Oncology 08/11/21 Lalo Black MD [address] [place] [address] Primary Staff Physician Cardiology 08/19/21 Rahul Knight, RN Research Nurse 09/03/21 Haylee Wilburn MD [address] [place] [address] Oncology 12/08/21 Alfredo Xavier MD [address] [facility] [place] [address] Radiation Oncology 12/08/21 Sayra Tello MD [address] [place] [address] Cardiology 02/12/22 Front Desk Worker Relationship Specialty Start Date End Date Daksha Turner MD [address] [place] [address] PCP - General Family Medicine 07/18/21 Sary Jonas, [facility] [employer] Worker Oncology 08/11/21 Lalo Black MD [address] [place], [place] [phone] Primary Staff Physician Cardiology 08/19/21 Rahul Knight, RN Research Nurse 09/03/21 Haylee Wilburn MD [address] [place] [address] Oncology 12/08/21 Alfredo Xavier MD [address] [facility] [place] [place] [address] Radiation Oncology 12/08/21 Sayra Tello MD [address] [place] [address] Cardiology 02/12/22 Front Desk Worker Relationship Specialty Start Date End Date Daksha Turner MD [address] [facility] [place], [place] [id number] PCP - General Family Medicine 07/18/21 Sary Jonas, [facility] [employer] Worker Oncology 08/11/21 Lalo Black MD [address] [place], [place] [id number] Primary Staff Physician Cardiology 08/19/21 Rahul Knight, RN Research Nurse 09/03/21 Haylee Wilburn MD [address] [facility] [place] [place], [place] [phone] Oncology 12/08/21 Alfredo Xavier MD [address] [place] [address] Radiation Oncology 12/08/21 Sayra Tello MD [address] [place] [address] Cardiology 02/12/22 Front Desk Worker Relationship Specialty Start Date End Date Daksha Turner MD [address] [place], [place] [id number] PCP - General Family Medicine 07/18/21 Sary Jonas, [facility] [employer] Worker Oncology 08/11/21 Lalo Black MD [address] [place] [address] Primary Staff Physician Cardiology 08/19/21 Rahul Knight, RN Research Nurse 09/03/21 Haylee Wilburn MD [address] [place], [place] [id number] Oncology 12/08/21 Alfredo Xavier MD [address] [place] [address] Radiation Oncology 12/08/21 Sayra Tello MD [address] [place] [address] Cardiology 02/12/22 Front Desk Worker Relationship Specialty Start Date End Date Daksha Turner MD [address] [place], [place] [id number] PCP - General Family Medicine 07/18/21 Sary Jonas [facility] [employer] Worker Oncology 08/11/21 Lalo Black MD [address] [place] [address] Primary Staff Physician Cardiology 08/19/21 Rahul Knight, RN Research Nurse 09/03/21 Haylee Wilburn MD [address] [place], [place] [phone] Oncology 12/08/21 Alfredo Xaveir MD [address] [place] [address] Radiation Oncology 12/08/21 Sayra Tello MD [address] [place] [address] Cardiology 02/12/22 Front Desk Worker Relationship Specialty Start Date End Date Daksha Turner MD [address] [place] [address] PCP - General Family Medicine 07/18/21 Sary Jonas [facility] [employer] Worker Oncology 08/11/21 Lalo Black MD [address] [place] [address] Primary Staff Physician Cardiology 08/19/21 Rahul Knight, RN Research Nurse 09/03/21 Haylee Wilburn MD [address] [place] [address] Oncology 12/08/21 Alfredo Xavier MD [address] [facility] [place] [id number] Radiation Oncology 12/08/21 Sayra Tello MD [address] [place] [address] Cardiology 02/12/22 Team Status: Active [...] DO Attending Provider, Referring Palmer burton Active Front Desk Worker Relationship Specialty Start Date End Date Daksha Turner MD [address] [place] [address] PCP - General Family Medicine 07/18/21 Sary Jonas [facility] [employer]ucc[employer] Worker Oncology 08/11/21 Lalo Black MD [address] [place] [address] Primary Staff Physician Cardiology 08/19/21 Rahul Knight, RN Research Nurse 09/03/21 Haylee Wilburn MD [address] [place] [address] Oncology 12/08/21 Alfredo Xavier MD [address] [place] [phone] Radiation Oncology 12/08/21 Front Desk Worker Relationship Specialty Start Date End Date Daksha Turner MD [address] [place] [address] PCP - General Family Medicine 07/18/21 Sary Jonas [facility] Pl[employer]ucc[employer] Worker Oncology 08/11/21 Lalo Black MD [address] [place] [address] Primary Staff Physician Cardiology 08/19/21 Rahul Knight, RN Research Nurse 09/03/21 Haylee Wilburn MD [address] [place] [address] Oncology 12/08/21 Alfredo Xavier MD [address] [facility] [place] [address] Radiation Oncology 12/08/21 Sarya Tello MD [address], [address] [place] [address] Cardiology 02/12/22 Team Status: Active Member Role [...] 2024 End: August 14, 2024 Gini Couch OFFICE MACHINE MECHANIC, OFFICE MACHINE MECHANIC-C Attending Provider Active Start: August 14, 2024 End: August 14, 2024 Team Status: Inactive Member Role Status Dates Dr. Daksha Turner MD Primary Care Provider Acti ve Start: August 14, 2024 End: August 14, 2024 Gini Couch OFFICE MACHINE MECHANIC, OFFICE MACHINE MECHANIC-C Attending Provider Active Start: August 14, 2024 End: August 14, 2024 Gini Couch OFFICE MACHINE MECHANIC, OFFICE MACHINE MECHANIC-C Referring Provider Active Start: August 14, 2024 [...] End: August 14, 2024 Gini Couch NP, OFFICE MACHINE MECHANIC-C Attending Provider Active Start: August 14, 2024 End: August 14, 2024 Team Status: Inactive Member Role/Relationship Status Dates Dr. Daksha Turner MD Primary Care Provider Acti ve Start: August 14, 2024 End: August 14, 2024 Gini Couch NP, OFFICE MACHINE MECHANIC-C Attending Provider Active Start: August 14, 2024 End: August 14, 2024 Gini Couch OFFICE MACHINE MECHANIC, OFFICE MACHINE MECHANIC-C Referring Provider Active Start: August 14, 2024 [...] ve Start: September 25, 2024 Gini Couch OFFICE MACHINE MECHANIC, OFFICE MACHINE MECHANIC-C Attending Provider Active Start: September 25, 2024 Gini Couch OFFICE MACHINE MECHANIC, OFFICE MACHINE MECHANIC-C Referring Provider Active Start: September 25, 2024 [...] ve Start: September 25, 2024 Gini Couch OFFICE MACHINE MECHANIC, OFFICE MACHINE MECHANIC-C Referring Provider Active Start: September 25, 2024 Gini Couch OFFICE MACHINE MECHANIC, OFFICE MACHINE MECHANIC-C Other Provider Active Sta rt: September 25, 2024 Dr. Moises Gaona MD Attending Provider Active S tart: September 25, 2024 Team Status: Active Member Role/Relationship Status Dates Dr. Daksha Turner MD Primary Care Provider Acti ve Start: September 26, 2024 Gini Couch OFFICE MACHINE MECHANIC, OFFICE MACHINE MECHANIC-C Attending Provider Active Start: September 26, 2024 Team Status: Active Member Role/Relationship Status Dates Dr. Daksha Turner MD Primary Care Provider Acti ve Start: September 26, 2024 Gini Couch OFFICE MACHINE MECHANIC, OFFICE MACHINE MECHANIC-C Attending Provider Active Start: September 26, 2024 Team Status: Inactive Member Role/Relationship Status Dates Dr. Daksha Turner MD Primary Care Provider Acti ve Start: September 25, 2024 End: September 25, 2024 Gini Couch OFFICE MACHINE MECHANIC, OFFICE MACHINE MECHANIC-C Attending Provider Active Start: September 25, 2024 End: September 25, 2024 Gini Couch OFFICE MACHINE MECHANIC, OFFICE MACHINE MECHANIC-C Referring Provider Active Start: September 25, 2024 End: September 25, 2024 Team Status: Inactive Member Role/Relationship Status Dates Dr. Daksha Turner MD Primary Care Provider Acti ve Start: October 02, 2024 End: October 02, 2024 Dr. Daksha Turner MD Referring Provider Active Start: October 02, 2024 End: October 02, 2024 Gini Couch OFFICE MACHINE MECHANIC, OFFICE MACHINE MECHANIC-C Attending Provider Active Start: October 02, 2024 [...] 2024 End: August 14, 2024 Gini Couch OFFICE MACHINE MECHANIC, OFFICE MACHINE MECHANIC-C Attending Provider Active Start: August 14, 2024 End: August 14, 2024 Team Status: Inactive Member Role/Relationship Status Dates Dr. Daksha Turner MD Primary Care Provider Acti ve Start: August 14, 2024 End: August 14, 2024 iGni Couch OFFICE MACHINE MECHANIC, OFFICE MACHINE MECHANIC-C Attending Provider Active Start: August 14, 2024 End: August 14, 2024 Gini Couch OFFICE MACHINE MECHANIC, OFFICE MACHINE MECHANIC-C Referring Provider Active Start: August 14, 2024 End: August 14, 2024 Team Status: Inactive Member Role/Relationship Status Dates Dr. aDksha Turner MD Primary Care Provider Acti ve [...] 2024 End: September 25, 2024 Gini Couch OFFICE MACHINE MECHANIC, OFFICE MACHINE MECHANIC-C Attending Provider Active Start: September 25, 2024 End: September 25, 2024 Gini Couch OFFICE MACHINE MECHANIC, OFFICE MACHINE MECHANIC-C Referring Provider Active Start: September 25, 2024 [...] ve Start: September 25, 2024 Gini Couch OFFICE MACHINE MECHANIC, OFFICE MACHINE MECHANIC-C Referring Provider Active Start: September 25, 2024 Gini Couch NP, OFFICE MACHINE MECHANIC-C Other Provider Active Sta rt: September 25, 2024 Dr. Moises Gaona MD Attending Provider Active S tart: September 25, 2024 Team Status: Active Member Role/Relationship Status Dates Dr. Daksha Turner MD Primary Care Provider Acti ve Start: September 26, 2024 Gini Couch OFFICE MACHINE MECHANIC, OFFICE MACHINE MECHANIC-C Attending Provider Active Start: September 26, 2024 Team Status: Inactive Member Role/Relationship Status Dates Dr. Daksha Turner MD Primary Care Provider Acti ve Start: October 02, 2024 End: October 02, 2024 Dr. Daksha Turner MD Referring Provider Active Start: October 02, 2024 End: October 02, 2024 Gini Couch OFFICE MACHINE MECHANIC, OFFICE MACHINE MECHANIC-C Attending Provider Active Start: October 02, 2024 End: October 02, 2024 Team Status: Inactive Member Role/Relationship Status Dates Dr. Daksha Turner MD Primary Care Provider Acti ve Start: October 02, 2024 End: October 02, 2024 Gini Couch OFFICE MACHINE MECHANIC, OFFICE MACHINE MECHANIC-C Attending Provider Active Start: October 02, 2024 End: October 02, 2024 Gini Couch OFFICE MACHINE MECHANIC, OFFICE MACHINE MECHANIC-C Referring Provider Active Start: October 02, 2024 [...] or prosecute any alcohol or drug abuse patient.[facility] [place]In the event this information is protected by the Federal Confidentiality of Alcohol and Drug Abuse Patient Records regulations: The Federal rules restrict any use of the information to criminally investigate or prosecute any alcohol or drug abuse patient.[facility] [place]In the event this information is protected by the Federal Confidentiality of Alcohol and Drug Abuse Patient Records regulations: The Federal rules restrict any use of the information to criminally investigate or prosecute any alcohol or drug abuse patient.[facility] [place]In the event this information is protected by the Federal Confidentiality of Alcohol and Drug Abuse Patient Records regulations: The Federal rules restrict any use of the information to criminally investigate or prosecute any alcohol or drug abuse patient.[facility] [place]In the event this information is protected by the Federal Confidentiality of Alcohol and Drug Abuse Patient Records regulations: The Federal rules restrict any use of the information to criminally investigate or prosecute any alcohol or drug abuse patient.[facility] [place]In the event this information is protected by the Federal Confidentiality of Alcohol and Drug Abuse Patient Records regulations: The Federal rules restrict any use of the information to criminally investigate or prosecute any alcohol or drug abuse patient.[facility] OhioIn the event this information is protected by the Federal Confidentiality of Alcohol and Drug Abuse Patient Records regulations: The Federal rules restrict any use of the information to criminally investigate or prosecute any alcohol or drug abuse patient.[facility] OhioIn the event this information is protected by the Federal Confidentiality of Alcohol and Drug Abuse Patient Records regulations: The Federal rules restrict any use of the information to criminally investigate or prosecute any alcohol or drug abuse patient.[facility] [place]In the event this information is protected by the Federal Confidentiality of Alcohol and Drug Abuse Patient Records regulations: The Federal rules restrict any use of the information to criminally investigate or prosecute any alcohol or drug abuse patient.[facility] [place]In the event this information is protected by the Federal Confidentiality of Alcohol and Drug Abuse Patient Records regulations: The Federal rules restrict any use of the information to criminally investigate or prosecute any alcohol or drug abuse patient.[facility] [place]In the event this information is protected by the Federal Confidentiality of Alcohol and Drug Abuse Patient Records regulations: The Federal rules restrict any use of the information to criminally investigate or prosecute any alcohol or drug abuse patient.[facility] [place]In the event this information is protected by the Federal Confidentiality of Alcohol and Drug Abuse Patient Records regulations: The Federal rules restrict any use of the information to criminally investigate or prosecute any alcohol or drug abuse patient.[facility] [place]In the event this information is protected by the Federal Confidentiality of Alcohol and Drug Abuse Patient Records regulations: The Federal rules restrict any use of the information to criminally investigate or prosecute any alcohol or drug abuse patient.[facility] OhioIn the event this information is protected by the Federal Confidentiality of Alcohol and Drug Abuse Patient Records regulations: The Federal rules restrict any use of the information to criminally investigate or prosecute any alcohol or drug abuse patient.[facility] [place]In the event this information is protected by the Federal Confidentiality of Alcohol and Drug Abuse Patient Records regulations: The Federal rules restrict any use of the information to criminally investigate or prosecute any alcohol or drug abuse patient.[facility] [place]In the event this information is protected by the Federal Confidentiality of Alcohol and Drug Abuse Patient Records regulations: The Federal rules restrict any use of the information to criminally investigate or prosecute any alcohol or drug abuse patient.[facility] OhioIn the event this information is protected by the Federal Confidentiality of Alcohol and Drug Abuse Patient Records regulations: The Federal rules restrict any use of the information to criminally investigate or prosecute any alcohol or drug abuse patient.[facility] OhioIn the event this information is protected by the Federal Confidentiality of Alcohol and Drug Abuse Patient Records regulations: The Federal rules restrict any use of the information to criminally investigate or prosecute any alcohol or drug abuse patient.[facility] [place]In the event this information is protected by the Federal Confidentiality of Alcohol and Drug Abuse Patient Records regulations: The Federal rules restrict any use of the information to criminally investigate or prosecute any alcohol or drug abuse patient.[facility] OhioIn the event this information is protected by the Federal Confidentiality of Alcohol and Drug Abuse Patient Records regulations: The Federal rules restrict any use of the information to criminally investigate or prosecute any alcohol or drug abuse patient.[facility] OhioIn the event this information is protected by the Federal Confidentiality of Alcohol and Drug Abuse Patient Records regulations: The Federal rules restrict any use of the information to criminally investigate or prosecute any alcohol or drug abuse patient.[facility] [place]In the event this information is protected by the Federal Confidentiality of Alcohol and Drug Abuse Patient Records regulations: The Federal rules restrict any use of the information to criminally investigate or prosecute any alcohol or drug abuse patient.[facility] [place]In the event this information is protected by the Federal Confidentiality of Alcohol and Drug Abuse Patient Records regulations: The Federal rules restrict any use of the information to criminally investigate or prosecute any alcohol or drug abuse patient.[facility] OhioIn the event this information is protected by the Federal Confidentiality of Alcohol and Drug Abuse Patient Records regulations: The Federal rules restrict any use of the information to criminally investigate or prosecute any alcohol or drug abuse patient.[facility] [place]In the event this information is protected by the Federal Confidentiality of Alcohol and Drug Abuse Patient Records regulations: The Federal rules restrict any use of the information to criminally investigate or prosecute any alcohol or drug abuse patient.[facility] OhioIn the event this information is protected by the Federal Confidentiality of Alcohol and Drug Abuse Patient Records regulations: The Federal rules restrict any use of the information to criminally investigate or prosecute any alcohol or drug abuse patient.[facility] OhioIn the event this information is protected by the Federal Confidentiality of Alcohol and Drug Abuse Patient Records regulations: The Federal rules restrict any use of the information to criminally investigate or prosecute any alcohol or drug abuse patient.[facility] OhioIn the event this information is protected by the Federal Confidentiality of Alcohol and Drug Abuse Patient Records regulations: The Federal rules restrict any use of the information to criminally investigate or prosecute any alcohol or drug abuse patient.[facility] OhioIn the event this information is protected by the Federal Confidentiality of Alcohol and Drug Abuse Patient Records regulations: The Federal rules restrict any use of the information to criminally investigate or prosecute any alcohol or drug abuse patient.[facility] OhioIn the event this information is protected by the Federal Confidentiality of Alcohol and Drug Abuse Patient Records regulations: The Federal rules restrict any use of the information to criminally investigate or prosecute any alcohol or drug abuse patient.[facility] OhioIn the event this information is protected by the Federal Confidentiality of Alcohol and Drug Abuse Patient Records regulations: The Federal rules restrict any use of the information to criminally investigate or prosecute any alcohol or drug abuse patient.[facility] OhioIn the event this information is protected by the Federal Confidentiality of Alcohol and Drug Abuse Patient Records regulations: The Federal rules restrict any use of the information to criminally investigate or prosecute any alcohol or drug abuse patient.[facility] OhioIn the event this information is protected by the Federal Confidentiality of Alcohol and Drug Abuse Patient Records regulations: The Federal rules restrict any use of the information to criminally investigate or prosecute any alcohol or drug abuse patient.[facility] [place]In the event this information is protected by the Federal Confidentiality of Alcohol and Drug Abuse Patient Records regulations: The Federal rules restrict any use of the information to criminally investigate or prosecute any alcohol or drug abuse patient.[facility] [place]In the event this information is protected by the Federal Confidentiality of Alcohol and Drug Abuse Patient Records regulations: The Federal rules restrict any use of the information to criminally investigate or prosecute any alcohol or drug abuse patient.[facility] OhioIn the event this information is protected by the Federal Confidentiality of Alcohol and Drug Abuse Patient Records regulations: The Federal rules restrict any use of the information to criminally investigate or prosecute any alcohol or drug abuse patient.[facility] OhioIn the event this information is protected by the Federal Confidentiality of Alcohol and Drug Abuse Patient Records regulations: The Federal rules restrict any use of the information to criminally investigate or prosecute any alcohol or drug abuse patient.[facility] OhioIn the event this information is protected by the Federal Confidentiality of Alcohol and Drug Abuse Patient Records regulations: The Federal rules restrict any use of the information to criminally investigate or prosecute any alcohol or drug abuse patient.[facility] OhioIn the event this information is protected by the Federal Confidentiality of Alcohol and Drug Abuse Patient Records regulations: The Federal rules restrict any use of the information to criminally investigate or prosecute any alcohol or drug abuse patient.[facility] OhioIn the event this information is protected by the Federal Confidentiality of Alcohol and Drug Abuse Patient Records regulations: The Federal rules restrict any use of the information to criminally investigate or prosecute any alcohol or drug abuse patient.[facility] OhioIn the event this information is protected by the Federal Confidentiality of Alcohol and Drug Abuse Patient Records regulations: The Federal rules restrict any use of the information to criminally investigate or prosecute any alcohol or drug abuse patient.[facility] OhioIn the event this information is protected by the Federal Confidentiality of Alcohol and Drug Abuse Patient Records regulations: The Federal rules restrict any use of the information to criminally investigate or prosecute any alcohol or drug abuse patient.[facility] OhioIn the event this information is protected by the Federal Confidentiality of Alcohol and Drug Abuse Patient Records regulations: The Federal rules restrict any use of the information to criminally investigate or prosecute any alcohol or drug abuse patient.[facility] OhioIn the event this information is protected by the Federal Confidentiality of Alcohol and Drug Abuse Patient Records regulations: The Federal rules restrict any use of the information to criminally investigate or prosecute any alcohol or drug abuse patient.[facility] OhioIn the event this information is protected by the Federal Confidentiality of Alcohol and Drug Abuse Patient Records regulations: The Federal rules restrict any use of the information to criminally investigate or prosecute any alcohol or drug abuse patient.[facility] OhioIn the event this information is protected by the Federal Confidentiality of Alcohol and Drug Abuse Patient Records regulations: The Federal rules restrict any use of the information to criminally investigate or prosecute any alcohol or drug abuse patient.[facility] OhioIn the event this information is protected by the Federal Confidentiality of Alcohol and Drug Abuse Patient Records regulations: The Federal rules restrict any use of the information to criminally investigate or prosecute any alcohol or drug abuse patient.[facility] OhioIn the event this information is protected by the Federal Confidentiality of Alcohol and Drug Abuse Patient Records regulations: The Federal rules restrict any use of the information to criminally investigate or prosecute any alcohol or drug abuse patient.[facility] OhioIn the event this information is protected by the Federal Confidentiality of Alcohol and Drug Abuse Patient Records regulations: The Federal rules restrict any use of the information to criminally investigate or prosecute any alcohol or drug abuse patient.[facility] OhioIn the event this information is protected by the Federal Confidentiality of Alcohol and Drug Abuse Patient Records regulations: The Federal rules restrict any use of the information to criminally investigate or prosecute any alcohol or drug abuse patient.[facility] OhioIn the event this information is protected by the Federal Confidentiality of Alcohol and Drug Abuse Patient Records regulations: The Federal rules restrict any use of the information to criminally investigate or prosecute any alcohol or drug abuse patient.[facility] OhioIn the event this information is protected by the Federal Confidentiality of Alcohol and Drug Abuse Patient Records regulations: The Federal rules restrict any use of the information to criminally investigate or prosecute any alcohol or drug abuse patient.[facility] OhioIn the event this information is protected by the Federal Confidentiality of Alcohol and Drug Abuse Patient Records regulations: The Federal rules restrict any use of the information to criminally investigate or prosecute any alcohol or drug abuse patient.[facility] OhioIn the event this information is protected by the Federal Confidentiality of Alcohol and Drug Abuse Patient Records regulations: The Federal rules restrict any use of the information to criminally investigate or prosecute any alcohol or drug abuse patient.[facility] OhioIn the event this information is protected by the Federal Confidentiality of Alcohol and Drug Abuse Patient Records regulations: The Federal rules restrict any use of the information to criminally investigate or prosecute any alcohol or drug abuse patient.[facility] OhioIn the event this information is protected by the Federal Confidentiality of Alcohol and Drug Abuse Patient Records regulations: The Federal rules restrict any use of the information to criminally investigate or prosecute any alcohol or drug abuse patient.[facility] OhioIn the event this information is protected by the Federal Confidentiality of Alcohol and Drug Abuse Patient Records regulations: The Federal rules restrict any use of the information to criminally investigate or prosecute any alcohol or drug abuse patient.[facility] OhioIn the event this information is protected by the Federal Confidentiality of Alcohol and Drug Abuse Patient Records regulations: The Federal rules restrict any use of the information to criminally investigate or prosecute any alcohol or drug abuse patient.[facility] OhioIn the event this information is protected by the Federal Confidentiality of Alcohol and Drug Abuse Patient Records regulations: The Federal rules restrict any use of the information to criminally investigate or prosecute any alcohol or drug abuse patient.[facility] OhioIn the event this information is protected by the Federal Confidentiality of Alcohol and Drug Abuse Patient Records regulations: The Federal rules restrict any use of the information to criminally investigate or prosecute any alcohol or drug abuse patient.[facility] [place]In the event this information is protected by the Federal Confidentiality of Alcohol and Drug Abuse Patient Records regulations: The Federal rules restrict any use of the information to criminally investigate or prosecute any alcohol or drug abuse patient.[facility] [place]In the event this information is protected by the Federal Confidentiality of Alcohol and Drug Abuse Patient Records regulations: The Federal rules restrict any use of the information to criminally investigate or prosecute any alcohol or drug abuse patient.[facility] [place]In the event this information is protected by the Federal Confidentiality of Alcohol and Drug Abuse Patient Records regulations: The Federal rules restrict any use of the information to criminally investigate or prosecute any alcohol or drug abuse patient.[facility] [place]In the event this information is protected by the Federal Confidentiality of Alcohol and Drug Abuse Patient Records regulations: The Federal rules restrict any use of the information to criminally investigate or prosecute any alcohol or drug abuse patient.[facility] [place]In the event this information is protected by the Federal Confidentiality of Alcohol and Drug Abuse Patient Records regulations: The Federal rules restrict any use of the information to criminally investigate or prosecute any alcohol or drug abuse patient.[facility] OhioIn the event this information is protected by the Federal Confidentiality of Alcohol and Drug Abuse Patient Records regulations: The Federal rules restrict any use of the information to criminally investigate or prosecute any alcohol or drug abuse patient.[facility] [place]In the event this information is protected by the Federal Confidentiality of Alcohol and Drug Abuse Patient Records regulations: The Federal rules restrict any use of the information to criminally investigate or prosecute any alcohol or drug abuse patient.[facility] [place]In the event this information is protected by the Federal Confidentiality of Alcohol and Drug Abuse Patient Records regulations: The Federal rules restrict any use of the information to criminally investigate or prosecute any alcohol or drug abuse patient.[facility] [place]In the event this information is protected by the Federal Confidentiality of Alcohol and Drug Abuse Patient Records regulations: The Federal rules restrict any use of the information to criminally investigate or prosecute any alcohol or drug abuse patient.[facility] [place]In the event this information is protected by the Federal Confidentiality of Alcohol and Drug Abuse Patient Records regulations: The Federal rules restrict any use of the information to criminally investigate or prosecute any alcohol or drug abuse patient.[facility] [place]In the event this information is protected by the Federal Confidentiality of Alcohol and Drug Abuse Patient Records regulations: The Federal rules restrict any use of the information to criminally investigate or prosecute any alcohol or drug abuse patient.[facility] [place]In the event this information is protected by the Federal Confidentiality of Alcohol and Drug Abuse Patient Records regulations: The Federal rules restrict any use of the information to criminally investigate or prosecute any alcohol or drug abuse patient.[facility] [place]In the event this information is protected by the Federal Confidentiality of Alcohol and Drug Abuse Patient Records regulations: The Federal rules restrict any use of the information to criminally investigate or prosecute any alcohol or drug abuse patient.[facility] [place]In the event this information is protected by the Federal Confidentiality of Alcohol and Drug Abuse Patient Records regulations: The Federal rules restrict any use of the information to criminally investigate or prosecute any alcohol or drug abuse patient.[facility] [place]In the event this information is protected by the Federal Confidentiality of Alcohol and Drug Abuse Patient Records regulations: The Federal rules restrict any use of the information to criminally investigate or prosecute any alcohol or drug abuse patient.[facility] [place]In the event this information is protected by the Federal Confidentiality of Alcohol and Drug Abuse Patient Records regulations: The Federal rules restrict any use of the information to criminally investigate or prosecute any alcohol or drug abuse patient.[facility] [place]In the event this information is protected by the Federal Confidentiality of Alcohol and Drug Abuse Patient Records regulations: The Federal rules restrict any use of the information to criminally investigate or prosecute any alcohol or drug abuse patient.[facility] [place]In the event this information is protected by the Federal Confidentiality of Alcohol and Drug Abuse Patient Records regulations: The Federal rules restrict any use of the information to criminally investigate or prosecute any alcohol or drug abuse patient.[facility] [place]In the event this information is protected by the Federal Confidentiality of Alcohol and Drug Abuse Patient Records regulations: The Federal rules restrict any use of the information to criminally investigate or prosecute any alcohol or drug abuse patient.[facility] [place]In the event this information is protected by the Federal Confidentiality of Alcohol and Drug Abuse Patient Records regulations: The Federal rules restrict any use of the information to criminally investigate or prosecute any alcohol or drug abuse patient.[facility] [place]In the event this information is protected by the Federal Confidentiality of Alcohol and Drug Abuse Patient Records regulations: The Federal rules restrict any use of the information to criminally investigate or prosecute any alcohol or drug abuse patient.[facility] [place]In the event this information is protected by the Federal Confidentiality of Alcohol and Drug Abuse Patient Records regulations: The Federal rules restrict any use of the information to criminally investigate or prosecute any alcohol or drug abuse patient.[facility] [place]In the event this information is protected by the Federal Confidentiality of Alcohol and Drug Abuse Patient Records regulations: The Federal rules restrict any use of the information to criminally investigate or prosecute any alcohol or drug abuse patient.[facility] [place]In the event this information is protected by the Federal Confidentiality of Alcohol and Drug Abuse Patient Records regulations: The Federal rules restrict any use of the information to criminally investigate or prosecute any alcohol or drug abuse patient.[facility] [place]In the event this information is protected by the Federal Confidentiality of Alcohol and Drug Abuse Patient Records regulations: The Federal rules restrict any use of the information to criminally investigate or prosecute any alcohol or drug abuse patient.[facility] [place]In the event this information is protected by the Federal Confidentiality of Alcohol and Drug Abuse Patient Records regulations: The Federal rules restrict any use of the information to criminally investigate or prosecute any alcohol or drug abuse patient.[facility] [place]In the event this information is protected by the Federal Confidentiality of Alcohol and Drug Abuse Patient Records regulations: The Federal rules restrict any use of the information to criminally investigate or prosecute any alcohol or drug abuse patient.[facility] [place]In the event this information is protected by the Federal Confidentiality of Alcohol and Drug Abuse Patient Records regulations: The Federal rules restrict any use of the information to criminally investigate or prosecute any alcohol or drug abuse patient.[facility] [place]In the event this information is protected by the Federal Confidentiality of Alcohol and Drug Abuse Patient Records regulations: The Federal rules restrict any use of the information to criminally investigate or prosecute any alcohol or drug abuse patient.[facility] [place]In the event this information is protected by the Federal Confidentiality of Alcohol and Drug Abuse Patient Records regulations: The Federal rules restrict any use of the information to criminally investigate or prosecute any alcohol or drug abuse patient.[facility] [place]In the event this information is protected by the Federal Confidentiality of Alcohol and Drug Abuse Patient Records regulations: The Federal rules restrict any use of the information to criminally investigate or prosecute any alcohol or drug abuse patient.[facility] [place]In the event this information is protected by the Federal Confidentiality of Alcohol and Drug Abuse Patient Records regulations: The Federal rules restrict any use of the information to criminally investigate or prosecute any alcohol or drug abuse patient.[facility] [place]In the event this information is protected by the Federal Confidentiality of Alcohol and Drug Abuse Patient Records regulations: The Federal rules restrict any use of the information to criminally investigate or prosecute any alcohol or drug abuse patient.[facility] [place]In the event this information is protected by the Federal Confidentiality of Alcohol and Drug Abuse Patient Records regulations: The Federal rules restrict any use of the information to criminally investigate or prosecute any alcohol or drug abuse patient.[facility] [place]In the event this information is protected by the Federal Confidentiality of Alcohol and Drug Abuse Patient Records regulations: The Federal rules restrict any use of the information to criminally investigate or prosecute any alcohol or drug abuse patient.[facility] [place]In the event this information is protected by the Federal Confidentiality of Alcohol and Drug Abuse Patient Records regulations: The Federal rules restrict any use of the information to criminally investigate or prosecute any alcohol or drug abuse patient.[facility] [place]In the event this information is protected by the Federal Confidentiality of Alcohol and Drug Abuse Patient Records regulations: The Federal rules restrict any use of the information to criminally investigate or prosecute any alcohol or drug abuse patient.[facility] [place]In the event this information is protected by the Federal Confidentiality of Alcohol and Drug Abuse Patient Records regulations: The Federal rules restrict any use of the information to criminally investigate or prosecute any alcohol or drug abuse patient.[facility] [place]In the event this information is protected by the Federal Confidentiality of Alcohol and Drug Abuse Patient Records regulations: The Federal rules restrict any use of the information to criminally investigate or prosecute any alcohol or drug abuse patient.[facility] [place]In the event this information is protected by the Federal Confidentiality of Alcohol and Drug Abuse Patient Records regulations: The Federal rules restrict any use of the information to criminally investigate or prosecute any alcohol or drug abuse patient.[facility] [place]In the event this information is protected by the Federal Confidentiality of Alcohol and Drug Abuse Patient Records regulations: The Federal rules restrict any use of the information to criminally investigate or prosecute any alcohol or drug abuse patient.[facility] [place]In the event this information is protected by the Federal Confidentiality of Alcohol and Drug Abuse Patient Records regulations: The Federal rules restrict any use of the information to criminally investigate or prosecute any alcohol or drug abuse patient.[facility] [place]In the event this information is protected by the Federal Confidentiality of Alcohol and Drug Abuse Patient Records regulations: The Federal rules restrict any use of the information to criminally investigate or prosecute any alcohol or drug abuse patient.[facility] [place]In the event this information is protected by the Federal Confidentiality of Alcohol and Drug Abuse Patient Records regulations: The Federal rules restrict any use of the information to criminally investigate or prosecute any alcohol or drug abuse patient.[facility] [place]In the event this information is protected by the Federal Confidentiality of Alcohol and Drug Abuse Patient Records regulations: The Federal rules restrict any use of the information to criminally investigate or prosecute any alcohol or drug abuse patient.[facility] [place]In the event this information is protected by the Federal Confidentiality of Alcohol and Drug Abuse Patient Records regulations: The Federal rules restrict any use of the information to criminally investigate or prosecute any alcohol or drug abuse patient.[facility] [place]In the event this information is protected by the Federal Confidentiality of Alcohol and Drug Abuse Patient Records regulations: The Federal rules restrict any use of the information to criminally investigate or prosecute any alcohol or drug abuse patient.[facility] [place]In the event this information is protected by the Federal Confidentiality of Alcohol and Drug Abuse Patient Records regulations: The Federal rules restrict any use of the information to criminally investigate or prosecute any alcohol or drug abuse patient.[facility] [place]In the event this information is protected by the Federal Confidentiality of Alcohol and Drug Abuse Patient Records regulations: The Federal rules restrict any use of the information to criminally investigate or prosecute any alcohol or drug abuse patient.[facility] [place]In the event this information is protected by the Federal Confidentiality of Alcohol and Drug Abuse Patient Records regulations: The Federal rules restrict any use of the information to criminally investigate or prosecute any alcohol or drug abuse patient.[facility] [place]In the event this information is protected by the Federal Confidentiality of Alcohol and Drug Abuse Patient Records regulations: The Federal rules restrict any use of the information to criminally investigate or prosecute any alcohol or drug abuse patient.[facility] [place]In the event this information is protected by the Federal Confidentiality of Alcohol and Drug Abuse Patient Records regulations: The Federal rules restrict any use of the information to criminally investigate or prosecute any alcohol or drug abuse patient.[facility] [place]In the event this information is protected by the Federal Confidentiality of Alcohol and Drug Abuse Patient Records regulations: The Federal rules restrict any use of the information to criminally investigate or prosecute any alcohol or drug abuse patient.[facility] [place]In the event this information is protected by the Federal Confidentiality of Alcohol and Drug Abuse Patient Records regulations: The Federal rules restrict any use of the information to criminally investigate or prosecute any alcohol or drug abuse patient.[facility] [place]In the event this information is protected by the Federal Confidentiality of Alcohol and Drug Abuse Patient Records regulations: The Federal rules restrict any use of the information to criminally investigate or prosecute any alcohol or drug abuse patient.[facility] [place]In the event this information is protected by the Federal Confidentiality of Alcohol and Drug Abuse Patient Records regulations: The Federal rules restrict any use of the information to criminally investigate or prosecute any alcohol or drug abuse patient.[facility] [place]In the event this information is protected by the Federal Confidentiality of Alcohol and Drug Abuse Patient Records regulations: The Federal rules restrict any use of the information to criminally investigate or prosecute any alcohol or drug abuse patient.[facility] [place]In the event this information is protected by the Federal Confidentiality of Alcohol and Drug Abuse Patient Records regulations: The Federal rules restrict any use of the information to criminally investigate or prosecute any alcohol or drug abuse patient.[facility] [place]In the event this information is protected by the Federal Confidentiality of Alcohol and Drug Abuse Patient Records regulations: The Federal rules restrict any use of the information to criminally investigate or prosecute any alcohol or drug abuse patient.[facility] [place]In the event this information is protected by the Federal Confidentiality of Alcohol and Drug Abuse Patient Records regulations: The Federal rules restrict any use of the information to criminally investigate or prosecute any alcohol or drug abuse patient.[facility] [place]In the event this information is protected by the Federal Confidentiality of Alcohol and Drug Abuse Patient Records regulations: The Federal rules restrict any use of the information to criminally investigate or prosecute any alcohol or drug abuse patient.[facility] OhioIn the event this information is protected by the Federal Confidentiality of Alcohol and Drug Abuse Patient Records regulations: The Federal rules restrict any use of the information to criminally investigate or prosecute any alcohol or drug abuse patient.[facility] [place] Reason for Visit (unrecogniz ed section and content) Reason Comments Established Patient Specialty Diagnoses / Procedures Referred By Contac t Referred To Contact Hematology/Oncology / HEMATOLOGY/ONCOLOGY Diagnoses Malignant neoplasm of right kidney, except renal pelvis STUDY PT IRB [id number] ([facility] 1820) C64.1 NCT [id number] PER SLIP Procedures OFFICE/OUTPATIENT ESTABLISHED MOD MDM 30-39 MIN EST PATIENT/[place] [address] [place] [id number] Godfrey Ohara [employer] [address] [place] [address] Referral ID Status Reason Start Date Expiration Date Visits Requested Visits Authorized [id number] Denied Financial Clearance Required - OON Payor OON Notification Letter Clearance Not Met - Admin/Fleet Manager/D irector Advise to Postpone/Resched ule or Not Proceed 10/09/2021 01/07/2022 1 0 Specialty Diagnoses / Procedures [facility] Contact Diagnoses Nonrheumatic mitral valve regurgitation Procedures CATH PLMT L HRT & ARTS W/NJX & ANGIO IMG S&I PRQ TRLUML CORONARY STENT W/ANGIO ONE ART/BRNCH CORONARY ANGIO W CATH PLACE W IMAGE INJECT & INTERP W LT HEART CATH W INJECT LT VENTRGRAPHY INSERT INTRACORONARY STENT-PER MAJOR VESSEL OR BRANCH [facility] [employer]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 [address] [place] [address] Referral ID Status Reason Start Date Expiration Date Visits Re quested Visits Authorized [id number] [address] Specialty Diagnoses / Procedures [facility] To Contact CT IMAGING Diagnoses Malignant neoplasm of right kidney, except renal pelvis (HCC) Renal cell carcinoma, unspecified laterality (HCC) Procedures CT CHEST W IVCON DIAGNOSTIC COMPUTED TOMOGRAPHY THORAX W/CONTRAST Kenneth Chester MD [address] [place] [address] Ct Imaging Referral ID Status Reason Start Date Expiration Date V isits Requested Visits Authorized [id number] Closed Auto-Generate d Referral 07/14/2021 08/28/2021 1 1 Reason Comments Results Reason Comments New Patient Reason Comments Biopsy Request Specialty Diagnoses / Procedures [facility] Referred To Contact RADIO CT SCAN [facility] Diagnoses Malignant neoplasm of kidney, unspecified laterality (HCC) Malignant neoplasm of kidney excluding renal pelvis, unspecified laterality (HCC) Procedures CT ABD/PEL W IVCON CT ABD & PELVIS W/CONTRAST Adriana Hodge MD [address] [place] [address] Scan [facility] [address] [place] [address] Referral ID Status Reason Start Date Expiration Date V isits Requested Visits Authorized [id number] Closed Auto-Generate d Referral 06/26/2021 08/10/2021 1 1 Specialty Diagnoses / Procedures Referred By Contac t Referred To Contact CT IMAGING Diagnoses Malignant neoplasm of kidney, unspecified laterality (HCC) Malignant neoplasm of kidney excluding renal pelvis, unspecified laterality (HCC) Procedures CT ABD/PEL WO IVCON CT ABD & PELVIS W/O CONTRAST Adriana Hodge MD [address] [place] [address] Ct Imaging Referral ID Status Reason Start Date Expiration Date Visits Requested Visits Authorized [id number] Waiting for Response Auto-Genera mandeep Referral Patient [...] &/JOINT IMAGING WHOLE BODY Adriana Hodge MD [address] [place] [address] Molecular & Functional Imaging [address] [place] [address] Referral ID Status Reason Start Date Expiration Date V isits Requested Visits Authorized [id number] Closed Auto-Generate d Referral 06/26/2021 08/10/2021 2 2 Reason Comments Consult Specialty Diagnoses / Procedures Referred By Contac t Referred To Contact Oncology Diagnoses Malignant neoplasm of kidney, unspecified laterality (HCC) Malignant neoplasm of kidney excluding renal pelvis, unspecified laterality (HCC) Procedures CONSULT TO ONCOLOGY OFFICE[facility] 60-74 [facility]UTES Adriana Hodge MD [address] [place] [address] Referral ID Status Reason Start Date Expiration Date V isits Requested Visits Authorized [id number] Closed PCP Requested Referral 06/23/2021 06/23/2022 1 [...] W/O W/CONTRAST MATERIAL Kenneth Chester MD [address] [place] [address] Mr Imaging Referral ID Status Reason Start Date Expiration Date V isits Requested Visits Authorized [id number] Closed Auto-Generate d Referral 07/14/2021 08/28/2021 1 1 Reason Comments Shortness of Breath Hypertension Reason Comments Patient Education lisa Reason Comments Patient Education Reason Comments Blood Pressure Reason Comments Refill Request Reason Onset Date Comments Opened In Error 08/18/2021 Reason Comments Results 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 Patient Specialty Diagnoses / Procedures Referred By Contac t Referred To Contact CT IMAGING Diagnoses SOB (shortness of breath) Procedures CT CHEST W IVCON PE DIAGNOSTIC COMPUTED TOMOGRAPHY THORAX W/CONTRAST Daksha Melo PA-C [address] [place] [address] Ct Imaging Referral ID Status Reason Start Date Expiration Date Visits Requested Visits Authorized [id number] Pending Review Auto-Generat ed Referral 09/02/2021 10/02/2022 1 1 Reason Comments Radio Gen [id number] Reason Comments Patient Update 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 Reason Onset Date Comments Refill Request 10/21/2021 Reason Comments Anesthesia Consult Reason Comments PreOp Call Cardiac Optimization , Warfarin Clearance Reason Comments Returning Patient's Call called to say that surgery was canceled d/t an imaging issue (CT). RNCC will f/u to see if surgery is rescheduled. 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 Reason Comments Recheck Specialty Diagnoses / Procedures Referred By [facility] Referred To Contact HEMATOLOGY/ONCOLOGY Diagnoses c64.1 Procedures OFFICE VISIT Haylee Wilburn MD [address] [facility] [place] [address] [place] [address] Referral ID Status Reason Start Date Expiration Date V isits Requested Visits Authorized [id number] Closed Financial Clearance Not Required Patient Cleared - INN Insurance Found 10/23/2021 03/07/2022 [address] Specialty Diagnoses / Procedures Referred By [facility] Referred To Contact CT IMAGING Diagnoses [id number] neoplasm of right kidney, except renal pelvis (HCC) Procedures CT CHEST W IVCON CT ABD/[place] [address] [place] [address] Referral ID Status Reason Start Date Expiration Date Visits Requested Visits Authorized [id number] Closed Financial Clearance Required - OON Payor OON Notification Letter Patient Cleared - Admin/Fleet Manager/D irector advise to proceed 11/17/2021 01/16/2022 1 0 Reason Comments Patient Update Called patient to in form him that the speciality pharmacy is going to call to set-up delivery time for his chemo medication. Patient verbalized understanding. 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 Reason Comments Informed Consent Reason Onset Date Comments Refill Request 01/22/2022 Specialty Diagnoses / Procedures Referred By Sujatha t Referred To Contact RADIATION ONCOLOGY Diagnoses Renal Cell ca Procedures OFFICE CONSULTATION NEW/ESTAB PATIENT 60 MIN monitor patient after completion of radiation treatment Suman Peterson APRN.BOOSTER ASSEMBLER [address] [place] [id number] [facility] [address] [place] [phone] Referral ID Status Reason Start Date Expiration Date V isits Requested Visits Authorized [id number] Closed OON/Self Pay Override Patient Cleared - INN Insurance Found 12/26/2021 03/26/2022 1 1 Reason Comments New Patient self-referral ANÍBAL [facility] [place].Reason for visit: hospital discharge from, 09-30-21 for new onset A. fib/RVRCardiac: 01/19/2022 EKG / 09/26/2021 Echo / 09/25/2021 EPS: Cardioversion08/05/2021 cardiac cathTelemetry: 09/26/2021 image of EKGLab work: 01/23/2022 through 06/20/2021Imagin01/19/2022 x-ray of the chest /11/20/2021 CT of the chestNote/strands: 09/22 - 09/30/2021 discharge summary Specialty Diagnoses / Procedures Referred By Contac t Referred To Contact CARDIOLOGY Diagnoses Self-referral Procedures FOLLOW-UP/REASSESSMENT Daksha Turner MD [address] [place], [place] [address] [address] [facility] [address] [facility] [address] [address] Referral ID Status Reason Start Date Expiration Date V isits Requested Visits Authorized [id number] Closed OON/Self Pay Override Patient Cleared - INN Insurance Found 12/25/2021 02/23/2022 1 1 Specialty Diagnoses / Procedures Referred By Contac t Referred To Contact HEMATOLOGY/ONCOLOGY Diagnoses Renal cell carcinoma of right kidney (HCC) Metastatic renal cell carcinoma (HCC) Procedures OFFICE VISIT W HEM/ONC Haylee Wilburn MD [address] [place] [address] [address] [place] [place] [address] Referral ID Status Reason Start Date Expiration Date V isits Requested Visits Authorized [id number] Closed OON/Self Pay Override Patient Cleared - INN Insurance Found 02/12/2022 04/13/2022 1 1 Reason Comments Recheck Specialty Diagnoses / Procedures Referred By Sujatha t Referred To Contact HEMATOLOGY/ONCOLOGY Diagnoses Malignant neoplasm of unspecified kidney, except renal pelvis Procedures OFFICE/OUTPATIENT ESTABLISHED MOD MDM 30-39 MIN Haylee Wilburn MD [address] [place] [address] [facility] [facility] [place] [address] Referral ID Status Reason Start Date Expiration Date Visits Requested Visits Authorized [id number] Pending Review OON/Self Pay Override 03/11/2022 06/09/2022 1 1 Reason Onset Date Comments SPP Oral Oncology/hematology - Treatment Referra l 03/12/2022 Inlyta Insurance Authorization 03/12/2022 Pending PA Reason Comments Appointment Reason Onset Date Comments Refill Request 03/16/2022 Inlyta to Accred o Reason Comments 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 [employer] provides no warranty or guarantee of the accuracy or completeness of information in this document.
[2024-10-19] MEDS: 0.9% Normal Saline (1000mL) 1,000 ML 125 ML IV ×2 (05:51→13:14)
[2024-10-19] MEDS: metroNIDAZOLE 500 MG/100 ML BAG 100 MG IV ×3 (05:51→20:36)
[2024-10-19 06:18] LABS: Hematocrit 43.5 % (40-54); Hemoglobin 14.7 g/dL (13.0-16.5); Immature Granulocytes Count 0.010 X10^3/uL (0.0-0.0); Mean Corp Hgb Conc 33.8 g/dL (32-36); Mean Corpuscular Volume 97.5 fL (80-94); Mean Platelet Vol. 10.7 fl (6.2-12.0); NRBC Flagged by Analyzer 0 % (0-5); POSITIVE MORPHOLOGY YES; Platelet Count 183 K/mm3 (150-450); RBC Distribution Width CV 18.3 % (11.6-14.6); RBC Distribution Width SD 65.1 fl (35.1-43.9); Red Blood Count 4.46 M/mm3 (4.6-6.2); White Blood Count 4.3 K/mm3 (4.4-11.0)
[2024-10-19] MEDS: Budesonide Respules 0.5 MG/2 ML AMPUL.NEB. INHALATION ×2 (06:41→20:52)
[2024-10-19 07:08] LABS: Anisocytosis 1+
[2024-10-19 07:09] LABS: Differential Indicated SCAN CRITERIA MET
[2024-10-19 07:09] LABS: AST(SGOT) 47 U/L (<=37); Alanine Aminotransfer ALT/SGPT 45 U/L (<=46); Albumin, Serum 3.9 g/dL (3.4-4.8); Alkaline Phosphatase 51 U/L (40-129); Anion Gap 12 (5-15); BUN 32 mg/dL (4-19); BUN/Creat Ratio 12.7 RATIO (10-20); Calcium,Total 8.8 mg/dL (7.6-11.0); Carbon Dioxide 21.3 mmol/L (21.0-32.0); Chloride 105 mmol/L (98-108); Estimated Creatinine Clearance 40.15 ml/min (50-250); Globulin 3.0 g/dL (2.2-4.2); Glucose 82 mg/dL (70-99); Magnesium 2.1 mg/dL (1.5-2.2); Potassium 4.7 mmol/L (3.3-5.1)
[2024-10-19 07:11] LABS: Mucous, Urine 0 SEEN /hpf (<or=2+); Red Blood Cells-Urine 0 SEEN /hpf (0-5); Squamous Epithelial Cells - UA 0 SEEN /hpf (0-5)
[2024-10-19 07:30] LABS: Cholesterol 107 mg/dL (<=200); Low Density Lipoprotein Calc. 45 mg/dL; Triglycerides 101 mg/dL; Very Low Density Lipoprotein 20 mg/dL (5-40); cholesterol:hdl ratio screen 2.58
[2024-10-19 07:52] LABS: Color, Urine Yellow (Yellow); Glucose, Dipstick 100 mg/dl (Normal); Ketone-Dipstick Negative (Negative); Leukocyte Esterase-Dipstick Negative /ul (Negative); Nitrite-Dipstick Negative (Negative); Occult Blood-Urine 10 /ul (Negative); Protein-Dipstick 100 mg/dl (Negative); Specific Gravity, Urine 1.025 (1.002-1.030); Urine Bilirubin Dipstick Negative (Negative)
[2024-10-19 08:16] LABS: Fine Granular Cast- Urine 0-5 SEEN /lpf (0-5)
[2024-10-19] MEDS: APIXABAN 5 MG TABLET PO (09:26)
--- NOTE | 2024-10-19 11:49 | CASEMGMT ---
JOHN ROQUE Assessment Face to Face with patient for initial transition planning/care coordination assessment. JOHN ROQUE introduced self and role at [facility], pt voices understanding. Pt is A&Ox4 and is resting comfortably in bed and is calm. Care providers, pharmacy, and demographics verified. Admitting dx: Diarrhea, Hypotension LACE Strata: 2 PCP: Bari Turner Specialists: MJ, Aram (Nephro), Renata (Pulm), Ayan (Oncology) Preferred Pharmacy: [facility] Insurance: [facility] Prescription Benefit: Yes LNOK: Miya (W) Living Arrangements: Pt lives with his in a single story home with a basement and one step to enter ADLs/IADLs: Indep. 6-Click score is 23 Transportation: Self, DME: Home oxygen through [employer]. Verified pt's current order states 3L continuous via NC and 3L bleed into ASV @ HS. Pt states that he has a concentrator and a portable tank that his can bring in. Pt states that he used to have a pox but needs a new one. Pt states that he can afford one. Pt also has a nebulizer and BP Machine. HHC/SNF: denies hx or needs Pt?s goal: Home Plan: Home with pt's , follow for updated oxygen rx needs. Pt states that he feels safe returning home with his SO at the time of DC and denies further needs or concerns. Report given to HIDE OR SKIN BUFFER CM. Abdirahman Callahan RN, CM
--- NOTE | 2024-10-19 16:37 | PCM.PN.BLA ---
Progress Note Blood pressures are little bit on the softer side so we will hold his Coreg today. Awaiting evaluation by gastroenterology secondary to his heme positive stools so far stool studies are negative though he does have stool lactoferrin coming back positive. His renal function does appear to be close to baseline we will continue with his IV fluids for 2 bags.
[2024-10-19] MEDS: Sodium Chloride 0.65% 1 SPRAY SPRAY.BTL 2 SPRAY NASAL (16:42)
[2024-10-20] VITALS (8 sets, daily range): BP systolic 96–117; BP diastolic 61–81; PULSE 75–86; RESP 18; TEMP 35.8–36.6; O2SAT 93–100; BMI 35.2
[2024-10-20] MEDS: metroNIDAZOLE 500 MG/100 ML BAG 100 MG IV ×3 (06:12→21:37)
[2024-10-20] MEDS: 0.9% Saline Lock 10 ML Syringe IV ×2 (06:12→23:25)
[2024-10-20] MEDS: Budesonide Respules 0.5 MG/2 ML AMPUL.NEB. INHALATION ×2 (06:59→19:41)
[2024-10-20 07:42] LABS: Hematocrit 36.6 % (40-54); Hemoglobin 12.9 g/dL (13.0-16.5); Immature Granulocytes Count 0.010 X10^3/uL (0.0-0.0); Mean Corp Hgb Conc 35.2 g/dL (32-36); Mean Corpuscular Volume 96.8 fL (80-94); Mean Platelet Vol. 11.0 fl (6.2-12.0); NRBC Flagged by Analyzer 0 % (0-5); Platelet Count 165 K/mm3 (150-450); RBC Distribution Width CV 18.2 % (11.6-14.6); RBC Distribution Width SD 64.3 fl (35.1-43.9); Red Blood Count 3.78 M/mm3 (4.6-6.2); White Blood Count 4.4 K/mm3 (4.4-11.0)
[2024-10-20 08:14] LABS: Anion Gap 8 (5-15); BUN 24 mg/dL (4-19); BUN/Creat Ratio 11.3 RATIO (10-20); Calcium,Total 8.3 mg/dL (7.6-11.0); Carbon Dioxide 21.0 mmol/L (21.0-32.0); Chloride 108 mmol/L (98-108); Estimated Creatinine Clearance 47.73 ml/min (50-250); Glucose 76 mg/dL (70-99); Potassium 4.5 mmol/L (3.3-5.1)
[2024-10-20 09:00] LABS: Magnesium 2.0 mg/dL (1.5-2.2)
--- NOTE | 2024-10-20 15:36 | PN.HOSP_ITS ---
Subjective Subjective Being a little bit better today. Renal function is improved. Hemoglobin is down but this is dilutional. Objective Data Objective Data Vital Signs: Vital Signs Temp Pulse Resp BP Pulse Ox O2 Del Method O2 Flow Rate 96.4 F L 77 18 106/69 98 Nasal Cannula 3 10/20/24 15:28 10/20/24 15:28 10/20/24 15:28 10/20/24 15:28 10/20/24 15:28 10/20/24 15:28 10/20/24 15:28 Oxygen Flow Rate (L/min) 3 Oxygen Delivery Method Nasal Cannula Weight: 252 lb 13.923 oz Body Mass Index (BMI) 35.2 Intake & Output: Intake and Output for Last 24 Hours 10/19/24 10/20/24 10/21/24 03:59 03:59 03:59 Intake Total 1000 / 1000 3722.92 / 3722.92 600 / 600 Balance 1000 / 1000 3722.92 / 3722.92 600 / 600 Lab / Micro Data 10/20/24 06:45 10/20/24 06:45 Labs: Laboratory Results - last 24 hr 10/19/24 16:41: POC Glucose 78 10/19/24 20:34: POC Glucose 86 10/20/24 06:11: POC Glucose 95 10/20/24 06:45: WBC 4.4, RBC 3.78 L, Hgb 12.9 L, Hct 36.6 L, MCV 96.8 H, MCH 34.1 H, MCHC 35.2, RDW Std Deviation 64.3 H, RDW Coeff of Lizzie 18.2 H, Plt Count 165, MPV 11.0, Immature Gran % (Auto) 0.200, Neut % (Auto) 63.4, Lymph % (Auto) 21.9, [place] % (Auto) 10.7 H, Eos % (Auto) 3.6, Baso % (Auto) 0.2, Absolute Neuts (auto) 2.8, Absolute Lymphs (auto) 0.96, Nucleated RBC % 0, Sodium 137, Potassium 4.5, Chloride 108, Carbon Dioxide 21.0, Anion Gap 8, BUN 24 H, C reatinine 2.12 H, Estim Creat Clear Calc 47.73 L, Est GFR (MDRD) Non-Af 35 L, BUN/Creatinine Ratio 11.3, Glucose 76, Calcium 8.3, Magnesium 2.0 10/20/24 11:41: POC Glucose 81 Micro: Microbiology 10/19/24 06:40 Stool Stool Lactoferrin - Final 10/19/24 06:40 Stool Stool Occult Blood (STEVENSON) - Final Occult Blood Positive 10/18/24 22:00 Stool Enteric Bacteriology - Final 10/18/24 23:25 Mucosa - Nose SARS-CoV-2, Influenza & RSV (PCR) - Final 10/18/24 22:00 Stool Clostridioides difficile (PCR) - Final Physical Exam Narrative General: Alert, Oriented x3, Cooperative, No apparent distress HEENT: Atraumatic, PERRLA, EOMI, Normocephalic Oral: Moist Mucosa Neck: Supple, No JVD Lungs: Diminished, Normal air movement, No rhonchi, No wheeze, No rales Cardiovascular: Regular rate, Regular Rhythm, Normal S1, Normal S2, No murmurs Abdomen: Soft, Non Tender, Non-Distended, No Hepato-splenomegaly Extremities: No edema, Capillary Refill Less than 3 Seconds Skin: No rashes, No breakdown Musculoskeletal: No Tenderness to Palpation of Joints or Extremities Neurological: No focal neurological deficits, moves all extremities Psych/Mental Status: Normal Affect, Appropriate Assessment & Plan Assessment/Plan (1) Diarrhea: QUALIFIERS: Diarrhea type: presumed infectious Qualified Code(s): R19.7 - Diarrhea, unspecified (2) Hypotension due to hypovolemia: PLAN: Plan 1. Acute on chronic diarrhea with positive occult exacerbated by anticoagulation/hypotension due to dehydration ? Hemoglobin is not terrible, it is dropped to 12.9 but this is likely dilutional will recheck in the morning ? Stool studies so far have all come back negative though ova and parasites are pending. He denies any well water or fresh water interactions ? Continue to encourage p.o. intake ? He is complaining of gas pain, will order simethicone ? Appreciate GIs assistance ? Baseline renal function is around 2, peak creatinine on admission was 2.77 down to 2.12 today with IV fluids. He does have a history of CKD 3 we will continue to monitor ? Blood pressures are improved continue to hold his losartan but can continue with his Coreg ? CT of the abdomen pelvis negative for any acute pathology, he does endorse episodes of nausea and vomiting so this acute worsening could be related to a gastroenteritis ? Continue with Flagyl 2. Chronic systolic CHF/essential HTN/chronic A-fib/HLD ? Hold his losartan but continue with Coreg ? Will monitor his blood pressure make adjustments as necessary ? Continue with Eliquis and monitor his hemoglobin ? Continue with Lipitor ? Echo on 09/25/2024 with an EF of 50% with mild concentric LVH 3. CKD 3 in the setting of a right nephrectomy for metastatic renal cancer ? Renal function is returning to baseline ? Never quite reached the level of an VIMAL 4. DM2 ? Will hold his home meds ? Sliding scale insulin ? Accu-Cheks ACHS ? Will monitor and make adjustments as necessary ? A1c of 7 5. Iron deficiency anemia ? Continue with his iron supplementation 6. Anxiety/depression ? Stable ? Continue with his Zoloft 7. GERD ? Stable ? Continue with PPI DVT: Larry Charges/Coding Visit Charges Inpatient E&M: 22562 Subs Hosp L2
[2024-10-20] MEDS: MELATONIN 3 MG TABLET PO (23:25)
[2024-10-21 02:38] VITALS: PULSE 78; RESP 18; O2SAT 96
[2024-10-21 03:41] VITALS: BP 105/66; PULSE 84; RESP 18; TEMP 35.9; O2SAT 100
[2024-10-21 03:44] VITALS: O2SAT 100
[2024-10-21 05:40] LABS: Hematocrit 35.2 % (40-54); Hemoglobin 11.9 g/dL (13.0-16.5); Immature Granulocytes Count 0.020 X10^3/uL (0.0-0.0); Mean Corp Hgb Conc 33.8 g/dL (32-36); Mean Corpuscular Volume 96.7 fL (80-94); Mean Platelet Vol. 10.2 fl (6.2-12.0); NRBC Flagged by Analyzer 0.4 % (0-5); Platelet Count 156 K/mm3 (150-450); RBC Distribution Width CV 18.3 % (11.6-14.6); RBC Distribution Width SD 64.2 fl (35.1-43.9); Red Blood Count 3.64 M/mm3 (4.6-6.2); White Blood Count 5.2 K/mm3 (4.4-11.0)
[2024-10-21 06:00] VITALS: BMI 35.7
[2024-10-21] MEDS: 0.9% Saline Lock 10 ML Syringe IV (06:03)
[2024-10-21] MEDS: metroNIDAZOLE 500 MG/100 ML BAG 100 MG IV (06:04)
[2024-10-21 06:14] LABS: Anion Gap 9 (5-15); BUN 19 mg/dL (4-19); BUN/Creat Ratio 10.3 RATIO (10-20); Calcium,Total 8.4 mg/dL (7.6-11.0); Carbon Dioxide 18.2 mmol/L (21.0-32.0); Chloride 108 mmol/L (98-108); Estimated Creatinine Clearance 54.49 ml/min (50-250); Glucose 106 mg/dL (70-99); Potassium 4.4 mmol/L (3.3-5.1)
[2024-10-21] MEDS: Budesonide Respules 0.5 MG/2 ML AMPUL.NEB. INHALATION (07:07)
[2024-10-21 07:10] VITALS: PULSE 71; RESP 16; O2SAT 94
--- NOTE | 2024-10-21 07:34 | DCINST_ITS ---
Discharge Instructions DC O2, CPAP, BIPAP needs Home O2 Discharge instructions: No Dressing / Incision Discharge Activity: Return to Normal Activity Dressing / Incision Call your doctor if you observe: Fever of 101 or Higher, Shortness of breath, Dizziness, Fainting spells, Swelling in the ankles, Chest pain and Increased palpitations (irregular heartbeat) Follow Up Care Test Results: Test results from this visit will be discussed in further detail at your follow- up appointment, if applicable. Discharge Plan Admission Admit Date/Time: 10/19/24 04:52 Attending Provider: Marquise Padilla Primary Care Provider: Bari Turner Consulting Providers: Mynor Chavez Discharge Orders/Prescriptions Prescriptions: Continued losartan 50 mg tablet 50 mg PO DAILY Qty: 90 3RF Ozempic 0.25 mg or 0.5 mg (2 mg/3 mL) pen injector 0.25 mg subcut QWEEK Eliquis 5 mg tablet 5 mg PO BID Qty: 60 11RF dapagliflozin propanediol [Farxiga] 5 mg tablet 5 mg PO QDAY calcitriol 0.25 mcg capsule 0.25 mcg PO QDAY tizanidine 4 mg capsule 4 mg PO Q8H PRN (Reason: muscle spasticity) bumetanide 2 mg tablet 2 mg PO ONCE (DME) Handicap Placard See Rx Instructions .Route .MEDSUPPLY Qty: 1 0RF Rx Instructions: Exp: 10/13/2028 pantoprazole 40 mg tablet,delayed release (DR/EC) 40 mg PO DAILY Qty: 30 0RF ferrous sulfate 325 mg (65 mg iron) Tablet 325 mg PO BID Qty: 30 0RF rosuvastatin 40 mg Tablet 40 mg PO DAILY Qty: 30 0RF Trelegy Ellipta 100-62.5-25 mcg blister with device 1 inh inhalation DAILY Qty: 28 0RF loperamide 2 mg capsule 2 mg PO 4X/DAY PRN PRN (Reason: diarrhea) mirtazapine 15 mg tablet 15 mg PO QHS carvedilol 12.5 mg tablet 12.5 mg PO BID Qty: 180 3RF cabozantinib 20 mg tablet 20 mg PO QDAY Held spironolactone 25 mg tablet 25 mg PO DAILY Qty: 90 3RF Hold Instructions: Resume on 10/23/24. albuterol sulfate 2.5 mg /3 mL (0.083 %) solution for nebulization 2.5 mg inhalation PRN PRN (Reason: Shortness Of Breath) Qty: 75 0RF Hold Instructions: Resume on 10/23/24. Discontinued potassium chloride 20 mEq tablet extended release 20 meq PO DAILY Qty: 30 0RF Referrals / Follow Up: Bari Turner MD [Primary Care Provider] - Within 1 Week FriendSachin DO [Med Staff - Active Staff] - Within 1 Month Disposition Disposition (needs filled in before D/C Order can be placed): Home, Self Care
[2024-10-21 10:01] VITALS: BP 101/63; PULSE 89; RESP 18; TEMP 36.7; O2SAT 99
[2024-10-21 10:10] VITALS: O2SAT 100
--- NOTE | 2024-10-21 14:41 | PCM.DC.SUM ---
Providers Date of Admission: 10/19/24 Primary Care Physician: Dr. Bari Turner MD Consultations 10/19/24 06:16 Consult: Gastroenterology Routine Consulting Provider: [facility] Reason for Consult: Chronic Diarrhea. EMERGENT Consult: No MD Notified: Yes Date Notified: 10/19/24 Time Notified: 09:23 Method of Notification: Text Reason For Visit: DIARRHEA, HYPOTENSION, HX OF RIGHT NEPHRECTOMY Diagnosis Discharge Diagnosis (1) Diarrhea: Status: Acute Code(s): R19.7 - Diarrhea, unspecified Qualifiers: Diarrhea type: presumed infectious Qualified Code(s): R19.7 - Diarrhea, unspecified (2) Hypotension due to hypovolemia: Status: Acute Code(s): E86.1 - Hypovolemia Medications at Discharge Home Medications albuterol sulfate 2.5 mg/3 mL (0.083 %) solution for nebulization 2.5 mg (3 mL) inhalation PRN PRN Shortness Of Breath #75 mL 06/29/22 ferrous sulfate 325 mg (65 mg iron) tablet 325 mg PO BID supplement #30 tabs 06/29/22 fluticasone fur. 100 mcg-umeclid 62.5 mcg-vilant 25 mcg inhalat.powder (Trelegy Ellipta) 1 inh inhalation DAILY breathing #28 ea 06/29/22 pantoprazole 40 mg tablet,delayed release 40 mg PO DAILY gerd #30 tabs 06/29/22 rosuvastatin 40 mg tablet 40 mg PO DAILY cholesterol #30 tabs 06/29/22 losartan 50 mg tablet 50 mg PO DAILY blood pressure #90 tabs 09/29/22 spironolactone 25 mg tablet 25 mg PO DAILY diuretic #90 tabs 09/29/22 Held on 10/21/24. Instructions: Resume on 10/23/24. carvedilol 12.5 mg tablet 12.5 mg PO BID blood pressure #180 TABLETS 06/04/24 semaglutide 0.25 mg or 0.5 mg (2 mg/3 mL) subcutaneous pen injector (Ozempic) 0.25 mg subcut QWEEK diabetes 06/20/24 cabozantinib 20 mg tablet 20 mg PO QDAY cancer 08/09/24 apixaban 5 mg tablet (Eliquis) 5 mg PO BID blood thinner #60 tabs 08/14/24 Handicap Placard #1 ea 10/02/24 bumetanide 2 mg tablet 2 mg PO ONCE water pill 10/02/24 Held on 10/21/24. Instructions: Resume on 10/23/24. calcitriol 0.25 mcg capsule 0.25 mcg PO QDAY supplement 10/02/24 dapagliflozin propanediol 5 mg tablet (Farxiga) 5 mg PO QDAY CKD 10/02/24 tizanidine 4 mg capsule 4 mg PO Q8H PRN muscle spasticity 10/02/24 loperamide 2 mg capsule 2 mg PO 4X/DAY PRN PRN diarrhea 10/19/24 mirtazapine 15 mg tablet 15 mg PO QHS antidepressant 10/19/24 Hospital Course Operations None Procedures None Summary of Care Provided Minutes Spent on Discharge: 33 Hospital Course: Per HPI: YEFRI YANEZ, is a 59 M with a past medical history of essential hypertension; on carvedilol twice daily, losartan, spironolactone and bumetanide, hyperlipidemia; on rosuvastatin, chronic tobacco abuse; with subsequent COPD, chronic hypoxic respiratory failure; on 3L NC continuous, obesity (class II); with BMI of 35.3 this admission, NIMCO; on CPAP, DM-2; of unknown control on dapagliflozin and semaglutide, chronic atrial fibrillation; s/p DCCV (2021) on apixaban twice daily, history of CHF; with preserved LVEF of ~50% with mild concentric LVH, borderline global hypokinesis of the left ventricle and [id number] (1-2+) eccentric mitral valve insufficiency, mild (1+) tricuspid valve insufficiency and moderate (2+) eccentric aortic valve insufficiency on recent echocardiogram done here on September 25, 2024, history of metastatic renal cancer to the bone; s/p Right nephrectomy on cabozantinib followed by Dr. Botello of oncology, CKD; stage IIIb-IV, HIRA; on ferrous sulfate twice daily, depression; on sertraline, history of muscle spasms; on tizanidine twice daily as needed, GERD; on pantoprazole, chronic diarrhea (for months) and OA who presents to [facility] ER complaining of abdominal pain and diarrhea. Mr. Yanez reports his symptoms began approximately 1 week prior to admission with an acute worsening of his chronic diarrhea causing him to feel dehydrated. He also admits to generalized cramping abdominal pain in addition to bloating with nausea with the patient feeling like he is becoming dehydrated. He states his last colonoscopy was more than 10 years ago and he is interested to find solutions for his diarrhea because he is going to the bathroom frequently at night. He denies associated fever, chills, vomiting, constipation, blood in stools, recent antibiotics, known sick contacts, significant travel, dysuria, hematuria, headache or rash. In the ER he underwent CT scan of the abdomen and pelvis without contrast that revealed previous Right-sided nephrectomy with multifocal bone Metastatic disease and CXR that revealed Right lateral chest wall mass complicated by acute worsening of chronic Diarrhea and transient Hypotension of 87/45 mmHg noted shortly after admission and he was then admitted to the PCU for ongoing care for stated is expected to extend beyond 2 midnights. Hospital Course: 1. Acute on chronic diarrhea with positive occult exacerbated by anticoagulation/hypotension due to dehydration?59-year-old male with a history of metastatic renal cancer and a chest wall mass presented to the hospital with hypotension due to dehydration as well as acute on chronic diarrhea. He has had diarrhea for several months likely related to either his Ozempic or Farxiga. It has improved here in the hospital but no fecal studies were positive for any organism though ova and parasites are pending. Given the lack of fever and leukocytosis I will not continue Flagyl on discharge as am not sure from treating anything at this time, I do recommend that his PCP follow-up with his ova and parasite testing is that we will take into next week to come back. He does deny any well water or fresh water sources. He did get some relief of his abdominal pain with simethicone so we did discuss obtaining this as an outpatient. His renal function did improve, on the day of discharge she was 1.87 with a baseline of around 2, therefore I recommend that he hold his Bumex and Aldactone for another day and can restart on Wednesday. I am he can restart his Eliquis tomorrow. I do recommend outpatient follow-up for lab work and monitoring his hemoglobin. While there was some concern for possible GI bleed his hemoglobin did not drop significantly and he did not notice any dark stools or bright red blood with any bowel movements. I do recommend outpatient follow-up with gastroenterology however. I discussed with him the plan for discharge today and he expressed understanding of the risks and benefits of going home and would like to go home today. 2. Chronic systolic heart failure, essential hypertension, chronic A-fib, hyperlipidemia, CKD 3 in the setting of right nephrectomy for metastatic renal cancer, type 2 diabetes, iron deficiency anemia, anxiety, depression, GERD are all chronic medical conditions which complicate his care. His home medications were continued where appropriate Physical Exam Narrative General: Alert, Oriented x3, Cooperative, No apparent distress HEENT: Atraumatic, PERRLA, EOMI, Normocephalic Oral: Moist Mucosa Neck: Supple, No JVD Lungs: Diminished, Normal air movement, No rhonchi, No wheeze, No rales Cardiovascular: Regular rate, Regular Rhythm, Normal S1, Normal S2, No murmurs Abdomen: Soft, Non Tender, Non-Distended, No Hepato-splenomegaly Extremities: No edema, Capillary Refill Less than 3 Seconds Skin: No rashes, No breakdown Musculoskeletal: No Tenderness to Palpation of Joints or Extremities Neurological: No focal neurological deficits, moves all extremities Psych/Mental Status: Normal Affect, Appropriate Weight / BMI Weight Weight: 256 lb 6.362 oz Body Mass Index (BMI) 35.7 ABG / Lab / Microbiology Data 10/21/24 05:14 10/21/24 05:14 Laboratory: Laboratory Results - last 24 hr 10/20/24 16:34: POC Glucose 101 10/20/24 21:30: POC Glucose 81 10/21/24 05:14: WBC 5.2, RBC 3.64 L, Hgb 11.9 L, Hct 35.2 L, MCV 96.7 H, MCH 32.7 H, MCHC 33.8, RDW Std Deviation 64.2 H, RDW Coeff of Lizzie 18.3 H, Plt Count 156, MPV 10.2, Immature Gran % (Auto) 0.400, Neut % (Auto) 63.8, Lymph % (Auto) 22.5, Alfalfa % (Auto) 8.9, Eos % (Auto) 4.0, Baso % (Auto) 0.4, Absolute Neuts (auto) 3.3, Absolute Lymphs (auto) 1.17, Nucleated RBC % 0.4, Sodium 136, Potassium 4.4, Chloride 108, Carbon Dioxide 18.2 L, Anion Gap 9, BUN 19, Creatinine 1.87 H, Estim Creat Clear Calc 54.49, Est GFR (MDRD) Non-Af 41 L, BUN/Creatinine Ratio 10.3, Glucose 106 H, Calcium 8.4 10/21/24 06:05: POC Glucose 96 Microbiology: Microbiology 10/19/24 06:40 Stool Stool Lactoferrin - Final 10/19/24 06:40 Stool Stool Occult Blood (STEVENSON) - Final Occult Blood Positive 10/18/24 22:00 Stool Enteric Bacteriology - Final 10/18/24 23:25 Mucosa - Nose SARS-CoV-2, Influenza & RSV (PCR) - Final 10/18/24 22:00 Stool Clostridioides difficile (PCR) - Final D/C Instructions Call your doctor if you observe: Fever of 101 or Higher, Shortness of breath, Dizziness, Fainting spells, Swelling in the ankles, Chest pain and Increased palpitations (irregular heartbeat) DC O2, CPAP, BIPAP Needs Home O2 Discharge instructions: No Meaningful Use Info Meaningful Use Meaningful Use Diagnoses (Choose all that apply): None applicable Discharge Plan Admission Admit Date/Time: 10/19/24 04:52 Attending Provider: Marquise Padilla Primary Care Provider: Bari Turner Consulting Providers: Mynor Chavez Discharge Orders/Prescriptions Prescriptions: Continued losartan 50 mg tablet 50 mg PO DAILY Qty: 90 3RF Ozempic 0.25 mg or 0.5 mg (2 mg/3 mL) pen injector 0.25 mg subcut QWEEK Eliquis 5 mg tablet 5 mg PO BID Qty: 60 11RF dapagliflozin propanediol [Farxiga] 5 mg tablet 5 mg PO QDAY calcitriol 0.25 mcg capsule 0.25 mcg PO QDAY tizanidine 4 mg capsule 4 mg PO Q8H PRN (Reason: muscle spasticity) (DME) Handicap Placard See Rx Instructions .Route .MEDSUPPLY Qty: 1 0RF Rx Instructions: Exp: 10/13/2028 albuterol sulfate 2.5 mg /3 mL (0.083 %) solution for nebulization 2.5 mg inhalation PRN PRN (Reason: Shortness Of Breath) Qty: 75 0RF pantoprazole 40 mg tablet,delayed release (DR/EC) 40 mg PO DAILY Qty: 30 0RF ferrous sulfate 325 mg (65 mg iron) Tablet 325 mg PO BID Qty: 30 0RF rosuvastatin 40 mg Tablet 40 mg PO DAILY Qty: 30 0RF Trelegy Ellipta 100-62.5-25 mcg blister with device 1 inh inhalation DAILY Qty: 28 0RF loperamide 2 mg capsule 2 mg PO 4X/DAY PRN PRN (Reason: diarrhea) mirtazapine 15 mg tablet 15 mg PO QHS carvedilol 12.5 mg tablet 12.5 mg PO BID Qty: 180 3RF cabozantinib 20 mg tablet 20 mg PO QDAY Held spironolactone 25 mg tablet 25 mg PO DAILY Qty: 90 3RF Hold Instructions: Resume on 10/23/24. bumetanide 2 mg tablet 2 mg PO ONCE Hold Instructions: Resume on 10/23/24. Discontinued potassium chloride 20 mEq tablet extended release 20 meq PO DAILY Qty: 30 0RF Referrals / Follow Up: Bari Turner MD [Primary Care Provider] - Within 1 Week Sachin Lombardo DO [Med Staff - Active Staff] - Within 1 Month Disposition Disposition (needs filled in before D/C Order can be placed): Home, Self Care Charges/Coding Visit Charges Inpatient E&M: 81592 Disch Hosp >30min
== END 2024-10-21 11:20 | disposition home or self-care (01) | DRG 394 ==
LOC: ED 10-19 01:56 → PCU 10-19 05:03
PROVIDERS: Admitting Provider Internal Medicine; Emergency Provider Student in an Organized Health Care Education/Training Program; PCP Family Medicine; Referring Provider Student in an Organized Health Care Education/Training Program; Visit Provider Family Medicine
DX: K52.1 Toxic gastroenteritis and colitis (principal); J96.11 Chronic respiratory failure with hypoxia; C79.51 Secondary malignant neoplasm of bone; C64.1 Malignant neoplasm of right kidney, except renal pelvis; I13.0 Hypertensive heart and chronic kidney disease with heart failure and stage 1 through stage 4 chronic kidney disease, or unspecified chronic kidney disease; I50.22 Chronic systolic (congestive) heart failure; I48.20 Chronic atrial fibrillation, unspecified; N18.4 Chronic kidney disease, stage 4 (severe); D63.1 Anemia in chronic kidney disease; D63.0 Anemia in neoplastic disease; E86.0 Dehydration; E11.22 Type 2 diabetes mellitus with diabetic chronic kidney disease; J44.9 Chronic obstructive pulmonary disease, unspecified; I08.3 Combined rheumatic disorders of mitral, aortic and tricuspid valves; F32.A Depression, unspecified; Z68.35 Body mass index [BMI] 35.0-35.9, adult; E86.1 Hypovolemia; D50.9 Iron deficiency anemia, unspecified; E78.5 Hyperlipidemia, unspecified; M19.90 Unspecified osteoarthritis, unspecified site; K21.9 Gastro-esophageal reflux disease without esophagitis; F17.210 Nicotine dependence, cigarettes, uncomplicated; F41.9 Anxiety disorder, unspecified; G47.33 Obstructive sleep apnea (adult) (pediatric); Z79.01 Long term (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 of 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; Z79.85 Long-term (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 of injectable non-insulin antidiabetic drugs; Z79.899 Other long term (current) drug therapy; Z79.51 Long term (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 of inhaled steroids; Z90.5 Acquired absence of kidney; E66.812 Obesity, class 2; Z99.89 Dependence on other enabling machines and devices; T45.515A Adverse effect of 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, initial encounter
CPT/HCPCS: 36415; 71046; 74176; 80048; 80053; 80061; 81001; 82274; 82962; 83036; 83605; 83630; 83690; 83735; 84100; 84443; 85025; 87177; 87209; 87493; 87506; 87631; 94002; 94003; 94640; 94668; 99252; 99284; A4216; G0463; J2405

== ENCOUNTER → 2024-11-01 | Outpatient (CLI) | payer MEDICARE, SELFPAY ==
[2024-11-06 07:07] LABS: Calprotectin, Stool 233 ug/g (0-120)
== END | disposition home or self-care (01) ==
LOC: LABSPEC 14:59
PROVIDERS: PCP Family Medicine; Referring Provider Nurse Practitioner Acute Care; Visit Provider Nurse Practitioner Acute Care
DX: R19.7 Diarrhea, unspecified (principal)
CPT/HCPCS: 83993

== ENCOUNTER 2024-11-13 01:24 | Inpatient (IN) | payer MEDICARE, SELFPAY ==
[2024-11-13] VITALS (17 sets, daily range): BP systolic 65–143; BP diastolic 47–92; PULSE 63–112; RESP 9–21; TEMP 36.2–36.6; O2SAT 95–100; BMI 33.3; BMI 34.4
--- NOTE | 2024-11-13 01:30 | EKG12_ITS ---
Test Reason : DYSRHYTHMIA Blood Pressure : */* mmHG Vent. Rate : 95 BPM Atrial Rate : * BPM P-R Int : * ms QRS Dur : 80 ms QT Int : 350 ms P-R-T Axes : * 63 96 degrees QTcB Int : 439 ms Atrial fibrillation Abnormal ECG Confirmed by Zak Reyes ([id number]), editor continuity and script LISA ADAM ([id number]) on 11/13/2024 9:54:29 AM Referred By: DARNELL Confirmed By: Zak Reyes
[2024-11-13] MEDS: 0.9% Normal Saline (1000mL) 1,000 ML 999 ML IV ×2 (01:54→03:28)
--- OUTSIDE RECORDS SUMMARY | 2024-11-13 01:54 | XMS RPT_ITS | CCD ---
Author Organization [facility] ion Partnership [facility] Care Team Providers Care Hoseman Name Role Phone Unavailable, Family Physician Primary Care Physi terese Unavailable Jillian Maurer DO Primary Care Provider [phone] Daksha Turner MD Primary Care Provider Sumi HAHN, Sary Unavailable Unavailable Lalo Acevedo MD Unavailable Rahul Knight RN Unavailable Madiha vailable Bruno [facility], Safia Unavailable Daksha Turner MD Primary Care Provider Sumi HAHN, Sary Unavailable Unavailable Lalo Acevedo MD Unavailable Rahul Knight RN Unavailable Madiha vailable Bruno [facility], [place] Unavailable Daksha Turner MD Primary Care Provider Lalo Acevedo MD Unavailable Rahul Knight RN Unavailable Madiha vailable Haylee Wilburn MD Unavailable [phone] Alfredo Xavier MD Unavailable [phone] Haylee Wilburn MD Unavailable Unavailable Primary Care Provider Unavailabl Dr. Jose Ramon Rincon Primary Care Provider Dr. Speedy Bass Emergency Provider [phone] Dr. Mehrdad Villalpando Admit Provider [phone] Dr. Mehrdad Villalpando Attending Provider Dr. Mehrdad Villalpando Other Provider Dr. Moises Gaona Attending Provider Dr. Rahul Malone Attending Provider Unavailable Dr. Rahul Malone Other Provider Unavailable Daksha Turner MD Primary Care Provider Sary Teresa Unavailable Unavailable Wayne CLEMENT, Lalo Unavailable Eugene LOPEZ, Rahul Candelaria Unavailable Madiha dee Wilburn MD, Haylee Cunningham Unavailable [phone] Duc CLEMENT, Alfredo Sherwood Unavailable [phone] Daksha Turner Unavailable Unavailable, Family Physician Primary Care Un available Unavailable, Family Physician Consulting Un available Siri Harris Attending Unavailable Daksha Turner Unavailable [phone] Andre Mota Unavailable Unavailable [place], [place] Unavailable Aravind Hernandez Unavailable Unavailable Alyssa London Unavailable Nellie CLEMENT, Sayra Martinez Unavailable [phone] ORNSTEIN, KENNETH Referring Unavailable ROCCHIO, JILLIAN Primary Care Unavailable ORNSTEIN, KENNETH Referring Unavailable ROCCHIO, JILLIAN Primary Care Unavailable ORNSTEIN, KENNETH Referring Unavailable DAKSHA TURNER Primary Care Unavailabl e ORNSTEIN, KENNETH Referring Unavailable DAKSHA TURNER Primary Care Unavailabl e DAKSHA MELO Referring Unavaila ble DAKSHA TURNER Primary Care Unavailabl e JANUSZ TURNERER Abdirahman Primary Care Unavailabl e ORNSTEIN, KENNETH Referring Unavailable DAKSHA TURNER Primary Care Unavailabl e RADHA FALK Attending Unavailable DAKSHA TURNER Primary Care Unavailabl e ATUL FUNG Admitting Unavailable ATUL FUNG Attending Unavailable DAKSHA TURNER Primary Care Unavailabl e ISABEL DAY Admitting Unavailable ISABEL DAY Attending Unavailable DAWIT URBINA MD Attending Unavailable ROCCHIO, JILLIAN Primary Care Unavailable ORNSTEIN, KENNETH Referring Unavailable DAKSHA TURNER Primary Care Unavailabl e GODFREY OHARA Attending Unavailable DAKSHA TURNER Primary Care Unavailabl e ORNSTEIN, KENNETH Referring Unavailable CHO, SUNG JASON L Referring Unavailable DAKSHA TURNER Primary Care Unavailabl e DAKSHA TURNER Primary Care Unavailabl e GENOVEVALALO MAURICIO Referring Unavailable ATUL FUNG Attending Unavailable ORNSTEIN, KENNETH Referring Unavailable DAKSHA TURNER Primary Care Unavailabl e GODFREY OHARA Attending Unavailable ADRIANA HODGE Referring Unavailable ROCCHIO, JILLIAN Primary Care Unavailable JOHN GTZ Referring Unavailable ROCCHIO, JILLIAN Primary Care Unavailable ORNSTEIN, KENNETH Attending Unavailable ADRIANA HODGE Referring Unavailable ROCCHIO, JILLIAN Primary Care Unavailable ORNSTEIN, KENNETH Referring Unavailable ROCCHIO, JILLIAN Primary Care Unavailable ORNSTEIN, KENNETH Referring Unavailable GODFREY OHARA Attending Unavailable ROCCHIO, JILLIAN Primary Care Unavailable STEPHANY CEBALLOS Referring Unavailable ROCCHIO, JILLIAN Primary Care Unavailable DAKSHA TURNER Primary Care Unavailabl e KHAN, ANGELA Admitting Unavailable BILL, ANGELA Attending Unavailable ORNSTEIN, KENNETH Referring Unavailable DKASHA TURNER Primary Care Unavailabl e ORNSTEIN, KENNETH Referring Unavailable DAKSHA TURNER Primary Care Unavailabl e ORNSTEIN, KENNETH Referring Unavailable DAKSHA TURNER Primary Care Unavailabl e DAKSHA TURNER Primary Care Unavailabl e ADRIANA HODGE Referring Unavailable ORNSTEIN, KENNETH Referring Unavailable DAKSHA TURNER Primary Care Unavailabl e ORNSTEIN, KENNETH Referring Unavailable DAKSHA TURNER Primary Care Unavailabl e GODFREY OHARA Attending Unavailable ORNSTEIN, KENNETH Referring Unavailable DAKSHA [...] Unavailabl e DAKSHA MELO Referring Unavaila ble DAKSHA TURNER Primary Care Unavailabl e DAKSHA MELO Referring Unavaila ble DAKSHA TURNER Primary Care Unavailabl e DAKSHA [...] Care Unavailabl e MOUDGIL, LALO Attending Unavailable MOSHANTAGIL, LALO Referring Unavailable MORAYAL, LALO Referring Unavailable DAKSHA TURNER Primary Care Unavailabl e MOSHANTAGIL, LALO Attending Unavailable MOUDGIL, LALO Referring Unavailable DAKSHA TURNER Primary Care Unavailabl e DAKSHA TURNER Primary Care Unavailabl e ORNSTEIN, KENNETH Referring Unavailable DAKSHA MELO Referring Unavaila DAKSHA Mathias Primary Care Unavailabl e ORNSTEIN, KENNETH Referring [...] Unavailable DAKSHA TURNER Primary Care Unavailabl e KENNETH CHESTER Referring Unavailable DAKSHA TURNER Primary Care Unavailabl [...] Dr. Hoa Ma Attending Provider [phone] Dr. Moises Gaona Referring Provider [phone] MARY, Dr. ARAVIND RODRIGUEZ Referring Unavailab raymon Turner, Dr. Daksha Lugo Primary Care Madiha vailable MARY, Dr. ARAVIND RODRIGUEZ Admitting Unavailab le MARY, Dr. ARAVIND RODRIGUEZ Attending Unavailab le MARY, Dr. ARAVIND RODRIGUZE Attending Unavailab raymon Turner, Dr. Daksha Lugo Primary Care Madiha vailable Johnny, Dr. Albright Primary Care Provider Dr. Kei Dunn Emergency Provider [phone] Dr. Dangelo Camacho Admit Provider Dr. Dangeol Camacho Other Provider Dr. Carol Chiu Attending Provider Dr. Carol Chiu Other Provider Dr. Moises Gaona Attending Provider [phone] Moises Gaona Referring Provider [phone] Hoa Ma Attending Provider [phone] HAYLEE WILBURN Attending Unavailable GODFREY OHARA Referring Unavailable DAKSHA TURNER Primary Care Unavailabl e HAYLEE WILBURN Attending Unavailable HAYLEE WILBURN Referring Unavailable DAKSHA TURNER Primary Care Unavailabl e ALFREDO XAVIER Attending Unavailable KARIN COX Referring Unavailable DAKSHA TURNER Primary Care Unavailabl e DUC, EDWARD J Attending Unavailable DUC, MANDEEPWARD J Referring Unavailable JANUSZ TURNERER B Primary Care Unavailabl e DUC, EDWARD J Attending Unavailable DUC, EDWARD J Referring Unavailable DAKSHA TURNER Primary Care Unavailabl e DUC, EDWARD J Referring Unavailable DAKSHA TURNER Primary Care Unavailabl e DUC, EDWARD J Referring Unavailable DAKSHA TURNER Primary Care Unavailabl e DUC, ALFREDO Sherwood Referring Unavailable DAKSHA TURNER Primary Care Unavailabl e DUC, ALFREDO Sherwood Referring Unavailable DAKSHA TURNER Primary Care Unavailabl e DAKSHA TURNER Primary Care Unavailabl e KITTY VALDEZ Referring Unavailable DAKSHA TURNER Primary Care Unavailabl e SUMAN PETERSON Attending Unavailable SUMAN PETERSON Referring Unavailable DAKSHA TURNER Primary Care Unavailabl e SAYRA TELLO Attending Unavailabl e DAKSHA TURNER Referring Unavailabl e DAKSHA TRUNER Primary Care Unavailabl e HAYLEE WILBURN Attending [...] Unavailabl e HAYLEE WILBURN Referring Unavailable DAKSHA TRUNER Primary Care Unavailabl e HAYLEE WILBURN Attending Unavailable HAYLEE WILBURN Referring Unavailable DAKSHA TURNER Primary Care Unavailabl e DAKSHA TURNER Primary Care Unavailabl e Dr. Kassy Banda Emergency Provider [phone] Dr. Alicia Dukes Admit Provider Dr. Alicia Dukes Other Provider Dr. Jesús Che Attending Provider Dr. Jesús Che Other Provider Dr. Jose Ramon Turner Referring Provider Dr. Dangelo Botello Attending Provider Dr. Livan Hastings Emergency Provider Dr. Estelita Lu Admit Provider Dr. Estelita Lu Other Provider Dr. Pau Wei Other Provider Johnny, Dr. Daksha Lugo Primary Care Madiha vailable Johnny, Dr. Daksha Lugo Referring Madiha vailable Mary, Dr. Aravind Rodriguez Attending Unavailab le Johnny, [...] Dr. Dangelo Botello Attending Provider Long GEE, MARLEN Waters Attending Provider Dr. Speedy Bass Emergency [...] Rahul Candelaria Unavailable Madiha dee Tello MD, Sayra N Unavailable Johnny CLEMENT, Dr. Candelaria Primary Care Provider Dr. Daksha Turner MD Attending Provider Johnny CLEMENT, Dr. Candelaria Referring Provider Dr. Isidra Chiu DO Attending Provider Dr. Isidra Chiu DO Referring Provider Johnny CLEMENT, Dr. Candelaria Primary Care Provider Johnny CLEMENT, Dr. Candelaria Attending Provider Johnny CLEMENT, Dr. Candelaria Referring Provider Ayan CLEMENT, Dr. Pierson Attending Provider [phone] Ayan CLEMENT, Dr. Pierson Referring Provider Johnny CLEMENT, Dr. Candelaria Primary Care Provider Khoa PROCESS LINE OPERATOR-C, Gini Attending Provider [phone] Khoa PROCESS LINE OPERATOR-C, Gini Referring Provider [phone] Jimenez CLEMENT, Dr. De Leon Attending Provider Khoa PROCESS LINE OPERATOR-C, Gini Other Provider Johnny CLEMENT, Dr. Candelaria Primary Care Provider Johnny CLEMENT, Dr. Candelaria Referring Provider Johnny CLEMENT, Dr. Candelaria Attending Provider Johnny CLEMENT, Dr. Candelaria Primary Care Provider Johnny CLEMENT, Dr. Candelaria Referring Provider [phone] Manuel CLEMENT, Dr. Martin Referring Provider Unavailab raymon Jackson MD, Dr. Martin Emergency Provider Unavailab le de Dax DO, Dr. Lowe Admit Provider Unavail able de Dax , Dr. Lowe Attending Provider Unav ailable de Dax DO, Dr. Lowe Other Provider Unavail able Valerie CLEMENT, Dr. Marquise Barragan Attending Provider Valerie CLEMENT, Dr. Marquise Barragan Other Provider Yifan PROCESS LINE OPERATOR-CKassy Attending Provider Daksha Turner Primary Care Unavailable Khoa PROCESS LINE OPERATOR, Gini Referring Unavailable Khoa PROCESS LINE OPERATOR, Gini Attending Unavailable Daksha Turner Referring Unavailable Daksha Turner Attending Unavailable Johnny, Daksha Primary Care Unavailable Daksha Turner Referring Unavailable Johnny, Daksha Primary Care Unavailable Dangelo Botello Attending Unavailable Johnny, Daksha Primary Care Unavailable Munira, Sachin Attending Unavailable Daksha Turner Primary Care Unavailable Dangelo Botello Referring Unavailable Dangelo Botello Attending Unavailable RanneyDaksha Attending Unavailable Ranney, Christopher Referring Unavailable [place] Unavailable Ranney, Christopher Primary Care Unavailable Veronica Jackson Referring Unavailable Marquise Padilla Attending Unavailable Rahul Chavez Admitting Unavailable Rahul Chavez Consulting Unavailable RanneyDaksha Attending Unavailable Ranney, Christopher Referring Unavailable Ranney, Christopher Primary Care Unavailable Ranney, Christopher Referring Unavailable Ranney, Christopher Primary Care Unavailable Dangelo Botello Attending Unavailable Ranney, Christopher Referring Unavailable Ranney, Christopher Primary Care Unavailable Kassy Saha Attending Unavailable Ranney, Christopher Attending Unavailable Ranney, Christopher Referring Unavailable Ranney, Christopher Primary Care Unavailable [place] [place] [facility] Primary [facility] Unavailable Isidra Chiu Attending Unavailable Isidra Chiu Referring Unavailable Ranney, Christopher Referring Unavailable Ranney, Christopher Attending Unavailable [place] [place] [facility] Primary Care Unavailable Ranney, Christopher Primary Care Unavailable Khoa KUMARI, Gini Attending Unavailable Gini Couch NP Referring Unavailable Khoa KUMARI, Gini Attending Unavailable Ranney, Christopher Primary Care Unavailable Gini Couch NP Referring Unavailable Ranney, Christopher Primary Care Unavailable PraDangelo li Referring Unavailable PrahDangelo Attending Unavailable [place], [place] Primary Care Unavailable Kassy Saha Attending Unavailable Kassy Saha Referring Unavailable [place] [place] [facility] Primary [facility] Unavailable Veronica [place] Referring Unavailable Marquise Padilla Attending Unavailable Rahul Chavez Consulting Unavailable Rahul Chavez Admitting Unavailable Marquise Padilla Consulting Unavailable Ranney, Christopher Referring Unavailable Ranney, Christopher Primary Care Unavailable Primo Jackson Attending Unavail able Ranney, Christopher Primary Care Unavailable hKoa PROCESS LINE OPERATOR, Gini Attending Unavailable Ranney, Christopher Primary Care Unavailable Khoa KUMARI, Gini Attending Unavailable Ranney, Christopher Referring Unavailable Ranney, Christopher Primary Care Unavailable Khoa KUMARI, Gini Attending Unavailable Ranney, Christopher Primary Care Unavailable Praguillermo Dangelo Referring Unavailable PraDangelo li Attending Unavailable Ranney, Christopher Referring Unavailable Ranney, Christopher Primary Care Unavailable Khoa KUMARI, Gini Attending Unavailable Ranney, Christopher Primary Care Unavailable Moises Gaona Attending Unavailable Ranney, Christopher Referring Unavailable Daksha Turner Primary Care Unavailable Gini Couch NP Attending Unavailable Daksha Turner Referring Unavailable Daksha Turner Primary Care Unavailable Gini Couch NP Attending Unavailable Daksha Turner Primary Care Unavailable Moises Gaona Attending Unavailable Gini Couch NP Referring Unavailable Khoa KUMARI, Gini Consulting Unavailable Rahul Chavez Attending Unavailable Daksha Turner Referring Unavailable Daksha Turner Attending Unavailable [place] [facility] Primary [facility] Unavailable Allergies Allergy Classification Reported Allergen(s) Allergy Type Date of Onset Reaction(s) Facility (20 sources) Aspirin; Translations: [Aspirin TABS] Drug Allergy 5 Hives, Intolerance [facility] (20 sources) Lisinopril; Translations: [Lisinopril TABS] Drug Allergy 3 Angioedema [facility] (20 sources) Penicillins; Translations: [Penicillins] Allergy to substance 4 Intolerance [facility] (20 sources) Shellfish; Translations: [shellfish derived] Allergy to substance 0 Anaphylaxis [facility] (20 sources) Shellfish; Translations: [SHELLFISH CONTAINING PRODUCTS] Drug Allergy 0 Anaphylaxis, [facility] (20 sources) cultivated mushroom extract; Translations: [MUSHROOM] Drug Allergy 2 [facility] (3 sources) Aluminum aspirin Drug Allergy 9 [facility] (3 sources) Shellfish-deriv ed Products; Translations: [Shellfish-deri angy Products] Allergy to drug (finding) [facility] [facility] DO Work Phone: (1 source) Mushroom (edible) Unknown [facility] (1 source) Penicillin Drug Allergy Unknown [facility] (1 source) Shellfish Unknown [facility] (20 sources) guaiFENesin Drug Allergy 3 Bleeding [facility] (1 source) Aspirin Drug Allergy 5 [facility] (1 source) guaiFENesin Drug Allergy 5 [facility] (1 source) Lisinopril Drug Allergy 5 [facility] (1 source) Mushroom (edible) Drug allergy (disorder) 5 [facility] Medications Current Medications Medication Drug Class(es) Dates Sig (Normalized) Sig (Original) acetaminophen 500 mg oral tablet (20 sources) Start: 07-15-2021 take 2 tablets by mouth every six hours as needed acetaminophen (TYLENOL EXTRA STRENGTH) 500 mg tablet Take 2 tablets by mouth every 6 hours as needed for pain. 100 tablet 07/15/2021 Active Comment on above: Take 2 tablets by [facility] every 6 hours as needed for [...] once daily. apixaban 5 mg oral tablet (10 sources) Factor Xa Inhibitor Start: 08-14-2024 take 1 tablet by mouth twice daily Apixaban (Eliquis) 5 mg tablet Active 5 mg PO TWICE A DAY 60 August 14, 2024 12:00am blood thinner bumetanide 2 mg oral tablet (20 sources) Loop Diuretic Start: 10-02-2024 take 1 tablet by mouth once Bumetanide 2 mg tablet Active 2 mg PO ONCE October 02, 2024 3:00pm water pill On Hold: Resume on 10/23/24. Start: 04-16-2022 End: 10-02-2024 take 1 tablet by mouth twice daily Bumetanide 2 mg tablet Discontinued 2 mg PO TWICE A DAY 180 September 28, 2022 3:39pm September 29, 2022 2:10pm cabozantinib 20 mg oral tablet (20 sources) Kinase Inhibitor Start: 08-09-2024 take 1 tablet by mouth once daily Cabozantinib 20 mg tablet Active 20 mg PO daily August 09, 2024 12:00am cancer Start: 11-28-2021 End: 05-04-2024 take 1 tablet [...] 30 tablet 11 11/19/2021 Active Start: 11-19-2021 End: 10-21-2021 take 1 tablet by mouth once daily cabozantinib (CABOMETYX) 20 mg tablet Take 1 tablet (20 mg) by mouth once daily. 30 tablet 11/19/2021 10/21/2021 Discontinued Start: 11-19-2021 take 1 tablet by kellie once daily cabozantinib (CABOMETYX) 20 mg tablet Take 1 tablet (20 mg) by mouth once daily. 30 tablet 11 11/19/2021 Active Start: 11-19-2021 End: 10-21-2021 take [...] by mouth once daily. once daily. calcitriol 0.89601 mg oral capsule (5 sources) Vitamin D3 Analog Start: 10-02-2024 take 1 capsule by mouth once daily Calcitriol 0.25 mcg capsule Active 0.25 ug PO daily October 02, 2024 12:00am supplement carvedilol 12.5 mg oral tablet (20 sources) alpha-Adrenergic Bettye, beta-Adrenergic Bettye Start: 06-03-2023 End: 06-04-2024 take 1 tablet by mouth twice daily Carvedilol 12.5 mg tablet Active 12.5 mg PO TWICE A DAY 180 June 04, 2024 8:09am blood pressure Start: 06-27-2022 End: 06-03-2023 Carvedilol 12.5 mg tablet Discontinued 18.75 mg PO TWICE A DAY 90 June 29, 2022 11:13am September 29, 2022 1:49pm Start: 06-27-2022 End: 09-29-2022 take 18.75 mg by mouth twice daily Carvedilol Discontinued 18.75 MG PO TWICE A DAY June 29, 2022 11:13am September 29, 2022 [...] mg dose. Take 3 tablets by mo [facility] twice daily. once daily. cetirizine hydrochloride 5 mg oral tablet (19 sources) Histamine-1 Receptor Antagonist Start: 12-14-19 End: 07-16-19 take 2 tablets by mouth once daily cetirizine (ZYRTEC) 5 MG tablet Take 2 Tabs by mouth daily 60 Tab 0 12/14/2011 Active Comment on above: Take 10 mg by mouth. dapagliflozin 5 mg oral tablet (5 sources) Sodium-Glucose Cotransporter 2 Inhibitor Start: 10-03-19 take 1 tablet by mouth once daily Dapagliflozin Propanediol (Farxiga) 5 mg tablet Active 5 mg PO daily October 02, 2024 12:00am CKD enteric contrast (will be provided with radiology [...] sources) Anticholinergic, Corticosteroid, beta2-Adrenergic Agonist Start: 06-29-2022 Nkvvfyviahg-Nwnhdedjn-E ilanter (Trelegy Ellipta) 100-62.5-25 mcg blister with device Active 1 NMA INHALATION DAILY June 29, 2022 11:13am breathing Start: 06-29-2022 Fluticasone-Um eclidin-Vilanter (Trelegy Ellipta) 100-62.5-25 [...] 29, 2022 11:13am Start: 05-22-2022 End: 06-29-2022 Xjfthiadphi-Rekqpcnhd-Fiasul er (Trelegy Ellipta) 100-62.5-25 mcg blister with device Discontinued 1 NMA INHALATION DAILY May 22, 2022 12:00am June 29, 2022 11:14am Start: 05-22-2022 End: 06-29-2022 Otdwpikuqmb-Vgchjdnvw-Jttbkl er (Trelegy Ellipta) 100-62.5-25 mcg blister with device Discontinued 1 INH INHALATION DAILY May 21, 2022 11:00pm June 29, 2022 10:14am Start: 05-22-2022 End: 06-29-2022 Ycylgnjtrxi-Hqcdavlsj-Erdfyb er (Trelegy Ellipta) 100-62.5-25 mcg blister with [...] mcg inhalation powder 10/31/2021 Active Handicap Placard (5 sources) Start: 10-02-[address] Active [...] Ordered: 27-Jan-2022 Liliam Morejon Generic Substitution Allowed loperamide hydrochloride 2 mg oral capsule (2 sources) Opioid Agonist Start: 10-19-2024 take 1 capsule by mouth four times daily as needed for diarrhea Loperamide 2 mg capsule Active 2 mg PO 4 TIMES DAILY NEEDED as needed for diarrhea October 19, 2024 12:00am methocarbamol 500 mg oral tablet (1 source) Muscle Relaxant Start: 06-04-2019 take 500 mg by mouth four times daily Methocarbamol Active 500 MG PO 4 TIMES DAILY June 04, 2019 5:47pm mirtazapine 15 mg oral tablet (2 sources) Start: 10-19-2024 take 1 tablet by mouth at bedtime Mirtazapine 15 mg tablet Active 15 mg PO AT BEDTIME October 19, 2024 12:00am antidepressant MULTIVITAMIN TAB (20 sources) Start: 09-03-2021 End: [...] 10 mL injection (DEFINITY) polyethylene glycol 3350 97199 mg powder for oral solution (16 sources) [...] Start: 02-06-2022 End: 04-09-2022 polyethylene glycol 3350 (MD RALAX, GLYCOLAX) 17 gram/dose powder Comment on above: Dilute this medicati on with liquid before administration.It is very important that you take or use this exactly as directed. Do not skip doses or discontinue unless directed by your doctor. polyethylene glycol 3350 815406 mg / potassium chloride 2970 mg / sodium bicarbonate 6740 mg / sodium chloride 5860 mg / sodium sulfate 08168 mg powder for oral solution (1 source) Osmotic Laxative Start: 10-30-2024 Peg 3350-Electrolytes (Golytely) 236-22.74-6.74 -5.86 gram recon soln Active 240 mL PO Q10M 4000 0 October 30, 2024 12:00am take as directed for split dose bowel prep Semaglutide (11 sources) Start: 06-20-2024 Semaglutide (Ozempic) 0.25 mg or 0.5 mg (2 mg/3 mL) pen injector Active 0.25 mg SC EVERY WEEK June 20, 2024 12:00am diabetes Start: 06-20-2024 Semaglutide (O zempic) 0.25 mg or 0.5 mg (2 mg/3 mL) pen injector Active 0.25 mg SC EVERY WEEK June 20, 2024 12:00am sertraline 50 mg oral tablet (3 sources) Serotonin Reuptake Inhibitor Start: 10-02-2024 take 1 tablet by mouth once daily Sertraline 50 mg tablet Active 50 mg PO daily October 02, 2024 12:00am 125 ml sodium chloride 9 mg/ml prefilled syringe (18 sources) Start: 07-11-2021 End: 05-18-2023 sodium chloride 0.9 % (flush) 10 mL (BD POSIFLUSH) tiZANidine 4 mg oral capsule (20 sources) Central alpha-2 Adrenergic Agonist Start: 10-02-2024 take 1 capsule by mouth every eight hours as needed Tizanidine 4 mg capsule Active 4 mg PO Q8H as needed for muscle spasticity October 02, 2024 12:00am Start: 10-02-2024 take 1 capsule by mo [facility] twice daily as needed Tizanidine 4 mg [...] Comment on above: [facility] hours as [facility]. torsemide 20 [...] on above: TAKE 2 TABLETS BY MO UTH TO EQUAL 40 MG ONCE PER DAY [...] (Normalized) Sig (Original) Albuterol 90 mcg/actuation Aerosol (13 sources) Start: 12-07-2021 End: 06-29-2022 take 90 [...] tablet by mouth once daily Atenolol * ([id number] MG) 25 MG TABLET Discontinued 25 MG [...] mouth every 12 hours. 60 tablet 03/25/2022 04/09/2022 Discontinued (Changing Therapy/Dosage Form) Start: [...] needed for muscle spasms Cyclobenzaprine HCl * (XKRGEULMFZAUGZP11 MG) 10 MG TABLET Discontinued 10 MG [...] 1 tablet by kellie th once daily as needed (Lower back pain). [...] tablet by mouth once daily Hydrochlorothiazide * ([id number] MG) 25 MG TABLET Discontinued 25 MG [...] Comment on above: Take 1 capsule by [facility] once daily. iv contrast (will be [...] 2019 12:00am December 09, 2021 7:58am nystatin 156565 unt/ml oral suspension (20 sources) Polyene Antifungal Start: 3 End: 5 Nystatin 100,000 unit/mL suspension Discontinued 581112 U PO DAILY 60 0 June 29, 2022 12:00am August 14, 2024 1:19pm administer 1/2 of dose in each side of the mouth Start: 05-20-2022 End: 05-25-2022 Nystatin 100,000 unit/mL gianluca pension Discontinued [id number] U PO DAILY 35 7 0 May [...] Take 1 tablet by kellie once daily. potassium chloride 20 meq extended release oral tablet (20 sources) Start: 05-20-2022 End: 10-21-2024 take 1 tablet by mouth once daily Potassium Chloride 20 mEq tablet extended release Discontinued 20 meq PO DAILY 30 0 June 29, 2022 11:13am October 21, 2024 7:36am Start: 10-30-2019 End: 06-23-2021 take 1 tablet by mouth once daily potassium chloride (K-TAB) 10 mEq tablet Indications: Hypokalemia Take 1 tablet by mouth once daily. 90 tablet 3 10/30/2019 06/23/2021 Discontinued (Course of therapy completed) End: 07-22-2021 potassium chloride (KLOR-CON ) 20 mEq packet Potassium Chloride* ([id number]) 20 MEQ PACKET Active 20 MEQ PO 0 07/22/2021 Discontinued (Clinical Decision) Potassium Chlori de* ([id number]) 20 MEQ PACKET Active 20 MEQ PO Comment on above: Take 1 tablet by kellie th once daily. Potassium Chloride* ([id number]) 20 MEQ PACKET Active 20 MEQ PO predniSONE 20 mg oral tablet (20 sources) Start: 01-20-2022 End: 02-17-2022 predniSONE (DELTASONE) 20 mg tablet Start: 09-26-2021 take 2 tablets by mo uth once daily predniSONE (DELTASONE) 20 mg tablet Take 2 tablets by mouth once daily. 90 tablet 1 09/26/2021 Active Start: 09-11-2021 take 3 tablets by mo [facility] once daily predniSONE (DELTASONE) 20 mg tablet Take 3 tablets by mouth once daily. 90 tablet 1 09/11/2021 Suspended Comment on above: Take 3 tablets by mo [facility] once daily. Take 2 tablets by mo [facility] once daily. rosuvastatin calcium 40 [...] 2:06pm Start: 02-10-2022 take 1 tablet by [facility] once daily spironolactone 25 mg oral tablet ; 1 tab(s) orally once a day Quantity: 0 Refills: 0 Ordered: 10-Feb-2022 Luís Siegel Start: 10-Feb-2022 Generic Substitution Allowed Start: 12-07-2021 take 12.5 mg by mout once daily Spironolactone Active 12.5 MG PO DAILY December 06, 2021 11:00pm Start: 09-27-2021 take 0.5 tablet by [facility] once daily spironolactone (ALDACTONE) 25 mg tablet [...] disease, unspecified] 06-28-2022 Chronic Chronic kidney disease (3 sources) Chronic kidney disease; Translations: [Chronic kidney disease, stage 3b] Onset: 5 Chronic obstructive pulmonary disease and bronchiectasis (20 sources) Acute exacerbation of chronic obstructive airways disease; Translations: [Chronic obstructive pulmonary disease with (acute) exacerbation] Onset: 2 01-28-2022 Chronic Coagulation and hemorrhagic disorders (20 sources) Blood coagulation disorder; Translations: [Hemorrhagic disorder [...] Coronary atherosclerosis; Translations: [Atherosclerotic heart disease of [place] coronary artery without angina pectoris] Onset: 2 [...] hypertension] Onset: 5 Resolved: 9 07-12-2018 Chronic Fluid and electrolyte disorders (1 source) Hypovolemia; Translations: [Hypovolemia] Onset: 5 Episodic Heart valve disorders (20 sources) Non-rheumatic mitral [...] 5 Resolved: 5 02-06-2022 Episodic Other aftercare (2 sources) 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; Translations: [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] Onset: 2 Episodic Other aftercare (1 source) Other skilled nursing (current) drug therapy; Translations: [Other skilled nursing (current) drug therapy] Onset: 2 Episodic Other aftercare (6 sources) Long-term current use of anticoagulant; Translations: [shelter (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 of 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] 10-19-2024 Episodic Other and unspecified benign neoplasm (2 sources) History of polyp of colon; Translations: [History of colonic polyps] 10-30-2024 Episodic Other circulatory disease (15 sources) Low blood pressure; Translations: [Hypotension, unspecified] [...] Chronic Other diseases of kidney and ureters (20 sources) Chronic renal insufficiency; Translations: [Disorder of kidney and ureter, unspecified] 12-15-2022 Episodic Other diseases of kidney and ureters (4 sources) Disorder of kidney and ureter, unspecified; Translations: [Unspecified disorder of kidney and ureter] 12-17-2022 Episodic Other gastrointestinal disorders (1 source) Other constipation; Translations: [Other constipation] Onset: 2 Episodic Other gastrointestinal disorders (8 sources) Diarrhea; Translations: [Diarrhea, unspecified] 10-19-2024 Episodic Other gastrointestinal disorders (2 sources) Diarrhea, unspecified; Translations: [Diarrhea, unspecified] Onset: 5 Episodic Other hematologic conditions (7 sources) High [...] abnormalities] 05-18-2022 Episodic Other lower respiratory disease (20 sources) Hemoptysis; Translations: [Hemoptysis] 12-15-2022 Episodic Other lower respiratory disease (20 sources) Respiratory insufficiency; Translations: [Other abnormalities of [...] excess calories] Onset: 0 10-27-2021 Chronic Other nutritional; endocrine; and metabolic disorders (6 sources) Obese class I; Translations: [Class 1 obesity] 10-19-2024 Chronic Other screening for suspected conditions (not mental disorders or infectious disease) (20 sources) Imaging of thorax abnormal; Translations: [Abnormal [...] Respiratory failure; insufficiency; arrest (adult) (2 sources) Jgqyb-pz-zieyhbo respiratory failure 02-07-2022 Chronic Respiratory failure; insufficiency; arrest (adult) (2 sources) Acute respiratory failure; Translations: [Acute respiratory failure] 02-08-2022 Episodic Respiratory failure; insufficiency; arrest (adult) (2 sources) Respiratory failure; insufficiency; arrest (adult) 02-08-2022 Secondary malignancies (14 sources) Secondary malignant neoplasm of bone; Translations: [...] ERROR Unclassified (2 sources) RIGHT LAPAROSCOPIC NEPHRECTOMY (99283) 02-03-2022 Comment on above: RIGHT LAPAROSCOPIC N EPHRECTOMY (24575) Unclassified (2 sources) Body mass index (BMI) of 35.0 to 35.9 in adult 02-07-2022 Unclassified (1 source) Status post nephrectomy 02-08-2022 Unclassified (2 sources) Chronic atrial fibrillation, unspecified; Translations: [Chronic atrial fibrillation, unspecified] Onset: 2 Unclassified (1 source) Cancer Pain Onset: 2 Unclassified (1 source) Obesity, class 1; Translations: [Obesity, class 1] Onset: 5 Past or Other Problems Problem Classification Problem [...] Test Name Value Interpretation Reference Range Facility Calprotectin, Stoolon [address] 233 ug/g Abnormal 0-120 [facility] Comment on above: Result Comment: Conc entration Interpretation Follow-Up < 5 - 50 ug/g Normal None >50 -120 ug/g Borderline Re-evaluate in 4-6 weeks >120 ug/g Abnormal Repeat as clinically indicated Performed at: [facility] [id number] Siphoner: Sandra Landeros MD, Phone: [phone] Performed By: #### L 100.5299, Z861.1409, F066.8266 #### [facility] [address] [place], [place], [id number] Gastroenterology Visit Repor ton 10-30-2024 Gastroenterology Visit Report [facility] Gastroenterology [address] 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5 mg (3 mL) inhalation PRN PRN 0 06/29/22 10/30/24 Rx (0.083 %) solution for nebulization Shortness Of Breath #75 mL ferrous sulfate 325 mg (65 mg 325 mg PO BID supplement #30 tabs 06/29/22 10/30/24 Rx iron) tablet fluticasone fur. 100 mcg-umeclid 1 inh inhalation DAILY breathing 0 06/29/22 10/30/24 Rx 62.5 mcg-vilant 25 mcg #28 ea inhalat.powder (Trelegy Ellipta) pantoprazole 40 mg tablet,delayed 40 mg PO DAILY gerd #30 tabs 06/0710/30/24 Rx release rosuvastatin 40 mg tablet 40 mg PO DAILY cholesterol #30 tab s 06/29/22 10/30/24 Rx losartan 50 mg tablet 50 mg PO DAILY blood pressure #90 09/29/22 10/30/24 Rx tabs spironolactone 25 mg tablet 25 mg PO DAILY diuretic #90 tabs 0 09/29/22 10/30/24 Rx Held on 10/21/24. Instructions: Resume on 10/23/24. carvedilol 12.5 mg tablet 12.5 mg PO BID blood pressure #180 06/04/24 10/30/24 Rx TABLETS semaglutide 0.25 mg or 0.5 mg (2 0.25 mg subcut QWEEK diabetes 06/0610/30/24 History mg/3 mL) subcutaneous pen injector (Ozempic) cabozantinib 20 mg tablet 20 mg PO QDAY cancer 08/09/2410/07 History apixaban 5 mg tablet (Eliquis) 5 mg PO BID blood thinner #60 tabs 08/14/24 10/30/24 Rx Handicap Placard #1 ea 10/02/24 10/30/24 Rx bumetanide 2 mg tablet 2 mg PO ONCE water pill 10/02/24 0 10/30/24 History Held on 10/21/24. Instructions: Resume on 10/23/24. calcitriol 0.25 mcg capsule 0.25 mcg PO QDAY supplement 10/30/24 History dapagliflozin propanediol 5 mg 5 mg PO QDAY CKD 10/02/24 10/30/24 History tablet (Farxiga) tizanidine 4 mg capsule 4 mg PO Q8H PRN muscle spasticity 10/02/24 10/30/24 History loperamide 2 mg capsule 2 mg PO 4X/DAY PRN PRN diarrhea 10/30/24 History mirtazapine 15 mg tablet 15 mg PO QHS antidepressant 10/30/24 History peg 3350-electrolytes 236 240 ml PO Q10M #4,000 mL 10/30/24 10/30/24 Rx gram-22.74 gram-6.74 gram-5.86 gram solution (Golytely) [facility] Medical History (Updated 10/30/24 @ 15:12 by Kassy Saha, PROCESS LINE OPERATOR-C) Anemia Atrial fibrillation Abnormal chest x-ray Warfarin-induced coagulopathy Chronic a-fib CKD (chronic kidney disease) CKD (chronic kidney [...] Status: Current every day smoker tobacco type: cigarettes Electronic Cigarette Use: with nicotine alcohol intake: current alcohol intake frequency: holidays/special occasions only substance use type: does not use HPI HPI Chief Complaint: diarrhea and bloating Details: ER 10/19/2024 Patient is a 59-year-old male presenting to the emergency department for abdominal pain, nausea and feeling generally unwell for the past week. Patient has a past medical history of metastatic renal cell carcinoma to bone status post nephrectomy, A-fib, hypertension, hyperlipidemia and CHF. Patient states that h (more content not included)... Normal [facility] Absolute lymphocyte countOrd ered By: Marquise Padilla on 10-21-2024 Lymphocytes Auto (Unsp spec) [#/Vol] 1.17 10*3/uL 0.83-4.51 [facility] Absolute neutrophil countOrd ered By: Marquise Padilla on 10-21-2024 Neutrophils (Bld) [#/Vol] 3.3 10*3/uL 2.0-7.7 [facility] Anion gap in Serum or Plasma Ordered By: Marquise Padilla on 10-21-2024 Anion gap [Moles/Vol] 9 mmol/L 5- [facility] Automated lymphocyte count a s percentage of total leukocytesOrdered By: Marquise Padilla on 10-21-2024 Lymphocytes/100 WBC Auto (Unsp spec) 22.5 % - [facility] BUN/creatinine ratioOrdered By: Marquise Padilla on 10-21-2024 Urea nitrogen/Creatinine [Mass ratio] 10.3 mg/mg - [facility] Basic Metabolic Profile (BMP )on 10-21-2024 BUN/CRE 10.3 RATIO Normal - [facility] Comment on above: Performed By: #### L 500.2500, L100.0100 ####[facility] [address] [place], [address] Calcium [Mass/Vol] 8.4 mg/dL Normal 7.6-11.0 [facility] Comment on above: Performed By: #### L 500.2500, L100.0100 ####[facility] [address] [place], [address] Chloride [Moles/Vol] 108 mmol/L Normal 98-108 [facility] Comment on above: Performed By: #### L 500.2500, L100.0100 ####[facility] [address] [place], [address] CO2 [Moles/Vol] 18.2 mmol/L Low 21.0-32.0 [facility] Comment on above: Performed By: #### L 500.2500, L100.0100 ####[facility] [address] [place], [address] Creatinine [Mass/Vol] 1.87 mg/dL High 0.70-1.20 [facility] Comment on above: Performed By: #### L 500.2500, L100.0100 ####[facility] [address] [place], [address] ECRCL 54.49 ml/min Normal 50-250 [facility] Comment on above: Performed By: #### L 500.2500, L100.0100 ####[facility] [address] [place], [address] GAP 9 Normal 5-15 [facility] Comment on above: Performed By: #### L 500.2500, L100.0100 ####[facility] [address] [place], [address] GFR/1.73 sq M.predicted among non-blacks MDRD (S/P/Bld) [Vol rate/Area] 41 mL/min/{1.73_m2} Low >60 [facility] Comment on above: Result Comment: mL/m in/1.73m2 CKD-EPI Creatinine Equation (2020) Performed By: #### L 500.2500, L100.0100 ####[facility] [address] [place], [address] Glucose [Mass/Vol] 106 mg/dL High 70-99 [facility] Comment on above: Performed By: #### L 500.2500, L100.0100 ####[facility] [address] [place], [address] Potassium [Moles/Vol] 4.4 mmol/L Normal 3.3-5.1 [facility] Comment on above: Result Comment: Hemo lysis present, Results??could be affected. ?? Performed By: #### L 500.2500, L100.0100 ####[facility] [address] [place], [address] Sodium [Moles/Vol] 136 mmol/L Normal 133-145 [facility] Comment on above: Performed By: #### L 500.2500, L100.0100 ####[facility] [address] [place], [address] Urea nitrogen [Mass/Vol] 19 mg/dL Normal 4-19 [facility] Comment on above: Performed By: #### L 500.2500, L100.0100 ####[facility] [address] [place], [address] Basophil percentageOrdered B y: Marquise Padilla on 10-21-2024 Basophils/100 WBC (Bld) 0.4 % 0-1 [facility] Bedside Glucoseon 10-21-2024 FINGERSTICK GLU 96 mg/dL Normal 74-106 [facility] Comment on above: Result Comment: ANN MONTERO OF PATIENT CARE PER NURSING PROTOCOL Performed By: #### L 501.080 ####[facility] [address] [place], [address] CBC W/Diff, Automatedon 10-06 Absolute Lymph 1.17 X10 3/uL Normal 0.83-4.51 [facility] Comment on above: Performed By: #### L 500.2500, L100.0100 ####[facility] [address] [place], [address] Absolute Neut 3.3 X10 3/uL Normal 2.0-7.7 [facility] Comment on above: Performed By: #### L 500.2500, L100.0100 ####[facility] [address] [place], [address] Basophils/100 WBC (Bld) 0.4 % Normal 0-1 [facility] Comment on above: Performed By: #### L 500.2500, L100.0100 ####[facility] [address] [place], [address] Eosinophils/100 WBC (Bld) 4.0 % Normal 0-5 [facility] Comment on above: Performed By: #### L 500.2500, L100.0100 ####[facility] [address] [place], [address] Erythrocyte distribution width (RBC) [Ratio] 18.3 % High 11.6-14.6 [facility] Comment on above: Performed By: #### L 500.2500, L100.0100 ####[facility] [address] [place], [address] Hematocrit (Bld) [Volume fraction] 35.2 % Low 40-54 [facility] Comment on above: Performed By: #### L 500.2500, L100.0100 ####[facility] [address] [place], [address] Hemoglobin (Bld) [Mass/Vol] 11.9 g/dL Low 13.0-16.5 [facility] Comment on above: Performed By: #### L 500.2500, L100.0100 ####[facility] [address] [place], [address] IG% 0.400 Normal 0.0-0.9 [facility] Comment on above: Result Comment: IG% - Immature Granulocytes (promyelocytes, myelocytes and metamyelocytes) > 1% indicates that a LEFT SHIFT is Present. Performed By: #### L 500.2500, L100.0100 ####[facility] [address] [place], [address] Lymphocytes/100 WBC (Bld) 22.5 % Normal 19-41 [facility] Comment on above: Performed By: #### L 500.2500, L100.0100 ####[facility] [address] [place], [address] MCH (RBC) [Entitic mass] 32.7 pg High 27.0-32.0 [facility] Comment on above: Performed By: #### L 500.2500, L100.0100 ####[facility] [address] [place], [address] MCHC (RBC) [Mass/Vol] 33.8 g/dL Normal 32-36 [facility] Comment on above: Performed By: #### L 500.2500, L100.0100 ####[facility] [address] [place], [address] MCV (RBC) [Entitic vol] 96.7 fL High 80-94 [facility] Comment on above: Performed By: #### L 500.2500, L100.0100 ####[facility] [address] [place], [address] Monocytes/100 WBC (Bld) 8.9 % Normal 0-10 [facility] Comment on above: Performed By: #### L 500.2500, L100.0100 ####[facility] [address] [place], [address] Neutrophils/100 WBC (Bld) 63.8 % Normal 47-70 [facility] Comment on above: Performed By: #### L 500.2500, L100.0100 ####[facility] [address] [place], [address] Nucleated RBC (Bld) [#/Vol] 0.4 10*3/uL Normal 0-5 [facility] Comment on above: Performed By: #### L 500.2500, L100.0100 ####[facility] [address] [place], [address] Platelet mean volume (Bld) [Entitic vol] 10.2 fL Normal 6.2-12.0 [facility] Comment on above: Performed By: #### L 500.2500, L100.0100 ####[facility] [address] [place], [address] Platelets (Bld) [#/Vol] 156 10*3/uL Normal 150-450 [facility] Comment on above: Performed By: #### L 500.2500, L100.0100 ####[facility] [address] [place], [address] RBC (Bld) [#/Vol] 3.64 10*6/uL Low 4.6-6.2 [facility] Comment on above: Performed By: #### L 500.2500, L100.0100 ####[facility] [address] [place], [address] RDW SD 64.2 fl High 35.1-43.9 [facility] Comment on above: Performed By: #### L 500.2500, L100.0100 ####[facility] [address] [place], [address] WBC (Bld) [#/Vol] 5.2 10*3/uL Normal 4.4-11.0 [facility] Comment on above: Performed By: #### L 500.2500, L100.0100 ####[facility] [address] [place], [address] Carbon dioxide, total [Moles /volume] in Central venous bloodOrdered By: Marquise Padilla on 10-21-2024 CO2 [Moles/Vol] 18.2 mmol/L Low 21.0-32.0 [facility] Chloride assayOrdered By: Geovanna Padilal on 10-21-2024 Chloride [Moles/Vol] 108 mmol/L 98-108 [facility] Discharge Instructionon 10-06 Discharge Instruction [facility] Medical Records Department [address] [place] [address] Instructions for Home/Discharge Instructions 10/21/24 0734 MR#: [id number] Acct: [id number] Name: YEFRI YANEZ Rep #: [id number] : 1965 59 From: Marquise Padilla MD PCP: Dr. Daksha Turner MD Status:ADM IN Discharge Instructions DC O2, CPAP, BIPAP needs Home O2 Discharge instructions: No Dressing / Incision Discharge Activity: Return to Normal Activity Dressing / Incision Call your doctor if you observe: Fever of 101 or Higher, Shortness of breath, Dizziness, Fainting spells, Swelling in the ankles, Chest pain and Increased palpitations (irregular heartbeat) Follow Up Care Test Results: Test results from this visit will be discussed in further detail at your follow-up appointment, if applicable. Discharge Plan Admission Admit Date/Time: 10/19/24 04:52 Attending Provider: Marquise Padilla Primary Care Provider: Daksha Turner Consulting Providers: Rahul Chavez Discharge Orders/Prescriptions Prescriptions: Continued losartan 50 mg tablet 50 mg PO DAILY Qty: 90 3RF Ozempic 0.25 mg or 0.5 mg (2 mg/3 mL) pen injector 0.25 mg subcut QWEEK Eliquis 5 mg tablet 5 mg PO BID Qty: 60 11RF dapagliflozin propanediol [Farxiga] 5 mg tablet 5 mg PO QDAY calcitriol 0.25 mcg capsule 0.25 mcg PO QDAY tizanidine 4 mg capsule 4 mg PO Q8H PRN (Reason: muscle spasticity) bumetanide 2 mg tablet 2 mg PO ONCE (DME) Handicap Placard See Rx Instructions .Route .MEDSUPPLY Qty: 1 0RF Rx Instructions: Exp: 10/13/2028 pantoprazole 40 mg tablet,delayed release (DR/EC) 40 mg PO DAILY Qty: 30 0RF ferrous sulfate 325 mg (65 mg iron) Tablet 325 mg PO BID Qty: 30 0RF rosuvastatin 40 mg Tablet 40 mg PO DAILY Qty: 30 0RF Trelegy Ellipta 100-62.5-25 mcg blister with device 1 inh inhalation DAILY Qty: 28 0RF loperamide 2 mg capsule 2 mg PO 4X/DAY PRN PRN (Reason: diarrhea) mirtazapine 15 mg tablet 15 mg PO QHS carvedilol 12.5 mg tablet 12.5 mg PO BID Qty: 180 3RF cabozantinib 20 mg tablet 20 mg PO QDAY Held spironolactone 25 mg tablet 25 mg PO DAILY Qty: 90 3RF Hold Instructions: Resume on 10/23/24. albuterol sulfate 2.5 mg /3 mL (0.083 %) solution for nebulization 2.5 mg inhalation PRN PRN (Reason: Shortness Of Breath) Qty: 75 0RF Hold Instructions: Resume on 10/23/24. Discontinued potassium chloride 20 mEq tablet extended release 20 meq PO DAILY Qty: 30 0RF Referrals / Follow Up: Daksha Turner MD [Primary Care Provider] - Within 1 Week Friend,DO Sachin [Med Staff - Active Staff] - Within 1 Month Disposition Disposition (needs filled in before D/C Order can be placed): Home, Self Care 10/21/24 0738 Marquise Padilla MD CC: Dr. Daksha Turner MD; Dr. Rahul Chavez DO Signed Normal [facility] Eosinophil percentageOrdered By: Marquise Padilla on 10-21-2024 Eosinophils/100 WBC (Bld) 4.0 % 0-5 [facility] Erythrocyte distribution wid th ratioOrdered By: Marquise Padilla on 10-21-2024 Erythrocyte distribution width (RBC) [Ratio] 18.3 % High 11.6-14.6 [facility] Erythrocyte distribution wid th standard deviationOrdered By: Marquise Padilla on 10-21-2024 Erythrocyte distribution width (RBC) [Ratio] 64.2 fl High 35.1-43.9 [facility] Glomerular filtration rate ( GFR) estimation/1.73 sq m using serum, plasma, or whole bOrdered By: Marquise Padilla on 10-21-2024 GFR/1.73 sq M.predicted among non-blacks MDRD (S/P/Bld) [Vol rate/Area] 41 mL/min/{1.73_m2} Low >60 [facility] Comment on above: mL/min/1.73m2 CKD-EP I Creatinine Equation (2020) Glucose measurement at bedsi deOrdered By: Marquise Padilla on 10-21-2024 Glucose [Mass/Vol] 96 mg/dL 74-106 [facility] Comment on above: MANAGEMENT OF PATIEN T CARE PER NURSING PROTOCOL Hematocrit Auto (Bld) [Volum e fraction]Ordered By: Marquise Padilla on 10-21-2024 Hematocrit (Bld) [Volume fraction] 35.2 % Low 40-54 [facility] Hemoglobin measurementOrdere d By: Marquise Padilla on 10-21-2024 Hemoglobin (Bld) [Mass/Vol] 11.9 g/dL Low 13.0-16.5 [facility] Immature granulocytes/100 WB C Auto (Bld)Ordered By: Marquise Padilla on 10-21-2024 Immature granulocytes/100 WBC (Bld) 0.400 % 0.0-0.9 [facility] Comment on above: IG% - Immature Granu locytes (promyelocytes, myelocytes and metamyelocytes) > 1% indicates that a LEFT SHIFT is Present. MCV (mean corpuscular volume ) determinationOrdered By: Marquise Padilla on 10-21-2024 MCV (RBC) [Entitic vol] 96.7 fL High 80-94 [facility] Mean corpuscular hemoglobin (MCH) determinationOrdered By: Marquise Padilla on 10-21-2024 MCH (RBC) [Entitic mass] 32.7 pg High 27.0-32.0 [facility] Mean corpuscular hemoglobin concentration (MCHC) determinationOrdered By: Marquise Padilla on 10-21-2024 MCHC (RBC) [Mass/Vol] 33.8 g/dL 32-36 [facility] Mean platelet volume determi nationOrdered By: Marquise Padilla on 10-21-2024 Platelet mean volume (Bld) [Entitic vol] 10.2 fL 6.2-12.0 [facility] Monocyte percentageOrdered B y: Marquise Padilla on 10-21-2024 Monocytes/100 WBC (Bld) 8.9 % 0-10 [facility] Neutrophil percentageOrdered By: Marquise Padilla on 10-21-2024 Neutrophils/100 WBC (Bld) 63.8 % 47-70 [facility] Nucleated red blood cell per centageOrdered By: Marquise Padilla on 10-21-2024 Nucleated RBC/100 WBC (Bld) [Ratio] 0.4 % 0-5 [facility] Platelet countOrdered By: Geovanna Padilla on 10-21-2024 Platelets (Bld) [#/Vol] 156 10*3/uL 150-450 [facility] Potassium measurement (mass/ volume)Ordered By: Marquise Padilla on 10-21-2024 Potassium (Unsp spec) [Mass/Vol] 4.4 mmol/L 3.3-5.1 [facility] Comment on above: Hemolysis present, R esults could be affected. RBC Auto (Bld) [#/Vol]Ordere d By: Marquise Padilla on 10-21-2024 RBC (Bld) [#/Vol] 3.64 10*6/uL Low 4.6-6.2 [facility] Serum creatinine measurement (mass/volume)Ordered By: Marquise Padilla on 10-21-2024 Creatinine [Mass/Vol] 1.87 mg/dL High 0.70-1.20 [facility] Serum glucose measurement (m ass/volume)Ordered By: Marquise Padilla on 10-21-2024 Glucose [Mass/Vol] 106 mg/dL High 70-99 [facility] Serum or plasma calcium cory urement (mass/volume)Ordered By: Marquise Padilla on 10-21-2024 Calcium [Mass/Vol] 8.4 mg/dL 7.6-11.0 [facility] Serum or plasma urea nitroge n measurement (mass/volume)Ordered By: Marquise Padilla on 10-21-2024 Urea nitrogen [Mass/Vol] 19 mg/dL 4-19 [facility] Sodium levelOrdered By: Omero Padilla on 10-21-2024 Sodium [Moles/Vol] 136 mmol/L 133-145 [facility] White blood cell (WBC) count Ordered By: Marquise Padilla on 10-21-2024 WBC (Bld) [#/Vol] 5.2 10*3/uL 4.4-11.0 [facility] Basic Metabolic Profile (BMP )on 10-20-2024 BUN/CRE 11.3 RATIO Normal 10-20 [facility] Comment on above: Performed By: #### L 400.0001 #### [facility] [address] [place], [address] Calcium [Mass/Vol] 8.3 mg/dL Normal 7.6-11.0 [facility] Comment on above: Performed By: #### L 400.0001 #### [facility] [address] [place], [address] Chloride [Moles/Vol] 108 mmol/L Normal 98-108 [facility] Comment on above: Performed By: #### L 400.0001 #### [facility] [address] [place], [address] CO2 [Moles/Vol] 21.0 mmol/L Normal 21.0-32.0 [facility] Comment on above: Performed By: #### L 400.0001 #### [facility] [address] [place], [address] Creatinine [Mass/Vol] 2.12 mg/dL High 0.70-1.20 [facility] Comment on above: Performed By: #### L 400.0001 #### [facility] [address] [place], [address] ECRCL 47.73 ml/min Low 50-250 [facility] Comment on above: Performed By: #### L 400.0001 #### [facility] [address] [place], [address] GAP 8 Normal 5-15 [facility] Comment on above: Performed By: #### L 400.0001 #### [facility] [address] [place], [address] GFR/1.73 sq M.predicted among non-blacks MDRD (S/P/Bld) [Vol rate/Area] 35 mL/min/{1.73_m2} Low >60 [facility] Comment on above: Result Comment: mL/m in/1.73m2 CKD-EPI Creatinine Equation (2020) Performed By: #### L 400.0001 #### [facility] [address] [place], [address] Glucose [Mass/Vol] 76 mg/dL Normal 70-99 [facility] Comment on above: Performed By: #### L 400.0001 #### [facility] [address] [place], [address] Potassium [Moles/Vol] 4.5 mmol/L Normal 3.3-5.1 [facility] Comment on above: Result Comment: Hemo lysis present, Results??could be affected. ?? Performed By: #### L 400.0001 #### [facility] [address] [place], [address] Sodium [Moles/Vol] 137 mmol/L Normal 133-145 [facility] Comment on above: Performed By: #### L 400.0001 #### [facility] [address] [place], [address] Urea nitrogen [Mass/Vol] 24 mg/dL High 4-19 [facility] Comment on above: Performed By: #### L 400.0001 #### [facility] [address] [place], [address] Bedside Glucoseon 10-20-2024 FINGERSTICK GLU 81 mg/dL Normal 74-106 [facility] Comment on above: Result Comment: ANN GEMENT OF PATIENT CARE PER NURSING PROTOCOL Performed By: #### L 100.0100, L504.2610, L500.4050 #### [facility] [address] [place], [address] FINGERSTICK GLU 101 mg/dL Normal 74-106 [facility] Comment on above: Result Comment: ANN GEMENT OF PATIENT CARE PER NURSING PROTOCOL Performed By: #### L 100.0100, L504.2610, L500.4050 #### [facility] [address] [place], [address] FINGERSTICK GLU 81 mg/dL Normal 74-106 [facility] Comment on above: Result Comment: ANN GEMENT OF PATIENT CARE PER NURSING PROTOCOL Performed By: #### L 400.0001 #### [facility] [address] [place], [address] FINGERSTICK GLU 95 mg/dL Normal 74-106 [facility] Comment on above: Result Comment: ANN GEMENT OF PATIENT CARE PER NURSING PROTOCOL Performed By: #### L 100.0100, L504.2610, L500.4050 #### [facility] [address] [place], [address] CBC W/Diff, Automatedon 08- 5-2024 Absolute Lymph 0.96 X10 3/uL Normal 0.83-4.51 [facility] Comment on above: Performed By: #### L 400.0001 #### [facility] [address] [place], [address] Absolute Neut 2.8 X10 3/uL Normal 2.0-7.7 [facility] Comment on above: Performed By: #### L 400.0001 #### [facility] [address] [place], [address] Basophils/100 WBC (Bld) 0.2 % Normal 0-1 [facility] Comment on above: Performed By: #### L 400.0001 #### [facility] [address] [place], [address] Eosinophils/100 WBC (Bld) 3.6 % Normal 0-5 [facility] Comment on above: Performed By: #### L 400.0001 #### [facility] [address] [place], [address] Erythrocyte distribution width (RBC) [Ratio] 18.2 % High 11.6-14.6 [facility] Comment on above: Performed By: #### L 400.0001 #### [facility] [address] [place], [address] Hematocrit (Bld) [Volume fraction] 36.6 % Low 40-54 [facility] Comment on above: Performed By: #### L 400.0001 #### [facility] [address] [place], [address] Hemoglobin (Bld) [Mass/Vol] 12.9 g/dL Low 13.0-16.5 [facility] Comment on above: Performed By: #### L 400.0001 #### [facility] [address] [place], [address] IG% 0.200 Normal 0.0-0.9 [facility] Comment on above: Result Comment: IG% - Immature Granulocytes (promyelocytes, myelocytes and metamyelocytes) > 1% indicates that a LEFT SHIFT is Present. Performed By: #### L 400.0001 #### [facility] [address] [place], [address] Lymphocytes/100 WBC (Bld) 21.9 % Normal 19-41 [facility] Comment on above: Performed By: #### L 400.0001 #### [facility] [address] [place], [address] MCH (RBC) [Entitic mass] 34.1 pg High 27.0-32.0 [facility] Comment on above: Performed By: #### L 400.0001 #### [facility] [address] [place], [address] MCHC (RBC) [Mass/Vol] 35.2 g/dL Normal 32-36 [facility] Comment on above: Performed By: #### L 400.0001 #### [facility] [address] [place], [address] MCV (RBC) [Entitic vol] 96.8 fL High 80-94 [facility] Comment on above: Performed By: #### L 400.0001 #### [facility] [address] [place], [address] Monocytes/100 WBC (Bld) 10.7 % High 0-10 [facility] Comment on above: Performed By: #### L 400.0001 #### [facility] [address] [place], [address] Neutrophils/100 WBC (Bld) 63.4 % Normal 47-70 [facility] Comment on above: Performed By: #### L 400.0001 #### [facility] [address] [place], [address] Nucleated RBC (Bld) [#/Vol] 0 10*3/uL Normal 0-5 [facility] Comment on above: Performed By: #### L 400.0001 #### [facility] [address] [place], [address] Platelet mean volume (Bld) [Entitic vol] 11.0 fL Normal 6.2-12.0 [facility] Comment on above: Performed By: #### L 400.0001 #### [facility] [address] [place], [address] Platelets (Bld) [#/Vol] 165 10*3/uL Normal 150-450 [facility] Comment on above: Performed By: #### L 400.0001 #### [facility] [address] [place], [address] RBC (Bld) [#/Vol] 3.78 10*6/uL Low 4.6-6.2 [facility] Comment on above: Performed By: #### L 400.0001 #### [facility] [address] [place], [address] RDW SD 64.3 fl High 35.1-43.9 [facility] Comment on above: Performed By: #### L 400.0001 #### [facility] [address] [place], [address] WBC (Bld) [#/Vol] 4.4 10*3/uL Normal 4.4-11.0 [facility] Comment on above: Performed By: #### L 400.0001 #### [facility] [address] [place], [address] Magnesiumon 10-20-2024 Magnesium [Mass/Vol] 2.0 mg/dL Normal 1.5-2.2 [facility] Comment on above: Performed By: #### L 100.0100, L504.2610, L500.4050 #### [facility] [address] [place], [address] Magnesium measurement (mass/ volume)Ordered By: Rahul Verduzco on 10-20-2024 Magnesium (Unsp spec) [Mass/Vol] 2.0 mg/dL 1.5-2.2 [facility] Bedside Glucoseon 10-19-2024 FINGERSTICK GLU 86 mg/dL Normal 74-106 [facility] Comment on above: Result Comment: ANN GEMENT OF PATIENT CARE PER NURSING PROTOCOL Performed By: #### L 100.0100, L504.2610, L500.4050 #### [facility] [address] [place], [address] FINGERSTICK GLU 78 mg/dL Normal 74-106 [facility] Comment on above: Result Comment: ANN GEMENT OF PATIENT CARE PER NURSING PROTOCOL Performed By: #### L 100.0100, L504.2610, L500.4050 #### [facility] [address] [place], [address] FINGERSTICK GLU 100 mg/dL Normal 74-106 [facility] Comment on above: Result Comment: ANN GEMENT OF PATIENT CARE PER NURSING PROTOCOL Performed By: #### L 100.0100, L504.2610, L500.4050 #### [facility] [address] [place], [address] FINGERSTICK GLU 79 mg/dL Normal 74-106 [facility] Comment on above: Result Comment: ANN MONTERO OF PATIENT CARE PER NURSING PROTOCOL Performed By: #### L 501.080 #### [facility] [address] [place], [address] Bilirubin Test strip Ql (U)O rdered By: Rahul Verduzco on 10-19-2024 Bilirubin Ql (U) Negative Negative [facility] Bilirubin, totalOrdered By: Rahul Verduzco on 10-19-2024 Bilirubin [Mass/Vol] 0.58 mg/dL 0.00-1.30 [facility] Blood manual differential co mment interpretation (narrative result)Ordered By: Rahul Verduzco on 10-19-2024 Manual differential comment Piyush (Bld) [Interp] See comment [facility] Comment on above: ANISOCYTOSIS 1+ CBC W/Diff, Automatedon 10-06 Absolute Lymph 0.73 X10 3/uL Low 0.83-4.51 [facility] Comment on above: Performed By: #### L 100.0100, L504.2610, L500.4050 #### [facility] [address] [place], [address] Absolute Neut 3.1 X10 3/uL Normal 2.0-7.7 [facility] Comment on above: Performed By: #### L 100.0100, L504.2610, L500.4050 #### [facility] [address] [place], [address] Basophils/100 WBC (Bld) 0.5 % Normal 0-1 [facility] Comment on above: Performed By: #### L 100.0100, L504.2610, L500.4050 #### [facility] [address] [place], [address] Eosinophils/100 WBC (Bld) 2.3 % Normal 0-5 [facility] Comment on above: Performed By: #### L 100.0100, L504.2610, L500.4050 #### [facility] [address] [place], [address] Erythrocyte distribution width (RBC) [Ratio] 18.3 % High 11.6-14.6 [facility] Comment on above: Performed By: #### L 100.0100, L504.2610, L500.4050 #### [facility] [address] [place], [address] Hematocrit (Bld) [Volume fraction] 43.5 % Normal 40-54 [facility] Comment on above: Performed By: #### L 100.0100, L504.2610, L500.4050 #### [facility] [address] [place], [address] Hemoglobin (Bld) [Mass/Vol] 14.7 g/dL Normal 13.0-16.5 [facility] Comment on above: Performed By: #### L 100.0100, L504.2610, L500.4050 #### [facility] [address] [place], [address] IG% 0.200 Normal 0.0-0.9 [facility] Comment on above: Result Comment: IG% - Immature Granulocytes (promyelocytes, myelocytes and metamyelocytes) > 1% indicates that a LEFT SHIFT is Present. Performed By: #### L 100.0100, L504.2610, L500.4050 #### [facility] [address] [place], [address] Lymphocytes/100 WBC (Bld) 16.8 % Low 19-41 [facility] Comment on above: Performed By: #### L 100.0100, L504.2610, L500.4050 #### [facility] [address] [place], [address] MCH (RBC) [Entitic mass] 33.0 pg High 27.0-32.0 [facility] Comment on above: Performed By: #### L 100.0100, L504.2610, L500.4050 #### [facility] [address] [place], [address] MCHC (RBC) [Mass/Vol] 33.8 g/dL Normal 32-36 [facility] Comment on above: Performed By: #### L 100.0100, L504.2610, L500.4050 #### [facility] [address] [place], [address] MCV (RBC) [Entitic vol] 97.5 fL High 80-94 [facility] Comment on above: Performed By: #### L 100.0100, L504.2610, L500.4050 #### [facility] [address] [place], [address] Monocytes/100 WBC (Bld) 8.5 % Normal 0-10 [facility] Comment on above: Performed By: #### L 100.0100, L504.2610, L500.4050 #### [facility] [address] [place], [address] Neutrophils/100 WBC (Bld) 71.7 % High 47-70 [facility] Comment on above: Performed By: #### L 100.0100, L504.2610, L500.4050 #### [facility] [address] [place], [address] Nucleated RBC (Bld) [#/Vol] 0 10*3/uL Normal 0-5 [facility] Comment on above: Performed By: #### L 100.0100, L504.2610, L500.4050 #### [facility] [address] [place], [address] Platelet mean volume (Bld) [Entitic vol] 10.7 fL Normal 6.2-12.0 [facility] Comment on above: Performed By: #### L 100.0100, L504.2610, L500.4050 #### [facility] [address] [place], [address] Platelets (Bld) [#/Vol] 183 10*3/uL Normal 150-450 [facility] Comment on above: Performed By: #### L 100.0100, L504.2610, L500.4050 #### [facility] [address] [place], [address] RBC (Bld) [#/Vol] 4.46 10*6/uL Low 4.6-6.2 [facility] Comment on above: Performed By: #### L 100.0100, L504.2610, L500.4050 #### [facility] [address] [place], [address] RDW SD 65.1 fl High 35.1-43.9 [facility] Comment on above: Performed By: #### L 100.0100, L504.2610, L500.4050 #### [facility] [address] [place], [address] WBC (Bld) [#/Vol] 4.3 10*3/uL Low 4.4-11.0 [facility] Comment on above: Performed By: #### L 100.0100, L504.2610, L500.4050 #### [facility] [address] [place], [address] Calculated very low density lipoprotein (VLDL) cholesterol measurementOrdered By: Rahul Verduzco on 10-19-2024 Calculated very low density lipoprotein (VLDL) cholesterol measurement 20 mg/dL 5-40 [facility] Comprehensive Metabolic Prof ilon 10-19-2024 Albumin [Mass/Vol] 3.9 g/dL Normal 3.4-4.8 [facility] Comment on above: Performed By: #### L 400.0001 #### [facility] [address] [place], [address] Albumin/Globulin [Mass ratio] 1.3 {ratio} Normal 0.9-2.4 [facility] Comment on above: Performed By: #### L 400.0001 #### [facility] [address] [place], [address] ALK PHOS 51 U/L Normal 40-129 [facility] Comment on above: Performed By: #### L 400.0001 #### [facility] [address] [place], [address] ALT [Catalytic activity/Vol] 45 U/L Normal <=46 [facility] Comment on above: Performed By: #### L 400.0001 #### [facility] [address] [place], [address] AST [Catalytic activity/Vol] 47 U/L High <=37 [facility] Comment on above: Performed By: #### L 400.0001 #### [facility] [address] [place], [address] Bilirubin [Mass/Vol] 0.58 mg/dL Normal 0.00-1.30 [facility] Comment on above: Performed By: #### L 400.0001 #### [facility] [address] [place], [address] BUN/CRE 12.7 RATIO Normal 10-20 [facility] Comment on above: Performed By: #### L 400.0001 #### [facility] [address] [place], [address] Calcium [Mass/Vol] 8.8 mg/dL Normal 7.6-11.0 [facility] Comment on above: Performed By: #### L 400.0001 #### [facility] [address] [place], [address] Chloride [Moles/Vol] 105 mmol/L Normal 98-108 [facility] Comment on above: Performed By: #### L 400.0001 #### [facility] [address] [place], [address] CO2 [Moles/Vol] 21.3 mmol/L Normal 21.0-32.0 [facility] Comment on above: Performed By: #### L 400.0001 #### [facility] [address] [place], [address] Creatinine [Mass/Vol] 2.53 mg/dL High 0.70-1.20 [facility] Comment on above: Performed By: #### L 400.0001 #### [facility] [address] [place], [address] ECRCL 40.15 ml/min Low 50-250 [facility] Comment on above: Performed By: #### L 400.0001 #### [facility] [address] [place], [address] GAP 12 Normal 5-15 [facility] Comment on above: Performed By: #### L 400.0001 #### [facility] [address] [place], [address] GFR/1.73 sq M.predicted among non-blacks MDRD (S/P/Bld) [Vol rate/Area] 28 mL/min/{1.73_m2} Low >60 [facility] Comment on above: Result Comment: mL/m in/1.73m2 CKD-EPI Creatinine Equation (2020) Performed By: #### L 400.0001 #### [facility] [address] [place], [address] Globulin (S) [Mass/Vol] 3.0 g/dL Normal 2.2-4.2 [facility] Comment on above: Performed By: #### L 400.0001 #### [facility] [address] [place], [address] Glucose [Mass/Vol] 82 mg/dL Normal 70-99 [facility] Comment on above: Performed By: #### L 400.0001 #### [facility] [address] [place], [address] Potassium [Moles/Vol] 4.7 mmol/L Normal 3.3-5.1 [facility] Comment on above: Performed By: #### L 400.0001 #### [facility] [address] [place], [address] Sodium [Moles/Vol] 138 mmol/L Normal 133-145 [facility] Comment on above: Performed By: #### L 400.0001 #### [facility] [address] [place], [address] T PROT 6.9 g/dL Normal 5.9-8.4 [facility] Comment on above: Performed By: #### L 400.0001 #### [facility] [address] [place], [address] Urea nitrogen [Mass/Vol] 32 mg/dL High 4-19 [facility] Comment on above: Performed By: #### L 400.0001 #### [facility] [address] [place], [address] ENTERIC PATHOGEN PANEL STOOL on 10-19-2024 EP PANEL Normal Reference Ran ge = Not Detected Nucleic acid amplification test method Not detected for Campylobacter group, Salmonella species, Shigella species, Vibrio Group, Yersinia enterocolitica, EHEC (Shiga Toxin 1, Shiga Toxin 2), Norovirus Gl/Gll, and Rotavirus A. Other common stool pathogens are not detected on this panel include: Aeromonas/Plesiomonas or parasites. Order testing for these organisms separately if suspected. This is an amplified DNA test which makes it both specific and sensitive. CAMPYLOBACTER Not Detected Norovirus Not Detected Rotavirus Not Detected Salmonella Not Detected Shiga Toxin Not Detected Shigella sp. Not Detected VIBRIO Not Detected Yersinia Not Detected Normal [facility] Comment on above: Performed By: #### M 100.637 ####[facility] [id number] [place], [address] H AND P Exam - Hospitaliston 10-19-2024 H&P Exam - Hospitalist [facility] Medical Records Department [address] [place] [address] H P Exam - Hospitalist 10/19/24 0418 MR#: [id number] Acct: [id number] Name: YEFRI YANEZ Rep #: [id number] : 1965 59 From: Rahul Chavez DO PCP: Dr. Daksha Turner MD Status:ADM IN Location: [facility] [id number] HPI - General General Date of Admission: 10/19/24 Date of Service: 10/19/24 Chief Complaint: Abdominal Pain and Diarrhea. HPI Narrative YEFRI YANEZ, is a 59 M with a past medical history of essential hypertension; on carvedilol twice daily, losartan, spironolactone and bumetanide, hyperlipidemia; on rosuvastatin, chronic tobacco abuse; with subsequent COPD, chronic hypoxic respiratory failure; on 3L NC continuous, obesity (class II); with BMI of 35.3 this admission, NIMCO; on CPAP, DM-2; of unknown control on dapagliflozin and semaglutide, chronic atrial fibrillation; s/p DCCV (2021) on apixaban twice daily, history of CHF; with preserved LVEF of 50% with mild concentric LVH, borderline global hypokinesis of the left ventricle and [id number] (1-2+) eccentric mitral valve insufficiency, mild (1+) tricuspid valve insufficiency and moderate (2+) eccentric aortic valve insufficiency on recent echocardiogram done here on September 25, 2024, history of metastatic renal cancer to the bone; s/p Right nephrectomy on cabozantinib followed by Dr. Botello of oncology, CKD; stage IIIb-IV, HIRA; on ferrous sulfate twice daily, depression; on sertraline, history of muscle spasms; on tizanidine twice daily as needed, GERD; on pantoprazole, chronic diarrhea (for months) and OA who presents to [facility] ER complaining of abdominal pain and diarrhea. Mr. Yanez reports his symptoms began approximately 1 week prior to admission with an acute worsening of his chronic diarrhea causing him to feel dehydrated. He also admits to generalized cramping abdominal pain in addition to bloating with nausea with the patient feeling like he is becoming dehydrated. He states his last colonoscopy was more than 10 years ago and he is interested to find solutions for his diarrhea because he is going to the bathroom frequently at night. He denies associated fever, chills, vomiting, constipation, blood in stools, recent antibiotics, known sick contacts, significant travel, dysuria, hematuria, headache or rash. In the ER he underwent CT scan of the abdomen and pelvis without contrast that revealed previous Right-sided nephrectomy with multifocal bone Metastatic disease and CXR that revealed Right lateral chest wall mass complicated by acute worsening of chronic Diarrhea and transient Hypotension of 87/45 mmHg noted shortly after admission and he was then admitted to the PCU for ongoing care for stated is expected to extend beyond 2 midnights. [facility] Medical History Atrial fibrillation Abnormal chest x-ray Warfarin-induced coagulopathy Chronic a-fib CKD (chronic kidney disease) CKD (chronic kidney disease), stage III Systolic CHF Tobacco use NIMCO on CPAP Metastatic renal cell carcinoma to bone Renal cell cancer Hyperlipidemia GERD (gastroesophageal reflux disease) COPD (chronic obstructive pulmonary disease) Atrial fibrillation Hypertension Home Medications ???Medication ???Instructions ???Recorded ???Last Taken ???Type albuterol sulfate 2.5 mg/3 mL 2.5 mg (3 mL) inhalation PRN PRN 0 06/29/22 Unknown Rx (0.083 %) solution for nebulization Shortness Of Breath #75 mL ferrous sulfate 325 mg (65 mg 325 mg PO BID #30 tabs 06/29/22 Un known Rx iron) tablet fluticasone fur. 100 mcg-umeclid 1 inh inhalation DAILY #28 ea 06/07 06/28 Unknown Rx 62.5 mcg-vilant 25 mcg inhalat.powder (Trelegy Ellipta) pantoprazole 40 mg tablet,delayed 40 mg PO DAILY gerd #30 tabs 06/07 06/28 Unknown Rx release potassium chloride 20 mEq 20 meq PO DAILY #30 tabs 06/29/22 Unknown Rx tablet,extended release rosuvastatin 40 mg tablet 40 mg PO DAILY cholesterol #30 tab s 06/29/22 Unknown Rx losartan 50 mg tablet 50 mg PO DAILY #90 tabs 09/29/22 U nknown Rx spironolactone 25 mg tablet 25 mg PO DAILY #90 tabs 09/29/22 U nknown Rx carvedilol 12.5 mg tablet 12.5 mg PO BID #180 TABLETS Unknown Rx semaglutide 0.25 mg or 0.5 mg (2 0.25 mg subcut QWEEK 06/20/24 Unkn own History mg/3 mL) subcutaneous pen injector (Ozempic) cabozantinib 20 mg tablet 20 mg PO QDAY 08/09/24 Unknown His tory apixaban 5 mg tablet (Eliquis) 5 mg PO BID #60 tabs 08/14/24 Unkn own Rx Handicap Placard #1 ea 10/02/24 Unknown Rx bumetanide 2 mg tablet 2 mg PO ONCE 10/02/24 Unknown Hist ory calcitriol 0.25 mcg capsule 0.25 mcg PO QDAY 10/02/24 Unknown History dapagliflozin propanediol 5 mg 5 mg PO QDAY 10/02/24 Unknown Hist ory tablet (Far (more content not included)... Normal [facility] Hemoglobin A1con 10-19-2024 HbA1c (Bld) [Mass fraction] 7.0 % High <=5.6 [facility] Comment on above: Result Comment: Norm al < 5.7 % Prediabetic 5.7 - 6.4 % Diabetic >or= 6.5 % Please note range changes. Performed By: #### L 100.0100, L504.2610, L500.4050 #### [facility] [address] [place], [address] Hemoglobin A1c percentageOrd ered By: Rahul Verduzco on 10-19-2024 HbA1c (Bld) [Mass fraction] 7.0 % High <5.7 [facility] Comment on above: Normal < 5.7 % Predi abetic 5.7 - 6.4 % Diabetic >or= 6.5 % Please note range changes. Ketones Test strip Ql (U)Ord ered By: Rahul Verduzco on 10-19-2024 Ketones Ql (U) Negative Negative [facility] LDL calc ser/plasOrdered By: Rahul Verduzco on 10-19-2024 Cholesterol in LDL [Mass/Vol] 45 mg/dL [facility] Comment on above: Ccqqifsstf=084-422 m g/dL & Higher Cndy=659 mg/dL or greaterFriedwald Equation for LDL-C Laboratory - Chemistry and C hemistry - challengeOrdered By: Rahul Verduzco on 10-19-2024 AST [Catalytic activity/Vol] 47 U/L High <38 [facility] - Hematology and Cell countsOrdered By: Rhaul Verduzco on 10-19-2024 Anisocytosis Ql (Bld) 1+ [facility] Lactic Acidon 10-19-2024 Lactate [Moles/Vol] 1.0 mmol/L Normal 0.0-2.0 [facility] Comment on above: Order Comment: CLEAN CATCH Performed By: #### L 400.0001 #### [facility] [address] [place], [address] Lipid Profileon 10-19-2024 CHOL:HDL 2.58 Normal [facility] Comment on above: Performed By: #### L 400.0001 #### [facility] [address] [place], [address] Cholesterol [Mass/Vol] 107 mg/dL Normal <=200 [facility] Comment on above: Result Comment: Chol esterol level, Desirable <200 mg/dL Borderline high cholesterol 200-239 mg/dL High cholesterol >=240 mg/dL Recommendations of the NCEP Adult Treatment Panel for the following risk-cutoff thresholds for the [place] population. Performed By: #### L 400.0001 #### [facility] [address] [place], [address] Cholesterol in HDL [Mass/Vol] 42 mg/dL Normal [facility] Comment on above: Result Comment: Beckie onal Cholesterol Education Program (NCEP) guidelines: <40 mg/dL: Low HDL-cholesterol (major risk factor for CHD) >= 60 mg/dL: High HDL-cholesterol (negative risk factor for CHD) HDL-cholesterol is affected by a number of factors, e.g. smoking, exercise, hormones, sex and age. Performed By: #### L 400.0001 #### [facility] [address] [place], [address] Cholesterol in LDL [Mass/Vol] 45 mg/dL Normal [facility] Comment on above: Result Comment: Bord gndwvp=919-415 mg/dL Higher Xvuc=920 mg/dL or greater Friedwald Equation for LDL-C Performed By: #### L 400.0001 #### [facility] [address] [place], [address] Cholesterol in VLDL [Mass/Vol] 20 mg/dL Normal 5-40 [facility] Comment on above: Performed By: #### L 400.0001 #### [facility] [address] [place], [address] Triglyceride [Mass/Vol] 101 mg/dL Normal [facility] Comment on above: Result Comment: The drugs N-Acetylcysteine and Metamizole may falsely depress this assay. Normal range: <150 mg/dL Borderline High: 150-199 mg/dL High: 200-499 mg/dL Very High: >500 mg/dL Performed By: #### L 400.0001 #### [facility] [address] [place], [address] M100.678on 10-19-2024 M100.678 SARS-CoV-2 (COVID 19 ) Negative INFLUENZA A Negative INFLUENZA B Negative RSV PCR Negative Normal [facility] Comment on above: Performed By: #### M 100.678 ####[facility] [address] [place], [address] Magnesiumon 10-19-2024 Magnesium [Mass/Vol] 2.1 mg/dL Normal 1.5-2.2 [facility] Comment on above: Performed By: #### L 400.0001 #### [facility] [address] [facility] [place], [place], [address] Microscopic analysis of urin e for red blood cells (RBC)Ordered By: Rahul Verduzco on 10-19-2024 Microscopic analysis of urine for red blood cells (RBC) 0 SEEN /hpf 0-5 [facility] Mucus LM Ql (Urine sed)Order ed By: Rahul Verduzco on 10-19-2024 Mucus Ql (Urine sed) 0 SEEN /hpf [facility] Nitrite Test strip Ql (U)Ord ered By: Rahul Verduzco on 10-19-2024 Nitrite Ql (U) Negative Negative [facility] Ovalocyte detectionOrdered B y: Rahul Verduzco on 10-19-2024 Ovalocytes LM Ql (Bld) 1+ [facility] Phosphoruson 10-19-2024 Phosphate [Mass/Vol] 3.4 mg/dL Normal 2.7-4.5 [facility] Comment on above: Performed By: #### L 100.0100, L504.2610, L500.4050 #### [facility] [address] [facility] [place], [place], [address] Platelet morphologyOrdered B y: Rahul Verduzco on 10-19-2024 Platelet morphology finding Nom (Bld) LARGE [facility] Protein Test strip Ql (U)Ord ered By: Rahul Verduzco on 10-19-2024 Protein Ql (U) 100 mg/dl High Negative [facility] Screening total cholesterol/ high density lipoprotein (HDL) cholesterol ratioOrdered By: Rahul Verduzco on 10-19-2024 Cholesterol.total/Urvashi sterol in HDL [Mass ratio] 2.58 {ratio} [facility] Serum globulin measurementOr dered By: Rahul Verduzco on 10-19-2024 Globulin (S) [Mass/Vol] 3.0 g/dL 2.2-4.2 [facility] Serum or plasma alanine stafford otransferase (ALT) measurementOrdered By: Rahul Verduzco on 10-19-2024 ALT [Catalytic activity/Vol] 45 U/L <47 [facility] Serum or plasma albumin cory urement (mass/volume)Ordered By: Rahul Verduzco on 10-19-2024 Albumin [Mass/Vol] 3.9 g/dL 3.4-4.8 [facility] Serum or plasma albumin/glob ulin mass ratioOrdered By: Rahul Verduzco on 10-19-2024 Albumin/Globulin [Mass ratio] 1.3 {ratio} 0.9-2.4 [facility] Serum or plasma alkaline damaso sphatase measurementOrdered By: Rahul Verduzco on 10-19-2024 ALP [Catalytic activity/Vol] 51 U/L 40-129 [facility] Serum or plasma cholesterol in HDL measurement (mass/volume)Ordered By: Rahul Verduzco on 10-19-2024 Cholesterol in HDL [Mass/Vol] 42 mg/dL >40 [facility] Comment on above: National Cholesterol Education Program (NCEP) guidelines:<40 mg/dL: Low HDL-cholesterol (major risk factor for CHD)>= 60 mg/dL: High HDL-cholesterol (negative risk factor for CHD)HDL-cholesterol is affected by a number of factors, e.g. smoking, exercise, hormones, sex and age. Serum or plasma cholesterol measurement (mass/volume)Ordered By: Rahul Verduzco on 10-19-2024 Cholesterol [Mass/Vol] 107 mg/dL <201 [facility] Comment on above: Cholesterol level, D esirable <200 mg/dLBorderline high cholesterol 200-239 mg/dLHigh cholesterol >=240 mg/dLRecommendations of the NCEP Adult Treatment Panel for the following risk-cutoff thresholds for the [place] population. Squamous epithelial cells de tection in urine sediment by light microscopyOrdered By: Rahul Verduzco on 10-19-2024 Epithelial cells.squamous LM Ql (Urine sed) 0 SEEN /hpf 0-5 [facility] Stool Lactoferrin/WBCon 10-06 WBCST Fecal WBC Lactoferri n A Positive: Fecal WBC Lactoferrin present A Normal [facility] Comment on above: Performed By: #### L 100.0100, L504.2610, L500.4050 #### [facility] [address] [place], [address] Stool Occult Blood iFOBon STOB Positive Normal [facility] Comment on above: Performed By: #### M 100.7900 ####[facility] [address] [place], [address] Stool gastrointestinal hemog lobin detection by immunologic methodOrdered By: Rahul Verduzco on 10-19-2024 Lower GI hemoglobin IA Ql (Stl) Positive Abnormal [facility] Stool lactoferrin detection by immunoassayOrdered By: Rahul Verduzco on 10-19-2024 Lactoferrin IA Ql (Stl) [facility] TSH DL <= 0.005 mIU/L QnOrde red By: Rahul Verduzco on 10-19-2024 TSH Qn 2.330 uIU/mL 0.300-4.20 0 [facility] Thyroid Stim Hormone (TSH)on 10-19-2024 TSH 2.330 uIU/mL Normal 0.300-4.20 0 [facility] Comment on above: Performed By: #### L 400.0001 #### [facility] [address] [place], [place], [id number] Total proteinOrdered By: Ranjan Verduzco on 10-19-2024 Protein [Mass/Vol] 6.9 g/dL 5.9-8.4 [facility] Triglycerides measurementOrd ered By: Rahul Verduzco on 10-19-2024 Triglyceride [Mass/Vol] 101 mg/dL <199 [facility] Comment on above: The drugs N-Acetylcy steine and Metamizole may falsely depress this assay. Normal range: <150 mg/dLBorderline High: 150-199 mg/dLHigh: 200-499 mg/dLVery High: >500 mg/dL Urinalysis, Completeon 10-19 CAST,FINE GRAN 0-5 SEEN Normal 0-5 [facility] Comment on above: Order Comment: CLEAN CATCH Performed By: #### L 100.0100, L504.2610, L500.4050 #### [facility] [address] [place], [address] BACTERIA 0 SEEN Normal None Seen [facility] Comment on above: Order Comment: CLEAN CATCH Performed By: #### L 100.0100, L504.2610, L500.4050 #### [facility] [address] [place], [address] EPI,SQUAMOUS 0 SEEN Normal 0-5 [facility] Comment on above: Order Comment: CLEAN CATCH Performed By: #### L 100.0100, L504.2610, L500.4050 #### [facility] [address] [place], [address] Mucus Ql (Urine sed) 0 SEEN Normal [facility] Comment on above: Order Comment: CLEAN CATCH Performed By: #### L 100.0100, L504.2610, L500.4050 #### [facility] [address] [place], [address] RBC 0 SEEN Normal [address] [place] [address] Comment on above: Order Comment: CLEAN CATCH Performed By: #### L 100.0100, L504.2610, L500.4050 #### [facility] [address] [place], [address] WBC 0 SEEN Normal [address] [place] [address] Comment on above: Order Comment: CLEAN CATCH Performed By: #### L 100.0100, L504.2610, L500.4050 #### [facility] [address] [place], [address] BACTERIA 1+ /hpf Normal None Seen [facility] Comment on above: Order Comment: CLEAN CATCH Performed By: #### L 400.0001 #### [facility] [address] [place], [address] CAST,HYALINE 10-25 SEEN Normal [address] [place] [address] Comment on above: Order Comment: CLEAN CATCH Performed By: #### L 400.0001 #### [facility] [address] [place], [address] EPI,SQUAMOUS 0-5 SEEN Normal [address] [place] [address] Comment on above: Order Comment: CLEAN CATCH Performed By: #### L 400.0001 #### [facility] [address] [place], [address] RBC 0-5 SEEN Normal 0-5 [facility] Comment on above: Order Comment: CLEAN CATCH Performed By: #### L 400.0001 #### [facility] [address] [place], [address] WBC 0-5 SEEN Normal 0-5 [facility] Comment on above: Order Comment: CLEAN CATCH Performed By: #### L 400.0001 #### [facility] [address] [place], [address] Mucus Ql (Urine sed) 0 SEEN Normal [facility] Comment on above: Order Comment: CLEAN CATCH Performed By: #### L 400.0001 #### [facility] [address] [place], [address] Urine clarityOrdered By: Ranjan Verduzco on 10-19-2024 Clarity (U) Clear Clear [facility] Urine color determinationOrd ered By: Rahul Verduzco on 10-19-2024 Color (U) Yellow Yellow [facility] Urine glucose detectionOrder ed By: Rahul Verduzco on 10-19-2024 Glucose Ql (U) 100 mg/dl High Normal [facility] Urine leukocyte esterase det ection by dipstickOrdered By: Rahul Verduzco on 10-19-2024 Leukocyte esterase Test strip Ql (U) Negative Negative [facility] Urine pHOrdered By: Rahul wu on 10-19-2024 pH (U) 6.0 [pH] 5.0 - 8.0 [facility] Urine sediment bacteria coun t by microscopy (number/high power field)Ordered By: Rahul Verduzco on 10-19-2024 Bacteria LM.HPF (Urine sed) [#/Area] 0 /[HPF] None Seen [facility] Urine sediment fine granular cast count by microscopy (number/low power field)Ordered By: Rahul Verduzco on 10-19-2024 Fine Granular Casts LM.LPF (Urine sed) [#/Area] 0-5 SEEN /lpf 0-5 [facility] Urine specific gravity measu rementOrdered By: Rahul Verduzco on 10-19-2024 Specific gravity (U) [Rel density] 1.025 1.002-1.03 0 [facility] Urine urobilinogen measureme ntOrdered By: Rahul Verduzco on 10-19-2024 Urobilinogen Ql (U) Normal mg/dl Normal [facility] White blood cell countOrdere d By: Rahul Verduzco on 10-19-2024 White blood cell count 0 SEEN /hpf 0-5 [facility] Abdomen/Pelvis without Conto n 10-18-2024 Abdomen/Pelvis without Cont [facility] Imaging [facility] [address] [facility] [place], [place] [address] Abdomen/Pelvis without Cont MR#: [id number] Acct: [id number] Name: YEFRI YANEZ Rep #: [id number] : 1965 M 59 From: Estevan Quinn MD PCP: Dr. Daksha Turner MD Status: REG ER Study: Abdomen/Pelvis without Cont Date of Exam: 10/06 05/30 Exam# [id number] Ordering Dr: Veronica Jackson MD PROCEDURE: ABDOMEN/PELVIS WITHOUT CONT 10/18/2024 REASON FOR EXAM: PAIN TECHNIQUE: ABDOMEN/PELVIS WITHOUT CONT Noncontrast technique limits evaluation of the abdominal and pelvic viscera. Coronal and Sagittal reconstruction series were provided. One or more dose reduction techniques were used (e.g., Automated exposure control, adjustment of the mA and/or kV according to patient size, use of iterative reconstruction technique). RADIATION DOSE SUMMARY: CTDlvol: 21 mGy DLP: 1073 mGycm COMPARISON: 06/13/2024 FINDINGS: Peripheral right middle lobe scar/atelectasis with bronchiectasis. Upper limits of normal heart size, small pericardial effusion. Partially imaged expansile lytic lesion, right 6th rib, likely metastatic disease. Tiny bilateral pleural effusions. Unremarkable liver, gallbladder, pancreas, spleen, adrenal glands. Status post right-sided nephrectomy. Normal left kidney. No hydronephrosis normal bladder. Prostate. No retroperitoneal or pelvic adenopathy. No free air. Infrarenal aortic aneurysm, measuring 4.1 cm maximum AP dimension, stable. The bilateral common iliac arteries are also dilated, measuring up to 2.1 cm on the right, and 2.2 cm on the left, also stable. Nonobstructed bowel. Normal appendix. Diverticulosis. No acute large bowel findings. Lumbar spine degeneration. No acute abdominal wall findings. There is redemonstration of expansile lytic lesion, in the L4 posterior elements, also consistent with metastatic disease. CT/Abdomen/Pelvis without Cont IMPRESSION: No acute abdominopelvic findings. Status post right-sided nephrectomy with multifocal bone metastatic disease. Reading Location: [place] [address] CC: Dr. Daksha Turner MD; Dr. Veronica Jackson MD 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: Signed Normal [facility] Absolute lymphocyte countOrd ered By: Veronica Jackson on 10-18-2024 Lymphocytes Auto (Unsp spec) [#/Vol] 1.17 10*3/uL 0.83-4.51 [facility] Absolute neutrophil countOrd ered By: Veronica Jackson on 10-18-2024 Neutrophils (Bld) [#/Vol] 3.4 10*3/uL 2.0-7.7 [facility] Anion gap in Serum or Plasma Ordered By: Veronica Jackson on 10-18-2024 Anion gap [Moles/Vol] 16 mmol/L High 5-15 [facility] Automated lymphocyte count a s percentage of total leukocytesOrdered By: Veronica Jackson on 10-18-2024 Lymphocytes/100 WBC Auto (Unsp spec) 22.9 % 19-41 [facility] BUN/creatinine ratioOrdered By: Veronica Jackson on 10-18-2024 Urea nitrogen/Creatinine [Mass ratio] 11.3 mg/mg 10-20 [facility] Basophil percentageOrdered B y: Veronica Jackson on 10-18-2024 Basophils/100 WBC (Bld) 0.2 % 0-1 [facility] Bilirubin Test strip Ql (U)O rdered By: Veronica Jackson on 10-18-2024 Bilirubin Ql (U) 1 mg/dL High Negative [facility] Comment on above: COLOR OF URINE MAY A FFECT DIPSTICK RESULTS. Bilirubin, totalOrdered By: Veronica Jackson on 10-18-2024 Bilirubin [Mass/Vol] 0.54 mg/dL 0.00-1.30 [facility] CBC W/Diff, Automatedon 10-06 Absolute Lymph 1.17 X10 3/uL Normal 0.83-4.51 [facility] Comment on above: Performed By: #### L 100.0100, L504.2610, L500.4050 #### [facility] [address] [place], [address] Absolute Neut 3.4 X10 3/uL Normal 2.0-7.7 [facility] Comment on above: Performed By: #### L 100.0100, L504.2610, L500.4050 #### [facility] [address] [place], [address] Basophils/100 WBC (Bld) 0.2 % Normal 0-1 [facility] Comment on above: Performed By: #### L 100.0100, L504.2610, L500.4050 #### [facility] [address] [place], [address] Eosinophils/100 WBC (Bld) 2.5 % Normal 0-5 [facility] Comment on above: Performed By: #### L 100.0100, L504.2610, L500.4050 #### [facility] [address] [place], [address] Erythrocyte distribution width (RBC) [Ratio] 18.1 % High 11.6-14.6 [facility] Comment on above: Performed By: #### L 100.0100, L504.2610, L500.4050 #### [facility] [address] [place], [address] Hematocrit (Bld) [Volume fraction] 42.5 % Normal 40-54 [facility] Comment on above: Performed By: #### L 100.0100, L504.2610, L500.4050 #### [facility] [address] [place], [address] Hemoglobin (Bld) [Mass/Vol] 14.6 g/dL Normal 13.0-16.5 [facility] Comment on above: Performed By: #### L 100.0100, L504.2610, L500.4050 #### [facility] [address] [place], [address] IG% 0.400 Normal 0.0-0.9 [facility] Comment on above: Result Comment: IG% - Immature Granulocytes (promyelocytes, myelocytes and metamyelocytes) > 1% indicates that a LEFT SHIFT is Present. Performed By: #### L 100.0100, L504.2610, L500.4050 #### [facility] [address] [place], [address] Lymphocytes/100 WBC (Bld) 22.9 % Normal 19-41 [facility] Comment on above: Performed By: #### L 100.0100, L504.2610, L500.4050 #### [facility] [address] [place], [address] MCH (RBC) [Entitic mass] 32.6 pg High 27.0-32.0 [facility] Comment on above: Performed By: #### L 100.0100, L504.2610, L500.4050 #### [facility] [address] [place], [address] MCHC (RBC) [Mass/Vol] 34.4 g/dL Normal 32-36 [facility] Comment on above: Performed By: #### L 100.0100, L504.2610, L500.4050 #### [facility] [address] [place], [address] MCV (RBC) [Entitic vol] 94.9 fL High 80-94 [facility] Comment on above: Performed By: #### L 100.0100, L504.2610, L500.4050 #### [facility] [address] [place], [address] Monocytes/100 WBC (Bld) 7.8 % Normal 0-10 [facility] Comment on above: Performed By: #### L 100.0100, L504.2610, L500.4050 #### [facility] [address] [place], [address] Neutrophils/100 WBC (Bld) 66.2 % Normal 47-70 [facility] Comment on above: Performed By: #### L 100.0100, L504.2610, L500.4050 #### [facility] [address] [place], [address] Nucleated RBC (Bld) [#/Vol] 0 10*3/uL Normal 0-5 [facility] Comment on above: Performed By: #### L 100.0100, L504.2610, L500.4050 #### [facility] [address] [place], [address] Platelet mean volume (Bld) [Entitic vol] 10.4 fL Normal 6.2-12.0 [facility] Comment on above: Performed By: #### L 100.0100, L504.2610, L500.4050 #### [facility] [address] [place], [address] Platelets (Bld) [#/Vol] 201 10*3/uL Normal 150-450 [facility] Comment on above: Performed By: #### L 100.0100, L504.2610, L500.4050 #### [facility] [address] [place], [address] RBC (Bld) [#/Vol] 4.48 10*6/uL Low 4.6-6.2 [facility] Comment on above: Performed By: #### L 100.0100, L504.2610, L500.4050 #### [facility] [address] [place], [address] RDW SD 62.2 fl High 35.1-43.9 [facility] Comment on above: Performed By: #### L 100.0100, L504.2610, L500.4050 #### [facility] [address] [place], [address] WBC (Bld) [#/Vol] 5.1 10*3/uL Normal 4.4-11.0 [facility] Comment on above: Performed By: #### L 100.0100, L504.2610, L500.4050 #### [facility] [address] [place], [address] CDIFF (PCR)on 10-18-2024 CDIFF C diff DNA Spec Ql SANDOVAL+probe C diff DNA Spec Ql SANDOVAL+probe Reference Range: Negative Cepheid GeneXpert: polymerase chain reaction (PCR) 027 027 NAP1-B1 Presumptive Negative *for epidemiolologic???use C. Diff PCR Negative- No toxigenic C. Diff Detected Normal [facility] Comment on above: Performed By: #### M 100.6796 ####[facility] [address] [place], [address] Carbon dioxide, total [Moles /volume] in Central venous bloodOrdered By: Veronica Jackson on 10-18-2024 CO2 [Moles/Vol] 18.1 mmol/L Low 21.0-32.0 [facility] Chest PA and Lateralon 10-18 Chest PA and Lateral [facility] Imaging Services [address] [place] [address] Chest PA and Lateral MR#: [id number] Acct: [id number] Name: YEFRI YANEZ Rep #: [id number] : 1965 M 59 From: Mohan Ng MD PCP: Dr. Daksha Turner MD Status: REG ER Study: Chest PA and Lateral Date of Exam: 10/18/24 Exam# [id number] Ordering Dr: Veronica Jackson MD PROCEDURE: CHEST PA AND LATERAL 10/18/2024 REASON FOR EXAM: FEELING UNWELL TECHNIQUE: CHEST PA AND LATERAL COMPARISON: 02/10/2024 CT. FINDINGS: Right lateral chest wall masslike lesion may represent a previously expansile right 6th rib lesion. No consolidation. The heart is normal in size. RAD/Chest PA and Lateral IMPRESSION: Right lateral chest wall mass. Reading Location: [facility] CC: Dr. Daksha Turner MD; Dr. Veronica Jackson MD 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: Signed Normal [facility] Chloride assayOrdered By: Eunice Jackson on 10-18-2024 Chloride [Moles/Vol] 103 mmol/L 98-108 [facility] Clostridium difficile detect ion by polymerase chain reactionOrdered By: Veronica Jackson on 10-18-2024 C. difficile DNA SANDOVAL+probe Ql (Unsp spec) [facility] Comprehensive Metabolic Prof ilon 10-18-2024 Albumin [Mass/Vol] 4.0 g/dL Normal 3.4-4.8 [facility] Comment on above: Performed By: #### L 100.0100, L504.2610, L500.4050 #### [facility] [address] [place], [address] Albumin/Globulin [Mass ratio] 1.3 {ratio} Normal 0.9-2.4 [facility] Comment on above: Performed By: #### L 100.0100, L504.2610, L500.4050 #### [facility] [address] [place], [address] ALK PHOS 58 U/L Normal 40-129 [facility] Comment on above: Performed By: #### L 100.0100, L504.2610, L500.4050 #### [facility] [address] [place], [address] ALT [Catalytic activity/Vol] 47 U/L Normal <=46 [facility] Comment on above: Performed By: #### L 100.0100, L504.2610, L500.4050 #### [facility] [address] [place], [address] AST [Catalytic activity/Vol] 46 U/L High <=37 [facility] Comment on above: Performed By: #### L 100.0100, L504.2610, L500.4050 #### [facility] [address] [place], [address] Bilirubin [Mass/Vol] 0.54 mg/dL Normal 0.00-1.30 [facility] Comment on above: Performed By: #### L 100.0100, L504.2610, L500.4050 #### [facility] [address] [place], [address] BUN/CRE 11.3 RATIO Normal 10-20 [facility] Comment on above: Performed By: #### L 100.0100, L504.2610, L500.4050 #### [facility] [address] [place], [address] Calcium [Mass/Vol] 9.5 mg/dL Normal 7.6-11.0 [facility] Comment on above: Performed By: #### L 100.0100, L504.2610, L500.4050 #### [facility] [address] [place], [address] Chloride [Moles/Vol] 103 mmol/L Normal 98-108 [facility] Comment on above: Performed By: #### L 100.0100, L504.2610, L500.4050 #### [facility] [address] [place], [address] CO2 [Moles/Vol] 18.1 mmol/L Low 21.0-32.0 [facility] Comment on above: Performed By: #### L 100.0100, L504.2610, L500.4050 #### [facility] [address] [place], [address] Creatinine [Mass/Vol] 2.77 mg/dL High 0.70-1.20 [facility] Comment on above: Performed By: #### L 100.0100, L504.2610, L500.4050 #### [facility] [address] [place], [address] GAP 16 High 5-15 [facility] Comment on above: Performed By: #### L 100.0100, L504.2610, L500.4050 #### [facility] [address] [place], [address] GFR/1.73 sq M.predicted among non-blacks MDRD (S/P/Bld) [Vol rate/Area] 25 mL/min/{1.73_m2} Low >60 [facility] Comment on above: Result Comment: mL/m in/1.73m2 CKD-EPI Creatinine Equation (2020) Performed By: #### L 100.0100, L504.2610, L500.4050 #### [facility] [address] [place], [address] Globulin (S) [Mass/Vol] 3.0 g/dL Normal 2.2-4.2 [facility] Comment on above: Performed By: #### L 100.0100, L504.2610, L500.4050 #### [facility] [address] [place], [address] Glucose [Mass/Vol] 116 mg/dL High 70-99 [facility] Comment on above: Performed By: #### L 100.0100, L504.2610, L500.4050 #### [facility] [address] [place], [address] Potassium [Moles/Vol] 4.6 mmol/L Normal 3.3-5.1 [facility] Comment on above: Performed By: #### L 100.0100, L504.2610, L500.4050 #### [facility] [address] [place], [address] Sodium [Moles/Vol] 138 mmol/L Normal 133-145 [facility] Comment on above: Performed By: #### L 100.0100, L504.2610, L500.4050 #### [facility] [address] [place], [address] T PROT 7.0 g/dL Normal 5.9-8.4 [facility] Comment on above: Performed By: #### L 100.0100, L504.2610, L500.4050 #### [facility] [address] [place], [address] Urea nitrogen [Mass/Vol] 31 mg/dL High 4-19 [facility] Comment on above: Performed By: #### L 100.0100, L504.2610, L500.4050 #### [facility] [address] [place], [address] Emergency Department Summary on 10-18-2024 Emergency Department Summary [facility] Medical Records Department [address] [place] [address] Emergency Department Summary 10/18/24 MR#: [id number] Acct: [id number] Name: YEFRI YANEZ Rep #: [id number] : 1965 59 From: Veronica Jackson MD PCP: Dr. Daksha Turner MD Status:ADM IN Location: [place] [address] HPI History of Present Illness Chief Complaint: General Illness Narrative Narrative: Patient is a 59-year-old male presenting to the emergency department for abdominal pain, nausea and feeling generally unwell for the past week. Patient has a past medical history of metastatic renal cell carcinoma to bone status post nephrectomy, A-fib, hypertension, hyperlipidemia and CHF. Patient states that he has had diarrhea for months. States he feels dehydrated from all the diarrhea. Reports that last week he developed generalized abdominal pain and bloating as well. Endorses nausea with no vomiting. Denies fever or chills. Denies chest pain. States he was feeling short of breath right when he got here but he was not wearing oxygen this now no longer short of breath on his baseline 3 L nasal cannula. Denies any dysuria or hematuria. Denies any blood in his stool. Denies any recent antibiotics. [facility] Medical History Atrial fibrillation Abnormal chest x-ray Warfarin-induced coagulopathy Chronic a-fib CKD (chronic kidney disease) CKD (chronic kidney disease), stage III Systolic CHF Tobacco use NIMCO on CPAP Metastatic renal cell carcinoma to bone Renal cell cancer Hyperlipidemia GERD (gastroesophageal reflux disease) COPD (chronic obstructive pulmonary disease) Atrial fibrillation Hypertension Home Medications ???Medication ???Instructions ???Recorded ???Last Taken ???Type albuterol sulfate 2.5 mg/3 mL 2.5 mg (3 mL) inhalation PRN PRN 0 06/29/22 Unknown Rx (0.083 %) solution for nebulization Shortness Of Breath #75 mL ferrous sulfate 325 mg (65 mg 325 mg PO BID #30 tabs 06/29/22 Un known Rx iron) tablet fluticasone fur. 100 mcg-umeclid 1 inh inhalation DAILY #28 ea 06/07 06/28 Unknown Rx 62.5 mcg-vilant 25 mcg inhalat.powder (Trelegy Ellipta) pantoprazole 40 mg tablet,delayed 40 mg PO DAILY gerd #30 tabs 06/07 06/28 Unknown Rx release potassium chloride 20 mEq 20 meq PO DAILY #30 tabs 06/29/22 Unknown Rx tablet,extended release rosuvastatin 40 mg tablet 40 mg PO DAILY cholesterol #30 tab s 06/29/22 Unknown Rx losartan 50 mg tablet 50 mg PO DAILY #90 tabs 09/29/22 U nknown Rx spironolactone 25 mg tablet 25 mg PO DAILY #90 tabs 09/29/22 U nknown Rx carvedilol 12.5 mg tablet 12.5 mg PO BID #180 TABLETS Unknown Rx semaglutide 0.25 mg or 0.5 mg (2 0.25 mg subcut QWEEK 06/20/24 Unkn own History mg/3 mL) subcutaneous pen injector (Ozempic) cabozantinib 20 mg tablet 20 mg PO QDAY 08/09/24 Unknown His tory apixaban 5 mg tablet (Eliquis) 5 mg PO BID #60 tabs 08/14/24 Unkn own Rx Handicap Placard #1 ea 10/02/24 Unknown Rx bumetanide 2 mg tablet 2 mg PO ONCE 10/02/24 Unknown Hist ory calcitriol 0.25 mcg capsule 0.25 mcg PO QDAY 10/02/24 Unknown History dapagliflozin propanediol 5 mg 5 mg PO QDAY 10/02/24 Unknown Hist ory tablet (Farxiga) sertraline 50 mg tablet 50 mg PO QDAY 10/02/24 Unknown His tory tizanidine 4 mg capsule 4 mg PO BID PRN 10/02/24 Unknown H istory Allergy/AdvReac Type Severity Reaction Status Date / Time lisinopril Allergy Severe Angioedema Verified 10/18/24 21:09 guaifenesin (From Mucinex) Allergy Intermediate Bleeding Verified 10/18/24 21:09 aspirin (ASA) Allergy Other Verified 10/18/24 21:09 mushroom (mushrooms) Allergy Hives Verified 10/18/24 21:09 Penicillins Allergy PT UNSURE Verified 10/18/24 21:09 OF REACTION shellfish derived Allergy Hives Verified 10/18/24 21:09 Family History Father Cancer Mother Heart disease Hypertension Myocardial infarction Surgical History History of cardiac cath ( 07/2021) History of cardioversion ( 09/2021) History of nephrectomy, right Social History household members: spouse and family Smoking Status: Current every day smoker tobacco type: cigarettes Electronic Cigarette Use: with nicotine alcohol intake: current alcohol intake frequency: holidays/special occasions only substance use type: does not use ROS ROS ED ROS Narrative see HPI EXAM Physical Exam Narrative Exam Narrative: Vital signs: Reviewed General: Alert and oriented. No acute distress. Chronically ill-appearing. HEENT: Head is normocephalic and atraumatic, sinuses nontender, pupils equal round and reactive. N (more content not included)... Normal [facility] Eosinophil percentageOrdered By: Veronica Jackson on 10-18-2024 Eosinophils/100 WBC (Bld) 2.5 % 0-5 [facility] Erythrocyte distribution wid th ratioOrdered By: Veronica Jackson on 10-18-2024 Erythrocyte distribution width (RBC) [Ratio] 18.1 % High 11.6-14.6 [facility] Erythrocyte distribution wid th standard deviationOrdered By: Veronica Jackson on 10-18-2024 Erythrocyte distribution width (RBC) [Ratio] 62.2 fl High 35.1-43.9 [facility] Glomerular filtration rate ( GFR) estimation/1.73 sq m using serum, plasma, or whole bOrdered By: Veronica Jackson on 10-18-2024 GFR/1.73 sq M.predicted among non-blacks MDRD (S/P/Bld) [Vol rate/Area] 25 mL/min/{1.73_m2} Low >60 [facility] Comment on above: mL/min/1.73m2 CKD-EP I Creatinine Equation (2020) Hematocrit Auto (Bld) [Volum e fraction]Ordered By: Veronica Jackson on 10-18-2024 Hematocrit (Bld) [Volume fraction] 42.5 % 40-54 [facility] Hemoglobin measurementOrdere d By: Veronica Jackson on 10-18-2024 Hemoglobin (Bld) [Mass/Vol] 14.6 g/dL 13.0-16.5 [facility] Hyaline casts LM.LPF (Urine sed) [#/Area]Ordered By: Veronica Jackson on 10-18-2024 Hyaline casts (Urine sed) [#/Area] 10 /[LPF] 0-5 [facility] Immature granulocytes/100 WB C Auto (Bld)Ordered By: Veronica Jackson on 10-18-2024 Immature granulocytes/100 WBC (Bld) 0.400 % 0.0-0.9 [facility] Comment on above: IG% - Immature Granu locytes (promyelocytes, myelocytes and metamyelocytes) > 1% indicates that a LEFT SHIFT is Present. Influenza virus A and B and SARS-CoV-2 (COVID-19) and Respiratory syncytial virus RNAOrdered By: Veronica Jackson on 10-18-2024 SARS-CoV-2 (COVID-19) RNA SANDOVAL+probe Ql (Unsp spec) [facility] Ketones Test strip Ql (U)Ord ered By: Veronica Jackson on 10-18-2024 Ketones Ql (U) Negative Negative [facility] - Chemistry and C hemistry - challengeOrdered By: Veronica Jackson on 10-18-2024 AST [Catalytic activity/Vol] 46 U/L High <38 [facility] Lactic acid measurementOrder ed By: Veronica Jackson on 10-18-2024 Lactate [Moles/Vol] 1.0 mmol/L 0.0-2.0 [facility] Lipaseon 10-18-2024 Lipase [Catalytic activity/Vol] 86 U/L High 13-75 [facility] Comment on above: Result Comment: Sultana reid note: LIPASE revised reference range effective 22. New Lipase methodology. Expected to produce lower values than the previous assay method. NEW Reference Range: 13 - 75 U/L Performed By: #### L 100.0100, L504.2610, L500.4050 #### [facility] [address] [place] [address]. [place], [address] Lipase measurementOrdered By : Veronica Jackson on 10-18-2024 Lipase [Catalytic activity/Vol] 86 U/L High 13-75 [facility] Comment on above: Please note:LIPASE r evised reference range effective 22. New Lipase methodology. Expected to produce lower values than the previous assay method. NEW Reference Range: 13 - 75 U/L MCV (mean corpuscular volume ) determinationOrdered By: Veronica Jackson on 10-18-2024 MCV (RBC) [Entitic vol] 94.9 fL High 80-94 [facility] Mean corpuscular hemoglobin (MCH) determinationOrdered By: Veronica Jackson on 10-18-2024 MCH (RBC) [Entitic mass] 32.6 pg High 27.0-32.0 [facility] Mean corpuscular hemoglobin concentration (MCHC) determinationOrdered By: Veronica Jackson on 10-18-2024 MCHC (RBC) [Mass/Vol] 34.4 g/dL 32-36 [facility] Mean platelet volume determi nationOrdered By: Veronica Jackson on 10-18-2024 Platelet mean volume (Bld) [Entitic vol] 10.4 fL 6.2-12.0 [facility] Microscopic analysis of urin e for red blood cells (RBC)Ordered By: Veronica Jackson on 10-18-2024 Microscopic analysis of urine for red blood cells (RBC) 0-5 SEEN /hpf 0-5 [facility] Monocyte percentageOrdered B y: Veronica Jackson on 10-18-2024 Monocytes/100 WBC (Bld) 7.8 % 0-10 [facility] Mucus LM Ql (Urine sed)Order ed By: Veronica Jackson on 10-18-2024 Mucus Ql (Urine sed) 0 SEEN /hpf [facility] Neutrophil percentageOrdered By: Veronica Jackson on 10-18-2024 Neutrophils/100 WBC (Bld) 66.2 % 47-70 [facility] Nitrite Test strip Ql (U)Ord ered By: Veronica Jackson on 10-18-2024 Nitrite Ql (U) Negative Negative [facility] Nucleated red blood cell per centageOrdered By: Veronica Jackson on 10-18-2024 Nucleated RBC/100 WBC (Bld) [Ratio] 0 % 0-5 [facility] Platelet countOrdered By: Eunice Jackson on 10-18-2024 Platelets (Bld) [#/Vol] 201 10*3/uL 150-450 [facility] Potassium measurement (mass/ volume)Ordered By: Veronica Jackson on 10-18-2024 Potassium (Unsp spec) [Mass/Vol] 4.6 mmol/L 3.3-5.1 [facility] Protein Test strip Ql (U)Ord ered By: Veronica Jackson on 10-18-2024 Protein Ql (U) 30 mg/dl High Negative [facility] RBC Auto (Bld) [#/Vol]Ordere d By: Veronica Jackson on 10-18-2024 RBC (Bld) [#/Vol] 4.48 10*6/uL Low 4.6-6.2 [facility] Serum creatinine measurement (mass/volume)Ordered By: Veronica Jackson on 10-18-2024 Creatinine [Mass/Vol] 2.77 mg/dL High 0.70-1.20 [facility] Serum globulin measurementOr dered By: Veronica Jackson on 10-18-2024 Globulin (S) [Mass/Vol] 3.0 g/dL 2.2-4.2 [facility] Serum glucose measurement (m ass/volume)Ordered By: Veronica Jackson on 10-18-2024 Glucose [Mass/Vol] 116 mg/dL High 70-99 [facility] Serum or plasma alanine stafford otransferase (ALT) measurementOrdered By: Veronica Jackson on 10-18-2024 ALT [Catalytic activity/Vol] 47 U/L <47 [facility] Serum or plasma albumin cory urement (mass/volume)Ordered By: Veronica Jackson on 10-18-2024 Albumin [Mass/Vol] 4.0 g/dL 3.4-4.8 [facility] Serum or plasma albumin/glob ulin mass ratioOrdered By: Veronica Jackson on 10-18-2024 Albumin/Globulin [Mass ratio] 1.3 {ratio} 0.9-2.4 [facility] Serum or plasma alkaline damaso sphatase measurementOrdered By: Veronica Jackson on 10-18-2024 ALP [Catalytic activity/Vol] 58 U/L 40-129 [facility] Serum or plasma calcium cory urement (mass/volume)Ordered By: Veronica Jackson on 10-18-2024 Calcium [Mass/Vol] 9.5 mg/dL 7.6-11.0 [facility] Serum or plasma urea nitroge n measurement (mass/volume)Ordered By: Veronica Jackson on 10-18-2024 Urea nitrogen [Mass/Vol] 31 mg/dL High 4-19 [facility] Sodium levelOrdered By: Jesús Jackson on 10-18-2024 Sodium [Moles/Vol] 138 mmol/L 133-145 [facility] Squamous epithelial cells de tection in urine sediment by light microscopyOrdered By: Veronica Jackson on 10-18-2024 Epithelial cells.squamous LM Ql (Urine sed) 0-5 SEEN /hpf 0-5 [facility] Total proteinOrdered By: Neeta Jackson on 10-18-2024 Protein [Mass/Vol] 7.0 g/dL 5.9-8.4 [facility] Urine clarityOrdered By: Neeta Jackson on 10-18-2024 Clarity (U) Clear Clear [facility] Urine color determinationOrd ered By: Veronica Jackson on 10-18-2024 Color (U) Yellow Yellow [facility] Urine glucose detectionOrder ed By: Veronica Jackson on 10-18-2024 Glucose Ql (U) 100 mg/dl High Normal [facility] Urine leukocyte esterase det ection by dipstickOrdered By: Veronica Jackson on 10-18-2024 Leukocyte esterase Test strip Ql (U) Negative Negative [facility] Urine pHOrdered By: Veronica vega on 10-18-2024 pH (U) 5.0 [pH] 5.0 - 8.0 [facility] Urine sediment bacteria coun t by microscopy (number/high power field)Ordered By: Veronica Jackson on 10-18-2024 Bacteria LM.HPF (Urine sed) [#/Area] 1 /[HPF] None Seen [facility] Urine specific gravity measu rementOrdered By: Veronica Jackson on 10-18-2024 Specific gravity (U) [Rel density] 1.020 1.002-1.03 0 [facility] Urine urobilinogen measureme ntOrdered By: Veronica Jackson on 10-18-2024 Urobilinogen Ql (U) Normal mg/dl Normal [facility] White blood cell (WBC) count Ordered By: Veronica Jackson on 10-18-2024 WBC (Bld) [#/Vol] 5.1 10*3/uL 4.4-11.0 [facility] White blood cell countOrdere d By: Veronica Jackson on 10-18-2024 White blood cell count 0-5 SEEN /hpf 0-5 [facility] Absolute lymphocyte countOrd ered By: Gini Couch on 10-02-2024 Lymphocytes Auto (Unsp spec) [#/Vol] 1.41 10*3/uL 0.83-4.51 [facility] Absolute neutrophil countOrd ered By: Gini Couch on 10-02-2024 Neutrophils (Bld) [#/Vol] 3.8 10*3/uL 2.0-7.7 [facility] Anion gap in Serum or Plasma Ordered By: Gini Couch on 10-02-2024 Anion gap [Moles/Vol] 13 mmol/L 5-15 [facility] Automated blood erythrocyte countOrdered By: Gini Couch on 10-02-2024 RBC (Bld) [#/Vol] 4.48 10*6/uL Low 4.6-6.2 [facility] Comment on above: Performed By: #### L 500.2500, L100.0100 #### [facility] [address] [place], [address] Automated blood hematocrit ( percentage)Ordered By: Gini Couch on 10-02-2024 Hematocrit (Bld) [Volume fraction] 43.4 % Normal 40-54 [facility] Comment on above: Performed By: #### L 500.2500, L100.0100 #### [facility] [address] [place], [address] Automated lymphocyte count a s percentage of total leukocytesOrdered By: Gini Couch on 10-02-2024 Lymphocytes/100 WBC Auto (Unsp spec) 24.7 % 19-41 [facility] BUN/creatinine ratioOrdered By: Gini Couch on 10-02-2024 Urea nitrogen/Creatinine [Mass ratio] 10.6 mg/mg 10- [facility] Basic Metabolic Profile (BMP )on 10-02-2024 BUN/CRE 10.6 RATIO Normal - [facility] Comment on above: Performed By: #### L 500.2500, L100.0100 #### [facility] [address] [place], [address] Calcium [Mass/Vol] 9.5 mg/dL Normal 7.6-11.0 [facility] Comment on above: Performed By: #### L 500.2500, L100.0100 #### [facility] [address] [place], [address] Chloride [Moles/Vol] 102 mmol/L Normal 98-108 [facility] Comment on above: Performed By: #### L 500.2500, L100.0100 #### [facility] [address] [place], [address] CO2 [Moles/Vol] 20.4 mmol/L Low 21.0-32.0 [facility] Comment on above: Performed By: #### L 500.2500, L100.0100 #### [facility] [address] [place], [address] Creatinine [Mass/Vol] 2.65 mg/dL High 0.70-1.20 [facility] Comment on above: Performed By: #### L 500.2500, L100.0100 #### [facility] [address] [place], [address] GAP 13 Normal 5-15 [facility] Comment on above: Performed By: #### L 500.2500, L100.0100 #### [facility] [address] [place], [address] GFR/1.73 sq M.predicted among non-blacks MDRD (S/P/Bld) [Vol rate/Area] 27 mL/min/{1.73_m2} Low >60 [facility] Comment on above: Result Comment: mL/m in/1.73m2 CKD-EPI Creatinine Equation (2020) Performed By: #### L 500.2500, L100.0100 #### [facility] [address] [place], [address] Glucose [Mass/Vol] 131 mg/dL High 70-99 [facility] Comment on above: Performed By: #### L 500.2500, L100.0100 #### [facility] [address] [place], [address] Potassium [Moles/Vol] 4.5 mmol/L Normal 3.3-5.1 [facility] Comment on above: Result Comment: Hemo lysis present, Results??could be affected. ?? Performed By: #### L 500.2500, L100.0100 #### [facility] [address] [place], [address] Sodium [Moles/Vol] 136 mmol/L Normal 133-145 [facility] Comment on above: Performed By: #### L 500.2500, L100.0100 #### [facility] [address] [place], [address] Urea nitrogen [Mass/Vol] 28 mg/dL High 4-19 [facility] Comment on above: Performed By: #### L 500.2500, L100.0100 #### [facility] [address] [place], [address] Basophil percentageOrdered B y: Gini Couch on 10-02-2024 Basophils/100 WBC (Bld) 0.4 % Normal 0-1 [facility] Comment on above: Performed By: #### L 500.2500, L100.0100 #### [facility] [address] [place], [address] CBC W/Diff, Automatedon -2 Absolute Lymph 1.41 X10 3/uL Normal 0.83-4.51 [facility] Comment on above: Performed By: #### L 500.2500, L100.0100 #### [facility] [address] [place], [address] Absolute Neut 3.8 X10 3/uL Normal 2.0-7.7 [facility] Comment on above: Performed By: #### L 500.2500, L100.0100 #### [facility] [address] [place], [address] IG% 0.400 Normal 0.0-0.9 [facility] Comment on above: Result Comment: IG% - Immature Granulocytes (promyelocytes, myelocytes and metamyelocytes) > 1% indicates that a LEFT SHIFT is Present. Performed By: #### L 500.2500, L100.0100 #### [facility] [address] [place], [address] Lymphocytes/100 WBC (Bld) 24.7 % Normal 19-41 [facility] Comment on above: Performed By: #### L 500.2500, L100.0100 #### [facility] [address] [place], [address] Nucleated RBC (Bld) [#/Vol] 0.5 10*3/uL Normal 0-5 [facility] Comment on above: Performed By: #### L 500.2500, L100.0100 #### [facility] [address] [place], [address] RDW SD 61.3 fl High 35.1-43.9 [facility] Comment on above: Performed By: #### L 500.2500, L100.0100 #### [facility] [address] [place], [address] Carbon dioxide, total [Moles /volume] in Central venous bloodOrdered By: Gini Couhc on 10-02-2024 CO2 [Moles/Vol] 20.4 mmol/L Low 21.0-32.0 [facility] Cardiology Visit Reporton Cardiology Visit Report [facility] [address] [place] [address] OFFICE VISIT Date of Service: 10/02/24 MR#: [id number] Acct: [id number] Name: YEFRI YANEZ Rep #: [id number] : 1965 Provider: JARVIS campos Age/Sex: 59/M Location: [facility] Status: Signed HPI HPI History of Present [...] the care of the oncologist here at [facility]. He had presented to the hospital [...] he had a DC cardioversion at [facility] in September 2021. He had previously been seeing a rouge presser in the [facility]. During this admission to the hospital in May 2022 his medications were optimized he was diuresed his creatinine actually improved and he was subsequently discharged to find a 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 He also had a history of atrial [...] air Intake Visit Reasons: 6-8 W [facility] [employer] Steam [employer] Required: No Accompanied by: Self Is patient [...] fur. 100 mcg-umeclid 1 inh inhalation DAILY #06/07 (more content not included)... Normal [facility] Chloride assayOrdered By: Eduardo Couch on 10-02-2024 Chloride [Moles/Vol] 102 mmol/L 98-108 [facility] Eosinophil percentageOrdered By: Gini Couch on 10-02-2024 Eosinophils/100 WBC (Bld) 1.9 % Normal 0-5 [facility] Comment on above: Performed By: #### L 500.2500, L100.0100 #### [facility] [address] [place], [address] Erythrocyte distribution wid th ratioOrdered By: Gini Couch on 10-02-2024 Erythrocyte distribution width (RBC) [Ratio] 17.2 % High 11.6-14.6 [facility] Comment on above: Performed By: #### L 500.2500, L100.0100 #### [facility] [address] [place], [address] Erythrocyte distribution wid th standard deviationOrdered By: Gini Couch on 10-02-2024 Erythrocyte distribution width (RBC) [Ratio] 61.3 fl High 35.1-43.9 [facility] Glomerular filtration rate ( GFR) estimation/1.73 sq m using serum, plasma, or whole bOrdered By: Gini Couch on 10-02-2024 GFR/1.73 sq M.predicted among non-blacks MDRD (S/P/Bld) [Vol rate/Area] 27 mL/min/{1.73_m2} Low >60 [facility] Comment on above: mL/min/1.73m2 CKD-EP I Creatinine Equation (2020) Hemoglobin measurementOrdere d By: Gini Couch on 10-02-2024 Hemoglobin (Bld) [Mass/Vol] 14.6 g/dL Normal 13.0-16.5 [facility] Comment on above: Performed By: #### L 500.2500, L100.0100 #### [facility] [address] [place], [address] Immature granulocytes/100 WB C Auto (Bld)Ordered By: Gini Couch on 10-02-2024 Immature granulocytes/100 WBC (Bld) 0.400 % 0.0-0.9 [facility] Comment on above: IG% - Immature Granu locytes (promyelocytes, myelocytes and metamyelocytes) > 1% indicates that a LEFT SHIFT is Present. MCV (mean corpuscular volume ) determinationOrdered By: Gini Couch on 10-02-2024 MCV (RBC) [Entitic vol] 96.9 fL High 80-94 [facility] Comment on above: Performed By: #### L 500.2500, L100.0100 #### [facility] [address] [facility] [place], [address] Mean corpuscular hemoglobin (MCH) determinationOrdered By: Gini Couch on 10-02-2024 MCH (RBC) [Entitic mass] 32.6 pg High 27.0-32.0 [facility] Comment on above: Performed By: #### L 500.2500, L100.0100 #### [facility] [address] [place], [address] Mean corpuscular hemoglobin concentration (MCHC) determinationOrdered By: Gini Couch on 10-02-2024 MCHC (RBC) [Mass/Vol] 33.6 g/dL Normal 32-36 [facility] Comment on above: Performed By: #### L 500.2500, L100.0100 #### [facility] [address] [place], [address] Mean platelet volume determi nationOrdered By: Gini Couch on 10-02-2024 Platelet mean volume (Bld) [Entitic vol] 10.7 fL Normal 6.2-12.0 [facility] Comment on above: Performed By: #### L 500.2500, L100.0100 #### [facility] [address] [place], [address] Monocyte percentageOrdered B y: Gini Couch on 10-02-2024 Monocytes/100 WBC (Bld) 5.4 % Normal 0-10 [facility] Comment on above: Performed By: #### L 500.2500, L100.0100 #### [facility] [address] [place], [address] Neutrophil percentageOrdered By: Gini Couch on 10-02-2024 Neutrophils/100 WBC (Bld) 67.2 % Normal 47-70 [facility] Comment on above: Performed By: #### L 500.2500, L100.0100 #### [facility] [address] [place], [address] Nucleated red blood cell per centageOrdered By: Gini Couch on 10-02-2024 Nucleated RBC/100 WBC (Bld) [Ratio] 0.5 % 0-5 [facility] Platelet countOrdered By: Eduardo Couch on 10-02-2024 Platelets (Bld) [#/Vol] 213 10*3/uL Normal 150-450 [facility] Comment on above: Performed By: #### L 500.2500, L100.0100 #### [facility] [address] [facility] [place], [address] Potassium measurement (mass/ volume)Ordered By: Gini Couch on 10-02-2024 Potassium (Unsp spec) [Mass/Vol] 4.5 mmol/L 3.3-5.1 [facility] Comment on above: Hemolysis present, R esults could be affected. Serum creatinine measurement (mass/volume)Ordered By: Gini Couch on 10-02-2024 Creatinine [Mass/Vol] 2.65 mg/dL High 0.70-1.20 [facility] Serum glucose measurement (m ass/volume)Ordered By: Gini Couch on 10-02-2024 Glucose [Mass/Vol] 131 mg/dL High 70-99 [facility] Serum or plasma calcium cory urement (mass/volume)Ordered By: Gini Couch on 10-02-2024 Calcium [Mass/Vol] 9.5 mg/dL 7.6-11.0 [facility] Serum or plasma urea nitroge n measurement (mass/volume)Ordered By: Gini Couch on 10-02-2024 Urea nitrogen [Mass/Vol] 28 mg/dL High 4-19 [facility] Sodium levelOrdered By: Mercedes Couch on 10-02-2024 Sodium [Moles/Vol] 136 mmol/L 133-145 [facility] White blood cell (WBC) count Ordered By: Gini Couch on 10-02-2024 WBC (Bld) [#/Vol] 5.7 10*3/uL Normal 4.4-11.0 [facility] Comment on above: Performed By: #### L 500.2500, L100.0100 #### [facility] [address] [place], [address] Anion gap in Serum or Plasma Ordered By: Daksha Turner on 09-25-2024 Anion gap [Moles/Vol] 11 mmol/L - [facility] BUN/creatinine ratioOrdered By: Daksha Turner on 09-25-2024 Urea nitrogen/Creatinine [Mass ratio] 11.7 mg/mg - [facility] Basic Metabolic Profile (BMP )on 09-25-2024 BUN/CRE 11.7 RATIO Normal 12-25 [facility] Comment on above: Order Comment: 1 Performed By: #### L 100.0100, L504.2610, L500.4050 #### [facility] [address] [place], [address] Calcium [Mass/Vol] 9.7 mg/dL Normal 7.6-11.0 [facility] Comment on above: Order Comment: 1 Performed By: #### L 100.0100, L504.2610, L500.4050 #### [facility] [address] [place], [address] Chloride [Moles/Vol] 102 mmol/L Normal 98-108 [facility] Comment on above: Order Comment: 1 Performed By: #### L 100.0100, L504.2610, L500.4050 #### [facility] [address] [place], [address] CO2 [Moles/Vol] 23.7 mmol/L Normal 21.0-32.0 [facility] Comment on above: Order Comment: 1 Performed By: #### L 100.0100, L504.2610, L500.4050 #### [facility] [address] [place], [address] Creatinine [Mass/Vol] 2.11 mg/dL High 0.70-1.20 [facility] Comment on above: Order Comment: 1 Performed By: #### L 100.0100, L504.2610, L500.4050 #### [facility] [address] [place], [address] GAP 11 Normal 5-15 [facility] Comment on above: Order Comment: 1 Performed By: #### L 100.0100, L504.2610, L500.4050 #### [facility] [address] [place], [address] GFR/1.73 sq M.predicted among non-blacks MDRD (S/P/Bld) [Vol rate/Area] 35 mL/min/{1.73_m2} Low >60 [facility] Comment on above: Order Comment: 1 Result Comment: mL/m in/1.73m2 CKD-EPI Creatinine Equation (2020) Performed By: #### L 100.0100, L504.2610, L500.4050 #### [facility] [address] [place], [address] Glucose [Mass/Vol] 99 mg/dL Normal 70-99 [facility] Comment on above: Order Comment: 1 Performed By: #### L 100.0100, L504.2610, L500.4050 #### [facility] [address] [place], [address] Potassium [Moles/Vol] 4.5 mmol/L Normal 3.3-5.1 [facility] Comment on above: Order Comment: 1 Performed By: #### L 100.0100, L504.2610, L500.4050 #### [facility] [address] [place], [address] Sodium [Moles/Vol] 136 mmol/L Normal 133-145 [facility] Comment on above: Order Comment: 1 Performed By: #### L 100.0100, L504.2610, L500.4050 #### [facility] [address] [place], [address] Urea nitrogen [Mass/Vol] 25 mg/dL High 4-19 [facility] Comment on above: Order Comment: 1 Performed By: #### L 100.0100, L504.2610, L500.4050 #### [facility] [address] [place], [address] CBC-Complete Blood Cnt No Di ffon 09-25-2024 Erythrocyte distribution width (RBC) [Ratio] 17.0 % High 11.6-14.6 [facility] Comment on above: Order Comment: 1 Performed By: #### L 100.0100, L504.2610, L500.4050 #### [facility] [address] [place], [address] Hematocrit (Bld) [Volume fraction] 41.6 % Normal 40-54 [facility] Comment on above: Order Comment: 1 Performed By: #### L 100.0100, L504.2610, L500.4050 #### [facility] [address] [place], [address] Hemoglobin (Bld) [Mass/Vol] 14.2 g/dL Normal 13.0-16.5 [facility] Comment on above: Order Comment: 1 Performed By: #### L 100.0100, L504.2610, L500.4050 #### [facility] [address] [place], [address] MCH (RBC) [Entitic mass] 32.6 pg High 27.0-32.0 [facility] Comment on above: Order Comment: 1 Performed By: #### L 100.0100, L504.2610, L500.4050 #### [facility] [address] [place], [address] MCHC (RBC) [Mass/Vol] 34.1 g/dL Normal 32-36 [facility] Comment on above: Order Comment: 1 Performed By: #### L 100.0100, L504.2610, L500.4050 #### [facility] [address] [place], [address] MCV (RBC) [Entitic vol] 95.6 fL High 80-94 [facility] Comment on above: Order Comment: 1 Performed By: #### L 100.0100, L504.2610, L500.4050 #### [facility] [address] [place], [address] Platelet mean volume (Bld) [Entitic vol] 11.0 fL Normal 6.2-12.0 [facility] Comment on above: Order Comment: 1 Performed By: #### L 100.0100, L504.2610, L500.4050 #### [facility] [address] [place], [address] Platelets (Bld) [#/Vol] 189 10*3/uL Normal 150-450 [facility] Comment on above: Order Comment: 1 Performed By: #### L 100.0100, L504.2610, L500.4050 #### [facility] [address] [place], [address] RBC (Bld) [#/Vol] 4.35 10*6/uL Low 4.6-6.2 [facility] Comment on above: Order Comment: 1 Performed By: #### L 100.0100, L504.2610, L500.4050 #### [facility] [address] [place], [address] RDW SD 59.6 fl High 35.1-43.9 [facility] Comment on above: Order Comment: 1 Performed By: #### L 100.0100, L504.2610, L500.4050 #### [facility] [address] [place], [address] WBC (Bld) [#/Vol] 6.1 10*3/uL Normal 4.4-11.0 [facility] Comment on above: Order Comment: 1 Performed By: #### L 100.0100, L504.2610, L500.4050 #### [facility] [address] [place], [address] Carbon dioxide, total [Moles /volume] in Central venous bloodOrdered By: Daksha Turner on 09-25-2024 CO2 [Moles/Vol] 23.7 mmol/L 21.0-32.0 [facility] Cardiovascular stress test r eportOrdered By: Moises Gaona on 09-25-2024 Study report [facility] [address] [place] [address] MR#: [id number] Acct: [id number] Name: YEFRI YANEZ Rep #: [id number] : 1965 59 From: Moises Gaona MD Primary Care: Dr. Daksha Turner MD Status: REG CLI Referring Dr: Gini Couch NP PROCESS LINE OPERATOR-C Sex: M AA Stress Test Report Pharmacologic [...] ejection fraction. Previous apical infarct 09/25/241749 Date _ Moises Gaona MD CC: KENYETTA-C Gini Couch; Dr. 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 [address] Echo Complete 09/24/242019 MR#: [id number] Acct: [id number] Name: YEFRI YANEZ Rep #: [id number] : 1965 59 From: Moises Gaona MD Attending Dr: Gini Couch NP-C Status: REG C LI Ordering Dr: Gini Couch NP PROCESS LINE OPERATOR-C Date: 09/25/24 Location: [facility] Sex: M AA Admitted: [...] RCS 09/25/241728 Date Moises Gaona MD CC: PROCESS LINE OPERATOR-C Gini Couch; Dr. 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 [address] Echo Complete 09/24/242019 MR#: [id number] Acct: [id number] Name: YEFRI YANEZ Rep #:[id number] : 1965 59 From: Moises Scott Attending Dr: LILIAN ValenzuelaC S tatus: REG CLI Ordering Dr: Gini Couch NP Syd e: 09/25/24 Location: [facility] Sex: M [...] 09/25/241728 Date _ Moises Gaona MD CC: PROCESS LINE OPERATOR-C Gini Couch; Dr. 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 [place], [place], [address] Erythrocyte distribution wid th ratioOrdered By: Daksha Turner on 09-25-2024 Erythrocyte distribution width (RBC) [Ratio] 17.0 % High 11.6-14.6 [facility] Erythrocyte distribution wid th standard deviationOrdered By: Daksha Turner on 09-25-2024 Erythrocyte distribution width (RBC) [Ratio] 59.6 fl High 35.1-43.9 [facility] Erythrocyte sedimentation ra teOrdered By: Daksha Turner on 09-25-2024 ESR (Bld) [Velocity] 30 mm/h High 0-20 [facility] Ferritinon 09-25-2024 Ferritin [Mass/Vol] 590 ng/mL High 37-417 [facility] Comment on above: Order Comment: 1 Performed By: #### L 100.0100, L504.2610, L500.4050 #### [facility] [address] [place], [address] Glomerular filtration rate ( GFR) estimation/1.73 sq m using serum, plasma, or whole bOrdered By: Daksha Turner on 09-25-2024 GFR/1.73 sq M.predicted among non-blacks MDRD (S/P/Bld) [Vol rate/Area] 35 mL/min/{1.73_m2} Low >60 [facility] Comment on above: mL/min/1.73m2 CKD-EP I Creatinine Equation (2020) Hematocrit Auto (Bld) [Volum e fraction]Ordered By: Daksha Turner on 09-25-2024 Hematocrit (Bld) [Volume fraction] 41.6 % 40-54 [facility] Hemoglobin measurementOrdere d By: Daksha Turner on 09-25-2024 Hemoglobin (Bld) [Mass/Vol] 14.2 g/dL 13.0-16.5 [facility] Ironon 09-25-2024 Iron [Mass/Vol] 115 ug/dL Normal 65-175 [facility] Comment on above: Order Comment: 1 Performed By: #### L 100.0100, L504.2610, L500.4050 #### [facility] [address] [place], [address] Iron measurement (mass/mass) Ordered By: Daksha Turner on 09-25-2024 Iron (Unsp spec) [Mass/Mass] 115 ug/dL 65-175 [facility] MCV (mean corpuscular volume ) determinationOrdered By: Daksha Turner on 09-25-2024 MCV (RBC) [Entitic vol] 95.6 fL High 80-94 [facility] Magnesiumon 09-25-2024 Magnesium [Mass/Vol] 1.9 mg/dL Normal 1.5-2.2 [facility] Comment on above: Order Comment: 1 Performed By: #### L 100.0100, L504.2610, L500.4050 #### [facility] [address] [place], [address] Magnesium measurement (mass/ volume)Ordered By: Daksha Turner on 09-25-2024 Magnesium (Unsp spec) [Mass/Vol] 1.9 mg/dL 1.5-2.2 [facility] Mean corpuscular hemoglobin (MCH) determinationOrdered By: Daksha Turner on 09-25-2024 MCH (RBC) [Entitic mass] 32.6 pg High 27.0-32.0 [facility] Mean corpuscular hemoglobin concentration (MCHC) determinationOrdered By: Daksha Turner on 09-25-2024 MCHC (RBC) [Mass/Vol] 34.1 g/dL 32-36 [facility] Mean platelet volume determi nationOrdered By: Daksha Turner on 09-25-2024 Platelet mean volume (Bld) [Entitic vol] 11.0 fL 6.2-12.0 [facility] PTHINon 09-25-2024 PTH 242 pg/mL High 11-61 [facility] Comment on above: Order Comment: Order Date: 09/25/24Order Info: [id number] - PTHIN Performed By: #### L 100.0100, L504.2610, L500.4050 #### [facility] [address] [place] [address], [address] Platelet countOrdered By: Sejal Turner on 09-25-2024 Platelets (Bld) [#/Vol] 189 10*3/uL 150-450 [facility] Potassium measurement (mass/ volume)Ordered By: Daksha Turner on 09-25-2024 Potassium (Unsp spec) [Mass/Vol] 4.5 mmol/L 3.3-5.1 [facility] RBC Auto (Bld) [#/Vol]Ordere d By: Daksha Turner on 09-25-2024 RBC (Bld) [#/Vol] 4.35 10*6/uL Low 4.6-6.2 [facility] Serum creatinine measurement (mass/volume)Ordered By: Daksha Turner on 09-25-2024 Creatinine [Mass/Vol] 2.11 mg/dL High 0.70-1.20 [facility] Serum glucose measurement (m ass/volume)Ordered By: Daksha Turner on 09-25-2024 Glucose [Mass/Vol] 99 mg/dL 70-99 [facility] Serum or plasma calcium cory urement (mass/volume)Ordered By: Daksha Turner on 09-25-2024 Calcium [Mass/Vol] 9.7 mg/dL 7.6-11.0 [facility] Serum or plasma ferritin meliton surement (mass/volume)Ordered By: Daksha Turner on 09-25-2024 Ferritin [Mass/Vol] 590 ng/mL High 37-417 [facility] Serum or plasma urea nitroge n measurement (mass/volume)Ordered By: Daksha Turner on 09-25-2024 Urea nitrogen [Mass/Vol] 25 mg/dL High 4-19 [facility] Sodium levelOrdered By: Shawna Turner on 09-25-2024 Sodium [Moles/Vol] 136 mmol/L 133-145 [facility] Stress Reporton 09-25-2024 Stress Report [facility] [address] [place] [address] MR#: [id number] Acct: [id number] Name: YEFRI YANEZ Rep #: [id number] : 1965 59 From: Moises Gaona MD Primary Care: Dr. 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, [address] Vitamin B12 ser/plasOrdered By: Daksha Turner on 09-25-2024 Cobalamin (Vitamin B12) [Mass/Vol] 490 pg/mL 180-914 [facility] Vitamin D,25 Hydroxyon 09-25 Vitamin D 25-OH 16.2 ng/mL Low 30-100 [facility] Comment on above: Order Comment: Order Date: 09/25/24Order Info: [id number] - BMPOrder Info: [id number] - MGOrder Info: [id number] - FEOrder Info: [id number] - MARTIN Result Comment: Constanza min D Status Deficiency: <20 ng/mL (50nmol/L) Insufficiency: 20-30 ng/mL (50-75 nmol/L) Sufficiency: 30-100 ng/mL (75-250 nmol/L) Toxicity: >100 ng/mL (>250 nmol/L) Performed By: #### L 100.0100, L504.2610, L500.4050 #### [facility] [address] [place], [address] White blood cell (WBC) count Ordered By: Daksha Turner on 09-25-2024 WBC (Bld) [#/Vol] 6.1 10*3/uL 4.4-11.0 [facility] Absolute lymphocyte countOrd ered By: Gini Couch on 08-14-2024 Lymphocytes Auto (Unsp spec) [#/Vol] 1.02 10*3/uL 0.83-4.51 [facility] Absolute neutrophil countOrd ered By: Gini Couch on 08-14-2024 Neutrophils (Bld) [#/Vol] 3.6 10*3/uL 2.0-7.7 [facility] Anion gap in Serum or Plasma Ordered By: Gini Couch on 08-14-2024 Anion gap [Moles/Vol] 10 mmol/L 5-15 [facility] Automated lymphocyte count a s percentage of total leukocytesOrdered By: Gini Couch on 08-14-2024 Lymphocytes/100 WBC Auto (Unsp spec) 18.9 % Low 19-41 [facility] BUN/creatinine ratioOrdered By: Gini Couch on 08-14-2024 Urea nitrogen/Creatinine [Mass ratio] 9.5 mg/mg Low 10-20 [facility] Basic Metabolic Profile (BMP )on 08-14-2024 BUN/CRE 9.5 RATIO Low - [facility] Comment on above: Performed By: #### L 501.5200, L100.0100, L500.2500, L501.9520 ####[facility] [address] [place], [address] Calcium [Mass/Vol] 9.5 mg/dL Normal 7.6-11.0 [facility] Comment on above: Performed By: #### L 501.5200, L100.0100, L500.2500, L501.9520 ####[facility] [address] [place], [address] Chloride [Moles/Vol] 102 mmol/L Normal 98-108 [facility] Comment on above: Performed By: #### L 501.5200, L100.0100, L500.2500, L501.9520 ####[facility] [address] [place], [address] CO2 [Moles/Vol] 26.2 mmol/L Normal 21.0-32.0 [facility] Comment on above: Performed By: #### L 501.5200, L100.0100, L500.2500, L501.9520 ####[facility] [address] [place], [address] Creatinine [Mass/Vol] 2.22 mg/dL High 0.70-1.20 [facility] Comment on above: Performed By: #### L 501.5200, L100.0100, L500.2500, L501.9520 ####[facility] [address] [place], [address] GAP 10 Normal 5-15 [facility] Comment on above: Performed By: #### L 501.5200, L100.0100, L500.2500, L501.9520 ####[facility] [address] [place], [address] GFR/1.73 sq M.predicted among non-blacks MDRD (S/P/Bld) [Vol rate/Area] 33 mL/min/{1.73_m2} Low >60 [facility] Comment on above: Result Comment: mL/m in/1.73m2 CKD-EPI Creatinine Equation (2020) Performed By: #### L 501.5200, L100.0100, L500.2500, L501.9520 ####[facility] [address] [place], [address] Glucose [Mass/Vol] 101 mg/dL High 70-99 [facility] Comment on above: Performed By: #### L 501.5200, L100.0100, L500.2500, L501.9520 ####[facility] [address] [place], [address] Potassium [Moles/Vol] 4.7 mmol/L Normal 3.3-5.1 [facility] Comment on above: Performed By: #### L 501.5200, L100.0100, L500.2500, L501.9520 ####[facility] [address] [place], [address] Sodium [Moles/Vol] 138 mmol/L Normal 133-145 [facility] Comment on above: Performed By: #### L 501.5200, L100.0100, L500.2500, L501.9520 ####[facility] [address] [place], [address] Urea nitrogen [Mass/Vol] 21 mg/dL High 4-19 [facility] Comment on above: Performed By: #### L 501.5200, L100.0100, L500.2500, L501.9520 ####[facility] [address] [place], [address] Basophil percentageOrdered B y: Gini Couch on 08-14-2024 Basophils/100 WBC (Bld) 0.4 % 0-1 [facility] CBC W/Diff, Automatedon 06 Absolute Lymph 1.02 X10 3/uL Normal 0.83-4.51 [facility] Comment on above: Performed By: #### L 501.5200, L100.0100, L500.2500, L501.9520 ####[facility] [address] [place], [address] Absolute Neut 3.6 X10 3/uL Normal 2.0-7.7 [facility] Comment on above: Performed By: #### L 501.5200, L100.0100, L500.2500, L501.9520 ####[facility] [address] [place], [address] Basophils/100 WBC (Bld) 0.4 % Normal 0-1 [facility] Comment on above: Performed By: #### L 501.5200, L100.0100, L500.2500, L501.9520 ####[facility] [address] [place], [address] Eosinophils/100 WBC (Bld) 2.2 % Normal 0-5 [facility] Comment on above: Performed By: #### L 501.5200, L100.0100, L500.2500, L501.9520 ####[facility] [address] [place], [address] Erythrocyte distribution width (RBC) [Ratio] 16.6 % High 11.6-14.6 [facility] Comment on above: Performed By: #### L 501.5200, L100.0100, L500.2500, L501.9520 ####[facility] [address] [place], [address] Hematocrit (Bld) [Volume fraction] 41.7 % Normal 40-54 [facility] Comment on above: Performed By: #### L 501.5200, L100.0100, L500.2500, L501.9520 ####[facility] [address] [place], [address] Hemoglobin (Bld) [Mass/Vol] 13.9 g/dL Normal 13.0-16.5 [facility] Comment on above: Performed By: #### L 501.5200, L100.0100, L500.2500, L501.9520 ####[facility] [address] [place], [address] IG% 0.200 Normal 0.0-0.9 [facility] Comment on above: Result Comment: IG% - Immature Granulocytes (promyelocytes, myelocytes and metamyelocytes) > 1% indicates that a LEFT SHIFT is Present. Performed By: #### L 501.5200, L100.0100, L500.2500, L501.9520 ####[facility] [address] [place], [address] Lymphocytes/100 WBC (Bld) 18.9 % Low 19-41 [facility] Comment on above: Performed By: #### L 501.5200, L100.0100, L500.2500, L501.9520 ####[facility] [address] [place], [address] MCH (RBC) [Entitic mass] 32.5 pg High 27.0-32.0 [facility] Comment on above: Performed By: #### L 501.5200, L100.0100, L500.2500, L501.9520 ####[facility] [address] [place], [address] MCHC (RBC) [Mass/Vol] 33.3 g/dL Normal 32-36 [facility] Comment on above: Performed By: #### L 501.5200, L100.0100, L500.2500, L501.9520 ####[facility] [address] [place], [address] MCV (RBC) [Entitic vol] 97.4 fL High 80-94 [facility] Comment on above: Performed By: #### L 501.5200, L100.0100, L500.2500, L501.9520 ####[facility] [address] [place], [address] Monocytes/100 WBC (Bld) 11.3 % High 0-10 [facility] Comment on above: Performed By: #### L 501.5200, L100.0100, L500.2500, L501.9520 ####[facility] [address] [place], [address] Neutrophils/100 WBC (Bld) 67.0 % Normal 47-70 [facility] Comment on above: Performed By: #### L 501.5200, L100.0100, L500.2500, L501.9520 ####[facility] [address] [place], [address] Nucleated RBC (Bld) [#/Vol] 0 10*3/uL Normal 0-5 [facility] Comment on above: Performed By: #### L 501.5200, L100.0100, L500.2500, L501.9520 ####[facility] [address] [place], [address] Platelet mean volume (Bld) [Entitic vol] 10.4 fL Normal 6.2-12.0 [facility] Comment on above: Performed By: #### L 501.5200, L100.0100, L500.2500, L501.9520 ####[facility] [address] [place], [address] Platelets (Bld) [#/Vol] 209 10*3/uL Normal 150-450 [facility] Comment on above: Performed By: #### L 501.5200, L100.0100, L500.2500, L501.9520 ####[facility] [address] [place], [address] RBC (Bld) [#/Vol] 4.28 10*6/uL Low 4.6-6.2 [facility] Comment on above: Performed By: #### L 501.5200, L100.0100, L500.2500, L501.9520 ####[facility] [address] [place], [address] RDW SD 59.1 fl High 35.1-43.9 [facility] Comment on above: Performed By: #### L 501.5200, L100.0100, L500.2500, L501.9520 ####[facility] [address] [place], [address] WBC (Bld) [#/Vol] 5.4 10*3/uL Normal 4.4-11.0 [facility] Comment on above: Performed By: #### L 501.5200, L100.0100, L500.2500, L501.9520 ####[facility] [address] [place], [address] Carbon dioxide, total [Moles /volume] in Central venous bloodOrdered By: Gini Couch on 08-14-2024 CO2 [Moles/Vol] 26.2 mmol/L 21.0-32.0 [facility] Cardiology Visit Reporton Cardiology Visit Report [facility] [address] [place] [address] OFFICE VISIT Date of Service: 08/14/24 MR#: [id number] Acct: [id number] Name: YEFRI YANEZ Rep #: [id number] : 1965 Provider: JARVIS campos Age/Sex: 59/M Location: [facility] Status: Signed HPI HPI History [...] the care of the oncologist here at [facility]. He had presented to the hospital [...] he had a DC cardioversion at [facility] in September 2021. He had previously been seeing a rouge presser in the [facility]. During this admission to the hospital in May 2022 his medications were optimized he was diuresed his creatinine actually improved and he was subsequently discharged to find a 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 Normal [facility] Chloride assayOrdered By: Eduardo Couch on 08-14-2024 Chloride [Moles/Vol] 102 mmol/L 98-108 [facility] Eosinophil percentageOrdered By: Gini Couch on 08-14-2024 Eosinophils/100 WBC (Bld) 2.2 % 0-5 [facility] Erythrocyte distribution wid th ratioOrdered By: Gini Couch on 08-14-2024 Erythrocyte distribution width (RBC) [Ratio] 16.6 % High 11.6-14.6 [facility] Erythrocyte distribution wid th standard deviationOrdered By: Gini Couch on 08-14-2024 Erythrocyte distribution width (RBC) [Ratio] 59.1 fl High 35.1-43.9 [facility] Glomerular filtration rate ( GFR) estimation/1.73 sq m using serum, plasma, or whole bOrdered By: Gini Couch on 08-14-2024 GFR/1.73 sq M.predicted among non-blacks MDRD (S/P/Bld) [Vol rate/Area] 33 mL/min/{1.73_m2} Low >60 [facility] Comment on above: mL/min/1.73m2 CKD-EP I Creatinine Equation (2020) Hematocrit Auto (Bld) [Volum e fraction]Ordered By: Gini Couch on 08-14-2024 Hematocrit (Bld) [Volume fraction] 41.7 % 40-54 [facility] Hemoglobin measurementOrdere d By: Gini Couch on 08-14-2024 Hemoglobin (Bld) [Mass/Vol] 13.9 g/dL 13.0-16.5 [facility] Immature granulocytes/100 WB C Auto (Bld)Ordered By: Gini Couch on 08-14-2024 Immature granulocytes/100 WBC (Bld) 0.200 % 0.0-0.9 [facility] Comment on above: IG% - Immature Granu locytes (promyelocytes, myelocytes and metamyelocytes) > 1% indicates that a LEFT SHIFT is Present. MCV (mean corpuscular volume ) determinationOrdered By: Gini Couch on 08-14-2024 MCV (RBC) [Entitic vol] 97.4 fL High 80-94 [facility] Magnesiumon 08-14-2024 Magnesium [Mass/Vol] 2.3 mg/dL High 1.5-2.2 [facility] Comment on above: Performed By: #### L 501.5200, L100.0100, L500.2500, L501.9520 ####[facility] [id number] [place], [place], [id number] Magnesium measurement (mass/ volume)Ordered By: Gini Couch on 08-14-2024 Magnesium (Unsp spec) [Mass/Vol] 2.3 mg/dL High 1.5-2.2 [facility] Mean corpuscular hemoglobin (MCH) determinationOrdered By: Gini Couch on 08-14-2024 MCH (RBC) [Entitic mass] 32.5 pg High 27.0-32.0 [facility] Mean corpuscular hemoglobin concentration (MCHC) determinationOrdered By: Gini Couch on 08-14-2024 MCHC (RBC) [Mass/Vol] 33.3 g/dL 32-36 [facility] Mean platelet volume determi nationOrdered By: Gini Couch on 08-14-2024 Platelet mean volume (Bld) [Entitic vol] 10.4 fL 6.2-12.0 [facility] Monocyte percentageOrdered B y: Gini Couch on 08-14-2024 Monocytes/100 WBC (Bld) 11.3 % High 0-10 [facility] Neutrophil percentageOrdered By: Gini Couch on 08-14-2024 Neutrophils/100 WBC (Bld) 67.0 % 47-70 [facility] Nucleated red blood cell per centageOrdered By: Gini Couch on 08-14-2024 Nucleated RBC/100 WBC (Bld) [Ratio] 0 % 0-5 [facility] Platelet countOrdered By: Eduardo Couch on 08-14-2024 Platelets (Bld) [#/Vol] 209 10*3/uL 150-450 [facility] Potassium measurement (mass/ volume)Ordered By: Gini Couch on 08-14-2024 Potassium (Unsp spec) [Mass/Vol] 4.7 mmol/L 3.3-5.1 [facility] RBC Auto (Bld) [#/Vol]Ordere d By: Gini Couch on 08-14-2024 RBC (Bld) [#/Vol] 4.28 10*6/uL Low 4.6-6.2 [facility] Serum creatinine measurement (mass/volume)Ordered By: Gini Couch on 08-14-2024 Creatinine [Mass/Vol] 2.22 mg/dL High 0.70-1.20 [facility] Serum glucose measurement (m ass/volume)Ordered By: Gini Couch on 08-14-2024 Glucose [Mass/Vol] 101 mg/dL High 70-99 [facility] Serum or plasma calcium cory urement (mass/volume)Ordered By: Gini Couch on 08-14-2024 Calcium [Mass/Vol] 9.5 mg/dL 7.6-11.0 [facility] Serum or plasma urea nitroge n measurement (mass/volume)Ordered By: Gini Couch on 08-14-2024 Urea nitrogen [Mass/Vol] 21 mg/dL High 4-19 [facility] Sodium levelOrdered By: Mercedes Couch on 08-14-2024 Sodium [Moles/Vol] 138 mmol/L 133-145 [facility] TSH DL <= 0.005 mIU/L QnOrde red By: Gini Couch on 08-14-2024 TSH Qn 1.940 uIU/mL 0.300-4.20 0 [facility] Thyroid Stim Hormone (TSH)on 08-14-2024 TSH 1.940 uIU/mL Normal 0.300-4.20 0 [facility] Comment on above: Performed By: #### L 501.5200, L100.0100, L500.2500, L501.9520 ####[facility] [id number] [place], [place], [id number] White blood cell (WBC) count Ordered By: Gini Couch on 08-14-2024 WBC (Bld) [#/Vol] 5.4 10*3/uL 4.4-11.0 [facility] Absolute lymphocyte countOrd ered By: Dangelo Botello on 06-20-2024 Lymphocytes Auto (Unsp spec) [#/Vol] 1.11 10*3/uL 0.83-4.51 [facility] Absolute neutrophil countOrd ered By: Dangelo Botello on 06-20-2024 Neutrophils (Bld) [#/Vol] 4.3 10*3/uL 2.0-7.7 [facility] Anion gap in Serum or Plasma Ordered By: Dangelo Botello on 06-20-2024 Anion gap [Moles/Vol] 10 mmol/L 5-15 [facility] Automated lymphocyte count a s percentage of total leukocytesOrdered By: Dangelo Botello on 04-15-2025 Lymphocytes/100 WBC Auto (Unsp spec) 18.8 % Low 19-41 [facility] BUN/creatinine ratioOrdered By: Dangelo Botello on 06-20-2024 Urea nitrogen/Creatinine [Mass ratio] 8.0 mg/mg Low 10-20 [facility] Basophil percentageOrdered B y: Dangelo Botello on 06-20-2024 Basophils/100 WBC (Bld) 0.3 % 0-1 [facility] Bilirubin, totalOrdered By: Dangelo Botello on 06-20-2024 Bilirubin [Mass/Vol] 0.39 mg/dL 0.00-1.30 [facility] CBC W/Diff, Automatedon 06-06-2024 Absolute Lymph 1.11 X10 3/uL Normal 0.83-4.51 [facility] Comment on above: Performed By: #### L 100.0100, L504.2610, L500.4050 #### [facility] [address] [place], [address] Absolute Neut 4.3 X10 3/uL Normal 2.0-7.7 [facility] Comment on above: Performed By: #### L 100.0100, L504.2610, L500.4050 #### [facility] [address] [place], [address] Basophils/100 WBC (Bld) 0.3 % Normal 0-1 [facility] Comment on above: Performed By: #### L 100.0100, L504.2610, L500.4050 #### [facility] [address] [place], [address] Eosinophils/100 WBC (Bld) 0.5 % Normal 0-5 [facility] Comment on above: Performed By: #### L 100.0100, L504.2610, L500.4050 #### [facility] [address] [place], [address] Erythrocyte distribution width (RBC) [Ratio] 17.2 % High 11.6-14.6 [facility] Comment on above: Performed By: #### L 100.0100, L504.2610, L500.4050 #### [facility] [address] [place], [address] Hematocrit (Bld) [Volume fraction] 41.0 % Normal 40-54 [facility] Comment on above: Performed By: #### L 100.0100, L504.2610, L500.4050 #### [facility] [address] [place], [address] Hemoglobin (Bld) [Mass/Vol] 13.8 g/dL Normal 13.0-16.5 [facility] Comment on above: Performed By: #### L 100.0100, L504.2610, L500.4050 #### [facility] [address] [place], [address] IG% 1.400 High 0.0-0.9 [facility] Comment on above: Result Comment: IG% - Immature Granulocytes (promyelocytes, myelocytes and metamyelocytes) > 1% indicates that a LEFT SHIFT is Present. Performed By: #### L 100.0100, L504.2610, L500.4050 #### [facility] [address] [place], [address] Lymphocytes/100 WBC (Bld) 18.8 % Low 19-41 [facility] Comment on above: Performed By: #### L 100.0100, L504.2610, L500.4050 #### [facility] [address] [place], [address] MCH (RBC) [Entitic mass] 33.3 pg High 27.0-32.0 [facility] Comment on above: Performed By: #### L 100.0100, L504.2610, L500.4050 #### [facility] [address] [place], [address] MCHC (RBC) [Mass/Vol] 33.7 g/dL Normal 32-36 [facility] Comment on above: Performed By: #### L 100.0100, L504.2610, L500.4050 #### [facility] [address] [place], [address] MCV (RBC) [Entitic vol] 99.0 fL High 80-94 [facility] Comment on above: Performed By: #### L 100.0100, L504.2610, L500.4050 #### [facility] [address] [place], [address] Monocytes/100 WBC (Bld) 6.9 % Normal 0-10 [facility] Comment on above: Performed By: #### L 100.0100, L504.2610, L500.4050 #### [facility] [address] [place], [address] Neutrophils/100 WBC (Bld) 72.1 % High 47-70 [facility] Comment on above: Performed By: #### L 100.0100, L504.2610, L500.4050 #### [facility] [address] [place], [address] Nucleated RBC (Bld) [#/Vol] 0 10*3/uL Normal 0-5 [facility] Comment on above: Performed By: #### L 100.0100, L504.2610, L500.4050 #### [facility] [address] [place], [address] Platelet mean volume (Bld) [Entitic vol] 10.8 fL Normal 6.2-12.0 [facility] Comment on above: Performed By: #### L 100.0100, L504.2610, L500.4050 #### [facility] [address] [place], [address] Platelets (Bld) [#/Vol] 233 10*3/uL Normal 150-450 [facility] Comment on above: Performed By: #### L 100.0100, L504.2610, L500.4050 #### [facility] [address] [place], [address] RBC (Bld) [#/Vol] 4.14 10*6/uL Low 4.6-6.2 [facility] Comment on above: Performed By: #### L 100.0100, L504.2610, L500.4050 #### [facility] [address] [place], [address] RDW SD 62.4 fl High 35.1-43.9 [facility] Comment on above: Performed By: #### L 100.0100, L504.2610, L500.4050 #### [facility] [address] [place], [address] WBC (Bld) [#/Vol] 5.9 10*3/uL Normal 4.4-11.0 [facility] Comment on above: Performed By: #### L 100.0100, L504.2610, L500.4050 #### [facility] [address] [place], [address] Carbon dioxide, total [Moles /volume] in Central venous bloodOrdered By: Dangelo Botello on 06-20-2024 CO2 [Moles/Vol] 26.0 mmol/L 21.0-32.0 [facility] Chloride assayOrdered By: Raeann Botello on 06-20-2024 Chloride [Moles/Vol] 100 mmol/L 98-108 [facility] Comprehensive Metabolic Prof ilon 06-20-2024 Albumin [Mass/Vol] 4.0 g/dL Normal 3.4-4.8 [facility] Comment on above: Performed By: #### L 100.0100, L504.2610, L500.4050 #### [facility] [address] [place], [address] Albumin/Globulin [Mass ratio] 1.4 {ratio} Normal 0.9-2.4 [facility] Comment on above: Performed By: #### L 100.0100, L504.2610, L500.4050 #### [facility] [address] [place], [address] ALK PHOS 47 U/L Normal 40-129 [facility] Comment on above: Performed By: #### L 100.0100, L504.2610, L500.4050 #### [facility] [address] [place], [address] ALT [Catalytic activity/Vol] 47 U/L Normal <=46 [facility] Comment on above: Performed By: #### L 100.0100, L504.2610, L500.4050 #### [facility] [address] [place], [address] AST [Catalytic activity/Vol] 37 U/L Normal <=37 [facility] Comment on above: Performed By: #### L 100.0100, L504.2610, L500.4050 #### [facility] [address] [place], [address] Bilirubin [Mass/Vol] 0.39 mg/dL Normal 0.00-1.30 [facility] Comment on above: Performed By: #### L 100.0100, L504.2610, L500.4050 #### [facility] [address] [place], [address] BUN/CRE 8.0 RATIO Low 10-20 [facility] Comment on above: Performed By: #### L 100.0100, L504.2610, L500.4050 #### [facility] [address] [place], [address] Calcium [Mass/Vol] 9.7 mg/dL Normal 7.6-11.0 [facility] Comment on above: Performed By: #### L 100.0100, L504.2610, L500.4050 #### [facility] [address] [place], [address] Chloride [Moles/Vol] 100 mmol/L Normal 98-108 [facility] Comment on above: Performed By: #### L 100.0100, L504.2610, L500.4050 #### [facility] [address] [place], [address] CO2 [Moles/Vol] 26.0 mmol/L Normal 21.0-32.0 [facility] Comment on above: Performed By: #### L 100.0100, L504.2610, L500.4050 #### [facility] [address] [place], [address] Creatinine [Mass/Vol] 1.89 mg/dL High 0.70-1.20 [facility] Comment on above: Performed By: #### L 100.0100, L504.2610, L500.4050 #### [facility] [address] [place], [address] GAP 10 Normal 5-15 [facility] Comment on above: Performed By: #### L 100.0100, L504.2610, L500.4050 #### [facility] [address] [place], [address] GFR/1.73 sq M.predicted among non-blacks MDRD (S/P/Bld) [Vol rate/Area] 40 mL/min/{1.73_m2} Low >60 [facility] Comment on above: Result Comment: mL/m in/1.73m2 CKD-EPI Creatinine Equation (2020) Performed By: #### L 100.0100, L504.2610, L500.4050 #### [facility] [address] [place], [address] Globulin (S) [Mass/Vol] 2.8 g/dL Normal 2.2-4.2 [facility] Comment on above: Performed By: #### L 100.0100, L504.2610, L500.4050 #### [facility] [address] [place], [address] Glucose [Mass/Vol] 97 mg/dL Normal 70-99 [facility] Comment on above: Performed By: #### L 100.0100, L504.2610, L500.4050 #### [facility] [address] [place], [address] Potassium [Moles/Vol] 4.5 mmol/L Normal 3.3-5.1 [facility] Comment on above: Performed By: #### L 100.0100, L504.2610, L500.4050 #### [facility] [address] [place], [address] Sodium [Moles/Vol] 136 mmol/L Normal 133-145 [facility] Comment on above: Performed By: #### L 100.0100, L504.2610, L500.4050 #### [facility] [address] [place], [address] T PROT 6.7 g/dL Normal 5.9-8.4 [facility] Comment on above: Performed By: #### L 100.0100, L504.2610, L500.4050 #### [facility] [address] [place], [address] Urea nitrogen [Mass/Vol] 15 mg/dL Normal 4-19 [facility] Comment on above: Performed By: #### L 100.0100, L504.2610, L500.4050 #### [facility] [address] [place], [address] Eosinophil percentageOrdered By: Dangelo Botello on 06-20-2024 Eosinophils/100 WBC (Bld) 0.5 % 0-5 [facility] Erythrocyte distribution wid th (RBC) [Ratio]Ordered By: Dangelo Botello on 06-20-2024 Erythrocyte distribution width (RBC) [Entitic vol] 62.4 fL High 35.1-43.9 [facility] Erythrocyte distribution wid th ratioOrdered By: Dangelo Botello on 06-20-2024 Erythrocyte distribution width (RBC) [Ratio] 17.2 % High 11.6-14.6 [facility] Erythrocyte distribution wid th standard deviationOrdered By: Dangelo Botello on 06-20-2024 Erythrocyte distribution width (RBC) [Ratio] 62.4 fl High 35.1-43.9 [facility] GFR/1.73 sq M.predicted martin g non-blacks MDRD (S/P/Bld) [Vol rate/Area]Ordered By: Dangelo Botello on 06-20-2024 Estimated GFR (MDRD) Non-Af Amer 40 Low >60 [facility] Comment on above: mL/min/1.73m2 CKD-EP I Creatinine Equation (2020) Glomerular filtration rate ( GFR) estimation/1.73 sq m using serum, plasma, or whole bOrdered By: Dangelo Botello on 06-20-2024 GFR/1.73 sq M.predicted among non-blacks MDRD (S/P/Bld) [Vol rate/Area] 40 mL/min/{1.73_m2} Low >60 [facility] Comment on above: mL/min/1.73m2 CKD-EP I Creatinine Equation (2020) Hematocrit Auto (Bld) [Volum e fraction]Ordered By: Dangelo Botello on 06-20-2024 Hematocrit (Bld) [Volume fraction] 41.0 % 40-54 [facility] Hemoglobin measurementOrdere d By: Dangelo Botello on 06-20-2024 Hemoglobin (Bld) [Mass/Vol] 13.8 g/dL 13.0-16.5 [facility] Immature granulocytes/100 WB C Auto (Bld)Ordered By: Dangelo Botello on 06-20-2024 Immature granulocytes/100 WBC (Bld) 1.400 % High 0.0-0.9 [facility] Comment on above: IG% - Immature Granu locytes (promyelocytes, myelocytes and metamyelocytes) > 1% indicates that a LEFT SHIFT is Present. LDHon 06-20-2024 LDH 249 U/L High 87-241 [facility] Comment on above: Order Comment: 1 Performed By: #### L 100.0100, L504.2610, L500.4050 #### [facility] [address] [place], [address] Laboratory - Chemistry and C hemistry - challengeOrdered By: Dangelo Botello on 06-20-2024 AST [Catalytic activity/Vol] 37 U/L <38 [facility] Lactate dehydrogenase (LDH) measurementOrdered By: Dangelo Botello on 06-20-2024 LDH [Catalytic activity/Vol] 249 U/L High 87-241 [facility] Lymphocytes Auto (Unsp spec) [#/Vol]Ordered By: Dangelo Botello on 06-20-2024 Lymphocytes (Bld) [#/Vol] 1.11 10*3/uL 0.83-4.51 [facility] Lymphocytes/100 WBC Auto (Un sp spec)Ordered By: Dangelo Botello on 06-20-2024 Lymphocytes/100 WBC (Bld) 18.8 % Low 19-41 [facility] MCV (mean corpuscular volume ) determinationOrdered By: Dangelo Botello on 06-20-2024 MCV (RBC) [Entitic vol] 99.0 fL High 80-94 [facility] Mean corpuscular hemoglobin (MCH) determinationOrdered By: Dangelo Botello on 06-20-2024 MCH (RBC) [Entitic mass] 33.3 pg High 27.0-32.0 [facility] Mean corpuscular hemoglobin concentration (MCHC) determinationOrdered By: Dangelo Botello on 06-20-2024 MCHC (RBC) [Mass/Vol] 33.7 g/dL 32-36 [facility] Mean platelet volume determi nationOrdered By: Dangelo Botello on 06-20-2024 Platelet mean volume (Bld) [Entitic vol] 10.8 fL 6.2-12.0 [facility] Monocyte percentageOrdered B y: Dangelo Botello on 06-20-2024 Monocytes/100 WBC (Bld) 6.9 % 0-10 [facility] Neutrophil percentageOrdered By: Dangelo Botello on 06-20-2024 Neutrophils/100 WBC (Bld) 72.1 % High 47-70 [facility] Nucleated red blood cell per centageOrdered By: Dangelo Botello on 06-20-2024 Nucleated RBC/100 WBC (Bld) [Ratio] 0 % 0-5 [facility] Oncology Visit Reporton 06-06 Oncology Visit Report [facility] [address] [place] [address] OFFICE VISIT Date of Service: 06/20/24 1334 MR#: [id number] Acct: [id number] Name: YEFRI YANEZ Rep #: [id number] : 1965 From: Dangelo Botello MD Age/Sex: 59/M Location: [facility] Status: Signed HPI Subjective Date of Service [...] for follow up after CT. Feeling well [facility] Medical History Abnormal chest x-ray Warfarin-induced coagulopathy Chronic a-fib Atrial fibrillation CKD (chronic kidney disease) CKD (chronic kidney disease), stage III Systolic CHF Tobacco use NMICO on CPAP Metastatic renal cell carcinoma to [...] Rx spiron (more content not included)... Normal [facility] Platelet countOrdered By: Raeann Botello on 06-20-2024 Platelets (Bld) [#/Vol] 233 10*3/uL 150-450 [facility] Potassium (Unsp spec) [Mass/ Vol]Ordered By: Dangelo Botello on 06-20-2024 Potassium [Moles/Vol] 4.5 mmol/L 3.3-5.1 [facility] Potassium measurement (mass/ volume)Ordered By: Dangelo Botello on 06-20-2024 Potassium (Unsp spec) [Mass/Vol] 4.5 mmol/L 3.3-5.1 [facility] RBC Auto (Bld) [#/Vol]Ordere d By: Dangelo Botello on 06-20-2024 RBC (Bld) [#/Vol] 4.14 10*6/uL Low 4.6-6.2 [facility] Serum creatinine measurement (mass/volume)Ordered By: Dangelo oBtello on 06-20-2024 Creatinine [Mass/Vol] 1.89 mg/dL High 0.70-1.20 [facility] Serum globulin measurementOr dered By: Dangelo Botello on 06-20-2024 Globulin (S) [Mass/Vol] 2.8 g/dL 2.2-4.2 [facility] Serum glucose measurement (m ass/volume)Ordered By: Dangelo Botello on 06-20-2024 Glucose [Mass/Vol] 97 mg/dL 70-99 [facility] Serum or plasma alanine stafford otransferase (ALT) measurementOrdered By: Dangelo Botello on 06-20-2024 ALT [Catalytic activity/Vol] 47 U/L <47 [facility] Serum or plasma albumin cory urement (mass/volume)Ordered By: Dangelo Botello on 06-20-2024 Albumin [Mass/Vol] 4.0 g/dL 3.4-4.8 [facility] Serum or plasma albumin/glob ulin mass ratioOrdered By: Dangelo Botello on 06-20-2024 Albumin/Globulin [Mass ratio] 1.4 {ratio} 0.9-2.4 [facility] Serum or plasma alkaline damaso sphatase measurementOrdered By: Dangelo Botello on 06-20-2024 ALP [Catalytic activity/Vol] 47 U/L 40-129 [facility] Serum or plasma calcium cory urement (mass/volume)Ordered By: Dangelo Botello on 06-20-2024 Calcium [Mass/Vol] 9.7 mg/dL 7.6-11.0 [facility] Serum or plasma urea nitroge n measurement (mass/volume)Ordered By: Dangelo Botello on 06-20-2024 Urea nitrogen [Mass/Vol] 15 mg/dL 4-19 [facility] Sodium levelOrdered By: Bruno Botello on 06-20-2024 Sodium [Moles/Vol] 136 mmol/L 133-145 [facility] Total proteinOrdered By: Jose Botello on 06-20-2024 Protein [Mass/Vol] 6.7 g/dL 5.9-8.4 [facility] White blood cell (WBC) count Ordered By: Dangelo Botello on 06-20-2024 WBC (Bld) [#/Vol] 5.9 10*3/uL 4.4-11.0 [facility] CREATININE FINGERSTICKon CREATININE WB < 1.0 Normal 0.70-1.30 [facility] Comment on above: Performed By: #### L 9100.0200 ####[facility] [id number] [place], [address] EGFR WB > 60.0000 Normal >60 [facility] Comment on above: Performed By: #### L 9100.0200 ####[facility] [id number] [place], [address] CT Chest, Abd, Pel w/Contras ton 06-13-2024 CT Chest, Abd, Pel w/Contrast [facility] Imaging Services [address] [place], [place] [address] CT Chest, Abd, Pel w/Contrast MR#: [id number] Acct: [id number] Name: YEFRI YANEZ Rep #: [id number] : 1965 M 59 From: Carla Garcia MD PCP: Dr. Daksha Turner MD Status: [facility] CL Study: CT Chest, Abd, Pel w/Contrast Date of Exam: Exam# [id number] Ordering Dr: Dangelo Botello MD PROCEDURE: CT [...] cm. *Status post right-sided nephrectomy. Reading Location: [id number] CC: Dr. Daksha Turner MD; Dr. 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: Signed Normal [facility] Creatinine measurement at be dsideOrdered By: Dangelo Botello on 06-13-2024 Bedside Creatinine < 1.0 mg/dL 0.70-1.30 [facility] EGFROrdered By: Dangelo Botello on 06-13-2024 Bedside Estimated GFR (eGFR) > 60.0000 mL/min >60 [facility] GFR/1.73 sq M.predicted among non-blacks MDRD (S/P/Bld) [Vol rate/Area] mL/min/{1.73_m2} >60 [facility] 09-HA-Uflomsu DOrdered By: Tangela Chiu on 03-22-2024 Vitamin D 25-Hydroxy 30.8 ng/mL [facility] Comment on above: Vitamin D 25(OH) Sta tus Range Deficiency <20 ng/mL (50nmol/L) Insufficiency 20 - 30 ng/mL (50 - 75 nmol/L) Sufficiency 30 - 100 ng/mL (75 - 250 nmol/L) Toxicity >100 ng/mL (>250 nmol/L) Blood urea nitrogen (BUN)/cr eatinine ratioOrdered By: Isidra Chiu on 03-22-2024 Urea nitrogen/Creatinine [Mass ratio] 10.8 mg/mg 10-20 [facility] Carbon dioxide measurementOr dered By: Isidra Chiu on 03-22-2024 CO2 [Moles/Vol] 26.0 mmol/L 21.0-32.0 [facility] Chloride measurementOrdered By: Isidra Chiu on 03-22-2024 Chloride [Moles/Vol] 107 mmol/L 98-107 [facility] Estimated glomerular filtrat ion rate (GFR) AmericanOrdered By: Isidra Chiu on 03-22-2024 Estimated GFR (MDRD) Amer 39 mL/min Low >60 [facility] Comment on above: GFR Calc Glomerular filtration rate ( GFR) estimationOrdered By: Isidra Chiu on 03-22-2024 Estimated GFR (MDRD) Non-Af Amer 32 mL/min Low >60 [facility] Comment on above: Non- GFR Calc Glucose measurementOrdered B y: Isidra Chiu on 03-22-2024 Glucose [Mass/Vol] 118 mg/dL High 74-106 [facility] Comment on above: Fasting Glucose resu lt from 100 to 125 mg/dL suggests IMPAIRED HOMEOSTASIS per A.D.A. criteria. Phosphorus measurementOrdere d By: Isidra Chiu on 03-22-2024 Phosphorus Level 2.6 mg/dL 2.5-4.9 [facility] Potassium measurementOrdered By: Isidra Chiu on 03-22-2024 Potassium [Moles/Vol] 4.3 mmol/L 3.5-5.1 [facility] Renal Profileon 03-22-2024 Albumin [Mass/Vol] 3.1 g/dL Low 3.2-5.0 [facility] Comment on above: Performed By: #### L 100.0100, L504.2610, L500.4050 #### [facility] [address] [place], [address] BUN/CRE 10.8 RATIO Normal 10-20 [facility] Comment on above: Performed By: #### L 100.0100, L504.2610, L500.4050 #### [facility] [address] [place], [address] CA,Total 8.3 mg/dL Low 8.5-10.1 [facility] Comment on above: Performed By: #### L 100.0100, L504.2610, L500.4050 #### [facility] [address] [place], [address] Chloride [Moles/Vol] 107 mmol/L Normal 98-107 [facility] Comment on above: Performed By: #### L 100.0100, L504.2610, L500.4050 #### [facility] [address] [place], [address] CO2 [Moles/Vol] 26.0 mmol/L Normal 21.0-32.0 [facility] Comment on above: Performed By: #### L 100.0100, L504.2610, L500.4050 #### [facility] [address] [place], [address] Creatinine [Mass/Vol] 2.22 mg/dL High 0.70-1.30 [facility] Comment on above: Result Comment: The validity of the calculated GFR GFRAA in patients over 70 years has not been determined. Clinical correlation is essential. Performed By: #### L 100.0100, L504.2610, L500.4050 #### [facility] [address] [place], [address] EST GFR - AA 39 mL/min Low >60 [facility] Comment on above: Result Comment: Afri can [place] GFR Calc Performed By: #### L 100.0100, L504.2610, L500.4050 #### [facility] [address] [place], [address] GFR/1.73 sq M.predicted among non-blacks MDRD (S/P/Bld) [Vol rate/Area] 32 mL/min/{1.73_m2} Low >60 [facility] Comment on above: Result Comment: Non- GFR Calc Performed By: #### L 100.0100, L504.2610, L500.4050 #### [facility] [address] [place], [address] Glucose [Mass/Vol] 118 mg/dL High 74-106 [facility] Comment on above: Result Comment: Fast ing Glucose result from 100 to 125 mg/dL suggests IMPAIRED HOMEOSTASIS per A.D.A. criteria. Performed By: #### L 100.0100, L504.2610, L500.4050 #### [facility] [address] [place], [address] Phosphate [Mass/Vol] 2.6 mg/dL Normal 2.5-4.9 [facility] Comment on above: Performed By: #### L 100.0100, L504.2610, L500.4050 #### [facility] [address] [place], [address] Potassium [Moles/Vol] 4.3 mmol/L Normal 3.5-5.1 [facility] Comment on above: Performed By: #### L 100.0100, L504.2610, L500.4050 #### [facility] [address] [place], [address] Sodium [Moles/Vol] 138 mmol/L Normal 136-145 [facility] Comment on above: Performed By: #### L 100.0100, L504.2610, L500.4050 #### [facility] [address] [place], [address] Urea nitrogen [Mass/Vol] 24 mg/dL High - [facility] Comment on above: Performed By: #### L 100.0100, L504.2610, L500.4050 #### [facility] [address] [place], [address] Serum or plasma albumin cory urement (mass/volume)Ordered By: Isidra Chiu on 03-22-2024 Albumin [Mass/Vol] 3.1 g/dL Low 3.2-5.0 [facility] Serum or plasma calcium cory urement (mass/volume)Ordered By: Isidra Chiu on 03-22-2024 Calcium [Mass/Vol] 8.3 mg/dL Low 8.5-10.1 [facility] Serum or plasma creatinine m easurement (mass/volume)Ordered By: Isidra Chiu on 03-22-2024 Creatinine [Mass/Vol] 2.22 mg/dL High 0.70-1.30 [facility] Comment on above: The validity of the calculated GFR & GFRAA in patients over 70 years has not been determined. Clinical correlation is essential. Serum or plasma urea nitroge n measurement (mass/volume)Ordered By: Isidra Chiu on 03-22-2024 Urea nitrogen [Mass/Vol] 24 mg/dL High 09-22 [facility] Sodium levelOrdered By: Shawna Chiu on 03-22-2024 Sodium [Moles/Vol] 138 mmol/L 136-145 [facility] Vitamin D,25 Hydroxyon 03-22 Vitamin D 25-OH 30.8 ng/mL Normal [facility] Comment on above: Result Comment: Constanza min D 25(OH) Status Range Deficiency <20 ng/mL (50nmol/L) Insufficiency 20 - 30 ng/mL (50 - 75 nmol/L) Sufficiency 30 - 100 ng/mL (75 - 250 nmol/L) Toxicity >100 ng/mL (>250 nmol/L) Performed By: #### L 100.0100, L504.2610, L500.4050 #### [facility] [address] [facility] [place], [address] Lung Screeningon 02-08-[address] Lung Screening [facility] Imaging Services [address] [place] [address] Lung Screening MR#: [id number] Acct: [id number] Name: YEFRI YANEZ Rep #: [id number] : 1965 M 59 From: Rony amador MD PCP: Dr. Daksha Turner MD Status: [facility] CLI Study: Low Dose CT Lung Screening Date of Exam: 02/07 Exam# [id number] Ordering Dr: Daksha uTrner [id number] STUDY: LOW DOSE CT LUNG CANCER SCREENING [...] additional features (more content not included)... Normal [facility] Sex Hormone-binding Globulin on 01-13-2024 SHBG 23.8 nmol/L Normal 19.3-76.4 [facility] Comment on above: Order Comment: PER P T-JUST ORDER FROM JOHNNY DATED FOR TODAYOrder Date: 01/11/24Order Info: [id number] - SEXHORM Result Comment: Perf ormed at: CB - [facility] [address] [id number] Siphoner: Elías Moreau PhD, Phone: [phone] Performed By: #### L 100.4521, W689.7262, S572.0501 #### [facility] [address] [facility] [place], [address] [employer] Decub and/or Erecton 01-11-2024 Abd Inc Decub and/or Erect [facility] Imaging Services [address] [place], [place] [address] [employer] Decub and/or Erect MR#: [id number] Acct: [id number] Name: YEFRI YANEZ Rep #: [id number] : 1965 M 59 From: Lul Peters MD PCP: Dr. 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 [place], [place], [address] LH 4.5 mIU/mL Normal [facility] Comment on above: Order Comment: CLEAN CATCH Result Comment: NORMAL REFERENCE RANGES FEMALE FOLLICULAR 1.9 - 26.2 mIU/mL MID-CYCLE PEAK 22.8 - 76.1 mIU/mL LUTEAL 0.6 - 16.6 mIU/mL POST-MENOPAUSAL ON MHT 1.1 - 52.4 mIU/mL NOT ON MHT 8.6 - 61.8 mIU/mL MALE 1.2 - 10.6 mIU/mL Performed By: #### L 400.0001 #### [facility] [address] [place], [place], [address] Testosterone, Serum Totalon 01-11-2024 Testosterone [Mass/Vol] 398.15 ng/dL Normal [facility] Comment on above: Order Comment: CLEAN CATCH Result Comment: CENT RAL 90% REFERENCE RANGES MALE AGE <50 197.44 - 669.58 ng/dL MALE AGE > or = 50 187.72 - 684.19 ng/dL FEMALE AGE <50 8.38 - 35.01 ng/dL FEMALE AGE > or = 50 <7.00 - 35.92 ng/dL Effective as of 10/01/20 Performed By: #### L 400.0001 #### [facility] [address] [place], [address] L5000.0012on 12-25-2023 Vitamin B12 Normal [facility] Comment on above: Result Comment: TEST RESULTS LIMITS Vitamin B12 291 pg/mL [phone] TESTING PERFORMED AT [facility]. ORIGINAL REPORT ON FILE IN LAB CONTAINS ADDITIONAL TEST SITE INFORMATION. Performed By: #### L 100.0100, L504.2610, L500.4050 #### [facility] [address] [place], [address] CBC-Complete Blood Cnt No Di ffon 12-22-2023 Erythrocyte distribution width (RBC) [Ratio] 16.7 % High 11.6-14.6 [facility] Comment on above: Order Comment: Order Date: 11/29/23Order Info: [id number] - CBC Performed By: #### L 503.6150, L500.4100, L100.0500, L500.4050, L503.6550 ####[facility] [address] [place], [address] Hematocrit (Bld) [Volume fraction] 43.7 % Normal 40-54 [facility] Comment on above: Order Comment: Order Date: 11/29/23Order Info: [id number] - CBC Performed By: #### L 503.6150, L500.4100, L100.0500, L500.4050, L503.6550 ####[facility] [address] [place], [address] Hemoglobin (Bld) [Mass/Vol] 14.8 g/dL Normal 13.0-16.5 [facility] Comment on above: Order Comment: Order Date: 11/29/23Order Info: [id number] - CBC Performed By: #### L 503.6150, L500.4100, L100.0500, L500.4050, L503.6550 ####[facility] [address] [place], [address] MCH (RBC) [Entitic mass] 34.1 pg High 27.0-32.0 [facility] Comment on above: Order Comment: Order Date: 11/29/23Order Info: [id number] - CBC Performed By: #### L 503.6150, L500.4100, L100.0500, L500.4050, L503.6550 ####[facility] [address] [place], [address] MCHC (RBC) [Mass/Vol] 33.9 g/dL Normal 32-36 [facility] Comment on above: Order Comment: Order Date: 11/29/23Order Info: [id number] - CBC Performed By: #### L 503.6150, L500.4100, L100.0500, L500.4050, L503.6550 ####[facility] [address] [place], [address] MCV (RBC) [Entitic vol] 100.7 fL High 80-94 [facility] Comment on above: Order Comment: Order Date: 11/29/23Order Info: [id number] - CBC Performed By: #### L 503.6150, L500.4100, L100.0500, L500.4050, L503.6550 ####[facility] [address] [place], [address] Platelet mean volume (Bld) [Entitic vol] 11.4 fL Normal 6.2-12.0 [facility] Comment on above: Order Comment: Order Date: 11/29/23Order Info: [id number] - CBC Performed By: #### L 503.6150, L500.4100, L100.0500, L500.4050, L503.6550 ####[facility] [address] [place], [address] Platelets (Bld) [#/Vol] 219 10*3/uL Normal 150-450 [facility] Comment on above: Order Comment: Order Date: 11/29/23Order Info: [id number] - CBC Performed By: #### L 503.6150, L500.4100, L100.0500, L500.4050, L503.6550 ####[facility] [address] [place], [place], [address] RBC (Bld) [#/Vol] 4.34 10*6/uL Low 4.6-6.2 [facility] Comment on above: Order Comment: Order Date: 11/29/23Order Info: [id number] - CBC Performed By: #### L 503.6150, L500.4100, L100.0500, L500.4050, L503.6550 ####[facility] [address] [place], [place], [address] RDW SD 62.4 fl High 35.1-43.9 [facility] Comment on above: Order Comment: Order Date: 11/29/23Order Info: [id number] - CBC Performed By: #### L 503.6150, L500.4100, L100.0500, L500.4050, L503.6550 ####[facility] [address] [place], [address] WBC (Bld) [#/Vol] 7.6 10*3/uL Normal 4.4-11.0 [facility] Comment on above: Order Comment: Order Date: 11/29/23Order Info: [id number] - CBC Performed By: #### L 503.6150, L500.4100, L100.0500, L500.4050, L503.6550 ####[facility] [address] [place], [place], [address] Comprehensive [facility] 12-22-2023 Albumin [Mass/Vol] 3.2 g/dL Normal 3.2-5.0 [facility] Comment on above: Order Comment: Order Date: 11/29/23Order Info: [id number] - CMPOrder Info: [id number] - LIPIDOrder Info: [id number] - FEOrder Info: [id number] - MARTIN Performed By: #### L 503.6150, L500.4100, L100.0500, L500.4050, L503.6550 ####[facility] [address] [place], [address] Albumin/Globulin [Mass ratio] 0.9 {ratio} Normal 0.9-2.4 [facility] Comment on above: Order Comment: Order Date: 11/29/23Order Info: [id number] - CMPOrder Info: [id number] - LIPIDOrder Info: [id number] - FEOrder Info: 4 - MARTIN Performed By: #### L 503.6150, L500.4100, L100.0500, L500.4050, L503.6550 ####[facility] [address] [place], [address] ALK P 64 U/L Normal 45-117 [facility] Comment on above: Order Comment: Order Date: 11/29/23Order Info: [id number] - CMPOrder Info: [id number] - LIPIDOrder Info: [id number] - FEOrder Info: [id number] - MARTIN Performed By: #### L 503.6150, L500.4100, L100.0500, L500.4050, L503.6550 ####[facility] [address] [place], [address] ALT [Catalytic activity/Vol] 48 U/L Normal 16-61 [facility] Comment on above: Order Comment: Order Date: 11/29/23Order Info: 07-1 - CMPOrder Info: [id number] - LIPIDOrder Info: [id number] - FEOrder Info: [id number] - MARTIN Performed By: #### L 503.6150, L500.4100, L100.0500, L500.4050, L503.6550 ####[facility] [address] [place], [address] AST [Catalytic activity/Vol] 37 U/L Normal 15-37 [facility] Comment on above: Order Comment: Order Date: 11/29/23Order Info: [id number] - CMPOrder Info: [id number] - LIPIDOrder Info: [id number] - FEOrder Info: [id number] - MARTIN Performed By: #### L 503.6150, L500.4100, L100.0500, L500.4050, L503.6550 ####[facility] [address] [place], [address] Bilirubin [Mass/Vol] 0.50 mg/dL Normal 0.20-1.00 [facility] Comment on above: Order Comment: Order Date: 11/29/23Order Info: 785- - CMPOrder Info: [id number] - LIPIDOrder Info: [id number] - FEOrder Info: [id number] - MARTIN Result Comment: For patients on eltrombopag therapy, use of Dimension [place] TBIL is not recommended. Performed By: #### L 503.6150, L500.4100, L100.0500, L500.4050, L503.6550 ####[facility] [address] [place], [place], [phone] BUN/CRE 10.2 RATIO Normal 10-20 [facility] Comment on above: Order Comment: Order Date: 11/29/23Order Info: [id number] - CMPOrder Info: - LIPIDOrder Info: [id number] - FEOrder Info: [id number] - MARTIN Performed By: #### L 503.6150, L500.4100, L100.0500, L500.4050, L503.6550 ####[facility] [address] [place], [address] CA,Total 9.0 mg/dL Normal 8.5-10.1 [facility] Comment on above: Order Comment: Order Date: 11/29/23Order Info: [id number] - CMPOrder Info: [id number] - LIPIDOrder Info: [id number] - FEOrder Info: [id number] - MARTIN Performed By: #### L 503.6150, L500.4100, L100.0500, L500.4050, L503.6550 ####[facility] [address] [place], [address] Chloride [Moles/Vol] 106 mmol/L Normal 98-107 [facility] Comment on above: Order Comment: Order Date: 11/29/23Order Info: [id number] - CMPOrder Info: [id number] - LIPIDOrder Info: [id number] - FEOrder Info: [id number] - MARTIN Performed By: #### L 503.6150, L500.4100, L100.0500, L500.4050, L503.6550 ####[facility] [address] [place], [address] CO2 [Moles/Vol] 25.0 mmol/L Normal 21.0-32.0 [facility] Comment on above: Order Comment: Order Date: 11/29/23Order Info: 785- - CMPOrder Info: [id number] - LIPIDOrder Info: [id number] - FEOrder Info: [id number] - MARTIN Performed By: #### L 503.6150, L500.4100, L100.0500, L500.4050, L503.6550 ####[facility] [address] [place], [address] Creatinine [Mass/Vol] 1.86 mg/dL High 0.70-1.30 [facility] Comment on above: Order Comment: Order Date: 11/29/23Order Info: [id number] - CMPOrder Info: [id number] - LIPIDOrder Info: [id number] - FEOrder Info: [id number] - MARTIN Result Comment: The validity of the calculated GFR GFRAA in patients over 70 years has not been determined. Clinical correlation is essential. Performed By: #### L 503.6150, L500.4100, L100.0500, L500.4050, L503.6550 ####[facility] [address] [place], [address] EST GFR - AA 48 mL/min Low >60 [facility] Comment on above: Order Comment: Order Date: 11/29/23Order Info: 07-1 - CMPOrder Info: [id number] - LIPIDOrder Info: [id number] - FEOrder Info: [id number] - MARTIN Result Comment: Afri can [place] GFR Calc Performed By: #### L 503.6150, L500.4100, L100.0500, L500.4050, L503.6550 ####[facility] [address] [place], [address] GAP 7 Normal 5-15 [facility] Comment on above: Order Comment: Order Date: 11/29/23Order Info: [id number] - CMPOrder Info: - LIPIDOrder Info: [id number] - FEOrder Info: [id number] - MARTIN Performed By: #### L 503.6150, L500.4100, L100.0500, L500.4050, L503.6550 ####[facility] [address] [place], [address] GFR/1.73 sq M.predicted among non-blacks MDRD (S/P/Bld) [Vol rate/Area] 40 mL/min/{1.73_m2} Low >60 [facility] Comment on above: Order Comment: Order Date: 11/29/23Order Info: [id number] - CMPOrder Info: [id number] - LIPIDOrder Info: [id number] - FEOrder Info: [id number] - MARTIN Result Comment: Non- GFR Calc Performed By: #### L 503.6150, L500.4100, L100.0500, L500.4050, L503.6550 ####[facility] [address] [place], [address] Globulin (S) [Mass/Vol] 3.4 g/dL Normal 2.2-4.2 [facility] Comment on above: Order Comment: Order Date: 11/29/23Order Info: 07- - CMPOrder Info: [id number] - LIPIDOrder Info: [id number] - FEOrder Info: [id number] - MARTIN Performed By: #### L 503.6150, L500.4100, L100.0500, L500.4050, L503.6550 ####[facility] [address] [place], [address] Glucose [Mass/Vol] 115 mg/dL High 74-106 [facility] Comment on above: Order Comment: Order Date: 11/29/23Order Info: 86-1 - CMPOrder Info: [id number] - LIPIDOrder Info: [id number] - FEOrder Info: [id number] - MARTIN Result Comment: Fast ing Glucose result from 100 to 125 mg/dL suggests IMPAIRED HOMEOSTASIS per A.D.A. criteria. Performed By: #### L 503.6150, L500.4100, L100.0500, L500.4050, L503.6550 ####[facility] [address] [place], [address] Potassium [Moles/Vol] 4.3 mmol/L Normal 3.5-5.1 [facility] Comment on above: Order Comment: Order Date: 11/29/23Order Info: [id number] - CMPOrder Info: - LIPIDOrder Info: [id number] - FEOrder Info: [id number] - MARTIN Performed By: #### L 503.6150, L500.4100, L100.0500, L500.4050, L503.6550 ####[facility] [address] [place], [address] Sodium [Moles/Vol] 138 mmol/L Normal 136-145 [facility] Comment on above: Order Comment: Order Date: 11/29/23Order Info: [id number] - CMPOrder Info: [id number] - LIPIDOrder Info: [id number] - FEOrder Info: [id number] - MARTIN Performed By: #### L 503.6150, L500.4100, L100.0500, L500.4050, L503.6550 ####[facility] [address] [place], [place], [id number] T PROT 6.6 g/dL Normal 6.4-8.2 [facility] Comment on above: Order Comment: Order Date: 11/29/23Order Info: [id number] - CMPOrder Info: [id number] - LIPIDOrder Info: [id number] - FEOrder Info: [id number] - MARTIN Performed By: #### L 503.6150, L500.4100, L100.0500, L500.4050, L503.6550 ####[facility] [address] [place], [address] Urea nitrogen [Mass/Vol] 19 mg/dL High 7-18 [facility] Comment on above: Order Comment: Order Date: 11/29/23Order Info: 785- - CMPOrder Info: [id number] - LIPIDOrder Info: [id number] - FEOrder Info: [id number] - MARTIN Performed By: #### L 503.6150, L500.4100, L100.0500, L500.4050, L503.6550 ####[facility] [address] [place], [address] Ferritinon 12-22-2023 Ferritin [Mass/Vol] 452 ng/mL High 26-388 [facility] Comment on above: Order Comment: Order Date: 11/29/23Order Info: [id number] - CMPOrder Info: [id number] - LIPIDOrder Info: [id number] - FEOrder Info: [id number] - MARTIN Performed By: #### L 503.6150, L500.4100, L100.0500, L500.4050, L503.6550 ####[facility] [address] [place], [address] Ironon 12-22-2023 Iron [Mass/Vol] 92 ug/dL Normal 65-175 [facility] Comment on above: Order Comment: Order Date: 11/29/23Order Info: 785- - CMPOrder Info: [id number] - LIPIDOrder Info: [id number] - FEOrder Info: [id number] - MARTIN Performed By: #### L 503.6150, L500.4100, L100.0500, L500.4050, L503.6550 ####[facility] [address] [place], [address] Lipid Profileon 12-22-2023 Cholesterol [Mass/Vol] 112 mg/dL Normal 200 [facility] Comment on above: Order Comment: Order Date: 11/29/23Order Info: 86-1 - CMPOrder Info: [id number] - LIPIDOrder Info: [id number] - FEOrder Info: [id number] - MARTIN Result Comment: <200 mg/dL Desirable 200-240 mg/dL Borderline >240 mg/dL High Risk Performed By: #### L 503.6150, L500.4100, L100.0500, L500.4050, L503.6550 ####[facility] [address] [place], [address] Cholesterol in HDL [Mass/Vol] 44 mg/dL Normal [facility] Comment on above: Order Comment: Order Date: 11/29/23Order Info: 785- - CMPOrder Info: [id number] - LIPIDOrder Info: [id number] - FEOrder Info: [id number] - MARTIN Result Comment: The drugs N-Acetylcysteine and Metamizole may falsely depress this assay. Reference Range HDL <40 mg/dL Low HDL Cholesterol HDL >or= 60 mg/dL High HDL Cholesterol Performed By: #### L 503.6150, L500.4100, L100.0500, L500.4050, L503.6550 ####[facility] [address] [place], [address] Cholesterol in LDL [Mass/Vol] 47 mg/dL Normal 0-130 [facility] Comment on above: Order Comment: Order Date: 11/29/23Order Info: [id number] - CMPOrder Info: [id number] - LIPIDOrder Info: [id number] - FEOrder Info: [id number] - MARTIN Performed By: #### L 503.6150, L500.4100, L100.0500, L500.4050, L503.6550 ####[facility] [address] [place], [address] Cholesterol in VLDL [Mass/Vol] 21 mg/dL Normal 5-40 [facility] Comment on above: Order Comment: Order Date: 11/29/23Order Info: [id number] - CMPOrder Info: [id number] - LIPIDOrder Info: [id number] - FEOrder Info: [id number] - MARTIN Performed By: #### L 503.6150, L500.4100, L100.0500, L500.4050, L503.6550 ####[facility] [address] [place], [address] Triglyceride [Mass/Vol] 104 mg/dL Normal [facility] Comment on above: Order Comment: Order Date: 11/29/23Order Info: [id number] - CMPOrder Info: [id number] - LIPIDOrder Info: [id number] - FEOrder Info: [id number] - MARTIN Result Comment: The drugs N-Acetylcysteine and Metamizole may falsely depress this assay. Serum Triglycerides Reference Interval Normal <150 mg/dL Borderline high 150 - 199 mg/dL High 200 - 499 mg/dL Very High > or = 500 mg/dL Performed By: #### L 503.6150, L500.4100, L100.0500, L500.4050, L503.6550 ####[facility] [id number] [place], [address] Oncology Visit Reporton 12-06 Oncology Visit Report [facility] [address] [place] [address] OFFICE VISIT Date of Service: 12/22/23 1331 MR#: [id number] Acct: [id number] Name: YEFRI YANEZ Rep #: [id number] : 1965 From: Dangelo Botello MD Age/Sex: 58/M Location: [facility] [place] Status: Signed HPI Subjective Date of Service [...] for follow up after CT. Feeling well [facility] Medical History Abnormal chest x-ray Warfarin-induced [...] 12.5 mg (more content not included)... Normal [facility] Basophil percentageOrdered B y: Jose Ramon Turner on 05-27-2023 Bilirubin [Mass/Vol] 0.60 mg/dL 0.20-1.00 [facility] Comment on above: For patients on eltr ombopag therapy, use of Dimension [place] TBIL is not recommended. Chloride [Moles/Vol] 106 mmol/L 98-107 [facility] Glucose [Mass/Vol] 106 mg/dL 74-106 [facility] Comment on above: Fasting Glucose resu lt from 100 to 125 mg/dL suggests IMPAIRED HOMEOSTASIS per A.D.A. criteria. Potassium [Moles/Vol] 3.8 mmol/L 3.5-5.1 [facility] Comment on above: Slight Hemolysis, Re sult may be falsely increased. Protein [Mass/Vol] 6.7 g/dL 6.4-8.2 [facility] Sodium [Moles/Vol] 138 mmol/L 136-145 [facility] Testosterone [Mass/Vol] 173.63 ng/dL [facility] Comment on above: CENTRAL 90% REFERENC E RANGES MALE AGE <50 197.44 - 669.58 ng/dL MALE AGE > or = 50 187.72 - 684.19 ng/dL FEMALE AGE <50 8.38 - 35.01 ng/dL FEMALE AGE > or = 50 <7.00 - 35.92 ng/dL Effective as of 10/01/20 Iron measurement (mass/mass) Ordered By: Jose Ramon Turner on 05-27-2023 Iron (Unsp spec) [Mass/Mass] 115 ug/dL 65-175 [facility] Comment on above: Slight Hemolysis, Re sult may be falsely increased. Laboratory - Chemistry and C hemistry - challengeOrdered By: Jose Ramon Turner on 05-27-2023 Albumin/Globulin [Mass ratio] 0.9 {ratio} 0.9-2.4 [facility] ALP [Catalytic activity/Vol] 73 U/L 45-117 [facility] ALT [Catalytic activity/Vol] 54 U/L 16-61 [facility] CO2 [Moles/Vol] 24.0 mmol/L 21.0-32.0 [facility] Cobalamin (Vitamin B12) [Mass/Vol] 241 pg/mL 211-911 [facility] Ferritin [Mass/Vol] 515 ng/mL 26-388 [facility] Globulin (S) [Mass/Vol] 3.6 g/dL 2.2-4.2 [facility] Urea nitrogen/Creatinine [Mass ratio] 10.7 mg/mg 10-20 [facility] No Panel InformationOrdered By: Jose Ramon Turner on 05-27-2023 Estimated GFR (MDRD) Amer 54 mL/min >60 [facility] Comment on above: GFR Calc Estimated GFR (MDRD) Non-Af Amer 44 mL/min >60 [facility] Comment on above: Non- GFR Calc Serum or plasma calcium cory urement (mass/volume)Ordered By: Jose Ramon Turner on 05-27-2023 Calcium [Mass/Vol] 8.8 mg/dL 8.5-10.1 [facility] Serum or plasma creatinine m easurement (mass/volume)Ordered By: Jose Ramon Turner on 05-27-2023 Creatinine [Mass/Vol] 1.69 mg/dL 0.70-1.30 [facility] Comment on above: The validity of the calculated GFR & GFRAA in patients over 70 years has not been determined. Clinical correlation is essential. Serum or plasma thyroid stim ulating hormone (TSH) measurement (units/volume)Ordered By: Jose Ramon Turner on 05-27-2023 TSH Qn 3.25 uIU/mL 0.358-3.74 [facility] Serum or plasma urea nitroge n measurement (mass/volume)Ordered By: Jose Ramon Turner on 05-27-2023 Urea nitrogen [Mass/Vol] 18 mg/dL 7-18 [facility] Thin prep Papanicolaou smear with manual screeningOrdered By: Jose Ramon Turner on 05-27-2023 Thin prep Papanicolaou smear with manual screening 3.1 g/dL 3.2-5.0 [facility] Thin prep Papanicolaou smear with manual screening 40 U/L 15 [facility] Comment on above: Slight Hemolysis, Re sult may be falsely increased. Thin prep Papanicolaou smear with manual screening 8 5-15 [facility] Clostridioides difficile nuc leic acid assay by PCROrdered By: Jose Ramon Turner on 05-21-2023 C. difficile DNA SANDOVAL+probe Ql (Unsp spec) [facility] Lower GI hemoglobin IA Ql (S tl)Ordered By: Jose Ramon Turner on 05-21-2023 Stool Occult Blood (STEVENSON) Positive [facility] Ova and parasitesOrdered By: Jose Ramon Turner on 05-21-2023 Ova and parasites identified LM Nom (Unsp spec) [facility] Stool enteric pathogen panel by probe and target amplification methodOrdered By: Jose Ramon Turner on 05-21-2023 Gastrointestinal pathogens panel SANDOVAL+probe (Stl) [facility] Stool pancreatic elastase me asurement (mass/mass)Ordered By: Jose Ramon Turner on 05-21-2023 Elastase.pancreatic (Stl) [Mass/Mass] See comment [facility] Comment on above: TEST RESULTS LIMITSP ancreatic Elastase, Fecal 218 ug Elast./g >200 Severe Pancreatic Insufficiency: <100 Moderate Pancreatic Insufficiency: 100 - 200 Normal: >200 TESTING PERFORMED AT [facility]. ORIGINAL REPORT ON FILE IN LAB CONTAINS ADDITIONAL TEST SITE INFORMATION. Basophil percentageOrdered B y: Jose Ramon Turner on 05-20-2023 Basophil percentage 2.0 mg/dL 2.5-4.9 [facility] Chloride [Moles/Vol] 104 mmol/L 98-107 [facility] Glucose [Mass/Vol] 113 mg/dL 74-106 [facility] Comment on above: Fasting Glucose resu lt from 100 to 125 mg/dL suggests IMPAIRED HOMEOSTASIS per A.D.A. criteria. Potassium [Moles/Vol] 3.8 mmol/L 3.5-5.1 [facility] Sodium [Moles/Vol] 137 mmol/L 136-145 [facility] Laboratory - Chemistry and C hemistry - challengeOrdered By: Jose Ramon Turner on 05-20-2023 CO2 [Moles/Vol] 24.0 mmol/L 21.0-32.0 [facility] Urea nitrogen/Creatinine [Mass ratio] 11.1 mg/mg 10-20 [facility] No Panel InformationOrdered By: Jose Ramon Turner on 05-20-2023 Estimated GFR (MDRD) Amer 47 mL/min >60 [facility] Comment on above: GFR Calc Estimated GFR (MDRD) Non-Af Amer 39 mL/min >60 [facility] Comment on above: Non- GFR Calc Serum or plasma calcium cory urement (mass/volume)Ordered By: Jose Ramon Turner on 05-20-2023 Calcium [Mass/Vol] 8.6 mg/dL 8.5-10.1 [facility] Serum or plasma creatinine m easurement (mass/volume)Ordered By: Jose Ramon Turner on 05-20-2023 Creatinine [Mass/Vol] 1.89 mg/dL 0.70-1.30 [facility] Comment on above: The validity of the calculated GFR & GFRAA in patients over 70 years has not been determined. Clinical correlation is essential. Serum or plasma urea nitroge n measurement (mass/volume)Ordered By: Jose Ramon Turner on 05-20-2023 Urea nitrogen [Mass/Vol] 21 mg/dL 7-18 [facility] Thin prep Papanicolaou smear with manual screeningOrdered By: Jose Ramon Turner on 05-20-2023 Thin prep Papanicolaou smear with manual screening 3.2 g/dL 3.2-5.0 [facility] Absolute lymphocyte countOrd ered By: Dangelo Botello on 04-12-2023 Lymphocytes Auto (Unsp spec) [#/Vol] 1.08 10*3/uL 0.83-4.51 [facility] Automated lymphocyte count a s percentage of total leukocytesOrdered By: Dangelo Paganguillermo on 04-12-2023 Lymphocytes/100 WBC Auto (Unsp spec) 18.6 % 19-41 [facility] Basophil percentageOrdered B y: Dangelo Botello on 04-12-2023 Basophils/100 WBC (Bld) 0.3 % 0-1 [facility] Bilirubin [Mass/Vol] 0.50 mg/dL 0.20-1.00 [facility] Comment on above: For patients on eltr ombopag therapy, use of Dimension [place] TBIL is not recommended. Chloride [Moles/Vol] 106 mmol/L 98-107 [facility] Eosinophils/100 WBC (Bld) 0.5 % 0-5 [facility] Glucose [Mass/Vol] 121 mg/dL 74-106 [facility] Comment on above: Fasting Glucose resu lt from 100 to 125 mg/dL suggests IMPAIRED HOMEOSTASIS per A.D.A. criteria. Hemoglobin (Bld) [Mass/Vol] 13.9 g/dL 13.0-16.5 [facility] LDH [Catalytic activity/Vol] 391 U/L 87-241 [facility] Comment on above: Slight Hemolysis, Re sult may be falsely increased. Monocytes/100 WBC (Bld) 6.4 % 0-10 [facility] Neutrophils (Bld) [#/Vol] 4.3 10*3/uL 2.0-7.7 [facility] Neutrophils/100 WBC (Bld) 74.0 % 47-70 [facility] Potassium [Moles/Vol] 3.6 mmol/L 3.5-5.1 [facility] Comment on above: Slight Hemolysis, Re sult may be falsely increased. Protein [Mass/Vol] 7.2 g/dL 6.4-8.2 [facility] Sodium [Moles/Vol] 141 mmol/L 136-145 [facility] WBC (Bld) [#/Vol] 5.8 10*3/uL 4.4-11.0 [facility] Blood manual differential co mment interpretation (narrative result)Ordered By: Dangelo Botello on 04-12-2023 Manual differential comment Piyush (Bld) [Interp] SCANNED [facility] Comment on above: 1+ ANISOCYTOSIS Determination of erythrocyte mean corpuscular volume (MCV)Ordered By: Dangelo Botello on 04-12-2023 MCV (RBC) [Entitic vol] 100.7 fL 80-94 [facility] Erythrocyte distribution wid th ratioOrdered By: Dangelo Botello on 04-12-2023 Erythrocyte distribution width (RBC) [Ratio] 17.9 % 11.6-14.6 [facility] Erythrocyte distribution wid th standard deviationOrdered By: Dangelo Botello on 04-12-2023 Erythrocyte distribution width (RBC) [Entitic vol] 66.3 fL 35.1-43.9 [facility] Hematocrit Auto (Bld) [Volum e fraction]Ordered By: Dangelo Botello on 04-12-2023 Hematocrit (Bld) [Volume fraction] 41.9 % 40-54 [facility] Immature granulocytes/100 WB C Auto (Bld)Ordered By: Dangelo Botello on 04-12-2023 Immature granulocytes/100 WBC (Bld) 0.200 % 0.0-0.9 [facility] Comment on above: IG% - Immature Granu locytes (promyelocytes, myelocytes and metamyelocytes) > 1% indicates that a LEFT SHIFT is Present. Laboratory - Chemistry and C hemistry - challengeOrdered By: Dangelo Botello on 04-12-2023 Albumin/Globulin [Mass ratio] 0.8 {ratio} 0.9-2.4 [facility] ALP [Catalytic activity/Vol] 61 U/L 45-117 [facility] ALT [Catalytic activity/Vol] 47 U/L 16-61 [facility] CO2 [Moles/Vol] 28.0 mmol/L 21.0-32.0 [facility] Globulin (S) [Mass/Vol] 3.9 g/dL 2.2-4.2 [facility] Urea nitrogen/Creatinine [Mass ratio] 10.8 mg/mg 10-20 [facility] Laboratory - Hematology and Cell countsOrdered By: Dangelo Botello on 04-12-2023 MCH (RBC) [Entitic mass] 33.4 pg 27.0-32.0 [facility] MCHC (RBC) [Mass/Vol] 33.2 g/dL 32-36 [facility] Nucleated RBC/100 WBC (Bld) [Ratio] 0.3 % 0-5 [facility] Platelets (Bld) [#/Vol] 275 10*3/uL 150-450 [facility] No Panel InformationOrdered By: Dangelo Botello on 04-12-2023 Estimated Creatinine Clearance Calc 57.07 ml/min [facility] Estimated GFR (MDRD) Amer 48 mL/min >60 [facility] Comment on above: GFR Calc Estimated GFR (MDRD) Non-Af Amer 40 mL/min >60 [facility] Comment on above: Non- GFR Calc Platelet mean volume Kevin-Ec ker (Bld) [Entitic vol]Ordered By: Dangelo Botello on 04-12-2023 Platelet mean volume (Bld) [Entitic vol] 10.4 fL 6.2-12.0 [facility] RBC Auto (Bld) [#/Vol]Ordere d By: Dangelo Botello on 04-12-2023 RBC (Bld) [#/Vol] 4.16 10*6/uL 4.6-6.2 [facility] Serum or plasma calcium cory urement (mass/volume)Ordered By: Dangelo Botello on 04-12-2023 Calcium [Mass/Vol] 8.8 mg/dL 8.5-10.1 [facility] Serum or plasma creatinine m easurement (mass/volume)Ordered By: Dangelo Botello on 04-12-2023 Creatinine [Mass/Vol] 1.86 mg/dL 0.70-1.30 [facility] Comment on above: The validity of the calculated GFR & GFRAA in patients over 70 years has not been determined. Clinical correlation is essential. Serum or plasma urea nitroge n measurement (mass/volume)Ordered By: Dangelo Botello on 04-12-2023 Urea nitrogen [Mass/Vol] 20 mg/dL 7-18 [facility] Thin prep Papanicolaou smear with manual screeningOrdered By: Dangelo Botello on 04-12-2023 Thin prep Papanicolaou smear with manual screening 3.3 g/dL 3.2-5.0 [facility] Thin prep Papanicolaou smear with manual screening 34 U/L 15-37 [facility] Comment on above: Slight Hemolysis, Re sult may be falsely increased. Thin prep Papanicolaou smear with manual screening 7 -15 [facility] Basophil percentageOrdered B y: Isidra Chiu on 02-12-2023 Basophil percentage 0-5 SEEN /hpf 0-5 [facility] Bilirubin Test strip Ql (U)O rdered By: Isidra Chiu on 02-12-2023 Bilirubin Ql (U) Negative Negative [facility] Ketones Test strip Ql (U)Ord ered By: Isidra Chiu on 02-12-2023 Ketones Ql (U) Negative Negative [facility] Mucus LM Ql (Urine sed)Order ed By: Isidra Chiu on 02-12-2023 Mucus Ql (Urine sed) 0 SEEN /hpf [facility] Nitrite Test strip Ql (U)Ord ered By: Isidra Chiu on 02-12-2023 Nitrite Ql (U) Negative Negative [facility] Protein Test strip Ql (U)Ord ered By: Isidra Chiu on 02-12-2023 Protein Ql (U) 15 mg/dl Negative [facility] Squamous epithelial cells de tection in urine sediment by light microscopyOrdered By: Isidra Chiu on 02-12-2023 Epithelial cells.squamous LM Ql (Urine sed) 0 SEEN /hpf 0-5 [facility] Urine blood detectionOrdered By: Isidra Chiu on 02-12-2023 RBC Ql (U) Negative Negative [facility] RBC Ql (U) 0 SEEN /hpf 0-5 [facility] Urine clarityOrdered By: Bruce Chiu on 02-12-2023 Clarity (U) Clear Clear [facility] Urine color determinationOrd ered By: Isidra Chiu on 02-12-2023 Color (U) Yellow Yellow [facility] Urine creatinine measurement (mass/volume)Ordered By: Isidra Chiu on 02-12-2023 Creatinine (U) [Mass/Vol] 194.00 mg/dL NO RANGE EST. [facility] Urine glucose detectionOrder ed By: Isidra Chiu on 02-12-2023 Glucose Ql (U) Normal mg/dl Normal [facility] Urine leukocyte esterase det ection by dipstickOrdered By: Isidra Chiu on 02-12-2023 Leukocyte esterase Test strip Ql (U) 25 /ul Negative [facility] Urine pHOrdered By: Lynette Chiu on 02-12-2023 pH (U) 5.0 [pH] 5.0 - 8.0 [facility] Urine protein measurement (m ass/volume)Ordered By: Isidra Chiu on 02-12-2023 Protein (U) [Mass/Vol] 20.7 mg/dL 0.0-11.8 [facility] Urine protein/creatinine mas s ratioOrdered By: Isidra Chiu on 02-12-2023 Protein/Creatinine (U) [Mass ratio] 107 mg/g CRE 0-200 [facility] Urine sediment bacteria coun t by microscopy (number/high power field)Ordered By: Isidra Chiu on 02-12-2023 Bacteria LM.HPF (Urine sed) [#/Area] 0 /[HPF] None Seen [facility] Urine specific gravity measu rementOrdered By: Isidra Chiu on 02-12-2023 Specific gravity (U) [Rel density] 1.020 1.002-1.03 0 [facility] Urobilinogen Auto test strip Ql (U)Ordered By: Isidar Chiu on 02-12-2023 Urobilinogen Ql (U) Normal mg/dl Normal [facility] Absolute lymphocyte countOrd ered By: Carol Chiu on 12-17-2022 Lymphocytes Auto (Unsp spec) [#/Vol] 0.88 10*3/uL 0.83-4.51 [facility] Basophil percentageOrdered B y: Carol Chiu on 12-17-2022 Basophils/100 WBC (Bld) 0.4 % 0-1 [facility] Chloride [Moles/Vol] 107 mmol/L 98-107 [facility] Eosinophils/100 WBC (Bld) 1.0 % 0-5 [facility] Glucose [Mass/Vol] 110 mg/dL 74-106 [facility] Comment on above: Fasting Glucose resu lt from 100 to 125 mg/dL suggests IMPAIRED HOMEOSTASIS per A.D.A. criteria. Neutrophils (Bld) [#/Vol] 3.7 10*3/uL 2.0-7.7 [facility] Neutrophils/100 WBC (Bld) 71.5 % 47-70 [facility] Potassium [Moles/Vol] 3.5 mmol/L 3.5-5.1 [facility] Sodium [Moles/Vol] 138 mmol/L 136-145 [facility] WBC (Bld) [#/Vol] 5.2 10*3/uL 4.4-11.0 [facility] Blood erythrocytes count (nu mber/volume)Ordered By: Carol Chiu on 12-17-2022 RBC (Bld) [#/Vol] 4.04 10*6/uL 4.6-6.2 [facility] Blood hemoglobin measurement (mass/volume)Ordered By: Carol Chiu on 12-17-2022 Hemoglobin (Bld) [Mass/Vol] 13.9 g/dL 13.0-16.5 [facility] Blood lymphocytes/100 leukoc ytesOrdered By: Carol Chiu on 12-17-2022 Lymphocytes/100 WBC (Bld) 16.9 % 19-41 [facility] Blood monocytes/100 leukocyt esOrdered By: Carol Chiu on 12-17-2022 Monocytes/100 WBC (Bld) 9.8 % 0-10 [facility] Blood platelet mean volumeOr dered By: Carol Chiu on 12-17-2022 Platelet mean volume (Bld) [Entitic vol] 11.2 fL 6.2-12.0 [facility] Determination of erythrocyte mean corpuscular volume (MCV)Ordered By: Carol Chiu on 12-17-2022 MCV (RBC) [Entitic vol] 102.0 fL 80-94 [facility] Hematocrit Auto (Bld) [Volum e fraction]Ordered By: Carol Chiu on 12-17-2022 Hematocrit (Bld) [Volume fraction] 41.2 % 40-54 [facility] INR in Blood by Coagulation assayOrdered By: Marquise Padilla on 12-17-2022 INR Coag (Bld) [Relative time] 2.2 {INR} [facility] Laboratory - Chemistry and C hemistry - challengeOrdered By: Carol Chiu on 12-17-2022 CO2 [Moles/Vol] 26.0 mmol/L 21.0-32.0 [facility] Urea nitrogen/Creatinine [Mass ratio] 11.5 mg/mg 10-20 [facility] Laboratory - CoagulationOrde red By: Marquise Padilla on 12-17-2022 PT Coag (PPP) [Time] 24.6 s 11.7-14.9 [facility] Laboratory - Hematology and Cell countsOrdered By: Carol Chiu on 12-17-2022 Erythrocyte distribution width (RBC) [Entitic vol] 63.6 fL 35.1-43.9 [facility] Erythrocyte distribution width (RBC) [Ratio] 16.9 % 11.6-14.6 [facility] Immature granulocytes/100 WBC (Bld) 0.400 % 0.0-0.9 [facility] Comment on above: IG% - Immature Granu locytes (promyelocytes, myelocytes and metamyelocytes) > 1% indicates that a LEFT SHIFT is Present. MCH (RBC) [Entitic mass] 34.4 pg 27.0-32.0 [facility] Nucleated RBC/100 WBC (Bld) [Ratio] 0.8 % 0-5 [facility] MCHC Auto (RBC) [Mass/Vol]Or dered By: Carol Chiu on 12-17-2022 MCHC (RBC) [Mass/Vol] 33.7 g/dL 32-36 [facility] No Panel InformationOrdered By: Carol Chiu on 12-17-2022 Estimated Creatinine Clearance Calc 51.97 ml/min [facility] Estimated GFR (MDRD) Amer 55 mL/min >60 [facility] Comment on above: GFR Calc Estimated GFR (MDRD) Non-Af Amer 46 mL/min >60 [facility] Comment on above: Non- GFR Calc Platelets bldOrdered By: Lina Chiu on 12-17-2022 Platelets (Bld) [#/Vol] 193 10*3/uL 150-450 [facility] Serum or plasma calcium cory urement (mass/volume)Ordered By: Carol Chiu on 12-17-2022 Calcium [Mass/Vol] 9.3 mg/dL 8.5-10.1 [facility] Serum or plasma creatinine m easurement (mass/volume)Ordered By: Carol Chiu on 12-17-2022 Creatinine [Mass/Vol] 1.65 mg/dL 0.70-1.30 [facility] Comment on above: The validity of the calculated GFR & GFRAA in patients over 70 years has not been determined. Clinical correlation is essential. Serum or plasma urea nitroge n measurement (mass/volume)Ordered By: Carol Chiu on 12-17-2022 Urea nitrogen [Mass/Vol] 19 mg/dL 7-18 [facility] Thin prep Papanicolaou smear with manual screeningOrdered By: Carol Chiu on 12-17-2022 Thin prep Papanicolaou smear with manual screening 5 5-15 [facility] Blood manual differential co mment interpretation (narrative result)Ordered By: Marquise Padilla on 12-16-2022 Manual differential comment Piyush (Bld) [Interp] SCANNED [facility] Laboratory - Hematology and Cell countsOrdered By: Marquise Padilla on 12-16-2022 Anisocytosis Ql (Bld) 2+ [facility] Macrocytes detectionOrdered By: Marquise Padilla on 12-16-2022 Macrocytes Ql (Bld) 2+ [facility] Laboratory - Chemistry and C hemistry - challengeOrdered By: Speedy Bass on 12-15-2022 Natriuretic peptide B (Bld) [Mass/Vol] 574.1 pg/mL 0-100 [facility] No Panel InformationOrdered By: Marquise Padilla on 12-15-2022 Streptococcus pneumoniae Antigen (M [facility] Streptococcus pneumoniae Antigen (M [facility] No Panel InformationOrdered By: Speedy Bass on 12-15-2022 Troponin I High Sensitivity 40 pg/mL 3.0-78.0 [facility] Comment on above: Please Note: New [place] t Units and Gender Specific Reference Ranges. For more information see Policy Stat Procedure [place] High Sensitivity Troponin (TNIH) and attachments. Urine Legionella pneumophila antigen detectionOrdered By: Marquise Padilla on 12-15-2022 L. pneumophila Ag Ql (U) [facility] L. pneumophila Ag Ql (U) [facility] Basophil percentageOrdered B y: Jose Ramon Turner on 11-12-2022 Chloride [Moles/Vol] 106 mmol/L 98-107 [facility] Glucose [Mass/Vol] 89 mg/dL 74-106 [facility] Potassium [Moles/Vol] 3.9 mmol/L 3.5-5.1 [facility] Comment on above: Slight Hemolysis, Re sult may be falsely increased. Sodium [Moles/Vol] 138 mmol/L 136-145 [facility] WBC (Bld) [#/Vol] 5.4 10*3/uL 4.4-11.0 [facility] Blood erythrocytes count (nu mber/volume)Ordered By: Jose Ramon Turner on 11-12-2022 RBC (Bld) [#/Vol] 4.08 10*6/uL 4.6-6.2 [facility] Blood hemoglobin measurement (mass/volume)Ordered By: Jose Ramon Turner on 11-12-2022 Hemoglobin (Bld) [Mass/Vol] 14.2 g/dL 13.0-16.5 [facility] Blood manual differential co mment interpretation (narrative result)Ordered By: Jose Ramon Turner on 11-12-2022 Manual differential comment Piyush (Bld) [Interp] SCANNED [facility] Comment on above: 2+ ANISOCYTOSIS2+ MA CROCYTOSIS Blood platelet mean volumeOr dered By: Jose Ramon Turner on 11-12-2022 Platelet mean volume (Bld) [Entitic vol] 10.9 fL 6.2-12.0 [facility] Determination of erythrocyte mean corpuscular volume (MCV)Ordered By: Jose Ramon Turner on 11-12-2022 MCV (RBC) [Entitic vol] 105.1 fL 80-94 [facility] Hematocrit Auto (Bld) [Volum e fraction]Ordered By: Jose Ramon Turner on 11-12-2022 Hematocrit (Bld) [Volume fraction] 42.9 % 40-54 [facility] Laboratory - Chemistry and C hemistry - challengeOrdered By: Jose Ramon Turner on 11-12-2022 Natriuretic peptide B (Bld) [Mass/Vol] 255.5 pg/mL 0-100 [facility] CO2 [Moles/Vol] 27.0 mmol/L 21.0-32.0 [facility] Urea nitrogen/Creatinine [Mass ratio] 9.8 mg/mg 10-20 [facility] Laboratory - Hematology and Cell countsOrdered By: Jose Ramon Turner on 11-12-2022 Erythrocyte distribution width (RBC) [Entitic vol] 69.2 fL 35.1-43.9 [facility] Erythrocyte distribution width (RBC) [Ratio] 17.9 % 11.6-14.6 [facility] MCH (RBC) [Entitic mass] 34.8 pg 27.0-32.0 [facility] MCHC Auto (RBC) [Mass/Vol]Or dered By: Jose Ramon Turner on 11-12-2022 MCHC (RBC) [Mass/Vol] 33.1 g/dL 32-36 [facility] No Panel InformationOrdered By: Jose Ramon Turner on 11-12-2022 Estimated GFR (MDRD) Amer 52 mL/min >60 [facility] Comment on above: GFR Calc Estimated GFR (MDRD) Non-Af Amer 43 mL/min >60 [facility] Comment on above: Non- GFR Calc Platelets bldOrdered By: Bruce Turner on 11-12-2022 Platelets (Bld) [#/Vol] 242 10*3/uL 150-450 [facility] Serum or plasma calcium cory urement (mass/volume)Ordered By: Jose Ramon Turner on 11-12-2022 Calcium [Mass/Vol] 9.0 mg/dL 8.5-10.1 [facility] Serum or plasma creatinine m easurement (mass/volume)Ordered By: Jose Ramon Turner on 11-12-2022 Creatinine [Mass/Vol] 1.73 mg/dL 0.70-1.30 [facility] Comment on above: The validity of the calculated GFR & GFRAA in patients over 70 years has not been determined. Clinical correlation is essential. Serum or plasma urea nitroge n measurement (mass/volume)Ordered By: Jose Ramon Turner on 11-12-2022 Urea nitrogen [Mass/Vol] 17 mg/dL 7-18 [facility] Thin prep Papanicolaou smear with manual screeningOrdered By: Jose Ramon Turner on 11-12-2022 Thin prep Papanicolaou smear with manual screening 5 5-15 [facility] Absolute lymphocyte countOrd ered By: Dangelo Botello on 09-03-2022 Lymphocytes Auto (Unsp spec) [#/Vol] 0.99 10*3/uL 0.83-4.51 [facility] Basophil percentageOrdered B y: Dangelo Botello on 09-03-2022 Basophils/100 WBC (Bld) 0.3 % 0-1 [facility] Bilirubin [Mass/Vol] 0.60 mg/dL 0.20-1.00 [facility] Comment on above: For patients on eltr ombopag therapy, use of Dimension [place] TBIL is not recommended. Chloride [Moles/Vol] 102 mmol/L 98-107 [facility] Eosinophils/100 WBC (Bld) 0.2 % 0-5 [facility] Glucose [Mass/Vol] 110 mg/dL 74-106 [facility] Comment on above: Fasting Glucose resu lt from 100 to 125 mg/dL suggests IMPAIRED HOMEOSTASIS per A.D.A. criteria. LDH [Catalytic activity/Vol] 288 U/L 87-241 [facility] Neutrophils (Bld) [#/Vol] 5.0 10*3/uL 2.0-7.7 [facility] Neutrophils/100 WBC (Bld) 77.5 % 47-70 [facility] Potassium [Moles/Vol] 3.6 mmol/L 3.5-5.1 [facility] Protein [Mass/Vol] 7.2 g/dL 6.4-8.2 [facility] Sodium [Moles/Vol] 136 mmol/L 136-145 [facility] WBC (Bld) [#/Vol] 6.4 10*3/uL 4.4-11.0 [facility] Blood erythrocytes count (nu mber/volume)Ordered By: Dangelo Botello on 09-03-2022 RBC (Bld) [#/Vol] 4.37 10*6/uL 4.6-6.2 [facility] Blood hemoglobin measurement (mass/volume)Ordered By: Dangelo Botello on 09-03-2022 Hemoglobin (Bld) [Mass/Vol] 15.2 g/dL 13.0-16.5 [facility] Blood lymphocytes/100 leukoc ytesOrdered By: Dangelo Botello on 09-03-2022 Lymphocytes/100 WBC (Bld) 15.4 % 19-41 [facility] Blood monocytes/100 leukocyt esOrdered By: Dangelo Botello on 09-03-2022 Monocytes/100 WBC (Bld) 6.1 % 0-10 [facility] Blood platelet mean volumeOr dered By: Dangelo Botello on 09-03-2022 Platelet mean volume (Bld) [Entitic vol] 10.0 fL 6.2-12.0 [facility] Determination of erythrocyte mean corpuscular volume (MCV)Ordered By: Dangelo Botello on 09-03-2022 MCV (RBC) [Entitic vol] 100.7 fL 80-94 [facility] Hematocrit Auto (Bld) [Volum e fraction]Ordered By: Dangelo Botello on 09-03-2022 Hematocrit (Bld) [Volume fraction] 44.0 % 40-54 [facility] Laboratory - Chemistry and C hemistry - challengeOrdered By: Dangelo Botello on 09-03-2022 ALP [Catalytic activity/Vol] 76 U/L 45-117 [facility] ALT [Catalytic activity/Vol] 52 U/L 16-61 [facility] CO2 [Moles/Vol] 28.0 mmol/L 21.0-32.0 [facility] Globulin (S) [Mass/Vol] 4.1 g/dL 2.2-4.2 [facility] Urea nitrogen/Creatinine [Mass ratio] 9.5 mg/mg 10-20 [facility] Laboratory - Hematology and Cell countsOrdered By: Dangelo Botello on 09-03-2022 Anisocytosis Ql (Bld) 1+ [facility] Erythrocyte distribution width (RBC) [Entitic vol] 68.4 fL 35.1-43.9 [facility] Erythrocyte distribution width (RBC) [Ratio] 18.4 % 11.6-14.6 [facility] Immature granulocytes/100 WBC (Bld) 0.500 % 0.0-0.9 [facility] Comment on above: IG% - Immature Granu locytes (promyelocytes, myelocytes and metamyelocytes) > 1% indicates that a LEFT SHIFT is Present. MCH (RBC) [Entitic mass] 34.8 pg 27.0-32.0 [facility] Nucleated RBC/100 WBC (Bld) [Ratio] 0.5 % 0-5 [facility] MCHC Auto (RBC) [Mass/Vol]Or dered By: Dangelo Botello on 09-03-2022 MCHC (RBC) [Mass/Vol] 34.5 g/dL 32-36 [facility] No Panel InformationOrdered By: Dangelo Botello on 09-03-2022 Estimated Creatinine Clearance Calc 47.91 ml/min [facility] Estimated GFR (MDRD) Amer 50 mL/min >60 [facility] Comment on above: GFR Calc Estimated GFR (MDRD) Non-Af Amer 42 mL/min >60 [facility] Comment on above: Non- GFR Calc Platelets bldOrdered By: Jose Botello on 09-03-2022 Platelets (Bld) [#/Vol] 241 10*3/uL 150-450 [facility] Serum or plasma albumin cory urement (mass/volume)Ordered By: Dangelo Botello on 09-03-2022 Albumin [Mass/Vol] 3.1 g/dL 3.2-5.0 [facility] Serum or plasma albumin/glob ulin mass ratioOrdered By: Dangelo Botello on 09-03-2022 Albumin/Globulin [Mass ratio] 0.8 {ratio} 0.9-2.4 [facility] Serum or plasma calcium cory urement (mass/volume)Ordered By: Dangelo Botello on 09-03-2022 Calcium [Mass/Vol] 9.2 mg/dL 8.5-10.1 [facility] Serum or plasma creatinine m easurement (mass/volume)Ordered By: Dangelo Botello on 09-03-2022 Creatinine [Mass/Vol] 1.79 mg/dL 0.70-1.30 [facility] Comment on above: The validity of the calculated GFR & GFRAA in patients over 70 years has not been determined. Clinical correlation is essential. Serum or plasma urea nitroge n measurement (mass/volume)Ordered By: Dangelo Botello on 09-03-2022 Urea nitrogen [Mass/Vol] 17 mg/dL 7-18 [facility] Thin prep Papanicolaou smear with manual screeningOrdered By: Dangelo Botello on 09-03-2022 Thin prep Papanicolaou smear with manual screening 36 U/L 15-37 [facility] Thin prep Papanicolaou smear with manual screening 6 5-15 [facility] Absolute lymphocyte countOrd ered By: Dr. Wei on 06-29-2022 Lymphocytes Auto (Unsp spec) [#/Vol] 0.27 10*3/uL 0.83-4.51 [facility] Basophil percentageOrdered B y: Dr. Wei on 06-29-2022 Basophils/100 WBC (Bld) 0.1 % 0-1 [facility] Chloride [Moles/Vol] 107 mmol/L 98-107 [facility] Eosinophils/100 WBC (Bld) 0.0 % 0-5 [facility] Glucose [Mass/Vol] 210 mg/dL 74-106 [facility] Comment on above: Glucose result great er than or equal to 200 mg/dLsuggests DIABETES MELLITUS per A.D.A. criteria. Neutrophils (Bld) [#/Vol] 8.6 10*3/uL 2.0-7.7 [facility] Neutrophils/100 WBC (Bld) 91.8 % 47-70 [facility] Potassium [Moles/Vol] 3.9 mmol/L 3.5-5.1 [facility] Sodium [Moles/Vol] 137 mmol/L 136-145 [facility] WBC (Bld) [#/Vol] 9.3 10*3/uL 4.4-11.0 [facility] Basophil percentageOrdered B y: Dr. Lu on 06-29-2022 Cholesterol [Mass/Vol] 126 mg/dL <200 [facility] Comment on above: <200 mg/dL Desirable 200-240 mg/dL Borderline >240 mg/dL High Risk Triglyceride [Mass/Vol] 60 mg/dL <199 [facility] Comment on above: The drugs N-Acetylcy steine and Metamizole may falsely depress this assay.Serum Triglycerides Reference Interval Normal <150 mg/dL Borderline high 150 - 199 mg/dL High 200 - 499 mg/dL Very High > or = 500 mg/dL Blood erythrocytes count (nu mber/volume)Ordered By: Dr. Wei on 06-29-2022 RBC (Bld) [#/Vol] 4.28 10*6/uL 4.6-6.2 [facility] Blood hemoglobin measurement (mass/volume)Ordered By: Dr. Wei on 06-29-2022 Hemoglobin (Bld) [Mass/Vol] 14.4 g/dL 13.0-16.5 [facility] Blood lymphocytes/100 leukoc ytesOrdered By: Dr. Wei on 06-29-2022 Lymphocytes/100 WBC (Bld) 2.9 % 19-41 [facility] Blood manual differential co mment interpretation (narrative result)Ordered By: Dr. Wei on 06-29-2022 Manual differential comment Piyush (Bld) [Interp] SCANNED [facility] Comment on above: LYMPHOPENIA Blood monocytes/100 leukocyt esOrdered By: Dr. Wei on 06-29-2022 Monocytes/100 WBC (Bld) 4.4 % 0-10 [facility] Blood platelet mean volumeOr dered By: Dr. Wei on 06-29-2022 Platelet mean volume (Bld) [Entitic vol] 11.4 fL 6.2-12.0 [facility] Determination of erythrocyte mean corpuscular volume (MCV)Ordered By: Dr. Wei on 06-29-2022 MCV (RBC) [Entitic vol] 101.9 fL 80-94 [facility] Hematocrit Auto (Bld) [Volum e fraction]Ordered By: Dr. Wei on 06-29-2022 Hematocrit (Bld) [Volume fraction] 43.6 % 40-54 [facility] Laboratory - Chemistry and C hemistry - challengeOrdered By: Dr. Wei on 06-29-2022 CO2 [Moles/Vol] 27.0 mmol/L 21.0-32.0 [facility] Urea nitrogen/Creatinine [Mass ratio] 16.2 mg/mg 10-20 [facility] Laboratory - Hematology and Cell countsOrdered By: Dr. Wei on 06-29-2022 Anisocytosis Ql (Bld) 2+ [facility] Erythrocyte distribution width (RBC) [Entitic vol] 66.1 fL 35.1-43.9 [facility] Erythrocyte distribution width (RBC) [Ratio] 18.0 % 11.6-14.6 [facility] Immature granulocytes/100 WBC (Bld) 0.800 % 0.0-0.9 [facility] Comment on above: IG% - Immature Granu locytes (promyelocytes, myelocytes and metamyelocytes) > 1% indicates that a LEFT SHIFT is Present. MCH (RBC) [Entitic mass] 33.6 pg 27.0-32.0 [facility] Nucleated RBC/100 WBC (Bld) [Ratio] 2.7 % 0-5 [facility] MCHC Auto (RBC) [Mass/Vol]Or dered By: Dr. Wei on 06-29-2022 MCHC (RBC) [Mass/Vol] 33.0 g/dL 32-36 [facility] No Panel InformationOrdered By: Dr. Wei on 06-29-2022 Estimated Creatinine Clearance Calc 55.69 ml/min [facility] Estimated GFR (MDRD) Amer 60 mL/min >60 [facility] Comment on above: GFR Calc Estimated GFR (MDRD) Non-Af Amer 50 mL/min >60 [facility] Comment on above: Non- GFR Calc Platelets bldOrdered By: Dr. Wei on 06-29-2022 Platelets (Bld) [#/Vol] 191 10*3/uL 150-450 [facility] Serum or plasma calcium cory urement (mass/volume)Ordered By: Dr. Wei on 06-29-2022 Calcium [Mass/Vol] 9.1 mg/dL 8.5-10.1 [facility] Serum or plasma cholesterol in HDL measurement (mass/volume)Ordered By: Dr. Lu on 06-29-2022 Cholesterol in HDL [Mass/Vol] 54 mg/dL >40 [facility] Comment on above: The drugs N-Acetylcy steine and Metamizole may falsely depress this assay. Reference Range HDL <40 mg/dL Low HDL Cholesterol HDL >or= 60 mg/dL High HDL Cholesterol Serum or plasma cholesterol in VLDL measurement (mass/volume)Ordered By: Dr. Lu on 06-29-2022 Cholesterol in VLDL [Mass/Vol] 12 mg/dL 5-40 [facility] Serum or plasma creatinine m easurement (mass/volume)Ordered By: Dr. Wei on 06-29-2022 Creatinine [Mass/Vol] 1.54 mg/dL 0.70-1.30 [facility] Comment on above: The validity of the calculated GFR & GFRAA in patients over 70 years has not been determined. Clinical correlation is essential. Serum or plasma low density lipoprotein (LDL) cholesterol measurement (mass/volume)Ordered By: Dr. Lu on 06-29-2022 Cholesterol in LDL [Mass/Vol] 60 mg/dL 0-130 [facility] Serum or plasma urea nitroge n measurement (mass/volume)Ordered By: Dr. Wei on 06-29-2022 Urea nitrogen [Mass/Vol] 25 mg/dL 7-18 [facility] Thin prep Papanicolaou smear with manual screeningOrdered By: Dr. Wei on 06-29-2022 Thin prep Papanicolaou smear with manual screening 3 5-15 [facility] Basophil percentageOrdered B y: Dr. Lu on 06-28-2022 Bilirubin [Mass/Vol] 0.80 mg/dL 0.20-1.00 [facility] Comment on above: For patients on eltr ombopag therapy, use of Dimension [place] TBIL is not recommended. Protein [Mass/Vol] 6.7 g/dL 6.4-8.2 [facility] Blood polychromasia detectio n by light microscopyOrdered By: Dr. Lu on 06-28-2022 Polychromasia LM Ql (Bld) RARE [facility] INR in Blood by Coagulation assayOrdered By: Dr. Lu on 06-28-2022 INR Coag (Bld) [Relative time] 2.1 {INR} [facility] Laboratory - Chemistry and C hemistry - challengeOrdered By: Dr. Lu on 06-28-2022 ALP [Catalytic activity/Vol] 111 U/L 45-117 [facility] ALT [Catalytic activity/Vol] 146 U/L 16-61 [facility] Globulin (S) [Mass/Vol] 3.6 g/dL 2.2-4.2 [facility] Magnesium [Mass/Vol] 2.1 mg/dL 1.6-2.6 [facility] Laboratory - CoagulationOrde red By: Dr. Lu on 06-28-2022 PT Coag (PPP) [Time] 22.9 s 11.7-14.9 [facility] Laboratory - Microbiology an d Antimicrobial susceptibilityOrdered By: Estelita Lu on 06-28-2022 Respiratory pathogens DNA and RNA 12b panel SANDOVAL+probe (Unsp spec) [facility] Laboratory - Microbiology an d Antimicrobial susceptibilityOrdered By: Dr. Lu on 06-28-2022 Respiratory pathogens DNA and RNA 12b panel SANDOVAL+probe (Unsp spec) [facility] Macrocytes detectionOrdered By: Dr. Lu on 06-28-2022 Macrocytes Ql (Bld) 1+ [facility] No Panel InformationOrdered By: Dr. Lu on 06-28-2022 Troponin I High Sensitivity 87 pg/mL 3.0-78.0 [facility] Comment on above: Please Note: New [place] t Units and Gender Specific Reference Ranges. For more information see Policy Stat Procedure [place] High Sensitivity Troponin (TNIH) and attachments. Thyroid Stimulating Hormone (TSH) 2.20 uIU/mL 0.358-3.74 [facility] Ovalocyte detectionOrdered B y: Dr. Lu on 06-28-2022 Ovalocytes LM Ql (Bld) RARE [facility] Serum or plasma albumin cory urement (mass/volume)Ordered By: Dr. Lu on 06-28-2022 Albumin [Mass/Vol] 3.1 g/dL 3.2-5.0 [facility] Serum or plasma albumin/glob ulin mass ratioOrdered By: Dr. Lu on 06-28-2022 Albumin/Globulin [Mass ratio] 0.9 {ratio} 0.9-2.4 [facility] Serum procalcitonin measurem entOrdered By: Dr. Lu on 06-28-2022 Procalcitonin [Mass/Vol] 0.09 ng/mL 0.00-0.09 [facility] Comment on above: A procalcitonin (PCT ) [...] smear with manual screening 130 U/L 15-37 [facility] Absolute lymphocyte countOrd ered By: Dr. Hastings on 06-27-2022 Lymphocytes Auto (Unsp spec) [#/Vol] 0.93 10*3/uL 0.83-4.51 [facility] Basophil percentageOrdered B y: Dr. Lu on 06-27-2022 Basophil percentage 2.8 mg/dL 2.5-4.9 [facility] Basophil percentageOrdered B y: Dr. Hastings on 06-27-2022 Basophils/100 WBC (Bld) 0.4 % 0-1 [facility] Chloride [Moles/Vol] 109 mmol/L 98-107 [facility] Eosinophils/100 WBC (Bld) 0.5 % 0-5 [facility] Glucose [Mass/Vol] 127 mg/dL 74-106 [facility] Comment on above: Fasting Glucose resu lt greater than or equal to 126 mg/dL suggests DIABETES MELLITUS per A.D.A. criteria. Neutrophils (Bld) [#/Vol] 4.2 10*3/uL 2.0-7.7 [facility] Neutrophils/100 WBC (Bld) 75.4 % 47-70 [facility] Potassium [Moles/Vol] 3.5 mmol/L 3.5-5.1 [facility] Sodium [Moles/Vol] 140 mmol/L 136-145 [facility] WBC (Bld) [#/Vol] 5.5 10*3/uL 4.4-11.0 [facility] Blood erythrocytes count (nu mber/volume)Ordered By: Dr. Hastings on 06-27-2022 RBC (Bld) [#/Vol] 4.24 10*6/uL 4.6-6.2 [facility] Blood hemoglobin measurement (mass/volume)Ordered By: Dr. Hastings on 06-27-2022 Hemoglobin (Bld) [Mass/Vol] 14.6 g/dL 13.0-16.5 [facility] Blood lymphocytes/100 leukoc ytesOrdered By: Dr. Hastings on 06-27-2022 Lymphocytes/100 WBC (Bld) 16.8 % 19-41 [facility] Blood manual differential co mment interpretation (narrative result)Ordered By: Dr. Hastings on 06-27-2022 Manual differential comment Piyush (Bld) [Interp] SCANNED [facility] Blood monocytes/100 leukocyt esOrdered By: Dr. Hastings on 06-27-2022 Monocytes/100 WBC (Bld) 6.0 % 0-10 [facility] Blood platelet mean volumeOr dered By: Dr. Hastings on 06-27-2022 Platelet mean volume (Bld) [Entitic vol] 11.2 fL 6.2-12.0 [facility] Determination of erythrocyte mean corpuscular volume (MCV)Ordered By: Dr. Hastings on 06-27-2022 MCV (RBC) [Entitic vol] 103.3 fL 80-94 [facility] Hematocrit Auto (Bld) [Volum e fraction]Ordered By: Dr. Hastings on 06-27-2022 Hematocrit (Bld) [Volume fraction] 43.8 % 40-54 [facility] INR in Blood by Coagulation assayOrdered By: Dr. Hastings on 06-27-2022 INR Coag (Bld) [Relative time] 2.0 {INR} [facility] Laboratory - Chemistry and C hemistry - challengeOrdered By: Dr. Hastings on 06-27-2022 CO2 [Moles/Vol] 26.0 mmol/L 21.0-32.0 [facility] Natriuretic peptide B (Bld) [Mass/Vol] 278.3 pg/mL 0-100 [facility] Urea nitrogen/Creatinine [Mass ratio] 14.7 mg/mg 10-20 [facility] Laboratory - CoagulationOrde red By: Dr. Hastings on 06-27-2022 aPTT Coag (Bld) [Time] 46.5 s 24.1-36.2 [facility] PT Coag (PPP) [Time] 22.5 s 11.7-14.9 [facility] Laboratory - Hematology and Cell countsOrdered By: Dr. Hastings on 06-27-2022 Anisocytosis Ql (Bld) 2+ [facility] Erythrocyte distribution width (RBC) [Entitic vol] 67.8 fL 35.1-43.9 [facility] Erythrocyte distribution width (RBC) [Ratio] 17.9 % 11.6-14.6 [facility] Immature granulocytes/100 WBC (Bld) 0.900 % 0.0-0.9 [facility] Comment on above: IG% - Immature Granu locytes (promyelocytes, myelocytes and metamyelocytes) > 1% indicates that a LEFT SHIFT is Present. MCH (RBC) [Entitic mass] 34.4 pg 27.0-32.0 [facility] Nucleated RBC/100 WBC (Bld) [Ratio] 2.9 % 0-5 [facility] MCHC Auto (RBC) [Mass/Vol]Or dered By: Dr. Hastings on 06-27-2022 MCHC (RBC) [Mass/Vol] 33.3 g/dL 32-36 [facility] Macrocytes detectionOrdered By: Dr. Hastings on 06-27-2022 Macrocytes Ql (Bld) 2+ [facility] No Panel InformationOrdered By: Dr. Hastings on 06-27-2022 Estimated Creatinine Clearance Calc 46.61 ml/min [facility] Estimated GFR (MDRD) Amer 49 mL/min >60 [facility] Comment on above: GFR Calc Estimated GFR (MDRD) Non-Af Amer 40 mL/min >60 [facility] Comment on above: Non- GFR Calc Troponin I High Sensitivity 92 pg/mL 3.0-78.0 [facility] Comment on above: Please Note: New [place] t Units and Gender Specific Reference Ranges. For more information see Policy Stat Procedure [place] High Sensitivity Troponin (TNIH) and attachments. Platelets bldOrdered By: Dr. Hastings on 06-27-2022 Platelets (Bld) [#/Vol] 201 10*3/uL 150-450 [facility] Serum or plasma calcium cory urement (mass/volume)Ordered By: Dr. Hastings on 06-27-2022 Calcium [Mass/Vol] 8.9 mg/dL 8.5-10.1 [facility] Serum or plasma creatinine m easurement (mass/volume)Ordered By: Dr. Hastings on 06-27-2022 Creatinine [Mass/Vol] 1.84 mg/dL 0.70-1.30 [facility] Comment on above: The validity of the calculated GFR & GFRAA in patients over 70 years has not been determined. Clinical correlation is essential. Serum or plasma urea nitroge n measurement (mass/volume)Ordered By: Dr. Hastings on 06-27-2022 Urea nitrogen [Mass/Vol] 27 mg/dL 7-18 [facility] Thin prep Papanicolaou smear with manual screeningOrdered By: Dr. Hastings on 06-27-2022 Thin prep Papanicolaou smear with manual screening 5 5-15 [facility] Basophil percentageOrdered B y: Dr. Che on 05-20-2022 Chloride [Moles/Vol] 103 mmol/L 98-107 [facility] Glucose [Mass/Vol] 170 mg/dL 74-106 [facility] Comment on above: Fasting Glucose resu lt greater than or equal to 126 mg/dL suggests DIABETES MELLITUS per A.D.A. criteria. Potassium [Moles/Vol] 3.3 mmol/L 3.5-5.1 [facility] Sodium [Moles/Vol] 140 mmol/L 136-145 [facility] INR in Blood by Coagulation assayOrdered By: Dr. Dukes on 05-20-2022 INR Coag (Bld) [Relative time] 2.7 {INR} [facility] Laboratory - Chemistry and C hemistry - challengeOrdered By: Dr. Che on 05-20-2022 CO2 [Moles/Vol] 30.0 mmol/L 21.0-32.0 [facility] Urea nitrogen/Creatinine [Mass ratio] 11.8 mg/mg 10-20 [facility] Laboratory - CoagulationOrde red By: Dr. Dukes on 05-20-2022 PT Coag (PPP) [Time] 28.3 s 11.7-14.9 [facility] No Panel InformationOrdered By: Dr. Che on 05-20-2022 Estimated Creatinine Clearance Calc 48.18 ml/min [facility] Estimated GFR (MDRD) Amer 51 mL/min >60 [facility] Comment on above: GFR Calc Estimated GFR (MDRD) Non-Af Amer 42 mL/min >60 [facility] Comment on above: Non- GFR Calc Serum or plasma calcium cory urement (mass/volume)Ordered By: Dr. Che on 05-20-2022 Calcium [Mass/Vol] 8.8 mg/dL 8.5-10.1 [facility] Serum or plasma creatinine m easurement (mass/volume)Ordered By: Dr. Che on 05-20-2022 Creatinine [Mass/Vol] 1.78 mg/dL 0.70-1.30 [facility] Comment on above: The validity of the calculated GFR & GFRAA in patients over 70 years has not been determined. Clinical correlation is essential. Serum or plasma urea nitroge n measurement (mass/volume)Ordered By: Dr. Che on 05-20-2022 Urea nitrogen [Mass/Vol] 21 mg/dL 09-22 [facility] Thin prep Papanicolaou smear with manual screeningOrdered By: Dr. Che on 05-20-2022 Thin prep Papanicolaou smear with manual screening 7 - [facility] Absolute lymphocyte countOrd ered By: Dr. Dukes on 05-19-2022 Lymphocytes Auto (Unsp spec) [#/Vol] 0.92 10*3/uL 0.83-4.51 [facility] Basophil percentageOrdered B y: Dr. Dukes on 05-19-2022 Basophils/100 WBC (Bld) 0.2 % 0-1 [facility] Bilirubin [Mass/Vol] 0.70 mg/dL 0.20-1.00 [facility] Comment on above: For patients on eltr ombopag therapy, use of Dimension [place] TBIL is not recommended. Eosinophils/100 WBC (Bld) 0.5 % 0-5 [facility] Neutrophils (Bld) [#/Vol] 5.0 10*3/uL 2.0-7.7 [facility] Neutrophils/100 WBC (Bld) 80.2 % 47-70 [facility] Protein [Mass/Vol] 6.4 g/dL 6.4-8.2 [facility] WBC (Bld) [#/Vol] 6.2 10*3/uL 4.4-11.0 [facility] Blood erythrocytes count (nu mber/volume)Ordered By: Dr. Dukes on 05-19-2022 RBC (Bld) [#/Vol] 3.95 10*6/uL 4.6-6.2 [facility] Blood hemoglobin measurement (mass/volume)Ordered By: Dr. Dukes on 05-19-2022 Hemoglobin (Bld) [Mass/Vol] 13.5 g/dL 13.0-16.5 [facility] Blood lymphocytes/100 leukoc ytesOrdered By: Dr. Dukes on 05-19-2022 Lymphocytes/100 WBC (Bld) 14.8 % 19-41 [facility] Blood manual differential co mment interpretation (narrative result)Ordered By: Dr. Dukes on 05-19-2022 Manual differential comment Piyush (Bld) [Interp] SCANNED [facility] Blood monocytes/100 leukocyt esOrdered By: Dr. Dukes on 05-19-2022 Monocytes/100 WBC (Bld) 4.0 % 0-10 [facility] Blood platelet mean volumeOr dered By: Dr. Dukes on 05-19-2022 Platelet mean volume (Bld) [Entitic vol] 10.0 fL 6.2-12.0 [facility] Blood polychromasia detectio n by light microscopyOrdered By: Dr. Dukes on 05-19-2022 Polychromasia LM Ql (Bld) RARE [facility] Determination of erythrocyte mean corpuscular volume (MCV)Ordered By: Dr. Dukes on 05-19-2022 MCV (RBC) [Entitic vol] 104.1 fL 80-94 [facility] Hematocrit Auto (Bld) [Volum e fraction]Ordered By: Dr. Dukes on 05-19-2022 Hematocrit (Bld) [Volume fraction] 41.1 % 40-54 [facility] Laboratory - Chemistry and C hemistry - challengeOrdered By: Dr. Dukes on 05-19-2022 ALP [Catalytic activity/Vol] 64 U/L 45-117 [facility] ALT [Catalytic activity/Vol] 61 U/L 16-61 [facility] Globulin (S) [Mass/Vol] 3.4 g/dL 2.2-4.2 [facility] Magnesium [Mass/Vol] 2.1 mg/dL 1.6-2.6 [facility] Laboratory - Hematology and Cell countsOrdered By: Dr. Dukes on 05-19-2022 Anisocytosis Ql (Bld) 2+ [facility] Erythrocyte distribution width (RBC) [Entitic vol] 74.2 fL 35.1-43.9 [facility] Erythrocyte distribution width (RBC) [Ratio] 19.1 % 11.6-14.6 [facility] Immature granulocytes/100 WBC (Bld) 0.300 % 0.0-0.9 [facility] Comment on above: IG% - Immature Granu locytes (promyelocytes, myelocytes and metamyelocytes) > 1% indicates that a LEFT SHIFT is Present. MCH (RBC) [Entitic mass] 34.2 pg 27.0-32.0 [facility] Nucleated RBC/100 WBC (Bld) [Ratio] 0.6 % 0-5 [facility] Laboratory - Microbiology an d Antimicrobial susceptibilityOrdered By: Dr. Dukes on 05-19-2022 Respiratory pathogens DNA and RNA 12b panel SANDOVAL+probe (Unsp spec) [facility] MCHC Auto (RBC) [Mass/Vol]Or dered By: Dr. Dukes on 05-19-2022 MCHC (RBC) [Mass/Vol] 32.8 g/dL 32-36 [facility] Macrocytes detectionOrdered By: Dr. Dukes on 05-19-2022 Macrocytes Ql (Bld) 1+ [facility] No Panel InformationOrdered By: Dr. Dukes on 05-19-2022 Thyroid Stimulating Hormone (TSH) 1.31 uIU/mL 0.358-3.74 [facility] Ovalocyte detectionOrdered B y: Dr. Dukes on 05-19-2022 Ovalocytes LM Ql (Bld) RARE [facility] Platelets bldOrdered By: Dr. Dukes on 05-19-2022 Platelets (Bld) [#/Vol] 173 10*3/uL 150-450 [facility] Serum or plasma albumin cory urement (mass/volume)Ordered By: Dr. Dukes on 05-19-2022 Albumin [Mass/Vol] 3.0 g/dL 3.2-5.0 [facility] Serum or plasma albumin/glob ulin mass ratioOrdered By: Dr. Dukes on 05-19-2022 Albumin/Globulin [Mass ratio] 0.9 {ratio} 0.9-2.4 [facility] Thin prep Papanicolaou smear with manual screeningOrdered By: Dr. Dukes on 05-19-2022 Thin prep Papanicolaou smear with manual screening 38 U/L 15-37 [facility] Absolute lymphocyte countOrd ered By: Dr. Banda on 05-18-2022 Lymphocytes Auto (Unsp spec) [#/Vol] 0.87 10*3/uL 0.83-4.51 [facility] Basophil percentageOrdered B y: Dr. Banda on 05-18-2022 Basophils/100 WBC (Bld) 0.5 % 0-1 [facility] Chloride [Moles/Vol] 105 mmol/L 98-107 [facility] Eosinophils/100 WBC (Bld) 0.2 % 0-5 [facility] Glucose [Mass/Vol] 124 mg/dL 74-106 [facility] Comment on above: Fasting Glucose resu lt from 100 to 125 mg/dL suggests IMPAIRED HOMEOSTASIS per A.D.A. criteria. Neutrophils (Bld) [#/Vol] 5.3 10*3/uL 2.0-7.7 [facility] Neutrophils/100 WBC (Bld) 80.8 % 47-70 [facility] Potassium [Moles/Vol] 3.8 mmol/L 3.5-5.1 [facility] Comment on above: Slight Hemolysis, Re sult may be falsely increased. Sodium [Moles/Vol] 143 mmol/L 136-145 [facility] WBC (Bld) [#/Vol] 6.6 10*3/uL 4.4-11.0 [facility] Blood erythrocytes count (nu mber/volume)Ordered By: Dr. Banda on 05-18-2022 RBC (Bld) [#/Vol] 4.33 10*6/uL 4.6-6.2 [facility] Blood hemoglobin measurement (mass/volume)Ordered By: Dr. Banda on 05-18-2022 Hemoglobin (Bld) [Mass/Vol] 14.6 g/dL 13.0-16.5 [facility] Blood lymphocytes/100 leukoc ytesOrdered By: Dr. Banda on 05-18-2022 Lymphocytes/100 WBC (Bld) 13.3 % 19-41 [facility] Blood monocytes/100 leukocyt esOrdered By: Dr. Banda on 05-18-2022 Monocytes/100 WBC (Bld) 4.9 % 0-10 [facility] Blood platelet adequacy dete ction by light microscopyOrdered By: Dr. Banda on 05-18-2022 Platelets LM Ql (Bld) SLT DEC ADEQ [facility] Blood platelet mean volumeOr dered By: Dr. Banda on 05-18-2022 Platelet mean volume (Bld) [Entitic vol] 10.3 fL 6.2-12.0 [facility] CNPNon 05-18-2022 CNPN Telephone (CARMOB) ----- YERFI YANEZ ([id number]) 1965 M [facility] Date Time Provider Department 05/18/22 SAYRA TELLO During your visit today, we recorded the following information about you: Abbey Nash 05/18/2022 8:28 AM Signed Received a records request from [facility]. Will pull and fax records. Abbey Nash 05/18/2022 10:51 AM Signed Faxed records to [facility] at [phone] Allergies As of Date: 05/18/2022 Noted Allergy [...] by this patient by: SPOUSE Safia Carr, RP Problem List As Of Date 05/18/2022 Noted [...] Encounter Status:Closed by ABBEY NASH on 05/18/22 [facility] COVID-19 virus antigen assay Ordered By: Dr. Dukes on 05-18-2022 SARS-CoV-2 (COVID-19) Ag IA.rapid Ql (Resp) Not detected Not Detect [facility] Comment on above: Normal Reference Ran ge: [...] (RBC) [Entitic vol] 102.1 fL 80-94 [facility] Hematocrit Auto (Bld) [Volum e fraction]Ordered By: Dr. Banda on 05-18-2022 Hematocrit (Bld) [Volume fraction] 44.2 % 40-54 [facility] INR in Blood by Coagulation assayOrdered By: Dr. Banda on 05-18-2022 INR Coag (Bld) [Relative time] 2.8 {INR} [facility] Laboratory - Chemistry and C hemistry - challengeOrdered By: Dr. Banda on 05-18-2022 CO2 [Moles/Vol] 31.0 mmol/L 21.0-32.0 [facility] Natriuretic peptide B (Bld) [Mass/Vol] 343.5 pg/mL 0-100 [facility] Urea nitrogen/Creatinine [Mass ratio] 11.5 mg/mg 10-20 [facility] Laboratory - CoagulationOrde red By: Dr. Banda on 05-18-2022 PT Coag (PPP) [Time] 28.9 s 11.7-14.9 [facility] Laboratory - Hematology and Cell countsOrdered By: Dr. Banda on 05-18-2022 Anisocytosis Ql (Bld) 2+ [facility] Erythrocyte distribution width (RBC) [Entitic vol] 74.1 fL 35.1-43.9 [facility] Erythrocyte distribution width (RBC) [Ratio] 19.4 % 11.6-14.6 [facility] Immature granulocytes/100 WBC (Bld) 0.300 % 0.0-0.9 [facility] Comment on above: IG% - Immature Granu locytes (promyelocytes, myelocytes and metamyelocytes) > 1% indicates that a LEFT SHIFT is Present. MCH (RBC) [Entitic mass] 33.7 pg 27.0-32.0 [facility] Nucleated RBC/100 WBC (Bld) [Ratio] 0.6 % 0-5 [facility] Laboratory - Microbiology an d Antimicrobial susceptibilityOrdered By: Alicia Dukes on 05-18-2022 Respiratory pathogens DNA and RNA 12b panel SANDOVAL+probe (Unsp spec) [facility] MCHC Auto (RBC) [Mass/Vol]Or dered By: Dr. Banda on 05-18-2022 MCHC (RBC) [Mass/Vol] 33.0 g/dL 32-36 [facility] No Panel InformationOrdered By: Dr. Banda on 05-18-2022 Estimated Creatinine Clearance Calc 54.62 ml/min [facility] Estimated GFR (MDRD) Amer 59 mL/min >60 [facility] Comment on above: GFR Calc Estimated GFR (MDRD) Non-Af Amer 48 mL/min >60 [facility] Comment on above: Non- GFR Calc Troponin I High Sensitivity 73 pg/mL 3.0-78.0 [facility] Comment on above: Please Note: New [place] t Units and Gender Specific Reference Ranges. For more information see Policy Stat Procedure [place] High Sensitivity Troponin (TNIH) and attachments. Ovalocyte detectionOrdered B y: Dr. Banda on 05-18-2022 Ovalocytes LM Ql (Bld) 1+ [facility] Platelets bldOrdered By: Dr. Banda on 05-18-2022 Platelets (Bld) [#/Vol] 183 10*3/uL 150-450 [facility] Serum or plasma calcium cory urement (mass/volume)Ordered By: Dr. Banda on 05-18-2022 Calcium [Mass/Vol] 9.2 mg/dL 8.5-10.1 [facility] Serum or plasma creatinine m easurement (mass/volume)Ordered By: Dr. Banda on 05-18-2022 Creatinine [Mass/Vol] 1.57 mg/dL 0.70-1.30 [facility] Comment on above: The validity of the calculated GFR & GFRAA in patients over 70 years has not been determined. Clinical correlation is essential. Serum or plasma urea nitroge n measurement (mass/volume)Ordered By: Dr. Banda on 05-18-2022 Urea nitrogen [Mass/Vol] 18 mg/dL 7-18 [facility] Thin prep Papanicolaou smear with manual screeningOrdered By: Dr. Banda on 05-18-2022 Thin prep Papanicolaou smear with manual screening 7 5-15 [facility] Basophil percentageOrdered B y: Dr. Chiu on 04-16-2022 Chloride [Moles/Vol] 105 mmol/L 98-107 [facility] Glucose [Mass/Vol] 110 mg/dL 74-106 [facility] Comment on above: Fasting Glucose resu lt from 100 to 125 mg/dL suggests IMPAIRED HOMEOSTASIS per A.D.A. criteria. Potassium [Moles/Vol] 3.7 mmol/L 3.5-5.1 [facility] Sodium [Moles/Vol] 141 mmol/L 136-145 [facility] INR in Blood by Coagulation assayOrdered By: Dr. Camacho on 04-16-2022 INR Coag (Bld) [Relative time] 2.1 {INR} [facility] Laboratory - Chemistry and C hemistry - challengeOrdered By: Dr. Chiu on 04-16-2022 CO2 [Moles/Vol] 31.0 mmol/L 21.0-32.0 [facility] Urea nitrogen/Creatinine [Mass ratio] 17.2 mg/mg 10-20 [facility] Laboratory - CoagulationOrde red By: Dr. Camacho on 04-16-2022 PT Coag (PPP) [Time] 23.6 s 11.7-14.9 [facility] No Panel InformationOrdered By: Dr. Chiu on 04-16-2022 Estimated Creatinine Clearance Calc 49.19 ml/min [facility] Estimated GFR (MDRD) Amer 54 mL/min >60 [facility] Comment on above: GFR Calc Estimated GFR (MDRD) Non-Af Amer 45 mL/min >60 [facility] Comment on above: Non- GFR Calc Serum or plasma calcium cory urement (mass/volume)Ordered By: Dr. Chiu on 04-16-2022 Calcium [Mass/Vol] 9.0 mg/dL 8.5-10.1 [facility] Serum or plasma creatinine m easurement (mass/volume)Ordered By: Dr. Chiu on 04-16-2022 Creatinine [Mass/Vol] 1.69 mg/dL 0.70-1.30 [facility] Comment on above: The validity of the calculated GFR & GFRAA in patients over 70 years has not been determined. Clinical correlation is essential. Serum or plasma urea nitroge n measurement (mass/volume)Ordered By: Dr. Chiu on 04-16-2022 Urea nitrogen [Mass/Vol] 29 mg/dL 7-18 [facility] Thin prep Papanicolaou smear with manual screeningOrdered By: Dr. Chiu on 04-16-2022 Thin prep Papanicolaou smear with manual screening 5 5-15 [facility] Absolute lymphocyte countOrd ered By: Dr. Chiu on 04-15-2022 Lymphocytes Auto (Unsp spec) [#/Vol] 0.77 10*3/uL 0.83-4.51 [facility] Basophil percentageOrdered B y: Dr. Chiu on 04-15-2022 Basophil percentage 3.9 mg/dL 2.5-4.9 [facility] Basophils/100 WBC (Bld) 0.6 % 0-1 [facility] Cholesterol [Mass/Vol] 190 mg/dL <200 [facility] Comment on above: <200 mg/dL Desirable 200-240 mg/dL Borderline >240 mg/dL High Risk Eosinophils/100 WBC (Bld) 0.4 % 0-5 [facility] Neutrophils (Bld) [#/Vol] 3.8 10*3/uL 2.0-7.7 [facility] Neutrophils/100 WBC (Bld) 74.5 % 47-70 [facility] Triglyceride [Mass/Vol] 159 mg/dL <199 [facility] Comment on above: The drugs N-Acetylcy steine and Metamizole may falsely depress this assay.Serum Triglycerides Reference Interval Normal <150 mg/dL Borderline high 150 - 199 mg/dL High 200 - 499 mg/dL Very High > or = 500 mg/dL WBC (Bld) [#/Vol] 5.1 10*3/uL 4.4-11.0 [facility] Blood erythrocytes count (nu mber/volume)Ordered By: Dr. Chiu on 04-15-2022 RBC (Bld) [#/Vol] 3.92 10*6/uL 4.6-6.2 [facility] Blood hemoglobin measurement (mass/volume)Ordered By: Dr. Chiu on 04-15-2022 Hemoglobin (Bld) [Mass/Vol] 12.6 g/dL 13.0-16.5 [facility] Blood lymphocytes/100 leukoc ytesOrdered By: Dr. Chiu on 04-15-2022 Lymphocytes/100 WBC (Bld) 15.1 % 19-41 [facility] Blood monocytes/100 leukocyt esOrdered By: Dr. Chiu on 04-15-2022 Monocytes/100 WBC (Bld) 8.4 % 0-10 [facility] Blood platelet mean volumeOr dered By: Dr. Chiu on 04-15-2022 Platelet mean volume (Bld) [Entitic vol] 11.1 fL 6.2-12.0 [facility] Determination of erythrocyte mean corpuscular volume (MCV)Ordered By: Dr. Chiu on 04-15-2022 MCV (RBC) [Entitic vol] 98.2 fL 80-94 [facility] Hematocrit Auto (Bld) [Volum e fraction]Ordered By: Dr. Chiu on 04-15-2022 Hematocrit (Bld) [Volume fraction] 38.5 % 40-54 [facility] Laboratory - Chemistry and C hemistry - challengeOrdered By: Dr. Chiu on 04-15-2022 Magnesium [Mass/Vol] 2.1 mg/dL 1.6-2.6 [facility] Comment on above: Moderate Hemolysis, Result may be falsely increased. Laboratory - Hematology and Cell countsOrdered By: Dr. Chiu on 04-15-2022 Anisocytosis Ql (Bld) 2+ [facility] Erythrocyte distribution width (RBC) [Entitic vol] 73.5 fL 35.1-43.9 [facility] Erythrocyte distribution width (RBC) [Ratio] 20.7 % 11.6-14.6 [facility] Immature granulocytes/100 WBC (Bld) 1.000 % 0.0-0.9 [facility] Comment on above: IG% - Immature Granu locytes (promyelocytes, myelocytes and metamyelocytes) > 1% indicates that a LEFT SHIFT is Present. MCH (RBC) [Entitic mass] 32.1 pg 27.0-32.0 [facility] Nucleated RBC/100 WBC (Bld) [Ratio] 5.7 % 0-5 [facility] MCHC Auto (RBC) [Mass/Vol]Or dered By: Dr. Chiu on 04-15-2022 MCHC (RBC) [Mass/Vol] 32.7 g/dL 32-36 [facility] Macrocytes detectionOrdered By: Dr. Chiu on 04-15-2022 Macrocytes Ql (Bld) 1+ [facility] Platelets bldOrdered By: Dr. Chiu on 04-15-2022 Platelets (Bld) [#/Vol] 212 10*3/uL 150-450 [facility] Serum or plasma cholesterol in HDL measurement (mass/volume)Ordered By: Dr. Chiu on 04-15-2022 Cholesterol in HDL [Mass/Vol] 39 mg/dL >40 [facility] Comment on above: The drugs N-Acetylcy steine and Metamizole may falsely depress this assay. Reference Range HDL <40 mg/dL Low HDL Cholesterol HDL >or= 60 mg/dL High HDL Cholesterol Serum or plasma cholesterol in VLDL measurement (mass/volume)Ordered By: Dr. Chiu on 04-15-2022 Cholesterol in VLDL [Mass/Vol] 32 mg/dL 5-40 [facility] Serum or plasma low density lipoprotein (LDL) cholesterol measurement (mass/volume)Ordered By: Dr. Chiu on 04-15-2022 Cholesterol in LDL [Mass/Vol] 119 mg/dL 0-130 [facility] Basophil percentageOrdered B y: Dr. Camacho on 04-14-2022 Bilirubin [Mass/Vol] 1.20 mg/dL 0.20-1.00 [facility] Comment on above: For patients on eltr ombopag therapy, use of Dimension [place] TBIL is not recommended. Protein [Mass/Vol] 6.5 g/dL 6.4-8.2 [facility] Blood manual differential co mment interpretation (narrative result)Ordered By: Dr. Camacho on 04-14-2022 Manual differential comment Piyush (Bld) [Interp] SCANNED [facility] Laboratory - Chemistry and C hemistry - challengeOrdered By: Dr. Camacho on 04-14-2022 ALP [Catalytic activity/Vol] 75 U/L 45-117 [facility] ALT [Catalytic activity/Vol] 46 U/L 16-61 [facility] Globulin (S) [Mass/Vol] 3.7 g/dL 2.2-4.2 [facility] No Panel InformationOrdered By: Dr. Camacho on 04-14-2022 Troponin I High Sensitivity 121 pg/mL 3.0-78.0 [facility] Comment on above: Critical Result(s) C alled at: 04:02:32 04/14/2022 by: CHERI Callahan RN ICU. Results read back by same. Please Note: New Test Units and Gender Specific Reference Ranges. For more information see Policy Stat Procedure [place] High Sensitivity Troponin (TNIH) and attachments. No Panel InformationOrdered By: ED PROVIDER on 04-14-2022 Troponin I High Sensitivity 133 pg/mL 3.0-78.0 [facility] Comment on above: Critical Result(s) C alled at: 00:45:24 04/14/2022 by: Mello KAUFFMAN RN (ED) Results read back by same. Please Note: New Test Units and Gender Specific Reference Ranges. For more information see Policy Stat Procedure [place] High Sensitivity Troponin (TNIH) and attachments. Serum or plasma albumin cory urement (mass/volume)Ordered By: Dr. Camacho on 04-14-2022 Albumin [Mass/Vol] 2.8 g/dL 3.2-5.0 [facility] Serum or plasma albumin/glob ulin mass ratioOrdered By: Dr. Camacho on 04-14-2022 Albumin/Globulin [Mass ratio] 0.8 {ratio} 0.9-2.4 [facility] Thin prep Papanicolaou smear with manual screeningOrdered By: Dr. Camacho on 04-14-2022 Thin prep Papanicolaou smear with manual screening 37 U/L 15-37 [facility] Absolute lymphocyte countOrd ered By: ED PROVIDER on 04-13-2022 Lymphocytes Auto (Unsp spec) [#/Vol] 0.72 10*3/uL 0.83-4.51 [facility] Absolute lymphocyte countOrd ered By: Dr. Turner on 04-13-2022 Lymphocytes Auto (Unsp spec) [#/Vol] 0.85 10*3/uL 0.83-4.51 [facility] Basophil percentageOrdered B y: ED PROVIDER on 04-13-2022 Basophils/100 WBC (Bld) 0.4 % 0-1 [facility] Chloride [Moles/Vol] 111 mmol/L 98-107 [facility] Eosinophils/100 WBC (Bld) 0.0 % 0-5 [facility] Glucose [Mass/Vol] 125 mg/dL 74-106 [facility] Comment on above: Fasting Glucose resu lt from 100 to 125 mg/dL suggests IMPAIRED HOMEOSTASIS per A.D.A. criteria. Neutrophils (Bld) [#/Vol] 4.5 10*3/uL 2.0-7.7 [facility] Neutrophils/100 WBC (Bld) 79.4 % 47-70 [facility] Potassium [Moles/Vol] 3.7 mmol/L 3.5-5.1 [facility] Sodium [Moles/Vol] 143 mmol/L 136-145 [facility] WBC (Bld) [#/Vol] 5.7 10*3/uL 4.4-11.0 [facility] Basophil percentageOrdered B y: Dr. Turner on 04-13-2022 Basophils/100 WBC (Bld) 0.3 % 0-1 [facility] Bilirubin [Mass/Vol] 1.80 mg/dL 0.20-1.00 [facility] Comment on above: For patients on eltr ombopag therapy, use of Dimension [place] TBIL is not recommended. Chloride [Moles/Vol] 108 mmol/L 98-107 [facility] Eosinophils/100 WBC (Bld) 0.3 % 0-5 [facility] Glucose [Mass/Vol] 108 mg/dL 74-106 [facility] Comment on above: Fasting Glucose resu lt from 100 to 125 mg/dL suggests IMPAIRED HOMEOSTASIS per A.D.A. criteria. Neutrophils (Bld) [#/Vol] 5.0 10*3/uL 2.0-7.7 [facility] Neutrophils/100 WBC (Bld) 78.6 % 47-70 [facility] Potassium [Moles/Vol] 3.5 mmol/L 3.5-5.1 [facility] Protein [Mass/Vol] 7.4 g/dL 6.4-8.2 [facility] Sodium [Moles/Vol] 143 mmol/L 136-145 [facility] WBC (Bld) [#/Vol] 6.4 10*3/uL 4.4-11.0 [facility] Blood erythrocytes count (nu mber/volume)Ordered By: ED PROVIDER on 04-13-2022 RBC (Bld) [#/Vol] 4.03 10*6/uL 4.6-6.2 [facility] Blood erythrocytes count (nu mber/volume)Ordered By: Dr. Turner on 04-13-2022 RBC (Bld) [#/Vol] 4.35 10*6/uL 4.6-6.2 [facility] Blood hemoglobin measurement (mass/volume)Ordered By: ED PROVIDER on 04-13-2022 Hemoglobin (Bld) [Mass/Vol] 12.8 g/dL 13.0-16.5 [facility] Blood hemoglobin measurement (mass/volume)Ordered By: Dr. Turner on 04-13-2022 Hemoglobin (Bld) [Mass/Vol] 13.9 g/dL 13.0-16.5 [facility] Blood lymphocytes/100 leukoc ytesOrdered By: ED PROVIDER on 04-13-2022 Lymphocytes/100 WBC (Bld) 12.7 % 19-41 [facility] Blood lymphocytes/100 leukoc ytesOrdered By: Dr. Turner on 04-13-2022 Lymphocytes/100 WBC (Bld) 13.3 % 19-41 [facility] Blood manual differential co mment interpretation (narrative result)Ordered By: ED PROVIDER on 04-13-2022 Manual differential comment Piyush (Bld) [Interp] SCANNED [facility] Comment on above: 1+ [facility] Blood manual differential co mment interpretation (narrative result)Ordered By: Dr. Turner on 04-13-2022 Manual differential comment Piyush (Bld) [Interp] SCANNED [facility] Comment on above: 1+ [facility] Blood monocytes/100 leukocyt esOrdered By: ED PROVIDER on 04-13-2022 Monocytes/100 WBC (Bld) 7.1 % 0-10 [facility] Blood monocytes/100 leukocyt esOrdered By: Dr. Turner on 04-13-2022 Monocytes/100 WBC (Bld) 7.0 % 0-10 [facility] Blood platelet mean volumeOr dered By: ED PROVIDER on 04-13-2022 Platelet mean volume (Bld) [Entitic vol] 10.8 fL 6.2-12.0 [facility] Blood platelet mean volumeOr dered By: Dr. Turner on 04-13-2022 Platelet mean volume (Bld) [Entitic vol] 11.7 fL 6.2-12.0 [facility] Determination of erythrocyte mean corpuscular volume (MCV)Ordered By: ED PROVIDER on 04-13-2022 MCV (RBC) [Entitic vol] 94.8 fL 80-94 [facility] Determination of erythrocyte mean corpuscular volume (MCV)Ordered By: Dr. Turner on 04-13-2022 MCV (RBC) [Entitic vol] 97.2 fL 80-94 [facility] Hematocrit Auto (Bld) [Volum e fraction]Ordered By: ED PROVIDER on 04-13-2022 Hematocrit (Bld) [Volume fraction] 38.2 % 40-54 [facility] Hematocrit Auto (Bld) [Volum e fraction]Ordered By: Dr. Turner on 04-13-2022 Hematocrit (Bld) [Volume fraction] 42.3 % 40-54 [facility] INR in Blood by Coagulation assayOrdered By: Dr. Dunn on 04-13-2022 INR Coag (Bld) [Relative time] 1.9 {INR} [facility] Laboratory - Chemistry and C hemistry - challengeOrdered By: ED PROVIDER on 04-13-2022 CO2 [Moles/Vol] 25.0 mmol/L 21.0-32.0 [facility] Urea nitrogen/Creatinine [Mass ratio] 7.7 mg/mg 10-20 [facility] Laboratory - Chemistry and C hemistry - challengeOrdered By: Dr. Turner on 04-13-2022 Natriuretic peptide B (Bld) [Mass/Vol] 699.0 pg/mL 0-100 [facility] ALP [Catalytic activity/Vol] 83 U/L 45-117 [facility] ALT [Catalytic activity/Vol] 48 U/L 16-61 [facility] CO2 [Moles/Vol] 27.0 mmol/L 21.0-32.0 [facility] Globulin (S) [Mass/Vol] 4.0 g/dL 2.2-4.2 [facility] Urea nitrogen/Creatinine [Mass ratio] 7.3 mg/mg 10-20 [facility] Laboratory - CoagulationOrde red By: Dr. Dunn on 04-13-2022 PT Coag (PPP) [Time] 21.7 s 11.7-14.9 [facility] Laboratory - Hematology and Cell countsOrdered By: ED PROVIDER on 04-13-2022 Erythrocyte distribution width (RBC) [Entitic vol] 69.1 fL 35.1-43.9 [facility] Erythrocyte distribution width (RBC) [Ratio] 20.2 % 11.6-14.6 [facility] Immature granulocytes/100 WBC (Bld) 0.400 % 0.0-0.9 [facility] Comment on above: IG% - Immature Granu locytes (promyelocytes, myelocytes and metamyelocytes) > 1% indicates that a LEFT SHIFT is Present. MCH (RBC) [Entitic mass] 31.8 pg 27.0-32.0 [facility] Nucleated RBC/100 WBC (Bld) [Ratio] 1.8 % 0-5 [facility] Laboratory - Hematology and Cell countsOrdered By: Dr. Turner on 04-13-2022 Erythrocyte distribution width (RBC) [Entitic vol] 71.7 fL 35.1-43.9 [facility] Erythrocyte distribution width (RBC) [Ratio] 20.5 % 11.6-14.6 [facility] Immature granulocytes/100 WBC (Bld) 0.500 % 0.0-0.9 [facility] Comment on above: IG% - Immature Granu locytes (promyelocytes, myelocytes and metamyelocytes) > 1% indicates that a LEFT SHIFT is Present. MCH (RBC) [Entitic mass] 32.0 pg 27.0-32.0 [facility] Nucleated RBC/100 WBC (Bld) [Ratio] 1.1 % 0-5 [facility] MCHC Auto (RBC) [Mass/Vol]Or dered By: ED PROVIDER on 04-13-2022 MCHC (RBC) [Mass/Vol] 33.5 g/dL 32-36 [facility] MCHC Auto (RBC) [Mass/Vol]Or dered By: Dr. Turner on 04-13-2022 MCHC (RBC) [Mass/Vol] 32.9 g/dL 32-36 [facility] No Panel InformationOrdered By: ED PROVIDER on 04-13-2022 Estimated Creatinine Clearance Calc 44.21 ml/min [facility] Estimated GFR (MDRD) Amer 46 mL/min >60 [facility] Comment on above: GFR Calc Estimated GFR (MDRD) Non-Af Amer 38 mL/min >60 [facility] Comment on above: Non- GFR Calc No Panel InformationOrdered By: Dr. Turner on 04-13-2022 Estimated GFR (MDRD) Amer 46 mL/min >60 [facility] Comment on above: GFR Calc Estimated GFR (MDRD) Non-Af Amer 38 mL/min >60 [facility] Comment on above: Non- GFR Calc Troponin I High Sensitivity 118 pg/mL 3.0-78.0 [facility] Comment on above: Please Note: New [place] t Units and Gender Specific Reference Ranges. For more information see Policy Stat Procedure [place] High Sensitivity Troponin (TNIH) and attachments. Platelets bldOrdered By: ED PROVIDER on 04-13-2022 Platelets (Bld) [#/Vol] 197 10*3/uL 150-450 [facility] Platelets bldOrdered By: Dr. Turner on 04-13-2022 Platelets (Bld) [#/Vol] 222 10*3/uL 150-450 [facility] Serum or plasma albumin cory urement (mass/volume)Ordered By: Dr. Turner on 04-13-2022 Albumin [Mass/Vol] 3.4 g/dL 3.2-5.0 [facility] Serum or plasma albumin/glob ulin mass ratioOrdered By: Dr. Turner on 04-13-2022 Albumin/Globulin [Mass ratio] 0.8 {ratio} 0.9-2.4 [facility] Serum or plasma calcium cory urement (mass/volume)Ordered By: ED PROVIDER on 04-13-2022 Calcium [Mass/Vol] 9.0 mg/dL 8.5-10.1 [facility] Serum or plasma calcium cory urement (mass/volume)Ordered By: Dr. Turner on 04-13-2022 Calcium [Mass/Vol] 9.4 mg/dL 8.5-10.1 [facility] Serum or plasma creatinine m easurement (mass/volume)Ordered By: ED PROVIDER on 04-13-2022 Creatinine [Mass/Vol] 1.94 mg/dL 0.70-1.30 [facility] Comment on above: The validity of the calculated GFR & GFRAA in patients over 70 years has not been determined. Clinical correlation is essential. Serum or plasma creatinine m easurement (mass/volume)Ordered By: Dr. Turner on 04-13-2022 Creatinine [Mass/Vol] 1.93 mg/dL 0.70-1.30 [facility] Comment on above: The validity of the calculated GFR & GFRAA in patients over 70 years has not been determined. Clinical correlation is essential. Serum or plasma urea nitroge n measurement (mass/volume)Ordered By: ED PROVIDER on 04-13-2022 Urea nitrogen [Mass/Vol] 15 mg/dL 09-22 [facility] Serum or plasma urea nitroge n measurement (mass/volume)Ordered By: Dr. Turner on 04-13-2022 Urea nitrogen [Mass/Vol] 14 mg/dL 09-22 [facility] Thin prep Papanicolaou smear with manual screeningOrdered By: ED PROVIDER on 04-13-2022 Thin prep Papanicolaou smear with manual screening 7 - [facility] Thin prep Papanicolaou smear with manual screeningOrdered By: Dr. Turner on 04-13-2022 Thin prep Papanicolaou smear with manual screening 41 U/L 15-37 [facility] Thin prep Papanicolaou smear with manual screening 8 5-15 [facility] CBC W Auto Differential pane l (Bld)on 04-09-2022 Basophils (Bld) [#/Vol] 10*3/uL Normal <0.11 [facility] Comment on above: Order Comment: Speci men Type: BLOOD SPECIMENOrdering Facility: [facility] Address: [address] [address] Performed By: #### 5 7021-8 ####[facility]CL[facility] [id number] [place] [address] [place] Basophils/100 WBC (Bld) 0.3 % Normal [facility] Comment on above: Order Comment: Speci men Type: BLOOD SPECIMENOrdering Facility: [facility] Address: [address] [place] [address] Performed By: #### 5 7021-8 ####[facility] [id number] [place] [address] [place] Differential cell count method Nom (Bld) Auto Normal [facility] Comment on above: Order Comment: Speci men Type: BLOOD SPECIMENOrdering Facility: [facility] Address: [address] [place] [address] Performed By: #### 5 7021-8 ####[facility] [id number] [place] [address] [place] Eosinophils (Bld) [#/Vol] 0.04 10*3/uL Normal <0.46 [facility] Comment on above: Order Comment: Speci men Type: BLOOD SPECIMENOrdering Facility: [facility] Address: [address] [address] Performed By: #### 5 7021-8 ####[facility] [id number] [place] [address] [place] Eosinophils/100 WBC (Bld) 0.7 % Normal [facility] Comment on above: Order Comment: Speci men Type: BLOOD SPECIMENOrdering Facility: [facility] Address: [address] [place] [address] Performed By: #### 5 7021-8 ####[facility] [id number] [address] [place] Erythrocyte distribution width (RBC) [Ratio] 19.2 % High 11.5-15.0 [facility] Comment on above: Order Comment: Speci men Type: BLOOD SPECIMENOrdering Facility: [facility] Address: [address] [place] [address] Performed By: #### 5 7021-8 ####[facility] [id number] [address] [place] Hematocrit (Bld) [Volume fraction] 42.1 % Normal 39.0-51.0 [facility] Comment on above: Order Comment: Speci men Type: BLOOD SPECIMENOrdering Facility: [facility] Address: [address] [place] [address] Performed By: #### 5 7021-8 ####[facility] LABCLIA [id number] [address] [place] Hemoglobin (Bld) [Mass/Vol] 14.5 g/dL Normal 13.0-17.0 [facility] Comment on above: Order Comment: Speci men Type: BLOOD SPECIMENOrdering Facility: [facility] Address: [address] [place] [address] Performed By: #### 5 7021-8 ####[facility] LABCLIA [id number] [place] [address] [place] Immature granulocytes (Bld) [#/Vol] 0.03 10*3/uL Normal <0.10 [facility] Comment on above: Order Comment: Speci men Type: BLOOD SPECIMENOrdering Facility: [facility] Address: [address] [place] [address] Performed By: #### 5 7021-8 ####[facility] LABCLIA [id number] [place] [address] [place] Immature granulocytes/100 WBC (Bld) 0.5 % Normal [facility] Comment on above: Order Comment: Speci men Type: BLOOD SPECIMENOrdering Facility: [facility] Address: [address] [place] [address] Performed By: #### 5 7021-8 ####[facility] LABCLIA [id number] [address] OF [place] Lymphocytes (Bld) [#/Vol] 1.09 10*3/uL Normal 1.00-4.00 [facility] Comment on above: Order Comment: Speci men Type: BLOOD SPECIMENOrdering Facility: [facility] Address: [address] [place] [address] Performed By: #### 5 7021-8 ####[facility] LABCLIA [id number] [address] [place] Lymphocytes/100 WBC (Bld) 18.7 % Normal [facility] Comment on above: Order Comment: Speci men Type: BLOOD SPECIMENOrdering Facility: [facility] Address: [address] [place] [address] Performed By: #### 5 7021-8 ####[facility] LABCLIA [id number] [place] [address] [place] MCH (RBC) [Entitic mass] 32.2 pg Normal 26.0-34.0 [facility] Comment on above: Order Comment: Speci men Type: BLOOD SPECIMENOrdering Facility: [facility] Address: [address] [place], [place] [address] Performed By: #### 5 7021-8 ####[facility] LABCLIA [id number] [address] [place] MCHC (RBC) [Mass/Vol] 34.4 g/dL Normal 30.5-36.0 [facility] Comment on above: Order Comment: Speci men Type: BLOOD SPECIMENOrdering Facility: [facility] Address: [address] [place], [place] [address] Performed By: #### 5 7021-8 ####[facility] LABCLIA [id number] [place] [address] [place] MCV (RBC) [Entitic vol] 93.3 fL Normal 80.0-100.0 [facility] Comment on above: Order Comment: Speci men Type: BLOOD SPECIMENOrdering Facility: [facility] Address: [address] [place] [address] Performed By: #### 5 7021-8 ####[facility] LABCLIA [id number] [place] [address] [place] Monocytes (Bld) [#/Vol] 0.45 10*3/uL Normal <0.87 [facility] Comment on above: Order Comment: Speci men Type: BLOOD SPECIMENOrdering Facility: [facility] Address: [address] [place] [address] Performed By: #### 5 7021-8 ####[facility] LABCLIA [id number] [place] [address] [place] Monocytes/100 WBC (Bld) 7.7 % Normal [facility] Comment on above: Order Comment: Speci men Type: BLOOD SPECIMENOrdering Facility: [facility] Address: [address] [place] [address] Performed By: #### 5 7021-8 ####[facility] LABCLIA [id number] [place] [address] [place] Neutrophils (Bld) [#/Vol] 4.20 10*3/uL Normal 1.45-7.50 [facility] Comment on above: Order Comment: Speci men Type: BLOOD SPECIMENOrdering Facility: [facility] Address: [address] [place] [address] Performed By: #### 5 7021-8 ####[facility] LABCLIA [id number] [place] [address] [place] Neutrophils/100 WBC (Bld) 72.1 % Normal [facility] Comment on above: Order Comment: Speci men Type: BLOOD SPECIMENOrdering Facility: [facility] Address: [address] Performed By: #### 5 7021-8 ####[facility] LABCLIA [id number] [address] [place] Platelet mean volume (Bld) [Entitic vol] 10.4 fL Normal 9.0-12.7 [facility] Comment on above: Order Comment: Speci men Type: BLOOD SPECIMENOrdering Facility: [facility] Address: [address] Performed By: #### 5 7021-8 ####[facility] LABCLIA [id number] [place] [address] [place] Platelets (Bld) [#/Vol] 219 10*3/uL Normal 150-400 [facility] Comment on above: Order Comment: Speci men Type: BLOOD SPECIMENOrdering Facility: [facility] Address: [address] [place], [place] [address] Performed By: #### 5 7021-8 ####[facility] LABCLIA [id number] [place] [address] [place] RBC (Bld) [#/Vol] 4.51 10*6/uL Normal 4.20-6.00 [facility] Comment on above: Order Comment: Speci men Type: BLOOD SPECIMENOrdering Facility: [facility] Address: [address] Performed By: #### 5 7021-8 ####[facility] LABCLIA [id number] [place] [address] [place] WBC (Bld) [#/Vol] 5.83 10*3/uL Normal 3.70-11.00 [facility] Comment on above: Order Comment: Speci men Type: BLOOD SPECIMENOrdering Facility: [facility] Address: [address] [place], [place] [address] Performed By: #### 5 7021-8 ####[facility] LABCLIA [id number] [facility] [address] [place] [address] [place] CNOVSPon 04-09-2022 CNOVSP Visit (SP) Office ([facility]) ----- YEFRI YANEZ ([id number]) 1965 M [facility] Date Time Provider Department 04/09/22 11:00 AM HAYLEE WILBURN [facility] During your visit today, we recorded the following information about you: Temperature Pulse Respiration Blood pressure 98.1 degrees 116/minute 16/minute 163/86 Weight 124.3 kg Haylee Wilburn MD 04/09/2022 4:21 PM Signed [facility] Progress Note SERVICE DATE: April 09, 2022 [...] started treatment with cabo + nivo on [facility] 1820 Trial on 08/08/2021 at [facility]. He has baseline HTN and developed worsening HTN after starting treatment. His cabo was held on 08/18/2021, resumed on 09/11/2021. The Nivo was held on 09/11/21 due to pneumonitis, and prednisone 60 mg daily was started and tapered off within about one month. Due to insurance change, he was taken off the trial and referred to [facility]. All treatments were supposed to [...] [facility] in [facility] on 02/06/2022. PATHOLOGY: -Renal cell carcinoma, clear-cell type, 5.3 x 3.0 x 2.7 cm, ISUP nuclear grade 3. -Carcinoma invades renal vein and lurdes-nephritic adipose tissue. -Margins of resection are negative for carcinoma. -Lymphovascular invasion not identified. -Regional lymph nodes not submitted. -[id number]. 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 He denies pain in the chest wall [...] ferrous sulf (more content not included)... Normal [facility] Comprehensive metabolic 2000 panelon 04-09-2022 Albumin [Mass/Vol] 3.5 g/dL Normal 3.2-5.0 [facility] Comment on above: Order Comment: Aaliyah gibson Type: BLOOD SPECIMENOrdering Facility: [facility] Address: [address] [place] [address] Performed By: #### 2 4323-8, 3016-3 ####[facility] LABORATORYCLIA [id number] [place] [address] [place] ALP [Catalytic activity/Vol] 86 U/L Normal 45-117 [facility] Comment on above: Order Comment: Aaliyah gibson Type: BLOOD SPECIMENOrdering Facility: [facility] Address: [address] [place] [address] Performed By: #### 2 4323-8, 3016-3 ####[facility] LABORATORYCLIA [id number] [place] [address] [place] ALT [Catalytic activity/Vol] 45 U/L Normal 13-61 [facility] Comment on above: Order Comment: Speci men Type: BLOOD SPECIMENOrdering Facility: [facility] Address: [address] [address] Result Comment: Resu lts may be falsely depressed after the administration of Sulfasalazine and/or Sulfapyridine. Performed By: #### 2 4323-8, 6-3 ####[facility] LABORATORYCLIA [id number] [address] [place] Anion gap [Moles/Vol] 6 mmol/L Normal 5-16 [facility] Comment on above: Order Comment: Speci men Type: BLOOD SPECIMENOrdering Facility: [facility] Address: [address] [place] [address] Performed By: #### 2 4323-8, 6-3 ####[facility] LABORATORYCLIA [id number] [address] [place] AST [Catalytic activity/Vol] 40 U/L High 8-34 [facility] Comment on above: Order Comment: Speci men Type: BLOOD SPECIMENOrdering Facility: [facility] Address: [address] [address] Result Comment: Resu lts may be falsely depressed after the administration of Sulfasalazine and/or Sulfapyridine. Performed By: #### 2 4323-8, 3016-3 ####[facility] LABORATORYCLIA [id number] [place] [address] [place] Bilirubin [Mass/Vol] 0.5 mg/dL Normal 0.2-1.0 [facility] Comment on above: Order Comment: Speci men Type: BLOOD SPECIMENOrdering Facility: [facility] Address: [address] [place] [address] Performed By: #### 2 4323-8, 3015-3 ####[facility] LABORATORYCLIA [id number] [place] [address] [place] Calcium [Mass/Vol] 9.5 mg/dL Normal 8.5-10.5 [facility] Comment on above: Order Comment: Speci men Type: BLOOD SPECIMENOrdering Facility: [facility] Address: [address] [place] [address] Performed By: #### 2 4323-8, 3015-05 ####[facility] LABORATORYCLIA [id number] [place] [address] [place] Chloride [Moles/Vol] 106 mmol/L Normal 98-107 [facility] Comment on above: Order Comment: Speci men Type: BLOOD SPECIMENOrdering Facility: [facility] Address: [address] [place] [address] Performed By: #### 2 4323-8, 3015-05 ####[facility] LABORATORYCLIA [id number] [place] [address] [place] CO2 [Moles/Vol] 30 mmol/L Normal 21-32 [facility] Comment on above: Order Comment: Speci men Type: BLOOD SPECIMENOrdering Facility: [facility] Address: [address] [place] [address] Performed By: #### 2 4323-8, 3 ####[facility] LABORATORYCLIA [id number] [place] [address] [place] Creatinine [Mass/Vol] 1.57 mg/dL High 0.50-1.40 [facility] Comment on above: Order Comment: Speci men Type: BLOOD SPECIMENOrdering Facility: [facility] Address: [address] [place] [address] Result Comment: Hyun ents receiving either N-Acetylcysteine (NAC) or Metamizole prior to venipuncture, may have falsely depressed results. Performed By: #### 2 4323-8, 3015-3 ####[facility] LABORATORYCLIA [id number] [place] [id number] [place] ESTIMATED GLOMERULAR FILTRATION RATE 51 mL/min/1.73m??? Low >=60 [facility] Comment on above: Order Comment: Aaliyah gibson Type: BLOOD SPECIMENOrdering Facility: [facility] Address: [address] [place] [address] Result Comment: Laurita mated Glomerular Filtration Rate [...] GFR. Performed By: #### 2 4323-8, 6-3 ####[facility] LABORATORYCLIA [id number] [place] [address] [place] Glucose [Mass/Vol] 132 mg/dL High 70-100 [facility] Comment on above: Order Comment: Aaliyah gibson Type: BLOOD SPECIMENOrdering Facility: [facility] Address: [address] [place] [address] Result Comment: The [place] [employer] (ADA) provides guidance for cutoff [...] Standards of Medical Care in Diabetes 2016, [place] [employer]. Diabetes Care. 2016.39(Suppl 1). Results may be falsely elevated after the administration of Sulfapyridine. Results may be falsely depressed after the administration of Sulfasalazine. Performed By: #### 2 4323-8, 6-3 ####[facility] LABORATORYCLIA [id number] [place] [address] [place] Potassium [Moles/Vol] 3.7 mmol/L Normal 3.5-5.1 [facility] Comment on above: Order Comment: Speci men Type: BLOOD SPECIMENOrdering Facility: [facility] Address: [address] [place] [address] Performed By: #### 2 4323-8, 6-3 ####[facility] LABORATORYCLIA [id number] [place] [address] [place] Protein [Mass/Vol] 6.7 g/dL Normal 6.0-8.5 [facility] Comment on above: Order Comment: Speci men Type: BLOOD SPECIMENOrdering Facility: [facility] Address: [address] [place] [address] Performed By: #### 2 4323-8, 3 ####[facility] LABORATORYCLIA [id number] [address] [place] Sodium [Moles/Vol] 142 mmol/L Normal 136-145 [facility] Comment on above: Order Comment: Speci men Type: BLOOD SPECIMENOrdering Facility: [facility] Address: [address] [place] [address] Performed By: #### 2 4323-8, 3 ####[facility] LABORATORYCLIA [id number] [place] [address] [place] Urea nitrogen [Mass/Vol] 17 mg/dL Normal 7-26 [facility] Comment on above: Order Comment: Speci men Type: BLOOD SPECIMENOrdering Facility: [facility] Address: [address] [place] [address] Performed By: #### 2 4323-8, 6-3 ####[facility] LABORATORYCLIA [id number] [place] [address] [place] TSH SerPl-aCncon 04-09-2022 TSH Qn 2.848 m[IU]/L Normal 0.358-3.74 0 [facility] Comment on above: Order Comment: Speci men Type: BLOOD SPECIMENOrdering Facility: [facility] Address: [address], [place] [address] Result Comment: 3rd generation ultra sensitive TSH. Performed By: #### 2 4323-8, 3016-3 ####[facility] LABORATORYCLIA [id number] [place] [address] [place] Office Visit (Urology)on [...] between urology, medical oncology, radiation oncology at [facility] was local therapy to metastatic sites and cytoreductive nephrectomy. 12/08/2021-echo with EF 35%, LV and RV enlargement and hypokinesis 12/26/2021-patient completed radiation to chest wall and L4 lesion Patient has remained on cabo Patient was scheduled for nephrectomy with Dr. Adriana Hodge, due to insurance issues patient could not be operated on at [facility], referred to [facility] for nephrectomy. 01/19/2022-patient scheduled for laparoscopic nephrectomy 02/0301/20/2022-patient presented to [place] ER with shortness of breath 01/27/2022-patient presented to [facility] with persistence of subjective dyspnea, expiratory wheezing 01/29/2022-patient represented to [place] ED with chest tightness and shortness of [...] today -[facility] -Follow-up CT scans per Dr. Wilburn -Labs with Dr. Wilburn as well, renal function was good on discharge from hospital -Follow-up with me in 3 months Chief Complaint Metastatic kidney cancer History of Present [id number] male referred to me for cytoreductive nephrectomy [...] between urology, medical oncology, radiation oncology at [facility] was local therapy to metastatic sites and cytoreductive nephrectomy. 12/08/2021-echo with EF 35%, LV and RV enlargement and hypokinesis 12/26/2021-patient completed radiation to chest wall and L4 lesion Patient has remained on cabo Patient was scheduled for nephrectomy with Dr. Adriana Hodge, due to insurance issues patient could not be operated on at [facility], referred [facility] for neph[facility]. 01/19/2022-patient scheduled for laparoscopic nephrectomy 02/0301/20/2022-patient presented to [place] ER with shortness of breath 01/27/2022-patient presented to [facility] with persistence of subjective dyspnea, expiratory wheezing 01/29/2022-patient represented to [place] ED with chest tightness and shortness of breath. Diagnosed with CHF and pneumonia. He was prescribed cefdinir 300 mg p.o. twice daily x7 days, Lasix 40 mg daily p.o. for 14 days. 02/02/2022-canceled nephrectomy for 02/03. Called patient to discuss, subjectively feels back to baseline follow (more content not included)... Normal [employer] CNPNon 04-02-2022 [facility] Telephone ([facility]) ----- YEFRI YANEZ ([id number]) 1965 M [facility] Date Time Provider Department 04/02/22 AMERICA SCHWARTZ [facility] During your visit today, we recorded [...] Encounter Status:Closed by AMERICA SCHWARTZ on 04/02/22 [facility] CNPN Telephone ([facility]) ----- YEFRI YANEZ ([id number]) 1965 M [facility] Date Time Provider Department 04/02/22 HAYLEE WILBURN [facility] During your visit today, we recorded [...] Encounter Status:Closed by DONAVON EASTMAN on 04/02/22 [facility] CT ABD/PEL W IVCONon 023 CT ABD/PEL W IVCON * * *Final Report* * * DATE OF EXAM: Mar 26 2022 10:14AM [facility] 0530 - CT ABD/PEL W IVCON / PROCEDURE REASON: Renal cell carcinoma of right kidney (HCC) * * * * Physician Interpretation * * * * EXAMINATION: CT ABDOMEN AND PELVIS WITH IV CONTRAST CLINICAL HISTORY: Renal cell carcinoma of the right kidney. Status post interval robotic right radical nephrectomy at [facility]. TECHNIQUE: CT of the abdomen and [...] chest CT performed will be reported separately. Steeler (topogram) images: No additional findings. IMPRESSION: Interval right nephrectomy with change in the nephrectomy bed favored to be postoperative. No definite recurrence. Decrease in size of lytic metastasis centered in the posterior elements of L4. No new abdominopelvic metastasis. Stable aortic and bilateral common iliac artery aneurysms. 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: [facility] Transcribe Date/Time: Mar 28 2022 9:47A Dictated by : JOSE MARIA MADSEN MD This examination was interpreted and the report reviewed and electronically signed by: JOSE MAIRA MADSEN MD on Mar 28 2022 9:57AM EST [id number] [facility] CT CHEST W IVCONon 3 CT CHEST W IVCON * * *Final Report* * * DATE OF EXAM: Mar 26 2022 10:14AM [facility] 0539 - CT CHEST W IVCON / [...] No abnormality in the imaged upper abdomen. Steeler (topogram) images: No additional findings. IMPRESSION: New small patchy infiltrates in the lateral right middle and lower lobes. Interval decrease in size right sixth rib expansile metastasis. Stable 1.3 cm right paratracheal lymph node. No new lymphadenopathy. Atherosclerotic calcification of the aorta and coronary arteries. Ectasia of the ascending thoracic aorta. _ 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: [facility] Transcribe Date/Time: Mar 29 2022 12:00P Dictated by : YEFRI MORRIS MD This examination was interpreted and the report reviewed and electronically signed by: YEFRI MORRIS MD on Mar 29 2022 10:12PM EST [id number] [facility] CNPShy [facility] ----- YEFRI YANEZ ([id number]) 1965 M [facility] Date Time Provider Department 03/25/22 HAYLEE WILBURN [facility] During your visit today, we recorded the following information about you: Tania Parekh RN 03/25/2022 9:12 AM Signed Patient called stating his insurance is not approved for our office and that Dr. Wilburn needs to place a Referral for Nathaniel. 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 Pt keeps calling to say that he is not apporved to be seen here and his insurance told him to go to [place]. I have discussed several times with pt [...] Encounter Status:Closed by VENITA POLLOCK on 03/25/22 [facility] BONE WHOLE BODYon 023 NM BONE WHOLE BODY * * *Final Report* * * DATE OF EXAM: Mar 23 2022 12:09PM Michelle 0014 - NM BONE WHOLE BODY / [...] right anterior sixth rib and L4 vertebra. 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: PSCB Transcribe Date/Time: Mar 23 2022 12:12P Dictated by : NASREEN QUINTANA MD This examination was interpreted and the report reviewed and electronically signed by: NASREEN QUINTANA MD on Mar 23 2022 12:18PM EST [id number] [facility] CNPNon 03-12-2022 CNPN Telephone ([facility]) ----- YEFRI YANEZ ([id number]) 1965 M [facility] Date Time Provider Department 03/12/22 AMERICA SCHWARTZ [facility] During your visit today, we recorded the following information about you: Octavio Schwartz RN 03/12/2022 11:04 AM Signed LMOM with the appointment dates, times and location of upcoming bone scan and CT scans. Bone scan 03/23/22 at 830 am here at the [facility]. CT scans at [place] [facility] 03/24/22 at 1pm. America Schwartz [...] Encounter Status:Closed by AMERICA SCHWARTZ on 03/16/22 [facility] CNOVSPon 03-11-2022 CNOVSP Visit (SP) Office ([facility]) ----- YEFRI YANEZ ([id number]) 1965 M [facility] Date Time Provider Department 03/11/22 1:00 PM HAYLEE WILBURN [facility] During your visit today, we recorded the following information about you: Pulse Respiration Blood pressure Weight 78/minute 16/minute 134/84 118.8 kg Haylee Wilburn MD 03/11/2022 4:16 PM Signed [facility] Progress Note SERVICE DATE: March 11, 2022 [...] started treatment with cabo + nivo on [facility] 1820 Trial on 08/08/2021 at [facility]. He has baseline HTN and developed worsening HTN after starting treatment. His cabo was held on 08/18/2021, resumed on 09/11/2021. The Nivo was held on 09/11/21 due to pneumonitis, and prednisone 60 mg daily was started and tapered off within about one month. Due to insurance change, he was taken off the trial and referred to [facility] to resume the treatment. He was scheduled to have nephrectomy on 11/04/21, but delayed due to his back pain. He underwent palliative XRT to L3-L5 (2,000 cGy in 5 fx), completed 12/26/21). He underwent da Farzad assisted robotic right radical nephrectomy at [facility] in [facility]. I do not have the official pathology report yet. We have made multiple requests to [facility] for the surgical pathology, to [...] mg tablet (more content not included)... Normal [facility] ECHO LIMITEDon 02-26-2022 CONCLUSIONS: - Exam [...] * * * Final * * * [facility] Echocardiography Report: [facility] Date of service: 02/26/2022 8:14:13 AM Ordering physician: SAYRA TELLO Indication: Cardiomyopathy Technologist: Sybil Craft [facility] Interpreting physician: Sayra Tello MD PATIENT: Name: [...] valve regurgitation. PERICARDIUM The pericardium is normal. [facility] ECHO LIMITED Echocardiography Rep ort: [facility] Date of service: 02/26/2022 8:14:13 AM Ordering physician: SAYRA TELLO Indication: Cardiomyopathy Technologist: Sybil [facility] Interpreting physician: Sayra Tello MD PATIENT: Name: [...] * * * Final * * * [employer] Image : [id number] [facility] Dougie 02-19-2022 SERGEY Telephone (WeVideo.It) ----- RENATAYEFRI ([id number]) 1965 M [facility] Date Time Provider Department [...] [I50.9] Order(s):BASIC METABOLIC PNL [SQBMP] Order #: [id number] FUTURE Prescriptions as of 02/22/2022 - torsemide [...] Encounter Status:Closed by SAYRA TELLO on 02/22/22 [facility] 02-18-2022 CNPN Telephone (CARMOB) ----- YEFRI YANEZ ([id number]) 1965 [facility] Date Time Provider Department 02/18/22 SAYRA TELLO [...] Encounter Status:Closed by RACHEL TREVINO on 02/18/22 [facility] CBC W Auto Differential pane l (Bld)on 02-17-2022 Basophils (Bld) [#/Vol] 10*3/uL Normal <0.11 [facility] Comment on above: Order Comment: Speci men Type: BLOOD SPECIMENOrdering Facility: [facility] Address: [place] [address] Performed By: #### 5 7021-8 ####[facility] HEME ONC LABCLIA [id number] [address] [place] Basophils/100 WBC (Bld) 0.2 % Normal [facility] Comment on above: Order Comment: Speci men Type: BLOOD SPECIMENOrdering Facility: [facility] Address: [address] [place] [address] Performed By: #### 5 7021-8 ####[facility] LABCLIA [id number] [place] [address] [place] Differential cell count method Nom (Bld) Auto Normal [facility] Comment on above: Order Comment: Speci men Type: BLOOD SPECIMENOrdering Facility: [facility] Address: [address] [place] [address] Performed By: #### 5 7021-8 ####[facility] LABCLIA [id number] [place] [address] [place] Eosinophils (Bld) [#/Vol] 0.04 10*3/uL Normal <0.46 [facility] Comment on above: Order Comment: Speci men Type: BLOOD SPECIMENOrdering Facility: [facility] Address: [address] [place] [address] Performed By: #### 5 7021-8 ####[facility] LABCLIA [id number] [place] [address] [place] Eosinophils/100 WBC (Bld) 1.0 % Normal [facility] Comment on above: Order Comment: Speci men Type: BLOOD SPECIMENOrdering Facility: [facility] Address: [address] [place] [address] Performed By: #### 5 7021-8 ####[facility] LABCLIA [id number] [place] [address] [place] Erythrocyte distribution width (RBC) [Ratio] 17.0 % High 11.5-15.0 [facility] Comment on above: Order Comment: Speci men Type: BLOOD SPECIMENOrdering Facility: [facility] Address: [address] [place] [address] Performed By: #### 5 7021-8 ####[facility] LABCLIA [id number] [place] [address] [place] Hematocrit (Bld) [Volume fraction] 47.4 % Normal 39.0-51.0 [facility] Comment on above: Order Comment: Speci men Type: BLOOD SPECIMENOrdering Facility: [facility] Address: [address] [place] [address] Performed By: #### 5 7021-8 ####[facility] LABCLIA [id number] [place] [address] [place] Hemoglobin (Bld) [Mass/Vol] 15.7 g/dL Normal 13.0-17.0 [facility] Comment on above: Order Comment: Speci men Type: BLOOD SPECIMENOrdering Facility: [facility] Address: [address] [place] [address] Performed By: #### 5 7021-8 ####[facility] LABCLIA [id number] [place] [address] [place] Immature granulocytes (Bld) [#/Vol] 10*3/uL Normal <0.10 [facility] Comment on above: Order Comment: Speci men Type: BLOOD SPECIMENOrdering Facility: [facility] Address: [address] [place] [address] Performed By: #### 5 7021-8 ####[facility] LABCLIA [id number] [place] [address] [place] Immature granulocytes/100 WBC (Bld) 0.5 % Normal [facility] Comment on above: Order Comment: Speci men Type: BLOOD SPECIMENOrdering Facility: [facility] Address: [address] [place] [address] Performed By: #### 5 7021-8 ####[facility] LABCLIA [id number] [place] [address] [place] Lymphocytes (Bld) [#/Vol] 0.75 10*3/uL Low 1.00-4.00 [facility] Comment on above: Order Comment: Speci men Type: BLOOD SPECIMENOrdering Facility: [facility]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 [id number] Physical Exam by System: Constitutional: Well developed, [...] - BUN/SCr slight decrease 25/1.84 today from 311.90 yesterday - s/p right nephrectomy #Atrial fibrillation - Can resume coumadin on Wednesday02/11/22 #HTN #CHF - Medicine on consult - ap (more content not included)... Normal [facility] Discharge Planning Dvvw5ba 1 04-12-2021 Discharge Planning Note2 Discharge Planning: Needs Prior to Discharge (ex. Home Care Orders, IV/O2 prescriptions) TBD pending therapy evaluations and weaning off O2 Planned Dispositionhome Patient/Cardiovascular Surgeon Stated Goalto go home Anticipated Discharge [id number] Discharge Planning 02/09/2022 1100- This TCC met with the patient at the bedside. Patient with no use of HHC or DME prior to admission. Patient currently on 3L of O2 with no prior home O2 use. This TCC verified the patient's ability to obtain/afford medications. Patient's needs are TBD at this time, pending therapy evaluations. Patient lives at home in [place] with Miya and plans to return there. Family to provide transport at the time of d/c. Kitty Farias RN TCC 02/10- PT recs [facility]. This TCC met with the pt at the bedside. Pt is currently refusing HHC, at this time. However, pt wants a walker. This TCC received a walker script and sent a referral to [facility] for delivery. Family to provide transport at the time of d/c. Cameron Atwood Assessment: Discharge Planning Assessment [id number] Discharge Planning Assessment Completed Kevin Farias Primary Contact Name and NumberwifeMiya [phone] Prior Level of FunctioningIndependent Lives Withspouse Stated Reason for Admissionright laparoscopic nephrectomy Arrived Fromlucinda PCPDr. Daksha Turner [facility] [place] Recent Falls/ Injury/ Need Assist with Ambulationn/a Home Care Agency/Support ServicesN/A Resource/Environmental Concernsnone Anticipated Transition [place] Services Anticipated at Transitionnone Readmission Within the Last 30 Daysno previous admission in last 30 days PCP Last Date Seenlast month InsuranceMMO Super Med Special Considerationsn/a Transportation Home Who/Fidel (, Miya [phone]) Medication Adherence/Afford/Obtainye s Discharge Documentation: Discharge/Transfer Date/[id number]-Bzv-3509 18:00 Discharged Accompanied Byspouse Transportation Methodprivate car Discharge Modewheelchair Code StatusCode Status order at time of discharge: Full Code Discharge Order Writtenyes [place] DNR Form Sent with Patient and/or Familyn/a Valuables/Medications/Bel ongings Returnedyes Final Disposition.Home Electronic Signatures: Kitty Farias (STAFF N) (Signed 09-Feb-2022 11:10) Authored: Discharge Planning, Assessment, Discharge Documentation Cameron Atwood (RN) (Signed 10-Feb-2022 11:44) Authored: Discharge Planning, Discharge Documentation Marysol Hussein (STAFF N) (Signed 10-Feb-2022 18:21) Authored: Discharge Planning, Discharge Documentation Last Updated: 10-Feb-2022 18:21 by Marysol Hussein (STAFF N) Normal [facility] RENAL FUNCTION PANELon 02-09 Albumin [Mass/Vol] 3.5 g/dL Normal 3.4 - 5.0 [facility] Comment on above: Performed By: #### C BC #### [address] [address] Anion gap [Moles/Vol] 10 mmol/L Normal 10 - 20 [facility] Comment on above: Performed By: #### C BC #### [address] [address] Calcium [Mass/Vol] 8.8 mg/dL Normal 8.6 - 10.3 [facility] Comment on above: Performed By: #### C BC #### [address] [address] Chloride [Moles/Vol] 102 mmol/L Normal 98 - 107 [facility] Comment on above: Performed By: #### C BC #### [address] [address] Creatinine [Mass/Vol] 1.84 mg/dL High 0.50 - 1.30 [facility] Comment on above: Performed By: #### C BC #### [address] [address] GFR/1.73 sq M.predicted among non-blacks MDRD (S/P/Bld) [Vol rate/Area] 42 mL/min/{1.73_m2} Abnormal >90 [facility] Comment on above: Result Comment: CALC ULATIONS OF ESTIMATED GFR ARE PERFORMED USING THE 2020 CKD-EPI STUDY REFIT EQUATION WITHOUT THE RACE VARIABLE FOR THE IDMS-TRACEABLE CREATININE METHODS. https://jasn.asnjournals.org/content/early/ASN.2020 542196 Performed By: #### C BC #### [address] [address] Glucose [Mass/Vol] 127 mg/dL High 74 - 99 [facility] Comment on above: Performed By: #### C BC #### [address] [address] HCO3 (Bld) [Moles/Vol] 33 mmol/L High 21 - 32 [facility] Comment on above: Performed By: #### C BC #### [address] [address] Phosphate [Mass/Vol] 2.8 mg/dL Normal 2.5 - 4.9 [facility] Comment on above: Result Comment: The performance characteristics of phosphorus testing in heparinized plasma have been validated by the individual laboratory site where testing is performed. Testing on heparinized plasma is not approved by the FDA; however, such approval is not necessary. Performed By: #### C BC #### [address] [address] Potassium [Moles/Vol] 4.3 mmol/L Normal 3.5 - 5.3 [facility] Comment on above: Performed By: #### C BC #### [address] [address] Sodium [Moles/Vol] 141 mmol/L Normal 136 - 145 [facility] Comment on above: Performed By: #### C BC #### [address] [place] [address] Urea nitrogen [Mass/Vol] 25 mg/dL High 6 - 23 [facility] Comment on above: Performed By: #### C BC #### [address] [place] [address] CBCon 02-08-2022 Erythrocyte distribution width (RBC) [Ratio] 19.7 % High 11.5 - 14.5 [facility] Comment on above: Performed By: #### C BC #### [address] [place] [address] Hematocrit (Bld) [Volume fraction] 46.7 % Normal 41.0 - 52.0 [facility] Comment on above: Performed By: #### C BC #### [address] [address] Hemoglobin (Bld) [Mass/Vol] 14.0 g/dL Normal 13.5 - 17.5 [facility] Comment on above: Performed By: #### C BC #### [address] [place] [address] MCHC (RBC) [Mass/Vol] 30.0 g/dL Low 32.0 - 36.0 [facility] Comment on above: Performed By: #### C BC #### [address] [address] MCV (RBC) [Entitic vol] 106 fL High 80 - [address] [facility] Comment on above: Performed By: #### C BC #### [address] [place] [address] NUCLEATED RBC 0.3 /100 WBC Normal 0.0 - 0.0 [facility] Comment on above: Performed By: #### C BC #### [address] [place] [address] Platelets (Bld) [#/Vol] 123 10*3/uL Low 150 - 450 [facility] Comment on above: Performed By: #### C BC #### [address] [place] [address] RBC 4.42 x10E12/L Low 4.50 - 5.90 [facility] Comment on above: Performed By: #### C BC #### [address] [address] WBC (Bld) [#/Vol] 6.8 10*3/uL Normal 4.4 - 11.3 [facility] Comment on above: Performed By: #### C BC #### [address] [address] COMPREHENSIVE PANELon 2021 Albumin [Mass/Vol] 3.5 g/dL Normal 3.4 - 5.0 [facility] Comment on above: Performed By: #### C MP #### [address] [address] ALP [Catalytic activity/Vol] 54 U/L Normal 33 - 120 [facility] Comment on above: Performed By: #### C MP #### [address] [address] ALT [Catalytic activity/Vol] 121 U/L High 10 - 52 [facility] Comment on above: Result Comment: Hyun ents treated with Sulfasalazine may generate falsely decreased results for ALT. Performed By: #### C MP #### [address] [address] Anion gap [Moles/Vol] 14 mmol/L Normal 10 - 20 [facility] Comment on above: Performed By: #### C MP #### [address] [address] AST [Catalytic activity/Vol] 83 U/L High 9 - 39 [facility] Comment on above: Result Comment: MILD HEMOLYSIS DETECTED. The result may be falsely elevated due to hemolysis or other interferents. Clinical correlation is recommended. Repeat testing may be considered. Performed By: #### C MP #### [address] [address] Bilirubin [Mass/Vol] 0.9 mg/dL Normal 0.0 - 1.2 [facility] Comment on above: Performed By: #### C MP #### [address] [place] [address] Calcium [Mass/Vol] 8.5 mg/dL Low 8.6 - 10.3 [facility] Comment on above: Performed By: #### C MP #### [address] [address] Chloride [Moles/Vol] 103 mmol/L Normal 98 - 107 [facility] Comment on above: Performed By: #### C MP #### [address] [address] Creatinine [Mass/Vol] 1.90 mg/dL High 0.50 - 1.30 [facility] Comment on above: Performed By: #### C MP #### [address] [address] GFR/1.73 sq M.predicted among non-blacks MDRD (S/P/Bld) [Vol rate/Area] 40 mL/min/{1.73_m2} Abnormal >90 [facility] Comment on above: Result Comment: CALC ULATIONS OF ESTIMATED GFR ARE PERFORMED USING THE 2020 CKD-EPI STUDY REFIT EQUATION WITHOUT THE RACE VARIABLE FOR THE IDMS-TRACEABLE CREATININE METHODS. https://jasn.asnjournals.org/content/early//ASN.2020 770920 Performed By: #### C MP #### [address] [address] Glucose [Mass/Vol] 92 mg/dL Normal 74 - 99 [facility] Comment on above: Performed By: #### C MP #### [address] [address] HCO3 (Bld) [Moles/Vol] 24 mmol/L Normal 21 - 32 [facility] Comment on above: Performed By: #### C MP #### [address] [address] Potassium [Moles/Vol] 4.2 mmol/L Normal 3.5 - 5.3 [facility] Comment on above: Result Comment: MILD HEMOLYSIS DETECTED. The result may be falsely elevated due to hemolysis or other interferents. Clinical correlation is recommended. Repeat testing may be considered. Performed By: #### C MP #### [address] [place] [address] Protein [Mass/Vol] 6.0 g/dL Low 6.4 - 8.2 [facility] Comment on above: Performed By: #### C MP #### [address] [address] Sodium [Moles/Vol] 137 mmol/L Normal 136 - 145 [facility] Comment on above: Performed By: #### C MP #### [address] [address] Urea nitrogen [Mass/Vol] 31 mg/dL High 6 - 23 [facility] Comment on above: Performed By: #### C MP #### [address] [address] Daily Progress Note-Medicine on 02-08-2022 Daily Progress [...] night. Objective Data: Objective Information: T PRBPMAPSpO2 [id number] % Date/Time02/08 8: 8: 8: 8: 11: [...] Mild ---- Intake and Output ----- Mn/Dy/[facility] Feb 08, 2022 6:00 [id number] Feb 07, 2022 10:00 [id number] Feb 07, 2022 2:00 pm228.8250-22 The Intake and Output Totals for the last 24 hours are: [facility] [id number] Physical Exam Narrative: Physical Exam: General: Appears [...] # Atelectasi (more content not included)... Normal [facility] Daily Progress Note-Urologyo n 02-08-2022 Daily Progress [...] complaints. Objective Data: Objective Information: T PRBPMAPSpO2 [id number] % Date/Time02/08 8: 8: 8: 8: 11: [...] ----- Mn/Dy/Year TimeIntakeOutputNet Feb 08, 2022 6:00 [id number] Feb 07, 2022 10:00 [id number] Feb 07, 2022 2:00 pm228.8250-22 The Intake and Output Totals for the last 24 hours are: IntakeOutputNet [id number] Physical Exam Narrative: Physical Exam: General: in [...] Updated: 08-Feb-2022 10:32 by Andre Mota) Normal [facility] ARTERIAL FULL PANELon 2021 OXY HGB 92.9 % Low 94.0 - 98.0 [facility] Comment on above: Result Comment: Test report [...] 08:50 Performed By: #### C BC #### [place] [address] SO2 93 % Low 94 - 100 [facility] Comment on above: Result Comment: Test report [...] 08:50 Performed By: #### C BC #### [place] [address] LANRE'S TEST[COLLATERAL CIRCULATION] YES, RR Normal [facility] Comment on above: Performed By: #### C BC #### [place] [id number] Anion gap [Moles/Vol] 9 mmol/L Low 10 - 25 [facility] Comment on above: Performed By: #### C BC #### [place] [id number] BASE EXCESS-BLOOD 2.9 mmol/L Normal -2.0 - 3.0 [facility] Comment on above: Performed By: #### C BC #### [place] [id number] BICARB, CALCULATED 31.0 mmol/L High 22.0 - 26.0 [facility] Comment on above: Performed By: #### C BC #### [place] [id number] CALCIUM,IONIZED 1.17 mmol/L Normal 1.10 - 1.33 [facility] Comment on above: Performed By: #### C BC #### [address] [place] [address] Chloride [Moles/Vol] 105 mmol/L Normal 98 - 107 [facility] Comment on above: Performed By: #### C BC #### [address] [place] [address] EPAP CMH2O 8.0 cm H2O Normal [facility] Comment on above: Performed By: #### C BC #### [address] [place] [address] FLOW 8.0 LPM Normal [facility] Comment on above: Performed By: #### C BC #### [address] [place] [address] Glucose [Mass/Vol] 117 mg/dL High 74 - 99 [facility] Comment on above: Performed By: #### C BC #### [address] [place] [address] Hematocrit (Bld) [Volume fraction] 40.0 % Low 41.0 - 52.0 [facility] Comment on above: Performed By: #### C BC #### [address] [place] [address] Hemoglobin (Bld) [Mass/Vol] 13.2 g/dL Normal 13.5 - 17.5 [facility] Comment on above: Result Comment: Test report has been amended to note detection of an absorbance or turbidity error which may cause inaccurate results. The result is unchanged but should be interpreted with caution and in conjunction with additional laboratory information. Performed By: #### C BC #### [address] [place] [address] IPAP CMH2O 16.0 cm H2O Normal [facility] Comment on above: Performed By: #### C BC #### [address] [place] [address] Lactate [Moles/Vol] 0.9 mmol/L Normal 0.4 - 2.0 [facility] [facility] Comment on above: Performed By: #### C BC #### [address] [place] [address] Oxygen (Bld) [Partial pressure] 95 mm[Hg] Normal 85 - 95 [facility] Comment on above: Performed By: #### C BC #### [address] [address] PATIENT TEMPERATURE 37.[address] [facility] Comment on above: Result Comment: NOTE : PATIENT RESULTS ARE NOT CORRECTED FOR TEMPERATURE. Performed By: #### C BC #### [address] [address] PCO2 63 mmHg High 38 - 42 [facility] Comment on above: Performed By: #### C BC #### [address] [address] pH (Bld) 7.30 [pH] Low 7.38 - 7.42 [facility] Comment on above: Performed By: #### C BC #### [address] [address] Potassium [Moles/Vol] 4.6 mmol/L Normal 3.5 - 5.3 [facility] Comment on above: Performed By: #### C BC #### [address] [address] Sodium [Moles/Vol] 140 mmol/L Normal 136 - 145 [facility] Comment on above: Performed By: #### C BC #### [address] [address] VENTILATOR MODE BiPAP Normal [facility] Comment on above: Performed By: #### C BC #### [address] [address] LANRE'S TEST[COLLATERAL CIRCULATION] N/A Normal [facility] Comment on above: Order Comment: BIPAP 14/8 4 LPM Performed By: #### A FPA4 ####[address] [address] Anion gap [Moles/Vol] 11 mmol/L Normal 10 - 25 [facility] Comment on above: Order Comment: BIPAP 14/8 4 LPM Performed By: #### A FPA4 ####[address] [address] BASE EXCESS-BLOOD 1.5 mmol/L Normal -2.0 - 3.0 [facility] Comment on above: Order Comment: BIPAP 19/10 4 LPM Performed By: #### A FPA4 ####[address] [address] BICARB, CALCULATED 30.3 mmol/L High 22.0 - 26.0 [facility] Comment on above: Order Comment: BIPAP 19/10 4 LPM Performed By: #### A FPA4 ####[address] [address] CALCIUM,IONIZED 1.18 mmol/L Normal 1.10 - 1.33 [facility] Comment on above: Order Comment: BIPAP 19/10 LPM Performed By: #### A FPA4 ####[address] [address] Chloride [Moles/Vol] 104 mmol/L Normal 98 - 107 [facility] Comment on above: Order Comment: BIPAP 19/10 4 LPM Performed By: #### A FPA4 ####[address] [address] Glucose [Mass/Vol] 168 mg/dL High 74 - 99 [facility] Comment on above: Order Comment: BIPAP 19/10 4 LPM Performed By: #### A FPA4 ####[address] [address] Hematocrit (Bld) [Volume fraction] 42.0 % Normal 41.0 - 52.0 [facility] Comment on above: Order Comment: BIPAP 19/10 4 LPM Performed By: #### A FPA4 ####[address] [address] Hemoglobin (Bld) [Mass/Vol] 14.1 g/dL Normal 13.5 - 17.5 [facility] Comment on above: Order Comment: BIPAP 14 4 LPM Performed By: #### A FPA4 ####[address] [address] Lactate [Moles/Vol] 0.9 mmol/L Normal 0.4 - 2.0 [facility] Comment on above: Order Comment: BIPAP 14/8 4 LPM Performed By: #### A FPA4 ####[address] [address] OXY HGB 87.0 % Low 94.0 - 98.0 [facility] Comment on above: Order Comment: BIPAP 14/8 4 LPM Performed By: #### A FPA4 ####[address] [address] Oxygen (Bld) [Partial pressure] 63 mm[Hg] Low 85 - 95 [facility] Comment on above: Order Comment: BIPAP 14/8 4 LPM Performed By: #### A FPA4 ####[address] [address] PATIENT TEMPERATURE 37.[address] [facility] Comment on above: Order Comment: BIPAP 14/8 4 LPM Result Comment: NOTE : PATIENT RESULTS ARE NOT CORRECTED FOR TEMPERATURE. Performed By: #### A FPA4 ####[address] [address] PCO2 66 mmHg High 38 - 42 [facility] Comment on above: Order Comment: BIPAP 14/8 4 LPM Performed By: #### A FPA4 ####[address] [address] pH (Bld) 7.27 [pH] Low 7.38 - 7.42 [facility] Comment on above: Order Comment: BIPAP 14/8 4 LPM Performed By: #### A FPA4 ####[address] [address] Potassium [Moles/Vol] 4.4 mmol/L Normal 3.5 - 5.3 [facility] Comment on above: Order Comment: BIPAP 14/8 4 LPM Performed By: #### A FPA4 ####[address] [address] SO2 89 % Low 94 - 100 [facility] Comment on above: Order Comment: BIPAP 19/10 4 LPM Performed By: #### A FPA4 ####[address] [address] Sodium [Moles/Vol] 141 mmol/L Normal 136 - 145 [facility] Comment on above: Order Comment: BIPAP 19/10 4 LPM Performed By: #### A FPA4 ####[address] [address] CBCon 02-07-2022 Erythrocyte distribution width (RBC) [Ratio] 19.1 % High 11.5 - 14.5 [facility] Comment on above: Performed By: #### C BC ####[address] [address] Hematocrit (Bld) [Volume fraction] 43.1 % Normal 41.0 - 52.0 [facility] Comment on above: Performed By: #### C BC ####[address] [address] Hemoglobin (Bld) [Mass/Vol] 13.6 g/dL Normal 13.5 - 17.5 [facility] Comment on above: Performed By: #### C BC ####[address] [address] MCHC (RBC) [Mass/Vol] 31.6 g/dL Low 32.0 - 36.0 [facility] Comment on above: Performed By: #### C BC ####[address] [address] MCV (RBC) [Entitic vol] 100 fL Normal 80 - [address] [facility] Comment on above: Performed By: #### C BC ####[address] [address] NUCLEATED RBC 0.4 /100 WBC Normal 0.0 - 0.0 [facility] Comment on above: Performed By: #### C BC ####[address] [address] Platelets (Bld) [#/Vol] 150 10*3/uL Normal 150 - 450 [facility] Comment on above: Performed By: #### C BC ####[id number] [facility] [place] [place] [address] RBC 4.32 x10E12/L Low 4.50 - 5.90 [facility] Comment on above: Performed By: #### C BC ####[id number] [place] [address] WBC (Bld) [#/Vol] 7.1 10*3/uL Normal 4.4 - 11.3 [facility] Comment on above: Performed By: #### C BC ####[id number] [place] [address] Consult-DACR, Medicineon Consult-DACR, Medicine Service: Service: DACR [...] Mushrooms: Unknown Objective: Objective Information: T PRBPMAPSpO2 [id number]/121189% Date/Time02/07 16: 16: 16: 16: 11: 16:00 [...] 2.9 Bi (more content not included)... Normal [facility] Daily Progress Note - Critic Mcbride 02-07-2022 Daily Progress Note - Critical Care Subjective Data: ID Statement: YEFRI YANEZ is a 57 year old Male who is Hospital Day # 2 and ICU Day #2 and POD #1 for laparoscopic right radical nephrectomy. AAOx3, on nasal cannula. No complaints of pain on exam. Resting comfortably. Objective Data: Objective Information T PRBPMAPSpO2 [id number]/546006% Date/Time02/07 4: 7: 7: 7: 7: 7:00 [...] for the last 24 hours are: IntakeOutputNet [id number] Drain and tube details (included in I&O totals) 1100 cc Indwelling Catheter - Urethral( 07-Feb-2022 06:00:00 ) Date: Weight/Scale Type: 07-Feb-2022 06:68206.7 kg / bed 06-Feb-2022 09:56443 kg 06-Feb-2022 09:57580 kg Physical Exam by System: Neurological: alert [...] h range: ( 7.26 - 7.45 ) [id number] 24 h range: ( 46 - 68 ) [id number] 24 h range: ( 87 (more content not included)... Normal [facility] Daily Progress Note-Urologyo n 02-07-2022 Daily Progress Note-Urology Service: Urology Subjective Data: YEFRI YANEZ Theodora is a 57 year old Male who is Hospital Day # 2 and POD #1 for laparoscopic right radical nephrectomy. Additional Information: Extubated last night approximately at 10 PM. Stable overnight. Resting comfortably this morning. Denies shortness of breath or chest pain. Abdominal pain reasonably well controlled. No nausea or vomiting noted. Objective Data: Objective Information: T PRBPMAPSpO2 [id number]/885108% Date/Time02/07 4: 7: 7: 7: 7: 7:00 [...] for the last 24 hours are: IntakeOutputNet [id number] Physical Exam Narrative: Physical Exam: General: in [...] h range: ( 7.26 - 7.45 ) [id number] 24 h range: ( 46 - 68 [...] Updated: 07-Feb-2022 07:33 by Andre Mota) Normal [facility] GLUCOSE-POCTon 02-07-2022 Glucose [Mass/Vol] 124 mg/dL High 74 - 99 [facility] Comment on above: Performed By: #### G STEFANI ####[id number] [place] [address] MAGNESIUMon 02-07-2022 Magnesium [Mass/Vol] 1.98 mg/dL Normal 1.60 - 2.40 [facility] Comment on above: Performed By: #### M G ####[id number] [place] [address] RENAL FUNCTION PANELon 02-07 Albumin [Mass/Vol] 3.7 g/dL Normal 3.4 - 5.0 [facility] Comment on above: Performed By: #### R ENAL #### [address] [address] Anion gap [Moles/Vol] 14 mmol/L Normal 10 - 20 [facility] Comment on above: Performed By: #### R ENAL #### [address] [address] Calcium [Mass/Vol] 8.4 mg/dL Low 8.6 - 10.3 [facility] Comment on above: Performed By: #### R ENAL #### [address] [address] Chloride [Moles/Vol] 107 mmol/L Normal 98 - 107 [facility] Comment on above: Performed By: #### R ENAL #### [address] [address] Creatinine [Mass/Vol] 1.57 mg/dL High 0.50 - 1.30 [facility] Comment on above: Performed By: #### R ENAL #### [address] [address] GFR/1.73 sq M.predicted among non-blacks MDRD (S/P/Bld) [Vol rate/Area] 51 mL/min/{1.73_m2} Abnormal >90 [facility] Comment on above: Result Comment: CALC ULATIONS OF ESTIMATED GFR ARE PERFORMED USING THE 2020 CKD-EPI STUDY REFIT EQUATION WITHOUT THE RACE VARIABLE FOR THE IDMS-TRACEABLE CREATININE METHODS. https://jasn.asnjournals.org/content/early//ASN.2020 540472 Performed By: #### R ENAL #### [address] [place] [address] Glucose [Mass/Vol] 115 mg/dL High 74 - 99 [facility] Comment on above: Performed By: #### R ENAL #### [address] [place] [address] HCO3 (Bld) [Moles/Vol] 29 mmol/L Normal 21 - 32 [facility] Comment on above: Performed By: #### R ENAL #### [address] [place] [address] Phosphate [Mass/Vol] 6.1 mg/dL High 2.5 - 4.9 [facility] Comment on above: Result Comment: The performance characteristics of phosphorus testing in heparinized plasma have been validated by the individual laboratory site where testing is performed. Testing on heparinized plasma is not approved by the FDA; however, such approval is not necessary. Performed By: #### R ENAL #### [address] [place] [address] Potassium [Moles/Vol] 4.6 mmol/L Normal 3.5 - 5.3 [facility] Comment on above: Performed By: #### R ENAL #### [address] [place] [address] Sodium [Moles/Vol] 145 mmol/L Normal 136 - 145 [facility] Comment on above: Performed By: #### R ENAL #### [address] [place] [address] Urea nitrogen [Mass/Vol] 25 mg/dL High 6 - 23 [facility] Comment on above: Performed By: #### R ENAL #### [address] [place] [address] ABO/RH GROUP TESTon 02-07-20 22 ABO TYPE Canceled Normal [facility] Comment on above: Order Comment: TEST ABO/RH GROUP TEST WAS CANCELLED, 02/06/2022 15:57 not needed. Performed By: #### C BC #### [address] [place] [address] RH TYPE Canceled Normal [facility] Comment on above: Order Comment: TEST ABO/RH GROUP TEST WAS CANCELLED, 02/06/2022 15:57 not needed. Performed By: #### C BC #### [address] [address] ARTERIAL FULL PANELon 2021 LANRE'S TEST[COLLATERAL CIRCULATION] N/A Normal [facility] Comment on above: Order Comment: 4 LPM NC Performed By: #### A FPA4 #### [address] [address] Anion gap [Moles/Vol] 10 mmol/L Normal 10 - 25 [facility] Comment on above: Order Comment: 4 LPM NC Performed By: #### A FPA4 #### [address] [address] BASE EXCESS-BLOOD 1.4 mmol/L Normal -2.0 - 3.0 [facility] Comment on above: Order Comment: 4 LPM NC Performed By: #### A FPA4 #### [address] [address] BICARB, CALCULATED 30.5 mmol/L High 22.0 - 26.0 [facility] Comment on above: Order Comment: 4 LPM NC Performed By: #### A FPA4 #### [address] [address] CALCIUM,IONIZED 1.17 mmol/L Normal 1.10 - 1.33 [facility] Comment on above: Order Comment: 4 LPM NC Performed By: #### A FPA4 #### [address] [address] Chloride [Moles/Vol] 105 mmol/L Normal 98 - 107 [facility] Comment on above: Order Comment: 4 LPM NC Performed By: #### A FPA4 #### [address] [address] Glucose [Mass/Vol] 142 mg/dL High 74 - 99 [facility] Comment on above: Order Comment: 4 LPM NC Performed By: #### A FPA4 #### [address] [address] Hematocrit (Bld) [Volume fraction] 43.0 % Normal 41.0 - 52.0 [facility] Comment on above: Order Comment: 4 LPM NC Performed By: #### A FPA4 #### [address] [address] Hemoglobin (Bld) [Mass/Vol] 14.3 g/dL Normal 13.5 - 17.5 [facility] Comment on above: Order Comment: 4 LPM NC Performed By: #### A FPA4 #### [address] [address] Lactate [Moles/Vol] 1.0 mmol/L Normal 0.4 - 2.0 [facility] Comment on above: Order Comment: 4 LPM NC Performed By: #### A FPA4 #### [address] [address] OXY HGB 84.3 % Low 94.0 - 98.0 [facility] Comment on above: Order Comment: 4 LPM NC Performed By: #### A FPA4 #### [address] [address] Oxygen (Bld) [Partial pressure] 60 mm[Hg] Low 85 - 95 [facility] Comment on above: Order Comment: 4 LPM NC Performed By: #### A FPA4 #### [address] [address] PATIENT TEMPERATURE 37.[address] [facility] Comment on above: Order Comment: 4 LPM NC Result Comment: NOTE : PATIENT RESULTS ARE NOT CORRECTED FOR TEMPERATURE. Performed By: #### A FPA4 #### [address] [address] PCO2 68 mmHg High 38 - 42 [facility] Comment on above: Order Comment: 4 LPM NC Performed By: #### A FPA4 #### [address] [address] pH (Bld) 7.26 [pH] Low 7.38 - 7.42 [facility] Comment on above: Order Comment: 4 LPM NC Performed By: #### A FPA4 #### [address] [address] Potassium [Moles/Vol] 4.0 mmol/L Normal 3.5 - 5.3 [facility] Comment on above: Order Comment: 4 LPM NC Performed By: #### A FPA4 #### [address] [address] SO2 87 % Low 94 - 100 [facility] Comment on above: Order Comment: 4 LPM NC Performed By: #### A FPA4 #### [address] [address] Sodium [Moles/Vol] 141 mmol/L Normal 136 - 145 [facility] Comment on above: Order Comment: 4 LPM NC Performed By: #### A FPA4 #### [address] [address] Anion gap [Moles/Vol] 6 mmol/L Low 10 - 25 [facility] Comment on above: Performed By: #### A FPA4 ####[address] [address] BASE EXCESS-BLOOD 6.9 mmol/L High -2.0 - 3.0 [facility] Comment on above: Performed By: #### A FPA4 ####[address] [address] BICARB, CALCULATED 32.0 mmol/L High 22.0 - 26.0 [facility] Comment on above: Performed By: #### A FPA4 ####[address] [address] CALCIUM,IONIZED 1.16 mmol/L Normal 1.10 - 1.33 [facility] Comment on above: Performed By: #### A FPA4 ####[address] [address] Chloride [Moles/Vol] 106 mmol/L Normal 98 - 107 [facility] Comment on above: Performed By: #### A FPA4 ####[address] [address] Glucose [Mass/Vol] 146 mg/dL High 74 - 99 [facility] Comment on above: Performed By: #### A FPA4 ####[address] [address] Hematocrit (Bld) [Volume fraction] 42.0 % Normal 41.0 - 52.0 [facility] Comment on above: Performed By: #### A FPA4 ####[address] [address] Hemoglobin (Bld) [Mass/Vol] 14.1 g/dL Normal 13.5 - 17.5 [facility] Comment on above: Performed By: #### A FPA4 ####[address] [address] Lactate [Moles/Vol] 1.2 mmol/L Normal 0.4 - 2.0 [facility] Comment on above: Performed By: #### A FPA4 ####[address] [address] OXY HGB 95.3 % Normal 94.0 - 98.0 [facility] Comment on above: Performed By: #### A FPA4 ####[address] [address] Oxygen (Bld) [Partial pressure] 84 mm[Hg] Low 85 - 95 [facility] Comment on above: Performed By: #### A FPA4 ####[address] [address] PATIENT TEMPERATURE 37.[address] [facility] Comment on above: Result Comment: NOTE : PATIENT RESULTS ARE NOT CORRECTED FOR TEMPERATURE. Performed By: #### A FPA4 ####[address] [address] PCO2 46 mmHg High 38 - 42 [facility] Comment on above: Performed By: #### A FPA4 ####[address] [address] pH (Bld) 7.45 [pH] High 7.38 - 7.42 [facility] Comment on above: Performed By: #### A FPA4 ####[address] [address] Potassium [Moles/Vol] 3.4 mmol/L Low 3.5 - 5.3 [facility] Comment on above: Performed By: #### A FPA4 ####[address] [place] [address] SO2 98 % Normal 94 - 100 [facility] Comment on above: Performed By: #### A FPA4 ####[address] [place] [address] Sodium [Moles/Vol] 141 mmol/L Normal 136 - 145 [facility] Comment on above: Performed By: #### A FPA4 ####[address] [address] CBCon 02-06-2022 Erythrocyte distribution width (RBC) [Ratio] 19.0 % High 11.5 - 14.5 [facility] Comment on above: Performed By: #### C BC #### [address] [address] Hematocrit (Bld) [Volume fraction] 42.4 % Normal 41.0 - 52.0 [facility] Comment on above: Performed By: #### C BC #### [address] [address] Hemoglobin (Bld) [Mass/Vol] 13.5 g/dL Normal 13.5 - 17.5 [facility] Comment on above: Performed By: #### C BC #### [address] [address] MCHC (RBC) [Mass/Vol] 31.8 g/dL Low 32.0 - 36.0 [facility] Comment on above: Performed By: #### C BC #### [address] [address] MCV (RBC) [Entitic vol] 99 fL Normal 80 - [address] [facility] Comment on above: Performed By: #### C BC #### [address] [address] NUCLEATED RBC 0.6 /100 WBC Normal 0.0 - 0.0 [facility] Comment on above: Performed By: #### C BC #### [address] [place] [address] Platelets (Bld) [#/Vol] 137 10*3/uL Low 150 - 450 [facility] Comment on above: Performed By: #### C BC #### [address] [place] [address] RBC 4.29 x10E12/L Low 4.50 - 5.90 [facility] Comment on above: Performed By: #### C BC #### [address] [place] [address] WBC (Bld) [#/Vol] 6.9 10*3/uL Normal 4.4 - 11.3 [facility] Comment on above: Performed By: #### C BC #### [address] [place] [address] Clinical Intervention - Ginna etienne 02-06-2022 Clinical Intervention - Pharmacy Pharmacist's Clinical Intervention: Is this intervention medication reconciliation related: yes, History Electronic Signatures: Andrés Bañuelos ([employer]) (Signed 06-Feb-2022 18:53) Authored: Pharmacist's Clinical Intervention Last Updated: 06-Feb-2022 18:53 by Andrés Bañuelos (tritrue) [facility] Consult-Critical Careon 12-0 Consult-Critical Care Service: Service: [...] MAP >70 (more content not included)... Normal [facility] Discharge [id number] Discharge Profile2 Discharge Orders: Anticipated Discharge Date: Anticipated Discharge [id number] Problem List: Admitting Dx: Renal cell carcinoma: [...] WORRISOME - NOTIFY YOUR PHYSICIAN OR RESIDENT CAMPUS REP. - Fever greater than 101 F or 38.3 C, chills, nausea, vomiting, or feeling ill. - Inability to urinate. - Drainage of foul smelling fluid (pus) from the incision or drain sites. - Excruciating pain that is not controlled by prescription or [id number] medications. - You were sent home on [...] appointments, please call our Main Office at [phone]. Provider FINAL REVIEW of Orders: Final Review: Final Review of Medication Reconciliation and Orders Completedby Physician Reviewing ProviderClau Diallo MD (Resident) at 06-Feb-2022 13:52:19 Appointments: Follow-Up Appointment 01: Physician/Dept/ServiceDr. Hernandez Reason for Referralpost op follow up Call to Schedule in2 weeks Phone [phone] CommentsPlease call to schedule appointment Follow-Up Appointment 02: Physician/Dept/[facility] physician Reason for ReferralHospital follow up - blood pressure Call to Schedule in2-3 days CommentsPlease call to schedule Electronic Signatures: Gini Escalante ([facility]) (Signed 10-Feb-2022 11:42) Authored: Discharge Orders, Appointments Clau Diallo ( (Resident)) (Signed 06-Feb-2022 13:52) Authored: Discharge Orders, Urology, Provider FINAL REVIEW of Orders, Gold Form - Nuclear Equipment Test Engineer Summary Last Updated: 10-Feb-2022 11:42 by Gini Escalante ([facility]) Normal [facility] GLUCOSE-POCTon 02-06-2022 Glucose [Mass/Vol] 133 mg/dL High 74 - 99 [facility] Comment on above: Performed By: #### G STEFANI #### [facility] [address] [place] [address] Order Reconciliationon 02-06 Order Reconciliation Page 1 Discharge Reconciliation Document Reconciliation Type: Discharge requested on behalf of Gini Escalante (Advanced Practice Nurse) done by Gini Escalante ([facility]) Discharge - Reconciliation: 06-Feb-2022 13:48 by: Clau Diallo ( (Resident)) Discharge - Reset to Incomplete: 09-Feb-2022 12:41 by: Gini Escalante ([facility]) Discharge - Partial Reconciliation: 09-Feb-2022 12:42 by: Gini Escalante ([facility]) Discharge - Partial Reconciliation: 10-Feb-2022 11:06 by: Luís Siegel (DO (Resident)) Discharge - Partial Reconciliation: 10-Feb-2022 11:17 by: Luís Siegel (DO (Resident)) Discharge - Reconciliation: 10-Feb-2022 11:21 by: Gini Escalante ([employer]) Home Medications [facility] MEDICATIONS AT DISCHARGE DateReconciliation Comment/ Additional Information [...] not requir (more content not included)... Normal [facility] Order Reconciliation Page 1 Admission Reconciliation Document Reconciliation Type: Admission from OR requested on behalf of Clau Diallo (Resident) done by Clau Diallo (Resident)) Admission from OR - Reconciliation: 06-Feb-2022 13:42 by: Clau Diallo ( (Resident)) Home MedicationsEnteredLast Dose TakenReconciled with current Order Reconciliation Comment/ Additional Information Cabometyx 20 mg oral tablet 1 tab(s) orally once a [id number] AM Reviewed and Held carvedilol 6.25 mg oral tablet 1 tab(s) orally once a [id number]-Feb-2022 AM Carvedilol - PEDS Tablet (COREG)DOSE = 6.25 mg Oral DailyCa.0543 mg/Kg/DOSE x 115 Kg = 6.25 mg/Dose (Daily Total is 6.25 mg) Weight type: Med Calc Weightcarvedilol 6.25 mg oral tablet continued as the inpatient order Carvedilol - PEDS cyclobenzaprine 10 mg oral tablet 1 tab(s) orally 3 times a [id number]-Feb-2022 AM Cyclobenzaprine Tablet (FLEXERIL)DOSE = 10 mg Oral 3 Times a Daycyclobenzaprine 10 mg oral tablet continued as the inpatient order Cyclobenzaprine ibuprofen 800 mg oral tablet 1 tab(s) orally 3 times a day, As Needed 2021 Reviewed and Held lovastatin 10 mg oral tablet 1 tab(s) orally once a [id number] Atorvastatin Tablet (LIPITOR)DOSE = 10 mg Oral At Bedtimelovastatin 10 mg oral tablet continued as the inpatient order Atorvastatin pantoprazole 40 mg oral delayed release tablet 1 tab(s) orally once a day [id number] Pantoprazole Enteric Coated Tablet (PROTONIX)DOSE = 40 mg Oral Dailypantoprazole 40 mg oral delayed release tablet continued as the inpatient order Pantoprazole spironolactone 25 mg oral tablet 1 tab(s) orally once a [id number]-Feb-2022 AM Spironolactone Tablet (ALDACTONE)DOSE = 25 mg Oral Daily spironolactone 25 mg oral tablet continued as the inpatient order Spironolactone warfarin 5 mg oral tablet 1 tab(s) orally once a [id number] Reviewed and Held Additional Current Orders Acetaminophen [...] Electrocardiogram 12 Lead RoutineClinical Indications: ACS SymptomsNotify if performed fentaNYL Injectable (SUBLIMAZE)DOSE = 50 microgram(s) IntraVenous Push Every 5 Minutes, PRN Pain - Severe (7-10) (PACU)Clinician Notes: Lurdes-operative order ONLYMax total of 200 micrograms r (more content not included)... Normal [facility] PT/INRon 02-06-2022 PT Coag (PPP) [Time] 14.3 s High 9.8 - 13.4 [facility] Comment on above: Performed By: #### P TINR ####[id number] [place] [address] PT, INR 1.2 High 0.9 - 1.1 [facility] Comment on above: Performed By: #### P TINR ####[id number] [place] [address] Patient Profile - Preop v3on 02-06-2022 Patient Profile - Preop v3 Patient Profile - Preop: Initial Info: Patient DemographicsName: YEFRI YANEZ Date: 1965 Address: [facility] NATHANIEL JIMENEZ, [facility] Primary Phone [phone] Instructions Givenanticoagulant meds - patient advised to consult ordering provider, appropriate clothing, bring glasses/contacts case, bring list of medications, center location, diabetes meds - patient advised to consult ordering provider, insurance information, remove jewerly/piercings How to be AddressedTHOMAS Spoken Language PreferredEnglish Source of Informationpatient Stated Reason for AdmissionREMOVAL OF RIGHT KIDNEY Primary Contact Name and Numbersonya [phone] Limitations on Visitors/Phone Callsnone Medications Brought to Hospitalno General Health: Weight in kg115 kilogram(s) Weight in ryj002.5 pound(s) Weight Methodstated Scale Typechair Height in feet5 feet Height in gpatwq56 inch(es) Height in cm177.8 centimeter(s) Height Methodstated BMI (kg/m2)36.377 square meter Patient or Family Member Reaction to Anesthesianever had anesthesia Blood Avoidance/Restrictionsnon e Previous Transfusion Reactionnever had blood Health Mgmt: Symptoms/Conditions [place] [facility] [place] Barriers to Managing Healthnone Relationship/Environ: Lives Withspouse Living Arrangementshouse Resource/Environmental Concernsnone Anticipated Transition [place] [facility] Anticipated at [facility] Tobacco Use: Tobacco Useyes Last Tobacco [id number]-[id number]-2892 Tobacco CommentSONALI, VAPING Pre-op Checklist: Arrival [id number] Arrival Time10:02 Procedure TypeRT LAPAROSCOPIC NEPHRECTOMY NPOyes Last Food [id number] 19:30 Last Clear Fluid [id number] 06:30 ID Band On Patientpatient ID (name), [...] 06-Feb-2022 10:06 by Ivette Elizondo (JOHN) Normal [facility] RENAL FUNCTION PANELon 02-06 Albumin [Mass/Vol] 3.8 g/dL Normal 3.4 - 5.0 [facility] Comment on above: Performed By: #### C BC #### [address] [address] Anion gap [Moles/Vol] 10 mmol/L Normal 10 - 20 [facility] Comment on above: Performed By: #### C BC #### [address] [address] Calcium [Mass/Vol] 8.6 mg/dL Normal 8.6 - 10.3 [facility] Comment on above: Performed By: #### C BC #### [address] [address] Chloride [Moles/Vol] 106 mmol/L Normal 98 - 107 [facility] Comment on above: Performed By: #### C BC #### [address] [address] Creatinine [Mass/Vol] 1.38 mg/dL High 0.50 - 1.30 [facility] Comment on above: Performed By: #### C BC #### [address] [address] GFR/1.73 sq M.predicted among non-blacks MDRD (S/P/Bld) [Vol rate/Area] 59 mL/min/{1.73_m2} Abnormal >90 [facility] Comment on above: Result Comment: CALC ULATIONS OF ESTIMATED GFR ARE PERFORMED USING THE 2020 CKD-EPI STUDY REFIT EQUATION WITHOUT THE RACE VARIABLE FOR THE IDMS-TRACEABLE CREATININE METHODS. https://jasn.asnjournals.org/content//ASN.2020 961654 Performed By: #### C BC #### [address] [address] Glucose [Mass/Vol] 138 mg/dL High 74 - 99 [facility] Comment on above: Performed By: #### C BC #### [address] [address] HCO3 (Bld) [Moles/Vol] 31 mmol/L Normal 21 - 32 [facility] Comment on above: Performed By: #### C BC #### [address] [address] Phosphate [Mass/Vol] 4.9 mg/dL Normal 2.5 - 4.9 [facility] Comment on above: Result Comment: The performance characteristics of phosphorus testing in heparinized plasma have been validated by the individual laboratory site where testing is performed. Testing on heparinized plasma is not approved by the FDA; however, such approval is not necessary. Performed By: #### C BC #### [address] [address] Potassium [Moles/Vol] 4.0 mmol/L Normal 3.5 - 5.3 [facility] Comment on above: Performed By: #### C BC #### [address] [address] Sodium [Moles/Vol] 143 mmol/L Normal 136 - 145 [facility] Comment on above: Performed By: #### C BC #### [address] [address] Urea nitrogen [Mass/Vol] 23 mg/dL Normal 6 - 23 [facility] Comment on above: Performed By: #### C BC #### [address] [place] [address] TYPE + SCREENon 02-06-2022 ABO TYPE O Normal [facility] Comment on above: Performed By: #### T +S #### [address] [place] [address] RH TYPE Positive Normal [facility] Comment on above: Performed By: #### T +S #### [address] [place] [address] [facility] Surgical Pathology Depar tmenton 02-06-2022 [facility] Surgical Pathology Department Name YEFRI YANEZ Pathologist: CYNTHIA LOPEZ MD Date of Procedure: 02/06/2022 Date Received: 02/06/2022 Date Reported 02/19/2022 Submitting Physician: ARAVIND HERNANDEZ MD Location: [facility] Other External # FINAL DIAGNOSIS A. [...] glomerulosclerosis Vascular disease: Mild to moderate arteriosclerosis Cardiovascular Surgeon Blocks: Normal Block: A8 Tumor Block: A3 Electronically Signed Out By CYNTHIA LOPEZ MD/KOKO By the signature on this report, the individual or group listed as making the Final Interpretation/Diagnosis certifies that they have reviewed this case. Diagnostic interpretation performed at [address] [place] [id number] Clinical History: renal cell carcinoma Specimens Submitted [...] nodes are found. Photographs have been taken. Cardiovascular Surgeon sections are submitted in 8 cassettes. WXK/DJO Summary of Cassettes: Specimen Label Site A 1 ureter margin 2 vascular margins 3-4 mass in relation to lurdes-renal fat (A3 with tumor deposit in lurdes-renal fat) 5-6 mass in relation to lurdes-hilar fat 7 tumor with adjacent kidney parenchyma 8 normal kidney parenchyma djo/02/10/[address] [facility] Department of Pathology [id number] [place] [id number] [facility] Comment on above: Performed By: #### U [facility] #### [facility] Surgical Pathology Department [address] [place], [place] [id number] Dougie 02-05-2022 CNPN [facility] CNPN Telephone (CARMOB) ----- YEFRI YANEZ ([id number]) 1965 M [facility] Date Time Provider Department 02/05/22 SAYRA TELLO During your visit today, we recorded the following information about you: Abbey Nash 02/05/2022 12:41 PM Signed Patient's Miya left a voicemail stating that she has questions about the patient's upcoming appointment with Dr. Tello. Please call her at [phone]. Florian Mello RN 02/09/2022 2:26 PM Signed [...] Fully Assessed Reason for Visit: Patient Question [8007] Prescriptions as of 02/17/2022 - torsemide (DEMADEX) [...] Encounter Status:Closed by FLORIAN MELLO on 02/17/22 [facility] CORONAVIRUS 2019, SCREEN ASY MPTOMATICon 02-04-2022 SARS-CoV-2 (COVID-19) RNA SANDOVAL+probe Ql (Unsp spec) Not detected Normal Not Detected [facility] Comment on above: Result Comment: . This assay is designed to detect the ORF1a/b and E genes of SARS-CoV-2 via nucleic acid amplification. A Not Detected result does not preclude 2019-nCoV infection since the adequacy of sample collection and/or low viral burden may result in presence of viral nucleic acids below the clinical sensitivity of this test method. Fact sheet for providers: https://www.fda.gov/media/473868/download Fact sheet for patients: https://www.fda.gov/media/259079/download This test has received FDA Emergency Use Authorization (EUA) and has been verified for use by [facility] ([facility]). This test is only authorized for the duration of time that circumstances exist to justify the authorization of the emergency use of in vitro diagnostic tests for the detection of SARS-CoV-2 virus and/or diagnosis of COVID-19 infection under section 564(b)(1) of the Act, 21 U.S.C. 360bbb-3(b)(1), unless the authorization is terminated or revoked sooner. [facility] is certified under CLIA-88 as qualified to perform high complexity testing. Testing is performed in the [facility] laboratories located at [address] [place] [address]. Performed By: #### C OVSC #### [place] [address] Lab Specimen Source Nasal, Nasopharyngeal [facility] Comment on above: Performed By: #### C OVSC #### [place] [address] Coronavirus 2019 RNA by PCR, Screening Asymptomticon 02-04-2022 Coronavirus 2019 RNA by PCR, Screening Asymptomtic Not detected Normal See Below JC-Jdslnlw-P yamila SJW 400 DO Work Phone: Comment [...] this test method. Fact sheet for providers: https://www.fda.gov/media/115534/download Fact sheet for patients: https://www.fda.gov/media/658381/download This test has received FDA Emergency Use Authorization (EUA) and has been verified for use by [facility] ([facility]). This test is only authorized for the duration of time that circumstances exist to justify the authorization of the emergency use of in vitro diagnostic tests for the detection of SARS-CoV-2 virus and/or diagnosis of COVID-19 infection under section 564(b)(1) of the Act, 21 U.S.C. 360bbb-3(b)(1), unless the authorization is terminated or revoked sooner.[facility] is certified under CLIA-88 as qualified to perform high complexity testing. Testing is performed in the [facility] laboratories located at [address] [place] [address]. Covid 19 Resultson 2 SARS-CoV-2 (COVID-19) RNA [...] also be contacted by the [facility] to see if any of your [...] or Naproxen (Aleve) can also be used. Fcfy-awx-rkwqpae cough and cold medicines can be used according to the instructions on the package. Some fjqx-nbs-urmbmud medicines also contain acetaminophen. Make sure you [...] water are not available, use alcohol-based hand vp integrity. Avoid touching your eyes, nose, and mouth [...] 24 felisa (more content not included)... [facility] Chart Updateon 02-03-2022 Chart Update Chart [...] between urology, medical oncology, radiation oncology at [facility] was local therapy to metastatic sites and cytoreductive nephrectomy. 12/08/2021-echo with EF 35%, LV and RV enlargement and hypokinesis 12/26/2021-patient completed radiation to chest wall and L4 lesion Patient has remained on cabo Patient was scheduled for nephrectomy with Dr. Adriana Hodge, due to insurance issues patient could not be operated on at [facility], referred to [facility] for neph[facility]. 01/19/2022-patient scheduled for laparoscopic nephrectomy 02/0301/20/2022-patient presented to [place] ER with shortness of breath 01/27/2022-patient presented to [facility] with persistence of subjective dyspnea, expiratory wheezing 01/29/2022-patient represented to [place] ED with chest tightness and shortness of [...] with radiation therapy. Plan previously developed at [facility] was 4 local treatment to masses [...] Feb 03 2022 8:52AM EST (Author) Normal [employer] Absolute lymphocyte countOrd ered By: Dr. Bass on 01-29-2022 Lymphocytes Auto (Unsp spec) [#/Vol] 0.78 10*3/uL 0.83-4.51 [facility] Basophil percentageOrdered B y: Dr. Bass on 01-29-2022 Basophils/100 WBC (Bld) 0.3 % 0-1 [facility] Chloride [Moles/Vol] 102 mmol/L 98-107 [facility] Eosinophils/100 WBC (Bld) 0.1 % 0-5 [facility] Glucose [Mass/Vol] 148 mg/dL 74-106 [facility] Comment on above: Fasting Glucose resu lt greater than or equal to 126 mg/dL suggests DIABETES MELLITUS per A.D.A. criteria. Neutrophils (Bld) [#/Vol] 8.6 10*3/uL 2.0-7.7 [facility] Neutrophils/100 WBC (Bld) 85.8 % 47-70 [facility] Potassium [Moles/Vol] 3.5 mmol/L 3.5-5.1 [facility] Comment on above: Slight Hemolysis, Re sult may be falsely increased. Sodium [Moles/Vol] 142 mmol/L 136-145 [facility] WBC (Bld) [#/Vol] 10.0 10*3/uL 4.4-11.0 [facility] Blood erythrocytes count (nu mber/volume)Ordered By: Dr. Bass on 01-29-2022 RBC (Bld) [#/Vol] 4.81 10*6/uL 4.6-6.2 [facility] Blood hemoglobin measurement (mass/volume)Ordered By: Dr. Bass on 01-29-2022 Hemoglobin (Bld) [Mass/Vol] 15.0 g/dL 13.0-16.5 [facility] Blood lymphocytes/100 leukoc ytesOrdered By: Dr. Bass on 01-29-2022 Lymphocytes/100 WBC (Bld) 7.8 % 19-41 [facility] Blood monocytes/100 leukocyt esOrdered By: Dr. Bass on 01-29-2022 Monocytes/100 WBC (Bld) 4.3 % 0-10 [facility] Blood platelet mean volumeOr dered By: Dr. Bass on 01-29-2022 Platelet mean volume (Bld) [Entitic vol] 10.9 fL 6.2-12.0 [facility] Determination of erythrocyte mean corpuscular volume (MCV)Ordered By: Dr. Bass on 01-29-2022 MCV (RBC) [Entitic vol] 94.2 fL 80-94 [facility] Hematocrit Auto (Bld) [Volum e fraction]Ordered By: Dr. Bass on 01-29-2022 Hematocrit (Bld) [Volume fraction] 45.3 % 40-54 [facility] INR in Blood by Coagulation assayOrdered By: Dr. Bass on 01-29-2022 INR Coag (Bld) [Relative time] 1.2 {INR} [facility] Influenza virus A and B and SARS-CoV-2 (COVID-19) Ag panel - Upper respiratory specimOrdered By: Dr. Bass on 01-29-2022 SARS-CoV-2 (COVID-19) RNA SANDOVAL+probe Ql (Resp) [facility] Laboratory - Chemistry and C hemistry - challengeOrdered By: Dr. Bass on 01-29-2022 CO2 [Moles/Vol] 36.0 mmol/L 21.0-32.0 [facility] Natriuretic peptide B (Bld) [Mass/Vol] 378.8 pg/mL 0-100 [facility] Urea nitrogen/Creatinine [Mass ratio] 17.4 mg/mg 10-20 [facility] Laboratory - CoagulationOrde red By: Dr. Bass on 01-29-2022 PT Coag (PPP) [Time] 15.3 s 11.7-14.9 [facility] Laboratory - Hematology and Cell countsOrdered By: Dr. Bass on 01-29-2022 Erythrocyte distribution width (RBC) [Entitic vol] 55.1 fL 35.1-43.9 [facility] Erythrocyte distribution width (RBC) [Ratio] 16.4 % 11.6-14.6 [facility] Immature granulocytes/100 WBC (Bld) 1.700 % 0.0-0.9 [facility] Comment on above: IG% - Immature Granu locytes (promyelocytes, myelocytes and metamyelocytes) > 1% indicates that a LEFT SHIFT is Present. MCH (RBC) [Entitic mass] 31.2 pg 27.0-32.0 [facility] Nucleated RBC/100 WBC (Bld) [Ratio] 1.2 % 0-5 [facility] MCHC Auto (RBC) [Mass/Vol]Or dered By: Dr. Bass on 01-29-2022 MCHC (RBC) [Mass/Vol] 33.1 g/dL 32-36 [facility] No Panel InformationOrdered By: Dr. Bass on 01-29-2022 Estimated Creatinine Clearance Calc 76.27 ml/min [facility] Estimated GFR (MDRD) Amer 89 mL/min >60 [facility] Comment on above: GFR Calc Estimated GFR (MDRD) Non-Af Amer 74 mL/min >60 [facility] Comment on above: Non- GFR Calc Troponin I High Sensitivity 69 pg/mL 3.0-78.0 [facility] Comment on above: Please Note: New [place] t Units and Gender Specific Reference Ranges. For more information see Policy Stat Procedure [place] High Sensitivity Troponin (TNIH) and attachments. Platelets bldOrdered By: Dr. Bass on 01-29-2022 Platelets (Bld) [#/Vol] 166 10*3/uL 150-450 [facility] Serum or plasma calcium cory urement (mass/volume)Ordered By: Dr. Bass on 01-29-2022 Calcium [Mass/Vol] 9.0 mg/dL 8.5-10.1 [facility] Serum or plasma creatinine m easurement (mass/volume)Ordered By: Dr. Bass on 01-29-2022 Creatinine [Mass/Vol] 1.09 mg/dL 0.70-1.30 [facility] Comment on above: The validity of the calculated GFR & GFRAA in patients over 70 years has not been determined. Clinical correlation is essential. Serum or plasma urea nitroge n measurement (mass/volume)Ordered By: Dr. Bass on 01-29-2022 Urea nitrogen [Mass/Vol] 19 mg/dL 7-18 [facility] Thin prep Papanicolaou smear with manual screeningOrdered By: Dr. Bass on 01-29-2022 Thin prep Papanicolaou smear with manual screening 4 5-15 [facility] Cult, Urineon 01-27-2022 Bacteria identified Cx Nom (U) CS-Pnpdfvn-C Dauria AerospacelaVidible SJW 400 DO Work Phone: Laboratory - Blood bankon ABO group Nom (Bld) O MP-Ur ology-W estRuangguru SJW 400 DO Work Phone: Blood group antibody screen Ql Negative WZ-Fmeonxa-S Flatter WorldW 400 DO Work Phone: Rh immune globulin screen (Bld) [Interp] Positive MP-Urology -W estlaVidible SJW 400 DO Work Phone: TYPE + SCREENon 01-27-2022 ABO TYPE O Normal [facility] Comment on above: Performed By: #### C #### [address] [place] [id number] RH TYPE Positive Normal [facility] Comment on above: Performed By: #### C BC #### [address] [place] [id number] URINE CULTURE,BACTERIALon URINE CULTURE,BACTERIAL PATIENT: YEFRI BREEN LOCATION: [facility]#: [id number] : 63 AGE: SEX: M ORDERED BY: ARAVIND HERNANDEZ SOURCE: URINE COLLECTED: 01/27/22 11:26 ANTIBIOTICS AT JASMIN.: RECEIVED : 01/27/22 19:27 SITE: R E S U L T S URINE CULTURE,BACTERIAL FINAL 01/28/22 12:54 NO SIGNIFICANT GROWTH. Normal [facility] Comment on above: Performed By: #### C BC #### [place] [id number] CNPTOUTREACHon 01-23-2022 CNPTOUTREACH [facility] Absolute lymphocyte countOrd ered By: Dr. Carvajal on 01-20-2022 Lymphocytes Auto (Unsp spec) [#/Vol] 1.04 10*3/uL 0.83-4.51 [facility] Basophil percentageOrdered B y: Dr. Carvajal on 01-20-2022 Basophils/100 WBC (Bld) 0.4 % 0-1 [facility] Chloride [Moles/Vol] 104 mmol/L 98-107 [facility] Eosinophils/100 WBC (Bld) 1.3 % 0-5 [facility] Glucose [Mass/Vol] 113 mg/dL 74-106 [facility] Comment on above: Fasting Glucose resu lt from 100 to 125 mg/dL suggests IMPAIRED HOMEOSTASIS per A.D.A. criteria. Neutrophils (Bld) [#/Vol] 3.0 10*3/uL 2.0-7.7 [facility] Neutrophils/100 WBC (Bld) 66.2 % 47-70 [facility] Potassium [Moles/Vol] 3.5 mmol/L 3.5-5.1 [facility] Comment on above: Moderate Hemolysis, Result may be falsely increased. Sodium [Moles/Vol] 142 mmol/L 136-145 [facility] WBC (Bld) [#/Vol] 4.5 10*3/uL 4.4-11.0 [facility] Blood erythrocytes count (nu mber/volume)Ordered By: Dr. Carvajal on 01-20-2022 RBC (Bld) [#/Vol] 5.09 10*6/uL 4.6-6.2 [facility] Blood hemoglobin measurement (mass/volume)Ordered By: Dr. Carvajal on 01-20-2022 Hemoglobin (Bld) [Mass/Vol] 15.6 g/dL 13.0-16.5 [facility] Blood lymphocytes/100 leukoc ytesOrdered By: Dr. Carvajal on 01-20-2022 Lymphocytes/100 WBC (Bld) 23.2 % 19-41 [facility] Blood monocytes/100 leukocyt esOrdered By: Dr. Carvajal on 01-20-2022 Monocytes/100 WBC (Bld) 8.5 % 0-10 [facility] Blood platelet mean volumeOr dered By: Dr. Carvajal on 01-20-2022 Platelet mean volume (Bld) [Entitic vol] 10.2 fL 6.2-12.0 [facility] Determination of erythrocyte mean corpuscular volume (MCV)Ordered By: Dr. Carvajal on 01-20-2022 MCV (RBC) [Entitic vol] 91.2 fL 80-94 [facility] EKGon 01-20-2022 Atrial Rate 127 BPM [facility] Calculated R Boomer 80 degrees [facility] Calculated T Boomer 77 degrees [facility] QRS Duration 102 ms [facility] QT Interval 366 ms [facility] QTC Calculation (Bazett) 459 ms [facility] Ventricular Rate 95 BPM [facility] Atrial fibrillation Abnormal ECG No previous ECGs available Confirmed by RAINER PRINGLE MD ([id number]) on 01/20/2022 8:35:54 AM [facility] CARDIOLOG[facility] NAME : MIREYA YANEZ PID : [id number] : 1965 Gender : Male Race : ORD : Procedure Date : Jan 19 2022 11:29:03 Edit Date : Jan 20 2022 08:35:56 Diagnosis: Atrial fibrillation Abnormal ECG No previous ECGs available Confirmed by RAINER PRINGLE MD ([id number]) on 01/20/2022 8:35:54 AM Test Reason : RT Location : 18 : CDL Overread By : RAINER PRINGLE MD Edited By : RAINER PRINGLE MD Referred By : KITTY VALDEZ Acquired by : MARCELINO CRAIN [facility] Hematocrit Auto (Bld) [Volum e fraction]Ordered By: Dr. Carvajal on 01-20-2022 Hematocrit (Bld) [Volume fraction] 46.4 % 40-54 [facility] INR in Blood by Coagulation assayOrdered By: Dr. Carvajal on 01-20-2022 INR Coag (Bld) [Relative time] 1.5 {INR} [facility] Influenza virus A and B and SARS-CoV-2 (COVID-19) Ag panel - Upper respiratory specimOrdered By: Dr. Carvajal on 01-20-2022 SARS-CoV-2 (COVID-19) RNA SANDOVAL+probe Ql (Resp) [facility] Laboratory - Chemistry and C hemistry - challengeOrdered By: Dr. Carvajal on 01-20-2022 CO2 [Moles/Vol] 30.0 mmol/L 21.0-32.0 [facility] Natriuretic peptide B (Bld) [Mass/Vol] 272.4 pg/mL 0-100 [facility] Urea nitrogen/Creatinine [Mass ratio] 12.7 mg/mg 10-20 [facility] Laboratory - CoagulationOrde red By: Dr. Carvajal on 01-20-2022 PT Coag (PPP) [Time] 17.4 s 11.7-14.9 [facility] Laboratory - Hematology and Cell countsOrdered By: Dr. Carvajal on 01-20-2022 Erythrocyte distribution width (RBC) [Entitic vol] 52.1 fL 35.1-43.9 [facility] Erythrocyte distribution width (RBC) [Ratio] 15.9 % 11.6-14.6 [facility] Immature granulocytes/100 WBC (Bld) 0.400 % 0.0-0.9 [facility] Comment on above: IG% - Immature Granu locytes (promyelocytes, myelocytes and metamyelocytes) > 1% indicates that a LEFT SHIFT is Present. MCH (RBC) [Entitic mass] 30.6 pg 27.0-32.0 [facility] Nucleated RBC/100 WBC (Bld) [Ratio] 0 % 0-5 [facility] MCHC Auto (RBC) [Mass/Vol]Or dered By: Dr. Carvajal on 01-20-2022 MCHC (RBC) [Mass/Vol] 33.6 g/dL 32-36 [facility] No Panel InformationOrdered By: Dr. Carvajal on 01-20-2022 Estimated Creatinine Clearance Calc 75.58 ml/min [facility] Estimated GFR (MDRD) Amer 88 mL/min >60 [facility] Comment on above: GFR Calc Estimated GFR (MDRD) Non-Af Amer 73 mL/min >60 [facility] Comment on above: Non- GFR Calc Troponin I High Sensitivity 58 pg/mL 3.0-78.0 [facility] Comment on above: Please Note: New [place] t Units and Gender Specific Reference Ranges. For more information see Policy Stat Procedure [place] High Sensitivity Troponin (TNIH) and attachments. Platelets bldOrdered By: Dr. Carvajal on 01-20-2022 Platelets (Bld) [#/Vol] 180 10*3/uL 150-450 [facility] Serum or plasma calcium cory urement (mass/volume)Ordered By: Dr. Carvajal on 01-20-2022 Calcium [Mass/Vol] 8.8 mg/dL 8.5-10.1 [facility] Serum or plasma creatinine m easurement (mass/volume)Ordered By: Dr. Carvajal on 01-20-2022 Creatinine [Mass/Vol] 1.10 mg/dL 0.70-1.30 [facility] Comment on above: The validity of the calculated GFR & GFRAA in patients over 70 years has not been determined. Clinical correlation is essential. Serum or plasma urea nitroge n measurement (mass/volume)Ordered By: Dr. Carvajal on 01-20-2022 Urea nitrogen [Mass/Vol] 14 mg/dL 7-18 [facility] Thin prep Papanicolaou smear with manual screeningOrdered By: Dr. Carvajal on 01-20-2022 Thin prep Papanicolaou smear with manual screening 8 5-15 [facility] CNCOon 01-19-2022 CNCO Letter Text [facility] EKGon 01-19-2022 Electrocardiogram Ventricular Rate : 9 5 BPM Atrial Rate : 127 BPM QRS Duration : 102 ms Q-T Interval : 366 ms QTC Calculation(Bazett) : 459 ms Calculated R Boomer : 80 degrees Calculated T Boomer : 77 degrees Atrial fibrillation Abnormal ECG No previous ECGs available Confirmed by RAINER PRINGLE MD ([id number]) on 01/20/2022 8:35:54 AM NAME : YEFRI YANEZ PID : [id number] : 1965 Gender : Male Race : ORD : Procedure Date : Jan 19 2022 11:29:03 Edit Date : Jan 20 2022 08:35:56 Diagnosis: Atrial fibrillation Abnormal ECG No previous ECGs available Confirmed by RAINER PRINGLE MD ([id number]) on 01/20/2022 8:35:54 AM Test Reason : RT Location : 18 : [facility] Overread By : RAINER PRINGLE MD Edited By : RAINER PRINGLE MD Referred By : KITTY VALDEZ Acquired by : MARCELINO CRAIN [facility] XR CHEST 2V FRONTAL/LATon XR CHEST 2V [...] Right chest wall mass is grossly stable. 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: DANITZA Transcribe Date/Time: Jan 19 2022 11:14A Dictated by : LUMA SHANKS MD This examination was interpreted and the report reviewed and electronically signed by: LUMA SHANKS MD on Jan 19 2022 11:15AM EST [id number] [facility] 12-30-2021 [facility] Normal [facility] 12-28-2021 [facility]2021 [facility] Telephone ([facility]) ----- YEFRI YANEZ ([id number]) 1965 M [facility] Date Time Provider Department 12/25/21 MIKAL MORRIS During your visit today, we recorded the following information about you: Abbey Nash 12/25/2021 7:45 AM Signed Patient walked in to schedule an appointment with a 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 Patient's insurance changed was seen at [facility] but now that location is out of [...] Encounter Status:Closed by ADRIENNE BEACH on 12/25/21 [facility] Absolute lymphocyte counton 12-09-2021 Lymphocytes Auto (Unsp spec) [#/Vol] 1.42 10*3/uL 0.83-4.51 [facility] Work Phone: Basophil percentageon 2021 Basophil percentage 3.9 mg/dL 2.5-4.9 [facility] Work [facility]: Basophils/100 WBC (Bld) 0.5 % 0-1 [facility] Work Phone: Chloride [Moles/Vol] 109 mmol/L 98-107 [facility] Work Phone: Eosinophils/100 WBC (Bld) 1.5 % 0-5 [facility] Work Phone: Glucose [Mass/Vol] 121 mg/dL 74-106 [facility] Work Phone: Comment on above: Fasting Glucose resu lt from 100 to 125 mg/dL suggests IMPAIRED HOMEOSTASIS per A.D.A. criteria. Neutrophils (Bld) [#/Vol] 4.0 10*3/uL 2.0-7.7 [facility] Work Phone: Neutrophils/100 WBC (Bld) 67.8 % 47-70 [facility] Work Phone: Potassium [Moles/Vol] 3.8 mmol/L 3.5-5.1 [facility] Work Phone: Sodium [Moles/Vol] 142 mmol/L 136-145 [facility] Work Phone: WBC (Bld) [#/Vol] 5.9 10*3/uL 4.4-11.0 [facility] Work Phone: Blood erythrocytes count (nu mber/volume)on 12-09-2021 RBC (Bld) [#/Vol] 5.22 10*6/uL 4.6-6.2 [facility] Work Phone: Blood hemoglobin measurement (mass/volume)on 12-09-2021 Hemoglobin (Bld) [Mass/Vol] 16.0 g/dL 13.0-16.5 [facility] Work Phone: Blood lymphocytes/100 leukoc yteson 12-09-2021 Lymphocytes/100 WBC (Bld) 24.1 % 19-41 [facility] Work Phone: Blood monocytes/100 leukocyt eson 12-09-2021 Monocytes/100 WBC (Bld) 5.8 % 0-10 [facility] Work Phone: Blood platelet mean volumeon 12-09-2021 Platelet mean volume (Bld) [Entitic vol] 11.1 fL 6.2-12.0 [facility] Work Phone: CNOVon 12-09-2021 CNOV Office Visit (RODRIGO ) ----- YEFRI YANEZ ([id number]) 1965 M [facility] Date Time Provider Department [...] He was evaluated in the ER at [facility]. As part of his work-up a CT [...] acute dist (more content not included)... Normal [facility] Determination of erythrocyte mean corpuscular volume (MCV)on 12-09-2021 MCV (RBC) [Entitic vol] 90.6 fL 80-94 [facility] Work Phone: Hematocrit Auto (Bld) [Volum e fraction]on 12-09-2021 Hematocrit (Bld) [Volume fraction] 47.3 % 40-54 [facility] Work Phone: INR in Blood by Coagulation assayon 12-09-2021 INR Coag (Bld) [Relative time] 2.4 {INR} [facility] Work Phone: Laboratory - Chemistry and C hemistry - challengeon 12-09-2021 CO2 [Moles/Vol] 26.0 mmol/L 21.0-32.0 [facility] Work Phone: [phone] Magnesium [Mass/Vol] 1.9 mg/dL 1.6-2.6 [facility] Work Phone: Urea nitrogen/Creatinine [Mass ratio] 15.0 mg/mg 10-20 [facility] Work Phone: Laboratory - Coagulationon 1 PT Coag (PPP) [Time] 25.6 s 11.7-14.9 [facility] Work Phone: Laboratory - Hematology and Cell countson 12-09-2021 Erythrocyte distribution width (RBC) [Entitic vol] 54.5 fL 35.1-43.9 [facility] Work Phone: Erythrocyte distribution width (RBC) [Ratio] 16.5 % 11.6-14.6 [facility] Work Phone: [phone] Immature granulocytes/100 WBC (Bld) 0.300 % 0.0-0.9 [facility] Work Phone: Comment on above: IG% - Immature Granu locytes (promyelocytes, myelocytes and metamyelocytes) > 1% indicates that a LEFT SHIFT is Present. MCH (RBC) [Entitic mass] 30.7 pg 27.0-32.0 [facility] Work Phone: Nucleated RBC/100 WBC (Bld) [Ratio] 0 % 0-5 [facility] Work Phone: MCHC Auto (RBC) [Mass/Vol]on 12-09-2021 MCHC (RBC) [Mass/Vol] 33.8 g/dL 32-36 [facility] Work Phone: No Panel Informationon 12-09 Estimated Creatinine Clearance Calc 74.47 ml/min [facility] Work Phone: Estimated GFR (MDRD) Amer 86 mL/min >60 [facility] Work Phone: Comment on above: GFR Calc Estimated GFR (MDRD) Non-Af Amer 71 mL/min >60 [facility] Work Phone: Comment on above: Non- GFR Calc Platelets bldon 12-09-2021 Platelets (Bld) [#/Vol] 243 10*3/uL 150-450 [facility] Work Phone: Serum or plasma calcium cory urement (mass/volume)on 12-09-2021 Calcium [Mass/Vol] 9.0 mg/dL 8.5-10.1 [facility] Work Phone: Serum or plasma creatinine m easurement (mass/volume)on 12-09-2021 Creatinine [Mass/Vol] 1.13 mg/dL 0.70-1.30 [facility] Work Phone: Comment on above: The validity of the calculated GFR & GFRAA in patients over 70 years has not been determined. Clinical correlation is essential. Serum or plasma urea nitroge n measurement (mass/volume)on 12-09-2021 Urea nitrogen [Mass/Vol] 17 mg/dL 7-18 [facility] Work Phone: Telephone Encounteron 2021 Senior Outside Sales Representative Authentication Interface Message Text Patient unable to contact No voicemail to return call Invalid Number Letter sent CALI May Classroom Instructor [facility] [address] [place] [address] [place] [address] [email or web address] Normal [facility] Thin prep Papanicolaou smear with manual screeningon 12-09-2021 Thin prep Papanicolaou smear with manual screening 7 5-15 [facility] Work Phone: Absolute lymphocyte counton 12-07-2021 Lymphocytes Auto (Unsp spec) [#/Vol] 1.42 10*3/uL 0.83-4.51 [facility] Work Phone: Basophil percentageon 2021 Basophils/100 WBC (Bld) 0.5 % 0-1 [facility] Work Phone: Chloride [Moles/Vol] 108 mmol/L 98-107 [facility] Work Phone: Eosinophils/100 WBC (Bld) 0.7 % 0-5 [facility] Work Phone: Glucose [Mass/Vol] 135 mg/dL 74-106 [facility] Work Phone: Comment on above: Fasting Glucose resu lt greater than or equal to 126 mg/dL suggests DIABETES MELLITUS per A.D.A. criteria. Neutrophils (Bld) [#/Vol] 4.3 10*3/uL 2.0-7.7 [facility] Work Phone: Neutrophils/100 WBC (Bld) 70.8 % 47-70 [facility] Work Phone: Potassium [Moles/Vol] 3.5 mmol/L 3.5-5.1 [facility] Work Phone: Sodium [Moles/Vol] 142 mmol/L 136-145 [facility] Work Phone: WBC (Bld) [#/Vol] 6.1 10*3/uL 4.4-11.0 [facility] Work Phone: Blood erythrocytes count (nu mber/volume)on 12-07-2021 RBC (Bld) [#/Vol] 5.15 10*6/uL 4.6-6.2 [facility] Work Phone: Blood hemoglobin measurement (mass/volume)on 12-07-2021 Hemoglobin (Bld) [Mass/Vol] 16.0 g/dL 13.0-16.5 [facility] Work Phone: Blood lymphocytes/100 leukoc yteson 12-07-2021 Lymphocytes/100 WBC (Bld) 23.4 % 19-41 [facility] Work Phone: Blood monocytes/100 leukocyt eson 12-07-2021 Monocytes/100 WBC (Bld) 4.3 % 0-10 [facility] Work Phone: Blood platelet mean volumeon 12-07-2021 Platelet mean volume (Bld) [Entitic vol] 11.0 fL 6.2-12.0 [facility] Work Phone: Determination of erythrocyte mean corpuscular volume (MCV)on 12-07-2021 MCV (RBC) [Entitic vol] 90.5 fL 80-94 [facility] Work Phone: Hematocrit Auto (Bld) [Volum e fraction]on 12-07-2021 Hematocrit (Bld) [Volume fraction] 46.6 % 40-54 [facility] Work Phone: INR in Blood by Coagulation assayon 12-07-2021 INR Coag (Bld) [Relative time] 1.7 {INR} [facility] Work Phone: Laboratory - Chemistry and C hemistry - challengeon 12-07-2021 CO2 [Moles/Vol] 25.0 mmol/L 21.0-32.0 [facility] Work Phone: Natriuretic peptide B (Bld) [Mass/Vol] 686.4 pg/mL 0-100 [facility] Work Phone: Urea nitrogen/Creatinine [Mass ratio] 15.7 mg/mg 10-20 [facility] Work Phone: Laboratory - Coagulationon 1 PT Coag (PPP) [Time] 19.3 s 11.7-14.9 [facility] Work Phone: Laboratory - Hematology and Cell countson 12-07-2021 Erythrocyte distribution width (RBC) [Entitic vol] 54.9 fL 35.1-43.9 [facility] Work Phone: [phone] Erythrocyte distribution width (RBC) [Ratio] 16.5 % 11.6-14.6 [facility] Work Phone: [phone] Immature granulocytes/100 WBC (Bld) 0.300 % 0.0-0.9 [facility] Work Phone: [phone] Comment on above: IG% - Immature Granu locytes (promyelocytes, myelocytes and metamyelocytes) > 1% indicates that a LEFT SHIFT is Present. MCH (RBC) [Entitic mass] 31.1 pg 27.0-32.0 [facility] Work Phone: [phone] Nucleated RBC/100 WBC (Bld) [Ratio] 0 % 0-5 [facility] Work Phone: [phone] MCHC Auto (RBC) [Mass/Vol]on 12-07-2021 MCHC (RBC) [Mass/Vol] 34.3 g/dL 32-36 [facility] Work Phone: No Panel Informationon 12-07 Troponin I High Sensitivity 46 pg/mL 3.0-78.0 [facility] Work Phone: Comment on above: Please Note: New [place] t Units and Gender Specific Reference Ranges. For more information see Policy Stat Procedure [place] High Sensitivity Troponin (TNIH) and attachments. Estimated Creatinine Clearance Calc 66.26 ml/min [facility] Work Phone: [phone] Estimated GFR (MDRD) Amer 75 mL/min >60 [facility] Work Phone: [phone] Comment on above: GFR Calc Estimated GFR (MDRD) Non-Af Amer 62 mL/min >60 [facility] Work Phone: [phone] Comment on above: Non- GFR Calc Troponin I High Sensitivity 45 pg/mL 3.0-78.0 [facility] Work Phone: [phone] Comment on above: Please Note: New [place] t Units and Gender Specific Reference Ranges. For more information see Policy Stat Procedure [place] High Sensitivity Troponin (TNIH) and attachments. Platelets bldon 12-07-2021 Platelets (Bld) [#/Vol] 231 10*3/uL 150-450 [facility] Work Phone: Serum or plasma calcium cory urement (mass/volume)on 12-07-2021 Calcium [Mass/Vol] 9.6 mg/dL 8.5-10.1 [facility] Work Phone: Serum or plasma creatinine m easurement (mass/volume)on 12-07-2021 Creatinine [Mass/Vol] 1.27 mg/dL 0.70-1.30 [facility] Work Phone: Comment on above: The validity of the calculated GFR & GFRAA in patients over 70 years has not been determined. Clinical correlation is essential. Serum or plasma urea nitroge n measurement (mass/volume)on 12-07-2021 Urea nitrogen [Mass/Vol] 20 mg/dL 7-18 [facility] Work Phone: Thin prep Papanicolaou smear with manual screeningon 12-07-2021 Thin prep Papanicolaou smear with manual screening 9 5-15 [facility] Work Phone: CNPNon 12-03-2021 [facility] CNPNon 11-29-2021 [facility] [place] [facility]-24-2021 [facility] Telephone ([facility]) ----- YEFRI YANEZ ([id number]) 1965 M [facility] Date Time Provider Department 11/24/21 AMERICA SCHWARTZ [facility] During your visit today, we recorded [...] Encounter Status:Closed by AMERICA SCHWARTZ on 11/25/21 [facility] CNPNon 11-23-2021 C[facility]N [facility] CT ABD/PEL W IVCONon 022 CT ABD/PEL W IVCON Normal [facility] CT CHEST W IVCONon 2 CT CHEST W IVCON Normal [facility] No Panel Informationon 11-20 [facility] CNOVSPon 11-19-2021 CNOVSP Visit (SP) Office ([facility]) ----- YEFRI YANEZ ([id number]) 1965 M [facility] Date Time Provider Department 11/19/21 9:00 AM HAYLEE WILBURN [facility] During your visit today, we recorded the following information about you: Pulse Respiration Blood pressure Weight 76/minute 18/minute 130/82 118.8 kg Height 1.778 m [facility] Chilango MD 11/19/2021 9:58 AM Signed This note was created using InteliCloudriter. Subjective Yefri Yanez is a 56 year [...] Haylee Wilburn MD 11/19/2021 9:58 AM Signed [facility] Progress Note SERVICE DATE: November 19, 2021 [...] started treatment with cabo + nivo on [facility] Trial on 08/08/2021 at [facility]. He has baseline HTN and developed worsening HTN after starting treatment. His cabo was held on 08/18/2021, resumed on 09/11/2021. The Nivo was held on 09/11/21 due to pneumonitis, and prednisone 60 mg daily was started and tapered off within about one month. Due to insurance change, he was taken off the trial and referred to [facility] to resume the treatment. He [...] Rhythm: No (more content not included)... Normal [facility] [place] 11-06-2021 [facility] Telephone ([facility]) ----- YEFRI YANEZ ([id number]) 1965 M [facility] Date Time Provider Department 11/06/21 HAYLEE WILBURN [facility] During your visit today, we recorded the following information about you: Tania Parekh RN 11/06/2021 9:32 AM Signed Spoke with physician relations representative from [facility], she is asking that we reach [...] Encounter Status:Closed by TANIA PAREKH on 11/06/21 [facility] CNPN Telephone ([facility]) ----- YEFRI YANEZ ([id number]) 1965 M [facility] Date Time Provider Department 11/06/21 AMERICA SCHWARTZ [facility] During your visit today, we recorded [...] PA-C - Fully Assessed 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 - Other [6419] Cmt: Calling to get an update on [...] Encounter Status:Closed by AMERICA SCHWARTZ on 11/06/21 [facility] Dougie 11-03-2021 [facility] Telephone ([facility]) ----- YEFRI YANEZ ([id number]) 1965 M [facility] Date Time Provider Department 11/03/21 HAYLEE WILBURN [facility] During your visit today, we recorded [...] SCHWARTZ on 11/03/21 [facility] CNPN Telephone ([facility]) ----- YEFRI YANEZ ([id number]) 1965 M [facility] Date Time Provider Department 11/03/21 HAYLEE WILBURN [facility] During your visit today, we recorded [...] SCHWARTZ on 11/03/21 [facility] CBC W Auto Differential pane l (Bld)on 10-27-2021 Basophils (Bld) [#/Vol] 0.03 10*3/uL Normal <0.11 [facility] Comment on above: Order Comment: Speci men Type: BLOOD SPECIMENOrdering Facility: [facility] Address: [address] [place] [address] Performed By: #### 5 7021-8 ####[facility] LABCLIA [id number] [address] Basophils/100 WBC (Bld) 0.6 % Normal [facility] Comment on above: Order Comment: Speci men Type: BLOOD SPECIMENOrdering Facility: [facility] Address: [address] [place], [place] [id number] Performed By: #### 5 7021-8 ####[facility] LABCLIA [id number] [place] [address] [place] Differential cell count method Nom (Bld) Auto [facility] Comment on above: Order Comment: Speci men Type: BLOOD SPECIMENOrdering Facility: [facility] Address: [address] [place], [place] [id number] Performed By: #### 5 7021-8 ####[facility] LABCLIA [id number] [place] [address] [place] Eosinophils (Bld) [#/Vol] 0.03 10*3/uL Normal <0.46 [facility] Comment on above: Order Comment: Speci men Type: BLOOD SPECIMENOrdering Facility: [facility] Address: [address] [place], [place] [id number] Performed By: #### 5 7021-8 ####[facility] LABCLIA [id number] [address] [place] Eosinophils/100 WBC (Bld) 0.6 % [facility] Comment on above: Order Comment: Speci men Type: BLOOD SPECIMENOrdering Facility: [facility] Address: [address] [place] [address] Performed By: #### 5 7021-8 ####[facility] LABCLIA [id number] [place] [address] [place] Erythrocyte distribution width (RBC) [Ratio] 16.6 % High 11.5-15.0 [facility] Comment on above: Order Comment: Speci men Type: BLOOD SPECIMENOrdering Facility: [facility] Address: [address] [place], [place] [id number] Performed By: #### 5 7021-8 ####[facility] LABIA [id number] [address] Hematocrit (Bld) [Volume fraction] 48.6 % Normal 39.0-51.0 [facility] Comment on above: Order Comment: Speci men Type: BLOOD SPECIMENOrdering Facility: [facility] Address: [address] [place], [place] [id number] Performed By: #### 5 7021-8 ####[facility] LABIA [id number] [address] Hemoglobin (Bld) [Mass/Vol] 16.3 g/dL Normal 13.0-17.0 [facility] Comment on above: Order Comment: Speci men Type: BLOOD SPECIMENOrdering Facility: [facility] Address: [address] [place], [place] [id number] Performed By: #### 5 7021-8 ####[facility] [id number] [address] IMMATURE GRAN % 0.8 % Normal [facility] Comment on above: Order Comment: Speci men Type: BLOOD SPECIMENOrdering Facility: [facility] Address: [address] [place], [place] [address] Performed By: #### 5 7021-8 ####[facility] LABIA [id number] [address] STATES OF [facility] IMMATURE GRAN ABS 0.04 k/uL Normal <0.10 [facility] Comment on above: Order Comment: Speci men Type: BLOOD SPECIMENOrdering Facility: [facility] Address: [address] [place], [place] [address] Performed By: #### 5 7021-8 ####[facility] LABIA [id number] [address] Lymphocytes (Bld) [#/Vol] 1.62 10*3/uL Normal 1.00-4.00 [facility] Comment on above: Order Comment: Speci men Type: BLOOD SPECIMENOrdering Facility: [facility] Address: [address] [place], [place] [address] Performed By: #### 5 7021-8 ####[facility] LABCLIA [id number] [address] [place] Lymphocytes/100 WBC (Bld) 32.0 % Normal [facility] Comment on above: Order Comment: Speci men Type: BLOOD SPECIMENOrdering Facility: [facility] Address: [address] [place], [place] [address] Performed By: #### 5 7021-8 ####[facility] LABIA [id number] [address] [place] OF [facility] MCH (RBC) [Entitic mass] 30.0 pg Normal 26.0-34.0 [facility] Comment on above: Order Comment: Speci men Type: BLOOD SPECIMENOrdering Facility: [facility] Address: [address] [place], [place] [id number] Performed By: #### 5 7021-8 ####[facility] LABIA [id number] [address] [place] OF [facility] MCHC (RBC) [Mass/Vol] 33.5 g/dL Normal 30.5-36.0 [facility] Comment on above: Order Comment: Speci men Type: BLOOD SPECIMENOrdering Facility: [facility] Address: [address] [place], [place] [address] Performed By: #### 5 7021-8 ####[facility] LABCLIA [id number] [address] [place] MCV (RBC) [Entitic vol] 89.3 fL Normal 80.0-100.0 [facility] Comment on above: Order Comment: Speci men Type: BLOOD SPECIMENOrdering Facility: [facility] Address: [address] [place], [place] [address] Performed By: #### 5 7021-8 ####[facility] LABCLIA [id number] [place] [address] [place] Monocytes (Bld) [#/Vol] 0.44 10*3/uL Normal <0.87 [facility] Comment on above: Order Comment: Speci men Type: BLOOD SPECIMENOrdering Facility: [facility] Address: [address] [place], [place] [address] Performed By: #### 5 7021-8 ####[facility] LABCLIA [id number] [address] [place] Monocytes/100 WBC (Bld) 8.7 % Normal [facility] Comment on above: Order Comment: Speci men Type: BLOOD SPECIMENOrdering Facility: [facility] Address: [address] [place], [place] [address] Performed By: #### 5 7021-8 ####[facility] LABCLIA [id number] [place] [address] [place] Neutrophils (Bld) [#/Vol] 2.90 10*3/uL Normal 1.45-7.50 [facility] Comment on above: Order Comment: Speci men Type: BLOOD SPECIMENOrdering Facility: [facility] Address: [address] [place], [place] [id number] Performed By: #### 5 7021-8 ####[facility] LABCLIA [id number] [place] [address] [place] [place] Neutrophils/100 WBC (Bld) 57.3 % [facility] Comment on above: Order Comment: Speci men Type: BLOOD SPECIMENOrdering Facility: [facility] Address: [address] [place], [place] [address] Performed By: #### 5 7021-8 ####[facility] LABCLIA [id number] [place] [address] [place] Nucleated RBC (Bld) [#/Vol] 10*3/uL Normal <0.01 [facility] Comment on above: Order Comment: Speci men Type: BLOOD SPECIMENOrdering Facility: [facility] Address: [address] [place], [place] [address] Performed By: #### 5 7021-8 ####[facility] LABIA [id number] [place] [address] [place] Nucleated RBC/100 WBC (Bld) [Ratio] 0.0 /100 WBC [facility] Comment on above: Order Comment: Speci men Type: BLOOD SPECIMENOrdering Facility: [facility] Address: [address] [place], [place] [address] Performed By: #### 5 7021-8 ####[facility] [id number] [place] [address] [place] Platelet mean volume (Bld) [Entitic vol] 10.6 fL Normal 9.0-12.7 [facility] Comment on above: Order Comment: Speci men Type: BLOOD SPECIMENOrdering Facility: [facility] Address: [address] [place], [place] [address] Performed By: #### 5 7021-8 ####[facility]UN[facility] [id number] [place] [address] [place] Platelets (Bld) [#/Vol] 237 10*3/uL Normal 150-400 [facility] Comment on above: Order Comment: Speci men Type: BLOOD SPECIMENOrdering Facility: [facility] Address: [address] [place], [place] [address] Performed By: #### 5 7021-8 ####[facility] LABIA [id number] [place] [address] [place] RBC (Bld) [#/Vol] 5.44 10*6/uL Normal 4.20-6.00 [facility] Comment on above: Order Comment: Speci men Type: BLOOD SPECIMENOrdering Facility: [facility] Address: [address] [place] [address] Performed By: #### 5 7021-8 ####[facility] LABCLIA [id number] [place] [address] [place] WBC (Bld) [#/Vol] 5.06 10*3/uL Normal 3.70-11.00 [facility] Comment on above: Order Comment: Speci men Type: BLOOD SPECIMENOrdering Facility: [facility] Address: [address] [place] [address] Performed By: #### 5 7021-8 ####[facility] LABCLIA [id number] [place] [address] [place] CNPNon 10-27-2021 CNPN [facility] CONFIRM BLOOD TYPEon 022 ABO O [facility] Comment on above: Order Comment: Speci men Type: BLOOD SPECIMENOrdering Facility: [facility] Address: [address] [place] [address] Performed By: #### C ONABO ####[facility] BLOOD BANKCLIA [id number] [place] [address] [place] Rh Nom (Bld) Positive [facility] Comment on above: Order Comment: Speci men Type: BLOOD SPECIMENOrdering Facility: [facility] Address: [address] [place] [address] Performed By: #### C ONABO ####[facility] BLOOD BANKCLIA [id number] [place] [address] [place] Comprehensive metabolic 2000 panelon 10-27-2021 Albumin [Mass/Vol] 3.8 g/dL Low 3.9-4.9 [facility] Comment on above: Order Comment: Speci men Type: BLOOD SPECIMENOrdering Facility: [facility] Address: [address] [place], [place] [address] Performed By: #### 2 4323-8, 3016-3 ####[facility] LABCLIA [id number] [place] [address] [place] ALP [Catalytic activity/Vol] 54 U/L Normal 38-113 [facility] Comment on above: Order Comment: Speci men Type: BLOOD SPECIMENOrdering Facility: [facility] Address: [address] [place], [place] [address] Performed By: #### 2 4323-8, 3016-3 ####[facility] LABCLIA [id number] [address] [place] ALT [Catalytic activity/Vol] 20 U/L Normal 10-54 [facility] Comment on above: Order Comment: Speci men Type: BLOOD SPECIMENOrdering Facility: [facility] Address: [address] [place], [place] [address] Performed By: #### 2 4323-8, 3016-3 ####[facility] LABIA [id number] [place] [address] [place] Anion gap [Moles/Vol] 11 mmol/L Normal 9-18 [facility] Comment on above: Order Comment: Speci men Type: BLOOD SPECIMENOrdering Facility: [facility] Address: [address] [place] [address] Performed By: #### 2 4323-8, 3016-3 ####[facility] LABCLIA [id number] [place] [address] [place] AST [Catalytic activity/Vol] 22 U/L Normal 14-40 [facility] Comment on above: Order Comment: Speci men Type: BLOOD SPECIMENOrdering Facility: [facility] Address: [address] [place] [address] Performed By: #### 2 4323-8, 3016-3 ####[facility] LABCLIA [id number] [facility] [place] [address] [place] Bilirubin [Mass/Vol] 0.5 mg/dL Normal 0.2-1.3 [facility] Comment on above: Order Comment: Speci men Type: BLOOD SPECIMENOrdering Facility: [facility] Address: [address] [place], [place] [address] Performed By: #### 2 432-8, 3015-3 ####[facility] LABCLIA [id number] [facility] [place] [address] [place] Calcium [Mass/Vol] 9.6 mg/dL Normal 8.5-10.2 [facility] Comment on above: Order Comment: Speci men Type: BLOOD SPECIMENOrdering Facility: [facility] Address: [address] [place], [place] [address] Performed By: #### 2 4328, 3015-3 ####[facility] LABCLIA [id number] [facility] [place] [address] [place] Chloride [Moles/Vol] 101 mmol/L Normal 97-105 [facility] Comment on above: Order Comment: Speci men Type: BLOOD SPECIMENOrdering Facility: [facility] Address: [address] [place] [address] Performed By: #### 2 4328, 3015-3 ####[facility] LABCLIA [id number] [facility] [place] [id number] [place] CO2 [Moles/Vol] 28 mmol/L Normal 22-30 [facility] Comment on above: Order Comment: Speci men Type: BLOOD SPECIMENOrdering Facility: [facility] Address: [address] [place] [address] Performed By: #### 2 4323-8, 3015-3 ####[facility] LABCLIA [id number] [address] [place] Creatinine [Mass/Vol] 1.07 mg/dL Normal 0.73-1.22 [facility] Comment on above: Order Comment: Aaliyah gibson Type: BLOOD SPECIMENOrdering Facility: [facility] Address: [address] [address] Performed By: #### 2 4323-8, 3016-3 ####[facility] LABIA [id number] [place] ESTIMATED GLOMERULAR FILTRATION RATE 81 mL/min/1.73m??? Normal >=60 [facility] Comment on above: Order Comment: Aaliyah gibson Type: BLOOD SPECIMENOrdering Facility: [facility] Address: [address] [place] [address] Result Comment: Laurita mated Glomerular Filtration Rate [...] GFR. Performed By: #### 2 4323-8, 6-3 ####[facility] LABCLIA [id number] [place] [address] [place] Glucose [Mass/Vol] 111 mg/dL High 74-99 [facility] Comment on above: Order Comment: Aaliyah gibson Type: BLOOD SPECIMENOrdering Facility: [facility] Address: [address] [address] Result Comment: The [place] [employer] (ADA) provides guidance for cutoff [...] Standards of Medical Care in Diabetes 2016, [place] [employer]. Diabetes Care. 2016.39(Suppl 1). Performed By: #### 2 4323-8, 6-3 ####[facility] LABCLIA [id number] [place] [address] [place] Potassium [Moles/Vol] 3.5 mmol/L Low 3.7-5.1 [facility] Comment on above: Order Comment: Speci men Type: BLOOD SPECIMENOrdering Facility: [facility] Address: [address] [place] [address] Performed By: #### 2 432-8, 3015-3 ####[facility] LABCLIA [id number] [place] [address] [place] Protein [Mass/Vol] 6.8 g/dL Normal 6.3-8.0 [facility] Comment on above: Order Comment: Speci men Type: BLOOD SPECIMENOrdering Facility: [facility] Address: [address] [place], [place] [address] Performed By: #### 2 4323-8, 3 ####[facility] LABCLIA [id number] [place] [address] [place] Sodium [Moles/Vol] 140 mmol/L Normal 136-144 [facility] Comment on above: Order Comment: Speci men Type: BLOOD SPECIMENOrdering Facility: [facility] Address: [address] [place] [phone] Performed By: #### 2 4323-8, 3015-3 ####[facility] LABCLIA [id number] [address] [address] [place] Urea nitrogen [Mass/Vol] 9 mg/dL Normal 9-24 [facility] Comment on above: Order Comment: Speci men Type: BLOOD SPECIMENOrdering Facility: [facility] Address: [address] [place] [address] Performed By: #### 2 4323-8, 3016-3 ####[facility] LABCLIA [id number] [place] [address] [place] ECG COMPLETEon 10-27-2021 ECG COMPLETE [facility] HISTORY PHYSICALon HISTORY PHYSICAL Normal [facility] PT panel Coag (PPP)on 2021 INR Coag (PPP) [Relative time] 2.2 {INR} High 0.9-1.3 [facility] Comment on above: Order Comment: Spectricia gibson Type: BLOOD SPECIMENOrdering Facility: [facility] Address: [address] [place] [address] Result Comment: Constanza min K Antagonist (VKA) Therapeutic Range: INR 2 to 3 (Target INR of 2.5)Note: For patients treated with VKA drugs, such as warfarin, the [place] [employer] 2012 Guideline recommends [...] of 3).Lars JAMISON, et al. Chest 2012, 141:7S-47SLuis Aimkhalida RA, et al. [facility] 2017, 70: 252-289 Performed By: #### 3 4528-0, 54014-8 ####[facility] LABCLIA [id number] [place] [address] [place] PT Coag (PPP) [Time] 22.4 s High 9.7-13.0 [facility] Comment on above: Order Comment: Speci men Type: BLOOD SPECIMENOrdering Facility: [facility] Address: [address] [place] [address] Performed By: #### 3 4528-0, 17108-8 ####[facility] LABCLIA [id number] [address] [place] TSH SerPl-aCncon 10-27-2021 TSH Qn 1.530 m[IU]/L Normal 0.270-4.20 [facility] Comment on above: Order Comment: Speci men Type: BLOOD SPECIMENOrdering Facility: [facility] Address: [address] [place] [address] Performed By: #### 2 4323-8, 3016-3 ####[facility] LABCLIA [id number] [address] [place] TYPE AND SCREEN,30 DAYon ABO O [facility] Comment on above: Order Comment: Speci men Type: BLOOD SPECIMENOrdering Facility: [facility] Address: [address] [place], [place] [address] Performed By: #### T SCR30 ####[facility] BLOOD BANKCLIA [id number] [address] [place] HISTORICAL AB SCR STATUS Negative [facility] Comment on above: Order Comment: Speci men Type: BLOOD SPECIMENOrdering Facility: [facility] Address: [address] [place], [place] [address] Performed By: #### T SCR30 ####[facility] BLOOD BANKCLIA [id number] [place] [address] [place] Rh Nom (Bld) Positive [facility] Comment on above: Order Comment: Speci men Type: BLOOD SPECIMENOrdering Facility: [facility] Address: [address] [place] [address] Performed By: #### T SCR30 ####[facility] BLOOD BANKCLIA [id number] [address] [place] aPTT PPPon 10-27-2021 aPTT Coag (PPP) [Time] 35.8 s High 23.0-32.4 [facility] Comment on above: Order Comment: Speci men Type: BLOOD SPECIMENOrdering Facility: [facility] Address: [address] [place] [address] Performed By: #### 3 4528-0, 40235-7 ####[facility] LABCLIA [id number] [address] [facility] CNPNon 10-21-2021 CNPN Telephone ([facility]) ----- YEFRI YANEZ ([id number]) 1965 M [facility] Date Time Provider Department 10/21/21 HAYLEE WILBURN [facility] During your visit today, we recorded [...] for cabzantinib and sent new order to [facility] speciality pharmacy. Prescriptions as of 10/21/2021 [...] Encounter Status:Closed by AMERICA SCHWARTZ on 10/21/21 [facility] CNOVSPon 10-20-2021 CNOVSP Visit (SP) Office ([facility]) ----- YEFRI YANEZ ([id number]) 1965 M [facility] Date Time Provider Department 10/20/21 2:30 PM HAYLEE WILBURN [facility] During your visit today, we recorded the following information about you: Pulse Respiration Blood pressure Weight 60/minute 16/minute 130/78 115.2 kg Height 1.854 m Haylee Wilburn MD 10/21/2021 9:38 AM Signed [facility] Oncology Consult Note SERVICE DATE: October 20, [...] treatment with cabo + nivo on [facility] 182 on 08/08/2021. He has baseline HTN and developed worsening HTN after starting treatment. His cabo was held on 08/18/2021, resumed on 09/11/2021. The Nivo was held on 09/11/21 due to pneumonitis, and prednisone 60 mg daily was started and tapered off one week ago. Due to insurance change, he was taken off the trial and referred to [facility] to resume the treatment. He [...] Never Tobacco comments (more content not included)... [facility] CNCOon 10-16-2021 CNCO Letter Text [facility] CNPNon 10-16-2021 CNPN [facility] CNPNon 10-14-2021 CNPN [facility] CBC W Auto Differential pane l (Bld)on 10-09-2021 Basophils (Bld) [#/Vol] 10*3/uL Normal <0.11 [facility] Comment on above: Order Comment: Speci men Type: BLOOD SPECIMENOrdering Facility: [facility] Address: [address] [place], [place] [address] Performed By: #### 5 7021-8 ####[facility] [id number] [place] [address] [place] [facility] Basophils/100 WBC (Bld) 0.3 % Normal [facility] Comment on above: Order Comment: Speci men Type: BLOOD SPECIMENOrdering Facility: [facility] Address: [address] [place], [place] [address] Performed By: #### 5 7021-8 ####[facility] [id number] [place] [address] [place] Differential cell count method Nom (Bld) Auto [facility] Comment on above: Order Comment: Speci men Type: BLOOD SPECIMENOrdering Facility: [facility] Address: [address] [place], [place] [address] Performed By: #### 5 7021-8 ####[facility] [place] [place] [id number] [place] [address] [place] Eosinophils (Bld) [#/Vol] 0.03 10*3/uL Normal <0.46 [facility] Comment on above: Order Comment: Speci men Type: BLOOD SPECIMENOrdering Facility: [facility] Address: [address] [place], [place] [address] Performed By: #### 5 7021-8 ####[facility] [id number] [place] [address] [facility] Eosinophils/100 WBC (Bld) 0.4 % [facility] Comment on above: Order Comment: Speci men Type: BLOOD SPECIMENOrdering Facility: [facility] Address: [address] [place], [place] [address] Performed By: #### 5 7021-8 ####[facility] [id number] [place] [address] [place] Erythrocyte distribution width (RBC) [Ratio] 17.2 % High 11.5-15.0 [facility] Comment on above: Order Comment: Speci men Type: BLOOD SPECIMENOrdering Facility: [facility] Address: [address] [place] [address] Performed By: #### 5 7021-8 ####[facility] [id number] [place] [address] [facility] Hematocrit (Bld) [Volume fraction] 46.8 % Normal 39.0-51.0 [facility] Comment on above: Order Comment: Speci men Type: BLOOD SPECIMENOrdering Facility: [facility] Address: [address] [place] [address] Performed By: #### 5 7021-8 ####[facility] [id number] [place] [address] [facility] Hemoglobin (Bld) [Mass/Vol] 15.5 g/dL Normal 13.0-17.0 [facility] Comment on above: Order Comment: Speci men Type: BLOOD SPECIMENOrdering Facility: [facility] Address: [address] [place], [place] [address] Performed By: #### 5 7021-8 ####[facility] [id number] [place] [address] [facility] IMMATURE GRAN % 0.8 % [facility] Comment on above: Order Comment: Speci men Type: BLOOD SPECIMENOrdering Facility: [facility] Address: [address] [place], [place] [address] Performed By: #### 5 7021-8 ####[facility] [id number] [place] [address] IMMATURE GRAN ABS 0.06 k/uL Normal <0.10 [facility] Comment on above: Order Comment: Speci men Type: BLOOD SPECIMENOrdering Facility: [facility] Address: [address] [place], [place] [address] Performed By: #### 5 7021-8 ####[facility] [id number] [address] Lymphocytes (Bld) [#/Vol] 2.33 10*3/uL Normal 1.00-4.00 [facility] Comment on above: Order Comment: Speci men Type: BLOOD SPECIMENOrdering Facility: [facility] Address: [address] [place], [place] [address] Performed By: #### 5 7021-8 ####[facility] [id number] [place] [address] [place] Lymphocytes/100 WBC (Bld) 32.3 % [facility] Comment on above: Order Comment: Speci men Type: BLOOD SPECIMENOrdering Facility: [facility] Address: [address] [place] [address] Performed By: #### 5 7021-8 ####[facility] [id number] [place] [address] [place] MCH (RBC) [Entitic mass] 30.2 pg Normal 26.0-34.0 [facility] Comment on above: Order Comment: Speci men Type: BLOOD SPECIMENOrdering Facility: [facility] Address: [address] [place], [place] [address] Performed By: #### 5 7021-8 ####[facility] [id number] [address] [place] MCHC (RBC) [Mass/Vol] 33.1 g/dL Normal 30.5-36.0 [facility] Comment on above: Order Comment: Speci men Type: BLOOD SPECIMENOrdering Facility: [facility] Address: [address] [place], [place] [address] Performed By: #### 5 7021-8 ####[facility] [id number] [place] [address] [place] MCV (RBC) [Entitic vol] 91.2 fL Normal 80.0-100.0 [facility] Comment on above: Order Comment: Speci men Type: BLOOD SPECIMENOrdering Facility: [facility] Address: [address] [place] [address] Performed By: #### 5 7021-8 ####[facility] [id number] [place] [address] [place] Monocytes (Bld) [#/Vol] 0.35 10*3/uL Normal <0.87 [facility] Comment on above: Order Comment: Speci men Type: BLOOD SPECIMENOrdering Facility: [facility] Address: [address] [place] [address] Performed By: #### 5 7021-8 ####[facility] [id number] [place] [address] [place] Monocytes/100 WBC (Bld) 4.8 % Normal [facility] Comment on above: Order Comment: Speci men Type: BLOOD SPECIMENOrdering Facility: [facility] Address: [address] [place] [address] Performed By: #### 5 7021-8 ####[facility] [id number] [place] [address] [place] Neutrophils (Bld) [#/Vol] 4.43 10*3/uL Normal 1.45-7.50 [facility] Comment on above: Order Comment: Speci men Type: BLOOD SPECIMENOrdering Facility: [facility] Address: [address] [place] [address] Performed By: #### 5 7021-8 ####[facility] [id number] [place] [address] [place] Neutrophils/100 WBC (Bld) 61.4 % [facility] Comment on above: Order Comment: Speci men Type: BLOOD SPECIMENOrdering Facility: [facility] Address: [address] [place], [place] [address] Performed By: #### 5 7021-8 ####[facility] [id number] [address] [place] Nucleated RBC (Bld) [#/Vol] 10*3/uL Normal <0.01 [facility] Comment on above: Order Comment: Speci men Type: BLOOD SPECIMENOrdering Facility: [facility] Address: [address] [place], [place] [address] Performed By: #### 5 7021-8 ####[facility] [id number] [place] [address] [place] Nucleated RBC/100 WBC (Bld) [Ratio] 0.0 /100 WBC [facility] Comment on above: Order Comment: Speci men Type: BLOOD SPECIMENOrdering Facility: [facility] Address: [address] [place], [place] [address] Performed By: #### 5 7021-8 ####[facility] [id number] [place] [address] [place] Platelet mean volume (Bld) [Entitic vol] 9.1 fL Normal 9.0-12.7 [facility] Comment on above: Order Comment: Speci men Type: BLOOD SPECIMENOrdering Facility: [facility] Address: [address] [place] [phone] Performed By: #### 5 7021-8 ####[facility] [id number] [place] [address] [place] Platelets (Bld) [#/Vol] 243 10*3/uL Normal 150-400 [facility] Comment on above: Order Comment: Speci men Type: BLOOD SPECIMENOrdering Facility: [facility] Address: [address] [place] [address] Performed By: #### 5 7021-8 ####[facility] [id number] [place] [address] [place] RBC (Bld) [#/Vol] 5.13 10*6/uL Normal 4.20-6.00 [facility] Comment on above: Order Comment: Speci men Type: BLOOD SPECIMENOrdering Facility: [facility] Address: [address] [place], [place] [address] Performed By: #### 5 7021-8 ####[facility] [id number] [place] [address] WBC (Bld) [#/Vol] 7.22 10*3/uL Normal 3.70-11.00 [facility] Comment on above: Order Comment: Speci men Type: BLOOD SPECIMENOrdering Facility: [facility] Address: [address] [place], [place] [address] Performed By: #### 5 7021-8 ####[facility] [id number] [place] [address] [place] CNNURSEon 10-09-2021 CNNURSE [facility] CNOVSPon 10-09-2021 CNOVSP [facility] Comprehensive metabolic 2000 panelon 10-09-2021 Albumin [Mass/Vol] 4.0 g/dL Normal 3.9-4.9 [facility] Comment on above: Order Comment: Speci men Type: BLOOD SPECIMENOrdering Facility: [facility] Address: [address] [place], [place] [address] Performed By: #### 2 4323-8, 3084-1, 58209-6 ####[facility] [id number] [place] [address] [place] ALP [Catalytic activity/Vol] 89 U/L Normal 38-113 [facility] Comment on above: Order Comment: Speci men Type: BLOOD SPECIMENOrdering Facility: [facility] Address: [address] [place], [place] [id number] Performed By: #### 2 4323-8, 308-1, ####[facility] [id number] [place] [address] [place] ALT [Catalytic activity/Vol] 50 U/L Normal 10-54 [facility] Comment on above: Order Comment: Speci men Type: BLOOD SPECIMENOrdering Facility: [facility] Address: [address] [place], [place] [id number] Performed By: #### 2 4323-8, 3083-, ####[facility] [id number] [place] [address] [place] Anion gap [Moles/Vol] 9 mmol/L Normal 9-18 [facility] Comment on above: Order Comment: Speci men Type: BLOOD SPECIMENOrdering Facility: [facility] Address: [address] [place], [place] [address] Performed By: #### 2 4323-8, 3083-03, ####[facility] [id number] [place] [address] [place] AST [Catalytic activity/Vol] 24 U/L Normal 14-40 [facility] Comment on above: Order Comment: Speci men Type: BLOOD SPECIMENOrdering Facility: [facility] Address: [address] [place] [address] Performed By: #### 2 4323-8, 1, ####[facility] [id number] [place] [address] [place] Bilirubin [Mass/Vol] 0.3 mg/dL Normal 0.2-1.3 [facility] Comment on above: Order Comment: Speci men Type: BLOOD SPECIMENOrdering Facility: [facility] Address: [address] [place] [address] Performed By: #### 2 4323-8, 3084-1, ####[facility] [id number] [place] [address] [place] Calcium [Mass/Vol] 9.3 mg/dL Normal 8.5-10.2 [facility] Comment on above: Order Comment: Speci men Type: BLOOD SPECIMENOrdering Facility: [facility] Address: [address] [place], [place] [address] Performed By: #### 2 4323-8, 3084-1, ####[facility] [id number] [place] [address] [place] Chloride [Moles/Vol] 104 mmol/L Normal 97-105 [facility] Comment on above: Order Comment: Speci men Type: BLOOD SPECIMENOrdering Facility: [facility] Address: [address] [place], [place] [address] Performed By: #### 2 4323-8, 308-1, ####[facility] [id number] [place] [address] [place] CO2 [Moles/Vol] 28 mmol/L Normal 22-30 [facility] Comment on above: Order Comment: Speci men Type: BLOOD SPECIMENOrdering Facility: [facility] Address: [address] [place], [place] [address] Performed By: #### 2 4323-8, 308-1, ####[facility] [id number] [place] [address] [place] Creatinine [Mass/Vol] 1.19 mg/dL Normal 0.73-1.22 [facility] Comment on above: Order Comment: Speci men Type: BLOOD SPECIMENOrdering Facility: [facility] Address: [address] [place], [place] [address] Performed By: #### 2 4323-8, 3084-1, 47273-2 ####[facility] [id number] [address] [facility] ESTIMATED GLOMERULAR FILTRATION RATE 71 mL/min/1.73m??? Normal >=60 [facility] Comment on above: Order Comment: Aaliyah gibson Type: BLOOD SPECIMENOrdering Facility: [facility] Address: [address] [place], [place] [address] Result Comment: Laurita mated Glomerular Filtration Rate [...] GFR. Performed By: #### 2 4323-8, 3084-, ####[facility] [id number] [address] [facility] Glucose [Mass/Vol] 131 mg/dL High 74-99 [facility] Comment on above: Order Comment: Aaliyah gibson Type: BLOOD SPECIMENOrdering Facility: [facility] Address: [address] [place], [place] [address] Result Comment: The [place] [employer] (ADA) provides guidance for cutoff [...] Standards of Medical Care in Diabetes 2016, [place] [employer]. Diabetes Care. 2016.39(Suppl 1). Performed By: #### 2 4323-8, 3083-03, ####[facility] [id number] [place] [address] [place] Potassium [Moles/Vol] 4.0 mmol/L Normal 3.7-5.1 [facility] Comment on above: Order Comment: Speci men Type: BLOOD SPECIMENOrdering Facility: [facility] Address: [address] [place], [place] [address] Performed By: #### 2 4323-8, 3083-03, ####[facility] [id number] [place] [address] [place] Protein [Mass/Vol] 6.4 g/dL Normal 6.3-8.0 [facility] Comment on above: Order Comment: Speci men Type: BLOOD SPECIMENOrdering Facility: [facility] Address: [address] [place], [place] [address] Performed By: #### 2 4323-8, 3083-03, ####[facility] [id number] [place] [address] [place] Sodium [Moles/Vol] 141 mmol/L Normal 136-144 [facility] Comment on above: Order Comment: Speci men Type: BLOOD SPECIMENOrdering Facility: [facility] Address: [address] [place] [address] Performed By: #### 2 4323-8, 3083-03, ####[facility] [id number] [place] [id number] [place] Urea nitrogen [Mass/Vol] 19 mg/dL Normal 9-24 [facility] Comment on above: Order Comment: Speci men Type: BLOOD SPECIMENOrdering Facility: [facility] Address: [address] [place] [address] Performed By: #### 2 4323-8, 3083-03, ####[facility] [id number] [place] [address] [place] LDH SerPl-cCncon 10-09-2021 LDH [Catalytic activity/Vol] 348 U/L High 135-225 [facility] Comment on above: Order Comment: Aaliyah gibson Type: BLOOD SPECIMENOrdering Facility: [facility] Address: [address] [place] [address] Performed By: #### 2 532-0 ####[facility] [id number] [place] [address] [place] Magnesium SerPl-mCncon 10-09 Magnesium [Mass/Vol] 2.2 mg/dL Normal 1.7-2.3 [facility] Comment on above: Order Comment: Aaliyah gibson Type: BLOOD SPECIMENOrdering Facility: [facility] Address: [address] [place] [address] Performed By: #### 2 4323-8, 3084-1, 25762-8 ####[facility] [id number] [place] [address] PT panel Coag (PPP)on 2021 INR Coag (PPP) [Relative time] 2.8 {INR} High 0.9-1.3 [facility] Comment on above: Order Comment: Aaliyah gibson Type: BLOOD SPECIMENOrdering Facility: [facility] Address: [address] [place] [address] Result Comment: Constanza min K Antagonist (VKA) Therapeutic Range: INR 2 to 3 (Target INR of 2.5)Note: For patients treated with VKA drugs, such as warfarin, the [place] [employer] 2012 Guideline recommends [...] al. Chest 2012, 141:7S-47SNishimura RA, et al. [facility] 2017, 70: 252-289 Performed By: #### 1 4979-9, 70716-5 ####[facility] [id number] [place] [address] [place] PT Coag (PPP) [Time] 27.9 s High 9.7-13.0 [facility] Comment on above: Order Comment: Speci men Type: BLOOD SPECIMENOrdering Facility: [facility] Address: [address] [place] [address] Performed By: #### 1 4979-9, 06685-6 ####[facility] [id number] [place] [address] [place] Phosphate SerPl-mCncon 10-09 Phosphate [Mass/Vol] 3.4 mg/dL Normal 2.7-4.8 [facility] Comment on above: Order Comment: Speci men Type: BLOOD SPECIMENOrdering Facility: [facility] Address: [address] [place] [address] Performed By: #### 2 777-1 ####[facility] [id number] [place] [address] [place] T3Free SerPl-mCncon 10-10-19 22 Free T3 [Mass/Vol] 3.0 pg/mL Normal 2.3-4.1 [facility] Comment on above: Order Comment: Speci men Type: BLOOD SPECIMENOrdering Facility: [facility] Address: [address] [place] [address] Performed By: #### 3 051-0, 3024-7 ####[facility] [id number] [place] [address] [place] T4 Free SerPl-mCncon 022 Free T4 [Mass/Vol] 1.2 ng/dL Normal 0.9-1.7 [facility] Comment on above: Order Comment: Speci men Type: BLOOD SPECIMENOrdering Facility: [facility] Address: [address] [place] [address] Performed By: #### 3 051-0, 3024-7 ####[facility] [id number] [place] [address] [place] TSH SerPl-aCncon 10-09-2021 TSH Qn 0.925 m[IU]/L Normal 0.270-4.20 0 [facility] Comment on above: Order Comment: Speci men Type: BLOOD SPECIMENOrdering Facility: [facility] Address: [address] [place] [address] Performed By: #### 3 016-3 ####[facility] [id number] [address] [place] Urate SerPl-mCncon 2 Urate [Mass/Vol] 8.3 mg/dL High 4.0-8.1 [facility] Comment on above: Order Comment: Speci men Type: BLOOD SPECIMENOrdering Facility: [facility] Address: [address] [place], [place] [address] Performed By: #### 2 4323-8, 3084-1, 56203-9 ####[facility] [id number] [place] [address] [place] aPTT PPPon 10-09-2021 aPTT Coag (PPP) [Time] 31.7 s Normal 23.0-32.4 [facility] Comment on above: Order Comment: Speci men Type: BLOOD SPECIMENOrdering Facility: [facility] Address: [address] [place] [address] Performed By: #### 1 4979-9, 68448-8 ####[facility] LABCLIA [id number] [place] [address] [place] CNPNon 09-29-2021 CNPN [facility] CNPTOUTREACHon 09-29-2021 CNPTOUTREACH [facility] Basic metabolic 2000 panelon 09-26-2021 Anion gap [Moles/Vol] 6 mmol/L Low 9-18 [facility] Comment on above: Order Comment: Speci men Type: BLOOD SPECIMENOrdering Facility: [facility] Address: [address] [place], [place] [address] Performed By: #### 2 4321-2 ####[facility] LABCLIA [id number] [place] [address] [place] Calcium [Mass/Vol] 9.9 mg/dL Normal 8.5-10.2 [facility] Comment on above: Order Comment: Speci men Type: BLOOD SPECIMENOrdering Facility: [facility] Address: [address] [place], [place] [address] Performed By: #### 2 4321-2 ####[facility] LABCLIA [id number] [place] [address] [place] Chloride [Moles/Vol] 98 mmol/L Normal 97-105 [facility] Comment on above: Order Comment: Speci men Type: BLOOD SPECIMENOrdering Facility: [facility] Address: [address] [place] [phone] Performed By: #### 2 4321-2 ####[facility] LABIA [id number] [place] [address] [place] CO2 [Moles/Vol] 38 mmol/L High 22-30 [facility] Comment on above: Order Comment: Speci men Type: BLOOD SPECIMENOrdering Facility: [facility] Address: [address] [place] [phone] Performed By: #### 2 4321-2 ####[facility] LABIA [id number] [address] OF [facility] Creatinine [Mass/Vol] 1.07 mg/dL Normal 0.73-1.22 [facility] Comment on above: Order Comment: Speci men Type: BLOOD SPECIMENOrdering Facility: [facility] Address: [address] [place], [place] [address] Performed By: #### 2 4321-2 ####[facility] LABIA [id number] [address] [place] ESTIMATED GLOMERULAR FILTRATION RATE 81 mL/min/1.73m??? Normal >=60 [facility] Comment on above: Order Comment: Ronyi men Type: BLOOD SPECIMENOrdering Facility: [facility] Address: [address] [place] [address] Result Comment: Laurita mated Glomerular Filtration Rate [...] actual GFR. Performed By: #### 2 4321-2 ####[facility] LABIA [id number] [place] [address] [place] Glucose [Mass/Vol] 127 mg/dL High 74-99 [facility] Comment on above: Order Comment: Speci men Type: BLOOD SPECIMENOrdering Facility: [facility] Address: [address] [place], [place] [address] Result Comment: The [place] [employer] (ADA) provides guidance for cutoff [...] Standards of Medical Care in Diabetes 2016, [place] [employer]. Diabetes Care. 2016.39(Suppl 1). Performed By: #### 2 4321-2 ####[facility] LABCLIA [id number] [place] [address] [place] Potassium [Moles/Vol] 3.7 mmol/L Normal 3.7-5.1 [facility] Comment on above: Order Comment: Ronyi paige Type: BLOOD SPECIMENOrdering Facility: [facility] Address: [address] [place] [address] Performed By: #### 2 4321-2 ####[facility] LABIA [id number] [place] [address] [place] Sodium [Moles/Vol] 142 mmol/L Normal 136-144 [facility] Comment on above: Order Comment: Aaliyah gibson Type: BLOOD SPECIMENOrdering Facility: [facility] Address: [address] [place] [address] Performed By: #### 2 4321-2 ####[facility] LABCLIA [id number] [place] [address] [place] Urea nitrogen [Mass/Vol] 27 mg/dL High 9-24 [facility] Comment on above: Order Comment: Ronyi men Type: BLOOD SPECIMENOrdering Facility: [facility] Address: [address] [place] [address] Performed By: #### 2 4321-2 ####[facility] LABCLIA [id number] [place] [address] [place] CBC panel Auto (Bld)on 09-26 Erythrocyte distribution width (RBC) [Ratio] 17.2 % High 11.5-15.0 [facility] Comment on above: Order Comment: Speci men Type: BLOOD SPECIMENOrdering Facility: [facility] Address: [address] [place] [address] Performed By: #### 5 8410-2 ####[facility] LABIA [id number] [place] [address] [place] Hematocrit (Bld) [Volume fraction] 41.7 % Normal 39.0-51.0 [facility] Comment on above: Order Comment: Speci men Type: BLOOD SPECIMENOrdering Facility: [facility] Address: [address] [place], [place] [address] Performed By: #### 5 8410-2 ####[facility] LABIA [id number] [place] [address] [place] Hemoglobin (Bld) [Mass/Vol] 13.4 g/dL Normal 13.0-17.0 [facility] Comment on above: Order Comment: Speci men Type: BLOOD SPECIMENOrdering Facility: [facility] Address: [address] [place] [address] Performed By: #### 5 8410-2 ####[facility] LABIA [id number] [place] [address] [place] MCH (RBC) [Entitic mass] 29.8 pg Normal 26.0-34.0 [facility] Comment on above: Order Comment: Speci men Type: BLOOD SPECIMENOrdering Facility: [facility] Address: [address] [place], [place] [address] Performed By: #### 5 8410-2 ####[facility] LABIA [id number] [place] [address] [place] MCHC (RBC) [Mass/Vol] 32.1 g/dL Normal 30.5-36.0 [facility] Comment on above: Order Comment: Speci men Type: BLOOD SPECIMENOrdering Facility: [facility] Address: [address] [place] [address] Performed By: #### 5 8410-2 ####[facility] LABCLIA [id number] [address] STATES [facility] MCV (RBC) [Entitic vol] 92.7 fL Normal 80.0-100.0 [facility] Comment on above: Order Comment: Speci men Type: BLOOD SPECIMENOrdering Facility: [facility] Address: [address] [place], [place] [address] Performed By: #### 5 8410-2 ####[facility] LABIA [id number] [address] [place] Nucleated RBC (Bld) [#/Vol] 0.02 10*3/uL High <0.01 [facility] Comment on above: Order Comment: Speci men Type: BLOOD SPECIMENOrdering Facility: [facility] Address: [address] [place], [place] [address] Performed By: #### 5 8410-2 ####[facility] LABIA [id number] [address] OF [place] Platelet mean volume (Bld) [Entitic vol] 10.4 fL Normal 9.0-12.7 [facility] Comment on above: Order Comment: Speci men Type: BLOOD SPECIMENOrdering Facility: [facility] Address: [address] [place] [address] Performed By: #### 5 8410-2 ####[facility] LABIA [id number] [place] [address] [place] Platelets (Bld) [#/Vol] 177 10*3/uL Normal 150-400 [facility] Comment on above: Order Comment: Speci men Type: BLOOD SPECIMENOrdering Facility: [facility] Address: [address] [place], [place] [address] Performed By: #### 5 8410-2 ####[facility] LABCLIA [id number] [place] [address] [place] RBC (Bld) [#/Vol] 4.50 10*6/uL Normal 4.20-6.00 [facility] Comment on above: Order Comment: Speci men Type: BLOOD SPECIMENOrdering Facility: [facility] Address: [address] [place] [address] Performed By: #### 5 8410-2 ####[facility] LABIA [id number] [place] [address] [place] WBC (Bld) [#/Vol] 9.26 10*3/uL Normal 3.70-11.00 [facility] Comment on above: Order Comment: Speci men Type: BLOOD SPECIMENOrdering Facility: [facility] Address: [address] [place] [address] Performed By: #### 5 8410-2 ####[facility] LABIA [id number] [address] [place] CNDSon 09-26-2021 CNDS [facility] ECG COMPLETEon 09-26-2021 ECG COMPLETE [facility] ECHOLon 09-26-2021 ECHOL [facility] NURSING PROGon 09-26-2021 NURSING PROG [facility] PT EDon 09-26-2021 PT ED [facility] PT panel Coag (PPP)on 2021 INR Coag (PPP) [Relative time] 1.3 {INR} Normal 0.9-1.3 [facility] Comment on above: Order Comment: Speci men Type: BLOOD SPECIMENOrdering Facility: [facility] Address: [address] [place] [address] Result Comment: Constanza min K Antagonist (VKA) Therapeutic Range: INR 2 to 3 (Target INR of 2.5)Note: For patients treated with VKA drugs, such as warfarin, the [place] [employer] 2012 Guideline recommends [...] al. Chest 2012, 141:7S-47SNishnini RA, et al. [facility] 2017, 70: 252-289 Performed By: #### 3 4528-0 ####[facility] LABIA [id number] [place] [address] [place] PT Coag (PPP) [Time] 13.5 s High 9.7-13.0 [facility] Comment on above: Order Comment: Speci men Type: BLOOD SPECIMENOrdering Facility: [facility] Address: [address] [phone] Performed By: #### 3 4528-0 ####[facility] [id number] [place] [address] [place] ANES POSTPROC EVALon 022 ANES POSTPROC EVAL [facility] ANES PRE-OPon 09-25-2021 ANES PRE-OP [facility] Basic metabolic 2000 panelon 09-25-2021 Anion gap [Moles/Vol] 10 mmol/L Normal 9-18 [facility] Comment on above: Order Comment: Speci men Type: BLOOD SPECIMENOrdering Facility: [facility] Address: [address] [place] [address] Performed By: #### 1 9123-9, 59402-9 ####[facility] LABIA [id number] [place] [address] [place] Calcium [Mass/Vol] 9.4 mg/dL Normal 8.5-10.2 [facility] Comment on above: Order Comment: Speci men Type: BLOOD SPECIMENOrdering Facility: [facility] Address: [address] [place], [place] [address] Performed By: #### 1 9123-9, 81266-0 ####[facility] LABCLIA [id number] [facility] [place] [address] [place] Chloride [Moles/Vol] 99 mmol/L Normal 97-105 [facility] Comment on above: Order Comment: Speci men Type: BLOOD SPECIMENOrdering Facility: [facility] Address: [address] [place], [place] [address] Performed By: #### 1 9123-9, 17295-8 ####[facility] LABCLIA [id number] [place] [address] [place] CO2 [Moles/Vol] 31 mmol/L High 22-30 [facility] Comment on above: Order Comment: Speci men Type: BLOOD SPECIMENOrdering Facility: [facility] Address: [address] [place], [place] [address] Performed By: #### 1 91239, 11626-1 ####[facility] LABCLIA [id number] [place] [address] [place] Creatinine [Mass/Vol] 0.95 mg/dL Normal 0.73-1.22 [facility] Comment on above: Order Comment: Speci men Type: BLOOD SPECIMENOrdering Facility: [facility] Address: [address] [place] [address] Performed By: #### 1 9123-9, 28878-3 ####[facility] LABCLIA [id number] [place] [address] [place] ESTIMATED GLOMERULAR FILTRATION RATE 93 mL/min/1.73m??? Normal >=60 [facility] Comment on above: Order Comment: Speci men Type: BLOOD SPECIMENOrdering Facility: [facility] Address: [address] [place] [address] Result Comment: Laurita mated Glomerular Filtration Rate [...] actual GFR. Performed By: #### 1 9123-9, 39448-0 ####[facility] LABIA [id number] [place] [id number] [place] Glucose [Mass/Vol] 116 mg/dL High 74-99 [facility] Comment on above: Order Comment: Aaliyah gibson Type: BLOOD SPECIMENOrdering Facility: [facility] Address: [address] [place] [place] [address] Result Comment: The [place] [employer] (ADA) provides guidance for cutoff [...] Standards of Medical Care in Diabetes 2016, [place] [employer]. Diabetes Care. 2016.39(Suppl 1). Performed By: #### 1 9123-9, 95225-6 ####[facility] LABIA [id number] [place] [id number] [place] Potassium [Moles/Vol] 3.8 mmol/L Normal 3.7-5.1 [facility] Comment on above: Order Comment: Aaliyah gibson Type: BLOOD SPECIMENOrdering Facility: [facility] Address: [address] [phone] Performed By: #### 1 9123-9, 83778-6 ####[facility] LABCLIA [id number] [place] [address] [place] Sodium [Moles/Vol] 140 mmol/L Normal 136-144 [facility] Comment on above: Order Comment: Speci men Type: BLOOD SPECIMENOrdering Facility: [facility] Address: [address] [place], [place] [address] Performed By: #### 1 9123-9, 14216-0 ####[facility] LABCLIA [id number] [place] [address] [place] Urea nitrogen [Mass/Vol] 24 mg/dL Normal 9-24 [facility] Comment on above: Order Comment: Speci men Type: BLOOD SPECIMENOrdering Facility: [facility] Address: [address] [place], [place] [address] Performed By: #### 1 9123-9, 69811-1 ####[facility] LABIA [id number] [place] [address] [place] CASE MANAGEMon 09-25-2021 CASE MANAGEM [facility] CBC panel Auto (Bld)on 09-25 Erythrocyte distribution width (RBC) [Ratio] 17.1 % High 11.5-15.0 [facility] Comment on above: Order Comment: Speci men Type: BLOOD SPECIMENOrdering Facility: [facility] Address: [address] [place], [place] [address] Performed By: #### 5 8410-2 ####[facility] LABIA [id number] [place] [address] [place] Hematocrit (Bld) [Volume fraction] 41.6 % Normal 39.0-51.0 [facility] Comment on above: Order Comment: Speci men Type: BLOOD SPECIMENOrdering Facility: [facility] Address: [address] [place], [place] [address] Performed By: #### 5 8410-2 ####[facility] LABIA [id number] [place] [address] [place] Hemoglobin (Bld) [Mass/Vol] 13.7 g/dL Normal 13.0-17.0 [facility] Comment on above: Order Comment: Speci men Type: BLOOD SPECIMENOrdering Facility: [facility] Address: [address] [place], [place] [address] Performed By: #### 5 8410-2 ####[facility] [id number] [place] [address] [place] MCH (RBC) [Entitic mass] 30.3 pg Normal 26.0-34.0 [facility] Comment on above: Order Comment: Speci men Type: BLOOD SPECIMENOrdering Facility: [facility] Address: [address] [place], [place] [address] Performed By: #### 5 8410-2 ####[facility] [id number] [address] [place] MCHC (RBC) [Mass/Vol] 32.9 g/dL Normal 30.5-36.0 [facility] Comment on above: Order Comment: Speci men Type: BLOOD SPECIMENOrdering Facility: [facility] Address: [address] [place], [place] [id number] Performed By: #### 5 8410-2 ####[facility] [id number] [address] [place] MCV (RBC) [Entitic vol] 92.0 fL Normal 80.0-100.0 [facility] Comment on above: Order Comment: Speci men Type: BLOOD SPECIMENOrdering Facility: [facility] Address: [address] [place], [place] [id number] Performed By: #### 5 8410-2 ####[facility] [id number] [place] [address] [place] Nucleated RBC (Bld) [#/Vol] 0.03 10*3/uL High <0.01 [facility] Comment on above: Order Comment: Speci men Type: BLOOD SPECIMENOrdering Facility: [facility] Address: [address] [place], [place] [address] Performed By: #### 5 8410-2 ####[facility] LABCLIA [id number] [place] [address] [place] Platelet mean volume (Bld) [Entitic vol] 10.2 fL Normal 9.0-12.7 [facility] Comment on above: Order Comment: Speci men Type: BLOOD SPECIMENOrdering Facility: [facility] Address: [address] [place] [address] Performed By: #### 5 8410-2 ####[facility] LABCLIA [id number] [place] [address] [place] Platelets (Bld) [#/Vol] 175 10*3/uL Normal 150-400 [facility] Comment on above: Order Comment: Speci men Type: BLOOD SPECIMENOrdering Facility: [facility] Address: [address] [place], [place] [address] Performed By: #### 5 8410-2 ####[facility] LABCLIA [id number] [place] [address] [place] RBC (Bld) [#/Vol] 4.52 10*6/uL Normal 4.20-6.00 [facility] Comment on above: Order Comment: Speci men Type: BLOOD SPECIMENOrdering Facility: [facility] Address: [address] [place], [place] [address] Performed By: #### 5 8410-2 ####[facility] LABCLIA [id number] [place] [address] [place] WBC (Bld) [#/Vol] 10.86 10*3/uL Normal 3.70-11.00 [facility] Comment on above: Order Comment: Speci men Type: BLOOD SPECIMENOrdering Facility: [facility] Address: [address] [place] [address] Performed By: #### 5 8410-2 ####[facility] [id number] [place] [address] [place] CNOVon 09-25-2021 CNOV [facility] [id number] 09-25-2021 ECG01 [facility] Magnesium SerPl-mCncon 09-25 Magnesium [Mass/Vol] 2.2 mg/dL Normal 1.7-2.3 [facility] Comment on above: Order Comment: Speci men Type: BLOOD SPECIMENOrdering Facility: [facility] Address: [address] [place] [address] Performed By: #### 1 9123-9, 30332-5 ####[facility] [id number] [place] [address] [place] POTASSIUM BLDon 09-25-2021 Potassium [Moles/Vol] 4.5 mmol/L Normal 3.7-5.1 [facility] Comment on above: Order Comment: Speci men Type: BLOOD SPECIMENOrdering Facility: [facility] Address: [address] [place] [address] Performed By: #### K 1 ####[facility] [id number] [place] [address] [place] PT EDon 09-25-2021 PT ED [facility] PT panel Coag (PPP)on 2021 INR Coag (PPP) [Relative time] 1.2 {INR} Normal 0.9-1.3 [facility] Comment on above: Order Comment: Speci men Type: BLOOD SPECIMENOrdering Facility: [facility] Address: [address], [place] [address] Result Comment: Constanza min K Antagonist (VKA) Therapeutic Range: INR 2 to 3 (Target INR of 2.5)Note: For patients treated with VKA drugs, such as warfarin, the [place] [employer] 2012 Guideline recommends [...] al. Chest 2012, 141:7S-47SCaitie RA, et al. [facility] 2017, 70: 252-289 Performed By: #### 3 4528-0 ####[facility] LABCLIA [id number] [place] [address] [place] PT Coag (PPP) [Time] 12.7 s Normal 9.7-13.0 [facility] Comment on above: Order Comment: Speci men Type: BLOOD SPECIMENOrdering Facility: [facility] Address: [address] [id number] Performed By: #### 3 4528-0 ####[facility] LABCLIA [id number] [place] [address] [place] TEEon 09-25-2021 LISA [facility] Basic metabolic 2000 panelon 09-24-2021 Anion gap [Moles/Vol] 12 mmol/L Normal 9-18 [facility] Comment on above: Order Comment: Speci men Type: BLOOD SPECIMENOrdering Facility: [facility] Address: [address] [place] [address] Performed By: #### 1 9123-9, 86451-0 ####[facility] LABCLIA [id number] [place] [address] [place] Calcium [Mass/Vol] 9.0 mg/dL Normal 8.5-10.2 [facility] Comment on above: Order Comment: Speci men Type: BLOOD SPECIMENOrdering Facility: [facility] Address: [address] [place], [place] [address] Performed By: #### 1 9123-9, 69195-7 ####[facility] LABCLIA [id number] [place] [address] [place] Chloride [Moles/Vol] 100 mmol/L Normal 97-105 [facility] Comment on above: Order Comment: Speci men Type: BLOOD SPECIMENOrdering Facility: [facility] Address: [address] [place] [address] Performed By: #### 1 9123-9, 09572-6 ####[facility] LABCLIA [id number] [place] [address] [place] CO2 [Moles/Vol] 29 mmol/L Normal 22-30 [facility] Comment on above: Order Comment: Speci men Type: BLOOD SPECIMENOrdering Facility: [facility] Address: [address] [place], [place] [address] Performed By: #### 1 9123-9, 68496-0 ####[facility] LABCLIA [id number] [place] [address] [place] Creatinine [Mass/Vol] 1.08 mg/dL Normal 0.73-1.22 [facility] Comment on above: Order Comment: Speci men Type: BLOOD SPECIMENOrdering Facility: [facility] Address: [address] [place], [place] [address] Performed By: #### 1 9123-9, 12312-3 ####[facility] LABCLIA [id number] [place] [address] [place] ESTIMATED GLOMERULAR FILTRATION RATE 80 mL/min/1.73m??? Normal >=60 [facility] Comment on above: Order Comment: Aaliyah gibson Type: BLOOD SPECIMENOrdering Facility: [facility] Address: [address] [place] [address] Result Comment: Laurita mated Glomerular Filtration Rate [...] actual GFR. Performed By: #### 1 9123-9, 33074-5 ####[facility] [id number] [place] [address] [place] Glucose [Mass/Vol] 150 mg/dL High 74-99 [facility] Comment on above: Order Comment: Aaliyah gibson Type: BLOOD SPECIMENOrdering Facility: [facility] Address: [address] [place] [address] Result Comment: The [place] [employer] (ADA) provides guidance for cutoff [...] Standards of Medical Care in Diabetes 2016, [place] [employer]. Diabetes Care. 2016.39(Suppl 1). Performed By: #### 1 9123-9, 24416-1 ####[facility] [id number] [place] [address] [place] Potassium [Moles/Vol] 3.5 mmol/L Low 3.7-5.1 [facility] Comment on above: Order Comment: Aaliyah gibson Type: BLOOD SPECIMENOrdering Facility: [facility] Address: [address] [place], [place] [address] Performed By: #### 1 9123-9, 53843-4 ####[facility] LABIA [id number] [place] [address] [place] Sodium [Moles/Vol] 141 mmol/L Normal 136-144 [facility] Comment on above: Order Comment: Speci men Type: BLOOD SPECIMENOrdering Facility: [facility] Address: [address] [place], [place] [address] Performed By: #### 1 9123-9, 32715-6 ####[facility] LABIA [id number] [place] [address] [place] Urea nitrogen [Mass/Vol] 22 mg/dL Normal 9-24 [facility] Comment on above: Order Comment: Speci men Type: BLOOD SPECIMENOrdering Facility: [facility] Address: [address] [place], [place] [address] Performed By: #### 1 9123-9, 91881-4 ####[facility] LABIA [id number] [place] [address] [place] CBC panel Auto (Bld)on 09-24 Erythrocyte distribution width (RBC) [Ratio] 17.2 % High 11.5-15.0 [facility] Comment on above: Order Comment: Speci men Type: BLOOD SPECIMENOrdering Facility: [facility] Address: [address] [place], [place] [address] Performed By: #### 5 8410-2 ####[facility] LABIA [id number] [place] [address] [place] Hematocrit (Bld) [Volume fraction] 42.3 % Normal 39.0-51.0 [facility] Comment on above: Order Comment: Speci men Type: BLOOD SPECIMENOrdering Facility: [facility] Address: [address] [place], [place] [address] Performed By: #### 5 8410-2 ####[facility] LABIA [id number] [place] [address] [place] Hemoglobin (Bld) [Mass/Vol] 13.6 g/dL Normal 13.0-17.0 [facility] Comment on above: Order Comment: Speci men Type: BLOOD SPECIMENOrdering Facility: [facility] Address: [address] [place], [place] [address] Performed By: #### 5 8410-2 ####[facility] LABIA [id number] [place] [address] [place] MCH (RBC) [Entitic mass] 30.0 pg Normal 26.0-34.0 [facility] Comment on above: Order Comment: Speci men Type: BLOOD SPECIMENOrdering Facility: [facility] Address: [address] [place], [place] [address] Performed By: #### 5 8410-2 ####[facility] LABIA [id number] [place] [address] [place] MCHC (RBC) [Mass/Vol] 32.2 g/dL Normal 30.5-36.0 [facility] Comment on above: Order Comment: Speci men Type: BLOOD SPECIMENOrdering Facility: [facility] Address: [address] [place], [place] [address] Performed By: #### 5 8410-2 ####[facility] LABIA [id number] [place] [address] [place] MCV (RBC) [Entitic vol] 93.4 fL Normal 80.0-100.0 [facility] Comment on above: Order Comment: Speci men Type: BLOOD SPECIMENOrdering Facility: [facility] Address: [address] [place], [place] [address] Performed By: #### 5 8410-2 ####[facility] LABIA [id number] [place] [address] [place] Nucleated RBC (Bld) [#/Vol] 10*3/uL Normal <0.01 [facility] Comment on above: Order Comment: Speci men Type: BLOOD SPECIMENOrdering Facility: [facility] Address: [address] [place], [place] [address] Performed By: #### 5 8410-2 ####[facility] LABCLIA [id number] [place] [address] [place] Platelet mean volume (Bld) [Entitic vol] 10.1 fL Normal 9.0-12.7 [facility] Comment on above: Order Comment: Speci men Type: BLOOD SPECIMENOrdering Facility: [facility] Address: [address] [place] [address] Performed By: #### 5 8410-2 ####[facility] LABCLIA [id number] [place] [address] [place] Platelets (Bld) [#/Vol] 186 10*3/uL Normal 150-400 [facility] Comment on above: Order Comment: Speci men Type: BLOOD SPECIMENOrdering Facility: [facility] Address: [address] [place], [place] [address] Performed By: #### 5 8410-2 ####[facility] LABCLIA [id number] [place] [address] [place] RBC (Bld) [#/Vol] 4.53 10*6/uL Normal 4.20-6.00 [facility] Comment on above: Order Comment: Speci men Type: BLOOD SPECIMENOrdering Facility: [facility] Address: [address] [place], [place] [address] Performed By: #### 5 8410-2 ####[facility] LABCLIA [id number] [place] [address] [place] WBC (Bld) [#/Vol] 9.42 10*3/uL Normal 3.70-11.00 [facility] Comment on above: Order Comment: Speci men Type: BLOOD SPECIMENOrdering Facility: [facility] Address: [address] [place] [address] Performed By: #### 5 8410-2 ####[facility] LABCLIA [id number] [place] [address] [place] Magnesium SerPl-mCncon 09-24 Magnesium [Mass/Vol] 2.1 mg/dL Normal 1.7-2.3 [facility] Comment on above: Order Comment: Speci men Type: BLOOD SPECIMENOrdering Facility: [facility] Address: [address] [place] [address] Performed By: #### 1 9123-9, 99129-3 ####[facility] LABCLIA [id number] [place] [address] [place] POTASSIUM BLDon 09-24-2021 Potassium [Moles/Vol] 3.7 mmol/L Normal 3.7-5.1 [facility] Comment on above: Order Comment: Speci men Type: BLOOD SPECIMENOrdering Facility: [facility] Address: [address] [place] [address] Performed By: #### K 1 ####[facility] LABIA [id number] [place] [address] [place] PT EDon 09-24-2021 PT ED [facility] PT panel Coag (PPP)on 2021 INR Coag (PPP) [Relative time] 1.2 {INR} Normal 0.9-1.3 [facility] Comment on above: Order Comment: Speci men Type: BLOOD SPECIMENOrdering Facility: [facility] Address: [address] [place] [address] Result Comment: Constanza min K Antagonist (VKA) Therapeutic Range: INR 2 to 3 (Target INR of 2.5)Note: For patients treated with VKA drugs, such as warfarin, the [place] [employer] 2012 Guideline recommends [...] al. Chest 2012, 141:7S-47SNishimura RA, et al. [facility] 2017, 70: 252-289 Performed By: #### 3 4528-0 ####[facility] [id number] [place] [address] [place] PT Coag (PPP) [Time] 12.3 s Normal 9.7-13.0 [facility] Comment on above: Order Comment: Speci men Type: BLOOD SPECIMENOrdering Facility: [facility] Address: [address] [address] Performed By: #### 3 4528-0 ####[facility] [id number] [place] [address] [place] PTT, ANTICOAGULANT THERAPYon 09-24-2021 aPTT Coag (PPP) [Time] 34.3 s High 23.0-32.4 [facility] Comment on above: Order Comment: Speci men Type: BLOOD SPECIMENOrdering Facility: [facility] Address: [address] [address] Performed By: #### P TTA ####[facility] LABIA [id number] [address] [place] aPTT Coag (PPP) [Time] 53.2 s High 23.0-32.4 [facility] Comment on above: Order Comment: Speci men Type: BLOOD SPECIMENOrdering Facility: [facility] Address: [address] [place], [place] [address] Performed By: #### P TTA ####[facility] LABCLIA [id number] [address] [address] [place] Basic metabolic 2000 panelon 09-23-2021 Anion gap [Moles/Vol] 9 mmol/L Normal 9-18 [facility] Comment on above: Order Comment: Speci men Type: BLOOD SPECIMENOrdering Facility: [facility] Address: [address] [place], [place] [address] Performed By: #### 3 016-3, 21848-6, 79674-4, ####[facility] LABIA [id number] [place] [address] [place] Calcium [Mass/Vol] 9.1 mg/dL Normal 8.5-10.2 [facility] Comment on above: Order Comment: Speci men Type: BLOOD SPECIMENOrdering Facility: [facility] Address: [address] [place], [place] [address] Performed By: #### 3 016-3, 77246-3, 93751-6, ####[facility] LABCLIA [id number] [place] [address] [place] Chloride [Moles/Vol] 100 mmol/L Normal 97-105 [facility] Comment on above: Order Comment: Speci men Type: BLOOD SPECIMENOrdering Facility: [facility] Address: [address] [place], [place] [phone] Performed By: #### 3 016-3, 07413-0, 01572-7, ####[facility] LABCLIA [id number] [address] [place] [id number] [place] CO2 [Moles/Vol] 32 mmol/L High 22-30 [facility] Comment on above: Order Comment: Speci men Type: BLOOD SPECIMENOrdering Facility: [facility] Address: [address] [place], [place] [phone] Performed By: #### 3 016-3, 71668-2, 56025-9, ####[facility] LABCLIA [id number] [place] [address] [place] Creatinine [Mass/Vol] 1.20 mg/dL Normal 0.73-1.22 [facility] Comment on above: Order Comment: Speci men Type: BLOOD SPECIMENOrdering Facility: [facility] Address: [address] [place], [place] [address] Performed By: #### 3 016-3, 76842-7, 80372-1, ####[facility] LABIA [id number] [place] [address] [place] ESTIMATED GLOMERULAR FILTRATION RATE 71 mL/min/1.73m??? Normal >=60 [facility] Comment on above: Order Comment: Speci men Type: BLOOD SPECIMENOrdering Facility: [facility] Address: [address] [place] [address] Result Comment: Laurita mated Glomerular Filtration Rate [...] actual GFR. Performed By: #### 3 016-3, 01289-5, 89531-2, ####[facility] LABIA [id number] [place] [address] [place] Glucose [Mass/Vol] 133 mg/dL High 74-99 [facility] Comment on above: Order Comment: Speci men Type: BLOOD SPECIMENOrdering Facility: [facility] Address: [address] [place], [place] [address] Result Comment: The [place] [employer] (ADA) provides guidance for cutoff [...] Standards of Medical Care in Diabetes 2016, [place] [employer]. Diabetes Care. 2016.39(Suppl 1). Performed By: #### 3 016-3, 67875-2, 06330-2, ####[facility] LABCLIA [id number] [place] [address] [place] Potassium [Moles/Vol] 3.1 mmol/L Low 3.7-5.1 [facility] Comment on above: Order Comment: Speci men Type: BLOOD SPECIMENOrdering Facility: [facility] Address: [address] [place] [address] Performed By: #### 3 016-3, 37173-7, 55791-3, ####[facility] LABIA [id number] [place] [address] [place] Sodium [Moles/Vol] 141 mmol/L Normal 136-144 [facility] Comment on above: Order Comment: Speci men Type: BLOOD SPECIMENOrdering Facility: [facility] Address: [address] [place] [address] Performed By: #### 3 016-3, 96849-8, 09967-5, ####[facility] LABCLIA [id number] [place] [address] [place] Urea nitrogen [Mass/Vol] 22 mg/dL Normal 9-24 [facility] Comment on above: Order Comment: Speci men Type: BLOOD SPECIMENOrdering Facility: [facility] Address: [address] [place] [address] Performed By: #### 3 016-3, 43637-4, 37898-3, 63058-6 ####[facility] LABCLIA [id number] [place] [address] [place] CASE MGT INIT ASSESon 2021 CASE MGT INIT ASSES Normal [facility] CBC W Auto Differential pane l (Bld)on 09-23-2021 Basophils (Bld) [#/Vol] 10*3/uL Normal <0.11 [facility] Comment on above: Order Comment: Speci men Type: BLOOD SPECIMENOrdering Facility: [facility] Address: [address] [place] [address] Performed By: #### 5 7021-8 ####[facility] LABCLIA [id number] [place] [address] [place] Basophils/100 WBC (Bld) 0.1 % Normal [facility] Comment on above: Order Comment: Speci men Type: BLOOD SPECIMENOrdering Facility: [facility] Address: [address] [place] [address] Performed By: #### 5 7021-8 ####[facility] LABCLIA [id number] [place] [address] [place] Differential cell count method Nom (Bld) Auto [facility] Comment on above: Order Comment: Speci men Type: BLOOD SPECIMENOrdering Facility: [facility] Address: [address] [place] [address] Performed By: #### 5 7021-8 ####[facility] LABCLIA [id number] [place] [address] [place] Eosinophils (Bld) [#/Vol] 10*3/uL Normal <0.46 [facility] Comment on above: Order Comment: Speci men Type: BLOOD SPECIMENOrdering Facility: [facility] Address: [address] [place] [address] Performed By: #### 5 7021-8 ####[facility] LABCLIA [id number] [place] [address] [place] Eosinophils/100 WBC (Bld) 0.0 % [facility] Comment on above: Order Comment: Speci men Type: BLOOD SPECIMENOrdering Facility: [facility] Address: [address] [place], [place] [address] Performed By: #### 5 7021-8 ####[facility] LABCLIA [id number] [place] [address] [place] Erythrocyte distribution width (RBC) [Ratio] 17.2 % High 11.5-15.0 [facility] Comment on above: Order Comment: Speci men Type: BLOOD SPECIMENOrdering Facility: [facility] Address: [address] [place], [place] [address] Performed By: #### 5 7021-8 ####[facility] LABCLIA [id number] [place] [address] [place] Hematocrit (Bld) [Volume fraction] 39.3 % Normal 39.0-51.0 [facility] Comment on above: Order Comment: Speci men Type: BLOOD SPECIMENOrdering Facility: [facility] Address: [address] [place] [address] Performed By: #### 5 7021-8 ####[facility] LABCLIA [id number] [place] [address] [place] Hemoglobin (Bld) [Mass/Vol] 12.7 g/dL Low 13.0-17.0 [facility] Comment on above: Order Comment: Speci men Type: BLOOD SPECIMENOrdering Facility: [facility] Address: [address] [place] [address] Performed By: #### 5 7021-8 ####[facility] LABCLIA [id number] [address] [place] IMMATURE GRAN % 0.7 % [facility] Comment on above: Order Comment: Speci men Type: BLOOD SPECIMENOrdering Facility: [facility] Address: [address] [place] [address] Performed By: #### 5 7021-8 ####[facility] LABCLIA [id number] [facility] IMMATURE GRAN ABS 0.06 k/uL Normal <0.10 [facility] Comment on above: Order Comment: Speci men Type: BLOOD SPECIMENOrdering Facility: [facility] Address: [address] [place] [address] Performed By: #### 5 7021-8 ####[facility] LABIA [id number] [place] [address] [place] Lymphocytes (Bld) [#/Vol] 1.69 10*3/uL Normal 1.00-4.00 [facility] Comment on above: Order Comment: Speci men Type: BLOOD SPECIMENOrdering Facility: [facility] Address: [address] [place] [address] Performed By: #### 5 7021-8 ####[facility] LABIA [id number] [address] [place] Lymphocytes/100 WBC (Bld) 18.7 % [facility] Comment on above: Order Comment: Speci men Type: BLOOD SPECIMENOrdering Facility: [facility] Address: [address] [place] [address] Performed By: #### 5 7021-8 ####[facility] LABCLIA [id number] [place] [address] [place] MCH (RBC) [Entitic mass] 30.2 pg Normal 26.0-34.0 [facility] Comment on above: Order Comment: Speci men Type: BLOOD SPECIMENOrdering Facility: [facility] Address: [address] [place], [place] [address] Performed By: #### 5 7021-8 ####[facility] LABCLIA [id number] [place] [address] [place] MCHC (RBC) [Mass/Vol] 32.3 g/dL Normal 30.5-36.0 [facility] Comment on above: Order Comment: Speci men Type: BLOOD SPECIMENOrdering Facility: [facility] Address: [address] [place], [place] [address] Performed By: #### 5 7021-8 ####[facility] LABIA [id number] [place] [address] [place] MCV (RBC) [Entitic vol] 93.3 fL Normal 80.0-100.0 [facility] Comment on above: Order Comment: Speci men Type: BLOOD SPECIMENOrdering Facility: [facility] Address: [address] [place] [address] Performed By: #### 5 7021-8 ####[facility] LABIA [id number] [address] [place] Monocytes (Bld) [#/Vol] 0.62 10*3/uL Normal <0.87 [facility] Comment on above: Order Comment: Speci men Type: BLOOD SPECIMENOrdering Facility: [facility] Address: [address] [place] [address] Performed By: #### 5 7021-8 ####[facility] LABCLIA [id number] [address] [place] Monocytes/100 WBC (Bld) 6.8 % Normal [facility] Comment on above: Order Comment: Speci men Type: BLOOD SPECIMENOrdering Facility: [facility] Address: [address] [place], [place] [id number] Performed By: #### 5 7021-8 ####[facility] LABCLIA [id number] [place] [address] [place] Neutrophils (Bld) [#/Vol] 6.68 10*3/uL Normal 1.45-7.50 [facility] Comment on above: Order Comment: Speci men Type: BLOOD SPECIMENOrdering Facility: [facility] Address: [address] [place], [place] [id number] Performed By: #### 5 7021-8 ####[facility] LABCLIA [id number] [place] [address] [place] Neutrophils/100 WBC (Bld) 73.7 % [facility] Comment on above: Order Comment: Speci men Type: BLOOD SPECIMENOrdering Facility: [facility] Address: [address] [place], [place] [address] Performed By: #### 5 7021-8 ####[facility] LABCLIA [id number] [place] [address] [place] Nucleated RBC (Bld) [#/Vol] 10*3/uL Normal <0.01 [facility] Comment on above: Order Comment: Speci men Type: BLOOD SPECIMENOrdering Facility: [facility] Address: [address] [place], [place] [address] Performed By: #### 5 7021-8 ####[facility] LABCLIA [id number] [place] [address] [place] Nucleated RBC/100 WBC (Bld) [Ratio] 0.0 /100 WBC [facility] Comment on above: Order Comment: Speci men Type: BLOOD SPECIMENOrdering Facility: [facility] Address: [address] [place], [place] [address] Performed By: #### 5 7021-8 ####[facility] LABCLIA [id number] [place] [address] [place] Platelet mean volume (Bld) [Entitic vol] 10.3 fL Normal 9.0-12.7 [facility] Comment on above: Order Comment: Speci men Type: BLOOD SPECIMENOrdering Facility: [facility] Address: [address] [place], [place] [address] Performed By: #### 5 7021-8 ####[facility] LABCLIA [id number] [place] [address] [place] Platelets (Bld) [#/Vol] 178 10*3/uL Normal 150-400 [facility] Comment on above: Order Comment: Speci men Type: BLOOD SPECIMENOrdering Facility: [facility] Address: [address] [place], [place] [address] Performed By: #### 5 7021-8 ####[facility] LABIA [id number] [place] [address] [place] RBC (Bld) [#/Vol] 4.21 10*6/uL Normal 4.20-6.00 [facility] Comment on above: Order Comment: Speci men Type: BLOOD SPECIMENOrdering Facility: [facility] Address: [address] [place], [place] [address] Performed By: #### 5 7021-8 ####[facility] LABIA [id number] [place] [address] [place] WBC (Bld) [#/Vol] 9.06 10*3/uL Normal 3.70-11.00 [facility] Comment on above: Order Comment: Speci men Type: BLOOD SPECIMENOrdering Facility: [facility] Address: [address] [place], [place] [address] Performed By: #### 5 7021-8 ####[facility] LABCLIA [id number] [place] [address] [place] CBC panel Auto (Bld)on 09-23 Erythrocyte distribution width (RBC) [Ratio] 17.1 % High 11.5-15.0 [facility] Comment on above: Order Comment: Speci men Type: BLOOD SPECIMENOrdering Facility: [facility] Address: [address] [place], [place] [address] Performed By: #### 5 8410-2 ####[facility] LABCLIA [id number] [place] [address] [place] Hematocrit (Bld) [Volume fraction] 41.2 % Normal 39.0-51.0 [facility] Comment on above: Order Comment: Speci men Type: BLOOD SPECIMENOrdering Facility: [facility] Address: [address] [place], [place] [address] Performed By: #### 5 8410-2 ####[facility] LABCLIA [id number] [place] [address] [place] Hemoglobin (Bld) [Mass/Vol] 13.3 g/dL Normal 13.0-17.0 [facility] Comment on above: Order Comment: Speci men Type: BLOOD SPECIMENOrdering Facility: [facility] Address: [address] [place], [place] [address] Performed By: #### 5 8410-2 ####[facility] LABCLIA [id number] [place] [address] [place] MCH (RBC) [Entitic mass] 30.4 pg Normal 26.0-34.0 [facility] Comment on above: Order Comment: Speci men Type: BLOOD SPECIMENOrdering Facility: [facility] Address: [address] [place], [place] [address] Performed By: #### 5 8410-2 ####[facility] LABCLIA [id number] [place] [address] [place] MCHC (RBC) [Mass/Vol] 32.3 g/dL Normal 30.5-36.0 [facility] Comment on above: Order Comment: Speci men Type: BLOOD SPECIMENOrdering Facility: [facility] Address: [address] [place] [phone] Performed By: #### 5 8410-2 ####[facility] LABCLIA [id number] [address] MCV (RBC) [Entitic vol] 94.1 fL Normal 80.0-100.0 [facility] Comment on above: Order Comment: Speci men Type: BLOOD SPECIMENOrdering Facility: [facility] Address: [address] [place], [place] [address] Performed By: #### 5 8410-2 ####[facility] LABIA [id number] [place] [address] [place] Nucleated RBC (Bld) [#/Vol] 10*3/uL Normal <0.01 [facility] Comment on above: Order Comment: Speci men Type: BLOOD SPECIMENOrdering Facility: [facility] Address: [address] [place], [place] [address] Performed By: #### 5 8410-2 ####[facility] LABIA [id number] [address] [place] Platelet mean volume (Bld) [Entitic vol] 10.0 fL Normal 9.0-12.7 [facility] Comment on above: Order Comment: Speci men Type: BLOOD SPECIMENOrdering Facility: [facility] Address: [address] [place] [phone] Performed By: #### 5 8410-2 ####[facility] LABIA [id number] [place] [address] [place] Platelets (Bld) [#/Vol] 186 10*3/uL Normal 150-400 [facility] Comment on above: Order Comment: Speci men Type: BLOOD SPECIMENOrdering Facility: [facility] Address: [address] [place] [address] Performed By: #### 5 8410-2 ####[facility] LABCLIA [id number] [place] [address] [place] RBC (Bld) [#/Vol] 4.38 10*6/uL Normal 4.20-6.00 [facility] Comment on above: Order Comment: Speci men Type: BLOOD SPECIMENOrdering Facility: [facility] Address: [address] [place], [place] [address] Performed By: #### 5 8410-2 ####[facility] LABIA [id number] [place] [address] [place] WBC (Bld) [#/Vol] 8.98 10*3/uL Normal 3.70-11.00 [facility] Comment on above: Order Comment: Speci men Type: BLOOD SPECIMENOrdering Facility: [facility] Address: [address] [place], [place] [address] Performed By: #### 5 8410-2 ####[facility] LABIA [id number] [place] [address] [place] CNOVon 09-23-2021 CNOV [facility] Comprehensive metabolic 2000 panelon 09-23-2021 Albumin [Mass/Vol] 3.6 g/dL Low 3.9-4.9 [facility] Comment on above: Order Comment: Speci men Type: BLOOD SPECIMENOrdering Facility: [facility] Address: [address] [place], [place] [address] Performed By: #### 2 4323-8, 28592-1, 29760-4 ####[facility] LABIA [id number] [place] [address] [place] ALP [Catalytic activity/Vol] 93 U/L Normal 38-113 [facility] Comment on above: Order Comment: Speci men Type: BLOOD SPECIMENOrdering Facility: [facility] Address: [address] [place], [place] [address] Performed By: #### 2 4323-8, 12449-3, ####[facility] LABCLIA [id number] [place] [address] [place] ALT [Catalytic activity/Vol] 112 U/L High 10-54 [facility] Comment on above: Order Comment: Speci men Type: BLOOD SPECIMENOrdering Facility: [facility] Address: [address] [place] [address] Performed By: #### 2 4323-8, 10856-2, ####[facility] LABCLIA [id number] [place] [address] [place] Anion gap [Moles/Vol] 10 mmol/L Normal 9-18 [facility] Comment on above: Order Comment: Speci men Type: BLOOD SPECIMENOrdering Facility: [facility] Address: [address] [place] [address] Performed By: #### 2 4323-8, 64232-1, ####[facility] LABCLIA [id number] [place] [address] [place] AST [Catalytic activity/Vol] 52 U/L High 14-40 [facility] Comment on above: Order Comment: Speci men Type: BLOOD SPECIMENOrdering Facility: [facility] Address: [address] [place] [address] Performed By: #### 2 4323-8, 57245-9, ####[facility] LABCLIA [id number] [place] [id number] [place] Bilirubin [Mass/Vol] 0.4 mg/dL Normal 0.2-1.3 [facility] Comment on above: Order Comment: Speci men Type: BLOOD SPECIMENOrdering Facility: [facility] Address: [address] [place] [address] Performed By: #### 2 4323-8, 42323-6, ####[facility] LABCLIA [id number] [place] [address] [place] Calcium [Mass/Vol] 8.8 mg/dL Normal 8.5-10.2 [facility] Comment on above: Order Comment: Speci men Type: BLOOD SPECIMENOrdering Facility: [facility] Address: [address] [place], [place] [address] Performed By: #### 2 4323-8, 26452-6, ####[facility] LABCLIA [id number] [place] [address] [place] Chloride [Moles/Vol] 101 mmol/L Normal 97-105 [facility] Comment on above: Order Comment: Speci men Type: BLOOD SPECIMENOrdering Facility: [facility] Address: [address] [place] [address] Performed By: #### 2 4323-8, 54714-2, ####[facility] LABCLIA [id number] [place] [address] [place] CO2 [Moles/Vol] 31 mmol/L High 22-30 [facility] Comment on above: Order Comment: Speci men Type: BLOOD SPECIMENOrdering Facility: [facility] Address: [address] [place], [place] [address] Performed By: #### 2 4323-8, 10452-0, ####[facility] LABCLIA [id number] [place] [id number] [place] Creatinine [Mass/Vol] 1.24 mg/dL High 0.73-1.22 [facility] Comment on above: Order Comment: Speci men Type: BLOOD SPECIMENOrdering Facility: [facility] Address: [address] [place], [place] [phone] Performed By: #### 2 4323-8, 84879-0, 64115-9 ####[facility] LABCLIA [id number] [place] [id number] [place] ESTIMATED GLOMERULAR FILTRATION RATE 68 mL/min/1.73m??? Normal >=60 [facility] Comment on above: Order Comment: Aaliyah gibson Type: BLOOD SPECIMENOrdering Facility: [facility] Address: [address] [place] [address] Result Comment: Laurita mated Glomerular Filtration Rate [...] actual GFR. Performed By: #### 2 4323-8, 41802-3, 33263-5 ####[facility] LABIA [id number] [place] [id number] [place] Glucose [Mass/Vol] 176 mg/dL High 74-99 [facility] Comment on above: Order Comment: Aaliyah gibson Type: BLOOD SPECIMENOrdering Facility: [facility] Address: [address] [place] [address] Result Comment: The [place] [employer] (ADA) provides guidance for cutoff [...] Standards of Medical Care in Diabetes 2016, [place] [employer]. Diabetes Care. 2016.39(Suppl 1). Performed By: #### 2 4323-8, 03668-7, 62811-1 ####[facility] LABIA [id number] [place] [id number] [place] Potassium [Moles/Vol] 3.2 mmol/L Low 3.7-5.1 [facility] Comment on above: Order Comment: Speci men Type: BLOOD SPECIMENOrdering Facility: [facility] Address: [address] [place] [address] Performed By: #### 2 4323-8, 07961-1, 91229-1 ####[facility] LABCLIA [id number] [place] [address] [place] Protein [Mass/Vol] 6.0 g/dL Low 6.3-8.0 [facility] Comment on above: Order Comment: Speci men Type: BLOOD SPECIMENOrdering Facility: [facility] Address: [address] [place] [address] Performed By: #### 2 4323-8, 46455-0, ####[facility] LABCLIA [id number] [place] [address] [place] Sodium [Moles/Vol] 142 mmol/L Normal 136-144 [facility] Comment on above: Order Comment: Speci men Type: BLOOD SPECIMENOrdering Facility: [facility] Address: [address] [place] [address] Performed By: #### 2 4323-8, 61532-8, ####[facility] LABCLIA [id number] [place] [address] [place] Urea nitrogen [Mass/Vol] 24 mg/dL Normal 9-24 [facility] Comment on above: Order Comment: Speci men Type: BLOOD SPECIMENOrdering Facility: [facility] Address: [address] [place], [place] [address] Performed By: #### 2 4323-8, 69214-9, 71058-6 ####[facility] LABCLIA [id number] [place] [id number] [place] ECG COMPLETEon 09-23-2021 ECG COMPLETE [facility] Lipid 1996 panelon 2 Cholesterol [Mass/Vol] 152 mg/dL Normal <200 [facility] Comment on above: Order Comment: Speci men Type: BLOOD SPECIMENOrdering Facility: [facility] Address: [address] [place] [address] Result Comment: <200 mg/dL, Desirable 200-239 mg/dL, Borderline high>239 mg/dL, High Performed By: #### 3 016-3, 32970-2, 32397-3, ####[facility] LABCLIA [id number] [facility] Cholesterol in HDL [Mass/Vol] 55 mg/dL Normal >39 [facility] Comment on above: Order Comment: Speci men Type: BLOOD SPECIMENOrdering Facility: [facility] Address: [address] [place] [address] Result Comment: 40-5 9 mg/dL, Acceptable>59 mg/dL, High: Negative risk factor for coronary heart disease<40 mg/dL, Low: Positive risk factor for coronary heart disease Performed By: #### 3 016-3, 64688-2, 49587-0, ####[facility] LABCLIA [id number] [address] [place] Cholesterol in LDL [Mass/Vol] 87 mg/dL Normal <100 [facility] Comment on above: Order Comment: Speci men Type: BLOOD SPECIMENOrdering Facility: [facility] Address: [address] [place] [address] Result Comment: <100 mg/dL, Optimal 100-129 mg/dL, Near optimal/above optimal 130-159 mg/dL, Borderline high 160-189 mg/dL, High>189 mg/dL, Very highSecondary prevention optimal LDL Cholesterol levels are recommended to be < 70 mg/dL Performed By: #### 3 016-3, 36506-1, 03052-5, 67028-6 ####[facility] LABCLIA [id number] [address] Cholesterol in LDL/Cholesterol in HDL [Mass ratio] 1.58 {ratio} Normal <2.54 [facility] Comment on above: Order Comment: Speci men Type: BLOOD SPECIMENOrdering Facility: [facility] Address: [address] [place] [address] Result Comment: Refe rence:1. National Cholesterol Education Program ATP III Guideline At-A-Glance Quick Desk Reference: National Heart, Lung, and Blood [place]. National Institutes of Health. 2001: NIH Publication No. 01-3305.2. An International Atherosclerosis Society position paper: global recommendations for the management of dyslipidemia: executive summary, Atherosclerosis. 2014: 232(2):410-413. Performed By: #### 3 016-3, 21440-5, 96926-6, 97044-6 ####[facility] LABCLIA [id number] [address] [place] Cholesterol in VLDL [Mass/Vol] 10 mg/dL Normal <30 [facility] Comment on above: Order Comment: Ronyi men Type: BLOOD SPECIMENOrdering Facility: [facility] Address: [address] [place] [address] Performed By: #### 3 016-3, 19522-4, 60933-4, 05611-4 ####[facility] LABCLIA [id number] [place] [address] [place] Cholesterol non HDL [Mass/Vol] 97 mg/dL Normal <130 [facility] Comment on above: Order Comment: Speci men Type: BLOOD SPECIMENOrdering Facility: [facility] Address: [address] [place] [address] Result Comment: <130 mg/dL, Optimal 130-159 mg/dL, Near optimal/above optimal 160-189 mg/dL, Borderline high 190-219 mg/dL, High>219 mg/dL, Very highSecondary prevention optimal non HDL Cholesterol levels are recommended to be <100 mg/dL Performed By: #### 3 016-3, 68000-0, 26060-1, ####[facility] LABCLIA [id number] [place] [address] [place] Cholesterol.total/Urvashi sterol in HDL [Mass ratio] 2.76 {ratio} Normal <5.10 [facility] Comment on above: Order Comment: Speci men Type: BLOOD SPECIMENOrdering Facility: [facility] Address: [address] [place] [address] Performed By: #### 3 016-3, 40796-3, 31374-6, ####[facility] LABCLIA [id number] [address] [place] FASTING TIME 9 hrs [facility] Comment on above: Order Comment: Speci men Type: BLOOD SPECIMENOrdering Facility: [facility] Address: [address] [place] [address] Performed By: #### 3 016-3, 96664-6, 79036-7, ####[facility] LABCLIA [id number] [place] [address] [place] Triglyceride [Mass/Vol] 51 mg/dL Normal <150 [facility] Comment on above: Order Comment: Speci men Type: BLOOD SPECIMENOrdering Facility: [facility] Address: [address] [place] [address] Result Comment: <150 mg/dL, Normal 150-199 mg/dL, Borderline high 200-499 mg/dL, High>499 mg/dL, Very high Performed By: #### 3 016-3, 80350-3, 07038-9, ####[facility] LABCLIA [id number] [place] [address] [place] Magnesium SerPl-mCncon 09-23 Magnesium [Mass/Vol] 2.0 mg/dL Normal 1.7-2.3 [facility] Comment on above: Order Comment: Speci men Type: BLOOD SPECIMENOrdering Facility: [facility] Address: [address] [place] [address] Performed By: #### 3 016-3, 24365-9, 75759-1, 67910-2 ####[facility] LABCLIA [id number] [place] [address] [place] Magnesium [Mass/Vol] 2.1 mg/dL Normal 1.7-2.3 [facility] Comment on above: Order Comment: Speci men Type: BLOOD SPECIMENOrdering Facility: [facility] Address: [address] [place] [address] Performed By: #### 2 4323-8, 79247-8, ####[facility] LABCLIA [id number] [place] [address] [place] NT-proBNP [facility] 09-23 Natriuretic peptide.B prohormone N-Terminal [Mass/Vol] 1946 pg/mL High <125 [facility] Comment on above: Order Comment: Speci men Type: BLOOD SPECIMENOrdering Facility: [facility] Address: [address] [place] [address] Performed By: #### 2 4323-8, 50561-7, ####[facility] LABCLIA [id number] [place] [address] [place] POTASSIUM BLDon 09-23-2021 Potassium [Moles/Vol] 3.4 mmol/L Low 3.7-5.1 [facility] Comment on above: Order Comment: Speci men Type: BLOOD SPECIMENOrdering Facility: [facility] Address: [address] [place], [place] [address] Performed By: #### K 1 ####[facility] LABCLIA [id number] [place] [address] [place] Potassium [Moles/Vol] 3.5 mmol/L Low 3.7-5.1 [facility] Comment on above: Order Comment: Speci men Type: BLOOD SPECIMENOrdering Facility: [facility] Address: [address] [place] [address] Performed By: #### K 1 ####[facility] LABCLIA [id number] [place] [address] [place] PT panel Coag (PPP)on 2021 INR Coag (PPP) [Relative time] 1.2 {INR} Normal 0.9-1.3 [facility] Comment on above: Order Comment: Speci men Type: BLOOD SPECIMENOrdering Facility: [facility] Address: [address] [place] [address] Result Comment: Constanza min K Antagonist (VKA) Therapeutic Range: INR 2 to 3 (Target INR of 2.5)Note: For patients treated with VKA drugs, such as warfarin, the [place] [employer] 2012 Guideline recommends [...] al. Chest 2012, 141:7S-47SNishimkhalida RA, et al. [facility] 2017, 70: 252-289 Performed By: #### P [facility], 09155-1 ####[facility] LABIA [id number] [place] [address] [place] PT Coag (PPP) [Time] 12.3 s Normal 9.7-13.0 [facility] Comment on above: Order Comment: Speci men Type: BLOOD SPECIMENOrdering Facility: [facility] Address: [address] [place] [address] Performed By: #### P [facility], 63026-1 ####[facility] LABCLIA [id number] [place] [address] [place] INR Coag (PPP) [Relative time] 1.1 {INR} Normal 0.9-1.3 [facility] Comment on above: Order Comment: Aaliyah gibson Type: BLOOD SPECIMENOrdering Facility: [facility] Address: [address] [place] [address] Result Comment: Constanza min K Antagonist (VKA) Therapeutic Range: INR 2 to 3 (Target INR of 2.5)Note: For patients treated with VKA drugs, such as warfarin, the [place] [employer] 2012 Guideline recommends [...] al. Chest 2012, 141:7S-47SCaitie RA, et al. [facility] 2017, 70: 252-289 Performed By: #### 3 4528-0, 20352-0 ####[facility] LABIA [id number] [place] [id number] [place] PT Coag (PPP) [Time] 11.9 s Normal 9.7-13.0 [facility] Comment on above: Order Comment: Aaliyah gibson Type: BLOOD SPECIMENOrdering Facility: [facility] Address: [address] [place] [address] Performed By: #### 3 4528-0, 77051-1 ####[facility] LABIA [id number] [address] [place] PTT, ANTICOAGULANT THERAPYon 09-23-2021 aPTT Coag (PPP) [Time] s High 23.0-32.4 [facility] Comment on above: Order Comment: Speci men Type: BLOOD SPECIMENOrdering Facility: [facility] Address: [address] [place] [address] Result Comment: Samp le checked for clot.Result rechecked. Performed By: #### P TTAC ####[facility] [id number] [address] [place] aPTT Coag (PPP) [Time] s High 23.0-32.4 [facility] Comment on above: Order Comment: Speci men Type: BLOOD SPECIMENOrdering Facility: [facility] Address: [address] [place] [address] Result Comment: Samp le checked for clot.Result rechecked. Performed By: #### P TTAC ####[facility] [id number] [address] [facility] aPTT Coag (PPP) [Time] 73.9 s High 23.0-32.4 [facility] Comment on above: Order Comment: Speci men Type: BLOOD SPECIMENOrdering Facility: [facility] Address: [address] [place] [address] Performed By: #### P TTAC, 75290-3 ####[facility] [id number] [place] [address] [place] SARS-CoV-2 RNA Resp Ql SANDOVAL+p robeon 09-23-2021 SARS-CoV-2 (COVID-19) RNA SANDOVAL+probe Ql (Resp) COVID 19 RESULT: SARS-CoV-2 (Agent of COVID-19) Not Detected by RT-PCR or equivalent method. This test has been authorized by FDA under an Emergency Use Authorization (EUA). [facility] Comment on above: Performed By: #### 9 4500-6 ####[facility] LABCLIA [id number] [place] TSH SerPl-aCncon 09-23-2021 TSH Qn 1.870 m[IU]/L Normal 0.270-4.20 [facility] Comment on above: Order Comment: Speci men Type: BLOOD SPECIMENOrdering Facility: [facility] Address: [address] [place] [address] Performed By: #### 3 016-3, 79572-4, 74948-6, 52388-1 ####[facility] [id number] [address] [place] aPTT PPPon 09-23-2021 aPTT Coag (PPP) [Time] 25.4 s Normal 23.0-32.4 [facility] Comment on above: Order Comment: Speci men Type: BLOOD SPECIMENOrdering Facility: [facility] Address: [address] [place] [address] Performed By: #### 3 4528-0, 26481-3 ####[facility] [id number] [address] [place] CNOVon 09-22-2021 CNOV [facility] HISTORY PHYSICALon HISTORY PHYSICAL [facility] NURSING PROGon 09-22-2021 NURSING PROG [facility] XR CHEST 1V FRONTAL PORTon 0 09-22-2021 XR CHEST 1V FRONTAL PORT [facility] CNPNon 09-19-2021 CNPN [facility] CNPNon 09-16-2021 CNPN [facility] CBC W Auto Differential pane l (Bld)on 09-11-2021 Basophils (Bld) [#/Vol] 10*3/uL Normal <0.11 [facility] Comment on above: Order Comment: Speci men Type: BLOOD SPECIMENOrdering Facility: [facility] Address: [address] [place], [place] [id number] Performed By: #### 5 7021-8 ####[facility] [id number] [place] [address] STATES [facility] Basophils/100 WBC (Bld) 0.3 % Normal [facility] [facility] Comment on above: Order Comment: Speci men Type: BLOOD SPECIMENOrdering Facility: [facility] Address: [address] [place], [place] [address] Performed By: #### 5 7021-8 ####[facility] [id number] [place] [address] [place] Differential cell count method Nom (Bld) Auto [facility] Comment on above: Order Comment: Speci men Type: BLOOD SPECIMENOrdering Facility: [facility] Address: [address] [place], [place] [address] Performed By: #### 5 7021-8 ####[facility] [id number] [place] [address] [place] Eosinophils (Bld) [#/Vol] 0.03 10*3/uL Normal <0.46 [facility] Comment on above: Order Comment: Speci men Type: BLOOD SPECIMENOrdering Facility: [facility] Address: [address] [place], [place] [address] Performed By: #### 5 7021-8 ####[facility] [id number] [place] [address] [facility] Eosinophils/100 WBC (Bld) 0.5 % [facility] Comment on above: Order Comment: Speci men Type: BLOOD SPECIMENOrdering Facility: [facility] Address: [address] [place], [place] [address] Performed By: #### 5 7021-8 ####[facility] [id number] [place] [address] [place] Erythrocyte distribution width (RBC) [Ratio] 15.5 % High 11.5-15.0 [facility] Comment on above: Order Comment: Speci men Type: BLOOD SPECIMENOrdering Facility: [facility] Address: [address] [place] [address] Performed By: #### 5 7021-8 ####[facility] [id number] [place] [address] [facility] Hematocrit (Bld) [Volume fraction] 42.0 % Normal 39.0-51.0 [facility] Comment on above: Order Comment: Speci men Type: BLOOD SPECIMENOrdering Facility: [facility] Address: [address] [place] [address] Performed By: #### 5 7021-8 ####[facility] [id number] [place] [address] [facility] Hemoglobin (Bld) [Mass/Vol] 13.5 g/dL Normal 13.0-17.0 [facility] Comment on above: Order Comment: Speci men Type: BLOOD SPECIMENOrdering Facility: [facility] Address: [address] [place], [place] [address] Performed By: #### 5 7021-8 ####[facility] [id number] [place] [address] [facility] IMMATURE GRAN % 0.3 % [facility] Comment on above: Order Comment: Speci men Type: BLOOD SPECIMENOrdering Facility: [facility] Address: [address] [place], [place] [address] Performed By: #### 5 7021-8 ####[facility] [id number] [place] [address] [facility] IMMATURE GRAN ABS <0.03 Normal <0.10 [facility] Comment on above: Order Comment: Speci men Type: BLOOD SPECIMENOrdering Facility: [facility] Address: [address] [place] [address] Performed By: #### 5 7021-8 ####[facility] [id number] [address] Lymphocytes (Bld) [#/Vol] 1.12 10*3/uL Normal 1.00-4.00 [facility] Comment on above: Order Comment: Speci men Type: BLOOD SPECIMENOrdering Facility: [facility] Address: [address] [place], [place] [address] Performed By: #### 5 7021-8 ####[facility] [id number] [address] OF [facility] Lymphocytes/100 WBC (Bld) 17.2 % [facility] Comment on above: Order Comment: Speci men Type: BLOOD SPECIMENOrdering Facility: [facility] Address: [address] [place], [place] [address] Performed By: #### 5 7021-8 ####[facility] [id number] [address] [place] MCH (RBC) [Entitic mass] 29.6 pg Normal 26.0-34.0 [facility] Comment on above: Order Comment: Speci men Type: BLOOD SPECIMENOrdering Facility: [facility] Address: [address] [place], [place] [address] Performed By: #### 5 7021-8 ####[facility] [id number] [address] [place] MCHC (RBC) [Mass/Vol] 32.1 g/dL Normal 30.5-36.0 [facility] Comment on above: Order Comment: Speci men Type: BLOOD SPECIMENOrdering Facility: [facility] Address: [address] [place], [place] [address] Performed By: #### 5 7021-8 ####[facility] [id number] [place] [address] [place] MCV (RBC) [Entitic vol] 92.1 fL Normal 80.0-100.0 [facility] Comment on above: Order Comment: Speci men Type: BLOOD SPECIMENOrdering Facility: [facility] Address: [address] [place] [address] Performed By: #### 5 7021-8 ####[facility] [id number] [place] [address] [place] Monocytes (Bld) [#/Vol] 0.53 10*3/uL Normal <0.87 [facility] Comment on above: Order Comment: Speci men Type: BLOOD SPECIMENOrdering Facility: [facility] Address: [address] [place] [address] Performed By: #### 5 7021-8 ####[facility] [id number] [place] [address] [place] Monocytes/100 WBC (Bld) 8.1 % [facility] Comment on above: Order Comment: Speci men Type: BLOOD SPECIMENOrdering Facility: [facility] Address: [address] [place] [address] Performed By: #### 5 7021-8 ####[facility] [id number] [place] [address] [place] Neutrophils (Bld) [#/Vol] 4.81 10*3/uL Normal 1.45-7.50 [facility] Comment on above: Order Comment: Speci men Type: BLOOD SPECIMENOrdering Facility: [facility] Address: [address] [place] [address] Performed By: #### 5 7021-8 ####[facility] [id number] [place] [address] [place] Neutrophils/100 WBC (Bld) 73.6 % [facility] Comment on above: Order Comment: Speci men Type: BLOOD SPECIMENOrdering Facility: [facility] Address: [address] [place], [place] [address] Performed By: #### 5 7021-8 ####[facility] [id number] [place] [address] [place] Nucleated RBC (Bld) [#/Vol] 10*3/uL Normal <0.01 [facility] Comment on above: Order Comment: Speci men Type: BLOOD SPECIMENOrdering Facility: [facility] Address: [address] [place], [place] [address] Performed By: #### 5 7021-8 ####[facility] [id number] [place] [address] [place] Nucleated RBC/100 WBC (Bld) [Ratio] 0.0 /100 WBC [facility] Comment on above: Order Comment: Speci men Type: BLOOD SPECIMENOrdering Facility: [facility] Address: [address] [place], [place] [address] Performed By: #### 5 7021-8 ####[facility] [id number] [place] [address] [place] Platelet mean volume (Bld) [Entitic vol] 9.7 fL Normal 9.0-12.7 [facility] Comment on above: Order Comment: Speci men Type: BLOOD SPECIMENOrdering Facility: [facility] Address: [address] [place] [phone] Performed By: #### 5 7021-8 ####[facility] [id number] [place] [address] [place] Platelets (Bld) [#/Vol] 267 10*3/uL Normal 150-400 [facility] Comment on above: Order Comment: Speci men Type: BLOOD SPECIMENOrdering Facility: [facility] Address: [address] [place], [place] [address] Performed By: #### 5 7021-8 ####[facility] [id number] [place] [address] [place] RBC (Bld) [#/Vol] 4.56 10*6/uL Normal 4.20-6.00 [facility] Comment on above: Order Comment: Speci men Type: BLOOD SPECIMENOrdering Facility: [facility] Address: [address] [place], [place] [address] Performed By: #### 5 7021-8 ####[facility] [id number] [place] [address] WBC (Bld) [#/Vol] 6.53 10*3/uL Normal 3.70-11.00 [facility] Comment on above: Order Comment: Speci men Type: BLOOD SPECIMENOrdering Facility: [facility] Address: [address] [place], [place] [address] Performed By: #### 5 7021-8 ####[facility] [id number] [place] [address] [place] CNNURSEon 09-11-2021 CNNURSE [facility] CNOVSPon 09-11-2021 CNOVSP [facility] Comprehensive metabolic 2000 panelon 09-11-2021 Albumin [Mass/Vol] 4.1 g/dL Normal 3.9-4.9 [facility] Comment on above: Order Comment: Speci men Type: BLOOD SPECIMENOrdering Facility: [facility] Address: [address] [place], [place] [address] Performed By: #### 3 084-1, 56654-1, 49002-1 ####[facility] [id number] [place] [address] [place] ALP [Catalytic activity/Vol] 80 U/L Normal 38-113 [facility] Comment on above: Order Comment: Speci men Type: BLOOD SPECIMENOrdering Facility: [facility] Address: [address] [place] [address] Performed By: #### 3 084-1, 83742-3, ####[facility] [id number] [place] [address] [place] ALT [Catalytic activity/Vol] 82 U/L High 10-54 [facility] Comment on above: Order Comment: Speci men Type: BLOOD SPECIMENOrdering Facility: [facility] Address: [address] [place] [address] Performed By: #### 3 084-1, 94361-3, ####[facility] [id number] [place] [address] [place] Anion gap [Moles/Vol] 12 mmol/L Normal 9-18 [facility] Comment on above: Order Comment: Speci men Type: BLOOD SPECIMENOrdering Facility: [facility] Address: [address] [place] [address] Performed By: #### 3 084-1, 33939-5, ####[facility] [id number] [place] [address] [place] AST [Catalytic activity/Vol] 58 U/L High 14-40 [facility] Comment on above: Order Comment: Speci men Type: BLOOD SPECIMENOrdering Facility: [facility] Address: [address] [place] [address] Performed By: #### 3 084-1, 42966-2, ####[facility] [id number] [place] [address] [place] Bilirubin [Mass/Vol] 0.5 mg/dL Normal 0.2-1.3 [facility] Comment on above: Order Comment: Speci men Type: BLOOD SPECIMENOrdering Facility: [facility] Address: [address] [place], [place] [address] Performed By: #### 3 084-1, 58440-7, 01819-3 ####[facility] [id number] [place] [address] [place] Calcium [Mass/Vol] 9.4 mg/dL Normal 8.5-10.2 [facility] Comment on above: Order Comment: Speci men Type: BLOOD SPECIMENOrdering Facility: [facility] Address: [address] [place] [address] Performed By: #### 3 084-1, 28407-5, ####[facility] [id number] [place] [address] [place] Chloride [Moles/Vol] 103 mmol/L Normal 97-105 [facility] Comment on above: Order Comment: Speci men Type: BLOOD SPECIMENOrdering Facility: [facility] Address: [address] [place] [address] Performed By: #### 3 084-1, 88776-5, ####[facility] [id number] [place] [address] [place] CO2 [Moles/Vol] 29 mmol/L Normal 22-30 [facility] Comment on above: Order Comment: Speci men Type: BLOOD SPECIMENOrdering Facility: [facility] Address: [address] [place], [place] [address] Performed By: #### 3 084-1, 92002-7, 47951-2 ####[facility] [id number] [place] [address] [place] Creatinine [Mass/Vol] 1.18 mg/dL Normal 0.73-1.22 [facility] Comment on above: Order Comment: Speci men Type: BLOOD SPECIMENOrdering Facility: [facility] Address: [address] [place], [place] [address] Performed By: #### 3 084-1, 97177-7, ####[facility] [id number] [address] [place] ESTIMATED GLOMERULAR FILTRATION RATE 72 mL/min/1.73m??? Normal >=60 [facility] Comment on above: Order Comment: Aaliyah gibson Type: BLOOD SPECIMENOrdering Facility: [facility] Address: [address] [place] [address] Result Comment: Laurita mated Glomerular Filtration Rate [...] actual GFR. Performed By: #### 3 084-1, 80117-5, ####[facility] [id number] [address] [place] Glucose [Mass/Vol] 130 mg/dL High 74-99 [facility] Comment on above: Order Comment: Aaliyah gibson Type: BLOOD SPECIMENOrdering Facility: [facility] Address: [address] [place] [address] Result Comment: The [place] [employer] (ADA) provides guidance for cutoff [...] Standards of Medical Care in Diabetes 2016, [place] [employer]. Diabetes Care. 2016.39(Suppl 1). Performed By: #### 3 084-1, 04967-3, ####[facility] [id number] [place] [address] [place] Potassium [Moles/Vol] 3.3 mmol/L Low 3.7-5.1 [facility] Comment on above: Order Comment: Speci men Type: BLOOD SPECIMENOrdering Facility: [facility] Address: [address] [place], [place] [address] Performed By: #### 3 084-1, , ####[facility] [id number] [place] [address] [place] Protein [Mass/Vol] 6.9 g/dL Normal 6.3-8.0 [facility] Comment on above: Order Comment: Speci men Type: BLOOD SPECIMENOrdering Facility: [facility] Address: [address] [place], [place] [address] Performed By: #### 3 084-1, , ####[facility] [id number] [place] [address] [place] Sodium [Moles/Vol] 144 mmol/L Normal 136-144 [facility] Comment on above: Order Comment: Speci men Type: BLOOD SPECIMENOrdering Facility: [facility] Address: [address] [place] [address] Performed By: #### 3 084-1, , ####[facility] [id number] [place] [id number] [place] Urea nitrogen [Mass/Vol] 19 mg/dL Normal 9-24 [facility] Comment on above: Order Comment: Speci men Type: BLOOD SPECIMENOrdering Facility: [facility] Address: [address] [place] [address] Performed By: #### 3 084-1, , ####[facility] [id number] [place] [address] [place] LDH SerPl-cCncon 09-11-2021 LDH [Catalytic activity/Vol] 297 U/L High 135-225 [facility] Comment on above: Order Comment: Aaliyah gibson Type: BLOOD SPECIMENOrdering Facility: [facility] Address: [address] [place] [address] Performed By: #### 2 532-0 ####[facility] [id number] [place] [address] STATES [facility] Magnesium SerPl-mCncon 09-11 Magnesium [Mass/Vol] 2.1 mg/dL Normal 1.7-2.3 [facility] Comment on above: Order Comment: Aaliyah gibson Type: BLOOD SPECIMENOrdering Facility: [facility] Address: [address] [place] [address] Performed By: #### 3 084-1, 83500-2, 75662-2 ####[facility] [id number] [place] [address] PT panel Coag (PPP)on 2021 INR Coag (PPP) [Relative time] 1.1 {INR} Normal 0.9-1.3 [facility] Comment on above: Order Comment: Aaliyah gibson Type: BLOOD SPECIMENOrdering Facility: [facility] Address: [address] [place] [address] Result Comment: Constanza min K Antagonist (VKA) Therapeutic Range: INR 2 to 3 (Target INR of 2.5)Note: For patients treated with VKA drugs, such as warfarin, the [place] [employer] 2012 Guideline recommends [...] al. Chest 2012, 141:7S-47SNishimura RA, et al. [facility] 2017, 70: 252-289 Performed By: #### 3 4528-0, 90864-4 ####[facility] [id number] [place] [address] [place] PT Coag (PPP) [Time] 11.3 s Normal 9.7-13.0 [facility] Comment on above: Order Comment: Speci men Type: BLOOD SPECIMENOrdering Facility: [facility] Address: [address] [place] [address] Performed By: #### 3 4528-0, 63033-9 ####[facility] [id number] [place] [address] [place] Phosphate SerPl-mCncon 09-11 Phosphate [Mass/Vol] 3.5 mg/dL Normal 2.7-4.8 [facility] Comment on above: Order Comment: Speci men Type: BLOOD SPECIMENOrdering Facility: [facility] Address: [address] [place] [address] Performed By: #### 2 777-1 ####[facility] [id number] [place] [address] [place] Urate SerPl-mCncon 2 Urate [Mass/Vol] 9.2 mg/dL High 4.0-8.1 [facility] Comment on above: Order Comment: Speci men Type: BLOOD SPECIMENOrdering Facility: [facility] Address: [address] [place] [address] Performed By: #### 3 084-1, 70214-0, 53303-2 ####[facility] [id number] [place] [address] [place] aPTT PPPon 09-11-2021 aPTT Coag (PPP) [Time] 28.1 s Normal 23.0-32.4 [facility] Comment on above: Order Comment: Speci men Type: BLOOD SPECIMENOrdering Facility: [facility] Address: [address] [place] [address] Performed By: #### 3 4528-0, 52064-3 ####[facility] [id number] [place] [address] [place] CNPNon 09-05-2021 CNPN [facility] CBC panel Auto (Bld)on 09-04 Erythrocyte distribution width (RBC) [Ratio] 15.2 % High 11.5-15.0 [facility] Comment on above: Order Comment: Speci men Type: BLOOD SPECIMENOrdering Facility: [facility] Address: [address] [place] [address] Performed By: #### 5 8410-2 ####[facility] [id number] [address] [place] Hematocrit (Bld) [Volume fraction] 40.7 % Normal 39.0-51.0 [facility] Comment on above: Order Comment: Speci men Type: BLOOD SPECIMENOrdering Facility: [facility] Address: [address] [place], [place] [address] Performed By: #### 5 8410-2 ####[facility] [id number] [place] [address] [place] Hemoglobin (Bld) [Mass/Vol] 13.1 g/dL Normal 13.0-17.0 [facility] Comment on above: Order Comment: Speci men Type: BLOOD SPECIMENOrdering Facility: [facility] Address: [address] [place], [place] [address] Performed By: #### 5 8410-2 ####[facility] [id number] [address] [place] MCH (RBC) [Entitic mass] 29.5 pg Normal 26.0-34.0 [facility] Comment on above: Order Comment: Speci men Type: BLOOD SPECIMENOrdering Facility: [facility] Address: [address] [place] [address] Performed By: #### 5 8410-2 ####[facility] [id number] [address] [place] MCHC (RBC) [Mass/Vol] 32.2 g/dL Normal 30.5-36.0 [facility] Comment on above: Order Comment: Speci men Type: BLOOD SPECIMENOrdering Facility: [facility] Address: [address] [place] [address] Performed By: #### 5 8410-2 ####[facility] [id number] [address] [place] MCV (RBC) [Entitic vol] 91.7 fL Normal 80.0-100.0 [facility] Comment on above: Order Comment: Speci men Type: BLOOD SPECIMENOrdering Facility: [facility] Address: [address] [place] [address] Performed By: #### 5 8410-2 ####[facility]UN[facility] [id number] OF [place] Nucleated RBC (Bld) [#/Vol] 10*3/uL Normal <0.01 [facility] Comment on above: Order Comment: Speci men Type: BLOOD SPECIMENOrdering Facility: [facility] Address: [address] [place], [place] [address] Performed By: #### 5 8410-2 ####[facility]UN[facility] [id number] [address] [address] [place] Platelet mean volume (Bld) [Entitic vol] 10.1 fL Normal 9.0-12.7 [facility] Comment on above: Order Comment: Speci men Type: BLOOD SPECIMENOrdering Facility: [facility] Address: [address] [place] [phone] Performed By: #### 5 8410-2 ####[facility] LABCLIA [id number] [place] [address] [place] Platelets (Bld) [#/Vol] 214 10*3/uL Normal 150-400 [facility] Comment on above: Order Comment: Speci men Type: BLOOD SPECIMENOrdering Facility: [facility] Address: [address] [place], [place] [address] Performed By: #### 5 8410-2 ####[facility] LABCLIA [id number] [place] [address] [place] RBC (Bld) [#/Vol] 4.44 10*6/uL Normal 4.20-6.00 [facility] Comment on above: Order Comment: Speci men Type: BLOOD SPECIMENOrdering Facility: [facility] Address: [address] [place] [phone] Performed By: #### 5 8410-2 ####[facility] LABCLIA [id number] [place] [address] [place] WBC (Bld) [#/Vol] 6.02 10*3/uL Normal 3.70-11.00 [facility] Comment on above: Order Comment: Speci men Type: BLOOD SPECIMENOrdering Facility: [facility] Address: [address] [place] [phone] Performed By: #### 5 8410-2 ####[facility] LABCLIA [id number] [place] [address] [place] CNDSon 09-04-2021 CNDS [facility] CONSULTon 09-04-2021 CONSULT [facility] Comprehensive metabolic 2000 panelon 09-04-2021 Albumin [Mass/Vol] 3.5 g/dL Low 3.9-4.9 [facility] Comment on above: Order Comment: Speci men Type: BLOOD SPECIMENOrdering Facility: [facility] Address: [address] [place], [place] [address] Performed By: #### 2 4323-8, 52734-6 ####[facility] LABCLIA [id number] [place] [address] [place] ALP [Catalytic activity/Vol] 72 U/L Normal 38-113 [facility] Comment on above: Order Comment: Speci men Type: BLOOD SPECIMENOrdering Facility: [facility] Address: [address] [place] [address] Performed By: #### 2 4323-8, ####[facility] LABCLIA [id number] [place] [address] [place] ALT [Catalytic activity/Vol] 56 U/L High 10-54 [facility] Comment on above: Order Comment: Speci men Type: BLOOD SPECIMENOrdering Facility: [facility] Address: [address] [place], [place] [address] Performed By: #### 2 4323-8, 67891-8 ####[facility] LABCLIA [id number] [place] [address] [place] Anion gap [Moles/Vol] 10 mmol/L Normal 9-18 [facility] Comment on above: Order Comment: Speci men Type: BLOOD SPECIMENOrdering Facility: [facility] Address: [address] [place], [place] [address] Performed By: #### 2 4323-8, 43503-1 ####[facility] LABCLIA [id number] [place] [id number] [place] AST [Catalytic activity/Vol] 25 U/L Normal 14-40 [facility] Comment on above: Order Comment: Speci men Type: BLOOD SPECIMENOrdering Facility: [facility] Address: [address] [place] [address] Performed By: #### 2 4323-8, ####[facility] LABCLIA [id number] [place] [id number] [place] Bilirubin [Mass/Vol] 0.6 mg/dL Normal 0.2-1.3 [facility] Comment on above: Order Comment: Speci men Type: BLOOD SPECIMENOrdering Facility: [facility] Address: [address] [place], [place] [id number] Performed By: #### 2 4323-8, ####[facility] LABCLIA [id number] [place] [address] [place] Calcium [Mass/Vol] 9.3 mg/dL Normal 8.5-10.2 [facility] Comment on above: Order Comment: Speci men Type: BLOOD SPECIMENOrdering Facility: [facility] Address: [address] [place] [address] Performed By: #### 2 4323-8, ####[facility] LABCLIA [id number] [place] [address] [place] Chloride [Moles/Vol] 99 mmol/L Normal 97-105 [facility] Comment on above: Order Comment: Speci men Type: BLOOD SPECIMENOrdering Facility: [facility] [facility] Address: [address] [place] [address] Performed By: #### 2 4323-8, ####[facility] LABCLIA [id number] [place] [id number] [place] CO2 [Moles/Vol] 30 mmol/L Normal 22-30 [facility] Comment on above: Order Comment: Speci men Type: BLOOD SPECIMENOrdering Facility: [facility] Address: [address] [place], [place] [address] Performed By: #### 2 4323-8, ####[facility] [id number] [address] STATES OF [facility] Creatinine [Mass/Vol] 1.03 mg/dL Normal 0.73-1.22 [facility] Comment on above: Order Comment: Aaliyah gibson Type: BLOOD SPECIMENOrdering Facility: [facility] Address: [address] [place] [address] Performed By: #### 2 4323-8, ####[facility] [id number] [address] STATES OF [facility] ESTIMATED GLOMERULAR FILTRATION RATE 85 mL/min/1.73m??? Normal >=60 [facility] Comment on above: Order Comment: Aaliyah gibson Type: BLOOD SPECIMENOrdering Facility: [facility] Address: [address] [place] [address] Result Comment: Laurita mated Glomerular Filtration Rate [...] actual GFR. Performed By: #### 2 4323-8, ####[facility] [id number] [place] [address] [place] Glucose [Mass/Vol] 192 mg/dL High 74-99 [facility] Comment on above: Order Comment: Aaliyah gibson Type: BLOOD SPECIMENOrdering Facility: [facility] Address: [address] [place] [address] Result Comment: The [place] [employer] (ADA) provides guidance for cutoff [...] Standards of Medical Care in Diabetes 2016, [place] [employer]. Diabetes Care. 2016.39(Suppl 1). Performed By: #### 2 4322-10, ####[facility] LABCLIA [id number] [place] [address] [place] Potassium [Moles/Vol] 3.2 mmol/L Low 3.7-5.1 [facility] Comment on above: Order Comment: Speci men Type: BLOOD SPECIMENOrdering Facility: [facility] Address: [address] [place] [address] Performed By: #### 2 4322-10, ####[facility] LABCLIA [id number] [place] [address] [place] Protein [Mass/Vol] 6.6 g/dL Normal 6.3-8.0 [facility] Comment on above: Order Comment: Speci men Type: BLOOD SPECIMENOrdering Facility: [facility] Address: [address] [place], [place] [address] Performed By: #### 2 4322-10, ####[facility] LABCLIA [id number] [facility] [place] [address] [place] Sodium [Moles/Vol] 139 mmol/L Normal 136-144 [facility] Comment on above: Order Comment: Speci men Type: BLOOD SPECIMENOrdering Facility: [facility] Address: [address] [place] [id number] Performed By: #### 2 43205-13, ####[facility] LABCLIA [id number] [place] [address] [place] Urea nitrogen [Mass/Vol] 15 mg/dL Normal 9-24 [facility] Comment on above: Order Comment: Speci men Type: BLOOD SPECIMENOrdering Facility: [facility] Address: [address] [place] [address] Performed By: #### 2 4323-8, 68154-9 ####[facility] LABCLIA [id number] [place] [address] [place] Magnesium SerPl-mCncon 09-04 Magnesium [Mass/Vol] 2.2 mg/dL Normal 1.7-2.3 [facility] Comment on above: Order Comment: Speci men Type: BLOOD SPECIMENOrdering Facility: [facility] Address: [address] [place] [address] Performed By: #### 2 4323-8, 42175-6 ####[facility] LABCLIA [id number] [place] [address] [place] PT EDon 09-04-2021 PT ED [facility] CASE MANAGEMon 09-03-2021 CASE MANAGEM [facility] CBC panel Auto (Bld)on 09-03 Erythrocyte distribution width (RBC) [Ratio] 15.4 % High 11.5-15.0 [facility] Comment on above: Order Comment: Speci men Type: BLOOD SPECIMENOrdering Facility: [facility] Address: [address] [place], [place] [address] Performed By: #### 5 8410-2 ####[facility] LABCLIA [id number] [place] [address] [place] Hematocrit (Bld) [Volume fraction] 43.8 % Normal 39.0-51.0 [facility] Comment on above: Order Comment: Speci men Type: BLOOD SPECIMENOrdering Facility: [facility] Address: [address] [place], [place] [address] Performed By: #### 5 8410-2 ####[facility] [id number] [place] [address] [place] Hemoglobin (Bld) [Mass/Vol] 13.9 g/dL Normal 13.0-17.0 [facility] Comment on above: Order Comment: Speci men Type: BLOOD SPECIMENOrdering Facility: [facility] Address: [address] [place], [place] [address] Performed By: #### 5 8410-2 ####[facility] [id number] [place] [address] [place] MCH (RBC) [Entitic mass] 29.6 pg Normal 26.0-34.0 [facility] Comment on above: Order Comment: Speci men Type: BLOOD SPECIMENOrdering Facility: [facility] Address: [address] [place] [address] Performed By: #### 5 8410-2 ####[facility] [id number] [address] [place] MCHC (RBC) [Mass/Vol] 31.7 g/dL Normal 30.5-36.0 [facility] Comment on above: Order Comment: Speci men Type: BLOOD SPECIMENOrdering Facility: [facility] Address: [address] [place] [address] Performed By: #### 5 8410-2 ####[facility] [id number] [address] [place] MCV (RBC) [Entitic vol] 93.2 fL Normal 80.0-100.0 [facility] Comment on above: Order Comment: Speci men Type: BLOOD SPECIMENOrdering Facility: [facility] Address: [address] [place] [address] Performed By: #### 5 8410-2 ####[facility] [id number] [place] [id number] [place] Nucleated RBC (Bld) [#/Vol] 10*3/uL Normal <0.01 [facility] Comment on above: Order Comment: Speci men Type: BLOOD SPECIMENOrdering Facility: [facility] Address: [address] [place] [address] Performed By: #### 5 8410-2 ####[facility] LABCLIA [id number] [place] [address] [place] Platelet mean volume (Bld) [Entitic vol] 9.9 fL Normal 9.0-12.7 [facility] Comment on above: Order Comment: Speci men Type: BLOOD SPECIMENOrdering Facility: [facility] Address: [address] [place] [address] Performed By: #### 5 8410-2 ####[facility] LABCLIA [id number] [place] [address] [place] Platelets (Bld) [#/Vol] 212 10*3/uL Normal 150-400 [facility] Comment on above: Order Comment: Speci men Type: BLOOD SPECIMENOrdering Facility: [facility] Address: [address] [place], [place] [address] Performed By: #### 5 8410-2 ####[facility] LABCLIA [id number] [place] [address] [place] RBC (Bld) [#/Vol] 4.70 10*6/uL Normal 4.20-6.00 [facility] Comment on above: Order Comment: Speci men Type: BLOOD SPECIMENOrdering Facility: [facility] Address: [address] [place], [place] [address] Performed By: #### 5 8410-2 ####[facility] LABCLIA [id number] [place] [address] [place] WBC (Bld) [#/Vol] 5.51 10*3/uL Normal 3.70-11.00 [facility] Comment on above: Order Comment: Speci men Type: BLOOD SPECIMENOrdering Facility: [facility] Address: [address] [place] [address] Performed By: #### 5 8410-2 ####[facility] LABCLIA [id number] [place] [address] [place] Comprehensive metabolic 2000 panelon 09-03-2021 Albumin [Mass/Vol] 3.7 g/dL Low 3.9-4.9 [facility] Comment on above: Order Comment: Speci men Type: BLOOD SPECIMENOrdering Facility: [facility] Address: [address] [place] [address] Performed By: #### 2 4323-8, 00163-6, ####[facility] LABCLIA [id number] [place] [address] [place] ALP [Catalytic activity/Vol] 83 U/L Normal 38-113 [facility] Comment on above: Order Comment: Speci men Type: BLOOD SPECIMENOrdering Facility: [facility] Address: [address] [place] [address] Performed By: #### 2 4323-8, 56661-9, ####[facility] LABCLIA [id number] [address] [place] ALT [Catalytic activity/Vol] 65 U/L High 10-54 [facility] Comment on above: Order Comment: Speci men Type: BLOOD SPECIMENOrdering Facility: [facility] Address: [address] [place], [place] [address] Performed By: #### 2 4323-8, 91793-0, ####[facility] LABCLIA [id number] [place] [id number] [place] Anion gap [Moles/Vol] 9 mmol/L Normal 9-18 [facility] Comment on above: Order Comment: Speci men Type: BLOOD SPECIMENOrdering Facility: [facility] Address: [address] [place], [place] [address] Performed By: #### 2 4323-8, 18668-5, ####[facility] LABCLIA [id number] [place] [address] [place] AST [Catalytic activity/Vol] 35 U/L Normal 14-40 [facility] Comment on above: Order Comment: Speci men Type: BLOOD SPECIMENOrdering Facility: [facility] Address: [address] [place] [address] Performed By: #### 2 4323-8, 53538-5, ####[facility] LABCLIA [id number] [place] [address] [place] Bilirubin [Mass/Vol] 0.6 mg/dL Normal 0.2-1.3 [facility] Comment on above: Order Comment: Speci men Type: BLOOD SPECIMENOrdering Facility: [facility] Address: [address] [place], [place] [address] Performed By: #### 2 4323-8, 44897-3, ####[facility] LABCLIA [id number] [place] [address] [place] Calcium [Mass/Vol] 9.3 mg/dL Normal 8.5-10.2 [facility] Comment on above: Order Comment: Speci men Type: BLOOD SPECIMENOrdering Facility: [facility] Address: [address] [place], [place] [address] Performed By: #### 2 4323-8, 10374-2, 34832-9 ####[facility] LABCLIA [id number] [place] [id number] [place] Chloride [Moles/Vol] 102 mmol/L Normal 97-105 [facility] Comment on above: Order Comment: Speci men Type: BLOOD SPECIMENOrdering Facility: [facility] Address: [address] [place], [place] [address] Performed By: #### 2 4323-8, 91248-9, ####[facility] LABCLIA [id number] [place] [id number] [place] CO2 [Moles/Vol] 32 mmol/L High 22-30 [facility] Comment on above: Order Comment: Speci men Type: BLOOD SPECIMENOrdering Facility: [facility] Address: [address] [place], [place] [address] Performed By: #### 2 4323-8, 92034-6, ####[facility] LABCLIA [id number] [place] [address] [place] Creatinine [Mass/Vol] 1.08 mg/dL Normal 0.73-1.22 [facility] Comment on above: Order Comment: Speci men Type: BLOOD SPECIMENOrdering Facility: [facility] Address: [address] [place], [place] [address] Performed By: #### 2 4323-8, 14231-4, ####[facility] LABIA [id number] [address] [place] ESTIMATED GLOMERULAR FILTRATION RATE 80 mL/min/1.73m??? Normal >=60 [facility] Comment on above: Order Comment: Speci men Type: BLOOD SPECIMENOrdering Facility: [facility] Address: [address] [place], [place] [phone] Result Comment: Laurita mated Glomerular Filtration Rate [...] actual GFR. Performed By: #### 2 4323-8, 16547-4, ####[facility] LABCLIA [id number] [address] [address] [place] Glucose [Mass/Vol] 98 mg/dL Normal 74-99 [facility] Comment on above: Order Comment: Speci men Type: BLOOD SPECIMENOrdering Facility: [facility] Address: [address] [place] [address] Result Comment: The [place] [employer] (ADA) provides guidance for cutoff [...] Standards of Medical Care in Diabetes 2016, [place] [employer]. Diabetes Care. 2016.39(Suppl 1). Performed By: #### 2 4323-8, 97869-4, ####[facility] LABIA [id number] [address] [address] [place] Potassium [Moles/Vol] 3.8 mmol/L Normal 3.7-5.1 [facility] Comment on above: Order Comment: Speci men Type: BLOOD SPECIMENOrdering Facility: [facility] Address: [address] [place] [address] Performed By: #### 2 4323-8, 13619-6, ####[facility] LABIA [id number] [address] [address] [place] Protein [Mass/Vol] 6.9 g/dL Normal 6.3-8.0 [facility] Comment on above: Order Comment: Speci men Type: BLOOD SPECIMENOrdering Facility: [facility] Address: [address] [place] Performed By: #### 2 4323-8, 71393-8, ####[facility] LABCLIA [id number] [place] [id number] [place] Sodium [Moles/Vol] 143 mmol/L Normal 136-144 [facility] Comment on above: Order Comment: Speci men Type: BLOOD SPECIMENOrdering Facility: [facility] Address: [address] [place] [address] Performed By: #### 2 4323-8, 95581-0, ####[facility] LABIA [id number] [place] [id number] [place] Urea nitrogen [Mass/Vol] 16 mg/dL Normal 9-24 [facility] Comment on above: Order Comment: Speci men Type: BLOOD SPECIMENOrdering Facility: [facility] Address: [address] [place] [address] Performed By: #### 2 4323-8, 10419-1, ####[facility] LABIA [id number] [place] [id number] [place] ED NOTEon 09-03-2021 ED NOTE HNO ID: [id number] Author: Cinthya Gimenez RN Service: Emergency Medicine Author Type: Registered Nurse Type: ED Notes Filed: 09/02/2021 10:46 PM Note Text: Report given to [place] LOPEZ [facility] Iron and Iron binding capaci ty panelon 09-03-2021 Iron [Mass/Vol] 42 ug/dL Normal 41-186 [facility] Comment on above: Order Comment: Speci men Type: BLOOD SPECIMENOrdering Facility: [facility] Address: [address] [place] [address] Performed By: #### 2 4323-8, 41977-5, ####[facility] LABIA [id number] [place] [id number] [place] Iron binding capacity [Mass/Vol] 261 ug/dL Normal 232-386 [facility] Comment on above: Order Comment: Speci men Type: BLOOD SPECIMENOrdering Facility: [facility] Address: [address] [place] [address] Performed By: #### 2 4323-8, 75575-1, 51074-9 ####[facility] LABCLIA [id number] [address] [facility] Iron/TIBC [Molar ratio] 16.1 % Normal 15.0-57.0 [facility] Comment on above: Order Comment: Speci men Type: BLOOD SPECIMENOrdering Facility: [facility] Address: [address] [place] [address] Performed By: #### 2 4323-8, 25738-1, 83333-8 ####[facility] LABIA [id number] [address] [place] Magnesium SerPl-mCncon 09-03 Magnesium [Mass/Vol] 2.4 mg/dL High 1.7-2.3 [facility] Comment on above: Order Comment: Speci men Type: BLOOD SPECIMENOrdering Facility: [facility] Address: [address] [place] [address] Performed By: #### 2 4323-8, 55295-5, 44579-8 ####[facility] LABIA [id number] [address] [place] THERAPY NTon 09-03-2021 THERAPY NT [facility] THERAPY NT [facility] CBC W Auto Differential pane l (Bld)on 09-02-2021 Basophils (Bld) [#/Vol] 0.03 10*3/uL Normal <0.11 [facility] Comment on above: Order Comment: Speci men Type: BLOOD SPECIMENOrdering Facility: [facility] Address: [address] [place], [place] [address] Performed By: #### 5 7021-8 ####[facility] [id number] [address] [facility] Basophils/100 WBC (Bld) 0.5 % Normal [facility] Comment on above: Order Comment: Speci men Type: BLOOD SPECIMENOrdering Facility: [facility] Address: [address] [place] [address] Performed By: #### 5 7021-8 ####[facility] [id number] [place] [address] [place] Differential cell count method Nom (Bld) Auto [facility] Comment on above: Order Comment: Speci men Type: BLOOD SPECIMENOrdering Facility: [facility] Address: [address] [place] [address] Performed By: #### 5 7021-8 ####[facility] [id number] [place] [address] [place] Eosinophils (Bld) [#/Vol] 10*3/uL Normal <0.46 [facility] Comment on above: Order Comment: Speci men Type: BLOOD SPECIMENOrdering Facility: [facility] Address: [address] [place] [address] Performed By: #### 5 7021-8 ####[facility] [id number] [place] [address] [facility] Eosinophils/100 WBC (Bld) 0.3 % [facility] Comment on above: Order Comment: Speci men Type: BLOOD SPECIMENOrdering Facility: [facility] Address: [address] [place], [place] [address] Performed By: #### 5 7021-8 ####[facility] [id number] [place] [address] [place] Erythrocyte distribution width (RBC) [Ratio] 15.2 % High 11.5-15.0 [facility] Comment on above: Order Comment: Speci men Type: BLOOD SPECIMENOrdering Facility: [facility] Address: [address] [place], [place] [address] Performed By: #### 5 7021-8 ####[facility] [id number] [address] [facility] Hematocrit (Bld) [Volume fraction] 40.8 % Normal 39.0-51.0 [facility] Comment on above: Order Comment: Speci men Type: BLOOD SPECIMENOrdering Facility: [facility] Address: [address] [place] [address] Performed By: #### 5 7021-8 ####[facility] [id number] [place] [address] [facility] Hemoglobin (Bld) [Mass/Vol] 13.5 g/dL Normal 13.0-17.0 [facility] Comment on above: Order Comment: Speci men Type: BLOOD SPECIMENOrdering Facility: [facility] Address: [address] [place], [place] [address] Performed By: #### 5 7021-8 ####[facility] [id number] [place] [address] [facility] IMMATURE GRAN % 0.3 % [facility] Comment on above: Order Comment: Speci men Type: BLOOD SPECIMENOrdering Facility: [facility] Address: [address] [place], [place] [address] Performed By: #### 5 7021-8 ####[facility] [id number] [place] [address] IMMATURE GRAN ABS <0.03 Normal <0.10 [facility] Comment on above: Order Comment: Speci men Type: BLOOD SPECIMENOrdering Facility: [facility] Address: [address] [place], [place] [address] Performed By: #### 5 7021-8 ####[facility] [id number] [place] [address] [place] Lymphocytes (Bld) [#/Vol] 1.42 10*3/uL Normal 1.00-4.00 [facility] Comment on above: Order Comment: Speci men Type: BLOOD SPECIMENOrdering Facility: [facility] Address: [address] [place] [address] Performed By: #### 5 7021-8 ####[facility] [id number] [address] STATES OF [facility] Lymphocytes/100 WBC (Bld) 21.7 % [facility] Comment on above: Order Comment: Speci men Type: BLOOD SPECIMENOrdering Facility: [facility] Address: [address] [place] [address] Performed By: #### 5 7021-8 ####[facility] [id number] [address] [place] MCH (RBC) [Entitic mass] 29.8 pg Normal 26.0-34.0 [facility] Comment on above: Order Comment: Speci men Type: BLOOD SPECIMENOrdering Facility: [facility] Address: [address] [place] [address] Performed By: #### 5 7021-8 ####[facility] [id number] [address] STATES [facility] MCHC (RBC) [Mass/Vol] 33.1 g/dL Normal 30.5-36.0 [facility] Comment on above: Order Comment: Speci men Type: BLOOD SPECIMENOrdering Facility: [facility] Address: [address] [place] [address] Performed By: #### 5 7021-8 ####[facility] [id number] [address] [place] [address] [place] MCV (RBC) [Entitic vol] 90.1 fL Normal 80.0-100.0 [facility] Comment on above: Order Comment: Speci men Type: BLOOD SPECIMENOrdering Facility: [facility] Address: [address] [place], [place] [address] Performed By: #### 5 7021-8 ####[facility] [id number] [place] [address] [place] Monocytes (Bld) [#/Vol] 0.42 10*3/uL Normal <0.87 [facility] Comment on above: Order Comment: Speci men Type: BLOOD SPECIMENOrdering Facility: [facility] Address: [address] [place] [address] Performed By: #### 5 7021-8 ####[facility] [id number] [address] [place] Monocytes/100 WBC (Bld) 6.4 % Normal [facility] Comment on above: Order Comment: Speci men Type: BLOOD SPECIMENOrdering Facility: [facility] Address: [address] [place], [place] [address] Performed By: #### 5 7021-8 ####[facility] [id number] [place] [address] [place] Neutrophils (Bld) [#/Vol] 4.62 10*3/uL Normal 1.45-7.50 [facility] Comment on above: Order Comment: Speci men Type: BLOOD SPECIMENOrdering Facility: [facility] Address: [address] [place], [place] [address] Performed By: #### 5 7021-8 ####[facility] [id number] [place] [address] [place] Neutrophils/100 WBC (Bld) 70.8 % [facility] Comment on above: Order Comment: Speci men Type: BLOOD SPECIMENOrdering Facility: [facility] Address: [address] [place], [place] [address] Performed By: #### 5 7021-8 ####[facility] [id number] [place] [address] Nucleated RBC (Bld) [#/Vol] 10*3/uL Normal <0.01 [facility] Comment on above: Order Comment: Speci men Type: BLOOD SPECIMENOrdering Facility: [facility] Address: [address] [place] [address] Performed By: #### 5 7021-8 ####[facility] [id number] [place] [address] [place] Nucleated RBC/100 WBC (Bld) [Ratio] 0.0 /100 WBC [facility] Comment on above: Order Comment: Speci men Type: BLOOD SPECIMENOrdering Facility: [facility] Address: [address] [place] [address] Performed By: #### 5 7021-8 ####[facility] [id number] [place] [address] [place] Platelet mean volume (Bld) [Entitic vol] 9.8 fL Normal 9.0-12.7 [facility] Comment on above: Order Comment: Speci men Type: BLOOD SPECIMENOrdering Facility: [facility] Address: [address] [place] [address] Performed By: #### 5 7021-8 ####[facility] [id number] [place] [address] [place] Platelets (Bld) [#/Vol] 206 10*3/uL Normal 150-400 [facility] Comment on above: Order Comment: Speci men Type: BLOOD SPECIMENOrdering Facility: [facility] Address: [address] [place] [address] Performed By: #### 5 7021-8 ####[facility] [id number] [place] [address] [place] RBC (Bld) [#/Vol] 4.53 10*6/uL Normal 4.20-6.00 [facility] Comment on above: Order Comment: Speci men Type: BLOOD SPECIMENOrdering Facility: [facility] Address: [address] [place], [place] [id number] Performed By: #### 5 7021-8 ####[facility] [id number] [place] [address] [place] WBC (Bld) [#/Vol] 6.53 10*3/uL Normal 3.70-11.00 [facility] Comment on above: Order Comment: Speci men Type: BLOOD SPECIMENOrdering Facility: [facility] Address: [address] MORNING [place] [address] Performed By: #### 5 7021-8 ####[facility] [id number] [place] [address] [place] CNNURSEon 09-02-2021 CNNURSE [facility] CNOVSPon 09-02-2021 CNOVSP [facility] CT CHEST W IVCON PEon 2021 CT CHEST W IVCON PE Normal [facility] Comprehensive metabolic 2000 panelon 09-02-2021 Albumin [Mass/Vol] 4.1 g/dL Normal 3.9-4.9 [facility] Comment on above: Order Comment: Speci men Type: BLOOD SPECIMENOrdering Facility: [facility] Address: [address] [place] [address] Performed By: #### 2 4323-8 ####[facility] [id number] [place] [address] [place] ALP [Catalytic activity/Vol] 82 U/L Normal 38-113 [facility] Comment on above: Order Comment: Speci men Type: BLOOD SPECIMENOrdering Facility: [facility] Address: [address] [place] [address] Performed By: #### 2 4323-8 ####[facility] [id number] [address] ALT [Catalytic activity/Vol] 79 U/L High 10-54 [facility] Comment on above: Order Comment: Speci men Type: BLOOD SPECIMENOrdering Facility: [facility] Address: [address] [place] [address] Performed By: #### 2 4323-8 ####[facility] [id number] [place] [address] [place] Anion gap [Moles/Vol] 10 mmol/L Normal 9-18 [facility] Comment on above: Order Comment: Speci men Type: BLOOD SPECIMENOrdering Facility: [facility] Address: [address] [place] [address] Performed By: #### 2 4323-8 ####[facility] [id number] [address] STATES [facility] AST [Catalytic activity/Vol] 50 U/L High 14-40 [facility] Comment on above: Order Comment: Speci men Type: BLOOD SPECIMENOrdering Facility: [facility] Address: [address] [place], [place] [address] Performed By: #### 2 4323-8 ####[facility] [id number] [place] [address] [place] Bilirubin [Mass/Vol] 1.0 mg/dL Normal 0.2-1.3 [facility] Comment on above: Order Comment: Speci men Type: BLOOD SPECIMENOrdering Facility: [facility] Address: [address] [place] [address] Performed By: #### 2 4323-8 ####[facility] [id number] [place] [address] [place] Calcium [Mass/Vol] 9.1 mg/dL Normal 8.5-10.2 [facility] Comment on above: Order Comment: Speci men Type: BLOOD SPECIMENOrdering Facility: [facility] Address: [address] [place] [address] Performed By: #### 2 4323-8 ####[facility] [id number] [place] [address] [place] Chloride [Moles/Vol] 107 mmol/L High 97-105 [facility] Comment on above: Order Comment: Speci men Type: BLOOD SPECIMENOrdering Facility: [facility] Address: [address] [place] [address] Performed By: #### 2 4323-8 ####[facility] [id number] [place] [address] [place] CO2 [Moles/Vol] 25 mmol/L Normal 22-30 [facility] Comment on above: Order Comment: Speci men Type: BLOOD SPECIMENOrdering Facility: [facility] Address: [address] [place], [place] [address] Performed By: #### 2 4323-8 ####[facility] [id number] [place] [address] [place] Creatinine [Mass/Vol] 1.07 mg/dL Normal 0.73-1.22 [facility] Comment on above: Order Comment: Speci men Type: BLOOD SPECIMENOrdering Facility: [facility] Address: [address] [place] [address] Performed By: #### 2 4323-8 ####[facility] [id number] [place] [address] [place] ESTIMATED GLOMERULAR FILTRATION RATE 81 mL/min/1.73m??? Normal >=60 [facility] Comment on above: Order Comment: Speci men Type: BLOOD SPECIMENOrdering Facility: [facility] Address: [address] Result Comment: Laurita mated Glomerular Filtration [...] actual GFR. Performed By: #### 2 4323-8 ####[facility] [id number] [place] [address] [place] Glucose [Mass/Vol] 127 mg/dL High 74-99 [facility] Comment on above: Order Comment: Aaliyah gibson Type: BLOOD SPECIMENOrdering Facility: [facility] Address: [address] [place] [address] Result Comment: The [place] Diabetes Association (ADA) provides guidance for cutoff [...] Standards of Medical Care in Diabetes 2016, [place] [employer]. Diabetes Care. 2016.39(Suppl 1). Performed By: #### 2 4323-8 ####[facility] [id number] [place] [address] [place] Potassium [Moles/Vol] 3.6 mmol/L Low 3.7-5.1 [facility] Comment on above: Order Comment: Aaliyah gibson Type: BLOOD SPECIMENOrdering Facility: [facility] Address: [address] Performed By: #### 2 4323-8 ####[facility] [id number] [place] [address] [place] Protein [Mass/Vol] 6.8 g/dL Normal 6.3-8.0 [facility] Comment on above: Order Comment: Speci men Type: BLOOD SPECIMENOrdering Facility: [facility] Address: [address] [place] [address] Performed By: #### 2 4323-8 ####[facility] [id number] [place] [address] [place] Sodium [Moles/Vol] 142 mmol/L Normal 136-144 [facility] Comment on above: Order Comment: Speci men Type: BLOOD SPECIMENOrdering Facility: [facility] Address: [address] [place] [address] Performed By: #### 2 4323-8 ####[facility] [id number] [address] STATES [facility] Urea nitrogen [Mass/Vol] 14 mg/dL Normal 9-24 [facility] Comment on above: Order Comment: Speci men Type: BLOOD SPECIMENOrdering Facility: [facility] Address: [address] [place] [address] Performed By: #### 2 4323-8 ####[facility] [id number] [place] [address] [place] D dimer FEU PPP-mCncon 09-02 Fibrin D-dimer FEU (PPP) [Mass/Vol] 1920 ng/mL FEU High <500 [facility] Comment on above: Order Comment: Speci men Type: BLOOD SPECIMENOrdering Facility: [facility] Address: [address] [place], [place] [address] Performed By: #### 4 8065-7 ####[facility] [id number] [address] [facility] ED NOTEon 09-02-2021 ED NOTE HNO ID: [id number] Author: Lisa Bright RN Service: ? Author Type: Registered Nurse Type: ED Notes Filed: 09/02/2021 7:02 PM Note Text: Bed: E12-21 Expected date: Expected time: Means of arrival: Comments: [facility] ED NOTE HNO ID: [id number] Author: Luma Sanford RN Service: Emergency Medicine Author Type: Registered Nurse Type: ED Notes Filed: 09/02/2021 6:36 PM Note Text: Still no staff assigned to patient, RN to Dr Fleming to hand picker pt at this time. [facility] ED PROV NOTEon 09-02-2021 ED PROV NOTE [facility] Ferritin SerPl-mCncon 2021 Ferritin [Mass/Vol] 332.0 ng/mL Normal 30.3-565.7 [facility] Comment on above: Order Comment: Speci men Type: BLOOD SPECIMENOrdering Facility: [facility] Address: [address] [place] [address] Performed By: #### 3 034-6, 2276-4 ####[facility] [id number] [address] OF [place] Fibrin D-dimer FEU (PPP) [Ma ss/Vol]on 09-02-2021 D DIMER AGE-RELATED CUTOFF 570 ng/mL FEU [facility] Comment on above: Order Comment: Speci men Type: BLOOD SPECIMENOrdering Facility: [facility] Address: [address] [place] [address] Performed By: #### 4 8065-7 ####[facility] [id number] [address] STATES OF [place] HIGH SENSITIVITY TROPONIN To n 09-02-2021 HIGH SENSITIVITY BEAU 33 ng/L High <12 [facility] Comment on above: Order Comment: Speci men Type: BLOOD SPECIMENOrdering Facility: [facility] Address: [address] [place] [address] Result Comment: When assessing risk for acute [...] MACE. Performed By: #### 5 5454-3, HSTNT ####[facility]CL[facility] [id number] [address] OF [facility] HIGH SENSITIVITY BEAU 33 ng/L High <12 [facility] Comment on above: Order Comment: Speci men Type: BLOOD SPECIMENOrdering Facility: [facility] Address: [address] [place] [address] Result Comment: When assessing risk for acute [...] day MACE. Performed By: #### H STNT ####[facility]CL[facility] [id number] [address] [place] HISTORY PHYSICALon HISTORY PHYSICAL [facility] HbA1c (Bld)on 09-02-2021 Average glucose Estimated from glycated hemoglobin (Bld) [Mass/Vol] 137 mg/dL [facility] Comment on above: Order Comment: Speci men Type: BLOOD SPECIMENOrdering Facility: [facility] Address: [address] [place] [address] Result Comment: eAG: (Estimated average glucose) is a calculated value from HgbA1c and is physician relations representative of the average blood glucose level in the last 2-3 month period. Performed By: #### 5 5454-3, HSTNT ####[facility]CL[facility] [id number] [place] [address] [place] HbA1c (Bld) [Mass fraction] 6.4 % High 4.3-5.6 [facility] Comment on above: Order Comment: Aaliyah gibson Type: BLOOD SPECIMENOrdering Facility: [facility] Address: [address] [place] [address] Result Comment: [place] Diabetes Association guidelines indicate that patients with HgbA1c in the range 5.7-6.4% are at increased risk for development of diabetes, and intervention by lifestyle modification may be beneficial. HgbA1c greater or equal to 6.5% is considered diagnostic of diabetes. Performed By: #### 5 5454-3, HSTNT ####[facility] [id number] [place] [address] [place] LDH SerPl-cCncon 09-02-2021 LDH [Catalytic activity/Vol] 336 U/L High 135-225 [facility] Comment on above: Order Comment: Speci paige Type: BLOOD SPECIMENOrdering Facility: [facility] Address: [address] [place] [address] Performed By: #### 2 532-0 ####[facility] [id number] [place] [address] [place] Magnesium SerPl-mCncon 09-02 Magnesium [Mass/Vol] 2.2 mg/dL Normal 1.7-2.3 [facility] Comment on above: Order Comment: Ronyi paige Type: BLOOD SPECIMENOrdering Facility: [facility] Address: [address] [place] [address] Performed By: #### 3 3762-6, 3016-3, 42318-9 ####[facility] [id number] [place] [address] [place] NT-proBNP SerPl-mCncon 09-02 Natriuretic peptide.B prohormone N-Terminal [Mass/Vol] 3442 pg/mL High <125 [facility] Comment on above: Order Comment: Aaliyah gibson Type: BLOOD SPECIMENOrdering Facility: [facility] Address: [address] [place] [address] Performed By: #### 3 3762-6, 3016-3, 88209-3 ####[facility]CL[facility] [id number] [address] [place] No Panel Informationon 09-02 [facility] PT panel Coag (PPP)on 2021 INR Coag (PPP) [Relative time] 1.1 {INR} Normal 0.9-1.3 [facility] Comment on above: Order Comment: Aaliyah gibson Type: BLOOD SPECIMENOrdering Facility: [facility] Address: [address] [place] [address] Result Comment: Constanza min K Antagonist (VKA) Therapeutic Range: INR 2 to 3 (Target INR of 2.5)Note: For patients treated with VKA drugs, such as warfarin, the [place] [employer] 2012 Guideline recommends [...] of 3).Lars JAMISON, et al. Chest 2012, 141:7S-47SNishimkhalida RA, et al. [facility] 2017, 70: 252-289 Performed By: #### 3 4528-0, 26296-6 ####[facility] LABCL[facility] [id number] [place] [address] [place] PT Coag (PPP) [Time] 12.0 s Normal 9.7-13.0 [facility] Comment on above: Order Comment: Speci men Type: BLOOD SPECIMENOrdering Facility: [facility] Address: [address] [place] [address] Performed By: #### 3 4528-0, 92428-0 ####[facility] [id number] [place] [address] [place] SARS-CoV-2 RNA Resp Ql SANDOVAL+p robeon 09-02-2021 SARS-CoV-2 (COVID-19) RNA SANDOVAL+probe Ql (Resp) COVID 19 RESULT: SARS-CoV-2 (Agent of COVID-19) Not Detected by RT-PCR or equivalent method. This test has been authorized by FDA under an Emergency Use Authorization (EUA). [facility] Comment on above: Performed By: #### 9 4500-6 ####[facility] [id number] [place] [address] [place] TSH SerPl-aCncon 09-02-2021 TSH Qn 1.460 m[IU]/L Normal 0.270-4.20 [facility] Comment on above: Order Comment: Speci men Type: BLOOD SPECIMENOrdering Facility: [facility] Address: [address] [place], [place] [address] Performed By: #### 3 3762-6, 3016-3, 07563-1 ####[facility] [id number] [place] [address] [place] Transferrin SerPl-mCncon Transferrin [Mass/Vol] 234 mg/dL Normal 200-360 [facility] Comment on above: Order Comment: Speci men Type: BLOOD SPECIMENOrdering Facility: [facility] Address: [address] [place], [place] [address] Performed By: #### 3 034-6, 2276-4 ####[facility] [id number] [place] [address] [place] XR CHEST 2V FRONTAL/LATon XR CHEST 2V FRONTAL/LAT Normal [facility] aPTT PPPon 09-02-2021 aPTT Coag (PPP) [Time] 28.7 s Normal 23.0-32.4 [facility] Comment on above: Order Comment: Speci men Type: BLOOD SPECIMENOrdering Facility: [facility] Address: [address] [place] [address] Performed By: #### 3 4528-0, 30422-9 ####[facility] [id number] [place] [address] [place] CNPNon 09-01-2021 CNPN [facility] CNNURSEon 08-27-2021 CNNURSE [facility] CBC W Auto Differential pane l (Bld)on 08-19-2021 Basophils (Bld) [#/Vol] 0.04 10*3/uL Normal <0.11 [facility] Comment on above: Order Comment: Speci men Type: BLOOD SPECIMENOrdering Facility: [facility] Address: [address] [place] [address] Performed By: #### 5 7021-8 ####[facility] [id number] [place] [address] [place] Basophils/100 WBC (Bld) 0.7 % Normal [facility] Comment on above: Order Comment: Speci men Type: BLOOD SPECIMENOrdering Facility: [facility] Address: [address] [place] [address] Performed By: #### 5 7021-8 ####[facility] [id number] [place] [address] [place] Differential cell count method Nom (Bld) Auto [facility] Comment on above: Order Comment: Speci men Type: BLOOD SPECIMENOrdering Facility: [facility] Address: [address] [place] [address] Performed By: #### 5 7021-8 ####[facility] [id number] [place] [address] [place] Eosinophils (Bld) [#/Vol] 0.15 10*3/uL Normal <0.46 [facility] Comment on above: Order Comment: Speci men Type: BLOOD SPECIMENOrdering Facility: [facility] Address: [address] [place] [address] Performed By: #### 5 7021-8 ####[facility] [id number] [place] [address] [place] Eosinophils/100 WBC (Bld) 2.5 % [facility] Comment on above: Order Comment: Speci men Type: BLOOD SPECIMENOrdering Facility: [facility] Address: [address] [place] [address] Performed By: #### 5 7021-8 ####[facility] [id number] [place] [address] Erythrocyte distribution width (RBC) [Ratio] 15.0 % Normal 11.5-15.0 [facility] Comment on above: Order Comment: Speci men Type: BLOOD SPECIMENOrdering Facility: [facility] Address: [address] [place] [address] Performed By: #### 5 7021-8 ####[facility] [id number] [place] [address] [place] Hematocrit (Bld) [Volume fraction] 49.1 % Normal 39.0-51.0 [facility] Comment on above: Order Comment: Speci men Type: BLOOD SPECIMENOrdering Facility: [facility] Address: [address] [place] [address] Performed By: #### 5 7021-8 ####[facility] [id number] [place] [address] [place] Hemoglobin (Bld) [Mass/Vol] 17.0 g/dL Normal 13.0-17.0 [facility] Comment on above: Order Comment: Speci men Type: BLOOD SPECIMENOrdering Facility: [facility] Address: [address] [place] [address] Performed By: #### 5 7021-8 ####[facility] [id number] [place] [address] [place] IMMATURE GRAN % 0.3 % [facility] Comment on above: Order Comment: Speci men Type: BLOOD SPECIMENOrdering Facility: [facility] Address: [address] [place] [address] Performed By: #### 5 7021-8 ####[facility] [id number] [place] [address] [facility] IMMATURE GRAN ABS <0.03 Normal <0.10 [facility] Comment on above: Order Comment: Speci men Type: BLOOD SPECIMENOrdering Facility: [facility] Address: [address] [place], [place] [address] Performed By: #### 5 7021-8 ####[facility] [id number] [place] [address] Lymphocytes (Bld) [#/Vol] 1.58 10*3/uL Normal 1.00-4.00 [facility] Comment on above: Order Comment: Speci men Type: BLOOD SPECIMENOrdering Facility: [facility] Address: [address] [place], [place] [address] Performed By: #### 5 7021-8 ####[facility] [id number] [place] [address] Lymphocytes/100 WBC (Bld) 26.2 % [facility] Comment on above: Order Comment: Speci men Type: BLOOD SPECIMENOrdering Facility: [facility] Address: [address] [place], [place] [address] Performed By: #### 5 7021-8 ####[facility] [id number] [address] MCH (RBC) [Entitic mass] 29.6 pg Normal 26.0-34.0 [facility] Comment on above: Order Comment: Speci men Type: BLOOD SPECIMENOrdering Facility: [facility] Address: [address] [place] [address] Performed By: #### 5 7021-8 ####[facility] [id number] [address] MCHC (RBC) [Mass/Vol] 34.6 g/dL Normal 30.5-36.0 [facility] Comment on above: Order Comment: Speci men Type: BLOOD SPECIMENOrdering Facility: [facility] Address: [address] [place] [address] Performed By: #### 5 7021-8 ####[facility] [id number] [place] [address] MCV (RBC) [Entitic vol] 85.5 fL Normal 80.0-100.0 [facility] Comment on above: Order Comment: Speci men Type: BLOOD SPECIMENOrdering Facility: [facility] Address: [address] [place] [address] Performed By: #### 5 7021-8 ####[facility] [id number] [address] Monocytes (Bld) [#/Vol] 0.49 10*3/uL Normal <0.87 [facility] Comment on above: Order Comment: Speci men Type: BLOOD SPECIMENOrdering Facility: [facility] Address: [address] [place] [address] Performed By: #### 5 7021-8 ####[facility] [id number] [address] [address] [place] Monocytes/100 WBC (Bld) 8.1 % Normal [facility] Comment on above: Order Comment: Speci men Type: BLOOD SPECIMENOrdering Facility: [facility] Address: [address] [place] [address] Performed By: #### 5 7021-8 ####[facility] [id number] [place] [address] [place] Neutrophils (Bld) [#/Vol] 3.74 10*3/uL Normal 1.45-7.50 [facility] Comment on above: Order Comment: Speci men Type: BLOOD SPECIMENOrdering Facility: [facility] Address: [address] [place] [address] Performed By: #### 5 7021-8 ####[facility] [id number] [place] [address] [place] Neutrophils/100 WBC (Bld) 62.2 % [facility] Comment on above: Order Comment: Speci men Type: BLOOD SPECIMENOrdering Facility: [facility] Address: [address] [place], [place] [address] Performed By: #### 5 7021-8 ####[facility] [id number] [place] [address] [place] Nucleated RBC (Bld) [#/Vol] 10*3/uL Normal <0.01 [facility] Comment on above: Order Comment: Speci men Type: BLOOD SPECIMENOrdering Facility: [facility] Address: [address] [place], [place] [address] Performed By: #### 5 7021-8 ####[facility] [id number] [place] [address] [place] Nucleated RBC/100 WBC (Bld) [Ratio] 0.0 /100 WBC [facility] Comment on above: Order Comment: Speci men Type: BLOOD SPECIMENOrdering Facility: [facility] Address: [address] [place], [place] [address] Performed By: #### 5 7021-8 ####[facility] [id number] [place] [address] Platelet mean volume (Bld) [Entitic vol] 10.4 fL Normal 9.0-12.7 [facility] Comment on above: Order Comment: Speci men Type: BLOOD SPECIMENOrdering Facility: [facility] Address: [address] [place], [place] [address] Performed By: #### 5 7021-8 ####[facility] [id number] [place] [address] [place] Platelets (Bld) [#/Vol] 298 10*3/uL Normal 150-400 [facility] Comment on above: Order Comment: Speci men Type: BLOOD SPECIMENOrdering Facility: [facility] Address: [address] [place], [place] [address] Performed By: #### 5 7021-8 ####[facility] [id number] [place] [address] [place] RBC (Bld) [#/Vol] 5.74 10*6/uL Normal 4.20-6.00 [facility] Comment on above: Order Comment: Speci men Type: BLOOD SPECIMENOrdering Facility: [facility] Address: [address] [place] [address] Performed By: #### 5 7021-8 ####[facility] [id number] [place] [address] [place] WBC (Bld) [#/Vol] 6.02 10*3/uL Normal 3.70-11.00 [facility] Comment on above: Order Comment: Speci men Type: BLOOD SPECIMENOrdering Facility: [facility] Address: [address] [place], [place] [address] Performed By: #### 5 7021-8 ####[facility] [id number] [place] [address] [place] CNNURSEon 08-19-2021 CNNURSE [facility] CNOVon 08-19-2021 CNOV [facility] CNOVSPon 08-19-2021 CNOVSP [facility] Comprehensive metabolic 2000 panelon 08-19-2021 Albumin [Mass/Vol] 4.6 g/dL Normal 3.9-4.9 [facility] Comment on above: Order Comment: Speci men Type: BLOOD SPECIMENOrdering Facility: [facility] Address: [address] [place] [address] Performed By: #### 2 4323-8, 3083-03, ####[facility] [id number] [place] [address] [place] ALP [Catalytic activity/Vol] 84 U/L Normal 38-113 [facility] Comment on above: Order Comment: Speci men Type: BLOOD SPECIMENOrdering Facility: [facility] Address: [address] [place] [address] Performed By: #### 2 4323-8, 3083-03, ####[facility] [id number] [place] [address] [place] ALT [Catalytic activity/Vol] 59 U/L High 10-54 [facility] Comment on above: Order Comment: Speci men Type: BLOOD SPECIMENOrdering Facility: [facility] Address: [address] [place], [place] [address] Performed By: #### 2 4323-8, 3083-03, ####[facility] [id number] [place] [address] [place] Anion gap [Moles/Vol] 12 mmol/L Normal 9-18 [facility] Comment on above: Order Comment: Speci men Type: BLOOD SPECIMENOrdering Facility: [facility] Address: [address] [place], [place] [address] Performed By: #### 2 4323-8, 3083-, ####[facility] [id number] [place] [address] [place] AST [Catalytic activity/Vol] 45 U/L High 14-40 [facility] Comment on above: Order Comment: Speci men Type: BLOOD SPECIMENOrdering Facility: [facility] Address: [address] [place], [place] [address] Performed By: #### 2 4323-8, 3083-1, ####[facility] [id number] [place] [address] [place] Bilirubin [Mass/Vol] 0.3 mg/dL Normal 0.2-1.3 [facility] Comment on above: Order Comment: Speci men Type: BLOOD SPECIMENOrdering Facility: [facility] Address: [address] [place], [place] [address] Performed By: #### 2 4323-8, 3083-03, ####[facility] [id number] [place] [address] [place] Calcium [Mass/Vol] 9.7 mg/dL Normal 8.5-10.2 [facility] Comment on above: Order Comment: Speci men Type: BLOOD SPECIMENOrdering Facility: [facility] Address: [address] [place], [place] [address] Performed By: #### 2 4323-8, 3083-03, ####[facility] [id number] [place] [address] [place] Chloride [Moles/Vol] 102 mmol/L Normal 97-105 [facility] Comment on above: Order Comment: Speci men Type: BLOOD SPECIMENOrdering Facility: [facility] Address: [address] [place], [place] [address] Performed By: #### 2 4323-8, 3083-03, ####[facility] [id number] [place] [address] [place] CO2 [Moles/Vol] 26 mmol/L Normal 22-30 [facility] Comment on above: Order Comment: Speci men Type: BLOOD SPECIMENOrdering Facility: [facility] Address: [address] [place], [place] [address] Performed By: #### 2 4323-8, 30806-06, ####[facility] [id number] [place] [address] [place] Creatinine [Mass/Vol] 1.26 mg/dL High 0.73-1.22 [facility] Comment on above: Order Comment: Speci men Type: BLOOD SPECIMENOrdering Facility: [facility] Address: [address] [place], [place] [address] Performed By: #### 2 4323-8, 3083-03, ####[facility] [id number] [address] [place] ESTIMATED GLOMERULAR FILTRATION RATE 67 mL/min/1.73m??? Normal >=60 [facility] Comment on above: Order Comment: Speci men Type: BLOOD SPECIMENOrdering Facility: [facility] Address: [address] [place], [place] [address] Result Comment: Laurita mated Glomerular Filtration Rate [...] #### 2 4323-8, 3083-03, ####[facility] [id number] [place] [address] [place] Glucose [Mass/Vol] 108 mg/dL High 74-99 [facility] Comment on above: Order Comment: Speci men Type: BLOOD SPECIMENOrdering Facility: [facility] Address: [address] [place], [place] [address] Result Comment: The [place] [employer] (ADA) provides guidance for cutoff [...] Standards of Medical Care in Diabetes 2016, [place] [employer]. Diabetes Care. 2016.39(Suppl 1). Performed By: #### 2 4323-8, 3084-1, ####[facility] [id number] [place] [address] [place] Potassium [Moles/Vol] 4.1 mmol/L Normal 3.7-5.1 [facility] Comment on above: Order Comment: Speci men Type: BLOOD SPECIMENOrdering Facility: [facility] Address: [address] [place], [place] [address] Performed By: #### 2 4323-8, 3084-1, ####[facility] [id number] [place] [address] [place] Protein [Mass/Vol] 7.4 g/dL Normal 6.3-8.0 [facility] Comment on above: Order Comment: Speci men Type: BLOOD SPECIMENOrdering Facility: [facility] Address: [address] [place], [place] [address] Performed By: #### 2 4323-8, 3084-1, 74661-0 ####[facility] [id number] [place] [address] [place] Sodium [Moles/Vol] 140 mmol/L Normal 136-144 [facility] Comment on above: Order Comment: Speci men Type: BLOOD SPECIMENOrdering Facility: [facility] Address: [address] [place], [place] [address] Performed By: #### 2 4323-8, 3084-1, ####[facility] [id number] [place] [address] [place] Urea nitrogen [Mass/Vol] 17 mg/dL Normal 9-24 [facility] Comment on above: Order Comment: Speci men Type: BLOOD SPECIMENOrdering Facility: [facility] Address: [address] [place] [address] Performed By: #### 2 4323-8, 3084-1, ####[facility] [id number] [place] [address] [place] LDH SerPl-cCncon 08-19-2021 LDH [Catalytic activity/Vol] 334 U/L High 135-225 [facility] Comment on above: Order Comment: Speci men Type: BLOOD SPECIMENOrdering Facility: [facility] Address: [address] [place], [place] [address] Performed By: #### 2 532-0 ####[facility] [id number] [place] [address] [place] Magnesium SerPl-mCncon 08-19 Magnesium [Mass/Vol] 2.3 mg/dL Normal 1.7-2.3 [facility] Comment on above: Order Comment: Speci men Type: BLOOD SPECIMENOrdering Facility: [facility] Address: [address] [place], [place] [address] Performed By: #### 2 4323-8, 3084-1, 07415-8 ####[facility] [id number] [place] [address] [place] PT panel Coag (PPP)on 2021 INR Coag (PPP) [Relative time] 1.0 {INR} Normal 0.9-1.3 [facility] Comment on above: Order Comment: Speci men Type: BLOOD SPECIMENOrdering Facility: [facility] Address: [address] [place], [place] [address] Result Comment: Constanza min K Antagonist (VKA) Therapeutic Range: INR 2 to 3 (Target INR of 2.5)Note: For patients treated with VKA drugs, such as warfarin, the [place] [employer] 2012 Guideline recommends [...] al. Chest 2012, 141:7S-47SCaitie RA, et al. [facility] 2017, 70: 252-289 Performed By: #### 3 4528-0, 74542-2 ####[facility] LABIA [id number] [place] [id number] [place] PT Coag (PPP) [Time] 10.9 s Normal 9.7-13.0 [facility] Comment on above: Order Comment: Aaliyah gibson Type: BLOOD SPECIMENOrdering Facility: [facility] Address: [address] [place] [address] Performed By: #### 3 4528-0, 92444-6 ####[facility]IA [id number] [place] [address] [place] Phosphate SerPl-mCncon 08-19 Phosphate [Mass/Vol] 4.2 mg/dL Normal 2.7-4.8 [facility] Comment on above: Order Comment: Speci men Type: BLOOD SPECIMENOrdering Facility: [facility] Address: [address] [place] [address] Performed By: #### 2 777-1 ####[facility] [id number] [place] [address] [place] Urate SerPl-nc Urate [Mass/Vol] 7.4 mg/dL Normal 4.0-8.1 [facility] Comment on above: Order Comment: Speci men Type: BLOOD SPECIMENOrdering Facility: [facility] Address: [address] [place] [address] Performed By: #### 2 4323-8, 3084-1, 95796-7 ####[facility] [id number] [address] [place] aPTT PPPon 08-19-2021 aPTT Coag (PPP) [Time] 28.3 s Normal 23.0-32.4 [facility] Comment on above: Order Comment: Speci men Type: BLOOD SPECIMENOrdering Facility: [facility] Address: [address] [place] [address] Performed By: #### 3 4528-0, 16009-5 ####[facility] [id number] [place] [address] [place] CNPNon 08-18-2021 CNPN [facility] CBC W Auto Differential pane l (Bld)on 08-17-2021 Basophils (Bld) [#/Vol] 0.04 10*3/uL Normal <0.11 [facility] Comment on above: Order Comment: Speci men Type: BLOOD SPECIMENOrdering Facility: [facility] Address: [address] [place], [place] [address] Performed By: #### 5 7021-8 ####[facility] LABCLIA [id number] [address] [place] Basophils/100 WBC (Bld) 0.5 % Normal [facility] Comment on above: Order Comment: Speci men Type: BLOOD SPECIMENOrdering Facility: [facility] Address: [address] [place], [place] [address] Performed By: #### 5 7021-8 ####[facility] LABCLIA [id number] [place] [address] [place] Differential cell count method Nom (Bld) Auto [facility] Comment on above: Order Comment: Speci men Type: BLOOD SPECIMENOrdering Facility: [facility] Address: [address] [place], [place] [address] Performed By: #### 5 7021-8 ####[facility] LABCLIA [id number] [place] [address] [place] Eosinophils (Bld) [#/Vol] 0.18 10*3/uL Normal <0.46 [facility] Comment on above: Order Comment: Speci men Type: BLOOD SPECIMENOrdering Facility: [facility] Address: [address] [place], [place] [address] Performed By: #### 5 7021-8 ####[facility] LABCLIA [id number] [address] [place] Eosinophils/100 WBC (Bld) 2.4 % [facility] Comment on above: Order Comment: Speci men Type: BLOOD SPECIMENOrdering Facility: [facility] Address: [address] [place], [place] [address] Performed By: #### 5 7021-8 ####[facility] LABCLIA [id number] [address] OF [facility] Erythrocyte distribution width (RBC) [Ratio] 14.6 % Normal 11.5-15.0 [facility] Comment on above: Order Comment: Speci men Type: BLOOD SPECIMENOrdering Facility: [facility] Address: [address] [place] [address] Performed By: #### 5 7021-8 ####[facility]IA [id number] [address] [place] OF [facility] Hematocrit (Bld) [Volume fraction] 47.4 % Normal 39.0-51.0 [facility] Comment on above: Order Comment: Speci men Type: BLOOD SPECIMENOrdering Facility: [facility] Address: [address] [place] [address] Performed By: #### 5 7021-8 ####[facility] [id number] [address] [place] OF [facility] Hemoglobin (Bld) [Mass/Vol] 16.4 g/dL Normal 13.0-17.0 [facility] Comment on above: Order Comment: Speci men Type: BLOOD SPECIMENOrdering Facility: [facility] Address: [address] [place] [address] Performed By: #### 5 7021-8 ####[facility] [id number] [address] [place] IMMATURE GRAN % 0.3 % [facility] Comment on above: Order Comment: Speci men Type: BLOOD SPECIMENOrdering Facility: [facility] Address: [address] [place], [place] [address] Performed By: #### 5 7021-8 ####[facility]IA [id number] [address] [place] IMMATURE GRAN ABS <0.03 Normal <0.10 [facility] Comment on above: Order Comment: Speci men Type: BLOOD SPECIMENOrdering Facility: [facility] Address: [address] [place], [place] [address] Performed By: #### 5 7021-8 ####[facility] LABCLIA [id number] [address] Lymphocytes (Bld) [#/Vol] 1.36 10*3/uL Normal 1.00-4.00 [facility] Comment on above: Order Comment: Speci men Type: BLOOD SPECIMENOrdering Facility: [facility] Address: [address] [place], [place] [address] Performed By: #### 5 7021-8 ####[facility] [id number] [address] [place] Lymphocytes/100 WBC (Bld) 18.4 % [facility] Comment on above: Order Comment: Speci men Type: BLOOD SPECIMENOrdering Facility: [facility] Address: [address] [place], [place] [address] Performed By: #### 5 7021-8 ####[facility]IA [id number] [address] [place] MCH (RBC) [Entitic mass] 29.8 pg Normal 26.0-34.0 [facility] Comment on above: Order Comment: Speci men Type: BLOOD SPECIMENOrdering Facility: [facility] Address: [address] [place] [address] Performed By: #### 5 7021-8 ####[facility] LABCLIA [id number] [place] [address] [place] MCHC (RBC) [Mass/Vol] 34.6 g/dL Normal 30.5-36.0 [facility] Comment on above: Order Comment: Speci men Type: BLOOD SPECIMENOrdering Facility: [facility] Address: [address] [place] [address] Performed By: #### 5 7021-8 ####[facility] LABCLIA [id number] [place] [address] [place] MCV (RBC) [Entitic vol] 86.0 fL Normal 80.0-100.0 [facility] Comment on above: Order Comment: Speci men Type: BLOOD SPECIMENOrdering Facility: [facility] Address: [address] [place] [address] Performed By: #### 5 7021-8 ####[facility] [id number] [place] [address] [place] Monocytes (Bld) [#/Vol] 0.42 10*3/uL Normal <0.87 [facility] Comment on above: Order Comment: Speci men Type: BLOOD SPECIMENOrdering Facility: [facility] Address: [address] [place] [address] Performed By: #### 5 7021-8 ####[facility] [id number] [place] [address] [place] Monocytes/100 WBC (Bld) 5.7 % Normal [facility] Comment on above: Order Comment: Speci men Type: BLOOD SPECIMENOrdering Facility: [facility] Address: [address] [place], [place] [address] Performed By: #### 5 7021-8 ####[facility] [id number] [place] [address] [place] Neutrophils (Bld) [#/Vol] 5.37 10*3/uL Normal 1.45-7.50 [facility] Comment on above: Order Comment: Speci men Type: BLOOD SPECIMENOrdering Facility: [facility] Address: [address] [place], [place] [address] Performed By: #### 5 7021-8 ####[facility] [id number] [place] [address] [place] Neutrophils/100 WBC (Bld) 72.7 % [facility] Comment on above: Order Comment: Speci men Type: BLOOD SPECIMENOrdering Facility: [facility] Address: [address] [place], [place] [address] Performed By: #### 5 7021-8 ####[facility]IA [id number] [place] [address] [place] Nucleated RBC (Bld) [#/Vol] 10*3/uL Normal <0.01 [facility] Comment on above: Order Comment: Speci men Type: BLOOD SPECIMENOrdering Facility: [facility] Address: [address] [place], [place] [address] Performed By: #### 5 7021-8 ####[facility] [id number] [place] [address] [place] Nucleated RBC/100 WBC (Bld) [Ratio] 0.0 /100 WBC [facility] Comment on above: Order Comment: Speci men Type: BLOOD SPECIMENOrdering Facility: [facility] Address: [address] [place], [place] [address] Performed By: #### 5 7021-8 ####[facility] [id number] [place] [address] [place] Platelet mean volume (Bld) [Entitic vol] 10.0 fL Normal 9.0-12.7 [facility] Comment on above: Order Comment: Speci men Type: BLOOD SPECIMENOrdering Facility: [facility] Address: [address] [place] [address] Performed By: #### 5 7021-8 ####[facility] [id number] [place] [address] [place] Platelets (Bld) [#/Vol] 288 10*3/uL Normal 150-400 [facility] Comment on above: Order Comment: Speci men Type: BLOOD SPECIMENOrdering Facility: [facility] Address: [address] [place], [place] [address] Performed By: #### 5 7021-8 ####[facility] LABCLIA [id number] [place] [address] [place] RBC (Bld) [#/Vol] 5.51 10*6/uL Normal 4.20-6.00 [facility] Comment on above: Order Comment: Speci men Type: BLOOD SPECIMENOrdering Facility: [facility] Address: [address] [place], [place] [address] Performed By: #### 5 7021-8 ####[facility] [id number] [place] [address] [place] WBC (Bld) [#/Vol] 7.39 10*3/uL Normal 3.70-11.00 [facility] Comment on above: Order Comment: Speci men Type: BLOOD SPECIMENOrdering Facility: [facility] Address: [address] [place], [place] [address] Performed By: #### 5 7021-8 ####[facility] [id number] [place] [address] [place] ABD/PEL WO IVCONon 2021 CT ABD/PEL WO IVCON Normal [facility] CT CHEST W IVCON PEon 2021 CT CHEST W IVCON PE Normal [facility] Comprehensive metabolic 2000 panelon 08-17-2021 Albumin [Mass/Vol] 4.4 g/dL Normal 3.9-4.9 [facility] Comment on above: Order Comment: Speci men Type: BLOOD SPECIMENOrdering Facility: [facility] Address: [address] [place], [place] [address] Performed By: #### 3 040-3, 30866-2, 99211-3, 34661-9, BEAU ####[facility] LABCLIA [id number] [id number] [address] [place] ALP [Catalytic activity/Vol] 74 U/L Normal 38-113 [facility] Comment on above: Order Comment: Speci men Type: BLOOD SPECIMENOrdering Facility: [facility] Address: [address] [place] [address] Performed By: #### 3 040-3, 13606-4, 97949-7, 69264-9, BEAU ####[facility]CLIA [id number] [address] [place] ALT [Catalytic activity/Vol] 44 U/L Normal 10-54 [facility] Comment on above: Order Comment: Speci men Type: BLOOD SPECIMENOrdering Facility: [facility] Address: [address] [place] [address] Performed By: #### 3 040-3, 59239-7, 31507-8, 00546-6, BEAU ####[facility] [id number] [address] [place] Anion gap [Moles/Vol] 12 mmol/L Normal 9-18 [facility] Comment on above: Order Comment: Speci men Type: BLOOD SPECIMENOrdering Facility: [facility] Address: [address] [place] [address] Performed By: #### 3 040-3, 48225-3, 06716-2, 02673-9, BEAU ####[facility] [id number] [address] [place] OF [facility] AST [Catalytic activity/Vol] 27 U/L Normal 14-40 [facility] Comment on above: Order Comment: Speci men Type: BLOOD SPECIMENOrdering Facility: [facility] Address: [address] [place] [address] Performed By: #### 3 040-3, 49141-9, 63522-9, 84001-4, BEAU ####[facility] LABCLIA [id number] [place] [address] [place] Bilirubin [Mass/Vol] 0.7 mg/dL Normal 0.2-1.3 [facility] Comment on above: Order Comment: Speci men Type: BLOOD SPECIMENOrdering Facility: [facility] Address: [address] [place] [address] Performed By: #### 3 040-3, 90214-6, 73869-2, 82307-9, BEAU ####[facility] LABCLIA [id number] [place] [address] [place] Calcium [Mass/Vol] 10.3 mg/dL High 8.5-10.2 [facility] Comment on above: Order Comment: Speci men Type: BLOOD SPECIMENOrdering Facility: [facility] Address: [address] [place] [address] Performed By: #### 3 040-3, 34575-8, 55058-3, 04016-9, BEAU ####[facility] LABCLIA [id number] [address] [place] Chloride [Moles/Vol] 99 mmol/L Normal 97-105 [facility] Comment on above: Order Comment: Speci men Type: BLOOD SPECIMENOrdering Facility: [facility] Address: [address] [place] [address] Performed By: #### 3 040-3, 57118-9, 22907-9, 44611-8, BEAU ####[facility] LABCLIA [id number] [place] [address] [place] CO2 [Moles/Vol] 26 mmol/L Normal 22-30 [facility] Comment on above: Order Comment: Speci men Type: BLOOD SPECIMENOrdering Facility: [facility] Address: [address] [place] [address] Performed By: #### 3 040-3, 15635-6, 47477-8, 21717-8, BEAU ####[facility]CLIA [id number] [address] [place] OF [facility] Creatinine [Mass/Vol] 1.21 mg/dL Normal 0.73-1.22 [facility] Comment on above: Order Comment: Aaliyah gibson Type: BLOOD SPECIMENOrdering Facility: [facility] Address: [address] [place] [id number] Performed By: #### 3 040-3, 12578-0, 75780-3, 03551-6, BEAU ####[facility] LABCLIA [id number] [address] [place] OF [facility] ESTIMATED GLOMERULAR FILTRATION RATE 70 mL/min/1.73m??? Normal >=60 [facility] Comment on above: Order Comment: Aaliyah gibson Type: BLOOD SPECIMENOrdering Facility: [facility] Address: [address] [place] [address] Result Comment: Laurita mated Glomerular Filtration Rate [...] actual GFR. Performed By: #### 3 040-3, 29260-2, 86807-2, 33250-8, BEAU ####[facility] LABCLIA [id number] [place] [address] [place] Glucose [Mass/Vol] 118 mg/dL High 74-99 [facility] Comment on above: Order Comment: Aaliyah gibson Type: BLOOD SPECIMENOrdering Facility: [facility] Address: [address] [place] [address] Result Comment: The [place] [employer] (ADA) provides guidance for cutoff [...] Standards of Medical Care in Diabetes 2016, [place] [employer]. Diabetes Care. 2016.39(Suppl 1). Performed By: #### 3 040-3, 20274-5, 64194-2, 03521-1, BEAU ####[facility] LABCLIA [id number] [place] [address] [place] Potassium [Moles/Vol] 4.1 mmol/L Normal 3.7-5.1 [facility] Comment on above: Order Comment: Aaliyah gibson Type: BLOOD SPECIMENOrdering Facility: [facility] Address: [address] [place] [address] Performed By: #### 3 040-3, 54210-6, , , BEAU ####[facility] LABCLIA [id number] [place] [address] [place] Protein [Mass/Vol] 7.8 g/dL Normal 6.3-8.0 [facility] Comment on above: Order Comment: Aaliyah gibson Type: BLOOD SPECIMENOrdering Facility: [facility] Address: [address] [place] [address] Performed By: #### 3 040-3, 88627-3, , , BEAU ####[facility] LABCLIA [id number] [place] [address] [place] Sodium [Moles/Vol] 137 mmol/L Normal 136-144 [facility] Comment on above: Order Comment: Aaliyah gibson Type: BLOOD SPECIMENOrdering Facility: [facility] Address: [address] [place] [address] Performed By: #### 3 040-3, 11984-7, , , BEAU ####[facility] LABCLIA [id number] [place] [address] [place] Urea nitrogen [Mass/Vol] 13 mg/dL Normal 9-24 [facility] Comment on above: Order Comment: Speci men Type: BLOOD SPECIMENOrdering Facility: [facility] Address: [address] [place] [address] Performed By: #### 3 040-3, 33657-8, 40562-7, 35294-7, BEAU ####[facility] LABCLIA [id number] [place] [address] [place] D dimer FEU PPP-mCncon 08-17 Fibrin D-dimer FEU (PPP) [Mass/Vol] 1060 ng/mL FEU High <500 [facility] Comment on above: Order Comment: Speci men Type: BLOOD SPECIMENOrdering Facility: [facility] Address: [address] [place] [address] Performed By: #### 4 8065-7 ####[facility] [id number] [place] [address] [place] ED NOTEon 08-17-2021 ED NOTE [facility] ED PROV NOTEon 08-17-2021 ED PROV NOTE [facility] ED PROV NOTE [facility] Fibrin D-dimer FEU (PPP) [Ma ss/Vol]on 08-17-2021 D DIMER AGE-RELATED CUTOFF 570 ng/mL FEU [facility] Comment on above: Order Comment: Speci men Type: BLOOD SPECIMENOrdering Facility: [facility] Address: [address] [place], [place] [id number] Performed By: #### 4 8065-7 ####[facility] [id number] [place] [id number] [place] Lipase SerPl-cCncon 08-18-19 22 Lipase [Catalytic activity/Vol] 22 U/L Normal 16-61 [facility] Comment on above: Order Comment: Speci men Type: BLOOD SPECIMENOrdering Facility: [facility] Address: [address] [place] [address] Performed By: #### 3 040-3, 37705-7, 42951-7, 96775-8, BEAU ####[facility] LABCLIA [id number] [place] [address] [place] Magnesium SerPl-ncon 08-17 Magnesium [Mass/Vol] 2.0 mg/dL Normal 1.7-2.3 [facility] Comment on above: Order Comment: Speci men Type: BLOOD SPECIMENOrdering Facility: [facility] Address: [address] [place] [address] Performed By: #### 3 040-3, 49926-2, , , BEAU ####[facility] LABIA [id number] [place] [address] [place] [facility]BNP [facility] Natriuretic peptide.B prohormone N-Terminal [Mass/Vol] 1881 pg/mL High <125 [facility] Comment on above: Order Comment: Speci men Type: BLOOD SPECIMENOrdering Facility: [facility] Address: [address] [place] [address] Performed By: #### 3 040-3, 93704-8, , , BEAU ####[facility] LABIA [id number] [address] [place] TROPONIN Ton 08-17-2021 Troponin T.cardiac [Mass/Vol] 0.022 ug/L Normal 0.000-0.02 9 [facility] Comment on above: Order Comment: Speci men Type: BLOOD SPECIMENOrdering Facility: [facility] Address: [address] [place] [address] Performed By: #### 3 040-3, 53606-1, , 16915-2, BEAU ####[facility] LABCLIA [id number] [place] [address] [place] Urinalysis complete panel (U )on 08-17-2021 Bilirubin Ql (U) Negative Normal Negative [facility] Comment on above: Order Comment: Speci men Type: URINE SPECIMENOrdering Facility: [facility] Address: [address] [place] [address] Performed By: #### 2 4356-8 ####[facility] LABCLIA [id number] [place] [address] [place] Clarity (Unsp spec) Clear Normal Clear [facility] Comment on above: Order Comment: Speci men Type: URINE SPECIMENOrdering Facility: [facility] Address: [address] [place] [address] Performed By: #### 2 4356-8 ####[facility] LABIA [id number] [place] [address] [place] [address] [facility] Color (U) Yellow Normal Yellow [facility] Comment on above: Order Comment: Speci men Type: URINE SPECIMENOrdering Facility: [facility] Address: [address] [place] [address] Performed By: #### 2 4356-8 ####[facility] LABIA [id number] [place] [address] [place] Epithelial cells LM.HPF (Urine sed) [#/Area] Few Normal [facility] Comment on above: Order Comment: Speci men Type: URINE SPECIMENOrdering Facility: [facility] Address: [address] [place], [place] [address] Performed By: #### 2 4356-8 ####[facility] LABIA [id number] [place] [address] [place] Glucose Test strip (U) [Mass/Vol] Negative Normal Negative [facility] Comment on above: Order Comment: Speci men Type: URINE SPECIMENOrdering Facility: [facility] Address: [address] [place], [place] [address] Performed By: #### 2 4356-8 ####[facility] LABCLIA [id number] [place] [address] [place] Hemoglobin Ql (U) Negative Normal Negative [facility] Comment on above: Order Comment: Speci men Type: URINE SPECIMENOrdering Facility: [facility] Address: [address] [place], [place] [address] Performed By: #### 2 4356-8 ####[facility] LABCLIA [id number] [place] [address] [place] Hyaline casts (Urine sed) [#/Area] 1-3 /LPF Abnormal 0 /LPF [facility] Comment on above: Order Comment: Speci men Type: URINE SPECIMENOrdering Facility: [facility] Address: [address] [place], [place] [address] Performed By: #### 2 4356-8 ####[facility] LABCLIA [id number] [address] [place] Ketones Ql (U) Negative Normal Negative [facility] Comment on above: Order Comment: Speci men Type: URINE SPECIMENOrdering Facility: [facility] Address: [address] [place], [place] [address] Performed By: #### 2 4356-8 ####[facility] LABCLIA [id number] [place] [address] [place] Leukocyte esterase Test strip Ql (U) Negative Normal Negative [facility] Comment on above: Order Comment: Speci men Type: URINE SPECIMENOrdering Facility: [facility] Address: [address] [place], [place] [address] Performed By: #### 2 4356-8 ####[facility] LABCLIA [id number] [address] [place] Nitrite Ql (U) Negative Normal Negative [facility] Comment on above: Order Comment: Speci men Type: URINE SPECIMENOrdering Facility: [facility] Address: [address] [place] [address] Performed By: #### 2 4356-8 ####[facility] LABIA [id number] [place] [address] [place] pH (U) 7.0 [pH] Normal 5.0-8.0 [facility] Comment on above: Order Comment: Speci men Type: URINE SPECIMENOrdering Facility: [facility] Address: [address] [place] [address] Performed By: #### 2 4356-8 ####[facility] LABIA [id number] [place] [address] [place] Protein (U) [Mass/Vol] Negative Normal Negative [facility] Comment on above: Order Comment: Speci men Type: URINE SPECIMENOrdering Facility: [facility] Address: [address] [place] [address] Performed By: #### 2 4356-8 ####[facility] LABIA [id number] [place] [address] [place] RBC LM.HPF (Urine sed) [#/Area] 0-3 /HPF Normal 0-3 /HPF [facility] Comment on above: Order Comment: Speci men Type: URINE SPECIMENOrdering Facility: [facility] Address: [address] [place] [address] Performed By: #### 2 4356-8 ####[facility] LABIA [id number] [place] [address] [place] Specific gravity (U) [Rel density] 1.016 Normal 1.005-1.03 0 [facility] Comment on above: Order Comment: Speci men Type: URINE SPECIMENOrdering Facility: [facility] Address: [address] [place] [address] Performed By: #### 2 4356-8 ####[facility] LABIA [id number] [place] [address] [place] Urobilinogen Ql (U) Negative Normal Negative [facility] Comment on above: Order Comment: Speci men Type: URINE SPECIMENOrdering Facility: [facility] Address: [address] [place] [address] Performed By: #### 2 4356-8 ####[facility] [id number] [place] [address] [place] WBC LM.HPF (Urine sed) [#/Area] 0-5 /HPF Normal 0-5 /HPF [facility] Comment on above: Order Comment: Speci men Type: URINE SPECIMENOrdering Facility: [facility] Address: [address] [place] [address] Performed By: #### 2 4356-8 ####[facility] [id number] [place] [address] [place] XR CHEST 1V FRONTAL PORTon 0 08-17-2021 XR CHEST 1V FRONTAL PORT Normal [facility] CNPNon 08-13-2021 CNPN Normal [facility] CNPNon 08-12-2021 CNPN Normal [facility] CNPNon 08-11-2021 CNPN Normal [facility] ACTIVATED PTTon 08-08-2021 aPTT Coag (PPP) [Time] 29.9 s 23.0 - 32.4 sec [facility] CBC W Auto Differential pane l (Bld)on 08-08-2021 Basophils (Bld) [#/Vol] 10*3/uL Normal <0.11 [facility] Comment on above: Order Comment: Speci men Type: BLOOD SPECIMENOrdering Facility: [facility] Address: [address] [place], [place] [address] Performed By: #### 5 7021-8 ####[facility] [id number] [address] [place] Basophils/100 WBC (Bld) 0.3 % Normal [facility] Comment on above: Order Comment: Speci men Type: BLOOD SPECIMENOrdering Facility: [facility] Address: [address] [place] [address] Performed By: #### 5 7021-8 ####[facility] [id number] [place] [address] [place] Differential cell count method Nom (Bld) Auto Normal [facility] Comment on above: Order Comment: Speci men Type: BLOOD SPECIMENOrdering Facility: [facility] Address: [address] [place] [address] Performed By: #### 5 7021-8 ####[facility] [place] [id number] [place] [address] [place] Eosinophils (Bld) [#/Vol] 0.04 10*3/uL Normal <0.46 [facility] Comment on above: Order Comment: Speci men Type: BLOOD SPECIMENOrdering Facility: [facility] Address: [address] [place] [address] Performed By: #### 5 7021-8 ####[facility] [place] [id number] [place] [address] [facility] Eosinophils/100 WBC (Bld) 0.7 % Normal [facility] Comment on above: Order Comment: Speci men Type: BLOOD SPECIMENOrdering Facility: [facility] Address: [address] [place] [address] Performed By: #### 5 7021-8 ####[facility] [place] [id number] [place] [address] [place] Erythrocyte distribution width (RBC) [Ratio] 15.6 % High 11.5-15.0 [facility] Comment on above: Order Comment: Speci men Type: BLOOD SPECIMENOrdering Facility: [facility] Address: [address] [place] [address] Performed By: #### 5 7021-8 ####[facility] [place] [id number] [place] [address] Hematocrit (Bld) [Volume fraction] 43.0 % Normal 39.0-51.0 [facility] Comment on above: Order Comment: Speci men Type: BLOOD SPECIMENOrdering Facility: [facility] Address: [address] [place] [address] Performed By: #### 5 7021-8 ####[facility] [place] [id number] [place] [address] Hemoglobin (Bld) [Mass/Vol] 14.6 g/dL Normal 13.0-17.0 [facility] Comment on above: Order Comment: Speci men Type: BLOOD SPECIMENOrdering Facility: [facility] Address: [address] [place] [address] Performed By: #### 5 7021-8 ####[facility] [id number] [place] [address] IMMATURE GRAN % 0.3 % Normal [facility] Comment on above: Order Comment: Speci men Type: BLOOD SPECIMENOrdering Facility: [facility] Address: [address] [place] [address] Performed By: #### 5 7021-8 ####[facility] [id number] [place] [address] IMMATURE GRAN ABS <0.03 Normal <0.10 [facility] Comment on above: Order Comment: Speci men Type: BLOOD SPECIMENOrdering Facility: [facility] Address: [address] [place] [address] Performed By: #### 5 7021-8 ####[facility] [id number] [place] [address] [place] Lymphocytes (Bld) [#/Vol] 1.61 10*3/uL Normal 1.00-4.00 [facility] Comment on above: Order Comment: Speci men Type: BLOOD SPECIMENOrdering Facility: [facility] Address: [address] [place] [address] Performed By: #### 5 7021-8 ####[facility] [place] [id number] [place] [address] Lymphocytes/100 WBC (Bld) 26.6 % Normal [facility] Comment on above: Order Comment: Speci men Type: BLOOD SPECIMENOrdering Facility: [facility] Address: [address] [place] [address] Performed By: #### 5 7021-8 ####[facility] [place] [id number] [place] [address] MCH (RBC) [Entitic mass] 29.9 pg Normal 26.0-34.0 [facility] Comment on above: Order Comment: Speci men Type: BLOOD SPECIMENOrdering Facility: [facility] Address: [address] [place] [address] Performed By: #### 5 7021-8 ####[facility] [place] [id number] [place] [address] [facility] MCHC (RBC) [Mass/Vol] 34.0 g/dL Normal 30.5-36.0 [facility] Comment on above: Order Comment: Speci men Type: BLOOD SPECIMENOrdering Facility: [facility] Address: [address] [place] [address] Performed By: #### 5 7021-8 ####[facility] [id number] [place] [address] MCV (RBC) [Entitic vol] 87.9 fL Normal 80.0-100.0 [facility] Comment on above: Order Comment: Speci men Type: BLOOD SPECIMENOrdering Facility: [facility] Address: [address] [place] [address] Performed By: #### 5 7021-8 ####[facility] [id number] [place] [address] [place] Monocytes (Bld) [#/Vol] 0.40 10*3/uL Normal <0.87 [facility] Comment on above: Order Comment: Speci men Type: BLOOD SPECIMENOrdering Facility: [facility] Address: [address] [place], [place] [address] Performed By: #### 5 7021-8 ####[facility] [place] [id number] [place] [address] [place] Monocytes/100 WBC (Bld) 6.6 % Normal [facility] Comment on above: Order Comment: Speci men Type: BLOOD SPECIMENOrdering Facility: [facility] Address: [address] [place] [address] Performed By: #### 5 7021-8 ####[facility] [place] [id number] [place] [address] [place] Neutrophils (Bld) [#/Vol] 3.97 10*3/uL Normal 1.45-7.50 [facility] Comment on above: Order Comment: Speci men Type: BLOOD SPECIMENOrdering Facility: [facility] Address: [address] [place], [place] [address] Performed By: #### 5 7021-8 ####[facility] [id number] [place] [address] [place] Neutrophils/100 WBC (Bld) 65.5 % Normal [facility] Comment on above: Order Comment: Speci men Type: BLOOD SPECIMENOrdering Facility: [facility] Address: [address] [place] [address] Performed By: #### 5 7021-8 ####[facility] [id number] [place] [address] [place] Nucleated RBC (Bld) [#/Vol] 10*3/uL Normal <0.01 [facility] Comment on above: Order Comment: Speci men Type: BLOOD SPECIMENOrdering Facility: [facility] Address: [address] [place] [address] Performed By: #### 5 7021-8 ####[facility] [id number] [place] [address] [place] Nucleated RBC/100 WBC (Bld) [Ratio] 0.0 /100 WBC [facility] Comment on above: Order Comment: Speci men Type: BLOOD SPECIMENOrdering Facility: [facility] Address: [address] [place], [place] [address] Performed By: #### 5 7021-8 ####[facility] [id number] [place] [address] [place] Platelet mean volume (Bld) [Entitic vol] 10.1 fL Normal 9.0-12.7 [facility] Comment on above: Order Comment: Speci men Type: BLOOD SPECIMENOrdering Facility: [facility] Address: [address] [place] [address] Performed By: #### 5 7021-8 ####[facility] [id number] [place] [address] [place] Platelets (Bld) [#/Vol] 263 10*3/uL Normal 150-400 [facility] Comment on above: Order Comment: Speci men Type: BLOOD SPECIMENOrdering Facility: [facility] Address: [address] [place] [address] Performed By: #### 5 7021-8 ####[facility] [id number] [place] [address] [place] RBC (Bld) [#/Vol] 4.89 10*6/uL Normal 4.20-6.00 [facility] Comment on above: Order Comment: Speci men Type: BLOOD SPECIMENOrdering Facility: [facility] Address: [address] [place] [address] Performed By: #### 5 7021-8 ####[facility] [id number] [address] WBC (Bld) [#/Vol] 6.06 10*3/uL Normal 3.70-11.00 [facility] Comment on above: Order Comment: Speci men Type: BLOOD SPECIMENOrdering Facility: [facility] Address: [address] [place] [address] Performed By: #### 5 7021-8 ####[facility] [id number] [address] STATES OF [facility] Abs Immature Gran <0.03 <0.10 k/uL [facility] Basophils (Bld) [#/Vol] 10*3/uL <0.11 k/uL [facility] Basophils/100 WBC (Bld) 0.3 % C [facility] Differential cell count method Nom (Bld) Auto [facility] Eosinophils (Bld) [#/Vol] 0.04 10*3/uL <0.46 k/uL [facility] Eosinophils/100 WBC (Bld) 0.7 % [facility] Erythrocyte distribution width (RBC) [Ratio] 15.6 % High 11.5 - 15.0 % [facility] Hematocrit (Bld) [Volume fraction] 43.0 % 39.0 - 51.0 % [facility] Hemoglobin (Bld) [Mass/Vol] 14.6 g/dL 13.0 - 17.0 g/dL [facility] Immature Gran % 0.3 % [facility] Lymphocytes (Bld) [#/Vol] 1.61 10*3/uL 1.00 - 4.00 k/uL [facility] Lymphocytes/100 WBC (Bld) 26.6 % [facility] MCH (RBC) [Entitic mass] 29.9 pg 26.0 - 34.0 pg [facility] MCHC (RBC) [Mass/Vol] 34.0 g/dL 30.5 - 36.0 g/dL [facility] MCV (RBC) [Entitic vol] 87.9 fL 80.0 - 100.0 fL [facility] Monocytes (Bld) [#/Vol] 0.40 10*3/uL <0.87 k/uL [facility] Monocytes/100 WBC (Bld) 6.6 % [facility] Neutrophils (Bld) [#/Vol] 3.97 10*3/uL 1.45 - 7.50 k/uL [facility] Neutrophils/100 WBC (Bld) 65.5 % [facility] Nucleated RBC (Bld) [#/Vol] 10*3/uL <0.01 k/uL [facility] Nucleated RBC/100 WBC (Bld) [Ratio] 0.0 /100 WBC [facility] Platelet mean volume (Bld) [Entitic vol] 10.1 fL 9.0 - 12.7 fL [facility] Platelets (Bld) [#/Vol] 263 10*3/uL 150 - 400 k/uL [facility] RBC (Bld) [#/Vol] 4.89 10*6/uL 4.20 - 6.00 m/uL [facility] WBC (Bld) [#/Vol] 6.06 10*3/uL 3.70 - 11.00 k/uL [facility] CNNURSEon 08-08-2021 CNNURSE [facility] CNOVSPon 08-08-2021 CNOVSP [facility] CNSWon 08-08-2021 CNSW [facility] Comprehensive metabolic 2000 panelon 08-08-2021 Albumin [Mass/Vol] 4.2 g/dL Normal 3.9-4.9 [facility] Comment on above: Order Comment: Speci men Type: BLOOD SPECIMENOrdering Facility: [facility] Address: [address] [place] [address] Performed By: #### 2 4323-8, 3084-1, 59767-5 ####[facility] [id number] [place] [address] [place] ALP [Catalytic activity/Vol] 56 U/L Normal 38-113 [facility] Comment on above: Order Comment: Speci men Type: BLOOD SPECIMENOrdering Facility: [facility] Address: [address] [place], [place] [address] Performed By: #### 2 4323-8, 3084-1, ####[facility] [id number] [place] [address] [place] ALT [Catalytic activity/Vol] 34 U/L Normal 10-54 [facility] Comment on above: Order Comment: Speci men Type: BLOOD SPECIMENOrdering Facility: [facility] Address: [address] [place] [address] Performed By: #### 2 4323-8, 3083-, ####[facility] [id number] [place] [address] [place] Anion gap [Moles/Vol] 10 mmol/L Normal 9-18 [facility] Comment on above: Order Comment: Speci men Type: BLOOD SPECIMENOrdering Facility: [facility] Address: [address] [place], [place] [address] Performed By: #### 2 4323-8, 308-1, ####[facility] [id number] [place] [address] [place] AST [Catalytic activity/Vol] 18 U/L Normal 14-40 [facility] Comment on above: Order Comment: Speci men Type: BLOOD SPECIMENOrdering Facility: [facility] Address: [address] [place], [place] [address] Performed By: #### 2 4323-8, 3084-1, ####[facility] [id number] [place] [address] [place] Bilirubin [Mass/Vol] 0.5 mg/dL Normal 0.2-1.3 [facility] Comment on above: Order Comment: Speci men Type: BLOOD SPECIMENOrdering Facility: [facility] Address: [address] [place], [place] [address] Performed By: #### 2 4323-8, 3084-1, ####[facility] [id number] [place] [address] [place] Calcium [Mass/Vol] 9.6 mg/dL Normal 8.5-10.2 [facility] Comment on above: Order Comment: Speci men Type: BLOOD SPECIMENOrdering Facility: [facility] Address: [address] [place], [place] [address] Performed By: #### 2 4323-8, 3083-1, ####[facility] [place] [id number] [place] [address] [place] Chloride [Moles/Vol] 103 mmol/L Normal 97-105 [facility] Comment on above: Order Comment: Speci men Type: BLOOD SPECIMENOrdering Facility: [facility] Address: [address] [place] [address] Performed By: #### 2 4323-8, 3083-, ####[facility] [place] [id number] [place] [address] [place] CO2 [Moles/Vol] 26 mmol/L Normal 22-30 [facility] Comment on above: Order Comment: Speci men Type: BLOOD SPECIMENOrdering Facility: [facility] Address: [address] [place] [address] Performed By: #### 2 4323-8, 3083-1, ####[facility] [id number] [place] [id number] [place] Creatinine [Mass/Vol] 1.24 mg/dL High 0.73-1.22 [facility] Comment on above: Order Comment: Aaliyah gibson Type: BLOOD SPECIMENOrdering Facility: [facility] Address: [address] [place], [place] [address] Performed By: #### 2 4323-8, 3084-1, ####[facility] [id number] [address] [place] OF [place] ESTIMATED GLOMERULAR FILTRATION RATE 68 mL/min/1.73m??? Normal >=60 [facility] Comment on above: Order Comment: Aaliyah gibson Type: BLOOD SPECIMENOrdering Facility: [facility] Address: [address] [place], [place] [address] Result Comment: Laurita mated Glomerular Filtration Rate [...] #### 2 4323-8, 3083-1, ####[facility] [id number] [place] [address] [place] Glucose [Mass/Vol] 119 mg/dL High 74-99 [facility] Comment on above: Order Comment: Aaliyah gibson Type: BLOOD SPECIMENOrdering Facility: [facility] Address: [address] [place], [place] [address] Result Comment: The [place] [employer] (ADA) provides guidance for cutoff [...] Standards of Medical Care in Diabetes 2016, [place] [employer]. Diabetes Care. 2016.39(Suppl 1). Performed By: #### 2 4323-8, 3083-03, ####[facility] [id number] [place] [address] [place] Potassium [Moles/Vol] 4.2 mmol/L Normal 3.7-5.1 [facility] Comment on above: Order Comment: Speci men Type: BLOOD SPECIMENOrdering Facility: [facility] Address: [address] [place], [place] [phone] Performed By: #### 2 4323-8, 3083-03, ####[facility] [id number] [place] [address] [place] Protein [Mass/Vol] 6.8 g/dL Normal 6.3-8.0 [facility] Comment on above: Order Comment: Speci men Type: BLOOD SPECIMENOrdering Facility: [facility] Address: [address] [place], [place] [phone] Performed By: #### 2 4323-8, 3083-03, ####[facility] [id number] [place] [address] [place] Sodium [Moles/Vol] 139 mmol/L Normal 136-144 [facility] Comment on above: Order Comment: Speci men Type: BLOOD SPECIMENOrdering Facility: [facility] Address: [address] [place] [id number] Performed By: #### 2 4323-8, 3083-03, ####[facility] [id number] [place] [id number] [place] Urea nitrogen [Mass/Vol] 15 mg/dL Normal 9-24 [facility] Comment on above: Order Comment: Speci men Type: BLOOD SPECIMENOrdering Facility: [facility] Address: [address] [place], [place] [id number] Performed By: #### 2 4323-8, 3084-1, 97031-1 ####[facility] [id number] [facility] [id number] [place], [place] [id number] [place] Albumin [Mass/Vol] 4.2 g/dL 3.9 - 4.9 g/dL [facility] ALP [Catalytic activity/Vol] 56 U/L 38 - 113 U/L [facility] ALT [Catalytic activity/Vol] 34 U/L 10 - 54 U/L [facility] Anion gap [Moles/Vol] 10 mmol/L 9 - 18 mmol/L [facility] AST [Catalytic activity/Vol] 18 U/L 14 - 40 U/L [facility] Bilirubin [Mass/Vol] 0.5 mg/dL 0.2 - 1 .3 mg/dL [facility] Calcium [Mass/Vol] 9.6 mg/dL 8.5 - 10. 2 mg/dL [facility] Chloride [Moles/Vol] 103 mmol/L 97 - 10 5 mmol/L [facility] CO2 [Moles/Vol] 26 mmol/L 22 - 30 mmol/L [facility] Creatinine [Mass/Vol] 1.24 mg/dL High 0.73 - 1.22 mg/dL [facility] Estimated Glomerular Filtration Rate 68 mL/min/1.73m >=60 mL/min/1.7 3m [facility] Glucose [Mass/Vol] 119 mg/dL High 74 - 99 mg/dL [facility] Potassium [Moles/Vol] 4.2 mmol/L 3.7 - 5.1 mmol/L [facility] Protein [Mass/Vol] 6.8 g/dL 6.3 - 8.0 g/dL [facility] Sodium [Moles/Vol] 139 mmol/L 136 - 144 mmol/L [facility] Urea nitrogen [Mass/Vol] 15 mg/dL 9 - 24 mg/dL [facility] LD LACTATE DEHYDROon 022 LDH [Catalytic activity/Vol] 232 U/L High 135 - 225 U/L [facility] LDH SerPl-cCncon 08-08-2021 LDH [Catalytic activity/Vol] 232 U/L High 135-225 [facility] Comment on above: Order Comment: Aaliyah gibson Type: BLOOD SPECIMENOrdering Facility: [facility] Address: [address] [place] [address] Performed By: #### 2 532-0 ####[facility] [id number] [place] [address] [place] MAGNESIUM BLDon 08-08-2021 Magnesium [Mass/Vol] 2.1 mg/dL 1.7 - 2 .3 mg/dL [facility] Magnesium SerPl-mCncon 08-08 Magnesium [Mass/Vol] 2.1 mg/dL Normal 1.7-2.3 [facility] Comment on above: Order Comment: Aaliyah gibson Type: BLOOD SPECIMENOrdering Facility: [facility] Address: [address] [place] [address] Performed By: #### 2 4323-8, 3084-1, 39362-0 ####[facility] [id number] [place] [address] [place] PHOSPHORUS INORGANICon 08-08 Phosphate [Mass/Vol] 4.1 mg/dL 2.7 - 4 .8 mg/dL [facility] PT panel Coag (PPP)on 2021 INR Coag (PPP) [Relative time] 1.0 {INR} Normal 0.9-1.3 [facility] Comment on above: Order Comment: Aaliyah gibson Type: BLOOD SPECIMENOrdering Facility: [facility] Address: [address] [place] [address] Result Comment: Constanza min K Antagonist (VKA) Therapeutic Range: INR 2 to 3 (Target INR of 2.5)Note: For patients treated with VKA drugs, such as warfarin, the [place] [employer] 2012 Guideline recommends [...] al. Chest 2012, 141:7S-47SCaitie RA, et al. [facility] 2017, 70: 252-289 Performed By: #### 3 4528-0, 18495-8 ####[facility] [id number] [address] [place] PT Coag (PPP) [Time] 10.7 s Normal 9.7-13.0 [facility] Comment on above: Order Comment: Speci men Type: BLOOD SPECIMENOrdering Facility: [facility] Address: [address] [place] [address] Performed By: #### 3 4528-0, 90775-1 ####[facility] [id number] [address] [place] INR Coag (PPP) [Relative time] 1.0 {INR} 0.9 - 1.3 [facility] PT Coag (PPP) [Time] 10.7 s 9.7 - 1 3.0 sec [facility] Phosphate [facility] 08-08 Phosphate [Mass/Vol] 4.1 mg/dL Normal 2.7-4.8 [facility] Comment on above: Order Comment: Speci men Type: BLOOD SPECIMENOrdering Facility: [facility] Address: [address] [phone] Performed By: #### 2 777-1 ####[facility] [id number] [address] [place] URIC ACID BLOODon 08-08-2021 Urate [Mass/Vol] 7.5 mg/dL 4.0 - 8.1 mg/dL [facility] Urate [facility] Urate [Mass/Vol] 7.5 mg/dL Normal 4.0-8.1 [facility] Comment on above: Order Comment: Speci men Type: BLOOD SPECIMENOrdering Facility: [facility] Address: [address] [place] [address] Performed By: #### 2 4323-8, 3084-1, 23598-6 ####[facility] [id number] [place] [address] [place] aPTT PPPon 08-08-2021 aPTT Coag (PPP) [Time] 29.9 s Normal 23.0-32.4 [facility] Comment on above: Order Comment: Speci men Type: BLOOD SPECIMENOrdering Facility: [facility] Address: [address] [place] [address] Performed By: #### 3 4528-0, 30651-9 ####[facility] [id number] [place] [address] [place] CBC W Auto Differential pane l (Bld)on 08-06-2021 Basophils (Bld) [#/Vol] 0.03 10*3/uL Normal <0.11 [facility] Comment on above: Order Comment: Speci men Type: BLOOD SPECIMENOrdering Facility: [facility] Address: [address] [place] [address] Performed By: #### 5 7021-8 ####[facility] [id number] [place] [address] [place] Basophils/100 WBC (Bld) 0.5 % Normal [facility] Comment on above: Order Comment: Speci men Type: BLOOD SPECIMENOrdering Facility: [facility] Address: [address] [place] [address] Performed By: #### 5 7021-8 ####[facility] [id number] [address] [place] Differential cell count method Nom (Bld) Auto Normal [facility] Comment on above: Order Comment: Speci men Type: BLOOD SPECIMENOrdering Facility: [facility] Address: [address] [place] [address] Performed By: #### 5 7021-8 ####[facility] [id number] [place] [address] [place] Eosinophils (Bld) [#/Vol] 0.05 10*3/uL Normal <0.46 [facility] Comment on above: Order Comment: Speci men Type: BLOOD SPECIMENOrdering Facility: [facility] Address: [address] [place] [address] Performed By: #### 5 7021-8 ####[facility] [id number] [place] [address] Eosinophils/100 WBC (Bld) 0.8 % Normal [facility] Comment on above: Order Comment: Speci men Type: BLOOD SPECIMENOrdering Facility: [facility] Address: [address] [place] [address] Performed By: #### 5 7021-8 ####[facility] [id number] [place] [address] [place] Erythrocyte distribution width (RBC) [Ratio] 15.7 % High 11.5-15.0 [facility] Comment on above: Order Comment: Speci men Type: BLOOD SPECIMENOrdering Facility: [facility] Address: [address] [place], [place] [address] Performed By: #### 5 7021-8 ####[facility] [id number] [place] [address] [place] Hematocrit (Bld) [Volume fraction] 43.7 % Normal 39.0-51.0 [facility] Comment on above: Order Comment: Speci men Type: BLOOD SPECIMENOrdering Facility: [facility] Address: [address] [place] [address] Performed By: #### 5 7021-8 ####[facility] [id number] [place] [address] [place] Hemoglobin (Bld) [Mass/Vol] 14.8 g/dL Normal 13.0-17.0 [facility] Comment on above: Order Comment: Speci men Type: BLOOD SPECIMENOrdering Facility: [facility] Address: [address] [place] [address] Performed By: #### 5 7021-8 ####[facility] [id number] [place] [address] [facility] IMMATURE GRAN % 0.5 % Normal [facility] Comment on above: Order Comment: Speci men Type: BLOOD SPECIMENOrdering Facility: [facility] Address: [address] [place] [address] Performed By: #### 5 7021-8 ####[facility] [id number] [address] STATES OF [facility] IMMATURE GRAN ABS 0.03 k/uL Normal <0.10 [facility] Comment on above: Order Comment: Speci men Type: BLOOD SPECIMENOrdering Facility: [facility] Address: [address] [place], [place] [address] Performed By: #### 5 7021-8 ####[facility] [id number] [place] [address] [place] Lymphocytes (Bld) [#/Vol] 1.42 10*3/uL Normal 1.00-4.00 [facility] Comment on above: Order Comment: Speci men Type: BLOOD SPECIMENOrdering Facility: [facility] Address: [address] [place] [address] Performed By: #### 5 7021-8 ####[facility] [id number] [address] STATES [facility] Lymphocytes/100 WBC (Bld) 23.2 % Normal [facility] Comment on above: Order Comment: Speci men Type: BLOOD SPECIMENOrdering Facility: [facility] Address: [address] [place] [address] Performed By: #### 5 7021-8 ####[facility] [id number] [address] MCH (RBC) [Entitic mass] 29.9 pg Normal 26.0-34.0 [facility] Comment on above: Order Comment: Speci men Type: BLOOD SPECIMENOrdering Facility: [facility] Address: [address] [place] [address] Performed By: #### 5 7021-8 ####[facility] [id number] [address] OF [place] MCHC (RBC) [Mass/Vol] 33.9 g/dL Normal 30.5-36.0 [facility] Comment on above: Order Comment: Speci men Type: BLOOD SPECIMENOrdering Facility: [facility] Address: [address] [place], [place] [address] Performed By: #### 5 7021-8 ####[facility] [id number] [address] [facility] MCV (RBC) [Entitic vol] 88.3 fL Normal 80.0-100.0 [facility] Comment on above: Order Comment: Speci men Type: BLOOD SPECIMENOrdering Facility: [facility] Address: [address] [place], [place] [address] Performed By: #### 5 7021-8 ####[facility] [id number] [address] [place] Monocytes (Bld) [#/Vol] 0.50 10*3/uL Normal <0.87 [facility] Comment on above: Order Comment: Speci men Type: BLOOD SPECIMENOrdering Facility: [facility] Address: [address] [place], [place] [address] Performed By: #### 5 7021-8 ####[facility] [id number] [place] [address] [place] Monocytes/100 WBC (Bld) 8.2 % Normal [facility] Comment on above: Order Comment: Speci men Type: BLOOD SPECIMENOrdering Facility: [facility] Address: [address] [place], [place] [address] Performed By: #### 5 7021-8 ####[facility] [id number] [place] [address] [place] Neutrophils (Bld) [#/Vol] 4.08 10*3/uL Normal 1.45-7.50 [facility] Comment on above: Order Comment: Speci men Type: BLOOD SPECIMENOrdering Facility: [facility] Address: [address] [place], [place] [address] Performed By: #### 5 7021-8 ####[facility] [id number] [place] [address] [facility] Neutrophils/100 WBC (Bld) 66.8 % Normal [facility] Comment on above: Order Comment: Speci men Type: BLOOD SPECIMENOrdering Facility: [facility] Address: [address] [place], [place] [address] Performed By: #### 5 7021-8 ####[facility] [id number] [place] [address] [place] Nucleated RBC (Bld) [#/Vol] 10*3/uL Normal <0.01 [facility] Comment on above: Order Comment: Speci men Type: BLOOD SPECIMENOrdering Facility: [facility] Address: [address] [place] [address] Performed By: #### 5 7021-8 ####[facility] [id number] [place] [address] [place] Nucleated RBC/100 WBC (Bld) [Ratio] 0.0 /100 WBC Normal [facility] Comment on above: Order Comment: Speci men Type: BLOOD SPECIMENOrdering Facility: [facility] Address: [address] [place] [address] Performed By: #### 5 7021-8 ####[facility] [id number] [place] [address] [place] Platelet mean volume (Bld) [Entitic vol] 10.2 fL Normal 9.0-12.7 [facility] Comment on above: Order Comment: Speci men Type: BLOOD SPECIMENOrdering Facility: [facility] Address: [address] [place] [address] Performed By: #### 5 7021-8 ####[facility] [id number] [place] [address] [place] Platelets (Bld) [#/Vol] 262 10*3/uL Normal 150-400 [facility] Comment on above: Order Comment: Speci men Type: BLOOD SPECIMENOrdering Facility: [facility] Address: [address] [place], [place] [address] Performed By: #### 5 7021-8 ####[facility] [id number] [place] [address] [place] RBC (Bld) [#/Vol] 4.95 10*6/uL Normal 4.20-6.00 [facility] Comment on above: Order Comment: Speci men Type: BLOOD SPECIMENOrdering Facility: [facility] Address: [address] [place], [place] [address] Performed By: #### 5 7021-8 ####[facility] [id number] [place] [address] [place] WBC (Bld) [#/Vol] 6.11 10*3/uL Normal 3.70-11.00 [facility] Comment on above: Order Comment: Speci men Type: BLOOD SPECIMENOrdering Facility: [facility] Address: [address] [place] [address] Performed By: #### 5 7021-8 ####[facility] [id number] [place] [address] [place] CNNURSEon 08-06-2021 CNNURSE [facility] CNOVSPon 08-06-2021 CNOVSP [facility] CT ABD/PEL W IVCONon 022 CT ABD/PEL W IVCON Normal [facility] Comprehensive metabolic 2000 panelon 08-06-2021 Albumin [Mass/Vol] 4.3 g/dL Normal 3.9-4.9 [facility] Comment on above: Order Comment: Speci men Type: BLOOD SPECIMENOrdering Facility: [facility] Address: [address] [place], [place] [address] Performed By: #### 2 4323-8, 3084-1, 39072-0 ####[facility] [id number] [place] [address] [facility] ALP [Catalytic activity/Vol] 64 U/L Normal 38-113 [facility] Comment on above: Order Comment: Speci men Type: BLOOD SPECIMENOrdering Facility: [facility] Address: [address] [place], [place] [address] Performed By: #### 2 4323-8, 3084-1, 06091-8 ####[facility] [id number] [place] [address] [facility] ALT [Catalytic activity/Vol] 52 U/L Normal 10-54 [facility] Comment on above: Order Comment: Speci men Type: BLOOD SPECIMENOrdering Facility: [facility] Address: [address] [place], [place] [address] Performed By: #### 2 4323-8, 3084-1, ####[facility] [id number] [place] [address] [place] Anion gap [Moles/Vol] 9 mmol/L Normal 9-18 [facility] Comment on above: Order Comment: Speci men Type: BLOOD SPECIMENOrdering Facility: [facility] Address: [address] [place] [address] Performed By: #### 2 4323-8, 3084-1, ####[facility] [id number] [place] [address] [place] AST [Catalytic activity/Vol] 46 U/L High 14-40 [facility] Comment on above: Order Comment: Speci men Type: BLOOD SPECIMENOrdering Facility: [facility] Address: [address] [place], [place] [address] Performed By: #### 2 4323-8, 3084-1, ####[facility] [id number] [place] [address] [place] Bilirubin [Mass/Vol] 0.3 mg/dL Normal 0.2-1.3 [facility] Comment on above: Order Comment: Speci men Type: BLOOD SPECIMENOrdering Facility: [facility] Address: [address] [place] [phone] Performed By: #### 2 4323-8, 3084-1, ####[facility] [id number] [address] [id number] [place] Calcium [Mass/Vol] 9.1 mg/dL Normal 8.5-10.2 [facility] Comment on above: Order Comment: Speci men Type: BLOOD SPECIMENOrdering Facility: [facility] Address: [address] [place] [address] Performed By: #### 2 4323-8, 3084-1, ####[facility] [id number] [place] [address] [place] Chloride [Moles/Vol] 107 mmol/L High 97-105 [facility] Comment on above: Order Comment: Speci men Type: BLOOD SPECIMENOrdering Facility: [facility] Address: [address] [place], [place] [phone] Performed By: #### 2 4323-8, 3084-1, ####[facility] [id number] [place] [address] [place] CO2 [Moles/Vol] 25 mmol/L Normal 22-30 [facility] Comment on above: Order Comment: Speci men Type: BLOOD SPECIMENOrdering Facility: [facility] Address: [address] [place], [place] [address] Performed By: #### 2 4323-8, 3084-1, ####[facility] [id number] [place] [address] [place] Creatinine [Mass/Vol] 1.24 mg/dL High 0.73-1.22 [facility] Comment on above: Order Comment: Speci men Type: BLOOD SPECIMENOrdering Facility: [facility] Address: [address] [place], [place] [phone] Performed By: #### 2 4323-8, 308-1, ####[facility] [id number] [place] [address] [place] ESTIMATED GLOMERULAR FILTRATION RATE 68 mL/min/1.73m??? Normal >=60 [facility] Comment on above: Order Comment: Speci men Type: BLOOD SPECIMENOrdering Facility: [facility] Address: [address] [place], [place] [phone] Result Comment: Laurita mated Glomerular Filtration Rate [...] actual GFR. Performed By: #### 2 4323-8, 308-, ####[facility] [id number] [place] [address] [place] Glucose [Mass/Vol] 121 mg/dL High 74-99 [facility] Comment on above: Order Comment: Aaliyah gibson Type: BLOOD SPECIMENOrdering Facility: [facility] Address: [address] [phone] Result Comment: The [place] [employer] (ADA) provides guidance for cutoff [...] Standards of Medical Care in Diabetes 2016, [place] [employer]. Diabetes Care. 2016.39(Suppl 1). Performed By: #### 2 4323-8, 3083-03, ####[facility] [id number] [place] [address] [place] Potassium [Moles/Vol] 4.6 mmol/L Normal 3.7-5.1 [facility] Comment on above: Order Comment: Aaliyah gibson Type: BLOOD SPECIMENOrdering Facility: [facility] Address: [address] [phone] Performed By: #### 2 4323-8, 3084-, ####[facility] [id number] [place] [address] [place] Protein [Mass/Vol] 6.9 g/dL Normal 6.3-8.0 [facility] Comment on above: Order Comment: Speci men Type: BLOOD SPECIMENOrdering Facility: [facility] Address: [address] [place] [address] Performed By: #### 2 4323-8, 3084-1, ####[facility] [id number] [place] [address] [place] Sodium [Moles/Vol] 141 mmol/L Normal 136-144 [facility] Comment on above: Order Comment: Speci men Type: BLOOD SPECIMENOrdering Facility: [facility] Address: [address] [place] [address] Performed By: #### 2 4323-8, 3084-1, ####[facility] [id number] [place] [address] [place] Urea nitrogen [Mass/Vol] 20 mg/dL Normal 9-24 [facility] Comment on above: Order Comment: Speci men Type: BLOOD SPECIMENOrdering Facility: [facility] Address: [address] [place] [address] Performed By: #### 2 4323-8, 3084-1, ####[facility] [id number] [place] [address] [place] LDH SerPl-cCncon 08-06-2021 LDH [Catalytic activity/Vol] 260 U/L High 135-225 [facility] Comment on above: Order Comment: Speci men Type: BLOOD SPECIMENOrdering Facility: [facility] Address: [address] [place], [place] [address] Performed By: #### 2 532-0 ####[facility] [id number] [place] [address] [place] Magnesium SerPl-mCncon 08-06 Magnesium [Mass/Vol] 2.4 mg/dL High 1.7-2.3 [facility] Comment on above: Order Comment: Aaliyah paige Type: BLOOD SPECIMENOrdering Facility: [facility] Address: [address] [place] [address] Performed By: #### 2 4323-8, 3084-1, 14283-1 ####[facility] [id number] [place] [address] [place] PT panel Coag (PPP)on 2021 INR Coag (PPP) [Relative time] 1.0 {INR} Normal 0.9-1.3 [facility] Comment on above: Order Comment: Aaliyah gibson Type: BLOOD SPECIMENOrdering Facility: [facility] Address: [address] [place] [address] Result Comment: Constanza min K Antagonist (VKA) Therapeutic Range: INR 2 to 3 (Target INR of 2.5)Note: For patients treated with VKA drugs, such as warfarin, the [place] [employer] 2012 Guideline recommends [...] 70: 252-289 Performed By: #### 3 4528-0, 92127-6 ####[facility] [id number] [address] [place] PT Coag (PPP) [Time] 10.7 s Normal 9.7-13.0 [facility] Comment on above: Order Comment: Speci men Type: BLOOD SPECIMENOrdering Facility: [facility] Address: [address] [place] [address] Performed By: #### 3 4528-0, 96123-5 ####[facility] [id number] [place] [address] [place] Phosphate SerPl-mCncon 08-06 Phosphate [Mass/Vol] 3.8 mg/dL Normal 2.7-4.8 [facility] Comment on above: Order Comment: Speci men Type: BLOOD SPECIMENOrdering Facility: [facility] Address: [address] [place] [address] Performed By: #### 2 777-1 ####[facility] [id number] [place] [address] [place] T3 FREE BLDon 08-06-2021 Free T3 [Mass/Vol] 2.9 pg/mL Normal 2.3-4.1 [facility] Comment on above: Order Comment: Speci men Type: BLOOD SPECIMENOrdering Facility: [facility] Address: [address] [place] [address] Performed By: #### F T4, FREET3 ####[facility] [id number] [place] [address] [place] T4 FREE/FREE THYROXon 2021 Free T4 [Mass/Vol] 1.0 ng/dL Normal 0.9-1.7 [facility] Comment on above: Order Comment: Speci men Type: BLOOD SPECIMENOrdering Facility: [facility] Address: [address] [place] [address] Performed By: #### F T4, FREET3 ####[facility] [id number] [id number] [address] [place] TSH SerPl-aCncon 08-06-2021 TSH Qn 1.770 m[IU]/L Normal 0.270-4.20 0 [facility] Comment on above: Order Comment: Speci men Type: BLOOD SPECIMENOrdering Facility: [facility] Address: [address] [place] [address] Performed By: #### 3 016-3 ####[facility] [id number] [place] [address] [place] Urate SerPl-mCncon 2 Urate [Mass/Vol] 7.2 mg/dL Normal 4.0-8.1 [facility] Comment on above: Order Comment: Speci men Type: BLOOD SPECIMENOrdering Facility: [facility] Address: [address] [place] [address] Performed By: #### 2 4323-8, 3084-1, 52929-7 ####[facility] [id number] [place] aPTT PPPon 08-06-2021 aPTT Coag (PPP) [Time] 28.8 s Normal 23.0-32.4 [facility] Comment on above: Order Comment: Speci men Type: BLOOD SPECIMENOrdering Facility: [facility] Address: [address] [place] [address] Performed By: #### 3 4528-0, 84973-4 ####[facility] [id number] [place] [address] [place] CNPNon 08-03-2021 CNPN [facility] CNOVon 07-31-2021 CNOV [facility] CNOV [facility] NURSING PROGon 07-31-2021 NURSING PROG [facility] CNPNon 07-30-2021 CNPN [facility] CNPNon 07-29-2021 CNPN [facility] CNPNon 07-25-2021 CNPN [facility] CBC W Auto Differential pane l (Bld)on 07-24-2021 Basophils (Bld) [#/Vol] 0.04 10*3/uL Normal <0.11 [facility] Comment on above: Order Comment: Speci men Type: BLOOD SPECIMENOrdering Facility: [facility] Address: [address] [place] [address] Performed By: #### 5 7021-8 ####[facility] [id number] [place] [address] [place] Basophils/100 WBC (Bld) 0.3 % Normal [facility] Comment on above: Order Comment: Speci men Type: BLOOD SPECIMENOrdering Facility: [facility] Address: [address] [place] [address] Performed By: #### 5 7021-8 ####[facility] [id number] [place] [address] [facility] Differential cell count method Nom (Bld) Auto [facility] Comment on above: Order Comment: Speci men Type: BLOOD SPECIMENOrdering Facility: [facility] Address: [address] [place] [address] Performed By: #### 5 7021-8 ####[facility] [id number] [place] [address] [place] Eosinophils (Bld) [#/Vol] 10*3/uL Normal <0.46 [facility] Comment on above: Order Comment: Speci men Type: BLOOD SPECIMENOrdering Facility: [facility] Address: [address] [place] [address] Performed By: #### 5 7021-8 ####[facility] [id number] [place] [address] [place] Eosinophils/100 WBC (Bld) 0.1 % [facility] Comment on above: Order Comment: Speci men Type: BLOOD SPECIMENOrdering Facility: [facility] Address: [address] [place] [address] Performed By: #### 5 7021-8 ####[facility] [id number] [place] [address] Erythrocyte distribution width (RBC) [Ratio] 15.9 % High 11.5-15.0 [facility] Comment on above: Order Comment: Speci men Type: BLOOD SPECIMENOrdering Facility: [facility] Address: [address] [place], [place] [address] Performed By: #### 5 7021-8 ####[facility] [id number] [place] [address] [facility] Hematocrit (Bld) [Volume fraction] 43.2 % Normal 39.0-51.0 [facility] Comment on above: Order Comment: Speci men Type: BLOOD SPECIMENOrdering Facility: [facility] Address: [address] [place] [address] Performed By: #### 5 7021-8 ####[facility] [id number] [place] [address] [place] Hemoglobin (Bld) [Mass/Vol] 14.7 g/dL Normal 13.0-17.0 [facility] Comment on above: Order Comment: Speci men Type: BLOOD SPECIMENOrdering Facility: [facility] Address: [address] [place], [place] [address] Performed By: #### 5 7021-8 ####[facility] [id number] [address] [place] IMMATURE GRAN % 0.9 % [facility] Comment on above: Order Comment: Speci men Type: BLOOD SPECIMENOrdering Facility: [facility] Address: [address] [place] [address] Performed By: #### 5 7021-8 ####[facility] [id number] [place] [address] [place] IMMATURE GRAN ABS 0.10 k/uL High <0.10 [facility] Comment on above: Order Comment: Speci men Type: BLOOD SPECIMENOrdering Facility: [facility] Address: [address] [place] [address] Performed By: #### 5 7021-8 ####[facility] [id number] [place] [address] [place] Lymphocytes (Bld) [#/Vol] 2.16 10*3/uL Normal 1.00-4.00 [facility] Comment on above: Order Comment: Speci men Type: BLOOD SPECIMENOrdering Facility: [facility] Address: [address] [place] [address] Performed By: #### 5 7021-8 ####[facility] [id number] [place] [address] STATES [facility] Lymphocytes/100 WBC (Bld) 18.7 % [facility] Comment on above: Order Comment: Speci men Type: BLOOD SPECIMENOrdering Facility: [facility] Address: [address] [place] [address] Performed By: #### 5 7021-8 ####[facility] [id number] [place] [address] [place] MCH (RBC) [Entitic mass] 29.9 pg Normal 26.0-34.0 [facility] Comment on above: Order Comment: Speci men Type: BLOOD SPECIMENOrdering Facility: [facility] Address: [address] [place] [address] Performed By: #### 5 7021-8 ####[facility] [id number] [place] [address] [place] MCHC (RBC) [Mass/Vol] 34.0 g/dL Normal 30.5-36.0 [facility] Comment on above: Order Comment: Speci men Type: BLOOD SPECIMENOrdering Facility: [facility] Address: [address] [place] [address] Performed By: #### 5 7021-8 ####[facility] [id number] [place] [address] [place] MCV (RBC) [Entitic vol] 88.0 fL Normal 80.0-100.0 [facility] Comment on above: Order Comment: Speci men Type: BLOOD SPECIMENOrdering Facility: [facility] Address: [address] [place], [place] [address] Performed By: #### 5 7021-8 ####[facility] [id number] [place] [address] [place] Monocytes (Bld) [#/Vol] 0.79 10*3/uL Normal <0.87 [facility] Comment on above: Order Comment: Speci men Type: BLOOD SPECIMENOrdering Facility: [facility] Address: [address] [place] [address] Performed By: #### 5 7021-8 ####[facility] [id number] [address] [place] Monocytes/100 WBC (Bld) 6.8 % Normal [facility] Comment on above: Order Comment: Speci men Type: BLOOD SPECIMENOrdering Facility: [facility] Address: [address] [place] [address] Performed By: #### 5 7021-8 ####[facility] [id number] [place] [address] [place] Neutrophils (Bld) [#/Vol] 8.45 10*3/uL High 1.45-7.50 [facility] Comment on above: Order Comment: Speci men Type: BLOOD SPECIMENOrdering Facility: [facility] Address: [address] Performed By: #### 5 7021-8 ####[facility] [id number] [address] Neutrophils/100 WBC (Bld) 73.2 % [facility] Comment on above: Order Comment: Speci men Type: BLOOD SPECIMENOrdering Facility: [facility] Address: [address] [place], [place] [address] Performed By: #### 5 7021-8 ####[facility] [id number] [place] [address] [place] Nucleated RBC (Bld) [#/Vol] 10*3/uL Normal <0.01 [facility] Comment on above: Order Comment: Speci men Type: BLOOD SPECIMENOrdering Facility: [facility] Address: [address] [place] [address] Performed By: #### 5 7021-8 ####[facility] [id number] [place] [address] [place] Nucleated RBC/100 WBC (Bld) [Ratio] 0.0 /100 WBC [facility] Comment on above: Order Comment: Speci men Type: BLOOD SPECIMENOrdering Facility: [facility] Address: [address] [place], [place] [address] Performed By: #### 5 7021-8 ####[facility] [id number] [address] STATES [place] Platelet mean volume (Bld) [Entitic vol] 10.5 fL Normal 9.0-12.7 [facility] Comment on above: Order Comment: Speci men Type: BLOOD SPECIMENOrdering Facility: [facility] Address: [address] [place], [place] [address] Performed By: #### 5 7021-8 ####[facility] [id number] [place] [address] [place] Platelets (Bld) [#/Vol] 241 10*3/uL Normal 150-400 [facility] Comment on above: Order Comment: Speci men Type: BLOOD SPECIMENOrdering Facility: [facility] Address: [address] [place] [address] Performed By: #### 5 7021-8 ####[facility] [id number] [place] [address] [place] RBC (Bld) [#/Vol] 4.91 10*6/uL Normal 4.20-6.00 [facility] Comment on above: Order Comment: Speci men Type: BLOOD SPECIMENOrdering Facility: [facility] Address: [address] [place] [address] Performed By: #### 5 7021-8 ####[facility] [id number] [place] [address] [place] WBC (Bld) [#/Vol] 11.55 10*3/uL High 3.70-11.00 [facility] Comment on above: Order Comment: Speci men Type: BLOOD SPECIMENOrdering Facility: [facility] Address: [address] [place] [address] Performed By: #### 5 7021-8 ####[facility] [id number] [place] [address] [place] CNNURSEon 07-24-2021 CNNURSE [facility] CNOVSPon 07-24-2021 CNOVSP [facility] CNPNon 07-24-2021 CNPN [facility] Comprehensive metabolic 2000 panelon 07-24-2021 Albumin [Mass/Vol] 4.0 g/dL Normal 3.9-4.9 [facility] Comment on above: Order Comment: Speci men Type: BLOOD SPECIMENOrdering Facility: [facility] Address: [address] [place] [address] Performed By: #### 2 4323-8, 42544-9, 4- ####[facility] LABCLIA [id number] [place] [address] [place] ALP [Catalytic activity/Vol] 64 U/L Normal 38-113 [facility] Comment on above: Order Comment: Speci men Type: BLOOD SPECIMENOrdering Facility: [facility] Address: [address] [place], [place] [address] Performed By: #### 2 4323-8, 72901-1, 3083- ####[facility] LABIA [id number] [address] [place] ALT [Catalytic activity/Vol] 36 U/L Normal 10-54 [facility] Comment on above: Order Comment: Speci men Type: BLOOD SPECIMENOrdering Facility: [facility] Address: [address] [place] [address] Performed By: #### 2 4323-8, , 3083- ####[facility] LABIA [id number] [place] [address] [place] Anion gap [Moles/Vol] 11 mmol/L Normal 9-18 [facility] Comment on above: Order Comment: Speci men Type: BLOOD SPECIMENOrdering Facility: [facility] Address: [address] [place] [address] Performed By: #### 2 4323-8, , 3083- ####[facility] LABIA [id number] [place] [address] [place] AST [Catalytic activity/Vol] 25 U/L Normal 14-40 [facility] Comment on above: Order Comment: Speci men Type: BLOOD SPECIMENOrdering Facility: [facility] Address: [address] [place], [place] [address] Result Comment: Resu lts may be falsely increased due to interference from hemolysis. Suggest reorder as clinically indicated. Performed By: #### 2 4323-8, 11407-8, 4- ####[facility] LABCLIA [id number] [address] [address] [place] Bilirubin [Mass/Vol] 0.2 mg/dL Normal 0.2-1.3 [facility] Comment on above: Order Comment: Speci men Type: BLOOD SPECIMENOrdering Facility: [facility] Address: [address] [place], [place] [address] Performed By: #### 2 4323-8, 27949-7, 3083- ####[facility] LABCLIA [id number] [place] [address] [place] Calcium [Mass/Vol] 9.2 mg/dL Normal 8.5-10.2 [facility] Comment on above: Order Comment: Speci men Type: BLOOD SPECIMENOrdering Facility: [facility] Address: [address] [place], [place] [address] Performed By: #### 2 4323-8, , 3083- ####[facility] LABIA [id number] [place] [address] [place] Chloride [Moles/Vol] 104 mmol/L Normal 97-105 [facility] Comment on above: Order Comment: Speci men Type: BLOOD SPECIMENOrdering Facility: [facility] Address: [address] [place], [place] [address] Performed By: #### 2 4323-8, 07087-3, 3083- ####[facility] LABIA [id number] [place] [id number] [place] CO2 [Moles/Vol] 26 mmol/L Normal 22-30 [facility] Comment on above: Order Comment: Speci men Type: BLOOD SPECIMENOrdering Facility: [facility] Address: [address] [place] [address] Performed By: #### 2 4323-8, 94649-9, 3083-03 ####[facility] LABCLIA [id number] [place] [address] [place] Creatinine [Mass/Vol] 1.03 mg/dL Normal 0.73-1.22 [facility] Comment on above: Order Comment: Aaliyah gibson Type: BLOOD SPECIMENOrdering Facility: [facility] Address: [address] [place] [address] Performed By: #### 2 4323-8, 91635-1, 3083-03 ####[facility] LABIA [id number] [place] [address] [place] ESTIMATED GLOMERULAR FILTRATION RATE 85 mL/min/1.73m??? Normal >=60 [facility] Comment on above: Order Comment: Aaliyah gibson Type: BLOOD SPECIMENOrdering Facility: [facility] Address: [address] [place] [address] Result Comment: Laurita mated Glomerular Filtration Rate [...] actual GFR. Performed By: #### 2 4323-8, 57913-9, 3083-03 ####[facility] LABIA [id number] [place] [address] [place] Glucose [Mass/Vol] 103 mg/dL High 74-99 [facility] Comment on above: Order Comment: Aaliyah gibson Type: BLOOD SPECIMENOrdering Facility: [facility] Address: [address] [place] [address] Result Comment: The [place] [employer] (ADA) provides guidance for cutoff [...] Standards of Medical Care in Diabetes 2016, [place] [employer]. Diabetes Care. 2016.39(Suppl 1). Performed By: #### 2 4323-8, , 3083-03 ####[facility] LABCLIA [id number] [place] [address] [place] Potassium [Moles/Vol] 4.1 mmol/L Normal 3.7-5.1 [facility] Comment on above: Order Comment: Speci men Type: BLOOD SPECIMENOrdering Facility: [facility] Address: [address] [place] [address] Performed By: #### 2 4323-8, , 3083-03 ####[facility] LABCLIA [id number] [place] [address] [place] Protein [Mass/Vol] 6.6 g/dL Normal 6.3-8.0 [facility] Comment on above: Order Comment: Speci men Type: BLOOD SPECIMENOrdering Facility: [facility] Address: [address] [place] [address] Performed By: #### 2 4323-8, , 3083-03 ####[facility] LABCLIA [id number] [place] [id number] [place] Sodium [Moles/Vol] 141 mmol/L Normal 136-144 [facility] Comment on above: Order Comment: Speci men Type: BLOOD SPECIMENOrdering Facility: [facility] Address: [address] [place], [place] [address] Performed By: #### 2 4323-8, , 3083-03 ####[facility] LABCLIA [id number] [place] [address] [place] Urea nitrogen [Mass/Vol] 22 mg/dL Normal 9-24 [facility] Comment on above: Order Comment: Speci men Type: BLOOD SPECIMENOrdering Facility: [facility] Address: [address] [place] [address] Performed By: #### 2 4323-8, 82318-7, 3084-1 ####[facility] [id number] [place] [address] [place] LDH SerPl-cCncon 07-24-2021 LDH [Catalytic activity/Vol] 217 U/L Normal 135-225 [facility] Comment on above: Order Comment: Speci men Type: BLOOD SPECIMENOrdering Facility: [facility] Address: [address] [place] [address] Performed By: #### 2 532-0 ####[facility] [id number] [place] [address] [place] Magnesium SerPl-mCncon 07-24 Magnesium [Mass/Vol] 2.3 mg/dL Normal 1.7-2.3 [facility] Comment on above: Order Comment: Speci men Type: BLOOD SPECIMENOrdering Facility: [facility] Address: [address] [place] [address] Performed By: #### 2 4323-8, 21945-7, 3084-1 ####[facility] [id number] [place] [address] [place] PT panel Coag (PPP)on 2021 INR Coag (PPP) [Relative time] 1.0 {INR} Normal 0.9-1.3 [facility] Comment on above: Order Comment: Speci men Type: BLOOD SPECIMENOrdering Facility: [facility] Address: [address] [place], [place] [address] Result Comment: Constanza min K Antagonist (VKA) Therapeutic Range: INR 2 to 3 (Target INR of 2.5)Note: For patients treated with VKA drugs, such as warfarin, the [place] [employer] 2012 Guideline recommends [...] al. Chest 2012, 141:7S-47SNishnini RA, et al. [facility] 2017, 70: 252-289 Performed By: #### 3 4528-0, 92923-2 ####[facility] [id number] [place] [address] [place] PT Coag (PPP) [Time] 10.5 s Normal 9.7-13.0 [facility] Comment on above: Order Comment: Speci men Type: BLOOD SPECIMENOrdering Facility: [facility] Address: [address] [place] [address] Performed By: #### 3 4528-0, 67892-0 ####[facility] [id number] [place] [address] [place] Phosphate SerPl-mCncon 07-24 Phosphate [Mass/Vol] 3.1 mg/dL Normal 2.7-4.8 [facility] Comment on above: Order Comment: Speci men Type: BLOOD SPECIMENOrdering Facility: [facility] Address: [address] [place] [address] Performed By: #### 2 777-1 ####[facility] LABIA [id number] [place] [address] [place] Urate SerPl-mCncon Urate [Mass/Vol] 6.4 mg/dL Normal 4.0-8.1 [facility] Comment on above: Order Comment: Speci men Type: BLOOD SPECIMENOrdering Facility: [facility] Address: [address] [place] [address] Performed By: #### 2 4323-8, 41472-4, 3084-1 ####[facility] [id number] [place] [address] [place] aPTT PPPon 07-24-2021 aPTT Coag (PPP) [Time] 27.5 s Normal 23.0-32.4 Cl [facility] Comment on above: Order Comment: Speci men Type: BLOOD SPECIMENOrdering Facility: [facility] Address: [address] [place] [address] Performed By: #### 3 4528-0, 26477-2 ####[facility] [id number] [place] [address] [place] CNPNon 07-23-2021 CNPN [facility] ACTIVATED PTTon 07-21-2021 aPTT Coag (PPP) [Time] 29.1 s 23.0 - 32.4 sec [facility] CBC W Auto Differential pane l (Bld)on 07-21-2021 Basophils (Bld) [#/Vol] 0.04 10*3/uL Normal <0.11 [facility] Comment on above: Order Comment: Speci men Type: BLOOD SPECIMENOrdering Facility: [facility] Address: [address] [place], [place] [address] Performed By: #### 5 7021-8 ####[facility] [id number] [address] STATES OF [place] Basophils/100 WBC (Bld) 0.5 % Normal [facility] Comment on above: Order Comment: Speci men Type: BLOOD SPECIMENOrdering Facility: [facility] Address: [address] [place] [address] Performed By: #### 5 7021-8 ####[facility] [id number] [place] [address] Differential cell count method Nom (Bld) Auto [facility] Comment on above: Order Comment: Speci men Type: BLOOD SPECIMENOrdering Facility: [facility] Address: [address] [place] [address] Performed By: #### 5 7021-8 ####[facility] [place] [id number] [place] [address] [place] Eosinophils (Bld) [#/Vol] 0.05 10*3/uL Normal <0.46 [facility] Comment on above: Order Comment: Speci men Type: BLOOD SPECIMENOrdering Facility: [facility] Address: [address] [place] [address] Performed By: #### 5 7021-8 ####[facility] [place] [id number] [place] [address] Eosinophils/100 WBC (Bld) 0.7 % [facility] Comment on above: Order Comment: Speci men Type: BLOOD SPECIMENOrdering Facility: [facility] Address: [address] [place], [place] [address] Performed By: #### 5 7021-8 ####[facility] [place] [id number] [place] [address] STATES [facility] Erythrocyte distribution width (RBC) [Ratio] 15.5 % High 11.5-15.0 [facility] Comment on above: Order Comment: Speci men Type: BLOOD SPECIMENOrdering Facility: [facility] Address: [address] [place] [address] Performed By: #### 5 7021-8 ####[facility] [place] [facility] [id number] [facility] Hematocrit (Bld) [Volume fraction] 45.5 % Normal 39.0-51.0 [facility] Comment on above: Order Comment: Speci men Type: BLOOD SPECIMENOrdering Facility: [facility] Address: [address] [place] [address] Performed By: #### 5 7021-8 ####[facility] [id number] [place] [address] [facility] Hemoglobin (Bld) [Mass/Vol] 15.1 g/dL Normal 13.0-17.0 [facility] Comment on above: Order Comment: Speci men Type: BLOOD SPECIMENOrdering Facility: [facility] Address: [address] [place] [address] Performed By: #### 5 7021-8 ####[facility] [id number] [place] [address] [facility] IMMATURE GRAN % 0.8 % [facility] Comment on above: Order Comment: Speci men Type: BLOOD SPECIMENOrdering Facility: [facility] Address: [address] [place] [address] Performed By: #### 5 7021-8 ####[facility] [id number] [place] [address] IMMATURE GRAN ABS 0.06 k/uL Normal <0.10 [facility] Comment on above: Order Comment: Speci men Type: BLOOD SPECIMENOrdering Facility: [facility] Address: [address] [place] [address] Performed By: #### 5 7021-8 ####[facility] [id number] [place] [address] OF POP Lymphocytes (Bld) [#/Vol] 2.22 10*3/uL Normal 1.00-4.00 [facility] Comment on above: Order Comment: Speci men Type: BLOOD SPECIMENOrdering Facility: [facility] Address: [address] [place] [address] Performed By: #### 5 7021-8 ####[facility] [place] [id number] [place] [address] Lymphocytes/100 WBC (Bld) 28.9 % [facility] Comment on above: Order Comment: Speci men Type: BLOOD SPECIMENOrdering Facility: [facility] Address: [address] [place], [place] [address] Performed By: #### 5 7021-8 ####[facility] [id number] [place] [address] [place] MCH (RBC) [Entitic mass] 30.1 pg Normal 26.0-34.0 [facility] Comment on above: Order Comment: Speci men Type: BLOOD SPECIMENOrdering Facility: [facility] Address: [address] [place], [place] [address] Performed By: #### 5 7021-8 ####[facility] [id number] [place] [address] [facility] MCHC (RBC) [Mass/Vol] 33.2 g/dL Normal 30.5-36.0 [facility] Comment on above: Order Comment: Speci men Type: BLOOD SPECIMENOrdering Facility: [facility] Address: [address] [place] [address] Performed By: #### 5 7021-8 ####[facility] [id number] [place] [address] [facility] MCV (RBC) [Entitic vol] 90.6 fL Normal 80.0-100.0 [facility] Comment on above: Order Comment: Speci men Type: BLOOD SPECIMENOrdering Facility: [facility] Address: [address] [place], [place] [id number] Performed By: #### 5 7021-8 ####[facility] [id number] [place] [address] [place] Monocytes (Bld) [#/Vol] 0.52 10*3/uL Normal <0.87 [facility] Comment on above: Order Comment: Speci men Type: BLOOD SPECIMENOrdering Facility: [facility] Address: [address] [place] [address] Performed By: #### 5 7021-8 ####[facility] [id number] [place] [address] [place] Monocytes/100 WBC (Bld) 6.8 % Normal [facility] Comment on above: Order Comment: Speci men Type: BLOOD SPECIMENOrdering Facility: [facility] Address: [address] [place] [address] Performed By: #### 5 7021-8 ####[facility] [id number] [place] [address] [place] Neutrophils (Bld) [#/Vol] 4.79 10*3/uL Normal 1.45-7.50 [facility] Comment on above: Order Comment: Speci men Type: BLOOD SPECIMENOrdering Facility: [facility] Address: [address] [place] [address] Performed By: #### 5 7021-8 ####[facility] [id number] [place] [address] [place] Neutrophils/100 WBC (Bld) 62.3 % [facility] Comment on above: Order Comment: Speci men Type: BLOOD SPECIMENOrdering Facility: [facility] Address: [address] [place], [place] [address] Performed By: #### 5 7021-8 ####[facility] [id number] [place] [address] [place] Nucleated RBC (Bld) [#/Vol] 10*3/uL Normal <0.01 [facility] Comment on above: Order Comment: Speci men Type: BLOOD SPECIMENOrdering Facility: [facility] Address: [address] [place], [place] [address] Performed By: #### 5 7021-8 ####[facility] [id number] [place] [address] [place] Nucleated RBC/100 WBC (Bld) [Ratio] 0.0 /100 WBC [facility] Comment on above: Order Comment: Speci men Type: BLOOD SPECIMENOrdering Facility: [facility] Address: [address] [place], [place] [address] Performed By: #### 5 7021-8 ####[facility] [id number] [place] [address] [place] Platelet mean volume (Bld) [Entitic vol] 10.8 fL Normal 9.0-12.7 [facility] Comment on above: Order Comment: Speci men Type: BLOOD SPECIMENOrdering Facility: [facility] Address: [address] [place], [place] [address] Performed By: #### 5 7021-8 ####[facility] [id number] [place] [address] [place] Platelets (Bld) [#/Vol] 245 10*3/uL Normal 150-400 [facility] Comment on above: Order Comment: Speci men Type: BLOOD SPECIMENOrdering Facility: [facility] Address: [address] [place] [address] Performed By: #### 5 7021-8 ####[facility] [id number] [place] [address] [place] RBC (Bld) [#/Vol] 5.02 10*6/uL Normal 4.20-6.00 [facility] Comment on above: Order Comment: Speci men Type: BLOOD SPECIMENOrdering Facility: [facility] Address: [address] [place] [address] Performed By: #### 5 7021-8 ####[facility] [id number] [address] WBC (Bld) [#/Vol] 7.68 10*3/uL Normal 3.70-11.00 [facility] Comment on above: Order Comment: Speci men Type: BLOOD SPECIMENOrdering Facility: [facility] Address: [address] [place] [address] Performed By: #### 5 7021-8 ####[facility] [id number] [place] [address] [place] Abs Immature Gran 0.06 k/uL <0.10 k/uL [facility] Basophils (Bld) [#/Vol] 0.04 10*3/uL <0.11 k/uL [facility] Basophils/100 WBC (Bld) 0.5 % [facility] Differential cell count method Nom (Bld) Auto [facility] Eosinophils (Bld) [#/Vol] 0.05 10*3/uL <0.46 k/uL [facility] Eosinophils/100 WBC (Bld) 0.7 % [facility] Erythrocyte distribution width (RBC) [Ratio] 15.5 % High 11.5 - 15.0 % [facility] Hematocrit (Bld) [Volume fraction] 45.5 % 39.0 - 51.0 % [facility] Hemoglobin (Bld) [Mass/Vol] 15.1 g/dL 13.0 - 17.0 g/dL [facility] Immature Gran % 0.8 % [facility] Lymphocytes (Bld) [#/Vol] 2.22 10*3/uL 1.00 - 4.00 k/uL [facility] Lymphocytes/100 WBC (Bld) 28.9 % [facility] MCH (RBC) [Entitic mass] 30.1 pg 26.0 - 34.0 pg [facility] MCHC (RBC) [Mass/Vol] 33.2 g/dL 30.5 - 36.0 g/dL [facility] MCV (RBC) [Entitic vol] 90.6 fL 80.0 - 100.0 fL [facility] Monocytes (Bld) [#/Vol] 0.52 10*3/uL <0.87 k/uL [facility] Monocytes/100 WBC (Bld) 6.8 % C [facility] Neutrophils (Bld) [#/Vol] 4.79 10*3/uL 1.45 - 7.50 k/uL [facility] Neutrophils/100 WBC (Bld) 62.3 % [facility] Nucleated RBC (Bld) [#/Vol] 10*3/uL <0.01 k/uL [facility] Nucleated RBC/100 WBC (Bld) [Ratio] 0.0 /100 WBC [facility] Platelet mean volume (Bld) [Entitic vol] 10.8 fL 9.0 - 12.7 fL [facility] Platelets (Bld) [#/Vol] 245 10*3/uL 150 - 400 k/uL [facility] RBC (Bld) [#/Vol] 5.02 10*6/uL 4.20 - 6.00 m/uL [facility] WBC (Bld) [#/Vol] 7.68 10*3/uL 3.70 - 11.00 k/uL [facility] CNNURSEon 07-21-2021 CNNURSE [facility] CNPNon 07-21-2021 CNPN [facility] CT CHEST W IVCONon 2 CT CHEST W IVCON Normal [facility] Comprehensive metabolic 2000 panelon 07-21-2021 Albumin [Mass/Vol] 4.0 g/dL Normal 3.9-4.9 [facility] Comment on above: Order Comment: Speci men Type: BLOOD SPECIMENOrdering Facility: [facility] Address: [address] [place], [place] [address] Performed By: #### 1 9123-9, 22482-2, 3084-1 ####[facility] [id number] [address] [place] ALP [Catalytic activity/Vol] 57 U/L Normal 38-113 [facility] Comment on above: Order Comment: Speci men Type: BLOOD SPECIMENOrdering Facility: [facility] Address: [address] [place], [place] [address] Performed By: #### 1 9123-9, 98884-4, 3083-1 ####[facility] [id number] [place] [address] [place] ALT [Catalytic activity/Vol] 26 U/L Normal 10-54 [facility] Comment on above: Order Comment: Speci men Type: BLOOD SPECIMENOrdering Facility: [facility] Address: [address] [place] [address] Performed By: #### 1 9123-9, 19793-4, 3083-1 ####[facility] [id number] [place] [address] [place] Anion gap [Moles/Vol] 10 mmol/L Normal 9-18 [facility] Comment on above: Order Comment: Speci men Type: BLOOD SPECIMENOrdering Facility: [facility] Address: [address] [place] [address] Performed By: #### 1 9123-9, 00444-9, 3083- ####[facility] [id number] [address] [place] AST [Catalytic activity/Vol] 18 U/L Normal 14-40 [facility] Comment on above: Order Comment: Speci men Type: BLOOD SPECIMENOrdering Facility: [facility] Address: [address] [place], [place] [address] Performed By: #### 1 9123-9, 48372-6, 3084-1 ####[facility] [id number] [place] [address] [place] Bilirubin [Mass/Vol] 0.5 mg/dL Normal 0.2-1.3 [facility] Comment on above: Order Comment: Speci men Type: BLOOD SPECIMENOrdering Facility: [facility] Address: [address] [place], [place] [address] Performed By: #### 1 9123-9, 68710-9, 3084-1 ####[facility] [id number] [place] [address] [place] Calcium [Mass/Vol] 9.4 mg/dL Normal 8.5-10.2 [facility] Comment on above: Order Comment: Speci men Type: BLOOD SPECIMENOrdering Facility: [facility] Address: [address] [place] [address] Performed By: #### 1 9123-9, 59010-3, 3084-1 ####[facility] [id number] [place] [address] [place] Chloride [Moles/Vol] 102 mmol/L Normal 97-105 [facility] Comment on above: Order Comment: Speci men Type: BLOOD SPECIMENOrdering Facility: [facility] Address: [address] [place], [place] [address] Performed By: #### 1 9123-9, 28731-9, 3084-1 ####[facility] [id number] [place] [address] [place] CO2 [Moles/Vol] 28 mmol/L Normal 22-30 [facility] Comment on above: Order Comment: Speci men Type: BLOOD SPECIMENOrdering Facility: [facility] Address: [address] [place] [address] Performed By: #### 1 9123-9, 70890-7, 3084-1 ####[facility] [id number] [place] [address] [place] Creatinine [Mass/Vol] 1.12 mg/dL Normal 0.73-1.22 [facility] Comment on above: Order Comment: Speci men Type: BLOOD SPECIMENOrdering Facility: [facility] Address: [address] [place] [address] Performed By: #### 1 9123-9, 82886-2, 308- ####[facility] [id number] [address] [place] ESTIMATED GLOMERULAR FILTRATION RATE 77 mL/min/1.73m??? Normal >=60 [facility] Comment on above: Order Comment: Aaliyah gibson Type: BLOOD SPECIMENOrdering Facility: [facility] Address: [address] [place] [address] Result Comment: Laurita mated Glomerular Filtration Rate [...] actual GFR. Performed By: #### 1 9123-9, 11318-1, 3083-03 ####[facility] [id number] [place] [address] [place] Glucose [Mass/Vol] 114 mg/dL High 74-99 [facility] Comment on above: Order Comment: Aaliyah gibson Type: BLOOD SPECIMENOrdering Facility: [facility] Address: [address] [place] [address] Result Comment: The [place] [employer] (ADA) provides guidance for cutoff [...] Standards of Medical Care in Diabetes 2016, [place] [employer]. Diabetes Care. 2016.39(Suppl 1). Performed By: #### 1 9123-9, 73960-9, 3083-03 ####[facility] [id number] [place] [address] [place] Potassium [Moles/Vol] 3.5 mmol/L Low 3.7-5.1 [facility] Comment on above: Order Comment: Speci men Type: BLOOD SPECIMENOrdering Facility: [facility] Address: [address] [place], [place] [address] Performed By: #### 1 23-9, 28571-1, 3083- ####[facility] [id number] [place] [address] [place] Protein [Mass/Vol] 6.8 g/dL Normal 6.3-8.0 [facility] Comment on above: Order Comment: Speci men Type: BLOOD SPECIMENOrdering Facility: [facility] Address: [address] [place] [address] Performed By: #### 1 23-9, 81719-2, 3083-03 ####[facility] [id number] [place] [address] [place] Sodium [Moles/Vol] 140 mmol/L Normal 136-144 [facility] Comment on above: Order Comment: Speci men Type: BLOOD SPECIMENOrdering Facility: [facility] Address: [address] [place], [place] [address] Performed By: #### 1 23-9, 97110-6, 3083- ####[facility] [id number] [place] [address] [place] Urea nitrogen [Mass/Vol] 20 mg/dL Normal 9-24 [facility] Comment on above: Order Comment: Speci men Type: BLOOD SPECIMENOrdering Facility: [facility] Address: [address] [place], [place] [address] Performed By: #### 1 23-9, 90709-6, 3083-1 ####[facility] [id number] [place] [address] [place] Albumin [Mass/Vol] 4.0 g/dL 3.9 - 4.9 g/dL [facility] ALP [Catalytic activity/Vol] 57 U/L 38 - 113 U/L [facility] ALT [Catalytic activity/Vol] 26 U/L 10 - 54 U/L [facility] Anion gap [Moles/Vol] 10 mmol/L 9 - 18 mmol/L [facility] AST [Catalytic activity/Vol] 18 U/L 14 - 40 U/L [facility] Bilirubin [Mass/Vol] 0.5 mg/dL 0.2 - 1 .3 mg/dL [facility] Calcium [Mass/Vol] 9.4 mg/dL 8.5 - 10. 2 mg/dL [facility] Chloride [Moles/Vol] 102 mmol/L 97 - 10 5 mmol/L [facility] CO2 [Moles/Vol] 28 mmol/L 22 - 30 mmol/L [facility] Creatinine [Mass/Vol] 1.12 mg/dL 0.73 - 1.22 mg/dL [facility] Estimated Glomerular Filtration Rate 77 mL/min/1.73m >=60 mL/min/1.7 3m [facility] Glucose [Mass/Vol] 114 mg/dL High 74 - 99 mg/dL [facility] Potassium [Moles/Vol] 3.5 mmol/L Low 3.7 - 5.1 mmol/L [facility] Protein [Mass/Vol] 6.8 g/dL 6.3 - 8.0 g/dL [facility] Sodium [Moles/Vol] 140 mmol/L 136 - 144 mmol/L [facility] Urea nitrogen [Mass/Vol] 20 mg/dL 9 - 24 mg/dL [facility] LD LACTATE DEHYDROon 022 LDH [Catalytic activity/Vol] 201 U/L 135 - 225 U/L [facility] LDH SerPl-cCncon 07-21-2021 LDH [Catalytic activity/Vol] 201 U/L Normal 135-225 [facility] Comment on above: Order Comment: Speci men Type: BLOOD SPECIMENOrdering Facility: [facility] Address: [address] [place], [place] [address] Performed By: #### 2 532-0 ####[facility] [id number] [address] [place] OF [facility] MAGNESIUM BLDon 07-21-2021 Magnesium [Mass/Vol] 2.1 mg/dL 1.7 - 2 .3 mg/dL [facility] MRI BRAIN WO/W IVCONon 07-21 MRI BRAIN WO/W IVCON Normal [facility] Magnesium SerPl-mCncon 07-21 Magnesium [Mass/Vol] 2.1 mg/dL Normal 1.7-2.3 [facility] Comment on above: Order Comment: Aaliyah gibson Type: BLOOD SPECIMENOrdering Facility: [facility] Address: [address] [place] [address] Performed By: #### 1 9123-9, 46689-3, 3084-1 ####[facility] [id number] [address] STATES OF [facility] PHOSPHORUS INORGANICon 07-21 Phosphate [Mass/Vol] 3.9 mg/dL 2.7 - 4 .8 mg/dL [facility] PT panel Coag (PPP)on 2021 INR Coag (PPP) [Relative time] 1.0 {INR} Normal 0.9-1.3 [facility] Comment on above: Order Comment: Aaliyah gibson Type: BLOOD SPECIMENOrdering Facility: [facility] Address: [address] [place], [place] [address] Result Comment: Constanza min K Antagonist (VKA) Therapeutic Range: INR 2 to 3 (Target INR of 2.5)Note: For patients treated with VKA drugs, such as warfarin, the [place] [employer] 2012 Guideline recommends [...] al. Chest 2012, 141:7S-47SNishimura RA, et al. [facility] 2017, 70: 252-289 Performed By: #### 3 4528-0, 00965-4 ####[facility] [id number] [address] [place] PT Coag (PPP) [Time] 10.9 s Normal 9.7-13.0 [facility] Comment on above: Order Comment: Speci men Type: BLOOD SPECIMENOrdering Facility: [facility] Address: [address] [place] [address] Performed By: #### 3 4528-0, 69331-0 ####[facility] [id number] [address] [place] INR Coag (PPP) [Relative time] 1.0 {INR} 0.9 - 1.3 [facility] PT Coag (PPP) [Time] 10.9 s 9.7 - 1 3.0 sec [facility] Phosphate SerPl-mCncon 07-21 Phosphate [Mass/Vol] 3.9 mg/dL Normal 2.7-4.8 [facility] Comment on above: Order Comment: Speci men Type: BLOOD SPECIMENOrdering Facility: [facility] Address: [address] [place] [address] Performed By: #### 2 777-1 ####[facility] [id number] [place] [address] [place] T3 FREE BLDon 07-21-2021 Free T3 [Mass/Vol] 2.8 pg/mL Normal 2.3-4.1 [facility] Comment on above: Order Comment: Speci men Type: BLOOD SPECIMENOrdering Facility: [facility] Address: [address] [place] [address] Performed By: #### F T4, FREET3 ####[facility] [id number] [place] [address] [place] T4 FREE/FREE THYROXon 2021 Free T4 [Mass/Vol] 1.1 ng/dL Normal 0.9-1.7 [facility] Comment on above: Order Comment: Speci men Type: BLOOD SPECIMENOrdering Facility: [facility] Address: [address] [place] [address] Performed By: #### F T4, FREET3 ####[facility] [id number] [place] [address] [place] TSH BLDon 07-21-2021 TSH Qn 2.120 m[IU]/L 0.270 - 4.200 mIU/L [facility] TSH SerPl-aCncon 07-21-2021 TSH Qn 2.120 m[IU]/L Normal 0.270-4.20 0 [facility] Comment on above: Order Comment: Speci men Type: BLOOD SPECIMENOrdering Facility: [facility] Address: [address] [place] [phone] Performed By: #### 3 016-3 ####[facility] [id number] [place] [address] [place] URIC ACID BLOODon 07-21-2021 Urate [Mass/Vol] 8.3 mg/dL High 4.0 - 8.1 mg/dL [facility] Urate SerPl-mCncon Urate [Mass/Vol] 8.3 mg/dL High 4.0-8.1 [facility] Comment on above: Order Comment: Speci men Type: BLOOD SPECIMENOrdering Facility: [facility] Address: [address] [place], [place] [address] Performed By: #### 1 9123-9, 06028-2, 3084-1 ####[facility] [id number] [place] [address] [place] aPTT PPPon 07-21-2021 aPTT Coag (PPP) [Time] 29.1 s Normal 23.0-32.4 [facility] Comment on above: Order Comment: Speci men Type: BLOOD SPECIMENOrdering Facility: [facility] Address: [address] [place], [place] [phone] Performed By: #### 3 4528-0, 51106-3 ####[facility] LABCLIA [id number] [place] [address] [place] CNOVSPon 07-15-2021 CNOVSP [facility] MRI KIDNEY WO/W IVCONon 05-1 MRI KIDNEY WO/W IVCON Invalid Interpretation Code [facility] CNOVSPon 07-14-2021 CNOVSP [facility] CNPNon 07-11-2021 CNPN [facility] CNNURSEon 07-08-2021 CNNURSE [facility] CNPNon 07-07-2021 CNPN [facility] CNOVSPon 07-02-2021 CNOVSP [facility] BRIEF OP NOTon 07-01-2021 BRIEF OP NOT [facility] CT BIOPSY CHEST WALLon 07-01 CT BIOPSY CHEST WALL Normal [facility] HISTORY PHYSICALon HISTORY PHYSICAL Normal [facility] NURSING PROGon 07-01-2021 NURSING PROG [facility] PT EDon 07-01-2021 PT ED [facility] SURGICAL PATHOLOGYon 022 CASE REPORT [facility] Comment on above: Order Comment: Speci men Type: TISSUE SPECIMENOrdering Facility: [facility] Address: [address] [place], [place] [phone] Result Comment: Surg ical Pathology Report Case: [id number] Provider: Anne-Marie Chaparro MD Collected: 07/01/2021 08:31 AMOrdering Location: [facility] Received: 07/01/2021 01:44 PMPathologist: LAVINIA Hatchpecimen: SOFT TISSUE MASS BIOPSY, right chest wall mass - 4 passes, 4 cores Performed By: #### S ####[facility] LABCLIA [id number] [address] CLINICAL HISTORY right renal mass wit h right chest wall mass [facility] Comment on above: Order Comment: Speci men Type: TISSUE SPECIMENOrdering Facility: [facility] Address: [address] [place] [address] Performed By: #### S ####[facility] LABCLIA [id number] [address] DIAGNOSIS COMMENT Normal [facility] Comment on above: Order Comment: Speci men Type: TISSUE SPECIMENOrdering Facility: [facility] Address: [address] [place] [address] Result Comment: Tumo r cells are strongly and diffusely positive for PAX-8, CAM 5.2 and CA9. The overall morphology and immunoprofile support the above diagnosis.Laboratory Developed Test (LDT) Disclaimer:Performance characteristics of immunohistochemical, immunofluorescent and chromogenic in-situ hybridization tests have been determined by the performing laboratory within [facility]???s Cipriano Leal [facility] Pathology and Laboratory Medicine [place] ([facility], [facility], [facility] or [facility]) in a manner consistent with CLIA requirements. One or more of these tests have not been cleared or approved by the FDA. [facility] is regulated under CLIA as qualified to perform high-complexity testing. These tests are used for clinical purposes. They should not be regarded as investigational or for research. Positive and negative controls stain appropriately. Performed By: #### S ####[facility] LABCLIA [id number] [address] FINAL DIAGNOSIS [facility] Comment on above: Order Comment: Speci men Type: TISSUE SPECIMENOrdering Facility: [facility] Address: [address] [place] [address] Result Comment: A. S oft tissue, right chest wall mass, core needle biopsy:- Metastatic renal cell carcinoma, clear cell type. See comment.CHRISTIANO/TERA/hi 07/04/2021 Performed By: #### S ####[facility] LABCLIA [id number] [address] [facility] FINAL PERFORMING LAB Normal [facility] Comment on above: Order Comment: Speci men Type: TISSUE SPECIMENOrdering Facility: [facility] Address: [address] [place] [address] Result Comment: Diag nostic interpretation performed at [facility], [address] [place] [address] CLIA# [id number] Director: Russ Madera M.D. Performed By: #### S ####[facility] LABIA [id number] [address] GROSS DESCRIPTION Normal [facility] Comment on above: Order Comment: Speci men Type: TISSUE SPECIMENOrdering Facility: [facility] Address: [address] [place] [address] Result Comment: A. S OFT TISSUE MASS BIOPSY.Received in formalin are multiple segments of cylindrical tissue 1.0 x 0.2 x 0.1 cm, short-red and of a friable consistency. Totally submitted in one cassette.HMM July 01, 2021 5:56 PMGross examination performed at [facility], [address] [place] [address] Performed By: #### S ####[facility] LABIA [id number] [address] [place] NM BONE WHOLE BODYon 022 NM BONE WHOLE BODY Normal [facility] PT panel Coag (PPP)on 2021 INR Coag (PPP) [Relative time] 1.0 {INR} Normal 0.9-1.3 [facility] Comment on above: Order Comment: Aaliyah gibson Type: BLOOD SPECIMENOrdering Facility: [facility] Address: [address] [place] [phone] Result Comment: Constanza min K Antagonist (VKA) Therapeutic Range: INR 2 to 3 (Target INR of 2.5)Note: For patients treated with VKA drugs, such as warfarin, the [place] [employer] 2012 Guideline recommends [...] al. Chest 2012, 141:7S-47SNishimura RA, et al. [facility] 2017, 70: 252-289 Performed By: #### 3 4528-0 ####[facility] [id number] [place] [address] [place] PT Coag (PPP) [Time] 10.5 s Normal 9.7-13.0 [facility] Comment on above: Order Comment: Aaliyah gibson Type: BLOOD SPECIMENOrdering Facility: [facility] Address: [address] [place] [address] [place] [address] Performed By: #### 3 4528-0 ####[facility]UN[facility] [id number] [place] [address] [place] CT ABD/PEL W IVCONon 022 CT ABD/PEL W IVCON Normal [facility] NURSING PROGon 06-25-2021 NURSING PROG [facility] CNOVon 06-23-2021 CNOV [facility] CNPNon 06-23-2021 CNPN [facility] CNPTOUTREACHon 06-23-2021 CNPTOUTREACH [facility] URINALYSIS, REFLEX MICROSCOP ICon 06-23-2021 Bilirubin Ql (U) Negative Negative [facility] Clarity (Unsp spec) Clear Clear [facility] Color (U) Yellow Yellow [facility] Glucose Test strip (U) [Mass/Vol] Negative Negative [facility] Hemoglobin Ql (U) Negative Negative [facility] Ketones Ql (U) Negative Negative [facility] Leukocyte esterase Test strip Ql (U) Negative Negative [facility] Nitrite Ql (U) Negative Negative [facility] pH (U) 6.5 [pH] 5.0 - 8.0 [facility] Protein (U) [Mass/Vol] Trace Abnormal Negative [facility] Specific gravity (U) [Rel density] 1.013 1.005 - 1.030 [facility] Urobilinogen Ql (U) Negative Negative [facility] Bilirubin Ql (U) Negative Normal Negative [facility] Comment on above: Order Comment: Speci men Type: URINE SPECIMENOrdering Facility: [facility] Address: [address] [place] [address] Performed By: #### L [id number] ####[facility] Q7CLIA [id number] [address] [place] Clarity (Unsp spec) Clear Normal Clear [facility] Comment on above: Order Comment: Speci men Type: URINE SPECIMENOrdering Facility: [facility] Address: [address] [place] [address] Performed By: #### L [id number] ####[facility] Q7CLIA [id number] [address] [place] Color (U) Yellow Normal [facility] Comment on above: Order Comment: Speci men Type: URINE SPECIMENOrdering Facility: [facility] Address: [address] [place] [address] Performed By: #### L [id number] ####[facility] Q7CLIA [id number] [address] Glucose Test strip (U) [Mass/Vol] Negative Normal [facility] Comment on above: Order Comment: Speci men Type: URINE SPECIMENOrdering Facility: [facility] Address: [address] [place], [place] [address] Performed By: #### L [id number] ####[facility] Q7CLIA [id number] [place] [address] [place] Hemoglobin Ql (U) Negative Normal Negative [facility] Comment on above: Order Comment: Speci men Type: URINE SPECIMENOrdering Facility: [facility] Address: [address] [place] [address] Performed By: #### L [id number] ####[facility] Q7CLIA [id number] [address] [place] Ketones Ql (U) Negative Normal [facility] Comment on above: Order Comment: Speci men Type: URINE SPECIMENOrdering Facility: [facility] Address: [address] [place], [place] [address] Performed By: #### L [id number] ####[facility] Q7CLIA [id number] [address] [place] [facility] Leukocyte esterase Test strip Ql (U) Negative Normal Negative [facility] Comment on above: Order Comment: Speci men Type: URINE SPECIMENOrdering Facility: [facility] Address: [address] [place] [address] Performed By: #### L [id number] ####[facility] Q7CLIA [id number] [place] [address] [place] Nitrite Ql (U) Negative Normal [facility] Comment on above: Order Comment: Speci men Type: URINE SPECIMENOrdering Facility: [facility] Address: [address] [place], [place] [address] Performed By: #### L [id number] ####[facility] Q7CLIA [id number] [address] pH (U) 6.5 [pH] Normal 5.0-8.0 [facility] Comment on above: Order Comment: Speci men Type: URINE SPECIMENOrdering Facility: [facility] Address: [address] [place] [address] Performed By: #### L [id number] ####[facility] Q7CLIA [id number] [address] Protein (U) [Mass/Vol] Trace Abnormal Negative [facility] Comment on above: Order Comment: Speci men Type: URINE SPECIMENOrdering Facility: [facility] Address: [address] [place] [address] Performed By: #### L [id number] ####[facility] Q7CLIA [id number] [address] Specific gravity (U) [Rel density] 1.013 Normal 1.005-1.03 0 [facility] Comment on above: Order Comment: Speci men Type: URINE SPECIMENOrdering Facility: [facility] Address: [address] [place] [address] Performed By: #### L [id number] ####[facility] Q7CLIA [id number] [address] Urobilinogen Ql (U) Negative Normal Negative [facility] Comment on above: Order Comment: Speci men Type: URINE SPECIMENOrdering Facility: [facility] Address: [address] [place] [address] Performed By: #### L [id number] ####[facility] Q7CLIA [id number] [address] [place] CBC W Auto Differential pane l (Bld)on 06-20-2021 Basophils (Bld) [#/Vol] 0.03 10*3/uL Normal <0.11 [facility] Comment on above: Order Comment: Speci men Type: BLOOD SPECIMENOrdering Facility: [facility] Address: [address] [place], [place] [address] Performed By: #### 5 7021-8 ####[facility] LABCLIA [id number] [address] [place] Basophils/100 WBC (Bld) 0.4 % Normal [facility] Comment on above: Order Comment: Speci men Type: BLOOD SPECIMENOrdering Facility: [facility] Address: [address] [place], [place] [address] Performed By: #### 5 7021-8 ####[facility] LABCLIA [id number] [place] [address] [place] Differential cell count method Nom (Bld) Auto [facility] Comment on above: Order Comment: Speci men Type: BLOOD SPECIMENOrdering Facility: [facility] Address: [address] [place], [place] [address] Performed By: #### 5 7021-8 ####[facility] LABCLIA [id number] [place] [address] [place] Eosinophils (Bld) [#/Vol] 10*3/uL Normal <0.46 [facility] Comment on above: Order Comment: Speci men Type: BLOOD SPECIMENOrdering Facility: [facility] Address: [address] [place], [place] [address] Performed By: #### 5 7021-8 ####[facility] LABCLIA [id number] [address] [place] Eosinophils/100 WBC (Bld) 0.3 % [facility] Comment on above: Order Comment: Speci men Type: BLOOD SPECIMENOrdering Facility: [facility] Address: [address] [place], [place] [address] Performed By: #### 5 7021-8 ####[facility] LABCLIA [id number] [address] [place] Erythrocyte distribution width (RBC) [Ratio] 14.8 % Normal 11.5-15.0 [facility] Comment on above: Order Comment: Speci men Type: BLOOD SPECIMENOrdering Facility: [facility] Address: [address] [place] [address] Performed By: #### 5 7021-8 ####[facility] LABIA [id number] [address] [place] Hematocrit (Bld) [Volume fraction] 48.7 % Normal 39.0-51.0 [facility] Comment on above: Order Comment: Speci men Type: BLOOD SPECIMENOrdering Facility: [facility] Address: [address] [place] [address] Performed By: #### 5 7021-8 ####[facility] LABIA [id number] [address] [place] Hemoglobin (Bld) [Mass/Vol] 15.6 g/dL Normal 13.0-17.0 [facility] Comment on above: Order Comment: Speci men Type: BLOOD SPECIMENOrdering Facility: [facility] Address: [address] [place] [address] Performed By: #### 5 7021-8 ####[facility] LABIA [id number] [address] [place] IMMATURE GRAN % 0.3 % [facility] Comment on above: Order Comment: Speci men Type: BLOOD SPECIMENOrdering Facility: [facility] Address: [address] [place], [place] [address] Performed By: #### 5 7021-8 ####[facility] LABIA [id number] [address] [place] IMMATURE GRAN ABS <0.03 Normal <0.10 [facility] Comment on above: Order Comment: Speci men Type: BLOOD SPECIMENOrdering Facility: [facility] Address: [address] [place], [place] [address] Performed By: #### 5 7021-8 ####[facility] LABCLIA [id number] [address] [place] Lymphocytes (Bld) [#/Vol] 1.78 10*3/uL Normal 1.00-4.00 [facility] Comment on above: Order Comment: Speci men Type: BLOOD SPECIMENOrdering Facility: [facility] Address: [address] [place], [place] [address] Performed By: #### 5 7021-8 ####[facility] LABCLIA [id number] [address] [place] Lymphocytes/100 WBC (Bld) 26.6 % [facility] Comment on above: Order Comment: Speci men Type: BLOOD SPECIMENOrdering Facility: [facility] Address: [address] [place], [place] [address] Performed By: #### 5 7021-8 ####[facility] LABIA [id number] [place] [address] [place] MCH (RBC) [Entitic mass] 29.4 pg Normal 26.0-34.0 [facility] Comment on above: Order Comment: Speci men Type: BLOOD SPECIMENOrdering Facility: [facility] Address: [address] [place] [phone] Performed By: #### 5 7021-8 ####[facility] LABCLIA [id number] [place] [address] [place] MCHC (RBC) [Mass/Vol] 32.0 g/dL Normal 30.5-36.0 [facility] Comment on above: Order Comment: Speci men Type: BLOOD SPECIMENOrdering Facility: [facility] Address: [address] [place] [address] Performed By: #### 5 7021-8 ####[facility] LABCLIA [id number] [place] [address] [place] MCV (RBC) [Entitic vol] 91.9 fL Normal 80.0-100.0 [facility] Comment on above: Order Comment: Speci men Type: BLOOD SPECIMENOrdering Facility: [facility] Address: [address] [place], [place] [address] Performed By: #### 5 7021-8 ####[facility] LABIA [id number] [place] [address] [place] Monocytes (Bld) [#/Vol] 0.51 10*3/uL Normal <0.87 [facility] Comment on above: Order Comment: Speci men Type: BLOOD SPECIMENOrdering Facility: [facility] Address: [address] [place] [address] Performed By: #### 5 7021-8 ####[facility] LABIA [id number] [place] [address] [place] Monocytes/100 WBC (Bld) 7.6 % Normal [facility] Comment on above: Order Comment: Speci men Type: BLOOD SPECIMENOrdering Facility: [facility] Address: [address] [place], [place] [address] Performed By: #### 5 7021-8 ####[facility] LABIA [id number] [place] [address] [place] Neutrophils (Bld) [#/Vol] 4.34 10*3/uL Normal 1.45-7.50 [facility] Comment on above: Order Comment: Speci men Type: BLOOD SPECIMENOrdering Facility: [facility] Address: [address] [place], [place] [address] Performed By: #### 5 7021-8 ####[facility] LABIA [id number] [place] [address] [place] Neutrophils/100 WBC (Bld) 64.8 % [facility] Comment on above: Order Comment: Speci men Type: BLOOD SPECIMENOrdering Facility: [facility] Address: [address] [place] [address] Performed By: #### 5 7021-8 ####[facility] LABIA [id number] [place] [address] [place] Nucleated RBC (Bld) [#/Vol] 10*3/uL Normal <0.01 [facility] Comment on above: Order Comment: Speci men Type: BLOOD SPECIMENOrdering Facility: [facility] Address: [address] [place], [place] [address] Performed By: #### 5 7021-8 ####[facility] LABIA [id number] [place] [address] [place] Nucleated RBC/100 WBC (Bld) [Ratio] 0.0 /100 WBC [facility] Comment on above: Order Comment: Speci men Type: BLOOD SPECIMENOrdering Facility: [facility] Address: [address] [place], [place] [address] Performed By: #### 5 7021-8 ####[facility] LABIA [id number] [place] [address] [place] Platelet mean volume (Bld) [Entitic vol] 11.0 fL Normal 9.0-12.7 [facility] Comment on above: Order Comment: Speci men Type: BLOOD SPECIMENOrdering Facility: [facility] Address: [address] [place] [address] Performed By: #### 5 7021-8 ####[facility] LABIA [id number] [place] [address] [place] Platelets (Bld) [#/Vol] 268 10*3/uL Normal 150-400 [facility] Comment on above: Order Comment: Speci men Type: BLOOD SPECIMENOrdering Facility: [facility] Address: [address] [place], [place] [address] Performed By: #### 5 7021-8 ####[facility] LABIA [id number] [place] [address] [place] RBC (Bld) [#/Vol] 5.30 10*6/uL Normal 4.20-6.00 [facility] Comment on above: Order Comment: Speci men Type: BLOOD SPECIMENOrdering Facility: [facility] Address: [address] [place], [place] [address] Performed By: #### 5 7021-8 ####[facility] LABIA [id number] [place] [address] [place] WBC (Bld) [#/Vol] 6.70 10*3/uL Normal 3.70-11.00 [facility] Comment on above: Order Comment: Speci men Type: BLOOD SPECIMENOrdering Facility: [facility] Address: [address] [place], [place] [address] Performed By: #### 5 7021-8 ####[facility] [id number] [place] [address] [place] CNOVon 06-20-2021 CNOV [facility] Comprehensive metabolic 2000 panelon 06-20-2021 Albumin [Mass/Vol] 4.2 g/dL Normal 3.9-4.9 [facility] Comment on above: Order Comment: Speci men Type: BLOOD SPECIMENOrdering Facility: [facility] Address: [address] [place], [place] [address] Performed By: #### 2 4323-8 ####[facility] LABUNIV[facility] [id number] [place] [address] [place] ALP [Catalytic activity/Vol] 52 U/L Normal 38-113 [facility] Comment on above: Order Comment: Speci men Type: BLOOD SPECIMENOrdering Facility: [facility] Address: [address] [place] [phone] Performed By: #### 2 4323-8 ####[facility] LABCLIA [id number] [place] [address] [place] ALT [Catalytic activity/Vol] 17 U/L Normal 10-54 [facility] Comment on above: Order Comment: Speci men Type: BLOOD SPECIMENOrdering Facility: [facility] Address: [address] [place], [place] [address] Performed By: #### 2 4323-8 ####[facility] LABCLIA [id number] [place] [address] [place] Anion gap [Moles/Vol] 12 mmol/L Normal 9-18 [facility] Comment on above: Order Comment: Speci men Type: BLOOD SPECIMENOrdering Facility: [facility] Address: [address] [place], [place] [address] Performed By: #### 2 4323-8 ####[facility] LABCLIA [id number] [place] [address] [place] AST [Catalytic activity/Vol] 18 U/L Normal 14-40 [facility] Comment on above: Order Comment: Speci men Type: BLOOD SPECIMENOrdering Facility: [facility] Address: [address] [place], [place] [address] Performed By: #### 2 4323-8 ####[facility] LABCLIA [id number] [place] [address] [place] Bilirubin [Mass/Vol] 0.5 mg/dL Normal 0.2-1.3 [facility] Comment on above: Order Comment: Speci men Type: BLOOD SPECIMENOrdering Facility: [facility] Address: [address] [place], [place] [address] Performed By: #### 2 4323-8 ####[facility] LABCLIA [id number] [place] [address] [place] Calcium [Mass/Vol] 9.8 mg/dL Normal 8.5-10.2 [facility] Comment on above: Order Comment: Speci men Type: BLOOD SPECIMENOrdering Facility: [facility] Address: [address] [place], [place] [address] Performed By: #### 2 4323-8 ####[facility] LABCLIA [id number] [place] [address] [place] Chloride [Moles/Vol] 101 mmol/L Normal 97-105 [facility] Comment on above: Order Comment: Speci men Type: BLOOD SPECIMENOrdering Facility: [facility] Address: [address] [place], [place] [address] Performed By: #### 2 4323-8 ####[facility] LABCLIA [id number] [place] [address] [place] CO2 [Moles/Vol] 28 mmol/L Normal 22-30 [facility] Comment on above: Order Comment: Speci men Type: BLOOD SPECIMENOrdering Facility: [facility] Address: [address] [place], [place] [address] Performed By: #### 2 4323-8 ####[facility] LABCLIA [id number] [place] [address] [place] Creatinine [Mass/Vol] 1.12 mg/dL Normal 0.73-1.22 [facility] Comment on above: Order Comment: Speci men Type: BLOOD SPECIMENOrdering Facility: [facility] Address: [address] [place], [place] [address] Performed By: #### 2 4323-8 ####[facility] LABCLIA [id number] [place] [address] [place] ESTIMATED GLOMERULAR FILTRATION RATE 77 mL/min/1.73m??? Normal >=60 [facility] Comment on above: Order Comment: Speci men Type: BLOOD SPECIMENOrdering Facility: [facility] Address: [address] [phone] Result Comment: Laurita mated Glomerular Filtration Rate [...] actual GFR. Performed By: #### 2 4323-8 ####[facility] LABCLIA [id number] [place] [address] [place] Glucose [Mass/Vol] 87 mg/dL Normal 74-99 [facility] Comment on above: Order Comment: Aaliyah gibson Type: BLOOD SPECIMENOrdering Facility: [facility] Address: [address] [place] [address] Result Comment: The [place] [employer] (ADA) provides guidance for cutoff [...] Standards of Medical Care in Diabetes 2016, [place] [employer]. Diabetes Care. 2016.39(Suppl 1). Performed By: #### 2 4323-8 ####[facility] LABCLIA [id number] [place] [address] [place] Potassium [Moles/Vol] 3.8 mmol/L Normal 3.7-5.1 [facility] Comment on above: Order Comment: Aaliyah gibson Type: BLOOD SPECIMENOrdering Facility: [facility] Address: [address] [phone] Performed By: #### 2 4323-8 ####[facility] LABCLIA [id number] [place] [address] [place] Protein [Mass/Vol] 7.3 g/dL Normal 6.3-8.0 [facility] Comment on above: Order Comment: Speci men Type: BLOOD SPECIMENOrdering Facility: [facility] Address: [address] [place] [address] Performed By: #### 2 4323-8 ####[facility] LABIA [id number] [place] [address] [place] Sodium [Moles/Vol] 141 mmol/L Normal 136-144 [facility] Comment on above: Order Comment: Speci men Type: BLOOD SPECIMENOrdering Facility: [facility] Address: [address] [place] [address] Performed By: #### 2 4323-8 ####[facility] LABCLIA [id number] [place] [address] [place] Urea nitrogen [Mass/Vol] 12 mg/dL Normal 9-24 [facility] Comment on above: Order Comment: Speci men Type: BLOOD SPECIMENOrdering Facility: [facility] Address: [address] [place] [address] Performed By: #### 2 4323-8 ####[facility] LABIA [id number] [place] [address] [place] ALC ETHANOLon 06-19-2021 ALC ETHANOL < 3.0 Normal <10.0 [facility] Comment on above: Order Comment: CONSE RVATION Result Comment: UNCO NFIRMED Toxicology results. For MEDICAL purposes only. Performed By: #### L 500.03413, L500.23429, L500.77834 ####Test performed at: [facility] [address] [place] [address] ALT SerPl w P-5'-P-cCncOrder ed By: Siri Harris on 06-19-2021 ALT With P-5'-P [Catalytic activity/Vol] 23 U/L 13-61 [facility] AST SerPl w P-5'-P-cCncOrder ed By: Siri Harris on 06-19-2021 AST With P-5'-P [Catalytic activity/Vol] 16 U/L 15-37 [facility] Albumin SerPl-mCncOrdered By : Siri Harris on 06-19-2021 Albumin [Mass/Vol] 3.4 g/dL 3.4-5.0 [facility] BUN SerPl-mCncOrdered By: Natty Harris on 06-19-2021 Urea nitrogen [Mass/Vol] 16 mg/dL 7-18 [facility] Basophils Auto (Bld) [#/Vol] Ordered By: Siri Harris on 06-19-2021 Basophils (Bld) [#/Vol] 0.0 10*3/uL 0.0-0.2 [facility] Basophils/100 WBC Auto (Bld) Ordered By: Siri Harris on 06-19-2021 Basophils/100 WBC (Bld) 0.5 % [facility] CBC W/DIFFon 06-19-2021 BASO ABS 0.0 K/uL Normal 0.0-0.2 [facility] Comment on above: Order Comment: CONSE RVATION Performed By: #### L 200.43108 #### Test performed at: [address] [address] Basophils/100 WBC (Bld) 0.5 % Normal [facility] Comment on above: Order Comment: CONSE RVATION Performed By: #### L 200.03930 #### Test performed at: [address] [address] EOS ABS 0.1 K/uL Normal 0.0-0.5 [facility] Comment on above: Order Comment: CONSE RVATION Performed By: #### L 200.18533 #### Test performed at: [address], [place] [address] Eosinophils/100 WBC (Bld) 0.6 % Normal [facility] Comment on above: Order Comment: CONSE RVATION Performed By: #### L 200.40418 #### Test performed at: [address] [address] Erythrocyte distribution width (RBC) [Ratio] 14.8 % High 11.5-14.5 [facility] Comment on above: Order Comment: CONSE RVATION Performed By: #### L 200.14935 #### Test performed at: [address] [address] Hematocrit (Bld) [Volume fraction] 43.8 % Normal 39.0-55.0 [facility] Comment on above: Order Comment: CONSE RVATION Performed By: #### L 200.91734 #### Test performed at: [address] [address] Hemoglobin (Bld) [Mass/Vol] 14.9 g/dL Normal 14.0-16.5 [facility] Comment on above: Order Comment: CONSE RVATION Performed By: #### L 200.28143 #### Test performed at: [address] [address] IG % 0.4 % Normal [facility] Comment on above: Order Comment: CONSE RVATION Performed By: #### L 200.35397 #### Test performed at: [address] [address] IG ABS 0.03 K/uL Normal 0-0.05 [facility] Comment on above: Order Comment: CONSE RVATION Performed By: #### L 200.99355 #### Test performed at: [address] [address] Lymphocytes (Bld) [#/Vol] 2.0 10*3/uL Normal 1.2-3.5 [facility] Comment on above: Order Comment: CONSE RVATION Performed By: #### L 200.09317 #### Test performed at: [address] [address] Lymphocytes/100 WBC (Bld) 25.2 % Normal [facility] Comment on above: Order Comment: CONSE RVATION Performed By: #### L 200.66311 #### Test performed at: [address] [address] MCH (RBC) [Entitic mass] 30.2 pg Normal 25.4-34.6 [facility] Comment on above: Order Comment: CONSE RVATION Performed By: #### L 200.14015 #### Test performed at: [address] [address] MCHC (RBC) [Mass/Vol] 34.0 g/dL Normal 31.5-36.5 [facility] Comment on above: Order Comment: CONSE RVATION Performed By: #### L 200.44521 #### Test performed at: [address] [address] MCV (RBC) [Entitic vol] 88.7 fL Normal 80.0-100.0 [facility] Comment on above: Order Comment: CONSE RVATION Performed By: #### L 200.60037 #### Test performed at: [address] [address] MONO ABS 0.7 K/uL Normal 0.0-1.0 [facility] Comment on above: Order Comment: CONSE RVATION Performed By: #### L 200.51853 #### Test performed at: [address] [address] Monocytes/100 WBC (Bld) 9.4 % Normal [facility] Comment on above: Order Comment: CONSE RVATION Performed By: #### L 200.09602 #### Test performed at: [address] [address] NEUTROPHIL ABS 4.9 K/uL Normal 1.4-6.6 [facility] Comment on above: Order Comment: CONSE RVATION Performed By: #### L 200.45998 #### Test performed at: [address] [address] Neutrophils/100 WBC (Bld) 63.9 % Normal [facility] Comment on above: Order Comment: CONSE RVATION Performed By: #### L 200.58890 #### Test performed at: [address] [address] NRBC # 0.000 K/uL Normal 0-0.012 [facility] Comment on above: Order Comment: CONSE RVATION Performed By: #### L 200.12734 #### Test performed at: [address] [address] NRBC % 0.0 /100 WBC Normal 0-0.2 [facility] Comment on above: Order Comment: CONSE RVATION Performed By: #### L 200.11730 #### Test performed at: [address] [address] Platelet mean volume (Bld) [Entitic vol] 10.1 fL Normal 8.7-12.4 [facility] Comment on above: Order Comment: CONSE RVATION Performed By: #### L 200.71781 #### Test performed at: [address] [address] Platelets (Bld) [#/Vol] 245 10*3/uL Normal 140-440 [facility] Comment on above: Order Comment: CONSE RVATION Performed By: #### L 200.72566 #### Test performed at: [address] [address] RBC (Bld) [#/Vol] 4.94 10*6/uL Normal 3.5-5.5 [facility] Comment on above: Order Comment: CONSE RVATION Performed By: #### L 200.11451 #### Test performed at: [address] [address] WBC (Bld) [#/Vol] 7.7 10*3/uL Normal 3.9-11.0 [facility] Comment on above: Order Comment: CONSE RVATION Performed By: #### L 200.89328 #### Test performed at: [address] [address] CO2 SerPl-sCncOrdered By: Natty Harris on 06-19-2021 CO2 [Moles/Vol] 29 mmol/L 21-32 [facility] COMP META PANELon 06-19-2021 Albumin [Mass/Vol] 3.4 g/dL Normal 3.4-5.0 [facility] Comment on above: Order Comment: CONSE RVATION Performed By: #### L 500.89419, L500.81719, L500.48311 #### Test performed at: [address] [address] ALK PHOS TOTAL 58 U/L Normal 45-117 [facility] Comment on above: Order Comment: CONSE RVATION Performed By: #### L 500.84000, L500.43371, L500.26848 #### Test performed at: [address] [address] ALT [Catalytic activity/Vol] 23 U/L Normal 13-61 [facility] Comment on above: Order Comment: CONSE RVATION Performed By: #### L 500.75639, L500.45429, L500.00871 #### Test performed at: [address] [address] AST [Catalytic activity/Vol] 16 U/L Normal 15-37 [facility] Comment on above: Order Comment: CONSE RVATION Performed By: #### L 500.81827, L500.27123, L500.55614 #### Test performed at: [address] [address] BILI TOTAL 0.4 mg/dL Normal 0.2-1.0 [facility] Comment on above: Order Comment: CONSE RVATION Performed By: #### L 500.28587, L500.93085, L500.81015 #### Test performed at: [address] [address] Calcium [Mass/Vol] 9.0 mg/dL Normal 8.5-10.1 [facility] Comment on above: Order Comment: CONSE RVATION Performed By: #### L 500.39485, L500.96642, L500.05081 #### Test performed at: [address] [address] Chloride [Moles/Vol] 107 mmol/L Normal 98-107 [facility] Comment on above: Order Comment: CONSE RVATION Performed By: #### L 500.29823, L500.46259, L500.59986 #### Test performed at: [address] [address] CO2 [Moles/Vol] 29 mmol/L Normal 21-32 [facility] Comment on above: Order Comment: CONSE RVATION Performed By: #### L 500.66310, L500.24487, L500.03882 #### Test performed at: [address] [address] Creatinine [Mass/Vol] 1.290 mg/dL Normal 0.700- 1.30 0 [facility] Comment on above: Order Comment: CONSE RVATION Performed By: #### L 500.45432, L500.87816, L500.40534 #### Test performed at: [address] [address] Glucose [Mass/Vol] 91 mg/dL Normal 70-99 [facility] Comment on above: Order Comment: CONSE RVATION Result Comment: Fast ing GLUCOSE reference range has been updated per (ADA) [place] [employer]'s recommendation. 05/31/2018 Performed By: #### L 500.28114, L500.94596, L500.34765 #### Test performed at: [address] [address] Potassium [Moles/Vol] 3.5 mmol/L Normal 3.5-5.1 [facility] Comment on above: Order Comment: CONSE RVATION Performed By: #### L 500.72886, L500.00634, L500.73631 #### Test performed at: [address] [address] Protein [Mass/Vol] 6.9 g/dL Normal 6.4-8.2 [facility] Comment on above: Order Comment: CONSE RVATION Performed By: #### L 500.97146, L500.48191, L500.98740 #### Test performed at: [address] [address] Sodium [Moles/Vol] 140 mmol/L Normal 136-145 [facility] Comment on above: Order Comment: CONSE RVATION Performed By: #### L 500.03046, L500.09920, L500.40687 #### Test performed at: [address] [address] Urea nitrogen [Mass/Vol] 16 mg/dL Normal 7-18 [facility] Comment on above: Order Comment: CONSE RVATION Performed By: #### L 500.28908, L500.64784, L500.69705 #### Test performed at: [address] [address] [address] ANG THORAX WCON PE PROTOC OLon 06-19-2021 CT ANG THORAX WCON PE PROTOCOL STUDY: CT ANG THORAX WCON PE PROTOCOL; 06/19/2021 6:00 pm INDICATION: high dimer. COMPARISON: Chest x-ray 06/19/2021. ACCESSION NUMBER(S): [id number] ORDERING CLINICIAN: Siri Harris TECHNIQUE: Helical data [...] at 6:47 pm with readback verification. Normal [facility] CT HEAD/BRAIN WO CONon 06-19 CT HEAD/BRAIN WO CON STUDY: CT HEAD/BRAIN WO CON; 06/19/2021 6:00 pm INDICATION: htn. COMPARISON: CT scan of the head 09/09/2016 ACCESSION NUMBER(S): [id number] ORDERING CLINICIAN: Siri Harris TECHNIQUE: Axial noncontrast [...] Stable chronic changes as described above. Normal [facility] Calcium SerPl-mCncOrdered By : Siri Harris on 06-19-2021 Calcium [Mass/Vol] 9.0 mg/dL 8.5-10.1 [facility] D dimer FEU PPP-mCncOrdered By: Siri Harris on 06-19-2021 Fibrin D-dimer FEU (PPP) [Mass/Vol] 1020.82 <500 [facility] Comment on above: The CUT-OFF value fo r the evaluation of VenousThromboEmbolism (VTE) is <500 ng/mL FEU. D-DIMER QUANTon 06-19-2021 D-DIMER QUANT 1020.82 ng/mLFEU High <500 [facility] Comment on above: Order Comment: CONSE RVATION Result Comment: The CUT-OFF value for the evaluation of Venous ThromboEmbolism (VTE) is <500 ng/mL FEU. Performed By: #### L 300.75280 #### Test performed at: [place] [address] ED Provider Reporton 022 ED Provider Report [facility] Pt Name: YEFRI YANEZ MR#: [id number] [address] [place] [address] ACCT: [id number] : 63 EMERGENCY PROVIDER REPORT ADM Date: [...] History Past Medical History Reports HTN, Denies MD, Denies COPD, Denies Asthma Past Med Hx [...] 23 Mallory (more content not included)... Normal [facility] EKGon 06-19-2021 Electrocardiogram Acquired on 06/20/19 22 [...] PM Referred By: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 Turner MD Work Phone: 6(941)566-981909 [place] [address] 04-12-2023 15:35-0500 Body height 180.[address] Jose Ramon Turner Work Phone: [facility] 04-12-2023 15:35-0500 Body mass index (BMI) [Ratio] 38.5 kg/m2 Dr. Jose Ramon Turner Work Phone: [facility] 04-12-2023 15:35-0500 Body temperature 98.2 [degF] Dr. Jose Ramon Turner Work Phone: [facility] 04-12-2023 15:35-0500 Body weight 125.[address] Jose Ramon Turner Work Phone: [facility] 04-12-2023 15:35-0500 Diastolic blood pressure 66 mm[Hg] Dr. Jose Ramon Turner Work Phone: [facility] 04-12-2023 15:35-0500 Heart rate 80 /min Dr. Jose Ramon Turner Work Phone: 9(105)823-632161 [place] [address] 04-12-2023 15:35-0500 Respiratory rate 18 /min Dr. Jose Ramon Turner Work Phone: [facility] 04-12-2023 15:35-0500 SaO2% (BldA) [Mass fraction] 95 % Dr. Jose Ramon Turner Work Phone: [facility] 04-12-2023 15:35-0500 Systolic blood pressure 104 mm[Hg] Dr. Jose Ramon Turner Work Phone: [facility] 12-17-2022 09:20-0400 Inhaled oxygen flow rate 2 L/min Dr. Jose Ramon Turner Work Phone: [facility] 12-17-2022 09:18-0400 SaO2% (BldA) [Mass fraction] 97 % Dr. Jose Ramon Turner Work Phone: [facility] 12-17-2022 09:00-0400 Body temperature 98 [degF] Dr. Jose Ramon Turner Work Phone: 3(033)331-889861 [place] [address] 12-17-2022 09:00-0400 Diastolic blood pressure 87 mm[Hg] Dr. Jose Ramon Turner Work Phone: [facility] 12-17-2022 09:00-0400 Heart rate 77 /min Dr. Jose Ramon Turner Work Phone: [facility] 12-17-2022 09:00-0400 Respiratory rate 16 /min Dr. Jose Ramon Turner Work Phone: [facility] 12-17-2022 09:00-0400 Systolic blood pressure 125 mm[Hg] Dr. Jose Ramon Turner Work Phone: 4(711)438-668061 [place] [address] 12-17-2022 04:00-0400 Body mass index (BMI) [Ratio] 36.1 kg/m2 Dr. Jose Ramon Turner Work Phone: 6(347)014-198761 [place] [address] 12-17-2022 04:00-0400 Body weight 117.[address] Jose Ramon Turner Work Phone: [facility] 12-16-2022 15:19-0400 Body height 180.[address] Jose Ramon Turner Work Phone: [facility] 09-29-2022 13:43-0400 Body mass index (BMI) [Ratio] 9.3 kg/m2 Dr. Jose Ramon Turner Work Phone: 4(205)827-580261 [place] [address] 09-29-2022 13:43-0400 Body weight 30.[address] Jose Ramon Turner Work Phone: [facility] 09-29-2022 13:43-0400 Diastolic blood pressure 81 mm[Hg] Dr. Jose Ramon Turner Work Phone: [facility] 09-29-2022 13:43-0400 Heart rate 84 /min Dr. Jose Ramon Turner Work Phone: [facility] 09-29-2022 13:43-0400 Respiratory rate 20 /min Dr. Jose Ramon Turner Work Phone: 4(558)658-579861 [place] [address] 09-29-2022 13:43-0400 SaO2% (BldA) [Mass fraction] 97 % Dr. Jose Ramon Turner Work Phone: [facility] 09-29-2022 13:43-0400 Systolic blood pressure 110 mm[Hg] Dr. Jose Ramon Turner Work Phone: [facility] 09-03-2022 13:24-0400 Body height 180.[address] Jose Ramon Turner Work Phone: 7(998)394-325761 [place] [address] 09-03-2022 13:24-0400 Body mass index (BMI) [Ratio] 37.8 kg/m2 Dr. Jose Ramon Turner Work Phone: 5(761)863-984524 [address] 09-03-2022 13:24-0400 Body temperature 97.2 [degF] Dr. Jose Ramon Turner Work Phone: 4(656)181-711024 [address] 09-03-2022 13:24-0400 Body weight 122.[address] Jose Ramon Turner Work Phone: 3(634)099-160961 [place] [address] 09-03-2022 13:24-0400 Diastolic blood pressure 89 mm[Hg] Dr. Jose Ramon Turner Work Phone: 6(666)548-904861 [place] [address] 09-03-2022 13:24-0400 Heart rate 72 /min Dr. Jose Ramon Turner Work Phone: 2(454)280-363861 [place] [address] 09-03-2022 13:24-0400 Respiratory rate 16 /min Dr. Jose Ramon Turner Work Phone: [facility] 09-03-2022 13:24-0400 SaO2% (BldA) [Mass fraction] 97 % Dr. Jose Ramon Turner Work Phone: [facility] 09-03-2022 13:24-0400 Systolic blood pressure 132 mm[Hg] Dr. Jose Ramon Turner Work Phone: [facility] 06-29-2022 12:20-0400 Body temperature 97.5 [degF] Dr. Jose Ramon Turner Work Phone: [facility] 06-29-2022 12:20-0400 Diastolic blood pressure 92 mm[Hg] Dr. Jose Ramon Turner Work Phone: [facility] 06-29-2022 12:20-0400 Heart rate 68 /min Dr. Jose Ramon Turner Work Phone: [facility] 06-29-2022 12:20-0400 Respiratory rate 18 /min Dr. Jose Ramon Turner Work Phone: [facility] 06-29-2022 12:20-0400 SaO2% (BldA) [Mass fraction] 93 % Dr. Jose Ramon Turner Work Phone: [facility] 06-29-2022 12:20-0400 Systolic blood pressure 126 mm[Hg] Dr. Jose Ramon Turner Work Phone: 8(922)510-982961 [place] [address] 06-29-2022 09:28-0400 Inhaled oxygen flow rate 0 L/min Dr. Jose Ramon Turner Work Phone: [facility] 06-29-2022 04:35-0400 Body mass index (BMI) [Ratio] 38.2 kg/m2 Dr. Jose Ramon Turner Work Phone: [facility] 06-29-2022 04:35-0400 Body weight 124.[address] Jose Ramon Turner Work Phone: [facility] 06-28-2022 11:54-0400 Body height 180.[address] Jose Ramon Turner Work Phone: [facility] 06-28-2022 00:14-0400 Body temperature 98.7 [degF] Dr. Jose Ramon Turner Work Phone: [facility] 06-28-2022 00:14-0400 Diastolic blood pressure 89 mm[Hg] Dr. Jose Ramon Turner Work Phone: [facility] 06-28-2022 00:14-0400 Heart rate 98 /min Dr. Jose Ramon Turner Work Phone: [facility] 06-28-2022 00:14-0400 Respiratory rate 24 /min Dr. Jose Ramon Turner Work Phone: [facility] 06-28-2022 00:14-0400 SaO2% (BldA) [Mass fraction] 97 % Dr. Jose Ramon Turner Work Phone: [facility] 06-28-2022 00:14-0400 Systolic blood pressure 139 mm[Hg] Dr. Jose Ramon Turner Work Phone: [facility] 06-27-2022 23:04-0400 Body height 180.[address] Jose Ramon Turner Work Phone: 6(896)587-122624 [address] 06-27-2022 23:04-0400 Body mass index (BMI) [Ratio] 38.8 kg/m2 Dr. Jose Ramon Turner Work Phone: 2(742)938-884461 [place] [address] 06-27-2022 23:04-0400 Body weight 126.[address] Jose Ramon Turner Work Phone: 9(900)899-251624 [address] 05-27-2022 12:50-0400 Body mass index (BMI) [Ratio] 37.8 kg/m2 Dr. Jose Ramon Turner Work Phone: 9(723)333-806424 [address] 05-27-2022 12:50-0400 Body temperature 98.6 [degF] Dr. Jose Ramon Turner Work Phone: [facility] 05-27-2022 12:50-0400 Body weight 123.[address] Jose Ramon Turner Work Phone: 9(910)779-679524 [address] 05-27-2022 12:50-0400 Diastolic blood pressure 83 mm[Hg] Dr. Jose Ramon Turner Work Phone: [facility] 05-27-2022 12:50-0400 Heart rate 54 /min Dr. Jose Ramon Turner Work Phone: [facility] 05-27-2022 12:50-0400 Respiratory rate 17 /min Dr. Jose Ramon Turner Work Phone: [facility] 05-27-2022 12:50-0400 Systolic blood pressure 117 mm[Hg] Dr. Jose Ramon Turner Work Phone: [facility] 05-27-2022 10:46-0400 Body weight 122.[address] Jose Ramon Turner Work Phone: [facility] 05-27-2022 10:46-0400 Diastolic blood pressure 83 mm[Hg] Dr. Jose Ramon Turner Work Phone: [facility] 05-27-2022 10:46-0400 Heart rate 77 /min Dr. oJse Ramon Turner Work Phone: [facility] 05-27-2022 10:46-0400 Respiratory rate 24 /min Dr. Jose Ramon Turner Work Phone: [facility] 05-27-2022 10:46-0400 Systolic blood pressure 117 mm[Hg] Dr. Jose Ramon Turner Work Phone: [facility] 05-20-2022 08:50-0400 Body temperature 97.6 [degF] Dr. Jose Ramon Turner Work Phone: [facility] 05-20-2022 08:50-0400 Diastolic blood pressure 86 mm[Hg] Dr. Jose Ramon Turner Work Phone: [facility] 05-20-2022 08:50-0400 Heart rate 78 /min Dr. Jose Ramon Turner Work Phone: [facility] 05-20-2022 08:50-0400 Respiratory rate 18 /min Dr. Jose Ramon Turner Work Phone: [facility] 05-20-2022 08:50-0400 SaO2% (BldA) [Mass fraction] 96 % Dr. Jose Ramon Turner Work Phone: [facility] 05-20-2022 08:50-0400 Systolic blood pressure 133 mm[Hg] Dr. Jose Ramon Turner Work Phone: [facility] 05-20-2022 07:38-0400 Inhaled oxygen concentration 30 % Dr. Jose Ramon Turner Work Phone: [facility] 05-20-2022 04:08-0400 Body mass index (BMI) [Ratio] 37.9 kg/m2 Dr. Jose Ramon Turner Work Phone: [facility] 05-20-2022 04:08-0400 Body weight 123.[address] Jose Ramon Turner Work Phone: [facility] 05-19-2022 14:55-0400 Body height 180.[address] Jose Ramon Turner Work Phone: [facility] 05-18-2022 17:18-0400 Body temperature 97.5 [degF] Dr. Jose Ramon Turner Work Phone: [facility] 05-18-2022 17:18-0400 Diastolic blood pressure 113 mm[Hg] Dr. Jose Ramon Turner Work Phone: [facility] 05-18-2022 17:18-0400 Heart rate 97 /min Dr. Jose Ramon Turner Work Phone: [facility] 05-18-2022 17:18-0400 Respiratory rate 24 /min Dr. Jose Ramon Turner Work Phone: [facility] 05-18-2022 17:18-0400 SaO2% (BldA) [Mass fraction] 97 % Dr. Jose Ramon Turner Work Phone: [facility] 05-18-2022 17:18-0400 Systolic blood pressure 145 mm[Hg] Dr. Jose Ramon Turner Work Phone: [facility] 05-18-2022 14:59-0400 Body height 180.[address] Jose Ramon Turner Work Phone: [facility] 05-18-2022 14:59-0400 Body mass index (BMI) [Ratio] 38.6 kg/m2 Dr. Jose Ramon Turner Work Phone: [facility] 05-18-2022 14:59-0400 Body weight 125.[address] Jose Ramon Turner Work Phone: [facility] 04-16-2022 13:54-0500 Body temperature 97.7 [degF] Dr. Jose Ramon Turner Work Phone: [facility] 04-16-2022 13:54-0500 Diastolic blood pressure 88 mm[Hg] Dr. Jose Ramon Turner Work Phone: [facility] 04-16-2022 13:54-0500 Heart rate 98 /min Dr. Jose Ramon Turner Work Phone: [facility] 04-16-2022 13:54-0500 Respiratory rate 18 /min Dr. Jose Ramon Turner Work Phone: [facility] 04-16-2022 13:54-0500 SaO2% (BldA) [Mass fraction] 94 % Dr. Jose Ramon Turner Work Phone: [facility] 04-16-2022 13:54-0500 Systolic blood pressure 120 mm[Hg] Dr. Jose Ramon Turner Work Phone: [facility] 04-16-2022 09:58-0500 Inhaled oxygen flow rate 0 L/min Dr. Jose Ramon Turner Work Phone: [facility] 04-16-2022 06:00-0500 Body weight 121.[address] Jose Ramon Turner Work Phone: [facility] 04-16-2022 04:00-0500 Inhaled oxygen concentration 32 % Dr. Jose Ramon Turner Work Phone: [facility] 04-14-2022 10:03-0500 Body height 177.[address] Jose Ramon Turner Work Phone: [facility] 04-14-2022 01:15-0500 Body mass index (BMI) [Ratio] 38.5 kg/m2 Dr. Jose Ramon Turner Work Phone: [facility] 04-14-2022 00:37-0500 Body temperature 97.1 [degF] [facility] 04-14-2022 00:37-0500 Diastolic blood pressure 82 mm[Hg] [facility] 04-14-2022 00:37-0500 Heart rate 102 /min [facility] 04-14-2022 00:37-0500 Inhaled oxygen flow rate 2 L/min [facility] 04-14-2022 00:37-0500 Respiratory rate 22 /min [facility] 04-14-2022 00:37-0500 SaO2% (BldA) [Mass fraction] 100 % [facility] 04-14-2022 00:37-0500 Systolic blood pressure 116 mm[Hg] [facility] 04-13-2022 21:17-0500 Body height 180.34 cm [facility] 04-13-2022 21:17-0500 Body mass index (BMI) [Ratio] 35.8 kg/m2 [facility] 04-13-2022 21:17-0500 Body weight 116.57 kg [facility] 04-03-2022 10:31-0500 Body height 177.8 cm Daksha Turner Work Phone: [facility] [employer] 400 DO Work Phone: 04-03-2022 10:31-0500 Body mass index (BMI) [Ratio] 38.63 kg/m2 Daksha Turner Work Phone: [facility] [employer] 400 DO Work Phone: 04-03-2022 10:31-0500 Body surface area Derived from formula 2.37 m2 Daksha Turner Work Phone: [facility] 400 DO Work Phone: 04-03-2022 10:31-0500 Body temperature 97.6 [degF] Daksha Turner Work Phone: [facility] [facility] 400 DO Work Phone: 04-03-2022 10:31-0500 Body weight 122.13 kg Kimoela Turner Work Phone: [facility] 400 DO Work Phone: 04-03-2022 10:31-0500 Diastolic blood pressure 73 mm[Hg] Daksha Gary Johnny Work Phone: [facility]nc[facility] 400 DO Work Phone: 04-03-2022 10:31-0500 Heart rate 123 /min Daksha Gary Johnny Work Phone: [facility]jlzjg[facility]Cwaf[facility] 400 DO Work Phone: 04-03-2022 10:31-0500 Systolic blood pressure 111 mm[Hg] Daksha Gary Johnny Work Phone: [facility]wakxm[facility]Fay[facility]ab [facility] 400 DO Work Phone: 03-11-2022 13:10-0500 Body weight 118.84 kg Haylee Wilburn MD Work Phone: [facility] 03-11-2022 13:10-0500 Diastolic blood pressure 84 mm[Hg] Haylee Wilburn MD Work Phone: [facility] 03-11-2022 13:10-0500 Heart rate 78 /min Haylee Wilburn MD Work Phone: [facility] 03-11-2022 13:10-0500 Respiratory rate 16 /min Haylee Wilburn MD Work Phone: [facility] 03-11-2022 13:10-0500 Systolic blood pressure 134 mm[Hg] Haylee Wilburn MD Work Phone: [facility] 02-17-2022 11:30-0500 Body weight 114.76 kg Haylee Wilburn MD Work Phone: [facility] 02-17-2022 11:30-0500 Diastolic blood pressure 74 mm[Hg] Haylee Wilburn MD Work Phone: [facility] 02-17-2022 11:30-0500 Heart rate 72 /min Haylee Wilburn MD Work Phone: [facility] 02-17-2022 11:30-0500 Respiratory rate 16 /min Haylee Wilburn MD Work Phone: [facility] 02-17-2022 11:30-0500 Systolic blood pressure 132 mm[Hg] Haylee Wilburn MD Work Phone: [facility] 02-16-2022 11:03-0500 Diastolic blood pressure 64 mm[Hg] Sayra Tello MD Work Phone: [facility] 02-16-2022 11:03-0500 Systolic blood pressure 90 mm[Hg] Sayra Tello MD Work Phone: [facility] 02-16-2022 10:55-0500 Body height 180.3 cm Sayra Tello MD Work Phone: [facility] 02-16-2022 10:55-0500 Body weight 115.67 kg Sayra Tello MD Work Phone: [facility] 02-16-2022 10:55-0500 Heart rate 51 /min Sayra Tello MD Work Phone: [facility] 02-16-2022 10:55-0500 SaO2% (BldA) [Mass fraction] 94 % Sayra Tello MD Work Phone: [facility] 02-13-2022 14:10-0500 Body temperature 98.2 [degF] Suman Peterson APRN.[employer] Work Phone: [facility] 02-13-2022 14:10-0500 Body weight 119.75 kg Suman Peterson APRN.[employer] Work Phone: [facility] 02-13-2022 14:10-0500 Diastolic blood pressure 87 mm[Hg] Suman Peterson APRN.[employer] Work Phone: [facility] 02-13-2022 14:10-0500 Heart rate 64 /min Suman Peterson SECTION HAND.[employer] Work Phone: [facility] 02-13-2022 14:10-0500 Respiratory rate 22 /min Suman Peterson SECTION HAND.[employer] Work Phone: [facility] 02-13-2022 14:10-0500 SaO2% (BldA) [Mass fraction] 94 % Suman Peterson SECTION HAND.[employer] Work Phone: [facility] 02-13-2022 14:10-0500 Systolic blood pressure 138 mm[Hg] Suman Peterson SECTION HAND.[employer] Work Phone: [facility] 02-10-2022 14:00-0500 Body temperature 97.52 [degF] Daksha Turner Other Phone: [facility] 02-10-2022 14:00-0500 Diastolic blood pressure 100 mm[Hg] Daksha Turner Other Phone: [facility] 02-10-2022 14:00-0500 Heart rate 87 /min Daksha Turner Other Phone: [facility] 02-10-2022 14:00-0500 Respiratory rate 18 /min Daksha Turner Other Phone: [facility] 02-10-2022 14:00-0500 SaO2% (BldA) [Mass fraction] 94 % Daksha Turner Other Phone: [facility] 02-10-2022 14:00-0500 Systolic blood pressure 126 mm[Hg] Daksha Turner Other Phone: [facility] 01-29-2022 15:08-0500 Respiratory rate 20 /min Dr. Jose Ramon Turner Work Phone: [facility] 01-29-2022 14:36-0500 Diastolic blood pressure 128 mm[Hg] Dr. Jose Ramon Turner Work Phone: [facility] 01-29-2022 14:36-0500 Heart rate 101 /min Dr. Jose Ramon Turner Work Phone: [facility] 01-29-2022 14:36-0500 SaO2% (BldA) [Mass fraction] 98 % Dr. Jose Ramon Turner Work Phone: [facility] 01-29-2022 14:36-0500 Systolic blood pressure 157 mm[Hg] Dr. Jose Ramon Turner Work Phone: [facility] 01-29-2022 14:00-0500 Inhaled oxygen flow rate 2 L/min Dr. Jose Ramon Turner Work Phone: [facility] 01-29-2022 11:54-0500 Body height 177.[address] Jose Ramon Turner Work Phone: [facility] Work Phone: 01-29-2022 11:54-0500 Body mass index (BMI) [Ratio] 40.1 kg/m2 Dr. Jose Ramon Turner Work Phone: [facility] 01-29-2022 11:54-0500 Body temperature 97.6 [degF] Dr. Jose Ramon Turner Work Phone: [facility] 01-29-2022 11:54-0500 Body weight 126.[address] Jose Ramon Turner Work Phone: [facility] 01-20-2022 20:25-0500 Diastolic blood pressure 103 mm[Hg] Dr. Jose Ramon Turner Work Phone: [facility] 01-20-2022 20:25-0500 Heart rate 88 /min Dr. Jose Ramon Turner Work Phone: [facility] 01-20-2022 20:25-0500 Respiratory rate 31 /min Dr. Jose Ramon Turner Work Phone: [facility] 01-20-2022 20:25-0500 SaO2% (BldA) [Mass fraction] 97 % Dr. Jose Ramon Turner Work Phone: [facility] 01-20-2022 20:25-0500 Systolic blood pressure 136 mm[Hg] Dr. Jose Ramon Turner Work Phone: [facility] 01-20-2022 18:43-0500 Body height 177.[address] Jose Ramon Turner Work Phone: [facility] Work Phone: 01-20-2022 18:43-0500 Body mass index (BMI) [Ratio] 30.9 kg/m2 Dr. Jose Ramon Turner Work Phone: [facility] 01-20-2022 18:43-0500 Body temperature 97.7 [degF] Dr. Jose Ramon Turner Work Phone: [facility] 01-20-2022 18:43-0500 Body weight 97.[address] Jose Ramon Turner Work Phone: [facility] 12-09-2021 10:15-0400 Body height 177.8 cm Alfredo Xavier MD Work Phone: [facility] 12-09-2021 10:15-0400 Body weight 114.31 kg Alfredo Xavier MD Work Phone: [facility] 12-09-2021 10:15-0400 Diastolic blood pressure 91 mm[Hg] Alfredo Xavier MD Work Phone: [facility] 12-09-2021 10:15-0400 Heart rate 98 /min Alfredo Xavier MD Work Phone: [facility] 12-09-2021 10:15-0400 Respiratory rate 22 /min Alfredo Xavier MD Work Phone: [facility] 12-09-2021 10:15-0400 SaO2% (BldA) [Mass fraction] 96 % Alfredo Xavier MD Work Phone: [facility] 12-09-2021 10:15-0400 Systolic blood pressure 131 mm[Hg] Alfredo Xavier MD Work Phone: [facility] 12-09-2021 07:44-0400 Body temperature 97 [degF] Dr. Jose Ramon Turner Work Phone: [facility] Work Phone: 12-09-2021 07:44-0400 Diastolic blood pressure 88 mm[Hg] Dr. Jose Ramon Turner Work Phone: [facility] Work Phone: 12-09-2021 07:44-0400 Heart rate 61 /min Dr. Jose Ramon Turner Work Phone: [facility] Work Phone: 12-09-2021 07:44-0400 Respiratory rate 16 /min Dr. Jose Ramon Turner Work Phone: [facility] Work Phone: 12-09-2021 07:44-0400 SaO2% (BldA) [Mass fraction] 96 % Dr. Jose Ramon Turner Work Phone: [facility] Work Phone: 12-09-2021 07:44-0400 Systolic blood pressure 112 mm[Hg] Dr. Jose Ramon Turner Work Phone: [facility] Work Phone: 12-08-2021 17:06-0400 Inhaled oxygen flow rate 2 L/min Dr. Jose Ramon Turner Work Phone: [facility] Work Phone: 12-08-2021 12:50-0400 Body weight 116.[address] Jose Ramon Turner Work Phone: [facility] Work Phone: 12-07-2021 16:40-0400 Body mass index (BMI) [Ratio] 36.7 kg/m2 Dr. Jose Ramon Turner Work Phone: [facility] Work Phone: 12-07-2021 16:29-0400 Body temperature 98.4 [degF] [facility] Work Phone: 12-07-2021 16:29-0400 Diastolic blood pressure 78 mm[Hg] [facility] Work Phone: 12-07-2021 16:29-0400 Heart rate 98 /min [facility] Work Phone: 12-07-2021 16:29-0400 Inhaled oxygen flow rate 2 L/min [facility] Work Phone: 12-07-2021 16:29-0400 Respiratory rate 24 /min [facility] Work Phone: 12-07-2021 16:29-0400 SaO2% (BldA) [Mass fraction] 97 % [facility] Work Phone: 12-07-2021 16:29-0400 Systolic blood pressure 134 mm[Hg] [facility] Work Phone: 12-07-2021 13:38-0400 Body height 177.8 cm [facility] Work Phone: 12-07-2021 13:38-0400 Body mass index (BMI) [Ratio] 36.6 kg/m2 [facility] Work Phone: 12-07-2021 13:38-0400 Body weight 115.66 kg [facility] Work Phone: 11-19-2021 08:48-0400 Body height 177.8 cm Haylee Wilburn MD Work Phone: [facility] 11-19-2021 08:48-0400 Body weight 118.84 kg Haylee Wilburn MD Work Phone: [facility] 11-19-2021 08:48-0400 Diastolic blood pressure 82 mm[Hg] Haylee Wilburn MD Work Phone: [facility] 11-19-2021 08:48-0400 Heart rate 76 /min Haylee Wilburn MD Work Phone: [facility] 11-19-2021 08:48-0400 Respiratory rate 18 /min Haylee Wilburn MD Work Phone: [facility] 11-19-2021 08:48-0400 Systolic blood pressure 130 mm[Hg] Haylee Wilburn MD Work Phone: [facility] 10-27-2021 11:35-0400 Body height 177.8 cm Pacc 2 Work Phone: [facility] 10-27-2021 11:35-0400 Body temperature 97.7 [degF] Pacc 2 Work Phone: [facility] 10-27-2021 11:35-0400 Body weight 118.39 kg Pacc 2 Work Phone: [facility] 10-27-2021 11:35-0400 Diastolic blood pressure 88 mm[Hg] Pacc 2 Work Phone: [facility] 10-27-2021 11:35-0400 Heart rate 77 /min Pacc 2 Work Phone: [facility] 10-27-2021 11:35-0400 SaO2% (BldA) [Mass fraction] 96 % Pacc 2 Work Phone: [facility] 10-27-2021 11:35-0400 Systolic blood pressure 127 mm[Hg] Pacc 2 Work Phone: [facility] 10-09-2021 10:24-0400 Body temperature 97.7 [degF] Godfrey Maroli SECTION HAND.[employer] Work Phone: [facility] 10-09-2021 10:24-0400 Body weight 118.84 kg Godfrey Maroli SECTION HAND.[employer] Work Phone: [facility] 10-09-2021 10:24-0400 Diastolic blood pressure 89 mm[Hg] Godfrey Maroli SECTION HAND.[employer] Work Phone: [facility] 10-09-2021 10:24-0400 Heart rate 74 /min Godfrey Maroli SECTION HAND.[employer] Work Phone: [facility] 10-09-2021 10:24-0400 Respiratory rate 20 /min Godfrey Maroli SECTION HAND.[employer] Work Phone: [facility] 10-09-2021 10:24-0400 SaO2% (BldA) [Mass fraction] 97 % Godfrey Maroli SECTION HAND.[employer] Work Phone: [facility] 10-09-2021 10:24-0400 Systolic blood pressure 130 mm[Hg] Godfrey Maroli SECTION HAND.[employer] Work Phone: [facility] 09-22-2021 12:16-0400 Body height 180.3 cm Chaka Doris SECTION HAND.[employer] Work Phone: [facility] 09-22-2021 12:16-0400 Body weight 125.19 kg Chaka Doris SECTION HAND.[employer] Work Phone: [facility] 09-22-2021 12:16-0400 Diastolic blood pressure 90 mm[Hg] Chaka Doris SECTION HAND.[employer] Work Phone: [facility] 09-22-2021 12:16-0400 Heart rate 90 /min Chaka Doris SECTION HAND.[employer] Work Phone: [facility] 09-22-2021 12:16-0400 Respiratory rate 18 /min Chaka Doris SECTION HAND.[employer] Work Phone: [facility] 09-22-2021 12:16-0400 SaO2% (BldA) [Mass fraction] 97 % Chaka Doris SECTION HAND.[employer] Work Phone: [facility] 09-22-2021 12:16-0400 Systolic blood pressure 128 mm[Hg] Chaka Doris SECTION HAND.[employer] Work Phone: [facility] 09-11-2021 13:30-0400 Body temperature 97.11 [degF] Kenneth Chester MD Work Phone: [facility] 09-11-2021 13:30-0400 Body weight 118.07 kg Kenneth Chester MD Work Phone: [facility] 09-11-2021 13:30-0400 Diastolic blood pressure 89 mm[Hg] Kenneth Chester MD Work Phone: [facility] 09-11-2021 13:30-0400 Heart rate 92 /min Kenneth Chester MD Work Phone: [facility] 09-11-2021 13:30-0400 Respiratory rate 20 /min Kenneth Chester MD Work Phone: [facility] 09-11-2021 13:30-0400 SaO2% (BldA) [Mass fraction] 95 % Kenneth Chester MD Work Phone: [facility] 09-11-2021 13:30-0400 Systolic blood pressure 139 mm[Hg] Kenneth Chester MD Work Phone: [facility] 09-02-2021 14:09-0400 Body temperature 97.9 [degF] [place] (Trac) Work Phone: [facility] 09-02-2021 14:09-0400 Body weight 118.16 kg [place]ig (Trac) Work Phone: [facility] 09-02-2021 14:09-0400 Diastolic blood pressure 99 mm[Hg] [place] (Trac) Work Phone: [facility] 09-02-2021 14:09-0400 Heart rate 105 /min [place] (Trac) Work Phone: [facility] 09-02-2021 14:09-0400 Respiratory rate 22 /min [place] ([employer]ac) Work Phone: [facility] 09-02-2021 14:09-0400 SaO2% (BldA) [Mass fraction] 100 % [place] (Trac) Work Phone: [facility] 09-02-2021 14:09-0400 Systolic blood pressure 135 mm[Hg] [place] (Trac) Work Phone: [facility] 08-19-2021 11:57-0400 Body temperature 98.1 [degF] Godfrey Clayton RN [facility] 08-19-2021 11:57-0400 Respiratory rate 18 /min Godfrey Clayton RN [facility] 08-19-2021 10:05-0400 Body weight 113.81 kg Lalo Acevedo MD Work Phone: [facility] 08-19-2021 10:05-0400 Diastolic blood pressure 102 mm[Hg] Lalo Acevedo MD Work Phone: [facility] 08-19-2021 10:05-0400 Heart rate 90 /min Lalo Acevedo MD Work Phone: [facility] 08-19-2021 10:05-0400 SaO2% (BldA) [Mass fraction] 96 % Lalo Acevedo MD Work Phone: [facility] 08-19-2021 10:05-0400 Systolic blood pressure 136 mm[Hg] Lalo Acevedo MD Work Phone: [facility] 08-08-2021 09:19-0400 Body temperature 99 [degF] Godfrey Maroli SECTION HAND.[employer] Work Phone: [facility] 08-08-2021 09:19-0400 Body weight 117.98 kg Godfrey Maroli SECTION HAND.[employer] Work Phone: [facility] 08-08-2021 09:19-0400 Diastolic blood pressure 98 mm[Hg] Godfrey Maroli SECTION HAND.[employer] Work Phone: [facility] 08-08-2021 09:19-0400 Heart rate 109 /min Godfrey Maroli SECTION HAND.[employer] Work Phone: [facility] 08-08-2021 09:19-0400 Respiratory rate 20 /min Godfrey Maroli SECTION HAND.[employer] Work Phone: [facility] 08-08-2021 09:19-0400 SaO2% (BldA) [Mass fraction] 95 % Godfrey Ohara SECTION HAND.[employer] Work Phone: [facility] 08-08-2021 09:19-0400 Systolic blood pressure 141 mm[Hg] Godfrey Xochitl SECTION HAND.[employer] Work Phone: [facility] 08-06-2021 09:56-0400 Body temperature 98.1 [degF] Godfrey Clayton [facility] 08-06-2021 09:56-0400 Body weight 118.3 kg Godfrey Clayton [facility] 08-06-2021 09:56-0400 Diastolic blood pressure 92 mm[Hg] Godfrey Clayton [facility] 08-06-2021 09:56-0400 Heart rate 99 /min Godfrey Clayton [facility] 08-06-2021 09:56-0400 Respiratory rate 20 /min Godfrey Clayton [facility] 08-06-2021 09:56-0400 SaO2% (BldA) [Mass fraction] 99 % Godfrey Clayton RN [facility] 08-06-2021 09:56-0400 Systolic blood pressure 144 mm[Hg] Godfrey Clayton RN [facility] 07-31-2021 09:23-0400 Diastolic blood pressure 103 mm[Hg] Lalo Acevedo MD Work Phone: [facility] 07-31-2021 09:23-0400 Heart rate 72 /min Lalo Acevedo MD Work Phone: [facility] 07-31-2021 09:23-0400 Respiratory rate 12 /min Lalo Acevedo MD Work Phone: [facility] 07-31-2021 09:23-0400 SaO2% (BldA) [Mass fraction] 95 % Lalo Acevedo MD Work Phone: [facility] 07-31-2021 09:23-0400 Systolic blood pressure 147 mm[Hg] Lalo Acevedo MD Work Phone: [facility] 07-24-2021 10:13-0400 Body temperature 98.29 [degF] Godfrey Maroli SECTION HAND.[employer] Work Phone: [facility] 07-24-2021 10:13-0400 Body weight 118 kg Godfrey Maroli SECTION HAND.[employer] Work Phone: [facility] 07-24-2021 10:13-0400 Diastolic blood pressure 92 mm[Hg] Godfrey Maroli SECTION HAND.[employer] Work Phone: [facility] 07-24-2021 10:13-0400 Heart rate 88 /min Godfrey Maroli SECTION HAND.[employer] Work Phone: [facility] 07-24-2021 10:13-0400 Respiratory rate 20 /min Godfrey Maroli SECTION HAND.[employer] Work Phone: [facility] 07-24-2021 10:13-0400 SaO2% (BldA) [Mass fraction] 99 % Godfrey Maroli SECTION HAND.[employer] Work Phone: [facility] 07-24-2021 10:13-0400 Systolic blood pressure 146 mm[Hg] Godfrey Maroli SECTION HAND.[employer] Work Phone: [facility] 07-21-2021 08:57-0400 Diastolic blood pressure 91 mm[Hg] Godfrey Clayton RN [facility] 07-21-2021 08:57-0400 Systolic blood pressure 146 mm[Hg] Godfrey Clayton RN [facility] 07-21-2021 08:49-0400 Body temperature 98.2 [degF] Godfrey Clayton RN [facility] 07-21-2021 08:49-0400 Heart rate 72 /min Godfrey Clayton RN [facility] 07-21-2021 08:49-0400 Respiratory rate 20 /min Godfrey Clayton RN [facility] 07-21-2021 08:49-0400 SaO2% (BldA) [Mass fraction] 99 % Godfrey Clayton RN [facility] 07-14-2021 14:42-0400 Body temperature 99.5 [degF] Godfrey Maroli SECTION HAND.[employer] Work Phone: [facility] 07-14-2021 14:42-0400 Body weight 118.48 kg Godfrey Haskinsoli SECTION HAND.[employer] Work Phone: [facility] 07-14-2021 14:42-0400 Diastolic blood pressure 99 mm[Hg] Godfrey Maroli SECTION HAND.[employer] Work Phone: [facility] 07-14-2021 14:42-0400 Heart rate 77 /min Godfrey Maroli SECTION HAND.[employer] Work Phone: [facility] 07-14-2021 14:42-0400 Respiratory rate 20 /min Godfrey Maroli SECTION HAND.[employer] Work Phone: [facility] 07-14-2021 14:42-0400 SaO2% (BldA) [Mass fraction] 100 % Godfrey Maroli SECTION HAND.[employer] Work Phone: [facility] 07-14-2021 14:42-0400 Systolic blood pressure 143 mm[Hg] Godfrey Maroli SECTION HAND.[employer] Work Phone: [facility] 07-02-2021 11:53-0400 Diastolic blood pressure 89 mm[Hg] Kenneth Chester MD Work Phone: [facility] 07-02-2021 11:53-0400 Heart rate 71 /min Kenneth Chester MD Work Phone: [facility] 07-02-2021 11:53-0400 Respiratory rate 20 /min Kenneth Chester MD Work Phone: [facility] 07-02-2021 11:53-0400 SaO2% (BldA) [Mass fraction] 98 % Kenneth Chester MD Work Phone: [facility] 07-02-2021 11:53-0400 Systolic blood pressure 150 mm[Hg] Kenneth Chester MD Work Phone: [facility] 06-23-2021 10:56-0400 Body weight 115.03 kg Adriana Hodge MD Work Phone: [facility] 06-23-2021 10:56-0400 Diastolic blood pressure 92 mm[Hg] Adriana Hodge MD Work Phone: [facility] 06-23-2021 10:56-0400 Heart rate 59 /min Adriana Hodge MD Work Phone: [facility] 06-23-2021 10:56-0400 Systolic blood pressure 142 mm[Hg] Adriana Hodge MD Work Phone: [facility] 06-19-2021 19:35-0400 Body temperature 98.6 [degF] Family Unavailable [facility] 06-19-2021 19:35-0400 Diastolic blood pressure 90 mm[Hg] Family Unavailable [facility] 06-19-2021 19:35-0400 Heart rate 71 /min Family Unavailable [facility] 06-19-2021 19:35-0400 Respiratory rate 20 /min Family Unavailable [facility] 06-19-2021 19:35-0400 SaO2% (BldA) [Mass fraction] 100 % Family Unavailable [facility] 06-19-2021 19:35-0400 Systolic blood pressure 156 mm[Hg] Family Unavailable [facility] 06-19-2021 15:47-0400 Body height 180.34 cm Family Unavailable [facility] 06-19-2021 15:47-0400 Body mass index (BMI) [Ratio] 34.1 kg/m2 Family [facility] 06-19-2021 15:47-0400 Body weight 111 kg Family Unavailable [facility] Encounters Encounter Date Encounter Type Care Provider Facility Start: 12-05-2024 ambulatory Daksha Nicholas lity:[facility] Start: 11-13-2024 ambulatory Daksha Nicholas lity:[facility] Start: 11-01-2024 ambulatory Daksha Nicholas lity:[facility] Start: 10-30-2024 End: 10-30-2024 Patient encounter procedure Kassy QUINTANAC -[facility] Work Phone: Start: 10-30-2024 End: 10-30-[address] Daksha Turner MD Work Phone: -[facility] Start: 10-21-2024 Non-patient / Non-visit Dr. Marquise Padilla MD -[facility] Work Phone: Start: 10-20-2024 Non-patient / Non-visit Dr. Marquise Padilla MD -[facility] Work Phone: Start: 10-19-2024 ambulatory Daksha Nicholas lity:[facility] Start: 10-19-2024 End: 10-21-2024 Evaluation and management of inpatient Dr. Rahul Chavez -[facility] Work Phone: Start: 10-02-2024 End: 10-02-2024 Patient encounter procedure Gini Couch NP-C -[facility] Work Phone: Start: 10-02-2024 End: 10-02-[address] Daksha Turner MD Work Phone: -[facility] Start: 10-02-2024 End: 10-02-2024 ambulatory Daksha Turner Facility:[facility] Start: 09-26-2024 Non-patient / Non-visit Gini Couch NP-C -[facility] Work Phone: Start: 09-26-2024 ambulatory Daksha Arthuri lity:[facility] Start: 09-25-2024 ambulatory Daksha Nicholas lity:[facility] Start: 09-25-2024 Non-patient / Non-visit Dr. Moises Gaona MD -[facility] Start: 09-25-2024 End: 09-25-[address] Daksha Turner MD Work Phone: -[facility] Start: 09-25-2024 End: 09-25-[address] Daksha Turner MD -[facility] Work Phone: Start: 09-25-2024 End: 09-25-[address] Daksha Turner MD Work Phone: -[facility] Start: 09-25-2024 End: 09-25-2024 Patient encounter procedure Gini Couch PROCESS LINE OPERATOR-C -[facility] Work Phone: Start: 09-24-2024 End: 09-25-2024 ambulatory Daksha Turner Facility:[facility] Start: 09-24-2024 Non-patient / Non-visit Dr. Moises Gaona MD -[facility] Start: 09-12-2024 ambulatory Daksha Arthuri lity:[facility] Start: 08-14-2024 End: 09-04-[address] Daksha Turner MD -[facility] Work Phone: Start: 08-14-[address] Fazal Turner MD -[facility] Work Phone: Start: 08-14-2024 End: 09-04-[address] Daksha Turner MD Work Phone: -[facility] Start: 08-14-2024 End: 08-14-2024 Patient encounter procedure Gini Couch PROCESS LINE OPERATOR-C -[facility] Work Phone: Start: 08-14-2024 End: 08-14-[address] Daksha Turner MD Work Phone: [facility] Work Phone: Start: 08-14-2024 End: 08-14-2024 ambulatory Gini Couch NP Facility:[facility] Start: 08-01-2024 ambulatory Daksha Nicholas lity:[facility] Start: 07-18-2024 ambulatory Daksha Nicholas lity:[facility] Start: 06-20-2024 End: 06-20-[address] Daksha Turner MD Work Phone: [facility] Work Phone: Start: 06-20-2024 End: 06-20-[address] Dangelo Botello MD -[facility] Work Phone: Start: 06-20-2024 End: 06-20-2024 ambulatory Daksha Turner Facility:[facility] Start: 06-13-2024 End: 06-13-[address] Daksha Turner MD Work Phone: [facility] Work Phone: Start: 06-13-2024 End: 06-13-[address] Dangelo Botello MD -Cat Scan, [facility] Work Phone: Start: 06-13-2024 End: 06-13-2024 [facility] [place] Facility:[facility] Start: 06-05-2024 End: 06-05-[address] Daksha Turner MD -Nutritional Services Work Phone: Start: 06-05-2024 End: 06-05-[address] Daksha Turner MD Work Phone: [facility] Work Phone: Start: 03-22-2024 End: 03-22-[address] Isidra Chiu DO -Laboratory Work Phone: Start: 03-22-2024 End: 03-22-2024 [facility] Start: 02-08-2024 End: 02-08-[address] Daksha Turner MD -Cat Scan, [facility] Work Phone: Start: 02-08-2024 End: 02-08-2024 ambulatory Daksha Turner Facility:[facility] Start: 01-11-2024 End: 01-11-2024 ambulatory Janusz Johnny Facility:[facility] Start: 12-22-2023 End: 12-22-2023 ambulatory Janusz Johnny Facility:[facility] Start: 12-22-2023 End: 12-22-2023 ambulatory Tamiment Johnny Facility:[facility] Start: 05-27-2023 End: 05-27-[address] Jose Ramon Turner Work Phone: [facility] Work Phone: Start: 05-27-2023 End: 05-27-[address] Jose Ramon Turner Work Phone: [facility]atory, [place] Work Phone: Start: 05-21-2023 End: 05-21-[address] Jose Ramon Turner Work Phone: [facility] Work Phone: Start: 05-21-2023 End: 05-21-[address] Jose Ramon Turner Work Phone: [facility]-Laboratory, [place] Work Phone: Start: 05-20-2023 End: 05-20-[address] Jose Ramon Turner Work Phone: [facility] Work Phone: Start: 05-20-2023 End: 05-20-[address] [facility] Start: 04-26-2023 End: 04-26-[address] Jose Ramon Turner Work Phone: [facility] Work Phone: Start: 04-26-2023 End: 04-26-[address] Jose Ramon Turner Work Phone: [facility]-Radiology, [place] Work Phone: Start: 04-12-[address] Fazal Turner Work Phone: [facility] Oncology Start: 04-12-2023 End: 04-12-[address] Jose Ramon Turner Work Phone: [facility] Work Phone: Start: 03-04-2023 End: 03-04-[address] Jose Ramon Turner Work Phone: [facility] Work Phone: Start: 03-04-2023 End: 03-04-[address] Jose Ramon Turner Work Phone: [facility]-Cat Scan, [facility] Work Phone: Start: 02-12-2023 End: 02-12-[address] Jose Ramon Turner Work Phone: [facility] Work Phone: Start: 02-12-2023 End: 02-12-[address] Jose Ramon Turner Work Phone: [facility]-Laboratory, Spec[place] Work Phone: Start: 12-30-2022 End: 12-30-[address] Jose Ramon Turner Work Phone: [facility] Work Phone: Start: 12-30-2022 End: 12-30-[address] Jose Ramon Turner Work Phone: [facility] Work Phone: Start: 12-17-2022 Non-patient / Non-visit Dr. Jose Ramon Turner Work Phone: [facility] Inpatient Physicians Work Phone: Start: 12-16-2022 End: 12-17-2022 Evaluation and management of inpatient Dr. Jose Ramon Turner Work Phone: [facility]-Progressive Care Unit Work Phone: Start: 12-16-2022 Non-patient / Non-visit Dr. Jose Ramon Turner Work Phone: [facility] Inpatient Physicians Work Phone: Start: 12-15-2022 Non-patient / Non-visit Dr. Jose Ramon Turner Work Phone: [facility]patient Phys[facility] Work Phone: Start: 11-12-2022 End: 11-12-[address] Jose Ramon Turner Work Phone: [facility] Work Phone: Start: 09-29-2022 End: 09-29-[address] Jose Ramon Turner Work Phone: [facility] Work Phone: Start: 09-03-2022 End: 09-03-[address] Jose Ramon Turner Work Phone: [facility] Work Phone: Start: 09-03-[address] Fazal Turner Work Phone: [facility] Oncology Start: 09-01-2022 End: 09-01-[address] Jose Ramon Turner Work Phone: [facility] Work Phone: Start: 09-01-2022 End: 09-01-[address] Jose Ramon Turner Work Phone: [facility] Work Phone: Start: 07-17-[address] Jose Ramon Turner Facility:[id number] Start: 07-16-2022 Non-patient / Non-visit Dr. Jose Ramon Turner Work Phone: [facility] Start: 07-16-2022 End: 07-16-[address] [facility] Work Phone: Start: 06-29-2022 Non-patient / Non-visit Dr. Jose Ramon Turner Work Phone: [facility] Inpatient Physicians Start: 06-28-2022 End: 06-29-2022 Evaluation and management of inpatient Dr. Jose Ramon Turner Work Phone: [facility] Start: 05-27-2022 End: 05-27-[address] Jose Ramon Turner Work Phone: [facility] Start: 05-27-2022 End: 05-27-[address] Jose Ramon Turner Work Phone: [facility] Start: 05-20-2022 Non-patient / Non-visit Dr. Jose Ramon Turner Work Phone: [facility] Inpatient Physicians Start: 05-19-2022 Non-patient / Non-visit Dr. Jose Ramon Turner Work Phone: [facility] Inpatient Physicians Start: 05-18-2022 End: 05-20-2022 Evaluation and management of inpatient Dr. Jose Ramon Turner Work Phone: [facility] Start: 04-16-2022 Non-patient / Non-visit Dr. Jose Ramon Turner Work Phone: [facility] Start: 04-15-2022 Non-patient / Non-visit Dr. Jose Ramon Turner Work Phone: [facility] Inpatient Physicians Start: 04-15-2022 End: 04-15-2022 Non-patient / Non-visit Dr. Jose Ramon Turner Work Phone: [facility] Start: 04-14-2022 Non-patient / Non-visit Dr. Jose Ramon Turner Work Phone: [facility] Start: 04-14-2022 Non-patient / Non-visit Dr. Jose Ramon Turner Work Phone: [facility] [facility] Start: 04-13-2022 End: 04-16-2022 Evaluation and management of inpatient [facility]-Intensive Care Unit Start: 04-13-2022 End: 04-13-[address] Jose Ramon Turner Work Phone: [facility] Work Phone: Start: 04-13-2022 End: 04-13-2022 Patient encounter procedure [facility] Start: 04-09-2022 End: 04-10-2022 ambulatory DAKSHA TURNER Facility:[id number] Start: 04-09-2022 End: 04-09-2022 amb[address] [place] [address] Comment on above: Malignant neoplasm o f right kidney, except renal pelvis (HCC) (Primary Dx) Start: 04-03-2022 Postop follow up visit related to original px Daksha Turner Work Phone: [facility] 400 DO Work Phone: Start: 04-03-[address] Jose Ramon Turner Facility:[id number] Start: 04-02-2022 Telephone encounter America Schwartz risk management analyst Oncology Comment on above: Appointment Appointment (No show ) Start: 03-26-2022 ambulatory HAYLEE WILBURN Facility :[id number] Start: 03-26-2022 End: 03-26-2022 Subsequent hospital visit by physician [facility] Work Phone: Radiology CT Scan Comment on above: Malignant neoplasm o f right kidney, except renal pelvis [C64.1] Start: 03-25-2022 Telephone encounter Haylee Wilburn MD Work Phone: Hematology Oncology Comment on above: Appointment; Care Co ordinator - Other Start: 03-23-2022 ambulatory Haley MARTINEZ(R) [facility] Comment on above: Radiology [place] Start: 03-23-2022 Patient encounter procedure Haley MARTINEZ(R) [facility] Start: 03-23-2022 End: 03-23-2022 Subsequent hospital visit by physician [facility] Work Phone: Nuclear Medicine Comment on above: Renal cell carcinoma of right kidney (HCC) [C64.1] Start: 03-16-2022 Refill Haylee Wilburn MD Work Phone: Hematology/Oncology Comment on above: Refill Request (Inly ta to [facility]) Start: 03-12-2022 ambulatory Malachi [facility] Start: 03-12-2022 Patient encounter procedure Malachi Sarbjit [facility] Comment on above: SPP Oral Oncology/he matology - Treatment Referral (Inlyta); Insurance Authorization (Pending [place]) Start: 03-12-2022 Telephone encounter America Schwartz RN Hematology Oncology Comment on above: Appointment Start: 03-11-2022 End: 03-12-2022 ambulatory HAYLEE WILBURN Facility:[id number] Start: 03-11-2022 End: 03-11-2022 Office outpatient visit 25 minutes Haylee Wilburn MD Work Phone: Hematology Oncology Comment on above: Renal cell carcinoma of right kidney (HCC) (Primary Dx) Start: 02-26-2022 ambulatory SAYRA TELLO Fa cility:[id number] Start: 02-26-2022 End: 02-26-2022 Subsequent hospital visit by physician Echo Lab 3 [facility] Cardiology Comment on above: Acute decompensated heart failure (HCC) [I50.9] Start: 02-17-2022 End: 02-18-2022 ambulatory HAYLEE WILBURN Facility:[id number] Start: 02-17-2022 End: 02-17-2022 Office outpatient visit 25 minutes Haylee Wilburn MD Work Phone: Hematology Oncology Comment on above: Metastatic renal maggie l carcinoma, unspecified laterality (HCC) (Primary Dx) Start: 02-16-2022 End: 02-16-2022 ambulatory SAYRA TELLO Facility:[id number] Start: 02-16-2022 End: 02-16-2022 Office outpatient new 60 minutes Sayra Tello MD Work Phone: [facility] Card[facility] Comment on above: Paroxysmal atrial fi brillation (HCC) (Primary Dx); Nonrheumatic mitral valve regurgitation; Acute decompensated heart failure (HCC); Essential hypertension; Tobacco use disorder; NIMCO (obstructive sleep apnea) Start: 02-13-2022 End: 02-14-2022 ambulatory SUMAN PETERSON Facility:[id number] Start: 02-13-2022 End: 02-13-2022 Patient encounter procedure Suman Peterson SECTION HAND.DIVISION OFF[employer] Work Phone: Radiation Oncology Comment on above: Renal cell carcinoma of right kidney metastatic to other site (HCC) (Primary Dx) Start: 02-11-2022 Chart abstracting Adrienne Lee MA [facility] Start: 02-06-2022 [facility], Provider: Aravind Hernandez, Status: Pen, Time: 9:30 AM Daksha Turner Work Phone: [facility] DO Work Phone: Start: 02-06-2022 End: 02-10-2022 Evaluation and management of inpatient Aravind Luzicson [address] [address] Start: 02-05-2022 Telephone encounter Sayra Tello MD Work Phone: [facility] Cardiology Comment on above: Patient Question Start: 02-05-2022 Chart Update Daksha Turner Work Phone: [facility]mk[facility]d-Mxgvvhi[facility] [employer] 400 DO Work Phone: Start: 02-03-2022 Chart Update Daksha Turner Work Phone: WB-Zznynlc-Fbgerilp [employer] 400 DO Work Phone: Start: 01-29-2022 End: 01-29-2022 Emergency department patient visit Dr. Jose Ramon Turner Work Phone: [facility]-Emergency Department Start: 01-27-[address] ARAVIND Barragan acility:[id number] Start: 01-27-2022 Encounter for blood typing [facility] ARAVIND ROSRAIO [facility] Start: 01-27-2022 Encounter for preprocedural laboratory examination Dr. ARAVIND RODRIGUEZ [facility] Start: 01-23-2022 ambulatory Krish Scott Work Phone: Urology Start: 01-22-2022 Refill Kitty GEE-C Work Phone: Hematology Oncology Comment on above: Refill Request Start: 01-20-2022 End: 01-20-2022 Emergency department patient visit Dr. Jose Ramon Turner Work Phone: [facility]-Emergency Department Start: 01-19-2022 ambulatory KITTY Rojas ty:[id number] Start: 01-19-2022 End: 01-19-2022 [facility] Comment on above: Renal cell carcinoma of right kidney (HCC) [C64.1] Start: 2022 Patient encounter procedure Alfredo Xavier MD Work Phone: [facility] Start: 2022 Radiation Oncology Note Alfredo Xavier MD Work Phone: Radiation Oncology Comment on above: Completion Note Start: 12-30-2021 ambulatory Julee Nash RN [facility] Urological & Start: 12-30-2021 Telephone encounter Adriana glynn MD Work Phone: Urology Comment on above: Informed Consent Start: 12-28-2021 Telephone encounter Adriana glynn MD Work Phone: Urology Comment on above: Claims Adjuster Crop - O ther; Patient Update Start: 12-27-2021 Telephone encounter Adriana glynn MD Work Phone: Urology Comment on above: Patient Update Start: 12-26-2021 End: 12-26-2021 ambulatory ALFREDO XAVIER Facility:[id number] Start: 12-25-2021 End: 12-25-2021 ambulatory ALFREDO XAVIER Facility:[id number] Start: 12-24-2021 End: 12-24-2021 ambulatory ALFREDO XAVIER Facility:[id number] Start: 12-23-2021 End: 12-23-2021 ambulatory ALFREDO XAVIER Facility:[id number] Start: 12-22-2021 End: 12-22-2021 ambulatory ALFREDO XAVIER Facility:[id number] Start: 12-12-2021 Patient encounter procedure Alfredo Xavier MD Work Phone: [facility] Start: 12-12-2021 Radiation Oncology Note Alfredo Xavier MD Work Phone: Radiation Oncology Comment on above: Treatment Planning Simulation Note Start: 12-12-2021 End: 12-12-2021 ambulatory ALFREDO XAVIER Facility:[id number] Start: 12-09-2021 End: 12-09-2021 ambulatory [facility] Start: 12-09-2021 [facility] visit new patient Noreen Morejon Work [facility]: [facility] Comment on above: New patient, to genesis griggs relationship; Invalid number; Letter Request Start: 12-09-2021 End: 12-09-2021 Office outpatient visit 15 minutes Alfredo Xavier MD Work Phone: Radiation Oncology Comment on above: Renal cell carcinoma of right kidney (HCC) (Primary Dx) Start: 12-09-2021 Non-patient / Non-visit Dr. Jose Ramon Turner Work Phone: [facility] Inpatient Physicians Start: 12-08-2021 Non-patient / Non-visit Dr. Jose Ramon Turner Work Phone: [facility] Inpatient Physicians Start: 12-07-2021 Non-patient / Non-visit Dr. Jose Ramon Turner Work Phone: [facility] Inpatient Physicians Start: 12-07-2021 End: 12-09-2021 Evaluation and management of inpatient [facility] Start: 11-29-2021 Telephone encounter Adriana glynn MD Work Phone: Urology Comment on above: Results; Patient Upd ate; Claims Adjuster Crop - Other Start: 11-24-2021 Telephone encounter America Schwartz RN Hematology Oncology Comment on above: Patient Update (Call ed patient to inform him that the speciality pharmacy is going to call to set-up delivery time for his chemo medication. Patient verbalized understanding. America Schwartz, RN, BSN, OCN/) Start: 11-20-2021 End: 11-20-2021 ambulatory DAKSHA MONTESOXNARD Facility:[facility] Start: 11-20-2021 End: 11-20-2021 Subsequent hospital visit by physician Ct 2 Main Qb (I-Stat) Radiology Comment on above: Malignant neoplasm o f right kidney, except renal pelvis (HCC) [C64.1] Start: 11-19-2021 End: 11-20-2021 ambulatory HAYLEE WILBURN Facility:[id number] Start: 11-19-2021 End: 11-19-2021 Office outpatient visit 25 minutes Haylee Wilburn MD Work Phone: Hematology Oncology Comment on above: Metastatic renal maggie l carcinoma, unspecified laterality (HCC) (Primary Dx) Start: 11-06-2021 Telephone encounter Haylee pimentel Work Phone: Hematology Oncology Comment on above: Patient Update Claims Adjuster Crop - O ther (Calling to get an [...] is rescheduled.) Start: 10-27-2021 End: 10-28-2021 ambulatory [facility] Facility:[facility] Start: 10-27-2021 End: 10-27-2021 PAT Pacc Main 2 Work Phone: Pre Anesthesia Comment [...] without esophagitis; Prediabetes; Coronary artery disease involving ugashik coronary artery of ugashik heart, unspecified whether angina present PreOp Call (Cardiac Optimization, Warfarin Clearance) Start: 10-27-2021 End: 10-28-2021 ambulatory DAKSHA TURNER Facility:[facility] Start: 10-27-2021 Encounter for other preprocedural examination [facility] Start: 10-27-2021 End: 10-27-2021 Preprocedural examination done Pacc Main 2 Work Phone: Pre Anesthesia Start: 10-21-2021 Telephone encounter Haylee Wilburn MD Work Phone: Hematology Oncology Comment on above: Medication Problem ( [facility] and [facility] for cabzantinib and sent new order to [facility] speciality pharmacy.) Refill Request Start: 10-20-2021 End: 10-21-2021 ambulatory HAYLEE WILBURN Facility:[id number] Start: 10-16-2021 Telephone encounter Kenneth mayorga MD Work Phone: Hematology/Oncology Comment on above: Claims Adjuster Crop - O ther Start: 10-14-2021 Telephone encounter Rahul Knight RN Hematology/Oncology Comment on above: Patient Update Patient Question Start: 10-09-2021 End: 10-10-2021 ambulatory KENNETH CHESTER Facility:[facility] Start: 10-09-2021 End: 10-09-2021 ambulatory Godfrey Ohara APRN.CNP Work Phone: Hematology/Oncology Comment on above: Renal cell carcinoma of right kidney (HCC) (Primary Dx); Atrial fibrillation, unspecified type (HCC) Start: 10-09-2021 End: 10-09-2021 Nursing evaluation of patient and report Rahul Knight RN Hematology/Oncology Comment on above: Renal cell carcinoma of right kidney (HCC) (Primary Dx) Start: 10-09-2021 End: 10-09-2021 Patient encounter procedure Godfrey Ohara APRN.[employer] Work Phone: [facility] Start: 10-06-2021 ambulatory DAKSHA TURNER cility:[facility] Start: 09-29-2021 Patient Outreach Safia Magalie martinez [facility] Work Phone: Pharmacy Comment on above: Transition Of Care ( Pharmacy - Hospital Discharge 09/26/21); Heart Failure Follow Up Phone Call (relate care discharge follow up-1st attempt-no contact-left vm) Start: 09-25-2021 End: 09-25-2021 ambulatory DAKSHA TURNER Facility:[facility] Start: 09-25-2021 End: 09-25-2021 Patient encounter procedure Ip Transesophageal Echo Cardiology Comment on above: Paroxysmal atrial fi brillation (HCC) (Primary Dx) Start: 09-22-2021 End: 09-26-2021 Evaluation and management of inpatient JANUSZEUNICE Gary JOHNNY Facility:[facility] Start: 09-22-2021 End: 09-22-2021 ambulatory DAKSHA TURNER Facility:[facility] Start: 09-22-2021 End: 09-22-2021 Patient encounter procedure Chaka George APRN.[employer] Work Phone: Cardiology Comment on above: Paroxysmal atrial fi brillation (HCC) (Primary Dx); Mitral valve insufficiency, unspecified etiology; New onset a-fib (HCC); Essential hypertension; Mixed hyperlipidemia; 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) Start: 09-19-2021 Telephone encounter Rahul Knight RN Hematology/Oncology Comment on above: Patient Question Start: 09-16-2021 Telephone encounter Rahul Knight RN Hematology/Oncology Comment on above: Patient Update Start: 09-11-2021 End: 09-12-2021 ambulatory DAKSHA TURNER Facility:[facility] Start: 09-11-2021 End: 09-11-2021 ambulatory Kenneth Chester [...] encounter procedure Kenneth Chester MD Work Phone: [facility] Start: 09-05-2021 Telephone encounter Kenneth mayorga MD Work Phone: Hematology/Oncology Comment on above: Claims Adjuster Crop - O ther Start: 09-04-2021 End: 09-04-2021 [facility] Start: 09-02-2021 End: 09-04-2021 Evaluation and management of inpatient DAKSHA TURNER Facility:[facility] Start: 09-02-2021 End: 09-02-2021 ambulatory MENOMONIE Kaela MOREA Facility:[facility] Start: 09-02-2021 End: 09-02-2021 Subsequent hospital visit by physician Ct 2 Main Qb (I-Stat) Radiology Comment on above: SOB (shortness of br eath) [R06.02] Start: 09-02-2021 End: 09-03-2021 ambulatory MENOMONIE Kaela MOREA Hematology/Oncolo gy Comment on above: SOB (shortness of br eath) (Primary Dx) Start: 09-02-2021 End: 09-02-2021 Patient encounter procedure [facility] ([facility]) Work Phone: [facility] Start: 09-02-2021 Chart abstracting Godfrey Martinez Hematology/Oncology Start: 09-02-2021 End: 09-02-2021 Subsequent hospital visit by physician Xr Main Ca LLD Work Phone: Radiology Comment on above: SOB (shortness of br eath) [R06.02] Start: 09-01-2021 Telephone encounter Adriana glynn MD Work Phone: Urology Comment on above: Results; Patient Upd ate; Claims Adjuster Crop - Other Start: 08-27-2021 End: 08-27-2021 Orders Only Godfrey Maroli SECTION HAND.[employer] Work Phone: Hematology/Oncology Comment on above: Malignant neoplasm o f right kidney, except renal pelvis (HCC) (Primary Dx) Start: 08-20-2021 Orders Only Godfrey Marol i SECTION HAND.[employer] Work Phone: Hematology/Oncology Comment on above: Malignant neoplasm o f right kidney, except renal pelvis (HCC) (Primary Dx); Malignant neoplasm of kidney excluding renal pelvis, unspecified laterality (HCC) Start: 08-19-2021 End: 08-19-2021 [facility] Start: 08-19-2021 End: 08-19-2021 Nursing evaluation of patient and report Godfrey Clayton RN Hematology/Oncology Comment on above: Renal cell carcinoma , unspecified laterality (HCC) (Primary Dx) Start: 08-19-2021 End: 08-19-2021 Patient encounter procedure Godfrey Maroli SECTION HAND.[employer] Work Phone: [facility] Start: 08-19-2021 End: 08-20-2021 ambulatory Godfrey Maroli SECTION HAND.[employer] Work Phone: Hematology/Oncology Comment on above: Renal cell carcinoma , unspecified laterality (HCC) (Primary Dx); Hypertension, unspecified type Start: 08-19-2021 End: 08-19-2021 Patient encounter procedure Lalo Acevedo MD Work Phone: Cardiology Comment on above: Pedal edema (Primary Dx); Essential hypertension; Coronary artery disease involving ugashik coronary artery of ugashik heart without angina pectoris; Disturbance in sleep behavior Start: 08-18-2021 ambulatory Godfrey Marol i SECTION HAND.[employer] Work Phone: Hematology/Oncology Comment on above: Opened In Error Start: 08-18-2021 Telephone encounter Godfrey Clayton RN Hematology/Oncology Comment on above: Research ([facility] 1819) Start: 08-17-2021 End: 08-17-2021 Emergency department patient visit KIMOELA TURNER Facility:[facility] Start: 08-16-2021 ambulatory Lalo Acevedo MD Work Phone: Cardiology Comment on above: Elevated Blood Press ures Start: 08-13-2021 Telephone encounter Godfrey Clayton risk management analyst/Oncology Comment on above: Research ([facility] 1819) Start: 08-12-2021 Refill Godfrey Bhardwaj i, APRN.[employer] Work Phone: Hematology/Oncology Comment on above: Refill Request Start: 08-12-2021 Telephone encounter Lalo mauricio MD Work Phone: Cardiology Comment on above: Blood Pressure Research ([facility] 1819) Start: 08-11-2021 Telephone encounter Hermila Ruiz RN Work Phone: Hematology/Oncology Comment on above: Research ([facility] 1819) Start: 08-08-2021 End: 08-08-2021 ambulatory Lab [facility] [address] Work Phone: Hematology/Oncology Comment on above: Malignant neoplasm o f right kidney, except renal pelvis (HCC) Renal cell carcinoma , unspecified laterality (HCC) (Primary Dx) Other specified diso rders of kidney and ureter Start: 08-08-2021 End: 08-09-2021 ambulatory DAKSHA TURNER Facility:[facility] Start: 08-08-2021 End: 08-09-2021 ambulatory Chair 1 Breast Work Phone: Hematology/Oncology Comment on above: Renal cell carcinoma of right kidney (HCC) (Primary Dx) Start: 08-08-2021 End: 08-08-2021 Nursing evaluation of patient and report Godfrey Clayton risk management analyst/Oncology Comment on above: Renal cell carcinoma of right kidney (HCC) (Primary Dx) Start: 08-08-2021 End: 08-08-2021 Patient encounter procedure Godfrey Ohara APRN.[employer] Work Phone: [facility] Start: 08-06-2021 End: 08-06-2021 ambulatory DAKSHA Gary SIMONPHILIP Facility:[facility] Start: 08-06-2021 Chart abstracting Godfrey acuña APRN.[employer] Work Phone: Hematology/Oncology Start: 08-06-2021 End: 08-07-2021 ambulatory KENNETH CHESTER Facility:[facility] Start: 08-06-2021 End: 08-06-2021 Subsequent hospital visit by physician Ct Prep Qb Radiology Comment on above: Malignant neoplasm o f kidney, unspecified laterality (HCC) [C64.9] Start: 08-06-2021 End: 08-06-2021 ambulatory Godfrey Ohara APRN.[employer] Work Phone: Hematology/Oncology Comment on above: Renal cell carcinoma , unspecified laterality (HCC) (Primary Dx); Hypertension, unspecified type Start: 08-06-2021 End: 08-06-2021 Nursing evaluation of patient and report Godfrey Clayton RN Hematology/Oncology Comment on above: Renal cell carcinoma of right kidney (HCC) (Primary Dx) Start: 08-06-2021 End: 08-06-2021 Patient encounter procedure Godfrey Ohara APRN.[employer] Work Phone: [facility] Start: 08-05-2021 End: 08-06-2021 ambulatory ATUL FUNG Facility:[facility] Start: 08-03-2021 Telephone encounter Atul Fung MD Work Phone: Cardiology Comment on above: Patient Education Start: 07-31-2021 End: 07-31-2021 ambulatory LALO ACEVEDO Facility:[facility] Start: 07-31-2021 End: 07-31-2021 ambulatory LALO ACEVEDO Facility:[facility] Start: 07-31-2021 End: 07-31-2021 Patient encounter procedure Lalo Acevedo MD Work Phone: Cardiology Comment on above: Nonrheumatic mitral valve regurgitation (Primary Dx) Start: 07-30-2021 Telephone encounter Tayler Moss RN Cardiology Comment on above: Patient Education (t ee) Start: 07-29-2021 Telephone encounter Godfrey Clayton RN Hematology/Oncology Comment on above: Research ([facility] 1819) Start: 07-28-2021 Orders Only Godfrey Bhardwaj i, APRN.[employer] Work Phone: Hematology/Oncology Comment on above: Malignant neoplasm o f right kidney, except renal pelvis (HCC) (Primary Dx); Malignant neoplasm of kidney excluding renal pelvis, unspecified laterality (HCC) Start: 07-25-2021 Chart abstracting Rahul ([facility] Roberto Bennett Work Phone: Hematology/Oncology Start: 07-25-2021 Telephone encounter Godfrey Clayton RN Hematology/Oncology Comment on above: Research ([facility] 1819) Start: 07-24-2021 Telephone encounter Godfrey nixon APRN.[employer] Work Phone: Hematology/Oncology Comment on above: Results Start: 07-24-2021 End: 07-24-2021 ambulatory [facility] Facility:[facility] Start: 07-24-2021 End: 07-25-2021 ambulatory Godfrey Ohara APRN.[employer] Work Phone: Hematology/Oncology Comment on above: Malignant neoplasm o f kidney excluding renal pelvis, unspecified laterality (HCC) (Primary Dx); Metastatic renal cell carcinoma, unspecified laterality (HCC) Start: 07-24-2021 End: 07-24-2021 Nursing evaluation of patient and report Godfrey Clayton RN Hematology/Oncology Comment on above: Renal cell carcinoma of right kidney (HCC) (Primary Dx) Start: 07-24-2021 End: 07-24-2021 Patient encounter procedure Godfrey Ohara APRN.[employer] Work Phone: [facility] Start: 07-23-2021 Telephone encounter Godfrey Clayton RN Hematology/Oncology Comment on above: Research ([facility] 1819) Start: 07-22-2021 End: 07-22-2021 ambulatory Lalo Acevedo MD Work Phone: Cardiology Comment on above: Nonrheumatic mitral valve regurgitation (Primary Dx); Cardiomyopathy, nonischemic (HCC) Start: 07-22-2021 End: 07-22-2021 Telemedicine consultation with patient Lalo Acevedo MD Work Phone: [facility] Start: 07-21-2021 Chart abstracting Godfrey acuña APRN.CNP Work Phone: Hematology/Oncology Start: 07-21-2021 Telephone encounter Financial Navigator [facility] Work Phone: Hematology/Oncology Comment on above: Benefits Investigati on Start: 07-21-2021 End: 07-21-2021 Nursing evaluation of patient and report Godfrey Clayton risk management analyst/Oncology Comment on above: Malignant neoplasm o f [...] Start: 07-17-2021 End: 07-17-2021 Patient encounter procedure [facility] Start: 07-15-2021 End: 07-15-2021 ambulatory [facility] Facility:[facility] Start: 07-14-2021 End: 07-15-2021 Orders Only Godfrey Ohara APRN.[employer] Work Phone: Hematology/Oncology Comment on above: Malignant neoplasm o f kidney excluding renal pelvis, unspecified laterality (HCC) (Primary Dx); Renal cell carcinoma, unspecified laterality (HCC) Malignant neoplasm o f right kidney, except renal pelvis (HCC) (Primary Dx) Anxiety (Primary Dx) Start: 07-11-2021 Telephone encounter Godfrey Clayton risk management analyst/Oncology Comment on above: Research ([facility] [id number]) Malignant neoplasm o f right kidney, except renal pelvis (HCC) (Primary Dx); Malignant neoplasm of kidney excluding renal pelvis, unspecified laterality (HCC) Start: 07-08-2021 End: 07-08-2021 ambulatory KENNETH CHESTER Facility:[facility] Start: 07-08-2021 End: 07-08-2021 Nursing evaluation of patient and report Godfrey Clayton RN Hematology/Oncology Comment on above: Malignant neoplasm o f kidney excluding renal pelvis, unspecified laterality (HCC) (Primary Dx) Start: 07-07-2021 Telephone encounter Godfrey Clayton RN Hematology/Oncology Comment on above: Research ([facility] 1820) Start: 07-02-2021 End: 07-02-2021 ambulatory Kenneth Chester MD Work Phone: Hematology/Oncology Comment on above: Malignant neoplasm o f kidney, unspecified laterality (HCC); Malignant neoplasm of kidney excluding renal pelvis, unspecified laterality (HCC); Chest wall mass Start: 07-02-2021 End: 07-02-2021 Patient encounter procedure Kenneth Chester MD Work Phone: [facility] Start: 07-01-2021 End: 07-01-2021 ambulatory ANNE-MARIE CHAPARRO Facility:[facility] Start: 06-30-2021 End: 07-01-2021 ambulatory JOHN GTZ Facility:[facility] Start: 06-30-2021 End: 06-30-2021 Subsequent hospital visit by physician [facility] Comment on above: Malignant neoplasm o f kidney, unspecified laterality (HCC) [C64.9] Start: 06-30-2021 End: 06-30-2021 ambulatory ADRIANA HODGE Facility:[facility] Start: 06-30-2021 End: 06-30-2021 Subsequent hospital visit by physician [facility] Start: 06-27-2021 End: 06-27-2021 ambulatory ADRIANA HODGE Facility:[facility] Start: 06-27-2021 End: 06-27-2021 Subsequent hospital visit [...] 06-20-2021 End: 06-20-2021 ambulatory DAWIT URBINA MD Facility:[facility] Start: 06-19-2021 End: 06-19-2021 Emergency department patient visit Family Physician Unavailable Facility:[facility] Start: 06-19-2021 End: 06-19-2021 Emergency department patient visit Family Unavailable [facility] Start: 06-30-2004 End: 11-26-2014 Patient encounter status E[facility] Work Phone: [facility] Procedures Date Procedure Procedure Detail Performing Clinician Start: 10-21-[address] Daksha Turner MD Work Phone: Start: 10-19-[address] Daksha Turner MD Work Phone: Start: 10-19-2024 Measurement of occul t blood in stool specimen using immunoassay Dr. Daksha Turner MD Work Phone: Start: 10-19-2024 Urnls dip stick/tabl et reagent auto microscopy Dr. Daksha Turner MD Work Phone: Start: 10-19-2024 Serum inorganic phos phate measurement Dr. Daksha Turner MD Work Phone: Start: 10-18-2024 X-ray of chest, PA a nd lateral views Dr. Daksha Turner MD Work Phone: Start: 10-18-2024 CT of abdomen and pe lvis without contrast Dr. Daksha Turner MD Work Phone: Start: 10-18-2024 Iadna-dna/rna gi pth gn multiplex probe tq 6-11 Dr. Daksha Turner MD Work Phone: Start: 10-18-2024 Cl[address]ridium difficil e detection Dr. Daksha Turner MD Work Phone: Start: 10-18-[address] Daksha Turner MD Work Phone: Start: 10-18-2024 SARS-CoV-2, Influenz a & RSV (PCR) Dr. Daksha Turner MD Work Phone: Start: 10-18-2024 Urnls dip stick/tabl et reagent auto microscopy Dr. Daksha Turner MD Work Phone: Start: 09-25-[address] Daksha [...] Radiography of nasal sinuses Dr. Jose Ramon Turenr Work Phone: Start: 12-15-2022 Legionella pneumophi la [...] 02-07-2022 Arterial Full Panel -Next Draw Liv Omer Start: 02-06-2022 End: 02-06-2022 Arterial Full Panel -Next Draw Nahomyrosie Amor Start: 02-06-[address] JULIENNE HERNANDEZ Comment on above: Performed By: #### T +S #### [place] [address] Start: 01-29-2022 Plain chest X-ray Dr. Tangela Turner Work Phone: Start: 01-27-[address] JULIENNE HERNANDEZ Comment on above: Performed By: #### C BC #### [place] [address] Start: 01-20-2022 Plain chest X-ray Dr. Tangela [...] Comment: Speci men Type: BLOOD SPECIMENOrdering Facility: [facility] Address: [address] [place] [address] Performed By: #### T [id number] ####CC MAIN BLOOD BANKCLIA [id number] [facility] [id number] [place] Start: 10-20-2021 Adult depression scr eening assessment Haylee Wilburn MD Work Phone: Start: 09-23-2021 Lipid 1996 panel - S desirae or Plasma Ekg/Holter [facility] Work Phone: Start: 09-22-2021 End: 09-22-2021 Ecg [...] Detail Author Start: 07-25-2028 Urine microalbumin profile [facility] Start: 09-23-2026 Lipid panel Lipid Screening [facility] Start: 09-23-2026 LIPID SCREEN LIPID SCREEN [facility] Start: 04-09-2025 DIABETES SCREEN DIABETES SCREEN [facility] Start: 04-09-2025 Diabetes Screening Diabetes Screenin g [facility] Start: 02-17-2025 DIABETES SCREEN DIABETES SCREEN [facility] Start: 11-05-2024 LIPID SCREEN LIPID SCREEN [facility] Start: 11-05-2024 PROSTATE CANCER SCRE ENING DISCUSSION PROSTATE CANCER SCREENING DISCUSSION [facility] Start: 11-05-2024 Prostate specific an tigen measurement Prostate Cancer Screening Discussion [facility] Start: 10-27-2024 DIABETES SCREEN DIABETES SCREEN [facility] Start: 10-21-2024 Patient discharge [facility] Start: 10-21-2024 Inhalation therapy procedure [facility] Start: 10-20-2024 [facility] Start: 10-20-2024 Dual pressure sponta neous ventilation support [facility] Start: 10-19-2024 Ova and Parasites Ova and Parasites [facility] Start: 10-19-2024 Referral to gastroenterology service [facility] Start: 10-19-2024 Chemotherapy care management [facility] Start: 10-19-2024 Following clinical p athway protocol [facility] Start: 10-19-2024 Ambulation without limitation [facility] Start: 10-19-2024 Assessment of risk o f venous thromboembolism [facility] Start: 10-19-2024 Care regimes management [facility] Start: 10-19-2024 Insertion of cathete r into peripheral vein [facility] Start: 10-19-2024 Measuring intake and output [facility] Start: 10-19-2024 Notification of physician [facility] Start: 10-19-2024 Oxygen therapy [facility] Start: 10-19-2024 Providing care accor ding to standard [facility] Start: 10-19-2024 Referral to service [facility] Start: 10-19-2024 Tobacco use cessatio n education [facility] Start: 10-19-2024 End: 10-19-2024 [facility] Start: 10-19-2024 Lactoferrin [Presenc e] in Stool by Immunoassay [facility] Start: 10-19-2024 Urinalysis complete panel - Urine [facility] Start: 10-19-2024 Verification routine [facility] Start: 10-19-2024 Admission procedure [facility] Start: 10-19-2024 Hospital admission, emergency, from emergency room, medical nature [facility] Start: 10-18-2024 Enteric precautions [facility] Start: 10-09-2024 DIABETES SCREEN DIABETES SCREEN [facility] Start: 09-26-2024 DIABETES SCREEN DI[facility]ET[facility]CREEN [facility] Start: 09-11-2024 DIABETES SCREEN DI[facility]ET[facility]CREEN [facility] Start: 09-03-2024 DIABETES SCREEN DI[facility]ET[facility] SCREEN [facility] Start: 09-02-2024 DIABETES SCREEN DI[facility]ET[facility] SCREEN [facility] Start: 08-19-2024 DIABETES SCREEN DI[facility]CREEN [facility] Start: 08-17-2024 DIABETES SCREEN [facility] SCREEN [facility] Start: 08-14-2024 Evaluation of diagno stic study results [facility] Start: 08-08-2024 DIABETES SCREEN DIABETES SCREEN [facility] Start: 08-06-2024 DIABETES SCREEN DI[facility]ETES SCREEN [facility] Start: 07-24-2024 DIABETES SCREEN DI[facility]ETES SCREEN [facility] Start: 07-21-2024 DIABETES SCREEN DI[facility]ETES SCREEN [facility] Start: 06-20-2024 DIABETES SCREEN DIABETES SCREEN [facility] Start: 11-07-2023 Covid-19 Vaccine () Covid-19 Vaccine () [facility] Start: 11-07-2023 Influenza vaccination Influenza Vacc ine (#1) [facility] Start: 02-16-2023 BP CONTROLLED (<130/80) BP CON TROLLED (<130/80) [facility] Start: 12-17-2022 Patient discharge [facility] Start: 12-16-2022 Admission procedure [facility] Start: 12-15-2022 End: 12-16-2022 [facility] Start: 12-15-2022 Continuous positive airway pressure ventilation treatment [facility] Start: 12-15-2022 Ambulation without limitation [facility] Start: 12-15-2022 Assessment of risk o f venous thromboembolism [facility] Start: 12-15-2022 Fluid restriction [facility] Start: 12-15-2022 Insertion of cathete r into peripheral vein [facility] Start: 12-15-2022 Measuring intake and output [facility] Start: 12-15-2022 Oxygen therapy [facility] Start: 12-15-2022 Providing care accor ding to standard [facility] Start: 12-15-2022 Referral to service [facility] Start: 12-15-2022 Admission procedure [facility] Start: 12-15-2022 Following clinical p athway protocol [facility] Start: 12-15-2022 Transfusion of blood product [facility] Start: 12-15-2022 Patient referral to dietitian [facility] Start: 10-20-2022 Adult depression scr eening assessment DEPRESSION SCREENING [facility] Start: 09-23-2022 BP CONTROLLED (<130/80) BP CON TROLLED (<130/80) [facility] Start: 09-23-2022 Hepatitis B surface antibody level LDL CHOLESTEROL [facility] Start: 07-06-2022 FUV, Provider: Aravind Hernandez, Status: Pen, Time: 1:40 PM FUV, Provider: Aravind Hernandez, Status: Pen, Time: 1:40 PM [id number] DO Work Phone: Start: 06-29-2022 Patient discharge [facility] Start: 06-28-2022 Following clinical p athway protocol [facility] Start: 06-28-2022 Assessment of risk o f venous thromboembolism [facility] Start: 06-28-2022 Continuous positive airway pressure ventilation treatment [facility] Start: 06-28-2022 Inhalation therapy procedure [facility] Start: 06-28-2022 Insertion of cathete r into peripheral vein [facility] Start: 06-28-2022 Introduction of urin rebecca catheter [facility] Start: 06-28-2022 Measuring intake and output [facility] Start: 06-28-2022 Oxygen therapy [facility] Start: 06-28-2022 End: 06-28-2022 Patient referral to dietitian [facility] Start: 06-28-2022 Providing care accor ding to standard [facility] Start: 06-28-2022 Provision of activit y privileges [facility] Start: 06-28-2022 Referral to service [facility] Start: 06-28-2022 End: 06-28-2022 [facility] Start: 06-28-2022 Verification routine [facility] Start: 06-28-2022 Admission procedure [facility] Start: 06-27-2022 Troponin I measurement [facility] Start: 06-27-2022 [facility] Start: 06-20-2022 ANNUAL PCP TEAM NAPPER TENDER SEFERINO DISEASE VISIT ANNUAL PCP TEAM CHRONIC DISEASE VISIT [facility] Start: 05-27-2022 Patient referral [facility] Work Phone: Start: 05-20-2022 Patient discharge [facility] Start: 05-19-2022 Continuous positive airway pressure ventilation treatment [facility] Start: 05-18-2022 Dual pressure sponta neous ventilation support [facility] Start: 05-18-2022 Following clinical p athway protocol [facility] Start: 05-18-2022 Assessment of risk o f venous thromboembolism [facility] Start: 05-18-2022 Continuous pulse oximetry [facility] Start: 05-18-2022 Insertion of cathete r into peripheral vein [facility] Start: 05-18-2022 Measuring intake and output [facility] Start: 05-18-2022 Oxygen therapy [facility] Start: 05-18-2022 Providing care accor ding to standard [facility] Start: 05-18-2022 Provision of activit y privileges [facility] Start: 05-18-2022 [facility] Start: 05-18-2022 Verification routine [facility] Start: 05-18-2022 Admission procedure [facility] Start: 05-18-2022 [facility] Start: 05-18-2022 Patient referral to dietitian [facility] Start: 04-17-2022 Prothrombin time [facility] Start: 04-16-2022 Patient discharge [facility] Start: 04-16-2022 Prothrombin time [facility] Start: 04-16-2022 Oxygen therapy [facility] Start: 04-15-2022 [facility] Start: 04-15-2022 Prothrombin time [facility] Start: 04-14-2022 Continuous pulse oximetry [facility] Start: 04-14-2022 [facility] Start: 04-14-2022 Application of intermittent pneumatic compression device [facility] Start: 04-14-2022 Following clinical p athway protocol [facility] Start: 04-14-2022 Chemotherapy care management [facility] Start: 04-14-2022 Elevation of affecte d extremity [facility] Start: 04-14-2022 Fluid restriction [facility] Start: 04-14-2022 Notification of physician [facility] Start: 04-14-2022 Patient education [facility] Start: 04-14-2022 End: 04-14-2022 [facility] Start: 04-14-2022 Continuous positive airway pressure ventilation treatment [facility] Start: 04-13-2022 Admission procedure [facility] Start: 03-25-2022 End: 05-25-2022 CBC W Auto Differential panel - Blood CBC + DIFF Lab Routine Renal cell carcinoma of right kidney (HCC) Expected: 03/25/2022, Expires: 05/25/2022 [facility] Work Phone: Comment on above: Expected: 03/25/2022 , Expires: 05/25/2022 Start: 03-25-2022 End: 05-25-2022 Comprehensive metabolic 2000 panel - Serum or Plasma COMP METABOLIC PANEL Lab Routine Renal cell carcinoma of right kidney (HCC) Expected: 03/25/2022, Expires: 05/25/2022 [facility] Work Phone: Comment on above: Expected: 03/25/2022 , Expires: 05/25/2022 Start: 03-25-2022 End: 05-25-2022 Thyrotropin [Units/volume] in Serum or Plasma TSH BLD Lab Routine Renal cell carcinoma of right kidney (HCC) Expected: 03/25/2022, Expires: 05/25/2022 [facility] Work Phone: Comment on above: Expected: 03/25/2022 , Expires: 05/25/2022 Start: 03-08-2022 DEPRESSION ASSESSMENT DEPRESSION ASS ESSMENT [facility] Start: 02-16-2022 End: 04-18-2022 Basic metabolic 2000 panel - Serum or Plasma BASIC METABOLIC PNL Lab Routine Acute decompensated heart failure (HCC) Paroxysmal atrial fibrillation (HCC) Expected: 02/16/2022, Expires: 04/18/2022 [facility] Work Phone: Comment on above: Expected: 02/16/2022 , Expires: 04/18/2022 Start: 02-08-2022 End: 02-09-2023 Bisacodyl Rectal 10 mg Suppository Daily PRN ; Suppository (DULCOLAX)DOSE = 10 mg Rectal Daily, PRN Constipation Start: 08-Feb-2022 End: 08-Feb-2023 Ordered: 08-Feb-[address] [facility] Start: 02-06-2022 End: 02-07-2023 [facility] Comment on above: Minimize narcotics May be [...] reaches 100 mg/dL or greater. Start: 02-06-2022 [facility], Provider: Aravind Hernandez, Status: Pen, Time: 9:30 AM [facility], Provider: Aravind Hernandez, Status: Pen, Time: 9:30 AM [id number] DO Work Phone: Start: 01-29-2022 Chemotherapy care management [facility] Start: 01-20-2022 Plain chest X-ray Chest 1 View (Portable) [facility] Work Phone: Start: 01-20-2022 XR Chest Single view [facility] Work Phone: Start: 12-30-2021 End: 03-01-2022 aPTT in Platelet poor plasma by Coagulation assay ACTIVATED PTT Lab Routine Renal cell carcinoma of right kidney (HCC) Expected: 12/30/2021 (Approximate), Expires: 03/01/2022 [facility] Work Phone: Comment on above: Expected: 12/30/2021 (Approximate), Expires: 03/01/2022 Start: 12-30-2021 End: 03-01-2022 CBC panel - Blood by Automated count CBC Lab Routine Renal cell carcinoma of right kidney (HCC) Expected: 12/30/2021 (Approximate), Expires: 03/01/2022 [facility] Work Phone: Comment on above: Expected: 12/30/2021 (Approximate), Expires: 03/01/2022 Start: 12-30-2021 End: 03-01-2022 Comprehensive metabolic 2000 panel - Serum or Plasma COMP METABOLIC PANEL Lab Routine Renal cell carcinoma of right kidney (HCC) Expected: 12/30/2021 (Approximate), Expires: 03/01/2022 [facility] Work Phone: Comment on above: Expected: 12/30/2021 (Approximate), Expires: 03/01/2022 Start: 12-30-2021 End: 03-01-2022 CONFIRM BLOOD TYPE CONFIRM BLOOD TYPE Blood Bank Routine Renal cell carcinoma of right kidney (HCC) Expected: 12/30/2021 (Approximate), Expires: 03/01/2022 [facility] Work Phone: Comment on above: Expected: 12/30/2021 (Approximate), Expires: 03/01/2022 Start: 12-30-2021 End: 03-01-2022 PT panel - Platelet poor plasma by Coagulation assay PROTHROMBIN TIME/PT Lab Routine Renal cell carcinoma of right kidney (HCC) Expected: 12/30/2021 (Approximate), Expires: 03/01/2022 [facility] Work Phone: Comment on above: Expected: 12/30/2021 (Approximate), Expires: 03/01/2022 Start: 12-30-2021 End: 12-30-2022 SARS-CoV-2 (COVID-19) RNA [Presence] in Respiratory specimen by SANDOVAL with probe detection PRE-PROCEDURE & PRE-OPERATIVE COVID Microbiology Routine Renal cell carcinoma of right kidney (HCC) Expected: 12/30/2021, Expires: 12/30/2022 [facility] Work Phone: Comment on above: Expected: 12/30/2021 , Expires: 12/30/2022 Start: 12-30-2021 End: 03-01-2022 TYPE AND SCREEN,30 DAY TYPE AND SCREEN,30 DAY Blood Bank Routine Renal cell carcinoma of right kidney (HCC) Expected: 12/30/2021 (Approximate), Expires: 03/01/2022 [facility] Work Phone: Comment on above: Expected: 12/30/2021 (Approximate), Expires: 03/01/2022 Start: 12-09-2021 Patient discharge [facility] Work Phone: Start: 12-08-2021 Inhalation therapy procedure [facility] Work Phone: Start: 12-07-2021 Chemotherapy care management [facility] Work Phone: Start: 12-07-2021 Ambulation without limitation [facility] Work Phone: Start: 12-07-2021 Assessment of risk o f venous thromboembolism [facility] Work Phone: Start: 12-07-2021 Catheterization of vein [facility] Work Phone: Start: 12-07-2021 Insertion of cathete r into peripheral vein [facility] Work Phone: Start: 12-07-2021 Measuring intake and output [facility] Work Phone: Start: 12-07-2021 Providing care accor ding to standard [facility] Work Phone: Start: 12-07-2021 [facility] Work Phone: Start: 12-07-2021 Verification routine [facility] Work Phone: Start: 12-07-2021 Admission procedure [facility] Work Phone: Start: 12-07-2021 Following clinical p athway protocol [facility] Work Phone: Start: 12-07-2021 Troponin I measurement [facility] Work Phone: Start: 12-06-2021 Influenza vaccination Influenza Vacc ine (#1) [facility] Start: 11-06-2021 Influenza vaccination C [facility] Start: 10-16-2021 End: 10-17-2021 aPTT in Platelet poor plasma by Coagulation assay ACTIVATED PTT Lab STAT Malignant neoplasm of right kidney, except renal pelvis (HCC) Expected: 10/16/2021, Expires: 10/17/2021 [facility] Work Phone: Comment on above: Expected: 10/16/2021 , Expires: 10/17/2021 Start: 10-16-2021 End: 10-17-2021 CBC W Auto Differential panel - Blood CBC + DIFF Lab STAT Malignant neoplasm of right kidney, except renal pelvis (HCC) Expected: 10/16/2021, Expires: 10/17/2021 [facility] Work Phone: Comment on above: Expected: 10/16/2021 , Expires: 10/17/2021 Start: 10-16-2021 End: 10-17-2021 Comprehensive metabolic 2000 panel - Serum or Plasma COMP METABOLIC PANEL Lab STAT Malignant neoplasm of right kidney, except renal pelvis (HCC) Expected: 10/16/2021, Expires: 10/17/2021 [facility] Work Phone: Comment on above: Expected: 10/16/2021 , Expires: 10/17/2021 Start: 10-16-2021 End: 09-26-2022 Ct abdomen & pelvis w/contrast material CT ABD/PEL W IVCON Radiology Routine Malignant neoplasm of right kidney, except renal pelvis (HCC) Expected: 10/16/2021, Expires: 09/26/2022 [facility] Work Phone: Comment on above: Expected: 10/16/2021 , Expires: 09/26/2022 Start: 10-16-2021 End: 09-26-2022 Ct thorax w/contrast material CT CHEST W IVCON Radiology Routine Malignant neoplasm of right kidney, except renal pelvis (HCC) Expected: 10/16/2021, Expires: 09/26/2022 [facility] Work Phone: Comment on above: Expected: 10/16/2021 , Expires: 09/26/2022 Start: 10-16-2021 End: 10-17-2021 Lactate dehydrogenase [Enzymatic activity/volume] in Serum or Plasma LD LACTATE DEHYDRO Lab STAT Malignant neoplasm of right kidney, except renal pelvis (HCC) Expected: 10/16/2021, Expires: 10/17/2021 [facility] Work Phone: Comment on above: Expected: 10/16/2021 , Expires: 10/17/2021 Start: 10-16-2021 End: 10-17-2021 Magnesium [Mass/volume] in Serum or Plasma MAGNESIUM BLD Lab STAT Malignant neoplasm of right kidney, except renal pelvis (HCC) Expected: 10/16/2021, Expires: 10/17/2021 [facility] Work Phone: Comment on above: Expected: 10/16/2021 , Expires: 10/17/2021 Start: 10-16-2021 End: 10-17-2021 Phosphate [Mass/volume] in Serum or Plasma PHOSPHORUS INORGANIC Lab STAT Malignant neoplasm of right kidney, except renal pelvis (HCC) Expected: 10/16/2021, Expires: 10/17/2021 [facility] Work Phone: Comment on above: Expected: 10/16/2021 , Expires: 10/17/2021 Start: 10-16-2021 End: 10-17-2021 PT panel - Platelet poor plasma by Coagulation assay PROTHROMBIN TIME/PT Lab STAT Malignant neoplasm of right kidney, except renal pelvis (HCC) Expected: 10/16/2021, Expires: 10/17/2021 [facility] Work Phone: Comment on above: Expected: 10/16/2021 , Expires: 10/17/2021 Start: 10-16-2021 End: 10-17-2021 Urate [Mass/volume] in Serum or Plasma URIC ACID BLOOD Lab STAT Malignant neoplasm of right kidney, except renal pelvis (HCC) Expected: 10/16/2021, Expires: 10/17/2021 [facility] Work Phone: Comment on above: Expected: 10/16/2021 , Expires: 10/17/2021 Start: 10-02-2021 End: 10-03-2021 aPTT in Platelet poor plasma by Coagulation assay ACTIVATED PTT Lab STAT Malignant neoplasm of right kidney, except renal pelvis (HCC) Expected: 10/02/2021, Expires: 10/03/2021 [facility] Work Phone: Comment on above: Expected: 10/02/2021 , Expires: 10/03/2021 Start: 10-02-2021 End: 10-03-2021 CBC W Auto Differential panel - Blood CBC + DIFF Lab STAT Malignant neoplasm of right kidney, except renal pelvis (HCC) Expected: 10/02/2021, Expires: 10/03/2021 [facility] Work Phone: Comment on above: Expected: 10/02/2021 , Expires: 10/03/2021 Start: 10-02-2021 End: 10-03-2021 CLINICAL TRIAL DRAW CLINICAL TRIAL DRAW Lab STAT Malignant neoplasm of right kidney, except renal pelvis (HCC) Expected: 10/02/2021, Expires: 10/03/2021 [facility] Work Phone: Comment on above: Expected: 10/02/2021 , Expires: 10/03/2021 Start: 10-02-2021 End: 10-03-2021 Comprehensive metabolic 2000 panel - Serum or Plasma COMP METABOLIC PANEL Lab STAT Malignant neoplasm of right kidney, except renal pelvis (HCC) Expected: 10/02/2021, Expires: 10/03/2021 [facility] Work Phone: Comment on above: Expected: 10/02/2021 , Expires: 10/03/2021 Start: 10-02-2021 End: 10-03-2021 Lactate dehydrogenase [Enzymatic activity/volume] in Serum or Plasma LD LACTATE DEHYDRO Lab STAT Malignant neoplasm of right kidney, except renal pelvis (HCC) Expected: 10/02/2021, Expires: 10/03/2021 [facility] Work Phone: Comment on above: Expected: 10/02/2021 , Expires: 10/03/2021 Start: 10-02-2021 End: 10-03-2021 Magnesium [Mass/volume] in Serum or Plasma MAGNESIUM BLD Lab STAT Malignant neoplasm of right kidney, except renal pelvis (HCC) Expected: 10/02/2021, Expires: 10/03/2021 [facility] Work Phone: Comment on above: Expected: 10/02/2021 , Expires: 10/03/2021 Start: 10-02-2021 End: 10-03-2021 Phosphate [Mass/volume] in Serum or Plasma PHOSPHORUS INORGANIC Lab STAT Malignant neoplasm of right kidney, except renal pelvis (HCC) Expected: 10/02/2021, Expires: 10/03/2021 [facility] Work Phone: Comment on above: Expected: 10/02/2021 , Expires: 10/03/2021 Start: 10-02-2021 End: 10-03-2021 PT panel - Platelet poor plasma by Coagulation assay PROTHROMBIN TIME/PT Lab STAT Malignant neoplasm of right kidney, except renal pelvis (HCC) Expected: 10/02/2021, Expires: 10/03/2021 [facility] Work Phone: Comment on above: Expected: 10/02/2021 , Expires: 10/03/2021 Start: 10-02-2021 End: 10-03-2021 Thyrotropin [Units/volume] in Serum or Plasma TSH BLD Lab STAT Malignant neoplasm of right kidney, except renal pelvis (HCC) Expected: 10/02/2021, Expires: 10/03/2021 [facility] Work Phone: Comment on above: Expected: 10/02/2021 , Expires: 10/03/2021 Start: 10-02-2021 End: 10-03-2021 Thyroxine (T4) free [Mass/volume] in Serum or Plasma T4 FREE/FREE THYROX Lab STAT Malignant neoplasm of right kidney, except renal pelvis (HCC) Expected: 10/02/2021, Expires: 10/03/2021 [facility] Work Phone: Comment on above: Expected: 10/02/2021 , Expires: 10/03/2021 Start: 10-02-2021 End: 10-03-2021 Triiodothyronine (T3) Free [Mass/volume] in Serum or Plasma T3 FREE BLD Lab STAT Malignant neoplasm of right kidney, except renal pelvis (HCC) Expected: 10/02/2021, Expires: 10/03/2021 [facility] Work Phone: Comment on above: Expected: 10/02/2021 , Expires: 10/03/2021 Start: 10-02-2021 End: 10-03-2021 Urate [Mass/volume] in Serum or Plasma URIC ACID BLOOD Lab STAT Malignant neoplasm of right kidney, except renal pelvis (HCC) Expected: 10/02/2021, Expires: 10/03/2021 [facility] Work Phone: Comment on above: Expected: 10/02/2021 , Expires: 10/03/2021 Start: 08-19-2021 End: 08-20-2021 aPTT in Platelet poor plasma by Coagulation assay ACTIVATED PTT Lab STAT Malignant neoplasm of right kidney, except renal pelvis (HCC) Expected: 08/19/2021, Expires: 08/20/2021 [facility] Work Phone: Comment on above: Expected: 08/19/2021 , Expires: 08/20/2021 Start: 08-19-2021 End: 08-20-2021 CBC W Auto Differential panel - Blood CBC + DIFF Lab STAT Malignant neoplasm of right kidney, except renal pelvis (HCC) Expected: 08/19/2021, Expires: 08/20/2021 [facility] Work Phone: Comment on above: Expected: 08/19/2021 , Expires: 08/20/2021 Start: 08-19-2021 End: 08-20-2021 Comprehensive metabolic 2000 panel - Serum or Plasma COMP METABOLIC PANEL Lab STAT Malignant neoplasm of right kidney, except renal pelvis (HCC) Expected: 08/19/2021, Expires: 08/20/2021 [facility] Work Phone: Comment on above: Expected: 08/19/2021 , Expires: 08/20/2021 Start: 08-19-2021 End: 08-20-2021 Lactate dehydrogenase [Enzymatic activity/volume] in Serum or Plasma LD LACTATE DEHYDRO Lab STAT Malignant neoplasm of right kidney, except renal pelvis (HCC) Expected: 08/19/2021, Expires: 08/20/2021 [facility] Work Phone: Comment on above: Expected: 08/19/2021 , Expires: 08/20/2021 Start: 08-19-2021 End: 08-20-2021 Magnesium [Mass/volume] in Serum or Plasma MAGNESIUM BLD Lab STAT Malignant neoplasm of right kidney, except renal pelvis (HCC) Expected: 08/19/2021, Expires: 08/20/2021 [facility] Work Phone: Comment on above: Expected: 08/19/2021 , Expires: 08/20/2021 Start: 08-19-2021 End: 08-20-2021 Phosphate [Mass/volume] in Serum or Plasma PHOSPHORUS INORGANIC Lab STAT Malignant neoplasm of right kidney, except renal pelvis (HCC) Expected: 08/19/2021, Expires: 08/20/2021 [facility] Work Phone: Comment on above: Expected: 08/19/2021 , Expires: 08/20/2021 Start: 08-19-2021 End: 08-20-2021 PT panel - Platelet poor plasma by Coagulation assay PROTHROMBIN TIME/PT Lab STAT Malignant neoplasm of right kidney, except renal pelvis (HCC) Expected: 08/19/2021, Expires: 08/20/2021 [facility] Work Phone: Comment on above: Expected: 08/19/2021 , Expires: 08/20/2021 Start: 08-19-2021 End: 08-20-2021 Urate [Mass/volume] in Serum or Plasma URIC ACID BLOOD Lab STAT Malignant neoplasm of right kidney, except renal pelvis (HCC) Expected: 08/19/2021, Expires: 08/20/2021 [facility] Work Phone: Comment on above: Expected: 08/19/2021 , Expires: 08/20/2021 Start: 08-07-2021 End: 08-08-2021 aPTT in Platelet poor plasma by Coagulation assay ACTIVATED PTT Lab STAT Malignant neoplasm of right kidney, except renal pelvis (HCC) Expected: 08/07/2021, Expires: 08/08/2021 [facility] Work Phone: Comment on above: Expected: 08/07/2021 , Expires: 08/08/2021 Start: 08-07-2021 End: 08-08-2021 CBC W Auto Differential panel - Blood CBC + DIFF Lab STAT Malignant neoplasm of right kidney, except renal pelvis (HCC) Expected: 08/07/2021, Expires: 08/08/2021 [facility] Work Phone: Comment on above: Expected: 08/07/2021 , Expires: 08/08/2021 Start: 08-07-2021 End: 08-08-2021 CLINICAL TRIAL DRAW CLINICAL TRIAL DRAW Lab STAT Malignant neoplasm of right kidney, except renal pelvis (HCC) Expected: 08/07/2021, Expires: 08/08/2021 [facility] Work Phone: Comment on above: Expected: 08/07/2021 , Expires: 08/08/2021 Start: 08-07-2021 End: 08-08-2021 Comprehensive metabolic 2000 panel - Serum or Plasma COMP METABOLIC PANEL Lab STAT Malignant neoplasm of right kidney, except renal pelvis (HCC) Expected: 08/07/2021, Expires: 08/08/2021 [facility] Work Phone: Comment on above: Expected: 08/07/2021 , Expires: 08/08/2021 Start: 08-07-2021 End: 08-08-2021 Lactate dehydrogenase [Enzymatic activity/volume] in Serum or Plasma LD LACTATE DEHYDRO Lab STAT Malignant neoplasm of right kidney, except renal pelvis (HCC) Expected: 08/07/2021, Expires: 08/08/2021 [facility] Work Phone: Comment on above: Expected: 08/07/2021 , Expires: 08/08/2021 Start: 08-07-2021 End: 08-08-2021 Magnesium [Mass/volume] in Serum or Plasma MAGNESIUM BLD Lab STAT Malignant neoplasm of right kidney, except renal pelvis (HCC) Expected: 08/07/2021, Expires: 08/08/2021 [facility] Work Phone: Comment on above: Expected: 08/07/2021 , Expires: 08/08/2021 Start: 08-07-2021 End: 08-08-2021 Phosphate [Mass/volume] in Serum or Plasma PHOSPHORUS INORGANIC Lab STAT Malignant neoplasm of right kidney, except renal pelvis (HCC) Expected: 08/07/2021, Expires: 08/08/2021 [facility] Work Phone: Comment on above: Expected: 08/07/2021 , Expires: 08/08/2021 Start: 08-07-2021 End: 08-08-2021 PT panel - Platelet poor plasma by Coagulation assay PROTHROMBIN TIME/PT Lab STAT Malignant neoplasm of right kidney, except renal pelvis (HCC) Expected: 08/07/2021, Expires: 08/08/2021 [facility] Work Phone: Comment on above: Expected: 08/07/2021 , Expires: 08/08/2021 Start: 08-07-2021 End: 08-08-2021 Urate [Mass/volume] in Serum or Plasma URIC ACID BLOOD Lab STAT Malignant neoplasm of right kidney, except renal pelvis (HCC) Expected: 08/07/2021, Expires: 08/08/2021 [facility] Work Phone: Comment on above: Expected: 08/07/2021 , Expires: 08/08/2021 Start: 08-05-2021 End: 08-06-2021 aPTT in Platelet poor plasma by Coagulation assay ACTIVATED PTT Lab STAT Malignant neoplasm of right kidney, except renal pelvis (HCC) Expected: 08/05/2021, Expires: 08/06/2021 [facility] Work Phone: Comment on above: Expected: 08/05/2021 , Expires: 08/06/2021 Start: 08-05-2021 End: 08-06-2021 CBC W Auto Differential panel - Blood CBC + DIFF Lab STAT Malignant neoplasm of right kidney, except renal pelvis (HCC) Expected: 08/05/2021, Expires: 08/06/2021 [facility] Work Phone: Comment on above: Expected: 08/05/2021 , Expires: 08/06/2021 Start: 08-05-2021 End: 08-06-2021 Comprehensive metabolic 2000 panel - Serum or Plasma COMP METABOLIC PANEL Lab STAT Malignant neoplasm of right kidney, except renal pelvis (HCC) Expected: 08/05/2021, Expires: 08/06/2021 [facility] Work Phone: Comment on above: Expected: 08/05/2021 , Expires: 08/06/2021 Start: 08-05-2021 End: 08-06-2021 Lactate dehydrogenase [Enzymatic activity/volume] in Serum or Plasma LD LACTATE DEHYDRO Lab STAT Malignant neoplasm of right kidney, except renal pelvis (HCC) Expected: 08/05/2021, Expires: 08/06/2021 [facility] Work Phone: Comment on above: Expected: 08/05/2021 , Expires: 08/06/2021 Start: 08-05-2021 End: 08-06-2021 Magnesium [Mass/volume] in Serum or Plasma MAGNESIUM BLD Lab STAT Malignant neoplasm of right kidney, except renal pelvis (HCC) Expected: 08/05/2021, Expires: 08/06/2021 [facility] Work Phone: Comment on above: Expected: 08/05/2021 , Expires: 08/06/2021 Start: 08-05-2021 End: 08-06-2021 Phosphate [Mass/volume] in Serum or Plasma PHOSPHORUS INORGANIC Lab STAT Malignant neoplasm of right kidney, except renal pelvis (HCC) Expected: 08/05/2021, Expires: 08/06/2021 [facility] Work Phone: Comment on above: Expected: 08/05/2021 , Expires: 08/06/2021 Start: 08-05-2021 End: 08-06-2021 PT panel - Platelet poor plasma by Coagulation assay PROTHROMBIN TIME/PT Lab STAT Malignant neoplasm of right kidney, except renal pelvis (HCC) Expected: 08/05/2021, Expires: 08/06/2021 [facility] Work Phone: Comment on above: Expected: 08/05/2021 , Expires: 08/06/2021 Start: 08-05-2021 End: 08-06-2021 T3 FREE BLD T3 FREE BLD Lab STAT Malignant neoplasm of right kidney, except renal pelvis (HCC) Expected: 08/05/2021, Expires: 08/06/2021 [facility] Work Phone: Comment on above: Expected: 08/05/2021 , Expires: 08/06/2021 Start: 08-05-2021 End: 08-06-2021 T4 FREE/FREE THYROX T4 FREE/FREE THYROX Lab STAT Malignant neoplasm of right kidney, except renal pelvis (HCC) Expected: 08/05/2021, Expires: 08/06/2021 [facility] Work Phone: Comment on above: Expected: 08/05/2021 , Expires: 08/06/2021 Start: 08-05-2021 End: 08-06-2021 Thyrotropin [Units/volume] in Serum or Plasma TSH BLD Lab STAT Malignant neoplasm of right kidney, except renal pelvis (HCC) Expected: 08/05/2021, Expires: 08/06/2021 [facility] Work Phone: Comment on above: Expected: 08/05/2021 , Expires: 08/06/2021 Start: 08-05-2021 End: 08-06-2021 Urate [Mass/volume] in Serum or Plasma URIC ACID BLOOD Lab STAT Malignant neoplasm of right kidney, except renal pelvis (HCC) Expected: 08/05/2021, Expires: 08/06/2021 [facility] Work Phone: Comment on above: Expected: 08/05/2021 , Expires: 08/06/2021 Start: 07-31-2021 End: 09-30-2021 CBC W Auto Differential panel - Blood CBC + DIFF Lab Routine Renal cell carcinoma, unspecified laterality (HCC) Expected: 07/31/2021, Expires: 09/30/2021 [facility] Work Phone: Comment on above: Expected: 07/31/2021 , Expires: 09/30/2021 Start: 07-31-2021 End: 09-30-2021 Comprehensive metabolic 2000 panel - Serum or Plasma COMP METABOLIC PANEL Lab Routine Renal cell carcinoma, unspecified laterality (HCC) Expected: 07/31/2021, Expires: 09/30/2021 [facility] Work Phone: Comment on above: Expected: 07/31/2021 , Expires: 09/30/2021 Start: 07-24-2021 End: 07-25-2021 aPTT in Platelet poor plasma by Coagulation assay ACTIVATED PTT Lab STAT Malignant neoplasm of right kidney, except renal pelvis (HCC) Expected: 07/24/2021, Expires: 07/25/2021 [facility] Work Phone: Comment on above: Expected: 07/24/2021 , Expires: 07/25/2021 Start: 07-24-2021 End: 07-25-2021 CBC W Auto Differential panel - Blood CBC + DIFF Lab STAT Malignant neoplasm of right kidney, except renal pelvis (HCC) Expected: 07/24/2021, Expires: 07/25/2021 [facility] Work Phone: Comment on above: Expected: 07/24/2021 , Expires: 07/25/2021 Start: 07-24-2021 End: 07-25-2021 CLINICAL TRIAL DRAW CLINICAL TRIAL DRAW Lab STAT Malignant neoplasm of right kidney, except renal pelvis (HCC) Expected: 07/24/2021, Expires: 07/25/2021 [facility] Work Phone: Comment on above: Expected: 07/24/2021 , Expires: 07/25/2021 Start: 07-24-2021 End: 07-25-2021 Comprehensive metabolic 2000 panel - Serum or Plasma COMP METABOLIC PANEL Lab STAT Malignant neoplasm of right kidney, except renal pelvis (HCC) Expected: 07/24/2021, Expires: 07/25/2021 [facility] Work Phone: Comment on above: Expected: 07/24/2021 , Expires: 07/25/2021 Start: 07-24-2021 End: 07-25-2021 Lactate dehydrogenase [Enzymatic activity/volume] in Serum or Plasma LD LACTATE DEHYDRO Lab STAT Malignant neoplasm of right kidney, except renal pelvis (HCC) Expected: 07/24/2021, Expires: 07/25/2021 [facility] Work Phone: Comment on above: Expected: 07/24/2021 , Expires: 07/25/2021 Start: 07-24-2021 End: 07-25-2021 Magnesium [Mass/volume] in Serum or Plasma MAGNESIUM BLD Lab STAT Malignant neoplasm of right kidney, except renal pelvis (HCC) Expected: 07/24/2021, Expires: 07/25/2021 [facility] Work Phone: Comment on above: Expected: 07/24/2021 , Expires: 07/25/2021 Start: 07-24-2021 End: 07-25-2021 Phosphate [Mass/volume] in Serum or Plasma PHOSPHORUS INORGANIC Lab STAT Malignant neoplasm of right kidney, except renal pelvis (HCC) Expected: 07/24/2021, Expires: 07/25/2021 [facility] Work Phone: Comment on above: Expected: 07/24/2021 , Expires: 07/25/2021 Start: 07-24-2021 End: 07-25-2021 PT panel - Platelet poor plasma by Coagulation assay PROTHROMBIN TIME/PT Lab STAT Malignant neoplasm of right kidney, except renal pelvis (HCC) Expected: 07/24/2021, Expires: 07/25/2021 [facility] Work Phone: Comment on above: Expected: 07/24/2021 , Expires: 07/25/2021 Start: 07-24-2021 End: 07-25-2021 Urate [Mass/volume] in Serum or Plasma URIC ACID BLOOD Lab STAT Malignant neoplasm of right kidney, except renal pelvis (HCC) Expected: 07/24/2021, Expires: 07/25/2021 [facility] Work Phone: Comment on above: Expected: 07/24/2021 , Expires: 07/25/2021 Start: 07-15-2021 End: 07-16-2021 aPTT in Platelet poor plasma by Coagulation assay ACTIVATED PTT Lab STAT Malignant neoplasm of right kidney, except renal pelvis (HCC) Expected: 07/15/2021, Expires: 07/16/2021 [facility] Work Phone: Comment on above: Expected: 07/15/2021 , Expires: 07/16/2021 Start: 07-15-2021 End: 07-16-2021 CBC W Auto Differential panel - Blood CBC + DIFF Lab STAT Malignant neoplasm of right kidney, except renal pelvis (HCC) Expected: 07/15/2021, Expires: 07/16/2021 [facility] Work Phone: Comment on above: Expected: 07/15/2021 , Expires: 07/16/2021 Start: 07-15-2021 End: 07-16-2021 Comprehensive metabolic 2000 panel - Serum or Plasma COMP METABOLIC PANEL Lab STAT Malignant neoplasm of right kidney, except renal pelvis (HCC) Expected: 07/15/2021, Expires: 07/16/2021 [facility] Work Phone: Comment on above: Expected: 07/15/2021 , Expires: 07/16/2021 Start: 07-15-2021 End: 07-16-2021 Lactate dehydrogenase [Enzymatic activity/volume] in Serum or Plasma LD LACTATE DEHYDRO Lab STAT Malignant neoplasm of right kidney, except renal pelvis (HCC) Expected: 07/15/2021, Expires: 07/16/2021 [facility] Work Phone: Comment on above: Expected: 07/15/2021 , Expires: 07/16/2021 Start: 07-15-2021 End: 07-16-2021 Magnesium [Mass/volume] in Serum or Plasma MAGNESIUM BLD Lab STAT Malignant neoplasm of right kidney, except renal pelvis (HCC) Expected: 07/15/2021, Expires: 07/16/2021 [facility] Work Phone: Comment on above: Expected: 07/15/2021 , Expires: 07/16/2021 Start: 07-15-2021 End: 07-16-2021 Phosphate [Mass/volume] in Serum or Plasma PHOSPHORUS INORGANIC Lab STAT Malignant neoplasm of right kidney, except renal pelvis (HCC) Expected: 07/15/2021, Expires: 07/16/2021 [facility] Work Phone: Comment on above: Expected: 07/15/2021 , Expires: 07/16/2021 Start: 07-15-2021 End: 07-16-2021 PT panel - Platelet poor plasma by Coagulation assay PROTHROMBIN TIME/PT Lab STAT Malignant neoplasm of right kidney, except renal pelvis (HCC) Expected: 07/15/2021, Expires: 07/16/2021 [facility] Work Phone: Comment on above: Expected: 07/15/2021 , Expires: 07/16/2021 Start: 07-15-2021 End: 07-16-2021 T3 FREE BLD T3 FREE BLD Lab STAT Malignant neoplasm of right kidney, except renal pelvis (HCC) Expected: 07/15/2021, Expires: 07/16/2021 [facility] Work Phone: Comment on above: Expected: 07/15/2021 , Expires: 07/16/2021 Start: 07-15-2021 End: 07-16-2021 T4 FREE/FREE THYROX T4 FREE/FREE THYROX Lab STAT Malignant neoplasm of right kidney, except renal pelvis (HCC) Expected: 07/15/2021, Expires: 07/16/2021 [facility] Work Phone: Comment on above: Expected: 07/15/2021 , Expires: 07/16/2021 Start: 07-15-2021 End: 07-16-2021 Thyrotropin [Units/volume] in Serum or Plasma TSH BLD Lab STAT Malignant neoplasm of right kidney, except renal pelvis (HCC) Expected: 07/15/2021, Expires: 07/16/2021 [facility] Work Phone: Comment on above: Expected: 07/15/2021 , Expires: 07/16/2021 Start: 07-15-2021 End: 07-16-2021 Urate [Mass/volume] in Serum or Plasma URIC ACID BLOOD Lab STAT Malignant neoplasm of right kidney, except renal pelvis (HCC) Expected: 07/15/2021, Expires: 07/16/2021 [facility] Work Phone: Comment on above: Expected: 07/15/2021 , Expires: 07/16/2021 Start: 06-24-2021 End: 08-24-2021 PT panel - Platelet poor plasma by Coagulation assay PROTHROMBIN TIME/PT Lab STAT Mass of right chest wall Expected: 06/24/2021, Expires: 08/24/2021 [facility] Work Phone: Comment on above: Expected: 06/24/2021 , Expires: 08/24/2021 Start: 06-23-2021 End: 07-23-2022 Bone &/joint imaging whole body NM BONE WHOLE BODY Radiology Routine Malignant neoplasm of kidney, unspecified laterality (HCC) Malignant neoplasm of kidney excluding renal pelvis, unspecified laterality (HCC) Expected: 06/23/2021 (Approximate), Expires: 07/23/2022 [facility] Work Phone: Comment on above: Expected: 06/23/2021 (Approximate), Expires: 07/23/2022 Start: 06-23-2021 End: 07-23-2022 Ct abdomen & pelvis w/contrast material CT ABD/PEL W IVCON Radiology Routine Malignant neoplasm of kidney, unspecified laterality (HCC) Malignant neoplasm of kidney excluding renal pelvis, unspecified laterality (HCC) Expected: 06/23/2021 (Approximate), Expires: 07/23/2022 [facility] Work Phone: Comment on above: Expected: 06/23/2021 (Approximate), Expires: 07/23/2022 Start: 06-23-2021 End: 07-23-2022 Ct abdomen & pelvis w/o contrast material CT ABD/PEL WO IVCON Radiology Routine Malignant neoplasm of kidney, unspecified laterality (HCC) Malignant neoplasm of kidney excluding renal pelvis, unspecified laterality (HCC) Expected: 06/23/2021, Expires: 07/23/2022 [facility] Work Phone: Comment on above: Expected: 06/23/2021 , Expires: 07/23/2022 Start: 05-21-2021 COVID-19 VACCINE (4 - Booster for Pfizer series) COVID-19 VACCINE (4 - Booster for Pfizer series) [facility] Start: 04-23-2021 COVID-19 VACCINE (4 - Booster for Pfizer series) COVID-19 VACCINE (4 - Booster for Pfizer series) [facility] Start: 04-15-2021 COVID-19 VACCINE (4 - Booster for Pfizer series) COVID-19 VACCINE (4 - Booster for Pfizer series) [facility] Start: 03-18-2021 COVID-19 VACCINE (4 - Booster for Pfizer series) COVID-19 VACCINE (4 - Booster for Pfizer series) [facility] Start: 03-08-2021 DEPRESSION ASSESSMENT DEPRESSION ASS ESSMENT [facility] Start: 11-19-2020 Colonoscopy COLONOSCOPY [facility] Start: 11-19-2020 COLORECTAL CANCER SCREENING COLORECTAL CANCER SCREENING [facility] Start: 11-19-2020 Screening for malign ant neoplasm of colon [facility] Start: 11-05-2020 Hepatitis B surface antibody level LDL CHOLESTEROL [facility] Start: 07-28-2019 FECAL OCCULT BLOOD FECAL OCCULT BLOO D [facility] Start: 07-28-2019 Screening for malign ant neoplasm of colon Fecal Occult Blood [facility] Start: 03-16-2017 Adult depression scr eening assessment DEPRESSION SCREENING [facility] Start: 01-01-2014 Measurement of occul t blood in single stool specimen FIT [facility] Start: 01-01-2014 Screening for malign ant neoplasm of colon CRC Screening [facility] Start: 01-01-2014 Shingles (RZV) Vacci ne (1 of 2) Shingles (RZV) Vaccine (1 of 2) [facility] Start: 01-01-2014 SHINGRIX VACCINE (1 of 2) ROSS GRIX VACCINE (1 of 2) [facility] Start: 01-01-2009 COLOGUARD (FIT-DNA) COLOGUARD (FIT-D NA) [facility] Start: 01-01-[address] COLONOGRAPHY [facility] Start: 01-01-2009 Screening for malign ant neoplasm of colon [facility] Start: 01-01-2009 SIGMOIDOSCOPY SIGMOIDOSCOPY [facility] Start: 01-01-1999 [facility] Start: 01-01-1983 ONE PNEUMOVAX PRIOR TO AGE 65 ONE PNEUMOVAX PRIOR TO AGE 64 [facility] Start: 01-01-1983 SHINGRIX VACCINE (1 of 2) ROSS GRIX VACCINE (1 of 2) [facility] Start: 01-01-1982 Anxiety Screening Anxiety Screening [facility] Start: 01-01-1982 BP CONTROLLED (<130/80) BP CON TROLLED (<130/80) [facility] Start: 01-01-1982 Depression Screening Depression Scre ening [facility] Start: 01-01-1982 Hepatitis C screening Hepatitis C An tibody [facility] Start: 01-01-1982 Tetanus + diphtheria + acellular pertussis vaccine (product) Tdap Booster [facility] Start: 01-01-1979 HIV screening HIV [facility] Start: 01-01-1970 PNEUMOCOCCAL (1 - PCV) PNEUMOCOCCAL (1 - PCV) [facility] Start: 1965 COVID-19 Vaccine (#1) COVID-19 Vacci ne (#1) [facility] Start: 1965 HEPATITIS B (1 of 3 - 3-dose series) HEPATITIS B (1 of 3 - 3-dose series) [facility] Start: 1965 Screening for malign ant neoplasm of colon Colonoscopy [facility] Basic metabolic 2008 panel with ionized calcium - Serum or Plasma [facility] Basic metabolic 2008 panel with ionized calcium - Serum or Plasma [facility] Biopsy bone trocar/n eedle superficial IMAGING GUIDED BIOPSY RIB/BONY PELVIS/STERNUM/SPINOUS PROCESS Radiology Routine Malignant neoplasm of kidney, unspecified laterality (HCC) Malignant neoplasm of kidney excluding renal pelvis, unspecified laterality (HCC) Ordered: 06/23/2021 [facility] Work Phone: Comment on above: Ordered: 06/23/2021 Bone &/joint imaging whole body NM BONE WHOLE BODY Radiology Routine Renal cell carcinoma of right kidney (HCC) Ordered: 03/11/2022 [facility] Work Phone: Comment on above: Ordered: 03/11/2022 CBC W Auto Different ial panel - Blood [facility] CBC W Auto Different ial panel - Blood [facility] CBC W Auto Different ial panel - Blood [facility] CLINICAL TRIAL DRAW CLINICAL TRI AL DRAW Lab STAT Malignant neoplasm of right kidney, except renal pelvis (HCC) 08/08/2021 9:04 AM EDT [facility] Work Phone: End: 08-27-2022 Ct abdomen & pelvis w/contrast material CT ABD/PEL W IVCON Radiology Routine Malignant neoplasm of right kidney, except renal pelvis (HCC) Malignant neoplasm of kidney excluding renal pelvis, unspecified laterality (HCC) 1 Occurrences starting 07/28/2021 until 08/27/2022 [facility] Work Phone: Comment on above: 1 Occurrences starti ng 07/28/2021 until 08/27/2022 End: 09-19-2022 Ct abdomen & pelvis w/contrast material CT ABD/PEL W IVCON Radiology Routine Malignant neoplasm of right kidney, except renal pelvis (HCC) Malignant neoplasm of kidney excluding renal pelvis, unspecified laterality (HCC) 1 Occurrences starting 08/21/2021 until 09/19/2022 [facility] Work Phone: Comment on above: 1 Occurrences starti ng 08/21/2021 until 09/19/2022 Ct abdomen & pelvis w/contrast material CT ABD/PEL W IVCON Radiology Routine Renal cell carcinoma of right kidney (HCC) Ordered: 03/11/2022 [facility] Work Phone: Comment on above: Ordered: 03/11/2022 CT Abdomen and Pelvi s WO contrast [facility] CT CHEST W IVCON CT CHEST W IVCO N Radiology Routine Renal cell carcinoma of right kidney (HCC) Ordered: 03/11/2022 [facility] Work Phone: Comment on above: Ordered: 03/11/2022 CT Chest WO contrast [facility] End: 09-19-2022 Ct thorax w/contrast material CT CHEST W IVCON Radiology Routine Malignant neoplasm of right kidney, except renal pelvis (HCC) Malignant neoplasm of kidney excluding renal pelvis, unspecified laterality (HCC) 1 Occurrences starting 08/21/2021 until 09/19/2022 [facility] Work Phone: Comment on above: 1 Occurrences starti ng 08/21/2021 until 09/19/2022 End: 07-11-2022 ECG COMPLETE ECG COMPLETE ECG Routine Malignant neoplasm of right kidney, except renal pelvis (HCC) 1 Occurrences starting 07/11/2021 until 07/11/2022 [facility] Work Phone: Comment on above: 1 Occurrences starti ng 07/11/2021 until 07/11/2022 ECG COMPLETE [facility] End: 12-30-2022 ECG COMPLETE ECG COMPLETE ECG Routine Renal cell carcinoma of right kidney (HCC) 1 Occurrences starting 12/30/2021 until 12/30/2022 [facility] Work Phone: Comment on above: 1 Occurrences starti ng 12/30/2021 until 12/30/2022 End: 02-16-2023 ECHO LIMITED ECHO LIMITED Cardiology Routine Acute decompensated heart failure (HCC) Paroxysmal atrial fibrillation (HCC) 1 Occurrences starting 02/16/2022 until 02/16/2023 [facility] Work Phone: Comment on above: 1 Occurrences starti ng 02/16/2022 until 02/16/2023 End: 07-11-2022 Echocardiography ECHO Cardiology Routine Malignant neoplasm of right kidney, except renal pelvis (HCC) 1 Occurrences starting 07/11/2021 until 07/11/2022 [facility] Work Phone: Comment on above: 1 Occurrences starti ng 07/11/2021 until 07/11/2022 Elastase.pancreatic [Presence] in Stool [facility] INR in Blood by Coagulation assay [facility] INR in Blood by Coagulation assay [facility] INR in Blood by Coagulation assay [facility] Lactate dehydrogenas e measurement [facility] Magnesium [Mass/volu me] in Serum or Plasma [facility] Magnesium measurement [facility] Magnesium measurement [facility] End: 09-07-2022 Mri abdomen w/o & w/contrast material MRI KIDNEY WO/W IVCON Radiology Routine Other specified disorders of kidney and ureter 1 Occurrences starting 08/08/2021 until 09/07/2022 [facility] Work Phone: Comment on above: 1 Occurrences starti ng 08/08/2021 until 09/07/2022 End: 08-13-2022 Mri brain brain stem w/o w/contrast material MRI BRAIN WO/W IVCON Radiology Routine Malignant neoplasm of kidney excluding renal pelvis, unspecified laterality (HCC) Renal cell carcinoma, unspecified laterality (HCC) 1 Occurrences starting 07/14/2021 until 08/13/2022 [facility] Work Phone: Comment on above: 1 Occurrences starti ng 07/14/2021 until 08/13/2022 NM Heart Views W str ess and W radionuclide IV [facility] End: 07-22-2022 OUTSIDE LISA OUTSIDE LISA Cardiology Routine Nonrheumatic mitral valve regurgitation 1 Occurrences starting 07/22/2021 until 07/22/2022 [facility] Work Phone: Comment on above: 1 Occurrences starti ng 07/22/2021 until 07/22/2022 Ova and parasites identified in Unspecified specimen by Light microscopy [facility] Ova OR parasites identification [facility] Patient Education [facility] Work Phone: Patient referral [facility] Work Phone: End: 08-19-2022 Polysomnogram POLYSOMNOGRAM (PSG) Procedures Routine Disturbance in sleep behavior 1 Occurrences starting 08/19/2021 until 08/19/2022 [facility] Work Phone: Comment on above: 1 Occurrences starti ng 08/19/2021 until 08/19/2022 Protein measurement [facility] End: 01-29-2023 Radiologic exam chest 2 views XR CHEST 2V FRONTAL/LAT Radiology Routine Renal cell carcinoma of right kidney (HCC) 1 Occurrences starting 12/30/2021 until 01/29/2023 [facility] Work Phone: Comment on above: 1 Occurrences starti ng 12/30/2021 until 01/29/2023 Respiratory Panel (PCR) Respirat ory Panel (PCR) [facility] Respiratory pathogen s DNA and RNA 12b panel - Unspecified specimen by SANDOVAL with probe detection [facility] T3 FREE BLD T3 FREE BLD Lab STAT Malignant neoplasm of right kidney, except renal pelvis (HCC) 07/21/2021 7:53 AM EDT [facility] Work Phone: T4 FREE/FREE THYROX T4 FREE/FREE THYROX Lab STAT Malignant neoplasm of right kidney, except renal pelvis (HCC) 07/21/2021 7:53 AM EDT [facility] Work Phone: Thyroid stimulating hormone measurement [facility] Troponin I measurement [facility] Work Phone: Troponin I measurement [facility] URINALYSIS, REFLEX MICROSCOPIC URINALYSIS, REFLEX MICROSCOPIC Lab Routine Screening for genitourinary condition Ordered: 01/23/2022 [facility] Work Phone: Comment on above: Ordered: 01/23/2022 [facility] Work Phone: [facility] Immunizations Immunization Date Immunization Notes Care Provider Koki brunson 01-21-2021 Pfizer-BioNTech COVID-19 Vacc 30 MCG/0.3ML Intramuscular Suspension Daksha Turner Work Phone: [facility] 06-20-2020 Covid (Pfizer) Dr. Janusz Turner Work Phone: [facility] 06-15-2020 Pfizer-BioNTech COVID-19 Vacc 30 MCG/0.3ML Intramuscular Suspension Daksha Turner Work Phone: [facility] 05-25-2020 Pfizer-BioNTech COVID-19 Vacc 30 MCG/0.3ML Intramuscular Suspension Daksha Turner Work Phone: [facility] 07-25-2018 tetanus toxoid, reduced diphtheria toxoid, and acellular pertussis vaccine, adsorbed Dawit Carlitos MD Work Phone: [facility] 12-06-2013 influenza, seasonal, injectable Dawit Urbina MD Work Phone: [facility] 12-06-2013 influenza virus vaccine, unspecified formulation Noreen Morejon Work Phone: [facility] Date of Pneumonia Vaccine: Family Unavailable [facility] Work Phone: Payers Date Payer Category Payer Medicare [id number] 2023 Self-pay [id number] 2023 Self-pay [id number] 2023 Medicare [id number] 2020 Unknown [employer] [id number] 2020-Present [phone] [address] [place] [address] [id number]. [id number] 2018 Unknown [id number] [id number]. [id number] 2016 Unknown [id number] 2015 Unknown [employer] [id number] 2015-Present [phone] [address] [place] [address] [id number] 1.2.840.148596.1.13.159.2. 7.3.848041.315 2008 Unknown [employer] [id number] 2008-Present [phone] [address] [place] [address] [id number] 1.2.840.068555.1.13.159.2. 7.3.470040.315 2008 Worker's Compensation [employer] - S[employer]ED [employer] [id number] 2008-Present [phone] [address] [place] [address] Worker's Comp [id number] .3.419354.315 2006 Unknown [id number] 1965 Unknown [id number] 2.16.840.1.185583.3.579.2. 1069 1964 Unknown [id number] 2.16840.1.637958.3.579.2. 1069 1964 Unknown [id number] 2.16.840.1.756150.3.579.2. 356 1964 Unknown [id number] 2.16.840.1.826223.3.579.2. 356 Medicare [id number] Unknown [id number] 2.16.840.1.759093.3.579.2. 277 Unknown [id number] 2.16.840.1.957107.3.579.2. 462 Unknown [id number] 2.16.840.1.952256.3.579.2. 462 Unknown [id number] 2.16.840.1.040219.3.579.2. 462 Unknown [id number] 2.16.840.1.108037.3.579.2. 462 Unknown [id number] 2.16.840.1.096961.3.579.2. 462 Unknown [id number] 2.16.840.1.937131.3.579.2. 462 Unknown [id number] 2.16.840.1.914023.3.579.2. 462 Unknown [id number] 2.16.840.1.819619.3.579.2. 462 Unknown [id number] 2.16.840.1.370248.3.579.2. 462 Unknown [id number] 2.16.840.1.377188.3.579.2. 462 Unknown [id number] 2.16.840.1.128839.3.579.2. 462 Unknown [id number] 2.16.840.1.488589.3.579.2. 462 Unknown [id number] 2.16840.1.709310.3.579.2. 462 Unknown [id number] 2.840.1.075433.3.579.2. 462 Unknown [id number] 2.840.1.601402.3.579.2. 462 Unknown [id number] 2.840.1.201423.3.579.2. 462 Unknown [id number] 2.840.1.685048.3.579.2. 462 Unknown [id number] 2.840.1.861786.3.579.2. 462 Unknown [id number] 2.16840.1.933618.3.579.2. 462 Unknown [id number] 2.840.1.993579.3.579.2. 462 Unknown [id number] 2.16840.1.175380.3.579.2. 462 Unknown [id number] 2.16.840.1.608199.3.579.2. 462 Unknown [id number] 2.16.840.1.873238.3.579.2. 462 Unknown [id number] 2.16.840.1.179883.3.579.2. 462 Unknown [id number] 2.16840.1.968160.3.579.2. 462 Unknown [id number] 2.16.840.1.346858.3.579.2. 462 Unknown [id number] 2.16.840.1.327417.3.579.2. 462 Unknown [id number] 2.16.840.1.600062.3.579.2. 462 Unknown [id number] 2.16.840.1.362640.3.579.2. 462 Unknown [id number] 2.16.840.1.192995.3.579.2. 462 Unknown [id number] 2.16.840.1.894763.3.579.2. 462 Social History Date Type Detail Facility Start: 06-19-2021 End: 10-09-2021 Tobacco smoking status NHIS Never smoker [facility] Start: 1965 Sex Assigned At Male S [facility] Start: 08-19-2021 End: 10-19-2024 Tobacco smoking status NHIS Smokes tobacco daily [facility] Work Phone: History of tobacco use Cigarette Smoker [facility] Work Phone: Start: 06-20-2021 End: 12-09-2021 Alcohol intake Current drinker of alcohol (finding) [facility] Start: 1965 Sex Assigned At Not on file C [facility] Start: 06-10-2021 End: 01-19-2022 Exposure to SARS-CoV-2 (event) Not sure [facility] Start: 07-01-2021 End: 11-28-2021 Exposure to SARS-CoV-2 (event) Unable to assess [facility] Start: 06-04-2019 End: 12-15-2022 Tobacco smoking status NHIS Unknown if ever smoked [facility] Work Phone: Start: 06-04-2019 Spouse/ Signif icant Other [facility] Start: 06-04-2019 Secondhand [facility] Start: 08-19-2021 End: 12-09-2021 Tobacco Comment former cigarettes, now cigars 3 per day [facility] Start: 08-19-2021 End: 10-09-2021 Cigarettes smoked current (pack per day) - Reported 0.3 [facility] Start: 08-19-2021 End: 02-16-2022 Tobacco use and exposure Smokeless tobacco non-user [facility] Start: 10-27-2021 History SDOH Alcohol Comment 3 times a week per pt 10/27/2021 [facility] History of tobacco use Cigar Smoker [facility] Start: 02-16-2022 Tobacco smoking status NHIS Ex-smoker [facility] History of tobacco use Current smoker [facility] Start: 02-16-2022 End: 02-17-2022 Alcohol intake Ex-drinker (finding) [facility] Start: 02-16-2022 Tobacco Comment About a month ago smoked cigars About 3-4 years from last time smoked cigarettes [facility] Adult Depression Screening Assessment 1 [facility] Start: 06-06-2024 End: 06-22-2024 Sex Male (finding) [facility] NEGATED: Highlighted rowStart: NINF History of tobacco use Passive smoker [facility] Goals Date Patient Goal Desired Activity /State Functional Status Date Assessment Result Facility 10-21-2024 Functional status Ambulates [facility] Work Phone: 10-21-2024 Functional status Ambulates [facility] Work Phone: 12-17-2022 Functional status Ambulates [facility] Work Phone: 06-29-2022 Functional status Ambulates [facility] Work Phone: 05-20-2022 Functional status Activity Ability [facility] Work Phone: 05-20-2022 Functional status Patient Activity Bedres t [facility] Work Phone: 04-16-2022 Functional status Activity Ability [facility] Work Phone: 04-16-2022 Functional status Ambulates;Up ad haley [facility] Work Phone: 12-09-2021 Functional status Ambulates [facility] Work Phone: 12-08-2021 Functional status None [facility] Work Phone: Functional observable [facility] Mental Status Date Assessment Result Facility 10-21-2024 Cognitive function Voice/Name [facility] Work Phone: 10-21-2024 Cognitive function Voice/Name [facility] Work Phone: 10-18-2024 Cognitive function Level Of Cons ciousness Awake;Alert;Appropriate;Follo [facility] Work Phone: 12-17-2022 Cognitive function Voice/Name [facility] Work Phone: 06-29-2022 Cognitive function Voice/Name [facility] Work Phone: 06-27-2022 Cognitive function Voice/Name [facility] Work Phone: 05-20-2022 Cognitive function Voice/Name [facility] Work Phone: 04-16-2022 Cognitive function Voice/Name [facility] Work Phone: 02-06-2022 Cognitive functi ons [id number] [facility] 01-20-2022 Cognitive function Awake;Alert;A ppropriate;Follo [facility] Work Phone: 12-09-2021 Cognitive function Voice/Name [facility] Work Phone: 12-07-2021 Cognitive function Voice/Name [facility] Work Phone: Clinical Notes 06-30-2004 to 10-21-2024 Note Date & Type Note Facility 10-21-2024 Note [facility] Medical Records Department [address] [place] [address] Discharge Summary 10/21/24 1441 MR#: [id number] Acct: [id number] Name: YEFRI YANEZ Rep #: [id number] : 1965 59 From: Marquise Padilla MD PCP: Dr. Daksha Turner MD Status:DIS IN Location: [place] [id number] Providers Date of Admission: 10/19/24 Primary Care Physician: Dr. Daksha Turner MD Consultations 10/19/24 06:16 Consult: Gastroenterology Routine Consulting Provider: Ap Gastroenterology Reason for Consult: Chronic Diarrhea. EMERGENT Consult: No MD Notified: Yes Date Notified: 10/19/24 Time Notified: 09:23 Method of Notification: Text Reason For Visit: DIARRHEA, HYPOTENSION, HX OF RIGHT NEPHRECTOMY Diagnosis Discharge Diagnosis (1) Diarrhea: Status: Acute Code(s): R19.7 - Diarrhea, unspecified Qualifiers: Diarrhea type: presumed infectious Qualified Code(s): R19.7 - Diarrhea, unspecified (2) Hypotension due to hypovolemia: Status: Acute Code(s): E86.1 - Hypovolemia Medications at Discharge Home Medications albuterol sulfate 2.5 mg/3 mL (0.083 %) solution for nebulization 2.5 mg (3 mL) inhalation PRN PRN Shortness Of Breath #75 mL 06/29/22 ferrous sulfate 325 mg (65 mg iron) tablet 325 mg PO BID supplement #30 tabs 06/29/22 fluticasone fur. 100 mcg-umeclid 62.5 mcg-vilant 25 mcg inhalat.powder (Trelegy Ellipta) 1 inh inhalation DAILY breathing #28 ea 06/29/22 pantoprazole 40 mg tablet,delayed release 40 mg PO DAILY gerd #30 tabs 06/29/22 rosuvastatin 40 mg tablet 40 mg PO DAILY cholesterol #30 tabs 06/29/22 losartan 50 mg tablet 50 mg PO DAILY blood pressure #90 tabs 09/29/22 spironolactone 25 mg tablet 25 mg PO DAILY diuretic #90 tabs 09/29/22 Held on 10/21/24. Instructions: Resume on 10/23/24. carvedilol 12.5 mg tablet 12.5 mg PO BID blood pressure #180 TABLETS 06/04/24 semaglutide 0.25 mg or 0.5 mg (2 mg/3 mL) subcutaneous pen injector (Ozempic) 0.25 mg subcut QWEEK diabetes 06/20/24 cabozantinib 20 mg tablet 20 mg PO QDAY cancer 08/09/24 apixaban 5 mg tablet (Eliquis) 5 mg PO BID blood thinner #60 tabs 08/14/24 Handicap Placard #1 ea 10/02/24 bumetanide 2 mg tablet 2 mg PO ONCE water pill 10/02/24 Held on 10/21/24. Instructions: Resume on 10/23/24. calcitriol 0.25 mcg capsule 0.25 mcg PO QDAY supplement 10/02/24 dapagliflozin propanediol 5 mg tablet (Farxiga) 5 mg PO QDAY CKD 10/02/24 tizanidine 4 mg capsule 4 mg PO Q8H PRN muscle spasticity 10/02/24 loperamide 2 mg capsule 2 mg PO 4X/DAY PRN PRN diarrhea 10/19/24 mirtazapine 15 mg tablet 15 mg PO QHS antidepressant 10/19/24 Hospital Course Operations None Procedures None Summary of Care Provided Minutes Spent on Discharge: 33 Hospital Course: Per HPI: YEFRI YANEZ, is a 59 M with a past medical history of essential hypertension; on carvedilol twice daily, losartan, spironolactone and bumetanide, hyperlipidemia; on rosuvastatin, chronic tobacco abuse; with subsequent COPD, chronic hypoxic respiratory failure; on 3L NC continuous, obesity (class II); with BMI of 35.3 this admission, NIMCO; on CPAP, DM-2; of unknown control on dapagliflozin and semaglutide, chronic atrial fibrillation; s/p DCCV (2021) on apixaban twice daily, history of CHF; with preserved LVEF of 50% with mild concentric LVH, borderline global hypokinesis of the left ventricle and [id number] (1-2+) eccentric mitral valve insufficiency, mild (1+) tricuspid valve insufficiency and moderate (2+) eccentric aortic valve insufficiency on recent echocardiogram done here on September 25, 2024, history of metastatic renal cancer to the bone; s/p Right nephrectomy on cabozantinib followed by Dr. Botello of oncology, CKD; stage IIIb-IV, HIRA; on ferrous sulfate twice daily, depression; on sertraline, history of muscle spasms; on tizanidine twice daily as needed, GERD; on pantoprazole, chronic diarrhea (for months) and OA who presents to [facility] ER complaining of abdominal pain and diarrhea. Mr. Yanez reports his symptoms began approximately 1 week prior to admission with an acute worsening of his chronic diarrhea causing him to feel dehydrated. He also admits to generalized cramping abdominal pain in addition to bloating with nausea with the patient feeling like he is becoming dehydrated. He states his last colonoscopy was more than 10 years ago and he is interested to find solutions for his diarrhea because he is going to the bathroom frequently at night. He denies associated fever, chills, vomiting, constipation, blood in stools, recent antibiotics, known sick contacts, significant travel, dysuria, hematuria, headache or rash. In the ER he underwent CT scan of the abdomen and pelvis without contrast that revealed previous Right-sided nephrectomy with multifocal bone Metastatic disease and CXR that revealed Right (more content not included)... [facility] 10-21-2024 Discharge summary Note Date/Time October 21, 2024 7:38am [facility] Medical Records Department [address] [place] [address] Instructions for Home/Discharge Instructions 10/21/24 0734 MR#: [id number] Acct: [id number] Name: YEFRI YANEZ Rep #:[id number] : 1965 59 From: Marquise ogden MD PCP: Dr. Daksha Turner MD Status :ADM IN Discharge Instructions DC O2, CPAP, BIPAP needs Home O2 Discharge instructions: No Dressing / Incision Discharge Activity: Return to Normal Activity Dressing / Incision Call your doctor if you observe: Fever of 101 or Higher, Shortness of breath, Dizziness, Fainting spells, Swelling in the ankles, Chest pain and Increased palpitations (irregular heartbeat) Follow Up Care Test Results: Test results from this visit will be discussed in further detail at your follow-up appointment, if applicable. Discharge Plan Admission Admit Date/Time: 10/19/24 04:52 Attending Provider: Marquise Padilla Primary Care Provider: Daksha Turner Consulting Providers: Rahul Chavez Discharge Orders/Prescriptions Prescriptions: Continued losartan 50 mg tablet 50 mg PO DAILY Qty: 90 3RF Ozempic 0.25 mg or 0.5 mg (2 mg/3 mL) pen injector 0.25 mg subcut QWEEK Eliquis 5 mg tablet 5 mg PO BID Qty: 60 11RF dapagliflozin propanediol [Farxiga] 5 mg tablet 5 mg PO QDAY calcitriol 0.25 mcg capsule 0.25 mcg PO QDAY tizanidine 4 mg capsule 4 mg PO Q8H PRN (Reason: muscle spasticity) bumetanide 2 mg tablet 2 mg PO ONCE (DME) Handicap Placard See Rx Instructions .Route .MEDSUPPLY Qty: 1 0RF Rx Instructions: Exp: 10/13/2028 pantoprazole 40 mg tablet,delayed release (DR/EC) 40 mg PO DAILY Qty: 30 0RF ferrous sulfate 325 mg (65 mg iron) Tablet 325 mg PO BID Qty: 30 0RF rosuvastatin 40 mg Tablet 40 mg PO DAILY Qty: 30 0RF Trelegy Ellipta 100-62.5-25 mcg blister with device 1 inh inhalation DAILY Qty: 28 0RF loperamide 2 mg capsule 2 mg PO 4X/DAY PRN PRN (Reason: diarrhea) mirtazapine 15 mg tablet 15 mg PO QHS carvedilol 12.5 mg tablet 12.5 mg PO BID Qty: 180 3RF cabozantinib 20 mg tablet 20 mg PO QDAY Held spironolactone 25 mg tablet 25 mg PO DAILY Qty: 90 3RF Hold Instructions: Resume on 10/23/24. albuterol sulfate 2.5 mg /3 mL (0.083 %) solution for nebulization 2.5 mg inhalation PRN PRN (Reason: Shortness Of Breath) Qty: 75 0RF Hold Instructions: Resume on 10/23/24. Discontinued potassium chloride 20 mEq tablet extended release 20 meq PO DAILY Qty: 30 0RF Referrals / Follow Up: Daksha Turner MD [Primary Care Provider] - Within 1 Week FriendSachin DO [Med Staff - Active Staff] - Within 1 Month Disposition Disposition (needs filled in before D/C Order can be placed): Home, Self Care 10/21/24 0738<Electronically signed by Marquise Padilla MD>Marquise Padilla MD CC: Dr. Daksha Turner MD; Dr. Rahul Chavez DO ~ Signed [facility] Work Phone: 1(336) 624-490608-16-2025 Discharge summary [facility] Medical Records Department [address] [place] [address] Instructions for Home/Discharge Instructions 10/21/24 0734 MR#: [id number] Acct: [id number] Name: YEFRI YANEZ Rep #:[id number] : 1965 59 From: Marquise ogden MD PCP: Dr. Daksha Turner MD Status :ADM IN Discharge Instructions DC O2, CPAP, BIPAP needs Home O2 Discharge instructions: No Dressing / Incision Discharge Activity: Return to Normal Activity Dressing / Incision Call your doctor if you observe: Fever of 101 or Higher, Shortness of breath, Dizziness, Fainting spells, Swelling in the ankles, Chest pain and Increased palpitations (irregular heartbeat) Follow Up Care Test Results: Test results from this visit will be discussed in further detail at your follow- up appointment, if applicable. Discharge Plan Admission Admit Date/Time: 10/19/24 04:52 Attending Provider: Marquise Padilla Primary Care Provider: Daksha Turner Consulting Providers: Rahul Chavez Discharge Orders/Prescriptions Prescriptions: Continued losartan 50 mg tablet 50 mg PO DAILY Qty: 90 3RF Ozempic 0.25 mg or 0.5 mg (2 mg/3 mL) pen injector 0.25 mg subcut QWEEK Eliquis 5 mg tablet 5 mg PO BID Qty: 60 11RF dapagliflozin propanediol [Farxiga] 5 mg tablet 5 mg PO QDAY calcitriol 0.25 mcg capsule 0.25 mcg PO QDAY tizanidine 4 mg capsule 4 mg PO Q8H PRN (Reason: muscle spasticity) bumetanide 2 mg tablet 2 mg PO ONCE (DME) Handicap Placard See Rx Instructions .Route .MEDSUPPLY Qty: 1 0RF Rx Instructions: Exp: 10/13/2028 pantoprazole 40 mg tablet,delayed release (DR/EC) 40 mg PO DAILY Qty: 30 0RF ferrous sulfate 325 mg (65 mg iron) Tablet 325 mg PO BID Qty: 30 0RF rosuvastatin 40 mg Tablet 40 mg PO DAILY Qty: 30 0RF Trelegy Ellipta 100-62.5-25 mcg blister with device 1 inh inhalation DAILY Qty: 28 0RF loperamide 2 mg capsule 2 mg PO 4X/DAY PRN PRN (Reason: diarrhea) mirtazapine 15 mg tablet 15 mg PO QHS carvedilol 12.5 mg tablet 12.5 mg PO BID Qty: 180 3RF cabozantinib 20 mg tablet 20 mg PO QDAY Held spironolactone 25 mg tablet 25 mg PO DAILY Qty: 90 3RF Hold Instructions: Resume on 10/23/24. albuterol sulfate 2.5 mg /3 mL (0.083 %) solution for nebulization 2.5 mg inhalation PRN PRN (Reason: Shortness Of Breath) Qty: 75 0RF Hold Instructions: Resume on 10/23/24. Discontinued potassium chloride 20 mEq tablet extended release 20 meq PO DAILY Qty: 30 0RF Referrals / Follow Up: Daksha Turner MD [Primary Care Provider] - Within 1 Week Friend,DO Sachin [Med Staff - Active Staff] - Within 1 Month Disposition Disposition (needs filled in before D/C Order can be placed): Home, Self Care 10/21/24 0738Marquise Padilla MD CC: Dr. Daksha Turner MD; Dr. Rahul Chavez DO ~ Signed [facility]08-15-2025 Progress note Author Marquise Padilla [facility] Note Date/Time October 20, 2024 4: 08pm [facility] Medical Records Department [address] [place] [address] Progress Note - Hospitalist 10/20/24 1536 MR#: [id number] Acct: [id number] Name: YEFRI YANEZ Rep #:[id number] : 1965 59 From: Marquise ogden MD PCP: Dr. Daksha Turner MD Status :ADM IN Location: [place] [address]- Subjective Subjective Being a little bit better today. Renal function is improved. Hemoglobin is down but this is dilutional. Objective Data Objective Data Vital Signs: Vital Signs Temp Pulse Resp BP Pulse Ox O2 Del Method O2 Flow Rate 96.4 F L 77 18 106/69 98 Nasal Cannula 3 10/20/24 15:28 10/20/24 15:28 10/20/24 15:28 10/20/24 15:28 10/20/24 15:28 10/20/24 15:28 10/20/24 15:28 Oxygen Flow Rate (L/min) 3 Oxygen Delivery Method Nasal Cannula Weight: 252 lb 13.923 oz Body Mass Index (BMI) 35.2 Intake & Output: Intake and Output for Last 24 Hours 10/19/24 10/20/24 10/21/24 03:59 03:59 03:59 Intake Total 1000 / 1000 3722.92 / 3722.92 600 / 600 Balance 1000 / 1000 3722.92 / 3722.92 600 / 600 Lab / Micro Data 10/20/24 06:45 10/20/24 06:45 Labs: Laboratory Results - last 24 hr 10/19/24 16:41: POC Glucose 78 10/19/24 20:34: POC Glucose 86 10/20/24 06:11: POC Glucose 95 10/20/24 06:45: WBC 4.4, RBC 3.78 L, Hgb 12.9 L, Hct 36.6 L, MCV 96.8 H, MCH 34.1 H, MCHC 35.2, RDW Std Deviation 64.3 H, RDW Coeff of Lizzie 18.2 H, Plt Count 165, MPV 11.0, Immature Gran % (Auto) 0.200, Neut % (Auto) 63.4, Lymph % (Auto) 21.9, Burt % (Auto) 10.7 H, Eos % (Auto) 3.6, Baso % (Auto) 0.2, Absolute Neuts (auto) 2.8, Absolute Lymphs (auto) 0.96, Nucleated RBC % 0, Sodium 137, Potassium 4.5, Chloride 108, Carbon Dioxide 21.0, Anion Gap 8, BUN 24 H, Creatinine 2.12 H, Estim Creat Clear Calc 47.73 L, Est GFR (MDRD) Non-Af 35 L, BUN/Creatinine Ratio 11.3, Glucose 76, Calcium 8.3, Magnesium 2.0 10/20/24 11:41: POC Glucose 81 Micro: Microbiology 10/19/24 06:40 Stool Stool Lactoferrin - Final 10/19/24 06:40 Stool Stool Occult Blood (STEVENSON) - Final Occult Blood Positive 10/18/24 22:00 Stool Enteric Bacteriology - Final 10/18/24 23:25 Mucosa - Nose SARS-CoV-2, Influenza & RSV (PCR) - Final 10/18/24 22:00 Stool Clostridioides difficile (PCR) - Final Physical Exam Narrative General: Alert, Oriented x3, Cooperative, No apparent distress HEENT: Atraumatic, PERRLA, EOMI, Normocephalic Oral: Moist Mucosa Neck: Supple, No JVD Lungs: Diminished, Normal air movement, No rhonchi, No wheeze, No rales Cardiovascular: Regular rate, Regular Rhythm, Normal S1, Normal S2, No murmurs Abdomen: Soft, Non Tender, Non-Distended, No Hepato-splenomegaly Extremities: No edema, Capillary Refill Less than 3 Seconds Skin: No rashes, No breakdown Musculoskeletal: No Tenderness to Palpation of Joints or Extremities Neurological: No focal neurological deficits, moves all extremities Psych/Mental Status: Normal Affect, Appropriate Assessment & Plan Assessment/Plan (1) Diarrhea: QUALIFIERS: Diarrhea type: presumed infectious Qualified Code(s):R19.7 - Diarrhea, unspecified (2) Hypotension due to hypovolemia: PLAN: Plan 1. Acute on chronic diarrhea with positive occult exacerbated by anticoagulation/hypotension due to dehydration ? Hemoglobin is not terrible, it is dropped to 12.9 but this is likely dilutional will recheck in the morning ? Stool studies so far have all come back negative though ova and parasites are pending. He denies any well water or fresh water interactions ? Continue to encourage p.o. intake ? He is complaining of gas pain, will order simethicone ? Appreciate GIs assistance ? Baseline renal function is around 2, peak creatinine on admission was 2.77 down to 2.12 today with IV fluids. He does have a history of CKD 3 we will continue to monitor ? Blood pressures are improved continue to hold his losartan but can continue with his Coreg ? CT of the abdomen pelvis negative for any acute pathology, he does endorse episodes of nausea and vomiting so this acute worsening could be related to a gastroenteritis ? Continue with Flagyl 2. Chronic systolic CHF/essential HTN/chronic A-fib/HLD ? Hold his losartan but continue with Coreg ? Will monitor his blood pressure make adjustments as necessary ? Continue with Eliquis and monitor his hemoglobin ? Continue with Lipitor ? Echo on 09/25/2024 with an EF of 50% with mild concentric LVH 3. CKD 3 in the setting of a right nephrectomy for metastatic renal cancer ? Renal function is returning to baseline ? Never quite reached the level of an VIMAL 4. DM2 ? Will hold his home meds ? Sliding scale insulin ? Accu-Cheks ACHS ? Will monitor and make adjustments as necessary ? A1c of 7 5. Iron deficiency anemia ? Continue with his iron supplementation 6. Anxiety/depression ? Stable ? Continue with his Zoloft 7. GERD ? Stable ? Continue with PPI DVT: Eliquis Charges/Coding Visit Charges Inpatient E&M: 27097 Subs Hosp L2 10/20/24 1608 <Electronically signed by Marquise Padilla MD> Cosigner Signature (if applicable): CC: ~ Signed [facility] Work Phone: 1(189) 832-148508-15-2025 Progress note [facility] Medical Records Department [address] [place] [address] Progress Note - Hospitalist 10/20/24 1536 MR#: [id number] Acct: [id number] Name: YEFRI YANEZ Rep #:[id number] : 1965 59 From: Marquise ogden MD PCP: Dr. Daksha Turner MD Status :ADM IN Location: [place] [address] Subjective Subjective Being a little bit better today. Renal function is improved. Hemoglobin is down but this is dilutional. Objective Data Objective Data Vital Signs: Vital Signs Temp Pulse Resp BP Pulse Ox O2 Del Method O2 Flow Rate 96.4 F L 77 18 106/69 98 Nasal Cannula 3 10/20/24 15:28 10/20/24 15:28 10/20/24 15:28 10/20/24 15:28 10/20/24 15:28 10/20/24 15:28 10/20/24 15:28 Oxygen Flow Rate (L/min) 3 Oxygen Delivery Method Nasal Cannula Weight: 252 lb 13.923 oz Body Mass Index (BMI) 35.2 Intake & Output: Intake and Output for Last 24 Hours 10/19/24 10/20/24 10/21/24 03:59 03:59 03:59 Intake Total 1000 / 1000 3722.92 / 3722.92 600 / 600 Balance 1000 / 1000 3722.92 / 3722.92 600 / 600 Lab / Micro Data 10/20/24 06:45 10/20/24 06:45 Labs: Laboratory Results - last 24 hr 10/19/24 16:41: POC Glucose 78 10/19/24 20:34: POC Glucose 86 10/20/24 06:11: POC Glucose 95 10/20/24 06:45: WBC 4.4, RBC 3.78 L, Hgb 12.9 L, Hct 36.6 L, MCV 96.8 H, MCH 34.1 H, MCHC 35.2, RDWStd Deviation 64.3 H, RDW Coeff of Lizzie 18.2 H, Plt Count 165, MPV 11.0, Immature Gran % (Auto) 0.200, Neut % (Auto) 63.4, Lymph % (Auto) 21.9, Burt % (Auto) 10.7 H, Eos % (Auto) 3.6, Baso % (Auto) 0.2, Absolute Neuts (auto) 2.8, Absolute Lymphs (auto) 0.96, Nucleated RBC % 0, Sodium 137, Potassium 4.5, Chloride 108, Carbon Dioxide 21.0, Anion Gap 8, BUN 24 H, Creatinine 2.12 H, Estim Creat Clear Calc 47.73 L, Est GFR (MDRD) Non-Af 35 L, BUN/Creatinine Ratio 11.3, Glucose 76, Calcium 8.3, Magnesium 2.0 10/20/24 11:41: POC Glucose 81 Micro: Microbiology 10/19/24 06:40 Stool Stool Lactoferrin - Final 10/19/24 06:40 Stool Stool Occult Blood (STEVENSON) - Final Occult Blood Positive 10/18/24 22:00 Stool Enteric Bacteriology - Final 10/18/24 23:25 Mucosa - Nose SARS-CoV-2, Influenza & RSV (PCR) - Final 10/18/24 22:00 Stool Clostridioides difficile (PCR) - Final Physical Exam Narrative General: Alert, Oriented x3, Cooperative, No apparent distress HEENT: Atraumatic, PERRLA, EOMI, Normocephalic Oral: Moist Mucosa Neck: Supple, No JVD Lungs: Diminished, Normal air movement, No rhonchi, No wheeze, No rales Cardiovascular: Regular rate, Regular Rhythm, Normal S1, Normal S2, No murmurs Abdomen: Soft, Non Tender, Non-Distended, No Hepato-splenomegaly Extremities: No edema, Capillary Refill Less than 3 Seconds Skin: No rashes, No breakdown Musculoskeletal: No Tenderness to Palpation of Joints or Extremities Neurological: No focal neurological deficits, moves all extremities Psych/Mental Status: Normal Affect, Appropriate Assessment & Plan Assessment/Plan (1) Diarrhea: QUALIFIERS: Diarrhea type: presumed infectious Qualified Code(s):R19.7 - Diarrhea, unspecified (2) Hypotension due to hypovolemia: PLAN: Plan 1. Acute on chronic diarrhea with positive occult exacerbated by anticoagulation/hypotension due todehydration ? Hemoglobin is not terrible, it is dropped to 12.9 but this is likely dilutional will recheck in the morning ? Stool studies so far have all come back negative though ova and parasites are pending. He denies any well water or fresh water interactions ? Continue to encourage p.o. intake ? He is complaining of gas pain, will order simethicone ? Appreciate GIs assistance ? Baseline renal function is around 2, peak creatinine on admission was 2.77 down to 2.12 today with IV fluids. He does have a history of CKD 3 we will continue to monitor ? Blood pressures are improved continue to hold his losartan but can continue with his Coreg ? CT of the abdomen pelvis negative for any acute pathology, he does endorse episodes of nausea andvomiting so this acute worsening could be related to a gastroenteritis ? Continue with Flagyl 2. Chronic systolic CHF/essential HTN/chronic A-fib/HLD ? Hold his losartan but continue with Coreg ? Will monitor his blood pressure make adjustments as necessary ? Continue with Eliquis and monitor his hemoglobin ? Continue with Lipitor ? Echo on 09/25/2024 with an EF of 50% with mild concentric LVH 3. CKD 3 in the setting of a right nephrectomy for metastatic renal cancer ? Renal function is returning to baseline ? Never quite reached the level of an VIMAL 4. DM2 ? Will hold his home meds ? Sliding scale insulin ? Accu-Cheks ACHS ? Will monitor and make adjustments as necessary ? A1c of 7 5. Iron deficiency anemia ? Continue with his iron supplementation 6. Anxiety/depression ? Stable ? Continue with his Zoloft 7. GERD ? Stable ? Continue with PPI DVT: Eliquis Charges/Coding Visit Charges Inpatient E&M: 12240 Subs Hosp L2 10/20/24 1608 Cosigner Signature (if applicable): CC: ~ Signed [facility]08-14-2025 Progress note Author Marquise Padilla [facility] Note Date/Time October 19, 2024 4: 38pm [facility] Medical Records Department [address] [place] [address] Progress Note 10/19/24 1637 MR#: [id number] Acct: [id number] Name: YEFRI YANEZ Rep #:[id number] : 1965 59 From: Marquise ogden MD PCP: Dr. Daksha Turner MD Status :ADM IN Location: [place] [address] Progress Note Blood pressures are little bit on the softer side so we will hold his Coreg today. Awaiting evaluation by gastroenterology secondary to his heme positive stools so far stool studies are negative though he does have stool lactoferrin coming back positive. His renal function does appear to be close to baseline wewill continue with his IV fluids for 2 bags. 10/19/241637 <Electronically signed by Marquise Padilla MD> Marquise Padilla MD Cosigner Signature (if applicable): CC: ~ Signed [facility] Work Phone: 1(535) 615-164208-14-2025 Progress note [facility] Medical Records Department [address] [place] [address] Progress Note 10/19/24 1637 MR#: [id number] Acct: [id number] Name: YEFRI YANEZ Rep #:[id number] : 1965 59 From: Marquise ogden MD PCP: Dr. Daksha Turner MD Status :ADM IN Location: [place] [address] Progress Note Blood pressures are little bit on the softer side so we will hold his Coreg today. Awaiting evaluation by gastroenterology secondary to his heme positive stools so far stool studies are negative though he does have stool lactoferrin coming back positive. His renal function does appear to be close to baseline wewill continue with his IV fluids for 2 bags. 10/19/24 5588 Marquise Padilla MD Cosigner Signature (if applicable): CC: ~ Signed [facility]08-14-2025 Discharge summary Author Veronica Jackson [facility] Note Date/Time October 19, 2024 10 :35am [facility] Medical Records Department [address] [place] [address] Emergency Department Summary 10/18/24 MR#: [id number] Acct: [id number] Name: YEFRI YANEZ Rep #:[id number] : 1965 59 From: Veronica Jackson MD PCP: Dr. Daksha Turner MD Status :ADM IN Location: [address] History of Present Illness Chief Complaint: General Illness Narrative Narrative: Patient is a 59-year-old male presenting to the emergency department for abdominal pain, nausea and feeling generally unwell for the past week. Patient has a past medical history of metastatic renal cell carcinoma to bone status post nephrectomy, A-fib, hypertension, hyperlipidemia and CHF. Patient states that he has had diarrhea for months. States he feels dehydrated from all the diarrhea. Reports that last week he developed generalized abdominal pain and bloating as well. Endorses nausea with no vomiting. Denies fever or chills. Denies chest pain. States he was feeling short of breath right when he got herebut he was not wearing oxygen this now no longer short of breath on his baseline3 L nasal cannula. Denies any dysuria or hematuria. Denies any blood in his stool. Denies any recent antibiotics. [facility] Medical History Atrial fibrillation Abnormal chest x-ray Warfarin-induced coagulopathy Chronic a-fib CKD (chronic kidney disease) CKD (chronic kidney disease), stage III Systolic CHF Tobacco use NIMCO on CPAP Metastatic renal cell carcinoma to bone Renal cell cancer Hyperlipidemia GERD (gastroesophageal reflux disease) COPD (chronic obstructive pulmonary disease) Atrial fibrillation Hypertension Home Medications ?Medication ?Instructions ?Recorded ?Last Taken ?Type albuterol sulfate 2.5 mg/3 mL 2.5 mg (3 mL) inhalation PRN PRN 06/29/22 Unknown Rx (0.083 %) solution for nebulization Shortness Of Breat h #75 mL ferrous sulfate 325 mg (65 mg 325 mg PO BID #30 tabs 0 06/29/22 Unknown Rx iron) tablet fluticasone fur. 100 mcg-umeclid 1 inh inhalation MONICA Y #28 ea 06/29/22 Unknown Rx 62.5 mcg-vilant 25 mcg inhalat.powder (Trelegy Ellipta) pantoprazole 40 mg tablet,delayed 40 mg PO DAILY gerd #30 tabs 06/29/22 Unknown Rx release potassium chloride 20 mEq 20 meq PO DAILY #30 tabs Unknown Rx tablet,extended release rosuvastatin 40 mg tablet 40 mg PO DAILY cholesterol # 30 tabs 06/29/22 Unknown Rx losartan 50 mg tablet 50 mg PO DAILY #90 tabs 09/06 07/28 Unknown Rx spironolactone 25 mg tablet 25 mg PO DAILY #90 tabs Unknown Rx carvedilol 12.5 mg tablet 12.5 mg PO BID #180 TABLETS 06/04/24 Unknown Rx semaglutide 0.25 mg or 0.5 mg (2 0.25 mg subcut QWEEK 06/20/24 Unknown History mg/3 mL) subcutaneous pen injector (Ozempic) cabozantinib 20 mg tablet 20 mg PO QDAY 08/09/24 Unkno wn History apixaban 5 mg tablet (Eliquis) 5 mg PO BID #60 tabs Unknown Rx Handicap Placard #1 ea 10/02/24 Unknown Rx bumetanide 2 mg tablet 2 mg PO ONCE 10/02/24 Unknow n History calcitriol 0.25 mcg capsule 0.25 mcg PO QDAY 10/02/24 Unknown History dapagliflozin propanediol 5 mg 5 mg PO QDAY 10/02/24 U nknown History tablet (Farxiga) sertraline 50 mg tablet 50 mg PO QDAY 10/02/24 Unkno wn History tizanidine 4 mg capsule 4 mg PO BID PRN 10/02/24 Unk nown History Allergy/AdvReac Type Severity Reaction Status Date / Time lisinopril Allergy Severe Angioedema Verified 10/18/24 21:09 guaifenesin (From Mucinex) Allergy Intermediate Bleeding Verified 10/18/24 21:09 aspirin (ASA) Allergy Other Verified 10/18/24 21:09 mushroom (mushrooms) Allergy Hives Verified 10/18/24 21:09 Penicillins Allergy PT UNSURE Verified 10/18/24 21:09 OF REACTION shellfish derived Allergy Hives Verified 10/18/24 21:09 Family History Father Cancer Mother Heart disease Hypertension Myocardial infarction Surgical History History of cardiac cath (~07/2021) History of cardioversion (~09/2021) History of nephrectomy, right Social History household members: spouse and family Smoking Status: Current every day smoker tobacco type: cigarettes Electronic Cigarette Use: with nicotine alcohol intake: current alcohol intake frequency: holidays/special occasions only substance use type: does not use ROS ROS ED ROS Narrative see HPI EXAM Physical Exam Narrative Exam Narrative: Vital signs: Reviewed General: Alert and oriented. No acute distress. Chronically ill-appearing. HEENT: Head is normocephalic and atraumatic, sinuses nontender, pupils equal round and reactive. Nares are patent. Oropharynx and throat exams normal. Drymucous membranes Neck: Supple without lymphadenopathy nontender Cardiovascular: Regular rate and rhythm, no murmurs. No rubs or gallops. Normal S1 and S2 Respiratory: Clear to auscultation bilaterally. No wheezes, rales, rhonchi. Onbaseline 3 L nasal cannula Abdominal: Soft and generalized tenderness to palpation. Normal bowel sounds. No guarding or rebound. Nonsurgical abdomen Extremities: No tenderness. No bruising. Normal range of motion. Normal sensation. Skin: No rash or redness. Neurological: Cranial nerves II through XII are grossly intact. Normal strengthand sensation. Normal cerebellar function The rest of the physical exam is unremarkable Const Vital Signs: 10/18/24 21:03 10/18/24 21:11 10/18/24 21:13 Temperature 98.3 F 98.3 F Temperature Source Temporal Oral Pulse Rate 98 79 Respiratory Rate 18 15 Respiratory Effort Normal Non-Labored Respiratory Pattern Normal Blood Pressure 77/49 L 126/108 H Blood Pressure Mean 58 114 Pulse Ox 98 100 Oxygen Delivery Method Room Air Nasal Cannula Oxygen Flow Rate (L/min) 3 08/13/25 21:13 10/18/24 22:03 10/18/24 22:08 Temperature 98.3 F Temperature Source Oral Pulse Rate 73 Respiratory Rate 17 Respiratory Effort Respiratory Pattern Blood Pressure 126/108 H 89/69 L 89/69 L Blood Pressure Mean 114 75 75 Pulse Ox 97 Oxygen Delivery Method Nasal Cannula Oxygen Flow Rate (L/min) 3 10/18/24 23:00 Temperature 98.3 F Temperature Source Oral Pulse Rate 87 Respiratory Rate 19 H Respiratory Effort Respiratory Pattern Blood Pressure 86/69 L Blood Pressure Mean 74 Pulse Ox 97 Oxygen Delivery Method Nasal Cannula Oxygen Flow Rate (L/min) 3 MDM MDM MDM Narrative Medical decision making narrative: Patient is a 59-year-old male presenting to the emergency department for feelinggenerally unwell with complaints of diarrhea. Patient was seen and examined. He is initially hypotensive at 77/49, heart rate in the 90s. He is afebrile. He is saturating 90% on his baseline 3 L nasal cannula. Fluid bolus ordered forpatient's hypotension however will be slow with the fluids given his history of heart failure. Differential includes but is not limited to: Gastroenteritis, diverticulitis, UTI, sepsis, hypovolemia, pneumonia CBC with no leukocytosis and normal hemoglobin. Mild anion gap of 16. Slightlyworsening kidney function than baseline. Looks like it has continued to worsen since June. Lipase mildly elevated, but does not meet criteria for pancreatitis. Chest x-ray shows a right lateral chest wall mass. CT abdomen pelvis shows no acute findings. Lactate is. Stool studies were sent. C diff negative. on chart review it looks like that patient was seen outpatient on 10/02by cardiology and was hypotensive at 80/50 but was asymptomatic. labs were ordered at that time. Patient is not on midodrine at home. He is usually normotensive around 130s/80s on chart review. Patient will require admission forlikely hypovolemia hypotension. Will require slow fluids given his CHF hx. Patient and agreeable. Clinical impression: 1. hypovolemia 2. hypotension 3. VIMAL History & Record Review Discussion w/independent historian: Patient and Family Additional record(s) reviewed:: Prior outpatient record and Prior ED visit Lab Data Attestation: I reviewed the patient's lab results. Labs: Laboratory Results - last 24 hr 10/18/24 21:15 WBC 5.1 RBC 4.48 L Hgb 14.6 Hct 42.5 MCV 94.9 H MCH 32.6 H MCHC 34.4 RDW Std Deviation 62.2 H RDW Coeff of Lizzie 18.1 H Plt Count 201 MPV 10.4 Immature Gran % (Auto) 0.400 Neut % (Auto) 66.2 Lymph % (Auto) 22.9 Burt % (Auto) 7.8 Eos % (Auto) 2.5 Baso % (Auto) 0.2 Absolute Neuts (auto) 3.4 Absolute Lymphs (auto) 1.17 Nucleated RBC % 0 Sodium 138 Potassium 4.6 Chloride 103 Carbon Dioxide 18.1 L Anion Gap 16 H BUN 31 H Creatinine 2.77 H Est GFR (MDRD) Non-Af 25 L BUN/Creatinine Ratio 11.3 Glucose 116 H Calcium 9.5 Total Bilirubin 0.54 AST 46 H ALT 47 Alkaline Phosphatase 58 Total Protein 7.0 Albumin 4.0 Globulin 3.0 Albumin/Globulin Ratio 1.3 Lipase 86 H Radiography Diagnostic Testing: Clinical Impression(s) from Imaging Studies Abdomen/Pelvis CT 10/18/24 22:48 IMPRESSION: No acute abdominopelvic findings. Status post right-sided nephrectomy with multifocal bone metastatic disease. Reading Location: [place] [address] Chest X-Ray 10/18/24 22:50 IMPRESSION: Right lateral chest wall mass. Reading Location: [id number] Discharge Plan Triage Chief Complaint: General Illness ED Provider: Veronica Jackson Dx/Rx/DC Orders Prescriptions: No Action spironolactone 25 mg tablet 25 mg PO DAILY Qty: 90 3RF losartan 50 mg tablet 50 mg PO DAILY Qty: 90 3RF Ozempic 0.25 mg or 0.5 mg (2 mg/3 mL) pen injector 0.25 mg subcut QWEEK Eliquis 5 mg tablet 5 mg PO BID Qty: 60 11RF dapagliflozin propanediol [Farxiga] 5 mg tablet 5 mg PO QDAY calcitriol 0.25 mcg capsule 0.25 mcg PO QDAY sertraline 50 mg tablet 50 mg PO QDAY tizanidine 4 mg capsule 4 mg PO BID PRN bumetanide 2 mg tablet 2 mg PO ONCE (DME) Handicap Placard See Rx Instructions .Route .MEDSUPPLY Qty: 1 0RF Rx Instructions: Exp: 10/13/2028 albuterol sulfate 2.5 mg /3 mL (0.083 %) solution for nebulization 2.5 mg inhalation PRN PRN (Reason: Shortness Of Breath) Qty: 75 0RF pantoprazole 40 mg tablet,delayed release (DR/EC) [...] 1 inh inhalation DAILY Qty: 28 0RF carvedilol 12.5 mg tablet 12.5 mg PO BID Qty: 180 3RF cabozantinib 20 mg tablet 20 mg PO QDAY Primary Care Provider: Daksha Turner Referrals: Daksha Turner MD [Primary Care Provider] - Print Language: Lithuanian What to do if you have Problems For any increased pain, shortness of breath, bleeding, nausea or vomiting, chestpain, or any unexpected problems, contact your Primary Care Provider. Call [facility] ([phone]) or report to the closest Emergency Room. Call 911 if necessary. 10/19/24 1035 <Electronically signed by Veronica Jackson MD> Cosigner Signature (if applicable): CC: Dr. Daksha Turner MD ~ Signed [facility] Work Phone: [phone] Discharge summary [facility] Medical Records Department [address] [place] [address] Emergency Department Summary 10/18/24 MR#: [id number] Acct: [id number] Name: YEFRI YANEZ Rep #:[id number] : 1965 59 From: Veronica Jackson MD PCP: Dr. Daksha Turner MD Status :ADM IN Location: [place] [address] HPI History of Present Illness Chief Complaint: General Illness Narrative Narrative: Patient is a 59-year-old male presenting to the emergency department for abdominal pain, nausea andfeeling generally unwell for the past week. Patient has a past medical history of metastatic renal cell carcinoma to bone status post nephrectomy, A-fib, hypertension, hyperlipidemia and CHF. Patientstates that he has had diarrhea for months. States he feels dehydrated from all the diarrhea. Reports that last week he developed generalized abdominal pain and bloating as well. Endorses nausea with no vomiting. Denies fever or chills. Denies chest pain. States he was feeling short of breath right when he got herebut he was not wearing oxygen this now no longer short of breath on his [id number] nasal cannula. Denies any dysuria or hematuria. Denies any blood in his stool. Denies any recent antibiotics. [facility] Medical History Atrial fibrillation Abnormal chest x-ray Warfarin-induced coagulopathy Chronic a-fib CKD (chronic kidney disease) CKD (chronic kidney disease), stage III Systolic CHF Tobacco use NIMCO on CPAP Metastatic renal cell carcinoma to bone Renal cell cancer Hyperlipidemia GERD (gastroesophageal reflux disease) COPD (chronic obstructive pulmonary disease) Atrial fibrillation Hypertension Home Medications ?Medication ?Instructions ?Recorded ?Last Taken ?Type albuterol sulfate 2.5 mg/3 mL 2.5 mg (3 mL) inhalation PRN PRN 06/29/22 Unknown Rx (0.083 %) solution for nebulization Shortness Of Breat h #75 mL ferrous sulfate 325 mg (65 mg 325 mg PO BID #30 tabs 0 06/29/22 Unknown Rx iron) tablet fluticasone fur. 100 mcg-umeclid 1 inh inhalation MONICA Y #28 ea 06/29/22 Unknown Rx 62.5 mcg-vilant 25 mcg inhalat.powder (Trelegy Ellipta) pantoprazole 40 mg tablet,delayed 40 mg PO DAILY gerd #30 tabs 06/29/22 Unknown Rx release potassium chloride 20 mEq 20 meq PO DAILY #30 tabs Unknown Rx tablet,extended release rosuvastatin 40 mg tablet 40 mg PO DAILY cholesterol # 30 tabs 06/29/22 Unknown Rx losartan 50 mg tablet 50 mg PO DAILY #90 tabs 09/06 07/28 Unknown Rx spironolactone 25 mg tablet 25 mg PO DAILY #90 tabs Unknown Rx carvedilol 12.5 mg tablet 12.5 mg PO BID #180 TABLETS 06/04/24 Unknown Rx semaglutide 0.25 mg or 0.5 mg (2 0.25 mg subcut QWEEK 06/20/24 Unknown History mg/3 mL) subcutaneous pen injector (Ozempic) cabozantinib 20 mg tablet 20 mg PO QDAY 08/09/24 Unkno wn History apixaban 5 mg tablet (Eliquis) 5 mg PO BID #60 tabs Unknown Rx Handicap Placard #1 ea 10/02/24 Unknown Rx bumetanide 2 mg tablet 2 mg PO ONCE 10/02/24 Unknow n History calcitriol 0.25 mcg capsule 0.25 mcg PO QDAY 10/02/24 Unknown History dapagliflozin propanediol 5 mg 5 mg PO QDAY 10/02/24 U nknown History tablet (Farxiga) sertraline 50 mg tablet 50 mg PO QDAY 10/02/24 Unkno wn History tizanidine 4 mg capsule 4 mg PO BID PRN 10/02/24 Unk nown History Allergy/AdvReac Type Severity Reaction Status Date / Time lisinopril Allergy Severe Angioedema Verified 10/18/24 21:09 guaifenesin (From Mucinex) Allergy Intermediate Bleeding Verified 10/18/24 21:09 aspirin (ASA) Allergy Other Verified 10/18/24 21:09 mushroom (mushrooms) Allergy Hives Verified 10/18/24 21:09 Penicillins Allergy PT UNSURE Verified 10/18/24 21:09 OF REACTION shellfish derived Allergy Hives Verified 10/18/24 21:09 Family History Father Cancer Mother Heart disease Hypertension Myocardial infarction Surgical History History of cardiac cath (~07/2021) History of cardioversion (~09/2021) History of nephrectomy, right Social History household members: spouse and family Smoking Status: Current every day smoker tobacco type: cigarettes Electronic Cigarette Use: with nicotine alcohol intake: current alcohol intake frequency: holidays/special occasions only substance use type: does not use ROS ROS ED ROS Narrative see HPI EXAM Physical Exam Narrative Exam Narrative: Vital signs: Reviewed General: Alert and oriented. No acute distress. Chronically ill-appearing. HEENT: Head is normocephalic and atraumatic, sinuses nontender, pupils equal round and reactive. Nares are patent. Oropharynx and throat exams normal. Drymucous membranes Neck: Supple without lymphadenopathy nontender Cardiovascular: Regular rate and rhythm, no murmurs. No rubs or gallops. Normal S1 and S2 Respiratory: Clear to auscultation bilaterally. No wheezes, rales, rhonchi. Onbaseline 3 L nasal cannula Abdominal: Soft and generalized tenderness to palpation. Normal bowel sounds. No guarding or rebound. Nonsurgical abdomen Extremities: No tenderness. No bruising. Normal range of motion. Normal sensation. Skin: No rash or redness. Neurological: Cranial nerves II through XII are grossly intact. Normal strengthand sensation. Normal cerebellar function The rest of the physical exam is unremarkable Const Vital Signs: 10/18/24 21:03 10/18/24 21:11 10/18/24 21:13 Temperature 98.3 F 98.3 F Temperature Source Temporal Oral Pulse Rate 98 79 Respiratory Rate 18 15 Respiratory Effort Normal Non-Labored Respiratory Pattern Normal Blood Pressure 77/49 L 126/108 H Blood Pressure Mean 58 114 Pulse Ox 98 100 Oxygen Delivery Method Room Air Nasal Cannula Oxygen Flow Rate (L/min) 3 10/18/24 21:13 10/18/24 22:03 10/18/24 22:08 Temperature 98.3 F Temperature Source Oral Pulse Rate 73 Respiratory Rate 17 Respiratory Effort Respiratory Pattern Blood Pressure 126/108 H 89/69 L 89/69 L Blood Pressure Mean 114 75 75 Pulse Ox 97 Oxygen Delivery Method Nasal Cannula Oxygen Flow Rate (L/min) 3 10/18/24 23:00 Temperature 98.3 F Temperature Source Oral Pulse Rate 87 Respiratory Rate 19 H Respiratory Effort Respiratory Pattern Blood Pressure 86/69 L Blood Pressure Mean 74 Pulse Ox 97 Oxygen Delivery Method Nasal Cannula Oxygen Flow Rate (L/min) 3 MDM MDM MDM Narrative Medical decision making narrative: Patient is a 59-year-old male presenting to the emergency department for feelinggenerally unwell with complaints of diarrhea. Patient was seen and examined. He is initially hypotensive at 77/49, heart rate in the 90s. He is afebrile. He is saturating 90% on his baseline 3 L nasal cannula. Fluid bolus ordered forpatient's hypotension however will be slow with the fluids given his history of heart failure. Differential includes but is not limited to: Gastroenteritis, diverticulitis, UTI, sepsis, hypovolemia, pneumonia CBC with no leukocytosis and normal hemoglobin. Mild anion gap of 16. Slightlyworsening kidney function than baseline. Looks like it has continued to worsen since June. Lipase mildly elevated, but does not meet criteria for pancreatitis. Chest x-ray shows a right lateral chest wall mass. CT abdomen pelvis shows no acute findings. Lactate is. Stool studies were sent. C diff negative. on chart review it looks like that patient was seen outpatient on 10/02by cardiology and was hypotensive at 80/50but was asymptomatic. labs were ordered at that time. Patient is not on midodrine at home. He is usually normotensive around 130s/80s on chart review. Patient will require admission forlikely hypovolemia hypotension. Will require slow fluids given his CHF hx. Patient and agreeable. Clinical impression: 1. hypovolemia 2. hypotension 3. VIMAL History & Record Review Discussion w/independent historian: Patient and Family Additional record(s) reviewed:: Prior outpatient record and Prior ED visit Lab Data Attestation: I reviewed the patient's lab results. Labs: Laboratory Results - last 24 hr 10/18/24 21:15 WBC 5.1 RBC 4.48 L Hgb 14.6 Hct 42.5 MCV 94.9 H MCH 32.6 H MCHC 34.4 RDW Std Deviation 62.2 H RDW Coeff of Lizzie 18.1 H Plt Count 201 MPV 10.4 Immature Gran % (Auto) 0.400 Neut % (Auto) 66.2 Lymph % (Auto) 22.9 Burt % (Auto) 7.8 Eos % (Auto) 2.5 Baso % (Auto) 0.2 Absolute Neuts (auto) 3.4 Absolute Lymphs (auto) 1.17 Nucleated RBC % 0 Sodium 138 Potassium 4.6 Chloride 103 Carbon Dioxide 18.1 L Anion Gap 16 H BUN 31 H Creatinine 2.77 H Est GFR (MDRD) Non-Af 25 L BUN/Creatinine Ratio 11.3 Glucose 116 H Calcium 9.5 Total Bilirubin 0.54 AST 46 H ALT 47 Alkaline Phosphatase 58 Total Protein 7.0 Albumin 4.0 Globulin 3.0 Albumin/Globulin Ratio 1.3 Lipase 86 H Radiography Diagnostic Testing: Clinical Impression(s) from Imaging Studies Abdomen/Pelvis CT 10/18/24 22:48 IMPRESSION: No acute abdominopelvic findings. Status post right-sided nephrectomy with multifocal bone metastatic disease. [facility] Chest X-Ray 10/18/24 22:50 IMPRESSION: Right lateral chest wall mass. Reading Location: [id number] Discharge Plan Triage Chief Complaint: General Illness ED Provider: Veronica Jackson Dx/Rx/DC Orders Prescriptions: No Action spironolactone 25 mg tablet 25 mg PO DAILY Qty: 90 3RF losartan 50 mg tablet 50 mg PO DAILY Qty: 90 3RF Ozempic 0.25 mg or 0.5 mg (2 mg/3 mL) pen injector 0.25 mg subcut QWEEK Eliquis 5 mg tablet 5 mg PO BID Qty: 60 11RF dapagliflozin propanediol [Farxiga] 5 mg tablet 5 mg PO QDAY calcitriol 0.25 mcg capsule 0.25 mcg PO QDAY sertraline 50 mg tablet 50 mg PO QDAY tizanidine 4 mg capsule 4 mg PO BID PRN bumetanide 2 mg tablet 2 mg PO ONCE (DME) Handicap Placard See Rx Instructions .Route .MEDSUPPLY Qty: 1 0RF Rx Instructions: Exp: 10/13/2028 albuterol sulfate 2.5 mg /3 mL (0.083 %) solution for nebulization 2.5 mg inhalation PRN PRN (Reason: Shortness Of Breath) Qty: 75 0RF pantoprazole 40 mg tablet,delayed release (DR/EC) [...] 1 inh inhalation DAILY Qty: 28 0RF carvedilol 12.5 mg tablet 12.5 mg PO BID Qty: 180 3RF cabozantinib 20 mg tablet 20 mg PO QDAY Primary Care Provider: Daksha Turner Referrals: Daksha Turner MD [Primary Care Provider] - Print Language: Lithuanian What to do if you have Problems For any increased pain, shortness of breath, bleeding, nausea or vomiting, chestpain, or any unexpected problems, contact your Primary Care Provider. Call [facility] ([phone]) or report tothe closest Emergency Room. Call 911 if necessary. 10/19/24 1035 Cosigner Signature (if applicable): CC: Dr. Daksha Turner MD ~ Signed [facility]08-14-2025 History and physical note Author Rahul Verduzco [facility] Note Date/Time October 19, 2024 6: 21am [facility] Medical Records Department [address] [place] [address] H&P Exam - Hospitalist 10/19/24 0418 MR#: [id number] Acct: [id number] Name: YEFRI YANEZ Rep #:[id number] : 1965 59 From: Rahul See DO PCP: Dr. Daksha Turner MD Status :ADM IN Location: [place] [id number] HPI - General General Date of Admission: 10/19/24 Date of Service: 10/19/24 Chief Complaint: Abdominal Pain and Diarrhea. HPI Narrative YEFRI YANEZ, is a 59 M with a past medical history of essential hypertension; on carvedilol twice daily, losartan, spironolactone and bumetanide, hyperlipidemia; on rosuvastatin, chronic tobacco abuse; with subsequent COPD, chronic hypoxic respiratory failure; on 3L NC continuous, obesity (class II); with BMI of 35.3 this admission, NIMCO; on CPAP, DM-2; of unknown control on dapagliflozin and semaglutide, chronic atrial fibrillation; s/p DCCV (2021) on apixaban twice daily, history of CHF; with preserved LVEF of ~50% with mild concentric LVH, borderline global hypokinesis of the left ventricle and [id number] (1-2+) eccentric mitral valve insufficiency, mild(1+) tricuspid valve insufficiency and moderate (2+) eccentric aortic valve insufficiency on recent echocardiogram done here on September 25, 2024, history of metastatic renal cancer to the bone; s/p Right nephrectomy on cabozantinib followed by Dr. Botello of oncology, CKD; stage IIIb-IV, HIRA; on ferrous sulfate twice daily, depression; on sertraline, history of muscle spasms; on tizanidine twice daily as needed, GERD; on pantoprazole, chronic diarrhea (for months) and OA who presents to [facility] ER complaining of abdominal pain and diarrhea. Mr. Yanez reports his symptoms began approximately 1 week prior to admission with an acute worsening of his chronic diarrhea causing him to feel dehydrated. He also admits to generalized cramping abdominal pain in addition to bloating with nausea with the patient feeling like he is becoming dehydrated. He states his last colonoscopy was more than 10 years ago and he is interested to find solutions for his diarrhea because he is going to the bathroom frequently at night. He denies associated fever, chills, vomiting, constipation, blood in stools, recent antibiotics, known sick contacts, significant travel, dysuria, hematuria, headache or rash. In the ER he underwent CT scan of the abdomen and pelvis without contrast that revealed previous Right-sided nephrectomy with multifocal bone Metastatic disease and CXR that revealed Right lateral chest wall mass complicated by acute worsening of chronic Diarrhea and transient Hypotension of 87/45 mmHg noted shortly after admission and he was then admittedto the PCU for ongoing care for stated is expected to extend beyond 2 midnights. [facility] Medical History Atrial fibrillation Abnormal chest x-ray Warfarin-induced coagulopathy Chronic a-fib CKD (chronic kidney disease) CKD (chronic kidney disease), stage III Systolic CHF Tobacco use NIMCO on CPAP Metastatic renal cell carcinoma to bone Renal cell cancer Hyperlipidemia GERD (gastroesophageal reflux disease) COPD (chronic obstructive pulmonary disease) Atrial fibrillation Hypertension Home Medications ?Medication ?Instructions ?Recorded ?Last Taken ?Type albuterol sulfate 2.5 mg/3 mL 2.5 mg (3 mL) inhalation PRN PRN 06/29/22 Unknown Rx (0.083 %) solution for nebulization Shortness Of Breat h #75 mL ferrous sulfate 325 mg (65 mg 325 mg PO BID #30 tabs 0 06/29/22 Unknown Rx iron) tablet fluticasone fur. 100 mcg-umeclid 1 inh inhalation MONICA Y #28 ea 06/29/22 Unknown Rx 62.5 mcg-vilant 25 mcg inhalat.powder (Trelegy Ellipta) pantoprazole 40 mg tablet,delayed 40 mg PO DAILY gerd #30 tabs 06/29/22 Unknown Rx release potassium chloride 20 mEq 20 meq PO DAILY #30 tabs Unknown Rx tablet,extended release rosuvastatin 40 mg tablet 40 mg PO DAILY cholesterol # 30 tabs 06/29/22 Unknown Rx losartan 50 mg tablet 50 mg PO DAILY #90 tabs 09/06 07/28 Unknown Rx spironolactone 25 mg tablet 25 mg PO DAILY #90 tabs Unknown Rx carvedilol 12.5 mg tablet 12.5 mg PO BID #180 TABLETS 06/04/24 Unknown Rx semaglutide 0.25 mg or 0.5 mg (2 0.25 mg subcut QWEEK 06/20/24 Unknown History mg/3 mL) subcutaneous pen injector (Ozempic) cabozantinib 20 mg tablet 20 mg PO QDAY 08/09/24 Unkno wn History apixaban 5 mg tablet (Eliquis) 5 mg PO BID #60 tabs Unknown Rx Handicap Placard #1 ea 10/02/24 Unknown Rx bumetanide 2 mg tablet 2 mg PO ONCE 10/02/24 Unknow n History calcitriol 0.25 mcg capsule 0.25 mcg PO QDAY 10/02/24 Unknown History dapagliflozin propanediol 5 mg 5 mg PO QDAY 10/02/24 U nknown History tablet (Farxiga) sertraline 50 mg tablet 50 mg PO QDAY 10/02/24 Unkno wn History tizanidine 4 mg capsule 4 mg PO BID PRN 10/02/24 Unk nown History Allergy/AdvReac Type Severity Reaction Status Date / Time lisinopril Allergy Severe Angioedema Verified 10/18/24 21:09 guaifenesin (From Mucinex) Allergy Intermediate Bleeding Verified 10/18/24 21:09 aspirin (ASA) Allergy Other Verified 10/18/24 21:09 mushroom (mushrooms) Allergy Hives Verified 10/18/24 21:09 Penicillins Allergy PT UNSURE Verified 10/18/24 21:09 OF REACTION shellfish derived Allergy Hives Verified 10/18/24 21:09 Family History Father Cancer Mother Heart disease Hypertension Myocardial infarction Surgical History History of cardiac cath (~07/2021) History of cardioversion (~09/2021) History of nephrectomy, right Social History household members: spouse and family Smoking Status: Current every day smoker tobacco type: cigarettes Electronic Cigarette Use: with nicotine alcohol intake: current alcohol intake frequency: holidays/special occasions only substance use type: does not use ROS ROS Narrative Review of Systems: Constitutional: Patient denies fever or chills, Eyes: Patient denies change in vision or discharge from eyes. ENT: Patient denies runny nose, sore throat or ear pain. Resp: Patient denies shortness of breath while he is on his 3L NC. CV: Patient denies chest pain, palpitations, heart racing or lower extremity edema. GI: Patient admits to cramping abdominal pain with bloating and acute worsening of chronic nonbloody diarrhea as per HPI. : Patient denies dysuria or hematuria. MSK: Patient denies arthralgias or myalgias. Skin: Patient denies rash, abscess, wounds or jaundice. Psych: Patient denies symptoms of uncontrolled depression or anxiety. Neuro: Patient denies headache, paresthesias or focal neurologic deficits. Allergy: Patient denies lip swelling, tongue swelling or urticaria. Hematology: Patient admits to easy bleeding and easy bruisability on apixaban. Endocrinology: Patient denies polyuria, polydipsia, polyphagia or heat/cold intolerance. 14 point ROS otherwise negative except for positives noted above in HPI. Vital Signs Vital Signs Vital Signs: 10/18/24 21:03 10/18/24 21:11 10/18/24 21:13 Temperature 98.3 F 98.3 F Temperature Source Temporal Oral Pulse Rate 98 79 Respiratory Rate 18 15 Respiratory Effort Normal Non-Labored Respiratory Pattern Normal Blood Pressure 77/49 L 126/108 H Blood Pressure Mean 58 114 Pulse Ox 98 100 Oxygen Delivery Method Room Air Nasal Cannula Oxygen Flow Rate (L/min) 3 10/18/24 21:13 10/18/24 22:03 10/18/24 22:08 Temperature 98.3 F Temperature Source Oral Pulse Rate 73 Respiratory Rate 17 Respiratory Effort Respiratory Pattern Blood Pressure 126/108 H 89/69 L 89/69 L Blood Pressure Mean 114 75 75 Pulse Ox 97 Oxygen Delivery Method Nasal Cannula Oxygen Flow Rate (L/min) 3 10/18/24 22:15 10/18/24 22:45 10/18/24 23:00 Temperature 98.3 F Temperature Source Oral Pulse Rate 80 87 Respiratory Rate 23 H 19 H Respiratory Effort Respiratory Pattern Blood Pressure 83/62 L 86/69 L Blood Pressure Mean 68 74 Pulse Ox 100 97 Oxygen Delivery Method Nasal Cannula Oxygen Flow Rate (L/min) 3 10/18/24 23:03 10/18/24 23:15 10/18/24 23:30 Temperature Temperature Source Pulse Rate 78 82 76 Respiratory Rate 26 H 17 17 Respiratory Effort Respiratory Pattern Blood Pressure 86/69 L 89/76 L 92/65 Blood Pressure Mean 75 82 74 Pulse Ox 93 Oxygen Delivery Method Oxygen Flow Rate (L/min) 10/18/24 23:45 10/19/24 00:00 10/19/24 00:00 Temperature Temperature Source Pulse Rate 74 83 Respiratory Rate 15 17 Respiratory Effort Respiratory Pattern Blood Pressure 92/77 102/74 102/74 Blood Pressure Mean 83 83 82 Pulse Ox 97 100 Oxygen Delivery Method Nasal Cannula Oxygen Flow Rate (L/min) 3 10/19/24 00:14 10/19/24 00:15 10/19/24 00:30 Temperature 98.3 F Temperature Source Oral Pulse Rate 79 80 Respiratory Rate 20 H 20 H Respiratory Effort Respiratory Pattern Blood Pressure 102/74 87/78 L 102/78 Blood Pressure Mean 83 83 86 Pulse Ox 100 Oxygen Delivery Method Nasal Cannula Oxygen Flow Rate (L/min) 3 10/19/24 00:31 10/19/24 00:45 10/19/24 00:59 Temperature 98.0 F Temperature Source Temporal Pulse Rate 81 Respiratory Rate 18 Respiratory Effort Respiratory Pattern Blood Pressure 108/82 H 97/75 Blood Pressure Mean 93 82 Pulse Ox 100 100 100 Oxygen Delivery Method Nasal Cannula Oxygen Flow Rate (L/min) 3 10/19/24 01:00 10/19/24 01:14 10/19/24 01:15 Temperature 98.2 F Temperature Source Temporal Pulse Rate 83 88 72 Respiratory Rate 21 H 20 H 18 Respiratory Effort Respiratory Pattern Blood Pressure 97/75 102/68 103/78 Blood Pressure Mean 83 79 88 Pulse Ox 98 97 100 Oxygen Delivery Method Nasal Cannula Oxygen Flow Rate (L/min) 10/19/24 01:30 10/19/24 01:45 10/19/24 02:02 Temperature Temperature Source Pulse Rate 75 77 85 Respiratory Rate 19 H 17 19 H Respiratory Effort Respiratory Pattern Blood Pressure 90/70 103/83 H 87/45 L Blood Pressure Mean 78 88 58 Pulse Ox 100 100 Oxygen Delivery Method Oxygen Flow Rate (L/min) 10/19/24 02:09 10/19/24 02:11 10/19/24 02:15 Temperature Temperature Source Pulse Rate 83 86 68 Respiratory Rate 18 18 15 Respiratory Effort Respiratory Pattern Blood Pressure 102/68 102/68 112/64 Blood Pressure Mean 80 79 75 Pulse Ox 100 98 100 Oxygen Delivery Method Nasal Cannula Oxygen Flow Rate (L/min) 10/19/24 02:30 10/19/24 02:45 10/19/24 03:00 Temperature Temperature Source Pulse Rate 81 77 81 Respiratory Rate 18 19 H 22 H Respiratory Effort Respiratory Pattern Blood Pressure 96/74 106/73 104/62 Blood Pressure Mean 82 83 74 Pulse Ox 100 100 100 Oxygen Delivery Method Oxygen Flow Rate (L/min) 10/19/24 03:15 10/19/24 03:19 10/19/24 03:30 Temperature 98.4 F Temperature Source Pulse Rate 80 88 78 Respiratory Rate 18 18 19 H Respiratory Effort Respiratory Pattern Blood Pressure 104/52 L Blood Pressure Mean 69 Pulse Ox 100 96 100 Oxygen Delivery Method Oxygen Flow Rate (L/min) 10/19/24 03:45 10/19/24 04:00 Temperature Temperature Source Pulse Rate 78 80 Respiratory Rate 19 H 18 Respiratory Effort Respiratory Pattern Blood Pressure 92/75 Blood Pressure Mean 83 Pulse Ox 99 100 Oxygen Delivery Method Oxygen Flow Rate (L/min) Weight Weight: 252 lb 13.923 oz Body Mass Index (BMI) 35.2 Physical Exam Const alert, oriented x3 and no apparent distress Constitutional Narrative: Obese with chronically ill but nontoxic appearance. General Appearance: cooperative HEENT normocephalic, head/scalp atraumatic and hearing grossly normal bilaterally HEENT Narrative: Mucous membranes dry. Eyes PERRL and EOMs intact bilaterally Neck no lymphadenopathy and supple Resp normal respiratory effort, no retractions, no use of accessory muscles and clearto auscultation bilaterally Cardio regular rate and regular rhythm GI soft to palpation and non-distended GI Narrative: Generalized tenderness to palpation with no guarding or rebound. Extremity normal to inspection, full ROM and no clubbing, cyanosis or edema Skin Skin Narrative: Patient has no evidence of rash, abscess, wounds or jaundice. Neuro oriented x3, CN's II-XII intact bilaterally, moves all extremities and no focal motor deficits Sensorium / Orientation: awake, alert, oriented to person, oriented to place andoriented to time Speech: speech normal Psych affect normal Results Medical Records Data Attestation: I reviewed the patient's medical records Lab / Micro Data Attestation: I reviewed the patient's lab results. 10/18/24 21:15 10/18/24 21:15 Labs: Laboratory Results - last 24 hr 10/18/24 00:11: Urine Color Yellow, Urine Clarity Clear, Urine pH 5.0, Ur Specific [place] 1.020, Urine Protein 30 H, Urine Glucose (UA) 100 H, Urine Ketones Negative, Urine Occult Blood 10 H, Urine Nitrite Negative, Urine Bilirubin 1 H, Urine Urobilinogen Normal, Ur Leukocyte Esterase Negative, Urine RBC 0-5 SEEN, Urine WBC 0-5 SEEN, Ur Squamous Epith Cells 0-5 SEEN, Urine Bacteria 1+, Hyaline Casts 10- 25 SEEN, Urine Mucus 0 SEEN 10/18/24 21:15: WBC 5.1, RBC 4.48 L, Hgb 14.6, Hct 42.5, MCV 94.9 H, MCH 32.6 H,MCHC 34.4, RDW Std Deviation 62.2 H, RDW Coeff of Lizzie 18.1 H, Plt Count 201, MPV10.4, Immature Gran % (Auto) 0.400, Neut % (Auto) 66.2, Lymph % (Auto) 22.9, Burt % (Auto) 7.8, Eos % (Auto) 2.5, Baso % (Auto) 0.2, Absolute Neuts (auto) 3.4, Absolute Lymphs (auto) 1.17, Nucleated RBC % 0, Sodium 138, Potassium 4.6, Chloride 103, Carbon Dioxide 18.1 L, Anion Gap 16 H, BUN 31 H, Creatinine 2.77 H, Est GFR (MDRD) Non- Af 25 L, BUN/Creatinine Ratio 11.3, Glucose 116 H, Calcium 9.5, Total Bilirubin 0.54, AST 46 H, ALT 47, Alkaline Phosphatase 58, Total Protein 7.0, Albumin 4.0, Globulin 3.0, Albumin/Globulin Ratio 1.3, Lipase 86 H 10/18/24 23:25: Lactic Acid 1.0 Micro: Microbiology 10/18/24 22:00 Stool Enteric Bacteriology - Final 10/18/24 23:25 Mucosa - Nose SARS-CoV-2, Influenza & RSV (PCR) - Final 10/18/24 22:00 Stool Clostridioides difficile (PCR) - Final Imaging Radiology Impression Abdomen/Pelvis CT 10/18/24 22:48 IMPRESSION: No acute abdominopelvic findings. Status post right-sided nephrectomy with multifocal bone metastatic disease. [facility] 10/18/24 22:50 IMPRESSION: Right lateral chest wall mass. Reading Location: [facility] Assessment & Plan Assessment/Plan (1) Diarrhea: QUALIFIERS: Diarrhea type: presumed infectious Qualified Code(s):R19.7 - Diarrhea, unspecified (2) Hypotension due to hypovolemia: (3) Metastatic renal cell carcinoma to bone: (4) Renal cell cancer: QUALIFIERS: Laterality: right Qualified Code(s): C64.1 - Malignant neoplasm of right kidney, except renal pelvis (5) CKD (chronic kidney disease) stage 3, GFR 30-59 ml/min: QUALIFIERS: Chronic kidney disease stage 3 subtype: stage 3b (GFR 30-44) Qualified Code(s): N18.32 - Chronic kidney disease, stage 3b (6) Obesity (BMI 30.0-34.9): (7) Chronic atrial fibrillation: (8) Chronic anticoagulation: PLAN: Plan 1. Acute worsening of chronic nonbloody Diarrhea - Admit to PCU and placed on enteric precautions. Check stool studies. Give empiric IV metronidazole until stool studies confirm negative for infectious etiology. Give ondansetron IV as needed for nausea or vomiting. Give acetaminophen as needed for [id number] (level 1-5/10) pain or fever. Give morphine IV as needed for severe (level 6-10/10) pain. Patient was not suspected to have sepsis present on admission with normal white blood cell count 5.1 K, normal lactate of 1 mmol/L and persistently afebrile since admission. Finally, we will consult gastroenterology to see this patient on rounds in the a.m. for further recommendations with help appreciated in advance. 2. Hypotension of 87/45 mmHg noted shortly after admission likely due to #1 - Volume resuscitate and follow vital signs per protocol for hopeful improvement. 3. CT scan of the abdomen and pelvis without contrast that revealed previous Right-sided nephrectomy with multifocal bone Metastatic disease and CXR that revealed Right lateral chest wall mass in the setting of a known history of metastatic renal cancer complicating #1 & #2 - Noted. 4. CKD; stage IIIb-IV adding to the medical complexity of #1 - #3 - Check renalindices daily to ensure continued stability with suspected volume contraction due to #1. 5. Obesity (class II); with BMI of 35.3 this admission plus NIMCO; on CPAP addingto the burden of disease outlined from #1 - #4 - Weight loss will be recommended. Check TSH. Resume nocturnal CPAP. This complicates his case ad may hamper recovery. 6. Chronic atrial fibrillation; s/p DCCV (2021) on apixaban twice daily adding to the medical complexity of #1 - #5 - Maintain apixaban as previous. 7. Chronic tobacco abuse; with subsequent COPD and chronic hypoxic respiratory failure; on 3L NC continuous - Stable without evidence of acute flare at this time. Continue scheduled and as needed nebulizers/inhalers. Tobacco cessation will be strongly encouraged with nicotine patch offered to control cravings. 8. History of CHF; with preserved LVEF of ~50% with mild concentric LVH, borderline global hypokinesis of the Left ventricle and [id number] (1-2+) eccentric mitral valve insufficiency, mild (1+) tricuspid valve insufficiency and moderate (2+) eccentric aortic valve insufficiency on recent echocardiogram done here on September 25, 2024 - Noted. 9. Essential hypertension; on carvedilol twice daily, losartan, spironolactone and bumetanide - Hold all antihypertensive medications except carvedilol. Restart diuretics when volume status restored. 10. Hyperlipidemia; on rosuvastatin - Resume statin an check Lipid Profile. 11. DM-2; of unknown control on dapagliflozin and semaglutide - Hold current hypoglycemia medications. ADA/renal diet with FSBS q. AC/HS plus SSI. Check HgbA1c to objectively evaluate quality of diabetic control. 12. HIRA; on ferrous sulfate twice daily - Stable with hemoglobin of 14.6 g/dL and MCV of 94.9fL present on admission. 13. Depression; on sertraline - Maintain on sertraline as before. 14. History of muscle spasms; on tizanidine twice daily as needed - Current therapy to continue as previous. 15. GERD; on pantoprazole - Resume PPI. 16. OA - Give acetaminophen prn as outlined in #1. 17. DVT prophylaxis - Patient on apixaban for #6 which will be continued. Total time: Approximately (but not less than) 75 minutes. Charges/Coding Visit Charges Inpatient E&M: 73688 Init Hosp L3 10/19/24 0621 <Electronically signed by Rahul Chavez DO> Cosigner Signature (if applicable): CC: Dr. Daksha Turner MD; Dr. Rahul Chavez DO~ Signed [facility] Work Phone: [phone] History and physical note [facility] Medical Records Department [address] [place] [id number] H&P Exam - Hospitalist 10/19/24 0418 MR#: [id number] Acct: [id number] Name: YEFRI YANEZ Rep #:[id number] : 1965 59 From: Rahul See DO PCP: Dr. Daksha Turner MD Status :ADM IN Location: [place] [id number] HPI - General General Date of Admission: 10/19/24 Date of Service: 10/19/24 Chief Complaint: Abdominal Pain and Diarrhea. HPI Narrative YEFRI YANEZ, is a 59 M with a past medical history of essential hypertension; on carvedilol twice daily, losartan, spironolactone and bumetanide, hyperlipidemia; on rosuvastatin, chronic tobacco abuse; with subsequent COPD, chronic hypoxic respiratory failure; on 3L NC continuous, obesity (class II); with BMI of 35.3 this admission, NIMCO; on CPAP, DM-2; of unknown control on dapagliflozin and semaglutide, chronic atrial fibrillation; s/p DCCV (2021) on apixaban twice daily, history of CHF; with preserved LVEF of ~50% with mild concentric LVH, borderline global hypokinesis of the left ventri michael and [id number]-ed-myfzpznu (1-2+) eccentric mitral valve insufficiency, mild(1+) tricuspid valve insufficiency and moderate (2+) eccentric aortic valve insufficiency on recent echocardiogram done here on September 25, 2024, history of metastatic renal cancer to the bone; s/p Right nephrectomy on cabozantinib followed by Dr. Botello of oncology, CKD; stage IIIb-IV, HIRA; on ferrous sulfate twice daily, depression; on sertraline, history of muscle spasms; on tizanidine twice daily as needed, GERD; on pantoprazole, chronic diarrhea (for months) and OA who presents to [facility] ER complaining of abdominal pain and diarrhea. Mr. Yanez reports his symptoms began approximately 1 week prior to admission with an acute worsening of his chronic diarrhea causing him to feel dehydrated. He also admits to generalized cramping abdominal pain in addition to bloating with nausea with the patient feeling like he is becoming dehydrated. He states his last colonoscopy was more than 10 years ago and he is interested to find solutions for his diarrhea because he is going to the bathroom frequently at night. He denies associated fever, chills, vomiting, constipation, blood in stools, recent antibiotics, known sick contacts, significant travel, dysuria, hematuria, headache or rash. In the ER he underwent CT scan of the abdomenand pelvis without contrast that revealed previous Right-sided nephrectomy with multifocal bone Metastatic disease and CXR that revealed Right lateral chest wall mass complicated by acute worsening of chronic Diarrhea and transient Hypotension of 87/45 mmHg noted shortly after admission and he was then admittedto the PCU for ongoing care for stated is expected to extend beyond 2 midnights. [facility] Medical History Atrial fibrillation Abnormal chest x-ray Warfarin-induced coagulopathy Chronic a-fib CKD (chronic kidney disease) CKD (chronic kidney disease), stage III Systolic CHF Tobacco use NIMCO on CPAP Metastatic renal cell carcinoma to bone Renal cell cancer Hyperlipidemia GERD (gastroesophageal reflux disease) COPD (chronic obstructive pulmonary disease) Atrial fibrillation Hypertension Home Medications ?Medication ?Instructions ?Recorded ?Last Taken ?Type albuterol sulfate 2.5 mg/3 mL 2.5 mg (3 mL) inhalation PRN PRN 06/29/22 Unknown Rx (0.083 %) solution for nebulization Shortness Of Breat h #75 mL ferrous sulfate 325 mg (65 mg 325 mg PO BID #30 tabs 0 06/29/22 Unknown Rx iron) tablet fluticasone fur. 100 mcg-umeclid 1 inh inhalation MONICA Y #28 ea 06/29/22 Unknown Rx 62.5 mcg-vilant 25 mcg inhalat.powder (Trelegy Ellipta) pantoprazole 40 mg tablet,delayed 40 mg PO DAILY gerd #30 tabs 06/29/22 Unknown Rx release potassium chloride 20 mEq 20 meq PO DAILY #30 tabs Unknown Rx tablet,extended release rosuvastatin 40 mg tablet 40 mg PO DAILY cholesterol # 30 tabs 06/29/22 Unknown Rx losartan 50 mg tablet 50 mg PO DAILY #90 tabs 09/06 07/28 Unknown Rx spironolactone 25 mg tablet 25 mg PO DAILY #90 tabs Unknown Rx carvedilol 12.5 mg tablet 12.5 mg PO BID #180 TABLETS 06/04/24 Unknown Rx semaglutide 0.25 mg or 0.5 mg (2 0.25 mg subcut QWEEK 06/20/24 Unknown History mg/3 mL) subcutaneous pen injector (Ozempic) cabozantinib 20 mg tablet 20 mg PO QDAY 08/09/24 Unkno wn History apixaban 5 mg tablet (Eliquis) 5 mg PO BID #60 tabs Unknown Rx Handicap Placard #1 ea 10/02/24 Unknown Rx bumetanide 2 mg tablet 2 mg PO ONCE 10/02/24 Unknow n History calcitriol 0.25 mcg capsule 0.25 mcg PO QDAY 10/02/24 Unknown History dapagliflozin propanediol 5 mg 5 mg PO QDAY 10/02/24 U nknown History tablet (Farxiga) sertraline 50 mg tablet 50 mg PO QDAY 10/02/24 Unkno wn History tizanidine 4 mg capsule 4 mg PO BID PRN 10/02/24 Unk nown History Allergy/AdvReac Type Severity Reaction Status Date / Time lisinopril Allergy Severe Angioedema Verified 10/18/24 21:09 guaifenesin (From Mucinex) Allergy Intermediate Bleeding Verified 10/18/24 21:09 aspirin (ASA) Allergy Other Verified 10/18/24 21:09 mushroom (mushrooms) Allergy Hives Verified 10/18/24 21:09 Penicillins Allergy PT UNSURE Verified 10/18/24 21:09 OF REACTION shellfish derived Allergy Hives Verified 10/18/24 21:09 Family History Father Cancer Mother Heart disease Hypertension Myocardial infarction Surgical History History of cardiac cath (~07/2021) History of cardioversion (~09/2021) History of nephrectomy, right Social History household members: spouse and family Smoking Status: Current every day smoker tobacco type: cigarettes Electronic Cigarette Use: with nicotine alcohol intake: current alcohol intake frequency: holidays/special occasions only substance use type: does not use ROS ROS Narrative Review of Systems: Constitutional: Patient denies fever or chills, Eyes: Patient denies change in vision or discharge from eyes. ENT: Patient denies runny nose, sore throat or ear pain. Resp: Patient denies shortness of breath while he is on his 3L NC. CV: Patient denies chest pain, palpitations, heart racing or lower extremity edema. GI: Patient admits to cramping abdominal pain with bloating and acute worsening of chronic nonbloody diarrhea as per HPI. : Patient denies dysuria or hematuria. MSK: Patient denies arthralgias or myalgias. Skin: Patient denies rash, abscess, wounds or jaundice. Psych: Patient denies symptoms of uncontrolled depression or anxiety. Neuro: Patient denies headache, paresthesias or focal neurologic deficits. Allergy: Patient denies lip swelling, tongue swelling or urticaria. Hematology: Patient admits to easy bleeding and easy bruisability on apixaban. Endocrinology: Patient denies polyuria, polydipsia, polyphagia or heat/cold intolerance. 14 point ROS otherwise negative except for positives noted above in HPI. Vital Signs Vital Signs Vital Signs: 10/18/24 21:03 10/18/24 21:11 10/18/24 21:13 Temperature 98.3 F 98.3 F Temperature Source Temporal Oral Pulse Rate 98 79 Respiratory Rate 18 15 Respiratory Effort Normal Non-Labored Respiratory Pattern Normal Blood Pressure 77/49 L 126/108 H Blood Pressure Mean 58 114 Pulse Ox 98 100 Oxygen Delivery Method Room Air Nasal Cannula Oxygen Flow Rate (L/min) 3 10/18/24 21:13 10/18/24 22:03 10/18/24 22:08 Temperature 98.3 F Temperature Source Oral Pulse Rate 73 Respiratory Rate 17 Respiratory Effort Respiratory Pattern Blood Pressure 126/108 H 89/69 L 89/69 L Blood Pressure Mean 114 75 75 Pulse Ox 97 Oxygen Delivery Method Nasal Cannula Oxygen Flow Rate (L/min) 3 10/18/24 22:15 10/18/24 22:45 10/18/24 23:00 Temperature 98.3 F Temperature Source Oral Pulse Rate 80 87 Respiratory Rate 23 H 19 H Respiratory Effort Respiratory Pattern Blood Pressure 83/62 L 86/69 L Blood Pressure Mean 68 74 Pulse Ox 100 97 Oxygen Delivery Method Nasal Cannula Oxygen Flow Rate (L/min) 3 10/18/24 23:03 10/18/24 23:15 10/18/24 23:30 Temperature Temperature Source Pulse Rate 78 82 76 Respiratory Rate 26 H 17 17 Respiratory Effort Respiratory Pattern Blood Pressure 86/69 L 89/76 L 92/65 Blood Pressure Mean 75 82 74 Pulse Ox 93 Oxygen Delivery Method Oxygen Flow Rate (L/min) 10/18/24 23:45 10/19/24 00:00 10/19/24 00:00 Temperature Temperature Source Pulse Rate 74 83 Respiratory Rate 15 17 Respiratory Effort Respiratory Pattern Blood Pressure 92/77 102/74 102/74 Blood Pressure Mean 83 83 82 Pulse Ox 97 100 Oxygen Delivery Method Nasal Cannula Oxygen Flow Rate (L/min) 3 10/19/24 00:14 10/19/24 00:15 10/19/24 00:30 Temperature 98.3 F Temperature Source Oral Pulse Rate 79 80 Respiratory Rate 20 H 20 H Respiratory Effort Respiratory Pattern Blood Pressure 102/74 87/78 L 102/78 Blood Pressure Mean 83 83 86 Pulse Ox 100 Oxygen Delivery Method Nasal Cannula Oxygen Flow Rate (L/min) 3 10/19/24 00:31 10/19/24 00:45 10/19/24 00:59 Temperature 98.0 F Temperature Source Temporal Pulse Rate 81 Respiratory Rate 18 Respiratory Effort Respiratory Pattern Blood Pressure 108/82 H 97/75 Blood Pressure Mean 93 82 Pulse Ox 100 100 100 Oxygen Delivery Method Nasal Cannula Oxygen Flow Rate (L/min) 3 10/19/24 01:00 10/19/24 01:14 10/19/24 01:15 Temperature 98.2 F Temperature Source Temporal Pulse Rate 83 88 72 Respiratory Rate 21 H 20 H 18 Respiratory Effort Respiratory Pattern Blood Pressure 97/75 102/68 103/78 Blood Pressure Mean 83 79 88 Pulse Ox 98 97 100 Oxygen Delivery Method Nasal Cannula Oxygen Flow Rate (L/min) 10/19/24 01:30 10/19/24 01:45 10/19/24 02:02 Temperature Temperature Source Pulse Rate 75 77 85 Respiratory Rate 19 H 17 19 H Respiratory Effort Respiratory Pattern Blood Pressure 90/70 103/83 H 87/45 L Blood Pressure Mean 78 88 58 Pulse Ox 100 100 Oxygen Delivery Method Oxygen Flow Rate (L/min) 10/19/24 02:09 10/19/24 02:11 10/19/24 02:15 Temperature Temperature Source Pulse Rate 83 86 68 Respiratory Rate 18 18 15 Respiratory Effort Respiratory Pattern Blood Pressure 102/68 102/68 112/64 Blood Pressure Mean 80 79 75 Pulse Ox 100 98 100 Oxygen Delivery Method Nasal Cannula Oxygen Flow Rate (L/min) 10/19/24 02:30 10/19/24 02:45 10/19/24 03:00 Temperature Temperature Source Pulse Rate 81 77 81 Respiratory Rate 18 19 H 22 H Respiratory Effort Respiratory Pattern Blood Pressure 96/74 106/73 104/62 Blood Pressure Mean 82 83 74 Pulse Ox 100 100 100 Oxygen Delivery Method Oxygen Flow Rate (L/min) 10/19/24 03:15 10/19/24 03:19 10/19/24 03:30 Temperature 98.4 F Temperature Source Pulse Rate 80 88 78 Respiratory Rate 18 18 19 H Respiratory Effort Respiratory Pattern Blood Pressure 104/52 L Blood Pressure Mean 69 Pulse Ox 100 96 100 Oxygen Delivery Method Oxygen Flow Rate (L/min) 10/19/24 03:45 10/19/24 04:00 Temperature Temperature Source Pulse Rate 78 80 Respiratory Rate 19 H 18 Respiratory Effort Respiratory Pattern Blood Pressure 92/75 Blood Pressure Mean 83 Pulse Ox 99 100 Oxygen Delivery Method Oxygen Flow Rate (L/min) Weight Weight: 252 lb 13.923 oz Body Mass Index (BMI) 35.2 Physical Exam Const alert, oriented x3 and no apparent distress Constitutional Narrative: Obese with chronically ill but nontoxic appearance. General Appearance: cooperative HEENT normocephalic, head/scalp atraumatic and hearing grossly normal bilaterally HEENT Narrative: Mucous membranes dry. Eyes PERRL and EOMs intact bilaterally Neck no lymphadenopathy and supple Resp normal respiratory effort, no retractions, no use of accessory muscles and clearto auscultation bilaterally Cardio regular rate and regular rhythm GI soft to palpation and non-distended GI Narrative: Generalized tenderness to palpation with no guarding or rebound. Extremity normal to inspection, full ROM and no clubbing, cyanosis or edema Skin Skin Narrative: Patient has no evidence of rash, abscess, wounds or jaundice. Neuro oriented x3, CN's II-XII intact bilaterally, moves all extremities and no focal motor deficits Sensorium / Orientation: awake, alert, oriented to person, oriented to place andoriented to time Speech: speech normal Psych affect normal Results Medical Records Data Attestation: I reviewed the patient's medical records Lab / Micro Data Attestation: I reviewed the patient's lab results. 10/18/24 21:15 10/18/24 21:15 Labs: Laboratory Results - last 24 hr 10/18/24 00:11: Urine Color Yellow, Urine Clarity Clear, Urine pH 5.0, Ur Specific [place] 1.020, Urine Protein 30 H, Urine Glucose (UA) 100 H, Urine Ketones Negative, Urine Occult Blood 10 H, Urine Nitrite Negative, Urine Bilirubin 1 H, Urine Urobilinogen Normal, Ur Leukocyte Esterase Negative, Urine RBC 0-5 SEEN, Urine WBC 0-5 SEEN, Ur Squamous Epith Cells 0-5 SEEN, Urine Bacteria 1+, Hyaline Casts 10-25 SEEN, Urine Mucus 0 SEEN 10/18/24 21:15: WBC 5.1, RBC 4.48 L, Hgb 14.6, Hct 42.5, MCV 94.9 H, MCH 32.6 H,MCHC 34.4, RDW Std Deviation 62.2 H, RDW Coeff of Lizzie 18.1 H, Plt Count 201, MPV10.4, Immature Gran % (Auto) 0.400, Neut % (Auto) 66.2, Lymph % (Auto) 22.9, Burt % (Auto) 7.8, Eos % (Auto) 2.5, Baso % (Auto) 0.2, Absolute Neuts (auto) 3.4, Absolute Lymphs (auto) 1.17, Nucleated RBC % 0, Sodium 138, Potassium 4.6, Chloride 103, Carbon Dioxide 18.1 L, Anion Gap 16 H, BUN 31 H, Creatinine 2.77 H, Est GFR (MDRD) Non-Af 25 L, BUN/Creatinine Ratio 11.3, Glucose 116 H, Calcium 9.5, Total Bilirubin 0.54, AST 46 H, ALT 47,Alkaline Phosphatase 58, Total Protein 7.0, Albumin 4.0, Globulin 3.0, Albumin/Globulin Ratio 1.3, Lipase 86 H 10/18/24 23:25: Lactic Acid 1.0 Micro: Microbiology 10/18/24 22:00 Stool Enteric Bacteriology - Final 10/18/24 23:25 Mucosa - Nose SARS-CoV-2, Influenza & RSV (PCR) - Final 10/18/24 22:00 Stool Clostridioides difficile (PCR) - Final Imaging Radiology Impression Abdomen/Pelvis CT 10/18/24 22:48 IMPRESSION: No acute abdominopelvic findings. Status post right-sided nephrectomy with multifocal bone metastatic disease. [facility] 10/18/24 22:50 IMPRESSION: Right lateral chest wall mass. Reading Location: [facility] Assessment & Plan Assessment/Plan (1) Diarrhea: QUALIFIERS: Diarrhea type: presumed infectious Qualified Code(s):R19.7 - Diarrhea, unspecified (2) Hypotension due to hypovolemia: (3) Metastatic renal cell carcinoma to bone: (4) Renal cell cancer: QUALIFIERS: Laterality: right Qualified Code(s): C64.1 - Malignant neoplasm of right kidney, exceptrenal pelvis (5) CKD (chronic kidney disease) stage 3, GFR 30-59 ml/min: QUALIFIERS: Chronic kidney disease stage 3 subtype: stage 3b (GFR 30-44) Qualified Code(s): N18.32 - Chronic kidney disease, stage 3b (6) Obesity (BMI 30.0-34.9): (7) Chronic atrial fibrillation: (8) Chronic anticoagulation: PLAN: Plan 1. Acute worsening of chronic nonbloody Diarrhea - Admit to PCU and placed on enteric precautions. Check stool studies. Give empiric IV metronidazole until stool studies confirm negative for infectious etiology. Give ondansetron IV as needed for nausea or vomiting. Give acetaminophen as needed for xuob-np-rspoivaf (level 1-5/10) pain or fever. Give morphine IV as needed for severe (level 6-10/10)pain. Patient was not suspected to have sepsis present on admission with normal white blood cell count 5.1 K, normal lactate of 1 mmol/L and persistently afebrile since admission. Finally, we will consult gastroenterology to see this patient on rounds in the a.m. for further recommendations with help appreciated in advance. 2. Hypotension of 87/45 mmHg noted shortly after admission likely due to #1 - Volume resuscitate and follow vital signs per protocol for hopeful improvement. 3. CT scan of the abdomen and pelvis without contrast that revealed previous Right-sided nephrectomy with multifocal bone Metastatic disease and CXR that revealed Right lateral chest wall mass in thesetting of a known history of metastatic renal cancer complicating #1 & #2 - Noted. 4. CKD; stage IIIb-IV adding to the medical complexity of #1 - #3 - Check renalindices daily to ensure continued stability with suspected volume contraction due to #1. 5. Obesity (class II); with BMI of 35.3 this admission plus NIMCO; on CPAP addingto the burden of disease outlined from #1 - #4 - Weight loss will be recommended. Check TSH. Resume nocturnal CPAP. Thiscomplicates his case ad may hamper recovery. 6. Chronic atrial fibrillation; s/p DCCV (2021) on apixaban twice daily adding to the medical complexity of #1 - #5 - Maintain apixaban as previous. 7. Chronic tobacco abuse; with subsequent COPD and chronic hypoxic respiratory failure; on 3L NC continuous - Stable without evidence of acute flare at this time. Continue scheduled and as needed nebulizers/inhalers. Tobacco cessation will be strongly encouraged with nicotine patch offered to control cravings. 8. History of CHF; with preserved LVEF of ~50% with mild concentric LVH, borderline global hypokinesis of the Left ventricle and xtmf-dv-izxnndso (1-2+) eccentric mitral valve insufficiency, mild (1+) tricuspid valve insufficiency and moderate (2+) eccentric aortic valve insufficiency on recent echocardiogram done here on September 25, 2024 - Noted. 9. Essential hypertension; on carvedilol twice daily, losartan, spironolactone and bumetanide - Hold all antihypertensive medications except carvedilol. Restart diuretics when volume status restored. 10. Hyperlipidemia; on rosuvastatin - Resume statin an check Lipid Profile. 11. DM-2; of unknown control on dapagliflozin and semaglutide - Hold current hypoglycemia medications. ADA/renal diet with FSBS q. AC/HS plus SSI. Check HgbA1c to objectively evaluate quality of diabetic control. 12. HIRA; on ferrous sulfate twice daily - Stable with hemoglobin of 14.6 g/dL and MCV of 94.9fL present on admission. 13. Depression; on sertraline - Maintain on sertraline as before. 14. History of muscle spasms; on tizanidine twice daily as needed - Current therapy to continue as previous. 15. GERD; on pantoprazole - Resume PPI. 16. OA - Give acetaminophen prn as outlined in #1. 17. DVT prophylaxis - Patient on apixaban for #6 which will be continued. Total time: Approximately (but not less than) 75 minutes. Charges/Coding Visit Charges Inpatient E&M: 65304 Init Hosp 10/19/24 0621 Cosigner Signature (if applicable): CC: Dr. Daksha Turner MD; Dr. Rahul Chavez, DO~ Signed [facility]08-13-2025 Radiology Diagnostic study note [facility] Imaging Services [address] [place] [address] Abdomen/Pelvis without Cont MR#: [id number] Acct: [id number] Name: YEFRI YANEZ Rep #: [id number] : 1965 M 59 From: Jaimee Quinn MD PCP: Dr. Daksha Turner MD Status: REG ER Study:Abdomen/Pelvis without Cont Date of Exa m: 10/18/24 Exam# [id number] Ordering Dr: Eunice Jackson MD PROCEDURE: ABDOMEN/PELVIS WITHOUT CONT 10/18/2024 REASON FOR EXAM: PAIN TECHNIQUE: ABDOMEN/PELVIS WITHOUT CONT Noncontrast technique limits evaluation of the abdominal and pelvic viscera. Coronal and Sagittal reconstruction series were provided. One or more dose reduction techniques were used (e.g., Automated exposure control, adjustment of the mA and/or kV according to patient size, use of iterative reconstruction technique). RADIATION DOSE SUMMARY: CTDlvol: 21 mGy DLP: 1073 mGycm COMPARISON: 06/13/2024 FINDINGS: Peripheral right middle lobe scar/atelectasis with bronchiectasis. Upper limitsof normal heart size, small pericardial effusion. Partially imaged expansile lytic lesion, right 6th rib, likely metastatic disease. Tiny bilateral pleural effusions. Unremarkable liver, gallbladder, pancreas, spleen, adrenal glands. Status post right-sided nephrectomy. Normal left kidney. No hydronephrosis normal bladder. Prostate. No retroperitoneal or pelvic adenopathy. No free air. Infrarenal aortic aneurysm, measuring 4.1 cm maximum AP dimension, stable. The bilateral common iliac arteries are also dilated, measuring up to 2.1 cm on the right, and 2.2 cm on the left, also stable. Nonobstructed bowel. Normal appendix. Diverticulosis. No acute large bowel findings. Lumbar spine degeneration. No acute abdominal wall findings. There is redemonstration of expansile lytic lesion, inthe L4 posterior elements, also consistent with metastatic disease. CT/Abdomen/Pelvis without Cont IMPRESSION: No acute abdominopelvic findings. Status post right-sided nephrectomy with multifocal bone metastatic disease. Reading Location: [place] [address] CC: Dr. Daksha Turner MD; Dr. 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: Signed [facility]08-13-2025 Radiology Diagnostic study note [facility] Imaging Services [address] [place], [place] [address] Chest PA and Lateral MR#: [id number] Acct: [id number] Name: YEFRI YANEZ Rep #: [id number] : 1965 M 59 From: Len Ng MD PCP: Dr. Daksha Turner MD Status: REG ER Study:Chest PA and Lateral Date of Exam: 10/18/24 Exam# [id number] Ordering Dr: Eunice Jackson MD PROCEDURE: CHEST PA AND LATERAL 10/18/2024 REASON FOR EXAM: FEELING UNWELL TECHNIQUE: CHEST PA AND LATERAL COMPARISON: 02/10/2024 CT. FINDINGS: Right lateral chest wall masslike lesion may represent a previously expansile right 6th rib lesion.No consolidation. The heart is normal in size. RAD/Chest PA and Lateral IMPRESSION: Right lateral chest wall mass. Reading Location: [id number] CC: Dr. Daksha Turner MD; Dr. 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: Signed [facility]06-09-2025 Evaluation note* Diagnosis Onset Date Resolution Status Admit Date Chest pain acute August 14, 2024 12:55pm [...] failure) chron ic October 02, 2024 2:24pm Chronic anticoagulation acute A ugust 2024 4:52am Diarrhea acute October 19, 2 025 4:52am Hypotension due to hypovolemia acute October 19, 2024 4:52am Obesity (BMI 30.0-34.9) acute A ugust 2024 4:52am Chronic atrial fibrillation chronic October 19, 2024 4:52am CKD (chronic kidney disease) stage 3, GFR 30-59 ml/min chronic October 19, 2024 4:52am Metastatic renal cell carcin paulette to bone chronic October 19 4:52am Renal cell cancer chronic October 19, 2024 4:52am [facility] Work Phone: [phone]) 968-361806-09-2025 Evaluation note* Diagnosis Onset Date Resolution Status Admit Date Chest pain acute August 14, 2024 12:55pm [...] failure) chron ic October 02, 2024 2:24pm Chronic anticoagulation acute A ugust 2024 4:52am Hypotension due to hypovolemia acute October 19, 2024 4:52am Obesity (BMI 30.0-34.9) acute A ugust 2024 4:52am Chronic atrial fibrillation chronic October 19, 2024 4:52am CKD (chronic kidney disease) stage 3, GFR 30-59 ml/min chronic October 19, 2024 4:52am Metastatic renal cell carcin paulette to bone chronic October 19 4:52am Renal cell cancer chronic October 19, 2024 4:52am Diarrhea resolved October 19, 2 025 4:52am Diarrhea acute October 30, 2 025 2:26pm Personal history of colonic polyps acute October 30 2:26pm [facility] Work Phone: 1(657) 185-520204-15-2025 Evaluation note* Diagnosis Onset Date Resolution Status Admit Date Metastatic renal cell carcin paulette to bone chronic June 20, 2024 1:05pm Renal cell cancer chronic June 062024 1:05pm [facility] Work Phone: 1([phone]) 802-810004-15-2025 Evaluation note* Diagnosis Onset Date Resolution Status [...] 2024 12:55pm Hypertension inactive August 14 12:55pm [facility] Work Phone: 1(720) 635-152604-15-2025 Evaluation note* Diagnosis Onset Date Resolution Status [...] 2024 12:55pm Hypertension inactive August 14 12:55pm [facility] Work Phone: 1(211) 411-917504-15-2025 Evaluation note* Diagnosis Onset Date Resolution Status [...] Hypertension inactive October 02, 2 025 2:24pm [facility] Work Phone: [phone]) 890-350204-15-2025 Evaluation note* Diagnosis Onset Date Resolution Status Admit Date Metastatic renal cell carcin paulette to bone chronic June 20, 2024 1:05pm Renal cell cancer chronic June 062024 1:05pm Chest pain acute August 14, 2024 12:55pm Hypertension acute August 14 12:55pm Renal failure acute August 14, 2 025 12:55pm Atrial fibrillation chronic Hailee 9th, 2025 12:55pm CHF (congestive heart failure) chron ic August 14, 2024 12:55pm Hypertension acute October 02, 2 025 2:24pm Hypotension acute October 02 2:24pm Renal failure acute October 02, 2024 2:24pm Atrial fibrillation chronic October 02, 2024 2:24pm CHF (congestive heart failure) chron ic October 02, 2024 2:24pm [facility] Work Phone: 1(950) 567-121604-09-2025 Radiology Diagnostic study note [facility] Imaging Services [address] [place] [address] CT Chest, Abd, Pel w/Contrast MR#: [id number] Acct: [id number] Name: YEFRI YANEZ Rep #: [id number] : 1965 M 59 From: Manuela Holman MD PCP: Dr. Daksha Turner MD Status: REG CLI Study:CT Chest, Abd, Pel w/Contrast Date of E xam: 06/13/24 Exam# [id number] Ordering Dr: Jose Botello MD PROCEDURE: CT [...] cm. *Status post right-sided nephrectomy. Reading Location: [facility] CC: Dr. Daksha Turner MD; Dr. 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 Jose Ramon Turner MD Status: ADM LISY Location: [address] Reason for Visit Reason for Visit: Shortness of breath Subjective Subjective Mr. Yanez is a 57-year-old -Monegasque male who presented to the emergency department at [facility] on 12/15/2022 with worsening shortness of breath. Patient told the admitting physician that he is supposed to be wearing his oxygen all the time at home however he is only wearing it whenneeded. His oxygen was written for by Dr. Yanez and is to be 3 L jhrabu-dsg-qzdcp. He does have a history of systolic [...] is supposed to be on 3 L dcshjo-fyv-mpozj of oxygen. He tells me that he [...] (Auto) 87.2 H, Lymph % (Auto) 7.4L, Burt % (Auto) 4.6, Eos % (Auto) 0.1, [...] 79.3 H, Lymph % (Auto) 12.9 L, Burt % (Auto) 6.0, Eos % (Auto) 0.9, [...] habitus or healthy appearing Constitutional Narrative: Obese, -Monegasque, male, lying in bed, appears comfortable and [...] post nephrectomy 02/06/2022--> Dr. Aravind Lopez at [facility] -Currently on immunotherapy -Patient has undergone [...] in a.m. Charges/Coding Visit Charges Inpatient E&M: 48069 Subs Hosp L2 12/16/22 1238 <Electronically signed by Carol Chiu DO> Cosigner Signature (if applicable): CC: ~ Signed [facility] Work Phone: 1(104) 550-826810-10-2023 History and physical note Author Marquise Padilla [facility] December 15, 2022 7:30pm Note Date/Time December 15, 2022 4 :56pm [facility] Health System Medical Records Department [address] [place] [address] H&P Exam - Hospitalist 12/15/22 1648 MR#: [id number] Acct: [id number] Name: YEFRI YANEZ Rep #:[id number] : 1965 57 From: Marquise ogden MD PCP: Dr. Jose Ramon Turner MD Status: ADM [place]ISY Location: [place] [address] HPI - General General Date of Admission: [...] febrile. [facility], and he is currently on immunotherapy for [...] 87.2 H, Lymph % (Auto) 7.4 L, Burt % (Auto) 4.6, Eos % (Auto) 0.1, [...] DVT: Coumadin Charges/Coding Visit Charges Inpatient E&M: 61425 Init Hosp L3 12/15/221929 <Electronically signed by Marquise Padilla MD> Cosigner Signature (if applicable): CC: Dr. Jose Ramon Turner MD; Dr. Marquise Padilla MD~ Signed [facility] Work Phone: 1([phone]) 266-955210-10-2023 Discharge summary Author Speedy Bass [facility] December 15, 2022 3:29pm Note Date/Time December 15, 2022 1 :13pm [facility] System Medical Records Department [address] [place] [address] Emergency Department Summary 12/15/22 MR#: [id number] Acct: [id number] Name: RENATAYEFRI JUSTICE Rep #:[id number] : 1965 57 From: Speedy Bass MD [...] that he has been told to use 24/ now with 3 L so I am [...] 87.2 H Lymph % (Auto) 7.4 L Burt % (Auto) 4.6 Eos % (Auto) 0.1 [...] Provider] - Disposition Disposition: Acute Care Hospital [facility] What to do if you have Problems For any increased pain, shortness of breath, bleeding, nausea or vomiting, chestpain, or any unexpected problems, contact your Primary Care Provider. Call [facility] ([phone]) or report to the closest Emergency Room. Call 911 if necessary. 12/15/22 1529 <Electronically signed by Speedy Bass MD> Cosigner Signature (if applicable): CC: Dr. Jose Ramon Turner MD ~ Signed [facility] Work Phone: [phone]) 414-817904-24-[address] Chiu [facility] June 29, 2022 11:24am Note Date/Time June 29, 2022 11: 08am [facility] Medical Records Department [address] [place] [address] Discharge Summary 06/29/22 1105 MR#: [id number] Acct: [id number] Name: YEFRI YANEZ Rep #:[id number] : 1965 57 From: Carol Chiu DO PCP: Dr. Jose Ramon Turner MD Status: ADM IN Location: [address] Date of Admission: 06/28/22 Date of Discharge: [...] distress and well nourished Constitutional Narrative: Obese, -Monegasque, upper middle-aged, male, lying in bed talking [...] (Auto) 91.8 H, Lymph % (Auto) 2.9L, Burt % (Auto) 4.4, Eos % (Auto) 0.0, [...] Self Care Charges/Coding Visit Charges Inpatient E&M: 26091 Disch Hosp >30min 06/29/22 1124 <Electronically signed by Carol Chiu DO> Cosigner Signature (if applicable): CC: Dr. Jose Ramon Turner MD; Dr. Carol Chiu, DO~ Signed [facility] Work Phone: 1(232) 937-300604-23-[address] Wei [facility] June 28, 2022 3:27pm Note Date/Time June 28, 2022 2:1 6pm [facility] Health System Medical Records Department [address] [place] [address] Progress Note 06/28/22 1412 MR#: [id number] Acct: [id number] Name: YEFRI YANEZ Rep #:[id number] : 1965 57 From: Pau Wei MD PCP: Dr. Jose Ramon Turner MD Status: ADM IN Location: [address] 1 Subjective Subjective Patient seen and examined. [...] 75.4 H, Lymph % (Auto) 16.8 L, Burt % (Auto) 6.0, Eos % (Auto) 0.5, [...] (Auto) 92.0 H, Lymph % (Auto) 4.6L, Burt % (Auto) 2.3, Eos % (Auto) 0.2, [...] is therapeutic. Charges/Coding Visit Charges Inpatient E&M: 36566 Subs Hosp L2 06/28/22 1527 <Electronically signed by Pau Wei MD> Pau Wei MD Cosigner Signature (if applicable): CC: ~ Signed [facility] Work Phone: 1(912) 326-620604-23-[address] Hastings [facility] June 28, 2022 2:56am Note Date/Time June 27, 2022 11: 30pm [facility] Health System Medical Records Department [address] [place] [address] Emergency Department Summary 06/27/22 MR#: [id number] Acct: [id number] Name: RENATAYEFRI RESHMA Rep #:[id number] : 1965 57 From: Livan Lin PCP: Dr. Jose Ramon Turner MD Status: ADM IN Location: [address] 1 HPI History of Present Illness Chief Complaint: Chest Pain Informant: patient, spouse/S.O. and family Narrative Narrative: 10-day history worsening dyspnea with exertion with mild chest discomfort. Significant other present. Diagnosed history of CHF had a heart cath at [facility] that was negative. History of paroxysmal [...] 75.4 H Lymph % (Auto) 16.8 L Burt % (Auto) 6.0 Eos % (Auto) 0.5 [...] (Auto) Neut % (Auto) Lymph % (Auto) Burt % (Auto) Eos % (Auto) Baso % [...] Atrial fibrillation Disposition Disposition: Acute Care Hospital [facility] Discharge Date/Time: 06/28/22 01:02 What to do if you have Problems For any increased pain, shortness of breath, bleeding, nausea or vomiting, chest pain, or any unexpected problems, contact your Primary Care Provider. Call [facility] ([phone]) or report to the closest Emergency Room. Call 911 if necessary. 06/28/22 0256 <Electronically signed by Livan Lin> Cosigner Signature (if applicable): CC: Dr. Jose Ramon Turner MD ~ Signed [facility] Work Phone: 1(959) 447-286104-23-2023 History and physical note Author Dr. Lu [facility] June 28, 2022 12:52am Note Date/Time June 28, 2022 12: 20am [facility] Health System Medical Records Department [address] [place] [address] H&P Exam - Hospitalist 06/28/22 0007 MR#: [id number] Acct: [id number] Name: YEFRI AYNEZ Rep #:[id number] : 1965 57 From: Estelita Lu MD PCP: Dr. Jose Ramon Turner MD Status: ADM IN Location: [place] [id number] HPI - General General Date of Admission: 06/28/22 Date of Service: 06/28/22 Chief Complaint: Dyspnea, chest pain, wheezing, cough, recent incorrect Rx bumex. HPI Narrative The patient is a 57 y/o M w/ PMHx: Obesity, NIMCO on CPAP, PAF s/p prior cardioversion on coumadin, COPD, HTN, HLD, GERD, Metastatic renal CA s/p R nephrectomy, Tobacco use who presents to the [facility] ED on 06/27/22 with history [...] 75.4 H, Lymph % (Auto) 16.8 L, Burt % (Auto) 6.0, Eos % (Auto) 0.5, [...] 23:42 EDT Reading Location ID and State: [address] [place] [address] Tel , Service support , Assessment & Plan Assessment/Plan (1) Dyspnea: PLAN: Plan The patient is a 57 y/o M w/ PMHx: Obesity, NIMCO on CPAP, PAF s/p prior cardioversion on coumadin, COPD, HTN, HLD, GERD, Metastatic renal CA s/p R nephrectomy, Tobacco use who presents to the [facility] ED on 06/27/22 with history [...] spine 12/2021, 02/06/2022 right radical nephrectomy at [facility], CT scan on 03/26/2022 showed no [...] 75 minutes. Charges/Coding Visit Charges Inpatient E&M: 42942 Init Hosp L3 Procedures Hospitalists Procedures: 65435 Advncd Care Plan 30 Min 06/28/22 0052 <Electronically signed by Estelita Lu MD> Cosigner Signature (if applicable): CC: Dr. Estelita Lu MD; Dr. Jose Ramon Turner MD~ Signed [facility] Work Phone: 1([phone]) 350-871203-15-[address] Che [facility] May 20, 2022 9:40am Note Date/Time May 20, 2022 9:4 0am [facility] Health System Medical Records Department [address] [place] [address] Discharge Summary 05/20/22 0939 MR#: [id number] Acct: [id number] Name: YEFRI YANEZ Rep #:[id number] : 1965 57 From: Jesús Che DO PCP: Dr. Jose Ramon Turner MD Status: ADM IN Location: [place] [address] Providers Date of Admission: 05/18/22 Primary Care [...] to been established with oncology at the [facility] and then at [facility] but due to insurance changes, he will be following up with [facility]. DVT ppx: Coumadin therapeutic Discharge home [...] Qty: 60 0RF Referrals / Follow Up: [facility] [Provider Group] - 05/27/22 10:30 am *[facility] [Provider Group] - Within 1 Month Jose Ramon Turner MD [Primary Care Provider] - Within 2 Weeks Disposition Disposition (needs filled in before D/C Order can be placed): Home, Self Care Charges/Coding Visit Charges Inpatient E&M: 45888 Disch Hosp >30min 05/20/22 0940 <Electronically signed by Jesús Che DO> Cosigner Signature (if applicable): CC: Dr. Jose Ramon Turner MD; Dr. Jesús Che DO~ Signed [facility] Work Phone: 1([phone]) [phone] Che [facility] May 20, 2022 9:39am Note Date/Time May 20, 2022 9:3 3am [facility] Medical Records Department [address] [place] [address] Instructions for Home/Discharge Instructions 05/20/22 0932 MR#: [id number] Acct: [id number] Name: YEFRI YANEZ Rep #:[id number] : 1965 57 From: Jesús Che DO [...] Qty: 60 0RF Referrals / Follow Up: [facility] [Provider Group] - 05/27/22 10:30 am *[facility] [Provider Group] - Within 1 Month Jose Ramon Turner MD [Primary Care Provider] - Within 2 Weeks Disposition Disposition (needs filled in before D/C Order can be placed): Home, Self Care 05/20/22 0939<Electronically signed by Jesús Che DO>Jesús Che DO CC: Dr. Jose Ramon Turner MD; Dr. Alicia Dukes MD ~ Signed [facility] Work Phone: 1(425) 749-946803-15-[address] Che [facility] May 20, 2022 9:32am Note Date/Time May 20, 2022 8:3 4am [facility] Medical Records Department [address] [place] [address] Progress Note - Hospitalist 05/20/22 0831 MR#: [id number] Acct: [id number] Name: YEFRI YANEZ Rep #:[id number] : 1965 57 From: Jesús Che DO PCP: Dr. Jose Ramon Turner MD Status: ADM IN Location: [place] [address]- Reason for Visit Reason for Visit: Diagnoses [...] Cosigner Signature (if applicable): CC: ~ Signed [facility] Work Phone: 1(854) 772-925503-14-[address] Che [facility] May 19, 2022 1:50pm Note Date/Time May 19, 2022 8:1 1am [facility] System Medical Records Department [address] [place] [address] Progress Note - Hospitalist 05/19/22 0808 MR#: [id number] Acct: [id number] Name: YEFRI YANEZ Rep #:[id number] : 1965 57 From: Jesús Che DO PCP: Dr. Jose Ramon Turner MD Status: ADM IN Location: [place] [address] Reason for Visit Reason for Visit: Diagnoses [...] 80.8 H, Lymph % (Auto) 13.3 L, Burt % (Auto) 4.9, Eos % (Auto) 0.2, [...] 80.2 H, Lymph % (Auto) 14.8 L, Burt % (Auto) 4.0, Eos % (Auto) 0.5, [...] Coumadin therapeutic Charges/Coding Visit Charges Inpatient E&M: 58763 Subs Hosp L2 05/19/22 1350 <Electronically signed by Jesús Che DO> Cosigner Signature (if applicable): CC: ~ Signed [facility] Work Phone: 1(119) 801-498803-13-[address] Banda [facility] May 18, 2022 8:58pm Note Date/Time May 18, 2022 4:1 8pm [facility] Medical Records Department [address] [place] [address] Emergency Department Summary 05/18/22 MR#: [id number] Acct: [id number] Name: YEFRI YANEZ Rep #:[id number] : 1965 57 From: Kassy Banda MD PCP: Dr. Jose Ramon Turner MD Status: ADM IN Location: [place] [address] HPI History of Present Illness Chief Complaint: [...] Medical decision making narrative: Patient placed on valve setter to evaluate for arrhythmia. Chest x-ray obtained [...] 80.8 H Lymph % (Auto) 13.3 L Burt % (Auto) 4.9 Eos % (Auto) 0.2 [...] (Auto) Neut % (Auto) Lymph % (Auto) Burt % (Auto) Eos % (Auto) Baso % [...] likely: Positive for bilateral breath sounds and [employer] withhout PTX Management Discussion w/another healthcare provider: [...] Provider] - Disposition Disposition: Acute Care Hospital [facility] What to do if you have Problems For any increased pain, shortness of breath, bleeding, nausea or vomiting, chestpain, or any unexpected problems, contact your Primary Care Provider. Call [facility] ([phone]) or report to the closest Emergency Room. Call 911 if necessary. 05/18/222057 <Electronically signed by Kassy Banda MD> Cosigner Signature (if applicable): CC: Dr. Jose Ramon Turner MD ~ Signed [facility] Work Phone: 1(149) 350-888703-13-2023 History and physical note Author Dr. Dukes [facility] May 18, 2022 7:34pm Note Date/Time May 18, 2022 6:3 8pm [facility] Medical Records Department [address] [place] [address] H&P Exam - Hospitalist 05/18/22 1823 MR#: [id number] Acct: [id number] Name: YEFRI YANEZ Rep #:[id number] : 1965 57 From: Alicia Dukes MD PCP: Dr. Jose Ramon Turner MD Status: ADM IN Location: [facility] [id number]- 1 HPI - General General Date of Admission: 05/18/22 Date of Service: 05/18/22 Chief Complaint: SOB, weight gain HPI Narrative YEFRI YANEZ, is a 57 M with a history of congestive heart failure, hypertension, NIMCO, renal cancer status post unilateral nephrectomy in March, A-fib on Coumadin presented to [facility] 05/18/2022 with increasing weight and shortness of [...] 80.8 H, Lymph % (Auto) 13.3 L, Burt % (Auto) 4.9, Eos % (Auto) 0.2, [...] 16:45 EDT Reading Location ID and State: [facility] / [place] , Service support , Assessment & Plan [...] 60 minutes Charges/Coding Visit Charges Inpatient E&M: 61169 Init Hosp L2 05/18/221933 <Electronically signed by Alicia Dukes MD> Cosigner Signature (if applicable): CC: Dr. Jose Ramon Turner MD; Dr. Alicia Dukes MD~ Signed [facility] Work Phone: 1(933) 757-934802-08-[address] Chiu [facility] April 15, 2022 4:54pm Note Date/Time April 15, 2022 4 :54pm [facility] System Medical Records Department [facility] [place] [address] Progress Note - Hospitalist 04/15/22 1647 MR#: [id number] Acct: [id number] Name: RENATAYEFRI RESHMA Rep #:[id number] : 1965 57 From: Carol Chiu DO PCP: Dr. Jose Ramon Turner MD Status: ADM IN Location: [place] [address] Reason for Visit Reason for Visit: Diagnoses [...] 74.5 H, Lymph % (Auto) 15.1 L, Burt % (Auto) 8.4, Eos % (Auto) 0.4, [...] distress and well nourished Constitutional Narrative: Obese, -Monegasque, male lying in bed on supplemental oxygen [...] be deferred till tomorrow -Troponins have been [phone] -This elevation may be related to his [...] post nephrectomy 02/06/2022--> Dr. Aravind Lopez at [facility] -Currently on chemotherapy -Patient has undergone [...] -INR therapeutic Charges/Coding Visit Charges Inpatient E&M: 89685 Subs Hosp L2 04/15/22 1654 <Electronically signed by Carol Chiu DO> Cosigner Signature (if applicable): CC: ~ Signed [facility] Work Phone: 1(838) 876-287502-07-[address] Chiu [facility] April 14, 2022 6:11pm Note Date/Time April 14, 2022 7 :40am [facility] Medical Records Department [address] [place] [address] Progress Note - Hospitalist 04/14/22 0737 MR#: [id number] Acct: [id number] Name: YEFRI YANEZ Rep #:[id number] : 1965 57 From: Carol Chiu DO [...] on February 06 by Aravind Lopez at [facility]. He does have metastatic disease to [...] 79.4 H, Lymph % (Auto) 12.7 L, Burt % (Auto) 7.1, Eos % (Auto) 0.0, [...] 21:56 EST Reading Location ID and State: [address] [place] [address] Tel , Service support , Physical Exam Const alert, oriented x3, no apparent distress and well nourished Constitutional Narrative: Obese, -Monegasque, male sitting up in bed on supplemental [...] to be done tomorrow -Troponins have been [phone] -This elevation may be related to his [...] post nephrectomy 02/06/2022--> Dr. Aravind Lopez at [facility] -Currently on chemotherapy -Patient has undergone [...] in a.m. Charges/Coding Visit Charges Inpatient E&M: 57676 Subs Hosp L2 04/14/22 1811 <Electronically signed by Carol Chiu DO> Cosigner Signature (if applicable): CC: ~ Signed [facility] Work Phone: 1(347) 165-622902-07-2023 History and physical note Author Dr. Camacho [facility] April 14, 2022 12:43am Note Date/Time April 14, 2022 1 2:24am [facility] Medical Records Department [address] [place] [address] H&P Exam - Hospitalist 04/13/22 2334 MR#: [id number] Acct: [id number] Name: YEFRI YANEZ Rep #:[id number] : 1965 57 From: Dangelo Camacho MD [...] Air Oxygen Flow Rate (L/min) 04/13/22 22:42 02 22:42 Temperature Temperature Source Pulse Rate 99 [...] 79.4 H, Lymph % (Auto) 12.7 L, Burt % (Auto) 7.1, Eos % (Auto) 0.0, [...] is subtherapeutic. Charges/Coding Visit Charges Inpatient E&M: 57370 Init Hosp L3 04/14/22 0043 <Electronically signed by Dangelo Camacho MD> Cosigner Signature (if applicable): CC: Dr. Jose Ramon Turner MD; Dr. Dangelo Camacho MD~ Signed [facility] Work Phone: 1([phone]) 578-694002-07-[address] Dunn [facility] April 13, 2022 11:51pm Note Date/Time April 13, 2022 1 0:31pm [facility] Medical Records Department [address] [place] [address] Emergency Department Summary 04/13/22 MR#: [id number] Acct: [id number] Name: YEFRI YANEZ Rep #:[id number] : 1965 57 From: Kei Dunn DO [...] February [address] Aravind Lopez at [facility]. Patient reported that he is on [...] 79.4 H Lymph % (Auto) 12.7 L Burt % (Auto) 7.1 Eos % (Auto) 0.0 [...] your Primary Care Provider. Call [facility] ([phone]) or report to the closest Emergency Room. Call 911 if necessary. 04/13/22 2351 <Electronically signed by Kei Dunn DO> Cosigner Signature (if applicable): CC: Dr. Jose Ramon Turner MD ~ Signed [facility] Work Phone: [phone]) 474-521602-07-[address] Dunn [facility] April 13, 2022 11:51pm Note Date/Time April 13, 2022 1 0:31pm [facility] Medical Records Department [address] [place] [address] Emergency Department Summary 04/13/22 MR#: [id number] Acct: [id number] Name: YEFRI YANEZ Rep #:[id number] : 1965 57 From: Kei Dunn DO [...] February [address] Aravind Lopez at [facility]. Patient reported that he is on [...] 79.4 H Lymph % (Auto) 12.7 L Burt % (Auto) 7.1 Eos % (Auto) 0.0 [...] problems, contact your Primary Care Provider. Call [facility] ([phone]) or report to the closest Emergency Room. Call 911 if necessary. 04/13/22 2351 <Electronically signed by Kei Dunn DO> Cosigner Signature (if applicable): CC: Dr. Jose Ramon Turner MD ~ Signed [facility] Work Phone: 1(148) 441-879002-02-2023 NoteHNO ID: [id number] Author: Sary Garcia RN Service: ? Author Type: Registered Nurse Type: Progress Notes Filed: 04/09/2022 1:29 PM Note Text: Patient treatment being held today per physician discretion. Sary Garcia RN [facility]02-02-2023 NoteHNO ID: [id number] Author: Liliam Ashley RN Service: ? Author Type: Registered Nurse Type: Progress Notes Filed: 04/09/2022 1:29 PM Note Text: [employer] Chart Processing Date: 2022 Laboratory: Draw labs: Pending Labs. Office visit prior to treatment please verify all needed labs were drawn and review results. Chemotherapy Orders: Orders NOT released to Pharmacy. TREATMENT RN TO RELEASE Consents: Consent form needs signed by patient Special Instructions: Validate height [facility] History of Present illness Narrative* Sary Garcia RN - 04/09/2022 1:29 PM EST Patient treatment being held today per physician discretion. Sary Garcia RN BSN * Liliam Ashley RN - 04/09/2022 11:30 AM EST [employer] Chart Processing Date: 2022 Laboratory: Draw labs: Pending Labs. Office visit prior to treatment please verify all needed labs were drawn and review results. Chemotherapy Orders: Orders NOT released to Pharmacy. TREATMENT RN TO RELEASE Consents: Consent form needs signed by patient Special Instructions: Validate height Liliam Ashley RN documented in this encounterUniversity Hospitals Samaritan Medical Center02-02-2023 NoteHNO ID: [id number] Author: Haylee Wilburn MD Service: ? Author Type: Physician Type: Progress Notes Filed: 04/09/2022 4:21 PM Note Text: [facility] Progress Note SERVICE DATE: April 09, 2022 [...] started treatment with cabo + nivo on [facility] Trial on 08/08/2021 at [facility]. He has baseline HTN and developed worsening HTN after starting treatment. His cabo was held on 08/18/2021, resumed on 09/11/2021. The Nivo was held on 09/11/21 due to pneumonitis, and prednisone 60 mg daily was started and tapered off within about one month. Due to insurance change, he was taken off the trial and referred to [facility] On[facility]. All treatments were supposed to [...] [facility] in [facility] on 02/06/2022. PATHOLOGY: -Renal cell carcinoma, clear-cell type, 5.3 x 3.0 x 2.7 cm, ISUP nuclear grade 3. -Carcinoma invades renal vein and lurdes-nephritic adipose tissue. -Margins of resection are negative for carcinoma. -Lymphovascular invasion not identified. -Regional lymph nodes not submitted. -[id number]. 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 He denies pain in the chest wall [...] tablet Take 2 table (more content not included)...[facility]01-26-2023 Miscellaneous Notes* Telephone Encounter - Donavon Eastman - 04/02/2022 11:02 AM EST Patient did not show for appointment with , left message to call office put on recall Donavon Eastman' documented in this encounterUniversity Hospitals Samaritan Medical Center01-26-2023 Miscellaneous Notes* Telephone Encounter - America Schwartz RN - 04/02/2022 10:51 AM ESTSummary: Appointment Called patient and in regards to missed office visit with Dr. Wilburn, and immunotherapy appointment. No answer left messages for patient to call and reschedule. America Schwartz RN, BSN, OCN documented in this encounterUniversity Hospitals Samaritan Medical Center01-19-2023 NoteHNO ID: [id number] Author: Jerica Parsons, RT(R) Service: Radiology Author Type: Technologist Type: [...] Yanez DATE: March 26, 2022 TIME: 10:16 [facility]01-18-2023 Miscellaneous Notes* Telephone Encounter - Tania Parekh RN - 03/25/2022 8:57 AM EST Patient called stating his insurance is not approved for our office and that Dr. Wilburn needs to place a Referral for [place]. I reminded him that last week he called me telling me that his insurance is making him go to [facility] for the scans and not [facility] and do not understand how he could [...] insurance information.Tania Parekh RN documented in this encounterUniversity Hospitals Samaritan Medical Center01-16-2023 NoteHNO ID: [id number] Author: RT Citlaly(R) Service: ? Author Type: [...] 08:45 PATIENT DISCHARGED TO: Ambulatory patient, left [place] department area. A Diagnostic radioactive procedure has taken place, with no further precautions necessary other than routine body substance precautions. More information regarding radiation safety can be found using this link: [email or web address] [email or web address]%20Nuclear%20Medicine%20Procedures.pdf SIGNATURE: STEPHANIE Boucher) PATIENT NAME: Yefri Yanez DATE: March 23, 2022 TIME: 12:10 PM PAGER/CONTACT #:[facility]01-16-2023 History of Present illness Narrative* STEPHANIE Boucher) - 03/23/2022 12:10 PM EST RADIOLOGY SERVICE [...] 08:45 PATIENT DISCHARGED TO: Ambulatory patient, left [place] department area. A Diagnostic radioactive procedure has taken place, with no further precautions necessary other than routine body substance precautions. More information regarding radiation safety can be found usingthis link: [email or web address]-% 20Diagnostic%20Nuclear%20Medicine%20Procedures.pdf SIGNATURE: RT Citlaly(Damion) PATIENT NAME: Yefri Yanez DATE: March 23, 2022 TIME: 12:10 PM PAGER/CONTACT #: documented in this encounterUniversity Hospitals Samaritan Medical Center01-09-2023 Miscellaneous Notes* Telephone Encounter - Malachi Schafefr [facility] - 03/16/2022 11:27 AM EST Prior authorization was approved for Inlyta. Plan Name: [employer] [place] reference number: [id number] Approval Dates: 03/08/2022 - 03/13/2023 However, s/he is required to use [facility] to fill this medication. Will queue prescription(s) to go to designated specialty pharmacy. For reference, their pharmacy phone number is [phone]. No further action by [facility]. Radha Schaffer, PharmD, AAWAVP Clinical Pharmacist, Oncology [facility] P: ; F: Pool: P CC [facility] ONCOLOGY Pool #: [id number] Electronically signed by Malachi Schaffer [facility] at 03/16/2022 11:28 AM EST documented in this encounterUniversity Hospitals Samaritan Medical Center01-05-2023 Miscellaneous Notes* Telephone Encounter - America Schwartz RN - 03/12/2022 10:37 AM ESTSummary: Appointment LMOM with the appointment dates, times and location of upcoming bone scan and CT scans. Bone scan 03/23/22 at 830 am here at the [facility] hospital. CT scans at [place] [facility] 03/24/22 at 1pm. America Reed RN, BSN, OCN documented in this encounterUniversity Hospitals Samaritan Medical Center01-05-2023 [facility] History of Present illness Narrative* Adrienne Chung (Size Worker) - 03/12/2022 8:13 AM EST [facility] received prescription(s) for Inlyta from Dr. Wilburn's office. Benefits investigation was conducted, indicating that a prior authorization is required by patient's insurance plan with [employer]. Encounter will be updated once prior authorization has been submitted by [facility]. Adrienne Chung, Lead [facility], Oncology P: / F: documented in this encounterUniversity Hospitals Samaritan Medical Center01-04-2023 NoteHNO ID: [id number] Author: Haylee Wilburn MD Service: ? Author Type: Physician Type: Progress Notes Filed: 03/11/2022 4:16 PM Note Text: [facility] Progress Note SERVICE DATE: March 11, 2022 [...] started treatment with cabo + nivo on [facility] Trial on 08/08/2021 at [facility]. He has baseline HTN and developed worsening HTN after starting treatment. His cabo was held on 08/18/2021, resumed on 09/11/2021. The Nivo was held on 09/11/21 due to pneumonitis, and prednisone 60 mg daily was started and tapered off within about one month. Due to insurance change, he was taken off the trial and referred to [facility] to resume the treatment. He was scheduled to have nephrectomy on 11/04/21, but delayed due to his back pain. He underwent palliative XRT to L3-L5 (2,000 cGy in 5 fx), completed 12/26/21). He underwent da Farzad assisted robotic right radical nephrectomy at [facility] in [facility]. I do not have the official pathology report yet. We have made multiple requests to [facility] for the surgical pathology, to [...] Admin perflutren lipid microsphere (more content not included)...[facility] 03-11-2022 History of Present illness Narrative* Haylee Wilburn MD - 03/11/2022 1:25 PM EST Images from the original note were not included. [facility] Progress Note SERVICE DATE: March 11, 2022 [...] started treatment with cabo + nivo on [facility] Trial on 08/08/2021 at [facility]. He has baseline HTN and developed worsening HTN after starting treatment. His cabo was held on 08/18/2021, resumed on 09/11/2021. The Nivo was held on 09/11/21 due to pneumonitis, and prednisone 60 mg daily was started and tapered off within about one month. Due to insurance change, he was taken off the trial and referred to [facility] to resume the treatment. He was scheduled to have nephrectomy on 11/04/21, but delayed due to his back pain. He underwent palliative XRT to L3-L5 (2,000 cGy in 5 fx), completed 12/26/21). He underwent da Farzad assisted robotic right radical nephrectomy at [facility] in [facility]. I do not have the official pathology report yet. We have made multiple requests to [facility] for the surgical pathology, to no [...] underwent radical nephrectomy by Dr. Lopez at [facility], but I do not have the surgical [...] cc: Daksha Turner MD documented in this encounterUniversity Hospitals Samaritan Medical Center12-27-2022 NoteSend Summary: Discharge Summary Providers: Provider RoleProvider Name Aravind Kinsey Christopher Note Recipients: Aravind Hernandez MD Ranney, Christopher, MD - [phone] [] Discharge: Summary: Admission Date: .06-Feb-2022 08:57:00 [...] Data Referenced From Consult-DACR, Medicine 07-Feb-2022 16:43[facility]12-13-2022 NoteHNO ID: [id number] Author: Haylee Wilburn MD Service: ? Author Type: Physician Type: Progress Notes Filed: 02/17/2022 5:25 PM Note Text: [facility] Progress Note SERVICE DATE: February 17, 2022 [...] started treatment with cabo + nivo on [facility] Trial on 08/08/2021 at [facility]. He has baseline HTN and developed worsening HTN after starting treatment. His cabo was held on 08/18/2021, resumed on 09/11/2021. The Nivo was held on 09/11/21 due to pneumonitis, and prednisone 60 mg daily was started and tapered off within about one month. Due to insurance change, he was taken off the trial and referred to [facility] to resume the treatment. He was scheduled to have nephrectomy on 11/04/21, but delayed due to his back pain and palliative XRT to L3-L5 (2,000 cGy in 5 fx, completed 12/26/21). His back pain has resolved. He underwent da Farzad assisted robotic right radical nephrectomy at [facility] in [facility]. I do not have the [...] mg tablet lovastatin (MEVACOR) 20 mg tablet CANDELARIA ELLIPTA 100-62.5-25 mcg inhalation powder spironolactone (ALDACTONE) [...] headaches and light-headedness. Hematol (more content not included)...[facility]12-13-2022 History of Present illness Narrative* Haylee Wilburn MD - 02/17/2022 5:02 PM EST Images from the original note were not included. [facility] Progress Note SERVICE DATE: February 17, 2022 [...] started treatment with cabo + nivo on [facility] Trial on 08/08/2021 at [facility]. He has baseline HTN and developed worsening HTN after starting treatment. His cabo was held on 08/18/2021, resumed on 09/11/2021. The Nivo was held on 09/11/21 due to pneumonitis, and prednisone 60 mg daily was started and tapered off within about one month. Due to insurance change, he was taken off the trial and referred to [facility] to resume the treatment. He was scheduled to have nephrectomy on 11/04/21, but delayed due to his back pain and palliative XRT to L3-L5 (2,000 cGy in 5 fx, completed 12/26/21). His back pain has resolved. He underwent da Farzad assisted robotic right radical nephrectomy at [facility] in [facility]. I do not have the official [...] MD on 10/20/2021 PLAN: Old records from [facility] including surgical pathology and scans. Follow-up in 3 weeks regarding systemic therapy. Haylee Wilburn MD cc: Daksha Turner MD documented in this encounterUniversity Hospitals Samaritan Medical Center12-13-2022 Miscellaneous Notes* Telephone Encounter - [...] with Dr. Tello. Please call her at [phone]. documented in this encounterUniversity Hospitals Samaritan Medical Center12-12-2022 NoteHNO ID: [id number] Author: Sayra Tello MD Service: ? Author Type: Physician Type: Progress Notes Filed: 02/16/2022 11:29 AM Note Text: [facility] OUTPATIENT VISIT DATE 02/16/2022 OUTPATIENT VISIT TYPE NEW PATIENT PRIMARY CARE PHYSICIAN: Daksha Turner ([facility]) [address] [place] [address] HISTORY OF PRESENT ILLNESS: 57-year-old male CAD, [...] vaping sometimes tobacco. 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 PAST MEDICAL HISTORY Diagnosis Date Abdominal aortic [...] 1 tablet by kellie (more content not included)...[facility]12-12-2022 Instructions* Patient Instructions* Florian Mello RN - 02/16/2022 11:23 AM EST We will call you with the date and time of your test. Please report to the Cardiac Diagnostics Department: Located on the 2nd floor of the surgery center on [address] [place] [address] ([facility]). Manager Beauty and free parking is available. The test may be scheduled at a different location. If this happens the billet bed operator will notify you when calling to give you the date and time information. If you have any questions regarding the test or if you need to cancel / reschedule your appointment, please call [phone] as soon as possible. Please refer to [...] them, faxthem, drop them off, or use Vgift. If you have any questions before your next appointment please call Florian Montana RN @ [phone] ext [phone]. If Adrienne asked you to call her so she can help you with Tiny Pictureshart you can call her at [phone] ext [phone]. documented in this encounterUniversity Hospitals Samaritan Medical Center12-12-2022 History of Present illness Narrative* Sayra Tello MD - 02/16/2022 10:00 AM EST Images from the original note were not included. [facility] OUTPATIENT VISIT DATE 02/16/2022 OUTPATIENT VISIT TYPE NEW PATIENT PRIMARY CARE PHYSICIAN: Daksha Turner ([facility]) [address] [place] [address] HISTORY OF PRESENT ILLNESS: 57-year-old male CAD, [...] vaping sometimes tobacco. 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 PAST MEDICAL HISTORY Diagnosis Date Abdominal aortic [...] previous ECGs available Confirmed by YARY CLEMENT, [facility] ([id number]) on 01/20/2022 8:35:[address] Result Conclusion CT CHEST W IVCON Exam End: 11/20/2021 10:37 AM (Edited Result - FINAL) Addendum: * * *Final Report* * * * * * SEE BOTTOM OF REPORT FOR ADDENDED TEXT * * * DATE OF EXAM: Nov 20 2021 10:37AM [id number] [place] CHEST W IVCON / [...] vaping sometimes tobacco. 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 Plan: Reviewed all the prior reports including [...] diagnosis) Sayra Tello MD documented in this encounterUniversity Hospitals Samaritan Medical Center12-09-2022 NoteHNO ID: [id number] Author: Suman Peterson APRN.[employer] Service: ? Author Type: Nurse Practitioner Type: [...] or develops any concerning symptoms. Suman Peterson APRN.[facility]12-09-2022 Nurse Note* Tamiko Mason, RN - 02/13/2022 2:13 PM EST Images from the original note were not included. Radiation Therapy - Nursing Note (Follow-up) PATIENT NAME: Yefri Yanez PATIENT February 13, 2022 [facility] FACILITY/LOCATION: [facility] Reason for visit: Follow up. Subjective Data Patient reports 8/10 pain r/t recent right nephrectomy at on 02/06. Additional Data Do you want to see a Director Cpg? No Difficulty performing or completing routine daily [...] MOB 02/17/2022 11:30 AM Haylee Wilburn MD [facility] Courtney CLEMENT MOB SIGNED by: Tamiko Mason RN documented in this encounterUniversity Hospitals Samaritan Medical Center12-09-2022 History of Present illness Narrative* Suman Peterson, KEYUR.[employer] - 02/13/2022 2:02 PM EST Radiation Oncology - Follow Up Note PATIENT NAME: eYfri Yanez PATIENT DIAGNOSIS: Metastatic renal cell carcinoma [...] symptoms. Suman Peterson APRN.BEATRICE documented in this encounterUniversity Hospitals Samaritan Medical Center12-06-2022 Hospital Discharge instructions* Follow Up Appointment 1:Physician/Dept/Service: Dr. Lockett for Referral: post op follow upCall to Schedule in: 2 weeksPhone Number: [phone]: Please call to schedule appointment * Follow [...] [place] - NOTIFY YOUR PHYSICIAN OR RESIDENT CAMPUS REP. - Fever g reater than 101 F or 38.3 C, chills, nausea, vomiting, or feeling ill. - Inability to urinate. - Drainage of foul smelling fluid (pus) from the incision or drain sites. - Excruciating pain that is not controlled by prescription or nxvk-qav-vgqvebq medications. * Medication Information:- You were sent [...] appointments, please call our Main Office at [phone]. [facility]12-02-2022 NotePROCEDURE DETAILS Preoperative Diagnosis: renal cell carcinoma, congestive heart failure Postoperative Diagnosis: renal cell carcinoma, congestive heart failure Surgeon: Aravind Hernandez MD Resident/Fellow/Other Cable Installer: Clau Diallo MD Procedure: laparoscopic right radical [...] to the xiphoid process. A 12 mm academic affairs assistant port was placed a hands-breadth inferolateral [...] then closed in several layers. Initially, several vwnrks-al-nbncm sutures were placed with 0 Vicryl to reapproximate the bellies of the rectus abdominis. The anterior rectus fascia was then closed using running 0 PDS suture x2. Subcutaneous fat was then c (more content not included)...[facility]12-02-2022 Note History & Physical Reviewed: I have [...] the note. I personally evaluated the patient [id number] Electronic Signatures: Aravind Hernandez) (Signed 07-Feb-2022 09:05) Authored: Note Completion Co-Signer: History & Physical Reviewed, ERAS, Consent, Note Completion Clau Diallo (Resident)) (Signed 06-Feb-2022 07:12) Authored: History & Physical Reviewed, ERAS, Consent, Note Completion Last Updated: 07-Feb-2022 09:05 by Aravind Hernandez)[facility] 01-22-2022 Miscellaneous Notes* Telephone Encounter - Bairon Landers MA - 01/22/2022 1:00 PM EST Pt called in to request a refill on his torsemide to be sent to [facility] in [place], this request wassent to Kitty Carballo for approval and processing. Per Kitty this was refused due to we don't prescribe this medication, I called to advise Pt that he will need to contact the prescribing doctor to get a refill on this mediation. He verbalized understanding. documented in this encounterUniversity Hospitals Samaritan Medical Center11-14-2022 NoteHNO ID: [id number] Author: RT Kourtney(R) Service: Radiology Author Type: Technologist Type: Progress Notes Filed: 01/19/2022 11:03 AM Note Text: Summary: CHEST Radiology Service Progress Note PATIENT NAME: Yefri CASTILLON: [id number] DATE OF SERVICE: January 19, 2022 TIME: [...] BY: RT Kourtney(R) January 19, 2022 11:03 [facility]11-14-2022 History of Present illness Narrative* RT [...] 19, 2022 11:03 AM documented in this encounterUniversity Hospitals Samaritan Medical Center10-28-2022 NoteHNO ID: [id number] Author: Alfredo Xavier MD Service: Radiation Oncology Author Type: Physician Type: Progress Notes Filed: 01/07/2022 12:35 AM Note Text: YEFRI YANEZ [id number] 2022 [facility] Department of Radiation Oncology [facility] RADIATION ONCOLOGY: COMPLETION NOTE DATE OF SIMULATION: 12/12/2021 DATES OF TREATMENT: 12/22/2021 to 12/26/2021 TREATMENT MACHINE: [employer] TREATMENT AREA: L3-L5 , R CW DIAGNOSIS: 57 year old male with Malignant neoplasm of right kidney, except renal pelvis , histological stage [id number] and clinical stage IV CONCURRENT THERAPY: DELIVERED [...] PM Electronically Signed cc: Daksha Mills, [facility]10-28-2022 History of Present illness Narrative * Alfredo Xavier MD - 2022 12:00 AM EDT YEFRI YANEZ [id number] 2022 [facility] Department of Radiation Oncology [facility] RADIATION ONCOLOGY: COMPLETION NOTE DATE OF SIMULATION: 12/12/2021 DATES OF TREATMENT: 12/22/2021 to 12/26/2021 TREATMENT MACHINE: [employer] TREATMENT AREA: L3-L5 , R CW DIAGNOSIS: 57 year old male with Malignant neoplasm of right kidney, except renal pelvis , histological stage [id number] and clinical stage IV CONCURRENT THERAPY: DELIVERED [...] cc: Daksha Mills Michael documented in this encounterUniversity Hospitals Samaritan Medical Center10-25-2022 Miscellaneous Notes* Telephone Encounter - Adriana Hodge MD - 12/30/2021 1:53 PM EDT IC Adriana Hodge MD documented in this encounterUniversity Hospitals Samaritan Medical Center10-23-2022 Miscellaneous Notes* Telephone Encounter - [...] the anaestheic including but not limited to MD, CVA, DVT, and PE, and the risks [...] proceed. Adriana Hodge MD documented in this encounterUniversity Hospitals Samaritan Medical Center10-22-2022 Miscellaneous Notes* Telephone Encounter - Adriana Hodge MD - 12/27/2021 7:07 PM EDT I tried to call to move his care forward, but had to leave messages on both lines Adriana Hodge MD documented in this encounterUniversity Hospitals Samaritan Medical Center10-07-2022 NoteHNO ID: [id number] Author: Alfredo Xavier MD Service: Radiation Oncology Author Type: Physician Type: Progress Notes Filed: 12/17/2021 12:34 AM Note Text: YEFRI YANEZ [id number] 12/12/2021 [facility] Department of Radiation Oncology Treatment Planning [...] DVH. Electronically Signed Alfredo Xavier M.D. :19 [facility]10-07-2022 NoteHNO ID: [id number] Author: Alfredo Xavier MD Service: Radiation Oncology Author Type: Physician Type: Progress Notes Filed: 12/17/2021 12:34 AM Note Text: YEFRI YANEZ [id number] 12/12/2021 [facility] Department of Radiation Oncology [facility] RADIATION ONCOLOGY SIMULATION NOTE DATE OF SIMULATION: 12/12/2021 MACHINE: [employer] CT DIAGNOSIS: Malignant neoplasm of right kidney, [...] nursing. Electronically Signed Alfredo Xavier M.D. :06 [facility]10-07-2022 History of Present illness Narrative* Alfredo Xavier MD - 12/12/2021 12:00 AM EDT YEFRI YANEZ [id number] 12/12/2021 [facility] Department of Radiation Oncology Treatment Planning [...] Xavier M.D. :19 PM documented in this encounterUniversity Hospitals Samaritan Medical Center10-07-2022 History of Present illness Narrative* Alfredo Xavier MD - 12/12/2021 12:00 AM EDT YEFRI YANEZ [id number] 12/12/2021 [facility] Department of Radiation Oncology [facility] RADIATION ONCOLOGY SIMULATION NOTE DATE OF SIMULATION: 12/12/2021 MACHINE: [employer] CT DIAGNOSIS: Malignant neoplasm of right kidney, [...] per nursing. Electronically Signed Alfredo Xavier M.D. 10/11/98005:06 PM documented in this encounterUniversity Hospitals Samaritan Medical Center10-04-2022 NoteHNO ID: [id number] Author: Alfredo Xavier MD Service: ? Author [...] He was evaluated in the ER at [facility]. As part of his work-up a CT [...] Nondistended. Musculoskeletal: No e (more content not included)...[facility] 12-09-2021 Nurse Note* Tamiko Mason RN - 12/09/2021 10:18 AM EDT Images from the original note were not included. Radiation Therapy - Nursing Note (Consult) PATIENT NAME: Yefri Yanez PATIENT December 09, 2021 [facility] FACILITY/LOCATION: [facility] Chief Complaint: Metastatic Renal Cell Cancer Reason for visit: Consult. Referring physician: Internal provider Dr. Cox, Dr. [facility] Subjective Data: Patient denies pain at this time, he reports occasional pain in his lower back farnaz cramping sensation in the back of his thighs. He denies pain to the chest wall/rib. He reports that he was just discharged today from [facility]. He was admitted on Wednesday for shortness of breath. He reportedly received lasix and breathing treatments. He has an upcoming appt with his rouge presser, Dr. Acevedo at [facility]. Additional Data Do you want to see a Director Cpg? No Are you interested in information about fertility? No Sexual Activity: Male: N/A Stress Scale: On a scale of 0 to 10, what number best describes how much distress you have experienced in the past week?(0 being no distress and 10 being extreme distress) 2 Social work notified: no GENERAL INFORMATION: PREVIOUS CHEMOTHERAPY: Pt started chemotherapy with Cabometyx + Nivolumab as per [facility] Trial. Reportedly this was held d/t [...] oxygen in the home? No Employment: Retired [employer] ADVANCED DIRECTIVES: Does the patient have an [...] by: Tamiko Mason RN documented in this encounterUniversity Hospitals Samaritan Medical Center10-04-2022 History of Present illness Narrative* [...] on ice. He was evaluated in the [facility]. As part of his work-up a [...] by: Alfredo Xavier MD cc: Daksha Turner ([facility]) [address] [place], [place] [id number] documented in this encounterUniversity Hospitals Samaritan Medical Center10-04-2022 Telephone encounter Note * Telephone Encounter - Noreen Morejon - 12/09/2021 9:28 AM EDT Patient unable to contact No voicemail to return call Invalid Number Letter sent CALI May Classroom In[employer] [id number] [place] [address] [email or web address] Miscellaneous Notes* Telephone Encounter - Noreen Morejon - 12/09/2021 9:28 AM EDT Patient unable to contact No voicemail to return call Invalid Number Letter sent CALI May [facility] [address] [place] [address] [email or web address] documented in this [id number] Miscellaneous Notes* Telephone Encounter - Adriana Hodge [...] his Adriana Hodge MD documented in this encounterUniversity Hospitals Samaritan Medical Center09-19-2022 Miscellaneous Notes* Telephone Encounter - America Schwartz RN - 11/24/2021 12:23 PM EDTSummary: Requesting pain medication Patient is requesting patient medication for pain in bilateral legs, states that it is a 6/10 constant cramping. Informed patient that nurse will discuss with physician and return call. Patient verbalized understanding. America Schwartz RN, BSN, OCN documented in this encounterUniversity Hospitals Samaritan Medical Center09-15-2022 [facility] History of Present illness Narrative* Marcelino [...] 20, 2021 10:33 AM documented in this encounterUniversity Hospitals Samaritan Medical Center09-14-2022 NoteHNO ID: [id number] Author: Haylee Wilburn MD Service: ? Author Type: Physician Type: Progress Notes Filed: 11/19/2021 9:58 AM Note Text: [facility] Progress Note SERVICE DATE: November 19, 2021 [...] started treatment with cabo + nivo on [facility] Trial on 08/08/2021 at [facility]. He has baseline HTN and developed worsening HTN after starting treatment. His cabo was held on 08/18/2021, resumed on 09/11/2021. The Nivo was held on 09/11/21 due to pneumonitis, and prednisone 60 mg daily was started and tapered off within about one month. Due to insurance change, he was taken off the trial and referred to [facility] Oncology to resume the treatment. He [...] is scheduled to have radical nephrectomy at [facility] soon after the repeat CT. STAGE: Cancer [...] [facility]09-14-2022 NoteHNO ID: [id number] Author: Haylee Wilburn MD Service: ? Author Type: Physician Type: Progress Notes Filed: 11/25/2021 3:53 PM Note Text: Note opened in [facility]09-14-2022 NoteHNO ID: [id number] Author: Bernarda Kee MA Service: ? Author Type: Chain Sales Representative Type: Progress Notes Filed: 11/19/2021 9:58 AM Note Text: This note was created using [employer]. Subjective Yefri Yanez is a 56 year [...] from the original note were not included. [facility] Progress Note SERVICE DATE: November 19, 2021 [...] started treatment with cabo + nivo on [facility] Trial on 08/08/2021 at [facility]. He has baseline HTN and developed worsening HTN after starting treatment. His cabo was held on 08/18/2021, resumed on 09/11/2021. The Nivo was held on 09/11/21 due to pneumonitis, and prednisone 60 mg daily was started and tapered off within about one month. Due to insurance change, he was taken off the trial and referred to [facility] Oncology to resume the treatment. He [...] is scheduled to have radical nephrectomy at [facility] soon after the repeat CT. STAGE: Cancer [...] AM EDT This note was created using NTQ-Datater. Subjective Yefri Yanez is a 56 year [...] Exam Assessment and Plan documented in this encounterUniversity Hospitals Samaritan Medical Center09-01-2022 Miscellaneous Notes* Telephone Encounter - Tania Parekh RN - 11/06/2021 9:30 AM EDT Spoke with physician relations representative from [facility], she is asking that we reach out to patient to have them deliver his Cabometyx. She stated they have called him multiple times, yet he will not answer, and the one time he did answer she went over who she was and patient hung up on her.Tania Parekh, RN documented in this encounterUniversity Hospitals Samaritan Medical Center08-22-2022 Miscellaneous Notes* Telephone Encounter - Lisa Christensen PA-C - 10/27/2021 3:14 PM EDT Images from the original note were not included. Lalo Acevedo MD You; [facility] Rn Resource Pool 1 18 minutes ago [...] you for your help, Lisa Christensen PA-C [facility] documented in this encounterUniversity Hospitals Samaritan Medical Center08-22-2022 History and physical note * [...] 366 QTC Calculation (Bazett) 440 Calculated R Boomer 68 Calculated T Boomer 72 Impression ATRIAL FIBRILLATION NONSPECIFIC T WAVE [...] prior LISA Recent Results (from the past 43893 hour(s)) ECHO Collection Time: 09/04/21 11:03 AM [...] * * * Final * * * [facility] 08/05/2021 + + DIAGNOSTIC FINDINGS + [...] CAD (coronary artery disease) Assessment: Nonobstructive on [facility] 08/05/2021. METS: Climb a flight of [...] and warfarin clearance received from Dr. Acevedo, see TE in [facility] on 10/27/2021. Called pt and informed [...] Initiated: Orders placed by surgeon/surgical service in [facility]. Planned Anesthetic: Per anesthesia choice Instructions Given to Patient: Instructions located in the after visit summary. Patient given verbal and written preop instructions and voices comprehension and compliance. SIGNATURE: Lisa Christensen PA-C PATIENT NAME: Yefri Yanez DATE: October 24, 2021 TIME: 11:08 AM documented in this encounterUniversity Hospitals Samaritan Medical Center08-19-2022 Instructions* Patient Instructions* Lisa Christensen PA-C - 10/24/2021 11:20 AM EDT PATIENT PREOPERATIVE INSTRUCTIONS Adriana Hodge MD has scheduled you for your procedure at this surgery center: [facility] [place] Scheduling Office: [phone] --[address] [place] [address]. Please read below carefully for your personalized [...] NOT stop warfarin without consulting with your rouge presser or prescribing physician. - Stop Vitamin E, [...] call the Wednesday before. Your surgeon s billet bed operator will tell you what time to call the office. - If you have not reached the departmental billet bed operator by 5 P.M., call [phone] after 5 P.M. the day before your surgery. Please be aware that emergency situations arise, which may delay or change your surgical time. If this happens, we will notify you as soon as possible and regret any inconvenience. If you already have an Advance Directive, please fax a copy to [phone] or email to for it to be [...] chart that day. documented in this encounterCleveland [id number] [facility]08-16-2022 [facility]08-16-2022 [facility]08-15-2022 NoteHNO ID: [id number] Author: Haylee Wilburn MD Service: ? Author Type: Physician Type: Progress Notes Filed: 10/21/2021 9:38 AM Note Text: [facility] Oncology Consult Note SERVICE DATE: October 20, [...] started treatment with cabo + nivo on [facility] on 08/08/2021. He has baseline HTN and developed worsening HTN after starting treatment. His cabo was held on 08/18/2021, resumed on 09/11/2021. The Nivo was held on 09/11/21 due to pneumonitis, and prednisone 60 mg daily was started and tapered off one week ago. Due to insurance change, he was taken off the trial and referred to [facility] Oncology to resume the treatment. He [...] Negative. Respiratory: Negative. Cardiovascul (more content not included)...[facility]08-11-2022 Miscellaneous Notes* Telephone Encounter - Piper Fair - 10/16/2021 8:22 AM EDT Tayler from [facility] is requesting a referral for Dr. Haylee Wilburn, to have patient scheduled for Wednesday, 10/20. Patient has been identified by name and birthdate. Duration of symptoms: N/A Requesting response back: Call [phone] if needed. Piper Fair October 16, 2021 documented in this encounterUniversity Hospitals Samaritan Medical Center08-09-2022 Miscellaneous Notes* Telephone Encounter - Rahul Knight RN - 10/14/2021 5:09 PM EDT Pt called back to discuss his questions regarding insurance coverage for [facility]. Pt did not answer, sovoice message left with instructions to call back. Also attempted to call pt's , also with no answer. Voice message left for spouse as well. Fazal Knight RN, BSN documented in this encounterUniversity Hospitals Samaritan Medical Center08-09-2022 Miscellaneous Notes* Telephone Encounter - Lisa Stark - 10/14/2021 2:46 PM EDT Yefri Yanez('s) spouse is calling Kenneth Chester MD today regarding Patient Question Patient has been identified by name and birthdate. Would like to know why Yefri wasn't approved for research study Duration of symptoms: N/A Requesting response back: call at home [phone] (home) Lisa Stark October 14, 2021 documented in this encounterUniversity Hospitals Samaritan Medical Center08-04-2022 [facility]08-04-20[facility]08-04-2022 Nurse Note* Ariadne Wood RN - 10/09/2021 10:22 AM EDT Additional intake questions: Has the patient had fever, nausea, vomiting, diarrhea, constipation, fatigue for > 1 week? Yes, fatigue Does the patient have a decreased appetite? No Does patient want to see a Director Cpg? No (yes to any of above refer patient to schedulers for dietitian appointment) ) Does patient have any new or increased numbness or tingling of extremities? No Is patient interested in fertility information? No Does patient need any prescription refills? No Does patient have an advanced directive in place? No, Patient referred to Resource Center documented in this encounterUniversity Hospitals Samaritan Medical Center08-04-2022 History of Present illness Narrative* Godfrey Ohara APRN.BEATRICE - 10/09/2021 9:45 AM EDT Images from the original note were not included. [facility] Progress Note Oncology Clinic Patient name: Yefri [...] Abs Lymph 1.00 - 4.00 k/uL 2.33 Burt% % 4.8 Abs Burt <0.87 k/uL 0.35 Eosin% % 0.4 Abs [...] Started treatment with cabo + nivo on [facility] 0 on 08/08/2021. He has baseline HTN and [...] out of network to receive care at [facility] - Patient is currently on warfarin for his atrial fibrillation, which is contraindicated per the clinical trial - Patient withdrew consent from [facility] and all follow up related activities d/t [...] which included preparing to see the patient, [id number] patient care, completing clinical documentation, obtaining and/or [...] Oncology Advanced Practice Provider documented in this encounterUniversity Hospitals Samaritan Medical Center08-04-2022 History of Present illness Narrative* Rahul Knight RN - 10/09/2021 9:20 AM EDT IRB#: [id number], [facility]# [facility], Cyto-KIK; TRIAL (CYTO reductive surgery in [...] Anxiety r/t procedure 07/15/2021 08/06/21 Potassium Chloride* ([id number]) 20 MEQ PACKET Active 20 MEQ PO Hypokalemia 201807/22/2021 Take 1 tablet by mouth once daily. HTN 201707/22/2021 Take 1 capsule by mouth once daily. HTN 201707/22/2021 Take 1 tablet by mouth once daily. [...] Fazal Knight RN, BSN documented in this encounterUniversity Hospitals [facility]07-25-2022 Miscellaneous Notes* Telephone Encounter - Sheela Chisholm RN - 09/29/2021 2:05 PM EDT Called patient for follow up from recent hospital discharge but no answer, message left on voicemail including resource nurse phone number. documented in this encounterUniversity Hospitals [facility]ar[facility]07-25-2022 [facility] History of Present illness Narrative* Safia Carr [facility] - [...] Nephro for plan on Prednisone taper. Called [facility] pharmacy and ensured that Rx for [...] take his insurance card. Pt to try [facility] instead of [facility]. Patient Workup: HF medication classes present on medication list: Beta bettey, Diuretic and Aldosterone antagonist New HF medication(s) added this admission: Yes, Spironolactone (Patient to be counseled on new medications if full medication review completed) Last documented LVEF: LV Ejection Fraction (%) Date Value 09/26/2021 40 Last documented weight: Last Wt 09/26/21 122.3 kg (269 lb 9.6 oz) Patient was sent a message via Vgift including the link to the [facility] Heart Failure education video: Yes Initial contact with patient post discharge, spoke to patient and spouse, Miya,. Patient identified by name and . Summary: -Pt discharged from [facility] on 09/26/21. -Follow up appointment on 10/20/21. -Medication review done Partial medication review completed - per patient preference -Admitted for acute systolic heart failure Patient was contacted by telephone, identified for pharmacist care from discharge call list, and gave consent to manage medications related to transitional care management pursuant to the consult agreement with the [facility] [place]. Patient Concerns: Review and discussion of medications [...] subcutaneously q 12 HR. Re-initiated, Sent to [facility], Pt has filled and is taking as prescribed. PharmD called [facility] and verified that pt filled Rx [...] tablets by mouth once daily. Sent to [facility], Pt has filled and is taking as prescribed. Pt's spouse will call [facility] to determine the plan on this taper [...] tablets by mouth once daily. Sent to [facility], Pt has filled and is taking [...] (40mg) by mouth once daily. Sent to [facility], Pt has filled and is taking as prescribed. PharmD called [facility] and verified that Torsemide Rx was filled as generic (pharmacy filled as generic) warfarin (COUMADIN) 5 mg tablet Take 1 tablet by mouth once daily. Sent to [facility], Pt has filled and is taking as prescribed. INR Date Value Ref Range Status 09/26/2021 1.3 0.9 - 1.3 Final Comment: Vitamin K Antagonist (VKA) Therapeutic Range: INR 2 to 3 (Target INR of 2.5) Note: For patients treated with VKA drugs, such as warfarin, the [employer] 2012 Guideline recommends [...] Chest 2012, 141:7S-47S Caitie RA, et al. [facility] 2017, 70: 252-289 Pt had appt with PCP to check INR on 09/29/21 (INR was 1.9) and will have f/u INR on 10/03/21 with PCP. Pt's spouse states that new dose is Warfarin 6mg daily. Preferred pharmacy: [id number] [place] [address] - [address] [facility] - [phone] [facility] [address] [address] [facility] [phone] [facility] [address] [facility] [address] [id number] [place] [address] [address] [facility]. - [phone] [place] [address] [address] [facility] [address] Estimated Creatinine Clearance: 104.4 mL/min (based on [...] Date(s) Administered COVID-19 vaccine, age 12+ yr (PFIZER-BIONTECH - PURPLE TOP) 05/25/2020 06/15/2020 01/21/2021 Influenza Seasonal Inj Age 3+ 12/06/2013 12/06/2013 Tdap (Age 7+) 07/25/2018 Additional follow up: Appointments for Next 60 Days Date Time Provider Location Dept Phone 10/06/2021 12:30 PM SURGICAL REGISTRATION 1 10/09/2021 8:45 AM LAB [facility] CA 1 Mn CA Bldg [phone] 10/09/2021 9:45 AM GODFREY CLAYTON Mn CA Bldg [phone] 10/09/2021 9:45 AM GODFREY OHARA Mn CA Bldg [phone] 10/09/2021 10:15 AM CHAIR 8 /[facility]/[facility] Mn CA Bldg [phone] 10/20/2021 11:30 AM LISA HANSEN Mn J Bldg [phone] 10/23/2021 8:40 AM MRI 6 RADIO MAIN Q (I-STAT/1.5T/3T) Mn Q Bldg [phone] 10/23/2021 9:[address] PREP MAIN CA Mn CA Bldg [phone] 10/23/2021 10:[address] MAIN CA Mn CA Bldg [phone] 10/23/2021 11:30 AM LAB [facility] CA 1 Mn CA Bldg [phone] 10/23/2021 1:30 PM KENNETH CHESTER Mn CA Bldg [phone] 10/23/2021 1:30 PM GODFREY CLAYTON Mn CA Bldg [phone] 10/27/2021 11:30 AM PACC MAIN 2 Mn A Bldg [phone] 10/27/2021 12:30 PM ADMIT INTERVIEW A12 PSSC A Bldg 10/27/2021 1:00 PM LAB A15 MAIN Mn A [facility] [phone] 10/27/2021 1:30 PM EKG17 MAIN Mn A [facility] [phone] 11/01/2021 11:00 AM LAB COVID WSTR [facility] [phone] Interventions Made: Patient education/Medication counseling, Adherence counseling and Medication access issue resolved Pharmacist Recommendations Made Lab request/Therapeutic drug monitoring Care Coordination: None at this time Time spent on patient: 60-75 minutes Safia Carr RPh September 29, 2021 7:19 AM documented in this encounterUniversity Hospitals [facility]07-22-2022 [facility]-20[facility] History of Present illness Narrative* Riccardo Hatfield PA-C - 09/22/2021 12:00 PM EDT Images from the original note were not included. [facility] [place] Miah Espitia Department of Cardiovascular Medicine SECTION OF CLINICAL CARDIOLOGY OUTPATIENT VISIT DATE September 22, 2021 OUTPATIENT VISIT TYPE ESTABLISHED PRIMARY CARE PHYSICIAN: Daksha Turner ([facility]) [address] [place] [address] REFERRING PHYSICIAN: Angela Khna [address] [facility] [address] CHIEF COMPLAINT: Established Pt Hospital Follow Up HISTORY OF PRESENT ILLNESS: Mr. Yanez is a 56 year old male who presents today for a cardiovascular medicine follow-up visit. Pt is an established pt of Dr. Acevedo Pt has a past medical history of: 1. 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 Will be discharged on increased diuretic [...] UNDETERMINED ABNORMAL ECG Confirmed by MARILIA LITTLE ([id number]), research editor CORBIN CANADA ([id number]) on 09/03/2021 11:29:20 AM Complete Results Last CT Result Conclusion CT CHEST W IVCON PE Exam End: 09/02/2021 4:24 PM (Final result) Impression: IMPRESSION: 1. No CT evidence of pulmonary embolism. 2. Little change in CT appearance of the chest since the exam dated 08/17/2021. Again demonstrated is an expansile soft tissue mass of the right anterolateral chest wall consistent with osseous metastasis. 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: PSCAbdirahman Transcribe Date/Time: Sep 02 2021 4:28P Dictated [...] with more than 50% of the total [id number] time of the visit in counseling / coordination of care. CONTACT INFORMATION: Riccardo Hatfield PA-C September 22, 2021 documented in this encounterUniversity Hospitals [facility]ar[facility] Medical Center07-15-2022 Miscellaneous Notes* Telephone Encounter - Rahul Knight RN - 09/19/2021 9:31 AM EDT IRB#: [id number], [facility]# [facility] [id number], [...] Pt verbalized understanding. Sent a follow up Vgift message to the pt.Also reached out to Dr. Chester to inform him of new symptoms, recommendations made to pt, and to inquire whether further action is needed. Will call pt back with any new instructions from Dr. Chester. Fazal Knight RN, BSN documented in this encounterUniversity Hospitals [facility] Center07-12-2022 Miscellaneous Notes* Telephone Encounter - [...] symptoms. [place] Sharma, RN documented in this encounterUniversity Hospitals [facility] Center07-12-2022 Miscellaneous Notes* Telephone Encounter - Rahul Knight RN - 09/16/2021 9:45 AM EDT IRB#: [id number], [facility]# [facility] 1820, Cyto-KIK; TRIAL (CYTO reductive surgery in [...] Fazal Knight RN, BSN documented in this encounterUniversity Hospitals Samaritan Medical Center07-07-2022 [facility]07-07-2022 [facility]07-07-2022 History of Present illness Narrative* Kenneth Chester MD - 09/11/2021 2:03 PM EDT Images from the original note were not included. [facility] Progress Note Oncology Clinic Patient name: Yefri Yanez : 1965 Date of Service: September 11, 2021 Note copied from August 19, 2021 but boucher elements reviewed, confirmed, and/or updated by me (Kenneth Chester MD) on September 11, 2021. [facility]: Started cabo and nivo on [...] Abs Lymph 1.00 - 4.00 k/uL 1.12 Burt% % 8.1 Abs Burt <0.87 k/uL 0.53 Eosin% % 0.5 Abs [...] Started treatment with cabo + nivo on [facility] 1820 on 08/08/2021. He has baseline HTN [...] note. Kenneth Chester MD documented in this encounterUniversity Hospitals [facility] Center07-07-2022 Nurse Note* Ariadne Wood RN - 09/11/2021 1:29 PM EDT Additional intake questions: Has the patient had fever, nausea, vomiting, diarrhea, constipation, fatigue for > 1 week? Yes, fatigue and SOB Does the patient have a decreased appetite? No Does patient want to see a Director Cpg? No (yes to any of above refer patient to schedulers for dietitian appointment) ) Does patient have any new or increased numbness or tingling of extremities? No Is patient interested in fertility information? No Does patient need any prescription refills? No Does patient have an advanced directive in place? No, Patient referred to Resource Center documented in this encounterUniversity Hospitals [facility]07-07-2022 History of Present illness Narrative* Godfrey Clayton RN - 09/11/2021 1:17 PM EDT IRB#: [id number], [facility]# [facility]20, Cyto-KIK; TRIAL (CYTO reductive surgery in [...] chloride (KLOR-CON) 20 mEq packet Potassium Chloride* ([id number]) 20 MEQ PACKET Active 20 MEQ PO [...] information Godfrey Clayton RN documented in this encounterUniversity Hospitals [facility]aritan Medical Center07-01-2022 Miscellaneous Notes* Telephone Encounter - Marysol Lane RN - 09/05/2021 4:07 PM EDT Called Yefri for more information regarding message received. Call back number given. * Telephone Encounter - Rakel Monge - 09/05/2021 2:16 PM EDT Yefri Yanez is calling Kenneth Chester MD today regarding Claims Adjuster Crop - Other States that when patient was in the hospital Dr Khan prescribed Lobenos and states that is very costly. Asking for a generic or something different that is affordable. Patient has been identified by name and birthdate. Duration of symptoms: N/A Requesting response back: call at home [phone] (home) [phone] (cell) Rakel Monge September 05, 2021 documented in this encounterUniversity Hospitals [facility]ar[facility] Medical Center06-29-2022 [facility]-29-2022 [facility]-28-20[facility]-28-[facility] History of Present illness Narrative* Godfrey Clayton RN - 09/02/2021 4:55 PM EDT IRB#: [id number], [facility], Cy[facility]-KIK; TRIAL (CYTO reductive surgery in Kidney cancer plus Immunotherapy (nivolumab) and targeted Kinase inhibition (cabozantinib) [facility]. Patient [...] r/t nivo, likelyr/t heart failure, Action:referral to Tr[facility] clinic, CXR, monitor Outcome:Changed to Grade 3 [...] Outcome:ongoing Godfrey Clayton RN documented in this encounterUniversity Hospitals Samaritan Medical Center06-28-2022 Nurse Note* Warren Garvin LPN - 09/02/2021 4:41 PM EDT [facility] Emergency Response Team Date of the Event: September 02, 2021 Time of the Event:1640 Select Floor / Area: [address] Reason/Chief Complaint for Emergency Call (Check all that apply): Respiratory: New onset difficulty breathing History of Events Prior to DANIEL Activation and any treatment administered prior to DANIEL Team arrival? PT presented to [facility] clinic with SOB for last week. Pt placed on 2L O2, also CT scan done in Q building before DANIEL called. Individuals involved in [...] No Does patient want to see a Director Cpg? No (yes to any of above refer patient to schedulers for dietitian appointment) ) Does patient have any new or increased numbness or tingling of extremities? No Is patient interested in fertility information? No Does patient need any prescription refills? No Does patient have an advanced directive in place? No, Patient refused referral to Social Work or Resource Center documented in this encounterUniversity Hospitals [facility] Center06-28-2022 [facility]-28-2022 [facility]-28-2022 History of Present illness Narrative* Sybil [...] 2021 TIME: 3:24 PM documented in this encounterUniversity Hospitals Samaritan Medical Center06-28-2022 History of Present illness Narrative* Daksha Melo PA-C - 09/02/2021 2:05 PM EDT [facility] Rapid Access Clinic (TRA) REQUESTING [...] No rash. LABS / TESTING while in [facility] clinic: Component Latest Ref Rng & Units [...] Abs Lymph 1.00 - 4.00 k/uL 1.42 Burt% % 6.4 Abs Burt <0.87 k/uL 0.42 Eosin% % 0.3 Abs [...] 02, 2021 2:05 PM documented in this encounterUniversity Hospitals [facility] Medical Center06-28-2022 History of Present illness Narrative* RT Syed(R) [...] 02, 2021 1:56 PM documented in this encounterUniversity Hospitals [facility]ar[facility] Medical Center06-28-2022 [facility]06-27-2022 Miscellaneous Notes* Telephone Encounter - Adriana [...] the anaestheic including but not limited to MD, CVA, DVT, and PE, and the risks [...] proceed. Adriana Hodge MD documented in this encounterUniversity Hospitals [facility] Center06-22-2022 [facility] History of Present illness Narrative* Godfrey Clayton RN - 08/19/2021 2:17 PM EDT IRB#: [id number], [facility]# [facility] 1820, Cyto-KIK; TRIAL (CYTO reductive surgery in [...] chloride (KLOR-CON) 20 mEq packet Potassium Chloride* ([id number]) 20 MEQ PACKET Active 20 MEQ PO [...] information Godfrey Clayton RN documented in this encounterUniversity Hospitals [facility] Medical Center06-14-2022 [facility]-14-2022 [facility]-14-2022 Nurse Note* Ariadne Wood RN - 08/19/2021 11:33 AM EDT Reviewed and confirmed with patient that there were no changes in the the nursing assessment and vitals that were completed on August 19, 2021 during previous provider appointment. Ariadne Wood RN documented in this encounterUniversity Hospitals [facility]ar[facility] Medical Center06-14-2022 History of Present illness Narrative* Godfrey Ohara APRN.DIVISION OFFICER [employer] DEPARTMENT - 08/19/2021 11:30 AM EDT Images from the original note were not included. [facility] Progress Note Oncology Clinic Patient name: Yefri Yanez : 1965 Date of Service: August 19, 2021 PCP: Jillian Maurer DO Referring Provider: Adriana Hodge MD. SUBJECTIVE CHIEF COMPLAINT: [facility] CURRENT THERAPY: Started cabo and nivo on [...] Patient presents today for C1D15 visit of [facility] 1820. Since last visit his BP has been elevated, his cabo was stopped on 08/18/21 and he saw cardiology prior to his oncology appointment today. 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 [facility] [place] Miah Espitia Department of Cardiovascular Medicine SECTION OF CLINICAL CARDIOLOGY OUTPATIENT VISIT DATE August 19, 2021 OUTPATIENT VISIT TYPE ESTABLISHED PRIMARY CARE PHYSICIAN: Daksha Turner (Sarah) [address] [place] [address] REFERRING PHYSICIAN: Lalo Acevedo [address] [facility] [address] CHIEF COMPLAINT: No chief complaint on file. HISTORY OF PRESENT ILLNESS: Mr. Yanez is a 56 year old male who presents today for a cardiovascular medicine follow-up visit. Patient was last time seen in the clinic on July 31, 2021. 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: DANITZA Transcribe Date/Time: Aug 17 2021 7:12P [...] INFORMATION: Lalo Acevedo M.D, PhD, FRCPC, FACC Search Marketing Specialist at [facility] Associate Pipe Processor Internal Medicine Residency Pipe Processorelementary education teacher Education Internal Medicine Residency Pipe Processor of Consult Service Pipe Processor for Elective Students/Residents at [facility] Cardio-Oncology Center Miah Espitia Department of Cardiovascular Medicine [facility] [place] [facility] Desk J[address] [place] [address] Office Office Appointments: [phone] This medical note has been dictated using voice recognition system. Grammatical and/or syntax errors may be present and therefore the note should be interpreted accordingly. Should you have any questions and/or concerns, please do not hesitate to contact my office. documented in this encounterUniversity Hospitals Samaritan Medical Center06-13-2022 Miscellaneous Notes* Telephone Encounter - Radha Ceballos RN - 08/18/2021 2:51 PM EDT Good Afternoon Mr. Yanez, Thank you for sending us in your blood pressure readings. Dr. Acevedo will address these readings tomorrow at your appointment. Looking forward to seeing you then! I hope you have a wonderful day! JOHN Garcia documented in this encounterUniversity Hospitals [facility] Center06-13-2022 Miscellaneous Notes* Telephone Encounter - Godfrey Clayton RN - 08/18/2021 10:25 AM EDT [facility]B#: [id number][facility], Cyto-KIK; TRIAL (CYTO reductive surgery in [...] Outcome:Resolved Godfrey Clayton RN documented in this encounterUniversity Hospitals Samaritan Medical Center06-13-2022 Miscellaneous Notes* Telephone Encounter - Godfrey Ohara APRN.CNP - 08/18/2021 9:43 AM EDT This encounter was opened in error. @[email or web address]@ documented in this encounterUniversity Hospitals [facility] Center06-12-2022 [facility]06-12-2022 [facility]06-08-2022 Miscellaneous Notes * Telephone Encounter - Godfrey Clayton RN - 08/13/2021 2:55 PM EDT [facility]B#: [id number][facility] 0[facility], Cyto-KIK; TRIAL (CYTO reductive surgery in Kidney cancer plus Immunotherapy (nivolumab) and targeted Kinase inhibition (cabozantinib) Called patient to review recent blood pressure readings. Patient stated his blood pressure yesterday and today have been between 130s-140s/80s. Instructed patient to still follow up with his rouge presser with previous readings. Patient states of feeling well with no symptoms. Instructed patient to call with any new or worsening symptoms. Patient verbalized understanding. Godfrey Clayton RN documented in this encounterUniversity Hospitals [facility] Center06-07-2022 Miscellaneous Notes* Telephone Encounter - Godfrey Clayton RN - 08/12/2021 2:40 PM EDT IRB#: [id number], [facility]# [facility] 1820, Cyto-KIK; TRIAL (CYTO reductive surgery in Kidney cancer plus Immunotherapy (nivolumab) and targeted Kinase inhibition (cabozantinib) Patient called to inform nurse of recent blood pressure readings. Patient reported that his blood pressure has been running between 140-150s/100s since last 08/09/2021. After consulting , instructed patient to follow up with his rouge presser to adjust blood pressure medications. This nurse updated rouge presser, Dr. Acevedo. Patient denied having any chest pain, shortness of breath, dizziness, or heart palpations. Instructed patient to be evaluated by local ER if blood pressure continues to stay elevated or becomes symptomatic. Instructed patient to call for any new or worsening symptoms. Patient verbalized understanding. Godfrey Clayton RN documented in this encounterUniversity Hospitals Samar[facility] Center06-07-2022 Miscellaneous Notes* Telephone Encounter - [...] EDT August 12, 2021 Patient Contact Number: [phone] Patient last seen within the last year: [...] days. Yes Wojciech Menendez documented in this encounterUniversity Hospitals [facility] Center06-06-2022 Miscellaneous Notes* Telephone Encounter - Hermila Ruiz RN - 08/11/2021 12:32 PM EDT IRB#: [id number], [facility]# [facility] 1820, Cyto-KIK; TRIAL (CYTO reductive surgery in Kidney cancer plus Immunotherapy (nivolumab) and targeted Kinase inhibition (cabozantinib) Called pt again to follow up. No answer. Left VM with contact info. Hermila Ruiz RN documented in this encounterUniversity Hospitals [facility] Center06-06-2022 Miscellaneous Notes* Telephone Encounter - Hermila Ruiz RN - 08/11/2021 10:09 AM EDT IRB#: [id number], [facility]# [facility] 1820, Cyto-KIK; TRIAL (CYTO reductive surgery in Kidney cancer plus Immunotherapy (nivolumab) and targeted Kinase inhibition (cabozantinib) Cycle: 1 Week: 1 Phase: 2 Cohort: 2 Called pt to follow up on start of treatment with clinical trial. No answer. Left VM with contact info. Hermila Ruiz RN documented in this encounterUniversity Hospitals [facility] Center06-03-2022 [facility]06-03-2022 [facility]06-03-2022 [facility]CleThe [facility]06-03-2022 History of Present illness Narrative* Godfrey Ohara APRN.DIVISION OFFICER [employer] DEPARTMENT - 08/08/2021 9:45 AM EDT Images from the original note were not included. [facility] Progress Note Oncology Clinic Patient name: Yefri Yanez : 1965 Date of Service: August 08, 2021 PCP: Jillian Maurer DO Referring Provider: Adriana Hodge MD. SUBJECTIVE CHIEF COMPLAINT: [facility] HPI: This is a 56 year old [...] Patient presents today for C1D1 visit of [facility] 1820 with cabo and nivo. 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 Tobacco: Active cigar smoker MEDICATIONS: [...] Abs Lymph 1.00 - 4.00 k/uL 1.61 Burt% % 6.6 Abs Burt <0.87 k/uL 0.40 Eosin% % 0.7 Abs [...] start treatment with cabo + nivo on [facility] 1820 on 07/24/2021 - Start C1D1 of cabo + nivo today (08/08/2021) per [facility] 1820 - RTC per protocol HTN and [...] which included preparing to see the patient, [id number] patient care, completing clinical documentation, obtaining and/or [...] Ohara APRN.BEATRICE Research SCOTT documented in this encounterUniversity Hospitals Samaritan Medical Center06-03-2022 History of Present illness Narrative* Godfrey Clayton RN - 08/08/2021 9:45 AM EDT IRB#: [id number][facility], Cyto-KIK; TRIAL (CYTO reductive surgery [...] chloride (KLOR-CON) 20 mEq packet Potassium Chloride* ([id number]) 20 MEQ PACKET Active 20 MEQ PO Hypokalemia 2018 amLODIPine (NORVASC) 5 mg tablet Take 1 tablet by mouth once daily. HTN 2018 lovastatin (MEVACOR) 20 mg tablet Take 1 tablet by mouth daily with dinner. HLD 2019 MULTIVITAMIN TAB Take one(1) tablet daily. General Health 2017 Prednisone 20mg Take 2 tablets by mouth [...] Navigator Godfrey Clayton RN documented in this encounterUniversity Hospitals Samaritan Medical Center06-03-2022 Nurse Note* Ariadne Wood RN - 08/08/2021 9:20 AM EDT Additional intake questions: Has the patient had fever, nausea, vomiting, diarrhea, constipation, fatigue for > 1 week? No Does the patient have a decreased appetite? No Does patient want to see a Director Cpg? No (yes to any of above refer patient to schedulers for dietitian appointment) ) Does patient have any new or increased numbness or tingling of extremities? No Is patient interested in fertility information? No Does patient need any prescription refills? No Does patient have an advanced directive in place? No, Patient referred to [facility] documented in this encounterUniversity Hospitals Samaritan Medical Center06-01-2022 [facility] History of Present illness Narrative* Godfrey Ohara APRN.CNP - 08/06/2021 3:37 PM EDT RECIST TUMOR MEASUREMENTS IRB #: [id number] Image Modality: CT Image Date: CT Chest from 07/21/2021. CT A/P from 08/06/2021 Date of Baseline Scan: CT Chest from 07/21/2021. CT A/P from 08/06/2021 Date of Comparison Scan: NA Research Nurse/Pager: Godfrey Ohara APRN.[employer] [phone] Baseline Measurement Target Lesion Site Measurements: Baseline [...] reviewed and approved by Dr. Kenneth Ohara APRN.[employer] documented in this encounterUniversity Hospitals Samaritan Medical Center06-01-2022 [facility] History of Present illness Narrative* Godfrey Ohara APRN.CNP - 08/06/2021 9:45 AM EDT IRB#: [id number], [facility]# [facility] 1820, Cyto-KIK; TRIAL (CYTO reductive surgery in Kidney cancer plus Immunotherapy (nivolumab) and targeted Kinase inhibition (cabozantinib) Phase: 2 Cohort: 2 Pt presents for Screening Visit of IRB# [id number] . Informed Consent signed on 07/15/2021, prior to anystudy related procedures being performed that are not SOC. PE completed by Godfrey Ohara APRN.[employer]. Was PE completed by a Fellow No [...] chloride (KLOR-CON) 20 mEq packet Potassium Chloride* ([id number]) 20 MEQ PACKET Active 20 MEQ PO [...] RTC on 08/07/2021 for Day 1 of [facility] 1820 Study. Patient expresses understanding to call with any questions or concerns in the interim and understanding of all instructions provided. Patient confirmed to have contact information for Research Nurse and Dr. Zhao, along with the 24 hour On- Call number for the On-Call Oncology Fellow ([phone]). Godfrey Ohara APRN.CNP * Godfrey Ohara APRN.CNP - 08/06/2021 9:45 AM EDT Images from the original note were not included. [facility] Progress Note Oncology Clinic Patient name: Yefri CASTILLON: [id number] : 1965 Date of Service: August 06, 2021 PCP: Jillian Maurer DO Referring Provider: Adriana Hodge MD. SUBJECTIVE CHIEF COMPLAINT: [facility] HPI: This is a 56 year old [...] presents today for repeat screening visit of [facility] 1819 with cabo and nivo. 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 He presents today for repeat screening visit [facility] . - RTC on C1D1 [...] which included preparing to see the patient, [id number] patient care, completing clinical documentation, obtaining and/or [...] Ohara APRN.BEATRICE Research SCOTT documented in this encounterUniversity Hospitals Samaritan Medical Center06-01-2022 History of Present illness Narrative* Godfrey Clayton RN - 08/06/2021 9:35 AM EDT IRB#: [id number][facility], Cyto-KIK; TRIAL (CYTO reductive surgery [...] note. Godfrey Clayton RN documented in this encounterUniversity Hospitals Samaritan Medical Center05-29-2022 Miscellaneous Notes* Telephone Encounter - [...] In Department of CARDIOLOGY. documented in this encounterUniversity Hospitals Samaritan Medical Center05-26-2022 [facility] History of Present illness Narrative* Lalo Acevedo MD - 07/31/2021 1:20 PM EDT Images from the original note were not included. [facility] [place] Miah Espitia Department of Cardiovascular Medicine SECTION OF CLINICAL CARDIOLOGY OUTPATIENT VISIT DATE July 31, 2021 OUTPATIENT VISIT TYPE ESTABLISHED PRIMARY CARE PHYSICIAN: Daksha Turner ([facility]) [address] [place] [address] REFERRING PHYSICIAN: Lalo Acevedo [address] [facility] [address] CHIEF COMPLAINT: No chief complaint on file. HISTORY OF PRESENT ILLNESS: Mr. Yanez is a 56 year old male who presents today for a cardiovascular medicine follow-up visit. The first time he spoke with the patient was back on July 22, 2021. Patient has oncological and pathologically confirmed clear-cell renal carcinoma. Currently patient is enrolled in clinical trial, see [facility] 182, with Mati [planning C1 D1 on [...] that he is at least operating at [place] [employer] 2 in terms of functional [...] short axis) * Boucher Images stored in SecureLink Chest: * Lesion a - Bone, 9.4 cm x 5.7 cm mass in the anterolateral right chest wall arising from the right sixth rib, larger since the prior chest CT from 06/19/2021, (Series 4, Image 102) NON-TARGET LESIONS: No 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: PSCB Transcribe Date/Time: Jul 21 2021 10:55A [...] forward. At this time he is at [place] [employer] class II in functional status [...] INFORMATION: Lalo Acevedo M.D, PhD, FRCPC, FACC Search Marketing Specialist at [facility] Associate Pipe Processor Internal Medicine Residency Pipe Processorelementary education teacher Education Internal Medicine Residency Pipe Processor of Consult Service Cardio-Oncology Center Miah Espitia Department of Cardiovascular Medicine [facility] [place] [facility] Desk [place] [address] Office Office Appointments: [phone] This medical note has been dictated using voice recognition system. Grammatical and/or syntax errors may be present and therefore the note should be interpreted accordingly. Should you have any questions and/or concerns, please do not hesitate to contact my office. documented in this encounterUniversity Hospitals Samaritan Medical Center05-25-2022 Miscellaneous Notes* Telephone Encounter - [...] In Department of CARDIOLOGY. documented in this encounterUniversity Hospitals Samaritan Medical Center05-24-2022 Miscellaneous Notes* Telephone Encounter - Godfrey Clayton RN - 07/29/2021 4:39 PM EDT IRB#: [id number], [facility]# [facility] 1820, Cyto-KIK; TRIAL (CYTO reductive surgery in [...] understanding. Godfrey Clayton RN documented in this encounterUniversity Hospitals Samaritan Medical Center05-20-2022 Miscellaneous Notes* Telephone Encounter - Godfrey Clayton RN - 07/25/2021 2:58 PM EDT IRB#: [id number], [facility]# [facility] 1820, Cyto-KIK; TRIAL (CYTO reductive surgery in [...] understanding. Godfrey Clayton RN documented in this encounterUniversity Hospitals Samaritan Medical Center05-20-2022 [facility]-20-2022 History of Present illness Narrative* Rahul Lozadalouis [facility] - 07/25/2021 10:36 AM EDTSummary: RECIST 1.1 Abstract for Addendum RESEARCH IRB #: [id number] TUMOR METRICS: RECIST 1.1 Baseline Measurement Research Nurse/Pager: America Clayton [phone] Date of Baseline Scan: 06/27/2021 Date of Comparison Scan: NA Addendum Please see Abstract in EPIC Dated: NA Rahul Sabrina [id number] documented in this encounterUniversity Hospitals Samaritan Medical Center05-19-2022 Instructions* Patient Instructions* Godfrey Ohara APRN.CNP - 07/24/2021 3:33 PM EDT Please schedule as a first time treatment visit type. documented in this encounterUniversity Hospitals Samaritan Medical Center05-19-2022 Miscellaneous Notes* Telephone Encounter - Godfrey Ohara APRN.CNP - 07/24/2021 3:29 PM EDT Called and spoke with patient. Nivolumab has been approved. Awaiting approval and delivery of cabo per SOC. Will schedule him to see myself on 08/01/2021 for C1D1 of cabo and nivo. Godfrey Ohara APRN.CNP Research SCOTT documented in this encounterUniversity Hospitals Samaritan Medical Center05-19-2022 [facility]05-19-2022 [facility]05-19-2022 History of Present illness Narrative* Godfrey Ohara APRN.CNP - 07/24/2021 9:56 AM EDT Images from the original note were not included. [facility] Progress Note Oncology Clinic Patient name: Yefri Yanez : 1965 Date of Service: July 24, 2021 PCP: Jillian Maurer DO Referring Provider: Adriana Hodge MD. SUBJECTIVE CHIEF COMPLAINT: [facility] HPI: This is a 56 year old [...] HISTORY: Patient presents today for C1D1 of [facility] 1819 with cabo and nivo. 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 However, [...] which included preparing to see the patient, [id number] patient care, completing clinical documentation, obtaining and/or [...] Ohara APRN.BEATRICE Research SCOTT documented in this encounterUniversity Hospitals Samaritan Medical Center05-19-2022 History of Present illness Narrative* Godfrey Clayton RN - 07/24/2021 9:45 AM EDT IRB#: [id number][facility], Cyto-KIK; TRIAL (CYTO reductive surgery in [...] chloride (KLOR-CON) 20 mEq packet Potassium Chloride* ([id number]) 20 MEQ PACKET Active 20 MEQ PO [...] Navigator Godfrey Clayton RN documented in this encounterUniversity Hospitals Samaritan Medical Center05-18-2022 Miscellaneous Notes* Telephone Encounter - [...] understanding. Godfrey Clayton RN documented in this encounterUniversity Hospitals Samaritan Medical Center05-17-2022 [facility]-17-20[facility] History of Present illness Narrative* Lalo Acevedo MD - 07/22/2021 1:51 PM EDT [facility] [place] Department of Cardiovascular Medicine TELEPHONE VISIT PROGRESS [...] patient is enrolling in a clinical trial, [facility] 1820, with lucrecia (planning C1D1 on 07/24/21). [...] minutes Lalo Acevedo MD documented in this encounterUniversity Hospitals Samaritan Medical Center05-16-2022 Miscellaneous Notes* Telephone Encounter - [...] information for future reference. documented in this encounterUniversity Hospitals Samaritan Medical Center05-16-2022 [facility]05-16-20[facility]-16-2022 History of Present illness Narrative* Elba [...] 2021 TIME: 9:09 AM documented in this encounterUniversity Hospitals Samaritan Medical Center05-16-2022 [facility]05-16-2022 History of Present illness Narrative* [...] 2021 TIME: 9:05 AM documented in this encounterUniversity Hospitals Samaritan Medical Center05-16-2022 History of Present illness Narrative* [...] INDEX Godfrey Clayton RN documented in this encounterUniversity Hospitals Samaritan Medical Center05-13-2022 [facility]05-13-2022 History of Present illness Narrative* Godfrey Ohara APRN.CNP - 07/18/2021 12:46 PM EDT IRB#: [id number], [facility] Phase: II Cohort: 2 Encounter for Eligibility of IRB# [id number] . Informed Consent signed on 07/14/2021, prior to any study related procedures being performed that are not SOC. PE completed by Godfrey Ohara APRN.CNP. Was PE completed by a Fellow No [...] Cardiovascular disorders including: Congestive heart failure (CHF): [place] [employer] (NYHA) Class III (moderate) or Class IV (severe) at the time of screening. Patient denied on 07/15/2021. Not found on examination by KEYUR Mann.DIV[employer] DEPARTMENT. Concurrent uncontrolled hypertension defined as sustained BP [...] on 07/15/2021 24. Active central nervous system (RECORD PRESSMAN) metastases Patient denied on 07/15/2021. No metastases [...] chloride (KLOR-CON) 20 mEq packet Potassium Chloride* ([id number]) 20 MEQ PACKET Active 20 MEQ PO [...] RTC on 07/24/2021 for Day 1 of [facility] 1820 Study. Godfrey Ohara APRN.CNP documented in this encounterUniversity Hospitals Samaritan Medical Center05-10-2022 [facility]05[facility]10-2022 [facility]-10-20[facility]-10-20[facility]-09-[facility]-09-20[facility] History of Present illness Narrative* Rahul [...] life expectancy as discussed with Dr. Kenneth Chseter MD MD-- . All study related questions have been [...] APRN, [place] Devine, RN * Godfrey Ohara APRN.BEATRICE - 07/14/2021 3:55 PM EDT Saw patient today for RN consent visit for [facility] 1820. Wrote for Ativan 1 mg as needed prior to MRI Kidney and MRI brain. Godfrey Ohara APRN.BEATRICE Research SCOTT documented in this encounterUniversity Hospitals Samaritan Medical Center05-09-2022 Nurse Note* Ariadne Wood RN - 07/14/2021 2:41 PM EDT Additional intake questions: Has the patient had fever, nausea, vomiting, diarrhea, constipation, fatigue for > 1 week? Yes, fatigue Does the patient have a decreased appetite? No Does patient want to see a Director Cpg? No (yes to any of above refer patient to schedulers for dietitian appointment) ) Does patient have any new or increased numbness or tingling of extremities? No Is patient interested in fertility information? No Does patient need any prescription refills? No Does patient have an advanced directive in place? No, Patient referred to [facility] documented in this encounterUniversity Hospitals Samaritan Medical Center05-06-2022 Miscellaneous Notes* Telephone Encounter - [...] understanding. Godfrey Clayton RN documented in this encounterUniversity Hospitals Samaritan Medical Center05-06-2022 Miscellaneous Notes* Telephone Encounter - [...] understanding. Godfrey Clayton RN documented in this encounterUniversity Hospitals Samaritan Medical Center05-03-2022 [facility]05-03-2022 History of Present illness Narrative* Godfrey Clayton RN - 07/08/2021 3:51 PM EDT Informed Consent Presentation IRB# [id number] Title: [facility] 1820, Cyto-KIK; TRIAL (CYTO reductive surgery in Kidney cancer plus Immunotherapy (nivolumab) and targeted Kinase inhibition (cabozantinib) Consent expiration date 01/10/2022 Spoke with patient at the request of Dr. Kenneth Chester MD MD-- . Treatment plan, including all testing, potential [...] 1500 Godfrey Clayton RN documented in this encounterUniversity Hospitals Samaritan Medical Center05-02-2022 Miscellaneous Notes* Telephone Encounter - [...] understanding. Godfrey Clayton RN documented in this encounterUniversity Hospitals Samaritan Medical Center04-27-2022 [facility]04-27-20[facility] History of Present illness Narrative* Kenneth Chester MD - 07/02/2021 12:00 PM EDT Images from the original note were not included. 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 Kenneth Chester MD MA Associate Staff [facility] July 02, 2021 CC: Adriana Hodge MD documented in this encounterUniversity Hospitals Samaritan Medical Center04-27-2022 Nurse Note* Ariadne Wood RN - 07/02/2021 11:52 AM EDT Additional intake questions: Has the patient had fever, nausea, vomiting, diarrhea, constipation, fatigue for > 1 week? No Does the patient have a decreased appetite? No Does patient want to see a Director Cpg? No (yes to any of above refer patient to schedulers for dietitian appointment) ) Does patient have any new or increased numbness or tingling of extremities? No Is patient interested in fertility information? No Does patient need any prescription refills? No Does patient have an advanced directive in place? No, Patient referred to [facility] documented in this encounterUniversity Hospitals Samaritan Medical Center04-26-2022 [facility]04-25-2022 [facility]04-25-[facility] History of Present illness Narrative* RT [...] be found usingthis link: [email or web address] SIGNATURE: STEPHANIE Cochran) PATIENT NAME: Yefri Yanez DATE: June 30, 2021 TIME: 7:45 AM PAGER/CONTACT #: [phone] documented in this encounterUniversity Hospitals Samaritan Medical Center04-22-2022 [facility]04-22-2022 History of Present illness Narrative* STEPHANIE [...] DEPARTMENT: CT; Exam(s) Completed: Abdomen/Pelvis SIGNATURE: RT Kailee(Damion) PATIENT NAME: Yefri Yanez DATE: June 27, 2021 TIME: 1:57 PM documented in this encounterUniversity Hospitals Samaritan Medical Center04-19-2022 Miscellaneous Notes* Telephone Encounter - John Gtz MD - 06/24/2021 8:32 AM EDT .. RADIOLOGIST REQUEST / APPROVAL FORM STAFF RADIOLOGIST:Tj/Manjit PROCEDURE TO BE DONE UNDER: CT PROCEDURE REQUESTED: CORE Requested PROCEDURE: Approved TIME SLOT NEEDED: 1 Hour NOTES: 93 x 62 mm lytic right chest wall soft tissue mass SPECIAL LABS/ PROCESSING: Routine Pre-procedure labs: CBC: not needed Platelets 268 K on 06/20/2021 INR: ordered COVID: not needed SIR Bleeding risk category for this procedure: low risk. Reference from [facility] County Director Welfare: [email or web address] STAFF SIGNATURE: John Gtz MD DATE: June 24, 2021 TIME: 8:32 AM * Telephone Encounter - Yandy Toni RN - 06/23/2021 4:44 PM EDT BX. COORDINATOR INFORMATION LAB RESULTS: No results found for: INR No results found for: APTT Platelet Count (k/uL) Date Value 06/20/2021 268 11/06/2019 288 Current Outpatient Medications Medication Sig potassium chloride (KLOR-CON) 20 mEq packet Potassium Chloride* ([id number]) 20 MEQ PACKET Active 20 MEQ PO [...] 4:44 PM * Telephone Encounter - Irma Motaaaron - 06/23/2021 4:26 PM EDT RADIOLOGY CALL CENTER INTAKE LAB RN: IRMA EVANS EXT: [id number] DATE: 06/23/2021 TIME: 4:27PM TRACKING #. [id number] REQUESTING PERSON: LILIAM PHONE/PAGER: [phone] REQUESTING STAFF: Adriana Hodge MD PHONE/PAGER: [phone] SPECIFICS OF THE REQUEST: (Please be as [...] EVALUATE APPROPRIATENESS/FEASIBILITY OF THE REQUEST) IMAGING: OUTSIDE [facility] Films: Where is study now: UPLOADED IN PATIENTS CHART (If the imaging was obtained outside the [facility] system, then it needs to be submitted for review prior to approval.) Note to all persons requesting biopsies: All biopsy requests will be scheduled as quickly as possible, based on the clinical urgency, availability of appointment times, the need to hold anti-thrombolytic therapy (aspirin, blood thinners) and the patient s schedule, including the need for an available helper driver. If a percutaneous biopsy or drainage is not felt to be safe or an alternative method for establishing a diagnosis is possible, this will be discussed directly with the requesting physician. 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 [employer] Residence:[place] Review of Systems: No CP, No SOB, no CVA, no TIA, No MD No claudication Skin: Rash: denies Lump or mass: denies HEENT: Problems with hearing: denies Double vision or blurred vision: denies Difficulty swallowing: denies Neck: Mass or LN enlargement: denies Pain: denies Chest: SOB: denies Cough: denies Coughing blood: denies Hx pneumonia: denies CVS: Dyspnea on exertion: denies Chest pain: denies Palpitations: denies Hx heart disease, valvular disease: denies Hx MD: denies GI: Nausea or vomiting: denies Abd [...] which included preparing to see the patient, [id number] patient care, completing clinical documentation and counseling [...] 23, 2021 11:36 AM documented in this encounterUniversity Hospitals Samaritan Medical Center04-18-2022 Miscellaneous Notes* Telephone Encounter - Dawit Urbina MD - 06/23/2021 8:48 AM EDT Spoke with Patient ID by Relayed to patient CBC and CMP without concern. Patient aware to follow up with Dr. Hodge at 11:00 AM today. Dawit Urbina MD documented in this encounterUniversity Hospitals Samaritan Medical Center04-15-2022 [facility] History of Past illness Narrative* Problem Noted Date Resolved Date Essential hypertension, benign 06/30/2004 0 03/12/2008 ROUTINE MEDICAL EXAM 06/30/2004 11/26/2014 CHEST PAIN NOS 06/30/2004 11/26/2014 documented as of this encounter (statuses as of 06/23/2021) [facility]04-25-2005 History of Past illness Narrative* Problem Noted Date Resolved Date Essential hypertension, benign 06/30/2004 0 03/12/2008 ROUTINE MEDICAL EXAM 06/30/2004 11/26/2014 CHEST PAIN NOS 06/30/2004 11/26/2014 documented as of this encounter (statuses as of 06/23/2021) [facility]04-25-2005 History of Past illness Narrative* Problem Noted Date Resolved Date Essential hypertension, benign 06/30/2004 0 03/12/2008 ROUTINE MEDICAL EXAM 06/30/2004 11/26/2014 CHEST PAIN NOS 06/30/2004 11/26/2014 documented as of this encounter (statuses as of 06/24/2021) [address] History of Past illness Narrative* Problem Noted Date Resolved Date Essential hypertension, benign 06/30/2004 0 03/12/2008 ROUTINE MEDICAL EXAM 06/30/2004 11/26/2014 CHEST PAIN NOS 06/30/2004 11/26/2014 documented as of this encounter (statuses as of 06/26/2021) [address] History of Past illness Narrative* Problem Noted Date Resolved Date Essential hypertension, benign 06/30/2004 0 03/12/2008 ROUTINE MEDICAL EXAM 06/30/2004 11/26/2014 CHEST PAIN NOS 06/30/2004 11/26/2014 documented as of this encounter (statuses as of 06/28/2021) [address] History of Past illness Narrative* Problem Noted Date Resolved Date Essential hypertension, benign 06/30/2004 0 03/12/2008 ROUTINE MEDICAL EXAM 06/30/2004 11/26/2014 CHEST PAIN NOS 06/30/2004 11/26/2014 documented as of this encounter (statuses as of 06/28/2021) [address] History of Past illness Narrative* Problem Noted Date Resolved Date Essential hypertension, benign 06/30/2004 0 03/12/2008 ROUTINE MEDICAL EXAM 06/30/2004 11/26/2014 CHEST PAIN NOS 06/30/2004 11/26/2014 documented as of this encounter (statuses as of 07/01/2021) [address] History of Past illness Narrative* Problem Noted Date Resolved Date Essential hypertension, benign 06/30/2004 0 03/12/2008 ROUTINE MEDICAL EXAM 06/30/2004 11/26/2014 CHEST PAIN NOS 06/30/2004 11/26/2014 documented as of this encounter (statuses as of 07/01/2021) [address] History of Past illness Narrative* Problem Noted Date Resolved Date Essential hypertension, benign 06/30/2004 0 03/12/2008 ROUTINE MEDICAL EXAM 06/30/2004 11/26/2014 CHEST PAIN NOS 06/30/2004 11/26/2014 documented as of this encounter (statuses as of 07/04/2021) [address] History of Past illness Narrative* Problem Noted Date Resolved Date Essential hypertension, benign 06/30/2004 0 03/12/2008 ROUTINE MEDICAL EXAM 06/30/2004 11/26/2014 CHEST PAIN NOS 06/30/2004 11/26/2014 documented as of this encounter (statuses as of 07/07/2021) [address] History of Past illness Narrative* Problem Noted Date Resolved Date Essential hypertension, benign 06/30/2004 0 03/12/2008 ROUTINE MEDICAL EXAM 06/30/2004 11/26/2014 CHEST PAIN NOS 06/30/2004 11/26/2014 documented as of this encounter (statuses as of 07/08/2021) [address] History of Past illness Narrative* Problem Noted Date Resolved Date Essential hypertension, benign 06/30/2004 0 03/12/2008 ROUTINE MEDICAL EXAM 06/30/2004 11/26/2014 CHEST PAIN NOS 06/30/2004 11/26/2014 documented as of this encounter (statuses as of 07/11/2021) [address] History of Past illness Narrative* Problem Noted Date Resolved Date Essential hypertension, benign 06/30/2004 0 03/12/2008 ROUTINE MEDICAL EXAM 06/30/2004 11/26/2014 CHEST PAIN NOS 06/30/2004 11/26/2014 documented as of this encounter (statuses as of 07/11/2021) [address] History of Past illness Narrative* Problem Noted Date Resolved Date Essential hypertension, benign 06/30/2004 0 03/12/2008 ROUTINE MEDICAL EXAM 06/30/2004 11/26/2014 CHEST PAIN NOS 06/30/2004 11/26/2014 documented as of this encounter (statuses as of 07/11/2021) [address] History of Past illness Narrative* Problem Noted Date Resolved Date Essential hypertension, benign 06/30/2004 0 03/12/2008 ROUTINE MEDICAL EXAM 06/30/2004 11/26/2014 CHEST PAIN NOS 06/30/2004 11/26/2014 documented as of this encounter (statuses as of 07/14/2021) [address] History of Past illness Narrative* Problem Noted Date Resolved Date Essential hypertension, benign 06/30/2004 0 03/12/2008 ROUTINE MEDICAL EXAM 06/30/2004 11/26/2014 CHEST PAIN NOS 06/30/2004 11/26/2014 documented as of this encounter (statuses as of 07/15/2021) [address] History of Past illness Narrative* Problem Noted Date Resolved Date Essential hypertension, benign 06/30/2004 0 03/12/2008 ROUTINE MEDICAL EXAM 06/30/2004 11/26/2014 CHEST PAIN NOS 06/30/2004 11/26/2014 documented as of this encounter (statuses as of 07/15/2021) [address] History of Past illness Narrative* Problem Noted Date Resolved Date Essential hypertension, benign 06/30/2004 0 03/12/2008 ROUTINE MEDICAL EXAM 06/30/2004 11/26/2014 CHEST PAIN NOS 06/30/2004 11/26/2014 documented as of this encounter (statuses as of 07/21/2021) [address] History of Past illness Narrative* Problem Noted Date Resolved Date Essential hypertension, benign 06/30/2004 0 03/12/2008 ROUTINE MEDICAL EXAM 06/30/2004 11/26/2014 CHEST PAIN NOS 06/30/2004 11/26/2014 documented as of this encounter (statuses as of 07/21/2021) [address] History of Past illness Narrative* Problem Noted Date Resolved Date Essential hypertension, benign 06/30/2004 0 03/12/2008 ROUTINE MEDICAL EXAM 06/30/2004 11/26/2014 CHEST PAIN NOS 06/30/2004 11/26/2014 documented as of this encounter (statuses as of 07/21/2021) [address] History of Past illness Narrative* Problem Noted Date Resolved Date Essential hypertension, benign 06/30/2004 0 03/12/2008 ROUTINE MEDICAL EXAM 06/30/2004 11/26/2014 CHEST PAIN NOS 06/30/2004 11/26/2014 documented as of this encounter (statuses as of 07/22/2021) [address] History of Past illness Narrative* Problem Noted Date Resolved Date Essential hypertension, benign 06/30/2004 0 03/12/2008 ROUTINE MEDICAL EXAM 06/30/2004 11/26/2014 CHEST PAIN NOS 06/30/2004 11/26/2014 documented as of this encounter (statuses as of 07/22/2021) [address] History of Past illness Narrative* Problem Noted Date Resolved Date Essential hypertension, benign 06/30/2004 0 03/12/2008 ROUTINE MEDICAL EXAM 06/30/2004 11/26/2014 CHEST PAIN NOS 06/30/2004 11/26/2014 documented as of this encounter (statuses as of 07/23/2021) [address] History of Past illness Narrative* Problem Noted Date Resolved Date Essential hypertension, benign 06/30/2004 0 03/12/2008 ROUTINE MEDICAL EXAM 06/30/2004 11/26/2014 CHEST PAIN NOS 06/30/2004 11/26/2014 documented as of this encounter (statuses as of 07/24/2021) [address] History of Past illness Narrative* Problem Noted Date Resolved Date Essential hypertension, benign 06/30/2004 0 03/12/2008 ROUTINE MEDICAL EXAM 06/30/2004 11/26/2014 CHEST PAIN NOS 06/30/2004 11/26/2014 documented as of this encounter (statuses as of 07/24/2021) [address] History of Past illness Narrative* Problem Noted Date Resolved Date Essential hypertension, benign 06/30/2004 0 03/12/2008 ROUTINE MEDICAL EXAM 06/30/2004 11/26/2014 CHEST PAIN NOS 06/30/2004 11/26/2014 documented as of this encounter (statuses as of 07/25/2021) [address]25-2005 History of Past illness Narrative* Problem Noted Date Resolved Date Essential hypertension, benign 06/30/2004 0 03/12/2008 ROUTINE MEDICAL EXAM 06/30/2004 11/26/2014 CHEST PAIN NOS 06/30/2004 11/26/2014 documented as of this encounter (statuses as of 07/25/2021) [address] History of Past illness Narrative* Problem Noted Date Resolved Date Essential hypertension, benign 06/30/2004 0 03/12/2008 ROUTINE MEDICAL EXAM 06/30/2004 11/26/2014 CHEST PAIN NOS 06/30/2004 11/26/2014 documented as of this encounter (statuses as of 07/28/2021) [address]25-2005 History of Past illness Narrative* Problem Noted Date Resolved Date Essential hypertension, benign 06/30/2004 0 03/12/2008 ROUTINE MEDICAL EXAM 06/30/2004 11/26/2014 CHEST PAIN NOS 06/30/2004 11/26/2014 documented as of this encounter (statuses as of 07/29/2021) [address] History of Past illness Narrative* Problem Noted Date Resolved Date Essential hypertension, benign 06/30/2004 0 03/12/2008 ROUTINE MEDICAL EXAM 06/30/2004 11/26/2014 CHEST PAIN NOS 06/30/2004 11/26/2014 documented as of this encounter (statuses as of 07/29/2021) [address] History of Past illness Narrative* Problem Noted Date Resolved Date Essential hypertension, benign 06/30/2004 0 03/12/2008 ROUTINE MEDICAL EXAM 06/30/2004 11/26/2014 CHEST PAIN NOS 06/30/2004 11/26/2014 documented as of this encounter (statuses as of 07/30/2021) [address] History of Past illness Narrative* Problem Noted Date Resolved Date Essential hypertension, benign 06/30/2004 0 03/12/2008 ROUTINE MEDICAL EXAM 06/30/2004 11/26/2014 CHEST PAIN NOS 06/30/2004 11/26/2014 documented as of this encounter (statuses as of 07/31/2021) [address] History of Past illness Narrative* Problem Noted Date Resolved Date Essential hypertension, benign 06/30/2004 0 03/12/2008 ROUTINE MEDICAL EXAM 06/30/2004 11/26/2014 CHEST PAIN NOS 06/30/2004 11/26/2014 documented as of this encounter (statuses as of 08/03/2021) [address]25-2005 History of Past illness Narrative* Problem Noted Date Resolved Date Essential hypertension, benign 06/30/2004 0 03/12/2008 ROUTINE MEDICAL EXAM 06/30/2004 11/26/2014 CHEST PAIN NOS 06/30/2004 11/26/2014 documented as of this encounter (statuses as of 08/06/2021) [address] History of Past illness Narrative* Problem Noted Date Resolved Date Essential hypertension, benign 06/30/2004 0 03/12/2008 ROUTINE MEDICAL EXAM 06/30/2004 11/26/2014 CHEST PAIN NOS 06/30/2004 11/26/2014 documented as of this encounter (statuses as of 08/06/2021) [address] History of Past illness Narrative* Problem Noted Date Resolved Date Essential hypertension, benign 06/30/2004 0 03/12/2008 ROUTINE MEDICAL EXAM 06/30/2004 11/26/2014 CHEST PAIN NOS 06/30/2004 11/26/2014 documented as of this encounter (statuses as of 08/07/2021) [address] History of Past illness Narrative* Problem Noted Date Resolved Date Essential hypertension, benign 06/30/2004 0 03/12/2008 ROUTINE MEDICAL EXAM 06/30/2004 11/26/2014 CHEST PAIN NOS 06/30/2004 11/26/2014 documented as of this encounter (statuses as of 08/08/2021) [address] History of Past illness Narrative* Problem Noted Date Resolved Date Essential hypertension, benign 06/30/2004 0 03/12/2008 ROUTINE MEDICAL EXAM 06/30/2004 11/26/2014 CHEST PAIN NOS 06/30/2004 11/26/2014 documented as of this encounter (statuses as of 08/08/2021) [address] History of Past illness Narrative* Problem Noted Date Resolved Date Essential hypertension, benign 06/30/2004 0 03/12/2008 ROUTINE MEDICAL EXAM 06/30/2004 11/26/2014 CHEST PAIN NOS 06/30/2004 11/26/2014 documented as of this encounter (statuses as of 08/08/2021) [address] History of Past illness Narrative* Problem Noted Date Resolved Date Essential hypertension, benign 06/30/2004 0 03/12/2008 ROUTINE MEDICAL EXAM 06/30/2004 11/26/2014 CHEST PAIN NOS 06/30/2004 11/26/2014 documented as of this encounter (statuses as of 08/08/2021) [address] History of Past illness Narrative* Problem Noted Date Resolved Date Essential hypertension, benign 06/30/2004 0 03/12/2008 ROUTINE MEDICAL EXAM 06/30/2004 11/26/2014 CHEST PAIN NOS 06/30/2004 11/26/2014 documented as of this encounter (statuses as of 08/11/2021) [address] History of Past illness Narrative* Problem Noted Date Resolved Date Essential hypertension, benign 06/30/2004 0 03/12/2008 ROUTINE MEDICAL EXAM 06/30/2004 11/26/2014 CHEST PAIN NOS 06/30/2004 11/26/2014 documented as of this encounter (statuses as of 08/12/2021) [address] History of Past illness Narrative* Problem Noted Date Resolved Date Essential hypertension, benign 06/30/2004 0 03/12/2008 ROUTINE MEDICAL EXAM 06/30/2004 11/26/2014 CHEST PAIN NOS 06/30/2004 11/26/2014 documented as of this encounter (statuses as of 08/12/2021) [address] History of Past illness Narrative* Problem Noted Date Resolved Date Essential hypertension, benign 06/30/2004 0 03/12/2008 ROUTINE MEDICAL EXAM 06/30/2004 11/26/2014 CHEST PAIN NOS 06/30/2004 11/26/2014 documented as of this encounter (statuses as of 08/13/2021) [address] History of Past illness Narrative* Problem Noted Date Resolved Date Essential hypertension, benign 06/30/2004 0 03/12/2008 ROUTINE MEDICAL EXAM 06/30/2004 11/26/2014 CHEST PAIN NOS 06/30/2004 11/26/2014 documented as of this encounter (statuses as of 08/18/2021) [address]25-2005 History of Past illness Narrative* Problem Noted Date Resolved Date Essential hypertension, benign 06/30/2004 0 03/12/2008 ROUTINE MEDICAL EXAM 06/30/2004 11/26/2014 CHEST PAIN NOS 06/30/2004 11/26/2014 documented as of this encounter (statuses as of 08/18/2021) [address]25-2005 History of Past illness Narrative* Problem Noted Date Resolved Date Essential hypertension, benign 06/30/2004 0 03/12/2008 ROUTINE MEDICAL EXAM 06/30/2004 11/26/2014 CHEST PAIN NOS 06/30/2004 11/26/2014 documented as of this encounter (statuses as of 08/18/2021) [address]25-2005 History of Past illness Narrative* Problem Noted Date Resolved Date Essential hypertension, benign 06/30/2004 0 03/12/2008 ROUTINE MEDICAL EXAM 06/30/2004 11/26/2014 CHEST PAIN NOS 06/30/2004 11/26/2014 documented as of this encounter (statuses as of 08/19/2021) [address] History of Past illness Narrative* Problem Noted Date Resolved Date Essential hypertension, benign 06/30/2004 0 03/12/2008 ROUTINE MEDICAL EXAM 06/30/2004 11/26/2014 CHEST PAIN NOS 06/30/2004 11/26/2014 documented as of this encounter (statuses as of 08/19/2021) [address] History of Past illness Narrative* Problem Noted Date Resolved Date Essential hypertension, benign 06/30/2004 0 03/12/2008 ROUTINE MEDICAL EXAM 06/30/2004 11/26/2014 CHEST PAIN NOS 06/30/2004 11/26/2014 documented as of this encounter (statuses as of 08/20/2021) [address] History of Past illness Narrative* Problem Noted Date Resolved Date Essential hypertension, benign 06/30/2004 0 03/12/2008 ROUTINE MEDICAL EXAM 06/30/2004 11/26/2014 CHEST PAIN NOS 06/30/2004 11/26/2014 documented as of this encounter (statuses as of 08/21/2021) [address] History of Past illness Narrative* Problem Noted Date Resolved Date Essential hypertension, benign 06/30/2004 0 03/12/2008 ROUTINE MEDICAL EXAM 06/30/2004 11/26/2014 CHEST PAIN NOS 06/30/2004 11/26/2014 documented as of this encounter (statuses as of 08/27/2021) [address] History of Past illness Narrative* Problem Noted Date Resolved Date Essential hypertension, benign 06/30/2004 0 03/12/2008 ROUTINE MEDICAL EXAM 06/30/2004 11/26/2014 CHEST PAIN NOS 06/30/2004 11/26/2014 documented as of this encounter (statuses as of 08/28/2021) [address] History of Past illness Narrative* Problem Noted Date Resolved Date Essential hypertension, benign 06/30/2004 0 03/12/2008 ROUTINE MEDICAL EXAM 06/30/2004 11/26/2014 CHEST PAIN NOS 06/30/2004 11/26/2014 documented as of this encounter (statuses as of 09/01/2021) [address]25-2005 History of Past illness Narrative* Problem Noted Date Resolved Date Essential hypertension, benign 06/30/2004 0 03/12/2008 ROUTINE MEDICAL EXAM 06/30/2004 11/26/2014 CHEST PAIN NOS 06/30/2004 11/26/2014 documented as of this encounter (statuses as of 09/02/2021) [address]2005 History of Past illness Narrative* Problem Noted Date Resolved Date Essential hypertension, benign 06/30/2004 0 03/12/2008 ROUTINE MEDICAL EXAM 06/30/2004 11/26/2014 CHEST PAIN NOS 06/30/2004 11/26/2014 documented as of this encounter (statuses as of 09/03/2021) [address] History of Past illness Narrative* Problem Noted Date Resolved Date Essential hypertension, benign 06/30/2004 0 03/12/2008 ROUTINE MEDICAL EXAM 06/30/2004 11/26/2014 CHEST PAIN NOS 06/30/2004 11/26/2014 documented as of this encounter (statuses as of 09/03/2021) [address] History of Past illness Narrative* Problem Noted Date Resolved Date Essential hypertension, benign 06/30/2004 0 03/12/2008 ROUTINE MEDICAL EXAM 06/30/2004 11/26/2014 CHEST PAIN NOS 06/30/2004 11/26/2014 documented as of this encounter (statuses as of 09/03/2021) [address]2005 History of Past illness Narrative* Problem Noted Date Resolved Date Essential hypertension, benign 06/30/2004 0 03/12/2008 ROUTINE MEDICAL EXAM 06/30/2004 11/26/2014 CHEST PAIN NOS 06/30/2004 11/26/2014 documented as of this encounter (statuses as of 09/11/2021) [address]2005 History of Past illness Narrative* Problem Noted Date Resolved Date Essential hypertension, benign 06/30/2004 0 03/12/2008 ROUTINE MEDICAL EXAM 06/30/2004 11/26/2014 CHEST PAIN NOS 06/30/2004 11/26/2014 documented as of this encounter (statuses as of 09/11/2021) [address]2005 History of Past illness Narrative* Problem Noted Date Resolved Date Essential hypertension, benign 06/30/2004 0 03/12/2008 ROUTINE MEDICAL EXAM 06/30/2004 11/26/2014 CHEST PAIN NOS 06/30/2004 11/26/2014 documented as of this encounter (statuses as of 09/16/2021) [address] History of Past illness Narrative* Problem Noted Date Resolved Date Essential hypertension, benign 06/30/2004 0 03/12/2008 ROUTINE MEDICAL EXAM 06/30/2004 11/26/2014 CHEST PAIN NOS 06/30/2004 11/26/2014 documented as of this encounter (statuses as of 09/17/2021) [address]2005 History of Past illness Narrative* Problem Noted Date Resolved Date Essential hypertension, benign 06/30/2004 0 03/12/2008 ROUTINE MEDICAL EXAM 06/30/2004 11/26/2014 CHEST PAIN NOS 06/30/2004 11/26/2014 documented as of this encounter (statuses as of 09/19/2021) [address]2005 History of Past illness Narrative* Problem Noted Date Resolved Date Essential hypertension, benign 06/30/2004 0 03/12/2008 ROUTINE MEDICAL EXAM 06/30/2004 11/26/2014 CHEST PAIN NOS 06/30/2004 11/26/2014 documented as of this encounter (statuses as of 09/22/2021) [address] History of Past illness Narrative* Problem Noted Date Resolved Date Essential hypertension, benign 06/30/2004 0 03/12/2008 ROUTINE MEDICAL EXAM 06/30/2004 11/26/2014 CHEST PAIN NOS 06/30/2004 11/26/2014 documented as of this encounter (statuses as of 09/29/2021) [address]2005 History of Past illness Narrative* Problem Noted Date Resolved Date Essential hypertension, benign 06/30/2004 0 03/12/2008 ROUTINE MEDICAL EXAM 06/30/2004 11/26/2014 CHEST PAIN NOS 06/30/2004 11/26/2014 documented as of this encounter (statuses as of 09/29/2021) [address] History of Past illness Narrative* Problem Noted Date Resolved Date Essential hypertension, benign 06/30/2004 0 03/12/2008 ROUTINE MEDICAL EXAM 06/30/2004 11/26/2014 CHEST PAIN NOS 06/30/2004 11/26/2014 documented as of this encounter (statuses as of 09/29/2021) [address]25-2005 History of Past illness Narrative* Problem Noted Date Resolved Date Essential hypertension, benign 06/30/2004 0 03/12/2008 ROUTINE MEDICAL EXAM 06/30/2004 11/26/2014 CHEST PAIN NOS 06/30/2004 11/26/2014 documented as of this encounter (statuses as of 10/09/2021) [address]2005 History of Past illness Narrative* Problem Noted Date Resolved Date Essential hypertension, benign 06/30/2004 0 03/12/2008 ROUTINE MEDICAL EXAM 06/30/2004 11/26/2014 CHEST PAIN NOS 06/30/2004 11/26/2014 documented as of this encounter (statuses as of 10/13/2021) [address]2005 History of Past illness Narrative* Problem Noted Date Resolved Date Essential hypertension, benign 06/30/2004 0 03/12/2008 ROUTINE MEDICAL EXAM 06/30/2004 11/26/2014 CHEST PAIN NOS 06/30/2004 11/26/2014 documented as of this encounter (statuses as of 10/14/2021) [address]2005 History of Past illness Narrative* Problem Noted Date Resolved Date Essential hypertension, benign 06/30/2004 0 03/12/2008 ROUTINE MEDICAL EXAM 06/30/2004 11/26/2014 CHEST PAIN NOS 06/30/2004 11/26/2014 documented as of this encounter (statuses as of 10/21/2021) [address]25-2005 History of Past illness Narrative* Problem Noted Date Resolved Date Essential hypertension, benign 06/30/2004 0 03/12/2008 ROUTINE MEDICAL EXAM 06/30/2004 11/26/2014 CHEST PAIN NOS 06/30/2004 11/26/2014 documented as of this encounter (statuses as of 10/21/2021) [address]2005 History of Past illness Narrative* Problem Noted Date Resolved Date Essential hypertension, benign 06/30/2004 0 03/12/2008 ROUTINE MEDICAL EXAM 06/30/2004 11/26/2014 CHEST PAIN NOS 06/30/2004 11/26/2014 documented as of this encounter (statuses as of 10/27/2021) [address] History of Past illness Narrative* Problem Noted Date Resolved Date Essential hypertension, benign 06/30/2004 0 03/12/2008 ROUTINE MEDICAL EXAM 06/30/2004 11/26/2014 CHEST PAIN NOS 06/30/2004 11/26/2014 documented as of this encounter (statuses as of 10/27/2021) [address]2005 History of Past illness Narrative* Problem Noted Date Resolved Date Essential hypertension, benign 06/30/2004 0 03/12/2008 ROUTINE MEDICAL EXAM 06/30/2004 11/26/2014 CHEST PAIN NOS 06/30/2004 11/26/2014 documented as of this encounter (statuses as of 11/03/2021) [address]2005 History of Past illness Narrative* Problem Noted Date Resolved Date Essential hypertension, benign 06/30/2004 0 03/12/2008 ROUTINE MEDICAL EXAM 06/30/2004 11/26/2014 CHEST PAIN NOS 06/30/2004 11/26/2014 documented as of this encounter (statuses as of 11/04/2021) [address]2005 History of Past illness Narrative* Problem Noted Date Resolved Date Essential hypertension, benign 06/30/2004 0 03/12/2008 ROUTINE MEDICAL EXAM 06/30/2004 11/26/2014 CHEST PAIN NOS 06/30/2004 11/26/2014 documented as of this encounter (statuses as of 11/06/2021) [address]2005 History of Past illness Narrative* Problem Noted Date Resolved Date Essential hypertension, benign 06/30/2004 0 03/12/2008 ROUTINE MEDICAL EXAM 06/30/2004 11/26/2014 CHEST PAIN NOS 06/30/2004 11/26/2014 documented as of this encounter (statuses as of 11/17/2021) [address] History of Past illness Narrative* Problem Noted Date Resolved Date Essential hypertension, benign 06/30/2004 0 03/12/2008 ROUTINE MEDICAL EXAM 06/30/2004 11/26/2014 CHEST PAIN NOS 06/30/2004 11/26/2014 documented as of this encounter (statuses as of 11/19/2021) [address]2005 History of Past illness Narrative* Problem Noted Date Resolved Date Essential hypertension, benign 06/30/2004 0 03/12/2008 ROUTINE MEDICAL EXAM 06/30/2004 11/26/2014 CHEST PAIN NOS 06/30/2004 11/26/2014 documented as of this encounter (statuses as of 11/21/2021) [address]2005 History of Past illness Narrative* Problem Noted Date Resolved Date Essential hypertension, benign 06/30/2004 0 03/12/2008 ROUTINE MEDICAL EXAM 06/30/2004 11/26/2014 CHEST PAIN NOS 06/30/2004 11/26/2014 documented as of this encounter (statuses as of 11/21/2021) [address]2005 History of Past illness Narrative* Problem Noted Date Resolved Date Essential hypertension, benign 06/30/2004 0 03/12/2008 ROUTINE MEDICAL EXAM 06/30/2004 11/26/2014 CHEST PAIN NOS 06/30/2004 11/26/2014 documented as of this encounter (statuses as of 11/25/2021) [address]2005 History of Past illness Narrative* Problem Noted Date Resolved Date Essential hypertension, benign 06/30/2004 0 03/12/2008 ROUTINE MEDICAL EXAM 06/30/2004 11/26/2014 CHEST PAIN NOS 06/30/2004 11/26/2014 documented as of this encounter (statuses as of 11/29/2021) [address]2005 History of Past illness Narrative* Problem Noted Date Resolved Date Essential hypertension, benign 06/30/2004 0 03/12/2008 ROUTINE MEDICAL EXAM 06/30/2004 11/26/2014 CHEST PAIN NOS 06/30/2004 11/26/2014 documented as of this encounter (statuses as of 12/09/2021) [address]2005 History of Past illness Narrative* Problem Noted Date Resolved Date Essential hypertension, benign 06/30/2004 0 03/12/2008 ROUTINE MEDICAL EXAM 06/30/2004 11/26/2014 CHEST PAIN NOS 06/30/2004 11/26/2014 documented as of this encounter (statuses as of 12/17/2021) [address]2005 History of Past illness Narrative* Problem Noted Date Resolved Date Essential hypertension, benign 06/30/2004 0 03/12/2008 ROUTINE MEDICAL EXAM 06/30/2004 11/26/2014 CHEST PAIN NOS 06/30/2004 11/26/2014 documented as of this encounter (statuses as of 12/27/2021) [address]2005 History of Past illness Narrative* Problem Noted Date Resolved Date Essential hypertension, benign 06/30/2004 0 03/12/2008 ROUTINE MEDICAL EXAM 06/30/2004 11/26/2014 CHEST PAIN NOS 06/30/2004 11/26/2014 documented as of this encounter (statuses as of 12/28/2021) [address]2005 History of Past illness Narrative* Problem Noted Date Resolved Date Essential hypertension, benign 06/30/2004 0 03/12/2008 ROUTINE MEDICAL EXAM 06/30/2004 11/26/2014 CHEST PAIN NOS 06/30/2004 11/26/2014 documented as of this encounter (statuses as of 12/30/2021) [address]2005 History of Past illness Narrative* Problem Noted Date Resolved Date Essential hypertension, benign 06/30/2004 0 03/12/2008 ROUTINE MEDICAL EXAM 06/30/2004 11/26/2014 CHEST PAIN NOS 06/30/2004 11/26/2014 documented as of this encounter (statuses as of 12/30/2021) [address]2005 History of Past illness Narrative* Problem Noted Date Resolved Date Essential hypertension, benign 06/30/2004 0 03/12/2008 ROUTINE MEDICAL EXAM 06/30/2004 11/26/2014 CHEST PAIN NOS 06/30/2004 11/26/2014 documented as of this encounter (statuses as of 01/07/2022) [address] History of Past illness Narrative* Problem Noted Date Resolved Date Essential hypertension, benign 06/30/2004 0 03/12/2008 ROUTINE MEDICAL EXAM 06/30/2004 11/26/2014 CHEST PAIN NOS 06/30/2004 11/26/2014 documented as of this encounter (statuses as of 01/20/2022) [address] History of Past illness Narrative* Problem Noted Date Resolved Date Essential hypertension, benign 06/30/2004 0 03/12/2008 ROUTINE MEDICAL EXAM 06/30/2004 11/26/2014 CHEST PAIN NOS 06/30/2004 11/26/2014 documented as of this encounter (statuses as of 01/22/2022) [address] History of Past illness Narrative* Problem Noted Date Resolved Date Essential hypertension, benign 06/30/2004 0 03/12/2008 ROUTINE MEDICAL EXAM 06/30/2004 11/26/2014 CHEST PAIN NOS 06/30/2004 11/26/2014 documented as of this encounter (statuses as of 01/26/2022) [address] History of Past illness Narrative* Problem Noted Date Resolved Date Essential hypertension, benign 06/30/2004 0 03/12/2008 ROUTINE MEDICAL EXAM 06/30/2004 11/26/2014 CHEST PAIN NOS 06/30/2004 11/26/2014 documented as of this encounter (statuses as of 02/12/2022) [place] [address] History of Past illness Narrative* Problem Noted Date Resolved Date Essential hypertension, benign 06/30/2004 0 03/12/2008 ROUTINE MEDICAL EXAM 06/30/2004 11/26/2014 CHEST PAIN NOS 06/30/2004 11/26/2014 documented as of this encounter (statuses as of 02/13/2022) [address] History of Past illness Narrative* Problem Noted Date Resolved Date Essential hypertension, benign 06/30/2004 0 03/12/2008 ROUTINE MEDICAL EXAM 06/30/2004 11/26/2014 CHEST PAIN NOS 06/30/2004 11/26/2014 documented as of this encounter (statuses as of 02/16/2022) [address] History of Past illness Narrative* Problem Noted Date Resolved Date Essential hypertension, benign 06/30/2004 0 03/12/2008 ROUTINE MEDICAL EXAM 06/30/2004 11/26/2014 CHEST PAIN NOS 06/30/2004 11/26/2014 documented as of this encounter (statuses as of 02/17/2022) [address] History of Past illness Narrative* Problem Noted Date Resolved Date Essential hypertension, benign 06/30/2004 0 03/12/2008 ROUTINE MEDICAL EXAM 06/30/2004 11/26/2014 CHEST PAIN NOS 06/30/2004 11/26/2014 documented as of this encounter (statuses as of 02/17/2022) [address] History of Past illness Narrative* Problem Noted Date Resolved Date Essential hypertension, benign 06/30/2004 0 03/12/2008 ROUTINE MEDICAL EXAM 06/30/2004 11/26/2014 CHEST PAIN NOS 06/30/2004 11/26/2014 documented as of this encounter (statuses as of 03/13/2022) [address] History of Past illness Narrative* Problem Noted Date Resolved Date Essential hypertension, benign 06/30/2004 0 03/12/2008 ROUTINE MEDICAL EXAM 06/30/2004 11/26/2014 CHEST PAIN NOS 06/30/2004 11/26/2014 documented as of this encounter (statuses as of 03/13/2022) [address] History of Past illness Narrative* Problem Noted Date Resolved Date Essential hypertension, benign 06/30/2004 0 03/12/2008 ROUTINE MEDICAL EXAM 06/30/2004 11/26/2014 CHEST PAIN NOS 06/30/2004 11/26/2014 documented as of this encounter (statuses as of 03/17/2022) [address] History of Past illness Narrative* Problem Noted Date Resolved Date Essential hypertension, benign 06/30/2004 0 03/12/2008 ROUTINE MEDICAL EXAM 06/30/2004 11/26/2014 CHEST PAIN NOS 06/30/2004 11/26/2014 documented as of this encounter (statuses as of 03/17/2022) [address] History of Past illness Narrative* Problem Noted Date Resolved Date Essential hypertension, benign 06/30/2004 0 03/12/2008 ROUTINE MEDICAL EXAM 06/30/2004 11/26/2014 CHEST PAIN NOS 06/30/2004 11/26/2014 documented as of this encounter (statuses as of 03/23/2022) [address] History of Past illness Narrative* Problem Noted Date Resolved Date Essential hypertension, benign 06/30/2004 0 03/12/2008 ROUTINE MEDICAL EXAM 06/30/2004 11/26/2014 CHEST PAIN NOS 06/30/2004 11/26/2014 documented as of this encounter (statuses as of 03/24/2022) [address] History of Past illness Narrative* Problem Noted Date Resolved Date Essential hypertension, benign 06/30/2004 0 03/12/2008 ROUTINE MEDICAL EXAM 06/30/2004 11/26/2014 CHEST PAIN NOS 06/30/2004 11/26/2014 documented as of this encounter (statuses as of 03/25/2022) [address] History of Past illness Narrative* Problem Noted Date Resolved Date Essential hypertension, benign 06/30/2004 0 03/12/2008 ROUTINE MEDICAL EXAM 06/30/2004 11/26/2014 CHEST PAIN NOS 06/30/2004 11/26/2014 documented as of this encounter (statuses as of 03/27/2022) [address] History of Past illness Narrative* Problem Noted Date Resolved Date Essential hypertension, benign 06/30/2004 0 03/12/2008 ROUTINE MEDICAL EXAM 06/30/2004 11/26/2014 CHEST PAIN NOS 06/30/2004 11/26/2014 documented as of this encounter (statuses as of 04/02/2022) [facility]04[facility]2005 History of Past illness Narrative* Problem Noted Date Resolved Date Essential hypertension, benign 06/30/2004 0 03/12/2008 ROUTINE MEDICAL EXAM 06/30/2004 11/26/2014 CHEST PAIN NOS 06/30/2004 11/26/2014 documented as of this encounter (statuses as of 04/09/2022) [facility]iu [facility] April 16, 2022 1:56pm Note Date/Time April 16, 2022 1 :41pm [facility] Medical Records Department [address] [place] [address] Discharge Summary 04/16/22 1341 MR#: [id number] Acct: [id number] Name: YEFRI YANEZ Rep #:[id number] 1965 57 From: Carol Chiu DO PCP: Dr. Jose Ramon Turner MD Status: ADM IN Location: [place] [address] Providers Date of Admission: 04/13/22 Date of [...] Hospital Course: Mr. 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 Aravind Lopez at [facility]. 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 He request to see Dr. Gaona however [...] distress and well nourished Constitutional Narrative: Obese, -Monegasque, sitting up on the edge of the [...] Self Care Charges/Coding Visit Charges Inpatient E&M: 48706 Disch Hosp >30min 04/16/22 1355 <Electronically signed by Carol Chiu DO> Cosigner Signature (if applicable): CC: Dr. Jose Ramon Turner MD; Dr. Carol Chiu DO~ Signed [facility] Work Phone: Discharge summary Author Carol [facility] December 17, 2022 12:20pm Note Date/Time December 17, 2022 1 2:11pm [facility] Medical Records Department [address] [place] [address] Discharge Summary 12/17/22 1210 MR#: [id number] Acct: [id number] Name: YEFRI YANEZ Rep #:[id number] : 1965 57 From: Carol Chiu DO [...] Hospital Course: Mr. Yanez is a 57-year-old -Monegasque male who presented to the emergency department at [facility] on 12/15/2022 with worsening shortness of breath. Patient told the admitting physician that he is supposed to be wearing his oxygen all the time at home however he is only wearing it whenneeded. His oxygen was written for by Dr. Yanez and is to be 3 L [id number]. He does have a history of systolic [...] failure--> home prescription is for 3 L [id number] Atrial fibrillation Hyperlipidemia GERD NIMCO Tobacco abuse Physical Exam Const no apparent distress and well nourished; Negative for average body habitus or healthy appearing Constitutional Narrative: Obese, -Monegasque, male, lying in bed resting comfortably but [...] 71.5 H, Lymph % (Auto) 16.9 L, Burt % (Auto) 9.8, Eos % (Auto) 1.0, [...] Self Care Charges/Coding Visit Charges Inpatient E&M: 21699 Disch Hosp >30min 12/17/22 1220 <Electronically signed by Carol Chiu DO> Cosigner Signature (if applicable): CC: Dr. Jose Ramon Turner MD; Dr. Carol Chiu DO; Dr. Cipriano Yanez MD~ [facility] Work Phone: Evaluation note* Diagnosis Onset Date Resolution Status Mass of chest wall [facility] Work Phone: Evaluation note* Diagnosis Malignant neoplasm of kidney, unspecified laterality (HCC)- Primary Malignant neoplasm of kidney excluding renal pelvis, unspecified laterality (HCC) [facility] Mass of right chest wall- Primary [facility] Screening for genitourinary condition Screening for other and unspecified genitourinary condition Malignant neoplasm of kidney, unspecified laterality (HCC) [facility] Malignant neoplasm of kidney, unspecified laterality (HCC) Malignant neoplasm of kidney excluding renal pelvis, unspecified laterality (HCC) Malignant neoplasm of kidney, unspecified laterality (HCC) [facility] Malignant neoplasm of kidney, unspecified laterality (HCC) Malignant neoplasm of kidney excluding renal pelvis, unspecified laterality (HCC) [facility] Diagnosis Malignant neoplasm of kidney, unspecified laterality (HCC) Malignant neoplasm of kidney excluding renal pelvis, unspecified laterality (HCC) Chest wall mass Swelling, mass, or lump in chest [facility] Diagnosis Malignant neoplasm of kidney excluding renal pelvis, unspecified laterality (HCC)- Primary [facility] Diagnosis Malignant neoplasm of kidney excluding renal pelvis, unspecified laterality (HCC) [facility] Diagnosis Malignant neoplasm of kidney excluding renal pelvis, unspecified laterality (HCC)- Primary Renal cell carcinoma, unspecified laterality (HCC) [facility] Diagnosis Malignant neoplasm of right kidney, except renal pelvis (HCC)- Primary Malignant neoplasm of kidney, except pelvis [facility] Diagnosis Anxiety- Primary Anxiety state, unspecified [facility] Diagnosis Malignant neoplasm of right kidney, except renal pelvis (HCC) Malignant neoplasm of kidney, except pelvis [facility] Diagnosis Malignant neoplasm of kidney excluding renal pelvis, unspecified laterality (HCC)- Primary [facility] Diagnosis Malignant neoplasm of right kidney, except renal pelvis (HCC) Malignant neoplasm of kidney, except pelvis Renal cell carcinoma, unspecified laterality (HCC) [facility] encounter [facility]* Diagnosis Malignant neoplasm of kidney excluding renal pelvis, unspecified laterality (HCC) Renal cell carcinoma, unspecified laterality (HCC) [facility] noteNo assessment information availableWCorey Hospital Work Phone: Evaluation note* Diagnosis Nonrheumatic mitral valve regurgitation- Primary Cardiomyopathy, nonischemic (HCC) Other primary cardiomyopathies documented [facility] this encounter [facility]* Diagnosis Malignant neoplasm of kidney excluding renal pelvis, unspecified laterality (HCC)- Primary Metastatic renal cell carcinoma, unspecified laterality (HCC) documented in this encounter [facility]* Diagnosis Renal cell carcinoma, unspecified laterality (HCC)- Primary [facility] this encounter [facility]* Diagnosis Malignant neoplasm of kidney excluding renal pelvis, unspecified laterality (HCC) documented in this encounter [facility]* Diagnosis Renal cell carcinoma of right kidney (HCC)- Primary [facility]* Diagnosis Nonrheumatic mitral valve regurgitation- Primary Nonrheumatic mitral valve regurgitation documented [facility] this encounter [facility]* Diagnosis Renal cell carcinoma, unspecified laterality (HCC)- Primary Hypertension, unspecified type [facility]* Diagnosis Renal cell carcinoma of right kidney (HCC)- Primary [facility]* Diagnosis Malignant neoplasm of right kidney, except renal pelvis (HCC) Malignant neoplasm of kidney, except pelvis [facility]* Diagnosis Renal cell carcinoma, unspecified laterality (HCC)- Primary [facility] this encounter [facility]* Diagnosis Renal cell carcinoma of right kidney (HCC)- Primary documented in this encounter [facility]* Diagnosis Renal cell carcinoma of right kidney (HCC)- Primary [facility] Diagnosis Other specified disorders of kidney and ureter [facility] Diagnosis OPENED IN ERROR- Primary To allow closing an encounter opened in error (used in SmartSet) documented in this encounter [facility]* Diagnosis Pedal edema- Primary Edema Essential hypertension Unspecified essential hypertension Coronary artery disease involving [place] coronary artery of [place] heart without angina pectoris Disturbance in sleep behavior Sleep disturbance, unspecified [facility] this encounter [facility]* Diagnosis Renal cell carcinoma, unspecified laterality (HCC)- Primary Hypertension, unspecified type documented in this encounter [facility]* Diagnosis Renal cell carcinoma, unspecified laterality (HCC)- Primary [facility]* Diagnosis Malignant neoplasm of kidney excluding renal pelvis, unspecified laterality (HCC) documented in this encounter [facility]* Diagnosis Malignant neoplasm of right kidney, except renal pelvis (HCC)- Primary Malignant neoplasm of kidney, except pelvis documented in this encounter [facility]* Diagnosis SOB (shortness of breath)- Primary Shortness of breath Encounter for screening for COVID-19 Renal mass, right Unspecified disorder of kidney and ureter documented in this encounter [facility]* Diagnosis SOB (shortness of breath) Shortness of breath Encounter for screening for COVID-19 Renal mass, right Unspecified disorder of kidney and ureter documented [facility] this encounter [facility]* Diagnosis SOB (shortness of breath) Shortness of breath Encounter for screening for COVID-19 Renal mass, right Unspecified disorder of kidney and ureter documented in this encounter [facility]* Diagnosis Renal cell carcinoma of right kidney (HCC)- Primary Encounter for screening for COVID-19 Renal mass, right Unspecified disorder of kidney and ureter documented in this encounter [facility]* Diagnosis Metastatic renal cell carcinoma, unspecified laterality (HCC) Pneumonitis Pneumonia, organism unspecified Atrial fibrillation, unspecified type (HCC) Hypertension, unspecified type Encounter for screening for COVID-19 Renal mass, right Unspecified disorder of kidney and ureter documented in this encounter [facility]* Diagnosis Paroxysmal atrial fibrillation (HCC)- Primary Atrial fibrillation Mitral valve insufficiency, unspecified etiology New onset a-fib (HCC) Atrial fibrillation Essential hypertension Unspecified essential hypertension Mixed hyperlipidemia 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) Encounter for screening for COVID-19 Renal mass, right Unspecified disorder of kidney and ureter documented in this encounter [facility]* Diagnosis Paroxysmal atrial fibrillation (HCC)- Primary Atrial fibrillation Encounter for screening for COVID-19 Renal mass, right Unspecified disorder of kidney and ureter documented in this encounter [facility]* Diagnosis Renal cell carcinoma of right kidney (HCC)- Primary Atrial fibrillation, unspecified type (HCC) Encounter for screening for COVID-19 Renal mass, right Unspecified disorder of kidney and ureter documented in this encounter [facility]* Diagnosis Renal cell carcinoma of right kidney (HCC)- Primary Encounter for screening for COVID-19 Renal mass, right Unspecified disorder of kidney and ureter documented in this encounter [facility]* Diagnosis Preoperative examination- Primary Preoperative examination, [...] Other abnormal glucose Coronary artery disease involving [place] coronary artery of [place] heart, unspecified whether angina present Encounter for screening for COVID-19 Renal mass, right Unspecified disorder of kidney and ureter documented in this encounter [facility]* Diagnosis Metastatic renal cell carcinoma, unspecified laterality (HCC)- Primary documented in this encounter [facility]* Diagnosis Malignant neoplasm of right kidney, except renal pelvis (HCC) Malignant neoplasm of kidney, except pelvis documented in this encounter [facility]* Diagnosis Onset Date Resolution Status Atrial fibrillation with RVR acute Hypoxemia acute Systolic CHF, acute acute Acute exacerbation of CHF (congestive heart failure) [facility] Work Phone: Evaluation note* Diagnosis Renal cell carcinoma of right kidney (HCC)- Primary documented in this encounter [facility]* Diagnosis Renal cell carcinoma of right kidney (HCC)- Primary documented in this encounter [facility]* Diagnosis Renal cell carcinoma of right kidney (HCC) documented in this encounter [facility]* Diagnosis Screening for genitourinary condition Screening for other and unspecified genitourinary condition documented in this encounter [facility]* Cardiovascular: Regular, rate and rhythm, no [...] induration. Appropriately TTP.Psychological: Appropriate mood and behavior [facility] Diagnosis Renal cell carcinoma of right kidney metastatic to other site (HCC)- Primary Paroxysmal atrial fibrillation (HCC)- Primary Atrial fibrillation Nonrheumatic mitral valve regurgitation Acute decompensated heart failure (HCC) Congestive heart failure, unspecified Essential hypertension Unspecified essential hypertension Tobacco use disorder NIMCO (obstructive sleep apnea) Obstructive sleep apnea (adult) (pediatric) documented in this encounter [facility]* Diagnosis Paroxysmal atrial fibrillation (HCC)- Primary Atrial fibrillation Nonrheumatic mitral valve regurgitation Acute decompensated heart failure (HCC) Congestive heart failure, unspecified Essential hypertension Unspecified essential hypertension Tobacco use disorder NIMCO (obstructive sleep apnea) Obstructive sleep apnea (adult) (pediatric) documented in this encounter [facility]* Diagnosis Metastatic renal cell carcinoma, unspecified laterality (HCC)- Primary [facility] encounter [facility]* Diagnosis Renal cell carcinoma of right kidney (HCC)- Primary [facility]* Diagnosis Renal cell carcinoma of right kidney (HCC)- Primary [facility]* Diagnosis Renal cell carcinoma of right kidney (HCC)- Primary [facility] this [facility]* Diagnosis Malignant neoplasm of right kidney, except renal pelvis (HCC)- Primary Malignant neoplasm of kidney, except pelvis [facility] encounter [facility]* Diagnosis Onset Date Resolution Status Acute exacerbation of CHF (congestive heart failure) [facility] Work Phone: Evaluation note* Diagnosis Onset Date Resolution Status Elevated serum creatinine ac [place] Elevated troponin I level ac [place] Hypoxemia acute Systolic CHF, acute acute Acute exacerbation of CHF (congestive heart failure) [facility] Work Phone: Evaluation note* Diagnosis Onset Date Resolution Status Acute exacerbation of CHF (congestive heart failure) resolved Hypoxemia resolved Systolic CHF, acute resolved [facility] Work Phone: Evaluation note* Diagnosis Onset Date Resolution Status Acute exacerbation of CHF (congestive heart failure) resolved Hypoxemia resolved Systolic CHF, acute resolved CHF (congestive heart failure) acute Dyspnea acute [facility] Work Phone: Evaluation note* Diagnosis Onset Date Resolution Status Acute exacerbation of CHF (congestive heart failure) resolved Hypoxemia resolved Systolic CHF, acute resolved CHF (congestive heart failure) acute Dyspnea acute Thrush acute Hypertension [facility] Work Phone: Evaluation note* Diagnosis Onset Date Resolution Status Acute exacerbation of CHF (congestive heart failure) resolved Hypoxemia resolved Systolic CHF, acute resolved Thrush acute CHF (congestive heart failure) resolved Dyspnea resolved Cancer acute Renal failure acute CHF (congestive heart failure) resolved 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 Dyspnea acute [facility] Work Phone: Evaluation note* Diagnosis Onset Date [...] Metastatic renal cell carcinoma to bone [facility] Work Phone: Evaluation note* Diagnosis Onset [...] to bone chronic Renal cell cancer [facility] Work Phone: Evaluation note* Diagnosis Onset [...] systolic heart failure chronic Chronic a-fib chronic [facility] Work Phone: Evaluation note* Diagnosis Onset Date Resolution Status Renal failure acute CHF (congestive heart failure) resolved Acute on chronic renal insufficiency resolved Acute on chronic systolic heart failure resolved Acute respiratory insufficiency resolved Acute systolic heart failure resolved Hemoptysis resolved Shortness of breath resolved [facility] Work Phone: Evaluation note* Diagnosis Onset Date Resolution Status Acute on chronic renal insufficiency resolved Acute on chronic systolic heart failure resolved Acute respiratory insufficiency resolved Acute systolic heart failure resolved Hemoptysis resolved Shortness of breath resolved [facility] Work Phone: Evaluation note* Diagnosis Onset Date Resolution Status 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 Renal cell cancer chronic [facility] Work Phone: Evaluation note* Diagnosis Pre-op exam- [...] Other abnormal glucose Coronary artery disease involving ugashik coronary artery of ugashik heart, unspecified whether angina present Acute decompensated heart failure (HCC) Congestive heart failure, unspecified Paroxysmal atrial fibrillation (HCC) Atrial fibrillation documented in this encounter [facility] Author Dr. Camacho [facility] April 14, 2022 12:43am Note Date/Time April 14, 2022 1 2:24am [facility] Medical Records Department [address] [place] [address] H&P Exam - Hospitalist 04/13/22 2334 MR#: [id number] Acct: [id number] Name: YEFRI YANEZ Rep #:[id number] : 1965 57 From: Dangelo Camacho MD [...] 79.4 H, Lymph % (Auto) 12.7 L, Burt % (Auto) 7.1, Eos % (Auto) 0.0, [...] is subtherapeutic. Charges/Coding Visit Charges Inpatient E&M: 19836 Init Hosp L3 04/14/22 0043 <Electronically signed by Dangelo Camacho MD> Cosigner Signature (if applicable): CC: Dr. Jose Ramon Turner MD; Dr. Dangelo Camacho MD~ Signed [facility] Work Phone: History and physical note Author Dr. Lu [facility] June 28, 2022 12:52am Note Date/Time June 28, 2022 12: 20am [facility] Medical Records Department [address] [place] [address] H&P Exam - Hospitalist 06/28/22 0007 MR#: [id number] Acct: [id number] Name: YEFRI YANEZ Rep #:[id number] : 1965 57 From: Estelita Lu MD PCP: Dr. Jose Ramon Turner MD Status: ADM IN Location: [place] [id number] HPI - General General Date of Admission: 06/28/22 Date of Service: 06/28/22 Chief Complaint: Dyspnea, chest pain, wheezing, cough, recent incorrect Rx bumex. HPI Narrative The patient is a 57 y/o M w/ PMHx: Obesity, NIMCO on CPAP, PAF s/p prior cardioversion on coumadin, COPD, HTN, HLD, GERD, Metastatic renal CA s/p R nephrectomy, Tobacco use who presents to the [facility] ED on 06/27/22 with history [...] 75.4 H, Lymph % (Auto) 16.8 L, Burt % (Auto) 6.0, Eos % (Auto) 0.5, [...] nephrectomy, Tobacco use who presents to the [facility] ED on 06/27/22 with history [...] spine 12/2021, 02/06/2022 right radical nephrectomy at [facility], CT scan on 03/26/2022 showed no [...] INR therapeutic 2.0. #15. CODE status: Patient YRISOA is his who is present and living [...] 75 minutes. Charges/Coding Visit Charges Inpatient E&M: 19444 Init Hosp L3 Procedures Hospitalists Procedures: 22232 Advncd Care Plan 30 Min 06/28/22 0052 <Electronically signed by Estelita Lu MD> Cosigner Signature (if applicable): CC: Dr. Estelita Lu MD; Dr. Jose Ramon uTrner MD~ Signed [facility] Work Phone: History of Present illness Narrative* 57-year-old male referred [facility] cytoreductive neph[facility] * Referred by Dr. [...] between urology, medical oncology, radiation oncology at [facility] was local therapy to metastatic sites and cytoreductive nephrectomy. * 12/08/2021-echo with EF 35%, LV and RV enlargement and hypokinesis * 12/26/2021-patient completed radiation to chest wall and L4 lesion * Patient has remained on cabo * Patient was scheduled for nephrectomy with Dr. Adriana Hodge, due to insurance issues patient could not be operated on at [facility], referred [facility] for [facility]. * 01/19/2022-patient scheduled for laparoscopic nephrectomy 02/03 * 01/20/2022-patient presented to [place] ER with shortness of breath * 01/27/2022-patient presented to [facility] with persistence of subjective dyspnea, expiratory wheezing * 01/29/2022-patient represented to [place] ED with chest tightness and shortness of [...] fatigue. Appetite is normal. Normal bowel function. [facility] SJW 400 DO Work Phone: Hospital Discharge [...] torsemide if you do not already have it.[facility] Work Phone: Reason for referral (narrative)* Diagnostic Procedure Only (Routine) - Closed Specialty Diagnoses / Procedures Referred By Sujatha vasquez Referred To Contact MOLECULAR & FUNCTIONAL IMAGING Diagnoses Malignant neoplasm of kidney, unspecified laterality (HCC) Malignant neoplasm of kidney excluding renal pelvis, unspecified laterality (HCC) Procedures NM BONE WHOLE BODY BONE &/JOINT IMAGING WHOLE BODY Adriana Hodge MD [address] [place] [address] Molecular & Functional Imaging [address] [place] [address] Referral ID Status Reason Start Date Expiration Date V isits Requested Visits Authorized [id number] Closed Auto-Generate d Referral 06/26/2021 08/10/2021 [address] [facility] for referral (narrative)* Outpatient Procedure (Routine) - Authorized Specialty Diagnoses / Procedures [facility] To Contact [facility] Diagnoses Malignant neoplasm of right kidney, except renal pelvis (HCC) Procedures ECHO ECHO TTHRC R-T 2D W/WOM-MODE COMPL SPEC&COLR D Stephany Ceballos PA-C [address] [place] [address] [address] Referral ID Status Reason Start Date Expiration Date Visits Requested Visits Authorized [id number] Authorized Auto-Generat ed Referral 07/11/2021 07/11/2022 1 1 * Outpatient Procedure (Routine) - Authorized Specialty Diagnoses / Procedures [facility] To Contact [facility] Diagnoses Malignant neoplasm of right kidney, except renal pelvis (HCC) Procedures ECG COMPLETE ECG ROUTINE ECG W/LEAST 12 LDS W/I&R Stephany Ceballos PA-C [address] [place] [address] [address] Referral ID Status Reason Start Date Expiration Date Visits Requested Visits Authorized [id number] Authorized Auto-Generat ed Referral 07/11/2021 07/11/2022 [address] [facility] for referral (narrative)* Reason for Referral: impaired mobility, gait training, impaired cognition/safety awareness [facility] ([facility] Outpatient Procedure (Routine) - Denied Specialty Diagnoses / Procedures Referred By Contac t Referred To Contact [facility] Diagnoses Acute decompensated heart failure (HCC) Paroxysmal atrial fibrillation (HCC) Procedures ECHO LIMITED ECHO TRANSTHORAC R-T 2D W/WO M-MODE REC COMP Sayra Tello MD [address] [place] [address] [facility] [place] [address] [place] [address] Referral ID Status Reason Start Date Expiration Date V isits Requested Visits Authorized [id number] Denied Auto-Generate d Referral 02/16/2022 02/16/2023 [address] [facility] for referral (narrative)* Diagnostic Procedure Only (Routine) - Authorized Specialty Diagnoses / Procedures Referred By [facility] Referred To Contact MOLECULAR & FUNCTIONAL IMAGING Diagnoses Renal cell carcinoma of right kidney (HCC) Procedures NM BONE WHOLE BODY BONE &/JOINT IMAGING WHOLE BODY Haylee Wilburn MD [address] [place] [address] Molecular [facility] Functional Imaging [address] [place] [address] Referral ID Status Reason Start Date Expiration Date Visits Requested Visits Authorized [id number] Authorized Auto-Generat ed Referral 03/11/2022 04/10/2023 1 1 * MRI/CT (Routine) - Authorized Specialty Diagnoses / Procedures [facility] Referred To Contact CT IMAGING Diagnoses Renal cell carcinoma of right kidney (HCC) Procedures CT CHEST W IVCON DIAGNOSTIC COMPUTED TOMOGRAPHY THORAX W/CONTRAST Haylee Wilburn MD [address] [place] [address] Imaging Referral ID Status Reason Start Date Expiration Date Visits Requested Visits Authorized [id number] Authorized Auto-Generat ed Referral 03/11/2022 04/10/2023 1 1 * MRI/CT (Routine) - Authorized Specialty Diagnoses / Procedures [facility] Referred To Contact CT IMAGING Diagnoses Renal cell carcinoma of right kidney (HCC) Procedures CT ABD/PEL W IVCON CT ABD & PELVIS W/CONTRAST Haylee Wilburn MD [address] [place] [address] Imaging Referral ID Status Reason Start Date Expiration Date Visits Requested Visits Authorized [id number] Authorized Auto-Generat ed Referral 03/11/2022 04/26/2022 1 1 [facility] for referral (narrative)* Outpatient Procedure (Routine) - Closed Specialty Diagnoses / Procedures [facility] Diagnoses Acute decompensated heart failure (HCC) Paroxysmal atrial fibrillation (HCC) Procedures ECHO LIMITED ECHO TRANSTHORAC R-T 2D W/WO M-MODE REC COMP Sayra Tello MD [address], [address] [place] [address] [facility] [place] [address] [place] [address] Referral ID Status Reason Start Date Expiration Date V isits Requested Visits Authorized [id number] Closed Patient Cleared - INN Insurance Found 02/19/2022 03/07/2022 1 1 [facility] for referral (narrative)No reason for referral [facility] Work [facility]: Reason for visit Narrative* Diagnostic Procedure Only (Routine) - Closed Specialty Diagnoses / Procedures Referred By Sujatha Referred To Contact MOLECULAR & FUNCTIONAL IMAGING Diagnoses Malignant neoplasm of kidney, unspecified laterality (HCC) Malignant neoplasm of kidney excluding renal pelvis, unspecified laterality (HCC) Procedures NM BONE WHOLE BODY BONE &/JOINT IMAGING WHOLE BODY Adriana Hodge MD [address] [place] [address] [facility] [address] [place] [address] Referral ID Status Reason Start Date Expiration Date V isits Requested Visits Authorized [id number] Closed Auto-Generate d Referral 06/26/2021 08/10/2021 [address] [facility] for visit Narrative* Auth/Cert Specialty Diagnoses / Procedures [facility] Referred To Contact Diagnoses Nonrheumatic mitral valve regurgitation Procedures CATH PLMT L HRT & ARTS W/NJX & ANGIO IMG S&I PRQ TRLUML CORONARY STENT W/ANGIO ONE ART/BRNCH CORONARY ANGIO W CATH PLACE W IMAGE INJECT & INTERP W LT HEART CATH W INJECT LT VENTRGRAPHY INSERT INTRACORONARY STENT-PER MAJOR VESSEL OR BRANCH [facility] Straight [address] [place] [address] Referral ID Status Reason Start Date Expiration Date Visits Re quested Visits Authorized [id number] [address] [facility] for visit Narrative* Outpatient Procedure (Routine) - Closed Specialty Diagnoses / Procedures Referred By Sujatha t Referred To Contact [facility] Diagnoses Malignant neoplasm of right kidney, except renal pelvis (HCC) Procedures ECG COMPLETE ECG ROUTINE ECG W/LEAST 12 LDS W/I&R Stephany Ceballos PA-C [address] [place] [address] [facility] [address] [address] Referral ID Status Reason Start Date Expiration Date V isits Requested Visits Authorized [id number] Closed Auto-Generate d Referral 07/11/2021 07/11/2022 [address] [facility] for visit Narrative* Auth/Cert Specialty Diagnoses / Procedures Referred By Sujatha Referred To Contact HOSP INPATIENT Diagnoses Paroxysmal atrial fibrillation Acute decompensated heart failure (HCC) Paroxysmal atrial fibrillation (HCC) Procedures INITIAL HOSPITAL CARE/DAY 70 MINUTES Hosp Main J[address] [place] [address] Referral ID Status Reason Start Date Expiration Date Visits Re quested Visits Authorized [id number] [address] [facility] for visit Narrative* Diagnostic Procedure Only (Routine) - Closed Specialty Diagnoses / Procedures Referred By Sujatha Referred To Contact MOLECULAR & FUNCTIONAL IMAGING Diagnoses Renal cell carcinoma of right kidney (HCC) Procedures NM BONE WHOLE BODY BONE &/JOINT IMAGING WHOLE BODY Haylee Wilburn MD [address] [place] [address] [facility] [address] [place] [address] Referral ID Status Reason Start Date Expiration Date V isits Requested Visits Authorized [id number] Closed Auto-Generate d Referral 03/11/2022 04/10/2023 [address] [facility] for visit Narrative* Outpatient Procedure (Routine) - Closed Specialty Diagnoses / Procedures Referred By Contac t Referred [facility] Diagnoses Acute decompensated heart failure (HCC) Paroxysmal atrial fibrillation (HCC) Procedures ECHO LIMITED ECHO TRANSTHORAC R-T 2D W/WO M-MODE REC COMP Sayra Tello MD [address], [address] [place] [address] [facility] [address] [place] [address] Referral ID Status Reason Start Date Expiration Date V isits Requested Visits Authorized [id number] Closed Patient Cleared - INN Insurance Found 02/19/2022 03/07/2022 1 1 [facility] Summary Purpose Family History No [...] Documents on File Type Date Recorded Patient Cardiovascular Surgeon Expl anation Advance Directive(s) 02/05/2020 6:22 PM Advance Directive(s) 11/14/2019 1:53 PM Documents on File Type Date Recorded Patient Cardiovascular Surgeon Expl anation Advance Directive(s) 02/05/2020 6:22 PM Advance Directive(s) 11/14/2019 1:53 PM Documents on File Type Date Recorded Patient Cardiovascular Surgeon Expl anation Advance Directive(s) 06/26/2021 2:39 PM Advance Directive(s) 02/05/2020 6:22 PM Advance Directive(s) 11/14/2019 1:53 PM Documents on File Type Date Recorded Patient Cardiovascular Surgeon Expl anation Advance Directive(s) 06/26/2021 2:39 PM Advance Directive(s) 02/05/2020 6:22 PM Advance Directive(s) 11/14/2019 1:53 PM Advance Directive Response Recorded Date/ Time Living Will No June 04, 2019 5:40pm Power of Systems Designer No June 03 5:40pm Documents on File Type Date Recorded Patient Cardiovascular Surgeon Expl anation Advance Directive(s) 07/31/2021 5:47 PM Advance Directive(s) 06/26/2021 2:39 PM Advance Directive(s) 02/05/2020 6:22 PM Advance Directive(s) 11/14/2019 1:53 PM Documents on File Type Date Recorded Patient Cardiovascular Surgeon Expl anation Advance Directive(s) 08/05/2021 5:50 AM Advance Directive(s) 07/31/2021 5:47 PM Advance Directive(s) 06/26/2021 2:39 PM Advance Directive(s) 02/05/2020 6:22 PM Advance Directive(s) 11/14/2019 1:53 PM Documents on File Type Date Recorded Patient Cardiovascular Surgeon Expl anation Advance Directive(s) 08/05/2021 5:50 AM Advance Directive(s) 07/31/2021 5:47 PM Advance Directive(s) 06/26/2021 2:39 PM Advance Directive(s) 02/05/2020 6:22 PM Advance Directive(s) 11/14/2019 1:53 PM Documents on File Type Date Recorded Patient Cardiovascular Surgeon Expl anation Advance Directive(s) 08/17/2021 3:47 PM Advance Directive(s) 08/05/2021 5:50 AM Advance Directive(s) 07/31/2021 5:47 PM Advance Directive(s) 06/26/2021 2:39 PM Advance Directive(s) 02/05/2020 6:22 PM Advance Directive(s) 11/14/2019 1:53 PM Documents on File Type Date Recorded Patient Cardiovascular Surgeon Expl anation Advance Directive(s) 08/17/2021 3:47 PM Advance Directive(s) 08/05/2021 5:50 AM Advance Directive(s) 07/31/2021 5:47 PM Advance Directive(s) 06/26/2021 2:39 PM Advance Directive(s) 02/05/2020 6:22 PM Advance Directive(s) 11/14/2019 1:53 PM Documents on File Type Date Recorded Patient Cardiovascular Surgeon Expl anation Advance Directive(s) 09/02/2021 6:28 PM [...] Documents on File Type Date Recorded Patient Cardiovascular Surgeon Expl anation Advance Directive(s) 09/02/2021 6:28 PM [...] Documents on File Type Date Recorded Patient Cardiovascular Surgeon Expl anation Advance Directive(s) 09/23/2021 1:52 PM [...] Documents on File Type Date Recorded Patient Cardiovascular Surgeon Expl anation Advance Directive(s) 09/23/2021 1:52 PM [...] Documents on File Type Date Recorded Patient Cardiovascular Surgeon Expl anation Advance Directive(s) 10/06/2021 1:03 PM Advance Directive(s) 09/23/2021 1:52 PM Advance Directive(s) 09/02/2021 6:28 PM Advance Directive(s) 08/17/2021 3:47 PM Advance Directive(s) 08/05/2021 5:50 AM Advance Directive(s) 07/31/2021 5:47 PM Advance Directive(s) 06/26/2021 2:39 PM Advance Directive(s) 02/05/2020 6:22 PM Advance Directive(s) 11/14/2019 1:53 PM Advance Directive Response Recorded Date/ Time Living Will No December 07 2:19pm Power of Systems Designer No December 07 2:19pm Advance Directive Response Recorded Date/ Time Living Will No January 20 7:21pm Power of Systems Designer No January 20, 2022 7:21pm Advance Directive Response Recorded Date/ Time Name of Medical Power of Systems Designer January 29, 2022 11:59am Living Will No January 29 11:59am Power of Systems Designer Yes January 29, 2022 11:59am Advance Directive Response Recorded Date/ Time Name of Medical Power of Systems Designer January 29, 2022 11:59am Name of Medical Power of Systems Designer MIYA WHITEHEADPita YANEZ- April 13, 2022 10:43pm Living Will No April 13 10:43pm Power of Systems Designer Yes April 13, 2022 10:43pm Advance Directive Response Recorded Date/ Time Name of Medical Power of Systems Designer January 29, 2022 11:59am Name of Medical Power of Systems Designer Miya gilliam April 14, 2022 1:15am Living Will No April 14 1:15am Power of Systems Designer Yes April 14, 2022 1:15am Advance Directive Response Recorded Date/ Time Name of Medical Power of Systems Designer January 29, 2022 12:59pm Name of Medical Power of Systems Designer Miya gilliam April 14, 2022 2:15am Name of Medical Power of Systems Designer miya yanez May 18, 2022 3:35pm Living Will Yes May 18, 2022 3:35pm Power of Systems Designer Yes May 18 3:35pm Advance Directive Response Recorded Date/ Time Name of Medical Power of Systems Designer January 29, 2022 12:59pm Name of Medical Power of Systems Designer Miya gilliam April 14, 2022 2:15am Name of Medical Power of Systems Designer Miya Yanez May 18, 2022 7:01pm Living Will Yes May 18, 2022 7:01pm Power of Systems Designer Yes May 18 7:01pm Advance Directive Response Recorded Date/ Time Name of Medical Power of Systems Designer Miya gilliam April 14, 2022 2:15am Name of Medical Power of Systems Designer Miya Yanez May 18, 2022 7:01pm Name of Medical Power of Systems Designer June 27, 2022 11:12pm Living Will Yes June 27, 2022 11:12pm Power of Systems Designer Yes June 27 11:12pm Advance Directive Response Recorded Date/ Time Name of Medical Power of Systems Designer Miya gilliam April 14, 2022 2:15am Name of Medical Power of Systems Designer Miya Renata May 18, 2022 7:01pm Name of Medical Power of Systems Designer Miya Yanez June 28, 2022 1:12am Living Will No June 28, 2022 1:12am Power of Systems Designer Yes June 28 1:12am Advance Directive Response Recorded Date/ Time Name of Medical Power of Systems Designer Miya Yanez May 18, 2022 7:01pm Name of Medical Power of Systems Designer Miya Yanez June 28, 2022 1:12am Living Will No June 28, 2022 1:12am Power of Systems Designer Yes June 28 1:12am Advance Directive Response Recorded Date/ Time Name of Medical Power of Systems Designer Lena Yanez December 15, 2022 4:41pm Living Will No December 15 4:41pm Power of Systems Designer Yes December 15, 2022 4:41pm Advance Directive Response Recorded Date/ Time Name of Medical Power of Systems Designer Lena Yaenz December 15, 2022 3:41pm Living Will No December 15 3:41pm Power of Systems Designer Yes December 15, 2022 3:41pm Advance Directive Response Recorded Date/ Time Living Will No December 15 3:41pm Power of Systems Designer Yes December 15, 2022 3:41pm Advance Directive Response Recorded Date/ Time Living Will No December 15 4:41pm Power of Systems Designer Yes December 15, 2022 4:41pm Date Activated [...] Do you have a Healthcare Power of Systems Designer? Yes December 15, 2022 4:41pm Advance Directive Response Recorded Date/ Time Do you have a Healthcare Power of Systems Designer? Yes October 18, 2024 9:12pm Advance Directive Response Recorded Date/ Time Do you have a Healthcare Power of Systems Designer? Yes October 19, 2024 5:19am Name of Medical Power of Systems Designer Miya Yanez October 19, 2024 5:19am Reason for Referral Specialty Diagnoses / Procedures Referred By Contac t Referred To Contact CT IMAGING Diagnoses Malignant neoplasm of kidney, unspecified laterality (HCC) Malignant neoplasm of kidney excluding renal pelvis, unspecified laterality (HCC) Procedures CT ABD/PEL WO IVCON CT ABD & PELVIS W/O CONTRAST Adriana Hodge MD [address] [place] [address] Ct Imaging Referral ID Status Reason Start Date Expiration Date Visits Requested Visits Authorized [id number] Pending Review Auto-Generat ed Referral 06/23/2021 07/23/2022 1 1 Specialty Diagnoses / Procedures Referred By Contac t Referred To Contact CT IMAGING Diagnoses Malignant neoplasm of kidney, unspecified laterality (HCC) Malignant neoplasm of kidney excluding renal pelvis, unspecified laterality (HCC) Procedures CT ABD/PEL W IVCON CT ABD & PELVIS W/CONTRAST Adriana Hodge MD [address] [place] [address] Ct Imaging Referral ID Status Reason Start Date Expiration Date Visits Requested Visits Authorized [id number] Pending Review Auto-Generat ed Referral 06/23/2021 07/23/2022 1 1 Specialty Diagnoses / Procedures Referred By Contac t Referred To Contact MOLECULAR & FUNCTIONAL IMAGING Diagnoses Malignant neoplasm of kidney, unspecified laterality (HCC) Malignant neoplasm of kidney excluding renal pelvis, unspecified laterality (HCC) Procedures NM BONE WHOLE BODY BONE &/JOINT IMAGING WHOLE BODY Adriana Hodge MD [address] [place] [address] Molecular [facility] [address] [place] [address] Referral ID Status Reason Start Date Expiration Date Visits Requested Visits Authorized [id number] Pending Review Auto-Generat ed Referral 06/23/2021 07/23/2022 1 1 Specialty Diagnoses / Procedures Referred By Contac t Referred To Contact Oncology Diagnoses Malignant neoplasm of kidney, unspecified laterality (HCC) Malignant neoplasm of kidney excluding renal pelvis, unspecified laterality (HCC) Procedures CONSULT TO ONCOLOGY OFFICE/OUTPATIENT NEW HIGH MDM 60-74 MINUTES Adriana Hodge MD [address] [place] [address] Referral ID Status Reason Start Date Expiration Date Visits Requested Visits Authorized [id number] Pending Review PCP Requested Referral 06/23/2021 06/23/2022 1 1 Specialty Diagnoses / Procedures Referred By Contac t Referred To Contact RADIO [facility] SCAN [facility] Diagnoses Malignant neoplasm of kidney, unspecified laterality (HCC) Malignant neoplasm of kidney excluding renal pelvis, unspecified laterality (HCC) Procedures CT ABD/PEL W IVCON CT ABD & PELVIS W/CONTRAST Adriana Hodge MD [address] [place] [address] Scan [facility] [address] [place] [address] Referral ID Status Reason Start Date Expiration Date V isits Requested Visits Authorized [id number] Closed Auto-Generate d Referral 06/26/2021 08/10/2021 1 1 Specialty Diagnoses / Procedures Referred By Contac t Referred To Contact MR IMAGING Diagnoses Malignant neoplasm of kidney excluding renal pelvis, unspecified laterality (HCC) Renal cell carcinoma, unspecified laterality (HCC) Procedures MRI BRAIN WO/W IVCON MRI BRAIN BRAIN STEM W/O W/CONTRAST MATERIAL Kenneth Chester MD [address] [place] [address] Mr Imaging Referral ID Status Reason Start Date Expiration Date Visits Requested Visits Authorized [id number] Authorized Auto-Generat ed Referral 07/14/2021 08/28/2021 1 1 Specialty Diagnoses / Procedures Referred By Contac t Referred To Contact CT IMAGING Diagnoses Malignant neoplasm of right kidney, except renal pelvis (HCC) Renal cell carcinoma, unspecified laterality (HCC) Procedures CT CHEST W IVCON DIAGNOSTIC COMPUTED TOMOGRAPHY THORAX W/CONTRAST Kenneth Chester MD [address] [place] [address] Ct Imaging Referral ID Status Reason Start Date Expiration Date V isits Requested Visits Authorized [id number] Closed Auto-Generate d Referral 07/14/2021 08/28/2021 1 1 Referral ID Status Reason Start Date Expiration Date V isits Requested Visits Authorized [id number] Closed Auto-Generate d Referral 07/14/2021 08/28/2021 1 1 Specialty Diagnoses / Procedures Referred By Contac t Referred To Contact CT IMAGING Diagnoses Malignant neoplasm of right kidney, except renal pelvis (HCC) Malignant neoplasm of kidney excluding renal pelvis, unspecified laterality (HCC) Procedures CT ABD/PEL W IVCON CT ABD & PELVIS W/CONTRAST Kenneth Chester MD [address] [place] [address] Ct Imaging Referral ID Status Reason Start Date Expiration Date Visits Requested Visits Authorized [id number] Pending Review Auto-Generat ed Referral 07/28/2021 08/27/2022 1 1 Specialty Diagnoses / Procedures Referred By Contac t Referred To Contact MR IMAGING Diagnoses Other specified disorders of kidney and ureter Procedures MRI KIDNEY WO/W IVCON MRI ABDOMEN W/O & W/CONTRAST MATERIAL Godfrey Ohara APRN.CNP [address] [place], [address] [address] Mr Imaging Referral ID Status Reason Start Date Expiration Date Visits Requested Visits Authorized [id number] Pending Review Auto-Generat ed Referral 08/08/2021 09/07/2022 1 1 Specialty Diagnoses / Procedures Referred By Contac t Referred To Contact CT IMAGING Diagnoses Malignant neoplasm of right kidney, except renal pelvis (HCC) Malignant neoplasm of kidney excluding renal pelvis, unspecified laterality (HCC) Procedures CT CHEST W IVCON DIAGNOSTIC COMPUTED TOMOGRAPHY THORAX W/CONTRAST Stephany Ceballos PA-C [address] [place] [address] Ct Imaging Referral ID Status Reason Start Date Expiration Date Visits Requested Visits Authorized [id number] Pending Review Auto-Generat ed Referral 08/21/2021 09/19/2022 1 1 Specialty Diagnoses / Procedures Referred By Contac t Referred To Contact CT IMAGING Diagnoses Malignant neoplasm of right kidney, except renal pelvis (HCC) Malignant neoplasm of kidney excluding renal pelvis, unspecified laterality (HCC) Procedures CT ABD/PEL W IVCON CT ABD & PELVIS W/CONTRAST Stephany Ceballos PA-C [address] [place] [address] Ct Imaging Referral ID Status Reason Start Date Expiration Date Visits Requested Visits Authorized [id number] Pending Review Auto-Generat ed Referral 08/21/2021 09/19/2022 1 1 Specialty Diagnoses / Procedures Referred By Contac t Referred To Contact CT IMAGING Diagnoses Malignant neoplasm of right kidney, except renal pelvis (HCC) Procedures CT CHEST W IVCON DIAGNOSTIC COMPUTED TOMOGRAPHY THORAX W/CONTRAST Godfrey Ohara, SECTION [employer] [address] [place] [address] Ct Imaging Referral ID Status Reason Start Date Expiration Date Visits Requested Visits Authorized [id number] Pending Review Auto-Generat ed Referral 10/16/2021 09/26/2022 1 1 Specialty Diagnoses / Procedures Referred By Contac t Referred To Contact CT IMAGING Diagnoses Malignant neoplasm of right kidney, except renal pelvis (HCC) Procedures CT ABD/PEL W IVCON CT ABD & PELVIS W/CONTRAST Godfrey Ohara, [employer] [address] [place] [address] Ct Imaging Referral ID Status Reason Start Date Expiration Date Visits Requested Visits Authorized [id number] Pending Review Auto-Generat ed Referral 10/16/2021 09/26/2022 1 1 Specialty Diagnoses / Procedures Referred By Contac t Referred To Contact CT IMAGING Diagnoses SOB (shortness of breath) Procedures CT CHEST W IVCON PE DIAGNOSTIC COMPUTED TOMOGRAPHY THORAX W/CONTRAST Daksha Melo PA-C [address] [place] [address] Ct Imaging Referral ID Status Reason Start Date Expiration Date Visits Requested Visits Authorized [id number] Pending Review Auto-Generat ed Referral 09/02/2021 10/02/2022 1 1 Specialty Diagnoses / Procedures Referred By Contac t Referred To Contact CT IMAGING Diagnoses Malignant neoplasm of right kidney, except renal pelvis (HCC) Procedures CT CHEST W IVCON DIAGNOSTIC COMPUTED TOMOGRAPHY THORAX W/CONTRAST Adriana Hodge MD [address] [place] [address] Ct Imaging Referral ID Status Reason Start Date Expiration Date Visits Requested Visits Authorized [id number] Closed Financial Clearance Required - OON Payor [...] ABD & PELVIS [place] [address] [place] [address] [address] [address] Imaging Referral ID Status Reason Start Date Expiration Date Visits Requested Visits Authorized [id number] Closed Financial Clearance Required - OON Payor OON Notification Letter Clearance Not Met - Pt Rescheduled/Canc elled/Chose Not to Proceed OON/Self Pay Override 10/22/2021 11/21/2022 1 0 Specialty Diagnoses / Procedures Referred By Contac t Referred To Contact Diagnoses Renal cell carcinoma of right kidney (HCC) Procedures REFER TO PACC - PRE ANESTHESIA CONSULTATION CLINIC OFFICE/OUTPATIENT [facility] MDM 60-74 MINUTES Adriana Hodge MD [address] [place] [address] [place] [address] Referral ID Status Reason Start Date Expiration Date V isits Requested Visits Authorized [id number] Denied PCP Requested Referral 12/30/2021 12/30/2022 1 0 Specialty Diagnoses / Procedures Referred By Contac t Referred To Contact [facility] Diagnoses Renal cell carcinoma of right kidney (HCC) Procedures ECG COMPLETE ECG ROUTINE ECG W/LEAST 12 LDS W/I&R Adriana Hodge MD [address] [place] [address] [facility] [address] [place] [address] Referral ID Status Reason Start Date Expiration Date V isits Requested Visits Authorized [id number] Denied Auto-Generate d Referral 12/30/2021 12/30/2022 1 0 Medications Administered Section Inactive Administered Medications - up to 3 most recent administrations Medication Order MAR Action Action Date Dose Rate Site INV CABOZANTINIB 40 mg TABLET ([facility] 1820/20-983) 40 mg, ORAL, ONCE, [...] Action Date Dose Rate Site INV NIVOLUMAB ([facility] 1820/20-983) 480 mg in NaCl [...] Rate Site INV CABOZANTINIB 20 mg TABLET ([facility] 1820/20-983) 20 mg, ORAL, ONCE, [...] CHRONIC HEART FAILURE AECHF AECHF AECHF [facility] 04-13-22 CHF and AFIB (NO [...] CHRONIC HEART FAILURE AECHF AECHF AECHF [facility] 04-13-22 CHF and AFIB (NO [...] bone Chief Complaint AECHF AECHF AECHF [facility] 04-13-22 CHF and AFIB (NO [...] (congestive heart failure) September 2:24pm Chief Complaint Admit Date 6 M FU August 14, 2024 12:55 [...] LAB ORDERS October 02, 2024 3:21 pm DIARRHEA, HYPOTENSION, HX OF RIGHT NEPHR ECTOMY October 19, 2024 4:52am Reason for Visit Admit Date Chest pain August 14, 2024 12:55 pm [...] pm CHF (congestive heart failure) September 2:24pm Chronic anticoagulation October 19 4:52am Diarrhea October 19, 2024 4: 52am Hypotension due to hypovolemia October 192024 4:52am Obesity (BMI 30.0-34.9) October 19 4:52am Chronic atrial fibrillation October 19, 2024 4:52am CKD (chronic kidney disease) stage 3, GF R 30-59 ml/min October 19, 2024 4:52am Metastatic renal cell carcinoma to bone October 19, 2024 4:52am Renal cell cancer October 19, 2024 4: 52am Chief Complaint Admit Date 6 M August 14, 2024 12:55 pm TYPE 2 DM August 14, 2024 2:52p m AFIB September 25, 2024 6:24 am EORDERS September 25, 2024 3:19 pm Atrial fibrillation September 25, 2024 5:46 pm Amb Documentation September 26, 2024 7:49 am Amb Documentation September 26, 2024 7:51 am 6-8 W FU October 02, 2024 2:24 pm INT LAB ORDERS October 02, 2024 3:21 pm DIARRHEA, HYPOTENSION, HX OF RIGHT NEPHR ECTOMY October 19, 2024 4:52am DIARRHEA, HYPOTENSION, HX OF RIGHT NEPHR ECTOMY October 20, 2024 3:36pm Chief Complaint Admit Date 6 M FU August 14, 2024 12:55 [...] LAB ORDERS October 02, 2024 3:21 pm DIARRHEA, HYPOTENSION, HX OF RIGHT NEPHR ECTOMY October 19, 2024 4:52am DIARRHEA, HYPOTENSION, HX OF RIGHT NEPHR ECTOMY October 20, 2024 3:36pm DIARRHEA, HYPOTENSION, HX OF RIGHT NEPHR ECTOMY October 21, 2024 2:41pm Hospital October 30, 2024 2: 26pm Reason for Visit Admit Date Chest pain August 14, 2024 12:55 pm [...] pm CHF (congestive heart failure) September 2:24pm Chronic anticoagulation October 19 4:52am Hypotension due to hypovolemia October 192024 4:52am Obesity (BMI 30.0-34.9) October 19 4:52am Chronic atrial fibrillation October 19, 2024 4:52am CKD (chronic kidney disease) stage 3, GF R 30-59 ml/min October 19, 2024 4:52am Metastatic renal cell carcinoma to bone October 19, 2024 4:52am Renal cell cancer October 19, 2024 4: 52am Diarrhea October 19, 2024 4: 52am Diarrhea October 30, 2024 2: 26pm Personal history of colonic polyps Augus t 2024 2:26pm Chief Complaint Metastatic kidney cancer Additional Source Comments (unrecognized sect ion and content) No Status Records FoundNo Status Records FoundNo Status Records FoundNo Status Records FoundNo Status Records FoundNo Status Records FoundNo Status Records FoundNo Status Records FoundNo Status Records FoundNo Status Records Found INFORMATION SOURCE (unrecogn ized section and content) DATE CREATED AUTHOR 11/22/2019 [facility] DATE CREATED AUTHOR AUTHOR'S ORGANIZ ATION 02/06/2020 [facility] DATE CREATED AUTHOR AUTHOR'S ORGANIZ ATION 12/10/2021 [facility] DATE CREATED AUTHOR AUTHOR'S ORGANIZ ATION 02/05/2022 [facility] DATE CREATED AUTHOR AUTHOR'S ORGANIZ ATION 03/17/2022 [facility] DATE CREATED AUTHOR AUTHOR'S ORGANIZ ATION 04/04/2022 [facility] DATE CREATED AUTHOR AUTHOR'S ORGANIZ ATION 04/25/2022 [facility] DATE CREATED AUTHOR AUTHOR'S ORGANIZ ATION 05/18/2022 [facility] DATE CREATED AUTHOR AUTHOR'S ORGANIZ ATION 07/19/2022 [facility] DATE CREATED AUTHOR AUTHOR'S ORGANIZ ATION 11/10/2024 [facility] Care Teams (unrecognized sec tion and [...] Primary Care Provider Activ e Dr. Kassy Badna MD Emergency Provider Active Dr. Alicia Dukes [...] Status: Inactive Member Role Status Dates Dr. Jsoe Ramon Turner MD Primary Care Provider Activ [...] Wei MD Other Provider Active Dr. Carol Aram , DO Attending Provider Active Team Status: [...] Siri Harris MD EMERGENCY Active Start: Ap ril 2021 Family Physician Unavailable FAMILY Active Start: June 19, 2021 MIYA YANEZ Next of Kin Active Start: June 19, 2021 Hoseman Relationship Specialty [place] [address] [place] [address] PCP - General Internal Medicine 10/10/18 Hoseman Relationship Specialty [place] [address] [place] [address] PCP - General Internal Medicine 10/10/18 Hoseman Relationship Specialty [place] [address] [place] [address] PCP - General Internal Medicine 10/10/18 Hoseman Relationship Specialty Start [place] [address] [place] [address] PCP - General Internal Medicine 10/10/18 Hoseman Relationship Specialty Start [place] [address] [place] [address] PCP - General Internal Medicine 10/10/18 Hoseman Relationship Specialty Start [place] [address] [place] [address] PCP - General Internal Medicine 10/10/18 Hoseman Relationship Specialty Start [place] [address] [place] [address] PCP - General Internal Medicine 10/10/18 Hoseman Relationship Specialty Start [place] [address] [place] [address] PCP - General Internal Medicine 10/10/18 Hoseman Relationship Specialty Start [place] [address] [place] [address] PCP - General Internal Medicine 10/10/18 Hoseman Relationship Specialty Start [place] [address] [place] [address] PCP - General Internal Medicine 10/10/18 Hoseman Relationship Specialty Start Date End Date Roc[place], [place] [address] [place] [address] PCP - General Internal Medicine 10/10/18 Hoseman Relationship Specialty Start [place] [address] [place] [address] PCP - General Internal Medicine 10/10/18 Hoseman Relationship Specialty Start [place] [address] [place] [address] PCP - General Internal Medicine 10/10/18 Hoseman Relationship Specialty [place] [address] [place] [address] PCP - General Internal Medicine 10/10/18 Hoseman Relationship Specialty Start Date End Date Daksha Turner MD [address] [place] [address], [place] [address] PCP - General Family Practice 07/18/21 Hoseman Relationship Specialty Start Date End Date Daksha Turner MD [address] [place] [address], [place] [address] PCP - General Family Practice 07/18/21 Hoseman Relationship Specialty Start Date End Date Daksha Turner MD [address] [place] [address], [place] [address] PCP - General Family Practice 07/18/21 Hoseman Relationship Specialty Start Date End Date Daksha Turner MD [address] [place] [address], [place] [address] PCP - General Family Practice 07/18/21 Hoseman Relationship Specialty Start Date End Date Daksha Turner MD [address] [place] [address], [place] [address] PCP - General Family Practice 07/18/21 Hoseman Relationship Specialty Start Date End Date Daksha Turner MD [address] [place] [address] PCP - General Family Practice 07/18/21 Hoseman Relationship Specialty Start Date End Date Daksha Turner MD [address] [place] [address] PCP - General Family Practice 07/18/21 Hoseman Relationship Specialty Start Date End Date Daksha Turner MD [address] [place] [address] PCP - General Family Practice 07/18/21 Hoseman Relationship Specialty Start Date End Date Daksha Turner MD [address] [place] [address] PCP - General Family Practice 07/18/21 Hoseman Relationship Specialty Start Date End Date Daksha Turner MD [address] [place] [address] PCP - General Family Practice 07/18/21 Hoseman Relationship Specialty Start Date End Date Daksha Turner MD [address] [place] [address] PCP - General Family Practice 07/18/21 Hoseman Relationship Specialty Start Date End Date Daksha Turner MD [address] [place] [address] PCP - General Family Practice 07/18/21 Hoseman Relationship Specialty Start Date End Date Daksha Turner MD [address] [place] [address] PCP - General Family Practice 07/18/21 Hoseman Relationship Specialty Start Date End Date Daksha Turner MD [address] [place] [address] PCP - General Family Practice 07/18/21 Hoseman Relationship Specialty Start Date End Date Daksha Turner MD [address] [place] [address] PCP - General Family Practice 07/18/21 Hoseman Relationship Specialty Start Date End Date Daksha Turner MD [address] [place] [address] PCP - General Family Practice 07/18/21 Hoseman Relationship Specialty Start Date End Date Daksha Turner MD [address] [place] [address] PCP - General Family Practice 07/18/21 Hoseman Relationship Specialty Start Date End Date Daksha Turner MD [address] [place] [address] PCP - General Family Practice 07/18/21 Hoseman Relationship Specialty Start Date End Date Daksha Turner MD [address] [place] [address] PCP - General Family Practice 07/18/21 Hoseman Relationship Specialty Start Date End Date Daksha Turner MD [address] [place] [address] PCP - General Family Practice 07/18/21 Hoseman Relationship Specialty Start Date End Date Daksha Turner MD [address] [place] [address] PCP - General Family Practice 07/18/21 Hoseman Relationship Specialty Start Date End Date Daksha Turner MD [address] [place] [address] PCP - General Family Practice 07/18/21 Hoseman Relationship Specialty Start Date End Date Daksha Turner MD [address] [place] [address] PCP - General Family Practice 07/18/21 Hoseman Relationship Specialty Start Date End Date Daksha Turner MD [address] [place] [address] PCP - General Family Practice 07/18/21 Golias, Sary, [employer] Multimedia Production Assistant Oncology 08/11/21 Hoseman Relationship Specialty Start Date End Date Daksha Turner MD [address] [place] [address] PCP - General Family Practice 07/18/21 Golias, Sary, [employer] Multimedia Production Assistant Oncology 08/11/21 Hoseman Relationship Specialty Start Date End Date Daksha Turner MD [address] [place] [address] PCP - General Family Practice 07/18/21 Golias, Sary, [employer] Multimedia Production Assistant Oncology 08/11/21 Hoseman Relationship Specialty Start Date End Date Daksha Turner MD [address] [place] [address] PCP - General Family Practice 07/18/21 Golias, Sary, [employer] Multimedia Production Assistant Oncology 08/11/21 Hoseman Relationship Specialty Start Date End Date Daksha Turner MD [address] [place] [address] PCP - General Family Practice 07/18/21 Golias, Sary, [employer] Multimedia Production Assistant Oncology 08/11/21 Hoseman Relationship Specialty Start Date End Date Daksha Turner MD [address] [place] [address] PCP - General Family Practice 07/18/21 Sary Jonas, [facility] Multimedia Production Assistant Oncology 08/11/21 Lalo Acevedo MD [address] [place] [address] Primary Staff Physician Cardiology 08/19/21 Hoseman Relationship Specialty Start Date End Date Daksha Turner MD [address] [place], [place] [address] PCP - General Family Practice 07/18/21 Sary Jonas [facility] Multimedia Production Assistant Oncology 08/11/21 Lalo Acevedo MD [address] [place] [address] Primary Staff Physician Cardiology 08/19/21 Hoseman Relationship Specialty Start Date End Date Daksha Turner MD [address] [place], [place] [address] PCP - General Family Practice 07/18/21 Sary Jonas, [facility] Multimedia Production Assistant Oncology 08/11/21 Lalo Acevedo MD [address] [place] [address] Primary Staff Physician Cardiology 08/19/21 Hoseman Relationship Specialty Start Date End Date Daksha Turner MD [address] [place], [place] [address] PCP - General Family Practice 07/18/21 Sary Jonas [facility] Multimedia Production Assistant Oncology 08/11/21 Lalo Acevedo MD [address] [place] [address] Primary Staff Physician Cardiology 08/19/21 Hoseman Relationship Specialty Start Date End Date Daksha Turner MD [address] [facility] [place] [place] [id number] PCP - General Family Practice 07/18/21 Sary Jonas, [facility] Multimedia Production Assistant Oncology 08/11/21 Lalo Acevedo MD [address] [place] [address] Primary Staff Physician Cardiology 08/19/21 Hoseman Relationship Specialty Start Date End Date Daksha Turner MD [address] [place], [place] [address] PCP - General Family Practice 07/18/21 Sary Jonas, [facility] Multimedia Production Assistant Oncology 08/11/21 Lalo Acevedo MD [address] [place] [address] Primary Staff Physician Cardiology 08/19/21 Hoseman Relationship Specialty Start Date End Date Daksha Turner MD [address] [place] [address] PCP - General Family Practice 07/18/21 Sary Jonas, [facility] Multimedia Production Assistant Oncology 08/11/21 Lalo Acevedo MD [address] [place] [address] Primary Staff Physician Cardiology 08/19/21 Hoseman Relationship Specialty Start Date End Date Daksha Turner MD [address] [place] [address] PCP - General Family Practice 07/18/21 Sary Jonas, [facility] Multimedia Production Assistant Oncology 08/11/21 Lalo Acevedo MD [address] [place] [address] Primary Staff Physician Cardiology 08/19/21 Hoseman Relationship Specialty Start Date End Date Daksha Turner MD [address] [facility] [place] [address] PCP - General Family Practice 07/18/21 Sary Jonas, [facility] Multimedia Production Assistant Oncology 08/11/21 Lalo Acevedo MD [address] [place], [place] [id number] Primary Staff Physician Cardiology 08/19/21 Hoseman Relationship Specialty Start Date End Date Daksha Turner MD [address] [facility] [place], [place] [address] PCP - General Family Practice 07/18/21 Sary Jonas, [facility] Multimedia Production Assistant Oncology 08/11/21 Lalo Acevedo MD [address] [place], [place] [id number] Primary Staff Physician Cardiology 08/19/21 Hoseman Relationship Specialty Start Date End Date Dakhsa Turner MD [address] [place], [place] [address]41 PCP - General Family Practice 07/18/21 Sary Jonas, [facility] Multimedia Production Assistant Oncology 08/11/21 Lalo Acevedo MD [address] [place], [place] [id number] Primary Staff Physician Cardiology 08/19/21 Rahul Knight, RN Research Nurse 09/03/21 Hoseman Relationship Specialty Start Date End Date Daksha Turner MD [address] [place], [place] [id number] PCP - General Family Practice 07/18/21 Sary Jonas, [facility] Multimedia Production Assistant Oncology 08/11/21 aLlo Acevedo MD [address] [place], [place] [id number] Primary Staff Physician Cardiology 08/19/21 Rahul Knight, RN Research Nurse 09/03/21 Hoseman Relationship Specialty Start Date End Date Daksha Turner MD [address] [facility] [place], [place] [address] PCP - General Family Practice 07/18/21 Sary Jonas, [facility] Multimedia Production Assistant Oncology 08/11/21 Lalo Acevedo MD [address] [place] [address] Primary Staff Physician Cardiology 08/19/21 Rahul Knight, RN Research Nurse 09/03/21 Hoseman Relationship Specialty Start Date End Date Daksha Turner MD [address] [place] [address] PCP - General Family Practice 07/18/21 Sary Jonas, [facility] Multimedia Production Assistant Oncology 08/11/21 Lalo Acevedo MD [address] [place] [address] Primary Staff Physician Cardiology 08/19/21 Rahul Knight, RN Research Nurse 09/03/21 Hoseman Relationship Specialty Start Date End Date Daksha Turner MD [address] [facility] [place] [address] PCP - General Family Practice 07/18/21 Sary Jonas, [facility] Multimedia Production Assistant Oncology 08/11/21 Lalo Acevedo MD [address] [place] [address] Primary Staff Physician Cardiology 08/19/21 Rahul Knight, RN Research Nurse 09/03/21 Hoseman Relationship Specialty Start Date End Date Daksha Turner MD [address] [facility] [place] [address] PCP - General Family Practice 07/18/21 Sary Jonas, [facility] Multimedia Production Assistant Oncology 08/11/21 Lalo Acevedo MD [address] [place] [address] Primary Staff Physician Cardiology 08/19/21 Rahul Knight, RN Research Nurse 09/03/21 Safia Carr, [facility] [address] [place] [address] Transitional Care Pharmacist Pharmacy 09/29/21 10/30/21 Hoseman Relationship Specialty Start Date End Date Daksha Turner MD [address] [place], [place] [id number] PCP - General Family Practice 07/18/21 [facility] Mult[facility] Production Assistant Oncology 08/11/21 Lalo Acevedo MD [address] [place], [place] [id number] Primary Staff Physician Cardiology 08/19/21 Rahul Knight, RN Research Nurse 09/03/21 Safia aCrr, [facility] [address] [place], [place] [phone] Transitional Care Pharmacist Pharmacy 09/29/21 10/30/21 Hoseman Relationship Specialty Start Date End Date Daksha Turner MD [address] [facility] [place] [place] [id number] PCP - General Family Practice 07/18/21 [facility] Multimedia Production Assistant Oncology 08/11/21 Lalo Acevedo MD [address] [place], [place] [id number] Primary Staff Physician Cardiology 08/19/21 Rahul Knight, RN Research Nurse 09/03/21 Hoseman Relationship Specialty Start Date End Date Daksha Turner MD [address] [place], [place] [id number] PCP - General Family Practice 07/18/21 Sary Jonas, [facility] Multimedia Production Assistant Oncology 08/11/21 Lalo Acevedo MD [address] [place] [address] Primary Staff Physician Cardiology 08/19/21 Rahul Knight, RN Research Nurse 09/03/21 Safia Carr, [facility] [address] [place] [address] Transitional Care Pharmacist Pharmacy 09/29/21 10/30/21 Hoseman Relationship Specialty Start Date End Date Daksha Turner MD [address] [place] [address] PCP - General Family Practice 07/18/21 Sary Jonas, [facility] Multimedia Production Assistant Oncology 08/11/21 Lalo Acevedo MD [address] [place] [address] Primary Staff Physician Cardiology 08/19/21 Rahul Knight, RN Research Nurse 09/03/21 Safia Carr, [facility] [address] [place] [address] Transitional Care Pharmacist Pharmacy 09/29/21 10/30/21 Hoseman Relationship Specialty Start Date End Date Daksha Turner MD [address] [place] [address] PCP - General Family Practice 07/18/21 Sayr Jonas, [facility] [facility] Multimedia Production Assistant Oncology 08/11/21 Lalo Acevedo MD [address] [place], [place] [id number] Primary Staff Physician Cardiology 08/19/21 Rahul Knight, RN Research Nurse 09/03/21 Safia Carr, [facility] [address] [place] [address] Transitional Care Pharmacist Pharmacy 09/29/21 10/30/21 Hoseman Relationship Specialty Start Date End Date Daksha Turner MD [address] [place], [place] [id number] PCP - General Family Practice 07/18/21 Sary Jonas, [facility] Multimedia Production Assistant Oncology 08/11/21 Lalo Acevedo MD [address] [place] [address] Primary Staff Physician Cardiology 08/19/21 Rahul Knight, RN Research Nurse 09/03/21 Safia Carr, [facility] [address] [place] [address] Transitional Care Pharmacist Pharmacy 09/29/21 10/30/21 Hoseman Relationship Specialty Start Date End Date Daksha Turner MD [address] [place], [place] 536521 PCP - General Family Practice 07/18/21 Sary Jonas, [facility] Multimedia Production Assistant Oncology 08/11/21 Lalo Acevedo MD [address] [place] [address] Primary Staff Physician Cardiology 08/19/21 aRhul Knight, RN Research Nurse 09/03/21 Safia Carr, [facility] [address] [place] [address] Transitional Care Pharmacist Pharmacy 09/29/21 10/30/21 Hoseman Relationship Specialty Start Date End Date Daksha Turner MD [address] [place], [place] [id number] PCP - General Family Practice 07/18/21 Sary Jonas, [facility] Multimedia Production Assistant Oncology 08/11/21 Lalo Acevedo MD [address] [place] [address] Primary Staff Physician Cardiology 08/19/21 Rahul Knight, RN Research Nurse 09/03/21 Hoseman Relationship Specialty Start Date End Date Daksha Turner MD [address] [place], [place] [id number] PCP - General Family Practice 07/18/21 Sary Jonas, [facility] Multimedia Production Assistant Oncology 08/11/21 Lalo Acevedo MD [address] [place] [address] Primary Staff Physician Cardiology 08/19/21 Rahul Knight, RN Research Nurse 09/03/21 Safia Carr, [facility] [address] [place], [place] [phone] Transitional Care Pharmacist Pharmacy 09/29/21 10/30/21 Hoseman Relationship Specialty Start Date End Date Daksha Turner MD [address] [place], [place] [id number] PCP - General Family Practice 07/18/21 Sary Jonas, [facility] Multimedia Production Assistant Oncology 08/11/21 Lalo Acevedo MD [address] [place] [address] Primary Staff Physician Cardiology 08/19/21 Rahul Knight, RN Research Nurse 09/03/21 Hoseman Relationship Specialty Start Date End Date Daksha Turner MD [address] [place], [place] [id number] PCP - General Family Practice 07/18/21 Sary Jonas, [facility] Multimedia Production Assistant Oncology 08/11/21 Lalo Acevedo MD [address] [place] [address] Primary Staff Physician Cardiology 08/19/21 Rahul Kngiht, RN Research Nurse 09/03/21 Jiavu Safia, [facility] [address] [place], [place] [phone] Transitional Care Pharmacist Pharmacy 09/29/21 10/30/21 Hoseman Relationship Specialty Start Date End Date Daksha Turner MD [address] [place], [place] [id number] PCP - General Family Practice 07/18/21 Sary Jonas, [facility] Multimedia Production Assistant Oncology 08/11/21 Lalo Acevedo MD [address] [place] [address] Primary Staff Physician Cardiology 08/19/21 Rahul Knight, RN Research Nurse 09/03/21 Hoseman Relationship Specialty Start Date End Date Daksha Turner MD [address] [place], [place] [id number] PCP - General Family Practice 07/18/21 [facility] Production Assistant Oncology 08/11/21 Lalo Acevedo MD [address] [place], [place] [id number] Primary Staff Physician Cardiology 08/19/21 Rahul Knight, RN Research Nurse 09/03/21 Hoseman Relationship Specialty Start Date End Date Daksha Turner MD [address] [place], [place] [id number] PCP - General Family Practice 07/18/21 [facility] Multimedia Production Assistant Oncology 08/11/21 Lalo Acevedo MD [address] [place] [address] Primary Staff Physician Cardiology 08/19/21 Rahul Knight, RN Research Nurse 09/03/21 Hoseman Relationship Specialty Start Date End Date Daksha Turner MD [address] [place], [place] 953821 PCP - General Family Medicine 07/18/21 Sary Jonas, [facility] Multimedia Production Assistant Oncology 08/11/21 Lalo Acevedo MD [address] [place] [address] Primary Staff Physician Cardiology 08/19/21 Rahul Knight, RN Research Nurse 09/03/21 Hoseman Relationship Specialty Start Date End Date Daksha Turner MD [address] [place], [place] [id number] PCP - General Family Medicine 07/18/21 Sary Jonas, [facility] Multimedia Production Assistant Oncology 08/11/21 Lalo Acevedo MD [address] [place] [address] Primary Staff Physician Cardiology 08/19/21 Rahul Knight, RN Research Nurse 09/03/21 Hoseman Relationship Specialty Start Date End Date Daksha Turner MD [address] [place], [place] [id number] PCP - General Family Medicine 07/18/21 Sary Jonas, [facility] Multimedia Production Assistant Oncology 08/11/21 Lalo Acevedo MD [address] [place] [address] Primary Staff Physician Cardiology 08/19/21 Rahul Knight, RN Research Nurse 09/03/21 Haylee Wilburn MD [address] [place] [address] Oncology 12/08/21 Alfredo Xavier MD [address] [place] [address] Radiation Oncology 12/08/21 Hoseman Relationship Specialty Start Date End Date Daksha Turner MD [address] [place], [place] 806361 PCP - General Family Medicine 07/18/21 Sary Jonas, [facility] Multimedia Production Assistant Oncology 08/11/21 Lalo Acevedo MD [address] [place], [place] [phone] Primary Staff Physician Cardiology 08/19/21 Rahul Knight, RN Research Nurse 09/03/21 Haylee Wilburn MD [address] [place], [place] [id number] Oncology 12/08/21 Alfredo Xavier MD [address] [facility] [place] [address] Radiation Oncology 12/08/21 Hoseman Relationship Specialty Start Date End Date Daksha Turner MD [address] [place] [place], [place] 9832[address] PCP - General Family Medicine 07/18/21 Sary Jonas, [facility] Multimedia Production Assistant Oncology 08/11/21 Lalo Acevedo MD [address] [place] [address] Primary Staff Physician Cardiology 08/19/21 Rahul Knight, RN Research Nurse 09/03/21 Haylee Wilburn MD [address] [place], [place] [id number] Oncology 12/08/21 Alfredo Xavier MD [address] [facility] [place] [phone] Radiation Oncology 12/08/21 Hoseman Relationship Specialty Start Date End Date Daksha Turner MD [address] [place] [address] PCP - General Family Medicine 07/18/21 Sary Jonas, [facility] Multimedia Production Assistant Oncology 08/11/21 Lalo Acevedo MD [address] [place] [address] Primary Staff Physician Cardiology 08/19/21 Rahul Knight, RN Research Nurse 09/03/21 Haylee Wilburn MD [address] [place] [address] Oncology 12/08/21 [place] [address] [place] [address] [address] [place] [phone] Radiation Oncology 12/08/21 Hoseman Relationship Specialty Start Date End Date Daksha Turner MD [address] [place] [address] PCP - General Family Medicine 07/18/21 Sary Jonas, [facility] Multimedia Production Assistant Oncology 08/11/21 Lalo Acevedo MD [address] [place] [address] Primary Staff Physician Cardiology 08/19/21 Rahul Knight, RN Research Nurse 09/03/21 Haylee Wilburn MD [address] [place], [place] [id number] [phone] Oncology 12/08/21 Alfredo Xavier MD [address] [place] [address] Radiation Oncology 12/08/21 Hoseman Relationship Specialty Start Date End Date Daksha Turner MD [address] [facility] [place], [place] [id number] PCP - General Family Medicine 07/18/21 Sary Jonas, [facility] Multimedia Production Assistant Oncology 08/11/21 Lalo Acevedo MD [address] [place], [place] [phone] Primary Staff Physician Cardiology 08/19/21 Rahul Knight, RN Research Nurse 09/03/21 Haylee Wilburn MD [address] [place], [place] [id number] Oncology 12/08/21 [place] [address] [place] [address] [place] [phone] Radiation Oncology 12/08/21 Hoseman Relationship Specialty Start Date End Date Daksha Turner MD [address] [facility] [place] [address] PCP - General Family Medicine 07/18/21 Sary Jonas, [facility] Multimedia Production Assistant Oncology 08/11/21 Lalo Acevedo MD [address] [place] [address] Primary Staff Physician Cardiology 08/19/21 Rahul Knight, RN Research Nurse 09/03/21 Haylee Wilubrn MD [address] [place], [place] [phone] Oncology 12/08/21 Alfredo Xavier MD [address] [facility] [place] [phone] Radiation Oncology 12/08/21 Hoseman Relationship Specialty Start Date End Date Daksha Turner MD [address] [facility] [place], [place] [id number] PCP - General Family Medicine 07/18/21 Sary Jonas [facility] Multimedia Production Assistant Oncology 08/11/21 Lalo Acevedo MD [address] [place] [address] Primary Staff Physician Cardiology 08/19/21 Rahul Knight, RN Research Nurse 09/03/21 Haylee Wilburn MD [address] [place], [place] 1776208 Oncology 12/08/21 [place] [address] [place] [phone] Radiation Oncology 12/08/21 Hoseman Relationship Specialty Start Date End Date Daksha Turner MD [address] [facility] [place], [place] [phone] PCP - General Family Medicine 07/18/21 Sary Jonas [facility] Multimedia Production Assistant Oncology 08/11/21 Lalo Acevedo MD [address] [place] [address] Primary Staff Physician Cardiology 08/19/21 Rahul Knight, RN Research Nurse 09/03/21 Haylee Wilburn MD [address] [place] [address] Oncology 12/08/21 [place] [address] [place] [address] Radiation Oncology 12/08/21 Hoseman Relationship Specialty Start Date End Date Daksha Turner MD [address] [facility] [place], [place] [phone] PCP - General Family Medicine 07/18/21 Sary Jonas [facility] Multimedia Production Assistant Oncology 08/11/21 Lalo Acevedo MD [address] [place] [address] Primary Staff Physician Cardiology 08/19/21 Rahul Knight, RN Research Nurse 09/03/21 Haylee Wilburn MD [address] [place], [place] 8004408 Oncology 12/08/21 Alfredo Xavier MD [address] [facility] [place] [phone] Radiation Oncology 12/08/21 Sayra Tello MD [address] [place] [id number] Cardiology 02/12/22 Hoseman Relationship Specialty Start Date End Date Daksha Turner MD [address] [place] [address] PCP - General Family Medicine 07/18/21 Sary Jonas [facility] Multimedia Production Assistant Oncology 08/11/21 Lalo Acevedo MD [address] [place] [address] Primary Staff Physician Cardiology 08/19/21 Rahul Knight, RN Research Nurse 09/03/21 Haylee Wilburn MD [address] [place], [place] 5108608 Oncology 12/08/21 Alfredo Xavier MD [address] [place] [address] Radiation Oncology 12/08/21 Sayra Tello MD [address] [place], [place] 7981308 Cardiology 02/12/22 Hoseman Relationship Specialty Start Date End Date Daksha Turner MD [address] [place], [place] [id number] PCP - General Family Medicine 07/18/21 Sary Jonas, [facility] Multimedia Production Assistant Oncology 08/11/21 Lalo Acevedo MD [address] [place] [address] Primary Staff Physician Cardiology 08/19/21 Rahul Knight, RN Research Nurse 09/03/21 Haylee Wilburn MD [address] [place] [address] Oncology 12/08/21 Alfredo Xavier MD [address] [facility] [place] [phone] Radiation Oncology 12/08/21 Sayra Tello MD [address] [facility] [place] [address] Cardiology 02/12/22 Hoseman Relationship Specialty Start Date End Date Daksha Turner MD [address] [place] [address] PCP - General Family Medicine 07/18/21 Sary Jonas, [facility] Multimedia Production Assistant Oncology 08/11/21 Lalo Acevedo MD [address] [place] [address] Primary Staff Physician Cardiology 08/19/21 Rahul Knight, RN Research Nurse 09/03/21 Haylee Wilburn MD [address] [place] [address] Oncology 12/08/21 Alfredo Xavier MD [address] [place] [address] Radiation Oncology 12/08/21 Sayra Tello MD [address] [place] [address] Cardiology 02/12/22 Hoseman Relationship Specialty Start Date End Date Daksha Turner MD [address] [place], [place] [phone] PCP - General Family Medicine 07/18/21 Sary Jonas, [facility] Multimedia Production Assistant Oncology 08/11/21 Lalo Acevdeo MD [address] [place] [address] Primary Staff Physician Cardiology 08/19/21 Rahul Knight, RN Research Nurse 09/03/21 Haylee Wilburn MD [address] [facility] [place] [address] Oncology 12/08/21 Alfredo Xavier MD [address] [place] [address] Radiation Oncology 12/08/21 Sayra Tello MD [address] [place] [address] Cardiology 02/12/22 Hoseman Relationship Specialty Start Date End Date Daksha Turner MD [address] [place], [place] 861371 PCP - General Family Medicine 07/18/21 Sary Jonas, [facility] Multimedia Production Assistant Oncology 08/11/21 Lalo Acevedo MD [address] [place] [address] Primary Staff Physician Cardiology 08/19/21 Rahul Knight, RN Research Nurse 09/03/21 Haylee Wilburn MD [address] [place], [place] 5920945 [phone] Oncology 12/08/21 Alfredo Xavier MD [address] [facility] [place] [address] Radiation Oncology 12/08/21 Sayra Tello MD [address] [place] [address] Cardiology 02/12/22 Hoseman Relationship Specialty Start Date End Date Daksha Turner MD [address] [facility] [place], [place] [id number] PCP - General Family Medicine 07/18/21 Sary Jonas, [facility] Multimedia Production Assistant Oncology 08/11/21 Lalo Acevedo MD [address] [place] [address] Primary Staff Physician Cardiology 08/19/21 Rahul Knight, RN Research Nurse 09/03/21 Haylee Wilburn MD [address] [place], [place] 6486431 [phone] Oncology 12/08/21 Alfredo Xavier MD [address] [facility] [place] [address] Radiation Oncology 12/08/21 Sayra Tello MD [address] [place] [address] Cardiology 02/12/22 Hoseman Relationship Specialty Start Date End Date Daksha Turner MD [address] [place], [place] [phone] PCP - General Family Medicine 07/18/21 Sary Jonas, [facility] Multimedia Production Assistant Oncology 08/11/21 Lalo Acevedo MD [address] [place] [address] Primary Staff Physician Cardiology 08/19/21 Rahul Knight, RN Research Nurse 09/03/21 Haylee Wilburn MD [address] [place] [address] Oncology 12/08/21 Alfredo Xavier MD [address] [place] [phone] Radiation Oncology 12/08/21 Sayra Tello MD [address] [place], [place] [phone] Cardiology 02/12/22 Hoseman Relationship Specialty Start Date End Date Daksha Turner MD [address] [place] [address] [id number] PCP - General Family Medicine 07/18/21 Sary Jonas [facility]SW Multimedia Production Assistant Oncology 08/11/21 Lalo Acevedo MD [address] [place] [address] Primary Staff Physician Cardiology 08/19/21 Rahul Knight, RN Research Nurse 09/03/21 Haylee Wilburn MD [address] [place] [address] Oncology 12/08/21 Alfredo Xavier MD [address] [place] [address] Radiation Oncology 12/08/21 Sayra Tello MD [address] [place] [address] Cardiology 02/12/22 Hoseman Relationship Specialty Start Date End Date Daksha Turner MD [address] [place] [address] PCP - General Family Medicine 07/18/21 Sary Jonas [facility] Multimedia Production Assistant Oncology 08/11/21 Lalo Acevedo MD [address] [place] [address] Primary Staff Physician Cardiology 08/19/21 Rahul Knight, RN Research Nurse 09/03/21 Haylee Wilburn MD [address] [place] [address] Oncology 12/08/21 Alfredo Xavier MD [address] [facility] [place] [address] Radiation Oncology 12/08/21 Sayra Tello MD [address] [place] 3346808 Cardiology 02/12/22 Hoseman Relationship Specialty Start Date End Date Daksha Turner MD [address] [place] [address] PCP - General Family Medicine 07/18/21 Sary Jonas, [facility] Multimedia Production Assistant Oncology 08/11/21 Lalo Acevedo MD [address] [place] [address] Primary Staff Physician Cardiology 08/19/21 Rahul Knight, RN Research Nurse 09/03/21 Haylee Wilburn MD [address] [place] [address] Oncology 12/08/21 Alfredo Xavier MD [address] [place] [address] Radiation Oncology 12/08/21 Sayra Tello MD [address] [facility] [place] 5863408 Cardiology 02/12/22 Hoseman Relationship Specialty Start Date End Date Daksha Turner MD [address] [facility] [place] [address] PCP - General Family Medicine 07/18/21 Sary Jonas, [facility] Multimedia Production Assistant Oncology 08/11/21 Lalo Acevedo MD [address] [place] [address] Primary Staff Physician Cardiology 08/19/21 Rahul Knight, RN Research Nurse 09/03/21 Haylee Wilburn MD [address] [place] [address] Oncology 12/08/21 Alfredo Xavier MD [address] [facility] [place] [phone] Radiation Oncology 12/08/21 Sayra Tello MD [address] [place] [address] Cardiology 02/12/22 Hoseman Relationship Specialty Start Date End Date Daksha Turner MD [address] [place] [address] PCP - General Family Medicine 07/18/21 Sary Jonas, [facility] Multimedia Production Assistant Oncology 08/11/21 Lalo Acevedo MD [address] [place], [place] [phone] Primary Staff Physician Cardiology 08/19/21 Rahul Knight, RN Research Nurse 09/03/21 Haylee Wilburn MD [address] [place] [id number] Oncology 12/08/21 Alfredo Xavier MD [address] [facility] [place] [phone] Radiation Oncology 12/08/21 Sayra Tello MD [address] [facility] [place] [facility] [address] [place] [place], [place] 0867508 Cardiology 02/12/22 Team Status: Active Member Role [...] Isidra Chiu , Attending Provider, Referring P rovider Active Hoseman Relationship Specialty Start Date End Date Daksha Turner MD [address] [facility] [place] [address] PCP - General Family Medicine 07/18/21 Sary Jonas LSW Multimedia Production Assistant Oncology 08/11/21 Lalo Acevedo MD [address] [place] [address] Primary Staff Physician Cardiology 08/19/21 Rahul Knight, RN Research Nurse 09/03/21 Haylee Wilburn MD [address] [facility] [place], [place] 6183208 Oncology 12/08/21 Alfredo Xavier MD [address] [place] [phone] Radiation Oncology 12/08/21 Hoseman Relationship Specialty Start Date End Date Daksha Turner MD [address] [place] [address] PCP - General Family Medicine 07/18/21 Sary Jonas LSW Multimedia Production Assistant Oncology 08/11/21 Lalo Acevedo MD [address] [place] [address] Primary Staff Physician Cardiology 08/19/21 Rahul Knight, RN Research Nurse 09/03/21 Haylee Wilburn MD [address] [place] [address] Oncology 12/08/21 Alfredo Xavier MD [address] [place] [address] Radiation Oncology 12/08/21 Sayra Tello MD [address] [place], [address] [address] Cardiology 02/12/22 Team Status: Active Member [...] 2024 End: August 14, 2024 Gini Couch PROCESS LINE OPERATOR, PROCESS LINE OPERATOR-C Attending Provider Active Start: August 14, 2024 End: August 14, 2024 Team Status: Inactive Member Role Status Dates Dr. Daksha Turner MD Primary Care Provider Acti ve Start: August 14, 2024 End: August 14, 2024 Gini Couch PROCESS LINE OPERATOR, PROCESS LINE OPERATOR-C Attending Provider Active Start: August 14, 2024 End: August 14, 2024 Gini Couch PROCESS LINE OPERATOR, PROCESS LINE OPERATOR-C Referring Provider Active Start: August 14, 2024 [...] Inactive Member Role/Relationship Status Dates Dr. Daksha Truner MD Primary Care Provider Acti ve Start: [...] 2024 End: August 14, 2024 Gini Couch PROCESS LINE OPERATOR, PROCESS LINE OPERATOR-C Attending Provider Active Start: August 14, 2024 End: August 14, 2024 Team Status: Inactive Member Role/Relationship Status Dates Dr. Daksha Turner MD Primary Care Provider Acti ve Start: August 14, 2024 End: August 14, 2024 Gini Couch PROCESS LINE OPERATOR, PROCESS LINE OPERATOR-C Attending Provider Active Start: August 14, 2024 End: August 14, 2024 Gini Couch PROCESS LINE OPERATOR, PROCESS LINE OPERATOR-C Referring Provider Active Start: August 14, 2024 [...] ve Start: September 25, 2024 Gini Couch PROCESS LINE OPERATOR, PROCESS LINE OPERATOR-C Attending Provider Active Start: September 25, 2024 Gini Couch PROCESS LINE OPERATOR, PROCESS LINE OPERATOR-C Referring Provider Active Start: September 25, 2024 [...] ve Start: September 25, 2024 Gini Couch PROCESS LINE OPERATOR, PROCESS LINE OPERATOR-C Referring Provider Active Start: September 25, 2024 Gini Couch PROCESS LINE OPERATOR, PROCESS LINE OPERATOR-C Other Provider Active Sta rt: September 25, 2024 Dr. Moises Gaona MD Attending Provider Active S tart: September 25, 2024 Team Status: Active Member Role/Relationship Status Dates Dr. Daksha Turner MD Primary Care Provider Acti ve Start: September 26, 2024 Gini Couch PROCESS LINE OPERATOR, PROCESS LINE OPERATOR-C Attending Provider Active Start: September 26, 2024 Team Status: Active Member Role/Relationship Status Dates Dr. Daksha Turner MD Primary Care Provider Acti ve Start: September 26, 2024 Gini Couch PROCESS LINE OPERATOR, PROCESS LINE OPERATOR-C Attending Provider Active Start: September 26, 2024 Team Status: Inactive Member Role/Relationship Status Dates Dr. Daksha Turner MD Primary Care Provider Acti ve Start: September 25, 2024 End: September 25, 2024 Gini Couch PROCESS LINE OPERATOR, PROCESS LINE OPERATOR-C Attending Provider Active Start: September 25, 2024 End: September 25, 2024 Gini Couch PROCESS LINE OPERATOR, PROCESS LINE OPERATOR-C Referring Provider Active Start: September 25, 2024 End: September 25, 2024 Team Status: Inactive Member Role/Relationship Status Dates Dr. Daksha Turner MD Primary Care Provider Acti ve Start: October 02, 2024 End: October 02, 2024 Dr. Daksha Turner MD Referring Provider Active Start: October 02, 2024 End: October 02, 2024 Gini Couch PROCESS LINE OPERATOR, PROCESS LINE OPERATOR-C Attending Provider Active Start: October 02, 2024 [...] 2024 End: August 14, 2024 Gini Couch PROCESS LINE OPERATOR, PROCESS LINE OPERATOR-C Attending Provider Active Start: August 14, 2024 End: August 14, 2024 Team Status: Inactive Member Role/Relationship Status Dates Dr. Daksha Turner MD Primary Care Provider Acti ve Start: August 14, 2024 End: August 14, 2024 Gini Couch PROCESS LINE OPERATOR, PROCESS LINE OPERATOR-C Attending Provider Active Start: August 14, 2024 End: August 14, 2024 Gini Couch PROCESS LINE OPERATOR, PROCESS LINE OPERATOR-C Referring Provider Active Start: August 14, 2024 [...] 2024 End: September 25, 2024 Gini Couch PROCESS LINE OPERATOR, PROCESS LINE OPERATOR-C Attending Provider Active Start: September 25, 2024 End: September 25, 2024 Gini Couch PROCESS LINE OPERATOR, PROCESS LINE OPERATOR-C Referring Provider Active Start: September 25, 2024 [...] ve Start: September 25, 2024 Gini Couch PROCESS LINE OPERATOR, PROCESS LINE OPERATOR-C Referring Provider Active Start: September 25, 2024 Gini Couch PROCESS LINE OPERATOR, PROCESS LINE OPERATOR-C Other Provider Active Sta rt: September 25, 2024 Dr. Moises Gaona MD Attending Provider Active S tart: September 25, 2024 Team Status: Active Member Role/Relationship Status Dates Dr. Daksha Turner MD Primary Care Provider Acti ve Start: September 26, 2024 Gini Couch PROCESS LINE OPERATOR, PROCESS LINE OPERATOR-C Attending Provider Active Start: September 26, 2024 Team Status: Inactive Member Role/Relationship Status Dates Dr. Daksha Turner MD Primary Care Provider Acti ve Start: October 02, 2024 End: October 02, 2024 Dr. Daksha Turner MD Referring Provider Active Start: October 02, 2024 End: October 02, 2024 Gini Couch PROCESS LINE OPERATOR, PROCESS LINE OPERATOR-C Attending Provider Active Start: October 02, 2024 End: October 02, 2024 Team Status: Inactive Member Role/Relationship Status Dates Dr. Daksha Turner MD Primary Care Provider Acti ve Start: October 02, 2024 End: October 02, 2024 Gini Couch PROCESS LINE OPERATOR, PROCESS LINE OPERATOR-C Attending Provider Active Start: October 02, 2024 End: October 02, 2024 Gini Couch PROCESS LINE OPERATOR, PROCESS LINE OPERATOR-C Referring Provider Active Start: October 02, 2024 End: October 02, 2024 Team Status: Inactive Member Role/Relationship Status Dates Dr. Daksha Turner MD Primary Care Provider Acti ve Start: August 14, 2024 End: August 14, 2024 Dr. Daksha Turner MD Referring Provider Active Start: August 14, 2024 End: August 14, 2024 Gini Couch PROCESS LINE OPERATOR, PROCESS LINE OPERATOR-C Attending Provider Active Start: August 14, 2024 End: August 14, 2024 Team Status: Inactive Member Role/Relationship Status Dates Dr. Daksha Turner MD Primary Care Provider Acti ve Start: August 14, 2024 End: August 14, 2024 Gini Couch PROCESS LINE OPERATOR, PROCESS LINE OPERATOR-C Attending Provider Active Start: August 14, 2024 End: August 14, 2024 Gini Couch PROCESS LINE OPERATOR, PROCESS LINE OPERATOR-C Referring Provider Active Start: August 14, 2024 [...] 2024 End: September 25, 2024 Gini Couch PROCESS LINE OPERATOR, PROCESS LINE OPERATOR-C Attending Provider Active Start: September 25, 2024 End: September 25, 2024 Gini Couch PROCESS LINE OPERATOR, PROCESS LINE OPERATOR-C Referring Provider Active Start: September 25, 2024 [...] ve Start: September 25, 2024 Gini Couch PROCESS LINE OPERATOR, PROCESS LINE OPERATOR-C Referring Provider Active Start: September 25, 2024 Gini Couch PROCESS LINE OPERATOR, PROCESS LINE OPERATOR-C Other Provider Active Sta rt: September 25, 2024 Dr. Moises Gaona MD Attending Provider Active S tart: September 25, 2024 Team Status: Active Member Role/Relationship Status Dates Dr. Daksha Turner MD Primary Care Provider Acti ve Start: September 26, 2024 Gini Couch PROCESS LINE OPERATOR, PROCESS LINE OPERATOR-C Attending Provider Active Start: September 26, 2024 Team Status: Active Member Role/Relationship Status Dates Dr. Daksha Turner MD Primary Care Provider Acti ve Start: September 26, 2024 Gini Couch PROCESS LINE OPERATOR, PROCESS LINE OPERATOR-C Attending Provider Active Start: September 26, 2024 Team Status: Inactive Member Role/Relationship Status Dates Dr. Daksha Turner MD Primary Care Provider Acti ve Start: October 02, 2024 End: October 02, 2024 Dr. Daksha Turner MD Referring Provider Active Start: October 02, 2024 End: October 02, 2024 Gini Couch PROCESS LINE OPERATOR, PROCESS LINE OPERATOR-C Attending Provider Active Start: October 02, 2024 End: October 02, 2024 Team Status: Inactive Member Role/Relationship Status Dates Dr. Daksha Turner MD Primary Care Provider Acti ve Start: October 02, 2024 End: October 02, 2024 Gini Couch PROCESS LINE OPERATOR, PROCESS LINE OPERATOR-C Attending Provider Active Start: October 02, 2024 End: October 02, 2024 Gini Couch PROCESS LINE OPERATOR, PROCESS LINE OPERATOR-C Referring Provider Active Start: October 02, 2024 End: October 02, 2024 Team Status: Active Member Role/Relationship Status Dates Dr. Daksha Turner MD Primary Care Provider Acti ve Start: October 19, 2024 Dr. Veronica Jackson MD Referring Provider Active S tart: October 19, 2024 Dr. Veronica Jackson MD Emergency Provider Active S tart: October 19, 2024 Dr. Rahul Chavez DO Admit Provider Active Start: October 19, 2024 Dr. Rahul Chavez DO Attending Provider Active Start: October 19, 2024 Team Status: Inactive Member Role/Relationship Status Dates Dr. Daksha Turner MD Primary Care Provider Acti ve Start: October 19, 2024 End: October 21, 2024 Dr. Veronica Jackson MD Referring Provider Active S tart: October 19, 2024 End: October 21, 2024 Dr. Veronica Jackson MD Emergency Provider Active S tart: October 19, 2024 End: October 21, 2024 Dr. Rahul Chavez DO Admit Provider Active Start: October 19, 2024 End: October 21, 2024 Dr. Rahul Chavez DO Other Provider Active Start: October 19, 2024 End: October 21, 2024 Dr. Marquise Padilla MD Attending Provider Active Start: October 19, 2024 End: October 21, 2024 Team Status: Active Member Role/Relationship Status Dates Dr. Daksha Turner MD Primary Care Provider Acti ve Start: October 20, 2024 Dr. Veronica Jackson MD Referring Provider Active S tart: October 20, 2024 Dr. Veronica Jackson MD Emergency Provider Active S tart: October 20, 2024 Dr. Rahul Chavez DO Admit Provider Active Start: October 20, 2024 Dr. Rahul Chavez DO Other Provider Active Start: October 20, 2024 Dr. Marquise Padilla MD Attending Provider Active Start: October 20, 2024 Dr. Marquise Padilla MD Other Provider Active Start: October 20, 2024 Team Status: Active Member Role/Relationship Status Dates Dr. Daksha Turner MD Primary Care Provider Acti ve Start: October 20, 2024 Dr. Veronica Jackson MD Emergency Provider Active S tart: October 20, 2024 Dr. Rahul Chavez DO Admit Provider Active Start: October 20, 2024 Dr. Rahul Chavez DO Other Provider Active Start: October 20, 2024 Dr. Marquise Padilla MD Attending Provider Active Start: October 20, 2024 Dr. Marquise Padilla MD Other Provider Active Start: October 20, 2024 Team Status: Active Member Role/Relationship Status Dates Dr. Daksha Turner MD Primary Care Provider Acti ve Start: October 21, 2024 Dr. Veronica Jackson MD Emergency Provider Active S tart: October 21, 2024 Dr. Rahul Chavez DO Admit Provider Active Start: October 21, 2024 Dr. Rahul Chavez DO Other Provider Active Start: October 21, 2024 Dr. Marquise Padilla MD Attending Provider Active Start: October 21, 2024 Dr. Marquise Padilla MD Other Provider Active Start: October 21, 2024 Team Status: Inactive Member Role/Relationship Status Dates Dr. Daksha Turner MD Primary Care Provider Acti ve Start: October 30, 2024 End: October 30, 2024 Dr. Daksha Turner MD Referring Provider Active Start: October 30, 2024 End: October 30, 2024 JARVIS Francisco Attending Provider Active Start: October 30, 2024 End: October 30, 2024 Goals (unrecognized section and content) Goals [...] or prosecute any alcohol or drug abuse patient.[facility] CenterIn the event this information is protected by the Federal Confidentiality of Alcohol and Drug Abuse Patient Records regulations: The Federal rules restrict any use of the information to criminally investigate or prosecute any alcohol or drug abuse patient.[facility] CenterIn the event this information is protected by the Federal Confidentiality of Alcohol and Drug Abuse Patient Records regulations: The Federal rules restrict any use of the information to criminally investigate or prosecute any alcohol or drug abuse patient.[facility] CenterIn the event this information is protected by the Federal Confidentiality of Alcohol and Drug Abuse Patient Records regulations: The Federal rules restrict any use of the information to criminally investigate or prosecute any alcohol or drug abuse patient.[facility] CenterIn the event this information is protected by the Federal Confidentiality of Alcohol and Drug Abuse Patient Records regulations: The Federal rules restrict any use of the information to criminally investigate or prosecute any alcohol or drug abuse patient.[facility] CenterIn the event this information is protected by the Federal Confidentiality of Alcohol and Drug Abuse Patient Records regulations: The Federal rules restrict any use of the information to criminally investigate or prosecute any alcohol or drug abuse patient.[facility] CenterIn the event this information is protected by the Federal Confidentiality of Alcohol and Drug Abuse Patient Records regulations: The Federal rules restrict any use of the information to criminally investigate or prosecute any alcohol or drug abuse patient.[facility] CenterIn the event this information is protected by the Federal Confidentiality of Alcohol and Drug Abuse Patient Records regulations: The Federal rules restrict any use of the information to criminally investigate or prosecute any alcohol or drug abuse patient.[facility] CenterIn the event this information is protected by the Federal Confidentiality of Alcohol and Drug Abuse Patient Records regulations: The Federal rules restrict any use of the information to criminally investigate or prosecute any alcohol or drug abuse patient.[facility] CenterIn the event this information is protected by the Federal Confidentiality of Alcohol and Drug Abuse Patient Records regulations: The Federal rules restrict any use of the information to criminally investigate or prosecute any alcohol or drug abuse patient.[facility] CenterIn the event this information is protected by the Federal Confidentiality of Alcohol and Drug Abuse Patient Records regulations: The Federal rules restrict any use of the information to criminally investigate or prosecute any alcohol or drug abuse patient.[facility] CenterIn the event this information is protected by the Federal Confidentiality of Alcohol and Drug Abuse Patient Records regulations: The Federal rules restrict any use of the information to criminally investigate or prosecute any alcohol or drug abuse patient.[facility] CenterIn the event this information is protected by the Federal Confidentiality of Alcohol and Drug Abuse Patient Records regulations: The Federal rules restrict any use of the information to criminally investigate or prosecute any alcohol or drug abuse patient.[facility] CenterIn the event this information is protected by the Federal Confidentiality of Alcohol and Drug Abuse Patient Records regulations: The Federal rules restrict any use of the information to criminally investigate or prosecute any alcohol or drug abuse patient.[facility] CenterIn the event this information is protected by the Federal Confidentiality of Alcohol and Drug Abuse Patient Records regulations: The Federal rules restrict any use of the information to criminally investigate or prosecute any alcohol or drug abuse patient.[facility] CenterIn the event this information is protected by the Federal Confidentiality of Alcohol and Drug Abuse Patient Records regulations: The Federal rules restrict any use of the information to criminally investigate or prosecute any alcohol or drug abuse patient.[facility] CenterIn the event this information is protected by the Federal Confidentiality of Alcohol and Drug Abuse Patient Records regulations: The Federal rules restrict any use of the information to criminally investigate or prosecute any alcohol or drug abuse patient.[facility] CenterIn the event this information is protected by the Federal Confidentiality of Alcohol and Drug Abuse Patient Records regulations: The Federal rules restrict any use of the information to criminally investigate or prosecute any alcohol or drug abuse patient.[facility] CenterIn the event this information is protected by the Federal Confidentiality of Alcohol and Drug Abuse Patient Records regulations: The Federal rules restrict any use of the information to criminally investigate or prosecute any alcohol or drug abuse patient.[facility] CenterIn the event this information is protected by the Federal Confidentiality of Alcohol and Drug Abuse Patient Records regulations: The Federal rules restrict any use of the information to criminally investigate or prosecute any alcohol or drug abuse patient.[facility] CenterIn the event this information is protected by the Federal Confidentiality of Alcohol and Drug Abuse Patient Records regulations: The Federal rules restrict any use of the information to criminally investigate or prosecute any alcohol or drug abuse patient.[facility] CenterIn the event this information is protected by the Federal Confidentiality of Alcohol and Drug Abuse Patient Records regulations: The Federal rules restrict any use of the information to criminally investigate or prosecute any alcohol or drug abuse patient.[facility] CenterIn the event this information is protected by the Federal Confidentiality of Alcohol and Drug Abuse Patient Records regulations: The Federal rules restrict any use of the information to criminally investigate or prosecute any alcohol or drug abuse patient.[facility] CenterIn the event this information is protected by the Federal Confidentiality of Alcohol and Drug Abuse Patient Records regulations: The Federal rules restrict any use of the information to criminally investigate or prosecute any alcohol or drug abuse patient.[facility] CenterIn the event this information is protected by the Federal Confidentiality of Alcohol and Drug Abuse Patient Records regulations: The Federal rules restrict any use of the information to criminally investigate or prosecute any alcohol or drug abuse patient.[facility] CenterIn the event this information is protected by the Federal Confidentiality of Alcohol and Drug Abuse Patient Records regulations: The Federal rules restrict any use of the information to criminally investigate or prosecute any alcohol or drug abuse patient.[facility] CenterIn the event this information is protected by the Federal Confidentiality of Alcohol and Drug Abuse Patient Records regulations: The Federal rules restrict any use of the information to criminally investigate or prosecute any alcohol or drug abuse patient.[facility] CenterIn the event this information is protected by the Federal Confidentiality of Alcohol and Drug Abuse Patient Records regulations: The Federal rules restrict any use of the information to criminally investigate or prosecute any alcohol or drug abuse patient.[facility] CenterIn the event this information is protected by the Federal Confidentiality of Alcohol and Drug Abuse Patient Records regulations: The Federal rules restrict any use of the information to criminally investigate or prosecute any alcohol or drug abuse patient.[facility] CenterIn the event this information is protected by the Federal Confidentiality of Alcohol and Drug Abuse Patient Records regulations: The Federal rules restrict any use of the information to criminally investigate or prosecute any alcohol or drug abuse patient.[facility] CenterIn the event this information is protected by the Federal Confidentiality of Alcohol and Drug Abuse Patient Records regulations: The Federal rules restrict any use of the information to criminally investigate or prosecute any alcohol or drug abuse patient.[facility] CenterIn the event this information is protected by the Federal Confidentiality of Alcohol and Drug Abuse Patient Records regulations: The Federal rules restrict any use of the information to criminally investigate or prosecute any alcohol or drug abuse patient.[facility] CenterIn the event this information is protected by the Federal Confidentiality of Alcohol and Drug Abuse Patient Records regulations: The Federal rules restrict any use of the information to criminally investigate or prosecute any alcohol or drug abuse patient.[facility] CenterIn the event this information is protected by the Federal Confidentiality of Alcohol and Drug Abuse Patient Records regulations: The Federal rules restrict any use of the information to criminally investigate or prosecute any alcohol or drug abuse patient.[facility] CenterIn the event this information is protected by the Federal Confidentiality of Alcohol and Drug Abuse Patient Records regulations: The Federal rules restrict any use of the information to criminally investigate or prosecute any alcohol or drug abuse patient.[facility] CenterIn the event this information is protected by the Federal Confidentiality of Alcohol and Drug Abuse Patient Records regulations: The Federal rules restrict any use of the information to criminally investigate or prosecute any alcohol or drug abuse patient.[facility] CenterIn the event this information is protected by the Federal Confidentiality of Alcohol and Drug Abuse Patient Records regulations: The Federal rules restrict any use of the information to criminally investigate or prosecute any alcohol or drug abuse patient.[facility] CenterIn the event this information is protected by the Federal Confidentiality of Alcohol and Drug Abuse Patient Records regulations: The Federal rules restrict any use of the information to criminally investigate or prosecute any alcohol or drug abuse patient.[facility] CenterIn the event this information is protected by the Federal Confidentiality of Alcohol and Drug Abuse Patient Records regulations: The Federal rules restrict any use of the information to criminally investigate or prosecute any alcohol or drug abuse patient.[facility] CenterIn the event this information is protected by the Federal Confidentiality of Alcohol and Drug Abuse Patient Records regulations: The Federal rules restrict any use of the information to criminally investigate or prosecute any alcohol or drug abuse patient.[facility] CenterIn the event this information is protected by the Federal Confidentiality of Alcohol and Drug Abuse Patient Records regulations: The Federal rules restrict any use of the information to criminally investigate or prosecute any alcohol or drug abuse patient.[facility] CenterIn the event this information is protected by the Federal Confidentiality of Alcohol and Drug Abuse Patient Records regulations: The Federal rules restrict any use of the information to criminally investigate or prosecute any alcohol or drug abuse patient.[facility] CenterIn the event this information is protected by the Federal Confidentiality of Alcohol and Drug Abuse Patient Records regulations: The Federal rules restrict any use of the information to criminally investigate or prosecute any alcohol or drug abuse patient.[facility] CenterIn the event this information is protected by the Federal Confidentiality of Alcohol and Drug Abuse Patient Records regulations: The Federal rules restrict any use of the information to criminally investigate or prosecute any alcohol or drug abuse patient.[facility] CenterIn the event this information is protected by the Federal Confidentiality of Alcohol and Drug Abuse Patient Records regulations: The Federal rules restrict any use of the information to criminally investigate or prosecute any alcohol or drug abuse patient.[facility] CenterIn the event this information is protected by the Federal Confidentiality of Alcohol and Drug Abuse Patient Records regulations: The Federal rules restrict any use of the information to criminally investigate or prosecute any alcohol or drug abuse patient.[facility] CenterIn the event this information is protected by the Federal Confidentiality of Alcohol and Drug Abuse Patient Records regulations: The Federal rules restrict any use of the information to criminally investigate or prosecute any alcohol or drug abuse patient.[facility] CenterIn the event this information is protected by the Federal Confidentiality of Alcohol and Drug Abuse Patient Records regulations: The Federal rules restrict any use of the information to criminally investigate or prosecute any alcohol or drug abuse patient.[facility] CenterIn the event this information is protected by the Federal Confidentiality of Alcohol and Drug Abuse Patient Records regulations: The Federal rules restrict any use of the information to criminally investigate or prosecute any alcohol or drug abuse patient.[facility] CenterIn the event this information is protected by the Federal Confidentiality of Alcohol and Drug Abuse Patient Records regulations: The Federal rules restrict any use of the information to criminally investigate or prosecute any alcohol or drug abuse patient.[facility] CenterIn the event this information is protected by the Federal Confidentiality of Alcohol and Drug Abuse Patient Records regulations: The Federal rules restrict any use of the information to criminally investigate or prosecute any alcohol or drug abuse patient.[facility] CenterIn the event this information is protected by the Federal Confidentiality of Alcohol and Drug Abuse Patient Records regulations: The Federal rules restrict any use of the information to criminally investigate or prosecute any alcohol or drug abuse patient.[facility] CenterIn the event this information is protected by the Federal Confidentiality of Alcohol and Drug Abuse Patient Records regulations: The Federal rules restrict any use of the information to criminally investigate or prosecute any alcohol or drug abuse patient.[facility] CenterIn the event this information is protected by the Federal Confidentiality of Alcohol and Drug Abuse Patient Records regulations: The Federal rules restrict any use of the information to criminally investigate or prosecute any alcohol or drug abuse patient.[facility] CenterIn the event this information is protected by the Federal Confidentiality of Alcohol and Drug Abuse Patient Records regulations: The Federal rules restrict any use of the information to criminally investigate or prosecute any alcohol or drug abuse patient.[facility] CenterIn the event this information is protected by the Federal Confidentiality of Alcohol and Drug Abuse Patient Records regulations: The Federal rules restrict any use of the information to criminally investigate or prosecute any alcohol or drug abuse patient.[facility] CenterIn the event this information is protected by the Federal Confidentiality of Alcohol and Drug Abuse Patient Records regulations: The Federal rules restrict any use of the information to criminally investigate or prosecute any alcohol or drug abuse patient.[facility] CenterIn the event this information is protected by the Federal Confidentiality of Alcohol and Drug Abuse Patient Records regulations: The Federal rules restrict any use of the information to criminally investigate or prosecute any alcohol or drug abuse patient.[facility] CenterIn the event this information is protected by the Federal Confidentiality of Alcohol and Drug Abuse Patient Records regulations: The Federal rules restrict any use of the information to criminally investigate or prosecute any alcohol or drug abuse patient.[facility] CenterIn the event this information is protected by the Federal Confidentiality of Alcohol and Drug Abuse Patient Records regulations: The Federal rules restrict any use of the information to criminally investigate or prosecute any alcohol or drug abuse patient.[facility] CenterIn the event this information is protected by the Federal Confidentiality of Alcohol and Drug Abuse Patient Records regulations: The Federal rules restrict any use of the information to criminally investigate or prosecute any alcohol or drug abuse patient.[facility] CenterIn the event this information is protected by the Federal Confidentiality of Alcohol and Drug Abuse Patient Records regulations: The Federal rules restrict any use of the information to criminally investigate or prosecute any alcohol or drug abuse patient.[facility] CenterIn the event this information is protected by the Federal Confidentiality of Alcohol and Drug Abuse Patient Records regulations: The Federal rules restrict any use of the information to criminally investigate or prosecute any alcohol or drug abuse patient.[facility] CenterIn the event this information is protected by the Federal Confidentiality of Alcohol and Drug Abuse Patient Records regulations: The Federal rules restrict any use of the information to criminally investigate or prosecute any alcohol or drug abuse patient.[facility] CenterIn the event this information is protected by the Federal Confidentiality of Alcohol and Drug Abuse Patient Records regulations: The Federal rules restrict any use of the information to criminally investigate or prosecute any alcohol or drug abuse patient.[facility] CenterIn the event this information is protected by the Federal Confidentiality of Alcohol and Drug Abuse Patient Records regulations: The Federal rules restrict any use of the information to criminally investigate or prosecute any alcohol or drug abuse patient.[facility] CenterIn the event this information is protected by the Federal Confidentiality of Alcohol and Drug Abuse Patient Records regulations: The Federal rules restrict any use of the information to criminally investigate or prosecute any alcohol or drug abuse patient.[facility] CenterIn the event this information is protected by the Federal Confidentiality of Alcohol and Drug Abuse Patient Records regulations: The Federal rules restrict any use of the information to criminally investigate or prosecute any alcohol or drug abuse patient.[facility] CenterIn the event this information is protected by the Federal Confidentiality of Alcohol and Drug Abuse Patient Records regulations: The Federal rules restrict any use of the information to criminally investigate or prosecute any alcohol or drug abuse patient.[facility] CenterIn the event this information is protected by the Federal Confidentiality of Alcohol and Drug Abuse Patient Records regulations: The Federal rules restrict any use of the information to criminally investigate or prosecute any alcohol or drug abuse patient.[facility] CenterIn the event this information is protected by the Federal Confidentiality of Alcohol and Drug Abuse Patient Records regulations: The Federal rules restrict any use of the information to criminally investigate or prosecute any alcohol or drug abuse patient.[facility] CenterIn the event this information is protected by the Federal Confidentiality of Alcohol and Drug Abuse Patient Records regulations: The Federal rules restrict any use of the information to criminally investigate or prosecute any alcohol or drug abuse patient.[facility] CenterIn the event this information is protected by the Federal Confidentiality of Alcohol and Drug Abuse Patient Records regulations: The Federal rules restrict any use of the information to criminally investigate or prosecute any alcohol or drug abuse patient.[facility] CenterIn the event this information is protected by the Federal Confidentiality of Alcohol and Drug Abuse Patient Records regulations: The Federal rules restrict any use of the information to criminally investigate or prosecute any alcohol or drug abuse patient.[facility] CenterIn the event this information is protected by the Federal Confidentiality of Alcohol and Drug Abuse Patient Records regulations: The Federal rules restrict any use of the information to criminally investigate or prosecute any alcohol or drug abuse patient.[facility] CenterIn the event this information is protected by the Federal Confidentiality of Alcohol and Drug Abuse Patient Records regulations: The Federal rules restrict any use of the information to criminally investigate or prosecute any alcohol or drug abuse patient.[facility] CenterIn the event this information is protected by the Federal Confidentiality of Alcohol and Drug Abuse Patient Records regulations: The Federal rules restrict any use of the information to criminally investigate or prosecute any alcohol or drug abuse patient.[facility] CenterIn the event this information is protected by the Federal Confidentiality of Alcohol and Drug Abuse Patient Records regulations: The Federal rules restrict any use of the information to criminally investigate or prosecute any alcohol or drug abuse patient.[facility] CenterIn the event this information is protected by the Federal Confidentiality of Alcohol and Drug Abuse Patient Records regulations: The Federal rules restrict any use of the information to criminally investigate or prosecute any alcohol or drug abuse patient.[facility] CenterIn the event this information is protected by the Federal Confidentiality of Alcohol and Drug Abuse Patient Records regulations: The Federal rules restrict any use of the information to criminally investigate or prosecute any alcohol or drug abuse patient.[facility] CenterIn the event this information is protected by the Federal Confidentiality of Alcohol and Drug Abuse Patient Records regulations: The Federal rules restrict any use of the information to criminally investigate or prosecute any alcohol or drug abuse patient.[facility] CenterIn the event this information is protected by the Federal Confidentiality of Alcohol and Drug Abuse Patient Records regulations: The Federal rules restrict any use of the information to criminally investigate or prosecute any alcohol or drug abuse patient.[facility] CenterIn the event this information is protected by the Federal Confidentiality of Alcohol and Drug Abuse Patient Records regulations: The Federal rules restrict any use of the information to criminally investigate or prosecute any alcohol or drug abuse patient.[facility] CenterIn the event this information is protected by the Federal Confidentiality of Alcohol and Drug Abuse Patient Records regulations: The Federal rules restrict any use of the information to criminally investigate or prosecute any alcohol or drug abuse patient.[facility] CenterIn the event this information is protected by the Federal Confidentiality of Alcohol and Drug Abuse Patient Records regulations: The Federal rules restrict any use of the information to criminally investigate or prosecute any alcohol or drug abuse patient.[facility] CenterIn the event this information is protected by the Federal Confidentiality of Alcohol and Drug Abuse Patient Records regulations: The Federal rules restrict any use of the information to criminally investigate or prosecute any alcohol or drug abuse patient.[facility] CenterIn the event this information is protected by the Federal Confidentiality of Alcohol and Drug Abuse Patient Records regulations: The Federal rules restrict any use of the information to criminally investigate or prosecute any alcohol or drug abuse patient.[facility] CenterIn the event this information is protected by the Federal Confidentiality of Alcohol and Drug Abuse Patient Records regulations: The Federal rules restrict any use of the information to criminally investigate or prosecute any alcohol or drug abuse patient.[facility] CenterIn the event this information is protected by the Federal Confidentiality of Alcohol and Drug Abuse Patient Records regulations: The Federal rules restrict any use of the information to criminally investigate or prosecute any alcohol or drug abuse patient.[facility] CenterIn the event this information is protected by the Federal Confidentiality of Alcohol and Drug Abuse Patient Records regulations: The Federal rules restrict any use of the information to criminally investigate or prosecute any alcohol or drug abuse patient.[facility] CenterIn the event this information is protected by the Federal Confidentiality of Alcohol and Drug Abuse Patient Records regulations: The Federal rules restrict any use of the information to criminally investigate or prosecute any alcohol or drug abuse patient.[facility] CenterIn the event this information is protected by the Federal Confidentiality of Alcohol and Drug Abuse Patient Records regulations: The Federal rules restrict any use of the information to criminally investigate or prosecute any alcohol or drug abuse patient.[facility] CenterIn the event this information is protected by the Federal Confidentiality of Alcohol and Drug Abuse Patient Records regulations: The Federal rules restrict any use of the information to criminally investigate or prosecute any alcohol or drug abuse patient.[facility] CenterIn the event this information is protected by the Federal Confidentiality of Alcohol and Drug Abuse Patient Records regulations: The Federal rules restrict any use of the information to criminally investigate or prosecute any alcohol or drug abuse patient.[facility] CenterIn the event this information is protected by the Federal Confidentiality of Alcohol and Drug Abuse Patient Records regulations: The Federal rules restrict any use of the information to criminally investigate or prosecute any alcohol or drug abuse patient.[facility] CenterIn the event this information is protected by the Federal Confidentiality of Alcohol and Drug Abuse Patient Records regulations: The Federal rules restrict any use of the information to criminally investigate or prosecute any alcohol or drug abuse patient.[facility] CenterIn the event this information is protected by the Federal Confidentiality of Alcohol and Drug Abuse Patient Records regulations: The Federal rules restrict any use of the information to criminally investigate or prosecute any alcohol or drug abuse patient.[facility] CenterIn the event this information is protected by the Federal Confidentiality of Alcohol and Drug Abuse Patient Records regulations: The Federal rules restrict any use of the information to criminally investigate or prosecute any alcohol or drug abuse patient.[facility] CenterIn the event this information is protected by the Federal Confidentiality of Alcohol and Drug Abuse Patient Records regulations: The Federal rules restrict any use of the information to criminally investigate or prosecute any alcohol or drug abuse patient.[facility] CenterIn the event this information is protected by the Federal Confidentiality of Alcohol and Drug Abuse Patient Records regulations: The Federal rules restrict any use of the information to criminally investigate or prosecute any alcohol or drug abuse patient.[facility] CenterIn the event this information is protected by the Federal Confidentiality of Alcohol and Drug Abuse Patient Records regulations: The Federal rules restrict any use of the information to criminally investigate or prosecute any alcohol or drug abuse patient.[facility] CenterIn the event this information is protected by the Federal Confidentiality of Alcohol and Drug Abuse Patient Records regulations: The Federal rules restrict any use of the information to criminally investigate or prosecute any alcohol or drug abuse patient.[facility] CenterIn the event this information is protected by the Federal Confidentiality of Alcohol and Drug Abuse Patient Records regulations: The Federal rules restrict any use of the information to criminally investigate or prosecute any alcohol or drug abuse patient.[facility] CenterIn the event this information is protected by the Federal Confidentiality of Alcohol and Drug Abuse Patient Records regulations: The Federal rules restrict any use of the information to criminally investigate or prosecute any alcohol or drug abuse patient.[facility] CenterIn the event this information is protected by the Federal Confidentiality of Alcohol and Drug Abuse Patient Records regulations: The Federal rules restrict any use of the information to criminally investigate or prosecute any alcohol or drug abuse patient.[facility] CenterIn the event this information is protected by the Federal Confidentiality of Alcohol and Drug Abuse Patient Records regulations: The Federal rules restrict any use of the information to criminally investigate or prosecute any alcohol or drug abuse patient.[facility] CenterIn the event this information is protected by the Federal Confidentiality of Alcohol and Drug Abuse Patient Records regulations: The Federal rules restrict any use of the information to criminally investigate or prosecute any alcohol or drug abuse patient.[facility] CenterIn the event this information is protected by the Federal Confidentiality of Alcohol and Drug Abuse Patient Records regulations: The Federal rules restrict any use of the information to criminally investigate or prosecute any alcohol or drug abuse patient.[facility] CenterIn the event this information is protected by the Federal Confidentiality of Alcohol and Drug Abuse Patient Records regulations: The Federal rules restrict any use of the information to criminally investigate or prosecute any alcohol or drug abuse patient.[facility] CenterIn the event this information is protected by the Federal Confidentiality of Alcohol and Drug Abuse Patient Records regulations: The Federal rules restrict any use of the information to criminally investigate or prosecute any alcohol or drug abuse patient.[facility] CenterIn the event this information is protected by the Federal Confidentiality of Alcohol and Drug Abuse Patient Records regulations: The Federal rules restrict any use of the information to criminally investigate or prosecute any alcohol or drug abuse patient.[facility] CenterIn the event this information is protected by the Federal Confidentiality of Alcohol and Drug Abuse Patient Records regulations: The Federal rules restrict any use of the information to criminally investigate or prosecute any alcohol or drug abuse patient.[facility] CenterIn the event this information is protected by the Federal Confidentiality of Alcohol and Drug Abuse Patient Records regulations: The Federal rules restrict any use of the information to criminally investigate or prosecute any alcohol or drug abuse patient.[facility] CenterIn the event this information is protected by the Federal Confidentiality of Alcohol and Drug Abuse Patient Records regulations: The Federal rules restrict any use of the information to criminally investigate or prosecute any alcohol or drug abuse patient.[facility] CenterIn the event this information is protected by the Federal Confidentiality of Alcohol and Drug Abuse Patient Records regulations: The Federal rules restrict any use of the information to criminally investigate or prosecute any alcohol or drug abuse patient.[facility] CenterIn the event this information is protected by the Federal Confidentiality of Alcohol and Drug Abuse Patient Records regulations: The Federal rules restrict any use of the information to criminally investigate or prosecute any alcohol or drug abuse patient.[facility] CenterIn the event this information is protected by the Federal Confidentiality of Alcohol and Drug Abuse Patient Records regulations: The Federal rules restrict any use of the information to criminally investigate or prosecute any alcohol or drug abuse patient.[facility] CenterIn the event this information is protected by the Federal Confidentiality of Alcohol and Drug Abuse Patient Records regulations: The Federal rules restrict any use of the information to criminally investigate or prosecute any alcohol or drug abuse patient.[facility] CenterIn the event this information is protected by the Federal Confidentiality of Alcohol and Drug Abuse Patient Records regulations: The Federal rules restrict any use of the information to criminally investigate or prosecute any alcohol or drug abuse patient.[facility] CenterIn the event this information is protected by the Federal Confidentiality of Alcohol and Drug Abuse Patient Records regulations: The Federal rules restrict any use of the information to criminally investigate or prosecute any alcohol or drug abuse patient.[facility] CenterIn the event this information is protected by the Federal Confidentiality of Alcohol and Drug Abuse Patient Records regulations: The Federal rules restrict any use of the information to criminally investigate or prosecute any alcohol or drug abuse patient.[facility] CenterIn the event this information is protected by the Federal Confidentiality of Alcohol and Drug Abuse Patient Records regulations: The Federal rules restrict any use of the information to criminally investigate or prosecute any alcohol or drug abuse patient.[facility] Reason for Visit (unrecogniz ed section and content) Reason Comments Established Patient Specialty Diagnoses / Procedures Referred By Contac t Referred To Contact Hematology/Oncology / HEMATOLOGY/ONCOLOGY Diagnoses Malignant neoplasm of right kidney, except renal pelvis STUDY PT IRB [id number] ([facility] 9936) C64.1 NCT [id number] PER SLIP Procedures OFFICE/OUTPATIENT ESTABLISHED MOD MDM 30-39 MIN EST PATIENT/[place] [address] [address] [place] [id number] Godfrey Ohara, SECTION [employer] [address] [place] [address] Referral ID Status Reason Start Date Expiration Date Visits Requested Visits Authorized [id number] Denied Financial Clearance Required - OON Payor OON Notification Letter Clearance Not Met - Admin/Practice Advisor/D irector Advise to Postpone/Resched ule or Not Proceed 10/09/2021 01/07/2022 1 0 Specialty Diagnoses / Procedures Referred By Contac t Referred To Contact Diagnoses Nonrheumatic mitral valve regurgitation Procedures CATH PLMT L HRT & ARTS W/NJX & ANGIO IMG S&I PRQ TRLUML CORONARY STENT W/ANGIO ONE ART/BRNCH CORONARY ANGIO W CATH PLACE W IMAGE INJECT & INTERP W LT HEART CATH W INJECT LT VENTRGRAPHY INSERT INTRACORONARY STENT-PER MAJOR VESSEL OR BRANCH [facility] [employer] [address] [place] [address] Referral ID Status Reason Start Date Expiration Date Visits Re quested Visits Authorized [id number] [address] Specialty Diagnoses / Procedures Referred By Contac t Referred To Contact CT IMAGING Diagnoses Malignant neoplasm of right kidney, except renal pelvis (HCC) Renal cell carcinoma, unspecified laterality (HCC) Procedures CT CHEST W IVCON DIAGNOSTIC COMPUTED TOMOGRAPHY THORAX W/CONTRAST Kenneth Chester MD [address] [place] [address] Ct Imaging Referral ID Status Reason Start Date Expiration Date V isits Requested Visits Authorized [id number] Closed Auto-Generate d Referral 07/14/2021 08/28/2021 1 1 Reason Comments Results Reason Comments New Patient Reason Comments Biopsy Request Specialty Diagnoses / Procedures Referred By Contac t Referred To Contact RADIO CT SCAN [facility] Diagnoses Malignant neoplasm of kidney, unspecified laterality (HCC) Malignant neoplasm of kidney excluding renal pelvis, unspecified laterality (HCC) Procedures CT ABD/PEL W IVCON CT ABD & PELVIS W/CONTRAST Adriana Hodge MD [address] [place] [address] Scan [facility] [address] [address] [place] [address] Referral ID Status Reason Start Date Expiration Date V isits Requested Visits Authorized [id number] Closed Auto-Generate d Referral 06/26/2021 08/10/2021 1 1 Specialty Diagnoses / [facility] Diagnoses Malignant neoplasm of kidney, unspecified laterality (HCC) Malignant neoplasm of kidney excluding renal pelvis, unspecified laterality (HCC) Procedures CT ABD/PEL WO IVCON CT ABD & PELVIS W/O CONTRAST Adriana Hodge MD [address] [place] [address] Ct Imaging Referral ID Status Reason Start Date Expiration Date Visits Requested Visits Authorized [id number] Waiting for Response Auto-Genera mandeep Referral Patient Cleared - Admin/Chair man/Directo r advise to proceed 06/26/2021 08/10/2021 1 1 Reason Comments Radiology [place] Specialty Diagnoses / Procedures [facility] Referred To Contact MOLECULAR & FUNCTIONAL IMAGING Diagnoses Malignant neoplasm of kidney, unspecified laterality (HCC) Malignant neoplasm of kidney excluding renal pelvis, unspecified laterality (HCC) Procedures NM BONE WHOLE BODY BONE &/JOINT IMAGING WHOLE BODY Adriana Hodge MD [address] [place] [address] Molecular & Functional Imaging [address] [place] [address] Referral ID Status Reason Start Date Expiration Date V isits Requested Visits Authorized [id number] Closed Auto-Generate d Referral 06/26/2021 08/10/2021 2 2 Reason Comments Consult Specialty Diagnoses / Procedures Referred By [facility] Referred To Contact Oncology Diagnoses Malignant neoplasm of kidney, unspecified laterality (HCC) Malignant neoplasm of kidney excluding renal pelvis, unspecified laterality (HCC) Procedures CONSULT TO ONCOLOGY OFFICE/OUTPATIENT NEW HIGH MDM 60-74 MINUTES Adriana Hodge MD [address] [place] [address] Referral ID Status Reason Start Date Expiration Date V isits Requested Visits Authorized [id number] Closed PCP Requested Referral 06/23/2021 06/23/2022 1 1 Reason Comments Research [facility] [id number] Reason Comments Benefits Investigation Reason Comments Radiology MRI Specialty Diagnoses / Procedures [facility] Referred To Contact MR IMAGING Diagnoses Malignant neoplasm of kidney excluding renal pelvis, unspecified laterality (HCC) Renal cell carcinoma, unspecified laterality (HCC) Procedures MRI BRAIN WO/W IVCON MRI BRAIN BRAIN STEM W/O W/CONTRAST MATERIAL Kenneth Chester MD [address] [place] [address] Mr Imaging Referral ID Status Reason Start Date Expiration Date V isits Requested Visits Authorized [id number] Closed Auto-Generate d Referral 07/14/2021 08/28/2021 1 1 Reason Comments Shortness of Breath Hypertension Reason Comments Patient Education lisa Reason Comments Patient Education Reason Comments Blood Pressure Reason Comments Refill Request Reason Onset Date Comments Opened In Error 08/18/2021 Reason Comments Results Patient Update Claims Adjuster Crop - Other Reason Comments Established Patient Specialty Diagnoses / Procedures Referred By [facility] Referred To Contact CT IMAGING Diagnoses SOB (shortness of breath) Procedures CT CHEST W IVCON PE DIAGNOSTIC COMPUTED TOMOGRAPHY THORAX W/CONTRAST Daksha Melo, PA-C [address] [place] [address] Ct Imaging Referral ID Status Reason Start Date Expiration Date Visits Requested Visits Authorized [id number] Pending Review Auto-Generat ed Referral 09/02/2021 10/02/2022 1 1 Reason Comments Radio Gen [id number] Reason Comments Patient Update Reason Comments Claims Adjuster Crop - Other Reason Comments Patient Question Reason [...] see if surgery is rescheduled. Reason Comments Claims Adjuster Crop - Other Calling to get an update on the patient's surgery schedule (to see if it had been rescheduled), and to inform him that the speciality pharmacy is trying to get a hold of them to deliver his medication. Reason Comments Recheck Specialty Diagnoses / Procedures Referred By Sujatha vasquez Referred To Contact HEMATOLOGY/ONCOLOGY Diagnoses c64.1 Procedures OFFICE VISIT Haylee Wilburn MD [address] [place] [address] [address] [facility] [address] [facility] [place] [address] Referral ID Status Reason Start Date Expiration Date V isits Requested Visits Authorized [id number] Closed Financial Clearance Not Required Patient Cleared - INN Insurance Found 10/23/2021 03/07/2022 [address] Specialty Diagnoses / Procedures Referred By Sujatha vasquez Referred To Contact CT IMAGING Diagnoses [id number]-DOTniiccdue neoplasm of right kidney, except renal pelvis (HCC) Procedures CT CHEST W IVCON CT ABD/PEL W IVCON Adriana Hodge MD [address] [place] [address] Ct Imaging Referral ID Status Reason Start Date Expiration Date Visits Requested Visits Authorized [id number] Closed Financial Clearance Required - OON Payor OON Notification Letter Patient Cleared - Admin/Practice Advisor/D irector advise to proceed 11/17/2021 01/16/2022 1 [...] Procedures Consult and Treat Karin Cox MD [address] [place] [address] Alfredo Xavier MD [address] [facility] [place] [address] Referral ID Status Reason Start Date Expiration Date Visits Requested Visits Authorized [id number] Pending Review OON/Self Pay Override 12/03/2021 03/03/2022 1 1 Reason Comments New patient, to establish relationship Invalid number Letter Request Reason Comments Claims Adjuster Crop - Other Patient Update Reason Comments Informed Consent Reason Onset Date Comments Refill Request 01/22/2022 Specialty Diagnoses / Procedures Referred By Sujatha vasquez Referred To Contact RADIATION ONCOLOGY Diagnoses Renal Cell ca Procedures OFFICE CONSULTATION NEW/ESTAB PATIENT 60 MIN monitor patient after completion of radiation treatment Suman Peterson, [facility]UR[facility] [address] [place] [address] [place] [address] Referral ID Status Reason Start Date Expiration Date V isits Requested Visits Authorized [id number] Closed OON/Self Pay Override Patient Cleared - INN Insurance Found 12/26/2021 03/26/2022 1 1 Reason Comments New Patient self-referral ANÍBAL connie C.C.M.HJohn in friendship.Reason for visit: hospital discharge from, 09-30-21 for new onset A. fib/RVRCardiac: 01/19/2022 EKG / 09/26/2021 Echo / 09/25/2021 EPS: Cardioversion08/05/2021 cardiac cathTelemetry: 09/26/2021 image of EKGLab work: 01/23/2022 through 06/20/2021Imagin01/19/2022 x-ray of the chest /11/20/2021 CT of the chestNote/strands: 09/22 - 09/30/2021 discharge summary Specialty Diagnoses / Procedures Referred By Contac t Referred To Contact CARDIOLOGY Diagnoses Self-referral Procedures FOLLOW-UP/REASSESSMENT Daksha Turner MD [address] [place] [address] Card [facility] Courtney Cee [address] [address] Referral ID Status Reason Start Date Expiration Date V isits Requested Visits Authorized [id number] Closed OON/Self Pay Override Patient Cleared - INN Insurance Found 12/25/2021 02/23/2022 1 1 Specialty Diagnoses / Procedures Referred By Contac t Referred To Contact HEMATOLOGY/ONCOLOGY Diagnoses Renal cell carcinoma of right kidney (HCC) Metastatic renal cell carcinoma (HCC) Procedures OFFICE VISIT W HEM/ONC Haylee Wilburn MD [address] [place] [address] [place] [address] [place] [address] Referral ID Status Reason Start Date Expiration Date V isits Requested Visits Authorized [id number] Closed OON/Self Pay Override Patient Cleared - INN Insurance Found 02/12/2022 04/13/2022 1 1 Reason Comments Recheck Specialty Diagnoses / Procedures Referred By Sujatha t Referred To Contact HEMATOLOGY/ONCOLOGY Diagnoses Malignant neoplasm of unspecified kidney, except renal pelvis Procedures OFFICE/OUTPATIENT ESTABLISHED MOD MDM 30-39 MIN Haylee Wilburn MD [address] [place] [address] [address] [facility] [place] [address] Referral ID Status Reason Start Date Expiration Date Visits Requested Visits Authorized [id number] Pending Review OON/Self Pay Override 03/11/2022 06/09/2022 1 1 Reason Onset Date Comments SPP Oral Oncology/hematology - Treatment Referra l 03/12/2022 Inlyta Insurance Authorization 03/12/2022 Pending PA Reason Comments Appointment Reason Onset Date Comments Refill Request 03/16/2022 Inlyta to [facility]red [facility] Reason Comments Appointment Claims Adjuster Crop - Other Specialty Diagnoses / Procedures Referred By Contac t Referred To Contact CT IMAGING Diagnoses Renal cell carcinoma of right kidney (HCC) Procedures CT CHEST W IVCON DIAGNOSTIC COMPUTED TOMOGRAPHY THORAX W/CONTRAST Haylee Wilburn MD [address] [place] [address] Ct Imaging Referral ID Status Reason Start Date Expiration Date V isits Requested Visits Authorized [id number] Closed Auto-Generat ed Referral Clearance Not Met [...] BE BASED ON THE PRIMARY CLINICAL RECORDS. [employer] provides no warranty or guarantee of the accuracy or completeness of information in this document.
[2024-11-13 02:10] LABS: Hematocrit 40.6 % (40-54); Hemoglobin 13.8 g/dL (13.0-16.5); Immature Granulocytes Count 0.030 X10^3/uL (0.0-0.0); Mean Corp Hgb Conc 34.0 g/dL (32-36); Mean Corpuscular Volume 96.0 fL (80-94); Mean Platelet Vol. 10.1 fl (6.2-12.0); NRBC Flagged by Analyzer 0 % (0-5); Platelet Count 325 K/mm3 (150-450); RBC Distribution Width CV 18.3 % (11.6-14.6); RBC Distribution Width SD 63.6 fl (35.1-43.9); Red Blood Count 4.23 M/mm3 (4.6-6.2); White Blood Count 7.7 K/mm3 (4.4-11.0)
--- NOTE | 2024-11-13 02:12 | CT_ITS ---
PROCEDURE: BRAIN/HEAD WITHOUT CONTRAST 11/13/2024 REASON FOR EXAM: SYNCOPE TECHNIQUE: Procedure Code: CTBR Modality: CT Procedure: BRAIN/HEAD WITHOUT CONTRAST Coronal and Sagittal reconstruction series were provided. One or more dose reduction techniques were used (e.g., Automated exposure control, adjustment of the mA and/or kV according to patient size, use of iterative reconstruction technique. RADIATION DOSE SUMMARY: CTDlvol: 44.99 mGy DLP: 829 mGycm COMPARISON: None. FINDINGS: Mild diffuse cortical atrophy, commensurate with the patient's age. Scattered hypodense foci in the periventricular and subcortical white matter suggestive of chronic ischemic white matter disease. Normal size of the ventricles and extra-axial spaces for the patient's age. Normal basal ganglia and thalami. Normal brainstem. Normal cerebellum. There is no demonstrated extra-axial, intraparenchymal, or intraventricular hemorrhage. There are no findings of an acute ischemic infarction. Normal calvarium. There is no demonstrated fracture. Normal soft tissue structures. Moderate chronic mucosal inflammatory changes of the left maxillary sinus with associated secretions suggestive of acute sinusitis. Normal remaining visualized paranasal sinuses. CT/Brain/Head without Contrast IMPRESSION: No CT evidence for acute brain abnormality. Moderate chronic mucosal inflammatory changes of the left maxillary sinus with associated secretions suggestive of acute sinusitis. Reading [facility]
--- NOTE | 2024-11-13 02:15 | RAD_ITS ---
PROCEDURE: CHEST 1 VIEW (PORTABLE) 11/12/2024 REASON FOR EXAM: COUGH TECHNIQUE: Frontal view of the chest. COMPARISON: CT chest 11/14/2019 FINDINGS: Hardware: None. Heart: The heart size is normal. Lungs: The lungs are clear. Bones: Expansile destructive mass associated with the right lateral 6th rib measuring a proximally 7.9 x 4.8 cm. No acute fractures. RAD/Chest 1 View (Portable) IMPRESSION: 1. No acute cardiopulmonary findings. 2. Expansile mass associated with the right lateral 6th rib. Reading Location: [facility]
[2024-11-13 02:17] LABS: Prothrombin Time (Protime)PT. 19.6 SECONDS (11.7-14.9)
[2024-11-13 02:18] LABS: Partial Thromboplast Time 30.0 Seconds (24.1-36.2)
--- NOTE | 2024-11-13 02:40 | CT_ITS ---
PROCEDURE: CHEST WITHOUT CONTRAST 11/13/2024 REASON FOR EXAM: RIGHT LUNG MASS TECHNIQUE: Chest CT without contrast. Coronal and Sagittal reconstruction series were provided. One or more dose reduction techniques were used (e.g., Automated exposure control, adjustment of the mA and/or kV according to patient size, use of iterative reconstruction technique RADIATION DOSE SUMMARY: CTDlvol: 17.8 mGy DLP: 613 mGycm COMPARISON: Chest radiograph on 11/13/2024. CT scan on 06/13/2024. FINDINGS: Unchanged expansile lytic/destructive lesion in the axillary portion of the right 6th rib measuring 3.5 x 4.9 cm, possibly metastatic disease. Moderate coronary artery calcifications. Diffuse spondylosis. Unchanged cardiomegaly. Unchanged mild pericardial effusion. Normal unenhanced main pulmonary artery and right and left pulmonary arteries. Normal bilateral peripheral pulmonary arteries. Normal thoracic aorta and visualized great vessels. There is no demonstrated aortic aneurysm. Normal pericardium. Normal mediastinum. Normal hilar regions. Normal visualized trachea and bronchi. The lungs are well expanded. Normal pulmonary parenchyma. Normal pleura. CT/Chest without Contrast IMPRESSION: Coronary artery calcification (CAC) is is present Unchanged expansile lytic/destructive lesion in the axillary portion of the rig ht 6th rib measuring 3.5 x 4.9 cm, possibly metastatic disease. Moderate coronary artery calcifications. Diffuse spondylosis. Unchanged cardiomegaly. Unchanged mild pericardial effusion. Reading Location: [place] [address]
[2024-11-13 02:59] LABS: AST(SGOT) 44 U/L (<=37); Alanine Aminotransfer ALT/SGPT 46 U/L (<=46); Albumin, Serum 3.8 g/dL (3.4-4.8); Alkaline Phosphatase 51 U/L (40-129); Bilirubin, Direct 0.31 mg/dL (0.00-0.30); Globulin 3.1 g/dL (2.2-4.2); Pro- Brain NATRIURETIC PEPTIDE 540 pg/mL (<=900)
--- NOTE | 2024-11-13 03:02 | EDS_ITS ---
HPI History of Present Illness Chief Complaint: Hypotension Informant: patient, family and EMS Narrative Narrative: Patient is a 59-year-old male with past ministry of chronic atrial fibrillation on Eliquis as well as history of renal cell cancer currently on daily antineoplastic medication. He states he has had roughly 1 to 2 months of daily diarrhea. He states he has been worked up for this with no obvious cause. He states that this evening he got up to go to the bathroom and next thing he knew he was waking up on the floor. He states that there was no chest pain or palpitations or rapid heartbeat. He denies any headache. He states that there is been no recent sick symptoms such as fevers or chills or any his persistent diarrhea. However anytime he tries to get up and move he begins to feel lightheaded and dizzy and feels like he is going to pass out once again and therefore EMS was called and he was brought in for evaluation EMS states when they arrived he was awake and alert but appeared ill and they report his blood pressures been low at approximately 50/30 during transport. [facility] Medical History Diabetes mellitus, type 2 Obesity (BMI 30.0-34.9) HLD (hyperlipidemia) Anemia Atrial fibrillation CKD (chronic kidney disease), stage III Systolic CHF Tobacco use NIMCO on CPAP Metastatic renal cell carcinoma to bone Renal cell cancer Hyperlipidemia GERD (gastroesophageal reflux disease) COPD (chronic obstructive pulmonary disease) Hypertension Home Medications ?Medication ?Instructions ?Recorded ?Last Taken ?Type albuterol sulfate 2.5 mg/3 mL 2.5 mg (3 mL) inhalation PRN PRN 06/29/22 Unknown Rx (0.083 %) solution for nebulization Shortness Of Breat h #75 mL ferrous sulfate 325 mg (65 mg 325 mg PO BID supplement #30 tabs 06/29/22 Unknown Rx iron) tablet fluticasone fur. 100 mcg-umeclid 1 inh inhalation MONICA Y breathing 06/29/22 Unknown Rx 62.5 mcg-vilant 25 mcg #28 ea inhalat.powder (Trelegy Ellipta) pantoprazole 40 mg tablet,delayed 40 mg PO DAILY gerd #30 tabs 06/29/22 Unknown Rx release rosuvastatin 40 mg tablet 40 mg PO DAILY cholesterol # 30 tabs 06/29/22 Unknown Rx losartan 50 mg tablet 50 mg PO DAILY blood pressur e #90 09/29/22 Unknown Rx tabs spironolactone 25 mg tablet 25 mg PO DAILY diuretic #9 0 tabs 09/29/22 Unknown Rx carvedilol 12.5 mg tablet 12.5 mg PO BID blood pressur e #180 06/04/24 Unknown Rx TABLETS semaglutide 0.25 mg or 0.5 mg (2 2 mg subcut QWEEK clay betes 06/20/24 Unknown History mg/3 mL) subcutaneous pen injector (Ozempic) cabozantinib 20 mg tablet 20 mg PO QDAY cancer 5 Unknown History apixaban 5 mg tablet (Eliquis) 5 mg PO BID blood thinn er #60 tabs 08/14/24 Unknown Rx Handicap Placard #1 ea 10/02/24 Unknown Rx bumetanide 2 mg tablet 2 mg PO ONCE water pill 09/06 10/30 Unknown History calcitriol 0.25 mcg capsule 0.25 mcg PO QDAY supplemen t 10/02/24 Unknown History dapagliflozin propanediol 5 mg 5 mg PO QDAY CKD Unknown History tablet (Farxiga) tizanidine 4 mg capsule 4 mg PO Q8H PRN muscle spast icity 10/02/24 Unknown History loperamide 2 mg capsule 2 mg PO 4X/DAY PRN PRN diarr hea 10/19/24 Unknown History mirtazapine 15 mg tablet 15 mg PO QHS antidepressant 10/19/24 Unknown History Allergy/AdvReac Type Severity Reaction Status Date / Time lisinopril Allergy Severe Angioedema Verified 11/13/24 01:34 guaifenesin (From Mucinex) Allergy Intermediate Bleeding Verified 11/13/24 01:34 aspirin (ASA) Allergy Other Verified 11/13/24 01:34 mushroom (mushrooms) Allergy Hives Verified 11/13/24 01:34 Penicillins Allergy PT UNSURE Verified 11/13/24 01:34 OF REACTION shellfish derived Allergy Hives Verified 11/13/24 01:34 Family History Father Cancer Mother Heart disease Hypertension Myocardial infarction Surgical History History of cardiac cath (~07/2021) History of cardioversion (~09/2021) History of nephrectomy, right Social History household members: spouse and family Smoking Status: Current every day smoker tobacco type: cigarettes Electronic Cigarette Use: with nicotine alcohol intake: current alcohol intake frequency: holidays/special occasions only substance use type: does not use ROS ROS ED Constitutional Constitutional ED: Denies chills or fever(s) Eyes Eyes: Denies change in vision or diplopia ENT ENT ED: Denies sore throat Cardiovascular Cardiovascular: Reports other Details: Positive syncope ; Denies chest pain, palpitations or racing heartbeat Respiratory/Chest Respiratory/Chest: Reports cough; Denies dyspnea Gastrointestinal Gastrointestinal: Reports diarrhea; Denies abdominal pain, nausea or vomiting Genitourinary Genitourinary ED: Denies dysuria Musculoskeletal Musculoskeletal: Denies myalgias Integumentary Denies rash Neurologic Neurologic: Denies headache(s) Hematologic/Lymphatic Hematologic/Lymphatic: Reports easy bleeding and easy bruising EXAM Physical Exam Const Vital Signs: 11/13/24 01:25 11/13/24 01:25 11/13/24 01:55 Temperature 97.9 F Temperature Source Oral Pulse Rate 63 90 Respiratory Rate 18 19 H Blood Pressure 65/52 L 70/50 L 91/47 L Blood Pressure Mean 56 56 61 Pulse Ox 100 95 Oxygen Delivery Method Nasal Cannula Oxygen Flow Rate (L/min) 3 11/13/24 02:25 11/13/24 02:30 11/13/24 03:00 Temperature Temperature Source Pulse Rate 80 89 86 Respiratory Rate 20 H 20 H 19 H Blood Pressure 143/92 H 87/72 L 80/55 L Blood Pressure Mean 109 77 63 Pulse Ox 96 97 99 Oxygen Delivery Method Nasal Cannula Nasal Cannula Nasal Cannula Oxygen Flow Rate (L/min) 3 3 3 11/13/24 03:28 11/13/24 03:42 Temperature 97.9 F Temperature Source Pulse Rate 88 80 Respiratory Rate 19 H 19 H Blood Pressure 81/56 L 84/65 L Blood Pressure Mean 64 71 Pulse Ox 99 99 Oxygen Delivery Method Nasal Cannula Oxygen Flow Rate (L/min) 3 Positive well nourished and well developed General Appearance ED: well developed HEENT Reports dry mucous membranes HEENT Narrative: Normocephalic atraumatic No signs of depressed or basilar skull fracture No tongue or lip swelling no oral lesions no airway edema or compromise No tongue or cheek biting to suggest seizure activity Mucous membranes are dry and tacky Mouth ED: Yes dry mucous membranes Mouth: dry mucous membranes Eyes PERRL and EOMs intact bilaterally General Eye ED: Negative for pale conjunctiva or scleral icterus Neck supple Neck Narrative: No bony deformity or step-off of the cervical spine no midline tenderness to pal pation Chest Wall palpation of chest normal Resp normal respiratory effort and clear to auscultation bilaterally Resp Narrative: Breath sounds are diminished throughout but overall clear to auscultation without signs of respiratory distress Cardio regular rate Rate: other Other Details: Irregularly irregular rhythm with regular rate consistent with history of atrial fibrillation GI non-tender, non-distended and no masses GI Narrative: Abdomen is soft nontender and nondistended with hyperactive bowel sounds No voluntary guarding or rigidity or pulsatile mass Auscultation: hyperactive bowel sounds Palpation: soft Extremity normal to inspection Neuro oriented x3, CN's II-XII intact bilaterally and no sensory deficits noted Sensorium / Orientation: alert Motor Exam: strength 5/5 throughout Psych mental status grossly normal Skin no rashes or lesions noted and No skin turgor normal Skin Narrative: Skin turgor is increased General Skin Exam: Negative for jaundice MDM MDM MDM Narrative Medical decision making narrative: Patient arrived to the ER hypotensive but otherwise awake and alert with stable vitals. He reported syncopal event after getting up to go to the bathroom most consistent with orthostatic syncope. As he is on chronic anticoagulation and had a syncopal event there is concern for a subarachnoid or subdural hemorrhage so a CT of the head was obtained. He states he has had mild cough in order to ensure there is no signs of volume overload or pneumonia I did elect to perform a chest x-ray. This showed a right sided mass so a noncontrast CT was added. CT confirmed a right 6 rib mass but this is chronic in nature upon chart review. The patient's creatinine on October 21 was 1.87 and today it is 3.79 indicating severe dehydration with acute on chronic kidney injury. Secondary to this he was given 2 L of IV fluid. He did have mild improvement of his hypotension with hydration however IV fluid must be given cautiously as he does have a history of CHF. After 2 L his pressure had improved but was not significantly better so therefore decision was made to start him on peripheral Levophed. As the patient has acute on chronic kidney injury with improved but overall persistent hypotension he will need to be placed in the unit for continued observation and monitoring. As he is not anemic I have low concern that he has a associated GI bleed with this and therefore I do not feel the need to reverse his anticoagulation. The case was discussed with the hospitalist who agrees with the plan of care and will except him to the ICU for further observation and treatment. History & Record Review Discussion w/independent historian: EMS personnel, Patient and Family Lab Data Attestation: I reviewed the patient's lab results. Labs: Laboratory Results - last 24 hr 11/13/24 01:35 WBC 7.7 RBC 4.23 L Hgb 13.8 Hct 40.6 MCV 96.0 H MCH 32.6 H MCHC 34.0 RDW Std Deviation 63.6 H RDW Coeff of Lizzie 18.3 H Plt Count 325 MPV 10.1 Immature Gran % (Auto) 0.400 Neut % (Auto) 70.0 Lymph % (Auto) 15.7 L Bucks % (Auto) 8.2 Eos % (Auto) 5.4 H Baso % (Auto) 0.3 Absolute Neuts (auto) 5.4 Absolute Lymphs (auto) 1.21 Nucleated RBC % 0 PT 19.6 H INR 1.6 APTT 30.0 Sodium 135 Potassium 4.2 Chloride 99 Carbon Dioxide 19.4 L Anion Gap 17 H BUN 38 H Creatinine 3.76 H Estim Creat Clear Calc 26.15 L Est GFR (MDRD) Non-Af 18 L BUN/Creatinine Ratio 10.1 Glucose 100 H Calcium 9.0 Phosphorus 3.4 Magnesium 1.7 Total Bilirubin 0.72 Direct Bilirubin 0.31 H AST 44 H ALT 46 Alkaline Phosphatase 51 NT pro BNP II 540 Total Protein 6.9 Albumin 3.8 Globulin 3.1 Blood Type O POSITIVE Antibody Screen NEGATIVE Radiography Diagnostic Testing: Clinical Impression(s) from Imaging Studies Brain CT 11/13/24 02:12 IMPRESSION: No CT evidence for acute brain abnormality. Moderate chronic mucosal inflammatory changes of the left maxillary sinus with associated secretions suggestive of acute sinusitis. Reading [facility] [address] Chest X-Ray 11/13/24 02:15 IMPRESSION: 1. No acute cardiopulmonary findings. 2. Expansile mass associated with the right lateral 6th rib. [facility] 11/13/24 02:40 IMPRESSION: Coronary artery calcification (CAC) is is present Unchanged expansile lytic/destructive lesion in the axillary portion of the right 6th rib measuring 3.5 x 4.9 cm, possibly metastatic disease. Moderate coronary artery calcifications. Diffuse spondylosis. Unchanged cardiomegaly. Unchanged mild pericardial effusion. Reading Location: [place] [address] Chest x-ray as interpreted by the emergency medicine physician reveals a mass along the right sixth rib without acute infiltrate or pneumothorax or pleural effusion Management Discussion w/another healthcare provider: Hospitalist Critical Care Time Critical Care Time: Yes Critical care time (excluding procedures): Discussing w/Patient &/or Family/[place], Discussing w/Consultants and - (Critical care time of 33 minutes) Discharge Plan Dx/Rx/DC Orders Clinical Impression: Dehydration, CHF (congestive heart failure), Hypotension due to hypovolemia, Chronic atrial fibrillation, 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
[2024-11-13 03:22] LABS: Anion Gap 17 (5-15); BUN 38 mg/dL (4-19); BUN/Creat Ratio 10.1 RATIO (10-20); Calcium,Total 9.0 mg/dL (7.6-11.0); Carbon Dioxide 19.4 mmol/L (21.0-32.0); Chloride 99 mmol/L (98-108); Estimated Creatinine Clearance 26.15 ml/min (50-250); Glucose 100 mg/dL (70-99); Magnesium 1.7 mg/dL (1.5-2.2); Potassium 4.2 mmol/L (3.3-5.1)
--- NOTE | 2024-11-13 03:42 | PCM.HP.STD ---
HPI - General General Date of Admission: 11/13/24 Date of Service: 11/13/24 Chief Complaint: Syncopal event, hypotension, diarrhea. HPI Narrative The patient is a 59 y/o M w/ PMHx: Diabetes mellitus type II, Obesity, PAF, Chronic anemia/Fe deficiency anemia, PAF, CKD stage III unclear subtype per GFR trending, NIMCO on CPAP, HFrEF, HTN, HLD, COPD with Chronic Hypoxic Respiratory Failure (3L NC), GERD, Metastatic renal cell carcinoma to the bone/chest wall mass s/p prior right nephrectomy, recently discharged on 10/21/24 following evaluation for acute on chronic diarrhea with positive occult exacerbated by anticoagulation with hypotension secondary to GI losses/dehydration with diarrhea felt likely related to his Ozempic or Farxiga with improvement in the hospital with unremarkable stool studies with no fever or leukocytosis with temporary hold on his Bumex and Aldactone at discharge for an additional 24 hours then resumption and eventual restart on his Eliquis with outpatient repeat labs who now re-presents to the [facility] ED on 11/13/2024 with episode of syncope while walking to the toilet with continued lightheadedness and dizziness with persistent ongoing diarrhea since his discharge he notes prompting EMS call with significant noted hypotension with systolic in the 50s prompting transition for evaluation. Patient reports that he actually had at least 2 syncopal events the day prior to this event. He does report that he had diarrhea with this medication however he thinks that the addition of his Ozempic versus his Farxiga has made it much worse. Patient upon evaluation notes that he feels significantly improved since initial ED arrival following hydration. Workup in the ED included T97.9, heart rate 63, BP initially 65/52 with a MAP of 56, respiratory rate 18, 95% on 3 L nasal cannula-->BP 91/47 with most recent repeat vitals BP 81/56, respiratory rate 19, heart rate 88, 99% on 3 L nasal cannula, CBC with WC 7.7, hemoglobin 13.8, platelet 325 without marked shift, unremarkable coags aside PT 19.6, CMP with Comvax at 19.4, anion gap 17, BUN/creatinine 38/3.76, GFR 18, D bili 0.31, AST 44 otherwise not marked appearing hepatic profile, magnesium 1.7, phosphorus 3.4, BNP 540, stool occult pending upon request evaluation of patient, chest x-ray with expansile mass associated with the right lateral sixth rib with otherwise no acute cardiopulmonary findings, rapid SARS COVID/influenza/RSV PCR negative, CT of the brain with moderate chronic mucosal inflammatory changes of the left maxillary sinus with associated secretions, CT chest with unchanged expansile lytic/destructive lesion in the axillary portion of the right sixth rib measuring 3.5 x 4.9 cm, moderate coronary calcifications, diffuse spondylosis, unchanged cardiomegaly and unchanged mild pericardial effusion, EKG with rate controlled atrial fibrillation with no acute evidence of ischemia. In the ED patient ministered 2 L normal saline. [facility] Medical History Diabetes mellitus, type 2 Obesity (BMI 30.0-34.9) HLD (hyperlipidemia) Anemia Atrial fibrillation CKD (chronic kidney disease), stage III Systolic CHF Tobacco use NIMCO on CPAP Metastatic renal cell carcinoma to bone Renal cell cancer Hyperlipidemia GERD (gastroesophageal reflux disease) COPD (chronic obstructive pulmonary disease) Hypertension Home Medications ?Medication ?Instructions ?Recorded ?Last Taken ?Type albuterol sulfate 2.5 mg/3 mL 2.5 mg (3 mL) inhalation PRN PRN 06/29/22 Unknown Rx (0.083 %) solution for nebulization Shortness Of Breath #75 mL ferrous sulfate 325 mg (65 mg 325 mg PO BID supplement #30 tabs 06/29/22 Unknown Rx iron) tablet fluticasone fur. 100 mcg-umeclid 1 inh inhalation DAILY breathing 06/29/22 Unknown Rx 62.5 mcg-vilant 25 mcg #28 ea inhalat.powder (Trelegy Ellipta) pantoprazole 40 mg tablet,delayed 40 mg PO DAILY gerd #30 tabs 06/29/22 Unknown Rx release rosuvastatin 40 mg tablet 40 mg PO DAILY cholesterol #30 tabs 06/29/22 Unknown Rx losartan 50 mg tablet 50 mg PO DAILY blood pressure #90 09/29/22 Unknown Rx tabs spironolactone 25 mg tablet 25 mg PO DAILY diuretic #90 tabs 09/29/22 Unknown Rx carvedilol 12.5 mg tablet 12.5 mg PO BID blood pressure #180 06/04/24 Unknown Rx TABLETS semaglutide 0.25 mg or 0.5 mg (2 2 mg subcut QWEEK diabetes 06/20/24 Unknown History mg/3 mL) subcutaneous pen injector (Ozempic) cabozantinib 20 mg tablet 20 mg PO QDAY cancer 08/09/24 Unknown History apixaban 5 mg tablet (Eliquis) 5 mg PO BID blood thinner #60 tabs 08/14/24 Unknown Rx Handicap Placard #1 ea 10/02/24 Unknown Rx bumetanide 2 mg tablet 2 mg PO ONCE water pill 10/02/24 Unknown History calcitriol 0.25 mcg capsule 0.25 mcg PO QDAY supplement 10/02/24 Unknown History dapagliflozin propanediol 5 mg 5 mg PO QDAY CKD 10/02/24 Unknown History tablet (Farxiga) tizanidine 4 mg capsule 4 mg PO Q8H PRN muscle spasticity 10/02/24 Unknown History loperamide 2 mg capsule 2 mg PO 4X/DAY PRN PRN diarrhea 10/19/24 Unknown History mirtazapine 15 mg tablet 15 mg PO QHS antidepressant 10/19/24 Unknown History Allergy/AdvReac Type Severity Reaction Status Date / Time lisinopril Allergy Severe Angioedema Verified 11/13/24 01:34 guaifenesin (From Mucinex) Allergy Intermediate Bleeding Verified 11/13/24 01:34 aspirin (ASA) Allergy Other Verified 11/13/24 01:34 mushroom (mushrooms) Allergy Hives Verified 11/13/24 01:34 Penicillins Allergy PT UNSURE Verified 11/13/24 01:34 OF REACTION shellfish derived Allergy Hives Verified 11/13/24 01:34 Family History Father Cancer Mother Heart disease Hypertension Myocardial infarction Surgical History History of cardiac cath (~07/2021) History of cardioversion (~09/2021) History of nephrectomy, right Social History household members: spouse and family Smoking Status: Current every day smoker tobacco type: cigarettes Electronic Cigarette Use: with nicotine alcohol intake: current alcohol intake frequency: holidays/special occasions only substance use type: does not use ROS ROS Narrative Admission Review of Systems: CONSTITUTIONAL: No weight loss, fever, chills, + weakness or fatigue. HEENT: + Lightheadedness, dizziness, syncopal event. Eyes: No visual loss, blurred vision, double vision or yellow sclerae. Ears, Nose, Throat: No hearing loss, sneezing, congestion, runny nose or sore throat. SKIN: No rash or itching, lesions, wounds. CARDIOVASCULAR: + Chronic chest pain with metastatic disease to the ribs, lightheadedness/dizziness with syncopal event. No palpitations, edema, orthopnea. RESPIRATORY: No shortness of breath, cough or sputum, wheezing, hemoptysis. GASTROINTESTINAL: + Diarrhea, abdominal pain. No anorexia, nausea, vomiting, melena, BRBPR. GENITOURINARY: No dysuria, frequency, urgency or retention. NEUROLOGICAL: No headache, dizziness, syncope, paralysis, ataxia, numbness or tingling in the extremities, focal weakness, change in bowel or bladder control, seizure. MUSCULOSKELETAL: + muscle, back pain, joint pain or stiffness. HEMATOLOGIC: + Chronic anemia, easy bleeding/bruising. LYMPHATICS: No enlarged nodes. No history of splenectomy. PSYCHIATRIC: + History of anxiety and depression. ENDOCRINOLOGIC: No reports of sweating, cold or heat intolerance. No polyuria or polydipsia. ALLERGIES: + History of hives, angioedema. Vital Signs Vital Signs Vital Signs: 11/13/24 01:25 11/13/24 01:25 11/13/24 01:55 Temperature 97.9 F Temperature Source Oral Pulse Rate 63 90 Respiratory Rate 18 19 H Blood Pressure 65/52 L 70/50 L 91/47 L Blood Pressure Mean 56 56 61 Pulse Ox 100 95 Oxygen Delivery Method Nasal Cannula Oxygen Flow Rate (L/min) 3 11/13/24 02:25 11/13/24 02:30 11/13/24 03:00 Temperature Temperature Source Pulse Rate 80 89 86 Respiratory Rate 20 H 20 H 19 H Blood Pressure 143/92 H 87/72 L 80/55 L Blood Pressure Mean 109 77 63 Pulse Ox 96 97 99 Oxygen Delivery Method Nasal Cannula Nasal Cannula Nasal Cannula Oxygen Flow Rate (L/min) 3 3 3 11/13/24 03:28 Temperature Temperature Source Pulse Rate 88 Respiratory Rate 19 H Blood Pressure 81/56 L Blood Pressure Mean 64 Pulse Ox 99 Oxygen Delivery Method Nasal Cannula Oxygen Flow Rate (L/min) 3 Weight Weight: 238 lb 12.17 oz Body Mass Index (BMI) 33.3 Physical Exam Narrative Physical Examination: General: Awake, alert, oriented x 3 and cooperative, laying in ED bed, notes he feels improved from initial ED arrival however systolic is still less than 90. Skin: Normal color, normal turgor, no icterus, no cyanosis except occasional abrasion. HEENT: AT/NC, EOMI, PERRLA, moderately dry MM, no carotid bruits or JVD noted. Lungs: Mildly diminished, greater bases, supplemental 3 L nasal cannula in place, no appreciated rales, ronchi or wheezing. Heart: Regular rate and rhythm; no gallop, rub audible. Abdomen: Soft, obese, NTTP, ND, mildly hyperactive BS, no appreciated HSM. Extremities: No cyanosis, no clubbing, no significant distal edema, does have some bilateral lower extremity discomfort/neuropathy with palpation. Neurological: Patient awake, alert, oriented as noted, cognitive function intact; pupils equally reactive to light and accommodation, cranial nerves grossly normal, moving all 4 extremities, no focal deficits, strength severely globally decreased Psychiatric: Affect appears fatigued otherwise normal, no acute evidence of depressive or anxiety feelings but does have underlying history. Results Lab / Micro Data 11/13/24 01:35 11/13/24 01:35 Labs: Laboratory Results - last 24 hr 11/13/24 01:35: WBC 7.7, RBC 4.23 L, Hgb 13.8, Hct 40.6, MCV 96.0 H, MCH 32.6 H, MCHC 34.0, RDW Std Deviation 63.6 H, RDW Coeff of Lizzie 18.3 H, Plt Count 325, MPV 10.1, Immature Gran % (Auto) 0.400, Neut % (Auto) 70.0, Lymph % (Auto) 15.7 L, Towner % (Auto) 8.2, Eos % (Auto) 5.4 H, Baso % (Auto) 0.3, Absolute Neuts (auto) 5.4, Absolute Lymphs (auto) 1.21, Nucleated RBC % 0, PT 19.6 H, INR 1.6, APTT 30.0, Sodium 135, Potassium 4.2, Chloride 99, Carbon Dioxide 19.4 L, Anion Gap 17 H, BUN 38 H, Creatinine 3.76 H, Estim Creat Clear Calc 26.15 L, Est GFR (MDRD) Non-Af 18 L, BUN/Creatinine Ratio 10.1, Glucose 100 H, Calcium 9.0, Phosphorus 3.4, Magnesium 1.7, Total Bilirubin 0.72, Direct Bilirubin 0.31 H, AST 44 H, ALT 46, Alkaline Phosphatase 51, NT pro BNP II 540, Total Protein 6.9, Albumin 3.8, Globulin 3.1, Blood Type O POSITIVE, Antibody Screen NEGATIVE Micro: Microbiology 11/13/24 01:53 Mucosa - Nose SARS-CoV-2, Influenza & RSV (PCR) - Final Imaging Radiology Impression Brain CT 11/13/24 02:12 IMPRESSION: No CT evidence for acute brain abnormality. Moderate chronic mucosal inflammatory changes of the left maxillary sinus with associated secretions suggestive of acute sinusitis. Reading Location: [place] [address] Chest X-Ray 11/13/24 02:15 IMPRESSION: 1. No acute cardiopulmonary findings. 2. Expansile mass associated with the right lateral 6th rib. Reading Location: [facility] Chest CT 11/13/24 02:40 IMPRESSION: Coronary artery calcification (CAC) is is present Unchanged expansile lytic/destructive lesion in the axillary portion of the right 6th rib measuring 3.5 x 4.9 cm, possibly metastatic disease. Moderate coronary artery calcifications. Diffuse spondylosis. Unchanged cardiomegaly. Unchanged mild pericardial effusion. Reading Location: [place] [address] Assessment & Plan Assessment/Plan (1) Syncope: PLAN: Plan The patient is a 59 y/o M w/ PMHx: Diabetes mellitus type II, Obesity, PAF, Chronic anemia/Fe deficiency anemia, PAF, CKD stage III unclear subtype per GFR trending, NIMCO on CPAP, HFrEF, HTN, HLD, COPD with Chronic Hypoxic Respiratory Failure (3L NC), GERD, Metastatic renal cell carcinoma to the bone/chest wall mass s/p prior right nephrectomy, recently discharged on 10/21/24 following evaluation for acute on chronic diarrhea with positive occult exacerbated by anticoagulation with hypotension secondary to GI losses/dehydration with diarrhea felt likely related to his Ozempic or Farxiga with improvement in the hospital with unremarkable stool studies with no fever or leukocytosis with temporary hold on his Bumex and Aldactone at discharge for an additional 24 hours then resumption and eventual restart on his Eliquis with outpatient repeat labs who now re-presents to the [facility] ED on 11/13/2024 with episode of syncope while walking to the toilet with continued lightheadedness and dizziness with persistent ongoing diarrhea since his discharge he notes prompting EMS call with significant noted hypotension with systolic in the 50s prompting transition for evaluation. #1. Syncopal Event secondary to suspected GI losses with ongoing diarrhea and possible vasovagal event concurrently: EKG in ED w/ atrial fibrillation rate controlled without evidence of acute ischemia, CXR w/ no acute cardiopulmonary findings with stable rib mass, initial trop normal. 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 difficile, enteric assessment although previously with his diarrhea these were normal and 10/19/2024 of note ova and parasite labs are still pending thus we will hold on repeating ova and parasite at this time and also previously patient had transiently been on Flagyl but this was discontinued given everything had returned unremarkable and suspect related to his cancer treatment, procalcitonin requested, will initiate and continue loperamide, maintain on PPI, will add aggressive lactobacillus regimen, maintain on fall precautions, PT/OT/case management consulted for discharge planning. UA requested. #2. VIMAL on chronic Kidney Disease Stage III, unclear subtype per GFR trending: Likely secondary to hypoperfusion, GI losses, admission BUN/Cr 38/3.76, baseline renal function primarily 1.6-1.9, most recently noted 10/21/2024 creatinine 1.87, will continue aggressive hydration, hold nephrotoxic medication, urine sodium and creatinine requested, repeat BMP in AM. If clinically worsening or not improving low threshold to involve nephrology. #3. Metastatic renal cell carcinoma: Noted to be metastatic to the bone/chest wall mass (biopsy-proven), status post previous right nephrectomy, following with Dr. Botello with most recent visit noted 06/20/2024, initiated upon diagnosis in 2021 on a clinical trial with cabozantinib and nivolumab however developed worsening hypotension therefore transiently regimen was held in addition to pneumonitis eventually transitioning off the clinical trial secondary to insurance change undergoing palliative radiation therapy to the lumbar spine 12/2021 eventually undergoing a radical nephrectomy 02/06/2022 at with most recent previous to current presentation imaging per oncology CT chest/10/30 with a stable right sixth rib metastases continued on at this time cabozantinib 20 mg daily with plan follow-up CT chest/abdomen/pelvis in 6 months complicates presentation, magnesium and phosphorus levels requested, as noted above will hold patient home cabozantinib regimen as contributing to severe diarrhea as well as hypotension and possibly primary etiology, encourage continued follow-up with oncology as previously arranged. Will need to closely follow-up with oncology and would hold this drug at discharge. #4. HFpEF: Most recent echocardiogram noted 09/25/2024 with normal LV size, moderate concentric LVH, LVEF 50%, borderline global hypokinesis LV, mild to moderate MVI, mild TVI, moderate EDITH. Holding Eliquis, continue statin, holding all hypertensive regimen including diuretic therapies, judiciously hydrating and will continue to monitor for overload. #5. Chronic macrocytic anemia/iron deficiency anemia: Admission hemoglobin 13.8, MCV 96, baseline hemoglobin had previously been 13-14 however during recent admission patient with component of GI bleed with severe diarrhea with 10/20/2024 hemoglobin 12.9 and 10/21/2024 follow-up hemoglobin 11.9 with temporary hold on Eliquis at that time, resumed outpatient following discharge after wait time, repeat guaiac pending as noted, will continue to trend CBC. #6. Chronic COPD with chronic hypoxic respiratory failure 3 L NC: Will maintain on 3 L NC chronic home oxygen supplementation, will temporally hold on inhaler and in the interim transition to ATC duonebs, PRN albuterol, HOB, IS parameters. #7. Hypertension: Given presentation with hypertension holding all hypertensive regimen, add back judiciously once clinically appropriate. #8. Hyperlipidemia: Will continue patient on statin therapy. #9. Anxiety and depression: Will continue patient home mirtazapine regimen. #10. PAF: EKG in the ED with rate controlled atrial fibrillation. Will temporally hold Eliquis given patient had significant diarrhea previously with positive guaiacs while awaiting current repeat guiac to be cautious although Hgb stable from recent discharge. Also, temporarily holding Coreg given hypotension but add back once able. #11. Obesity: Weight loss and lifestyle changes encouraged. #12. Diabetes mellitus type II: Hold oral home regimen, ADA diet, accu checks w/ ISS. #13. NIMCO: CPAP nightly if amenable. #14. GERD: Will continue patient PPI. #15. DVT prophylaxis: SCDs, temporally hold Eliquis given recurrent severe diarrhea. #16. CODE status: Patient CHAITANYA is his and living will is currently in place. Discussed CODE status at length including difference between FULL code, DNR-CCA and DNR-CC status. Following discussions about the differences in these status, requested Full Code status. Advanced Care Planning Face to Face Time: 16 minutes. Charges/Coding Visit Charges Inpatient E&M: 53969 Init Hosp L3 Procedures Hospitalists Procedures: 84524 Advncd Care Plan 30 Min
--- OUTSIDE RECORDS SUMMARY | 2024-11-13 04:27 | XMS RPT_ITS | CCD ---
Author Organization [facility] ion Partnership [facility] Care Team Providers Care Electronic Scale Subassembler Name Role Phone Unavailable, Family Physician Primary Care Physi terese Unavailable Jillian Maurer DO Primary Care Provider [phone] Daksha Turner MD Primary Care Provider Sumi HAHN, Sary Unavailable Unavailable Lalo Acevedo MD Unavailable Rahul Knight RN Unavailable Madiha vailable Bruno [facility], Safia Unavailable Daksha Turner MD Primary Care Provider Sumi HAHN, Sary Unavailable Unavailable Lalo Acevedo MD Unavailable Rahul Knight RN Unavailable Madiha vailable Bruno [facility], [place]ia Unavailable Daksha Turner MD Primary Care Provider Lalo Acevedo MD Unavailable Rahul Knight RN Unavailable Madiha vailable Haylee Wilburn MD Unavailable Alfredo Xavier MD Unavailable [phone] Haylee Wilburn MD Unavailable Unavailable Primary [...] CLEMENT, Alfredo Sherwood Unavailable Daksha Turner Unavailable [phone] Unavailable, Family Physician Primary Care Un available Unavailable, Family Physician Consulting Un available Siri Harris Attending Unavailable Daksha Turner Unavailable Andre Mota Unavailable Unavailable [place], Endrit Unavailable Aravind Hernandez Unavailable Unavailable Alyssa [...] Care Unavailabl e ISABEL DAY Admitting Unavailable ISBAEL DAY Attending Unavailable DAWIT URBINA MD Attending [...] ANGELA Attending Unavailable ORNSTEIN, KENNETH Referring Unavailable DAKSHA [...] Care Unavailabl e MOUDGIL, LALO Attending Unavailable MOSHANATGIL, LALO Referring Unavailable MORAYAL, LALO Referring Unavailable DAKSHA TURNER Primary Care Unavailabl e MOSHANTAGIL, LALO Attending Unavailable MOUDGIL, LALO Referring Unavailable DAKSHA TURNER Primary Care Unavailabl e DAKSHA TURNER Primary Care Unavailabl e ORNSTEIN, EKNNETH Referring Unavailable DAKSHA MELO Referring Unavaila DAKSHA [...] Dr. Daksha Turner MD Attending Provider [phone] Johnny CLEMENT, Dr. Candelaria Referring Provider Dr. Isidra Chiu DO Attending Provider Dr. Isidra Chiu DO Referring Provider Johnny CLEMENT, Dr. Candelaria Primary Care Provider Johnny CLEMENT, Dr. Candelaria Attending Provider Johnny CLEMENT, Dr. Candelaria Referring Provider [phone] Ayan CLEMENT, Dr. Pierson Attending Provider [phone] Ayan CLEMENT, Dr. Pierson Referring Provider Johnny CLEMENT, Dr. Candelaria Primary Care Provider Khoa SOFT IRON INSPECTOR-C, Gini Attending Provider [phone] Khoa SOFT IRON INSPECTOR-C, Gini Referring Provider [phone] Jimenez CLEMENT, Dr. De Leon Attending Provider Khoa SOFT IRON INSPECTOR-C, Gini Other Provider Johnny CLEMENT, Dr. Candelaria Primary Care Provider Johnny CLEMENT, Dr. Candelaria Referring Provider Johnny CLEMENT, Dr. Candelaria Attending Provider Johnny CLEMENT, Dr. Candelaria Primary Care Provider Johnny CLEMENT, Dr. Candelaria Referring Provider Manuel CLEMENT, Dr. Martin Referring Provider Unavailab raymon Jackson MD, Dr. Martin Emergency Provider Unavailab le de Dax DO, Dr. Lowe Admit Provider Unavail able de Dax , Dr. Lowe Attending Provider Unav ailable de Dax DO, Dr. Lowe Other Provider Unavail able Valerie CLEMENT, Dr. Marquise Barragan Attending Provider Valerie CLEMENT, Dr. Marquise Barragan Other Provider Yifan SOFT IRON INSPECTOR-CKassy Attending Provider Daksha Turner Primary Care Unavailable Khoa SOFT IRON INSPECTOR, Gini Referring Unavailable Khoa SOFT IRON INSPECTOR, Gini Attending Unavailable Daksha Turner Referring Unavailable Daksha Turner Attending Unavailable Johnny, Daksha Primary Care Unavailable Daksha Turner Referring Unavailable Johnny, Daksha Primary Care Unavailable Dangelo Botello Attending Unavailable Johnny, Daksha Primary Care Unavailable Munira, Sachin Attending Unavailable Daksha Turner Primary Care Unavailable Dangelo Botello Referring Unavailable Dangelo Botello Attending Unavailable RanneyDaksha Attending Unavailable Ranney, Christopher Referring [place]available [place] Unavailable Ranney, Christopher Primary Care [...] Referring Unavailable Ranney, Christopher Primary Care Unavailable [place] Unavailable Isidra Chiu Attending Unavailable Isidra Chiu Referring Unavailable Ranney, Christopher Referring Unavailable Ranney, Christopher Attending Unavailable [place] Primary Care Unavailable Ranney, Christopher Primary Care Unavailable Khoa KUMARI, Gini Attending Unavailable Gini Couch NP Referring Unavailable Khoa KUMARI, Gini Attending Unavailable Ranney, Christopher Primary Care Unavailable Gini Couch NP Referring Unavailable Ranney, Christopher Primary Care Unavailable PraDangelo li Referring Unavailable PrahDangelo Attending Unavailable [place], [place] Primary Care Unavailable Kassy Saha Attending Unavailable Kassy Saha Referring Unavailable [place] Primary [facility] Unavailable Veronica Jackson Referring Unavailable Marquise Padilla Attending Unavailable Rahul Chavez Consulting Unavailable Rahul Chavez Admitting Unavailable Marquise Padilla Consulting Unavailable Ranney, Christopher Referring Unavailable Ranney, Christopher Primary Care Unavailable Primo Jackson Attending Unavail able Ranney, Christopher Primary Care Unavailable Khoa SOFT IRON INSPECTOR, Gini Attending Unavailable Ranney, Christopher Primary Care [...] Turner Referring Unavailable Daksha Turner Attending Unavailable [place] [facility] Unavailable Allergies Allergy Classification Reported Allergen(s) Allergy Type Date of Onset Reaction(s) Facility (20 sources) Aspirin; Translations: [Aspirin TABS] Drug Allergy 5 Hives, Intolerance [facility] (20 sources) Lisinopril; Translations: [Lisinopril TABS] Drug Allergy 3 Angioedema [facility] (20 sources) Penicillins; Translations: [Penicillins] Allergy to substance 4 Intolerance [facility] (20 sources) Shellfish; Translations: [shellfish derived] Allergy to substance 0 Anaphylaxis [facility] (20 sources) Shellfish; Translations: [SHELLFISH CONTAINING PRODUCTS] Drug Allergy 0 Anaphylaxis, [facility] (20 sources) cultivated mushroom extract; Translations: [MUSHROOM] Drug Allergy 2 [facility] (3 sources) Aluminum aspirin Drug Allergy 9 [facility] (3 sources) Shellfish-deriv ed Products; Translations: [Shellfish-deri angy Products] Allergy to drug (finding) [facility] [place] [facility] 400 DO Work Phone: (1 source) Mushroom (edible) Unknown [facility] (1 source) Penicillin Drug Allergy Unknown [facility] (1 source) Shellfish Unknown [facility] (20 sources) guaiFENesin Drug Allergy 3 Bleeding [facility] (1 source) Aspirin Drug Allergy 5 [facility] (1 source) guaiFENesin Drug Allergy 5 [facility] (1 source) Lisinopril Drug Allergy 5 [facility] (1 source) Mushroom (edible) Drug allergy (disorder) 5 [facility] Medications Current Medications Medication Drug Class(es) Dates Sig (Normalized) Sig (Original) acetaminophen 500 mg oral tablet (20 sources) Start: 07-15-2021 take 2 tablets by mouth every six hours as needed acetaminophen (TYLENOL EXTRA STRENGTH) 500 mg tablet Take 2 tablets by mouth every 6 hours as needed for pain. 100 tablet 07/15/2021 Active Comment on above: Take 2 tablets by [facility] every 6 hours as needed [...] by mouth once daily. once daily. calcitriol 0.57944 mg oral capsule (5 sources) Vitamin D3 [...] mg dose. Take 3 tablets by mo [facility] twice daily. once daily. cetirizine hydrochloride 5 [...] sources) Anticholinergic, Corticosteroid, beta2-Adrenergic Agonist Start: 06-29-2022 Zzuyoqwamng-Oadedqitj-S ilanter (Trelegy Ellipta) 100-62.5-25 mcg blister with [...] 29, 2022 11:13am Start: 05-22-2022 End: 06-29-2022 Nylzmlqkteh-Vdhodnhjs-Hmooke er (Trelegy Ellipta) 100-62.5-25 mcg blister with device Discontinued 1 NMA INHALATION DAILY May 22, 2022 12:00am June 29, 2022 11:14am Start: 05-22-2022 End: 06-29-2022 Hofebfjphnq-Mnblxcxzu-Emofut er (Trelegy Ellipta) 100-62.5-25 mcg blister with device Discontinued 1 INH INHALATION DAILY May 21, 2022 11:00pm June 29, 2022 10:14am Start: 05-22-2022 End: 06-29-2022 Ywurzceogao-Hgndzosbd-Akmwhg er (Trelegy Ellipta) 100-62.5-25 mcg blister with [...] 10 mL injection (DEFINITY) polyethylene glycol 3350 71450 mg powder for oral solution (16 sources) [...] Start: 02-06-2022 End: 04-09-2022 polyethylene glycol 3350 (WA RALAX, GLYCOLAX) 17 gram/dose powder Comment on above: Dilute this medicati on with liquid before administration.It is very important that you take or use this exactly as directed. Do not skip doses or discontinue unless directed by your doctor. polyethylene glycol 3350 775530 mg / potassium chloride 2970 mg / sodium bicarbonate 6740 mg / sodium chloride 5860 mg / sodium sulfate 29657 mg powder for oral solution (1 source) [...] Start: 10-02-2024 take 1 capsule by mo [facility] twice daily as needed Tizanidine 4 mg [...] Comment on above: [facility] hours as needed. torsemide 20 [...] tablet by mouth once daily Atenolol * (OTGMUUFU16 MG) 25 MG TABLET Discontinued 25 MG [...] Form) Start: 03-25-2022 take 1 tablet by klelie th every twelve hours axitinib (INLYTA) 5 [...] needed for muscle spasms Cyclobenzaprine HCl * (FMTNARYTVDKSLPW90 MG) 10 MG TABLET Discontinued 10 MG [...] tablet by mouth once daily Hydrochlorothiazide * (BIEDWYXKTUSYBIJ54 MG) 25 MG TABLET Discontinued 25 MG [...] Comment on above: Take 1 capsule by [facility] once daily. iv contrast (will [...] 2019 12:00am December 09, 2021 7:58am nystatin 452780 unt/ml oral suspension (20 sources) Polyene Antifungal Start: 3 End: 5 Nystatin 100,000 unit/mL suspension Discontinued 527444 U PO DAILY 60 0 June 29, 2022 12:00am August 14, 2024 1:19pm administer 1/2 of dose in each side of the mouth Start: 05-20-2022 End: 05-25-2022 Nystatin 100,000 unit/mL gianluca pension Discontinued [id number] U PO DAILY 35 7 0 May [...] (KLOR-CON ) 20 mEq packet Potassium Chloride* ([id number]) 20 MEQ PACKET Active 20 MEQ PO 0 07/22/2021 Discontinued (Clinical Decision) Potassium Chlori de* ([id number]) 20 MEQ PACKET Active 20 MEQ PO Comment on above: Take 1 tablet by kellie th once daily. Potassium Chloride* ([id number]) 20 MEQ PACKET Active 20 MEQ PO predniSONE 20 mg oral tablet (20 sources) Start: 01-20-2022 End: 02-17-2022 predniSONE (DELTASONE) 20 mg tablet Start: 09-26-2021 take 2 tablets by mo uth once daily predniSONE (DELTASONE) 20 mg tablet Take 2 tablets by mouth once daily. 90 tablet 1 09/26/2021 Active Start: 09-11-2021 take 3 tablets by mo [facility] once daily predniSONE (DELTASONE) 20 mg tablet Take 3 tablets by mouth once daily. 90 tablet 1 09/11/2021 Suspended Comment on above: Take 3 tablets by mo [facility] once daily. Take 2 tablets by mo [facility] once daily. rosuvastatin calcium 40 mg oral [...] 2:06pm Start: 02-10-2022 take 1 tablet by [facility] once daily spironolactone 25 mg oral tablet ; 1 tab(s) orally once a day Quantity: 0 Refills: 0 Ordered: 10-Feb-2022 Luís Siegel Start: 10-Feb-2022 Generic Substitution Allowed Start: 12-07-2021 take 12.5 mg by mout once daily Spironolactone Active 12.5 MG PO DAILY December 06, 2021 11:00pm Start: 09-27-2021 take 0.5 tablet by [facility] once daily spironolactone (ALDACTONE) 25 mg tablet [...] Comment on above: Take 1 tablet by kellei once daily. 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] Onset: 2 Episodic Other aftercare (1 source) Other penitentiary (current) drug therapy; Translations: [Other penitentiary (current) drug therapy] Onset: 2 Episodic Other aftercare (6 sources) Long-term current use of anticoagulant; Translations: [FCI (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 of 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] 10-19-2024 Episodic Other [...] Respiratory failure; insufficiency; arrest (adult) (2 sources) Vhpyp-sz-ttkiaeg respiratory failure 02-07-2022 Chronic Respiratory failure; insufficiency; [...] ERROR Unclassified (2 sources) RIGHT LAPAROSCOPIC NEPHRECTOMY (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 [place], [place], [id number] Gastroenterology Visit Repor ton 10-30-2024 Gastroenterology Visit Report [facility]enterology [address] [place] [address] OFFICE VISIT Date of Service: 10/30/24 MR#: [id number] Acct: [id number] Name: YEFRI YANEZ Rep #: [id number] : 1965 Provider: JARVIS huerta Age/Sex: 59/M [place] [facility] [place]: Signed Intake Vital Signs 10/19/24 13:15 10/30/24 14:41 Height 5 ft 11 in 5 ft 11 in Weight: 250 lb 4 oz BMI 34.9 BP 88/58 L Respiration 16 Pulse 91 Temp 98.2 F Temp Source Temporal Pulse Oximetry (%) 95 Oxygen Delivery Method room air Intake Visit Reasons: Hospital FU Chief Complaint: diarrhea and bloating Director Speech And Hearing Required: No Accompanied by: Self Is patient [...] Rx gram-22.74 gram-6.74 gram-5.86 gram solution (Golytely) [facility] Medical History (Updated 10/30/24 @ 15:12 by Kassy Saha, SOFT IRON INSPECTOR-C) Anemia Atrial fibrillation Abnormal chest x-ray Warfarin-induced [...] that h (more content not included)... Normal [facility] Absolute lymphocyte countOrd ered By: Marquise Padilla on 10-21-2024 Lymphocytes Auto (Unsp spec) [#/Vol] 1.17 10*3/uL 0.83-4.51 [facility] Absolute neutrophil countOrd ered By: Marquise Padilla on 10-21-2024 Neutrophils (Bld) [#/Vol] 3.3 10*3/uL 2.0-7.7 [facility] Anion gap in Serum or Plasma Ordered By: Marquise Padilla on 10-21-2024 Anion gap [Moles/Vol] 9 mmol/L 5- [facility] Automated lymphocyte count a s percentage of total leukocytesOrdered By: Marquise Padilla on 10-21-2024 Lymphocytes/100 WBC Auto (Unsp spec) 22.5 % - [facility] BUN/creatinine ratioOrdered By: Marquise Padilla on 10-21-2024 Urea nitrogen/Creatinine [Mass ratio] 10.3 mg/mg - [facility] Basic Metabolic Profile (BMP )on 10-21-2024 BUN/CRE 10.3 RATIO Normal - [facility] Comment on above: Performed By: #### L 500.2500, L100.0100 ####[facility] [address] [place], [address] Calcium [Mass/Vol] 8.4 mg/dL Normal 7.6-11.0 [facility] Comment on above: Performed By: #### L 500.2500, L100.0100 ####[facility] [address] [place], [address] Chloride [Moles/Vol] 108 mmol/L Normal 98-108 [facility] Comment on above: Performed By: #### L 500.2500, L100.0100 ####[facility] [address] [place], [address] CO2 [Moles/Vol] 18.2 mmol/L Low 21.0-32.0 [facility] Comment on above: Performed By: #### L 500.2500, L100.0100 ####[facility] [address] [place], [address] Creatinine [Mass/Vol] 1.87 mg/dL High 0.70-1.20 [facility] Comment on above: Performed By: #### L 500.2500, L100.0100 ####[facility] [address] [place], [address] ECRCL 54.49 ml/min Normal 50-250 [facility] Comment on above: Performed By: #### L 500.2500, L100.0100 ####[facility] [address] [place], [address] GAP 9 Normal 5-15 [facility] Comment on above: Performed By: #### L 500.2500, L100.0100 ####[facility] [address] [place], [address] GFR/1.73 sq M.predicted among non-blacks MDRD (S/P/Bld) [Vol rate/Area] 41 mL/min/{1.73_m2} Low >60 [facility] Comment on above: Result Comment: mL/m in/1.73m2 CKD-EPI Creatinine Equation (2020) Performed By: #### L 500.2500, L100.0100 ####[facility] [address] [place], [address] Glucose [Mass/Vol] 106 mg/dL High 70-99 [facility] Comment on above: Performed By: #### L 500.2500, L100.0100 ####[facility] [address] [place], [address] Potassium [Moles/Vol] 4.4 mmol/L Normal 3.3-5.1 [facility] Comment on above: Result Comment: Hemo lysis present, Results??could be affected. ?? Performed By: #### L 500.2500, L100.0100 ####[facility] [address] [place], [address] Sodium [Moles/Vol] 136 mmol/L Normal 133-145 [facility] Comment on above: Performed By: #### L 500.2500, L100.0100 ####[facility] [address] [place], [address] Urea nitrogen [Mass/Vol] 19 mg/dL Normal 4-19 [facility] Comment on above: Performed By: #### L 500.2500, L100.0100 ####[facility] [address] [place], [address] Basophil percentageOrdered B y: Marquise Padilla on 10-21-2024 Basophils/100 WBC (Bld) 0.4 % 0-1 [facility] Bedside Glucoseon 10-21-2024 FINGERSTICK GLU 96 mg/dL Normal 74-106 [facility] Comment on above: Result Comment: ANN MONTERO OF PATIENT CARE PER NURSING PROTOCOL Performed By: #### L 501.080 ####[facility] [address] [place], [address] CBC W/Diff, Automatedon 10-06 Absolute Lymph 1.17 X10 3/uL Normal 0.83-4.51 [facility] Comment on above: Performed By: #### L 500.2500, L100.0100 ####[facility] [address] [place], [address] Absolute Neut 3.3 X10 3/uL Normal 2.0-7.7 [facility] Comment on above: Performed By: #### L 500.2500, L100.0100 ####[facility] [address] [place], [address] Basophils/100 WBC (Bld) 0.4 % Normal 0-1 [facility] Comment on above: Performed By: #### L 500.2500, L100.0100 ####[facility] [address] [place], [address] Eosinophils/100 WBC (Bld) 4.0 % Normal 0-5 [facility] Comment on above: Performed By: #### L 500.2500, L100.0100 ####[facility] [address] [place], [address] Erythrocyte distribution width (RBC) [Ratio] 18.3 % High 11.6-14.6 [facility] Comment on above: Performed By: #### L 500.2500, L100.0100 ####[facility] [address] [place], [address] Hematocrit (Bld) [Volume fraction] 35.2 % Low 40-54 [facility] Comment on above: Performed By: #### L 500.2500, L100.0100 ####[facility] [address] [place], [address] Hemoglobin (Bld) [Mass/Vol] 11.9 g/dL Low 13.0-16.5 [facility] Comment on above: Performed By: #### L 500.2500, L100.0100 ####[facility] [address] [place], [address] IG% 0.400 Normal 0.0-0.9 [facility] Comment on above: Result Comment: IG% - Immature Granulocytes (promyelocytes, myelocytes and metamyelocytes) > 1% indicates that a LEFT SHIFT is Present. Performed By: #### L 500.2500, L100.0100 ####[facility] [address] [place], [address] Lymphocytes/100 WBC (Bld) 22.5 % Normal 19-41 [facility] Comment on above: Performed By: #### L 500.2500, L100.0100 ####[facility] [address] [place], [address] MCH (RBC) [Entitic mass] 32.7 pg High 27.0-32.0 [facility] Comment on above: Performed By: #### L 500.2500, L100.0100 ####[facility] [address] [place], [address] MCHC (RBC) [Mass/Vol] 33.8 g/dL Normal 32-36 [facility] Comment on above: Performed By: #### L 500.2500, L100.0100 ####[facility] [address] [place], [address] MCV (RBC) [Entitic vol] 96.7 fL High 80-94 [facility] Comment on above: Performed By: #### L 500.2500, L100.0100 ####[facility] [address] [place], [address] Monocytes/100 WBC (Bld) 8.9 % Normal 0-10 [facility] Comment on above: Performed By: #### L 500.2500, L100.0100 ####[facility] [address] [place], [address] Neutrophils/100 WBC (Bld) 63.8 % Normal 47-70 [facility] Comment on above: Performed By: #### L 500.2500, L100.0100 ####[facility] [address] [place], [address] Nucleated RBC (Bld) [#/Vol] 0.4 10*3/uL Normal 0-5 [facility] Comment on above: Performed By: #### L 500.2500, L100.0100 ####[facility] [address] [place], [address] Platelet mean volume (Bld) [Entitic vol] 10.2 fL Normal 6.2-12.0 [facility] Comment on above: Performed By: #### L 500.2500, L100.0100 ####[facility] [address] [place], [address] Platelets (Bld) [#/Vol] 156 10*3/uL Normal 150-450 [facility] Comment on above: Performed By: #### L 500.2500, L100.0100 ####[facility] [address] [place], [address] RBC (Bld) [#/Vol] 3.64 10*6/uL Low 4.6-6.2 [facility] Comment on above: Performed By: #### L 500.2500, L100.0100 ####[facility] [address] [place], [address] RDW SD 64.2 fl High 35.1-43.9 [facility] Comment on above: Performed By: #### L 500.2500, L100.0100 ####[facility] [address] [place], [address] WBC (Bld) [#/Vol] 5.2 10*3/uL Normal 4.4-11.0 [facility] Comment on above: Performed By: #### L 500.2500, L100.0100 ####[facility] [address] [place], [address] Carbon dioxide, total [Moles /volume] in Central venous bloodOrdered By: Marquise Padilla on 10-21-2024 CO2 [Moles/Vol] 18.2 mmol/L Low 21.0-32.0 [facility] Chloride assayOrdered By: Geovanna Padilla on 10-21-2024 Chloride [Moles/Vol] 108 mmol/L 98-108 [facility] Discharge Instructionon 10-06 Discharge Instruction [facility] Medical Records Department [address] [place] [address] Instructions for Home/Discharge Instructions 10/21/24 0734 MR#: [id number] Acct: [id number] Name: YEFRI YANEZ Rep #: [id number] : 1965 59 From: Marquise Padilla MD [...] MD; Dr. Rahul Chavez DO Signed Normal [facility] Eosinophil percentageOrdered By: Marquise Padilla on 10-21-2024 Eosinophils/100 WBC (Bld) 4.0 % 0-5 [facility] Erythrocyte distribution wid th ratioOrdered By: aMrquise Padilla on 10-21-2024 Erythrocyte distribution width (RBC) [Ratio] 18.3 % High 11.6-14.6 [facility] Erythrocyte distribution wid th standard deviationOrdered By: Marquise Padilla on 10-21-2024 Erythrocyte distribution width (RBC) [Ratio] 64.2 fl High 35.1-43.9 [facility] Glomerular filtration rate ( GFR) estimation/1.73 sq m using serum, plasma, or whole bOrdered By: Marquise Padilla on 10-21-2024 GFR/1.73 sq M.predicted among non-blacks MDRD (S/P/Bld) [Vol rate/Area] 41 mL/min/{1.73_m2} Low >60 [facility] Comment on above: mL/min/1.73m2 CKD-EP I Creatinine Equation (2020) Glucose measurement at bedsi deOrdered By: Marquise Padilla on 10-21-2024 Glucose [Mass/Vol] 96 mg/dL 74-106 [facility] Comment on above: MANAGEMENT OF PATIEN T CARE PER NURSING PROTOCOL Hematocrit Auto (Bld) [Volum e fraction]Ordered By: Marquise Padilla on 10-21-2024 Hematocrit (Bld) [Volume fraction] 35.2 % Low 40-54 [facility] Hemoglobin measurementOrdere d By: Marquise Padilla on 10-21-2024 Hemoglobin (Bld) [Mass/Vol] 11.9 g/dL Low 13.0-16.5 [facility] Immature granulocytes/100 WB C Auto (Bld)Ordered By: Marquise Padilla on 10-21-2024 Immature granulocytes/100 WBC (Bld) 0.400 % 0.0-0.9 [facility] Comment on above: IG% - Immature Granu locytes (promyelocytes, myelocytes and metamyelocytes) > 1% indicates that a LEFT SHIFT is Present. MCV (mean corpuscular volume ) determinationOrdered By: Marquise Padilla on 10-21-2024 MCV (RBC) [Entitic vol] 96.7 fL High 80-94 [facility] Mean corpuscular hemoglobin (MCH) determinationOrdered By: Marquise Padilla on 10-21-2024 MCH (RBC) [Entitic mass] 32.7 pg High 27.0-32.0 [facility] Mean corpuscular hemoglobin concentration (MCHC) determinationOrdered By: Marquise Padilla on 10-21-2024 MCHC (RBC) [Mass/Vol] 33.8 g/dL 32-36 [facility] Mean platelet volume determi nationOrdered By: Marquise Padilla on 10-21-2024 Platelet mean volume (Bld) [Entitic vol] 10.2 fL 6.2-12.0 [facility] Monocyte percentageOrdered B y: Marquise Padilla on 10-21-2024 Monocytes/100 WBC (Bld) 8.9 % 0-10 [facility] Neutrophil percentageOrdered By: Marquise Padilla on 10-21-2024 Neutrophils/100 WBC (Bld) 63.8 % 47-70 [facility] Nucleated red blood cell per centageOrdered By: Marquise Padilla on 10-21-2024 Nucleated RBC/100 WBC (Bld) [Ratio] 0.4 % 0-5 [facility] Platelet countOrdered By: Geovanna Padilla on 10-21-2024 Platelets (Bld) [#/Vol] 156 10*3/uL 150-450 [facility] Potassium measurement (mass/ volume)Ordered By: Marquise Padilla on 10-21-2024 Potassium (Unsp spec) [Mass/Vol] 4.4 mmol/L 3.3-5.1 [facility] Comment on above: Hemolysis present, R esults could be affected. RBC Auto (Bld) [#/Vol]Ordere d By: Marquise Padilla on 10-21-2024 RBC (Bld) [#/Vol] 3.64 10*6/uL Low 4.6-6.2 [facility] Serum creatinine measurement (mass/volume)Ordered By: Marquise Padilla on 10-21-2024 Creatinine [Mass/Vol] 1.87 mg/dL High 0.70-1.20 [facility] Serum glucose measurement (m ass/volume)Ordered By: Marquise Padilla on 10-21-2024 Glucose [Mass/Vol] 106 mg/dL High 70-99 [facility] Serum or plasma calcium cory urement (mass/volume)Ordered By: Marquise Padilla on 10-21-2024 Calcium [Mass/Vol] 8.4 mg/dL 7.6-11.0 [facility] Serum or plasma urea nitroge n measurement (mass/volume)Ordered By: Marquise Padilla on 10-21-2024 Urea nitrogen [Mass/Vol] 19 mg/dL 4-19 [facility] Sodium levelOrdered By: Omero Padilla on 10-21-2024 Sodium [Moles/Vol] 136 mmol/L 133-145 [facility] White blood cell (WBC) count Ordered By: Marquise Padilla on 10-21-2024 WBC (Bld) [#/Vol] 5.2 10*3/uL 4.4-11.0 [facility] Basic Metabolic Profile (BMP )on 10-20-2024 BUN/CRE 11.3 RATIO Normal 10-20 [facility] Comment on above: Performed By: #### L 400.0001 #### [facility] [address] [place], [address] Calcium [Mass/Vol] 8.3 mg/dL Normal 7.6-11.0 [facility] Comment on above: Performed By: #### L 400.0001 #### [facility] [address] [place], [address] Chloride [Moles/Vol] 108 mmol/L Normal 98-108 [facility] Comment on above: Performed By: #### L 400.0001 #### [facility] [address] [place], [address] CO2 [Moles/Vol] 21.0 mmol/L Normal 21.0-32.0 [facility] Comment on above: Performed By: #### L 400.0001 #### [facility] [address] [place], [address] Creatinine [Mass/Vol] 2.12 mg/dL High 0.70-1.20 [facility] Comment on above: Performed By: #### L 400.0001 #### [facility] [address] [place], [address] ECRCL 47.73 ml/min Low 50-250 [facility] Comment on above: Performed By: #### L 400.0001 #### [facility] [address] [place], [address] GAP 8 Normal 5-15 [facility] Comment on above: Performed By: #### L 400.0001 #### [facility] [address] [place], [address] GFR/1.73 sq M.predicted among non-blacks MDRD (S/P/Bld) [Vol rate/Area] 35 mL/min/{1.73_m2} Low >60 [facility] Comment on above: Result Comment: mL/m in/1.73m2 CKD-EPI Creatinine Equation (2020) Performed By: #### L 400.0001 #### [facility] [address] [place], [address] Glucose [Mass/Vol] 76 mg/dL Normal 70-99 [facility] Comment on above: Performed By: #### L 400.0001 #### [facility] [address] [place], [address] Potassium [Moles/Vol] 4.5 mmol/L Normal 3.3-5.1 [facility] Comment on above: Result Comment: Hemo lysis present, Results??could be affected. ?? Performed By: #### L 400.0001 #### [facility] [address] [place], [address] Sodium [Moles/Vol] 137 mmol/L Normal 133-145 [facility] Comment on above: Performed By: #### L 400.0001 #### [facility] [address] [place], [address] Urea nitrogen [Mass/Vol] 24 mg/dL High 4-19 [facility] Comment on above: Performed By: #### L 400.0001 #### [facility] [address] [place], [address] Bedside Glucoseon 10-20-2024 FINGERSTICK GLU 81 mg/dL Normal 74-106 [facility] Comment on above: Result Comment: ANN GEMENT OF PATIENT CARE PER NURSING PROTOCOL Performed By: #### L 100.0100, L504.2610, L500.4050 #### [facility] [address] [place], [address] FINGERSTICK GLU 101 mg/dL Normal 74-106 [facility] Comment on above: Result Comment: ANN GEMENT OF PATIENT CARE PER NURSING PROTOCOL Performed By: #### L 100.0100, L504.2610, L500.4050 #### [facility] [address] [place], [address] FINGERSTICK GLU 81 mg/dL Normal 74-106 [facility] Comment on above: Result Comment: ANN GEMENT OF PATIENT CARE PER NURSING PROTOCOL Performed By: #### L 400.0001 #### [facility] [address] [place], [address] FINGERSTICK GLU 95 mg/dL Normal 74-106 [facility] Comment on above: Result Comment: ANN GEMENT OF PATIENT CARE PER NURSING PROTOCOL Performed By: #### L 100.0100, L504.2610, L500.4050 #### [facility] [address] [place], [address] CBC W/Diff, Automatedon 08- 5-2024 Absolute Lymph 0.96 X10 3/uL Normal 0.83-4.51 [facility] Comment on above: Performed By: #### L 400.0001 #### [facility] [address] [place], [address] Absolute Neut 2.8 X10 3/uL Normal 2.0-7.7 [facility] Comment on above: Performed By: #### L 400.0001 #### [facility] [address] [place], [address] Basophils/100 WBC (Bld) 0.2 % Normal 0-1 [facility] Comment on above: Performed By: #### L 400.0001 #### [facility] [address] [place], [address] Eosinophils/100 WBC (Bld) 3.6 % Normal 0-5 [facility] Comment on above: Performed By: #### L 400.0001 #### [facility] [address] [place], [address] Erythrocyte distribution width (RBC) [Ratio] 18.2 % High 11.6-14.6 [facility] Comment on above: Performed By: #### L 400.0001 #### [facility] [address] [place], [address] Hematocrit (Bld) [Volume fraction] 36.6 % Low 40-54 [facility] Comment on above: Performed By: #### L 400.0001 #### [facility] [address] [place], [address] Hemoglobin (Bld) [Mass/Vol] 12.9 g/dL Low 13.0-16.5 [facility] Comment on above: Performed By: #### L 400.0001 #### [facility] [address] [place], [address] IG% 0.200 Normal 0.0-0.9 [facility] Comment on above: Result Comment: IG% - Immature Granulocytes (promyelocytes, myelocytes and metamyelocytes) > 1% indicates that a LEFT SHIFT is Present. Performed By: #### L 400.0001 #### [facility] [address] [place], [address] Lymphocytes/100 WBC (Bld) 21.9 % Normal 19-41 [facility] Comment on above: Performed By: #### L 400.0001 #### [facility] [address] [place], [address] MCH (RBC) [Entitic mass] 34.1 pg High 27.0-32.0 [facility] Comment on above: Performed By: #### L 400.0001 #### [facility] [address] [place], [address] MCHC (RBC) [Mass/Vol] 35.2 g/dL Normal 32-36 [facility] Comment on above: Performed By: #### L 400.0001 #### [facility] [address] [place], [address] MCV (RBC) [Entitic vol] 96.8 fL High 80-94 [facility] Comment on above: Performed By: #### L 400.0001 #### [facility] [address] [place], [address] Monocytes/100 WBC (Bld) 10.7 % High 0-10 [facility] Comment on above: Performed By: #### L 400.0001 #### [facility] [address] [place], [address] Neutrophils/100 WBC (Bld) 63.4 % Normal 47-70 [facility] Comment on above: Performed By: #### L 400.0001 #### [facility] [address] [place], [address] Nucleated RBC (Bld) [#/Vol] 0 10*3/uL Normal 0-5 [facility] Comment on above: Performed By: #### L 400.0001 #### [facility] [address] [place], [address] Platelet mean volume (Bld) [Entitic vol] 11.0 fL Normal 6.2-12.0 [facility] Comment on above: Performed By: #### L 400.0001 #### [facility] [address] [place], [address] Platelets (Bld) [#/Vol] 165 10*3/uL Normal 150-450 [facility] Comment on above: Performed By: #### L 400.0001 #### [facility] [address] [place], [address] RBC (Bld) [#/Vol] 3.78 10*6/uL Low 4.6-6.2 [facility] Comment on above: Performed By: #### L 400.0001 #### [facility] [address] [place], [address] RDW SD 64.3 fl High 35.1-43.9 [facility] Comment on above: Performed By: #### L 400.0001 #### [facility] [address] [place], [address] WBC (Bld) [#/Vol] 4.4 10*3/uL Normal 4.4-11.0 [facility] Comment on above: Performed By: #### L 400.0001 #### [facility] [address] [place], [address] Magnesiumon 10-20-2024 Magnesium [Mass/Vol] 2.0 mg/dL Normal 1.5-2.2 [facility] Comment on above: Performed By: #### L 100.0100, L504.2610, L500.4050 #### [facility] [address] [place], [address] Magnesium measurement (mass/ volume)Ordered By: Rahul Verduzco on 10-20-2024 Magnesium (Unsp spec) [Mass/Vol] 2.0 mg/dL 1.5-2.2 [facility] Bedside Glucoseon 10-19-2024 FINGERSTICK GLU 86 mg/dL Normal 74-106 [facility] Comment on above: Result Comment: ANN GEMENT OF PATIENT CARE PER NURSING PROTOCOL Performed By: #### L 100.0100, L504.2610, L500.4050 #### [facility] [address] [place], [address] FINGERSTICK GLU 78 mg/dL Normal 74-106 [facility] Comment on above: Result Comment: ANN GEMENT OF PATIENT CARE PER NURSING PROTOCOL Performed By: #### L 100.0100, L504.2610, L500.4050 #### [facility] [address] [place], [address] FINGERSTICK GLU 100 mg/dL Normal 74-106 [facility] Comment on above: Result Comment: ANN GEMENT OF PATIENT CARE PER NURSING PROTOCOL Performed By: #### L 100.0100, L504.2610, L500.4050 #### [facility] [address] [place], [address] FINGERSTICK GLU 79 mg/dL Normal 74-106 [facility] Comment on above: Result Comment: ANN MONTERO OF PATIENT CARE PER NURSING PROTOCOL Performed By: #### L 501.080 #### [facility] [address] [place], [address] Bilirubin Test strip Ql (U)O rdered By: Rahul Verduzco on 10-19-2024 Bilirubin Ql (U) Negative Negative [facility] Bilirubin, totalOrdered By: Rahul Verduzco on 10-19-2024 Bilirubin [Mass/Vol] 0.58 mg/dL 0.00-1.30 [facility] Blood manual differential co mment interpretation (narrative result)Ordered By: Rahul Verduzco on 10-19-2024 Manual differential comment Piyush (Bld) [Interp] See comment [facility] Comment on above: ANISOCYTOSIS 1+ CBC W/Diff, Automatedon 10-06 Absolute Lymph 0.73 X10 3/uL Low 0.83-4.51 [facility] Comment on above: Performed By: #### L 100.0100, L504.2610, L500.4050 #### [facility] [address] [place], [address] Absolute Neut 3.1 X10 3/uL Normal 2.0-7.7 [facility] Comment on above: Performed By: #### L 100.0100, L504.2610, L500.4050 #### [facility] [address] [place], [address] Basophils/100 WBC (Bld) 0.5 % Normal 0-1 [facility] Comment on above: Performed By: #### L 100.0100, L504.2610, L500.4050 #### [facility] [address] [place], [address] Eosinophils/100 WBC (Bld) 2.3 % Normal 0-5 [facility] Comment on above: Performed By: #### L 100.0100, L504.2610, L500.4050 #### [facility] [address] [place], [address] Erythrocyte distribution width (RBC) [Ratio] 18.3 % High 11.6-14.6 [facility] Comment on above: Performed By: #### L 100.0100, L504.2610, L500.4050 #### [facility] [address] [place], [address] Hematocrit (Bld) [Volume fraction] 43.5 % Normal 40-54 [facility] Comment on above: Performed By: #### L 100.0100, L504.2610, L500.4050 #### [facility] [address] [place], [address] Hemoglobin (Bld) [Mass/Vol] 14.7 g/dL Normal 13.0-16.5 [facility] Comment on above: Performed By: #### L 100.0100, L504.2610, L500.4050 #### [facility] [address] [place], [address] IG% 0.200 Normal 0.0-0.9 [facility] Comment on above: Result Comment: IG% - Immature Granulocytes (promyelocytes, myelocytes and metamyelocytes) > 1% indicates that a LEFT SHIFT is Present. Performed By: #### L 100.0100, L504.2610, L500.4050 #### [facility] [address] [place], [address] Lymphocytes/100 WBC (Bld) 16.8 % Low 19-41 [facility] Comment on above: Performed By: #### L 100.0100, L504.2610, L500.4050 #### [facility] [address] [place], [address] MCH (RBC) [Entitic mass] 33.0 pg High 27.0-32.0 [facility] Comment on above: Performed By: #### L 100.0100, L504.2610, L500.4050 #### [facility] [address] [place], [address] MCHC (RBC) [Mass/Vol] 33.8 g/dL Normal 32-36 [facility] Comment on above: Performed By: #### L 100.0100, L504.2610, L500.4050 #### [facility] [address] [place], [address] MCV (RBC) [Entitic vol] 97.5 fL High 80-94 [facility] Comment on above: Performed By: #### L 100.0100, L504.2610, L500.4050 #### [facility] [address] [place], [address] Monocytes/100 WBC (Bld) 8.5 % Normal 0-10 [facility] Comment on above: Performed By: #### L 100.0100, L504.2610, L500.4050 #### [facility] [address] [place], [address] Neutrophils/100 WBC (Bld) 71.7 % High 47-70 [facility] Comment on above: Performed By: #### L 100.0100, L504.2610, L500.4050 #### [facility] [address] [place], [address] Nucleated RBC (Bld) [#/Vol] 0 10*3/uL Normal 0-5 [facility] Comment on above: Performed By: #### L 100.0100, L504.2610, L500.4050 #### [facility] [address] [place], [address] Platelet mean volume (Bld) [Entitic vol] 10.7 fL Normal 6.2-12.0 [facility] Comment on above: Performed By: #### L 100.0100, L504.2610, L500.4050 #### [facility] [address] [place], [address] Platelets (Bld) [#/Vol] 183 10*3/uL Normal 150-450 [facility] Comment on above: Performed By: #### L 100.0100, L504.2610, L500.4050 #### [facility] [address] [place], [address] RBC (Bld) [#/Vol] 4.46 10*6/uL Low 4.6-6.2 [facility] Comment on above: Performed By: #### L 100.0100, L504.2610, L500.4050 #### [facility] [address] [place], [address] RDW SD 65.1 fl High 35.1-43.9 [facility] Comment on above: Performed By: #### L 100.0100, L504.2610, L500.4050 #### [facility] [address] [place], [address] WBC (Bld) [#/Vol] 4.3 10*3/uL Low 4.4-11.0 [facility] Comment on above: Performed By: #### L 100.0100, L504.2610, L500.4050 #### [facility] [address] [place], [address] Calculated very low density lipoprotein (VLDL) cholesterol measurementOrdered By: Rahul Verduzco on 10-19-2024 Calculated very low density lipoprotein (VLDL) cholesterol measurement 20 mg/dL 5-40 [facility] Comprehensive Metabolic Prof ilon 10-19-2024 Albumin [Mass/Vol] 3.9 g/dL Normal 3.4-4.8 [facility] Comment on above: Performed By: #### L 400.0001 #### [facility] [address] [place], [address] Albumin/Globulin [Mass ratio] 1.3 {ratio} Normal 0.9-2.4 [facility] Comment on above: Performed By: #### L 400.0001 #### [facility] [address] [place], [address] ALK PHOS 51 U/L Normal 40-129 [facility] Comment on above: Performed By: #### L 400.0001 #### [facility] [address] [place], [address] ALT [Catalytic activity/Vol] 45 U/L Normal <=46 [facility] Comment on above: Performed By: #### L 400.0001 #### [facility] [address] [place], [address] AST [Catalytic activity/Vol] 47 U/L High <=37 [facility] Comment on above: Performed By: #### L 400.0001 #### [facility] [address] [place], [address] Bilirubin [Mass/Vol] 0.58 mg/dL Normal 0.00-1.30 [facility] Comment on above: Performed By: #### L 400.0001 #### [facility] [address] [place], [address] BUN/CRE 12.7 RATIO Normal 10-20 [facility] Comment on above: Performed By: #### L 400.0001 #### [facility] [address] [place], [address] Calcium [Mass/Vol] 8.8 mg/dL Normal 7.6-11.0 [facility] Comment on above: Performed By: #### L 400.0001 #### [facility] [address] [place], [address] Chloride [Moles/Vol] 105 mmol/L Normal 98-108 [facility] Comment on above: Performed By: #### L 400.0001 #### [facility] [address] [place], [address] CO2 [Moles/Vol] 21.3 mmol/L Normal 21.0-32.0 [facility] Comment on above: Performed By: #### L 400.0001 #### [facility] [address] [place], [address] Creatinine [Mass/Vol] 2.53 mg/dL High 0.70-1.20 [facility] Comment on above: Performed By: #### L 400.0001 #### [facility] [address] [place], [address] ECRCL 40.15 ml/min Low 50-250 [facility] Comment on above: Performed By: #### L 400.0001 #### [facility] [address] [place], [address] GAP 12 Normal 5-15 [facility] Comment on above: Performed By: #### L 400.0001 #### [facility] [address] [place], [address] GFR/1.73 sq M.predicted among non-blacks MDRD (S/P/Bld) [Vol rate/Area] 28 mL/min/{1.73_m2} Low >60 [facility] Comment on above: Result Comment: mL/m in/1.73m2 CKD-EPI Creatinine Equation (2020) Performed By: #### L 400.0001 #### [facility] [address] [place], [address] Globulin (S) [Mass/Vol] 3.0 g/dL Normal 2.2-4.2 [facility] Comment on above: Performed By: #### L 400.0001 #### [facility] [address] [place], [address] Glucose [Mass/Vol] 82 mg/dL Normal 70-99 [facility] Comment on above: Performed By: #### L 400.0001 #### [facility] [address] [place], [address] Potassium [Moles/Vol] 4.7 mmol/L Normal 3.3-5.1 [facility] Comment on above: Performed By: #### L 400.0001 #### [facility] [address] [place], [address] Sodium [Moles/Vol] 138 mmol/L Normal 133-145 [facility] Comment on above: Performed By: #### L 400.0001 #### [facility] [address] [place], [address] T PROT 6.9 g/dL Normal 5.9-8.4 [facility] Comment on above: Performed By: #### L 400.0001 #### [facility] [address] [place], [address] Urea nitrogen [Mass/Vol] 32 mg/dL High 4-19 [facility] Comment on above: Performed By: #### L 400.0001 #### [facility] [address] [place], [address] ENTERIC PATHOGEN PANEL STOOL on 10-19-2024 EP [...] VIBRIO Not Detected Yersinia Not Detected Normal [facility] Comment on above: Performed By: #### M 100.637 ####[facility] [address] [place], [address] H AND P Exam - Hospitaliston 10-19-2024 H&P Exam - Hospitalist [facility] Medical Records Department [address] [place] [address] H P Exam - Hospitalist 10/19/24 0418 MR#: [id number] Acct: [id number] Name: YEFRI YANEZ Rep #: [id number] : 1965 59 From: Rahul Chavez DO PCP: Dr. Daksha Turner MD Status:ADM IN Location: [facility] [id number] HPI - General General Date of Admission: [...] global hypokinesis of the left ventricle and [id number] (1-2+) eccentric mitral valve insufficiency, mild (1+) [...] (for months) and OA who presents to [facility] ER complaining of abdominal pain and diarrhea. [...] is expected to extend beyond 2 midnights. [facility] Medical History Atrial fibrillation Abnormal chest x-ray [...] tablet (Far (more content not included)... Normal [facility] Hemoglobin A1con 10-19-2024 HbA1c (Bld) [Mass fraction] 7.0 % High <=5.6 [facility] Comment on above: Result Comment: Norm al < 5.7 % Prediabetic 5.7 - 6.4 % Diabetic >or= 6.5 % Please note range changes. Performed By: #### L 100.0100, L504.2610, L500.4050 #### [facility] [address] [place], [address] Hemoglobin A1c percentageOrd ered By: Rahul Verduzco on 10-19-2024 HbA1c (Bld) [Mass fraction] 7.0 % High <5.7 [facility] Comment on above: Normal < 5.7 % Predi abetic 5.7 - 6.4 % Diabetic >or= 6.5 % Please note range changes. Ketones Test strip Ql (U)Ord ered By: Rahul Verduzco on 10-19-2024 Ketones Ql (U) Negative Negative [facility] LDL calc ser/plasOrdered By: Rahul Verduzco on 10-19-2024 Cholesterol in LDL [Mass/Vol] 45 mg/dL [facility] Comment on above: [id number]=[id number] m g/dL & Higher Zvzt=553 mg/dL or greaterFriedwald Equation for LDL-C Laboratory - Chemistry and C hemistry - challengeOrdered By: Rahul Verduzco on 10-19-2024 AST [Catalytic activity/Vol] 47 U/L High <38 [facility] - Hematology and Cell countsOrdered By: Rahul Verduzco on 10-19-2024 Anisocytosis Ql (Bld) 1+ [facility] Lactic Acidon 10-19-2024 Lactate [Moles/Vol] 1.0 mmol/L Normal 0.0-2.0 [facility] Comment on above: Order Comment: CLEAN CATCH Performed By: #### L 400.0001 #### [facility] [address] [place], [address] Lipid Profileon 10-19-2024 CHOL:HDL 2.58 Normal [facility] Comment on above: Performed By: #### L 400.0001 #### [facility] [address] [place], [address] Cholesterol [Mass/Vol] 107 mg/dL Normal <=200 [facility] Comment on above: Result Comment: Chol esterol level, Desirable <200 mg/dL Borderline high cholesterol 200-239 mg/dL High cholesterol >=240 mg/dL Recommendations of the NCEP Adult Treatment Panel for the following risk-cutoff thresholds for the [place] population. Performed By: #### L 400.0001 #### [facility] [address] [place], [address] Cholesterol in HDL [Mass/Vol] 42 mg/dL Normal [facility] Comment on above: Result Comment: Beckie onal Cholesterol Education Program (NCEP) guidelines: <40 mg/dL: Low HDL-cholesterol (major risk factor for CHD) >= 60 mg/dL: High HDL-cholesterol (negative risk factor for CHD) HDL-cholesterol is affected by a number of factors, e.g. smoking, exercise, hormones, sex and age. Performed By: #### L 400.0001 #### [facility] [address] [place], [address] Cholesterol in LDL [Mass/Vol] 45 mg/dL Normal [facility] Comment on above: Result Comment: Bord ylftlg=494-246 mg/dL Higher Kpjx=279 mg/dL or greater Friedwald Equation for LDL-C Performed By: #### L 400.0001 #### [facility] [address] [place], [address] Cholesterol in VLDL [Mass/Vol] 20 mg/dL Normal 5-40 [facility] Comment on above: Performed By: #### L 400.0001 #### [facility] [address] [place], [address] Triglyceride [Mass/Vol] 101 mg/dL Normal [facility] Comment on above: Result Comment: The drugs N-Acetylcysteine and Metamizole may falsely depress this assay. Normal range: <150 mg/dL Borderline High: 150-199 mg/dL High: 200-499 mg/dL Very High: >500 mg/dL Performed By: #### L 400.0001 #### [facility] [address] [place], [address] M100.678on 10-19-2024 M100.678 SARS-CoV-2 (COVID 19 ) Negative INFLUENZA A Negative INFLUENZA B Negative RSV PCR Negative Normal [facility] Comment on above: Performed By: #### M 100.678 ####[facility] [address] [place], [address] Magnesiumon 10-19-2024 Magnesium [Mass/Vol] 2.1 mg/dL Normal 1.5-2.2 [facility] Comment on above: Performed By: #### L 400.0001 #### [facility] [address] [facility] [place], [place], [address] Microscopic analysis of urin e for red blood cells (RBC)Ordered By: Rahul Verduzco on 10-19-2024 Microscopic analysis of urine for red blood cells (RBC) 0 SEEN /hpf 0-5 [facility] Mucus LM Ql (Urine sed)Order ed By: Rahul Verduzco on 10-19-2024 Mucus Ql (Urine sed) 0 SEEN /hpf [facility] Nitrite Test strip Ql (U)Ord ered By: Rahul Verduzco on 10-19-2024 Nitrite Ql (U) Negative Negative [facility] Ovalocyte detectionOrdered B y: Rahul Verduzco on 10-19-2024 Ovalocytes LM Ql (Bld) 1+ [facility] Phosphoruson 10-19-2024 Phosphate [Mass/Vol] 3.4 mg/dL Normal 2.7-4.5 [facility] Comment on above: Performed By: #### L 100.0100, L504.2610, L500.4050 #### [facility] [address] [facility] [place], [place], [address] Platelet morphologyOrdered B y: Rahul Verduzco on 10-19-2024 Platelet morphology finding Nom (Bld) LARGE [facility] Protein Test strip Ql (U)Ord ered By: Rahul Verduzco on 10-19-2024 Protein Ql (U) 100 mg/dl High Negative [facility] Screening total cholesterol/ high density lipoprotein (HDL) cholesterol ratioOrdered By: Rahul Verduzco on 10-19-2024 Cholesterol.total/Urvashi sterol in HDL [Mass ratio] 2.58 {ratio} [facility] Serum globulin measurementOr dered By: Rahul Verduzco on 10-19-2024 Globulin (S) [Mass/Vol] 3.0 g/dL 2.2-4.2 [facility] Serum or plasma alanine stafford otransferase (ALT) measurementOrdered By: Rahul Verduzco on 10-19-2024 ALT [Catalytic activity/Vol] 45 U/L <47 [facility] Serum or plasma albumin cory urement (mass/volume)Ordered By: Rahul Verduzco on 10-19-2024 Albumin [Mass/Vol] 3.9 g/dL 3.4-4.8 [facility] Serum or plasma albumin/glob ulin mass ratioOrdered By: Rahul Verduzco on 10-19-2024 Albumin/Globulin [Mass ratio] 1.3 {ratio} 0.9-2.4 [facility] Serum or plasma alkaline damaso sphatase measurementOrdered By: Rahul Verduzco on 10-19-2024 ALP [Catalytic activity/Vol] 51 U/L 40-129 [facility] Serum or plasma cholesterol in HDL measurement (mass/volume)Ordered By: Rahul Verduzco on 10-19-2024 Cholesterol in HDL [Mass/Vol] 42 mg/dL >40 [facility] Comment on above: National Cholesterol Education Program (NCEP) guidelines:<40 mg/dL: Low HDL-cholesterol (major risk factor for CHD)>= 60 mg/dL: High HDL-cholesterol (negative risk factor for CHD)HDL-cholesterol is affected by a number of factors, e.g. smoking, exercise, hormones, sex and age. Serum or plasma cholesterol measurement (mass/volume)Ordered By: Rahul Verduzco on 10-19-2024 Cholesterol [Mass/Vol] 107 mg/dL <201 [facility] Comment on above: Cholesterol level, D esirable <200 mg/dLBorderline high cholesterol 200-239 mg/dLHigh cholesterol >=240 mg/dLRecommendations of the NCEP Adult Treatment Panel for the following risk-cutoff thresholds for the [place] population. Squamous epithelial cells de tection in urine sediment by light microscopyOrdered By: Rahul Verduzco on 10-19-2024 Epithelial cells.squamous LM Ql (Urine sed) 0 SEEN /hpf 0-5 [facility] Stool Lactoferrin/WBCon 10-06 WBCST Fecal WBC Lactoferri n A Positive: Fecal WBC Lactoferrin present A Normal [facility] Comment on above: Performed By: #### L 100.0100, L504.2610, L500.4050 #### [facility] [address] [place], [address] Stool Occult Blood iFOBon STOB Positive Normal [facility] Comment on above: Performed By: #### M 100.7900 ####[facility] [address] [place], [address] Stool gastrointestinal hemog lobin detection by immunologic methodOrdered By: Rahul Verduzco on 10-19-2024 Lower GI hemoglobin IA Ql (Stl) Positive Abnormal [facility] Stool lactoferrin detection by immunoassayOrdered By: Rahul Verduzco on 10-19-2024 Lactoferrin IA Ql (Stl) [facility] TSH DL <= 0.005 mIU/L QnOrde red By: Rahul Verduzco on 10-19-2024 TSH Qn 2.330 uIU/mL 0.300-4.20 0 [facility] Thyroid Stim Hormone (TSH)on 10-19-2024 TSH 2.330 uIU/mL Normal 0.300-4.20 0 [facility] Comment on above: Performed By: #### L 400.0001 #### [facility] [address] [place], [place], [id number] Total proteinOrdered By: Ranjan Verduzco on 10-19-2024 Protein [Mass/Vol] 6.9 g/dL 5.9-8.4 [facility] Triglycerides measurementOrd ered By: Rahul Verduzco on 10-19-2024 Triglyceride [Mass/Vol] 101 mg/dL <199 [facility] Comment on above: The drugs N-Acetylcy steine and Metamizole may falsely depress this assay. Normal range: <150 mg/dLBorderline High: 150-199 mg/dLHigh: 200-499 mg/dLVery High: >500 mg/dL Urinalysis, Completeon 10-19 CAST,FINE GRAN 0-5 SEEN Normal 0-5 [facility] Comment on above: Order Comment: CLEAN CATCH Performed By: #### L 100.0100, L504.2610, L500.4050 #### [facility] [address] [place], [address] BACTERIA 0 SEEN Normal None Seen [facility] Comment on above: Order Comment: CLEAN CATCH Performed By: #### L 100.0100, L504.2610, L500.4050 #### [facility] [address] [place], [address] EPI,SQUAMOUS 0 SEEN Normal 0-5 [facility] Comment on above: Order Comment: CLEAN CATCH Performed By: #### L 100.0100, L504.2610, L500.4050 #### [facility] [address] [place], [address] Mucus Ql (Urine sed) 0 SEEN Normal [facility] Comment on above: Order Comment: CLEAN CATCH Performed By: #### L 100.0100, L504.2610, L500.4050 #### [facility] [address] [place], [address] RBC 0 SEEN Normal [address] [place] [address] Comment on above: Order Comment: CLEAN CATCH Performed By: #### L 100.0100, L504.2610, L500.4050 #### [facility] [address] [place], [address] WBC 0 SEEN Normal 0-[address] [place] [address] Comment on above: Order Comment: CLEAN CATCH Performed By: #### L 100.0100, L504.2610, L500.4050 #### [facility] [address] [place], [address] BACTERIA 1+ /hpf Normal None Seen [facility] Comment on above: Order Comment: CLEAN CATCH Performed By: #### L 400.0001 #### [facility] [address] [place], [address] CAST,HYALINE 10-25 SEEN Normal 0-[address] [place] [address] Comment on above: Order Comment: CLEAN CATCH Performed By: #### L 400.0001 #### [facility] [address] [place], [address] EPI,SQUAMOUS 0-5 SEEN Normal 0-[address] [place] [address] Comment on above: Order Comment: CLEAN CATCH Performed By: #### L 400.0001 #### [facility] [address] [place], [address] RBC 0-5 SEEN Normal 0-5 [facility] Comment on above: Order Comment: CLEAN CATCH Performed By: #### L 400.0001 #### [facility] [address] [place], [address] WBC 0-5 SEEN Normal 0-5 [facility] Comment on above: Order Comment: CLEAN CATCH Performed By: #### L 400.0001 #### [facility] [address] [place], [address] Mucus Ql (Urine sed) 0 SEEN Normal [facility] Comment on above: Order Comment: CLEAN CATCH Performed By: #### L 400.0001 #### [facility] [address] [place], [address] Urine clarityOrdered By: Ranjan Verduzco on 10-19-2024 Clarity (U) Clear Clear [facility] Urine color determinationOrd ered By: Rahul Verduzco on 10-19-2024 Color (U) Yellow Yellow [facility] Urine glucose detectionOrder ed By: Rahul Verduzco on 10-19-2024 Glucose Ql (U) 100 mg/dl High Normal [facility] Urine leukocyte esterase det ection by dipstickOrdered By: Rahul Verduzco on 10-19-2024 Leukocyte esterase Test strip Ql (U) Negative Negative [facility] Urine pHOrdered By: Rahul wu on 10-19-2024 pH (U) 6.0 [pH] 5.0 - 8.0 [facility] Urine sediment bacteria coun t by microscopy (number/high power field)Ordered By: Rahul Verduzco on 10-19-2024 Bacteria LM.HPF (Urine sed) [#/Area] 0 /[HPF] None Seen [facility] Urine sediment fine granular cast count by microscopy (number/low power field)Ordered By: Rahul Verduzco on 10-19-2024 Fine Granular Casts LM.LPF (Urine sed) [#/Area] 0-5 SEEN /lpf 0-5 [facility] Urine specific gravity measu rementOrdered By: Rahul Verduzco on 10-19-2024 Specific gravity (U) [Rel density] 1.025 1.002-1.03 0 [facility] Urine urobilinogen measureme ntOrdered By: Rahul Verduzco on 10-19-2024 Urobilinogen Ql (U) Normal mg/dl Normal [facility] White blood cell countOrdere d By: Rahul Verduzco on 10-19-2024 White blood cell count 0 SEEN /hpf 0-5 [facility] Abdomen/Pelvis without Conto n 10-18-2024 Abdomen/Pelvis without Cont [facility] Imaging [facility] [address] [place], [place] [address] Abdomen/Pelvis without Cont MR#: [id number] Acct: [id number] Name: YEFRI YANEZ Rep #: [id number] : 1965 M 59 From: Estevan Quinn MD PCP: Dr. Daksha Turner MD Status: REG ER Study: Abdomen/Pelvis without Cont Date of Exam: 10/06 05/30 Exam# [id number] Ordering Dr: Veronica Jackson MD PROCEDURE: ABDOMEN/PELVIS [...] with multifocal bone metastatic disease. Reading Location: [place] [address] CC: Dr. Daksha Turner MD; Dr. Veronica Jackson MD Horticulture Superintendent: Signed Normal [facility] Absolute lymphocyte countOrd ered By: Veronica Jackson on 10-18-2024 Lymphocytes Auto (Unsp spec) [#/Vol] 1.17 10*3/uL 0.83-4.51 [facility] Absolute neutrophil countOrd ered By: Veronica Jackson on 10-18-2024 Neutrophils (Bld) [#/Vol] 3.4 10*3/uL 2.0-7.7 [facility] Anion gap in Serum or Plasma Ordered By: Veronica Jackson on 10-18-2024 Anion gap [Moles/Vol] 16 mmol/L High 5-15 [facility] Automated lymphocyte count a s percentage of total leukocytesOrdered By: Veronica Jackson on 10-18-2024 Lymphocytes/100 WBC Auto (Unsp spec) 22.9 % 19-41 [facility] BUN/creatinine ratioOrdered By: Veronica Jackson on 10-18-2024 Urea nitrogen/Creatinine [Mass ratio] 11.3 mg/mg 10-20 [facility] Basophil percentageOrdered B y: Veronica Jackson on 10-18-2024 Basophils/100 WBC (Bld) 0.2 % 0-1 [facility] Bilirubin Test strip Ql (U)O rdered By: Veronica Jackson on 10-18-2024 Bilirubin Ql (U) 1 mg/dL High Negative [facility] Comment on above: COLOR OF URINE MAY A FFECT DIPSTICK RESULTS. Bilirubin, totalOrdered By: Veronica Jackson on 10-18-2024 Bilirubin [Mass/Vol] 0.54 mg/dL 0.00-1.30 [facility] CBC W/Diff, Automatedon 10-06 Absolute Lymph 1.17 X10 3/uL Normal 0.83-4.51 [facility] Comment on above: Performed By: #### L 100.0100, L504.2610, L500.4050 #### [facility] [address] [place], [address] Absolute Neut 3.4 X10 3/uL Normal 2.0-7.7 [facility] Comment on above: Performed By: #### L 100.0100, L504.2610, L500.4050 #### [facility] [address] [place], [address] Basophils/100 WBC (Bld) 0.2 % Normal 0-1 [facility] Comment on above: Performed By: #### L 100.0100, L504.2610, L500.4050 #### [facility] [address] [place], [address] Eosinophils/100 WBC (Bld) 2.5 % Normal 0-5 [facility] Comment on above: Performed By: #### L 100.0100, L504.2610, L500.4050 #### [facility] [address] [place], [address] Erythrocyte distribution width (RBC) [Ratio] 18.1 % High 11.6-14.6 [facility] Comment on above: Performed By: #### L 100.0100, L504.2610, L500.4050 #### [facility] [address] [place], [address] Hematocrit (Bld) [Volume fraction] 42.5 % Normal 40-54 [facility] Comment on above: Performed By: #### L 100.0100, L504.2610, L500.4050 #### [facility] [address] [place], [address] Hemoglobin (Bld) [Mass/Vol] 14.6 g/dL Normal 13.0-16.5 [facility] Comment on above: Performed By: #### L 100.0100, L504.2610, L500.4050 #### [facility] [address] [place], [address] IG% 0.400 Normal 0.0-0.9 [facility] Comment on above: Result Comment: IG% - Immature Granulocytes (promyelocytes, myelocytes and metamyelocytes) > 1% indicates that a LEFT SHIFT is Present. Performed By: #### L 100.0100, L504.2610, L500.4050 #### [facility] [address] [place], [address] Lymphocytes/100 WBC (Bld) 22.9 % Normal 19-41 [facility] Comment on above: Performed By: #### L 100.0100, L504.2610, L500.4050 #### [facility] [address] [place], [address] MCH (RBC) [Entitic mass] 32.6 pg High 27.0-32.0 [facility] Comment on above: Performed By: #### L 100.0100, L504.2610, L500.4050 #### [facility] [address] [place], [address] MCHC (RBC) [Mass/Vol] 34.4 g/dL Normal 32-36 [facility] Comment on above: Performed By: #### L 100.0100, L504.2610, L500.4050 #### [facility] [address] [place], [address] MCV (RBC) [Entitic vol] 94.9 fL High 80-94 [facility] Comment on above: Performed By: #### L 100.0100, L504.2610, L500.4050 #### [facility] [address] [place], [address] Monocytes/100 WBC (Bld) 7.8 % Normal 0-10 [facility] Comment on above: Performed By: #### L 100.0100, L504.2610, L500.4050 #### [facility] [address] [place], [address] Neutrophils/100 WBC (Bld) 66.2 % Normal 47-70 [facility] Comment on above: Performed By: #### L 100.0100, L504.2610, L500.4050 #### [facility] [address] [place], [address] Nucleated RBC (Bld) [#/Vol] 0 10*3/uL Normal 0-5 [facility] Comment on above: Performed By: #### L 100.0100, L504.2610, L500.4050 #### [facility] [address] [place], [address] Platelet mean volume (Bld) [Entitic vol] 10.4 fL Normal 6.2-12.0 [facility] Comment on above: Performed By: #### L 100.0100, L504.2610, L500.4050 #### [facility] [address] [place], [address] Platelets (Bld) [#/Vol] 201 10*3/uL Normal 150-450 [facility] Comment on above: Performed By: #### L 100.0100, L504.2610, L500.4050 #### [facility] [address] [place], [address] RBC (Bld) [#/Vol] 4.48 10*6/uL Low 4.6-6.2 [facility] Comment on above: Performed By: #### L 100.0100, L504.2610, L500.4050 #### [facility] [address] [place], [address] RDW SD 62.2 fl High 35.1-43.9 [facility] Comment on above: Performed By: #### L 100.0100, L504.2610, L500.4050 #### [facility] [address] [place], [address] WBC (Bld) [#/Vol] 5.1 10*3/uL Normal 4.4-11.0 [facility] Comment on above: Performed By: #### L 100.0100, L504.2610, L500.4050 #### [facility] [address] [place], [address] CDIFF (PCR)on 10-18-2024 CDIFF C diff DNA Spec Ql SANDOVAL+probe C diff DNA Spec Ql SANDOVAL+probe Reference Range: Negative Cepheid GeneXpert: polymerase chain reaction (PCR) 027 027 NAP1-B1 Presumptive Negative *for epidemiolologic???use C. Diff PCR Negative- No toxigenic C. Diff Detected Normal [facility] Comment on above: Performed By: #### M 100.6796 ####[facility] [address] [place], [address] Carbon dioxide, total [Moles /volume] in Central venous bloodOrdered By: Veronica Jackson on 10-18-2024 CO2 [Moles/Vol] 18.1 mmol/L Low 21.0-32.0 [facility] Chest PA and Lateralon 10-18 Chest PA and Lateral [facility] Imaging Services [address] [place] [address] Chest PA and Lateral MR#: [id number] Acct: [id number] Name: YEFRI YANEZ Rep #: [id number] : 1965 M 59 From: Mohan Ng MD PCP: Dr. Daksha Turner MD Status: REG ER Study: Chest PA and Lateral Date of Exam: 10/18/24 Exam# [id number] Ordering Dr: Veronica Jackson MD PROCEDURE: CHEST PA AND LATERAL 10/18/2024 REASON FOR EXAM: FEELING UNWELL TECHNIQUE: CHEST PA AND LATERAL COMPARISON: 02/10/2024 CT. FINDINGS: Right lateral chest wall masslike lesion may represent a previously expansile right 6th rib lesion. No consolidation. The heart is normal in size. RAD/Chest PA and Lateral IMPRESSION: Right lateral chest wall mass. Reading Location: [facility] CC: Dr. Daksha Turner MD; Dr. Veronica Jackson MD Horticulture Superintendent: Signed Normal [facility] Chloride assayOrdered By: Eunice Jackson on 10-18-2024 Chloride [Moles/Vol] 103 mmol/L 98-108 [facility] Clostridium difficile detect ion by polymerase chain reactionOrdered By: Veronica Jackson on 10-18-2024 C. difficile DNA SANDOVAL+probe Ql (Unsp spec) [facility] Comprehensive Metabolic Prof ilon 10-18-2024 Albumin [Mass/Vol] 4.0 g/dL Normal 3.4-4.8 [facility] Comment on above: Performed By: #### L 100.0100, L504.2610, L500.4050 #### [facility] [address] [place], [address] Albumin/Globulin [Mass ratio] 1.3 {ratio} Normal 0.9-2.4 [facility] Comment on above: Performed By: #### L 100.0100, L504.2610, L500.4050 #### [facility] [address] [place], [address] ALK PHOS 58 U/L Normal 40-129 [facility] Comment on above: Performed By: #### L 100.0100, L504.2610, L500.4050 #### [facility] [address] [place], [address] ALT [Catalytic activity/Vol] 47 U/L Normal <=46 [facility] Comment on above: Performed By: #### L 100.0100, L504.2610, L500.4050 #### [facility] [address] [place], [address] AST [Catalytic activity/Vol] 46 U/L High <=37 [facility] Comment on above: Performed By: #### L 100.0100, L504.2610, L500.4050 #### [facility] [address] [place], [address] Bilirubin [Mass/Vol] 0.54 mg/dL Normal 0.00-1.30 [facility] Comment on above: Performed By: #### L 100.0100, L504.2610, L500.4050 #### [facility] [address] [place], [address] BUN/CRE 11.3 RATIO Normal 10-20 [facility] Comment on above: Performed By: #### L 100.0100, L504.2610, L500.4050 #### [facility] [address] [place], [address] Calcium [Mass/Vol] 9.5 mg/dL Normal 7.6-11.0 [facility] Comment on above: Performed By: #### L 100.0100, L504.2610, L500.4050 #### [facility] [address] [place], [address] Chloride [Moles/Vol] 103 mmol/L Normal 98-108 [facility] Comment on above: Performed By: #### L 100.0100, L504.2610, L500.4050 #### [facility] [address] [place], [address] CO2 [Moles/Vol] 18.1 mmol/L Low 21.0-32.0 [facility] Comment on above: Performed By: #### L 100.0100, L504.2610, L500.4050 #### [facility] [address] [place], [address] Creatinine [Mass/Vol] 2.77 mg/dL High 0.70-1.20 [facility] Comment on above: Performed By: #### L 100.0100, L504.2610, L500.4050 #### [facility] [address] [place], [address] GAP 16 High 5-15 [facility] Comment on above: Performed By: #### L 100.0100, L504.2610, L500.4050 #### [facility] [address] [place], [address] GFR/1.73 sq M.predicted among non-blacks MDRD (S/P/Bld) [Vol rate/Area] 25 mL/min/{1.73_m2} Low >60 [facility] Comment on above: Result Comment: mL/m in/1.73m2 CKD-EPI Creatinine Equation (2020) Performed By: #### L 100.0100, L504.2610, L500.4050 #### [facility] [address] [place], [address] Globulin (S) [Mass/Vol] 3.0 g/dL Normal 2.2-4.2 [facility] Comment on above: Performed By: #### L 100.0100, L504.2610, L500.4050 #### [facility] [address] [place], [address] Glucose [Mass/Vol] 116 mg/dL High 70-99 [facility] Comment on above: Performed By: #### L 100.0100, L504.2610, L500.4050 #### [facility] [address] [place], [address] Potassium [Moles/Vol] 4.6 mmol/L Normal 3.3-5.1 [facility] Comment on above: Performed By: #### L 100.0100, L504.2610, L500.4050 #### [facility] [address] [place], [address] Sodium [Moles/Vol] 138 mmol/L Normal 133-145 [facility] Comment on above: Performed By: #### L 100.0100, L504.2610, L500.4050 #### [facility] [address] [place], [address] T PROT 7.0 g/dL Normal 5.9-8.4 [facility] Comment on above: Performed By: #### L 100.0100, L504.2610, L500.4050 #### [facility] [address] [place], [address] Urea nitrogen [Mass/Vol] 31 mg/dL High 4-19 [facility] Comment on above: Performed By: #### L 100.0100, L504.2610, L500.4050 #### [facility] [address] [place], [address] Emergency Department Summary on 10-18-2024 Emergency Department Summary [facility] Medical Records Department [address] [place] [id number] Emergency Department Summary 10/18/24 MR#: [id number] Acct: [id number] Name: YEFRI YANEZ Rep #: [id number] : 1965 59 From: Veronica Jackson MD PCP: Dr. Daksha Turner MD Status:ADM IN Location: [place] [address] HPI History of Present Illness Chief Complaint: [...] in his stool. Denies any recent antibiotics. [facility] Medical History Atrial fibrillation Abnormal chest x-ray [...] reactive. N (more content not included)... Normal [facility] Eosinophil percentageOrdered By: Veronica Jackson on 10-18-2024 Eosinophils/100 WBC (Bld) 2.5 % 0-5 [facility] Erythrocyte distribution wid th ratioOrdered By: Veronica Jackson on 10-18-2024 Erythrocyte distribution width (RBC) [Ratio] 18.1 % High 11.6-14.6 [facility] Erythrocyte distribution wid th standard deviationOrdered By: Veronica Jackson on 10-18-2024 Erythrocyte distribution width (RBC) [Ratio] 62.2 fl High 35.1-43.9 [facility] Glomerular filtration rate ( GFR) estimation/1.73 sq m using serum, plasma, or whole bOrdered By: Veronica Jackson on 10-18-2024 GFR/1.73 sq M.predicted among non-blacks MDRD (S/P/Bld) [Vol rate/Area] 25 mL/min/{1.73_m2} Low >60 [facility] Comment on above: mL/min/1.73m2 CKD-EP I Creatinine Equation (2020) Hematocrit Auto (Bld) [Volum e fraction]Ordered By: Veronica Jackson on 10-18-2024 Hematocrit (Bld) [Volume fraction] 42.5 % 40-54 [facility] Hemoglobin measurementOrdere d By: Veronica Jackson on 10-18-2024 Hemoglobin (Bld) [Mass/Vol] 14.6 g/dL 13.0-16.5 [facility] Hyaline casts LM.LPF (Urine sed) [#/Area]Ordered By: Veronica Jackson on 10-18-2024 Hyaline casts (Urine sed) [#/Area] 10 /[LPF] 0-5 [facility] Immature granulocytes/100 WB C Auto (Bld)Ordered By: Veronica Jackson on 10-18-2024 Immature granulocytes/100 WBC (Bld) 0.400 % 0.0-0.9 [facility] Comment on above: IG% - Immature Granu locytes (promyelocytes, myelocytes and metamyelocytes) > 1% indicates that a LEFT SHIFT is Present. Influenza virus A and B and SARS-CoV-2 (COVID-19) and Respiratory syncytial virus RNAOrdered By: Veronica Jackson on 10-18-2024 SARS-CoV-2 (COVID-19) RNA SANDOVAL+probe Ql (Unsp spec) [facility] Ketones Test strip Ql (U)Ord ered By: Veronica Jackson on 10-18-2024 Ketones Ql (U) Negative Negative [facility] Laboratory - Chemistry and C hemistry - challengeOrdered By: Veronica Jackson on 10-18-2024 AST [Catalytic activity/Vol] 46 U/L High <38 [facility] Lactic acid measurementOrder ed By: Veronica Jackson on 10-18-2024 Lactate [Moles/Vol] 1.0 mmol/L 0.0-2.0 [facility] Lipaseon 10-18-2024 Lipase [Catalytic activity/Vol] 86 U/L High 13-75 [facility] Comment on above: Result Comment: Sultana reid note: LIPASE revised reference range effective 22. New Lipase methodology. Expected to produce lower values than the previous assay method. NEW Reference Range: 13 - 75 U/L Performed By: #### L 100.0100, L504.2610, L500.4050 #### [facility] [address] [place] [address]. [place], [address] Lipase measurementOrdered By : Veronica Jackson on 10-18-2024 Lipase [Catalytic activity/Vol] 86 U/L High 13-75 [facility] Comment on above: Please note:LIPASE r evised reference range effective 22. New Lipase methodology. Expected to produce lower values than the previous assay method. NEW Reference Range: 13 - 75 U/L MCV (mean corpuscular volume ) determinationOrdered By: Veronica Jackson on 10-18-2024 MCV (RBC) [Entitic vol] 94.9 fL High 80-94 [facility] Mean corpuscular hemoglobin (MCH) determinationOrdered By: Veronica Jackson on 10-18-2024 MCH (RBC) [Entitic mass] 32.6 pg High 27.0-32.0 [facility] Mean corpuscular hemoglobin concentration (MCHC) determinationOrdered By: Veronica Jackson on 10-18-2024 MCHC (RBC) [Mass/Vol] 34.4 g/dL 32-36 [facility] Mean platelet volume determi nationOrdered By: Veronica Jackson on 10-18-2024 Platelet mean volume (Bld) [Entitic vol] 10.4 fL 6.2-12.0 [facility] Microscopic analysis of urin e for red blood cells (RBC)Ordered By: Veronica Jackson on 10-18-2024 Microscopic analysis of urine for red blood cells (RBC) 0-5 SEEN /hpf 0-5 [facility] Monocyte percentageOrdered B y: Veronica Jackson on 10-18-2024 Monocytes/100 WBC (Bld) 7.8 % 0-10 [facility] Mucus LM Ql (Urine sed)Order ed By: Veronica Jackson on 10-18-2024 Mucus Ql (Urine sed) 0 SEEN /hpf [facility] Neutrophil percentageOrdered By: Veronica Jackson on 10-18-2024 Neutrophils/100 WBC (Bld) 66.2 % 47-70 [facility] Nitrite Test strip Ql (U)Ord ered By: Veronica Jackson on 10-18-2024 Nitrite Ql (U) Negative Negative [facility] Nucleated red blood cell per centageOrdered By: Veronica Jackson on 10-18-2024 Nucleated RBC/100 WBC (Bld) [Ratio] 0 % 0-5 [facility] Platelet countOrdered By: Eunice Jackson on 10-18-2024 Platelets (Bld) [#/Vol] 201 10*3/uL 150-450 [facility] Potassium measurement (mass/ volume)Ordered By: Veronica Jackson on 10-18-2024 Potassium (Unsp spec) [Mass/Vol] 4.6 mmol/L 3.3-5.1 [facility] Protein Test strip Ql (U)Ord ered By: Veronica Jackson on 10-18-2024 Protein Ql (U) 30 mg/dl High Negative [facility] RBC Auto (Bld) [#/Vol]Ordere d By: Veronica Jackson on 10-18-2024 RBC (Bld) [#/Vol] 4.48 10*6/uL Low 4.6-6.2 [facility] Serum creatinine measurement (mass/volume)Ordered By: Veronica Jackson on 10-18-2024 Creatinine [Mass/Vol] 2.77 mg/dL High 0.70-1.20 [facility] Serum globulin measurementOr dered By: Veronica Jackson on 10-18-2024 Globulin (S) [Mass/Vol] 3.0 g/dL 2.2-4.2 [facility] Serum glucose measurement (m ass/volume)Ordered By: Veronica Jackson on 10-18-2024 Glucose [Mass/Vol] 116 mg/dL High 70-99 [facility] Serum or plasma alanine stafford otransferase (ALT) measurementOrdered By: Veronica Jackson on 10-18-2024 ALT [Catalytic activity/Vol] 47 U/L <47 [facility] Serum or plasma albumin cory urement (mass/volume)Ordered By: Veronica Jackson on 10-18-2024 Albumin [Mass/Vol] 4.0 g/dL 3.4-4.8 [facility] Serum or plasma albumin/glob ulin mass ratioOrdered By: Veronica Jackson on 10-18-2024 Albumin/Globulin [Mass ratio] 1.3 {ratio} 0.9-2.4 [facility] Serum or plasma alkaline damaso sphatase measurementOrdered By: Veronica Jackson on 10-18-2024 ALP [Catalytic activity/Vol] 58 U/L 40-129 [facility] Serum or plasma calcium cory urement (mass/volume)Ordered By: Veronica Jackson on 10-18-2024 Calcium [Mass/Vol] 9.5 mg/dL 7.6-11.0 [facility] Serum or plasma urea nitroge n measurement (mass/volume)Ordered By: Veronica Jackson on 10-18-2024 Urea nitrogen [Mass/Vol] 31 mg/dL High 4-19 [facility] Sodium levelOrdered By: Jesús Jackson on 10-18-2024 Sodium [Moles/Vol] 138 mmol/L 133-145 [facility] Squamous epithelial cells de tection in urine sediment by light microscopyOrdered By: Veronica Jackson on 10-18-2024 Epithelial cells.squamous LM Ql (Urine sed) 0-5 SEEN /hpf 0-5 [facility] Total proteinOrdered By: Neeta Jackson on 10-18-2024 Protein [Mass/Vol] 7.0 g/dL 5.9-8.4 [facility] Urine clarityOrdered By: Neeta Jackson on 10-18-2024 Clarity (U) Clear Clear [facility] Urine color determinationOrd ered By: Veronica Jackson on 10-18-2024 Color (U) Yellow Yellow [facility] Urine glucose detectionOrder ed By: Veronica Jackson on 10-18-2024 Glucose Ql (U) 100 mg/dl High Normal [facility] Urine leukocyte esterase det ection by dipstickOrdered By: Veronica Jackson on 10-18-2024 Leukocyte esterase Test strip Ql (U) Negative Negative [facility] Urine pHOrdered By: Veronica vega on 10-18-2024 pH (U) 5.0 [pH] 5.0 - 8.0 [facility] Urine sediment bacteria coun t by microscopy (number/high power field)Ordered By: Veronica Jackson on 10-18-2024 Bacteria LM.HPF (Urine sed) [#/Area] 1 /[HPF] None Seen [facility] Urine specific gravity measu rementOrdered By: Veronica Jackson on 10-18-2024 Specific gravity (U) [Rel density] 1.020 1.002-1.03 0 [facility] Urine urobilinogen measureme ntOrdered By: Veroncia Jackson on 10-18-2024 Urobilinogen Ql (U) Normal mg/dl Normal [facility] White blood cell (WBC) count Ordered By: Veronica Jackson on 10-18-2024 WBC (Bld) [#/Vol] 5.1 10*3/uL 4.4-11.0 [facility] White blood cell countOrdere d By: Veronica Jackson on 10-18-2024 White blood cell count 0-5 SEEN /hpf 0-5 [facility] Absolute lymphocyte countOrd ered By: Gini Couch on 10-02-2024 Lymphocytes Auto (Unsp spec) [#/Vol] 1.41 10*3/uL 0.83-4.51 [facility] Absolute neutrophil countOrd ered By: Gini Couch on 10-02-2024 Neutrophils (Bld) [#/Vol] 3.8 10*3/uL 2.0-7.7 [facility] Anion gap in Serum or Plasma Ordered By: Gini Couch on 10-02-2024 Anion gap [Moles/Vol] 13 mmol/L 5-15 [facility] Automated blood erythrocyte countOrdered By: Gini Couch on 10-02-2024 RBC (Bld) [#/Vol] 4.48 10*6/uL Low 4.6-6.2 [facility] Comment on above: Performed By: #### L 500.2500, L100.0100 #### [facility] [address] [place], [address] Automated blood hematocrit ( percentage)Ordered By: Gini Couch on 10-02-2024 Hematocrit (Bld) [Volume fraction] 43.4 % Normal 40-54 [facility] Comment on above: Performed By: #### L 500.2500, L100.0100 #### [facility] [address] [place], [address] Automated lymphocyte count a s percentage of total leukocytesOrdered By: Gini Couch on 10-02-2024 Lymphocytes/100 WBC Auto (Unsp spec) 24.7 % 19-41 [facility] BUN/creatinine ratioOrdered By: Gini Couch on 10-02-2024 Urea nitrogen/Creatinine [Mass ratio] 10.6 mg/mg 10- [facility] Basic Metabolic Profile (BMP )on 10-02-2024 BUN/CRE 10.6 RATIO Normal - [facility] Comment on above: Performed By: #### L 500.2500, L100.0100 #### [facility] [address] [place], [address] Calcium [Mass/Vol] 9.5 mg/dL Normal 7.6-11.0 [facility] Comment on above: Performed By: #### L 500.2500, L100.0100 #### [facility] [address] [place], [address] Chloride [Moles/Vol] 102 mmol/L Normal 98-108 [facility] Comment on above: Performed By: #### L 500.2500, L100.0100 #### [facility] [address] [place], [address] CO2 [Moles/Vol] 20.4 mmol/L Low 21.0-32.0 [facility] Comment on above: Performed By: #### L 500.2500, L100.0100 #### [facility] [address] [place], [address] Creatinine [Mass/Vol] 2.65 mg/dL High 0.70-1.20 [facility] Comment on above: Performed By: #### L 500.2500, L100.0100 #### [facility] [address] [place], [address] GAP 13 Normal 5-15 [facility] Comment on above: Performed By: #### L 500.2500, L100.0100 #### [facility] [address] [place], [address] GFR/1.73 sq M.predicted among non-blacks MDRD (S/P/Bld) [Vol rate/Area] 27 mL/min/{1.73_m2} Low >60 [facility] Comment on above: Result Comment: mL/m in/1.73m2 CKD-EPI Creatinine Equation (2020) Performed By: #### L 500.2500, L100.0100 #### [facility] [address] [place], [address] Glucose [Mass/Vol] 131 mg/dL High 70-99 [facility] Comment on above: Performed By: #### L 500.2500, L100.0100 #### [facility] [address] [place], [address] Potassium [Moles/Vol] 4.5 mmol/L Normal 3.3-5.1 [facility] Comment on above: Result Comment: Hemo lysis present, Results??could be affected. ?? Performed By: #### L 500.2500, L100.0100 #### [facility] [address] [place], [address] Sodium [Moles/Vol] 136 mmol/L Normal 133-145 [facility] Comment on above: Performed By: #### L 500.2500, L100.0100 #### [facility] [address] [place], [address] Urea nitrogen [Mass/Vol] 28 mg/dL High 4-19 [facility] Comment on above: Performed By: #### L 500.2500, L100.0100 #### [facility] [address] [place], [address] Basophil percentageOrdered B y: Gini Couch on 10-02-2024 Basophils/100 WBC (Bld) 0.4 % Normal 0-1 [facility] Comment on above: Performed By: #### L 500.2500, L100.0100 #### [facility] [address] [place], [address] CBC W/Diff, Automatedon -2 Absolute Lymph 1.41 X10 3/uL Normal 0.83-4.51 [facility] Comment on above: Performed By: #### L 500.2500, L100.0100 #### [facility] [address] [place], [address] Absolute Neut 3.8 X10 3/uL Normal 2.0-7.7 [facility] Comment on above: Performed By: #### L 500.2500, L100.0100 #### [facility] [address] [place], [address] IG% 0.400 Normal 0.0-0.9 [facility] Comment on above: Result Comment: IG% - Immature Granulocytes (promyelocytes, myelocytes and metamyelocytes) > 1% indicates that a LEFT SHIFT is Present. Performed By: #### L 500.2500, L100.0100 #### [facility] [address] [place], [address] Lymphocytes/100 WBC (Bld) 24.7 % Normal 19-41 [facility] Comment on above: Performed By: #### L 500.2500, L100.0100 #### [facility] [address] [place], [address] Nucleated RBC (Bld) [#/Vol] 0.5 10*3/uL Normal 0-5 [facility] Comment on above: Performed By: #### L 500.2500, L100.0100 #### [facility] [address] [place], [address] RDW SD 61.3 fl High 35.1-43.9 [facility] Comment on above: Performed By: #### L 500.2500, L100.0100 #### [facility] [address] [place], [address] Carbon dioxide, total [Moles /volume] in Central venous bloodOrdered By: Gini Couch on 10-02-2024 CO2 [Moles/Vol] 20.4 mmol/L Low 21.0-32.0 [facility] Cardiology Visit Reporton Cardiology Visit Report [facility] [address] [place] [address] OFFICE VISIT Date of Service: 10/02/24 MR#: [id number] Acct: [id number] Name: YEFRI YANEZ Rep #: [id number] : 1965 Provider: JARVIS campos Age/Sex: 59/M Location: [facility] [place] Status: Signed HPI HPI History of [...] the care of the oncologist here at [facility]. He had presented to the hospital [...] he had a DC cardioversion at the [facility] system in September 2021. He had previously been seeing a service architect in the [facility] system. During this admission to the hospital in May 2022 his medications were optimized he was diuresed his creatinine actually improved and he was subsequently discharged to find a service architect. He also had a history of atrial [...] air Intake Visit Reasons: 6-8 W FU Director Speech And Hearing Required: No Accompanied by: Self Is patient [...] DAILY #06/07 (more content not included)... Normal [facility] Chloride assayOrdered By: Eduardo Couch on 10-02-2024 Chloride [Moles/Vol] 102 mmol/L 98-108 [facility] Eosinophil percentageOrdered By: Gini Couch on 10-02-2024 Eosinophils/100 WBC (Bld) 1.9 % Normal 0-5 [facility] Comment on above: Performed By: #### L 500.2500, L100.0100 #### [facility] [address] [place], [address] Erythrocyte distribution wid th ratioOrdered By: Gini Couch on 10-02-2024 Erythrocyte distribution width (RBC) [Ratio] 17.2 % High 11.6-14.6 [facility] Comment on above: Performed By: #### L 500.2500, L100.0100 #### [facility] [address] [place], [address] Erythrocyte distribution wid th standard deviationOrdered By: Gini Couch on 10-02-2024 Erythrocyte distribution width (RBC) [Ratio] 61.3 fl High 35.1-43.9 [facility] Glomerular filtration rate ( GFR) estimation/1.73 sq m using serum, plasma, or whole bOrdered By: Gini Couch on 10-02-2024 GFR/1.73 sq M.predicted among non-blacks MDRD (S/P/Bld) [Vol rate/Area] 27 mL/min/{1.73_m2} Low >60 [facility] Comment on above: mL/min/1.73m2 CKD-EP I Creatinine Equation (2020) Hemoglobin measurementOrdere d By: Gini Couch on 10-02-2024 Hemoglobin (Bld) [Mass/Vol] 14.6 g/dL Normal 13.0-16.5 [facility] Comment on above: Performed By: #### L 500.2500, L100.0100 #### [facility] [address] [place], [address] Immature granulocytes/100 WB C Auto (Bld)Ordered By: Gini Couch on 10-02-2024 Immature granulocytes/100 WBC (Bld) 0.400 % 0.0-0.9 [facility] Comment on above: IG% - Immature Granu locytes (promyelocytes, myelocytes and metamyelocytes) > 1% indicates that a LEFT SHIFT is Present. MCV (mean corpuscular volume ) determinationOrdered By: Gini Couch on 10-02-2024 MCV (RBC) [Entitic vol] 96.9 fL High 80-94 [facility] Comment on above: Performed By: #### L 500.2500, L100.0100 #### [facility] [address] [facility] [place], [address] Mean corpuscular hemoglobin (MCH) determinationOrdered By: Gini Couch on 10-02-2024 MCH (RBC) [Entitic mass] 32.6 pg High 27.0-32.0 [facility] Comment on above: Performed By: #### L 500.2500, L100.0100 #### [facility] [address] [place], [address] Mean corpuscular hemoglobin concentration (MCHC) determinationOrdered By: Gini Couch on 10-02-2024 MCHC (RBC) [Mass/Vol] 33.6 g/dL Normal 32-36 [facility] Comment on above: Performed By: #### L 500.2500, L100.0100 #### [facility] [address] [place], [address] Mean platelet volume determi nationOrdered By: Gini Couch on 10-02-2024 Platelet mean volume (Bld) [Entitic vol] 10.7 fL Normal 6.2-12.0 [facility] Comment on above: Performed By: #### L 500.2500, L100.0100 #### [facility] [address] [place], [address] Monocyte percentageOrdered B y: Gini Couch on 10-02-2024 Monocytes/100 WBC (Bld) 5.4 % Normal 0-10 [facility] Comment on above: Performed By: #### L 500.2500, L100.0100 #### [facility] [address] [place], [address] Neutrophil percentageOrdered By: Gini Couch on 10-02-2024 Neutrophils/100 WBC (Bld) 67.2 % Normal 47-70 [facility] Comment on above: Performed By: #### L 500.2500, L100.0100 #### [facility] [address] [place], [address] Nucleated red blood cell per centageOrdered By: Gini Couch on 10-02-2024 Nucleated RBC/100 WBC (Bld) [Ratio] 0.5 % 0-5 [facility] Platelet countOrdered By: Eduardo Couch on 10-02-2024 Platelets (Bld) [#/Vol] 213 10*3/uL Normal 150-450 [facility] Comment on above: Performed By: #### L 500.2500, L100.0100 #### [facility] [address] [facility] [place], [address] Potassium measurement (mass/ volume)Ordered By: Gini Couch on 10-02-2024 Potassium (Unsp spec) [Mass/Vol] 4.5 mmol/L 3.3-5.1 [facility] Comment on above: Hemolysis present, R esults could be affected. Serum creatinine measurement (mass/volume)Ordered By: Gini Couch on 10-02-2024 Creatinine [Mass/Vol] 2.65 mg/dL High 0.70-1.20 [facility] Serum glucose measurement (m ass/volume)Ordered By: Gini Couch on 10-02-2024 Glucose [Mass/Vol] 131 mg/dL High 70-99 [facility] Serum or plasma calcium cory urement (mass/volume)Ordered By: Gini Couch on 10-02-2024 Calcium [Mass/Vol] 9.5 mg/dL 7.6-11.0 [facility] Serum or plasma urea nitroge n measurement (mass/volume)Ordered By: Gini Couch on 10-02-2024 Urea nitrogen [Mass/Vol] 28 mg/dL High 4-19 [facility] Sodium levelOrdered By: Mercedes Couch on 10-02-2024 Sodium [Moles/Vol] 136 mmol/L 133-145 [facility] White blood cell (WBC) count Ordered By: Gini Couch on 10-02-2024 WBC (Bld) [#/Vol] 5.7 10*3/uL Normal 4.4-11.0 [facility] Comment on above: Performed By: #### L 500.2500, L100.0100 #### [facility] [address] [place], [address] Anion gap in Serum or Plasma Ordered By: Daksha Turner on 09-25-2024 Anion gap [Moles/Vol] 11 mmol/L - [facility] BUN/creatinine ratioOrdered By: Daksha Turner on 09-25-2024 Urea nitrogen/Creatinine [Mass ratio] 11.7 mg/mg - [facility] Basic Metabolic Profile (BMP )on 09-25-2024 BUN/CRE 11.7 RATIO Normal 12-25 [facility] Comment on above: Order Comment: 1 Performed By: #### L 100.0100, L504.2610, L500.4050 #### [facility] [address] [place], [address] Calcium [Mass/Vol] 9.7 mg/dL Normal 7.6-11.0 [facility] Comment on above: Order Comment: 1 Performed By: #### L 100.0100, L504.2610, L500.4050 #### [facility] [address] [place], [address] Chloride [Moles/Vol] 102 mmol/L Normal 98-108 [facility] Comment on above: Order Comment: 1 Performed By: #### L 100.0100, L504.2610, L500.4050 #### [facility] [address] [place], [address] CO2 [Moles/Vol] 23.7 mmol/L Normal 21.0-32.0 [facility] Comment on above: Order Comment: 1 Performed By: #### L 100.0100, L504.2610, L500.4050 #### [facility] [address] [place], [address] Creatinine [Mass/Vol] 2.11 mg/dL High 0.70-1.20 [facility] Comment on above: Order Comment: 1 Performed By: #### L 100.0100, L504.2610, L500.4050 #### [facility] [address] [place], [address] GAP 11 Normal 5-15 [facility] Comment on above: Order Comment: 1 Performed By: #### L 100.0100, L504.2610, L500.4050 #### [facility] [address] [place], [address] GFR/1.73 sq M.predicted among non-blacks MDRD (S/P/Bld) [Vol rate/Area] 35 mL/min/{1.73_m2} Low >60 [facility] Comment on above: Order Comment: 1 Result Comment: mL/m in/1.73m2 CKD-EPI Creatinine Equation (2020) Performed By: #### L 100.0100, L504.2610, L500.4050 #### [facility] [address] [place], [address] Glucose [Mass/Vol] 99 mg/dL Normal 70-99 [facility] Comment on above: Order Comment: 1 Performed By: #### L 100.0100, L504.2610, L500.4050 #### [facility] [address] [place], [address] Potassium [Moles/Vol] 4.5 mmol/L Normal 3.3-5.1 [facility] Comment on above: Order Comment: 1 Performed By: #### L 100.0100, L504.2610, L500.4050 #### [facility] [address] [place], [address] Sodium [Moles/Vol] 136 mmol/L Normal 133-145 [facility] Comment on above: Order Comment: 1 Performed By: #### L 100.0100, L504.2610, L500.4050 #### [facility] [address] [place], [address] Urea nitrogen [Mass/Vol] 25 mg/dL High 4-19 [facility] Comment on above: Order Comment: 1 Performed By: #### L 100.0100, L504.2610, L500.4050 #### [facility] [address] [place], [address] CBC-Complete Blood Cnt No Di ffon 09-25-2024 Erythrocyte distribution width (RBC) [Ratio] 17.0 % High 11.6-14.6 [facility] Comment on above: Order Comment: 1 Performed By: #### L 100.0100, L504.2610, L500.4050 #### [facility] [address] [place], [address] Hematocrit (Bld) [Volume fraction] 41.6 % Normal 40-54 [facility] Comment on above: Order Comment: 1 Performed By: #### L 100.0100, L504.2610, L500.4050 #### [facility] [address] [place], [address] Hemoglobin (Bld) [Mass/Vol] 14.2 g/dL Normal 13.0-16.5 [facility] [facility] Comment on above: Order Comment: 1 Performed By: #### L 100.0100, L504.2610, L500.4050 #### [facility] [address] [place], [address] MCH (RBC) [Entitic mass] 32.6 pg High 27.0-32.0 [facility] Comment on above: Order Comment: 1 Performed By: #### L 100.0100, L504.2610, L500.4050 #### [facility] [address] [place], [address] MCHC (RBC) [Mass/Vol] 34.1 g/dL Normal 32-36 [facility] Comment on above: Order Comment: 1 Performed By: #### L 100.0100, L504.2610, L500.4050 #### [facility] [address] [place], [address] MCV (RBC) [Entitic vol] 95.6 fL High 80-94 [facility] Comment on above: Order Comment: 1 Performed By: #### L 100.0100, L504.2610, L500.4050 #### [facility] [address] [place], [address] Platelet mean volume (Bld) [Entitic vol] 11.0 fL Normal 6.2-12.0 [facility] Comment on above: Order Comment: 1 Performed By: #### L 100.0100, L504.2610, L500.4050 #### [facility] [address] [place], [address] Platelets (Bld) [#/Vol] 189 10*3/uL Normal 150-450 [facility] Comment on above: Order Comment: 1 Performed By: #### L 100.0100, L504.2610, L500.4050 #### [facility] [address] [place], [address] RBC (Bld) [#/Vol] 4.35 10*6/uL Low 4.6-6.2 [facility] Comment on above: Order Comment: 1 Performed By: #### L 100.0100, L504.2610, L500.4050 #### [facility] [address] [place], [address] RDW SD 59.6 fl High 35.1-43.9 [facility] Comment on above: Order Comment: 1 Performed By: #### L 100.0100, L504.2610, L500.4050 #### [facility] [address] [place], [address] WBC (Bld) [#/Vol] 6.1 10*3/uL Normal 4.4-11.0 [facility] Comment on above: Order Comment: 1 Performed By: #### L 100.0100, L504.2610, L500.4050 #### [facility] [address] [place], [address] Carbon dioxide, total [Moles /volume] in Central venous bloodOrdered By: Daksha Turner on 09-25-2024 CO2 [Moles/Vol] 23.7 mmol/L 21.0-32.0 [facility] Cardiovascular stress test r eportOrdered By: Moises Gaona on 09-25-2024 Study report [facility] [address] [place] [address] MR#: [id number] Acct: [id number] Name: YEFRI YANEZ Rep #: [id number] : 1965 59 From: Moises Gaona MD Primary Care: Dr. Daksha Turner MD Status: REG CLI Referring Dr: Gini Couch NP SOFT IRON INSPECTOR-C Sex: M AA Stress Test Report Pharmacologic [...] ~ Date Dictated: 09/25/241745 Date Transcribed: 09/25/241745 Horticulture Superintendent: [place] Signed [facility] Work Phone: Chloride assayOrdered By: Sejal Turner on 09-25-2024 Chloride [Moles/Vol] 102 mmol/L 98-108 [facility] Echo Completeon 09-25-2024 Echo Complete [facility] [address] [place] [address] Echo Complete 09/24/242019 MR#: [id number] Acct: [id number] Name: YEFRI YANEZ Rep #: [id number] : 1965 59 From: Moises Gaona MD Attending Dr: Gini Couch NP-C Status: REG C LI Ordering Dr: Gini Couch NP SOFT IRON INSPECTOR-C Date: 09/25/24 Location: [facility] Sex: M AA [...] RCS 09/25/241728 Date Moises Gaona MD CC: SOFT IRON INSPECTOR-C Gini Couch; Dr. Daksha Turner MD Date Dictated: 09/24/242019 Date Transcribed: 09/25/241728 Horticulture Superintendent: Signed Normal [facility] Echocardiogram study reportO rdered By: Moises Gaona on 09-25-2024 Study report [facility] [address] [place] [address] Echo Complete 09/24/242019 MR#: [id number] Acct: [id number] Name: YEFRI YANEZ Rep #:[id number] : 1965 59 From: Moises Scott Attending [...] 09/25/241728 Date _ Moises Gaona MD CC: SOFT IRON INSPECTOR-C Gini Couch; Dr. Daksha Turner MD ~ Date Dictated: 09/24/242019 Date Transcribed: 09/25/241728 Horticulture Superintendent: Signed [facility] Work Phone: Erythrocyte Sed Rateon 09-25 SED RATE 30 mm/hr High 0-20 [facility] Comment on above: Order Comment: 1 Performed By: #### L 100.0100, L504.2610, L500.4050 #### [facility] [address] [place], [place], [address] Erythrocyte distribution wid th ratioOrdered By: Daksha Turner on 09-25-2024 Erythrocyte distribution width (RBC) [Ratio] 17.0 % High 11.6-14.6 [facility] Erythrocyte distribution wid th standard deviationOrdered By: Daksha Turner on 09-25-2024 Erythrocyte distribution width (RBC) [Ratio] 59.6 fl High 35.1-43.9 [facility] Erythrocyte sedimentation ra teOrdered By: Daksha Turner on 09-25-2024 ESR (Bld) [Velocity] 30 mm/h High 0-20 [facility] Ferritinon 09-25-2024 Ferritin [Mass/Vol] 590 ng/mL High 37-417 [facility] Comment on above: Order Comment: 1 Performed By: #### L 100.0100, L504.2610, L500.4050 #### [facility] [address] [place], [address] Glomerular filtration rate ( GFR) estimation/1.73 sq m using serum, plasma, or whole bOrdered By: Daksha Turner on 09-25-2024 GFR/1.73 sq M.predicted among non-blacks MDRD (S/P/Bld) [Vol rate/Area] 35 mL/min/{1.73_m2} Low >60 [facility] Comment on above: mL/min/1.73m2 CKD-EP I Creatinine Equation (2020) Hematocrit Auto (Bld) [Volum e fraction]Ordered By: Daksha Turner on 09-25-2024 Hematocrit (Bld) [Volume fraction] 41.6 % 40-54 [facility] Hemoglobin measurementOrdere d By: Daksha Turner on 09-25-2024 Hemoglobin (Bld) [Mass/Vol] 14.2 g/dL 13.0-16.5 [facility] Ironon 09-25-2024 Iron [Mass/Vol] 115 ug/dL Normal 65-175 [facility] Comment on above: Order Comment: 1 Performed By: #### L 100.0100, L504.2610, L500.4050 #### [facility] [address] [place], [address] Iron measurement (mass/mass) Ordered By: Daksha Turner on 09-25-2024 Iron (Unsp spec) [Mass/Mass] 115 ug/dL 65-175 [facility] MCV (mean corpuscular volume ) determinationOrdered By: Daksha Turner on 09-25-2024 MCV (RBC) [Entitic vol] 95.6 fL High 80-94 [facility] Magnesiumon 09-25-2024 Magnesium [Mass/Vol] 1.9 mg/dL Normal 1.5-2.2 [facility] Comment on above: Order Comment: 1 Performed By: #### L 100.0100, L504.2610, L500.4050 #### [facility] [address] [place], [address] Magnesium measurement (mass/ volume)Ordered By: Daksha Turner on 09-25-2024 Magnesium (Unsp spec) [Mass/Vol] 1.9 mg/dL 1.5-2.2 [facility] Mean corpuscular hemoglobin (MCH) determinationOrdered By: Daksha Turner on 09-25-2024 MCH (RBC) [Entitic mass] 32.6 pg High 27.0-32.0 [facility] Mean corpuscular hemoglobin concentration (MCHC) determinationOrdered By: Daksha Turner on 09-25-2024 MCHC (RBC) [Mass/Vol] 34.1 g/dL 32-36 [facility] Mean platelet volume determi nationOrdered By: Daksha Turner on 09-25-2024 Platelet mean volume (Bld) [Entitic vol] 11.0 fL 6.2-12.0 [facility] PTHINon 09-25-2024 PTH 242 pg/mL High 11-61 [facility] Comment on above: Order Comment: Order Date: 09/25/24Order Info: [id number] - PTHIN Performed By: #### L 100.0100, L504.2610, L500.4050 #### [facility] [address] [place] [address], [address] Platelet countOrdered By: Sejal Turner on 09-25-2024 Platelets (Bld) [#/Vol] 189 10*3/uL 150-450 [facility] Potassium measurement (mass/ volume)Ordered By: Daksha Turner on 09-25-2024 Potassium (Unsp spec) [Mass/Vol] 4.5 mmol/L 3.3-5.1 [facility] RBC Auto (Bld) [#/Vol]Ordere d By: Daksha Turner on 09-25-2024 RBC (Bld) [#/Vol] 4.35 10*6/uL Low 4.6-6.2 [facility] Serum creatinine measurement (mass/volume)Ordered By: Daksha Turner on 09-25-2024 Creatinine [Mass/Vol] 2.11 mg/dL High 0.70-1.20 [facility] Serum glucose measurement (m ass/volume)Ordered By: Daksha Turner on 09-25-2024 Glucose [Mass/Vol] 99 mg/dL 70-99 [facility] Serum or plasma calcium cory urement (mass/volume)Ordered By: Daksha Turner on 09-25-2024 Calcium [Mass/Vol] 9.7 mg/dL 7.6-11.0 [facility] Serum or plasma ferritin meliton surement (mass/volume)Ordered By: Daksha Turner on 09-25-2024 Ferritin [Mass/Vol] 590 ng/mL High 37-417 [facility] Serum or plasma urea nitroge n measurement (mass/volume)Ordered By: Daksha Turner on 09-25-2024 Urea nitrogen [Mass/Vol] 25 mg/dL High 4-19 [facility] Sodium levelOrdered By: Shawna Turner on 09-25-2024 Sodium [Moles/Vol] 136 mmol/L 133-145 [facility] Stress Reporton 09-25-2024 Stress Report [facility] [address] [place] [address] MR#: [id number] Acct: [id number] Name: YEFRI YANEZ Rep #: [id number] : 1965 59 From: Moises Gaona MD Primary Care: Dr. Daksha Turner MD Status: REG I Referring Dr: Gini Cocuh NP SOFT IRON INSPECTOR-C Sex: M A A Stress Test Report [...] MD Date Dictated: 09/25/241745 Date Transcribed: 09/25/241745 Horticulture Superintendent: [place] Signed Normal [facility] Vitamin B12on 09-25-2024 Cobalamin (Vitamin B12) [Mass/Vol] 490 pg/mL Normal 180-914 [facility] Comment on above: Order Comment: Order Date: 09/25/24Order Info: [id number] - BMPOrder Info: [id number] - MGOrder Info: [id number] - FEOrder Info: [id number] - MARTIN Performed By: #### L 100.0100, L504.2610, L500.4050 #### [facility] [address] [place], [address] Vitamin B12 ser/plasOrdered By: Daksha Turner on 09-25-2024 Cobalamin (Vitamin B12) [Mass/Vol] 490 pg/mL 180-914 [facility] Vitamin D,25 Hydroxyon 09-25 Vitamin D 25-OH 16.2 ng/mL Low 30-100 [facility] Comment on above: Order Comment: Order Date: 09/25/24Order Info: [id number] - BMPOrder Info: [id number] - MGOrder Info: [id number] - FEOrder Info: [id number] - MARTIN Result Comment: Constanza min D Status Deficiency: <20 ng/mL (50nmol/L) Insufficiency: 20-30 ng/mL (50-75 nmol/L) Sufficiency: 30-100 ng/mL (75-250 nmol/L) Toxicity: >100 ng/mL (>250 nmol/L) Performed By: #### L 100.0100, L504.2610, L500.4050 #### [facility] [address] [place], [address] White blood cell (WBC) count Ordered By: Daksha Turner on 09-25-2024 WBC (Bld) [#/Vol] 6.1 10*3/uL 4.4-11.0 [facility] Absolute lymphocyte countOrd ered By: Gini Couch on 08-14-2024 Lymphocytes Auto (Unsp spec) [#/Vol] 1.02 10*3/uL 0.83-4.51 [facility] Absolute neutrophil countOrd ered By: Gini Couch on 08-14-2024 Neutrophils (Bld) [#/Vol] 3.6 10*3/uL 2.0-7.7 [facility] Anion gap in Serum or Plasma Ordered By: Gini Couch on 08-14-2024 Anion gap [Moles/Vol] 10 mmol/L 5-15 [facility] Automated lymphocyte count a s percentage of total leukocytesOrdered By: Gini Couch on 08-14-2024 Lymphocytes/100 WBC Auto (Unsp spec) 18.9 % Low 19-41 [facility] BUN/creatinine ratioOrdered By: Gini Couch on 08-14-2024 Urea nitrogen/Creatinine [Mass ratio] 9.5 mg/mg Low 10-20 [facility] Basic Metabolic Profile (BMP )on 08-14-2024 BUN/CRE 9.5 RATIO Low - [facility] Comment on above: Performed By: #### L 501.5200, L100.0100, L500.2500, L501.9520 ####[facility] [address] [place], [address] Calcium [Mass/Vol] 9.5 mg/dL Normal 7.6-11.0 [facility] Comment on above: Performed By: #### L 501.5200, L100.0100, L500.2500, L501.9520 ####[facility] [address] [place], [address] Chloride [Moles/Vol] 102 mmol/L Normal 98-108 [facility] Comment on above: Performed By: #### L 501.5200, L100.0100, L500.2500, L501.9520 ####[facility] [address] [place], [address] CO2 [Moles/Vol] 26.2 mmol/L Normal 21.0-32.0 [facility] Comment on above: Performed By: #### L 501.5200, L100.0100, L500.2500, L501.9520 ####[facility] [address] [place], [address] Creatinine [Mass/Vol] 2.22 mg/dL High 0.70-1.20 [facility] Comment on above: Performed By: #### L 501.5200, L100.0100, L500.2500, L501.9520 ####[facility] [address] [place], [address] GAP 10 Normal 5-15 [facility] Comment on above: Performed By: #### L 501.5200, L100.0100, L500.2500, L501.9520 ####[facility] [address] [place], [address] GFR/1.73 sq M.predicted among non-blacks MDRD (S/P/Bld) [Vol rate/Area] 33 mL/min/{1.73_m2} Low >60 [facility] Comment on above: Result Comment: mL/m in/1.73m2 CKD-EPI Creatinine Equation (2020) Performed By: #### L 501.5200, L100.0100, L500.2500, L501.9520 ####[facility] [address] [place], [address] Glucose [Mass/Vol] 101 mg/dL High 70-99 [facility] Comment on above: Performed By: #### L 501.5200, L100.0100, L500.2500, L501.9520 ####[facility] [address] [place], [address] Potassium [Moles/Vol] 4.7 mmol/L Normal 3.3-5.1 [facility] Comment on above: Performed By: #### L 501.5200, L100.0100, L500.2500, L501.9520 ####[facility] [address] [place], [address] Sodium [Moles/Vol] 138 mmol/L Normal 133-145 [facility] Comment on above: Performed By: #### L 501.5200, L100.0100, L500.2500, L501.9520 ####[facility] [address] [place], [address] Urea nitrogen [Mass/Vol] 21 mg/dL High 4-19 [facility] Comment on above: Performed By: #### L 501.5200, L100.0100, L500.2500, L501.9520 ####[facility] [address] [place], [address] Basophil percentageOrdered B y: Gini Couch on 08-14-2024 Basophils/100 WBC (Bld) 0.4 % 0-1 [facility] CBC W/Diff, Automatedon 06 Absolute Lymph 1.02 X10 3/uL Normal 0.83-4.51 [facility] Comment on above: Performed By: #### L 501.5200, L100.0100, L500.2500, L501.9520 ####[facility] [address] [place], [address] Absolute Neut 3.6 X10 3/uL Normal 2.0-7.7 [facility] Comment on above: Performed By: #### L 501.5200, L100.0100, L500.2500, L501.9520 ####[facility] [address] [place], [address] Basophils/100 WBC (Bld) 0.4 % Normal 0-1 [facility] Comment on above: Performed By: #### L 501.5200, L100.0100, L500.2500, L501.9520 ####[facility] [address] [place], [address] Eosinophils/100 WBC (Bld) 2.2 % Normal 0-5 [facility] Comment on above: Performed By: #### L 501.5200, L100.0100, L500.2500, L501.9520 ####[facility] [address] [place], [address] Erythrocyte distribution width (RBC) [Ratio] 16.6 % High 11.6-14.6 [facility] Comment on above: Performed By: #### L 501.5200, L100.0100, L500.2500, L501.9520 ####[facility] [address] [place], [address] Hematocrit (Bld) [Volume fraction] 41.7 % Normal 40-54 [facility] Comment on above: Performed By: #### L 501.5200, L100.0100, L500.2500, L501.9520 ####[facility] [address] [place], [address] Hemoglobin (Bld) [Mass/Vol] 13.9 g/dL Normal 13.0-16.5 [facility] Comment on above: Performed By: #### L 501.5200, L100.0100, L500.2500, L501.9520 ####[facility] [address] [place], [address] IG% 0.200 Normal 0.0-0.9 [facility] Comment on above: Result Comment: IG% - Immature Granulocytes (promyelocytes, myelocytes and metamyelocytes) > 1% indicates that a LEFT SHIFT is Present. Performed By: #### L 501.5200, L100.0100, L500.2500, L501.9520 ####[facility] [address] [place], [address] Lymphocytes/100 WBC (Bld) 18.9 % Low 19-41 [facility] Comment on above: Performed By: #### L 501.5200, L100.0100, L500.2500, L501.9520 ####[facility] [address] [place], [address] MCH (RBC) [Entitic mass] 32.5 pg High 27.0-32.0 [facility] Comment on above: Performed By: #### L 501.5200, L100.0100, L500.2500, L501.9520 ####[facility] [address] [place], [address] MCHC (RBC) [Mass/Vol] 33.3 g/dL Normal 32-36 [facility] Comment on above: Performed By: #### L 501.5200, L100.0100, L500.2500, L501.9520 ####[facility] [address] [place], [address] MCV (RBC) [Entitic vol] 97.4 fL High 80-94 [facility] Comment on above: Performed By: #### L 501.5200, L100.0100, L500.2500, L501.9520 ####[facility] [address] [place], [address] Monocytes/100 WBC (Bld) 11.3 % High 0-10 [facility] Comment on above: Performed By: #### L 501.5200, L100.0100, L500.2500, L501.9520 ####[facility] [address] [place], [address] Neutrophils/100 WBC (Bld) 67.0 % Normal 47-70 [facility] Comment on above: Performed By: #### L 501.5200, L100.0100, L500.2500, L501.9520 ####[facility] [address] [place], [address] Nucleated RBC (Bld) [#/Vol] 0 10*3/uL Normal 0-5 [facility] Comment on above: Performed By: #### L 501.5200, L100.0100, L500.2500, L501.9520 ####[facility] [address] [place], [address] Platelet mean volume (Bld) [Entitic vol] 10.4 fL Normal 6.2-12.0 [facility] Comment on above: Performed By: #### L 501.5200, L100.0100, L500.2500, L501.9520 ####[facility] [address] [place], [address] Platelets (Bld) [#/Vol] 209 10*3/uL Normal 150-450 [facility] Comment on above: Performed By: #### L 501.5200, L100.0100, L500.2500, L501.9520 ####[facility] [address] [place], [address] RBC (Bld) [#/Vol] 4.28 10*6/uL Low 4.6-6.2 [facility] Comment on above: Performed By: #### L 501.5200, L100.0100, L500.2500, L501.9520 ####[facility] [address] [place], [address] RDW SD 59.1 fl High 35.1-43.9 [facility] Comment on above: Performed By: #### L 501.5200, L100.0100, L500.2500, L501.9520 ####[facility] [address] [place], [address] WBC (Bld) [#/Vol] 5.4 10*3/uL Normal 4.4-11.0 [facility] Comment on above: Performed By: #### L 501.5200, L100.0100, L500.2500, L501.9520 ####[facility] [address] [place], [address] Carbon dioxide, total [Moles /volume] in Central venous bloodOrdered By: Gini Couch on 08-14-2024 CO2 [Moles/Vol] 26.2 mmol/L 21.0-32.0 [facility] Cardiology Visit Reporton Cardiology Visit Report [facility] [address] [place] [address] OFFICE VISIT Date of Service: 08/14/24 MR#: [id number] Acct: [id number] Name: YEFRI YANEZ Rep #: [id number] : 1965 Provider: JARVIS campos Age/Sex: 59/M Location: [facility] Status: Signed HPI HPI History of Present [...] the care of the oncologist here at [facility]. He had presented to the hospital [...] he had a DC cardioversion at the [facility] system in September 2021. He had previously been seeing a service architect in the [facility] system. During this admission to the hospital in May 2022 his medications were optimized he was diuresed his creatinine actually improved and he was subsequently discharged to find a service architect. He also had a history of atrial [...] (%) 97 Intake Visit Reasons: 6 M Director Speech And Hearing Required: No Is patient in pain?: No [...] 06/0708/14/24 Rx (more content not included)... Normal [facility] Chloride assayOrdered By: Eduardo Couch on 08-14-2024 Chloride [Moles/Vol] 102 mmol/L 98-108 [facility] Eosinophil percentageOrdered By: Gini Couch on 08-14-2024 Eosinophils/100 WBC (Bld) 2.2 % 0-5 [facility] Erythrocyte distribution wid th ratioOrdered By: Gini Couch on 08-14-2024 Erythrocyte distribution width (RBC) [Ratio] 16.6 % High 11.6-14.6 [facility] Erythrocyte distribution wid th standard deviationOrdered By: Gini Couch on 08-14-2024 Erythrocyte distribution width (RBC) [Ratio] 59.1 fl High 35.1-43.9 [facility] Glomerular filtration rate ( GFR) estimation/1.73 sq m using serum, plasma, or whole bOrdered By: Gini Couch on 08-14-2024 GFR/1.73 sq M.predicted among non-blacks MDRD (S/P/Bld) [Vol rate/Area] 33 mL/min/{1.73_m2} Low >60 [facility] Comment on above: mL/min/1.73m2 CKD-EP I Creatinine Equation (2020) Hematocrit Auto (Bld) [Volum e fraction]Ordered By: Gini Couch on 08-14-2024 Hematocrit (Bld) [Volume fraction] 41.7 % 40-54 [facility] Hemoglobin measurementOrdere d By: Gini Couch on 08-14-2024 Hemoglobin (Bld) [Mass/Vol] 13.9 g/dL 13.0-16.5 [facility] Immature granulocytes/100 WB C Auto (Bld)Ordered By: Gini Couch on 08-14-2024 Immature granulocytes/100 WBC (Bld) 0.200 % 0.0-0.9 [facility] Comment on above: IG% - Immature Granu locytes (promyelocytes, myelocytes and metamyelocytes) > 1% indicates that a LEFT SHIFT is Present. MCV (mean corpuscular volume ) determinationOrdered By: Gini Couch on 08-14-2024 MCV (RBC) [Entitic vol] 97.4 fL High 80-94 [facility] Magnesiumon 08-14-2024 Magnesium [Mass/Vol] 2.3 mg/dL High 1.5-2.2 [facility] Comment on above: Performed By: #### L 501.5200, L100.0100, L500.2500, L501.9520 ####[facility] [address] [place], [place], [id number] Magnesium measurement (mass/ volume)Ordered By: Gini Couch on 08-14-2024 Magnesium (Unsp spec) [Mass/Vol] 2.3 mg/dL High 1.5-2.2 [facility] Mean corpuscular hemoglobin (MCH) determinationOrdered By: Gini Couch on 08-14-2024 MCH (RBC) [Entitic mass] 32.5 pg High 27.0-32.0 [facility] Mean corpuscular hemoglobin concentration (MCHC) determinationOrdered By: Gini Couch on 08-14-2024 MCHC (RBC) [Mass/Vol] 33.3 g/dL 32-36 [facility] Mean platelet volume determi nationOrdered By: Gini Couch on 08-14-2024 Platelet mean volume (Bld) [Entitic vol] 10.4 fL 6.2-12.0 [facility] Monocyte percentageOrdered B y: Gini Couch on 08-14-2024 Monocytes/100 WBC (Bld) 11.3 % High 0-10 [facility] Neutrophil percentageOrdered By: Gini Couch on 08-14-2024 Neutrophils/100 WBC (Bld) 67.0 % 47-70 [facility] Nucleated red blood cell per centageOrdered By: Gini Couch on 08-14-2024 Nucleated RBC/100 WBC (Bld) [Ratio] 0 % 0-5 [facility] Platelet countOrdered By: Eduardo Couch on 08-14-2024 Platelets (Bld) [#/Vol] 209 10*3/uL 150-450 [facility] Potassium measurement (mass/ volume)Ordered By: Gini Couch on 08-14-2024 Potassium (Unsp spec) [Mass/Vol] 4.7 mmol/L 3.3-5.1 [facility] RBC Auto (Bld) [#/Vol]Ordere d By: Gini Couch on 08-14-2024 RBC (Bld) [#/Vol] 4.28 10*6/uL Low 4.6-6.2 [facility] Serum creatinine measurement (mass/volume)Ordered By: Gini Couch on 08-14-2024 Creatinine [Mass/Vol] 2.22 mg/dL High 0.70-1.20 [facility] Serum glucose measurement (m ass/volume)Ordered By: Gini Couch on 08-14-2024 Glucose [Mass/Vol] 101 mg/dL High 70-99 [facility] Serum or plasma calcium cory urement (mass/volume)Ordered By: Gini Couch on 08-14-2024 Calcium [Mass/Vol] 9.5 mg/dL 7.6-11.0 [facility] Serum or plasma urea nitroge n measurement (mass/volume)Ordered By: Gini Couch on 08-14-2024 Urea nitrogen [Mass/Vol] 21 mg/dL High 4-19 [facility] Sodium levelOrdered By: Mercedes Couch on 08-14-2024 Sodium [Moles/Vol] 138 mmol/L 133-145 [facility] TSH DL <= 0.005 mIU/L QnOrde red By: Gini Couch on 08-14-2024 TSH Qn 1.940 uIU/mL 0.300-4.20 0 [facility] Thyroid Stim Hormone (TSH)on 08-14-2024 TSH 1.940 uIU/mL Normal 0.300-4.20 0 [facility] Comment on above: Performed By: #### L 501.5200, L100.0100, L500.2500, L501.9520 ####[facility] [address] [place], [place], [id number] White blood cell (WBC) count Ordered By: Gini Couch on 08-14-2024 WBC (Bld) [#/Vol] 5.4 10*3/uL 4.4-11.0 [facility] Absolute lymphocyte countOrd ered By: Dangelo Botello on 06-20-2024 Lymphocytes Auto (Unsp spec) [#/Vol] 1.11 10*3/uL 0.83-4.51 [facility] Absolute neutrophil countOrd ered By: Dangelo Botello on 06-20-2024 Neutrophils (Bld) [#/Vol] 4.3 10*3/uL 2.0-7.7 [facility] Anion gap in Serum or Plasma Ordered By: Dangelo Botello on 06-20-2024 Anion gap [Moles/Vol] 10 mmol/L 5-15 [facility] Automated lymphocyte count a s percentage of total leukocytesOrdered By: Dangelo Botello on 04-15-2025 Lymphocytes/100 WBC Auto (Unsp spec) 18.8 % Low 19-41 [facility] BUN/creatinine ratioOrdered By: Dangelo Botello on 06-20-2024 Urea nitrogen/Creatinine [Mass ratio] 8.0 mg/mg Low 10-20 [facility] Basophil percentageOrdered B y: Dangelo Botello on 06-20-2024 Basophils/100 WBC (Bld) 0.3 % 0-1 [facility] Bilirubin, totalOrdered By: Dangelo Botello on 06-20-2024 Bilirubin [Mass/Vol] 0.39 mg/dL 0.00-1.30 [facility] CBC W/Diff, Automatedon 06-06-2024 Absolute Lymph 1.11 X10 3/uL Normal 0.83-4.51 [facility] Comment on above: Performed By: #### L 100.0100, L504.2610, L500.4050 #### [facility] [address] [place], [address] Absolute Neut 4.3 X10 3/uL Normal 2.0-7.7 [facility] Comment on above: Performed By: #### L 100.0100, L504.2610, L500.4050 #### [facility] [address] [place], [address] Basophils/100 WBC (Bld) 0.3 % Normal 0-1 [facility] Comment on above: Performed By: #### L 100.0100, L504.2610, L500.4050 #### [facility] [address] [place], [address] Eosinophils/100 WBC (Bld) 0.5 % Normal 0-5 [facility] Comment on above: Performed By: #### L 100.0100, L504.2610, L500.4050 #### [facility] [address] [place], [address] Erythrocyte distribution width (RBC) [Ratio] 17.2 % High 11.6-14.6 [facility] Comment on above: Performed By: #### L 100.0100, L504.2610, L500.4050 #### [facility] [address] [place], [address] Hematocrit (Bld) [Volume fraction] 41.0 % Normal 40-54 [facility] Comment on above: Performed By: #### L 100.0100, L504.2610, L500.4050 #### [facility] [address] [place], [address] Hemoglobin (Bld) [Mass/Vol] 13.8 g/dL Normal 13.0-16.5 [facility] Comment on above: Performed By: #### L 100.0100, L504.2610, L500.4050 #### [facility] [address] [place], [address] IG% 1.400 High 0.0-0.9 [facility] Comment on above: Result Comment: IG% - Immature Granulocytes (promyelocytes, myelocytes and metamyelocytes) > 1% indicates that a LEFT SHIFT is Present. Performed By: #### L 100.0100, L504.2610, L500.4050 #### [facility] [address] [place], [address] Lymphocytes/100 WBC (Bld) 18.8 % Low 19-41 [facility] Comment on above: Performed By: #### L 100.0100, L504.2610, L500.4050 #### [facility] [address] [place], [address] MCH (RBC) [Entitic mass] 33.3 pg High 27.0-32.0 [facility] Comment on above: Performed By: #### L 100.0100, L504.2610, L500.4050 #### [facility] [address] [place], [address] MCHC (RBC) [Mass/Vol] 33.7 g/dL Normal 32-36 [facility] Comment on above: Performed By: #### L 100.0100, L504.2610, L500.4050 #### [facility] [address] [place], [address] MCV (RBC) [Entitic vol] 99.0 fL High 80-94 [facility] Comment on above: Performed By: #### L 100.0100, L504.2610, L500.4050 #### [facility] [address] [place], [address] Monocytes/100 WBC (Bld) 6.9 % Normal 0-10 [facility] Comment on above: Performed By: #### L 100.0100, L504.2610, L500.4050 #### [facility] [address] [place], [address] Neutrophils/100 WBC (Bld) 72.1 % High 47-70 [facility] Comment on above: Performed By: #### L 100.0100, L504.2610, L500.4050 #### [facility] [address] [place], [address] Nucleated RBC (Bld) [#/Vol] 0 10*3/uL Normal 0-5 [facility] Comment on above: Performed By: #### L 100.0100, L504.2610, L500.4050 #### [facility] [address] [place], [address] Platelet mean volume (Bld) [Entitic vol] 10.8 fL Normal 6.2-12.0 [facility] Comment on above: Performed By: #### L 100.0100, L504.2610, L500.4050 #### [facility] [address] [place], [address] Platelets (Bld) [#/Vol] 233 10*3/uL Normal 150-450 [facility] Comment on above: Performed By: #### L 100.0100, L504.2610, L500.4050 #### [facility] [address] [place], [address] RBC (Bld) [#/Vol] 4.14 10*6/uL Low 4.6-6.2 [facility] Comment on above: Performed By: #### L 100.0100, L504.2610, L500.4050 #### [facility] [address] [place], [address] RDW SD 62.4 fl High 35.1-43.9 [facility] Comment on above: Performed By: #### L 100.0100, L504.2610, L500.4050 #### [facility] [address] [place], [address] WBC (Bld) [#/Vol] 5.9 10*3/uL Normal 4.4-11.0 [facility] Comment on above: Performed By: #### L 100.0100, L504.2610, L500.4050 #### [facility] [address] [place], [address] Carbon dioxide, total [Moles /volume] in Central venous bloodOrdered By: Dangelo Botello on 06-20-2024 CO2 [Moles/Vol] 26.0 mmol/L 21.0-32.0 [facility] Chloride assayOrdered By: Raeann Botello on 06-20-2024 Chloride [Moles/Vol] 100 mmol/L 98-108 [facility] Comprehensive Metabolic Prof ilon 06-20-2024 Albumin [Mass/Vol] 4.0 g/dL Normal 3.4-4.8 [facility] Comment on above: Performed By: #### L 100.0100, L504.2610, L500.4050 #### [facility] [address] [place], [address] Albumin/Globulin [Mass ratio] 1.4 {ratio} Normal 0.9-2.4 [facility] Comment on above: Performed By: #### L 100.0100, L504.2610, L500.4050 #### [facility] [address] [place], [address] ALK PHOS 47 U/L Normal 40-129 [facility] Comment on above: Performed By: #### L 100.0100, L504.2610, L500.4050 #### [facility] [address] [place], [address] ALT [Catalytic activity/Vol] 47 U/L Normal <=46 [facility] Comment on above: Performed By: #### L 100.0100, L504.2610, L500.4050 #### [facility] [address] [place], [address] AST [Catalytic activity/Vol] 37 U/L Normal <=37 [facility] Comment on above: Performed By: #### L 100.0100, L504.2610, L500.4050 #### [facility] [address] [place], [address] Bilirubin [Mass/Vol] 0.39 mg/dL Normal 0.00-1.30 [facility] Comment on above: Performed By: #### L 100.0100, L504.2610, L500.4050 #### [facility] [address] [place], [address] BUN/CRE 8.0 RATIO Low 10-20 [facility] Comment on above: Performed By: #### L 100.0100, L504.2610, L500.4050 #### [facility] [address] [place], [address] Calcium [Mass/Vol] 9.7 mg/dL Normal 7.6-11.0 [facility] Comment on above: Performed By: #### L 100.0100, L504.2610, L500.4050 #### [facility] [address] [place], [address] Chloride [Moles/Vol] 100 mmol/L Normal 98-108 [facility] Comment on above: Performed By: #### L 100.0100, L504.2610, L500.4050 #### [facility] [address] [place], [address] CO2 [Moles/Vol] 26.0 mmol/L Normal 21.0-32.0 [facility] Comment on above: Performed By: #### L 100.0100, L504.2610, L500.4050 #### [facility] [address] [place], [address] Creatinine [Mass/Vol] 1.89 mg/dL High 0.70-1.20 [facility] Comment on above: Performed By: #### L 100.0100, L504.2610, L500.4050 #### [facility] [address] [place], [address] GAP 10 Normal 5-15 [facility] Comment on above: Performed By: #### L 100.0100, L504.2610, L500.4050 #### [facility] [address] [place], [address] GFR/1.73 sq M.predicted among non-blacks MDRD (S/P/Bld) [Vol rate/Area] 40 mL/min/{1.73_m2} Low >60 [facility] Comment on above: Result Comment: mL/m in/1.73m2 CKD-EPI Creatinine Equation (2020) Performed By: #### L 100.0100, L504.2610, L500.4050 #### [facility] [address] [place], [address] Globulin (S) [Mass/Vol] 2.8 g/dL Normal 2.2-4.2 [facility] Comment on above: Performed By: #### L 100.0100, L504.2610, L500.4050 #### [facility] [address] [place], [address] Glucose [Mass/Vol] 97 mg/dL Normal 70-99 [facility] Comment on above: Performed By: #### L 100.0100, L504.2610, L500.4050 #### [facility] [address] [place], [address] Potassium [Moles/Vol] 4.5 mmol/L Normal 3.3-5.1 [facility] Comment on above: Performed By: #### L 100.0100, L504.2610, L500.4050 #### [facility] [address] [place], [address] Sodium [Moles/Vol] 136 mmol/L Normal 133-145 [facility] Comment on above: Performed By: #### L 100.0100, L504.2610, L500.4050 #### [facility] [address] [place], [address] T PROT 6.7 g/dL Normal 5.9-8.4 [facility] Comment on above: Performed By: #### L 100.0100, L504.2610, L500.4050 #### [facility] [address] [place], [address] Urea nitrogen [Mass/Vol] 15 mg/dL Normal 4-19 [facility] Comment on above: Performed By: #### L 100.0100, L504.2610, L500.4050 #### [facility] [address] [place], [address] Eosinophil percentageOrdered By: Dangelo Botello on 06-20-2024 Eosinophils/100 WBC (Bld) 0.5 % 0-5 [facility] Erythrocyte distribution wid th (RBC) [Ratio]Ordered By: Dangelo Botello on 06-20-2024 Erythrocyte distribution width (RBC) [Entitic vol] 62.4 fL High 35.1-43.9 [facility] Erythrocyte distribution wid th ratioOrdered By: Dangelo Botello on 06-20-2024 Erythrocyte distribution width (RBC) [Ratio] 17.2 % High 11.6-14.6 [facility] Erythrocyte distribution wid th standard deviationOrdered By: Dangelo Botello on 06-20-2024 Erythrocyte distribution width (RBC) [Ratio] 62.4 fl High 35.1-43.9 [facility] GFR/1.73 sq M.predicted martin g non-blacks MDRD (S/P/Bld) [Vol rate/Area]Ordered By: Dangelo Botello on 06-20-2024 Estimated GFR (MDRD) Non-Af Amer 40 Low >60 [facility] Comment on above: mL/min/1.73m2 CKD-EP I Creatinine Equation (2020) Glomerular filtration rate ( GFR) estimation/1.73 sq m using serum, plasma, or whole bOrdered By: Dangelo Botello on 06-20-2024 GFR/1.73 sq M.predicted among non-blacks MDRD (S/P/Bld) [Vol rate/Area] 40 mL/min/{1.73_m2} Low >60 [facility] Comment on above: mL/min/1.73m2 CKD-EP I Creatinine Equation (2020) Hematocrit Auto (Bld) [Volum e fraction]Ordered By: Dangelo Botello on 06-20-2024 Hematocrit (Bld) [Volume fraction] 41.0 % 40-54 [facility] Hemoglobin measurementOrdere d By: Dangelo Botello on 06-20-2024 Hemoglobin (Bld) [Mass/Vol] 13.8 g/dL 13.0-16.5 [facility] Immature granulocytes/100 WB C Auto (Bld)Ordered By: Dangelo Botello on 06-20-2024 Immature granulocytes/100 WBC (Bld) 1.400 % High 0.0-0.9 [facility] Comment on above: IG% - Immature Granu locytes (promyelocytes, myelocytes and metamyelocytes) > 1% indicates that a LEFT SHIFT is Present. LDHon 06-20-2024 LDH 249 U/L High 87-241 [facility] Comment on above: Order Comment: 1 Performed By: #### L 100.0100, L504.2610, L500.4050 #### [facility] [address] [place], [address] Laboratory - Chemistry and C hemistry - challengeOrdered By: Dangelo Botello on 06-20-2024 AST [Catalytic activity/Vol] 37 U/L <38 [facility] Lactate dehydrogenase (LDH) measurementOrdered By: Dangelo Botello on 06-20-2024 LDH [Catalytic activity/Vol] 249 U/L High 87-241 [facility] Lymphocytes Auto (Unsp spec) [#/Vol]Ordered By: Dangelo Botello on 06-20-2024 Lymphocytes (Bld) [#/Vol] 1.11 10*3/uL 0.83-4.51 [facility] Lymphocytes/100 WBC Auto (Un sp spec)Ordered By: Dangelo Botello on 06-20-2024 Lymphocytes/100 WBC (Bld) 18.8 % Low 19-41 [facility] MCV (mean corpuscular volume ) determinationOrdered By: Dangelo Botello on 06-20-2024 MCV (RBC) [Entitic vol] 99.0 fL High 80-94 [facility] Mean corpuscular hemoglobin (MCH) determinationOrdered By: Dangelo Botello on 06-20-2024 MCH (RBC) [Entitic mass] 33.3 pg High 27.0-32.0 [facility] Mean corpuscular hemoglobin concentration (MCHC) determinationOrdered By: Dangelo Botello on 06-20-2024 MCHC (RBC) [Mass/Vol] 33.7 g/dL 32-36 [facility] Mean platelet volume determi nationOrdered By: Dangelo Botello on 06-20-2024 Platelet mean volume (Bld) [Entitic vol] 10.8 fL 6.2-12.0 [facility] Monocyte percentageOrdered B y: Dangelo Botello on 06-20-2024 Monocytes/100 WBC (Bld) 6.9 % 0-10 [facility] Neutrophil percentageOrdered By: Dangelo Botello on 06-20-2024 Neutrophils/100 WBC (Bld) 72.1 % High 47-70 [facility] Nucleated red blood cell per centageOrdered By: Dangelo Botello on 06-20-2024 Nucleated RBC/100 WBC (Bld) [Ratio] 0 % 0-5 [facility] Oncology Visit Reporton 06-06 Oncology Visit Report [facility] [place] [facility] [address] [place] [address] OFFICE VISIT Date of Service: 06/20/24 1334 MR#: [id number] Acct: [id number] Name: YEFRI YANEZ Rep #: [id number] : 1965 From: Dangelo Botello MD Age/Sex: 59/M Location: [facility] [place] [facility] Status: Signed HPI Subjective Date [...] up after CT. Feeling well [facility] Medical History Abnormal chest x-ray Warfarin-induced coagulopathy [...] Rx spiron (more content not included)... Normal [facility] Platelet countOrdered By: Raeann Botello on 06-20-2024 Platelets (Bld) [#/Vol] 233 10*3/uL 150-450 [facility] Potassium (Unsp spec) [Mass/ Vol]Ordered By: Dangelo Botello on 06-20-2024 Potassium [Moles/Vol] 4.5 mmol/L 3.3-5.1 [facility] Potassium measurement (mass/ volume)Ordered By: Dangelo Botello on 06-20-2024 Potassium (Unsp spec) [Mass/Vol] 4.5 mmol/L 3.3-5.1 [facility] RBC Auto (Bld) [#/Vol]Ordere d By: Dangelo Botello on 06-20-2024 RBC (Bld) [#/Vol] 4.14 10*6/uL Low 4.6-6.2 [facility] Serum creatinine measurement (mass/volume)Ordered By: Dangelo Botello on 06-20-2024 Creatinine [Mass/Vol] 1.89 mg/dL High 0.70-1.20 [facility] Serum globulin measurementOr dered By: Dangelo Botello on 06-20-2024 Globulin (S) [Mass/Vol] 2.8 g/dL 2.2-4.2 [facility] Serum glucose measurement (m ass/volume)Ordered By: Dangelo Botello on 06-20-2024 Glucose [Mass/Vol] 97 mg/dL 70-99 [facility] Serum or plasma alanine stafford otransferase (ALT) measurementOrdered By: Dangelo Botello on 06-20-2024 ALT [Catalytic activity/Vol] 47 U/L <47 [facility] Serum or plasma albumin cory urement (mass/volume)Ordered By: Dangelo Botello on 06-20-2024 Albumin [Mass/Vol] 4.0 g/dL 3.4-4.8 [facility] Serum or plasma albumin/glob ulin mass ratioOrdered By: Dangelo Botello on 06-20-2024 Albumin/Globulin [Mass ratio] 1.4 {ratio} 0.9-2.4 [facility] Serum or plasma alkaline damaso sphatase measurementOrdered By: Dangelo Botello on 06-20-2024 ALP [Catalytic activity/Vol] 47 U/L 40-129 [facility] Serum or plasma calcium cory urement (mass/volume)Ordered By: Dangeol Botello on 06-20-2024 Calcium [Mass/Vol] 9.7 mg/dL 7.6-11.0 [facility] Serum or plasma urea nitroge n measurement (mass/volume)Ordered By: Dangelo Botello on 06-20-2024 Urea nitrogen [Mass/Vol] 15 mg/dL 4-19 [facility] Sodium levelOrdered By: Bruno Botello on 06-20-2024 Sodium [Moles/Vol] 136 mmol/L 133-145 [facility] Total proteinOrdered By: Jose Botello on 06-20-2024 Protein [Mass/Vol] 6.7 g/dL 5.9-8.4 [facility] White blood cell (WBC) count Ordered By: Dangelo Botello on 06-20-2024 WBC (Bld) [#/Vol] 5.9 10*3/uL 4.4-11.0 [facility] CREATININE FINGERSTICKon CREATININE WB < 1.0 Normal 0.70-1.30 [facility] Comment on above: Performed By: #### L 9100.0200 ####[facility] [address] [place], [address] EGFR WB > 60.0000 Normal >60 [facility] Comment on above: Performed By: #### L 9100.0200 ####[facility] [address] [place], [address] CT Chest, Abd, Pel w/Contras ton 06-13-2024 CT Chest, Abd, Pel w/Contrast [facility] Services [address] [place], [place] [id number] CT Chest, Abd, Pel w/Contrast MR#: [id number] Acct: [id number] Name: YEFRI YANEZ Rep #: [id number] : 1965 M 59 From: Carla Garcia MD PCP: Dr. Daksha Turner MD Status: [facility] CL Study: CT Chest, Abd, Pel w/Contrast Date of Exam: Exam# [id number] Ordering Dr: Dangelo Botello MD PROCEDURE: CT [...] cm. *Status post right-sided nephrectomy. Reading Location: [id number] CC: Dr. Daksha Turner MD; Dr. 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 Normal [facility] Creatinine measurement at be dsideOrdered By: Dangelo Botello on 06-13-2024 Bedside Creatinine < 1.0 mg/dL 0.70-1.30 [facility] EGFROrdered By: Dangelo Botello on 06-13-2024 Bedside Estimated GFR (eGFR) > 60.0000 mL/min >60 [facility] GFR/1.73 sq M.predicted among non-blacks MDRD (S/P/Bld) [Vol rate/Area] mL/min/{1.73_m2} >60 [facility] [id number] DOrdered By: Tangela Chiu on 03-22-2024 Vitamin D 25-Hydroxy 30.8 ng/mL [facility] Comment on above: Vitamin D 25(OH) Sta tus Range Deficiency <20 ng/mL (50nmol/L) Insufficiency 20 - 30 ng/mL (50 - 75 nmol/L) Sufficiency 30 - 100 ng/mL (75 - 250 nmol/L) Toxicity >100 ng/mL (>250 nmol/L) Blood urea nitrogen (BUN)/cr eatinine ratioOrdered By: Isidra Chiu on 03-22-2024 Urea nitrogen/Creatinine [Mass ratio] 10.8 mg/mg 10-20 [facility] Carbon dioxide measurementOr dered By: Isidra Chiu on 03-22-2024 CO2 [Moles/Vol] 26.0 mmol/L 21.0-32.0 [facility] Chloride measurementOrdered By: Isidra Chiu on 03-22-2024 Chloride [Moles/Vol] 107 mmol/L 98-107 [facility] Estimated glomerular filtrat ion rate (GFR) AmericanOrdered By: Isidra Chiu on 03-22-2024 Estimated GFR (MDRD) Amer 39 mL/min Low >60 [facility] Comment on above: GFR Calc Glomerular filtration rate ( GFR) estimationOrdered By: Isidra Chiu on 03-22-2024 Estimated GFR (MDRD) Non-Af Amer 32 mL/min Low >60 [facility] Comment on above: Non- GFR Calc Glucose measurementOrdered B y: Isidra Chiu on 03-22-2024 Glucose [Mass/Vol] 118 mg/dL High 74-106 [facility] Comment on above: Fasting Glucose resu lt from 100 to 125 mg/dL suggests IMPAIRED HOMEOSTASIS per A.D.A. criteria. Phosphorus measurementOrdere d By: Isidra Chiu on 03-22-2024 Phosphorus Level 2.6 mg/dL 2.5-4.9 [facility] Potassium measurementOrdered By: Isidra Chiu on 03-22-2024 Potassium [Moles/Vol] 4.3 mmol/L 3.5-5.1 [facility] Renal Profileon 03-22-2024 Albumin [Mass/Vol] 3.1 g/dL Low 3.2-5.0 [facility] Comment on above: Performed By: #### L 100.0100, L504.2610, L500.4050 #### [facility] [address] [place], [address] BUN/CRE 10.8 RATIO Normal 10-20 [facility] Comment on above: Performed By: #### L 100.0100, L504.2610, L500.4050 #### [facility] [address] [place], [address] CA,Total 8.3 mg/dL Low 8.5-10.1 [facility] Comment on above: Performed By: #### L 100.0100, L504.2610, L500.4050 #### [facility] [address] [place], [address] Chloride [Moles/Vol] 107 mmol/L Normal 98-107 [facility] Comment on above: Performed By: #### L 100.0100, L504.2610, L500.4050 #### [facility] [address] [place], [address] CO2 [Moles/Vol] 26.0 mmol/L Normal 21.0-32.0 [facility] Comment on above: Performed By: #### L 100.0100, L504.2610, L500.4050 #### [facility] [address] [place], [address] Creatinine [Mass/Vol] 2.22 mg/dL High 0.70-1.30 [facility] Comment on above: Result Comment: The validity of the calculated GFR GFRAA in patients over 70 years has not been determined. Clinical correlation is essential. Performed By: #### L 100.0100, L504.2610, L500.4050 #### [facility] [address] [place], [address] EST GFR - AA 39 mL/min Low >60 [facility] Comment on above: Result Comment: Afri can Albanian GFR Calc Performed By: #### L 100.0100, L504.2610, L500.4050 #### [facility] [address] [place], [address] GFR/1.73 sq M.predicted among non-blacks MDRD (S/P/Bld) [Vol rate/Area] 32 mL/min/{1.73_m2} Low >60 [facility] Comment on above: Result Comment: Non- GFR Calc Performed By: #### L 100.0100, L504.2610, L500.4050 #### [facility] [address] [place], [address] Glucose [Mass/Vol] 118 mg/dL High 74-106 [facility] Comment on above: Result Comment: Fast ing Glucose result from 100 to 125 mg/dL suggests IMPAIRED HOMEOSTASIS per A.D.A. criteria. Performed By: #### L 100.0100, L504.2610, L500.4050 #### [facility] [address] [place], [address] Phosphate [Mass/Vol] 2.6 mg/dL Normal 2.5-4.9 [facility] Comment on above: Performed By: #### L 100.0100, L504.2610, L500.4050 #### [facility] [address] [place], [address] Potassium [Moles/Vol] 4.3 mmol/L Normal 3.5-5.1 [facility] Comment on above: Performed By: #### L 100.0100, L504.2610, L500.4050 #### [facility] [address] [place], [address] Sodium [Moles/Vol] 138 mmol/L Normal 136-145 [facility] Comment on above: Performed By: #### L 100.0100, L504.2610, L500.4050 #### [facility] [address] [place], [address] Urea nitrogen [Mass/Vol] 24 mg/dL High - [facility] Comment on above: Performed By: #### L 100.0100, L504.2610, L500.4050 #### [facility] [address] [place], [address] Serum or plasma albumin cory urement (mass/volume)Ordered By: Isidra Chiu on 03-22-2024 Albumin [Mass/Vol] 3.1 g/dL Low 3.2-5.0 [facility] Serum or plasma calcium cory urement (mass/volume)Ordered By: Isidra Chiu on 03-22-2024 Calcium [Mass/Vol] 8.3 mg/dL Low 8.5-10.1 [facility] Serum or plasma creatinine m easurement (mass/volume)Ordered By: Isidra Chiu on 03-22-2024 Creatinine [Mass/Vol] 2.22 mg/dL High 0.70-1.30 [facility] Comment on above: The validity of the calculated GFR & GFRAA in patients over 70 years has not been determined. Clinical correlation is essential. Serum or plasma urea nitroge n measurement (mass/volume)Ordered By: Isidra hCiu on 03-22-2024 Urea nitrogen [Mass/Vol] 24 mg/dL High 09-22 [facility] Sodium levelOrdered By: Shawna Chiu on 03-22-2024 Sodium [Moles/Vol] 138 mmol/L 136-145 [facility] Vitamin D,25 Hydroxyon 03-22 Vitamin D 25-OH 30.8 ng/mL Normal [facility] Comment on above: Result Comment: Constanza min D 25(OH) Status Range Deficiency <20 ng/mL (50nmol/L) Insufficiency 20 - 30 ng/mL (50 - 75 nmol/L) Sufficiency 30 - 100 ng/mL (75 - 250 nmol/L) Toxicity >100 ng/mL (>250 nmol/L) Performed By: #### L 100.0100, L504.2610, L500.4050 #### [facility] [address] [place] [place], [address] Lung Screeningon 02-08-[address] Lung Screening [facility] Imaging Services [address] [place] [address] Lung Screening MR#: [id number] Acct: [id number] Name: YEFRI YANEZ Rep #: [id number] : 1965 M 59 From: Rony amador MD PCP: Dr. Daksha Turner MD Status: [facility] CLI Study: Low Dose CT Lung Screening Date of Exam: 02/07 Exam# [id number] Ordering Dr: Daksha Turner [id number] STUDY: LOW DOSE CT LUNG CANCER SCREENING [...] additional features (more content not included)... Normal [facility] Sex Hormone-binding Globulin on 01-13-2024 SHBG 23.8 nmol/L Normal 19.3-76.4 [facility] Comment on above: Order Comment: PER P T-JUST ORDER FROM JOHNNY DATED FOR TODAYOrder Date: 01/11/24Order Info: [id number] - SEXHORM Result Comment: Perf ormed at: CB - [facility] [address] [id number] School Clerk: Elías Moreau PhD, Phone: [phone] Performed By: #### L 100.5373, S459.9234, D269.2062 #### [facility] [address] [facility], [address] Abd Inc Decub and/or Erecton 01-11-2024 Abd Inc Decub and/or Erect [facility] Imaging Services [address] [place], [place] [address] [employer] Decub and/or Erect MR#: [id number] Acct: [id number] Name: YEFRI YANEZ Rep #: [id number] : 1965 M 59 From: Lul Peters MD PCP: Dr. Daksha Turner MD Status: REG CLI Study: Abd Inc Decub and/or Erect Date of Exam: 01/10 Exam# [id number] Ordering Dr: Daksha Turner D [id number] STUDY: X-RAY - ABDOMEN/PELVIS REASON FOR EXAM: [...] EST , CC: Dr. 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 [place], [place], [address] LH 4.5 mIU/mL Normal [facility] Comment on above: Order Comment: CLEAN CATCH Result Comment: NORMAL REFERENCE RANGES FEMALE FOLLICULAR 1.9 - 26.2 mIU/mL MID-CYCLE PEAK 22.8 - 76.1 mIU/mL LUTEAL 0.6 - 16.6 mIU/mL POST-MENOPAUSAL ON MHT 1.1 - 52.4 mIU/mL NOT ON MHT 8.6 - 61.8 mIU/mL MALE 1.2 - 10.6 mIU/mL Performed By: #### L 400.0001 #### [facility] [address] [place], [place], [address] Testosterone, Serum Totalon 01-11-2024 Testosterone [Mass/Vol] 398.15 ng/dL Normal [facility] Comment on above: Order Comment: CLEAN CATCH Result Comment: CENT RAL 90% REFERENCE RANGES MALE AGE <50 197.44 - 669.58 ng/dL MALE AGE > or = 50 187.72 - 684.19 ng/dL FEMALE AGE <50 8.38 - 35.01 ng/dL FEMALE AGE > or = 50 <7.00 - 35.92 ng/dL Effective as of 10/01/20 Performed By: #### L 400.0001 #### [facility] [address] [place], [address] L5000.0012on 12-25-2023 Vitamin B12 Normal [facility] Comment on above: Result Comment: TEST RESULTS LIMITS Vitamin B12 291 pg/mL [phone] TESTING PERFORMED AT [facility]. ORIGINAL REPORT ON FILE IN LAB CONTAINS ADDITIONAL TEST SITE INFORMATION. Performed By: #### L 100.0100, L504.2610, L500.4050 #### [facility] [address] [place], [address] CBC-Complete Blood Cnt No Di ffon 12-22-2023 Erythrocyte distribution width (RBC) [Ratio] 16.7 % High 11.6-14.6 [facility] Comment on above: Order Comment: Order Date: 11/29/23Order Info: [id number] - CBC Performed By: #### L 503.6150, L500.4100, L100.0500, L500.4050, L503.6550 ####[facility] [address] [place], [address] Hematocrit (Bld) [Volume fraction] 43.7 % Normal 40-54 [facility] Comment on above: Order Comment: Order Date: 11/29/23Order Info: [id number] - CBC Performed By: #### L 503.6150, L500.4100, L100.0500, L500.4050, L503.6550 ####[facility] [address] [place], [address] Hemoglobin (Bld) [Mass/Vol] 14.8 g/dL Normal 13.0-16.5 [facility] Comment on above: Order Comment: Order Date: 11/29/23Order Info: [id number] - CBC Performed By: #### L 503.6150, L500.4100, L100.0500, L500.4050, L503.6550 ####[facility] [address] [place], [address] MCH (RBC) [Entitic mass] 34.1 pg High 27.0-32.0 [facility] Comment on above: Order Comment: Order Date: 11/29/23Order Info: [id number] - CBC Performed By: #### L 503.6150, L500.4100, L100.0500, L500.4050, L503.6550 ####[facility] [address] [place], [address] MCHC (RBC) [Mass/Vol] 33.9 g/dL Normal 32-36 [facility] Comment on above: Order Comment: Order Date: 11/29/23Order Info: [id number] - CBC Performed By: #### L 503.6150, L500.4100, L100.0500, L500.4050, L503.6550 ####[facility] [address] [place], [address] MCV (RBC) [Entitic vol] 100.7 fL High 80-94 [facility] Comment on above: Order Comment: Order Date: 11/29/23Order Info: [id number] - CBC Performed By: #### L 503.6150, L500.4100, L100.0500, L500.4050, L503.6550 ####[facility] [address] [place], [address] Platelet mean volume (Bld) [Entitic vol] 11.4 fL Normal 6.2-12.0 [facility] Comment on above: Order Comment: Order Date: 11/29/23Order Info: [id number] - CBC Performed By: #### L 503.6150, L500.4100, L100.0500, L500.4050, L503.6550 ####[facility] [address] [place], [address] Platelets (Bld) [#/Vol] 219 10*3/uL Normal 150-450 [facility] Comment on above: Order Comment: Order Date: 11/29/23Order Info: [id number] - CBC Performed By: #### L 503.6150, L500.4100, L100.0500, L500.4050, L503.6550 ####[facility] [address] [place], [place], [address] RBC (Bld) [#/Vol] 4.34 10*6/uL Low 4.6-6.2 [facility] Comment on above: Order Comment: Order Date: 11/29/23Order Info: [id number] - CBC Performed By: #### L 503.6150, L500.4100, L100.0500, L500.4050, L503.6550 ####[facility] [address] [place], [place], [id number] RDW SD 62.4 fl High 35.1-43.9 [facility] Comment on above: Order Comment: Order Date: 11/29/23Order Info: [id number] - CBC Performed By: #### L 503.6150, L500.4100, L100.0500, L500.4050, L503.6550 ####[facility] [address] [place], [address] WBC (Bld) [#/Vol] 7.6 10*3/uL Normal 4.4-11.0 [facility] Comment on above: Order Comment: Order Date: 11/29/23Order Info: [id number] - CBC Performed By: #### L 503.6150, L500.4100, L100.0500, L500.4050, L503.6550 ####[facility] [address] [place], [place], [address] Comprehensive Metabolic Prof [facility] 12-22-2023 Albumin [Mass/Vol] 3.2 g/dL Normal 3.2-5.0 [facility] Comment on above: Order Comment: Order Date: 11/29/23Order Info: [id number] - CMPOrder Info: [id number] - LIPIDOrder Info: [id number] - FEOrder Info: [id number] - MARTIN Performed By: #### L 503.6150, L500.4100, L100.0500, L500.4050, L503.6550 ####[facility] [address] [place], [address] Albumin/Globulin [Mass ratio] 0.9 {ratio} Normal 0.9-2.4 [facility] Comment on above: Order Comment: Order Date: 11/29/23Order Info: [id number] - CMPOrder Info: [id number] - LIPIDOrder Info: [id number] - FEOrder Info: 4 - MARTIN Performed By: #### L 503.6150, L500.4100, L100.0500, L500.4050, L503.6550 ####[facility] [address] [place], [address] ALK P 64 U/L Normal 45-117 [facility] Comment on above: Order Comment: Order Date: 11/29/23Order Info: [id number] - CMPOrder Info: [id number] - LIPIDOrder Info: [id number] - FEOrder Info: [id number] - MARTIN Performed By: #### L 503.6150, L500.4100, L100.0500, L500.4050, L503.6550 ####[facility] [address] [place], [address] ALT [Catalytic activity/Vol] 48 U/L Normal 16-61 [facility] Comment on above: Order Comment: Order Date: 11/29/23Order Info: 07-1 - CMPOrder Info: [id number] - LIPIDOrder Info: [id number] - FEOrder Info: [id number] - MARTIN Performed By: #### L 503.6150, L500.4100, L100.0500, L500.4050, L503.6550 ####[facility] [address] [place], [address] AST [Catalytic activity/Vol] 37 U/L Normal 15-37 [facility] Comment on above: Order Comment: Order Date: 11/29/23Order Info: [id number] - CMPOrder Info: [id number] - LIPIDOrder Info: [id number] - FEOrder Info: [id number] - MARTIN Performed By: #### L 503.6150, L500.4100, L100.0500, L500.4050, L503.6550 ####[facility] [address] [place], [address] Bilirubin [Mass/Vol] 0.50 mg/dL Normal 0.20-1.00 [facility] Comment on above: Order Comment: Order Date: 11/29/23Order Info: 785- - CMPOrder Info: [id number] - LIPIDOrder Info: [id number] - FEOrder Info: [id number] - MARTIN Result Comment: For patients on eltrombopag therapy, use of Dimension [place] TBIL is not recommended. Performed By: #### L 503.6150, L500.4100, L100.0500, L500.4050, L503.6550 ####[facility] [address] [place], [place], [phone] BUN/CRE 10.2 RATIO Normal 10-20 [facility] Comment on above: Order Comment: Order Date: 11/29/23Order Info: [id number] - CMPOrder Info: - LIPIDOrder Info: [id number] - FEOrder Info: [id number] - MARTIN Performed By: #### L 503.6150, L500.4100, L100.0500, L500.4050, L503.6550 ####[facility] [address] [place], [address] CA,Total 9.0 mg/dL Normal 8.5-10.1 [facility] Comment on above: Order Comment: Order Date: 11/29/23Order Info: [id number] - CMPOrder Info: [id number] - LIPIDOrder Info: [id number] - FEOrder Info: [id number] - MARTIN Performed By: #### L 503.6150, L500.4100, L100.0500, L500.4050, L503.6550 ####[facility] [address] [place], [address] Chloride [Moles/Vol] 106 mmol/L Normal 98-107 [facility] Comment on above: Order Comment: Order Date: 11/29/23Order Info: [id number] - CMPOrder Info: [id number] - LIPIDOrder Info: [id number] - FEOrder Info: [id number] - MARTIN Performed By: #### L 503.6150, L500.4100, L100.0500, L500.4050, L503.6550 ####[facility] [address] [place], [address] CO2 [Moles/Vol] 25.0 mmol/L Normal 21.0-32.0 [facility] Comment on above: Order Comment: Order Date: 11/29/23Order Info: 785- - CMPOrder Info: [id number] - LIPIDOrder Info: [id number] - FEOrder Info: [id number] - MARTIN Performed By: #### L 503.6150, L500.4100, L100.0500, L500.4050, L503.6550 ####[facility] [address] [place], [address] Creatinine [Mass/Vol] 1.86 mg/dL High 0.70-1.30 [facility] Comment on above: Order Comment: Order Date: 11/29/23Order Info: [id number] - CMPOrder Info: [id number] - LIPIDOrder Info: [id number] - FEOrder Info: [id number] - MARTIN Result Comment: The validity of the calculated GFR GFRAA in patients over 70 years has not been determined. Clinical correlation is essential. Performed By: #### L 503.6150, L500.4100, L100.0500, L500.4050, L503.6550 ####[facility] [address] [place], [address] EST GFR - AA 48 mL/min Low >60 [facility] Comment on above: Order Comment: Order Date: 11/29/23Order Info: 07-1 - CMPOrder Info: [id number] - LIPIDOrder Info: [id number] - FEOrder Info: [id number] - MARTIN Result Comment: Afri can Albanian GFR Calc Performed By: #### L 503.6150, L500.4100, L100.0500, L500.4050, L503.6550 ####[facility] [address] [place], [address] GAP 7 Normal 5-15 [facility] Comment on above: Order Comment: Order Date: 11/29/23Order Info: [id number] - CMPOrder Info: - LIPIDOrder Info: [id number] - FEOrder Info: [id number] - MARTIN Performed By: #### L 503.6150, L500.4100, L100.0500, L500.4050, L503.6550 ####[facility] [address] [place], [address] GFR/1.73 sq M.predicted among non-blacks MDRD (S/P/Bld) [Vol rate/Area] 40 mL/min/{1.73_m2} Low >60 [facility] Comment on above: Order Comment: Order Date: 11/29/23Order Info: [id number] - CMPOrder Info: [id number] - LIPIDOrder Info: [id number] - FEOrder Info: [id number] - MARTIN Result Comment: Non- GFR Calc Performed By: #### L 503.6150, L500.4100, L100.0500, L500.4050, L503.6550 ####[facility] [address] [place], [address] Globulin (S) [Mass/Vol] 3.4 g/dL Normal 2.2-4.2 [facility] Comment on above: Order Comment: Order Date: 11/29/23Order Info: 07- - CMPOrder Info: [id number] - LIPIDOrder Info: [id number] - FEOrder Info: [id number] - MARTIN Performed By: #### L 503.6150, L500.4100, L100.0500, L500.4050, L503.6550 ####[facility] [address] [place], [address] Glucose [Mass/Vol] 115 mg/dL High 74-106 [facility] Comment on above: Order Comment: Order Date: 11/29/23Order Info: 86-1 - CMPOrder Info: [id number] - LIPIDOrder Info: [id number] - FEOrder Info: [id number] - MARTIN Result Comment: Fast ing Glucose result from 100 to 125 mg/dL suggests IMPAIRED HOMEOSTASIS per A.D.A. criteria. Performed By: #### L 503.6150, L500.4100, L100.0500, L500.4050, L503.6550 ####[facility] [address] [place], [address] Potassium [Moles/Vol] 4.3 mmol/L Normal 3.5-5.1 [facility] Comment on above: Order Comment: Order Date: 11/29/23Order Info: [id number] - CMPOrder Info: - LIPIDOrder Info: [id number] - FEOrder Info: [id number] - MARTIN Performed By: #### L 503.6150, L500.4100, L100.0500, L500.4050, L503.6550 ####[facility] [address] [place], [address] Sodium [Moles/Vol] 138 mmol/L Normal 136-145 [facility] Comment on above: Order Comment: Order Date: 11/29/23Order Info: 785-1 - CMPOrder Info: [id number] - LIPIDOrder Info: [id number] - FEOrder Info: [id number] - MARTIN Performed By: #### L 503.6150, L500.4100, L100.0500, L500.4050, L503.6550 ####[facility] [address] [place], [place], [address] T PROT 6.6 g/dL Normal 6.4-8.2 [facility] Comment on above: Order Comment: Order Date: 11/29/23Order Info: 785-1 - CMPOrder Info: [id number] - LIPIDOrder Info: [id number] - FEOrder Info: [id number] - MARTIN Performed By: #### L 503.6150, L500.4100, L100.0500, L500.4050, L503.6550 ####[facility] [address] [place], [address] Urea nitrogen [Mass/Vol] 19 mg/dL High 7-18 [facility] Comment on above: Order Comment: Order Date: 11/29/23Order Info: 785- - CMPOrder Info: [id number] - LIPIDOrder Info: [id number] - FEOrder Info: [id number] - MARTIN Performed By: #### L 503.6150, L500.4100, L100.0500, L500.4050, L503.6550 ####[facility] [address] [place], [address] Ferritinon 12-22-2023 Ferritin [Mass/Vol] 452 ng/mL High 26-388 [facility] Comment on above: Order Comment: Order Date: 11/29/23Order Info: 785-03 - CMPOrder Info: [id number] - LIPIDOrder Info: [id number] - FEOrder Info: [id number] - MARTIN Performed By: #### L 503.6150, L500.4100, L100.0500, L500.4050, L503.6550 ####[facility] [address] [place], [address] Ironon 12-22-2023 Iron [Mass/Vol] 92 ug/dL Normal 65-175 [facility] Comment on above: Order Comment: Order Date: 11/29/23Order Info: 785- - CMPOrder Info: [id number] - LIPIDOrder Info: [id number] - FEOrder Info: [id number] - MARTIN Performed By: #### L 503.6150, L500.4100, L100.0500, L500.4050, L503.6550 ####[facility] [address] [place], [address] Lipid Profileon 12-22-2023 Cholesterol [Mass/Vol] 112 mg/dL Normal 200 [facility] Comment on above: Order Comment: Order Date: 11/29/23Order Info: 86-1 - CMPOrder Info: [id number] - LIPIDOrder Info: [id number] - FEOrder Info: [id number] - MARTIN Result Comment: <200 mg/dL Desirable 200-240 mg/dL Borderline >240 mg/dL High Risk Performed By: #### L 503.6150, L500.4100, L100.0500, L500.4050, L503.6550 ####[facility] [address] [place], [address] Cholesterol in HDL [Mass/Vol] 44 mg/dL Normal [facility] Comment on above: Order Comment: Order Date: 11/29/23Order Info: 785- - CMPOrder Info: [id number] - LIPIDOrder Info: [id number] - FEOrder Info: [id number] - MARTIN Result Comment: The drugs N-Acetylcysteine and Metamizole may falsely depress this assay. Reference Range HDL <40 mg/dL Low HDL Cholesterol HDL >or= 60 mg/dL High HDL Cholesterol Performed By: #### L 503.6150, L500.4100, L100.0500, L500.4050, L503.6550 ####[facility] [address] [place], [address] Cholesterol in LDL [Mass/Vol] 47 mg/dL Normal 0-130 [facility] Comment on above: Order Comment: Order Date: 11/29/23Order Info: [id number] - CMPOrder Info: [id number] - LIPIDOrder Info: [id number] - FEOrder Info: [id number] - MARTIN Performed By: #### L 503.6150, L500.4100, L100.0500, L500.4050, L503.6550 ####[facility] [address] [place], [address] Cholesterol in VLDL [Mass/Vol] 21 mg/dL Normal 5-40 [facility] Comment on above: Order Comment: Order Date: 11/29/23Order Info: [id number] - CMPOrder Info: [id number] - LIPIDOrder Info: [id number] - FEOrder Info: [id number] - MARTIN Performed By: #### L 503.6150, L500.4100, L100.0500, L500.4050, L503.6550 ####[facility] [address] [place], [address] Triglyceride [Mass/Vol] 104 mg/dL Normal [facility] Comment on above: Order Comment: Order Date: 11/29/23Order Info: [id number] - CMPOrder Info: [id number] - LIPIDOrder Info: [id number] - FEOrder Info: [id number] - MARTIN Result Comment: The drugs N-Acetylcysteine and Metamizole may falsely depress this assay. Serum Triglycerides Reference Interval Normal <150 mg/dL Borderline high 150 - 199 mg/dL High 200 - 499 mg/dL Very High > or = 500 mg/dL Performed By: #### L 503.6150, L500.4100, L100.0500, L500.4050, L503.6550 ####[facility] [address] [place], [address] Oncology Visit Reporton 12-06 Oncology Visit Report [facility] [address] [place] [address] OFFICE VISIT Date of Service: 12/22/23 1331 MR#: [id number] Acct: [id number] Name: YEFRI YANEZ Rep #: [id number] : 1965 From: Dangelo Botello MD Age/Sex: 58/M Location: [facility] Status: Signed HPI Subjective Date of Service [...] up after CT. Feeling well [facility] Medical History Abnormal chest x-ray Warfarin-induced coagulopathy [...] 12.5 mg (more content not included)... Normal [facility] Basophil percentageOrdered B y: Joes Ramon Turner on 05-27-2023 Bilirubin [Mass/Vol] 0.60 mg/dL 0.20-1.00 [facility] Comment on above: For patients on eltr ombopag therapy, use of Dimension [place] TBIL is not recommended. Chloride [Moles/Vol] 106 mmol/L 98-107 [facility] Glucose [Mass/Vol] 106 mg/dL 74-106 [facility] Comment on above: Fasting Glucose resu lt from 100 to 125 mg/dL suggests IMPAIRED HOMEOSTASIS per A.D.A. criteria. Potassium [Moles/Vol] 3.8 mmol/L 3.5-5.1 [facility] Comment on above: Slight Hemolysis, Re sult may be falsely increased. Protein [Mass/Vol] 6.7 g/dL 6.4-8.2 [facility] Sodium [Moles/Vol] 138 mmol/L 136-145 [facility] Testosterone [Mass/Vol] 173.63 ng/dL [facility] Comment on above: CENTRAL 90% REFERENC [...] Iron (Unsp spec) [Mass/Mass] 115 ug/dL 65-175 [facility] Comment on above: Slight Hemolysis, Re sult may be falsely increased. Laboratory - Chemistry and C hemistry - challengeOrdered By: Jose Ramon Turner on 05-27-2023 Albumin/Globulin [Mass ratio] 0.9 {ratio} 0.9-2.4 [facility] ALP [Catalytic activity/Vol] 73 U/L 45-117 [facility] ALT [Catalytic activity/Vol] 54 U/L 16-61 [facility] CO2 [Moles/Vol] 24.0 mmol/L 21.0-32.0 [facility] Cobalamin (Vitamin B12) [Mass/Vol] 241 pg/mL 211-911 [facility] Ferritin [Mass/Vol] 515 ng/mL 26-388 [facility] Globulin (S) [Mass/Vol] 3.6 g/dL 2.2-4.2 [facility] Urea nitrogen/Creatinine [Mass ratio] 10.7 mg/mg 10-20 [facility] No Panel InformationOrdered By: Jose Ramon Turner on 05-27-2023 Estimated GFR (MDRD) Amer 54 mL/min >60 [facility] Comment on above: GFR Calc Estimated GFR (MDRD) Non-Af Amer 44 mL/min >60 [facility] Comment on above: Non- GFR Calc Serum or plasma calcium cory urement (mass/volume)Ordered By: Jose Ramon Turner on 05-27-2023 Calcium [Mass/Vol] 8.8 mg/dL 8.5-10.1 [facility] Serum or plasma creatinine m easurement (mass/volume)Ordered By: Jose Ramon Turner on 05-27-2023 Creatinine [Mass/Vol] 1.69 mg/dL 0.70-1.30 [facility] Comment on above: The validity of the calculated GFR & GFRAA in patients over 70 years has not been determined. Clinical correlation is essential. Serum or plasma thyroid stim ulating hormone (TSH) measurement (units/volume)Ordered By: Jose Ramon Turner on 05-27-2023 TSH Qn 3.25 uIU/mL 0.358-3.74 [facility] Serum or plasma urea nitroge n measurement (mass/volume)Ordered By: Jose Ramon Turner on 05-27-2023 Urea nitrogen [Mass/Vol] 18 mg/dL 7-18 [facility] Thin prep Papanicolaou smear with manual screeningOrdered By: Jose Ramon Turner on 05-27-2023 Thin prep Papanicolaou smear with manual screening 3.1 g/dL 3.2-5.0 [facility] Thin prep Papanicolaou smear with manual screening 40 U/L 15 [facility] Comment on above: Slight Hemolysis, Re sult may be falsely increased. Thin prep Papanicolaou smear with manual screening 8 5-15 [facility] Clostridioides difficile nuc leic acid assay by PCROrdered By: Jose Ramon Turner on 05-21-2023 C. difficile DNA SANDOVAL+probe Ql (Unsp spec) [facility] Lower GI hemoglobin IA Ql (S tl)Ordered By: Jose Ramon Turner on 05-21-2023 Stool Occult Blood (STEVENSON) Positive [facility] Ova and parasitesOrdered By: Jose Ramon Turner on 05-21-2023 Ova and parasites identified LM Nom (Unsp spec) [facility] Stool enteric pathogen panel by probe and target amplification methodOrdered By: Jose Ramon Turner on 05-21-2023 Gastrointestinal pathogens panel SANDOVAL+probe (Stl) [facility] Stool pancreatic elastase me asurement (mass/mass)Ordered By: Jose Ramon Turner on 05-21-2023 Elastase.pancreatic (Stl) [Mass/Mass] See comment [facility] Comment on above: TEST RESULTS LIMITSP ancreatic Elastase, Fecal 218 ug Elast./g >200 Severe Pancreatic Insufficiency: <100 Moderate Pancreatic Insufficiency: 100 - 200 Normal: >200 TESTING PERFORMED AT [facility]. ORIGINAL REPORT ON FILE IN LAB CONTAINS ADDITIONAL TEST SITE INFORMATION. Basophil percentageOrdered B y: Jose Ramon Turner on 05-20-2023 Basophil percentage 2.0 mg/dL 2.5-4.9 [facility] Chloride [Moles/Vol] 104 mmol/L 98-107 [facility] Glucose [Mass/Vol] 113 mg/dL 74-106 [facility] Comment on above: Fasting Glucose resu lt from 100 to 125 mg/dL suggests IMPAIRED HOMEOSTASIS per A.D.A. criteria. Potassium [Moles/Vol] 3.8 mmol/L 3.5-5.1 [facility] Sodium [Moles/Vol] 137 mmol/L 136-145 [facility] Laboratory - Chemistry and C hemistry - challengeOrdered By: Jose Ramon Turner on 05-20-2023 CO2 [Moles/Vol] 24.0 mmol/L 21.0-32.0 [facility] Urea nitrogen/Creatinine [Mass ratio] 11.1 mg/mg 10-20 [facility] No Panel InformationOrdered By: Jose Ramon Turner on 05-20-2023 Estimated GFR (MDRD) Amer 47 mL/min >60 [facility] Comment on above: GFR Calc Estimated GFR (MDRD) Non-Af Amer 39 mL/min >60 [facility] Comment on above: Non- GFR Calc Serum or plasma calcium cory urement (mass/volume)Ordered By: Jose Ramon Turner on 05-20-2023 Calcium [Mass/Vol] 8.6 mg/dL 8.5-10.1 [facility] Serum or plasma creatinine m easurement (mass/volume)Ordered By: Jose Ramon Turner on 05-20-2023 Creatinine [Mass/Vol] 1.89 mg/dL 0.70-1.30 [facility] Comment on above: The validity of the calculated GFR & GFRAA in patients over 70 years has not been determined. Clinical correlation is essential. Serum or plasma urea nitroge n measurement (mass/volume)Ordered By: Jose Ramon Turner on 05-20-2023 Urea nitrogen [Mass/Vol] 21 mg/dL 7-18 [facility] Thin prep Papanicolaou smear with manual screeningOrdered By: Jose Ramon Turner on 05-20-2023 Thin prep Papanicolaou smear with manual screening 3.2 g/dL 3.2-5.0 [facility] Absolute lymphocyte countOrd ered By: Dangelo Botello on 04-12-2023 Lymphocytes Auto (Unsp spec) [#/Vol] 1.08 10*3/uL 0.83-4.51 [facility] Automated lymphocyte count a s percentage of total leukocytesOrdered By: Dangelo Paganguillermo on 04-12-2023 Lymphocytes/100 WBC Auto (Unsp spec) 18.6 % 19-41 [facility] Basophil percentageOrdered B y: Dangelo Botello on 04-12-2023 Basophils/100 WBC (Bld) 0.3 % 0-1 [facility] Bilirubin [Mass/Vol] 0.50 mg/dL 0.20-1.00 [facility] Comment on above: For patients on eltr ombopag therapy, use of Dimension [place] TBIL is not recommended. Chloride [Moles/Vol] 106 mmol/L 98-107 [facility] Eosinophils/100 WBC (Bld) 0.5 % 0-5 [facility] Glucose [Mass/Vol] 121 mg/dL 74-106 [facility] Comment on above: Fasting Glucose resu lt from 100 to 125 mg/dL suggests IMPAIRED HOMEOSTASIS per A.D.A. criteria. Hemoglobin (Bld) [Mass/Vol] 13.9 g/dL 13.0-16.5 [facility] LDH [Catalytic activity/Vol] 391 U/L 87-241 [facility] Comment on above: Slight Hemolysis, Re sult may be falsely increased. Monocytes/100 WBC (Bld) 6.4 % 0-10 [facility] Neutrophils (Bld) [#/Vol] 4.3 10*3/uL 2.0-7.7 [facility] Neutrophils/100 WBC (Bld) 74.0 % 47-70 [facility] Potassium [Moles/Vol] 3.6 mmol/L 3.5-5.1 [facility] Comment on above: Slight Hemolysis, Re sult may be falsely increased. Protein [Mass/Vol] 7.2 g/dL 6.4-8.2 [facility] Sodium [Moles/Vol] 141 mmol/L 136-145 [facility] WBC (Bld) [#/Vol] 5.8 10*3/uL 4.4-11.0 [facility] Blood manual differential co mment interpretation (narrative result)Ordered By: Dangelo Botello on 04-12-2023 Manual differential comment Piyush (Bld) [Interp] SCANNED [facility] Comment on above: 1+ ANISOCYTOSIS Determination of erythrocyte mean corpuscular volume (MCV)Ordered By: Dangelo Botello on 04-12-2023 MCV (RBC) [Entitic vol] 100.7 fL 80-94 [facility] Erythrocyte distribution wid th ratioOrdered By: Dangelo Botello on 04-12-2023 Erythrocyte distribution width (RBC) [Ratio] 17.9 % 11.6-14.6 [facility] Erythrocyte distribution wid th standard deviationOrdered By: Dangelo Botello on 04-12-2023 Erythrocyte distribution width (RBC) [Entitic vol] 66.3 fL 35.1-43.9 [facility] Hematocrit Auto (Bld) [Volum e fraction]Ordered By: Dangelo Botello on 04-12-2023 Hematocrit (Bld) [Volume fraction] 41.9 % 40-54 [facility] Immature granulocytes/100 WB C Auto (Bld)Ordered By: Dangelo Botello on 04-12-2023 Immature granulocytes/100 WBC (Bld) 0.200 % 0.0-0.9 [facility] Comment on above: IG% - Immature Granu locytes (promyelocytes, myelocytes and metamyelocytes) > 1% indicates that a LEFT SHIFT is Present. Laboratory - Chemistry and C hemistry - challengeOrdered By: Dangelo Botello on 04-12-2023 Albumin/Globulin [Mass ratio] 0.8 {ratio} 0.9-2.4 [facility] ALP [Catalytic activity/Vol] 61 U/L 45-117 [facility] ALT [Catalytic activity/Vol] 47 U/L 16-61 [facility] CO2 [Moles/Vol] 28.0 mmol/L 21.0-32.0 [facility] Globulin (S) [Mass/Vol] 3.9 g/dL 2.2-4.2 [facility] Urea nitrogen/Creatinine [Mass ratio] 10.8 mg/mg 10-20 [facility] Laboratory - Hematology and Cell countsOrdered By: Dangelo Botello on 04-12-2023 MCH (RBC) [Entitic mass] 33.4 pg 27.0-32.0 [facility] MCHC (RBC) [Mass/Vol] 33.2 g/dL 32-36 [facility] Nucleated RBC/100 WBC (Bld) [Ratio] 0.3 % 0-5 [facility] Platelets (Bld) [#/Vol] 275 10*3/uL 150-450 [facility] No Panel InformationOrdered By: Dangelo Botello on 04-12-2023 Estimated Creatinine Clearance Calc 57.07 ml/min [facility] Estimated GFR (MDRD) Amer 48 mL/min >60 [facility] Comment on above: GFR Calc Estimated GFR (MDRD) Non-Af Amer 40 mL/min >60 [facility] Comment on above: Non- GFR Calc Platelet mean volume Kevin-Ec ker (Bld) [Entitic vol]Ordered By: Dangelo Botello on 04-12-2023 Platelet mean volume (Bld) [Entitic vol] 10.4 fL 6.2-12.0 [facility] RBC Auto (Bld) [#/Vol]Ordere d By: Dangelo Botello on 04-12-2023 RBC (Bld) [#/Vol] 4.16 10*6/uL 4.6-6.2 [facility] Serum or plasma calcium cory urement (mass/volume)Ordered By: Dangelo Botello on 04-12-2023 Calcium [Mass/Vol] 8.8 mg/dL 8.5-10.1 [facility] Serum or plasma creatinine m easurement (mass/volume)Ordered By: Dangelo Botello on 04-12-2023 Creatinine [Mass/Vol] 1.86 mg/dL 0.70-1.30 [facility] Comment on above: The validity of the calculated GFR & GFRAA in patients over 70 years has not been determined. Clinical correlation is essential. Serum or plasma urea nitroge n measurement (mass/volume)Ordered By: Dangelo Botello on 04-12-2023 Urea nitrogen [Mass/Vol] 20 mg/dL 7-18 [facility] Thin prep Papanicolaou smear with manual screeningOrdered By: Dangelo Botello on 04-12-2023 Thin prep Papanicolaou smear with manual screening 3.3 g/dL 3.2-5.0 [facility] Thin prep Papanicolaou smear with manual screening 34 U/L 15-37 [facility] Comment on above: Slight Hemolysis, Re sult may be falsely increased. Thin prep Papanicolaou smear with manual screening 7 -15 [facility] Basophil percentageOrdered B y: Isidra Chiu on 02-12-2023 Basophil percentage 0-5 SEEN /hpf 0-5 [facility] Bilirubin Test strip Ql (U)O rdered By: Isidra Chiu on 02-12-2023 Bilirubin Ql (U) Negative Negative [facility] Ketones Test strip Ql (U)Ord ered By: Isidra Chiu on 02-12-2023 Ketones Ql (U) Negative Negative [facility] Mucus LM Ql (Urine sed)Order ed By: Isidra Chiu on 02-12-2023 Mucus Ql (Urine sed) 0 SEEN /hpf [facility] Nitrite Test strip Ql (U)Ord ered By: Isidra Chiu on 02-12-2023 Nitrite Ql (U) Negative Negative [facility] Protein Test strip Ql (U)Ord ered By: Isidra Chiu on 02-12-2023 Protein Ql (U) 15 mg/dl Negative [facility] Squamous epithelial cells de tection in urine sediment by light microscopyOrdered By: Isidra Chiu on 02-12-2023 Epithelial cells.squamous LM Ql (Urine sed) 0 SEEN /hpf 0-5 [facility] Urine blood detectionOrdered By: Isidra Chiu on 02-12-2023 RBC Ql (U) Negative Negative [facility] RBC Ql (U) 0 SEEN /hpf 0-5 [facility] Urine clarityOrdered By: Bruce Chiu on 02-12-2023 Clarity (U) Clear Clear [facility] Urine color determinationOrd ered By: Isidra Chiu on 02-12-2023 Color (U) Yellow Yellow [facility] Urine creatinine measurement (mass/volume)Ordered By: Isidra Chiu on 02-12-2023 Creatinine (U) [Mass/Vol] 194.00 mg/dL NO RANGE EST. [facility] Urine glucose detectionOrder ed By: Isidra Chui on 02-12-2023 Glucose Ql (U) Normal mg/dl Normal [facility] Urine leukocyte esterase det ection by dipstickOrdered By: Isidra Chiu on 02-12-2023 Leukocyte esterase Test strip Ql (U) 25 /ul Negative [facility] Urine pHOrdered By: Lynette Chiu on 02-12-2023 pH (U) 5.0 [pH] 5.0 - 8.0 [facility] Urine protein measurement (m ass/volume)Ordered By: Isidra Chiu on 02-12-2023 Protein (U) [Mass/Vol] 20.7 mg/dL 0.0-11.8 [facility] Urine protein/creatinine mas s ratioOrdered By: Iisdra Chiu on 02-12-2023 Protein/Creatinine (U) [Mass ratio] 107 mg/g CRE 0-200 [facility] Urine sediment bacteria coun t by microscopy (number/high power field)Ordered By: Isidra Chiu on 02-12-2023 Bacteria LM.HPF (Urine sed) [#/Area] 0 /[HPF] None Seen [facility] Urine specific gravity measu rementOrdered By: Isidra Chiu on 02-12-2023 Specific gravity (U) [Rel density] 1.020 1.002-1.03 0 [facility] Urobilinogen Auto test strip Ql (U)Ordered By: Isidra Chiu on 02-12-2023 Urobilinogen Ql (U) Normal mg/dl Normal [facility] Absolute lymphocyte countOrd ered By: Carol Chiu on 12-17-2022 Lymphocytes Auto (Unsp spec) [#/Vol] 0.88 10*3/uL 0.83-4.51 [facility] Basophil percentageOrdered B y: Carol Chiu on 12-17-2022 Basophils/100 WBC (Bld) 0.4 % 0-1 [facility] Chloride [Moles/Vol] 107 mmol/L 98-107 [facility] Eosinophils/100 WBC (Bld) 1.0 % 0-5 [facility] Glucose [Mass/Vol] 110 mg/dL 74-106 [facility] Comment on above: Fasting Glucose resu lt from 100 to 125 mg/dL suggests IMPAIRED HOMEOSTASIS per A.D.A. criteria. Neutrophils (Bld) [#/Vol] 3.7 10*3/uL 2.0-7.7 [facility] Neutrophils/100 WBC (Bld) 71.5 % 47-70 [facility] Potassium [Moles/Vol] 3.5 mmol/L 3.5-5.1 [facility] Sodium [Moles/Vol] 138 mmol/L 136-145 [facility] WBC (Bld) [#/Vol] 5.2 10*3/uL 4.4-11.0 [facility] Blood erythrocytes count (nu mber/volume)Ordered By: Carol Chiu on 12-17-2022 RBC (Bld) [#/Vol] 4.04 10*6/uL 4.6-6.2 [facility] Blood hemoglobin measurement (mass/volume)Ordered By: Carol Chiu on 12-17-2022 Hemoglobin (Bld) [Mass/Vol] 13.9 g/dL 13.0-16.5 [facility] Blood lymphocytes/100 leukoc ytesOrdered By: Carol Chiu on 12-17-2022 Lymphocytes/100 WBC (Bld) 16.9 % 19-41 [facility] Blood monocytes/100 leukocyt esOrdered By: Carol Chiu on 12-17-2022 Monocytes/100 WBC (Bld) 9.8 % 0-10 [facility] Blood platelet mean volumeOr dered By: Carol Chiu on 12-17-2022 Platelet mean volume (Bld) [Entitic vol] 11.2 fL 6.2-12.0 [facility] Determination of erythrocyte mean corpuscular volume (MCV)Ordered By: Carol Chiu on 12-17-2022 MCV (RBC) [Entitic vol] 102.0 fL 80-94 [facility] Hematocrit Auto (Bld) [Volum e fraction]Ordered By: Carol Chiu on 12-17-2022 Hematocrit (Bld) [Volume fraction] 41.2 % 40-54 [facility] INR in Blood by Coagulation assayOrdered By: Marquise Padilla on 12-17-2022 INR Coag (Bld) [Relative time] 2.2 {INR} [facility] Laboratory - Chemistry and C hemistry - challengeOrdered By: Carol Chiu on 12-17-2022 CO2 [Moles/Vol] 26.0 mmol/L 21.0-32.0 [facility] Urea nitrogen/Creatinine [Mass ratio] 11.5 mg/mg 10-20 [facility] Laboratory - CoagulationOrde red By: Marquise Padilla on 12-17-2022 PT Coag (PPP) [Time] 24.6 s 11.7-14.9 [facility] Laboratory - Hematology and Cell countsOrdered By: Carol Chiu on 12-17-2022 Erythrocyte distribution width (RBC) [Entitic vol] 63.6 fL 35.1-43.9 [facility] Erythrocyte distribution width (RBC) [Ratio] 16.9 % 11.6-14.6 [facility] Immature granulocytes/100 WBC (Bld) 0.400 % 0.0-0.9 [facility] Comment on above: IG% - Immature Granu locytes (promyelocytes, myelocytes and metamyelocytes) > 1% indicates that a LEFT SHIFT is Present. MCH (RBC) [Entitic mass] 34.4 pg 27.0-32.0 [facility] Nucleated RBC/100 WBC (Bld) [Ratio] 0.8 % 0-5 [facility] MCHC Auto (RBC) [Mass/Vol]Or dered By: Carol Chiu on 12-17-2022 MCHC (RBC) [Mass/Vol] 33.7 g/dL 32-36 [facility] No Panel InformationOrdered By: Carol Chiu on 12-17-2022 Estimated Creatinine Clearance Calc 51.97 ml/min [facility] Estimated GFR (MDRD) Amer 55 mL/min >60 [facility] Comment on above: GFR Calc Estimated GFR (MDRD) Non-Af Amer 46 mL/min >60 [facility] Comment on above: Non- GFR Calc Platelets bldOrdered By: Lina Chiu on 12-17-2022 Platelets (Bld) [#/Vol] 193 10*3/uL 150-450 [facility] Serum or plasma calcium cory urement (mass/volume)Ordered By: Carol Chiu on 12-17-2022 Calcium [Mass/Vol] 9.3 mg/dL 8.5-10.1 [facility] Serum or plasma creatinine m easurement (mass/volume)Ordered By: Carol Chiu on 12-17-2022 Creatinine [Mass/Vol] 1.65 mg/dL 0.70-1.30 [facility] Comment on above: The validity of the calculated GFR & GFRAA in patients over 70 years has not been determined. Clinical correlation is essential. Serum or plasma urea nitroge n measurement (mass/volume)Ordered By: Carol Chiu on 12-17-2022 Urea nitrogen [Mass/Vol] 19 mg/dL 7-18 [facility] Thin prep Papanicolaou smear with manual screeningOrdered By: Carol Chiu on 12-17-2022 Thin prep Papanicolaou smear with manual screening 5 5-15 [facility] Blood manual differential co mment interpretation (narrative result)Ordered By: Marquise Padilla on 12-16-2022 Manual differential comment Ipyush (Bld) [Interp] SCANNED [facility] Laboratory - Hematology and Cell countsOrdered By: Marquise Padilla on 12-16-2022 Anisocytosis Ql (Bld) 2+ [facility] Macrocytes detectionOrdered By: Marquise Padilla on 12-16-2022 Macrocytes Ql (Bld) 2+ [facility] Laboratory - Chemistry and C hemistry - challengeOrdered By: Speedy Bass on 12-15-2022 Natriuretic peptide B (Bld) [Mass/Vol] 574.1 pg/mL 0-100 [facility] No Panel InformationOrdered By: Marquise Padilla on 12-15-2022 Streptococcus pneumoniae Antigen (M [facility] Streptococcus pneumoniae Antigen (M [facility] No Panel InformationOrdered By: Speedy Bass on 12-15-2022 Troponin I High Sensitivity 40 pg/mL 3.0-78.0 [facility] Comment on above: Please Note: New [place] t Units and Gender Specific Reference Ranges. For more information see Policy Stat Procedure [place] High Sensitivity Troponin (TNIH) and attachments. Urine Legionella pneumophila antigen detectionOrdered By: Marquise Padilla on 12-15-2022 L. pneumophila Ag Ql (U) [facility] L. pneumophila Ag Ql (U) [facility] Basophil percentageOrdered B y: Jose Ramon Turner on 11-12-2022 Chloride [Moles/Vol] 106 mmol/L 98-107 [facility] Glucose [Mass/Vol] 89 mg/dL 74-106 [facility] Potassium [Moles/Vol] 3.9 mmol/L 3.5-5.1 [facility] Comment on above: Slight Hemolysis, Re sult may be falsely increased. Sodium [Moles/Vol] 138 mmol/L 136-145 [facility] WBC (Bld) [#/Vol] 5.4 10*3/uL 4.4-11.0 [facility] Blood erythrocytes count (nu mber/volume)Ordered By: Jose Ramon Turner on 11-12-2022 RBC (Bld) [#/Vol] 4.08 10*6/uL 4.6-6.2 [facility] Blood hemoglobin measurement (mass/volume)Ordered By: Jose Ramon Turner on 11-12-2022 Hemoglobin (Bld) [Mass/Vol] 14.2 g/dL 13.0-16.5 [facility] Blood manual differential co mment interpretation (narrative result)Ordered By: Jose Ramon Turner on 11-12-2022 Manual differential comment Piyush (Bld) [Interp] SCANNED [facility] Comment on above: 2+ ANISOCYTOSIS2+ MA CROCYTOSIS Blood platelet mean volumeOr dered By: Jose Ramon Turner on 11-12-2022 Platelet mean volume (Bld) [Entitic vol] 10.9 fL 6.2-12.0 [facility] Determination of erythrocyte mean corpuscular volume (MCV)Ordered By: Jose Ramon Turner on 11-12-2022 MCV (RBC) [Entitic vol] 105.1 fL 80-94 [facility] Hematocrit Auto (Bld) [Volum e fraction]Ordered By: Jose Ramon Turner on 11-12-2022 Hematocrit (Bld) [Volume fraction] 42.9 % 40-54 [facility] Laboratory - Chemistry and C hemistry - challengeOrdered By: Jose Ramon Turner on 11-12-2022 Natriuretic peptide B (Bld) [Mass/Vol] 255.5 pg/mL 0-100 [facility] CO2 [Moles/Vol] 27.0 mmol/L 21.0-32.0 [facility] Urea nitrogen/Creatinine [Mass ratio] 9.8 mg/mg 10-20 [facility] Laboratory - Hematology and Cell countsOrdered By: Jose Ramon Turner on 11-12-2022 Erythrocyte distribution width (RBC) [Entitic vol] 69.2 fL 35.1-43.9 [facility] Erythrocyte distribution width (RBC) [Ratio] 17.9 % 11.6-14.6 [facility] MCH (RBC) [Entitic mass] 34.8 pg 27.0-32.0 [facility] MCHC Auto (RBC) [Mass/Vol]Or dered By: Jose Ramon Turner on 11-12-2022 MCHC (RBC) [Mass/Vol] 33.1 g/dL 32-36 [facility] No Panel InformationOrdered By: Jose Ramon Turner on 11-12-2022 Estimated GFR (MDRD) Amer 52 mL/min >60 [facility] Comment on above: GFR Calc Estimated GFR (MDRD) Non-Af Amer 43 mL/min >60 [facility] Comment on above: Non- GFR Calc Platelets bldOrdered By: Bruce Turner on 11-12-2022 Platelets (Bld) [#/Vol] 242 10*3/uL 150-450 [facility] Serum or plasma calcium cory urement (mass/volume)Ordered By: Jose Ramon Turner on 11-12-2022 Calcium [Mass/Vol] 9.0 mg/dL 8.5-10.1 [facility] Serum or plasma creatinine m easurement (mass/volume)Ordered By: Jose Ramon Turner on 11-12-2022 Creatinine [Mass/Vol] 1.73 mg/dL 0.70-1.30 [facility] Comment on above: The validity of the calculated GFR & GFRAA in patients over 70 years has not been determined. Clinical correlation is essential. Serum or plasma urea nitroge n measurement (mass/volume)Ordered By: Jose Ramon Turner on 11-12-2022 Urea nitrogen [Mass/Vol] 17 mg/dL 7-18 [facility] Thin prep Papanicolaou smear with manual screeningOrdered By: Jose Ramon Turner on 11-12-2022 Thin prep Papanicolaou smear with manual screening 5 5-15 [facility] Absolute lymphocyte countOrd ered By: Dangelo Botello on 09-03-2022 Lymphocytes Auto (Unsp spec) [#/Vol] 0.99 10*3/uL 0.83-4.51 [facility] Basophil percentageOrdered B y: Dangelo Botello on 09-03-2022 Basophils/100 WBC (Bld) 0.3 % 0-1 [facility] Bilirubin [Mass/Vol] 0.60 mg/dL 0.20-1.00 [facility] Comment on above: For patients on eltr ombopag therapy, use of Dimension [place] TBIL is not recommended. Chloride [Moles/Vol] 102 mmol/L 98-107 [facility] Eosinophils/100 WBC (Bld) 0.2 % 0-5 [facility] Glucose [Mass/Vol] 110 mg/dL 74-106 [facility] Comment on above: Fasting Glucose resu lt from 100 to 125 mg/dL suggests IMPAIRED HOMEOSTASIS per A.D.A. criteria. LDH [Catalytic activity/Vol] 288 U/L 87-241 [facility] Neutrophils (Bld) [#/Vol] 5.0 10*3/uL 2.0-7.7 [facility] Neutrophils/100 WBC (Bld) 77.5 % 47-70 [facility] Potassium [Moles/Vol] 3.6 mmol/L 3.5-5.1 [facility] Protein [Mass/Vol] 7.2 g/dL 6.4-8.2 [facility] Sodium [Moles/Vol] 136 mmol/L 136-145 [facility] WBC (Bld) [#/Vol] 6.4 10*3/uL 4.4-11.0 [facility] Blood erythrocytes count (nu mber/volume)Ordered By: Dangelo Botello on 09-03-2022 RBC (Bld) [#/Vol] 4.37 10*6/uL 4.6-6.2 [facility] Blood hemoglobin measurement (mass/volume)Ordered By: Dangelo Botello on 09-03-2022 Hemoglobin (Bld) [Mass/Vol] 15.2 g/dL 13.0-16.5 [facility] Blood lymphocytes/100 leukoc ytesOrdered By: Dangelo Botello on 09-03-2022 Lymphocytes/100 WBC (Bld) 15.4 % 19-41 [facility] Blood monocytes/100 leukocyt esOrdered By: Dangelo Botello on 09-03-2022 Monocytes/100 WBC (Bld) 6.1 % 0-10 [facility] Blood platelet mean volumeOr dered By: Dangelo Botello on 09-03-2022 Platelet mean volume (Bld) [Entitic vol] 10.0 fL 6.2-12.0 [facility] Determination of erythrocyte mean corpuscular volume (MCV)Ordered By: Dangelo Botello on 09-03-2022 MCV (RBC) [Entitic vol] 100.7 fL 80-94 [facility] Hematocrit Auto (Bld) [Volum e fraction]Ordered By: Dangelo Botello on 09-03-2022 Hematocrit (Bld) [Volume fraction] 44.0 % 40-54 [facility] Laboratory - Chemistry and C hemistry - challengeOrdered By: Dangelo Botello on 09-03-2022 ALP [Catalytic activity/Vol] 76 U/L 45-117 [facility] ALT [Catalytic activity/Vol] 52 U/L 16-61 [facility] CO2 [Moles/Vol] 28.0 mmol/L 21.0-32.0 [facility] Globulin (S) [Mass/Vol] 4.1 g/dL 2.2-4.2 [facility] Urea nitrogen/Creatinine [Mass ratio] 9.5 mg/mg 10-20 [facility] Laboratory - Hematology and Cell countsOrdered By: Dangelo Botello on 09-03-2022 Anisocytosis [facility]l [facility]Bld) [facility] Erythrocyte distribution width (RBC) [Entitic vol] 68.4 fL 35.1-43.9 [facility] Erythrocyte distribution width (RBC) [Ratio] 18.4 % 11.6-14.6 [facility] Immature granulocytes/100 WBC (Bld) 0.500 % 0.0-0.9 [facility] Comment on above: IG% - Immature Granu locytes (promyelocytes, myelocytes and metamyelocytes) > 1% indicates that a LEFT SHIFT is Present. MCH (RBC) [Entitic mass] 34.8 pg 27.0-32.0 [facility] Nucleated RBC/100 WBC (Bld) [Ratio] 0.5 % 0-5 [facility] MCHC Auto (RBC) [Mass/Vol]Or dered By: Dangelo Botello on 09-03-2022 MCHC (RBC) [Mass/Vol] 34.5 g/dL 32-36 [facility] No Panel InformationOrdered By: Dangelo Botelol on 09-03-2022 Estimated Creatinine Clearance Calc 47.91 ml/min [facility] Estimated GFR (MDRD) Amer 50 mL/min >60 [facility] Comment on above: GFR Calc Estimated GFR (MDRD) Non-Af Amer 42 mL/min >60 [facility] Comment on above: Non- GFR Calc Platelets bldOrdered By: Jose Botelol on 09-03-2022 Platelets (Bld) [#/Vol] 241 10*3/uL 150-450 [facility] Serum or plasma albumin cory urement (mass/volume)Ordered By: Dangelo Botello on 09-03-2022 Albumin [Mass/Vol] 3.1 g/dL 3.2-5.0 [facility] Serum or plasma albumin/glob ulin mass ratioOrdered By: Dangelo Botello on 09-03-2022 Albumin/Globulin [Mass ratio] 0.8 {ratio} 0.9-2.4 [facility] Serum or plasma calcium cory urement (mass/volume)Ordered By: Dangelo Botello on 09-03-2022 Calcium [Mass/Vol] 9.2 mg/dL 8.5-10.1 [facility] Serum or plasma creatinine m easurement (mass/volume)Ordered By: Dangelo Botello on 09-03-2022 Creatinine [Mass/Vol] 1.79 mg/dL 0.70-1.30 [facility] Comment on above: The validity of the calculated GFR & GFRAA in patients over 70 years has not been determined. Clinical correlation is essential. Serum or plasma urea nitroge n measurement (mass/volume)Ordered By: Dangelo Botello on 09-03-2022 Urea nitrogen [Mass/Vol] 17 mg/dL 7-18 [facility] Thin prep Papanicolaou smear with manual screeningOrdered By: Dangelo Botello on 09-03-2022 Thin prep Papanicolaou smear with manual screening 36 U/L 15-37 [facility] Thin prep Papanicolaou smear with manual screening 6 5-15 [facility] Absolute lymphocyte countOrd ered By: Dr. Wei on 06-29-2022 Lymphocytes Auto (Unsp spec) [#/Vol] 0.27 10*3/uL 0.83-4.51 [facility] Basophil percentageOrdered B y: Dr. Wei on 06-29-2022 Basophils/100 WBC (Bld) 0.1 % 0-1 [facility] Chloride [Moles/Vol] 107 mmol/L 98-107 [facility] Eosinophils/100 WBC (Bld) 0.0 % 0-5 [facility] Glucose [Mass/Vol] 210 mg/dL 74-106 [facility] Comment on above: Glucose result great er than or equal to 200 mg/dLsuggests DIABETES MELLITUS per A.D.A. criteria. Neutrophils (Bld) [#/Vol] 8.6 10*3/uL 2.0-7.7 [facility] Neutrophils/100 WBC (Bld) 91.8 % 47-70 [facility] Potassium [Moles/Vol] 3.9 mmol/L 3.5-5.1 [facility] Sodium [Moles/Vol] 137 mmol/L 136-145 [facility] WBC (Bld) [#/Vol] 9.3 10*3/uL 4.4-11.0 [facility] Basophil percentageOrdered B y: Dr. Lu on 06-29-2022 Cholesterol [Mass/Vol] 126 mg/dL <200 [facility] Comment on above: <200 mg/dL Desirable 200-240 mg/dL Borderline >240 mg/dL High Risk Triglyceride [Mass/Vol] 60 mg/dL <199 [facility] Comment on above: The drugs N-Acetylcy steine and Metamizole may falsely depress this assay.Serum Triglycerides Reference Interval Normal <150 mg/dL Borderline high 150 - 199 mg/dL High 200 - 499 mg/dL Very High > or = 500 mg/dL Blood erythrocytes count (nu mber/volume)Ordered By: Dr. Wei on 06-29-2022 RBC (Bld) [#/Vol] 4.28 10*6/uL 4.6-6.2 [facility] Blood hemoglobin measurement (mass/volume)Ordered By: Dr. Wei on 06-29-2022 Hemoglobin (Bld) [Mass/Vol] 14.4 g/dL 13.0-16.5 [facility] Blood lymphocytes/100 leukoc ytesOrdered By: Dr. Wei on 06-29-2022 Lymphocytes/100 WBC (Bld) 2.9 % 19-41 [facility] Blood manual differential co mment interpretation (narrative result)Ordered By: Dr. Wei on 06-29-2022 Manual differential comment Piyush (Bld) [Interp] SCANNED [facility] Comment on above: LYMPHOPENIA Blood monocytes/100 leukocyt esOrdered By: Dr. Wei on 06-29-2022 Monocytes/100 WBC (Bld) 4.4 % 0-10 [facility] Blood platelet mean volumeOr dered By: Dr. Wei on 06-29-2022 Platelet mean volume (Bld) [Entitic vol] 11.4 fL 6.2-12.0 [facility] Determination of erythrocyte mean corpuscular volume (MCV)Ordered By: Dr. Wei on 06-29-2022 MCV (RBC) [Entitic vol] 101.9 fL 80-94 [facility] Hematocrit Auto (Bld) [Volum e fraction]Ordered By: Dr. Wei on 06-29-2022 Hematocrit (Bld) [Volume fraction] 43.6 % 40-54 [facility] - Chemistry and C hemistry - challengeOrdered By: Dr. Wei on 06-29-2022 CO2 [Moles/Vol] 27.0 mmol/L 21.0-32.0 [facility] Urea nitrogen/Creatinine [Mass ratio] 16.2 mg/mg 10-20 [facility] - Hematology and Cell countsOrdered By: Dr. Wei on 06-29-2022 Anisocytosis Ql (Bld) 2+ [facility] Erythrocyte distribution width (RBC) [Entitic vol] 66.1 fL 35.1-43.9 [facility] Erythrocyte distribution width (RBC) [Ratio] 18.0 % 11.6-14.6 [facility] Immature granulocytes/100 WBC (Bld) 0.800 % 0.0-0.9 [facility] Comment on above: IG% - Immature Granu locytes (promyelocytes, myelocytes and metamyelocytes) > 1% indicates that a LEFT SHIFT is Present. MCH (RBC) [Entitic mass] 33.6 pg 27.0-32.0 [facility] Nucleated RBC/100 WBC (Bld) [Ratio] 2.7 % 0-5 [facility] MCHC Auto (RBC) [Mass/Vol]Or dered By: Dr. Wei on 06-29-2022 MCHC (RBC) [Mass/Vol] 33.0 g/dL 32-36 [facility] No Panel InformationOrdered By: Dr. Wei on 06-29-2022 Estimated Creatinine Clearance Calc 55.69 ml/min [facility] Estimated GFR (MDRD) Amer 60 mL/min >60 [facility] Comment on above: GFR Calc Estimated GFR (MDRD) Non-Af Amer 50 mL/min >60 [facility] Comment on above: Non- GFR Calc Platelets bldOrdered By: Dr. Wei on 06-29-2022 Platelets (Bld) [#/Vol] 191 10*3/uL 150-450 [facility] Serum or plasma calcium cory urement (mass/volume)Ordered By: Dr. Wei on 06-29-2022 Calcium [Mass/Vol] 9.1 mg/dL 8.5-10.1 [facility] Serum or plasma cholesterol in HDL measurement (mass/volume)Ordered By: Dr. Lu on 06-29-2022 Cholesterol in HDL [Mass/Vol] 54 mg/dL >40 [facility] Comment on above: The drugs N-Acetylcy steine and Metamizole may falsely depress this assay. Reference Range HDL <40 mg/dL Low HDL Cholesterol HDL >or= 60 mg/dL High HDL Cholesterol Serum or plasma cholesterol in VLDL measurement (mass/volume)Ordered By: Dr. Lu on 06-29-2022 Cholesterol in VLDL [Mass/Vol] 12 mg/dL 5-40 [facility] Serum or plasma creatinine m easurement (mass/volume)Ordered By: Dr. Wei on 06-29-2022 Creatinine [Mass/Vol] 1.54 mg/dL 0.70-1.30 [facility] Comment on above: The validity of the calculated GFR & GFRAA in patients over 70 years has not been determined. Clinical correlation is essential. Serum or plasma low density lipoprotein (LDL) cholesterol measurement (mass/volume)Ordered By: Dr. Lu on 06-29-2022 Cholesterol in LDL [Mass/Vol] 60 mg/dL 0-130 [facility] Serum or plasma urea nitroge n measurement (mass/volume)Ordered By: Dr. Wei on 06-29-2022 Urea nitrogen [Mass/Vol] 25 mg/dL 7-18 [facility] Thin prep Papanicolaou smear with manual screeningOrdered By: Dr. Wei on 06-29-2022 Thin prep Papanicolaou smear with manual screening 3 5-15 [facility] Basophil percentageOrdered B y: Dr. Lu on 06-28-2022 Bilirubin [Mass/Vol] 0.80 mg/dL 0.20-1.00 [facility] Comment on above: For patients on eltr ombopag therapy, use of Dimension [place] TBIL is not recommended. Protein [Mass/Vol] 6.7 g/dL 6.4-8.2 [facility] Blood polychromasia detectio n by light microscopyOrdered By: Dr. Lu on 06-28-2022 Polychromasia LM Ql (Bld) RARE [facility] INR in Blood by Coagulation assayOrdered By: Dr. Lu on 06-28-2022 INR Coag (Bld) [Relative time] 2.1 {INR} [facility] - Chemistry and C hemistry - challengeOrdered By: Dr. Lu on 06-28-2022 ALP [Catalytic activity/Vol] 111 U/L 45-117 [facility] ALT [Catalytic activity/Vol] 146 U/L 16-61 [facility] Globulin (S) [Mass/Vol] 3.6 g/dL 2.2-4.2 [facility] Magnesium [Mass/Vol] 2.1 mg/dL 1.6-2.6 [facility] - CoagulationOrde red By: Dr. Lu on 06-28-2022 PT Coag (PPP) [Time] 22.9 s 11.7-14.9 [facility] - Microbiology an d Antimicrobial susceptibilityOrdered By: Estelita Lu on 06-28-2022 Respiratory pathogens DNA and RNA 12b panel SANDOVAL+probe (Unsp spec) [facility] - Microbiology an d Antimicrobial susceptibilityOrdered By: Dr. Lu on 06-28-2022 Respiratory pathogens DNA and RNA 12b panel SANDOVAL+probe (Unsp spec) [facility] Macrocytes detectionOrdered By: Dr. Lu on 06-28-2022 Macrocytes Ql (Bld) 1+ [facility] No Panel InformationOrdered By: Dr. Lu on 06-28-2022 Troponin I High Sensitivity 87 pg/mL 3.0-78.0 [facility] Comment on above: Please Note: New [place] t Units and Gender Specific Reference Ranges. For more information see Policy Stat Procedure [place] High Sensitivity Troponin (TNIH) and attachments. Thyroid Stimulating Hormone (TSH) 2.20 uIU/mL 0.358-3.74 [facility] Ovalocyte detectionOrdered B y: Dr. Lu on 06-28-2022 Ovalocytes LM Ql (Bld) RARE [facility] Serum or plasma albumin cory urement (mass/volume)Ordered By: Dr. Lu on 06-28-2022 Albumin [Mass/Vol] 3.1 g/dL 3.2-5.0 [facility] Serum or plasma albumin/glob ulin mass ratioOrdered By: Dr. Lu on 06-28-2022 Albumin/Globulin [Mass ratio] 0.9 {ratio} 0.9-2.4 [facility] Serum procalcitonin measurem entOrdered By: Dr. Lu on 06-28-2022 Procalcitonin [Mass/Vol] 0.09 ng/mL 0.00-0.09 [facility] Comment on above: A procalcitonin (PCT [...] smear with manual screening 130 U/L 15-37 [facility] Absolute lymphocyte countOrd ered By: Dr. Hastings on 06-27-2022 Lymphocytes Auto (Unsp spec) [#/Vol] 0.93 10*3/uL 0.83-4.51 [facility] Basophil percentageOrdered B y: Dr. Lu on 06-27-2022 Basophil percentage 2.8 mg/dL 2.5-4.9 [facility] Basophil percentageOrdered B y: Dr. Hastings on 06-27-2022 Basophils/100 WBC (Bld) 0.4 % 0-1 [facility] Chloride [Moles/Vol] 109 mmol/L 98-107 [facility] Eosinophils/100 WBC (Bld) 0.5 % 0-5 [facility] Glucose [Mass/Vol] 127 mg/dL 74-106 [facility] Comment on above: Fasting Glucose resu lt greater than or equal to 126 mg/dL suggests DIABETES MELLITUS per A.D.A. criteria. Neutrophils (Bld) [#/Vol] 4.2 10*3/uL 2.0-7.7 [facility] Neutrophils/100 WBC (Bld) 75.4 % 47-70 [facility] Potassium [Moles/Vol] 3.5 mmol/L 3.5-5.1 [facility] Sodium [Moles/Vol] 140 mmol/L 136-145 [facility] WBC (Bld) [#/Vol] 5.5 10*3/uL 4.4-11.0 [facility] Blood erythrocytes count (nu mber/volume)Ordered By: Dr. Hastings on 06-27-2022 RBC (Bld) [#/Vol] 4.24 10*6/uL 4.6-6.2 [facility] Blood hemoglobin measurement (mass/volume)Ordered By: Dr. Hastings on 06-27-2022 Hemoglobin (Bld) [Mass/Vol] 14.6 g/dL 13.0-16.5 [facility] Blood lymphocytes/100 leukoc ytesOrdered By: Dr. Hastings on 06-27-2022 Lymphocytes/100 WBC (Bld) 16.8 % 19-41 [facility] Blood manual differential co mment interpretation (narrative result)Ordered By: Dr. Hastings on 06-27-2022 Manual differential comment Piyush (Bld) [Interp] SCANNED [facility] Blood monocytes/100 leukocyt esOrdered By: Dr. Hastings on 06-27-2022 Monocytes/100 WBC (Bld) 6.0 % 0-10 [facility] Blood platelet mean volumeOr dered By: Dr. Hastings on 06-27-2022 Platelet mean volume (Bld) [Entitic vol] 11.2 fL 6.2-12.0 [facility] Determination of erythrocyte mean corpuscular volume (MCV)Ordered By: Dr. Hastings on 06-27-2022 MCV (RBC) [Entitic vol] 103.3 fL 80-94 [facility] Hematocrit Auto (Bld) [Volum e fraction]Ordered By: Dr. Hastings on 06-27-2022 Hematocrit (Bld) [Volume fraction] 43.8 % 40-54 [facility] INR in Blood by Coagulation assayOrdered By: Dr. Hastings on 06-27-2022 INR Coag (Bld) [Relative time] 2.0 {INR} [facility] - Chemistry and C hemistry - challengeOrdered By: Dr. Hastings on 06-27-2022 CO2 [Moles/Vol] 26.0 mmol/L 21.0-32.0 [facility] Natriuretic peptide B (Bld) [Mass/Vol] 278.3 pg/mL 0-100 [facility] Urea nitrogen/Creatinine [Mass ratio] 14.7 mg/mg 10-20 [facility] - CoagulationOrde red By: Dr. Hastings on 06-27-2022 aPTT Coag (Bld) [Time] 46.5 s 24.1-36.2 [facility] PT Coag (PPP) [Time] 22.5 s 11.7-14.9 [facility] - Hematology and Cell countsOrdered By: Dr. Hastings on 06-27-2022 Anisocytosis Ql (Bld) 2+ [facility] Erythrocyte distribution width (RBC) [Entitic vol] 67.8 fL 35.1-43.9 [facility] Erythrocyte distribution width (RBC) [Ratio] 17.9 % 11.6-14.6 [facility] Immature granulocytes/100 WBC (Bld) 0.900 % 0.0-0.9 [facility] Comment on above: IG% - Immature Granu locytes (promyelocytes, myelocytes and metamyelocytes) > 1% indicates that a LEFT SHIFT is Present. MCH (RBC) [Entitic mass] 34.4 pg 27.0-32.0 [facility] Nucleated RBC/100 WBC (Bld) [Ratio] 2.9 % 0-5 [facility] MCHC Auto (RBC) [Mass/Vol]Or dered By: Dr. Hastings on 06-27-2022 MCHC (RBC) [Mass/Vol] 33.3 g/dL 32-36 [facility] Macrocytes detectionOrdered By: Dr. Hastings on 06-27-2022 Macrocytes Ql (Bld) 2+ [facility] No Panel InformationOrdered By: Dr. Hastings on 06-27-2022 Estimated Creatinine Clearance Calc 46.61 ml/min [facility] Estimated GFR (MDRD) Amer 49 mL/min >60 [facility] Comment on above: GFR Calc Estimated GFR (MDRD) Non-Af Amer 40 mL/min >60 [facility] Comment on above: Non- GFR Calc Troponin I High Sensitivity 92 pg/mL 3.0-78.0 [facility] Comment on above: Please Note: New [place] t Units and Gender Specific Reference Ranges. For more information see Policy Stat Procedure [place] High Sensitivity Troponin (TNIH) and attachments. Platelets bldOrdered By: Dr. Hastings on 06-27-2022 Platelets (Bld) [#/Vol] 201 10*3/uL 150-450 [facility] Serum or plasma calcium cory urement (mass/volume)Ordered By: Dr. Hastings on 06-27-2022 Calcium [Mass/Vol] 8.9 mg/dL 8.5-10.1 [facility] Serum or plasma creatinine m easurement (mass/volume)Ordered By: Dr. Hastings on 06-27-2022 Creatinine [Mass/Vol] 1.84 mg/dL 0.70-1.30 [facility] Comment on above: The validity of the calculated GFR & GFRAA in patients over 70 years has not been determined. Clinical correlation is essential. Serum or plasma urea nitroge n measurement (mass/volume)Ordered By: Dr. Hastings on 06-27-2022 Urea nitrogen [Mass/Vol] 27 mg/dL 7-18 [facility] Thin prep Papanicolaou smear with manual screeningOrdered By: Dr. Hastings on 06-27-2022 Thin prep Papanicolaou smear with manual screening 5 5-15 [facility] Basophil percentageOrdered B y: Dr. Che on 05-20-2022 Chloride [Moles/Vol] 103 mmol/L 98-107 [facility] Glucose [Mass/Vol] 170 mg/dL 74-106 [facility] Comment on above: Fasting Glucose resu lt greater than or equal to 126 mg/dL suggests DIABETES MELLITUS per A.D.A. criteria. Potassium [Moles/Vol] 3.3 mmol/L 3.5-5.1 [facility] Sodium [Moles/Vol] 140 mmol/L 136-145 [facility] INR in Blood by Coagulation assayOrdered By: Dr. Dukes on 05-20-2022 INR Coag (Bld) [Relative time] 2.7 {INR} [facility] - Chemistry and C hemistry - challengeOrdered By: Dr. Che on 05-20-2022 CO2 [Moles/Vol] 30.0 mmol/L 21.0-32.0 [facility] Urea nitrogen/Creatinine [Mass ratio] 11.8 mg/mg 10-20 [facility] - CoagulationOrde red By: Dr. Dukes on 05-20-2022 PT Coag (PPP) [Time] 28.3 s 11.7-14.9 [facility] No Panel InformationOrdered By: Dr. Che on 05-20-2022 Estimated Creatinine Clearance Calc 48.18 ml/min [facility] Estimated GFR (MDRD) Amer 51 mL/min >60 [facility] Comment on above: GFR Calc Estimated GFR (MDRD) Non-Af Amer 42 mL/min >60 [facility] Comment on above: Non- GFR Calc Serum or plasma calcium cory urement (mass/volume)Ordered By: Dr. Che on 05-20-2022 Calcium [Mass/Vol] 8.8 mg/dL 8.5-10.1 [facility] Serum or plasma creatinine m easurement (mass/volume)Ordered By: Dr. Che on 05-20-2022 Creatinine [Mass/Vol] 1.78 mg/dL 0.70-1.30 [facility] Comment on above: The validity of the calculated GFR & GFRAA in patients over 70 years has not been determined. Clinical correlation is essential. Serum or plasma urea nitroge n measurement (mass/volume)Ordered By: Dr. Che on 05-20-2022 Urea nitrogen [Mass/Vol] 21 mg/dL 09-22 [facility] Thin prep Papanicolaou smear with manual screeningOrdered By: Dr. Che on 05-20-2022 Thin prep Papanicolaou smear with manual screening 7 - [facility] Absolute lymphocyte countOrd ered By: Dr. Dukes on 05-19-2022 Lymphocytes Auto (Unsp spec) [#/Vol] 0.92 10*3/uL 0.83-4.51 [facility] Basophil percentageOrdered B y: Dr. Dukes on 05-19-2022 Basophils/100 WBC (Bld) 0.2 % 0-1 [facility] Bilirubin [Mass/Vol] 0.70 mg/dL 0.20-1.00 [facility] Comment on above: For patients on eltr ombopag therapy, use of Dimension [place] TBIL is not recommended. Eosinophils/100 WBC (Bld) 0.5 % 0-5 [facility] Neutrophils (Bld) [#/Vol] 5.0 10*3/uL 2.0-7.7 [facility] Neutrophils/100 WBC (Bld) 80.2 % 47-70 [facility] Protein [Mass/Vol] 6.4 g/dL 6.4-8.2 [facility] WBC (Bld) [#/Vol] 6.2 10*3/uL 4.4-11.0 [facility] Blood erythrocytes count (nu mber/volume)Ordered By: Dr. Dukes on 05-19-2022 RBC (Bld) [#/Vol] 3.95 10*6/uL 4.6-6.2 [facility] Blood hemoglobin measurement (mass/volume)Ordered By: Dr. Dukes on 05-19-2022 Hemoglobin (Bld) [Mass/Vol] 13.5 g/dL 13.0-16.5 [facility] Blood lymphocytes/100 leukoc ytesOrdered By: Dr. Dukes on 05-19-2022 Lymphocytes/100 WBC (Bld) 14.8 % 19-41 [facility] Blood manual differential co mment interpretation (narrative result)Ordered By: Dr. Dukes on 05-19-2022 Manual differential comment Piyush (Bld) [Interp] SCANNED [facility] Blood monocytes/100 leukocyt esOrdered By: Dr. Dukes on 05-19-2022 Monocytes/100 WBC (Bld) 4.0 % 0-10 [facility] Blood platelet mean volumeOr dered By: Dr. Dukes on 05-19-2022 Platelet mean volume (Bld) [Entitic vol] 10.0 fL 6.2-12.0 [facility] Blood polychromasia detectio n by light microscopyOrdered By: Dr. Dukes on 05-19-2022 Polychromasia LM Ql (Bld) RARE [facility] Determination of erythrocyte mean corpuscular volume (MCV)Ordered By: Dr. Dukes on 05-19-2022 MCV (RBC) [Entitic vol] 104.1 fL 80-94 [facility] Hematocrit Auto (Bld) [Volum e fraction]Ordered By: Dr. Dukes on 05-19-2022 Hematocrit (Bld) [Volume fraction] 41.1 % 40-54 [facility] - Chemistry and C hemistry - challengeOrdered By: Dr. Dukes on 05-19-2022 ALP [Catalytic activity/Vol] 64 U/L 45-117 [facility] ALT [Catalytic activity/Vol] 61 U/L 16-61 [facility] Globulin (S) [Mass/Vol] 3.4 g/dL 2.2-4.2 [facility] Magnesium [Mass/Vol] 2.1 mg/dL 1.6-2.6 [facility] - Hematology and Cell countsOrdered By: Dr. Dukes on 05-19-2022 Anisocytosis Ql (Bld) 2+ [facility] Erythrocyte distribution width (RBC) [Entitic vol] 74.2 fL 35.1-43.9 [facility] Erythrocyte distribution width (RBC) [Ratio] 19.1 % 11.6-14.6 [facility] Immature granulocytes/100 WBC (Bld) 0.300 % 0.0-0.9 [facility] Comment on above: IG% - Immature Granu locytes (promyelocytes, myelocytes and metamyelocytes) > 1% indicates that a LEFT SHIFT is Present. MCH (RBC) [Entitic mass] 34.2 pg 27.0-32.0 [facility] Nucleated RBC/100 WBC (Bld) [Ratio] 0.6 % 0-5 [facility] - Microbiology an d Antimicrobial susceptibilityOrdered By: Dr. Dukes on 05-19-2022 Respiratory pathogens DNA and RNA 12b panel SANDOVAL+probe (Unsp spec) [facility] MCHC Auto (RBC) [Mass/Vol]Or dered By: Dr. Dukes on 05-19-2022 MCHC (RBC) [Mass/Vol] 32.8 g/dL 32-36 [facility] Macrocytes detectionOrdered By: Dr. Dukes on 05-19-2022 Macrocytes Ql (Bld) 1+ [facility] No Panel InformationOrdered By: Dr. Dukes on 05-19-2022 Thyroid Stimulating Hormone (TSH) 1.31 uIU/mL 0.358-3.74 [facility] Ovalocyte detectionOrdered B y: Dr. Dukes on 05-19-2022 Ovalocytes LM Ql (Bld) RARE [facility] Platelets bldOrdered By: Dr. Dukes on 05-19-2022 Platelets (Bld) [#/Vol] 173 10*3/uL 150-450 [facility] Serum or plasma albumin cory urement (mass/volume)Ordered By: Dr. Dukes on 05-19-2022 Albumin [Mass/Vol] 3.0 g/dL 3.2-5.0 [facility] Serum or plasma albumin/glob ulin mass ratioOrdered By: Dr. Dukes on 05-19-2022 Albumin/Globulin [Mass ratio] 0.9 {ratio} 0.9-2.4 [facility] Thin prep Papanicolaou smear with manual screeningOrdered By: Dr. Dukes on 05-19-2022 Thin prep Papanicolaou smear with manual screening 38 U/L 15-37 [facility] Absolute lymphocyte countOrd ered By: Dr. Banda on 05-18-2022 Lymphocytes Auto (Unsp spec) [#/Vol] 0.87 10*3/uL 0.83-4.51 [facility] Basophil percentageOrdered B y: Dr. Banda on 05-18-2022 Basophils/100 WBC (Bld) 0.5 % 0-1 [facility] Chloride [Moles/Vol] 105 mmol/L 98-107 [facility] Eosinophils/100 WBC (Bld) 0.2 % 0-5 [facility] Glucose [Mass/Vol] 124 mg/dL 74-106 [facility] Comment on above: Fasting Glucose resu lt from 100 to 125 mg/dL suggests IMPAIRED HOMEOSTASIS per A.D.A. criteria. Neutrophils (Bld) [#/Vol] 5.3 10*3/uL 2.0-7.7 [facility] Neutrophils/100 WBC (Bld) 80.8 % 47-70 [facility] Potassium [Moles/Vol] 3.8 mmol/L 3.5-5.1 [facility] Comment on above: Slight Hemolysis, Re sult may be falsely increased. Sodium [Moles/Vol] 143 mmol/L 136-145 [facility] WBC (Bld) [#/Vol] 6.6 10*3/uL 4.4-11.0 [facility] Blood erythrocytes count (nu mber/volume)Ordered By: Dr. Banda on 05-18-2022 RBC (Bld) [#/Vol] 4.33 10*6/uL 4.6-6.2 [facility] Blood hemoglobin measurement (mass/volume)Ordered By: Dr. Banda on 05-18-2022 Hemoglobin (Bld) [Mass/Vol] 14.6 g/dL 13.0-16.5 [facility] Blood lymphocytes/100 leukoc ytesOrdered By: Dr. Banda on 05-18-2022 Lymphocytes/100 WBC (Bld) 13.3 % 19-41 [facility] Blood monocytes/100 leukocyt esOrdered By: Dr. Banda on 05-18-2022 Monocytes/100 WBC (Bld) 4.9 % 0-10 [facility] Blood platelet adequacy dete ction by light microscopyOrdered By: Dr. Banda on 05-18-2022 Platelets LM Ql (Bld) SLT DEC ADEQ [facility] Blood platelet mean volumeOr dered By: Dr. Banda on 05-18-2022 Platelet mean volume (Bld) [Entitic vol] 10.3 fL 6.2-12.0 [facility] CNPNon 05-18-2022 CNPN Telephone (CARMOB) ----- YEFRI YANEZ ([id number]) 1965 M [facility] Date Time Provider Department 05/18/22 SAYRA TELLO During your visit today, we recorded the following information about you: Abbey Nash 05/18/2022 8:28 AM Signed Received a records request from [facility]. Will pull and fax records. Abbey Nash 05/18/2022 10:51 AM Signed Faxed records to [facility] at [phone] Allergies As of Date: 05/18/2022 Noted Allergy [...] Status:Closed by ABBEY NASH on 05/18/22 [facility] COVID-19 virus antigen assay Ordered By: Dr. Dukes on 05-18-2022 SARS-CoV-2 (COVID-19) Ag IA.rapid Ql (Resp) Not detected Not Detect [facility] Comment on above: Normal Reference Ran [...] (RBC) [Entitic vol] 102.1 fL 80-94 [facility] Hematocrit Auto (Bld) [Volum e fraction]Ordered By: Dr. Banda on 05-18-2022 Hematocrit (Bld) [Volume fraction] 44.2 % 40-54 [facility] INR in Blood by Coagulation assayOrdered By: Dr. Banda on 05-18-2022 INR Coag (Bld) [Relative time] 2.8 {INR} [facility] - Chemistry and C hemistry - challengeOrdered By: Dr. Banda on 05-18-2022 CO2 [Moles/Vol] 31.0 mmol/L 21.0-32.0 [facility] Natriuretic peptide B (Bld) [Mass/Vol] 343.5 pg/mL 0-100 [facility] Urea nitrogen/Creatinine [Mass ratio] 11.5 mg/mg 10-20 [facility] - CoagulationOrde red By: Dr. Banda on 05-18-2022 PT Coag (PPP) [Time] 28.9 s 11.7-14.9 [facility] - Hematology and Cell countsOrdered By: Dr. Banda on 05-18-2022 Anisocytosis Ql (Bld) 2+ [facility] Erythrocyte distribution width (RBC) [Entitic vol] 74.1 fL 35.1-43.9 [facility] Erythrocyte distribution width (RBC) [Ratio] 19.4 % 11.6-14.6 [facility] Immature granulocytes/100 WBC (Bld) 0.300 % 0.0-0.9 [facility] Comment on above: IG% - Immature Granu locytes (promyelocytes, myelocytes and metamyelocytes) > 1% indicates that a LEFT SHIFT is Present. MCH (RBC) [Entitic mass] 33.7 pg 27.0-32.0 [facility] Nucleated RBC/100 WBC (Bld) [Ratio] 0.6 % 0-5 [facility] - Microbiology an d Antimicrobial susceptibilityOrdered By: Alicia Dukes on 05-18-2022 Respiratory pathogens DNA and RNA 12b panel SANDOVAL+probe (Unsp spec) [facility] MCHC Auto (RBC) [Mass/Vol]Or dered By: Dr. Banda on 05-18-2022 MCHC (RBC) [Mass/Vol] 33.0 g/dL 32-36 [facility] No Panel InformationOrdered By: Dr. Banda on 05-18-2022 Estimated Creatinine Clearance Calc 54.62 ml/min [facility] Estimated GFR (MDRD) Amer 59 mL/min >60 [facility] Comment on above: GFR Calc Estimated GFR (MDRD) Non-Af Amer 48 mL/min >60 [facility] Comment on above: Non- GFR Calc Troponin I High Sensitivity 73 pg/mL 3.0-78.0 [facility] Comment on above: Please Note: New [place] t Units and Gender Specific Reference Ranges. For more information see Policy Stat Procedure [place] High Sensitivity Troponin (TNIH) and attachments. Ovalocyte detectionOrdered B y: Dr. Banda on 05-18-2022 Ovalocytes LM Ql (Bld) 1+ Wo [facility] Platelets bldOrdered By: Dr. Banda on 05-18-2022 Platelets (Bld) [#/Vol] 183 10*3/uL 150-450 [facility] Serum or plasma calcium cory urement (mass/volume)Ordered By: Dr. Banda on 05-18-2022 Calcium [Mass/Vol] 9.2 mg/dL 8.5-10.1 [facility] Serum or plasma creatinine m easurement (mass/volume)Ordered By: Dr. Banda on 05-18-2022 Creatinine [Mass/Vol] 1.57 mg/dL 0.70-1.30 [facility] Comment on above: The validity of the calculated GFR & GFRAA in patients over 70 years has not been determined. Clinical correlation is essential. Serum or plasma urea nitroge n measurement (mass/volume)Ordered By: Dr. Banda on 05-18-2022 Urea nitrogen [Mass/Vol] 18 mg/dL 7-18 [facility] Thin prep Papanicolaou smear with manual screeningOrdered By: Dr. Banda on 05-18-2022 Thin prep Papanicolaou smear with manual screening 7 5-15 [facility] Basophil percentageOrdered B y: Dr. Chiu on 04-16-2022 Chloride [Moles/Vol] 105 mmol/L 98-107 [facility] Glucose [Mass/Vol] 110 mg/dL 74-106 [facility] Comment on above: Fasting Glucose resu lt from 100 to 125 mg/dL suggests IMPAIRED HOMEOSTASIS per A.D.A. criteria. Potassium [Moles/Vol] 3.7 mmol/L 3.5-5.1 [facility] Sodium [Moles/Vol] 141 mmol/L 136-145 [facility] INR in Blood by Coagulation assayOrdered By: Dr. Camacho on 04-16-2022 INR Coag (Bld) [Relative time] 2.1 {INR} [facility] Laboratory - Chemistry and C hemistry - challengeOrdered By: Dr. Chiu on 04-16-2022 CO2 [Moles/Vol] 31.0 mmol/L 21.0-32.0 [facility] Urea nitrogen/Creatinine [Mass ratio] 17.2 mg/mg 10-20 [facility] Laboratory - CoagulationOrde red By: Dr. Camacho on 04-16-2022 PT Coag (PPP) [Time] 23.6 s 11.7-14.9 [facility] No Panel InformationOrdered By: Dr. Chiu on 04-16-2022 Estimated Creatinine Clearance Calc 49.19 ml/min [facility] Estimated GFR (MDRD) Amer 54 mL/min >60 [facility] Comment on above: GFR Calc Estimated GFR (MDRD) Non-Af Amer 45 mL/min >60 [facility] Comment on above: Non- GFR Calc Serum or plasma calcium cory urement (mass/volume)Ordered By: Dr. Chiu on 04-16-2022 Calcium [Mass/Vol] 9.0 mg/dL 8.5-10.1 [facility] Serum or plasma creatinine m easurement (mass/volume)Ordered By: Dr. Chiu on 04-16-2022 Creatinine [Mass/Vol] 1.69 mg/dL 0.70-1.30 [facility] Comment on above: The validity of the calculated GFR & GFRAA in patients over 70 years has not been determined. Clinical correlation is essential. Serum or plasma urea nitroge n measurement (mass/volume)Ordered By: Dr. Chiu on 04-16-2022 Urea nitrogen [Mass/Vol] 29 mg/dL 7-18 [facility] Thin prep Papanicolaou smear with manual screeningOrdered By: Dr. Chiu on 04-16-2022 Thin prep Papanicolaou smear with manual screening 5 5-15 [facility] Absolute lymphocyte countOrd ered By: Dr. Chiu on 04-15-2022 Lymphocytes Auto (Unsp spec) [#/Vol] 0.77 10*3/uL 0.83-4.51 [facility] Basophil percentageOrdered B y: Dr. Chiu on 04-15-2022 Basophil percentage 3.9 mg/dL 2.5-4.9 [facility] Basophils/100 WBC (Bld) 0.6 % 0-1 [facility] Cholesterol [Mass/Vol] 190 mg/dL <200 [facility] Comment on above: <200 mg/dL Desirable 200-240 mg/dL Borderline >240 mg/dL High Risk Eosinophils/100 WBC (Bld) 0.4 % 0-5 [facility] Neutrophils (Bld) [#/Vol] 3.8 10*3/uL 2.0-7.7 [facility] Neutrophils/100 WBC (Bld) 74.5 % 47-70 [facility] Triglyceride [Mass/Vol] 159 mg/dL <199 [facility] Comment on above: The drugs N-Acetylcy steine and Metamizole may falsely depress this assay.Serum Triglycerides Reference Interval Normal <150 mg/dL Borderline high 150 - 199 mg/dL High 200 - 499 mg/dL Very High > or = 500 mg/dL WBC (Bld) [#/Vol] 5.1 10*3/uL 4.4-11.0 [facility] Blood erythrocytes count (nu mber/volume)Ordered By: Dr. Chiu on 04-15-2022 RBC (Bld) [#/Vol] 3.92 10*6/uL 4.6-6.2 [facility] Blood hemoglobin measurement (mass/volume)Ordered By: Dr. Chiu on 04-15-2022 Hemoglobin (Bld) [Mass/Vol] 12.6 g/dL 13.0-16.5 [facility] Blood lymphocytes/100 leukoc ytesOrdered By: Dr. Chiu on 04-15-2022 Lymphocytes/100 WBC (Bld) 15.1 % 19-41 [facility] Blood monocytes/100 leukocyt esOrdered By: Dr. Chiu on 04-15-2022 Monocytes/100 WBC (Bld) 8.4 % 0-10 [facility] Blood platelet mean volumeOr dered By: Dr. Chiu on 04-15-2022 Platelet mean volume (Bld) [Entitic vol] 11.1 fL 6.2-12.0 [facility] Determination of erythrocyte mean corpuscular volume (MCV)Ordered By: Dr. Chiu on 04-15-2022 MCV (RBC) [Entitic vol] 98.2 fL 80-94 [facility] Hematocrit Auto (Bld) [Volum e fraction]Ordered By: Dr. Chiu on 04-15-2022 Hematocrit (Bld) [Volume fraction] 38.5 % 40-54 [facility] Laboratory - Chemistry and C hemistry - challengeOrdered By: Dr. Chiu on 04-15-2022 Magnesium [Mass/Vol] 2.1 mg/dL 1.6-2.6 [facility] Comment on above: Moderate Hemolysis, Result may be falsely increased. Laboratory - Hematology and Cell countsOrdered By: Dr. Chiu on 04-15-2022 Anisocytosis Ql (Bld) 2+ [facility] Erythrocyte distribution width (RBC) [Entitic vol] 73.5 fL 35.1-43.9 [facility] Erythrocyte distribution width (RBC) [Ratio] 20.7 % 11.6-14.6 [facility] Immature granulocytes/100 WBC (Bld) 1.000 % 0.0-0.9 [facility] Comment on above: IG% - Immature Granu locytes (promyelocytes, myelocytes and metamyelocytes) > 1% indicates that a LEFT SHIFT is Present. MCH (RBC) [Entitic mass] 32.1 pg 27.0-32.0 [facility] Nucleated RBC/100 WBC (Bld) [Ratio] 5.7 % 0-5 [facility] MCHC Auto (RBC) [Mass/Vol]Or dered By: Dr. Chiu on 04-15-2022 MCHC (RBC) [Mass/Vol] 32.7 g/dL 32-36 [facility] Macrocytes detectionOrdered By: Dr. Chiu on 04-15-2022 Macrocytes Ql (Bld) 1+ [facility] Platelets bldOrdered By: Dr. Chiu on 04-15-2022 Platelets (Bld) [#/Vol] 212 10*3/uL 150-450 [facility] Serum or plasma cholesterol in HDL measurement (mass/volume)Ordered By: Dr. Chiu on 04-15-2022 Cholesterol in HDL [Mass/Vol] 39 mg/dL >40 [facility] Comment on above: The drugs N-Acetylcy steine and Metamizole may falsely depress this assay. Reference Range HDL <40 mg/dL Low HDL Cholesterol HDL >or= 60 mg/dL High HDL Cholesterol Serum or plasma cholesterol in VLDL measurement (mass/volume)Ordered By: Dr. Chiu on 04-15-2022 Cholesterol in VLDL [Mass/Vol] 32 mg/dL 5-40 [facility] Serum or plasma low density lipoprotein (LDL) cholesterol measurement (mass/volume)Ordered By: Dr. Chiu on 04-15-2022 Cholesterol in LDL [Mass/Vol] 119 mg/dL 0-130 [facility] Basophil percentageOrdered B y: Dr. Camacho on 04-14-2022 Bilirubin [Mass/Vol] 1.20 mg/dL 0.20-1.00 [facility] Comment on above: For patients on eltr ombopag therapy, use of Dimension [place] TBIL is not recommended. Protein [Mass/Vol] 6.5 g/dL 6.4-8.2 [facility] Blood manual differential co mment interpretation (narrative result)Ordered By: Dr. Camacho on 04-14-2022 Manual differential comment Piyush (Bld) [Interp] SCANNED [facility] Laboratory - Chemistry and C hemistry - challengeOrdered By: Dr. Camacho on 04-14-2022 ALP [Catalytic activity/Vol] 75 U/L 45-117 [facility] ALT [Catalytic activity/Vol] 46 U/L 16-61 [facility] Globulin (S) [Mass/Vol] 3.7 g/dL 2.2-4.2 [facility] No Panel InformationOrdered By: Dr. Camacho on 04-14-2022 Troponin I High Sensitivity 121 pg/mL 3.0-78.0 [facility] Comment on above: Critical Result(s) C alled at: 04:02:32 04/14/2022 by: CHERI Callahan RN ICU. Results read back by same. Please Note: New Test Units and Gender Specific Reference Ranges. For more information see Policy Stat Procedure [place] High Sensitivity Troponin (TNIH) and attachments. No Panel InformationOrdered By: ED PROVIDER on 04-14-2022 Troponin I High Sensitivity 133 pg/mL 3.0-78.0 [facility] Comment on above: Critical Result(s) C alled at: 00:45:24 04/14/2022 by: Mello KAUFFMAN RN (ED) Results read back by same. Please Note: New Test Units and Gender Specific Reference Ranges. For more information see Policy Stat Procedure [place] High Sensitivity Troponin (TNIH) and attachments. Serum or plasma albumin cory urement (mass/volume)Ordered By: Dr. Camacho on 04-14-2022 Albumin [Mass/Vol] 2.8 g/dL 3.2-5.0 [facility] Serum or plasma albumin/glob ulin mass ratioOrdered By: Dr. Camacho on 04-14-2022 Albumin/Globulin [Mass ratio] 0.8 {ratio} 0.9-2.4 [facility] Thin prep Papanicolaou smear with manual screeningOrdered By: Dr. Camacho on 04-14-2022 Thin prep Papanicolaou smear with manual screening 37 U/L 15-37 [facility] Absolute lymphocyte countOrd ered By: ED PROVIDER on 04-13-2022 Lymphocytes Auto (Unsp spec) [#/Vol] 0.72 10*3/uL 0.83-4.51 [facility] Absolute lymphocyte countOrd ered By: Dr. Turner on 04-13-2022 Lymphocytes Auto (Unsp spec) [#/Vol] 0.85 10*3/uL 0.83-4.51 [facility] Basophil percentageOrdered B y: ED PROVIDER on 04-13-2022 Basophils/100 WBC (Bld) 0.4 % 0-1 [facility] Chloride [Moles/Vol] 111 mmol/L 98-107 [facility] Eosinophils/100 WBC (Bld) 0.0 % 0-5 [facility] Glucose [Mass/Vol] 125 mg/dL 74-106 [facility] Comment on above: Fasting Glucose resu lt from 100 to 125 mg/dL suggests IMPAIRED HOMEOSTASIS per A.D.A. criteria. Neutrophils (Bld) [#/Vol] 4.5 10*3/uL 2.0-7.7 [facility] Neutrophils/100 WBC (Bld) 79.4 % 47-70 [facility] Potassium [Moles/Vol] 3.7 mmol/L 3.5-5.1 [facility] Sodium [Moles/Vol] 143 mmol/L 136-145 [facility] WBC (Bld) [#/Vol] 5.7 10*3/uL 4.4-11.0 [facility] Basophil percentageOrdered B y: Dr. Turner on 04-13-2022 Basophils/100 WBC (Bld) 0.3 % 0-1 [facility] Bilirubin [Mass/Vol] 1.80 mg/dL 0.20-1.00 [facility] Comment on above: For patients on eltr ombopag therapy, use of Dimension [place] TBIL is not recommended. Chloride [Moles/Vol] 108 mmol/L 98-107 [facility] Eosinophils/100 WBC (Bld) 0.3 % 0-5 [facility] Glucose [Mass/Vol] 108 mg/dL 74-106 [facility] Comment on above: Fasting Glucose resu lt from 100 to 125 mg/dL suggests IMPAIRED HOMEOSTASIS per A.D.A. criteria. Neutrophils (Bld) [#/Vol] 5.0 10*3/uL 2.0-7.7 [facility] Neutrophils/100 WBC (Bld) 78.6 % 47-70 [facility] Potassium [Moles/Vol] 3.5 mmol/L 3.5-5.1 [facility] Protein [Mass/Vol] 7.4 g/dL 6.4-8.2 [facility] Sodium [Moles/Vol] 143 mmol/L 136-145 [facility] WBC (Bld) [#/Vol] 6.4 10*3/uL 4.4-11.0 [facility] Blood erythrocytes count (nu mber/volume)Ordered By: ED PROVIDER on 04-13-2022 RBC (Bld) [#/Vol] 4.03 10*6/uL 4.6-6.2 [facility] Blood erythrocytes count (nu mber/volume)Ordered By: Dr. Turner on 04-13-2022 RBC (Bld) [#/Vol] 4.35 10*6/uL 4.6-6.2 [facility] Blood hemoglobin measurement (mass/volume)Ordered By: ED PROVIDER on 04-13-2022 Hemoglobin (Bld) [Mass/Vol] 12.8 g/dL 13.0-16.5 [facility] Blood hemoglobin measurement (mass/volume)Ordered By: Dr. Turner on 04-13-2022 Hemoglobin (Bld) [Mass/Vol] 13.9 g/dL 13.0-16.5 [facility] Blood lymphocytes/100 leukoc ytesOrdered By: ED PROVIDER on 04-13-2022 Lymphocytes/100 WBC (Bld) 12.7 % 19-41 [facility] Blood lymphocytes/100 leukoc ytesOrdered By: Dr. Turner on 04-13-2022 Lymphocytes/100 WBC (Bld) 13.3 % 19-41 [facility] Blood manual differential co mment interpretation (narrative result)Ordered By: ED PROVIDER on 04-13-2022 Manual differential comment Piyush (Bld) [Interp] SCANNED [facility] Comment on above: 1+ ANISOCYTOSIS Blood manual differential co mment interpretation (narrative result)Ordered By: Dr. Turner on 04-13-2022 Manual differential comment Piyush (Bld) [Interp] SCANNED [facility] Comment on above: 1+ ANISOCYTOSIS Blood monocytes/100 leukocyt esOrdered By: ED PROVIDER on 04-13-2022 Monocytes/100 WBC (Bld) 7.1 % 0-10 [facility] Blood monocytes/100 leukocyt esOrdered By: Dr. Turner on 04-13-2022 Monocytes/100 WBC (Bld) 7.0 % 0-10 [facility] Blood platelet mean volumeOr dered By: ED PROVIDER on 04-13-2022 Platelet mean volume (Bld) [Entitic vol] 10.8 fL 6.2-12.0 [facility] Blood platelet mean volumeOr dered By: Dr. Turner on 04-13-2022 Platelet mean volume (Bld) [Entitic vol] 11.7 fL 6.2-12.0 [facility] Determination of erythrocyte mean corpuscular volume (MCV)Ordered By: ED PROVIDER on 04-13-2022 MCV (RBC) [Entitic vol] 94.8 fL 80-94 [facility] Determination of erythrocyte mean corpuscular volume (MCV)Ordered By: Dr. Turner on 04-13-2022 MCV (RBC) [Entitic vol] 97.2 fL 80-94 [facility] Hematocrit Auto (Bld) [Volum e fraction]Ordered By: ED PROVIDER on 04-13-2022 Hematocrit (Bld) [Volume fraction] 38.2 % 40-54 [facility] Hematocrit Auto (Bld) [Volum e fraction]Ordered By: Dr. Turner on 04-13-2022 Hematocrit (Bld) [Volume fraction] 42.3 % 40-54 [facility] INR in Blood by Coagulation assayOrdered By: Dr. Dunn on 04-13-2022 INR Coag (Bld) [Relative time] 1.9 {INR} [facility] Laboratory - Chemistry and C hemistry - challengeOrdered By: ED PROVIDER on 04-13-2022 CO2 [Moles/Vol] 25.0 mmol/L 21.0-32.0 [facility] Urea nitrogen/Creatinine [Mass ratio] 7.7 mg/mg 10-20 [facility] - Chemistry and C hemistry - challengeOrdered By: Dr. Turner on 04-13-2022 Natriuretic peptide B (Bld) [Mass/Vol] 699.0 pg/mL 0-100 [facility] ALP [Catalytic activity/Vol] 83 U/L 45-117 [facility] ALT [Catalytic activity/Vol] 48 U/L 16-61 [facility] CO2 [Moles/Vol] 27.0 mmol/L 21.0-32.0 [facility] Globulin (S) [Mass/Vol] 4.0 g/dL 2.2-4.2 [facility] Urea nitrogen/Creatinine [Mass ratio] 7.3 mg/mg 10-20 [facility] Laboratory - CoagulationOrde red By: Dr. Dunn on 04-13-2022 PT Coag (PPP) [Time] 21.7 s 11.7-14.9 [facility] Laboratory - Hematology and Cell countsOrdered By: ED PROVIDER on 04-13-2022 Erythrocyte distribution width (RBC) [Entitic vol] 69.1 fL 35.1-43.9 [facility] Erythrocyte distribution width (RBC) [Ratio] 20.2 % 11.6-14.6 [facility] Immature granulocytes/100 WBC (Bld) 0.400 % 0.0-0.9 [facility] Comment on above: IG% - Immature Granu locytes (promyelocytes, myelocytes and metamyelocytes) > 1% indicates that a LEFT SHIFT is Present. MCH (RBC) [Entitic mass] 31.8 pg 27.0-32.0 [facility] Nucleated RBC/100 WBC (Bld) [Ratio] 1.8 % 0-5 [facility] Laboratory - Hematology and Cell countsOrdered By: Dr. Turner on 04-13-2022 Erythrocyte distribution width (RBC) [Entitic vol] 71.7 fL 35.1-43.9 [facility] Erythrocyte distribution width (RBC) [Ratio] 20.5 % 11.6-14.6 [facility] Immature granulocytes/100 WBC (Bld) 0.500 % 0.0-0.9 [facility] Comment on above: IG% - Immature Granu locytes (promyelocytes, myelocytes and metamyelocytes) > 1% indicates that a LEFT SHIFT is Present. MCH (RBC) [Entitic mass] 32.0 pg 27.0-32.0 [facility] Nucleated RBC/100 WBC (Bld) [Ratio] 1.1 % 0-5 [facility] MCHC Auto (RBC) [Mass/Vol]Or dered By: ED PROVIDER on 04-13-2022 MCHC (RBC) [Mass/Vol] 33.5 g/dL 32-36 [facility] MCHC Auto (RBC) [Mass/Vol]Or dered By: Dr. Turner on 04-13-2022 MCHC (RBC) [Mass/Vol] 32.9 g/dL 32-36 [facility] No Panel InformationOrdered By: ED PROVIDER on 04-13-2022 Estimated Creatinine Clearance Calc 44.21 ml/min [facility] Estimated GFR (MDRD) Amer 46 mL/min >60 [facility] Comment on above: GFR Calc Estimated GFR (MDRD) Non-Af Amer 38 mL/min >60 [facility] Comment on above: Non- GFR Calc No Panel InformationOrdered By: Dr. Turner on 04-13-2022 Estimated GFR (MDRD) Amer 46 mL/min >60 [facility] Comment on above: GFR Calc Estimated GFR (MDRD) Non-Af Amer 38 mL/min >60 [facility] Comment on above: Non- GFR Calc Troponin I High Sensitivity 118 pg/mL 3.0-78.0 [facility] Comment on above: Please Note: New [place] t Units and Gender Specific Reference Ranges. For more information see Policy Stat Procedure [place] High Sensitivity Troponin (TNIH) and attachments. Platelets bldOrdered By: ED PROVIDER on 04-13-2022 Platelets (Bld) [#/Vol] 197 10*3/uL 150-450 [facility] Platelets bldOrdered By: Dr. Turner on 04-13-2022 Platelets (Bld) [#/Vol] 222 10*3/uL 150-450 [facility] Serum or plasma albumin cory urement (mass/volume)Ordered By: Dr. Turner on 04-13-2022 Albumin [Mass/Vol] 3.4 g/dL 3.2-5.0 [facility] Serum or plasma albumin/glob ulin mass ratioOrdered By: Dr. Turner on 04-13-2022 Albumin/Globulin [Mass ratio] 0.8 {ratio} 0.9-2.4 [facility] Serum or plasma calcium cory urement (mass/volume)Ordered By: ED PROVIDER on 04-13-2022 Calcium [Mass/Vol] 9.0 mg/dL 8.5-10.1 [facility] Serum or plasma calcium cory urement (mass/volume)Ordered By: Dr. Turner on 04-13-2022 Calcium [Mass/Vol] 9.4 mg/dL 8.5-10.1 [facility] Serum or plasma creatinine m easurement (mass/volume)Ordered By: ED PROVIDER on 04-13-2022 Creatinine [Mass/Vol] 1.94 mg/dL 0.70-1.30 [facility] Comment on above: The validity of the calculated GFR & GFRAA in patients over 70 years has not been determined. Clinical correlation is essential. Serum or plasma creatinine m easurement (mass/volume)Ordered By: Dr. Turner on 04-13-2022 Creatinine [Mass/Vol] 1.93 mg/dL 0.70-1.30 [facility] Comment on above: The validity of the calculated GFR & GFRAA in patients over 70 years has not been determined. Clinical correlation is essential. Serum or plasma urea nitroge n measurement (mass/volume)Ordered By: ED PROVIDER on 04-13-2022 Urea nitrogen [Mass/Vol] 15 mg/dL 09-22 [facility] Serum or plasma urea nitroge n measurement (mass/volume)Ordered By: Dr. Turner on 04-13-2022 Urea nitrogen [Mass/Vol] 14 mg/dL 09-22 [facility] Thin prep Papanicolaou smear with manual screeningOrdered By: ED PROVIDER on 04-13-2022 Thin prep Papanicolaou smear with manual screening 7 - [facility] Thin prep Papanicolaou smear with manual screeningOrdered By: Dr. Turner on 04-13-2022 Thin prep Papanicolaou smear with manual screening 41 U/L 15-37 [facility] Thin prep Papanicolaou smear with manual screening 8 5-15 [facility] CBC W Auto Differential pane l (Bld)on 04-09-2022 Basophils (Bld) [#/Vol] 10*3/uL Normal <0.11 [facility] Comment on above: Order Comment: Speci men Type: BLOOD SPECIMENOrdering Facility: [facility] Address: [address] [address] Performed By: #### 5 7021-8 ####[facility]CL[facility] [id number] [place] [address] [place] Basophils/100 WBC (Bld) 0.3 % Normal [facility] Comment on above: Order Comment: Speci men Type: BLOOD SPECIMENOrdering Facility: [facility] Address: [address] [place] [address] Performed By: #### 5 7021-8 ####[facility] [id number] [place] [address] [place] Differential cell count method Nom (Bld) Auto Normal [facility] Comment on above: Order Comment: Speci men Type: BLOOD SPECIMENOrdering Facility: [facility] Address: [address] [place] [address] Performed By: #### 5 7021-8 ####[facility] [id number] [place] [address] [place] Eosinophils (Bld) [#/Vol] 0.04 10*3/uL Normal <0.46 [facility] Comment on above: Order Comment: Speci men Type: BLOOD SPECIMENOrdering Facility: [facility] Address: [address] [address] Performed By: #### 5 7021-8 ####[facility] [id number] [place] [address] [place] Eosinophils/100 WBC (Bld) 0.7 % Normal [facility] Comment on above: Order Comment: Speci men Type: BLOOD SPECIMENOrdering Facility: [facility] Address: [address] [place] [address] Performed By: #### 5 7021-8 ####[facility] [id number] [address] [place] Erythrocyte distribution width (RBC) [Ratio] 19.2 % High 11.5-15.0 [facility] Comment on above: Order Comment: Speci men Type: BLOOD SPECIMENOrdering Facility: [facility] Address: [address] [place] [address] Performed By: #### 5 7021-8 ####[facility] [id number] [address] [place] Hematocrit (Bld) [Volume fraction] 42.1 % Normal 39.0-51.0 [facility] Comment on above: Order Comment: Speci men Type: BLOOD SPECIMENOrdering Facility: [facility] Address: [address] [place] [address] Performed By: #### 5 7021-8 ####[facility] [id number] [address] [place] Hemoglobin (Bld) [Mass/Vol] 14.5 g/dL Normal 13.0-17.0 [facility] Comment on above: Order Comment: Speci men Type: BLOOD SPECIMENOrdering Facility: [facility] Address: [address] [place] [address] Performed By: #### 5 7021-8 ####[facility] [id number] [place] [address] [place] Immature granulocytes (Bld) [#/Vol] 0.03 10*3/uL Normal <0.10 [facility] Comment on above: Order Comment: Speci men Type: BLOOD SPECIMENOrdering Facility: [facility] Address: [address] [place] [address] Performed By: #### 5 7021-8 ####[facility] [id number] [place] [address] [place] Immature granulocytes/100 WBC (Bld) 0.5 % Normal [facility] Comment on above: Order Comment: Speci men Type: BLOOD SPECIMENOrdering Facility: [facility] Address: [address] [place] [address] Performed By: #### 5 7021-8 ####[facility] [id number] [address] [place] Lymphocytes (Bld) [#/Vol] 1.09 10*3/uL Normal 1.00-4.00 [facility] Comment on above: Order Comment: Speci men Type: BLOOD SPECIMENOrdering Facility: [facility] Address: [address] [place] [address] Performed By: #### 5 7021-8 ####[facility] [id number] [address] [place] Lymphocytes/100 WBC (Bld) 18.7 % Normal [facility] Comment on above: Order Comment: Speci men Type: BLOOD SPECIMENOrdering Facility: [facility] Address: [address] [place] [address] Performed By: #### 5 7021-8 ####[facility] [id number] [place] [address] [place] MCH (RBC) [Entitic mass] 32.2 pg Normal 26.0-34.0 [facility] Comment on above: Order Comment: Speci men Type: BLOOD SPECIMENOrdering Facility: [facility] Address: [address] [place], [place] [id number] Performed By: #### 5 7021-8 ####[facility] [id number] [address] [address] [place] MCHC (RBC) [Mass/Vol] 34.4 g/dL Normal 30.5-36.0 [facility] Comment on above: Order Comment: Speci men Type: BLOOD SPECIMENOrdering Facility: [facility] Address: [address] [place], [place] [address] Performed By: #### 5 7021-8 ####[facility] LABCLIA [id number] [place] [address] [place] MCV (RBC) [Entitic vol] 93.3 fL Normal 80.0-100.0 [facility] Comment on above: Order Comment: Speci men Type: BLOOD SPECIMENOrdering Facility: [facility] Address: [address] [place] [address] Performed By: #### 5 7021-8 ####[facility] ONC LABCLIA [id number] [place] [address] [place] Monocytes (Bld) [#/Vol] 0.45 10*3/uL Normal <0.87 [facility] Comment on above: Order Comment: Speci men Type: BLOOD SPECIMENOrdering Facility: [facility] Address: [address] [place] [address] Performed By: #### 5 7021-8 ####[facility] ON[facility] LABCLIA [id number] [place] [address] [place] Monocytes/100 WBC (Bld) 7.7 % Normal [facility] Comment on above: Order Comment: Speci men Type: BLOOD SPECIMENOrdering Facility: [facility] Address: [address] [place] [address] Performed By: #### 5 7021-8 ####[facility] ONC LABCLIA [id number] [place] [address] [place] Neutrophils (Bld) [#/Vol] 4.20 10*3/uL Normal 1.45-7.50 [facility] Comment on above: Order Comment: Speci men Type: BLOOD SPECIMENOrdering Facility: [facility] Address: [address] [place] [address] Performed By: #### 5 7021-8 ####[facility] LABCLIA [id number] [place] [address] [place] Neutrophils/100 WBC (Bld) 72.1 % Normal [facility] Comment on above: Order Comment: Speci men Type: BLOOD SPECIMENOrdering Facility: [facility] Address: [address] Performed By: #### 5 7021-8 ####[facility] LABCLIA [id number] [address] [place] Platelet mean volume (Bld) [Entitic vol] 10.4 fL Normal 9.0-12.7 [facility] Comment on above: Order Comment: Speci men Type: BLOOD SPECIMENOrdering Facility: [facility] Address: [address] Performed By: #### 5 7021-8 ####[facility] LABCLIA [id number] [place] [address] [place] Platelets (Bld) [#/Vol] 219 10*3/uL Normal 150-400 [facility] Comment on above: Order Comment: Speci men Type: BLOOD SPECIMENOrdering Facility: [facility] Address: [address] [place], [place] [address] Performed By: #### 5 7021-8 ####[facility] LABCLIA [id number] [place] [address] [place] RBC (Bld) [#/Vol] 4.51 10*6/uL Normal 4.20-6.00 [facility] Comment on above: Order Comment: Speci men Type: BLOOD SPECIMENOrdering Facility: [facility] Address: [address] Performed By: #### 5 7021-8 ####[facility] LABCLIA [id number] [place] [address] [place] WBC (Bld) [#/Vol] 5.83 10*3/uL Normal 3.70-11.00 [facility] Comment on above: Order Comment: Speci men Type: BLOOD SPECIMENOrdering Facility: [facility] Address: [address] [place], [place] [address] Performed By: #### 5 7021-8 ####[facility] LABCLIA [id number] [facility] [address] [place] [address] [place] CNOVSPon 04-09-2022 CNOVSP Visit (SP) Office ([facility]) ----- YEFRI YANEZ ([id number]) 1965 M [facility] Date Time Provider Department 04/09/22 11:00 AM HAYLEE WILBURN [facility] During your visit today, we recorded the following information about you: Temperature Pulse Respiration Blood pressure 98.1 degrees 116/minute 16/minute 163/86 Weight 124.3 kg Haylee Wilburn MD 04/09/2022 4:21 PM Signed [facility] Progress Note SERVICE DATE: April 09, [...] started treatment with cabo + nivo on [facility] 1820 Trial on 08/08/2021 at [facility]. He has baseline HTN and developed worsening HTN after starting treatment. His cabo was held on 08/18/2021, resumed on 09/11/2021. The Nivo was held on 09/11/21 due to pneumonitis, and prednisone 60 mg daily was started and tapered off within about one month. Due to insurance change, he was taken off the trial and referred to [facility] On[facility]. All treatments were supposed to be [...] radical nephrectomy by Dr. Aravind Hernandez at [facility] in [facility] on 02/06/2022. PATHOLOGY: -Renal cell carcinoma, clear-cell type, 5.3 x 3.0 x 2.7 cm, ISUP nuclear grade 3. -Carcinoma invades renal vein and lurdes-nephritic adipose tissue. -Margins of resection are negative for carcinoma. -Lymphovascular invasion not identified. -Regional lymph nodes not submitted. -[id number]. 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 He denies pain in the chest wall [...] sulf (more content not included)... Normal [facility] Comprehensive metabolic 2000 panelon 04-09-2022 Albumin [Mass/Vol] 3.5 g/dL Normal 3.2-5.0 [facility] Comment on above: Order Comment: Aaliyah gibson Type: BLOOD SPECIMENOrdering Facility: [facility] Address: [address] [place] [address] Performed By: #### 2 4323-8, 3016-3 ####[facility] LABORATORYCLIA [id number] [place] [address] [place] ALP [Catalytic activity/Vol] 86 U/L Normal 45-117 [facility] Comment on above: Order Comment: Aaliyah gibson Type: BLOOD SPECIMENOrdering Facility: [facility] Address: [address] [address] Performed By: #### 2 4323-8, 3016-3 ####[facility] LABORATORYCLIA [id number] [place] [address] [place] ALT [Catalytic activity/Vol] 45 U/L Normal 13-61 [facility] Comment on above: Order Comment: Speci men Type: BLOOD SPECIMENOrdering Facility: [facility] Address: [address] [address] Result Comment: Resu lts may be falsely depressed after the administration of Sulfasalazine and/or Sulfapyridine. Performed By: #### 2 4323-8, 6-3 ####[facility] LABORATORYCLIA [id number] [address] [place] Anion gap [Moles/Vol] 6 mmol/L Normal 5-16 [facility] Comment on above: Order Comment: Speci men Type: BLOOD SPECIMENOrdering Facility: [facility] Address: [address] [place] [address] Performed By: #### 2 4323-8, 6-3 ####[facility] LABORATORYCLIA [id number] [address] [place] AST [Catalytic activity/Vol] 40 U/L High 8-34 [facility] Comment on above: Order Comment: Speci men Type: BLOOD SPECIMENOrdering Facility: [facility] Address: [address] [address] Result Comment: Resu lts may be falsely depressed after the administration of Sulfasalazine and/or Sulfapyridine. Performed By: #### 2 4323-8, 3016-3 ####[facility] LABORATORYCLIA [id number] [place] [address] [place] Bilirubin [Mass/Vol] 0.5 mg/dL Normal 0.2-1.0 [facility] Comment on above: Order Comment: Speci men Type: BLOOD SPECIMENOrdering Facility: [facility] Address: [address] [place] [address] Performed By: #### 2 4323-8, 3015-3 ####[facility] LABORATORYCLIA [id number] [place] [address] [place] Calcium [Mass/Vol] 9.5 mg/dL Normal 8.5-10.5 [facility] Comment on above: Order Comment: Speci men Type: BLOOD SPECIMENOrdering Facility: [facility] Address: [address] [place] [address] Performed By: #### 2 4323-8, 3015-05 ####[facility] LABORATORYCLIA [id number] [place] [address] [place] Chloride [Moles/Vol] 106 mmol/L Normal 98-107 [facility] Comment on above: Order Comment: Speci men Type: BLOOD SPECIMENOrdering Facility: [facility] Address: [address] [place] [address] Performed By: #### 2 4323-8, 3015-05 ####[facility] LABORATORYCLIA [id number] [place] [address] [place] CO2 [Moles/Vol] 30 mmol/L Normal 21-32 [facility] Comment on above: Order Comment: Speci men Type: BLOOD SPECIMENOrdering Facility: [facility] Address: [address] [place] [address] Performed By: #### 2 4323-8, 3 ####[facility] LABORATORYCLIA [id number] [place] [address] [place] Creatinine [Mass/Vol] 1.57 mg/dL High 0.50-1.40 [facility] Comment on above: Order Comment: Speci men Type: BLOOD SPECIMENOrdering Facility: [facility] Address: [address] [place] [address] Result Comment: Hyun ents receiving either N-Acetylcysteine (NAC) or Metamizole prior to venipuncture, may have falsely depressed results. Performed By: #### 2 4323-8, 3015-3 ####[facility] LABORATORYCLIA [id number] [place] [id number] [place] ESTIMATED GLOMERULAR FILTRATION RATE 51 mL/min/1.73m??? Low >=60 [facility] Comment on above: Order Comment: Aaliyah gibson Type: BLOOD SPECIMENOrdering Facility: [facility] Address: [address] [place] [address] Result Comment: Laurita mated Glomerular Filtration Rate [...] GFR. Performed By: #### 2 4323-8, 6-3 ####[facility] LABORATORYCLIA [id number] [place] [address] [place] Glucose [Mass/Vol] 132 mg/dL High 70-100 [facility] Comment on above: Order Comment: Aaliyah gibson Type: BLOOD SPECIMENOrdering Facility: [facility] Address: [address] [place] [address] Result Comment: The [place] Diabetes Association (ADA) provides guidance for cutoff [...] Standards of Medical Care in Diabetes 2016, [place] [employer]. Diabetes Care. 2016.39(Suppl 1). Results may be falsely elevated after the administration of Sulfapyridine. Results may be falsely depressed after the administration of Sulfasalazine. Performed By: #### 2 4323-8, 6-3 ####[facility] LABORATORYCLIA [id number] [place] [id number] [place] Potassium [Moles/Vol] 3.7 mmol/L Normal 3.5-5.1 [facility] Comment on above: Order Comment: Speci men Type: BLOOD SPECIMENOrdering Facility: [facility] Address: [address] [place] [address] Performed By: #### 2 4323-8, 6-3 ####[facility] LABORATORYCLIA [id number] [place] [address] [place] Protein [Mass/Vol] 6.7 g/dL Normal 6.0-8.5 [facility] Comment on above: Order Comment: Speci men Type: BLOOD SPECIMENOrdering Facility: [facility] Address: [address] [place] [address] Performed By: #### 2 4323-8, 3 ####[facility] LABORATORYCLIA [id number] [address] [place] Sodium [Moles/Vol] 142 mmol/L Normal 136-145 [facility] Comment on above: Order Comment: Speci men Type: BLOOD SPECIMENOrdering Facility: [facility] Address: [address] [place] [address] Performed By: #### 2 4323-8, 3 ####[facility] LABORATORYCLIA [id number] [place] [address] [place] Urea nitrogen [Mass/Vol] 17 mg/dL Normal 7-26 [facility] Comment on above: Order Comment: Speci men Type: BLOOD SPECIMENOrdering Facility: [facility] Address: [address] [place] [address] Performed By: #### 2 4323-8, 6-3 ####[facility] LABORATORYCLIA [id number] [place] [address] [place] TSH SerPl-aCncon 04-09-2022 TSH Qn 2.848 m[IU]/L Normal 0.358-3.74 0 [facility] Comment on above: Order Comment: Speci men Type: BLOOD SPECIMENOrdering Facility: [facility] Address: [address], [place] [address] Result Comment: 3rd generation ultra sensitive TSH. Performed By: #### 2 4323-8, 3016-3 ####[facility] LABORATORYCLIA [id number] [place] [address] [place] Office Visit (Urology)on [...] between urology, medical oncology, radiation oncology at [facility] was local therapy to metastatic sites and cytoreductive nephrectomy. 12/08/2021-echo with EF 35%, LV and RV enlargement and hypokinesis 12/26/2021-patient completed radiation to chest wall and L4 lesion Patient has remained on cabo Patient was scheduled for nephrectomy with Dr. Adriana Hodge, due to insurance issues patient could not be operated on at [facility], referred to co for nephrectomy. 01/19/2022-patient scheduled for laparoscopic nephrectomy 02/0301/20/2022-patient presented to [facility] with shortness of breath 01/27/2022-patient presented to [facility] with persistence of subjective dyspnea, expiratory wheezing 01/29/2022-patient represented to [facility] ED with chest tightness and shortness of [...] today -[facility] records -Follow-up CT scans per Dr. Wilburn -Labs with Dr. Wilburn as well, renal function was good on discharge from hospital -Follow-up with me in 3 months Chief Complaint Metastatic kidney cancer History of Present [id number] male referred to me for cytoreductive nephrectomy [...] between urology, medical oncology, radiation oncology at [facility] was local therapy to metastatic sites and cytoreductive nephrectomy. 12/08/2021-echo with EF 35%, LV and RV enlargement and hypokinesis 12/26/2021-patient completed radiation to chest wall and L4 lesion Patient has remained on cabo Patient was scheduled for nephrectomy with Dr. Adriana Hodge, due to insurance issues patient could not be operated on at [facility], referred to co for nephrectomy. 01/19/2022-patient scheduled for laparoscopic nephrectomy 02/0301/20/2022-patient presented to [facility] with shortness of breath 01/27/2022-patient presented to [facility] with persistence of subjective dyspnea, expiratory wheezing 01/29/2022-patient represented to [facility] with chest tightness and shortness of breath. Diagnosed with CHF and pneumonia. He was prescribed cefdinir 300 mg p.o. twice daily x7 days, Lasix 40 mg daily p.o. for 14 days. 02/02/2022-canceled nephrectomy for 02/03. Called patient to discuss, subjectively feels back to baseline follow (more content not included)... Normal [employer] CNPNon 04-02-2022 [facility] Telephone ([facility]) ----- YEFRI YANEZ ([id number]) 1965 M [facility] Date Time Provider Department 04/02/22 AMERICA SCHWARTZ [facility] During your visit today, we recorded the [...] by this patient by: SPOUSE Safia Carr, [facility] Problem List As Of Date 04/02/2022 Noted [...] Status:Closed by AMERICA SCHWARTZ on 04/02/22 [facility] CNPN Telephone ([facility]) ----- YEFRI YANEZ ([id number]) 1965 M [facility] Date Time Provider Department 04/02/22 HAYLEE WILBURN [facility] During your visit today, we recorded the [...] by this patient by: SPOUSE Safia Carr, [facility] Problem List As Of Date 04/02/2022 Noted [...] Status:Closed by DONAVON EASTMAN on 04/02/22 [facility] CT ABD/PEL W IVCONon 023 CT ABD/PEL W IVCON * * *Final Report* * * DATE OF EXAM: Mar 26 2022 10:14AM [facility] 0530 - CT ABD/PEL W IVCON / PROCEDURE REASON: Renal cell carcinoma of right kidney (HCC) * * * * Physician Interpretation * * * * EXAMINATION: CT ABDOMEN AND PELVIS WITH IV CONTRAST CLINICAL HISTORY: Renal cell carcinoma of the right kidney. Status post interval robotic right radical nephrectomy at [facility]. TECHNIQUE: CT of the abdomen and [...] chest CT performed will be reported separately. Fire Prevention Engineer (topogram) images: No additional findings. IMPRESSION: Interval right nephrectomy with change in the nephrectomy bed favored to be postoperative. No definite recurrence. Decrease in size of lytic metastasis centered in the posterior elements of L4. No new abdominopelvic metastasis. Stable aortic and bilateral common iliac artery aneurysms. Horticulture Superintendent: PSCB Transcribe Date/Time: Mar 28 2022 9:47A Dictated by : JOSE MARIA MADSEN MD This examination was interpreted and the report reviewed and electronically signed by: JOSE MARIA MADSEN MD on Mar 28 2022 9:57AM EST [id number] [facility] CT CHEST W IVCONon 3 CT CHEST W IVCON * * *Final Report* * * DATE OF EXAM: Mar 26 2022 10:14AM [facility] 0539 - CT CHEST W IVCON [...] No abnormality in the imaged upper abdomen. Fire Prevention Engineer (topogram) images: No additional findings. IMPRESSION: New small patchy infiltrates in the lateral right middle and lower lobes. Interval decrease in size right sixth rib expansile metastasis. Stable 1.3 cm right paratracheal lymph node. No new lymphadenopathy. Atherosclerotic calcification of the aorta and coronary arteries. Ectasia of the ascending thoracic aorta. _ Horticulture Superintendent: [facility] Transcribe Date/Time: Mar 29 2022 12:00P Dictated by : YEFRI MORRIS MD This examination was interpreted and the report reviewed and electronically signed by: YEFRI MORRIS MD on Mar 29 2022 10:12PM EST [id number] [facility] ----- YEFRI YANEZ ([id number]) 1965 M [facility] Date Time Provider Department 03/25/22 HAYLEE WILBURN [facility] During your visit today, we recorded the following information about you: Tania Parekh RN 03/25/2022 9:12 AM Signed Patient called stating his insurance is not approved for our office and that Dr. Wilburn needs to place a Referral for Nathaniel. I reminded him that last week he called me telling me that his insurance is making him go to [facility] for the scans and not [facility] and do not understand how he could [...] Fully Assessed Reason for Visit: Appointment [186] Fine Grader - Other [3602] Prescriptions as of 03/25/2022 [...] by this patient by: SPOUSE Safia Carr, [facility] Problem List As Of Date 03/25/2022 Noted [...] Status:Closed by TANIA PAREKH on 03/25/22 [facility] CNPN Telephone ([facility]) ----- YEFRI YANEZ ([id number]) 1965 M [facility] Date Time Provider Department 03/25/22 HAYLEE WILBURN [facility] During your visit today, we recorded the following information about you: Venita Mistryman 03/25/2022 9:23 AM Signed Per chat from RN TLP, yesica pt visit and possible tx from today to 04/02. Pt keeps calling to say that he is not apporved to be seen here and his insurance told him to go to [facility]. I have discussed several times with pt [...] by this patient by: SPOUSE Safia Carr, [facility] Problem List As Of Date 03/25/2022 Noted [...] Encounter Status:Closed by VENITA POLLOCK on 03/25/22 [facility] BONE WHOLE BODYon 023 NM BONE [...] right anterior sixth rib and L4 vertebra. Horticulture Superintendent: PSCB Transcribe Date/Time: Mar 23 2022 12:12P Dictated by : NASREEN QUINTANA MD This examination was interpreted and the report reviewed and electronically signed by: NASREEN QUINTANA MD on Mar 23 2022 12:18PM EST [id number] [facility] CNPNon 03-12-2022 CNPN Telephone ([facility]) ----- YEFRI YANEZ ([id number]) 1965 M [facility] Date Time Provider Department 03/12/22 AMERICA SCHWARTZ [facility] During your visit today, we recorded the following information about you: Octavio Schwartz RN 03/12/2022 11:04 AM Signed LMOM with the appointment dates, times and location of upcoming bone scan and CT scans. Bone scan 03/23/22 at 830 am here at the [facility]. CT scans at [facility] 03/24/22 at 1pm. America Schwartz [...] by this patient by: SPOUSE Safia Carr, [facility] Problem List As Of Date 03/12/2022 Noted [...] Status:Closed by AMERICA SCHWARTZ on 03/16/22 [facility] CNOVSPon 03-11-2022 CNOVSP Visit (SP) Office ([facility]) ----- YEFRI YANEZ ([id number]) 1965 M [facility] Date Time Provider Department 03/11/22 1:00 PM HAYLEE WILBURN [facility] During your visit today, we recorded the following information about you: Pulse Respiration Blood pressure Weight 78/minute 16/minute 134/84 118.8 kg Haylee Wilburn MD 03/11/2022 4:16 PM Signed [facility] Progress Note SERVICE DATE: March 11, [...] started treatment with cabo + nivo on [facility] 1820 Trial on 08/08/2021 at [facility]. He has baseline HTN and developed worsening HTN after starting treatment. His cabo was held on 08/18/2021, resumed on 09/11/2021. The Nivo was held on 09/11/21 due to pneumonitis, and prednisone 60 mg daily was started and tapered off within about one month. Due to insurance change, he was taken off the trial and referred to [facility] to resume the treatment. He was scheduled to have nephrectomy on 11/04/21, but delayed due to his back pain. He underwent palliative XRT to L3-L5 (2,000 cGy in 5 fx), completed 12/26/21). He underwent da Farzad assisted robotic right radical nephrectomy at [facility] in [facility]. I do not have the official pathology report yet. We have made multiple requests to [facility] for the surgical pathology, to [...] tablet (more content not included)... Normal [facility] ECHO LIMITEDon 02-26-2022 CONCLUSIONS: - Exam [...] Final * * * [facility] Echocardiography Report: [facility] Date of service: 02/26/2022 8:14:13 AM Ordering physician: SAYRA TELLO Indication: Cardiomyopathy Technologist: Sybil Craft [facility] Interpreting physician: Sayra Tello MD PATIENT: [...] valve regurgitation. PERICARDIUM The pericardium is normal. [facility] ECHO LIMITED Echocardiography Rep ort: [facility] Date of service: 02/26/2022 8:14:13 AM Ordering physician: SAYRA TELLO Indication: Cardiomyopathy Technologist: Sybil Craft [facility] Interpreting physician: Sayra Tello MD PATIENT: [...] * * * Final * * * [employer] [facility] Image : [id number] [facility] Dougie 02-19-2022 SERGEY Telephone ([employer]) ----- RENATAYEFRI ([id number]) 1965 M [facility] Date Time Provider Department 02/19/22 [...] [I50.9] Order(s):BASIC METABOLIC PNL [SQBMP] Order #: [id number] FUTURE Prescriptions as of 02/22/2022 - torsemide [...] by this patient by: SPOUSE Safia Carr, [facility] Problem List As Of Date 02/19/2022 Noted [...] Encounter Status:Closed by SAYRA TELLO on 02/22/22 [facility] 02-18-2022 CNPN Telephone (CARMOB) ----- YEFRI YANEZ ([id number]) 1965 [facility] Date Time Provider Department 02/18/22 SAYRA [...] by this patient by: SPOUSE Safia Carr, [facility] Problem List As Of Date 02/18/2022 Noted [...] Encounter Status:Closed by RACHEL TREVINO on 02/18/22 [facility] CBC W Auto Differential pane l (Bld)on 02-17-2022 Basophils (Bld) [#/Vol] 10*3/uL Normal <0.11 [facility] Comment on above: Order Comment: Speci men Type: BLOOD SPECIMENOrdering Facility: [facility] Address: [place] [address] Performed By: #### 5 7021-8 ####[facility] ON[facility] LABCLIA [id number] [address] [place] Basophils/100 WBC (Bld) 0.2 % Normal M [facility] Comment on above: Order Comment: Speci men Type: BLOOD SPECIMENOrdering Facility: [facility] Address: [address] [place] [address] Performed By: #### 5 7021-8 ####[facility] LABCLIA [id number] [place] [address] [place] Differential cell count method Nom (Bld) Auto Normal [facility] Comment on above: Order Comment: Speci men Type: BLOOD SPECIMENOrdering Facility: [facility] Address: [address] [place] [address] Performed By: #### 5 7021-8 ####[facility] LABCLIA [id number] [place] [address] [place] Eosinophils (Bld) [#/Vol] 0.04 10*3/uL Normal <0.46 [facility] Comment on above: Order Comment: Speci men Type: BLOOD SPECIMENOrdering Facility: [facility] Address: [address] [place] [address] Performed By: #### 5 7021-8 ####[facility] LABCLIA [id number] [place] [address] [place] Eosinophils/100 WBC (Bld) 1.0 % Normal [facility] Comment on above: Order Comment: Speci men Type: BLOOD SPECIMENOrdering Facility: [facility] Address: [address] [place] [address] Performed By: #### 5 7021-8 ####[facility] LABCLIA [id number] [place] [address] [place] Erythrocyte distribution width (RBC) [Ratio] 17.0 % High 11.5-15.0 [facility] Comment on above: Order Comment: Speci men Type: BLOOD SPECIMENOrdering Facility: [facility] Address: [address] [place] [address] Performed By: #### 5 7021-8 ####[facility] LABCLIA [id number] [place] [address] [place] Hematocrit (Bld) [Volume fraction] 47.4 % Normal 39.0-51.0 [facility] Comment on above: Order Comment: Speci men Type: BLOOD SPECIMENOrdering Facility: [facility] Address: [address] [place] [address] Performed By: #### 5 7021-8 ####[facility] LABCLIA [id number] [place] [address] [place] Hemoglobin (Bld) [Mass/Vol] 15.7 g/dL Normal 13.0-17.0 [facility] Comment on above: Order Comment: Speci men Type: BLOOD SPECIMENOrdering Facility: [facility] Address: [address] [place] [address] Performed By: #### 5 7021-8 ####[facility] LABCLIA [id number] [place] [address] [place] Immature granulocytes (Bld) [#/Vol] 10*3/uL Normal <0.10 [facility] Comment on above: Order Comment: Speci men Type: BLOOD SPECIMENOrdering Facility: [facility] Address: [address] [place] [address] Performed By: #### 5 7021-8 ####[facility] LABCLIA [id number] [place] [address] [place] Immature granulocytes/100 WBC (Bld) 0.5 % Normal [facility] Comment on above: Order Comment: Speci men Type: BLOOD SPECIMENOrdering Facility: [facility] Address: [address] [place] [address] Performed By: #### 5 7021-8 ####[facility] LABCLIA [id number] [place] [address] [place] Lymphocytes (Bld) [#/Vol] 0.75 10*3/uL Low 1.00-4.00 [facility] Comment on above: Order Comment: Speci men Type: BLOOD SPECIMENOrdering Facility: [facility] Address: [address] [place], [place] [address] Performed By: #### 5 7021-8 ####[facility] LABCLIA [id number] [address] [place] Lymphocytes/100 WBC (Bld) 18.2 % Normal [facility] Comment on above: Order Comment: Speci men Type: BLOOD SPECIMENOrdering Facility: [facility] Address: [address] [place] [address] Performed By: #### 5 7021-8 ####[facility] LABCLIA [id number] [address] OF [place] MCH (RBC) [Entitic mass] 30.7 pg Normal 26.0-34.0 [facility] Comment on above: Order Comment: Speci men Type: BLOOD SPECIMENOrdering Facility: [facility] Address: [address] [place] [address] Performed By: #### 5 7021-8 ####[facility] LABCLIA [id number] [address] [place] MCHC (RBC) [Mass/Vol] 33.1 g/dL Normal 30.5-36.0 [facility] Comment on above: Order Comment: Speci men Type: BLOOD SPECIMENOrdering Facility: [facility] Address: [address] [place] [address] Performed By: #### 5 7021-8 ####[facility] LABCLIA [id number] [address] [place] MCV (RBC) [Entitic vol] 92.8 fL Normal 80.0-100.0 [facility] Comment on above: Order Comment: Speci men Type: BLOOD SPECIMENOrdering Facility: [facility] Address: [address] [place] [address] Performed By: #### 5 7021-8 ####[facility] LABCLIA [id number] [address] [place] Monocytes (Bld) [#/Vol] 0.30 10*3/uL Normal <0.87 [facility] Comment on above: Order Comment: Speci men Type: BLOOD SPECIMENOrdering Facility: [facility] Address: [address] [place] [address] Performed By: #### 5 7021-8 ####[facility] LABCLIA [id number] [place] [address] [place] Monocytes/100 WBC (Bld) 7.3 % Normal [facility] Comment on above: Order Comment: Speci men Type: BLOOD SPECIMENOrdering Facility: [facility] Address: [address] [address] Performed By: #### 5 7021-8 ####[facility] LABCLIA [id number] [place] [address] [place] Neutrophils (Bld) [#/Vol] 3.00 10*3/uL Normal 1.45-7.50 [facility] Comment on above: Order Comment: Speci men Type: BLOOD SPECIMENOrdering Facility: [facility] Address: [address] Performed By: #### 5 7021-8 ####[facility] LABCLIA [id number] [place] [address] [place] Neutrophils/100 WBC (Bld) 72.8 % Normal [facility] Comment on above: Order Comment: Speci men Type: BLOOD SPECIMENOrdering Facility: [facility] Address: [address] Performed By: #### 5 7021-8 ####[facility] LABCLIA [id number] [place] [address] [place] Platelet mean volume (Bld) [Entitic vol] 10.0 fL Normal 9.0-12.7 [facility] Comment on above: Order Comment: Speci men Type: BLOOD SPECIMENOrdering Facility: [facility] Address: [address] [place], [place] [address] Performed By: #### 5 7021-8 ####[facility] LABCLIA [id number] [place] [address] [place] Platelets (Bld) [#/Vol] 359 10*3/uL Normal 150-400 [facility] Comment on above: Order Comment: Speci men Type: BLOOD SPECIMENOrdering Facility: [facility] Address: [address] [place] [address] Performed By: #### 5 7021-8 ####[facility] LABCLIA [id number] [place] [address] [place] RBC (Bld) [#/Vol] 5.11 10*6/uL Normal 4.20-6.00 [facility] Comment on above: Order Comment: Speci men Type: BLOOD SPECIMENOrdering Facility: [facility] Address: [address] [place] [address] Performed By: #### 5 7021-8 ####[facility] LABCLIA [id number] [place] [address] [place] WBC (Bld) [#/Vol] 4.12 10*3/uL Normal 3.70-11.00 [facility] Comment on above: Order Comment: Speci men Type: BLOOD SPECIMENOrdering Facility: [facility] Address: [address] [place] [address] Performed By: #### 5 7021-8 ####[facility] LABCLIA [id number] [place] [address] [place] Basophils (Bld) [#/Vol] <0.11 k/uL [facility] Basophils/100 WBC (Bld) 0.2 % [facility] Differential cell count method Nom (Bld) Auto [facility] Eosinophils (Bld) [#/Vol] 0.04 10*3/uL <0.46 k/uL [facility] Eosinophils/100 WBC (Bld) 1.0 % [facility] Erythrocyte distribution width (RBC) [Ratio] 17.0 % High 11.5 - 15.0 % [facility] Hematocrit (Bld) [Volume fraction] 47.4 % 39.0 - 51.0 % [facility] Hemoglobin (Bld) [Mass/Vol] 15.7 g/dL 13.0 - 17.0 g/dL [facility] Immature granulocytes (Bld) [#/Vol] <0.10 k/uL [facility] Immature granulocytes/100 WBC (Bld) 0.5 % [facility] Lymphocytes (Bld) [#/Vol] 0.75 10*3/uL Low 1.00 - 4.00 k/uL [facility] Lymphocytes/100 WBC (Bld) 18.2 % [facility] MCH (RBC) [Entitic mass] 30.7 pg 26.0 - 34.0 pg [facility] MCHC (RBC) [Mass/Vol] 33.1 g/dL 30.5 - 36.0 g/dL [facility] MCV (RBC) [Entitic vol] 92.8 fL 80.0 - 100.0 fL [facility] Monocytes (Bld) [#/Vol] 0.30 10*3/uL <0.87 k/uL [facility] Monocytes/100 WBC (Bld) 7.3 % C [facility] Neutrophils (Bld) [#/Vol] 3.00 10*3/uL 1.45 - 7.50 k/uL [facility] Neutrophils/100 WBC (Bld) 72.8 % [facility] Platelet mean volume (Bld) [Entitic vol] 10.0 fL 9.0 - 12.7 fL [facility] Platelets (Bld) [#/Vol] 359 10*3/uL 150 - 400 k/uL [facility] RBC (Bld) [#/Vol] 5.11 10*6/uL 4.20 - 6.00 m/uL [facility] WBC (Bld) [#/Vol] 4.12 10*3/uL 3.70 - 11.00 k/uL [facility] CNOVSPon 02-17-2022 CNOVSP Visit (SP) Office ([facility]) ----- YEFRI YANEZ ([id number]) 1965 M [facility] Date Time Provider Department 02/17/22 11:30 AM HAYLEE WILBURN [facility] During your visit today, we recorded the following information about you: Pulse Respiration Blood pressure Weight 72/minute 16/minute 132/74 114.8 kg Haylee Wilburn MD 02/17/2022 5:25 PM Signed [facility] Progress Note SERVICE DATE: February 17, [...] started treatment with cabo + nivo on [facility] 1820 Trial on 08/08/2021 at [facility]. He has baseline HTN and developed worsening HTN after starting treatment. His cabo was held on 08/18/2021, resumed on 09/11/2021. The Nivo was held on 09/11/21 due to pneumonitis, and prednisone 60 mg daily was started and tapered off within about one month. Due to insurance change, he was taken off the trial and referred to [facility] to resume the treatment. He was scheduled to have nephrectomy on 11/04/21, but delayed due to his back pain and palliative XRT to L3-L5 (2,000 cGy in 5 fx, completed 12/26/21). His back pain has resolved. He underwent da Farzad assisted robotic right radical nephrectomy at [facility] in [facility]. I do not have the official [...] diarrhe (more content not included)... Normal [facility] Comprehensive metabolic 2000 panelon 02-17-2022 Albumin [Mass/Vol] 3.5 g/dL Normal 3.2-5.0 [facility] Comment on above: Order Comment: Speci paige Type: BLOOD SPECIMENOrdering Facility: [facility] Address: [address] [address] Performed By: #### 2 4323-8 ####[facility] LABORATORYCLIA [id number] [place] [address] [place] ALP [Catalytic activity/Vol] 107 U/L Normal 45-117 [facility] Comment on above: Order Comment: Speci paige Type: BLOOD SPECIMENOrdering Facility: [facility] Address: [address] [id number] Performed By: #### 2 4323-8 ####[facility] LABORATORYCLIA [id number] [place] [address] [place] ALT [Catalytic activity/Vol] 102 U/L High 13-61 [facility] Comment on above: Order Comment: Ronyi paige Type: BLOOD SPECIMENOrdering Facility: [facility] Address: [address] [address] Result Comment: Resu lts may be falsely depressed after the administration of Sulfasalazine and/or Sulfapyridine. Performed By: #### 2 4323-8 ####[facility] LABORATORYCLIA [id number] [address] STATES [facility] Anion gap [Moles/Vol] 9 mmol/L Normal 5-16 [facility] Comment on above: Order Comment: Speci men Type: BLOOD SPECIMENOrdering Facility: [facility] Address: [address] [address] Performed By: #### 2 4323-8 ####[facility] LABORATORYCLIA [id number] [address] STATES OF [facility] AST [Catalytic activity/Vol] 62 U/L High 8-34 [facility] Comment on above: Order Comment: Speci men Type: BLOOD SPECIMENOrdering Facility: [facility] Address: [address] [place] [address] Result Comment: Resu lts may be falsely depressed after the administration of Sulfasalazine and/or Sulfapyridine. Performed By: #### 2 4323-8 ####[facility] LABORATORYCLIA [id number] [address] STATES OF [facility] Bilirubin [Mass/Vol] 0.4 mg/dL Normal 0.2-1.0 [facility] Comment on above: Order Comment: Speci men Type: BLOOD SPECIMENOrdering Facility: [facility] Address: [address] [place] [address] Performed By: #### 2 4323-8 ####[facility] LABORATORYCLIA [id number] [address] STATES OF [facility] Calcium [Mass/Vol] 9.5 mg/dL Normal 8.5-10.5 [facility] Comment on above: Order Comment: Speci men Type: BLOOD SPECIMENOrdering Facility: [facility] Address: [address] [place] [address] Performed By: #### 2 4323-8 ####[facility] LABORATORYCLIA [id number] [place] [address] [place] Chloride [Moles/Vol] 103 mmol/L Normal 98-107 [facility] Comment on above: Order Comment: Aaliyah gibson Type: BLOOD SPECIMENOrdering Facility: [facility] Address: [address] [address] Performed By: #### 2 4323-8 ####[facility] LABORATORYCLIA [id number] [place] [address] [place] CO2 [Moles/Vol] 27 mmol/L Normal 21-32 [facility] Comment on above: Order Comment: Speci men Type: BLOOD SPECIMENOrdering Facility: [facility] Address: [address] [address] Performed By: #### 2 4323-8 ####[facility] LABORATORYCLIA [id number] [address] [place] Creatinine [Mass/Vol] 1.96 mg/dL High 0.50-1.40 [facility] Comment on above: Order Comment: Aaliyah men Type: BLOOD SPECIMENOrdering Facility: [facility] Address: [address] [place] [address] Result Comment: Hyun ents receiving either N-Acetylcysteine (NAC) or Metamizole prior to venipuncture, may have falsely depressed results. Performed By: #### 2 4323-8 ####[facility] LABORATORYCLIA [id number] [place] [address] [place] ESTIMATED GLOMERULAR FILTRATION RATE 39 mL/min/1.73m??? Low >=60 [facility] Comment on above: Order Comment: Aaliyah paige Type: BLOOD SPECIMENOrdering Facility: [facility] Address: [address] [place] [address] Result Comment: Laurita mated Glomerular Filtration Rate [...] actual GFR. Performed By: #### 2 4323-8 ####[facility] LABORATORYCLIA [id number] [place] [address] [place] Glucose [Mass/Vol] 114 mg/dL High 70-100 [facility] Comment on above: Order Comment: Speci men Type: BLOOD SPECIMENOrdering Facility: [facility] Address: [address] [place] [address] Result Comment: The [place] Diabetes Association (ADA) provides guidance for cutoff [...] Standards of Medical Care in Diabetes 2016, [place] [employer]. Diabetes Care. 2016.39(Suppl 1). Results may be falsely elevated after the administration of Sulfapyridine. Results may be falsely depressed after the administration of Sulfasalazine. Performed By: #### 2 4323-8 ####[facility] LABORATORYCLIA [id number] [place] [address] [place] Potassium [Moles/Vol] 4.7 mmol/L Normal 3.5-5.1 [facility] Comment on above: Order Comment: Speci men Type: BLOOD SPECIMENOrdering Facility: [facility] Address: [address] [address] Performed By: #### 2 4323-8 ####[facility] LABORATORYCLIA [id number] [place] [address] [place] Protein [Mass/Vol] 7.2 g/dL Normal 6.0-8.5 [facility] Comment on above: Order Comment: Speci men Type: BLOOD SPECIMENOrdering Facility: [facility] Address: [address] [address] Performed By: #### 2 4323-8 ####[facility] LABORATORYCLIA [id number] [place] [address] [place] Sodium [Moles/Vol] 139 mmol/L Normal 136-145 [facility] Comment on above: Order Comment: Speci men Type: BLOOD SPECIMENOrdering Facility: [facility] Address: [address] [phone] Performed By: #### 2 4323-8 ####[facility] LABORATORYCLIA [id number] [place] [address] [place] Urea nitrogen [Mass/Vol] 23 mg/dL Normal 7-26 [facility] Comment on above: Order Comment: Speci men Type: BLOOD SPECIMENOrdering Facility: [facility] Address: [address] [place] [address] Performed By: #### 2 4323-8 ####[facility] LABORATORYCLIA [id number] [place] [address] [place] Albumin [Mass/Vol] 3.5 g/dL 3.2 - 5.0 g/dL [facility] ALP [Catalytic activity/Vol] 107 U/L 45 - 117 U/L [facility] ALT [Catalytic activity/Vol] 102 U/L High 13 - 61 U/L [facility] Anion gap [Moles/Vol] 9 mmol/L 5 - 16 mmol/L [facility] AST [Catalytic activity/Vol] 62 U/L High 8 - 34 U/L [facility] Bilirubin [Mass/Vol] 0.4 mg/dL 0.2 - 1 .0 mg/dL [facility] Calcium [Mass/Vol] 9.5 mg/dL 8.5 - 10. 5 mg/dL [facility] Chloride [Moles/Vol] 103 mmol/L 98 - 10 7 mmol/L [facility] CO2 [Moles/Vol] 27 mmol/L 21 - 32 mmol/L [facility] Creatinine [Mass/Vol] 1.96 mg/dL High 0.50 - 1.40 mg/dL [facility] Estimated Glomerular Filtration Rate 39 mL/min/1.73m Low >=60 mL/min/1.7 3m [facility] Glucose [Mass/Vol] 114 mg/dL High 70 - 100 mg/dL [facility] Potassium [Moles/Vol] 4.7 mmol/L 3.5 - 5.1 mmol/L [facility] Protein [Mass/Vol] 7.2 g/dL 6.0 - 8.5 g/dL [facility] Sodium [Moles/Vol] 139 mmol/L 136 - 145 mmol/L [facility] Urea nitrogen [Mass/Vol] 23 mg/dL 7 - 26 mg/dL [facility] CNOVon 02-16-2022 CNOV Office Visit ([facility] ) ----- YEFRI YANEZ ([id number]) 1965 M [facility] Date Time Provider Department 02/16/22 10:00 AM SAYRA TELLO During your visit today, we recorded the following information about you: Pulse Blood pressure Weight Height 51/minute 90/64 115.7 kg 1.803 m Sayra Tello MD 02/16/2022 11:29 AM Signed [facility] OUTPATIENT VISIT DATE 02/16/2022 OUTPATIENT VISIT TYPE NEW PATIENT PRIMARY CARE PHYSICIAN: Daksha Turner (Tangela) [address] [place] [id number] HISTORY OF PRESENT ILLNESS: 57-year-old male CAD, [...] vaping sometimes tobacco. 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 PAST MEDICAL HISTORY Diagnosis Date Abdominal [...] A DAY cyclobenzapr (more content not included)... [facility] ([facility] ) ----- YEFRI YANEZ ([id number]) 1965 M [facility] Date Time Provider Department 02/13/22 2:00 PM [facility] During your visit today, we recorded the following information about you: Temperature Pulse Respiration Blood pressure 98.2 degrees 64/minute 22/minute 138/87 Weight 119.7 kg Suman Peterson, KEYUR.BELLOWS FILLER 02/13/2022 2:41 PM Signed Radiation Oncology - [...] RN (more content not included)... Normal [facility] CBCon 02-10-2022 Erythrocyte distribution width (RBC) [Ratio] 18.6 % High 11.5 - 14.5 [facility] Comment on above: Performed By: #### C BC #### [address] [address] Hematocrit (Bld) [Volume fraction] 41.8 % Normal 41.0 - 52.0 [facility] Comment on above: Performed By: #### C BC #### [address] [address] Hemoglobin (Bld) [Mass/Vol] 13.0 g/dL Low 13.5 - 17.5 [facility] Comment on above: Performed By: #### C BC #### [address] [address] MCHC (RBC) [Mass/Vol] 31.1 g/dL Low 32.0 - 36.0 [facility] Comment on above: Performed By: #### C BC #### [address] [address] MCV (RBC) [Entitic vol] 100 fL Normal 80 - 100 [facility] Comment on above: Performed By: #### C BC #### [address] [address] NUCLEATED RBC 0.0 /100 WBC Normal 0.0 - 0.0 [facility] Comment on above: Performed By: #### C BC #### [address] [address] Platelets (Bld) [#/Vol] 162 10*3/uL Normal 150 - 450 [facility] Comment on above: Performed By: #### C BC #### [address] [address] RBC 4.17 x10E12/L Low 4.50 - 5.90 [facility] Comment on above: Performed By: #### C BC #### [facility] [address] [place] [address] WBC (Bld) [#/Vol] 5.5 10*3/uL Normal 4.4 - 11.3 [facility] Comment on above: Performed By: #### C BC #### [facility] [address] [place] [address] Daily Progress Note-Medicine on 02-10-2022 Daily Progress [...] night. Objective Data: Objective Information: T PRBPMAPSpO2 [id number]/87261% Date/Time02/10 8: 8: 8: 8: 8:00 Range(36.1C - 36.6C ) (57 - 80 ) (16 - 20 ) (138 - 167 )/ (91 - 126 ) (94% - 100% ) As of 09-Feb-2022 21:15:00, patient is on 3 L/min of oxygen via room air. Pain reported at 02/10 9:46: 0 = None ---- Intake and Output ----- Mn/Dy/Year TimeIntakeOutputNet Feb 10, 2022 6:00 [id number] Feb 09, 2022 10:00 [id number] Feb 09, 2022 2:00 [id number] The Intake and Output Totals for the last 24 hours are: IntakeOutsanta ana health centerNet [id number] Physical Exam Narrative: Physical Exam: General: Appears [...] 12.5 mg (more content not included)... Normal [facility] Daily Progress Note-Urologyo n [...] overnight. Objective Data: Objective Information: T PRBPMAPSpO2 [id number]% Date/Time02/10 8: 8: 8: 8: 8:00 Range(36.1C - 36.6C ) (57 - 80 ) (16 - 20 ) (138 - 167 )/ (91 - 126 ) (94% - 100% ) As of 09-Feb-2022 21:15:00, patient is on 3 L/min of oxygen via nasal cannula. Pain reported at 02/10 0:00: 0 = None ---- Intake and Output ----- Mn/Dy/Year TimeIntakeOutputNet Feb 10, 2022 6:00 [id number] Feb 09, 2022 10:00 [id number] Feb 09, 2022 2:00 [id number] The Intake and Output Totals for the last 24 hours are: IntakeOutputNet [id number] Physical Exam by System: Constitutional: Well developed, [...] on c (more content not included)... [facility] PT Evaluation v2-physical th eraon 02-10-2022 PT Evaluation v2-physical therapy Rehab: Info: Mode of Treatmentphysical therapy Time IN09:58 Time OUT10:08 Total Treatment [id number] Patient in ... at end of sessionbed, 3 railings up Communicated with ... at end of sessionbedside nurse Patient Effortgood Symptoms Noted During/After Treatmentnone Patient Profile Reviewedyes Onset of Illness/Injury or Date of [id number] Reason for Referralimpaired mobility, gait training, impaired cognition/safety awareness Referring PhysicianDr. Hernandez General Observations of PatientCleared by nursing to work with patient. Pt supine in bed with HOB elevated. Pt in no apparent distress and willing to participate in therapy. RN agreeable to have patient out of bed and into chair. Pertinent History of Current Functional Fryjnri16-gavp-mzv male patient status post laparoscopic right radical [...] ambulate with no device. 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 Pt denies falls. Line and Tubestelemetry Vision/Cognition: Affect/Mental Status (Cognitive)WNL Orientation Status (Cognition)oriented x 4 ROM: Lower Extremity: Range of Motionleft lower extremity ROM WFL; right lower extremity ROM WFL MMT: Lower Extremity: Manual Muscle Testing (MMT)left lower extremity strength WFL; right lower extremity strength WFL Mobility/Tone: Bed Mobility Assessment/Interventionss upine to sit Emsguy-rt-Rqc [place] (Bed Mobility)independent Transfer Assessment/Interventionss it to stand transfer; stand to sit transfer Sit-Stand [place] (Transfers)modified independence Sit-Stand Assistive Device (Transfers)walker, front-wheeled Stand-Sit [place] (Transfers)modified independence Stand-Sit Assistive Device (Transfers)walker, front-wheeled Gait/Stairs Locomotiongait/ambulation assistive device; gait/ambulation independence; distance ambulated Gait Locomotion (Gait)modified independence Assistive Device (Gait Training)walker, front-wheeled Distance in Feet (Gait Training)250 ft WFLs Motor: Sitting, Static (Balance)good balance Sitting, Dynamic (Balance)good balance Wdh-ij-Dfarj (Balance)good balance Standing, Static (Balance)good balance Standing, Dynamic (Balance)good balance Sensory: Pre-Treatment Pain Rating0/10 - no pain Post-Treatment Pain Rating2/10 Comment, Pre/Post Treatment Painsoreness reported at incision site Sensory General Assessmentno sensation deficits identified Health: Observed Emotional Statecooperative; pleasant Plan of Care Reviewed Withpatient Impression: Criteria for Skilled Therapeutic Interventions Met (PT Eval)yes; treatment indicated PT OhlbwxwksC17.2 difficulty walking Physical Therapy Prognosisgood System Pathology/Pathophysiology [...] (PT Eval)5 times/wk Predicted Duration of Therapy Jtojzgwxppke81 days Planned Therapy Interventions (PT Eval)balance training; [...] Total Score22 Short Term Goals: Gait: Established [id number] Gait: Whitmore Level Goalindependent Gait: Distance [id number] ft Gait: Time Frame for Goal2 wks Balance: Established Ba (more content not included)... [facility] RENAL FUNCTION PANELon 02-10 Albumin [Mass/Vol] 3.4 g/dL Normal 3.4 - 5.0 [facility] Comment on above: Performed By: #### C BC #### [address] [place] [address] Anion gap [Moles/Vol] 11 mmol/L Normal 10 - 20 [facility] Comment on above: Performed By: #### C BC #### [address] [address] Calcium [Mass/Vol] 8.5 mg/dL Low 8.6 - 10.3 [facility] Comment on above: Performed By: #### C BC #### [address] [address] Chloride [Moles/Vol] 103 mmol/L Normal 98 - 107 [facility] Comment on above: Performed By: #### C BC #### [address] [address] Creatinine [Mass/Vol] 1.48 mg/dL High 0.50 - 1.30 [facility] Comment on above: Performed By: #### C BC #### [address] [address] GFR/1.73 sq M.predicted among non-blacks MDRD (S/P/Bld) [Vol rate/Area] 54 mL/min/{1.73_m2} Abnormal >90 [facility] Comment on above: Result Comment: CALC ULATIONS OF ESTIMATED GFR ARE PERFORMED USING THE 2020 CKD-EPI STUDY REFIT EQUATION WITHOUT THE RACE VARIABLE FOR THE IDMS-TRACEABLE CREATININE METHODS. https://jasn.asnjournals.org/content//ASN.2020 707589 Performed By: #### C BC #### [address] [address] Glucose [Mass/Vol] 107 mg/dL High 74 - 99 [facility] Comment on above: Performed By: #### C BC #### [address] [address] HCO3 (Bld) [Moles/Vol] 31 mmol/L Normal 21 - 32 [facility] Comment on above: Performed By: #### C BC #### [address] [address] Phosphate [Mass/Vol] 1.5 mg/dL Low 2.5 - 4.9 [facility] Comment on above: Result Comment: The performance characteristics of phosphorus testing in heparinized plasma have been validated by the individual laboratory site where testing is performed. Testing on heparinized plasma is not approved by the FDA; however, such approval is not necessary. Performed By: #### C BC #### [address] [address] Potassium [Moles/Vol] 3.9 mmol/L Normal 3.5 - 5.3 [facility] Comment on above: Performed By: #### C BC #### [address] [address] Sodium [Moles/Vol] 141 mmol/L Normal 136 - 145 [facility] Comment on above: Performed By: #### C BC #### [address] [address] Urea nitrogen [Mass/Vol] 21 mg/dL Normal 6 - 23 [facility] Comment on above: Performed By: #### C BC #### [address] [address] CBCon 02-09-2022 Erythrocyte distribution width (RBC) [Ratio] 19.1 % High 11.5 - 14.5 [facility] Comment on above: Performed By: #### C BC #### [address] [address] Hematocrit (Bld) [Volume fraction] 43.1 % Normal 41.0 - 52.0 [facility] Comment on above: Performed By: #### C BC #### [address] [address] Hemoglobin (Bld) [Mass/Vol] 13.5 g/dL Normal 13.5 - 17.5 [facility] Comment on above: Performed By: #### C BC #### [address] [address] MCHC (RBC) [Mass/Vol] 31.3 g/dL Low 32.0 - 36.0 [facility] Comment on above: Performed By: #### C BC #### [address] [place] [address] MCV (RBC) [Entitic vol] 100 fL Normal 80 - 100 [facility] Comment on above: Performed By: #### C BC #### [address] [place] [address] NUCLEATED RBC 0.0 /100 WBC Normal 0.0 - 0.0 [facility] Comment on above: Performed By: #### C BC #### [address] [address] Platelets (Bld) [#/Vol] 150 10*3/uL Normal 150 - 450 [facility] Comment on above: Performed By: #### C BC #### [address] [address] RBC 4.29 x10E12/L Low 4.50 - 5.90 [facility] Comment on above: Performed By: #### C BC #### [address] [address] WBC (Bld) [#/Vol] 5.8 10*3/uL Normal 4.4 - 11.3 [facility] Comment on above: Performed By: #### C BC #### [address] [address] Daily Progress Note-Medicine on 02-09-2022 Daily Progress [...] night. Objective Data: Objective Information: T PRBPMAPSpO2 [id number]/188829% Date/Time02/09 8: 8: 8: 8: 8:00 Range(36.4C [...] ----- Mn/Dy/Year TimeIntakeOutputNet Feb 09, 2022 6:00 [id number] Feb 08, 2022 10:00 [id number] Feb 08, 2022 2:00 [id number] The Intake and Output Totals for the last 24 hours are: IntakeOutputNet [id number] Physical Exam Narrative: Physical Exam: General: Appears [...] & Recom (more content not included)... [facility] Daily Progress Note-Urologyo n [...] well. Objective Data: Objective Information: T PRBPMAPSpO2 [id number]/[id number]% Date/Time02/09 8: 8: 8: 8: 8:00 Range(36.4C [...] ----- Mn/Dy/Year TimeIntakeOutputNet Feb 09, 2022 6:00 [id number] Feb 08, 2022 10:00 [id number] Feb 08, 2022 2:00 [id number] The Intake and Output Totals for the last 24 hours are: [facility]Out[facility] [id number] Physical Exam by System: Constitutional: Well developed, [...] - ap (more content not included)... [facility] Discharge Planning Niox3lo 1 04-12-2021 Discharge Planning Note2 Discharge Planning: Needs Prior to Discharge (ex. 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 Patient with no use of HHC or DME prior to admission. Patient currently on 3L of O2 with no prior home O2 use. This TCC verified the patient's ability to obtain/afford medications. Patient's needs are TBD at this time, pending therapy evaluations. Patient lives at home in [place] with Miya and plans to return there. Family to provide transport at the time of d/c. Kitty Farias RN TCC 02/10- PT recs [facility]. This TCC met with the pt at the bedside. Pt is currently refusing HHC, at this time. However, pt wants a walker. This TCC received a walker script and sent a referral to [facility] for delivery. Family to provide transport at the time of d/c. Cameron Atwood Assessment: Discharge Planning Assessment [id number] Discharge Planning Assessment Completed Kevin Farias Primary Contact Name and NumberwifeMiya [phone] Prior Level of FunctioningIndependent Lives Withspouse Stated Reason for Admissionright laparoscopic nephrectomy [place] [facility] [place] Recent Falls/ Injury/ Need Assist with Ambulationn/a Home Care Agency/Support ServicesN/A Resource/Environmental Concernsnone Anticipated Transition [facility] Anticipated at Transitionnone Readmission Within the Last 30 Daysno previous admission in last 30 days PCP Last Date Seenlast month InsuranceMMO Super Med Special Considerationsn/a Transportation Home Who/Fidel (, Miya [phone]) Medication Adherence/Afford/Obtainye s Discharge Documentation: Discharge/Transfer Date/Gtlv05-Riw-2523 18:00 Discharged Accompanied Byspouse Transportation Methodprivate car Discharge Modewheelchair Code StatusCode Status order at time of discharge: Full Code Discharge Order Writtenyes [place] DNR Form Sent with Patient and/or Familyn/a Valuables/Medications/Bel ongings Returnedyes Final Disposition.Home Electronic Signatures: Kitty Farias (STAFF N) (Signed 09-Feb-2022 11:10) Authored: Discharge Planning, Assessment, Discharge Documentation Cameron Atwood (RN) (Signed 10-Feb-2022 11:44) Authored: Discharge Planning, Discharge Documentation Marysol Hussein (STAFF N) (Signed 10-Feb-2022 18:21) Authored: Discharge Planning, Discharge Documentation Last Updated: 10-Feb-2022 18:21 by Marysol Hussein (STAFF N) [facility] RENAL FUNCTION PANELon 02-09 Albumin [Mass/Vol] 3.5 g/dL Normal 3.4 - 5.0 [facility] Comment on above: Performed By: #### C BC #### [address] [address] Anion gap [Moles/Vol] 10 mmol/L Normal 10 - 20 [facility] Comment on above: Performed By: #### C BC #### [address] [address] Calcium [Mass/Vol] 8.8 mg/dL Normal 8.6 - 10.3 [facility] Comment on above: Performed By: #### C BC #### [address] [address] Chloride [Moles/Vol] 102 mmol/L Normal 98 - 107 [facility] Comment on above: Performed By: #### C BC #### [address] [address] Creatinine [Mass/Vol] 1.84 mg/dL High 0.50 - 1.30 [facility] Comment on above: Performed By: #### C BC #### [address] [address] GFR/1.73 sq M.predicted among non-blacks MDRD (S/P/Bld) [Vol rate/Area] 42 mL/min/{1.73_m2} Abnormal >90 [facility] Comment on above: Result Comment: CALC ULATIONS OF ESTIMATED GFR ARE PERFORMED USING THE 2020 CKD-EPI STUDY REFIT EQUATION WITHOUT THE RACE VARIABLE FOR THE IDMS-TRACEABLE CREATININE METHODS. https://jasn.asnjournals.org/content/early/ASN.2020 733628 Performed By: #### C BC #### [address] [address] Glucose [Mass/Vol] 127 mg/dL High 74 - 99 [facility] Comment on above: Performed By: #### C BC #### [address] [address] HCO3 (Bld) [Moles/Vol] 33 mmol/L High 21 - 32 [facility] Comment on above: Performed By: #### C BC #### [address] [address] Phosphate [Mass/Vol] 2.8 mg/dL Normal 2.5 - 4.9 [facility] Comment on above: Result Comment: The performance characteristics of phosphorus testing in heparinized plasma have been validated by the individual laboratory site where testing is performed. Testing on heparinized plasma is not approved by the FDA; however, such approval is not necessary. Performed By: #### C BC #### [address] [address] Potassium [Moles/Vol] 4.3 mmol/L Normal 3.5 - 5.3 [facility] Comment on above: Performed By: #### C BC #### [address] [address] Sodium [Moles/Vol] 141 mmol/L Normal 136 - 145 [facility] Comment on above: Performed By: #### C BC #### [address] [place] [address] Urea nitrogen [Mass/Vol] 25 mg/dL High 6 - 23 [facility] Comment on above: Performed By: #### C BC #### [address] [place] [address] CBCon 02-08-2022 Erythrocyte distribution width (RBC) [Ratio] 19.7 % High 11.5 - 14.5 [facility] Comment on above: Performed By: #### C BC #### [address] [place] [address] Hematocrit (Bld) [Volume fraction] 46.7 % Normal 41.0 - 52.0 [facility] Comment on above: Performed By: #### C BC #### [address] [address] Hemoglobin (Bld) [Mass/Vol] 14.0 g/dL Normal 13.5 - 17.5 [facility] Comment on above: Performed By: #### C BC #### [address] [place] [address] MCHC (RBC) [Mass/Vol] 30.0 g/dL Low 32.0 - 36.0 [facility] Comment on above: Performed By: #### C BC #### [address] [address] MCV (RBC) [Entitic vol] 106 fL High 80 - 100 [facility] Comment on above: Performed By: #### C BC #### [address] [place] [address] NUCLEATED RBC 0.3 /100 WBC Normal 0.0 - 0.0 [facility] Comment on above: Performed By: #### C BC #### [address] [place] [address] Platelets (Bld) [#/Vol] 123 10*3/uL Low 150 - 450 [facility] Comment on above: Performed By: #### C BC #### [address] [place] [address] RBC 4.42 x10E12/L Low 4.50 - 5.90 [facility] Comment on above: Performed By: #### C BC #### [address] [address] WBC (Bld) [#/Vol] 6.8 10*3/uL Normal 4.4 - 11.3 [facility] Comment on above: Performed By: #### C BC #### [address] [address] COMPREHENSIVE PANELon 2021 Albumin [Mass/Vol] 3.5 g/dL Normal 3.4 - 5.0 [facility] Comment on above: Performed By: #### C MP #### [address] [address] ALP [Catalytic activity/Vol] 54 U/L Normal 33 - 120 [facility] Comment on above: Performed By: #### C MP #### [address] [address] ALT [Catalytic activity/Vol] 121 U/L High 10 - 52 [facility] Comment on above: Result Comment: Hynu ents treated with Sulfasalazine may generate falsely decreased results for ALT. Performed By: #### C MP #### [address] [address] Anion gap [Moles/Vol] 14 mmol/L Normal 10 - 20 [facility] Comment on above: Performed By: #### C MP #### [address] [address] AST [Catalytic activity/Vol] 83 U/L High 9 - 39 [facility] Comment on above: Result Comment: MILD HEMOLYSIS DETECTED. The result may be falsely elevated due to hemolysis or other interferents. Clinical correlation is recommended. Repeat testing may be considered. Performed By: #### C MP #### [address] [address] Bilirubin [Mass/Vol] 0.9 mg/dL Normal 0.0 - 1.2 [facility] Comment on above: Performed By: #### C MP #### [address] [place] [address] Calcium [Mass/Vol] 8.5 mg/dL Low 8.6 - 10.3 [facility] Comment on above: Performed By: #### C MP #### [address] [address] Chloride [Moles/Vol] 103 mmol/L Normal 98 - 107 [facility] Comment on above: Performed By: #### C MP #### [address] [address] Creatinine [Mass/Vol] 1.90 mg/dL High 0.50 - 1.30 [facility] Comment on above: Performed By: #### C MP #### [address] [address] GFR/1.73 sq M.predicted among non-blacks MDRD (S/P/Bld) [Vol rate/Area] 40 mL/min/{1.73_m2} Abnormal >90 [facility] Comment on above: Result Comment: CALC ULATIONS OF ESTIMATED GFR ARE PERFORMED USING THE 2020 CKD-EPI STUDY REFIT EQUATION WITHOUT THE RACE VARIABLE FOR THE IDMS-TRACEABLE CREATININE METHODS. https://jasn.asnjournals.org/content/early//ASN.2020 421070 Performed By: #### C MP #### [address] [address] Glucose [Mass/Vol] 92 mg/dL Normal 74 - 99 [facility] Comment on above: Performed By: #### C MP #### [address] [address] HCO3 (Bld) [Moles/Vol] 24 mmol/L Normal 21 - 32 [facility] Comment on above: Performed By: #### C MP #### [address] [address] Potassium [Moles/Vol] 4.2 mmol/L Normal 3.5 - 5.3 [facility] Comment on above: Result Comment: MILD HEMOLYSIS DETECTED. The result may be falsely elevated due to hemolysis or other interferents. Clinical correlation is recommended. Repeat testing may be considered. Performed By: #### C MP #### [address] [place] [address] Protein [Mass/Vol] 6.0 g/dL Low 6.4 - 8.2 [facility] Comment on above: Performed By: #### C MP #### [address] [address] Sodium [Moles/Vol] 137 mmol/L Normal 136 - 145 [facility] Comment on above: Performed By: #### C MP #### [address] [address] Urea nitrogen [Mass/Vol] 31 mg/dL High 6 - 23 [facility] Comment on above: Performed By: #### C MP #### [address] [address] Daily Progress Note-Medicine on 02-08-2022 Daily Progress [...] night. Objective Data: Objective Information: T PRBPMAPSpO2 [id number] % Date/Time02/08 8: 8: 8: 8: 11: [...] ----- Mn/Dy/Year [facility] Feb 08, 2022 6:00 [id number] Feb 07, 2022 10:00 [id number] Feb 07, 2022 2:00 [id number] The Intake and Output Totals for the last 24 hours are: [facility] [id number] Physical Exam Narrative: Physical Exam: General: Appears [...] # Atelectasi (more content not included)... [facility] Daily Progress Note-Urologyo n [...] complaints. Objective Data: Objective Information: T PRBPMAPSpO2 [id number] % Date/Time02/08 8: 8: 8: 8: 11: [...] ----- Mn/Dy/Year TimeIntakeOutputNet Feb 08, 2022 6:00 [id number] Feb 07, 2022 10:00 [id number] Feb 07, 2022 2:00 [id number] The Intake and Output Totals for the last 24 hours are: IntakeOutputNet [id number] Physical Exam Narrative: Physical Exam: General: in [...] Updated: 08-Feb-2022 10:32 by Andre Mota) [facility] ARTERIAL FULL PANELon 2021 OXY HGB 92.9 % Low 94.0 - 98.0 [facility] Comment on above: Result [...] 08:50 Performed By: #### C BC #### [place] [address] SO2 93 % Low 94 - 100 [facility] Comment on above: Result [...] 08:50 Performed By: #### C BC #### [place] [address] LANRE'S TEST[COLLATERAL CIRCULATION] YES, RR [facility] Comment on above: Performed By: #### C BC #### [place] [id number] Anion gap [Moles/Vol] 9 mmol/L Low 10 - 25 [facility] Comment on above: Performed By: #### C BC #### [place] [id number] BASE EXCESS-BLOOD 2.9 mmol/L Normal -2.0 - 3.0 [facility] Comment on above: Performed By: #### C BC #### [place] [id number] BICARB, CALCULATED 31.0 mmol/L High 22.0 - 26.0 [facility] Comment on above: Performed By: #### C BC #### [place] [id number] CALCIUM,IONIZED 1.17 mmol/L Normal 1.10 - 1.33 [facility] Comment on above: Performed By: #### C BC #### [address] [place] [address] Chloride [Moles/Vol] 105 mmol/L Normal 98 - 107 [facility] Comment on above: Performed By: #### C BC #### [address] [place] [address] EPAP CMH2O 8.0 cm H2O [facility] Comment on above: Performed By: #### C BC #### [address] [place] [address] FLOW 8.0 LPM [facility] Comment on above: Performed By: #### C BC #### [address] [place] [address] Glucose [Mass/Vol] 117 mg/dL High 74 - 99 [facility] Comment on above: Performed By: #### C BC #### [address] [place] [address] Hematocrit (Bld) [Volume fraction] 40.0 % Low 41.0 - 52.0 [facility] Comment on above: Performed By: #### C BC #### [address] [place] [address] Hemoglobin (Bld) [Mass/Vol] 13.2 g/dL Normal 13.5 - 17.5 [facility] Comment on above: Result Comment: Test report has been amended to note detection of an absorbance or turbidity error which may cause inaccurate results. The result is unchanged but should be interpreted with caution and in conjunction with additional laboratory information. Performed By: #### C BC #### [address] [place] [address] IPAP CMH2O 16.0 cm H2O [facility] Comment on above: Performed By: #### C BC #### [address] [place] [address] Lactate [Moles/Vol] 0.9 mmol/L Normal 0.4 - 2.0 [facility] Comment on above: Performed By: #### C BC #### [address] [place] [address] Oxygen (Bld) [Partial pressure] 95 mm[Hg] Normal 85 - 95 [facility] Comment on above: Performed By: #### C BC #### [address] [address] PATIENT TEMPERATURE 37.0 degrees C Normal [facility] Comment on above: Result Comment: NOTE : PATIENT RESULTS ARE NOT CORRECTED FOR TEMPERATURE. Performed By: #### C BC #### [address] [id number] PCO2 63 mmHg High 38 - 42 [facility] [place] Comment on above: Performed By: #### C BC #### [address] [address] pH (Bld) 7.30 [pH] Low 7.38 - 7.42 [facility] [place] Comment on above: Performed By: #### C BC #### [address] [address] Potassium [Moles/Vol] 4.6 mmol/L Normal 3.5 - 5.3 [facility] [place] Comment on above: Performed By: #### C BC #### [address] [address] Sodium [Moles/Vol] 140 mmol/L Normal 136 - 145 [facility] Comment on above: Performed By: #### C BC #### [address] [address] VENTILATOR MODE BiPAP Normal [facility] [place] Comment on above: Performed By: #### C BC #### [address] [address] LANRE'S TEST[COLLATERAL CIRCULATION] N/A Normal [facility] [place] Comment on above: Order Comment: BIPAP 14/8 4 LPM Performed By: #### A FPA4 ####[address] [address] Anion gap [Moles/Vol] 11 mmol/L Normal 10 - 25 [facility] [place] Comment on above: Order Comment: BIPAP 14/8 4 LPM Performed By: #### A FPA4 ####[address] [address] BASE EXCESS-BLOOD 1.5 mmol/L Normal -2.0 - 3.0 [facility] Comment on above: Order Comment: BIPAP 19/10 4 LPM Performed By: #### A FPA4 ####[address] [address] BICARB, CALCULATED 30.3 mmol/L High 22.0 - 26.0 [facility] [place] Comment on above: Order Comment: BIPAP 19/10 4 LPM Performed By: #### A FPA4 ####[address] [address] CALCIUM,IONIZED 1.18 mmol/L Normal 1.10 - 1.33 [facility] [place] Comment on above: Order Comment: BIPAP 19/10 LPM Performed By: #### A FPA4 ####[address] [address] Chloride [Moles/Vol] 104 mmol/L Normal 98 - 107 [facility] [place] Comment on above: Order Comment: BIPAP 19/10 4 LPM Performed By: #### A FPA4 ####[address] [address] Glucose [Mass/Vol] 168 mg/dL High 74 - 99 [facility] Comment on above: Order Comment: BIPAP 19/10 4 LPM Performed By: #### A FPA4 ####[address] [address] Hematocrit (Bld) [Volume fraction] 42.0 % Normal 41.0 - 52.0 [facility] [place] Comment on above: Order Comment: BIPAP 19/10 4 LPM Performed By: #### A FPA4 ####[address] [address] Hemoglobin (Bld) [Mass/Vol] 14.1 g/dL Normal 13.5 - 17.5 [facility] [place] Comment on above: Order Comment: BIPAP 14 4 LPM Performed By: #### A FPA4 ####[address] [address] Lactate [Moles/Vol] 0.9 mmol/L Normal 0.4 - 2.0 [facility] Comment on above: Order Comment: BIPAP 14/8 4 LPM Performed By: #### A FPA4 ####[address] [address] OXY HGB 87.0 % Low 94.0 - 98.0 [facility] [place] Comment on above: Order Comment: BIPAP 14/8 4 LPM Performed By: #### A FPA4 ####[address] [address] Oxygen (Bld) [Partial pressure] 63 mm[Hg] Low 85 - 95 [facility] [place] Comment on above: Order Comment: BIPAP 14/8 4 LPM Performed By: #### A FPA4 ####[address] [address] PATIENT TEMPERATURE 37.0 degrees C Normal [facility] Comment on above: Order Comment: BIPAP 14/8 4 LPM Result Comment: NOTE : PATIENT RESULTS ARE NOT CORRECTED FOR TEMPERATURE. Performed By: #### A FPA4 ####[address] [address] PCO2 66 mmHg High 38 - 42 [facility] [place] Comment on above: Order Comment: BIPAP 14/8 4 LPM Performed By: #### A FPA4 ####[address] [address] pH (Bld) 7.27 [pH] Low 7.38 - 7.42 [facility] [place] Comment on above: Order Comment: BIPAP 14/8 4 LPM Performed By: #### A FPA4 ####[address] [address] Potassium [Moles/Vol] 4.4 mmol/L Normal 3.5 - 5.3 [facility] [place] Comment on above: Order Comment: BIPAP 14/8 4 LPM Performed By: #### A FPA4 ####[address] [address] SO2 89 % Low 94 - 100 [facility] [place] Comment on above: Order Comment: BIPAP 19/10 4 LPM Performed By: #### A FPA4 ####[address] [address] Sodium [Moles/Vol] 141 mmol/L Normal 136 - 145 [facility] Comment on above: Order Comment: BIPAP 19/10 4 LPM Performed By: #### A FPA4 ####[address] [address] CBCon 02-07-2022 Erythrocyte distribution width (RBC) [Ratio] 19.1 % High 11.5 - 14.5 [facility] [place] Comment on above: Performed By: #### C BC ####[address] [address] Hematocrit (Bld) [Volume fraction] 43.1 % Normal 41.0 - 52.0 [facility] [place] Comment on above: Performed By: #### C BC ####[address] [address] Hemoglobin (Bld) [Mass/Vol] 13.6 g/dL Normal 13.5 - 17.5 [facility] [place] Comment on above: Performed By: #### C BC ####[address] [address] MCHC (RBC) [Mass/Vol] 31.6 g/dL Low 32.0 - 36.0 [facility] [place] Comment on above: Performed By: #### C BC ####[address] [address] MCV (RBC) [Entitic vol] 100 fL Normal 80 - 100 [facility] Comment on above: Performed By: #### C BC ####[address] [address] NUCLEATED RBC 0.4 /100 WBC Normal 0.0 - 0.0 [facility] [place] Comment on above: Performed By: #### C BC ####[address] [address] Platelets (Bld) [#/Vol] 150 10*3/uL Normal 150 - 450 [facility] [place] Comment on above: Performed By: #### C BC ####[facility] [place] [address] RBC 4.32 x10E12/L Low 4.50 - 5.90 [facility] [place] Comment on above: Performed By: #### C BC ####[facility] [place] [address] WBC (Bld) [#/Vol] 7.1 10*3/uL Normal 4.4 - 11.3 [facility] Comment on above: Performed By: #### C BC ####[id number] [place] [address] Consult-DACR, Medicineon Consult-DACR, Medicine Service: Service: DACR Medicine Consult: Consult requested by (Attending Name): Aravind Hernandez Reason: medicine consult, urology as primary History of Present Illness: Admission Reason: Rt. nephrectomy HPI: YEFIR YANEZ is a 57 year old Male [...] Mushrooms: Unknown Objective: Objective Information: T PRBPMAPSpO2 Value37.0881135/036320% Date/Time02/07 16: 16: 16: 16: 11: 16:00 [...] 2.9 Bi (more content not included)... Normal [facility] [place] Daily Progress Note - [...] comfortably. Objective Data: Objective Information T PRBPMAPSpO2 Value35.69809394/215079% Date/Time02/07 4: 7: 7: 7: 7: 7:00 [...] for the last 24 hours are: IntakeOutputNet [id number] Drain and tube details (included in I&O totals) 1100 cc Indwelling Catheter - Urethral( 07-Feb-2022 06:00:00 ) Date: Weight/Scale Type: 07-Feb-2022 06:75387.7 kg / bed 06-Feb-2022 09:37491 kg 06-Feb-2022 09:72364 kg Physical Exam by System: Neurological: alert [...] h range: ( 7.26 - 7.45 ) [id number] 24 h range: ( 46 - 68 ) SO293 24 h range: ( 87 (more content not included)... Normal [facility] [place] Daily Progress Note-Urologyo n [...] noted. Objective Data: Objective Information: T PRBPMAPSpO2 Value35.75418940/865869% Date/Time02/07 4: 7: 7: 7: 7: 7:00 [...] for the last 24 hours are: IntakeOutputNet [id number] Physical Exam Narrative: Physical Exam: General: in [...] h range: ( 7.26 - 7.45 ) [id number] 24 h range: ( 46 - 68 [...] Updated: 07-Feb-2022 07:33 by Andre Mota) Normal [facility] [place] GLUCOSE-POCTon 02-07-2022 Glucose [Mass/Vol] 124 mg/dL High 74 - 99 [facility] Comment on above: Performed By: #### G STEFANI ####[facility] [place] [address] MAGNESIUMon 02-07-2022 Magnesium [Mass/Vol] 1.98 mg/dL Normal 1.60 - 2.40 [facility] [place] Comment on above: Performed By: #### M G ####[id number] [place] [address] RENAL FUNCTION PANELon 02-07 Albumin [Mass/Vol] 3.7 g/dL Normal 3.4 - 5.0 [facility] Comment on above: Performed By: #### R ENAL #### [address] [address] Anion gap [Moles/Vol] 14 mmol/L Normal 10 - 20 [facility] [place] Comment on above: Performed By: #### R ENAL #### [address] [address] Calcium [Mass/Vol] 8.4 mg/dL Low 8.6 - 10.3 [facility] Comment on above: Performed By: #### R ENAL #### [address] [address] Chloride [Moles/Vol] 107 mmol/L Normal 98 - 107 [facility] [place] Comment on above: Performed By: #### R ENAL #### [address] [address] Creatinine [Mass/Vol] 1.57 mg/dL High 0.50 - 1.30 [facility] [place] Comment on above: Performed By: #### R ENAL #### [address] [address] GFR/1.73 sq M.predicted among non-blacks MDRD (S/P/Bld) [Vol rate/Area] 51 mL/min/{1.73_m2} Abnormal >90 [facility] [place] Comment on above: Result Comment: CALC ULATIONS OF ESTIMATED GFR ARE PERFORMED USING THE 2020 CKD-EPI STUDY REFIT EQUATION WITHOUT THE RACE VARIABLE FOR THE IDMS-TRACEABLE CREATININE METHODS. https://jasn.asnjournals.org/content/early//ASN.2020 649957 Performed By: #### R ENAL #### [address] [place] [address] Glucose [Mass/Vol] 115 mg/dL High 74 - 99 [facility] Comment on above: Performed By: #### R ENAL #### [address] [place] [address] HCO3 (Bld) [Moles/Vol] 29 mmol/L Normal 21 - 32 [facility] Comment on above: Performed By: #### R ENAL #### [address] [place] [address] Phosphate [Mass/Vol] 6.1 mg/dL High 2.5 - 4.9 [facility] [place] Comment on above: Result Comment: The performance characteristics of phosphorus testing in heparinized plasma have been validated by the individual laboratory site where testing is performed. Testing on heparinized plasma is not approved by the FDA; however, such approval is not necessary. Performed By: #### R ENAL #### [address] [place] [address] Potassium [Moles/Vol] 4.6 mmol/L Normal 3.5 - 5.3 [facility] [place] Comment on above: Performed By: #### R ENAL #### [address] [place] [address] Sodium [Moles/Vol] 145 mmol/L Normal 136 - 145 [facility] Comment on above: Performed By: #### R ENAL #### [address] [place] [address] Urea nitrogen [Mass/Vol] 25 mg/dL High 6 - 23 [facility] [place] Comment on above: Performed By: #### R ENAL #### [address] [place] [address] ABO/RH GROUP TESTon 02-07-20 22 ABO TYPE Canceled Normal [facility] [place] Comment on above: Order Comment: TEST ABO/RH GROUP TEST WAS CANCELLED, 02/06/2022 15:57 not needed. Performed By: #### C BC #### [address] [place] [address] RH TYPE Canceled Normal [facility] [place] Comment on above: Order Comment: TEST ABO/RH GROUP TEST WAS CANCELLED, 02/06/2022 15:57 not needed. Performed By: #### C BC #### [address] [address] ARTERIAL FULL PANELon 2021 LANRE'S TEST[COLLATERAL CIRCULATION] N/A Normal [facility] [place] Comment on above: Order Comment: 4 LPM NC Performed By: #### A FPA4 #### [address] [address] Anion gap [Moles/Vol] 10 mmol/L Normal 10 - 25 [facility] [place] Comment on above: Order Comment: 4 LPM NC Performed By: #### A FPA4 #### [address] [address] BASE EXCESS-BLOOD 1.4 mmol/L Normal -2.0 - 3.0 [facility] Comment on above: Order Comment: 4 LPM NC Performed By: #### A FPA4 #### [address] [address] BICARB, CALCULATED 30.5 mmol/L High 22.0 - 26.0 [facility] [place] Comment on above: Order Comment: 4 LPM NC Performed By: #### A FPA4 #### [address] [address] CALCIUM,IONIZED 1.17 mmol/L Normal 1.10 - 1.33 [facility] [place] Comment on above: Order Comment: 4 LPM NC Performed By: #### A FPA4 #### [address] [address] Chloride [Moles/Vol] 105 mmol/L Normal 98 - 107 [facility] [place] Comment on above: Order Comment: 4 LPM NC Performed By: #### A FPA4 #### [address] [address] Glucose [Mass/Vol] 142 mg/dL High 74 - 99 [facility] Comment on above: Order Comment: 4 LPM NC Performed By: #### A FPA4 #### [address] [address] Hematocrit (Bld) [Volume fraction] 43.0 % Normal 41.0 - 52.0 [facility] [place] Comment on above: Order Comment: 4 LPM NC Performed By: #### A FPA4 #### [address] [address] Hemoglobin (Bld) [Mass/Vol] 14.3 g/dL Normal 13.5 - 17.5 [facility] [place] Comment on above: Order Comment: 4 LPM NC Performed By: #### A FPA4 #### [address] [address] Lactate [Moles/Vol] 1.0 mmol/L Normal 0.4 - 2.0 [facility] Comment on above: Order Comment: 4 LPM NC Performed By: #### A FPA4 #### [address] [address] OXY HGB 84.3 % Low 94.0 - 98.0 [facility] [place] Comment on above: Order Comment: 4 LPM NC Performed By: #### A FPA4 #### [address] [address] Oxygen (Bld) [Partial pressure] 60 mm[Hg] Low 85 - 95 [facility] [place] Comment on above: Order Comment: 4 LPM NC Performed By: #### A FPA4 #### [address] [address] PATIENT TEMPERATURE 37.0 degrees C Normal [facility] Comment on above: Order Comment: 4 LPM NC Result Comment: NOTE : PATIENT RESULTS ARE NOT CORRECTED FOR TEMPERATURE. Performed By: #### A FPA4 #### [address] [address] PCO2 68 mmHg High 38 - 42 [facility] [place] Comment on above: Order Comment: 4 LPM NC Performed By: #### A FPA4 #### [address] [address] pH (Bld) 7.26 [pH] Low 7.38 - 7.42 [facility] [place] Comment on above: Order Comment: 4 LPM NC Performed By: #### A FPA4 #### [address] [address] Potassium [Moles/Vol] 4.0 mmol/L Normal 3.5 - 5.3 [facility] [place] Comment on above: Order Comment: 4 LPM NC Performed By: #### A FPA4 #### [address] [address] SO2 87 % Low 94 - 100 [facility] [place] Comment on above: Order Comment: 4 LPM NC Performed By: #### A FPA4 #### [address] [address] Sodium [Moles/Vol] 141 mmol/L Normal 136 - 145 [facility] Comment on above: Order Comment: 4 LPM NC Performed By: #### A FPA4 #### [address] [address] Anion gap [Moles/Vol] 6 mmol/L Low 10 - 25 [facility] [place] Comment on above: Performed By: #### A FPA4 ####[address] [address] BASE EXCESS-BLOOD 6.9 mmol/L High -2.0 - 3.0 [facility] Comment on above: Performed By: #### A FPA4 ####[address] [address] BICARB, CALCULATED 32.0 mmol/L High 22.0 - 26.0 [facility] [place] Comment on above: Performed By: #### A FPA4 ####[address] [address] CALCIUM,IONIZED 1.16 mmol/L Normal 1.10 - 1.33 [facility] [place] Comment on above: Performed By: #### A FPA4 ####[address] [address] Chloride [Moles/Vol] 106 mmol/L Normal 98 - 107 [facility] [place] Comment on above: Performed By: #### A FPA4 ####[address] [address] Glucose [Mass/Vol] 146 mg/dL High 74 - 99 [facility] Comment on above: Performed By: #### A FPA4 ####[address] [address] Hematocrit (Bld) [Volume fraction] 42.0 % Normal 41.0 - 52.0 [facility] [place] Comment on above: Performed By: #### A FPA4 ####[address] [address] Hemoglobin (Bld) [Mass/Vol] 14.1 g/dL Normal 13.5 - 17.5 [facility] [place] Comment on above: Performed By: #### A FPA4 ####[address] [address] Lactate [Moles/Vol] 1.2 mmol/L Normal 0.4 - 2.0 [facility] Comment on above: Performed By: #### A FPA4 ####[address] [address] OXY HGB 95.3 % Normal 94.0 - 98.0 [facility] [place] Comment on above: Performed By: #### A FPA4 ####[address] [address] Oxygen (Bld) [Partial pressure] 84 mm[Hg] Low 85 - 95 [facility] [place] Comment on above: Performed By: #### A FPA4 ####[address] [address] PATIENT TEMPERATURE 37.0 degrees C Normal [facility] Comment on above: Result Comment: NOTE : PATIENT RESULTS ARE NOT CORRECTED FOR TEMPERATURE. Performed By: #### A FPA4 ####[address] [address] PCO2 46 mmHg High 38 - 42 [facility] [place] Comment on above: Performed By: #### A FPA4 ####[address] [address] pH (Bld) 7.45 [pH] High 7.38 - 7.42 [facility] [place] Comment on above: Performed By: #### A FPA4 ####[address] [address] Potassium [Moles/Vol] 3.4 mmol/L Low 3.5 - 5.3 [facility] [place] Comment on above: Performed By: #### A FPA4 ####[address] [place] [address] SO2 98 % Normal 94 - 100 [facility] [place] Comment on above: Performed By: #### A FPA4 ####[address] [place] [address] Sodium [Moles/Vol] 141 mmol/L Normal 136 - 145 [facility] Comment on above: Performed By: #### A FPA4 ####[address] [address] CBCon 02-06-2022 Erythrocyte distribution width (RBC) [Ratio] 19.0 % High 11.5 - 14.5 [facility] [place] Comment on above: Performed By: #### C BC #### [address] [address] Hematocrit (Bld) [Volume fraction] 42.4 % Normal 41.0 - 52.0 [facility] [place] Comment on above: Performed By: #### C BC #### [address] [address] Hemoglobin (Bld) [Mass/Vol] 13.5 g/dL Normal 13.5 - 17.5 [facility] [place] Comment on above: Performed By: #### C BC #### [address] [address] MCHC (RBC) [Mass/Vol] 31.8 g/dL Low 32.0 - 36.0 [facility] [place] Comment on above: Performed By: #### C BC #### [address] [address] MCV (RBC) [Entitic vol] 99 fL Normal 80 - 100 [facility] Comment on above: Performed By: #### C BC #### [address] [address] NUCLEATED RBC 0.6 /100 WBC Normal 0.0 - 0.0 [facility] [place] Comment on above: Performed By: #### C BC #### [address] [place] [address] Platelets (Bld) [#/Vol] 137 10*3/uL Low 150 - 450 [facility] [place] Comment on above: Performed By: #### C BC #### [address] [place] [address] RBC 4.29 x10E12/L Low 4.50 - 5.90 [facility] [place] Comment on above: Performed By: #### C BC #### [address] [place] [address] WBC (Bld) [#/Vol] 6.9 10*3/uL Normal 4.4 - 11.3 [facility] Comment on above: Performed By: #### C BC #### [address] [place] [address] Clinical Intervention - Ginna etienne 02-06-2022 Clinical Intervention - Pharmacy Pharmacist's Clinical Intervention: Is this intervention medication reconciliation related: yes, History Electronic Signatures: Andrés Bañuelos (Cadigo) (Signed 06-Feb-2022 18:53) Authored: Pharmacist's Clinical Intervention Last Updated: 06-Feb-2022 18:53 by Andrés Bañuelos (RMI) [facility] Consult-Critical Careon 12-0 Consult-Critical Care Service: Service: [...] MAP >70 (more content not included)... Normal [facility] [place] Discharge [id number] Discharge Profile2 Discharge Orders: Anticipated Discharge Date: Anticipated Discharge [id number] Problem List: Admitting Dx: Renal cell carcinoma: [...] WORRISOME - NOTIFY YOUR PHYSICIAN OR RESIDENT MACHINE GROUP LEADER. - Fever greater than 101 F or 38.3 C, chills, nausea, vomiting, or feeling ill. - Inability to urinate. - Drainage of foul smelling fluid (pus) from the incision or drain sites. - Excruciating pain that is not controlled by prescription or wulo-vwa-xrxafqz medications. - You were sent home on [...] appointments, please call our Main Office at [phone]. Provider FINAL REVIEW of Orders: Final Review: Final Review of Medication Reconciliation and Orders Completedby Physician Reviewing ProviderClau Diallo MD (Resident) at 06-Feb-2022 13:52:19 Appointments: Follow-Up Appointment 01: Physician/Dept/ServiceDr. Hernandez Reason for Referralpost op follow up Call to Schedule in2 weeks Phone [phone] CommentsPlease call to schedule appointment Follow-Up Appointment 02: Physician/Dept/[facility] physician Reason for ReferralHospital follow up - blood pressure Call to Schedule in2-3 days CommentsPlease call to schedule Electronic Signatures: Gini Escalante ([employer]IQUETTE TE[employer]) (Signed 10-Feb-2022 11:42) Authored: Discharge Orders, Appointments Clau Diallo ( (Resident)) (Signed 06-Feb-2022 13:52) Authored: Discharge Orders, Urology, Provider FINAL REVIEW of Orders, 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 Last Updated: 10-Feb-2022 11:42 by Gini Escalante ([facility]) Normal [facility] [place] GLUCOSE-POCTon 02-06-2022 Glucose [Mass/Vol] 133 mg/dL High 74 - 99 [facility] Comment on above: Performed By: #### G STEFANI #### [facility] [address] [place] [address] Order Reconciliationon 02-06 Order Reconciliation Page 1 Discharge Reconciliation Document Reconciliation Type: Discharge requested on behalf of Gini Escalante (Advanced Practice Nurse) done by Gini Escalante ([facility]) Discharge - Reconciliation: 06-Feb-2022 13:48 by: Clau Diallo ( (Resident)) Discharge - Reset to Incomplete: 09-Feb-2022 12:41 by: Gini Escalante ([facility]) Discharge - Partial Reconciliation: 09-Feb-2022 12:42 by: Gini Escalante ([facility]) Discharge - Partial Reconciliation: 10-Feb-2022 11:06 by: Luís Siegel (DO (Resident)) Discharge - Partial Reconciliation: 10-Feb-2022 11:17 by: Luís Siegel (DO (Resident)) Discharge - Reconciliation: 10-Feb-2022 11:21 by: Gini Escalante ([employer]) Home Medications [facility] MEDICATIONS AT DISCHARGE DateReconciliation Comment/ Additional [...] not requir (more content not included)... Normal [facility] Order Reconciliation Page 1 Admission Reconciliation Document Reconciliation Type: Admission from OR requested on behalf of Clau Diallo (Resident) done by Clau Diallo (Resident)) Admission from OR - Reconciliation: 06-Feb-2022 13:42 by: Clau Diallo ( (Resident)) Home MedicationsEnteredLast Dose TakenReconciled with current Order Reconciliation Comment/ Additional Information Cabometyx 20 mg oral tablet 1 tab(s) orally once a [id number] AM Reviewed and Held carvedilol 6.25 mg oral tablet 1 tab(s) orally once a [id number]-Feb-2022 AM Carvedilol - PEDS Tablet (COREG)DOSE = 6.25 mg Oral DailyCa.0543 mg/Kg/DOSE x 115 Kg = 6.25 mg/Dose (Daily Total is 6.25 mg) Weight type: Med Calc Weightcarvedilol 6.25 mg oral tablet continued as the inpatient order Carvedilol - PEDS cyclobenzaprine 10 mg oral tablet 1 tab(s) orally 3 times a [id number]-Feb-2022 AM Cyclobenzaprine Tablet (FLEXERIL)DOSE = 10 mg Oral 3 Times a Daycyclobenzaprine 10 mg oral tablet continued as the inpatient order Cyclobenzaprine ibuprofen 800 mg oral tablet 1 tab(s) orally 3 times a day, As Needed 2021 Reviewed and Held lovastatin 10 mg oral tablet 1 tab(s) orally once a [id number] Atorvastatin Tablet (LIPITOR)DOSE = 10 mg Oral At Bedtimelovastatin 10 mg oral tablet continued as the inpatient order Atorvastatin pantoprazole 40 mg oral delayed release tablet 1 tab(s) orally once a day [id number] Pantoprazole Enteric Coated Tablet (PROTONIX)DOSE = 40 mg Oral Dailypantoprazole 40 mg oral delayed release tablet continued as the inpatient order Pantoprazole spironolactone 25 mg oral tablet 1 tab(s) orally once a [id number]-2022 AM Spironolactone Tablet (ALDACTONE)DOSE = 25 mg Oral Daily spironolactone 25 mg oral tablet continued as the inpatient order Spironolactone warfarin 5 mg oral tablet 1 tab(s) orally once a [id number] Reviewed and Held Additional Current Orders Acetaminophen [...] micrograms r (more content not included)... Normal [facility] PT/INRon 02-06-2022 PT Coag (PPP) [Time] 14.3 s High 9.8 - 13.4 [facility] Comment on above: Performed By: #### P TINR ####[facility] [place] [address] PT, INR 1.2 High 0.9 - 1.1 [facility] Comment on above: Performed By: #### P TINR ####[facility] [place] [address] Patient Profile - Preop v3on 02-06-2022 Patient Profile - Preop v3 Patient Profile - Preop: Initial Info: Patient DemographicsName: YEFRI YANEZ Date: 1965 Address: [facility] NATHANIEL JIMENEZ, [facility] Primary Phone [phone] Instructions Givenanticoagulant meds - patient advised to consult ordering provider, appropriate clothing, bring glasses/contacts case, bring list of medications, center location, diabetes meds - patient advised to consult ordering provider, insurance information, remove jewerly/piercings How to be AddressedTHOMAS Spoken Language PreferredEnglish Source of Informationpatient Stated Reason for AdmissionREMOVAL OF RIGHT KIDNEY Primary Contact Name and Numbersonya [phone] Limitations on Visitors/Phone Callsnone Medications Brought to Hospitalno General Health: Weight in kg115 kilogram(s) Weight in obp416.5 pound(s) Weight Methodstated Scale Typechair Height in feet5 feet Height in qejgvv22 inch(es) Height in cm177.8 centimeter(s) Height Methodstated BMI (kg/m2)36.377 square meter Patient or Family Member Reaction to Anesthesianever had anesthesia Blood Avoidance/Restrictionsnon e Previous Transfusion Reactionnever had blood Health Mgmt: Symptoms/Conditions [facility] list Barriers to Managing Healthnone Relationship/Environ: Lives Withspouse Living Arrangementshouse Resource/Environmental Concernsnone Anticipated Transition [employer] [facility] Anticipated at [facility] Tobacco Use: Tobacco Useyes Last Tobacco [id number] Tobacco CommentSONALI, VAPING Pre-op Checklist: Arrival [id number] Arrival Time10:02 Procedure TypeRT LAPAROSCOPIC NEPHRECTOMY NPOyes Last Food [id number] 19:30 Last Clear Fluid [id number] 06:30 ID Band On Patientpatient ID (name), [...] 06-Feb-2022 10:06 by Ivette Elizondo (JOHN) Normal [facility] RENAL FUNCTION PANELon 02-06 Albumin [Mass/Vol] 3.8 g/dL Normal 3.4 - 5.0 [facility] Comment on above: Performed By: #### C BC #### [address] [address] Anion gap [Moles/Vol] 10 mmol/L Normal 10 - 20 [facility] Comment on above: Performed By: #### C BC #### [address] [address] Calcium [Mass/Vol] 8.6 mg/dL Normal 8.6 - 10.3 [facility] Comment on above: Performed By: #### C BC #### [address] [address] Chloride [Moles/Vol] 106 mmol/L Normal 98 - 107 [facility] Comment on above: Performed By: #### C BC #### [address] [address] Creatinine [Mass/Vol] 1.38 mg/dL High 0.50 - 1.30 [facility] Comment on above: Performed By: #### C BC #### [address] [address] GFR/1.73 sq M.predicted among non-blacks MDRD (S/P/Bld) [Vol rate/Area] 59 mL/min/{1.73_m2} Abnormal >90 [facility] Comment on above: Result Comment: CALC ULATIONS OF ESTIMATED GFR ARE PERFORMED USING THE 2020 CKD-EPI STUDY REFIT EQUATION WITHOUT THE RACE VARIABLE FOR THE IDMS-TRACEABLE CREATININE METHODS. https://jasn.asnjournals.org/content//ASN.2020 007331 Performed By: #### C BC #### [address] [address] Glucose [Mass/Vol] 138 mg/dL High 74 - 99 [facility] Comment on above: Performed By: #### C BC #### [address] [address] HCO3 (Bld) [Moles/Vol] 31 mmol/L Normal 21 - 32 [facility] Comment on above: Performed By: #### C BC #### [address] [address] Phosphate [Mass/Vol] 4.9 mg/dL Normal 2.5 - 4.9 [facility] Comment on above: Result Comment: The performance characteristics of phosphorus testing in heparinized plasma have been validated by the individual laboratory site where testing is performed. Testing on heparinized plasma is not approved by the FDA; however, such approval is not necessary. Performed By: #### C BC #### [address] [address] Potassium [Moles/Vol] 4.0 mmol/L Normal 3.5 - 5.3 [facility] Comment on above: Performed By: #### C BC #### [address] [address] Sodium [Moles/Vol] 143 mmol/L Normal 136 - 145 [facility] Comment on above: Performed By: #### C BC #### [address] [address] Urea nitrogen [Mass/Vol] 23 mg/dL Normal 6 - 23 [facility] Comment on above: Performed By: #### C BC #### [address] [place] [address] TYPE + SCREENon 02-06-2022 ABO TYPE O Normal [facility] Comment on above: Performed By: #### T +S #### [address] [place] [address] RH TYPE Positive Normal [facility] Comment on above: Performed By: #### T +S #### [address] [place] [place] [address] [facility] Surgical Pathology Depar tmenton 02-06-2022 [facility] Surgical Pathology Department Name YEFRI YANEZ Pathologist: CYNTHIA LOPEZ MD Date of Procedure: 02/06/2022 Date Received: 02/06/2022 Date Reported 02/19/2022 Submitting Physician: ARAVIND HERNANDEZ MD Location: [facility] Other External # FINAL DIAGNOSIS [...] glomerulosclerosis Vascular disease: Mild to moderate arteriosclerosis [employer] Blocks: Normal Block: A8 Tumor Block: A3 Electronically Signed Out By CYNTHIA LOPEZ MD/KOKO By the signature on this report, the individual or group listed as making the Final Interpretation/Diagnosis certifies that they have reviewed this case. Diagnostic interpretation performed at [address] [place] [id number] Clinical History: renal cell carcinoma Specimens Submitted [...] nodes are found. Photographs have been taken. Junior Automation Engineer sections are submitted in 8 cassettes. WXK/DJO Summary of Cassettes: Specimen Label Site A 1 ureter margin 2 vascular margins 3-4 mass in relation to lurdes-renal fat (A3 with tumor deposit in lurdes-renal fat) 5-6 mass in relation to lurdes-hilar fat 7 tumor with adjacent kidney parenchyma 8 normal kidney parenchyma djo/02/10/2022 [facility] Department of Pathology [id number] [place] [address] Normal [facility] Comment on above: Performed By: #### U [facility] #### [facility] Surgical Pathology Department [address] [place], [place] [id number] Dougie 02-05-2022 CNPN Normal [facility] CNPN Telephone (CARMOB) ----- YEFRI YANEZ ([id number]) 1965 M [facility] Date Time Provider Department 02/05/22 SAYRA TELLO During your visit today, we recorded the following information about you: Abbey Nash 02/05/2022 12:41 PM Signed Patient's Miya left a voicemail stating that she has questions about the patient's upcoming appointment with Dr. Tello. Please call her at [phone]. Florian Mello RN 02/09/2022 2:26 PM Signed [...] Fully Assessed Reason for Visit: Patient Question [0847] Prescriptions as of 02/17/2022 - torsemide (DEMADEX) [...] by this patient by: SPOUSE Safia Carr, [facility] Problem List As Of Date 02/05/2022 Noted [...] Status:Closed by FLORIAN MELLO on 02/17/22 [facility] CORONAVIRUS 2019, SCREEN ASY MPTOMATICon 02-04-2022 SARS-CoV-2 (COVID-19) RNA SANDOVAL+probe Ql (Unsp spec) Not detected Normal Not Detected [facility] Comment on above: Result Comment: [...] this test method. Fact sheet for providers: https://www.fda.gov/media/663834/download Fact sheet for patients: https://www.fda.gov/media/720942/download This test has received FDA Emergency Use Authorization (EUA) and has been verified for use by [facility] ([facility]). This test is only authorized for the duration of time that circumstances exist to justify the authorization of the emergency use of in vitro diagnostic tests for the detection of SARS-CoV-2 virus and/or diagnosis of COVID-19 infection under section 564(b)(1) of the Act, 21 U.S.C. 360bbb-3(b)(1), unless the authorization is terminated or revoked sooner. [facility] is certified under CLIA-88 as qualified to perform high complexity testing. Testing is performed in the [facility] laboratories located at [address] [place] [address]. Performed By: #### C OVSC #### [place] [address] Lab Specimen Source Nasal, Nasopharyngeal Normal [facility] Comment on above: Performed By: #### C OVSC #### [place] [address] Coronavirus 2019 RNA by PCR, Screening Asymptomticon 02-04-2022 Coronavirus 2019 RNA by PCR, Screening Asymptomtic Not detected Normal See Below [employer]Kiuu[employer] yamila SJW 400 DO Work Phone: Comment [...] this test method. Fact sheet for providers: https://www.fda.gov/media/721384/download Fact sheet for patients: https://www.fda.gov/media/910684/download This test has received FDA Emergency Use Authorization (EUA) and has been verified for use by [facility] ([facility]). This test is only authorized for the duration of time that circumstances exist to justify the authorization of the emergency use of in vitro diagnostic tests for the detection of SARS-CoV-2 virus and/or diagnosis of COVID-19 infection under section 564(b)(1) of the Act, 21 U.S.C. 360bbb-3(b)(1), unless the authorization is terminated or revoked sooner.[facility] is certified under CLIA-88 as qualified to perform high complexity testing. Testing is performed in the [facility] laboratories located at [address] [place] [address]. Covid 19 Resultson 2 SARS-CoV-2 (COVID-19) RNA [...] contacted by the [facility] to see if any of your close [...] or Naproxen (Aleve) can also be used. Wgkm-pdd-hvwxbgx cough and cold medicines can be used according to the instructions on the package. Some aewf-jqt-ggmdeou medicines also contain acetaminophen. Make sure you [...] water are not available, use alcohol-based hand desulfurizer operator. Avoid touching your eyes, nose, and mouth [...] 24 felisa (more content not included)... Normal [facility] Chart Updateon 02-03-2022 Chart Update [...] between urology, medical oncology, radiation oncology at [facility] was local therapy to metastatic sites and cytoreductive nephrectomy. 12/08/2021-echo with EF 35%, LV and RV enlargement and hypokinesis 12/26/2021-patient completed radiation to chest wall and L4 lesion Patient has remained on cabo Patient was scheduled for nephrectomy with Dr. Adriana Hodge, due to insurance issues patient could not be operated on at [facility], referred to co for nephrectomy. 01/19/2022-patient scheduled for laparoscopic nephrectomy 02/0301/20/2022-patient presented to [place] ER with shortness of breath 01/27/2022-patient presented to [facility] with persistence of subjective dyspnea, expiratory wheezing 01/29/2022-patient represented to [place] ED with chest tightness and shortness of [...] with radiation therapy. Plan previously developed at [facility] was 4 local treatment to masses [...] Feb 03 2022 8:52AM EST (Author) Normal [employer] Absolute lymphocyte countOrd ered By: Dr. Bass on 01-29-2022 Lymphocytes Auto (Unsp spec) [#/Vol] 0.78 10*3/uL 0.83-4.51 [facility] Basophil percentageOrdered B y: Dr. Bass on 01-29-2022 Basophils/100 WBC (Bld) 0.3 % 0-1 [facility] Chloride [Moles/Vol] 102 mmol/L 98-107 [facility] Eosinophils/100 WBC (Bld) 0.1 % 0-5 [facility] Glucose [Mass/Vol] 148 mg/dL 74-106 [facility] Comment on above: Fasting Glucose resu lt greater than or equal to 126 mg/dL suggests DIABETES MELLITUS per A.D.A. criteria. Neutrophils (Bld) [#/Vol] 8.6 10*3/uL 2.0-7.7 [facility] Neutrophils/100 WBC (Bld) 85.8 % 47-70 [facility] Potassium [Moles/Vol] 3.5 mmol/L 3.5-5.1 [facility] Comment on above: Slight Hemolysis, Re sult may be falsely increased. Sodium [Moles/Vol] 142 mmol/L 136-145 [facility] WBC (Bld) [#/Vol] 10.0 10*3/uL 4.4-11.0 [facility] Blood erythrocytes count (nu mber/volume)Ordered By: Dr. Bass on 01-29-2022 RBC (Bld) [#/Vol] 4.81 10*6/uL 4.6-6.2 [facility] Blood hemoglobin measurement (mass/volume)Ordered By: Dr. Bass on 01-29-2022 Hemoglobin (Bld) [Mass/Vol] 15.0 g/dL 13.0-16.5 [facility] Blood lymphocytes/100 leukoc ytesOrdered By: Dr. Bass on 01-29-2022 Lymphocytes/100 WBC (Bld) 7.8 % 19-41 [facility] Blood monocytes/100 leukocyt esOrdered By: Dr. Bass on 01-29-2022 Monocytes/100 WBC (Bld) 4.3 % 0-10 [facility] Blood platelet mean volumeOr dered By: Dr. Bass on 01-29-2022 Platelet mean volume (Bld) [Entitic vol] 10.9 fL 6.2-12.0 [facility] Determination of erythrocyte mean corpuscular volume (MCV)Ordered By: Dr. Bass on 01-29-2022 MCV (RBC) [Entitic vol] 94.2 fL 80-94 [facility] Hematocrit Auto (Bld) [Volum e fraction]Ordered By: Dr. Bass on 01-29-2022 Hematocrit (Bld) [Volume fraction] 45.3 % 40-54 [facility] INR in Blood by Coagulation assayOrdered By: Dr. Bass on 01-29-2022 INR Coag (Bld) [Relative time] 1.2 {INR} [facility] Influenza virus A and B and SARS-CoV-2 (COVID-19) Ag panel - Upper respiratory specimOrdered By: Dr. Bass on 01-29-2022 SARS-CoV-2 (COVID-19) RNA SANDOVAL+probe Ql (Resp) [facility] Laboratory - Chemistry and C hemistry - challengeOrdered By: Dr. Bass on 01-29-2022 CO2 [Moles/Vol] 36.0 mmol/L 21.0-32.0 [facility] Natriuretic peptide B (Bld) [Mass/Vol] 378.8 pg/mL 0-100 [facility] Urea nitrogen/Creatinine [Mass ratio] 17.4 mg/mg 10-20 [facility] Laboratory - CoagulationOrde red By: Dr. Bass on 01-29-2022 PT Coag (PPP) [Time] 15.3 s 11.7-14.9 [facility] - Hematology and Cell countsOrdered By: Dr. Bass on 01-29-2022 Erythrocyte distribution width (RBC) [Entitic vol] 55.1 fL 35.1-43.9 [facility] Erythrocyte distribution width (RBC) [Ratio] 16.4 % 11.6-14.6 [facility] Immature granulocytes/100 WBC (Bld) 1.700 % 0.0-0.9 [facility] Comment on above: IG% - Immature Granu locytes (promyelocytes, myelocytes and metamyelocytes) > 1% indicates that a LEFT SHIFT is Present. MCH (RBC) [Entitic mass] 31.2 pg 27.0-32.0 [facility] Nucleated RBC/100 WBC (Bld) [Ratio] 1.2 % 0-5 [facility] MCHC Auto (RBC) [Mass/Vol]Or dered By: Dr. Bass on 01-29-2022 MCHC (RBC) [Mass/Vol] 33.1 g/dL 32-36 [facility] No Panel InformationOrdered By: Dr. Bass on 01-29-2022 Estimated Creatinine Clearance Calc 76.27 ml/min [facility] Estimated GFR (MDRD) Amer 89 mL/min >60 [facility] Comment on above: GFR Calc Estimated GFR (MDRD) Non-Af Amer 74 mL/min >60 [facility] Comment on above: Non- GFR Calc Troponin I High Sensitivity 69 pg/mL 3.0-78.0 [facility] Comment on above: Please Note: New [place] t Units and Gender Specific Reference Ranges. For more information see Policy Stat Procedure [place] High Sensitivity Troponin (TNIH) and attachments. Platelets bldOrdered By: Dr. Bass on 01-29-2022 Platelets (Bld) [#/Vol] 166 10*3/uL 150-450 [facility] Serum or plasma calcium cory urement (mass/volume)Ordered By: Dr. Bass on 01-29-2022 Calcium [Mass/Vol] 9.0 mg/dL 8.5-10.1 [facility] Serum or plasma creatinine m easurement (mass/volume)Ordered By: Dr. Bass on 01-29-2022 Creatinine [Mass/Vol] 1.09 mg/dL 0.70-1.30 [facility] Comment on above: The validity of the calculated GFR & GFRAA in patients over 70 years has not been determined. Clinical correlation is essential. Serum or plasma urea nitroge n measurement (mass/volume)Ordered By: Dr. Bass on 01-29-2022 Urea nitrogen [Mass/Vol] 19 mg/dL 7-18 [facility] Thin prep Papanicolaou smear with manual screeningOrdered By: Dr. Bass on 01-29-2022 Thin prep Papanicolaou smear with manual screening 4 5-15 [facility] Cult, Urineon 01-27-2022 Bacteria identified Cx Nom (U) QD-Cidilqa-W [employer]la[employer] SJW 400 DO Work Phone: Laboratory - Blood bankon ABO group Nom (Bld) O MP-Ur ology-W estLuminoso SJW 400 DO Work Phone: Blood group antibody screen Ql Negative OS-Hjugsje-P ForgameW 400 DO Work Phone: Rh immune globulin screen (Bld) [Interp] Positive MP-Urology -W estlaGood Start Genetics SJW 400 DO Work Phone: TYPE + SCREENon 01-27-2022 ABO TYPE O [facility] Comment on above: Performed By: #### C #### [address] [place] [id number] RH TYPE Positive [facility] Comment on above: Performed By: #### C BC #### [address] [place] [id number] URINE CULTURE,BACTERIALon URINE CULTURE,BACTERIAL PATIENT: YEFRI BREEN LOCATION: [facility]#: [id number] : 63 AGE: SEX: M ORDERED BY: ARAVIND HERNANDEZ SOURCE: URINE COLLECTED: 01/27/22 11:26 ANTIBIOTICS AT JASMIN.: RECEIVED : 01/27/22 19:27 SITE: R E S U L T S URINE CULTURE,BACTERIAL FINAL 01/28/22 12:54 NO SIGNIFICANT GROWTH. Normal [facility] Comment on above: Performed By: #### C BC #### [place] [id number] CNPTOUTREACHon 01-23-2022 CNPTOUTREACH Normal [facility] Absolute lymphocyte countOrd ered By: Dr. Carvajal on 01-20-2022 Lymphocytes Auto (Unsp spec) [#/Vol] 1.04 10*3/uL 0.83-4.51 [facility] Basophil percentageOrdered B y: Dr. Carvajal on 01-20-2022 Basophils/100 WBC (Bld) 0.4 % 0-1 [facility] Chloride [Moles/Vol] 104 mmol/L 98-107 [facility] Eosinophils/100 WBC (Bld) 1.3 % 0-5 [facility] Glucose [Mass/Vol] 113 mg/dL 74-106 [facility] Comment on above: Fasting Glucose resu lt from 100 to 125 mg/dL suggests IMPAIRED HOMEOSTASIS per A.D.A. criteria. Neutrophils (Bld) [#/Vol] 3.0 10*3/uL 2.0-7.7 [facility] Neutrophils/100 WBC (Bld) 66.2 % 47-70 [facility] Potassium [Moles/Vol] 3.5 mmol/L 3.5-5.1 [facility] Comment on above: Moderate Hemolysis, Result may be falsely increased. Sodium [Moles/Vol] 142 mmol/L 136-145 [facility] WBC (Bld) [#/Vol] 4.5 10*3/uL 4.4-11.0 [facility] Blood erythrocytes count (nu mber/volume)Ordered By: Dr. Carvajal on 01-20-2022 RBC (Bld) [#/Vol] 5.09 10*6/uL 4.6-6.2 [facility] Blood hemoglobin measurement (mass/volume)Ordered By: Dr. Carvajal on 01-20-2022 Hemoglobin (Bld) [Mass/Vol] 15.6 g/dL 13.0-16.5 [facility] Blood lymphocytes/100 leukoc ytesOrdered By: Dr. Carvajal on 01-20-2022 Lymphocytes/100 WBC (Bld) 23.2 % 19-41 [facility] Blood monocytes/100 leukocyt esOrdered By: Dr. Carvajal on 01-20-2022 Monocytes/100 WBC (Bld) 8.5 % 0-10 [facility] Blood platelet mean volumeOr dered By: Dr. Carvajal on 01-20-2022 Platelet mean volume (Bld) [Entitic vol] 10.2 fL 6.2-12.0 [facility] Determination of erythrocyte mean corpuscular volume (MCV)Ordered By: Dr. Carvajal on 01-20-2022 MCV (RBC) [Entitic vol] 91.2 fL 80-94 [facility] EKGon 01-20-2022 Atrial Rate 127 BPM [facility] Calculated R [place] 80 degrees [facility] Calculated T [place] 77 degrees [facility] QRS Duration 102 ms [facility] QT Interval 366 ms [facility] QTC Calculation (Bazett) 459 ms [facility] Ventricular Rate [address] [facility] Atrial fibrillation Abnormal ECG No previous ECGs available Confirmed by RAINER PRINGLE MD ([id number]) on 01/20/2022 8:35:54 AM [facility] CARDIOLOGY NAME : MIREYA YANEZ PID : [id number] : 1965 Gender : Male Race : ORD : Procedure Date : Jan 19 2022 11:29:03 Edit Date : Jan 20 2022 08:35:56 Diagnosis: Atrial fibrillation Abnormal ECG No previous ECGs available Confirmed by RAINER PRINGLE MD ([id number]) on 01/20/2022 8:35:54 AM Test Reason : RT Location : 18 : CDL Overread By : RAINER PRINGLE MD Edited By : RAINER PRINGLE MD Referred By : KITTY VALDEZ Acquired by : MARCELINO CRAIN [facility] C[facility] Hematocrit Auto (Bld) [Volum e fraction]Ordered By: Dr. Carvajal on 01-20-2022 Hematocrit (Bld) [Volume fraction] 46.4 % 40-54 [facility] INR in Blood by Coagulation assayOrdered By: Dr. Carvajal on 01-20-2022 INR Coag (Bld) [Relative time] 1.5 {INR} [facility] Influenza virus A and B and SARS-CoV-2 (COVID-19) Ag panel - Upper respiratory specimOrdered By: Dr. Carvajal on 01-20-2022 SARS-CoV-2 (COVID-19) RNA SANDOVAL+probe Ql (Resp) [facility] - Chemistry and C hemistry - challengeOrdered By: Dr. Carvajal on 01-20-2022 CO2 [Moles/Vol] 30.0 mmol/L 21.0-32.0 [facility] Natriuretic peptide B (Bld) [Mass/Vol] 272.4 pg/mL 0-100 [facility] Urea nitrogen/Creatinine [Mass ratio] 12.7 mg/mg 10-20 [facility] Laboratory - CoagulationOrde red By: Dr. Carvajal on 01-20-2022 PT Coag (PPP) [Time] 17.4 s 11.7-14.9 [facility] - Hematology and Cell countsOrdered By: Dr. Carvajal on 01-20-2022 Erythrocyte distribution width (RBC) [Entitic vol] 52.1 fL 35.1-43.9 [facility] Erythrocyte distribution width (RBC) [Ratio] 15.9 % 11.6-14.6 [facility] Immature granulocytes/100 WBC (Bld) 0.400 % 0.0-0.9 [facility] Comment on above: IG% - Immature Granu locytes (promyelocytes, myelocytes and metamyelocytes) > 1% indicates that a LEFT SHIFT is Present. MCH (RBC) [Entitic mass] 30.6 pg 27.0-32.0 [facility] Nucleated RBC/100 WBC (Bld) [Ratio] 0 % 0-5 [facility] MCHC Auto (RBC) [Mass/Vol]Or dered By: Dr. Carvajal on 01-20-2022 MCHC (RBC) [Mass/Vol] 33.6 g/dL 32-36 [facility] No Panel InformationOrdered By: Dr. Carvajal on 01-20-2022 Estimated Creatinine Clearance Calc 75.58 ml/min [facility] Estimated GFR (MDRD) Amer 88 mL/min >60 [facility] Comment on above: GFR Calc Estimated GFR (MDRD) Non-Af Amer 73 mL/min >60 [facility] Comment on above: Non- GFR Calc Troponin I High Sensitivity 58 pg/mL 3.0-78.0 [facility] Comment on above: Please Note: New [place] t Units and Gender Specific Reference Ranges. For more information see Policy Stat Procedure [place] High Sensitivity Troponin (TNIH) and attachments. Platelets bldOrdered By: Dr. Carvajal on 01-20-2022 Platelets (Bld) [#/Vol] 180 10*3/uL 150-450 [facility] Serum or plasma calcium cory urement (mass/volume)Ordered By: Dr. Carvajal on 01-20-2022 Calcium [Mass/Vol] 8.8 mg/dL 8.5-10.1 [facility] Serum or plasma creatinine m easurement (mass/volume)Ordered By: Dr. Carvajal on 01-20-2022 Creatinine [Mass/Vol] 1.10 mg/dL 0.70-1.30 [facility] Comment on above: The validity of the calculated GFR & GFRAA in patients over 70 years has not been determined. Clinical correlation is essential. Serum or plasma urea nitroge n measurement (mass/volume)Ordered By: Dr. Carvajal on 01-20-2022 Urea nitrogen [Mass/Vol] 14 mg/dL 7-18 [facility] Thin prep Papanicolaou smear with manual screeningOrdered By: Dr. Carvajal on 01-20-2022 Thin prep Papanicolaou smear with manual screening 8 5-15 [facility] CNCOon 01-19-2022 CNCO Letter Text Normal [facility] EKGon 01-19-2022 Electrocardiogram Ventricular Rate : 9 5 BPM Atrial Rate : 127 BPM QRS Duration : 102 ms Q-T Interval : 366 ms QTC Calculation(Bazett) : 459 ms Calculated R Ellsworth : 80 degrees Calculated T Ellsworth : 77 degrees Atrial fibrillation Abnormal ECG No previous ECGs available Confirmed by RAINER PRINGLE MD ([id number]) on 01/20/2022 8:35:54 AM NAME : YEFRI YANEZ PID : [id number] : 1965 Gender : Male Race : ORD : Procedure Date : Jan 19 2022 11:29:03 Edit Date : Jan 20 2022 08:35:56 Diagnosis: Atrial fibrillation Abnormal ECG No previous ECGs available Confirmed by RAINER PRINGLE MD ([id number]) on 01/20/2022 8:35:54 AM Test Reason : RT Location : 18 : [facility] Overread By : RAINER PRINGLE MD Edited By : RAINER PRINGLE MD Referred By : KITTY VALDEZ Acquired by : MARCELINO CRAIN [facility] XR CHEST 2V FRONTAL/LATon XR CHEST 2V [...] Right chest wall mass is grossly stable. Horticulture Superintendent: DANITZA Transcribe Date/Time: Jan 19 2022 11:14A Dictated by : LUMA SHANKS MD This examination was interpreted and the report reviewed and electronically signed by: LUMA SHANKS MD on Jan 19 2022 11:15AM EST [id number] [facility]28[facility] Telephone ([place]) ----- YEFRI YANEZ ([id number]) 1965 M [facility] Date Time Provider Department 12/25/21 MIKAL MORRIS During your visit today, we recorded the following information about you: Abbey Nash 12/25/2021 7:45 AM Signed Patient walked in to schedule an appointment with a service architect. Patient's insurance changed was seen at [facility] but now that location is out of [...] by this patient by: SPOUSE Safia Carr, [facility] Problem List As Of Date 12/25/2021 Noted [...] Status:Closed by ADRIENNE BEACH on 12/25/21 [facility] Absolute lymphocyte counton 12-09-2021 Lymphocytes Auto (Unsp spec) [#/Vol] 1.42 10*3/uL 0.83-4.51 [facility] Work Phone: Basophil percentageon 2021 Basophil percentage 3.9 mg/dL 2.5-4.9 [facility]: Basophils/100 WBC (Bld) 0.5 % 0-1 [facility] Work Phone: Chloride [Moles/Vol] 109 mmol/L 98-107 [facility] Work Phone: Eosinophils/100 WBC (Bld) 1.5 % 0-5 [facility] Work Phone: Glucose [Mass/Vol] 121 mg/dL 74-106 [facility] Work [facility]: Comment on above: Fasting Glucose resu lt from 100 to 125 mg/dL suggests IMPAIRED HOMEOSTASIS per A.D.A. criteria. Neutrophils (Bld) [#/Vol] 4.0 10*3/uL 2.0-7.7 [facility] Work Phone: Neutrophils/100 WBC (Bld) 67.8 % 47-70 [facility] Work Phone: Potassium [Moles/Vol] 3.8 mmol/L 3.5-5.1 [facility] Work Phone: Sodium [Moles/Vol] 142 mmol/L 136-145 [facility] Work Phone: WBC (Bld) [#/Vol] 5.9 10*3/uL 4.4-11.0 [facility] Work Phone: Blood erythrocytes count (nu mber/volume)on 12-09-2021 RBC (Bld) [#/Vol] 5.22 10*6/uL 4.6-6.2 [facility] Work Phone: Blood hemoglobin measurement (mass/volume)on 12-09-2021 Hemoglobin (Bld) [Mass/Vol] 16.0 g/dL 13.0-16.5 [facility] Work Phone: Blood lymphocytes/100 leukoc yteson 12-09-2021 Lymphocytes/100 WBC (Bld) 24.1 % 19-41 [facility] Work Phone: Blood monocytes/100 leukocyt eson 12-09-2021 Monocytes/100 WBC (Bld) 5.8 % 0-10 [facility] Work Phone: Blood platelet mean volumeon 12-09-2021 Platelet mean volume (Bld) [Entitic vol] 11.1 fL 6.2-12.0 [facility] Work Phone: CNOVon 12-09-2021 CNOV Office Visit (RODRIGO ) ----- YEFRI YANEZ ([id number]) 1965 M [facility] Date Time Provider Department 12/09/21 [...] [place] [facility] As part of his work-up a [...] dist (more content not included)... Normal [facility] Determination of erythrocyte mean corpuscular volume (MCV)on 12-09-2021 MCV (RBC) [Entitic vol] 90.6 fL 80-94 [facility] Work Phone: Hematocrit Auto (Bld) [Volum e fraction]on 12-09-2021 Hematocrit (Bld) [Volume fraction] 47.3 % 40-54 [facility] Work Phone: INR in Blood by Coagulation assayon 12-09-2021 INR Coag (Bld) [Relative time] 2.4 {INR} [facility] Work Phone: Laboratory - Chemistry and C hemistry - challengeon 12-09-2021 CO2 [Moles/Vol] 26.0 mmol/L 21.0-32.0 [facility] Work Phone: [phone] Magnesium [Mass/Vol] 1.9 mg/dL 1.6-2.6 [facility] Work Phone: Urea nitrogen/Creatinine [Mass ratio] 15.0 mg/mg 10-20 [facility] Work Phone: Laboratory - Coagulationon 1 PT Coag (PPP) [Time] 25.6 s 11.7-14.9 [facility] Work Phone: Laboratory - Hematology and Cell countson 12-09-2021 Erythrocyte distribution width (RBC) [Entitic vol] 54.5 fL 35.1-43.9 [facility] Work Phone: Erythrocyte distribution width (RBC) [Ratio] 16.5 % 11.6-14.6 [facility] Work Phone: [phone] Immature granulocytes/100 WBC (Bld) 0.300 % 0.0-0.9 [facility] Work Phone: Comment on above: IG% - Immature Granu locytes (promyelocytes, myelocytes and metamyelocytes) > 1% indicates that a LEFT SHIFT is Present. MCH (RBC) [Entitic mass] 30.7 pg 27.0-32.0 [facility] Work Phone: Nucleated RBC/100 WBC (Bld) [Ratio] 0 % 0-5 [facility] Work Phone: MCHC Auto (RBC) [Mass/Vol]on 12-09-2021 MCHC (RBC) [Mass/Vol] 33.8 g/dL 32-36 [facility] Work Phone: No Panel Informationon 12-09 Estimated Creatinine Clearance Calc 74.47 ml/min [facility] Work Phone: Estimated GFR (MDRD) Amer 86 mL/min >60 [facility] Work Phone: Comment on above: GFR Calc Estimated GFR (MDRD) Non-Af Amer 71 mL/min >60 [facility] Work Phone: Comment on above: Non- GFR Calc Platelets bldon 12-09-2021 Platelets (Bld) [#/Vol] 243 10*3/uL 150-450 [facility] Work Phone: Serum or plasma calcium cory urement (mass/volume)on 12-09-2021 Calcium [Mass/Vol] 9.0 mg/dL 8.5-10.1 [facility] Work Phone: Serum or plasma creatinine m easurement (mass/volume)on 12-09-2021 Creatinine [Mass/Vol] 1.13 mg/dL 0.70-1.30 [facility] Work Phone: Comment on above: The validity of the calculated GFR & GFRAA in patients over 70 years has not been determined. Clinical correlation is essential. 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 [address] [place] [address] [place] [address] [email or web address] Normal [facility] Thin prep Papanicolaou smear with manual screeningon 12-09-2021 Thin prep Papanicolaou smear with manual screening 7 5-15 [facility] Work Phone: Absolute lymphocyte counton 12-07-2021 Lymphocytes Auto (Unsp spec) [#/Vol] 1.42 10*3/uL 0.83-4.51 [facility] Work Phone: Basophil percentageon 2021 Basophils/100 WBC (Bld) 0.5 % 0-1 [facility] Work Phone: Chloride [Moles/Vol] 108 mmol/L 98-107 [facility] Work Phone: Eosinophils/100 WBC (Bld) 0.7 % 0-5 [facility] Work Phone: Glucose [Mass/Vol] 135 mg/dL 74-106 [facility] Work Phone: Comment on above: Fasting Glucose resu lt greater than or equal to 126 mg/dL suggests DIABETES MELLITUS per A.D.A. criteria. Neutrophils (Bld) [#/Vol] 4.3 10*3/uL 2.0-7.7 [facility] Work Phone: Neutrophils/100 WBC (Bld) 70.8 % 47-70 [facility] Work Phone: Potassium [Moles/Vol] 3.5 mmol/L 3.5-5.1 [facility] Work Phone: Sodium [Moles/Vol] 142 mmol/L 136-145 [facility] Work Phone: WBC (Bld) [#/Vol] 6.1 10*3/uL 4.4-11.0 [facility] Work Phone: Blood erythrocytes count (nu mber/volume)on 12-07-2021 RBC (Bld) [#/Vol] 5.15 10*6/uL 4.6-6.2 [facility] Work Phone: Blood hemoglobin measurement (mass/volume)on 12-07-2021 Hemoglobin (Bld) [Mass/Vol] 16.0 g/dL 13.0-16.5 [facility] Work Phone: Blood lymphocytes/100 leukoc yteson 12-07-2021 Lymphocytes/100 WBC (Bld) 23.4 % 19-41 [facility] Work Phone: Blood monocytes/100 leukocyt eson 12-07-2021 Monocytes/100 WBC (Bld) 4.3 % 0-10 [facility] Work Phone: Blood platelet mean volumeon 12-07-2021 Platelet mean volume (Bld) [Entitic vol] 11.0 fL 6.2-12.0 [facility] Work Phone: Determination of erythrocyte mean corpuscular volume (MCV)on 12-07-2021 MCV (RBC) [Entitic vol] 90.5 fL 80-94 [facility] Work Phone: Hematocrit Auto (Bld) [Volum e fraction]on 12-07-2021 Hematocrit (Bld) [Volume fraction] 46.6 % 40-54 [facility] Work Phone: INR in Blood by Coagulation assayon 12-07-2021 INR Coag (Bld) [Relative time] 1.7 {INR} [facility] Work Phone: Laboratory - Chemistry and C hemistry - challengeon 12-07-2021 CO2 [Moles/Vol] 25.0 mmol/L 21.0-32.0 [facility] Work Phone: Natriuretic peptide B (Bld) [Mass/Vol] 686.4 pg/mL 0-100 [facility] Work Phone: Urea nitrogen/Creatinine [Mass ratio] 15.7 mg/mg 10-20 [facility] Work Phone: Laboratory - Coagulationon 1 PT Coag (PPP) [Time] 19.3 s 11.7-14.9 [facility] Work Phone: Laboratory - Hematology and Cell countson 12-07-2021 Erythrocyte distribution width (RBC) [Entitic vol] 54.9 fL 35.1-43.9 [facility] Work Phone: [phone] Erythrocyte distribution width (RBC) [Ratio] 16.5 % 11.6-14.6 [facility] Work Phone: [phone] Immature granulocytes/100 WBC (Bld) 0.300 % 0.0-0.9 [facility] Work Phone: [phone] Comment on above: IG% - Immature Granu locytes (promyelocytes, myelocytes and metamyelocytes) > 1% indicates that a LEFT SHIFT is Present. MCH (RBC) [Entitic mass] 31.1 pg 27.0-32.0 [facility] Work Phone: [phone] Nucleated RBC/100 WBC (Bld) [Ratio] 0 % 0-5 [facility] Work Phone: [phone] MCHC Auto (RBC) [Mass/Vol]on 12-07-2021 MCHC (RBC) [Mass/Vol] 34.3 g/dL 32-36 [facility] Work Phone: No Panel Informationon 12-07 Troponin I High Sensitivity 46 pg/mL 3.0-78.0 [facility] Work Phone: Comment on above: Please Note: New [place] t Units and Gender Specific Reference Ranges. For more information see Policy Stat Procedure [place] High Sensitivity Troponin (TNIH) and attachments. Estimated Creatinine Clearance Calc 66.26 ml/min [facility] Work Phone: [phone] Estimated GFR (MDRD) Amer 75 mL/min >60 [facility] Work Phone: [phone] Comment on above: GFR Calc Estimated GFR (MDRD) Non-Af Amer 62 mL/min >60 [facility] Work Phone: [phone] Comment on above: Non- GFR Calc Troponin I High Sensitivity 45 pg/mL 3.0-78.0 [facility] Work Phone: [phone] Comment on above: Please Note: New [place] t Units and Gender Specific Reference Ranges. For more information see Policy Stat Procedure [place] High Sensitivity Troponin (TNIH) and attachments. Platelets bldon 12-07-2021 Platelets (Bld) [#/Vol] 231 10*3/uL 150-450 [facility] Work Phone: Serum or plasma calcium cory urement (mass/volume)on 12-07-2021 Calcium [Mass/Vol] 9.6 mg/dL 8.5-10.1 [facility] Work Phone: Serum or plasma creatinine m easurement (mass/volume)on 12-07-2021 Creatinine [Mass/Vol] 1.27 mg/dL 0.70-1.30 [facility] Work Phone: Comment on above: The validity of the calculated GFR & GFRAA in patients over 70 years has not been determined. Clinical correlation is essential. Serum or plasma urea nitroge n measurement (mass/volume)on 12-07-2021 Urea nitrogen [Mass/Vol] 20 mg/dL 7-18 [facility] Work Phone: Thin prep Papanicolaou smear with manual screeningon 12-07-2021 Thin prep Papanicolaou smear with manual screening 9 5-15 [facility] Work Phone: [facility] CNPNon 11-29-2021 [facility] Telephone ([facility]) ----- YEFRI YANEZ ([id number]) 1965 M [facility] Date Time Provider Department 11/24/21 AMERICA SCHWARTZ [facility] During your visit today, we recorded the [...] by this patient by: SPOUSE Safia Carr, [facility] Problem List As Of Date 11/24/2021 Noted [...] Status:Closed by AMERICA SCHWARTZ on 11/25/21 [facility] CNPNon 11-23-2021 CNPN Normal [facility] CT ABD/PEL W IVCONon 022 CT ABD/PEL W IVCON Normal [facility] CT CHEST W IVCONon 2 CT CHEST W IVCON Normal [facility] No Panel Informationon 11-20 [facility] CNOVSPon 11-19-2021 CNOVSP Visit (SP) Office ([facility]) ----- YEFRI YANEZ ([id number]) 1965 M [facility] Date Time Provider Department 11/19/21 9:00 AM HAYLEE WILBURN [facility] During your visit today, we recorded the following information about you: Pulse Respiration Blood pressure Weight 76/minute 18/minute 130/82 118.8 kg Height 1.778 m [facility] [place] 11/19/2021 9:58 AM Signed This note was created using Lattice Power[employer]. Subjective Yefri Yanez is a 56 year [...] Wilburn MD 11/19/2021 9:58 AM Signed [facility] Progress Note SERVICE DATE: November 19, [...] started treatment with cabo + nivo on [facility] 182 Trial on 08/08/2021 at [facility]. He has baseline HTN and developed worsening HTN after starting treatment. His cabo was held on 08/18/2021, resumed on 09/11/2021. The Nivo was held on 09/11/21 due to pneumonitis, and prednisone 60 mg daily was started and tapered off within about one month. Due to insurance change, he was taken off the trial and referred to [facility] to resume the treatment. He was [...] Rhythm: No (more content not included)... Normal [facility] 11-06-2021 [facility] Telephone ([facility]) ----- YEFRI YANEZ ([id number]) 1965 M [facility] Date Time Provider Department 11/06/21 HAYLEE WILBURN [facility] During your visit today, we recorded the following information about you: Tania Parekh RN 11/06/2021 9:32 AM Signed Spoke with parts counter representative from [facility], she is asking that we reach [...] by this patient by: SPOUSE Safia Carr [facility] Problem List As Of Date 11/06/2021 Noted [...] Status:Closed by TANIA PAREKH on 11/06/21 [facility] CNPN Telephone ([facility]) ----- YEFRI YANEZ ([id number]) 1965 M [facility] Date Time Provider Department 11/06/21 AMERICA SCHWARTZ [facility] During your visit today, we recorded the following information about you: Allergies As of Date: 11/06/2021 Noted Allergy Reaction LISINOPRIL 09/01/2012 18 - Angioedema SHELLFISH CONTAINING PRODUCTS 06/04/2019 10 - Anaphylaxis 4 - Hives ASPIRIN 07/21/2004 5 - Intolerance MUSHROOM 08/05/2021 4 - Hives PENICILLINS 11/01/2003 5 - Intolerance Date Reviewed: 10/27/2021 Reviewed by: Lisa Christensen PA-C - Fully Assessed Reason for Visit: Fine Grader - Other [0519] Cmt: Calling to get an update on [...] by this patient by: SPOUSE Safia Carr, [facility] Problem List As Of Date 11/06/2021 Noted [...] Status:Closed by AMERICA SCHWARTZ on 11/06/21 [facility] Dougie 11-03-2021 [facility] Telephone ([facility]) ----- YEFRI YANEZ ([id number]) 1965 M [facility] Date Time Provider Department 11/03/21 HAYLEE WILBURN [facility] During your visit today, we recorded the [...] by this patient by: SPOUSE Safia Carr [facility] Problem List As Of Date 11/03/2021 Noted [...] Status:Closed by AMERICA SCHWARTZ on 11/03/21 [facility] CNPN Telephone ([facility]) ----- YEFRI YANEZ ([id number]) 1965 M [facility] Date Time Provider Department 11/03/21 HAYLEE WILBURN [facility] During your visit today, we recorded the [...] by this patient by: SPOUSE Safia Carr [facility] Problem List As Of Date 11/03/2021 Noted [...] Status:Closed by AMERICA SCHWARTZ on 11/03/21 [facility] CBC W Auto Differential pane l (Bld)on 10-27-2021 Basophils (Bld) [#/Vol] 0.03 10*3/uL Normal <0.11 [facility] Comment on above: Order Comment: Speci men Type: BLOOD SPECIMENOrdering Facility: [facility] Address: [address] [place] [address] Performed By: #### 5 7021-8 ####[facility] LABCLIA [id number] [address] Basophils/100 WBC (Bld) 0.6 % Normal [facility] Comment on above: Order Comment: Speci men Type: BLOOD SPECIMENOrdering Facility: [facility] Address: [address] [place], [place] [id number] Performed By: #### 5 7021-8 ####[facility] LABCLIA [id number] [place] [address] [place] Differential cell count method Nom (Bld) Auto Normal [facility] Comment on above: Order Comment: Speci men Type: BLOOD SPECIMENOrdering Facility: [facility] Address: [address] [place], [place] [id number] Performed By: #### 5 7021-8 ####[facility] LABCLIA [id number] [place] [address] [place] Eosinophils (Bld) [#/Vol] 0.03 10*3/uL Normal <0.46 [facility] Comment on above: Order Comment: Speci men Type: BLOOD SPECIMENOrdering Facility: [facility] Address: [address] [place], [place] [address] Performed By: #### 5 7021-8 ####[facility] LABCLIA [id number] [address] [place] Eosinophils/100 WBC (Bld) 0.6 % Normal [facility] Comment on above: Order Comment: Speci men Type: BLOOD SPECIMENOrdering Facility: [facility] Address: [address] [place] [address] Performed By: #### 5 7021-8 ####[facility] LABCLIA [id number] [place] [address] [place] Erythrocyte distribution width (RBC) [Ratio] 16.6 % High 11.5-15.0 [facility] Comment on above: Order Comment: Speci men Type: BLOOD SPECIMENOrdering Facility: [facility] Address: [address] [place], [place] [id number] Performed By: #### 5 7021-8 ####[facility] LABIA [id number] [address] Hematocrit (Bld) [Volume fraction] 48.6 % Normal 39.0-51.0 [facility] Comment on above: Order Comment: Speci men Type: BLOOD SPECIMENOrdering Facility: [facility] Address: [address] [place], [place] [id number] Performed By: #### 5 7021-8 ####[facility] LABIA [id number] [address] Hemoglobin (Bld) [Mass/Vol] 16.3 g/dL Normal 13.0-17.0 [facility] Comment on above: Order Comment: Speci men Type: BLOOD SPECIMENOrdering Facility: [facility] Address: [address] [place], [place] [address] Performed By: #### 5 7021-8 ####[facility] [id number] [address] IMMATURE GRAN % 0.8 % Normal [facility] Comment on above: Order Comment: Speci men Type: BLOOD SPECIMENOrdering Facility: [facility] Address: [address] [place], [place] [address] Performed By: #### 5 7021-8 ####[facility] LABIA [id number] [address] STATES OF [facility] IMMATURE GRAN ABS 0.04 k/uL Normal <0.10 [facility] Comment on above: Order Comment: Speci men Type: BLOOD SPECIMENOrdering Facility: [facility] Address: [address] [place], [place] [address] Performed By: #### 5 7021-8 ####[facility] LABIA [id number] [address] Lymphocytes (Bld) [#/Vol] 1.62 10*3/uL Normal 1.00-4.00 [facility] Comment on above: Order Comment: Speci men Type: BLOOD SPECIMENOrdering Facility: [facility] Address: [address] [place], [place] [address] Performed By: #### 5 7021-8 ####[facility] LABCLIA [id number] [address] [place] Lymphocytes/100 WBC (Bld) 32.0 % Normal [facility] Comment on above: Order Comment: Speci men Type: BLOOD SPECIMENOrdering Facility: [facility] Address: [address] [place], [place] [address] Performed By: #### 5 7021-8 ####[facility] LABIA [id number] [address] STATES OF [facility] MCH (RBC) [Entitic mass] 30.0 pg Normal 26.0-34.0 [facility] Comment on above: Order Comment: Speci men Type: BLOOD SPECIMENOrdering Facility: [facility] Address: [address] [place], [place] [address] Performed By: #### 5 7021-8 ####[facility] LABIA [id number] [address] STATES OF [facility] MCHC (RBC) [Mass/Vol] 33.5 g/dL Normal 30.5-36.0 [facility] Comment on above: Order Comment: Speci men Type: BLOOD SPECIMENOrdering Facility: [facility] Address: [address] [place], [place] [address] Performed By: #### 5 7021-8 ####[facility] LABCLIA [id number] [address] [place] MCV (RBC) [Entitic vol] 89.3 fL Normal 80.0-100.0 [facility] Comment on above: Order Comment: Speci men Type: BLOOD SPECIMENOrdering Facility: [facility] Address: [address] [place], [place] [address] Performed By: #### 5 7021-8 ####[facility] LABCLIA [id number] [place] [address] [place] Monocytes (Bld) [#/Vol] 0.44 10*3/uL Normal <0.87 [facility] Comment on above: Order Comment: Speci men Type: BLOOD SPECIMENOrdering Facility: [facility] Address: [address] [place], [place] [address] Performed By: #### 5 7021-8 ####[facility] LABCLIA [id number] [address] [place] Monocytes/100 WBC (Bld) 8.7 % Normal [facility] Comment on above: Order Comment: Speci men Type: BLOOD SPECIMENOrdering Facility: [facility] Address: [address] [place], [place] [address] Performed By: #### 5 7021-8 ####[facility] LABCLIA [id number] [place] [address] [place] Neutrophils (Bld) [#/Vol] 2.90 10*3/uL Normal 1.45-7.50 [facility] Comment on above: Order Comment: Speci men Type: BLOOD SPECIMENOrdering Facility: [facility] Address: [address] [place], [place] [address] Performed By: #### 5 7021-8 ####[facility] LABCLIA [id number] [place] [address] [place] Neutrophils/100 WBC (Bld) 57.3 % Normal [facility] Comment on above: Order Comment: Speci men Type: BLOOD SPECIMENOrdering Facility: [facility] Address: [address] [place], [place] [address] Performed By: #### 5 7021-8 ####[facility] LABCLIA [id number] [place] [address] [place] Nucleated RBC (Bld) [#/Vol] 10*3/uL Normal <0.01 [facility] Comment on above: Order Comment: Speci men Type: BLOOD SPECIMENOrdering Facility: [facility] Address: [address] [place], [place] [address] Performed By: #### 5 7021-8 ####[facility] LABIA [id number] [place] [address] [place] Nucleated RBC/100 WBC (Bld) [Ratio] 0.0 /100 WBC Normal [facility] Comment on above: Order Comment: Speci men Type: BLOOD SPECIMENOrdering Facility: [facility] Address: [address] [place], [place] [address] Performed By: #### 5 7021-8 ####[facility] [id number] [place] [address] [place] Platelet mean volume (Bld) [Entitic vol] 10.6 fL Normal 9.0-12.7 [facility] Comment on above: Order Comment: Speci men Type: BLOOD SPECIMENOrdering Facility: [facility] Address: [address] [place], [place] [address] Performed By: #### 5 7021-8 ####[facility]WH[facility] [id number] [place] [address] [place] Platelets (Bld) [#/Vol] 237 10*3/uL Normal 150-400 [facility] Comment on above: Order Comment: Speci men Type: BLOOD SPECIMENOrdering Facility: [facility] Address: [address] [place], [place] [address] Performed By: #### 5 7021-8 ####[facility] LABIA [id number] [place] [address] [place] RBC (Bld) [#/Vol] 5.44 10*6/uL Normal 4.20-6.00 [facility] Comment on above: Order Comment: Speci men Type: BLOOD SPECIMENOrdering Facility: [facility] Address: [address] [place] [address] Performed By: #### 5 7021-8 ####[facility] LABCLIA [id number] [place] [address] [place] WBC (Bld) [#/Vol] 5.06 10*3/uL Normal 3.70-11.00 [facility] Comment on above: Order Comment: Speci men Type: BLOOD SPECIMENOrdering Facility: [facility] Address: [address] [place] [address] Performed By: #### 5 7021-8 ####[facility] LABCLIA [id number] [place] [address] [place] CNPNon 10-27-2021 CNPN Normal [facility] CONFIRM BLOOD TYPEon 022 ABO O Normal [facility] Comment on above: Order Comment: Speci men Type: BLOOD SPECIMENOrdering Facility: [facility] Address: [address] [place] [address] Performed By: #### C ONABO ####[facility] BLOOD BANKCLIA [id number] [place] [address] [place] Rh Nom (Bld) Positive Normal [facility] Comment on above: Order Comment: Speci men Type: BLOOD SPECIMENOrdering Facility: [facility] Address: [address] [place] [address] Performed By: #### C ONABO ####[facility] BLOOD BANKCLIA [id number] [place] [address] [place] Comprehensive metabolic 2000 panelon 10-27-2021 Albumin [Mass/Vol] 3.8 g/dL Low 3.9-4.9 [facility] Comment on above: Order Comment: Speci men Type: BLOOD SPECIMENOrdering Facility: [facility] Address: [address] [place], [place] [address] Performed By: #### 2 4323-8, 3016-3 ####[facility] LABCLIA [id number] [place] [address] [place] ALP [Catalytic activity/Vol] 54 U/L Normal 38-113 [facility] Comment on above: Order Comment: Speci men Type: BLOOD SPECIMENOrdering Facility: [facility] Address: [address] [place], [place] [address] Performed By: #### 2 4323-8, 3016-3 ####[facility] LABCLIA [id number] [address] [place] ALT [Catalytic activity/Vol] 20 U/L Normal 10-54 [facility] Comment on above: Order Comment: Speci men Type: BLOOD SPECIMENOrdering Facility: [facility] Address: [address] [place], [place] [address] Performed By: #### 2 4323-8, 3016-3 ####[facility] LABIA [id number] [place] [address] [place] Anion gap [Moles/Vol] 11 mmol/L Normal 9-18 [facility] Comment on above: Order Comment: Speci men Type: BLOOD SPECIMENOrdering Facility: [facility] Address: [address] [place] [address] Performed By: #### 2 4323-8, 3016-3 ####[facility] LABCLIA [id number] [place] [address] [place] AST [Catalytic activity/Vol] 22 U/L Normal 14-40 [facility] Comment on above: Order Comment: Speci men Type: BLOOD SPECIMENOrdering Facility: [facility] Address: [address] [place] [address] Performed By: #### 2 4323-8, 3016-3 ####[facility] LABCLIA [id number] [facility] [place] [place] [address] [place] Bilirubin [Mass/Vol] 0.5 mg/dL Normal 0.2-1.3 [facility] Comment on above: Order Comment: Speci men Type: BLOOD SPECIMENOrdering Facility: [facility] Address: [address] [place], [place] [address] Performed By: #### 2 432-8, 3015-3 ####[facility] LABCLIA [id number] [facility] [address] [place] Calcium [Mass/Vol] 9.6 mg/dL Normal 8.5-10.2 [facility] Comment on above: Order Comment: Speci men Type: BLOOD SPECIMENOrdering Facility: [facility] Address: [address] [place], [place] [address] Performed By: #### 2 4328, 3015-3 ####[facility] LABCLIA [id number] [facility] [address] [place] Chloride [Moles/Vol] 101 mmol/L Normal 97-105 [facility] Comment on above: Order Comment: Speci men Type: BLOOD SPECIMENOrdering Facility: [facility] Address: [address] [place], [place] [address] Performed By: #### 2 4328, 3015-3 ####[facility] LABCLIA [id number] [facility] [place] [id number] [place] CO2 [Moles/Vol] 28 mmol/L Normal 22-30 [facility] Comment on above: Order Comment: Speci men Type: BLOOD SPECIMENOrdering Facility: [facility] Address: [address] [place] [address] Performed By: #### 2 4323-8, 3015-3 ####[facility] LABCLIA [id number] [address] [place] Creatinine [Mass/Vol] 1.07 mg/dL Normal 0.73-1.22 [facility] Comment on above: Order Comment: Aaliyah gibson Type: BLOOD SPECIMENOrdering Facility: [facility] Address: [address] [place] [address] Performed By: #### 2 4323-8, 3016-3 ####[facility] LABIA [id number] [address] OF [place] ESTIMATED GLOMERULAR FILTRATION RATE 81 mL/min/1.73m??? Normal >=60 [facility] Comment on above: Order Comment: Aaliyah gibson Type: BLOOD SPECIMENOrdering Facility: [facility] Address: [address] [place] [address] Result Comment: Laurita mated Glomerular Filtration Rate [...] GFR. Performed By: #### 2 4323-8, 6-3 ####[facility] LABCLIA [id number] [place] [address] [place] Glucose [Mass/Vol] 111 mg/dL High 74-99 [facility] Comment on above: Order Comment: Aaliyah gibson Type: BLOOD SPECIMENOrdering Facility: [facility] Address: [address] [address] Result Comment: The [place] [employer] (ADA) provides guidance for cutoff [...] Standards of Medical Care in Diabetes 2016, [place] [employer]. Diabetes Care. 2016.39(Suppl 1). Performed By: #### 2 4323-8, 6-3 ####[facility] LABCLIA [id number] [place] [address] [place] Potassium [Moles/Vol] 3.5 mmol/L Low 3.7-5.1 [facility] Comment on above: Order Comment: Speci men Type: BLOOD SPECIMENOrdering Facility: [facility] Address: [address] [place] [address] Performed By: #### 2 432-8, 3015-3 ####[facility] LABCLIA [id number] [place] [address] [place] Protein [Mass/Vol] 6.8 g/dL Normal 6.3-8.0 [facility] Comment on above: Order Comment: Speci men Type: BLOOD SPECIMENOrdering Facility: [facility] Address: [address] [place], [place] [address] Performed By: #### 2 4323-8, 3 ####[facility] LABCLIA [id number] [place] [address] [place] Sodium [Moles/Vol] 140 mmol/L Normal 136-144 [facility] Comment on above: Order Comment: Speci men Type: BLOOD SPECIMENOrdering Facility: [facility] Address: [address] [place] [address] Performed By: #### 2 4323-8, 3015-3 ####[facility] LABCLIA [id number] [address] [address] [place] Urea nitrogen [Mass/Vol] 9 mg/dL Normal 9-24 [facility] Comment on above: Order Comment: Speci men Type: BLOOD SPECIMENOrdering Facility: [facility] Address: [address] [place] [address] Performed By: #### 2 4323-8, 3016-3 ####[facility] LABCLIA [id number] [place] [address] [place] ECG COMPLETEon 10-27-2021 ECG COMPLETE Normal [facility] HISTORY PHYSICALon HISTORY PHYSICAL Normal [facility] PT panel Coag (PPP)on 2021 INR Coag (PPP) [Relative time] 2.2 {INR} High 0.9-1.3 [facility] Comment on above: Order Comment: Spectricia gibson Type: BLOOD SPECIMENOrdering Facility: [facility] Address: [address] [place] [address] Result Comment: Constanza min K Antagonist (VKA) Therapeutic Range: INR 2 to 3 (Target INR of 2.5)Note: For patients treated with VKA drugs, such as warfarin, the [place] [employer] 2012 Guideline recommends [...] Chest 2012, 141:7S-47SLuis Aimkhalida RA, et al. [facility] 2017, 70: 252-289 Performed By: #### 3 4528-0, 42869-5 ####[facility] LABCLIA [id number] [place] [address] [place] PT Coag (PPP) [Time] 22.4 s High 9.7-13.0 [facility] Comment on above: Order Comment: Speci men Type: BLOOD SPECIMENOrdering Facility: [facility] Address: [address] [place] [address] Performed By: #### 3 4528-0, 13588-0 ####[facility] LABCLIA [id number] [address] [place] TSH SerPl-aCncon 10-27-2021 TSH Qn 1.530 m[IU]/L Normal 0.270-4.20 0 [facility] Comment on above: Order Comment: Speci men Type: BLOOD SPECIMENOrdering Facility: [facility] Address: [address] [place] [address] Performed By: #### 2 4323-8, 3016-3 ####[facility] LABCLIA [id number] [address] [place] TYPE AND SCREEN,30 DAYon ABO O Normal [facility] Comment on above: Order Comment: Speci men Type: BLOOD SPECIMENOrdering Facility: [facility] Address: [address] [place], [place] [address] Performed By: #### T SCR30 ####[facility] BLOOD BANKCLIA [id number] [address] [place] HISTORICAL AB SCR STATUS Negative Normal [facility] Comment on above: Order Comment: Speci men Type: BLOOD SPECIMENOrdering Facility: [facility] Address: [address] [place], [place] [address] Performed By: #### T SCR30 ####[facility] BLOOD BANKCLIA [id number] [place] [address] [place] Rh Nom (Bld) Positive Normal [facility] Comment on above: Order Comment: Speci men Type: BLOOD SPECIMENOrdering Facility: [facility] Address: [address] [place], [place] [address] Performed By: #### T SCR30 ####[facility] BLOOD BANKCLIA [id number] [address] [place] aPTT PPPon 10-27-2021 aPTT Coag (PPP) [Time] 35.8 s High 23.0-32.4 [facility] Comment on above: Order Comment: Speci men Type: BLOOD SPECIMENOrdering Facility: [facility] Address: [address] [place] [address] Performed By: #### 3 4528-0, 02220-7 ####[facility] LABCLIA [id number] [address] OF [facility] CNPNon 10-21-2021 CNPN Telephone ([facility]) ----- YEFRI YANEZ ([id number]) 1965 M [facility] Date Time Provider Department 10/21/21 HAYLEE WILBURN [facility] During your visit today, we recorded the [...] for cabzantinib and sent new order to [facility] speciality pharmacy. Prescriptions as of 10/21/2021 [...] by this patient by: SPOUSE Safia Carr, [facility] Problem List As Of Date 10/21/2021 Noted [...] Status:Closed by AMERICA SCHWARTZ on 10/21/21 [facility] CNOVSPon 10-20-2021 CNOVSP Visit (SP) Office ([facility]) ----- YEFRI YANEZ ([id number]) 1965 M [facility] Date Time Provider Department 10/20/21 2:30 PM HAYLEE WILBURN [facility] During your visit today, we recorded the following information about you: Pulse Respiration Blood pressure Weight 60/minute 16/minute 130/78 115.2 kg Height 1.854 m Haylee Wilburn MD 10/21/2021 9:38 AM Signed [facility] On[facility] Consult Note SERVICE DATE: October 20, [...] taken off the trial and referred to [facility] to resume the treatment. He is [...] Tobacco comments (more content not included)... [facility] CNCOon 10-16-2021 CNCO Letter Text [facility] CNPNon 10-16-2021 CNPN [facility] CNPNon 10-14-2021 CNPN [facility] CBC W Auto Differential pane l (Bld)on 10-09-2021 Basophils (Bld) [#/Vol] 10*3/uL Normal <0.11 C [facility] Comment on above: Order Comment: Speci men Type: BLOOD SPECIMENOrdering Facility: [facility] Address: [address] [place], [place] [address] Performed By: #### 5 7021-8 ####[facility] [id number] [place] [address] STATES [facility] Basophils/100 WBC (Bld) 0.3 % Normal [facility] Comment on above: Order Comment: Speci men Type: BLOOD SPECIMENOrdering Facility: [facility] Address: [address] [place], [place] [address] Performed By: #### 5 7021-8 ####[facility] [id number] [place] [address] [place] Differential cell count method Nom (Bld) Auto Normal [facility] Comment on above: Order Comment: Speci men Type: BLOOD SPECIMENOrdering Facility: [facility] Address: [address] [place], [place] [address] Performed By: #### 5 7021-8 ####[facility] [id number] [place] [address] [place] Eosinophils (Bld) [#/Vol] 0.03 10*3/uL Normal <0.46 [facility] Comment on above: Order Comment: Speci men Type: BLOOD SPECIMENOrdering Facility: [facility] Address: [address] [place], [place] [address] Performed By: #### 5 7021-8 ####[facility] [id number] [place] [address] STATES OF [facility] Eosinophils/100 WBC (Bld) 0.4 % Normal [facility] Comment on above: Order Comment: Speci men Type: BLOOD SPECIMENOrdering Facility: [facility] Address: [address] [place], [place] [address] Performed By: #### 5 7021-8 ####[facility] [id number] [place] [address] [place] Erythrocyte distribution width (RBC) [Ratio] 17.2 % High 11.5-15.0 [facility] Comment on above: Order Comment: Speci men Type: BLOOD SPECIMENOrdering Facility: [facility] Address: [address] [place] [address] Performed By: #### 5 7021-8 ####[facility] [id number] [place] [address] OF [facility] Hematocrit (Bld) [Volume fraction] 46.8 % Normal 39.0-51.0 [facility] Comment on above: Order Comment: Speci men Type: BLOOD SPECIMENOrdering Facility: [facility] Address: [address] [place] [address] Performed By: #### 5 7021-8 ####[facility] [id number] [place] [address] OF [facility] Hemoglobin (Bld) [Mass/Vol] 15.5 g/dL Normal 13.0-17.0 [facility] Comment on above: Order Comment: Speci men Type: BLOOD SPECIMENOrdering Facility: [facility] Address: [address] [place], [place] [address] Performed By: #### 5 7021-8 ####[facility] [id number] [place] [address] OF [facility] IMMATURE GRAN % 0.8 % Normal [facility] Comment on above: Order Comment: Speci men Type: BLOOD SPECIMENOrdering Facility: [facility] Address: [address] [place], [place] [address] Performed By: #### 5 7021-8 ####[facility] [id number] [place] [address] IMMATURE GRAN ABS 0.06 k/uL Normal <0.10 [facility] Comment on above: Order Comment: Speci men Type: BLOOD SPECIMENOrdering Facility: [facility] Address: [address] [place], [place] [address] Performed By: #### 5 7021-8 ####[facility] [id number] [address] Lymphocytes (Bld) [#/Vol] 2.33 10*3/uL Normal 1.00-4.00 [facility] Comment on above: Order Comment: Speci men Type: BLOOD SPECIMENOrdering Facility: [facility] Address: [address] [place], [place] [address] Performed By: #### 5 7021-8 ####[facility] [id number] [place] [address] [place] Lymphocytes/100 WBC (Bld) 32.3 % Normal [facility] Comment on above: Order Comment: Speci men Type: BLOOD SPECIMENOrdering Facility: [facility] Address: [address] [place] [address] Performed By: #### 5 7021-8 ####[facility] [id number] [place] [address] [place] MCH (RBC) [Entitic mass] 30.2 pg Normal 26.0-34.0 [facility] Comment on above: Order Comment: Speci men Type: BLOOD SPECIMENOrdering Facility: [facility] Address: [address] [place], [place] [address] Performed By: #### 5 7021-8 ####[facility] [id number] [address] [place] MCHC (RBC) [Mass/Vol] 33.1 g/dL Normal 30.5-36.0 [facility] Comment on above: Order Comment: Speci men Type: BLOOD SPECIMENOrdering Facility: [facility] Address: [address] [place], [place] [address] Performed By: #### 5 7021-8 ####[facility] [id number] [place] [address] [place] MCV (RBC) [Entitic vol] 91.2 fL Normal 80.0-100.0 C [facility] Comment on above: Order Comment: Speci men Type: BLOOD SPECIMENOrdering Facility: [facility] Address: [address] [place] [address] Performed By: #### 5 7021-8 ####[facility] [id number] [place] [address] [place] Monocytes (Bld) [#/Vol] 0.35 10*3/uL Normal <0.87 [facility] Comment on above: Order Comment: Speci men Type: BLOOD SPECIMENOrdering Facility: [facility] Address: [address] [place] [address] Performed By: #### 5 7021-8 ####[facility] [id number] [place] [address] [place] Monocytes/100 WBC (Bld) 4.8 % Normal C [facility] Comment on above: Order Comment: Speci men Type: BLOOD SPECIMENOrdering Facility: [facility] Address: [address] [place] [address] Performed By: #### 5 7021-8 ####[facility] [id number] [place] [address] [place] Neutrophils (Bld) [#/Vol] 4.43 10*3/uL Normal 1.45-7.50 [facility] Comment on above: Order Comment: Speci men Type: BLOOD SPECIMENOrdering Facility: [facility] Address: [address] [place] [address] Performed By: #### 5 7021-8 ####[facility] [id number] [place] [address] [place] Neutrophils/100 WBC (Bld) 61.4 % Normal [facility] Comment on above: Order Comment: Speci men Type: BLOOD SPECIMENOrdering Facility: [facility] Address: [address] [place], [place] [address] Performed By: #### 5 7021-8 ####[facility] [id number] [address] [place] Nucleated RBC (Bld) [#/Vol] 10*3/uL Normal <0.01 [facility] Comment on above: Order Comment: Speci men Type: BLOOD SPECIMENOrdering Facility: [facility] Address: [address] [place], [place] [address] Performed By: #### 5 7021-8 ####[facility] [id number] [place] [address] [place] Nucleated RBC/100 WBC (Bld) [Ratio] 0.0 /100 WBC Normal [facility] Comment on above: Order Comment: Speci men Type: BLOOD SPECIMENOrdering Facility: [facility] Address: [address] [place], [place] [address] Performed By: #### 5 7021-8 ####[facility] [id number] [place] [address] [place] Platelet mean volume (Bld) [Entitic vol] 9.1 fL Normal 9.0-12.7 [facility] Comment on above: Order Comment: Speci men Type: BLOOD SPECIMENOrdering Facility: [facility] Address: [address] [place] [address] Performed By: #### 5 7021-8 ####[facility] [id number] [place] [address] [place] Platelets (Bld) [#/Vol] 243 10*3/uL Normal 150-400 [facility] Comment on above: Order Comment: Speci men Type: BLOOD SPECIMENOrdering Facility: [facility] Address: [address] [place] [address] Performed By: #### 5 7021-8 ####[facility] [id number] [place] [address] [place] RBC (Bld) [#/Vol] 5.13 10*6/uL Normal 4.20-6.00 [facility] Comment on above: Order Comment: Speci men Type: BLOOD SPECIMENOrdering Facility: [facility] Address: [address] [place], [place] [id number] Performed By: #### 5 7021-8 ####[facility] [id number] [place] [address] WBC (Bld) [#/Vol] 7.22 10*3/uL Normal 3.70-11.00 [facility] Comment on above: Order Comment: Speci men Type: BLOOD SPECIMENOrdering Facility: [facility] Address: [address] [place], [place] [id number] Performed By: #### 5 7021-8 ####[facility] [id number] [place] [address] [place] CNNURSEon 10-09-2021 CNNURSE Normal [facility] CNOVSPon 10-09-2021 CNOVSP Normal [facility] Comprehensive metabolic 2000 panelon 10-09-2021 Albumin [Mass/Vol] 4.0 g/dL Normal 3.9-4.9 [facility] Comment on above: Order Comment: Speci men Type: BLOOD SPECIMENOrdering Facility: [facility] Address: [address] [place], [place] [address] Performed By: #### 2 4323-8, 3084-1, 06139-7 ####[facility] [id number] [place] [address] [place] ALP [Catalytic activity/Vol] 89 U/L Normal 38-113 [facility] Comment on above: Order Comment: Speci men Type: BLOOD SPECIMENOrdering Facility: [facility] Address: [address] [place], [place] [address] Performed By: #### 2 4323-8, 308-1, ####[facility] [id number] [place] [address] [place] ALT [Catalytic activity/Vol] 50 U/L Normal 10-54 [facility] Comment on above: Order Comment: Speci men Type: BLOOD SPECIMENOrdering Facility: [facility] Address: [address] [place], [place] [address] Performed By: #### 2 4323-8, 3083-, ####[facility] [id number] [place] [address] [place] Anion gap [Moles/Vol] 9 mmol/L Normal 9-18 [facility] Comment on above: Order Comment: Speci men Type: BLOOD SPECIMENOrdering Facility: [facility] Address: [address] [place], [place] [address] Performed By: #### 2 4323-8, 3083-03, ####[facility] [id number] [place] [address] [place] AST [Catalytic activity/Vol] 24 U/L Normal 14-40 [facility] Comment on above: Order Comment: Speci men Type: BLOOD SPECIMENOrdering Facility: [facility] Address: [address] [place] [address] Performed By: #### 2 4323-8, 1, ####[facility] [id number] [place] [address] [place] Bilirubin [Mass/Vol] 0.3 mg/dL Normal 0.2-1.3 [facility] Comment on above: Order Comment: Speci men Type: BLOOD SPECIMENOrdering Facility: [facility] Address: [address] [place] [address] Performed By: #### 2 4323-8, 3084-1, ####[facility] [id number] [place] [address] [place] Calcium [Mass/Vol] 9.3 mg/dL Normal 8.5-10.2 [facility] Comment on above: Order Comment: Speci men Type: BLOOD SPECIMENOrdering Facility: [facility] Address: [address] [place], [place] [address] Performed By: #### 2 4323-8, 3084-1, ####[facility] [id number] [place] [address] [place] Chloride [Moles/Vol] 104 mmol/L Normal 97-105 [facility] Comment on above: Order Comment: Speci men Type: BLOOD SPECIMENOrdering Facility: [facility] Address: [address] [place], [place] [address] Performed By: #### 2 4323-8, 308-1, ####[facility] [id number] [place] [address] [place] CO2 [Moles/Vol] 28 mmol/L Normal 22-30 [facility] Comment on above: Order Comment: Speci men Type: BLOOD SPECIMENOrdering Facility: [facility] Address: [address] [place], [place] [address] Performed By: #### 2 4323-8, 308-1, ####[facility] [id number] [place] [address] [place] Creatinine [Mass/Vol] 1.19 mg/dL Normal 0.73-1.22 [facility] Comment on above: Order Comment: Speci men Type: BLOOD SPECIMENOrdering Facility: [facility] Address: [address] [place], [place] [address] Performed By: #### 2 4323-8, 3084-1, 56293-4 ####[facility] [id number] [address] OF [facility] ESTIMATED GLOMERULAR FILTRATION RATE 71 mL/min/1.73m??? Normal >=60 [facility] Comment on above: Order Comment: Aaliyah gibson Type: BLOOD SPECIMENOrdering Facility: [facility] Address: [address] [place], [place] [address] Result Comment: Laurita mated Glomerular Filtration Rate [...] GFR. Performed By: #### 2 4323-8, 3084-, ####[facility] [id number] [address] OF [facility] Glucose [Mass/Vol] 131 mg/dL High 74-99 [facility] Comment on above: Order Comment: Aaliyah gibson Type: BLOOD SPECIMENOrdering Facility: [facility] Address: [address] [place], [place] [address] Result Comment: The [place] [employer] (ADA) provides guidance for cutoff [...] Standards of Medical Care in Diabetes 2016, [place] [employer]. Diabetes Care. 2016.39(Suppl 1). Performed By: #### 2 4323-8, 3083-03, ####[facility] [id number] [place] [address] [place] Potassium [Moles/Vol] 4.0 mmol/L Normal 3.7-5.1 [facility] Comment on above: Order Comment: Speci men Type: BLOOD SPECIMENOrdering Facility: [facility] Address: [address] [place], [place] [address] Performed By: #### 2 4323-8, 3083-03, ####[facility] [id number] [place] [address] [place] Protein [Mass/Vol] 6.4 g/dL Normal 6.3-8.0 [facility] Comment on above: Order Comment: Speci men Type: BLOOD SPECIMENOrdering Facility: [facility] Address: [address] [place], [place] [address] Performed By: #### 2 4323-8, 3083-03, ####[facility] [id number] [place] [address] [place] Sodium [Moles/Vol] 141 mmol/L Normal 136-144 [facility] Comment on above: Order Comment: Speci men Type: BLOOD SPECIMENOrdering Facility: [facility] Address: [address] [place] [address] Performed By: #### 2 4323-8, 3083-03, ####[facility] [id number] [place] [id number] [place] Urea nitrogen [Mass/Vol] 19 mg/dL Normal 9-24 [facility] Comment on above: Order Comment: Speci men Type: BLOOD SPECIMENOrdering Facility: [facility] Address: [address] [place] [address] Performed By: #### 2 4323-8, 3083-03, ####[facility] [id number] [place] [address] [place] LDH SerPl-cCncon 10-09-2021 LDH [Catalytic activity/Vol] 348 U/L High 135-225 [facility] Comment on above: Order Comment: Aaliyah gibson Type: BLOOD SPECIMENOrdering Facility: [facility] Address: [address] [place] [address] Performed By: #### 2 532-0 ####[facility] [id number] [place] [address] [place] Magnesium SerPl-mCncon 10-09 Magnesium [Mass/Vol] 2.2 mg/dL Normal 1.7-2.3 [facility] Comment on above: Order Comment: Aaliyah gibson Type: BLOOD SPECIMENOrdering Facility: [facility] Address: [address] [place] [address] Performed By: #### 2 4323-8, 3084-1, 73269-4 ####[facility] [id number] [place] [address] PT panel Coag (PPP)on 2021 INR Coag (PPP) [Relative time] 2.8 {INR} High 0.9-1.3 [facility] Comment on above: Order Comment: Aaliyah gibson Type: BLOOD SPECIMENOrdering Facility: [facility] Address: [address] [place] [address] Result Comment: Constanza min K Antagonist (VKA) Therapeutic Range: INR 2 to 3 (Target INR of 2.5)Note: For patients treated with VKA drugs, such as warfarin, the [place] [employer] 2012 Guideline recommends [...] al. Chest 2012, 141:7S-47SNishimura RA, et al. [facility] 2017, 70: 252-289 Performed By: #### 1 4979-9, 02107-3 ####[facility] [id number] [place] [address] [place] PT Coag (PPP) [Time] 27.9 s High 9.7-13.0 [facility] Comment on above: Order Comment: Speci men Type: BLOOD SPECIMENOrdering Facility: [facility] Address: [address] [place] [address] Performed By: #### 1 4979-9, 02041-4 ####[facility] [id number] [place] [address] [place] Phosphate SerPl-mCncon 10-09 Phosphate [Mass/Vol] 3.4 mg/dL Normal 2.7-4.8 [facility] Comment on above: Order Comment: Speci men Type: BLOOD SPECIMENOrdering Facility: [facility] Address: [address] [place] [address] Performed By: #### 2 777-1 ####[facility] [id number] [place] [address] [place] T3Free SerPl-mCncon 10-10-19 22 Free T3 [Mass/Vol] 3.0 pg/mL Normal 2.3-4.1 [facility] Comment on above: Order Comment: Speci men Type: BLOOD SPECIMENOrdering Facility: [facility] Address: [address] [place] [address] Performed By: #### 3 051-0, 3024-7 ####[facility] [id number] [place] [address] [place] T4 Free SerPl-mCncon 022 Free T4 [Mass/Vol] 1.2 ng/dL Normal 0.9-1.7 [facility] Comment on above: Order Comment: Speci men Type: BLOOD SPECIMENOrdering Facility: [facility] Address: [address] [place] [address] Performed By: #### 3 051-0, 3024-7 ####[facility] [id number] [place] [address] [place] TSH SerPl-aCncon 10-09-2021 TSH Qn 0.925 m[IU]/L Normal 0.270-4.20 0 [facility] Comment on above: Order Comment: Speci men Type: BLOOD SPECIMENOrdering Facility: [facility] Address: [address] [place] [address] Performed By: #### 3 016-3 ####[facility] [id number] [address] [place] Urate SerPl-mCncon 2 Urate [Mass/Vol] 8.3 mg/dL High 4.0-8.1 [facility] Comment on above: Order Comment: Speci men Type: BLOOD SPECIMENOrdering Facility: [facility] Address: [address] [place], [place] [address] Performed By: #### 2 4323-8, 3084-1, 02565-6 ####[facility] [id number] [place] [address] [place] aPTT PPPon 10-09-2021 aPTT Coag (PPP) [Time] 31.7 s Normal 23.0-32.4 [facility] Comment on above: Order Comment: Speci men Type: BLOOD SPECIMENOrdering Facility: [facility] Address: [address] [place], [place] [address] Performed By: #### 1 4979-9, 21876-5 ####[facility] LABCL[facility] [id number] [place] [address] [place] CNPNon 09-29-2021 CNPN Normal [facility] CNPTOUTREACHon 09-29-2021 CNPTOUTREACH Normal [facility] Basic metabolic 2000 panelon 09-26-2021 Anion gap [Moles/Vol] 6 mmol/L Low 9-18 [facility] Comment on above: Order Comment: Speci men Type: BLOOD SPECIMENOrdering Facility: [facility] Address: [address] [place], [place] [address] Performed By: #### 2 4321-2 ####[facility]CL[facility] [id number] [place] [address] [place] Calcium [Mass/Vol] 9.9 mg/dL Normal 8.5-10.2 [facility] Comment on above: Order Comment: Speci men Type: BLOOD SPECIMENOrdering Facility: [facility] Address: [address] [place], [place] [address] Performed By: #### 2 4321-2 ####[facility]CL[facility] [id number] [place] [address] [place] Chloride [Moles/Vol] 98 mmol/L Normal 97-105 [facility] Comment on above: Order Comment: Speci men Type: BLOOD SPECIMENOrdering Facility: [facility] Address: [address] [place] [id number] Performed By: #### 2 4321-2 ####[facility] [id number] [place] [address] [place] CO2 [Moles/Vol] 38 mmol/L High 22-30 [facility] Comment on above: Order Comment: Speci men Type: BLOOD SPECIMENOrdering Facility: [facility] Address: [address] [place] [phone] Performed By: #### 2 4321-2 ####[facility] [id number] [address] STATES OF [facility] Creatinine [Mass/Vol] 1.07 mg/dL Normal 0.73-1.22 [facility] Comment on above: Order Comment: Speci men Type: BLOOD SPECIMENOrdering Facility: [facility] Address: [address] [place], [place] [address] Performed By: #### 2 4321-2 ####[facility] [id number] [address] [place] ESTIMATED GLOMERULAR FILTRATION RATE 81 mL/min/1.73m??? Normal >=60 [facility] Comment on above: Order Comment: Ronyi men Type: BLOOD SPECIMENOrdering Facility: [facility] Address: [address] [place] [address] Result Comment: Laurita mated Glomerular Filtration Rate [...] actual GFR. Performed By: #### 2 4321-2 ####[facility] [id number] [place] [address] [place] Glucose [Mass/Vol] 127 mg/dL High 74-99 [facility] Comment on above: Order Comment: Speci men Type: BLOOD SPECIMENOrdering Facility: [facility] Address: [address] [place], [place] [address] Result Comment: The [place] [employer] (ADA) provides guidance for cutoff [...] Standards of Medical Care in Diabetes 2016, [place] [employer]. Diabetes Care. 2016.39(Suppl 1). Performed By: #### 2 4321-2 ####[facility] LABCLIA [id number] [place] [address] [place] Potassium [Moles/Vol] 3.7 mmol/L Normal 3.7-5.1 [facility] Comment on above: Order Comment: Ronyi paige Type: BLOOD SPECIMENOrdering Facility: [facility] Address: [address] [place] [address] Performed By: #### 2 4321-2 ####[facility] [id number] [place] [address] [place] Sodium [Moles/Vol] 142 mmol/L Normal 136-144 [facility] Comment on above: Order Comment: Aaliyah gibson Type: BLOOD SPECIMENOrdering Facility: [facility] Address: [address] [place] [address] Performed By: #### 2 4321-2 ####[facility] LABCLIA [id number] [place] [address] [place] Urea nitrogen [Mass/Vol] 27 mg/dL High 9-24 [facility] Comment on above: Order Comment: Ronyi men Type: BLOOD SPECIMENOrdering Facility: [facility] Address: [address] [place] [address] Performed By: #### 2 4321-2 ####[facility] LABCLIA [id number] [place] [address] [place] CBC panel Auto (Bld)on 09-26 Erythrocyte distribution width (RBC) [Ratio] 17.2 % High 11.5-15.0 [facility] Comment on above: Order Comment: Speci men Type: BLOOD SPECIMENOrdering Facility: [facility] Address: [address] [place], [place] [address] Performed By: #### 5 8410-2 ####[facility] [id number] [place] [address] [place] Hematocrit (Bld) [Volume fraction] 41.7 % Normal 39.0-51.0 [facility] Comment on above: Order Comment: Speci men Type: BLOOD SPECIMENOrdering Facility: [facility] Address: [address] [place], [place] [address] Performed By: #### 5 8410-2 ####[facility] [id number] [place] [address] [place] Hemoglobin (Bld) [Mass/Vol] 13.4 g/dL Normal 13.0-17.0 [facility] Comment on above: Order Comment: Speci men Type: BLOOD SPECIMENOrdering Facility: [facility] Address: [address] [place], [place] [address] Performed By: #### 5 8410-2 ####[facility] [id number] [place] [address] [place] MCH (RBC) [Entitic mass] 29.8 pg Normal 26.0-34.0 [facility] Comment on above: Order Comment: Speci men Type: BLOOD SPECIMENOrdering Facility: [facility] Address: [address] [place], [place] [address] Performed By: #### 5 8410-2 ####[facility] [id number] [place] [address] [place] MCHC (RBC) [Mass/Vol] 32.1 g/dL Normal 30.5-36.0 [facility] Comment on above: Order Comment: Speci men Type: BLOOD SPECIMENOrdering Facility: [facility] Address: [address] [place] [address] Performed By: #### 5 8410-2 ####[facility] LABCLIA [id number] [address] STATES [facility] MCV (RBC) [Entitic vol] 92.7 fL Normal 80.0-100.0 [facility] Comment on above: Order Comment: Speci men Type: BLOOD SPECIMENOrdering Facility: [facility] Address: [address] [place], [place] [address] Performed By: #### 5 8410-2 ####[facility]IA [id number] [address] STATES [place] Nucleated RBC (Bld) [#/Vol] 0.02 10*3/uL High <0.01 [facility] Comment on above: Order Comment: Speci men Type: BLOOD SPECIMENOrdering Facility: [facility] Address: [address] [place], [place] [address] Performed By: #### 5 8410-2 ####[facility] LABIA [id number] [address] OF [place] Platelet mean volume (Bld) [Entitic vol] 10.4 fL Normal 9.0-12.7 [facility] Comment on above: Order Comment: Speci men Type: BLOOD SPECIMENOrdering Facility: [facility] Address: [address] [place] [address] Performed By: #### 5 8410-2 ####[facility] [id number] [place] [address] [place] Platelets (Bld) [#/Vol] 177 10*3/uL Normal 150-400 [facility] Comment on above: Order Comment: Speci men Type: BLOOD SPECIMENOrdering Facility: [facility] Address: [address] [place], [place] [address] Performed By: #### 5 8410-2 ####[facility] LABCLIA [id number] [place] [address] [place] RBC (Bld) [#/Vol] 4.50 10*6/uL Normal 4.20-6.00 [facility] Comment on above: Order Comment: Speci men Type: BLOOD SPECIMENOrdering Facility: [facility] Address: [address] [place] [address] Performed By: #### 5 8410-2 ####[facility] [id number] [place] [address] [place] WBC (Bld) [#/Vol] 9.26 10*3/uL Normal 3.70-11.00 [facility] Comment on above: Order Comment: Speci men Type: BLOOD SPECIMENOrdering Facility: [facility] Address: [address] [place] [address] Performed By: #### 5 8410-2 ####[facility]IA [id number] [address] [place] CNDSon 09-26-2021 CNDS Normal [facility] ECG COMPLETEon 09-26-2021 ECG COMPLETE Normal [facility] ECHOLon 09-26-2021 ECHOL Normal [facility] NURSING PROGon 09-26-2021 NURSING PROG Normal [facility] PT EDon 09-26-2021 PT ED Normal [facility] PT panel Coag (PPP)on 2021 INR Coag (PPP) [Relative time] 1.3 {INR} Normal 0.9-1.3 [facility] Comment on above: Order Comment: Speci men Type: BLOOD SPECIMENOrdering Facility: [facility] Address: [address] [place] [address] Result Comment: Constanza min K Antagonist (VKA) Therapeutic Range: INR 2 to 3 (Target INR of 2.5)Note: For patients treated with VKA drugs, such as warfarin, the [place] [employer] 2012 Guideline recommends [...] al. Chest 2012, 141:7S-47SNishnini RA, et al. [facility] 2017, 70: 252-289 Performed By: #### 3 4528-0 ####[facility]IA [id number] [place] [address] [place] PT Coag (PPP) [Time] 13.5 s High 9.7-13.0 [facility] Comment on above: Order Comment: Speci men Type: BLOOD SPECIMENOrdering Facility: [facility] Address: [address] [place] [phone] Performed By: #### 3 4528-0 ####[facility] [id number] [place] [address] [place] ANES POSTPROC EVALon 022 ANES POSTPROC EVAL Normal [facility] ANES PRE-OPon 09-25-2021 ANES PRE-OP Normal [facility] Basic metabolic 2000 panelon 09-25-2021 Anion gap [Moles/Vol] 10 mmol/L Normal 9-18 [facility] Comment on above: Order Comment: Speci men Type: BLOOD SPECIMENOrdering Facility: [facility] Address: [address] [place] [address] Performed By: #### 1 9123-9, 45621-8 ####[facility]IA [id number] [place] [address] [place] Calcium [Mass/Vol] 9.4 mg/dL Normal 8.5-10.2 [facility] Comment on above: Order Comment: Speci men Type: BLOOD SPECIMENOrdering Facility: [facility] Address: [address] [place], [place] [address] Performed By: #### 1 9123-9, 47668-9 ####[facility] LABCLIA [id number] [place] [address] [place] Chloride [Moles/Vol] 99 mmol/L Normal 97-105 [facility] Comment on above: Order Comment: Speci men Type: BLOOD SPECIMENOrdering Facility: [facility] Address: [address] [place], [place] [address] Performed By: #### 1 9123-9, 98083-1 ####[facility] LABCLIA [id number] [place] [address] [place] CO2 [Moles/Vol] 31 mmol/L High 22-30 [facility] Comment on above: Order Comment: Speci men Type: BLOOD SPECIMENOrdering Facility: [facility] Address: [address] [place], [place] [address] Performed By: #### 1 91239, 82636-3 ####[facility] LABCL[facility] [id number] [place] [address] [place] Creatinine [Mass/Vol] 0.95 mg/dL Normal 0.73-1.22 [facility] Comment on above: Order Comment: Speci men Type: BLOOD SPECIMENOrdering Facility: [facility] Address: [address] [place], [place] [address] Performed By: #### 1 9123-9, 99978-5 ####[facility] LABCLIA [id number] [place] [address] [place] ESTIMATED GLOMERULAR FILTRATION RATE 93 mL/min/1.73m??? Normal >=60 [facility] Comment on above: Order Comment: Speci men Type: BLOOD SPECIMENOrdering Facility: [facility] Address: [address] [place] [address] Result Comment: Laurita mated Glomerular Filtration Rate [...] actual GFR. Performed By: #### 1 9123-9, 20666-6 ####[facility] LABIA [id number] [place] [id number] [place] Glucose [Mass/Vol] 116 mg/dL High 74-99 [facility] Comment on above: Order Comment: Aaliyah gibson Type: BLOOD SPECIMENOrdering Facility: [facility] Address: [address] [place] [address] Result Comment: The [place] [employer] (ADA) provides guidance for cutoff [...] Standards of Medical Care in Diabetes 2016, [place] [employer]. Diabetes Care. 2016.39(Suppl 1). Performed By: #### 1 9123-9, 52317-2 ####[facility] LABIA [id number] [place] [id number] [place] Potassium [Moles/Vol] 3.8 mmol/L Normal 3.7-5.1 [facility] Comment on above: Order Comment: Aaliyah gibson Type: BLOOD SPECIMENOrdering Facility: [facility] Address: [address] [id number] Performed By: #### 1 9123-9, 37957-8 ####[facility] LABCLIA [id number] [place] [address] [place] Sodium [Moles/Vol] 140 mmol/L Normal 136-144 [facility] Comment on above: Order Comment: Speci men Type: BLOOD SPECIMENOrdering Facility: [facility] Address: [address] [place], [place] [id number] Performed By: #### 1 9123-9, 57995-0 ####[facility] LABCLIA [id number] [place] [address] [place] Urea nitrogen [Mass/Vol] 24 mg/dL Normal 9-24 [facility] Comment on above: Order Comment: Speci men Type: BLOOD SPECIMENOrdering Facility: [facility] Address: [address] [place], [place] [address] Performed By: #### 1 9123-9, 30025-0 ####[facility] LABIA [id number] [place] [address] [place] CASE MANAGEMon 09-25-2021 CASE MANAGEM Normal [facility] CBC panel Auto (Bld)on 09-25 Erythrocyte distribution width (RBC) [Ratio] 17.1 % High 11.5-15.0 [facility] Comment on above: Order Comment: Speci men Type: BLOOD SPECIMENOrdering Facility: [facility] Address: [address] [place], [place] [address] Performed By: #### 5 8410-2 ####[facility] LABIA [id number] [place] [address] [place] Hematocrit (Bld) [Volume fraction] 41.6 % Normal 39.0-51.0 [facility] Comment on above: Order Comment: Speci men Type: BLOOD SPECIMENOrdering Facility: [facility] Address: [address] [place], [place] [address] Performed By: #### 5 8410-2 ####[facility] [id number] [place] [address] [place] Hemoglobin (Bld) [Mass/Vol] 13.7 g/dL Normal 13.0-17.0 [facility] Comment on above: Order Comment: Speci men Type: BLOOD SPECIMENOrdering Facility: [facility] Address: [address] [place], [place] [address] Performed By: #### 5 8410-2 ####[facility] [id number] [place] [address] [place] MCH (RBC) [Entitic mass] 30.3 pg Normal 26.0-34.0 [facility] Comment on above: Order Comment: Speci men Type: BLOOD SPECIMENOrdering Facility: [facility] Address: [address] [place], [place] [address] Performed By: #### 5 8410-2 ####[facility] [id number] [address] [place] MCHC (RBC) [Mass/Vol] 32.9 g/dL Normal 30.5-36.0 [facility] Comment on above: Order Comment: Speci men Type: BLOOD SPECIMENOrdering Facility: [facility] Address: [address] [place], [place] [address] Performed By: #### 5 8410-2 ####[facility]IA [id number] [address] [place] MCV (RBC) [Entitic vol] 92.0 fL Normal 80.0-100.0 [facility] Comment on above: Order Comment: Speci men Type: BLOOD SPECIMENOrdering Facility: [facility] Address: [address] [place], [place] [address] Performed By: #### 5 8410-2 ####[facility] [id number] [place] [address] [place] Nucleated RBC (Bld) [#/Vol] 0.03 10*3/uL High <0.01 [facility] Comment on above: Order Comment: Speci men Type: BLOOD SPECIMENOrdering Facility: [facility] Address: [address] [place], [place] [address] Performed By: #### 5 8410-2 ####[facility] LABCLIA [id number] [place] [address] [place] Platelet mean volume (Bld) [Entitic vol] 10.2 fL Normal 9.0-12.7 [facility] Comment on above: Order Comment: Speci men Type: BLOOD SPECIMENOrdering Facility: [facility] Address: [address] [place] [address] Performed By: #### 5 8410-2 ####[facility] LABCLIA [id number] [place] [address] [place] Platelets (Bld) [#/Vol] 175 10*3/uL Normal 150-400 [facility] Comment on above: Order Comment: Speci men Type: BLOOD SPECIMENOrdering Facility: [facility] Address: [address] [place], [place] [address] Performed By: #### 5 8410-2 ####[facility] LABCLIA [id number] [place] [address] [place] RBC (Bld) [#/Vol] 4.52 10*6/uL Normal 4.20-6.00 [facility] Comment on above: Order Comment: Speci men Type: BLOOD SPECIMENOrdering Facility: [facility] Address: [address] [place], [place] [address] Performed By: #### 5 8410-2 ####[facility] LABCLIA [id number] [place] [address] [place] WBC (Bld) [#/Vol] 10.86 10*3/uL Normal 3.70-11.00 [facility] Comment on above: Order Comment: Speci men Type: BLOOD SPECIMENOrdering Facility: [facility] Address: [address] [place] [address] Performed By: #### 5 8410-2 ####[facility] [id number] [place] [address] [place] CNOVon 09-25-2021 CNOV Normal [facility] PNC18ny 09-25-2021 ECG01 Normal [facility] Magnesium SerPl-mCncon 09-25 Magnesium [Mass/Vol] 2.2 mg/dL Normal 1.7-2.3 [facility] Comment on above: Order Comment: Speci men Type: BLOOD SPECIMENOrdering Facility: [facility] Address: [address] [place] [address] Performed By: #### 1 9123-9, 08361-6 ####[facility] [id number] [place] [address] [place] POTASSIUM BLDon 09-25-2021 Potassium [Moles/Vol] 4.5 mmol/L Normal 3.7-5.1 [facility] Comment on above: Order Comment: Speci men Type: BLOOD SPECIMENOrdering Facility: [facility] Address: [address] [place] [address] Performed By: #### K 1 ####[facility] [id number] [place] [address] [place] PT EDon 09-25-2021 PT ED Normal [facility] PT panel Coag (PPP)on 2021 INR Coag (PPP) [Relative time] 1.2 {INR} Normal 0.9-1.3 [facility] Comment on above: Order Comment: Speci men Type: BLOOD SPECIMENOrdering Facility: [facility] Address: [address], [place] [address] Result Comment: Constanza min K Antagonist (VKA) Therapeutic Range: INR 2 to 3 (Target INR of 2.5)Note: For patients treated with VKA drugs, such as warfarin, the [place] [employer] 2012 Guideline recommends [...] al. Chest 2012, 141:7S-47SCaitie RA, et al. [facility] 2017, 70: 252-289 Performed By: #### 3 4528-0 ####[facility] LABCLIA [id number] [place] [address] [place] PT Coag (PPP) [Time] 12.7 s Normal 9.7-13.0 [facility] Comment on above: Order Comment: Speci men Type: BLOOD SPECIMENOrdering Facility: [facility] Address: [address] [id number] Performed By: #### 3 4528-0 ####[facility] LABCLIA [id number] [place] [address] [place] TEEon 09-25-2021 LISA Normal [facility] Basic metabolic 2000 panelon 09-24-2021 Anion gap [Moles/Vol] 12 mmol/L Normal 9-18 [facility] Comment on above: Order Comment: Speci men Type: BLOOD SPECIMENOrdering Facility: [facility] Address: [address] [place] [address] Performed By: #### 1 9123-9, 57234-7 ####[facility] LABCLIA [id number] [place] [address] [place] Calcium [Mass/Vol] 9.0 mg/dL Normal 8.5-10.2 [facility] Comment on above: Order Comment: Speci men Type: BLOOD SPECIMENOrdering Facility: [facility] Address: [address] [place], [place] [address] Performed By: #### 1 9123-9, 83331-2 ####[facility] LABCLIA [id number] [place] [address] [place] Chloride [Moles/Vol] 100 mmol/L Normal 97-105 [facility] Comment on above: Order Comment: Speci men Type: BLOOD SPECIMENOrdering Facility: [facility] Address: [address] [place] [address] Performed By: #### 1 9123-9, 47889-0 ####[facility] LABCLIA [id number] [place] [address] [place] CO2 [Moles/Vol] 29 mmol/L Normal 22-30 [facility] Comment on above: Order Comment: Speci men Type: BLOOD SPECIMENOrdering Facility: [facility] Address: [address] [place], [place] [address] Performed By: #### 1 9123-9, 46446-1 ####[facility] LABCLIA [id number] [place] [address] [place] Creatinine [Mass/Vol] 1.08 mg/dL Normal 0.73-1.22 [facility] Comment on above: Order Comment: Speci men Type: BLOOD SPECIMENOrdering Facility: [facility] Address: [address] [place], [place] [address] Performed By: #### 1 9123-9, 56683-4 ####[facility] LABCLIA [id number] [place] [address] [place] ESTIMATED GLOMERULAR FILTRATION RATE 80 mL/min/1.73m??? Normal >=60 [facility] Comment on above: Order Comment: Aaliyah igbson Type: BLOOD SPECIMENOrdering Facility: [facility] Address: [address] [place] [address] Result Comment: Laurita mated Glomerular Filtration Rate [...] actual GFR. Performed By: #### 1 9123-9, 57179-6 ####[facility] [id number] [place] [address] [place] Glucose [Mass/Vol] 150 mg/dL High 74-99 [facility] Comment on above: Order Comment: Aaliyah gibson Type: BLOOD SPECIMENOrdering Facility: [facility] Address: [address] [place] [address] Result Comment: The [place] [employer] (ADA) provides guidance for cutoff [...] Standards of Medical Care in Diabetes 2016, [place] [employer]. Diabetes Care. 2016.39(Suppl 1). Performed By: #### 1 9123-9, 64142-6 ####[facility] [id number] [place] [address] [place] Potassium [Moles/Vol] 3.5 mmol/L Low 3.7-5.1 [facility] Comment on above: Order Comment: Aaliyah gibson Type: BLOOD SPECIMENOrdering Facility: [facility] Address: [address] [place], [place] [address] Performed By: #### 1 9123-9, 60689-7 ####[facility] [id number] [place] [address] [place] Sodium [Moles/Vol] 141 mmol/L Normal 136-144 [facility] Comment on above: Order Comment: Speci men Type: BLOOD SPECIMENOrdering Facility: [facility] Address: [address] [place], [place] [address] Performed By: #### 1 9123-9, 79606-6 ####[facility] [id number] [place] [address] [place] Urea nitrogen [Mass/Vol] 22 mg/dL Normal 9-24 [facility] Comment on above: Order Comment: Speci men Type: BLOOD SPECIMENOrdering Facility: [facility] Address: [address] [place], [place] [address] Performed By: #### 1 9123-9, 27834-7 ####[facility] [id number] [place] [address] [place] CBC panel Auto (Bld)on 09-24 Erythrocyte distribution width (RBC) [Ratio] 17.2 % High 11.5-15.0 [facility] Comment on above: Order Comment: Speci men Type: BLOOD SPECIMENOrdering Facility: [facility] Address: [address] [place], [place] [address] Performed By: #### 5 8410-2 ####[facility] [id number] [place] [address] [place] Hematocrit (Bld) [Volume fraction] 42.3 % Normal 39.0-51.0 [facility] Comment on above: Order Comment: Speci men Type: BLOOD SPECIMENOrdering Facility: [facility] Address: [address] [place], [place] [address] Performed By: #### 5 8410-2 ####[facility] [id number] [place] [address] [place] Hemoglobin (Bld) [Mass/Vol] 13.6 g/dL Normal 13.0-17.0 [facility] Comment on above: Order Comment: Speci men Type: BLOOD SPECIMENOrdering Facility: [facility] Address: [address] [place], [place] [address] Performed By: #### 5 8410-2 ####[facility] [id number] [place] [address] [place] MCH (RBC) [Entitic mass] 30.0 pg Normal 26.0-34.0 [facility] Comment on above: Order Comment: Speci men Type: BLOOD SPECIMENOrdering Facility: [facility] Address: [address] [place], [place] [address] Performed By: #### 5 8410-2 ####[facility]IA [id number] [place] [address] [place] MCHC (RBC) [Mass/Vol] 32.2 g/dL Normal 30.5-36.0 [facility] Comment on above: Order Comment: Speci men Type: BLOOD SPECIMENOrdering Facility: [facility] Address: [address] [place], [place] [address] Performed By: #### 5 8410-2 ####[facility] [id number] [place] [address] [place] MCV (RBC) [Entitic vol] 93.4 fL Normal 80.0-100.0 [facility] Comment on above: Order Comment: Speci men Type: BLOOD SPECIMENOrdering Facility: [facility] Address: [address] [place], [place] [address] Performed By: #### 5 8410-2 ####[facility] [id number] [place] [address] [place] Nucleated RBC (Bld) [#/Vol] 10*3/uL Normal <0.01 [facility] Comment on above: Order Comment: Speci men Type: BLOOD SPECIMENOrdering Facility: [facility] Address: [address] [place], [place] [address] Performed By: #### 5 8410-2 ####[facility] LABCLIA [id number] [place] [address] [place] Platelet mean volume (Bld) [Entitic vol] 10.1 fL Normal 9.0-12.7 [facility] Comment on above: Order Comment: Speci men Type: BLOOD SPECIMENOrdering Facility: [facility] Address: [address] [place] [address] Performed By: #### 5 8410-2 ####[facility] LABCLIA [id number] [place] [address] [place] Platelets (Bld) [#/Vol] 186 10*3/uL Normal 150-400 [facility] Comment on above: Order Comment: Speci men Type: BLOOD SPECIMENOrdering Facility: [facility] Address: [address] [place], [place] [address] Performed By: #### 5 8410-2 ####[facility] LABCLIA [id number] [place] [address] [place] RBC (Bld) [#/Vol] 4.53 10*6/uL Normal 4.20-6.00 [facility] Comment on above: Order Comment: Speci men Type: BLOOD SPECIMENOrdering Facility: [facility] Address: [address] [place], [place] [address] Performed By: #### 5 8410-2 ####[facility] LABCLIA [id number] [place] [address] [place] WBC (Bld) [#/Vol] 9.42 10*3/uL Normal 3.70-11.00 [facility] Comment on above: Order Comment: Speci men Type: BLOOD SPECIMENOrdering Facility: [facility] Address: [address] [place] [address] Performed By: #### 5 8410-2 ####[facility] LABCLIA [id number] [place] [address] [place] Magnesium SerPl-mCncon 09-24 Magnesium [Mass/Vol] 2.1 mg/dL Normal 1.7-2.3 [facility] Comment on above: Order Comment: Speci men Type: BLOOD SPECIMENOrdering Facility: [facility] Address: [address] [place] [address] Performed By: #### 1 9123-9, 98463-5 ####[facility] LABCLIA [id number] [place] [address] [place] POTASSIUM BLDon 09-24-2021 Potassium [Moles/Vol] 3.7 mmol/L Normal 3.7-5.1 [facility] Comment on above: Order Comment: Speci men Type: BLOOD SPECIMENOrdering Facility: [facility] Address: [address] [place] [address] Performed By: #### K 1 ####[facility] [id number] [place] [address] [place] PT EDon 09-24-2021 PT ED Normal [facility] PT panel Coag (PPP)on 2021 INR Coag (PPP) [Relative time] 1.2 {INR} Normal 0.9-1.3 [facility] Comment on above: Order Comment: Speci men Type: BLOOD SPECIMENOrdering Facility: [facility] Address: [address] [place] [address] Result Comment: Constanza min K Antagonist (VKA) Therapeutic Range: INR 2 to 3 (Target INR of 2.5)Note: For patients treated with VKA drugs, such as warfarin, the [place] [employer] 2012 Guideline recommends [...] al. Chest 2012, 141:7S-47SNishimura RA, et al. [facility] 2017, 70: 252-289 Performed By: #### 3 4528-0 ####[facility] [id number] [place] [address] [place] PT Coag (PPP) [Time] 12.3 s Normal 9.7-13.0 [facility] Comment on above: Order Comment: Speci men Type: BLOOD SPECIMENOrdering Facility: [facility] Address: [address] [address] Performed By: #### 3 4528-0 ####[facility] [id number] [place] [address] [place] PTT, ANTICOAGULANT THERAPYon 09-24-2021 aPTT Coag (PPP) [Time] 34.3 s High 23.0-32.4 [facility] Comment on above: Order Comment: Speci men Type: BLOOD SPECIMENOrdering Facility: [facility] Address: [address] [address] Performed By: #### P TTA ####[facility]IA [id number] [address] [place] aPTT Coag (PPP) [Time] 53.2 s High 23.0-32.4 [facility] Comment on above: Order Comment: Speci men Type: BLOOD SPECIMENOrdering Facility: [facility] Address: [address] [place], [place] [address] Performed By: #### P TTA ####[facility] LABCLIA [id number] [address] [address] [place] Basic metabolic 2000 panelon 09-23-2021 Anion gap [Moles/Vol] 9 mmol/L Normal 9-18 [facility] Comment on above: Order Comment: Speci men Type: BLOOD SPECIMENOrdering Facility: [facility] Address: [address] [place], [place] [address] Performed By: #### 3 016-3, 83589-5, 19013-1, ####[facility] [id number] [place] [address] [place] Calcium [Mass/Vol] 9.1 mg/dL Normal 8.5-10.2 [facility] Comment on above: Order Comment: Speci men Type: BLOOD SPECIMENOrdering Facility: [facility] Address: [address] [place], [place] [address] Performed By: #### 3 016-3, 10044-4, 32701-3, ####[facility] LABCLIA [id number] [place] [address] [place] Chloride [Moles/Vol] 100 mmol/L Normal 97-105 [facility] Comment on above: Order Comment: Speci men Type: BLOOD SPECIMENOrdering Facility: [facility] Address: [address] [place], [place] [phone] Performed By: #### 3 016-3, 01824-6, 43162-3, ####[facility] LABCLIA [id number] [place] [id number] [place] CO2 [Moles/Vol] 32 mmol/L High 22-30 [facility] Comment on above: Order Comment: Speci men Type: BLOOD SPECIMENOrdering Facility: [facility] Address: [address] [place], [place] [phone] Performed By: #### 3 016-3, 94292-9, 86682-7, ####[facility] LABCLIA [id number] [place] [address] [place] Creatinine [Mass/Vol] 1.20 mg/dL Normal 0.73-1.22 [facility] Comment on above: Order Comment: Speci men Type: BLOOD SPECIMENOrdering Facility: [facility] Address: [address] [place], [place] [address] Performed By: #### 3 016-3, 22634-0, 18471-9, ####[facility]IA [id number] [place] [address] [place] ESTIMATED GLOMERULAR FILTRATION RATE 71 mL/min/1.73m??? Normal >=60 [facility] Comment on above: Order Comment: Speci men Type: BLOOD SPECIMENOrdering Facility: [facility] Address: [address] [place] [address] Result Comment: Laurita mated Glomerular Filtration Rate [...] actual GFR. Performed By: #### 3 016-3, 86870-9, 55379-0, ####[facility] [id number] [place] [address] [place] Glucose [Mass/Vol] 133 mg/dL High 74-99 [facility] Comment on above: Order Comment: Speci men Type: BLOOD SPECIMENOrdering Facility: [facility] Address: [address] [place], [place] [address] Result Comment: The [place] [employer] (ADA) provides guidance for cutoff [...] Standards of Medical Care in Diabetes 2016, [place] [employer]. Diabetes Care. 2016.39(Suppl 1). Performed By: #### 3 016-3, 50105-0, 97984-6, ####[facility] LABCLIA [id number] [place] [address] [place] Potassium [Moles/Vol] 3.1 mmol/L Low 3.7-5.1 [facility] Comment on above: Order Comment: Speci men Type: BLOOD SPECIMENOrdering Facility: [facility] Address: [address] [place] [address] Performed By: #### 3 016-3, 52040-1, 62258-0, ####[facility]IA [id number] [place] [address] [place] Sodium [Moles/Vol] 141 mmol/L Normal 136-144 [facility] Comment on above: Order Comment: Speci men Type: BLOOD SPECIMENOrdering Facility: [facility] Address: [address] [place] [address] Performed By: #### 3 016-3, 44951-8, 22156-7, ####[facility] LABCLIA [id number] [place] [address] [place] Urea nitrogen [Mass/Vol] 22 mg/dL Normal 9-24 [facility] Comment on above: Order Comment: Speci men Type: BLOOD SPECIMENOrdering Facility: [facility] Address: [address] [place] [address] Performed By: #### 3 016-3, 43612-1, 28134-3, 72635-5 ####[facility] LABCLIA [id number] [place] [address] [place] CASE MGT INIT ASSESon 2021 CASE MGT INIT ASSES Normal [facility] CBC W Auto Differential pane l (Bld)on 09-23-2021 Basophils (Bld) [#/Vol] 10*3/uL Normal <0.11 [facility] Comment on above: Order Comment: Speci men Type: BLOOD SPECIMENOrdering Facility: [facility] Address: [address] [place] [address] Performed By: #### 5 7021-8 ####[facility] LABCLIA [id number] [place] [address] [place] Basophils/100 WBC (Bld) 0.1 % Normal [facility] Comment on above: Order Comment: Speci men Type: BLOOD SPECIMENOrdering Facility: [facility] Address: [address] [place] [address] Performed By: #### 5 7021-8 ####[facility] LABCLIA [id number] [place] [address] [place] Differential cell count method Nom (Bld) Auto Normal [facility] Comment on above: Order Comment: Speci men Type: BLOOD SPECIMENOrdering Facility: [facility] Address: [address] [place] [address] Performed By: #### 5 7021-8 ####[facility] LABCLIA [id number] [place] [address] [place] Eosinophils (Bld) [#/Vol] 10*3/uL Normal <0.46 [facility] Comment on above: Order Comment: Speci men Type: BLOOD SPECIMENOrdering Facility: [facility] Address: [address] [place], [place] [address] Performed By: #### 5 7021-8 ####[facility] LABCLIA [id number] [place] [address] [place] Eosinophils/100 WBC (Bld) 0.0 % Normal [facility] Comment on above: Order Comment: Speci men Type: BLOOD SPECIMENOrdering Facility: [facility] Address: [address] [place], [place] [address] Performed By: #### 5 7021-8 ####[facility] LABCLIA [id number] [place] [address] [place] Erythrocyte distribution width (RBC) [Ratio] 17.2 % High 11.5-15.0 [facility] Comment on above: Order Comment: Speci men Type: BLOOD SPECIMENOrdering Facility: [facility] Address: [address] [place], [place] [address] Performed By: #### 5 7021-8 ####[facility] LABCLIA [id number] [place] [address] [place] Hematocrit (Bld) [Volume fraction] 39.3 % Normal 39.0-51.0 [facility] Comment on above: Order Comment: Speci men Type: BLOOD SPECIMENOrdering Facility: [facility] Address: [address] [place], [place] [address] Performed By: #### 5 7021-8 ####[facility] LABCLIA [id number] [place] [address] [place] Hemoglobin (Bld) [Mass/Vol] 12.7 g/dL Low 13.0-17.0 [facility] Comment on above: Order Comment: Speci men Type: BLOOD SPECIMENOrdering Facility: [facility] Address: [address] [place], [place] [id number] Performed By: #### 5 7021-8 ####[facility] LABCLIA [id number] [address] [place] IMMATURE GRAN % 0.7 % Normal [facility] Comment on above: Order Comment: Speci men Type: BLOOD SPECIMENOrdering Facility: [facility] Address: [address] [place] [address] Performed By: #### 5 7021-8 ####[facility] LABCLIA [id number] [address] OF [facility] IMMATURE GRAN ABS 0.06 k/uL Normal <0.10 [facility] Comment on above: Order Comment: Speci men Type: BLOOD SPECIMENOrdering Facility: [facility] Address: [address] [place] [address] Performed By: #### 5 7021-8 ####[facility] LABIA [id number] [place] [address] [place] Lymphocytes (Bld) [#/Vol] 1.69 10*3/uL Normal 1.00-4.00 [facility] Comment on above: Order Comment: Speci men Type: BLOOD SPECIMENOrdering Facility: [facility] Address: [address] [place] [address] Performed By: #### 5 7021-8 ####[facility] LABIA [id number] [address] [place] Lymphocytes/100 WBC (Bld) 18.7 % Normal [facility] Comment on above: Order Comment: Speci men Type: BLOOD SPECIMENOrdering Facility: [facility] Address: [address] [place] [address] Performed By: #### 5 7021-8 ####[facility] LABCLIA [id number] [place] [address] [place] MCH (RBC) [Entitic mass] 30.2 pg Normal 26.0-34.0 [facility] Comment on above: Order Comment: Speci men Type: BLOOD SPECIMENOrdering Facility: [facility] Address: [address] [place], [place] [address] Performed By: #### 5 7021-8 ####[facility] LABCLIA [id number] [place] [address] [place] MCHC (RBC) [Mass/Vol] 32.3 g/dL Normal 30.5-36.0 [facility] Comment on above: Order Comment: Speci men Type: BLOOD SPECIMENOrdering Facility: [facility] Address: [address] [place], [place] [address] Performed By: #### 5 7021-8 ####[facility] LABIA [id number] [place] [address] [place] MCV (RBC) [Entitic vol] 93.3 fL Normal 80.0-100.0 [facility] Comment on above: Order Comment: Speci men Type: BLOOD SPECIMENOrdering Facility: [facility] Address: [address] [place], [place] [address] Performed By: #### 5 7021-8 ####[facility] LABIA [id number] [address] [place] Monocytes (Bld) [#/Vol] 0.62 10*3/uL Normal <0.87 [facility] Comment on above: Order Comment: Speci men Type: BLOOD SPECIMENOrdering Facility: [facility] Address: [address] [place] [address] Performed By: #### 5 7021-8 ####[facility] LABCLIA [id number] [address] [place] Monocytes/100 WBC (Bld) 6.8 % Normal [facility] Comment on above: Order Comment: Speci men Type: BLOOD SPECIMENOrdering Facility: [facility] Address: [address] [place], [place] [address] Performed By: #### 5 7021-8 ####[facility] LABCLIA [id number] [place] [address] [place] Neutrophils (Bld) [#/Vol] 6.68 10*3/uL Normal 1.45-7.50 [facility] Comment on above: Order Comment: Speci men Type: BLOOD SPECIMENOrdering Facility: [facility] Address: [address] [place], [place] [address] Performed By: #### 5 7021-8 ####[facility] LABCLIA [id number] [place] [address] [place] Neutrophils/100 WBC (Bld) 73.7 % Normal [facility] Comment on above: Order Comment: Speci men Type: BLOOD SPECIMENOrdering Facility: [facility] Address: [address] [place], [place] [address] Performed By: #### 5 7021-8 ####[facility] LABCLIA [id number] [place] [address] [place] Nucleated RBC (Bld) [#/Vol] 10*3/uL Normal <0.01 [facility] Comment on above: Order Comment: Speci men Type: BLOOD SPECIMENOrdering Facility: [facility] Address: [address] [place], [place] [address] Performed By: #### 5 7021-8 ####[facility] LABCLIA [id number] [place] [address] [place] Nucleated RBC/100 WBC (Bld) [Ratio] 0.0 /100 WBC Normal [facility] Comment on above: Order Comment: Speci men Type: BLOOD SPECIMENOrdering Facility: [facility] Address: [address] [place], [place] [address] Performed By: #### 5 7021-8 ####[facility] LABCLIA [id number] [place] [address] [place] Platelet mean volume (Bld) [Entitic vol] 10.3 fL Normal 9.0-12.7 [facility] Comment on above: Order Comment: Speci men Type: BLOOD SPECIMENOrdering Facility: [facility] Address: [address] [place], [place] [address] Performed By: #### 5 7021-8 ####[facility] LABCLIA [id number] [place] [address] [place] Platelets (Bld) [#/Vol] 178 10*3/uL Normal 150-400 [facility] Comment on above: Order Comment: Speci men Type: BLOOD SPECIMENOrdering Facility: [facility] Address: [address] [place], [place] [address] Performed By: #### 5 7021-8 ####[facility] LABIA [id number] [place] [address] [place] RBC (Bld) [#/Vol] 4.21 10*6/uL Normal 4.20-6.00 [facility] Comment on above: Order Comment: Speci men Type: BLOOD SPECIMENOrdering Facility: [facility] Address: [address] [place], [place] [address] Performed By: #### 5 7021-8 ####[facility] LABIA [id number] [place] [address] [place] WBC (Bld) [#/Vol] 9.06 10*3/uL Normal 3.70-11.00 [facility] Comment on above: Order Comment: Speci men Type: BLOOD SPECIMENOrdering Facility: [facility] Address: [address] [place], [place] [address] Performed By: #### 5 7021-8 ####[facility] LABCLIA [id number] [place] [address] [place] CBC panel Auto (Bld)on 09-23 Erythrocyte distribution width (RBC) [Ratio] 17.1 % High 11.5-15.0 [facility] Comment on above: Order Comment: Speci men Type: BLOOD SPECIMENOrdering Facility: [facility] Address: [address] [place], [place] [address] Performed By: #### 5 8410-2 ####[facility] LABCLIA [id number] [place] [address] [place] Hematocrit (Bld) [Volume fraction] 41.2 % Normal 39.0-51.0 [facility] Comment on above: Order Comment: Speci men Type: BLOOD SPECIMENOrdering Facility: [facility] Address: [address] [place], [place] [address] Performed By: #### 5 8410-2 ####[facility] LABCLIA [id number] [place] [address] [place] Hemoglobin (Bld) [Mass/Vol] 13.3 g/dL Normal 13.0-17.0 [facility] Comment on above: Order Comment: Speci men Type: BLOOD SPECIMENOrdering Facility: [facility] Address: [address] [place], [place] [address] Performed By: #### 5 8410-2 ####[facility] LABCLIA [id number] [place] [address] [place] MCH (RBC) [Entitic mass] 30.4 pg Normal 26.0-34.0 [facility] Comment on above: Order Comment: Speci men Type: BLOOD SPECIMENOrdering Facility: [facility] Address: [address] [place], [place] [address] Performed By: #### 5 8410-2 ####[facility] LABCLIA [id number] [place] [address] [place] MCHC (RBC) [Mass/Vol] 32.3 g/dL Normal 30.5-36.0 [facility] Comment on above: Order Comment: Speci men Type: BLOOD SPECIMENOrdering Facility: [facility] Address: [address] [place] [address] Performed By: #### 5 8410-2 ####[facility] LABCLIA [id number] [address] MCV (RBC) [Entitic vol] 94.1 fL Normal 80.0-100.0 [facility] Comment on above: Order Comment: Speci men Type: BLOOD SPECIMENOrdering Facility: [facility] Address: [address] [place], [place] [address] Performed By: #### 5 8410-2 ####[facility] LABIA [id number] [place] [address] [place] Nucleated RBC (Bld) [#/Vol] 10*3/uL Normal <0.01 [facility] Comment on above: Order Comment: Speci men Type: BLOOD SPECIMENOrdering Facility: [facility] Address: [address] [place], [place] [address] Performed By: #### 5 8410-2 ####[facility] LABIA [id number] [address] [place] Platelet mean volume (Bld) [Entitic vol] 10.0 fL Normal 9.0-12.7 [facility] Comment on above: Order Comment: Speci men Type: BLOOD SPECIMENOrdering Facility: [facility] Address: [address] [place] [address] Performed By: #### 5 8410-2 ####[facility] LABIA [id number] [place] [address] [place] Platelets (Bld) [#/Vol] 186 10*3/uL Normal 150-400 [facility] Comment on above: Order Comment: Speci men Type: BLOOD SPECIMENOrdering Facility: [facility] Address: [address] [place] [address] Performed By: #### 5 8410-2 ####[facility] LABCLIA [id number] [place] [address] [place] RBC (Bld) [#/Vol] 4.38 10*6/uL Normal 4.20-6.00 [facility] Comment on above: Order Comment: Speci men Type: BLOOD SPECIMENOrdering Facility: [facility] Address: [address] [place], [place] [address] Performed By: #### 5 8410-2 ####[facility] LABIA [id number] [place] [address] [place] WBC (Bld) [#/Vol] 8.98 10*3/uL Normal 3.70-11.00 [facility] Comment on above: Order Comment: Speci men Type: BLOOD SPECIMENOrdering Facility: [facility] Address: [address] [place], [place] [address] Performed By: #### 5 8410-2 ####[facility] LABIA [id number] [place] [address] [place] CNOVon 09-23-2021 CNOV Normal [facility] Comprehensive metabolic 2000 panelon 09-23-2021 Albumin [Mass/Vol] 3.6 g/dL Low 3.9-4.9 [facility] Comment on above: Order Comment: Speci men Type: BLOOD SPECIMENOrdering Facility: [facility] Address: [address] [place], [place] [address] Performed By: #### 2 4323-8, 87238-2, 60647-4 ####[facility] LABIA [id number] [place] [address] [place] ALP [Catalytic activity/Vol] 93 U/L Normal 38-113 [facility] Comment on above: Order Comment: Speci men Type: BLOOD SPECIMENOrdering Facility: [facility] Address: [address] [place], [place] [address] Performed By: #### 2 4323-8, 54105-7, ####[facility] LABCLIA [id number] [place] [address] [place] ALT [Catalytic activity/Vol] 112 U/L High 10-54 [facility] Comment on above: Order Comment: Speci men Type: BLOOD SPECIMENOrdering Facility: [facility] Address: [address] [place] [address] Performed By: #### 2 4323-8, 02711-2, ####[facility] LABCLIA [id number] [place] [address] [place] Anion gap [Moles/Vol] 10 mmol/L Normal 9-18 [facility] Comment on above: Order Comment: Speci men Type: BLOOD SPECIMENOrdering Facility: [facility] Address: [address] [place] [address] Performed By: #### 2 4323-8, 55184-7, ####[facility] LABCLIA [id number] [place] [address] [place] AST [Catalytic activity/Vol] 52 U/L High 14-40 [facility] Comment on above: Order Comment: Speci men Type: BLOOD SPECIMENOrdering Facility: [facility] Address: [address] [place] [address] Performed By: #### 2 4323-8, 31975-7, ####[facility] LABCLIA [id number] [place] [id number] [place] Bilirubin [Mass/Vol] 0.4 mg/dL Normal 0.2-1.3 [facility] Comment on above: Order Comment: Speci men Type: BLOOD SPECIMENOrdering Facility: [facility] Address: [address] [place] [address] Performed By: #### 2 4323-8, 23040-6, ####[facility] LABCLIA [id number] [place] [address] [place] Calcium [Mass/Vol] 8.8 mg/dL Normal 8.5-10.2 [facility] Comment on above: Order Comment: Speci men Type: BLOOD SPECIMENOrdering Facility: [facility] Address: [address] [place], [place] [address] Performed By: #### 2 4323-8, 00074-0, ####[facility] LABCLIA [id number] [place] [address] [place] Chloride [Moles/Vol] 101 mmol/L Normal 97-105 [facility] Comment on above: Order Comment: Speci men Type: BLOOD SPECIMENOrdering Facility: [facility] Address: [address] [place] [address] Performed By: #### 2 4323-8, 96795-6, ####[facility] LABCLIA [id number] [place] [address] [place] CO2 [Moles/Vol] 31 mmol/L High 22-30 [facility] Comment on above: Order Comment: Speci men Type: BLOOD SPECIMENOrdering Facility: [facility] Address: [address] [place], [place] [address] Performed By: #### 2 4323-8, 82829-7, ####[facility] LABCLIA [id number] [place] [id number] [place] Creatinine [Mass/Vol] 1.24 mg/dL High 0.73-1.22 [facility] Comment on above: Order Comment: Speci men Type: BLOOD SPECIMENOrdering Facility: [facility] Address: [address] [place], [place] [address] Performed By: #### 2 4323-8, 66692-1, 30530-2 ####[facility] LABCLIA [id number] [place] [id number] [place] ESTIMATED GLOMERULAR FILTRATION RATE 68 mL/min/1.73m??? Normal >=60 [facility] Comment on above: Order Comment: Aaliyah gibson Type: BLOOD SPECIMENOrdering Facility: [facility] Address: [address] [place] [address] Result Comment: Laurita mated Glomerular Filtration Rate [...] actual GFR. Performed By: #### 2 4323-8, 07723-4, 75563-2 ####[facility] LABIA [id number] [place] [id number] [place] Glucose [Mass/Vol] 176 mg/dL High 74-99 [facility] Comment on above: Order Comment: Aaliyah gibson Type: BLOOD SPECIMENOrdering Facility: [facility] Address: [address] [place] [address] Result Comment: The [place] Diabetes Association (ADA) provides guidance for cutoff [...] Standards of Medical Care in Diabetes 2016, [place] [employer]. Diabetes Care. 2016.39(Suppl 1). Performed By: #### 2 4323-8, 44064-6, 34685-8 ####[facility] LABIA [id number] [place] [id number] [place] Potassium [Moles/Vol] 3.2 mmol/L Low 3.7-5.1 [facility] Comment on above: Order Comment: Speci men Type: BLOOD SPECIMENOrdering Facility: [facility] Address: [address] [place] [address] Performed By: #### 2 4323-8, 21360-3, 90097-4 ####[facility] LABCLIA [id number] [place] [address] [place] Protein [Mass/Vol] 6.0 g/dL Low 6.3-8.0 [facility] Comment on above: Order Comment: Speci men Type: BLOOD SPECIMENOrdering Facility: [facility] Address: [address] [place] [address] Performed By: #### 2 4323-8, 46118-1, ####[facility] LABCLIA [id number] [place] [address] [place] Sodium [Moles/Vol] 142 mmol/L Normal 136-144 [facility] Comment on above: Order Comment: Speci men Type: BLOOD SPECIMENOrdering Facility: [facility] Address: [address] [place] [address] Performed By: #### 2 4323-8, 87957-2, ####[facility] LABCLIA [id number] [place] [address] [place] Urea nitrogen [Mass/Vol] 24 mg/dL Normal 9-24 [facility] Comment on above: Order Comment: Speci men Type: BLOOD SPECIMENOrdering Facility: [facility] Address: [address] [place], [place] [address] Performed By: #### 2 4323-8, 20423-5, 41845-1 ####[facility] LABCLIA [id number] [place] [id number] [place] ECG COMPLETEon 09-23-2021 ECG COMPLETE Normal [facility] Lipid 1996 panelon 2 Cholesterol [Mass/Vol] 152 mg/dL Normal <200 [facility] Comment on above: Order Comment: Speci men Type: BLOOD SPECIMENOrdering Facility: [facility] Address: [address] [place] [address] Result Comment: <200 mg/dL, Desirable 200-239 mg/dL, Borderline high>239 mg/dL, High Performed By: #### 3 016-3, 41769-9, 04955-0, ####[facility] LABCLIA [id number] [address] OF [facility] Cholesterol in HDL [Mass/Vol] 55 mg/dL Normal >39 [facility] Comment on above: Order Comment: Speci men Type: BLOOD SPECIMENOrdering Facility: [facility] Address: [address] [place] [address] Result Comment: 40-5 9 mg/dL, Acceptable>59 mg/dL, High: Negative risk factor for coronary heart disease<40 mg/dL, Low: Positive risk factor for coronary heart disease Performed By: #### 3 016-3, 89580-9, 81284-6, ####[facility] LABCLIA [id number] [address] [place] Cholesterol in LDL [Mass/Vol] 87 mg/dL Normal <100 [facility] Comment on above: Order Comment: Speci men Type: BLOOD SPECIMENOrdering Facility: [facility] Address: [address] [place] [address] Result Comment: <100 mg/dL, Optimal 100-129 mg/dL, Near optimal/above optimal 130-159 mg/dL, Borderline high 160-189 mg/dL, High>189 mg/dL, Very highSecondary prevention optimal LDL Cholesterol levels are recommended to be < 70 mg/dL Performed By: #### 3 016-3, 20013-2, 06078-5, 93877-9 ####[facility] LABCLIA [id number] [address] Cholesterol in LDL/Cholesterol in HDL [Mass ratio] 1.58 {ratio} Normal <2.54 [facility] Comment on above: Order Comment: Speci men Type: BLOOD SPECIMENOrdering Facility: [facility] Address: [address] [place] [address] Result Comment: Refe rence:1. National Cholesterol Education Program ATP III Guideline At-A-Glance Quick Desk Reference: National Heart, Lung, and Blood [place]. National Institutes of Health. 2001: NIH Publication No. 01-3305.2. An International Atherosclerosis Society position paper: global recommendations for the management of dyslipidemia: executive summary, Atherosclerosis. 2014: 232(2):410-413. Performed By: #### 3 016-3, 08646-2, 37594-8, 67053-4 ####[facility] LABCLIA [id number] [address] [place] Cholesterol in VLDL [Mass/Vol] 10 mg/dL Normal <30 [facility] Comment on above: Order Comment: Ronyi men Type: BLOOD SPECIMENOrdering Facility: [facility] Address: [address] [place] [address] Performed By: #### 3 016-3, 67454-1, 30431-7, 54021-3 ####[facility] LABCLIA [id number] [place] [address] [place] Cholesterol non HDL [Mass/Vol] 97 mg/dL Normal <130 [facility] Comment on above: Order Comment: Speci men Type: BLOOD SPECIMENOrdering Facility: [facility] Address: [address] [place] [address] Result Comment: <130 mg/dL, Optimal 130-159 mg/dL, Near optimal/above optimal 160-189 mg/dL, Borderline high 190-219 mg/dL, High>219 mg/dL, Very highSecondary prevention optimal non HDL Cholesterol levels are recommended to be <100 mg/dL Performed By: #### 3 016-3, 43246-1, 71866-1, ####[facility] LABCLIA [id number] [place] [address] [place] Cholesterol.total/Urvashi sterol in HDL [Mass ratio] 2.76 {ratio} Normal <5.10 [facility] Comment on above: Order Comment: Speci men Type: BLOOD SPECIMENOrdering Facility: [facility] Address: [address] [place] [address] Performed By: #### 3 016-3, 88176-2, 03246-4, ####[facility] LABCLIA [id number] [address] [place] FASTING TIME 9 hrs Normal [facility] Comment on above: Order Comment: Speci men Type: BLOOD SPECIMENOrdering Facility: [facility] Address: [address] [place] [address] Performed By: #### 3 016-3, 93447-7, 48945-8, ####[facility] LABCLIA [id number] [place] [address] [place] Triglyceride [Mass/Vol] 51 mg/dL Normal <150 [facility] Comment on above: Order Comment: Speci men Type: BLOOD SPECIMENOrdering Facility: [facility] Address: [address] [place] [address] Result Comment: <150 mg/dL, Normal 150-199 mg/dL, Borderline high 200-499 mg/dL, High>499 mg/dL, Very high Performed By: #### 3 016-3, 28953-0, 16402-6, ####[facility] LABCLIA [id number] [place] [address] [place] Magnesium SerPl-mCncon 09-23 Magnesium [Mass/Vol] 2.0 mg/dL Normal 1.7-2.3 [facility] Comment on above: Order Comment: Speci men Type: BLOOD SPECIMENOrdering Facility: [facility] Address: [address] [place] [address] Performed By: #### 3 016-3, 24118-7, 85808-9, 12102-2 ####[facility] LABCLIA [id number] [place] [address] [place] Magnesium [Mass/Vol] 2.1 mg/dL Normal 1.7-2.3 [facility] Comment on above: Order Comment: Speci men Type: BLOOD SPECIMENOrdering Facility: [facility] Address: [address] [place] [address] Performed By: #### 2 4323-8, 17076-9, ####[facility] LABCLIA [id number] [place] [address] [place] NT-proBNP [facility] 09-23 Natriuretic peptide.B prohormone N-Terminal [Mass/Vol] 1946 pg/mL High <125 [facility] Comment on above: Order Comment: Speci men Type: BLOOD SPECIMENOrdering Facility: [facility] Address: [address] [place] [address] Performed By: #### 2 4323-8, 75117-9, ####[facility] LABCLIA [id number] [place] [address] [place] POTASSIUM BLDon 09-23-2021 Potassium [Moles/Vol] 3.4 mmol/L Low 3.7-5.1 [facility] Comment on above: Order Comment: Speci men Type: BLOOD SPECIMENOrdering Facility: [facility] Address: [address] [place], [place] [address] Performed By: #### K 1 ####[facility] LABCLIA [id number] [place] [address] [place] Potassium [Moles/Vol] 3.5 mmol/L Low 3.7-5.1 [facility] Comment on above: Order Comment: Speci men Type: BLOOD SPECIMENOrdering Facility: [facility] Address: [address] [place] [address] Performed By: #### K 1 ####[facility] LABCLIA [id number] [place] [address] [place] PT panel Coag (PPP)on 2021 INR Coag (PPP) [Relative time] 1.2 {INR} Normal 0.9-1.3 [facility] Comment on above: Order Comment: Speci men Type: BLOOD SPECIMENOrdering Facility: [facility] Address: [address] [place] [address] Result Comment: Constanza min K Antagonist (VKA) Therapeutic Range: INR 2 to 3 (Target INR of 2.5)Note: For patients treated with VKA drugs, such as warfarin, the [place] [employer] 2012 Guideline recommends [...] al. Chest 2012, 141:7S-47SNishimkhalida RA, et al. [facility] 2017, 70: 252-289 Performed By: #### P [facility], 57500-0 ####[facility] LABIA [id number] [place] [address] [place] PT Coag (PPP) [Time] 12.3 s Normal 9.7-13.0 [facility] Comment on above: Order Comment: Speci men Type: BLOOD SPECIMENOrdering Facility: [facility] Address: [address] [place] [address] Performed By: #### P TTA, 13593-6 ####[facility] LABCLIA [id number] [place] [address] [place] INR Coag (PPP) [Relative time] 1.1 {INR} Normal 0.9-1.3 [facility] Comment on above: Order Comment: Aaliyah gibson Type: BLOOD SPECIMENOrdering Facility: [facility] Address: [address] [place] [address] Result Comment: Constanza min K Antagonist (VKA) Therapeutic Range: INR 2 to 3 (Target INR of 2.5)Note: For patients treated with VKA drugs, such as warfarin, the [place] [employer] 2012 Guideline recommends [...] al. Chest 2012, 141:7S-47SCaitie RA, et al. [facility] 2017, 70: 252-289 Performed By: #### 3 4528-0, 57207-5 ####[facility] LABIA [id number] [place] [id number] [place] PT Coag (PPP) [Time] 11.9 s Normal 9.7-13.0 [facility] Comment on above: Order Comment: Aaliyah gibson Type: BLOOD SPECIMENOrdering Facility: [facility] Address: [address] [address] Performed By: #### 3 4528-0, 63937-3 ####[facility]IA [id number] [address] [place] PTT, ANTICOAGULANT THERAPYon 09-23-2021 aPTT Coag (PPP) [Time] s High 23.0-32.4 [facility] Comment on above: Order Comment: Speci men Type: BLOOD SPECIMENOrdering Facility: [facility] Address: [address] [place] [address] Result Comment: Samp le checked for clot.Result rechecked. Performed By: #### P TTAC ####[facility] [id number] [address] STATES [place] aPTT Coag (PPP) [Time] s High 23.0-32.4 [facility] Comment on above: Order Comment: Speci men Type: BLOOD SPECIMENOrdering Facility: [facility] Address: [address] [place] [address] Result Comment: Samp le checked for clot.Result rechecked. Performed By: #### P TTAC ####[facility] [id number] [address] STATES OF [facility] aPTT Coag (PPP) [Time] 73.9 s High 23.0-32.4 [facility] Comment on above: Order Comment: Speci men Type: BLOOD SPECIMENOrdering Facility: [facility] Address: [address] [place] [address] Performed By: #### P TTAC, 97770-8 ####[facility] [id number] [place] [address] [place] SARS-CoV-2 RNA Resp Ql SANDOVAL+p robeon 09-23-2021 SARS-CoV-2 (COVID-19) RNA SANDOVAL+probe Ql (Resp) COVID 19 RESULT: SARS-CoV-2 (Agent of COVID-19) Not Detected by RT-PCR or equivalent method. This test has been authorized by FDA under an Emergency Use Authorization (EUA). Normal [facility] Comment on above: Performed By: #### 9 4500-6 ####[facility] LABCLIA [id number] [address] OF [place] TSH SerPl-aCncon 09-23-2021 TSH Qn 1.870 m[IU]/L Normal 0.270-4.20 0 [facility] Comment on above: Order Comment: Speci men Type: BLOOD SPECIMENOrdering Facility: [facility] Address: [address] [place] [address] Performed By: #### 3 016-3, 09845-8, 85074-7, 90027-4 ####[facility] [id number] [address] [place] aPTT PPPon 09-23-2021 aPTT Coag (PPP) [Time] 25.4 s Normal 23.0-32.4 [facility] Comment on above: Order Comment: Speci men Type: BLOOD SPECIMENOrdering Facility: [facility] Address: [address] [place] [address] Performed By: #### 3 4528-0, 09642-8 ####[facility] [id number] [address] [place] CNOVon 09-22-2021 CNOV Normal [facility] HISTORY PHYSICALon HISTORY PHYSICAL Normal [facility] NURSING PROGon 09-22-2021 NURSING PROG Normal [facility] XR CHEST 1V FRONTAL PORTon 0 09-22-2021 XR CHEST 1V FRONTAL PORT Normal [facility] CNPNon 09-19-2021 CNPN Normal [facility] CNPNon 09-16-2021 CNPN Normal [facility] CBC W Auto Differential pane l (Bld)on 09-11-2021 Basophils (Bld) [#/Vol] 10*3/uL Normal <0.11 C [facility] Comment on above: Order Comment: Speci men Type: BLOOD SPECIMENOrdering Facility: [facility] Address: [address] [place], [place] [address] Performed By: #### 5 7021-8 ####[facility] [id number] [place] [address] STATES [facility] Basophils/100 WBC (Bld) 0.3 % Normal [facility] Comment on above: Order Comment: Speci men Type: BLOOD SPECIMENOrdering Facility: [facility] Address: [address] [place], [place] [address] Performed By: #### 5 7021-8 ####[facility] [id number] [place] [address] [place] Differential cell count method Nom (Bld) Auto Normal [facility] Comment on above: Order Comment: Speci men Type: BLOOD SPECIMENOrdering Facility: [facility] Address: [address] [place], [place] [address] Performed By: #### 5 7021-8 ####[facility] [id number] [place] [address] [place] Eosinophils (Bld) [#/Vol] 0.03 10*3/uL Normal <0.46 [facility] Comment on above: Order Comment: Speci men Type: BLOOD SPECIMENOrdering Facility: [facility] Address: [address] [place], [place] [address] Performed By: #### 5 7021-8 ####[facility] [id number] [place] [address] STATES OF [facility] Eosinophils/100 WBC (Bld) 0.5 % Normal [facility] Comment on above: Order Comment: Speci men Type: BLOOD SPECIMENOrdering Facility: [facility] Address: [address] [place], [place] [address] Performed By: #### 5 7021-8 ####[facility] [id number] [place] [address] [place] Erythrocyte distribution width (RBC) [Ratio] 15.5 % High 11.5-15.0 [facility] Comment on above: Order Comment: Speci men Type: BLOOD SPECIMENOrdering Facility: [facility] Address: [address] [place] [address] Performed By: #### 5 7021-8 ####[facility] [id number] [place] [address] STATES OF [facility] Hematocrit (Bld) [Volume fraction] 42.0 % Normal 39.0-51.0 [facility] Comment on above: Order Comment: Speci men Type: BLOOD SPECIMENOrdering Facility: [facility] Address: [address] [place] [address] Performed By: #### 5 7021-8 ####[facility] [id number] [place] [address] STATES OF [facility] Hemoglobin (Bld) [Mass/Vol] 13.5 g/dL Normal 13.0-17.0 [facility] Comment on above: Order Comment: Speci men Type: BLOOD SPECIMENOrdering Facility: [facility] Address: [address] [place], [place] [address] Performed By: #### 5 7021-8 ####[facility] [id number] [place] [address] OF [facility] IMMATURE GRAN % 0.3 % Normal [facility] Comment on above: Order Comment: Speci men Type: BLOOD SPECIMENOrdering Facility: [facility] Address: [address] [place], [place] [address] Performed By: #### 5 7021-8 ####[facility] [id number] [place] [address] OF [facility] IMMATURE GRAN ABS <0.03 Normal <0.10 [facility] Comment on above: Order Comment: Speci men Type: BLOOD SPECIMENOrdering Facility: [facility] Address: [address] [place], [place] [address] Performed By: #### 5 7021-8 ####[facility] [id number] [address] Lymphocytes (Bld) [#/Vol] 1.12 10*3/uL Normal 1.00-4.00 [facility] Comment on above: Order Comment: Speci men Type: BLOOD SPECIMENOrdering Facility: [facility] Address: [address] [place], [place] [address] Performed By: #### 5 7021-8 ####[facility] [id number] [address] OF [facility] Lymphocytes/100 WBC (Bld) 17.2 % Normal [facility] Comment on above: Order Comment: Speci men Type: BLOOD SPECIMENOrdering Facility: [facility] Address: [address] [place], [place] [address] Performed By: #### 5 7021-8 ####[facility] [id number] [address] [place] OF [place] MCH (RBC) [Entitic mass] 29.6 pg Normal 26.0-34.0 [facility] Comment on above: Order Comment: Speci men Type: BLOOD SPECIMENOrdering Facility: [facility] Address: [address] [place], [place] [address] Performed By: #### 5 7021-8 ####[facility] [id number] [address] [place] MCHC (RBC) [Mass/Vol] 32.1 g/dL Normal 30.5-36.0 [facility] Comment on above: Order Comment: Speci men Type: BLOOD SPECIMENOrdering Facility: [facility] Address: [address] [place], [place] [address] Performed By: #### 5 7021-8 ####[facility] [id number] [place] [address] [place] MCV (RBC) [Entitic vol] 92.1 fL Normal 80.0-100.0 C [facility] Comment on above: Order Comment: Speci men Type: BLOOD SPECIMENOrdering Facility: [facility] Address: [address] [place] [address] Performed By: #### 5 7021-8 ####[facility] [id number] [place] [address] [place] Monocytes (Bld) [#/Vol] 0.53 10*3/uL Normal <0.87 [facility] Comment on above: Order Comment: Speci men Type: BLOOD SPECIMENOrdering Facility: [facility] Address: [address] [place] [address] Performed By: #### 5 7021-8 ####[facility] [id number] [place] [address] [place] Monocytes/100 WBC (Bld) 8.1 % Normal C [facility] Comment on above: Order Comment: Speci men Type: BLOOD SPECIMENOrdering Facility: [facility] Address: [address] [place] [address] Performed By: #### 5 7021-8 ####[facility] [id number] [place] [address] [place] Neutrophils (Bld) [#/Vol] 4.81 10*3/uL Normal 1.45-7.50 [facility] Comment on above: Order Comment: Speci men Type: BLOOD SPECIMENOrdering Facility: [facility] Address: [address] [place] [address] Performed By: #### 5 7021-8 ####[facility] [id number] [place] [address] [place] Neutrophils/100 WBC (Bld) 73.6 % Normal [facility] Comment on above: Order Comment: Speci men Type: BLOOD SPECIMENOrdering Facility: [facility] Address: [address] [place], [place] [address] Performed By: #### 5 7021-8 ####[facility] [id number] [place] [address] POP Nucleated RBC (Bld) [#/Vol] 10*3/uL Normal <0.01 [facility] Comment on above: Order Comment: Speci men Type: BLOOD SPECIMENOrdering Facility: [facility] Address: [address] [place], [place] [address] Performed By: #### 5 7021-8 ####[facility] [id number] [place] [address] [place] Nucleated RBC/100 WBC (Bld) [Ratio] 0.0 /100 WBC Normal [facility] Comment on above: Order Comment: Speci men Type: BLOOD SPECIMENOrdering Facility: [facility] Address: [address] [place], [place] [address] Performed By: #### 5 7021-8 ####[facility] [id number] [place] [address] [place] Platelet mean volume (Bld) [Entitic vol] 9.7 fL Normal 9.0-12.7 [facility] Comment on above: Order Comment: Speci men Type: BLOOD SPECIMENOrdering Facility: [facility] Address: [address] [place] [address] Performed By: #### 5 7021-8 ####[facility] [id number] [place] [address] [place] Platelets (Bld) [#/Vol] 267 10*3/uL Normal 150-400 [facility] Comment on above: Order Comment: Speci men Type: BLOOD SPECIMENOrdering Facility: [facility] Address: [address] [place], [place] [address] Performed By: #### 5 7021-8 ####[facility] [id number] [place] [address] [place] RBC (Bld) [#/Vol] 4.56 10*6/uL Normal 4.20-6.00 [facility] Comment on above: Order Comment: Speci men Type: BLOOD SPECIMENOrdering Facility: [facility] Address: [address] [place], [place] [address] Performed By: #### 5 7021-8 ####[facility] [id number] [place] [address] WBC (Bld) [#/Vol] 6.53 10*3/uL Normal 3.70-11.00 [facility] Comment on above: Order Comment: Speci men Type: BLOOD SPECIMENOrdering Facility: [facility] Address: [address] [place], [place] [address] Performed By: #### 5 7021-8 ####[facility] [id number] [place] [address] [place] CNNURSEon 09-11-2021 CNNURSE Normal [facility] CNOVSPon 09-11-2021 CNOVSP Normal [facility] Comprehensive metabolic 2000 panelon 09-11-2021 Albumin [Mass/Vol] 4.1 g/dL Normal 3.9-4.9 [facility] Comment on above: Order Comment: Speci men Type: BLOOD SPECIMENOrdering Facility: [facility] Address: [address] [place], [place] [address] Performed By: #### 3 084-1, 44269-1, 62221-0 ####[facility] [id number] [place] [address] [place] ALP [Catalytic activity/Vol] 80 U/L Normal 38-113 [facility] Comment on above: Order Comment: Speci men Type: BLOOD SPECIMENOrdering Facility: [facility] Address: [address] [place] [address] Performed By: #### 3 084-1, 22980-1, ####[facility] [id number] [place] [address] [place] ALT [Catalytic activity/Vol] 82 U/L High 10-54 [facility] Comment on above: Order Comment: Speci men Type: BLOOD SPECIMENOrdering Facility: [facility] Address: [address] [place] [address] Performed By: #### 3 084-1, 49088-6, ####[facility] [id number] [place] [address] [place] Anion gap [Moles/Vol] 12 mmol/L Normal 9-18 [facility] Comment on above: Order Comment: Speci men Type: BLOOD SPECIMENOrdering Facility: [facility] Address: [address] [place] [address] Performed By: #### 3 084-1, 12494-4, ####[facility] [id number] [place] [address] [place] AST [Catalytic activity/Vol] 58 U/L High 14-40 [facility] Comment on above: Order Comment: Speci men Type: BLOOD SPECIMENOrdering Facility: [facility] Address: [address] [place] [address] Performed By: #### 3 084-1, 92661-5, ####[facility] [id number] [place] [address] [place] Bilirubin [Mass/Vol] 0.5 mg/dL Normal 0.2-1.3 [facility] Comment on above: Order Comment: Speci men Type: BLOOD SPECIMENOrdering Facility: [facility] Address: [address] [place], [place] [id number] Performed By: #### 3 084-1, 05975-4, 70210-3 ####[facility] [id number] [place] [address] [place] Calcium [Mass/Vol] 9.4 mg/dL Normal 8.5-10.2 [facility] Comment on above: Order Comment: Speci men Type: BLOOD SPECIMENOrdering Facility: [facility] Address: [address] [place] [address] Performed By: #### 3 084-1, 24157-1, ####[facility] [id number] [place] [address] [place] Chloride [Moles/Vol] 103 mmol/L Normal 97-105 [facility] Comment on above: Order Comment: Speci men Type: BLOOD SPECIMENOrdering Facility: [facility] Address: [address] [place] [address] Performed By: #### 3 084-1, 11601-2, ####[facility] [id number] [place] [address] [place] CO2 [Moles/Vol] 29 mmol/L Normal 22-30 [facility] Comment on above: Order Comment: Speci men Type: BLOOD SPECIMENOrdering Facility: [facility] Address: [address] [place], [place] [address] Performed By: #### 3 084-1, 64431-2, 29676-4 ####[facility] [id number] [place] [address] [place] Creatinine [Mass/Vol] 1.18 mg/dL Normal 0.73-1.22 [facility] Comment on above: Order Comment: Speci men Type: BLOOD SPECIMENOrdering Facility: [facility] Address: [address] [place], [place] [address] Performed By: #### 3 084-1, 86471-7, ####[facility] [id number] [address] STATES OF [place] ESTIMATED GLOMERULAR FILTRATION RATE 72 mL/min/1.73m??? Normal >=60 [facility] Comment on above: Order Comment: Aaliyah gibson Type: BLOOD SPECIMENOrdering Facility: [facility] Address: [address] [place] [address] Result Comment: Laurita mated Glomerular Filtration Rate [...] actual GFR. Performed By: #### 3 084-1, 20298-1, ####[facility] [id number] [address] [place] Glucose [Mass/Vol] 130 mg/dL High 74-99 [facility] Comment on above: Order Comment: aAliyah gibson Type: BLOOD SPECIMENOrdering Facility: [facility] Address: [address] [place] [address] Result Comment: The [place] [employer] (ADA) provides guidance for cutoff [...] Standards of Medical Care in Diabetes 2016, [place] [employer]. Diabetes Care. 2016.39(Suppl 1). Performed By: #### 3 084-1, 94403-1, ####[facility] [id number] [place] [address] [place] Potassium [Moles/Vol] 3.3 mmol/L Low 3.7-5.1 [facility] Comment on above: Order Comment: Speci men Type: BLOOD SPECIMENOrdering Facility: [facility] Address: [address] [place], [place] [address] Performed By: #### 3 084-1, , ####[facility] [id number] [place] [address] [place] Protein [Mass/Vol] 6.9 g/dL Normal 6.3-8.0 [facility] Comment on above: Order Comment: Speci men Type: BLOOD SPECIMENOrdering Facility: [facility] Address: [address] [place], [place] [address] Performed By: #### 3 084-1, , ####[facility] [id number] [place] [address] [place] Sodium [Moles/Vol] 144 mmol/L Normal 136-144 [facility] Comment on above: Order Comment: Speci men Type: BLOOD SPECIMENOrdering Facility: [facility] Address: [address] [place] [address] Performed By: #### 3 084-1, , ####[facility] [id number] [place] [id number] [place] Urea nitrogen [Mass/Vol] 19 mg/dL Normal 9-24 [facility] Comment on above: Order Comment: Speci men Type: BLOOD SPECIMENOrdering Facility: [facility] Address: [address] [place] [address] Performed By: #### 3 084-1, , ####[facility] [id number] [place] [address] [place] LDH SerPl-cCncon 09-11-2021 LDH [Catalytic activity/Vol] 297 U/L High 135-225 [facility] Comment on above: Order Comment: Aaliyah gibson Type: BLOOD SPECIMENOrdering Facility: [facility] Address: [address] [place] [address] Performed By: #### 2 532-0 ####[facility] [id number] [place] [address] STATES [facility] Magnesium SerPl-mCncon 09-11 Magnesium [Mass/Vol] 2.1 mg/dL Normal 1.7-2.3 [facility] Comment on above: Order Comment: Aaliyah gibson Type: BLOOD SPECIMENOrdering Facility: [facility] Address: [address] [place] [address] Performed By: #### 3 084-1, 49196-6, 28062-3 ####[facility] [id number] [place] [address] PT panel Coag (PPP)on 2021 INR Coag (PPP) [Relative time] 1.1 {INR} Normal 0.9-1.3 [facility] Comment on above: Order Comment: Aaliyah gibson Type: BLOOD SPECIMENOrdering Facility: [facility] Address: [address] [place] [address] Result Comment: Constanza min K Antagonist (VKA) Therapeutic Range: INR 2 to 3 (Target INR of 2.5)Note: For patients treated with VKA drugs, such as warfarin, the [place] [employer] 2012 Guideline recommends [...] al. Chest 2012, 141:7S-47SNishimura RA, et al. [facility] 2017, 70: 252-289 Performed By: #### 3 4528-0, 91276-0 ####[facility] [id number] [place] [address] [place] PT Coag (PPP) [Time] 11.3 s Normal 9.7-13.0 [facility] Comment on above: Order Comment: Speci men Type: BLOOD SPECIMENOrdering Facility: [facility] Address: [address] [place] [address] Performed By: #### 3 4528-0, 52916-4 ####[facility] [id number] [place] [address] [place] Phosphate SerPl-mCncon 09-11 Phosphate [Mass/Vol] 3.5 mg/dL Normal 2.7-4.8 [facility] Comment on above: Order Comment: Speci men Type: BLOOD SPECIMENOrdering Facility: [facility] Address: [address] [place] [address] Performed By: #### 2 777-1 ####[facility] [id number] [place] [address] [place] Urate SerPl-mCncon 2 Urate [Mass/Vol] 9.2 mg/dL High 4.0-8.1 [facility] Comment on above: Order Comment: Speci men Type: BLOOD SPECIMENOrdering Facility: [facility] Address: [address] [place] [address] Performed By: #### 3 084-1, 32227-8, 11712-2 ####[facility] [id number] [place] [address] [place] aPTT PPPon 09-11-2021 aPTT Coag (PPP) [Time] 28.1 s Normal 23.0-32.4 [facility] Comment on above: Order Comment: Speci men Type: BLOOD SPECIMENOrdering Facility: [facility] Address: [address] [place] [address] Performed By: #### 3 4528-0, 81374-2 ####[facility] [id number] [place] [address] [place] CNPNon 09-05-2021 CNPN Normal [facility] CBC panel Auto (Bld)on 09-04 Erythrocyte distribution width (RBC) [Ratio] 15.2 % High 11.5-15.0 [facility] Comment on above: Order Comment: Speci men Type: BLOOD SPECIMENOrdering Facility: [facility] Address: [address] [place] [address] Performed By: #### 5 8410-2 ####[facility] [id number] [address] [place] Hematocrit (Bld) [Volume fraction] 40.7 % Normal 39.0-51.0 [facility] Comment on above: Order Comment: Speci men Type: BLOOD SPECIMENOrdering Facility: [facility] Address: [address] [place], [place] [id number] Performed By: #### 5 8410-2 ####[facility] [id number] [place] [address] [place] Hemoglobin (Bld) [Mass/Vol] 13.1 g/dL Normal 13.0-17.0 [facility] Comment on above: Order Comment: Speci men Type: BLOOD SPECIMENOrdering Facility: [facility] Address: [address] [place], [place] [id number] Performed By: #### 5 8410-2 ####[facility] [id number] [address] [place] MCH (RBC) [Entitic mass] 29.5 pg Normal 26.0-34.0 [facility] Comment on above: Order Comment: Speci men Type: BLOOD SPECIMENOrdering Facility: [facility] Address: [address] [place] [address] Performed By: #### 5 8410-2 ####[facility] [id number] [address] [place] MCHC (RBC) [Mass/Vol] 32.2 g/dL Normal 30.5-36.0 [facility] Comment on above: Order Comment: Speci men Type: BLOOD SPECIMENOrdering Facility: [facility] Address: [address] [place] [address] Performed By: #### 5 8410-2 ####[facility] [id number] [address] [place] MCV (RBC) [Entitic vol] 91.7 fL Normal 80.0-100.0 [facility] Comment on above: Order Comment: Speci men Type: BLOOD SPECIMENOrdering Facility: [facility] Address: [address] [place] [address] Performed By: #### 5 8410-2 ####[facility] [id number] [address] [place] Nucleated RBC (Bld) [#/Vol] 10*3/uL Normal <0.01 [facility] Comment on above: Order Comment: Speci men Type: BLOOD SPECIMENOrdering Facility: [facility] Address: [address] [place], [place] [address] Performed By: #### 5 8410-2 ####[facility] [id number] [address] [id number] [address] [place] Platelet mean volume (Bld) [Entitic vol] 10.1 fL Normal 9.0-12.7 [facility] Comment on above: Order Comment: Speci men Type: BLOOD SPECIMENOrdering Facility: [facility] Address: [address] [place] [address] Performed By: #### 5 8410-2 ####[facility] LABCLIA [id number] [place] [address] [place] Platelets (Bld) [#/Vol] 214 10*3/uL Normal 150-400 [facility] Comment on above: Order Comment: Speci men Type: BLOOD SPECIMENOrdering Facility: [facility] Address: [address] [place], [place] [address] Performed By: #### 5 8410-2 ####[facility] LABCLIA [id number] [place] [address] [place] RBC (Bld) [#/Vol] 4.44 10*6/uL Normal 4.20-6.00 [facility] Comment on above: Order Comment: Speci men Type: BLOOD SPECIMENOrdering Facility: [facility] Address: [address] [place] [address] Performed By: #### 5 8410-2 ####[facility] LABCLIA [id number] [place] [address] [place] WBC (Bld) [#/Vol] 6.02 10*3/uL Normal 3.70-11.00 [facility] Comment on above: Order Comment: Speci men Type: BLOOD SPECIMENOrdering Facility: [facility] Address: [address] [place] [address] Performed By: #### 5 8410-2 ####[facility] LABCLIA [id number] [place] [address] [place] CNDSon 09-04-2021 CNDS Normal [facility] CONSULTon 09-04-2021 CONSULT Normal [facility] Comprehensive metabolic 2000 panelon 09-04-2021 Albumin [Mass/Vol] 3.5 g/dL Low 3.9-4.9 [facility] Comment on above: Order Comment: Speci men Type: BLOOD SPECIMENOrdering Facility: [facility] Address: [address] [place], [place] [address] Performed By: #### 2 4323-8, 03042-0 ####[facility] LABCLIA [id number] [place] [address] [place] ALP [Catalytic activity/Vol] 72 U/L Normal 38-113 [facility] Comment on above: Order Comment: Speci men Type: BLOOD SPECIMENOrdering Facility: [facility] Address: [address] [place] [address] Performed By: #### 2 4323-8, ####[facility] LABCLIA [id number] [place] [address] [place] ALT [Catalytic activity/Vol] 56 U/L High 10-54 [facility] Comment on above: Order Comment: Speci men Type: BLOOD SPECIMENOrdering Facility: [facility] Address: [address] [place], [place] [address] Performed By: #### 2 4323-8, 36074-6 ####[facility] LABCLIA [id number] [place] [address] [place] Anion gap [Moles/Vol] 10 mmol/L Normal 9-18 [facility] Comment on above: Order Comment: Speci men Type: BLOOD SPECIMENOrdering Facility: [facility] Address: [address] [place], [place] [address] Performed By: #### 2 4323-8, 38835-5 ####[facility] LABCLIA [id number] [place] [id number] [place] AST [Catalytic activity/Vol] 25 U/L Normal 14-40 [facility] Comment on above: Order Comment: Speci men Type: BLOOD SPECIMENOrdering Facility: [facility] Address: [address] [place] [address] Performed By: #### 2 4323-8, ####[facility] LABCLIA [id number] [place] [id number] [place] Bilirubin [Mass/Vol] 0.6 mg/dL Normal 0.2-1.3 [facility] Comment on above: Order Comment: Speci men Type: BLOOD SPECIMENOrdering Facility: [facility] Address: [address] [place], [place] [address] Performed By: #### 2 4323-8, ####[facility] LABCLIA [id number] [place] [address] [place] Calcium [Mass/Vol] 9.3 mg/dL Normal 8.5-10.2 [facility] Comment on above: Order Comment: Speci men Type: BLOOD SPECIMENOrdering Facility: [facility] Address: [address] [place] [address] Performed By: #### 2 4323-8, ####[facility] LABCLIA [id number] [place] [address] [place] Chloride [Moles/Vol] 99 mmol/L Normal 97-105 [facility] Comment on above: Order Comment: Speci men Type: BLOOD SPECIMENOrdering Facility: [facility] Address: [address] [place] [address] Performed By: #### 2 4323-8, ####[facility] LABCLIA [id number] [place] [id number] [place] CO2 [Moles/Vol] 30 mmol/L Normal 22-30 [facility] Comment on above: Order Comment: Speci men Type: BLOOD SPECIMENOrdering Facility: [facility] Address: [address] [place], [place] [address] Performed By: #### 2 4323-8, ####[facility] [id number] [address] STATES OF [facility] Creatinine [Mass/Vol] 1.03 mg/dL Normal 0.73-1.22 [facility] Comment on above: Order Comment: Aaliyah gibson Type: BLOOD SPECIMENOrdering Facility: [facility] Address: [address] [place] [address] Performed By: #### 2 4323-8, ####[facility] [id number] [address] STATES OF [facility] ESTIMATED GLOMERULAR FILTRATION RATE 85 mL/min/1.73m??? Normal >=60 [facility] Comment on above: Order Comment: Aaliyah gibson Type: BLOOD SPECIMENOrdering Facility: [facility] Address: [address] [place] [address] Result Comment: Laurita mated Glomerular Filtration Rate [...] actual GFR. Performed By: #### 2 4323-8, ####[facility] [id number] [place] [address] [place] Glucose [Mass/Vol] 192 mg/dL High 74-99 [facility] Comment on above: Order Comment: Aaliyah gibson Type: BLOOD SPECIMENOrdering Facility: [facility] Address: [address] [place] [address] Result Comment: The [place] Diabetes Association (ADA) provides guidance for cutoff [...] Standards of Medical Care in Diabetes 2016, [place] [employer]. Diabetes Care. 2016.39(Suppl 1). Performed By: #### 2 4322-10, ####[facility] LABCLIA [id number] [place] [address] [place] Potassium [Moles/Vol] 3.2 mmol/L Low 3.7-5.1 [facility] Comment on above: Order Comment: Speci men Type: BLOOD SPECIMENOrdering Facility: [facility] Address: [address] [place] [address] Performed By: #### 2 4322-10, ####[facility] LABCLIA [id number] [place] [address] [place] Protein [Mass/Vol] 6.6 g/dL Normal 6.3-8.0 [facility] Comment on above: Order Comment: Speci men Type: BLOOD SPECIMENOrdering Facility: [facility] Address: [address] [place], [place] [address] Performed By: #### 2 4322-10, ####[facility] LABCLIA [id number] [facility] [address] [place] Sodium [Moles/Vol] 139 mmol/L Normal 136-144 [facility] Comment on above: Order Comment: Speci men Type: BLOOD SPECIMENOrdering Facility: [facility] Address: [address] [place] [phone] Performed By: #### 2 43205-13, ####[facility] LABCLIA [id number] [place] [address] [place] Urea nitrogen [Mass/Vol] 15 mg/dL Normal 9-24 [facility] Comment on above: Order Comment: Speci men Type: BLOOD SPECIMENOrdering Facility: [facility] Address: [address] [place] [address] Performed By: #### 2 4323-8, 67803-5 ####[facility] LABCLIA [id number] [place] [address] [place] Magnesium SerPl-mCncon 09-04 Magnesium [Mass/Vol] 2.2 mg/dL Normal 1.7-2.3 [facility] Comment on above: Order Comment: Speci men Type: BLOOD SPECIMENOrdering Facility: [facility] Address: [address] [place] [address] Performed By: #### 2 4323-8, 12811-9 ####[facility] LABCLIA [id number] [place] [address] [place] PT EDon 09-04-2021 PT ED Normal [facility] CASE MANAGEMon 09-03-2021 CASE MANAGEM Normal [facility] CBC panel Auto (Bld)on 09-03 Erythrocyte distribution width (RBC) [Ratio] 15.4 % High 11.5-15.0 [facility] Comment on above: Order Comment: Speci men Type: BLOOD SPECIMENOrdering Facility: [facility] Address: [address] [place], [place] [address] Performed By: #### 5 8410-2 ####[facility] LABCLIA [id number] [place] [address] [place] Hematocrit (Bld) [Volume fraction] 43.8 % Normal 39.0-51.0 [facility] Comment on above: Order Comment: Speci men Type: BLOOD SPECIMENOrdering Facility: [facility] Address: [address] [place], [place] [address] Performed By: #### 5 8410-2 ####[facility] [id number] [place] [address] [place] Hemoglobin (Bld) [Mass/Vol] 13.9 g/dL Normal 13.0-17.0 [facility] Comment on above: Order Comment: Speci men Type: BLOOD SPECIMENOrdering Facility: [facility] Address: [address] [place], [place] [address] Performed By: #### 5 8410-2 ####[facility] [id number] [place] [address] [place] MCH (RBC) [Entitic mass] 29.6 pg Normal 26.0-34.0 [facility] Comment on above: Order Comment: Speci men Type: BLOOD SPECIMENOrdering Facility: [facility] Address: [address] [place], [place] [address] Performed By: #### 5 8410-2 ####[facility] [id number] [address] [place] MCHC (RBC) [Mass/Vol] 31.7 g/dL Normal 30.5-36.0 [facility] Comment on above: Order Comment: Speci men Type: BLOOD SPECIMENOrdering Facility: [facility] Address: [address] [place] [address] Performed By: #### 5 8410-2 ####[facility] [id number] [address] [place] MCV (RBC) [Entitic vol] 93.2 fL Normal 80.0-100.0 [facility] Comment on above: Order Comment: Speci men Type: BLOOD SPECIMENOrdering Facility: [facility] Address: [address] [place] [address] Performed By: #### 5 8410-2 ####[facility] [id number] [place] [id number] [place] Nucleated RBC (Bld) [#/Vol] 10*3/uL Normal <0.01 [facility] Comment on above: Order Comment: Speci men Type: BLOOD SPECIMENOrdering Facility: [facility] Address: [address] [place] [address] Performed By: #### 5 8410-2 ####[facility] LABCLIA [id number] [place] [address] [place] Platelet mean volume (Bld) [Entitic vol] 9.9 fL Normal 9.0-12.7 [facility] Comment on above: Order Comment: Speci men Type: BLOOD SPECIMENOrdering Facility: [facility] Address: [address] [place] [address] Performed By: #### 5 8410-2 ####[facility] LABCLIA [id number] [place] [address] [place] Platelets (Bld) [#/Vol] 212 10*3/uL Normal 150-400 [facility] Comment on above: Order Comment: Speci men Type: BLOOD SPECIMENOrdering Facility: [facility] Address: [address] [place], [place] [address] Performed By: #### 5 8410-2 ####[facility] LABCLIA [id number] [place] [address] [place] RBC (Bld) [#/Vol] 4.70 10*6/uL Normal 4.20-6.00 [facility] Comment on above: Order Comment: Speci men Type: BLOOD SPECIMENOrdering Facility: [facility] Address: [address] [place], [place] [address] Performed By: #### 5 8410-2 ####[facility] LABCLIA [id number] [place] [address] [place] WBC (Bld) [#/Vol] 5.51 10*3/uL Normal 3.70-11.00 [facility] Comment on above: Order Comment: Speci men Type: BLOOD SPECIMENOrdering Facility: [facility] Address: [address] [place] [address] Performed By: #### 5 8410-2 ####[facility] LABCLIA [id number] [place] [address] [place] Comprehensive metabolic 2000 panelon 09-03-2021 Albumin [Mass/Vol] 3.7 g/dL Low 3.9-4.9 [facility] Comment on above: Order Comment: Speci men Type: BLOOD SPECIMENOrdering Facility: [facility] Address: [address] [place] [address] Performed By: #### 2 4323-8, 61221-7, ####[facility] LABCLIA [id number] [place] [address] [place] ALP [Catalytic activity/Vol] 83 U/L Normal 38-113 [facility] Comment on above: Order Comment: Speci men Type: BLOOD SPECIMENOrdering Facility: [facility] Address: [address] [place] [address] Performed By: #### 2 4323-8, 15749-2, ####[facility] LABCLIA [id number] [address] [place] ALT [Catalytic activity/Vol] 65 U/L High 10-54 [facility] Comment on above: Order Comment: Speci men Type: BLOOD SPECIMENOrdering Facility: [facility] Address: [address] [place], [place] [address] Performed By: #### 2 4323-8, 54549-8, ####[facility] LABCLIA [id number] [place] [id number] [place] Anion gap [Moles/Vol] 9 mmol/L Normal 9-18 [facility] Comment on above: Order Comment: Speci men Type: BLOOD SPECIMENOrdering Facility: [facility] Address: [address] [place], [place] [address] Performed By: #### 2 4323-8, 50201-1, ####[facility] LABCLIA [id number] [place] [address] [place] AST [Catalytic activity/Vol] 35 U/L Normal 14-40 [facility] Comment on above: Order Comment: Speci men Type: BLOOD SPECIMENOrdering Facility: [facility] Address: [address] [place], [place] [address] Performed By: #### 2 4323-8, 65075-5, ####[facility] LABCLIA [id number] [place] [address] [place] Bilirubin [Mass/Vol] 0.6 mg/dL Normal 0.2-1.3 [facility] Comment on above: Order Comment: Speci men Type: BLOOD SPECIMENOrdering Facility: [facility] Address: [address] [place], [place] [address] Performed By: #### 2 4323-8, 43066-0, ####[facility] LABCLIA [id number] [place] [address] [place] Calcium [Mass/Vol] 9.3 mg/dL Normal 8.5-10.2 [facility] Comment on above: Order Comment: Speci men Type: BLOOD SPECIMENOrdering Facility: [facility] Address: [address] [place], [place] [address] Performed By: #### 2 4323-8, 94024-3, 21246-1 ####[facility] LABCLIA [id number] [place] [id number] [place] Chloride [Moles/Vol] 102 mmol/L Normal 97-105 [facility] Comment on above: Order Comment: Speci men Type: BLOOD SPECIMENOrdering Facility: [facility] Address: [address] [place], [place] [address] Performed By: #### 2 4323-8, 99894-9, ####[facility] LABCLIA [id number] [place] [id number] [place] CO2 [Moles/Vol] 32 mmol/L High 22-30 [facility] Comment on above: Order Comment: Speci men Type: BLOOD SPECIMENOrdering Facility: [facility] Address: [address] [place], [place] [phone] Performed By: #### 2 4323-8, 69694-9, ####[facility] LABCLIA [id number] [place] [address] [place] Creatinine [Mass/Vol] 1.08 mg/dL Normal 0.73-1.22 [facility] Comment on above: Order Comment: Speci men Type: BLOOD SPECIMENOrdering Facility: [facility] Address: [address] [place], [place] [address] Performed By: #### 2 4323-8, 28417-2, ####[facility] LABIA [id number] [address] [place] ESTIMATED GLOMERULAR FILTRATION RATE 80 mL/min/1.73m??? Normal >=60 [facility] Comment on above: Order Comment: Speci men Type: BLOOD SPECIMENOrdering Facility: [facility] Address: [address] [place], [place] [phone] Result Comment: Laurita mated Glomerular Filtration Rate [...] actual GFR. Performed By: #### 2 4323-8, 18593-9, ####[facility] LABCLIA [id number] [address] [address] [place] Glucose [Mass/Vol] 98 mg/dL Normal 74-99 [facility] Comment on above: Order Comment: Speci men Type: BLOOD SPECIMENOrdering Facility: [facility] Address: [address] [place] [address] Result Comment: The [place] Diabetes Association (ADA) provides guidance for cutoff [...] Standards of Medical Care in Diabetes 2016, [place] [employer]. Diabetes Care. 2016.39(Suppl 1). Performed By: #### 2 4323-8, 77056-2, ####[facility] LABIA [id number] [address] [address] [place] Potassium [Moles/Vol] 3.8 mmol/L Normal 3.7-5.1 [facility] Comment on above: Order Comment: Speci men Type: BLOOD SPECIMENOrdering Facility: [facility] Address: [address] [place] [address] Performed By: #### 2 4323-8, 29834-4, ####[facility] LABIA [id number] [address] [address] [place] Protein [Mass/Vol] 6.9 g/dL Normal 6.3-8.0 [facility] Comment on above: Order Comment: Speci men Type: BLOOD SPECIMENOrdering Facility: [facility] Address: [address] [place], [place] Performed By: #### 2 4323-8, 64339-7, ####[facility] LABCLIA [id number] [place] [id number] [place] Sodium [Moles/Vol] 143 mmol/L Normal 136-144 [facility] Comment on above: Order Comment: Speci men Type: BLOOD SPECIMENOrdering Facility: [facility] Address: [address] [place] [address] Performed By: #### 2 4323-8, 93558-2, ####[facility] LABIA [id number] [place] [id number] [place] Urea nitrogen [Mass/Vol] 16 mg/dL Normal 9-24 [facility] Comment on above: Order Comment: Speci men Type: BLOOD SPECIMENOrdering Facility: [facility] Address: [address] [place] [address] Performed By: #### 2 4323-8, 39516-0, ####[facility] LABIA [id number] [place] [id number] [place] ED NOTEon 09-03-2021 ED NOTE HNO ID: [id number] Author: Cinthya Gimenez RN Service: Emergency Medicine Author Type: Registered Nurse Type: ED Notes Filed: 09/02/2021 10:46 PM Note Text: Report given to [place] LOPEZ Normal [facility] Iron and Iron binding capaci ty panelon 09-03-2021 Iron [Mass/Vol] 42 ug/dL Normal 41-186 [facility] Comment on above: Order Comment: Speci men Type: BLOOD SPECIMENOrdering Facility: [facility] Address: [address] [place] [address] Performed By: #### 2 4323-8, 72439-1, ####[facility] LABIA [id number] [place] [id number] [place] Iron binding capacity [Mass/Vol] 261 ug/dL Normal 232-386 [facility] Comment on above: Order Comment: Speci men Type: BLOOD SPECIMENOrdering Facility: [facility] Address: [address] [place] [address] Performed By: #### 2 4323-8, 08546-6, 36190-2 ####[facility] LABCLIA [id number] [address] OF [facility] Iron/TIBC [Molar ratio] 16.1 % Normal 15.0-57.0 [facility] Comment on above: Order Comment: Speci men Type: BLOOD SPECIMENOrdering Facility: [facility] Address: [address] [place] [address] Performed By: #### 2 4323-8, 90592-5, 62513-6 ####[facility] LABIA [id number] [address] [place] Magnesium SerPl-mCncon 09-03 Magnesium [Mass/Vol] 2.4 mg/dL High 1.7-2.3 [facility] Comment on above: Order Comment: Speci men Type: BLOOD SPECIMENOrdering Facility: [facility] Address: [address] [place] [address] Performed By: #### 2 4323-8, 27138-6, 83127-9 ####[facility] LABIA [id number] [address] [place] THERAPY NTon 09-03-2021 THERAPY NT Normal [facility] THERAPY NT Normal [facility] CBC W Auto Differential pane l (Bld)on 09-02-2021 Basophils (Bld) [#/Vol] 0.03 10*3/uL Normal <0.11 [facility] Comment on above: Order Comment: Speci men Type: BLOOD SPECIMENOrdering Facility: [facility] Address: [address] [place], [place] [address] Performed By: #### 5 7021-8 ####[facility] [id number] [address] OF [facility] Basophils/100 WBC (Bld) 0.5 % Normal [facility] Comment on above: Order Comment: Speci men Type: BLOOD SPECIMENOrdering Facility: [facility] Address: [address] [place] [address] Performed By: #### 5 7021-8 ####[facility] [id number] [place] [address] [place] Differential cell count method Nom (Bld) Auto Normal [facility] Comment on above: Order Comment: Speci men Type: BLOOD SPECIMENOrdering Facility: [facility] Address: [address] [place] [address] Performed By: #### 5 7021-8 ####[facility] [id number] [place] [address] [place] Eosinophils (Bld) [#/Vol] 10*3/uL Normal <0.46 [facility] Comment on above: Order Comment: Speci men Type: BLOOD SPECIMENOrdering Facility: [facility] Address: [address] [place] [address] Performed By: #### 5 7021-8 ####[facility] [id number] [place] [address] OF [facility] Eosinophils/100 WBC (Bld) 0.3 % Normal [facility] Comment on above: Order Comment: Speci men Type: BLOOD SPECIMENOrdering Facility: [facility] Address: [address] [place], [place] [address] Performed By: #### 5 7021-8 ####[facility] [id number] [place] [address] [place] Erythrocyte distribution width (RBC) [Ratio] 15.2 % High 11.5-15.0 [facility] Comment on above: Order Comment: Speci men Type: BLOOD SPECIMENOrdering Facility: [facility] Address: [address] [place], [place] [address] Performed By: #### 5 7021-8 ####[facility] [place] [id number] [address] OF [facility] Hematocrit (Bld) [Volume fraction] 40.8 % Normal 39.0-51.0 [facility] Comment on above: Order Comment: Speci men Type: BLOOD SPECIMENOrdering Facility: [facility] Address: [address] [address] [place], [place] [address] Performed By: #### 5 7021-8 ####[facility] [id number] [place] [address] STATES OF [facility] Hemoglobin (Bld) [Mass/Vol] 13.5 g/dL Normal 13.0-17.0 [facility] Comment on above: Order Comment: Speci men Type: BLOOD SPECIMENOrdering Facility: [facility] Address: [address] [place], [place] [address] Performed By: #### 5 7021-8 ####[facility] [id number] [place] [address] OF [facility] IMMATURE GRAN % 0.3 % Normal [facility] Comment on above: Order Comment: Speci men Type: BLOOD SPECIMENOrdering Facility: [facility] Address: [address] [place], [place] [address] Performed By: #### 5 7021-8 ####[facility] [id number] [place] [address] IMMATURE GRAN ABS <0.03 Normal <0.10 [facility] Comment on above: Order Comment: Speci men Type: BLOOD SPECIMENOrdering Facility: [facility] Address: [address] [place], [place] [address] Performed By: #### 5 7021-8 ####[facility] [id number] [place] [address] [place] Lymphocytes (Bld) [#/Vol] 1.42 10*3/uL Normal 1.00-4.00 [facility] Comment on above: Order Comment: Speci men Type: BLOOD SPECIMENOrdering Facility: [facility] Address: [address] [place] [address] Performed By: #### 5 7021-8 ####[facility] [id number] [address] STATES OF [facility] Lymphocytes/100 WBC (Bld) 21.7 % Normal [facility] Comment on above: Order Comment: Speci men Type: BLOOD SPECIMENOrdering Facility: [facility] Address: [address] [place] [address] Performed By: #### 5 7021-8 ####[facility] [id number] [address] STATES OF [place] MCH (RBC) [Entitic mass] 29.8 pg Normal 26.0-34.0 [facility] Comment on above: Order Comment: Speci men Type: BLOOD SPECIMENOrdering Facility: [facility] Address: [address] [place] [address] Performed By: #### 5 7021-8 ####[facility] [id number] [address] STATES [facility] MCHC (RBC) [Mass/Vol] 33.1 g/dL Normal 30.5-36.0 [facility] Comment on above: Order Comment: Speci men Type: BLOOD SPECIMENOrdering Facility: [facility] Address: [address] [place] [address] Performed By: #### 5 7021-8 ####[facility] [id number] [address] [place] [address] [place] MCV (RBC) [Entitic vol] 90.1 fL Normal 80.0-100.0 [facility] Comment on above: Order Comment: Speci men Type: BLOOD SPECIMENOrdering Facility: [facility] Address: [address] [place], [place] [address] Performed By: #### 5 7021-8 ####[facility] [id number] [place] [address] [place] Monocytes (Bld) [#/Vol] 0.42 10*3/uL Normal <0.87 [facility] Comment on above: Order Comment: Speci men Type: BLOOD SPECIMENOrdering Facility: [facility] Address: [address] [place] [address] Performed By: #### 5 7021-8 ####[facility] [id number] [address] STATES OF [place] Monocytes/100 WBC (Bld) 6.4 % Normal C [facility] Comment on above: Order Comment: Speci men Type: BLOOD SPECIMENOrdering Facility: [facility] Address: [address] [place], [place] [address] Performed By: #### 5 7021-8 ####[facility] [id number] [place] [address] [place] Neutrophils (Bld) [#/Vol] 4.62 10*3/uL Normal 1.45-7.50 [facility] Comment on above: Order Comment: Speci men Type: BLOOD SPECIMENOrdering Facility: [facility] Address: [address] [place], [place] [address] Performed By: #### 5 7021-8 ####[facility] [id number] [place] [address] [place] Neutrophils/100 WBC (Bld) 70.8 % Normal [facility] Comment on above: Order Comment: Speci men Type: BLOOD SPECIMENOrdering Facility: [facility] Address: [address] [place], [place] [address] Performed By: #### 5 7021-8 ####[facility] [id number] [place] [address] Nucleated RBC (Bld) [#/Vol] 10*3/uL Normal <0.01 [facility] Comment on above: Order Comment: Speci men Type: BLOOD SPECIMENOrdering Facility: [facility] Address: [address] [place], [place] [address] Performed By: #### 5 7021-8 ####[facility] [id number] [place] [address] [place] Nucleated RBC/100 WBC (Bld) [Ratio] 0.0 /100 WBC Normal [facility] Comment on above: Order Comment: Speci men Type: BLOOD SPECIMENOrdering Facility: [facility] Address: [address] [place], [place] [address] Performed By: #### 5 7021-8 ####[facility] [id number] [place] [address] [place] Platelet mean volume (Bld) [Entitic vol] 9.8 fL Normal 9.0-12.7 [facility] Comment on above: Order Comment: Speci men Type: BLOOD SPECIMENOrdering Facility: [facility] Address: [address] [place] [address] Performed By: #### 5 7021-8 ####[facility] [id number] [place] [address] [place] Platelets (Bld) [#/Vol] 206 10*3/uL Normal 150-400 [facility] Comment on above: Order Comment: Speci men Type: BLOOD SPECIMENOrdering Facility: [facility] Address: [address] [place], [place] [address] Performed By: #### 5 7021-8 ####[facility] [id number] [place] [address] [place] RBC (Bld) [#/Vol] 4.53 10*6/uL Normal 4.20-6.00 [facility] Comment on above: Order Comment: Speci men Type: BLOOD SPECIMENOrdering Facility: [facility] Address: [address] [place], [place] [address] Performed By: #### 5 7021-8 ####[facility] [id number] [place] [address] [place] WBC (Bld) [#/Vol] 6.53 10*3/uL Normal 3.70-11.00 [facility] Comment on above: Order Comment: Speci men Type: BLOOD SPECIMENOrdering Facility: [facility] Address: [address] [place] [address] Performed By: #### 5 7021-8 ####[facility] [id number] [place] [address] [place] CNNURSEon 09-02-2021 CNNURSE Normal [facility] CNOVSPon 09-02-2021 CNOVSP Normal [facility] CT CHEST W IVCON PEon 2021 CT CHEST W IVCON PE Normal [facility] Comprehensive metabolic 2000 panelon 09-02-2021 Albumin [Mass/Vol] 4.1 g/dL Normal 3.9-4.9 [facility] Comment on above: Order Comment: Speci men Type: BLOOD SPECIMENOrdering Facility: [facility] Address: [address] [place] [address] Performed By: #### 2 4323-8 ####[facility] [id number] [place] [address] [place] ALP [Catalytic activity/Vol] 82 U/L Normal 38-113 [facility] Comment on above: Order Comment: Speci men Type: BLOOD SPECIMENOrdering Facility: [facility] Address: [address] [place] [address] Performed By: #### 2 4323-8 ####[facility] [id number] [address] ALT [Catalytic activity/Vol] 79 U/L High 10-54 [facility] Comment on above: Order Comment: Speci men Type: BLOOD SPECIMENOrdering Facility: [facility] Address: [address] [place] [address] Performed By: #### 2 4323-8 ####[facility] [id number] [place] [address] [place] Anion gap [Moles/Vol] 10 mmol/L Normal 9-18 [facility] Comment on above: Order Comment: Speci men Type: BLOOD SPECIMENOrdering Facility: [facility] Address: [address] [place] [address] Performed By: #### 2 4323-8 ####[facility] [id number] [address] STATES [facility] AST [Catalytic activity/Vol] 50 U/L High 14-40 [facility] Comment on above: Order Comment: Speci men Type: BLOOD SPECIMENOrdering Facility: [facility] Address: [address] [place], [place] [address] Performed By: #### 2 4323-8 ####[facility] [id number] [place] [address] [place] Bilirubin [Mass/Vol] 1.0 mg/dL Normal 0.2-1.3 [facility] Comment on above: Order Comment: Speci men Type: BLOOD SPECIMENOrdering Facility: [facility] Address: [address] [place] [address] Performed By: #### 2 4323-8 ####[facility] [id number] [place] [address] [place] Calcium [Mass/Vol] 9.1 mg/dL Normal 8.5-10.2 [facility] Comment on above: Order Comment: Speci men Type: BLOOD SPECIMENOrdering Facility: [facility] Address: [address] [place] [address] Performed By: #### 2 4323-8 ####[facility] [id number] [place] [address] [place] Chloride [Moles/Vol] 107 mmol/L High 97-105 [facility] Comment on above: Order Comment: Speci men Type: BLOOD SPECIMENOrdering Facility: [facility] Address: [address] [place] [address] Performed By: #### 2 4323-8 ####[facility] [id number] [place] [address] [place] CO2 [Moles/Vol] 25 mmol/L Normal 22-30 [facility] Comment on above: Order Comment: Speci men Type: BLOOD SPECIMENOrdering Facility: [facility] Address: [address] [place], [place] [address] Performed By: #### 2 4323-8 ####[facility] [id number] [place] [address] [place] Creatinine [Mass/Vol] 1.07 mg/dL Normal 0.73-1.22 [facility] Comment on above: Order Comment: Speci men Type: BLOOD SPECIMENOrdering Facility: [facility] Address: [address] [place], [place] [address] Performed By: #### 2 4323-8 ####[facility] [id number] [place] [address] [place] ESTIMATED GLOMERULAR FILTRATION RATE 81 mL/min/1.73m??? Normal >=60 [facility] Comment on above: Order Comment: Speci men Type: BLOOD SPECIMENOrdering Facility: [facility] Address: [address] Result Comment: Laurita mated Glomerular Filtration [...] By: #### 2 4323-8 ####[facility] [id number] [place] [address] [place] Glucose [Mass/Vol] 127 mg/dL High 74-99 [facility] Comment on above: Order Comment: Aaliyah gibson Type: BLOOD SPECIMENOrdering Facility: [facility] Address: [address] [place] [address] Result Comment: The [place] Diabetes Association (ADA) provides guidance for cutoff [...] Standards of Medical Care in Diabetes 2016, [place] Diabetes Association. Diabetes Care. 2016.39(Suppl 1). Performed By: #### 2 4323-8 ####[facility] [id number] [place] [address] [place] Potassium [Moles/Vol] 3.6 mmol/L Low 3.7-5.1 [facility] Comment on above: Order Comment: Aaliyah gibson Type: BLOOD SPECIMENOrdering Facility: [facility] Address: [address] Performed By: #### 2 4323-8 ####[facility] [id number] [place] [address] [place] Protein [Mass/Vol] 6.8 g/dL Normal 6.3-8.0 [facility] Comment on above: Order Comment: Speci men Type: BLOOD SPECIMENOrdering Facility: [facility] Address: [address] [place] [address] Performed By: #### 2 4323-8 ####[facility] [id number] [place] [address] [place] Sodium [Moles/Vol] 142 mmol/L Normal 136-144 [facility] Comment on above: Order Comment: Speci men Type: BLOOD SPECIMENOrdering Facility: [facility] Address: [address] [place] [address] Performed By: #### 2 4323-8 ####[facility] [id number] [address] STATES [facility] Urea nitrogen [Mass/Vol] 14 mg/dL Normal 9-24 [facility] Comment on above: Order Comment: Speci men Type: BLOOD SPECIMENOrdering Facility: [facility] Address: [address] [place] [address] Performed By: #### 2 4323-8 ####[facility] [id number] [place] [address] [place] D dimer FEU PPP-mCncon 09-02 Fibrin D-dimer FEU (PPP) [Mass/Vol] 1920 ng/mL FEU High <500 [facility] Comment on above: Order Comment: Speci men Type: BLOOD SPECIMENOrdering Facility: [facility] Address: [address] [place], [place] [address] Performed By: #### 4 8065-7 ####[facility] [id number] [address] OF [facility] ED NOTEon 09-02-2021 ED NOTE HNO ID: [id number] Author: Lisa Bright RN Service: ? Author Type: Registered Nurse Type: ED Notes Filed: 09/02/2021 7:02 PM Note Text: Bed: E12-21 Expected date: Expected time: Means of arrival: Comments: Normal [facility] ED NOTE HNO ID: [id number] Author: Luma Sanford RN Service: Emergency Medicine Author Type: Registered Nurse Type: ED Notes Filed: 09/02/2021 6:36 PM Note Text: Still no staff assigned to patient, RN to Dr Fleming to bead picker pt at this time. Normal [facility] ED PROV NOTEon 09-02-2021 ED PROV NOTE Normal [facility] Ferritin SerPl-mCncon 2021 Ferritin [Mass/Vol] 332.0 ng/mL Normal 30.3-565.7 [facility] Comment on above: Order Comment: Speci men Type: BLOOD SPECIMENOrdering Facility: [facility] Address: [address] [place] [address] Performed By: #### 3 034-6, 2276-4 ####[facility] [id number] [address] OF [place] Fibrin D-dimer FEU (PPP) [Ma ss/Vol]on 09-02-2021 D DIMER AGE-RELATED CUTOFF 570 ng/mL FEU Normal [facility] Comment on above: Order Comment: Speci men Type: BLOOD SPECIMENOrdering Facility: [facility] Address: [address] [place] [address] Performed By: #### 4 8065-7 ####[facility] [id number] [address] STATES OF [place] HIGH SENSITIVITY TROPONIN To n 09-02-2021 HIGH SENSITIVITY BEAU 33 ng/L High <12 [facility] Comment on above: Order Comment: Speci men Type: BLOOD SPECIMENOrdering Facility: [facility] Address: [address] [place] [address] Result Comment: When assessing risk for acute [...] MACE. Performed By: #### 5 5454-3, HSTNT ####[facility] [id number] [address] STATES OF [facility] HIGH SENSITIVITY BEAU 33 ng/L High <12 [facility] Comment on above: Order Comment: Speci men Type: BLOOD SPECIMENOrdering Facility: [facility] Address: [address] [place] [address] Result Comment: When assessing risk for acute [...] day MACE. Performed By: #### H STNT ####[facility]CL[facility] [id number] [address] STATES OF [place] HISTORY PHYSICALon HISTORY PHYSICAL Normal [facility] HbA1c (Bld)on 09-02-2021 Average glucose Estimated from glycated hemoglobin (Bld) [Mass/Vol] 137 mg/dL Normal [facility] Comment on above: Order Comment: Speci men Type: BLOOD SPECIMENOrdering Facility: [facility] Address: [address] [place] [address] Result Comment: eAG: (Estimated average glucose) is a calculated value from HgbA1c and is parts counter representative of the average blood glucose level in the last 2-3 month period. Performed By: #### 5 5454-3, HSTNT ####[facility] [id number] [place] [address] [place] HbA1c (Bld) [Mass fraction] 6.4 % High 4.3-5.6 [facility] Comment on above: Order Comment: Aaliyah gibson Type: BLOOD SPECIMENOrdering Facility: [facility] Address: [address] [place] [address] Result Comment: [place] Diabetes Association guidelines indicate that patients with HgbA1c in the range 5.7-6.4% are at increased risk for development of diabetes, and intervention by lifestyle modification may be beneficial. HgbA1c greater or equal to 6.5% is considered diagnostic of diabetes. Performed By: #### 5 5454-3, HSTNT ####[facility] [id number] [place] [address] [place] LDH SerPl-cCncon 09-02-2021 LDH [Catalytic activity/Vol] 336 U/L High 135-225 [facility] Comment on above: Order Comment: Speci paige Type: BLOOD SPECIMENOrdering Facility: [facility] Address: [address] [place] [address] Performed By: #### 2 532-0 ####[facility] [id number] [place] [address] [place] Magnesium SerPl-mCncon 09-02 Magnesium [Mass/Vol] 2.2 mg/dL Normal 1.7-2.3 [facility] Comment on above: Order Comment: Ronyi paige Type: BLOOD SPECIMENOrdering Facility: [facility] Address: [address] [place] [address] Performed By: #### 3 3762-6, 3016-3, 15674-7 ####[facility] [id number] [place] [address] [place] NT-proBNP SerPl-mCncon 09-02 Natriuretic peptide.B prohormone N-Terminal [Mass/Vol] 3442 pg/mL High <125 [facility] Comment on above: Order Comment: Aaliyah gibson Type: BLOOD SPECIMENOrdering Facility: [facility] Address: [address] [place] [address] Performed By: #### 3 3762-6, 3016-3, 45749-6 ####[facility] [id number] [address] STATES OF [place] No Panel Informationon 09-02 [facility] PT panel Coag (PPP)on 2021 INR Coag (PPP) [Relative time] 1.1 {INR} Normal 0.9-1.3 [facility] Comment on above: Order Comment: Aaliyah gibson Type: BLOOD SPECIMENOrdering Facility: [facility] Address: [address] [place] [address] Result Comment: Constanza min K Antagonist (VKA) Therapeutic Range: INR 2 to 3 (Target INR of 2.5)Note: For patients treated with VKA drugs, such as warfarin, the [place] [employer] 2012 Guideline recommends [...] al. Chest 2012, 141:7S-47SNishimkhalida RA, et al. [facility] 2017, 70: 252-289 Performed By: #### 3 4528-0, 02900-5 ####[facility] [id number] [place] [address] [place] PT Coag (PPP) [Time] 12.0 s Normal 9.7-13.0 [facility] Comment on above: Order Comment: Speci men Type: BLOOD SPECIMENOrdering Facility: [facility] Address: [address] [place] [address] Performed By: #### 3 4528-0, 65863-6 ####[facility] [id number] [place] [address] [place] SARS-CoV-2 RNA Resp Ql SANDOVAL+p robeon 09-02-2021 SARS-CoV-2 (COVID-19) RNA SANDOVAL+probe Ql (Resp) COVID 19 RESULT: SARS-CoV-2 (Agent of COVID-19) Not Detected by RT-PCR or equivalent method. This test has been authorized by FDA under an Emergency Use Authorization (EUA). Normal [facility] Comment on above: Performed By: #### 9 4500-6 ####[facility] [id number] [place] [address] [place] TSH SerPl-aCncon 09-02-2021 TSH Qn 1.460 m[IU]/L Normal 0.270-4.20 0 [facility] Comment on above: Order Comment: Speci men Type: BLOOD SPECIMENOrdering Facility: [facility] Address: [address] [place], [place] [address] Performed By: #### 3 3762-6, 3016-3, 06162-3 ####[facility] [id number] [place] [address] [place] Transferrin SerPl-mCncon Transferrin [Mass/Vol] 234 mg/dL Normal 200-360 [facility] Comment on above: Order Comment: Speci men Type: BLOOD SPECIMENOrdering Facility: [facility] Address: [address] [place], [place] [address] Performed By: #### 3 034-6, 2276-4 ####[facility] [id number] [place] [address] [place] XR CHEST 2V FRONTAL/LATon XR CHEST 2V FRONTAL/LAT [facility] aPTT PPPon 09-02-2021 aPTT Coag (PPP) [Time] 28.7 s Normal 23.0-32.4 [facility] Comment on above: Order Comment: Speci men Type: BLOOD SPECIMENOrdering Facility: [facility] Address: [address] [place] [address] Performed By: #### 3 4528-0, 44155-2 ####[facility] [id number] [place] [address] [place] CNPNon 09-01-2021 CNPN Normal [facility] CNNURSEon 08-27-2021 CNNURSE Normal [facility] CBC W Auto Differential pane l (Bld)on 08-19-2021 Basophils (Bld) [#/Vol] 0.04 10*3/uL Normal <0.11 [facility] Comment on above: Order Comment: Speci men Type: BLOOD SPECIMENOrdering Facility: [facility] Address: [address] [place] [address] Performed By: #### 5 7021-8 ####[facility] [id number] [place] [address] [place] Basophils/100 WBC (Bld) 0.7 % Normal C [facility] Comment on above: Order Comment: Speci men Type: BLOOD SPECIMENOrdering Facility: [facility] Address: [address] [place] [address] Performed By: #### 5 7021-8 ####[facility] [id number] [place] [address] [place] Differential cell count method Nom (Bld) Auto Normal [facility] Comment on above: Order Comment: Speci men Type: BLOOD SPECIMENOrdering Facility: [facility] Address: [address] [place] [address] Performed By: #### 5 7021-8 ####[facility] [id number] [place] [address] [place] Eosinophils (Bld) [#/Vol] 0.15 10*3/uL Normal <0.46 [facility] Comment on above: Order Comment: Speci men Type: BLOOD SPECIMENOrdering Facility: [facility] Address: [address] [place] [address] Performed By: #### 5 7021-8 ####[facility] [id number] [place] [address] [place] Eosinophils/100 WBC (Bld) 2.5 % Normal [facility] Comment on above: Order Comment: Speci men Type: BLOOD SPECIMENOrdering Facility: [facility] Address: [address] [place] [address] Performed By: #### 5 7021-8 ####[facility] [id number] [place] [address] Erythrocyte distribution width (RBC) [Ratio] 15.0 % Normal 11.5-15.0 [facility] Comment on above: Order Comment: Speci men Type: BLOOD SPECIMENOrdering Facility: [facility] Address: [address] [place] [address] Performed By: #### 5 7021-8 ####[facility] [id number] [place] [address] [place] Hematocrit (Bld) [Volume fraction] 49.1 % Normal 39.0-51.0 [facility] Comment on above: Order Comment: Speci men Type: BLOOD SPECIMENOrdering Facility: [facility] Address: [address] [place] [address] Performed By: #### 5 7021-8 ####[facility] [id number] [place] [address] [place] Hemoglobin (Bld) [Mass/Vol] 17.0 g/dL Normal 13.0-17.0 [facility] [facility] Comment on above: Order Comment: Speci men Type: BLOOD SPECIMENOrdering Facility: [facility] Address: [address] [place] [address] Performed By: #### 5 7021-8 ####[facility] [id number] [place] [address] [place] IMMATURE GRAN % 0.3 % Normal [facility] Comment on above: Order Comment: Speci men Type: BLOOD SPECIMENOrdering Facility: [facility] Address: [address] [place] [address] Performed By: #### 5 7021-8 ####[facility] [id number] [place] [address] [place] OF [facility] IMMATURE GRAN ABS <0.03 Normal <0.10 [facility] Comment on above: Order Comment: Speci men Type: BLOOD SPECIMENOrdering Facility: [facility] Address: [address] [place], [place] [address] Performed By: #### 5 7021-8 ####[facility] [id number] [place] [address] Lymphocytes (Bld) [#/Vol] 1.58 10*3/uL Normal 1.00-4.00 [facility] Comment on above: Order Comment: Speci men Type: BLOOD SPECIMENOrdering Facility: [facility] Address: [address] [place], [place] [address] Performed By: #### 5 7021-8 ####[facility] [id number] [place] [address] Lymphocytes/100 WBC (Bld) 26.2 % Normal [facility] Comment on above: Order Comment: Speci men Type: BLOOD SPECIMENOrdering Facility: [facility] Address: [address] [place], [place] [address] Performed By: #### 5 7021-8 ####[facility] [id number] [address] MCH (RBC) [Entitic mass] 29.6 pg Normal 26.0-34.0 [facility] Comment on above: Order Comment: Speci men Type: BLOOD SPECIMENOrdering Facility: [facility] Address: [address] [place] [address] Performed By: #### 5 7021-8 ####[facility] [id number] [address] MCHC (RBC) [Mass/Vol] 34.6 g/dL Normal 30.5-36.0 [facility] Comment on above: Order Comment: Speci men Type: BLOOD SPECIMENOrdering Facility: [facility] Address: [address] [place] [address] Performed By: #### 5 7021-8 ####[facility] [id number] [place] [address] MCV (RBC) [Entitic vol] 85.5 fL Normal 80.0-100.0 [facility] Comment on above: Order Comment: Speci men Type: BLOOD SPECIMENOrdering Facility: [facility] Address: [address] [place] [address] Performed By: #### 5 7021-8 ####[facility] [id number] [address] Monocytes (Bld) [#/Vol] 0.49 10*3/uL Normal <0.87 [facility] Comment on above: Order Comment: Speci men Type: BLOOD SPECIMENOrdering Facility: [facility] Address: [address] [place] [address] Performed By: #### 5 7021-8 ####[facility] [id number] [address] [address] [place] Monocytes/100 WBC (Bld) 8.1 % Normal [facility] Comment on above: Order Comment: Speci men Type: BLOOD SPECIMENOrdering Facility: [facility] Address: [address] [place] [address] Performed By: #### 5 7021-8 ####[facility] [id number] [place] [address] [place] Neutrophils (Bld) [#/Vol] 3.74 10*3/uL Normal 1.45-7.50 [facility] Comment on above: Order Comment: Speci men Type: BLOOD SPECIMENOrdering Facility: [facility] Address: [address] [place] [address] Performed By: #### 5 7021-8 ####[facility] [id number] [place] [address] [place] Neutrophils/100 WBC (Bld) 62.2 % Normal [facility] Comment on above: Order Comment: Speci men Type: BLOOD SPECIMENOrdering Facility: [facility] Address: [address] [place], [place] [address] Performed By: #### 5 7021-8 ####[facility] [id number] [place] [address] [place] Nucleated RBC (Bld) [#/Vol] 10*3/uL Normal <0.01 [facility] Comment on above: Order Comment: Speci men Type: BLOOD SPECIMENOrdering Facility: [facility] Address: [address] [place], [place] [address] Performed By: #### 5 7021-8 ####[facility] [id number] [place] [address] [place] Nucleated RBC/100 WBC (Bld) [Ratio] 0.0 /100 WBC Normal [facility] Comment on above: Order Comment: Speci men Type: BLOOD SPECIMENOrdering Facility: [facility] Address: [address] [place], [place] [address] Performed By: #### 5 7021-8 ####[facility] [id number] [place] [address] Platelet mean volume (Bld) [Entitic vol] 10.4 fL Normal 9.0-12.7 [facility] Comment on above: Order Comment: Speci men Type: BLOOD SPECIMENOrdering Facility: [facility] Address: [address] [place], [place] [address] Performed By: #### 5 7021-8 ####[facility] [id number] [place] [address] [place] Platelets (Bld) [#/Vol] 298 10*3/uL Normal 150-400 [facility] Comment on above: Order Comment: Speci men Type: BLOOD SPECIMENOrdering Facility: [facility] Address: [address] [place], [place] [address] Performed By: #### 5 7021-8 ####[facility] [id number] [place] [address] [place] RBC (Bld) [#/Vol] 5.74 10*6/uL Normal 4.20-6.00 [facility] Comment on above: Order Comment: Speci men Type: BLOOD SPECIMENOrdering Facility: [facility] Address: [address] [place] [address] Performed By: #### 5 7021-8 ####[facility] [id number] [place] [address] [place] WBC (Bld) [#/Vol] 6.02 10*3/uL Normal 3.70-11.00 [facility] Comment on above: Order Comment: Speci men Type: BLOOD SPECIMENOrdering Facility: [facility] Address: [address] [place], [place] [address] Performed By: #### 5 7021-8 ####[facility] [id number] [place] [address] [place] CNNURSEon 08-19-2021 CNNURSE Normal [facility] CNOVon 08-19-2021 CNOV Normal [facility] CNOVSPon 08-19-2021 CNOVSP Normal [facility] Comprehensive metabolic 2000 panelon 08-19-2021 Albumin [Mass/Vol] 4.6 g/dL Normal 3.9-4.9 [facility] Comment on above: Order Comment: Speci men Type: BLOOD SPECIMENOrdering Facility: [facility] Address: [address] [place] [address] Performed By: #### 2 4323-8, 3083-03, ####[facility] [id number] [place] [address] [place] ALP [Catalytic activity/Vol] 84 U/L Normal 38-113 [facility] Comment on above: Order Comment: Speci men Type: BLOOD SPECIMENOrdering Facility: [facility] Address: [address] [place] [address] Performed By: #### 2 4323-8, 3083-03, ####[facility] [id number] [place] [address] [place] ALT [Catalytic activity/Vol] 59 U/L High 10-54 [facility] Comment on above: Order Comment: Speci men Type: BLOOD SPECIMENOrdering Facility: [facility] Address: [address] [place], [place] [address] Performed By: #### 2 4323-8, 3083-03, ####[facility] [id number] [place] [address] [place] Anion gap [Moles/Vol] 12 mmol/L Normal 9-18 [facility] Comment on above: Order Comment: Speci men Type: BLOOD SPECIMENOrdering Facility: [facility] Address: [address] [place], [place] [address] Performed By: #### 2 4323-8, 3083-, ####[facility] [id number] [place] [address] [place] AST [Catalytic activity/Vol] 45 U/L High 14-40 [facility] Comment on above: Order Comment: Speci men Type: BLOOD SPECIMENOrdering Facility: [facility] Address: [address] [place], [place] [address] Performed By: #### 2 4323-8, 3083-1, ####[facility] [id number] [place] [address] [place] Bilirubin [Mass/Vol] 0.3 mg/dL Normal 0.2-1.3 [facility] Comment on above: Order Comment: Speci men Type: BLOOD SPECIMENOrdering Facility: [facility] Address: [address] [place], [place] [address] Performed By: #### 2 4323-8, 3083-03, ####[facility] [id number] [place] [address] [place] Calcium [Mass/Vol] 9.7 mg/dL Normal 8.5-10.2 [facility] Comment on above: Order Comment: Speci men Type: BLOOD SPECIMENOrdering Facility: [facility] Address: [address] [place], [place] [address] Performed By: #### 2 4323-8, 3083-03, ####[facility] [id number] [place] [address] [place] Chloride [Moles/Vol] 102 mmol/L Normal 97-105 [facility] Comment on above: Order Comment: Speci men Type: BLOOD SPECIMENOrdering Facility: [facility] Address: [address] [place], [place] [address] Performed By: #### 2 4323-8, 3083-03, ####[facility] [id number] [place] [address] [place] CO2 [Moles/Vol] 26 mmol/L Normal 22-30 [facility] Comment on above: Order Comment: Speci men Type: BLOOD SPECIMENOrdering Facility: [facility] Address: [address] [place], [place] [address] Performed By: #### 2 4323-8, 30806-06, ####[facility] [id number] [place] [address] [place] Creatinine [Mass/Vol] 1.26 mg/dL High 0.73-1.22 [facility] Comment on above: Order Comment: Speci men Type: BLOOD SPECIMENOrdering Facility: [facility] Address: [address] [place], [place] [address] Performed By: #### 2 4323-8, 3083-03, ####[facility] [id number] [address] [place] ESTIMATED GLOMERULAR FILTRATION RATE 67 mL/min/1.73m??? Normal >=60 [facility] Comment on above: Order Comment: Speci men Type: BLOOD SPECIMENOrdering Facility: [facility] Address: [address] [place], [place] [address] Result Comment: Laurita mated Glomerular Filtration Rate [...] #### 2 4323-8, 3083-03, ####[facility] [id number] [place] [address] [place] Glucose [Mass/Vol] 108 mg/dL High 74-99 [facility] Comment on above: Order Comment: Speci men Type: BLOOD SPECIMENOrdering Facility: [facility] Address: [address] [place], [place] [address] Result Comment: The [place] [employer] (ADA) provides guidance for cutoff [...] Standards of Medical Care in Diabetes 2016, [place] [employer]. Diabetes Care. 2016.39(Suppl 1). Performed By: #### 2 4323-8, 3084-1, ####[facility] [id number] [place] [address] [place] Potassium [Moles/Vol] 4.1 mmol/L Normal 3.7-5.1 [facility] Comment on above: Order Comment: Speci men Type: BLOOD SPECIMENOrdering Facility: [facility] Address: [address] [place], [place] [address] Performed By: #### 2 4323-8, 3084-1, ####[facility] [id number] [place] [address] [place] Protein [Mass/Vol] 7.4 g/dL Normal 6.3-8.0 [facility] Comment on above: Order Comment: Speci men Type: BLOOD SPECIMENOrdering Facility: [facility] Address: [address] [place], [place] [address] Performed By: #### 2 4323-8, 3084-1, 75713-2 ####[facility] [id number] [place] [address] [place] Sodium [Moles/Vol] 140 mmol/L Normal 136-144 [facility] Comment on above: Order Comment: Speci men Type: BLOOD SPECIMENOrdering Facility: [facility] Address: [address] [place], [place] [address] Performed By: #### 2 4323-8, 3084-1, ####[facility] [id number] [place] [address] [place] Urea nitrogen [Mass/Vol] 17 mg/dL Normal 9-24 [facility] Comment on above: Order Comment: Speci men Type: BLOOD SPECIMENOrdering Facility: [facility] Address: [address] [place] [address] Performed By: #### 2 4323-8, 3084-1, ####[facility] [id number] [place] [address] [place] LDH SerPl-cCncon 08-19-2021 LDH [Catalytic activity/Vol] 334 U/L High 135-225 [facility] Comment on above: Order Comment: Speci men Type: BLOOD SPECIMENOrdering Facility: [facility] Address: [address] [place], [place] [address] Performed By: #### 2 532-0 ####[facility] [id number] [place] [address] [place] Magnesium SerPl-mCncon 08-19 Magnesium [Mass/Vol] 2.3 mg/dL Normal 1.7-2.3 [facility] Comment on above: Order Comment: Speci men Type: BLOOD SPECIMENOrdering Facility: [facility] Address: [address] [place], [place] [address] Performed By: #### 2 4323-8, 3084-1, 95292-5 ####[facility] [id number] [place] [address] [place] PT panel Coag (PPP)on 2021 INR Coag (PPP) [Relative time] 1.0 {INR} Normal 0.9-1.3 [facility] Comment on above: Order Comment: Speci men Type: BLOOD SPECIMENOrdering Facility: [facility] Address: [address] [place], [place] [address] Result Comment: Constanza min K Antagonist (VKA) Therapeutic Range: INR 2 to 3 (Target INR of 2.5)Note: For patients treated with VKA drugs, such as warfarin, the [place] [employer] 2012 Guideline recommends [...] al. Chest 2012, 141:7S-47SCaitie RA, et al. [facility] 2017, 70: 252-289 Performed By: #### 3 4528-0, 97321-6 ####[facility] [id number] [place] [id number] [place] PT Coag (PPP) [Time] 10.9 s Normal 9.7-13.0 [facility] Comment on above: Order Comment: Aaliyah gibson Type: BLOOD SPECIMENOrdering Facility: [facility] Address: [address] [place] [address] Performed By: #### 3 4528-0, 96391-8 ####[facility] [id number] [place] [address] [place] Phosphate SerPl-mCncon 08-19 Phosphate [Mass/Vol] 4.2 mg/dL Normal 2.7-4.8 [facility] Comment on above: Order Comment: Speci men Type: BLOOD SPECIMENOrdering Facility: [facility] Address: [address] [place] [address] Performed By: #### 2 777-1 ####[facility] [id number] [place] [address] [place] Urate SerPl-nc Urate [Mass/Vol] 7.4 mg/dL Normal 4.0-8.1 [facility] Comment on above: Order Comment: Speci men Type: BLOOD SPECIMENOrdering Facility: [facility] Address: [address] [place] [address] Performed By: #### 2 4323-8, 3084-1, 86440-3 ####[facility] [id number] [address] [place] aPTT PPPon 08-19-2021 aPTT Coag (PPP) [Time] 28.3 s Normal 23.0-32.4 [facility] Comment on above: Order Comment: Speci men Type: BLOOD SPECIMENOrdering Facility: [facility] Address: [address] [place] [address] Performed By: #### 3 4528-0, 95657-3 ####[facility] [id number] [place] [address] [place] CNPNon 08-18-2021 CNPN Normal [facility] CBC W Auto Differential pane l (Bld)on 08-17-2021 Basophils (Bld) [#/Vol] 0.04 10*3/uL Normal <0.11 [facility] Comment on above: Order Comment: Speci men Type: BLOOD SPECIMENOrdering Facility: [facility] Address: [address] [place], [place] [address] Performed By: #### 5 7021-8 ####[facility] [id number] [address] [place] Basophils/100 WBC (Bld) 0.5 % Normal [facility] Comment on above: Order Comment: Speci men Type: BLOOD SPECIMENOrdering Facility: [facility] Address: [address] [place], [place] [address] Performed By: #### 5 7021-8 ####[facility] [id number] [place] [address] [place] Differential cell count method Nom (Bld) Auto Normal [facility] Comment on above: Order Comment: Speci men Type: BLOOD SPECIMENOrdering Facility: [facility] Address: [address] [place], [place] [address] Performed By: #### 5 7021-8 ####[facility] [id number] [place] [address] [place] Eosinophils (Bld) [#/Vol] 0.18 10*3/uL Normal <0.46 [facility] Comment on above: Order Comment: Speci men Type: BLOOD SPECIMENOrdering Facility: [facility] Address: [address] [place], [place] [address] Performed By: #### 5 7021-8 ####[facility] [id number] [address] [place] Eosinophils/100 WBC (Bld) 2.4 % Normal [facility] Comment on above: Order Comment: Speci men Type: BLOOD SPECIMENOrdering Facility: [facility] Address: [address] [place], [place] [address] Performed By: #### 5 7021-8 ####[facility] [id number] [address] STATES OF [facility] Erythrocyte distribution width (RBC) [Ratio] 14.6 % Normal 11.5-15.0 [facility] Comment on above: Order Comment: Speci men Type: BLOOD SPECIMENOrdering Facility: [facility] Address: [address] [place] [address] Performed By: #### 5 7021-8 ####[facility] [id number] [address] STATES OF [facility] Hematocrit (Bld) [Volume fraction] 47.4 % Normal 39.0-51.0 [facility] Comment on above: Order Comment: Speci men Type: BLOOD SPECIMENOrdering Facility: [facility] Address: [address] [place] [address] Performed By: #### 5 7021-8 ####[facility] [id number] [address] STATES OF [facility] Hemoglobin (Bld) [Mass/Vol] 16.4 g/dL Normal 13.0-17.0 [facility] Comment on above: Order Comment: Speci men Type: BLOOD SPECIMENOrdering Facility: [facility] Address: [address] [place] [address] Performed By: #### 5 7021-8 ####[facility] [id number] [address] [place] IMMATURE GRAN % 0.3 % Normal [facility] Comment on above: Order Comment: Speci men Type: BLOOD SPECIMENOrdering Facility: [facility] Address: [address] [place], [place] [address] Performed By: #### 5 7021-8 ####[facility] [id number] [address] [place] IMMATURE GRAN ABS <0.03 Normal <0.10 [facility] Comment on above: Order Comment: Speci men Type: BLOOD SPECIMENOrdering Facility: [facility] Address: [address] [place], [place] [address] Performed By: #### 5 7021-8 ####[facility] [id number] [address] Lymphocytes (Bld) [#/Vol] 1.36 10*3/uL Normal 1.00-4.00 [facility] Comment on above: Order Comment: Speci men Type: BLOOD SPECIMENOrdering Facility: [facility] Address: [address] [place], [place] [address] Performed By: #### 5 7021-8 ####[facility] [id number] [address] [place] Lymphocytes/100 WBC (Bld) 18.4 % Normal [facility] Comment on above: Order Comment: Speci men Type: BLOOD SPECIMENOrdering Facility: [facility] Address: [address] [place], [place] [address] Performed By: #### 5 7021-8 ####[facility] [id number] [address] [place] MCH (RBC) [Entitic mass] 29.8 pg Normal 26.0-34.0 [facility] Comment on above: Order Comment: Speci men Type: BLOOD SPECIMENOrdering Facility: [facility] Address: [address] [place] [address] Performed By: #### 5 7021-8 ####[facility] [id number] [place] [address] [place] MCHC (RBC) [Mass/Vol] 34.6 g/dL Normal 30.5-36.0 [facility] Comment on above: Order Comment: Speci men Type: BLOOD SPECIMENOrdering Facility: [facility] Address: [address] [place] [address] Performed By: #### 5 7021-8 ####[facility] [id number] [place] [address] [place] MCV (RBC) [Entitic vol] 86.0 fL Normal 80.0-100.0 [facility] Comment on above: Order Comment: Speci men Type: BLOOD SPECIMENOrdering Facility: [facility] Address: [address] [place] [address] Performed By: #### 5 7021-8 ####[facility] [id number] [place] [address] [place] Monocytes (Bld) [#/Vol] 0.42 10*3/uL Normal <0.87 [facility] Comment on above: Order Comment: Speci men Type: BLOOD SPECIMENOrdering Facility: [facility] Address: [address] [place] [address] Performed By: #### 5 7021-8 ####[facility] [id number] [place] [address] [place] Monocytes/100 WBC (Bld) 5.7 % Normal [facility] Comment on above: Order Comment: Speci men Type: BLOOD SPECIMENOrdering Facility: [facility] Address: [address] [place], [place] [address] Performed By: #### 5 7021-8 ####[facility] [id number] [place] [address] [place] Neutrophils (Bld) [#/Vol] 5.37 10*3/uL Normal 1.45-7.50 [facility] Comment on above: Order Comment: Speci men Type: BLOOD SPECIMENOrdering Facility: [facility] Address: [address] [place], [place] [address] Performed By: #### 5 7021-8 ####[facility] [id number] [place] [address] [place] Neutrophils/100 WBC (Bld) 72.7 % Normal [facility] Comment on above: Order Comment: Speci men Type: BLOOD SPECIMENOrdering Facility: [facility] Address: [address] [place], [place] [address] Performed By: #### 5 7021-8 ####[facility] [id number] [place] [address] [place] Nucleated RBC (Bld) [#/Vol] 10*3/uL Normal <0.01 [facility] Comment on above: Order Comment: Speci men Type: BLOOD SPECIMENOrdering Facility: [facility] Address: [address] [place], [place] [address] Performed By: #### 5 7021-8 ####[facility] [id number] [place] [address] [place] Nucleated RBC/100 WBC (Bld) [Ratio] 0.0 /100 WBC Normal [facility] Comment on above: Order Comment: Speci men Type: BLOOD SPECIMENOrdering Facility: [facility] Address: [address] [place], [place] [id number] Performed By: #### 5 7021-8 ####[facility] [id number] [place] [address] [place] Platelet mean volume (Bld) [Entitic vol] 10.0 fL Normal 9.0-12.7 [facility] Comment on above: Order Comment: Speci men Type: BLOOD SPECIMENOrdering Facility: [facility] Address: [address] [place] [address] Performed By: #### 5 7021-8 ####[facility] [id number] [place] [address] [place] Platelets (Bld) [#/Vol] 288 10*3/uL Normal 150-400 [facility] Comment on above: Order Comment: Speci men Type: BLOOD SPECIMENOrdering Facility: [facility] Address: [address] [place], [place] [address] Performed By: #### 5 7021-8 ####[facility] LABCLIA [id number] [place] [address] [place] RBC (Bld) [#/Vol] 5.51 10*6/uL Normal 4.20-6.00 [facility] Comment on above: Order Comment: Speci men Type: BLOOD SPECIMENOrdering Facility: [facility] Address: [address] [place], [place] [address] Performed By: #### 5 7021-8 ####[facility] LABIA [id number] [place] [address] [place] WBC (Bld) [#/Vol] 7.39 10*3/uL Normal 3.70-11.00 [facility] Comment on above: Order Comment: Speci men Type: BLOOD SPECIMENOrdering Facility: [facility] Address: [address] [place], [place] [address] Performed By: #### 5 7021-8 ####[facility] LABIA [id number] [place] [address] [place] [address] ABD/PEL WO IVCONon 2021 CT ABD/PEL WO IVCON Normal [facility] CT CHEST W IVCON PEon 2021 CT CHEST W IVCON PE Normal [facility] Comprehensive metabolic 2000 panelon 08-17-2021 Albumin [Mass/Vol] 4.4 g/dL Normal 3.9-4.9 [facility] Comment on above: Order Comment: Speci men Type: BLOOD SPECIMENOrdering Facility: [facility] Address: [address] [place], [place] [address] Performed By: #### 3 040-3, 78810-8, 52820-7, 39057-7, BEAU ####[facility] LABCLIA [id number] [address] [address] [place] ALP [Catalytic activity/Vol] 74 U/L Normal 38-113 [facility] Comment on above: Order Comment: Speci men Type: BLOOD SPECIMENOrdering Facility: [facility] Address: [address] [place] [address] Performed By: #### 3 040-3, 16507-7, 09509-2, 98479-4, BEAU ####[facility] LABCLIA [id number] [address] [place] ALT [Catalytic activity/Vol] 44 U/L Normal 10-54 [facility] Comment on above: Order Comment: Speci men Type: BLOOD SPECIMENOrdering Facility: [facility] Address: [address] [place] [address] Performed By: #### 3 040-3, 96784-8, 87428-1, 68971-5, BEAU ####[facility] LABIA [id number] [address] [place] Anion gap [Moles/Vol] 12 mmol/L Normal 9-18 [facility] Comment on above: Order Comment: Speci men Type: BLOOD SPECIMENOrdering Facility: [facility] Address: [address] [place] [address] Performed By: #### 3 040-3, 40415-0, 23515-9, 06531-8, BEAU ####[facility] LABIA [id number] [address] STATES OF [facility] AST [Catalytic activity/Vol] 27 U/L Normal 14-40 [facility] Comment on above: Order Comment: Speci men Type: BLOOD SPECIMENOrdering Facility: [facility] Address: [address] [place] [address] Performed By: #### 3 040-3, 55060-1, 87416-6, 70458-5, BEAU ####[facility] LABCLIA [id number] [place] [address] [place] Bilirubin [Mass/Vol] 0.7 mg/dL Normal 0.2-1.3 [facility] Comment on above: Order Comment: Speci men Type: BLOOD SPECIMENOrdering Facility: [facility] Address: [address] [place] [address] Performed By: #### 3 040-3, 68734-1, 79931-8, 94889-3, BEAU ####[facility] LABCLIA [id number] [place] [address] [place] Calcium [Mass/Vol] 10.3 mg/dL High 8.5-10.2 [facility] Comment on above: Order Comment: Speci men Type: BLOOD SPECIMENOrdering Facility: [facility] Address: [address] [place] [address] Performed By: #### 3 040-3, 36012-5, 02635-7, 41126-7, BEAU ####[facility] LABCLIA [id number] [address] [place] Chloride [Moles/Vol] 99 mmol/L Normal 97-105 [facility] Comment on above: Order Comment: Speci men Type: BLOOD SPECIMENOrdering Facility: [facility] Address: [address] [place] [address] Performed By: #### 3 040-3, 77528-1, 25090-9, 67168-2, BEAU ####[facility] LABCLIA [id number] [place] [address] [place] CO2 [Moles/Vol] 26 mmol/L Normal 22-30 [facility] Comment on above: Order Comment: Speci men Type: BLOOD SPECIMENOrdering Facility: [facility] Address: [address] [place] [address] Performed By: #### 3 040-3, 03765-7, 74141-5, 06890-3, BEAU ####[facility] LABCLIA [id number] [address] STATES OF [facility] Creatinine [Mass/Vol] 1.21 mg/dL Normal 0.73-1.22 [facility] Comment on above: Order Comment: Aaliyah gibson Type: BLOOD SPECIMENOrdering Facility: [facility] Address: [address] [place] [id number] Performed By: #### 3 040-3, 01460-5, 09632-2, 75720-5, BEAU ####[facility] LABCLIA [id number] [address] STATES OF [facility] ESTIMATED GLOMERULAR FILTRATION RATE 70 mL/min/1.73m??? Normal >=60 [facility] Comment on above: Order Comment: Aaliyah gibson Type: BLOOD SPECIMENOrdering Facility: [facility] Address: [address] [place] [address] Result Comment: Laurita mated Glomerular Filtration Rate [...] actual GFR. Performed By: #### 3 040-3, 05050-3, 26815-6, 61972-5, BEAU ####[facility] LABCLIA [id number] [place] [address] [place] Glucose [Mass/Vol] 118 mg/dL High 74-99 [facility] Comment on above: Order Comment: Aaliyah gibson Type: BLOOD SPECIMENOrdering Facility: [facility] Address: [address] [place] [address] Result Comment: The [place] Diabetes Association (ADA) provides guidance for cutoff [...] Standards of Medical Care in Diabetes 2016, [place] [employer]. Diabetes Care. 2016.39(Suppl 1). Performed By: #### 3 040-3, 77171-2, 81276-5, 12910-4, BEAU ####[facility] LABCLIA [id number] [place] [address] [place] Potassium [Moles/Vol] 4.1 mmol/L Normal 3.7-5.1 [facility] Comment on above: Order Comment: Aaliyah gibson Type: BLOOD SPECIMENOrdering Facility: [facility] Address: [address] [place] [address] Performed By: #### 3 040-3, 10222-1, , , BEAU ####[facility] LABCLIA [id number] [place] [address] [place] Protein [Mass/Vol] 7.8 g/dL Normal 6.3-8.0 [facility] Comment on above: Order Comment: Aaliyah gibson Type: BLOOD SPECIMENOrdering Facility: [facility] Address: [address] [place] [address] Performed By: #### 3 040-3, 02871-8, , , BEAU ####[facility] LABCLIA [id number] [place] [address] [place] Sodium [Moles/Vol] 137 mmol/L Normal 136-144 [facility] Comment on above: Order Comment: Aaliyah gibson Type: BLOOD SPECIMENOrdering Facility: [facility] Address: [address] [place] [address] Performed By: #### 3 040-3, 13325-3, , , BEAU ####[facility] LABCLIA [id number] [place] [address] [place] Urea nitrogen [Mass/Vol] 13 mg/dL Normal 9-24 [facility] Comment on above: Order Comment: Speci men Type: BLOOD SPECIMENOrdering Facility: [facility] Address: [address] [place] [address] Performed By: #### 3 040-3, 21437-5, 51289-7, 32992-5, BEAU ####[facility] LABCLIA [id number] [place] [address] [place] D dimer FEU PPP-mCncon 08-17 Fibrin D-dimer FEU (PPP) [Mass/Vol] 1060 ng/mL FEU High <500 [facility] Comment on above: Order Comment: Speci men Type: BLOOD SPECIMENOrdering Facility: [facility] Address: [address] [place] [address] Performed By: #### 4 8065-7 ####[facility] LABIA [id number] [place] [address] [place] ED NOTEon 08-17-2021 ED NOTE Normal [facility] ED PROV NOTEon 08-17-2021 ED PROV NOTE Normal [facility] ED PROV NOTE Normal [facility] Fibrin D-dimer FEU (PPP) [Ma ss/Vol]on 08-17-2021 D DIMER AGE-RELATED CUTOFF 570 ng/mL FEU Normal [facility] Comment on above: Order Comment: Speci men Type: BLOOD SPECIMENOrdering Facility: [facility] Address: [address] [place], [place] [address] Performed By: #### 4 8065-7 ####[facility] LABIA [id number] [place] [id number] [place] Lipase SerPl-cCncon 08-18-19 22 Lipase [Catalytic activity/Vol] 22 U/L Normal 16-61 [facility] Comment on above: Order Comment: Speci men Type: BLOOD SPECIMENOrdering Facility: [facility] Address: [address] [place] [address] Performed By: #### 3 040-3, 59661-4, 97693-6, 49385-2, BEAU ####[facility] LABCLIA [id number] [place] [address] [place] Magnesium SerPl-ncon 08-17 Magnesium [Mass/Vol] 2.0 mg/dL Normal 1.7-2.3 [facility] Comment on above: Order Comment: Speci men Type: BLOOD SPECIMENOrdering Facility: [facility] Address: [address] [place] [address] Performed By: #### 3 040-3, 95708-6, , , BEAU ####[facility] LABIA [id number] [place] [address] [place] [facility] Natriuretic peptide.B prohormone N-Terminal [Mass/Vol] 1881 pg/mL High <125 [facility] Comment on above: Order Comment: Speci men Type: BLOOD SPECIMENOrdering Facility: [facility] Address: [address] [place] [address] Performed By: #### 3 040-3, 84227-6, , , BEAU ####[facility] LABIA [id number] [address] [place] TROPONIN Ton 08-17-2021 Troponin T.cardiac [Mass/Vol] 0.022 ug/L Normal 0.000-0.02 9 [facility] Comment on above: Order Comment: Speci men Type: BLOOD SPECIMENOrdering Facility: [facility] Address: [address] [place] [address] Performed By: #### 3 040-3, 41788-1, , 52785-8, BEAU ####[facility] LABCLIA [id number] [place] [address] [place] Urinalysis complete panel (U )on 08-17-2021 Bilirubin Ql (U) Negative Normal Negative [facility] Comment on above: Order Comment: Speci men Type: URINE SPECIMENOrdering Facility: [facility] Address: [address] [place] [address] Performed By: #### 2 4356-8 ####[facility] LABCLIA [id number] [place] [address] [place] Clarity (Unsp spec) Clear Normal Clear [facility] Comment on above: Order Comment: Speci men Type: URINE SPECIMENOrdering Facility: [facility] Address: [address] [place] [address] Performed By: #### 2 4356-8 ####[facility] LABIA [id number] [place] [address] [place] [facility] Color (U) Yellow Normal Yellow [facility] Comment on above: Order Comment: Speci men Type: URINE SPECIMENOrdering Facility: [facility] Address: [address] [place] [address] Performed By: #### 2 4356-8 ####[facility] LABIA [id number] [place] [address] [place] Epithelial cells LM.HPF (Urine sed) [#/Area] Few Normal [facility] Comment on above: Order Comment: Speci men Type: URINE SPECIMENOrdering Facility: [facility] Address: [address] [place], [place] [address] Performed By: #### 2 4356-8 ####[facility] LABIA [id number] [place] [address] [place] Glucose Test strip (U) [Mass/Vol] Negative Normal Negative [facility] Comment on above: Order Comment: Speci men Type: URINE SPECIMENOrdering Facility: [facility] Address: [address] [place], [place] [address] Performed By: #### 2 4356-8 ####[facility] LABCLIA [id number] [place] [address] [place] Hemoglobin Ql (U) Negative Normal Negative [facility] Comment on above: Order Comment: Speci men Type: URINE SPECIMENOrdering Facility: [facility] Address: [address] [place], [place] [address] Performed By: #### 2 4356-8 ####[facility] LABCLIA [id number] [place] [address] [place] Hyaline casts (Urine sed) [#/Area] 1-3 /LPF Abnormal 0 /LPF [facility] Comment on above: Order Comment: Speci men Type: URINE SPECIMENOrdering Facility: [facility] Address: [address] [place], [place] [address] Performed By: #### 2 4356-8 ####[facility] LABCLIA [id number] [address] [place] Ketones Ql (U) Negative Normal Negative [facility] Comment on above: Order Comment: Speci men Type: URINE SPECIMENOrdering Facility: [facility] Address: [address] [place], [place] [address] Performed By: #### 2 4356-8 ####[facility] LABCLIA [id number] [place] [address] [place] Leukocyte esterase Test strip Ql (U) Negative Normal Negative [facility] Comment on above: Order Comment: Speci men Type: URINE SPECIMENOrdering Facility: [facility] Address: [address] [place], [place] [address] Performed By: #### 2 4356-8 ####[facility] LABCLIA [id number] [address] [place] Nitrite Ql (U) Negative Normal Negative [facility] Comment on above: Order Comment: Speci men Type: URINE SPECIMENOrdering Facility: [facility] Address: [address] [place] [address] Performed By: #### 2 4356-8 ####[facility] LABIA [id number] [place] [address] [place] pH (U) 7.0 [pH] Normal 5.0-8.0 [facility] Comment on above: Order Comment: Speci men Type: URINE SPECIMENOrdering Facility: [facility] Address: [address] [place] [address] Performed By: #### 2 4356-8 ####[facility] LABIA [id number] [place] [address] [place] Protein (U) [Mass/Vol] Negative Normal Negative [facility] Comment on above: Order Comment: Speci men Type: URINE SPECIMENOrdering Facility: [facility] Address: [address] [place] [address] Performed By: #### 2 4356-8 ####[facility] LABIA [id number] [place] [address] [place] RBC LM.HPF (Urine sed) [#/Area] 0-3 /HPF Normal 0-3 /HPF [facility] Comment on above: Order Comment: Speci men Type: URINE SPECIMENOrdering Facility: [facility] Address: [address] [place] [address] Performed By: #### 2 4356-8 ####[facility] LABIA [id number] [place] [address] [place] Specific gravity (U) [Rel density] 1.016 Normal 1.005-1.03 0 [facility] Comment on above: Order Comment: Speci men Type: URINE SPECIMENOrdering Facility: [facility] Address: [address] [place] [address] Performed By: #### 2 4356-8 ####[facility] LABIA [id number] [place] [address] [place] Urobilinogen Ql (U) Negative Normal Negative [facility] Comment on above: Order Comment: Speci men Type: URINE SPECIMENOrdering Facility: [facility] Address: [address] [place], [place] [address] Performed By: #### 2 4356-8 ####[facility] [id number] [place] [address] [place] WBC LM.HPF (Urine sed) [#/Area] 0-5 /HPF Normal 0-5 /HPF [facility] Comment on above: Order Comment: Speci men Type: URINE SPECIMENOrdering Facility: [facility] Address: [address] [place], [place] [address] Performed By: #### 2 4356-8 ####[facility] [id number] [place] [address] [place] XR CHEST 1V FRONTAL PORTon 0 08-17-2021 XR CHEST 1V FRONTAL PORT Normal [facility] CNPNon 08-13-2021 CNPN Normal [facility] CNPNon 08-12-2021 CNPN Normal [facility] CNPNon 08-11-2021 CNPN Normal [facility] ACTIVATED PTTon 08-08-2021 aPTT Coag (PPP) [Time] 29.9 s 23.0 - 32.4 sec [facility] CBC W Auto Differential pane l (Bld)on 08-08-2021 Basophils (Bld) [#/Vol] 10*3/uL Normal <0.11 C [facility] Comment on above: Order Comment: Speci men Type: BLOOD SPECIMENOrdering Facility: [facility] Address: [address] [place], [place] [address] Performed By: #### 5 7021-8 ####[facility] [id number] [address] [place] Basophils/100 WBC (Bld) 0.3 % Normal [facility] Comment on above: Order Comment: Speci men Type: BLOOD SPECIMENOrdering Facility: [facility] Address: [address] [place] [address] Performed By: #### 5 7021-8 ####[facility] [id number] [place] [address] [place] Differential cell count method Nom (Bld) Auto Normal [facility] Comment on above: Order Comment: Speci men Type: BLOOD SPECIMENOrdering Facility: [facility] Address: [address] [place] [address] Performed By: #### 5 7021-8 ####[facility] [place] [id number] [place] [address] [place] Eosinophils (Bld) [#/Vol] 0.04 10*3/uL Normal <0.46 [facility] Comment on above: Order Comment: Speci men Type: BLOOD SPECIMENOrdering Facility: [facility] Address: [address] [place] [address] Performed By: #### 5 7021-8 ####[facility] [place] [place] [id number] [place] [address] OF [facility] Eosinophils/100 WBC (Bld) 0.7 % Normal [facility] Comment on above: Order Comment: Speci men Type: BLOOD SPECIMENOrdering Facility: [facility] Address: [address] [place] [address] Performed By: #### 5 7021-8 ####[facility] [place] [place] [id number] [place] [address] [place] Erythrocyte distribution width (RBC) [Ratio] 15.6 % High 11.5-15.0 [facility] Comment on above: Order Comment: Speci men Type: BLOOD SPECIMENOrdering Facility: [facility] Address: [address] [place] [address] Performed By: #### 5 7021-8 ####[facility] [place] [id number] [place] [address] Hematocrit (Bld) [Volume fraction] 43.0 % Normal 39.0-51.0 [facility] Comment on above: Order Comment: Speci men Type: BLOOD SPECIMENOrdering Facility: [facility] Address: [address] [place] [address] Performed By: #### 5 7021-8 ####[facility] [place] [id number] [place] [address] Hemoglobin (Bld) [Mass/Vol] 14.6 g/dL Normal 13.0-17.0 [facility] Comment on above: Order Comment: Speci men Type: BLOOD SPECIMENOrdering Facility: [facility] Address: [address] [place] [address] Performed By: #### 5 7021-8 ####[facility] [id number] [place] [address] IMMATURE GRAN % 0.3 % Normal [facility] Comment on above: Order Comment: Speci men Type: BLOOD SPECIMENOrdering Facility: [facility] Address: [address] [place], [place] [address] Performed By: #### 5 7021-8 ####[facility] [id number] [place] [address] IMMATURE GRAN ABS <0.03 Normal <0.10 [facility] Comment on above: Order Comment: Speci men Type: BLOOD SPECIMENOrdering Facility: [facility] Address: [address] [place], [place] [address] Performed By: #### 5 7021-8 ####[facility] [id number] [place] [address] [place] Lymphocytes (Bld) [#/Vol] 1.61 10*3/uL Normal 1.00-4.00 [facility] Comment on above: Order Comment: Speci men Type: BLOOD SPECIMENOrdering Facility: [facility] Address: [address] [place] [address] Performed By: #### 5 7021-8 ####[facility] [place] [id number] [place] [address] Lymphocytes/100 WBC (Bld) 26.6 % Normal [facility] Comment on above: Order Comment: Speci men Type: BLOOD SPECIMENOrdering Facility: [facility] Address: [address] [place] [address] Performed By: #### 5 7021-8 ####[facility] [place] [id number] [place] [address] MCH (RBC) [Entitic mass] 29.9 pg Normal 26.0-34.0 [facility] Comment on above: Order Comment: Speci men Type: BLOOD SPECIMENOrdering Facility: [facility] Address: [address] [place] [address] Performed By: #### 5 7021-8 ####[facility] [id number] [place] [address] [place] [facility] MCHC (RBC) [Mass/Vol] 34.0 g/dL Normal 30.5-36.0 [facility] Comment on above: Order Comment: Speci men Type: BLOOD SPECIMENOrdering Facility: [facility] Address: [address] [place] [address] Performed By: #### 5 7021-8 ####[facility] [id number] [place] [address] MCV (RBC) [Entitic vol] 87.9 fL Normal 80.0-100.0 [facility] Comment on above: Order Comment: Speci men Type: BLOOD SPECIMENOrdering Facility: [facility] Address: [address] [place], [place] [address] Performed By: #### 5 7021-8 ####[facility] [id number] [place] [address] [place] Monocytes (Bld) [#/Vol] 0.40 10*3/uL Normal <0.87 [facility] Comment on above: Order Comment: Speci men Type: BLOOD SPECIMENOrdering Facility: [facility] Address: [address] [place], [place] [address] Performed By: #### 5 7021-8 ####[facility] [id number] [place] [address] [place] Monocytes/100 WBC (Bld) 6.6 % Normal C [facility] Comment on above: Order Comment: Speci men Type: BLOOD SPECIMENOrdering Facility: [facility] Address: [address] [place], [place] [address] Performed By: #### 5 7021-8 ####[facility] [place] [id number] [place] [address] [place] Neutrophils (Bld) [#/Vol] 3.97 10*3/uL Normal 1.45-7.50 [facility] Comment on above: Order Comment: Speci men Type: BLOOD SPECIMENOrdering Facility: [facility] Address: [address] [place], [place] [address] Performed By: #### 5 7021-8 ####[facility] [id number] [place] [address] [place] Neutrophils/100 WBC (Bld) 65.5 % Normal [facility] Comment on above: Order Comment: Speci men Type: BLOOD SPECIMENOrdering Facility: [facility] Address: [address] [place], [place] [address] Performed By: #### 5 7021-8 ####[facility] [id number] [place] [address] [place] Nucleated RBC (Bld) [#/Vol] 10*3/uL Normal <0.01 [facility] Comment on above: Order Comment: Speci men Type: BLOOD SPECIMENOrdering Facility: [facility] Address: [address] [place] [address] Performed By: #### 5 7021-8 ####[facility] [id number] [place] [address] [place] Nucleated RBC/100 WBC (Bld) [Ratio] 0.0 /100 WBC Normal [facility] Comment on above: Order Comment: Speci men Type: BLOOD SPECIMENOrdering Facility: [facility] Address: [address] [place], [place] [id number] Performed By: #### 5 7021-8 ####[facility] [id number] [place] [address] [place] Platelet mean volume (Bld) [Entitic vol] 10.1 fL Normal 9.0-12.7 [facility] Comment on above: Order Comment: Speci men Type: BLOOD SPECIMENOrdering Facility: [facility] Address: [address] [place] [address] Performed By: #### 5 7021-8 ####[facility] [id number] [place] [address] [place] Platelets (Bld) [#/Vol] 263 10*3/uL Normal 150-400 [facility] Comment on above: Order Comment: Speci men Type: BLOOD SPECIMENOrdering Facility: [facility] Address: [address] [place] [address] Performed By: #### 5 7021-8 ####[facility] [id number] [place] [address] [place] RBC (Bld) [#/Vol] 4.89 10*6/uL Normal 4.20-6.00 [facility] Comment on above: Order Comment: Speci men Type: BLOOD SPECIMENOrdering Facility: [facility] Address: [address] [place] [address] Performed By: #### 5 7021-8 ####[facility] [id number] [address] WBC (Bld) [#/Vol] 6.06 10*3/uL Normal 3.70-11.00 [facility] Comment on above: Order Comment: Speci men Type: BLOOD SPECIMENOrdering Facility: [facility] Address: [address] [place] [address] Performed By: #### 5 7021-8 ####[facility] [id number] [address] STATES OF [facility] Abs Immature Gran <0.03 <0.10 k/uL [facility] Basophils (Bld) [#/Vol] 10*3/uL <0.11 k/uL C [facility] Basophils/100 WBC (Bld) 0.3 % C [facility] Differential cell count method Nom (Bld) Auto [facility] Eosinophils (Bld) [#/Vol] 0.04 10*3/uL <0.46 k/uL [facility] Eosinophils/100 WBC (Bld) 0.7 % [facility] Erythrocyte distribution width (RBC) [Ratio] 15.6 % High 11.5 - 15.0 % [facility] Hematocrit (Bld) [Volume fraction] 43.0 % 39.0 - 51.0 % [facility] Hemoglobin (Bld) [Mass/Vol] 14.6 g/dL 13.0 - 17.0 g/dL [facility] Immature Gran % 0.3 % [facility] Lymphocytes (Bld) [#/Vol] 1.61 10*3/uL 1.00 - 4.00 k/uL [facility] Lymphocytes/100 WBC (Bld) 26.6 % [facility] MCH (RBC) [Entitic mass] 29.9 pg 26.0 - 34.0 pg [facility] MCHC (RBC) [Mass/Vol] 34.0 g/dL 30.5 - 36.0 g/dL [facility] MCV (RBC) [Entitic vol] 87.9 fL 80.0 - 100.0 fL [facility] Monocytes (Bld) [#/Vol] 0.40 10*3/uL <0.87 k/uL [facility] Monocytes/100 WBC (Bld) 6.6 % [facility] Neutrophils (Bld) [#/Vol] 3.97 10*3/uL 1.45 - 7.50 k/uL [facility] Neutrophils/100 WBC (Bld) 65.5 % [facility] Nucleated RBC (Bld) [#/Vol] 10*3/uL <0.01 k/uL [facility] Nucleated RBC/100 WBC (Bld) [Ratio] 0.0 /100 WBC [facility] Platelet mean volume (Bld) [Entitic vol] 10.1 fL 9.0 - 12.7 fL [facility] Platelets (Bld) [#/Vol] 263 10*3/uL 150 - 400 k/uL [facility] RBC (Bld) [#/Vol] 4.89 10*6/uL 4.20 - 6.00 m/uL [facility] WBC (Bld) [#/Vol] 6.06 10*3/uL 3.70 - 11.00 k/uL [facility] CNNURSEon 08-08-2021 CNNURSE Normal [facility] CNOVSPon 08-08-2021 CNOVSP Normal [facility] CNSWon 08-08-2021 CNSW Normal [facility] Comprehensive metabolic 2000 panelon 08-08-2021 Albumin [Mass/Vol] 4.2 g/dL Normal 3.9-4.9 [facility] Comment on above: Order Comment: Speci men Type: BLOOD SPECIMENOrdering Facility: [facility] Address: [address] [place] [address] Performed By: #### 2 4323-8, 3084-1, 27528-5 ####[facility] [id number] [place] [address] [place] ALP [Catalytic activity/Vol] 56 U/L Normal 38-113 [facility] Comment on above: Order Comment: Speci men Type: BLOOD SPECIMENOrdering Facility: [facility] Address: [address] [place], [place] [address] Performed By: #### 2 4323-8, 3084-1, ####[facility] [id number] [place] [address] [place] ALT [Catalytic activity/Vol] 34 U/L Normal 10-54 [facility] Comment on above: Order Comment: Speci men Type: BLOOD SPECIMENOrdering Facility: [facility] Address: [address] [place] [address] Performed By: #### 2 4323-8, 3083-, ####[facility] [id number] [place] [address] [place] Anion gap [Moles/Vol] 10 mmol/L Normal 9-18 [facility] Comment on above: Order Comment: Speci men Type: BLOOD SPECIMENOrdering Facility: [facility] Address: [address] [place], [place] [address] Performed By: #### 2 4323-8, 308-1, ####[facility] [id number] [place] [address] [place] AST [Catalytic activity/Vol] 18 U/L Normal 14-40 [facility] Comment on above: Order Comment: Speci men Type: BLOOD SPECIMENOrdering Facility: [facility] Address: [address] [place], [place] [address] Performed By: #### 2 4323-8, 3084-1, ####[facility] [id number] [place] [address] [place] Bilirubin [Mass/Vol] 0.5 mg/dL Normal 0.2-1.3 [facility] Comment on above: Order Comment: Speci men Type: BLOOD SPECIMENOrdering Facility: [facility] Address: [address] [place], [place] [address] Performed By: #### 2 4323-8, 3084-1, ####[facility] [id number] [place] [address] [place] Calcium [Mass/Vol] 9.6 mg/dL Normal 8.5-10.2 [facility] Comment on above: Order Comment: Speci men Type: BLOOD SPECIMENOrdering Facility: [facility] Address: [address] [place], [place] [address] Performed By: #### 2 4323-8, 3083-1, ####[facility] [id number] [place] [address] [place] Chloride [Moles/Vol] 103 mmol/L Normal 97-105 [facility] Comment on above: Order Comment: Speci men Type: BLOOD SPECIMENOrdering Facility: [facility] Address: [address] [place], [place] [address] Performed By: #### 2 4323-8, 3083-, ####[facility] [id number] [place] [address] [place] CO2 [Moles/Vol] 26 mmol/L Normal 22-30 [facility] Comment on above: Order Comment: Speci men Type: BLOOD SPECIMENOrdering Facility: [facility] Address: [address] [place] [address] Performed By: #### 2 4323-8, 3083-1, ####[facility] [id number] [place] [id number] [place] Creatinine [Mass/Vol] 1.24 mg/dL High 0.73-1.22 [facility] Comment on above: Order Comment: Aaliyah gibson Type: BLOOD SPECIMENOrdering Facility: [facility] Address: [address] [place], [place] [address] Performed By: #### 2 4323-8, 3084-1, ####[facility] [id number] [address] [place] ESTIMATED GLOMERULAR FILTRATION RATE 68 mL/min/1.73m??? Normal >=60 [facility] Comment on above: Order Comment: Aaliyah gibson Type: BLOOD SPECIMENOrdering Facility: [facility] Address: [address] [place], [place] [address] Result Comment: Laurita mated Glomerular Filtration Rate [...] #### 2 4323-8, 3083-1, ####[facility] [id number] [place] [address] [place] Glucose [Mass/Vol] 119 mg/dL High 74-99 [facility] Comment on above: Order Comment: Aaliyah gibson Type: BLOOD SPECIMENOrdering Facility: [facility] Address: [address] [place], [place] [phone] Result Comment: The [place] [employer] (ADA) provides guidance for cutoff [...] Standards of Medical Care in Diabetes 2016, [place] [employer]. Diabetes Care. 2016.39(Suppl 1). Performed By: #### 2 4323-8, 3083-03, ####[facility] [id number] [place] [address] [place] Potassium [Moles/Vol] 4.2 mmol/L Normal 3.7-5.1 [facility] Comment on above: Order Comment: Speci men Type: BLOOD SPECIMENOrdering Facility: [facility] Address: [address] [place], [place] [phone] Performed By: #### 2 4323-8, 3083-03, ####[facility] [id number] [place] [address] [place] Protein [Mass/Vol] 6.8 g/dL Normal 6.3-8.0 [facility] Comment on above: Order Comment: Speci men Type: BLOOD SPECIMENOrdering Facility: [facility] Address: [address] [place], [place] [phone] Performed By: #### 2 4323-8, 3083-03, ####[facility] [id number] [place] [address] [place] Sodium [Moles/Vol] 139 mmol/L Normal 136-144 [facility] Comment on above: Order Comment: Speci men Type: BLOOD SPECIMENOrdering Facility: [facility] Address: [address] [place] [address] Performed By: #### 2 4323-8, 3083-03, ####[facility] [id number] [place] [id number] [place] Urea nitrogen [Mass/Vol] 15 mg/dL Normal 9-24 [facility] Comment on above: Order Comment: Speci men Type: BLOOD SPECIMENOrdering Facility: [facility] Address: [address] [place], [place] [address] Performed By: #### 2 4323-8, 3084-1, 08771-9 ####[facility] [id number] [facility] [id number] [place], [place] [id number] [place] Albumin [Mass/Vol] 4.2 g/dL 3.9 - 4.9 g/dL [facility] ALP [Catalytic activity/Vol] 56 U/L 38 - 113 U/L [facility] ALT [Catalytic activity/Vol] 34 U/L 10 - 54 U/L [facility] Anion gap [Moles/Vol] 10 mmol/L 9 - 18 mmol/L [facility] AST [Catalytic activity/Vol] 18 U/L 14 - 40 U/L [facility] Bilirubin [Mass/Vol] 0.5 mg/dL 0.2 - 1 .3 mg/dL [facility] Calcium [Mass/Vol] 9.6 mg/dL 8.5 - 10. 2 mg/dL [facility] Chloride [Moles/Vol] 103 mmol/L 97 - 10 5 mmol/L [facility] CO2 [Moles/Vol] 26 mmol/L 22 - 30 mmol/L [facility] Creatinine [Mass/Vol] 1.24 mg/dL High 0.73 - 1.22 mg/dL [facility] Estimated Glomerular Filtration Rate 68 mL/min/1.73m >=60 mL/min/1.7 3m [facility] Glucose [Mass/Vol] 119 mg/dL High 74 - 99 mg/dL [facility] Potassium [Moles/Vol] 4.2 mmol/L 3.7 - 5.1 mmol/L [facility] Protein [Mass/Vol] 6.8 g/dL 6.3 - 8.0 g/dL [facility] Sodium [Moles/Vol] 139 mmol/L 136 - 144 mmol/L [facility] Urea nitrogen [Mass/Vol] 15 mg/dL 9 - 24 mg/dL [facility] LD LACTATE DEHYDROon 022 LDH [Catalytic activity/Vol] 232 U/L High 135 - 225 U/L [facility] LDH SerPl-cCncon 08-08-2021 LDH [Catalytic activity/Vol] 232 U/L High 135-225 [facility] Comment on above: Order Comment: Aaliyah gibson Type: BLOOD SPECIMENOrdering Facility: [facility] Address: [address] [place] [address] Performed By: #### 2 532-0 ####[facility] [id number] [place] [address] [place] MAGNESIUM BLDon 08-08-2021 Magnesium [Mass/Vol] 2.1 mg/dL 1.7 - 2 .3 mg/dL [facility] Magnesium SerPl-mCncon 08-08 Magnesium [Mass/Vol] 2.1 mg/dL Normal 1.7-2.3 [facility] Comment on above: Order Comment: Aaliyah gibson Type: BLOOD SPECIMENOrdering Facility: [facility] Address: [address] [place] [address] Performed By: #### 2 4323-8, 3084-1, 06415-2 ####[facility] [id number] [place] [address] [place] PHOSPHORUS INORGANICon 08-08 Phosphate [Mass/Vol] 4.1 mg/dL 2.7 - 4 .8 mg/dL [facility] PT panel Coag (PPP)on 2021 INR Coag (PPP) [Relative time] 1.0 {INR} Normal 0.9-1.3 [facility] Comment on above: Order Comment: Aaliyah gibson Type: BLOOD SPECIMENOrdering Facility: [facility] Address: [address] [place] [address] Result Comment: Constanza min K Antagonist (VKA) Therapeutic Range: INR 2 to 3 (Target INR of 2.5)Note: For patients treated with VKA drugs, such as warfarin, the [place] [employer] 2012 Guideline recommends [...] al. Chest 2012, 141:7S-47SCaitie RA, et al. [facility] 2017, 70: 252-289 Performed By: #### 3 4528-0, 28621-8 ####[facility] [id number] [address] [place] PT Coag (PPP) [Time] 10.7 s Normal 9.7-13.0 [facility] Comment on above: Order Comment: Speci men Type: BLOOD SPECIMENOrdering Facility: [facility] Address: [address] [place] [address] Performed By: #### 3 4528-0, 10908-8 ####[facility] [id number] [address] [place] INR Coag (PPP) [Relative time] 1.0 {INR} 0.9 - 1.3 [facility] PT Coag (PPP) [Time] 10.7 s 9.7 - 1 3.0 sec [facility] Phosphate [facility] 08-08 Phosphate [Mass/Vol] 4.1 mg/dL Normal 2.7-4.8 [facility] Comment on above: Order Comment: Speci men Type: BLOOD SPECIMENOrdering Facility: [facility] Address: [address] [place] [phone] Performed By: #### 2 777-1 ####[facility] [id number] [address] [place] URIC ACID BLOODon 08-08-2021 Urate [Mass/Vol] 7.5 mg/dL 4.0 - 8.1 mg/dL [facility] Urate [facility] Urate [Mass/Vol] 7.5 mg/dL Normal 4.0-8.1 [facility] Comment on above: Order Comment: Speci men Type: BLOOD SPECIMENOrdering Facility: [facility] Address: [address] [place] [address] Performed By: #### 2 4323-8, 3084-1, 00424-2 ####[facility] [id number] [place] [address] [place] aPTT PPPon 08-08-2021 aPTT Coag (PPP) [Time] 29.9 s Normal 23.0-32.4 [facility] Comment on above: Order Comment: Speci men Type: BLOOD SPECIMENOrdering Facility: [facility] Address: [address] [place] [address] Performed By: #### 3 4528-0, 83129-3 ####[facility] [id number] [place] [address] [place] CBC W Auto Differential pane l (Bld)on 08-06-2021 Basophils (Bld) [#/Vol] 0.03 10*3/uL Normal <0.11 [facility] Comment on above: Order Comment: Speci men Type: BLOOD SPECIMENOrdering Facility: [facility] Address: [address] [place] [address] Performed By: #### 5 7021-8 ####[facility] [id number] [place] [address] [place] Basophils/100 WBC (Bld) 0.5 % Normal [facility] Comment on above: Order Comment: Speci men Type: BLOOD SPECIMENOrdering Facility: [facility] Address: [address] [place] [address] Performed By: #### 5 7021-8 ####[facility] [id number] [address] [place] Differential cell count method Nom (Bld) Auto Normal [facility] Comment on above: Order Comment: Speci men Type: BLOOD SPECIMENOrdering Facility: [facility] Address: [address] [place] [address] Performed By: #### 5 7021-8 ####[facility] [id number] [place] [address] [place] Eosinophils (Bld) [#/Vol] 0.05 10*3/uL Normal <0.46 [facility] Comment on above: Order Comment: Speci men Type: BLOOD SPECIMENOrdering Facility: [facility] Address: [address] [place] [address] Performed By: #### 5 7021-8 ####[facility] [id number] [place] [address] Eosinophils/100 WBC (Bld) 0.8 % Normal [facility] Comment on above: Order Comment: Speci men Type: BLOOD SPECIMENOrdering Facility: [facility] Address: [address] [place] [address] Performed By: #### 5 7021-8 ####[facility] [id number] [place] [address] [place] Erythrocyte distribution width (RBC) [Ratio] 15.7 % High 11.5-15.0 [facility] Comment on above: Order Comment: Speci men Type: BLOOD SPECIMENOrdering Facility: [facility] Address: [address] [place], [place] [address] Performed By: #### 5 7021-8 ####[facility] [id number] [place] [address] [place] Hematocrit (Bld) [Volume fraction] 43.7 % Normal 39.0-51.0 [facility] Comment on above: Order Comment: Speci men Type: BLOOD SPECIMENOrdering Facility: [facility] Address: [address] [place] [address] Performed By: #### 5 7021-8 ####[facility] [id number] [place] [address] [place] Hemoglobin (Bld) [Mass/Vol] 14.8 g/dL Normal 13.0-17.0 [facility] Comment on above: Order Comment: Speci men Type: BLOOD SPECIMENOrdering Facility: [facility] Address: [address] [place] [address] Performed By: #### 5 7021-8 ####[facility] [id number] [place] [address] OF [facility] IMMATURE GRAN % 0.5 % Normal [facility] Comment on above: Order Comment: Speci men Type: BLOOD SPECIMENOrdering Facility: [facility] Address: [address] [place] [address] Performed By: #### 5 7021-8 ####[facility] [id number] [address] STATES OF [facility] IMMATURE GRAN ABS 0.03 k/uL Normal <0.10 [facility] Comment on above: Order Comment: Speci men Type: BLOOD SPECIMENOrdering Facility: [facility] Address: [address] [place], [place] [address] Performed By: #### 5 7021-8 ####[facility] [id number] [place] [address] [place] Lymphocytes (Bld) [#/Vol] 1.42 10*3/uL Normal 1.00-4.00 [facility] Comment on above: Order Comment: Speci men Type: BLOOD SPECIMENOrdering Facility: [facility] Address: [address] [place] [address] Performed By: #### 5 7021-8 ####[facility] [id number] [address] STATES [facility] Lymphocytes/100 WBC (Bld) 23.2 % Normal [facility] Comment on above: Order Comment: Speci men Type: BLOOD SPECIMENOrdering Facility: [facility] Address: [address] [place] [address] Performed By: #### 5 7021-8 ####[facility] [id number] [address] MCH (RBC) [Entitic mass] 29.9 pg Normal 26.0-34.0 [facility] Comment on above: Order Comment: Speci men Type: BLOOD SPECIMENOrdering Facility: [facility] Address: [address] [place] [address] Performed By: #### 5 7021-8 ####[facility] [id number] [address] OF [place] MCHC (RBC) [Mass/Vol] 33.9 g/dL Normal 30.5-36.0 [facility] Comment on above: Order Comment: Speci men Type: BLOOD SPECIMENOrdering Facility: [facility] Address: [address] [place], [place] [address] Performed By: #### 5 7021-8 ####[facility] [id number] [address] OF [facility] MCV (RBC) [Entitic vol] 88.3 fL Normal 80.0-100.0 [facility] Comment on above: Order Comment: Speci men Type: BLOOD SPECIMENOrdering Facility: [facility] Address: [address] [place], [place] [address] Performed By: #### 5 7021-8 ####[facility] [id number] [address] [place] Monocytes (Bld) [#/Vol] 0.50 10*3/uL Normal <0.87 [facility] Comment on above: Order Comment: Speci men Type: BLOOD SPECIMENOrdering Facility: [facility] Address: [address] [place], [place] [address] Performed By: #### 5 7021-8 ####[facility] [id number] [place] [address] [place] Monocytes/100 WBC (Bld) 8.2 % Normal [facility] Comment on above: Order Comment: Speci men Type: BLOOD SPECIMENOrdering Facility: [facility] Address: [address] [place], [place] [address] Performed By: #### 5 7021-8 ####[facility] [id number] [place] [address] [place] Neutrophils (Bld) [#/Vol] 4.08 10*3/uL Normal 1.45-7.50 [facility] Comment on above: Order Comment: Speci men Type: BLOOD SPECIMENOrdering Facility: [facility] Address: [address] [place], [place] [address] Performed By: #### 5 7021-8 ####[facility] [id number] [place] [address] OF [facility] Neutrophils/100 WBC (Bld) 66.8 % Normal [facility] Comment on above: Order Comment: Speci men Type: BLOOD SPECIMENOrdering Facility: [facility] Address: [address] [place], [place] [address] Performed By: #### 5 7021-8 ####[facility] [id number] [place] [address] [place] Nucleated RBC (Bld) [#/Vol] 10*3/uL Normal <0.01 [facility] Comment on above: Order Comment: Speci men Type: BLOOD SPECIMENOrdering Facility: [facility] Address: [address] [place] [address] Performed By: #### 5 7021-8 ####[facility] [id number] [place] [address] [place] Nucleated RBC/100 WBC (Bld) [Ratio] 0.0 /100 WBC Normal [facility] Comment on above: Order Comment: Speci men Type: BLOOD SPECIMENOrdering Facility: [facility] Address: [address] [place] [address] Performed By: #### 5 7021-8 ####[facility] [id number] [place] [address] [place] Platelet mean volume (Bld) [Entitic vol] 10.2 fL Normal 9.0-12.7 [facility] Comment on above: Order Comment: Speci men Type: BLOOD SPECIMENOrdering Facility: [facility] Address: [address] [place] [address] Performed By: #### 5 7021-8 ####[facility] [id number] [place] [address] [place] Platelets (Bld) [#/Vol] 262 10*3/uL Normal 150-400 [facility] Comment on above: Order Comment: Speci men Type: BLOOD SPECIMENOrdering Facility: [facility] Address: [address] [place], [place] [id number] Performed By: #### 5 7021-8 ####[facility] [id number] [place], [place] [address] [place] RBC (Bld) [#/Vol] 4.95 10*6/uL Normal 4.20-6.00 [facility] Comment on above: Order Comment: Speci men Type: BLOOD SPECIMENOrdering Facility: [facility] Address: [address] [place], [place] [address] Performed By: #### 5 7021-8 ####[facility] [id number] [place] [address] [place] WBC (Bld) [#/Vol] 6.11 10*3/uL Normal 3.70-11.00 [facility] Comment on above: Order Comment: Speci men Type: BLOOD SPECIMENOrdering Facility: [facility] Address: [address] [place], [place] [address] Performed By: #### 5 7021-8 ####[facility] [place] [id number] [place] [address] [place] CNNURSEon 08-06-2021 CNNURSE Normal [facility] CNOVSPon 08-06-2021 CNOVSP Normal [facility] CT ABD/PEL W IVCONon 022 CT ABD/PEL W IVCON Normal [facility] Comprehensive metabolic 2000 panelon 08-06-2021 Albumin [Mass/Vol] 4.3 g/dL Normal 3.9-4.9 [facility] Comment on above: Order Comment: Speci men Type: BLOOD SPECIMENOrdering Facility: [facility] Address: [address] [place], [place] [address] Performed By: #### 2 4323-8, 3084-1, 85700-9 ####[facility] [id number] [place] [address] STATES OF [facility] ALP [Catalytic activity/Vol] 64 U/L Normal 38-113 [facility] Comment on above: Order Comment: Speci men Type: BLOOD SPECIMENOrdering Facility: [facility] Address: [address] [place], [place] [address] Performed By: #### 2 4323-8, 3084-1, 51061-0 ####[facility] [place] [id number] [place] [address] [place] [facility] ALT [Catalytic activity/Vol] 52 U/L Normal 10-54 [facility] Comment on above: Order Comment: Speci men Type: BLOOD SPECIMENOrdering Facility: [facility] Address: [address] [place], [place] [address] Performed By: #### 2 4323-8, 3084-1, ####[facility] [id number] [place] [address] [place] Anion gap [Moles/Vol] 9 mmol/L Normal 9-18 [facility] Comment on above: Order Comment: Speci men Type: BLOOD SPECIMENOrdering Facility: [facility] Address: [address] [place], [place] [address] Performed By: #### 2 4323-8, 3084-1, ####[facility] [id number] [place] [address] [place] AST [Catalytic activity/Vol] 46 U/L High 14-40 [facility] Comment on above: Order Comment: Speci men Type: BLOOD SPECIMENOrdering Facility: [facility] Address: [address] [place], [place] [address] Performed By: #### 2 4323-8, 3084-1, ####[facility] [id number] [place] [address] [place] Bilirubin [Mass/Vol] 0.3 mg/dL Normal 0.2-1.3 [facility] Comment on above: Order Comment: Speci men Type: BLOOD SPECIMENOrdering Facility: [facility] Address: [address] [place] [address] Performed By: #### 2 4323-8, 3084-1, ####[facility] [id number] [place] [id number] [place] Calcium [Mass/Vol] 9.1 mg/dL Normal 8.5-10.2 [facility] Comment on above: Order Comment: Speci men Type: BLOOD SPECIMENOrdering Facility: [facility] Address: [address] [place], [place] [address] Performed By: #### 2 4323-8, 3084-1, ####[facility] [id number] [place] [address] [place] Chloride [Moles/Vol] 107 mmol/L High 97-105 [facility] Comment on above: Order Comment: Speci men Type: BLOOD SPECIMENOrdering Facility: [facility] Address: [address] [place], [place] [phone] Performed By: #### 2 4323-8, 3084-1, ####[facility] [id number] [place] [address] [place] CO2 [Moles/Vol] 25 mmol/L Normal 22-30 [facility] Comment on above: Order Comment: Speci men Type: BLOOD SPECIMENOrdering Facility: [facility] Address: [address] [place], [place] [address] Performed By: #### 2 4323-8, 3084-1, ####[facility] [id number] [place] [address] [place] Creatinine [Mass/Vol] 1.24 mg/dL High 0.73-1.22 [facility] Comment on above: Order Comment: Speci men Type: BLOOD SPECIMENOrdering Facility: [facility] Address: [address] [place], [place] [phone] Performed By: #### 2 4323-8, 308-1, ####[facility] [id number] [place] [address] [place] ESTIMATED GLOMERULAR FILTRATION RATE 68 mL/min/1.73m??? Normal >=60 [facility] Comment on above: Order Comment: Speci men Type: BLOOD SPECIMENOrdering Facility: [facility] Address: [address] [place], [place] [phone] Result Comment: Laurita mated Glomerular Filtration Rate [...] #### 2 4323-8, 308-, ####[facility] [id number] [place] [address] [place] Glucose [Mass/Vol] 121 mg/dL High 74-99 [facility] Comment on above: Order Comment: Aaliyah gibson Type: BLOOD SPECIMENOrdering Facility: [facility] Address: [address] [place] [phone] Result Comment: The [place] [employer] (ADA) provides guidance for cutoff [...] Standards of Medical Care in Diabetes 2016, [place] [employer]. Diabetes Care. 2016.39(Suppl 1). Performed By: #### 2 4323-8, 3083-03, ####[facility] [id number] [place] [address] [place] Potassium [Moles/Vol] 4.6 mmol/L Normal 3.7-5.1 [facility] Comment on above: Order Comment: Aaliyah gibson Type: BLOOD SPECIMENOrdering Facility: [facility] Address: [address] [phone] Performed By: #### 2 4323-8, 3084-, ####[facility] [id number] [place] [address] [place] Protein [Mass/Vol] 6.9 g/dL Normal 6.3-8.0 [facility] Comment on above: Order Comment: Speci men Type: BLOOD SPECIMENOrdering Facility: [facility] Address: [address] [place] [address] Performed By: #### 2 4323-8, 3084-1, ####[facility] [id number] [place] [address] [place] Sodium [Moles/Vol] 141 mmol/L Normal 136-144 [facility] Comment on above: Order Comment: Speci men Type: BLOOD SPECIMENOrdering Facility: [facility] Address: [address] [place] [address] Performed By: #### 2 4323-8, 3084-1, ####[facility] [id number] [place] [address] [place] Urea nitrogen [Mass/Vol] 20 mg/dL Normal 9-24 [facility] Comment on above: Order Comment: Speci men Type: BLOOD SPECIMENOrdering Facility: [facility] Address: [address] [place] [address] Performed By: #### 2 4323-8, 3084-1, ####[facility] [id number] [place] [address] [place] LDH SerPl-cCncon 08-06-2021 LDH [Catalytic activity/Vol] 260 U/L High 135-225 [facility] Comment on above: Order Comment: Speci men Type: BLOOD SPECIMENOrdering Facility: [facility] Address: [address] [place], [place] [address] Performed By: #### 2 532-0 ####[facility] [id number] [place] [address] [place] Magnesium SerPl-mCncon 08-06 Magnesium [Mass/Vol] 2.4 mg/dL High 1.7-2.3 [facility] Comment on above: Order Comment: Aaliyah paige Type: BLOOD SPECIMENOrdering Facility: [facility] Address: [address] [place] [address] Performed By: #### 2 4323-8, 3084-1, 29969-9 ####[facility] [id number] [place] [address] [place] PT panel Coag (PPP)on 2021 INR Coag (PPP) [Relative time] 1.0 {INR} Normal 0.9-1.3 [facility] Comment on above: Order Comment: Aaliyah gibson Type: BLOOD SPECIMENOrdering Facility: [facility] Address: [address] [place] [address] Result Comment: Constanza min K Antagonist (VKA) Therapeutic Range: INR 2 to 3 (Target INR of 2.5)Note: For patients treated with VKA drugs, such as warfarin, the [place] [employer] 2012 Guideline recommends [...] 70: 252-289 Performed By: #### 3 4528-0, 27982-3 ####[facility] [id number] [address] [place] PT Coag (PPP) [Time] 10.7 s Normal 9.7-13.0 [facility] Comment on above: Order Comment: Speci men Type: BLOOD SPECIMENOrdering Facility: [facility] Address: [address] [place] [address] Performed By: #### 3 4528-0, 80127-7 ####[facility] [id number] [place] [address] [place] Phosphate SerPl-mCncon 08-06 Phosphate [Mass/Vol] 3.8 mg/dL Normal 2.7-4.8 [facility] Comment on above: Order Comment: Speci men Type: BLOOD SPECIMENOrdering Facility: [facility] Address: [address] [place] [address] Performed By: #### 2 777-1 ####[facility] [id number] [place] [address] [place] T3 FREE BLDon 08-06-2021 Free T3 [Mass/Vol] 2.9 pg/mL Normal 2.3-4.1 [facility] Comment on above: Order Comment: Speci men Type: BLOOD SPECIMENOrdering Facility: [facility] Address: [address] [place] [address] Performed By: #### F T4, FREET3 ####[facility] [id number] [place] [address] [place] T4 FREE/FREE THYROXon 2021 Free T4 [Mass/Vol] 1.0 ng/dL Normal 0.9-1.7 [facility] Comment on above: Order Comment: Speci men Type: BLOOD SPECIMENOrdering Facility: [facility] Address: [address] [place] [address] Performed By: #### F T4, FREET3 ####[facility] [id number] [address] [id number] [address] [place] TSH SerPl-aCncon 08-06-2021 TSH Qn 1.770 m[IU]/L Normal 0.270-4.20 0 [facility] Comment on above: Order Comment: Speci men Type: BLOOD SPECIMENOrdering Facility: [facility] Address: [address] [place] [address] Performed By: #### 3 016-3 ####[facility] [id number] [place] [address] [place] Urate SerPl-mCncon 2 Urate [Mass/Vol] 7.2 mg/dL Normal 4.0-8.1 [facility] Comment on above: Order Comment: Speci men Type: BLOOD SPECIMENOrdering Facility: [facility] Address: [address] [place] [address] Performed By: #### 2 4323-8, 3084-1, 96009-0 ####[facility] [id number] [address] [place] aPTT PPPon 08-06-2021 aPTT Coag (PPP) [Time] 28.8 s Normal 23.0-32.4 [facility] Comment on above: Order Comment: Speci men Type: BLOOD SPECIMENOrdering Facility: [facility] Address: [address] [place] [address] Performed By: #### 3 4528-0, 89024-0 ####[facility] [id number] [place] [address] [place] CNPNon 08-03-2021 CNPN Normal [facility] CNOVon 07-31-2021 CNOV Normal [facility] CNOV Normal [facility] NURSING PROGon 07-31-2021 NURSING PROG Normal [facility] CNPNon 07-30-2021 CNPN Normal [facility] CNPNon 07-29-2021 CNPN Normal [facility] CNPNon 07-25-2021 CNPN Normal [facility] CBC W Auto Differential pane l (Bld)on 07-24-2021 Basophils (Bld) [#/Vol] 0.04 10*3/uL Normal <0.11 [facility] Comment on above: Order Comment: Speci men Type: BLOOD SPECIMENOrdering Facility: [facility] Address: [address] [place] [address] Performed By: #### 5 7021-8 ####[facility] [place] [id number] [place] [address] [place] Basophils/100 WBC (Bld) 0.3 % Normal [facility] Comment on above: Order Comment: Speci men Type: BLOOD SPECIMENOrdering Facility: [facility] Address: [address] [place] [address] Performed By: #### 5 7021-8 ####[facility] [place] [id number] [place] [address] OF [facility] Differential cell count method Nom (Bld) Auto Normal [facility] Comment on above: Order Comment: Speci men Type: BLOOD SPECIMENOrdering Facility: [facility] Address: [address] [place] [address] Performed By: #### 5 7021-8 ####[facility] [place] [id number] [place] [address] [place] Eosinophils (Bld) [#/Vol] 10*3/uL Normal <0.46 [facility] Comment on above: Order Comment: Speci men Type: BLOOD SPECIMENOrdering Facility: [facility] Address: [address] [place] [address] Performed By: #### 5 7021-8 ####[facility] [id number] [place] [address] [place] Eosinophils/100 WBC (Bld) 0.1 % Normal [facility] Comment on above: Order Comment: Speci men Type: BLOOD SPECIMENOrdering Facility: [facility] Address: [address] [place] [address] Performed By: #### 5 7021-8 ####[facility] [place] [id number] [place] [address] Erythrocyte distribution width (RBC) [Ratio] 15.9 % High 11.5-15.0 [facility] Comment on above: Order Comment: Speci men Type: BLOOD SPECIMENOrdering Facility: [facility] Address: [address] [place], [place] [address] Performed By: #### 5 7021-8 ####[facility] [place] [id number] [place] [address] STATES OF [facility] Hematocrit (Bld) [Volume fraction] 43.2 % Normal 39.0-51.0 [facility] Comment on above: Order Comment: Speci men Type: BLOOD SPECIMENOrdering Facility: [facility] Address: [address] [place] [address] Performed By: #### 5 7021-8 ####[facility] [place] [id number] [place] [address] [place] Hemoglobin (Bld) [Mass/Vol] 14.7 g/dL Normal 13.0-17.0 [facility] Comment on above: Order Comment: Speci men Type: BLOOD SPECIMENOrdering Facility: [facility] Address: [address] [place], [place] [address] Performed By: #### 5 7021-8 ####[facility] [id number] [address] [place] IMMATURE GRAN % 0.9 % Normal [facility] Comment on above: Order Comment: Speci men Type: BLOOD SPECIMENOrdering Facility: [facility] Address: [address] [place], [place] [address] Performed By: #### 5 7021-8 ####[facility] [place] [id number] [place] [address] [place] IMMATURE GRAN ABS 0.10 k/uL High <0.10 [facility] Comment on above: Order Comment: Speci men Type: BLOOD SPECIMENOrdering Facility: [facility] Address: [address] [place] [address] Performed By: #### 5 7021-8 ####[facility] [id number] [place] [address] [place] Lymphocytes (Bld) [#/Vol] 2.16 10*3/uL Normal 1.00-4.00 [facility] Comment on above: Order Comment: Speci men Type: BLOOD SPECIMENOrdering Facility: [facility] Address: [address] [place] [address] Performed By: #### 5 7021-8 ####[facility] [id number] [place] [address] STATES [facility] Lymphocytes/100 WBC (Bld) 18.7 % Normal [facility] Comment on above: Order Comment: Speci men Type: BLOOD SPECIMENOrdering Facility: [facility] Address: [address] [place] [address] Performed By: #### 5 7021-8 ####[facility] [place] [id number] [place] [address] [place] MCH (RBC) [Entitic mass] 29.9 pg Normal 26.0-34.0 [facility] Comment on above: Order Comment: Speci men Type: BLOOD SPECIMENOrdering Facility: [facility] Address: [address] [place] [address] Performed By: #### 5 7021-8 ####[facility] [place] [id number] [place] [address] [place] MCHC (RBC) [Mass/Vol] 34.0 g/dL Normal 30.5-36.0 [facility] Comment on above: Order Comment: Speci men Type: BLOOD SPECIMENOrdering Facility: [facility] Address: [address] [place], [place] [address] Performed By: #### 5 7021-8 ####[facility] [id number] [place] [address] [place] MCV (RBC) [Entitic vol] 88.0 fL Normal 80.0-100.0 [facility] Comment on above: Order Comment: Speci men Type: BLOOD SPECIMENOrdering Facility: [facility] Address: [address] [place], [place] [address] Performed By: #### 5 7021-8 ####[facility] [id number] [place] [address] [place] Monocytes (Bld) [#/Vol] 0.79 10*3/uL Normal <0.87 [facility] Comment on above: Order Comment: Speci men Type: BLOOD SPECIMENOrdering Facility: [facility] Address: [address] [place], [place] [address] Performed By: #### 5 7021-8 ####[facility] [id number] [address] [place] Monocytes/100 WBC (Bld) 6.8 % Normal [facility] Comment on above: Order Comment: Speci men Type: BLOOD SPECIMENOrdering Facility: [facility] Address: [address] [place], [place] [address] Performed By: #### 5 7021-8 ####[facility] [id number] [place] [address] [place] Neutrophils (Bld) [#/Vol] 8.45 10*3/uL High 1.45-7.50 [facility] Comment on above: Order Comment: Speci men Type: BLOOD SPECIMENOrdering Facility: [facility] Address: [address] Performed By: #### 5 7021-8 ####[facility] [id number] [address] Neutrophils/100 WBC (Bld) 73.2 % Normal [facility] Comment on above: Order Comment: Speci men Type: BLOOD SPECIMENOrdering Facility: [facility] Address: [address] [place], [place] [address] Performed By: #### 5 7021-8 ####[facility] [id number] [place] [address] [place] Nucleated RBC (Bld) [#/Vol] 10*3/uL Normal <0.01 [facility] Comment on above: Order Comment: Speci men Type: BLOOD SPECIMENOrdering Facility: [facility] Address: [address] [place], [place] [address] Performed By: #### 5 7021-8 ####[facility] [place] [id number] [place] [address] [place] Nucleated RBC/100 WBC (Bld) [Ratio] 0.0 /100 WBC Normal [facility] Comment on above: Order Comment: Speci men Type: BLOOD SPECIMENOrdering Facility: [facility] Address: [address] [place], [place] [address] Performed By: #### 5 7021-8 ####[facility] [id number] [address] [place] Platelet mean volume (Bld) [Entitic vol] 10.5 fL Normal 9.0-12.7 [facility] Comment on above: Order Comment: Speci men Type: BLOOD SPECIMENOrdering Facility: [facility] Address: [address] [place], [place] [address] Performed By: #### 5 7021-8 ####[facility] [id number] [place] [address] [place] Platelets (Bld) [#/Vol] 241 10*3/uL Normal 150-400 [facility] Comment on above: Order Comment: Speci men Type: BLOOD SPECIMENOrdering Facility: [facility] Address: [address] [place] [address] Performed By: #### 5 7021-8 ####[facility] [id number] [place] [address] [place] RBC (Bld) [#/Vol] 4.91 10*6/uL Normal 4.20-6.00 [facility] Comment on above: Order Comment: Speci men Type: BLOOD SPECIMENOrdering Facility: [facility] Address: [address] [place] [address] Performed By: #### 5 7021-8 ####[facility] [id number] [place] [address] [place] WBC (Bld) [#/Vol] 11.55 10*3/uL High 3.70-11.00 [facility] Comment on above: Order Comment: Speci men Type: BLOOD SPECIMENOrdering Facility: [facility] Address: [address] [place] [address] Performed By: #### 5 7021-8 ####[facility] [id number] [place] [address] [place] CNNURSEon 07-24-2021 CNNURSE Normal [facility] CNOVSPon 07-24-2021 CNOVSP Normal [facility] CNPNon 07-24-2021 CNPN Normal [facility] Comprehensive metabolic 2000 panelon 07-24-2021 Albumin [Mass/Vol] 4.0 g/dL Normal 3.9-4.9 [facility] Comment on above: Order Comment: Speci men Type: BLOOD SPECIMENOrdering Facility: [facility] Address: [address] [place] [address] Performed By: #### 2 4323-8, 07947-5, 4- ####[facility] [id number] [place] [address] [place] ALP [Catalytic activity/Vol] 64 U/L Normal 38-113 [facility] Comment on above: Order Comment: Speci men Type: BLOOD SPECIMENOrdering Facility: [facility] Address: [address] [place], [place] [address] Performed By: #### 2 4323-8, 65636-3, 3083- ####[facility] [id number] [address] [place] ALT [Catalytic activity/Vol] 36 U/L Normal 10-54 [facility] Comment on above: Order Comment: Speci men Type: BLOOD SPECIMENOrdering Facility: [facility] Address: [address] [place] [address] Performed By: #### 2 4323-8, , 3083- ####[facility] [id number] [place] [address] [place] Anion gap [Moles/Vol] 11 mmol/L Normal 9-18 [facility] Comment on above: Order Comment: Speci men Type: BLOOD SPECIMENOrdering Facility: [facility] Address: [address] [place], [place] [address] Performed By: #### 2 4323-8, , 3083- ####[facility] [id number] [place] [address] [place] AST [Catalytic activity/Vol] 25 U/L Normal 14-40 [facility] Comment on above: Order Comment: Speci men Type: BLOOD SPECIMENOrdering Facility: [facility] Address: [address] [place], [place] [address] Result Comment: Resu lts may be falsely increased due to interference from hemolysis. Suggest reorder as clinically indicated. Performed By: #### 2 4323-8, 91994-4, 4- ####[facility] [id number] [address] [address] [place] Bilirubin [Mass/Vol] 0.2 mg/dL Normal 0.2-1.3 [facility] Comment on above: Order Comment: Speci men Type: BLOOD SPECIMENOrdering Facility: [facility] Address: [address] [place], [place] [id number] Performed By: #### 2 4323-8, 80063-2, 3083- ####[facility] LABCLIA [id number] [place] [address] [place] Calcium [Mass/Vol] 9.2 mg/dL Normal 8.5-10.2 [facility] Comment on above: Order Comment: Speci men Type: BLOOD SPECIMENOrdering Facility: [facility] Address: [address] [place], [place] [id number] Performed By: #### 2 4323-8, , 3083- ####[facility] LABIA [id number] [place] [address] [place] Chloride [Moles/Vol] 104 mmol/L Normal 97-105 [facility] Comment on above: Order Comment: Speci men Type: BLOOD SPECIMENOrdering Facility: [facility] Address: [address] [place], [place] [address] Performed By: #### 2 4323-8, 57818-7, 3083- ####[facility] LABIA [id number] [place] [id number] [place] CO2 [Moles/Vol] 26 mmol/L Normal 22-30 [facility] Comment on above: Order Comment: Speci men Type: BLOOD SPECIMENOrdering Facility: [facility] Address: [address] [place], [place] [address] Performed By: #### 2 4323-8, 35069-5, 3083-03 ####[facility] LABCLIA [id number] [place] [address] [place] Creatinine [Mass/Vol] 1.03 mg/dL Normal 0.73-1.22 [facility] Comment on above: Order Comment: Aaliyah gibson Type: BLOOD SPECIMENOrdering Facility: [facility] Address: [address] [address] Performed By: #### 2 4323-8, 92820-3, 3083-03 ####[facility] LABIA [id number] [place] [address] [place] ESTIMATED GLOMERULAR FILTRATION RATE 85 mL/min/1.73m??? Normal >=60 [facility] Comment on above: Order Comment: Aaliyah gibson Type: BLOOD SPECIMENOrdering Facility: [facility] Address: [address] [place] [address] Result Comment: Laurita mated Glomerular Filtration Rate [...] actual GFR. Performed By: #### 2 4323-8, 49707-7, 3083-03 ####[facility] LABIA [id number] [place] [address] [place] Glucose [Mass/Vol] 103 mg/dL High 74-99 [facility] Comment on above: Order Comment: Aaliyah gibson Type: BLOOD SPECIMENOrdering Facility: [facility] Address: [address] [place] [address] Result Comment: The [place] Diabetes Association (ADA) provides guidance for cutoff [...] Standards of Medical Care in Diabetes 2016, [place] [employer]. Diabetes Care. 2016.39(Suppl 1). Performed By: #### 2 4323-8, , 3083-03 ####[facility] LABCLIA [id number] [place] [address] [place] Potassium [Moles/Vol] 4.1 mmol/L Normal 3.7-5.1 [facility] Comment on above: Order Comment: Speci men Type: BLOOD SPECIMENOrdering Facility: [facility] Address: [address] [place] [address] Performed By: #### 2 4323-8, , 3083-03 ####[facility] LABCLIA [id number] [place] [address] [place] Protein [Mass/Vol] 6.6 g/dL Normal 6.3-8.0 [facility] Comment on above: Order Comment: Speci men Type: BLOOD SPECIMENOrdering Facility: [facility] Address: [address] [place] [address] Performed By: #### 2 4323-8, , 3083-03 ####[facility] LABCLIA [id number] [place] [id number] [place] Sodium [Moles/Vol] 141 mmol/L Normal 136-144 [facility] Comment on above: Order Comment: Speci men Type: BLOOD SPECIMENOrdering Facility: [facility] Address: [address] [place], [place] [address] Performed By: #### 2 4323-8, , 3083-03 ####[facility] LABCLIA [id number] [place] [address] [place] Urea nitrogen [Mass/Vol] 22 mg/dL Normal 9-24 [facility] Comment on above: Order Comment: Speci men Type: BLOOD SPECIMENOrdering Facility: [facility] Address: [address] [place] [address] Performed By: #### 2 4323-8, 98188-9, 3084-1 ####[facility] [id number] [place] [address] [place] LDH SerPl-cCncon 07-24-2021 LDH [Catalytic activity/Vol] 217 U/L Normal 135-225 [facility] Comment on above: Order Comment: Speci men Type: BLOOD SPECIMENOrdering Facility: [facility] Address: [address] [place] [address] Performed By: #### 2 532-0 ####[facility] [id number] [place] [address] [place] Magnesium SerPl-mCncon 07-24 Magnesium [Mass/Vol] 2.3 mg/dL Normal 1.7-2.3 [facility] Comment on above: Order Comment: Speci men Type: BLOOD SPECIMENOrdering Facility: [facility] Address: [address] [place] [address] Performed By: #### 2 4323-8, 65336-5, 3084-1 ####[facility] [id number] [place] [address] [place] PT panel Coag (PPP)on 2021 INR Coag (PPP) [Relative time] 1.0 {INR} Normal 0.9-1.3 [facility] Comment on above: Order Comment: Speci men Type: BLOOD SPECIMENOrdering Facility: [facility] Address: [address] [place], [place] [address] Result Comment: Constanza min K Antagonist (VKA) Therapeutic Range: INR 2 to 3 (Target INR of 2.5)Note: For patients treated with VKA drugs, such as warfarin, the [place] [employer] 2012 Guideline recommends [...] al. Chest 2012, 141:7S-47SNishnini RA, et al. [facility] 2017, 70: 252-289 Performed By: #### 3 4528-0, 92143-3 ####[facility] [id number] [place] [address] [place] PT Coag (PPP) [Time] 10.5 s Normal 9.7-13.0 [facility] Comment on above: Order Comment: Speci men Type: BLOOD SPECIMENOrdering Facility: [facility] Address: [address] [place] [address] Performed By: #### 3 4528-0, 00281-5 ####[facility] [id number] [place] [address] [place] Phosphate SerPl-mCncon 07-24 Phosphate [Mass/Vol] 3.1 mg/dL Normal 2.7-4.8 [facility] Comment on above: Order Comment: Speci men Type: BLOOD SPECIMENOrdering Facility: [facility] Address: [address] [place] [address] Performed By: #### 2 777-1 ####[facility] LABIA [id number] [place] [address] [place] Urate SerPl-mCncon Urate [Mass/Vol] 6.4 mg/dL Normal 4.0-8.1 [facility] Comment on above: Order Comment: Speci men Type: BLOOD SPECIMENOrdering Facility: [facility] Address: [address] [place] [address] Performed By: #### 2 4323-8, 50337-6, 3084-1 ####[facility] [id number] [place] [address] [place] aPTT PPPon 07-24-2021 aPTT Coag (PPP) [Time] 27.5 s Normal 23.0-32.4 [facility] Comment on above: Order Comment: Speci men Type: BLOOD SPECIMENOrdering Facility: [facility] Address: [address] [place] [address] Performed By: #### 3 4528-0, 92293-0 ####[facility] [id number] [place] [address] [place] CNPNon 07-23-2021 CNPN Normal [facility] ACTIVATED PTTon 07-21-2021 aPTT Coag (PPP) [Time] 29.1 s 23.0 - 32.4 sec [facility] CBC W Auto Differential pane l (Bld)on 07-21-2021 Basophils (Bld) [#/Vol] 0.04 10*3/uL Normal <0.11 [facility] Comment on above: Order Comment: Speci men Type: BLOOD SPECIMENOrdering Facility: [facility] Address: [address] [place], [place] [address] Performed By: #### 5 7021-8 ####[facility] [place] [id number] [address] [place] Basophils/100 WBC (Bld) 0.5 % Normal C [facility] Comment on above: Order Comment: Speci men Type: BLOOD SPECIMENOrdering Facility: [facility] Address: [address] [place] [address] Performed By: #### 5 7021-8 ####[facility] [id number] [place] [address] Differential cell count method Nom (Bld) Auto Normal [facility] Comment on above: Order Comment: Speci men Type: BLOOD SPECIMENOrdering Facility: [facility] Address: [address] [place] [address] Performed By: #### 5 7021-8 ####[facility] [place] [id number] [place] [address] [place] Eosinophils (Bld) [#/Vol] 0.05 10*3/uL Normal <0.46 [facility] Comment on above: Order Comment: Speci men Type: BLOOD SPECIMENOrdering Facility: [facility] Address: [address] [place] [address] Performed By: #### 5 7021-8 ####[facility] [place] [id number] [place] [address] Eosinophils/100 WBC (Bld) 0.7 % Normal [facility] Comment on above: Order Comment: Speci men Type: BLOOD SPECIMENOrdering Facility: [facility] Address: [address] [place], [place] [address] Performed By: #### 5 7021-8 ####[facility] [place] [id number] [place] [address] [place] [facility] Erythrocyte distribution width (RBC) [Ratio] 15.5 % High 11.5-15.0 [facility] Comment on above: Order Comment: Speci men Type: BLOOD SPECIMENOrdering Facility: [facility] Address: [address] [place] [address] Performed By: #### 5 7021-8 ####[facility] [place] [id number] OF [facility] Hematocrit (Bld) [Volume fraction] 45.5 % Normal 39.0-51.0 [facility] Comment on above: Order Comment: Speci men Type: BLOOD SPECIMENOrdering Facility: [facility] Address: [address] [place] [address] Performed By: #### 5 7021-8 ####[facility] [id number] [place] [address] OF [facility] Hemoglobin (Bld) [Mass/Vol] 15.1 g/dL Normal 13.0-17.0 [facility] Comment on above: Order Comment: Speci men Type: BLOOD SPECIMENOrdering Facility: [facility] Address: [address] [place] [address] Performed By: #### 5 7021-8 ####[facility] [id number] [place] [address] OF [facility] IMMATURE GRAN % 0.8 % Normal [facility] Comment on above: Order Comment: Speci men Type: BLOOD SPECIMENOrdering Facility: [facility] Address: [address] [place] [address] Performed By: #### 5 7021-8 ####[facility] [id number] [place] [address] IMMATURE GRAN ABS 0.06 k/uL Normal <0.10 [facility] Comment on above: Order Comment: Speci men Type: BLOOD SPECIMENOrdering Facility: [facility] Address: [address] [place] [address] Performed By: #### 5 7021-8 ####[facility] [id number] [place] [address] [place] Lymphocytes (Bld) [#/Vol] 2.22 10*3/uL Normal 1.00-4.00 [facility] Comment on above: Order Comment: Speci men Type: BLOOD SPECIMENOrdering Facility: [facility] Address: [address] [place], [place] [address] Performed By: #### 5 7021-8 ####[facility] [place] [id number] [place] [address] Lymphocytes/100 WBC (Bld) 28.9 % Normal [facility] Comment on above: Order Comment: Speci men Type: BLOOD SPECIMENOrdering Facility: [facility] Address: [address] [place], [place] [address] Performed By: #### 5 7021-8 ####[facility] [id number] [place] [address] [place] MCH (RBC) [Entitic mass] 30.1 pg Normal 26.0-34.0 [facility] Comment on above: Order Comment: Speci men Type: BLOOD SPECIMENOrdering Facility: [facility] Address: [address] [place], [place] [address] Performed By: #### 5 7021-8 ####[facility] [id number] [place] [address] OF [facility] MCHC (RBC) [Mass/Vol] 33.2 g/dL Normal 30.5-36.0 [facility] Comment on above: Order Comment: Speci men Type: BLOOD SPECIMENOrdering Facility: [facility] Address: [address] [place] [address] Performed By: #### 5 7021-8 ####[facility] [id number] [place] [address] [place] [facility] MCV (RBC) [Entitic vol] 90.6 fL Normal 80.0-100.0 C [facility] Comment on above: Order Comment: Speci men Type: BLOOD SPECIMENOrdering Facility: [facility] Address: [address] [place], [place] [address] Performed By: #### 5 7021-8 ####[facility] [id number] [place] [address] [place] Monocytes (Bld) [#/Vol] 0.52 10*3/uL Normal <0.87 [facility] Comment on above: Order Comment: Speci men Type: BLOOD SPECIMENOrdering Facility: [facility] Address: [address] [place] [address] Performed By: #### 5 7021-8 ####[facility] [id number] [place] [address] [place] Monocytes/100 WBC (Bld) 6.8 % Normal [facility] Comment on above: Order Comment: Speci men Type: BLOOD SPECIMENOrdering Facility: [facility] Address: [address] [place] [address] Performed By: #### 5 7021-8 ####[facility] [place] [id number] [place] [address] [place] Neutrophils (Bld) [#/Vol] 4.79 10*3/uL Normal 1.45-7.50 [facility] Comment on above: Order Comment: Speci men Type: BLOOD SPECIMENOrdering Facility: [facility] Address: [address] [place] [address] Performed By: #### 5 7021-8 ####[facility] [id number] [place] [address] [place] Neutrophils/100 WBC (Bld) 62.3 % Normal [facility] Comment on above: Order Comment: Speci men Type: BLOOD SPECIMENOrdering Facility: [facility] Address: [address] [place], [place] [address] Performed By: #### 5 7021-8 ####[facility] [id number] [place] [address] [place] Nucleated RBC (Bld) [#/Vol] 10*3/uL Normal <0.01 [facility] Comment on above: Order Comment: Speci men Type: BLOOD SPECIMENOrdering Facility: [facility] Address: [address] [place], [place] [address] Performed By: #### 5 7021-8 ####[facility] [id number] [place] [address] [place] Nucleated RBC/100 WBC (Bld) [Ratio] 0.0 /100 WBC Normal [facility] Comment on above: Order Comment: Speci men Type: BLOOD SPECIMENOrdering Facility: [facility] Address: [address] [place], [place] [address] Performed By: #### 5 7021-8 ####[facility] [id number] [place] [address] [place] Platelet mean volume (Bld) [Entitic vol] 10.8 fL Normal 9.0-12.7 [facility] Comment on above: Order Comment: Speci men Type: BLOOD SPECIMENOrdering Facility: [facility] Address: [address] [place], [place] [address] Performed By: #### 5 7021-8 ####[facility] [id number] [place] [address] [place] Platelets (Bld) [#/Vol] 245 10*3/uL Normal 150-400 [facility] Comment on above: Order Comment: Speci men Type: BLOOD SPECIMENOrdering Facility: [facility] Address: [address] [place] [address] Performed By: #### 5 7021-8 ####[facility] [id number] [place] [address] [place] RBC (Bld) [#/Vol] 5.02 10*6/uL Normal 4.20-6.00 [facility] Comment on above: Order Comment: Speci men Type: BLOOD SPECIMENOrdering Facility: [facility] Address: [address] [place] [address] Performed By: #### 5 7021-8 ####[facility] [id number] [address] WBC (Bld) [#/Vol] 7.68 10*3/uL Normal 3.70-11.00 [facility] Comment on above: Order Comment: Speci men Type: BLOOD SPECIMENOrdering Facility: [facility] Address: [address] [place] [address] Performed By: #### 5 7021-8 ####[facility] [id number] [place] [address] [place] Abs Immature Gran 0.06 k/uL <0.10 k/uL [facility] Basophils (Bld) [#/Vol] 0.04 10*3/uL <0.11 k/uL [facility] Basophils/100 WBC (Bld) 0.5 % [facility] Differential cell count method Nom (Bld) Auto [facility] Eosinophils (Bld) [#/Vol] 0.05 10*3/uL <0.46 k/uL [facility] Eosinophils/100 WBC (Bld) 0.7 % [facility] Erythrocyte distribution width (RBC) [Ratio] 15.5 % High 11.5 - 15.0 % [facility] Hematocrit (Bld) [Volume fraction] 45.5 % 39.0 - 51.0 % [facility] Hemoglobin (Bld) [Mass/Vol] 15.1 g/dL 13.0 - 17.0 g/dL [facility] Immature Gran % 0.8 % [facility] Lymphocytes (Bld) [#/Vol] 2.22 10*3/uL 1.00 - 4.00 k/uL [facility] Lymphocytes/100 WBC (Bld) 28.9 % [facility] MCH (RBC) [Entitic mass] 30.1 pg 26.0 - 34.0 pg [facility] MCHC (RBC) [Mass/Vol] 33.2 g/dL 30.5 - 36.0 g/dL [facility] MCV (RBC) [Entitic vol] 90.6 fL 80.0 - 100.0 fL [facility] Monocytes (Bld) [#/Vol] 0.52 10*3/uL <0.87 k/uL [facility] Monocytes/100 WBC (Bld) 6.8 % C [facility] Neutrophils (Bld) [#/Vol] 4.79 10*3/uL 1.45 - 7.50 k/uL [facility] Neutrophils/100 WBC (Bld) 62.3 % [facility] Nucleated RBC (Bld) [#/Vol] 10*3/uL <0.01 k/uL [facility] Nucleated RBC/100 WBC (Bld) [Ratio] 0.0 /100 WBC [facility] Platelet mean volume (Bld) [Entitic vol] 10.8 fL 9.0 - 12.7 fL [facility] Platelets (Bld) [#/Vol] 245 10*3/uL 150 - 400 k/uL [facility] RBC (Bld) [#/Vol] 5.02 10*6/uL 4.20 - 6.00 m/uL [facility] WBC (Bld) [#/Vol] 7.68 10*3/uL 3.70 - 11.00 k/uL [facility] CNNURSEon 07-21-2021 CNNURSE Normal [facility] CNPNon 07-21-2021 CNPN Normal [facility] CT CHEST W IVCONon 2 CT CHEST W IVCON Normal [facility] Comprehensive metabolic 2000 panelon 07-21-2021 Albumin [Mass/Vol] 4.0 g/dL Normal 3.9-4.9 [facility] Comment on above: Order Comment: Speci men Type: BLOOD SPECIMENOrdering Facility: [facility] Address: [address] [place], [place] [id number] Performed By: #### 1 9123-9, 89925-4, 3084-1 ####[facility] [id number] [address] [place] ALP [Catalytic activity/Vol] 57 U/L Normal 38-113 [facility] Comment on above: Order Comment: Speci men Type: BLOOD SPECIMENOrdering Facility: [facility] Address: [address] [place], [place] [address] Performed By: #### 1 9123-9, 88454-5, 3083-1 ####[facility] [id number] [place] [address] [place] ALT [Catalytic activity/Vol] 26 U/L Normal 10-54 [facility] Comment on above: Order Comment: Speci men Type: BLOOD SPECIMENOrdering Facility: [facility] Address: [address] [place] [address] Performed By: #### 1 9123-9, 26368-3, 3083-1 ####[facility] [id number] [place] [address] [place] Anion gap [Moles/Vol] 10 mmol/L Normal 9-18 [facility] Comment on above: Order Comment: Speci men Type: BLOOD SPECIMENOrdering Facility: [facility] Address: [address] [place] [address] Performed By: #### 1 9123-9, 58420-7, 3083- ####[facility] [id number] [address] [place] AST [Catalytic activity/Vol] 18 U/L Normal 14-40 [facility] Comment on above: Order Comment: Speci men Type: BLOOD SPECIMENOrdering Facility: [facility] Address: [address] [place], [place] [address] Performed By: #### 1 9123-9, 08721-1, 3084-1 ####[facility] [id number] [place] [address] [place] Bilirubin [Mass/Vol] 0.5 mg/dL Normal 0.2-1.3 [facility] Comment on above: Order Comment: Speci men Type: BLOOD SPECIMENOrdering Facility: [facility] Address: [address] [place], [place] [address] Performed By: #### 1 9123-9, 91638-4, 3084-1 ####[facility] [id number] [place] [address] [place] Calcium [Mass/Vol] 9.4 mg/dL Normal 8.5-10.2 [facility] Comment on above: Order Comment: Speci men Type: BLOOD SPECIMENOrdering Facility: [facility] Address: [address] [place] [address] Performed By: #### 1 9123-9, 32200-2, 3084-1 ####[facility] [id number] [place] [address] [place] Chloride [Moles/Vol] 102 mmol/L Normal 97-105 [facility] Comment on above: Order Comment: Speci men Type: BLOOD SPECIMENOrdering Facility: [facility] Address: [address] [place], [place] [address] Performed By: #### 1 9123-9, 91685-4, 3084-1 ####[facility] [id number] [place] [address] [place] CO2 [Moles/Vol] 28 mmol/L Normal 22-30 [facility] Comment on above: Order Comment: Speci men Type: BLOOD SPECIMENOrdering Facility: [facility] Address: [address] [place], [place] [address] Performed By: #### 1 9123-9, 36060-5, 3084-1 ####[facility] [id number] [place] [address] [place] Creatinine [Mass/Vol] 1.12 mg/dL Normal 0.73-1.22 [facility] Comment on above: Order Comment: Speci men Type: BLOOD SPECIMENOrdering Facility: [facility] Address: [address] [place], [place] [address] Performed By: #### 1 9123-9, 63915-3, 308- ####[facility] [id number] [address] [place] ESTIMATED GLOMERULAR FILTRATION RATE 77 mL/min/1.73m??? Normal >=60 [facility] Comment on above: Order Comment: Aaliyah gibson Type: BLOOD SPECIMENOrdering Facility: [facility] Address: [address] [place] [address] Result Comment: Laurita mated Glomerular Filtration Rate [...] actual GFR. Performed By: #### 1 9123-9, 35279-1, 3083-03 ####[facility] [id number] [place] [address] [place] Glucose [Mass/Vol] 114 mg/dL High 74-99 [facility] Comment on above: Order Comment: Aaliyah gibson Type: BLOOD SPECIMENOrdering Facility: [facility] Address: [address] [place] [address] Result Comment: The [place] [employer] (ADA) provides guidance for cutoff [...] Standards of Medical Care in Diabetes 2016, [place] [employer]. Diabetes Care. 2016.39(Suppl 1). Performed By: #### 1 9123-9, 83106-2, 3083-03 ####[facility] [id number] [place] [address] [place] Potassium [Moles/Vol] 3.5 mmol/L Low 3.7-5.1 [facility] Comment on above: Order Comment: Speci men Type: BLOOD SPECIMENOrdering Facility: [facility] Address: [address] [place], [place] [id number] Performed By: #### 1 23-9, 45240-6, 3083- ####[facility] [id number] [place] [address] [place] Protein [Mass/Vol] 6.8 g/dL Normal 6.3-8.0 [facility] Comment on above: Order Comment: Speci men Type: BLOOD SPECIMENOrdering Facility: [facility] Address: [address] [place], [place] [id number] Performed By: #### 1 23-9, 10922-7, 3083-03 ####[facility] [id number] [place] [address] [place] Sodium [Moles/Vol] 140 mmol/L Normal 136-144 [facility] Comment on above: Order Comment: Speci men Type: BLOOD SPECIMENOrdering Facility: [facility] Address: [address] [place], [place] [address] Performed By: #### 1 23-9, 33138-0, 3083- ####[facility] [id number] [place] [address] [place] Urea nitrogen [Mass/Vol] 20 mg/dL Normal 9-24 [facility] Comment on above: Order Comment: Speci men Type: BLOOD SPECIMENOrdering Facility: [facility] Address: [address] [place], [place] [address] Performed By: #### 1 23-9, 82106-8, 3083-1 ####[facility] [id number] [place] [address] [place] Albumin [Mass/Vol] 4.0 g/dL 3.9 - 4.9 g/dL [facility] ALP [Catalytic activity/Vol] 57 U/L 38 - 113 U/L [facility] ALT [Catalytic activity/Vol] 26 U/L 10 - 54 U/L [facility] Anion gap [Moles/Vol] 10 mmol/L 9 - 18 mmol/L [facility] AST [Catalytic activity/Vol] 18 U/L 14 - 40 U/L [facility] Bilirubin [Mass/Vol] 0.5 mg/dL 0.2 - 1 .3 mg/dL [facility] Calcium [Mass/Vol] 9.4 mg/dL 8.5 - 10. 2 mg/dL [facility] Chloride [Moles/Vol] 102 mmol/L 97 - 10 5 mmol/L [facility] CO2 [Moles/Vol] 28 mmol/L 22 - 30 mmol/L [facility] Creatinine [Mass/Vol] 1.12 mg/dL 0.73 - 1.22 mg/dL [facility] Estimated Glomerular Filtration Rate 77 mL/min/1.73m >=60 mL/min/1.7 3m [facility] Glucose [Mass/Vol] 114 mg/dL High 74 - 99 mg/dL [facility] Potassium [Moles/Vol] 3.5 mmol/L Low 3.7 - 5.1 mmol/L [facility] Protein [Mass/Vol] 6.8 g/dL 6.3 - 8.0 g/dL [facility] Sodium [Moles/Vol] 140 mmol/L 136 - 144 mmol/L [facility] Urea nitrogen [Mass/Vol] 20 mg/dL 9 - 24 mg/dL [facility] LD LACTATE DEHYDROon 022 LDH [Catalytic activity/Vol] 201 U/L 135 - 225 U/L [facility] LDH SerPl-cCncon 07-21-2021 LDH [Catalytic activity/Vol] 201 U/L Normal 135-225 [facility] Comment on above: Order Comment: Speci men Type: BLOOD SPECIMENOrdering Facility: [facility] Address: [address] [place], [place] [address] Performed By: #### 2 532-0 ####[facility] [id number] [address] STATES OF [facility] MAGNESIUM BLDon 07-21-2021 Magnesium [Mass/Vol] 2.1 mg/dL 1.7 - 2 .3 mg/dL [facility] MRI BRAIN WO/W IVCONon 07-21 MRI BRAIN WO/W IVCON Normal [facility] Magnesium SerPl-mCncon 07-21 Magnesium [Mass/Vol] 2.1 mg/dL Normal 1.7-2.3 [facility] Comment on above: Order Comment: Aaliyah gibson Type: BLOOD SPECIMENOrdering Facility: [facility] Address: [address] [place] [address] Performed By: #### 1 9123-9, 40781-1, 3084-1 ####[facility] [id number] [address] STATES OF [facility] PHOSPHORUS INORGANICon 07-21 Phosphate [Mass/Vol] 3.9 mg/dL 2.7 - 4 .8 mg/dL [facility] PT panel Coag (PPP)on 2021 INR Coag (PPP) [Relative time] 1.0 {INR} Normal 0.9-1.3 [facility] Comment on above: Order Comment: Aaliyah gibson Type: BLOOD SPECIMENOrdering Facility: [facility] Address: [address] [place], [place] [phone] Result Comment: Constanza min K Antagonist (VKA) Therapeutic Range: INR 2 to 3 (Target INR of 2.5)Note: For patients treated with VKA drugs, such as warfarin, the [employer] [employer] 2012 Guideline recommends [...] al. Chest 2012, 141:7S-47SNishimura RA, et al. [facility] 2017, 70: 252-289 Performed By: #### 3 4528-0, 32984-5 ####[facility] [id number] [address] [place] PT Coag (PPP) [Time] 10.9 s Normal 9.7-13.0 [facility] Comment on above: Order Comment: Speci men Type: BLOOD SPECIMENOrdering Facility: [facility] Address: [address] [place] [address] Performed By: #### 3 4528-0, 10042-3 ####[facility] [id number] [address] [place] INR Coag (PPP) [Relative time] 1.0 {INR} 0.9 - 1.3 [facility] PT Coag (PPP) [Time] 10.9 s 9.7 - 1 3.0 sec [facility] Phosphate SerPl-mCncon 07-21 Phosphate [Mass/Vol] 3.9 mg/dL Normal 2.7-4.8 [facility] Comment on above: Order Comment: Speci men Type: BLOOD SPECIMENOrdering Facility: [facility] Address: [address] [place] [address] Performed By: #### 2 777-1 ####[facility] [id number] [place] [address] [place] T3 FREE BLDon 07-21-2021 Free T3 [Mass/Vol] 2.8 pg/mL Normal 2.3-4.1 [facility] Comment on above: Order Comment: Speci men Type: BLOOD SPECIMENOrdering Facility: [facility] Address: [address] [place] [address] Performed By: #### F T4, FREET3 ####[facility] [id number] [place] [address] [place] T4 FREE/FREE THYROXon 2021 Free T4 [Mass/Vol] 1.1 ng/dL Normal 0.9-1.7 [facility] Comment on above: Order Comment: Speci men Type: BLOOD SPECIMENOrdering Facility: [facility] Address: [address] [place], [place] [address] Performed By: #### F T4, FREET3 ####[facility] [id number] [place] [address] [place] TSH BLDon 07-21-2021 TSH Qn 2.120 m[IU]/L 0.270 - 4.200 mIU/L [facility] TSH SerPl-aCncon 07-21-2021 TSH Qn 2.120 m[IU]/L Normal 0.270-4.20 0 [facility] Comment on above: Order Comment: Speci men Type: BLOOD SPECIMENOrdering Facility: [facility] Address: [address] [place] [address] Performed By: #### 3 016-3 ####[facility] [id number] [place] [address] [place] URIC ACID BLOODon 07-21-2021 Urate [Mass/Vol] 8.3 mg/dL High 4.0 - 8.1 mg/dL [facility] Urate SerPl-mCncon Urate [Mass/Vol] 8.3 mg/dL High 4.0-8.1 [facility] Comment on above: Order Comment: Speci men Type: BLOOD SPECIMENOrdering Facility: [facility] Address: [address] [place], [place] [address] Performed By: #### 1 9123-9, 67225-1, 3084-1 ####[facility] [id number] [place] [address] [place] aPTT PPPon 07-21-2021 aPTT Coag (PPP) [Time] 29.1 s Normal 23.0-32.4 [facility] Comment on above: Order Comment: Speci men Type: BLOOD SPECIMENOrdering Facility: [facility] Address: [address] [place], [place] [phone] Performed By: #### 3 4528-0, 96298-1 ####[facility] LABCLIA [id number] [place] [address] [place] CNOVSPon 07-15-2021 CNOVSP Normal [facility] MRI KIDNEY WO/W IVCONon 05-1 MRI KIDNEY WO/W IVCON Invalid Interpretation Code [facility] CNOVSPon 07-14-2021 CNOVSP Normal [facility] CNPNon 07-11-2021 CNPN Normal [facility] CNNURSEon 07-08-2021 CNNURSE Normal [facility] CNPNon 07-07-2021 CNPN Normal [facility] CNOVSPon 07-02-2021 CNOVSP Normal [facility] BRIEF OP NOTon 07-01-2021 BRIEF OP NOT Normal [facility] CT BIOPSY CHEST WALLon 07-01 CT BIOPSY CHEST WALL Normal [facility] HISTORY PHYSICALon HISTORY PHYSICAL Normal [facility] NURSING PROGon 07-01-2021 NURSING PROG Normal [facility] PT EDon 07-01-2021 PT ED Normal [facility] SURGICAL PATHOLOGYon 022 CASE REPORT Normal [facility] Comment on above: Order Comment: Speci men Type: TISSUE SPECIMENOrdering Facility: [facility] Address: [address] [place], [place] [phone] Result Comment: Surg ical Pathology Report Case: [id number] Provider: Anne-Marie Chaparro MD Collected: 07/01/2021 08:31 AMOrdering Location: [facility] Received: 07/01/2021 01:44 PMPathologist: LAVINIA Hatchpecimen: SOFT TISSUE MASS BIOPSY, right chest wall mass - 4 passes, 4 cores Performed By: #### S ####[facility] LABCLIA [id number] [address] CLINICAL HISTORY right renal mass wit h right chest wall mass Normal [facility] Comment on above: Order Comment: Speci men Type: TISSUE SPECIMENOrdering Facility: [facility] Address: [address] [place] [address] Performed By: #### S ####[facility]CL[facility] [id number] [address] DIAGNOSIS COMMENT Normal [facility] Comment on above: Order Comment: Speci men Type: TISSUE SPECIMENOrdering Facility: [facility] Address: [address] [place] [address] Result Comment: Tumo r cells are strongly and diffusely positive for PAX-8, CAM 5.2 and CA9. The overall morphology and immunoprofile support the above diagnosis.Laboratory Developed Test (LDT) Disclaimer:Performance characteristics of immunohistochemical, immunofluorescent and chromogenic in-situ hybridization tests have been determined by the performing laboratory within [facility]???s Cipriano Leal [facility] Pathology and Laboratory Medicine [facility], [facility], [facility] or [facility]) in a manner consistent with CLIA requirements. One or more of these tests have not been cleared or approved by the FDA. [facility] is regulated under CLIA as qualified to perform high-complexity testing. These tests are used for clinical purposes. They should not be regarded as investigational or for research. Positive and negative controls stain appropriately. Performed By: #### S ####[facility]CL[facility] [id number] [address] FINAL DIAGNOSIS Normal [facility] Comment on above: Order Comment: Speci men Type: TISSUE SPECIMENOrdering Facility: [facility] Address: [address] [address] Result Comment: A. S oft tissue, right chest wall mass, core needle biopsy:- Metastatic renal cell carcinoma, clear cell type. See comment.CHRISTIANO/TERA/hi 07/04/2021 Performed By: #### S ####[facility] LABCLIA [id number] [address] OF [facility] FINAL PERFORMING LAB Normal [facility] Comment on above: Order Comment: Speci men Type: TISSUE SPECIMENOrdering Facility: [facility] Address: [address] [place] [address] Result Comment: Diag nostic interpretation performed at [facility], [address] [place] [address] CLIA# [id number] Director: Russ Madera M.D. Performed By: #### S ####[facility]IA [id number] [address] GROSS DESCRIPTION Normal [facility] Comment on above: Order Comment: Speci men Type: TISSUE SPECIMENOrdering Facility: [facility] Address: [address] [place] [address] Result Comment: A. S OFT TISSUE MASS BIOPSY.Received in formalin are multiple segments of cylindrical tissue 1.0 x 0.2 x 0.1 cm, short-red and of a friable consistency. Totally submitted in one cassette.HMM July 01, 2021 5:56 PMGross examination performed at [facility], [address] [place] [address] Performed By: #### S ####[facility] [id number] [address] [place] NM BONE WHOLE BODYon 022 NM BONE WHOLE BODY Normal [facility] PT panel Coag (PPP)on 2021 INR Coag (PPP) [Relative time] 1.0 {INR} Normal 0.9-1.3 [facility] Comment on above: Order Comment: Aaliyah gibson Type: BLOOD SPECIMENOrdering Facility: [facility] Address: [address] [place] [address] Result Comment: Constanza min K Antagonist (VKA) Therapeutic Range: INR 2 to 3 (Target INR of 2.5)Note: For patients treated with VKA drugs, such as warfarin, the [place] [employer] 2012 Guideline recommends [...] al. Chest 2012, 141:7S-47SNishimura RA, et al. [facility] 2017, 70: 252-289 Performed By: #### 3 4528-0 ####[facility] [id number] [place] [address] [place] PT Coag (PPP) [Time] 10.5 s Normal 9.7-13.0 [facility] Comment on above: Order Comment: Aaliyah gibson Type: BLOOD SPECIMENOrdering Facility: [facility] Address: [address] [place] [address] [place] [address] Performed By: #### 3 4528-0 ####[facility] [id number] [place] [address] [place] [address] ABD/PEL W IVCONon 022 CT ABD/PEL W IVCON Normal [facility] NURSING PROGon 06-25-2021 NURSING PROG Normal [facility] CNOVon 06-23-2021 CNOV Normal [facility] CNPNon 06-23-2021 CNPN Normal [facility] CNPTOUTREACHon 06-23-2021 CNPTOUTREACH Normal [facility] URINALYSIS, REFLEX MICROSCOP ICon 06-23-2021 Bilirubin Ql (U) Negative Negative [facility] Clarity (Unsp spec) Clear Clear [facility] Color (U) Yellow Yellow [facility] Glucose Test strip (U) [Mass/Vol] Negative Negative [facility] Hemoglobin Ql (U) Negative Negative [facility] Ketones Ql (U) Negative Negative [facility] Leukocyte esterase Test strip Ql (U) Negative Negative [facility] Nitrite Ql (U) Negative Negative [facility] pH (U) 6.5 [pH] 5.0 - 8.0 [facility] Protein (U) [Mass/Vol] Trace Abnormal Negative [facility] Specific gravity (U) [Rel density] 1.013 1.005 - 1.030 [facility] Urobilinogen Ql (U) Negative Negative [facility] Bilirubin Ql (U) Negative Normal Negative [facility] Comment on above: Order Comment: Speci men Type: URINE SPECIMENOrdering Facility: [facility] Address: [address] [place] [address] Performed By: #### L [id number] ####[facility] Q7CLIA [id number] [address] [place] Clarity (Unsp spec) Clear Normal Clear [facility] Comment on above: Order Comment: Speci men Type: URINE SPECIMENOrdering Facility: [facility] Address: [address] [place] [address] Performed By: #### L [id number] ####[facility] Q7CLIA [id number] [address] [place] Color (U) Yellow Normal Yellow [facility] Comment on above: Order Comment: Speci men Type: URINE SPECIMENOrdering Facility: [facility] Address: [address] [place] [address] Performed By: #### L [id number] ####[facility] Q7CLIA [id number] [address] Glucose Test strip (U) [Mass/Vol] Negative Normal Negative [facility] Comment on above: Order Comment: Speci men Type: URINE SPECIMENOrdering Facility: [facility] Address: [address] [place], [place] [address] Performed By: #### L [id number] ####[facility] Q7CLIA [id number] [place] [address] [place] Hemoglobin Ql (U) Negative Normal Negative [facility] Comment on above: Order Comment: Speci men Type: URINE SPECIMENOrdering Facility: [facility] Address: [address] [place], [place] [address] Performed By: #### L [id number] ####[facility] Q7CLIA [id number] [address] [place] Ketones Ql (U) Negative Normal Negative [facility] Comment on above: Order Comment: Speci men Type: URINE SPECIMENOrdering Facility: [facility] Address: [address] [place], [place] [address] Performed By: #### L [id number] ####[facility] Q7CLIA [id number] [address] STATES OF [facility] Leukocyte esterase Test strip Ql (U) Negative Normal Negative [facility] Comment on above: Order Comment: Speci men Type: URINE SPECIMENOrdering Facility: [facility] Address: [address] [place] [address] Performed By: #### L [id number] ####[facility] Q7CLIA [id number] [place] [address] [place] Nitrite Ql (U) Negative Normal Negative [facility] Comment on above: Order Comment: Speci men Type: URINE SPECIMENOrdering Facility: [facility] Address: [address] [place], [place] [address] Performed By: #### L [id number] ####[facility] Q7CLIA [id number] [address] pH (U) 6.5 [pH] Normal 5.0-8.0 [facility] Comment on above: Order Comment: Speci men Type: URINE SPECIMENOrdering Facility: [facility] Address: [address] [place] [address] Performed By: #### L [id number] ####[facility] Q7CLIA [id number] [address] Protein (U) [Mass/Vol] Trace Abnormal Negative [facility] Comment on above: Order Comment: Speci men Type: URINE SPECIMENOrdering Facility: [facility] Address: [address] [place] [address] Performed By: #### L [id number] ####[facility] Q7CLIA [id number] [address] Specific gravity (U) [Rel density] 1.013 Normal 1.005-1.03 0 [facility] Comment on above: Order Comment: Speci men Type: URINE SPECIMENOrdering Facility: [facility] Address: [address] [place] [address] Performed By: #### L [id number] ####[facility] Q7CLIA [id number] [address] Urobilinogen Ql (U) Negative Normal Negative [facility] Comment on above: Order Comment: Speci men Type: URINE SPECIMENOrdering Facility: [facility] Address: [address] [place] [address] Performed By: #### L [id number] ####[facility] Q7CLIA [id number] [address] [place] CBC W Auto Differential pane l (Bld)on 06-20-2021 Basophils (Bld) [#/Vol] 0.03 10*3/uL Normal <0.11 [facility] Comment on above: Order Comment: Speci men Type: BLOOD SPECIMENOrdering Facility: [facility] Address: [address] [place], [place] [address] Performed By: #### 5 7021-8 ####[facility] LABCLIA [id number] [address] [place] Basophils/100 WBC (Bld) 0.4 % Normal [facility] Comment on above: Order Comment: Speci men Type: BLOOD SPECIMENOrdering Facility: [facility] Address: [address] [place], [place] [address] Performed By: #### 5 7021-8 ####[facility] LABCLIA [id number] [place] [address] [place] Differential cell count method Nom (Bld) Auto Normal [facility] Comment on above: Order Comment: Speci men Type: BLOOD SPECIMENOrdering Facility: [facility] Address: [address] [place], [place] [address] Performed By: #### 5 7021-8 ####[facility] LABCLIA [id number] [place] [address] [place] Eosinophils (Bld) [#/Vol] 10*3/uL Normal <0.46 [facility] Comment on above: Order Comment: Speci men Type: BLOOD SPECIMENOrdering Facility: [facility] Address: [address] [place], [place] [address] Performed By: #### 5 7021-8 ####[facility] LABCLIA [id number] [address] [place] Eosinophils/100 WBC (Bld) 0.3 % Normal [facility] Comment on above: Order Comment: Speci men Type: BLOOD SPECIMENOrdering Facility: [facility] Address: [address] [place], [place] [address] Performed By: #### 5 7021-8 ####[facility] LABCLIA [id number] [address] [place] Erythrocyte distribution width (RBC) [Ratio] 14.8 % Normal 11.5-15.0 [facility] Comment on above: Order Comment: Speci men Type: BLOOD SPECIMENOrdering Facility: [facility] Address: [address] [place] [address] Performed By: #### 5 7021-8 ####[facility] LABIA [id number] [address] [place] Hematocrit (Bld) [Volume fraction] 48.7 % Normal 39.0-51.0 [facility] Comment on above: Order Comment: Speci men Type: BLOOD SPECIMENOrdering Facility: [facility] Address: [address] [place] [address] Performed By: #### 5 7021-8 ####[facility] LABIA [id number] [address] [place] Hemoglobin (Bld) [Mass/Vol] 15.6 g/dL Normal 13.0-17.0 [facility] Comment on above: Order Comment: Speci men Type: BLOOD SPECIMENOrdering Facility: [facility] Address: [address] [place] [address] Performed By: #### 5 7021-8 ####[facility] LABIA [id number] [address] [place] IMMATURE GRAN % 0.3 % Normal [facility] Comment on above: Order Comment: Speci men Type: BLOOD SPECIMENOrdering Facility: [facility] Address: [address] [place], [place] [address] Performed By: #### 5 7021-8 ####[facility] LABIA [id number] [address] [place] IMMATURE GRAN ABS <0.03 Normal <0.10 [facility] Comment on above: Order Comment: Speci men Type: BLOOD SPECIMENOrdering Facility: [facility] Address: [address] [place], [place] [address] Performed By: #### 5 7021-8 ####[facility] LABCLIA [id number] [address] [place] Lymphocytes (Bld) [#/Vol] 1.78 10*3/uL Normal 1.00-4.00 [facility] Comment on above: Order Comment: Speci men Type: BLOOD SPECIMENOrdering Facility: [facility] Address: [address] [place], [place] [address] Performed By: #### 5 7021-8 ####[facility] LABCLIA [id number] [address] [place] Lymphocytes/100 WBC (Bld) 26.6 % Normal [facility] Comment on above: Order Comment: Speci men Type: BLOOD SPECIMENOrdering Facility: [facility] Address: [address] [place], [place] [address] Performed By: #### 5 7021-8 ####[facility] LABIA [id number] [place] [address] [place] MCH (RBC) [Entitic mass] 29.4 pg Normal 26.0-34.0 [facility] Comment on above: Order Comment: Speci men Type: BLOOD SPECIMENOrdering Facility: [facility] Address: [address] [place] [address] Performed By: #### 5 7021-8 ####[facility] LABCLIA [id number] [place] [address] [place] MCHC (RBC) [Mass/Vol] 32.0 g/dL Normal 30.5-36.0 [facility] Comment on above: Order Comment: Speci men Type: BLOOD SPECIMENOrdering Facility: [facility] Address: [address] [place] [address] Performed By: #### 5 7021-8 ####[facility] LABCLIA [id number] [place] [address] [place] MCV (RBC) [Entitic vol] 91.9 fL Normal 80.0-100.0 [facility] Comment on above: Order Comment: Speci men Type: BLOOD SPECIMENOrdering Facility: [facility] Address: [address] [place], [place] [address] Performed By: #### 5 7021-8 ####[facility] LABIA [id number] [place] [address] [place] Monocytes (Bld) [#/Vol] 0.51 10*3/uL Normal <0.87 [facility] Comment on above: Order Comment: Speci men Type: BLOOD SPECIMENOrdering Facility: [facility] Address: [address] [place] [address] Performed By: #### 5 7021-8 ####[facility]IA [id number] [place] [address] [place] Monocytes/100 WBC (Bld) 7.6 % Normal [facility] Comment on above: Order Comment: Speci men Type: BLOOD SPECIMENOrdering Facility: [facility] Address: [address] [place], [place] [address] Performed By: #### 5 7021-8 ####[facility] [id number] [place] [address] [place] Neutrophils (Bld) [#/Vol] 4.34 10*3/uL Normal 1.45-7.50 [facility] Comment on above: Order Comment: Speci men Type: BLOOD SPECIMENOrdering Facility: [facility] Address: [address] [place], [place] [address] Performed By: #### 5 7021-8 ####[facility] [id number] [place] [address] [place] Neutrophils/100 WBC (Bld) 64.8 % Normal [facility] Comment on above: Order Comment: Speci men Type: BLOOD SPECIMENOrdering Facility: [facility] Address: [address] [place] [address] Performed By: #### 5 7021-8 ####[facility] [id number] [place] [address] [place] Nucleated RBC (Bld) [#/Vol] 10*3/uL Normal <0.01 [facility] Comment on above: Order Comment: Speci men Type: BLOOD SPECIMENOrdering Facility: [facility] Address: [address] [place], [place] [address] Performed By: #### 5 7021-8 ####[facility] [id number] [place] [address] [place] Nucleated RBC/100 WBC (Bld) [Ratio] 0.0 /100 WBC Normal [facility] Comment on above: Order Comment: Speci men Type: BLOOD SPECIMENOrdering Facility: [facility] Address: [address] [place], [place] [address] Performed By: #### 5 7021-8 ####[facility] [id number] [place] [address] [place] Platelet mean volume (Bld) [Entitic vol] 11.0 fL Normal 9.0-12.7 [facility] Comment on above: Order Comment: Speci men Type: BLOOD SPECIMENOrdering Facility: [facility] Address: [address] [place] [address] Performed By: #### 5 7021-8 ####[facility] [id number] [place] [address] [place] Platelets (Bld) [#/Vol] 268 10*3/uL Normal 150-400 [facility] Comment on above: Order Comment: Speci men Type: BLOOD SPECIMENOrdering Facility: [facility] Address: [address] [place], [place] [address] Performed By: #### 5 7021-8 ####[facility] [id number] [place] [address] [place] RBC (Bld) [#/Vol] 5.30 10*6/uL Normal 4.20-6.00 [facility] Comment on above: Order Comment: Speci men Type: BLOOD SPECIMENOrdering Facility: [facility] Address: [address] [place], [place] [address] Performed By: #### 5 7021-8 ####[facility]IA [id number] [place] [address] [place] WBC (Bld) [#/Vol] 6.70 10*3/uL Normal 3.70-11.00 [facility] Comment on above: Order Comment: Speci men Type: BLOOD SPECIMENOrdering Facility: [facility] Address: [address] [place], [place] [address] Performed By: #### 5 7021-8 ####[facility] [id number] [place] [address] [place] CNOVon 06-20-2021 CNOV Normal [facility] Comprehensive metabolic 2000 panelon 06-20-2021 Albumin [Mass/Vol] 4.2 g/dL Normal 3.9-4.9 [facility] Comment on above: Order Comment: Speci men Type: BLOOD SPECIMENOrdering Facility: [facility] Address: [address] [place], [place] [address] Performed By: #### 2 4323-8 ####[facility] [id number] [place] [address] [place] ALP [Catalytic activity/Vol] 52 U/L Normal 38-113 [facility] Comment on above: Order Comment: Speci men Type: BLOOD SPECIMENOrdering Facility: [facility] Address: [address] [place] [address] Performed By: #### 2 4323-8 ####[facility] LABCLIA [id number] [place] [address] [place] ALT [Catalytic activity/Vol] 17 U/L Normal 10-54 [facility] Comment on above: Order Comment: Speci men Type: BLOOD SPECIMENOrdering Facility: [facility] Address: [address] [place], [place] [address] Performed By: #### 2 4323-8 ####[facility] LABCLIA [id number] [place] [address] [place] Anion gap [Moles/Vol] 12 mmol/L Normal 9-18 [facility] Comment on above: Order Comment: Speci men Type: BLOOD SPECIMENOrdering Facility: [facility] Address: [address] [place], [place] [address] Performed By: #### 2 4323-8 ####[facility] LABCLIA [id number] [place] [address] [place] AST [Catalytic activity/Vol] 18 U/L Normal 14-40 [facility] Comment on above: Order Comment: Speci men Type: BLOOD SPECIMENOrdering Facility: [facility] Address: [address] [place], [place] [address] Performed By: #### 2 4323-8 ####[facility] LABCLIA [id number] [place] [address] [place] Bilirubin [Mass/Vol] 0.5 mg/dL Normal 0.2-1.3 [facility] Comment on above: Order Comment: Speci men Type: BLOOD SPECIMENOrdering Facility: [facility] Address: [address] [place], [place] [address] Performed By: #### 2 4323-8 ####[facility] LABCLIA [id number] [place] [address] [place] Calcium [Mass/Vol] 9.8 mg/dL Normal 8.5-10.2 [facility] Comment on above: Order Comment: Speci men Type: BLOOD SPECIMENOrdering Facility: [facility] Address: [address] [place], [place] [address] Performed By: #### 2 4323-8 ####[facility] LABCLIA [id number] [place] [address] [place] Chloride [Moles/Vol] 101 mmol/L Normal 97-105 [facility] Comment on above: Order Comment: Speci men Type: BLOOD SPECIMENOrdering Facility: [facility] Address: [address] [place], [place] [address] Performed By: #### 2 4323-8 ####[facility] LABCLIA [id number] [place] [address] [place] CO2 [Moles/Vol] 28 mmol/L Normal 22-30 [facility] Comment on above: Order Comment: Speci men Type: BLOOD SPECIMENOrdering Facility: [facility] Address: [address] [place], [place] [address] Performed By: #### 2 4323-8 ####[facility] LABCLIA [id number] [place] [address] [place] Creatinine [Mass/Vol] 1.12 mg/dL Normal 0.73-1.22 [facility] Comment on above: Order Comment: Speci men Type: BLOOD SPECIMENOrdering Facility: [facility] Address: [address] [place], [place] [address] Performed By: #### 2 4323-8 ####[facility] LABCLIA [id number] [place] [address] [place] ESTIMATED GLOMERULAR FILTRATION RATE 77 mL/min/1.73m??? Normal >=60 [facility] Comment on above: Order Comment: Speci men Type: BLOOD SPECIMENOrdering Facility: [facility] Address: [address] [place] [phone] Result Comment: Laurita mated Glomerular Filtration Rate [...] actual GFR. Performed By: #### 2 4323-8 ####[facility] LABCLIA [id number] [place] [address] [place] Glucose [Mass/Vol] 87 mg/dL Normal 74-99 [facility] Comment on above: Order Comment: Aaliyah gibson Type: BLOOD SPECIMENOrdering Facility: [facility] Address: [address] [place] [address] Result Comment: The [place] Diabetes Association (ADA) provides guidance for cutoff [...] Standards of Medical Care in Diabetes 2016, [place] [employer] Association. Diabetes Care. 2016.39(Suppl 1). Performed By: #### 2 4323-8 ####[facility] LABCLIA [id number] [place] [address] [place] Potassium [Moles/Vol] 3.8 mmol/L Normal 3.7-5.1 [facility] Comment on above: Order Comment: Aaliyah gibson Type: BLOOD SPECIMENOrdering Facility: [facility] Address: [address] [phone] Performed By: #### 2 4323-8 ####[facility] LABCLIA [id number] [place] [address] [place] Protein [Mass/Vol] 7.3 g/dL Normal 6.3-8.0 [facility] Comment on above: Order Comment: Speci men Type: BLOOD SPECIMENOrdering Facility: [facility] Address: [address] [place] [address] Performed By: #### 2 4323-8 ####[facility]IA [id number] [place] [address] [place] Sodium [Moles/Vol] 141 mmol/L Normal 136-144 [facility] Comment on above: Order Comment: Speci men Type: BLOOD SPECIMENOrdering Facility: [facility] Address: [address] [place] [address] Performed By: #### 2 4323-8 ####[facility] LABCLIA [id number] [place] [address] [place] Urea nitrogen [Mass/Vol] 12 mg/dL Normal 9-24 [facility] Comment on above: Order Comment: Speci men Type: BLOOD SPECIMENOrdering Facility: [facility] Address: [address] [place] [address] Performed By: #### 2 4323-8 ####[facility]IA [id number] [place] [address] [place] ALC ETHANOLon 06-19-2021 ALC ETHANOL < 3.0 Normal <10.0 [facility] Comment on above: Order Comment: CONSE RVATION Result Comment: UNCO NFIRMED Toxicology results. For MEDICAL purposes only. Performed By: #### L 500.75337, L500.10280, L500.34479 ####Test performed at: [facility] [address] [place] [address] ALT SerPl w P-5'-P-cCncOrder ed By: Siri Harris on 06-19-2021 ALT With P-5'-P [Catalytic activity/Vol] 23 U/L 13-61 [facility] AST SerPl w P-5'-P-cCncOrder ed By: Siri Harris on 06-19-2021 AST With P-5'-P [Catalytic activity/Vol] 16 U/L 15-37 [facility] Albumin SerPl-mCncOrdered By : Siri Harris on 06-19-2021 Albumin [Mass/Vol] 3.4 g/dL 3.4-5.0 [facility] BUN SerPl-mCncOrdered By: Natty Harris on 06-19-2021 Urea nitrogen [Mass/Vol] 16 mg/dL 7-18 [facility] Basophils Auto (Bld) [#/Vol] Ordered By: Siri Harris on 06-19-2021 Basophils (Bld) [#/Vol] 0.0 10*3/uL 0.0-0.2 [facility] Basophils/100 WBC Auto (Bld) Ordered By: Siri Harris on 06-19-2021 Basophils/100 WBC (Bld) 0.5 % S [facility] CBC W/DIFFon 06-19-2021 BASO ABS 0.0 K/uL Normal 0.0-0.2 [facility] Comment on above: Order Comment: CONSE RVATION Performed By: #### L 200.98079 #### Test performed at: [address] [address] Basophils/100 WBC (Bld) 0.5 % Normal [facility] Comment on above: Order Comment: CONSE RVATION Performed By: #### L 200.62764 #### Test performed at: [address] [address] EOS ABS 0.1 K/uL Normal 0.0-0.5 [facility] Comment on above: Order Comment: CONSE RVATION Performed By: #### L 200.22416 #### Test performed at: [address], [place] [address] Eosinophils/100 WBC (Bld) 0.6 % Normal [facility] Comment on above: Order Comment: CONSE RVATION Performed By: #### L 200.17378 #### Test performed at: [address] [address] Erythrocyte distribution width (RBC) [Ratio] 14.8 % High 11.5-14.5 [facility] Comment on above: Order Comment: CONSE RVATION Performed By: #### L 200.02314 #### Test performed at: [address] [address] Hematocrit (Bld) [Volume fraction] 43.8 % Normal 39.0-55.0 [facility] Comment on above: Order Comment: CONSE RVATION Performed By: #### L 200.32434 #### Test performed at: [address] [address] Hemoglobin (Bld) [Mass/Vol] 14.9 g/dL Normal 14.0-16.5 [facility] Comment on above: Order Comment: CONSE RVATION Performed By: #### L 200.25099 #### Test performed at: [address] [address] IG % 0.4 % Normal [facility] Comment on above: Order Comment: CONSE RVATION Performed By: #### L 200.55157 #### Test performed at: [address] [address] IG ABS 0.03 K/uL Normal 0-0.05 [facility] Comment on above: Order Comment: CONSE RVATION Performed By: #### L 200.11688 #### Test performed at: [address] [address] Lymphocytes (Bld) [#/Vol] 2.0 10*3/uL Normal 1.2-3.5 [facility] Comment on above: Order Comment: CONSE RVATION Performed By: #### L 200.63674 #### Test performed at: [address] [address] Lymphocytes/100 WBC (Bld) 25.2 % Normal [facility] Comment on above: Order Comment: CONSE RVATION Performed By: #### L 200.82587 #### Test performed at: [address] [address] MCH (RBC) [Entitic mass] 30.2 pg Normal 25.4-34.6 [facility] Comment on above: Order Comment: CONSE RVATION Performed By: #### L 200.08014 #### Test performed at: [address] [address] MCHC (RBC) [Mass/Vol] 34.0 g/dL Normal 31.5-36.5 [facility] Comment on above: Order Comment: CONSE RVATION Performed By: #### L 200.54120 #### Test performed at: [address] [address] MCV (RBC) [Entitic vol] 88.7 fL Normal 80.0-100.0 [facility] Comment on above: Order Comment: CONSE RVATION Performed By: #### L 200.43460 #### Test performed at: [address] [address] MONO ABS 0.7 K/uL Normal 0.0-1.0 [facility] Comment on above: Order Comment: CONSE RVATION Performed By: #### L 200.07127 #### Test performed at: [address] [address] Monocytes/100 WBC (Bld) 9.4 % Normal [facility] Comment on above: Order Comment: CONSE RVATION Performed By: #### L 200.08026 #### Test performed at: [address] [address] NEUTROPHIL ABS 4.9 K/uL Normal 1.4-6.6 [facility] Comment on above: Order Comment: CONSE RVATION Performed By: #### L 200.74147 #### Test performed at: [address] [address] Neutrophils/100 WBC (Bld) 63.9 % Normal [facility] Comment on above: Order Comment: CONSE RVATION Performed By: #### L 200.46470 #### Test performed at: [address] [address] NRBC # 0.000 K/uL Normal 0-0.012 [facility] Comment on above: Order Comment: CONSE RVATION Performed By: #### L 200.25854 #### Test performed at: [address] [address] NRBC % 0.0 /100 WBC Normal 0-0.2 [facility] Comment on above: Order Comment: CONSE RVATION Performed By: #### L 200.59096 #### Test performed at: [address] [address] Platelet mean volume (Bld) [Entitic vol] 10.1 fL Normal 8.7-12.4 [facility] Comment on above: Order Comment: CONSE RVATION Performed By: #### L 200.06727 #### Test performed at: [address] [address] Platelets (Bld) [#/Vol] 245 10*3/uL Normal 140-440 [facility] Comment on above: Order Comment: CONSE RVATION Performed By: #### L 200.18950 #### Test performed at: [address] [address] RBC (Bld) [#/Vol] 4.94 10*6/uL Normal 3.5-5.5 [facility] Comment on above: Order Comment: CONSE RVATION Performed By: #### L 200.43672 #### Test performed at: [address] [address] WBC (Bld) [#/Vol] 7.7 10*3/uL Normal 3.9-11.0 [facility] Comment on above: Order Comment: CONSE RVATION Performed By: #### L 200.09646 #### Test performed at: [address] [address] CO2 SerPl-sCncOrdered By: Natty Harris on 06-19-2021 CO2 [Moles/Vol] 29 mmol/L 21-32 [facility] COMP META PANELon 06-19-2021 Albumin [Mass/Vol] 3.4 g/dL Normal 3.4-5.0 [facility] Comment on above: Order Comment: CONSE RVATION Performed By: #### L 500.60087, L500.20851, L500.44769 #### Test performed at: [address] [address] ALK PHOS TOTAL 58 U/L Normal 45-117 [facility] Comment on above: Order Comment: CONSE RVATION Performed By: #### L 500.75322, L500.26069, L500.33847 #### Test performed at: [address] [address] ALT [Catalytic activity/Vol] 23 U/L Normal 13-61 [facility] Comment on above: Order Comment: CONSE RVATION Performed By: #### L 500.54525, L500.29971, L500.89935 #### Test performed at: [address] [address] AST [Catalytic activity/Vol] 16 U/L Normal 15-37 [facility] Comment on above: Order Comment: CONSE RVATION Performed By: #### L 500.05852, L500.86216, L500.75219 #### Test performed at: [address] [address] BILI TOTAL 0.4 mg/dL Normal 0.2-1.0 [facility] Comment on above: Order Comment: CONSE RVATION Performed By: #### L 500.87065, L500.03901, L500.96654 #### Test performed at: [address] [address] Calcium [Mass/Vol] 9.0 mg/dL Normal 8.5-10.1 [facility] Comment on above: Order Comment: CONSE RVATION Performed By: #### L 500.31408, L500.80620, L500.82083 #### Test performed at: [address] [address] Chloride [Moles/Vol] 107 mmol/L Normal 98-107 [facility] Comment on above: Order Comment: CONSE RVATION Performed By: #### L 500.30546, L500.60731, L500.12849 #### Test performed at: [address] [address] CO2 [Moles/Vol] 29 mmol/L Normal 21-32 [facility] Comment on above: Order Comment: CONSE RVATION Performed By: #### L 500.41809, L500.18382, L500.90061 #### Test performed at: [address] [address] Creatinine [Mass/Vol] 1.290 mg/dL Normal 0.700- 1.30 0 [facility] Comment on above: Order Comment: CONSE RVATION Performed By: #### L 500.67089, L500.59292, L500.63128 #### Test performed at: [address] [address] Glucose [Mass/Vol] 91 mg/dL Normal 70-99 [facility] Comment on above: Order Comment: CONSE RVATION Result Comment: Fast ing GLUCOSE reference range has been updated per (ADA) [place] [employer] Association's recommendation. 05/31/2018 Performed By: #### L 500.47151, L500.37352, L500.33563 #### Test performed at: [address] [address] Potassium [Moles/Vol] 3.5 mmol/L Normal 3.5-5.1 [facility] Comment on above: Order Comment: CONSE RVATION Performed By: #### L 500.05343, L500.88385, L500.32962 #### Test performed at: [address] [address] Protein [Mass/Vol] 6.9 g/dL Normal 6.4-8.2 [facility] Comment on above: Order Comment: CONSE RVATION Performed By: #### L 500.88419, L500.15316, L500.44594 #### Test performed at: [address] [address] Sodium [Moles/Vol] 140 mmol/L Normal 136-145 [facility] Comment on above: Order Comment: CONSE RVATION Performed By: #### L 500.78729, L500.85788, L500.38779 #### Test performed at: [address] [address] Urea nitrogen [Mass/Vol] 16 mg/dL Normal 7-18 [facility] Comment on above: Order Comment: CONSE RVATION Performed By: #### L 500.45512, L500.04499, L500.01868 #### Test performed at: [address] [address] [address] ANG THORAX WCON PE PROTOC OLon 06-19-2021 CT ANG THORAX WCON PE PROTOCOL STUDY: CT ANG THORAX WCON PE PROTOCOL; 06/19/2021 6:00 pm INDICATION: high dimer. COMPARISON: Chest x-ray 06/19/2021. ACCESSION NUMBER(S): [id number] ORDERING CLINICIAN: Siri Harris TECHNIQUE: Helical data [...] at 6:47 pm with readback verification. Normal [facility] CT HEAD/BRAIN WO CONon 06-19 CT HEAD/BRAIN WO CON STUDY: CT HEAD/BRAIN WO CON; 06/19/2021 6:00 pm INDICATION: htn. COMPARISON: CT scan of the head 09/09/2016 ACCESSION NUMBER(S): [id number] ORDERING CLINICIAN: Siri Harris TECHNIQUE: Axial noncontrast [...] Stable chronic changes as described above. Normal [facility] Calcium SerPl-mCncOrdered By : Siri Harirs on 06-19-2021 Calcium [Mass/Vol] 9.0 mg/dL 8.5-10.1 [facility] D dimer FEU PPP-mCncOrdered By: Siri Harris on 06-19-2021 Fibrin D-dimer FEU (PPP) [Mass/Vol] 1020.82 <500 [facility] Comment on above: The CUT-OFF value fo r the evaluation of VenousThromboEmbolism (VTE) is <500 ng/mL FEU. D-DIMER QUANTon 06-19-2021 D-DIMER QUANT 1020.82 ng/mLFEU High <500 [facility] Comment on above: Order Comment: CONSE RVATION Result Comment: The CUT-OFF value for the evaluation of Venous ThromboEmbolism (VTE) is <500 ng/mL FEU. Performed By: #### L 300.83351 #### Test performed at: [place] [address] ED Provider Reporton 022 ED Provider Report [facility] Pt Name: YEFRI YANEZ MR#: [id number] [address] [place] [address] ACCT: [id number] : 63 EMERGENCY PROVIDER REPORT ADM Date: [...] History Past Medical History Reports HTN, Denies [place], Denies COPD, Denies Asthma Past Med Hx [...] 23 Mallory (more content not included)... Normal [facility] EKGon 06-19-2021 Electrocardiogram Acquired on 06/20/19 [...] PM Referred By: Confirmed By:FILEMON LEYVA MD [id number] 2021 -------- [facility] PT NAME: YEFRI YANEZ MR#: [id number] [address] [place] [address] ACCT: [id number] : 63 EKG REPORT Normal [facility] Eosinophils Auto (Bld) [#/Vo l]Ordered By: Siri Harris on 06-19-2021 Eosinophils (Bld) [#/Vol] 0.1 10*3/uL 0.0-0.5 [facility] Eosinophils/100 WBC Auto (Bl d)Ordered By: Siri Harris on 06-19-2021 Eosinophils/100 WBC (Bld) 0.6 % [facility] Erythrocyte distribution wid th Auto (RBC) [Ratio]Ordered By: Siri Harris on 06-19-2021 Erythrocyte distribution width (RBC) [Ratio] 14.8 % 11.5-14.5 [facility] GFR ESTIMATEon 06-19-2021 IF AMER > 60 Normal > 60 [facility] Comment on above: Order Comment: [...] for clinical interpretation. Performed By: #### L 500.25683, L500.37317, L500.97541 ####Test performed at: [place] [address] IF non-AFR AMER 57 Low > 60 [facility] Comment on above: Order Comment: CONSE RVATION Performed By: #### L 500.21332, L500.78485, L500.87156 ####Test performed at: [place] [address] GFR/BSA.pred SerPlBld-ArVRat Ordered By: Siri Harris on 06-19-2021 GFR/1.73 sq M.predicted (S/P/Bld) [Vol rate/Area] 57 mL/min > 60 [facility] GFR/1.73 sq M.predicted (S/P/Bld) [Vol rate/Area] mL/min > 60 [facility] Comment on above: eGFR (Estimated GFR) Units of measure:mL/min/1.73 meters sq. *CALCULATION REVISED 12/25/2014;IDMS-traceable MDRD equationeGFR is derived from the reexpressed MDRD Study equationusing the following parameters: serum creatinine, age,gender and race. An eGFR<60 mL/min/1.73m2 for >3 monthsis consistent with chronic kidney disease. Refer to KDOQIguidelines for clinical interpretation. GLUCOSE METERon 06-19-2021 Glucose [Mass/Vol] 91 mg/dL Normal 70-99 [facility] Comment on above: Order Comment: CONSE RVATION Result Comment: Fast ing GLUCOSE reference range has been updated per (ADA) [place] [employer]'s recommendation. 05/31/2018 Performed By: #### L 500.46773 #### Test performed at: [address] [address] Glucose (BldC) [Mass/Vol]Ord ered By: Siri Harris on 06-19-2021 Glucose [Mass/Vol] 91 mg/dL 70-99 [facility] Comment on above: Fasting GLUCOSE refe rence range has been updated per (ADA)[place] Diabetes Association's recommendation. 05/31/2018 Hematocrit Auto (Bld) [Volum e fraction]Ordered By: Siri Harris on 06-19-2021 Hematocrit (Bld) [Volume fraction] 43.8 % 39.0-55.0 [facility] Hgb Bld-mCncOrdered By: Siri Harris on 06-19-2021 Hemoglobin (Bld) [Mass/Vol] 14.9 g/dL 14.0-16.5 [facility] Immature granulocytes Auto ( Bld) [#/Vol]Ordered By: Siri Harris on 06-19-2021 Immature granulocytes (Bld) [#/Vol] 0.03 10*3/uL 0-0.05 [facility] Immature granulocytes/100 WB C Auto (Bld)Ordered By: Siri Harris on 06-19-2021 Immature granulocytes/100 WBC (Bld) 0.4 % [facility] Laboratory - Chemistry and C hemistry - challengeOrdered By: Siri Harris on 06-19-2021 ALP [Catalytic activity/Vol] 58 U/L 45-117 [facility] Bilirubin [Mass/Vol] 0.4 mg/dL 0.2-1.0 [facility] Chloride [Moles/Vol] 107 mmol/L 98-107 [facility] Creatinine [Mass/Vol] 1.290 mg/dL 0.700- 1.30 0 [facility] Glucose [Mass/Vol] 91 mg/dL 70-99 [facility] [facility] Comment on above: Fasting GLUCOSE refe rence range has been updated per (ADA)[place] [employer]'s recommendation. 05/31/2018 Potassium [Moles/Vol] 3.5 mmol/L 3.5-5.1 [facility] Sodium [Moles/Vol] 140 mmol/L 136-145 [facility] Lymphocytes Auto (Bld) [#/Vo l]Ordered By: Siri Harris on 06-19-2021 Lymphocytes (Bld) [#/Vol] 2.0 10*3/uL 1.2-3.5 [facility] Lymphocytes/100 WBC Auto (Bl d)Ordered By: Siri Harris on 06-19-2021 Lymphocytes/100 WBC (Bld) 25.2 % [facility] MCH Auto (RBC) [Entitic mass ]Ordered By: Siri Harris on 06-19-2021 MCH (RBC) [Entitic mass] 30.2 pg 25.4-34.6 [facility] MCHC Auto (RBC) [Mass/Vol]Or dered By: Siri Harris on 06-19-2021 MCHC (RBC) [Mass/Vol] 34.0 g/dL 31.5-36.5 [facility] MCV Auto (RBC) [Entitic vol] Ordered By: Siri Harris on 06-19-2021 MCV (RBC) [Entitic vol] 88.7 fL 80.0-100.0 [facility] Monocytes Auto (Bld) [#/Vol] Ordered By: Siri Harris on 06-19-2021 Monocytes (Bld) [#/Vol] 0.7 10*3/uL 0.0-1.0 [facility] Monocytes/100 WBC Auto (Bld) Ordered By: Siri Harris on 06-19-2021 Monocytes/100 WBC (Bld) 9.4 % [facility] Neutrophils Auto (Bld) [#/Vo l]Ordered By: Siri Harris on 06-19-2021 Neutrophils (Bld) [#/Vol] 4.9 10*3/uL 1.4-6.6 [facility] Neutrophils/100 WBC Auto (Bl d)Ordered By: Siri Harris on 06-19-2021 Neutrophils/100 WBC (Bld) 63.9 % [facility] No Panel InformationOrdered By: Siri Harris on 06-19-2021 Serum Alcohol < 3.0 <10.0 [facility] Comment on above: UNCONFIRMED Toxicolo gy results. For MEDICAL purposes only. Nucleated RBC Auto (Bld) [#/ Vol]Ordered By: Siri Harris on 06-19-2021 Nucleated RBC (Bld) [#/Vol] 0.000 10*3/uL 0-0.012 [facility] Nucleated RBC/100 WBC Auto ( Bld) [Ratio]Ordered By: Siri Harris on 06-19-2021 Nucleated RBC/100 WBC (Bld) [Ratio] 0.0 % 0-0.2 [facility] PORTABLE CHESTon 06-19-2021 PORTABLE CHEST STUDY: PORTABLE CHEST; 06/19/2021 5:15 pm INDICATION: sob. COMPARISON: None. ACCESSION NUMBER(S): [id number] ORDERING CLINICIAN: Siri Harris FINDINGS: There is cardiomegaly. There is a large mass in the right lateral thorax. No significant pleural effusion. No pneumothorax. IMPRESSION: Large mass in the right lateral thorax; CT chest is recommended for further evaluation. Normal [facility] Platelet mean volume Auto (B ld) [Entitic vol]Ordered By: Siri Harris on 06-19-2021 Platelet mean volume (Bld) [Entitic vol] 10.1 fL 8.7-12.4 [facility] Platelets Auto (Bld) [#/Vol] Ordered By: Siri Harris on 06-19-2021 Platelets (Bld) [#/Vol] 245 10*3/uL 140-440 [facility] Prot SerPl-mCncOrdered By: Tangela Harris on 06-19-2021 Protein [Mass/Vol] 6.9 g/dL 6.4-8.2 [facility] RBC Auto (Bld) [#/Vol]Ordere d By: Siri Harris on 06-19-2021 RBC (Bld) [#/Vol] 4.94 10*6/uL 3.5-5.5 [facility] TROPONIN QUANTon 06-19-2021 TROP HIGH SENS 30.2 ng/L Normal [facility] Comment on above: Order Comment: CONSE RVATION Result Comment: Yaakov quijano /(Interpretation): Initial High Sensitivity Troponin (0 Hours) {< or = 78.5 ng/L (MALE)} OR {< or = 53.7 ng/L (FEMALE)}: Repeat after 1-2 hrs (from blood draw time,not result release) If at 1-2 hours, <50% change (increase or decrease is noted) R/O Gkx-CB-Johvvvrpy Myocardial Infarction. If there's more than 50% change plus any of the following: Typical symptoms or ECHO or EKG or CATH findings suggestive of ischemia, then Possible Rule IN Ilk-SW-Vxzbtjoiu Myocardial Infarction Initial High Sensitivity Troponin (0 Hours) >78.5 ng/L (MALE) OR >53.7 ng/L (FEMALE): Repeat after 1-2 hrs (from blood draw time,not result release) If at 1-2 hours, <20% change (increase or decrease is noted) Rule Out Lcq-ON-Vactxihqj Myocardial Infarction If there's more than 20% change plus any of the following: Typical symptoms or ECHO or EKG or CATH findings suggestive of ischemia, then Possible Rule IN Gex-UD-Ptwbdylsl Myocardial Infarction Performed By: #### L [id number] #### Test performed at: [place] [address] Troponin T SerPl HS-mCncOrde red By: Siri Harris on 06-19-2021 Troponin T.cardiac High sensitivity method [Mass/Vol] 30.2 [facility] Comment on above: Algorithm /(Interpre tation):Initial High Sensitivity Troponin (0 Hours){< or = 78.5 ng/L (MALE)} OR {< or = 53.7 ng/L (FEMALE)}: Repeat after 1-2 hrs (from blood draw time,not resultrelease)If at 1-2 hours, <50% change (increase or decrease is noted)R/O Xto-FG-Fsaesonvj Myocardial Infarction.If there's more than 50% change plus any of the following:Typical symptoms or ECHO or EKG or CATH findings suggestiveof ischemia, thenPossible Rule IN Xlu-CC-Tztvzmpwm Myocardial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 [facility] 05-18-2022 17:18-0400 Systolic blood pressure 145 mm[Hg] Dr. Jose Ramon Turner Work Phone: [facility] 05-18-2022 14:59-0400 Body height 180.[address] Jose Ramon Turner Work Phone: [facility] 05-18-2022 14:59-0400 Body mass index (BMI) [Ratio] 38.6 kg/m2 Dr. Jose Ramon Turner Work Phone: [facility] 05-18-2022 14:59-0400 Body weight 125.[address] Jose Ramon Turner Work Phone: [facility] 04-16-2022 13:54-0500 Body temperature 97.7 [degF] Dr. Jose Ramon Turner Work Phone: [facility] 04-16-2022 13:54-0500 Diastolic blood pressure 88 mm[Hg] Dr. Jose Ramon Turner Work Phone: [facility] 04-16-2022 13:54-0500 Heart rate 98 /min Dr. Jose Ramon Turner Work Phone: [facility] 04-16-2022 13:54-0500 Respiratory rate 18 /min Dr. Jose Ramon Turner Work Phone: [facility] 04-16-2022 13:54-0500 SaO2% (BldA) [Mass fraction] 94 % Dr. Jose Ramon Turner Work Phone: [facility] 04-16-2022 13:54-0500 Systolic blood pressure 120 mm[Hg] Dr. Jose Ramon Turner Work Phone: [facility] 04-16-2022 09:58-0500 Inhaled oxygen flow rate 0 L/min Dr. Jose Ramon Turner Work Phone: [facility] 04-16-2022 06:00-0500 Body weight 121.[address] Jose Ramon Turner Work Phone: [facility] 04-16-2022 04:00-0500 Inhaled oxygen concentration 32 % Dr. Jose Ramon Turner Work Phone: [facility] 04-14-2022 10:03-0500 Body height 177.[address] Jose Ramon Turner Work Phone: [facility] 04-14-2022 01:15-0500 Body mass index (BMI) [Ratio] 38.5 kg/m2 Dr. Jose Ramon Turner Work Phone: [facility] 04-14-2022 00:37-0500 Body temperature 97.1 [degF] [facility] 04-14-2022 00:37-0500 Diastolic blood pressure 82 mm[Hg] [facility] 04-14-2022 00:37-0500 Heart rate 102 /min [facility] 04-14-2022 00:37-0500 Inhaled oxygen flow rate 2 L/min [facility] 04-14-2022 00:37-0500 Respiratory rate 22 /min [facility] 04-14-2022 00:37-0500 SaO2% (BldA) [Mass fraction] 100 % [facility] 04-14-2022 00:37-0500 Systolic blood pressure 116 mm[Hg] [facility] 04-13-2022 21:17-0500 Body height 180.34 cm [facility] 04-13-2022 21:17-0500 Body mass index (BMI) [Ratio] 35.8 kg/m2 [facility] 04-13-2022 21:17-0500 Body weight 116.57 kg [facility] 04-03-2022 10:31-0500 Body height 177.8 cm Daksha Turner Work Phone: [facility] [employer] 400 DO Work Phone: 04-03-2022 10:31-0500 Body mass index (BMI) [Ratio] 38.63 kg/m2 Daksha Turner Work Phone: [facility] [employer] 400 DO Work Phone: 04-03-2022 10:31-0500 Body surface area Derived from formula 2.37 m2 Daksha Turner Work Phone: [employer]Wbnorjx-Rybvsw [employer] 400 DO Work Phone: 04-03-2022 10:31-0500 Body temperature 97.6 [degF] Daksha Turner Work Phone: [employer]Pztsusy[employer]Fodfzz [employer] [facility] 400 DO Work Phone: 04-03-2022 10:31-0500 Body weight 122.13 kg Kimoela Turner Work Phone: PD[employer]Xaelpod-Crpwoe [employer] [facility] 400 DO Work Phone: 04-03-2022 10:31-0500 Diastolic blood pressure 73 mm[Hg] Daksha Gary Johnny Work Phone: AH-Vxlqarp-Yvwgwx [employer] [facility] 400 DO Work Phone: 04-03-2022 10:31-0500 Heart rate 123 /min Daksha Gary Johnny Work Phone: ZU[employer]Nvhtisf[employer]Gtbtes [employer] [facility] 400 DO Work Phone: 04-03-2022 10:31-0500 Systolic blood pressure 111 mm[Hg] Daksha Gary Johnny Work Phone: XE-Zdepfjg-Pniutw ke [facility] 400 DO Work Phone: 03-11-2022 13:10-0500 Body weight 118.84 kg Haylee Wilburn MD Work Phone: [facility] 03-11-2022 13:10-0500 Diastolic blood pressure 84 mm[Hg] Haylee Wilburn MD Work Phone: [facility] 03-11-2022 13:10-0500 Heart rate 78 /min aHylee Wilburn MD Work Phone: [facility] 03-11-2022 13:10-0500 Respiratory rate 16 /min Haylee Wilburn MD Work Phone: [facility] 03-11-2022 13:10-0500 Systolic blood pressure 134 mm[Hg] Haylee Wilburn MD Work Phone: [facility] 02-17-2022 11:30-0500 Body weight 114.76 kg Haylee Wilburn MD Work Phone: [facility] 02-17-2022 11:30-0500 Diastolic blood pressure 74 mm[Hg] Haylee Wilburn MD Work Phone: [facility] 02-17-2022 11:30-0500 Heart rate 72 /min Haylee Wilburn MD Work Phone: [facility] 02-17-2022 11:30-0500 Respiratory rate 16 /min Haylee Wilburn MD Work Phone: [facility] 02-17-2022 11:30-0500 Systolic blood pressure 132 mm[Hg] Haylee Wilburn MD Work Phone: [facility] 02-16-2022 11:03-0500 Diastolic blood pressure 64 mm[Hg] Sayra Tello MD Work Phone: [facility] 02-16-2022 11:03-0500 Systolic blood pressure 90 mm[Hg] Sayra Tello MD Work Phone: [facility] 02-16-2022 10:55-0500 Body height 180.3 cm Sayra Tello MD Work Phone: [facility] 02-16-2022 10:55-0500 Body weight 115.67 kg Sayra Tello MD Work Phone: [facility] 02-16-2022 10:55-0500 Heart rate 51 /min Sayra Tello MD Work Phone: [facility] 02-16-2022 10:55-0500 SaO2% (BldA) [Mass fraction] 94 % Sayra Tello MD Work Phone: [facility] 02-13-2022 14:10-0500 Body temperature 98.2 [degF] Suman Peterson APRN.[employer] Work Phone: [facility] 02-13-2022 14:10-0500 Body weight 119.75 kg Suman Peterson APRN.[employer] Work Phone: [facility] 02-13-2022 14:10-0500 Diastolic blood pressure 87 mm[Hg] Suman Peterson APRN.[employer] Work Phone: [facility] 02-13-2022 14:10-0500 Heart rate 64 /min Suman Peterson ETIQUETTE TE[employer]ER.[employer] Work Phone: [facility] 02-13-2022 14:10-0500 Respiratory rate 22 /min Suman Peterson ETIQUETTE TEACHER.[employer] Work Phone: [facility] 02-13-2022 14:10-0500 SaO2% (BldA) [Mass fraction] 94 % Suman Peterson ETIQUETTE TEACHER.[employer] Work Phone: [facility] 02-13-2022 14:10-0500 Systolic blood pressure 138 mm[Hg] Suman Peterson ETIQUETTE TEACHER.[employer] Work Phone: [facility] 02-10-2022 14:00-0500 Body temperature 97.52 [degF] Daksha Turner Other Phone: [facility] 02-10-2022 14:00-0500 Diastolic blood pressure 100 mm[Hg] Daksha Turner Other Phone: [facility] 02-10-2022 14:00-0500 Heart rate 87 /min Daksha Turner Other Phone: [facility] 02-10-2022 14:00-0500 Respiratory rate 18 /min Daksha Turner Other Phone: [facility] 02-10-2022 14:00-0500 SaO2% (BldA) [Mass fraction] 94 % Daksha Turner Other Phone: [facility] 02-10-2022 14:00-0500 Systolic blood pressure 126 mm[Hg] Daksha Turner Other Phone: [facility] 01-29-2022 15:08-0500 Respiratory rate 20 /min Dr. Jose Ramon Turner Work Phone: [facility] 01-29-2022 14:36-0500 Diastolic blood pressure 128 mm[Hg] Dr. Jose Ramon Turner Work Phone: [facility] 01-29-2022 14:36-0500 Heart rate 101 /min Dr. Jose Ramon Turner Work Phone: [facility] 01-29-2022 14:36-0500 SaO2% (BldA) [Mass fraction] 98 % Dr. Jose Ramon Turner Work Phone: [facility] 01-29-2022 14:36-0500 Systolic blood pressure 157 mm[Hg] Dr. Jose Ramon Turner Work Phone: [facility] 01-29-2022 14:00-0500 Inhaled oxygen flow rate 2 L/min Dr. Jose Ramon Turner Work Phone: [facility] 01-29-2022 11:54-0500 Body height 177.[address] Jose Ramon Turner Work Phone: [facility] Work Phone: 01-29-2022 11:54-0500 Body mass index (BMI) [Ratio] 40.1 kg/m2 Dr. Jose Ramon Turner Work Phone: [facility] 01-29-2022 11:54-0500 Body temperature 97.6 [degF] Dr. Jose Ramon Turner Work Phone: [facility] 01-29-2022 11:54-0500 Body weight 126.[address] Jose Ramon Turner Work Phone: [facility] 01-20-2022 20:25-0500 Diastolic blood pressure 103 mm[Hg] Dr. Jose Ramon Turner Work Phone: [facility] 01-20-2022 20:25-0500 Heart rate 88 /min Dr. Jose Ramon Turner Work Phone: [facility] 01-20-2022 20:25-0500 Respiratory rate 31 /min Dr. Jose Ramon Turner Work Phone: [facility] 01-20-2022 20:25-0500 SaO2% (BldA) [Mass fraction] 97 % Dr. Jose Ramon Turner Work Phone: [facility] 01-20-2022 20:25-0500 Systolic blood pressure 136 mm[Hg] Dr. Jose Ramon Turner Work Phone: [facility] 01-20-2022 18:43-0500 Body height 177.[address] Jose Ramon Turner Work Phone: [facility] Work Phone: 01-20-2022 18:43-0500 Body mass index (BMI) [Ratio] 30.9 kg/m2 Dr. Jose Ramon Turner Work Phone: [facility] 01-20-2022 18:43-0500 Body temperature 97.7 [degF] Dr. Jose Ramon Turner Work Phone: [facility] 01-20-2022 18:43-0500 Body weight 97.[address] Jose Ramon Turner Work Phone: [facility] 12-09-2021 10:15-0400 Body height 177.8 cm Alfredo Xavier MD Work Phone: [facility] 12-09-2021 10:15-0400 Body weight 114.31 kg Alfredo Xavier MD Work Phone: [facility] 12-09-2021 10:15-0400 Diastolic blood pressure 91 mm[Hg] Alfredo Xavier MD Work Phone: [facility] 12-09-2021 10:15-0400 Heart rate 98 /min Alfredo Xavier MD Work Phone: [facility] 12-09-2021 10:15-0400 Respiratory rate 22 /min Alfredo Xavier MD Work Phone: [facility] 12-09-2021 10:15-0400 SaO2% (BldA) [Mass fraction] 96 % Alfredo Xavier MD Work Phone: [facility] 12-09-2021 10:15-0400 Systolic blood pressure 131 mm[Hg] Alfredo Xavier MD Work Phone: [facility] 12-09-2021 07:44-0400 Body temperature 97 [degF] Dr. Jose Ramon Turner Work Phone: [facility] Work Phone: 12-09-2021 07:44-0400 Diastolic blood pressure 88 mm[Hg] Dr. Jose Ramon Turner Work Phone: [facility] Work Phone: 12-09-2021 07:44-0400 Heart rate 61 /min Dr. Jose Ramon Turner Work Phone: [facility] Work Phone: 12-09-2021 07:44-0400 Respiratory rate 16 /min Dr. Jose Ramon Turner Work Phone: [facility] Work Phone: 12-09-2021 07:44-0400 SaO2% (BldA) [Mass fraction] 96 % Dr. Jose Ramon Turner Work Phone: [facility] Work Phone: 12-09-2021 07:44-0400 Systolic blood pressure 112 mm[Hg] Dr. Jose Ramon Turner Work Phone: [facility] Work Phone: 12-08-2021 17:06-0400 Inhaled oxygen flow rate 2 L/min Dr. Jose Ramon Turner Work Phone: [facility] Work Phone: 12-08-2021 12:50-0400 Body weight 116.[address] Jose Ramon Turner Work Phone: [facility] Work Phone: 12-07-2021 16:40-0400 Body mass index (BMI) [Ratio] 36.7 kg/m2 Dr. Jose Ramon Turner Work Phone: [facility] Work Phone: 12-07-2021 16:29-0400 Body temperature 98.4 [degF] [facility] Work Phone: 12-07-2021 16:29-0400 Diastolic blood pressure 78 mm[Hg] [facility] Work Phone: 12-07-2021 16:29-0400 Heart rate 98 /min [facility] Work Phone: 12-07-2021 16:29-0400 Inhaled oxygen flow rate 2 L/min [facility] Work Phone: 12-07-2021 16:29-0400 Respiratory rate 24 /min [facility] Work Phone: 12-07-2021 16:29-0400 SaO2% (BldA) [Mass fraction] 97 % [facility] Work Phone: 12-07-2021 16:29-0400 Systolic blood pressure 134 mm[Hg] [facility] Work Phone: 12-07-2021 13:38-0400 Body height 177.8 cm [facility] Work Phone: 12-07-2021 13:38-0400 Body mass index (BMI) [Ratio] 36.6 kg/m2 [facility] Work Phone: 12-07-2021 13:38-0400 Body weight 115.66 kg [facility] Work Phone: 11-19-2021 08:48-0400 Body height 177.8 cm Haylee Wilburn MD Work Phone: [facility] 11-19-2021 08:48-0400 Body weight 118.84 kg Haylee Wilburn MD Work Phone: [facility] 11-19-2021 08:48-0400 Diastolic blood pressure 82 mm[Hg] Haylee Wilburn MD Work Phone: [facility] 11-19-2021 08:48-0400 Heart rate 76 /min Haylee Wilburn MD Work Phone: [facility] 11-19-2021 08:48-0400 Respiratory rate 18 /min Haylee Wilburn MD Work Phone: [facility] 11-19-2021 08:48-0400 Systolic blood pressure 130 mm[Hg] Haylee Wilburn MD Work Phone: [facility] 10-27-2021 11:35-0400 Body height 177.8 cm Pacc 2 Work Phone: [facility] 10-27-2021 11:35-0400 Body temperature 97.7 [degF] Pacc 2 Work Phone: [facility] 10-27-2021 11:35-0400 Body weight 118.39 kg Pacc 2 Work Phone: [facility] 10-27-2021 11:35-0400 Diastolic blood pressure 88 mm[Hg] Pacc 2 Work Phone: [facility] 10-27-2021 11:35-0400 Heart rate 77 /min Pacc 2 Work Phone: [facility] 10-27-2021 11:35-0400 SaO2% (BldA) [Mass fraction] 96 % Pacc 2 Work Phone: [facility] 10-27-2021 11:35-0400 Systolic blood pressure 127 mm[Hg] Pacc 2 Work Phone: [facility] 10-09-2021 10:24-0400 Body temperature 97.7 [degF] Godfrey Maroli E[employer]ET[employer] TE[employer]ER.[employer] Work Phone: [facility] 10-09-2021 10:24-0400 Body weight 118.84 kg Godfrey Maroli ETIQUET[employer] TEACHER.[employer] Work Phone: [facility] 10-09-2021 10:24-0400 Diastolic blood pressure 89 mm[Hg] Godfrey Maroli [employer]QUET[employer] TEACHER.[employer] Work Phone: [facility] 10-09-2021 10:24-0400 Heart rate 74 /min Godfrey Maroli E[employer]QUET[employer] TEACHER.[employer] Work Phone: [facility] 10-09-2021 10:24-0400 Respiratory rate 20 /min Godfrey Maroli [employer]QUET[employer] TEACHER.[employer] Work Phone: [facility] 10-09-2021 10:24-0400 SaO2% (BldA) [Mass fraction] 97 % Godfrey Maroli E[employer]QUET[employer] TEACHER.[employer] Work Phone: [facility] 10-09-2021 10:24-0400 Systolic blood pressure 130 mm[Hg] Godfrey Maroli E[employer]QUET[employer] TEACHER.[employer] Work Phone: [facility] 09-22-2021 12:16-0400 Body height 180.3 cm Chaka Doris E[employer]ET[employer] TEACHER.[employer] Work Phone: [facility] 09-22-2021 12:16-0400 Body weight 125.19 kg Chaka Doris ETIQUETTE TEACHER.[employer] Work Phone: [facility] 09-22-2021 12:16-0400 Diastolic blood pressure 90 mm[Hg] Chaka Doris E[employer]QUET[employer] TEACHER.[employer] Work Phone: [facility] 09-22-2021 12:16-0400 Heart rate 90 /min Chaka Doris ETIQUET[employer] TEACHER.[employer] Work Phone: [facility] 09-22-2021 12:16-0400 Respiratory rate 18 /min Chaka Doris [employer]ET[employer] TE[employer]ER.[employer] Work Phone: [facility] 09-22-2021 12:16-0400 SaO2% (BldA) [Mass fraction] 97 % Chaka Doris [employer] TE[employer]ER.[employer] Work Phone: [facility] 09-22-2021 12:16-0400 Systolic blood pressure 128 mm[Hg] Chaka Doris [employer] TE[employer]ER.[employer] Work Phone: [facility] 09-11-2021 13:30-0400 Body temperature 97.11 [degF] Kenneth Chester MD Work Phone: [facility] 09-11-2021 13:30-0400 Body weight 118.07 kg Kenneth Chester MD Work Phone: [facility] 09-11-2021 13:30-0400 Diastolic blood pressure 89 mm[Hg] Kenneth Chester MD Work Phone: [facility] 09-11-2021 13:30-0400 Heart rate 92 /min Kenneth Chester MD Work Phone: [facility] 09-11-2021 13:30-0400 Respiratory rate 20 /min Kenneth Chester MD Work Phone: [facility] 09-11-2021 13:30-0400 SaO2% (BldA) [Mass fraction] 95 % Kenneth Chester MD Work Phone: [facility] 09-11-2021 13:30-0400 Systolic blood pressure 139 mm[Hg] Kenneth Chester MD Work Phone: [facility] 09-02-2021 14:09-0400 Body temperature 97.9 [degF] Taussig (Trac) Work Phone: [facility] 09-02-2021 14:09-0400 Body weight 118.16 kg Taussig (Trac) Work Phone: [facility] 09-02-2021 14:09-0400 Diastolic blood pressure 99 mm[Hg] Taussig (Trac) Work Phone: [facility] 09-02-2021 14:09-0400 Heart rate 105 /min Taussig (Trac) Work Phone: [facility] 09-02-2021 14:09-0400 Respiratory rate 22 /min Taussig (Trac) Work Phone: [facility] 09-02-2021 14:09-0400 SaO2% (BldA) [Mass fraction] 100 % [place]aussig (Trac) Work Phone: [facility] 09-02-2021 14:09-0400 Systolic blood pressure 135 mm[Hg] Taussig (Trac) Work Phone: [facility] 08-19-2021 11:57-0400 Body temperature 98.1 [degF] Godfrey Clayton RN [facility] 08-19-2021 11:57-0400 Respiratory rate 18 /min Godfrey Clayton RN [facility] 08-19-2021 10:05-0400 Body weight 113.81 kg Lalo Acevedo MD Work Phone: [facility] 08-19-2021 10:05-0400 Diastolic blood pressure 102 mm[Hg] Lalo Acevedo MD Work Phone: [facility] 08-19-2021 10:05-0400 Heart rate 90 /min Lalo Acevedo MD Work Phone: [facility] 08-19-2021 10:05-0400 SaO2% (BldA) [Mass fraction] 96 % Lalo Acevedo MD Work Phone: [facility] 08-19-2021 10:05-0400 Systolic blood pressure 136 mm[Hg] Lalo Acevedo MD Work Phone: [facility] 08-08-2021 09:19-0400 Body temperature 99 [degF] Godfrey Maroli ETIQUETTE TEACHER.BELLOWS FILLER Work Phone: [facility] 08-08-2021 09:19-0400 Body weight 117.98 kg Godfrey Maroli ETIQUETTE TEACHER.BELLOWS FILLER Work Phone: [facility] 08-08-2021 09:19-0400 Diastolic blood pressure 98 mm[Hg] Godfrey Maroli ETIQUETTE TEACHER.BELLOWS FILLER Work Phone: [facility] 08-08-2021 09:19-0400 Heart rate 109 /min Godfrey Maroli ETIQUETTE TEACHER.BELLOWS FILLER Work Phone: [facility] 08-08-2021 09:19-0400 Respiratory rate 20 /min Godfrey Maroli ETIQUETTE TEACHER.BELLOWS FILLER Work Phone: [facility] 08-08-2021 09:19-0400 SaO2% (BldA) [Mass fraction] 95 % Godfrey Ohara ETIQUETTE TEACHER.BELLOWS FILLER Work Phone: [facility] 08-08-2021 09:19-0400 Systolic blood pressure 141 mm[Hg] Godfrey Xochitl ETIQUETTE TEACHER.BELLOWS FILLER Work Phone: [facility] 08-06-2021 09:56-0400 Body temperature 98.1 [degF] Godfrey Clayton [facility] seferino 08-06-2021 09:56-0400 Body weight 118.3 kg Godfrey Clayton [facility] 08-06-2021 09:56-0400 Diastolic blood pressure 92 mm[Hg] Godfrey Clayton [facility] 08-06-2021 09:56-0400 Heart rate 99 /min Godfrey Clayton [facility] 08-06-2021 09:56-0400 Respiratory rate 20 /min Godfrey Clayton [facility] 08-06-2021 09:56-0400 SaO2% (BldA) [Mass fraction] 99 % Godfrey Clayton RN [facility] 08-06-2021 09:56-0400 Systolic blood pressure 144 mm[Hg] Godfrey Clayton RN [facility] 07-31-2021 09:23-0400 Diastolic blood pressure 103 mm[Hg] Lalo Acevedo MD Work Phone: [facility] 07-31-2021 09:23-0400 Heart rate 72 /min Lalo Acevedo MD Work Phone: [facility] 07-31-2021 09:23-0400 Respiratory rate 12 /min Lalo Acevedo MD Work Phone: [facility] 07-31-2021 09:23-0400 SaO2% (BldA) [Mass fraction] 95 % Lalo Acevedo MD Work Phone: [facility] 07-31-2021 09:23-0400 Systolic blood pressure 147 mm[Hg] Lalo Acevedo MD Work Phone: [facility] 07-24-2021 10:13-0400 Body temperature 98.29 [degF] Godfrey Maroli ETIQUETTE TEACHER.BELLOWS FILLER Work Phone: [facility] 07-24-2021 10:13-0400 Body weight 118 kg Godfrey Maroli ETIQUETTE TEACHER.BELLOWS FILLER Work Phone: [facility] 07-24-2021 10:13-0400 Diastolic blood pressure 92 mm[Hg] Godfrey Maroli ETIQUETTE TEACHER.BELLOWS FILLER Work Phone: [facility] 07-24-2021 10:13-0400 Heart rate 88 /min Godfrey Maroli ETIQUETTE TEACHER.BELLOWS FILLER Work Phone: [facility] 07-24-2021 10:13-0400 Respiratory rate 20 /min Godfrey Maroli ETIQUETTE TEACHER.BELLOWS FILLER Work Phone: [facility] 07-24-2021 10:13-0400 SaO2% (BldA) [Mass fraction] 99 % Godfrey Maroli ETIQUETTE TEACHER.BELLOWS FILLER Work Phone: [facility] 07-24-2021 10:13-0400 Systolic blood pressure 146 mm[Hg] Godfrey Maroli ETIQUETTE TEACHER.BELLOWS FILLER Work Phone: [facility] 07-21-2021 08:57-0400 Diastolic blood pressure 91 mm[Hg] Godfrey Clayton RN [facility] 07-21-2021 08:57-0400 Systolic blood pressure 146 mm[Hg] Godfrey Clayton RN [facility] 07-21-2021 08:49-0400 Body temperature 98.2 [degF] Godfrey Clayton RN [facility] seferino 07-21-2021 08:49-0400 Heart rate 72 /min Godfrey Clayton RN [facility] 07-21-2021 08:49-0400 Respiratory rate 20 /min Godfrey Clayton RN [facility] seferino 07-21-2021 08:49-0400 SaO2% (BldA) [Mass fraction] 99 % Godfrey Clayton RN [facility] 07-14-2021 14:42-0400 Body temperature 99.5 [degF] Godfrey Maroli ETIQUETTE TEACHER.BELLOWS FILLER Work Phone: [facility] 07-14-2021 14:42-0400 Body weight 118.48 kg Godfrey Haskinsoli ETIQUETTE TEACHER.BELLOWS FILLER Work Phone: [facility] 07-14-2021 14:42-0400 Diastolic blood pressure 99 mm[Hg] Godfrey Maroli ETIQUETTE TEACHER.BELLOWS FILLER Work Phone: [facility] 07-14-2021 14:42-0400 Heart rate 77 /min Godfrey Maroli ETIQUETTE TEACHER.BELLOWS FILLER Work Phone: [facility] 07-14-2021 14:42-0400 Respiratory rate 20 /min Godfrey Maroli ETIQUETTE TEACHER.BELLOWS FILLER Work Phone: [facility] 07-14-2021 14:42-0400 SaO2% (BldA) [Mass fraction] 100 % Godfrey Maroli ETIQUETTE TEACHER.BELLOWS FILLER Work Phone: [facility] 07-14-2021 14:42-0400 Systolic blood pressure 143 mm[Hg] Godfrey Maroli ETIQUETTE TEACHER.BELLOWS FILLER Work Phone: [facility] 07-02-2021 11:53-0400 Diastolic blood pressure 89 mm[Hg] Kenneth Chester MD Work Phone: [facility] 07-02-2021 11:53-0400 Heart rate 71 /min Kenneth Chester MD Work Phone: [facility] 07-02-2021 11:53-0400 Respiratory rate 20 /min Kenneth Chester MD Work Phone: [facility] 07-02-2021 11:53-0400 SaO2% (BldA) [Mass fraction] 98 % Kenneth Chester MD Work Phone: [facility] 07-02-2021 11:53-0400 Systolic blood pressure 150 mm[Hg] Kenneth Chester MD Work Phone: [facility] 06-23-2021 10:56-0400 Body weight 115.03 kg Adriana Hodge MD Work Phone: [facility] 06-23-2021 10:56-0400 Diastolic blood pressure 92 mm[Hg] Adriana Hodge MD Work Phone: [facility] 06-23-2021 10:56-0400 Heart rate 59 /min Adriana Hodge MD Work Phone: [facility] 06-23-2021 10:56-0400 Systolic blood pressure 142 mm[Hg] Adriana Hodge MD Work Phone: [facility] 06-19-2021 19:35-0400 Body temperature 98.6 [degF] Family Unavailable [facility] 06-19-2021 19:35-0400 Diastolic blood pressure 90 mm[Hg] Family Unavailable [facility] 06-19-2021 19:35-0400 Heart rate 71 /min Family Unavailable [facility] 06-19-2021 19:35-0400 Respiratory rate 20 /min Family Unavailable [facility] 06-19-2021 19:35-0400 SaO2% (BldA) [Mass fraction] 100 % Family Unavailable [facility] 06-19-2021 19:35-0400 Systolic blood pressure 156 mm[Hg] Family Unavailable [facility] 06-19-2021 15:47-0400 Body height 180.34 cm Family Unavailable [facility] 06-19-2021 15:47-0400 Body mass index (BMI) [Ratio] 34.1 kg/m2 Family [facility] 06-19-2021 15:47-0400 Body weight 111 kg Family Unavailable [facility] Encounters Encounter Date Encounter Type Care Provider Facility Start: 12-05-2024 ambulatory Daksha Nicholas lity:[facility] Start: 11-13-2024 ambulatory Daksha Nicholas lity:[facility] Start: 11-01-2024 ambulatory Daksha Nicholas lity:[facility] Start: 10-30-2024 End: 10-30-2024 Patient encounter procedure Kassy QUINTANAC -[facility] Work Phone: Start: 10-30-2024 End: 10-30-[address] Daksha Turner MD Work Phone: -[facility] Start: 10-21-2024 Non-patient / Non-visit Dr. Marquise Padilla MD -[facility] Work Phone: Start: 10-20-2024 Non-patient / Non-visit Dr. Marquise Padilla MD -[facility] Work Phone: Start: 10-19-2024 ambulatory Daksha Nicholas lity:[facility] Start: 10-19-2024 End: 10-21-2024 Evaluation and management of inpatient Dr. Rahul Chaevz -[facility] Work Phone: Start: 10-02-2024 End: 10-02-2024 Patient encounter procedure Gini Couch NP-C -[facility] Work Phone: Start: 10-02-2024 End: 10-02-[address] Daksha Turner MD Work Phone: -[facility] Start: 10-02-2024 End: 10-02-2024 ambulatory Daksha Turner Facility:[facility] Start: 09-26-2024 Non-patient / Non-visit Gini Couch NP-C -[facility] Work Phone: Start: 09-26-2024 ambulatory Daksha Arthuri lity:[facility] Start: 09-25-2024 ambulatory Daksha Nicholas lity:[facility] Start: 09-25-2024 Non-patient / Non-visit Dr. Moises Gaona MD -[facility] Start: 09-25-2024 End: 09-25-[address] Daksha Turner MD Work Phone: -[facility] Start: 09-25-2024 End: 09-25-[address] Daksha Turner MD -[facility] [address] [place] Work Phone: Start: 09-25-2024 End: 09-25-[address] Daksha Turner MD Work Phone: -Cardiovascular Services Start: 09-25-2024 End: 09-25-2024 Patient encounter procedure Gini Couch SOFT IRON INSPECTOR-C -Card[facility] Services Work Phone: Start: 09-24-2024 End: 09-25-2024 ambulatory Daksha Turner Facility:[facility] Start: 09-24-2024 Non-patient / Non-visit Dr. Moises Gaona MD -[facility] Start: 09-12-2024 ambulatory Daksha Arthuri lity:[facility] Start: 08-14-2024 End: 09-04-[address] Daksha Turner MD -Nutritional Services Work Phone: Start: 08-14-[address] Fazal Turner MD -Nutritional Services Work Phone: Start: 08-14-2024 End: 09-04-[address] 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 Daksha Turner MD Work Phone: [facility] Work Phone: Start: 08-14-2024 End: 08-14-2024 ambulatory Gini Couch NP Facility:[facility] Start: 08-01-2024 ambulatory Daksha Nicholas lity:[facility] Start: 07-18-2024 ambulatory Daksha Nicholas lity:[facility] Start: 06-20-2024 End: 06-20-[address] Daksha Turner MD Work Phone: [facility] Work Phone: Start: 06-20-2024 End: 06-20-[address] Dangelo Botello MD -[facility] Work Phone: Start: 06-20-2024 End: 06-20-2024 ambulatory Daksha Turner Facility:[facility] Start: 06-13-2024 End: 06-13-[address] Daksha Turner MD Work Phone: [facility] Work Phone: Start: 06-13-2024 End: 06-13-[address] Dangelo Botello MD -Cat Scan, [facility] Work Phone: Start: 06-13-2024 End: 06-13-2024 [facility] Start: 06-05-2024 End: 06-05-[address] Daksha Turner MD -Nutritional Services Work Phone: Start: 06-05-2024 End: 06-05-[address] Daksha Turner MD Work Phone: [facility] Work Phone: Start: 03-22-2024 End: 03-22-[address] Isidra Chiu DO -Laboratory Work Phone: Start: 03-22-2024 End: 03-22-2024 [facility] Start: 02-08-2024 End: 02-08-[address] Daksha Turner MD -Cat Scan, [facility] Work Phone: Start: 02-08-2024 End: 02-08-2024 ambulatory Daksha Turner Facility:[facility] Start: 01-11-2024 End: 01-11-2024 ambulatory Janusz Johnny Facility:[facility] Start: 12-22-2023 End: 12-22-2023 ambulatory Janusz Johnny Facility[facility] Start: 12-22-2023 End: 12-22-2023 ambulatory [place] Johnny Facility:[facility] Start: 05-27-2023 End: 05-27-[address] Jose Ramon Turner Work Phone: [facility] Work Phone: Start: 05-27-2023 End: 05-27-[address] Jose Ramon Turner Work Phone: [facility]-Laboratory, [place] Work Phone: Start: 05-21-2023 End: 05-21-[address] Jose Ramon Turner Work Phone: [facility] Work Phone: Start: 05-21-2023 End: 05-21-[address] Jose Ramon Turner Work Phone: [facility]-Laboratory, Specimen Work Phone: Start: 05-20-2023 End: 05-20-[address] Jose Ramon Turner Work Phone: [facility] Work Phone: Start: 05-20-2023 End: 05-20-[address] [facility] Start: 04-26-2023 End: 04-26-[address] Jose Ramon Turner Work Phone: [facility] Work Phone: Start: 04-26-2023 End: 04-26-[address] Jose Ramon Turner Work Phone: [facility]-Radiology, [place] Work Phone: Start: 04-12-[address] Fazal Turner Work Phone: [facility] Start: 04-12-2023 End: 04-12-[address] Jose Ramon Turner Work Phone: [facility] Work Phone: Start: 03-04-2023 End: 03-04-[address] Jose Ramon Turner Work Phone: [facility] Work Phone: Start: 03-04-2023 End: 03-04-[address] Jose Ramon Turner Work Phone: [facility]-Cat Scan, [facility] Work Phone: Start: 02-12-2023 End: 02-12-[address] Jose Ramon Turner Work Phone: [facility] Work Phone: Start: 02-12-2023 End: 02-12-[address] Jose Ramon Turner Work Phone: [facility]-Laboratory, Specimen Work Phone: Start: 12-30-2022 End: 12-30-[address] Jose Ramon Turner Work Phone: [facility] Work Phone: Start: 12-30-2022 End: 12-30-[address] Jose Ramon Turner Work Phone: [facility] Work Phone: Start: 12-17-2022 Non-patient / Non-visit Dr. Jose Ramon Turner Work Phone: [facility] Work Phone: Start: 12-16-2022 End: 12-17-2022 Evaluation and management of inpatient Dr. Jose Ramon Turner Work Phone: [facility]-Progressive Care Unit Work Phone: Start: 12-16-2022 Non-patient / Non-visit Dr. Jose Ramon Turner Work Phone: [facility] Work Phone: Start: 12-15-2022 Non-patient / Non-visit Dr. Jose Ramon Turner Work Phone: [facility] Work Phone: Start: 11-12-2022 End: 11-12-[address] Jose Ramon Turner Work Phone: [facility] Work Phone: Start: 09-29-2022 End: 09-29-[address] Jose Ramon Turner Work Phone: [facility] Work Phone: Start: 09-03-2022 End: 09-03-[address] Jose Ramon Turner Work Phone: [facility] Work Phone: Start: 09-03-[address] Fazal Turner Work Phone: [facility] Start: 09-01-2022 End: 09-01-[address] Jose Ramon Turner Work Phone: [facility] Work Phone: Start: 09-01-2022 End: 09-01-[address] Jose Ramon Turner Work Phone: [facility] Work Phone: Start: 07-17-[address] Jose Ramon Turner Facility:[id number] Start: 07-16-2022 Non-patient / Non-visit Dr. Jose Ramon Turner Work Phone: [facility] Start: 07-16-2022 End: 07-16-[address] Jose Ramon [facility] Work Phone: Start: 06-29-2022 Non-patient / Non-visit Dr. Jose Ramon Turner Work Phone: [facility] Start: 06-28-2022 End: 06-29-2022 Evaluation and management of inpatient Dr. Jose Ramon Turner Work Phone: [facility] Start: 05-27-2022 End: 05-27-[address] Jose Ramon Turner Work Phone: [facility] Start: 05-27-2022 End: 05-27-[address] Jose Ramon Turner Work Phone: [facility] Start: 05-20-2022 Non-patient / Non-visit Dr. Jose Ramon Turner Work Phone: [facility] Start: 05-19-2022 Non-patient / Non-visit Dr. Jose Ramon Turner Work Phone: [facility] Start: 05-18-2022 End: 05-20-2022 Evaluation and management of inpatient Dr. Jose Ramon Turner Work Phone: [facility] Start: 04-16-2022 Non-patient / Non-visit Dr. Jose Ramon Turner Work Phone: [facility] Start: 04-15-2022 Non-patient / Non-visit Dr. Jose Ramon Turner Work Phone: [facility] Start: 04-15-2022 End: 04-15-2022 Non-patient / Non-visit Dr. Jose Ramon Turner Work Phone: [facility] Start: 04-14-2022 Non-patient / Non-visit Dr. Jose Ramon Turner Work Phone: [facility] Start: 04-14-2022 Non-patient / Non-visit Dr. Jose Ramon Turner Work Phone: [facility] Start: 04-13-2022 End: 04-16-2022 Evaluation and management of inpatient [facility]Intensive Care [facility] Start: 04-13-2022 End: 04-13-[address] Jose Ramon Turner Work Phone: [facility] Work Phone: Start: 04-13-2022 End: 04-13-2022 Patient encounter procedure [facility] Start: 04-09-2022 End: 04-10-2022 ambulatory DAKSHA TURNER Facility:[id number] Start: 04-09-2022 End: 04-09-2022 ambulatory Chair [address] [place] [address] Comment on above: Malignant neoplasm o f right kidney, except renal pelvis (HCC) (Primary Dx) Start: 04-03-2022 Postop follow up visit related to original px Daksha Turner Work Phone: [facility] DO Work Phone: Start: 04-03-[address] Jose Ramon Turner Facility:[id number] Start: 04-02-2022 Telephone encounter America Schwartz vice president education Oncology Comment on above: Appointment Appointment (No show ) Start: 03-26-2022 ambulatory HAYLEE WILBURN Facility :[id number] Start: 03-26-2022 End: 03-26-2022 Subsequent hospital visit by physician [facility] Work Phone: Radiology CT Scan Comment on above: Malignant neoplasm o f right kidney, except renal pelvis [C64.1] Start: 03-25-2022 Telephone encounter Haylee Wilburn MD Work Phone: Hematology Oncology Comment on above: Appointment; Care Co ordinator - Other Start: 03-23-2022 ambulatory Haley MARTINEZ(R) [facility] Comment on above: Radiology [place] Start: 03-23-2022 Patient encounter procedure Haley MARTINEZ(R) [facility] Start: 03-23-2022 End: 03-23-2022 Subsequent hospital visit by physician [facility] Work Phone: Nuclear Medicine Comment on above: Renal cell carcinoma of right kidney (HCC) [C64.1] Start: 03-16-2022 Refill Haylee Wilburn MD Work Phone: Hematology/Oncology Comment on above: Refill Request (Inly ta to [facility]) Start: 03-12-2022 ambulatory Malachi Schaffer [facility] Start: 03-12-2022 Patient encounter procedure Malachi Sarbjit [facility] Comment on above: SPP Oral Oncology/he matology - Treatment Referral (Inlyta); Insurance Authorization (Pending PA) Start: 03-12-2022 Telephone encounter America Schwartz RN Hematology Oncology Comment on above: Appointment Start: 03-11-2022 End: 03-12-2022 ambulatory HAYLEE WILBURN Facility:[id number] Start: 03-11-2022 End: 03-11-2022 Office outpatient visit 25 minutes Haylee Wilburn MD Work Phone: Hematology Oncology Comment on above: Renal cell carcinoma of right kidney (HCC) (Primary Dx) Start: 02-26-2022 ambulatory SAYRA TELLO Fa cility:[id number] Start: 02-26-2022 End: 02-26-2022 Subsequent hospital visit by physician Echo Lab 3 [facility] Cardiology Comment on above: Acute decompensated heart failure (HCC) [I50.9] Start: 02-17-2022 End: 02-18-2022 ambulatory HAYLEE WILBURN Facility:[id number] Start: 02-17-2022 End: 02-17-2022 Office outpatient visit 25 minutes Haylee Wilburn MD Work Phone: Hematology Oncology Comment on above: Metastatic renal maggie l carcinoma, unspecified laterality (HCC) (Primary Dx) Start: 02-16-2022 End: 02-16-2022 ambulatory SAYRA TELLO Facility:[id number] Start: 02-16-2022 End: 02-16-2022 Office outpatient new 60 minutes Sayra Tello MD Work Phone: [facility] Comment on above: Paroxysmal atrial fi brillation (HCC) (Primary Dx); Nonrheumatic mitral valve regurgitation; Acute decompensated heart failure (HCC); Essential hypertension; Tobacco use disorder; NIMCO (obstructive sleep apnea) Start: 02-13-2022 End: 02-14-2022 ambulatory SUMAN PETERSON Facility:[id number] Start: 02-13-2022 End: 02-13-2022 Patient encounter procedure Suman Peterson ETIQUETTE TEACHER.BELLOWS FILLER Work Phone: Radiation Oncology Comment on above: Renal cell carcinoma of right kidney metastatic to other site (HCC) (Primary Dx) Start: 02-11-2022 Chart abstracting Adrienne Lee MA [facility] Start: 02-06-2022 [facility], Provider: Aravind Hernandez, Status: Pen, Time: 9:30 AM Daksha Turner Work Phone: [id number] DO Work Phone: Start: 02-06-2022 End: 02-10-2022 Evaluation and management of inpatient Aravind Luzicson [address] [id number] Start: 02-05-2022 Telephone encounter Sayra Tello MD Work Phone: [facility] Comment on above: Patient Question Start: 02-05-2022 Chart Update Daksha Turner Work Phone: UV-Zwfpzly-Bblhyrbd ZenDocXiomara 400 DO Work Phone: Start: 02-03-2022 Chart Update Daksha Turner Work Phone: VJ-Pyplfhd-Mgvligtq ZenDocW 400 DO Work Phone: Start: 01-29-2022 End: 01-29-2022 Emergency department patient visit Dr. Jose Ramon Turner Work Phone: [facility] Department Start: 01-27-[address] ARAVIND Barragan acility:[id number] Start: 01-27-2022 Encounter for blood typing Dr. ARAVIND ROSARIO [facility] Start: 01-27-2022 Encounter for preprocedural laboratory examination Dr. ARAVIND RODRIGUEZ [facility] Start: 01-23-2022 ambulatory Krish Scott Work Phone: Urology Start: 01-22-2022 Refill Kitty GEE-C Work Phone: Hematology Oncology Comment on above: Refill Request Start: 01-20-2022 End: 01-20-2022 Emergency department patient visit Dr. Jose Ramon Turner Work Phone: [facility]gency Department Start: 01-19-2022 ambulatory KITTY Rojas ty:[id number] Start: 01-19-2022 End: 01-19-2022 Subsequent hospital visit by physician Xr [facility] Comment on above: Renal cell carcinoma of right kidney (HCC) [C64.1] Start: 2022 Patient encounter procedure Alfredo Xavier MD Work Phone: [facility] Start: 2022 Radiation Oncology Note Alfredo Xavier MD Work Phone: Radiation Oncology Comment on above: Completion Note Start: 12-30-2021 ambulatory Julee Nash RN [facility] Urological & Start: 12-30-2021 Telephone encounter Adirana glynn MD Work Phone: Urology Comment on above: Informed Consent Start: 12-28-2021 Telephone encounter Adriana glynn MD Work Phone: Urology Comment on above: Fine Grader - O ther; Patient Update Start: 12-27-2021 Telephone encounter Adriana glynn MD Work Phone: Urology Comment on above: Patient Update Start: 12-26-2021 End: 12-26-2021 ambulatory ALFREDO XAVIER Facility:[id number] Start: 12-25-2021 End: 12-25-2021 ambulatory ALFREDO XAVIER Facility:[id number] Start: 12-24-2021 End: 12-24-2021 ambulatory ALFREDO XAVIER Facility:[id number] Start: 12-23-2021 End: 12-23-2021 ambulatory ALFREDO XAVIER Facility:[id number] Start: 12-22-2021 End: 12-22-2021 ambulatory ALFREDO XAVIER Facility:[id number] Start: 12-12-2021 Patient encounter procedure Alfredo Xavier MD Work Phone: [facility] Start: 12-12-2021 Radiation Oncology Note Alfredo Xavier MD Work Phone: Radiation Oncology Comment on above: Treatment Planning Simulation Note Start: 12-12-2021 End: 12-12-2021 ambulatory ALFREDO XAVIER Facility:[id number] Start: 12-09-2021 End: 12-09-2021 ambulatory [facility] Start: 12-09-2021 [facility] visit new patient Noreen Morejon Work [facility]: [facility] Comment on above: New patient, to genesis griggs relationship; Invalid number; Letter Request Start: 12-09-2021 End: 12-09-2021 Office outpatient visit 15 minutes Alfredo Xavier MD Work Phone: Radiation Oncology Comment on above: Renal cell carcinoma of right kidney (HCC) (Primary Dx) Start: 12-09-2021 Non-patient / Non-visit Dr. Jose Ramon Turner Work Phone: [facility] Start: 12-08-2021 Non-patient / Non-visit Dr. Jose Ramon Turner Work Phone: [facility] Start: 12-07-2021 Non-patient / Non-visit Dr. Jose Ramon Turner Work Phone: [facility] Start: 12-07-2021 End: 12-09-2021 Evaluation and management of inpatient [facility] Start: 11-29-2021 Telephone encounter Adriana glynn MD Work Phone: Urology Comment on above: Results; Patient Upd ate; Fine Grader - Other Start: 11-24-2021 Telephone encounter America Schwartz RN Hematology Oncology Comment on above: Patient Update (Call ed patient to inform him that the speciality pharmacy is going to call to set-up delivery time for his chemo medication. Patient verbalized understanding. America Schwartz, RN, BSN, OCN/) Start: 11-20-2021 End: 11-20-2021 ambulatory DAKSHA MONTESHOLCOMB Facility:[facility] Start: 11-20-2021 End: 11-20-2021 Subsequent hospital visit by physician Ct 2 Main Qb (I-Stat) Radiology Comment on above: Malignant neoplasm o f right kidney, except renal pelvis (HCC) [C64.1] Start: 11-19-2021 End: 11-20-2021 ambulatory HAYLEE WILBURN Facility:[id number] Start: 11-19-2021 End: 11-19-2021 Office outpatient visit 25 minutes Haylee Wilburn MD Work Phone: Hematology Oncology Comment on above: Metastatic renal maggie l carcinoma, unspecified laterality (HCC) (Primary Dx) Start: 11-06-2021 Telephone encounter Haylee pimentel Work Phone: Hematology Oncology Comment on above: Patient Update Fine Grader - O ther (Calling to get an [...] is rescheduled.) Start: 10-27-2021 End: 10-28-2021 ambulatory [facility] Facility:[facility] Start: 10-27-2021 End: 10-27-2021 PAT Pacc Main [...] without esophagitis; Prediabetes; Coronary artery disease involving qagan tayagungin coronary artery of qagan tayagungin heart, unspecified whether angina present PreOp Call (Cardiac Optimization, Warfarin Clearance) Start: 10-27-2021 End: 10-28-2021 ambulatory DAKSHA TURNER Facility:[facility] Start: 10-27-2021 Encounter for other preprocedural examination KENNETH CHESTER [facility] Start: 10-27-2021 End: 10-27-2021 Preprocedural examination done Pacc Main 2 Work Phone: Pre Anesthesia Start: 10-21-2021 Telephone encounter Haylee Wilburn MD Work Phone: Hematology Oncology Comment on above: Medication Problem ( [facility] and canceled rx for cabzantinib and sent new order to [facility] speciality pharmacy.) Refill Request Start: 10-20-2021 End: 10-21-2021 ambulatory HAYLEE WILBURN Facility:[id number] Start: 10-16-2021 Telephone encounter Kenneth mayorga MD Work Phone: Hematology/Oncology Comment on above: Fine Grader - O ther Start: 10-14-2021 Telephone encounter Rahul Knight RN Hematology/Oncology Comment on above: Patient Update Patient Question Start: 10-09-2021 End: 10-10-2021 ambulatory KENNETH CHESTER Facility:[facility] Start: 10-09-2021 End: 10-09-2021 ambulatory Godfrey [...] End: 10-09-2021 Patient encounter procedure Godfrey Ohara APRN.BELLOWS FILLER Work Phone: [facility] Start: 10-06-2021 ambulatory DAKSHA TURNER cility:[facility] Start: 09-29-2021 Patient Outreach Safia Magalie martinez [facility] Work Phone: Pharmacy Comment on above: Transition Of Care ( Pharmacy - Hospital Discharge 09/26/21); Heart Failure Follow Up Phone Call (relate care discharge follow up-1st attempt-no contact-left vm) Start: 09-25-2021 End: 09-25-2021 ambulatory DAKSHA TURNER Facility:[facility] Start: 09-25-2021 End: 09-25-2021 Patient encounter procedure Ip Transesophageal Echo Cardiology Comment on above: Paroxysmal atrial fi brillation (HCC) (Primary Dx) Start: 09-22-2021 End: 09-26-2021 Evaluation and management of inpatient JANUSZEUNICE Gary JOHNNY Facility:[facility] Start: 09-22-2021 End: 09-22-2021 ambulatory DAKSHA TURNER Facility:[facility] Start: 09-22-2021 End: 09-22-2021 Patient encounter procedure Chaka George APRN.BELLOWS FILLER Work Phone: Cardiology Comment on above: Paroxysmal atrial fi brillation (HCC) (Primary Dx); Mitral valve insufficiency, unspecified etiology; New onset a-fib (HCC); Essential hypertension; Mixed hyperlipidemia; 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) Start: 09-19-2021 Telephone encounter Rahul Knight RN Hematology/Oncology Comment on above: Patient Question Start: 09-16-2021 Telephone encounter Rahul Knight RN Hematology/Oncology Comment on above: Patient Update Start: 09-11-2021 End: 09-12-2021 ambulatory DAKSHA TURNER Facility:[facility] Start: 09-11-2021 End: 09-11-2021 ambulatory Kenneth [...] encounter procedure Kenneth Chester MD Work Phone: [facility] Start: 09-05-2021 Telephone encounter Kenneth mayorga MD Work Phone: Hematology/Oncology Comment on above: Fine Grader - O ther Start: 09-04-2021 End: 09-04-2021 [facility] Start: 09-02-2021 End: 09-04-2021 Evaluation and management of inpatient DAKSHA TURNER Facility:[facility] Start: 09-02-2021 End: 09-02-2021 ambulatory ALTON Kaela MOREA Facility:[facility] Start: 09-02-2021 End: 09-02-2021 Subsequent hospital visit by physician Ct 2 Main Qb (I-Stat) Radiology Comment on above: SOB (shortness of br eath) [R06.02] Start: 09-02-2021 End: 09-03-2021 ambulatory ALTON Kaela MOREA Hematology/Oncolo gy Comment on above: SOB (shortness of br eath) (Primary Dx) Start: 09-02-2021 End: 09-02-2021 Patient encounter procedure [facility] ([facility]) Work Phone: [facility] Start: 09-02-2021 Chart abstracting Godfrey Martinez Hematology/Oncology Start: 09-02-2021 End: 09-02-2021 Subsequent hospital visit by physician Xr Main Ca LLD Work Phone: Radiology Comment on above: SOB (shortness of br eath) [R06.02] Start: 09-01-2021 Telephone encounter Adriana glynn MD Work Phone: Urology Comment on above: Results; Patient Upd ate; Fine Grader - Other Start: 08-27-2021 End: 08-27-2021 Orders Only Godfrey Maroli ETIQUETTE TEACHER.BELLOWS FILLER Work Phone: Hematology/Oncology Comment on above: Malignant neoplasm o f right kidney, except renal pelvis (HCC) (Primary Dx) Start: 08-20-2021 Orders Only Godfrey Marol i ETIQUETTE TEACHER.BELLOWS FILLER Work Phone: Hematology/Oncology Comment on above: Malignant neoplasm o f right kidney, except renal pelvis (HCC) (Primary Dx); Malignant neoplasm of kidney excluding renal pelvis, unspecified laterality (HCC) Start: 08-19-2021 End: 08-19-20[facility] Start: 08-19-2021 End: 08-19-2021 Nursing evaluation of patient and report Godfrey Clayton RN Hematology/Oncology Comment on above: Renal cell carcinoma , unspecified laterality (HCC) (Primary Dx) Start: 08-19-2021 End: 08-19-2021 Patient encounter procedure Godfrey Maroli ETIQUETTE TEACHER.BELLOWS FILLER Work Phone: [facility] Start: 08-19-2021 End: 08-20-2021 ambulatory Godfrey Maroli ETIQUETTE TEACHER.BELLOWS FILLER Work Phone: Hematology/Oncology Comment on above: Renal cell carcinoma , unspecified laterality (HCC) (Primary Dx); Hypertension, unspecified type Start: 08-19-2021 End: 08-19-2021 Patient encounter procedure Lalo Acevedo MD Work Phone: Cardiology Comment on above: Pedal edema (Primary Dx); Essential hypertension; Coronary artery disease involving qagan tayagungin coronary artery of qagan tayagungin heart without angina pectoris; Disturbance in sleep behavior Start: 08-18-2021 ambulatory Godfrey Marol i ETIQUETTE TEACHER.BELLOWS FILLER Work Phone: Hematology/Oncology Comment on above: Opened In Error Start: 08-18-2021 Telephone encounter Godfrey Clayton RN Hematology/Oncology Comment on above: Research ([facility] 1819) Start: 08-17-2021 End: 08-17-2021 Emergency department patient visit KIMOELA TURNER Facility:[facility] Start: 08-16-2021 ambulatory Lalo Acevedo MD Work Phone: Cardiology Comment on above: Elevated Blood Press ures Start: 08-13-2021 Telephone encounter Godfrey Clayton vice president education/Oncology Comment on above: Research ([facility] 1819) Start: 08-12-2021 Refill Godfrey Bhardwaj i, APRN.BELLOWS FILLER Work Phone: Hematology/Oncology Comment on above: Refill Request Start: 08-12-2021 Telephone encounter Lalo mauricio MD Work Phone: Cardiology Comment on above: Blood Pressure Research ([facility] 1819) Start: 08-11-2021 Telephone encounter Hermila Ruiz RN Work Phone: Hematology/Oncology Comment on above: Research ([facility] 1819) Start: 08-08-2021 End: 08-08-2021 ambulatory Lab [facility] Main Ca 1 Work Phone: Hematology/Oncology Comment on above: Malignant neoplasm o f right kidney, except renal pelvis (HCC) Renal cell carcinoma , unspecified laterality (HCC) (Primary Dx) Other specified diso rders of kidney and ureter Start: 08-08-2021 End: 08-09-2021 ambulatory DAKSHA TURNER Facility:[facility] Start: 08-08-2021 End: 08-09-2021 ambulatory Chair 1 Breast Work Phone: Hematology/Oncology Comment on above: Renal cell carcinoma of right kidney (HCC) (Primary Dx) Start: 08-08-2021 End: 08-08-2021 Nursing evaluation of patient and report Godfrey Clayton vice president education/Oncology Comment on above: Renal cell carcinoma of right kidney (HCC) (Primary Dx) Start: 08-08-2021 End: 08-08-2021 Patient encounter procedure Godfrey Ohara APRN.BELLOWS FILLER Work Phone: [facility] Start: 08-06-2021 End: 08-06-2021 ambulatory DAKSHA Gary SIMONPHILIP Facility:[facility] Start: 08-06-2021 Chart abstracting Godfrey acuña APRN.BELLOWS FILLER Work Phone: Hematology/Oncology Start: 08-06-2021 End: 08-07-2021 ambulatory KENNETH CHESTER Facility:[facility] Start: 08-06-2021 End: 08-06-2021 Subsequent hospital visit by physician Ct Prep Qb Radiology Comment on above: Malignant neoplasm o f kidney, unspecified laterality (HCC) [C64.9] Start: 08-06-2021 End: 08-06-2021 ambulatory Godfrey Ohara APRN.BELLOWS FILLER Work Phone: Hematology/Oncology Comment on above: Renal cell carcinoma , unspecified laterality (HCC) (Primary Dx); Hypertension, unspecified type Start: 08-06-2021 End: 08-06-2021 Nursing evaluation of patient and report Godfrey Clayton RN Hematology/Oncology Comment on above: Renal cell carcinoma of right kidney (HCC) (Primary Dx) Start: 08-06-2021 End: 08-06-2021 Patient encounter procedure Godfrey Ohara APRN.BELLOWS FILLER Work Phone: [facility] Start: 08-05-2021 End: 08-06-2021 ambulatory ATUL FUNG Facility:[facility] Start: 08-03-2021 Telephone encounter Atul Fung MD Work Phone: Cardiology Comment on above: Patient Education Start: 07-31-2021 End: 07-31-2021 ambulatory LALO ACEVEDO Facility:[facility] Start: 07-31-2021 End: 07-31-2021 ambulatory LALO ACEVEDO Facility:[facility] Start: 07-31-2021 End: 07-31-2021 Patient encounter procedure Lalo Acevedo MD Work Phone: Cardiology Comment on above: Nonrheumatic mitral valve regurgitation (Primary Dx) Start: 07-30-2021 Telephone encounter Tayler Moss RN Cardiology Comment on above: Patient Education (t ee) Start: 07-29-2021 Telephone encounter Godfery Clayton RN Hematology/Oncology Comment on above: Research ([facility] 1819) Start: 07-28-2021 Orders Only Godfrey Bhardwaj i, APRN.BELLOWS FILLER Work Phone: Hematology/Oncology Comment on above: Malignant neoplasm o f right kidney, except renal pelvis (HCC) (Primary Dx); Malignant neoplasm of kidney excluding renal pelvis, unspecified laterality (HCC) Start: 07-25-2021 Chart abstracting Rahul ([facility] Roberto Bennett Work Phone: Hematology/Oncology Start: 07-25-2021 Telephone encounter Godfrey Clayton RN Hematology/Oncology Comment on above: Research ([facility] 1819) Start: 07-24-2021 Telephone encounter Godfrey nixon APRN.BELLOWS FILLER Work Phone: Hematology/Oncology Comment on above: Results Start: 07-24-2021 End: 07-24-2021 ambulatory [facility] Facility:[facility] Start: 07-24-2021 End: 07-25-2021 ambulatory Godfrey Ohara APRN.BELLOWS FILLER Work Phone: Hematology/Oncology Comment on above: Malignant neoplasm o f kidney excluding renal pelvis, unspecified laterality (HCC) (Primary Dx); Metastatic renal cell carcinoma, unspecified laterality (HCC) Start: 07-24-2021 End: 07-24-2021 Nursing evaluation of patient and report Godfrey Clayton RN Hematology/Oncology Comment on above: Renal cell carcinoma of right kidney (HCC) (Primary Dx) Start: 07-24-2021 End: 07-24-2021 Patient encounter procedure Godfrey Ohara APRN.BELLOWS FILLER Work Phone: [facility] Start: 07-23-2021 Telephone encounter Godfrey Clayton RN Hematology/Oncology Comment on above: Research ([facility] 1819) Start: 07-22-2021 End: 07-22-2021 ambulatory Lalo Acevedo MD Work Phone: Cardiology Comment on above: Nonrheumatic mitral valve regurgitation (Primary Dx); Cardiomyopathy, nonischemic (HCC) Start: 07-22-2021 End: 07-22-2021 Telemedicine consultation with patient Lalo Acevedo MD Work Phone: [facility] Start: 07-21-2021 Chart abstracting Godfrey acuña APRN.CNP Work Phone: Hematology/Oncology Start: 07-21-2021 Telephone encounter Financial Navigator Cullen Work Phone: Hematology/Oncology Comment on above: Benefits Investigati on Start: 07-21-2021 End: 07-21-2021 Nursing evaluation of patient and report Godfrey Clayton vice president education/Oncology Comment on above: Malignant neoplasm o f [...] Start: 07-17-2021 End: 07-17-2021 Patient encounter procedure [facility] Start: 07-15-2021 End: 07-15-2021 ambulatory [facility] Facility:[facility] Start: 07-14-2021 End: 07-15-2021 Orders Only Godfrey Ohara APRN.BELLOWS FILLER Work Phone: Hematology/Oncology Comment on above: Malignant neoplasm o f kidney excluding renal pelvis, unspecified laterality (HCC) (Primary Dx); Renal cell carcinoma, unspecified laterality (HCC) Malignant neoplasm o f right kidney, except renal pelvis (HCC) (Primary Dx) Anxiety (Primary Dx) Start: 07-11-2021 Telephone encounter Godfrey Clayton vice president education/Oncology Comment on above: Research ([facility] 1574) Malignant neoplasm o f right kidney, except renal pelvis (HCC) (Primary Dx); Malignant neoplasm of kidney excluding renal pelvis, unspecified laterality (HCC) Start: 07-08-2021 End: 07-08-2021 ambulatory KENNETH CHESTER Facility:[facility] Start: 07-08-2021 End: 07-08-2021 Nursing evaluation of patient and report Godfrey Clayton RN Hematology/Oncology Comment on above: Malignant neoplasm o f kidney excluding renal pelvis, unspecified laterality (HCC) (Primary Dx) Start: 07-07-2021 Telephone encounter Godfrey Clayton RN Hematology/Oncology Comment on above: Research ([facility] 1820) Start: 07-02-2021 End: 07-02-2021 ambulatory Kenneth Chester MD Work Phone: Hematology/Oncology Comment on above: Malignant neoplasm o f kidney, unspecified laterality (HCC); Malignant neoplasm of kidney excluding renal pelvis, unspecified laterality (HCC); Chest wall mass Start: 07-02-2021 End: 07-02-2021 Patient encounter procedure Kenneth Chester MD Work Phone: [facility] Start: 07-01-2021 End: 07-01-2021 ambulatory ANNE-MARIE CHAPARRO Facility:[facility] Start: 06-30-2021 End: 07-01-2021 ambulatory JOHN GTZ Facility:[facility] Start: 06-30-2021 End: 06-30-2021 Subsequent hospital visit by physician [facility] Comment on above: Malignant neoplasm o f kidney, unspecified laterality (HCC) [C64.9] Start: 06-30-2021 End: 06-30-2021 ambulatory ADRIANA HODGE Facility:[facility] Start: 06-30-2021 End: 06-30-2021 Subsequent hospital visit by physician [facility] Start: 06-27-2021 End: 06-27-2021 ambulatory ADRIANA HODGE Facility:[facility] Start: 06-27-2021 End: 06-27-2021 Subsequent hospital [...] 06-20-2021 End: 06-20-2021 ambulatory DAWIT URBINA MD Facility:[facility] Start: 06-19-2021 End: 06-19-2021 Emergency department patient visit Family Physician Unavailable Facility:[facility] Start: 06-19-2021 End: 06-19-2021 Emergency department patient visit Family Unavailable [facility] Start: 06-30-2004 End: 11-26-2014 Patient encounter status E[facility] Work Phone: [facility] Procedures Date Procedure Procedure Detail [...] Nahomyrosie Amor Start: 02-06-[address] JULIENEN HERNANDEZ Comment on above: Performed By: #### T +S #### [place] [address] Start: 01-29-2022 Plain chest X-ray Dr. Tangela Turner Work Phone: Start: 01-27-[address] JULIENNE HERNANDEZ Comment on above: Performed By: #### C BC #### [place] [address] Start: 01-20-2022 Plain chest X-ray Dr. Tangela [...] Comment: Speci men Type: BLOOD SPECIMENOrdering Facility: [facility] Address: [address] [place] [address] Performed By: #### T [id number] ####CC MAIN BLOOD BANKCLIA [id number] [facility] [id number] [place] Start: 10-20-2021 Adult depression scr eening assessment Haylee Wilburn MD Work Phone: Start: 09-23-2021 Lipid 1996 panel - S desirae or Plasma Ekg/Holter [facility] Work Phone: Start: 09-22-2021 End: 09-22-2021 Ecg [...] Detail Author Start: 07-25-2028 Urine microalbumin profile [facility] Start: 09-23-2026 Lipid panel Lipid Screening [facility] Start: 09-23-2026 LIPID SCREEN LIPID SCREEN [facility] Start: 04-09-2025 DIABETES SCREEN DIABETES SCREEN [facility] Start: 04-09-2025 Diabetes Screening Diabetes Screenin g [facility] Start: 02-17-2025 DIABETES SCREEN DIABETES SCREEN [facility] Start: 11-05-2024 LIPID SCREEN LIPID SCREEN [facility] Start: 11-05-2024 PROSTATE CANCER SCRE ENING DISCUSSION PROSTATE CANCER SCREENING DISCUSSION [facility] Start: 11-05-2024 Prostate specific an tigen measurement Prostate Cancer Screening Discussion [facility] Start: 10-27-2024 DIABETES SCREEN DIABETES SCREEN [facility] Start: 10-21-2024 Patient discharge [facility] Start: 10-21-2024 Inhalation therapy procedure [facility] Start: 10-20-2024 [facility] Start: 10-20-2024 Dual pressure sponta neous ventilation support [facility] Start: 10-19-2024 Ova and Parasites Ova and Parasites [facility] Start: 10-19-2024 Referral to gastroenterology service [facility] Start: 10-19-2024 Chemotherapy care management [facility] Start: 10-19-2024 Following clinical p athway protocol [facility] Start: 10-19-2024 Ambulation without limitation [facility] Start: 10-19-2024 Assessment of risk o f venous thromboembolism [facility] Start: 10-19-2024 Care regimes management [facility] Start: 10-19-2024 Insertion of cathete r into peripheral vein [facility] Start: 10-19-2024 Measuring intake and output [facility] Start: 10-19-2024 Notification of physician [facility] Start: 10-19-2024 Oxygen therapy [facility] Start: 10-19-2024 Providing care accor ding to standard [facility] Start: 10-19-2024 Referral to service [facility] Start: 10-19-2024 Tobacco use cessatio n education [facility] Start: 10-19-2024 End: 10-19-2024 [facility] Start: 10-19-2024 Lactoferrin [Presenc e] in Stool by Immunoassay [facility] Start: 10-19-2024 Urinalysis complete panel - Urine [facility] Start: 10-19-2024 Verification routine [facility] Start: 10-19-2024 Admission procedure [facility] Start: 10-19-2024 Hospital admission, emergency, from emergency room, medical nature [facility] Start: 10-18-2024 Enteric precautions [facility] Start: 10-09-2024 DIABETES SCREEN DIABETES SCREEN [...] 08-14-2024 Evaluation of diagno stic study results [facility] Start: 08-08-2024 DIABETES SCREEN DIABETES SCREEN [facility] Start: 08-06-2024 DIABETES SCREEN DIABETES SCREEN [facility] Start: 07-24-2024 DIABETES SCREEN DIABETES SCREEN [facility] Start: 07-21-2024 DIABETES SCREEN DIABETES SCREEN [facility] Start: 06-20-2024 DIABETES SCREEN DIABETES SCREEN [facility] Start: 11-07-2023 Covid-19 Vaccine () Covid-19 Vaccine () [facility] Start: 11-07-2023 Influenza vaccination Influenza Vacc ine (#1) [facility] Start: 02-16-2023 BP CONTROLLED (<130/80) BP CON TROLLED (<130/80) [facility] Start: 12-17-2022 Patient discharge [facility] Start: 12-16-2022 Admission procedure [facility] Start: 12-15-2022 End: 12-16-2022 [facility] Start: 12-15-2022 Continuous positive airway pressure ventilation treatment [facility] Start: 12-15-2022 Ambulation without limitation [facility] Start: 12-15-2022 Assessment of risk o f venous thromboembolism [facility] Start: 12-15-2022 Fluid restriction [facility] Start: 12-15-2022 Insertion of cathete r into peripheral vein [facility] Start: 12-15-2022 Measuring intake and output [facility] Start: 12-15-2022 Oxygen therapy [facility] Start: 12-15-2022 Providing care accor ding to standard [facility] Start: 12-15-2022 Referral to service [facility] Start: 12-15-2022 Admission procedure [facility] Start: 12-15-2022 Following clinical p athway protocol [facility] Start: 12-15-2022 Transfusion of blood product [facility] Start: 12-15-2022 Patient referral to dietitian [facility] Start: 10-20-2022 Adult depression scr eening assessment DEPRESSION SCREENING [facility] Start: 09-23-2022 BP CONTROLLED (<130/80) BP CON TROLLED (<130/80) [facility] Start: 09-23-2022 Hepatitis B surface antibody level LDL CHOLESTEROL [facility] Start: 07-06-2022 FUV, Provider: Aravind Hernandez, Status: Pen, Time: 1:40 PM [facility]UV, Provider: Aravind Hernandez, Status: Pen, Time: 1:40 PM [id number] 400 DO Work Phone: Start: 06-29-2022 Patient discharge [facility] Start: 06-28-2022 Following clinical p athway protocol [facility] Start: 06-28-2022 Assessment of risk o f venous thromboembolism [facility] Start: 06-28-2022 Continuous positive airway pressure ventilation treatment [facility] Start: 06-28-2022 Inhalation therapy procedure [facility] Start: 06-28-2022 Insertion of cathete r into peripheral vein [facility] Start: 06-28-2022 Introduction of urin rebecca catheter [facility] Start: 06-28-2022 Measuring intake and output [facility] Start: 06-28-2022 Oxygen therapy [facility] Start: 06-28-2022 End: 06-28-2022 Patient referral to dietitian [facility] Start: 06-28-2022 Providing care accor ding to standard [facility] Start: 06-28-2022 Provision of activit y privileges [facility] Start: 06-28-2022 Referral to service [facility] Start: 06-28-2022 End: 06-28-2022 [facility] Start: 06-28-2022 Verification routine [facility] Start: 06-28-2022 Admission procedure [facility] Start: 06-27-2022 Troponin I measurement [facility] Start: 06-27-2022 [facility] Start: 06-20-2022 ANNUAL PCP TEAM INSTALLER INSPECTOR FINAL SEFERINO DISEASE VISIT ANNUAL PCP TEAM CHRONIC DISEASE VISIT [facility] Start: 05-27-2022 Patient referral [facility] Work Phone: Start: 05-20-2022 Patient discharge [facility] Start: 05-19-2022 Continuous positive airway pressure ventilation treatment [facility] Start: 05-18-2022 Dual pressure sponta neous ventilation support [facility] Start: 05-18-2022 Following clinical p athway protocol [facility] Start: 05-18-2022 Assessment of risk o f venous thromboembolism [facility] Start: 05-18-2022 Continuous pulse oximetry [facility] Start: 05-18-2022 Insertion of cathete r into peripheral vein [facility] Start: 05-18-2022 Measuring intake and output [facility] Start: 05-18-2022 Oxygen therapy [facility] Start: 05-18-2022 Providing care accor ding to standard [facility] Start: 05-18-2022 Provision of activit y privileges [facility] Start: 05-18-2022 [facility] Start: 05-18-2022 Verification routine [facility] Start: 05-18-2022 Admission procedure [facility] Start: 05-18-2022 [facility] Start: 05-18-2022 Patient referral to dietitian [facility] Start: 04-17-2022 Prothrombin time [facility] Start: 04-16-2022 Patient discharge [facility] Start: 04-16-2022 Prothrombin time [facility] Start: 04-16-2022 Oxygen therapy [facility] Start: 04-15-2022 [facility] Start: 04-15-2022 Prothrombin time [facility] Start: 04-14-2022 Continuous pulse oximetry [facility] Start: 04-14-2022 [facility] Start: 04-14-2022 Application of intermittent pneumatic compression device [facility] Start: 04-14-2022 Following clinical p athway protocol [facility] Start: 04-14-2022 Chemotherapy care management [facility] Start: 04-14-2022 Elevation of affecte d extremity [facility] Start: 04-14-2022 Fluid restriction [facility] Start: 04-14-2022 Notification of physician [facility] Start: 04-14-2022 Patient education [facility] Start: 04-14-2022 End: 04-14-2022 [facility] Start: 04-14-2022 Continuous positive airway pressure ventilation treatment [facility] Start: 04-13-2022 Admission procedure [facility] Start: 03-25-2022 End: 05-25-2022 CBC W Auto Differential panel - Blood CBC + DIFF Lab Routine Renal cell carcinoma of right kidney (HCC) Expected: 03/25/2022, Expires: 05/25/2022 [facility] Work Phone: Comment on above: Expected: 03/25/2022 , Expires: 05/25/2022 Start: 03-25-2022 End: 05-25-2022 Comprehensive metabolic 2000 panel - Serum or Plasma COMP METABOLIC PANEL Lab Routine Renal cell carcinoma of right kidney (HCC) Expected: 03/25/2022, Expires: 05/25/2022 [facility] Work Phone: Comment on above: Expected: 03/25/2022 , Expires: 05/25/2022 Start: 03-25-2022 End: 05-25-2022 Thyrotropin [Units/volume] in Serum or Plasma TSH BLD Lab Routine Renal cell carcinoma of right kidney (HCC) Expected: 03/25/2022, Expires: 05/25/2022 [facility] Work Phone: Comment on above: Expected: 03/25/2022 , Expires: 05/25/2022 Start: 03-08-2022 DEPRESSION ASSESSMENT DEPRESSION ASS ESSMENT [facility] Start: 02-16-2022 End: 04-18-2022 Basic metabolic 2000 panel - Serum or Plasma BASIC METABOLIC PNL Lab Routine Acute decompensated heart failure (HCC) Paroxysmal atrial fibrillation (HCC) Expected: 02/16/2022, Expires: 04/18/2022 [facility] Work Phone: Comment on above: Expected: 02/16/2022 , Expires: 04/18/2022 Start: 02-08-2022 End: 02-09-2023 Bisacodyl Rectal 10 mg Suppository Daily PRN ; Suppository (DULCOLAX)DOSE = 10 mg Rectal Daily, PRN Constipation Start: 08-Feb-2022 End: 08-Feb-2023 Ordered: 08-Feb-2022 [facility] Start: 02-06-2022 End: 02-07-2023 [facility] Comment on above: Minimize narcotics May be [...] reaches 100 mg/dL or greater. Start: 02-06-2022 [facility], Provider: Aravind Hernandez, Status: Pen, Time: 9:30 AM [facility], Provider: Aravind Hernandez, Status: Pen, Time: 9:30 AM [id number] SJ 400 DO Work Phone: Start: 01-29-2022 Chemotherapy care management [facility] Start: 01-20-2022 Plain chest X-ray Chest 1 View (Portable) [facility] Work Phone: Start: 01-20-2022 XR Chest Single view [facility] Work Phone: Start: 12-30-2021 End: 03-01-2022 aPTT in Platelet poor plasma by Coagulation assay ACTIVATED PTT Lab Routine Renal cell carcinoma of right kidney (HCC) Expected: 12/30/2021 (Approximate), Expires: 03/01/2022 [facility] Work Phone: Comment on above: Expected: 12/30/2021 (Approximate), Expires: 03/01/2022 Start: 12-30-2021 End: 03-01-2022 CBC panel - Blood by Automated count CBC Lab Routine Renal cell carcinoma of right kidney (HCC) Expected: 12/30/2021 (Approximate), Expires: 03/01/2022 [facility] Work Phone: Comment on above: Expected: 12/30/2021 (Approximate), Expires: 03/01/2022 Start: 12-30-2021 End: 03-01-2022 Comprehensive metabolic 2000 panel - Serum or Plasma COMP METABOLIC PANEL Lab Routine Renal cell carcinoma of right kidney (HCC) Expected: 12/30/2021 (Approximate), Expires: 03/01/2022 [facility] Work Phone: Comment on above: Expected: 12/30/2021 (Approximate), Expires: 03/01/2022 Start: 12-30-2021 End: 03-01-2022 CONFIRM BLOOD TYPE CONFIRM BLOOD TYPE Blood Bank Routine Renal cell carcinoma of right kidney (HCC) Expected: 12/30/2021 (Approximate), Expires: 03/01/2022 [facility] Work Phone: Comment on above: Expected: 12/30/2021 (Approximate), Expires: 03/01/2022 Start: 12-30-2021 End: 03-01-2022 PT panel - Platelet poor plasma by Coagulation assay PROTHROMBIN TIME/PT Lab Routine Renal cell carcinoma of right kidney (HCC) Expected: 12/30/2021 (Approximate), Expires: 03/01/2022 [facility] Work Phone: Comment on above: Expected: 12/30/2021 (Approximate), Expires: 03/01/2022 Start: 12-30-2021 End: 12-30-2022 SARS-CoV-2 (COVID-19) RNA [Presence] in Respiratory specimen by SANDOVAL with probe detection PRE-PROCEDURE & PRE-OPERATIVE COVID Microbiology Routine Renal cell carcinoma of right kidney (HCC) Expected: 12/30/2021, Expires: 12/30/2022 [facility] Work Phone: Comment on above: Expected: 12/30/2021 , Expires: 12/30/2022 Start: 12-30-2021 End: 03-01-2022 TYPE AND SCREEN,30 DAY TYPE AND SCREEN,30 DAY Blood Bank Routine Renal cell carcinoma of right kidney (HCC) Expected: 12/30/2021 (Approximate), Expires: 03/01/2022 [facility] Work Phone: Comment on above: Expected: 12/30/2021 (Approximate), Expires: 03/01/2022 Start: 12-09-2021 Patient discharge [facility] Work Phone: Start: 12-08-2021 Inhalation therapy procedure [facility] Work Phone: Start: 12-07-2021 Chemotherapy care management [facility] Work Phone: Start: 12-07-2021 Ambulation without limitation [facility] Work Phone: Start: 12-07-2021 Assessment of risk o f venous thromboembolism [facility] Work Phone: Start: 12-07-2021 Catheterization of vein [facility] Work Phone: Start: 12-07-2021 Insertion of cathete r into peripheral vein [facility] Work Phone: Start: 12-07-2021 Measuring intake and output [facility] Work Phone: Start: 12-07-2021 Providing care accor ding to standard [facility] Work Phone: Start: 12-07-2021 [facility] Work Phone: Start: 12-07-2021 Verification routine [facility] Work Phone: Start: 12-07-2021 Admission procedure [facility] Work Phone: Start: 12-07-2021 Following clinical p athway protocol [facility] Work Phone: Start: 12-07-2021 Troponin I measurement [facility] Work Phone: Start: 12-06-2021 Influenza vaccination Influenza Vacc ine (#1) [facility] Start: 11-06-2021 Influenza vaccination [facility] Start: 10-16-2021 End: 10-17-2021 aPTT in Platelet poor plasma by Coagulation assay ACTIVATED PTT Lab STAT Malignant neoplasm of right kidney, except renal pelvis (HCC) Expected: 10/16/2021, Expires: 10/17/2021 [facility] Work Phone: Comment on above: Expected: 10/16/2021 , Expires: 10/17/2021 Start: 10-16-2021 End: 10-17-2021 CBC W Auto Differential panel - Blood CBC + DIFF Lab STAT Malignant neoplasm of right kidney, except renal pelvis (HCC) Expected: 10/16/2021, Expires: 10/17/2021 [facility] Work Phone: Comment on above: Expected: 10/16/2021 , Expires: 10/17/2021 Start: 10-16-2021 End: 10-17-2021 Comprehensive metabolic 2000 panel - Serum or Plasma COMP METABOLIC PANEL Lab STAT Malignant neoplasm of right kidney, except renal pelvis (HCC) Expected: 10/16/2021, Expires: 10/17/2021 [facility] Work Phone: Comment on above: Expected: 10/16/2021 , Expires: 10/17/2021 Start: 10-16-2021 End: 09-26-2022 Ct abdomen & pelvis w/contrast material CT ABD/PEL W IVCON Radiology Routine Malignant neoplasm of right kidney, except renal pelvis (HCC) Expected: 10/16/2021, Expires: 09/26/2022 [facility] Work Phone: Comment on above: Expected: 10/16/2021 , Expires: 09/26/2022 Start: 10-16-2021 End: 09-26-2022 Ct thorax w/contrast material CT CHEST W IVCON Radiology Routine Malignant neoplasm of right kidney, except renal pelvis (HCC) Expected: 10/16/2021, Expires: 09/26/2022 [facility] Work Phone: Comment on above: Expected: 10/16/2021 , Expires: 09/26/2022 Start: 10-16-2021 End: 10-17-2021 Lactate dehydrogenase [Enzymatic activity/volume] in Serum or Plasma LD LACTATE DEHYDRO Lab STAT Malignant neoplasm of right kidney, except renal pelvis (HCC) Expected: 10/16/2021, Expires: 10/17/2021 [facility] Work Phone: Comment on above: Expected: 10/16/2021 , Expires: 10/17/2021 Start: 10-16-2021 End: 10-17-2021 Magnesium [Mass/volume] in Serum or Plasma MAGNESIUM BLD Lab STAT Malignant neoplasm of right kidney, except renal pelvis (HCC) Expected: 10/16/2021, Expires: 10/17/2021 [facility] Work Phone: Comment on above: Expected: 10/16/2021 , Expires: 10/17/2021 Start: 10-16-2021 End: 10-17-2021 Phosphate [Mass/volume] in Serum or Plasma PHOSPHORUS INORGANIC Lab STAT Malignant neoplasm of right kidney, except renal pelvis (HCC) Expected: 10/16/2021, Expires: 10/17/2021 [facility] Work Phone: Comment on above: Expected: 10/16/2021 , Expires: 10/17/2021 Start: 10-16-2021 End: 10-17-2021 PT panel - Platelet poor plasma by Coagulation assay PROTHROMBIN TIME/PT Lab STAT Malignant neoplasm of right kidney, except renal pelvis (HCC) Expected: 10/16/2021, Expires: 10/17/2021 [facility] Work Phone: Comment on above: Expected: 10/16/2021 , Expires: 10/17/2021 Start: 10-16-2021 End: 10-17-2021 Urate [Mass/volume] in Serum or Plasma URIC ACID BLOOD Lab STAT Malignant neoplasm of right kidney, except renal pelvis (HCC) Expected: 10/16/2021, Expires: 10/17/2021 [facility] Work Phone: Comment on above: Expected: 10/16/2021 , Expires: 10/17/2021 Start: 10-02-2021 End: 10-03-2021 aPTT in Platelet poor plasma by Coagulation assay ACTIVATED PTT Lab STAT Malignant neoplasm of right kidney, except renal pelvis (HCC) Expected: 10/02/2021, Expires: 10/03/2021 [facility] Work Phone: Comment on above: Expected: 10/02/2021 , Expires: 10/03/2021 Start: 10-02-2021 End: 10-03-2021 CBC W Auto Differential panel - Blood CBC + DIFF Lab STAT Malignant neoplasm of right kidney, except renal pelvis (HCC) Expected: 10/02/2021, Expires: 10/03/2021 [facility] Work Phone: Comment on above: Expected: 10/02/2021 , Expires: 10/03/2021 Start: 10-02-2021 End: 10-03-2021 CLINICAL TRIAL DRAW CLINICAL TRIAL DRAW Lab STAT Malignant neoplasm of right kidney, except renal pelvis (HCC) Expected: 10/02/2021, Expires: 10/03/2021 [facility] Work Phone: Comment on above: Expected: 10/02/2021 , Expires: 10/03/2021 Start: 10-02-2021 End: 10-03-2021 Comprehensive metabolic 2000 panel - Serum or Plasma COMP METABOLIC PANEL Lab STAT Malignant neoplasm of right kidney, except renal pelvis (HCC) Expected: 10/02/2021, Expires: 10/03/2021 [facility] Work Phone: Comment on above: Expected: 10/02/2021 , Expires: 10/03/2021 Start: 10-02-2021 End: 10-03-2021 Lactate dehydrogenase [Enzymatic activity/volume] in Serum or Plasma LD LACTATE DEHYDRO Lab STAT Malignant neoplasm of right kidney, except renal pelvis (HCC) Expected: 10/02/2021, Expires: 10/03/2021 [facility] Work Phone: Comment on above: Expected: 10/02/2021 , Expires: 10/03/2021 Start: 10-02-2021 End: 10-03-2021 Magnesium [Mass/volume] in Serum or Plasma MAGNESIUM BLD Lab STAT Malignant neoplasm of right kidney, except renal pelvis (HCC) Expected: 10/02/2021, Expires: 10/03/2021 [facility] Work Phone: Comment on above: Expected: 10/02/2021 , Expires: 10/03/2021 Start: 10-02-2021 End: 10-03-2021 Phosphate [Mass/volume] in Serum or Plasma PHOSPHORUS INORGANIC Lab STAT Malignant neoplasm of right kidney, except renal pelvis (HCC) Expected: 10/02/2021, Expires: 10/03/2021 [facility] Work Phone: Comment on above: Expected: 10/02/2021 , Expires: 10/03/2021 Start: 10-02-2021 End: 10-03-2021 PT panel - Platelet poor plasma by Coagulation assay PROTHROMBIN TIME/PT Lab STAT Malignant neoplasm of right kidney, except renal pelvis (HCC) Expected: 10/02/2021, Expires: 10/03/2021 [facility] Work Phone: Comment on above: Expected: 10/02/2021 , Expires: 10/03/2021 Start: 10-02-2021 End: 10-03-2021 Thyrotropin [Units/volume] in Serum or Plasma TSH BLD Lab STAT Malignant neoplasm of right kidney, except renal pelvis (HCC) Expected: 10/02/2021, Expires: 10/03/2021 [facility] Work Phone: Comment on above: Expected: 10/02/2021 , Expires: 10/03/2021 Start: 10-02-2021 End: 10-03-2021 Thyroxine (T4) free [Mass/volume] in Serum or Plasma T4 FREE/FREE THYROX Lab STAT Malignant neoplasm of right kidney, except renal pelvis (HCC) Expected: 10/02/2021, Expires: 10/03/2021 [facility] Work Phone: Comment on above: Expected: 10/02/2021 , Expires: 10/03/2021 Start: 10-02-2021 End: 10-03-2021 Triiodothyronine (T3) Free [Mass/volume] in Serum or Plasma T3 FREE BLD Lab STAT Malignant neoplasm of right kidney, except renal pelvis (HCC) Expected: 10/02/2021, Expires: 10/03/2021 [facility] Work Phone: Comment on above: Expected: 10/02/2021 , Expires: 10/03/2021 Start: 10-02-2021 End: 10-03-2021 Urate [Mass/volume] in Serum or Plasma URIC ACID BLOOD Lab STAT Malignant neoplasm of right kidney, except renal pelvis (HCC) Expected: 10/02/2021, Expires: 10/03/2021 [facility] Work Phone: Comment on above: Expected: 10/02/2021 , Expires: 10/03/2021 Start: 08-19-2021 End: 08-20-2021 aPTT in Platelet poor plasma by Coagulation assay ACTIVATED PTT Lab STAT Malignant neoplasm of right kidney, except renal pelvis (HCC) Expected: 08/19/2021, Expires: 08/20/2021 [facility] Work Phone: Comment on above: Expected: 08/19/2021 , Expires: 08/20/2021 Start: 08-19-2021 End: 08-20-2021 CBC W Auto Differential panel - Blood CBC + DIFF Lab STAT Malignant neoplasm of right kidney, except renal pelvis (HCC) Expected: 08/19/2021, Expires: 08/20/2021 [facility] Work Phone: Comment on above: Expected: 08/19/2021 , Expires: 08/20/2021 Start: 08-19-2021 End: 08-20-2021 Comprehensive metabolic 2000 panel - Serum or Plasma COMP METABOLIC PANEL Lab STAT Malignant neoplasm of right kidney, except renal pelvis (HCC) Expected: 08/19/2021, Expires: 08/20/2021 [facility] Work Phone: Comment on above: Expected: 08/19/2021 , Expires: 08/20/2021 Start: 08-19-2021 End: 08-20-2021 Lactate dehydrogenase [Enzymatic activity/volume] in Serum or Plasma LD LACTATE DEHYDRO Lab STAT Malignant neoplasm of right kidney, except renal pelvis (HCC) Expected: 08/19/2021, Expires: 08/20/2021 [facility] Work Phone: Comment on above: Expected: 08/19/2021 , Expires: 08/20/2021 Start: 08-19-2021 End: 08-20-2021 Magnesium [Mass/volume] in Serum or Plasma MAGNESIUM BLD Lab STAT Malignant neoplasm of right kidney, except renal pelvis (HCC) Expected: 08/19/2021, Expires: 08/20/2021 [facility] Work Phone: Comment on above: Expected: 08/19/2021 , Expires: 08/20/2021 Start: 08-19-2021 End: 08-20-2021 Phosphate [Mass/volume] in Serum or Plasma PHOSPHORUS INORGANIC Lab STAT Malignant neoplasm of right kidney, except renal pelvis (HCC) Expected: 08/19/2021, Expires: 08/20/2021 [facility] Work Phone: Comment on above: Expected: 08/19/2021 , Expires: 08/20/2021 Start: 08-19-2021 End: 08-20-2021 PT panel - Platelet poor plasma by Coagulation assay PROTHROMBIN TIME/PT Lab STAT Malignant neoplasm of right kidney, except renal pelvis (HCC) Expected: 08/19/2021, Expires: 08/20/2021 [facility] Work Phone: Comment on above: Expected: 08/19/2021 , Expires: 08/20/2021 Start: 08-19-2021 End: 08-20-2021 Urate [Mass/volume] in Serum or Plasma URIC ACID BLOOD Lab STAT Malignant neoplasm of right kidney, except renal pelvis (HCC) Expected: 08/19/2021, Expires: 08/20/2021 [facility] Work Phone: Comment on above: Expected: 08/19/2021 , Expires: 08/20/2021 Start: 08-07-2021 End: 08-08-2021 aPTT in Platelet poor plasma by Coagulation assay ACTIVATED PTT Lab STAT Malignant neoplasm of right kidney, except renal pelvis (HCC) Expected: 08/07/2021, Expires: 08/08/2021 [facility] Work Phone: Comment on above: Expected: 08/07/2021 , Expires: 08/08/2021 Start: 08-07-2021 End: 08-08-2021 CBC W Auto Differential panel - Blood CBC + DIFF Lab STAT Malignant neoplasm of right kidney, except renal pelvis (HCC) Expected: 08/07/2021, Expires: 08/08/2021 [facility] Work Phone: Comment on above: Expected: 08/07/2021 , Expires: 08/08/2021 Start: 08-07-2021 End: 08-08-2021 CLINICAL TRIAL DRAW CLINICAL TRIAL DRAW Lab STAT Malignant neoplasm of right kidney, except renal pelvis (HCC) Expected: 08/07/2021, Expires: 08/08/2021 [facility] Work Phone: Comment on above: Expected: 08/07/2021 , Expires: 08/08/2021 Start: 08-07-2021 End: 08-08-2021 Comprehensive metabolic 2000 panel - Serum or Plasma COMP METABOLIC PANEL Lab STAT Malignant neoplasm of right kidney, except renal pelvis (HCC) Expected: 08/07/2021, Expires: 08/08/2021 [facility] Work Phone: Comment on above: Expected: 08/07/2021 , Expires: 08/08/2021 Start: 08-07-2021 End: 08-08-2021 Lactate dehydrogenase [Enzymatic activity/volume] in Serum or Plasma LD LACTATE DEHYDRO Lab STAT Malignant neoplasm of right kidney, except renal pelvis (HCC) Expected: 08/07/2021, Expires: 08/08/2021 [facility] Work Phone: Comment on above: Expected: 08/07/2021 , Expires: 08/08/2021 Start: 08-07-2021 End: 08-08-2021 Magnesium [Mass/volume] in Serum or Plasma MAGNESIUM BLD Lab STAT Malignant neoplasm of right kidney, except renal pelvis (HCC) Expected: 08/07/2021, Expires: 08/08/2021 [facility] Work Phone: Comment on above: Expected: 08/07/2021 , Expires: 08/08/2021 Start: 08-07-2021 End: 08-08-2021 Phosphate [Mass/volume] in Serum or Plasma PHOSPHORUS INORGANIC Lab STAT Malignant neoplasm of right kidney, except renal pelvis (HCC) Expected: 08/07/2021, Expires: 08/08/2021 [facility] Work Phone: Comment on above: Expected: 08/07/2021 , Expires: 08/08/2021 Start: 08-07-2021 End: 08-08-2021 PT panel - Platelet poor plasma by Coagulation assay PROTHROMBIN TIME/PT Lab STAT Malignant neoplasm of right kidney, except renal pelvis (HCC) Expected: 08/07/2021, Expires: 08/08/2021 [facility] Work Phone: Comment on above: Expected: 08/07/2021 , Expires: 08/08/2021 Start: 08-07-2021 End: 08-08-2021 Urate [Mass/volume] in Serum or Plasma URIC ACID BLOOD Lab STAT Malignant neoplasm of right kidney, except renal pelvis (HCC) Expected: 08/07/2021, Expires: 08/08/2021 [facility] Work Phone: Comment on above: Expected: 08/07/2021 , Expires: 08/08/2021 Start: 08-05-2021 End: 08-06-2021 aPTT in Platelet poor plasma by Coagulation assay ACTIVATED PTT Lab STAT Malignant neoplasm of right kidney, except renal pelvis (HCC) Expected: 08/05/2021, Expires: 08/06/2021 [facility] Work Phone: Comment on above: Expected: 08/05/2021 , Expires: 08/06/2021 Start: 08-05-2021 End: 08-06-2021 CBC W Auto Differential panel - Blood CBC + DIFF Lab STAT Malignant neoplasm of right kidney, except renal pelvis (HCC) Expected: 08/05/2021, Expires: 08/06/2021 [facility] Work Phone: Comment on above: Expected: 08/05/2021 , Expires: 08/06/2021 Start: 08-05-2021 End: 08-06-2021 Comprehensive metabolic 2000 panel - Serum or Plasma COMP METABOLIC PANEL Lab STAT Malignant neoplasm of right kidney, except renal pelvis (HCC) Expected: 08/05/2021, Expires: 08/06/2021 [facility] Work Phone: Comment on above: Expected: 08/05/2021 , Expires: 08/06/2021 Start: 08-05-2021 End: 08-06-2021 Lactate dehydrogenase [Enzymatic activity/volume] in Serum or Plasma LD LACTATE DEHYDRO Lab STAT Malignant neoplasm of right kidney, except renal pelvis (HCC) Expected: 08/05/2021, Expires: 08/06/2021 [facility] Work Phone: Comment on above: Expected: 08/05/2021 , Expires: 08/06/2021 Start: 08-05-2021 End: 08-06-2021 Magnesium [Mass/volume] in Serum or Plasma MAGNESIUM BLD Lab STAT Malignant neoplasm of right kidney, except renal pelvis (HCC) Expected: 08/05/2021, Expires: 08/06/2021 [facility] Work Phone: Comment on above: Expected: 08/05/2021 , Expires: 08/06/2021 Start: 08-05-2021 End: 08-06-2021 Phosphate [Mass/volume] in Serum or Plasma PHOSPHORUS INORGANIC Lab STAT Malignant neoplasm of right kidney, except renal pelvis (HCC) Expected: 08/05/2021, Expires: 08/06/2021 [facility] Work Phone: Comment on above: Expected: 08/05/2021 , Expires: 08/06/2021 Start: 08-05-2021 End: 08-06-2021 PT panel - Platelet poor plasma by Coagulation assay PROTHROMBIN TIME/PT Lab STAT Malignant neoplasm of right kidney, except renal pelvis (HCC) Expected: 08/05/2021, Expires: 08/06/2021 [facility] Work Phone: Comment on above: Expected: 08/05/2021 , Expires: 08/06/2021 Start: 08-05-2021 End: 08-06-2021 T3 FREE BLD T3 FREE BLD Lab STAT Malignant neoplasm of right kidney, except renal pelvis (HCC) Expected: 08/05/2021, Expires: 08/06/2021 [facility] Work Phone: Comment on above: Expected: 08/05/2021 , Expires: 08/06/2021 Start: 08-05-2021 End: 08-06-2021 T4 FREE/FREE THYROX T4 FREE/FREE THYROX Lab STAT Malignant neoplasm of right kidney, except renal pelvis (HCC) Expected: 08/05/2021, Expires: 08/06/2021 [facility] Work Phone: Comment on above: Expected: 08/05/2021 , Expires: 08/06/2021 Start: 08-05-2021 End: 08-06-2021 Thyrotropin [Units/volume] in Serum or Plasma TSH BLD Lab STAT Malignant neoplasm of right kidney, except renal pelvis (HCC) Expected: 08/05/2021, Expires: 08/06/2021 [facility] Work Phone: Comment on above: Expected: 08/05/2021 , Expires: 08/06/2021 Start: 08-05-2021 End: 08-06-2021 Urate [Mass/volume] in Serum or Plasma URIC ACID BLOOD Lab STAT Malignant neoplasm of right kidney, except renal pelvis (HCC) Expected: 08/05/2021, Expires: 08/06/2021 [facility] Work Phone: Comment on above: Expected: 08/05/2021 , Expires: 08/06/2021 Start: 07-31-2021 End: 09-30-2021 CBC W Auto Differential panel - Blood CBC + DIFF Lab Routine Renal cell carcinoma, unspecified laterality (HCC) Expected: 07/31/2021, Expires: 09/30/2021 [facility] Work Phone: Comment on above: Expected: 07/31/2021 , Expires: 09/30/2021 Start: 07-31-2021 End: 09-30-2021 Comprehensive metabolic 2000 panel - Serum or Plasma COMP METABOLIC PANEL Lab Routine Renal cell carcinoma, unspecified laterality (HCC) Expected: 07/31/2021, Expires: 09/30/2021 [facility] Work Phone: Comment on above: Expected: 07/31/2021 , Expires: 09/30/2021 Start: 07-24-2021 End: 07-25-2021 aPTT in Platelet poor plasma by Coagulation assay ACTIVATED PTT Lab STAT Malignant neoplasm of right kidney, except renal pelvis (HCC) Expected: 07/24/2021, Expires: 07/25/2021 [facility] Work Phone: Comment on above: Expected: 07/24/2021 , Expires: 07/25/2021 Start: 07-24-2021 End: 07-25-2021 CBC W Auto Differential panel - Blood CBC + DIFF Lab STAT Malignant neoplasm of right kidney, except renal pelvis (HCC) Expected: 07/24/2021, Expires: 07/25/2021 [facility] Work Phone: Comment on above: Expected: 07/24/2021 , Expires: 07/25/2021 Start: 07-24-2021 End: 07-25-2021 CLINICAL TRIAL DRAW CLINICAL TRIAL DRAW Lab STAT Malignant neoplasm of right kidney, except renal pelvis (HCC) Expected: 07/24/2021, Expires: 07/25/2021 [facility] Work Phone: Comment on above: Expected: 07/24/2021 , Expires: 07/25/2021 Start: 07-24-2021 End: 07-25-2021 Comprehensive metabolic 2000 panel - Serum or Plasma COMP METABOLIC PANEL Lab STAT Malignant neoplasm of right kidney, except renal pelvis (HCC) Expected: 07/24/2021, Expires: 07/25/2021 [facility] Work Phone: Comment on above: Expected: 07/24/2021 , Expires: 07/25/2021 Start: 07-24-2021 End: 07-25-2021 Lactate dehydrogenase [Enzymatic activity/volume] in Serum or Plasma LD LACTATE DEHYDRO Lab STAT Malignant neoplasm of right kidney, except renal pelvis (HCC) Expected: 07/24/2021, Expires: 07/25/2021 [facility] Work Phone: Comment on above: Expected: 07/24/2021 , Expires: 07/25/2021 Start: 07-24-2021 End: 07-25-2021 Magnesium [Mass/volume] in Serum or Plasma MAGNESIUM BLD Lab STAT Malignant neoplasm of right kidney, except renal pelvis (HCC) Expected: 07/24/2021, Expires: 07/25/2021 [facility] Work Phone: Comment on above: Expected: 07/24/2021 , Expires: 07/25/2021 Start: 07-24-2021 End: 07-25-2021 Phosphate [Mass/volume] in Serum or Plasma PHOSPHORUS INORGANIC Lab STAT Malignant neoplasm of right kidney, except renal pelvis (HCC) Expected: 07/24/2021, Expires: 07/25/2021 [facility] Work Phone: Comment on above: Expected: 07/24/2021 , Expires: 07/25/2021 Start: 07-24-2021 End: 07-25-2021 PT panel - Platelet poor plasma by Coagulation assay PROTHROMBIN TIME/PT Lab STAT Malignant neoplasm of right kidney, except renal pelvis (HCC) Expected: 07/24/2021, Expires: 07/25/2021 [facility] Work Phone: Comment on above: Expected: 07/24/2021 , Expires: 07/25/2021 Start: 07-24-2021 End: 07-25-2021 Urate [Mass/volume] in Serum or Plasma URIC ACID BLOOD Lab STAT Malignant neoplasm of right kidney, except renal pelvis (HCC) Expected: 07/24/2021, Expires: 07/25/2021 [facility] Work Phone: Comment on above: Expected: 07/24/2021 , Expires: 07/25/2021 Start: 07-15-2021 End: 07-16-2021 aPTT in Platelet poor plasma by Coagulation assay ACTIVATED PTT Lab STAT Malignant neoplasm of right kidney, except renal pelvis (HCC) Expected: 07/15/2021, Expires: 07/16/2021 [facility] Work Phone: Comment on above: Expected: 07/15/2021 , Expires: 07/16/2021 Start: 07-15-2021 End: 07-16-2021 CBC W Auto Differential panel - Blood CBC + DIFF Lab STAT Malignant neoplasm of right kidney, except renal pelvis (HCC) Expected: 07/15/2021, Expires: 07/16/2021 [facility] Work Phone: Comment on above: Expected: 07/15/2021 , Expires: 07/16/2021 Start: 07-15-2021 End: 07-16-2021 Comprehensive metabolic 2000 panel - Serum or Plasma COMP METABOLIC PANEL Lab STAT Malignant neoplasm of right kidney, except renal pelvis (HCC) Expected: 07/15/2021, Expires: 07/16/2021 [facility] Work Phone: Comment on above: Expected: 07/15/2021 , Expires: 07/16/2021 Start: 07-15-2021 End: 07-16-2021 Lactate dehydrogenase [Enzymatic activity/volume] in Serum or Plasma LD LACTATE DEHYDRO Lab STAT Malignant neoplasm of right kidney, except renal pelvis (HCC) Expected: 07/15/2021, Expires: 07/16/2021 [facility] Work Phone: Comment on above: Expected: 07/15/2021 , Expires: 07/16/2021 Start: 07-15-2021 End: 07-16-2021 Magnesium [Mass/volume] in Serum or Plasma MAGNESIUM BLD Lab STAT Malignant neoplasm of right kidney, except renal pelvis (HCC) Expected: 07/15/2021, Expires: 07/16/2021 [facility] Work Phone: Comment on above: Expected: 07/15/2021 , Expires: 07/16/2021 Start: 07-15-2021 End: 07-16-2021 Phosphate [Mass/volume] in Serum or Plasma PHOSPHORUS INORGANIC Lab STAT Malignant neoplasm of right kidney, except renal pelvis (HCC) Expected: 07/15/2021, Expires: 07/16/2021 [facility] Work Phone: Comment on above: Expected: 07/15/2021 , Expires: 07/16/2021 Start: 07-15-2021 End: 07-16-2021 PT panel - Platelet poor plasma by Coagulation assay PROTHROMBIN TIME/PT Lab STAT Malignant neoplasm of right kidney, except renal pelvis (HCC) Expected: 07/15/2021, Expires: 07/16/2021 [facility] Work Phone: Comment on above: Expected: 07/15/2021 , Expires: 07/16/2021 Start: 07-15-2021 End: 07-16-2021 T3 FREE BLD T3 FREE BLD Lab STAT Malignant neoplasm of right kidney, except renal pelvis (HCC) Expected: 07/15/2021, Expires: 07/16/2021 [facility] Work Phone: Comment on above: Expected: 07/15/2021 , Expires: 07/16/2021 Start: 07-15-2021 End: 07-16-2021 T4 FREE/FREE THYROX T4 FREE/FREE THYROX Lab STAT Malignant neoplasm of right kidney, except renal pelvis (HCC) Expected: 07/15/2021, Expires: 07/16/2021 [facility] Work Phone: Comment on above: Expected: 07/15/2021 , Expires: 07/16/2021 Start: 07-15-2021 End: 07-16-2021 Thyrotropin [Units/volume] in Serum or Plasma TSH BLD Lab STAT Malignant neoplasm of right kidney, except renal pelvis (HCC) Expected: 07/15/2021, Expires: 07/16/2021 [facility] Work Phone: Comment on above: Expected: 07/15/2021 , Expires: 07/16/2021 Start: 07-15-2021 End: 07-16-2021 Urate [Mass/volume] in Serum or Plasma URIC ACID BLOOD Lab STAT Malignant neoplasm of right kidney, except renal pelvis (HCC) Expected: 07/15/2021, Expires: 07/16/2021 [facility] Work Phone: Comment on above: Expected: 07/15/2021 , Expires: 07/16/2021 Start: 06-24-2021 End: 08-24-2021 PT panel - Platelet poor plasma by Coagulation assay PROTHROMBIN TIME/PT Lab STAT Mass of right chest wall Expected: 06/24/2021, Expires: 08/24/2021 [facility] Work Phone: Comment on above: Expected: 06/24/2021 , Expires: 08/24/2021 Start: 06-23-2021 End: 07-23-2022 Bone &/joint imaging whole body NM BONE WHOLE BODY Radiology Routine Malignant neoplasm of kidney, unspecified laterality (HCC) Malignant neoplasm of kidney excluding renal pelvis, unspecified laterality (HCC) Expected: 06/23/2021 (Approximate), Expires: 07/23/2022 [facility] Work Phone: Comment on above: Expected: 06/23/2021 (Approximate), Expires: 07/23/2022 Start: 06-23-2021 End: 07-23-2022 Ct abdomen & pelvis w/contrast material CT ABD/PEL W IVCON Radiology Routine Malignant neoplasm of kidney, unspecified laterality (HCC) Malignant neoplasm of kidney excluding renal pelvis, unspecified laterality (HCC) Expected: 06/23/2021 (Approximate), Expires: 07/23/2022 [facility] Work Phone: Comment on above: Expected: 06/23/2021 (Approximate), Expires: 07/23/2022 Start: 06-23-2021 End: 07-23-2022 Ct abdomen & pelvis w/o contrast material CT ABD/PEL WO IVCON Radiology Routine Malignant neoplasm of kidney, unspecified laterality (HCC) Malignant neoplasm of kidney excluding renal pelvis, unspecified laterality (HCC) Expected: 06/23/2021, Expires: 07/23/2022 [facility] Work Phone: Comment on above: Expected: 06/23/2021 , Expires: 07/23/2022 Start: 05-21-2021 COVID-19 VACCINE (4 - Booster for Pfizer series) COVID-19 VACCINE (4 - Booster for Pfizer series) [facility] Start: 04-23-2021 COVID-19 VACCINE (4 - Booster for Pfizer series) COVID-19 VACCINE (4 - Booster for Pfizer series) [facility] Start: 04-15-2021 COVID-19 VACCINE (4 - Booster for Pfizer series) COVID-19 VACCINE (4 - Booster for Pfizer series) [facility] Start: 03-18-2021 COVID-19 VACCINE (4 - Booster for Pfizer series) COVID-19 VACCINE (4 - Booster for Pfizer series) [facility] Start: 03-08-2021 DEPRESSION ASSESSMENT DEPRESSION ASS ESSMENT [facility] Start: 11-19-2020 Colonoscopy COLONOSCOPY [facility] Start: 11-19-2020 COLORECTAL CANCER SCREENING COLORECTAL CANCER SCREENING [facility] Start: 11-19-2020 Screening for malign ant neoplasm of colon [facility] Start: 11-05-2020 Hepatitis B surface antibody level LDL CHOLESTEROL [facility] Start: 07-28-2019 FECAL OCCULT BLOOD FECAL OCCULT BLOO D [facility] Start: 07-28-2019 Screening for malign ant neoplasm of colon Fecal Occult Blood [facility] Start: 03-16-2017 Adult depression scr eening assessment DEPRESSION SCREENING [facility] Start: 01-01-2014 Measurement of occul t blood in single stool specimen FIT [facility] Start: 01-01-2014 Screening for malign ant neoplasm of colon CRC Screening [facility] Start: 01-01-2014 Shingles (RZV) Vacci ne (1 of 2) Shingles (RZV) Vaccine (1 of 2) [facility] Start: 01-01-2014 SHINGRIX VACCINE (1 of 2) ROSS GRIX VACCINE (1 of 2) [facility] Start: 01-01-2009 COLOGUARD (FIT-DNA) COLOGUARD (FIT-D NA) [facility] Start: 01-01-[address] COLONOGRAPHY [facility] Start: 01-01-2009 Screening for malign ant neoplasm of colon [facility] Start: 01-01-2009 SIGMOIDOSCOPY SIGMOIDOSCOPY [facility] Start: 01-01-1999 [facility] Start: 01-01-1983 ONE PNEUMOVAX PRIOR TO AGE 65 ONE PNEUMOVAX PRIOR TO AGE 65 [facility] Start: 01-01-1983 SHINGRIX VACCINE (1 of 2) ROSS GRIX VACCINE (1 of 2) [facility] Start: 01-01-1982 Anxiety Screening Anxiety Screening [facility] Start: 01-01-1982 BP CONTROLLED (<130/80) BP CON TROLLED (<130/80) [facility] Start: 01-01-1982 Depression Screening Depression Scre ening [facility] Start: 01-01-1982 Hepatitis C screening Hepatitis C An tibody [facility] Start: 01-01-1982 Tetanus + diphtheria + acellular pertussis vaccine (product) Tdap Booster [facility] Start: 01-01-1979 HIV screening HIV Test [facility] Start: 01-01-1970 PNEUMOCOCCAL (1 - PCV) PNEUMOCOCCAL (1 - PCV) [facility] Start: 1964 COVID-19 Vaccine (#1) COVID-19 Vacci ne (#1) [facility] Start: 1964 HEPATITIS B (1 of 3 - 3-dose series) HEPATITIS B (1 of 3 - 3-dose series) [facility] Start: 1965 Screening for malign ant neoplasm of colon Colonoscopy [facility] Basic metabolic 2008 panel with ionized calcium - Serum or Plasma [facility] Basic metabolic 2008 panel with ionized calcium - Serum or Plasma [facility] Biopsy bone trocar/n eedle superficial IMAGING GUIDED BIOPSY RIB/BONY PELVIS/STERNUM/SPINOUS PROCESS Radiology Routine Malignant neoplasm of kidney, unspecified laterality (HCC) Malignant neoplasm of kidney excluding renal pelvis, unspecified laterality (HCC) Ordered: 06/23/2021 [facility] Work Phone: Comment on above: Ordered: 06/23/2021 Bone &/joint imaging whole body NM BONE WHOLE BODY Radiology Routine Renal cell carcinoma of right kidney (HCC) Ordered: 03/11/2022 [facility] Work Phone: Comment on above: Ordered: 03/11/2022 CBC W Auto Different ial panel - Blood [facility] CBC W Auto Different ial panel - Blood [facility] CBC W Auto Different ial panel - Blood [facility] CLINICAL TRIAL DRAW CLINICAL TRI AL DRAW Lab STAT Malignant neoplasm of right kidney, except renal pelvis (HCC) 08/08/2021 9:04 AM EDT [facility] Work Phone: End: 08-27-2022 Ct abdomen & pelvis w/contrast material CT ABD/PEL W IVCON Radiology Routine Malignant neoplasm of right kidney, except renal pelvis (HCC) Malignant neoplasm of kidney excluding renal pelvis, unspecified laterality (HCC) 1 Occurrences starting 07/28/2021 until 08/27/2022 [facility] Work Phone: Comment on above: 1 Occurrences starti ng 07/28/2021 until 08/27/2022 End: 09-19-2022 Ct abdomen & pelvis w/contrast material CT ABD/PEL W IVCON Radiology Routine Malignant neoplasm of right kidney, except renal pelvis (HCC) Malignant neoplasm of kidney excluding renal pelvis, unspecified laterality (HCC) 1 Occurrences starting 08/21/2021 until 09/19/2022 [facility] Work Phone: Comment on above: 1 Occurrences starti ng 08/21/2021 until 09/19/2022 Ct abdomen & pelvis w/contrast material CT ABD/PEL W IVCON Radiology Routine Renal cell carcinoma of right kidney (HCC) Ordered: 03/11/2022 [facility] Work Phone: Comment on above: Ordered: 03/11/2022 CT Abdomen and Pelvi s WO contrast [facility] CT CHEST W IVCON CT CHEST W IVCO N Radiology Routine Renal cell carcinoma of right kidney (HCC) Ordered: 03/11/2022 [facility] Work Phone: Comment on above: Ordered: 03/11/2022 CT Chest WO contrast [facility] End: 09-19-2022 Ct thorax w/contrast material CT CHEST W IVCON Radiology Routine Malignant neoplasm of right kidney, except renal pelvis (HCC) Malignant neoplasm of kidney excluding renal pelvis, unspecified laterality (HCC) 1 Occurrences starting 08/21/2021 until 09/19/2022 [facility] Work Phone: Comment on above: 1 Occurrences starti ng 08/21/2021 until 09/19/2022 End: 07-11-2022 ECG COMPLETE ECG COMPLETE ECG Routine Malignant neoplasm of right kidney, except renal pelvis (HCC) 1 Occurrences starting 07/11/2021 until 07/11/2022 [facility] Work Phone: Comment on above: 1 Occurrences starti ng 07/11/2021 until 07/11/2022 ECG COMPLETE [facility] End: 12-30-2022 ECG COMPLETE ECG COMPLETE ECG Routine Renal cell carcinoma of right kidney (HCC) 1 Occurrences starting 12/30/2021 until 12/30/2022 [facility] Work Phone: Comment on above: 1 Occurrences starti ng 12/30/2021 until 12/30/2022 End: 02-16-2023 ECHO LIMITED ECHO LIMITED Cardiology Routine Acute decompensated heart failure (HCC) Paroxysmal atrial fibrillation (HCC) 1 Occurrences starting 02/16/2022 until 02/16/2023 [facility] Work Phone: Comment on above: 1 Occurrences starti ng 02/16/2022 until 02/16/2023 End: 07-11-2022 Echocardiography ECHO Cardiology Routine Malignant neoplasm of right kidney, except renal pelvis (HCC) 1 Occurrences starting 07/11/2021 until 07/11/2022 [facility] Work Phone: Comment on above: 1 Occurrences starti ng 07/11/2021 until 07/11/2022 Elastase.pancreatic [Presence] in Stool [facility] INR in Blood by Coagulation assay [facility] INR in Blood by Coagulation assay [facility] INR in Blood by Coagulation assay [facility] Lactate dehydrogenas e measurement [facility] Magnesium [Mass/volu me] in Serum or Plasma [facility] Magnesium measurement [facility] Magnesium measurement [facility] End: 09-07-2022 Mri abdomen w/o & w/contrast material MRI KIDNEY WO/W IVCON Radiology Routine Other specified disorders of kidney and ureter 1 Occurrences starting 08/08/2021 until 09/07/2022 [facility] Work Phone: Comment on above: 1 Occurrences starti ng 08/08/2021 until 09/07/2022 End: 08-13-2022 Mri brain brain stem w/o w/contrast material MRI BRAIN WO/W IVCON Radiology Routine Malignant neoplasm of kidney excluding renal pelvis, unspecified laterality (HCC) Renal cell carcinoma, unspecified laterality (HCC) 1 Occurrences starting 07/14/2021 until 08/13/2022 [facility] Work Phone: Comment on above: 1 Occurrences starti ng 07/14/2021 until 08/13/2022 NM Heart Views W str ess and W radionuclide IV [facility] End: 07-22-2022 OUTSIDE LISA OUTSIDE LISA Cardiology Routine Nonrheumatic mitral valve regurgitation 1 Occurrences starting 07/22/2021 until 07/22/2022 [facility] Work Phone: Comment on above: 1 Occurrences starti ng 07/22/2021 until 07/22/2022 Ova and parasites identified in Unspecified specimen by Light microscopy [facility] Ova OR parasites identification [facility] Patient Education [facility] Work Phone: Patient referral [facility] Work Phone: End: 08-19-2022 Polysomnogram POLYSOMNOGRAM (PSG) Procedures Routine Disturbance in sleep behavior 1 Occurrences starting 08/19/2021 until 08/19/2022 [facility] Work Phone: Comment on above: 1 Occurrences starti ng 08/19/2021 until 08/19/2022 Protein measurement [facility] End: 01-29-2023 Radiologic exam chest 2 views XR CHEST 2V FRONTAL/LAT Radiology Routine Renal cell carcinoma of right kidney (HCC) 1 Occurrences starting 12/30/2021 until 01/29/2023 [facility] Work Phone: Comment on above: 1 Occurrences starti ng 12/30/2021 until 01/29/2023 Respiratory Panel (PCR) Respirat ory Panel (PCR) [facility] Respiratory pathogen s DNA and RNA 12b panel - Unspecified specimen by SANDOVAL with probe detection [facility] T3 FREE BLD T3 FREE BLD Lab STAT Malignant neoplasm of right kidney, except renal pelvis (HCC) 07/21/2021 7:53 AM EDT [facility] Work Phone: T4 FREE/FREE THYROX T4 FREE/FREE THYROX Lab STAT Malignant neoplasm of right kidney, except renal pelvis (HCC) 07/21/2021 7:53 AM EDT [facility] Work Phone: Thyroid stimulating hormone measurement [facility] Troponin I measurement [facility] Work Phone: Troponin I measurement [facility] URINALYSIS, REFLEX MICROSCOPIC URINALYSIS, REFLEX MICROSCOPIC Lab Routine Screening for genitourinary condition Ordered: 01/23/2022 [facility] Work Phone: Comment on above: Ordered: 01/23/2022 [facility] Work Phone: [facility] Immunizations Immunization Date Immunization Notes Care Provider Koki brunson 01-21-2021 Pfizer-BioNTech COVID-19 Vacc 30 MCG/0.3ML Intramuscular Suspension Daksha Turner Work Phone: [facility] 06-20-2020 Covid (Pfizer) Dr. Janusz Turner Work Phone: [facility] 06-15-2020 Pfizer-BioNTech COVID-19 Vacc 30 MCG/0.3ML Intramuscular Suspension Daksha Turner Work Phone: [facility] 05-25-2020 Pfizer-BioNTech COVID-19 Vacc 30 MCG/0.3ML Intramuscular Suspension Daksha Turner Work Phone: [facility] 07-25-2018 tetanus toxoid, reduced diphtheria toxoid, and acellular pertussis vaccine, adsorbed Dawit Carlitos MD Work Phone: [facility] 12-06-2013 influenza, seasonal, injectable Dawit Urbina MD Work Phone: [facility] 12-06-2013 influenza virus vaccine, unspecified formulation Noreen Morejon Work Phone: [facility] Date of Pneumonia Vaccine: Family Unavailable [facility] Work Phone: Payers Date Payer Category Payer Medicare [id number] 2023 Self-pay [id number] 2023 Self-pay [id number] 2023 Medicare [id number] 2020 Unknown [employer] [id number] 2020-Present [phone] [address] [place] [address] [id number] 1.2.840.180661.1.13.159.2. 7.3.584288.315 2018 Unknown [id number] 1.2.840.445690.1.13.159.2. 7.3.289535.315 2016 Unknown [id number] 2015 Unknown [employer] [id number] 2015-Present [phone] [address] [place] [address] [id number] 1.2.840.383854.1.13.159.2. 7.3.391947.315 2008 Unknown [employer] [id number] 2008-Present [phone] [address] [place] [address] [id number] 1.2.840.661292.1.13.159.2. 7.3.309989.315 2008 Worker's Compensation [employer] - [employer]ED [employer] [id number] 2008-Present [phone] [place] [address] Worker's Comp 1.2.840.567489.1.13.56.2.7 .3.957970.315 2006 Unknown [id number] 1965 Unknown [id number] 2.16.840.1.052230.3.579.2. 1069 1964 Unknown [id number] 2.16840.1.493251.3.579.2. 1069 1964 Unknown [id number] 2.16.840.1.497049.3.579.2. 356 1964 Unknown [id number] 2.16.840.1.784265.3.579.2. 356 Medicare [id number] Unknown [id number] 2.16.840.1.238262.3.579.2. 277 Unknown [id number] 2.16.840.1.480667.3.579.2. 462 Unknown [id number] 2.16.840.1.243546.3.579.2. 462 Unknown [id number] 2.16.840.1.911986.3.579.2. 462 Unknown [id number] 2.16.840.1.502062.3.579.2. 462 Unknown [id number] 2.16.840.1.022558.3.579.2. 462 Unknown [id number] 2.16.840.1.716385.3.579.2. 462 Unknown [id number] 2.16.840.1.788211.3.579.2. 462 Unknown [id number] 2.16.840.1.226826.3.579.2. 462 Unknown [id number] 2.16.840.1.816319.3.579.2. 462 Unknown [id number] 2.16.840.1.051779.3.579.2. 462 Unknown [id number] 2.16.840.1.786117.3.579.2. 462 Unknown [id number] 2.16.840.1.025644.3.579.2. 462 Unknown [id number] 2.16840.1.633019.3.579.2. 462 Unknown [id number] 2.840.1.552378.3.579.2. 462 Unknown [id number] 2.840.1.784634.3.579.2. 462 Unknown [id number] 2.840.1.564689.3.579.2. 462 Unknown [id number] 2.840.1.060692.3.579.2. 462 Unknown [id number] 2.840.1.571785.3.579.2. 462 Unknown [id number] 2.16840.1.410385.3.579.2. 462 Unknown [id number] 2.840.1.962447.3.579.2. 462 Unknown [id number] 2.16840.1.068086.3.579.2. 462 Unknown [id number] 2.16.840.1.172083.3.579.2. 462 Unknown [id number] 2.16.840.1.530986.3.579.2. 462 Unknown [id number] 2.16.840.1.806525.3.579.2. 462 Unknown [id number] 2.16840.1.597884.3.579.2. 462 Unknown [id number] 2.16.840.1.192942.3.579.2. 462 Unknown [id number] 2.16.840.1.582674.3.579.2. 462 Unknown [id number] 2.16.840.1.202139.3.579.2. 462 Unknown [id number] 2.16.840.1.369000.3.579.2. 462 Unknown [id number] 2.16.840.1.779511.3.579.2. 462 Unknown [id number] 2.16.840.1.530276.3.579.2. 462 Social History Date Type Detail Facility Start: 06-19-2021 End: 10-09-2021 Tobacco smoking status NHIS Never smoker [facility] Start: 1965 Sex Assigned At Male [facility] Start: 08-19-2021 End: 10-19-2024 Tobacco smoking status NHIS Smokes tobacco daily [facility] Work Phone: History of tobacco use Cigarette Smoker [facility] Work Phone: Start: 06-20-2021 End: 12-09-2021 Alcohol intake Current drinker of alcohol (finding) [facility] Start: 1965 Sex Assigned At Not on file [facility] Start: 06-10-2021 End: 01-19-2022 Exposure to SARS-CoV-2 (event) Not sure [facility] Start: 07-01-2021 End: 11-28-2021 Exposure to SARS-CoV-2 (event) Unable to assess [facility] Start: 06-04-2019 End: 12-15-2022 Tobacco smoking status NHIS Unknown if ever smoked [facility] Work Phone: Start: 06-04-2019 Spouse/ Signif icant Other [facility] Start: 06-04-2019 Secondhand [facility] Start: 08-19-2021 End: 12-09-2021 Tobacco Comment former cigarettes, now cigars 3 per day [facility] Start: 08-19-2021 End: 10-09-2021 Cigarettes smoked current (pack per day) - Reported 0.3 [facility] Start: 08-19-2021 End: 02-16-2022 Tobacco use and exposure Smokeless tobacco non-user [facility] Start: 10-27-2021 History SDOH Alcohol Comment 3 times a week per pt 10/27/2021 [facility] History of tobacco use Cigar Smoker [facility] Start: 02-16-2022 Tobacco smoking status NHIS Ex-smoker [facility] History of tobacco use Current smoker [facility] Start: 02-16-2022 End: 02-17-2022 Alcohol intake Ex-drinker (finding) [facility] Start: 02-16-2022 Tobacco Comment About a month ago smoked cigars About 3-4 years from last time smoked cigarettes [facility] Adult Depression Screening Assessment 1 [facility] Start: 06-06-2024 End: 06-22-2024 Sex Male (finding) [facility] NEGATED: Highlighted rowStart: NINF History of tobacco use Passive smoker [facility] Goals Date Patient Goal Desired Activity /State Functional Status Date Assessment Result Facility 10-21-2024 Functional status Ambulates [facility] Work Phone: 10-21-2024 Functional status Ambulates [facility] Work Phone: 12-17-2022 Functional status Ambulates [facility] Work Phone: 06-29-2022 Functional status Ambulates [facility] Work Phone: 05-20-2022 Functional status Activity Ability [facility] Work Phone: 05-20-2022 Functional status Patient Activity Bedres t [facility] Work Phone: 04-16-2022 Functional status Activity Ability [facility] Work Phone: 04-16-2022 Functional status Ambulates;Up ad haley [facility] Work Phone: 12-09-2021 Functional status Ambulates [facility] Work Phone: 12-08-2021 Functional status None [facility] Work Phone: Functional observable [facility] Mental Status Date Assessment Result Facility 10-21-2024 Cognitive function Voice/Name [facility] Work Phone: 10-21-2024 Cognitive function Voice/Name [facility] Work Phone: 10-18-2024 Cognitive function Level Of Cons ciousness Awake;Alert;Appropriate;[facility] Work Phone: 12-17-2022 Cognitive function Voice/Name [facility] Work Phone: 06-29-2022 Cognitive function Voice/Name [facility] Work Phone: 06-27-2022 Cognitive function Voice/Name [facility] Work Phone: 05-20-2022 Cognitive function Voice/Name [facility] Work Phone: 04-16-2022 Cognitive function Voice/Name [facility] Work Phone: 02-06-2022 Cognitive functi ons [id number] [facility] 01-20-2022 Cognitive function Awake;Alert;A ppropriate;[facility] Work Phone: 12-09-2021 Cognitive function Voice/Name [facility] Work Phone: 12-07-2021 Cognitive function Voice/Name [facility] Work Phone: Clinical Notes 06-30-2004 to 10-21-2024 Note Date & Type Note Facility 10-21-2024 Note [facility] Medical Records Department [address] [place] [address] Discharge Summary 10/21/24 1441 MR#: [id number] Acct: [id number] Name: YEFRI YANEZ Rep #: [id number] : 1965 59 From: Marquise Padilla MD PCP: Dr. Daksha Turner MD Status:DIS IN Location: [place] 1057323-1 Providers Date of Admission: 10/19/24 Primary Care [...] global hypokinesis of the left ventricle and idzg-ns-diosufti (1-2+) eccentric mitral valve insufficiency, mild (1+) [...] (for months) and OA who presents to [facility] ER complaining of abdominal pain and diarrhea. [...] that revealed Right (more content not included)... [facility] 10-21-2024 Discharge summary Note Date/Time October 21, 2024 7:38am [facility] Medical Records Department [address] [place] [address] Instructions for Home/Discharge Instructions 10/21/24 0734 MR#: [id number] Acct: [id number] Name: YEFRI YANEZ Rep #:[id number] : 1965 59 From: Marquise ogden MD [...] MD; Dr. Rahul Chavez DO ~ Signed [facility] Work Phone: 1(142) 422-859208-16-2025 Discharge summary [facility] Medical Records Department [address] [place] [address] Instructions for Home/Discharge Instructions 10/21/24 0734 MR#: [id number] Acct: [id number] Name: YEFRI YANZE Rep #:[id number] : 1965 59 From: Marquise ogden MD [...] MD; Dr. Rahul Chavez DO ~ Signed [facility]08-15-2025 Progress note Author Marquise Padilla [facility] Note Date/Time October 20, 2024 4: 08pm [facility] Medical Records Department [address] [place] [address] Progress Note - Hospitalist 10/20/24 1536 MR#: [id number] Acct: [id number] Name: YEFRI YANEZ Rep #:[id number] : 1965 59 From: Marquise ogden MD PCP: Dr. Daksha Turner MD Status :ADM IN Location: [place] [address]- Subjective Subjective Being a little bit better [...] % (Auto) 63.4, Lymph % (Auto) 21.9, Winkler % (Auto) 10.7 H, Eos % (Auto) [...] DVT: Eliquis Charges/Coding Visit Charges Inpatient E&M: 47821 Subs Hosp L2 10/20/24 1608 <Electronically signed by Marquise Padilla MD> Cosigner Signature (if applicable): CC: ~ Signed [facility] Work Phone: 1(230) 280-684608-15-2025 Progress note [facility] Medical Records Department [address] [place] [address] Progress Note - Hospitalist 10/20/24 1536 MR#: [id number] Acct: [id number] Name: YEFRI YANEZ Rep #:[id number] : 1965 59 From: Marquise ogden MD PCP: Dr. Daksha Turner MD Status :ADM IN Location: [place] [address] Subjective Subjective Being a little bit better [...] % (Auto) 63.4, Lymph % (Auto) 21.9, Winkler % (Auto) 10.7 H, Eos % (Auto) [...] DVT: Eliquis Charges/Coding Visit Charges Inpatient E&M: 01897 Subs Hosp L2 10/20/24 1608 Cosigner Signature (if applicable): CC: ~ Signed [facility]08-14-2025 Progress note Author Marquise Padilla [facility] Note Date/Time October 19, 2024 4: 38pm [facility] Medical Records Department [address] [place] [address] Progress Note 10/19/24 1637 MR#: [id number] Acct: [id number] Name: YEFRI YANEZ Rep #:[id number] : 1965 59 From: Marquise ogden MD PCP: Dr. Daksha Turner MD Status :ADM IN Location: [place] [address] Progress Note Blood pressures are little bit [...] Cosigner Signature (if applicable): CC: ~ Signed [facility] Work Phone: 1(520) 149-108208-14-2025 Progress note [facility] Medical Records Department [address] [place] [address] Progress Note 10/19/24 1637 MR#: [id number] Acct: [id number] Name: YEFRI YANEZ Rep #:[id number] : 1965 59 From: Marquise ogden MD PCP: Dr. Daksha Turner MD Status :ADM IN Location: [place] [address] Progress Note Blood pressures are little bit on the softer side so we will hold his Coreg today. Awaiting evaluation by gastroenterology secondary to his heme positive stools so far stool studies are negative though he does have stool lactoferrin coming back positive. His renal function does appear to be close to baseline wewill continue with his IV fluids for 2 bags. 10/19/24 4298 Marquise Padilla MD Cosigner Signature (if applicable): CC: ~ Signed [facility]08-14-2025 Discharge summary Author Veronica Jackson [facility] Note Date/Time October 19, 2024 10 :35am [facility] Medical Records Department [address] [place] [address] Emergency Department Summary 10/18/24 MR#: [id number] Acct: [id number] Name: YEFRI YANEZ Rep #:[id number] : 1965 59 From: Veronica Jackson MD PCP: Dr. Daksha Turner MD Status :ADM IN Location: [address] History of Present Illness Chief Complaint: [...] in his stool. Denies any recent antibiotics. [facility] Medical History Atrial fibrillation Abnormal chest x-ray [...] % (Auto) 66.2 Lymph % (Auto) 22.9 Winkler % (Auto) 7.8 Eos % (Auto) 2.5 [...] with multifocal bone metastatic disease. Reading Location: [place] [address] Chest X-Ray 10/18/24 22:50 IMPRESSION: Right lateral chest wall mass. Reading Location: [id number] Discharge Plan Triage Chief Complaint: General Illness [...] MD [Primary Care Provider] - Print Language: Pashto What to do if you have Problems For any increased pain, shortness of breath, bleeding, nausea or vomiting, chestpain, or any unexpected problems, contact your Primary Care Provider. Call [facility] ([phone]) or report to the closest Emergency Room. Call 911 if necessary. 10/19/24 1035 <Electronically signed by Veronica Jackson MD> Cosigner Signature (if applicable): CC: Dr. Daksha Turner MD ~ Signed [facility] Work Phone: 1(573) 637-689308-14-2025 Discharge summary [facility] Medical Records Department [address] [place] [address] Emergency Department Summary 10/18/24 MR#: [id number] Acct: [id number] Name: YEFRI YANEZ Rep #:[id number] : 1965 59 From: Veronica Jackson MD PCP: Dr. Daksha Turner MD Status :ADM IN Location: [place] [address] HPI History of Present Illness Chief Complaint: [...] no longer short of breath on his dbbphtda0N nasal cannula. Denies any dysuria or hematuria. Denies any blood in his stool. Denies any recent antibiotics. [facility] Medical History Atrial fibrillation Abnormal chest x-ray [...] % (Auto) 66.2 Lymph % (Auto) 22.9 Winkler % (Auto) 7.8 Eos % (Auto) 2.5 [...] with multifocal bone metastatic disease. [facility] Chest X-Ray 10/18/24 22:50 IMPRESSION: Right lateral chest wall mass. Reading Location: [id number] Discharge Plan Triage Chief Complaint: General Illness [...] MD [Primary Care Provider] - Print Language: Pashto What to do if you have Problems For any increased pain, shortness of breath, bleeding, nausea or vomiting, chestpain, or any unexpected problems, contact your Primary Care Provider. Call [facility] ([phone]) or report tothe closest Emergency Room. Call 911 if necessary. 10/19/24 1035 Cosigner Signature (if applicable): CC: Dr. Daksha Turner MD ~ Signed [facility]08-14-2025 History and physical note Author Rahul Verduzco [facility] Note Date/Time October 19, 2024 6: 21am [facility] Medical Records Department [address] [place] [address] H&P Exam - Hospitalist 10/19/24 0418 MR#: [id number] Acct: [id number] Name: YEFRI YANEZ Rep #:[id number] : 1965 59 From: Rahul See DO PCP: Dr. Daksha Turner MD Status :ADM IN Location: [place] 1057323- 1 HPI - General General Date of [...] global hypokinesis of the left ventricle and ujfb-pi-sbhlmyqm (1-2+) eccentric mitral valve insufficiency, mild(1+) tricuspid [...] (for months) and OA who presents to [facility] ER complaining of abdominal pain and diarrhea. [...] is expected to extend beyond 2 midnights. [facility] Medical History Atrial fibrillation Abnormal chest x-ray [...] Clarity Clear, Urine pH 5.0, Ur Specific [place] 1.020, Urine Protein 30 H, Urine Glucose [...] % (Auto) 66.2, Lymph % (Auto) 22.9, Winkler % (Auto) 7.8, Eos % (Auto) 2.5, [...] with multifocal bone metastatic disease. [facility] Chest X-Ray 10/18/24 22:50 IMPRESSION: Right lateral chest wall mass. Reading Location: [facility] Assessment & Plan Assessment/Plan (1) Diarrhea: QUALIFIERS: [...] or vomiting. Give acetaminophen as needed for cuch-ff-dlvnkucy (level 1-5/10) pain or fever. Give morphine [...] global hypokinesis of the Left ventricle and jypd-yc-aaoconsl (1-2+) eccentric mitral valve insufficiency, mild (1+) [...] 75 minutes. Charges/Coding Visit Charges Inpatient E&M: 78892 Init Hosp L3 10/19/24 0621 <Electronically signed by Rahul Chavez DO> Cosigner Signature (if applicable): CC: Dr. Daksha Turner MD; Dr. Rahul Chavez DO~ Signed [facility] Work Phone: 1(263) 827-329908-14-2025 History and physical note [facility] Medical Records Department [address] [place] [address] H&P Exam - Hospitalist 10/19/24 0418 MR#: [id number] Acct: [id number] Name: YEFRI YANEZ Rep #:[id number] : 1965 59 From: Rahul See DO PCP: Dr. Daksha Turner MD Status :ADM IN Location: [place] 1057323- 1 HPI - General General Date of [...] hypokinesis of the left ventri michael and idnq-yb-gztmqbpb (1-2+) eccentric mitral valve insufficiency, mild(1+) tricuspid [...] (for months) and OA who presents to [facility] ER complaining of abdominal pain and diarrhea. [...] is expected to extend beyond 2 midnights. [facility] Medical History Atrial fibrillation Abnormal chest x-ray [...] Clarity Clear, Urine pH 5.0, Ur Specific [place] 1.020, Urine Protein 30 H, Urine Glucose [...] % (Auto) 66.2, Lymph % (Auto) 22.9, Winkler % (Auto) 7.8, Eos % (Auto) 2.5, [...] with multifocal bone metastatic disease. [facility] Chest X-Ray 10/18/24 22:50 IMPRESSION: Right lateral chest wall mass. Reading Location: [facility] Assessment & Plan Assessment/Plan (1) Diarrhea: QUALIFIERS: [...] or vomiting. Give acetaminophen as needed for dyif-fr-vzipngen (level 1-5/10) pain or fever. Give morphine [...] global hypokinesis of the Left ventricle and wwvb-qm-neekhmos (1-2+) eccentric mitral valve insufficiency, mild (1+) [...] 75 minutes. Charges/Coding Visit Charges Inpatient E&M: 34359 Init Hosp 10/19/24 0621 Cosigner Signature (if applicable): CC: Dr. Daksha Turner MD; Dr. Rahul Chavez, DO~ Signed [facility]08-13-2025 Radiology Diagnostic study note [facility] Imaging Services [address] [place] [address] Abdomen/Pelvis without Cont MR#: [id number] Acct: [id number] Name: YEFRI YANEZ Rep #: [id number] : 1965 M 59 From: Jaimee Quinn MD PCP: Dr. Daksha Turner MD Status: REG ER Study:Abdomen/Pelvis without Cont Date of Exa m: 10/18/24 Exam# [id number] Ordering Dr: Eunice Jackson MD PROCEDURE: ABDOMEN/PELVIS [...] with multifocal bone metastatic disease. Reading Location: [place] [address] CC: Dr. Daksha Turner MD; Dr. Veronica Jackson MD ~ Horticulture Superintendent: Signed [facility]08-13-2025 Radiology Diagnostic study note [facility] Imaging Services [address] [place], [place] [address] Chest PA and Lateral MR#: [id number] Acct: [id number] Name: YEFRI YANEZ Rep #: [id number] : 1965 M 59 From: Len Ng MD PCP: Dr. Daksha Turner MD Status: REG ER Study:Chest PA and Lateral Date of Exam: 10/18/24 Exam# [id number] Ordering Dr: Eunice Jackson MD PROCEDURE: CHEST PA AND LATERAL 10/18/2024 REASON FOR EXAM: FEELING UNWELL TECHNIQUE: CHEST PA AND LATERAL COMPARISON: 02/10/2024 CT. FINDINGS: Right lateral chest wall masslike lesion may represent a previously expansile right 6th rib lesion.No consolidation. The heart is normal in size. RAD/Chest PA and Lateral IMPRESSION: Right lateral chest wall mass. Reading Location: [id number] CC: Dr. Daksha Turner MD; Dr. Veronica Jackson MD ~ Horticulture Superintendent: Signed [facility]06-09-2025 Evaluation note* Diagnosis Onset Date Resolution Status [...] cell cancer chronic October 19, 2024 4:52am [facility] Work Phone: 1(552) 653-154006-09-2025 Evaluation note* Diagnosis Onset Date Resolution Status [...] of colonic polyps acute October 30 2:26pm [facility] Work Phone: 1(191) 343-718104-15-2025 Evaluation note* Diagnosis Onset Date Resolution Status Admit Date Metastatic renal cell carcin paulette to bone chronic June 20, 2024 1:05pm Renal cell cancer chronic June 062024 1:05pm [facility] Work Phone: 1(460) 912-392304-15-2025 Evaluation note* Diagnosis Onset Date Resolution Status [...] 2024 12:55pm Hypertension inactive August 14 12:55pm [facility] Work Phone: 1(664) 632-700004-15-2025 Evaluation note* Diagnosis Onset Date Resolution Status [...] 2024 12:55pm Hypertension inactive August 14 12:55pm [facility] Work Phone: 1(216) 797-707904-15-2025 Evaluation note* Diagnosis Onset Date Resolution Status [...] Hypertension inactive October 02, 2 025 2:24pm [facility] Work Phone: 1(188) 530-382204-15-2025 Evaluation note* Diagnosis Onset Date Resolution Status [...] failure) chron ic October 02, 2024 2:24pm [facility] Work Phone: 1(617) 394-380704-09-2025 Radiology Diagnostic study note [facility] Imaging Services [address] [place] [address] CT Chest, Abd, Pel w/Contrast MR#: [id number] Acct: [id number] Name: YEFRI YANEZ Rep #: [id number] : 1965 M 59 From: Manuela Holman MD PCP: Dr. Daksha Turner MD Status: REG CLI Study:CT Chest, Abd, Pel w/Contrast Date of E xam: 06/13/24 Exam# [id number] Ordering Dr: Jose Botello MD PROCEDURE: CT [...] cm. *Status post right-sided nephrectomy. Reading Location: [facility] CC: Dr. Daksha Turner MD; Dr. Dangelo Botello MD ~ Horticulture Superintendent: Signed [facility]10-11-2023 Progress note Author Carol Chiu [facility] December 16, 2022 12:38pm Note Date/Time December 16, 2022 1 2:38pm [facility] Medical Records Department [address] [place] [address] Progress Note - Hospitalist 12/16/22 1227 MR#: [id number] Acct: [id number] Name: YEFRI YANEZ Rep #:[id number] : 1965 57 From: Carol Chiu DO PCP: Dr. Jose Ramon Turner MD Status: ADM LISY Location: [address] 1 Reason for Visit Reason for Visit: Shortness of breath Subjective Subjective Mr. Yanez is a 57-year-old -Albanian male who presented to the emergency department at [facility] on 12/15/2022 with worsening shortness of breath. Patient told the admitting physician that he is supposed to be wearing his oxygen all the time at home however he is only wearing it whenneeded. His oxygen was written for by Dr. Yanez and is to be 3 L [id number]. He does have a history of systolic [...] is supposed to be on 3 L fxxiwj-zhp-aoloy of oxygen. He tells me that he [...] (Auto) 87.2 H, Lymph % (Auto) 7.4L, Winkler % (Auto) 4.6, Eos % (Auto) 0.1, [...] 79.3 H, Lymph % (Auto) 12.9 L, Winkler % (Auto) 6.0, Eos % (Auto) 0.9, [...] habitus or healthy appearing Constitutional Narrative: Obese, -Albanian, male, lying in bed, appears comfortable and [...] post nephrectomy 02/06/2022--> Dr. Aravind Lopez at [facility] -Currently on immunotherapy -Patient has undergone [...] in a.m. Charges/Coding Visit Charges Inpatient E&M: 62037 Subs Hosp L2 12/16/22 1238 <Electronically signed by Caorl Chiu DO> Cosigner Signature (if applicable): CC: ~ Signed [facility] Work Phone: 1([phone]) 226-463110-10-2023 History and physical note Author Marquise Padilla [facility] December 15, 2022 7:30pm Note Date/Time December 15, 2022 4 :56pm [facility] Medical Records Department [address] [place] [address] H&P Exam - Hospitalist 12/15/22 1648 MR#: [id number] Acct: [id number] Name: YEFRI YANEZ Rep #:[id number] : 1965 57 From: Marquise ogden MD PCP: Dr. Jose Ramon Turner MD Status: ADM LISY Location: [place] [address] HPI - General General Date of Admission: [...] febrile. [facility] and he is currently on immunotherapy for [...] 87.2 H, Lymph % (Auto) 7.4 L, Winkler % (Auto) 4.6, Eos % (Auto) 0.1, [...] DVT: Coumadin Charges/Coding Visit Charges Inpatient E&M: 74094 Init Hosp L3 12/15/221929 <Electronically signed by Marquise Padilla MD> Cosigner Signature (if applicable): CC: Dr. Jose Ramon Turner MD; Dr. Marquise Padilla MD~ Signed [facility] Work Phone: [phone]) [phone] Discharge summary Author Speedy Bass [facility] December 15, 2022 3:29pm Note Date/Time December 15, 2022 1 :13pm [facility] Medical Records Department [address] [place] [address] Emergency Department Summary 12/15/22 MR#: [id number] Acct: [id number] Name: RENATAYEFRI JUSTICE Rep #:[id number] : 1965 57 From: Speedy Bass MD [...] 87.2 H Lymph % (Auto) 7.4 L Winkler % (Auto) 4.6 Eos % (Auto) 0.1 [...] Provider] - Disposition Disposition: Acute Care Hospital [facility] What to do if you have Problems For any increased pain, shortness of breath, bleeding, nausea or vomiting, chestpain, or any unexpected problems, contact your Primary Care Provider. Call [facility] ([phone]) or report to the closest Emergency Room. Call 911 if necessary. 12/15/22 1529 <Electronically signed by Speedy Bass MD> Cosigner Signature (if applicable): CC: Dr. Jose Ramon Turner MD ~ Signed [facility] Work Phone: [phone]) [phone] Chiu [facility] June 29, 2022 11:24am Note Date/Time June 29, 2022 11: 08am [facility] Medical Records Department [address] [place] [address] Discharge Summary 06/29/22 1105 MR#: [id number] Acct: [id number] Name: YEFRI YANEZ Rep #:[id number] : 1965 57 From: Carol Chiu DO PCP: Dr. Jose Ramon Turner MD Status: ADM IN Location: [address] Date of Admission: 06/28/22 Date of [...] distress and well nourished Constitutional Narrative: Obese, -Albanian, upper middle-aged, male, lying in bed talking [...] (Auto) 91.8 H, Lymph % (Auto) 2.9L, Winkler % (Auto) 4.4, Eos % (Auto) 0.0, [...] Self Care Charges/Coding Visit Charges Inpatient E&M: 53237 Disch Hosp >30min 06/29/22 1124 <Electronically signed by Carol Chiu DO> Cosigner Signature (if applicable): CC: Dr. Jose Ramon Turner MD; Dr. Carol Chiu, DO~ Signed [facility] Work Phone: 1(952) 558-119304-23-[address] Wei [facility] June 28, 2022 3:27pm Note Date/Time June 28, 2022 2:1 6pm [facility] Medical Records Department [address] [place] [address] Progress Note 06/28/22 1412 MR#: [id number] Acct: [id number] Name: YEFRI YANEZ Rep #:[id number] : 1965 57 From: Pau Wei MD PCP: Dr. Jose Ramon Turner MD Status: ADM IN Location: [address] 1 Subjective Subjective Patient seen and [...] 75.4 H, Lymph % (Auto) 16.8 L, Winkler % (Auto) 6.0, Eos % (Auto) 0.5, [...] (Auto) 92.0 H, Lymph % (Auto) 4.6L, Winkler % (Auto) 2.3, Eos % (Auto) 0.2, [...] is therapeutic. Charges/Coding Visit Charges Inpatient E&M: 05997 Subs Hosp L2 06/28/22 1527 <Electronically signed by Pau Wei MD> Pau Wei MD Cosigner Signature (if applicable): CC: ~ Signed [facility] Work Phone: 1([phone]) 386-436804-23-[address] Hastings [facility] June 28, 2022 2:56am Note Date/Time June 27, 2022 11: 30pm [facility] Medical Records Department [address] [place] [address] Emergency Department Summary 06/27/22 MR#: [id number] Acct: [id number] Name: RENATAYEFRI RESHMA Rep #:[id number] : 1965 57 From: Livan Lin PCP: Dr. Jose Ramon Turner MD Status: ADM IN Location: [address] 1 HPI History of Present Illness Chief Complaint: Chest Pain Informant: patient, spouse/S.O. and family Narrative Narrative: 10-day history worsening dyspnea with exertion with mild chest discomfort. Significant other present. Diagnosed history of CHF had a heart cath at [facility] that was negative. History of paroxysmal [...] 75.4 H Lymph % (Auto) 16.8 L Winkler % (Auto) 6.0 Eos % (Auto) 0.5 [...] (Auto) Neut % (Auto) Lymph % (Auto) Winkler % (Auto) Eos % (Auto) Baso % [...] Atrial fibrillation Disposition Disposition: Acute Care [facility] Discharge Date/Time: 06/28/22 01:02 What to do if you have Problems For any increased pain, shortness of breath, bleeding, nausea or vomiting, chest pain, or any unexpected problems, contact your Primary Care Provider. Call [facility] ([phone]) or report to the closest Emergency Room. Call 911 if necessary. 06/28/22 0256 <Electronically signed by Livan Lin> Cosigner Signature (if applicable): CC: Dr. Jose Ramon Turner MD ~ Signed [facility] Work Phone: 1(149) 111-693204-23-2023 History and physical note Author Dr. Lu [facility] June 28, 2022 12:52am Note Date/Time June 28, 2022 12: 20am [facility] Medical Records Department [address] [place] [address] H&P Exam - Hospitalist 06/28/22 0007 MR#: [id number] Acct: [id number] Name: YEFRI YANEZ Rep #:[id number] : 1965 57 From: Estelita Lu MD PCP: Dr. Jose Ramon Turner MD Status: ADM IN Location: [place] [id number]- 1 HPI - General General Date of Admission: 06/28/22 Date of Service: 06/28/22 Chief Complaint: Dyspnea, chest pain, wheezing, cough, recent incorrect Rx bumex. HPI Narrative The patient is a 57 y/o M w/ PMHx: Obesity, NIMCO on CPAP, PAF s/p prior cardioversion on coumadin, COPD, HTN, HLD, GERD, Metastatic renal CA s/p R nephrectomy, Tobacco use who presents to the [facility] ED on 06/27/22 with history of [...] 75.4 H, Lymph % (Auto) 16.8 L, Winkler % (Auto) 6.0, Eos % (Auto) 0.5, [...] 23:42 EDT Reading Location ID and State: [address] [place] [address] Tel , Service support , Assessment & Plan Assessment/Plan (1) Dyspnea: PLAN: Plan The patient is a 57 y/o M w/ PMHx: Obesity, NIMCO on CPAP, PAF s/p prior cardioversion on coumadin, COPD, HTN, HLD, GERD, Metastatic renal CA s/p R nephrectomy, Tobacco use who presents to the [facility] ED on 06/27/22 with history of [...] spine 12/2021, 02/06/2022 right radical nephrectomy at [facility], CT scan on 03/26/2022 showed no evidence [...] 75 minutes. Charges/Coding Visit Charges Inpatient E&M: 78053 Init Hosp L3 Procedures Hospitalists Procedures: 48020 Advncd Care Plan 30 Min 06/28/22 0052 <Electronically signed by Estelita Lu MD> Cosigner Signature (if applicable): CC: Dr. Estelita Lu MD; Dr. Jose Ramon Turner MD~ Signed [facility] Work Phone: [phone]) 609-173603-15-[address] Che [facility] May 20, 2022 9:40am Note Date/Time May 20, 2022 9:4 0am [facility] Medical Records Department [address] [place] [address] Discharge Summary 05/20/22 0939 MR#: [id number] Acct: [id number] Name: YEFRI YANEZ Rep #:[id number] : 1965 57 From: Jesús Che DO PCP: Dr. Jose Ramon Turner MD Status: ADM IN Location: [place] [address] Providers Date of Admission: 05/18/22 Primary Care [...] to been established with oncology at the [facility] and then at [facility] but due to insurance changes, he will be following up with [place] [facility]. DVT ppx: Coumadin therapeutic Discharge home [...] Qty: 60 0RF Referrals / Follow Up: [facility] [Provider Group] - 05/27/22 10:30 am *[facility] [Provider Group] - Within 1 Month Jose Ramon Turner MD [Primary Care Provider] - Within 2 Weeks Disposition Disposition (needs filled in before D/C Order can be placed): Home, Self Care Charges/Coding Visit Charges Inpatient E&M: 41997 Disch Hosp >30min 05/20/22 0940 <Electronically signed by Jesús Che DO> Cosigner Signature (if applicable): CC: Dr. Jose Ramon Turner MD; Dr. Jesús Che DO~ Signed [facility] Work Phone: [phone] Che [facility] May 20, 2022 9:39am Note Date/Time May 20, 2022 9:3 3am [facility] Medical Records Department [address] [place] [address] Instructions for Home/Discharge Instructions 05/20/22 0932 MR#: [id number] Acct: [id number] Name: YEFRI YANEZ Rep #:[id number] : 1965 57 From: Jesús Che DO [...] Qty: 60 0RF Referrals / Follow Up: [facility] [Provider Group] - 05/27/22 10:30 am *[facility] [Provider Group] - Within 1 Month Jose Ramon Turner MD [Primary Care Provider] - Within 2 Weeks Disposition Disposition (needs filled in before D/C Order can be placed): Home, Self Care 05/20/22 0939<Electronically signed by Jesús Che DO>Jesús Che DO CC: Dr. Jose Ramon Turner MD; Dr. Alicia Dukes MD ~ Signed [facility] Work Phone: [phone]) 422-951303-15-[address] Che [facility] May 20, 2022 9:32am Note Date/Time May 20, 2022 8:3 4am [facility] Medical Records Department [address] [place] [address] Progress Note - Hospitalist 05/20/22 0831 MR#: [id number] Acct: [id number] Name: YEFRI YANEZ Rep #:[id number] : 1965 57 From: Jesús Che DO PCP: Dr. Jose Ramon Turner MD Status: ADM IN Location: [place] [address]- Reason for Visit Reason for Visit: Diagnoses [...] Cosigner Signature (if applicable): CC: ~ Signed [facility] Work Phone: 1([phone]) 329-609803-14-[address] Che [facility] May 19, 2022 1:50pm Note Date/Time May 19, 2022 8:1 1am [facility] Medical Records Department [address] [place] [address] Progress Note - Hospitalist 05/19/22 0808 MR#: [id number] Acct: [id number] Name: YEFRI YANEZ Rep #:[id number] : 1965 57 From: Jesús Che DO PCP: Dr. Jose Ramon Turner MD Status: ADM IN Location: [place] [address] Reason for Visit Reason for Visit: Diagnoses [...] 80.8 H, Lymph % (Auto) 13.3 L, Winkler % (Auto) 4.9, Eos % (Auto) 0.2, [...] 80.2 H, Lymph % (Auto) 14.8 L, Winkler % (Auto) 4.0, Eos % (Auto) 0.5, [...] Coumadin therapeutic Charges/Coding Visit Charges Inpatient E&M: 73872 Subs Hosp L2 05/19/22 1350 <Electronically signed by Jesús Che DO> Cosigner Signature (if applicable): CC: ~ Signed [facility] Work Phone: [phone]) [phone] Banda [facility] May 18, 2022 8:58pm Note Date/Time May 18, 2022 4:1 8pm [facility] Medical Records Department [address] [place] [address] Emergency Department Summary 05/18/22 MR#: [id number] Acct: [id number] Name: YEFRI YANEZ Rep #:[id number] : 1965 57 From: Kassy Banda MD PCP: Dr. Jose Ramon Turner MD Status: ADM IN Location: [place] [address] HPI History of Present Illness Chief Complaint: [...] Medical decision making narrative: Patient placed on nurse monitoring to evaluate for arrhythmia. 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 Call [facility] ([phone]) or report to the closest Emergency Room. Call 911 if necessary. 05/18/222057 <Electronically signed by Kassy Banda MD> Cosigner Signature (if applicable): CC: Dr. Jose Ramon Turner MD ~ Signed [facility] Work Phone: 1(716) 266-554603-13-2023 History and physical note Author Dr. Dukes [facility] May 18, 2022 7:34pm Note Date/Time May 18, 2022 6:3 8pm [facility] Medical Records Department [address] [place] [address] H&P Exam - Hospitalist 05/18/22 1823 MR#: [id number] Acct: [id number] Name: YEFRI YANEZ Rep #:[id number] : 1965 57 From: Alicia Dukes MD PCP: Dr. Jose Ramon Turner MD Status: ADM IN Location: [facility]- 1 HPI - General General Date of Admission: 05/18/22 Date of Service: 05/18/22 Chief Complaint: SOB, weight gain HPI Narrative YEFRI YANEZ, is a 57 M with a history of congestive heart failure, hypertension, NIMCO, renal cancer status post unilateral nephrectomy in March, A-fib on Coumadin presented to [facility] 05/18/2022 with increasing weight and shortness [...] 80.8 H, Lymph % (Auto) 13.3 L, Winkler % (Auto) 4.9, Eos % (Auto) 0.2, [...] State: [facility] / [place] , Service support , Assessment [...] 60 minutes Charges/Coding Visit Charges Inpatient E&M: 14474 Init Hosp L2 05/18/221933 <Electronically signed by Alicia Dukes MD> Cosigner Signature (if applicable): CC: Dr. Jose Ramon Turner MD; Dr. Alicia Dukes MD~ Signed [facility] Work Phone: [phone]) [phone] Chiu [facility] April 15, 2022 4:54pm Note Date/Time April 15, 2022 4 :54pm [facility] Medical Records Department [facility] [place] [address] Progress Note - Hospitalist 04/15/22 1647 MR#: [id number] Acct: [id number] Name: RENATAYEFRI RESHMA Rep #:[id number] : 1965 57 From: Carol Chiu DO PCP: Dr. Jose Ramon Turner MD Status: ADM IN Location: [place] [address] Reason for Visit Reason for Visit: Diagnoses [...] 74.5 H, Lymph % (Auto) 15.1 L, Winkler % (Auto) 8.4, Eos % (Auto) 0.4, [...] distress and well nourished Constitutional Narrative: Obese, -Albanian, male lying in bed on supplemental oxygen [...] be deferred till tomorrow -Troponins have been [phone] -This elevation may be related to his [...] post nephrectomy 02/06/2022--> Dr. Aravind Lopez at [facility] -Currently on chemotherapy -Patient has undergone [...] -INR therapeutic Charges/Coding Visit Charges Inpatient E&M: 11796 Subs Hosp L2 04/15/22 1654 <Electronically signed by Carol Chiu DO> Cosigner Signature (if applicable): CC: ~ Signed [facility] Work Phone: 1(651) 519-699402-07-[address] Chiu [facility] April 14, 2022 6:11pm Note Date/Time April 14, 2022 7 :40am [facility] Medical Records Department [address] [place] [address] Progress Note - Hospitalist 04/14/22 0737 MR#: [id number] Acct: [id number] Name: YEFRI YANEZ Rep #:[id number] : 1965 57 From: Carol Chiu DO [...] nephrectomy was performed on February 06 by Aarvind Lopez at [facility]. He does have metastatic disease to [...] 79.4 H, Lymph % (Auto) 12.7 L, Winkler % (Auto) 7.1, Eos % (Auto) 0.0, [...] 21:56 EST Reading Location ID and State: [address] [place] [address] Tel , Service support , Physical Exam Const alert, oriented x3, no apparent distress and well nourished Constitutional Narrative: Obese, -Albanian, male sitting up in bed on supplemental [...] to be done tomorrow -Troponins have been [phone] -This elevation may be related to his [...] post nephrectomy 02/06/2022--> Dr. Aravind Lopez at [facility] -Currently on chemotherapy -Patient has undergone [...] in a.m. Charges/Coding Visit Charges Inpatient E&M: 27883 Subs Hosp L2 04/14/22 1811 <Electronically signed by Carol Chiu DO> Cosigner Signature (if applicable): CC: ~ Signed [facility] Work Phone: 1(843) 242-562602-07-2023 History and physical note Author Dr. Camacho [facility] April 14, 2022 12:43am Note Date/Time April 14, 2022 1 2:24am [facility] Medical Records Department [address] [place] [address] H&P Exam - Hospitalist 04/13/22 2334 MR#: [id number] Acct: [id number] Name: YEFRI YANEZ Rep #:[id number] : 1965 57 From: Dangelo Camacho MD [...] 79.4 H, Lymph % (Auto) 12.7 L, Winkler % (Auto) 7.1, Eos % (Auto) 0.0, [...] is subtherapeutic. Charges/Coding Visit Charges Inpatient E&M: 34150 Init Hosp L3 04/14/22 0043 <Electronically signed by Dangelo Camacho MD> Cosigner Signature (if applicable): CC: Dr. Jose Ramon Turner MD; Dr. Dangelo Camacho MD~ Signed [facility] Work Phone: [phone]) 393-370202-07-[address] Dunn [facility] April 13, 2022 11:51pm Note Date/Time April 13, 2022 1 0:31pm [facility] Medical Records Department [address] [place] [address] Emergency Department Summary 04/13/22 MR#: [id number] Acct: [id number] Name: YEFRI YANEZ Rep #:[id number] : 1965 57 From: Kei Dunn DO [...] February [address] Aravind Lopez at [facility]. Patient reported that he is on [...] 79.4 H Lymph % (Auto) 12.7 L Winkler % (Auto) 7.1 Eos % (Auto) 0.0 [...] your Primary Care Provider. Call [facility] ([phone]) or report to the closest Emergency Room. Call 911 if necessary. 04/13/22 2351 <Electronically signed by Kei Dunn DO> Cosigner Signature (if applicable): CC: Dr. Jose Ramon Turner MD ~ Signed [facility] Work Phone: [phone]) [phone] Dunn [facility] April 13, 2022 11:51pm Note Date/Time April 13, 2022 1 0:31pm [facility] Medical Records Department [address] [place] [address] Emergency Department Summary 04/13/22 MR#: [id number] Acct: [id number] Name: YEFRI YANEZ Rep #:[id number] : 1965 57 From: Kei Dunn DO [...] February [address] Aravind Lopez at [facility]. Patient reported that he is on [...] 79.4 H Lymph % (Auto) 12.7 L Winkler % (Auto) 7.1 Eos % (Auto) 0.0 [...] problems, contact your Primary Care Provider. Call [employer] [facility] ([phone]) or report to the closest Emergency Room. Call 911 if necessary. 04/13/22 2351 <Electronically signed by Kei Dunn DO> Cosigner Signature (if applicable): CC: Dr. Jose Ramon Turner MD ~ Signed [facility] Work Phone: 1(501) 945-854102-02-2023 NoteHNO ID: [id number] Author: Sary Garcia RN Service: ? Author Type: Registered Nurse Type: Progress Notes Filed: 04/09/2022 1:29 PM Note Text: Patient treatment being held today per physician discretion. Sary Garcia RN [facility]02-02-2023 NoteHNO ID: [id number] Author: Liliam Ashley RN Service: ? Author Type: Registered Nurse Type: Progress Notes Filed: 04/09/2022 1:29 PM Note Text: Header Set Up Operator Chart Processing Date: 2022 Laboratory: Draw labs: Pending Labs. Office visit prior to treatment please verify all needed labs were drawn and review results. Chemotherapy Orders: Orders NOT released to Pharmacy. TREATMENT RN TO RELEASE Consents: Consent form needs signed by patient Special Instructions: Validate height [facility] History of Present illness Narrative* Sary Garcia RN - 04/09/2022 1:29 PM EST Patient treatment being held today per physician discretion. Sary Garcia RN BSN * Liliam Ashley RN - 04/09/2022 11:30 AM EST Header Set Up Operator Chart Processing Date: 2022 Laboratory: Draw labs: Pending Labs. Office visit prior to treatment please verify all needed labs were drawn and review results. Chemotherapy Orders: Orders NOT released to Pharmacy. TREATMENT RN TO RELEASE Consents: Consent form needs signed by patient Special Instructions: Validate height Liliam Ashley RN documented in [facility]Tr[facility]-2023 NoteHNO ID: [id number] Author: Haylee Wilburn MD Service: ? Author Type: Physician Type: Progress Notes Filed: 04/09/2022 4:21 PM Note Text: [facility] Progress Note SERVICE DATE: April 09, [...] started treatment with cabo + nivo on [facility] 1820 Trial on 08/08/2021 at [facility]. He has baseline HTN and developed worsening HTN after starting treatment. His cabo was held on 08/18/2021, resumed on 09/11/2021. The Nivo was held on 09/11/21 due to pneumonitis, and prednisone 60 mg daily was started and tapered off within about one month. Due to insurance change, he was taken off the trial and referred to [facility] Oncology. All treatments were supposed to be [...] radical nephrectomy by Dr. Aravind Hernandez at [facility] in [facility] on 02/06/2022. PATHOLOGY: -Renal cell carcinoma, clear-cell type, 5.3 x 3.0 x 2.7 cm, ISUP nuclear grade 3. -Carcinoma invades renal vein and lurdes-nephritic adipose tissue. -Margins of resection are negative for carcinoma. -Lymphovascular invasion not identified. -Regional lymph nodes not submitted. -[id number]. 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 He denies pain in the chest wall [...] Take 2 table (more content not included)...[facility]01-26-2023 Miscellaneous Notes* Telephone Encounter - Donavon Eastman - 04/02/2022 11:02 AM EST Patient did not show for appointment with , left message to call office put on recall Donavon Eastman' documented in this encounterTr[facility]01-26-2023 Miscellaneous Notes* Telephone Encounter - America Schwartz RN - 04/02/2022 10:51 AM ESTSummary: Appointment Called patient and in regards to missed office visit with Dr. Wilburn, and immunotherapy appointment. No answer left messages for patient to call and reschedule. America Schwartz RN, BSN, OCN documented in this encounterTrinity Health System [facility]01-19-2023 NoteHNO ID: [id number] Author: Jerica Parsons, RT(R) Service: Radiology Author [...] Yanez DATE: March 26, 2022 TIME: 10:16 [facility]01-18-2023 Miscellaneous Notes* Telephone Encounter - Tania Parekh RN - 03/25/2022 8:57 AM EST Patient called stating his insurance is not approved for our office and that Dr. Wilburn needs to place a Referral for [place]. I reminded him that last week he called me telling me that his insurance is making him go to [facility] for the scans and not [place] and do not understand how he could [...] insurance information.Tania Parekh RN documented in this encounterTrinity Health System [facility] City [facility]01-16-2023 NoteHNO ID: [id number] Author: RT Citlaly(R) Service: ? Author Type: [...] 08:45 PATIENT DISCHARGED TO: Ambulatory patient, left [place] department area. A Diagnostic radioactive procedure has taken place, with no further precautions necessary other than routine body substance precautions. More information regarding radiation safety can be found using this link: [email or web address] [email or web address]%[email or web address]%20Medicine%20Procedures.pdf SIGNATURE: STEPHANIE Boucher) PATIENT NAME: Yefri Yanez DATE: March 23, 2022 TIME: 12:10 PM PAGER/CONTACT #:[facility]01-16-2023 History of Present illness Narrative* STEPHANIE [...] 08:45 PATIENT DISCHARGED TO: Ambulatory patient, left [place] department area. A Diagnostic radioactive procedure has taken place, with no further precautions necessary other than routine body substance precautions. More information regarding radiation safety can be found usingthis link: [email or web address]-% 20Diagnostic%20Nuclear%20Medicine%20Procedures.pdf SIGNATURE: RT Citlaly(Damion) PATIENT NAME: Yefri Yanez DATE: March 23, 2022 TIME: 12:10 PM PAGER/CONTACT #: documented in this encounterTrinity Health System [facility] Center01-09-2023 Miscellaneous Notes* Telephone Encounter - Malachi Schaffer [facility] - 03/16/2022 11:27 AM EST Prior authorization was approved for Inlyta. Plan Name: [employer] [place] reference number: [id number] Approval Dates: 03/08/2022 - 03/13/2023 However, s/he is required to use [facility] to fill this medication. Will queue prescription(s) to go to designated specialty pharmacy. For reference, their pharmacy phone number is [phone]. No further action by [facility]. Radha Schaffer, PharmD, AAMIVP Clinical Pharmacist, Oncology [facility] P: ; F: Pool: P CC [facility] ONCOLOGY Pool #: [id number] documented in this encounterTrinity Health System [facility] City [facility] Center01-05-2023 Miscellaneous Notes* Telephone Encounter - America Schwartz RN - 03/12/2022 10:37 AM ESTSummary: Appointment LMOM with the appointment dates, times and location of upcoming bone scan and CT scans. Bone scan 03/23/22 at 830 am here at the [facility] hospital. CT scans at [place] urgent [facility] 03/24/22 at 1pm. America Reed RN, BSN, OCN documented in this encounterTrinity Health System [facility]01-05-2023 [facility]-2023 [facility]01-05-2023 History of Present illness Narrative* Adrienne Chung (Third Rail Installer) - 03/12/2022 8:13 AM EST [facility] received prescription(s) for Inlyta from Dr. Wilburn's office. Benefits investigation was conducted, indicating that a prior authorization is required by patient's insurance plan with [employer]. Encounter will be updated once prior authorization has been submitted by [facility]. Adrienne Chung, [facility], Oncology P: / F: documented in this encounterTrinity Health System [facility]01-04-2023 NoteHNO ID: [id number] Author: Haylee Wilburn MD Service: ? Author Type: Physician Type: Progress Notes Filed: 03/11/2022 4:16 PM Note Text: [facility] Progress Note SERVICE DATE: March 11, [...] started treatment with cabo + nivo on [facility] 1820 Trial on 08/08/2021 at [facility]. He has baseline HTN and developed worsening HTN after starting treatment. His cabo was held on 08/18/2021, resumed on 09/11/2021. The Nivo was held on 09/11/21 due to pneumonitis, and prednisone 60 mg daily was started and tapered off within about one month. Due to insurance change, he was taken off the trial and referred to [facility] Oncology to resume the treatment. He was scheduled to have nephrectomy on 11/04/21, but delayed due to his back pain. He underwent palliative XRT to L3-L5 (2,000 cGy in 5 fx), completed 12/26/21). He underwent da Farzad assisted robotic right radical nephrectomy at [facility] in [facility]. I do not have the official pathology report yet. We have made multiple requests to [facility] for the surgical pathology, to [...] perflutren lipid microsphere (more content not included)...[facility] 03-11-2022 History of Present illness Narrative* Haylee Wilburn MD - 03/11/2022 1:25 PM EST Images from the original note were not included. [facility] Progress Note SERVICE DATE: March 11, [...] started treatment with cabo + nivo on [facility] 1820 Trial on 08/08/2021 at [facility]. He has baseline HTN and developed worsening HTN after starting treatment. His cabo was held on 08/18/2021, resumed on 09/11/2021. The Nivo was held on 09/11/21 due to pneumonitis, and prednisone 60 mg daily was started and tapered off within about one month. Due to insurance change, he was taken off the trial and referred to [facility] Oncology to resume the treatment. He was scheduled to have nephrectomy on 11/04/21, but delayed due to his back pain. He underwent palliative XRT to L3-L5 (2,000 cGy in 5 fx), completed 12/26/21). He underwent da Farzad assisted robotic right radical nephrectomy at [facility] in [facility]. I do not have the official pathology report yet. We have made multiple requests to [facility] for the surgical pathology, to no avail. [...] by Dr. Lopez at [facility], but I do not have the surgical [...] cc: Daksha Turner MD documented in this encounterTrinity Health System [facility] City [facility] Center12-27-2022 NoteSend Summary: Discharge Summary Providers: Provider RoleProvider Name Aravind Kinsey Christopher Note Recipients: Aravind Hernandez MD Ranney, Christopher, MD - [phone] [] Discharge: Summary: Admission Date: .06-Feb-2022 08:57:00 [...] Data Referenced From Consult-DACR, Medicine 07-Feb-2022 16:43[facility]12-13-2022 NoteHNO ID: [id number] Author: Haylee Wilburn MD Service: ? Author Type: Physician Type: Progress Notes Filed: 02/17/2022 5:25 PM Note Text: [facility] Progress Note SERVICE DATE: February 17, 2022 [...] started treatment with cabo + nivo on [facility] 1820 Trial on 08/08/2021 at [facility]. He has baseline HTN and developed worsening HTN after starting treatment. His cabo was held on 08/18/2021, resumed on 09/11/2021. The Nivo was held on 09/11/21 due to pneumonitis, and prednisone 60 mg daily was started and tapered off within about one month. Due to insurance change, he was taken off the trial and referred to [facility] Oncology to resume the treatment. He was scheduled to have nephrectomy on 11/04/21, but delayed due to his back pain and palliative XRT to L3-L5 (2,000 cGy in 5 fx, completed 12/26/21). His back pain has resolved. He underwent da Farzad assisted robotic right radical nephrectomy at [facility] in [facility]. I do not have the official [...] and light-headedness. Hematol (more content not included)...[facility]12-13-2022 History of Present illness Narrative* Haylee Wilburn MD - 02/17/2022 5:02 PM EST Images from the original note were not included. [facility] Progress Note SERVICE DATE: February 17, [...] started treatment with cabo + nivo on [facility] 1820 Trial on 08/08/2021 at [facility]. He has baseline HTN and developed worsening HTN after starting treatment. His cabo was held on 08/18/2021, resumed on 09/11/2021. The Nivo was held on 09/11/21 due to pneumonitis, and prednisone 60 mg daily was started and tapered off within about one month. Due to insurance change, he was taken off the trial and referred to [facility] Oncology to resume the treatment. He was scheduled to have nephrectomy on 11/04/21, but delayed due to his back pain and palliative XRT to L3-L5 (2,000 cGy in 5 fx, completed 12/26/21). His back pain has resolved. He underwent da Farzad assisted robotic right radical nephrectomy at [facility] in [facility]. I do [...] MD on 10/20/2021 PLAN: Old records from [facility] including surgical pathology and scans. Follow-up in 3 weeks regarding systemic therapy. Haylee Wilburn MD cc: Daksha Turner MD documented in this encounterTrinity Health System [facility]12-13-2022 Miscellaneous Notes* Telephone Encounter - [...] with Dr. Tello. Please call her at [phone]. documented in this encounterTrinity Health System [facility] City [facility] Center12-12-2022 NoteHNO ID: [id number] Author: Sayra Tello MD Service: ? Author Type: Physician Type: Progress Notes Filed: 02/16/2022 11:29 AM Note Text: [facility] OUTPATIENT VISIT DATE 02/16/2022 OUTPATIENT VISIT TYPE NEW PATIENT PRIMARY CARE PHYSICIAN: Daksha Turner ([facility]) [address] [place] [address] HISTORY OF PRESENT ILLNESS: 57-year-old male CAD, [...] vaping sometimes tobacco. 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 PAST MEDICAL HISTORY Diagnosis Date Abdominal [...] tablet by kellie (more content not included)...[facility]12-12-2022 Instructions* Patient Instructions* Florian Mello RN - 02/16/2022 11:23 AM EST We will call you with the date and time of your test. Please report to the Cardiac Diagnostics Department: Located on the 2nd floor of the surgery center on [address] [place] [address] ([facility]). Cto and free parking is available. The test may be scheduled at a different location. If this happens the high school science tutor will notify you when calling to give you the date and time information. If you have any questions regarding the test or if you need to cancel / reschedule your appointment, please call [phone] as soon as possible. Please refer to [...] them, faxthem, drop them off, or use ZEB. If you have any questions before your next appointment please call Florian Montana RN @ [phone] ext [phone]. If Adrienne asked you to call her so she can help you with Tegile Systemshart you can call her at [phone] ext [phone]. documented in this encounterTrinity Health System [facility] Center12-12-2022 History of Present illness Narrative* Sayra Tello MD - 02/16/2022 10:00 AM EST Images from the original note were not included. [facility] OUTPATIENT VISIT DATE 02/16/2022 OUTPATIENT VISIT TYPE NEW PATIENT PRIMARY CARE PHYSICIAN: Daksha Turner ([facility]) [address] [place] [address] HISTORY OF PRESENT ILLNESS: 57-year-old male CAD, [...] vaping sometimes tobacco. 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 PAST MEDICAL HISTORY Diagnosis Date Abdominal [...] previous ECGs available Confirmed by YARY CLEMENT, [facility] ([id number]) on 01/20/2022 8:35:[address] Result Conclusion CT CHEST W IVCON Exam End: 11/20/2021 10:37 AM (Edited Result - FINAL) Addendum: * * *Final Report* * * * * * SEE BOTTOM OF REPORT FOR ADDENDED TEXT * * * DATE OF EXAM: Nov 20 2021 10:37AM [facility] 0539 - CT CHEST W IVCON / [...] vaping sometimes tobacco. 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 Plan: Reviewed all the prior reports [...] diagnosis) Sayra Tello MD documented in this encounterTrinity Health System [facility] Center12-09-2022 NoteHNO ID: [id number] Author: Suman Peterosn APRN.BELLOWS FILLER Service: ? Author Type: Nurse Practitioner Type: [...] or develops any concerning symptoms. Suman Peterson APRN.[facility]12-09-2022 Nurse Note* Tamiko Mason, RN - 02/13/2022 2:13 PM EST Images from the original note were not included. Radiation Therapy - Nursing Note (Follow-up) PATIENT NAME: Yefri Yanez PATIENT February 13, 2022 [facility] FACILITY/LOCATION: [facility] Reason for visit: Follow up. Subjective Data Patient reports 8/10 pain r/t recent right nephrectomy at on 02/06. Additional Data Do you want to see a Substation Electrician Supervisor? No Difficulty performing or completing routine [...] MOB 02/17/2022 11:30 AM Haylee Wilburn MD [facility] Courtney CLEMENT MOB SIGNED by: Tamiko Mason RN documented in this encounterTrinity Health System [facility] Center12-09-2022 History of Present illness Narrative* Suman Peterson, KEYUR.BELLOWS FILLER - 02/13/2022 2:02 PM EST Radiation Oncology [...] symptoms. Suman Peterson APRN.BEATRICE documented in this encounterTrinity Health System [facility] Center12-06-2022 Hospital Discharge instructions* Follow Up Appointment 1:Physician/Dept/Service: Dr. Lockett for Referral: post op follow upCall to Schedule in: 2 weeksPhone Number: [phone]: Please call to schedule appointment * Follow [...] WORRISOME - NOTIFY YOUR PHYSICIAN OR RESIDENT MACHINE GROUP LEADER. - Fever g reater than 101 F or 38.3 C, chills, nausea, vomiting, or feeling ill. - Inability to urinate. - Drainage of foul smelling fluid (pus) from the incision or drain sites. - Excruciating pain that is not controlled by prescription or fbnr-lif-qvhycoi medications. * Medication Information:- You were sent [...] appointments, please call our Main Office at [phone]. [facility] NotePROCEDURE DETAILS Preoperative Diagnosis: renal cell carcinoma, congestive heart failure Postoperative Diagnosis: renal cell carcinoma, congestive heart failure Surgeon: Aravind Hernandez MD Resident/Fellow/Other Horse Racetrack Manager: Clau Diallo MD Procedure: laparoscopic right [...] the xiphoid process. A 12 mm assistant account executive port was placed a hands-breadth inferolateral to [...] then closed in several layers. Initially, several vycjqh-mw-ddpix sutures were placed with 0 Vicryl to reapproximate the bellies of the rectus abdominis. The anterior rectus fascia was then closed using running 0 PDS suture x2. Subcutaneous fat was then c (more content not included)...[facility]12-02-2022 Note History & Physical [...] the note. I personally evaluated the patient [id number] Electronic Signatures: Aravind Hernandez) (Signed 07-Feb-2022 09:05) Authored: Note Completion Co-Signer: History & Physical Reviewed, ERAS, Consent, Note Completion Clau Diallo (Resident)) (Signed 06-Feb-2022 07:12) Authored: History & Physical Reviewed, ERAS, Consent, Note Completion Last Updated: 07-Feb-2022 09:05 by Aravind Hernandez)[facility] 01-22-2022 Miscellaneous Notes* Telephone Encounter - Bairon Landers MA - 01/22/2022 1:00 PM EST Pt called in to request a refill on his torsemide to be sent to [facility] in [place], this request wassent to Kitty Carballo for approval and processing. Per Kitty this was refused due to we don't prescribe this medication, I called to advise Pt that he will need to contact the prescribing doctor to get a refill on this mediation. He verbalized understanding. documented in this encounterTrinity Health System [facility] Center11-14-2022 NoteHNO ID: [id number] Author: RT Kourtney(R) Service: Radiology Author Type: Technologist Type: Progress Notes Filed: 01/19/2022 11:03 AM Note Text: Summary: CHEST Radiology Service Progress Note PATIENT NAME: Yefri CASTILLON: [id number] DATE OF SERVICE: January 19, 2022 TIME: [...] BY: RT Kourtney(R) January 19, 2022 11:03 [facility]11-14-2022 History of Present illness Narrative* RT [...] 19, 2022 11:03 AM documented in this encounterTrinity Health System [facility] Center10-28-2022 NoteHNO ID: [id number] Author: Alfredo Xavier MD Service: Radiation Oncology Author Type: Physician Type: Progress Notes Filed: 01/07/2022 12:35 AM Note Text: YEFRI YANEZ [id number] 2022 [facility] Department of Radiation Oncology [facility] RADIATION ONCOLOGY: COMPLETION NOTE DATE OF SIMULATION: 12/12/2021 DATES OF TREATMENT: 12/22/2021 to 12/26/2021 TREATMENT MACHINE: Nextt_Newco LS15 TREATMENT AREA: L3-L5 , R CW DIAGNOSIS: 57 year old male with Malignant neoplasm of right kidney, except renal pelvis , histological stage [id number] and clinical stage IV CONCURRENT THERAPY: DELIVERED [...] 24:36 PM Electronically Signed cc: Daksha Mills, [facility]10-28-2022 History of Present illness Narrative * Alfredo Xavier MD - 2022 12:00 AM EDT YEFRI YANEZ [id number] 2022 [facility] Department of Radiation Oncology [facility] RADIATION ONCOLOGY: COMPLETION NOTE DATE OF SIMULATION: 12/12/2021 DATES OF TREATMENT: 12/22/2021 to 12/26/2021 TREATMENT MACHINE: Nextt_Newco LS15 TREATMENT AREA: L3-L5 , R CW DIAGNOSIS: 57 year old male with Malignant neoplasm of right kidney, except renal pelvis , histological stage [id number] and clinical stage IV CONCURRENT THERAPY: DELIVERED [...] cc: Daksha Mills Michael documented in this encounterTrinity Health System [facility] Center10-25-2022 Miscellaneous Notes* Telephone Encounter - Adriana Hodge MD - 12/30/2021 1:53 PM EDT IC Adriana Hodge MD documented in this encounterTrinity Health System [facility] City [facility] Center10-23-2022 Miscellaneous Notes* Telephone Encounter - [...] the anaestheic including but not limited to WA, CVA, DVT, and PE, and the risks [...] proceed. Adriana Hodge MD documented in this encounterTrinity Health System [facility] City [facility] Center10-22-2022 Miscellaneous Notes* Telephone Encounter - Adriana Hodge MD - 12/27/2021 7:07 PM EDT I tried to call to move his care forward, but had to leave messages on both lines Adriana Hodge MD documented in this encounterTrinity Health System [facility] City [facility] Center10-07-2022 NoteHNO ID: [id number] Author: Alfredo Xavier MD Service: Radiation Oncology Author Type: Physician Type: Progress Notes Filed: 12/17/2021 12:34 AM Note Text: YEFRI YANEZ [id number] 12/12/2021 [facility] Department of Radiation Oncology Treatment Planning [...] DVH. Electronically Signed Alfredo Xavier M.D. :19 [facility]10-07-2022 NoteHNO ID: [id number] Author: Alfredo Xavier MD Service: Radiation Oncology Author Type: Physician Type: Progress Notes Filed: 12/17/2021 12:34 AM Note Text: YEFRI YANEZ [id number] 12/12/2021 [facility] Department of Radiation Oncology [facility] RADIATION ONCOLOGY SIMULATION NOTE DATE OF SIMULATION: 12/12/2021 MACHINE: YourNextLeap CT DIAGNOSIS: Malignant neoplasm of right kidney, [...] nursing. Electronically Signed Alfredo Xavier M.D. :06 [facility]10-07-2022 History of Present illness Narrative* Alfredo Xavier MD - 12/12/2021 12:00 AM EDT YEFRI YANEZ [id number] 12/12/2021 [facility] Department of Radiation Oncology Treatment Planning [...] Xavier M.D. :19 PM documented in this encounterTrinity Health System [facility]10-07-2022 History of Present illness Narrative* Alfredo Xavier MD - 12/12/2021 12:00 AM EDT YEFRI YANEZ [id number] 12/12/2021 [facility] Department of Radiation Oncology [facility] RADIATION ONCOLOGY SIMULATION NOTE DATE OF SIMULATION: 12/12/2021 MACHINE: YourNextLeap CT DIAGNOSIS: Malignant neoplasm of right kidney, [...] per nursing. Electronically Signed Alfredo Xavier M.D. 10/11/40379:06 PM documented in this encounterTrinity Health System [facility]10-04-2022 NoteHNO ID: [id number] Author: Alfredo Xavier MD Service: ? Author [...] He was evaluated [facility] [place] [facility] [place] As part of his work-up a [...] Musculoskeletal: No e (more content not included)...[facility] 12-09-2021 Nurse Note* Tamiko Mason RN - 12/09/2021 10:18 AM EDT Images from the original note were not included. Radiation Therapy - Nursing Note (Consult) PATIENT NAME: Yefri Yanez PATIENT December 09, 2021 [facility] FACILITY/LOCATION: [facility] Chief Complaint: Metastatic Renal Cell Cancer Reason for visit: Consult. Referring physician: Internal provider Dr. Cox, Dr. Wilburn Subjective Data: Patient denies pain at this time, he reports occasional pain in his lower back farnaz cramping sensation in the back of his thighs. He denies pain to the chest wall/rib. He reports that he was just discharged today from [facility]. He was admitted on Wednesday for shortness of breath. He reportedly received lasix and breathing treatments. He has an upcoming appt with his service architect, Dr. Acevedo at [facility]. Additional Data Do you want to see a Substation Electrician Supervisor? No Are you interested in information about fertility? No Sexual Activity: Male: N/A Stress Scale: On a scale of 0 to 10, what number best describes how much distress you have experienced in the past week?(0 being no distress and 10 being extreme distress) 2 Social work notified: no GENERAL INFORMATION: PREVIOUS CHEMOTHERAPY: Pt started chemotherapy with Cabometyx + Nivolumab as per [facility] 1819 Trial. Reportedly this was held d/t [...] oxygen in the home? No Employment: Retired [employer] ADVANCED DIRECTIVES: Does the patient have an [...] by: Tamiko Mason RN documented in this encounterTrinity Health System [facility]10-04-2022 History of Present illness Narrative* [...] on ice. He was evaluated in the [facility]. As part of his work-up a CT [...] by: Alfredo Xavier MD cc: Daksha Turner ([facility]) [address] [place], [place] [id number] documented in this encounterTrinity Health System [facility]10-04-2022 Telephone encounter Note * Telephone Encounter - Noreen Morejon - 12/09/2021 9:28 AM EDT Patient unable to contact No voicemail to return call Invalid Number Letter sent CALI May [employer] [id number] [place] [address] [email or web address] Miscellaneous Notes* Telephone Encounter - Noreen Morejon - 12/09/2021 9:28 AM EDT Patient unable to contact No voicemail to return call Invalid Number Letter sent CALI May [facility] [address] [place] [address] [email or web address] documented in this [id number] Miscellaneous Notes* Telephone Encounter - Adriana Hodge [...] his Adriana Hodge MD documented in this encounterTrinity Health System [facility] Center09-19-2022 Miscellaneous Notes* Telephone Encounter - America Schwartz RN - 11/24/2021 12:23 PM EDTSummary: Requesting pain medication Patient is requesting patient medication for pain in bilateral legs, states that it is a 6/10 constant cramping. Informed patient that nurse will discuss with physician and return call. Patient verbalized understanding. America Schwartz RN, BSN, OCN documented in this encounterTrinity Health System [facility] City [facility] Center09-15-2022 [facility]09-15-2022 NoteC[facility]09-15-2022 History of Present illness Narrative* Marcelino [...] Intact, Site disposition Discontinued SIGNED BY: RT Cehlo(Damion) November 20, 2021 10:33 AM documented in this encounterTrinity Health System Twin City [facility] Center09-14-2022 NoteHNO ID: [id number] Author: Haylee Wilburn MD Service: ? Author Type: Physician Type: Progress Notes Filed: 11/19/2021 9:58 AM Note Text: [facility] Progress Note SERVICE DATE: November 19, [...] started treatment with cabo + nivo on [facility] 1820 Trial on 08/08/2021 at [facility]. He has baseline HTN and developed worsening HTN after starting treatment. His cabo was held on 08/18/2021, resumed on 09/11/2021. The Nivo was held on 09/11/21 due to pneumonitis, and prednisone 60 mg daily was started and tapered off within about one month. Due to insurance change, he was taken off the trial and referred to [facility] Oncology to resume the treatment. He was [...] is scheduled to have radical nephrectomy at [facility] soon after the repeat CT. STAGE: Cancer [...] surgery. Haylee Wilburn MD cc: Daksha Turner, [facility]09-14-2022 NoteHNO ID: [id number] Author: Haylee Wilburn MD Service: ? Author Type: Physician Type: Progress Notes Filed: 11/25/2021 3:53 PM Note Text: Note opened in [facility]09-14-2022 NoteHNO ID: [id number] Author: Bernarda Kee MA Service: ? Author Type: Senior Drafter Type: Progress Notes Filed: 11/19/2021 9:58 AM Note Text: This note was created using [employer]. Subjective Yefri Yanez is a 56 year [...] BMI 37.59 kg/m? Physical Exam Assessment and [facility]09-14-2022 History of Present illness Narrative* Haylee Wilburn MD - 11/19/2021 9:33 AM EDT Images from the original note were not included. [facility] Progress Note SERVICE DATE: November 19, [...] started treatment with cabo + nivo on [facility] 1820 Trial on 08/08/2021 at [facility]. He has baseline HTN and developed worsening HTN after starting treatment. His cabo was held on 08/18/2021, resumed on 09/11/2021. The Nivo was held on 09/11/21 due to pneumonitis, and prednisone 60 mg daily was started and tapered off within about one month. Due to insurance change, he was taken off the trial and referred to [facility] Oncology to resume the treatment. He was [...] is scheduled to have radical nephrectomy at [facility] soon after the repeat CT. STAGE: Cancer Staging Metastatic renal cell carcinoma (HCC) Staging form: Kidney, AJCC 8th Edition - Clinical: Stage IV (cT2a, cNX, cM1) - Signed by Haylee Wilubrn MD on 10/20/2021 PLAN: He will have [...] AM EDT This note was created using [employer]. Subjective Yefri Yanez is a 56 year [...] Exam Assessment and Plan documented in this encounterTrinity Health System [facility]09-01-2022 Miscellaneous Notes* Telephone Encounter - Tania Parekh RN - 11/06/2021 9:30 AM EDT Spoke with parts counter representative from [facility], she is asking that we reach out to patient to have them deliver his Cabometyx. She stated they have called him multiple times, yet he will not answer, and the one time he did answer she went over who she was and patient hung up on her.Tania Parekh, RN documented in this encounterTrinity Health System [facility] City [facility] Center08-22-2022 Miscellaneous Notes* Telephone Encounter - Lisa Christensen PA-C - 10/27/2021 3:14 PM EDT Images from the original note were not included. Lalo Acevedo MD You; [facility] Rn Resource Pool 1 18 minutes ago [...] you for your help, Lisa Christensen PA-C [facility] documented in this encounterTrinity Health System [facility] Center08-22-2022 History and physical note * [...] 366 QTC Calculation (Bazett) 440 Calculated R Ellsworth 68 Calculated T Ellsworth 72 Impression ATRIAL FIBRILLATION NONSPECIFIC T WAVE [...] prior LISA Recent Results (from the past 33180 hour(s)) ECHO Collection Time: 09/04/21 11:03 AM [...] * * * Final * * * [facility] 08/05/2021 + + DIAGNOSTIC FINDINGS + + [...] CAD (coronary artery disease) Assessment: Nonobstructive on [facility] 08/05/2021. METS: Climb a flight of stairs [...] received from Dr. Acevedo, see TE in [facility] on 10/27/2021. Called pt and informed him [...] Orders placed by surgeon/surgical service in [facility]. Planned Anesthetic: Per anesthesia choice Instructions Given to Patient: Instructions located in the after visit summary. Patient given verbal and written preop instructions and voices comprehension and compliance. SIGNATURE: Lisa Christensen PA-C PATIENT NAME: Yefri Yanez DATE: October 24, 2021 TIME: 11:08 AM documented in this encounterTrinity Health System [facility] City [facility] Center08-19-2022 Instructions* Patient Instructions* Lisa Christensen PA-C - 10/24/2021 11:20 AM EDT PATIENT PREOPERATIVE INSTRUCTIONS Adriana Hodge MD has scheduled you for your procedure at this surgery center: [facility] Scheduling Office: [phone] --[address] [place] [address]. Please read below carefully for your personalized [...] NOT stop warfarin without consulting with your service architect or prescribing physician. - Stop Vitamin E, [...] call the Wednesday before. Your surgeon s high school science tutor will tell you what time to call the office. - If you have not reached the departmental high school science tutor by 5 P.M., call [phone] after 5 P.M. the day before your surgery. Please be aware that emergency situations arise, which may delay or change your surgical time. If this happens, we will notify you as soon as possible and regret any inconvenience. If you already have an Advance Directive, please fax a copy to [phone] or email to for it to be [...] chart that day. documented in this encounterCleveland [id number] NoteCrystal Clinic Orthopedic Center08-16-2022 NoteC[facility]08-16-2022 NoteC[facility]08-15-2022 NoteHNO ID: [id number] Author: Haylee Wilburn MD Service: ? Author Type: Physician Type: Progress Notes Filed: 10/21/2021 9:38 AM Note Text: [facility] Oncology Consult Note SERVICE DATE: October [...] started treatment with cabo + nivo on [facility] 1820 on 08/08/2021. He has baseline HTN and developed worsening HTN after starting treatment. His cabo was held on 08/18/2021, resumed on 09/11/2021. The Nivo was held on 09/11/21 due to pneumonitis, and prednisone 60 mg daily was started and tapered off one week ago. Due to insurance change, he was taken off the trial and referred to [facility] Oncology to resume the treatment. He is [...] Respiratory: Negative. Cardiovascul (more content not included)...[facility]08-11-2022 Miscellaneous Notes* Telephone Encounter - Piper Fair - 10/16/2021 8:22 AM EDT Tayler from [facility] is requesting a referral for Dr. Haylee Wilburn, to have patient scheduled for Wednesday, 10/20. Patient has been identified by name and birthdate. Duration of symptoms: N/A Requesting response back: Call [phone] if needed. Piper Fair October 16, 2021 documented in this encounterTrinity Health System [facility]08-09-2022 Miscellaneous Notes* Telephone Encounter - Rahul Knight RN - 10/14/2021 5:09 PM EDT Pt called back to discuss his questions regarding insurance coverage for [facility]. Pt did not answer, sovoice message left with instructions to call back. Also attempted to call pt's , also with no answer. Voice message left for spouse as well. Fazal Knight RN, BSN documented in this encounterTrinity Health System [facility] Center08-09-2022 Miscellaneous Notes* Telephone Encounter - Lisa Stark - 10/14/2021 2:46 PM EDT Yefri Yanez('s) spouse is calling Kenneth Chester MD today regarding Patient Question Patient has been identified by name and birthdate. Would like to know why Yefri wasn't approved for research study Duration of symptoms: N/A Requesting response back: call at home [phone] (home) Lisa Stark October 14, 2021 documented in this encounterTrinity Health System [facility] City [facility] Center08-04-2022 NoteC[facility]08-04-2022 NoteC[facility]08-04-2022 Nurse Note* Ariadne Wood RN - 10/09/2021 10:22 AM EDT Additional intake questions: Has the patient had fever, nausea, vomiting, diarrhea, constipation, fatigue for > 1 week? Yes, fatigue Does the patient have a decreased appetite? No Does patient want to see a Substation Electrician Supervisor? No (yes to any of above refer patient to schedulers for dietitian appointment) ) Does patient have any new or increased numbness or tingling of extremities? No Is patient interested in fertility information? No Does patient need any prescription refills? No Does patient have an advanced directive in place? No, Patient referred to Resource Center documented in this encounterTrinity Health System [facility]08-04-2022 History of Present illness Narrative* Godfrey Ohara APRN.BEATRICE - 10/09/2021 9:45 AM EDT Images from the original note were not included. [facility] Progress Note Oncology Clinic Patient name: [...] Abs Lymph 1.00 - 4.00 k/uL 2.33 Winkler% % 4.8 Abs Winkler <0.87 k/uL 0.35 Eosin% % 0.4 Abs [...] Started treatment with cabo + nivo on [facility] 0 on 08/08/2021. He has baseline HTN [...] out of network to receive care at [facility] - Patient is currently on warfarin for his atrial fibrillation, which is contraindicated per the clinical trial - Patient withdrew consent from [facility] 1819 and all follow up related activities [...] which included preparing to see the patient, [id number] patient care, completing clinical documentation, obtaining and/or [...] Oncology Advanced Practice Provider documented in this encounterTrinity Health System [facility]08-04-2022 History of Present illness Narrative* Rahul Knight RN - 10/09/2021 9:20 AM EDT IRB#: [id number], [facility]# [facility] 1820, Cyto-KIK; TRIAL (CYTO reductive surgery in [...] Anxiety r/t procedure 07/15/2021 08/06/21 Potassium Chloride* ([id number]) 20 MEQ PACKET Active 20 MEQ PO [...] Fazal Knight RN, BSN documented in this encounterTrinity Health System [facility] Center07-25-2022 Miscellaneous Notes* Telephone Encounter - Sheela Chisholm RN - 09/29/2021 2:05 PM EDT Called patient for follow up from recent hospital discharge but no answer, message left on voicemail including resource nurse phone number. documented in this encounterTrinity Health System [facility] Center07-25-2022 NoteC[facility]07-25-2022 History of Present illness Narrative* Safia Carr [facility] - 09/29/2021 7:19 AM EDT TRANSITION CARE [...] Nephro for plan on Prednisone taper. Called [facility] pharmacy and ensured that Rx for [...] take his insurance card. Pt to try [facility] instead of [facility]. Patient Workup: HF medication classes present on [...] oz) Patient was sent a message via ZEB including the link to the [facility] Heart Failure education video: Yes Initial contact with patient post discharge, spoke to patient and spouse, Miya,. Patient identified by name and . Summary: -Pt discharged from [facility] on 09/26/21. -Follow up appointment on 10/20/21. -Medication review done Partial medication review completed - per patient preference -Admitted for acute systolic heart failure Patient was contacted by telephone, identified for pharmacist care from discharge call list, and gave consent to manage medications related to transitional care management pursuant to the consult agreement with the [facility]. Patient Concerns: Review and discussion of medications [...] subcutaneously q 12 HR. Re-initiated, Sent to [facility], Pt has filled and is taking as prescribed. PharmD called [facility] and verified that pt filled Rx [...] tablets by mouth once daily. Sent to [facility], Pt has filled and is taking as prescribed. Pt's spouse will call Coke Inspector to determine the plan on this taper [...] tablets by mouth once daily. Sent to [facility], Pt has filled and is taking [...] (40mg) by mouth once daily. Sent to [facility], Pt has filled and is taking as prescribed. PharmD called [facility] and verified that Torsemide Rx was filled as generic (pharmacy filled as generic) warfarin (COUMADIN) 5 mg tablet Take 1 tablet by mouth once daily. Sent to [facility], Pt has filled and is taking as prescribed. INR Date Value Ref Range Status 09/26/2021 1.3 0.9 - 1.3 Final Comment: Vitamin K Antagonist (VKA) Therapeutic Range: INR 2 to 3 (Target INR of 2.5) Note: For patients treated with VKA drugs, such as warfarin, the [employer] 2012 Guideline recommends [...] Chest 2012, 141:7S-47S Caitie RA, et al. [facility] 2017, 70: 252-289 Pt had appt with PCP to check INR on 09/29/21 (INR was 1.9) and will have f/u INR on 10/03/21 with PCP. Pt's spouse states that new dose is Warfarin 6mg daily. Preferred pharmacy: [email or web address][id number] [place] [address] - [address] [facility] - [phone] [facility] [address] [address] [facility] [phone] [facility] [address] [facility] [address] [facility][id number] [place] [address] [address] [facility] - [phone] [place] [address] [address] [facility] [address] Estimated Creatinine Clearance: 104.4 mL/min (based on [...] [facility]ULL[facility] MA[facility] CA 1 Mn CA Bldg [phone] 10/09/2021 9:45 AM GODFREY CLAYTON Mn CA Bldg [phone] 10/09/2021 9:45 AM GODFREY OHARA Mn CA Bldg [phone] 10/09/2021 10:15 AM CHAIR 8 /MELANOMA/SARCOMA Mn CA Bldg [phone] 10/20/2021 11:30 AM LISA HANSEN Mn J Bldg [phone] 10/23/2021 8:40 AM MRI 6 RADIO MAIN Q (I-STAT/1.5T/3T) Mn Q Bldg [phone] 10/23/2021 9:[address] PREP MAIN CA Mn CA Bldg [phone] 10/23/2021 10:[address] MAIN CA Mn CA Bldg [phone] 10/23/2021 11:30 AM LAB [facility] CULL[place] MAIN CA 1 Mn CA Bldg [phone] 10/23/2021 1:30 PM KENNETH CHESTER Mn CA Bldg [phone] 10/23/2021 1:30 PM GODFREY CLAYTON Mn CA Bldg [phone] 10/27/2021 11:30 AM PACC MAIN 2 Mn A Bldg [phone] 10/27/2021 12:30 PM ADMIT INTERVIEW A12 PSSC A Bldg 10/27/2021 1:00 PM LAB A15 MAIN Mn A [facility] [phone] 10/27/2021 1:30 PM EKG17 MAIN Mn A [facility] [phone] 11/01/2021 11:00 AM LAB COVID [facility] [phone] Interventions Made: Patient education/Medication counseling, Adherence counseling and Medication access issue resolved Pharmacist Recommendations Made Lab request/Therapeutic drug monitoring Care Coordination: None at this time Time spent on patient: 60-75 minutes Safia Carr RPh September 29, 2021 7:19 AM documented in this encounterTrinity Health System [facility] Center07-22-2022 NoteC[facility]07-22-2022 NoteC[facility]07-21-2022 NoteC[facility]07-20-2022 NoteC[facility]07-19-2022 Note [facility]07-18-2022 NoteC[facility]07-18-2022 History of Present illness Narrative* Riccardo Hatfield PA-C - 09/22/2021 12:00 PM EDT Images from the original note were not included. [facility] Department of Cardiovascular Medicine SECTION OF CLINICAL CARDIOLOGY OUTPATIENT VISIT DATE September 22, 2021 OUTPATIENT VISIT TYPE ESTABLISHED PRIMARY CARE PHYSICIAN: Daksha Turner ([facility]) [address] [place] [id number] REFERRING PHYSICIAN: Angela Khan [address] [facility] [address] CHIEF COMPLAINT: Established Pt Hospital Follow Up HISTORY OF PRESENT ILLNESS: Mr. Yanez is a 56 year old male who presents today for a cardiovascular medicine follow-up visit. Pt is an established pt of Dr. Acevedo Pt has a past medical history of: 1. 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 No CT evidence of pulmonary embolism. 2. Little change in CT appearance of the chest since the exam dated 08/17/2021. Again demonstrated is an expansile soft tissue mass of the right anterolateral chest wall consistent with osseous metastasis. Horticulture Superintendent: PSCAbdirahman Transcribe Date/Time: Sep 02 2021 4:28P [...] with more than 50% of the total osnd-sf-pgfs time of the visit in counseling / coordination of care. CONTACT INFORMATION: Riccardo Hatfield PA-C September 22, 2021 documented in this encounterTrinity Health System [facility] City [facility] Center07-15-2022 Miscellaneous Notes* Telephone Encounter - [...] Pt verbalized understanding. Sent a follow up ZEB message to the pt.Also reached out to Dr. Chester to inform him of new symptoms, recommendations made to pt, and to inquire whether further action is needed. Will call pt back with any new instructions from Dr. Chester. Fazal Knight RN, BSN documented in this encounterTrinity Health System [facility] Center07-12-2022 Miscellaneous Notes* Telephone Encounter - [...] symptoms. [place] Sharma, RN documented in this encounterTrinity Health System [facility] City [facility] Center07-12-2022 Miscellaneous Notes* Telephone Encounter - Rahul Knight RN - 09/16/2021 9:45 AM EDT IRB#: [id number], [facility]# [facility] 1820, Cyto-KIK; TRIAL (CYTO reductive surgery in [...] Fazal Knight RN, BSN documented in this encounterTrinity Health System [facility] City [facility] Center07-07-2022 [facility]07-07-2022 NoteC[facility]07-07-2022 History of Present illness Narrative* Kenneth Chester MD - 09/11/2021 2:03 PM EDT Images from the original note were not included. [facility] Progress Note Oncology Clinic Patient name: Yefri Yanez : 1965 Date of Service: September 11, 2021 Note copied from August 19, 2021 but boucher elements reviewed, confirmed, and/or updated by me (Kenneth Chester MD) on September 11, 2021. SUB[facility]IVE [facility]: Started cabo and nivo [...] Abs Lymph 1.00 - 4.00 k/uL 1.12 Winkler% % 8.1 Abs Winkler <0.87 k/uL 0.53 Eosin% % 0.5 Abs [...] Started treatment with cabo + nivo on [facility] 1820 on 08/08/2021. He has baseline HTN [...] note. Kenneth Chester MD documented in this encounterTrinity Health System [facility] City [facility] Center07-07-2022 Nurse Note* Ariadne Wood RN - 09/11/2021 1:29 PM EDT Additional intake questions: Has the patient had fever, nausea, vomiting, diarrhea, constipation, fatigue for > 1 week? Yes, fatigue and SOB Does the patient have a decreased appetite? No Does patient want to see a Substation Electrician Supervisor? No (yes to any of above refer patient to schedulers for dietitian appointment) ) Does patient have any new or increased numbness or tingling of extremities? No Is patient interested in fertility information? No Does patient need any prescription refills? No Does patient have an advanced directive in place? No, Patient referred to Resource Center documented in this encounterTrinity Health System [facility]07-07-2022 History of Present illness Narrative* Godfrey Clayton RN - 09/11/2021 1:17 PM EDT IRB#: [id number], [facility]# [facility] 1820, Cyto-KIK; TRIAL (CYTO reductive surgery in [...] chloride (KLOR-CON) 20 mEq packet Potassium Chloride* ([id number]) 20 MEQ PACKET Active 20 MEQ PO [...] information Godfrey Clayton RN documented in this encounterTrinity Health System [facility] City Medical Center07-01-2022 Miscellaneous Notes* Telephone Encounter - Marysol Lane RN - 09/05/2021 4:07 PM EDT Called Yefri for more information regarding message received. Call back number given. * Telephone Encounter - Rakel Monge - 09/05/2021 2:16 PM EDT Yefri Yanez is calling Kenneth Chester MD today regarding Fine Grader - Other States that when patient was in the hospital Dr Khan prescribed Lobenos and states that is very costly. Asking for a generic or something different that is affordable. Patient has been identified by name and birthdate. Duration of symptoms: N/A Requesting response back: call at home [phone] (home) [phone] (cell) Rakel Monge September 05, 2021 documented in this encounterTrinity Health System [facility] City [facility] Center06-29-2022 NoteC[facility]06-29-2022 NoteC[facility]06-28-2022 NoteC[facility]06-28-2022 NoteC[facility]06-28-2022 Note [facility]06-28-2022 NoteC[facility]06-28-2022 History of Present illness Narrative* Godfrey Clayton RN - 09/02/2021 4:55 PM EDT IRB#: [id number], [facility]; TRIAL (CYTO reductive surgery in Kidney cancer plus Immunotherapy (nivolumab) and targeted Kinase inhibition (cabozantinib) [facility]. Patient endorses [...] Outcome:ongoing Godfrey Clayton RN documented in this encounterTrinity Health System [facility] City [facility] Center06-28-2022 Nurse Note* Warren Garvin LPN - 09/02/2021 4:41 PM EDT [facility] Emergency Response Team Date of the Event: September 02, 2021 Time of the Event:1640 [address] Floor / Area: [address] Reason/Chief Complaint for Emergency Call (Check all that apply): Respiratory: New onset difficulty breathing History of Events Prior to DANIEL Activation and any treatment administered prior to DANIEL Team arrival? PT presented to [facility] clinic with SOB for last week. [...] No Does patient want to see a Substation Electrician Supervisor? No (yes to any of above refer patient to schedulers for dietitian appointment) ) Does patient have any new or increased numbness or tingling of extremities? No Is patient interested in fertility information? No Does patient need any prescription refills? No Does patient have an advanced directive in place? No, Patient refused referral to Social Work or Resource Center documented in this encounterTrinity Health System [facility]06-28-2022 NoteC[facility]06-28-2022 NoteC[facility]06-28-2022 History of Present illness Narrative* Sybil [...] 2021 TIME: 3:24 PM documented in this encounterTrinity Health System [facility] City [facility] Center06-28-2022 History of Present illness Narrative* Daksha Melo PA-C - 09/02/2021 2:05 PM EDT [facility] Rapid Access [facility] (TRA) REQUESTING PROVIDER: [...] No rash. LABS / TESTING while in [facility] clinic: Component Latest Ref Rng & [...] Abs Lymph 1.00 - 4.00 k/uL 1.42 Winkler% % 6.4 Abs Winkler <0.87 k/uL 0.42 Eosin% % 0.3 Abs [...] 02, 2021 2:05 PM documented in this encounterTrinity Health System [facility] Center06-28-2022 History of Present illness Narrative* [...] 02, 2021 1:56 PM documented in this encounterTrinity Health System [facility] Center06-28-2022 NoteC[facility]06-27-2022 Miscellaneous Notes* Telephone Encounter - Adriana [...] the anaestheic including but not limited to WA, CVA, DVT, and PE, and the risks [...] proceed. Adriana Hodge MD documented in this encounterTrinity Health System [facility] City [facility] Center06-22-2022 NoteC[facility]06-14-2022 NoteC[facility]06-14-2022 History of Present illness Narrative* Godfrey Clayton RN - 08/19/2021 2:17 PM EDT IRB#: [id number], [facility]# [facility] 1820, Cyto-KIK; TRIAL (CYTO reductive surgery in [...] chloride (KLOR-CON) 20 mEq packet Potassium Chloride* ([id number]) 20 MEQ PACKET Active 20 MEQ PO [...] information Godfrey Clayton RN documented in this encounterTrinity Health System [facility] City [facility] Center06-14-2022 NoteC[facility]06-14-2022 NoteC[facility]06-14-2022 Nurse Note* Ariadne Wood RN - 08/19/2021 11:33 AM EDT Reviewed and confirmed with patient that there were no changes in the the nursing assessment and vitals that were completed on August 19, 2021 during previous provider appointment. Ariadne Wood RN documented in this encounterTrinity Health System [facility] City [facility] Center06-14-2022 History of Present illness Narrative* Godfrey Ohara APRN.BELLOWS FILLER - 08/19/2021 11:30 AM EDT Images from the original note were not included. [facility] Progress Note Oncology Clinic Patient name: Yefri Yanez : 1965 Date of Service: August 19, 2021 PCP: Jillian Maurer DO Referring Provider: Adriana Hodge MD. SUBJECTIVE CHIEF COMPLAINT: [facility] CURRENT THERAPY: Started cabo and nivo on [...] Patient presents today for C1D15 visit of [facility] 1820. Since last visit his BP has been elevated, his cabo was stopped on 08/18/21 and he saw cardiology prior to his oncology appointment today. 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 Alcohol: Occasional Tobacco: Active cigar smoker MEDICATIONS: [...] Abs Lymph 1.00 - 4.00 k/uL 1.58 Winkler% % 8.1 Abs Winkler <0.87 k/uL 0.49 Eosin% % 2.5 Abs [...] which included preparing to see the patient, [id number] patient care, completing clinical documentation, obtaining and/or [...] making during today's encounter, August 19, 2021) Gdofrey Ohara APRN.BEATRICE Research SCOTT documented in this encounterTrinity Health System [facility] Center06-14-2022 History of Present illness Narrative* Lalo Acevedo MD - 08/19/2021 10:14 AM EDT Images from the original note were not included. [facility] Department of Cardiovascular Medicine SECTION OF CLINICAL CARDIOLOGY OUTPATIENT VISIT DATE August 19, 2021 OUTPATIENT VISIT TYPE ESTABLISHED PRIMARY CARE PHYSICIAN: Daksha Turner (Sarah) [address] [place] [address] REFERRING PHYSICIAN: Lalo Acevedo [address] [facility] [address] CHIEF COMPLAINT: No chief complaint on file. HISTORY OF PRESENT ILLNESS: Mr. Yanez is a 56 year old male who presents today for a cardiovascular medicine follow-up visit. Patient was last time seen in the clinic on July 31, 2021. Patient has a history of clear-cell renal carcinoma with metastases to the lung.Currently patient is enrolled in clinical trial, see [facility] 1819, with Mati [planning C1 D1 on [...] fellow represents my interpretation of the study. Horticulture Superintendent: DANITZA Transcribe Date/Time: Aug 17 2021 7:12P [...] INFORMATION: Lalo Acevedo M.D, PhD, FRCPC, FACC Officer Captain at [facility] Associate Disability Manager Internal Medicine Residency Disability Managerrating clerk Education Internal Medicine Residency Disability Manager of Consult Service Disability Manager for Elective Students/Residents at [facility] Cardio-Oncology [facility] Department of Cardiovascular Medicine [facility] Desk [address] [place] [address] Office Office Appointments: [phone] This medical note has been dictated using voice recognition system. Grammatical and/or syntax errors may be present and therefore the note should be interpreted accordingly. Should you have any questions and/or concerns, please do not hesitate to contact my office. documented in this encounterTrinity Health System [facility] Center06-13-2022 Miscellaneous Notes* Telephone Encounter - Radha Ceballos RN - 08/18/2021 2:51 PM EDT Good Afternoon Mr. Yanez, Thank you for sending us in your blood pressure readings. Dr. Acevedo will address these readings tomorrow at your appointment. Looking forward to seeing you then! I hope you have a wonderful day! JOHN Garcia documented in this encounterTrinity Health System [facility] Center06-13-2022 Miscellaneous Notes* Telephone Encounter - Godfrey Clayton RN - 08/18/2021 10:25 AM EDT IRB#: [id number][facility] 1820, Cyto-KIK; TRIAL (CYTO reductive surgery in [...] Outcome:Resolved Godfrey Clayton RN documented in this encounterTrinity Health System [facility] City [facility] Center06-13-2022 Miscellaneous Notes* Telephone Encounter - Godfrey Ohara APRN.CNP - 08/18/2021 9:43 AM EDT This encounter was opened in error. @[email or web address]@ documented in this encounterTrinity Health System [facility] Center06-12-2022 NoteC[facility]06-12-2022 NoteC[facility]06-08-2022 Miscellaneous Notes * Telephone Encounter - Godfrey Clayton RN - 08/13/2021 2:55 PM EDT IRB#: [id number][facility] 0372, Cyto-KIK; TRIAL (CYTO reductive surgery in Kidney cancer plus Immunotherapy (nivolumab) and targeted Kinase inhibition (cabozantinib) Called patient to review recent blood pressure readings. Patient stated his blood pressure yesterday and today have been between 130s-140s/80s. Instructed patient to still follow up with his service architect with previous readings. Patient states of feeling well with no symptoms. Instructed patient to call with any new or worsening symptoms. Patient verbalized understanding. Godfrey Clayton RN documented in this encounterTrinity Health [facility]06-07-2022 Miscellaneous Notes* Telephone Encounter - Godfrey Clayton RN - 08/12/2021 2:40 PM EDT IRB#: [id number], [facility]# [facility] 1820, Cyto-KIK; TRIAL (CYTO reductive surgery in Kidney cancer plus Immunotherapy (nivolumab) and targeted Kinase inhibition (cabozantinib) Patient called to inform nurse of recent blood pressure readings. Patient reported that his blood pressure has been running between 140-150s/100s since last 08/09/2021. After consulting , instructed patient to follow up with his service architect to adjust blood pressure medications. This nurse updated service architect, Dr. Acevedo. Patient denied having any chest pain, shortness of breath, dizziness, or heart palpations. Instructed patient to be evaluated by local ER if blood pressure continues to stay elevated or becomes symptomatic. Instructed patient to call for any new or worsening symptoms. Patient verbalized understanding. Godfrey Clayton RN documented in this encounterTrinity Health System [facility] Center06-07-2022 Miscellaneous Notes* Telephone Encounter - [...] EDT August 12, 2021 Patient Contact Number: [phone] Patient last seen within the last year: [...] days. Yes Wojciech Menendez documented in this encounterTrinity Health System [facility] Center06-06-2022 Miscellaneous Notes* Telephone Encounter - Hermila Ruiz RN - 08/11/2021 12:32 PM EDT IRB#: [id number], [facility]# [facility] 1820, Cyto-KIK; TRIAL (CYTO reductive surgery in Kidney cancer plus Immunotherapy (nivolumab) and targeted Kinase inhibition (cabozantinib) Called pt again to follow up. No answer. Left VM with contact info. Hermila Ruiz RN documented in this encounterTrinity Health System [facility] Center06-06-2022 Miscellaneous Notes* Telephone Encounter - Hermila Ruiz RN - 08/11/2021 10:09 AM EDT IRB#: [id number], [facility]# [facility] 1820, Cyto-KIK; TRIAL (CYTO reductive surgery in Kidney cancer plus Immunotherapy (nivolumab) and targeted Kinase inhibition (cabozantinib) Cycle: 1 Week: 1 Phase: 2 Cohort: 2 Called pt to follow up on start of treatment with clinical trial. No answer. Left VM with contact info. Hermila Ruiz RN documented in this encounterTrinity Health System [facility] Center06-03-2022 [facility]06-03-2022 NoteC[facility]06-03-2022 [facility]Cle[facility]06-03-2022 History of Present illness Narrative* Godfrey Ohara APRN.BELLOWS FILLER - 08/08/2021 9:45 AM EDT Images from the original note were not included. [facility] Progress Note Oncology Clinic Patient name: Yefri Yanez : 1965 Date of Service: August 08, 2021 PCP: Jillian Maurer DO Referring Provider: Adriana Hodge MD. SUBJECTIVE CHIEF COMPLAINT: [facility] HPI: This is a 56 year old [...] Patient presents today for C1D1 visit of [facility] 1820 with cabo and nivo. 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 Alcohol: Occasional Tobacco: Active cigar smoker MEDICATIONS: [...] Abs Lymph 1.00 - 4.00 k/uL 1.61 Winkler% % 6.6 Abs Winkler <0.87 k/uL 0.40 Eosin% % 0.7 Abs [...] start treatment with cabo + nivo on [facility] 1820 on 07/24/2021 - Start C1D1 of cabo + nivo today (08/08/2021) per [facility] 1820 - RTC per protocol HTN and [...] which included preparing to see the patient, [id number] patient care, completing clinical documentation, obtaining and/or [...] Ohara APRN.BEATRICE Research SCOTT documented in this encounterTrinity Health System [facility]06-03-2022 History of Present illness Narrative* Godfrey Clayton RN - 08/08/2021 9:45 AM EDT IRB#: [id number], [facility], Cyto-KIK; TRIAL (CYTO reductive surgery [...] chloride (KLOR-CON) 20 mEq packet Potassium Chloride* ([id number]) 20 MEQ PACKET Active 20 MEQ PO [...] Navigator Godfrey Clayton RN documented in this encounterTrinity Health System [facility] Center06-03-2022 Nurse Note* Ariadne Wood RN - 08/08/2021 9:20 AM EDT Additional intake questions: Has the patient had fever, nausea, vomiting, diarrhea, constipation, fatigue for > 1 week? No Does the patient have a decreased appetite? No Does patient want to see a Substation Electrician Supervisor? No (yes to any of above refer patient to schedulers for dietitian appointment) ) Does patient have any new or increased numbness or tingling of extremities? No Is patient interested in fertility information? No Does patient need any prescription refills? No Does patient have an advanced directive in place? No, Patient referred to Resource Center documented in this encounterTrinity Health System [facility]06-01-2022 NoteC[facility]06-01-2022 History of Present illness Narrative* Godfrey Ohara APRN.CNP - 08/06/2021 3:37 PM EDT RECIST TUMOR MEASUREMENTS IRB #: [id number] Image Modality: CT Image Date: CT Chest from 07/21/2021. CT A/P from 08/06/2021 Date of Baseline Scan: CT Chest from 07/21/2021. CT A/P from 08/06/2021 Date of Comparison Scan: NA Research Nurse/Pager: Godfrey Ohara APRN.BELLOWS FILLER [phone] Baseline Measurement Target Lesion Site Measurements: Baseline [...] reviewed and approved by Dr. Kenneth Ohara APRN.BELLOWS FILLER documented in this encounterTrinity Health System [facility]06-01-2022 NoteC[facility]06-01-2022 NoteC[facility]06-01-2022 NoteC[facility]06-01-2022 NoteC[facility]06-01-2022 Note [facility]06-01-2022 History of Present illness Narrative* Godfrey Ohara APRN.CNP - 08/06/2021 9:45 AM EDT IRB#: [id number], [facility]# [facility] 1820, Cyto-KIK; TRIAL (CYTO reductive surgery in Kidney cancer plus Immunotherapy (nivolumab) and targeted Kinase inhibition (cabozantinib) Phase: 2 Cohort: 2 Pt presents for Screening Visit of IRB# [id number] . Informed Consent signed on 07/15/2021, prior to anystudy related procedures being performed that are not SOC. PE completed by Godfrey Ohara APRN.BELLOWS FILLER. Was PE completed by a Fellow No [...] chloride (KLOR-CON) 20 mEq packet Potassium Chloride* ([id number]) 20 MEQ PACKET Active 20 MEQ PO [...] RTC on 08/07/2021 for Day 1 of [facility] 1820 Study. Patient expresses understanding to call with any questions or concerns in the interim and understanding of all instructions provided. Patient confirmed to have contact information for Research Nurse and Dr. Zhao, along with the 24 hour On- Call number for the On-Call Oncology Fellow ([phone]). Godfrey Ohara APRN.CNP * Godfrey Ohara APRN.CNP - 08/06/2021 9:45 AM EDT Images from the original note were not included. [facility] Progress Note Oncology Clinic Patient name: Yefri CASTILLON: [id number] : 1965 Date of Service: August 06, 2021 PCP: Jillian Maurer DO Referring Provider: Adriana Hodge MD. SUBJECTIVE CHIEF COMPLAINT: [facility] HPI: This is a 56 year old [...] presents today for repeat screening visit of [facility] 1819 with cabo and nivo. 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 He presents today for repeat screening visit [facility] . - RTC on C1D1 [...] which included preparing to see the patient, [id number]-[id number] patient care, completing clinical documentation, obtaining and/or [...] Ohara APRN.BEATRICE Research SCOTT documented in this encounterTrinity Health System [facility]06-01-2022 History of Present illness Narrative* Godfrey Clayotn RN - 08/06/2021 9:35 AM EDT IRB#: [id number], [facility], Cyto-KIK; TRIAL (CYTO reductive surgery [...] note. Godfrey Clayton RN documented in this encounterTrinity Health System [facility] Center05-29-2022 Miscellaneous Notes* Telephone Encounter - [...] In Department of CARDIOLOGY. documented in this encounterTrinity Health System [facility] Center05-26-2022 NoteC[facility]05-26-2022 History of Present illness Narrative* Lalo Acevedo MD - 07/31/2021 1:20 PM EDT Images from the original note were not included. [facility] Department of Cardiovascular Medicine SECTION OF CLINICAL CARDIOLOGY OUTPATIENT VISIT DATE July 31, 2021 OUTPATIENT VISIT TYPE ESTABLISHED PRIMARY CARE PHYSICIAN: Daksha Turner ([facility]) [address] [place] [address] REFERRING PHYSICIAN: Lalo Acevedo [address] [facility] [address] CHIEF COMPLAINT: No chief complaint on file. HISTORY OF PRESENT ILLNESS: Mr. Yanez is a 56 year old male who presents today for a cardiovascular medicine follow-up visit. The first time he spoke with the patient was back on July 22, 2021. Patient has oncological and pathologically confirmed clear-cell renal carcinoma. Currently patient is enrolled in clinical trial, see [facility] 182, with Mati [planning C1 D1 [...] that he is at least operating at [employer] 2 in terms of functional [...] short axis) * Boucher Images stored in Nubity Chest: * Lesion a - Bone, 9.4 cm x 5.7 cm mass in the anterolateral right chest wall arising from the right sixth rib, larger since the prior chest CT from 06/19/2021, (Series 4, Image 102) NON-TARGET LESIONS: No Horticulture Superintendent: PSCB Transcribe Date/Time: Jul 21 2021 10:55A [...] forward. At this time he is at [employer] class II in functional status [...] INFORMATION: Lalo Acevedo M.D, PhD, FRCPC, FACC Officer Captain at [facility] Associate Disability Manager Internal Medicine Residency Disability Managerrating clerk Education Internal Medicine Residency Disability Manager of Consult Service Cardio-Oncology Center [facility]ia Department of Cardiovascular Medicine [facility] Desk [place] [address] Office Office Appointments: [phone] This medical note has been dictated using voice recognition system. Grammatical and/or syntax errors may be present and therefore the note should be interpreted accordingly. Should you have any questions and/or concerns, please do not hesitate to contact my office. documented in this encounterTrinity Health System [facility]05-25-2022 Miscellaneous Notes* Telephone Encounter - [...] In Department of CARDIOLOGY. documented in this encounterTrinity Health System [facility]05-24-2022 Miscellaneous Notes* Telephone Encounter - Godfrey Clayton RN - 07/29/2021 4:39 PM EDT IRB#: [id number], [facility]# [facility] 1820, Cyto-KIK; TRIAL (CYTO reductive surgery in [...] understanding. Godfrey Clayton RN documented in this encounterTrinity Health System [facility]05-20-2022 Miscellaneous Notes* Telephone Encounter - Godfrey Clayton RN - 07/25/2021 2:58 PM EDT IRB#: [id number], [facility]# [facility] 1820, Cyto-KIK; TRIAL (CYTO reductive surgery in [...] understanding. Godfrey Clayton RN documented in this encounterTrinity Health System [facility] Center05-20-2022 NoteC[facility]05-20-2022 History of Present illness Narrative* [facility]ul [facility] - 07/25/2021 10:36 AM EDTSummary: RECIST 1.1 Abstract for Addendum RESEARCH IRB #: [id number] TUMOR METRICS: RECIST 1.1 Baseline Measurement Research Nurse/Pager: America Clayton [phone] Date of Baseline Scan: 06/27/2021 Date of Comparison Scan: NA Addendum Please see Abstract in EPIC Dated: NA Rahul Sabrina [id number] documented in this encounterTrinity Health System [facility]05-19-2022 Instructions* Patient Instructions* Godfrey Ohara APRN.CNP - 07/24/2021 3:33 PM EDT Please schedule as a first time treatment visit type. documented in this encounterTrinity Health System [facility]05-19-2022 Miscellaneous Notes* Telephone Encounter - Godfrey Ohara APRN.CNP - 07/24/2021 3:29 PM EDT Called and spoke with patient. Nivolumab has been approved. Awaiting approval and delivery of cabo per SOC. Will schedule him to see myself on 08/01/2021 for C1D1 of cabo and nivo. Godfrey Ohara APRN.CNP Research SCOTT documented in this encounterTrinity Health System [facility] Center05-19-2022 [facility]05-19-2022 [facility]05-19-2022 History of Present illness Narrative* Godfrey Ohara APRN.CNP - 07/24/2021 9:56 AM EDT Images from the original note were not included. [facility] Progress Note Oncology Clinic Patient name: Yefri Yanez : 1965 Date of Service: July 24, 2021 PCP: Jillian Maurer DO Referring Provider: Adriana Hodge MD. SUBJECTIVE CHIEF COMPLAINT: [facility] HPI: This is a 56 year old [...] HISTORY: Patient presents today for C1D1 of [facility] 1819 with cabo and nivo. 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 However, [...] which included preparing to see the patient, [id number]-[id number] patient care, completing clinical documentation, obtaining and/or [...] Ohara APRN.BEATRICE Research SCOTT documented in this encounterTrinity Health System [facility]05-19-2022 History of Present illness Narrative* Godfrey Clayton RN - 07/24/2021 9:45 AM EDT IRB#: [id number], [facility] 1820, Cyto-KIK; TRIAL (CYTO reductive surgery in [...] chloride (KLOR-CON) 20 mEq packet Potassium Chloride* ([id number]) 20 MEQ PACKET Active 20 MEQ PO [...] Navigator Godfrey Clayton RN documented in this encounterTrinity Health System [facility]05-18-2022 Miscellaneous Notes* Telephone Encounter - [...] understanding. Godfrey Clayton RN documented in this encounterTrinity Health System [facility]05-17-2022 [facility]05-17-2022 History of Present illness Narrative* Lalo Acevedo MD - 07/22/2021 1:51 PM EDT [facility] Department of Cardiovascular Medicine TELEPHONE VISIT PROGRESS [...] patient is enrolling in a clinical trial, [facility] 1820, with lucrecia (planning C1D1 on 07/24/21). [...] minutes Lalo Acevedo MD documented in this encounterTrinity Health System [facility]05-16-2022 Miscellaneous Notes* Telephone Encounter - [...] information for future reference. documented in this encounterTrinity Health System [facility]05-16-2022 [facility]05-16-2022 NoteC[facility]05-16-2022 [facility]05-16-2022 History of Present illness Narrative* Elba Stewart, [...] 2021 TIME: 9:09 AM documented in this encounterTrinity Health [facility]05-16-2022 [facility]05-16-2022 History of Present illness Narrative* [...] 2021 TIME: 9:05 AM documented in this encounterTrinity Health [facility]05-16-2022 History of Present illness Narrative* [...] INDEX Godfrey Clayton RN documented in this encounterTrinity Health [facility]05-13-2022 [facility]05-13-2022 History of Present illness Narrative* Godfrey Ohara APRN.CNP - 07/18/2021 12:46 PM EDT IRB#: [id number], [facility] Phase: II Cohort: 2 Encounter [...] Cardiovascular disorders including: Congestive heart failure (CHF): [place] [employer] (NYHA) Class III (moderate) or Class IV (severe) at the time of screening. Patient denied on 07/15/2021. Not found on examination by KEYUR Mann.BELLOWS FILLER. Concurrent uncontrolled hypertension defined as sustained BP [...] on 07/15/2021 24. 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 No metastases [...] chloride (KLOR-CON) 20 mEq packet Potassium Chloride* ([id number]) 20 MEQ PACKET Active 20 MEQ PO [...] RTC on 07/24/2021 for Day 1 of [facility] 1820 Study. Godfrey Ohara APRN.CNP documented in this encounterTr[facility]22 [facility]-2022 [facility]-2022 [facility]-09-2022 Note [facility]-2022 History of Present illness Narrative* Rahul [...] as discussed with Dr. Kenneth Chester MD [place]-- . All study related questions have been [...] patient today for RN consent visit for [facility] 1820. Wrote for Ativan 1 mg as needed prior to MRI Kidney and MRI brain. Godfrey Ohara APRN.BEATRICE Research SCOTT documented in this encounterTr[facility]05-09-2022 Nurse Note* Ariadne Wood RN - 07/14/2021 2:41 PM EDT Additional intake questions: Has the patient had fever, nausea, vomiting, diarrhea, constipation, fatigue for > 1 week? Yes, fatigue Does the patient have a decreased appetite? No Does patient want to see a Substation Electrician Supervisor? No (yes to any of above refer patient to schedulers for dietitian appointment) ) Does patient have any new or increased numbness or tingling of extremities? No Is patient interested in fertility information? No Does patient need any prescription refills? No Does patient have an advanced directive in place? No, Patient referred to [facility] documented in this encounterTr[facility]05-06-2022 Miscellaneous Notes* Telephone Encounter - [...] understanding. Godfrey Clayton RN documented in this encounterTr[facility]05-06-2022 Miscellaneous Notes* Telephone Encounter - [...] understanding. Godfrey Clayton RN documented in this encounterTrinity [facility]05-03-2022 [facility]05-03-2022 History of Present illness Narrative* Godfrey Clayton RN - 07/08/2021 3:51 PM EDT Informed Consent Presentation IRB# [id number] Title: [facility] 1820, Cyto-KIK; TRIAL (CYTO reductive surgery in Kidney cancer plus Immunotherapy (nivolumab) and targeted Kinase inhibition (cabozantinib) Consent expiration date 01/10/2022 Spoke with patient at the request of Dr. Kenneth Chester MD [place]-- . Treatment plan, including all testing, potential [...] 1500 Godfrey Clayton RN documented in this encounterTrinity [facility]05-02-2022 Miscellaneous Notes* Telephone Encounter - [...] understanding. 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 Kenneth Chester MD MA Associate Staff [facility] July 02, 2021 CC: Adriana Hodge MD documented in this encounterTrinity Health [facility]04-27-2022 Nurse Note* Ariadne Wood RN - 07/02/2021 11:52 AM EDT Additional intake questions: Has the patient had fever, nausea, vomiting, diarrhea, constipation, fatigue for > 1 week? No Does the patient have a decreased appetite? No Does patient want to see a Substation Electrician Supervisor? No (yes to any of above refer patient to schedulers for dietitian appointment) ) Does patient have any new or increased numbness or tingling of extremities? No Is patient interested in fertility information? No Does patient need any prescription refills? No Does patient have an advanced directive in place? No, Patient referred to [facility] documented in this encounterTr[facility]04-26-2022 [facility]04-25-2022 [facility]04-25-2022 History of Present illness Narrative* RT Dimas(R) [...] 30, 2021 TIME: 7:45 AM PAGER/CONTACT #: [phone] documented in this encounterTrinity [facility]04-22-2022 [facility]04-22-2022 History of Present illness Narrative* STEPHANIE Dugan) [...] 2021 TIME: 1:57 PM documented in this encounterTrinity Health [facility]04-19-2022 Miscellaneous Notes* Telephone Encounter - [...] for this procedure: low risk. Reference from [facility] Irrigation Supervisor: [email or web address]/?[email or web address] STAFF SIGNATURE: John Gtz MD DATE: June 24, 2021 TIME: 8:32 AM * Telephone Encounter - Yandy Toni RN - 06/23/2021 4:44 PM EDT BX. COORDINATOR INFORMATION LAB RESULTS: No results found for: INR No results found for: APTT Platelet Count (k/uL) Date Value 06/20/2021 268 11/06/2019 288 Current Outpatient Medications Medication Sig potassium chloride (KLOR-CON) 20 mEq packet Potassium Chloride* ([id number]) 20 MEQ PACKET Active 20 MEQ PO [...] 4:26 PM EDT RADIOLOGY CALL CENTER INTAKE EDGE BURNISHER: IRMA EVANS EXT: [id number] DATE: 06/23/2021 TIME: 4:27PM TRACKING #. [id number] REQUESTING PERSON: LILIAM PHONE/PAGER: [phone] REQUESTING STAFF: Adriana Hodge MD PHONE/PAGER: [phone] SPECIFICS OF THE REQUEST: (Please be as [...] for pathology (For example: send for ER, OR, HER2/silas or possible lymphoma send in RPMI [...] EVALUATE APPROPRIATENESS/FEASIBILITY OF THE REQUEST) IMAGING: OUTSIDE [facility] Films: Where is study now: UPLOADED IN PATIENTS CHART (If the imaging was obtained outside the [facility] system, then it needs to be submitted for review prior to approval.) Note to all persons requesting biopsies: All biopsy requests will be scheduled as quickly as possible, based on the clinical urgency, availability of appointment times, the need to hold anti-thrombolytic therapy (aspirin, blood thinners) and the patient s schedule, including the need for an available cab driver. If a percutaneous biopsy or drainage is not felt to be safe or an alternative method for establishing a diagnosis is possible, this will be discussed directly with the requesting physician. 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 [facility] Residence:[place] Review of Systems: No CP, No SOB, no CVA, no TIA, No [place] No claudication Skin: Rash: denies Lump or mass: denies HEENT: Problems with hearing: denies Double vision or blurred vision: denies Difficulty swallowing: denies Neck: Mass or LN enlargement: denies Pain: denies Chest: SOB: denies Cough: denies Coughing blood: denies Hx pneumonia: denies CVS: Dyspnea on exertion: denies Chest pain: denies Palpitations: denies Hx heart disease, valvular disease: denies Hx [place]: denies GI: Nausea or vomiting: denies Abd [...] which included preparing to see the patient, [id number] patient care, completing clinical documentation and counseling [...] 23, 2021 11:36 AM documented in this encounterTrinity [facility]04-18-2022 Miscellaneous Notes* Telephone Encounter - Dawit Urbina MD - 06/23/2021 8:48 AM EDT Spoke with Patient ID by Relayed to patient CBC and CMP without concern. Patient aware to follow up with Dr. Hodge at 11:00 AM today. Dawit Urbina MD documented in this encounterTrinity [facility]04-15-2022 NoteC[facility]04-25-2005 History of Past illness Narrative* Problem Noted Date Resolved Date Essential hypertension, benign 06/30/2004 0 03/12/2008 ROUTINE MEDICAL EXAM 06/30/2004 11/26/2014 CHEST PAIN NOS 06/30/2004 11/26/2014 documented as of this encounter (statuses as of 06/23/2021) [facility] History of Past illness Narrative* Problem Noted Date Resolved Date Essential hypertension, benign 06/30/2004 0 03/12/2008 ROUTINE MEDICAL EXAM 06/30/2004 11/26/2014 CHEST PAIN NOS 06/30/2004 11/26/2014 documented as of this encounter (statuses as of 06/23/2021) [facility] History of Past illness Narrative* Problem Noted Date Resolved Date Essential hypertension, benign 06/30/2004 0 03/12/2008 ROUTINE MEDICAL EXAM 06/30/2004 11/26/2014 CHEST PAIN NOS 06/30/2004 11/26/2014 documented as of this encounter (statuses as of 06/24/2021) [address] History of Past illness Narrative* Problem Noted Date Resolved Date Essential hypertension, benign 06/30/2004 0 03/12/2008 ROUTINE MEDICAL EXAM 06/30/2004 11/26/2014 CHEST PAIN NOS 06/30/2004 11/26/2014 documented as of this encounter (statuses as of 06/26/2021) [address] History of Past illness Narrative* Problem Noted Date Resolved Date Essential hypertension, benign 06/30/2004 0 03/12/2008 ROUTINE MEDICAL EXAM 06/30/2004 11/26/2014 CHEST PAIN NOS 06/30/2004 11/26/2014 documented as of this encounter (statuses as of 06/28/2021) [address] History of Past illness Narrative* Problem Noted Date Resolved Date Essential hypertension, benign 06/30/2004 0 03/12/2008 ROUTINE MEDICAL EXAM 06/30/2004 11/26/2014 CHEST PAIN NOS 06/30/2004 11/26/2014 documented as of this encounter (statuses as of 06/28/2021) [address] History of Past illness Narrative* Problem Noted Date Resolved Date Essential hypertension, benign 06/30/2004 0 03/12/2008 ROUTINE MEDICAL EXAM 06/30/2004 11/26/2014 CHEST PAIN NOS 06/30/2004 11/26/2014 documented as of this encounter (statuses as of 07/01/2021) [address] History of Past illness Narrative* Problem Noted Date Resolved Date Essential hypertension, benign 06/30/2004 0 03/12/2008 ROUTINE MEDICAL EXAM 06/30/2004 11/26/2014 CHEST PAIN NOS 06/30/2004 11/26/2014 documented as of this encounter (statuses as of 07/01/2021) [address] History of Past illness Narrative* Problem Noted Date Resolved Date Essential hypertension, benign 06/30/2004 0 03/12/2008 ROUTINE MEDICAL EXAM 06/30/2004 11/26/2014 CHEST PAIN NOS 06/30/2004 11/26/2014 documented as of this encounter (statuses as of 07/04/2021) [address] History of Past illness Narrative* Problem Noted Date Resolved Date Essential hypertension, benign 06/30/2004 0 03/12/2008 ROUTINE MEDICAL EXAM 06/30/2004 11/26/2014 CHEST PAIN NOS 06/30/2004 11/26/2014 documented as of this encounter (statuses as of 07/07/2021) [address] History of Past illness Narrative* Problem Noted Date Resolved Date Essential hypertension, benign 06/30/2004 0 03/12/2008 ROUTINE MEDICAL EXAM 06/30/2004 11/26/2014 CHEST PAIN NOS 06/30/2004 11/26/2014 documented as of this encounter (statuses as of 07/08/2021) [address] History of Past illness Narrative* Problem Noted Date Resolved Date Essential hypertension, benign 06/30/2004 0 03/12/2008 ROUTINE MEDICAL EXAM 06/30/2004 11/26/2014 CHEST PAIN NOS 06/30/2004 11/26/2014 documented as of this encounter (statuses as of 07/11/2021) [address] History of Past illness Narrative* Problem Noted Date Resolved Date Essential hypertension, benign 06/30/2004 0 03/12/2008 ROUTINE MEDICAL EXAM 06/30/2004 11/26/2014 CHEST PAIN NOS 06/30/2004 11/26/2014 documented as of this encounter (statuses as of 07/11/2021) [address] History of Past illness Narrative* Problem Noted Date Resolved Date Essential hypertension, benign 06/30/2004 0 03/12/2008 ROUTINE MEDICAL EXAM 06/30/2004 11/26/2014 CHEST PAIN NOS 06/30/2004 11/26/2014 documented as of this encounter (statuses as of 07/11/2021) [address] History of Past illness Narrative* Problem Noted Date Resolved Date Essential hypertension, benign 06/30/2004 0 03/12/2008 ROUTINE MEDICAL EXAM 06/30/2004 11/26/2014 CHEST PAIN NOS 06/30/2004 11/26/2014 documented as of this encounter (statuses as of 07/14/2021) [address] History of Past illness Narrative* Problem Noted Date Resolved Date Essential hypertension, benign 06/30/2004 0 03/12/2008 ROUTINE MEDICAL EXAM 06/30/2004 11/26/2014 CHEST PAIN NOS 06/30/2004 11/26/2014 documented as of this encounter (statuses as of 07/15/2021) [address] History of Past illness Narrative* Problem Noted Date Resolved Date Essential hypertension, benign 06/30/2004 0 03/12/2008 ROUTINE MEDICAL EXAM 06/30/2004 11/26/2014 CHEST PAIN NOS 06/30/2004 11/26/2014 documented as of this encounter (statuses as of 07/15/2021) [address] History of Past illness Narrative* Problem Noted Date Resolved Date Essential hypertension, benign 06/30/2004 0 03/12/2008 ROUTINE MEDICAL EXAM 06/30/2004 11/26/2014 CHEST PAIN NOS 06/30/2004 11/26/2014 documented as of this encounter (statuses as of 07/21/2021) [address] History of Past illness Narrative* Problem Noted Date Resolved Date Essential hypertension, benign 06/30/2004 0 03/12/2008 ROUTINE MEDICAL EXAM 06/30/2004 11/26/2014 CHEST PAIN NOS 06/30/2004 11/26/2014 documented as of this encounter (statuses as of 07/21/2021) [address] History of Past illness Narrative* Problem Noted Date Resolved Date Essential hypertension, benign 06/30/2004 0 03/12/2008 ROUTINE MEDICAL EXAM 06/30/2004 11/26/2014 CHEST PAIN NOS 06/30/2004 11/26/2014 documented as of this encounter (statuses as of 07/21/2021) [address] History of Past illness Narrative* Problem Noted Date Resolved Date Essential hypertension, benign 06/30/2004 0 03/12/2008 ROUTINE MEDICAL EXAM 06/30/2004 11/26/2014 CHEST PAIN NOS 06/30/2004 11/26/2014 documented as of this encounter (statuses as of 07/22/2021) [address] History of Past illness Narrative* Problem Noted Date Resolved Date Essential hypertension, benign 06/30/2004 0 03/12/2008 ROUTINE MEDICAL EXAM 06/30/2004 11/26/2014 CHEST PAIN NOS 06/30/2004 11/26/2014 documented as of this encounter (statuses as of 07/22/2021) [address] History of Past illness Narrative* Problem Noted Date Resolved Date Essential hypertension, benign 06/30/2004 0 03/12/2008 ROUTINE MEDICAL EXAM 06/30/2004 11/26/2014 CHEST PAIN NOS 06/30/2004 11/26/2014 documented as of this encounter (statuses as of 07/23/2021) [address] History of Past illness Narrative* Problem Noted Date Resolved Date Essential hypertension, benign 06/30/2004 0 03/12/2008 ROUTINE MEDICAL EXAM 06/30/2004 11/26/2014 CHEST PAIN NOS 06/30/2004 11/26/2014 documented as of this encounter (statuses as of 07/24/2021) [address] History of Past illness Narrative* Problem Noted Date Resolved Date Essential hypertension, benign 06/30/2004 0 03/12/2008 ROUTINE MEDICAL EXAM 06/30/2004 11/26/2014 CHEST PAIN NOS 06/30/2004 11/26/2014 documented as of this encounter (statuses as of 07/24/2021) [address] History of Past illness Narrative* Problem Noted Date Resolved Date Essential hypertension, benign 06/30/2004 0 03/12/2008 ROUTINE MEDICAL EXAM 06/30/2004 11/26/2014 CHEST PAIN NOS 06/30/2004 11/26/2014 documented as of this encounter (statuses as of 07/25/2021) [address]2005 History of Past illness Narrative* Problem Noted Date Resolved Date Essential hypertension, benign 06/30/2004 0 03/12/2008 ROUTINE MEDICAL EXAM 06/30/2004 11/26/2014 CHEST PAIN NOS 06/30/2004 11/26/2014 documented as of this encounter (statuses as of 07/25/2021) [address] History of Past illness Narrative* Problem Noted Date Resolved Date Essential hypertension, benign 06/30/2004 0 03/12/2008 ROUTINE MEDICAL EXAM 06/30/2004 11/26/2014 CHEST PAIN NOS 06/30/2004 11/26/2014 documented as of this encounter (statuses as of 07/28/2021) [address]25-2005 History of Past illness Narrative* Problem Noted Date Resolved Date Essential hypertension, benign 06/30/2004 0 03/12/2008 ROUTINE MEDICAL EXAM 06/30/2004 11/26/2014 CHEST PAIN NOS 06/30/2004 11/26/2014 documented as of this encounter (statuses as of 07/29/2021) [address] History of Past illness Narrative* Problem Noted Date Resolved Date Essential hypertension, benign 06/30/2004 0 03/12/2008 ROUTINE MEDICAL EXAM 06/30/2004 11/26/2014 CHEST PAIN NOS 06/30/2004 11/26/2014 documented as of this encounter (statuses as of 07/29/2021) [address] History of Past illness Narrative* Problem Noted Date Resolved Date Essential hypertension, benign 06/30/2004 0 03/12/2008 ROUTINE MEDICAL EXAM 06/30/2004 11/26/2014 CHEST PAIN NOS 06/30/2004 11/26/2014 documented as of this encounter (statuses as of 07/30/2021) [address] History of Past illness Narrative* Problem Noted Date Resolved Date Essential hypertension, benign 06/30/2004 0 03/12/2008 ROUTINE MEDICAL EXAM 06/30/2004 11/26/2014 CHEST PAIN NOS 06/30/2004 11/26/2014 documented as of this encounter (statuses as of 07/31/2021) [address] History of Past illness Narrative* Problem Noted Date Resolved Date Essential hypertension, benign 06/30/2004 0 03/12/2008 ROUTINE MEDICAL EXAM 06/30/2004 11/26/2014 CHEST PAIN NOS 06/30/2004 11/26/2014 documented as of this encounter (statuses as of 08/03/2021) [address]25[address]2005 History of Past illness Narrative* Problem Noted Date Resolved Date Essential hypertension, benign 06/30/2004 0 03/12/2008 ROUTINE MEDICAL EXAM 06/30/2004 11/26/2014 CHEST PAIN NOS 06/30/2004 11/26/2014 documented as of this encounter (statuses as of 08/06/2021) [address] History of Past illness Narrative* Problem Noted Date Resolved Date Essential hypertension, benign 06/30/2004 0 03/12/2008 ROUTINE MEDICAL EXAM 06/30/2004 11/26/2014 CHEST PAIN NOS 06/30/2004 11/26/2014 documented as of this encounter (statuses as of 08/06/2021) [address] History of Past illness Narrative* Problem Noted Date Resolved Date Essential hypertension, benign 06/30/2004 0 03/12/2008 ROUTINE MEDICAL EXAM 06/30/2004 11/26/2014 CHEST PAIN NOS 06/30/2004 11/26/2014 documented as of this encounter (statuses as of 08/07/2021) [address] History of Past illness Narrative* Problem Noted Date Resolved Date Essential hypertension, benign 06/30/2004 0 03/12/2008 ROUTINE MEDICAL EXAM 06/30/2004 11/26/2014 CHEST PAIN NOS 06/30/2004 11/26/2014 documented as of this encounter (statuses as of 08/08/2021) [address] History of Past illness Narrative* Problem Noted Date Resolved Date Essential hypertension, benign 06/30/2004 0 03/12/2008 ROUTINE MEDICAL EXAM 06/30/2004 11/26/2014 CHEST PAIN NOS 06/30/2004 11/26/2014 documented as of this encounter (statuses as of 08/08/2021) [address] History of Past illness Narrative* Problem Noted Date Resolved Date Essential hypertension, benign 06/30/2004 0 03/12/2008 ROUTINE MEDICAL EXAM 06/30/2004 11/26/2014 CHEST PAIN NOS 06/30/2004 11/26/2014 documented as of this encounter (statuses as of 08/08/2021) [address] History of Past illness Narrative* Problem Noted Date Resolved Date Essential hypertension, benign 06/30/2004 0 03/12/2008 ROUTINE MEDICAL EXAM 06/30/2004 11/26/2014 CHEST PAIN NOS 06/30/2004 11/26/2014 documented as of this encounter (statuses as of 08/08/2021) [address] History of Past illness Narrative* Problem Noted Date Resolved Date Essential hypertension, benign 06/30/2004 0 03/12/2008 ROUTINE MEDICAL EXAM 06/30/2004 11/26/2014 CHEST PAIN NOS 06/30/2004 11/26/2014 documented as of this encounter (statuses as of 08/11/2021) [address] History of Past illness Narrative* Problem Noted Date Resolved Date Essential hypertension, benign 06/30/2004 0 03/12/2008 ROUTINE MEDICAL EXAM 06/30/2004 11/26/2014 CHEST PAIN NOS 06/30/2004 11/26/2014 documented as of this encounter (statuses as of 08/12/2021) [address] History of Past illness Narrative* Problem Noted Date Resolved Date Essential hypertension, benign 06/30/2004 0 03/12/2008 ROUTINE MEDICAL EXAM 06/30/2004 11/26/2014 CHEST PAIN NOS 06/30/2004 11/26/2014 documented as of this encounter (statuses as of 08/12/2021) [address] History of Past illness Narrative* Problem Noted Date Resolved Date Essential hypertension, benign 06/30/2004 0 03/12/2008 ROUTINE MEDICAL EXAM 06/30/2004 11/26/2014 CHEST PAIN NOS 06/30/2004 11/26/2014 documented as of this encounter (statuses as of 08/13/2021) [address] History of Past illness Narrative* Problem Noted Date Resolved Date Essential hypertension, benign 06/30/2004 0 03/12/2008 ROUTINE MEDICAL EXAM 06/30/2004 11/26/2014 CHEST PAIN NOS 06/30/2004 11/26/2014 documented as of this encounter (statuses as of 08/18/2021) [address]25[address]2005 History of Past illness Narrative* Problem Noted Date Resolved Date Essential hypertension, benign 06/30/2004 0 03/12/2008 ROUTINE MEDICAL EXAM 06/30/2004 11/26/2014 CHEST PAIN NOS 06/30/2004 11/26/2014 documented as of this encounter (statuses as of 08/18/2021) [address]25[address]2005 History of Past illness Narrative* Problem Noted Date Resolved Date Essential hypertension, benign 06/30/2004 0 03/12/2008 ROUTINE MEDICAL EXAM 06/30/2004 11/26/2014 CHEST PAIN NOS 06/30/2004 11/26/2014 documented as of this encounter (statuses as of 08/18/2021) [address]25[address]2005 History of Past illness Narrative* Problem Noted Date Resolved Date Essential hypertension, benign 06/30/2004 0 03/12/2008 ROUTINE MEDICAL EXAM 06/30/2004 11/26/2014 CHEST PAIN NOS 06/30/2004 11/26/2014 documented as of this encounter (statuses as of 08/19/2021) [address] History of Past illness Narrative* Problem Noted Date Resolved Date Essential hypertension, benign 06/30/2004 0 03/12/2008 ROUTINE MEDICAL EXAM 06/30/2004 11/26/2014 CHEST PAIN NOS 06/30/2004 11/26/2014 documented as of this encounter (statuses as of 08/19/2021) [address] History of Past illness Narrative* Problem Noted Date Resolved Date Essential hypertension, benign 06/30/2004 0 03/12/2008 ROUTINE MEDICAL EXAM 06/30/2004 11/26/2014 CHEST PAIN NOS 06/30/2004 11/26/2014 documented as of this encounter (statuses as of 08/20/2021) [address] History of Past illness Narrative* Problem Noted Date Resolved Date Essential hypertension, benign 06/30/2004 0 03/12/2008 ROUTINE MEDICAL EXAM 06/30/2004 11/26/2014 CHEST PAIN NOS 06/30/2004 11/26/2014 documented as of this encounter (statuses as of 08/21/2021) [address] History of Past illness Narrative* Problem Noted Date Resolved Date Essential hypertension, benign 06/30/2004 0 03/12/2008 ROUTINE MEDICAL EXAM 06/30/2004 11/26/2014 CHEST PAIN NOS 06/30/2004 11/26/2014 documented as of this encounter (statuses as of 08/27/2021) [address] History of Past illness Narrative* Problem Noted Date Resolved Date Essential hypertension, benign 06/30/2004 0 03/12/2008 ROUTINE MEDICAL EXAM 06/30/2004 11/26/2014 CHEST PAIN NOS 06/30/2004 11/26/2014 documented as of this encounter (statuses as of 08/28/2021) [address] History of Past illness Narrative* Problem Noted Date Resolved Date Essential hypertension, benign 06/30/2004 0 03/12/2008 ROUTINE MEDICAL EXAM 06/30/2004 11/26/2014 CHEST PAIN NOS 06/30/2004 11/26/2014 documented as of this encounter (statuses as of 09/01/2021) [address]25-2005 History of Past illness Narrative* Problem Noted Date Resolved Date Essential hypertension, benign 06/30/2004 0 03/12/2008 ROUTINE MEDICAL EXAM 06/30/2004 11/26/2014 CHEST PAIN NOS 06/30/2004 11/26/2014 documented as of this encounter (statuses as of 09/02/2021) [address] History of Past illness Narrative* Problem Noted Date Resolved Date Essential hypertension, benign 06/30/2004 0 03/12/2008 ROUTINE MEDICAL EXAM 06/30/2004 11/26/2014 CHEST PAIN NOS 06/30/2004 11/26/2014 documented as of this encounter (statuses as of 09/03/2021) [address] History of Past illness Narrative* Problem Noted Date Resolved Date Essential hypertension, benign 06/30/2004 0 03/12/2008 ROUTINE MEDICAL EXAM 06/30/2004 11/26/2014 CHEST PAIN NOS 06/30/2004 11/26/2014 documented as of this encounter (statuses as of 09/03/2021) [address] History of Past illness Narrative* Problem Noted Date Resolved Date Essential hypertension, benign 06/30/2004 0 03/12/2008 ROUTINE MEDICAL EXAM 06/30/2004 11/26/2014 CHEST PAIN NOS 06/30/2004 11/26/2014 documented as of this encounter (statuses as of 09/03/2021) [address]2005 History of Past illness Narrative* Problem Noted Date Resolved Date Essential hypertension, benign 06/30/2004 0 03/12/2008 ROUTINE MEDICAL EXAM 06/30/2004 11/26/2014 CHEST PAIN NOS 06/30/2004 11/26/2014 documented as of this encounter (statuses as of 09/11/2021) [address]2005 History of Past illness Narrative* Problem Noted Date Resolved Date Essential hypertension, benign 06/30/2004 0 03/12/2008 ROUTINE MEDICAL EXAM 06/30/2004 11/26/2014 CHEST PAIN NOS 06/30/2004 11/26/2014 documented as of this encounter (statuses as of 09/11/2021) [address] History of Past illness Narrative* Problem Noted Date Resolved Date Essential hypertension, benign 06/30/2004 0 03/12/2008 ROUTINE MEDICAL EXAM 06/30/2004 11/26/2014 CHEST PAIN NOS 06/30/2004 11/26/2014 documented as of this encounter (statuses as of 09/16/2021) [address]2005 History of Past illness Narrative* Problem Noted Date Resolved Date Essential hypertension, benign 06/30/2004 0 03/12/2008 ROUTINE MEDICAL EXAM 06/30/2004 11/26/2014 CHEST PAIN NOS 06/30/2004 11/26/2014 documented as of this encounter (statuses as of 09/17/2021) [address]2005 History of Past illness Narrative* Problem Noted Date Resolved Date Essential hypertension, benign 06/30/2004 0 03/12/2008 ROUTINE MEDICAL EXAM 06/30/2004 11/26/2014 CHEST PAIN NOS 06/30/2004 11/26/2014 documented as of this encounter (statuses as of 09/19/2021) [address] History of Past illness Narrative* Problem Noted Date Resolved Date Essential hypertension, benign 06/30/2004 0 03/12/2008 ROUTINE MEDICAL EXAM 06/30/2004 11/26/2014 CHEST PAIN NOS 06/30/2004 11/26/2014 documented as of this encounter (statuses as of 09/22/2021) [address]2005 History of Past illness Narrative* Problem Noted Date Resolved Date Essential hypertension, benign 06/30/2004 0 03/12/2008 ROUTINE MEDICAL EXAM 06/30/2004 11/26/2014 CHEST PAIN NOS 06/30/2004 11/26/2014 documented as of this encounter (statuses as of 09/29/2021) [address]2005 History of Past illness Narrative* Problem Noted Date Resolved Date Essential hypertension, benign 06/30/2004 0 03/12/2008 ROUTINE MEDICAL EXAM 06/30/2004 11/26/2014 CHEST PAIN NOS 06/30/2004 11/26/2014 documented as of this encounter (statuses as of 09/29/2021) [address] History of Past illness Narrative* Problem Noted Date Resolved Date Essential hypertension, benign 06/30/2004 0 03/12/2008 ROUTINE MEDICAL EXAM 06/30/2004 11/26/2014 CHEST PAIN NOS 06/30/2004 11/26/2014 documented as of this encounter (statuses as of 09/29/2021) [address]25-2005 History of Past illness Narrative* Problem Noted Date Resolved Date Essential hypertension, benign 06/30/2004 0 03/12/2008 ROUTINE MEDICAL EXAM 06/30/2004 11/26/2014 CHEST PAIN NOS 06/30/2004 11/26/2014 documented as of this encounter (statuses as of 10/09/2021) [address]2005 History of Past illness Narrative* Problem Noted Date Resolved Date Essential hypertension, benign 06/30/2004 0 03/12/2008 ROUTINE MEDICAL EXAM 06/30/2004 11/26/2014 CHEST PAIN NOS 06/30/2004 11/26/2014 documented as of this encounter (statuses as of 10/13/2021) [address]2005 History of Past illness Narrative* Problem Noted Date Resolved Date Essential hypertension, benign 06/30/2004 0 03/12/2008 ROUTINE MEDICAL EXAM 06/30/2004 11/26/2014 CHEST PAIN NOS 06/30/2004 11/26/2014 documented as of this encounter (statuses as of 10/14/2021) [address]2005 History of Past illness Narrative* Problem Noted Date Resolved Date Essential hypertension, benign 06/30/2004 0 03/12/2008 ROUTINE MEDICAL EXAM 06/30/2004 11/26/2014 CHEST PAIN NOS 06/30/2004 11/26/2014 documented as of this encounter (statuses as of 10/21/2021) [address]25-2005 History of Past illness Narrative* Problem Noted Date Resolved Date Essential hypertension, benign 06/30/2004 0 03/12/2008 ROUTINE MEDICAL EXAM 06/30/2004 11/26/2014 CHEST PAIN NOS 06/30/2004 11/26/2014 documented as of this encounter (statuses as of 10/21/2021) [address]2005 History of Past illness Narrative* Problem Noted Date Resolved Date Essential hypertension, benign 06/30/2004 0 03/12/2008 ROUTINE MEDICAL EXAM 06/30/2004 11/26/2014 CHEST PAIN NOS 06/30/2004 11/26/2014 documented as of this encounter (statuses as of 10/27/2021) [address]2005 History of Past illness Narrative* Problem Noted Date Resolved Date Essential hypertension, benign 06/30/2004 0 03/12/2008 ROUTINE MEDICAL EXAM 06/30/2004 11/26/2014 CHEST PAIN NOS 06/30/2004 11/26/2014 documented as of this encounter (statuses as of 10/27/2021) [address]2005 History of Past illness Narrative* Problem Noted Date Resolved Date Essential hypertension, benign 06/30/2004 0 03/12/2008 ROUTINE MEDICAL EXAM 06/30/2004 11/26/2014 CHEST PAIN NOS 06/30/2004 11/26/2014 documented as of this encounter (statuses as of 11/03/2021) [address]2005 History of Past illness Narrative* Problem Noted Date Resolved Date Essential hypertension, benign 06/30/2004 0 03/12/2008 ROUTINE MEDICAL EXAM 06/30/2004 11/26/2014 CHEST PAIN NOS 06/30/2004 11/26/2014 documented as of this encounter (statuses as of 11/04/2021) [address]2005 History of Past illness Narrative* Problem Noted Date Resolved Date Essential hypertension, benign 06/30/2004 0 03/12/2008 ROUTINE MEDICAL EXAM 06/30/2004 11/26/2014 CHEST PAIN NOS 06/30/2004 11/26/2014 documented as of this encounter (statuses as of 11/06/2021) [address] History of Past illness Narrative* Problem Noted Date Resolved Date Essential hypertension, benign 06/30/2004 0 03/12/2008 ROUTINE MEDICAL EXAM 06/30/2004 11/26/2014 CHEST PAIN NOS 06/30/2004 11/26/2014 documented as of this encounter (statuses as of 11/17/2021) [address] History of Past illness Narrative* Problem Noted Date Resolved Date Essential hypertension, benign 06/30/2004 0 03/12/2008 ROUTINE MEDICAL EXAM 06/30/2004 11/26/2014 CHEST PAIN NOS 06/30/2004 11/26/2014 documented as of this encounter (statuses as of 11/19/2021) [address] History of Past illness Narrative* Problem Noted Date Resolved Date Essential hypertension, benign 06/30/2004 0 03/12/2008 ROUTINE MEDICAL EXAM 06/30/2004 11/26/2014 CHEST PAIN NOS 06/30/2004 11/26/2014 documented as of this encounter (statuses as of 11/21/2021) [address] History of Past illness Narrative* Problem Noted Date Resolved Date Essential hypertension, benign 06/30/2004 0 03/12/2008 ROUTINE MEDICAL EXAM 06/30/2004 11/26/2014 CHEST PAIN NOS 06/30/2004 11/26/2014 documented as of this encounter (statuses as of 11/21/2021) [address] History of Past illness Narrative* Problem Noted Date Resolved Date Essential hypertension, benign 06/30/2004 0 03/12/2008 ROUTINE MEDICAL EXAM 06/30/2004 11/26/2014 CHEST PAIN NOS 06/30/2004 11/26/2014 documented as of this encounter (statuses as of 11/25/2021) [address] History of Past illness Narrative* Problem Noted Date Resolved Date Essential hypertension, benign 06/30/2004 0 03/12/2008 ROUTINE MEDICAL EXAM 06/30/2004 11/26/2014 CHEST PAIN NOS 06/30/2004 11/26/2014 documented as of this encounter (statuses as of 11/29/2021) [address] History of Past illness Narrative* Problem Noted Date Resolved Date Essential hypertension, benign 06/30/2004 0 03/12/2008 ROUTINE MEDICAL EXAM 06/30/2004 11/26/2014 CHEST PAIN NOS 06/30/2004 11/26/2014 documented as of this encounter (statuses as of 12/09/2021) [address] History of Past illness Narrative* Problem Noted Date Resolved Date Essential hypertension, benign 06/30/2004 0 03/12/2008 ROUTINE MEDICAL EXAM 06/30/2004 11/26/2014 CHEST PAIN NOS 06/30/2004 11/26/2014 documented as of this encounter (statuses as of 12/17/2021) [address] History of Past illness Narrative* Problem Noted Date Resolved Date Essential hypertension, benign 06/30/2004 0 03/12/2008 ROUTINE MEDICAL EXAM 06/30/2004 11/26/2014 CHEST PAIN NOS 06/30/2004 11/26/2014 documented as of this encounter (statuses as of 12/27/2021) [address]2005 History of Past illness Narrative* Problem Noted Date Resolved Date Essential hypertension, benign 06/30/2004 0 03/12/2008 ROUTINE MEDICAL EXAM 06/30/2004 11/26/2014 CHEST PAIN NOS 06/30/2004 11/26/2014 documented as of this encounter (statuses as of 12/28/2021) [address] History of Past illness Narrative* Problem Noted Date Resolved Date Essential hypertension, benign 06/30/2004 0 03/12/2008 ROUTINE MEDICAL EXAM 06/30/2004 11/26/2014 CHEST PAIN NOS 06/30/2004 11/26/2014 documented as of this encounter (statuses as of 12/30/2021) [address]2005 History of Past illness Narrative* Problem Noted Date Resolved Date Essential hypertension, benign 06/30/2004 0 03/12/2008 ROUTINE MEDICAL EXAM 06/30/2004 11/26/2014 CHEST PAIN NOS 06/30/2004 11/26/2014 documented as of this encounter (statuses as of 12/30/2021) [address]2005 History of Past illness Narrative* Problem Noted Date Resolved Date Essential hypertension, benign 06/30/2004 0 03/12/2008 ROUTINE MEDICAL EXAM 06/30/2004 11/26/2014 CHEST PAIN NOS 06/30/2004 11/26/2014 documented as of this encounter (statuses as of 01/07/2022) [address]2005 History of Past illness Narrative* Problem Noted Date Resolved Date Essential hypertension, benign 06/30/2004 0 03/12/2008 ROUTINE MEDICAL EXAM 06/30/2004 11/26/2014 CHEST PAIN NOS 06/30/2004 11/26/2014 documented as of this encounter (statuses as of 01/20/2022) [address] History of Past illness Narrative* Problem Noted Date Resolved Date Essential hypertension, benign 06/30/2004 0 03/12/2008 ROUTINE MEDICAL EXAM 06/30/2004 11/26/2014 CHEST PAIN NOS 06/30/2004 11/26/2014 documented as of this encounter (statuses as of 01/22/2022) [address] History of Past illness Narrative* Problem Noted Date Resolved Date Essential hypertension, benign 06/30/2004 0 03/12/2008 ROUTINE MEDICAL EXAM 06/30/2004 11/26/2014 CHEST PAIN NOS 06/30/2004 11/26/2014 documented as of this encounter (statuses as of 01/26/2022) [address] History of Past illness Narrative* Problem Noted Date Resolved Date Essential hypertension, benign 06/30/2004 0 03/12/2008 ROUTINE MEDICAL EXAM 06/30/2004 11/26/2014 CHEST PAIN NOS 06/30/2004 11/26/2014 documented as of this encounter (statuses as of 02/12/2022) [place] [address] History of Past illness Narrative* Problem Noted Date Resolved Date Essential hypertension, benign 06/30/2004 0 03/12/2008 ROUTINE MEDICAL EXAM 06/30/2004 11/26/2014 CHEST PAIN NOS 06/30/2004 11/26/2014 documented as of this encounter (statuses as of 02/13/2022) [address] History of Past illness Narrative* Problem Noted Date Resolved Date Essential hypertension, benign 06/30/2004 0 03/12/2008 ROUTINE MEDICAL EXAM 06/30/2004 11/26/2014 CHEST PAIN NOS 06/30/2004 11/26/2014 documented as of this encounter (statuses as of 02/16/2022) [address] History of Past illness Narrative* Problem Noted Date Resolved Date Essential hypertension, benign 06/30/2004 0 03/12/2008 ROUTINE MEDICAL EXAM 06/30/2004 11/26/2014 CHEST PAIN NOS 06/30/2004 11/26/2014 documented as of this encounter (statuses as of 02/17/2022) [address] History of Past illness Narrative* Problem Noted Date Resolved Date Essential hypertension, benign 06/30/2004 0 03/12/2008 ROUTINE MEDICAL EXAM 06/30/2004 11/26/2014 CHEST PAIN NOS 06/30/2004 11/26/2014 documented as of this encounter (statuses as of 02/17/2022) [address] History of Past illness Narrative* Problem Noted Date Resolved Date Essential hypertension, benign 06/30/2004 0 03/12/2008 ROUTINE MEDICAL EXAM 06/30/2004 11/26/2014 CHEST PAIN NOS 06/30/2004 11/26/2014 documented as of this encounter (statuses as of 03/13/2022) [address] History of Past illness Narrative* Problem Noted Date Resolved Date Essential hypertension, benign 06/30/2004 0 03/12/2008 ROUTINE MEDICAL EXAM 06/30/2004 11/26/2014 CHEST PAIN NOS 06/30/2004 11/26/2014 documented as of this encounter (statuses as of 03/13/2022) [address] History of Past illness Narrative* Problem Noted Date Resolved Date Essential hypertension, benign 06/30/2004 0 03/12/2008 ROUTINE MEDICAL EXAM 06/30/2004 11/26/2014 CHEST PAIN NOS 06/30/2004 11/26/2014 documented as of this encounter (statuses as of 03/17/2022) [address] History of Past illness Narrative* Problem Noted Date Resolved Date Essential hypertension, benign 06/30/2004 0 03/12/2008 ROUTINE MEDICAL EXAM 06/30/2004 11/26/2014 CHEST PAIN NOS 06/30/2004 11/26/2014 documented as of this encounter (statuses as of 03/17/2022) [address] History of Past illness Narrative* Problem Noted Date Resolved Date Essential hypertension, benign 06/30/2004 0 03/12/2008 ROUTINE MEDICAL EXAM 06/30/2004 11/26/2014 CHEST PAIN NOS 06/30/2004 11/26/2014 documented as of this encounter (statuses as of 03/23/2022) [address] History of Past illness Narrative* Problem Noted Date Resolved Date Essential hypertension, benign 06/30/2004 0 03/12/2008 ROUTINE MEDICAL EXAM 06/30/2004 11/26/2014 CHEST PAIN NOS 06/30/2004 11/26/2014 documented as of this encounter (statuses as of 03/24/2022) [address] History of Past illness Narrative* Problem Noted Date Resolved Date Essential hypertension, benign 06/30/2004 0 03/12/2008 ROUTINE MEDICAL EXAM 06/30/2004 11/26/2014 CHEST PAIN NOS 06/30/2004 11/26/2014 documented as of this encounter (statuses as of 03/25/2022) [address] History of Past illness Narrative* Problem Noted Date Resolved Date Essential hypertension, benign 06/30/2004 0 03/12/2008 ROUTINE MEDICAL EXAM 06/30/2004 11/26/2014 CHEST PAIN NOS 06/30/2004 11/26/2014 documented as of this encounter (statuses as of 03/27/2022) [address] History of Past illness Narrative* Problem Noted Date Resolved Date Essential hypertension, benign 06/30/2004 0 03/12/2008 ROUTINE MEDICAL EXAM 06/30/2004 11/26/2014 CHEST PAIN NOS 06/30/2004 11/26/2014 documented as of this encounter (statuses as of 04/02/2022) [facility]04-25-2005 History of Past illness Narrative* Problem Noted Date Resolved Date Essential hypertension, benign 06/30/2004 0 03/12/2008 ROUTINE MEDICAL EXAM 06/30/2004 11/26/2014 CHEST PAIN NOS 06/30/2004 11/26/2014 documented as of this encounter (statuses as of 04/09/2022) [facility] Chiu [facility] April 16, 2022 1:56pm Note Date/Time April 16, 2022 1 :41pm [facility] Medical Records Department [address] [place] [address] Discharge Summary 04/16/22 1341 MR#: [id number] Acct: [id number] Name: YEFRI YANEZ Rep #:[id number] 1965 57 From: Carol Chiu DO PCP: Dr. Jose Ramon Turner MD Status: ADM IN Location: [place] [address] Providers Date of Admission: 04/13/22 Date of [...] Hospital Course: Mr. 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 Aravind Lopez at [facility]. He doeshave metastatic disease to the [...] He is in the need of switching service architect. He request to see Dr. Gaona however [...] distress and well nourished Constitutional Narrative: Obese, -Albanian, sitting up on the edge of the [...] Self Care Charges/Coding Visit Charges Inpatient E&M: 76817 Disch Hosp >30min 04/16/22 1355 <Electronically signed by Carol Chiu DO> Cosigner Signature (if applicable): CC: Dr. Jose Ramon Turner MD; Dr. Carol Chiu DO~ Signed [facility] Work Phone: Discharge summary Author Carol [facility] December 17, 2022 12:20pm Note Date/Time December 17, 2022 1 2:11pm [facility] Medical Records Department [address] [place] [address] Discharge Summary 12/17/22 1210 MR#: [id number] Acct: [id number] Name: YEFRI YANEZ Rep #:[id number] : 1965 57 From: Carol Chiu DO PCP: Dr. Jose Ramon Turner MD Status: [facility] Prov[facility] Date of Admission: 12/16/22 [...] Hospital Course: Mr. Yanez is a 57-year-old -Albanian male who presented to the emergency department at [facility] on 12/15/2022 with worsening shortness of breath. Patient told the admitting physician that he is supposed to be wearing his oxygen all the time at home however he is only wearing it whenneeded. His oxygen was written for by Dr. Yanez and is to be 3 L [id number]. He does have a history of systolic [...] failure--> home prescription is for 3 L [id number] Atrial fibrillation Hyperlipidemia GERD NIMCO Tobacco abuse Physical Exam Const no apparent distress and well nourished; Negative for average body habitus or healthy appearing Constitutional Narrative: Obese, -Albanian, male, lying in bed resting comfortably but [...] 71.5 H, Lymph % (Auto) 16.9 L, Winkler % (Auto) 9.8, Eos % (Auto) 1.0, [...] Self Care Charges/Coding Visit Charges Inpatient E&M: 55682 Disch Hosp >30min 12/17/22 1220 <Electronically signed by Carol Chiu DO> Cosigner Signature (if applicable): CC: Dr. Jose Ramon Turner MD; Dr. Carol Chiu DO; Dr. Cipriano Yanez MD~ [facility] Work Phone: Evaluation note* Diagnosis Onset Date Resolution Status Mass of chest wall Active [facility] Work Phone: Evaluation note* Diagnosis Malignant neoplasm of kidney, unspecified laterality (HCC)- Primary Malignant neoplasm of kidney excluding renal pelvis, unspecified laterality (HCC) [facility] Mass of right chest wall- Primary [facility] Screening for genitourinary condition Screening for other and unspecified genitourinary condition Malignant neoplasm of kidney, unspecified laterality (HCC) [facility] Malignant neoplasm of kidney, [...] unspecified laterality (HCC) [facility] Diagnosis Malignant neoplasm of kidney [...] laterality (HCC)- Primary [facility] [place] [facility]* Diagnosis Malignant neoplasm of right kidney, except renal pelvis (HCC) Malignant neoplasm of kidney, except pelvis Renal cell carcinoma, unspecified laterality (HCC) [facility] encounter [facility] [place] [facility]* Diagnosis Malignant neoplasm of kidney excluding renal pelvis, unspecified laterality (HCC) Renal cell carcinoma, unspecified laterality (HCC) [facility] [place] noteNo assessment information availableWLouis Stokes [facility] Work Phone: Evaluation note* Diagnosis Nonrheumatic mitral valve regurgitation- Primary Cardiomyopathy, nonischemic (HCC) Other primary cardiomyopathies documented in this encounter [facility] [place] [facility]* Diagnosis Malignant neoplasm of kidney excluding renal pelvis, unspecified laterality (HCC)- Primary Metastatic renal cell carcinoma, unspecified laterality (HCC) documented [facility] this encounter [facility] [place] [facility]* Diagnosis Renal cell carcinoma, unspecified laterality (HCC)- Primary [facility] this encounter [facility] [place] [facility]* Diagnosis Malignant neoplasm of kidney excluding renal pelvis, unspecified laterality (HCC) documented [facility] this encounter [facility] [place] [facility]* Diagnosis Renal cell carcinoma of right kidney (HCC)- Primary [facility] [place] [facility]* Diagnosis Nonrheumatic mitral valve regurgitation- Primary Nonrheumatic mitral valve regurgitation documented in this encounter [facility] [place] [facility]* Diagnosis Renal cell carcinoma, unspecified laterality (HCC)- Primary Hypertension, unspecified type [facility] [place] [facility]* Diagnosis Renal cell carcinoma of right kidney (HCC)- Primary [facility] [place] [facility]* Diagnosis Malignant neoplasm of right kidney, except renal pelvis (HCC) Malignant neoplasm of kidney, except pelvis [facility] [place] [facility]* Diagnosis Renal cell carcinoma, unspecified laterality (HCC)- Primary [facility] this encounter [facility] [place] [facility]* Diagnosis Renal cell carcinoma of right kidney (HCC)- Primary documented in this encounter [facility] [place] [facility]* Diagnosis Renal cell carcinoma of right kidney (HCC)- Primary [facility]* Diagnosis Other specified disorders of kidney and ureter documented [facility] this encounter [facility] [place] [facility]* Diagnosis OPENED IN ERROR- Primary To allow closing an encounter opened in error (used in SmartSet) documented in this encounter [facility] [place] [facility]* Diagnosis Pedal edema- Primary Edema Essential hypertension Unspecified essential hypertension Coronary artery disease involving qagan t[place] coronary artery of [place]agan [place] heart without angina pectoris Disturbance in sleep behavior Sleep disturbance, unspecified [facility] [place] [facility]* Diagnosis Renal cell carcinoma, unspecified laterality (HCC)- Primary Hypertension, unspecified type documented in this encounter [facility] [place] [facility]* Diagnosis Renal cell carcinoma, unspecified laterality (HCC)- Primary [facility] [place] [facility]* Diagnosis Malignant neoplasm of kidney excluding renal pelvis, unspecified laterality (HCC) documented in this encounter [facility] [place] [facility]* Diagnosis Malignant neoplasm of right kidney, except renal pelvis (HCC)- Primary Malignant neoplasm of kidney, except pelvis [facility] [place] [facility] Diagnosis SOB (shortness of breath)- Primary Shortness of breath Encounter for screening for COVID-19 Renal mass, right Unspecified disorder of kidney and ureter documented [facility] this encounter [facility] [place] [facility]* Diagnosis SOB (shortness of breath) Shortness of breath Encounter for screening for COVID-19 Renal mass, right Unspecified disorder of kidney and ureter documented [facility] this encounter [facility] [place] [facility]* Diagnosis SOB (shortness of breath) Shortness of breath Encounter for screening for COVID-19 Renal mass, right Unspecified disorder of kidney and ureter documented [facility] this [facility] [place] [facility]* Diagnosis Renal cell carcinoma of right kidney (HCC)- Primary Encounter for screening for COVID-19 Renal mass, right Unspecified disorder of kidney and ureter documented [facility] this [facility] [place] [facility]* Diagnosis Metastatic renal cell carcinoma, unspecified laterality (HCC) Pneumonitis Pneumonia, organism unspecified Atrial fibrillation, unspecified type (HCC) Hypertension, unspecified type Encounter for screening for COVID-19 Renal mass, right Unspecified disorder of kidney and ureter documented [facility] this encounter [facility] [place] [facility]* Diagnosis Paroxysmal atrial fibrillation (HCC)- Primary Atrial fibrillation Mitral valve insufficiency, unspecified etiology New onset a-fib (HCC) Atrial fibrillation Essential hypertension Unspecified essential hypertension Mixed hyperlipidemia 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) Encounter for screening for COVID-19 Renal mass, right Unspecified disorder of kidney and ureter documented in this encounter [facility] [place] [facility]* Diagnosis Paroxysmal atrial fibrillation (HCC)- Primary Atrial fibrillation Encounter for screening for COVID-19 Renal mass, right Unspecified disorder of kidney and ureter documented in this encounter [facility] [place] [facility]* Diagnosis Renal cell carcinoma of right kidney (HCC)- Primary Atrial fibrillation, unspecified type (HCC) Encounter for screening for COVID-19 Renal mass, right Unspecified disorder of kidney and ureter documented in this encounter [facility] [place] [facility]* Diagnosis Renal cell carcinoma of right kidney (HCC)- Primary Encounter for screening for COVID-19 Renal mass, right Unspecified disorder of kidney and ureter documented in this encounter [facility] [place] [facility]* Diagnosis Preoperative examination- Primary Preoperative examination, [...] Other abnormal glucose Coronary artery disease involving qagan tayagungin coronary artery of qagan tayagungin heart, unspecified whether angina present Encounter for screening for COVID-19 Renal mass, right Unspecified disorder of kidney and ureter documented [facility] this encounter [facility] [place] [facility]* Diagnosis Metastatic renal cell carcinoma, unspecified laterality (HCC)- Primary documented in this encounter [facility] [place] [facility]* Diagnosis Malignant neoplasm of right kidney, except renal pelvis (HCC) Malignant neoplasm of kidney, except pelvis documented [facility] this encounter [facility] [place] [facility]* Diagnosis Onset Date Resolution Status Atrial fibrillation with RVR acute Hypoxemia acute Systolic CHF, acute acute Acute exacerbation of CHF (congestive heart failure) [facility] Work Phone: Evaluation note* Diagnosis Renal cell carcinoma of right kidney (HCC)- Primary documented [facility] this encounter [facility] [place] [facility]* Diagnosis Renal cell carcinoma of right kidney (HCC)- Primary documented in this encounter [facility] [place] [facility]* Diagnosis Renal cell carcinoma of right kidney (HCC) documented in this encounter [facility] [place] [facility]* Diagnosis Screening for genitourinary condition Screening for other and unspecified genitourinary condition documented in this encounter [facility] [place] [facility]* Cardiovascular: Regular, rate and rhythm, no [...] induration. Appropriately TTP.Psychological: Appropriate mood and behavior [facility] Diagnosis Renal cell carcinoma of right kidney metastatic to other site (HCC)- Primary Paroxysmal atrial fibrillation (HCC)- Primary Atrial fibrillation Nonrheumatic mitral valve regurgitation Acute decompensated heart failure (HCC) Congestive heart failure, unspecified Essential hypertension Unspecified essential hypertension Tobacco use disorder NIMCO (obstructive sleep apnea) Obstructive sleep apnea (adult) (pediatric) [facility] [place] [facility]* Diagnosis Paroxysmal atrial fibrillation (HCC)- Primary Atrial fibrillation Nonrheumatic mitral valve regurgitation Acute decompensated heart failure (HCC) Congestive heart failure, unspecified Essential hypertension Unspecified essential hypertension Tobacco use disorder NIMCO (obstructive sleep apnea) Obstructive sleep apnea (adult) (pediatric) documented in this encounter [facility] [place] [facility]* Diagnosis Metastatic renal cell carcinoma, unspecified laterality (HCC)- Primary [facility] [place] [facility]* Diagnosis Renal cell carcinoma of right kidney (HCC)- Primary [facility] [place] [facility]* Diagnosis Renal cell carcinoma of right kidney (HCC)- Primary [facility] [place] [facility]* Diagnosis Renal cell carcinoma of right kidney (HCC)- Primary [facility] [place] [facility]* Diagnosis Malignant neoplasm of right kidney, except renal pelvis (HCC)- Primary Malignant neoplasm of kidney, except pelvis [facility] [place] [facility]* Diagnosis Onset Date Resolution Status Acute exacerbation of CHF (congestive heart failure) [facility] Work Phone: Evaluation note* Diagnosis Onset Date Resolution Status Elevated serum creatinine [place] Elevated troponin I level [place] Hypoxemia acute Systolic CHF, acute acute Acute exacerbation of CHF (congestive heart failure) [facility] Work Phone: Evaluation note* Diagnosis Onset Date Resolution Status Acute exacerbation of CHF (congestive heart failure) resolved Hypoxemia resolved Systolic CHF, acute resolved [facility] Work Phone: Evaluation note* Diagnosis Onset Date Resolution Status Acute exacerbation of CHF (congestive heart failure) resolved Hypoxemia resolved Systolic CHF, acute resolved CHF (congestive heart failure) acute Dyspnea acute [facility] Work Phone: Evaluation note* Diagnosis Onset Date Resolution Status Acute exacerbation of CHF (congestive heart failure) resolved Hypoxemia resolved Systolic CHF, acute resolved CHF (congestive heart failure) acute Dyspnea acute Thrush acute Hypertension [facility] Work Phone: Evaluation note* Diagnosis Onset Date Resolution Status Acute exacerbation of CHF (congestive heart failure) resolved Hypoxemia resolved Systolic CHF, acute resolved Thrush acute CHF (congestive heart failure) resolved Dyspnea resolved Cancer acute Renal failure acute CHF (congestive heart failure) resolved 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 Dyspnea acute [facility] Work Phone: Evaluation note* Diagnosis Onset [...] renal cell carcinoma to bone [facility] Work Phone: Evaluation note* Diagnosis Onset [...] bone chronic Renal cell cancer [facility] Work Phone: Evaluation note* Diagnosis Onset [...] systolic heart failure chronic Chronic a-fib chronic [facility] Work Phone: Evaluation note* Diagnosis Onset Date Resolution Status Renal failure acute CHF (congestive heart failure) resolved Acute on chronic renal insufficiency resolved Acute on chronic systolic heart failure resolved Acute respiratory insufficiency resolved Acute systolic heart failure resolved Hemoptysis resolved Shortness of breath resolved [facility] Work Phone: Evaluation note* Diagnosis Onset Date Resolution Status Acute on chronic renal insufficiency resolved Acute on chronic systolic heart failure resolved Acute respiratory insufficiency resolved Acute systolic heart failure resolved Hemoptysis resolved Shortness of breath resolved [facility] Work Phone: Evaluation note* Diagnosis Onset Date Resolution Status 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 Renal cell cancer chronic [facility] Work Phone: Evaluation note* Diagnosis Pre-op [...] Other abnormal glucose Coronary artery disease involving qagan tayagungin coronary artery of qagan tayagungin heart, unspecified whether angina present Acute decompensated heart failure (HCC) Congestive heart failure, unspecified Paroxysmal atrial fibrillation (HCC) Atrial fibrillation documented in this encounter [facility] Author Dr. Camacho [facility] April 14, 2022 12:43am Note Date/Time April 14, 2022 1 2:24am [facility] Medical Records Department [address] [place] [address] H&P Exam - Hospitalist 04/13/22 2334 MR#: [id number] Acct: [id number] Name: YEFRI YANEZ Rep #:[id number] : 1965 57 From: Dangelo Camacho MD [...] 79.4 H, Lymph % (Auto) 12.7 L, Winkler % (Auto) 7.1, Eos % (Auto) 0.0, [...] is subtherapeutic. Charges/Coding Visit Charges Inpatient E&M: 91236 Init Hosp L3 04/14/22 0043 <Electronically signed by Dangelo Camacho MD> Cosigner Signature (if applicable): CC: Dr. Jose Ramon Turner MD; Dr. Dangelo Camacho MD~ Signed [facility] Work Phone: History and physical note Author Dr. Lu [facility] June 28, 2022 12:52am Note Date/Time June 28, 2022 12: 20am [facility] Medical Records Department [address] [place] [address] H&P Exam - Hospitalist 06/28/22 0007 MR#: [id number] Acct: [id number] Name: YEFRI YANEZ Rep #:[id number] : 1965 57 From: Estelita Lu MD PCP: Dr. Jose Ramon Turner MD Status: ADM IN Location: [place] [id number] HPI - General General Date of Admission: 06/28/22 Date of Service: 06/28/22 Chief Complaint: Dyspnea, chest pain, wheezing, cough, recent incorrect Rx bumex. HPI Narrative The patient is a 57 y/o M w/ PMHx: Obesity, NIMCO on CPAP, PAF s/p prior cardioversion on coumadin, COPD, HTN, HLD, GERD, Metastatic renal CA s/p R nephrectomy, Tobacco use who presents to the [facility] ED on 06/27/22 with history of [...] 75.4 H, Lymph % (Auto) 16.8 L, Winkler % (Auto) 6.0, Eos % (Auto) 0.5, [...] nephrectomy, Tobacco use who presents to the [facility] ED on 06/27/22 with history of [...] spine 12/2021, 02/06/2022 right radical nephrectomy at [facility], CT scan on 03/26/2022 showed no evidence [...] 75 minutes. Charges/Coding Visit Charges Inpatient E&M: 05268 Init Hosp L3 Procedures Hospitalists Procedures: 95217 Advncd Care Plan 30 Min 06/28/22 0052 <Electronically signed by Estelita Lu MD> Cosigner Signature (if applicable): CC: Dr. Estelita Lu MD; Dr. Jose Ramon Turner MD~ Signed [facility] Work Phone: History of Present illness Narrative* 57-year-old male referred to co for cytoreductive nephrectomy * Referred by Dr. [...] between urology, medical oncology, radiation oncology at [facility] was local therapy to metastatic sites and cytoreductive nephrectomy. * 12/08/2021-echo with EF 35%, LV and RV enlargement and hypokinesis * 12/26/2021-patient completed radiation to chest wall and L4 lesion * Patient has remained on cabo * Patient was scheduled for nephrectomy with Dr. Adriana Hodge, due to insurance issues patient could not be operated on at [facility], referred to co for nephrectomy. * 01/19/2022-patient scheduled for laparoscopic nephrectomy 02/03 * 01/20/2022-patient presented to [facility] with shortness of breath * 01/27/2022-patient presented to [facility] with persistence of subjective dyspnea, expiratory wheezing * 01/29/2022-patient represented to [facility] ED with chest tightness and shortness of [...] fatigue. Appetite is normal. Normal bowel function. [id number] SJW 400 DO Work Phone: Hospital Discharge [...] torsemide if you do not already have it.[facility] Work Phone: Reason for referral (narrative)* Diagnostic Procedure Only (Routine) - Closed Specialty Diagnoses / Procedures Referred By Sujatha vasquez Referred To Contact [facility]CULAR [facility] FUNCTIONAL IMAGING Diagnoses Malignant neoplasm of kidney, unspecified laterality (HCC) Malignant neoplasm of kidney excluding renal pelvis, unspecified laterality (HCC) Procedures NM BONE WHOLE BODY BONE &/JOINT IMAGING WHOLE BODY Adriana Hodge MD [address] [place] [address] [facility] [address] [place] [address] Referral ID Status Reason Start Date Expiration Date V isits Requested Visits Authorized [id number] Closed Auto-Generate d Referral 06/26/2021 08/10/2021 2 2 [facility] for referral (narrative)* Outpatient Procedure (Routine) - Authorized Specialty Diagnoses / Procedures [facility] To [facility] Diagnoses Malignant neoplasm of right kidney, except renal pelvis (HCC) Procedures ECHO ECHO TTHRC R-T 2D W/WOM-MODE COMPL SPEC&COLR D Stephany Ceballos PA-C [address] [place] [address] [address] Referral ID Status Reason Start Date Expiration Date Visits Requested Visits Authorized [id number] Authorized Auto-Generat ed Referral 07/11/2021 07/11/2022 1 1 * Outpatient Procedure (Routine) - Authorized Specialty Diagnoses / Procedures [facility] To Contact [facility] Diagnoses Malignant neoplasm of right kidney, except renal pelvis (HCC) Procedures ECG COMPLETE ECG ROUTINE ECG W/LEAST 12 LDS W/I&R Stephany Ceballos PA-C [address] [place] [address] [address] Referral ID Status Reason Start Date Expiration Date Visits Requested Visits Authorized [id number] Authorized Auto-Generat ed Referral 07/11/2021 07/11/2022 1 1 [facility] for referral (narrative)* Reason for Referral: impaired mobility, gait training, impaired cognition/safety awareness [facility] Outpatient Procedure (Routine) - Denied Specialty Diagnoses / Procedures Referred By Contac t Referred To Contact [facility] Diagnoses Acute decompensated heart failure (HCC) Paroxysmal atrial fibrillation (HCC) Procedures ECHO LIMITED ECHO TRANSTHORAC R-T 2D W/WO M-MODE REC COMP Sayra Tello MD [address] [facility] [place] [address] [facility] [address] [place] [address] Referral ID Status Reason Start Date Expiration Date V isits Requested Visits Authorized [id number] Denied Auto-Generate d Referral 02/16/2022 02/16/2023 1 0 [facility] for referral (narrative)* Diagnostic Procedure Only (Routine) - Authorized Specialty Diagnoses / Procedures Referred By [facility] t Referred To Contact [facility]LECULAR [facility] FUNCTIONAL IMAGING Diagnoses Renal cell carcinoma of right kidney (HCC) Procedures NM BONE WHOLE BODY BONE &/JOINT IMAGING WHOLE BODY Haylee Wilburn MD [address] [place] [address] [facility] [address] [place] [address] Referral ID Status Reason Start Date Expiration Date Visits Requested Visits Authorized [id number] Authorized Auto-Generat ed Referral 03/11/2022 04/10/2023 1 1 * MRI/CT (Routine) - Authorized Specialty Diagnoses / Procedures [facility] Ref[facility] To Contact CT [facility] Diagnoses Renal cell carcinoma of right kidney (HCC) Procedures CT CHEST W IVCON DIAGNOSTIC COMPUTED TOMOGRAPHY THORAX W/CONTRAST Haylee Wilburn MD [address] [place] [address] [address] Referral ID Status Reason Start Date Expiration Date Visits Requested Visits Authorized [id number] Authorized Auto-Generat ed Referral 03/11/2022 04/10/2023 1 1 * MRI/CT (Routine) - Authorized Specialty Diagnoses / Procedures [facility] Ref[facility] To Contact CT IM[facility] Diagnoses Renal cell carcinoma of right kidney (HCC) Procedures CT ABD/PEL W IVCON CT ABD & PELVIS W/CONTRAST Haylee Wilburn MD [address] [place] [address] Referral ID Status Reason Start Date Expiration Date Visits Requested Visits Authorized [id number] Authorized Auto-Generat ed Referral 03/11/2022 04/26/2022 1 1 [facility] for referral (narrative)* Outpatient Procedure (Routine) - Closed Specialty Diagnoses / Procedures [facility] Diagnoses Acute decompensated heart failure (HCC) Paroxysmal atrial fibrillation (HCC) Procedures ECHO LIMITED ECHO TRANSTHORAC R-T 2D W/WO M-MODE REC COMP Sayra Tello MD [address], [address] [place] [address] [facility] [address] [place] [address] Referral ID Status Reason Start Date Expiration Date V isits Requested Visits Authorized [id number] Closed Patient Cleared - INN Insurance Found 02/19/2022 03/07/2022 1 1 [facility] for referral (narrative)No reason for referral information availableWLouis [facility] Work Phone: Reason for visit Narrative* Diagnostic Procedure Only (Routine) - Closed Specialty Diagnoses / Procedures Referred By Sujatha Referred To Contact [facility] Diagnoses Malignant neoplasm of kidney, unspecified laterality (HCC) Malignant neoplasm of kidney excluding renal pelvis, unspecified laterality (HCC) Procedures NM BONE WHOLE BODY BONE &/JOINT IMAGING WHOLE BODY Adriana Hodge MD [address] [place] [address] [facility] [address] [place] [address] Referral ID Status Reason Start Date Expiration Date V isits Requested Visits Authorized [id number] Closed Auto-Generate d Referral 06/26/2021 08/10/2021 2 2 [facility] for visit Narrative* Auth/Cert Specialty Diagnoses / Procedures [facility] Referred To Contact Diagnoses Nonrheumatic mitral valve regurgitation Procedures CATH PLMT L HRT & ARTS W/NJX & ANGIO IMG S&I PRQ TRLUML CORONARY STENT W/ANGIO ONE ART/BRNCH CORONARY ANGIO W CATH PLACE W IMAGE INJECT & INTERP W LT HEART CATH W INJECT LT VENTRGRAPHY INSERT INTRACORONARY STENT-PER MAJOR VESSEL OR BRANCH [facility] Life Enrichment Manager [address] [place] [address] Referral ID Status Reason Start Date Expiration Date Visits Re quested Visits Authorized [id number] 1 1 [facility] for visit Narrative* Outpatient Procedure (Routine) - Closed Specialty Diagnoses / Procedures Referred By Sujatha t Referred To Contact [facility] Diagnoses Malignant neoplasm of right kidney, except renal pelvis (HCC) Procedures ECG COMPLETE ECG ROUTINE ECG W/LEAST 12 LDS W/I&R Stephany Ceballos PA-C [address] [place] [address] [facility] [address] [address] Referral ID Status Reason Start Date Expiration Date V isits Requested Visits Authorized [id number] Closed Auto-Generate d Referral 07/11/2021 07/11/2022 1 1 [facility] for visit Narrative* Auth/Cert Specialty Diagnoses / Procedures Referred By Sujatha Referred To Contact HOSP INPATIENT Diagnoses Paroxysmal atrial fibrillation Acute decompensated heart failure (HCC) Paroxysmal atrial fibrillation (HCC) Procedures INITIAL HOSPITAL CARE/DAY 70 MINUTES Hosp Main [address] [place] [address] Referral ID Status Reason Start Date Expiration Date Visits Re quested Visits Authorized [id number] 1 1 [facility] for visit Narrative* Diagnostic Procedure Only (Routine) - Closed Specialty Diagnoses / Procedures Referred By Sujatha Referred To Contact [facility] Diagnoses Renal cell carcinoma of right kidney (HCC) Procedures NM BONE WHOLE BODY BONE &/JOINT IMAGING WHOLE BODY Haylee Wilburn MD [address] [place] [address] [facility] [address] [place] [address] Referral ID Status Reason Start Date Expiration Date V isits Requested Visits Authorized [id number] Closed Auto-Generate d Referral 03/11/2022 04/10/2023 1 2 [facility] for visit Narrative* Outpatient Procedure (Routine) - Closed Specialty Diagnoses / Procedures Referred By Contac t Referred [facility] Diagnoses Acute decompensated heart failure (HCC) Paroxysmal atrial fibrillation (HCC) Procedures ECHO LIMITED ECHO TRANSTHORAC R-T 2D W/WO M-MODE REC COMP Sayra Tello MD [address], [address] [place] [address] [facility] [address] [place] [address] Referral ID Status Reason Start Date Expiration Date V isits Requested Visits Authorized [id number] Closed Patient Cleared - INN Insurance Found 02/19/2022 03/07/2022 1 1 [facility] Summary Purpose Family History No [...] Documents on File Type Date Recorded Patient Junior Automation Engineer Expl anation Advance Directive(s) 02/05/2020 6:22 PM Advance Directive(s) 11/14/2019 1:53 PM Documents on File Type Date Recorded Patient Junior Automation Engineer Expl anation Advance Directive(s) 02/05/2020 6:22 PM Advance Directive(s) 11/14/2019 1:53 PM Documents on File Type Date Recorded Patient Junior Automation Engineer Expl anation Advance Directive(s) 06/26/2021 2:39 PM Advance Directive(s) 02/05/2020 6:22 PM Advance Directive(s) 11/14/2019 1:53 PM Documents on File Type Date Recorded Patient Junior Automation Engineer Expl anation Advance Directive(s) 06/26/2021 2:39 PM Advance Directive(s) 02/05/2020 6:22 PM Advance Directive(s) 11/14/2019 1:53 PM Advance Directive Response Recorded Date/ Time Living Will No June 04, 2019 5:40pm Power of Spinning Frame Cleaner No June 03 5:40pm Documents on File Type Date Recorded Patient Junior Automation Engineer Expl anation Advance Directive(s) 07/31/2021 5:47 PM Advance Directive(s) 06/26/2021 2:39 PM Advance Directive(s) 02/05/2020 6:22 PM Advance Directive(s) 11/14/2019 1:53 PM Documents on File Type Date Recorded Patient Junior Automation Engineer Expl anation Advance Directive(s) 08/05/2021 5:50 AM Advance Directive(s) 07/31/2021 5:47 PM Advance Directive(s) 06/26/2021 2:39 PM Advance Directive(s) 02/05/2020 6:22 PM Advance Directive(s) 11/14/2019 1:53 PM Documents on File Type Date Recorded Patient Junior Automation Engineer Expl anation Advance Directive(s) 08/05/2021 5:50 AM Advance Directive(s) 07/31/2021 5:47 PM Advance Directive(s) 06/26/2021 2:39 PM Advance Directive(s) 02/05/2020 6:22 PM Advance Directive(s) 11/14/2019 1:53 PM Documents on File Type Date Recorded Patient Junior Automation Engineer Expl anation Advance Directive(s) 08/17/2021 3:47 PM Advance Directive(s) 08/05/2021 5:50 AM Advance Directive(s) 07/31/2021 5:47 PM Advance Directive(s) 06/26/2021 2:39 PM Advance Directive(s) 02/05/2020 6:22 PM Advance Directive(s) 11/14/2019 1:53 PM Documents on File Type Date Recorded Patient Junior Automation Engineer Expl anation Advance Directive(s) 08/17/2021 3:47 PM Advance Directive(s) 08/05/2021 5:50 AM Advance Directive(s) 07/31/2021 5:47 PM Advance Directive(s) 06/26/2021 2:39 PM Advance Directive(s) 02/05/2020 6:22 PM Advance Directive(s) 11/14/2019 1:53 PM Documents on File Type Date Recorded Patient Junior Automation Engineer Expl anation Advance Directive(s) 09/02/2021 6:28 PM [...] Documents on File Type Date Recorded Patient Junior Automation Engineer Expl anation Advance Directive(s) 09/02/2021 6:28 PM [...] Documents on File Type Date Recorded Patient Junior Automation Engineer Expl anation Advance Directive(s) 09/23/2021 1:52 PM [...] Documents on File Type Date Recorded Patient Junior Automation Engineer Expl anation Advance Directive(s) 09/23/2021 1:52 PM [...] Documents on File Type Date Recorded Patient Junior Automation Engineer Expl anation Advance Directive(s) 10/06/2021 1:03 PM Advance Directive(s) 09/23/2021 1:52 PM Advance Directive(s) 09/02/2021 6:28 PM Advance Directive(s) 08/17/2021 3:47 PM Advance Directive(s) 08/05/2021 5:50 AM Advance Directive(s) 07/31/2021 5:47 PM Advance Directive(s) 06/26/2021 2:39 PM Advance Directive(s) 02/05/2020 6:22 PM Advance Directive(s) 11/14/2019 1:53 PM Advance Directive Response Recorded Date/ Time Living Will No December 07 2:19pm Power of Spinning Frame Cleaner No December 07 2:19pm Advance Directive Response Recorded Date/ Time Living Will No January 20 7:21pm Power of Spinning Frame Cleaner No January 20, 2022 7:21pm Advance Directive Response Recorded Date/ Time Name of Medical Power of Spinning Frame Cleaner January 29, 2022 11:59am Living Will No January 29 11:59am Power of Spinning Frame Cleaner Yes January 29, 2022 11:59am Advance Directive Response Recorded Date/ Time Name of Medical Power of Spinning Frame Cleaner January 29, 2022 11:59am Name of Medical Power of Spinning Frame Cleaner MIYA WHITEHEADPita YANEZ- April 13, 2022 10:43pm Living Will No April 13 10:43pm Power of Spinning Frame Cleaner Yes April 13, 2022 10:43pm Advance Directive Response Recorded Date/ Time Name of Medical Power of Spinning Frame Cleaner January 29, 2022 11:59am Name of Medical Power of Spinning Frame Cleaner Miya gilliam April 14, 2022 1:15am Living Will No April 14 1:15am Power of Spinning Frame Cleaner Yes April 14, 2022 1:15am Advance Directive Response Recorded Date/ Time Name of Medical Power of Spinning Frame Cleaner January 29, 2022 12:59pm Name of Medical Power of Spinning Frame Cleaner Miya gilliam April 14, 2022 2:15am Name of Medical Power of Spinning Frame Cleaner miya yanez May 18, 2022 3:35pm Living Will Yes May 18, 2022 3:35pm Power of Spinning Frame Cleaner Yes May 18 3:35pm Advance Directive Response Recorded Date/ Time Name of Medical Power of Spinning Frame Cleaner January 29, 2022 12:59pm Name of Medical Power of Spinning Frame Cleaner Miya gilliam April 14, 2022 2:15am Name of Medical Power of Spinning Frame Cleaner Miya Yanez May 18, 2022 7:01pm Living Will Yes May 18, 2022 7:01pm Power of Spinning Frame Cleaner Yes May 18 7:01pm Advance Directive Response Recorded Date/ Time Name of Medical Power of Spinning Frame Cleaner Miya gilliam April 14, 2022 2:15am Name of Medical Power of Spinning Frame Cleaner Miya Yanez May 18, 2022 7:01pm Name of Medical Power of Spinning Frame Cleaner June 27, 2022 11:12pm Living Will Yes June 27, 2022 11:12pm Power of Spinning Frame Cleaner Yes June 27 11:12pm Advance Directive Response Recorded Date/ Time Name of Medical Power of Spinning Frame Cleaner Miya gilliam April 14, 2022 2:15am Name of Medical Power of Spinning Frame Cleaner Miya Renata May 18, 2022 7:01pm Name of Medical Power of Spinning Frame Cleaner Miya Yanez June 28, 2022 1:12am Living Will No June 28, 2022 1:12am Power of Spinning Frame Cleaner Yes June 28 1:12am Advance Directive Response Recorded Date/ Time Name of Medical Power of Spinning Frame Cleaner Miya Yanez May 18, 2022 7:01pm Name of Medical Power of Spinning Frame Cleaner Miya Yanez June 28, 2022 1:12am Living Will No June 28, 2022 1:12am Power of Spinning Frame Cleaner Yes June 28 1:12am Advance Directive Response Recorded Date/ Time Name of Medical Power of Spinning Frame Cleaner Lena Yanez December 15, 2022 4:41pm Living Will No December 15 4:41pm Power of Spinning Frame Cleaner Yes December 15, 2022 4:41pm Advance Directive Response Recorded Date/ Time Name of Medical Power of Spinning Frame Cleaner Lena Yanez December 15, 2022 3:41pm Living Will No December 15 3:41pm Power of Spinning Frame Cleaner Yes December 15, 2022 3:41pm Advance Directive Response Recorded Date/ Time Living Will No December 15 3:41pm Power of Spinning Frame Cleaner Yes December 15, 2022 3:41pm Advance Directive Response Recorded Date/ Time Living Will No December 15 4:41pm Power of Spinning Frame Cleaner Yes December 15, 2022 4:41pm Date Activated [...] Do you have a Healthcare Power of Spinning Frame Cleaner? Yes December 15, 2022 4:41pm Advance Directive Response Recorded Date/ Time Do you have a Healthcare Power of Spinning Frame Cleaner? Yes October 18, 2024 9:12pm Advance Directive Response Recorded Date/ Time Do you have a Healthcare Power of Spinning Frame Cleaner? Yes October 19, 2024 5:19am Name of Medical Power of Spinning Frame Cleaner Miya Yanez October 19, 2024 5:19am Reason for Referral Specialty Diagnoses / Procedures Referred By Contac t Referred To Contact CT IMAGING Diagnoses Malignant neoplasm of kidney, unspecified laterality (HCC) Malignant neoplasm of kidney excluding renal pelvis, unspecified laterality (HCC) Procedures CT ABD/PEL WO IVCON CT ABD & PELVIS W/O CONTRAST Adriana Hodge MD [address] [place] [address] Ct Imaging Referral ID Status Reason Start Date Expiration Date Visits Requested Visits Authorized [id number] Pending Review Auto-Generat ed Referral 06/23/2021 07/23/2022 1 1 Specialty Diagnoses / Procedures Referred By Contac t Referred To Contact CT IMAGING Diagnoses Malignant neoplasm of kidney, unspecified laterality (HCC) Malignant neoplasm of kidney excluding renal pelvis, unspecified laterality (HCC) Procedures CT ABD/PEL W IVCON CT ABD & PELVIS W/CONTRAST Adriana Hodge MD [address] [place] [address] Ct Imaging Referral ID Status Reason Start Date Expiration Date Visits Requested Visits Authorized [id number] Pending Review Auto-Generat ed Referral 06/23/2021 07/23/2022 1 1 Specialty Diagnoses / Procedures Referred By Contac t Referred To Contact MOLECULAR & FUNCTIONAL IMAGING Diagnoses Malignant neoplasm of kidney, unspecified laterality (HCC) Malignant neoplasm of kidney excluding renal pelvis, unspecified laterality (HCC) Procedures NM BONE WHOLE BODY BONE &/JOINT IMAGING WHOLE BODY Adriana Hodge MD [address] [place] [address] Molecular & Functional Imaging [address] [place] [address] Referral ID Status Reason Start Date Expiration Date Visits Requested Visits Authorized [id number] Pending Review Auto-Generat ed Referral 06/23/2021 07/23/2022 1 1 Specialty Diagnoses / Procedures Referred By Contac t Referred To Contact Oncology Diagnoses Malignant neoplasm of kidney, unspecified laterality (HCC) Malignant neoplasm of kidney excluding renal pelvis, unspecified laterality (HCC) Procedures CONSULT TO ONCOLOGY OFFICE/OUTPATIENT NEW HIGH MDM 60-74 MINUTES Adriana Hodge MD [address] [place] [address] Referral ID Status Reason Start Date Expiration Date Visits Requested Visits Authorized [id number] Pending Review PCP Requested Referral 06/23/2021 06/23/2022 1 1 Specialty Diagnoses / Procedures Referred By Contac t Referred To Contact RADIO CT SCAN [facility] Diagnoses Malignant neoplasm of kidney, unspecified laterality (HCC) Malignant neoplasm of kidney excluding renal pelvis, unspecified laterality (HCC) Procedures CT ABD/PEL W IVCON CT ABD & PELVIS W/CONTRAST Adriana Hodge MD [address] [place] [address] Scan [facility] [address] [place] [address] Referral ID Status Reason Start Date Expiration Date V isits Requested Visits Authorized [id number] Closed Auto-Generate d Referral 06/26/2021 08/10/2021 1 1 Specialty Diagnoses / Procedures Referred By Contac t Referred To Contact MR IMAGING Diagnoses Malignant neoplasm of kidney excluding renal pelvis, unspecified laterality (HCC) Renal cell carcinoma, unspecified laterality (HCC) Procedures MRI BRAIN WO/W IVCON MRI BRAIN BRAIN STEM W/O W/CONTRAST MATERIAL Kenneth Chester MD [address] [place] [address] Mr Imaging Referral ID Status Reason Start Date Expiration Date Visits Requested Visits Authorized [id number] Authorized Auto-Generat ed Referral 07/14/2021 08/28/2021 1 1 Specialty Diagnoses / Procedures Referred By Contac t Referred To Contact CT IMAGING Diagnoses Malignant neoplasm of right kidney, except renal pelvis (HCC) Renal cell carcinoma, unspecified laterality (HCC) Procedures CT CHEST W IVCON DIAGNOSTIC COMPUTED TOMOGRAPHY THORAX W/CONTRAST Kenneth Chester MD [address] [place] [address] Ct Imaging Referral ID Status Reason Start Date Expiration Date V isits Requested Visits Authorized [id number] Closed Auto-Generate d Referral 07/14/2021 08/28/2021 1 1 Referral ID Status Reason Start Date Expiration Date V isits Requested Visits Authorized [id number] Closed Auto-Generate d Referral 07/14/2021 08/28/2021 1 1 Specialty Diagnoses / Procedures Referred By Contac t Referred To Contact CT IMAGING Diagnoses Malignant neoplasm of right kidney, except renal pelvis (HCC) Malignant neoplasm of kidney excluding renal pelvis, unspecified laterality (HCC) Procedures CT ABD/PEL W IVCON CT ABD & PELVIS W/CONTRAST Kenneth Chester MD [address] [place] [address] Ct Imaging Referral ID Status Reason Start Date Expiration Date Visits Requested Visits Authorized [id number] Pending Review Auto-Generat ed Referral 07/28/2021 08/27/2022 1 1 Specialty Diagnoses / Procedures Referred By Contac t Referred To Contact MR IMAGING Diagnoses Other specified disorders of kidney and ureter Procedures MRI KIDNEY WO/W IVCON MRI ABDOMEN W/O & W/CONTRAST MATERIAL Godfrey Ohara APRN.CNP [address], [address] [address] Mr Imaging Referral ID Status Reason Start Date Expiration Date Visits Requested Visits Authorized [id number] Pending Review Auto-Generat ed Referral 08/08/2021 09/07/2022 1 1 Specialty Diagnoses / Procedures Referred By Contac t Referred To Contact CT IMAGING Diagnoses Malignant neoplasm of right kidney, except renal pelvis (HCC) Malignant neoplasm of kidney excluding renal pelvis, unspecified laterality (HCC) Procedures CT CHEST W IVCON DIAGNOSTIC COMPUTED TOMOGRAPHY THORAX W/CONTRAST Stephany Ceballos PA-C [address] [place] [address] Ct Imaging Referral ID Status Reason Start Date Expiration Date Visits Requested Visits Authorized [id number] Pending Review Auto-Generat ed Referral 08/21/2021 09/19/2022 1 1 Specialty Diagnoses / Procedures Referred By Contac t Referred To Contact CT IMAGING Diagnoses Malignant neoplasm of right kidney, except renal pelvis (HCC) Malignant neoplasm of kidney excluding renal pelvis, unspecified laterality (HCC) Procedures CT ABD/PEL W IVCON CT ABD & PELVIS W/CONTRAST Stephany Ceballos PA-C [address] [place] [address] Ct Imaging Referral ID Status Reason Start Date Expiration Date Visits Requested Visits Authorized [id number] Pending Review Auto-Generat ed Referral 08/21/2021 09/19/2022 1 1 Specialty Diagnoses / Procedures Referred By Contac t Referred To Contact CT IMAGING Diagnoses Malignant neoplasm of right kidney, except renal pelvis (HCC) Procedures CT CHEST W IVCON DIAGNOSTIC COMPUTED TOMOGRAPHY THORAX W/CONTRAST Godfrey Ohara, ETIQUETTE TEACHER.BELLOWS FILLER [address] [place] [address] Ct Imaging Referral ID Status Reason Start Date Expiration Date Visits Requested Visits Authorized [id number] Pending Review Auto-Generat ed Referral 10/16/2021 09/26/2022 1 1 Specialty Diagnoses / Procedures Referred By Contac t Referred To Contact CT IMAGING Diagnoses Malignant neoplasm of right kidney, except renal pelvis (HCC) Procedures CT ABD/PEL W IVCON CT ABD & PELVIS W/CONTRAST Godfrey Ohara, ETIQUETTE TEACHER.BELLOWS FILLER [address] [place] [address] Ct Imaging Referral ID Status Reason Start Date Expiration Date Visits Requested Visits Authorized [id number] Pending Review Auto-Generat ed Referral 10/16/2021 09/26/2022 1 1 Specialty Diagnoses / Procedures Referred By Contac t Referred To Contact CT IMAGING Diagnoses SOB (shortness of breath) Procedures CT CHEST W IVCON PE DIAGNOSTIC COMPUTED TOMOGRAPHY THORAX W/CONTRAST Daksha Melo PA-C [address] [place] [address] Ct Imaging Referral ID Status Reason Start Date Expiration Date Visits Requested Visits Authorized [id number] Pending Review Auto-Generat ed Referral 09/02/2021 10/02/2022 1 1 Specialty Diagnoses / Procedures Referred By Contac t Referred To Contact CT IMAGING Diagnoses Malignant neoplasm of right kidney, except renal pelvis (HCC) Procedures CT CHEST W IVCON DIAGNOSTIC COMPUTED TOMOGRAPHY THORAX W/CONTRAST Adriana Hodge MD [address] [place] [address] Ct Imaging Referral ID Status Reason Start Date Expiration Date Visits Requested Visits Authorized [id number] Closed Financial Clearance Required - OON Payor [...] ABD & PELVIS W/[place] [address] [place] [address] [address] [address] Imaging Referral ID Status Reason Start Date Expiration Date Visits Requested Visits Authorized [id number] Closed Financial Clearance Required - OON Payor OON Notification Letter Clearance Not Met - Pt Rescheduled/Canc elled/Chose Not to Proceed OON/Self Pay Override 10/22/2021 11/21/2022 1 0 Specialty Diagnoses / Procedures Referred By Contac t Referred To Contact Diagnoses Renal cell carcinoma of right kidney (HCC) Procedures REFER TO PACC - PRE ANESTHESIA CONSULTATION CLINIC OFFICE/OUTPATIENT [facility] MDM 60-74 MINUTES Adriana Hodge MD [address] [place] [address] [place] [address] Referral ID Status Reason Start Date Expiration Date V isits Requested Visits Authorized [id number] Denied PCP Requested Referral 12/30/2021 12/30/2022 1 0 Specialty Diagnoses / Procedures Referred By Contac t Referred To Contact [facility] Diagnoses Renal cell carcinoma of right kidney (HCC) Procedures ECG COMPLETE ECG ROUTINE ECG W/LEAST 12 LDS W/I&R Adriana Hodge MD [address] [place] [address] [facility] [address] [place] [id number] Referral ID Status Reason Start Date Expiration Date V isits Requested Visits Authorized [id number] Denied Auto-Generate d Referral 12/30/2021 12/30/2022 1 0 Medications Administered Section Inactive Administered Medications - up to 3 most recent administrations Medication Order MAR Action Action Date Dose Rate Site INV CABOZANTINIB 40 mg TABLET ([facility] 1820/20-983) 40 mg, ORAL, ONCE, 1 [...] Action Date Dose Rate Site INV NIVOLUMAB ([facility] 1820/20-983) 480 mg in NaCl 0.9% [...] Rate Site INV CABOZANTINIB 20 mg TABLET ([facility] 1820/20-983) 20 mg, ORAL, ONCE, 1 [...] CHRONIC HEART FAILURE AECHF AECHF AECHF [facility] 04-13-22 CHF and AFIB (NO CONSULT) [...] CHRONIC HEART FAILURE AECHF AECHF AECHF [facility] 04-13-22 CHF and AFIB (NO CONSULT) [...] bone Chief Complaint AECHF AECHF AECHF [facility] 04-13-22 CHF and AFIB (NO CONSULT) [...] DATE CREATED AUTHOR AUTHOR'S ORGANIZ ATION 02/05/2022 [facility] DATE CREATED AUTHOR AUTHOR'S ORGANIZ ATION 03/17/2022 [facility] DATE CREATED AUTHOR AUTHOR'S ORGANIZ ATION 04/04/2022 [facility] DATE CREATED AUTHOR AUTHOR'S ORGANIZ ATION 04/25/2022 [facility] DATE CREATED AUTHOR AUTHOR'S ORGANIZ ATION 05/18/2022 [facility] DATE CREATED AUTHOR AUTHOR'S ORGANIZ ATION 07/19/2022 [facility] DATE CREATED AUTHOR AUTHOR'S ORGANIZ ATION 11/10/2024 [facility] Care Teams (unrecognized sec tion [...] of Kin Active Start: June 19, 2021 Electronic Scale Subassembler Relationship Specialty [place] [address] [place] [address] PCP - General Internal Medicine 10/10/18 Electronic Scale Subassembler Relationship Specialty [place] [address] [place] [address] PCP - General Internal Medicine 10/10/18 Electronic Scale Subassembler Relationship Specialty [place] [address] [place] [address] PCP - General Internal Medicine 10/10/18 Electronic Scale Subassembler Relationship Specialty Start [place] [address] [place] [address] PCP - General Internal Medicine 10/10/18 Electronic Scale Subassembler Relationship Specialty Start [place] [address] [place] [address] PCP - General Internal Medicine 10/10/18 Electronic Scale Subassembler Relationship Specialty Start [place] [address] [place] [address] PCP - General Internal Medicine 10/10/18 Electronic Scale Subassembler Relationship Specialty Start [place] [address] [place] [address] PCP - General Internal Medicine 10/10/18 Electronic Scale Subassembler Relationship Specialty Start [place] [address] [place] [address] PCP - General Internal Medicine 10/10/18 Electronic Scale Subassembler Relationship Specialty Start [place] [address] [place] [address] PCP - General Internal Medicine 10/10/18 Electronic Scale Subassembler Relationship Specialty Start [place] [address] [place] [address] PCP - General Internal Medicine 10/10/18 Electronic Scale Subassembler Relationship Specialty Start Date End Date [place], [place] [address] [place] [address] PCP - General Internal Medicine 10/10/18 Electronic Scale Subassembler Relationship Specialty Start [place] [address] [place] [address] PCP - General Internal Medicine 10/10/18 Electronic Scale Subassembler Relationship Specialty Start [place] [address] [place] [address] PCP - General Internal Medicine 10/10/18 Electronic Scale Subassembler Relationship Specialty Start [place] [address] [place] [address] PCP - General Internal Medicine 10/10/18 Electronic Scale Subassembler Relationship Specialty Start Date End Date Daksha Turner MD [address] [place] [address], [place] [address] PCP - General Family Practice 07/18/21 Electronic Scale Subassembler Relationship Specialty Start Date End Date Daksha Turner MD [address] [place] [address], [place] [address] PCP - General Family Practice 07/18/21 Electronic Scale Subassembler Relationship Specialty Start Date End Date Daksha Turner MD [address] [place] [address], [place] [address] PCP - General Family Practice 07/18/21 Electronic Scale Subassembler Relationship Specialty Start Date End Date Daksha Turner MD [address] [place] [address], [place] [address] PCP - General Family Practice 07/18/21 Electronic Scale Subassembler Relationship Specialty Start Date End Date Daksha Turner MD [address] [place] [address], [place] [address] PCP - General Family Practice 07/18/21 Electronic Scale Subassembler Relationship Specialty Start Date End Date Daksha Turner MD [address] [place] [address] PCP - General Family Practice 07/18/21 Electronic Scale Subassembler Relationship Specialty Start Date End Date Daksha Turner MD [address] [place] [address] PCP - General Family Practice 07/18/21 Electronic Scale Subassembler Relationship Specialty Start Date End Date Daksha Turner MD [address] [place] [address] PCP - General Family Practice 07/18/21 Electronic Scale Subassembler Relationship Specialty Start Date End Date Daksha Turner MD [address] [place] [address] PCP - General Family Practice 07/18/21 Electronic Scale Subassembler Relationship Specialty Start Date End Date Daksha Turner MD [address] [place] [address] PCP - General Family Practice 07/18/21 Electronic Scale Subassembler Relationship Specialty Start Date End Date Daksha Turner MD [address] [place] [address] PCP - General Family Practice 07/18/21 Electronic Scale Subassembler Relationship Specialty Start Date End Date Daksha Turner MD [address] [place] [address] PCP - General Family Practice 07/18/21 Electronic Scale Subassembler Relationship Specialty Start Date End Date Daksha Turner MD [address] [place] [address] PCP - General Family Practice 07/18/21 Electronic Scale Subassembler Relationship Specialty Start Date End Date Daksha Turner MD [address] [place] [address] PCP - General Family Practice 07/18/21 Electronic Scale Subassembler Relationship Specialty Start Date End Date Daksha Turner MD [address] [place] [address] PCP - General Family Practice 07/18/21 Electronic Scale Subassembler Relationship Specialty Start Date End Date Daksha Turner MD [address] [place] [address] PCP - General Family Practice 07/18/21 Electronic Scale Subassembler Relationship Specialty Start Date End Date Daksha Turner MD [address] [place] [address] PCP - General Family Practice 07/18/21 Electronic Scale Subassembler Relationship Specialty Start Date End Date Daksha Turner MD [address] [place] [address] PCP - General Family Practice 07/18/21 Electronic Scale Subassembler Relationship Specialty Start Date End Date Daksha Turner MD [address] [place] [address] PCP - General Family Practice 07/18/21 Electronic Scale Subassembler Relationship Specialty Start Date End Date Daksha Turner MD [address] [place] [address] PCP - General Family Practice 07/18/21 Electronic Scale Subassembler Relationship Specialty Start Date End Date Daksha Turner MD [address] [place] [address] PCP - General Family Practice 07/18/21 Electronic Scale Subassembler Relationship Specialty Start Date End Date Daksha Turner MD [address] [place] [address] PCP - General Family Practice 07/18/21 Electronic Scale Subassembler Relationship Specialty Start Date End Date Daksha Turner MD [address] [place] [address] PCP - General Family Practice 07/18/21 Electronic Scale Subassembler Relationship Specialty Start Date End Date Daksha Turner MD [address] [place] [address] PCP - General Family Practice 07/18/21 Golias, Sary, SOAP PRESS FEEDER Software Security Architect Oncology 08/11/21 Electronic Scale Subassembler Relationship Specialty Start Date End Date Daksha Turner MD [address] [place] [address] PCP - General Family Practice 07/18/21 Golias, Sary, SOAP PRESS FEEDER Software Security Architect Oncology 08/11/21 Electronic Scale Subassembler Relationship Specialty Start Date End Date Daksha Turner MD [address] [place] [address] PCP - General Family Practice 07/18/21 Golias, Sary, SOAP PRESS FEEDER Software Security Architect Oncology 08/11/21 Electronic Scale Subassembler Relationship Specialty Start Date End Date Daksha Turner MD [address] [place] [address] PCP - General Family Practice 07/18/21 Golias, Sary, SOAP PRESS FEEDER Software Security Architect Oncology 08/11/21 Electronic Scale Subassembler Relationship Specialty Start Date End Date Daksha Turner MD [address] [place] [address] PCP - General Family Practice 07/18/21 Golias, Sary, SOAP PRESS FEEDER Software Security Architect Oncology 08/11/21 Electronic Scale Subassembler Relationship Specialty Start Date End Date Daksha Turner MD [address] [place] [address] PCP - General Family Practice 07/18/21 Sary Jonas, KINDRED [facility] Software Security Architect Oncology 08/11/21 Llao Acevedo MD [address] [place] [address] Primary Staff Physician Cardiology 08/19/21 Electronic Scale Subassembler Relationship Specialty Start Date End Date Daksha Turner MD [address] [place], [place] [id number] PCP - General Family Practice 07/18/21 Sary Jonas [facility] Software Security Architect Oncology 08/11/21 Lalo Acevedo MD [address] [place] [address] Primary Staff Physician Cardiology 08/19/21 Electronic Scale Subassembler Relationship Specialty Start Date End Date Daksha Turner MD [address] [place], [place] 396711 PCP - General Family Practice 07/18/21 Sary Jonas, [facility] Software Security Architect Oncology 08/11/21 Lalo Acevedo MD [address] [place] [address] Primary Staff Physician Cardiology 08/19/21 Electronic Scale Subassembler Relationship Specialty Start Date End Date Daksha Turner MD [address] [place], [place] 856111 PCP - General Family Practice 07/18/21 Sary Jonas [facility] Software Security Architect Oncology 08/11/21 Lalo Acevedo MD [address] [place] [address] Primary Staff Physician Cardiology 08/19/21 Electronic Scale Subassembler Relationship Specialty Start Date End Date Daksha Turner MD [address] [facility] [place], [place] [id number] PCP - General Family Practice 07/18/21 Sary Jonas, [facility] Software Security Architect Oncology 08/11/21 Lalo Acevedo MD [address] [place] [address] Primary Staff Physician Cardiology 08/19/21 Electronic Scale Subassembler Relationship Specialty Start Date End Date Daksha Turner MD [address] [place], [place] 0[address]81 PCP - General Family Practice 07/18/21 Sary Jonas, [facility] Software Security Architect Oncology 08/11/21 Lalo Acevedo MD [address] [place] [address] Primary Staff Physician Cardiology 08/19/21 Electronic Scale Subassembler Relationship Specialty Start Date End Date Daksha Turner MD [address] [place] [address] PCP - General Family Practice 07/18/21 Sary Jonas, [facility] Software Security Architect Oncology 08/11/21 Lalo Acevedo MD [address] [place] [address] Primary Staff Physician Cardiology 08/19/21 Electronic Scale Subassembler Relationship Specialty Start Date End Date Daksha Turner MD [address] [place] [address] PCP - General Family Practice 07/18/21 Sary Jonas, [facility] Software Security Architect Oncology 08/11/21 Lalo Acevedo MD [address] [place] [address] Primary Staff Physician Cardiology 08/19/21 Electronic Scale Subassembler Relationship Specialty Start Date End Date Daksha Turner MD [address] [facility] [place] [address] PCP - General Family Practice 07/18/21 Sary Jonas, [facility] Software Security Architect Oncology 08/11/21 Lalo Acevedo MD [address] [place], [place] [id number] Primary Staff Physician Cardiology 08/19/21 Electronic Scale Subassembler Relationship Specialty Start Date End Date Daksha Turner MD [address] [facility]ITALMichel[facility] [place], [place] 336711 PCP - General Family Practice 07/18/21 Sary Jonas, [facility] Software Security Architect Oncology 08/11/21 Lalo Acevedo MD [address] [place], [place] [id number] Primary Staff Physician Cardiology 08/19/21 Electronic Scale Subassembler Relationship Specialty Start Date End Date Daksha Turner MD [address] [place], [place] 097571 PCP - General Family Practice 07/18/21 Sary Jonas, [facility] Software Security Architect Oncology 08/11/21 Lalo Acevedo MD [address] [place], [place] [id number] Primary Staff Physician Cardiology 08/19/21 Rahul Knight, RN Research Nurse 09/03/21 Electronic Scale Subassembler Relationship Specialty Start Date End Date Daksha Turner MD [address] [place], [place] [id number] PCP - General Family Practice 07/18/21 Sary Jonas, [facility] Software Security Architect Oncology 08/11/21 Lalo Acevedo MD [address] [place], [place] [id number] Primary Staff Physician Cardiology 08/19/21 Rahul Knight, RN Research Nurse 09/03/21 Electronic Scale Subassembler Relationship Specialty Start Date End Date Daksha Turner MD [address] [facility] [place], [place] 265981 PCP - General Family Practice 07/18/21 Sary Jonas, [facility] Software Security Architect Oncology 08/11/21 Lalo Acevedo MD [address] [place] [address] Primary Staff Physician Cardiology 08/19/21 Rahul Knight, RN Research Nurse 09/03/21 Electronic Scale Subassembler Relationship Specialty Start Date End Date Daksha Turner MD [address] [place] [address] PCP - General Family Practice 07/18/21 Sary Jonas, [facility] Software Security Architect Oncology 08/11/21 Lalo Acevedo MD [address] [place] [address] Primary Staff Physician Cardiology 08/19/21 Rahul Knight, RN Research Nurse 09/03/21 Electronic Scale Subassembler Relationship Specialty Start Date End Date Daksha Tunrer MD [address] [facility] [place] [address] PCP - General Family Practice 07/18/21 Sary Jonas, [facility] Software Security Architect Oncology 08/11/21 Lalo Acevedo MD [address] [place] [address] Primary Staff Physician Cardiology 08/19/21 Rahul Knight, RN Research Nurse 09/03/21 Electronic Scale Subassembler Relationship Specialty Start Date End Date Daksha Turner MD [address] [facility] [place] [address] PCP - General Family Practice 07/18/21 Sary Jonas, [facility] Software Security Architect Oncology 08/11/21 Lalo Acevedo MD [address] [place] [address] Primary Staff Physician Cardiology 08/19/21 Rahul Knight, RN Research Nurse 09/03/21 Safia Carr, [facility] [address] [place] [address] Transitional Care Pharmacist Pharmacy 09/29/21 10/30/21 Electronic Scale Subassembler Relationship Specialty Start Date End Date Daksha Turner MD [address] [place], [place] [id number] PCP - General Family Practice 07/18/21 [facility] Software Security Architect Oncology 08/11/21 Lalo Acevedo MD [address] [place], [place] [phone] Primary Staff Physician Cardiology 08/19/21 Rahul Knight, RN Research Nurse 09/03/21 Safia Carr, [facility] [address] [place], [place] [phone] Transitional Care Pharmacist Pharmacy 09/29/21 10/30/21 Electronic Scale Subassembler Relationship Specialty Start Date End Date Daksha Turner MD [address] [facility] [place], [place] [id number] PCP - General Family Practice 07/18/21 [facility] Software Security Architect Oncology 08/11/21 Lalo Acevedo MD [address] [place], [place] [phone] Primary Staff Physician Cardiology 08/19/21 Rahul Knight, RN Research Nurse 09/03/21 Electronic Scale Subassembler Relationship Specialty Start Date End Date Daksha Turner MD [address] [place], [place] [id number] PCP - General Family Practice 07/18/21 Sary Jonsa, [facility] Software Security Architect Oncology 08/11/21 Lalo Acevedo MD [address] [place] [address] Primary Staff Physician Cardiology 08/19/21 Rahul Knight, RN Research Nurse 09/03/21 Safia Carr, [facility] [address] [place] [address] Transitional Care Pharmacist Pharmacy 09/29/21 10/30/21 Electronic Scale Subassembler Relationship Specialty Start Date End Date Daksha Turner MD [address] [place] [address] PCP - General Family Practice 07/18/21 Sary Jonas, [facility] Software Security Architect Oncology 08/11/21 Lalo Acevedo MD [address] [place] [address] Primary Staff Physician Cardiology 08/19/21 Rahul Knight, RN Research Nurse 09/03/21 Safia Carr, [facility] [address] [place] [address] Transitional Care Pharmacist Pharmacy 09/29/21 10/30/21 Electronic Scale Subassembler Relationship Specialty Start Date End Date Daksha Turner MD [address] [place] [address] PCP - General Family Practice 07/18/21 Sary Jonas, [facility] Software Security Architect Oncology 08/11/21 Lalo Acevedo MD [address] [place], [place] 1087095 Primary Staff Physician Cardiology 08/19/21 Rahul Knight, RN Research Nurse 09/03/21 Safia Carr, [facility] [address] [place] [address] Transitional Care Pharmacist Pharmacy 09/29/21 10/30/21 Electronic Scale Subassembler Relationship Specialty Start Date End Date Daksha Turner MD [address] [place], [place] 818221 PCP - General Family Practice 07/18/21 Sary Jonas, [facility] Software Security Architect Oncology 08/11/21 Lalo Acevedo MD [address] [place] [address] Primary Staff Physician Cardiology 08/19/21 Rahul Knight, RN Research Nurse 09/03/21 Safia Carr, [facility] [address] [place] [address] Transitional Care Pharmacist Pharmacy 09/29/21 10/30/21 Electronic Scale Subassembler Relationship Specialty Start Date End Date Daksha Turner MD [address] [place], [place] 820971 PCP - General Family Practice 07/18/21 Sary Jonas, [facility] Software Security Architect Oncology 08/11/21 Lalo Acevedo MD [address] [place] [address] Primary Staff Physician Cardiology 08/19/21 Rahul Knight, RN Research Nurse 09/03/21 Safia Carr, [facility] [address] [place] [address] Transitional Care Pharmacist Pharmacy 09/29/21 10/30/21 Electronic Scale Subassembler Relationship Specialty Start Date End Date Daksha Turner MD [address] [place], [place] [id number] PCP - General Family Practice 07/18/21 Sary Jonas, [facility] Software Security Architect Oncology 08/11/21 Lalo Acevedo MD [address] [place] [address] Primary Staff Physician Cardiology 08/19/21 Rahul Knight, RN Research Nurse 09/03/21 Electronic Scale Subassembler Relationship Specialty Start Date End Date Daksha Turner MD [address] [place], [place] [id number] PCP - General Family Practice 07/18/21 Sary Jonas, [facility] Software Security Architect Oncology 08/11/21 Lalo Acevedo MD [address] [place] [address] Primary Staff Physician Cardiology 08/19/21 Rahul Knight, RN Research Nurse 09/03/21 Safia Carr, [facility] [address] [place], [place] [phone] Transitional Care Pharmacist Pharmacy 09/29/21 10/30/21 Electronic Scale Subassembler Relationship Specialty Start Date End Date Daksha Turner MD [address] [place], [place] [id number] PCP - General Family Practice 07/18/21 Sary Jonas, [facility] Software Security Architect Oncology 08/11/21 Lalo Acevedo MD [address] [place] [address] Primary Staff Physician Cardiology 08/19/21 Rahul Knight, RN Research Nurse 09/03/21 Electronic Scale Subassembler Relationship Specialty Start Date End Date Daksha Turner MD [address] [place], [place] [id number] PCP - General Family Practice 07/18/21 Sary Jonas, [facility] Software Security Architect Oncology 08/11/21 Lalo Acevedo MD [address] [place] [address] Primary Staff Physician Cardiology 08/19/21 Rahul Knight, RN Research Nurse 09/03/21 Jiavu Safia, [facility] [address] [place], [place] [phone] Transitional Care Pharmacist Pharmacy 09/29/21 10/30/21 Electronic Scale Subassembler Relationship Specialty Start Date End Date Daksha Turner MD [address] [place], [place] [id number] PCP - General Family Practice 07/18/21 Sary Jonas, [facility] Software Security Architect Oncology 08/11/21 Lalo Acevedo MD [address] [place] [address] Primary Staff Physician Cardiology 08/19/21 Rahul Knight, RN Research Nurse 09/03/21 Electronic Scale Subassembler Relationship Specialty Start Date End Date Daksha Turner MD [address] [place], [place] [id number] PCP - General Family Practice 07/18/21 [facility] Software Security Architect Oncology 08/11/21 Lalo Acevedo MD [address] [place], [place] [id number] Primary Staff Physician Cardiology 08/19/21 Rahul Knight, RN Research Nurse 09/03/21 Electronic Scale Subassembler Relationship Specialty Start Date End Date Daksha Turner MD [address] [place], [place] [id number] PCP - General Family Practice 07/18/21 [facility] Software Security Architect Oncology 08/11/21 Lalo Acevedo MD [address] [place] [address] Primary Staff Physician Cardiology 08/19/21 Rahul Knight, RN Research Nurse 09/03/21 Electronic Scale Subassembler Relationship Specialty Start Date End Date Daksha Turner MD [address] [place], [place] 925621 PCP - General Family Medicine 07/18/21 Sary Jonas, [facility] Software Security Architect Oncology 08/11/21 Lalo Acevedo MD [address] [place] [address] Primary Staff Physician Cardiology 08/19/21 Rahul Knight, RN Research Nurse 09/03/21 Electronic Scale Subassembler Relationship Specialty Start Date End Date Daksha Turner MD [address] [place], [place] [id number] PCP - General Family Medicine 07/18/21 Sary Jonas, [facility] Software Security Architect Oncology 08/11/21 Lalo Acevedo MD [address] [place] [address] Primary Staff Physician Cardiology 08/19/21 Rahul Knight, RN Research Nurse 09/03/21 Electronic Scale Subassembler Relationship Specialty Start Date End Date Daksha Turner MD [address] [place], [place] [id number] PCP - General Family Medicine 07/18/21 Sary Jonas, [facility] Software Security Architect Oncology 08/11/21 Lalo Acevedo MD [address] [place] [address] Primary Staff Physician Cardiology 08/19/21 Rahul Knight, RN Research Nurse 09/03/21 Haylee Wilburn MD [address] [place] [address] Oncology 12/08/21 Alfredo Xavier MD 132[facility] [place] [address] Radiation Oncology 12/08/21 Electronic Scale Subassembler Relationship Specialty Start Date End Date Daksha Turner MD [address] [place], [place] 361621 PCP - General Family Medicine 07/18/21 Sary Jonas, [facility] Software Security Architect Oncology 08/11/21 Lalo Acevedo MD [address] [place], [place] [phone] Primary Staff Physician Cardiology 08/19/21 Rahul Knight, RN Research Nurse 09/03/21 Haylee Wilburn MD [address] [place], [place] 4852708 Oncology 12/08/21 Alfredo Xavier MD [address] [facility] [place] [address] Radiation Oncology 12/08/21 Electronic Scale Subassembler Relationship Specialty Start Date End Date Daksha Turner MD [address] [place], [place] [address] PCP - General Family Medicine 07/18/21 Sary Jonas, [facility] Software Security Architect Oncology 08/11/21 Lalo Acevedo MD [address] [place] [address] Primary Staff Physician Cardiology 08/19/21 Rahul Knight, RN Research Nurse 09/03/21 Haylee Wilburn MD [address] [place], [place] 7963808 Oncology 12/08/21 Alfredo Xavier MD [address] [facility] [place] [address] Radiation Oncology 12/08/21 Electronic Scale Subassembler Relationship Specialty Start Date End Date Daksha Turner MD [address] [place] [address] PCP - General Family Medicine 07/18/21 Sary Jonas, [facility] Software Security Architect Oncology 08/11/21 Lalo Acevedo MD [address] [place] [address] Primary Staff Physician Cardiology 08/19/21 Rahul Knight, RN Research Nurse 09/03/21 Haylee Wilburn MD [address] [place] [address] Oncology 12/08/21 [place] [address] [place] [address] [address] [place] [id number] Radiation Oncology 12/08/21 Electronic Scale Subassembler Relationship Specialty Start Date End Date Daksha Turner MD [address] [place] [address] PCP - General Family Medicine 07/18/21 Sary Jonas, [facility] Software Security Architect Oncology 08/11/21 Lalo Acevedo MD [address] [place] [address] Primary Staff Physician Cardiology 08/19/21 Rahul Knight, RN Research Nurse 09/03/21 Haylee Wilburn MD [address] [place] [place], [place] 1370663 [phone] Oncology 12/08/21 Alfredo Xavier MD [address] [place] [address] Radiation Oncology 12/08/21 Electronic Scale Subassembler Relationship Specialty Start Date End Date Daksha Turner MD [address] [facility] [place], [place] [id number] PCP - General Family Medicine 07/18/21 Sary Jonas, [facility] Software Security Architect Oncology 08/11/21 Lalo Acevedo MD [address] [place], [place] [phone] Primary Staff Physician Cardiology 08/19/21 Rahul Knight, RN Research Nurse 09/03/21 Haylee Wilburn MD [address] [place], [place] 6572108 Oncology 12/08/21 [place] [address] [place] [address] [place] [phone] Radiation Oncology 12/08/21 Electronic Scale Subassembler Relationship Specialty Start Date End Date Daksha Turner MD [address] [facility] [place], [place] 067[address] PCP - General Family Medicine 07/18/21 Sary Jonas, [facility] Software Security Architect Oncology 08/11/21 Lalo Acevedo MD [address] [place] [address] Primary Staff Physician Cardiology 08/19/21 Rahul Knight, RN Research Nurse 09/03/21 Haylee Wilburn MD [address] [place], [place] 9184708 Oncology 12/08/21 Alfredo Xavier MD [address] [facility] [place] [phone] Radiation Oncology 12/08/21 Electronic Scale Subassembler Relationship Specialty Start Date End Date Daksha Turner MD [address] [facility] [place], [place] 11986691 PCP - General Family Medicine 07/18/21 Sary Jonas [facility] Software Security Architect Oncology 08/11/21 Lalo Acevedo MD [address] [place] [address] Primary Staff Physician Cardiology 08/19/21 Rahul Knight, RN Research Nurse 09/03/21 Haylee Wilburn MD [address] [place], [place] 9810808 Oncology 12/08/21 [place] [address] [place] [address] Radiation Oncology 12/08/21 Electronic Scale Subassembler Relationship Specialty Start Date End Date Daksha Turner MD [address] [facility] [place], [place] 87664691 PCP - General Family Medicine 07/18/21 Sary Jonas [facility] Software Security Architect Oncology 08/11/21 Lalo Acevedo MD [address] [place] [address] Primary Staff Physician Cardiology 08/19/21 Rahul Knight, RN Research Nurse 09/03/21 Haylee Wilburn MD [address] [place] [address] Oncology 12/08/21 [place] [address] [place] [address] Radiation Oncology 12/08/21 Electronic Scale Subassembler Relationship Specialty Start Date End Date Daksha Turner MD [address] [facility] [place], [place] 71956691 PCP - General Family Medicine 07/18/21 Sary Jonas [facility] Software Security Architect Oncology 08/11/21 Lalo Acevedo MD [address] [place] [address] Primary Staff Physician Cardiology 08/19/21 Rahul Knight, RN Research Nurse 09/03/21 Haylee Wilburn MD [address] [place], [place] 7150808 Oncology 12/08/21 Alfredo Xavier MD [address] [facility] [place] [address] Radiation Oncology 12/08/21 Sayra Tello MD [address] [place], [place] 0598[address] Cardiology 02/12/22 Electronic Scale Subassembler Relationship Specialty Start Date End Date Daksha Turner MD [address] [place] [address] PCP - General Family Medicine 07/18/21 Sary Jonas [facility] Software Security Architect Oncology 08/11/21 Lalo Acevedo MD [address] [place] [address] Primary Staff Physician Cardiology 08/19/21 Rahul Knight, RN Research Nurse 09/03/21 Haylee Wilburn MD [address] [place], [place] 5269508 Oncology 12/08/21 Alfredo Xavier MD [address] [place] [address] Radiation Oncology 12/08/21 Sayra Tello MD [address] [place], [place] 8219408 Cardiology 02/12/22 Electronic Scale Subassembler Relationship Specialty Start Date End Date Daksha Turner MD [address] [place], [place] [id number] PCP - General Family Medicine 07/18/21 Sary Jonas, [facility] Software Security Architect Oncology 08/11/21 Lalo Acevedo MD [address] [place] [address] Primary Staff Physician Cardiology 08/19/21 Rahul Knight, RN Research Nurse 09/03/21 Haylee Wilburn MD [address] [place] [address] Oncology 12/08/21 Alfredo Xavier MD [address] [facility] [place] [address] Radiation Oncology 12/08/21 Sayra Tello MD [address] [facility] [place] [address] Cardiology 02/12/22 Electronic Scale Subassembler Relationship Specialty Start Date End Date Daksha Turner MD [address] [place] [address] PCP - General Family Medicine 07/18/21 Sary Jonas, [facility] Software Security Architect Oncology 08/11/21 Lalo Acevedo MD [address] [place] [address] Primary Staff Physician Cardiology 08/19/21 Rahul Knight, RN Research Nurse 09/03/21 Haylee Wilburn MD [address] [place] [address] Oncology 12/08/21 Alfredo Xavier MD [address] [place] [address] Radiation Oncology 12/08/21 Sayra Tello MD [address] [place] [address] Cardiology 02/12/22 Electronic Scale Subassembler Relationship Specialty Start Date End Date Daksha Turner MD [address] [place], [place] [id number] PCP - General Family Medicine 07/18/21 Sary Jonas, [facility] Software Security Architect Oncology 08/11/21 Lalo Acevedo MD [address] [place] [address] Primary Staff Physician Cardiology 08/19/21 Rahul Knight, RN Research Nurse 09/03/21 Haylee Wilburn MD [address] [facility] [place] [address] Oncology 12/08/21 Alfredo Xavier MD [address] [place] [address] Radiation Oncology 12/08/21 Sayra Tello MD [address] [place] [address] Cardiology 02/12/22 Electronic Scale Subassembler Relationship Specialty Start Date End Date Daksha Turner MD [address] [place], [place] 783761 PCP - General Family Medicine 07/18/21 Sary Jonas, [facility] Software Security Architect Oncology 08/11/21 Lalo Acevedo MD [address] [place] [address] Primary Staff Physician Cardiology 08/19/21 Rahul Knight, RN Research Nurse 09/03/21 Haylee Wilburn MD [address] [place], [place] 0876215 [phone] Oncology 12/08/21 Alfredo Xavier MD [address] [facility] [place] [address] Radiation Oncology 12/08/21 Sayra Tello MD [address] [place] [address] Cardiology 02/12/22 Electronic Scale Subassembler Relationship Specialty Start Date End Date Daksha Turner MD [address] [facility] [place], [place] [id number] PCP - General Family Medicine 07/18/21 Sary Jonas, [facility] Software Security Architect Oncology 08/11/21 Lalo Acevedo MD [address] [place] [address] Primary Staff Physician Cardiology 08/19/21 Rahul Knight, RN Research Nurse 09/03/21 Haylee Wilburn MD [address] [place], [place] 6331828 [phone] Oncology 12/08/21 Alfredo Xavier MD [address] [facility] [place] [address] Radiation Oncology 12/08/21 Sayra Tello MD [address] [place] [address] Cardiology 02/12/22 Electronic Scale Subassembler Relationship Specialty Start Date End Date Daksha Turner MD [address] [place], [place] [id number] PCP - General Family Medicine 07/18/21 Sary Jonas, [facility] Software Security Architect Oncology 08/11/21 Llao Acevedo MD [address] [place] [address] Primary Staff Physician Cardiology 08/19/21 Rahul Knight, RN Research Nurse 09/03/21 Haylee Wilburn MD [address] [place] [address] Oncology 12/08/21 Alfredo Xavier MD [address] [place] [phone] Radiation Oncology 12/08/21 Sayra Tello MD [address] [place], [place] [id number] Cardiology 02/12/22 Electronic Scale Subassembler Relationship Specialty Start Date End Date Daksha Turner MD [address] [place] [address] PCP - General Family Medicine 07/18/21 Sary Jonas [employer] Software Security Architect Oncology 08/11/21 Lalo Acevedo MD [address] [place] [address] Primary Staff Physician Cardiology 08/19/21 Rahul Knight, RN Research Nurse 09/03/21 Haylee Wilburn MD [address] [place] [address] Oncology 12/08/21 Alfredo Xavier MD [address] [place] [address] Radiation Oncology 12/08/21 Sayra Tello MD [address] [place] [address] Cardiology 02/12/22 Electronic Scale Subassembler Relationship Specialty Start Date End Date Daksha Turner MD [address] [place] [address] PCP - General Family Medicine 07/18/21 Sary Jonas [facility] Software Security Architect Oncology 08/11/21 Lalo Acevedo MD [address] [place] [address] Primary Staff Physician Cardiology 08/19/21 Rahul Knight, RN Research Nurse 09/03/21 Haylee Wilburn MD [address] [place] [address] Oncology 12/08/21 Alfredo Xavier MD [address] [facility] [place] [address] Radiation Oncology 12/08/21 Sayra Tello MD [address] [place], [place] 4810108 Cardiology 02/12/22 Electronic Scale Subassembler Relationship Specialty Start Date End Date Daksha Turner MD [address] [place] [address] PCP - General Family Medicine 07/18/21 Sary Jonas, [facility] Software Security Architect Oncology 08/11/21 Lalo Acevedo MD [address] [place] [address] Primary Staff Physician Cardiology 08/19/21 Rahul Knight, RN Research Nurse 09/03/21 Haylee Wilburn MD [address] [place] [address] Oncology 12/08/21 Alfredo Xavier MD [address] [place] [address] Radiation Oncology 12/08/21 Sayra Tello MD [address] [facility] [place], [place] [id number] Cardiology 02/12/22 Electronic Scale Subassembler Relationship Specialty Start Date End Date Daksha Turner MD [address] [facility] [place], [place] [id number] PCP - General Family Medicine 07/18/21 Sary Jonas, [facility] Software Security Architect Oncology 08/11/21 Lalo Acevedo MD [address] [place] [address] Primary Staff Physician Cardiology 08/19/21 Rahul Knight, RN Research Nurse 09/03/21 Haylee Wilburn MD [address] [place] [address] Oncology 12/08/21 Alfredo Xavier MD [address] [facility] [place] [id number] Radiation Oncology 12/08/21 Sayra Tello MD [address] [place] [address] Cardiology 02/12/22 Electronic Scale Subassembler Relationship Specialty Start Date End Date Daksha Turner MD [address] [place] [address] PCP - General Family Medicine 07/18/21 Sary Jonas, [facility] Software Security Architect Oncology 08/11/21 Lalo Acevedo MD [address] [place], [place] [id number] Primary Staff Physician Cardiology 08/19/21 Rahul Knight, RN Research Nurse 09/03/21 Haylee Wilburn MD [address] [place] [id number] Oncology 12/08/21 Alfredo Xavier MD [address] [facility] [place] [id number] Radiation Oncology 12/08/21 Sayra Tello MD [address] [facility] [address] [place] [place], [place] [id number] Cardiology 02/12/22 Team Status: Active Member Role [...] , Attending Provider, Referring P rovider Active Electronic Scale Subassembler Relationship Specialty Start Date End Date Daksha Turner MD [address] [facility] [place] [address] PCP - General Family Medicine 07/18/21 Sary Jonas LSW Software Security Architect Oncology 08/11/21 Lalo Acevedo MD [address] [place] [address] Primary Staff Physician Cardiology 08/19/21 Rahul Knight, RN Research Nurse 09/03/21 Haylee Wilburn MD [address] [facility] [place], [place] [id number] Oncology 12/08/21 Alfredo Xavier MD [address] [place] [phone] Radiation Oncology 12/08/21 Electronic Scale Subassembler Relationship Specialty Start Date End Date Daksha Turner MD [address] [place] [id number] PCP - General Family Medicine 07/18/21 Sary Jonas LSW Software Security Architect Oncology 08/11/21 Lalo Acevedo MD [address] [place] [address] Primary Staff Physician Cardiology 08/19/21 Rahul Knight, RN Research Nurse 09/03/21 Haylee Wilburn MD [address] [facility] [place] [address] Oncology 12/08/21 Alfredo Xavier MD [address] [place] [address] Radiation Oncology 12/08/21 Sayra Tello MD [address], [address] [address] Cardiology 02/12/22 Team Status: Active [...] 2024 End: August 14, 2024 Gini Couch SOFT IRON INSPECTOR, SOFT IRON INSPECTOR-C Attending Provider Active Start: August 14, 2024 End: August 14, 2024 Team Status: Inactive Member Role Status Dates Dr. Daksha Turner MD Primary Care Provider Acti ve Start: August 14, 2024 End: August 14, 2024 Gini Couch SOFT IRON INSPECTOR, SOFT IRON INSPECTOR-C Attending Provider Active Start: August 14, 2024 End: August 14, 2024 Gini Couch SOFT IRON INSPECTOR, SOFT IRON INSPECTOR-C Referring Provider Active Start: August 14, 2024 [...] 2024 End: August 14, 2024 Gini Couch SOFT IRON INSPECTOR, SOFT IRON INSPECTOR-C Attending Provider Active Start: August 14, 2024 End: August 14, 2024 Team Status: Inactive Member Role/Relationship Status Dates Dr. Daksha Turner MD Primary Care Provider Acti ve Start: August 14, 2024 End: August 14, 2024 Gini Couch SOFT IRON INSPECTOR, SOFT IRON INSPECTOR-C Attending Provider Active Start: August 14, 2024 End: August 14, 2024 Gini Couch SOFT IRON INSPECTOR, SOFT IRON INSPECTOR-C Referring Provider Active Start: August 14, 2024 [...] ve Start: September 25, 2024 Gini Couch SOFT IRON INSPECTOR, SOFT IRON INSPECTOR-C Attending Provider Active Start: September 25, 2024 Gini Couch SOFT IRON INSPECTOR, SOFT IRON INSPECTOR-C Referring Provider Active Start: September 25, 2024 [...] ve Start: September 25, 2024 Gini Couch SOFT IRON INSPECTOR, SOFT IRON INSPECTOR-C Referring Provider Active Start: September 25, 2024 Gini Couch SOFT IRON INSPECTOR, SOFT IRON INSPECTOR-C Other Provider Active Sta rt: September 25, 2024 Dr. Moises Gaona MD Attending Provider Active S tart: September 25, 2024 Team Status: Active Member Role/Relationship Status Dates Dr. Daksha Turner MD Primary Care Provider Acti ve Start: September 26, 2024 Gini Couch SOFT IRON INSPECTOR, SOFT IRON INSPECTOR-C Attending Provider Active Start: September 26, 2024 Team Status: Active Member Role/Relationship Status Dates Dr. Daksha Turner MD Primary Care Provider Acti ve Start: September 26, 2024 Gini Couch SOFT IRON INSPECTOR, SOFT IRON INSPECTOR-C Attending Provider Active Start: September 26, 2024 Team Status: Inactive Member Role/Relationship Status Dates Dr. Daksha Turner MD Primary Care Provider Acti ve Start: September 25, 2024 End: September 25, 2024 Gini Couch SOFT IRON INSPECTOR, SOFT IRON INSPECTOR-C Attending Provider Active Start: September 25, 2024 End: September 25, 2024 Gini Couch SOFT IRON INSPECTOR, SOFT IRON INSPECTOR-C Referring Provider Active Start: September 25, 2024 End: September 25, 2024 Team Status: Inactive Member Role/Relationship Status Dates Dr. Daksha Turner MD Primary Care Provider Acti ve Start: October 02, 2024 End: October 02, 2024 Dr. Daksha Turner MD Referring Provider Active Start: October 02, 2024 End: October 02, 2024 Gini Couch SOFT IRON INSPECTOR, SOFT IRON INSPECTOR-C Attending Provider Active Start: October 02, 2024 [...] 2024 End: August 14, 2024 Gini Couch SOFT IRON INSPECTOR, SOFT IRON INSPECTOR-C Attending Provider Active Start: August 14, 2024 End: August 14, 2024 Team Status: Inactive Member Role/Relationship Status Dates Dr. Daksha Turner MD Primary Care Provider Acti ve Start: August 14, 2024 End: August 14, 2024 Gini Couch SOFT IRON INSPECTOR, SOFT IRON INSPECTOR-C Attending Provider Active Start: August 14, 2024 End: August 14, 2024 Gini Couch SOFT IRON INSPECTOR, SOFT IRON INSPECTOR-C Referring Provider Active Start: August 14, 2024 [...] 2024 End: September 25, 2024 Gini Couch SOFT IRON INSPECTOR, SOFT IRON INSPECTOR-C Attending Provider Active Start: September 25, 2024 End: September 25, 2024 Gini Couch SOFT IRON INSPECTOR, SOFT IRON INSPECTOR-C Referring Provider Active Start: September 25, 2024 [...] ve Start: September 25, 2024 Gini Couch SOFT IRON INSPECTOR, SOFT IRON INSPECTOR-C Referring Provider Active Start: September 25, 2024 Gini Couch SOFT IRON INSPECTOR, SOFT IRON INSPECTOR-C Other Provider Active Sta rt: September 25, 2024 Dr. Moises Gaona MD Attending Provider Active S tart: September 25, 2024 Team Status: Active Member Role/Relationship Status Dates Dr. Daksha Turner MD Primary Care Provider Acti ve Start: September 26, 2024 Gini Couch SOFT IRON INSPECTOR, SOFT IRON INSPECTOR-C Attending Provider Active Start: September 26, 2024 Team Status: Inactive Member Role/Relationship Status Dates Dr. Daksha Turner MD Primary Care Provider Acti ve Start: October 02, 2024 End: October 02, 2024 Dr. Daksha Turner MD Referring Provider Active Start: October 02, 2024 End: October 02, 2024 Gini Couch SOFT IRON INSPECTOR, SOFT IRON INSPECTOR-C Attending Provider Active Start: October 02, 2024 End: October 02, 2024 Team Status: Inactive Member Role/Relationship Status Dates Dr. Daksha Turner MD Primary Care Provider Acti ve Start: October 02, 2024 End: October 02, 2024 Gini Couch SOFT IRON INSPECTOR, SOFT IRON INSPECTOR-C Attending Provider Active Start: October 02, 2024 End: October 02, 2024 Gini Couch SOFT IRON INSPECTOR, SOFT IRON INSPECTOR-C Referring Provider Active Start: October 02, 2024 End: October 02, 2024 Team Status: Inactive Member Role/Relationship Status Dates Dr. Daksha Turner MD Primary Care Provider Acti ve Start: August 14, 2024 End: August 14, 2024 Dr. Daksha Turner MD Referring Provider Active Start: August 14, 2024 End: August 14, 2024 Gini Couch SOFT IRON INSPECTOR, SOFT IRON INSPECTOR-C Attending Provider Active Start: August 14, 2024 End: August 14, 2024 Team Status: Inactive Member Role/Relationship Status Dates Dr. Daksha Turner MD Primary Care Provider Acti ve Start: August 14, 2024 End: August 14, 2024 Gini Couch SOFT IRON INSPECTOR, SOFT IRON INSPECTOR-C Attending Provider Active Start: August 14, 2024 End: August 14, 2024 Gini Couch SOFT IRON INSPECTOR, SOFT IRON INSPECTOR-C Referring Provider Active Start: August 14, 2024 [...] 2024 End: September 25, 2024 Gini Couch SOFT IRON INSPECTOR, SOFT IRON INSPECTOR-C Attending Provider Active Start: September 25, 2024 End: September 25, 2024 Gini Couch SOFT IRON INSPECTOR, SOFT IRON INSPECTOR-C Referring Provider Active Start: September 25, 2024 [...] ve Start: September 25, 2024 Gini Couch SOFT IRON INSPECTOR, SOFT IRON INSPECTOR-C Referring Provider Active Start: September 25, 2024 Gini Couch SOFT IRON INSPECTOR, SOFT IRON INSPECTOR-C Other Provider Active Sta rt: September 25, 2024 Dr. Moises Gaona MD Attending Provider Active S tart: September 25, 2024 Team Status: Active Member Role/Relationship Status Dates Dr. Daksha Turner MD Primary Care Provider Acti ve Start: September 26, 2024 Gini Couch SOFT IRON INSPECTOR, SOFT IRON INSPECTOR-C Attending Provider Active Start: September 26, 2024 Team Status: Active Member Role/Relationship Status Dates Dr. Daksha Turner MD Primary Care Provider Acti ve Start: September 26, 2024 Gini Couch SOFT IRON INSPECTOR, SOFT IRON INSPECTOR-C Attending Provider Active Start: September 26, 2024 Team Status: Inactive Member Role/Relationship Status Dates Dr. Daksha Turner MD Primary Care Provider Acti ve Start: October 02, 2024 End: October 02, 2024 Dr. Daksha Turner MD Referring Provider Active Start: October 02, 2024 End: October 02, 2024 Gini Couch SOFT IRON INSPECTOR, SOFT IRON INSPECTOR-C Attending Provider Active Start: October 02, 2024 End: October 02, 2024 Team Status: Inactive Member Role/Relationship Status Dates Dr. Daksha Turner MD Primary Care Provider Acti ve Start: October 02, 2024 End: October 02, 2024 Gini Couch SOFT IRON INSPECTOR, SOFT IRON INSPECTOR-C Attending Provider Active Start: October 02, 2024 End: October 02, 2024 Gini Couch SOFT IRON INSPECTOR, SOFT IRON INSPECTOR-C Referring Provider Active Start: October 02, 2024 [...] or prosecute any alcohol or drug abuse patient.[facility] CenterIn the event this information is protected by the Federal Confidentiality of Alcohol and Drug Abuse Patient Records regulations: The Federal rules restrict any use of the information to criminally investigate or prosecute any alcohol or drug abuse patient.[facility] CenterIn the event this information is protected by the Federal Confidentiality of Alcohol and Drug Abuse Patient Records regulations: The Federal rules restrict any use of the information to criminally investigate or prosecute any alcohol or drug abuse patient.[facility] CenterIn the event this information is protected by the Federal Confidentiality of Alcohol and Drug Abuse Patient Records regulations: The Federal rules restrict any use of the information to criminally investigate or prosecute any alcohol or drug abuse patient.[facility] CenterIn the event this information is protected by the Federal Confidentiality of Alcohol and Drug Abuse Patient Records regulations: The Federal rules restrict any use of the information to criminally investigate or prosecute any alcohol or drug abuse patient.[facility] CenterIn the event this information is protected by the Federal Confidentiality of Alcohol and Drug Abuse Patient Records regulations: The Federal rules restrict any use of the information to criminally investigate or prosecute any alcohol or drug abuse patient.[facility] CenterIn the event this information is protected by the Federal Confidentiality of Alcohol and Drug Abuse Patient Records regulations: The Federal rules restrict any use of the information to criminally investigate or prosecute any alcohol or drug abuse patient.[facility] CenterIn the event this information is protected by the Federal Confidentiality of Alcohol and Drug Abuse Patient Records regulations: The Federal rules restrict any use of the information to criminally investigate or prosecute any alcohol or drug abuse patient.[facility] CenterIn the event this information is protected by the Federal Confidentiality of Alcohol and Drug Abuse Patient Records regulations: The Federal rules restrict any use of the information to criminally investigate or prosecute any alcohol or drug abuse patient.[facility] CenterIn the event this information is protected by the Federal Confidentiality of Alcohol and Drug Abuse Patient Records regulations: The Federal rules restrict any use of the information to criminally investigate or prosecute any alcohol or drug abuse patient.[facility] CenterIn the event this information is protected by the Federal Confidentiality of Alcohol and Drug Abuse Patient Records regulations: The Federal rules restrict any use of the information to criminally investigate or prosecute any alcohol or drug abuse patient.[facility] CenterIn the event this information is protected by the Federal Confidentiality of Alcohol and Drug Abuse Patient Records regulations: The Federal rules restrict any use of the information to criminally investigate or prosecute any alcohol or drug abuse patient.[facility] CenterIn the event this information is protected by the Federal Confidentiality of Alcohol and Drug Abuse Patient Records regulations: The Federal rules restrict any use of the information to criminally investigate or prosecute any alcohol or drug abuse patient.[facility] CenterIn the event this information is protected by the Federal Confidentiality of Alcohol and Drug Abuse Patient Records regulations: The Federal rules restrict any use of the information to criminally investigate or prosecute any alcohol or drug abuse patient.[facility] CenterIn the event this information is protected by the Federal Confidentiality of Alcohol and Drug Abuse Patient Records regulations: The Federal rules restrict any use of the information to criminally investigate or prosecute any alcohol or drug abuse patient.[facility] CenterIn the event this information is protected by the Federal Confidentiality of Alcohol and Drug Abuse Patient Records regulations: The Federal rules restrict any use of the information to criminally investigate or prosecute any alcohol or drug abuse patient.[facility] CenterIn the event this information is protected by the Federal Confidentiality of Alcohol and Drug Abuse Patient Records regulations: The Federal rules restrict any use of the information to criminally investigate or prosecute any alcohol or drug abuse patient.[facility] CenterIn the event this information is protected by the Federal Confidentiality of Alcohol and Drug Abuse Patient Records regulations: The Federal rules restrict any use of the information to criminally investigate or prosecute any alcohol or drug abuse patient.[facility] CenterIn the event this information is protected by the Federal Confidentiality of Alcohol and Drug Abuse Patient Records regulations: The Federal rules restrict any use of the information to criminally investigate or prosecute any alcohol or drug abuse patient.[facility] CenterIn the event this information is protected by the Federal Confidentiality of Alcohol and Drug Abuse Patient Records regulations: The Federal rules restrict any use of the information to criminally investigate or prosecute any alcohol or drug abuse patient.[facility] CenterIn the event this information is protected by the Federal Confidentiality of Alcohol and Drug Abuse Patient Records regulations: The Federal rules restrict any use of the information to criminally investigate or prosecute any alcohol or drug abuse patient.[facility] CenterIn the event this information is protected by the Federal Confidentiality of Alcohol and Drug Abuse Patient Records regulations: The Federal rules restrict any use of the information to criminally investigate or prosecute any alcohol or drug abuse patient.[facility] CenterIn the event this information is protected by the Federal Confidentiality of Alcohol and Drug Abuse Patient Records regulations: The Federal rules restrict any use of the information to criminally investigate or prosecute any alcohol or drug abuse patient.[facility] CenterIn the event this information is protected by the Federal Confidentiality of Alcohol and Drug Abuse Patient Records regulations: The Federal rules restrict any use of the information to criminally investigate or prosecute any alcohol or drug abuse patient.[facility] CenterIn the event this information is protected by the Federal Confidentiality of Alcohol and Drug Abuse Patient Records regulations: The Federal rules restrict any use of the information to criminally investigate or prosecute any alcohol or drug abuse patient.[facility] CenterIn the event this information is protected by the Federal Confidentiality of Alcohol and Drug Abuse Patient Records regulations: The Federal rules restrict any use of the information to criminally investigate or prosecute any alcohol or drug abuse patient.[facility] CenterIn the event this information is protected by the Federal Confidentiality of Alcohol and Drug Abuse Patient Records regulations: The Federal rules restrict any use of the information to criminally investigate or prosecute any alcohol or drug abuse patient.[facility] CenterIn the event this information is protected by the Federal Confidentiality of Alcohol and Drug Abuse Patient Records regulations: The Federal rules restrict any use of the information to criminally investigate or prosecute any alcohol or drug abuse patient.[facility] CenterIn the event this information is protected by the Federal Confidentiality of Alcohol and Drug Abuse Patient Records regulations: The Federal rules restrict any use of the information to criminally investigate or prosecute any alcohol or drug abuse patient.[facility] CenterIn the event this information is protected by the Federal Confidentiality of Alcohol and Drug Abuse Patient Records regulations: The Federal rules restrict any use of the information to criminally investigate or prosecute any alcohol or drug abuse patient.[facility] CenterIn the event this information is protected by the Federal Confidentiality of Alcohol and Drug Abuse Patient Records regulations: The Federal rules restrict any use of the information to criminally investigate or prosecute any alcohol or drug abuse patient.[facility] CenterIn the event this information is protected by the Federal Confidentiality of Alcohol and Drug Abuse Patient Records regulations: The Federal rules restrict any use of the information to criminally investigate or prosecute any alcohol or drug abuse patient.[facility] CenterIn the event this information is protected by the Federal Confidentiality of Alcohol and Drug Abuse Patient Records regulations: The Federal rules restrict any use of the information to criminally investigate or prosecute any alcohol or drug abuse patient.[facility] CenterIn the event this information is protected by the Federal Confidentiality of Alcohol and Drug Abuse Patient Records regulations: The Federal rules restrict any use of the information to criminally investigate or prosecute any alcohol or drug abuse patient.[facility] CenterIn the event this information is protected by the Federal Confidentiality of Alcohol and Drug Abuse Patient Records regulations: The Federal rules restrict any use of the information to criminally investigate or prosecute any alcohol or drug abuse patient.[facility] CenterIn the event this information is protected by the Federal Confidentiality of Alcohol and Drug Abuse Patient Records regulations: The Federal rules restrict any use of the information to criminally investigate or prosecute any alcohol or drug abuse patient.[facility] CenterIn the event this information is protected by the Federal Confidentiality of Alcohol and Drug Abuse Patient Records regulations: The Federal rules restrict any use of the information to criminally investigate or prosecute any alcohol or drug abuse patient.[facility] CenterIn the event this information is protected by the Federal Confidentiality of Alcohol and Drug Abuse Patient Records regulations: The Federal rules restrict any use of the information to criminally investigate or prosecute any alcohol or drug abuse patient.[facility] CenterIn the event this information is protected by the Federal Confidentiality of Alcohol and Drug Abuse Patient Records regulations: The Federal rules restrict any use of the information to criminally investigate or prosecute any alcohol or drug abuse patient.[facility] CenterIn the event this information is protected by the Federal Confidentiality of Alcohol and Drug Abuse Patient Records regulations: The Federal rules restrict any use of the information to criminally investigate or prosecute any alcohol or drug abuse patient.[facility] CenterIn the event this information is protected by the Federal Confidentiality of Alcohol and Drug Abuse Patient Records regulations: The Federal rules restrict any use of the information to criminally investigate or prosecute any alcohol or drug abuse patient.[facility] CenterIn the event this information is protected by the Federal Confidentiality of Alcohol and Drug Abuse Patient Records regulations: The Federal rules restrict any use of the information to criminally investigate or prosecute any alcohol or drug abuse patient.[facility] CenterIn the event this information is protected by the Federal Confidentiality of Alcohol and Drug Abuse Patient Records regulations: The Federal rules restrict any use of the information to criminally investigate or prosecute any alcohol or drug abuse patient.[facility] CenterIn the event this information is protected by the Federal Confidentiality of Alcohol and Drug Abuse Patient Records regulations: The Federal rules restrict any use of the information to criminally investigate or prosecute any alcohol or drug abuse patient.[facility] [facility] CenterIn the event this information is protected by the Federal Confidentiality of Alcohol and Drug Abuse Patient Records regulations: The Federal rules restrict any use of the information to criminally investigate or prosecute any alcohol or drug abuse patient.[facility] CenterIn the event this information is protected by the Federal Confidentiality of Alcohol and Drug Abuse Patient Records regulations: The Federal rules restrict any use of the information to criminally investigate or prosecute any alcohol or drug abuse patient.[facility] CenterIn the event this information is protected by the Federal Confidentiality of Alcohol and Drug Abuse Patient Records regulations: The Federal rules restrict any use of the information to criminally investigate or prosecute any alcohol or drug abuse patient.[facility] CenterIn the event this information is protected by the Federal Confidentiality of Alcohol and Drug Abuse Patient Records regulations: The Federal rules restrict any use of the information to criminally investigate or prosecute any alcohol or drug abuse patient.[facility] CenterIn the event this information is protected by the Federal Confidentiality of Alcohol and Drug Abuse Patient Records regulations: The Federal rules restrict any use of the information to criminally investigate or prosecute any alcohol or drug abuse patient.[facility] CenterIn the event this information is protected by the Federal Confidentiality of Alcohol and Drug Abuse Patient Records regulations: The Federal rules restrict any use of the information to criminally investigate or prosecute any alcohol or drug abuse patient.[facility] CenterIn the event this information is protected by the Federal Confidentiality of Alcohol and Drug Abuse Patient Records regulations: The Federal rules restrict any use of the information to criminally investigate or prosecute any alcohol or drug abuse patient.[facility] CenterIn the event this information is protected by the Federal Confidentiality of Alcohol and Drug Abuse Patient Records regulations: The Federal rules restrict any use of the information to criminally investigate or prosecute any alcohol or drug abuse patient.[facility] CenterIn the event this information is protected by the Federal Confidentiality of Alcohol and Drug Abuse Patient Records regulations: The Federal rules restrict any use of the information to criminally investigate or prosecute any alcohol or drug abuse patient.[facility] CenterIn the event this information is protected by the Federal Confidentiality of Alcohol and Drug Abuse Patient Records regulations: The Federal rules restrict any use of the information to criminally investigate or prosecute any alcohol or drug abuse patient.[facility] CenterIn the event this information is protected by the Federal Confidentiality of Alcohol and Drug Abuse Patient Records regulations: The Federal rules restrict any use of the information to criminally investigate or prosecute any alcohol or drug abuse patient.[facility] CenterIn the event this information is protected by the Federal Confidentiality of Alcohol and Drug Abuse Patient Records regulations: The Federal rules restrict any use of the information to criminally investigate or prosecute any alcohol or drug abuse patient.[facility] CenterIn the event this information is protected by the Federal Confidentiality of Alcohol and Drug Abuse Patient Records regulations: The Federal rules restrict any use of the information to criminally investigate or prosecute any alcohol or drug abuse patient.[facility] CenterIn the event this information is protected by the Federal Confidentiality of Alcohol and Drug Abuse Patient Records regulations: The Federal rules restrict any use of the information to criminally investigate or prosecute any alcohol or drug abuse patient.[facility] CenterIn the event this information is protected by the Federal Confidentiality of Alcohol and Drug Abuse Patient Records regulations: The Federal rules restrict any use of the information to criminally investigate or prosecute any alcohol or drug abuse patient.[facility] CenterIn the event this information is protected by the Federal Confidentiality of Alcohol and Drug Abuse Patient Records regulations: The Federal rules restrict any use of the information to criminally investigate or prosecute any alcohol or drug abuse patient.[facility] CenterIn the event this information is protected by the Federal Confidentiality of Alcohol and Drug Abuse Patient Records regulations: The Federal rules restrict any use of the information to criminally investigate or prosecute any alcohol or drug abuse patient.[facility] CenterIn the event this information is protected by the Federal Confidentiality of Alcohol and Drug Abuse Patient Records regulations: The Federal rules restrict any use of the information to criminally investigate or prosecute any alcohol or drug abuse patient.[facility] CenterIn the event this information is protected by the Federal Confidentiality of Alcohol and Drug Abuse Patient Records regulations: The Federal rules restrict any use of the information to criminally investigate or prosecute any alcohol or drug abuse patient.[facility] CenterIn the event this information is protected by the Federal Confidentiality of Alcohol and Drug Abuse Patient Records regulations: The Federal rules restrict any use of the information to criminally investigate or prosecute any alcohol or drug abuse patient.[facility] CenterIn the event this information is protected by the Federal Confidentiality of Alcohol and Drug Abuse Patient Records regulations: The Federal rules restrict any use of the information to criminally investigate or prosecute any alcohol or drug abuse patient.[facility] CenterIn the event this information is protected by the Federal Confidentiality of Alcohol and Drug Abuse Patient Records regulations: The Federal rules restrict any use of the information to criminally investigate or prosecute any alcohol or drug abuse patient.[facility] CenterIn the event this information is protected by the Federal Confidentiality of Alcohol and Drug Abuse Patient Records regulations: The Federal rules restrict any use of the information to criminally investigate or prosecute any alcohol or drug abuse patient.[facility] CenterIn the event this information is protected by the Federal Confidentiality of Alcohol and Drug Abuse Patient Records regulations: The Federal rules restrict any use of the information to criminally investigate or prosecute any alcohol or drug abuse patient.[facility] CenterIn the event this information is protected by the Federal Confidentiality of Alcohol and Drug Abuse Patient Records regulations: The Federal rules restrict any use of the information to criminally investigate or prosecute any alcohol or drug abuse patient.[facility] CenterIn the event this information is protected by the Federal Confidentiality of Alcohol and Drug Abuse Patient Records regulations: The Federal rules restrict any use of the information to criminally investigate or prosecute any alcohol or drug abuse patient.[facility] CenterIn the event this information is protected by the Federal Confidentiality of Alcohol and Drug Abuse Patient Records regulations: The Federal rules restrict any use of the information to criminally investigate or prosecute any alcohol or drug abuse patient.[facility] CenterIn the event this information is protected by the Federal Confidentiality of Alcohol and Drug Abuse Patient Records regulations: The Federal rules restrict any use of the information to criminally investigate or prosecute any alcohol or drug abuse patient.[facility] CenterIn the event this information is protected by the Federal Confidentiality of Alcohol and Drug Abuse Patient Records regulations: The Federal rules restrict any use of the information to criminally investigate or prosecute any alcohol or drug abuse patient.[facility] CenterIn the event this information is protected by the Federal Confidentiality of Alcohol and Drug Abuse Patient Records regulations: The Federal rules restrict any use of the information to criminally investigate or prosecute any alcohol or drug abuse patient.[facility] CenterIn the event this information is protected by the Federal Confidentiality of Alcohol and Drug Abuse Patient Records regulations: The Federal rules restrict any use of the information to criminally investigate or prosecute any alcohol or drug abuse patient.[facility] CenterIn the event this information is protected by the Federal Confidentiality of Alcohol and Drug Abuse Patient Records regulations: The Federal rules restrict any use of the information to criminally investigate or prosecute any alcohol or drug abuse patient.[facility] CenterIn the event this information is protected by the Federal Confidentiality of Alcohol and Drug Abuse Patient Records regulations: The Federal rules restrict any use of the information to criminally investigate or prosecute any alcohol or drug abuse patient.[facility] CenterIn the event this information is protected by the Federal Confidentiality of Alcohol and Drug Abuse Patient Records regulations: The Federal rules restrict any use of the information to criminally investigate or prosecute any alcohol or drug abuse patient.[facility] CenterIn the event this information is protected by the Federal Confidentiality of Alcohol and Drug Abuse Patient Records regulations: The Federal rules restrict any use of the information to criminally investigate or prosecute any alcohol or drug abuse patient.[facility] CenterIn the event this information is protected by the Federal Confidentiality of Alcohol and Drug Abuse Patient Records regulations: The Federal rules restrict any use of the information to criminally investigate or prosecute any alcohol or drug abuse patient.[facility] CenterIn the event this information is protected by the Federal Confidentiality of Alcohol and Drug Abuse Patient Records regulations: The Federal rules restrict any use of the information to criminally investigate or prosecute any alcohol or drug abuse patient.[facility] CenterIn the event this information is protected by the Federal Confidentiality of Alcohol and Drug Abuse Patient Records regulations: The Federal rules restrict any use of the information to criminally investigate or prosecute any alcohol or drug abuse patient.[facility] CenterIn the event this information is protected by the Federal Confidentiality of Alcohol and Drug Abuse Patient Records regulations: The Federal rules restrict any use of the information to criminally investigate or prosecute any alcohol or drug abuse patient.[facility] CenterIn the event this information is protected by the Federal Confidentiality of Alcohol and Drug Abuse Patient Records regulations: The Federal rules restrict any use of the information to criminally investigate or prosecute any alcohol or drug abuse patient.[facility] CenterIn the event this information is protected by the Federal Confidentiality of Alcohol and Drug Abuse Patient Records regulations: The Federal rules restrict any use of the information to criminally investigate or prosecute any alcohol or drug abuse patient.[facility] CenterIn the event this information is protected by the Federal Confidentiality of Alcohol and Drug Abuse Patient Records regulations: The Federal rules restrict any use of the information to criminally investigate or prosecute any alcohol or drug abuse patient.[facility] CenterIn the event this information is protected by the Federal Confidentiality of Alcohol and Drug Abuse Patient Records regulations: The Federal rules restrict any use of the information to criminally investigate or prosecute any alcohol or drug abuse patient.[facility] CenterIn the event this information is protected by the Federal Confidentiality of Alcohol and Drug Abuse Patient Records regulations: The Federal rules restrict any use of the information to criminally investigate or prosecute any alcohol or drug abuse patient.[facility] CenterIn the event this information is protected by the Federal Confidentiality of Alcohol and Drug Abuse Patient Records regulations: The Federal rules restrict any use of the information to criminally investigate or prosecute any alcohol or drug abuse patient.[facility] CenterIn the event this information is protected by the Federal Confidentiality of Alcohol and Drug Abuse Patient Records regulations: The Federal rules restrict any use of the information to criminally investigate or prosecute any alcohol or drug abuse patient.[facility] CenterIn the event this information is protected by the Federal Confidentiality of Alcohol and Drug Abuse Patient Records regulations: The Federal rules restrict any use of the information to criminally investigate or prosecute any alcohol or drug abuse patient.[facility] CenterIn the event this information is protected by the Federal Confidentiality of Alcohol and Drug Abuse Patient Records regulations: The Federal rules restrict any use of the information to criminally investigate or prosecute any alcohol or drug abuse patient.[facility] CenterIn the event this information is protected by the Federal Confidentiality of Alcohol and Drug Abuse Patient Records regulations: The Federal rules restrict any use of the information to criminally investigate or prosecute any alcohol or drug abuse patient.[facility] CenterIn the event this information is protected by the Federal Confidentiality of Alcohol and Drug Abuse Patient Records regulations: The Federal rules restrict any use of the information to criminally investigate or prosecute any alcohol or drug abuse patient.[facility] CenterIn the event this information is protected by the Federal Confidentiality of Alcohol and Drug Abuse Patient Records regulations: The Federal rules restrict any use of the information to criminally investigate or prosecute any alcohol or drug abuse patient.[facility] CenterIn the event this information is protected by the Federal Confidentiality of Alcohol and Drug Abuse Patient Records regulations: The Federal rules restrict any use of the information to criminally investigate or prosecute any alcohol or drug abuse patient.[facility] CenterIn the event this information is protected by the Federal Confidentiality of Alcohol and Drug Abuse Patient Records regulations: The Federal rules restrict any use of the information to criminally investigate or prosecute any alcohol or drug abuse patient.[facility] CenterIn the event this information is protected by the Federal Confidentiality of Alcohol and Drug Abuse Patient Records regulations: The Federal rules restrict any use of the information to criminally investigate or prosecute any alcohol or drug abuse patient.[facility] CenterIn the event this information is protected by the Federal Confidentiality of Alcohol and Drug Abuse Patient Records regulations: The Federal rules restrict any use of the information to criminally investigate or prosecute any alcohol or drug abuse patient.[facility] CenterIn the event this information is protected by the Federal Confidentiality of Alcohol and Drug Abuse Patient Records regulations: The Federal rules restrict any use of the information to criminally investigate or prosecute any alcohol or drug abuse patient.[facility] CenterIn the event this information is protected by the Federal Confidentiality of Alcohol and Drug Abuse Patient Records regulations: The Federal rules restrict any use of the information to criminally investigate or prosecute any alcohol or drug abuse patient.[facility] CenterIn the event this information is protected by the Federal Confidentiality of Alcohol and Drug Abuse Patient Records regulations: The Federal rules restrict any use of the information to criminally investigate or prosecute any alcohol or drug abuse patient.[facility] CenterIn the event this information is protected by the Federal Confidentiality of Alcohol and Drug Abuse Patient Records regulations: The Federal rules restrict any use of the information to criminally investigate or prosecute any alcohol or drug abuse patient.[facility] CenterIn the event this information is protected by the Federal Confidentiality of Alcohol and Drug Abuse Patient Records regulations: The Federal rules restrict any use of the information to criminally investigate or prosecute any alcohol or drug abuse patient.[facility] CenterIn the event this information is protected by the Federal Confidentiality of Alcohol and Drug Abuse Patient Records regulations: The Federal rules restrict any use of the information to criminally investigate or prosecute any alcohol or drug abuse patient.[facility] CenterIn the event this information is protected by the Federal Confidentiality of Alcohol and Drug Abuse Patient Records regulations: The Federal rules restrict any use of the information to criminally investigate or prosecute any alcohol or drug abuse patient.[facility] CenterIn the event this information is protected by the Federal Confidentiality of Alcohol and Drug Abuse Patient Records regulations: The Federal rules restrict any use of the information to criminally investigate or prosecute any alcohol or drug abuse patient.[facility] CenterIn the event this information is protected by the Federal Confidentiality of Alcohol and Drug Abuse Patient Records regulations: The Federal rules restrict any use of the information to criminally investigate or prosecute any alcohol or drug abuse patient.[facility] CenterIn the event this information is protected by the Federal Confidentiality of Alcohol and Drug Abuse Patient Records regulations: The Federal rules restrict any use of the information to criminally investigate or prosecute any alcohol or drug abuse patient.[facility] CenterIn the event this information is protected by the Federal Confidentiality of Alcohol and Drug Abuse Patient Records regulations: The Federal rules restrict any use of the information to criminally investigate or prosecute any alcohol or drug abuse patient.[facility] CenterIn the event this information is protected by the Federal Confidentiality of Alcohol and Drug Abuse Patient Records regulations: The Federal rules restrict any use of the information to criminally investigate or prosecute any alcohol or drug abuse patient.[facility] CenterIn the event this information is protected by the Federal Confidentiality of Alcohol and Drug Abuse Patient Records regulations: The Federal rules restrict any use of the information to criminally investigate or prosecute any alcohol or drug abuse patient.[facility] CenterIn the event this information is protected by the Federal Confidentiality of Alcohol and Drug Abuse Patient Records regulations: The Federal rules restrict any use of the information to criminally investigate or prosecute any alcohol or drug abuse patient.[facility] CenterIn the event this information is protected by the Federal Confidentiality of Alcohol and Drug Abuse Patient Records regulations: The Federal rules restrict any use of the information to criminally investigate or prosecute any alcohol or drug abuse patient.[facility] CenterIn the event this information is protected by the Federal Confidentiality of Alcohol and Drug Abuse Patient Records regulations: The Federal rules restrict any use of the information to criminally investigate or prosecute any alcohol or drug abuse patient.[facility] CenterIn the event this information is protected by the Federal Confidentiality of Alcohol and Drug Abuse Patient Records regulations: The Federal rules restrict any use of the information to criminally investigate or prosecute any alcohol or drug abuse patient.[facility] CenterIn the event this information is protected by the Federal Confidentiality of Alcohol and Drug Abuse Patient Records regulations: The Federal rules restrict any use of the information to criminally investigate or prosecute any alcohol or drug abuse patient.[facility] CenterIn the event this information is protected by the Federal Confidentiality of Alcohol and Drug Abuse Patient Records regulations: The Federal rules restrict any use of the information to criminally investigate or prosecute any alcohol or drug abuse patient.[facility] CenterIn the event this information is protected by the Federal Confidentiality of Alcohol and Drug Abuse Patient Records regulations: The Federal rules restrict any use of the information to criminally investigate or prosecute any alcohol or drug abuse patient.[facility] CenterIn the event this information is protected by the Federal Confidentiality of Alcohol and Drug Abuse Patient Records regulations: The Federal rules restrict any use of the information to criminally investigate or prosecute any alcohol or drug abuse patient.[facility] CenterIn the event this information is protected by the Federal Confidentiality of Alcohol and Drug Abuse Patient Records regulations: The Federal rules restrict any use of the information to criminally investigate or prosecute any alcohol or drug abuse patient.[facility] CenterIn the event this information is protected by the Federal Confidentiality of Alcohol and Drug Abuse Patient Records regulations: The Federal rules restrict any use of the information to criminally investigate or prosecute any alcohol or drug abuse patient.[facility] Reason for Visit (unrecogniz ed section and content) Reason Comments Established Patient Specialty Diagnoses / Procedures Referred By Contac t Referred To Contact Hematology/Oncology / HEMATOLOGY/ONCOLOGY Diagnoses Malignant neoplasm of right kidney, except renal pelvis STUDY PT IRB [id number] ([facility] 1720) C64.1 NCT [id number] PER SLIP Procedures OFFICE/OUTPATIENT ESTABLISHED MOD MDM 30-39 MIN EST PATIENT/[place] [address] [address] [place] [id number] Godfrey Ohara, ETIQUETTE TEACHER.BELLOWS FILLER [address], [address] [place] [address] Referral ID Status Reason Start Date Expiration Date Visits Requested Visits Authorized [id number] Denied Financial Clearance Required - OON Payor OON Notification Letter Clearance Not Met - Admin/Gizzard Peeler/D irector Advise to Postpone/Resched ule or Not [...] INSERT INTRACORONARY STENT-PER MAJOR VESSEL OR BRANCH [facility] [employer]ment Manager [address] [place] [address] Referral ID Status Reason Start Date Expiration Date Visits Re quested Visits Authorized [id number] [address] Specialty Diagnoses / Procedures Referred By Contac t Referred To Contact CT IMAGING Diagnoses Malignant neoplasm of right kidney, except renal pelvis (HCC) Renal cell carcinoma, unspecified laterality (HCC) Procedures CT CHEST W IVCON DIAGNOSTIC COMPUTED TOMOGRAPHY THORAX W/CONTRAST Kenneth Chester MD [address] [place] [address] Ct Imaging Referral ID Status Reason Start Date Expiration Date V isits Requested Visits Authorized [id number] Closed Auto-Generate d Referral 07/14/2021 08/28/2021 1 1 Reason Comments Results Reason Comments New Patient Reason Comments Biopsy Request Specialty Diagnoses / Procedures Referred By Contac t Referred To Contact RADIO CT SCAN [facility] Diagnoses Malignant neoplasm of kidney, unspecified laterality (HCC) Malignant neoplasm of kidney excluding renal pelvis, unspecified laterality (HCC) Procedures CT ABD/PEL W IVCON CT ABD & PELVIS W/CONTRAST Adriana Hodge MD [address] [place] [address] [facility] [address] [address] [place] [address] Referral ID Status Reason Start Date Expiration Date V isits Requested Visits Authorized [id number] Closed Auto-Generate d Referral 06/26/2021 08/10/2021 1 1 Specialty Diagnoses / Procedures [facility] Diagnoses Malignant neoplasm of kidney, unspecified laterality (HCC) Malignant neoplasm of kidney excluding renal pelvis, unspecified laterality (HCC) Procedures CT ABD/PEL WO IVCON CT ABD & PELVIS W/O CONTRAST Adriana Hodge MD [address] [place] [address] Ct Imaging Referral ID Status Reason Start Date Expiration Date Visits Requested Visits Authorized [id number] Waiting for Response Auto-Genera mandeep Referral Patient Cleared - Admin/Chair man/Directo r advise to proceed 06/26/2021 08/10/2021 1 1 Reason Comments Radiology [place] Specialty Diagnoses / Procedures [facility] Referred To Contact MOLECULAR & FUNCTIONAL IMAGING Diagnoses Malignant neoplasm of kidney, unspecified laterality (HCC) Malignant neoplasm of kidney excluding renal pelvis, unspecified laterality (HCC) Procedures NM BONE WHOLE BODY BONE &/JOINT IMAGING WHOLE BODY Adriana Hodge MD [address] [place] [address] Molecular & Functional Imaging [address] [place] [address] Referral ID Status Reason Start Date Expiration Date V isits Requested Visits Authorized [id number] Closed Auto-Generate d Referral 06/26/2021 08/10/2021 2 2 Reason Comments Consult Specialty Diagnoses / Procedures Referred By [facility] t Referred To Contact Oncology Diagnoses Malignant neoplasm of kidney, unspecified laterality (HCC) Malignant neoplasm of kidney excluding renal pelvis, unspecified laterality (HCC) Procedures CONSULT TO ONCOLOGY OFFICE/OUTPATIENT NEW HIGH MDM 60-74 MINUTES Adriana Hodge MD [address] [place] [address] Referral ID Status Reason Start Date Expiration Date V isits Requested Visits Authorized [id number] Closed PCP Requested Referral 06/23/2021 06/23/2022 1 1 Reason Comments Research [facility] 1820 Reason Comments Benefits Investigation Reason Comments Radiology MRI Specialty Diagnoses / Procedures [facility] Referred To Contact MR IMAGING Diagnoses Malignant neoplasm of kidney excluding renal pelvis, unspecified laterality (HCC) Renal cell carcinoma, unspecified laterality (HCC) Procedures MRI BRAIN WO/W IVCON MRI BRAIN BRAIN STEM W/O W/CONTRAST MATERIAL Kenneth Chester MD [address] [place] [address] Mr Imaging Referral ID Status Reason Start Date Expiration Date V isits Requested Visits Authorized [id number] Closed Auto-Generate d Referral 07/14/2021 08/28/2021 1 1 Reason Comments Shortness of Breath Hypertension Reason Comments Patient Education lisa Reason Comments Patient Education Reason Comments Blood Pressure Reason Comments Refill Request Reason Onset Date Comments Opened In Error 08/18/2021 Reason Comments Results Patient Update Fine Grader - Other Reason Comments Established Patient Specialty Diagnoses / Procedures Referred By [facility] Referred To Contact CT IMAGING Diagnoses SOB (shortness of breath) Procedures CT CHEST W IVCON PE DIAGNOSTIC COMPUTED TOMOGRAPHY THORAX W/CONTRAST Daksha Melo, PA-C [address] [place] [address] Ct Imaging Referral ID Status Reason Start Date Expiration Date Visits Requested Visits Authorized [id number] Pending Review Auto-Generat ed Referral 09/02/2021 10/02/2022 1 1 Reason Comments Radio Gen [id number] Reason Comments Patient Update Reason Comments Fine Grader - Other Reason Comments Patient Question Reason [...] see if surgery is rescheduled. Reason Comments Fine Grader - Other Calling to get an update on the patient's surgery schedule (to see if it had been rescheduled), and to inform him that the speciality pharmacy is trying to get a hold of them to deliver his medication. Reason Comments Recheck Specialty Diagnoses / Procedures Referred By Sujatha vasquez Referred To Contact HEMATOLOGY/ONCOLOGY Diagnoses c64.1 Procedures OFFICE VISIT Haylee Wilburn MD [address] [email or web address] [address] [address] [facility] [address] [address] Referral ID Status Reason Start Date Expiration Date V isits Requested Visits Authorized [id number] Closed Financial Clearance Not Required Patient Cleared - INN Insurance Found 10/23/2021 03/07/2022 [address] Specialty Diagnoses / Procedures Referred By Sujatha vasquez Referred To Contact CT IMAGING Diagnoses [id number] neoplasm of right kidney, except renal pelvis (HCC) Procedures CT CHEST W IVCON CT ABD/PEL W IVCON Adriana Hodge MD [address] [place] [address] Ct Imaging Referral ID Status Reason Start Date Expiration Date Visits Requested Visits Authorized [id number] Closed Financial Clearance Required - OON Payor OON Notification Letter Patient Cleared - Admin/Gizzard Peeler/D irector advise to proceed 11/17/2021 01/16/2022 1 [...] Procedures Consult and Treat Karin Cox MD [address] [place] [address] Alfredo Xavier MD [address] [address] Referral ID Status Reason Start Date Expiration Date Visits Requested Visits Authorized [id number] Pending Review OON/Self Pay Override 12/03/2021 03/03/2022 1 1 Reason Comments New patient, to establish relationship Invalid number Letter Request Reason Comments Fine Grader - Other Patient Update Reason Comments Informed Consent Reason Onset Date Comments Refill Request 01/22/2022 Specialty Diagnoses / Procedures Referred By Sujatha vasquez Referred To Contact RADIATION ONCOLOGY Diagnoses Renal Cell ca Procedures OFFICE CONSULTATION NEW/ESTAB PATIENT 60 MIN monitor patient after completion of radiation treatment Suman Peterson, [facility] [address] [place] [address] [place] [address] Referral ID Status Reason Start Date Expiration Date V isits Requested Visits Authorized [id number] Closed OON/Self Pay Override Patient Cleared - INN Insurance Found 12/26/2021 03/26/2022 1 1 Reason Comments New Patient self-referral ANÍBAL connie C.C.M.HJohn in [place].Reason for visit: hospital discharge from, 09-30-21 for new onset A. fib/RVRCardiac: 01/19/2022 EKG / 09/26/2021 Echo / 09/25/2021 EPS: Cardioversion08/05/2021 cardiac cathTelemetry: 09/26/2021 image of EKGLab work: 01/23/2022 through 06/20/2021Imagin01/19/2022 x-ray of the chest /11/20/2021 CT of the chestNote/strands: 09/22 - 09/30/2021 discharge summary Specialty Diagnoses / Procedures Referred By Contac t Referred To Contact CARDIOLOGY Diagnoses Self-referral Procedures FOLLOW-UP/REASSESSMENT Daksha Turner MD [address] [place] [address] [address] [facility] Courtney Cee [address] [address] Referral ID Status Reason Start Date Expiration Date V isits Requested Visits Authorized [id number] Closed OON/Self Pay Override Patient Cleared - INN Insurance Found 12/25/2021 02/23/2022 1 1 Specialty Diagnoses / Procedures Referred By Contac t Referred To Contact HEMATOLOGY/ONCOLOGY Diagnoses Renal cell carcinoma of right kidney (HCC) Metastatic renal cell carcinoma (HCC) Procedures OFFICE VISIT W HEM/ONC Haylee Wilburn MD [address] [place] [address] [place] [address] Referral ID Status Reason Start Date Expiration Date V isits Requested Visits Authorized [id number] Closed OON/Self Pay Override Patient Cleared - INN Insurance Found 02/12/2022 04/13/2022 1 1 Reason Comments Recheck Specialty Diagnoses / Procedures Referred By Sujatha t Referred To Contact HEMATOLOGY/ONCOLOGY Diagnoses Malignant neoplasm of unspecified kidney, except renal pelvis Procedures OFFICE/OUTPATIENT ESTABLISHED MOD MDM 30-39 MIN Haylee Wilburn MD [address] [place] [address] [address] [facility] [place] [address] Referral ID Status Reason Start Date Expiration Date Visits Requested Visits Authorized [id number] Pending Review OON/Self Pay Override 03/11/2022 06/09/2022 1 1 Reason Onset Date Comments SPP Oral Oncology/hematology - Treatment Referra l 03/12/2022 Inlyta Insurance Authorization 03/12/2022 Pending PA Reason Comments Appointment Reason Onset Date Comments Refill Request 03/16/2022 In[facility]ta to [facility] Reason Comments Appointment Fine Grader - Other Specialty Diagnoses / Procedures Referred By Contac t Referred To Contact CT IMAGING Diagnoses Renal cell carcinoma of right kidney (HCC) Procedures CT CHEST W IVCON DIAGNOSTIC COMPUTED TOMOGRAPHY THORAX W/CONTRAST Haylee Wilburn MD [address] [email or web address] [address] Ct Imaging Referral ID Status Reason Start Date Expiration Date V isits Requested Visits Authorized [id number] Closed Auto-Generat ed Referral Clearance Not Met [...] BE BASED ON THE PRIMARY CLINICAL RECORDS. [employer] provides no warranty or guarantee of the accuracy or completeness of information in this document.
[2024-11-13] MEDS: Norepinephrine Bit/0.9% NaCl 8 MG/250 ML IV.SOLN 9.4 MG CONT INF (04:39)
[2024-11-13 05:15] LABS: Hematocrit 39.1 % (40-54); Hemoglobin 13.2 g/dL (13.0-16.5); Immature Granulocytes Count 0.040 X10^3/uL (0.0-0.0); Mean Corp Hgb Conc 33.8 g/dL (32-36); Mean Corpuscular Volume 98.2 fL (80-94); Mean Platelet Vol. 10.2 fl (6.2-12.0); NRBC Flagged by Analyzer 0 % (0-5); POSITIVE MORPHOLOGY YES; Platelet Count 287 K/mm3 (150-450); RBC Distribution Width CV 18.5 % (11.6-14.6); RBC Distribution Width SD 65.9 fl (35.1-43.9); Red Blood Count 3.98 M/mm3 (4.6-6.2); White Blood Count 9.4 K/mm3 (4.4-11.0)
[2024-11-13 05:22] LABS: Differential Indicated SCAN CRITERIA MET
--- NOTE | 2024-11-13 05:54 | PCMCONS.TICU ---
HPI Consult Data Date of Consult: 11/13/24 HPI Narrative HPI Narrative: Mr. Deven Vega is a 59-year-old male with extensive comorbidities who was recently discharged on November 21 following an admission for chronic diarrhea. He initially improved after discharge but, two days prior to his current presentation, experienced a syncopal episode while attempting to use the toilet. On arrival to the emergency department, he was hypotensive with blood pressures in the 80s/50s, accompanied by weakness and ongoing watery diarrhea. EMS suspected the diarrhea might be related to his use of Ozempic or Farxiga. He received two liters of intravenous fluids for presumed sepsis and was started on norepinephrine at 5 mcg/min due to persistent hypotension. Stool studies, including C. difficile, an enteric pathogen panel, and ova/parasite testing, were sent and are pending. In the ICU, he continues to have frequent diarrhea. His blood pressure is being maintained with norepinephrine at 5 mcg/min, and he is receiving maintenance normal saline at 75 mL/hr. He denies abdominal pain, his abdomen is non-tender with present bowel sounds, and no antibiotics have been started at this time. [facility] Medical History Diabetes mellitus, type 2 Obesity (BMI 30.0-34.9) HLD (hyperlipidemia) Anemia Atrial fibrillation CKD (chronic kidney disease), stage III Systolic CHF Tobacco use NIMCO on CPAP Metastatic renal cell carcinoma to bone Renal cell cancer Hyperlipidemia GERD (gastroesophageal reflux disease) COPD (chronic obstructive pulmonary disease) Hypertension Home Medications ?Medication ?Instructions ?Recorded ?Last Taken ?Type albuterol sulfate 2.5 mg/3 mL 2.5 mg (3 mL) inhalation PRN PRN 06/29/22 Unknown Rx (0.083 %) solution for nebulization Shortness Of Breath #75 mL ferrous sulfate 325 mg (65 mg 325 mg PO BID supplement #30 tabs 06/29/22 Unknown Rx iron) tablet fluticasone fur. 100 mcg-umeclid 1 inh inhalation DAILY breathing 06/29/22 Unknown Rx 62.5 mcg-vilant 25 mcg #28 ea inhalat.powder (Trelegy Ellipta) pantoprazole 40 mg tablet,delayed 40 mg PO DAILY gerd #30 tabs 06/29/22 Unknown Rx release rosuvastatin 40 mg tablet 40 mg PO DAILY cholesterol #30 tabs 06/29/22 Unknown Rx losartan 50 mg tablet 50 mg PO DAILY blood pressure #90 09/29/22 Unknown Rx tabs spironolactone 25 mg tablet 25 mg PO DAILY diuretic #90 tabs 09/29/22 Unknown Rx carvedilol 12.5 mg tablet 12.5 mg PO BID blood pressure #180 06/04/24 Unknown Rx TABLETS semaglutide 0.25 mg or 0.5 mg (2 2 mg subcut QWEEK diabetes 06/20/24 Unknown History mg/3 mL) subcutaneous pen injector (Ozempic) cabozantinib 20 mg tablet 20 mg PO QDAY cancer 08/09/24 Unknown History apixaban 5 mg tablet (Eliquis) 5 mg PO BID blood thinner #60 tabs 08/14/24 Unknown Rx Handicap Placard #1 ea 10/02/24 Unknown Rx bumetanide 2 mg tablet 2 mg PO ONCE water pill 10/02/24 Unknown History calcitriol 0.25 mcg capsule 0.25 mcg PO QDAY supplement 10/02/24 Unknown History dapagliflozin propanediol 5 mg 5 mg PO QDAY CKD 10/02/24 Unknown History tablet (Farxiga) tizanidine 4 mg capsule 4 mg PO Q8H PRN muscle spasticity 10/02/24 Unknown History loperamide 2 mg capsule 2 mg PO 4X/DAY PRN PRN diarrhea 10/19/24 Unknown History mirtazapine 15 mg tablet 15 mg PO QHS antidepressant 10/19/24 Unknown History Allergy/AdvReac Type Severity Reaction Status Date / Time lisinopril Allergy Severe Angioedema Verified 11/13/24 01:34 guaifenesin (From Mucinex) Allergy Intermediate Bleeding Verified 11/13/24 01:34 aspirin (ASA) Allergy Other Verified 11/13/24 01:34 mushroom (mushrooms) Allergy Hives Verified 11/13/24 01:34 Penicillins Allergy PT UNSURE Verified 11/13/24 01:34 OF REACTION shellfish derived Allergy Hives Verified 11/13/24 01:34 Family History Father Cancer Mother Heart disease Hypertension Myocardial infarction Surgical History History of cardiac cath (~07/2021) History of cardioversion (~09/2021) History of nephrectomy, right Social History household members: spouse and family Smoking Status: Current every day smoker tobacco type: cigarettes Electronic Cigarette Use: with nicotine alcohol intake: current alcohol intake frequency: holidays/special occasions only substance use type: does not use ROS ROS Narrative General: fatigue, syncope episode CV: hypotension Resp: denies acute SOB, lungs sound clear per nurse GI: chronic diarrhea, no abdominal pain, bowel sounds present : reports urination but at risk of pre-renal VIMAL Neuro: syncope episode, otherwise alert/oriented Other: denies new fevers or chills Objective Data Objective Data Vital Signs: Vital Signs Last response Temperature 36.6 C 11/13/24 03:42 Temperature Source Oral 11/13/24 01:25 Pulse Rate 82 11/13/24 04:30 Respiratory Rate 19 H 11/13/24 04:30 Blood Pressure 90/66 11/13/24 04:30 Blood Pressure Mean 74 11/13/24 04:30 Pulse Ox 99 11/13/24 04:30 Oxygen Delivery Method Nasal Cannula 11/13/24 04:30 Oxygen Flow Rate (L/min) 3 11/13/24 04:30 I&O: I&O Last 24 Hours 11/12/24 11/12/24 11/13/24 11:59 23:59 11:59 Intake Total 2350 / 2350 Output Total 75 / 75 Balance 2275 / 2275 I&O: Total Stay 11/13/24 01:24 thru 11/13/24 05:49 Intake Total 2350 Output Total 75 Balance 2275 Current Meds Ordered / Administered: Current meds ordered / Administered Generic Name Dose Route Start Last Admin Trade Name Freq PRN Reason Stop Dose Admin Acetaminophen 650 mg 11/13/24 04:50 Acetaminophen 325 Mg Tablet PO Q4H PRN PRN Fever, pain 1-10/10 Al Hydroxide/Mg Hydroxide 30 ml 11/13/24 04:50 Mag Hydrox/Al Hydrox/Simeth 30 Ml Udc PO Q6H PRN PRN Gastric Burning Albuterol Sulfate 2.5 mg 11/13/24 04:50 Albuterol 2.5 Mg/3 Ml Vial.Neb. INHALATION Q2H PRN PRN Dyspnea, wheezing Atorvastatin Calcium 80 mg 11/13/24 22:00 Atorvastatin Calcium 80 Mg Tablet PO QHS [facility] Calamine/Phenol 1 applic 11/13/24 10:00 Menthol/Lanolin/Calamine/Znox 113 Gm Tube TOPICAL 4X/DAY [facility] Protocol Calcitriol 0.25 mcg 11/13/24 10:00 Calcitriol 0.25 Mcg Capsule PO DAILY [facility] Ferrous Sulfate 325 mg 11/13/24 12:00 Ferrous Sulfate 325 Mg Tablet PO 1200,1700 [facility] Glucagon 1 mg 11/13/24 04:50 Glucagon 1 Mg/Ml Syringe IM X1 PRN HYPOGLYCEMIA Protocol Norepinephrine Bitartrate 8 mg in 250 mls @ 9.375 mls/hr 11/13/24 04:30 11/13/24 04:39 CONT INF 5 mcg/min .[id number] [facility] 9.4 mls/hr Administration Protocol 5 MCG/MIN Sodium Chloride 1,000 mls @ 75 mls/hr 11/13/24 04:50 IV 11/13/24 18:09 .[id number] [facility] Dextrose 250 mls @ 0 mls/hr 11/13/24 04:50 Dextrose 10%-Water IV .Q0M PRN HYPOGLYCEMIA Protocol As Directed Sodium Chloride 250 mls @ 15 mls/hr 11/13/24 05:06 IV .[id number] PRN Saline Flush Sodium Chloride 250 mls @ 15 mls/hr 11/13/24 05:06 IV .[id number] PRN Additional IVPB Infusion Insulin Human Lispro 0 unit 11/13/24 07:00 Insulin Lispro 100 Unit/Ml Insuln.Pen SC ACHS [facility] Protocol Loperamide HCl 2 mg 11/13/24 04:50 Loperamide 2 Mg Capsule PO 4X/DAY PRN PRN diarrhea Melatonin 3 mg 11/13/24 04:50 Melatonin 3 Mg Tablet PO QHS PRN PRN INSOMNIA Mirtazapine 15 mg 11/13/24 22:00 Mirtazapine 15 Mg Tablet PO QHS [facility] Ondansetron HCl 4 mg 11/13/24 04:50 Ondansetron 4 Mg/2 Ml Vial IV Q8H PRN PRN NAUSEA/VOMITING Pantoprazole Sodium 40 mg 11/13/24 10:00 Pantoprazole Sodium 40 Mg Tablet PO DAILY [facility] Sodium Chloride 10 - 40 ml 11/13/24 05:06 0.9% Saline Lock 10 Ml Syringe IV UD PRN SALINE FLUSH Physical Exam Narrative General: Ill-appearing but conversant; in bed, hemodynamically supported with norepinephrine HEENT: not described CV: tachycardia not reported; BP supported on pressors Resp: lungs clear, non-labored GI: abdomen soft, non-tender, active bowel sounds : making urine, though renal function impaired Neuro: alert, oriented, conversant Skin: no rashes noted Lab / Micro Data 11/13/24 05:08 11/13/24 01:35 Labs: Laboratory Results - last 24 hr 11/13/24 01:35: WBC 7.7, RBC 4.23 L, Hgb 13.8, Hct 40.6, MCV 96.0 H, MCH 32.6 H, MCHC 34.0, RDW Std Deviation 63.6 H, RDW Coeff of Lizzie 18.3 H, Plt Count 325, MPV 10.1, Immature Gran % (Auto) 0.400, Neut % (Auto) 70.0, Lymph % (Auto) 15.7 L, [place] % (Auto) 8.2, Eos % (Auto) 5.4 H, Baso % (Auto) 0.3, Absolute Neuts (auto) 5.4, Absolute Lymphs (auto) 1.21, Nucleated RBC % 0, PT 19.6 H, INR 1.6, APTT 30.0, Sodium 135, Potassium 4.2, Chloride 99, Carbon Dioxide 19.4 L, Anion Gap 17 H, BUN 38 H, Creatinine 3.76 H, Estim Creat Clear Calc 26.15 L, Est GFR (MDRD) Non-Af 18 L, BUN/Creatinine Ratio 10.1, Glucose 100 H, Calcium 9.0, Phosphorus 3.4, Magnesium 1.7, Total Bilirubin 0.72, Direct Bilirubin 0.31 H, AST 44 H, ALT 46, Alkaline Phosphatase 51, NT pro BNP II 540, Total Protein 6.9, Albumin 3.8, Globulin 3.1, Blood Type O POSITIVE, Antibody Screen NEGATIVE 11/13/24 05:08: WBC 9.4, RBC 3.98 L, Hgb 13.2, Hct 39.1 L, MCV 98.2 H, MCH 33.2 H, MCHC 33.8, RDW Std Deviation 65.9 H, RDW Coeff of Lizzie 18.5 H, Plt Count 287, MPV 10.2, Immature Gran % (Auto) 0.400, Neut % (Auto) 74.3 H, Lymph % (Auto) 12.4 L, [place] % (Auto) 7.6, Eos % (Auto) 5.2 H, Baso % (Auto) 0.1, Absolute Neuts (auto) 7.0, Absolute Lymphs (auto) 1.16, Nucleated RBC % 0 Micro: Microbiology 11/13/24 01:53 Mucosa - Nose SARS-CoV-2, Influenza & RSV (PCR) - Final Imaging Radiology Impression Brain CT 11/13/24 02:12 IMPRESSION: No CT evidence for acute brain abnormality. Moderate chronic mucosal inflammatory changes of the left maxillary sinus with associated secretions suggestive of acute sinusitis. Reading Location: [place] [address] Chest X-Ray 11/13/24 02:15 IMPRESSION: 1. No acute cardiopulmonary findings. 2. Expansile mass associated with the right lateral 6th rib. Reading Location: [facility] Chest CT 11/13/24 02:40 IMPRESSION: Coronary artery calcification (CAC) is is present Unchanged expansile lytic/destructive lesion in the axillary portion of the right 6th rib measuring 3.5 x 4.9 cm, possibly metastatic disease. Moderate coronary artery calcifications. Diffuse spondylosis. Unchanged cardiomegaly. Unchanged mild pericardial effusion. Reading Location: [place] [address] Assessment and Plan . Assessment and plan: 1. Hypotension / Shock Hypotensive, requiring norepinephrine despite fluids. Plan: Maintain MAP >=5 with norepinephrine; titrate to lowest effective dose. Strict I&O, [place] for UOP monitoring. Serial lactate, BMP. Continue IV fluids cautiously Evaluate for infectious diarrhea Early empiric antibiotics if fever, leukocytosis, or septic features worsen. 2. Recurrent diarrhea Likely multifactorial Plan: Hold Ozempic and Farxiga. Supportive hydration. Send stool C. diff, enteric panel, ova/parasites. Antimotility agents once infection ruled out. GI consult if persistent. 3. Acute kidney injury Pre-renal VIMAL due to volume loss. Plan: Volume resuscitation as tolerated. Avoid nephrotoxins. Monitor creatinine, UOP closely. Renal consult if progressive. 4. Metastatic renal cell carcinoma Known with metastasis to bone/chest. Plan: Continue outpatient oncology follow-up Supportive care in ICU; no acute intervention here. 5. Heart failure with reduced EF Pressor and fluid resuscitation increase risk of decompensation. Plan: Monitor for pulmonary edema. Avoid fluid overload. Resume guideline-directed therapy when stable 6. Chronic anemia Likely multifactorial Plan: Monitor H/H. Transfuse if <7 or symptomatic. 7. Chronic conditions Resume meds as tolerated. CPAP at night once stable. Inhalers continued.
[2024-11-13] MEDS: 0.9% Normal Saline (1000mL) 1,000 ML 75 ML IV (05:57)
[2024-11-13] MEDS: Lactobacillis Acidophilus 1 CAP PO ×3 (05:57→21:02)
[2024-11-13 06:26] LABS: Creatinine, Urine (random) 358.00 mg/dL (39.00-259.00)
[2024-11-13 06:49] LABS: Vacuolated Cells 1+
[2024-11-13 06:50] LABS: Anisocytosis 2+; Polychromasia 1+; Schistocytes RARE
[2024-11-13 07:38] LABS: AST(SGOT) 49 U/L (<=37); Alanine Aminotransfer ALT/SGPT 42 U/L (<=46); Albumin, Serum 3.6 g/dL (3.4-4.8); Alkaline Phosphatase 46 U/L (40-129); Anion Gap 17 (5-15); BUN 37 mg/dL (4-19); BUN/Creat Ratio 10.5 RATIO (10-20); Calcium,Total 8.2 mg/dL (7.6-11.0); Carbon Dioxide 18.7 mmol/L (21.0-32.0); Chloride 101 mmol/L (98-108); Estimated Creatinine Clearance 28.66 ml/min (50-250); Globulin 2.8 g/dL (2.2-4.2); Glucose 93 mg/dL (70-99); Potassium 5.6 mmol/L (3.3-5.1); Procalcitonin 0.34 ng/mL (<=0.10)
[2024-11-13] MEDS: Albuterol 2.5 MG/3 ML VIAL.NEB. INHALATION ×2 (11:31→19:45)
--- NOTE | 2024-11-13 12:22 | RAD_ITS ---
PROCEDURE: CXR FOR LINE PLACEMENT 11/13/2024 REASON FOR EXAM: PICC PLACEMENT TECHNIQUE: Procedure Code: [id number] Modality: DX Procedure: CXR FOR LINE PLACEMENT COMPARISON: Prior study dated November 13/2025 done earlier in the day. FINDINGS: Bones: There is a 5.9 cm 3.1 cm mass expansile lytic lesion overlying the right 6 rib. A right-sided PICC line catheter has been placed with the tip in the midportion of the superior vena cava. EKG electrodes are seen. RAD/CXR for Line Placement IMPRESSION: A right-sided PICC line catheter has been placed with the tip in the midportion of the superior vena cava. Stable expansile lesion overlying the right 6th rib. Reading Location: [facility]
--- NOTE | 2024-11-13 14:44 | CASEMGMT ---
JONH ROQUE Readmission Chart Review Index: 10/19-. Dx: Diarrhea, Hypotension, Hx of Nephrectomy Current: 11/13/24. Dx: Syncope, VIMAL, diarrhea From the index admission, the patient was discharged home with his family without any additional needs. The patient wears home oxygen through [employer] at 3L continuous. The patient presents to [facility] with syncope and continual diarrhea. Patient was admitted to the ICU for further management as he requires levo for his blood pressure. JOHN ROQUE to the patient room at this time. Patient states that he was able to wear his oxygen at home accordingly. Patient states that he was able to take all of his prescription medication, including Eliquis. Patient states that he did follow up with his PCP as well as his GI doctor. Moving forward, the patient states that he plans to return home at the time of discharge with the support of his . Patient states that he also lives at home with his [id number] and daughter. Patient states that he feels safe returning home with this support and denies the need for home healthcare, community care network, or outpatient therapy. Patient denies any further questions or concerns at the time. Abdirahman ALARCON RN, CM
[2024-11-13 16:21] LABS: Mucous, Urine 0 SEEN /hpf (<or=2+)
[2024-11-13 16:49] LABS: Color, Urine Yellow (Yellow); Glucose, Dipstick Normal (Normal); Ketone-Dipstick Negative (Negative); Leukocyte Esterase-Dipstick 25 /ul (Negative); Nitrite-Dipstick Negative (Negative); Occult Blood-Urine 10 /ul (Negative); Protein-Dipstick 100 mg/dl (Negative); Specific Gravity, Urine 1.020 (1.002-1.030)
[2024-11-13 16:55] LABS: Urine Bilirubin Dipstick 1 mg/dL (Negative)
[2024-11-13 19:10] LABS: Squamous Epithelial Cells - UA 10-25 SEEN /hpf (0-5)
[2024-11-13 19:11] LABS: Red Blood Cells-Urine 0-5 SEEN /hpf (0-5)
[2024-11-14] VITALS (13 sets, daily range): BP systolic 105–129; BP diastolic 68–108; PULSE 73–96; RESP 18–26; TEMP 36.1–36.6; O2SAT 97–100; BMI 35.6
[2024-11-14 03:55] LABS: Differential Indicated SCAN CRITERIA MET; Hematocrit 35.4 % (40-54); Hemoglobin 12.0 g/dL (13.0-16.5); Immature Granulocytes Count 0.030 X10^3/uL (0.0-0.0); Mean Corp Hgb Conc 33.9 g/dL (32-36); Mean Corpuscular Volume 98.6 fL (80-94); Mean Platelet Vol. 10.0 fl (6.2-12.0); NRBC Flagged by Analyzer 0 % (0-5); POSITIVE MORPHOLOGY YES; Platelet Count 262 K/mm3 (150-450); RBC Distribution Width CV 18.4 % (11.6-14.6); RBC Distribution Width SD 66.3 fl (35.1-43.9); Red Blood Count 3.59 M/mm3 (4.6-6.2); White Blood Count 7.1 K/mm3 (4.4-11.0)
--- NOTE | 2024-11-14 04:49 | CPS ---
Patient wears ASV, settings used are EPAP 6, Min PS 3, Max PS 18 with 3L bled in HS
[2024-11-14 05:01] LABS: Anion Gap 12 (5-15); BUN 34 mg/dL (4-19); BUN/Creat Ratio 14.3 RATIO (10-20); Calcium,Total 8.3 mg/dL (7.6-11.0); Carbon Dioxide 21.3 mmol/L (21.0-32.0); Chloride 105 mmol/L (98-108); Estimated Creatinine Clearance 42.20 ml/min (50-250); Glucose 113 mg/dL (70-99); Potassium 4.3 mmol/L (3.3-5.1)
[2024-11-14] MEDS: Lactobacillis Acidophilus 1 CAP PO ×3 (05:33→21:05)
--- NOTE | 2024-11-14 07:37 | PCM.PN.INT ---
Assessment & Plan Assessment/Plan (1) Diarrhea: PLAN: Plan RECOMMENDATIONS: 1. Continue to wean Levophed as tolerated. 2. Start scheduled midodrine 3 times daily. 3. Continue to hold Farxiga and Ozempic. 4. GI infectious workup is pending. 5. Encourage incentive spirometer use and mobilize patient as tolerated. IMPRESSIONS: 1. Hypovolemic shock Likely secondary to recent diarrheal illness, which is resolving. The patient is being weaned from vasopressor support. Recommend starting scheduled midodrine. Continue to hold Farxiga and Ozempic. The patient was recently evaluated by gastroenterology on an outpatient basis in October 2024. If diarrhea were to recur, recommend inpatient consultation to GI. 2. Acute kidney injury Most likely prerenal in etiology in the setting #1. Creatinine is improving with volume expansion and stabilization and hemodynamics. Continue to monitor urine output. No current indication for renal replacement therapy. 3. History of metastatic renal cell carcinoma/heart failure with reduced ejection fraction/chronic anemia/COPD/obstructive sleep apnea Complicates care, management, recovery and prognosis. Continue home medications as indicated. Continue nocturnal PAP therapy. This note was generated with [employer] dictation software. It may contain incorrect words, spelling, and punctuation that were not noted in checking the note before signing. Subjective Subjective The patient was seen and examined at the bedside this morning. Events from the last 24 hours have been reviewed. The patient remains on low-dose Levophed to maintain hemodynamic stability. Nursing staff reported that the patient is now having formed bowel movements. The patient is currently documented to be overall net +3.4 L for the hospitalization. He has been tolerant of a diet. White blood cell count is normal. Hemoglobin and platelet count are stable. Creatinine has improved to 2.37. Objective Data Objective Data The patient's most recent lab work, culture data and imaging studies have all been personally reviewed. Vital Signs: Vital Signs Temp Pulse Resp BP Pulse Ox O2 Del Method O2 Flow Rate 97.2 F L 96 18 115/87 H 98 Nasal Cannula 3 11/14/24 01:00 11/14/24 04:00 11/14/24 01:00 11/14/24 01:00 11/14/24 01:00 11/14/24 04:00 11/14/24 04:00 Oxygen Flow Rate (L/min) 3 Oxygen Delivery Method Nasal Cannula Weight: 254 lb 10.142 oz Body Mass Index (BMI) 35.6 Intake & Output: Intake and Output for Last 24 Hours 11/12/24 11/13/24 11/14/24 23:59 23:59 23:59 Intake Total 3476.68 / 3478.08 38.35 / 38.35 Output Total 75 / 75 Balance 3401.68 / 3403.08 38.35 / 38.35 Lab / Micro Data Attestation: I reviewed the patient's lab results. 11/14/24 03:45 11/14/24 03:45 Labs: Laboratory Results - last 24 hr 11/13/24 05:08: Sodium 136, Potassium 5.6 H, Chloride 101, Carbon Dioxide 18.7 L, Anion Gap 17 H, BUN 37 H, Creatinine 3.49 H, Estim Creat Clear Calc 28.66 L, Est GFR (MDRD) Non-Af 19 L, BUN/Creatinine Ratio 10.5, Glucose 93, Calcium 8.2, Total Bilirubin 0.67, AST 49 H, ALT 42, Alkaline Phosphatase 46, Total Protein 6.4, Albumin 3.6, Globulin 2.8, Albumin/Globulin Ratio 1.3, Procalcitonin 0.34 H 11/13/24 05:35: Urine Color Yellow, Urine Clarity Sl. Cloudy, Urine pH 6.0, Ur Specific [place] 1.020, Urine Protein 100 H, Urine Glucose (UA) Normal, Urine Ketones Negative, Urine Occult Blood 10 H, Urine Nitrite Negative, Urine Bilirubin 1 H, Urine Urobilinogen Normal, Ur Leukocyte Esterase 25 H, Urine RBC 0-5 SEEN, Urine WBC 5-10 SEEN, Ur Squamous Epith Cells 10-25 SEEN, Urine Bacteria 1+, Hyaline Casts 5-10 SEEN, Urine Mucus 0 SEEN 11/13/24 11:12: POC Glucose 113 H 11/13/24 16:02: POC Glucose 110 H 11/13/24 21:00: POC Glucose 90 11/14/24 03:45: WBC 7.1, RBC 3.59 L, Hgb 12.0 L, Hct 35.4 L, MCV 98.6 H, MCH 33.4 H, MCHC 33.9, RDW Std Deviation 66.3 H, RDW Coeff of Lizzie 18.4 H, Plt Count 262, MPV 10.0, Immature Gran % (Auto) 0.400, Neut % (Auto) 66.6, Lymph % (Auto) 18.7 L, [place] % (Auto) 7.8, Eos % (Auto) 6.2 H, Baso % (Auto) 0.3, Absolute Neuts (auto) 4.7, Absolute Lymphs (auto) 1.32, Nucleated RBC % 0, Ovalocytes 1+, Sodium 138, Potassium 4.3, Chloride 105, Carbon Dioxide 21.3, Anion Gap 12, BUN 34 H, Creatinine 2.37 H, Estim Creat Clear Calc 42.20 L, Est GFR (MDRD) Non-Af 31 L, BUN/Creatinine Ratio 14.3, Glucose 113 H, Calcium 8.3 Micro: Microbiology 11/13/24 05:50 Stool Enteric Bacteriology - Final 11/13/24 05:50 Stool Clostridioides difficile (PCR) - Final 11/13/24 01:53 Mucosa - Nose SARS-CoV-2, Influenza & RSV (PCR) - Final Radiography Diagnostic Testing: Radiology Impression Chest X-Ray 11/13/24 12:22 IMPRESSION: A right-sided PICC line catheter has been placed with the tip in the midportion of the superior vena cava. Stable expansile lesion overlying the right 6th rib. Reading Location: [facility] Physical Exam Const alert, oriented x3 and no apparent distress General Appearance: cooperative HEENT normocephalic and head/scalp atraumatic Eyes PERRL, EOMs intact bilaterally and conjunctivae normal Neck supple General: trachea midline Chest inspection of chest normal Resp normal respiratory effort Auscultation: Negative for rales, rhonchi or wheezes Cardio regular rate and regular rhythm GI soft to palpation and non-tender Extremity no clubbing, cyanosis or edema Skin no rashes or lesions noted Neuro CN's II-XII intact bilaterally, moves all extremities and no focal motor deficits Psych cooperative and affect normal Charges/Coding Visit Charges Inpatient E&M: 79158 Subs Hosp L3
--- NOTE | 2024-11-14 17:11 | PCM.PN.HOSP ---
Subjective Subjective Doing well, pressors are off and he is currently on p.o. midodrine Objective Data Objective Data Vital Signs: Vital Signs Temp Pulse Resp BP Pulse Ox O2 Del Method O2 Flow Rate 97.0 F L 87 22 H 124/84 H 100 Nasal Cannula 3 11/14/24 14:00 11/14/24 14:00 11/14/24 14:00 11/14/24 14:00 11/14/24 14:00 11/14/24 14:00 11/14/24 14:00 Oxygen Flow Rate (L/min) 3 Oxygen Delivery Method Nasal Cannula Weight: 254 lb 10.142 oz Body Mass Index (BMI) 35.6 Intake & Output: Intake and Output for Last 24 Hours 11/13/24 11/14/24 11/15/24 03:59 03:59 03:59 Intake Total 1150 / 1150 2344.88 / 2350.48 34.77 / 34.77 Output Total 75 / 75 Balance 1150 / 1150 2269.88 / 2275.48 34.77 / 34.77 Lab / Micro Data 11/15/24 05:10 11/15/24 05:10 Labs: Laboratory Results - last 24 hr 11/13/24 05:35: Urine RBC 0-5 SEEN, Urine WBC 5-10 SEEN, Ur Squamous Epith Cells 10-25 SEEN, Urine Bacteria 1+, Hyaline Casts 5-10 SEEN, Urine Mucus 0 SEEN 11/13/24 21:00: POC Glucose 90 11/14/24 03:45: WBC 7.1, RBC 3.59 L, Hgb 12.0 L, Hct 35.4 L, MCV 98.6 H, MCH 33.4 H, MCHC 33.9, RDW Std Deviation 66.3 H, RDW Coeff of Lizzie 18.4 H, Plt Count 262, MPV 10.0, Immature Gran % (Auto) 0.400, Neut % (Auto) 66.6, Lymph % (Auto) 18.7 L, [place] % (Auto) 7.8, Eos % (Auto) 6.2 H, Baso % (Auto) 0.3, Absolute Neuts (auto) 4.7, Absolute Lymphs (auto) 1.32, Nucleated RBC % 0, Ovalocytes 1+, Sodium 138, Potassium 4.3, Chloride 105, Carbon Dioxide 21.3, Anion Gap 12, BUN 34 H, Creatinine 2.37 H, Estim Creat Clear Calc 42.20 L, Est GFR (MDRD) Non-Af 31 L, BUN/Creatinine Ratio 14.3, Glucose 113 H, Calcium 8.3 11/14/24 08:07: POC Glucose 82 11/14/24 11:24: POC Glucose 127 H 11/14/24 16:46: POC Glucose 107 H Micro: Microbiology 11/13/24 05:50 Stool Enteric Bacteriology - Final 11/13/24 05:50 Stool Clostridioides difficile (PCR) - Final 11/13/24 01:53 Mucosa - Nose SARS-CoV-2, Influenza & RSV (PCR) - Final Physical Exam Narrative General: Alert, Oriented x3, Cooperative, No apparent distress HEENT: Atraumatic, PERRLA, EOMI, Normocephalic Oral: Moist Mucosa Neck: Supple, No JVD Lungs: Diminished, Normal air movement, No rhonchi, No wheeze, No rales Cardiovascular: Regular rate, Regular Rhythm, Normal S1, Normal S2, No murmurs Abdomen: Soft, Non Tender, Non-Distended, No Hepato-splenomegaly Extremities: No edema, Capillary Refill Less than 3 Seconds Skin: No rashes, No breakdown Musculoskeletal: No Tenderness to Palpation of Joints or Extremities Neurological: No focal neurological deficits, moves all extremities Psych/Mental Status: Normal Affect, Appropriate Assessment & Plan Assessment/Plan (1) Syncope: PLAN: Plan 1. Syncope secondary to dehydration from severe diarrhea with hypovolemic shock with VIMAL ? This is likely a vasovagal episode ? He did receive a decent amount of fluids and blood pressure was unresponsive so he did temporarily receive Levophed and then was transitioned to oral midodrine since then shock has resolved ? Given his continued diarrhea that he has been having for several months will proceed with a bowel prep and plan for colonoscopy tomorrow ? Consult GI ? Continue with IV fluids, VIMAL is resolved 2. Chronic systolic CHF/essential HTN/chronic A-fib/HLD ? Will hold his blood pressure medications secondary to his hypotension requiring pressors ? Will monitor his blood pressure make adjustments as necessary ? Will hold his Eliquis ? Continue with Lipitor ? Echo on 09/25/2024 with an EF of 50% with mild concentric LVH 3. CKD 3 in the setting of a right nephrectomy for metastatic renal cancer and type 2 diabetes ? Renal function is back to baseline ? Will hold his home meds ? Sliding scale insulin ? Accu-Cheks ACHS ? Will monitor and make adjustments as necessary 4. Iron deficiency anemia ? Continue with his iron supplementation 5. Anxiety/depression ? Stable ? Continue with his Zoloft 6. GERD ? Stable ? Continue with PPI DVT: SCDs Charges/Coding Visit Charges Inpatient E&M: 06716 Subs Hosp L2
[2024-11-14] MEDS: 0.9% Saline Lock 10 ML Syringe IV (19:24)
[2024-11-14] MEDS: Polyethylene Glycol 3350 BOWEL PREP PO (19:50)
[2024-11-15] VITALS (23 sets, daily range): BP systolic 81–128; BP diastolic 55–98; PULSE 69–109; RESP 15–25; TEMP 36.1–37.1; O2SAT 93–100; BMI 35.5
[2024-11-15] MEDS: 0.9% Saline Lock 10 ML Syringe IV (05:11)
[2024-11-15 05:22] LABS: Hematocrit 39.3 % (40-54); Hemoglobin 13.1 g/dL (13.0-16.5); Immature Granulocytes Count 0.030 X10^3/uL (0.0-0.0); Mean Corp Hgb Conc 33.3 g/dL (32-36); Mean Corpuscular Volume 99.7 fL (80-94); Mean Platelet Vol. 10.1 fl (6.2-12.0); NRBC Flagged by Analyzer 0 % (0-5); POSITIVE MORPHOLOGY YES; Platelet Count 241 K/mm3 (150-450); RBC Distribution Width CV 18.7 % (11.6-14.6); RBC Distribution Width SD 68.6 fl (35.1-43.9); Red Blood Count 3.94 M/mm3 (4.6-6.2); White Blood Count 6.2 K/mm3 (4.4-11.0)
[2024-11-15 05:25] LABS: Differential Indicated SCAN CRITERIA MET
[2024-11-15 05:45] LABS: Anion Gap 10 (5-15); BUN 27 mg/dL (4-19); BUN/Creat Ratio 13.1 RATIO (10-20); Calcium,Total 9.0 mg/dL (7.6-11.0); Carbon Dioxide 22.1 mmol/L (21.0-32.0); Chloride 106 mmol/L (98-108); Estimated Creatinine Clearance 49.68 ml/min (50-250); Glucose 96 mg/dL (70-99); Potassium 5.0 mmol/L (3.3-5.1)
[2024-11-15 05:57] LABS: Anisocytosis 2+; Differential Comment SCANNED
[2024-11-15 05:58] LABS: Acanthocytes 1+; Crenated RBC 2+
--- NOTE | 2024-11-15 08:33 | PCM.PN.HOSP ---
Subjective Subjective Doing well today. Off of pressors for over 24 hours. Can transfer out of the unit Objective Data Objective Data Vital Signs: Vital Signs Temp Pulse Resp BP Pulse Ox O2 Del Method O2 Flow Rate 97.8 F 109 H 23 H 112/98 H 99 Nasal Cannula 3 11/15/24 05:00 11/15/24 07:00 11/15/24 07:00 11/15/24 07:00 11/15/24 07:46 11/15/24 07:46 11/15/24 07:46 Oxygen Flow Rate (L/min) 3 Oxygen Delivery Method Nasal Cannula Weight: 253 lb 12.033 oz Body Mass Index (BMI) 35.5 Intake & Output: Intake and Output for Last 24 Hours 11/14/24 11/15/24 11/16/24 03:59 03:59 03:59 Intake Total 2344.88 / 2350.48 34.77 / 34.77 0 / 0 Output Total 75 / 75 Balance 2269.88 / 2275.48 34.77 / 34.77 0 / 0 Lab / Micro Data 11/15/24 05:10 11/15/24 05:10 Labs: Laboratory Results - last 24 hr 11/14/24 11:24: POC Glucose 127 H 11/14/24 16:46: POC Glucose 107 H 11/14/24 21:03: POC Glucose 89 11/15/24 05:10: WBC 6.2, RBC 3.94 L, Hgb 13.1, Hct 39.3 L, MCV 99.7 H, MCH 33.2 H, MCHC 33.3, RDW Std Deviation 68.6 H, RDW Coeff of Lizzie 18.7 H, Plt Count 241, MPV 10.1, Immature Gran % (Auto) 0.500, Neut % (Auto) 68.7, Lymph % (Auto) 15.9 L, [place] % (Auto) 9.5, Eos % (Auto) 5.1 H, Baso % (Auto) 0.3, Absolute Neuts (auto) 4.3, Absolute Lymphs (auto) 0.99, Nucleated RBC % 0, Differential Comment SCANNED, Platelet Estimate ADEQUATE, Anisocytosis 2+, Ovalocytes 3+, Crenated Cell 2+, Acanthocytes (Spur) 1+, Sodium 138, Potassium 5.0, Chloride 106, Carbon Dioxide 22.1, Anion Gap 10, BUN 27 H, Creatinine 2.04 H, Estim Creat Clear Calc 49.68 L, Est GFR (MDRD) Non-Af 37 L, BUN/Creatinine Ratio 13.1, Glucose 96, Calcium 9.0 Micro: Microbiology 11/13/24 05:50 Stool Enteric Bacteriology - Final 11/13/24 05:50 Stool Clostridioides difficile (PCR) - Final 11/13/24 01:53 Mucosa - Nose SARS-CoV-2, Influenza & RSV (PCR) - Final Physical Exam Narrative General: Alert, Oriented x3, Cooperative, No apparent distress HEENT: Atraumatic, PERRLA, EOMI, Normocephalic Oral: Moist Mucosa Neck: Supple, No JVD Lungs: Diminished, Normal air movement, No rhonchi, No wheeze, No rales Cardiovascular: Regular rate, Regular Rhythm, Normal S1, Normal S2, No murmurs Abdomen: Soft, Non Tender, Non-Distended, No Hepato-splenomegaly Extremities: No edema, Capillary Refill Less than 3 Seconds Skin: No rashes, No breakdown Musculoskeletal: No Tenderness to Palpation of Joints or Extremities Neurological: No focal neurological deficits, moves all extremities Psych/Mental Status: Normal Affect, Appropriate Assessment & Plan Assessment/Plan (1) Syncope: PLAN: Plan 1. Syncope secondary to dehydration from severe diarrhea with hypovolemic shock with VIMAL ? This is likely a vasovagal episode ? He did receive a decent amount of fluids and blood pressure was unresponsive so he did temporarily receive Levophed and then was transitioned to oral midodrine since then shock has resolved ? Given his continued diarrhea that he has been having for several months pleated bowel prep, plan for colonoscopy today. Will transfer out of the ICU ? Consult GI ? VIMAL is resolved 2. Chronic systolic CHF/essential HTN/chronic A-fib/HLD ? Will hold his blood pressure medications secondary to his hypotension requiring pressors ? Will monitor his blood pressure make adjustments as necessary ? Will hold his Eliquis ? Continue with Lipitor ? Echo on 09/25/2024 with an EF of 50% with mild concentric LVH 3. CKD 3 in the setting of a right nephrectomy for metastatic renal cancer and type 2 diabetes ? Renal function is back to baseline ? Will hold his home meds ? Sliding scale insulin ? Accu-Cheks ACHS ? Will monitor and make adjustments as necessary 4. Iron deficiency anemia ? Continue with his iron supplementation 5. Anxiety/depression ? Stable ? Continue with his Zoloft 6. GERD ? Stable ? Continue with PPI DVT: SCDs Charges/Coding Visit Charges Inpatient E&M: 38629 Subs Hosp L2
--- NOTE | 2024-11-15 08:44 | PCM.PN.INT ---
Assessment & Plan Assessment/Plan (1) Diarrhea: PLAN: Plan RECOMMENDATIONS: 1. Continue to hold Farxiga and Ozempic. 2. GI consultation is pending with possible endoscopic evaluation. 3. Wean supplemental oxygen as tolerated. 4. Encourage incentive spirometer use and mobilize patient as tolerated. 5. The patient is medically stable for transfer out of the intensive care unit. Will sign off at this time. IMPRESSIONS: 1. Hypovolemic shock Resolved. Likely secondary to recent diarrheal illness, which is resolving. Continue to hold Farxiga and Ozempic. The patient was recently evaluated by gastroenterology on an outpatient basis in October 2024. If diarrhea were to recur, recommend inpatient consultation to GI. 2. Acute kidney injury Improving. Most likely prerenal in etiology in the setting #1. Creatinine is improving with volume expansion and stabilization and hemodynamics. Continue to monitor urine output. No current indication for renal replacement therapy. 3. History of metastatic renal cell carcinoma/heart failure with reduced ejection fraction/chronic anemia/COPD/obstructive sleep apnea Complicates care, management, recovery and prognosis. Continue home medications as indicated. Continue nocturnal PAP therapy. This note was generated with [employer] dictation software. It may contain incorrect words, spelling, and punctuation that were not noted in checking the note before signing. Subjective Subjective The patient was seen and examined at the bedside this morning. Events from the last 24 hours have been reviewed. The patient is currently afebrile, hemodynamically stable and maintaining appropriate oxygen saturations on 3 L/min via nasal cannula. The patient was weaned off of Levophed completely yesterday. White blood cell count is normal. Hemoglobin and platelet count are stable. Creatinine has improved to 2.04. Objective Data Objective Data The patient's most recent lab work, culture data and imaging studies have all been personally reviewed. Vital Signs: Vital Signs Temp Pulse Resp BP Pulse Ox O2 Del Method O2 Flow Rate 97.8 F 109 H 23 H 112/98 H 99 Nasal Cannula 3 11/15/24 05:00 11/15/24 07:00 11/15/24 07:00 11/15/24 07:00 11/15/24 07:46 11/15/24 07:46 11/15/24 07:46 Oxygen Flow Rate (L/min) 3 Oxygen Delivery Method Nasal Cannula Weight: 253 lb 12.033 oz Body Mass Index (BMI) 35.5 Intake & Output: Intake and Output for Last 24 Hours 11/13/24 11/14/24 11/15/24 23:59 23:59 23:59 Intake Total 3476.68 / 3478.08 52.97 / 52.97 0 / 0 Output Total 75 / 75 Balance 3401.68 / 3403.08 52.97 / 52.97 0 / 0 Lab / Micro Data Attestation: I reviewed the patient's lab results. 11/15/24 05:10 11/15/24 05:10 Labs: Laboratory Results - last 24 hr 11/14/24 11:24: POC Glucose 127 H 11/14/24 16:46: POC Glucose 107 H 11/14/24 21:03: POC Glucose 89 11/15/24 05:10: WBC 6.2, RBC 3.94 L, Hgb 13.1, Hct 39.3 L, MCV 99.7 H, MCH 33.2 H, MCHC 33.3, RDW Std Deviation 68.6 H, RDW Coeff of Lizzie 18.7 H, Plt Count 241, MPV 10.1, Immature Gran % (Auto) 0.500, Neut % (Auto) 68.7, Lymph % (Auto) 15.9 L, [place] % (Auto) 9.5, Eos % (Auto) 5.1 H, Baso % (Auto) 0.3, Absolute Neuts (auto) 4.3, Absolute Lymphs (auto) 0.99, Nucleated RBC % 0, Differential Comment SCANNED, Platelet Estimate ADEQUATE, Anisocytosis 2+, Ovalocytes 3+, Crenated Cell 2+, Acanthocytes (Spur) 1+, Sodium 138, Potassium 5.0, Chloride 106, Carbon Dioxide 22.1, Anion Gap 10, BUN 27 H, Creatinine 2.04 H, Estim Creat Clear Calc 49.68 L, Est GFR (MDRD) Non-Af 37 L, BUN/Creatinine Ratio 13.1, Glucose 96, Calcium 9.0 Micro: Microbiology 11/13/24 05:50 Stool Enteric Bacteriology - Final 11/13/24 05:50 Stool Clostridioides difficile (PCR) - Final 11/13/24 01:53 Mucosa - Nose SARS-CoV-2, Influenza & RSV (PCR) - Final Radiography Diagnostic Testing: Radiology Impression Chest X-Ray 11/13/24 12:22 IMPRESSION: A right-sided PICC line catheter has been placed with the tip in the midportion of the superior vena cava. Stable expansile lesion overlying the right 6th rib. Reading Location: [id number] Physical Exam Const alert, oriented x3 and no apparent distress General Appearance: cooperative HEENT normocephalic and head/scalp atraumatic Eyes PERRL, EOMs intact bilaterally and conjunctivae normal Neck supple General: trachea midline Chest inspection of chest normal Resp normal respiratory effort Auscultation: Negative for rales, rhonchi or wheezes Cardio regular rate and regular rhythm GI soft to palpation and non-tender Extremity no clubbing, cyanosis or edema Skin no rashes or lesions noted Neuro CN's II-XII intact bilaterally, moves all extremities and no focal motor deficits Psych cooperative and affect normal Charges/Coding Visit Charges Inpatient E&M: 68376 Subs Hosp L2
--- NOTE | 2024-11-15 08:50 | NURSING ---
Pt's stool is mostly clear w/ flecks and mucous in appearance at this time post bowel prep.
--- NOTE | 2024-11-15 08:54 | CON.PCM.GI_ITS ---
HPI Consult Data Date of Consult: 11/15/24 HPI Narrative Reason for Consultation: diarrhea HPI Narrative: Admission - 10/21 presented with abdominal pain, nausea, and malaise x1 week Elastase 05/20/2024 low normal 218 10/19/24 06:40 Stool Stool Occult Blood (STEVENSON) - Final Occult Blood Positive 10/18/24 22:00 Stool Clostridioides difficile - Negative 10/18/24 22:00 Stool Enteric Bacteriology - Negative 10/19/24 06:40 Stool Stool Lactoferrin - Final - Positive GI OP Visit 10/31/2024 A 59-year-old male with a history of metastatic renal cell carcinoma presenting with chronic diarrhea. The diarrhea is characterized by frequent watery stools occurring both during the day and night, with 10 pound weight loss since the initiation of semaglutide. While the symptoms have reduced after stopping a potassium supplement, they have persisted to some extent. A previous stool test was positive for lactoferrin, suggesting colonic inflammation. Blood pressure management is complicated by current hypotensive episodes, likely influenced by his medications and recent gastrointestinal symptoms. Current admission 11/13/24 05:50 Stool Enteric Bacteriology - Final 11/13/24 05:50 Stool Clostridioides difficile (PCR) - Final - reports months of diarrhea, predating initiation of Ozempic (started 3 months ago) - stool frequency increased 6-7x a day, little urgency - no recurrent incontinence - Fecal Calprotectin 11/01/2024 elevated 233 - denies pain/bleeding - denies N/V - decrease in appetite -> Ozempic - taking Pepto, stopped Imodium - denies family h/o colon CA - no longer on pressors (93/67, 90) - 3L NC - 98% - Last dose of Ozempic was 11/06/2024 - denies any Eliquis in past few days [facility] [place] Medical History Diabetes mellitus, type 2 Obesity (BMI 30.0-34.9) HLD (hyperlipidemia) Anemia Atrial fibrillation CKD (chronic kidney disease), stage III Systolic CHF Tobacco use NIMCO on CPAP Metastatic renal cell carcinoma to bone Renal cell cancer Hyperlipidemia GERD (gastroesophageal reflux disease) COPD (chronic obstructive pulmonary disease) Hypertension Home Medications ?Medication ?Instructions ?Recorded ?Last Taken ?Type albuterol sulfate 2.5 mg/3 mL 2.5 mg (3 mL) inhalation PRN PRN 06/29/22 Unknown Rx (0.083 %) solution for nebulization Shortness Of Breat h #75 mL ferrous sulfate 325 mg (65 mg 325 mg PO BID supplement #30 tabs 06/29/22 Unknown Rx iron) tablet fluticasone fur. 100 mcg-umeclid 1 inh inhalation MONICA Y breathing 06/29/22 Unknown Rx 62.5 mcg-vilant 25 mcg #28 ea inhalat.powder (Trelegy Ellipta) pantoprazole 40 mg tablet,delayed 40 mg PO DAILY gerd #30 tabs 06/29/22 Unknown Rx release rosuvastatin 40 mg tablet 40 mg PO DAILY cholesterol # 30 tabs 06/29/22 Unknown Rx losartan 50 mg tablet 50 mg PO DAILY blood pressur e #90 09/29/22 Unknown Rx tabs spironolactone 25 mg tablet 25 mg PO DAILY diuretic #9 0 tabs 09/29/22 Unknown Rx carvedilol 12.5 mg tablet 12.5 mg PO BID blood pressur e #180 06/04/24 Unknown Rx TABLETS semaglutide 0.25 mg or 0.5 mg (2 2 mg subcut QWEEK clay betes 06/20/24 Unknown History mg/3 mL) subcutaneous pen injector (Ozempic) cabozantinib 20 mg tablet 20 mg PO QDAY cancer 5 Unknown History apixaban 5 mg tablet (Eliquis) 5 mg PO BID blood thinn er #60 tabs 08/14/24 Unknown Rx Handicap Placard #1 ea 10/02/24 Unknown Rx bumetanide 2 mg tablet 2 mg PO ONCE water pill 09/06 10/30 Unknown History calcitriol 0.25 mcg capsule 0.25 mcg PO QDAY supplemen t 10/02/24 Unknown History dapagliflozin propanediol 5 mg 5 mg PO QDAY CKD Unknown History tablet (Farxiga) tizanidine 4 mg capsule 4 mg PO Q8H PRN muscle spast icity 10/02/24 Unknown History loperamide 2 mg capsule 2 mg PO 4X/DAY PRN PRN diarr hea 10/19/24 Unknown History mirtazapine 15 mg tablet 15 mg PO QHS antidepressant 10/19/24 Unknown History Allergy/AdvReac Type Severity Reaction Status Date / Time lisinopril Allergy Severe Angioedema Verified 11/13/24 01:34 guaifenesin (From Mucinex) Allergy Intermediate Bleeding Verified 11/13/24 01:34 aspirin (ASA) Allergy Other Verified 11/13/24 01:34 mushroom (mushrooms) Allergy Hives Verified 11/13/24 01:34 Penicillins Allergy PT UNSURE Verified 11/13/24 01:34 OF REACTION shellfish derived Allergy Hives Verified 11/13/24 01:34 Family History Father Cancer Mother Heart disease Hypertension Myocardial infarction Surgical History History of cardiac cath (~07/2021) History of cardioversion (~09/2021) History of nephrectomy, right Social History household members: spouse and family Smoking Status: Current every day smoker tobacco type: cigarettes Electronic Cigarette Use: with nicotine alcohol intake: current alcohol intake frequency: holidays/special occasions only substance use type: does not use ROS Gastrointestinal Gastrointestinal: Reports as per HPI Musculoskeletal Musculoskeletal: Denies abnormal gait, joint pain, joint stiffness, joint swelling or muscle weakness Integumentary Integumentary: Denies change in pigmentation, jaundice or unusual bruising Neurologic Neurologic: Denies confusion, memory loss, paresthesias or tremor(s) Psychiatric Psychiatric: Denies abnormal sleep pattern, change in appetite, confusion or memory loss Physical Exam Eyes conjunctivae normal Resp Effort and Inspection: able to speak in complete sentences and symmetric chest movement Auscultation: clear to auscultation bilaterally GI GI Narrative: ABD soft, non-tender, BS+ x4 Lab / Micro Data Attestation: I reviewed the patient's lab results. 11/15/24 05:10 11/15/24 05:10 Labs: Laboratory Results - last 24 hr 11/14/24 11:24: POC Glucose 127 H 11/14/24 16:46: POC Glucose 107 H 11/14/24 21:03: POC Glucose 89 11/15/24 05:10: WBC 6.2, RBC 3.94 L, Hgb 13.1, Hct 39.3 L, MCV 99.7 H, MCH 33.2 H, MCHC 33.3, RDW Std Deviation 68.6 H, RDW Coeff of Lizzie 18.7 H, Plt Count 241, MPV 10.1, Immature Gran % (Auto) 0.500, Neut % (Auto) 68.7, Lymph % (Auto) 15.9 L, Garden % (Auto) 9.5, Eos % (Auto) 5.1 H, Baso % (Auto) 0.3, Absolute Neuts (auto) 4.3, Absolute Lymphs (auto) 0.99, Nucleated RBC % 0, Differential Comment SCANNED, Platelet Estimate ADEQUATE, Anisocytosis 2+, Ovalocytes 3+, Crenated Cell 2+, Acanthocytes (Spur) 1+, Sodium 138, Potassium 5.0, Chloride 106, Carbon Dioxide 22.1, Anion Gap 10, BUN 27 H, Creatinine 2.04 H, Estim Creat Clear Calc 49.68 L, Est GFR (MDRD) Non-Af 37 L, BUN/Creatinine Ratio 13.1, Glucose 96, Calcium 9.0 Assessment & Plan Assessment/Plan (1) Diarrhea: PLAN: Plan 59y/o male with metastatic RCC (s/p right nephrectomy 2021, multipfocal bone mets, on cabozantinib 20mg daily since 2021), A. Fib, HTN, HLD, CHF admitted with dehydration in the setting of chronic diarrhea. Diarrhea has been ongoing for several months (4+ stools daily, including nocturnal episodes, with urgency). Prior stool studies occult positive, lactoferrin positive, C. Diff and enteric pathogens negative. Fecal calprotectin elevated (233 on 11/01). Last colonoscopy 5+ years ago with a history of colon polyps. On Ozempic x3 months (symptoms preceded). On cabozantinib since 2021 (TKI, well established cause of chronic diarrhea and mucosal inflammation) with onset within weeks to years after initiation. Although he reports that diarrhea was present prior to initiation of Ozempic, his symptoms have worsened in severity since starting therapy and have now progressed to the point of requiring admission x2. Given the potential for GLP-1 receptor agonist to exacerbate GI side effects, discontinuation of Ozempic is recommended at this time. Differential: - Cabozantinib induced diarrhea/enterocolitis (very likely contributor, dose dependent) - Microscopic colitis (common in chronic watery diarrhea, drug associated) - IBD (possible, although unlikely given atypical onset) - Other: BAD, EPI, Malignancy, CMV colitis Plan: - Colonoscopy with random biopsies (Mirlax bowel prep) - Consider Lomotil or Cholestyramine if colonoscopy unremarkable - IVF/electrolytes for hydration support - Hold Ozempic
[2024-11-15] MEDS: Lactated Ringers 1,000 ML 15 ML IV (10:49)
--- NOTE | 2024-11-15 11:04 | PCM.PRE.AN2 ---
ASA Classification* ASA Classification ASA Classification: 3 and E Assessment & Plan Anesthesia* Anesthesia Assessment Anesthesia Assessment: Discussed sedation and/or anesthesia options, risks, benefits, and alternatives with patient/parents/legal guardian/POA. Questions invited. The patient/parents/legal guardian/POA seems to understand and agrees to proceed with anesthesia plan. Reviewed the physical assessment, medical history, allergy history and patient home medications list prior to surgery/procedure/anesthetic and documented any changes. Performed airway and anesthesia risk assessments. Anesthesia Type Anesthesia Type: MAC History Source History Obtained from:: Patient and Chart Anesthesia Focused Assessment* Temperature: 96.9 F Pulse Rate: 83 Blood Pressure: 93/67 Respiratory Rate: 21 Pulse Ox: 97 Oxygen Delivery Method: Room Air Oxygen Flow Rate (L/min): 3 Airway Assessment Mouth opens: >3 cm Mallampati Score: II Teeth Condition: Chipped/Broken and Missing Neck Range of motion (ROM): Full ROM Labs Anesthesia Preop lab: CBC WBC 6.2 K/mm3 (4.4-11.0) 11/15/24 05:10 11/15/24 RBC 3.94 M/mm3 (4.6-6.2) L 11/15/24 05:10 11/15/24 Hgb 13.1 g/dL (13.0-16.5) 11/15/24 05:10 11/15/24 Hct 39.3 % (40-54) L 11/15/24 05:10 11/15/24 Plt Count 241 K/mm3 (150-450) 11/15/24 05:10 11/15/24 CHEMISTRY Potassium 5.0 mmol/L (3.3-5.1) 11/15/24 05:10 11/15/24 Sodium 138 mmol/L (133-145) 11/15/24 05:10 11/15/24 Magnesium 1.7 mg/dL (1.5-2.2) 11/13/24 01:35 11/13/24 Phosphorus 3.4 mg/dL (2.7-4.5) 11/13/24 01:35 11/13/24 BUN 27 mg/dL (4-19) H 11/15/24 05:10 11/15/24 Creatinine 2.04 mg/dL (0.70-1.20) H 11/15/24 05:10 11/15/24 Glucose 96 mg/dL (70-99) 11/15/24 05:10 11/15/24 POC Glucose 89 mg/dL (74-106) 11/14/24 21:03 11/14/24 TSH 2.330 uIU/mL (0.300-4.200) 10/19/24 05:47 10/19/24 COAG PT 19.6 SECONDS (11.7-14.9) H 11/13/24 01:35 11/13/24 Pre-Assessment Diagnosis/Proposed Procedure Planned Operative Procedure(s): Colonoscopy Anesthesia History Anesthesia History - loan operations manager: Anesthesia History - loan operations manager Hx Hospitalization Any Problems With Anesthesia Cholinesterase deficiency You/Your Family Experience fever (hyperthermia) with Relationship Recent Exposure to Contagious Disease Does patient have nerve stimulator Patient instructed to have device shut off --Does patient have Pacemaker or ICD? When Was Last Pacemaker Check QUESTION #4 FULL TEXT: You/Your Family Experience fever (hyperthermia) with Anesthesia Last Oral Intake Last Oral intake: Last Oral Intake NPO since Meds taken in AM with sips of water? Meds patient instructed to take am of surgery PONV PONV - loan operations manager: PONV - loan operations manager Female HX of Motion Sickness HX of N/V After Surgery Non-Smoker Duration of Surgery greater than 60 minutes Number of Risk Factors PONV Score Height & Weight Height & Weight: Anesthesia: Height & Weight Height 5 ft 11 in 11/13/24 09:53 Weight: 115.1 kg 11/15/24 05:25 Body Mass Index (BMI) 35.5 11/15/24 05:25 Respiratory Assessment Respiratory Assessment - loan operations manager: Respiratory Tract Infection Hx - loan operations manager Hx Respiratory Tract Infection STOP Sleep Apnea STOP Sleep Apnea - loan operations manager: STOP Sleep Apnea - loan operations manager Hx Hypertension Yes 11/13/24 15:57 Hx Sleep Apnea Yes 11/13/24 05:03 CPAP Yes 11/13/24 05:03 BIPAP No 11/13/24 05:03 Do you snore loudly (louder than talking or can be heard Do you often feel tired/ fatigued/ sleepy during daytime? Has anyone observed you stop breathing during sleep? STOP Results Positive 11/13/24 05:03 QUESTION #5 FULL TEXT : Do you snore loudly (louder than talking or can be heard through closed doors)? Tobacco Use History Tobacco Use History - loan operations manager: Tobacco Use History - loan operations manager Tobacco Use Smoking Status Current every day smoker 11/13/24 05:03 Hx Tobacco Use No 11/13/24 05:03 Years Smoking Packs Smoked per Day Smoking Cessation Date was within the last 15 years Hx Smoking Cessation Date Hx Smoking Cessation Yes 11/13/24 05:03 Counseling Hematologic Medial History Hematologic Hx - loan operations manager: Hematologic Medical Hx - chief wellness officer Hx of Blood Transfusion No 11/13/24 05:03 Hx of Transfusion in last 3 No 11/13/24 05:03 Months Date of Last Transfusion (if within last 3 months) Ever experience any problems No 11/13/24 05:03 with transfusion(s)? Specify any problems Hx of Preganancy in last 3 N/A 11/13/24 05:03 Months Nurse Filling Out Transfusion [email or web address] 11/13/24 05:03 & Questions: Date: 11/13/24 11/13/24 05:03 Time: 05:06 11/13/24 05:03 Patient unable to answer at this time (ie. confused, unrespo /Reproduction History /Reproductive History - loan operations manager: /Reproductive Hx- loan operations manager Hx Now Gestational Age (in weeks): EDC: Hx Hx Para Hx Section SAB Active Medications Active Medications: Current Medications Generic Name Dose Route Start Last Admin Trade Name Freq PRN Reason Stop Dose Admin Acetaminophen 650 mg 11/13/24 04:50 Acetaminophen 325 Mg Tablet PO Q4H PRN PRN Fever, pain 1-10 Al Hydroxide/Mg Hydroxide 30 ml 11/13/24 04:50 Mag Hydrox/Al Hydrox/Simeth 30 Ml Udc PO Q6H PRN PRN Gastric Burning Albuterol Sulfate 2.5 mg 11/13/24 04:50 11/13/24 19:45 Albuterol 2.5 Mg/3 Ml Vial.Neb. INHALATION 2.5 mg Q2H PRN PRN Administration Dyspnea, wheezing Atorvastatin Calcium 80 mg 11/13/24 22:00 11/14/24 21:05 Atorvastatin Calcium 80 Mg Tablet PO 80 mg QHS OCTAVIANO Administration Calamine/Phenol 1 applic 11/13/24 16:11 Menthol/Lanolin/Calamine/Znox 113 Gm Tube TOPICAL 4X/DAY PRN PRN RASH/TOPICAL IRRITATION Protocol Calcitriol 0.25 mcg 11/13/24 10:00 11/15/24 10:30 Calcitriol 0.25 Mcg Capsule PO Not Given DAILY OCTAVIANO Ferrous Sulfate 325 mg 11/13/24 12:00 11/15/24 10:30 Ferrous Sulfate 325 Mg Tablet PO Not Given 1200,1700 OCTAVIANO Glucagon 1 mg 11/13/24 04:50 Glucagon 1 Mg/Ml Syringe IM X1 PRN HYPOGLYCEMIA Protocol Dextrose 250 mls @ 0 mls/hr 11/13/24 04:50 Dextrose 10%-Water IV .Q0M PRN HYPOGLYCEMIA Protocol As Directed Sodium Chloride 250 mls @ 15 mls/hr 11/13/24 05:06 IV .[id number] PRN Saline Flush Sodium Chloride 250 mls @ 15 mls/hr 11/13/24 05:06 IV .[id number] PRN Additional IVPB Infusion Norepinephrine Bitartrate 8 mg 250 mls @ 9.375 mls/hr 11/14/24 02:35 11/15/24 05:11 / Sodium Chloride CONT INF Not Given .[id number] OCTAVIANO Protocol 5 MCG/MIN Sodium Chloride 250 mls @ 15 mls/hr 11/14/24 04:30 IV .[id number] PRN Saline Flush Sodium Chloride 250 mls @ 15 mls/hr 11/14/24 04:30 IV .[id number] PRN Additional IVPB Infusion Lactated Ringer's 1,000 mls @ 15 mls/hr 11/15/24 11:00 11/15/24 10:49 IV 15 mls/hr .Q48H OCTAVIANO Administration Insulin Human Lispro 0 unit 11/13/24 07:00 11/15/24 10:30 Insulin Lispro 100 Unit/Ml Insuln.Pen SC Not Given ACHS OCTAVIANO Protocol Loperamide HCl 2 mg 11/13/24 04:50 11/13/24 12:22 Loperamide 2 Mg Capsule PO 2 mg 4X/DAY PRN PRN Administration diarrhea Melatonin 3 mg 11/13/24 04:50 Melatonin 3 Mg Tablet PO QHS PRN PRN INSOMNIA Midodrine 10 mg 11/14/24 12:00 11/15/24 10:29 Midodrine Hcl 5 Mg Tablet PO Not Given TIDCM OCTAVIANO Mirtazapine 15 mg 11/13/24 22:00 11/14/24 21:05 Mirtazapine 15 Mg Tablet PO 15 mg QHS OCTAVIANO Administration Ondansetron HCl 4 mg 11/13/24 04:50 11/14/24 19:24 Ondansetron 4 Mg/2 Ml Vial IV 4 mg Q8H PRN PRN Administration NAUSEA/VOMITING Pantoprazole Sodium 40 mg 11/13/24 10:00 11/15/24 10:29 Pantoprazole Sodium 40 Mg Tablet PO Not Given DAILY OCTAVIANO Sodium Chloride 10 - 40 ml 11/13/24 05:06 11/15/24 05:11 0.9% Saline Lock 10 Ml Syringe IV 20 ml UD PRN Administration SALINE FLUSH Sodium Chloride 10 - 40 ml 11/14/24 04:30 0.9% Saline Lock 10 Ml Syringe IV UD PRN SALINE FLUSH PFSH Medical History Diabetes mellitus, type 2 Obesity (BMI 30.0-34.9) HLD (hyperlipidemia) Anemia Atrial fibrillation CKD (chronic kidney disease), stage III Systolic CHF Tobacco use NIMCO on CPAP Metastatic renal cell carcinoma to bone Renal cell cancer Hyperlipidemia GERD (gastroesophageal reflux disease) COPD (chronic obstructive pulmonary disease) Hypertension Home Medications ?Medication ?Instructions ?Recorded ?Last Taken ?Type albuterol sulfate 2.5 mg/3 mL 2.5 mg (3 mL) inhalation PRN PRN 06/29/22 Unknown Rx (0.083 %) solution for nebulization Shortness Of Breath #75 mL ferrous sulfate 325 mg (65 mg 325 mg PO BID supplement #30 tabs 06/29/22 Unknown Rx iron) tablet fluticasone fur. 100 mcg-umeclid 1 inh inhalation DAILY breathing 06/29/22 Unknown Rx 62.5 mcg-vilant 25 mcg #28 ea inhalat.powder (Trelegy Ellipta) pantoprazole 40 mg tablet,delayed 40 mg PO DAILY gerd #30 tabs 06/29/22 Unknown Rx release rosuvastatin 40 mg tablet 40 mg PO DAILY cholesterol #30 tabs 06/29/22 Unknown Rx losartan 50 mg tablet 50 mg PO DAILY blood pressure #90 09/29/22 Unknown Rx tabs spironolactone 25 mg tablet 25 mg PO DAILY diuretic #90 tabs 09/29/22 Unknown Rx carvedilol 12.5 mg tablet 12.5 mg PO BID blood pressure #180 06/04/24 Unknown Rx TABLETS semaglutide 0.25 mg or 0.5 mg (2 2 mg subcut QWEEK diabetes 06/20/24 Unknown History mg/3 mL) subcutaneous pen injector (Ozempic) cabozantinib 20 mg tablet 20 mg PO QDAY cancer 08/09/24 Unknown History apixaban 5 mg tablet (Eliquis) 5 mg PO BID blood thinner #60 tabs 08/14/24 Unknown Rx Handicap Placard #1 ea 10/02/24 Unknown Rx bumetanide 2 mg tablet 2 mg PO ONCE water pill 10/02/24 Unknown History calcitriol 0.25 mcg capsule 0.25 mcg PO QDAY supplement 10/02/24 Unknown History dapagliflozin propanediol 5 mg 5 mg PO QDAY CKD 10/02/24 Unknown History tablet (Farxiga) tizanidine 4 mg capsule 4 mg PO Q8H PRN muscle spasticity 10/02/24 Unknown History loperamide 2 mg capsule 2 mg PO 4X/DAY PRN PRN diarrhea 10/19/24 Unknown History mirtazapine 15 mg tablet 15 mg PO QHS antidepressant 10/19/24 Unknown History Allergy/AdvReac Type Severity Reaction Status Date / Time lisinopril Allergy Severe Angioedema Verified 11/15/24 10:44 guaifenesin (From Mucinex) Allergy Intermediate Bleeding Verified 11/15/24 10:44 aspirin (ASA) Allergy Other Verified 11/15/24 10:44 mushroom (mushrooms) Allergy Hives Verified 11/15/24 10:44 Penicillins Allergy PT UNSURE Verified 11/15/24 10:44 OF REACTION shellfish derived Allergy Hives Verified 11/15/24 10:44 Family History Father Cancer Mother Heart disease Hypertension Myocardial infarction Surgical History History of cardiac cath (~07/2021) History of cardioversion (~09/2021) History of nephrectomy, right Social History household members: spouse and family Smoking Status: Current every day smoker tobacco type: cigarettes Electronic Cigarette Use: with nicotine alcohol intake: current alcohol intake frequency: holidays/special occasions only substance use type: does not use Review of Systems (Anesthesia) ROS Narrative System reviewed and no additional complaints, except as documented.
--- NOTE | 2024-11-15 11:30 | COLBX_PTH ---
PATIENT: YEFRI YANEZ LOC: [facility] U#:[id number] AGE/SX: 59/M ROOM: [facility]320 RE11/13/[address]: Dr. Marquise Padilla MD : 1965 BED: 1 DIS: 11/18/2024 SPEC #: [id number] RECD: 11/15/24 14:44 STATUS: АННА HERNANDEZ #: [id number] JASMIN: 11/15/24 11:[address]: Sachin Lombardo DEPT: SURGICAL PATHOLOGY RECD BY: Cisco Lynn ENTERED: 11/15/24 15:29 SP TYPE: COLON BX OTHR DR: MD Dr. Bari Lambert MD Dr. Nicholas F Kotsonis, MD Dr. Prakash Chand, MD Heather Evans SALES COACH-C Kassy Saha, SALES COACH-C MARLEN Benoit Tissues: A - Gastric mucous membrane B - Duodenum, NOS C - COLON BIOPSY Procedures: Immunohistochemical Stains Surgery Specimen Level IV HEADER OPERATION: Colonoscopy with biopsies, EGD with biopsies PRE-OP DIAGNOSIS: Diarrhea TISSUE SUBMITTED: A- Gastric body biopsy, B- Duodenum biopsy, C- Random colon biopsy MICROSCOPIC DIAGNOSIS A. Gastric body, biopsy: - Oxyntic mucosa with active chronic gastritis. - IHC negative for H. pylori organisms. B. Duodenum, biopsy: - Kimberly gland hyperplasia. - Negative for increased intraepithelial lymphocytes. C. Colon, random, biopsy: - Superficial hyperplastic crypt change. - The histologic features of microscopic colitis are not demonstrated. MICROSCOPIC DESCRIPTION Slides are reviewed. ?All matched controls reacted appropriately. These tests were developed and their performance characteristics determined by [facility]. They may not have been cleared or approved by the U.S. Food and Drug Administration. The FDA has determined that such clearance or approval is not necessary.? The above immunohistochemical?markers and/or special stains have been reviewed by the Pathologist. GROSS DESCRIPTION A. Received in fixative is one container labeled with the patient's name and designated Gastric body biopsy. The specimen consists of two irregular fragments of light short soft tissue, each measuring 0.3 cm. The specimen is totally submitted in one cassette. B. Received in fixative is one container labeled with the patient's name and designated Duodenum biopsy. The specimen consists of four irregular fragments of light short soft tissue that measure 0.1 to 0.3 cm. The specimen is totally submitted in one cassette. C. Received in fixative is one container labeled with the patient's name and designated Random colon biopsy. The specimen consists of multiple irregular fragments of light short soft tissue that in aggregate measure 1.9 x 0.8 x 0.2 cm. The specimen is totally submitted in one cassette. MT 11/15/2024 CPT:[id number]
--- NOTE | 2024-11-15 12:18 | PCM.POST.ANE ---
Anesthesia: Postop Eval I Current Vital Signs Temperature: 97 F Pulse Rate: 81 Blood Pressure: 81/64 Respiratory Rate: 18 Pulse Ox: 93 Oxygen Delivery Method: Nasal Cannula Oxygen Flow Rate (L/min): 3 Assessment Airway patent: Yes Spontaneous unlabored respirations: Yes Mental status: Asleep nausea: No Vomiting: No Anesthesia Complication: No Fluid Hydration Crystalloid volume administer (ml): 400 Total IV fluid infused: 400 Progress Note Anesthesia document: Postop Eval 1 completed: Yes
--- NOTE | 2024-11-15 12:19 | OP.PROVAT_ITS ---
11/15/2024 Jose Ramon Turner [address] [place] [address] Re : Upper GI endoscopy procedure for Deven Vega Dear Dr. Turner This procedure was performed on Friday, November 15, 2024. My impressions and recommendations are as follows: Impressions : - Small (< 5 mm) esophageal varices. - Portal hypertensive gastropathy. - Acute gastritis. Biopsied. - No gross lesions in the entire examined duodenum. Recommendations : - Discharge patient to home. - Resume previous diet. - Continue present medications. - Await pathology results. My findings are described in the full procedure note, which is enclosed. If I can be of further assistance, please feel free to contact me at . Sincerely, Sachin Lombardo, 11/15/2024 12:18:21 PM This report has been signed electronically.
--- NOTE | 2024-11-15 12:19 | OP.EGD_ITS ---
Patient Name: Deven Vega Procedure Date: 11/15/2024 11:41 AM Date of : 1965 Age: 59 Procedure: Upper GI endoscopy Indications: Epigastric abdominal pain, Abdominal pain in the left upper quadrant Providers: Sachin Lombardo DO Medicines: Monitored Anesthesia Care Patient Profile: This is a 59 year old male. Refer to note in patient chart for documentation of history and physical. Patient has symptoms of acute abdominal cramping, chronic epigastric abdominal pain and acute dyspepsia. Complications: No immediate complications. Procedure: Pre-Anesthesia Assessment: - Prior to the procedure, a History and Physical was performed, and patient medications and allergies were reviewed. The patient is competent. The risks and benefits of the procedure and the sedation options and risks were discussed with the patient. All questions were answered and informed consent was obtained. Patient identification and proposed procedure were verified by the physician in the pre-procedure area. Mental Status Examination: alert and oriented. Airway Examination: normal oropharyngeal airway and neck mobility. Respiratory Examination: clear to auscultation. CV Examination: normal. Prophylactic Antibiotics: The patient does not require prophylactic antibiotics. Prior Anticoagulants: The patient has taken no anticoagulant or antiplatelet agents except for NSAID medication. ASA Grade Assessment: II - A patient with mild systemic disease. After reviewing the risks and benefits, the patient was deemed in satisfactory condition to undergo the procedure. The anesthesia plan was to use monitored anesthesia care (MAC). Immediately prior to administration of medications, the patient was re-assessed for adequacy to receive sedatives. The heart rate, respiratory rate, oxygen saturations, blood pressure, adequacy of pulmonary ventilation, and response to care were monitored throughout the procedure. The physical status of the patient was re-assessed after the procedure. After obtaining informed consent, the endoscope was passed under direct vision. Throughout the procedure, the patient's blood pressure, pulse, and oxygen saturations were monitored continuously. The colonoscope was introduced through the mouth, and advanced to the fourth part of the duodenum. Small bowel enteroscopy was deemed necessary. The upper GI endoscopy was accomplished without difficulty. The patient tolerated the procedure well. Scope In: 11:51:12 AM Scope Out: 11:55:18 AM Total Procedure Duration Time 0 hours 4 minutes 6 seconds Findings: Small (< 5 mm) varices were found in the lower third of the esophagus. Mild portal hypertensive gastropathy was found in the entire examined stomach. Localized moderate inflammation characterized by congestion (edema) and erythema was found in the gastric body. Biopsies were taken with a cold forceps for histology. Biopsies were taken with a cold forceps for Helicobacter pylori testing. Verification of patient identification for the specimen was done. Estimated blood loss was minimal. No gross lesions were noted in the entire examined duodenum. Biopsies were taken with a cold forceps for histology. Verification of patient identification for the specimen was done. Estimated blood loss was minimal. Impression: - Small (< 5 mm) esophageal varices. - Portal hypertensive gastropathy. - Acute gastritis. Biopsied. - No gross lesions in the entire examined duodenum. Recommendation: - Discharge patient to home. - Resume previous diet. - Continue present medications. - Await pathology results. Procedure Code(s): --- Professional --- 86760, Small intestinal endoscopy, enteroscopy beyond second portion of duodenum, not including ileum; with biopsy, single or multiple CPT copyright 2021 [employer]. All rights reserved. The codes documented in this report are preliminary and upon gis consultant review may be revised to meet current compliance requirements. Sachin Lombardo DO 11/15/2024 12:18:21 PM This report has been signed electronically. Number of Addenda: 0 Note Initiated On: 11/15/2024 11:41 AM
--- NOTE | 2024-11-15 12:23 | OP.PROVAT_ITS ---
11/15/2024 Jose Ramon Turner [address] [place] [address] Re : Colonoscopy procedure for Deven Vega Dear Dr. Turner This procedure was performed on Friday, November 15, 2024. My impressions and recommendations are as follows: Impressions : - Preparation of the colon was poor. - Congested mucosa in the entire examined colon. Biopsied. - Stool in the entire examined colon. - The examined portion of the ileum was normal. - Stool in the distal ileum and in the terminal ileum. Recommendations : - Return patient to [facility] care. - Resume previous diet. - Continue present medications. - Await pathology results. - Repeat colonoscopy because the bowel preparation was poor. -Cholestyramine 4 g at night x 5 days and if his diarrhea is not improved it can be given twice a day. -Consider desonide 9 mg a day if his diarrhea does not improve at all after 3 days My findings are described in the full procedure note, which is enclosed. If I can be of further assistance, please feel free to contact me at . Sincerely, Sachin Lombardo, 11/15/2024 12:22:55 PM This report has been signed electronically.
--- NOTE | 2024-11-15 12:23 | OP.COLON_ITS ---
Patient Name: Deven Vega Procedure Date: 11/15/2024 10:15 AM Date of : 1965 Age: 59 Procedure: Colonoscopy Indications: Chronic diarrhea Providers: Sachin Lombardo DO Medicines: Monitored Anesthesia Care Patient Profile: This is a 59 year old male. Refer to note in patient chart for documentation of history and physical. Last Colonoscopy: several years ago. Complications: No immediate complications. Procedure: Pre-Anesthesia Assessment: - Prior to the procedure, a History and Physical was performed, and patient medications and allergies were reviewed. The patient is competent. The risks and benefits of the procedure and the sedation options and risks were discussed with the patient. All questions were answered and informed consent was obtained. Patient identification and proposed procedure were verified by the physician in the pre-procedure area. Mental Status Examination: alert and oriented. Airway Examination: normal oropharyngeal airway and neck mobility. Respiratory Examination: clear to auscultation. CV Examination: normal. Prophylactic Antibiotics: The patient does not require prophylactic antibiotics. Prior Anticoagulants: The patient has taken no anticoagulant or antiplatelet agents. After reviewing the risks and benefits, the patient was deemed in satisfactory condition to undergo the procedure. The anesthesia plan was to use monitored anesthesia care (MAC). Immediately prior to administration of medications, the patient was re-assessed for adequacy to receive sedatives. The heart rate, respiratory rate, oxygen saturations, blood pressure, adequacy of pulmonary ventilation, and response to care were monitored throughout the procedure. The physical status of the patient was re-assessed after the procedure. After I obtained informed consent, the scope was passed under direct vision. Throughout the procedure, the patient's blood pressure, pulse, and oxygen saturations were monitored continuously. The colonoscope was introduced through the anus and advanced to the terminal ileum. The colonoscopy was performed without difficulty. The patient tolerated the procedure well. The quality of the bowel preparation was poor. The ileocecal valve, appendiceal orifice, and rectum were photographed. Scope In: 11:58:22 AM Scope Withdrawal Time 0 hours 6 minutes 59 seconds Scope Out: 12:07:41 PM Total Procedure Duration Time 0 hours 9 minutes 19 seconds Findings: The perianal and digital rectal examinations were normal. An area of mildly congested mucosa was found in the entire colon. Biopsies for histology were taken with a cold forceps from the entire colon for evaluation of microscopic colitis. Verification of patient identification for the specimen was done. Estimated blood loss was minimal. Liquid semi-liquid semi-solid solid stool was found in the entire colon. The terminal ileum appeared normal. Stool was found in the distal ileum and in the terminal ileum. Many small and large-mouthed diverticula were found in the recto-sigmoid colon and sigmoid colon. Impression: - Preparation of the colon was poor. - Congested mucosa in the entire examined colon. Biopsied. - Stool in the entire examined colon. - The examined portion of the ileum was normal. - Stool in the distal ileum and in the terminal ileum. Recommendation: - Return patient to [facility] for ongoing care. - Resume previous diet. - Continue present medications. - Await pathology results. - Repeat colonoscopy because the bowel preparation was poor. -Cholestyramine 4 g at night x 5 days and if his diarrhea is not improved it can be given twice a day. -Consider desonide 9 mg a day if his diarrhea does not improve at all after 3 days Procedure Code(s): --- Professional --- 69635, Colonoscopy, flexible; with biopsy, single or multiple CPT copyright 2021 [employer]. All rights reserved. The codes documented in this report are preliminary and upon police officer booking review may be revised to meet current compliance requirements. Sachin Lombardo DO 11/15/2024 12:22:55 PM This report has been signed electronically. Number of Addenda: 0 Note Initiated On: 11/15/2024 10:15 AM
--- NOTE | 2024-11-15 13:03 | PCM.POSTANE2 ---
Anesthesia Postop Eval I Sum Postop Eval Completion status Anesthesia document: Postop Eval 1 completed: Yes Anesthesia Postop Eval I Summary Anesthesia Postop Eval I Summary: Anesthesia Postop Eval I: Assessment Summary Airway patent Yes 11/15/24 12:19 [email or web address] Spontaneous unlabored Yes 11/15/24 12:19 [email or web address] respirations Mental status Asleep 11/15/24 12:19 [email or web address] nausea No 11/15/24 12:19 [email or web address] Vomiting No 11/15/24 12:19 [email or web address] Anesthesia Postop Eval I: Fluid Summary Crystalloid volume administer 400 11/15/24 12:19 [email or web address] (ml) Colloids volume administered ( ml) Blood Product volume administered (ml) Total IV fluid infused 400 11/15/24 12:19 [email or web address] Anesthesia Postop Eval I: Summary Notes Anesthesia Complication No 11/15/24 12:19 [email or web address] Anesthesia Complication Comment: Post-operative progress note Anesthesia: Postop Eval II Evaluation Mental status: Awake and Calm Pain Level: 1 nausea: No Vomiting: No Complications Anesthesia Complication: No
[2024-11-15] MEDS: Lactobacillis Acidophilus 1 CAP PO (21:23)
[2024-11-16] VITALS (9 sets, daily range): BP systolic 108–119; BP diastolic 50–87; PULSE 82–97; RESP 16–18; TEMP 36.6–37; O2SAT 94–100; BMI 36.3
[2024-11-16] MEDS: Albuterol 2.5 MG/3 ML VIAL.NEB. INHALATION ×2 (00:16→20:05)
[2024-11-16 05:08] LABS: Hematocrit 34.0 % (40-54); Hemoglobin 11.3 g/dL (13.0-16.5); Immature Granulocytes Count 0.030 X10^3/uL (0.0-0.0); Mean Corp Hgb Conc 33.2 g/dL (32-36); Mean Corpuscular Volume 99.4 fL (80-94); Mean Platelet Vol. 10.4 fl (6.2-12.0); NRBC Flagged by Analyzer 0 % (0-5); POSITIVE MORPHOLOGY YES; Platelet Count 204 K/mm3 (150-450); RBC Distribution Width CV 18.8 % (11.6-14.6); RBC Distribution Width SD 69.0 fl (35.1-43.9); Red Blood Count 3.42 M/mm3 (4.6-6.2); White Blood Count 6.5 K/mm3 (4.4-11.0)
[2024-11-16 05:12] LABS: Differential Indicated SCAN CRITERIA MET
[2024-11-16 05:51] LABS: Anion Gap 9 (5-15); BUN 22 mg/dL (4-19); BUN/Creat Ratio 11.6 RATIO (10-20); Calcium,Total 8.6 mg/dL (7.6-11.0); Carbon Dioxide 21.9 mmol/L (21.0-32.0); Chloride 107 mmol/L (98-108); Estimated Creatinine Clearance 55.09 ml/min (50-250); Glucose 113 mg/dL (70-99); Potassium 4.6 mmol/L (3.3-5.1)
[2024-11-16 05:52] LABS: Differential Comment SCANNED
[2024-11-16 05:53] LABS: Anisocytosis 2+; Macrocytosis 1+; Microcytosis 1+
[2024-11-16] MEDS: Lactobacillis Acidophilus 1 CAP PO ×3 (06:42→21:20)
--- NOTE | 2024-11-16 09:48 | PCM.PN.HOSP ---
Subjective Subjective Feeling little bit better, diarrhea has slowed down slightly. He had a colonoscopy yesterday unfortunately the prep was poor Objective Data Objective Data Vital Signs: Vital Signs Temp Pulse Resp BP Pulse Ox O2 Del Method O2 Flow Rate 98.1 F 97 16 108/70 94 Nasal Cannula 3 11/16/24 09:00 11/16/24 09:00 11/16/24 09:00 11/16/24 09:00 11/16/24 09:41 11/16/24 09:41 11/16/24 09:41 Oxygen Flow Rate (L/min) 3 Oxygen Delivery Method Nasal Cannula Weight: 259 lb 4.218 oz Body Mass Index (BMI) 36.3 Intake & Output: Intake and Output for Last 24 Hours 11/15/24 11/16/24 11/17/24 03:59 03:59 03:59 Intake Total 34.77 / 34.77 750 / 750 Output Total 2 / 2 Balance 34.77 / 34.77 748 / 748 Lab / Micro Data 11/16/24 04:28 11/16/24 04:28 Labs: Laboratory Results - last 24 hr 11/15/24 16:16: POC Glucose 146 H 11/15/24 21:34: POC Glucose 117 H 11/16/24 04:28: WBC 6.5, RBC 3.42 L, Hgb 11.3 L, Hct 34.0 L, MCV 99.4 H, MCH 33.0 H, MCHC 33.2, RDW Std Deviation 69.0 H, RDW Coeff of Lizzie 18.8 H, Plt Count 204, MPV 10.4, Immature Gran % (Auto) 0.500, Neut % (Auto) 65.6, Lymph % (Auto) 17.2 L, [place] % (Auto) 9.3, Eos % (Auto) 7.1 H, Baso % (Auto) 0.3, Absolute Neuts (auto) 4.2, Absolute Lymphs (auto) 1.11, Nucleated RBC % 0, Differential Comment SCANNED, Anisocytosis 2+, Microcytosis 1+, Macrocytosis 1+, Ovalocytes 1+, Sodium 138, Potassium 4.6, Chloride 107, Carbon Dioxide 21.9, Anion Gap 9, BUN 22 H, Creatinine 1.86 H, Estim Creat Clear Calc 55.09, Est GFR (MDRD) Non-Af 41 L, BUN/Creatinine Ratio 11.6, Glucose 113 H, Calcium 8.6 11/16/24 06:42: POC Glucose 85 Micro: Microbiology 11/13/24 05:50 Stool Enteric Bacteriology - Final 11/13/24 05:50 Stool Clostridioides difficile (PCR) - Final 11/13/24 01:53 Mucosa - Nose SARS-CoV-2, Influenza & RSV (PCR) - Final Physical Exam Narrative General: Alert, Oriented x3, Cooperative, No apparent distress HEENT: Atraumatic, PERRLA, EOMI, Normocephalic Oral: Moist Mucosa Neck: Supple, No JVD Lungs: Diminished, Normal air movement, No rhonchi, No wheeze, No rales Cardiovascular: Regular rate, Regular Rhythm, Normal S1, Normal S2, No murmurs Abdomen: Soft, Non Tender, Non-Distended, No Hepato-splenomegaly Extremities: No edema, Capillary Refill Less than 3 Seconds Skin: No rashes, No breakdown Musculoskeletal: No Tenderness to Palpation of Joints or Extremities Neurological: No focal neurological deficits, moves all extremities Psych/Mental Status: Normal Affect, Appropriate Assessment & Plan Assessment/Plan (1) Syncope: PLAN: Plan 1. Syncope secondary to dehydration from severe diarrhea with hypovolemic shock with VIMAL ? This is likely a vasovagal episode ? He did receive a decent amount of fluids and blood pressure was unresponsive so he did temporarily receive Levophed and then was transitioned to oral midodrine since then shock has resolved ?Underwent colonoscopy which had poor prep however concern for possible microscopic colitis. Will continue with cholestyramine and will discuss with GI the need for possible budesonide. ? Given the severity of his diarrhea and the need for pressors, will like to be more cautious and maintain here in the hospital while we improve his diarrhea if possible ? If no significant improvement may reprep and do a colonoscopy while as an inpatient, if he does have improvement in his diarrhea then can discharge and have him with outpatient follow-up with GI ? VIMAL is resolved 2. Chronic systolic CHF/essential HTN/chronic A-fib/HLD ? Will hold his blood pressure medications secondary to his hypotension requiring pressors ? Will monitor his blood pressure make adjustments as necessary ? Will hold his Eliquis ? Continue with Lipitor ? Echo on 09/25/2024 with an EF of 50% with mild concentric LVH 3. CKD 3 in the setting of a right nephrectomy for metastatic renal cancer and type 2 diabetes ? Renal function is back to baseline ? Will hold his home meds ? Sliding scale insulin ? Accu-Cheks ACHS ? Will monitor and make adjustments as necessary 4. Iron deficiency anemia ? Continue with his iron supplementation 5. Anxiety/depression ? Stable ? Continue with his Zoloft 6. GERD ? Stable ? Continue with PPI DVT: SCDs Charges/Coding Visit Charges Inpatient E&M: 37765 Subs Hosp L2
[2024-11-16] MEDS: 0.9% Saline Lock 10 ML Syringe IV (14:37)
--- NOTE | 2024-11-16 14:55 | CHAPLAIN ---
Type of Pastoral Visit _x__ Initial Visit ___ Follow-up Visit ___ On-call Visit ___ General Patient Visit ___ Spiritual Assessment ___ Family Conference ___ Bereavement ___ Rapid Response ___ Code Blue ___ Other (describe below) Pastoral Care Referral From _x__ Patient ___ Family ___ Nurse ___ Physician ___ Contracts Law Professor ___ Rn Primary Care ___ Other (describe below) Sacrament/Intervention _x__ Active listening ___ Anointing ___ Mandaeism ___ Bereavement ___ Communion ___ Maddison exploration ___ ___ Life review _x__ Prayer ___ Reconciliation ___ Sacrament of Sick ___ Supportive presence ___ Wedding ___ Other (describe below) Pastoral Comments patient denies needs or concerns; pt asks for a prayer; no further interventions
[2024-11-17 03:25] VITALS: BP 110/70; PULSE 85; RESP 16; TEMP 36.4; O2SAT 97
[2024-11-17] MEDS: 0.9% Saline Lock 10 ML Syringe IV (03:25)
[2024-11-17 05:38] VITALS: BMI 35.9
[2024-11-17 05:51] LABS: Hematocrit 35.0 % (40-54); Hemoglobin 11.7 g/dL (13.0-16.5); Immature Granulocytes Count 0.040 X10^3/uL (0.0-0.0); Mean Corp Hgb Conc 33.4 g/dL (32-36); Mean Corpuscular Volume 98.9 fL (80-94); Mean Platelet Vol. 10.2 fl (6.2-12.0); NRBC Flagged by Analyzer 0 % (0-5); POSITIVE MORPHOLOGY YES; Platelet Count 180 K/mm3 (150-450); RBC Distribution Width CV 18.7 % (11.6-14.6); RBC Distribution Width SD 68.6 fl (35.1-43.9); Red Blood Count 3.54 M/mm3 (4.6-6.2); White Blood Count 6.7 K/mm3 (4.4-11.0)
[2024-11-17] MEDS: Lactobacillis Acidophilus 1 CAP PO ×3 (06:02→21:27)
[2024-11-17 06:25] LABS: Anion Gap 10 (5-15); BUN 15 mg/dL (4-19); BUN/Creat Ratio 8.8 RATIO (10-20); Calcium,Total 9.1 mg/dL (7.6-11.0); Carbon Dioxide 18.6 mmol/L (21.0-32.0); Chloride 108 mmol/L (98-108); Estimated Creatinine Clearance 58.20 ml/min (50-250); Glucose 93 mg/dL (70-99); Potassium 4.9 mmol/L (3.3-5.1)
[2024-11-17 06:49] LABS: Differential Indicated SCAN CRITERIA MET
[2024-11-17 07:24] LABS: Burr Cells RARE; Differential Comment SCANNED
[2024-11-17 07:25] LABS: Polychromasia RARE
[2024-11-17 08:00] VITALS: BP 108/70; PULSE 71; RESP 16; TEMP 37.1; O2SAT 97
--- NOTE | 2024-11-17 10:28 | PN.HOSP_ITS ---
Subjective Subjective Doing well, says that his diarrhea is a little bit improved. Will touch base with GI Objective Data Objective Data Vital Signs: Vital Signs Temp Pulse Resp BP Pulse Ox O2 Del Method O2 Flow Rate 98.7 F 71 16 108/70 97 Nasal Cannula 3 11/17/24 08:00 11/17/24 08:00 11/17/24 08:00 11/17/24 08:00 11/17/24 08:00 11/17/24 08:06 11/17/24 08:06 Oxygen Flow Rate (L/min) 3 Oxygen Delivery Method Nasal Cannula Weight: 256 lb 2.834 oz Body Mass Index (BMI) 35.9 Intake & Output: Intake and Output for Last 24 Hours 11/16/24 11/17/24 11/18/24 03:59 03:59 03:59 Intake Total 750 / 750 3035.25 / 3035.25 300 / 300 Output Total 2 / 2 Balance 748 / 748 3035.25 / 3035.25 300 / 300 Lab / Micro Data 11/17/24 05:12 11/17/24 05:12 Labs: Laboratory Results - last 24 hr 11/16/24 12:01: POC Glucose 125 H 11/16/24 17:09: POC Glucose 96 11/16/24 21:25: POC Glucose 118 H 11/17/24 05:12: WBC 6.7, RBC 3.54 L, Hgb 11.7 L, Hct 35.0 L, MCV 98.9 H, MCH 33.1 H, MCHC 33.4, RDW Std Deviation 68.6 H, RDW Coeff of Lizzie 18.7 H, Plt Count 180, MPV 10.2, Immature Gran % (Auto) 0.600, Neut % (Auto) 65.9, Lymph % (Auto) 14.5 L, [place] % (Auto) 8.9, Eos % (Auto) 9.8 H, Baso % (Auto) 0.3, Absolute Neuts (auto) 4.4, Absolute Lymphs (auto) 0.98, Nucleated RBC % 0, Differential Comment SCANNED, Platelet Estimate ADEQUATE, Plt Morphology Comment LARGE, Polychromasia RARE, Ovalocytes 1+, [place] Cells RARE, Sodium 136, Potassium 4.9, Chloride 108, C [place]bon Dioxide 18.6 L, Anion Gap 10, BUN 15, Creatinine 1.75 H, Estim Creat Clear Calc 58.20, Est GFR (MDRD) Non-Af 44 L, BUN/Creatinine Ratio 8.8 L, Glucose 93, Calcium 9.1 11/17/24 06:04: POC Glucose 108 H Micro: Microbiology 11/13/24 05:50 Stool Enteric Bacteriology - Final 11/13/24 05:50 Stool Clostridioides difficile (PCR) - Final 11/13/24 01:53 Mucosa - Nose SARS-CoV-2, Influenza & RSV (PCR) - Final Physical Exam Narrative General: Alert, Oriented x3, Cooperative, No apparent distress HEENT: Atraumatic, PERRLA, EOMI, Normocephalic Oral: Moist Mucosa Neck: Supple, No JVD Lungs: Diminished, Normal air movement, No rhonchi, No wheeze, No rales Cardiovascular: Regular rate, Regular Rhythm, Normal S1, Normal S2, No murmurs Abdomen: Soft, Non Tender, Non-Distended, No Hepato-splenomegaly Extremities: No edema, Capillary Refill Less than 3 Seconds Skin: No rashes, No breakdown Musculoskeletal: No Tenderness to Palpation of Joints or Extremities Neurological: No focal neurological deficits, moves all extremities Psych/Mental Status: Normal Affect, Appropriate Assessment & Plan Assessment/Plan (1) Syncope: PLAN: Plan 1. Syncope secondary to dehydration from severe diarrhea with hypovolemic shock with VIMAL ? This is likely a vasovagal episode ? He did receive a decent amount of fluids and blood pressure was unresponsive so he did temporarily receive Levophed and then was transitioned to oral midodrine since then shock has resolved, will discontinue midodrine today ?Underwent colonoscopy which had poor prep however concern for possible microscopic colitis. Will continue with cholestyramine and will discuss with GI the need for possible budesonide. ? Given the severity of his diarrhea and the need for pressors, will like to be more cautious and maintain here in the hospital while we improve his diarrhea if possible ?He had a little bit of improvement in his diarrhea, will discuss with gastroenterology if it worth initiating budesonide or continue with the cholestyramine or if we need to redo prep for colonoscopy on Wednesday ? VIMAL is resolved 2. Chronic systolic CHF/essential HTN/chronic A-fib/HLD ? Will hold his blood pressure medications secondary to his hypotension requiring pressors ? Will monitor his blood pressure make adjustments as necessary ? Will hold his Eliquis ? Continue with Lipitor ? Echo on 09/25/2024 with an EF of 50% with mild concentric LVH 3. CKD 3 in the setting of a right nephrectomy for metastatic renal cancer and type 2 diabetes ? Renal function is back to baseline ? Will hold his home meds ? Sliding scale insulin ? Accu-Cheks ACHS ? Will monitor and make adjustments as necessary 4. Iron deficiency anemia ? Continue with his iron supplementation 5. Anxiety/depression ? Stable ? Continue with his Zoloft 6. GERD ? Stable ? Continue with PPI DVT: SCDs Charges/Coding Visit Charges Inpatient E&M: 24375 Subs Hosp L2
--- NOTE | 2024-11-17 13:56 | CASEMGMT ---
JOHN CM into pt room, pt denies any homegoing needs. Pt states he will have a portable oxygen tank brought in for dc. Pt is on baseline oxygen.
[2024-11-17 14:14] VITALS: BP 112/73; PULSE 90; RESP 16; TEMP 36.7; O2SAT 100
--- NOTE | 2024-11-17 17:49 | PN_ITS ---
Progress Note Diarrhea in this 59-year-old male is likely a side effect of cabozantinib, but semaglutide could also be a contributing factor. Management is supportive care, antidiarrheal medications, and potentially a dose reduction of cabozantinib if the symptoms are severe. His symptoms are slightly better on current regimen. Physical Exam Narrative 59-year-old male is likely a side effect of cabozantinib, but semaglutide could also be a contributing factor. Management should involve supportive care, antidiarrheal medications, and potentially a dose reduction of cabozantinib if the symptoms are severe. Close monitoring is necessary due to the patient's comorbidities and the possibility of serious adverse events.? He underwent upper endoscopy and colonoscopy. He did have some mild inflammation in the stomach and some mild inflammation in the colon. Biopsies were taken and are pending. Eyes conjunctivae normal Resp Effort and Inspection: able to speak in complete sentences and symmetric chest movement Auscultation: clear to auscultation bilaterally GI GI Narrative: ABD soft, non-tender, BS+ x4 Assessment & Plan Assessment/Plan (1) Orthostatic syncope: (2) Diarrhea: (3) Renal cell cancer: QUALIFIERS: Laterality: right Qualified Code(s): C64.1 - Malignant neoplasm of right kidney, except renal pelvis PLAN: Both of the patient's medications can cause or worsen diarrhea. * Cabozantinib (Cabometyx):?Diarrhea is a very common side effect of this medication, occurring in more than 60% of patients in clinical trials. It is caused by the drug's effect on intestinal receptors and can become severe. * Semaglutide (Ozempic/Wegovy):?As a GLP-1 receptor agonist, semaglutide frequently causes gastrointestinal side effects, including nausea and diarrhea. For most people, these side effects are mild and subside as the body adjusts to the medication, but in some cases they can persist or be more severe.? Given that the patient is on a low-dose cabozantinib (20 mg daily), it is possible the diarrhea is a cumulative effect of both medications.? Management plan Step 1: Supportive care and symptom management * Dietary modification:?Recommend a low-fiber, low-fat diet to reduce bowel stimulation. Patients should avoid dairy, spicy foods, caffeine, and alcohol. A bland diet, such as the BRAT diet (bananas, rice, applesauce, toast), can help. * Hydration:?Encourage the patient to drink 8-10 glasses of fluid daily to prevent dehydration, which is a serious risk with persistent diarrhea. Oral rehydration solutions may be necessary. * Loperamide:?Administer loperamide at the onset of diarrhea as directed by a healthcare professional. * Take cholestyramine 4 g at night and 9 mg of budesonide in the morning Step 2: Dose modification of cabozantinib The artificial limb maker's guidelines for cabozantinib side effects recommend dose modification based on the severity of the diarrhea. * Grade 1 diarrhea:?A manageable increase in bowel movements. Standard antidiarrheal medications are typically sufficient. * Grade 2 diarrhea (intolerable) or Grade 3-4 diarrhea: * Hold cabozantinib:?Temporarily stop the medication until the diarrhea resolves or improves to Grade 1. * Reduce dose:?Once symptoms improve, restart cabozantinib at a reduced dose as directed by a healthcare professional. * Lowest dose still not tolerated:?If the patient cannot tolerate the lowest possible dose of cabozantinib, permanent discontinuation of the drug should be considered Assess for alternative causes * Infection:?Consider infectious causes, especially if the diarrhea is accompanied by fever, abdominal pain, or blood in the stool. A stool sample was tested for bacterial pathogens,?Clostridium difficile, and other infectio us agents. * Comorbidities:?The patient's diabetes and age should be considered. Diabetic diarrhea is a possibility, though semaglutide and cabozantinib are much more likely causes.
[2024-11-17] MEDS: Budesonide 3 MG CAPSULE.EC 9 MG PO (17:51)
[2024-11-17 21:00] VITALS: BP 113/79; PULSE 78; RESP 16; TEMP 37; O2SAT 99
[2024-11-18] VITALS: RESP 16
[2024-11-18 03:00] VITALS: BP 116/66; PULSE 86; RESP 16; TEMP 37; O2SAT 100
[2024-11-18 06:00] VITALS: BMI 37.1
[2024-11-18] MEDS: Lactobacillis Acidophilus 1 CAP PO (06:33)
[2024-11-18 09:32] VITALS: BP 100/60; PULSE 81; RESP 19; TEMP 36.8; O2SAT 100
[2024-11-18] MEDS: Budesonide 3 MG CAPSULE.EC 9 MG PO (09:39)
--- NOTE | 2024-11-18 11:10 | DCINST_ITS ---
Discharge Instructions DC O2, CPAP, BIPAP needs Home O2 Discharge instructions: No Dressing / Incision Discharge Activity: Return to Normal Activity Dressing / Incision Call your doctor if you observe: Fever of 101 or Higher, Shortness of breath, Dizziness, Fainting spells, Swelling in the ankles, Chest pain and Increased palpitations (irregular heartbeat) Follow Up Care Test Results: Test results from this visit will be discussed in further detail at your follow- up appointment, if applicable. Discharge Plan Admission Admit Date/Time: 11/13/24 03:44 Attending Provider: Marquise Padilla Primary Care Provider: Bari Turner Consulting Providers: Estelita Lu; Hussein Nolen; Sachin Lombardo; Adrienne Vigil; Kassy Saha; Aurora Chan Instructions Additional Instructions / Restrictions: Follow-up with your oncologist to see if we can do a dose reduction under chemotherapy to help with your diarrhea. Discharge Orders/Prescriptions Prescriptions: New budesonide 3 mg Capsule,Delayed,Extend.Release 9 mg PO DAILY 30 Days Qty: 90 0RF cholestyramine (with sugar) 4 gram Powder In Packet 1 ea PO QHS 60 Days Qty: 60 2RF Continued Ozempic 0.25 mg or 0.5 mg (2 mg/3 mL) pen injector 2 mg subcut QWEEK Eliquis 5 mg tablet 5 mg PO BID Qty: 60 11RF dapagliflozin propanediol [Farxiga] 5 mg tablet 5 mg PO QDAY calcitriol 0.25 mcg capsule 0.25 mcg PO QDAY tizanidine 4 mg capsule 4 mg PO Q8H PRN (Reason: muscle spasticity) (DME) Handicap Placard See Rx Instructions .Route .MEDSUPPLY Qty: 1 0RF Rx Instructions: Exp: 10/13/2028 albuterol sulfate 2.5 mg /3 mL (0.083 %) solution for nebulization 2.5 mg inhalation PRN PRN (Reason: Shortness Of Breath) Qty: 75 0RF pantoprazole 40 mg tablet,delayed release (DR/EC) 40 mg PO DAILY Qty: 30 0RF ferrous sulfate 325 mg (65 mg iron) Tablet 325 mg PO BID Qty: 30 0RF rosuvastatin 40 mg Tablet 40 mg PO DAILY Qty: 30 0RF Trelegy Ellipta 100-62.5-25 mcg blister with device 1 inh inhalation DAILY Qty: 28 0RF loperamide 2 mg capsule 2 mg PO 4X/DAY PRN PRN (Reason: diarrhea) mirtazapine 15 mg tablet 15 mg PO QHS cabozantinib 20 mg tablet 20 mg PO QDAY Held spironolactone 25 mg tablet 25 mg PO DAILY Qty: 90 3RF Hold Instructions: Resume on 11/24/24. losartan 50 mg tablet 50 mg PO DAILY Qty: 90 3RF Hold Instructions: Resume on 11/23/24. bumetanide 2 mg tablet 2 mg PO ONCE Hold Instructions: Resume on 11/21/24. carvedilol 12.5 mg tablet 12.5 mg PO BID Qty: 180 3RF Hold Instructions: Resume on 11/22/24. Referrals / Follow Up: Bari Turner MD [Primary Care Provider] - Within 1 Week Sachin Lombardo DO [Med Staff - Active Staff] - Within 1 Month Disposition Disposition (needs filled in before D/C Order can be placed): Home, Self Care
[2024-11-18] MEDS: Albuterol 2.5 MG/3 ML VIAL.NEB. INHALATION (11:31)
[2024-11-18 11:32] VITALS: PULSE 91; RESP 16
[2024-11-18 11:33] VITALS: O2SAT 99
--- NOTE | 2024-11-18 12:09 | CASEMGMT ---
RN CM called pt RN and asked for a home O2 test be completed to confirm no changes in current order are needed.
[2024-11-18 12:35] VITALS: O2SAT 100; O2SAT 97
--- NOTE | 2024-11-18 13:55 | DS.PCM_ITS ---
Providers Date of Admission: 11/13/24 Primary Care Physician: Dr. Bari Turner MD Consultations 11/13/24 04:50 Consult: Horse Groomer / Pulmonary Medicine Routine Consulting Provider: Intensivists/Pulmonary Med Reason for Consult: Syncopal event, Severe Diarrhea, VIMAL, Hypotension EMERGENT Consult: No Notified: Yes Date Notified: 11/13/24 Time Notified: 05:13 Method of Notification: Text 11/14/24 17:23 Consult: Gastroenterology Routine Consulting Provider: [facility] Reason for Consult: diarrhea EMERGENT Consult: No Notified: Yes Date Notified: 11/14/24 Time Notified: 17:24 Method of Notification: Verbal Reason For Visit: SYNCOPE, VIMAL DIARRHEA Diagnosis Discharge Diagnosis (1) Orthostatic syncope: Status: Acute Code(s): I95.1 - Orthostatic hypotension (2) Diarrhea: Status: Acute Code(s): R19.7 - Diarrhea, unspecified (3) Renal cell cancer: Status: Chronic Code(s): C64.9 - Malignant neoplasm of unspecified kidney, except renal pelvis Qualifiers: Laterality: right Qualified Code(s): C64.1 - Malignant neoplasm of right kidney, except renal pelvis Medications at Discharge Home Medications albuterol sulfate 2.5 mg/3 mL (0.083 %) solution for nebulization 2.5 mg (3 mL) inhalation PRN PRN Shortness Of Breath #75 mL 06/29/22 ferrous sulfate 325 mg (65 mg iron) tablet 325 mg PO BID supplement #30 tabs 06/29/22 fluticasone fur. 100 mcg-umeclid 62.5 mcg-vilant 25 mcg inhalat.powder (Trelegy Ellipta) 1 inh inhalation DAILY breathing #28 ea 06/29/22 pantoprazole 40 mg tablet,delayed release 40 mg PO DAILY gerd #30 tabs 06/29/22 rosuvastatin 40 mg tablet 40 mg PO DAILY cholesterol #30 tabs 06/29/22 losartan 50 mg tablet 50 mg PO DAILY blood pressure #90 tabs 09/29/22 Held on 11/18/24. Instructions: Resume on 11/23/24. spironolactone 25 mg tablet 25 mg PO DAILY diuretic #90 tabs 09/29/22 Held on 11/18/24. Instructions: Resume on 11/24/24. carvedilol 12.5 mg tablet 12.5 mg PO BID blood pressure #180 TABLETS 06/04/24 Held on 11/18/24. Instructions: Resume on 11/22/24. semaglutide 0.25 mg or 0.5 mg (2 mg/3 mL) subcutaneous pen injector (Ozempic) 2 mg subcut QWEEK diabetes 06/20/24 cabozantinib 20 mg tablet 20 mg PO QDAY cancer 08/09/24 apixaban 5 mg tablet (Eliquis) 5 mg PO BID blood thinner #60 tabs 08/14/24 Handicap Placard #1 ea 10/02/24 bumetanide 2 mg tablet 2 mg PO ONCE water pill 10/02/24 Held on 11/18/24. Instructions: Resume on 11/21/24. calcitriol 0.25 mcg capsule 0.25 mcg PO QDAY supplement 10/02/24 dapagliflozin propanediol 5 mg tablet (Farxiga) 5 mg PO QDAY CKD 10/02/24 tizanidine 4 mg capsule 4 mg PO Q8H PRN muscle spasticity 10/02/24 loperamide 2 mg capsule 2 mg PO 4X/DAY PRN PRN diarrhea 10/19/24 mirtazapine 15 mg tablet 15 mg PO QHS antidepressant 10/19/24 ASV - Adaptive Servo Ventilation ([facility] INFORMATIONAL USE ONLY) 11/18/24 OXYGEN - Supplemental ([facility] INFORMATIONAL USE ONLY) 11/18/24 budesonide 3 mg capsule,delayed,extended release 9 mg (3 x 3 mg) PO DAILY 30 days #90 ea 11/18/24 cholestyramine (with sugar) 4 gram powder for susp in a packet 1 ea PO QHS 60 days #60 ea 11/18/24 Hospital Course Operations None Procedures Colonoscopy and EGD Summary of Care Provided Minutes Spent on Discharge: 36 Hospital Course: Per HPI: The patient is a 59 y/o M w/ PMHx: Diabetes mellitus type II, Obesity, PAF, Chronic anemia/Fe deficiency anemia, PAF, CKD stage III unclear subtype per GFR trending, NIMCO on CPAP, HFrEF, HTN, HLD, COPD with Chronic Hypoxic Respiratory Failure (3L NC), GERD, Metastatic renal cell carcinoma to the bone/chest wall mass s/p prior right nephrectomy, recently discharged on 10/21/24 following evaluation for acute on chronic diarrhea with positive occult exacerbated by anticoagulation with hypotension secondary to GI losses/dehydration with diarrhea felt likely related to his Ozempic or Farxiga with improvement in the hospital with unremarkable stool studies with no fever or leukocytosis with temporary hold on his Bumex and Aldactone at discharge for an additional 24 hours then resumption and eventual restart on his Eliquis with outpatient repeat labs who now re-presents to the [facility] ED on 11/13/2024 with episode of syncope while walking to the toilet with continued lightheadedness and dizziness with persistent ongoing diarrhea since his discharge he notes prompting EMS call with significant noted hypotension with systolic in the 50s prompting transition for evaluation. Patient reports that he actually had at least 2 syncopal events the day prior to this event. He does report that he had diarrhea with this medication however he thinks that the addition of his Ozempic versus his Farxiga has made it much worse. Patient upon evaluation notes that he feels significantly improved since initial ED arrival following hydration. Workup in the ED included T97.9, heart rate 63, BP initially 65/52 with a MAP of 56, respiratory rate 18, 95% on 3 L nasal cannula-->BP 91/47 with most recent repeat vitals BP 81/56, respiratory rate 19, heart rate 88, 99% on 3 L nasal cannula, CBC with WC 7.7, hemoglobin 13.8, platelet 325 without marked shift, unremarkable coags aside PT 19.6, CMP with Comvax at 19.4, anion gap 17, BUN/creatinine 38/3.76, GFR 18, D bili 0.31, AST 44 otherwise not marked appearing hepatic profile, magnesium 1.7, phosphorus 3.4, BNP 540, stool occult pending upon request evaluation of patient, chest x-ray with expansile mass associated with the right lateral sixth rib with otherwise no acute cardiopulmonary findings, rapid SARS COVID/influenza/RSV PCR negative, CT of the brain with moderate chronic mucosal inflammatory changes of the left maxillary sinus with associated secretions, CT chest with unchanged expansile lytic/destructive lesion in the axillary portion of the right sixth rib measuring 3.5 x 4.9 cm, moderate coronary calcifications, diffuse spondylosis, unchanged cardiomegaly and unchanged mild pericardial effusion, EKG with rate controlled atrial fibrillation with no acute evidence of ischemia. In the ED patient ministered 2 L normal saline. Hospital Course: 1. Syncope secondary to dehydration from severe diarrhea secondary to microscopic colitis versus chemo induced colitis with hypovolemic shock with VIMAL ? This is likely a vasovagal episode ? He did receive a decent amount of fluids and blood pressure was unresponsive so he did temporarily receive Levophed and then was transitioned to oral midodrine since then shock has resolved, will discontinue midodrine today ?Underwent colonoscopy which had poor prep however concern for possible microscopic colitis versus chemo induced colitis. Will continue with cholestyramine and will discuss with GI the need for possible budesonide. ? Given the severity of his diarrhea and the need for pressors, will like to be more cautious and maintain here in the hospital while we improve his diarrhea if possible ?He states that he had a significant improvement in his diarrhea with the addition of cholestyramine and then the budesonide which he received a dose of last night and then again this morning. I discussed with him the possibility of discharge versus staying another day or 2 to make sure that the diarrhea has significantly improved however he states that he would like to go home. I discussed with him the plan for discharge and he expressed understanding of the risks and benefits of going home and would like to go home today. Will continue with cholestyramine every night as well as budesonide every morning, he will be on a 4 g packet of cholestyramine nightly and he was given a prescription for 30 days, he was also started on budesonide 9 mg and was also given a prescription for 30 days though I do anticipate a follow-up with primary care and gastroenterology to make adjustments as necessary. 2. Chronic systolic CHF/essential HTN/chronic A-fib/HLD ? Will hold his blood pressure medications secondary to his hypotension requiring pressors ? Will monitor his blood pressure make adjustments as necessary ? Will hold his Eliquis ? Continue with Lipitor ? Echo on 09/25/2024 with an EF of 50% with mild concentric LVH ? I have staggered the resumption of his blood pressure medications over the next week given the fact that he was hypotensive and requiring pressors here in the hospital during his stay. 3. CKD 3 in the setting of a right nephrectomy for metastatic renal cancer and type 2 diabetes ? Renal function is back to baseline ? Will hold his home meds ? Sliding scale insulin ? Accu-Cheks ACHS ? Will monitor and make adjustments as necessary ? Creatinine improved to 1.75 on discharge 4. Iron deficiency anemia ? Continue with his iron supplementation 5. Anxiety/depression ? Stable ? Continue with his Zoloft 6. GERD ? Stable ? Continue with PPI Physical Exam Narrative General: Alert, Oriented x3, Cooperative, No apparent distress HEENT: Atraumatic, PERRLA, EOMI, Normocephalic Oral: Moist Mucosa Neck: Supple, No JVD Lungs: Diminished, Normal air movement, No rhonchi, No wheeze, No rales Cardiovascular: Regular rate, Regular Rhythm, Normal S1, Normal S2, No murmurs Abdomen: Soft, Non Tender, Non-Distended, No Hepato-splenomegaly Extremities: No edema, Capillary Refill Less than 3 Seconds Skin: No rashes, No breakdown Musculoskeletal: No Tenderness to Palpation of Joints or Extremities Neurological: No focal neurological deficits, moves all extremities Psych/Mental Status: Normal Affect, Appropriate Weight / BMI Weight Weight: 265 lb 6.985 oz Body Mass Index (BMI) 37.1 ABG / Lab / Microbiology Data 11/17/24 05:12 11/17/24 05:12 Laboratory: Laboratory Results - last 24 hr 11/17/24 16:22: POC Glucose 133 H 11/17/24 21:38: POC Glucose 134 H 11/18/24 06:31: POC Glucose 121 H 11/18/24 11:47: POC Glucose 129 H Microbiology: Microbiology 11/13/24 05:50 Stool Enteric Bacteriology - Final 11/13/24 05:50 Stool Clostridioides difficile (PCR) - Final 11/13/24 01:53 Mucosa - Nose SARS-CoV-2, Influenza & RSV (PCR) - Final D/C Instructions Call your doctor if you observe: Fever of 101 or Higher, Shortness of breath, Dizziness, Fainting spells, Swelling in the ankles, Chest pain and Increased palpitations (irregular heartbeat) DC O2, CPAP, BIPAP Needs Home O2 Discharge instructions: No Meaningful Use Info Meaningful Use Meaningful Use Diagnoses (Choose all that apply): None applicable Discharge Plan Admission Admit Date/Time: 11/13/24 03:44 Attending Provider: Marquise Padilla Primary Care Provider: Bari Turner Consulting Providers: Estelita Lu; Hussein Nolen; Friend,Sachin; Adrienne Vigil; Kassy Saha; Aurora Chan Instructions Additional Instructions / Restrictions: Follow-up with your oncologist to see if we can do a dose reduction under chemotherapy to help with your diarrhea. Discharge Orders/Prescriptions Prescriptions: New budesonide 3 mg Capsule,Delayed,Extend.Release 9 mg PO DAILY 30 Days Qty: 90 0RF cholestyramine (with sugar) 4 gram Powder In Packet 1 ea PO QHS 60 Days Qty: 60 2RF Continued Ozempic 0.25 mg or 0.5 mg (2 mg/3 mL) pen injector 2 mg subcut QWEEK Eliquis 5 mg tablet 5 mg PO BID Qty: 60 11RF dapagliflozin propanediol [Farxiga] 5 mg tablet 5 mg PO QDAY calcitriol 0.25 mcg capsule 0.25 mcg PO QDAY tizanidine 4 mg capsule 4 mg PO Q8H PRN (Reason: muscle spasticity) (DME) Handicap Placard See Rx Instructions .Route .MEDSUPPLY Qty: 1 0RF Rx Instructions: Exp: 10/13/2028 albuterol sulfate 2.5 mg /3 mL (0.083 %) solution for nebulization 2.5 mg inhalation PRN PRN (Reason: Shortness Of Breath) Qty: 75 0RF pantoprazole 40 mg tablet,delayed release (DR/EC) 40 mg PO DAILY Qty: 30 0RF ferrous sulfate 325 mg (65 mg iron) Tablet 325 mg PO BID Qty: 30 0RF rosuvastatin 40 mg Tablet 40 mg PO DAILY Qty: 30 0RF Trelegy Ellipta 100-62.5-25 mcg blister with device 1 inh inhalation DAILY Qty: 28 0RF loperamide 2 mg capsule 2 mg PO 4X/DAY PRN PRN (Reason: diarrhea) mirtazapine 15 mg tablet 15 mg PO QHS cabozantinib 20 mg tablet 20 mg PO QDAY Held spironolactone 25 mg tablet 25 mg PO DAILY Qty: 90 3RF Hold Instructions: Resume on 11/24/24. losartan 50 mg tablet 50 mg PO DAILY Qty: 90 3RF Hold Instructions: Resume on 11/23/24. bumetanide 2 mg tablet 2 mg PO ONCE Hold Instructions: Resume on 11/21/24. carvedilol 12.5 mg tablet 12.5 mg PO BID Qty: 180 3RF Hold Instructions: Resume on 11/22/24. No Action (DME) OXYGEN - Supplemental ([facility] INFORMATIONAL USE ONLY) Gas See Rx Instructions .ROUTE Patient Comments: Per patient 3lpm NC, #lpm bleed in on ASV HS Rx Instructions: As directed (DME) ASV - Adaptive Servo Ventilation ([facility] INFORMATIONAL USE ONLY) Device See Rx Instructions .ROUTE Patient Comments: Per pt: Epap 6, Min PS 5, Max PS 15, L nasal pillows, 3lpm bleed in Rx Instructions: As directed Referrals / Follow Up: Bari Turner MD [Primary Care Provider] - Within 1 Week Friend,DO Sachin [Med Staff - Active Staff] - Within 1 Month Disposition Disposition (needs filled in before D/C Order can be placed): Home, Self Care Charges/Coding Visit Charges Inpatient E&M: 90734 Disch Hosp >30min
== END 2024-11-18 13:40 | disposition home or self-care (01) | DRG 640 ==
LOC: ED 03:51 → ICU 04:02 → MS3 11-15 14:48
PROVIDERS: Internal Medicine Gastroenterology; Admitting Provider Family Medicine; Emergency Provider Emergency Medicine; PCP Family Medicine; Visit Provider Family Medicine
PROC: 0DJD8ZZ Inspection of Lower Intestinal Tract, Via Natural or Artificial Opening Endoscopic (ICD-10-PCS; CPT 45378; principal; 2024-11-15 11:25)
DX: E86.0 Dehydration (principal); R57.1 Hypovolemic shock; C79.51 Secondary malignant neoplasm of bone; J96.11 Chronic respiratory failure with hypoxia; C64.1 Malignant neoplasm of right kidney, except renal pelvis; N17.9 Acute kidney failure, unspecified; K76.6 Portal hypertension; I13.0 Hypertensive heart and chronic kidney disease with heart failure and stage 1 through stage 4 chronic kidney disease, or unspecified chronic kidney disease; I48.20 Chronic atrial fibrillation, unspecified; I50.22 Chronic systolic (congestive) heart failure; I85.00 Esophageal varices without bleeding; E11.22 Type 2 diabetes mellitus with diabetic chronic kidney disease; D50.9 Iron deficiency anemia, unspecified; J44.9 Chronic obstructive pulmonary disease, unspecified; N18.30 Chronic kidney disease, stage 3 unspecified; F32.A Depression, unspecified; E66.9 Obesity, unspecified; R19.7 Diarrhea, unspecified; E78.5 Hyperlipidemia, unspecified; G47.33 Obstructive sleep apnea (adult) (pediatric); F17.210 Nicotine dependence, cigarettes, uncomplicated; K21.9 Gastro-esophageal reflux disease without esophagitis; K29.00 Acute gastritis without bleeding; K31.89 Other diseases of stomach and duodenum; F41.9 Anxiety disorder, unspecified; K57.30 Diverticulosis of large intestine without perforation or abscess without bleeding; K29.50 Unspecified chronic gastritis without bleeding; Z79.01 Long term (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 of 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; Z79.899 Other long term (current) drug therapy; Z79.85 Long-term (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 of injectable non-insulin antidiabetic drugs; Z79.51 Long term (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 of inhaled steroids; Z79.84 Long term (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 of oral hypoglycemic drugs; Z90.5 Acquired absence of kidney; Z68.33 Body mass index [BMI] 33.0-33.9, adult
CPT/HCPCS: 36415; 36569; 70450; 71045; 71250; 80048; 80053; 80076; 81001; 82570; 82962; 83735; 83880; 84100; 84145; 84300; 85025; 85610; 85730; 86850; 86900; 86901; 87177; 87209; 87493; 87506; 87631; 88305; 88342; 93005; 94002; 94003; 94640; 94668; 97802; 99285; A4216; J2405

== ENCOUNTER → 2024-12-04 | Outpatient (CLI) | payer MEDICARE, SELFPAY ==
[2024-12-04 20:03] LABS: Creatinine, Urine (random) 40.10 mg/dL (39.00-259.00); Microalbumin,Random Urine < 12.0 mg/L (<20 mg/L)
== END | disposition home or self-care (01) ==
LOC: LABSPEC 15:42
PROVIDERS: PCP Family Medicine; Visit Provider Family Medicine
DX: E11.9 Type 2 diabetes mellitus without complications (principal)
CPT/HCPCS: 82043; 82570

== ENCOUNTER → 2024-12-11 | Outpatient (CLI) | payer MEDICARE, SELFPAY ==
--- NOTE | 2024-12-11 13:54 | CT_ITS ---
PROCEDURE: CT CHEST, ABD, PEL W/CONTRAST 12/11/2024 REASON FOR EXAM: KIDNEY CA-IV ONLY TECHNIQUE: Chest, abdomen and pelvis CT with intravenous contrast. Coronal and Sagittal reconstruction series were provided. One or more dose reduction techniques were used (e.g., Automated exposure control, adjustment of the mA and/or kV according to patient size, use of iterative reconstruction technique. COMPARISON: 2022 FINDINGS: Evaluation of the chest demonstrates no pulmonary masses or fibrosis. Expansile lesion in the right 7th rib is again seen. No new expansile rib lesions are detected. No axillary adenopathy. No aortic aneurysm. Mild coronary artery calcification. No pericardial fluid. No liver or splenic masses. Normal pancreas and left kidney. Right kidney surgically absent. Normal gallbladder. Normal appendix. There is an infrarenal abdominal aortic aneurysm with a maximum diameter of 4.4 cm which has increased from 4.3 mm by my measurement on the scan dated 06/13/2024. No pelvic mass. No free-fluid. No free air. No lytic lesions in the pelvis. Normal sacrum. Normal iliac bone. Stable abnormality of the L4 spinous process. CT/CT Chest, Abd, Pel w/Contrast IMPRESSION: Stable examination compared to prior Reading Location: [facility]
== END | disposition home or self-care (01) ==
PROVIDERS: PCP Family Medicine; Referring Provider Internal Medicine Medical Oncology; Visit Provider Internal Medicine Medical Oncology
DX: C64.1 Malignant neoplasm of right kidney, except renal pelvis (principal)
CPT/HCPCS: 71260; 74177; Q9967; A4216

== ENCOUNTER → 2024-12-18 | Outpatient (CLI) | payer MEDICARE, SELFPAY ==
[2024-12-18 14:11] LABS: Hematocrit 45.8 % (40-54); Hemoglobin 14.9 g/dL (13.0-16.5); Immature Granulocytes Count 0.020 X10^3/uL (0.0-0.0); Mean Corp Hgb Conc 32.5 g/dL (32-36); Mean Corpuscular Volume 100.9 fL (80-94); Mean Platelet Vol. 10.3 fl (6.2-12.0); NRBC Flagged by Analyzer 0 % (0-5); Platelet Count 192 K/mm3 (150-450); RBC Distribution Width CV 16.9 % (11.6-14.6); RBC Distribution Width SD 62.4 fl (35.1-43.9); Red Blood Count 4.54 M/mm3 (4.6-6.2); White Blood Count 7.1 K/mm3 (4.4-11.0)
[2024-12-18 14:38] LABS: PTHIN 209 pg/mL (11-61)
[2024-12-18 14:40] LABS: AST(SGOT) 38 U/L (<=37); Alanine Aminotransfer ALT/SGPT 52 U/L (<=46); Albumin, Serum 3.9 g/dL (3.4-4.8); Alkaline Phosphatase 57 U/L (40-129); Anion Gap 14 (5-15); BUN 23 mg/dL (4-19); BUN/Creat Ratio 11.8 RATIO (10-20); Calcium,Total 10.1 mg/dL (7.6-11.0); Carbon Dioxide 20.8 mmol/L (21.0-32.0); Chloride 100 mmol/L (98-108); Globulin 3.4 g/dL (2.2-4.2); Glucose 112 mg/dL (70-99); LDH 396 U/L (87-241); Potassium 4.7 mmol/L (3.3-5.1)
[2024-12-18 14:46] LABS: Iron 63 ug/dL (65-175)
== END | disposition home or self-care (01) ==
LOC: LAB 13:13
PROVIDERS: PCP Family Medicine; Referring Provider Internal Medicine Medical Oncology; Visit Provider Internal Medicine Medical Oncology
DX: C64.9 Malignant neoplasm of unspecified kidney, except renal pelvis (principal); C79.51 Secondary malignant neoplasm of bone; E11.22 Type 2 diabetes mellitus with diabetic chronic kidney disease; N18.30 Chronic kidney disease, stage 3 unspecified
CPT/HCPCS: 36415; 80053; 83540; 83615; 83970; 84443; 85025